=== PATIENT | male | born 1940 | race Two or more races ===

== ENCOUNTER 2023-06-23 15:36 | Outpatient (RCR) | payer OTHER, SELFPAY | END 2023-07-14 15:49 | disposition home or self-care (01) | LOC: MM 15:36 | PROVIDERS: Visit Provider Internal Medicine | DX: Z51.81 Encounter for therapeutic drug level monitoring (principal); Z79.01 Long term (current) use of anticoagulants; I48.20 Chronic atrial fibrillation, unspecified ==

== ENCOUNTER 2023-07-19 09:17 | Outpatient (OUT) | payer OTHER, SELFPAY ==
[2023-07-19 10:03] LABS: INR 2.19; Prothrombin Time 22.2 sec (9.0-11.6)
== END 2023-07-19 09:18 | disposition home or self-care (01) ==
LOC: LAB 09:19
PROVIDERS: Family Medicine
DX: Z51.81 Encounter for therapeutic drug level monitoring (principal); I48.20 Chronic atrial fibrillation, unspecified; Z79.01 Long term (current) use of anticoagulants
CPT/HCPCS: 36415; 85610

== ENCOUNTER 2023-08-15 02:15 | Outpatient (RCR) | payer OTHER, SELFPAY | END 2023-09-13 17:32 | disposition home or self-care (01) | LOC: MM 02:15 | PROVIDERS: Visit Provider Internal Medicine | DX: Z51.81 Encounter for therapeutic drug level monitoring (principal); Z79.01 Long term (current) use of anticoagulants; I48.20 Chronic atrial fibrillation, unspecified | CPT/HCPCS: 85610; G0463 ==

== ENCOUNTER 2023-08-21 14:45 | Inpatient (IN) | payer OTHER, SELFPAY ==
[2023-08-21] VITALS (11 sets, daily range): BP systolic 150–172; BP diastolic 72–87; PULSE 69–87; RESP 18–20; TEMP 36.8–36.9; O2SAT 95–99; BMI 24.4; BMI 24.8
--- NOTE | 2023-08-21 14:53 | CT_ITS ---
The [address] [address] Patient Name: INDIANA ZABALA MRN: [id number] date: 1940 Sex: M Assigned Patient Location: ER Current Patient Location: ER Accession/Order Number: [id number] Exam Date: 08/21/2023 14:50 Report Date: 08/21/2023 15:13 At the request of: KAYE BARNETT Procedure: CT stroke head/brain wo con EXAM: CT stroke head/brain wo con HISTORY: Altered mental status COMPARISON: None. TECHNIQUE: Axial CT scans through the head were obtained without IV contrast administration. Dose reduction techniques were achieved by using: automated exposure control and/or adjustment of mA and /or kV according to patient size and/or use of iterative reconstruction technique. FINDINGS: There is no evidence of acute intracranial hemorrhage or abnormal extra-axial fluid collection. No mass effect or midline shift is seen. There is no evidence of large acute territorial infarction. There is no hydrocephalus. Moderate enlargement of the ventricles and sulci, consistent with age appropriate cerebral atrophy. Mild low-attenuation patchy areas are present in supratentorial white matter, likely represents chronic microvascular ischemia. There are atherosclerotic calcifications of intracranial carotid arteries. To the limit of CT, the posterior fossa appears unremarkable. No definite acute fracture is identified. Soft tissues are unremarkable. The visualized orbits show no abnormal mass. There is small air-fluid level in the partially visualized right maxillary sinus and partial opacifications of ethmoid air cells.. Mastoid air cells are clear. CT/CT stroke head/brain wo con IMPRESSION: No CT evidence of acute intracranial abnormality. If there is sufficient clinical concern for acute brain parenchymal pathology, consider MRI for further evaluation. Moderate cerebral atrophy. Incidental small air-fluid level in the partially visualized right maxillary sinus, suggestive of acute sinusitis. Electronically authenticated by: BENEDICT FROST Date: 08/21/2023 15:13
[2023-08-21 14:58] LABS: Glucometer 88 mg/dL (74-106)
--- NOTE | 2023-08-21 15:00 | ED_ITS ---
HPI - Neuro Symptoms/Deficit General Chief Complaint: Neuro Symptoms/Deficit Stated Complaint: CVA SYMPTOMS/ALTERED MENTAL STATUS Time Seen by Provider: 08/21/23 14:56 Mode of arrival: ambulance History of Present Illness HPI Narrative: Patient brought in by EMS after the noticed that the patient had slurred speech and was acutely confused. EMS reported normal blood sugar = 94 No recent injury/fall. Related Data Home Medications Medication Instructions Recorded Confirmed atenolol 25 mg tablet 25 mg PO DAILY 08/21/23 08/21/23 glimepiride 2 mg tablet 2 mg PO DAILY 08/21/23 08/21/23 levothyroxine 25 mcg tablet 25 mcg PO QAM 08/21/23 08/21/23 meloxicam 15 mg tablet 15 mg PO DAILY 08/21/23 08/21/23 omeprazole 40 mg capsule,delayed 40 mg PO DAILY 08/21/23 08/21/23 release pravastatin 40 mg tablet 40 mg PO DAILY 08/21/23 08/21/23 sildenafil 100 mg tablet 100 mg PO DAILY PRN sexual activity 08/21/23 08/21/23 tamsulosin 0.4 mg capsule 0.4 mg PO DAILY 08/21/23 08/21/23 warfarin 5 mg tablet (Jantoven) 5 mg PO DAILY 08/21/23 08/21/23 Allergies Allergy/AdvReac Type Severity Reaction Status Date / Time No Known Drug Allergies Allergy Verified 08/21/23 15:00 [facility] Medical History (Updated 08/21/23 @ 16:58 by Kaye Barnett) Atrial fibrillation ?I48.91 - Unspecified atrial fibrillation (ICD-10) Diabetes ?E11.9 - Type 2 diabetes mellitus without complications (ICD-10) High cholesterol ?E78.00 - Pure hypercholesterolemia, unspecified (ICD-10) Exam Narrative Exam Narrative: Nurses notes and vital signs reviewed and patient is not hypoxic. afebrile General: Well-appearing and in no apparent distress. GCS = 15 Skin: Warm, dry, no pallor noted. No rash. Head: Normocephalic, atraumatic. Neck: Supple, non-tender. Eye: Pupils are equal, round and EOMI. No scleral icterus. Ears, Nose, Mouth, and Throat: TM are clear, no nasal mucosal hypertrophy. Oral mucosa is moist, no posterior oropharynx erythema, uvula is mid-line Cardiovascular: Regular Rate and Rhythm without murmur, gallop or rub. Respiratory: No accessory muscle use or respiratory distress. Lungs are clear to auscultation, no wheezing, rales or rhonchi Chest Wall: no tenderness Back: No midline thoracic or lumbar vertebral tenderness. No CVA tenderness Musculoskeletal: normal ROM, no calf or popliteal tenderness, no lower extremity edema/swelling GI: Abdomen is soft, non-distended. Normal bowel sounds. No masses appreciated. No tenderness to palpation. No rebound, guarding, or rigidity noted. Neurological: Alert. oriented to name only. Does not know time. Cannot answer some questions. No slurred speech is noted.. No facial asymmetry or cranial nerve dysfunction observed. No truncal ataxia. follows commands.Moves all extremities with expected strength. No pronator drift. No lower extremity drift.. Sensation intact. no neglect. Has difficulty repeating words that I asked him to remember Psychiatric: Cooperative and interactive. Normal mood and affect. Constitutional Vital Signs, click to edit/add: Last Vital Signs Temp 98.2 F 08/21/23 14:50 Pulse 87 08/21/23 16:19 Resp 20 08/21/23 16:19 BP 168/81 H 08/21/23 16:19 Pulse Ox 99 08/21/23 16:19 O2 Del Method Room Air 08/21/23 15:18 Course Vital Signs Vital signs: Vital Signs Temperature 98.2 F 08/21/23 14:50 Pulse Rate 81 08/21/23 14:50 Respiratory Rate 18 08/21/23 14:50 Blood Pressure 150/79 H 08/21/23 14:50 Pulse Oximetry 97 08/21/23 14:50 Oxygen Delivery Method Room Air 08/21/23 14:50 Temperature 98.2 F 08/21/23 14:50 Pulse Rate 87 08/21/23 16:19 Respiratory Rate 20 08/21/23 16:19 Blood Pressure 168/81 H 08/21/23 16:19 Pulse Oximetry 99 08/21/23 16:19 Oxygen Delivery Method Room Air 08/21/23 15:18 MDM - Neuro Symptoms/Deficit MDM Narrative Medical decision making narrative: the patient was immediately sent for noncontrast CT scanning of the brain per stroke protocol. Patient was placed on groundwater monitoring technician and EKG obtained. Blood drawn and sent for evaluation. noncontrast CT did not show acute cranial pathology that might account for patient's symptoms. His blood testing showed low sodium at 121. The remainder of his testing was essentially unremarkable aside from minimally low magnesium. He was given normal saline IV fluid for his low sodium and also given IV magnesium. I discussed the results with the patient's as the patient was too confused to understand. He will be admitted to Dr. Trammell's service, [facility], inpatient, telemetry monitoring for further treatment and evaluation of his hyponatremia and confusion. Lab Data Attestation: I reviewed the patient's lab results. Labs: Lab Results 08/21/23 08/21/23 08/21/23 Range/Units 03:22 14:57 15:11 WBC 6.3 (4.0-11.0) 10^3/uL RBC 4.04 L (4.70-6.10) 10^6/uL Hgb 12.9 L (14.0-18.0) g/dL Hct 36.2 L (42.0-54.0) % MCV 89.6 (80.0-94.0) fL MCH 31.9 (25.9-34.0) pg MCHC 35.6 H (29.9-35.2) g/dL RDW 11.9 (11.0-15.0) % Plt Count 155 (150-450) 10^3/uL MPV 11.1 (9.5-13.5) fL Neut % (Auto) 65.9 (43.0-75.0) % Lymph % (Auto) 20.9 (20.5-60.0) % [place] % (Auto) 11.1 (1.7-12.0) % Eos % (Auto) 1.1 (0.9-7.0) % Baso % (Auto) 0.8 (0.2-2.0) % Neut # (Auto) 4.2 (1.4-6.5) 10^3/uL Lymph # (Auto) 1.3 (1.2-3.8) 10^3/uL [place] # (Auto) 0.7 (0.3-0.8) 10^3/uL Eos # (Auto) 0.1 (0.0-0.7) 10^3/uL Baso # (Auto) 0.1 (0.0-0.1) 10^3/uL Abs Immat Gran (auto) 0.01 (0.00-0.03) 10^3/uL Imm/Tot Granulo (auto) 0.2 (0.0-0.5) % Sodium 121 L* (136-145) mmol/L Potassium 4.8 (3.5-5.1) mmol/L Chloride 87 L (98-107) mmol/L Carbon Dioxide 25.6 (21.0-32.0) mmol/L Anion Gap 13.2 BUN 12.0 (7.0-18.0) mg/dL Creatinine 0.92 (0.70-1.30) mg/dL Est GFR ( Amer) >60 (>=60) Est GFR (Non-Af Amer) >60 (>=60) BUN/Creatinine Ratio 13.0 Glucose 85 (74-106) mg/dL Calcium 8.9 (8.5-10.1) mg/dL Magnesium 1.6 L (1.8-2.4) mg/dL Total Bilirubin 1.4 H (0.2-1.0) mg/dL AST 30 (15-37) U/L ALT 24 (16-63) U/L Alkaline Phosphatase 87 (46-116) U/L Ammonia (11-32) umol/L Troponin I High Sens 9.2 (4.0-76.1) pg/mL Total Protein 7.1 (6.4-8.2) g/dL Albumin 4.0 (3.4-5.0) g/dL Globulin 3.1 g/dL Albumin/Globulin Ratio 1.3 TSH 2.018 (0.358-3.740) uIU/mL Urine Color Lt. yellow (YELLOW) Urine Clarity Clear (CLEAR) Urine pH 7.0 (5.0-9.0) Ur Specific [place] 1.020 (1.005-1.025) Urine Protein Negative (NEG/TRACE) mg/dL Urine Glucose (UA) Negative (NEGATIVE) mg/dL Urine Ketones 40 A (NEGATIVE) mg/dL Urine Occult Blood Negative (NEGATIVE) Urine Nitrite Negative (NEGATIVE) Urine Bilirubin Negative (NEGATIVE) Urine Urobilinogen 1.0 (0.2-1.0) EU/dL Ur Leukocyte Esterase Negative (NEGATIVE) Urine Opiates Screen Negative (NEGATIVE) Ur Buprenorphine Scrn Negative (NEGATIVE) Ur Oxycodone Screen Negative (NEGATIVE) Urine Methadone Screen Negative (NEGATIVE) Ur Propoxyphene Screen Negative (NEGATIVE) Ur Barbiturates Screen Negative (NEGATIVE) U Tricyclic Antidepress Negative (NEGATIVE) Ur Phencyclidine Scrn Negative (NEGATIVE) Ur Amphetamines Screen Negative (NEGATIVE) U Methamphetamines Scrn Negative (NEGATIVE) U Benzodiazepines Scrn Negative (NEGATIVE) Urine Cocaine Screen Negative (NEGATIVE) U Cannabinoids Screen Negative (NEGATIVE) Ethanol Quant <3 mg/dL POC Glucose 88 (74-106) mg/dL 08/21/23 Range/Units 15:39 WBC (4.0-11.0) 10^3/uL RBC (4.70-6.10) 10^6/uL Hgb (14.0-18.0) g/dL Hct (42.0-54.0) % MCV (80.0-94.0) fL MCH (25.9-34.0) pg MCHC (29.9-35.2) g/dL RDW (11.0-15.0) % Plt Count (150-450) 10^3/uL MPV (9.5-13.5) fL Neut % (Auto) (43.0-75.0) % Lymph % (Auto) (20.5-60.0) % [place] % (Auto) (1.7-12.0) % Eos % (Auto) (0.9-7.0) % Baso % (Auto) (0.2-2.0) % Neut # (Auto) (1.4-6.5) 10^3/uL Lymph # (Auto) (1.2-3.8) 10^3/uL [place] # (Auto) (0.3-0.8) 10^3/uL Eos # (Auto) (0.0-0.7) 10^3/uL Baso # (Auto) (0.0-0.1) 10^3/uL Abs Immat Gran (auto) (0.00-0.03) 10^3/uL Imm/Tot Granulo (auto) (0.0-0.5) % Sodium (136-145) mmol/L Potassium (3.5-5.1) mmol/L Chloride (98-107) mmol/L Carbon Dioxide (21.0-32.0) mmol/L Anion Gap BUN (7.0-18.0) mg/dL Creatinine (0.70-1.30) mg/dL Est GFR ( Amer) (>=60) Est GFR (Non-Af Amer) (>=60) BUN/Creatinine Ratio Glucose (74-106) mg/dL Calcium (8.5-10.1) mg/dL Magnesium (1.8-2.4) mg/dL Total Bilirubin (0.2-1.0) mg/dL AST (15-37) U/L ALT (16-63) U/L Alkaline Phosphatase (46-116) U/L Ammonia 15 (11-32) umol/L Troponin I High Sens (4.0-76.1) pg/mL Total Protein (6.4-8.2) g/dL Albumin (3.4-5.0) g/dL Globulin g/dL Albumin/Globulin Ratio TSH (0.358-3.740) uIU/mL Urine Color (YELLOW) Urine Clarity (CLEAR) Urine pH (5.0-9.0) Ur Specific [place] (1.005-1.025) Urine Protein (NEG/TRACE) mg/dL Urine Glucose (UA) (NEGATIVE) mg/dL Urine Ketones (NEGATIVE) mg/dL Urine Occult Blood (NEGATIVE) Urine Nitrite (NEGATIVE) Urine Bilirubin (NEGATIVE) Urine Urobilinogen (0.2-1.0) EU/dL Ur Leukocyte Esterase (NEGATIVE) Urine Opiates Screen (NEGATIVE) Ur Buprenorphine Scrn (NEGATIVE) Ur Oxycodone Screen (NEGATIVE) Urine Methadone Screen (NEGATIVE) Ur Propoxyphene Screen (NEGATIVE) Ur Barbiturates Screen (NEGATIVE) U Tricyclic Antidepress (NEGATIVE) Ur Phencyclidine Scrn (NEGATIVE) Ur Amphetamines Screen (NEGATIVE) U Methamphetamines Scrn (NEGATIVE) U Benzodiazepines Scrn (NEGATIVE) Urine Cocaine Screen (NEGATIVE) U Cannabinoids Screen (NEGATIVE) Ethanol Quant mg/dL POC Glucose (74-106) mg/dL Imaging Data CT scan - head: Radiologist's impression: Patient Name: INDIANA ZABALA MRN: [facility]:[id number] date: 1940 Sex: M Assigned Patient Location: ER Current Patient Location: ER Accession/Order Number: [id number] Exam Date: 08/21/2023 14:50 Report Date: 08/21/2023 15:13 At the request of: KAYE BARNETT Procedure: CT stroke head/brain wo con EXAM: CT stroke head/brain wo con HISTORY: Altered mental status COMPARISON: None. TECHNIQUE: Axial CT scans through the head were obtained without IV contrast administration. Dose reduction techniques were achieved by using: automated exposure control and/or adjustment of mA and /or kV according to patient size and/or use of iterative reconstruction technique. FINDINGS: There is no evidence of acute intracranial hemorrhage or abnormal extra-axial fluid collection. No mass effect or midline shift is seen. There is no evidence of large acute territorial infarction. There is no hydrocephalus. Moderate enlargement of the ventricles and sulci, consistent with age appropriate cerebral atrophy. Mild low-attenuation patchy areas are present in supratentorial white matter, likely represents chronic microvascular ischemia. There are atherosclerotic calcifications of intracranial carotid arteries. To the limit of CT, the posterior fossa appears unremarkable. No definite acute fracture is identified. Soft tissues are unremarkable. The visualized orbits show no abnormal mass. There is small air-fluid level in the partially visualized right maxillary sinus and partial opacifications of ethmoid air cells.. Mastoid air cells are clear. IMPRESSION: No CT evidence of acute intracranial abnormality. If there is sufficient clinical concern for acute brain parenchymal pathology, consider MRI for further evaluation. Moderate cerebral atrophy. Incidental small air-fluid level in the partially visualized right maxillary sinus, suggestive of acute sinusitis. Electronically authenticated by: BENEDICT UNLU Date: 08/21/2023 15:13 Chest x-ray: Radiologist's impression: Patient Name: INDIANA ZABALA MRN: [id number] date: 1940 Sex: M Assigned Patient Location: ER Current Patient Location: ER Accession/Order Number: [id number] Exam Date: 08/21/2023 15:12 Report Date: 08/21/2023 15:31 At the request of: KAYE BARNETT Procedure: XR chest 1V XR chest 1V CLINICAL HISTORY: altered mentation. COMPARISON: None Available. TECHNIQUE: Single AP portable upright view of the chest. FINDINGS: Lungs are hyperinflated and clear. No pleural effusion or pneumothorax. Cardiomediastinal silhouette size is normal. Atherosclerotic aorta. Osteopenia. Thoracic spondylosis. Anterior cervical spinal fusion hardware. IMPRESSION: No acute cardiopulmonary process. Electronically authenticated by: CHALINO LONDON Date: 08/21/2023 15:31 ECG Data Interpretation: EKG interpretation: Emergency Department physician interpretation. rate controlled atrial fibrillation at 79bpm. Left axis, no ST segment elevation or depression. Discharge Plan Discharge Chief Complaint: Neuro Symptoms/Deficit Clinical Impression: Acute confusion, Acute hyponatremia, Hypomagnesemia Patient Disposition: Admitted As Inpatient Time of Disposition Decision: 16:37 Prescriptions / Home Meds: No Action atenolol 25 mg tablet 25 mg PO DAILY glimepiride 2 mg tablet 2 mg PO DAILY levothyroxine 25 mcg tablet 25 mcg PO QAM meloxicam 15 mg tablet 15 mg PO DAILY omeprazole 40 mg capsule,delayed release(DR/EC) 40 mg PO DAILY pravastatin 40 mg tablet 40 mg PO DAILY sildenafil 100 mg tablet 100 mg PO DAILY PRN (Reason: sexual activity) tamsulosin 0.4 mg capsule 0.4 mg PO DAILY warfarin [Jantoven] 5 mg tablet 5 mg PO DAILY Additional Instructions: dr trammell, inpt, [facility], tele Referrals: Physician,Non-Staff, MD [Primary Care Provider] - 1 week
--- NOTE | 2023-08-21 15:02 | XR_ITS ---
The [address] [address] Patient Name: INDIANA ZABALA MRN: [id number] date: 1940 Sex: M Assigned Patient Location: ER Current Patient Location: ER Accession/Order Number: [id number] Exam Date: 08/21/2023 15:12 Report Date: 08/21/2023 15:31 At the request of: KAYE BARNETT Procedure: XR chest 1V XR chest 1V CLINICAL HISTORY: altered mentation. COMPARISON: None Available. TECHNIQUE: Single AP portable upright view of the chest. FINDINGS: Lungs are hyperinflated and clear. No pleural effusion or pneumothorax. Cardiomediastinal silhouette size is normal. Atherosclerotic aorta. Osteopenia. Thoracic spondylosis. Anterior cervical spinal fusion hardware. XR/XR chest 1V IMPRESSION: No acute cardiopulmonary process. Electronically authenticated by: CHALINO LONDON Date: 08/21/2023 15:31
--- NOTE | 2023-08-21 15:02 | ECG_ITS ---
The [facility] Test Date: 2023-08-21 Pat Name: INDIANA ZABALA Department: Room: - Gender: Male Screed Operator: : 1940 Requested By: Vargas Cooper Order Number: [id number] Reading MD: NATALEE INMAN Measurements Intervals [place] Rate: 79 P: -85969 NV: -05476 QRS: -30 QRSD: 98 T: 39 QT: 380 QTc: 415 Interpretive Statements 1210 Atrial fibrillation 7202 Moderate left axis deviation 0102 ARTIFACT PRESENT 9140 abnormal rhythm ECG No previous ECG available for comparison Electronically Signed On 08-21-2023 18:24:07 EDT by NATALEE INMAN
--- NOTE | 2023-08-21 15:25 | PC.NURSE ---
at bedside, informs this nurse that pt is a active person and has not shown any signs of being sick recently. pt was fine this morning and at 10:30 the confusion started and this confusion progressed thru the day and with then called 911. While at bedside talking to pt and informs this nurse pt is improving. notified of this information.
--- NOTE | 2023-08-21 15:26 | PC.NURSE ---
Patient incontinent of urine on arrival, patient cleansed and straight cath obtained for u/a and sent to lab. Urine slightly dark in color, no odor noted.
--- NOTE | 2023-08-21 15:27 | CT_ITS ---
[address] [address] Patient Name: INDIANA ZABALA MRN: [id number] date: 1940 Sex: M Assigned Patient Location: ER Current Patient Location: .[facility] Accession/Order Number: [id number] Exam Date: 08/21/2023 16:08 Report Date: 08/21/2023 17:21 At the request of: KAYE BARNETT Procedure: CT angio head CTA HEAD/NECK. HISTORY: altered mentation, slurred speech COMPARISON: None. TECHNIQUE: CT angiogram of the head and neck obtained after administration of 75 mL of nonionic intravenous contrast material, Isovue-300. Multiplanar and volume rendered 3-D reformats were created. NASCET criteria was used for evaluation of luminal stenosis. 3-D vascular images were constructed on a separate workstation. FINDINGS: THORACIC AORTA: Normal. There is a normal anatomy at the origin of the great vessels. RIGHT COMMON CAROTID ARTERY: No significant stenosis. RIGHT EXTERNAL CAROTID ARTERY: No significant stenosis. RIGHT INTERNAL CAROTID ARTERY: No significant stenosis. LEFT COMMON CAROTID ARTERY: No significant stenosis. LEFT EXTERNAL CAROTID ARTERY: No significant stenosis. LEFT INTERNAL CAROTID ARTERY: No significant stenosis. There is approximately 20% stenosis of the proximal ICA. RIGHT VERTEBRAL ARTERY: No significant stenosis. LEFT VERTEBRAL ARTERY: No significant stenosis. [place]: The bilateral intracranial internal carotid arteries, anterior cerebral arteries, middle cerebral arteries and anterior and posterior communicating arteries are normal. POSTERIOR INTRACRANIAL CIRCULATION: The basilar artery and posterior cerebral arteries are patent, without stenosis or occlusion. DURAL SINUSES: Patent. 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 No intracranial AVM. LUNG APICES: The lung apices are clear. SOFT TISSUES: The prevertebral soft tissues are normal. No soft tissue inflammation. OSSEOUS STRUCTURES: No acute osseous abnormality throughout the imaged axial skeleton and skull base. CT/CT angio head IMPRESSION: 1. No high-grade or hemodynamically flow-limiting stenosis of the major arteries of the head and neck. 2. 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 Electronically authenticated by: VIKKI MELTON Date: 08/21/2023 17:21
--- NOTE | 2023-08-21 15:27 | CT_ITS ---
[address] [address] Patient Name: INDIANA ZABALA MRN: [id number] date: 1940 Sex: M Assigned Patient Location: ER Current Patient Location: .[facility] Accession/Order Number: [id number] Exam Date: 08/21/2023 16:08 Report Date: 08/21/2023 17:21 At the request of: KYAE BARNETT Procedure: CT angio neck CTA HEAD/NECK. HISTORY: altered mentation, slurred speech COMPARISON: None. TECHNIQUE: CT angiogram of the head and neck obtained after administration of 75 mL of nonionic intravenous contrast material, Isovue-300. Multiplanar and volume rendered 3-D reformats were created. NASCET criteria was used for evaluation of luminal stenosis. 3-D vascular images were constructed on a separate workstation. FINDINGS: THORACIC AORTA: Normal. There is a normal anatomy at the origin of the great vessels. RIGHT COMMON CAROTID ARTERY: No significant stenosis. RIGHT EXTERNAL CAROTID ARTERY: No significant stenosis. RIGHT INTERNAL CAROTID ARTERY: No significant stenosis. LEFT COMMON CAROTID ARTERY: No significant stenosis. LEFT EXTERNAL CAROTID ARTERY: No significant stenosis. LEFT INTERNAL CAROTID ARTERY: No significant stenosis. There is approximately 20% stenosis of the proximal ICA. RIGHT VERTEBRAL ARTERY: No significant stenosis. LEFT VERTEBRAL ARTERY: No significant stenosis. [place]: The bilateral intracranial internal carotid arteries, anterior cerebral arteries, middle cerebral arteries and anterior and posterior communicating arteries are normal. POSTERIOR INTRACRANIAL CIRCULATION: The basilar artery and posterior cerebral arteries are patent, without stenosis or occlusion. DURAL SINUSES: Patent. 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 No intracranial AVM. LUNG APICES: The lung apices are clear. SOFT TISSUES: The prevertebral soft tissues are normal. No soft tissue inflammation. OSSEOUS STRUCTURES: No acute osseous abnormality throughout the imaged axial skeleton and skull base. CT/CT angio neck IMPRESSION: 1. No high-grade or hemodynamically flow-limiting stenosis of the major arteries of the head and neck. 2. 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 Electronically authenticated by: VIKKI MELTON Date: 08/21/2023 17:21
[2023-08-21 15:30] LABS: Basophils Absolute Auto 0.1 10^3/uL (0.0-0.1); Basophils Percent Auto 0.8 % (0.2-2.0); Eosinophils Absolute Auto 0.1 10^3/uL (0.0-0.7); Eosinophils Percent Auto 1.1 % (0.9-7.0); Hematocrit 36.2 % (42.0-54.0); Hemoglobin 12.9 g/dL (14.0-18.0); Immature Granulocytes Abs Auto 0.01 10^3/uL (0.00-0.03); Immature Granulocytes Pct Auto 0.2 % (0.0-0.5); Lymphocytes Absolute Auto 1.3 10^3/uL (1.2-3.8); Lymphocytes Percent Auto 20.9 % (20.5-60.0); Mean Corpuscular HGB Conc 35.6 g/dL (29.9-35.2); Mean Corpuscular Hemoglobin 31.9 pg (25.9-34.0); Mean Corpuscular Volume 89.6 fL (80.0-94.0); Mean Platelet Volume 11.1 fL (9.5-13.5); Monocytes Absolute Auto 0.7 10^3/uL (0.3-0.8); Monocytes Percent Auto 11.1 % (1.7-12.0); Neutrophils Absolute Auto 4.2 10^3/uL (1.4-6.5); Neutrophils Percent Auto 65.9 % (43.0-75.0); Platelet Count 155 10^3/uL (150-450); Red Blood Count 4.04 10^6/uL (4.70-6.10); Red Cell Distribution Width 11.9 % (11.0-15.0); White Blood Count 6.3 10^3/uL (4.0-11.0)
[2023-08-21] MEDS: 0.9 % SODIUM CHLORIDE 1,000 ML 250 ML IV (15:30)
[2023-08-21 15:31] LABS: Bilirubin Urine NEGATIVE (NEGATIVE); Blood Urine NEGATIVE (NEGATIVE); Clarity Urine CLEAR (CLEAR); Color Urine LT. YELLOW (YELLOW); Glucose Urine UA NEGATIVE (NEGATIVE); Ketones Urine 40 mg/dL (NEGATIVE); Leukocyte Esterase Urine NEGATIVE (NEGATIVE); Nitrite Urine NEGATIVE (NEGATIVE); Protein Urine NEGATIVE (NEG/TRACE)
[2023-08-21 15:32] LABS: Urine Microscopic Indicated NO
[2023-08-21 15:43] LABS: Amphetamine Screen Urine NEGATIVE (NEGATIVE); Barbiturates Screen Urine NEGATIVE (NEGATIVE); Benzodiazepines Screen Urine NEGATIVE (NEGATIVE); Buprenorphine Screen Urine NEGATIVE (NEGATIVE); Cannabinoid Screen Urine NEGATIVE (NEGATIVE); Cocaine Screen Urine NEGATIVE (NEGATIVE); Methadone Screen Urine NEGATIVE (NEGATIVE); Methamphetamines Screen Urine NEGATIVE (NEGATIVE); Opiate Screen Urine NEGATIVE (NEGATIVE); Oxycodone Screen Urine NEGATIVE (NEGATIVE); Phencyclidine Screen Urine NEGATIVE (NEGATIVE); Tricyclic Antidepressant Urine NEGATIVE (NEGATIVE)
[2023-08-21 15:52] LABS: Ammonia 15 umol/L (11-32)
[2023-08-21 15:55] LABS: Alanine Aminotransferase 24 U/L (16-63); Albumin Globulin Ratio 1.3; Alkaline Phosphatase 87 U/L (46-116); Anion Gap 13.2; Aspartate Amino Transferase 30 U/L (15-37); Bilirubin Total 1.4 mg/dL (0.2-1.0); Calcium 8.9 mg/dL (8.5-10.1); Carbon Dioxide 25.6 mmol/L (21.0-32.0); Chloride 87 mmol/L (98-107); Estimated GFR (African America >60 (>=60); Estimated GFR (Non-African Ame >60 (>=60); Ethanol <3 mg/dL; Globulin 3.1 g/dL; Glucose 85 mg/dL (74-106); Magnesium 1.6 mg/dL (1.8-2.4); Potassium 4.8 mmol/L (3.5-5.1); Thyroid Stimulating Hormone 2.018 uIU/mL (0.358-3.740); Total Protein 7.1 g/dL (6.4-8.2); Troponin I High Sensitivity 9.2 pg/mL (4.0-76.1)
[2023-08-21 15:57] LABS: Sodium 121 mmol/L (136-145)
[2023-08-21] MEDS: MAGNESIUM SULFATE IN WATER 2 GM/50 ML PREMIX IV (16:41)
--- NOTE | 2023-08-21 18:06 | PC.NURSE ---
Hearing aides sent home with
[2023-08-21] MEDS: 0.9 % SODIUM CHLORIDE 1,000 ML 100 ML IV (20:22)
[2023-08-21 20:40] LABS: Glucometer 122 mg/dL (74-106)
[2023-08-21] MEDS: HYDRALAZINE HCL 20 MG/ML VIAL 10 MG IVP (20:40)
[2023-08-21] MEDS: ACETAMINOPHEN 500 MG TABLET 1000 MG PO (22:18)
[2023-08-22] VITALS (25 sets, daily range): BP systolic 142–172; BP diastolic 60–91; PULSE 58–99; RESP 14–20; TEMP 36.4–36.9; O2SAT 97–100
[2023-08-22 04:29] LABS: Basophils Percent Auto 0.7 % (0.2-2.0); Eosinophils Absolute Auto 0.1 10^3/uL (0.0-0.7); Eosinophils Percent Auto 1.6 % (0.9-7.0); Hematocrit 35.6 % (42.0-54.0); Immature Granulocytes Abs Auto 0.01 10^3/uL (0.00-0.03); Immature Granulocytes Pct Auto 0.2 % (0.0-0.5); Lymphocytes Absolute Auto 1.3 10^3/uL (1.2-3.8); Lymphocytes Percent Auto 24.5 % (20.5-60.0); Mean Corpuscular HGB Conc 36.5 g/dL (29.9-35.2); Mean Corpuscular Hemoglobin 31.9 pg (25.9-34.0); Mean Corpuscular Volume 87.5 fL (80.0-94.0); Mean Platelet Volume 10.9 fL (9.5-13.5); Monocytes Absolute Auto 0.7 10^3/uL (0.3-0.8); Monocytes Percent Auto 13.5 % (1.7-12.0); Neutrophils Absolute Auto 3.3 10^3/uL (1.4-6.5); Neutrophils Percent Auto 59.5 % (43.0-75.0); Platelet Count 158 10^3/uL (150-450); Red Blood Count 4.07 10^6/uL (4.70-6.10); Red Cell Distribution Width 11.6 % (11.0-15.0); White Blood Count 5.5 10^3/uL (4.0-11.0)
[2023-08-22 04:46] LABS: Alanine Aminotransferase 22 U/L (16-63); Albumin Globulin Ratio 1.2; Albumin Level 3.6 g/dL (3.4-5.0); Alkaline Phosphatase 80 U/L (46-116); Anion Gap 11.4; Aspartate Amino Transferase 25 U/L (15-37); BUN Creatinine Ratio 11.2; Bilirubin Total 1.4 mg/dL (0.2-1.0); Calcium 7.9 mg/dL (8.5-10.1); Carbon Dioxide 23.5 mmol/L (21.0-32.0); Chloride 88 mmol/L (98-107); Estimated GFR (African America >60 (>=60); Estimated GFR (Non-African Ame >60 (>=60); Glucose 92 mg/dL (74-106); Magnesium 1.7 mg/dL (1.8-2.4); Potassium 3.9 mmol/L (3.5-5.1); Total Protein 6.6 g/dL (6.4-8.2)
[2023-08-22 04:49] LABS: INR 1.71; Prothrombin Time 17.6 sec (9.0-11.6)
[2023-08-22 04:53] LABS: Sodium 119 mmol/L (136-145)
[2023-08-22] MEDS: HYDRALAZINE HCL 20 MG/ML VIAL 10 MG IVP (05:09)
[2023-08-22] MEDS: 0.9 % SODIUM CHLORIDE 1,000 ML 100 ML IV ×2 (05:17→15:17)
[2023-08-22] MEDS: LEVOTHYROXINE SODIUM 25 MCG TABLET PO (05:53)
[2023-08-22 07:56] LABS: Glucometer 112 mg/dL (74-106)
[2023-08-22] MEDS: ONDANSETRON PF 4 MG/2 ML VIAL IV (08:43)
[2023-08-22] MEDS: GLIMEPIRIDE 2 MG TABLET PO (09:16)
[2023-08-22] MEDS: ATENOLOL 25 MG TABLET PO (09:17)
[2023-08-22] MEDS: ATORVASTATIN CALCIUM 10 MG TABLET PO (09:17)
[2023-08-22] MEDS: OMEPRAZOLE 40 MG CAPSULE.DR PO (09:17)
[2023-08-22] MEDS: TAMSULOSIN HCL 0.4 MG CAPSULE PO (09:17)
[2023-08-22] MEDS: ACETAMINOPHEN 500 MG TABLET 1000 MG PO (09:19)
[2023-08-22] MEDS: MELOXICAM 7.5 MG TABLET 15 MG PO (09:19)
--- NOTE | 2023-08-22 10:33 | P.HP_ITS ---
H&P: HPI History of Present Illness Chief complaint: Altered mental status Narrative: 83 y/o male to ER with altered mental status. noticed increased confusion and possible slurred speech. Increased weakness and difficulty moving. To ER and CT head negative. Labs showed sodium 121 and magnesium 1.6. Ammonia normal and UA negative. Chest x-ray negative. [place] confusion related to low sodium and admitted. Started IV fluids and resumed home medication. Patient remains confused and poor historian. Labs essentially unchanged overnight. Review of Systems ROS Constitutional Denies: fever, chills or night sweats Cardiovascular Denies: chest pain, palpitations or edema Respiratory Denies: shortness of breath, cough or wheezing Gastrointestinal Denies: abdominal pain, nausea, vomiting or diarrhea Genitourinary Denies: painful urination [facility] Medical History (Updated 08/22/23 @ 10:39 by Rush Vee MD) Acute confusion ?R41.0 - Disorientation, unspecified (ICD-10) Altered mental status ?R41.82 - Altered mental status, unspecified (ICD-10) Atrial fibrillation ?I48.91 - Unspecified atrial fibrillation (ICD-10) Diabetes ?E11.9 - Type 2 diabetes mellitus without complications (ICD-10) High cholesterol ?E78.00 - Pure hypercholesterolemia, unspecified (ICD-10) Social History Gender Identity: male Meds Home Medications and Allergies Home Medications Medication Instructions Recorded Confirmed Type atenolol 25 mg tablet 25 mg PO DAILY 08/21/23 08/21/23 History glimepiride 2 mg tablet 2 mg PO DAILY 08/21/23 08/21/23 History levothyroxine 25 mcg tablet 25 mcg PO QAM 08/21/23 08/21/23 History meloxicam 15 mg tablet 15 mg PO DAILY 08/21/23 08/21/23 History omeprazole 40 mg capsule,delayed 40 mg PO DAILY 08/21/23 08/21/23 History release pravastatin 40 mg tablet 40 mg PO DAILY 08/21/23 08/21/23 History sildenafil 100 mg tablet 100 mg PO DAILY PRN sexual activity 08/21/23 08/21/23 History tamsulosin 0.4 mg capsule 0.4 mg PO DAILY 08/21/23 08/21/23 History warfarin 5 mg tablet (Jantoven) 5 mg PO MOWEFR 08/21/23 08/22/23 History warfarin 2.5 mg tablet (Jantoven) 2.5 mg PO .4 days a week 08/22/23 08/22/23 History Allergies Allergy/AdvReac Type Severity Reaction Status Date / Time No Known Drug Allergies Allergy Verified 08/21/23 15:00 Exam Constitutional Vital Signs, click to edit/add: Last Vital Signs Temp 98.1 F 08/22/23 09:19 Pulse 74 08/22/23 10:00 Resp 20 08/22/23 07:44 BP 161/83 H 08/22/23 07:44 Pulse Ox 100 08/22/23 07:44 O2 Del Method Room Air 08/22/23 07:44 Documenting provider has reviewed patient's vital signs: yes Common normals: no apparent distress, oriented x3 and alert HENMT Common normals: normocephalic Eye Common normals: PERRL and EOMs intact bilaterally Respiratory Common normals: normal respiratory effort and clear to auscultation bilaterally Cardio Common normals: regular rate, no gallops, no murmurs and no rub GI Common normals: Normal to inspection, nondistended, normoactive bowel sounds present and non-tender Extremity Common normals: no pedal edema Results Labs Labs: Short CBC 08/21/23 08/22/23 Range/Units 15:11 03:44 WBC 6.3 5.5 (4.0-11.0) 10^3/uL Hgb 12.9 L 13.0 L (14.0-18.0) g/dL Hct 36.2 L 35.6 L (42.0-54.0) % Plt Count 155 158 (150-450) 10^3/uL BMP 08/21/23 08/22/23 15:11 03:44 Sodium 121 L* 119 L* Potassium 4.8 3.9 Chloride 87 L 88 L Carbon Dioxide 25.6 23.5 BUN 12.0 9.0 Creatinine 0.92 0.80 Glucose 85 92 Calcium 8.9 7.9 L Liver Function 08/21/23 08/22/23 Range/Units 15:11 03:44 Total Bilirubin 1.4 H 1.4 H (0.2-1.0) mg/dL AST 30 25 (15-37) U/L ALT 24 22 (16-63) U/L Alkaline Phosphatase 87 80 (46-116) U/L Albumin 4.0 3.6 (3.4-5.0) g/dL Urine 08/21/23 Range/Units 03:22 Urine Color Lt. yellow (YELLOW) Urine Clarity Clear (CLEAR) Urine pH 7.0 (5.0-9.0) Ur Specific [place] 1.020 (1.005-1.025) Urine Protein Negative (NEG/TRACE) mg/dL Urine Glucose (UA) Negative (NEGATIVE) mg/dL Imaging CT scan - head: Attestation: I have reviewed the pertinent imaging results. Assessment and Plan Assessment and Plan (1) Acute metabolic encephalopathy: (2) Acute hyponatremia: (3) Hypomagnesemia: (4) Type 2 diabetes mellitus with hyperglycemia: (5) Paroxysmal atrial fibrillation: (6) Generalized weakness: Plan Confusion most likely related to low sodium and metabolic encephalopathy. Continue IV fluids and monitor labs. Replace magnesium. If sodium unchanged may need oral sodium chloride. Continue home medication. Monitor BS and vitals. Does not appear to be related to CVA and no weakness or deficits. Add neuro checks. Anticipate 2-3 days in the hospital.
--- NOTE | 2023-08-22 10:41 | CM.NOTE ---
Rounds made with Dr. Vee, no discharge today. Continue IV fluids for low sodium. PT and OT to evaluate pt.
[2023-08-22 11:47] LABS: Glucometer 130 mg/dL (74-106)
[2023-08-22] MEDS: MAGNESIUM SULFATE IN WATER 2 GM/50 ML PREMIX IV (11:57)
--- NOTE | 2023-08-22 12:26 | PC.NURSE ---
Dowd catheter Discontinued with 325cc output, 10cc removed from balloon, balloon was intact and patient tolerated well.
[2023-08-22 14:39] LABS: Anion Gap 13.6; BUN Creatinine Ratio 14.1; Calcium 8.4 mg/dL (8.5-10.1); Chloride 86 mmol/L (98-107); Estimated GFR (African America >60 (>=60); Estimated GFR (Non-African Ame >60 (>=60); Glucose 119 mg/dL (74-106); Magnesium 2.3 mg/dL (1.8-2.4); Potassium 4.6 mmol/L (3.5-5.1)
[2023-08-22 14:49] LABS: Sodium 118 mmol/L (136-145)
--- NOTE | 2023-08-22 16:04 | SWNOTE1 ---
SW met with pt to discuss dc needs. Pt's was in room as well and she answered all questions. Pt was independent at home prior to this and was out mowing the lawn and fixing the drive way. He did not use any DME at home. She stated that pt was also alert and oriented as well. At this time pt has no care coming in to the home to assist. Pt's denies any needs at this time. SW to check back in daily and re-assess pt's needs.
--- NOTE | 2023-08-22 16:42 | PC.NURSE ---
Patient arrives to room 274 per wheelchair from med surg. Stands and pivots to bed with standby assistance. See Vitals and assessment. at bedside.
[2023-08-22] MEDS: SODIUM CHLORIDE 3 % 500 ML 50 ML IV (16:52)
[2023-08-22 17:08] LABS: Glucometer 135 mg/dL (74-106)
--- NOTE | 2023-08-22 17:15 | PM.NEPCN ---
History of Present Illness Reason for Consult Consult date: 08/22/23 Chief Complaint Chief complaint: Altered mental status History of Present Illness Narrative: Pt is an 83 yo man with a history of hypertension and diabetes admitted with AMS. Pt was in his normal state of health until four days ago. He became confused. Unable to obtain history due to altered mental status. Review of Systems ROS Narrative Unable to obtain ROS due to ROS [facility] Medical History Acute confusion ?R41.0 - Disorientation, unspecified (ICD-10) Altered mental status ?R41.82 - Altered mental status, unspecified (ICD-10) Atrial fibrillation ?I48.91 - Unspecified atrial fibrillation (ICD-10) Diabetes ?E11.9 - Type 2 diabetes mellitus without complications (ICD-10) High cholesterol ?E78.00 - Pure hypercholesterolemia, unspecified (ICD-10) Social History Gender Identity: male Meds Home Medications and Allergies Home Medications Medication Instructions Recorded Confirmed Type atenolol 25 mg tablet 25 mg PO DAILY 08/21/23 08/21/23 History glimepiride 2 mg tablet 2 mg PO DAILY 08/21/23 08/21/23 History levothyroxine 25 mcg tablet 25 mcg PO QAM 08/21/23 08/21/23 History meloxicam 15 mg tablet 15 mg PO DAILY 08/21/23 08/21/23 History omeprazole 40 mg capsule,delayed 40 mg PO DAILY 08/21/23 08/21/23 History release pravastatin 40 mg tablet 40 mg PO DAILY 08/21/23 08/21/23 History sildenafil 100 mg tablet 100 mg PO DAILY PRN sexual activity 08/21/23 08/21/23 History tamsulosin 0.4 mg capsule 0.4 mg PO DAILY 08/21/23 08/21/23 History warfarin 5 mg tablet (Jantoven) 5 mg PO MOWEFR 08/21/23 08/22/23 History warfarin 2.5 mg tablet (Jantoven) 2.5 mg PO .4 days a week 08/22/23 08/22/23 History Allergies Allergy/AdvReac Type Severity Reaction Status Date / Time No Known Drug Allergies Allergy Verified 08/21/23 15:00 Exam Constitutional: Vital Signs, click to edit/add: Last Vital Signs Temp 98 F 08/22/23 16:47 Pulse 66 08/22/23 16:47 Resp 16 08/22/23 16:47 BP 142/91 H 08/22/23 16:47 Pulse Ox 98 08/22/23 16:47 O2 Del Method Room Air 08/22/23 16:47 Common normals: no apparent distress HENMT: Common normals: normocephalic GI: Common normals: soft to palpation and non-tender Extremity: Common normals: normal to inspection and full ROM Neuro: Eleni Coma Scale: other (Alert only to self ) Results Lab Results Lab results: Most recent lab results Calcium 8.4 mg/dL (8.5-10.1) L 08/22/23 14:03 Magnesium 2.3 mg/dL (1.8-2.4) 08/22/23 14:03 Sodium 118, k 4.6, Glucose 119 Assessment and Plan Assessment and Plan (1) Acute hyponatremia: Assessment and Plan: euvolemic symptomatic Possible SIADH given worsening with NS 3%saline bolus for 2 hr for 100 ml only then repeat sodium. Strict I/O (2) Acute metabolic encephalopathy: Assessment and Plan: 2/2 hyponatremia (3) Hypomagnesemia: (4) Type 2 diabetes mellitus with hyperglycemia: (5) Paroxysmal atrial fibrillation: (6) Generalized weakness:
[2023-08-22] MEDS: WARFARIN SODIUM 5 MG TABLET PO (17:32)
[2023-08-22 21:00] LABS: Alanine Aminotransferase 21 U/L (16-63); Albumin Globulin Ratio 1.2; Albumin Level 3.7 g/dL (3.4-5.0); Alkaline Phosphatase 87 U/L (46-116); Anion Gap 13.3; Aspartate Amino Transferase 26 U/L (15-37); BUN Creatinine Ratio 12.5; Bilirubin Total 1.3 mg/dL (0.2-1.0); Calcium 8.7 mg/dL (8.5-10.1); Carbon Dioxide 24.4 mmol/L (21.0-32.0); Chloride 87 mmol/L (98-107); Estimated GFR (African America >60 (>=60); Estimated GFR (Non-African Ame >60 (>=60); Globulin 3.2 g/dL; Glucose 121 mg/dL (74-106); Potassium 4.7 mmol/L (3.5-5.1); Total Protein 6.9 g/dL (6.4-8.2)
[2023-08-22 21:04] LABS: Sodium 120 mmol/L (136-145)
[2023-08-22 22:40] LABS: Alanine Aminotransferase 20 U/L (16-63); Albumin Globulin Ratio 1.2; Albumin Level 3.7 g/dL (3.4-5.0); Alkaline Phosphatase 81 U/L (46-116); Anion Gap 10.1; Aspartate Amino Transferase 24 U/L (15-37); BUN Creatinine Ratio 10.3; Bilirubin Total 1.3 mg/dL (0.2-1.0); Calcium 8.2 mg/dL (8.5-10.1); Carbon Dioxide 24.1 mmol/L (21.0-32.0); Chloride 88 mmol/L (98-107); Estimated GFR (African America >60 (>=60); Estimated GFR (Non-African Ame >60 (>=60); Globulin 3.2 g/dL; Glucose 103 mg/dL (74-106); Potassium 4.2 mmol/L (3.5-5.1); Total Protein 6.9 g/dL (6.4-8.2)
[2023-08-22 22:45] LABS: Sodium 118 mmol/L (136-145)
--- NOTE | 2023-08-22 22:50 | PC.NURSE ---
2224: Dr. Leyla Metcalf called and notified that No medication has gone through yet for nurse to give for Urinary Output. Urine output has increased to 400cc in the past 25 minutes. Doctor States that she is going to call pharmacy again at this time. 2232: Dr. Leyla Metcalf called to RN to make sure medication went through. Order to give Desmopressin 2mcg IV x1 dose now. Medication is pushed through. Also noted there is an order for D5 in water to run at 75ml/HR but Doctor states to hold off on Fluids at this time. She placed order early because of how long it took the desmopressin to go through. 2249: Rn called Dr. Metcalf at this time to notify her of Critical Sodium level of 118. Decreased from 120 at the time 1999. Desmopressin was given. Urine output for this past hour is at 600cc. Doctor states to hold D5 in water still at this time. No new orders. Recheck Chemistry at 0000 and call physician back with results and new orders.
[2023-08-22] MEDS: SODIUM CHLORIDE 3 % 150 ML 30 ML IV (23:29)
[2023-08-23] VITALS (19 sets, daily range): BP systolic 119–172; BP diastolic 51–84; PULSE 51–77; RESP 12–20; TEMP 36.6–37; O2SAT 96–100
[2023-08-23 00:34] LABS: Alanine Aminotransferase 20 U/L (16-63); Albumin Globulin Ratio 1.1; Albumin Level 3.5 g/dL (3.4-5.0); Alkaline Phosphatase 76 U/L (46-116); Anion Gap 7.3; Aspartate Amino Transferase 23 U/L (15-37); Bilirubin Total 1.3 mg/dL (0.2-1.0); Carbon Dioxide 24.8 mmol/L (21.0-32.0); Chloride 91 mmol/L (98-107); Estimated GFR (African America >60 (>=60); Estimated GFR (Non-African Ame >60 (>=60); Globulin 3.1 g/dL; Glucose 99 mg/dL (74-106); Potassium 4.1 mmol/L (3.5-5.1); Total Protein 6.6 g/dL (6.4-8.2)
[2023-08-23 00:46] LABS: Sodium 119 mmol/L (136-145)
[2023-08-23 02:25] LABS: Alanine Aminotransferase 20 U/L (16-63); Albumin Globulin Ratio 1.2; Albumin Level 3.6 g/dL (3.4-5.0); Alkaline Phosphatase 79 U/L (46-116); Aspartate Amino Transferase 23 U/L (15-37); BUN Creatinine Ratio 10.3; Bilirubin Total 1.4 mg/dL (0.2-1.0); Calcium 8.2 mg/dL (8.5-10.1); Carbon Dioxide 26.2 mmol/L (21.0-32.0); Chloride 91 mmol/L (98-107); Estimated GFR (African America >60 (>=60); Estimated GFR (Non-African Ame >60 (>=60); Globulin 3.1 g/dL; Glucose 99 mg/dL (74-106); Potassium 4.2 mmol/L (3.5-5.1); Total Protein 6.7 g/dL (6.4-8.2)
[2023-08-23 02:27] LABS: Sodium 122 mmol/L (136-145)
[2023-08-23 05:20] LABS: Basophils Percent Auto 0.2 % (0.2-2.0); Eosinophils Absolute Auto 0.1 10^3/uL (0.0-0.7); Hematocrit 36.4 % (42.0-54.0); Hemoglobin 12.8 g/dL (14.0-18.0); Immature Granulocytes Abs Auto 0.02 10^3/uL (0.00-0.03); Immature Granulocytes Pct Auto 0.3 % (0.0-0.5); Lymphocytes Absolute Auto 0.8 10^3/uL (1.2-3.8); Lymphocytes Percent Auto 14.3 % (20.5-60.0); Mean Corpuscular HGB Conc 35.2 g/dL (29.9-35.2); Mean Corpuscular Hemoglobin 31.2 pg (25.9-34.0); Mean Corpuscular Volume 88.8 fL (80.0-94.0); Mean Platelet Volume 11.3 fL (9.5-13.5); Monocytes Absolute Auto 0.7 10^3/uL (0.3-0.8); Monocytes Percent Auto 12.7 % (1.7-12.0); Neutrophils Absolute Auto 4.1 10^3/uL (1.4-6.5); Neutrophils Percent Auto 71.5 % (43.0-75.0); Platelet Count 153 10^3/uL (150-450); Red Cell Distribution Width 11.7 % (11.0-15.0); White Blood Count 5.8 10^3/uL (4.0-11.0)
[2023-08-23 05:47] LABS: Alanine Aminotransferase 20 U/L (16-63); Albumin Globulin Ratio 1.1; Albumin Level 3.5 g/dL (3.4-5.0); Alkaline Phosphatase 79 U/L (46-116); Anion Gap 9.9; Aspartate Amino Transferase 23 U/L (15-37); Bilirubin Total 1.4 mg/dL (0.2-1.0); Calcium 8.3 mg/dL (8.5-10.1); Carbon Dioxide 24.4 mmol/L (21.0-32.0); Chloride 92 mmol/L (98-107); Estimated GFR (African America >60 (>=60); Estimated GFR (Non-African Ame >60 (>=60); Globulin 3.1 g/dL; Glucose 91 mg/dL (74-106); INR 1.84; Magnesium 2.1 mg/dL (1.8-2.4); Potassium 4.3 mmol/L (3.5-5.1); Prothrombin Time 18.8 sec (9.0-11.6); Total Protein 6.6 g/dL (6.4-8.2)
[2023-08-23 05:57] LABS: Sodium 122 mmol/L (136-145)
[2023-08-23 07:53] LABS: Glucometer 109 mg/dL (74-106)
[2023-08-23] MEDS: TAMSULOSIN HCL 0.4 MG CAPSULE PO (08:07)
[2023-08-23] MEDS: ATORVASTATIN CALCIUM 10 MG TABLET PO (08:07)
[2023-08-23] MEDS: OMEPRAZOLE 40 MG CAPSULE.DR PO (08:07)
[2023-08-23] MEDS: MELOXICAM 7.5 MG TABLET 15 MG PO (08:07)
[2023-08-23] MEDS: ATENOLOL 25 MG TABLET PO (08:07)
[2023-08-23] MEDS: GLIMEPIRIDE 2 MG TABLET PO (08:08)
[2023-08-23 08:41] LABS: Anion Gap 12.2; BUN Creatinine Ratio 13.2; Calcium 8.8 mg/dL (8.5-10.1); Carbon Dioxide 25.3 mmol/L (21.0-32.0); Chloride 91 mmol/L (98-107); Estimated GFR (African America >60 (>=60); Estimated GFR (Non-African Ame >60 (>=60); Glucose 92 mg/dL (74-106); Potassium 4.5 mmol/L (3.5-5.1)
[2023-08-23 08:44] LABS: Sodium 124 mmol/L (136-145)
[2023-08-23 10:22] LABS: BUN Creatinine Ratio 13.6; Calcium 8.7 mg/dL (8.5-10.1); Carbon Dioxide 24.1 mmol/L (21.0-32.0); Chloride 91 mmol/L (98-107); Estimated GFR (African America >60 (>=60); Estimated GFR (Non-African Ame >60 (>=60); Glucose 94 mg/dL (74-106); Potassium 4.1 mmol/L (3.5-5.1)
[2023-08-23 10:26] LABS: Sodium 124 mmol/L (136-145)
[2023-08-23 11:06] LABS: Glucometer 84 mg/dL (74-106)
--- NOTE | 2023-08-23 11:07 | PM.PN ---
Progress Note: Subjective Subjective Interval history: Patient stable overnight. Remains alert and confused. Denies any pain or discomfort. Tele-nephrology consulted and gave 3% NS infusion. Monitoring sodium and slowly improving. Normal appetite and no emesis or diarrhea. No chest pain or palpitations. Exam Constitutional Vital Signs, click to edit/add: Last Vital Signs Temp 98.5 F 08/23/23 07:21 Pulse 65 08/23/23 09:00 Resp 18 08/23/23 07:23 BP 134/64 08/23/23 07:23 Pulse Ox 96 08/23/23 07:23 O2 Del Method Room Air 08/23/23 07:23 Documenting provider has reviewed patient's vital signs: yes Common normals: no apparent distress and alert Orientation/consciousness: Yes confused HENMT Common normals: normocephalic Eye Common normals: PERRL and EOMs intact bilaterally Respiratory Common normals: normal respiratory effort and clear to auscultation bilaterally Cardio Common normals: regular rate, regular rhythm, no gallops, no murmurs and no rub GI Common normals: Normal to inspection, nondistended, normoactive bowel sounds present and non-tender Extremity Common normals: no pedal edema Progress Note: Objective Labs Labs: Short CBC 08/23/23 Range/Units 04:11 WBC 5.8 (4.0-11.0) 10^3/uL Hgb 12.8 L (14.0-18.0) g/dL Hct 36.4 L (42.0-54.0) % Plt Count 153 (150-450) 10^3/uL BMP 08/22/23 08/22/23 08/22/23 14:03 20:09 22:07 Sodium 118 L* 120 L* 118 L* Potassium 4.6 4.7 4.2 Chloride 86 L 87 L 88 L Carbon Dioxide 23.0 24.4 24.1 BUN 11.0 11.0 9.0 Creatinine 0.78 0.88 0.87 Glucose 119 H 121 H 103 Calcium 8.4 L 8.7 8.2 L 08/23/23 08/23/23 08/23/23 00:12 02:00 04:11 Sodium 119 L* 122 L* 122 L* Potassium 4.1 4.2 4.3 Chloride 91 L 91 L 92 L Carbon Dioxide 24.8 26.2 24.4 BUN 9.0 9.0 10.0 Creatinine 0.82 0.87 0.83 Glucose 99 99 91 Calcium 8.0 L 8.2 L 8.3 L 08/23/23 08/23/23 08:28 10:04 Sodium 124 L* 124 L* Potassium 4.5 4.1 Chloride 91 L 91 L Carbon Dioxide 25.3 24.1 BUN 10.0 11.0 Creatinine 0.76 0.81 Glucose 92 94 Calcium 8.8 8.7 Liver Function 08/22/23 08/22/23 08/23/23 Range/Units 20:09 22:07 00:12 Total Bilirubin 1.3 H 1.3 H 1.3 H (0.2-1.0) mg/dL AST 26 24 23 (15-37) U/L ALT 21 20 20 (16-63) U/L Alkaline Phosphatase 87 81 76 (46-116) U/L Albumin 3.7 3.7 3.5 (3.4-5.0) g/dL 08/23/23 08/23/23 Range/Units 02:00 04:11 Total Bilirubin 1.4 H 1.4 H (0.2-1.0) mg/dL AST 23 23 (15-37) U/L ALT 20 20 (16-63) U/L Alkaline Phosphatase 79 79 (46-116) U/L Albumin 3.6 3.5 (3.4-5.0) g/dL Progress Note: A&P Assessment and Plan (1) Acute hyponatremia: (2) Acute metabolic encephalopathy: (3) Hypomagnesemia: (4) Type 2 diabetes mellitus with hyperglycemia: (5) Paroxysmal atrial fibrillation: (6) Generalized weakness: Plan Sodium slowly improving and appreciate nephrology input. Monitoring labs and may give additional 3% saline later today. Continue PT for weakness. Monitor BS and BP.
[2023-08-23 12:23] LABS: BUN Creatinine Ratio 15.3; Calcium 8.5 mg/dL (8.5-10.1); Carbon Dioxide 25.1 mmol/L (21.0-32.0); Chloride 91 mmol/L (98-107); Estimated GFR (African America >60 (>=60); Estimated GFR (Non-African Ame >60 (>=60); Glucose 68 mg/dL (74-106); Potassium 4.1 mmol/L (3.5-5.1)
--- NOTE | 2023-08-23 12:25 | CM.NOTE ---
Rounds made with Dr. Vee, continue 3% NA and Q2hr lab draw and monitor NA. Nephrology to follow for further input in pt's care. No discharge today.
[2023-08-23 12:26] LABS: Sodium 124 mmol/L (136-145)
--- NOTE | 2023-08-23 12:44 | PT.DAILY ---
Physical Therapy Daily Note PT Daily Note/Assess Start: 08/23/23 12:33 Freq: Status: Active Protocol: Document 08/23/23 12:33 [id number] (Rec: 08/23/23 12:44 NATHANAEL [id number]) Physical Therapy Daily Note/Assessment Time In/Time Out Time In 11:58 Time Out 12:14 Pain In Pain N/A Pain Out Pain N/A Subjective Subjective Pt sitting in BS chair upon arrival. Agrees to PT. Pt is very SOBO[place]. Therapeutic Exercise Time Therapeutic Exercise Minutes (minutes) 8 Therapeutic Exercise Units 1 Therapeutic Exercise Treatment Therapeutic Exercise Treatment Seated AP, LAQ, marches, add squeezes 10x ea. Standing HR and marches at RW 5x ea. Modified rhomberg with CROM 3x ea. Therapeutic Activity Time Therapeutic Activity Minutes (minutes) 7 Therapeutic Activity Units 0 Therapeutic Activity Treatment Chair Transfer Ability Contact Guard Assist Therapeutic Activity Comments Pt sit>stand from BS chair with CGA. Pt has L lateral LOB with initial step but corrects himself with and [place] . Pt amb 150' with constant vc to slow down and to stay within RW to steady himself. Pt impulsive during session. Pt sits for 30 sec rest break then performs 5x sit>stand CGA . Remains in BS chair upon completion with call light in reach and chair alarm set. Total Physical Therapy Time Total Therapy Minutes 15 Total Physical Therapy Units 1 Summary Daily Note Summary Improved gait endurance but cont to be impulsive leading to unsteady gait.
[2023-08-23] MEDS: SODIUM CHLORIDE 3 % 150 ML 30 ML IV (12:45)
--- NOTE | 2023-08-23 12:48 | PM.NEPPN ---
Progress Note: A&P Assessment and Plan (1) Acute hyponatremia: Assessment and Plan: Improving 3% saline at 30 ml/hr notify if UOP > 200 ml/h (2) Acute metabolic encephalopathy: Assessment and Plan: 2/2 hyponatremia improving (3) Hypomagnesemia: Assessment and Plan: Replete as needed (4) Type 2 diabetes mellitus with hyperglycemia: (5) Paroxysmal atrial fibrillation: Assessment and Plan: on coumadin (6) Generalized weakness: Subjective Subjective Principal diagnosis: Hyponatremia Interval history: Pt more alert. Pt A/O X 3. Sodium 124. given DDAVP overnight. No cp or dyspnea. Exam Constitutional: Vital Signs, click to edit/add: Last Vital Signs Temp 97.9 F 08/23/23 11:00 Pulse 53 L 08/23/23 11:30 Resp 18 08/23/23 07:23 BP 119/51 08/23/23 11:30 Pulse Ox 96 08/23/23 07:23 O2 Del Method Room Air 08/23/23 11:30 Common normals: no apparent distress General appearance: cooperative and comfortable Orientation/consciousness: Yes awake, Yes oriented to person, Yes oriented to place and Yes oriented to time HENMT: Common normals: normocephalic Respiratory: Common normals: normal respiratory effort GI: Common normals: soft to palpation and non-tender : Bladder/kidney exam: catheter in place Extremity: Common normals: normal to inspection and no pedal edema Neuro: Common normals: oriented x3 Urinary Catheter Management Urinary Catheter Management Urethral: Cath placed during this visit: yes. d/c catheter tomorrow once able to urinate in urinal Urethral indwelling: Yes Insertion date: 08/21/23 Insertion time: 16:57
[2023-08-23 14:13] LABS: Anion Gap 14.6; BUN Creatinine Ratio 17.1; Calcium 8.7 mg/dL (8.5-10.1); Carbon Dioxide 24.5 mmol/L (21.0-32.0); Chloride 89 mmol/L (98-107); Estimated GFR (African America >60 (>=60); Estimated GFR (Non-African Ame >60 (>=60); Glucose 131 mg/dL (74-106); Potassium 4.1 mmol/L (3.5-5.1)
[2023-08-23 14:16] LABS: Sodium 124 mmol/L (136-145)
[2023-08-23 16:22] LABS: Anion Gap 7.5; BUN Creatinine Ratio 16.3; Calcium 8.2 mg/dL (8.5-10.1); Carbon Dioxide 26.6 mmol/L (21.0-32.0); Chloride 92 mmol/L (98-107); Estimated GFR (African America >60 (>=60); Estimated GFR (Non-African Ame >60 (>=60); Glucose 92 mg/dL (74-106); Potassium 4.1 mmol/L (3.5-5.1)
[2023-08-23 16:24] LABS: Sodium 122 mmol/L (136-145)
[2023-08-23] MEDS: WARFARIN SODIUM 2.5 MG TABLET PO (16:35)
[2023-08-23] MEDS: SODIUM CHLORIDE 3 % 500 ML 40 ML IV (16:36)
[2023-08-23 16:39] LABS: Glucometer 96 mg/dL (74-106)
[2023-08-23 18:50] LABS: Anion Gap 7.5; BUN Creatinine Ratio 17.2; Carbon Dioxide 25.6 mmol/L (21.0-32.0); Chloride 93 mmol/L (98-107); Estimated GFR (African America >60 (>=60); Estimated GFR (Non-African Ame >60 (>=60); Glucose 133 mg/dL (74-106); Potassium 4.1 mmol/L (3.5-5.1)
[2023-08-23 18:51] LABS: Sodium 122 mmol/L (136-145)
[2023-08-23 20:19] LABS: Glucometer 147 mg/dL (74-106)
[2023-08-23 21:36] LABS: Anion Gap 7.1; BUN Creatinine Ratio 15.6; Calcium 7.7 mg/dL (8.5-10.1); Chloride 96 mmol/L (98-107); Estimated GFR (African America >60 (>=60); Estimated GFR (Non-African Ame >60 (>=60); Glucose 99 mg/dL (74-106); Potassium 4.1 mmol/L (3.5-5.1); Sodium 125 mmol/L (136-145)
--- NOTE | 2023-08-23 21:52 | PC.NURSE ---
Notified Dr. Leyla Metcalf of NA+ 125. Received orders to give 3% saline @ 50 cc/hr. Repeat chem 8 at 02:00 am.
[2023-08-23] MEDS: SODIUM CHLORIDE 3 % 100 ML 50 ML IV (22:00)
[2023-08-24] VITALS (15 sets, daily range): BP systolic 120–167; BP diastolic 59–78; PULSE 39–66; RESP 16–20; TEMP 36.8–37.1; O2SAT 96–97
[2023-08-24] MEDS: LEVOTHYROXINE SODIUM 25 MCG TABLET PO (06:05)
[2023-08-24 07:27] LABS: Glucometer 85 mg/dL (74-106)
[2023-08-24 07:30] LABS: Basophils Percent Auto 0.4 % (0.2-2.0); Eosinophils Absolute Auto 0.1 10^3/uL (0.0-0.7); Eosinophils Percent Auto 2.4 % (0.9-7.0); Hemoglobin 12.8 g/dL (14.0-18.0); Lymphocytes Absolute Auto 0.9 10^3/uL (1.2-3.8); Lymphocytes Percent Auto 20.8 % (20.5-60.0); Mean Corpuscular HGB Conc 35.6 g/dL (29.9-35.2); Mean Corpuscular Hemoglobin 31.5 pg (25.9-34.0); Mean Corpuscular Volume 88.7 fL (80.0-94.0); Mean Platelet Volume 10.4 fL (9.5-13.5); Monocytes Absolute Auto 0.5 10^3/uL (0.3-0.8); Monocytes Percent Auto 11.9 % (1.7-12.0); Neutrophils Absolute Auto 2.9 10^3/uL (1.4-6.5); Neutrophils Percent Auto 64.5 % (43.0-75.0); Platelet Count 170 10^3/uL (150-450); Red Blood Count 4.06 10^6/uL (4.70-6.10); Red Cell Distribution Width 11.9 % (11.0-15.0); White Blood Count 4.5 10^3/uL (4.0-11.0)
[2023-08-24 07:36] LABS: INR 2.21; Prothrombin Time 22.4 sec (9.0-11.6)
[2023-08-24 07:37] LABS: Alanine Aminotransferase 21 U/L (16-63); Albumin Globulin Ratio 1.1; Albumin Level 3.3 g/dL (3.4-5.0); Alkaline Phosphatase 79 U/L (46-116); Anion Gap 12.2; Aspartate Amino Transferase 23 U/L (15-37); BUN Creatinine Ratio 14.3; Bilirubin Total 1.1 mg/dL (0.2-1.0); Calcium 8.2 mg/dL (8.5-10.1); Chloride 94 mmol/L (98-107); Estimated GFR (African America >60 (>=60); Estimated GFR (Non-African Ame >60 (>=60); Globulin 2.9 g/dL; Glucose 81 mg/dL (74-106); Magnesium 1.6 mg/dL (1.8-2.4); Potassium 4.2 mmol/L (3.5-5.1); Sodium 128 mmol/L (136-145); Total Protein 6.2 g/dL (6.4-8.2)
[2023-08-24] MEDS: ATENOLOL 25 MG TABLET PO (08:07)
[2023-08-24] MEDS: GLIMEPIRIDE 2 MG TABLET PO (08:07)
[2023-08-24] MEDS: MELOXICAM 7.5 MG TABLET 15 MG PO (08:07)
[2023-08-24] MEDS: OMEPRAZOLE 40 MG CAPSULE.DR PO (08:08)
[2023-08-24] MEDS: ATORVASTATIN CALCIUM 10 MG TABLET PO (08:08)
[2023-08-24] MEDS: TAMSULOSIN HCL 0.4 MG CAPSULE PO (08:08)
[2023-08-24] MEDS: MAGNESIUM SULFATE IN WATER 2 GM/50 ML PREMIX IV (09:17)
[2023-08-24 10:18] LABS: Sodium 126 mmol/L (136-145)
[2023-08-24 10:19] LABS: BUN Creatinine Ratio 14.1; Calcium 7.8 mg/dL (8.5-10.1); Carbon Dioxide 26.2 mmol/L (21.0-32.0); Chloride 96 mmol/L (98-107); Estimated GFR (African America >60 (>=60); Estimated GFR (Non-African Ame >60 (>=60); Glucose 71 mg/dL (74-106); Potassium 4.2 mmol/L (3.5-5.1)
[2023-08-24 11:08] LABS: Glucometer 73 mg/dL (74-106)
--- NOTE | 2023-08-24 12:04 | PM.PN ---
Progress Note: Subjective Subjective Interval history: Patient continues to improve. Remains alert and awake. Less confusion. Labs show improved sodium. Nephrology managing fluids. Appetite improved and no emesis or diarrhea. Ambulating well. No chest pain or palpitations. No SOB or cough. Exam Constitutional Vital Signs, click to edit/add: Last Vital Signs Temp 98.2 F 08/24/23 11:25 Pulse 39 L 08/24/23 11:25 Resp 20 08/24/23 11:25 BP 120/59 08/24/23 11:25 Pulse Ox 97 08/24/23 11:25 O2 Del Method Room Air 08/24/23 11:25 Documenting provider has reviewed patient's vital signs: yes Common normals: no apparent distress and alert HENMT Common normals: normocephalic Eye Common normals: PERRL and EOMs intact bilaterally Respiratory Common normals: normal respiratory effort and clear to auscultation bilaterally Cardio Common normals: regular rate, regular rhythm, no gallops, no murmurs and no rub GI Common normals: Normal to inspection, nondistended, normoactive bowel sounds present and non-tender Extremity Common normals: no pedal edema Progress Note: Objective Labs Labs: Short CBC 08/24/23 Range/Units 07:15 WBC 4.5 (4.0-11.0) 10^3/uL Hgb 12.8 L (14.0-18.0) g/dL Hct 36.0 L (42.0-54.0) % Plt Count 170 (150-450) 10^3/uL BMP 08/23/23 08/23/23 08/23/23 02:06 11:56 13:59 Sodium Cancelled 124 L* 124 L* Potassium Cancelled 4.1 4.1 Chloride Cancelled 91 L 89 L Carbon Dioxide Cancelled 25.1 24.5 BUN Cancelled 13.0 14.0 Creatinine Cancelled 0.85 0.82 Glucose Cancelled 68 L 131 H Calcium Cancelled 8.5 8.7 08/23/23 08/23/23 08/23/23 16:03 18:33 21:10 Sodium 122 L* 122 L* 125 L Potassium 4.1 4.1 4.1 Chloride 92 L 93 L 96 L Carbon Dioxide 26.6 25.6 26.0 BUN 15.0 15.0 14.0 Creatinine 0.92 0.87 0.90 Glucose 92 133 H 99 Calcium 8.2 L 8.0 L 7.7 L 08/24/23 08/24/23 02:06 07:15 Sodium 126 L 128 L Potassium 4.2 4.2 Chloride 96 L 94 L Carbon Dioxide 26.2 26.0 BUN 12.0 11.0 Creatinine 0.85 0.77 Glucose 71 L 81 Calcium 7.8 L 8.2 L Liver Function 08/24/23 Range/Units 07:15 Total Bilirubin 1.1 H (0.2-1.0) mg/dL AST 23 (15-37) U/L ALT 21 (16-63) U/L Alkaline Phosphatase 79 (46-116) U/L Albumin 3.3 L (3.4-5.0) g/dL Progress Note: A&P Assessment and Plan (1) Acute hyponatremia: (2) Acute metabolic encephalopathy: (3) Hypomagnesemia: (4) Type 2 diabetes mellitus with hyperglycemia: (5) Paroxysmal atrial fibrillation: (6) Generalized weakness: Plan Patient continues to improve and sodium up to 128. Nephrology managing and repeat labs this am. Vitals stable. Strength improved. Likely will be ready for discharge in next few days.
--- NOTE | 2023-08-24 12:27 | CM.NOTE ---
Rounds made with Dr. Vee RN reaching out to nephrology for further plan of care with pt. Pt requesting to be discharged today, possible discharge awaiting further recommendations from nephrology. Pt will need to f/u with senior network architect after discharge.
[2023-08-24 14:27] LABS: Anion Gap 11.2; BUN Creatinine Ratio 15.5; Calcium 8.6 mg/dL (8.5-10.1); Carbon Dioxide 25.1 mmol/L (21.0-32.0); Chloride 95 mmol/L (98-107); Estimated GFR (African America >60 (>=60); Estimated GFR (Non-African Ame >60 (>=60); Glucose 104 mg/dL (74-106); Potassium 4.3 mmol/L (3.5-5.1); Sodium 127 mmol/L (136-145)
[2023-08-24] MEDS: SODIUM CHLORIDE 1,000 MG TABLET 2000 MG PO (15:35)
[2023-08-24 16:26] LABS: Glucometer 113 mg/dL (74-106)
[2023-08-24] MEDS: WARFARIN SODIUM 5 MG TABLET PO (16:46)
--- NOTE | 2023-08-24 21:29 | PM.NEPPN ---
Progress Note: A&P Assessment and Plan (1) Acute hyponatremia: Assessment and Plan: Hyponatremia improved salt tabs d/c mcneil discussed with hospitalist (2) Acute metabolic encephalopathy: Assessment and Plan: resolved from hyponatremia (3) Hypomagnesemia: Assessment and Plan: replete (4) Type 2 diabetes mellitus with hyperglycemia: (5) Paroxysmal atrial fibrillation: Assessment and Plan: on coumadin (6) Generalized weakness: Subjective Subjective Principal diagnosis: Hyponatremia Interval history: Pt A/O X3. He wants to go home. He has no nausea or vomiting. There is no leg swelling. Exam Constitutional: Vital Signs, click to edit/add: Last Vital Signs Temp 98.2 F 08/24/23 15:24 Pulse 52 L 08/24/23 19:00 Resp 20 08/24/23 20:00 BP 124/66 08/24/23 15:24 Pulse Ox 97 08/24/23 15:24 O2 Del Method Room Air 08/24/23 15:24 Common normals: no apparent distress Eye: Common normals: EOMs intact bilaterally GI: Common normals: soft to palpation and non-tender : Bladder/kidney exam: catheter in place Extremity: Common normals: full ROM and no pedal edema Neuro: Common normals: oriented x3 Psych: Common normals: mental status grossly normal Urinary Catheter Management Urinary Catheter Management Urethral: Cath placed during this visit: yes Urethral indwelling: Yes Reason for continuing: measure accurate output Insertion date: 08/21/23 Insertion time: 16:57
[2023-08-24 22:59] LABS: Glucometer 84 mg/dL (74-106)
[2023-08-25] VITALS (8 sets, daily range): BP systolic 148–192; BP diastolic 73; PULSE 62–90; RESP 16–22; TEMP 36.8–37.1; O2SAT 92–97
[2023-08-25] MEDS: SODIUM CHLORIDE 1,000 MG TABLET 2000 MG PO ×2 (00:15→06:10)
[2023-08-25 06:06] LABS: Basophils Absolute Auto 0.1 10^3/uL (0.0-0.1); Basophils Percent Auto 1.1 % (0.2-2.0); Eosinophils Absolute Auto 0.3 10^3/uL (0.0-0.7); Eosinophils Percent Auto 4.5 % (0.9-7.0); Hematocrit 38.1 % (42.0-54.0); Hemoglobin 13.5 g/dL (14.0-18.0); Immature Granulocytes Abs Auto 0.01 10^3/uL (0.00-0.03); Immature Granulocytes Pct Auto 0.2 % (0.0-0.5); Lymphocytes Absolute Auto 1.1 10^3/uL (1.2-3.8); Lymphocytes Percent Auto 20.3 % (20.5-60.0); Mean Corpuscular HGB Conc 35.4 g/dL (29.9-35.2); Mean Corpuscular Hemoglobin 31.5 pg (25.9-34.0); Mean Corpuscular Volume 88.8 fL (80.0-94.0); Mean Platelet Volume 10.6 fL (9.5-13.5); Monocytes Absolute Auto 0.7 10^3/uL (0.3-0.8); Monocytes Percent Auto 12.7 % (1.7-12.0); Neutrophils Absolute Auto 3.4 10^3/uL (1.4-6.5); Neutrophils Percent Auto 61.2 % (43.0-75.0); Platelet Count 182 10^3/uL (150-450); Red Blood Count 4.29 10^6/uL (4.70-6.10); Red Cell Distribution Width 12.1 % (11.0-15.0); White Blood Count 5.5 10^3/uL (4.0-11.0)
[2023-08-25] MEDS: LEVOTHYROXINE SODIUM 25 MCG TABLET PO (06:10)
[2023-08-25 06:17] LABS: INR 2.39; Prothrombin Time 24.1 sec (9.0-11.6)
[2023-08-25 06:29] LABS: Alanine Aminotransferase 23 U/L (16-63); Albumin Globulin Ratio 1.1; Albumin Level 3.5 g/dL (3.4-5.0); Alkaline Phosphatase 86 U/L (46-116); Anion Gap 9.9; Aspartate Amino Transferase 24 U/L (15-37); BUN Creatinine Ratio 10.8; Bilirubin Total 0.9 mg/dL (0.2-1.0); Calcium 8.8 mg/dL (8.5-10.1); Carbon Dioxide 27.4 mmol/L (21.0-32.0); Chloride 99 mmol/L (98-107); Estimated GFR (African America >60 (>=60); Estimated GFR (Non-African Ame >60 (>=60); Globulin 3.2 g/dL; Glucose 86 mg/dL (74-106); Potassium 4.3 mmol/L (3.5-5.1); Sodium 132 mmol/L (136-145); Total Protein 6.7 g/dL (6.4-8.2)
[2023-08-25 07:58] LABS: Glucometer 99 mg/dL (74-106)
[2023-08-25] MEDS: ATORVASTATIN CALCIUM 10 MG TABLET PO (10:11)
[2023-08-25] MEDS: GLIMEPIRIDE 2 MG TABLET PO (10:11)
[2023-08-25] MEDS: TAMSULOSIN HCL 0.4 MG CAPSULE PO (10:11)
[2023-08-25] MEDS: ATENOLOL 25 MG TABLET PO (10:11)
[2023-08-25] MEDS: OMEPRAZOLE 40 MG CAPSULE.DR PO (10:11)
[2023-08-25] MEDS: MELOXICAM 7.5 MG TABLET 15 MG PO (10:12)
--- NOTE | 2023-08-25 10:56 | PM.DS1 ---
DS: Providers Provider Date of admission: 08/21/23 17:24 Primary care physician: Non-Staff Physician, Consults: 08/21/23 18:27 Occupational Therapy Eval and Treat Routine Reason for consultation: Weakness Physical Therapy Eval and Treat Routine Reason for consultation: Weakness 08/22/23 14:58 Consult to Telenephrology Routine Consulting Provider: SadeiologKRYSTA bejarano Reason for consultation: Hyponatremia DS: Diagnosis Discharge Diagnosis (1) Acute hyponatremia: (2) Acute metabolic encephalopathy: (3) Hypomagnesemia: (4) Type 2 diabetes mellitus with hyperglycemia: (5) Paroxysmal atrial fibrillation: (6) Generalized weakness: DS: Summary Hospital Course Hospital Course: Reason for admission: See H&P for details. 83 y/o male to ER with altered mental status. noticed increased confusion and possible slurred speech. Increased weakness and difficulty moving. To ER and CT head negative. Labs showed sodium 121 and magnesium 1.6. Ammonia normal and UA negative. Chest x-ray negative. [place] confusion related to low sodium and admitted. Hospital course: Started IV fluids and resumed home medication. Patient remained confused and poor historian. Labs essentially unchanged overnight. Started PT/OT for weakness. Repeat labs showed sodium continued to decrease in spite of IV fluids. Tele-nephrology consulted. Gave 3% sodium chloride infusions and monitored labs. Stopped IV fluids. Sodium slowly improved with several infusions of 3% NS. Started oral NaCl tablets. Patient more alert and strength improved. Ambulating well. Sodium up to 132. Discharged home in stable condition. Will continue NaCl 1 gram TID. Arranged for outpatient nephrology follow up. Continue home medications as directed. Time Spent with Patient Time attestation: Total time spent providing and/or coordinating discharge services: Exam Constitutional Vital Signs, click to edit/add: Last Vital Signs Temp 98.3 F 08/25/23 09:28 Pulse 82 08/25/23 10:14 Resp 18 08/25/23 09:28 BP 192/73 H 08/25/23 09:28 Pulse Ox 92 L 08/25/23 09:28 O2 Del Method Room Air 08/25/23 09:28 Documenting provider has reviewed patient's vital signs: yes Common normals: no apparent distress, oriented x3 and alert HENMT Common normals: normocephalic Eye Common normals: PERRL and EOMs intact bilaterally Respiratory Common normals: normal respiratory effort and no use of accessory muscles Cardio Common normals: regular rate, regular rhythm, no gallops, no murmurs and no rub GI Common normals: Normal to inspection, nondistended, normoactive bowel sounds present and non-tender Extremity Common normals: no pedal edema DS: Data Data Completed and Pending Labs on day of discharge: Labs from last 24 hours 08/25/23 08/25/23 08/24/23 07:56 05:40 22:58 WBC 5.5 RBC 4.29 L Hgb 13.5 L Hct 38.1 L MCV 88.8 MCH 31.5 MCHC 35.4 H RDW 12.1 Plt Count 182 MPV 10.6 Neut % (Auto) 61.2 Lymph % (Auto) 20.3 L [place] % (Auto) 12.7 H Eos % (Auto) 4.5 Baso % (Auto) 1.1 Neut # (Auto) 3.4 Lymph # (Auto) 1.1 L [place] # (Auto) 0.7 Eos # (Auto) 0.3 Baso # (Auto) 0.1 Abs Immat Gran (auto) 0.01 Imm/Tot Granulo (auto) 0.2 PT 24.1 H INR 2.39 Sodium 132 L Potassium 4.3 Chloride 99 Carbon Dioxide 27.4 Anion Gap 9.9 BUN 10.0 Creatinine 0.93 Est GFR ( Amer) >60 Est GFR (Non-Af Amer) >60 BUN/Creatinine Ratio 10.8 Glucose 86 Calcium 8.8 Magnesium 2.0 Total Bilirubin 0.9 AST 24 ALT 23 Alkaline Phosphatase 86 Total Protein 6.7 Albumin 3.5 Globulin 3.2 Albumin/Globulin Ratio 1.1 POC Glucose 99 84 08/24/23 08/24/23 08/24/23 16:25 13:58 11:06 WBC RBC Hgb Hct MCV MCH MCHC RDW Plt Count MPV Neut % (Auto) Lymph % (Auto) [place] % (Auto) Eos % (Auto) Baso % (Auto) Neut # (Auto) Lymph # (Auto) [place] # (Auto) Eos # (Auto) Baso # (Auto) Abs Immat Gran (auto) Imm/Tot Granulo (auto) PT INR Sodium 127 L Potassium 4.3 Chloride 95 L Carbon Dioxide 25.1 Anion Gap 11.2 BUN 13.0 Creatinine 0.84 Est GFR ( Amer) >60 Est GFR (Non-Af Amer) >60 BUN/Creatinine Ratio 15.5 Glucose 104 Calcium 8.6 Magnesium Total Bilirubin AST ALT Alkaline Phosphatase Total Protein Albumin Globulin Albumin/Globulin Ratio POC Glucose 113 H 73 L Discharge Plan Discharge Disposition: Home, Self-Care Condition: Good Discharge Medications: New sodium chloride 1,000 mg tablet,soluble 1,000 mg PO TID Qty: 90 0RF Continued atenolol 25 mg tablet 25 mg PO DAILY glimepiride 2 mg tablet 2 mg PO DAILY levothyroxine 25 mcg tablet 25 mcg PO QAM meloxicam 15 mg tablet 15 mg PO DAILY omeprazole 40 mg capsule,delayed release(DR/EC) 40 mg PO DAILY pravastatin 40 mg tablet 40 mg PO DAILY sildenafil 100 mg tablet 100 mg PO DAILY PRN (Reason: sexual activity) tamsulosin 0.4 mg capsule 0.4 mg PO DAILY warfarin [Jantoven] 5 mg tablet 5 mg PO MOWE Rx Instructions: takes on tuesday, and tue per [facility] warfarin [Jantoven] 2.5 mg tablet 2.5 mg PO .4 days a week Rx Instructions: Takes on Tuesday, , and tue per coumadin clinic Activity: resume usual activities as tolerated Diet: advance to your usual diet Patient Instructions: Hyponatremia (GEN) Forms: Portal Instructions Follow Up Appointments: nursing schedule follow up appointment with nephrology
--- NOTE | 2023-08-25 11:26 | CM.NOTE ---
Rounds made with Dr. Vee. Plan for discharge today. Will need to follow up with PCP. Mr. Aguilera states has appointment on September 14 or ( will verify) and Dr. Vee states that will be an acceptable appointment for follow up. Dr. Vee also explained the need to get established with [facility]. 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 Mr. Aguilera verbalized readiness to go home.
--- NOTE | 2023-08-26 10:30 | CM.DCFOLLOWU ---
Person spoke with: patient's How are you feeling? well How is your pain? no pain Did you understand your discharge instructions? yes Do you have any questions about your discharge instructions? no Were you given any prescriptions at discharge? yes Were you able to get your prescriptions filled? yes Do you understand how to take your medications as ordered? yes Do you have any questions about your follow up appointment and do you plan to keep your follow up appointment? see notes below Is there anything else that you would like to discuss? see notes below Questions/Comments/Concerns/Other: Discharge follow up call completed by Olga Beard on 08/26/23. Spoke with pt's and they are trying to schedule a follow up with nephrology, but they will not allow them as they need referral sent. attempted to call PCP, but no answer, left message. Notified Amparo, director of med/surge to see if we can assist or if pt will need to wait until follow up with PCP on 09/15/23.
== END 2023-08-25 11:15 | disposition home or self-care (01) | DRG 640 ==
LOC: ER 16:58 → MS 17:29 → ICU 08-22 16:28
PROVIDERS: Student in an Organized Health Care Education/Training Program; Admitting Provider Family Medicine; Emergency Provider Emergency Medicine; Visit Provider Family Medicine
DX: E87.1 Hypo-osmolality and hyponatremia (principal); G93.41 Metabolic encephalopathy; E83.42 Hypomagnesemia; E11.65 Type 2 diabetes mellitus with hyperglycemia; I10 Essential (primary) hypertension; I48.91 Unspecified atrial fibrillation; E78.00 Pure hypercholesterolemia, unspecified; R53.1 Weakness; R41.82 Altered mental status, unspecified; Z79.01 Long term (current) use of anticoagulants; Z79.890 Hormone replacement therapy; Z79.84 Long term (current) use of oral hypoglycemic drugs; Z79.899 Other long term (current) drug therapy
CPT/HCPCS: 36415; 51798; 70450; 70496; 70498; 71045; 80048; 80053; 80307; 80320; 81003; 82140; 82948; 83735; 84443; 84484; 85025; 85610; 93005; 96365; 96366; 96375; 96376; 97110; 97162; 97165; 97535; 99285; Q3014; Q9967

== ENCOUNTER 2023-09-14 00:21 | Outpatient (RCR) | payer OTHER, SELFPAY | END 2023-10-13 16:23 | disposition home or self-care (01) | LOC: MM 00:21 | PROVIDERS: Visit Provider Internal Medicine | DX: Z51.81 Encounter for therapeutic drug level monitoring (principal); Z79.01 Long term (current) use of anticoagulants; I48.20 Chronic atrial fibrillation, unspecified | CPT/HCPCS: 85610; G0463 ==

== ENCOUNTER 2023-09-14 09:28 | Outpatient (OUT) | payer OTHER, SELFPAY ==
[2023-09-14 10:12] LABS: Hematocrit 39.1 % (42.0-54.0); Mean Corpuscular HGB Conc 33.2 g/dL (29.9-35.2); Mean Corpuscular Hemoglobin 30.7 pg (25.9-34.0); Mean Corpuscular Volume 92.2 fL (80.0-94.0); Platelet Count 159 10^3/uL (150-450); Red Blood Count 4.24 10^6/uL (4.70-6.10); Red Cell Distribution Width 12.8 % (11.0-15.0); White Blood Count 4.6 10^3/uL (4.0-11.0)
[2023-09-14 11:01] LABS: Estimated Average Glucose 114 mg/dL; Glycohemoglobin A1C 5.6 % (4.5-6.2)
[2023-09-14 11:14] LABS: Alanine Aminotransferase 28 U/L (16-63); Albumin Globulin Ratio 1.3; Albumin Level 3.9 g/dL (3.4-5.0); Alkaline Phosphatase 85 U/L (46-116); Anion Gap 11.7; Aspartate Amino Transferase 27 U/L (15-37); BUN Creatinine Ratio 13.9; Bilirubin Total 0.9 mg/dL (0.2-1.0); Calcium 8.8 mg/dL (8.5-10.1); Carbon Dioxide 28.8 mmol/L (21.0-32.0); Chloride 100 mmol/L (98-107); Chol HDL Ratio 2.7; Cholesterol 172 mg/dL (<=200); Estimated GFR (African America >60 (>=60); Estimated GFR (Non-African Ame >60 (>=60); Globulin 3.1 g/dL; Glucose 93 mg/dL (74-106); HDL Cholesterol 63 mg/dL (40-60); Potassium 4.5 mmol/L (3.5-5.1); Sodium 136 mmol/L (136-145); Triglycerides 59 mg/dL (<=150); VLDL CHOLESTEROL 11.8 mg/dL
== END 2023-09-14 09:29 | disposition home or self-care (01) ==
LOC: LAB 09:28
DX: E03.9 Hypothyroidism, unspecified (principal); I48.20 Chronic atrial fibrillation, unspecified; E11.9 Type 2 diabetes mellitus without complications; Z79.01 Long term (current) use of anticoagulants; Z51.81 Encounter for therapeutic drug level monitoring
CPT/HCPCS: 36415; 80053; 80061; 83036; 84443; 85027; 85610

== ENCOUNTER 2023-10-14 09:00 | Outpatient (RCR) | payer OTHER, SELFPAY | END 2023-11-11 14:41 | disposition home or self-care (01) | LOC: MM 09:00 | PROVIDERS: Visit Provider Internal Medicine | DX: Z51.81 Encounter for therapeutic drug level monitoring (principal); Z79.01 Long term (current) use of anticoagulants; I48.20 Chronic atrial fibrillation, unspecified | CPT/HCPCS: 85610; G0463 ==

== ENCOUNTER 2023-11-13 10:15 | Inpatient (IN) | payer OTHER, SELFPAY ==
[2023-11-13] VITALS (22 sets, daily range): BP systolic 93–172; BP diastolic 45–99; PULSE 75–110; RESP 16–24; TEMP 36.7–38.3; O2SAT 91–100; BMI 24.9; BMI 25.7
--- NOTE | 2023-11-13 10:22 | CT_ITS ---
[facility] [id number] Patient Name: INDIANA ZABALA MRN: [id number] date: 1940 Sex: M Assigned Patient Location: ER Current Patient Location: ER Accession/Order Number: [id number] Exam Date: 11/13/2023 10:28 Report Date: 11/13/2023 12:14 At the request of: JESSI YAO Procedure: CT stroke head/brain wo con CT head without contrast, 11/13/2023. HISTORY: Unresponsive. COMPARISON: CT head, 08/21/2023. TECHNIQUE: Noncontrast axial CT images obtained through the head. Reconstructions obtained in the sagittal and coronal planes. Dose reduction techniques were achieved by using automated exposure control and/or adjustment of mA and/or kV according to patient size and/or use of iterative reconstruction technique. FINDINGS: Paranasal sinuses are clear. Mastoid air cells and middle ear cavities clear. Skull base is intact. No skull lesion. Prior cataract surgery. Extracranial soft tissue structures are unremarkable. Mild brain atrophy. No hydrocephalus. No subdural fluid collection. No mass effect. No shift of midline. No acute hemorrhage. No masses. 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 Best matter and white matter differentiation is normal. CT/CT stroke head/brain wo con IMPRESSION: 1. Stable CT of the head. No acute findings. No intracranial hemorrhage. 2. Mild brain atrophy. 3. 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 Electronically authenticated by: TACHO COOPER Date: 11/13/2023 12:14
--- NOTE | 2023-11-13 10:22 | XR_ITS ---
[facility] [id number] Patient Name: INDIANA ZABALA MRN: [id number] date: 1940 Sex: M Assigned Patient Location: ER Current Patient Location: ER Accession/Order Number: [id number] Exam Date: 11/13/2023 10:34 Report Date: 11/13/2023 12:05 At the request of: JESSI YAO Procedure: XR chest 1V CLINICAL HISTORY: sob. EXAMINATION: Portable AP upright chest: 11/13/2023 at 1035 hours. COMPARISON: Chest 08/21/2023. FINDINGS: Patient is slightly rotated, lordotic. There is previous fusion at C6/C7. There are monitoring artifacts from overlying the patient's chest. The heart size remains enlarged. The aorta is mildly atherosclerotic. There are no discrete infiltrates, pleural effusions, pulmonary edema or pneumothorax. XR/XR chest 1V IMPRESSION: 1. Stable cardiomegaly. 2. No acute cardiopulmonary disease. Electronically authenticated by: HERLINDA FULLER Date: 11/13/2023 12:05
--- NOTE | 2023-11-13 10:23 | ECG_ITS ---
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
[2023-11-13 10:26] LABS: Glucometer 144 mg/dL (74-106)
--- NOTE | 2023-11-13 10:33 | PC.NURSE ---
placed by EMS for pulse ox of 60's per EMS
--- OUTSIDE RECORDS SUMMARY | 2023-11-13 10:40 | XMS_ITS | CCD ---
Author Name Unknown Address [address] [place] [address] Organization [facility] Care Team Providers Care Manager Property Name Role Phone Jada Rene Unavailable Unavailable Primary Care Provider Unavailrogerio e Jada Rene Attending Unavailable Jada Rene Admitting Unavailable Jada Rene Primary Care Unavailable Jada Rene Attending Unavailable Jada Rene Admitting Unavailable Jada Rene Primary Care Unavailable Medications Current Medications Medication Drug Class(es) Dates Sig (Normalized) Sig (Original) cholecalciferol 0.125 mg oral capsule (11 sources) Vitamin D take 1 capsule by mouth every twenty-four hours Vitamin D3 125 MCG (5000 UT) 1 capsule Orally Once a day Active gabapentin 300 mg oral capsule (11 sources) Anti-epileptic Agent take 1 capsule by mouth every twenty-four hours Gabapentin 300 MG 1 capsule Orally Once a day Active levothyroxine sodium 0.025 mg oral tablet (11 sources) l-Thyroxine take 1 tablet by mouth once daily in the morning Levothyroxine Sodium 25 MCG 1 tablet in the morning on an empty stomach Orally Once a day Active take 1 tablet by alyssa th once daily in the morning Levothyroxine Sodium 25 MCG 1 tablet in the morning on an empty stomach Orally Once a day Active meloxicam 15 mg oral tablet (11 sources) Nonsteroidal Anti-inflammatory Drug take 1 tablet by mouth once daily as needed Meloxicam 15 MG 1 tablet PRN Orally Once a day for 90 days Active omeprazole 40 mg delayed release oral capsule (11 sources) Proton Pump Inhibitor take 1 capsule by mouth once daily Omeprazole 40 MG 1 capsule 30 minutes before morning meal Orally Once a day for 90 days Active triamcinolone acetonide 1 mg/ml topical cream (11 sources) Corticosteroid Start: 023 Triamcinolone Acetonide 0.1 % 1 application Externally BID for 14 days Jun, Active Start: 06-16-2023 Triamcinolone Acetonide 0.1 % 1 application Externally BID for 14 days Jun, Active Turmeric Curcumin 500 MG (11 sources) Turmeric Curcumi n 500 MG as directed Orally Active ubidecarenone 200 mg oral capsule (11 sources) Co Q 10 200 MG a s directed Orally Active warfarin sodium 5 mg oral tablet (11 sources) Vitamin K Antagonist take 1 tablet by mouth every other day Warfarin 5mg 5 mg 1/2 tablet orally every other day Active Completed/Discontinued Medications Medication Drug Class(es) Dates Sig (Normalized) Sig (Original) aspirin 81 mg oral tablet (1 source) Platelet Aggregation Inhibitor, Nonsteroidal Anti-inflammatory Drug Start: 08-10-2005 take 1 tablet by mouth once daily ASPIRIN 81 MG ORAL TAB Take one (1) tablet daily . 0 08/10/2005 Active Comment on above: Take one (1) tablet daily . atenolol 25 mg oral tablet (12 sources) beta-Adrenergic Chema Start: 10-06-2015 atenolol (TENORMIN) 25 mg tablet TAKE 1 TABLET ONE TIME DAILY 90 tablet 3 10/06/2015 Active Comment on above: TAKE 1 TABLET ONE TI ME DAILY Blood-Glucose Meter (CONTOUR METER) monitoring kit (1 source) Start: 08-23-2012 Blood-Glucose Meter (CONTOUR METER) monitoring kit Indications: Type II or unspecified type diabetes mellitus without mention of complication, not stated as uncontrolled Testing twice daily 1 Each 0 08/23/2012 Active Comment on above: Testing twice daily dabigatran etexilate 150 mg oral capsule (1 source) Start: 10-09-2014 take 1 capsule by mouth twice daily dabigatran etexilate (PRADAXA) 150 mg cap Indications: Atrial fibrillation (HCC) Take 1 capsule by mouth twice daily. 180 capsule 3 10/09/2014 Active Comment on above: Take 1 capsule by mo [facility] twice daily. finasteride 5 mg oral tablet (12 sources) 5-alpha Reductase Inhibitor Start: 10-09-2014 take 1 tablet by mouth once daily finasteride (PROSCAR) 5 mg tablet Indications: BPH with urinary obstruction Take 1 tablet by mouth once daily. 90 tablet 3 10/09/2014 Active Comment on above: Take 1 tablet by alyssa once daily. glimepiride 2 mg oral tablet (12 sources) Sulfonylurea Start: 10-14-2014 take 1 tablet by mouth once daily glimepiride (AMARYL) 2 mg tablet Indications: Type II or unspecified type diabetes mellitus without mention of complication, not stated as uncontrolled Take 1 tablet by mouth once daily. 90 tablet 3 10/14/2014 Active Comment on above: Take 1 tablet by alyssa th once daily. pravastatin sodium 40 mg oral tablet (12 sources) HMG-CoA Reductase Inhibitor Start: 10-09-2014 take 1 tablet by mouth once daily at bedtime pravastatin (PRAVACHOL) 40 mg tablet Indications: Other and unspecified hyperlipidemia Take 1 tablet by mouth daily at bedtime. 90 tablet 3 10/09/2014 Active Comment on above: Take 1 tablet by alyssa th daily at bedtime. tamsulosin hydrochloride 0.4 mg oral capsule (12 sources) alpha-Adrenergic Chema Start: 10-14-2014 take 1 capsule by mouth once daily at bedtime tamsulosin (FLOMAX) 0.4 mg cp24 Take 1 capsule by mouth daily at bedtime. 90 capsule 3 10/14/2014 Active Tamsulosin HCl 0 .4 MG as directed Orally Active Comment on above: Take 1 capsule by mo uth daily at bedtime. vitamin b12 1 mg oral tablet (1 source) Vitamin B12 Start: 07-28-2011 take 1 tablet by mouth once daily cyanocobalamin 1,000 mcg ORAL Tab Take 1 tablet by mouth once daily. 0 07/28/2011 Active Comment on above: Take 1 tablet by alyssa th once daily. Problems Problem Classification Problem Date Documented Date Episodic/Chronic Allergic reactions (1 source) Dermatitis, unspecified Episodic Cardiac dysrhythmias (15 sources) Atrial fibrillation; Translations: [Unspecified atrial fibrillation] Onset: 08-22-2014 Chronic Diabetes mellitus without complication (15 sources) Type 2 diabetes mellitus; Translations: [Type 2 diabetes mellitus without complications] Chronic Disorders of lipid metabolism (1 source) Hyperlipidemia; Translations: [Hyperlipidemia, unspecified] 03-02-2006 Chronic Fluid and electrolyte disorders (3 sources) Hypo-osmolality and hyponatremia Episodic Hyperplasia of prostate (13 sources) Benign prostatic hyperplasia; Translations: [Benign prostatic hyperplasia without lower urinary tract symptoms] Onset: 01-11-2013 Chronic Immunizations and screening for infectious disease (1 source) Encounter for immunization Episodic Osteoarthritis (1 source) Degenerative joint disease involving multiple joints; Translations: [Polyosteoarthritis, unspecified] Onset: 09-12-2012 09-12-2012 Chronic Other aftercare (11 sources) Long-term current use of anticoagulant; Translations: [adjunct 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 (current) use of anticoagulants] Episodic Other aftercare (2 sources) adjunct 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 (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) use of anticoagulants Episodic Other ear and sense organ disorders (11 sources) Hearing loss; Translations: [Unspecified hearing loss, unspecified ear] Chronic Other ear and sense organ disorders (1 source) Unspecified hearing loss, unspecified ear Chronic Other nervous system disorders (1 source) Carpal tunnel syndrome; Translations: [Carpal tunnel syndrome, unspecified upper limb] Onset: 08-23-2007 03-06-2008 Chronic Other nervous system disorders (1 source) Neuropathy; Translations: [Polyneuropathy, unspecified] Onset: 03-25-2010 03-25-2010 Chronic Other screening for suspected conditions (not mental disorders or infectious disease) (1 source) Encounter for screening for malignant neoplasm of prostate Episodic Spondylosis; intervertebral disc disorders; other back problems (1 source) Intervertebral disc disorder of cervical region with myelopathy; Translations: [Cervical disc disorder with myelopathy, unspecified cervical region] Onset: 2011 11-09-2021 Chronic Syncope (1 source) Syncope and collapse Episodic Thyroid disorders (13 sources) Hypothyroidism; Translations: [Hypothyroidism, unspecified] Chronic Unclassified (1 source) Encounter for screening for malignant neoplasm of prostate; Translations: [Encounter for screening for malignant neoplasm of prostate] Onset: 11-02-2023 Unclassified (1 source) senior living (current) use of anticoagulants; Translations: [adjunct 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 (current) use of anticoagulants] Onset: 06-16-2023 Results Test Name Value Interpretation Reference Range Facility Basic Metabolic Panelon 10-15 Anion gap [Moles/Vol] 8.1 mmol/L Normal 6.0-15.0 [facility] Comment on above: Order Comment: Yovanio n for Exam Hyponatremia Performed By: #### C BC, BMP #### [facility] [address] Calcium [Mass/Vol] 9.3 mg/dL Normal 8.6-10.3 [facility] Comment on above: Order Comment: Reaso n for Exam Hyponatremia Result Comment: PERF ORMED BY: [place] [address] PATHOLOGIST SENIOR GRANT WRITER DANNY NEAL M.D. Performed By: #### C BC, BMP #### [facility] [address] Chloride [Moles/Vol] 102 mmol/L Normal 98-107 [email or web address] [facility] [employer] Other Comment on above: Order Comment: Reaso n for Exam Hyponatremia Performed By: #### C BC, BMP #### [address] CO2 [Moles/Vol] 32.4 mmol/L High 21.0-31.0 [facility] Comment on above: Order Comment: Reaso n for Exam Hyponatremia Performed By: #### C BC, BMP #### [address] Creatinine [Mass/Vol] 1.07 mg/dL Normal 0.70-1.30 [facility] Comment on above: Order Comment: Reaso n for Exam Hyponatremia Performed By: #### C BC, BMP #### [place] [address] [place] GFR/1.73 sq M.predicted MDRD (S/P/Bld) [Vol rate/Area] mL/min/{1.73_m2} Normal [facility] [employer] Other Comment on above: Order Comment: Reaso n for Exam Hyponatremia Performed By: #### C BC, BMP #### [place] [id number] [place] Glucose [Mass/Vol] 93 mg/dL Normal 70-100 [email or web address] [facility] [employer] Other Comment on above: Order Comment: Reaso n for Exam Hyponatremia Result Comment: [place] om Glucose Reference Range is dependent on time and content of last meal. Glucose of more than 200 mg/dL in a nonstressed, ambulatory subject supports the diagnosis of Diabetes Mellitus. ADA recommended reference range Performed By: #### C BC, BMP #### [address] [place] [address] [place] Potassium [Moles/Vol] 4.5 mmol/L Normal 3.5-5.1 [facility] Comment on above: Order Comment: Reaso n for Exam Hyponatremia Performed By: #### C BC, BMP #### [facility] [address] [place] [id number] [place] Sodium [Moles/Vol] 138 mmol/L Normal 136-145 [email or web address] [facility] [employer] Other Comment on above: Order Comment: Reaso n for Exam Hyponatremia Performed By: #### C BC, BMP #### [facility] [address] Urea nitrogen [Mass/Vol] 13 mg/dL Normal 7-25 [email or web address] [facility] [employer] Other Comment on above: Order Comment: Reaso n for Exam Hyponatremia Performed By: #### C BC, BMP #### [facility] [address] [place] [address] [place] Calcium [Mass/Vol] 9.6098067 mg/dL Normal 8.6-10.3 mg/ dL [email or web address] [facility] [employer] Other CO2 [Moles/Vol] 32.30663238 mmol/L High 21.0-3 1.0 mmol/L [employer] Other Creatinine [Mass/Vol] 1.69745225 mg/dL Normal 0.70-1.30 mg/dL [employer] Other Potassium [Moles/Vol] 4.38980833 mmol/L Normal 3.5-5.1 mmol/L [employer] Other Complete Blood Count Auto Di ffon 11-02-2023 Basophils (Bld) [#/Vol] 0.1 10*3/uL Normal 0.0-0.2 [facility] Comment on above: Order Comment: Reaso n for Exam Atrial fibrillation Result Comment: PERF ORMED BY: [place] [id number] PATHOLOGIST SENIOR [employer] WRITER DANNY NEAL M.D. Performed By: #### C BC, BMP #### [facility] [address] Basophils/100 WBC (Bld) 1.0 % Normal . [facility] Comment on above: Order Comment: Reaso n for Exam Atrial fibrillation Performed By: #### C BC, BMP #### [place] [address] [place] Eosinophils (Bld) [#/Vol] 0.1 10*3/uL Normal 0.0-0.45 [facility] Comment on above: Order Comment: Reaso n for Exam Atrial fibrillation Performed By: #### C BC, BMP #### [address] Eosinophils/100 WBC (Bld) 2.1 % Normal . [facility] Comment on above: Order Comment: Reaso n for Exam Atrial fibrillation Performed By: #### C BC, BMP #### [address] Erythrocyte distribution width (RBC) [Ratio] 14.0 % Normal 12.0-14.8 [facility] Comment on above: Order Comment: Reaso n for Exam Atrial fibrillation Performed By: #### C BC, BMP #### [address] Hematocrit (Bld) [Volume fraction] 38.8 % Normal 38.8-50.0 [facility] Comment on above: Order Comment: Reaso n for Exam Atrial fibrillation Performed By: #### C BC, BMP #### [address] Hemoglobin (Bld) [Mass/Vol] 13.2 g/dL Normal 13.0-17.0 [facility] Comment on above: Order Comment: Reaso n for Exam Atrial fibrillation Performed By: #### C BC, BMP #### [address] Lymphocytes (Bld) [#/Vol] 1.3 10*3/uL Normal 1.00-4.8 [facility] Comment on above: Order Comment: Reaso n for Exam Atrial fibrillation Performed By: #### C BC, BMP #### [address] Lymphocytes/100 WBC (Bld) 21.8 % Normal . [facility] Comment on above: Order Comment: Reaso n for Exam Atrial fibrillation Performed By: #### C BC, BMP #### [address] MCH (RBC) [Entitic mass] 31.5 pg Normal 27.5-35.2 [facility] Comment on above: Order Comment: Reaso n for Exam Atrial fibrillation Performed By: #### C BC, BMP #### [address] MCV (RBC) [Entitic vol] 92.7 fL Normal 83.5-101 [facility] Comment on above: Order Comment: Reaso n for Exam Atrial fibrillation Performed By: #### C BC, BMP #### [address] Mean Corpuscular HGB Conc 34.0 g/dL Normal 32.5-35.6 [facility] Comment on above: Order Comment: Reaso n for Exam Atrial fibrillation Performed By: #### C BC, BMP #### [address] Monocytes (Bld) [#/Vol] 0.5 10*3/uL Normal 0.0-0.8 [facility] Comment on above: Order Comment: Reaso n for Exam Atrial fibrillation Performed By: #### C BC, BMP #### [address] Monocytes/100 WBC (Bld) 8.5 % Normal . [facility] Comment on above: Order Comment: Reaso n for Exam Atrial fibrillation Performed By: #### C BC, BMP #### [address] Neutrophils (Bld) [#/Vol] 4.0 10*3/uL Normal 1.8-7.7 [facility] Comment on above: Order Comment: Reaso n for Exam Atrial fibrillation Performed By: #### C BC, BMP #### [facility] [address] [place] [address] [place] Neutrophils/100 WBC (Bld) 66.6 % Normal . [facility] Comment on above: Order Comment: Reaso n for Exam Atrial fibrillation Performed By: #### C BC, BMP #### [facility] [address] [place] [address] [place] NRBC% 0.1 /100{WBC} Normal 0-0.5 [facility] Comment on above: Order Comment: Reaso n for Exam Atrial fibrillation Performed By: #### C BC, BMP #### [facility] [address] Platelet mean volume (Bld) [Entitic vol] 9.4 fL Normal 6.6-10.1 [facility] Comment on above: Order Comment: Reaso n for Exam Atrial fibrillation Performed By: #### C BC, BMP #### [facility] [address] Platelets (Bld) [#/Vol] 153 10*3/uL Normal 150-450 [email or web address] [facility] [employer] Other Comment on above: Order Comment: Reaso n for Exam Atrial fibrillation Performed By: #### C BC, BMP #### [facility] [address] [place] [address] [place] RBC (Bld) [#/Vol] 4.19 10*6/uL Normal 3.90-5.60 [email or web address] [facility] [employer] Other Comment on above: Order Comment: Reaso n for Exam Atrial fibrillation Performed By: #### C BC, BMP #### [facility] [address] [place] [address] [place] WBC (Bld) [#/Vol] 6.1 10*3/uL Normal 4.1-10.5 [facility] Comment on above: Order Comment: Reaso n for Exam Atrial fibrillation Performed By: #### C BC, BMP #### [facility] [address] [place] [address] [place] Basophils (Bld) [#/Vol] 0.201124871 10*3/uL Normal 0.0-0.2 10*3/uL [employer] Other Basophils/100 WBC (Bld) 1.000 % . % [employer] Other Eosinophils (Bld) [#/Vol] 0.186096251 10*3/uL Normal 0.0-0.45 10*3/uL [employer] Other Eosinophils/100 WBC (Bld) 2.100 % . % [employer] Other Erythrocyte distribution width (RBC) [Ratio] 14.000 % Normal 12.0-14.8 % [employer] Other Hematocrit (Bld) [Volume fraction] 38.800 % Normal 38.8-50.0 % [employer] Other Hemoglobin (Bld) [Mass/Vol] 13.047923 g/dL Normal 13.0-17.0 g/dL [employer] Other Lymphocytes (Bld) [#/Vol] 1.433035438 10*3/uL Normal 1.00-4.8 10*3/uL [employer] Other Lymphocytes/100 WBC (Bld) 21.800 % . % [employer] Other MCH (RBC) [Entitic mass] 31.5000 pg Normal 27.5-35.2 pg [employer] Other MCV (RBC) [Entitic vol] 92.7000 fL Normal 83.5-101 fL [employer] Other Monocytes (Bld) [#/Vol] 0.133098097 10*3/uL Normal 0.0-0.8 10*3/uL [employer] Other Monocytes/100 WBC (Bld) 8.500 % . % [employer] Other Neutrophils (Bld) [#/Vol] 4.842462960 10*3/uL Normal 1.8-7.7 10*3/uL [employer] Other Neutrophils/100 WBC (Bld) 66.600 % . % [employer] Other Platelet mean volume (Bld) [Entitic vol] 9.4000 fL Normal 6.6-10.1 fL [employer] Other WBC (Bld) [#/Vol] 6.747843899 10*3/uL Normal 4.1 -10.5 10*3/uL [employer] Other Complete Blood Count Auto Diff 6.1 10*3/uL Normal 4.1-10.5 10*3/uL [employer] Other Complete Blood Count Auto Diff 34.0 g/dL Normal 32.5-35.6 g/dL [employer] Other Complete Blood Count Auto Diff 0.1 /100{WBC} Normal 0-0.5 /100{WBC} [employer] Other PSA Screen (Yearly Only)on 01-03-2023 PSA Screen (Yearly Only) 1.940 ng/mL Normal 0.000-4.000 [facility] Comment on above: Order Comment: Reaso n for Exam Prostate cancer screening Result Comment: Seri al tumor marker results determined by assays using different manufacturers or methods may not be comparable. [facility] contact center rep and method: [employer] DXI, CHEMILUMINESCENT IMMUNOASSAY. PERFORMED BY: [place] [address] PATHOLOGIST SENIOR GRANT WRITER DANNY NEAL M.D. Performed By: #### P SAS #### [address] Prothrombin Time INRon 06-16 INR Coag (PPP) [Relative time] 2.4 {INR} Normal [employer] Other Comment on above: Result Comment: INR Therapeutic Range A) Pre- and Peroperative OAT started two weeks before surgery. NOT HIP SURGERY: 1.5 - 2.5 HIP SURGERY: 2 - 3 B) Primary and secondary prevention of venous THROMBOSIS: 2 - 3 C) Active venous thrombosis, pulmonary embolism and prevention of recurrent venous thrombosis: 2 - 3 D) Prevention of arterial thromboembolism including patients with mechanical heart valves: 3 - 4.5 PERFORMED BY: [place] [address] PATHOLOGIST SENIOR [employer] WRITER DANNY NEAL M.D. Performed By: #### P T #### [facility] [address] [place] [id number] [facility] PT Coag (PPP) [Time] 27.8 s High 9.0-12.9 [facility] Comment on above: Performed By: #### P T #### [facility] [address] [place] [address] [facility] PT Coag (PPP) [Time] 27.800 s High 9.0-12.9 s [employer] Other Coding Summaryon 05-12-2020 Coding Summary CODING DATE: 05/12/2020 [facility] STATUS: Home PAYOR: Medicare [facility] ADMIT DX: REASON FOR VISIT DX: H93.93 Unspecified disorder of ear, bilateral FINAL DX: PRINCIPAL: H61.23 Impacted cerumen, bilateral SECONDARY: PYMT PROC APC STAT DESCRIPTION DOCTOR NAME DATE NOTE: The code number assigned matches the documented diagnosis and / or procedure in the patient's chart. However, the narrative phrase printed from the coding software may appear abbreviated, or result in slightly different terminology. Coded By: Aidee Horan Date Saved: 05/12/2020 02:18 pm Normal [facility] ED Clinical Summaryon 2019 ED Clinical Summary [facility] ? Urgent Care [address] [place], [place] [id number] Clinical Summary PERSON INFORMATION Name: DARIEL AGUILERA Age: 80 Years Sex: MALE : 1940 MRN: Acct#: Visit Reason: UC - Ear Problem; BILAT EAR PROBLEM Arrival: 05/08/2020 09:32:00 Discharge: 05/08/2020 10:15:00 LOS: 000 00:43 Check In: 05/08/2020 09:32:00 Checkout: 05/08/2020 10:15:00 Address: [place] [address] PCP: Provider, Unlisted PROVIDER INFORMATION Provider Role Assigned Unassigned Larry Billingsley PA-C ED PA 05/08/2020 09:36:31 Андрей RN, Ramona ED Nurse 05/08/2020 09:36:55 VITALS INFORMATION Vital Sign Triage Latest Temperature Tympanic Temperature Temporal Artery Pulse Rate O2 Sat 96 % 96 % Respiratory Rate Blood Pressure /79 mmHg /79 mmHg MEDICAL INFORMATION Medications Given: Allergy Information: No known allergies PHYSICIAN DOCUMENTATION DISCHARGE INFORMATION: Discharge Disposition: Home Discharge Location: Home PATIENT EDUCATION INFORMATION Instructions: Earwax Buildup, Adult Follow-Up: With: Address: When: [facility], [address] [place] [phone] Business (1) Comments: Please follow-up with your Doctor or Dr. Arellano, Medical Doctor surgeon partner, call their offices and make ointment to be seen in 3 days or sooner for continued care, please purchase [id number] Debrox which helps breakdown earwax, take all your medications as previously prescribed, drink plenty of water for hydration, and return back to urgent care center for any worsening symptoms, concerns, or complications. DIAGNOSIS: 1:Impacted cerumen of both ears Patient Understands: Yes - Patient/family/caregi francesca verbalizes understanding of instructions given Comment: Normal [facility] ED Patient Summaryon 020 ED Patient Summary [facility] ? Urgent Care [address] [place] [id number] PATIENT DISCHARGE INSTRUCTIONS Patient Information Name: DARIEL AGUILERA Age: 80 Years Date of : 1940 Reason For Visit: UC - Ear Problem; BILAT EAR PROBLEM Arrival Time: 05/08/2020 09:32:00 Primary Care Physician: Provider, Unlisted Attending Physician: Larry Billingsley PA-C Comment: Patient Education With: Address: When: [facility], [address] [place], [place] [id number] Business (1) Comments: Please follow-up with your Doctor or Dr. Arellano, Medical Doctor surgeon partner, call their offices and make ointment to be seen in 3 days or sooner for continued care, please purchase [id number] Debrox which helps breakdown earwax, take all your medications as previously prescribed, drink plenty of water for hydration, and return back to urgent care center for any worsening symptoms, concerns, or complications. Earwax Buildup, Adult The ears produce a substance called earwax that helps keep bacteria out of the ear and protects the skin in the ear canal. Occasionally, earwax can build up in the ear and cause discomfort or hearing loss. What increases the risk? This condition is more likely to develop in people who: ? Are male. ? Are elderly. ? Naturally produce more earwax. ? Clean their ears often with cotton swabs. ? Use earplugs often. ? Use in-ear headphones often. ? Wear hearing aids. ? Have narrow ear canals. ? Have earwax that is overly thick or sticky. ? Have eczema. ? Are dehydrated. ? Have excess hair in the ear canal. What are the signs or symptoms? Symptoms of this condition include: ? Reduced or muffled hearing. ? A feeling of fullness in the ear or feeling that the ear is plugged. ? Fluid coming from the ear. ? Ear pain. ? Ear itch. ? Ringing in the ear. ? Coughing. ? An obvious piece of earwax that can be seen inside the ear canal. How is this diagnosed? This condition may be diagnosed based on: ? Your symptoms. ? Your medical history. ? An ear exam. During the exam, your health care provider will look into your ear with an instrument called an otoscope. You may have tests, including a hearing test. How is this treated? This condition may be treated by: ? Using ear drops to soften the earwax. ? Having the earwax removed by a health care provider. The health care provider may: ? Flush the ear with water. ? Use an instrument that has a loop on the end (curette). ? Use a suction device. ? Surgery to remove the wax buildup. This may be done in severe cases. Follow these instructions at home: ? Take jlwr-iwx-lsuqvzn and prescription medicines only as told by your health care provider. ? Do not put any objects, including cotton swabs, into your ear. You can clean the opening of your ear canal with a washcloth or facial tissue. ? Follow instructions from your health care provider about cleaning your ears. Do not over-clean your ears. ? Drink enough fluid to keep your urine clear or pale yellow. This will help to thin the earwax. ? Keep all follow-up visits as told by your health care provider. If earwax builds up in your ears often or if you use hearing aids, consider seeing your health care provider for routine, preventive ear cleanings. Ask your health care provider how often you should schedule your cleanings. ? If you have hearing aids, clean them according to instructions from the contact center rep and your health care provider. Contact a health care provider if: ? You have ear pain. ? You develop a fever. ? You have blood, pus, or other fluid coming from your ear. ? You have hearing loss. ? You have ringing in your ears that does not go away. ? Your symptoms do not improve with treatment. ? You feel like the room is spinning (vertigo). Summary ? Earwax can build up in the ear and cause discomfort or hearing loss. ? The most common symptoms of this condition include reduced or muffled hearing and a feeling of fullness in the ear or feeling that the ear is plugged. ? This condition may be diagnosed based on your symptoms, your medical history, and an ear exam. ? This condition may be treated by using ear drops to soften the earwax or by having the earwax removed by a health care provider. ? Do not put any objects, including cotton swabs, into your ear. You can clean the opening of your ear canal with a washcloth or facial tissue. This information is not intended to replace advice given to you by your health care provider. Make sure you discuss any questions you have with your health care provider. Document Released: 12/08/2005 Document Revised: 10/12/2018 Document Reviewed: 01/11/2018 [employer] Interactive Patient Education ? 2019 [employer] Medication Information: The exam and treatment you received today in the [facility] were for an urgent problem and are not intended as complete care. It is important for you to follow up with a doctor, nurse practitioner, or physician?s promotional advertising assistant for ongoing care. If your symptoms become worse or you do not improve as expected and you are unable to reach your usual health care provider, you should return to the Emergency Department, we are available 24 hours a day. For those patients who have received Radiology results, the interpretation of your X-ray as given to you by our Emergency Department physician is only a preliminary report. The Radiologist will review your films and if there is a change in the diagnosis you will be notified by phone. Please make sure you have provided a working phone number so we can reach you if necessary. In the event that you had a lab culture while you were a patient in the Emergency Department, you will be notified by phone if there is a need to change your antibiotic. Please make sure you have provided a working phone number so we can reach you if necessary. [facility] Emergency Department has provided you with a complete list of medications post discharge. Please inform your bakery products checker/provider of your visit and for further instruction on these medications. Any specific questions regarding your chronic medications and dosages should be discussed with your primary care physician(s) and/or pharmacist. Medications to Continue That Have Not Changed Other Medications atenolol (atenolol 25 mg oral tablet) 1 tab(s) Oral every day. dabigatran (Pradaxa 150 mg Capsule) 1 cap(s) Oral. finasteride (finasteride 5 mg oral tablet) 1 tab(s) Oral every day. glimepiride (glimepiride 2 mg oral tablet) 1 tab(s) Oral every day. pravastatin (pravastatin 20 mg oral tablet) 1 tab(s) Oral every day. tamsulosin (tamsulosin 0.4 mg oral capsule) 1 cap(s) Oral every day. Visit Information Visit Diagnosis: Diagnoses This Visit Impacted cerumen of both ears (H61.23) UC - Ear Problem ([id number]) If you received any narcotics, sedation, or any other medication that causes drowsiness for the next 24 hours, unless otherwise directed: ? Do not drive a car. ? Do not operate machinery such as power tools, lawn mowers, drills, sewing machines, or stoves ? Avoid alcoholic beverages and drugs for allergies, nerves, or sleep ? Do not make important personal or business decisions or sign any legal documents Reason for Visit: c/o bilateral ears clogged, denies pain Allergies: Substance Reaction Symptoms Type Comments No known allergies Drug Vital Signs: Vitals and Measurements this Visit (last charted value for your 05/08/2020 visit) Vital Signs This Visit Temperature Temporal: 36.8 DegC Peripheral Pulse Rate: 95 bpm Respiratory Rate: 18 br/min Systolic Blood Pressure: 147 mmHg Diastolic Blood Pressure: 79 mmHg SpO2: 96 % Oxygen Therapy: Room air Measurements This Visit Height: 180.34 cm Weight: 88 kg Body Mass Index: 27.06 kg/m2 Problems List: Problem Onset Comments DIABETES MELLITUS Hypercholesterolemia Hypertension Major Tests and Procedures: The following procedures and tests were performed during your ED visit. Laboratory Radiology Cardiology Viruses or Bacteria What?s got you sick? Antibiotics only treat bacterial infections. Viral illnesses cannot be treated with antibiotics. When an antibiotic is not prescribed, ask your healthcare professional for tips on how to relieve symptoms and feel better. Usual Cause Illness Viruses Bacteria Antibiotic Needed Cold/Runny Nose NO Bronchitis/Chest Cold (in otherwise healthy children and adults) NO Whooping Cough Yes Flu NO Strep Throat Yes Sore Throat (except strep) NO Fluid in the middle ear (otitis media with effusion) NO Urinary Tract Infection Yes Antibiotics Aren?t Always the Answer www.cdc.gov/getsmart GET SMART Know When Antibiotics Work U.S. Department of Health and Human Services Centers for Disease Control and Prevention July 2014 [facility] Patient Handouton 05-08-2020 Patient Handout Patient Education Materials Follows: Earwax Buildup, Adult The ears produce a substance called earwax that helps keep bacteria out of the ear and protects the skin in the ear canal. Occasionally, earwax can build up in the ear and cause discomfort or hearing loss. What increases the risk? This condition is more likely to develop in people who: ? Are male. ? Are elderly. ? Naturally produce more earwax. ? Clean their ears often with cotton swabs. ? Use earplugs often. ? Use in-ear headphones often. ? Wear hearing aids. ? Have narrow ear canals. ? Have earwax that is overly thick or sticky. ? Have eczema. ? Are dehydrated. ? Have excess hair in the ear canal. What are the signs or symptoms? Symptoms of this condition include: ? Reduced or muffled hearing. ? A feeling of fullness in the ear or feeling that the ear is plugged. ? Fluid coming from the ear. ? Ear pain. ? Ear itch. ? Ringing in the ear. ? Coughing. ? An obvious piece of earwax that can be seen inside the ear canal. How is this diagnosed? This condition may be diagnosed based on: ? Your symptoms. ? Your medical history. ? An ear exam. During the exam, your health care provider will look into your ear with an instrument called an otoscope. You may have tests, including a hearing test. How is this treated? This condition may be treated by: ? Using ear drops to soften the earwax. ? Having the earwax removed by a health care provider. The health care provider may: ? Flush the ear with water. ? Use an instrument that has a loop on the end (curette). ? Use a suction device. ? Surgery to remove the wax buildup. This may be done in severe cases. Follow these instructions at home: ? Take fxno-zxf-bvxfecp and prescription medicines only as told by your health care provider. ? Do not put any objects, including cotton swabs, into your ear. You can clean the opening of your ear canal with a washcloth or facial tissue. ? Follow instructions from your health care provider about cleaning your ears. Do not over-clean your ears. ? Drink enough fluid to keep your urine clear or pale yellow. This will help to thin the earwax. ? Keep all follow-up visits as told by your health care provider. If earwax builds up in your ears often or if you use hearing aids, consider seeing your health care provider for routine, preventive ear cleanings. Ask your health care provider how often you should schedule your cleanings. ? If you have hearing aids, clean them according to instructions from the contact center rep and your health care provider. Contact a health care provider if: ? You have ear pain. ? You develop a fever. ? You have blood, pus, or other fluid coming from your ear. ? You have hearing loss. ? You have ringing in your ears that does not go away. ? Your symptoms do not improve with treatment. ? You feel like the room is spinning (vertigo). Summary ? Earwax can build up in the ear and cause discomfort or hearing loss. ? The most common symptoms of this condition include reduced or muffled hearing and a feeling of fullness in the ear or feeling that the ear is plugged. ? This condition may be diagnosed based on your symptoms, your medical history, and an ear exam. ? This condition may be treated by using ear drops to soften the earwax or by having the earwax removed by a health care provider. ? Do not put any objects, including cotton swabs, into your ear. You can clean the opening of your ear canal with a washcloth or facial tissue. This information is not intended to replace advice given to you by your health care provider. Make sure you discuss any questions you have with your health care provider. Document Released: 12/08/2005 Document Revised: 10/12/2018 Document Reviewed: 01/11/2018 [employer] Interactive Patient Education ? 2019 [employer]. Normal [facility] [address] Urgent Care Record [facility] ? Urgent Care [address] [id number] PATIENT DISCHARGE INSTRUCTIONS Patient Information Name: DARIEL AGUILERA Age: 80 Years Date of : 1940 Reason For Visit: UC - Ear Problem; BILAT EAR PROBLEM Arrival Time: 05/08/2020 09:32:00 Primary Care Physician: Provider, Unlisted Attending Physician: Larry Billingsley PA-C Comment: Visit Diagnosis: Diagnoses This Visit Impacted cerumen of both ears (H61.23) UC - Ear Problem ([id number]) If you received any narcotics, sedation, or any other medication that causes drowsiness for the next 24 hours, unless otherwise directed: ? Do not drive a car. ? Do not operate machinery such as power tools, lawn mowers, drills, sewing machines, or stoves ? Avoid alcoholic beverages and drugs for allergies, nerves, or sleep ? Do not make important personal or business decisions or sign any legal documents With: Address: When: Andréslisa Arellano [facility], [address], [place] [id number] Business (1) Comments: Please follow-up with your Doctor or Dr. Arellano, Medical Doctor surgeon partner, call their offices and make ointment to be seen in 3 days or sooner for continued care, please purchase wojc-buf-bfaimni Debrox which helps breakdown earwax, take all your medications as previously prescribed, drink plenty of water for hydration, and return back to urgent care center for any worsening symptoms, concerns, or complications. Medication Information: The exam and treatment you received today in the [facility] were for an urgent problem and are not intended as complete care. It is important for you to follow up with a doctor, nurse practitioner, or physician?s promotional advertising assistant for ongoing care. If your symptoms become worse or you do not improve as expected and you are unable to reach your usual health care provider, you should return to the Emergency Department, we are available 24 hours a day. For those patients who have received Radiology results, the interpretation of your X-ray as given to you by our Urgent Care physician is only a preliminary report. The Radiologist will review your films and if there is a change in the diagnosis you will be notified by phone. Please make sure you have provided a working phone number so we can reach you if necessary. In the event that you had a lab culture while you were a patient in the Urgent Care, you will be notified by phone if there is a need to change your antibiotic. Please make sure you have provided a working phone number so we can reach you if necessary. [facility] has provided you with a complete list of medications post discharge. Please inform your bakery products checker/provider of your visit and for further instruction on these medications. Any specific questions regarding your chronic medications and dosages should be discussed with your primary care physician(s) and/or pharmacist. Medications to Continue That Have Not Changed Other Medications atenolol (atenolol 25 mg oral tablet) 1 tab(s) Oral every day. dabigatran (Pradaxa 150 mg Capsule) 1 cap(s) Oral. finasteride (finasteride 5 mg oral tablet) 1 tab(s) Oral every day. glimepiride (glimepiride 2 mg oral tablet) 1 tab(s) Oral every day. pravastatin (pravastatin 20 mg oral tablet) 1 tab(s) Oral every day. tamsulosin (tamsulosin 0.4 mg oral capsule) 1 cap(s) Oral every day. Visit Information Allergies: Substance Reaction Symptoms Type Comments No known allergies Drug Vital Signs: Vitals and Measurements this Visit (last charted value for your 05/08/2020 visit) Vital Signs This Visit Temperature Temporal: 36.8 DegC Peripheral Pulse Rate: 95 bpm Respiratory Rate: 18 br/min Systolic Blood Pressure: 147 mmHg Diastolic Blood Pressure: 79 mmHg SpO2: 96 % Oxygen Therapy: Room air Measurements This Visit Height: 180.34 cm Weight: 88 kg Body Mass Index: 27.06 kg/m2 Problems List: Problem Onset Comments DIABETES MELLITUS Hypercholesterolemia Hypertension Patient Education Earwax Buildup, Adult The ears produce a substance called earwax that helps keep bacteria out of the ear and protects the skin in the ear canal. Occasionally, earwax can build up in the ear and cause discomfort or hearing loss. What increases the risk? This condition is more likely to develop in people who: ? Are male. ? Are elderly. ? Naturally produce more earwax. ? Clean their ears often with cotton swabs. ? Use earplugs often. ? Use in-ear headphones often. ? Wear hearing aids. ? Have narrow ear canals. ? Have earwax that is overly thick or sticky. ? Have eczema. ? Are dehydrated. ? Have excess hair in the ear canal. What are the signs or symptoms? Symptoms of this condition include: ? Reduced or muffled hearing. ? A feeling of fullness in the ear or feeling that the ear is plugged. ? Fluid coming from the ear. ? Ear pain. ? Ear itch. ? Ringing in the ear. ? Coughing. ? An obvious piece of earwax that can be seen inside the ear canal. How is this diagnosed? This condition may be diagnosed based on: ? Your symptoms. ? Your medical history. ? An ear exam. During the exam, your health care provider will look into your ear with an instrument called an otoscope. You may have tests, including a hearing test. How is this treated? This condition may be treated by: ? Using ear drops to soften the earwax. ? Having the earwax removed by a health care provider. The health care provider may: ? Flush the ear with water. ? Use an instrument that has a loop on the end (curette). ? Use a suction device. ? Surgery to remove the wax buildup. This may be done in severe cases. Follow these instructions at home: ? Take ynjw-cma-qqnvlpi and prescription medicines only as told by your health care provider. ? Do not put any objects, including cotton swabs, into your ear. You can clean the opening of your ear canal with a washcloth or facial tissue. ? Follow instructions from your health care provider about cleaning your ears. Do not over-clean your ears. ? Drink enough fluid to keep your urine clear or pale yellow. This will help to thin the earwax. ? Keep all follow-up visits as told by your health care provider. If earwax builds up in your ears often or if you use hearing aids, consider seeing your health care provider for routine, preventive ear cleanings. Ask your health care provider how often you should schedule your cleanings. ? If you have hearing aids, clean them according to instructions from the contact center rep and your health care provider. Contact a health care provider if: ? You have ear pain. ? You develop a fever. ? You have blood, pus, or other fluid coming from your ear. ? You have hearing loss. ? You have ringing in your ears that does not go away. ? Your symptoms do not improve with treatment. ? You feel like the room is spinning (vertigo). Summary ? Earwax can build up in the ear and cause discomfort or hearing loss. ? The most common symptoms of this condition include reduced or muffled hearing and a feeling of fullness in the ear or feeling that the ear is plugged. ? This condition may be diagnosed based on your symptoms, your medical history, and an ear exam. ? This condition may be treated by using ear drops to soften the earwax or by having the earwax removed by a health care provider. ? Do not put any objects, including cotton swabs, into your ear. You can clean the opening of your ear canal with a washcloth or facial tissue. This information is not intended to replace advice given to you by your health care provider. Make sure you discuss any questions you have with your health care provider. Document Released: 12/08/2005 Document Revised: 10/12/2018 Document Reviewed: 01/11/2018 [employer] Patient Education ? 2019 [employer] Viruses or Bacteria What?s got you sick? Antibiotics only treat bacterial infections. Viral illnesses cannot be treated with antibiotics. When an antibiotic is not prescribed, ask your healthcare professional for tips on how to relieve symptoms and feel better. Usual Cause Illness Viruses Bacteria Antibiotic Needed Cold/Runny Nose NO Bronchitis/Chest Cold (in otherwise healthy children and adults) NO Whooping Cough Yes Flu NO Strep Throat Yes Sore Throat (except strep) NO Fluid in the middle ear (otitis media with effusion) NO Urinary Tract Infection Yes Antibiotics Aren?t Always the Answer www.cdc.gov/getsmart GET SMART Know When Antibiotics Work U.S. Department of Health and Human Services Centers for Disease Control and Prevention July 2014 [facility] Vital Signs Date Time Vital Sign Value Performing Clinician Facility 11-02-2023 13:00-0500 Body height 180.34 cm Jada Rene Other [facility] Other 11-02-2023 13:00-0500 Body mass index (BMI) [Ratio] 24.4 kg/m2 Jada Rene Other [facility] Other 11-02-2023 13:00-0500 Body weight 79.38 kg Jada Rene Other [facility] Other 11-02-2023 13:00-0500 Diastolic blood pressure 82 mm[Hg] Jada Rene Other [facility] Other 11-02-2023 13:00-0500 Respiratory rate 18 /min Jada Rene Other [facility] Other 11-02-2023 13:00-0500 SaO2% (BldA) [Mass fraction] 97 % Jada Rene Other [facility] Other 11-02-2023 13:00-0500 Systolic blood pressure 138 mm[Hg] Jada Rene Other [facility] Other 09-21-2023 10:00-0500 Body height 180.34 cm Jada Rene Other [facility] Other 09-21-2023 10:00-0500 Body mass index (BMI) [Ratio] 25.81 kg/m2 Jada Rene Other [facility] Other 09-21-2023 10:00-0500 Body weight 83.96 kg Jada Rene Other [facility] Other 09-21-2023 10:00-0500 Diastolic blood pressure 70 mm[Hg] Jada Rene Other [facility] Other 09-21-2023 10:00-0500 Respiratory rate 18 /min Jadayomi Rene Other [facility] Other 09-21-2023 10:00-0500 SaO2% (BldA) [Mass fraction] 98 % Jadamary Rene Other [facility] Other 09-21-2023 10:00-0500 Systolic blood pressure 140 mm[Hg] Jada Rene Other [facility] Other 06-16-2023 11:00-0400 Body height 180.34 cm Jada Rene Other [facility] Other 06-16-2023 11:00-0400 Body mass index (BMI) [Ratio] 23.79 kg/m2 Jada Rene Other [facility] Other 06-16-2023 11:00-0400 Body weight 77.38 kg Jada Rene Other [facility] Other 06-16-2023 11:00-0400 Diastolic blood pressure 64 mm[Hg] Jadamary Rene Other [facility] Other 06-16-2023 11:00-0400 Respiratory rate 18 /min Jada Rene Other [facility] Other 06-16-2023 11:00-0400 SaO2% (BldA) [Mass fraction] 98 % Jada Rene Other [facility] Other 06-16-2023 11:00-0400 Systolic blood pressure 118 mm[Hg] Jada Rene Other [facility] Other Encounters Encounter Date Encounter Type Care Provider Facility Start: 11-02-2023 End: 11-02-2023 ambulatory Jada Schumacher [facility] Other Start: 11-02-2023 Office outpatient vi sit 25 minutes Jada Rene [facility] Start: 11-02-2023 Telephone encounter Jadayomi Rene [facility] Start: 10-28-2023 End: 10-28-2023 ambulatory Jadayomi Rene Other [facility] Other Start: 10-28-2023 Telephone encounter Jadayomi Rene [facility] Start: 09-30-2023 End: 09-30-2023 Nurse Triage Venessa Riggins RN NURSE PROCESSING SPEC Comment on above: Refill Request Start: 09-30-2023 Telephone encounter Jada Rene [facility] Start: 09-21-2023 End: 09-21-2023 ambulatory Jadamary Rene Other [facility] Other Start: 09-21-2023 Office outpatient vi sit 25 minutes Jada Rene [facility] Start: 08-29-2023 End: 08-29-2023 ambulatory Jadayomi Rene Other [facility] Other Start: 08-29-2023 Telephone encounter Jada Rene [facility] Start: 08-26-2023 End: 08-26-2023 ambulatory Jadayomi Rene Other [facility] Other Start: 08-26-2023 Telephone encounter Jada Rene [facility] Start: 08-08-2023 End: 08-08-2023 ambulatory Jadamary Rene Other [facility] Other Start: 08-08-2023 Telephone encounter Jada Rene [facility] Start: 07-27-2023 End: 07-27-2023 ambulatory Jada Rene Other [facility] Other Start: 07-27-2023 Telephone encounter Jada Rene [facility] Start: 06-16-2023 End: 06-16-2023 ambulatory Jada Rene [facility] Other Start: 06-16-2023 Office outpatient ne w 45 minutes Jada [facility] Start: 06-16-2023 Telephone encounter Jada Rene [facility] Plan of Treatment Date Care Activity Detail Author Start: 07-15-2023 Influenza vaccination Influenza Vacc ine (#1) [facility] Start: 11-14-2022 Advance Directive Discussion Advance Directive Discussion [facility] Start: 11-14-2022 Depression Assessment Depression Ass essment [facility] Start: 03-31-2016 Pneumococcal Vaccine : 65+ (2 - PPSV23 or PCV20) Pneumococcal Vaccine: 65+ (2 - PPSV23 or PCV20) [facility] Start: 03-24-2016 Hepatitis B surface antibody level LDL Cholesterol [facility] Start: 09-24-2015 Hemoglobin A1c/Hemoglobin.total in Blood HbA1C [facility] Start: 08-01-2015 3 comp foot exam completed Diabetic Foot Exam [facility] Start: 07-25-2015 Hepatitis B screening Urine Al bumin:Creatinine Ratio [facility] Start: 02-01-2015 Urine microalbumin profile DTaP,Tdap,Td Vaccine (1 - Tdap) [facility] Start: 10-24-2013 Shingrix Vaccine (2 of 3) Shingrix V accine (2 of 3) [facility] Start: 09-14-2012 Hepatitis C antibody , confirmatory test Dilated Retinal Exam [facility] Start: 2002 RSV Vaccine (1 - 1-d ose 60+ series) RSV Vaccine (1 - 1-dose 60+ series) [facility] Start: 1940 Covid-19 Vaccine (#1) Covid-19 Vacci ne (#1) [facility] Immunizations Immunization Date Immunization Notes Care Provider Sandrita escobar 09-21-2023 Prevnar 20 Jada [facility]gard Other [facility] Other 08-14-2022 influenza, seasonal, injectable Jadamary Rene Other [facility] Other 03-31-2015 pneumococcal conjuga te vaccine, 13 valent Jada Rene Other [facility] 08-02-2014 influenza, high dose seasonal, preservative-free Venessa Riggins RN [facility] 08-02-2014 influenza virus vaccine, unspecified formulation Venessa Riggins RN [facility] 08-29-2013 zoster vaccine, live Venessa Riggins RN [facility] 08-09-2013 influenza virus vaccine, unspecified formulation Venessa Riggins RN [facility] 07-31-2012 influenza virus vaccine, unspecified formulation Venessa Riggins RN [facility] Work Phone: 03-07-2012 tetanus and diphther ia toxoids, adsorbed, preservative free, for adult use (2 Lf of tetanus toxoid and 2 Lf of diphtheria toxoid) Venessa Riggins RN [facility] Work Phone: 08-07-2011 influenza virus vaccine, unspecified formulation Venessa Riggins RN [facility] Work Phone: Payers Date Payer Category Payer Medicare [id number] 2023 Self-pay 2023 Medicare [employer] BY [facility] [id number] 2023-Present [phone] [address] [place] [address] O [id number] Medicare [id number] Unknown [id number] Unknown [id number] Social History Date Type Detail Facility Sex Assigned At [employer] Other Tobacco smoking stat [facility] Never smoked tobacco [facility] Start: 06-28-2022 Alcohol intake Current drinke r of alcohol (finding) [facility] Start: 06-28-2022 Alcohol intake [facility] Start: 1940 Sex Assigned At Not on file [facility] Medical Equipment Procedure Code Equipment Code Equipment Origin al Text Equipment Identifier Dates Test blood sugar(s) 2 times daily. Dx: non. Insulin: No dx 250.00 Start: 08-24-2013 Comment on above: Test blood sugar(s) 2 times daily. Dx: non. Insulin: No dx 250.00 Clinical Notes 03-10-2010 to 11-02-2023 Note Date & Type Note Facility 11-02-2023 Evaluation note Encounter Date Diagnosis Assessment Notes Oct, Hyponatremia (ICD-10 - E87.1) Oct, Prostate cancer screening (ICD-10 - Z12.5) Oct, Atrial fibrillation (ICD-10 - I48.91) Oct, Syncopal episodes (ICD-10 - R55) We discussed differential for syncopal episodes with preceding dizziness including eletrolyte disturbance, anemia, dehydration, vasovagal syncope, cardiac or neurologic etiology. He is advised if having any further episodes of syncope to go immediately to ED for evaluation, or if having any head trauma or hitting head in setting of being anticoagulated should be evaluated for this immediately. No evidence of neurologic deficit today. He appears to be in sinus rhythm. We will check electrolytes and CBC. If having any further dizziness symptoms would recommend f/u with legal analyst as well. [employer] Other 11-17-2023 Evaluation note* Encounter Date Diagnosis Assessment Notes Treatment Notes Treatment Clinical Notes Sep, Type 2 diabetes mellitus (ICD-10 - E11.9) [employer] Other 11-17-2023 Miscellaneous Notes* Telephone Encounter - Venessa Riggins RN - 09/30/2023 12:29 PM EST Called patient back and reviewed plan from his call with Nurse Foam Rubber Fabricator at 11:36 AM. See my note Patient already called his PCP as advise and waiting call back for scheduling. He was hospital discharged on 08/26 for cognitive problems and low sodium. He finished his pills for low sodium today. NOC closing was given Conferenced him to appt center for an appt with nephrology as soon as possible which was reason forhis initial call. Asked AC agent to wait list him if appt is not soon. Patient was told to call back to move up appt is appt does not schedule soon. NOC closing GO TO THE EMERGENCY ROOM OR CALL 911 IF: * You develop any new symptoms * Your condition worsens * You are concerned or anxious about your condition for any other reason. If you have any questions, you can call Nurse senior production planner back. * Telephone Encounter - Venessa Riggins RN - 09/30/2023 11:36 AM EST Patient calling with request for physician referral: Patient referred to nephrology and primary care Department. Patient denies any new or worsening symptoms of which a provider is not aware: Yes. Patient was discharged from [facility] on 08/26 for low sodium and said he was referred to akidney specialist. He has non [facility] nephrology appt in December but would like a sooner kidney doctorappt here. Patient concerned about getting same illness again. He denies symptoms for today. Advised him to see a primary care provider and a kidney doctor as soon as possible. he plans to call his none PCP luis appt. Conferenced him to appt center and then call dropped. My [employer] lost connection. NOC closing was given GO TO THE EMERGENCY ROOM OR CALL 911 IF: * You develop any new symptoms * Your condition worsens * You are concerned or anxious about your condition for any other reason. If you have any questions, you can call Nurse senior production planner back. [facility]* Encounter Date Diagnosis Assessment Notes Treatment Notes Treatment Clinical Notes Sep, Hyponatremia (ICD-10 - E87.1) Recent sodium 136 at low end of normal, given significance of symptoms and recommendation of hospital for f/u will refer to nephrology patient requesting [place] Sep, Anticoagulant long-term use (ICD-10 - Z79.01) Follows with INR clinic through [facility]. Sep, Atrial fibrillation (ICD-10 - I48.91) Appears in NSR today, anticoagulated on Warfarin Sep, Hypothyroidism (ICD-10 - E03.9) Recent TFTs in normal range, clinically euthyroid, continue current dose of LT4 Sep, Type 2 diabetes mellitus (ICD-10 - E11.9) Recent a1c in good range at 5.6%, continue current dose of glimepiride. Sep, Immunization due (ICD-10 - Z23) [facility] Other 10-16-2023 Evaluation note* Encounter Date Diagnosis Assessment Notes Treatment Notes Treatment Clinical Notes Aug, Hyponatremia (ICD-10 - E87.1) [facility] Other 08-03-2023 Evaluation note* Encounter Date Diagnosis Assessment Notes Treatment Notes Treatment Clinical Notes Jun, Atrial fibrillation (ICD-10 - I48.91) Rate controlled, mild bradycardia but asymptomatic. Will continue current dose of atenolol. He is anticoagulated on Coumadin with goal INR 2-3, he is due for INR check. Will refer to coumadin clinic through [facility] Jun, Anticoagulant long-term use (ICD-10 - Z79.01) Jun, Hearing loss (ICD-10 - H91.90) Referral to local crate maker Jun, Dermatitis (ICD-10 - L30.9) Can trial topical steroid PRN, discussed may be secondary to dry skin. Recommend daily use of lotion Jun, Hypothyroidism (ICD-10 - E03.9) Due for TFTs prior to next visit Jun, Type 2 diabetes mellitus (ICD-10 - E11.9) Due for a1c prior to next visit Jun, BPH (benign prostatic hyperplasia) (ICD-10 - N40.0) [facility] Other 08-03-2023 Reason for referral (narrative)* Reason Medication managemen t through [facility] - Coumadin management with INR goal 2-3 Diagnosis 1 Anticoagulant long-t erm use (Z79.01) Referral Organization [facility] Family Rodo John Referring Provider First Name Jada Referring Provider Last Name Edgard Referring Provider Specialty Family [facility] Referred Organization [facility] Referred Address [address] [place], [place],[address] Referred Provider Specialty Milvia s Referral Priority Routine General Notes Gabrielle Reid 01/2023 01:34:29 PM >this is an order not a referral, clinical informed and will fax order over for standing order INR to [facility] Reason * FU 06/29 CALL he aring loss, issue with hearing aids Diagnosis 1 Hearing loss (H91.90 ) Referral Organization [facility] Rodo John Referring Provider First Name Jdaa Referring Provider Last Name [facility] Referring Provider Specialty [facility] [employer] Referred Organization [facility] Referred Address ,[place], [place],[address] Referred Provider Specialty Audiologists Referral Priority Routine General Notes Gabrielle Reid 01/2023 01:28:34 PM >referral received and faxed [employer] Other 04-27-2010 History of Past illness Narrative* Problem Noted Date Diagnosed Date Resolved Date Myalgia 03/10/2010 03/01/2011 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 and other lower urinary tract symptoms (LUTS) 08/11/2006 01/11/2013 Elevated prostate specific antigen (PSA) 03/07/2012 documented as of this encounter (statuses as of 09/30/2023) [facility] note[facility] InformationNort QB[facility] Other History general Narrative - Reported* Type Description Date Medical History type 2 diabetes Medical History hypothyroid Medical History Afib Surgical History multiple neck sx Surgical History tonsillectomy Surgical History adenoidectomy Surgical History MAU cataract Hospitalization History see above [employer] Other History general Narrative - Reported* Type Description Date Medical History type 2 diabetes Medical History hypothyroid Medical History Afib Surgical History multiple neck sx Surgical History tonsillectomy Surgical History adenoidectomy Surgical History MAU cataract Hospitalization History see above Hospitalization History low sodium- [facility] 10/2023 [employer] Other Summary Purpose Family History No Family History Records FoundNo Family History Records Found Advance Directives No Advanced Directives Records FoundNo Advanced Directives Records Found Reason for Referral Reason * FU 09/28 follow up hospitalization for symptomatic hyponatremia, [facility] [place] Dr. Lara ph [phone], fax [phone] Diagnosis 1 Hyponatremia (E87.1) Referral Organization [facility] Medicin tonny John Referring Provider First Name Jada Referring Provider Last Name [facility] Referring Provider Specialty [facility] [employer] Referred Organization [facility] Referred Provider Romeo Lara [address]erred Address [address] [place], [place],[address] Referred Provider Specialty Internal Med icine Referral Priority Routine General Notes Gabrielle Reid 06/2023 01:35:25 PM > referral received and faxed Clinical Notes [facility] [place] Dr. Lara [phone], fax [phone] Reason hyponatremia, recent hospitalization [facility] for hyponatremia Diagnosis 1 Hyponatremia (E87.1) Referral Organization [facility] Rodo lancaster Dequincy Referring Provider First Name Jada Referring Provider Last Name [facility] Referring Provider Family [facility] Referred Organization [facility] Referred Address [address] [place] [place], [place],[address] Referred Provider Specialty Nephrology Referral Priority Routine Additional Source Comments (unrecognized sect ion and content) No Status Records FoundNo Status Records Found INFORMATION SOURCE (unrecogn ized section and content) DATE CREATED AUTHOR 06/03/2020 [facility] l DATE CREATED AUTHOR AUTHOR'S ORGANIZ ATION 11/10/2023 [facility] REASON FOR VISIT (unrecogniz ed section and content) Reason Comments Refill Request Source Comments (unrecognize d section and content) In the event this informatio n is protected by the Federal Confidentiality of Alcohol and Drug Abuse Patient Records regulations: The Federal rules restrict any use of the information to criminally investigate or prosecute any alcohol or drug abuse patient.[facility] FOR RECORDS PERTAINING TO PATIENTS WHO ARE OR HAVE BEEN ENROLLED IN A CHEMICAL DEPENDENCY/SUBSTANCEABUSE PROGRAM, SOME INFORMATION MAY BE OMITTED. This clinical summary was aggregated from multiple sources. Caution should be exercised in using it in the provision of clinical care. This summary normalizes information from multiple sources, and as a consequence, information in this document may materially change the coding, format and clinical context of patient data. In addition, data may be omitted in some cases. CLINICAL DECISIONS SHOULD BE BASED ON THE PRIMARY CLINICAL RECORDS. [facility] [employer] provides no warranty or guarantee of the accuracy or completeness of information in this document.
[2023-11-13 10:59] LABS: Bilirubin Urine NEGATIVE (NEGATIVE); Blood Urine NEGATIVE (NEGATIVE); Clarity Urine CLEAR (CLEAR); Glucose Urine UA NEGATIVE (NEGATIVE); Ketones Urine NEGATIVE (NEGATIVE); Leukocyte Esterase Urine NEGATIVE (NEGATIVE); Nitrite Urine NEGATIVE (NEGATIVE); Protein Urine 30 mg/dL (NEG/TRACE); Urobilinogen Urine 0.2 EU/dL (0.2-1.0)
[2023-11-13 10:59] LABS: Basophils Absolute Auto 0.1 10^3/uL (0.0-0.1); Basophils Percent Auto 0.8 % (0.2-2.0); Eosinophils Percent Auto 0.3 % (0.9-7.0); Hematocrit 38.3 % (42.0-54.0); Hemoglobin 12.9 g/dL (14.0-18.0); Immature Granulocytes Abs Auto 0.01 10^3/uL (0.00-0.03); Immature Granulocytes Pct Auto 0.2 % (0.0-0.5); Lymphocytes Absolute Auto 0.4 10^3/uL (1.2-3.8); Lymphocytes Percent Auto 6.5 % (20.5-60.0); Mean Corpuscular HGB Conc 33.7 g/dL (29.9-35.2); Mean Corpuscular Hemoglobin 30.8 pg (25.9-34.0); Mean Corpuscular Volume 91.4 fL (80.0-94.0); Mean Platelet Volume 11.3 fL (9.5-13.5); Monocytes Absolute Auto 0.6 10^3/uL (0.3-0.8); Neutrophils Percent Auto 82.2 % (43.0-75.0); Platelet Count 142 10^3/uL (150-450); Red Blood Count 4.19 10^6/uL (4.70-6.10); Red Cell Distribution Width 13.2 % (11.0-15.0); White Blood Count 6.1 10^3/uL (4.0-11.0)
[2023-11-13 11:01] LABS: Color Urine YELLOW (YELLOW); Urine Microscopic Indicated NO
--- NOTE | 2023-11-13 11:04 | ED_ITS ---
HPI - Neuro Symptoms/Deficit General Chief Complaint: Neuro Symptoms/Deficit Stated Complaint: ALTERED MENTAL STATUS Time Seen by Provider: 11/13/23 10:22 Source: family Mode of arrival: ambulance History of Present Illness HPI Narrative: Length and83 years old male brought to us by his after she noted that he has been having some decreased appetite and nausea yesterday that today also started having a cough and she mentioned that he was not himself, upon presentation the patient denies any complain he was not sure he neurological symptoms but he was hard of hearing Related Data Home Medications Medication Instructions Recorded Confirmed atenolol 25 mg tablet 25 mg PO DAILY 08/21/23 11/13/23 glimepiride 2 mg tablet 2 mg PO DAILY 08/21/23 11/13/23 levothyroxine 25 mcg tablet 25 mcg PO QAM 08/21/23 11/13/23 meloxicam 15 mg tablet 15 mg PO DAILY 08/21/23 08/21/23 omeprazole 40 mg capsule,delayed 40 mg PO DAILY 08/21/23 11/13/23 release pravastatin 40 mg tablet 40 mg PO DAILY 08/21/23 11/13/23 sildenafil 100 mg tablet 100 mg PO DAILY PRN sexual activity 08/21/23 11/13/23 tamsulosin 0.4 mg capsule 0.4 mg PO DAILY 08/21/23 11/13/23 warfarin 5 mg tablet (Jantoven) 5 mg PO MOWEFR 08/21/23 11/13/23 warfarin 2.5 mg tablet (Jantoven) 2.5 mg PO .4 days a week 08/22/23 11/13/23 Previous Rx's Medication Instructions Recorded sodium chloride 1,000 mg soluble 1,000 mg PO TID #90 tabs 08/25/23 tablet Allergies Allergy/AdvReac Type Severity Reaction Status Date / Time No Known Drug Allergies Allergy Verified 08/21/23 15:00 Review of Systems ROS Status of ROS 10 or more systems reviewed and unremark able except as noted in history and below [facility] Medical History Acute confusion ?R41.0 - Disorientation, unspecified (ICD-10) Altered mental status ?R41.82 - Altered mental status, unspecified (ICD-10) Atrial fibrillation ?I48.91 - Unspecified atrial fibrillation (ICD-10) Diabetes ?E11.9 - Type 2 diabetes mellitus without complications (ICD-10) High cholesterol ?E78.00 - Pure hypercholesterolemia, unspecified (ICD-10) Social History Gender Identity: male Exam Narrative Exam Narrative: Nurses notes and vital signs reviewed and patient is not hypoxic. General: Well-appearing and in no apparent distress. Skin: Warm, dry, no pallor noted. No rash. Head: Normocephalic, atraumatic. Neck: Supple, non-tender. Eye: Pupils are equal, round and EOMI. No scleral icterus. Ears, Nose, Mouth, and Throat: TM are clear, no nasal mucosal hypertrophy. Oral mucosa is moist, no posterior oropharynx erythema, uvula is mid-line Cardiovascular: Regular Rate and Rhythm without murmur, gallop or rub. Respiratory: No accessory muscle use or respiratory distress. Lungs are clear to auscultation, no wheezing, rales or rhonchi Chest Wall: no tenderness Back: No midline thoracic or lumbar vertebral tenderness. No CVA tenderness Musculoskeletal: normal ROM, no calf or popliteal tenderness, no lower extremity edema/swelling, the patient did had some lower extremity bilaterally weakness generally And the patient NIHHS was 0 upon presentation GI: Abdomen is soft, non-distended. Normal bowel sounds. No masses appreciated. No tenderness to palpation. No rebound, guarding, or rigidity noted. Neurological: A&O x1. No cranial nerve dysfunction observed. No truncal ataxia. Moves all extremities. Sensation intact. Psychiatric: Cooperative and interactive. Normal mood and affect. Constitutional Vital Signs, click to edit/add: Last Vital Signs Temp 100.4 F 11/13/23 11:49 Pulse 89 11/13/23 12:26 Resp 18 11/13/23 12:26 BP 93/51 11/13/23 12:01 Pulse Ox 99 11/13/23 12:26 O2 Del Method Room Air 11/13/23 10:39 Course Vital Signs Vital signs: Vital Signs Temperature 99.9 F 11/13/23 10:22 Pulse Rate 83 11/13/23 10:22 Respiratory Rate 18 11/13/23 10:22 Blood Pressure 145/99 H 11/13/23 10:22 Pulse Oximetry 99 11/13/23 10:22 Oxygen Delivery Method Nonrebreather 11/13/23 10:22 Temperature 100.4 F 11/13/23 11:49 Pulse Rate 89 11/13/23 12:26 Respiratory Rate 18 11/13/23 12:26 Blood Pressure 93/51 11/13/23 12:01 Pulse Oximetry 99 11/13/23 12:26 Oxygen Delivery Method Room Air 11/13/23 10:39 MDM - Neuro Symptoms/Deficit MDM Narrative Medical decision making narrative: The patient EKG upon presentation showing sinus rhythm he does have history of A-fib and his rhythm initially was showing a heart rate o of 80 at A-fib rhythm but after a while the patient went up to 110 and that also due to fever The patient CBC shows no acute pathology the chemistry showing some hyponatremia that is better compared to the last time he was here The patient also have hypomagnesemia and his influenza A test is positive Chest x-ray showed no acute pathology and the CT head was negative Right now the patient does have history of dementia and apparently last time he was admitted he had his 3 of confusion to and he is weaker generally but not showing any acute neurological symptoms the patient yet will be admitted for further evaluation Patient case was discussed with Dr Vee Lab Data Labs: Lab Results 11/13/23 11/13/23 11/13/23 Range/Units 10:25 10:28 10:44 WBC 6.1 (4.0-11.0) 10^3/uL RBC 4.19 L (4.70-6.10) 10^6/uL Hgb 12.9 L (14.0-18.0) g/dL Hct 38.3 L (42.0-54.0) % MCV 91.4 (80.0-94.0) fL MCH 30.8 (25.9-34.0) pg MCHC 33.7 (29.9-35.2) g/dL RDW 13.2 (11.0-15.0) % Plt Count 142 L (150-450) 10^3/uL MPV 11.3 (9.5-13.5) fL Neut % (Auto) 82.2 H (43.0-75.0) % Lymph % (Auto) 6.5 L (20.5-60.0) % [place] % (Auto) 10.0 (1.7-12.0) % Eos % (Auto) 0.3 L (0.9-7.0) % Baso % (Auto) 0.8 (0.2-2.0) % Neut # (Auto) 5.0 (1.4-6.5) 10^3/uL Lymph # (Auto) 0.4 L (1.2-3.8) 10^3/uL [place] # (Auto) 0.6 (0.3-0.8) 10^3/uL Eos # (Auto) 0.0 (0.0-0.7) 10^3/uL Baso # (Auto) 0.1 (0.0-0.1) 10^3/uL Abs Immat Gran (auto) 0.01 (0.00-0.03) 10^3/uL Imm/Tot Granulo (auto) 0.2 (0.0-0.5) % PT 19.0 H (9.0-11.6) sec INR 1.86 APTT 32.8 (22.3-36.2) sec Sodium 129 L (136-145) mmol/L Potassium 4.8 (3.5-5.1) mmol/L Chloride 93 L (98-107) mmol/L Carbon Dioxide 28.6 (21.0-32.0) mmol/L Anion Gap 12.2 BUN 16.0 (7.0-18.0) mg/dL Creatinine 1.35 H (0.70-1.30) mg/dL Est GFR ( Amer) >60 (>=60) Est GFR (Non-Af Amer) 51 L (>=60) BUN/Creatinine Ratio 11.9 Glucose 132 H (74-106) mg/dL Lactate 1.4 (0.4-2.0) mmol/L Calcium 8.9 (8.5-10.1) mg/dL Magnesium 1.4 L (1.8-2.4) mg/dL Total Bilirubin 1.0 (0.2-1.0) mg/dL AST 23 (15-37) U/L ALT 23 (16-63) U/L Alkaline Phosphatase 82 (46-116) U/L Troponin I High Sens 8.8 (4.0-76.1) pg/mL Total Protein 7.0 (6.4-8.2) g/dL Albumin 3.7 (3.4-5.0) g/dL Globulin 3.3 g/dL Albumin/Globulin Ratio 1.1 Urine Color (YELLOW) Urine Clarity (CLEAR) Urine pH (5.0-9.0) Ur Specific [place] (1.005-1.025) Urine Protein (NEG/TRACE) mg/dL Urine Glucose (UA) (NEGATIVE) mg/dL Urine Ketones (NEGATIVE) mg/dL Urine Occult Blood (NEGATIVE) Urine Nitrite (NEGATIVE) Urine Bilirubin (NEGATIVE) Urine Urobilinogen (0.2-1.0) EU/dL Ur Leukocyte Esterase (NEGATIVE) SARS-CoV-2 (PCR) Negative (NEGATIVE) Influenza Type A Ag Positive A Influenza Type B Ag Negative POC Glucose 144 H (74-106) mg/dL 11/13/23 Range/Units 10:55 WBC (4.0-11.0) 10^3/uL RBC (4.70-6.10) 10^6/uL Hgb (14.0-18.0) g/dL Hct (42.0-54.0) % MCV (80.0-94.0) fL MCH (25.9-34.0) pg MCHC (29.9-35.2) g/dL RDW (11.0-15.0) % Plt Count (150-450) 10^3/uL MPV (9.5-13.5) fL Neut % (Auto) (43.0-75.0) % Lymph % (Auto) (20.5-60.0) % [place] % (Auto) (1.7-12.0) % Eos % (Auto) (0.9-7.0) % Baso % (Auto) (0.2-2.0) % Neut # (Auto) (1.4-6.5) 10^3/uL Lymph # (Auto) (1.2-3.8) 10^3/uL [place] # (Auto) (0.3-0.8) 10^3/uL Eos # (Auto) (0.0-0.7) 10^3/uL Baso # (Auto) (0.0-0.1) 10^3/uL Abs Immat Gran (auto) (0.00-0.03) 10^3/uL Imm/Tot Granulo (auto) (0.0-0.5) % PT (9.0-11.6) sec INR APTT (22.3-36.2) sec Sodium (136-145) mmol/L Potassium (3.5-5.1) mmol/L Chloride (98-107) mmol/L Carbon Dioxide (21.0-32.0) mmol/L Anion Gap BUN (7.0-18.0) mg/dL Creatinine (0.70-1.30) mg/dL Est GFR ( Amer) (>=60) Est GFR (Non-Af Amer) (>=60) BUN/Creatinine Ratio Glucose (74-106) mg/dL Lactate (0.4-2.0) mmol/L Calcium (8.5-10.1) mg/dL Magnesium (1.8-2.4) mg/dL Total Bilirubin (0.2-1.0) mg/dL AST (15-37) U/L ALT (16-63) U/L Alkaline Phosphatase (46-116) U/L Troponin I High Sens (4.0-76.1) pg/mL Total Protein (6.4-8.2) g/dL Albumin (3.4-5.0) g/dL Globulin g/dL Albumin/Globulin Ratio Urine Color Yellow (YELLOW) Urine Clarity Clear (CLEAR) Urine pH 6.0 (5.0-9.0) Ur Specific [place] 1.020 (1.005-1.025) Urine Protein 30 A (NEG/TRACE) mg/dL Urine Glucose (UA) Negative (NEGATIVE) mg/dL Urine Ketones Negative (NEGATIVE) mg/dL Urine Occult Blood Negative (NEGATIVE) Urine Nitrite Negative (NEGATIVE) Urine Bilirubin Negative (NEGATIVE) Urine Urobilinogen 0.2 (0.2-1.0) EU/dL Ur Leukocyte Esterase Negative (NEGATIVE) SARS-CoV-2 (PCR) (NEGATIVE) Influenza Type A Ag Influenza Type B Ag POC Glucose (74-106) mg/dL Discharge Plan Discharge Chief Complaint: Neuro Symptoms/Deficit Clinical Impression: RADHA (acute kidney injury), Influenza, Hypomagnesemia, Generalized weakness Patient Disposition: Admitted As Inpatient Time of Disposition Decision: 12:41
[2023-11-13 11:05] LABS: Influenza Virus A Antigen Positive; Influenza Virus B Antigen Negative; Internal Control Within Normal Limits
[2023-11-13 11:06] LABS: SARS-CoV-2 Ag NEGATIVE (NEGATIVE)
[2023-11-13 11:08] LABS: Lactate/Lactic Acid 1.4 mmol/L (0.4-2.0)
[2023-11-13 11:10] LABS: INR 1.86; Partial Thromboplastin Time 32.8 sec (22.3-36.2)
[2023-11-13 11:18] LABS: Alanine Aminotransferase 23 U/L (16-63); Albumin Globulin Ratio 1.1; Albumin Level 3.7 g/dL (3.4-5.0); Alkaline Phosphatase 82 U/L (46-116); Anion Gap 12.2; Aspartate Amino Transferase 23 U/L (15-37); BUN Creatinine Ratio 11.9; Calcium 8.9 mg/dL (8.5-10.1); Carbon Dioxide 28.6 mmol/L (21.0-32.0); Chloride 93 mmol/L (98-107); Estimated GFR (African America >60 (>=60); Estimated GFR (Non-African Ame 51 (>=60); Globulin 3.3 g/dL; Glucose 132 mg/dL (74-106); Potassium 4.8 mmol/L (3.5-5.1); Sodium 129 mmol/L (136-145); Troponin I High Sensitivity 8.8 pg/mL (4.0-76.1)
[2023-11-13 11:20] LABS: Magnesium 1.4 mg/dL (1.8-2.4)
--- NOTE | 2023-11-13 11:47 | ECG_ITS ---
[facility] Test Date: 2023-11-13 Pat Name: IND[place] ZABALA Department: Room: [facility] Gender: Male Past Due Accounts Clerk: : 1940 Requested By: Order Number: [id number] Reading MD: NATALEE INMAN Measurements Intervals Amigo Rate: 110 P: -[id number] FL: -[id number] QRS: 107 QRSD: 94 T: 39 QT: 316 QTc: 381 Interpretive Statements 84801 Atrial fibrillation with rapid ventricular response [address] depression,can't exclude lasteral ischemia 7100 Abnormal right axis deviation 8101 Low QRS voltage in limb leads 9150 abnormal ECG Electronically Signed On 11-14-2023 17:37:49 EST by NATALEE INMAN
[2023-11-13] MEDS: ACETAMINOPHEN 325 MG TABLET 650 MG PO (12:42)
[2023-11-13] MEDS: OSELTAMIVIR PHOSPHATE 75 MG CAPSULE PO ×2 (12:42→20:13)
[2023-11-13] MEDS: MAGNESIUM SULFATE IN WATER 2 GM/50 ML PREMIX IV (12:42)
--- OUTSIDE RECORDS SUMMARY | 2023-11-13 14:03 | XMS_ITS | CCD ---
Author Name Unknown Address [address] [place] [address] Organization [facility] Care Team Providers Care Aviation Project Manager Name Role Phone Jada Rene Unavailable Unavailable [...] on above: Take 1 capsule by mo [facility] twice daily. finasteride 5 mg oral tablet [...] sources) Long-term current use of anticoagulant; Translations: [rodent exterminator (current) use of anticoagulants] Episodic Other aftercare (2 sources) rodent exterminator (current) use of anticoagulants Episodic Other ear [...] of prostate] Onset: 11-02-2023 Unclassified (1 source) alf (current) use of anticoagulants; Translations: [rodent exterminator (current) use of anticoagulants] Onset: 06-16-2023 Results Test Name Value Interpretation Reference Range Facility Basic Metabolic Panelon 10-15 Anion gap [Moles/Vol] 8.1 mmol/L Normal 6.0-15.0 [facility] Comment on above: Order Comment: Yovanio n for Exam Hyponatremia Performed By: #### C BC, BMP #### [facility] [place] [address] Calcium [Mass/Vol] 9.3 mg/dL Normal 8.6-10.3 [facility] Comment on above: Order Comment: Reaso n for Exam Hyponatremia Result Comment: PERF ORMED BY: [place] [address] PATHOLOGIST SHIPWRIGHT SUPERVISOR DANNY NEAL M.D. Performed By: #### C BC, BMP #### [facility] [place] [address] Chloride [Moles/Vol] 102 mmol/L Normal 98-107 [facility] Other Comment on above: Order Comment: Reaso n for Exam Hyponatremia Performed By: #### C BC, BMP #### [address] CO2 [Moles/Vol] 32.4 mmol/L High 21.0-31.0 [facility] Comment on above: Order Comment: Reaso n for Exam Hyponatremia Performed By: #### C BC, BMP #### [address] Creatinine [Mass/Vol] 1.07 mg/dL Normal 0.70-1.30 [facility] Comment on above: Order Comment: Reaso n for Exam Hyponatremia Performed By: #### C BC, BMP #### [place] [address] [place] GFR/1.73 sq M.predicted MDRD (S/P/Bld) [Vol rate/Area] mL/min/{1.73_m2} Normal [facility] Other Comment on above: Order Comment: Reaso n for Exam Hyponatremia Performed By: #### C BC, BMP #### [place] [id number] [place] Glucose [Mass/Vol] 93 mg/dL Normal 70-100 [facility] Other Comment on above: Order Comment: Reaso n for Exam Hyponatremia Result Comment: [place] om Glucose Reference Range is dependent on time and content of last meal. Glucose of more than 200 mg/dL in a nonstressed, ambulatory subject supports the diagnosis of Diabetes Mellitus. ADA recommended reference range Performed By: #### C BC, BMP #### [address] [place] [address] [place] Potassium [Moles/Vol] 4.5 mmol/L Normal 3.5-5.1 [facility] Comment on above: Order Comment: Reaso n for Exam Hyponatremia Performed By: #### C BC, BMP #### [facility] [address] [place] [id number] [place] Sodium [Moles/Vol] 138 mmol/L Normal 136-145 [facility] Other Comment on above: Order Comment: Reaso n for Exam Hyponatremia Performed By: #### C BC, BMP #### [facility] [address] Urea nitrogen [Mass/Vol] 13 mg/dL Normal 7-25 [facility] Other Comment on above: Order Comment: Reaso n for Exam Hyponatremia Performed By: #### C BC, BMP #### [facility] [address] [place] [address] [place] Calcium [Mass/Vol] 9.0837014 mg/dL Normal 8.6-10.3 mg/ dL [facility] Other CO2 [Moles/Vol] 32.79427131 mmol/L High 21.0-3 1.0 mmol/L [facility] Other Creatinine [Mass/Vol] 1.56457374 mg/dL Normal 0.70-1.30 mg/dL [facility] Other Potassium [Moles/Vol] 4.95479178 mmol/L Normal 3.5-5.1 mmol/L [facility] Other Complete Blood Count Auto Di ffon 11-02-2023 Basophils (Bld) [#/Vol] 0.1 10*3/uL Normal 0.0-0.2 [facility] Comment on above: Order Comment: Reaso n for Exam Atrial fibrillation Result Comment: PERF ORMED BY: [place] [id number] PATHOLOGIST SHIPWRIGHT SUPERVISOR DANNY NEAL M.D. Performed By: #### C BC, BMP #### [facility] [place] [address] Basophils/100 WBC (Bld) 1.0 % Normal . [facility] Comment on above: Order Comment: Reaso n for Exam Atrial fibrillation Performed By: #### C BC, BMP #### [place] [address] [place] Eosinophils (Bld) [#/Vol] 0.1 10*3/uL Normal 0.0-0.45 [facility] Comment on above: Order Comment: Reaso n for Exam Atrial fibrillation Performed By: #### C BC, BMP #### [address] Eosinophils/100 WBC (Bld) 2.1 % Normal . [facility] Comment on above: Order Comment: Reaso n for Exam Atrial fibrillation Performed By: #### C BC, BMP #### [address] Erythrocyte distribution width (RBC) [Ratio] 14.0 % Normal 12.0-14.8 [facility] Comment on above: Order Comment: Reaso n for Exam Atrial fibrillation Performed By: #### C BC, BMP #### [address] Hematocrit (Bld) [Volume fraction] 38.8 % Normal 38.8-50.0 [facility] Comment on above: Order Comment: Reaso n for Exam Atrial fibrillation Performed By: #### C BC, BMP #### [address] Hemoglobin (Bld) [Mass/Vol] 13.2 g/dL Normal 13.0-17.0 [facility] Comment on above: Order Comment: Reaso n for Exam Atrial fibrillation Performed By: #### C BC, BMP #### [address] Lymphocytes (Bld) [#/Vol] 1.3 10*3/uL Normal 1.00-4.8 [facility] Comment on above: Order Comment: Reaso n for Exam Atrial fibrillation Performed By: #### C BC, BMP #### [address] Lymphocytes/100 WBC (Bld) 21.8 % Normal . [facility] Comment on above: Order Comment: Reaso n for Exam Atrial fibrillation Performed By: #### C BC, BMP #### [address] MCH (RBC) [Entitic mass] 31.5 pg Normal 27.5-35.2 [facility] Comment on above: Order Comment: Reaso n for Exam Atrial fibrillation Performed By: #### C BC, BMP #### [address] MCV (RBC) [Entitic vol] 92.7 fL Normal 83.5-101 [facility] Comment on above: Order Comment: Reaso n for Exam Atrial fibrillation Performed By: #### C BC, BMP #### [address] Mean Corpuscular HGB Conc 34.0 g/dL Normal 32.5-35.6 [facility] Comment on above: Order Comment: Reaso n for Exam Atrial fibrillation Performed By: #### C BC, BMP #### [address] Monocytes (Bld) [#/Vol] 0.5 10*3/uL Normal 0.0-0.8 [facility] Comment on above: Order Comment: Reaso n for Exam Atrial fibrillation Performed By: #### C BC, BMP #### [address] Monocytes/100 WBC (Bld) 8.5 % Normal . [facility] Comment on above: Order Comment: Reaso n for Exam Atrial fibrillation Performed By: #### C BC, BMP #### [address] Neutrophils (Bld) [#/Vol] 4.0 10*3/uL Normal 1.8-7.7 [facility] Comment on above: Order Comment: Reaso n for Exam Atrial fibrillation Performed By: #### C BC, BMP #### [facility] [address] [place] [address] [place] Neutrophils/100 WBC (Bld) 66.6 % Normal . [facility] Comment on above: Order Comment: Reaso n for Exam Atrial fibrillation Performed By: #### C BC, BMP #### [facility] [address] [place] [address] [place] NRBC% 0.1 /100{WBC} Normal 0-0.5 [facility] Comment on above: Order Comment: Reaso n for Exam Atrial fibrillation Performed By: #### C BC, BMP #### [facility] [place] [address] Platelet mean volume (Bld) [Entitic vol] 9.4 fL Normal 6.6-10.1 [facility] Comment on above: Order Comment: Reaso n for Exam Atrial fibrillation Performed By: #### C BC, BMP #### [facility] [place] [address] Platelets (Bld) [#/Vol] 153 10*3/uL Normal 150-450 [facility] Other Comment on above: Order Comment: Reaso n for Exam Atrial fibrillation Performed By: #### C BC, BMP #### [facility] [place] [address] [place] [address] [place] RBC (Bld) [#/Vol] 4.19 10*6/uL Normal 3.90-5.60 [facility] Other Comment on above: Order Comment: Reaso n for Exam Atrial fibrillation Performed By: #### C BC, BMP #### [facility] [address] [place] [address] [place] WBC (Bld) [#/Vol] 6.1 10*3/uL Normal 4.1-10.5 [facility] Comment on above: Order Comment: Reaso n for Exam Atrial fibrillation Performed By: #### C BC, BMP #### [facility] [address] [place] [address] [place] Basophils (Bld) [#/Vol] 0.545184785 10*3/uL Normal 0.0-0.2 10*3/uL [facility] Other Basophils/100 WBC (Bld) 1.000 % . % [facility] Other Eosinophils (Bld) [#/Vol] 0.978328477 10*3/uL Normal 0.0-0.45 10*3/uL [facility] Other Eosinophils/100 WBC (Bld) 2.100 % . % [facility] Other Erythrocyte distribution width (RBC) [Ratio] 14.000 % Normal 12.0-14.8 % [facility] Other Hematocrit (Bld) [Volume fraction] 38.800 % Normal 38.8-50.0 % [facility] Other Hemoglobin (Bld) [Mass/Vol] 13.799019 g/dL Normal 13.0-17.0 g/dL [facility] Other Lymphocytes (Bld) [#/Vol] 1.474260683 10*3/uL Normal 1.00-4.8 10*3/uL [facility] Other Lymphocytes/100 WBC (Bld) 21.800 % . % [facility] Other MCH (RBC) [Entitic mass] 31.5000 pg Normal 27.5-35.2 pg [facility] Other MCV (RBC) [Entitic vol] 92.7000 fL Normal 83.5-101 fL [facility] Other Monocytes (Bld) [#/Vol] 0.099203879 10*3/uL Normal 0.0-0.8 10*3/uL [facility] Other Monocytes/100 WBC (Bld) 8.500 % . % [facility] Other Neutrophils (Bld) [#/Vol] 4.186181458 10*3/uL Normal 1.8-7.7 10*3/uL [facility] Other Neutrophils/100 WBC (Bld) 66.600 % . % [facility] Other Platelet mean volume (Bld) [Entitic vol] 9.4000 fL Normal 6.6-10.1 fL [facility] Other WBC (Bld) [#/Vol] 6.266127287 10*3/uL Normal 4.1 -10.5 10*3/uL [facility] Other Complete Blood Count Auto Diff 6.1 10*3/uL Normal 4.1-10.5 10*3/uL [facility] Other Complete Blood Count Auto Diff 34.0 g/dL Normal 32.5-35.6 g/dL [facility] Other Complete Blood Count Auto Diff 0.1 /100{WBC} Normal 0-0.5 /100{WBC} [facility] Other PSA Screen (Yearly Only)on 01-03-2023 PSA Screen (Yearly Only) 1.940 ng/mL Normal 0.000-4.000 [facility] Comment on above: Order Comment: Reaso n for Exam Prostate cancer screening Result Comment: Seri al tumor marker results determined by assays using different manufacturers or methods may not be comparable. [facility] boiler reliner and method: AREVS DXI, CHEMILUMINESCENT IMMUNOASSAY. PERFORMED BY: [place] [address] PATHOLOGIST SHIPWRIGHT SUPERVISOR DANNY NEAL M.D. Performed By: #### P SAS #### [address] Prothrombin Time INRon 06-16 INR Coag (PPP) [Relative time] 2.4 {INR} Normal [facility] Other Comment on above: Result Comment: INR [...] heart valves: 3 - 4.5 PERFORMED BY: [place] [address] PATHOLOGIST SHIPWRIGHT SUPERVISOR DANNY NEAL M.D. Performed By: #### P T #### [facility] [address] [place] [id number] [facility] PT Coag (PPP) [Time] 27.8 s High 9.0-12.9 [facility] Comment on above: Performed By: #### P T #### [facility] [address] [place] [address] [facility] PT Coag (PPP) [Time] 27.800 s High 9.0-12.9 s [facility] Other Coding Summaryon 05-12-2020 Coding Summary CODING DATE: 05/12/2020 [facility] STATUS: Home PAYOR: Medicare MC ADMIT [...] Horan Date Saved: 05/12/2020 02:18 pm Normal [facility] ED Clinical Summaryon 2019 ED Clinical Summary [facility] ? Urgent Care [address] [place], [place] [id number] Clinical Summary PERSON INFORMATION Name: DARIEL AGUILERA Age: 80 Years Sex: MALE : 1940 MRN: Acct#: Visit Reason: UC - Ear Problem; BILAT EAR PROBLEM Arrival: 05/08/2020 09:32:00 Discharge: 05/08/2020 10:15:00 LOS: 000 00:43 Check In: 05/08/2020 09:32:00 Checkout: 05/08/2020 10:15:00 Address: [place] [address] PCP: Provider, Unlisted PROVIDER INFORMATION Provider Role [...] Earwax Buildup, Adult Follow-Up: With: Address: When: [facility], [address] [place] [id number] Business (1) Comments: Please follow-up with your Doctor or Dr. Arellano, Medical Doctor instructional assistant, call their offices and make ointment to be seen in 3 days or sooner for continued care, please purchase rnyo-rok-plfcplc Debrox which helps breakdown earwax, take all your medications as previously prescribed, drink plenty of water for hydration, and return back to urgent care center for any worsening symptoms, concerns, or complications. DIAGNOSIS: 1:Impacted cerumen of both ears Patient Understands: Yes - Patient/family/caregi francesca verbalizes understanding of instructions given Comment: Normal [facility] ED Patient Summaryon 020 ED Patient Summary [facility] ? Urgent Care [address] [place] [address] [id number] PATIENT DISCHARGE INSTRUCTIONS Patient Information Name: DARIEL AGUILERA Age: 80 Years Date of : 1940 Reason For Visit: UC - Ear Problem; BILAT EAR PROBLEM Arrival Time: 05/08/2020 09:32:00 Primary Care Physician: Provider, Unlisted Attending Physician: Larry Billingsley PA-C Comment: Patient Education With: Address: When: [facility], [address] [place], [place] [id number] Business (1) Comments: Please follow-up with your Doctor or Dr. Arellano, Medical Doctor instructional assistant, call their offices and make ointment to be seen in 3 days or sooner for continued care, please purchase [id number] Debrox which helps breakdown earwax, take all [...] Follow these instructions at home: ? Take taae-qqk-xzxyegv and prescription medicines only as told by [...] clean them according to instructions from the boiler reliner and your health care provider. Contact a [...] 12/08/2005 Document Revised: 10/12/2018 Document Reviewed: 01/11/2018 [employer] Patient Education ? 2019 [employer] Medication Information: The exam and treatment you received today in the [facility] were for an urgent problem and are not intended as complete care. It is important for you to follow up with a doctor, nurse practitioner, or physician?s spa assistant manager for ongoing care. If your symptoms become [...] so we can reach you if necessary. [facility] Emergency Department has provided you with a complete list of medications post discharge. Please inform your electron beam welder setter/provider of your visit and for further instruction [...] both ears (H61.23) UC - Ear Problem ([id number]) If you received any narcotics, sedation, or [...] for Disease Control and Prevention July 2014 [facility] Patient Handouton 05-08-2020 Patient Handout Patient Education [...] Follow these instructions at home: ? Take avza-acu-tgkhemz and prescription medicines only as told by [...] clean them according to instructions from the boiler reliner and your health care provider. Contact a [...] 12/08/2005 Document Revised: 10/12/2018 Document Reviewed: 01/11/2018 [employer] Interactive Patient Education ? 2019 [employer]. Normal [facility] Urgent Care Recordon 020 Urgent Care Record [facility] ? Urgent Care [address] [place] [id number] PATIENT DISCHARGE INSTRUCTIONS Patient Information Name: DARIEL AGUILERA Age: 80 Years Date of : 1940 Reason For Visit: UC - Ear Problem; BILAT EAR PROBLEM Arrival Time: 05/08/2020 09:32:00 Primary Care Physician: Provider, Unlisted Attending Physician: Larry Billingsley PA-C Comment: Visit Diagnosis: Diagnoses This Visit Impacted cerumen of both ears (H61.23) UC - Ear Problem ([id number]) If you received any narcotics, sedation, or [...] legal documents With: Address: When: Andréslisa Arellano [facility], [address] [place], [place] [id number] Business (1) Comments: Please follow-up with your Doctor or Dr. Arellano, Medical Doctor instructional assistant, call their offices and make ointment to be seen in 3 days or sooner for continued care, please purchase bght-qfm-karaenf Debrox which helps breakdown earwax, take all your medications as previously prescribed, drink plenty of water for hydration, and return back to urgent care center for any worsening symptoms, concerns, or complications. Medication Information: The exam and treatment you received today in the [facility] were for an urgent problem and are not intended as complete care. It is important for you to follow up with a doctor, nurse practitioner, or physician?s spa assistant manager for ongoing care. If your symptoms become [...] so we can reach you if necessary. [facility] Care has provided you with a complete list of medications post discharge. Please inform your electron beam welder setter/provider of your visit and for further instruction [...] Follow these instructions at home: ? Take fndx-xok-umnvuzk and prescription medicines only as told by [...] clean them according to instructions from the boiler reliner and your health care provider. Contact a [...] 12/08/2005 Document Revised: 10/12/2018 Document Reviewed: 01/11/2018 [employer] Patient Education ? 2019 [employer] Viruses or Bacteria What?s got you [...] for Disease Control and Prevention July 2014 [facility] Vital Signs Date Time Vital Sign Value Performing Clinician Facility 11-02-2023 13:00-0500 Body height 180.34 cm Jada Rene Other [facility] Other 11-02-2023 13:00-0500 Body mass index (BMI) [Ratio] 24.4 kg/m2 Jada Rene Other [facility] Other 11-02-2023 13:00-0500 Body weight 79.38 kg Jada Rene Other [facility] Other 11-02-2023 13:00-0500 Diastolic blood pressure 82 mm[Hg] Jada Rene Other [facility] Other 11-02-2023 13:00-0500 Respiratory rate 18 /min Jada Rene Other [facility] Other 11-02-2023 13:00-0500 SaO2% (BldA) [Mass fraction] 97 % Jada Rene Other [facility] Other 11-02-2023 13:00-0500 Systolic blood pressure 138 mm[Hg] Jada Rene Other [facility] Other 09-21-2023 10:00-0500 Body height 180.34 cm Jada Rene Other [facility] Other 09-21-2023 10:00-0500 Body mass index (BMI) [Ratio] 25.81 kg/m2 Jada Rene Other [facility] Other 09-21-2023 10:00-0500 Body weight 83.96 kg Jada Rene Other [facility] Other 09-21-2023 10:00-0500 Diastolic blood pressure 70 mm[Hg] Jada Rene Other [facility] Other 09-21-2023 10:00-0500 Respiratory rate 18 /min Jadayomi Rene Other [facility] Other 09-21-2023 10:00-0500 SaO2% (BldA) [Mass fraction] 98 % Jadamary Rene Other [facility] Other 09-21-2023 10:00-0500 Systolic blood pressure 140 mm[Hg] Jada Rene Other [facility] Other 06-16-2023 11:00-0400 Body height 180.34 cm Jada Rene Other [facility] Other 06-16-2023 11:00-0400 Body mass index (BMI) [Ratio] 23.79 kg/m2 Jada Rene Other [facility] Other 06-16-2023 11:00-0400 Body weight 77.38 kg Jada Rene Other [facility] Other 06-16-2023 11:00-0400 Diastolic blood pressure 64 mm[Hg] Jadamary Rene Other [facility] Other 06-16-2023 11:00-0400 Respiratory rate 18 /min Jada Rene Other [facility] Other 06-16-2023 11:00-0400 SaO2% (BldA) [Mass fraction] 98 % Jada Rene Other [facility] Other 06-16-2023 11:00-0400 Systolic blood pressure 118 mm[Hg] Jada Rene Other [facility] Other Encounters Encounter Date Encounter Type Care Provider Facility Start: 11-02-2023 End: 11-02-2023 ambulatory Jada Schumacher [facility] Other Start: 11-02-2023 Office outpatient vi sit 25 minutes Jaad Rene [facility] Start: 11-02-2023 Telephone encounter Jadayomi Rene [facility] Start: 10-28-2023 End: 10-28-2023 ambulatory Jadayomi Rene Other [facility] Other Start: 10-28-2023 Telephone encounter Jadayomi Rene [facility] Start: 09-30-2023 End: 09-30-2023 Nurse Triage Venessa Riggins RN NURSE CLIENT EXPERIENCE SPECIALIST Comment on above: Refill Request Start: 09-30-2023 Telephone encounter Jada Rene [facility] Start: 09-21-2023 End: 09-21-2023 ambulatory Jadamary Rene Other [facility] Other Start: 09-21-2023 Office outpatient vi sit 25 minutes Jada Rene [facility] Start: 08-29-2023 End: 08-29-2023 ambulatory Jadayomi Rene Other [facility] Other Start: 08-29-2023 Telephone encounter Jada Rene [facility] Start: 08-26-2023 End: 08-26-2023 ambulatory Jadayomi Rene Other [facility] Other Start: 08-26-2023 Telephone encounter Jada Rene [facility] Start: 08-08-2023 End: 08-08-2023 ambulatory Jadamary Rene Other [facility] Other Start: 08-08-2023 Telephone encounter Jada Rene [facility] Start: 07-27-2023 End: 07-27-2023 ambulatory Jada Rene Other [facility] Other Start: 07-27-2023 Telephone encounter Jada Rene [facility] Start: 06-16-2023 End: 06-16-2023 ambulatory Jada Rene [employer] [place] Other Start: 06-16-2023 Office outpatient ne w 45 minutes Jada [facility] Start: 06-16-2023 Telephone encounter Jada Rene [facility] Plan of Treatment Date Care Activity Detail Author Start: 07-15-2023 Influenza vaccination Influenza Vacc ine (#1) [facility] Start: 11-14-2022 Advance Directive Discussion Advance Directive Discussion [facility] Start: 11-14-2022 Depression Assessment Depression Ass essment [facility] Start: 03-31-2016 Pneumococcal Vaccine : 65+ (2 - PPSV23 or PCV20) Pneumococcal Vaccine: 65+ (2 - PPSV23 or PCV20) [facility] Start: 03-24-2016 Hepatitis B surface antibody level LDL Cholesterol [facility] Start: 09-24-2015 Hemoglobin A1c/Hemoglobin.total in Blood HbA1C [facility] Start: 08-01-2015 3 comp foot exam completed Diabetic Foot Exam [facility] Start: 07-25-2015 Hepatitis B screening Urine Al bumin:Creatinine Ratio [facility] Start: 02-01-2015 Urine microalbumin profile DTaP,Tdap,Td Vaccine (1 - Tdap) [facility] Start: 10-24-2013 Shingrix Vaccine (2 of 3) Shingrix V accine (2 of 3) [facility] Start: 09-14-2012 Hepatitis C antibody , confirmatory test Dilated Retinal Exam [facility] Start: 2002 RSV Vaccine (1 - 1-d ose 60+ series) RSV Vaccine (1 - 1-dose 60+ series) [facility] Start: 1940 Covid-19 Vaccine (#1) Covid-19 Vacci ne (#1) [facility] Immunizations Immunization Date Immunization Notes Care Provider Sandrita escobar 09-21-2023 Prevnar 20 Jada Edgard Other [facility] Other 08-14-2022 influenza, seasonal, injectable Jadamary Rene Other [facility] Other 03-31-2015 pneumococcal conjuga te vaccine, 13 valent Jada Rene Other [facility] 08-02-2014 influenza, high dose seasonal, preservative-free Venessa Riggins RN [facility] 08-02-2014 influenza virus vaccine, unspecified formulation Venessa Riggins RN [facility] 08-29-2013 zoster vaccine, live Venessa Riggins RN [facility] 08-09-2013 influenza virus vaccine, unspecified formulation Venessa Riggins RN [facility] 07-31-2012 influenza virus vaccine, unspecified formulation Venessa Riggins RN [facility] Work Phone: 03-07-2012 tetanus and diphther ia toxoids, adsorbed, preservative free, for adult use (2 Lf of tetanus toxoid and 2 Lf of diphtheria toxoid) Venessa Riggins RN [facility] Work Phone: 08-07-2011 influenza virus vaccine, unspecified formulation Venessa Riggins RN [facility] Work Phone: Payers Date Payer Category Payer Medicare [id number] 2023 Self-pay 2023 Medicare [employer] [facility] [id number] 2023-Present [phone] [address] [place] [address] O [id number] Medicare [id number] Unknown [id number] Unknown [id number] Social History Date Type Detail Facility Sex Assigned At [facility] Other Tobacco smoking stat [facility] Never smoked tobacco [facility] Start: 06-28-2022 Alcohol intake Current drinke r of alcohol (finding) [facility] Start: 06-28-2022 Alcohol intake [facility] Start: 1940 Sex Assigned At Not on file [facility] Medical Equipment Procedure Code Equipment Code Equipment [...] further dizziness symptoms would recommend f/u with dowel setting machine operator as well. [facility] Other 11-17-2023 Evaluation note* Encounter Date Diagnosis Assessment Notes Treatment Notes Treatment Clinical Notes Sep, Type 2 diabetes mellitus (ICD-10 - E11.9) [facility] Other 11-17-2023 Miscellaneous Notes* Telephone Encounter - Venessa Riggins RN - 09/30/2023 12:29 PM EST Called patient back and reviewed plan from his call with Nurse Telemarketing Manager at 11:36 AM. See my note Patient [...] have any questions, you can call Nurse numerical control tool programmer back. * Telephone Encounter - Venessa Riggins RN - 09/30/2023 11:36 AM EST Patient calling with request for physician referral: Patient referred to nephrology and primary care Department. Patient denies any new or worsening symptoms of which a provider is not aware: Yes. Patient was discharged from [facility] on 08/26 for low sodium and said [...] appt center and then call dropped. My [place] and [employer] lost connection. NOC closing was given GO TO THE EMERGENCY ROOM OR CALL 911 IF: * You develop any new symptoms * Your condition worsens * You are concerned or anxious about your condition for any other reason. If you have any questions, you can call Nurse numerical control tool programmer back. documented in this encounter[facility]* Encounter Date Diagnosis Assessment Notes Treatment Notes Treatment Clinical Notes Sep, Hyponatremia (ICD-10 - E87.1) Recent sodium 136 at low end of normal, given significance of symptoms and recommendation of hospital for f/u will refer to nephrology patient requesting [place] Sep, Anticoagulant long-term use (ICD-10 - Z79.01) Follows with INR clinic through [facility]. Sep, Atrial fibrillation (ICD-10 - I48.91) Appears in NSR today, anticoagulated on Warfarin Sep, Hypothyroidism (ICD-10 - E03.9) Recent TFTs in normal range, clinically euthyroid, continue current dose of LT4 Sep, Type 2 diabetes mellitus (ICD-10 - E11.9) Recent a1c in good range at 5.6%, continue current dose of glimepiride. Sep, Immunization due (ICD-10 - Z23) [facility] Other 10-16-2023 Evaluation note* Encounter Date Diagnosis Assessment Notes Treatment Notes Treatment Clinical Notes Aug, Hyponatremia (ICD-10 - E87.1) [facility] Other 08-03-2023 Evaluation note* Encounter Date Diagnosis Assessment Notes Treatment Notes Treatment Clinical Notes Jun, Atrial fibrillation (ICD-10 - I48.91) Rate controlled, mild bradycardia but asymptomatic. Will continue current dose of atenolol. He is anticoagulated on Coumadin with goal INR 2-3, he is due for INR check. Will refer to coumadin clinic through [facility] Jun, Anticoagulant long-term use (ICD-10 - Z79.01) Jun, Hearing loss (ICD-10 - H91.90) Referral to local [facility] Jun, Dermatitis (ICD-10 - L30.9) Can trial topical steroid PRN, discussed may be secondary to dry skin. Recommend daily use of lotion Jun, Hypothyroidism (ICD-10 - E03.9) Due for TFTs prior to next visit Jun, Type 2 diabetes mellitus (ICD-10 - E11.9) Due for a1c prior to next visit Jun, BPH (benign prostatic hyperplasia) (ICD-10 - N40.0) [facility] Other 08-03-2023 Reason for referral (narrative)* Reason Medication managemen t through [facility] - Coumadin management with INR goal 2-3 Diagnosis 1 Anticoagulant long-t erm use (Z79.01) Referral Organization [facility] Family Rodo John Referring Provider First Name Jada Referring Provider Last Name Edgard Referring Provider Specialty [facility] Referred Organization [facility] Referred Address [address], [place],[address] Referred Provider Specialty Milvia s Referral Priority Routine General Notes Gabrielle Reid 01/2023 01:34:29 PM >this is an order not a referral, clinical informed and will fax order over for standing order INR to [facility] Reason * FU 06/29 CALL he aring loss, issue with hearing aids Diagnosis 1 Hearing loss (H91.90 ) Referral Organization [facility] Rodo John Referring Provider First Name Jada Referring Provider Last Name [facility] Referring Provider Specialty [facility] Referred Organization [facility] Referred Address ,[place], [place],[address] Referred Provider Specialty Audiologists Referral Priority Routine General Notes Gabrielle Reid 01/2023 01:28:34 PM >referral received and faxed [facility] Other 04-27-2010 History of Past illness Narrative* Problem Noted Date Diagnosed Date Resolved Date Myalgia 03/10/2010 03/01/2011 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 and other lower urinary tract symptoms (LUTS) 08/11/2006 01/11/2013 Elevated prostate specific antigen (PSA) 03/07/2012 documented as of this encounter (statuses as of 09/30/2023) [facility] noteNo InformationNort [employer] Other History general Narrative - Reported* Type Description Date Medical History type 2 diabetes Medical History hypothyroid Medical History Afib Surgical History multiple neck sx Surgical History tonsillectomy Surgical History adenoidectomy Surgical History MAU cataract Hospitalization History see above [facility] Other History general Narrative - Reported* Type Description Date Medical History type 2 diabetes Medical History hypothyroid Medical History Afib Surgical History multiple neck sx Surgical History tonsillectomy Surgical History adenoidectomy Surgical History MAU cataract Hospitalization History see above Hospitalization History low sodium- [facility] 10/2023 [facility] Other Summary Purpose Family History No Family History Records FoundNo Family History Records Found Advance Directives No Advanced Directives Records FoundNo Advanced Directives Records Found Reason for Referral Reason * FU 09/28 follow up hospitalization for symptomatic hyponatremia[facility] [place] Dr. Lara ph [phone], fax [phone] Diagnosis 1 Hyponatremia (E87.1) Referral Organization [facility] Medic[facility] tonny John Referring Provider First Name Jada Referring Provider Last Name [facility] Referring Provider Specialty [facility] Referred Organization [facility] Referred Provider Romeo Lara [place]erred [address] [place], [place],[address] Referred Provider Specialty Internal Med icine Referral Priority Routine General Notes Gabrielle Reid 06/2023 01:35:25 PM > referral received and faxed Clinical Notes [facility] [place] Dr. Lara [phone], fax [phone] Reason hyponatremia, recent hospitalization [facility] Diagnosis 1 Hyponatremia (E87.1) Referral Organization [facility] [place] Referring Provider First Name Jada Referring Provider Last Name [facility] Referring Provider [facility] Referred Organization [facility] [place]erred [place] [address] [place],[address] Referred Provider Specialty Nephrology Referral Priority Routine Additional Source Comments (unrecognized sect ion and content) No Status Records FoundNo Status Records Found INFORMATION SOURCE (unrecogn ized section and content) DATE CREATED AUTHOR 06/03/2020 [place] [facility] DATE CREATED AUTHOR AUTHOR'S ORGANIZ ATION 11/10/2023 [facility] REASON FOR VISIT (unrecogniz ed section and content) Reason Comments Refill Request Source Comments (unrecognize d section and content) In the event this informatio n is protected by the Federal Confidentiality of Alcohol and Drug Abuse Patient Records regulations: The Federal rules restrict any use of the information to criminally investigate or prosecute any alcohol or drug abuse patient.[facility] FOR RECORDS PERTAINING TO PATIENTS WHO ARE [...] BE BASED ON THE PRIMARY CLINICAL RECORDS. [facility] [employer] provides no warranty or guarantee of the accuracy or completeness of information in this document.
[2023-11-13 15:50] LABS: Glucometer 117 mg/dL (74-106)
[2023-11-13] MEDS: WARFARIN SODIUM 2.5 MG TABLET PO (16:23)
[2023-11-13] MEDS: 0.9 % SODIUM CHLORIDE 1,000 ML 100 ML IV (16:23)
[2023-11-13 20:08] LABS: Glucometer 114 mg/dL (74-106)
[2023-11-14] VITALS (18 sets, daily range): BP systolic 170–182; BP diastolic 79–99; PULSE 56–81; RESP 16–18; TEMP 36.9–37.2; O2SAT 92–96
[2023-11-14] MEDS: METOPROLOL TARTRATE 5 MG/5 ML VIAL IVP (00:46)
[2023-11-14] MEDS: 0.9 % SODIUM CHLORIDE 1,000 ML 100 ML IV ×3 (02:12→21:10)
[2023-11-14] MEDS: LEVOTHYROXINE SODIUM 25 MCG TABLET PO (05:33)
[2023-11-14] MEDS: OMEPRAZOLE 40 MG CAPSULE.DR PO (05:33)
[2023-11-14 05:42] LABS: Basophils Percent Auto 0.8 % (0.2-2.0); Eosinophils Percent Auto 0.2 % (0.9-7.0); Hematocrit 37.3 % (42.0-54.0); Hemoglobin 12.8 g/dL (14.0-18.0); Immature Granulocytes Abs Auto 0.01 10^3/uL (0.00-0.03); Immature Granulocytes Pct Auto 0.2 % (0.0-0.5); Lymphocytes Absolute Auto 0.6 10^3/uL (1.2-3.8); Lymphocytes Percent Auto 12.4 % (20.5-60.0); Mean Corpuscular HGB Conc 34.3 g/dL (29.9-35.2); Mean Corpuscular Hemoglobin 30.8 pg (25.9-34.0); Mean Corpuscular Volume 89.9 fL (80.0-94.0); Mean Platelet Volume 11.5 fL (9.5-13.5); Monocytes Absolute Auto 0.7 10^3/uL (0.3-0.8); Monocytes Percent Auto 12.9 % (1.7-12.0); Neutrophils Absolute Auto 3.8 10^3/uL (1.4-6.5); Neutrophils Percent Auto 73.5 % (43.0-75.0); Platelet Count 114 10^3/uL (150-450); Red Blood Count 4.15 10^6/uL (4.70-6.10); Red Cell Distribution Width 12.9 % (11.0-15.0); White Blood Count 5.2 10^3/uL (4.0-11.0)
[2023-11-14 05:51] LABS: INR 1.49; Prothrombin Time 15.4 sec (9.0-11.6)
[2023-11-14 05:52] LABS: Anion Gap 13.6; BUN Creatinine Ratio 13.9; Calcium 8.6 mg/dL (8.5-10.1); Carbon Dioxide 21.9 mmol/L (21.0-32.0); Chloride 93 mmol/L (98-107); Estimated GFR (African America >60 (>=60); Estimated GFR (Non-African Ame >60 (>=60); Glucose 116 mg/dL (74-106); Magnesium 1.8 mg/dL (1.8-2.4); Potassium 4.5 mmol/L (3.5-5.1)
[2023-11-14 06:26] LABS: Sodium 124 mmol/L (136-145)
[2023-11-14] MEDS: MELOXICAM 7.5 MG TABLET 15 MG PO (08:40)
[2023-11-14] MEDS: TAMSULOSIN HCL 0.4 MG CAPSULE PO (08:40)
[2023-11-14] MEDS: ATENOLOL 25 MG TABLET PO ×2 (08:40→21:09)
[2023-11-14] MEDS: ATORVASTATIN CALCIUM 10 MG TABLET PO (08:40)
[2023-11-14] MEDS: OSELTAMIVIR PHOSPHATE 75 MG CAPSULE PO ×2 (08:40→21:09)
[2023-11-14] MEDS: GLIMEPIRIDE 2 MG TABLET PO (08:40)
[2023-11-14 11:48] LABS: Glucometer 110 mg/dL (74-106)
--- NOTE | 2023-11-14 12:34 | P.HP_ITS ---
H&P: HPI History of Present Illness Chief complaint: ALTERED MENTAL STATUS/CONFUSION Narrative: 83 y/o male to ER with confusion. reports decreased appetite and weakness for a few days. Noticed cough and SOB. Patient not acting self and became very confused. To ER and temp 100.4. WBC and chest x-ray normal. Sodium low at 129. Positive for influenza and admitted. History of hyponatremia admitted in August with nephrology work up. Discharged home with oral NaCl but stopped after 30 days because completed treatment. Feels slightly better this am but still confusion. Review of Systems ROS Constitutional Reports: fever and fatigue; Denies: chills Cardiovascular Denies: chest pain, palpitations or edema Respiratory Reports: shortness of breath and cough; Denies: wheezing Gastrointestinal Denies: abdominal pain, nausea, vomiting or diarrhea Genitourinary Denies: painful urination [facility] Medical History (Updated 11/14/23 @ 10:38 by Rush Vee MD) Influenza ?J11.1 - Influenza due to unidentified influenza virus with other respiratory manifestations (ICD-10) Hypomagnesemia ?E83.42 - Hypomagnesemia (ICD-10) Acute hyponatremia ?E87.1 - Hypo-osmolality and hyponatremia (ICD-10) Acute confusion ?R41.0 - Disorientation, unspecified (ICD-10) Diabetes ?E11.9 - Type 2 diabetes mellitus without complications (ICD-10) High cholesterol ?E78.00 - Pure hypercholesterolemia, unspecified (ICD-10) Atrial fibrillation ?I48.91 - Unspecified atrial fibrillation (ICD-10) Family History (Updated 11/13/23 @ 14:03 by Ashwini Ramirez RN) Father Family history of myocardial infarction Family history of hypertension Mother Family history of cancer Family history of diabetes mellitus Social History (Updated 11/13/23 @ 14:03 by Ashwini Ramirez RN) Within the past year, how often did you have a drink containing alcohol: 2-4 times a month Smoking status: Never smoker Highest level of school completed/degree received: high school graduate Gender Identity: male Meds Home Medications and Allergies Home Medications Medication Instructions Recorded Confirmed Type atenolol 25 mg tablet 25 mg PO DAILY 08/21/23 11/13/23 History glimepiride 2 mg tablet 2 mg PO DAILY 08/21/23 11/13/23 History levothyroxine 25 mcg tablet 25 mcg PO QAM 08/21/23 11/13/23 History meloxicam 15 mg tablet 15 mg PO DAILY 08/21/23 11/13/23 History omeprazole 40 mg capsule,delayed 40 mg PO DAILY 08/21/23 11/13/23 History release pravastatin 40 mg tablet 40 mg PO DAILY 08/21/23 11/13/23 History sildenafil 100 mg tablet 100 mg PO DAILY PRN sexual activity 08/21/23 11/13/23 History tamsulosin 0.4 mg capsule 0.4 mg PO DAILY 08/21/23 11/13/23 History warfarin 5 mg tablet (Jantoven) 5 mg PO MOWEFR 08/21/23 11/13/23 History warfarin 2.5 mg tablet (Jantoven) 2.5 mg PO .4 days a week 08/22/23 11/13/23 History finasteride 5 mg tablet 5 mg PO .qd 11/13/23 11/13/23 History Allergies Allergy/AdvReac Type Severity Reaction Status Date / Time No Known Drug Allergies Allergy Verified 08/21/23 15:00 Exam Constitutional Vital Signs, click to edit/add: Last Vital Signs Temp 98.9 F 11/14/23 08:40 Pulse 70 11/14/23 12:00 Resp 16 11/14/23 05:01 BP 176/81 H 11/14/23 08:40 Pulse Ox 92 L 11/14/23 05:01 O2 Del Method Room Air 11/14/23 05:01 Documenting provider has reviewed patient's vital signs: yes Common normals: no apparent distress, oriented x3 and alert [facility] Common normals: normocephalic Eye Common normals: PERRL and EOMs intact bilaterally Respiratory Common normals: normal respiratory effort and clear to auscultation bilaterally Cardio Common normals: regular rate, regular rhythm, no gallops, no murmurs and no rub GI Common normals: Normal to inspection, nondistended, normoactive bowel sounds present and non-tender Extremity Common normals: no pedal edema Results Labs Labs: Short CBC 11/14/23 Range/Units 05:21 WBC 5.2 (4.0-11.0) 10^3/uL Hgb 12.8 L (14.0-18.0) g/dL Hct 37.3 L (42.0-54.0) % Plt Count 114 L (150-450) 10^3/uL BMP 11/14/23 05:21 Sodium 124 L* Potassium 4.5 Chloride 93 L Carbon Dioxide 21.9 BUN 11.0 Creatinine 0.79 Glucose 116 H Calcium 8.6 Assessment and Plan Assessment and Plan (1) Influenza A: (2) Hyponatremia: (3) Paroxysmal atrial fibrillation: (4) Altered mental status: (5) Type 2 diabetes mellitus with hyperglycemia: (6) Generalized weakness: (7) Hypomagnesemia: (8) RADHA (acute kidney injury): Plan Presented with altered mental status and found influenza A and low sodium. Started on tamiflu and continue. No improvement with IV fluids and resume oral NaCl. Monitor labs. Developed episode of rapid afib overnight and given IV dose lopressor. Increase atenolol to BID. Start PT/OT for weakness. Resume home medication. Patient will need at least 2 midnights in the hospital. Urinary Catheter Management Urinary Catheter Management Straight: Cath placed during this visit: yes Urethral indwelling: Yes Reason for continuing: not indwelling catheter Insertion date: 11/14/23 Insertion time: 01:58 Urethral: Cath placed during this visit: yes Urethral indwelling: No Insertion date: 11/14/23 Insertion time: 01:58
[2023-11-14] MEDS: HYOSCYAMINE SULFATE 0.125 MG TAB.SUBL SL ×2 (13:27→21:09)
[2023-11-14] MEDS: SODIUM CHLORIDE 1,000 MG TABLET 1000 MG PO ×2 (13:27→21:09)
[2023-11-14 14:51] LABS: SARS-CoV-2 NAA NOT DETECTED (NOT DETECTE)
[2023-11-14 17:20] LABS: Glucometer 85 mg/dL (74-106)
[2023-11-14] MEDS: WARFARIN SODIUM 5 MG TABLET PO (17:20)
[2023-11-14] MEDS: ACETAMINOPHEN 500 MG TABLET 1000 MG PO (21:08)
[2023-11-14 21:09] LABS: Glucometer 104 mg/dL (74-106)
[2023-11-15] VITALS (10 sets, daily range): BP systolic 128–144; BP diastolic 75–78; PULSE 44–81; RESP 18–20; TEMP 36.7–36.8; O2SAT 93–94
[2023-11-15] MEDS: SODIUM CHLORIDE 1,000 MG TABLET 1000 MG PO (05:22)
[2023-11-15] MEDS: LEVOTHYROXINE SODIUM 25 MCG TABLET PO (05:22)
[2023-11-15] MEDS: OMEPRAZOLE 40 MG CAPSULE.DR PO (05:23)
[2023-11-15 06:10] LABS: INR 1.31; Prothrombin Time 13.7 sec (9.0-11.6)
[2023-11-15 06:13] LABS: Basophils Percent Auto 0.8 % (0.2-2.0); Eosinophils Absolute Auto 0.1 10^3/uL (0.0-0.7); Hematocrit 38.1 % (42.0-54.0); Immature Granulocytes Abs Auto 0.01 10^3/uL (0.00-0.03); Immature Granulocytes Pct Auto 0.2 % (0.0-0.5); Lymphocytes Absolute Auto 0.8 10^3/uL (1.2-3.8); Lymphocytes Percent Auto 17.1 % (20.5-60.0); Mean Corpuscular HGB Conc 34.1 g/dL (29.9-35.2); Mean Corpuscular Hemoglobin 30.9 pg (25.9-34.0); Mean Corpuscular Volume 90.5 fL (80.0-94.0); Monocytes Absolute Auto 0.8 10^3/uL (0.3-0.8); Monocytes Percent Auto 16.5 % (1.7-12.0); Neutrophils Absolute Auto 3.1 10^3/uL (1.4-6.5); Neutrophils Percent Auto 64.4 % (43.0-75.0); Platelet Count 118 10^3/uL (150-450); Red Blood Count 4.21 10^6/uL (4.70-6.10); Red Cell Distribution Width 12.9 % (11.0-15.0); White Blood Count 4.8 10^3/uL (4.0-11.0)
[2023-11-15 06:18] LABS: Anion Gap 11.5; BUN Creatinine Ratio 11.3; Calcium 8.8 mg/dL (8.5-10.1); Chloride 96 mmol/L (98-107); Estimated GFR (African America >60 (>=60); Estimated GFR (Non-African Ame >60 (>=60); Glucose 84 mg/dL (74-106); Magnesium 1.7 mg/dL (1.8-2.4); Potassium 4.5 mmol/L (3.5-5.1); Sodium 131 mmol/L (136-145)
[2023-11-15] MEDS: 0.9 % SODIUM CHLORIDE 1,000 ML 100 ML IV (06:40)
[2023-11-15] MEDS: ATENOLOL 25 MG TABLET PO (09:20)
[2023-11-15] MEDS: ATORVASTATIN CALCIUM 10 MG TABLET PO (09:20)
[2023-11-15] MEDS: GLIMEPIRIDE 2 MG TABLET PO (09:21)
[2023-11-15] MEDS: MELOXICAM 7.5 MG TABLET 15 MG PO (09:21)
[2023-11-15] MEDS: TAMSULOSIN HCL 0.4 MG CAPSULE PO (09:21)
[2023-11-15] MEDS: OSELTAMIVIR PHOSPHATE 75 MG CAPSULE PO (09:21)
[2023-11-15 11:21] LABS: Glucometer 104 mg/dL (74-106)
--- NOTE | 2023-11-15 11:58 | CM.NOTE ---
Rounds made with Dr. Vee. Awaiting P.T. assessment to determine discharge needs.
--- NOTE | 2023-11-15 12:15 | PM.DS1 ---
DS: Providers Provider Date of admission: 11/13/23 13:43 Primary care physician: JOSE ENRIQUE BOSCH Consults: 11/13/23 14:49 Occupational Therapy Eval and Treat Routine Reason for consultation: Weakness Physical Therapy Eval and Treat Routine Reason for consultation: Weakness DS: Diagnosis Discharge Diagnosis (1) Influenza A: (2) Hyponatremia: (3) Paroxysmal atrial fibrillation: (4) Altered mental status: (5) Type 2 diabetes mellitus with hyperglycemia: (6) Generalized weakness: (7) Hypomagnesemia: (8) RADHA (acute kidney injury): DS: Summary Hospital Course Hospital Course: Reason for admission: See H&P for details. 83 y/o male to ER with confusion. reports decreased appetite and weakness for a few days. Noticed cough and SOB. Patient not acting self and became very confused. To ER and temp 100.4. WBC and chest x-ray normal. Sodium low at 129. Positive for influenza and admitted. Hospital course: Started tamiflu and IV fluids. Developed rapid afib and given IV lopressor which controlled pulse. Converted back to NSR. History of hyponatremia admitted in August with nephrology work up. Discharged home with oral NaCl but stopped after 30 days because completed treatment. Resumed oral NaCl. Slowly improved but continued confusion. Atenolol increased to BID. Strength improved. Seen by PT and did well. Recommended home health. Discharged in stable condition. Will take tamiflu x 4 days. Continue NaCl and atenolol BID. Resume other home meds as directed. F/u with PCP in 1-2 weeks. Time Spent with Patient Time attestation: Total time spent providing and/or coordinating discharge services: Exam Constitutional Vital Signs, click to edit/add: Last Vital Signs Temp 98.1 F 11/15/23 04:21 Pulse 81 11/15/23 09:56 Resp 20 11/15/23 04:21 BP 144/78 H 11/15/23 04:21 Pulse Ox 94 L 11/15/23 09:13 O2 Del Method Nasal Cannula 11/15/23 09:13 Documenting provider has reviewed patient's vital signs: yes Common normals: no apparent distress, oriented x3 and alert [facility] Common normals: normocephalic Eye Common normals: PERRL and EOMs intact bilaterally Respiratory Common normals: normal respiratory effort and clear to auscultation bilaterally Cardio Common normals: regular rate, regular rhythm, no gallops, no murmurs and no rub GI Common normals: Normal to inspection, nondistended, normoactive bowel sounds present and non-tender Extremity Common normals: no pedal edema DS: Data Data Completed and Pending Labs on day of discharge: Labs from last 24 hours 11/15/23 11/15/23 11/14/23 11:20 05:10 21:07 WBC 4.8 RBC 4.21 L Hgb 13.0 L Hct 38.1 L MCV 90.5 MCH 30.9 MCHC 34.1 RDW 12.9 Plt Count 118 L MPV 12.0 Neut % (Auto) 64.4 Lymph % (Auto) 17.1 L [place] % (Auto) 16.5 H Eos % (Auto) 1.0 Baso % (Auto) 0.8 Neut # (Auto) 3.1 Lymph # (Auto) 0.8 L [place] # (Auto) 0.8 Eos # (Auto) 0.1 Baso # (Auto) 0.0 Abs Immat Gran (auto) 0.01 Imm/Tot Granulo (auto) 0.2 PT 13.7 H INR 1.31 Sodium 131 L Potassium 4.5 Chloride 96 L Carbon Dioxide 28.0 Anion Gap 11.5 BUN 11.0 Creatinine 0.97 Est GFR ( Amer) >60 Est GFR (Non-Af Amer) >60 BUN/Creatinine Ratio 11.3 Glucose 84 Calcium 8.8 Magnesium 1.7 L SARS-CoV-2 RNA (SUDEEP) POC Glucose 104 104 11/14/23 11/13/23 17:18 10:28 WBC RBC Hgb Hct MCV MCH MCHC RDW Plt Count MPV Neut % (Auto) Lymph % (Auto) [place] % (Auto) Eos % (Auto) Baso % (Auto) Neut # (Auto) Lymph # (Auto) [place] # (Auto) Eos # (Auto) Baso # (Auto) Abs Immat Gran (auto) Imm/Tot Granulo (auto) PT INR Sodium Potassium Chloride Carbon Dioxide Anion Gap BUN Creatinine Est GFR ( Amer) Est GFR (Non-Af Amer) BUN/Creatinine Ratio Glucose Calcium Magnesium SARS-CoV-2 RNA (SUDEEP) Not detected POC Glucose 85 Discharge Plan Discharge Disposition: Home Health Service Discharge Medications: New oseltamivir 75 mg Capsule 75 mg PO BID 4 Days Qty: 8 0RF Protocol: Tamiflu (1-12 yrs) Condition: Weight < 15kg Dose/Route: 30 mg Instruction: PO Condition: Weight 15-23 kg Dose/Route: 45 mg Instruction: PO Condition: Weight 24-40 kg Dose/Route: 60 mg Instruction: PO Condition: Weight > 41 kg Dose/Route: 75 mg Instruction: PO sodium chloride 1,000 mg Tablet,Soluble 1,000 mg PO TID Qty: 90 0RF atenolol 25 mg Tablet 25 mg PO BID Qty: 60 0RF Continued glimepiride 2 mg tablet 2 mg PO DAILY levothyroxine 25 mcg tablet 25 mcg PO QAM meloxicam 15 mg tablet 15 mg PO DAILY omeprazole 40 mg capsule,delayed release(DR/EC) 40 mg PO DAILY pravastatin 40 mg tablet 40 mg PO DAILY sildenafil 100 mg tablet 100 mg PO DAILY PRN (Reason: sexual activity) tamsulosin 0.4 mg capsule 0.4 mg PO DAILY warfarin [Jantoven] 5 mg tablet 5 mg PO WE Rx Instructions: takes on tuesday, and tue per [facility] warfarin [Jantoven] 2.5 mg tablet 2.5 mg PO .4 days a week Rx Instructions: Takes on Tuesday, , and tue per coumadin clinic finasteride 5 mg tablet 5 mg PO .qd Discontinued atenolol 25 mg tablet 25 mg PO DAILY Activity: resume usual activities as tolerated Diet: advance to your usual diet Patient Instructions: Oseltamivir (By mouth), Sodium Chloride (By mouth), Hyponatremia (DC), Influenza (DC) Forms: Portal Instructions
--- NOTE | 2023-11-15 12:35 | CM.NOTE ---
Discussed with pt and regarding PT recommendations and HH services, pt and both refuse HH services at this time.
--- NOTE | 2023-11-16 15:17 | CM.DCFOLLOWU ---
1st attempt. No answer 11/16
--- NOTE | 2023-11-17 14:17 | CM.DCFOLLOWU ---
Person spoke with: patient and How are you feeling? Still a little confused in my head but ok How is your pain? none Did you understand your discharge instructions? states yes, patient had a few medication questions Do you have any questions about your discharge instructions? how do I take my atenolol? Informed patient per the discharge instructions, he was taking it once a day and now they have increased the atenolol to twice a day. Pt. and voiced understanding. Were you given any prescriptions at discharge? yes Were you able to get your prescriptions filled? yes Do you understand how to take your medications as ordered? yes, see above Do you have any questions about your follow up appointment and do you plan to keep your follow up appointment? No. Plan on keeping the appointment for tomorrow. Is there anything else that you would like to discuss? no thank you Questions/Comments/Concerns/Other: n/a
== END 2023-11-15 14:25 | disposition home or self-care (01) | DRG 194 ==
LOC: ER 12:42 → MS 14:00
PROVIDERS: Admitting Provider Family Medicine; Emergency Provider Emergency Medicine; PCP Family Medicine; Visit Provider Family Medicine
DX: J10.1 Influenza due to other identified influenza virus with other respiratory manifestations (principal); E87.1 Hypo-osmolality and hyponatremia; N17.9 Acute kidney failure, unspecified; I48.0 Paroxysmal atrial fibrillation; R41.82 Altered mental status, unspecified; E11.65 Type 2 diabetes mellitus with hyperglycemia; R53.1 Weakness; E83.42 Hypomagnesemia; E78.00 Pure hypercholesterolemia, unspecified; Z79.899 Other long term (current) drug therapy; Z79.01 Long term (current) use of anticoagulants; Z79.890 Hormone replacement therapy; Z79.84 Long term (current) use of oral hypoglycemic drugs; Z83.3 Family history of diabetes mellitus; Z82.49 Family history of ischemic heart disease and other diseases of the circulatory system; Z80.9 Family history of malignant neoplasm, unspecified
CPT/HCPCS: 36415; 51702; 51798; 70450; 71045; 80048; 80053; 81003; 82948; 83605; 83735; 84484; 85025; 85610; 85730; 87635; 87804; 87811; 93005; 94761; 96361; 96365; 96375; 97161; 99285

== ENCOUNTER 2023-11-14 00:39 | Outpatient (RCR) | payer OTHER, SELFPAY | END 2023-12-14 15:46 | disposition home or self-care (01) | LOC: MM 00:39 | PROVIDERS: PCP Family Medicine; Visit Provider Internal Medicine | DX: Z51.81 Encounter for therapeutic drug level monitoring (principal); Z79.01 Long term (current) use of anticoagulants; I48.20 Chronic atrial fibrillation, unspecified | CPT/HCPCS: 85610; G0463 ==

== ENCOUNTER 2023-12-15 00:43 | Outpatient (RCR) | payer OTHER, SELFPAY | END 2024-01-12 17:09 | disposition home or self-care (01) | LOC: MM 00:43 | PROVIDERS: PCP Family Medicine; Visit Provider Internal Medicine | DX: Z51.81 Encounter for therapeutic drug level monitoring (principal); Z79.01 Long term (current) use of anticoagulants; I48.20 Chronic atrial fibrillation, unspecified | CPT/HCPCS: 85610; G0463 ==

== ENCOUNTER 2024-01-13 03:24 | Outpatient (RCR) | payer OTHER, SELFPAY | END 2024-02-10 14:04 | disposition home or self-care (01) | LOC: MM 03:24 | PROVIDERS: PCP Family Medicine; Visit Provider Internal Medicine | DX: Z51.81 Encounter for therapeutic drug level monitoring (principal); Z79.01 Long term (current) use of anticoagulants; I48.20 Chronic atrial fibrillation, unspecified ==

== ENCOUNTER 2024-02-13 03:18 | Outpatient (RCR) | payer OTHER, SELFPAY | END 2024-03-13 17:45 | disposition home or self-care (01) | LOC: MM 03:18 | PROVIDERS: PCP Family Medicine; Visit Provider Internal Medicine | DX: Z51.81 Encounter for therapeutic drug level monitoring (principal); Z79.01 Long term (current) use of anticoagulants; I48.20 Chronic atrial fibrillation, unspecified | CPT/HCPCS: 85610; G0463 ==

== ENCOUNTER 2024-03-10 13:16 | Emergency (ER) | payer OTHER, SELFPAY ==
[2024-03-10 13:21] VITALS: BP 126/71; PULSE 87; TEMP 37.2; O2SAT 96; BMI 26.6
--- OUTSIDE RECORDS SUMMARY | 2024-03-10 13:23 | XMS_ITS | CCD ---
Author Organization [facility] Care Team Providers Care Cilnical Scientist Name Role Phone Jada Rene Unavailable Unavailable Primary Care Provider Unavailrogerio e Cathleen Reneria Yomi Attending Unavailable Edgard Jada A Admitting Unavailable Edgard, Jada A Primary Care Unavailable Edgard Jada A Attending Unavailable Edgard Jada A Admitting Unavailable Edgard, Jada A Primary Care Unavailable Kylah Garcia Primary Care Physician AXEL HERNÁNDEZ Referring Unavailable AXEL HERNÁNDEZ Attending Unavailable KYLAH GARCIA Referring Unavailable Kylah Garcia Attending Unavailable Kylah Garcia Attending Unavailable Kylah Garcia Attending Unavailable Kylah Garcia Admitting Unavailable Axel Hernández Admitting Unavailable Axel Hernández Attending Unavailable Axel Hernández Referring Unavailable Kylah Garcia Attending Unavailable Kylah Garcia Attending Unavailable Kylah Garcia Attending Unavailable Kylah Garcia Attending Unavailable Allergies Allergy Classification Reported Allergen(s) Allergy Type Date of Onset Reaction(s) Facility (1 source) No Known Medication Allergies; Translations: [No Known Medication Allergies] Propensity to adverse reactions (disorder) [facility] Repository Medications Current Medications Medication Drug Class(es) Dates Sig (Normalized) Sig (Original) atenolol 25 mg oral tablet (17 sources) beta-Adrenergic Chema Start: 02-22-2024 take 1 tablet by mouth once daily atenolol 25 mg Tab 25 mg = 1 tab(s), Oral, Daily, # 90 tab(s), Refills(s) 0, [facility], cm, 02/02/24 10:29:00 EDT, Height/Length Dosing, 84.1, kg, 02/02/24 10:29:00 EDT, Weight Dosing Start Date: 02/22/24 Status: Ordered Start: 12-01-2023 take 1 tablet by alyssa th once daily atenolol 25 mg Tab 25 mg = 1 tab(s), Oral, Daily, Refills(s) 0 Start Date: 12/01/23 Status: Ordered Start: 10-06-2015 atenolol (TENO RMIN) 25 mg tablet TAKE 1 TABLET ONE TIME DAILY 90 tablet 3 10/06/2015 Active take 1 tablet by alyssa th every twelve hours Atenolol 25 MG 1 tablet Orally twice a day for 90 days Active Comment on above: TAKE 1 TABLET ONE TI ME DAILY cholecalciferol 0.125 mg oral capsule (14 sources) Vitamin D take 1 capsule by mouth every twenty-four hours CoQ10 (1 source) Start: 4 CoQ10 Refills(s) 0 Start Date: 03/06/24 Status: Ordered finasteride 5 mg oral tablet (17 sources) 5-alpha Reductase Inhibitor Start: take 1 tablet by mouth once daily finasteride 5 mg Tab 5 mg = 1 tab(s), Oral, Daily, # 90 tab(s), Refills(s) 0, Pharmacy: [facility], 178.2, cm, 12/01/23 13:40:00 EST, Height/Length Dosing, 85.5, kg, 12/01/23 13:40:00 EST, Weight Dosing Start Date: 01/18/24 Status: Ordered Start: 10-09-2014 take 1 tablet by alyssa once daily finasteride 5 mg Tab 5 mg = 1 tab(s), Oral, Daily, Refills(s) 0 Start Date: 12/01/23 Status: Ordered Comment on above: Take 1 tablet by alyssa th once daily. gabapentin 300 mg oral capsule (16 sources) Anti-epileptic Agent Start: 02-22-2024 take 1 capsule by mouth once daily gabapentin 300 mg Cap 300 mg = 1 cap(s), Oral, Daily, # 90 cap(s), Refills(s) 0, Pharmacy: [facility], 178.2, cm, 02/02/24 10:29:00 EDT, Height/Length Dosing, 84.1, kg, 02/02/24 10:29:00 EDT, Weight Dosing Start Date: 02/22/24 Status: Ordered Start: 12-01-2023 take 1 capsule by mo [facility] once daily gabapentin 300 mg Cap 300 mg = 1 cap(s), Oral, Daily, Refills(s) 0 Start Date: 12/01/23 Status: Ordered glimepiride 2 mg oral tablet (17 sources) Sulfonylurea Start: 02-13-2024 take 1 tablet by mouth once daily glimepiride 2 mg Tab 2 mg = 1 tab(s), Oral, Daily, # 90 tab(s), Refills(s) 1, Pharmacy: [facility], 178.2, cm, 02/02/24 10:29:00 EDT, Height/Length Dosing, 84.1, kg, 02/02/24 10:29:00 EDT, Weight Dosing Start Date: 02/13/24 Status: Ordered Start: 10-14-2014 take 1 tablet by alyssa once daily glimepiride 2 mg Tab 2 mg = 1 tab(s), Oral, Daily, Refills(s) 0 Start Date: 12/01/23 Status: Ordered Comment on above: Take 1 tablet by alyssa once daily. levothyroxine sodium 0.025 mg oral tablet (16 sources) l-Thyroxine Start: take 1 tablet by mouth once daily levothyroxine 25 mcg (0.025 mg) Tab 25 mcg = 1 tab(s), Oral, Daily, on an empty stomach, # 90 tab(s), Refills(s) 1, Pharmacy: [facility], 178.2, cm, 02/02/24 10:29:00 EDT, Height/Length Dosing, 84.1, kg, 02/02/24 10:29:00 EDT, Weight Dosing Start Date: 02/13/24 Status: Ordered Start: 12-01-2023 take 1 tablet by alyssa once daily levothyroxine 25 mcg (0.025 mg) Tab 25 mcg = 1 tab(s), Oral, Daily, on an empty stomach, Refills(s) 0 Start Date: 12/01/23 Status: Ordered take 1 tablet by alyssa once daily in the morning Levothyroxine Sodium 25 MCG 1 tablet in the morning on an empty stomach Orally Once a day Active take 1 tablet by alyssa th once daily in the morning Levothyroxine Sodium 25 MCG 1 tablet in the morning on an empty stomach Orally Once a day Active meloxicam 15 mg oral tablet (12 sources) Nonsteroidal Anti-inflammatory Drug Start: 12-01-2023 take 1 tablet by mouth once daily as needed meloxicam 15 mg Tab 15 mg = 1 tab(s), Oral, Daily, as needed, Refills(s) 0 Start Date: 12/01/23 Status: Ordered take 1 tablet by alyssa th once daily as needed Meloxicam 15 MG 1 tablet PRN Orally Once a day for 90 days Active omeprazole 40 mg delayed release oral capsule (16 sources) Proton Pump Inhibitor Start: 03-05-2024 take 1 capsule by mouth once daily omeprazole 40 mg Cap-DR 40 mg = 1 cap(s), Oral, Daily, # 90 cap(s), Refills(s) 0, Pharmacy: [facility], 178.2, cm, 02/02/24 10:29:00 EDT, Height/Length Dosing, 84.1, kg, 02/02/24 10:29:00 EDT, Weight Dosing Start Date: 03/05/24 Status: Ordered Start: 12-01-2023 omeprazole 40 mg Cap-DR 40 mg = 1 cap(s), Oral, Daily, 30 minutes before morning meal, Refills(s) 0 Start Date: 12/01/23 Status: Ordered pravastatin sodium 40 mg oral tablet (17 sources) HMG-CoA Reductase Inhibitor Start: 02-22-2024 take 1 tablet by mouth once daily pravastatin 40 mg Tab 40 mg = 1 tab(s), Oral, Daily, # 90 tab(s), Refills(s) 0, Pharmacy: [facility], 178.2, cm, 02/02/24 10:29:00 EDT, Height/Length Dosing, 84.1, kg, 02/02/24 10:29:00 EDT, Weight Dosing Start Date: 02/22/24 Status: Ordered Start: 10-09-2014 take 1 tablet by alyssa th once daily pravastatin 40 mg Tab 40 mg = 1 tab(s), Oral, Daily, Refills(s) 0 Start Date: 12/01/23 Status: Ordered Comment on above: Take 1 tablet by alyssa th daily at bedtime. sildenafil 100 mg oral tablet (4 sources) Phosphodiesterase 5 Inhibitor Start: 02-02-20 take 1 tablet by mouth once daily as needed sildenafil 100 mg Tab 100 mg = 1 tab(s), Oral, Daily, PRN for erectile dysfunction, 1 hour before sexual activity, # 5 tab(s), Refills(s) 0, Pharmacy: [facility], 178.2, cm, 02/02/24 10:29:00 EDT, Height/Length Dosing, 84.1, kg, 02/02/24 10:29:00 EDT, Weight Dosing Start Date: 02/02/24 Status: Ordered take 1 tablet by [facility] every twenty-four hours Sildenafil Citrate 100 MG 1 tablet as needed Orally Once a day Active Sodium Chloride (4 sources) Start: 12-23-2023 take 1 tablet by mouth twice daily Sodium Chloride 1 g oral tablet See Instructions, TAKE 1 TABLET BY MOUTH TWICE DAY, # 90 tab(s), Refills(s) 2, Pharmacy: [facility], 178.2, cm, 12/01/23 13:40:00 EST, Height/Length Dosing, 85.5, kg, 12/01/23 13:40:00 EST, Weight Dosing Start Date: 12/23/23 Status: Ordered take 1 tablet by mouth three izaiah es daily Sodium Chloride 1000 MG 1 tablet Orally Three times a day Active tamsulosin hydrochloride 0.4 mg oral capsule (17 sources) alpha-Adrenergic Chema Start: 02-22-2024 take 1 capsule by mouth once daily tamsulosin 0.4 mg Cap 0.4 mg = 1 cap(s), Oral, Daily, # 90 cap(s), Refills(s) 0, Pharmacy: [facility], 178.2, cm, 02/02/24 10:29:00 EDT, Height/Length Dosing, 84.1, kg, 02/02/24 10:29:00 EDT, Weight Dosing Start Date: 02/22/24 Status: Ordered Start: 10-14-2014 take 1 capsule by mo [facility] once daily tamsulosin 0.4 mg Cap 0.4 mg = 1 cap(s), Oral, Daily, Refills(s) 0 Start Date: 12/01/23 Status: Ordered Comment on above: Take 1 capsule by mo uth daily at bedtime. triamcinolone acetonide 1 mg /ml topical cream (14 sources) Corticosteroid Start: 06-16-2023 Start: 06-16-2023 Triamcinolone Acetonide 0.1 % 1 application Externally BID for 14 days Jun, Active Turmeric Curcumin 500 MG (14 sources) Turmeric Curcumi n 500 MG as directed Orally Active turmeric extract 500 mg oral capsule (1 source) Start: 03-06-2024 Turmeric 500 m g oral capsule Refills(s) 0 Start Date: 03/06/24 Status: Ordered ubidecarenone 200 mg oral capsule (14 sources) vitamin B12 (2 sources) Vitamin B12 Start: 03-06-2024 Vitamin B12 Re fills(s) 0 Start Date: 03/06/24 Status: Ordered Start: 07-28-2011 take 1 tablet by alyssa th once daily cyanocobalamin 1,000 mcg ORAL Tab Take 1 tablet by mouth once daily. 0 07/28/2011 Active Comment on above: Take 1 tablet by alyssa th once daily. Vitamin D3 5000 intl units (125 mcg) oral tab (2 sources) Start: 12-01-2023 take 1 tablet by mouth once daily Vitamin D3 5000 intl units (125 mcg) oral tab 125 mcg = 1 tab(s), Oral, Daily, Refills(s) 0 Start Date: 12/01/23 Status: Ordered warfarin sodium 5 mg oral tablet (19 sources) Vitamin K Antagonist Start: 03-06-2024 take 1 tablet by mouth once daily Jantoven 5 mg oral tablet 5 mg = 1 tab(s), Oral, Daily, Refills(s) 0, Blood Thinner Start Date: 03/06/24 Status: Ordered Start: 12-01-2023 take 0.5 tablet by m outh every other day, then take 1 tablet by mouth every other day warfarin 5 mg Tab See Instructions, 0.5 tab(s) orally every other day and 1 tab every other day, Refills(s) 0 Start Date: 12/01/23 Status: Ordered Warfarin 5mg 5 m g 1 tablet on Tuesday, Tuesday, Tuesday orally Active Warfarin 2.5mg 2 .5 mg 1 tablet on Tuesday, Tuesday, , Tuesday orally Active take 1 tablet by alyssa th every other day Warfarin 5mg 5 mg [...] above: Take one (1) tablet daily . Blood-Glucose Meter (CONTOUR METER) monitoring kit (1 [...] above: Take 1 capsule by mo uth twice daily. Problems Problem Classification Problem Date Documented Date Episodic/Chronic Allergic reactions (1 source) Dermatitis, unspecified Episodic Cardiac dysrhythmias (20 sources) Atrial fibrillation; Translations: [Unspecified atrial fibrillation] Onset: 08-22-2014 Chronic Diabetes mellitus without complication (20 sources) Type 2 diabetes mellitus; Translations: [Type 2 diabetes mellitus without complications] Chronic Disorders of lipid metabolism (2 sources) Hyperlipidemia; Translations: [Hyperlipidemia, unspecified] 03-02-2006 Chronic Fluid and electrolyte disorders (6 sources) Hypo-osmolality and hyponatremia; Translations: [Hyponatremia] Episodic Hyperplasia of prostate (16 sources) Benign prostatic hyperplasia; Translations: [Benign prostatic hyperplasia without lower urinary tract symptoms] Onset: 01-11-2013 Chronic Immunizations and screening for infectious disease (1 source) Encounter for immunization Episodic Influenza (1 source) Influenza due to other identified influenza virus with other respiratory manifestations Episodic Osteoarthritis (3 sources) Degenerative joint disease involving multiple joints; Translations: [Polyosteoarthritis, unspecified] Onset: 09-12-2012 09-12-2012 Chronic Other aftercare (14 sources) Long-term current use of anticoagulant; Translations: [FDC (current) use of anticoagulants] Episodic Other aftercare (3 sources) long term care phlebotomist (current) use of anticoagulants Episodic Other connective tissue disease (1 source) Triggering of digit 02-02-2024 Episodic Other ear and sense organ disorders (14 sources) Hearing loss; Translations: [Unspecified hearing loss, unspecified ear] Chronic Other ear and sense organ disorders (1 source) Unspecified hearing loss, unspecified ear Chronic Other male genital disorders (1 source) Impotence 02-02-2024 Chronic Other nervous system disorders (2 sources) Carpal tunnel syndrome; Translations: [Carpal tunnel syndrome, unspecified upper limb] Onset: 08-23-2007 03-06-2008 Chronic Other nervous system disorders (1 source) Neuropathy; Translations: [Polyneuropathy, unspecified] Onset: 03-25-2010 03-25-2010 Chronic Other screening for suspected conditions (not mental disorders or infectious disease) (1 source) Encounter for screening for malignant neoplasm of prostate Episodic Peripheral and visceral atherosclerosis (2 sources) Arteriosclerotic vascular disease 12-01-2023 Chronic Spondylosis; intervertebral disc disorders; other back problems (1 source) Intervertebral disc disorder of cervical region with myelopathy; Translations: [Cervical disc disorder with myelopathy, unspecified cervical region] Onset: 2011 11-09-2021 Chronic Syncope (1 source) Syncope and collapse Episodic Thyroid disorders (16 sources) Hypothyroidism; Translations: [Hypothyroidism, unspecified] Chronic Unclassified (1 source) Encounter for screening for malignant neoplasm of prostate; Translations: [Encounter for screening for malignant neoplasm of prostate] Onset: 11-02-2023 Unclassified (1 source) long term care phlebotomist (current) use of anticoagulants; Translations: [long term care phlebotomist (current) use of anticoagulants] Onset: 06-16-2023 Results Test Name Value Interpretation Reference Range Facility Ambulatory Visit Summaryon 0 03-08-2024 Ambulatory Visit Summary [facility] Solitario :1940 Visit Date:03/08/2024 Ambulatory Visit Instructions Your Diagnosis Trigger finger DM type 2 causing vascular disease Afib Body mass index (BMI) of 25.0-25.9 in adult Hyponatremia Your Care Team Attending Physician - Kylah Garcia MD Primary Care Physician - Kylah Garcia MD This Is Your Medications List Turmeric (Turmeric 500 mg oral capsule) atenolol (atenolol 25 mg Tab) cholecalciferol (Vitamin D3 5000 intl units (125 mcg) oral tab) cyanocobalamin (Vitamin B12) finasteride (finasteride 5 mg Tab) gabapentin (gabapentin 300 mg Cap) glimepiride (glimepiride 2 mg Tab) levothyroxine (levothyroxine 25 mcg (0.025 mg) Tab) omeprazole (omeprazole 40 mg Cap-) pravastatin (pravastatin 40 mg Tab) sildenafil (sildenafil 100 mg Tab) sodium chloride (Sodium Chloride 1 g oral tablet) tamsulosin (tamsulosin 0.4 mg Cap) ubiquinone (CoQ10) warfarin (Jantoven 5 mg oral tablet) Procedures Performed Carpal tunnel release, Surgery. Discharge Vitals Temperature (Temporal Artery) 36.5 ?C Heart Rate (Peripheral) 68 Respiratory Rate 16 Blood Pressure 122/78 Height 180.5 cm Height 71 in Weight 82.8 kg Weight 182.16 lb BMI 25.41 What to do next Scheduled Follow-Up Appointments Tuesday 1:45 PM EDT With: Where: [facility] Tuesday 9:00 AM EDT With: Where: [facility] Invalid Interpretation Code [address] [place] [address]- \.br \ 2023 9:00 AM EDT \.br\ With: Adam COHN, Kylah Cole\.br\ Where: [facility] Medicine Office/Clini c Noteon 03-08-2024 Family Medicine Office/Clinic Note HPI Staff Dariel is an 83 year old male presenting for surgical clearance Needs clearance and hold coumadin in writing and faxed to Dr Hernández at [phone] Note: he would really benefit for chronic care management if he qualifies ( he walks in here at least once a week with questions Date of surgery: March 26, 2024 Surgeon: Dr Hernández [place] [facility] [place] of Surgery: rt little finger trigger release Pre testing: scheduled 03/06/24 all results here questions/concerns: left hand/wrist carpal tunnel feels it's worsened, right one had surgery years ago and took away the numbness now left wrist, the numbness and tingling going up the arm, wants to get this taken care of after his finger surgery History of Present Illness - Here for Clearance for surgery - NO CP - NO SOB - Ambulates without issues. - Labs look good. Review of Systems PHQ Score Initial Depression Screen Score: 0 SCORE Physical Exam Vitals & Measurements T: 36.5 ?C(Temporal Artery) HR: 68(Peripheral) RR: 16 BP: 122/78 SpO2: 98% HT: 71 in HT: 180.5 cm WT: 82.8 kg WT: 182.16 lb BMI: 25.41 General: alert, no acute distress ENMT: oral mucosa moist, Cardiovascular: irregular rate and rhythm, normal peripheral perfusion Respiratory: Lungs CTA, respirations non labored Extremities: no deformity, no trauma Neurological: oriented x 4, LOC appropriate for age, CN II-XII intact, motor strength equal & normal bilaterally, speech normal Abdomen: Soft, Nontender, Non-distended, + BS R 5th digit is contracted Scaling of the scalp noted with abnormal SKs. Assessment/Plan 1. Trigger finger (M65.30: Trigger finger, unspecified finger) - Medically optimized for surgery. - Hold coumadin for 7 days. - Dm meds days of. - go back and work with coumadin clinic to monitor after surgery 2. 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 Afib (I48.91: Unspecified atrial fibrillation) - In afib. - As per number one 4. Body mass index (BMI) of 25.0-25.9 in adult (Z68.25: Body mass index [BMI] 25.0-25.9, adult) - Stable - BMI education uploaded 5. Hyponatremia (E87.1: Hypo-osmolality and hyponatremia) - Corrected 6. Encounter for surveillance of abnormal nevi (Z13.89: Encounter for screening for other disorder) - Will send to Derm. [place] [facility] [place] Ambulatory Referral Follow-up No qualifying data available Patient Education BMI for Adults Problem List/Past Medical History Ongoing Afib ASCVD (arteriosclerotic cardiovascular disease) Body mass index (BMI) of 25.0-25.9 in adult Carpal tunnel syndrome, left DM type 2 causing vascular disease ED (erectile dysfunction) Encounter for surveillance of abnormal nevi Hyperlipidemia Hyponatremia Osteoarthritis Trigger finger Historical No qualifying data Procedure/Surgical History Carpal tunnel release, Surgery. Medications atenolol 25 mg Tab, 25 mg= 1 tab(s), Oral, Daily CoQ10 finasteride 5 mg Tab, 5 mg= 1 tab(s), Oral, Daily gabapentin 300 mg Cap, 300 mg= 1 cap(s), Oral, Daily glimepiride 2 mg Tab, 2 mg= 1 tab(s), Oral, Daily, 1 refills Jantoven 5 mg oral tablet, 5 mg= 1 tab(s), Oral, Daily levothyroxine 25 mcg (0.025 mg) Tab, 25 mcg= 1 tab(s), Oral, Daily, 1 refills, Pre-arrival medication omeprazole 40 mg Cap-DR, 40 mg= 1 cap(s), Oral, Daily pravastatin 40 mg Tab, 40 mg= 1 tab(s), Oral, Daily sildenafil 100 mg Tab, 100 mg= 1 tab(s), Oral, Daily, PRN Sodium Chloride 1 g oral tablet, See Instructions, 2 refills tamsulosin 0.4 mg Cap, 0.4 mg= 1 cap(s), Oral, Daily Turmeric 500 mg oral capsule Vitamin B12 Vitamin D3 5000 intl units (125 mcg) oral tab, 125 mcg= 1 tab(s), Oral, Daily Allergies No Known Medication Allergies Social History Alcohol Current, 1-2 times per month, 03/06/2024 Substance Abuse - Denies Substance Abuse, 03/06/2024 Tobacco Never (less than 100 in lifetime) Tobacco Use:. Never Smokeless Tobacco Use:., 03/08/2024 Immunizations Vaccine Date Status pneumococcal 20-valent conjugate vaccine 09/21/2023 Recorded influenza virus vaccine, inactivated 08/19/2023 Recorded pneumococcal 13-valent vaccine 03/31/2015 Recorded influenza virus vaccine, inactivated 08/02/2014 Recorded Normal [facility] Comment on above: Result Comment: Elec tronically Signed By: Adam COHN, Kylah Lopez.br\Date and Time Signed: 03/08/24 13:31 EDT Patient Educationon 03-08-20 Patient Education Nutrition BMI for Adults What is BMI? Body mass index (BMI) is a number that is calculated from a person's weight and height. BMI can help estimate how much of a person's weight is composed of fat. BMI does not measure body fat directly. Rather, it is an alternative to procedures that directly measure body fat, which can be difficult and expensive. BMI can help identify people who may be at higher risk for certain medical problems. What are BMI measurements used for? BMI is used as a screening tool to identify possible weight problems. It helps determine whether a person is obese, overweight, a healthy weight, or underweight. BMI is useful for: ? Identifying a weight problem that may be related to a medical condition or may increase the risk for medical problems. ? Promoting changes, such as changes in diet and exercise, to help reach a healthy weight. BMI screening can be repeated to see if these changes are working. How is BMI calculated? BMI involves measuring your weight in relation to your height. Both height and weight are measured, and the BMI is calculated from those numbers. This can be done either in [place]ian ([place] or metric measurements. Note that charts and online BMI calculators are available to help you find your BMI quickly and easily without having to do these calculations yourself. To calculate your BMI in [place]ian ([place] measurements: 1. Measure your weight in pounds (lb). 2. Multiply the number of pounds by 703. ? For example, for a person who weighs 180 lb, multiply that number by 703, which equals 126,540. 3. Measure your height in inches. Then multiply that number by itself to get a measurement called inches squared. ? For example, for a person who is 70 inches tall, the inches squared measurement is 70 inches x 70 inches, which equals 4,900 inches squared. 4. Divide the total from step 2 (number of lb x 703) by the total from step 3 (inches squared): 126,540 ? 4,900 = 25.8. This is your BMI. To calculate your BMI in metric measurements: 1. Measure your weight in kilograms (kg). 2. Measure your height in meters (m). Then multiply that number by itself to get a measurement called meters squared. ? For example, for a person who is 1.75 m tall, the meters squared measurement is 1.75 m x 1.75 m, which is equal to 3.1 meters squared. 3. Divide the number of kilograms (your weight) by the meters squared number. In this example: 70 ? 3.1 = 22.6. This is your BMI. What do the results mean? BMI charts are used to identify whether you are underweight, normal weight, overweight, or obese. The following guidelines will be used: ? Underweight: BMI less than 18.5. ? Normal weight: BMI between 18.5 and 24.9. ? Overweight: BMI between 25 and 29.9. ? Obese: BMI of 30 or above. Keep these notes in mind: ? Weight includes both fat and muscle, so someone with a muscular build, such as an athlete, may have a BMI that is higher than 24.9. In cases like these, BMI is not an accurate measure of body fat. ? To determine if excess body fat is the cause of a BMI of 25 or higher, further assessments may need to be done by a health care provider. ? BMI is usually interpreted in the same way for men and women. Where to find more information For more information about BMI, including tools to quickly calculate your BMI, go to these websites: ? Centers for Disease Control and Prevention: www.cdc.gov ? [place] [employer]: www.heart.org ? National Heart, Lung, and Blood [place]: www.nhlbi.nih.gov Summary ? Body mass index (BMI) is a number that is calculated from a person's weight and height. ? BMI may help estimate how much of a person's weight is composed of fat. BMI can help identify those who may be at higher risk for certain medical problems. ? BMI can be measured using Georgian measurements or metric measurements. ? BMI charts are used to identify whether you are underweight, normal weight, overweight, or obese. This information is not intended to replace advice given to you by your health care provider. Make sure you discuss any questions you have with your health care provider. Document Revised: 07/23/2020 Document Reviewed: 05/30/2020 [employer] Patient Education ? 2022 [employer]. [facility] Physician Referralon 03-08-2 024 Physician Referral [id number] [facility] XR Chest 2 Viewson XR Chest 2 Views Exam Date/Time: 03/06/2024 08:58 EDT Reason for Exam: P.A.T. Report IMPRESSION: NO EVIDENCE OF ACTIVE CHEST DISEASE. CLINICAL HISTORY: P.A.T.. COMMENT: The heart is normal in size. The mediastinum is unremarkable. The lungs appear hyperinflated. No infiltration nor pleural effusion is evident. There are hypertrophic degenerative changes of both shoulders. There is metallic surgical hardware associated with the spine at the cervicothoracic junction. Ordering Provider: Chau Cardona FINAL REPORT Dictated: 03/07/2024 7:26 am Vinicius Medina M.D. Signed (Electronic Signature): 03/07/2024 7:26 am Signed by: Vinicius Medina M.D. Transcribed by: FRANCESCO Technologist: CHRISTIE Technical Comments Radiation Dose: Ka,r in mGy = na DAP = na Normal [facility] BMPon 03-06-2024 Anion gap [Moles/Vol] 10 mmol/L Normal 6-16 [facility] Comment on above: Performed By: #### 2 [id number], [id number], [id number] ####[facility] [address] [place] [address] Calcium [Mass/Vol] 9.1 mg/dL Normal 8.9-11.[address] [facility] Comment on above: Performed By: #### 2 419887, 8677795, [id number] ####[facility] [address] [place] [address] Chloride [Moles/Vol] 102 mmol/L Normal 101-111 [facility] Comment on above: Performed By: #### 2 746980, 2191117, [id number] ####[facility] [address] [place] [address] CO2 [Moles/Vol] 28 mmol/L Normal 21-31 [facility] Comment on above: Performed By: #### 2 833099, 9276207, [id number] ####[facility] [address] [place] [address] Creatinine [Mass/Vol] 1.0 mg/dL Normal 0.5-1.3 [facility] Comment on above: Performed By: #### 2 456192, 3168825, [id number] ####[facility] [address] [place] [address] Glucose [Mass/Vol] 98 mg/dL Normal 55-[address] [facility] Comment on above: Performed By: #### 2 172442, 7030300, 64244655 ####[facility] [address] [place] [address] Potassium [Moles/Vol] 4.3 mmol/L Normal 3.5-5.3 [facility] Comment on above: Performed By: #### 2 850542, 7450009, [id number] ####[facility] [address] [place] [address] Sodium [Moles/Vol] 136 mmol/L Normal 135-[address] [facility] Comment on above: Performed By: #### 2 078941, 2416076, 79374185 ####[address] [address] Urea nitrogen [Mass/Vol] 14 mg/dL Normal 5-[address] [facility] Comment on above: Performed By: #### 2 768946, 6963022, [id number] ####[facility] [address] [place] [address] Urea nitrogen/Creatinine [Mass ratio] 14 No Units Normal 10-[address] [facility] Comment on above: Performed By: #### 2 062949, 7332480, [id number] ####[facility] [address] [place] [address] CBC w/ Auto Diffon 4 Basophils/100 WBC (Bld) 1.0 % Normal 0.0-2.[address] [facility] Comment on above: Performed By: #### 2 754733, 6376544, 55118515 ####[facility] [address] [place] [address] Basophils/Leukocytes Auto (Bld) [Pure # fraction] 0.0 E9/L Normal 0.0-0.[address] [facility] Comment on above: Performed By: #### 2 207173, 3764346, 79772730 ####[address] [address] Eosinophils (Bld) [#/Vol] 0.2 E9/L Normal 0.0-0.[address] [facility] Comment on above: Performed By: #### 2 117866, 5808548, 94861913 ####[address] [address] Eosinophils/100 WBC (Bld) 3.9 % Normal 0.0-8.[address] [facility] Comment on above: Performed By: #### 2 740139, 9670892, 60193015 ####[address] [address] Erythrocyte distribution width (RBC) [Ratio] 14.0 % Normal 10.9-14.[address] [facility] Comment on above: Performed By: #### 2 528234, 1749293, 35474569 ####[address] [address] Hematocrit (Bld) [Volume fraction] 39.1 % Normal 37.7-49.[address] [facility] Comment on above: Performed By: #### 2 384195, 3829932, 88139362 ####[address] [address] Hemoglobin (Bld) [Mass/Vol] 13.0 g/dL Low 13.5-17.[address] [facility] Comment on above: Performed By: #### 2 117689, 6516155, 77692044 ####[address] [address] Lymphocytes (Bld) [#/Vol] 1.4 E9/L Normal 1.0-4.[address] [facility] Comment on above: Performed By: #### 2 802227, 5339092, 23092950 ####[address] [address] Lymphocytes/100 WBC (Bld) 31.0 % Normal 14.0-50.[address] [facility] Comment on above: Performed By: #### 2 233102, 9177591, 02251843 ####[address] [address] MCH (RBC) [Entitic mass] 30.3 pg Normal 27.0-34.[address] [facility] Comment on above: Performed By: #### 2 061406, 4589745, 76350656 ####[address] [address] MCHC (RBC) [Mass/Vol] 33.3 g/dL Normal 31.4-36.0 [facility] Comment on above: Performed By: #### 2 473005, 5723813, 49466745 ####[address] [address] MCV (RBC) [Entitic vol] 91.2 fL Normal 80.0-100.[address] [facility] Comment on above: Performed By: #### 2 673436, 6159280, 02626042 ####[address] [address] Monocytes (Bld) [#/Vol] 0.4 E9/L Normal 0.2-1.[address] [facility] Comment on above: Performed By: #### 2 020407, 8439547, 38079568 ####[address] [address] Neutrophils (Bld) [#/Vol] 2.5 E9/L Normal 2.0-7.[address] [facility] Comment on above: Performed By: #### 2 944486, 6765405, 36534827 ####[address] [address] Neutrophils/100 WBC (Bld) 55.3 % Normal 36.0-75.[address] [facility] Comment on above: Performed By: #### 2 636413, 9137439, 13489622 ####[facility] [address] [place] [address] Platelet 157.0 E9/L Normal 150.0-500.[address] [facility] Comment on above: Performed By: #### 2 750294, 8583854, 64828791 ####[facility] [address] [place] [address] Platelet mean volume (Bld) [Entitic vol] 9.7 fL Normal 6.4-10.[address] [facility] Comment on above: Performed By: #### 2 076223, 9931389, 62610570 ####[address] [place] [address] RBC (Bld) [#/Vol] 4.3 E12/L Normal 4.3-5.[address] [facility] Comment on above: Performed By: #### 2 811724, 5159296, 86091777 ####[facility] [address] [place] [address] WBC corrected for nucl RBC Auto (Bld) [#/Vol] 4.6 E9/L Normal 4.0-11.[address] [facility] Comment on above: Performed By: #### 2 086776, 1435411, 75449649 ####[facility] [address] [place] [address] CHEMISTRYOrdered By: SYSTEM SYSTEM on 03-06-2024 Anion gap [Moles/Vol] 10 mmol/L Normal 6 - 16 mEq/L R emisol Chem Calcium [Mass/Vol] 9.1 mg/dL Normal 8.9 - 11. 1 mg/dL [facility] Chloride [Moles/Vol] 102 mmol/L Normal 101 - 1 11 mmol/L [facility] CO2 [Moles/Vol] 28 mmol/L Normal 21 - 31 mmol/L [facility] Creatinine [Mass/Vol] 1.0 mg/dL Normal 0.5 - 1.3 mg/dL [facility] eGFR 75 mL/min/1.73 m2 Normal >=59mL/min /1 .73 m2 [facility] Glucose [Mass/Vol] 98 mg/dL Normal 55 - 199 mg/dL [facility] Potassium [Moles/Vol] 4.3 mmol/L Normal 3.5 - 5.3 mmol/L [facility] Sodium [Moles/Vol] 136 mmol/L Normal 135 - 145 mmol/L [facility] Urea nitrogen [Mass/Vol] 14 mg/dL Normal 5 - 21 mg/dL [facility] Urea nitrogen/Creatinine [Mass ratio] 14 mg/mg Normal 10 - 20 [facility] Consent for Treatmenton 02-13 Consent for Treatment [id number] #1.00TIFF Normal [facility] HEMATOLOGYOrdered By: SYSTEM SYSTEM on 03-06-2024 Basophils/100 WBC (Bld) 1.0 % Normal 0.0 - 2.0 % Remisol Heme Basophils/Leukocytes Auto (Bld) [Pure # fraction] 0.0 E9/L Normal 0.0 - 0.2 E9/L [facility]e Eosinophils (Bld) [#/Vol] 0.2 E9/L Normal 0.0 - 0.5 E9/L [facility]e Eosinophils/100 WBC (Bld) 3.9 % Normal 0.0 - 8.0 % Rem[facility]e Erythrocyte distribution width (RBC) [Ratio] 14.0 % Normal 10.9 - 14.2 % [facility] Hematocrit (Bld) [Volume fraction] 39.1 % Normal 37.7 - 49.0 % Rem[facility]e Hemoglobin (Bld) [Mass/Vol] 13.0 g/dL Low 13.5 - 17.5 gm/dL Rem[facility]e Lymphocytes (Bld) [#/Vol] 1.4 E9/L Normal 1.0 - 4.0 E9/L Rem[facility] Heme Lymphocytes/100 WBC (Bld) 31.0 % Normal 14.0 - 50.0 % Remisol Heme MCH (RBC) [Entitic mass] 30.3 pg Normal 27.0 - 34.0 pg Remisol Heme MCHC (RBC) [Mass/Vol] 33.3 g/dL Normal 31.4 - 36.0 gm/dL Rem[facility]e MCV (RBC) [Entitic vol] 91.2 fL Normal 80.0 - 100.0 fL [facility]e Monocytes (Bld) [#/Vol] 0.4 E9/L Normal 0.2 - 1.0 E9/L Rem[facility]e Monocytes/100 WBC (Bld) 8.8 % Normal 4.0 - 14.0 % Rem[facility] Heme Neutrophils (Bld) [#/Vol] 2.5 E9/L Normal 2.0 - 7.5 E9/L Rem[facility]e Neutrophils/100 WBC (Bld) 55.3 % Normal 36.0 - 75.0 % [facility]e Platelet 157.0 E9/L Normal 150.0 - 500.0 E9/L [facility]e Platelet mean volume (Bld) [Entitic vol] 9.7 fL Normal 6.4 - 10.8 fL Rem[facility]e RBC (Bld) [#/Vol] 4.3 E12/L Normal 4.3 - 5.9 E12/L [facility]e WBC corrected for nucl RBC Auto (Bld) [#/Vol] 4.6 E9/L Normal 4.0 - 11.0 E9/L [facility]e eGFRon 03-06-2024 eGFR 75 mL/min/1.73 m2 Normal >=[address] [facility] Comment on above: Order Comment: Order added by Discern Expert. Performed By: #### 2 717609, 6982687, [id number] ####[facility] [address] [place] [address] Consultation Noteon 03-01-20 Consultation Note [id number] #1.00TIFF Normal [facility] Lab Reportson 02-27-2024 Lab Reports [id number] #1.00TIFF Normal [facility] Family Medicine Office/Clini c Noteon 02-07-2024 Family Medicine Office/Clinic Note HPI Staff Dariel is an 83 year old male presenting for 2 month follow up DM Needs refills of levothyroxine and glimiperide to [facility] Do you have any of the following symptoms? Foot Exam: none Eye Exam: due Last A1C: Hgb A1C %: 5.6 % (12/01/23 14:31:00) Statin: pravastatin 40mg questions/concerns: saw kidney specialist (Rashad) about 3 weeks ago ( no report in file) was told to stop the omeprazole and meloxicam and cut salt tablets from tid to bid. Also says [facility] sent him a letter and said you wouldn't let him have the sildenafil and he'd like to know why he can't have it Says he can't sleep on his left side, whole arm/shoulder hurts and goes numb, told years and years ago needs carpal tunnel surgery on left, (right side was done) History of Present Illness Dariel Aguilera is an 83-year-old male who presents for medication refill. The patient needs a refill for sildenafil. He also reports numbness of his left hand and fingers, which is prohibiting him from sleeping on his left side. The patient saw his optometry doctor on 12/28/2023. His omeprazole and meloxicam were discontinued. His atenolol was decreased to 1 tablet a day. The patient is an occasional alcohol drinker. Review of Systems PHQ Score Initial Depression Screen Score: 0 SCORE Physical Exam Vitals & Measurements T: 36.7 ?C(Temporal Artery) HR: 60(Peripheral) RR: 16 BP: 118/70 SpO2: 98% HT: 70 in HT: 178.2 cm WT: 84.1 kg WT: 185.02 lb BMI: 26.48 General: alert, no acute distress ENMT: oral mucosa moist, no pharyngeal erythema or exudate Cardiovascular: regular rate and rhythm, normal peripheral perfusion Respiratory: Lungs CTA, respirations non labored Extremities: no deformity, no trauma Neurological: oriented x 4, LOC appropriate for age, CN II-XII intact, motor strength equal & normal bilaterally, speech normal Assessment/Plan 1. 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) The patient's last A1c was at goal at 5.6%. We will have the patient continue on the glimepiride. 2. ASCVD (arteriosclerotic cardiovascular disease) (I25.10: Atherosclerotic heart disease of burns paiute coronary artery without angina pectoris) He has no issues today. He has no chest pain. He will continue on the beta-chema and the pravastatin. 3. Afib (I48.91: Unspecified atrial fibrillation) The patient is not on any blood thinners at this time. We will monitor. 4. Hyponatremia (E87.1: Hypo-osmolality and hyponatremia) I will recheck at next visit. 5. Osteoarthritis (M19.90: Unspecified osteoarthritis, unspecified site) He has no issues today. 6. ED (erectile dysfunction) (N52.9: Male erectile dysfunction, unspecified) We will refill the sildenafil today. 7. BMI 26.0-26.9,adult (Z68.26: Body mass index [BMI] 26.0-26.9, adult) BMI education given. 8. Over weight (E66.3: Overweight) Diet and exercise were advised. 9. Nonsmoker (Z78.9: Other specified health status) He was advised to continue not to smoke. 10. Carpal tunnel syndrome, left (G56.02: Carpal tunnel syndrome, left upper limb) We will send to orthopedics for further evaluation. 11. Trigger finger (M65.30: Trigger finger, unspecified finger) We will send to orthopedics for injections. The patient will follow up in 3 months. Portions of this record may have been created with voice recognition artificial intelligence software, specifically [employer], Stunn and or ePub Direct. Substitutions may have occurred due to the inherent limitations of voice recognition and artificial intelligence software. ATTESTATION: Documentation services were performed after patient or guardian consented to allow [employer] to record this visit. MELISSA contracting support specialist and provider reviewed before signing. MELISSA: Danielle Sanchez. Follow-up No qualifying data available Problem List/Past Medical History Ongoing Afib ASCVD (arteriosclerotic cardiovascular disease) Carpal tunnel syndrome, left DM type 2 causing vascular disease ED (erectile dysfunction) Hyponatremia Osteoarthritis Trigger finger Historical No qualifying data Procedure/Surgical History Surgery. Medications atenolol 25 mg Tab, 25 mg= 1 tab(s), Oral, Daily finasteride 5 mg Tab, 5 mg= 1 tab(s), Oral, Daily gabapentin 300 mg Cap, 300 mg= 1 cap(s), Oral, Daily glimepiride 2 mg Tab, 2 mg= 1 tab(s), Oral, Daily levothyroxine 25 mcg (0.025 mg) Tab, 25 mcg= 1 tab(s), Oral, Daily pravastatin 40 mg Tab, 40 mg= 1 tab(s), Oral, Daily sildenafil 100 mg Tab, 100 mg= 1 tab(s), Oral, Daily, PRN Sodium Chloride 1 g oral tablet, See Instructions, 2 refills tamsulosin 0.4 mg Cap, 0.4 mg= 1 cap(s), Oral, Daily Vitamin D3 5000 intl units (125 mcg) oral tab, 125 mcg= 1 tab(s), Oral, Daily warfarin 5 mg Tab, See Instructions Allergies No Known Medication Allergies Social History Tobacco Never (less than 100 in life (more content not included)... Normal [facility] Comment on above: Result Comment: Elec tronically Signed By: Kylah Garcia MD\.br\Date and Time Signed: 02/07/24 12:44 EDT\.br\Electronically Co-Signed By: Allie Conway\.br\Date and Time Co-Signed: 02/02/24 11:43 EDT Ambulatory Visit Summaryon 0 02-02-2024 Ambulatory Visit Summary DARIEL AGUILERA :1940 Visit Date:02/02/2024 Ambulatory Visit Instructions Your Diagnosis DM type 2 causing vascular disease ASCVD (arteriosclerotic cardiovascular disease) Afib Hyponatremia Osteoarthritis ED (erectile dysfunction) BMI 26.0-26.9,adult Over weight Nonsmoker Carpal tunnel syndrome, left Trigger finger Your Care Team Attending Physician - Kylah Garcia MD Primary Care Physician - Kylah Garcia MD This Is Your Medications List atenolol (atenolol 25 mg Tab) cholecalciferol (Vitamin D3 5000 intl units (125 mcg) oral tab) finasteride (finasteride 5 mg Tab) gabapentin (gabapentin 300 mg Cap) glimepiride (glimepiride 2 mg Tab) levothyroxine (levothyroxine 25 mcg (0.025 mg) Tab) pravastatin (pravastatin 40 mg Tab) sildenafil (sildenafil 100 mg Tab) sodium chloride (Sodium Chloride 1 g oral tablet) tamsulosin (tamsulosin 0.4 mg Cap) warfarin (warfarin 5 mg Tab) Procedures Performed Surgery. Discharge Vitals Temperature (Temporal Artery) 36.7 ?C Heart Rate (Peripheral) 60 Respiratory Rate 16 Blood Pressure 118/70 Height 178.2 cm Height 70 in Weight 84.1 kg Weight 185.02 lb BMI 26.48 What to do next Scheduled Follow-Up Appointments Tuesday 9:00 AM EDT With: Where: [facility] Invalid Interpretation Code [address] [place] [address]- \.br \ 2023 9:00 AM EDT \.br\ With: Adam COHN, Kylah Cole\.br\ Where: [facility] Physician Referralon 024 Physician Referral [id number]# 1.00TIFF Normal [facility] Lab Reportson 01-05-2024 Lab Reports [id number] #1.00TIFF Normal [facility] Transfer Inon 12-08-2023 Transfer In [id number] #1.00TIFF Normal [facility] Auth for Release of Medical Recordson 12-06-2023 Auth for Release of Medical Records [id number]# 1.00TIFF Normal [facility] Family Medicine Office/Clini c Noteon 12-02-2023 Family Medicine Office/Clinic Note HPI Staff Dariel is an 83 year old male presenting to establish care Establish Care: History: a fib, DM type II, neuropathy ( hands and feet) , arthritis Any previous diagnosis: History of seeing any specialist: supposed to see a kidney dr ( dec 28) for low sodium When was your last doctors visit: few weeks ago Last provider: Jada Rene ( she's leaving) Any recent labs: none recent Health Maintenance UTD: Colonoscopy: been quite a few years ago, he's aged out now PSA: has had one unsure of date and never got results flu: UTD 08/19/23 Acute: would like a refil of meloxicam 90 day refill Current issues/complaints: will be getting his PT/INR tomorrow and will you follow his warfarin for him? uses triamcinolone acetonide 0.1% 2 times a day History of Present Illness Dariel Aguilera is an 83-year-old male who presents today to establish care. He is accompanied by his . The patient received a mail 2 days ago, that on 11/12/2023, Dr. Jada Rene will no longer be in his network. He was provided a card with the name of another provider. He has a known medical history of atrial fibrillation and is on a regimen of Coumadin. His INR levels are monitored monthly, and he reports that his last reading was slightly elevated on the 2, though it did not exceed 3. His previous provider checked his Coumadin levels once a month. He has been experiencing issues related to his sodium levels. He drinks 1 to 2 glasses of rum and diet Coke every 2 weeks. He will sign a release form for his records from Dr. Jada Rene. Prior to [facility], he worked at a [employer] shop for 4 days a week. 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 He and his family relocated from [place] to [place] 7 months ago, but they originally grew up in [place]. Review of Systems PHQ Score Initial Depression Screen Score: 0 SCORE Physical Exam Vitals & Measurements T: 36.5 ?C(Temporal Artery) HR: 60(Peripheral) RR: 14 BP: 122/78 SpO2: 99% HT: 70 in HT: 178.2 cm WT: 85.5 kg WT: 188.1 lb BMI: 26.92 General: alert, no acute distress Cardiovascular: atrial fibrillation Respiratory: Lungs CTA, respirations non labored Extremities: no deformity, no trauma Neurological: oriented x 4, LOC appropriate for age, CN II-XII intact, motor strength equal & normal bilaterally, speech normal Assessment/Plan 1. 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) We will do an HbA1c today. He will continue taking his medication as before. We will refill his medication as needed. 2. ASCVD (arteriosclerotic cardiovascular disease) (I25.10: Atherosclerotic heart disease of burns paiute coronary artery without angina pectoris) He will continue statin and blood thinners. 3. Hyponatremia (E87.1: Hypo-osmolality and hyponatremia) We will get his records and do labs today to check for his sodium levels. The patient is recommended to follow up with nephrology. 4. Osteoarthritis (M19.90: Unspecified osteoarthritis, unspecified site) We will be refilling his meloxicam but will discontinue the medication if his GFR decreases and will be needing attention. 5. Afib (I48.91: Unspecified atrial fibrillation) He is recommended to continue Coumadin and we will check his INR today. 6. BMI 26.0-26.9,adult (Z68.26: Body mass index [BMI] 26.0-26.9, adult) BMI education given. 7. Over weight (E66.3: Overweight) Diet and exercise were advised. 8. Nonsmoker (Z78.9: Other specified health status) Diet and exercise were advised. We will see the patient back in 2 months. Portions of this record may have been created with voice recognition artificial intelligence software, specifically [employer]Ch[employer]Daily, Stunn and or ePub Direct. Substitutions may have occurred due to the inherent limitations of voice recognition and artificial intelligence software. Documentation services were performed after patient or guardian consented to allow [employer] to record this visit. MELISSA contracting support specialist and provider reviewed before signing. MELISSA: Allie Conway Follow-up No qualifying data available Problem List/Past Medical History Ongoing Afib ASCVD (arteriosclerotic cardiovascular disease) DM type 2 causing vascular disease Hyponatremia Osteoarthritis Historical No qualifying data Procedure/Surgical History Surgery. Medications atenolol 25 mg Tab, 25 mg= 1 tab(s), Oral, Daily finasteride 5 mg Tab, 5 mg= 1 tab(s), Oral, Daily gabapentin 300 mg Cap, 300 mg= 1 cap(s), Oral, Daily glimepiride 2 mg Tab, 2 mg= 1 tab(s), Oral, Daily levothyroxine 25 mcg (0.025 mg) Tab, 25 mcg= 1 tab(s), Oral, Daily meloxicam 15 mg Tab, 15 mg= 1 tab(s), Oral, Daily omeprazole 40 mg Cap-DR, 40 mg= 1 cap(s), Oral, Daily pravastatin 40 mg Tab, 40 mg= 1 tab(s), Oral, Daily tamsulosin 0.4 mg Cap, 0.4 mg= 1 cap(s), Oral, Daily Vitamin D3 5000 intl units (125 mcg) oral tab, 125 mcg= 1 tab(s), Oral, Horace (more content not included)... Normal [facility] Comment on above: Result Comment: Elec tronically Signed By: Kylah Garcia MD\.br\Date and Time Signed: 12/02/23 08:22 EST\.br\Electronically Co-Signed By: Allie Conway\.br\Date and Time Co-Signed: 12/01/23 17:49 EST Lab Reportson 12-02-2023 Lab Reports [id number]# 1.00TIFF Normal 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 (arteriosclerotic cardiovascular disease) Hyponatremia Osteoarthritis Afib BMI 26.0-26.9,adult Over weight Nonsmoker Your Care Team Attending Physician - Kylah Garcia MD Primary Care Physician - Kylah Garcia MD This Is Your Medications List atenolol (atenolol 25 mg Tab) cholecalciferol (Vitamin D3 5000 intl units (125 mcg) oral tab) finasteride (finasteride 5 mg Tab) gabapentin (gabapentin 300 mg Cap) glimepiride (glimepiride 2 mg Tab) levothyroxine (levothyroxine 25 mcg (0.025 mg) Tab) meloxicam (meloxicam 15 mg Tab) omeprazole (omeprazole 40 mg Cap-DR) pravastatin (pravastatin 40 mg Tab) tamsulosin (tamsulosin 0.4 mg Cap) warfarin (warfarin 5 mg Tab) Procedures Performed Surgery. Discharge Vitals Temperature (Temporal Artery) 36.5 ?C Heart Rate (Peripheral) 60 Respiratory Rate 14 Blood Pressure 122/78 Height 178.2 cm Height 70 in Weight 85.5 kg Weight 188.1 lb BMI 26.92 Medications What How Much When Instructions Unchanged atenolol (atenolol 25 mg Tab) 1 Tablets By Mouth Every day Unchanged cholecalciferol (Vitamin D3 5000 intl units (125 mcg) oral tab) 1 Tablets By Mouth Every day Unchanged finasteride (finasteride 5 mg Tab) 1 Tablets By Mouth Every day Unchanged gabapentin (gabapentin 300 mg Cap) 1 Capsules By Mouth Every day Unchanged glimepiride (glimepiride 2 mg Tab) 1 Tablets By Mouth Every day Unchanged levothyroxine (levothyroxine 25 mcg (0.025 mg) Tab) 1 Tablets By Mouth Every day on an empty stomach Unchanged meloxicam (meloxicam 15 mg Tab) 1 Tablets By Mouth Every day as needed Unchanged omeprazole (omeprazole 40 mg Cap-DR) 1 Capsules By Mouth Every day 30 minutes before morning meal Unchanged pravastatin (pravastatin 40 mg Tab) 1 Tablets By Mouth Every day Unchanged tamsulosin (tamsulosin 0.4 mg Cap) 1 Capsules By Mouth Every day Unchanged warfarin (warfarin 5 mg Tab) See instructions 0.5 tab(s) orally every other day and 1 tab every other day Allergies No Known Medication Allergies Problems Ongoing - Any problem that you are currently receiving treatment for. Afib ASCVD (arteriosclerotic cardiovascular disease) DM type 2 causing vascular disease Hyponatremia Osteoarthritis Patient Survey You may receive a survey via text or e-mail asking about your office visit. Please share your experience with us by completing your survey. We appreciate your feedback and thank you for choosing us for your care. Normal [facility] CBC w/ Auto Diffon 4 NRBC Man 0 Normal 0-[address] [facility] Comment on above: Performed By: #### 2 564621, 2137824, 97704049, 9018289, 658416401 ####[facility] [address] [place] [address] Basophil Absolute 0.0 E9/L Normal 0.0-0.[address] [facility] Comment on above: Performed By: #### 2 454396, 2107477, 94890303, 7039644, 321054384 ####[facility] [address] [place] [address] Basophils/100 WBC (Bld) 0.4 % Normal 0.0-2.[address] [facility] Comment on above: Performed By: #### 2 359574, 5709477, 89665438, 8991424, 715521141 ####[address] [place] [address] Eos Absolute 0.2 E9/L Normal 0.0-0.[address] [facility] Comment on above: Performed By: #### 2 437236, 7816946, 43507119, 2379849, 420416384 ####[address] [address] Eosinophils/100 WBC (Bld) 2.9 % Normal 0.0-8.[address] [facility] Comment on above: Performed By: #### 2 698809, 5937046, 36286224, 4388031, 058618130 ####[address] [address] Erythrocyte distribution width (RBC) [Ratio] 14.0 % Normal 10.9-14.[address] [facility] Comment on above: Performed By: #### 2 057831, 1297109, 29575640, 5742761, 027673777 ####[address] [address] Hematocrit (Bld) [Volume fraction] 37.0 % Low 37.7-49.[address] [facility] Comment on above: Performed By: #### 2 577107, 0947439, 28176817, 8599724, 948456378 ####[address] [address] Hemoglobin (Bld) [Mass/Vol] 12.1 g/dL Low 13.5-17.[address] [facility] Comment on above: Performed By: #### 2 753481, 0334058, 94322649, 5923192, 098853422 ####[address] [address] Lymph Absolute 1.8 E9/L Normal 1.0-4.0 [facility] Comment on above: Performed By: #### 2 038486, 5315956, 10452661, 4391101, 540707378 ####[address] [address] Lymphocytes/100 WBC (Bld) 29.3 % Normal 14.0-50.[address] [facility] Comment on above: Performed By: #### 2 312155, 9620726, 61319273, 3535098, 891881172 ####[address] [address] MCH (RBC) [Entitic mass] 30.8 pg Normal 27.0-34.[address] [facility] Comment on above: Performed By: #### 2 327849, 6254626, 76889545, 3106887, 646286402 ####[address] [address] MCHC (RBC) [Mass/Vol] 32.8 g/dL Normal 31.4-36.0 [facility] Comment on above: Performed By: #### 2 148028, 0594083, 07231041, 4034846, 359747087 ####[address] [address] MCV (RBC) [Entitic vol] 93.8 fL Normal 80.0-100.[address] [facility] Comment on above: Performed By: #### 2 175358, 1928540, 86667141, 6152433, 412095718 ####[address] [address] Hardin Absolute 0.5 E9/L Normal 0.2-1.0 [facility] Comment on above: Performed By: #### 2 969310, 2264600, 05679192, 6949150, 963314588 ####[address] [address] Monocytes/100 WBC (Bld) 7.9 % Normal 4.0-14.[address] [facility] Comment on above: Performed By: #### 2 624034, 5999803, 79529493, 9351682, 209533442 ####[address] [place] [address] Neutro Absolute 3.6 E9/L Normal 2.0-7.5 [facility] Comment on above: Performed By: #### 2 015826, 3036030, 65972229, 1325561, 455819887 ####[facility] [address] [place] [address] Neutro Auto 59.5 % Normal 36.0-75.[address] [facility] Comment on above: Performed By: #### 2 812735, 2672873, 63111558, 6879391, 804025898 ####[facility] [address] [place] [address] Platelet 198.0 E9/L Normal 150.0-500.[address] [facility] Comment on above: Performed By: #### 2 036453, 1603921, 35302005, 2215756, 284420530 ####[facility] [address] [place] [address] Platelet mean volume (Bld) [Entitic vol] 9.5 fL Normal 6.4-10.[address] [facility] Comment on above: Performed By: #### 2 247453, 0070774, 85255975, 6167862, 844649417 ####[facility] [address] [place] [address] RBC 3.9 E12/L Low 4.3-5.[address] [facility] Comment on above: Performed By: #### 2 332670, 7072893, 54793446, 0952193, 077332445 ####[facility] [address] [place] [address] WBC 6.0 E9/L Normal 4.0-11.[address] [facility] Comment on above: Performed By: #### 2 344355, 4852863, 46266810, 6723676, 614879405 ####[facility] [address] [place] [address] CHEMISTRYOrdered By: Kate Sotomayor on 12-01-2023 U Creatinine 62.5 mg/dL Invalid Interpretation Code Remisol Chem U Prot/Creat Ratio NOT CALCULATED Invalid Interpretation Code 0.00 - 200.00 Rem[facility] Chem Ur Total Protein mg/dL Invalid Interpretation Code Remisol Chem CHEMISTRYOrdered By: SYSTEM SYSTEM on 12-01-2023 U Microalb microgram/mL Normal 0.0 - 19.0 mcg/mL [facility] Chem Albumin [Mass/Vol] 3.9 g/dL Normal 3.3 - 5.0 gm/dL [facility] Chem Albumin/Globulin [Mass ratio] 1.6 {ratio} Normal 1.1 - 2.2 [facility] Alk Phos 75 [iU]/d Normal 21 - 98 Int._Unit/L [facility] Chem ALT 12 [iU]/d Normal 6 - 46 Int._Unit/L [facility] Chem Anion gap [Moles/Vol] 9 mmol/L Normal 6 - 16 mEq/L R emisol Chem AST 20 [iU]/d Normal 5 - 43 Int._Unit/L [facility] Bili Total 0.9 mg/dL Normal 0.0 - 1.1 mg/dL [facility] Calcium [Mass/Vol] 8.7 mg/dL Low 8.9 - 11. 1 mg/dL [facility] Chloride [Moles/Vol] 104 mmol/L Normal 101 - 1 11 mmol/L [facility] Cholesterol [Mass/Vol] 156 mg/dL Normal 120 - 200 mg/dL [facility] Cholesterol in HDL [Mass/Vol] 51 mg/dL Invalid Interpretation Code [facility] Comment on above: Result Comment: '>= 60 LOW RISK' '<= 40 HIGH RISK' Cholesterol in LDL [Mass/Vol] 89 mg/dL Normal <=129mg/dL [facility] Chem Cholesterol in VLDL [Mass/Vol] 18 mg/dL Normal 7 - 40 mg/dL [facility] CO2 [Moles/Vol] 30 mmol/L Normal 21 - 31 mmol/L [facility] Creatinine [Mass/Vol] 1.1 mg/dL Normal 0.5 - 1.3 mg/dL [facility] Chem eGFR 67 mL/min/1.73 m2 Normal >=59mL/min /1 .73 m2 [facility] Globulin (S) [Mass/Vol] 2.5 g/dL Normal 1.4 - 4.0 gm/dL [facility] Glucose [Mass/Vol] 72 mg/dL Normal 55 - 199 mg/dL [facility] Potassium [Moles/Vol] 4.2 mmol/L Normal 3.5 - 5.3 mmol/L [facility] Protein [Mass/Vol] 6.4 g/dL Normal 6.0 - 7.8 gm/dL [facility] Sodium [Moles/Vol] 139 mmol/L Normal 135 - 145 mmol/L [facility] Triglyceride [Mass/Vol] 92 mg/dL Normal <=149mg/dL [facility] Urea nitrogen [Mass/Vol] 11 mg/dL Normal 5 - 21 mg/dL [facility] Urea nitrogen/Creatinine [Mass ratio] 10 mg/mg Normal 10 - 20 [facility] CHEMISTRYOrdered By: Zena pickett on 12-01-2023 HbA1c (Bld) [Mass fraction] 5.6 % Normal <=5.9% [facility] [place] ChemAutoSS CMPon 12-01-2023 Albumin [Mass/Vol] 3.9 g/dL Normal 3.3-5.[address] [facility] Comment on above: Performed By: #### 2 545668, 9376711, 20264540, 4423115, 193602307 ####[facility] [address] [place] [address] Albumin/Globulin [Mass ratio] 1.6 {ratio} Normal 1.1-2.[address] [facility] Comment on above: Performed By: #### 2 637284, 1897498, 05075827, 8858943, 227347688 ####[facility] [address] [place] [address] Alk Phos 75 Int._Unit/L Normal 21-98 [facility] Comment on above: Performed By: #### 2 310715, 8891905, 17227278, 4114107, 119211505 ####[facility] [address] [place] [address] ALT 12 Int._Unit/L Normal 6-46 [facility] Comment on above: Performed By: #### 2 371500, 3383059, 44187172, 0190501, 817902808 ####[facility] [address] [place] [address] Anion gap [Moles/Vol] 9 mmol/L Normal 6-16 [facility] Comment on above: Performed By: #### 2 626602, 5205969, 40108953, 1483398, 369404907 ####[facility] [address] [place] [address] AST 20 Int._Unit/L Normal 5-43 [facility] Comment on above: Performed By: #### 2 212866, 6527554, 50618117, 4671005, 399856928 ####[facility] [address] [place] [address] Bili Total 0.9 mg/dL Normal 0.0-1.[address] [facility] Comment on above: Performed By: #### 2 654839, 8159167, 27291776, 9056810, 620804106 ####[facility] [address] [place] [address] BUN/Creat Ratio 10 No Units Normal 10-20 [facility] Comment on above: Performed By: #### 2 373817, 6462953, 05675468, 0927203, 171870463 ####[facility] [address] [place] [address] Calcium [Mass/Vol] 8.7 mg/dL Low 8.9-11.[address] [facility] Comment on above: Performed By: #### 2 631073, 9534446, 36066053, 0425948, 389984314 ####[facility] [address] [place] [address] Chloride [Moles/Vol] 104 mmol/L Normal 101-111 [facility] Comment on above: Performed By: #### 2 055497, 0657810, 31204863, 0932717, 192224135 ####[facility] [address] [place] [address] CO2 [Moles/Vol] 30 mmol/L Normal 21-31 [facility] Comment on above: Performed By: #### 2 485121, 2876844, 52480872, 3435967, 027926910 ####[facility] [address] [place] [address] Creatinine [Mass/Vol] 1.1 mg/dL Normal 0.5-1.3 [facility] Comment on above: Performed By: #### 2 758724, 6251063, 87898757, 7370244, 133855079 ####[facility] [address] [place] [address] Globulin (S) [Mass/Vol] 2.5 g/dL Normal 1.4-4.[address] [facility] Comment on above: Performed By: #### 2 713574, 4177611, 16286538, 8538164, 697627372 ####[facility] [address] [place] [address] Glucose [Mass/Vol] 72 mg/dL Normal 55-[address] [facility] Comment on above: Performed By: #### 2 773764, 9238800, 45234896, 6601587, 064002222 ####[facility] [address] [place] [address] Potassium [Moles/Vol] 4.2 mmol/L Normal 3.5-5.3 [facility] Comment on above: Performed By: #### 2 595689, 7540051, 21551822, 0708375, 416203091 ####[facility] [address] [place] [address] Protein [Mass/Vol] 6.4 g/dL Normal 6.0-7.[address] [facility] Comment on above: Performed By: #### 2 641068, 4379327, 73375161, 8877114, 823378453 ####[facility] [address] [place] [address] Sodium [Moles/Vol] 139 mmol/L Normal 135-[address] [facility] Comment on above: Performed By: #### 2 575929, 4676814, 38848788, 9411983, 709878300 ####[facility] [address] [place] [address] Urea nitrogen [Mass/Vol] 11 mg/dL Normal 5-[address] [facility] Comment on above: Performed By: #### 2 239335, 9454605, 17784918, 3013718, 978931081 ####[facility] [address] [place] [address] HEMATOLOGYOrdered By: SYSTEM SYSTEM on 12-01-2023 Basophil Absolute 0.0 E9/L Normal 0.0 - 0.2 E9/L Remisol Heme Basophils/100 WBC (Bld) 0.4 % Normal 0.0 - 2.0 % [facility] Heme Eos Absolute 0.2 E9/L Normal 0.0 - 0.5 E9/L [facility] Heme Eosinophils/100 WBC (Bld) 2.9 % Normal 0.0 - 8.0 % [facility] Heme Erythrocyte distribution width (RBC) [Ratio] 14.0 % Normal 10.9 - 14.2 % [facility] Hematocrit (Bld) [Volume fraction] 37.0 % Low 37.7 - 49.0 % [facility] Heme Hemoglobin (Bld) [Mass/Vol] 12.1 g/dL Low 13.5 - 17.5 gm/dL [facility] Heme Lymph Absolute 1.8 E9/L Normal 1.0 - 4.0 E9/L [facility] Heme Lymphocytes/100 WBC (Bld) 29.3 % Normal 14.0 - 50.0 % Remisol Heme MCH (RBC) [Entitic mass] 30.8 pg Normal 27.0 - 34.0 pg Remisol Heme MCHC (RBC) [Mass/Vol] 32.8 g/dL Normal 31.4 - 36.0 gm/dL Rem[facility] Heme MCV (RBC) [Entitic vol] 93.8 fL Normal 80.0 - 100.0 fL Remisol Heme Hardin Absolute 0.5 E9/L Normal 0.2 - 1.0 E9/L [facility] Heme Monocytes/100 WBC (Bld) 7.9 % Normal 4.0 - 14.0 % [facility] Neutro Absolute 3.6 E9/L Normal 2.0 - 7.5 E9/L [facility] Heme Neutro Auto 59.5 % Normal 36.0 - 75.0 % [facility] Heme Platelet 198.0 E9/L Normal 150.0 - 500.0 E9/L Rem[facility] Heme Platelet mean volume (Bld) [Entitic vol] 9.5 fL Normal 6.4 - 10.8 fL Remisol Heme RBC 3.9 E12/L Low 4.3 - 5.9 E12/L [facility] Heme WBC 6.0 E9/L Normal 4.0 - 11.0 E9/L Rem[facility] Heme HEMATOLOGYOrdered By: Starr Tadeo on 12-01-2023 NRBC Man 0 1 Normal 0 - 0 Remisol Heme [id number] 12-01-2023 HbA1c (Bld) [Mass fraction] 5.6 % Normal <=5.[address] [facility] Comment on above: Performed By: #### 2 717943, 1077968, 43194346, 6067552, 950907912 ####[facility] [address] [place] [address] Lipid Panelon 12-01-2023 Cholesterol [Mass/Vol] 156 mg/dL Normal 120-[address] [facility] Comment on above: Performed By: #### 2 961124, 5352207, 11614291, 8078341, 777973282 ####[facility] [address] [place] [address] Cholesterol in HDL [Mass/Vol] 51 mg/dL Invalid Interpretation Code [facility] Comment on above: Result Comment: '>= 60 LOW RISK' '<= 40 HIGH RISK' Performed By: #### 2 762662, 4610060, 71560533, 7757170, 047456548 ####[facility] [address] [place] [address] Cholesterol in LDL [Mass/Vol] 89 mg/dL Normal <=[address] [facility] Comment on above: Performed By: #### 2 434869, 9686818, 21237198, 9900905, 024524598 ####[facility] [address] [place] [address] Cholesterol in VLDL [Mass/Vol] 18 mg/dL Normal 7-[address] [facility] Comment on above: Performed By: #### 2 224053, 0723297, 39046288, 2312490, 879354502 ####[facility] [address] [place] [address] Triglyceride [Mass/Vol] 92 mg/dL Normal <=[address] [facility] Comment on above: Performed By: #### 2 428714, 7149820, 41034669, 8786916, 850887132 ####[facility] [address] [place] [address] U Microalbon 12-01-2023 U Microalb <2.0 Normal 0.0-19.[address] [facility] Comment on above: Performed By: #### 1 [id number], 05946981 ####[address] [address] U Protein/Creat Ratioon 11-14 U Creatinine 62.5 mg/dL Invalid Interpretation Code [facility] Comment on above: Performed By: #### 1 [id number], 83358661 ####[facility] [address] [place] [address] U Prot/Creat Ratio NOT CALCULATED Invalid Interpretation Code .00-200.[address] [facility] Comment on above: Performed By: #### 1 [id number], 52528219 ####[facility] [address] [place] [address] Ur Total Protein <6.0 Invalid Interpretation Code [facility] Comment on above: Performed By: #### 1 [id number], 57287947 ####[facility] [address] [place] [address] eGFRon 12-01-2023 eGFR 67 mL/min/1.73 m2 Normal >=[address] [facility] Comment on above: Order Comment: Order added by Discern Expert. Performed By: #### 2 882587, 5113041, 64444332, 8368944, 232489422 ####[facility] [address] [place] [address] Basic Metabolic Panelon 122 Anion gap [Moles/Vol] 8.1 mmol/L Normal 6.0-15.0 [facility] Comment on above: Order Comment: Reaso n for Exam Hyponatremia Performed By: #### C BC, BMP #### [address] Calcium [Mass/Vol] 9.3 mg/dL Normal 8.6-10.3 [facility] Comment on above: Order Comment: Reaso n for Exam Hyponatremia Result Comment: PERF ORMED BY: [place] [address] PATHOLOGIST [employer] REPRESENTATIVE DANNY NEAL M.D. Performed By: #### C CECILIA, BMP #### [address] Chloride [Moles/Vol] 102 mmol/L Normal 98-107 [facility] [employer] Other Comment on above: Order Comment: Reaso n for Exam Hyponatremia Performed By: #### C CECILIA, BMP #### [id number] [facility] CO2 [Moles/Vol] 32.4 mmol/L High 21.0-31.0 [facility] Comment on above: Order Comment: Reaso n for Exam Hyponatremia Performed By: #### C BC, BMP #### [place] [address] [place] Creatinine [Mass/Vol] 1.07 mg/dL Normal 0.70-1.30 [facility] Comment on above: Order Comment: Reaso n for Exam Hyponatremia Performed By: #### C BC, BMP #### [id number] [place] GFR/1.73 sq M.predicted MDRD (S/P/Bld) [Vol rate/Area] mL/min/{1.73_m2} Normal [employer] Other Comment on above: Order Comment: Reaso n for Exam Hyponatremia Performed By: #### C BC, BMP #### [facility] [id number] [place] Glucose [Mass/Vol] 93 mg/dL Normal 70-100 [facility] Other Comment on above: Order Comment: Reaso n for Exam Hyponatremia Result Comment: [place] Glucose Reference Range is dependent on time and content of last meal. Glucose of more than 200 mg/dL in a nonstressed, ambulatory subject supports the diagnosis of Diabetes Mellitus. ADA recommended reference range Performed By: #### C BC, BMP #### [facility] [id number] [place] Potassium [Moles/Vol] 4.5 mmol/L Normal 3.5-5.1 [facility] Comment on above: Order Comment: Reaso n for Exam Hyponatremia Performed By: #### C BC, BMP #### [facility] [id number] [place] Sodium [Moles/Vol] 138 mmol/L Normal 136-145 [facility] [employer] Other Comment on above: Order Comment: Reaso n for Exam Hyponatremia Performed By: #### C BC, BMP #### [facility] [id number] [place] Urea nitrogen [Mass/Vol] 13 mg/dL Normal 7-25 [facility] Other Comment on above: Order Comment: Reaso n for Exam Hyponatremia Performed By: #### C BC, BMP #### [facility] [address] [place] [address] [place] Calcium [Mass/Vol] 9.0926303 mg/dL Normal 8.6-10 .3 mg/dL [employer] Other CO2 [Moles/Vol] 32.57001682 mmol/L High 21.0-3 1.0 mmol/L [facility] Other Creatinine [Mass/Vol] 1.97962479 mg/dL Normal 0. 70-1.30 mg/dL [facility] [employer] Other Potassium [Moles/Vol] 4.15742906 mmol/L Normal 3 .5-5.1 mmol/L [facility] [employer] Other Complete Blood Count Auto Di ffon 11-02-2023 Basophils (Bld) [#/Vol] 0.1 10*3/uL Normal 0.0-0.2 [facility] Comment on above: Order Comment: Reaso n for Exam Atrial fibrillation Result Comment: PERF ORMED BY: [place] [address] PATHOLOGIST [employer] REPRESENTATIVE DANNY NAEL M.D. Performed By: #### C BC, BMP #### [address] Basophils/100 WBC (Bld) 1.0 % Normal . [facility] Comment on above: Order Comment: Reaso n for Exam Atrial fibrillation Performed By: #### C BC, BMP #### [facility] [address] [place] [address] [place] Eosinophils (Bld) [#/Vol] 0.1 10*3/uL Normal 0.0-0.45 [facility] Comment on above: Order Comment: Reaso n for Exam Atrial fibrillation Performed By: #### C BC, BMP #### [address] Eosinophils/100 WBC (Bld) 2.1 % Normal . [facility] Comment on above: Order Comment: Reaso n for Exam Atrial fibrillation Performed By: #### C BC, BMP #### [facility] [address] [place] [address] [place] Erythrocyte distribution width (RBC) [Ratio] 14.0 % Normal 12.0-14.8 [facility] Comment on above: Order Comment: Reaso n for Exam Atrial fibrillation Performed By: #### C BC, BMP #### [facility] [address] [place] [address] Hematocrit (Bld) [Volume fraction] 38.8 % Normal 38.8-50.0 [facility] Comment on above: Order Comment: Reaso n for Exam Atrial fibrillation Performed By: #### C BC, BMP #### [address] Hemoglobin (Bld) [Mass/Vol] 13.2 g/dL Normal 13.0-17.0 [facility] Comment on above: Order Comment: Reaso n for Exam Atrial fibrillation Performed By: #### C BC, BMP #### [address] Lymphocytes (Bld) [#/Vol] 1.3 10*3/uL Normal 1.00-4.8 [facility] Comment on above: Order Comment: Reaso n for Exam Atrial fibrillation Performed By: #### C BC, BMP #### [address] Lymphocytes/100 WBC (Bld) 21.8 % Normal . [facility] Comment on above: Order Comment: Reaso n for Exam Atrial fibrillation Performed By: #### C BC, BMP #### [address] MCH (RBC) [Entitic mass] 31.5 pg Normal 27.5-35.2 [facility] Comment on above: Order Comment: Reaso n for Exam Atrial fibrillation Performed By: #### C BC, BMP #### [address] MCV (RBC) [Entitic vol] 92.7 fL Normal 83.5-101 [facility] Comment on above: Order Comment: Reaso n for Exam Atrial fibrillation Performed By: #### C BC, BMP #### [address] Mean Corpuscular HGB Conc 34.0 g/dL Normal 32.5-35.6 [facility] Comment on above: Order Comment: Reaso n for Exam Atrial fibrillation Performed By: #### C BC, BMP #### [address] Monocytes (Bld) [#/Vol] 0.5 10*3/uL Normal 0.0-0.8 [facility] Comment on above: Order Comment: Reaso n for Exam Atrial fibrillation Performed By: #### C BC, BMP #### [facility] [address] [place] [address] [place] Monocytes/100 WBC (Bld) 8.5 % Normal . [facility] Comment on above: Order Comment: Reaso n for Exam Atrial fibrillation Performed By: #### C BC, BMP #### [facility] [address] [place] [address] [place] Neutrophils (Bld) [#/Vol] 4.0 10*3/uL Normal 1.8-7.7 [facility] Comment on above: Order Comment: Reaso n for Exam Atrial fibrillation Performed By: #### C BC, BMP #### [facility] [address] [place] [address] [place] Neutrophils/100 WBC (Bld) 66.6 % Normal . [facility] Comment on above: Order Comment: Reaso n for Exam Atrial fibrillation Performed By: #### C BC, BMP #### [facility] [address] [place] [address] [place] NRBC% 0.1 /100{WBC} Normal 0-0.5 [facility] Comment on above: Order Comment: Reaso n for Exam Atrial fibrillation Performed By: #### C BC, BMP #### [facility] [address] [place] [address] [place] Platelet mean volume (Bld) [Entitic vol] 9.4 fL Normal 6.6-10.1 [facility] Comment on above: Order Comment: Reaso n for Exam Atrial fibrillation Performed By: #### C BC, BMP #### [facility] [id number] [place] Platelets (Bld) [#/Vol] 153 10*3/uL Normal 150-450 [facility] Other Comment on above: Order Comment: Reaso n for Exam Atrial fibrillation Performed By: #### C BC, BMP #### [facility] [address] [place] [address] [place] RBC (Bld) [#/Vol] 4.19 10*6/uL Normal 3.90-5.60 [facility] Other Comment on above: Order Comment: Reaso n for Exam Atrial fibrillation Performed By: #### C CECILIA, BMP #### [facility] [address] [place] [address] [place] WBC (Bld) [#/Vol] 6.1 10*3/uL Normal 4.1-10.5 [facility] Comment on above: Order Comment: Reaso n for Exam Atrial fibrillation Performed By: #### C CECILIA, BMP #### [facility] [address] [place] [address] [facility] Basophils (Bld) [#/Vol] 0.808838941 10*3/uL Normal 0.0-0.2 10*3/uL [facility] Other Basophils/100 WBC (Bld) 1.000 % . % [facility] Other Eosinophils (Bld) [#/Vol] 0.188190337 10*3/uL Normal 0.0-0.45 10*3/uL [facility] Other Eosinophils/100 WBC (Bld) 2.100 % . % [facility] Other Erythrocyte distribution width (RBC) [Ratio] 14.000 % Normal 12.0-14.8 % [facility] Other Hematocrit (Bld) [Volume fraction] 38.800 % Normal 38.8-50.0 % [facility] Other Hemoglobin (Bld) [Mass/Vol] 13.184912 g/dL Normal 13.0-17.0 g/dL [facility] Other Lymphocytes (Bld) [#/Vol] 1.604930183 10*3/uL Normal 1.00-4.8 10*3/uL [facility] Other Lymphocytes/100 WBC (Bld) 21.800 % . % [facility] Other MCH (RBC) [Entitic mass] 31.5000 pg Normal 27.5-35.2 pg [facility] Other MCV (RBC) [Entitic vol] 92.7000 fL Normal 83.5-101 fL [facility] Other Monocytes (Bld) [#/Vol] 0.628847113 10*3/uL Normal 0.0-0.8 10*3/uL [facility] Other Monocytes/100 WBC (Bld) 8.500 % . % [facility] Other Neutrophils (Bld) [#/Vol] 4.104237353 10*3/uL Normal 1.8-7.7 10*3/uL [facility] Other Neutrophils/100 WBC (Bld) 66.600 % . % [facility] Other Platelet mean volume (Bld) [Entitic vol] 9.4000 fL Normal 6.6-10.1 fL [facility] Other WBC (Bld) [#/Vol] 6.908384271 10*3/uL Normal 4.1 -10.5 10*3/uL [facility] Other Complete Blood Count Auto Diff 6.1 10*3/uL Normal 4.1-10.5 10*3/uL [facility] Other Complete Blood Count Auto Diff 34.0 g/dL Normal 32.5-35.6 g/dL [facility] Other Complete Blood Count Auto Diff 0.1 /100{WBC} Normal 0-0.5 /100{WBC} [facility] Other PSA Screen (Yearly Only)on 01-03-2023 PSA Screen (Yearly Only) 1.940 ng/mL Normal 0.000-4.000 [facility] Comment on above: Order Comment: Reaso n for Exam Prostate cancer screening Result Comment: Seri al tumor marker results determined by assays using different manufacturers or methods may not be comparable. [facility] Laboratory batt machine operator and method: SaaSMAXEL DXI, CHEMILUMINESCENT IMMUNOASSAY. PERFORMED BY: [place] [address] PATHOLOGIST CONSTRUCTION SALES REPRESENTATIVE DANNY NEAL M.D. Performed By: #### P SAS #### [place] [id number] [place] Prothrombin Time INRon 06-16 INR Coag (PPP) [Relative time] 2.4 {INR} Normal [facility] Other Comment on above: Result Comment: INR [...] heart valves: 3 - 4.5 PERFORMED BY: [place] [address] PATHOLOGIST CONSTRUCTION SALES REPRESENTATIVE DANNY NEAL M.D. Performed By: #### P T #### [place] [id number] [facility] PT Coag (PPP) [Time] 27.8 s High 9.0-12.9 [facility] Comment on above: Performed By: #### P T #### [place] [id number] [facility] PT Coag (PPP) [Time] 27.800 s High 9.0-12.9 s [facility] [employer] Other Coding Summaryon 05-12-2020 Coding Summary CODING DATE: 05/12/2020 [facility] STATUS: Home PAYOR: Medicare MC ADMIT [...] Aidee Horan Date Saved: 05/12/2020 02:18 pm [facility] ED Clinical Summaryon 2019 ED Clinical Summary [facility] ? Urgent Care [address] [place] [address] [id number] Clinical Summary PERSON INFORMATION Name: DARIEL AGUILERA Age: 80 Years Sex: MALE : 1940 MRN: Acct#: Visit Reason: UC - Ear Problem; BILAT EAR PROBLEM Arrival: 05/08/2020 09:32:00 Discharge: 05/08/2020 10:15:00 LOS: 000 00:43 Check In: 05/08/2020 09:32:00 Checkout: 05/08/2020 10:15:00 Address: [address] [place] [id number] PCP: Provider, Unlisted PROVIDER INFORMATION Provider Role [...] Earwax Buildup, Adult Follow-Up: With: Address: When: Andrés Arellano [facility], [address] [place] [address] Business (1) Comments: Please follow-up with your Doctor or Dr. Arellano, Medical Doctor rn interventional, call their offices and make ointment to be seen in 3 days or sooner for continued care, please purchase wvvp-csn-douwtgz Debrox which helps breakdown earwax, take all your medications as previously prescribed, drink plenty of water for hydration, and return back to urgent care center for any worsening symptoms, concerns, or complications. DIAGNOSIS: 1:Impacted cerumen of both ears Patient Understands: Yes - Patient/family/careg iver verbalizes understanding of instructions given Comment: Normal [facility] ED Patient Summaryon 020 ED Patient Summary [facility] ? Urgent Care [address] [place], [place] [id number] PATIENT DISCHARGE INSTRUCTIONS Patient Information Name: DARIEL AGUILERA Age: 80 Years Date of : 1940 Reason For Visit: UC - Ear Problem; BILAT EAR PROBLEM Arrival Time: 05/08/2020 09:32:00 Primary Care Physician: Provider, Unlisted Attending Physician: Larry Billingsley PA-C Comment: Patient Education With: Address: When: Andrés [facility], [address] [place] [address] Business (1) Comments: Please follow-up with your Doctor or Dr. Arellano, Medical Doctor rn interventional, call their offices and make ointment to be seen in 3 days or sooner for continued care, please purchase fxns-zjj-swehjvf Debrox which helps breakdown earwax, take all [...] Follow these instructions at home: ? Take qjfa-hgg-abqsnnx and prescription medicines only as told by [...] clean them according to instructions from the batt machine operator and your health care provider. Contact a [...] 12/08/2005 Document Revised: 10/12/2018 Document Reviewed: 01/11/2018 [employer] Interactive Patient Education ? 2019 [employer]. Medication Information: The exam and treatment you received today in the [facility] Emergency Department were for an urgent problem and are not intended as complete care. It is important for you to follow up with a doctor, nurse practitioner, or physician?s preschool assistant director for ongoing care. If your symptoms become [...] so we can reach you if necessary. [facility] Emergency Department has provided you with a complete list of medications post discharge. Please inform your entry level financial analyst/provider of your visit and for further instruction [...] both ears (H61.23) UC - Ear Problem ([id number]) If you received any narcotics, sedation, or [...] for Disease Control and Prevention July 2014 [facility] Patient Handouton 05-08-2020 Patient Handout Patient [...] Follow these instructions at home: ? Take caak-ths-cduiede and prescription medicines only as told by [...] clean them according to instructions from the batt machine operator and your health care provider. Contact a [...] 12/08/2005 Document Revised: 10/12/2018 Document Reviewed: 01/11/2018 ElseMa[employer]uck Interactive Patient Education ? 2019 [employer] Normal [facility] Urgent Care Recordon 05-08- 020 Urgent Care Record [facility] ? Urgent Care [address] [place] [address] PATIENT DISCHARGE INSTRUCTIONS Patient Information Name: DARIEL AGUILERA Age: 80 Years Date of : 1940 Reason For Visit: UC - Ear Problem; BILAT EAR PROBLEM Arrival Time: 05/08/2020 09:32:00 Primary Care Physician: Provider, Unlisted Attending Physician: Larry Billingsley PA-C Comment: Visit Diagnosis: Diagnoses This Visit Impacted cerumen of both ears (H61.23) UC - Ear Problem ([id number]) If you received any narcotics, sedation, or [...] sign any legal documents With: Address: When: Andrés [facility], [address] [place] [address] Business (1) Comments: Please follow-up with your Doctor or Dr. Arellano, Medical Doctor rn interventional, call their offices and make ointment to be seen in 3 days or sooner for continued care, please purchase bobl-jxj-niamlog Debrox which helps breakdown earwax, take all your medications as previously prescribed, drink plenty of water for hydration, and return back to urgent care center for any worsening symptoms, concerns, or complications. Medication Information: The exam and treatment you received today in the [facility] Urgent Care were for an urgent problem and are not intended as complete care. It is important for you to follow up with a doctor, nurse practitioner, or physician?s preschool assistant director for ongoing care. If your symptoms become [...] so we can reach you if necessary. [facility] has provided you with a complete list of medications post discharge. Please inform your entry level financial analyst/provider of your visit and for further instruction [...] Follow these instructions at home: ? Take zxzl-ihx-rrehnou and prescription medicines only as told by [...] clean them according to instructions from the batt machine operator and your health care provider. Contact a [...] 12/08/2005 Document Revised: 10/12/2018 Document Reviewed: 01/11/2018 Collactive Interactive Patient Education ? 2019 [employer] Inc. Viruses or Bacteria What?s got you [...] for Disease Control and Prevention July 2014 Normal [facility] Vital Signs Date Time Vital Sign Value Performing Clinician Facility 03-06-2024 08:11-0400 Blood Pressure Location Axel Hernández [facility] 03-06-2024 08:11-0400 Diastolic blood pressure 74 mm[Hg] Axel Hernández [facility] 03-06-2024 08:11-0400 Heart rate 56 /min Axel Hernández [facility] 03-06-2024 08:11-0400 Mean blood pressure 98 mm[Hg] Axel Hernández [facility] 03-06-2024 08:11-0400 Systolic blood pressure 147 mm[Hg] Axel Hernández [facility] 03-06-2024 08:11-0400 Heart rate 57 /min Axel Hernández [facility] 03-06-2024 08:11-0400 SaO2% (BldA) [Mass fraction] 98 % Axel Hernández [facility] 03-06-2024 08:10-0400 Blood Pressure Location Axel Hernández [facility] 03-06-2024 08:10-0400 Body temperature 98.06 [degF] Axel Hernández [facility] 03-06-2024 08:10-0400 Diastolic blood pressure 73 mm[Hg] Axel Hernández [facility] 03-06-2024 08:10-0400 Mean blood pressure 92 mm[Hg] Axel Hernández [facility] 03-06-2024 08:10-0400 Systolic blood pressure 129 mm[Hg] Axel Hernández [facility] 03-06-2024 08:10-0400 Respiratory rate 18 /min Axel Hernández [facility] 11-18-2023 11:00-0500 Body height 180.34 cm Jada Rene Other [facility] Other 11-18-2023 11:00-0500 Body mass index (BMI) [Ratio] 25.38 kg/m2 Jada Rene Other [facility] Other 11-18-2023 11:00-0500 Body temperature 97.6 [degF] Jada Rene Other [facility] Other 11-18-2023 11:00-0500 Body weight 82.56 kg Jada Rene Other [facility] Other 11-18-2023 11:00-0500 Diastolic blood pressure 80 mm[Hg] Jada Rene Other [facility] Other 11-18-2023 11:00-0500 Respiratory rate 18 /min Jada Rene Other [facility] Other 11-18-2023 11:00-0500 SaO2% (BldA) [Mass fraction] 99 % Jada Rene Other [facility] Other 11-18-2023 11:00-0500 Systolic blood pressure 132 mm[Hg] Jada Rene Other [facility] Other 11-02-2023 13:00-0500 Body height 180.34 cm Jada Rene Other [facility] Other 11-02-2023 13:00-0500 Body mass index (BMI) [Ratio] 24.4 kg/m2 Jada Rene Other [facility] Other 11-02-2023 13:00-0500 Body weight 79.38 kg Jada Rene Other [facility] Other 11-02-2023 13:00-0500 Diastolic blood pressure 82 mm[Hg] Jada Rene Other [facility] Other 11-02-2023 13:00-0500 Respiratory rate 18 /min Jada Edgard Other [facility] Other 11-02-2023 13:00-0500 SaO2% (BldA) [Mass fraction] 97 % Jada Rene Other [facility] Other 11-02-2023 13:00-0500 Systolic blood pressure 138 mm[Hg] Jada Rene Other [facility] Other 09-21-2023 10:00-0500 Body height 180.34 cm Jada Rene Other [facility] Other 09-21-2023 10:00-0500 Body mass index (BMI) [Ratio] 25.81 kg/m2 Jada Rene Other [facility] Other 09-21-2023 10:00-0500 Body weight 83.96 kg Jada Rene Other [facility] Other 09-21-2023 10:00-0500 Diastolic blood pressure 70 mm[Hg] Jada Rene Other [facility] Other 09-21-2023 10:00-0500 Respiratory rate 18 /min Jada Rene Other [facility] Other 09-21-2023 10:00-0500 SaO2% (BldA) [Mass fraction] 98 % Jada Rene Other [facility] Other 09-21-2023 10:00-0500 Systolic blood pressure 140 mm[Hg] Jada Rene Other [facility] Other 06-16-2023 11:00-0400 Body height 180.34 cm Jadayomi Rene Other [facility] Other 06-16-2023 11:00-0400 Body mass index (BMI) [Ratio] 23.79 kg/m2 Jada Rene Other [facility] Other 06-16-2023 11:00-0400 Body weight 77.38 kg Jadamary Rene Other [facility] Other 06-16-2023 11:00-0400 Diastolic blood pressure 64 mm[Hg] Jadamary Rene Other [facility] Other 06-16-2023 11:00-0400 Respiratory rate 18 /min Jada Rene Other [facility] Other 06-16-2023 11:00-0400 SaO2% (BldA) [Mass fraction] 98 % Jada Rene Other [facility] Other 06-16-2023 11:00-0400 Systolic blood pressure 118 mm[Hg] Jada Rene Other [facility] Other Encounters Encounter Date Encounter Type Care Provider Facility Start: 03-08-2024 ambulatory Kylah Garcia Facility :[facility] Start: 03-06-2024 End: 03-07-2024 ambulatory Axle Hernández [place] Start: 03-06-2024 End: 03-06-2024 Patient encounter procedure Axel Hernández [facility] Start: 02-15-2024 End: 02-15-2024 ambulatory AXEL HERNÁNDEZ Not Available Start: 02-15-2024 End: 02-16-2024 ambulatory AXEL Smalls EDGAR Not Available Start: 02-02-2024 End: 02-03-2024 ambulatory Kylah Garcia Facility:[facility] Start: 12-06-2023 End: 12-06-2023 ambulatory Jadamary Rene Other [facility] Other Start: 12-06-2023 Telephone encounter Jadamary Rene [facility] Start: 12-02-2023 End: 12-02-2023 ambulatory Jadayomi Rene Other [facility] Other Start: 12-02-2023 Telephone encounter Jadamary Rene [facility] Start: 12-01-2023 End: 12-02-2023 ambulatory Kylah Garcia Facility[place] [place] Start: 12-01-2023 End: 12-01-2023 Lab Drop off Kylah Garcia [facility] Start: 12-01-2023 ambulatory Kylah Garcia Facility:[facility] Start: 11-18-2023 End: 11-18-2023 ambulatory Jada Rene Other [facility] Other Start: 11-18-2023 Office outpatient vi sit 25 minutes Jadamary Rene [facility] Start: 11-02-2023 End: 11-02-2023 ambulatory Jadayomi Rene [place] [employer] Other Start: 11-02-2023 Office outpatient vi sit 25 minutes Jadayomi Rene [facility] Start: 11-02-2023 Telephone encounter Jadayomi Rene [facility] Start: 10-28-2023 End: 10-28-2023 ambulatory Jada Rene Other [facility] Other Start: 10-28-2023 Telephone encounter Jadayomi Rene [facility] Start: 09-30-2023 End: 09-30-2023 Nurse Triage Venessa Riggins RN NURSE PROFESSIONAL NURSING ASSISTANT Comment on above: Refill Request Start: 09-30-2023 Telephone encounter Jadayomi Rene [facility] Start: 09-21-2023 End: 09-21-2023 ambulatory Jadayomi Rene Other [facility] Other Start: 09-21-2023 Office outpatient vi sit 25 minutes Jada Edgard [facility] Start: 08-29-2023 End: 08-29-2023 ambulatory Jadayomi Rene Other [facility] Other Start: 08-29-2023 Telephone encounter Jada Edgard [facility] Start: 08-26-2023 End: 08-26-2023 ambulatory Jadayomi Rene Other [facility] Other Start: 08-26-2023 Telephone encounter Jadayomi Rene [facility] Start: 08-08-2023 End: 08-08-2023 ambulatory Jadayomi Rene Other [facility] Other Start: 08-08-2023 Telephone encounter Jadayomi Rene [facility] Start: 07-27-2023 End: 07-27-2023 ambulatory Jadayomi Rene Other [facility] Other Start: 07-27-2023 Telephone encounter Jada Edgard [facility] Start: 06-16-2023 End: 06-16-2023 ambulatory Jadayomi Rene [employer] Other Start: 06-16-2023 Office outpatient ne w 45 minutes Jada Rene [facility] Start: 06-16-2023 Telephone encounter Jada Rene [facility] Procedures Date Procedure Procedure Detail Performing Clinician Decompression of median nerve Axel Hernández Surgery (qualifier value) Sa fariha Garcia Plan of Treatment Date Care Activity Detail Author Start: 05-03-2024 ambulatory Ambulatory Facility:[facility] Start: 05-01-2024 ambulatory Ambulatory Facility:[facility] Start: 07-15-2023 Influenza vaccination Influenza Vaccine (#1) [facility] Start: 11-14-2022 Advance Directive Discussion Advance Directive Discussion [facility] Start: 11-14-2022 Depression Assessment Depression Assessment [facility] Start: 03-31-2016 Pneumococcal Vaccine: 65+ (2 - PPSV23 or PCV20) Pneumococcal Vaccine: 65+ (2 - PPSV23 or PCV20) [facility] Start: 03-24-2016 Hepatitis B surface antibody level LDL Cholesterol [facility] Start: 09-24-2015 Hemoglobin A1c/Hemoglobin.total in Blood HbA1C [facility] Start: 08-01-2015 3 comp foot exam completed Diabetic Foot Exam [facility] Start: 07-25-2015 Hepatitis B screening Urine Albumin:Creatinine Ratio [facility] Start: 02-01-2015 Urine microalbumin profile DTaP,Tdap,Td Vaccine (1 - Tdap) [facility] Start: 10-24-2013 Shingrix Vaccine (2 of 3) Shingrix Vaccine (2 of 3) [facility] Start: 09-14-2012 Hepatitis C antibody, confirmatory test Dilated Retinal Exam [facility] Start: 2002 RSV Vaccine (1 - 1-dose 60+ series) RSV Vaccine (1 - 1-dose 60+ series) [facility] Start: 1940 Covid-19 Vaccine (#1) Covid-19 Vaccine (#1) [facility] Immunizations Immunization Date Immunization Notes Care Provider Fa cility 09-21-2023 Prevnar 20 Jada Rene Other [facility] 08-19-2023 Flu Shot - Documentation Purposes Only Jada Rene Other [facility] Other 08-19-2023 influenza virus vaccine, unspecified formulation Kylah Garcia [facility] 08-14-2022 influenza, seasonal, injectable Jada Edgard Other [facility] Other 03-31-2015 pneumococcal conjuga te vaccine, 13 valent Jada Edgard Other [facility] 08-02-2014 influenza, high dose seasonal, preservative-free Venessa Riggins RN [facility] 08-02-2014 influenza virus vaccine, unspecified formulation Venessa Riggins RN [facility] 08-29-2013 zoster vaccine, live Venessa Riggins RN [facility] 08-09-2013 influenza virus vaccine, unspecified formulation Venessa Riggins RN [facility] 07-31-2012 influenza virus vaccine, unspecified formulation Venessa Riggins RN [facility] Work Phone: 03-07-2012 tetanus and diphther ia toxoids, adsorbed, preservative free, for adult use (2 Lf of tetanus toxoid and 2 Lf of diphtheria toxoid) Venessa Riggins RN [facility] Work Phone: 08-07-2011 influenza virus vaccine, unspecified formulation Venessa Riggins RN [facility] Work Phone: Payers Date Payer Category Payer Unknown [id number] 2023 Medicare [id number] 2023 Self-pay 2023 Medicare [employer] [facility] [id number] 2023-Present [phone] [address] [place] [address] O [id number] 1940 Unknown [id number] 9 1940 Unknown [id number] [id number] 9 1940 Unknown [id number] [id number] 9 1940 Unknown [id number] [id number] 1940 Unknown [id number] [id number] 1940 Unknown [id number] [id number] 1940 Unknown [id number] [id number] 1940 Unknown [id number] [id number] 1940 Unknown [id number] 2.16.840.1.116072.3.579.2.727 1940 Unknown [id number] 2.16.840.1.283403.3.579.2.727 1940 Unknown [id number] [id number] Medicare [id number] [id number] Unknown [id number] [id number] Unknown [id number] [id number] Social History Date Type Detail Facility Sex Assigned At [facility] Start: 12-01-2023 End: 02-02-2024 Tobacco smoking status NHIS Never smoked tobacco [facility] Start: 06-28-2022 Alcohol intake Current drinke r of alcohol (finding) [facility] Start: 06-28-2022 Alcohol intake Lisa oliva [facility] Start: 1940 Sex Assigned At Not on file C [facility] Tobacco smoking status Never [facility] Medical Equipment Procedure Code Equipment Code Equipment Origin al Text Equipment Identifier Dates Test blood sugar(s) 2 times daily. Dx: non. Insulin: No dx 250.00 Start: 08-24-2013 Comment on above: Test blood sugar(s) 2 times daily. Dx: non. Insulin: No dx 250.00 Functional Status Date Assessment Result Facility 03-06-2024 Functional Status No [facility] Clinical Notes 03-10-2010 to 11-18-2023 Note Date & Type Note Facility 11-18-2023 Evaluation note Encounter Date Diagnosis Assessment Notes Nov, Anticoagulant long-term use (ICD-10 - Z79.01) Discussed risks of NSAID use with anticoagulatio n, will discontinue meloxicam at this point Nov, Atrial fibrillation (ICD-10 - I48.91) Atenolol increased to BID, appears to be in NSR on exam today. Will continue Nov, Influenza A (ICD-10 - J10.1) Completed course of tamiflu, recovered well from influenza Nov, Chronic hyponatremia (ICD-10 - E87.1) Will continue sodium chloride supplementatio n, will plan to recheck sodium level at upcoming appt in January [facility] Other 12-20-2023 Evaluation note* Encounter Date Diagnosis Assessment Notes Treatment Notes Treatment Clinical Notes Oct, Hyponatremia (ICD-10 - E87.1) Oct, [...] further dizziness symptoms would recommend f/u with x ray service technician as well. [facility] Other 11-17-2023 Evaluation note* Encounter Date Diagnosis Assessment Notes Treatment Notes Treatment Clinical Notes Sep, Type 2 diabetes mellitus (ICD-10 - E11.9) [facility] Other 11-17-2023 Miscellaneous Notes* Telephone Encounter - Venessa Riggins RN - 09/30/2023 12:29 PM EST Called patient back and reviewed plan from his call with Nurse Strap Making Machine Operator at 11:36 AM. See my note Patient already called his PCP as advise and waiting call back for scheduling. He was hospital discharged on 08/26 for cognitive problems and low sodium. He finished his pills for low sodium today. NOC closing was given [facility] [...] have any questions, you can call Nurse production supervisor off shift back. * Telephone Encounter - Venessa Riggins RN - 09/30/2023 11:36 AM EST Patient calling with request for physician referral: Patient referred to nephrology and primary care Department. Patient denies any new or worsening symptoms of which a provider is not aware: Yes. Patient was discharged from [facility] on 08/26 for low sodium [...] appt center and then call dropped. My [place] and [employer] lost connection. NOC closing was given GO TO THE EMERGENCY ROOM OR CALL 911 IF: * You develop any new symptoms * Your condition worsens * You are concerned or anxious about your condition for any other reason. If you have any questions, you can call Nurse production supervisor off shift back. [facility]* Encounter Date Diagnosis Assessment Notes Treatment Notes Treatment Clinical Notes Sep, Hyponatremia (ICD-10 - E87.1) Recent sodium 136 at low end of normal, given significance of symptoms and recommendation of hospital for f/u will refer to nephrology patient requesting [place] Sep, Anticoagulant long-term use (ICD-10 - Z79.01) Follows with INR clinic through [facility]. Sep, Atrial fibrillation (ICD-10 - I48.91) Appears in NSR today, anticoagulated on Warfarin Sep, Hypothyroidism (ICD-10 - E03.9) Recent TFTs in normal range, clinically euthyroid, continue current dose of LT4 Sep, Type 2 diabetes mellitus (ICD-10 - E11.9) Recent a1c in good range at 5.6%, continue current dose of glimepiride. Sep, Immunization due (ICD-10 - Z23) [facility] Other 10-16-2023 Evaluation note* Encounter Date Diagnosis Assessment Notes Treatment Notes Treatment Clinical Notes Aug, Hyponatremia (ICD-10 - E87.1) [facility] Other 08-03-2023 Evaluation note* Encounter Date Diagnosis Assessment Notes Treatment Notes Treatment Clinical Notes Jun, Atrial fibrillation (ICD-10 - I48.91) Rate controlled, mild bradycardia but asymptomatic. Will continue current dose of atenolol. He is anticoagulated on Coumadin with goal INR 2-3, he is due for INR check. Will refer to coumadin clinic through [facility] Jun, Anticoagulant long-term use (ICD-10 - Z79.01) Jun, Hearing loss (ICD-10 - H91.90) Referral to local clothes wringer Jun, Dermatitis (ICD-10 - L30.9) Can trial topical steroid PRN, discussed may be secondary to dry skin. Recommend daily use of lotion Jun, Hypothyroidism (ICD-10 - E03.9) Due for TFTs prior to next visit Jun, Type 2 diabetes mellitus (ICD-10 - E11.9) Due for a1c prior to next visit Jun, BPH (benign prostatic hyperplasia) (ICD-10 - N40.0) [facility] Other 08-03-2023 Reason for referral (narrative)* Reason Medication managemen t through [facility] - Coumadin management with INR goal 2-3 Diagnosis 1 Anticoagulant long-t erm use (Z79.01) Referral Organization [facility] Rodo John Referring Provider First Name Jada Referring Provider Last Name [facility] Referring Provider Specialty [facility] Referred Organization [facility] Referred Address [address], [place],[address] Referred Provider Specialty Milvia felix Referral Priority Routine General Notes Gabrielle Reid 01/2023 01:34:29 PM >this is an order not a referral, clinical informed and will fax order over for standing order INR to [facility] Reason * FU 06/29 CALL he aring loss, issue with hearing aids Diagnosis 1 Hearing loss (H91.90 ) Referral Organization [facility] Family Rodo John Referring Provider First Name Jada Referring Provider Last Name [facility] Referring Provider Specialty [facility] Referred Organization [facility] Referred Address ,[place], [place],[address] Referred Provider Specialty Audiologists Referral Priority Routine General Notes Gabrielle Reid 01/2023 01:28:34 PM >referral received and faxed [facility] Other 04-27-2010 History of Past illness Narrative* Problem Noted Date Diagnosed Date Resolved Date Myalgia 03/10/2010 03/01/2011 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 and other lower urinary tract symptoms (LUTS) 08/11/2006 01/11/2013 Elevated prostate specific antigen (PSA) 03/07/2012 documented as of this encounter (statuses as of 09/30/2023) [facility] No data available for this section [facility] note Future Appointments Appointment Date:03/08/2024 01:00:00 PM Scheduled Provider:[facility] Open Appointment Date:03/26/2024 01:45:00 PM Scheduled Provider: Location:[facility] Appointment Type:Surgery FT Appointment Date:05/01/2024 09:00:00 AM Scheduled Provider: [facility] Type:FM Lab Draw Appointment Date:05/03/2024 08:00:00 AM Scheduled Provider: Location:[facility] Appointment Type:FM Medicare Wellness Subsequent Appointment Date:05/03/2024 09:00:00 AM Scheduled Provider:Kylah Garcia MD Location:[facility] Appointment Type: Open Future Scheduled Tests Laboratory* PSA Screen, Total 02/02/24 * CBC w/ Auto Diff 02/02/24 * Comprehensive Metabolic Panel 02/02/24 * Lipid Panel 02/02/24 [facility] noteNo InformationNortEn[facility] [employer] Other Hisqash general Narrative - Reported* Type Description Date Medical History type 2 diabetes Medical History hypothyroid Medical History Afib Surgical History multiple neck sx Surgical History tonsillectomy Surgical History adenoidectomy Surgical History MAU cataract Hospitalization History see above [facility] Other [facility] general Narrative - Reported* Type Description Date Medical History type 2 diabetes Medical History hypothyroid Medical History Afib Surgical History multiple neck sx Surgical History tonsillectomy Surgical History adenoidectomy Surgical History MAU cataract Hospitalization History see above Hospitalization History [facility]2023 [facility] Other Hisolac general Narrative - Reported* Type Description Date Medical History type 2 diabetes Medical History hypothyroid Medical History Afib Surgical History multiple neck sx Surgical History tonsillectomy Surgical History adenoidectomy Surgical History MAU cataract Hospitalization History see above Hospitalization History low [facility]2023 Hospitalization History [facility]--Influe nza A, hyponatremia, paroxysmal afib, altered mental status, type 2 DM, generalized weakness hypomagnesiema, RADHA 11/13/23-11/15/23 [facility] Other Hospital Discharge instructions No data available for this section [facility] No data available for this section [facility] Summary Purpose Family History No Family History Records FoundNo Family History Records Found No data available for this section No Family History Records Found No data available for this section No Family History Records Found Advance Directives No Advanced Directives Records FoundNo Advanced Directives Records FoundNo Advanced Directives Records FoundNo Advanced Directives Records Found Reason for Referral Reason * FU 09/28 follow up hospitalization for symptomatic hyponatremia, [facility] [place] [address] Lara ph [phone], fax [phone] Diagnosis 1 Hyponatremia (E87.1) Referral Organization [facility] Family [employer] Dora Referring Provider First Name Jada Referring Provider Last Name [facility] Referring Provider Specialty [facility] Tirendo Referred Organization [facility] Referred Provider Romeo Lara Referred Address [address] [place], [place],[address] Referred Provider Specialty Internal Med icine Referral Priority Routine General Notes Gabrielle Reid 06/2023 01:35:25 PM > referral received and faxed Clinical Notes [facility] [place] [address] Lara ph [phone], fax [phone] Reason hyponatremia, recent hospitalization [facility] for hyponatremia Diagnosis 1 Hyponatremia (E87.1) Referral Organization [facility] [employer] Dora Referring Provider First Name Jada Referring Provider Last Name [facility] Referring Provider Specialty [facility] Referred Organization [facility] Referred Address [address] [place], [place],[address] Referred Provider Specialty Nephrology Referral Priority Routine Additional Source Comments (unrecognized sect ion and content) No Status Records FoundNo Status Records FoundNo Status Records FoundNo Status Records Found INFORMATION SOURCE (unrecogn ized section and content) DATE CREATED AUTHOR 06/03/2020 [facility] DATE CREATED AUTHOR AUTHOR'S ORGANIZ ATION 11/10/2023 [facility] DATE CREATED AUTHOR AUTHOR'S ORGANIZ ATION 02/19/2024 [facility] EPIC DATE CREATED AUTHOR AUTHOR'S CLARENCE ROSS 03/08/2024 [facility] REASON FOR VISIT (unrecogniz ed section and content) Reason Comments Refill Request Source Comments (unrecognize d section and content) In the event this informatio n is protected by the Federal Confidentiality of Alcohol and Drug Abuse Patient Records regulations: The Federal rules restrict any use of the information to criminally investigate or prosecute any alcohol or drug abuse patient.[facility] Care team informatio n (unrecognized section and content) Personnel Name: Kylah Garcia MD Address: Address: [address] [place] [address] Personnel Name: Kylah Garcia MD Address: Address: [address] [place] [address] FOR RECORDS PERTAINING TO PATIENTS WHO ARE [...] BE BASED ON THE PRIMARY CLINICAL RECORDS. [facility] [employer] [facility]. provides no warranty or guarantee of the accuracy or completeness of information in this document.
--- NOTE | 2024-03-10 13:29 | CT_ITS ---
The [address] [address] Patient Name: INDIANA ZABALA MRN: [id number] date: 1940 Sex: M Assigned Patient Location: ER Current Patient Location: .MAIN Accession/Order Number: [id number] Exam Date: 03/10/2024 14:20 Report Date: 03/10/2024 15:06 At the request of: JOSE KRISHNAN Procedure: CT cervical spine wo con EXAM TYPE: CT cervical spine wo con EXAM DATE AND TIME: 03/10/2024 2:20 PM EDT INDICATION: 83 years old Male with pain following trauma COMPARISON: CT scan 08/21/2023 TECHNIQUE: CT imaging of the cervical spine was obtained without contrast. Dose reduction techniques were achieved by using automated exposure control and/or adjustment of mA and/or kV according to patient size and/or use of iterative reconstruction technique. FINDINGS: There is straightening of the cervical lordosis. No subluxation. Vertebral body heights are maintained. No fracture. Craniocervical junction is normal in appearance. Atlantodental distance is not widened. No prevertebral soft tissue swelling. There are surgical changes from C3-C4 ACDF as well as C5 C7 ACDF. Hardware appears intact. 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 There is at least moderate spinal canal stenosis at the C6-C7 level. The lung apices are clear. CT/CT cervical spine wo con IMPRESSION: No acute fracture or traumatic malalignment. Electronically authenticated by: SHIV LEON Date: 03/10/2024 15:06
--- NOTE | 2024-03-10 13:29 | CT_ITS ---
The [address] [address] Patient Name: INDIANA ZABALA MRN: [id number] date: 1940 Sex: M Assigned Patient Location: ER Current Patient Location: .[facility] Accession/Order Number: [id number] Exam Date: 03/10/2024 14:20 Report Date: 03/10/2024 15:06 At the request of: JOSE KRISHNAN Procedure: CT head/brain wo con EXAM: CT head/brain wo con HISTORY: fall on coumadin COMPARISON: CT head 11/13/2023. TECHNIQUE: Axial noncontrast CT imaging of the head was performed with coronal and sagittal reformats. This CT exam was performed using one or more of the following dose reduction techniques: Automated exposure control, adjustment of the MA and/or kV according to patient size, or use of iterative reconstruction technique. FINDINGS: Calvarium/skull base: No evidence of acute fracture or destructive lesion. Mastoids and middle ears demonstrate no substantial mucosal disease. Paranasal sinuses: No air fluid levels. Brain: No acute intracranial hemorrhage. No acute large vascular territory infarct. Mild parenchymal volume loss. No mass lesion or mass effect. No hydrocephalus. CT/CT head/brain wo con IMPRESSION: No acute intracranial process. Electronically authenticated by: ELIZABET BENSON Date: 03/10/2024 15:06
--- NOTE | 2024-03-10 13:30 | XR_ITS ---
The [address] [address] Patient Name: INDIANA ZABALA MRN: [id number] date: 1940 Sex: M Assigned Patient Location: ER Current Patient Location: ER Accession/Order Number: [id number] Exam Date: 03/10/2024 14:30 Report Date: 03/10/2024 15:10 At the request of: JOSE KRISHNAN Procedure: XR chest 1V EXAM: XR chest 1V HISTORY: syncope COMPARISON: 11/13/2023 and earlier. TECHNIQUE: AP portable upright chest x-ray FINDINGS: Lungs are clear without infiltrate, edema or new density. Heart size accentuated by magnification borderline. No mediastinal mass or adenopathy. No pleural effusion or pneumothorax. Lower cervical hardware partially imaged. XR/XR chest 1V IMPRESSION: Stable chest x-ray, no acute findings. Electronically authenticated by: CARMEN LANCASTER Date: 03/10/2024 15:10
[2024-03-10 13:33] VITALS: BP 109/60; BP 115/58; BP 117/54; PULSE 76; PULSE 77; PULSE 80
[2024-03-10] MEDS: ADACEL DIPH,PERTUSS(ACELL),TET VAC/PF 0.5 ML ADULT SYRINGE IM (13:52)
[2024-03-10] MEDS: 0.9 % SODIUM CHLORIDE 1,000 ML 1000 ML IV (13:53)
[2024-03-10 13:54] LABS: Basophils Percent Auto 0.5 % (0.2-2.0); Eosinophils Absolute Auto 0.1 10^3/uL (0.0-0.7); Hematocrit 37.7 % (42.0-54.0); Hemoglobin 12.6 g/dL (14.0-18.0); Immature Granulocytes Abs Auto 0.03 10^3/uL (0.00-0.03); Immature Granulocytes Pct Auto 0.5 % (0.0-0.5); Lymphocytes Absolute Auto 1.1 10^3/uL (1.2-3.8); Lymphocytes Percent Auto 17.4 % (20.5-60.0); Mean Corpuscular HGB Conc 33.4 g/dL (29.9-35.2); Mean Corpuscular Hemoglobin 30.3 pg (25.9-34.0); Mean Corpuscular Volume 90.6 fL (80.0-94.0); Mean Platelet Volume 11.2 fL (9.5-13.5); Monocytes Absolute Auto 0.4 10^3/uL (0.3-0.8); Monocytes Percent Auto 6.4 % (1.7-12.0); Neutrophils Absolute Auto 4.6 10^3/uL (1.4-6.5); Neutrophils Percent Auto 74.2 % (43.0-75.0); Platelet Count 153 10^3/uL (150-450); Red Blood Count 4.16 10^6/uL (4.70-6.10); Red Cell Distribution Width 13.3 % (11.0-15.0); White Blood Count 6.2 10^3/uL (4.0-11.0)
[2024-03-10 14:05] LABS: INR 2.08; Prothrombin Time 21.2 sec (9.0-11.6)
[2024-03-10 14:09] LABS: Alanine Aminotransferase 18 U/L (16-63); Albumin Globulin Ratio 1.2; Albumin Level 3.7 g/dL (3.4-5.0); Alkaline Phosphatase 79 U/L (46-116); Anion Gap 13.7; Aspartate Amino Transferase 22 U/L (15-37); BUN Creatinine Ratio 15.6; Bilirubin Total 0.8 mg/dL (0.2-1.0); Calcium 9.3 mg/dL (8.5-10.1); Carbon Dioxide 27.6 mmol/L (21.0-32.0); Chloride 102 mmol/L (98-107); Estimated GFR (African America >60 (>=60); Estimated GFR (Non-African Ame 57 (>=60); Globulin 3.1 g/dL; Glucose 194 mg/dL (74-106); Potassium 4.3 mmol/L (3.5-5.1); Sodium 139 mmol/L (136-145); Total Protein 6.8 g/dL (6.4-8.2)
[2024-03-10] MEDS: BACITRACIN OINTMENT 28.4 GM TUBE 1 APPLIC TOPICAL (15:30)
--- NOTE | 2024-03-10 17:09 | ED_ITS ---
HPI HPI - General Adult General Chief complaint: Head Injury Stated complaint: HEAD INJURY Time Seen by Provider: 03/10/24 13:30 Source: patient Mode of arrival: walk-in History of Present Illness HPI narrative: Patient is a 83-year-old male who is presenting to the Emergency Room today with chief complaint of a syncopal episode while sitting at a table at home with his . Patient fell backwards, hitting the right side of his head on a table. Patient has a small 2.25 cm linear laceration to the right parietal area, also a scalp abrasion to the top of his head. Patient is taking blood thinners. Patient has no headache or neck pain. No chest pain or shortness of breath. Patient has had syncopal episode like this in the past, patient has had admission to the hospital and serial testing done with no findings. is at bedside. Patient is hard of hearing. No active bleeding from his scalp. No other injuries, no extremity injuries. No nausea or vomiting. No vision changes, no other acute complaints. . All systems are negative except as noted/marked. All systems reviewed and otherwise negative. . Nurses note and vital signs reviewed and patient is not hypoxic. General: The patient appears well and in no apparent distress. Patient is resting comfortably on cart. Patient is not toxic, lethargic, or listless Skin: Warm, dry, no pallor noted. There is no rash noted. No petechiae, purpura. Head: Normocephalic, Patient has a 2.25 cm linear laceration to the right parietal scalp. Patient has a 1 x 1.5 cm superficial abrasion to the top of his head with a small skin tear. No active bleeding to either area. No midline or paracervical tenderness to palpation. Full range of motion of cervical spinal no difficulty. Eye: Normal conjunctiva, no drainage, EOMI. PERRL. 4/2, equal, bilateral. Ears, Nose, Mouth, and Throat: oral mucosa is moist. Nares patent. Mouth without vesicles. Hearing aids intact. Cardiovascular: Regular Rate and Rhythm, no murmur, gallop, rub Respiratory: Patient is in no distress, no accessory muscle use, lungs are clear to auscultation, no wheezing, rales or rhonchi Back: non-tender, no CVA tenderness bilaterally to percussion. No CT LS midline pain GI: soft, no tenderness to palpation, no masses appreciated. No rebound, guarding, or rigidity noted. No flank pain bilateral, No distention Musculoskeletal: Patient has full range of motion of all of the extremities, no motor, sensory, or focal neurological deficits Neurological: A&O x3, normal speech; Heart of hearing, this is his normal baseline. With me speaking Louder, communications clear and affected. Psychiatric: Cooperative Related Data Home Medications ?Medication ?Instructions ?Recorded ?Confirmed glimepiride 2 mg tablet 2 mg PO DAILY 08/21/23 03/10/24 levothyroxine 25 mcg tablet 25 mcg PO QAM 08/21/23 03/10/24 meloxicam 15 mg tablet 15 mg PO DAILY 08/21/23 03/10/24 omeprazole 40 mg capsule,delayed 40 mg PO DAILY 08/21/23 03/10/24 release pravastatin 40 mg tablet 40 mg PO DAILY 08/21/23 03/10/24 sildenafil 100 mg tablet 100 mg PO DAILY PRN sexual activity 08/21/23 03/10/24 tamsulosin 0.4 mg capsule 0.4 mg PO DAILY 08/21/23 03/10/24 warfarin 5 mg tablet (Jantoven) 5 mg PO MOWEFR 08/21/23 03/10/24 warfarin 2.5 mg tablet (Jantoven) 2.5 mg PO .4 days a week 08/22/23 03/10/24 finasteride 5 mg tablet 5 mg PO .qd 11/13/23 03/10/24 Previous Rx's ?Medication ?Instructions ?Recorded atenolol 25 mg tablet 25 mg PO BID #60 tabs 11/15/23 sodium chloride 1,000 mg soluble 1,000 mg PO TID #90 tabs 11/15/23 tablet ondansetron 4 mg disintegrating 4 mg PO Q4H PRN nausea and 03/10/24 tablet vomiting 3 days #6 tabs Allergies Allergy/AdvReac Type Severity Reaction Status Date / Time No Known Drug Allergies Allergy Verified 08/21/23 15:00 Opioid HPI Opioid Management Most Recent Opioid Data: Last Pain Scale 0 11/13/23 11:48 Ur Phencyclidine Scrn Negative (NEGATIVE) 08/21/23 03:22 PFSH PFSH Medical History (Updated 03/10/24 @ 14:53 by Jonah Pacheco MD) Hyponatremia ?E87.1 - Hypo-osmolality and hyponatremia (ICD-10) Hypomagnesemia ?E83.42 - Hypomagnesemia (ICD-10) RADHA (acute kidney injury) ?N17.9 - Acute kidney failure, unspecified (ICD-10) Paroxysmal atrial fibrillation ?I48.0 - Paroxysmal atrial fibrillation (ICD-10) Type 2 diabetes mellitus with hyperglycemia ?E11.65 - Type 2 diabetes mellitus with hyperglycemia (ICD-10) Influenza ?J11.1 - Influenza due to unidentified influenza virus with other respiratory manifestations (ICD-10) Hypomagnesemia ?E83.42 - Hypomagnesemia (ICD-10) Acute hyponatremia ?E87.1 - Hypo-osmolality and hyponatremia (ICD-10) Acute confusion ?R41.0 - Disorientation, unspecified (ICD-10) Diabetes ?E11.9 - Type 2 diabetes mellitus without complications (ICD-10) High cholesterol ?E78.00 - Pure hypercholesterolemia, unspecified (ICD-10) Atrial fibrillation ?I48.91 - Unspecified atrial fibrillation (ICD-10) Family History (Updated 11/13/23 @ 14:03 by Ashwini Ramirez RN) Father Family history of myocardial infarction Family history of hypertension Mother Family history of cancer Family history of diabetes mellitus Social History (Updated 11/13/23 @ 14:03 by Ashwini Ramirez RN) Within the past year, how often did you have a drink containing alcohol: 2-4 times a month Smoking status: Never smoker Highest level of school completed/degree received: high school graduate Gender Identity: male Exam Constitutional Vital Signs, click to edit/add: Last Vital Signs Temp 99 F 03/10/24 13:21 Pulse 76 03/10/24 13:33 Resp 20 03/10/24 13:21 BP 115/58 03/10/24 13:33 Pulse Ox 96 03/10/24 13:21 O2 Del Method Room Air 03/10/24 13:21 Course Vital Signs Vital signs: Vital Signs Temperature 99 F 03/10/24 13:21 Pulse Rate 87 03/10/24 13:21 Respiratory Rate 20 03/10/24 13:21 Blood Pressure 126/71 03/10/24 13:21 Pulse Oximetry 96 03/10/24 13:21 Oxygen Delivery Method Room Air 03/10/24 13:21 Temperature 99 F 03/10/24 13:21 Pulse Rate 76 03/10/24 13:33 Respiratory Rate 20 03/10/24 13:21 Blood Pressure 115/58 03/10/24 13:33 Pulse Oximetry 96 03/10/24 13:21 Oxygen Delivery Method Room Air 03/10/24 13:21 Medical Decision Making MDM Narrative Medical decision making narrative: Procedure note: 2.25 cm right parietal scalp laceration horizontal The wound was cleaned very thoroughly with peroxide and Hibiclens by Kieran RN, please see procedure note from Kieran RN. Patient had 4 mukesh placed easily with no difficulty. Riya RN was at bedside during this. All hair was removed from the laceration. Patient tolerated procedure well without difficulty. \ CT of the brain,Cervical spine, cardiac workup shows no significant findings. Patient was given 1 L of IV fluid. Bacitracin was applied to wounds. Education on head injury, scalp laceration, staple repair was done at bedside and on discharge paperwork. Patient was able to walk out of the Emergency Room the same when he walked in, with no difficulty. Lab Data Labs: Lab Results 03/10/24 Range/Units 13:45 WBC 6.2 (4.0-11.0) 10^3/uL RBC 4.16 L (4.70-6.10) 10^6/uL Hgb 12.6 L (14.0-18.0) g/dL Hct 37.7 L (42.0-54.0) % MCV 90.6 (80.0-94.0) fL MCH 30.3 (25.9-34.0) pg MCHC 33.4 (29.9-35.2) g/dL RDW 13.3 (11.0-15.0) % Plt Count 153 (150-450) 10^3/uL MPV 11.2 (9.5-13.5) fL Neut % (Auto) 74.2 (43.0-75.0) % Lymph % (Auto) 17.4 L (20.5-60.0) % [place] % (Auto) 6.4 (1.7-12.0) % Eos % (Auto) 1.0 (0.9-7.0) % Baso % (Auto) 0.5 (0.2-2.0) % Neut # (Auto) 4.6 (1.4-6.5) 10^3/uL Lymph # (Auto) 1.1 L (1.2-3.8) 10^3/uL [place] # (Auto) 0.4 (0.3-0.8) 10^3/uL Eos # (Auto) 0.1 (0.0-0.7) 10^3/uL Baso # (Auto) 0.0 (0.0-0.1) 10^3/uL Abs Immat Gran (auto) 0.03 (0.00-0.03) 10^3/uL Imm/Tot Granulo (auto) 0.5 (0.0-0.5) % PT 21.2 H (9.0-11.6) sec INR 2.08 Sodium 139 (136-145) mmol/L Potassium 4.3 (3.5-5.1) mmol/L Chloride 102 (98-107) mmol/L Carbon Dioxide 27.6 (21.0-32.0) mmol/L Anion Gap 13.7 BUN 19.0 H (7.0-18.0) mg/dL Creatinine 1.22 (0.70-1.30) mg/dL Est GFR ( Amer) >60 (>=60) Est GFR (Non-Af Amer) 57 L (>=60) BUN/Creatinine Ratio 15.6 Glucose 194 H (74-106) mg/dL Calcium 9.3 (8.5-10.1) mg/dL Total Bilirubin 0.8 (0.2-1.0) mg/dL AST 22 (15-37) U/L ALT 18 (16-63) U/L Alkaline Phosphatase 79 (46-116) U/L Troponin I High Sens 5.0 (4.0-76.1) pg/mL Total Protein 6.8 (6.4-8.2) g/dL Albumin 3.7 (3.4-5.0) g/dL Globulin 3.1 g/dL Albumin/Globulin Ratio 1.2 ECG Data Attestation: I personally reviewed and interpreted this ECG as follows: (EKG interpretation. Irregular irregular at 66 beats a minute. Normal axis deviation. No acute ST elevation, no acute ectopy. QTc of 408) Discharge Plan Discharge Stand Alone Forms: Portal Instructions Chief Complaint: Head Injury Clinical Impression: Abrasion of scalp, Closed head injury, Syncope, Laceration of scalp Patient Disposition: Home, Self-Care Time of Disposition Decision: 14:55 Condition: Fair Prescriptions / Home Meds: New ondansetron 4 mg tablet,disintegrating 4 mg PO Q4H PRN (Reason: nausea and vomiting) 3 Days Qty: 6 0RF No Action glimepiride 2 mg tablet 2 mg PO DAILY levothyroxine 25 mcg tablet 25 mcg PO QAM meloxicam 15 mg tablet 15 mg PO DAILY omeprazole 40 mg capsule,delayed release(DR/EC) 40 mg PO DAILY pravastatin 40 mg tablet 40 mg PO DAILY sildenafil 100 mg tablet 100 mg PO DAILY PRN (Reason: sexual activity) tamsulosin 0.4 mg capsule 0.4 mg PO DAILY warfarin [Jantoven] 5 mg tablet 5 mg PO Rx Instructions: takes on tuesday, and tue per [facility] warfarin [Novtoven] 2.5 mg tablet 2.5 mg PO .4 days a week Rx Instructions: Takes on Tuesday, , and tue per [facility]madin clinic finasteride 5 mg tablet 5 mg PO .qd sodium chloride 1,000 mg Tablet,Soluble 1,000 mg PO TID Qty: 90 0RF atenolol 25 mg Tablet 25 mg PO BID Qty: 60 0RF Print Language: Kuwaiti Instructions: Laceration (ED), Syncope (ED), Head Injury (ED), Abrasion (ED), Staple Care (ED) Additional Instructions: Use topical antibiotic ointment 3-4 times a day to help with wound healing and help prevent infection. Mukesh are to be removed in the next 10 to 12 days. May take a shower tonight. Do not have your head submerged underneath water for the next 2 weeks. Head injury education was discussed at bedside and on discharge paperwork. Continue to increase fluids, water, Gatorade, Powerade Use Tylenol as needed for pain, use Zofran if needed for nausea. Referrals: KYLAH GARCIA [Primary Care Provider] - 1 week Discharge Date/Time: 03/10/24 15:39
--- NOTE | 2024-03-10 17:43 | ECG_ITS ---
The [facility] Test Date: 2024-03-10 Pat Name: INDIANA ZABALA Department: Room: - Gender: Male [employer]: : 1940 Requested By: KYLAH GARCIA Order Number: [id number] Reading MD: NATALEE INMAN Measurements Intervals [place] Rate: 66 P: -[id number] [place]: -[id number] QRS: 0 QRSD: 90 T: 42 QT: 394 QTc: 408 Interpretive Statements 1210 Atrial fibrillation 9140 abnormal rhythm ECG Electronically Signed On 03-12-2024 6:54:27 EDT by NATALEE INMAN
== END 2024-03-10 15:39 | disposition home or self-care (01) ==
PROVIDERS: Emergency Provider Emergency Medicine; PCP Family Medicine
DX: S01.01XA Laceration without foreign body of scalp, initial encounter (principal); S09.8XXA Other specified injuries of head, initial encounter; R55 Syncope and collapse; W19.XXXA Unspecified fall, initial encounter; Z23 Encounter for immunization; Z79.01 Long term (current) use of anticoagulants; Z79.890 Hormone replacement therapy; Z79.899 Other long term (current) drug therapy; I48.0 Paroxysmal atrial fibrillation; E11.9 Type 2 diabetes mellitus without complications; E78.00 Pure hypercholesterolemia, unspecified
CPT/HCPCS: 12001; 36415; 70450; 71045; 72125; 80053; 84484; 85025; 85610; 90471; 90715; 93005; 96360; 96361; 99285

== ENCOUNTER 2024-03-13 09:32 | Outpatient (OUT) | payer OTHER, SELFPAY ==
[2024-03-13 10:11] LABS: Creatinine Urine Random 99.22 mg/dL (20.00-300.00); Protein Creatinine Ratio Urine 0.07; Total Protein Urine Random 6.7 mg/dL (<=11.9)
[2024-03-13 10:33] LABS: Bilirubin Urine NEGATIVE (NEGATIVE); Blood Urine NEGATIVE (NEGATIVE); Clarity Urine CLEAR (CLEAR); Color Urine YELLOW (YELLOW); Glucose Urine UA NEGATIVE (NEGATIVE); Ketones Urine NEGATIVE (NEGATIVE); Leukocyte Esterase Urine NEGATIVE (NEGATIVE); Nitrite Urine NEGATIVE (NEGATIVE); Protein Urine NEGATIVE (NEG/TRACE); Urobilinogen Urine 0.2 EU/dL (0.2-1.0); pH Urine 5.5 (5.0-9.0)
[2024-03-13 10:44] LABS: Albumin Level 3.7 g/dL (3.4-5.0); BUN Creatinine Ratio 10.8; Calcium 9.4 mg/dL (8.5-10.1); Carbon Dioxide 30.6 mmol/L (21.0-32.0); Chloride 103 mmol/L (98-107); Estimated GFR (African America >60 (>=60); Estimated GFR (Non-African Ame >60 (>=60); Glucose 103 mg/dL (74-106); Phosphorus 3.2 mg/dL (2.6-4.7); Potassium 4.6 mmol/L (3.5-5.1); Sodium 140 mmol/L (136-145); Thyroid Stimulating Hormone 2.598 uIU/mL (0.358-3.740)
[2024-03-15 15:10] LABS: Osmolality, Urine 496 mOsmol/kg (.)
== END 2024-03-13 09:33 | disposition home or self-care (01) ==
LOC: LAB 09:33
PROVIDERS: PCP Family Medicine
DX: Z51.81 Encounter for therapeutic drug level monitoring (principal); Z79.01 Long term (current) use of anticoagulants; I48.20 Chronic atrial fibrillation, unspecified; E87.1 Hypo-osmolality and hyponatremia
CPT/HCPCS: 36415; 80069; 81003; 82533; 82570; 83930; 83935; 84156; 84443; 85610; G0463

== ENCOUNTER 2024-03-14 00:14 | Outpatient (RCR) | payer OTHER, SELFPAY | END 2024-04-13 11:08 | disposition home or self-care (01) | LOC: MM 00:14 | PROVIDERS: PCP Family Medicine; Visit Provider Internal Medicine | DX: Z51.81 Encounter for therapeutic drug level monitoring (principal); Z79.01 Long term (current) use of anticoagulants; I48.20 Chronic atrial fibrillation, unspecified | CPT/HCPCS: 85610; G0463 ==

== ENCOUNTER 2024-03-20 15:30 | Outpatient (OUT) | payer OTHER, SELFPAY ==
[2024-03-20 16:12] LABS: Anion Gap 9.4; BUN Creatinine Ratio 11.8; Carbon Dioxide 29.9 mmol/L (21.0-32.0); Chloride 101 mmol/L (98-107); Estimated GFR (African America >60 (>=60); Estimated GFR (Non-African Ame >60 (>=60); Glucose 90 mg/dL (74-106); Potassium 4.3 mmol/L (3.5-5.1); Sodium 136 mmol/L (136-145)
--- NOTE | 2024-03-20 16:25 | XR_ITS ---
The [place] [id number] Patient Name: INDIANA ZABALA MRN: [id number] date: 1940 Sex: M Assigned Patient Location: LAB Current Patient Location: Accession/Order Number: [id number] Exam Date: 03/20/2024 16:15 Report Date: 03/21/2024 07:49 At the request of: KYLAH GARCIA Procedure: XR lumbar spine min 4V EXAMINATION: XR lumbar spine min 4V HISTORY: lumbar pain COMPARISON: No relevant comparison available. FINDINGS: BONES: Anterior wedging T12 and L1 vertebral bodies, endplate sclerosis suggests chronic change. Mild to moderate degenerative spondylosis. Moderate to severe facet osteoarthropathy. 2 mm anterolisthesis of L4 on L5 DISC SPACES: Normal. No significant disc height narrowing, subluxation, or endplate abnormality. PARASPINOUS: Negative. No paraspinous abnormality is seen. OTHER: Moderate vascular calcifications XR/XR lumbar spine min 4V IMPRESSION: Moderate to severe degenerative changes Electronically authenticated by: JOSE ENRIQUE LITTLEJOHN Date: 03/21/2024 07:49
== END 2024-03-20 15:31 | disposition home or self-care (01) ==
PROVIDERS: PCP Family Medicine; Visit Provider Family Medicine
DX: E87.1 Hypo-osmolality and hyponatremia (principal); M51.36 Other intervertebral disc degeneration, lumbar region
CPT/HCPCS: 36415; 72110; 80048

== ENCOUNTER 2024-04-16 00:14 | Outpatient (RCR) | payer OTHER, SELFPAY | END 2024-05-11 09:56 | disposition home or self-care (01) | LOC: MM 00:14 | PROVIDERS: PCP Family Medicine; Visit Provider Internal Medicine | DX: Z51.81 Encounter for therapeutic drug level monitoring (principal); Z79.01 Long term (current) use of anticoagulants; I48.20 Chronic atrial fibrillation, unspecified | CPT/HCPCS: 85610; G0463 ==

== ENCOUNTER 2024-05-14 00:34 | Outpatient (RCR) | payer OTHER, SELFPAY | END 2024-06-13 09:34 | disposition home or self-care (01) | LOC: MM 00:34 | PROVIDERS: PCP Family Medicine; Visit Provider Internal Medicine | DX: Z51.81 Encounter for therapeutic drug level monitoring (principal); Z79.01 Long term (current) use of anticoagulants; I48.20 Chronic atrial fibrillation, unspecified | CPT/HCPCS: 85610; G0463 ==

== ENCOUNTER 2024-06-14 00:16 | Outpatient (RCR) | payer OTHER, SELFPAY | END 2024-07-13 09:15 | disposition home or self-care (01) | LOC: MM 00:16 | PROVIDERS: PCP Family Medicine; Visit Provider Internal Medicine | DX: Z51.81 Encounter for therapeutic drug level monitoring (principal); Z79.01 Long term (current) use of anticoagulants; I48.20 Chronic atrial fibrillation, unspecified | CPT/HCPCS: 85610; G0463 ==

== ENCOUNTER 2024-07-14 19:31 | Emergency (ER) | payer OTHER, SELFPAY ==
[2024-07-14 19:34] VITALS: BP 184/111; PULSE 71; TEMP 36.5; O2SAT 100; BMI 24.3
--- NOTE | 2024-07-14 19:49 | CT_ITS ---
The [address] [address] Patient Name: [place] ZABALA MRN: [id number] date: 1940 Sex: M Assigned Patient Location: ER Current Patient Location: ER Accession/Order Number: [id number] Exam Date: 07/14/2024 20:20 Report Date: 07/14/2024 21:44 At the request of: ANDREWS QUIROGA Procedure: CT abdomen pelvis wo con EXAM: CT abdomen pelvis wo con HISTORY: Left flank pain, low back pain COMPARISON: None. TECHNIQUE: CT abdomen pelvis without contrast. Axial scans with reformatted coronal sagittal images. Individualized dose reduction used for this exam. FINDINGS: Lower chest: No acute process. Cardiac prominence. Small hiatal hernia. ABDOMEN: No renal or ureteral calculus or hydronephrosis. 2.8 cm lesion lower pole right kidney indeterminate. Liver, adrenal glands, pancreas spleen unremarkable. Normal-appearing fluid-filled gallbladder. No ascites or abdominal fluid. No adenopathy. Normal size aorta. Iliac arteries prominent 1.4 cm. No gastric or small bowel or colonic distention. Colonic diverticulosis without diverticulitis. Normal diameter appendix extends from the right pelvis and to a right inguinal hernia, no surrounding inflammation. Pelvis:: Enlarged prostate with heterogeneous appearance. Mass effect on the bladder. Bladder wall prominence could be artifact from under distention. Fat-containing inguinal hernias. Appendix noted in the proximal aspect of the hernia on the right. Bilateral hydroceles. Scrotal calcifications on the right.. 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 Degenerative changes spine without acute abnormality. Calcification adjacent to the initial tuberosities right left consistent with tendinous calcification and tendinopathy. CT/CT abdomen pelvis wo con IMPRESSION: 1. No acute appearing process lower chest abdomen pelvis July 2000 renal or ureteral calculus or hydronephrosis. 3. Colonic diverticulosis without diverticulitis. 4. Fat-containing inguinal hernias. The appendix projects into the proximal aspect of the right inguinal canal without adjacent inflammation or thickening. 5. Abnormal appearance of the scrotum with hydroceles and calcification. 6. Prominent prostate with heterogeneous appearance. Bladder wall thickening could be artifact from under distention. Electronically authenticated by: CARMEN LANCASTER Date: 07/14/2024 21:44
--- NOTE | 2024-07-14 19:51 | ED_ITS ---
Documented by User: ANDERSON Kunz 07/14/24 21:50 HPI HPI - Back Pain/Injury General Chief Complaint: Back Pain/Injury Stated Complaint: BACK PAIN Time Seen by Provider: 07/14/24 19:44 Source: patient Mode of arrival: Wheelchair History of Present Illness HPI Narrative: Patient is an 84-year-old male who presents to the emergency department for the evaluation of low back pain over the last several days. He states he has pain in the bilateral low back, yesterday was on the right side and tonight it is on the left side. He reports pain radiation to the left posterior, superior hip. No falls or injuries. He has seen a chiropractor in the past. He took Tylenol prior to arrival. He has a prescription for [place] at the bedside, he states this is leftover from a previous surgery but he did not take any prior to arrival or for his symptoms in the last several days. He denies any pain radiation to the lower extremities or peripheral paresthesias. He denies any urinary incontinence, hematuria or dysuria. No fevers or vomiting. Related Data Home Medications ?Medication ?Instructions ?Recorded ?Confirmed glimepiride 2 mg tablet 2 mg PO DAILY 08/21/23 03/10/24 levothyroxine 25 mcg tablet 25 mcg PO QAM 08/21/23 03/10/24 meloxicam 15 mg tablet 15 mg PO DAILY 08/21/23 03/10/24 omeprazole 40 mg capsule,delayed 40 mg PO DAILY 08/21/23 03/10/24 release pravastatin 40 mg tablet 40 mg PO DAILY 08/21/23 03/10/24 sildenafil 100 mg tablet 100 mg PO DAILY PRN sexual activity 08/21/23 03/10/24 tamsulosin 0.4 mg capsule 0.4 mg PO DAILY 08/21/23 03/10/24 warfarin 5 mg tablet (Jantoven) 5 mg PO MOWEFR 08/21/23 03/10/24 warfarin 2.5 mg tablet (Jantoven) 2.5 mg PO .4 days a week 08/22/23 03/10/24 finasteride 5 mg tablet 5 mg PO .qd 11/13/23 03/10/24 Previous Rx's ?Medication ?Instructions ?Recorded atenolol 25 mg tablet 25 mg PO BID #60 tabs 11/15/23 sodium chloride 1,000 mg soluble 1,000 mg PO TID #90 tabs 11/15/23 tablet ondansetron 4 mg disintegrating 4 mg PO Q4H PRN nausea and 03/10/24 tablet vomiting 3 days #6 tabs methocarbamol 750 mg tablet 750 mg PO TID PRN pain #20 tabs 07/14/24 Allergies Allergy/AdvReac Type Severity Reaction Status Date / Time No Known Drug Allergies Allergy Verified 08/21/23 15:00 Opioid HPI Opioid Management Most Recent Opioid Data: Last Pain Scale 0 11/13/23 11:48 Last ED Pain Assessment 07/14/24 21:31 Ur Phencyclidine Scrn Negative (NEGATIVE) 08/21/23 03:22 Review of Systems ROS Constitutional Denies: fever or chills Ears, nose, mouth, and throat Denies: throat pain Respiratory Denies: shortness of breath Gastrointestinal Denies: abdominal pain, nausea or vomiting Genitourinary Denies: painful urination or urinary frequency Musculoskeletal Reports: back pain; Denies: neck pain, extremity pain or extremity swelling Integumentary/Breast Denies: rash Neurological Denies: numbness in extremities or weakness in extremities Endocrine Denies: excessive urination Hematologic/Lymphatic Denies: easy bruising or easy bleeding [facility] Medical History (Updated 07/14/24 @ 21:46 by ANDERSON Kunz) Hyponatremia ?E87.1 - Hypo-osmolality and hyponatremia (ICD-10) Hypomagnesemia ?E83.42 - Hypomagnesemia (ICD-10) RADHA (acute kidney injury) ?N17.9 - Acute kidney failure, unspecified (ICD-10) Paroxysmal atrial fibrillation ?I48.0 - Paroxysmal atrial fibrillation (ICD-10) Type 2 diabetes mellitus with hyperglycemia ?E11.65 - Type 2 diabetes mellitus with hyperglycemia (ICD-10) Influenza ?J11.1 - Influenza due to unidentified influenza virus with other respiratory manifestations (ICD-10) Hypomagnesemia ?E83.42 - Hypomagnesemia (ICD-10) Acute hyponatremia ?E87.1 - Hypo-osmolality and hyponatremia (ICD-10) Acute confusion ?R41.0 - Disorientation, unspecified (ICD-10) Diabetes ?E11.9 - Type 2 diabetes mellitus without complications (ICD-10) High cholesterol ?E78.00 - Pure hypercholesterolemia, unspecified (ICD-10) Atrial fibrillation ?I48.91 - Unspecified atrial fibrillation (ICD-10) Family History (Updated 11/13/23 @ 14:03 by Ashwini Ramirez RN) Father Family history of myocardial infarction Family history of hypertension Mother Family history of cancer Family history of diabetes mellitus Social History Within the past year, how often did you have a drink containing alcohol: 2-4 times a month Smoking status: Never smoker Highest level of school completed/degree received: high school graduate Gender Identity: male Exam Narrative Exam Narrative: Gen.: Awake, alert, in no distress Head: Normocephalic, atraumatic ENT: Moist mucous membranes Respiratory: No respiratory distress Gastrointestinal: Abdomen is soft, nondistended and nontender to palpation Back: No midline spinal tenderness or obvious deformity. Diffuse minimal tenderness of the left paraspinal muscles of the lumbar spine. No step-off. Extremities: Moves extremities equally, no injuries noted; patient is noted to be moving his legs without difficulty, able to transfer and stand at the bedside normal dorsiflexion and plantarflexion with no decrease in sensation to the medial thighs; Psych: Normal mood and affect Neuro: No focal neuro deficit Skin: Warm, dry, intact Constitutional Vital Signs, click to edit/add: Last Vital Signs Temp 97.7 F 07/14/24 19:34 Pulse 96 H 07/14/24 22:35 Resp 18 07/14/24 22:35 BP 150/91 H 07/14/24 22:35 Pulse Ox 96 07/14/24 22:35 Course Vital Signs Vital signs: Vital Signs Temperature 97.7 F 07/14/24 19:34 Pulse Rate 71 07/14/24 19:34 Respiratory Rate 20 07/14/24 19:34 Blood Pressure 184/111 H 07/14/24 19:34 Pulse Oximetry 100 07/14/24 19:34 Temperature 97.7 F 07/14/24 19:34 Pulse Rate 96 H 07/14/24 22:35 Respiratory Rate 18 07/14/24 22:35 Blood Pressure 150/91 H 07/14/24 22:35 Pulse Oximetry 96 07/14/24 22:35 MDM - Back Pain/Injury MDM Narrative Medical decision making narrative: Patient was initially given Solu-Medrol as he stated he drove himself to the ER and plan to drive home. IV was established, labs drawn and urine specimen obtained all within normal limits. Patient continued to have moderate pain and called his neighbor who he states will be able to come pick him up so he was given IV fentanyl, Zofran and Robaxin for pain. 2147: Patient has minimal improvement with these medications and was remedicated with Dilaudid 0.[address] of the abdomen and pelvis with no acute process. Case is turned over to attending physician to reevaluate pain and disposition SHARED APC VISIT, PHYSICIAN ATTESTATION: [id number] I performed a substantive part of the MDM during the patient?s E/M visit. I personally evaluated and examined the patient. I personally made or approved the documented management plan and acknowledge its risk of complications. Medical Records Attestation: I reviewed the patient's medical records. Lab Data Attestation: I reviewed the patient's lab results. Labs: Lab Results 07/14/24 07/14/24 Range/Units 20:20 20:21 WBC 5.2 (4.0-11.0) 10^3/uL RBC 4.56 L (4.70-6.10) 10^6/uL Hgb 14.0 (14.0-18.0) g/dL Hct 40.3 L (42.0-54.0) % MCV 88.4 (80.0-94.0) fL MCH 30.7 (25.9-34.0) pg MCHC 34.7 (29.9-35.2) g/dL RDW 13.2 (11.0-15.0) % Plt Count 171 (150-450) 10^3/uL MPV 11.7 (9.5-13.5) fL Neut % (Auto) 42.7 L (43.0-75.0) % Lymph % (Auto) 45.7 (20.5-60.0) % George % (Auto) 7.7 (1.7-12.0) % Eos % (Auto) 2.7 (0.9-7.0) % Baso % (Auto) 1.0 (0.2-2.0) % Neut # (Auto) 2.2 (1.4-6.5) 10^3/uL Lymph # (Auto) 2.4 (1.2-3.8) 10^3/uL George # (Auto) 0.4 (0.3-0.8) 10^3/uL Eos # (Auto) 0.1 (0.0-0.7) 10^3/uL Baso # (Auto) 0.1 (0.0-0.1) 10^3/uL Abs Immat Gran (auto) 0.01 (0.00-0.03) 10^3/uL Imm/Tot Granulo (auto) 0.2 (0.0-0.5) % PT 26.6 H (9.0-11.6) sec INR 2.78 Sodium 136 (136-145) mmol/L Potassium 4.3 (3.5-5.1) mmol/L Chloride 100 (98-107) mmol/L Carbon Dioxide 25.7 (21.0-32.0) mmol/L Anion Gap 14.6 BUN 12.0 (7.0-18.0) mg/dL Creatinine 1.02 (0.70-1.30) mg/dL Est GFR ( Amer) >60 (>=60) Est GFR (Non-Af Amer) >60 (>=60) BUN/Creatinine Ratio 11.8 Glucose 93 (74-106) mg/dL Lactate 2.0 (0.4-2.0) mmol/L Calcium 9.2 (8.5-10.1) mg/dL Total Bilirubin 0.7 (0.2-1.0) mg/dL AST 28 (15-37) U/L ALT 24 (16-63) U/L Alkaline Phosphatase 90 (46-116) U/L Total Protein 7.5 (6.4-8.2) g/dL Albumin 4.1 (3.4-5.0) g/dL Globulin 3.4 g/dL Albumin/Globulin Ratio 1.2 Urine Color Lt. yellow (YELLOW) Urine Clarity Clear (CLEAR) Urine pH 6.0 (5.0-9.0) Ur Specific [place] 1.020 (1.005-1.025) Urine Protein Negative (NEG/TRACE) mg/dL Urine Glucose (UA) Negative (NEGATIVE) mg/dL Urine Ketones Negative (NEGATIVE) mg/dL Urine Occult Blood Negative (NEGATIVE) Urine Nitrite Negative (NEGATIVE) Urine Bilirubin Negative (NEGATIVE) Urine Urobilinogen 0.2 (0.2-1.0) EU/dL Ur Leukocyte Esterase Negative (NEGATIVE) Imaging Data CT scan - abdomen: Attestation: I have reviewed the pertinent imaging results. Radiologist's impression: ITS Impressions Abdomen/Pelvis CT 07/14/24 19:49 IMPRESSION: 1. No acute appearing process lower chest abdomen pelvis July 2000 renal or ureteral calculus or hydronephrosis. 3. Colonic diverticulosis without diverticulitis. 4. Fat-containing inguinal hernias. The appendix projects into the proximal aspect of the right inguinal canal without adjacent inflammation or thickening. 5. Abnormal appearance of the scrotum with hydroceles and calcification. 6. Prominent prostate with heterogeneous appearance. Bladder wall thickening could be artifact from under distention. Electronically authenticated by: CARMEN LANCASTER Date: 07/14/2024 21:44 Discharge Plan Discharge Stand Alone Forms: Work/School Release, Portal Instructions Chief Complaint: Back Pain/Injury Clinical Impression: Low back pain Patient Disposition: Home, Self-Care Prescriptions / Home Meds: New methocarbamol 750 mg tablet 750 mg PO TID PRN (Reason: pain) Qty: 20 0RF No Action glimepiride 2 mg tablet 2 mg PO DAILY levothyroxine 25 mcg tablet 25 mcg PO QAM meloxicam 15 mg tablet 15 mg PO DAILY omeprazole 40 mg capsule,delayed release(DR/EC) 40 mg PO DAILY pravastatin 40 mg tablet 40 mg PO DAILY sildenafil 100 mg tablet 100 mg PO DAILY PRN (Reason: sexual activity) tamsulosin 0.4 mg capsule 0.4 mg PO DAILY warfarin [Jantoven] 5 mg tablet 5 mg PO MOWE Rx Instructions: takes on tuesday, and tue [facility] warfarin [Jantoven] 2.5 mg tablet 2.5 mg PO .4 days a week Rx Instructions: Takes on Tuesday, , and tue per [facility] clinic finasteride 5 mg tablet 5 mg PO .qd sodium chloride 1,000 mg Tablet,Soluble 1,000 mg PO TID Qty: 90 0RF atenolol 25 mg Tablet 25 mg PO BID Qty: 60 0RF ondansetron 4 mg tablet,disintegrating 4 mg PO Q4H PRN (Reason: nausea and vomiting) 3 Days Qty: 6 0RF Print Language: Serbian Instructions: Acute Low Back Pain (ED) Referrals: KYLAH GARCIA [Primary Care Provider] - 1 week Documented by User: Luan Guzman MD 07/14/24 22:40 HPI HPI - Back Pain/Injury General Chief Complaint: Back Pain/Injury Stated Complaint: BACK PAIN Time Seen by Provider: 07/14/24 19:44 Related Data Home Medications ?Medication ?Instructions ?Recorded ?Confirmed glimepiride 2 mg tablet 2 mg PO DAILY 08/21/23 03/10/24 levothyroxine 25 mcg tablet 25 mcg PO QAM 08/21/23 03/10/24 meloxicam 15 mg tablet 15 mg PO DAILY 08/21/23 03/10/24 omeprazole 40 mg capsule,delayed 40 mg PO DAILY 08/21/23 03/10/24 release pravastatin 40 mg tablet 40 mg PO DAILY 08/21/23 03/10/24 sildenafil 100 mg tablet 100 mg PO DAILY PRN sexual activity 08/21/23 03/10/24 tamsulosin 0.4 mg capsule 0.4 mg PO DAILY 08/21/23 03/10/24 warfarin 5 mg tablet (Jantoven) 5 mg PO MOWEFR 08/21/23 03/10/24 warfarin 2.5 mg tablet (Jantoven) 2.5 mg PO .4 days a week 08/22/23 03/10/24 finasteride 5 mg tablet 5 mg PO .qd 11/13/23 03/10/24 Previous Rx's ?Medication ?Instructions ?Recorded atenolol 25 mg tablet 25 mg PO BID #60 tabs 11/15/23 sodium chloride 1,000 mg soluble 1,000 mg PO TID #90 tabs 11/15/23 tablet ondansetron 4 mg disintegrating 4 mg PO Q4H PRN nausea and 03/10/24 tablet vomiting 3 days #6 tabs methocarbamol 750 mg tablet 750 mg PO TID PRN pain #20 tabs 07/14/24 Allergies Allergy/AdvReac Type Severity Reaction Status Date / Time No Known Drug Allergies Allergy Verified 08/21/23 15:00 Opioid HPI Opioid Management Most Recent Opioid Data: Last Pain Scale 0 11/13/23 11:48 Last ED Pain Assessment 07/14/24 21:31 Ur Phencyclidine Scrn Negative (NEGATIVE) 08/21/23 03:22 PFSH PFSH Medical History (Updated 07/14/24 @ 21:46 by ANDERSON Kunz) Hyponatremia ?E87.1 - Hypo-osmolality and hyponatremia (ICD-10) Hypomagnesemia ?E83.42 - Hypomagnesemia (ICD-10) RADHA (acute kidney injury) ?N17.9 - Acute kidney failure, unspecified (ICD-10) Paroxysmal atrial fibrillation ?I48.0 - Paroxysmal atrial fibrillation (ICD-10) Type 2 diabetes mellitus with hyperglycemia ?E11.65 - Type 2 diabetes mellitus with hyperglycemia (ICD-10) Influenza ?J11.1 - Influenza due to unidentified influenza virus with other respiratory manifestations (ICD-10) Hypomagnesemia ?E83.42 - Hypomagnesemia (ICD-10) Acute hyponatremia ?E87.1 - Hypo-osmolality and hyponatremia (ICD-10) Acute confusion ?R41.0 - Disorientation, unspecified (ICD-10) Diabetes ?E11.9 - Type 2 diabetes mellitus without complications (ICD-10) High cholesterol ?E78.00 - Pure hypercholesterolemia, unspecified (ICD-10) Atrial fibrillation ?I48.91 - Unspecified atrial fibrillation (ICD-10) Family History (Updated 11/13/23 @ 14:03 by Ashwini Ramirez RN) Father Family history of myocardial infarction Family history of hypertension Mother Family history of cancer Family history of diabetes mellitus Social History Within the past year, how often did you have a drink containing alcohol: 2-4 times a month Smoking status: Never smoker Highest level of school completed/degree received: high school graduate Gender Identity: male Exam Constitutional Vital Signs, click to edit/add: Last Vital Signs Temp 97.7 F 07/14/24 19:34 Pulse 96 H 08/31/24 22:35 Resp 18 07/14/24 22:35 BP 150/91 H 07/14/24 22:35 Pulse Ox 96 07/14/24 22:35 Course Vital Signs Vital signs: Vital Signs Temperature 97.7 F 07/14/24 19:34 Pulse Rate 71 07/14/24 19:34 Respiratory Rate 20 07/14/24 19:34 Blood Pressure 184/111 H 07/14/24 19:34 Pulse Oximetry 100 07/14/24 19:34 Temperature 97.7 F 07/14/24 19:34 Pulse Rate 96 H 07/14/24 22:35 Respiratory Rate 18 07/14/24 22:35 Blood Pressure 150/91 H 07/14/24 22:35 Pulse Oximetry 96 07/14/24 22:35 MDM - Back Pain/Injury MDM Narrative Medical decision making narrative: Patient was initially given Solu-Medrol as he stated he drove himself to the ER and plan to drive home. IV was established, labs drawn and urine specimen obtained all within normal limits. Patient continued to have moderate pain and called his neighbor who he states will be able to come pick him up so he was given IV fentanyl, Zofran and Robaxin for pain. 2148: Patient has minimal improvement with these medications and was remedicated with Dilaudid 0.[address] of the abdomen and pelvis with no acute process. Case is turned over to attending physician to reevaluate pain and disposition patient is feeling better and pain is now tolerable. Discharged to follow up with his doctor. SHARED APC VISIT, PHYSICIAN ATTESTATION: [id number] I performed a substantive part of the MDM during the patient?s E/M visit. I personally evaluated and examined the patient. I personally made or approved the documented management plan and acknowledge its risk of complications. Lab Data Labs: Lab Results 07/14/24 07/14/24 Range/Units 20:20 20:21 WBC 5.2 (4.0-11.0) 10^3/uL RBC 4.56 L (4.70-6.10) 10^6/uL Hgb 14.0 (14.0-18.0) g/dL Hct 40.3 L (42.0-54.0) % MCV 88.4 (80.0-94.0) fL MCH 30.7 (25.9-34.0) pg MCHC 34.7 (29.9-35.2) g/dL RDW 13.2 (11.0-15.0) % Plt Count 171 (150-450) 10^3/uL MPV 11.7 (9.5-13.5) fL Neut % (Auto) 42.7 L (43.0-75.0) % Lymph % (Auto) 45.7 (20.5-60.0) % George % (Auto) 7.7 (1.7-12.0) % Eos % (Auto) 2.7 (0.9-7.0) % Baso % (Auto) 1.0 (0.2-2.0) % Neut # (Auto) 2.2 (1.4-6.5) 10^3/uL Lymph # (Auto) 2.4 (1.2-3.8) 10^3/uL George # (Auto) 0.4 (0.3-0.8) 10^3/uL Eos # (Auto) 0.1 (0.0-0.7) 10^3/uL Baso # (Auto) 0.1 (0.0-0.1) 10^3/uL Abs Immat Gran (auto) 0.01 (0.00-0.03) 10^3/uL Imm/Tot Granulo (auto) 0.2 (0.0-0.5) % PT 26.6 H (9.0-11.6) sec INR 2.78 Sodium 136 (136-145) mmol/L Potassium 4.3 (3.5-5.1) mmol/L Chloride 100 (98-107) mmol/L Carbon Dioxide 25.7 (21.0-32.0) mmol/L Anion Gap 14.6 BUN 12.0 (7.0-18.0) mg/dL Creatinine 1.02 (0.70-1.30) mg/dL Est GFR ( Amer) >60 (>=60) Est GFR (Non-Af Amer) >60 (>=60) BUN/Creatinine Ratio 11.8 Glucose 93 (74-106) mg/dL Lactate 2.0 (0.4-2.0) mmol/L Calcium 9.2 (8.5-10.1) mg/dL Total Bilirubin 0.7 (0.2-1.0) mg/dL AST 28 (15-37) U/L ALT 24 (16-63) U/L Alkaline Phosphatase 90 (46-116) U/L Total Protein 7.5 (6.4-8.2) g/dL Albumin 4.1 (3.4-5.0) g/dL Globulin 3.4 g/dL Albumin/Globulin Ratio 1.2 Urine Color Lt. yellow (YELLOW) Urine Clarity Clear (CLEAR) Urine pH 6.0 (5.0-9.0) Ur Specific [place] 1.020 (1.005-1.025) Urine Protein Negative (NEG/TRACE) mg/dL Urine Glucose (UA) Negative (NEGATIVE) mg/dL Urine Ketones Negative (NEGATIVE) mg/dL Urine Occult Blood Negative (NEGATIVE) Urine Nitrite Negative (NEGATIVE) Urine Bilirubin Negative (NEGATIVE) Urine Urobilinogen 0.2 (0.2-1.0) EU/dL Ur Leukocyte Esterase Negative (NEGATIVE) Imaging Data CT scan - abdomen: Radiologist's impression: ITS Impressions Abdomen/Pelvis CT 07/14/24 19:49 IMPRESSION: 1. No acute appearing process lower chest abdomen pelvis July 2000 renal or ureteral calculus or hydronephrosis. 3. Colonic diverticulosis without diverticulitis. 4. Fat-containing inguinal hernias. The appendix projects into the proximal aspect of the right inguinal canal without adjacent inflammation or thickening. 5. Abnormal appearance of the scrotum with hydroceles and calcification. 6. Prominent prostate with heterogeneous appearance. Bladder wall thickening could be artifact from under distention. Electronically authenticated by: CARMEN LANCASTER Date: 07/14/2024 21:44 Discharge Plan Discharge Stand Alone Forms: Work/School Release, Portal Instructions Chief Complaint: Back Pain/Injury Clinical Impression: Low back pain Patient Disposition: Home, Self-Care Prescriptions / Home Meds: New methocarbamol 750 mg tablet 750 mg PO TID PRN (Reason: pain) Qty: 20 0RF No Action glimepiride 2 mg tablet 2 mg PO DAILY levothyroxine 25 mcg tablet 25 mcg PO QAM meloxicam 15 mg tablet 15 mg PO DAILY omeprazole 40 mg capsule,delayed release(DR/EC) 40 mg PO DAILY pravastatin 40 mg tablet 40 mg PO DAILY sildenafil 100 mg tablet 100 mg PO DAILY PRN (Reason: sexual activity) tamsulosin 0.4 mg capsule 0.4 mg PO DAILY warfarin [Novtoven] 5 mg tablet 5 mg PO Rx Instructions: takes on tuesday, and tue [facility] warfarin [Novtoven] 2.5 mg tablet 2.5 mg PO .4 days a week Rx Instructions: Takes on Tuesday, , and tue per [facility] clinic finasteride 5 mg tablet 5 mg PO .qd sodium chloride 1,000 mg Tablet,Soluble 1,000 mg PO TID Qty: 90 0RF atenolol 25 mg Tablet 25 mg PO BID Qty: 60 0RF ondansetron 4 mg tablet,disintegrating 4 mg PO Q4H PRN (Reason: nausea and vomiting) 3 Days Qty: 6 0RF Print Language: Serbian Instructions: Acute Low Back Pain (ED) Referrals: KYLAH GARCIA [Primary Care Provider] - 1 week
--- OUTSIDE RECORDS SUMMARY | 2024-07-14 19:56 | XMS_ITS ---
Author Name Auto Generated Organization [facility] Care Team Providers Care Staffing Director Name Role Phone AXEL HERNÁNDEZ Referring Unavailable HERNÁNDEZ, AXEL Smalls Referring Unavailable HERNÁNDEZ, AXEL Smalls Attending Unavailable KYLAH GARCIA Referring Unavailable AXEL HERNÁNDEZ Attending Unavailable EDGAR, AXEL Smalls Referring Unavailable HERNÁNDEZ, AXEL Smalls Attending Unavailable HERNÁNDEZ, AXEL Smalls Referring Unavailable Rene Jada A Attending Unavailable Rene, Jada A Admitting Unavailable Rene, Jada A Primary Care Unavailable Rene, Jada A Attending Unavailable Rene, Jada A Admitting Unavailable Rene, Jada A Primary Care Unavailable MD Kylah Garcia Admitting Unavailable MD Kylah Garcia Attending Unavailable MD Kylah Garcia Attending Unavailable MD Kylah Garcia Attending Unavailable MD Kylah Garcia Attending Unavailable Axel Hernández Admitting Unavailable Hernández, Axel Smalls Attending Unavailable Axel Hernández Referring Unavailable MD Kashif Barnett Referring Unavailable MD Kashif Barnett Admitting Unavailable MD Kashif Barnett Attending Unavailable MD Kylah Garcia Attending Unavailable MD Kylah Garcia Attending Unavailable MD Kashif Barnett Referring Unavailable MD Kashif Barnett Admitting Unavailable MD Kashif Barnett Attending Unavailable Jason Vaughn. Consulting Unavaila Jason Chase. Consulting Unavaila Jason Chase. Consulting Unavaila MD Kylah Choudhury Attending Unavailable MD Kylah Garcia Attending Unavailable MD Kylah Garcia Attending Unavailable MD Kylah Garcia Attending Unavailable MD Kylah Garcia Admitting Unavailable MD Kylah Garcia Admitting Unavailable MD Kylah Garcia Attending Unavailable Axel Hernández Admitting Unavailable Axel Hernández Attending Unavailable Axel Hernández Referring Unavailable MD Kashif Barnett Attending Unavailable MD Kylah Garcia Referring Unavailable LALITHA Dubose Admitting Unavailable LALITHA Dubose Attending Unavailable MD Kylah Garcia Referring Unavailable MD Kashif Barnett Attending Unavailable MD Kashif Barnett Admitting Unavailable NONE, XXXX Referring Unavailable PROBLEMS DATE TYPE CONDITION / CODE ATTENDING STATUS [facility] 11/02/2023 Unknown Encounter for sc reening for malignant neoplasm of prostate / CE(ICD-10) ReneJada [facility] 06/16/2023 Unknown retirement (curre nt) use of anticoagulants / CE(ICD-10) Jada Rene [facility] PROCEDURES No Procedure Records Found RESULTS FAMILY MEDICINE OFFICE/CLINIC NOTE Observed: 07/03/2024 10:27 AM Status: F Source: [facility] REPOSITORY Family Medicine Office/Clini c Note HPI Staff Dariel is an 84 year old male presenting for acute visit Acute: bump in right groin and wants his ears flushed, says he can't hear Has hearing aids in. says he's got pressure in his ears. Onset: found the bump in right groin for about a week or more felt he should get it checked. No pain, doesn't even notice it's there unless he's showering or urinating and sometimes it down to nothing, today it's the size of an egg. questions/concerns: needs his gabapentin refilled will need to do a consent Brought in a bottle of hydrocodone acet he filled but never took and wants to know if okay to take them History of Present Illness - Pt is here for follow up. - See staff HPI. Review of Systems PHQ Score Initial Depression Screen Score: 0 SCORE Physical Exam Vitals & Measurements T: 36.0 ?C(Temporal Artery) HR: 58(Peripheral) RR: 16 BP: 122/80 SpO2: 100% HT: 70 in HT: 178 cm WT: 80.8 kg WT: 177.76 lb BMI: 25.5 General: alert, no acute distress ENMT: oral mucosa moist, Cardiovascular: regular rate and rhythm, normal peripheral perfusion Respiratory: Lungs CTA, respirations non labored Extremities: no deformity, no trauma Neurological: oriented x 4, LOC appropriate for age, CN II-XII intact, motor strength equal & normal bilaterally, speech normal Abdomen: Soft, Nontender, Non-distended, + BS - Pt has a Hernia in the L inguinal canal. Not able to reduce. No signs of infection. Assessment/Plan 1. Serous otitis media (H65.90: Unspecified nonsuppurative otitis media, unspecified ear) - Benadryl and Flonase advised. - Low dose Benadryl of 12.5mg. Fall precautions discussed. Ordered: US Extremity Non-Vascular Limited Left 2. Carpal tunnel syndrome, left (G56.02: Carpal tunnel syndrome, left upper limb) - Will refill the gabapentin today Ordered: Body Mass Index (BMI) documented 3008F Current tobacco non-user 1036F Depression Screening Negative 3352F Influenza immunization administered or previously received 4274F Most recent diastolic blood pressure 80-89 mm Hg 3079F Patient screen for fall risk: no falls in last year or 1 fall with no injury in last year 1101F Systolic BP <130 mm Hg (Most Recent) 3074F US Extremity Non-Vascular Limited Left 3. Erectile dysfunction due to arterial insufficiency (N52.01: Erectile dysfunction due to arterial insufficiency) - Will refill today. Ordered: Body Mass Index (BMI) documented 3008F Current tobacco non-user 1036F Depression Screening Negative 3352F Influenza immunization administered or previously received 4274F Most recent diastolic blood pressure 80-89 mm Hg 3079F Patient screen for fall risk: no falls in last year or 1 fall with no injury in last year 1101F Systolic BP <130 mm Hg (Most Recent) 3074F US Extremity Non-Vascular Limited Left 4. Hard of hearing (H91.90: Unspecified hearing loss, unspecified ear) - Ears are WNL except for fluid behind the TM Ordered: Body Mass Index (BMI) documented 3008F Current tobacco non-user 1036F Depression Screening Negative 3352F Influenza immunization administered or previously received 4274F Most recent diastolic blood pressure 80-89 mm Hg 3079F Patient screen for fall risk: no falls in last year or 1 fall with no injury in last year 1101F Systolic BP <130 mm Hg (Most Recent) 3074F US Extremity Non-Vascular Limited Left 5. Inguinal hernia of left side without obstruction or gangrene (K40.90: Unilateral inguinal hernia, without obstruction or gangrene, not specified as recurrent) - Will do an U/S to prove. - Referral to Gen Surgery - Precautions discussed in detail. Ordered: US Extremity Non-Vascular Limited Left Orders: fluticasone nasal, 1 spray(s), Nasal, BID, 16 gram, Refill(s) 0, each nostril, [facility]/pharmacy #[id number], 178, cm, 07/03/24 10:05:00 EDT, Height/Length Dosing, 80.8, kg, 07/03/24 10:05:00 EDT, Weight Dosing gabapentin, 300 mg = 1 cap(s), Oral, Daily, # 90 cap(s), Refills(s) 1, [facility] [employer] [facility], 178, cm, 07/03/24 10:05:00 EDT, Height/Length Dosing, 80.8, kg, 07/03/24 10:05:00 EDT, Weight Dosing omeprazole, 40 mg = 1 cap(s), Oral, Daily, # 90 cap(s), Refills(s) 0, Pharmacy: [facility], 178.2, cm, 02/02/24 10:29:00 EDT, Height/Length Dosing, 84.1, kg, 02/02/24 10:29:00 EDT, Weight Dosing sildenafil, 100 mg = 1 tab(s), Oral, Daily, PRN for erectile dysfunction, 1 hour before sexual activity, # 5 tab(s), Refills(s) 0, Pharmacy: [facility], 178, cm, 07/03/24 10:05:00 EDT, Height/Length Dosing, 80.8, kg, 07/03/24 10:05:00 EDT,... Follow-up No qualifying data available Problem List/Past Medical History Ongoing ASCVD (arteriosclerotic cardiovascular disease) Carpal tunnel syndrome, left DM type 2 causing vascular disease Encounter for surveillance of abnormal nevi Erectile dysfunction due to arterial insufficiency Fall at home Hard of hearing Hyperlipidemia Inguinal hernia of left side without obstruction or gangrene Longstanding persistent atrial fibrillation Osteoarthritis Serous otitis media Syncope Trigger finger Historical Body mass index (BMI) of 25.0-25.9 in adult Procedure/Surgical History Carpal tunnel release (03/26/2024), Carpal tunnel release, Surgery. Medications atenolol 25 mg Tab, See Instructions, 5 refills CoQ10 D3, See Instructions finasteride 5 mg Tab, 5 mg= 1 tab(s), Oral, Daily, 1 refills Flonase 0.05 mg/inh Burchard, 1 spray(s), Nasal, BID gabapentin 300 mg Cap, 300 mg= 1 cap(s), Oral, Daily, 1 refills glimepiride 2 mg Tab, 2 mg= 1 tab(s), Oral, Daily, 1 refills Jantoven 5 mg oral tablet, 5 mg= 1 tab(s), Oral, Daily levothyroxine 25 mcg (0.025 mg) Tab, 25 mcg= 1 tab(s), Oral, Daily, 1 refills pravastatin 40 mg Tab, See Instructions sildenafil 100 mg Tab, 100 mg= 1 tab(s), Oral, Daily, PRN Sodium Chloride 1 g oral tablet, See Instructions tamsulosin 0.4 mg Cap, 0.4 mg= 1 cap(s), Oral, Daily Turmeric 500 mg oral capsule Vitamin B12 Vitamin D3 5000 intl units (125 mcg) oral tab, 125 mcg= 1 tab(s), Oral, Daily Allergies No Known Medication Allergies Social History Alcohol - Low Risk, 05/03/2024 Current, Liquor, 1-2 times per month, 1 drinks/episode average. Previous treatment: None. Alcohol use interferes with work or home: No. Drinks more than intended: No. Others hurt by drinking: No. Ready to change: No. Household alcohol concerns: No., 05/03/2024 Substance Abuse - Denies Substance Abuse, 03/06/2024 Tobacco - Denies Tobacco Use, 05/03/2024 Never (less than 100 in lifetime) Tobacco Use:. Never Smokeless Tobacco Use:., 07/03/2024 Family History Diabetes mellitus type 2: Mother. Immunizations Vaccine Date Status pneumococcal 20-valent conjugate vaccine 09/21/2023 Recorded influenza virus vaccine, inactivated 08/19/2023 Recorded pneumococcal 13-valent vaccine 03/31/2015 Recorded influenza virus vaccine, inactivated 08/02/2014 Recorded Result Comment: Electronical ly Signed By: Kylah Garcia MD\.br\Date and Time Signed: 07/03/24 10:27 EDT AMBULATORY VISIT SUMMARY Observed: 07/03 10:21 AM Status: F Source: [facility] REPOSITORY Ambulatory Visit Summary DARIEL AGUILERA :1940 Visit Date:07/03/2024 Ambulatory Visit Instructions Your Diagnosis Serous otitis media Carpal tunnel syndrome, left Erectile dysfunction due to arterial insufficiency Hard of hearing Inguinal hernia of left side without obstruction or gangrene Your Care Team Attending Physician - Kylah Garcia MD Primary Care Physician - Kylah Garcia MD This Is Your Medications List Turmeric (Turmeric 500 mg oral capsule) atenolol (atenolol 25 mg Tab) cholecalciferol (D3) cholecalciferol (Vitamin D3 5000 intl units (125 [...] mg oral tablet) Procedures Performed Carpal tunnel release (03/26/2024), Carpal tunnel release, Surgery. Discharge Vitals Temperature (Temporal Artery) 36.0 ?C Heart Rate (Peripheral) 58 Respiratory Rate 16 Blood Pressure 122/80 Height 178 cm Height 70 in Weight 80.8 kg Weight 177.76 lb BMI 25.5 What to do next Scheduled Follow-Up Appointments 2023 9:15 AM EST With: Adam COHN, Kylah Coel Where: [address] [address]- Tuesday 1:00 PM EST With: Dixon Dubose PA-C Where: [facility] 2024 8:00 AM EDT With: Where: [address] [address]- Medications What How Much When Instructions Unchanged atenolol (atenolol 25 mg Tab) See instructions take 1/ 2 tab daily Unchanged cholecalciferol (D3) See instructions Oral Daily- patient states he takes 500 once a day Unchanged cholecalciferol (Vitamin D3 5000 intl units (125 mcg) oral tab) 1 Tablets By Mouth Every day Unchanged cyanocobalamin (Vitamin B12) Unchanged finasteride (finasteride 5 mg Tab) 1 Tablets By Mouth Every day Unchanged gabapentin (gabapentin 300 mg Cap) 1 Capsules By Mouth Every day Unchanged glimepiride (glimepiride 2 mg Tab) 1 Tablets By Mouth Every day Unchanged levothyroxine (levothyroxine 25 mcg (0.025 mg) Tab) 1 Tablets By Mouth Every day on an empty stomach Unchanged pravastatin (pravastatin 40 mg Tab) See instructions TAKE 1 TABLET DAILY Unchanged sildenafil (sildenafil 100 mg Tab) 1 Tablets By Mouth Every day as needed for for erectile dysfunction 1 hour before sexual activity Unchanged sodium chloride (Sodium Chloride 1 g oral tablet) See instructions 1 gram orally daily Unchanged tamsulosin (tamsulosin 0.4 mg Cap) 1 Capsules By Mouth Every day Unchanged Turmeric (Turmeric 500 mg oral capsule) Unchanged ubiquinone (CoQ10) Unchanged warfarin (Jantoven 5 mg oral tablet) 1 Tablets By Mouth Every day Allergies No Known Medication Allergies Problems Ongoing - Any problem that you are currently receiving treatment for. ASCVD (arteriosclerotic cardiovascular disease) Carpal tunnel syndrome, left DM type 2 causing vascular disease Encounter for surveillance of abnormal nevi Erectile dysfunction due to arterial insufficiency Fall at home Hard of hearing Hyperlipidemia Inguinal hernia of left side without obstruction or gangrene Longstanding persistent atrial fibrillation Osteoarthritis Serous otitis media Syncope Trigger finger Historical - Any problem that you are no longer receiving treatment for. Body mass index (BMI) of 25.0-25.9 in adult Patient Survey You may receive a survey via text or e-mail asking about your office visit. Please share your experience with us by completing your survey. We appreciate your feedback and thank you for choosing us for your care. HEART AND VASCULAR OFFICE/CLINIC NOTE Observed: 06/11/2024 1:14 PM Status: F Source: [facility] REPOSITORY Heart and Vascular Office/Cl inic Note Chief Complaint f/u has questions about his health History of Present Illness The patient is an 84-year-old male who was seen by myself in the beginning of April due to syncope and collapse. His cardiac workup included Holter monitor which showed well-controlled atrial fibrillation. Transthoracic echocardiogram showed normal LVEF with mildly enlarged right ventricle, moderate TR, mildly dilated ascending aorta. Due to nonrevealing noninvasive workup, loop recorder was recommended. The patient presents today with multiple questions about the procedure. He is feeling about the same. Reports no syncope or presyncope. Review of Systems ROS - Provider Constitutional: no fever, no chills, no fatigue Skin:no rash, no lesions ENMT: no ear pain, no sore throat, no congestion. Respiratory: no shortness of breath, no cough, no wheezing. Cardiovascular: no chest pain, no palpitations, no edema. Gastrointestinal: no nausea, no vomiting, no diarrhea, no GI bleeding. Genitourinary: no dysuria, no frequencyno hematuria Musculoskeletal: no back pain, no trauma. Neurologic: no headache, no dizziness, no numbness, no weakness. Psychiatric: no sleeping problems, no irritability, no mood swings/depression. Heme/Lymph: no bleeding tendency, no bruising tendency, no petechiae, Allergy/Immuno logic: no seasonal allergies, no food allergies, no recurrent infections Physical Exam Vitals & Measurements HR: 70(Peripheral) RR: 18 BP: 138/78 SpO2: 97% HT: 70 in HT: 178 cm WT: 82 kg WT: 180.4 lb BMI: 25.88 General: alert, no acute distress Neck: Supple, noJVD nocarotid bruit Cardiovascular: irregularly-irregular rate and rhythm, no murmur normal peripheral perfusion Respiratory: Lungs CTAB, respirations non labored Extremities: no edema left lower extremity. no edema right lower extremity Neurological: oriented x 4, LOC appropriate for age, speech normal Skin: Warm, dry, intact- no rash or concerning lesions Assessment/Plan 1. Atrial fibrillation (I48.91: Unspecified atrial fibrillation) Rate appears to be well-controlled. 2. Syncope (R55: Syncope and collapse) So far, no established diagnosis/suspicion for cardiogenic syncope. The patient has a history of few syncopal spells in the past. I do recommend a loop recorder implant. This option was presented to the patient. He is telling me he would give it a thought. Follow-up No qualifying data available 6 months, Dixon Dubose Problem List/Past Medical History Ongoing ASCVD (arteriosclerotic cardiovascular disease) Carpal tunnel syndrome, left DM type 2 causing vascular disease Encounter for surveillance of abnormal nevi Erectile dysfunction due to arterial insufficiency Fall at home Hard of hearing Hyperlipidemia Longstanding persistent atrial fibrillation Osteoarthritis Syncope Trigger finger Historical Body mass index (BMI) of 25.0-25.9 in adult Procedure/Surgical History Carpal tunnel release (03/26/2024), Carpal tunnel release, Surgery. Medications atenolol 25 mg Tab, See Instructions, 5 refills CoQ10 D3, See Instructions finasteride 5 mg Tab, 5 mg= 1 tab(s), Oral, Daily, 1 refills gabapentin 300 mg Cap, 300 mg= 1 cap(s), Oral, Daily glimepiride 2 mg Tab, 2 mg= 1 tab(s), Oral, Daily, 1 refills Jantoven 5 mg oral tablet, 5 mg= 1 tab(s), Oral, Daily levothyroxine 25 mcg (0.025 mg) Tab, 25 mcg= 1 tab(s), Oral, Daily, 1 refills omeprazole 40 mg Cap-DR, 40 mg= 1 cap(s), Oral, Daily pravastatin 40 mg Tab, See Instructions sildenafil 100 mg Tab, 100 mg= 1 tab(s), Oral, Daily, PRN Sodium Chloride 1 g oral tablet, See Instructions tamsulosin 0.4 mg Cap, 0.4 mg= 1 cap(s), Oral, Daily Turmeric 500 mg oral capsule Vitamin B12 Vitamin D3 5000 intl units (125 mcg) oral tab, 125 mcg= 1 tab(s), Oral, Daily Allergies No Known Medication Allergies Social History Alcohol - Low Risk, 05/03/2024 Current, Liquor, 1-2 times per month, 1 drinks/episode average. Previous treatment: None. Alcohol use interferes with work or home: No. Drinks more than intended: No. Others hurt by drinking: No. Ready to change: No. Household alcohol concerns: No., 05/03/2024 Substance Abuse - Denies Substance Abuse, 03/06/2024 Tobacco - Denies Tobacco Use, 05/03/2024 Never (less than 100 in lifetime) Tobacco Use:. Never Smokeless Tobacco Use:., 06/11/2024 Family History Diabetes mellitus type 2: Mother. Immunizations Vaccine Date Status pneumococcal 20-valent conjugate vaccine 09/21/2023 Recorded influenza virus vaccine, inactivated 08/19/2023 Recorded pneumococcal 13-valent vaccine 03/31/2015 Recorded influenza virus vaccine, inactivated 08/02/2014 Recorded Result Comment: Electronical ly Signed By: Ericka COHN, Kashif Craig\.br\Date and Time Signed: 06/11/24 13:14 EDT HEART AND VASCULAR OFFICE/CLINIC NOTE Observed: 05/30/2024 2:29 PM Status: F Source: [facility] REPOSITORY Heart and Vascular Office/ inic Note Chief Complaint Testing F/U History of Present Illness Patient is an 20-year-old male with past medical history of atrial fibs, syncopal events ASCVD, hyperlipidemia, DM type II. Patient comes in for 6-week follow-up today. At last visit, patient saw Dr. Barnett, at which time he was ordered today echo and Holter monitor to assess syncopal episodes. Echo came back showing biatrial enlargement, moderate TR, normal EF. Holter monitor confirmed that patient was in A-fib over 98% of the time, but did not have any other malignant ventricular arrhythmia or significant heart rhythm issue. Patient reports that he has been feeling well since last visit. He reports that he has not had a syncopal episode about 3 months. He had 3 between the months of November and January and was hospitalized in [place] for 2 of those. He states that he was found to have low sodium during his hospitalization and has been following up with nephrology since then. He is still taking sodium tablets daily and those seem to be helping. Patient is persistent A-fib and is currently taking atenolol 12.5 mg daily warfarin for this issue. Patient reports that he does not have heart palpitation has not realized that he is in A-fib all the time. atenolol was decreased recently and heart rate well-controlled at 75 today in the office. Patient inquires about a refill of sildenafil 100 mg. States that he has been taking it without any issues he had medication past. Patient does not have any history of cardiac stenting and is not currently taking any nitrates. Patient denies chest pain, shortness of breath, heart palpitations, dizziness/lightheadedness, and swelling in lower legs. Review of Systems PHQ Score Initial Depression Screen Score: 0 SCORE ROS - Provider Constitutional: no fever, no chills, no sweats, no weakness Respiratory: no shortness of breath, no cough Cardiovascular: no chest pain Neuro: no dizziness. no loss of consciousness Physical Exam Vitals & Measurements HR: 75(Peripheral) RR: 18 BP: 130/70 SpO2: 95% HT: 70 in HT: 178 cm WT: 80.2 kg WT: 176.44 lb BMI: 25.31 General: alert, no acute distress Cardiovascular: regular rate and rhythm, no murmur normal peripheral perfusion Respiratory: Lungs CTAB, respirations non labored Extremities: no edema left lower extremity. no edema right lower extremity Neurological: oriented x 4, LOC appropriate for age, speech normal Skin: Warm, dry, intact- no rash or concerning lesions Cardiac Diagnostics Holter monitor from 05/27/2024: FINDINGS: Over the monitoring time the Holter monitor registered underlying atrial fibrillation/flutter with minimum heart rate of 33, average heart rate 62, maximum heart rate 139 beats per minute. There were three patient events with symptoms of not specified and baseline. There was no supraventricular ectopy. There was a less than 0.01% burden of premature ventricular ectopy. There were 16 pauses, longest episode of 2.9 seconds at 3:49 a.m. CONCLUSIONS: Underlying atrial fibrillation, overall well controlled. There were no clinically significant pauses, malignant ventricular arrhythmia. [1] (05/01/2024 15:00 EDT Echo Transthoracic Complete) Interpretation Summary Ejection Fraction = 60-65%. Normal LV size and systolic function. Borderline mildly dilated RV with normal function. Biatrial enlargement. Afib, cannot assess diastology. Moderate TR. Normal estimated PA pressure. Mildly dilated ascending aorta. [2] Assessment/Plan 1. Atrial fibrillation (I48.91: Unspecified atrial fibrillation) Patient has persistent A-fib which was confirmed by Holter monitor that he wore in 05/2024. Patient did not have any other significant abnormality seen on Holter monitor. Continue with current medications of warfarin per Coumadin clinic dosing and atenolol 12.5 mg daily. His heart rate is up a little bit from last visit and is tolerating the lower dose of atenolol. Patient also inquires about sildenafil refill which I will need to talk to Dr. Barnett about prior to refilling. 2. Syncope (R55: Syncope and collapse) Patient has history of a few syncopal episodes in the past with most recent being 3 months ago. Echo showed normal EF with moderate TR and biatrial enlargement. Holter monitor showed A-fib but no other significant abnormality and no malignant ventricular arrhythmia. Patient is feeling well at this time. Before ordering any other testing such as loop recorder or carotid ultrasound, will discuss with Dr. Barnett and determine if further testing is needed. Patient is asymptomatic at this time Follow-up with Dr. Barnett in 3 months Portions of this record may have been created with voice recognition artificial intelligence software, specifically [employer], [employer] and or [employer]. Substitutions may have occurred due to the inherent limitations of voice recognition and artificial intelligence software. Total time spent preparing for the encounter, evaluating and assessing the patient, documenting the visit, and ordering appropriate follow-up work was 30 minutes. Follow-up No qualifying data available Problem List/Past Medical History Ongoing ASCVD (arteriosclerotic cardiovascular disease) Carpal tunnel syndrome, left DM type 2 causing vascular disease Encounter for surveillance of abnormal nevi Erectile dysfunction due to arterial insufficiency Fall at home Hard of hearing Hyperlipidemia Longstanding persistent atrial fibrillation Osteoarthritis Syncope Trigger finger Historical Body mass index (BMI) of 25.0-25.9 in adult Procedure/Surgical History Carpal tunnel release (03/26/2024), Carpal tunnel release, Surgery. Medications atenolol 25 mg Tab, See Instructions, 5 refills CoQ10 D3, See Instructions finasteride 5 mg Tab, 5 mg= 1 tab(s), Oral, Daily, 1 refills gabapentin 300 mg Cap, 300 mg= 1 cap(s), Oral, Daily glimepiride 2 mg Tab, 2 mg= 1 tab(s), Oral, Daily, 1 refills Jantoven 5 mg oral tablet, 5 mg= 1 tab(s), Oral, Daily levothyroxine 25 mcg (0.025 mg) Tab, 25 mcg= 1 tab(s), Oral, Daily, 1 refills omeprazole 40 mg Cap-DR, 40 mg= 1 cap(s), Oral, Daily pravastatin 40 mg Tab, 40 mg= 1 tab(s), Oral, Daily sildenafil 100 mg Tab, 100 mg= 1 tab(s), Oral, Daily, PRN Sodium Chloride 1 g oral tablet, See Instructions tamsulosin 0.4 mg Cap, 0.4 mg= 1 cap(s), Oral, Daily Turmeric 500 mg oral capsule Vitamin B12 Vitamin D3 5000 intl units (125 mcg) oral tab, 125 mcg= 1 tab(s), Oral, Daily Allergies No Known Medication Allergies Social History Alcohol - Low Risk, 05/03/2024 Current, Liquor, 1-2 times per month, 1 drinks/episode average. Previous treatment: None. Alcohol use interferes with work or home: No. Drinks more than intended: No. Others hurt by drinking: No. Ready to change: No. Household alcohol concerns: No., 05/03/2024 Substance Abuse - Denies Substance Abuse, 03/06/2024 Tobacco - Denies Tobacco Use, 05/03/2024 Never (less than 100 in lifetime) Tobacco Use:. Never Smokeless Tobacco Use:., 05/30/2024 Family History Diabetes mellitus type 2: Mother. Immunizations Vaccine Date Status pneumococcal 20-valent conjugate vaccine 09/21/2023 Recorded influenza virus vaccine, inactivated 08/19/2023 Recorded pneumococcal 13-valent vaccine 03/31/2015 Recorded influenza virus vaccine, inactivated 08/02/2014 Recorded [1] Holter Monitor; Kashif Barnett MD 05/27/2024 12:10 EDT [2] Echo Transthoracic Complete; Jason Vaughn MD 05/01/2024 15:00 EDT Result Comment: Electronical ly Signed By: Gracy DOTY, Dixon Schumacher\.br\Date and Time Signed: 05/30/24 14:29 EDT HOLTER MONITOR Observed: 05/27/2024 12:10 PM Status: F Source: [facility] REPOSITORY Holter Monitor HOLTER MONITOR ENROLLMENT PERIOD: 05/21/2024 through 05/23/2024 INDICATION: Atrial fibrillation. FINDINGS: Over the monitoring time the Holter monitor registered underlying atrial fibrillation/flutter with minimum heart rate of 33, average heart rate 62, maximum heart rate 139 beats per minute. There were three patient events with symptoms of not specified and baseline. There was no supraventricular ectopy. There was a less than 0.01% burden of premature ventricular ectopy. There were 16 pauses, longest episode of 2.9 seconds at 3:49 a.m. CONCLUSIONS: Underlying atrial fibrillation, overall well controlled. There were no clinically significant pauses, malignant ventricular arrhythmia. READ BY: Kashif Barnett MD ca Dictated: 05/27/2024 [id number] Transcribed: 05/28/2024 Result Comment: Electronical ly Signed By: Ericka COHN, Kashif Craig\.br\Date and Time Signed: 05/29/24 13:13 EDT CODING SUMMARY. Observed: 05/09/2024 11:00 AM Status: F Source: [facility] REPOSITORY [id number] [file] [id number]= CODING SUMMARY. Observed: 05/08/2024 4:41 PM Status: F Source: [facility] REPOSITORY [id number] [file] [id number] FAMILY MEDICINE OFFICE/CLINI C NOTE Observed: 05/03/2024 9:30 AM Status: F Source: [facility] REPOSITORY Chief Complaint Medicare Wellness Visit History of Present Illness Covid-19, MERS, Ebola Screen *Contact With Person With Highly Contagious Disease Like Ebola/MERS/COVID-19 AND Have One or More of the Symptoms Below : No *Travel to a Country With Wide-Spread Ebola/MERS/COVID-19 in the Past 21 Days AND Have One or More of the Symptoms Below : No Patient Reported Covid-19 Testing : No *Verify Droplet, Contact Precautions for Ebola (Reference for CDC) : N/A *Verify Airborne, Droplet Precautions for MERS/COVID-19 : N/A Renetta Abdullahi LPN L - 05/03/2024 8:01 EDT Medicare/Medicaid Summary Chief Complaint : Medicare Wellness Visit Patient Counseled : Nutrition, Physical activity, Elevated BMI Height/Length Measured : 178 cm(Converted to: 5 ft 10 in, 70.08 in) Weight Measured : 78 kg(Converted to: 171 lb 15 Ounces, 171.961 lb) Body Mass Index Measured : 24.62 kg/m2 Height in Inches : 70 in Weight in Pounds : 171.6 lb Systolic Blood Pressure : 108 mmHg Diastolic Blood Pressure : 52 mmHg (LOW) Blood Pressure Location : Right arm Blood Pressure Position : Sitting O2 Sat Resting/Exertion Alpha : Resting Peripheral Pulse Rate : 72 bpm Respiratory Rate : 16 br/min SpO2 : 96 % Pain Present : No actual or suspected pain Numeric Rating Pain Score : 5 Renetta Abdullahi LPN - 05/03/2024 8:01 EDT Hearing and Vision Screening FT FT Whisper Test Comments : Wears hearing aids. Vision Screen Comments : Wears corrective lenses to read, does not have an eye dr. Has not had a DM eye exam in over two years, encouraged to establigh with an eye dr and get a DM eye exam, patient states he has just been busy, Renetta Abdullahi LPN - 05/03/2024 8:01 EDT Advance Directive FT Advance Directive : No Patient Wishes to Receive Further Information on Advance Directives : No Organ Donation Consent : No Renetta Abdullahi LPN - 05/03/2024 8:01 EDT Procedures / Surgeries FT - Procedure History (As Of: 05/03/2024 09:05:32 EDT) Anesthesia Minutes: 0 ; Procedure Name: Surgery, neck X 2 ; Procedure Minutes: 0 ; Last Reviewed Dt/Tm: 05/03/2024 08:24:28 EDT Procedure Dt/Tm: 03/26/2024 ; Location: [facility] ; Anesthesia Minutes: 0 ; Procedure Name: Carpal tunnel release ; Procedure Minutes: 0 ; Last Reviewed Dt/Tm: 05/03/2024 08:24:28 EDT Anesthesia Minutes: 0 ; Procedure Name: Carpal tunnel release ; Procedure Minutes: 0 ; Last Reviewed Dt/Tm: 05/03/2024 08:24:28 EDT Family History Family History (As Of: 05/03/2024 09:05:32 EDT) Father: Relation: Father ; Gender: Male ; Unknown History Mother: Relation: Mother ; Gender: Female ; Nomenclature: Diabetes mellitus type 2 ; Value: Positive Medicare/Medicaid Social History FT Social History (As Of: 05/03/2024 09:05:32 EDT) Alcohol: Low Risk Current, Liquor, 1-2 times per month, 1 drinks/episode average. Previous treatment: None. Alcohol use interferes with work or home: No. Drinks more than intended: No. Others hurt by drinking: No. Ready to change: No. Household alcohol concerns: No. Comments: 05/03/2024 8:27 - Renetta Abdullahi LPN: Patient states he drinks a rum and diet coke once or twice a month. 03/06/2024 8:23 - Bernarda Mark RN D: maybe 3x/ month (Last Updated: 05/03/2024 08:27:48 EDT by Renetta Abdullahi LPN) Tobacco: Denies Tobacco Use Never (less than 100 in lifetime) Tobacco Use:. Never Smokeless Tobacco Use:. (Last Updated: 04/20/2024 13:18:08 EDT by Lauren Saeed) Substance Abuse: Denies Substance Abuse (Last Updated: 03/06/2024 08:23:10 EDT by Bernarda Mark RN ) Health Risk Assessment FT HRA little interest or pleasure? : Yes HRA down, depressed, or hopeless? : No Hazards in your house? : No Fall Risk Past Year : Yes Worried About Falling : No Use a Cane or Walker? : No Someone Helps You in the Morning : No Fallen or felt dizzy standing up? : No Assistance with personal care? : No Trouble taking meds correctly? : No HRA Pain Present : Yes Primary Pain Location : Back Numeric Rating Pain Scale : 5 = Moderate pain Numeric Rating Pain Score : 5 Able to walk without help? : Yes Ability to shop w/out help : Yes Prepare your own meals? : Yes Housework without help? : Yes Handle money without help : Yes Track own medications without help? : Yes Overall mood for past four weeks : Good and bad parts about equal General health rating : Good Someone avail. to help if needed? : Yes, as much as I wanted Phys. & emotional health limit social act? : Not at all Renetta Abdullahi LPN - 05/03/2024 8:01 EDT Misc Health Risks Grid Sexual problems : Never Trouble eating well : Never Teeth or denture problems : Never Problems using the telephone : Never Renetta Abdullahi LPN - 05/03/2024 8:01 EDT Confident you control health problems : Very confident Difficulties driving your car? : No Seatbelts : I always fasten my seat belt Renetta Abdullahi LPN - 05/03/2024 8:01 EDT Depression Screening Little Interest, Pleasure in Activities (ref) : Not at all Feeling Down, Depressed, Hopeless : Not at all Initial Depression Screening Score : 0 SCORE Depression Screening Result : Negative Renetta Abdullahi LPN - 05/03/2024 8:01 EDT Social Determinants (PRAPARE) What is your housing situation today? : I have housing You or Family Gone Without Household Needs Past Year : No No Transport to Med Appts/Meetings/Work/Meds/Necessities : No Currently Live in Physical and Emotional Safety : Yes Social Determinants (PRAPARE) Info RTF : Social Determinants (PRAPARE) No qualifying data available. Renetta Abdullahi LPN 05/03/2024 8:01 EDT Mini-Cog FT CDT(Clock Drawing Test) score : Normal # of Recalled Words : 3 Mini-Cog Score : Negative for cognitive impairment Renetta Abdullahi LPN 05/03/2024 9:03 EDT Home Safety Screen FT Emergency Numbers Kept/Updated : Yes Aware of Smoking Dangers : Yes Smoke Alarms/Fire Extinguisher Available : Yes Household Members Fire Safety Knowledge : Yes Firearms Unloaded and Secure : Yes Floor Rugs Removed or Fastened : Yes Mats in Bathtub/Shower : Yes Stairway Rails or Banisters : Yes Outdoor Clutter Safety : Yes Indoor Clutter Safety : Yes Electrical Cord Safety : Yes Renetta Abdullahi LPN 05/03/2024 8:01 EDT Medicare/Medicaid Val[place] Fall Risk History of Fall in Last 3 Months Valenzuela : Yes Renetta Abdullahi LPN 05/03/2024 9:03 EDT Presence of Secondary Diagnosis Valenzuela : No Use of Ambulatory Aid Valenzuela : None, bedrest, wheelchair, nurse IV/Heparin Lock Fall Risk [place] : No Gait Weak or Impaired Fall Risk Valenzuela : Normal, bedrest, immobile Mental Status Fall Risk Valenzuela : Oriented to own ability Renetta Abdullahi LPN 05/03/2024 8:01 EDT [place] Fall Risk Score : 25 Renetta Abdullahi LPN 05/03/2024 9:03 EDT Functional Assessment FT Functional ADL Evaluation Index EBN Grid Bathing : Independent (2) Dressing : Independent (2) Toileting : Independent (2) Transferring Bed or Chair : Independent (2) Continence : Independent (2) Feeding : Independent (2) Renetta Abdullahi LPN 05/03/2024 8:01 EDT ADL Index Score : 12 Renetta Abdullahi LPN 05/03/2024 8:01 EDT IADL FT IADL Grid FT Meal Prep IADL : Independent FT Writig IADL : Independent FT Keyboarding IADL : Independent FT Phone Use IADL : Independent FT Money Management IADL : Independent FT Grocery Shopping IADL : Independent FT Clothing Care IADL : Independent FT Light Cleaning IADL : Independent FT Heavy Cleaning IADL : Independent FT Transportation IADL : Independent FT Community Mobility, Safety IADL : Independent FT Care of Others IADL : Independent FT Medication Management IADL : Independent FT Other IADL : Independent Renetta Abdullahi LPN - 05/03/2024 8:01 EDT AUDIT Screening FT AUDIT Frequency of Drinks Containing Alcohol : 2 to 4 times a month AUDIT Number Alcohol Drinks If Drinking : 1 or 2 AUDIT Freq of Six or More Drinks on One Occasion : Never AUDIT Score : 2 Renetta Abdullahi LPN - 05/03/2024 8:01 EDT Medication History Medication History Progress Note : . Manages Home Medication Administration : Effectively with assistance Medication History Source : Self Verbalizes Home Medications : Accurately Renetta Abdullahi LPN - 05/03/2024 8:01 EDT Medication List (As Of: 05/03/2024 08:35:56 EDT) Image 2 - Images currently included in the form version of this document have not been included in the text rendition version of the form. Review of Systems PHQ Score Initial Depression Screen Score: 0 SCORE Physical Exam Vitals & Measurements HR: 72(Peripheral) RR: 16 BP: 108/52 SpO2: 96% HT: 178 cm HT: 70 in WT: 78 kg WT: 171.6 lb BMI: 24.62 Assessment/Plan 1. Annual visit for general adult medical examination with abnormal findings (Z00.01: Encounter for general adult medical examination with abnormal findings) Discussed all the current AHRQ USPSTF?s recommendations for preventative services and all current CDC recommended immunizations, relevant risk recommendations and the following patient brochures were given. Reviewed Medicare Prevention Services checklist. CDC-Falls Prevention and home safety screening reviewed. Patient states three falls with injury in last 12 months due to passing out, voices no worry about falling. Exhibits no problems with sitting, standing or ambulation. Patient aware with keeping walk way area free of clutter to prevent tripping and/or falling. [place] Advance Directives reviewed. Patient states he is working with an state's attorney to make Advance Directives, encouraged to bring in for scanning into chart. Patient denies any problems with ADL?s and Instrumental ADL?s. Cognitive screening completed with memory and clock face drawing. No deficits noted. Immunization record reviewed, discussed Shingrix vaccine with educational handout and availability. COVID vaccines have been administered. Patient states he is UTD with COVID and Shingles vaccines, states he got them in [place] before moving to [place]. Allergies and medications reviewed and up to date. No concerns with taking medication as prescribed. Reviewed OTC medications, medication list up to date. Blood tests were reviewed: Labs UTD. No concerns with bowel/ bladder. Colonoscopy: Aged out. Reviewed pain symptoms : Denies pain today. States he has been waking up with some back pain, pain is relieved after sitting in his recliner chair for a few minutes, states he plans to see a chiropractor. Reviewed all outside providers that patient follows. Last visit summary notes available in chart and/or have been requested. Patient declines any signs or symptoms of depression at this time. 8 minutes spent with screening and documentation. PHQ2 screening score 0. Patient drinks alcohol 1-2 times per month, 1 rum and diet coke per episode, denies concerns. 12 minutes spent with screening and documentation. Audit score 2. Follow up scheduled with PCP, today. AWV has been scheduled, 05/02/25. Abnormal findings with fall risk. See # Medicare provides yearly screening for alcohol and depression concerns. This is completed during our Medicare wellness visit for those who do not have a current diagnosis of depression or concerns with alcohol use. I spent a total of 20 minutes on this date of service which included preparing to see the patient, face to face patient care, completing clinical documentation, obtaining and/or reviewing separately obtained history, counseling and educating the patient with handouts. Explanations were provided with reviewing questionnaires. AUDIT risk assessment screening completed, risk score (2) with patient denying concerns with use. Completed PHQ-2 risk assessment for depression with risk score (0), negative findings. Patient has been reminded to notify the provider if there would be a change or concerns with symptoms with fear, unable to sleep, worrying too much or feeling down and/or sad with lost of interest with daily activities. Will continue to monitor with screening yearly during Medicare wellness visits. 2. Afib (I48.91: Unspecified atrial fibrillation) Follows Certified Ophthalmic Technologist, Dr. Barnett, next office visit 05/25/24 for 5 week f/u. Denies SOB, chest pain or irregular heart rhythm. Manages medications, Coumadin- through [facility] and Atenolol with office visits. Cardiac-/DASH nutritional education handout reviewed with patient and provided. Tries following healthy dietary intake. Last visit office notes are available in medical chart for PCP to review, 04/20/2024. 3. Longstanding persistent atrial fibrillation (I48.11: Longstanding persistent atrial fibrillation) See #2. 4. 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) DM stoplight handout reviewed with signs and symptoms to monitor for and report to PCP. Discussed ADA dietary recommendations with handouts provided. Encouraged to increase daily physical activity, adequate water intake, monitor carbs/chol and fats. Currently taking Glimepiride daily as directed. Not monitoring BS at home with results reviewed with PCP. Follows up yearly with DM foot check, reminded patient to perform at home foot checks to prevent future complications. Patient has not completed DM education. Declines interest at this time for referral. Complete DM eye exams not completed yearly, patient states he used to get yearly DM eye exams in [place] but has not since moving to [place] two years ago, states he has been busy. Encouraged patient to establish with an eye doctor here and get a DM eye exam. Follow up with PCP. Patient states he also follows up with Dr. Najera, Nephrology, could not remember how frequently but states he was there a few months ago and is going back this week to follow up, Summary Visit notes requested. 5. Hyperlipidemia (E78.5: Hyperlipidemia, unspecified) Patient encouraged to eat a diet that is low in saturated fats. Stressed importance of maintaining healthy BMI as being overweight does produce more lipids. Monitor alcohol intake and avoid smoking. Risks may also increase with a family history of hyperlipidemia. Patient voices understanding with healthy dietary choices to reduce risk factors associated with CVA. Taking statin medication daily. Will continue to follow up with labs as directed. 6. ASCVD (arteriosclerotic cardiovascular disease) (I25.10: Atherosclerotic heart disease of [place] coronary artery without angina pectoris) Patient taking Coumadin and Pravastatin as directed. Labs and medications monitored through the [facility] and through office visits with PCP and Cardiology. Follow up as directed with PCP, Cardiology and [facility]. 7. Frequent falls (R29.6: Repeated falls) Patient states he has fallen three times with injury in the past year due to passing out. States he has not fallen due to tripping or losing balance but that he passes out and then falls over. States he is currently working with PCP and Cardiology to address this, discussed PT and patient declines at this time as falls are due to passing out and not a balance issue. Follow-up No qualifying data available Patient Education Type 2 Diabetes Mellitus, Self-Care, Adult Fall Prevention in the Home, Adult DASH Eating Plan Problem List/Past Medical History Ongoing ASCVD (arteriosclerotic cardiovascular disease) Carpal tunnel syndrome, left DM type 2 causing vascular disease Encounter for surveillance of abnormal nevi Erectile dysfunction due to arterial insufficiency Fall at home Hard of hearing Hyperlipidemia Longstanding persistent atrial fibrillation Osteoarthritis Syncope Trigger finger Historical Body mass index (BMI) of 25.0-25.9 in adult Procedure/Surgical History Carpal tunnel release (03/26/2024), Carpal tunnel release, Surgery. Medications atenolol 25 mg Tab, See Instructions, 5 refills CoQ10 D3, See Instructions finasteride 5 mg Tab, 5 mg= 1 tab(s), Oral, Daily, 1 refills gabapentin 300 mg Cap, 300 mg= 1 cap(s), Oral, Daily glimepiride 2 mg Tab, 2 mg= 1 tab(s), Oral, Daily, 1 refills Jantoven 5 mg oral tablet, 5 mg= 1 tab(s), Oral, Daily levothyroxine 25 mcg (0.025 mg) Tab, 25 mcg= 1 tab(s), Oral, Daily, 1 refills omeprazole 40 mg Cap-DR, 40 mg= 1 cap(s), Oral, Daily pravastatin 40 mg Tab, 40 mg= 1 tab(s), Oral, Daily sildenafil 100 mg Tab, 100 mg= 1 tab(s), Oral, Daily, PRN Sodium Chloride 1 g oral tablet, See Instructions tamsulosin 0.4 mg Cap, 0.4 mg= 1 cap(s), Oral, Daily Turmeric 500 mg oral capsule Vitamin B12 Vitamin D3 5000 intl units (125 mcg) oral tab, 125 mcg= 1 tab(s), Oral, Daily Allergies No Known Medication Allergies Social History Alcohol - Low Risk, 05/03/2024 Current, Liquor, 1-2 times per month, 1 drinks/episode average. Previous treatment: None. Alcohol use interferes with work or home: No. Drinks more than intended: No. Others hurt by drinking: No. Ready to change: No. Household alcohol concerns: No., 05/03/2024 Substance Abuse - Denies Substance Abuse, 03/06/2024 Tobacco - Denies Tobacco Use, 05/03/2024 Never (less than 100 in lifetime) Tobacco Use:. Never Smokeless Tobacco Use:., 04/20/2024 Family History Diabetes mellitus type 2: Mother. Immunizations Vaccine Date Status pneumococcal 20-valent conjugate vaccine 09/21/2023 Recorded influenza virus vaccine, inactivated 08/19/2023 Recorded pneumococcal 13-valent vaccine 03/31/2015 Recorded influenza virus vaccine, inactivated 08/02/2014 Recorded Result Comment: Electronical ly Signed By: Kylah Garcia MD\.br\Date and Time Signed: 05/03/24 13:02 EDT\.br\Electronically Co-Signed By: Renetta Abdullahi LPN\.br\Date and Time Co-Signed: 05/03/24 09:30 EDT AMBULATORY VISIT SUMMARY Observed: 05/03 9:29 AM Status: F Source: [facility] REPOSITORY DARIEL AGUILERA :1940 Visit Date:05/03/2024 Ambulatory Visit Instructions Your Diagnosis Annual visit for general adult medical examination with abnormal findings Afib Longstanding persistent atrial fibrillation DM type 2 causing vascular disease Hyperlipidemia ASCVD (arteriosclerotic cardiovascular disease) Frequent falls Your Care Team Attending Physician - Kylah Garcia MD Primary Care Physician - Kylah Garcia MD This Is Your Medications List Turmeric (Turmeric 500 mg oral capsule) atenolol (atenolol 25 mg Tab) cholecalciferol (D3) cholecalciferol (Vitamin D3 5000 intl units (125 mcg) oral tab) cyanocobalamin (Vitamin B12) finasteride (finasteride 5 mg Tab) gabapentin (gabapentin 300 mg Cap) glimepiride (glimepiride 2 mg Tab) levothyroxine (levothyroxine 25 mcg (0.025 mg) Tab) omeprazole (omeprazole 40 mg Cap-DR) pravastatin (pravastatin 40 mg Tab) sildenafil (sildenafil 100 mg Tab) sodium chloride (Sodium Chloride 1 g oral tablet) tamsulosin (tamsulosin 0.4 mg Cap) ubiquinone (CoQ10) warfarin (Jantoven 5 mg oral tablet) Procedures Performed Carpal tunnel release (03/26/2024), Carpal tunnel release, Surgery. Discharge Vitals Heart Rate (Peripheral) 72 Respiratory Rate 16 Blood Pressure 108/52 Height 178 cm Height 70 in Weight 78 kg Weight 171.6 lb BMI 24.62 What to do next Scheduled Follow-Up Appointments Tuesday 10:00 AM EDT With: Where: [facility] Tuesday 1:00 PM EDT With: Ericka COHN, Kashif Craig Where: [facility] [place] 2023 9:15 AM EST With: Adam COHN, Kylah Cole Where: [facility] [place] PATIENT EDUCATION Observed: 05/03/2024 9:29 AM Status: C Source: [facility] REPOSITORY Caregiving Fall Prevention in the Home, Adult Falls can cause injuries and affect people of all ages. There are many simple things that you can do to make your home safe and to help prevent falls. Ask for help when making these changes, if needed. What actions can I take to prevent falls? General instructions ? Use good lighting in all rooms. Replace any light bulbs that burn out, turn on lights if it is dark, and use night-lights. ? Place frequently used items in mbuk-da-nohbb places. Lower the shelves around your home if necessary. ? Set up furniture so that there are clear paths around it. Avoid moving your furniture around. ? Remove throw rugs and other tripping hazards from the floor. ? Avoid walking on wet floors. ? Fix any uneven floor surfaces. ? Add color or contrast paint or tape to grab bars and handrails in your home. Place contrasting color strips on the first and last steps of staircases. ? When you use a stepladder, make sure that it is completely opened and that the sides and supports are firmly locked. Have someone hold the ladder while you are using it. Do not climb a closed stepladder. ? Know where your pets are when moving through your home. What can I do in the bathroom? ? Keep the floor dry. Immediately clean up any water that is on the floor. ? Remove soap buildup in the tub or shower regularly. ? Use nonskid mats or decals on the floor of the tub or shower. ? Attach bath mats securely with double-sided, nonslip rug tape. ? If you need to sit down while you are in the shower, use a plastic, nonslip stool. ? Install grab bars by the toilet and in the tub and shower. Do not use towel bars as grab bars. What can I do in the bedroom? ? Make sure that a bedside light is easy to reach. ? Do not use oversized bedding that reaches the floor. ? Have a firm chair that has side arms to use for getting dressed. What can I do in the kitchen? ? Clean up any spills right away. ? If you need to reach for something above you, use a sturdy step stool that has a grab bar. ? Keep electrical cables out of the way. ? Do not use floor vincentian or wax that makes floors slippery. If you must use wax, make sure that it is non-skid floor wax. What can I do with my stairs? ? Do not leave any items on the stairs. ? Make sure that you have a light switch at the top and the bottom of the stairs. Have them installed if you do not have them. ? Make sure that there are handrails on both sides of the stairs. Fix handrails that are broken or loose. Make sure that handrails are as long as the staircases. ? Install non-slip stair treads on all stairs in your home. ? Avoid having throw rugs at the top or bottom of stairs, or secure the rugs with carpet tape to prevent them from moving. ? Choose a carpet design that does not hide the edge of steps on the stairs. ? Check any carpeting to make sure that it is firmly attached to the stairs. Fix any carpet that is loose or worn. What can I do on the outside of my home? ? Use bright outdoor lighting. ? Regularly repair the edges of walkways and driveways and fix any cracks. ? Remove high doorway thresholds. ? Trim any shrubbery on the main path into your home. ? Regularly check that handrails are securely fastened and in good repair. Both sides of all steps should have handrails. ? Install guardrails along the edges of any raised decks or porches. ? Clear walkways of debris and clutter, including tools and rocks. ? Have leaves, snow, and ice cleared regularly. ? Use sand or salt on walkways during winter months. ? In the garage, clean up any spills right away, including grease or oil spills. What other actions can I take? ? Wear closed-toe shoes that fit well and support your feet. Wear shoes that have rubber soles or low heels. ? Use mobility aids as needed, such as canes, walkers, scooters, and crutches. ? Review your medicines with your health care provider. Some medicines can cause dizziness or changes in blood pressure, which increase your risk of falling. Talk with your health care provider about other ways that you can decrease your risk of falls. This may include working with a physical therapist or aed trainer to improve your strength, balance, and endurance. Where to find more information ? Centers for Disease Control and Prevention, [place]: www.cdc.gov ? National [place] on Aging: www.kieran.nih.gov Contact a health care provider if: ? You are afraid of falling at home. ? You feel weak, drowsy, or dizzy at home. ? You fall at home. Summary ? There are many simple things that you can do to make your home safe and to help prevent falls. ? Ways to make your home safe include removing tripping hazards and installing grab bars in the bathroom. ? Ask for help when making these changes in your home. This information is not intended to replace advice given to you by your health care provider. Make sure you discuss any questions you have with your health care provider. Document Revised: 08/02/2022 Document Reviewed: 06/03/2021 [employer] Patient Education ? 2022 [employer]Endocrinology Type 2 Diabetes Mellitus, Self-Care, Adult Caring for yourself after you have been diagnosed with type 2 diabetes (type 2 diabetes mellitus) means keeping your blood sugar (glucose) under control with a balance of: ? Nutrition. ? Exercise. ? Lifestyle changes. ? Medicines or insulin, if needed. ? Support from your team of health care providers and others. What are the risks? Having type 2 diabetes can put you at risk for other long-term (chronic) conditions, such as heart disease and kidney disease. Your health care provider may prescribe medicines to help prevent complications from diabetes. How to monitor your blood glucose ? Check your blood glucose every day or as often as told by your health care provider. ? Have your A1C (hemoglobin A1C) level checked two or more times a year, or as often as told by your health care provider. ? Your health care provider will set personalized treatment goals for you. Generally, the goal of treatment is to maintain the following blood glucose levels: ? Before meals: 80?130 mg/dL (4.4?7.2 mmol/L). ? After meals: below 180 mg/dL (10 mmol/L). ? A1C level: less than 7%. How to manage hyperglycemia and hypoglycemia Hyperglycemia symptoms Hyperglycemia, also called high blood glucose, occurs when blood glucose is too high. Make sure you know the early signs of hyperglycemia, such as: ? Increased thirst. ? Hunger. ? Feeling very tired. ? Needing to urinate more often than usual. ? Blurry vision. Hypoglycemia symptoms Hypoglycemia, also called low blood glucose, occurs with a blood glucose level at or below 70 mg/dL (3.9 mmol/L). Diabetes medicines lower your blood glucose and can cause hypoglycemia. The risk for hypoglycemia increases during or after exercise, during sleep, during illness, and when skipping meals or not eating for a long time (fasting). It is important to know the symptoms of hypoglycemia and treat it right away. Always have a 15-gram rapid-acting carbohydrate snack with you to treat low blood glucose. Family members and close friends should also know the symptoms and understand how to treat hypoglycemia, in case you are not able to treat yourself. Symptoms may include: ? Hunger. ? Anxiety. ? Sweating and feeling clammy. ? Dizziness or feeling light-headed. ? Sleepiness. ? Increased heart rate. ? Irritability. ? Tingling or numbness around the mouth, lips, or tongue. ? Restless sleep. Severe hypoglycemia is when your blood glucose level is at or below 54 mg/dL (3 mmol/L). Severe hypoglycemia is an emergency. Do not wait to see if the symptoms will go away. Get medical help right away. Call your local emergency services (911 in the [place] Do not drive yourself to the hospital. If you have severe hypoglycemia and you cannot eat or drink, you may need glucagon. A family member or close friend should learn how to check your blood glucose and how to give you glucagon. Ask your health care provider if you need to have an emergency glucagon kit available. Follow these instructions at home: Medicines ? Take prescribed insulin or diabetes medicines as told by your health care provider. ? Do not run out of insulin or other diabetes medicines. Plan ahead so you always have these available. ? If you use insulin, adjust your dosage based on your physical activity and what foods you eat. Your health care provider will tell you how to adjust your dosage. ? Take ivkt-cib-pakstuk and prescription medicines only as told by your health care provider. Eating and drinking What you eat and drink affects your blood glucose and your insulin dosage. Making good choices helps to control your diabetes and prevent other health problems. A healthy meal plan includes eating lean proteins, complex carbohydrates, fresh fruits and vegetables, low-fat dairy products, and healthy fats. Make an appointment to see a registered dietitian to help you create an eating plan that is right for you. Make sure that you: ? Follow instructions from your health care provider about eating or drinking restrictions. ? Drink enough fluid to keep your urine pale yellow. ? Keep a record of the carbohydrates that you eat. Do this by reading food labels and learning the standard serving sizes of foods. ? Follow your sick-day plan whenever you cannot eat or drink as usual. Make this plan in advance with your health care provider. Activity ? Stay active. Exercise regularly, as told by your health care provider. This may include: ? Stretching and doing strength exercises, such as yoga or weight lifting, two or more times a week. ? Doing 150 minutes or more of moderate-intensity or vigorous-intensity exercise each week. This could be brisk walking, biking, or water aerobics. ? Spread out your activity over 3 or more days of the week. ? Do not go more than 2 days in a row without doing some kind of physical activity. ? When you start a new exercise or activity, work with your health care provider to adjust your insulin, medicines, or food intake as needed. Lifestyle ? Do not use any products that contain nicotine or tobacco. These products include cigarettes, chewing tobacco, and vaping devices, such as e-cigarettes. If you need help quitting, ask your health care provider. ? If you drink alcohol and your health care provider says that it is safe for you: ? Limit how much you have to: ? 0?1 drink a day for women who are not . ? 0?2 drinks a day for men. ? Know how much alcohol is in your drink. In the [place] one drink equals one 12 oz bottle of beer (355 mL), one 5 oz glass of wine (148 mL), or one 1? oz glass of hard liquor (44 mL). ? Learn to manage stress. If you need help with this, ask your health care provider. Take care of your body ? Keep your immunizations up to date. In addition to getting vaccinations as told by your health care provider, it is recommended that you get vaccinated against the following illnesses: ? The flu (influenza). Get a flu shot every year. ? Pneumonia. ? Hepatitis B. ? Schedule an eye exam soon after your diagnosis, and then one time every year after that. ? Check your skin and feet every day for cuts, bruises, redness, blisters, or sores. Schedule a foot exam with your health care provider once every year. ? [place] your teeth and gums two times a day, and floss one or more times a day. Visit your dentist one or more times every 6 months. ? Maintain a healthy weight. General instructions ? Share your diabetes management plan with people in your workplace, school, and household. ? Carry a medical alert card or wear medical alert jewelry. ? Keep all follow-up visits. This is important. Questions to ask your health care provider ? Should I meet with a certified diabetes care and educational/development assistant? ? Where can I find a support group for people with diabetes? Where to find more information For help and guidance and for more information about diabetes, please visit: ? [place] Diabetes Association (ADA): www.diabetes.org ? [place] Association of Diabetes Care and Education Specialists (ADCES): www.diabeteseducator.org ? International Diabetes Federation (IDF): www.idf.org Summary ? Caring for yourself after you have been diagnosed with type 2 diabetes (type 2 diabetes mellitus) means keeping your blood sugar (glucose) under control with a balance of nutrition, exercise, lifestyle changes, and medicine. ? Check your blood glucose every day, as often as told by your health care provider. ? Having diabetes can put you at risk for other long-term (chronic) conditions, such as heart disease and kidney disease. Your health care provider may prescribe medicines to help prevent complications from diabetes. ? Share your diabetes management plan with people in your workplace, school, and household. ? Keep all follow-up visits. This is important. This information is not intended to replace advice given to you by your health care provider. Make sure you discuss any questions you have with your health care provider. Document Revised: 03/31/2022 Document Reviewed: 03/31/2022 [employer] Patient Education ? 2022 [employer].Nutrition DASH Eating Plan DASH stands for Dietary Approaches to Stop Hypertension. The DASH eating plan is a healthy eating plan that has been shown to: ? Reduce high blood pressure (hypertension). ? Reduce your risk for type 2 diabetes, heart disease, and stroke. ? Help with weight loss. What are tips for following this plan? Reading food labels ? Check food labels for the amount of salt (sodium) per serving. Choose foods with less than 5 percent of the Daily Value of sodium. Generally, foods with less than 300 milligrams (mg) of sodium per serving fit into this eating plan. ? To find whole grains, look for the word whole as the first word in the ingredient list. Shopping ? Buy products labeled as low-sodium or no salt added. ? Buy fresh foods. Avoid canned foods and pre-made or frozen meals. Cooking ? Avoid adding salt when cooking. Use salt-free seasonings or herbs instead of table salt or sea salt. Check with your health care provider or pharmacist before using salt substitutes. ? Do not mars foods. Cook foods using healthy methods such as baking, boiling, grilling, roasting, and broiling instead. ? Cook with heart-healthy oils, such as olive, canola, avocado, soybean, or sunflower oil. Meal planning ? Eat a balanced diet that includes: ? 4 or more servings of fruits and 4 or more servings of vegetables each day. Try to fill one-half of your plate with fruits and vegetables. ? 6?8 servings of whole grains each day. ? Less than 6 oz (170 g) of lean meat, poultry, or fish each day. A 3-oz (85-g) serving of meat is about the same size as a deck of cards. One egg equals 1 oz (28 g). ? 2?3 servings of low-fat dairy each day. One serving is 1 cup (237 mL). ? 1 serving of nuts, seeds, or beans 5 times each week. ? 2?3 servings of heart-healthy fats. Healthy fats called omega-3 fatty acids are found in foods such as walnuts, flaxseeds, fortified milks, and eggs. These fats are also found in cold-water fish, such as sardines, salmon, and mackerel. ? Limit how much you eat of: ? Canned or prepackaged foods. ? Food that is high in trans fat, such as some fried foods. ? Food that is high in saturated fat, such as fatty meat. ? Desserts and other sweets, sugary drinks, and other foods with added sugar. ? Full-fat dairy products. ? Do not salt foods before eating. ? Do not eat more than 4 egg yolks a week. ? Try to eat at least 2 vegetarian meals a week. ? Eat more home-cooked food and less restaurant, buffet, and fast food. Lifestyle ? When eating at a restaurant, ask that your food be prepared with less salt or no salt, if possible. ? If you drink alcohol: ? Limit how much you use to: ? 0?1 drink a day for women who are not . ? 0?2 drinks a day for men. ? Be aware of how much alcohol is in your drink. In the [place] one drink equals one 12 oz bottle of beer (355 mL), one 5 oz glass of wine (148 mL), or one 1? oz glass of hard liquor (44 mL). General information ? Avoid eating more than 2,300 mg of salt a day. If you have hypertension, you may need to reduce your sodium intake to 1,500 mg a day. ? Work with your health care provider to maintain a healthy body weight or to lose weight. Ask what an ideal weight is for you. ? Get at least 30 minutes of exercise that causes your heart to beat faster (aerobic exercise) most days of the week. Activities may include walking, swimming, or biking. ? Work with your health care provider or dietitian to adjust your eating plan to your individual calorie needs. What foods should I eat? Fruits All fresh, dried, or frozen fruit. Canned fruit in natural juice (without added sugar). Vegetables Fresh or frozen vegetables (raw, steamed, roasted, or grilled). Low-sodium or reduced-sodium tomato and vegetable juice. Low-sodium or reduced-sodium tomato sauce and tomato paste. Low-sodium or reduced-sodium canned vegetables. Grains Whole-grain or whole-wheat bread. Whole-grain or whole-wheat pasta. Brown rice. Oatmeal. Quinoa. Bulgur. Whole-grain and low-sodium cereals. Tammi bread. Low- fat, low-sodium crackers. Whole-wheat flour tortillas. Meats and other proteins Skinless chicken or turkey. Ground chicken or turkey. Pork with fat trimmed off. Fish and seafood. Egg whites. Dried beans, peas, or lentils. Unsalted nuts, nut butters, and seeds. Unsalted canned beans. Lean cuts of beef with fat trimmed off. Low- sodium, lean precooked or cured meat, such as sausages or meat loaves. Dairy Low-fat (1%) or fat-free (skim) milk. Reduced-fat, low-fat, or fat-free cheeses. Nonfat, low-sodium ricotta or cottage cheese. Low-fat or nonfat yogurt. Low-fat, low-sodium cheese. Fats and oils Soft margarine without trans fats. Vegetable oil. Reduced-fat, low-fat, or light mayonnaise and salad dressings (reduced-sodium). Canola, safflower, olive, avocado, soybean, and sunflower oils. Avocado. Seasonings and condiments Herbs. Spices. Seasoning mixes without salt. Other foods Unsalted popcorn and pretzels. Fat-free sweets. The items listed above may not be a complete list of foods and beverages you can eat. Contact a dietitian for more information. What foods should I avoid? Fruits Canned fruit in a light or heavy syrup. Fried fruit. Fruit in cream or butter sauce. Vegetables Creamed or fried vegetables. Vegetables in a cheese sauce. Regular canned vegetables (not low-sodium or reduced-sodium). Regular canned tomato sauce and paste (not low-sodium or reduced-sodium). Regular tomato and vegetable juice (not low- sodium or reduced-sodium). Pickles. Olives. Grains Baked goods made with fat, such as croissants, muffins, or some breads. Dry pasta or rice meal packs. Meats and other proteins Fatty cuts of meat. Ribs. Fried meat. Dunn. Bologna, salami, and other precooked or cured meats, such as sausages or meat loaves. Fat from the back of a pig (fatback). Bratwurst. Salted nuts and seeds. Canned beans with added salt. Canned or smoked fish. Whole eggs or egg yolks. Chicken or turkey with skin. Dairy Whole or 2% milk, cream, and ojjz-vam-mupt. Whole or full-fat cream cheese. Whole-fat or sweetened yogurt. Full-fat cheese. Nondairy creamers. Whipped toppings. Processed cheese and cheese spreads. Fats and oils Butter. Stick margarine. Lard. Shortening. Ghee. Dunn fat. Tropical oils, such as coconut, palm kernel, or palm oil. Seasonings and condiments Onion salt, garlic salt, seasoned salt, table salt, and sea salt. Worcestershire sauce. Tartar sauce. Barbecue sauce. Teriyaki sauce. Soy sauce, including reduced-sodium. Steak sauce. Canned and packaged gravies. Fish sauce. Oyster sauce. Cocktail sauce. Store-bought horseradish. Ketchup. Mustard. Meat flavorings and tenderizers. Bouillon cubes. Hot sauces. Pre-made or packaged marinades. Pre- made or packaged taco seasonings. Relishes. Regular salad dressings. Other foods Salted popcorn and pretzels. The items listed above may not be a complete list of foods and beverages you should avoid. Contact a dietitian for more information. Where to find more information ? National Heart, Lung, and Blood [place]: www.nhlbi.nih.gov ? [place] Heart Association: www.heart.org ? Academy of Nutrition and Dietetics: www.eatright.org ? National Kidney Foundation: www.kidney.org Summary ? The DASH eating plan is a healthy eating plan that has been shown to reduce high blood pressure (hypertension). It may also reduce your risk for type 2 diabetes, heart disease, and stroke. ? When on the DASH eating plan, aim to eat more fresh fruits and vegetables, whole grains, lean proteins, low-fat dairy, and heart-healthy fats. ? With the DASH eating plan, you should limit salt (sodium) intake to 2,300 mg a day. If you have hypertension, you may need to reduce your sodium intake to 1,500 mg a day. ? Work with your health care provider or dietitian to adjust your eating plan to your individual calorie needs. This information is not intended to replace advice given to you by your health care provider. Make sure you discuss any questions you have with your health care provider. Document Revised: 10/03/2020 Document Reviewed: 10/03/2020 [employer] Patient Education ? 2022 [employer]. AMBULATORY VISIT SUMMARY Observed: 05/03 9:16 AM Status: F Source: [facility] REPOSITORY DARIEL AGUILERA :1940 Visit Date:05/03/2024 Ambulatory Visit Instructions Your Diagnosis DM type 2 causing vascular disease Longstanding persistent atrial fibrillation Mixed hyperlipidemia Hyponatremia Erectile dysfunction due to arterial insufficiency Syncope Your Care Team Attending Physician - Kylah Garcia MD Primary Care Physician - Kylah Garcia MD This Is Your Medications List Contact prescribing physician if questions or concerns Turmeric (Turmeric 500 mg oral capsule) atenolol (atenolol 25 mg Tab) cholecalciferol (D3) cholecalciferol (Vitamin D3 5000 intl units (125 mcg) oral tab) cyanocobalamin (Vitamin B12) finasteride (finasteride 5 mg Tab) gabapentin (gabapentin 300 mg Cap) glimepiride (glimepiride 2 mg Tab) levothyroxine (levothyroxine 25 mcg (0.025 mg) Tab) omeprazole (omeprazole 40 mg Cap-DR) pravastatin (pravastatin 40 mg Tab) sildenafil (sildenafil 100 mg Tab) sodium chloride (Sodium Chloride 1 g oral tablet) tamsulosin (tamsulosin 0.4 mg Cap) ubiquinone (CoQ10) warfarin (Jantoven 5 mg oral tablet) Procedures Performed Carpal tunnel release (03/26/2024), Carpal tunnel release, Surgery. What to do next Scheduled Follow-Up Appointments Tuesday 10:00 AM EDT With: Where: [facility] Tuesday 1:00 PM EDT With: Ericka COHN, Kashif Craig Where: [facility] 2023 9:15 AM EST With: Adam COHN, Kylah Cole Where: [facility] [place] [facility]/CLINIC NOTE Observed: 05/03/2024 9:14 AM Status: F Source: [facility] REPOSITORY HPI Staff Dariel is an 84 year old male presenting for 3 month follow up DM Had AMW this morning w/ [facility] done 05/01/24 normal Do you have any of the following symptoms? Foot Exam: none Eye Exam: due Last A1C: Hgb A1C %: 5.6 % (12/01/23 14:31:00) Statin: pravastatin 40mg questions/concerns: he and concerned cause he's passed out 3 different times and put in the hospital for it. Been seeing specialists that Dr Garcia has sent him to. History of Present Illness - Patient is here for follow-up. Patient had an annual wellness visit today. Patient's only question today is if he should be taking his Viagra since he has been passing out. Patient is seeing cardiology and did not tell web assistant or myself that he had been taking the Viagra when he started passing out. Today the patient is asking for refills on his Viagra. He is asking if we should be giving it to him if he is passing out because of it. Physical Exam General: alert, no acute distress ENMT: oral mucosa moist, hard of hearing Cardiovascular: irregular rate and rhythm, normal peripheral perfusion Respiratory: Lungs CTA, respirations non labored Extremities: no deformity, no trauma Neurological: oriented x 4, LOC appropriate for age, CN II-XII intact, motor strength equal & normal bilaterally, speech normal Abdomen: Soft, Nontender, Non-distended, + BS Assessment/Plan 1. 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) Will recheck A1c today. Was at goal at last visit. No concerns with medication. Follow-up in 6 months. Fingerstick A1c today. 2. Longstanding persistent atrial fibrillation (I48.11: Longstanding persistent atrial fibrillation) No issues today, anticoagulated with Coumadin. 3. Mixed hyperlipidemia (E78.2: Mixed hyperlipidemia) Continue statin as before. 4. Hyponatremia (E87.1: Hypo-osmolality and hyponatremia) Resolved at this time. 5. Erectile dysfunction due to arterial insufficiency (N52.01: Erectile dysfunction due to arterial insufficiency) Explained to the patient in detail he had never let us know that he was having passing out episodes after taking the Viagra. I do not feel comfortable giving him more Viagra at this time. Patient will need to be cleared by cardiology. Will put a message into cardiology so they know that this question will be asked at his next visit. If he is cleared by cardiology at that time we will consider refilling the patient's medication. 6. Syncope (R55: Syncope and collapse) Patient denies having any syncopal episodes since last time where he hit his head. See plan as per #5. Orders: atenolol, 25 mg = 1 tab(s), Oral, Daily, # 90 tab(s), Refills(s) 0, Pharmacy: [facility], 178.2, cm, 02/02/24 10:29:00 EDT, Height/Length Dosing, 84.1, kg, 02/02/24 10:29:00 EDT, Weight Dosing sodium chloride, See Instructions, TAKE 1 TABLET BY MOUTH TWICE DAY, # 90 tab(s), Refills(s) 2, Pharmacy: [facility]/pharmacy #[id number], 180.5, cm, 03/20/24 15:05:00 EDT, Height/Length Dosing, 82.5, kg, 03/20/24 15:05:00 EDT, Weight Dosing Follow-up No qualifying data available Patient Education Erectile Dysfunction Problem List/Past Medical History Ongoing ASCVD (arteriosclerotic cardiovascular disease) Carpal tunnel syndrome, left DM type 2 causing vascular disease Encounter for surveillance of abnormal nevi Erectile dysfunction due to arterial insufficiency Fall at home Hard of hearing Hyperlipidemia Longstanding persistent atrial fibrillation Osteoarthritis Syncope Trigger finger Historical Body mass index (BMI) of 25.0-25.9 in adult Procedure/Surgical History Carpal tunnel release (03/26/2024), Carpal tunnel release, Surgery. Medications atenolol 25 mg Tab, See Instructions, 5 refills CoQ10 D3, See Instructions finasteride 5 mg Tab, 5 mg= 1 tab(s), Oral, Daily, 1 refills gabapentin 300 mg Cap, 300 mg= 1 cap(s), Oral, Daily glimepiride 2 mg Tab, 2 mg= 1 tab(s), Oral, Daily, 1 refills Jantoven 5 mg oral tablet, 5 mg= 1 tab(s), Oral, Daily levothyroxine 25 mcg (0.025 mg) Tab, 25 mcg= 1 tab(s), Oral, Daily, 1 refills omeprazole 40 mg Cap-DR, 40 mg= 1 cap(s), Oral, Daily pravastatin 40 mg Tab, 40 mg= 1 tab(s), Oral, Daily sildenafil 100 mg Tab, 100 mg= 1 tab(s), Oral, Daily, PRN Sodium Chloride 1 g oral tablet, See Instructions tamsulosin 0.4 mg Cap, 0.4 mg= 1 cap(s), Oral, Daily Turmeric 500 mg oral capsule Vitamin B12 Vitamin D3 5000 intl units (125 mcg) oral tab, 125 mcg= 1 tab(s), Oral, Daily Allergies No Known Medication Allergies Social History Alcohol - Low Risk, 05/03/2024 Current, Liquor, 1-2 times per month, 1 drinks/episode average. Previous treatment: None. Alcohol use interferes with work or home: No. Drinks more than intended: No. Others hurt by drinking: No. Ready to change: No. Household alcohol concerns: No., 05/03/2024 Substance Abuse - Denies Substance Abuse, 03/06/2024 Tobacco - Denies Tobacco Use, 05/03/2024 Never (less than 100 in lifetime) Tobacco Use:. Never Smokeless Tobacco Use:., 04/20/2024 Family History Diabetes mellitus type 2: Mother. Immunizations Vaccine Date Status pneumococcal 20-valent conjugate vaccine 09/21/2023 Recorded influenza virus vaccine, inactivated 08/19/2023 Recorded pneumococcal 13-valent vaccine 03/31/2015 Recorded influenza virus vaccine, inactivated 08/02/2014 Recorded Result Comment: Electronical ly Signed By: Adam COHN, Kylah Lopez.br\Date and Time Signed: 05/03/24 09:15 EDT PATIENT EDUCATION Observed: 05/03/2024 9:14 AM Status: F Source: [facility] REPOSITORY Urology Erectile Dysfunction Erectile dysfunction (ED) is the inability to get or keep an erection in order to have sexual intercourse. ED is considered a symptom of an underlying disorder and is not considered a disease. ED may include: ? Inability to get an erection. ? Lack of enough hardness of the erection to allow penetration. ? Loss of erection before sex is finished. What are the causes? This condition may be caused by: ? Physical causes, such as: ? Artery problems. This may include heart disease, high blood pressure, atherosclerosis, and diabetes. ? Hormonal problems, such as low testosterone. ? Obesity. ? Nerve problems. This may include back or pelvic injuries, multiple sclerosis, Parkinson's disease, spinal cord injury, and stroke. ? Certain medicines, such as: ? Pain relievers. ? Antidepressants. ? Blood pressure medicines and water pills (diuretics). ? Cancer medicines. ? Antihistamines. ? Muscle relaxants. ? Lifestyle factors, such as: ? Use of drugs such as marijuana, cocaine, or opioids. ? Excessive use of alcohol. ? Smoking. ? Lack of physical activity or exercise. ? Psychological causes, such as: ? Anxiety or stress. ? Sadness or depression. ? Exhaustion. ? Fear about sexual performance. ? Guilt. What are the signs or symptoms? Symptoms of this condition include: ? Inability to get an erection. ? Lack of enough hardness of the erection to allow penetration. ? Loss of the erection before sex is finished. ? Sometimes having normal erections, but with frequent unsatisfactory episodes. ? Low sexual satisfaction in either partner due to erection problems. ? A curved penis occurring with erection. The curve may cause pain, or the penis may be too curved to allow for intercourse. ? Never having nighttime or morning erections. How is this diagnosed? This condition is often diagnosed by: ? Performing a physical exam to find other diseases or specific problems with the penis. ? Asking you detailed questions about the problem. ? Doing tests, such as: ? Blood tests to check for diabetes mellitus or high cholesterol, or to measure hormone levels. ? Other tests to check for underlying health conditions. ? An ultrasound exam to check for scarring. ? A test to check blood flow to the penis. ? Doing a sleep study at home to measure nighttime erections. How is this treated? This condition may be treated by: ? Medicines, such as: ? Medicine taken by mouth to help you achieve an erection (oral medicine). ? Hormone replacement therapy to replace low testosterone levels. ? Medicine that is injected into the penis. Your health care provider may instruct you how to give yourself these injections at home. ? Medicine that is delivered with a short applicator tube. The tube is inserted into the opening at the tip of the penis, which is the opening of the urethra. A tiny pellet of medicine is put in the urethra. The pellet dissolves and enhances erectile function. This is also called MUSE (medicated urethral system for erections) therapy. ? Vacuum pump. This is a pump with a ring on it. The pump and ring are placed on the penis and used to create pressure that helps the penis become erect. ? Penile implant surgery. In this procedure, you may receive: ? An inflatable implant. This consists of cylinders, a pump, and a reservoir. The cylinders can be inflated with a fluid that helps to create an erection, and they can be deflated after intercourse. ? A semi-rigid implant. This consists of two silicone rubber rods. The rods provide some rigidity. They are also flexible, so the penis can both curve downward in its normal position and become straight for sexual intercourse. ? Blood vessel surgery to improve blood flow to the penis. During this procedure, a blood vessel from a different part of the body is placed into the penis to allow blood to flow around (bypass) damaged or blocked blood vessels. ? Lifestyle changes, such as exercising more, losing weight, and quitting smoking. Follow these instructions at home: Medicines ? Take ojzk-ase-yemrxfk and prescription medicines only as told by your health care provider. Do not increase the dosage without first discussing it with your health care provider. ? If you are using self-injections, do injections as directed by your health care provider. Make sure you avoid any veins that are on the surface of the penis. After giving an injection, apply pressure to the injection site for 5 minutes. ? Talk to your health care provider about how to prevent headaches while taking ED medicines. These medicines may cause a sudden headache due to the increase in blood flow in your body. General instructions ? Exercise regularly, as directed by your health care provider. Work with your health care provider to lose weight, if needed. ? Do not use any products that contain nicotine or tobacco. These products include cigarettes, chewing tobacco, and vaping devices, such as e-cigarettes. If you need help quitting, ask your health care provider. ? Before using a vacuum pump, read the instructions that come with the pump and discuss any questions with your health care provider. ? Keep all follow-up visits. This is important. Contact a health care provider if: ? You feel nauseous. ? You are vomiting. ? You get sudden headaches while taking ED medicines. ? You have any concerns about your sexual health. Get help right away if: ? You are taking oral or injectable medicines and you have an erection that lasts longer than 4 hours. If your health care provider is unavailable, go to the nearest emergency room for evaluation. An erection that lasts much longer than 4 hours can result in permanent damage to your penis. ? You have severe pain in your groin or abdomen. ? You develop redness or severe swelling of your penis. ? You have redness spreading at your groin or lower abdomen. ? You are unable to urinate. ? You experience chest pain or a rapid heartbeat (palpitations) after taking oral medicines. These symptoms may represent a serious problem that is an emergency. Do not wait to see if the symptoms will go away. Get medical help right away. Call your local emergency services (911 in the [place] Do not drive yourself to the hospital. Summary ? Erectile dysfunction (ED) is the inability to get or keep an erection during sexual intercourse. ? This condition is diagnosed based on a physical exam, your symptoms, and tests to determine the cause. Treatment varies depending on the cause and may include medicines, hormone therapy, surgery, or a vacuum pump. ? You may need follow-up visits to make sure that you are using your medicines or devices correctly. ? Get help right away if you are taking or injecting medicines and you have an erection that lasts longer than 4 hours. This information is not intended to replace advice given to you by your health care provider. Make sure you discuss any questions you have with your health care provider. Document Revised: 01/27/2022 Document Reviewed: 01/27/2022 Elsevier Patient Education ? 2022 [employer] SCREENS Observed: 05/03/2024 9:01 AM Status: F Source: [facility] REPOSITORY [id number]#1.00TIFF ECHO TRANSTHORACIC COMPLETE Observed: 3:00 PM Status: F Source: [facility] REPOSITORY Echocardiology Procedure Exam Date/Time Accession # Ordering Echo Transthoracic 05/01/2024 15:00 EDT [id number] Kashif Barnett MD Complete CPT code 00261 [id number] Reason for Exam (Echo Transthoracic Complete) AFIB, Syncope R55;Other (please specify) Report Version: 1 Study ID: [id number] [facility] [address] [place] [address] Adult Echocardiogram Report Name: DARIEL AGUILERA Study Date: 05/01/2024, 2: 02 PM Patient Location: [facility] : 1940 (MM/DD/YYYY) Gender: Male Age: 84 Years Height: 177.8 cm BP: 143 / 76 mmHg Weight: 82.555 kg HR: 79 bpm BSA: 2.01 m? Ordering Physician: Kashif Barnett Referring Physician: Kashif Barnett Performed By: Elsa Cruz RUST Reason For Study: AFIB, Syncope History: Syncope, AFIB, ASCVD, DM Interpretation Summary Ejection Fraction = 60-65%. Normal LV size and systolic function. Borderline mildly dilated RV with normal function. Biatrial enlargement. Afib, cannot assess diastology. Moderate TR. Normal estimated PA pressure. Mildly dilated ascending aorta. Procedure A complete two-dimensional transthoracic echocardiogram was performed (2D, M- mode, spectral and color flow Doppler). Study quality is good. Left Ventricle The left ventricle is normal in size. There is normal left ventricular wall thickness. Ejection Fraction = 60-65%. The Echocardiology Report left ventricular wall motion is normal. Cannot assess diastology due to afib. Left Atrium The left atrium is mildly dilated. Right Atrium The right atrium is mild to moderately dilated. Right Ventricle The right ventricular systolic function is normal. The right ventricle size is borderline enlarged . The right ventricular wall motion is normal. Aortic Valve The aortic valve is trileaflet. No aortic regurgitation. There is aortic sclerosis without stenosis. Mitral Valve The mitral valve is normal in structure and function. There is Trace mitral regurgitation. No mitral valve stenosis. Tricuspid Valve Structurally normal tricuspid valve. There is moderate tricuspid regurgitation. Right ventricular systolic pressure is normal. Pulmonic Valve No evidence of stenosis. There is no pulmonic valve regurgitation. Arteries The aortic root is normal in size. The ascending aorta is mildly dilated. Pulmonary artery diameter is normal. Venous The inferior vena cava is normal in size, and collapses normally with respiration. Effusion There is no pericardial effusion. Left Ventricle IVSd: 1.18 cm LVIDd: 4.7 cm LVPWd: 1.28 cm LVIDs: 2.39 cm EDV(MOD-sp4): 73.5 ml LVLd ap4: 7.6 cm ESV(MOD-sp4): 27.6 ml LVLs ap4: 6.4 cm EDV(MOD-sp2): 83.2 ml LVLd ap2: 7.4 cm ESV(MOD-sp2): 39.0 ml LVLs ap2: 6.9 cm Right Ventricle TAPSE: 2.6 cm RV Base_phl: 4.0 cm RV Mid_phl: 3.6 cm RV Length_phl: 8.1 cm Aortic Valve LVOT diam: 2.07 cm LV V1 max: 67.4 cm/sec LV V1 max P.82 mmHg Ao max P.7 mmHg Ao V2 max: 138.5 cm/sec Tricuspid Valve TR max P.1 mmHg TR max sourav: 274.5 cm/sec Aorta Ao root diam: 3.3 cm Ao Sinus of Valsalva: 3.5 cm Ao Sinotubular Junction: 2.03 cm asc Aorta Diam: 3.7 cm Atria LA dimension: 4.4 cm Echocardiology Report Diastolic funtion MV dec time: 0.19 sec MV E max sourav: 92.8 cm/sec Ao max P.7 mmHg Ao root area: 8.7 cm? Ao root diam: 3.3 cm Ao Sinus of Valsalva: 3.5 cm Ao Sinotubular Junction: 2.03 cm Ao V2 max: 138.5 cm/sec AV VR: 0.49 SAMIA(V,D): 1.64 cm? EDV(MOD-sp4): 73.5 ml EDV(Teich): 100.6 ml EF(MOD-sp4): 62.4 % EF(Teich): 80.2 % ESV(MOD-sp4): 27.6 ml ESV(Teich): 19.9 ml FS: 48.8 % IVC Diam: 1.29 cm IVSd: 1.18 cm LA dimension: 4.4 cm LV V1 max: 67.4 cm/sec LV V1 max P.82 mmHg LVIDd: 4.7 cm LVIDs: 2.39 cm LVLd ap4: 7.6 cm LVLs ap4: 6.4 cm LVOT area: 3.4 cm? LVOT diam: 2.07 cm LVPWd: 1.28 cm MV dec time: 0.19 sec MV E max sourav: 92.8 cm/sec RA A4Cs_phl: 25.3 cm? RAP systole: 3.0 mmHg RV Base_phl: 4.0 cm RV Length_phl: 8.1 cm RV Mid_phl: 3.6 cm RVDd: 3.5 cm RVIDd/LVIDd: 0.75 RVSP(TR): 33.1 mmHg SV(MOD-sp4): 45.9 ml TAPSE: 2.6 cm TR max P.1 mmHg TR max sourav: 274.5 cm/sec asc Aorta Diam: 3.7 cm EDV(MOD-sp2): 83.2 ml EF (MOD-bp): 56.9 % EF(MOD-sp2): 53.1 % ESV(MOD-sp2): 39.0 ml Echocardiology Report LA Vol Index: 30.0 ml/m? LVLd ap2: 7.4 cm LVLs ap2: 6.9 cm Electronically signed by: Jason Vaughn MD 05/01/2024, 3: 22 PM FINAL REPORT Dictated: 05/01/2024 2:02 pm Jason Vaughn MD Signed (Electronic Signature): 05/01/2024 3:22 pm Signed by: Roderick COHN, Jason Pineda Transcribed by: JEFF Technologist: ILSA CONSENT FOR TREATMENT Observed: 05/01/20 1:28 PM Status: F Source: [facility] REPOSITORY [id number]#1.00TIFF NURSE CONSULTATION NOTE Observed: 2023 9:00 AM Status: F Source: [facility] REPOSITORY Reason for Visit Here for lab draw Assessment/Plan Medicare annual wellness visit, subsequent (Z00.00: Encounter for general adult medical examination without abnormal findings) Medications atenolol 25 mg Tab, 25 mg= 1 tab(s), Oral, Daily atenolol 25 mg Tab, See Instructions, 5 refills CoQ10 finasteride 5 mg Tab, 5 mg= 1 tab(s), Oral, Daily, 1 refills gabapentin 300 mg Cap, 300 mg= 1 cap(s), Oral, Daily glimepiride 2 mg Tab, 2 mg= 1 tab(s), Oral, Daily, 1 refills Jantoven 5 mg oral tablet, 5 mg= 1 tab(s), Oral, Daily levothyroxine 25 mcg (0.025 mg) Tab, 25 mcg= 1 tab(s), Oral, Daily, 1 refills omeprazole 40 mg Cap-DR, 40 mg= 1 [...] Oral, Daily Allergies No Known Medication Allergies Immunizations Vaccine Date Status pneumococcal 20-valent conjugate vaccine 09/21/2023 Recorded influenza virus vaccine, inactivated 08/19/2023 Recorded pneumococcal 13-valent vaccine 03/31/2015 Recorded influenza virus vaccine, inactivated 08/02/2014 Recorded LIPID PANEL Collected: 8:59 AM Status: F Source: [facility] REPOSITORY TYPE CODE TESTS RESULT OUT OF RANGE REFERENCE UNITS LAB 3-3(LOINC) CHOLESTEROL: MCNC:PT:SER/ PLAS:QN: 168 Normal 120-200 mg/dL LAB 2085-9(INC) CHOLESTEROL. IN HDL:MCNC:PT: SER/PLAS:QN: 54 Unknown mg/dL Result Comment: '>= 60 LOW R ISK' '<= 40 HIGH RISK' LAB 2089-1[facility] CHOLESTEROL. IN LDL:MCNC:PT: SER/PLAS:QN: 99 Normal <=129 mg/dL LAB 2571-8(LOINC) TRIGLYCERIDE :MCNC:PT:SER /PLAS:QN: 78 Normal <=149 mg/dL LAB 81625-8([facility]) CHOLESTEROL. IN VLDL:MCNC:PT :SER/PLAS:QN :CALCULATED 16 Normal 7-40 mg/dL Performed By: #### [id number] # ### [facility] [address] [place] [address] PSA SCREEN, TOTAL Collected: 4 8:59 AM Status: F Source: [facility] REPOSITORY TYPE CODE TESTS RESULT OUT OF RANGE REFERENCE UNITS LAB 2857-1([facility]) PROSTATE SPECIFIC AG:MCNC:PT:S ER/PLAS:QN: 1.3 Normal 0.1-3.5 ng/mL Result Comment: The concentr ation of PSA determined by different manufacturers can vary due to differences in assay methods and reagent specificity. Values obtained from different assay methods cannot be used interchangeably. The methodology used for this result was chemiluminescence using [employer] PSA reagent. Performed By: #### [id number] #### [facility] [address] [place] [address] CMP Collected: 4 8:59 AM Status: F Source: [facility] REPOSITORY TYPE CODE TESTS RESULT OUT OF RANGE REFERENCE UNITS LAB 2345-7(INC) GLUCOSE:MCNC: PT:SER/PLAS:Q N: 104 Normal 55-199 mg/dL LAB 3094-0(LOINC) UREA NITROGEN:MCNC :PT:SER/PLAS: QN: 15 Normal 5-21 mg/dL LAB 2160-0(LOINC) CREATININE:MC NC:PT:SER/DAR S:QN: 1.1 Normal 0.5-1.3 mg/dL LAB 42520-5([facility]) CALCIUM:MCNC: PT:SER/PLAS:Q N: 9.5 Normal 8.9-11.1 mg/dL LAB 2951-2([facility]) SODIUM:SCNC:P T:SER/PLAS:QN : 137 Normal 135-145 mmol/L LAB 2823-3([facility]) POTASSIUM:SCN C:PT:SER/PLAS :QN: 5.2 Normal 3.5-5.3 mmol/L LAB 2075-0([facility]) CHLORIDE:SCNC :PT:SER/PLAS: QN: 103 Normal 101-111 mmol/L LAB 2028-9([facility]) CARBON DIOXIDE:SCNC: PT:SER/PLAS:Q N: 29 Normal 21-31 mmol/L LAB 6768-6([facility]) ALKALINE PHOSPHATASE:C CNC:PT:SER/PL :QN: 83 Normal 21-98 Int._Unit /L LAB 1975-2([facility]) BILIRUBIN:MCN C:PT:SER/PLAS :QN: 0.9 Normal 0.0-1.1 mg/dL LAB 1751-7([facility]) ALBUMIN:MCNC: PT:SER/PLAS:Q N: 4.2 Normal 3.3-5.0 gm/dL LAB 2885-2([facility]) PROTEIN:MCNC: PT:SER/PLAS:Q N: 7.1 Normal 6.0-7.8 gm/dL LAB 1744-2([facility]) ALANINE AMINOTRANSFER ASE:CCNC:PT:S ER/PLAS:QN:NO ADDITION OF P-5'-P 14 Normal 6-46 Int._Unit /L LAB 1920-8([facility]) ASPARTATE AMINOTRANSFER ASE:CCNC:PT:S ER/PLAS:QN: 22 Normal 5-43 Int._Unit /L LAB 3097-3([facility]) UREA NITROGEN/CREA TININE:MRTO:P T:SER/PLAS:QN : 14 Normal 10-20 No Units LAB 70421-7([facility]) ANION GAP:SCNC:PT:S ER/PLAS:QN: 10 Normal 6-16 mEq/L LAB 69522-5(LOINC) GLOBULIN:MCNC :PT:SER:QN:CA LCULATED 2.9 Normal 1.4-4.0 gm/dL LAB 56712-9(INC) ALBUMIN/GLOBU DOLORES:MCRTO:PT: SER:QN: 1.4 Normal 1.1-2.2 Performed By: #### [id number] # ### [facility] [address] [place] [address] CBC W/ AUTO DIFF Collected: 05/01/2024 8:59 AM Statu s: F Source: [facility] REPOSITORY TYPE CODE TESTS RESULT OUT OF RANGE REFERENCE UNITS LAB 06849-1([facility]) LEUKOCYTES 4.2 Normal 4.0-11.0 E9/L LAB 789-8(INC) ERYTHROCYTES:NCN C:PT:BLD:QN:AUTO MATED COUNT 4.5 Normal 4.3-5.9 E12/L LAB 718-7(INC) HEMOGLOBIN:MCNC: PT:BLD:QN: 14.0 Normal 13.5-17.5 gm/dL LAB 4544-3(INC) HEMATOCRIT:VFR:P T:BLD:QN:AUTOMAT ED COUNT 42.2 Normal 37.7-49.0 % LAB 788-0(INC) ERYTHROCYTE DISTRIBUTION WIDTH:RATIO:PT:R BC:QN:AUTOMATED COUNT 14.4 High 10.9-14.2 % LAB 785-6(INC) ERYTHROCYTE MEAN CORPUSCULAR HEMOGLOBIN:ENTMA SS:PT:RBC:QN:AUT OMATED COUNT 30.8 Normal 27.0-34.0 pg LAB 786-4([facility]) ERYTHROCYTE MEAN CORPUSCULAR HEMOGLOBIN CONCENTRATION:MC NC:PT:RBC:QN:AUT OMATED COUNT 33.1 Normal 31.4-36.0 gm/dL LAB 787-2(INC) ERYTHROCYTE MEAN CORPUSCULAR VOLUME:ENTVOL:PT :RBC:QN:AUTOMATE D COUNT 92.9 Normal 80.0-100.0 fL LAB 43933-3(INC) PLATELET MEAN VOLUME:ENTVOL:PT :BLD:QN:AUTOMATE D COUNT 9.8 Normal 6.4-10.8 fL LAB [id number]([facility] ) Platelet 166.0 Normal 150.0-500.0 E9/L LAB 13383-9(INC) NEUTROPHILS/100 LEUKOCYTES:NFR:P T:BLD:QN: 53.4 Normal 36.0-75.0 % LAB 731-0(LOINC) LYMPHOCYTES:NCNC :PT:BLD:QN:AUTOM ATED COUNT 34.0 Normal 14.0-50.0 % LAB 742-7(INC) MONOCYTES:NCNC:P T:BLD:QN:AUTOMAT ED COUNT 0.4 Normal 0.2-1.0 E9/L LAB 713-8(INC) EOSINOPHILS/100 LEUKOCYTES:NFR:P T:BLD:QN:AUTOMAT ED COUNT 2.4 Normal 0.0-8.0 % LAB 704-7(INC) BASOPHILS:NCNC:P T:BLD:QN:AUTOMAT ED COUNT 0.9 Normal 0.0-2.0 % LAB 751-8([facility]) NEUTROPHILS:NCNC :PT:BLD:QN:AUTOM ATED COUNT 2.2 Normal 2.0-7.5 E9/L LAB 54548-8(INC) LYMPHOCYTES:NCNC :PT:BLD:QN: 1.4 Normal 1.0-4.0 E9/L LAB 25934-1(INC) EOSINOPHILS:NCNC :PT:BLD:QN: 0.1 Normal 0.0-0.5 E9/L LAB 99946-4([facility]) BASOPHILS/LEUKOC YTES:NFR.DF:PT:B LD:QN:AUTOMATED COUNT 0.0 Normal 0.0-0.2 E9/L Performed By: #### [id number] # ### [facility] [address] [place] [address] EGFR Collected: 4 8:59 AM Status: F Source: [facility] REPOSITORY Order Comment: Order added b y Discern Expert. TYPE CODE TESTS RESULT OUT OF RANGE REFERENCE UNITS LAB 85278748([facility]) eGFR 67 Normal >=59 mL/min/1 . 73 m2 Performed By: #### [id number] #### [facility] [address] [place] [address] LAB REPORTS Observed: 04/24/2024 9:00 AM Status: F Source: [facility] REPOSITORY [id number]#1.00TIFF INSURANCE CORRESPONDENCE Observed: 04/20 3:51 PM Status: F Source: [facility] REPOSITORY [id number]#1.00TIFF HEART AND VASCULAR OFFICE/CLINIC NOTE Observed: 04/20/2024 1:46 PM Status: F Source: [facility] REPOSITORY Chief Complaint here to establish care History of Present Illness The patient is an 83-year-old male with past cardiac history of atrial fibrillation, who presents for cardiac evaluation due to that, as well as status post mechanical falls secondary to syncopal events. He states that he was doing well until August of last year, when he briefly passed out while sitting on the bed. Second time, same thing happened around . Approximately a month ago, he had another syncopal spell which resulted in a mechanical fall. He reports no shortness of breath, chest pain, dizziness or lightheadedness, palpitations, PND or orthopnea. 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 with web assistant, location unknown, however, has not been followed by cardiology recently. Prior cardiac workup, available for me to review, included an ECG from March 07, which showed atrial fibrillation with slow ventricular response in the 50s. There is no evidence of ischemic changes. Review of Systems ROS - Provider Constitutional: no fever, no chills, no fatigue Skin:no rash, no lesions ENMT: no ear pain, no sore throat, no congestion. Respiratory: no shortness of breath, no cough, no wheezing. Cardiovascular: no chest pain, no palpitations, no edema. Gastrointestinal: no nausea, no vomiting, no diarrhea, no GI bleeding. Genitourinary: no dysuria, no frequencyno hematuria Musculoskeletal: no back pain, no trauma. Neurologic: no headache, no dizziness, no numbness, no weakness. Psychiatric: no sleeping problems, no irritability, no mood swings/depression. Heme/Lymph: no bleeding tendency, no bruising tendency, no petechiae, Allergy/Immuno logic: no seasonal allergies, no food allergies, no recurrent infections Physical Exam Vitals & Measurements HR: 62(Peripheral) BP: 138/78 SpO2: 97% HT: 71 in HT: 180 cm WT: 82.2 kg WT: 180.84 lb BMI: 25.37 General: alert, no acute distress Neck: Supple, noJVD nocarotid bruit Cardiovascular: irregularly-irregular rate and rhythm, no murmur normal peripheral perfusion Respiratory: Lungs CTAB, respirations non labored Extremities: no edema left lower extremity. no edema right lower extremity Neurological: oriented x 4, LOC appropriate for age, speech normal Skin: Warm, dry, intact- no rash or concerning lesions Assessment/Plan 1. Afib (I48.91: Unspecified atrial fibrillation) History of chronic atrial fibrillation, rate appears to be well-controlled, however, a bit slow based on the prior ECGs. I would like to decrease atenolol to 12.5 mg daily. Continue warfarin for cardioembolic protection. 2. Syncope (R55: Syncope and collapse) Recurrent syncope with high risk features. Suspicion for underlying conduction system disease. I would like to obtain a transthoracic echocardiogram to rule out structural heart disease and 48-hour Holter. If unremarkable, would recommend an implantable loop recorder. Follow-up No qualifying data available 1 month, earlier if clinically indicated Problem List/Past Medical History Ongoing Afib ASCVD (arteriosclerotic cardiovascular disease) Body mass index (BMI) of 25.0-25.9 in adult Carpal tunnel syndrome, left DM type 2 causing vascular disease ED (erectile dysfunction) Encounter for surveillance of abnormal nevi Fall at home Hyperlipidemia Hyponatremia Laceration of head Osteoarthritis Syncope Trigger finger Historical No qualifying data Procedure/Surgical History Carpal tunnel release (03/26/2024), Carpal tunnel release, Surgery. Medications atenolol 25 [...] 25 mcg= 1 tab(s), Oral, Daily, 1 refills omeprazole 40 mg Cap-DR, 40 mg= 1 [...] lifetime) Tobacco Use:. Never Smokeless Tobacco Use:., 04/20/2024 Family History Family history is unknown Immunizations Vaccine Date Status pneumococcal 20-valent conjugate vaccine 09/21/2023 Recorded influenza virus vaccine, inactivated 08/19/2023 Recorded pneumococcal 13-valent vaccine 03/31/2015 Recorded influenza virus vaccine, inactivated 08/02/2014 Recorded Result Comment: Electronical ly Signed By: Ericka COHN, Kashif Craig\.br\Date and Time Signed: 04/20/24 13:49 EDT CONSENT FOR TREATMENT Observed: 04/20/20 1:14 PM Status: F Source: [facility] REPOSITORY [id number]#1.00TIFF PHYSICIAN ORDER Observed: 04/20/2024 9:44 AM Status: F Source: [facility] REPOSITORY [id number]#1.00TIFF CONSULTATION NOTE Observed: 04/04/2024 9:01 AM Status: F Source: [facility] REPOSITORY [id number]#1.00TIFF POSTOPERATIVE DOCUMENTS Observed: 2023 11:51 AM Status: F Source: [facility] REPOSITORY [id number]#1.00TIFF INTRAOPERATIVE DOCUMENTS Observed: 03/28 1:45 PM Status: F Source: [facility] REPOSITORY [id number]#1.00TIFF CONSULTATION NOTE Observed: 03/28/2024 9:01 AM Status: F Source: [facility] REPOSITORY [id number]#1.00TIFF CONSULTATION NOTE Observed: 03/28/2024 9:01 AM Status: F Source: [facility] REPOSITORY [id number]#1.00TIFF PREOPERATIVE DOCUMENTS Observed: 9:05 AM Status: F Source: [facility] REPOSITORY [id number]#1.00TIFF INTRAOPERATIVE DOCUMENTS Observed: 03/27 9:05 AM Status: F Source: [facility] REPOSITORY [id number]#1.00TIFF CONSENT FOR ANESTHESIA Observed: 9:04 AM Status: F Source: [facility] REPOSITORY [id number]#1.00TIFF DISCHARGE INSTRUCTIONS Observed: 9:02 AM Status: F Source: [facility] REPOSITORY [id number]#1.00TIFF DISCHARGE INSTRUCTIONS Observed: 2:02 PM Status: F Source: [facility] REPOSITORY CLIFFORDDARIEL Solitario :1940 Visit Date:03/26/2024 Inpatient Discharge Instructions Your Care Team Admitting Physician - Axel Hernández DO Referring Physician - Axel Hernández DO Reason for Your Visit RIGHT LITTLE FINGER TRIGGER 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 Your Diagnosis Trigger finger, right little finger This Is Your Medications List Turmeric (Turmeric 500 mg oral capsule) acetaminophen-hydrocodone (Paterson 325 mg-5 mg oral tablet) atenolol (atenolol 25 mg Tab) cholecalciferol (Vitamin D3 5000 intl units (125 mcg) oral tab) cyanocobalamin (Vitamin B12) finasteride (finasteride 5 mg Tab) gabapentin (gabapentin 300 mg Cap) glimepiride (glimepiride 2 mg Tab) levothyroxine (levothyroxine 25 mcg (0.025 mg) Tab) omeprazole (omeprazole 40 mg Cap-DR) pravastatin (pravastatin 40 mg Tab) sildenafil (sildenafil 100 mg Tab) sodium chloride (Sodium Chloride 1 g oral tablet) tamsulosin (tamsulosin 0.4 mg Cap) ubiquinone (CoQ10) warfarin (Jantoven 5 mg oral tablet) Procedure History Carpal tunnel release, Surgery. What to do next Instructions From Your Doctor Event Name Event Result Discharge Instructions Freetext Resume Coumadin blood thinner the day after hand surgery. Discharge Activity Ambulate as tolerated, Arrange for a responsible adult supervision for 24 hours, Expect mild pain, Expect minimal amount of drainage and/or bleeding, Partial weight bearing, Do not lift more than 5 lbs Discharge Restrictions No driving for 24 hrs, Do not operate machinery or tools, Do not make important decisions for 24 hours, Do not drink alcoholic beverages for 24 hours Discharge Diet(s) Regular, Drink liquids and eat a light meal Call Your Doctor For Persistent or heavy bleeding, Temperature above 101.5 degrees, Redness, swelling, or pus at operative site, Severe pain at the operative site, Persistent vomiting Wound Care Keep incision dry, Remove dressing as instructed Remove Dressing On 2 Discharge Instructions Discharge Instructions New Follow Up Appointments after Discharge Follow Up with GORDO Weller When: 04/04/2024 10:15 AM EDT Comments: Keep scheduled appointment Where: [address] [place] [id number] (1) Medications What How Much When Why Instructions Next Dose Unchanged acetaminophen-hydrocodone (Paterson 325 mg-5 mg oral tablet) See instructions Trigger finger, right little finger 1 tab(s) Oral q4hr PRN Pain. Duration 7 days. Pickup at [facility]/pharmacy #[id number] Unchanged atenolol (atenolol 25 mg Tab) 1 Tablets By Mouth Every day Unchanged cholecalciferol (Vitamin D3 5000 intl units (125 mcg) oral tab) 1 Tablets By Mouth Every day Unchanged cyanocobalamin (Vitamin B12) Unchanged finasteride (finasteride 5 mg Tab) 1 Tablets By Mouth Every day Unchanged gabapentin (gabapentin 300 mg Cap) 1 Capsules By Mouth Every day Unchanged glimepiride (glimepiride 2 mg Tab) 1 Tablets By Mouth Every day Unchanged levothyroxine (levothyroxine 25 mcg (0.025 mg) Tab) 1 Tablets By Mouth Every day on an empty stomach Unchanged omeprazole (omeprazole 40 mg Cap-DR) 1 Capsules By Mouth Every day Unchanged pravastatin (pravastatin 40 mg Tab) 1 Tablets By Mouth Every day Unchanged sildenafil (sildenafil 100 mg Tab) 1 Tablets By Mouth Every day as needed for for erectile dysfunction 1 hour before sexual activity Unchanged sodium chloride (Sodium Chloride 1 g oral tablet) See instructions TAKE 1 TABLET BY MOUTH TWICE DAY Unchanged tamsulosin (tamsulosin 0.4 mg Cap) 1 Capsules By Mouth Every day Unchanged Turmeric (Turmeric 500 mg oral capsule) Unchanged ubiquinone (CoQ10) Unchanged warfarin (Jantoven 5 mg oral tablet) 1 Tablets By Mouth Every day Pharmacy Information [facility]/pharmacy #[id number]: [address], [place] [phone] Problems Ongoing - Any problem that you are currently receiving treatment for. Afib ASCVD (arteriosclerotic cardiovascular disease) Body mass index (BMI) of 25.0-25.9 in adult Carpal tunnel syndrome, left DM type 2 causing vascular disease ED (erectile dysfunction) Encounter for surveillance of abnormal nevi Fall at home Hyperlipidemia Hyponatremia Laceration of head Osteoarthritis Syncope Trigger finger [employer] Trigger Finger Trigger finger, also called stenosing tenosynovitis, is a condition that causes a finger to get stuck in a bent position. Each finger has a tendon, which is a tough, cord-like tissue that connects muscle to bone, and each tendon passes through a tunnel of tissue called a tendon sheath. To move your finger, your tendon needs to glide freely through the sheath. Trigger finger happens when the tendon or the sheath thickens, making it difficult to move your finger. Trigger finger can affect any finger or a thumb. It may affect more than one finger. Mild cases may clear up with rest and medicine. Severe cases require more treatment. What are the causes? Trigger finger is caused by a thickened finger tendon or tendon sheath. The cause of this thickening is not known. What increases the risk? The following factors may make you more likely to develop this condition: ? Doing activities that require a strong high speed operator. ? Having rheumatoid arthritis, gout, or diabetes. ? Being 40?60 years old. ? Being female. What are the signs or symptoms? Symptoms of this condition include: ? Pain when bending or straightening your finger. ? Tenderness or swelling where your finger attaches to the palm of your hand. ? A lump in the palm of your hand or on the inside of your finger. ? Hearing a noise like a pop or a snap when you try to straighten your finger. ? Feeling a catching or locking sensation when you try to straighten your finger. ? Being unable to straighten your finger. How is this diagnosed? This condition is diagnosed based on your symptoms and a physical exam. How is this treated? This condition may be treated by: ? Resting your finger and avoiding activities that make symptoms worse. ? Wearing a finger splint to keep your finger extended. ? Taking NSAIDs, such as ibuprofen, to relieve pain and swelling. ? Doing gentle exercises to stretch the finger as told by your health care provider. ? Having medicine that reduces swelling and inflammation (steroids) injected into the tendon sheath. Injections may need to be repeated. ? Having surgery to open the tendon sheath. This may be done if other treatments do not work and you cannot straighten your finger. You may need physical therapy after surgery. Follow these instructions at home: If you have a splint: ? Wear the splint as told by your health care provider. Remove it only as told by your health care provider. ? Loosen it if your fingers tingle, become numb, or turn cold and blue. ? Keep it clean. ? If the splint is not waterproof: ? Do not let it get wet. ? Cover it with a watertight covering when you take a bath or shower. Managing pain, stiffness, and swelling If directed, apply heat to the affected area as often as told by your health care provider. Use the heat source that your health care provider recommends, such as a moist heat pack or a heating pad. ? Place a towel between your skin and the heat source. ? Leave the heat on for 20?30 minutes. ? Remove the heat if your skin turns bright red. This is especially important if you are unable to feel pain, heat, or cold. You may have a greater risk of getting burned. If directed, put ice on the painful area. To do this: ? If you have a removable splint, remove it as told by your health care provider. ? Put ice in a plastic bag. ? Place a towel between your skin and the bag or between your splint and the bag. ? Leave the ice on for 20 minutes, 2?3 times a day. Activity ? Rest your finger as told by your health care provider. Avoid activities that make the pain worse. ? Return to your normal activities as told by your health care provider. Ask your health care provider what activities are safe for you. ? Do exercises as told by your health care provider. ? Ask your health care provider when it is safe to drive if you have a splint on your hand. General instructions ? Take lgtm-sdq-gszuqzt and prescription medicines only as told by your health care provider. ? Keep all follow-up visits as told by your health care provider. This is important. Contact a health care provider if: ? Your symptoms are not improving with home care. Summary ? Trigger finger, also called stenosing tenosynovitis, causes your finger to get stuck in a bent position. This can make it difficult and painful to straighten your finger. ? This condition develops when a finger tendon or tendon sheath thickens. ? Treatment may include resting your finger, wearing a splint, and taking medicines. ? In severe cases, surgery to open the tendon sheath may be needed. This information is not intended to replace advice given to you by your health care provider. Make sure you discuss any questions you have with your health care provider. Document Revised: 03/17/2020 Document Reviewed: 03/17/2020 [employer] Patient Education ? 2022 [employer] Common Emergency Awareness Tips IS IT A STROKE? Act FAST and Check for these signs: FACE Does the face look uneven? ARM Does one arm drift down? SPEECH Does their speech sound strange? TIME Call at any sign of stroke Heart Attack Signs Chest discomfort: Most heart attacks involve discomfort in the center of the chest and lasts more than a few minutes, or goes away and comes back. It can feel like uncomfortable pressure, squeezing, fullness or pain. Discomfort in upper body: Symptoms can include pain or discomfort in one or both arms, back, neck, jaw or stomach. Shortness of breath: With or without discomfort. Other signs: Breaking out in a cold sweat, nausea, or lightheaded. Remember, MINUTES DO MATTER. If you experience any of these heart attack warning signs, call to get immediate medical attention! Patient Survey You may receive a survey in the mail asking you about your stay with us. We want to hear from you, please share your experience with us by completing your survey. Thank you for choosing [facility]. Meng Award Nomination The MENG (Diseases Attacking the Immune SYstem) Award is an international recognition program that honors and celebrates the skillful, compassionate care nurses provide every day. Anyone who experiences or observes amazing care being provided by a nurse is encouraged to submit a nomination. To nominate your nurse, use your smart phone to scan the QR code below. Patient Portal You may access all of your results and other medical record information on our secure patient portal. If you are not signed up for this yet, please contact [employer] at [phone] to get signed up today. Patient Name: DARIEL AGUILERA I have received this information and my questions have been answered. Patient/Basting Machine Operator Name: Patient/Basting Machine Operator Signature: Relationship to Patient: Witness Name/Signature: Date: Result Comment: Electronical ly Signed By: Sloan KHAN, Rudy Pereira\.br\Date and Time Signed: 03/26/24 14:03 EDT PATIENT EDUCATION - TEXT Observed: 03/26 2:02 PM Status: C Source: [facility] REPOSITORY (Inserted Image. Unable to d isplay) Orthopedics Trigger Finger Trigger finger, also called stenosing tenosynovitis, is a condition that causes a finger to get stuck in a bent position. Each finger has a tendon, which is a tough, cord-like tissue that connects muscle to bone, and each tendon passes through a tunnel of tissue called a tendon sheath. To move your finger, your tendon needs to glide freely through the sheath. Trigger finger happens when the tendon or the sheath thickens, making it difficult to move your finger. Trigger finger can affect any finger or a thumb. It may affect more than one finger. Mild cases may clear up with rest and medicine. Severe cases require more treatment. What are the causes? Trigger finger is caused by a thickened finger tendon or tendon sheath. The cause of this thickening is not known. What increases the risk? The following factors may make you more likely to develop this condition: ? Doing activities that require a strong high speed operator. ? Having rheumatoid arthritis, gout, or diabetes. ? Being 40?60 years old. ? Being female. What are the signs or symptoms? Symptoms of this condition include: ? Pain when bending or straightening your finger. ? Tenderness or swelling where your finger attaches to the palm of your hand. ? A lump in the palm of your hand or on the inside of your finger. ? Hearing a noise like a pop or a snap when you try to straighten your finger. ? Feeling a catching or locking sensation when you try to straighten your finger. ? Being unable to straighten your finger. How is this diagnosed? This condition is diagnosed based on your symptoms and a physical exam. How is this treated? This condition may be treated by: ? Resting your finger and avoiding activities that make symptoms worse. ? Wearing a finger splint to keep your finger extended. ? Taking NSAIDs, such as ibuprofen, to relieve pain and swelling. ? Doing gentle exercises to stretch the finger as told by your health care provider. ? Having medicine that reduces swelling and inflammation (steroids) injected into the tendon sheath. Injections may need to be repeated. ? Having surgery to open the tendon sheath. This may be done if other treatments do not work and you cannot straighten your finger. You may need physical therapy after surgery. Follow these instructions at home: If you have a splint: ? Wear the splint as told by your health care provider. Remove it only as told by your health care provider. ? Loosen it if your fingers tingle, become numb, or turn cold and blue. ? Keep it clean. ? If the splint is not waterproof: ? Do not let it get wet. ? Cover it with a watertight covering when you take a bath or shower. Managing pain, stiffness, and swelling If directed, apply heat to the affected area as often as told by your health care provider. Use the heat source that your health care provider recommends, such as a moist heat pack or a heating pad. ? Place a towel between your skin and the heat source. ? Leave the heat on for 20?30 minutes. ? Remove the heat if your skin turns bright red. This is especially important if you are unable to feel pain, heat, or cold. You may have a greater risk of getting burned. If directed, put ice on the painful area. To do this: ? If you have a removable splint, remove it as told by your health care provider. ? Put ice in a plastic bag. ? Place a towel between your skin and the bag or between your splint and the bag. ? Leave the ice on for 20 minutes, 2?3 times a day. Activity ? Rest your finger as told by your health care provider. Avoid activities that make the pain worse. ? Return to your normal activities as told by your health care provider. Ask your health care provider what activities are safe for you. ? Do exercises as told by your health care provider. ? Ask your health care provider when it is safe to drive if you have a splint on your hand. General instructions ? Take ccmx-dlz-icysvnx and prescription medicines only as told by your health care provider. ? Keep all follow-up visits as told by your health care provider. This is important. Contact a health care provider if: ? Your symptoms are not improving with home care. Summary ? Trigger finger, also called stenosing tenosynovitis, causes your finger to get stuck in a bent position. This can make it difficult and painful to straighten your finger. ? This condition develops when a finger tendon or tendon sheath thickens. ? Treatment may include resting your finger, wearing a splint, and taking medicines. ? In severe cases, surgery to open the tendon sheath may be needed. This information is not intended to replace advice given to you by your health care provider. Make sure you discuss any questions you have with your health care provider. Document Revised: 03/17/2020 Document Reviewed: 03/17/2020 [employer] Patient Education ? 2022 [employer] PROGRESS NOTE-PHYSICIAN Observed: 2023 1:54 PM Status: F Source: [facility] REPOSITORY Patient: DARIEL AGUILERA Age: 83 years Sex: Male : 1940 Associated Diagnoses: None Author: Chau Cardona Jr, DO Postoperative Information Postoperative disposition: Postoperative disposition: To PACU. Optimetrix number: Optimetrix number [id number]. Anesthetic utilized: General. Health Status Allergies: Allergic Reactions (Selected) No Known Medication Allergies Physical Examination Vital Signs 03/26/2024 13:31 EDT Heart Rate Monitored 54 bpm LOW SpO2 97 % 03/26/2024 13:31 EDT Respiratory Rate 16 br/min 03/26/2024 13:30 EDT Temperature Axillary 36.3 DegC 03/26/2024 13:29 EDT Systolic Blood Pressure 125 mmHg Diastolic Blood Pressure 70 mmHg Blood Pressure Location Left arm Mean Arterial Pressure, Monitered 88 mmHg 03/26/2024 13:20 EDT Temperature Temporal Artery 36.4 DegC Heart Rate Monitored 54 bpm LOW Respiratory Rate Monitored 15 br/min Systolic Blood Pressure 104 mmHg Diastolic Blood Pressure 63 mmHg Mean Arterial Pressure, Cuff 77 mmHg SpO2 97 % Pain Assessment: Controlled. General: Awake, Alert, Appropriate. Respiratory: Adequate air exchange. Cardiovascular: Stable, Normal peripheral perfusion. Neurological: Normal sensory function, Normal motor function. Assessment Anesthetic outcome No anesthetic complications noted. Adequate pain relief. able to void without difficulty, able to ambulate with assist, tolerating PO intake, no N/V. Review / Management Condition: Stable. Plan Transfer/Discharge: Transfer/Discharge Discharge when meets criteria ( To home ). Result Comment: Electronical ly Signed By: Chau Cardona Jr, DO\micky\Date and Time Signed: 03/27/24 12:32 EDT MONITOR RECORD Observed: 03/26/2024 1:41 PM Status: F Source: [facility] REPOSITORY [id number]#1.00TIFF MONITOR RECORD Observed: 03/26/2024 1:41 PM Status: F Source: [facility] REPOSITORY [id number]#1.00TIFF OPERATIVE REPORT Observed: 03/26/2024 12:47 PM Status: F Source: [facility] REPOSITORY SURGERY DATE: 03/26/2024 MEDIA JOB TITLES: Chica Jolley C.F.A. PREOPERATIVE DIAGNOSIS: Right little and middle finger trigger digits POSTOPERATIVE DIAGNOSIS: Right little and middle finger trigger digits OPERATION: Right little and middle finger trigger release ANESTHESIA: General ESTIMATED BLOOD LOSS: Zero SPECIMEN: None IMPLANTS: None COMPLICATIONS: None. TOURNIQUET TIME: See nurse's record HISTORY AND INDICATIONS: Alexx is an 83-year-old male with progressive locking of the right little finger. The right middle finger was done in the past. He states over the last few weeks since scheduling, his right middle finger is locking again. This is added and updated to the consent form. He has had locking, catching of both the middle and little finger. He has tried conservative management. Please see office notes, History and Physical. Sites marked preoperatively of both digits. All questions are answered. Consent form signed and witnessed as well as updated with the right middle finger trigger release. PROCEDURE: Alexx was taken to the Operating Room and placed in supine position. Anesthesia provided. A well-padded tourniquet was placed on the right upper brachium. The arm was prepped and draped in sterile fashion. A time-out procedure occurred consistent with the consent form, History and Physical, preoperative marked site. Landmarks were identified. Once time-out was confirmed, the arm was exsanguinated and tourniquet was inflated. Transverse incisions were made over the middle and little finger A1 hortencia. The middle finger was encountered first. This had moderate thickening. There was no cyst or mass. The digital nerves were protected. The A1 hortencia of the middle finger was released centrally and further released proximally and distally with blunt dissection scissors, and complete release was achieved. There was no hour-glass deformity or space-occupying mass or lesion. There was a moderate amount of tendinopathy. It was taken through an arc of motion and deemed stable. It was irrigated out and the skin was closed with two horizontal mattress sutures of 4-0 nylon. The little finger was then encountered through a 1 cm incision. The digital nerves were protected. The A1 hortencia had moderate to severe thickening. There was no cyst or mass. The little finger A1 hortencia was released proximally and distally with blunt dissection scissors. Complete release was achieved. There was no hour- glass deformity. There was a moderate amount of tendinopathy. After copious irrigation it was taken through an arc of motion. The skin was closed with two horizontal mattress sutures of 4-0 nylon, 4 cc of 0.25% plain Marcaine was injected between the two incisions in the little and middle finger. Bacitracin, Adaptic, and well-padded sterile soft dressing were applied. Tourniquet was deflated. The patient was awakened from anesthesia and transferred to the Recovery Room in stable and satisfactory condition. CASE: Clean and elective COUNTS: Sponge and needle count correct SPECIMEN: None CONDITION: The patient's condition satisfactory Deanna Weller Dictated: 03/26/2024 [id number] Transcribed: 03/26/2024 cc:Kylah Garcia M.D. Result Comment: Electronical ly Signed By: Axel Hernández DO\.br\Date and Time Signed: 03/27/24 07:40 EDT MAIN OR PACU I RECORD Observed: 03/26/20 12:35 PM Status: F Source: [facility] REPOSITORY PACU Phase I Document Type F T Summary Primary Physician: Axel Hernández DO Finalized Date/Time: 03/26/24 13:38:42 Pt. Name: DARIEL AGUILERA/Sex: 1940 Male Med Rec #: [id number] Physician: Axel Hernández DO Financial #: [id number] Pt. Type: A Room/Bed: AS09 Admit/Disch: 03/26/24 09:11:44 - Institution: Case Times PACU I FT Pre-Care Text: Identifies barriers to communication and implements measures to provide psychological support Develops individualized plan of care, and ensures continuity of care Maintains patient's dignity and privacy, and maintains patient confidentiality Identifies and reports philosophical, cultural, and spiritual beliefs and values Identifies individual values and wishes concerning care Implements aseptic technique, and administers prescribed antibiotic therapy and immunizing agents as ordered Evaluates postoperative tissue perfusion Implements thermoregulation measures, and monitors body temperature Evaluates postoperative respiratory status Evaluates postoperative cardiac status Evaluates postoperative neurological status Assesses pain control, collaborated in initiating patient-controlled analgesia and implements alternative methods of pain control Verifies allergies, administers prescribed medications and solutions, evaluates response to medications Entry 1 In PACU I 03/26/24 12:55:00 Discharge from PACU 03/26/24 13:25:00 I Outcomes Met? Yes Last Modified By: Vicki Sethi RN 03/26/24 13:38:31 Post-Care Text: The patient demonstrates knowledge of the expected response to the operative or invasive procedure The patient's care is consistent with the individualized perioperative plan of care The patient's right to privacy is maintained The patient's value system, lifestyle, ethnicity, and culture are considered, respected, and incorporated into the perioperative plan of care The patient participates in decisions affecting his or her perioperative plan of care The patient is free from signs and symptoms of infection The patient has wound/tissue perfusion consistent with or improved from baseline levels established preoperatively The patient is at or returning to normothermia at the conclusion of the immediate postoperative period The patient's respiratory function is consistent with or improved from baseline levels established preoperatively The patient's cardiovascular status is consistent with or improved from baseline levels established preoperatively The patient's cardiovascular status is consistent with or improved from baseline levels established preoperatively The patient demonstrates and/or reports adequate pain control throughout the perioperative period The patient received appropriate medication(s), safely administered during the perioperative period Acuity Level PACU I FT Entry 1 Start Time 03/26/24 12:55:00 Stop Time 03/26/24 13:25:00 Acuity Level Acuity Level I Last Modified By: Vicki Sethi RN 03/26/24 13:38:40 Finalized By: Vicki Sethi RN Document Signatures Signed By: Vicki Sethi RN 03/26/24 13:38 MAIN OR PACU II RECORD Observed: 024 12:35 PM Status: F Source: [facility] REPOSITORY PACU Phase II Document Type FT Summary Primary Physician: Axel Hernández DO Finalized Date/Time: 03/26/24 16:11:30 Pt. Name: DARIEL AGUILERA/Sex: 1940 Male Med Rec #: [id number] Physician: Axel Hernández DO Financial #: [id number] Pt. Type: A Room/Bed: [facility] Admit/Disch: 03/26/24 09:11:44 - 03/26/24 14:30:00 Institution: Case Times PACU II FT Pre-Care Text: Identifies barriers to communication and implements measures to provide psychological support and determines knowledge level Develops individualized plan of care, and ensures continuity of care Maintains patient's dignity and privacy, and maintains patient confidentiality Identifies and reports philosophical, cultural, and spiritual beliefs and values Identifies individual values and wishes concerning care administers prescribed antibiotic therapy and immunizing agents as ordered, Evaluates postoperative tissue perfusion Implements thermoregulation measures, and monitors body temperature Evaluates postoperative respiratory status Evaluates postoperative cardiac status Evaluates postoperative neurological status Assesses pain control, collaborated in initiating patient-controlled analgesia and implements alternative methods of pain control Verifies allergies, administers prescribed medications and solutions, evaluates response to medications Entry 1 In PACU II 03/26/24 13:30:00 Discharge from PACU 03/26/24 14:30:00 II Outcomes Met? Yes Last Modified By: Rudy Lisa RN 03/26/24 16:11:14 Post-Care Text: The patient demonstrates knowledge of the expected response to the operative or invasive procedure The patient's care is consistent with the individualized perioperative plan of care The patient's right to privacy is maintained The patient's value system, lifestyle, ethnicity, and culture are considered, respected, and incorporated into the perioperative plan of care The patient participates in decisions affecting his or her perioperative plan of care. The patient is free from signs and symptoms of infection The patient has wound/tissue perfusion consistent with or improved from baseline levels established preoperatively The patient is at or returning to normothermia at the conclusion of the immediate postoperative period The patient's respiratory function is consistent with or improved from baseline levels established preoperatively The patient's cardiovascular status is consistent with or improved from baseline levels established preoperatively The patient's neurological status is consistent with or improved from baseline levels established preoperatively The patient demonstrates and/or reports adequate pain control throughout the perioperative period The patient received appropriate medication(s), safely administered during the perioperative period Finalized By: Rudy Lisa RN Document Signatures Signed By: Rudy Lisa RN 03/26/24 16:11 MAIN OR INTRAOPERATIVE RECORD Observed: 03/26/2024 12:35 PM Status: C Source: [facility] REPOSITORY IntraOp Document Type [facility] Physician: Axel Hernández DO Finalized Date/Time: 03/27/24 09:11:12 Pt. Name: CLIFFORDKassiDARIEL/Sex: 1940 Male Med Rec #: [id number] Physician: Axel Hernández DO Financial #: [id number] Pt. Type: A Room/Bed: [facility] Admit/Disch: 03/26/24 09:11:44 - 03/26/24 14:30:00 Institution: Case Times FT Entry 1 Patient Times In Room 03/26/24 12:20:00 Out Room 03/26/24 12:53:00 Procedure Times Start 03/26/24 12:35:00 Stop 03/26/24 12:45:00 Anesthesia Times Start 03/26/24 12:20:00 Stop 03/26/24 12:53:00 Last Modified By: Ambrocio Borges 03/26/24 13:03:30 General Comments: 03/27/24 Chart opened for charge review per Chuck Zazueta RN. NURIS Case Attendance FT Entry 1 Entry 2 Entry 3 Case Attendee Davie Driver DO, Michael T Sweene, Terry T Role Performed Anesthesiologist Surgeon - Primary Paster Supervisor - Primary Commercial Drone Pilot Time In 03/26/24 12:20:00 03/26/24 12:20:00 03/26/24 12:20:00 Time Out 03/26/24 12:53:00 03/26/24 12:53:00 03/26/24 12:53:00 Procedure FINGER TRIGGER FINGER TRIGGER FINGER TRIGGER RELEASE(Right) RELEASE(Right) RELEASE(Right) Comments DR CARDONA SUPERVISING Last Modified By: Ambrocio Borges Terry T Sweene, Terry T 03/26/24 13:03:32 03/26/24 13:03:32 03/26/24 13:03:32 Entry 4 Entry 5 Entry 6 Case Attendee Chica Jolley CST, Madison A Krupp RN, Rich Nickerson Role Performed RUG SETTER AXMINSTER/SA Scrub - Primary Staff - Other Time In 03/26/24 12:30:00 03/26/24 12:20:00 03/26/24 12:20:00 Time Out 03/26/24 12:53:00 03/26/24 12:53:00 03/26/24 12:33:00 Procedure FINGER TRIGGER FINGER TRIGGER FINGER TRIGGER RELEASE(Right) RELEASE(Right) RELEASE(Right) Comments ROOM ASSIST Last Modified By: Ambrocio Borges Terry T Sweene, Terry T 03/26/24 13:03:32 03/26/24 13:03:32 03/26/24 13:03:32 Perioperative Protocols FT Pre-Care Text: Implements protective measures prior to operative or invasive procedure, confirms identity before the operative or invasive procedure, verifies operative procedure, surgical site, and laterality Entry 1 Procedure(s) FINGER TRIGGER Patient Identity Birthday, ID Band RELEASE(Right) Verified (select at Check, Patient least 2): Participation Consents / H and P Anesthesia Consent, Operative Site Present Verified HandP, Surgery/Procedure Marking Verified Consent Surgical Site Yes Laterality Verified Yes Verified Procedure Verified Yes Correct Patient Yes Position Verified Availability Equipment, Medication Prep Dry Yes Verified (If Applicable) PreOp Antibiotic Yes Time Out Davie Driver, Given Participants Hernández DO, Jony Lobato Terry T, Wilhelm CST, Macie C, Chaput, Madison A Time Out Complete 03/26/24 12:34:00 Outcomes Met? Yes Last Modified By: Ambrocio Borges 03/26/24 13:03:51 Post-Care Text: The patient is free from signs and symptoms of injury caused by extraneous objects Allergy Information FT Pre-Care Text: Verifies allergies Entry 1 Allergies Reviewed? Yes Allergies Reviewed Self/Patient With Outcomes Met? Yes Last Modified By: Ambrocio Borges 03/26/24 12:35:40 Post-Care Text: The patient received appropriate medication(s) safely administered during the perioperative period Surgical Procedures FT Entry 1 Procedure Description Procedure FINGER TRIGGER RELEASE Modifiers Right Surgeon Description RIGHT LITTLE FINGER AND MIDDLE FINGER TRIGGER RELEASE Primary Procedure Yes Primary Surgeon Axel Hernández DO Start 03/26/24 12:35:00 Stop 03/26/24 12:45:00 Anesthesia Type General Surgical Service Orthopedics Wound Class 1 - Clean Last Modified By: Ambrocio Borges 03/26/24 13:03:37 General Case Data FT Pre-Care Text: Classifies surgical wound, implements aseptic technique, initiates traffic control Entry 1 Case Information OR OR 5 FT Case Level Level 2 Wound Class 1 - Clean Specialty Orthopedics ASA Class 3 Preop Diagnosis RIGHT LITTLE FINGER AND Postop Same As Preop Yes MIDDLE FINGER TRIGGER FINGER Postop Diagnosis RIGHT LITTLE FINGER AND Outcomes Met? Yes MIDDLE FINGER TRIGGER FINGER Last Modified By: Ambrocio Borges 03/26/24 12:36:29 Post-Care Text: The patient is free from signs and symptoms of infection Skin Assessment (Pre Procedure) FT Pre-Care Text: Implements protective measures to prevent skin/ tissue injury due to thermal or mechanical sources Evaluates for signs and symptoms of physical injury to skin and tissue Entry 1 Skin Integrity Intact, [place], Warm, and Skin Abnormality No Dry Outcomes Met? Yes Last Modified By: Ambrocio Borges 03/26/24 12:36:42 Post-Care Text: The patient is free from signs and symptoms of injury caused by extraneous objects Patient Positioning FT Pre-Care Text: Identifies physical alterations that require additional precautions for procedure-specific positioning, verifies presence of prosthetics or corrective devices, positions the patient, evaluates the patient for signs and symptoms of injury as a result of positioning Entry 1 Procedure FINGER TRIGGER Body Position Supine RELEASE(Right) Feet Uncrossed? Yes Left Arm Position Resting at Side Right Arm Position Extended on Hand Table Left Leg Position Extended Right Leg Position Extended Positioning Device Pillow Under Head Large, Safety Strap, Hand Table Press Points Checked Yes By Davie Driver Sweene, Terry T, Mariana KHAN, Rich Nickerson Outcomes Met? Yes Last Modified By: Ambrocio Borges 03/26/24 12:37:19 Post-Care Text: The patient is free from signs and symptoms of injury related to positioning Patient Care Devices FT Pre-Care Text: Implements protective measures to prevent skin/ tissue injury due to thermal or mechanical sources Entry 1 Entry 2 Entry 3 Equipment Type HAND TABLE MONITOR CHARGE SURGERY TOURNIQUET KATHI Equipment Number B Equipment Setting 300 MM HG Outcomes Met? Yes Yes Yes Last Modified By: Ambrocio Borges Terry T Sweene, Terry T 03/26/24 12:37:46 03/26/24 12:37:46 03/26/24 12:37:46 Post-Care Text: The patient is free from signs and symptoms of injury caused by extraneous objects Transport To OR FT Pre-Care Text: Transports according to individual needs. Evaluates for signs and symptoms of skin and tissue injury as a result of transfer or transport Entry 1 Via Cart By Ambrocio Borges Safety Precautions Side Rails Up Outcomes Met? Yes Last Modified By: Ambrocio Borges 03/26/24 12:37:53 Post-Care Text: The patient is free from signs and symptoms of injury related to transfer/transport Counts Verification FT Pre-Care Text: Performs required counts Entry 1 Entry 2 Procedure(s) FINGER TRIGGER FINGER TRIGGER RELEASE(Right) RELEASE(Right) Type Initial Final Items Sponges, Sharps Sponges, Sharps Status Correct Correct Time 03/26/24 12:18:00 03/26/24 12:43:00 By Mariana KHAN, Mariana Gordon RN, Nidhi Gordon Madison A Chaput, Madison A Outcomes Met? Yes Yes Last Modified By: Ambrocio Borges Terry T 03/26/24 12:39:37 03/26/24 12:45:31 Post-Care Text: The patient is free from signs and symptoms of injury caused by extraneous objects Skin Prep FT Pre-Care Text: Performs skin preparations Entry 1 Procedure FINGER TRIGGER Prep Area RIGHT HAND AND FOREARM RELEASE(Right) PREPPED UP TO TOURNIQUET RIGHT UPPER ARM Prep Agents Chloraprep/Dry Prior to Start Dry Time 03/26/24 12:27:00 Draping Stop Dry Time 03/26/24 12:30:00 Hair Removal Methods Not Indicated By Mariana KHAN, Rich Nickerson Outcomes Met? Yes Last Modified By: Ambrocio Borges 03/26/24 12:40:41 Post-Care Text: The patient is free from signs and symptoms of infection Departure From OR FT Pre-Care Text: Transports according to individual needs. Evaluates for signs and symptoms of skin and tissue injury as a result of transfer or transport. Entry 1 Via Cart Safety Precautions Side Rails Up PostOp Destination PACU Transported By Ambrocio Borges Patient Status Stable Skin. Condition Intact, [place], Warm, and Description TWO SMALL INCISIONS IN Dry PALM OF RIGHT HAND ARE WELL APPROXIMATED. DRESSING RIGHT HAND IS DRY AND INTACT. Airway Maintenance Oxygen in Use? Yes Airway Device Simple Mask Flow Rate 8 L Outcomes Met? Yes Last Modified By: Ambrocio Borges 03/26/24 13:04:51 Post-Care Text: The patient is free from signs and symptoms of injury related to transfer/transport General Comments: VERBAL AND WRITTEN REPORT GIVEN TO PACU NURSE. Serina BORGES RN. Dressing/Packing FT Pre-Care Text: Administers care to wound sites Entry 1 Type Dressing Items DRESSING ADAPTIC 3 X 3 Site and Details DRESSING RIGHT HAND - Outcomes Met? Yes BACITRACIN, ADAPTIC, 4X4, CAST PADDING, ALEC WRAP Last Modified By: Ambrocio Borges 03/26/24 12:43:42 Post-Care Text: The patient is free from signs and symptoms of infection Medication Administration FT Pre-Care Text: Verifies allergies, administers prescribed medications and solutions, administers prescribed antibiotic therapy and immunizing agents as ordered, evaluates response to medications Administers prescribed medications and solutions Entry 1 Route of Admin Field Expiration Date Yes Verified Ordered By Axel Hernández DO Transcribed/To Ambrocio Borges Field By Administered By Axel Hernández DO Outcomes Met? Yes Last Modified By: Ambrocio Borges 03/26/24 12:44:06 Post-Care Text: The patient received appropriate medication(s) safely administered during the perioperative period For [facility] please see scanned medication reconcilliation form for medications used at the field during the procedure. Tourniquet FT Pre-Care Text: Implements protective measures to prevent skin/tissue injury due to mechanical sources Entry 1 Tourniquet Type TOURNIQUET CUFF RED 18 Setting 250 mmHg X 4 Equipment Number B Placement Right Forearm Cuff Size 18 267 Padding Under Cuff Yes Applied Applied By Rich Peña RN Skin Assessment Unremarkable Before Inflation Skin Assessment Unremarkable After Inflation Tourniquet Times Inflated 03/26/24 12:34:00 Deflated 03/26/24 12:45:00 Total Time 11 minute(s) Outcomes Met? Yes Last Modified By: Ambrocio Borges 03/26/24 13:05:07 Post-Care Text: The patient is free from signs and symptoms of injury caused by extraneous objects Sign Out FT Entry 1 Before Patient Leaves OR Nurse verbally Yes Nurse verbally Yes confirms with the confirms with the team the name of team that the procedure(s) instrument, sponge, recorded and needle counts are correct (or N/A) Nurse verbally n/a Nurse verbally Yes confirms with the confirms with the team how the team whether there specimen is labeled are any equipment (including patient problems to be name), if applicable addressed Sign Out Complete 03/26/24 12:43:00 Last Modified By: Ambrocio Borges 03/26/24 12:45:44 Case Comments <None> Finalized By: Carlita KHAN, DYANA, Niki Document Signatures Signed By: Ambrocio Borges 03/26/24 13:05 DYANA Zazueta RN, Melinda 03/27/24 09:11 MAIN OR PREOPERATIVE RECORD Observed: 12:35 PM Status: C Source: [facility] REPOSITORY PreOp Document Type FT [facility] Primary Physician: Axel Hernández DO Finalized Date/Time: 03/26/24 13:07:41 Pt. Name: DARIEL AGUILERA/Sex: 1940 Male Med Rec #: [id number] Physician: Axel Hernández DO Financial #: [id number] Pt. Type: A Room/Bed: AS09 Admit/Disch: 03/26/24 09:11:44 - Institution: Case Times PreOp FT Pre-Care Text: Verifies consent for planned procedure, identifies individual values and wishes concerning care, includes family members in perioperative teaching Entry 1 Patient Times. In Pre Surgery 03/26/24 09:30:00 Out Pre Surgery 03/26/24 12:18:00 Outcomes Met? Yes Last Modified By: Ambrocio Borges 03/26/24 13:05:21 Post-Care Text: The patient participates in decisions affecting his or her perioperative plan of care Finalized By: Ambrocio Borges Document Signatures Signed By: Ambrocio Borges 03/26/24 13:05 Ambrocio Borges 03/26/24 13:07 CONSENT FOR PROCEDURE/SURGERY Observed: 03/26/2024 11:15 AM Status: F Source: [facility] REPOSITORY [id number] PROGRESS NOTE-PHYSICIAN Observed: 2023 11:14 AM Status: F Source: [facility] REPOSITORY Patient: DARIEL AGUILERA MRN: [id number] Age: 83 years Sex: Male : 1940 Associated Diagnoses: None Author: Chau Cardona Jr, DO Preoperative Information Anesthesia Preop Info: Time patient last ate or drank 03/26/2024 00:00:00. Anesthesia history: Patient history: None. Family history+: None. Informed consent: Signed by patient. Re-evaluation prior to induction: Initial evaluation reviewed: No significant change. Review of Systems Eye: Negative except as documented in history of present illness. Ear/Nose/Mouth/Throat: Negative except as documented in history of present illness. Respiratory: Negative except as documented in history of present illness. Cardiovascular: Negative except as documented in history of present illness. Musculoskeletal: Negative except as documented in history of present illness. Neurologic: Negative except as documented in history of present illness. Health Status Allergies: Allergic Reactions (Selected) No Known Medication Allergies Problem list: All Problems DM type 2 causing vascular disease / SNOMED CT 769232707 / Confirmed Trigger finger / SNOMED CT 479946075 / Confirmed Syncope / SNOMED CT 238668515 / Confirmed Body mass index (BMI) of 25.0-25.9 in adult / SNOMED CT 6495211729 / Confirmed Osteoarthritis / SNOMED CT 1574255062 / Confirmed Encounter for surveillance of abnormal nevi / SNOMED CT 3170515859 / Confirmed Laceration of head / SNOMED CT 0495506934 / Confirmed Hyponatremia / SNOMED CT 549045186 / Confirmed Hyperlipidemia / SNOMED CT 89167151 / Confirmed Fall at home / SNOMED CT 37089983 / Confirmed ED (erectile dysfunction) / SNOMED CT 5331630633 / Confirmed Carpal tunnel syndrome, left / SNOMED CT 91001978 / Confirmed Afib / SNOMED CT 57247349 / Confirmed ASCVD (arteriosclerotic cardiovascular disease) / SNOMED CT 795336296 / Confirmed Histories Procedure history: Surgery, neck X 2 (617155246). Carpal tunnel release (171379713). Social History Social & Psychosocial Habits Alcohol 03/26/2024 Use: Current Frequency: 1-2 times per month Comment: maybe 3x/ month - 03/06/2024 08:23 - Deedee KHAN, Bernarda Craig Substance Abuse 03/26/2024 Risk Assessment: Denies Substance Abuse Tobacco 03/26/2024 Tobacco Use: Never (less than 100 in l Smokeless tobacco use: Never . Physical Examination Airway: Mallampati classification: II (soft palate, fauces, uvula visible). Respiratory: adequate air exchange. Cardiovascular: Regular rhythm. Plan [place] [employer]esthesi[employer] (ASA) physical status classification: Class III. Anesthetic Preoperative Plan: Anesthesia General. Result Comment: Electronical ly Signed By: Chau Cardona Jr, DO\.br\Date and Time Signed: 03/27/24 12:32 EDT H&P UPDATE Observed: 03/26/2024 10:02 AM Status: F Source: [facility] REPOSITORY [id number] PT & PTT Collected: 10:00 AM Status: F Source: [facility] REPOSITORY TYPE CODE TESTS RESULT OUT OF RANGE REFERENCE UNITS LAB 5902-2([facility]) COAGULATION TISSUE FACTOR INDUCED:TIME:P T:PPP:QN:COAG 13.4 High 9.4-12.5 second( s) Result Comment: 15 days - 4 weeks 1 - 5 months 6 -11 months 1 ? 5 years 6 ? 10 years 11 -17 years Mean: 11.2 (9.5 ? 12.6) Mean: 11.0 (9.7 ? 12.8) Mean: 11.0 (9.8 ? 13.0) Mean: 11.3 (9.9 ? 13.4) Mean: 11.7 (10.0 ? 14.6) Mean: 11.8 (10.0 - 14.1) Pediatric Reference ranges were obtained from a study by Jose Gomez et al. prepared from 1437 samples obtained at 7 different centers using the same coagulation reagent and instrumentation as [facility]. Currently there are no coagulation studies available worldwide for children to 14 days, and no normal ranges. LAB 22461-3([facility] ) COAGULATION SURFACE INDUCED:TIME:P T:PPP:QN:COAG 35.8 Normal 25.1-36.5 second( s) Result Comment: Parameter 15 days - 4 weeks 1 - 5 months 6 - 11 months 1 - 5 years 6 - 10 years 11 - 17 years PTT Mean: 35.4 (27.6-45.6) Mean: 33.5 (24.8-40.7) Mean: 32.4 (25.1-40.7) Mean: 31.6 (24.0-39.2) Mean: 31.6 (26.9-38.7) Mean: 31.0 (24.6-38.4) Pediatric Reference ranges were obtained from a study by Jose Gomez et al. prepared from 1437 samples obtained at 7 different centers using the same coagulation reagent and instrumentation as [facility]. Currently there are no coagulation studies available worldwide for children to 14 days, and no normal ranges. Heparin therapeutic range (represented by Anti-Factor Xa activity of 0.2 - 0.4 U/mL) corresponds to PTT of 56.6 - 109.0 sec. LAB 6301-6([facility]) COAGULATION TISSUE FACTOR INDUCED.INR:RE LTIME:PT:PPP:Q N:COAG 1.19 Unknown Result Comment: INR results are specifically intended to assess patients stabilized on long-term Anticoagulation therapy suggested INR?s ?Less Intensive Anticoagulation? 2.0 ? 3.0 Conventional Range 3.0 ? 4.5 Performed By: #### [id number] #### [facility] [address] [place] [address] CAPILLARY GLUCOSE POC Collected: 2023 9:53 AM Status: F Source: [facility] REPOSITORY TYPE CODE TESTS RESULT OUT OF RANGE REFERENCE UNITS LAB 21599296([facility]) Glucose Cap 92 Normal 55-99 mg/d L Result Comment: Notified RN/ MD Performed By: #### [id number] #### [facility] [address] [place] [id number] CONSENT FOR TREATMENT Observed: 03/26/20 9:13 AM Status: F Source: [facility] REPOSITORY [id number]#1.00TIFF OUTPATIENT SURGERY DISCHARGE INSTRUCTION Observed: 03/20/2024 5:17 PM Status: F Source: [facility] REPOSITORY (Inserted Image. Unable to d isplay) [address] [address] Patient Discharge Instructions PERSON INFORMATION Name: CLIFFORDDARIEL Solitario Date of : 1940 Current Date: 03/20/2024 17:16:59 PHYSICIANS Admitting Physician: Axel Hernández DO Discharge Diagnosis: Trigger finger, right little finger DARIEL AGUILERA has been given the following list of follow-up instructions, prescriptions, and patient education materials: PATIENT FOLLOW-UP INFORMATION Diet: Regular, Drink liquids and eat a light meal Discharge Activity: Ambulate as tolerated, Arrange for a responsible adult supervision for 24 hours, Expect mild pain, Expect minimal amount of drainage and/or bleeding, Partial weight bearing, Do not lift more than 5 lbs Discharge Restrictions: No driving for 24 hrs, Do not operate machinery or tools, Do not make important decisions for 24 hours, Do not drink alcoholic beverages for 24 hours Call Your Doctor For: Persistent or heavy bleeding, Temperature above 101.5 degrees, Redness, swelling, or pus at operative site, Severe pain at the operative site, Persistent vomiting Wound Care Instructions: Keep incision dry, Remove dressing as instructed Remove Your Dressing In 2 Days Additional Instructions: Resume Coumadin blood thinner the day after hand surgery. IF UNABLE TO CONTACT YOUR PHYSICIAN AND YOU FEEL IT IS AN EMERGENCY, GO TO THE NEAREST EMERGENCY ROOM OR CALL 911 IVJ JOSEPH, have received the attached patient education materials/instructions and have verbalized understanding: May we do a follow up call? Yes No I was present when discharge instructions were given Patient Signature Date Clinican/Nurse Signature Date Follow up: With: Address: When: Axel Hernández [address] [place] [id number] [employer] (1) Comments: Keep scheduled appointment Type Location Start [facility] 03/26/2024 12:30 PM 03/26/2024 12:45 PM Confirmed FM Lab Draw [facility] 05/01/2024 9:00 AM 05/01/2024 9:20 AM Confirmed FM Medicare Wellness Subsequent [facility] 05/03/2024 8:00 AM 05/03/2024 9:00 AM Confirmed FM Open [facility] 05/03/2024 9:00 AM 05/03/2024 9:15 AM Confirmed Pharmacy Information: You may receive a survey from [employer] asking you to rate your care experience. Your feedback is important and will help us understand what we do well and how we can improve the quality of care we provide to you, your loved ones and our community. It?s an honor to serve you. Thank you for choosing [facility] HERE ARE THE MEDICATION CHANGES THAT OCCURRED DURING YOUR HOSPITAL STAY Medications to Continue Taking That Have Changed Other Medications START: warfarin (Jantoven 5 mg oral tablet) 1 Tablets By Mouth every day., takes one pill every other day, 0.5 pill every other day Medications to Continue with No Changes Other Medications atenolol (atenolol 25 mg Tab) 1 Tablets By Mouth every day. Refills: 0. cholecalciferol (Vitamin D3 5000 intl units (125 mcg) oral tab) 1 Tablets By Mouth every day. cyanocobalamin (Vitamin B12) finasteride (finasteride 5 mg Tab) 1 Tablets By Mouth every day. Refills: 0. gabapentin (gabapentin 300 mg Cap) 1 Capsules By Mouth every day. Refills: 0. glimepiride (glimepiride 2 mg Tab) 1 Tablets By Mouth every day. Refills: 1. levothyroxine (levothyroxine 25 mcg (0.025 mg) Tab) 1 Tablets By Mouth every day. on an empty stomach. Refills: 1. omeprazole (omeprazole 40 mg Cap-DR) 1 Capsules By Mouth every day. Refills: 0. pravastatin (pravastatin 40 mg Tab) 1 Tablets By Mouth every day. Refills: 0. sildenafil (sildenafil 100 mg Tab) 1 Tablets By Mouth every day as needed for erectile dysfunction. 1 hour before sexual activity. Refills: 0. sodium chloride (Sodium Chloride 1 g oral tablet) TAKE 1 TABLET BY MOUTH TWICE DAY. Refills: 2. tamsulosin (tamsulosin 0.4 mg Cap) 1 Capsules By Mouth every day. Refills: 0. Turmeric (Turmeric 500 mg oral capsule) ubiquinone (CoQ10) PATIENT EDUCATION INFORMATION Instructions: Trigger Finger Trigger finger, also called stenosing tenosynovitis, is a condition that causes a finger to get stuck in a bent position. Each finger has a tendon, which is a tough, cord-like tissue that connects muscle to bone, and each tendon passes through a tunnel of tissue called a tendon sheath. To move your finger, your tendon needs to glide freely through the sheath. Trigger finger happens when the tendon or the sheath thickens, making it difficult to move your finger. Trigger finger can affect any finger or a thumb. It may affect more than one finger. Mild cases may clear up with rest and medicine. Severe cases require more treatment. What are the causes? Trigger finger is caused by a thickened finger tendon or tendon sheath. The cause of this thickening is not known. What increases the risk? The following factors may make you more likely to develop this condition: ? Doing activities that require a strong high speed operator. ? Having rheumatoid arthritis, gout, or diabetes. ? Being 40?60 years old. ? Being female. What are the signs or symptoms? Symptoms of this condition include: ? Pain when bending or straightening your finger. ? Tenderness or swelling where your finger attaches to the palm of your hand. ? A lump in the palm of your hand or on the inside of your finger. ? Hearing a noise like a pop or a snap when you try to straighten your finger. ? Feeling a catching or locking sensation when you try to straighten your finger. ? Being unable to straighten your finger. How is this diagnosed? This condition is diagnosed based on your symptoms and a physical exam. How is this treated? This condition may be treated by: ? Resting your finger and avoiding activities that make symptoms worse. ? Wearing a finger splint to keep your finger extended. ? Taking NSAIDs, such as ibuprofen, to relieve pain and swelling. ? Doing gentle exercises to stretch the finger as told by your health care provider. ? Having medicine that reduces swelling and inflammation (steroids) injected into the tendon sheath. Injections may need to be repeated. ? Having surgery to open the tendon sheath. This may be done if other treatments do not work and you cannot straighten your finger. You may need physical therapy after surgery. Follow these instructions at home: If you have a splint: ? Wear the splint as told by your health care provider. Remove it only as told by your health care provider. ? Loosen it if your fingers tingle, become numb, or turn cold and blue. ? Keep it clean. ? If the splint is not waterproof: ? Do not let it get wet. ? Cover it with a watertight covering when you take a bath or shower. Managing pain, stiffness, and swelling If directed, apply heat to the affected area as often as told by your health care provider. Use the heat source that your health care provider recommends, such as a moist heat pack or a heating pad. ? Place a towel between your skin and the heat source. ? Leave the heat on for 20?30 minutes. ? Remove the heat if your skin turns bright red. This is especially important if you are unable to feel pain, heat, or cold. You may have a greater risk of getting burned. If directed, put ice on the painful area. To do this: ? If you have a removable splint, remove it as told by your health care provider. ? Put ice in a plastic bag. ? Place a towel between your skin and the bag or between your splint and the bag. ? Leave the ice on for 20 minutes, 2?3 times a day. Activity ? Rest your finger as told by your health care provider. Avoid activities that make the pain worse. ? Return to your normal activities as told by your health care provider. Ask your health care provider what activities are safe for you. ? Do exercises as told by your health care provider. ? Ask your health care provider when it is safe to drive if you have a splint on your hand. General instructions ? Take exxz-ihx-fnlldbc and prescription medicines only as told by your health care provider. ? Keep all follow-up visits as told by your health care provider. This is important. Contact a health care provider if: ? Your symptoms are not improving with home care. Summary ? Trigger finger, also called stenosing tenosynovitis, causes your finger to get stuck in a bent position. This can make it difficult and painful to straighten your finger. ? This condition develops when a finger tendon or tendon sheath thickens. ? Treatment may include resting your finger, wearing a splint, and taking medicines. ? In severe cases, surgery to open the tendon sheath may be needed. This information is not intended to replace advice given to you by your health care provider. Make sure you discuss any questions you have with your health care provider. Document Revised: 03/17/2020 Document Reviewed: 03/17/2020 [employer] Patient Education ? 2022 [employer]. Medication Leaflets: INPATIENT PATIENT SUMMARY Observed: 05/2024 5:16 PM Status: F Source: [facility] REPOSITORY (Inserted Image. Unable to d isplay) [place] [id number] [facility] Clinical Discharge Instructions PERSON INFORMATION Name: DARIEL AGUILERA PHYSICIANS Admitting Physician: Axel Hernández DO Attending Physician: xAel Hernández DO PCP: Kylah Garcia MD Discharge Diagnosis: Trigger finger, right little finger Comment: PATIENT EDUCATION INFORMATION Instructions: Trigger Finger Medication Leaflets: Follow up: With: Address: When: Axel Hernández [address] [place], [place] [id number] [employer] (1) Comments: Keep scheduled appointment Type Location Start [facility] 03/26/2024 12:30 PM 03/26/2024 12:45 PM Confirmed Lab Draw [facility] 05/01/2024 9:00 AM 05/01/2024 9:20 AM Confirmed FM Medicare Wellness Subsequent [facility] 05/03/2024 8:00 AM 05/03/2024 9:00 AM Confirmed FM Open [facility] 05/03/2024 9:00 AM 05/03/2024 9:15 AM Confirmed MEDICATION LIST Medications to Continue Taking That Have Changed Other Medications START: warfarin (Jantoven 5 mg oral tablet) 1 Tablets By Mouth every day., takes one pill every other day, 0.5 pill every other day Medications to Continue with No Changes Other Medications atenolol (atenolol 25 mg Tab) 1 Tablets By Mouth every day. Refills: 0. cholecalciferol (Vitamin D3 5000 intl units (125 mcg) oral tab) 1 Tablets By Mouth every day. cyanocobalamin (Vitamin B12) finasteride (finasteride 5 mg Tab) 1 Tablets By Mouth every day. Refills: 0. gabapentin (gabapentin 300 mg Cap) 1 Capsules By Mouth every day. Refills: 0. glimepiride (glimepiride 2 mg Tab) 1 Tablets By Mouth every day. Refills: 1. levothyroxine (levothyroxine 25 mcg (0.025 mg) Tab) 1 Tablets By Mouth every day. on an empty stomach. Refills: 1. omeprazole (omeprazole 40 mg Cap-DR) 1 Capsules By Mouth every day. Refills: 0. pravastatin (pravastatin 40 mg Tab) 1 Tablets By Mouth every day. Refills: 0. sildenafil (sildenafil 100 mg Tab) 1 Tablets By Mouth every day as needed for erectile dysfunction. 1 hour before sexual activity. Refills: 0. sodium chloride (Sodium Chloride 1 g oral tablet) TAKE 1 TABLET BY MOUTH TWICE DAY. Refills: 2. tamsulosin (tamsulosin 0.4 mg Cap) 1 Capsules By Mouth every day. Refills: 0. Turmeric (Turmeric 500 mg oral capsule) ubiquinone (CoQ10) Comment: FAMILY MEDICINE OFFICE/CLINIC NOTE Observed: 03/20/2024 3:30 PM Status: F Source: [facility] REPOSITORY HPI Staff Dariel is an 83 year old male presenting for ER follow up needs his andre removed ER followup: Hospital: [facility] Visit date: 03/10/24 Symptoms the patient presented with: fell, hit his head Current concerns: he had fallen straight on to his back and about a day or 2 after the fall his lower back started hurting. reviewed his hold meds 5 days prior to surgery and he's to take his atenolol and levothyroxine the morning of surgery with small sip of water per surgeon History of Present Illness - Please see staff HPI. Physical Exam Vitals & Measurements T: 36.4 ?C(Temporal Artery) HR: 581(Peripheral) RR: 98 BP: 132/80 HT: 71 in HT: 180.5 cm WT: 82.5 kg WT: 181.5 lb BMI: 25.32 - 4 sutures removed. No complications Assessment/Plan 1. Afib (I48.91: Unspecified atrial fibrillation) - Stable. - Hold coumadin tomorow for surgery Ordered: [facility] Internal Ambulatory Referral 2. Fall at home (W19.XXXA: Unspecified fall, initial encounter) - 2/2 syncope - Nausea before syncope - Will refer to Cardio for evaluation of continues syncope Ordered: [facility] Internal Ambulatory Referral 3. Laceration of head (S01.91XA: Laceration without foreign body of unspecified part of head, initial encounter) - Stables removed - no issues. Ordered: [facility] Internal Ambulatory Referral 4. Syncope (R55: Syncope and collapse) - Will send to Cardio for further work up Ordered: [facility] Internal Ambulatory Referral 5. Hyponatremia (E87.1: Hypo-osmolality and hyponatremia) - Recheck BMP today - Follow up with Nephrology Ordered: [facility] Internal Ambulatory Referral 6. Over weight (E66.3: Overweight) - Diet and exercise advised Ordered: Body Mass Index (BMI) documented 3008F Current tobacco non-user 1036F Fall Risk Screen 2 or more w/injury 1100F Influenza immunization administered or previously received 4274F Most recent diastolic blood pressure 80-89 mm Hg 3079F Systolic BP 130-139 mm Hg (Most Recent) 3075F 7. BMI 25.0-25.9,adult (Z68.25: Body mass index [BMI] 25.0-25.9, adult) - As above Ordered: Body Mass Index (BMI) documented 3008F Current tobacco non-user 1036F Fall Risk Screen 2 or more w/injury 1100F Influenza immunization administered or previously received 4274F Most recent diastolic blood pressure 80-89 mm Hg 3079F Systolic BP 130-139 mm Hg (Most Recent) 3075F Follow-up No qualifying data available Problem List/Past Medical History Ongoing Afib ASCVD (arteriosclerotic cardiovascular disease) Body mass index (BMI) of 25.0-25.9 in adult Carpal tunnel syndrome, left DM type 2 causing vascular disease ED (erectile dysfunction) Encounter for surveillance of abnormal nevi Fall at home Hyperlipidemia Hyponatremia Laceration of head Osteoarthritis Syncope Trigger finger Historical No qualifying data Procedure/Surgical [...] lifetime) Tobacco Use:. Never Smokeless Tobacco Use:., 03/20/2024 Family History Family history is unknown Immunizations Vaccine Date Status pneumococcal 20-valent conjugate vaccine 09/21/2023 Recorded influenza virus vaccine, inactivated 08/19/2023 Recorded pneumococcal 13-valent vaccine 03/31/2015 Recorded influenza virus vaccine, inactivated 08/02/2014 Recorded Result Comment: Electronical ly Signed By: Kylah Garcia MD\.br\Date and Time Signed: 03/20/24 15:31 EDT AMBULATORY VISIT SUMMARY Observed: 03/20 3:19 PM Status: F Source: [facility] REPOSITORY DARIEL AGUILERA :1940 Visit Date:03/20/2024 Ambulatory Visit Instructions Your Diagnosis Afib Fall at home Laceration of head Syncope Hyponatremia Over weight BMI 25.0-25.9,adult Your Care Team Attending Physician - Kylah [...] (0.025 mg) Tab) omeprazole (omeprazole 40 mg Cap-DR) pravastatin (pravastatin 40 mg Tab) sildenafil (sildenafil 100 mg Tab) sodium chloride (Sodium Chloride 1 g oral tablet) tamsulosin (tamsulosin 0.4 mg Cap) ubiquinone (CoQ10) warfarin (Jantoven 5 mg oral tablet) Procedures Performed Carpal tunnel release, Surgery. Discharge Vitals Temperature (Temporal Artery) 36.4 ?C Heart Rate (Peripheral) 581 Respiratory Rate 98 Blood Pressure 132/80 Height 180.5 cm Height 71 in Weight 82.5 kg Weight 181.5 lb BMI 25.32 What to do next Scheduled Follow-Up Appointments Romain 2023 12:30 PM EDT With: Where: [facility] Surgical Services Tuesday 9:00 AM EDT With: Where: [facility] LAB REPORTS Observed: 03/20/2024 9:01 AM Status: F Source: [facility] REPOSITORY [id number]#1.00TIFF RAD - MISC Observed: 03/20/2024 9:01 AM Status: F Source: [facility] REPOSITORY [id number]#1.00TIFF HISTORY AND PHYSICAL Observed: 7:36 AM Status: F Source: [facility] REPOSITORY [id number]#1.00TIFF CONSENT FOR PROCEDURE/SURGERY Observed: 03/20/2024 7:35 AM Status: F Source: [facility] REPOSITORY [id number]#1.00TIFF ECG 12-LEAD Observed: 03/10/2024 9:01 AM Status: F Source: [facility] REPOSITORY [id number]#1.00TIFF RAD - MISC Observed: 03/10/2024 9:01 AM Status: F Source: [facility] REPOSITORY [id number]#1.00TIFF RAD - CT REPORT Observed: 03/10/2024 9:01 AM Status: F Source: [facility] REPOSITORY [id number]#1.00TIFF ED NOTE-PHYSICIAN Observed: 03/10/2024 9:01 AM Status: F Source: [facility] REPOSITORY [id number]#1.00TIFF RAD - CT REPORT Observed: 03/10/2024 9:01 AM Status: F Source: [facility] REPOSITORY [id number]#1.00TIFF PHYSICIAN REFERRAL Observed: 03/08/2024 1:44 PM Status: F Source: [facility] REPOSITORY [id number]#1.00TIFF FAMILY MEDICINE OFFICE/CLINIC NOTE Observed: 03/08/2024 1:29 PM Status: F Source: [facility] REPOSITORY HPI Staff Dariel is an 83 year old male presenting for surgical clearance Needs clearance and hold coumadin in writing and faxed to Dr Hernández at [phone] Note: he would really benefit for chronic care management if he qualifies ( he walks in here at least once a week with questions Date of surgery: March 26, 2024 Surgeon: Dr Hernández Hospital: [facility] Type of Surgery: rt little finger [...] disorder) - Will send to Derm. Ordered: [facility] External Ambulatory Referral Follow-up No qualifying [...] Recorded influenza virus vaccine, inactivated 08/02/2014 Recorded Result Comment: Electronical ly Signed By: Adam COHN, Kylah Lopez.br\Date and Time Signed: 03/08/24 13:31 EDT PATIENT EDUCATION Observed: 03/08/2024 1:28 PM Status: F Source: [facility] REPOSITORY Nutrition BMI for Adults What is BMI? [...] numbers. This can be done either in [place] ([place] or metric measurements. Note that charts and online BMI calculators are available to help you find your BMI quickly and easily without having to do these calculations yourself. To calculate your BMI in [place] ([place] measurements: 1. Measure your weight in [...] for Disease Control and Prevention: www.cdc.gov ? [place] Heart [employer]: www.heart.org ? National Heart, Lung, and Blood [place]: www.nhlbi.nih.gov Summary ? Body mass index (BMI) is a number that is calculated from a person's weight and height. ? BMI may help estimate how much of a person's weight is composed of fat. BMI can help identify those who may be at higher risk for certain medical problems. ? BMI can be measured using [place] measurements or metric measurements. ? BMI charts are used to identify whether you are underweight, normal weight, overweight, or obese. This information is not intended to replace advice given to you by your health care provider. Make sure you discuss any questions you have with your health care provider. Document Revised: 07/23/2020 Document Reviewed: 05/30/2020 [employer] Patient Education ? 2022 [employer]. AMBULATORY VISIT SUMMARY Observed: 03/08 1:26 PM Status: F Source: [facility] REPOSITORY DARIEL AGUILERA :1940 Visit Date:03/08/2024 Ambulatory Visit Instructions Your [...] (0.025 mg) Tab) omeprazole (omeprazole 40 mg Cap-DR) pravastatin (pravastatin 40 mg Tab) sildenafil (sildenafil [...] Appointments Tuesday 1:45 PM EDT With: Where: [facility] Services Tuesday 9:00 AM EDT With: Where: [facility] XR CHEST 2 VIEWS Observed: 03/06/2024 8:47 AM Status: F Source: [facility] REPOSITORY Exam Date/Time: 03/06/2024 08:58 EDT Reason for [...] in mGy = na DAP = na BMP Collected: 8:38 AM Status: F Source: [facility] REPOSITORY TYPE CODE TESTS RESULT OUT OF RANGE REFERENCE UNITS LAB 2345-7([facility]) GLUCOSE:MCNC :PT:SER/PLAS :QN: 98 Normal 55-199 mg/dL LAB 3094-0(LOINC) UREA NITROGEN:MCN C:PT:SER/DAR S:QN: 14 Normal 5-21 mg/dL LAB 2160-0(LOINC) CREATININE:M CNC:PT:SER/P LAS:QN: 1.0 Normal 0.5-1.3 mg/dL LAB 3097-3(LOINC) UREA NITROGEN/CRE ATININE:MRTO :PT:SER/PLAS :QN: 14 Normal 10-20 No Units LAB 89377-8[facility] CALCIUM:MCNC :PT:SER/PLAS :QN: 9.1 Normal 8.9-11.1 mg/dL LAB 2951-2([facility]) SODIUM:SCNC: PT:SER/PLAS: QN: 136 Normal 135-145 mmol/L LAB 2823-3([facility]) POTASSIUM:SC NC:PT:SER/PL :QN: 4.3 Normal 3.5-5.3 mmol/L LAB 2075-0([facility]) CHLORIDE:SCN C:PT:SER/DAR S:QN: 102 Normal 101-111 mmol/L LAB 2027-9([facility]) CARBON DIOXIDE:SCNC :PT:SER/PLAS :QN: 28 Normal 21-31 mmol/L LAB 63353-5([facility]) ANION GAP:SCNC:PT: SER/PLAS:QN: 10 Normal 6-16 mEq/L Performed By: #### [id number], [id number], [id number] #### [facility] [address] [place] [address] EGFR Collected: 8:38 AM Status: F Source: [facility] REPOSITORY Order Comment: Order added b y Discern Expert. TYPE CODE TESTS RESULT OUT OF RANGE REFERENCE UNITS LAB [id number]([facility]) eGFR 75 Normal >=59 mL/min/1 . 73 m2 Performed By: #### [id number], [id number], [id number] #### [facility] [address] [place] [address] CBC W/ AUTO DIFF Collected: 03/06/2024 8:38 AM Statu s: F Source: [facility] REPOSITORY TYPE CODE TESTS RESULT OUT OF RANGE REFERENCE UNITS LAB 06064-1([facility]) LEUKOCYTES 4.6 Normal 4.0-11.0 E9/L LAB 789-8([facility]) ERYTHROCYTES:NCN C:PT:BLD:QN:AUTO MATED COUNT 4.3 Normal 4.3-5.9 E12/L LAB 718-7([facility]) HEMOGLOBIN:MCNC: PT:BLD:QN: 13.0 Low 13.5-17.5 gm/dL LAB 4544-3([facility]) HEMATOCRIT:VFR:P T:BLD:QN:AUTOMAT ED COUNT 39.1 Normal 37.7-49.0 % LAB 788-0(LOINC) ERYTHROCYTE DISTRIBUTION WIDTH:RATIO:PT:R BC:QN:AUTOMATED COUNT 14.0 Normal 10.9-14.2 % LAB 785-6(INC) ERYTHROCYTE MEAN CORPUSCULAR HEMOGLOBIN:ENTMA SS:PT:RBC:QN:AUT OMATED COUNT 30.3 Normal 27.0-34.0 pg LAB 786-4(INC) ERYTHROCYTE MEAN CORPUSCULAR HEMOGLOBIN CONCENTRATION:MC NC:PT:RBC:QN:AUT OMATED COUNT 33.3 Normal 31.4-36.0 gm/dL LAB 787-2(INC) ERYTHROCYTE MEAN CORPUSCULAR VOLUME:ENTVOL:PT :RBC:QN:AUTOMATE D COUNT 91.2 Normal 80.0-100.0 fL LAB 89940-1(INC) PLATELET MEAN VOLUME:ENTVOL:PT :BLD:QN:AUTOMATE D COUNT 9.7 Normal 6.4-10.8 fL LAB [id number](INC ) Platelet 157.0 Normal 150.0-500.0 E9/L LAB 50990-2(INC) NEUTROPHILS/100 LEUKOCYTES:NFR:P T:BLD:QN: 55.3 Normal 36.0-75.0 % LAB 731-0(INC) LYMPHOCYTES:NCNC :PT:BLD:QN:AUTOM ATED COUNT 31.0 Normal 14.0-50.0 % LAB 742-7(LOINC) MONOCYTES:NCNC:P T:BLD:QN:AUTOMAT ED COUNT 0.4 Normal 0.2-1.0 E9/L LAB 713-8(INC) EOSINOPHILS/100 LEUKOCYTES:NFR:P T:BLD:QN:AUTOMAT ED COUNT 3.9 Normal 0.0-8.0 % LAB 704-7(LOINC) BASOPHILS:NCNC:P T:BLD:QN:AUTOMAT ED COUNT 1.0 Normal 0.0-2.0 % LAB 751-8(LOINC) NEUTROPHILS:NCNC :PT:BLD:QN:AUTOM ATED COUNT 2.5 Normal 2.0-7.5 E9/L LAB 24775-0(LOINC) LYMPHOCYTES:NCNC :PT:BLD:QN: 1.4 Normal 1.0-4.0 E9/L LAB 10539-4([facility]) EOSINOPHILS:NCNC :PT:BLD:QN: 0.2 Normal 0.0-0.5 E9/L LAB 72104-5([facility]) BASOPHILS/LEUKOC YTES:NFR.DF:PT:B LD:QN:AUTOMATED COUNT 0.0 Normal 0.0-0.2 E9/L Performed By: #### [id number], [id number], [id number] #### [facility] [address] [place] [address] CONSENT FOR TREATMENT Observed: 03/06/20 7:59 AM Status: F Source: [facility] REPOSITORY [id number]#1.00TIFF CONSULTATION NOTE Observed: 02/15/2024 9:01 AM Status: F Source: [facility] REPOSITORY [id number]#1.00TIFF LAB REPORTS Observed: 02/14/2024 9:01 AM Status: F Source: [facility] REPOSITORY [id number]#1.00TIFF PHYSICIAN REFERRAL Observed: 02/02/2024 1:36 PM Status: F Source: [facility] REPOSITORY [id number]#1.00TIFF FAMILY MEDICINE OFFICE/CLINI C NOTE Observed: 02/02/2024 11:39 AM Status: F Source: [facility] REPOSITORY HPI Staff Dariel is an 83 year old male presenting for 2 month follow up DM Needs refills of levothyroxine and glimiperide to [facility] Do you have any of the following symptoms? Foot Exam: none Eye Exam: due Last A1C: Hgb A1C %: 5.6 % (12/01/23 14:31:00) Statin: pravastatin 40mg questions/concerns: saw kidney specialist (Rashad) about 3 weeks ago ( no report in file) was told to stop the omeprazole and meloxicam and cut salt tablets from tid to bid. Also says [facility] sent him a letter and said you [...] his left side. The patient saw his cardiac monitor technician on 12/28/2023. His omeprazole and meloxicam were [...] cardiovascular disease) (I25.10: Atherosclerotic heart disease of [place] coronary artery without angina pectoris) He has no issues today. He has no chest pain. He will continue on the beta- dimitris and the pravastatin. 3. Afib (I48.91: Unspecified [...] with voice recognition artificial intelligence software, specifically [employer], [employer] and or [employer]. Substitutions may have occurred due to the inherent limitations of voice recognition and artificial intelligence software. ATTESTATION: Documentation services were performed after patient or guardian consented to allow [employer] to record this visit. MELISSA epic cupid specialists and provider reviewed before signing. MELISSA: Danielle [...] History Tobacco Never (less than 100 in lifetime) Tobacco Use:. Never Smokeless Tobacco Use:., 02/02/2024 Immunizations Vaccine Date Status pneumococcal 20-valent conjugate vaccine 09/21/2023 Recorded influenza virus vaccine, inactivated 08/19/2023 Recorded pneumococcal 13-valent vaccine 03/31/2015 Recorded influenza virus vaccine, inactivated 08/02/2014 Recorded Result Comment: Electronical ly Signed By: Kylah Garcia MD\.br\Date and Time Signed: 02/07/24 12:44 EDT\.br\Electronically Co-Signed By: Allie Conway\.br\Date and Time Co-Signed: 02/02/24 11:43 EDT AMBULATORY VISIT SUMMARY Observed: 02/01 10:47 AM Status: F Source: [facility] REPOSITORY DARIEL AGUILERA :1940 Visit Date:02/02/2024 Ambulatory Visit [...] Appointments Tuesday 9:00 AM EDT With: Where: [facility] [place] LAB REPORTS Observed: 01/04/2024 9:01 AM Status: F Source: [facility] REPOSITORY [id number]#1.00TIFF TRANSFER IN Observed: 12/07/2023 9:01 AM Status: F Source: [facility] REPOSITORY [id number]#1.00TIFF AUTH FOR RELEASE OF MEDICAL RECORDS Observed: 12/06/2023 9:01 AM Status: F Source: [facility] REPOSITORY [id number]#1.00TIFF FAMILY MEDICINE OFFICE/CLINI C NOTE Observed: 12/01/2023 5:41 PM Status: F Source: [facility] REPOSITORY HPI Staff Dariel is an 83 year [...] records from Dr. Jada Rene. 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 He and his family relocated from [place] to [place] 7 months ago, but they originally grew up in [place]. Review of Systems PHQ Score Initial Depression [...] cardiovascular disease) (I25.10: Atherosclerotic heart disease of [place] coronary artery without angina pectoris) He will [...] with voice recognition artificial intelligence software, specifically [employer], [employer] and or [employer]. Substitutions may have occurred due to the inherent limitations of voice recognition and artificial intelligence software. Documentation services were performed after patient or guardian consented to allow [employer] to record this visit. MELISSA epic cupid specialists and provider reviewed before signing. MELISSA: Allie [...] History Tobacco Never (less than 100 in lifetime) Tobacco Use:. Never Smokeless Tobacco Use:., 12/01/2023 Immunizations Vaccine Date Status pneumococcal 20-valent conjugate vaccine 09/21/2023 Recorded influenza virus vaccine, inactivated 08/19/2023 Recorded pneumococcal 13-valent vaccine 03/31/2015 Recorded influenza virus vaccine, inactivated 08/02/2014 Recorded Result Comment: Electronical ly Signed By: Kylah Garcia MD\.br\Date and Time Signed: 12/02/23 08:22 EST\.br\Electronically Co-Signed By: Allie Conway\.br\Date and Time Co-Signed: 12/01/23 17:49 EST AMBULATORY VISIT SUMMARY Observed: 12/01 2:34 PM Status: F Source: [facility] REPOSITORY DARIEL AGUILERA :1940 Visit Date:12/01/2023 Ambulatory Visit [...] you for choosing us for your care. U MICROALB Collected: 4 2:32 PM Status: F Source: [facility] REPOSITORY TYPE CODE TESTS RESULT OUT OF RANGE REFERENCE UNITS LAB 70176398(LOINC) U Microalb <2.0 Normal 0.0-19.0 micr ogram /mL Performed By: #### [id number], [id number] #### [facility] [address] [place] [address] U PROTEIN/CREAT RATIO Collected: 2023 2:32 PM Status: F Source: [facility] REPOSITORY TYPE CODE TESTS RESULT OUT OF RANGE REFERENCE UNITS LAB 77012033(LOIN C) Ur Total Protein <6.0 Unknown mg/dL LAB 68484654(LOIN C) U Creatinine 62.5 Unknown mg/dL LAB CD:[id number] (LOINC) U Prot/Creat Ratio NOT CALCULATED Unknown .00-200.00 mg/gm Cr Performed By: #### [id number], [id number] #### [facility] [address] [place] [address] CMP Collected: 4 2:31 PM Status: F Source: [facility] REPOSITORY TYPE CODE TESTS RESULT OUT OF RANGE REFERENCE UNITS LAB 18637742([facility] ) Glucose Lvl 72 Normal 55-199 mg/dL LAB 74534976(INC ) BUN 11 Normal 5-21 mg/dL LAB 3342267(INC) Creatinine 1.1 Normal 0.5-1.3 mg/dL LAB 08672371([facility] ) Calcium Lvl 8.7 Low 8.9-11.1 mg/dL LAB 15337515([facility] ) Sodium Lvl 139 Normal 135-145 mmol/L LAB 80451414([facility] ) Potassium Lvl 4.2 Normal 3.5-5.3 mmol/L LAB 16347542(INC ) Chloride 104 Normal 101-111 mmol/L LAB 17062229([facility] ) CO2 30 Normal 21-31 mmol/L LAB 01249036([facility] ) Alk Phos 75 Normal 21-98 Int._Unit /L LAB 06524720([facility] ) Bili Total 0.9 Normal 0.0-1.1 mg/dL LAB 06654851([facility] ) Albumin Lvl 3.9 Normal 3.3-5.0 gm/dL LAB 39773005([facility] ) Total Protein 6.4 Normal 6.0-7.8 gm/dL LAB 83489817([facility] ) ALT 12 Normal 6-46 Int._Unit /L LAB 80165207([facility] ) AST 20 Normal 5-43 Int._Unit /L LAB 18418264([facility] ) BUN/Creat Ratio 10 Normal 10-20 No Units LAB 11391086([facility] ) AGAP 9 Normal 6-16 mEq/L LAB 37774302([facility] ) Globulin 2.5 Normal 1.4-4.0 gm/dL LAB 94407783([facility] ) A/G Ratio 1.6 Normal 1.1-2.2 Performed By: #### 6846760, 0320415, 40833494, 3895026, [id number] #### [facility] [address] [place] [address] LIPID PANEL Collected: 4 2:31 PM Status: F Source: [facility] REPOSITORY TYPE CODE TESTS RESULT OUT OF RANGE REFERENCE UNITS LAB 68410627(LOINC) Chol 156 Normal 120-200 mg/dL LAB 59816603(INC) HDL 51 Unknown mg/dL Result Comment: '>= 60 LOW R ISK' '<= 40 HIGH RISK' LAB 90514267(INC) LDL Direct 89 Normal <=129 mg/dL LAB 11534319(LOINC) Trig 92 Normal <=149 mg/dL LAB 04985018(INC) VLDL 18 Normal 7-40 mg/dL Performed By: #### 7390512, 6136112, 16299854, 7176628, [id number] #### [facility] [address] [place] [address] EGFR Collected: 4 2:31 PM Status: F Source: [facility] REPOSITORY Order Comment: Order added b y Discern Expert. TYPE CODE TESTS RESULT OUT OF RANGE REFERENCE UNITS LAB 51594900([facility]) eGFR 67 Normal >=59 mL/min/1 . 73 m2 Performed By: #### 9474115, 8454040, 63210830, 6895914, [id number] #### [facility] [address] [place] [address] CBC W/ AUTO DIFF Collected: 4 2:31 PM Status: F Source: [facility] REPOSITORY TYPE CODE TESTS RESULT OUT OF RANGE REFERENCE UNITS LAB 65270263(INC) WBC 6.0 Normal 4.0-11.0 E9/L LAB 51417800(INC) RBC 3.9 Low 4.3-5.9 E12/L LAB 27880596(INC) HGB 12.1 Low 13.5-17.5 gm/dL LAB 49552848(LOINC) Hct 37.0 Low 37.7-49.0 % LAB 05515715(LOINC) RDW 14.0 Normal 10.9-14.2 % LAB 29390524(LOINC) MCH 30.8 Normal 27.0-34.0 pg LAB 02356754(LOINC) MCHC 32.8 Normal 31.4-36.0 gm/dL LAB 65428754(LOINC) MCV 93.8 Normal 80.0-100.0 fL LAB 92654740(LOINC) MPV 9.5 Normal 6.4-10.8 fL LAB 70090881(LOINC) Platelet 198.0 Normal 150.0-500.0 E9/ L LAB 05458457(LOINC) Neutro Auto 59.5 Normal 36.0-75.0 % LAB 91224374(LOINC) Lymph Auto 29.3 Normal 14.0-50.0 % LAB 51806022(LOINC) Ross Auto 7.9 Normal 4.0-14.0 % LAB 27066312(LOINC) Eos Auto 2.9 Normal 0.0-8.0 % LAB 55537865(LOINC) Basophil Auto 0.4 Normal 0.0-2.0 % LAB 11431529(LOINC) Neutro Absolute 3.6 Normal 2.0-7.5 E9/L LAB 19577192(LOINC) Lymph Absolute 1.8 Normal 1.0-4.0 E9/L LAB 71856306(LOINC) Ross Absolute 0.5 Normal 0.2-1.0 E9 /L LAB 09236966(LOINC) Eos Absolute 0.2 Normal 0.0-0.5 E9/ L LAB 71717113(LOINC) Basophil Absolute 0.0 Normal 0.0-0.2 E9/L LAB 65007051(LOINC) NRBC Man 0 Normal 0-0 Performed By: #### 5306762, 0998441, 42957010, 6334012, 108920674 #### [facility] [address] [place] [address] HGBA1C Collected: 12/01/2023 2:31 PM Status: F Source: [facility] REPOSITORY TYPE CODE TESTS RESULT OUT OF RANGE REFERENCE UNITS LAB 4548-4([facility]) HEMOGLOBIN A1C/HEMOGLOBIN. TOTAL:MFR:PT:BL D:QN: 5.6 Normal <=5.9 % Performed By: #### 3753145, 0866248, 69457441, 3037740, [id number] #### [facility] [address] [place] [address] LAB REPORTS Observed: 12/01/2023 9:01 AM Status: F Source: [facility] REPOSITORY [id number]#1.00TIFF COMPLETE BLOOD COUNT AUTO DIFF Collected: 11/02/2023 1:40 PM Status: F Source: [facility] REPOSITORY Order Comment: Reason for Ex am Atrial fibrillation TYPE CODE TESTS RESULT OUT OF RANGE REFERENCE UNITS LAB WBC White Blood Count 6.1 Normal 4.1-10.5 10*3/uL LAB UNWBC Uncorrected WBC 6.1 Normal 4.1-10.5 10*3/uL LAB RBC Red Blood Count 4.19 Normal 3.90-5.60 LAB HGB Hemoglobin 13.2 Normal 13.0-17.0 g/dL LAB HCT Hematocrit 38.8 Normal 38.8-50.0 % LAB MCV Mean Corpuscular Volume 92.7 Normal 83.5-101 fL LAB MCH Mean Corpuscular Hemoglobin 31.5 Normal 27.5-35.2 pg LAB MCHC Mean Corpuscular HGB Conc 34.0 Normal 32.5-35.6 g/dL LAB RDW Red Cell Distribution Width 14.0 Normal 12.0-14.8 % LAB PLT Platelet Count 153 Normal 150-450 10*3/uL LAB MPV Mean Platelet Volume 9.4 Normal 6.6-10.1 fL LAB NE% Neutrophils % (Auto) 66.6 . % LAB LY% Lymphocytes % (Auto) 21.8 . % LAB MO% Monocytes % (Auto) 8.5 . % LAB EO% Eosinophils % (Auto) 2.1 . % LAB BA% Basophils % (Auto) 1.0 . % LAB NRBC% NRBC% 0.1 Normal 0-0.5 /100{WBC } LAB NE# Neutrophils # (Auto) 4.0 Normal 1.8-7.7 10*3/uL LAB LY# Lymphocytes # (Auto) 1.3 Normal 1.00-4.8 10*3/uL LAB MO# Monocytes # (Auto) 0.5 Normal 0.0-0.8 10*3/uL LAB EO# Eosinophils # (Auto) 0.1 Normal 0.0-0.45 10*3/uL LAB BA# Basophils # (Auto) 0.1 Normal 0.0-0.2 10*3/uL Result Comment: PERFORMED BY : [facility] [place] [address] PATHOLOGIST TRIMMING CASER DANNY NEAL M.D. Performed By: #### CBC, BMP #### [facility] [address] [id number] [facility] BASIC METABOLIC PANEL Collected: 2022 1:40 PM Status: F Source: [facility] REPOSITORY Order Comment: Reason for Ex am Hyponatremia TYPE CODE TESTS RESULT OUT OF RANGE REFERENCE UNITS LAB GLU Glucose 93 Normal 70-100 mg/dL Result Comment: Random Gluco se Reference Range is dependent on time and content of last meal. Glucose of more than 200 mg/dL in a nonstressed, ambulatory subject supports the diagnosis of Diabetes Mellitus. ADA recommended reference range LAB BUN Blood Urea Nitrogen 13 Normal 7-25 mg/dL LAB CREATT Creatinine 1.07 Normal 0.70-1.30 mg/dL LAB GFReNR Estimated GFR > 60.0 LAB NA Sodium 138 Normal 136-145 mmol/L LAB K Potassium 4.5 Normal 3.5-5.1 mmol/L LAB CL Chloride 102 Normal 98-107 mmol/L LAB CO2 Carbon Dioxide 32.4 High 21.0-31.0 mmol/L LAB GAP Anion Gap 8.1 Normal 6.0-15.0 LAB CA Calcium 9.3 Normal 8.6-10.3 mg/dL Result Comment: PERFORMED BY : [place] [id number] PATHOLOGIST TRIMMING CASER DANNY NEAL M.D. Performed By: #### CBC, BMP #### [place] [id number] [facility] COMPLETE BLOOD COUNT AUTO DIFF Collected: 11/02/2023 1:40 PM Status: F Source: [facility] REPOSITORY Order Comment: Reason for Ex am Atrial fibrillation TYPE CODE TESTS RESULT OUT OF RANGE REFERENCE UNITS LAB WBC White Blood Count 6.1 Normal 4.1-10.5 10*3/uL LAB UNWBC Uncorrected WBC 6.1 Normal 4.1-10.5 10*3/uL LAB RBC Red Blood Count 4.19 Normal 3.90-5.60 LAB HGB Hemoglobin 13.2 Normal 13.0-17.0 g/dL LAB HCT Hematocrit 38.8 Normal 38.8-50.0 % LAB MCV Mean Corpuscular Volume 92.7 Normal 83.5-101 fL LAB MCH Mean Corpuscular Hemoglobin 31.5 Normal 27.5-35.2 pg LAB MCHC Mean Corpuscular HGB Conc 34.0 Normal 32.5-35.6 g/dL LAB RDW Red Cell Distribution Width 14.0 Normal 12.0-14.8 % LAB PLT Platelet Count 153 Normal 150-450 10*3/uL LAB MPV Mean Platelet Volume 9.4 Normal 6.6-10.1 fL LAB NE% Neutrophils % (Auto) 66.6 . % LAB LY% Lymphocytes % (Auto) 21.8 . % LAB MO% Monocytes % (Auto) 8.5 . % LAB EO% Eosinophils % (Auto) 2.1 . % LAB BA% Basophils % (Auto) 1.0 . % LAB NRBC% NRBC% 0.1 Normal 0-0.5 /100{WBC } LAB NE# Neutrophils # (Auto) 4.0 Normal 1.8-7.7 10*3/uL LAB LY# Lymphocytes # (Auto) 1.3 Normal 1.00-4.8 10*3/uL LAB MO# Monocytes # (Auto) 0.5 Normal 0.0-0.8 10*3/uL LAB EO# Eosinophils # (Auto) 0.1 Normal 0.0-0.45 10*3/uL LAB BA# Basophils # (Auto) 0.1 Normal 0.0-0.2 10*3/uL Result Comment: PERFORMED BY : [place] [address] PATHOLOGIST TRIMMING CASER DANNY NEAL M.D. Performed By: #### CBC, BMP #### [address] BASIC METABOLIC PANEL Collected: 2022 1:40 PM Status: F Source: [facility] REPOSITORY Order Comment: Reason for Ex am Hyponatremia TYPE CODE TESTS RESULT OUT OF RANGE REFERENCE UNITS LAB GLU Glucose 93 Normal 70-100 mg/dL Result Comment: Random Gluco se Reference Range is dependent on time and content of last meal. Glucose of more than 200 mg/dL in a nonstressed, ambulatory subject supports the diagnosis of Diabetes Mellitus. ADA recommended reference range LAB BUN Blood Urea Nitrogen 13 Normal 7-25 mg/dL LAB CREATT Creatinine 1.07 Normal 0.70-1.30 mg/dL LAB GFReNR Estimated GFR > 60.0 LAB NA Sodium 138 Normal 136-145 mmol/L LAB K Potassium 4.5 Normal 3.5-5.1 mmol/L LAB CL Chloride 102 Normal 98-107 mmol/L LAB CO2 Carbon Dioxide 32.4 High 21.0-31.0 mmol/L LAB GAP Anion Gap 8.1 Normal 6.0-15.0 LAB CA Calcium 9.3 Normal 8.6-10.3 mg/dL Result Comment: PERFORMED BY : [place] [address] PATHOLOGIST TRIMMING CASER DANNY NEAL M.D. Performed By: #### CBC, BMP #### [facility] [address] [place], [place] [address] [facility] PSA SCREEN (YEARLY ONLY) Collected: 1:40 PM Status: F Source: [facility] REPOSITORY Order Comment: Reason for Ex am Prostate cancer screening TYPE CODE TESTS RESULT OUT OF RANGE REFERENCE UNITS LAB PSAS PSA Screen (Yearly Only) 1.940 Normal 0.000-4.000 ng/mL Result Comment: Serial tumor marker results determined by assays using different manufacturers or methods may not be comparable. [facility] gifted teacher and method: [employer] DXI, CHEMILUMINESCENT IMMUNOASSAY. PERFORMED BY: [place] [address] PATHOLOGIST TRIMMING CASER DANNY NEAL M.D. Performed By: #### PSAS #### [facility] [address] [place], [place] [address] [place] PSA SCREEN (YEARLY ONLY) Collected: 1:40 PM Status: F Source: [facility] REPOSITORY Order Comment: Reason for Ex am Prostate cancer screening TYPE CODE TESTS RESULT OUT OF RANGE REFERENCE UNITS LAB PSAS PSA Screen (Yearly Only) 1.940 Normal 0.000-4.000 ng/mL Result Comment: Serial tumor marker results determined by assays using different manufacturers or methods may not be comparable. [facility] gifted teacher and method: [employer] DXI, CHEMILUMINESCENT IMMUNOASSAY. PERFORMED BY: [place] [id number] PATHOLOGIST TRIMMING CASER DANNY NEAL M.D. Performed By: #### PSAS #### [facility] [address] [place], [place] [address] [facility] PROTHROMBIN TIME INR Collected: 06/16/2023 2:43 PM S tatus: F Source: [facility] REPOSITORY TYPE CODE TESTS RESULT OUT OF RANGE REFERENCE UNITS LAB R PT Prothrombin Time 27.8 High 9.0-12.9 s LAB INR INR 2.4 Result Comment: INR Therapeu tic Range A) Pre- and Peroperative OAT started [...] heart valves: 3 - 4.5 PERFORMED BY: [place] [address] PATHOLOGIST TRIMMING CASER DANNY NEAL M.D. Performed By: #### PT #### [address] [address] [facility] ALLERGIES DATE TYPE / CODE NAME / CODE REACTION SEVERITY SOURCE Miscellaneous Allergy/113226480(SNOMED CT) No Known Medication Allergies [facility] ENCOUNTERS ADMIT/DISCHARGE ACCOUNT NUMBER ADMITTING ENCOUNTER CLASS LOCATION SOURCE 07/05/2024 [id number] Ambulatory Norc[place]Build ing:GS Trena [facility] 07/03/2024/07/03/20 24 [id number] Ambulatory [facility] [facility] : CD:[id number] [facility] 06/20/2024/06/20/20 24 [id number] [facility] 06/11/2024/06/11/20 24 [id number] MD Kashif Barnett Ambulatory [facility]Building :FT.[facility]iol[facility] ClinicRoom: CD:[id number] 7 [facility] 05/30/2024/05/30/20 24 [id number] LALITHA Dubose Ambulatory [facility] :FT.Cardiolo [facility] ClinicRoom: CD:[id number] 3 [facility] 05/21/2024/05/21/20 24 [id number] MD Kashif Barnett Ambulatory [facility]Building :FT CAR [facility] 05/03/2024/05/03/20 24 [id number] Ambulatory [facility] [place]:[facility] : CD:[id number] 5 [facility] 05/03/2024/05/03/20 24 [id number] Ambulatory [facility] [facility]:FT FM Jackie [facility] 05/01/2024/05/01/20 24 [id number] MD Kashif Barnett Ambulatory [facility]Building :FT CAR [facility] 05/01/[id number] MD Kylah Garcia Ambulatory [facility]Building :FT LAB [facility] 05/01/2024/05/01/20 24 [id number] MD Kylah Garcia Ambulatory [facility]Building :FT LAB [facility] 05/01/2024/05/01/20 24 [id number] Ambulatory [facility] [place]:FT FM Jackie [facility] 04/20/2024/04/20/20 24 [id number] Ambulatory [facility]Building :FT.Cardiolo gy Clinic [facility] : CD:[id number] [facility] 04/04/2024/04/04/20 24 [id number] Ambulatory [facility] 03/26/2024/03/26/20 24 [id number] Axel Hernández Ambulatory FTMCBuilding :ASRoom: NX25Lab: 01 [facility] 03/20/2024/03/20/20 24 [id number] Ambulatory [facility] : CD:[id number] [address] [place] [address] 03/08/2024/03/08/20 24 [id number] Ambulatory [facility] [facility] : CD:[id number] [address] [place] [address] 03/06/2024/04/23/20 24 [id number] Axel Hernández Ambulatory [facility]Building :FT PST [facility] 02/15/2024/02/15/20 24 [id number] Ambulatory Building:[facility] 02/15/2024/02/15/20 24 [id number] Ambulatory Building:[facility] 02/15/2024/02/15/20 24 [id number] Ambulatory Building:[facility] 02/02/2024/02/02/20 24 [id number] Ambulatory [facility] [facility] : CD:[id number] [address] [place] [address] 12/01/2023/12/01/19 24 [id number] MD Kylah Garcia Ambulatory FT[facility]Building :FT LAB [facility] 12/01/2023/12/01/19 24 [id number] Ambulatory [facility] : CD:[id number] [address] [place] [address] 12/01/2023 [id number] Ambulatory [facility] [place]:[facility] [place] [facility] 11/02/2023/11/02/20 23 [id number] [facility] 06/16/2023/06/16/20 23 [id number] [facility]ada [facility]ene [facility] PAYERS ENCOUNTER GUARANTOR PAYER SUBSCRIBER SOURCE 07/03/2024 DARIEL HENAO: MCKAYLA Brownl: ~[phone] (HP) Primary Insurance:MEDICAREPo licy Number: [id number] Date:5761-01-41QY JORGE [address]S[place], [place] [address]BY: 6[facility] 06/20/2024 DARIEL HENAO: [place]CKAYLA [place], [place] [address]Bav: (HP) [facility]ALTH[facility] Number: [id number] Date:2023-11-14 DARIEL HENAO: [id number] [place] [address] [facility] 06/11/2024 DARIEL HENAO: MCKAYLA Richard: ~[phone] (HP) Primary Insurance:MEDICAREPo licy Number: [id number] Date:3532-46-52[address]AntqdNUR[address] [place] [address]ID: 651 [facility] 05/30/2024 DARIEL HENAO: MCKAYLA Richard: ~[phone] (HP) Primary Insurance:MEDICAREPo licy Number: [id number] Date:3479-73-76[address] [address]DF: 651 [facility] 05/21/2024 DARIEL HENAO: MCKAYLA Richard: ~[phone] (HP) Primary Insurance:MEDICAREPo licy Number: [id number] Date:8311-71-37[address]JmrfgNUR[address] [place] [address]CN: 651 [facility] 05/03/2024 DARIEL HENAO: MCKAYLA Richard: ~[phone] (HP) Primary Insurance:MEDICAREPo licy Number: [id number] Date:2023-11-14 [facility] 05/03/2024 DARIEL HENAO: MCKAYLA Richard: ~([phone] (HP) Primary Insurance:MEDICAREPo licy Number: [id number] Date:2023-11-14 [facility]/01/2024 DARIEL HENAO: MCKAYLA Richard: ~([phone] (HP) Primary Insurance:MEDICAREPo licy Number: [id number] Date:9102-92-22[address] [address]QF: 651 [facility] 05/01/2024 DARIEL HUDDLESTONB: MCKAYLA ORTIZTel: ~[phone] (HP) Primary Insurance:MEDICAREPo licy Number: [id number] Date:[id number] NURIS [id number]: [address] [facility] 05/01/2024 DARIEL HENAO: MCKAYLA Brownl: ~[phone]) Primary Insurance:MEDICAREPo licy Number: [id number] Date:2023-11-14 [facility] 04/20/2024 DARIEL HENAO: MCKAYLA Brownl: ~[phone]) Primary Insurance:MEDICAREPo licy Number: [id number] Date:2024-03-01 [facility] 04/04/2024 DARIEL HENAO: MCKAYLA [place] [address]Fzn: (HP) [facility] HEALTHPolicy Number: [id number] Date:2023-11-14 DARIEL HENAO: [id number] MCKAYLA [place] [address] [facility] 03/26/2024 DARIEL HENAO: MCKAYLA Brownl: ~[phone]) Primary Insurance:MEDICAREPo licy Number: [id number] Date:2024-03-01 [facility] 03/20/2024 DARIEL HENAO: MCKAYLA ANGELAbdiasl: ~[phone]) Primary Insurance:MEDICAREPo licy Number: [id number] Date:2024-03-01 [facility] 03/08/2024 DARIEL FLAQUITOB: MCKAYLA ORTIZTel: ~[phone]) Primary Insurance:MEDICAREPo licy Number: [id number] Date:2023-11-14 [facility] 03/06/2024 DARIEL FLAQUITOB: MCKAYLA ANGELTel: ~[phone]) Primary Insurance:MEDICAREPo licy Number: [id number] Date:2024-03-01 [facility] 02/15/2024 DARIEL HENAO: [place] [address]Gbf: (HP) Primary Insurance:DEVOTED HEALTHPolicy Number: [id number] Date:2023-11-14 DARIEL HENAO: [id number] [place] [address] [facility] 02/15/2024 DARIEL HENAO: [place], [place] [address]Tkz: (HP) Primary Insurance:DEVOTED HEALTHPolicy Number: [id number] Date:2023-11-14 DARIEL HENAO: [id number] [place] [address] [facility] 02/15/2024 DARIEL HENAO: [place], [place] [address]Rkj: (HP) Primary Insurance:DEVOTED HEALTHPolicy Number: [id number] Date:2023-11-14 DRAIEL HENAO: [id number] [place] [address] [facility] 02/02/2024 DARIEL HENAO: MCKAYLA Richard: ~[phone]) Primary Insurance:MEDICAREPo licy Number: [id number] Date:2023-11-14 DARIEL BRUNSWICKCARLEY [facility] 12/01/2023 DARIEL HENAO: MCKAYLA Richard: ~[phone]) Primary Insurance:MEDICAREPo licy Number: [id number] Date:2023-12-01 [facility] 12/01/2023 DARIEL HENAO: MCKAYLA Richard: ~[phone]) Primary Insurance:MEDICAREPo licy Number: [id number] Date:2023-11-14 [facility] 11/02/2023 [place], [place] [address]Wwb: (HP) Primary Insurance:[employer] Toanicy Number: [id number] Date:[id number] [id number]: Dariel Henao: [id number] [place]ck[place]la [place], [place] [address]Fmd: (HP) [facility] 11/02/2023 Secondary Insurance:Self PayPolicy Number: Effective Date:2023-11-02 NOT GIVENSCCI [facility] 06/16/2023 [place], [place] [address]Fyz: (HP) Primary Insurance:[employer] SEAMUSPolicy Number: [id number] Date:[id number] [place] [address] [address]SO: Dariel Henao: [id number] Mckayla Abdirashidzacarias[place], [place] [address]Zvm: () [facility] 06/16/2023 Secondary Insurance:Self PayPolicy Number: Effective Date:2023-06-16 NOT GIVENUNK [facility]
[2024-07-14 20:13] VITALS: BP 176/101; PULSE 81; O2SAT 100
[2024-07-14] MEDS: METHYLPREDNISOLONE SOD SUCC PF 125 MG/2 ML VIAL IVP (20:19)
[2024-07-14 20:31] LABS: Basophils Absolute Auto 0.1 10^3/uL (0.0-0.1); Eosinophils Absolute Auto 0.1 10^3/uL (0.0-0.7); Eosinophils Percent Auto 2.7 % (0.9-7.0); Hematocrit 40.3 % (42.0-54.0); Immature Granulocytes Abs Auto 0.01 10^3/uL (0.00-0.03); Immature Granulocytes Pct Auto 0.2 % (0.0-0.5); Lymphocytes Absolute Auto 2.4 10^3/uL (1.2-3.8); Lymphocytes Percent Auto 45.7 % (20.5-60.0); Mean Corpuscular HGB Conc 34.7 g/dL (29.9-35.2); Mean Corpuscular Hemoglobin 30.7 pg (25.9-34.0); Mean Corpuscular Volume 88.4 fL (80.0-94.0); Mean Platelet Volume 11.7 fL (9.5-13.5); Monocytes Absolute Auto 0.4 10^3/uL (0.3-0.8); Monocytes Percent Auto 7.7 % (1.7-12.0); Neutrophils Absolute Auto 2.2 10^3/uL (1.4-6.5); Neutrophils Percent Auto 42.7 % (43.0-75.0); Platelet Count 171 10^3/uL (150-450); Red Blood Count 4.56 10^6/uL (4.70-6.10); Red Cell Distribution Width 13.2 % (11.0-15.0); White Blood Count 5.2 10^3/uL (4.0-11.0)
[2024-07-14 20:31] LABS: Bilirubin Urine NEGATIVE (NEGATIVE); Blood Urine NEGATIVE (NEGATIVE); Clarity Urine CLEAR (CLEAR); Color Urine LT. YELLOW (YELLOW); Glucose Urine UA NEGATIVE (NEGATIVE); Ketones Urine NEGATIVE (NEGATIVE); Leukocyte Esterase Urine NEGATIVE (NEGATIVE); Nitrite Urine NEGATIVE (NEGATIVE); Protein Urine NEGATIVE (NEG/TRACE); Urobilinogen Urine 0.2 EU/dL (0.2-1.0)
[2024-07-14 20:32] LABS: Urine Microscopic Indicated NO
[2024-07-14 20:51] LABS: INR 2.78; Prothrombin Time 26.6 sec (9.0-11.6)
[2024-07-14 20:55] LABS: Alanine Aminotransferase 24 U/L (16-63); Albumin Globulin Ratio 1.2; Albumin Level 4.1 g/dL (3.4-5.0); Alkaline Phosphatase 90 U/L (46-116); Anion Gap 14.6; Aspartate Amino Transferase 28 U/L (15-37); BUN Creatinine Ratio 11.8; Bilirubin Total 0.7 mg/dL (0.2-1.0); Calcium 9.2 mg/dL (8.5-10.1); Carbon Dioxide 25.7 mmol/L (21.0-32.0); Chloride 100 mmol/L (98-107); Estimated GFR (African America >60 (>=60); Estimated GFR (Non-African Ame >60 (>=60); Globulin 3.4 g/dL; Glucose 93 mg/dL (74-106); Potassium 4.3 mmol/L (3.5-5.1); Sodium 136 mmol/L (136-145); Total Protein 7.5 g/dL (6.4-8.2)
[2024-07-14] MEDS: FENTANYL CITRATE/PF 100 MCG/2 ML VIAL 50 MCG IV (21:14)
[2024-07-14] MEDS: ONDANSETRON PF 4 MG/2 ML VIAL IV (21:14)
[2024-07-14] MEDS: METHOCARBAMOL 500 MG TABLET PO (21:14)
[2024-07-14] MEDS: HYDROMORPHONE HCL 0.5 MG/0.5 ML SYRINGE IV (22:01)
[2024-07-14 22:35] VITALS: BP 150/91; PULSE 96; O2SAT 96
== END 2024-07-14 22:35 | disposition home or self-care (01) ==
PROVIDERS: Physician Assistant; Emergency Provider Internal Medicine; PCP Family Medicine
DX: M54.50 Low back pain, unspecified (principal); Z79.01 Long term (current) use of anticoagulants
CPT/HCPCS: 36415; 74176; 80053; 81003; 83605; 85025; 85610; 96374; 96375; 99284; J1170; J2405; J2919; J3010

== ENCOUNTER 2024-07-16 00:49 | Outpatient (RCR) | payer OTHER, SELFPAY | END 2024-08-13 23:20 | disposition home or self-care (01) | LOC: MM 00:49 | PROVIDERS: PCP Family Medicine; Visit Provider Internal Medicine | DX: Z51.81 Encounter for therapeutic drug level monitoring (principal); Z79.01 Long term (current) use of anticoagulants; I48.20 Chronic atrial fibrillation, unspecified | CPT/HCPCS: 85610; G0463 ==

== ENCOUNTER 2024-08-13 12:20 | Outpatient (OUT) | payer OTHER, SELFPAY ==
--- OUTSIDE RECORDS SUMMARY | 2024-08-13 12:27 | XMS_ITS | CCD ---
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 Name Role Phone Jada Rene Unavailable Unavailable Primary Care Provider Unavailrogerio Rene Jada Endy Attending Unavailable Edgard Jada Endy Admitting Unavailable Edgard Jada Endy Primary Care Unavailable Edgard Jada Endy Attending Unavailable Edgard Jada A Admitting Unavailable Edgard Jada Endy Primary Care Unavailable Kylah Garcia Primary Care Physician [phone] AXEL HERNÁNDEZ Referring Unavailable AXEL HERNÁNDEZ Attending Unavailable KYLAH GARCIA Referring Unavailable AXEL HERNÁNDEZ Attending Unavailable AXEL HERNÁNDEZ Referring Unavailable AXEL HERNÁNDEZ Attending Unavailable AXEL HERNÁNDEZ Referring Unavailable MD Kylah Garcia Attending Unavailable MD Kylah Garcia Attending Unavailable MD Kylah Garcia Attending Unavailable MD Kylah Garcia Attending Unavailable Axel Hernández Admitting Unavailable Axel Hernández Attending Unavailable Axel Hernández Referring Unavailable MD Kashif Barnett Admitting Unavailable MD Kashif Barnett Attending Unavailable MD Kashif Barnett Referring Unavailable Jason Vaughn. Consulting UnavailJason Velasquez Consulting Unavaila Jason Chase Consulting Unavaila MD Kylah Choudhury Admitting MD Kylah Soler Attending Unavailable MD Kylah Garcia Admitting Unavailable MD Kylah Garcia Attending Unavailable Axel Hernández Admitting Unavailable Axel Hernández Attending Unavailable Axel Hernández Referring Unavailable MD Kashif Barnett Attending Unavailable MD Kylah Garcia Referring Unavailable Dixon Dubose Admitting Unavailable Dixon Dubose Attending Unavailable MD Kylah Garcia Referring Unavailable MD Kylah Garcia Attending Unavailable MD Kylah Garcia Attending Unavailable MD Kylah Garcia Attending Unavailable Kirnus, Kashif D Admitting Unavailable Kashif Barnett Attending Unavailable Kashif Barnett Referring Unavailable MD Kylah Garcia Admitting Unavailable MD Kylah Garcia Attending Unavailable MD Kylah Garcia Attending Unavailable MD Kylah Garcia Attending Unavailable MD Kylah Garcia Attending Unavailable MD Kylah Garcia Attending Unavailable MD Kylah Garcia Attending Unavailable MD Kylah Garcia Attending Unavailable MD Kylah Garcia Referring Unavailable Davie Vargas Attending Unavailable Davie Vargas Attending Unavailable NONE, XXXX Referring Unavailable Kashif Barnett Admitting Unavailable Kashif Barnett Attending Unavailable Allergies Allergy Classification Reported Allergen(s) Allergy Type Date of Onset Reaction(s) Facility (2 sources) No Known Medication Allergies; Translations: [No Known Medication Allergies] Propensity to adverse reactions (disorder) [facility] Repository Medications Current Medications Medication Drug Class(es) Dates Sig (Normalized) Sig (Original) acetaminophen 325 mg / HYDROcodone bitartrate 5 mg oral tablet (1 source) Opioid Agonist Start: 03-20-2024 take 1 tablet by mouth every four hours as needed for pain [place] 325 mg-5 mg oral tablet See Instructions, for pain, 10 tab(s), Refill(s) 0, 1 tab(s) Oral q4hr PRN Pain. Duration 7 days., [facility]/pharmacy #[id number], 180.5, cm, 03/20/24 15:05:00 EDT, Height/Length Dosing, 82.5, kg, 03/20/24 15:05:00 EDT, Weight Dosing Start Date: 03/20/24 Status: Ordered atenolol 25 mg oral tablet (20 sources) beta-Adrenergic Dimitris Start: 04-20-2024 atenolol 25 mg Tab See Instructions, take 1/2 tab daily, # 30 tab(s), Refills(s) 5, Pharmacy: [facility]/pharmacy #[id number], 180, cm, 04/20/24 13:27:00 EDT, Height/Length Dosing, 82.2, kg, 04/20/24 13:27:00 EDT, Weight Dosing Start Date: 04/20/24 Status: Ordered Start: 02-22-2024 take 1 tablet by alyssa once daily atenolol 25 mg Tab 25 mg = 1 tab(s), Oral, Daily, # 90 tab(s), Refills(s) 0, Pharmacy: [facility], 178.2, cm, 02/02/24 10:29:00 EDT, Height/Length [...] capsule by mouth every twenty-four hours CoQ10 (8 sources) Start: 4 CoQ10 Refills(s) 0 Start Date: 03/06/24 Status: Ordered D3 (3 sources) Start: 4 D3 See Instructions, Oral Daily- patient states he takes 500 once a day, Refills(s) 0 Start Date: 05/03/24 Status: Ordered finasteride 5 mg oral tablet (20 sources) 5-alpha Reductase Inhibitor Start: 4 take 1 tablet by mouth once daily finasteride 5 mg Tab 5 mg = 1 tab(s), Oral, Daily, # 90 tab(s), Refills(s) 1, Pharmacy: [facility], 180, cm, 04/20/24 13:27:00 EDT, Height/Length Dosing, 82.2, kg, 04/20/24 13:27:00 EDT, Weight Dosing Start Date: 04/30/24 Status: Ordered Start: 01-18-2024 take 1 tablet by alyssa th once daily finasteride 5 mg Tab 5 mg = 1 tab(s), Oral, Daily, # 90 tab(s), Refills(s) 0, Pharmacy: [facility], 178.2, cm, 12/01/23 13:40:00 EST, Height/Length Dosing, 85.5, kg, 12/01/23 13:40:00 EST, Weight Dosing Start Date: 01/18/24 Status: Ordered Start: 10-09-2014 take 1 tablet by alyssa th once daily finasteride 5 mg Tab 5 mg = 1 tab(s), Oral, Daily, Refills(s) 0 Start Date: 12/01/23 Status: Ordered Comment on above: Take 1 tablet by alyssa th once daily. gabapentin 300 mg oral capsule (20 sources) Anti-epileptic Agent Start: 02-22-2024 take 1 capsule by mouth once daily gabapentin 300 mg Cap 300 mg = 1 cap(s), Oral, Daily, # 90 cap(s), Refills(s) 0, Pharmacy: [facility], 178.2, cm, 02/02/24 10:29:00 EDT, Height/Length Dosing, 84.1, kg, 02/02/24 10:29:00 EDT, Weight Dosing Start Date: 02/22/24 Status: Ordered Start: 12-01-2023 take 1 capsule by mo ut once daily gabapentin 300 mg Cap 300 mg = 1 cap(s), Oral, Daily, Refills(s) 0 Start Date: 12/01/23 Status: Ordered glimepiride 2 mg oral tablet (20 sources) Sulfonylurea Start: 02-13-2024 take 1 tablet by mouth once daily glimepiride 2 mg Tab 2 mg = 1 tab(s), Oral, Daily, # 90 tab(s), Refills(s) 1, Pharmacy: [facility], 178.2, cm, 02/02/24 10:29:00 EDT, Height/Length Dosing, 84.1, kg, 02/02/24 10:29:00 EDT, Weight Dosing Start Date: 02/13/24 Status: Ordered Start: 10-14-2014 take 1 tablet by alyssa th once daily glimepiride 2 mg Tab 2 mg = 1 tab(s), Oral, Daily, Refills(s) 0 Start Date: 12/01/23 Status: Ordered Comment on above: Take 1 tablet by alyssa once daily. levothyroxine sodium 0.025 mg oral tablet (20 sources) l-Thyroxine Start: take 1 tablet by mouth once daily levothyroxine 25 mcg (0.025 mg) Tab 25 mcg = 1 tab(s), Oral, Daily, on an empty stomach, # 90 tab(s), Refills(s) 1, Pharmacy: [facility], 178.2, cm, 02/02/24 10:29:00 EDT, Height/Length [...] day Active take 1 tablet by alyssa once daily [...] take 1 tablet by alyssa once daily as needed Meloxicam 15 MG 1 tablet PRN Orally Once a day for 90 days Active omeprazole 40 mg delayed release oral capsule (20 sources) Proton Pump Inhibitor Start: 03-05-2024 take 1 capsule by mouth once daily omeprazole 40 mg Cap-DR 40 mg = 1 cap(s), Oral, Daily, # 90 cap(s), Refills(s) 0, Pharmacy: [facility], 178.2, cm, 02/02/24 10:29:00 EDT, Height/Length Dosing, 84.1, kg, 02/02/24 10:29:00 EDT, Weight Dosing Start Date: 03/05/24 Status: Ordered Start: 12-01-2023 omeprazole 40 mg Cap-DR 40 mg = 1 cap(s), Oral, Daily, 30 minutes before morning meal, Refills(s) 0 Start Date: 12/01/23 Status: Ordered pravastatin sodium 40 mg oral tablet (20 sources) HMG-CoA Reductase Inhibitor Start: 06-05-2024 pravastatin 40 mg Ta b See Instructions, TAKE 1 TABLET DAILY, # 90 tab(s), Refills(s) 0, Pharmacy: [facility], 178, cm, 05/30/24 13:34:00 EDT, Height/Length Dosing, 80.2, kg, 05/30/24 13:34:00 EDT, Weight Dosing Start Date: 06/05/24 Status: Ordered Start: 02-22-2024 take 1 tablet by alyssa th once daily pravastatin 40 mg Tab 40 mg = 1 tab(s), Oral, Daily, # 90 tab(s), Refills(s) 0, Pharmacy: [facility], 178.2, cm, 02/02/24 10:29:00 EDT, Height/Length [...] at bedtime. sildenafil 100 mg oral tablet (11 sources) Phosphodiesterase 5 Inhibitor Start: 02-02-20 take 1 tablet by mouth once daily as needed sildenafil 100 mg Tab 100 mg = 1 tab(s), Oral, Daily, PRN for erectile dysfunction, 1 hour before sexual activity, # 5 tab(s), Refills(s) 0, Pharmacy: [facility], 178.2, cm, 02/02/24 10:29:00 EDT, Height/Length Dosing, 84.1, kg, 02/02/24 10:29:00 EDT, Weight Dosing Start Date: 02/02/24 Status: Ordered take 1 tablet by [facility] every twenty-four hours Sildenafil Citrate 100 MG 1 tablet as needed Orally Once a day Active Sodium Chloride (11 sources) Start: 05-03-2024 take 1 tablet by mouth once daily Sodium Chloride 1 g oral tablet See Instructions, patient states Dr. Najera took this down to one tab once daily, Refills(s) 0 Start Date: 05/03/24 Status: Ordered Start: 04-05-2024 take 1 tablet by alyssa twice daily Sodium Chloride 1 g oral tablet See Instructions, TAKE 1 TABLET BY MOUTH TWICE DAY, # 90 tab(s), Refills(s) 2, Pharmacy: [facility]/pharmacy #[id number], 180.5, cm, 03/20/24 15:05:00 EDT, Height/Length Dosing, 82.5, kg, 03/20/24 15:05:00 EDT, Weight Dosing Start Date: 04/05/24 Status: Ordered Start: 12-23-2023 take 1 tablet by [facility] twice daily Sodium Chloride 1 g oral tablet See Instructions, TAKE 1 TABLET BY MOUTH TWICE DAY, # 90 tab(s), Refills(s) 2, Pharmacy: [facility], 178.2, cm, 12/01/23 13:40:00 EST, Height/Length Dosing, 85.5, kg, 12/01/23 13:40:00 EST, Weight Dosing Start Date: 12/23/23 Status: Ordered take 1 tablet by [facility] three times daily Sodium Chloride 1000 MG 1 tablet Orally Three times a day Active tamsulosin hydrochloride 0.4 mg oral capsule (20 sources) alpha-Adrenergic Dimitris Start: 02-22-2024 take 1 capsule by mouth once daily tamsulosin 0.4 mg Cap 0.4 mg = 1 cap(s), Oral, Daily, # 90 cap(s), Refills(s) 0, Pharmacy: [facility], 178.2, cm, 02/02/24 10:29:00 EDT, Height/Length Dosing, 84.1, kg, 02/02/24 10:29:00 EDT, Weight Dosing Start Date: 02/22/24 Status: Ordered Start: 10-14-2014 take 1 capsule by [facility] once daily tamsulosin 0.4 mg Cap 0.4 mg = 1 cap(s), Oral, Daily, Refills(s) 0 Start Date: 12/01/23 Status: Ordered Comment on above: Take 1 capsule by [facility] daily at bedtime. triamcinolone acetonide 1 mg /ml topical cream (14 sources) Corticosteroid Start: 06-16-2023 Start: 06-16-2023 Triamcinolone Acetonide 0.1 % 1 application Externally BID for 14 days Jun, Active Turmeric Curcumin 500 MG (14 sources) Turmeric Curcumi n 500 MG as directed Orally Active turmeric extract 500 mg oral capsule (8 sources) Start: 03-06-2024 Turmeric 500 m g oral capsule Refills(s) 0 Start Date: 03/06/24 Status: Ordered ubidecarenone 200 mg oral capsule (14 sources) vitamin B12 (9 sources) Vitamin B12 Start: 03-06-2024 Vitamin B12 Re fills(s) 0 Start Date: 03/06/24 Status: Ordered Start: 07-28-2011 take 1 tablet by alyssa th once daily cyanocobalamin 1,000 mcg ORAL Tab Take 1 tablet by mouth once daily. 0 07/28/2011 Active Comment on above: Take 1 tablet by alyssa once daily. Vitamin D3 5000 intl units (125 mcg) oral tab (9 sources) Start: 12-01-2023 take 1 tablet by mouth once daily Vitamin D3 5000 intl units (125 mcg) oral tab 125 mcg = 1 tab(s), Oral, Daily, Refills(s) 0 Start Date: 12/01/23 Status: Ordered warfarin sodium 5 mg oral tablet (20 sources) Vitamin K Antagonist Start: 03-06-2024 take [...] without complications] Chronic Disorders of lipid metabolism (9 sources) Hyperlipidemia; Translations: [Hyperlipidemia, unspecified] 03-02-2006 Chronic E Codes: Fall (7 sources) Fall in home 03-20-2024 Fluid and electrolyte disorders (10 sources) Hypo-osmolality and hyponatremia; Translations: [Hyponatremia] Episodic Hyperplasia of prostate (16 sources) Benign prostatic hyperplasia; Translations: [Benign prostatic hyperplasia without lower urinary tract symptoms] Onset: 01-11-2013 Chronic Immunizations and screening for infectious disease (1 source) Encounter for immunization Episodic Influenza (1 source) Influenza due to other identified influenza virus with other respiratory manifestations Episodic Open wounds of head; neck; and trunk (4 sources) Laceration of head 03-20-2024 Episodic Osteoarthritis (10 sources) Degenerative joint disease involving multiple joints; Translations: [Polyosteoarthritis, unspecified] Onset: 09-12-2012 09-12-2012 Chronic Other aftercare (14 sources) Long-term current use of anticoagulant; Translations: [shelter (current) use of anticoagulants] Episodic Other aftercare (3 sources) 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 Episodic Other and unspecified benign neoplasm (7 sources) Melanocytic nevus of skin 03-08-2024 Episodic Other connective tissue disease (8 sources) Triggering of digit 02-02-2024 Episodic Other connective tissue disease (1 source) Acquired trigger finger of right little finger; Translations: [Trigger finger, right little finger] Onset: 03-20-2024 Episodic Other ear and sense organ disorders (17 sources) Hearing loss; Translations: [Unspecified hearing loss, unspecified ear] 05-03-2024 Chronic Other ear and sense organ disorders (1 source) Unspecified hearing loss, unspecified ear Chronic Other male genital disorders (5 sources) Impotence 02-02-2024 Chronic Other male genital disorders (3 sources) Erectile dysfunction co-occurrent and due to arterial insufficiency 05-03-2024 Chronic Other nervous system disorders (9 sources) Carpal tunnel syndrome; Translations: [Carpal tunnel syndrome, unspecified upper limb] Onset: 08-23-2007 03-06-2008 Chronic Other nervous system disorders (1 source) Neuropathy; Translations: [Polyneuropathy, unspecified] Onset: 03-25-2010 03-25-2010 Chronic Other nutritional; endocrine; and metabolic disorders (7 sources) Overweight in adulthood with body mass index of 25 or more but less than 30 03-08-2024 Episodic Other screening for suspected conditions (not mental disorders or infectious disease) (1 source) Encounter for screening for malignant neoplasm of prostate Episodic Peripheral and visceral atherosclerosis (9 sources) Arteriosclerotic vascular disease 12-01-2023 Chronic Spondylosis; intervertebral disc disorders; other back problems (1 source) Intervertebral disc disorder of cervical region with myelopathy; Translations: [Cervical disc disorder with myelopathy, unspecified cervical region] Onset: 2011 11-09-2021 Chronic Syncope (11 sources) Syncope and collapse; Translations: [Syncope] Onset: 04-20-2024 Episodic Thyroid disorders (16 sources) Hypothyroidism; Translations: [Hypothyroidism, unspecified] Chronic Unclassified (1 source) Encounter for screening for malignant neoplasm of prostate; Translations: [Encounter for screening for malignant neoplasm of prostate] Onset: 11-02-2023 Unclassified (1 source) 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; Translations: [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] Onset: 06-16-2023 Results Test Name Value Interpretation Reference Range Facil ity Ambulatory Visit Summaryon 0 08-07-2024 Ambulatory Visit Summary Ambulatory Visit Summary DARIEL ZABALA :1940 Visit Date:08/07/2024 Ambulatory Visit Instructions Your Care Team Attending Physician - Kylah Garcia MD Primary Care Physician - Kylah Garcia MD This Is Your Medications List Turmeric (Turmeric 500 mg oral capsule) atenolol (atenolol 25 mg Tab) cholecalciferol (D3) cholecalciferol (Vitamin D3 5000 intl units (125 mcg) oral tab) cyanocobalamin (Vitamin B12) finasteride (finasteride 5 mg Tab) fluticasone nasal (Flonase 0.05 mg/inh [place]) gabapentin (gabapentin 300 mg Cap) glimepiride (glimepiride 2 mg Tab) levothyroxine (levothyroxine 25 mcg (0.025 mg) Tab) omeprazole (omeprazole 40 mg Cap-DR) pravastatin (pravastatin 40 mg Tab) sildenafil (sildenafil 100 mg Tab) sodium chloride (Sodium Chloride 1 g oral tablet) tamsulosin (tamsulosin 0.4 mg Cap) tizanidine (tiZANidine 4 mg Tab) tramadol (traMADOL 50 mg Tab) ubiquinone (CoQ10) warfarin (Jantoven 5 mg oral tablet) Procedures Performed Carpal tunnel release (03/26/2024), Carpal tunnel release, Surgery. Discharge Vitals Temperature (Temporal Artery) 36.2 ?C Heart Rate (Peripheral) 76 Respiratory Rate 18 Blood Pressure 118/76 Height 178 cm Height 70 in Weight 78.2 kg Weight 172.04 lb BMI 24.68 What to do next Scheduled Follow-Up Appointments 2023 9:15 AM EST With: Adam COHN, Kylah Cole Where: [address] [address]- Tuesday 1:00 PM EST With: Dixon Dubose PA-C Where: [facility] 2024 8:00 AM EDT With: Where: [address] [id number]- Medications What How Much When Why Instructions Unchanged atenolol (atenolol 25 mg Tab) See instructions take 1/ 2 tab daily Unchanged cholecalciferol (D3) See instructions Oral Daily- patient states he takes 500 once a day Unchanged cholecalciferol (Vitamin D3 5000 intl units (125 mcg) oral tab) 1 Tablets By Mouth Every day Unchanged cyanocobalamin (Vitamin B12) Unchanged finasteride (finasteride 5 mg Tab) 1 Tablets By Mouth Every day Unchanged fluticasone nasal (Flonase 0.05 mg/ inh [place]) 1 Sprays Nasal Inhalation 2 times a day each nostril Unchanged gabapentin (gabapentin 300 mg Cap) 1 Capsules By Mouth Every day Unchanged glimepiride (glimepiride 2 mg Tab) 1 Tablets By Mouth Every day Unchanged levothyroxine (levothyroxine 25 mcg (0.025 mg) Tab) 1 Tablets By Mouth Every day on an empty stomach Unchanged omeprazole (omeprazole 40 mg Cap-DR) 1 Capsules By Mouth Every day Unchanged pravastatin (pravastatin 40 mg Tab) See instructions TAKE 1 TABLET DAILY Unchanged sildenafil (sildenafil 100 mg Tab) 1 Tablets By Mouth Every day as needed for for erectile dysfunction 1 hour before sexual activity Unchanged sodium chloride (Sodium Chloride 1 g oral tablet) See instructions 1 gram orally daily Unchanged tamsulosin (tamsulosin 0.4 mg Cap) 1 Capsules By Mouth Every day Unchanged tizanidine (tiZANidine 4 mg Tab) 1 Tablets By Mouth Every 8 hours Unchanged tramadol (traMADOL 50 mg Tab) 1 Tablets By Mouth Every 4 hours as needed for for pain Back spasm Duration: 7 Days Unchanged Turmeric (Turmeric 500 mg oral capsule) Unchanged ubiquinone (CoQ10) Unchanged warfarin (Jantoven 5 mg oral tablet) 1 Tablets By Mouth Every day Allergies No Known Medication Allergies Problems Ongoing - Any problem that you are currently receiving treatment for. ASCVD (arteriosclerotic cardiovascular disease) Back spasm Carpal tunnel syndrome, left DM type 2 [...] you for choosing us for your care. [facility] Family Medicine Office/Clini c Noteon 08-07-2024 Family Medicine Office/Clinic Note Family Medicine Office/Clinic Note HPI Staff Dariel is an 84 year old male presenting for one week follow up back pain IAM medrol dosepak and tramadol Steroids are done Pain characteristics: Pain location: low back Intensity:8/10 Onset: ongoing Medication used: steroids and tramadol, tizanidine questions/concerns: needs his glimeperide refilled and levothyroxine to [facility] Out of steroids, can he do more? tramadol is almost out can he get more they seem to help. if you renew these use local pharamcy C/O about the groin area ? hernia still has that lump area Called [facility] and advised him his appt is 08/13/24 with Jackie pain management at 12:30pm History of Present Illness - Here for follow up on his back. He states the pain has not improved. - He states he is not taking the meds like a sent in. He was only taking the steroid or the pain meds. - I am concerned that he is not taking this serious because he is so worried about his . -Explained again to him what needs to be done. Patient is so scared of being admitted. Explained that none of these issues would cause admission unless he was trying to get the hernia repair. Physical Exam Vitals & Measurements T: 36.2 ?C(Temporal Artery) HR: 76(Peripheral) RR: 18 BP: 118/76 SpO2: 99% HT: 70 in HT: 178 cm WT: 78.2 kg WT: 172.04 lb BMI: 24.68 General: alert, no acute distress ENMT: oral mucosa moist, Cardiovascular: regular rate and rhythm, normal peripheral perfusion Respiratory: Lungs CTA, respirations non labored Extremities: no deformity, no trauma, TTP of the lumbar region. Pt has pain with twisting of the lumbar back. Neurological: oriented x 4, LOC appropriate for age, CN II-XII intact, motor strength equal & normal bilaterally, speech normal Abdomen: Soft, Nontender, Non-distended, + BS Assessment/Plan 1. Back spasm (M62.830: Muscle spasm of back) - NO improvement. Pt looks comfortable sitting in the waiting room. Pt is struggling at this time still. Pt was suppose to see pain. Cancelled the visit. Called pain he has an initial visit next week. Gave the patient the apt time. - Will do PT as well. Ordered: methylPREDNISolone, = 1 packet(s), Oral, As Directed, as directed on package labeling, X 6 day(s), # 21 tab(s), Refills(s) 0, Pharmacy: [facility]/pharmacy #[id number], 178, cm, 07/31/24 14:02:00 EDT, Height/Length Dosing, 78.5, kg, 07/31/24 14:02:00 EDT, Weight Dosing 2. Nonsmoker (Z78.9: Other specified health status) - Please continue to not smoke. Ordered: Body Mass Index (BMI) documented 3008F Current tobacco non-user 1036F Most recent diastolic blood pressure <80 mm Hg 3078F Patient screen for fall risk: no falls in last year or 1 fall with no injury in last year 1101F Systolic BP <130 mm Hg (Most Recent) 3074F 3. 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 Hypothyroid (E03.9: Hypothyroidism, unspecified) - Will refill and check labs soon. 5. Inguinal hernia of left side without obstruction or gangrene (K40.90: Unilateral inguinal hernia, without obstruction or gangrene, not specified as recurrent) Again patient canceled the appointment. Encouraged the patient to call general surgery for his appointment. Total time spent preparing for the encounter, evaluating and assessing the patient, documenting the visit, and ordering appropriate follow-up work was 40 minutes. Follow-up No qualifying data available Problem List/Past Medical History Ongoing ASCVD (arteriosclerotic cardiovascular disease) Back spasm Carpal tunnel syndrome, left DM type 2 causing vascular disease Encounter for surveillance of abnormal nevi Erectile dysfunction due to arterial insufficiency Fall at home Hard of hearing Hyperlipidemia Hypothyroid Inguinal hernia of left side without obstruction [...] Oral, Daily, 1 refills Flonase 0.05 mg/inh [place], 1 spray(s), Nasal, BID gabapentin 300 mg [...] Cap, 0.4 mg= 1 cap(s), Oral, Daily tiZANidine 4 mg Tab, 4 mg= 1 tab(s), Oral, q8hr, 1 r (more content not included)... Normal [facility] Comment on above: Result Comment: Elec tronically Signed By: Adam COHN, Kylah Cole\.br\Date and Time Signed: 08/07/24 11:41 EDT Family Medicine Office/Clini c Noteon 07-31-2024 Family Medicine Office/Clinic Note Family Medicine Office/Clinic Note HPI Staff Dariel is an 84 year old male presenting for one week follow up back pain IAM tizanidine and norco for pain, refer pain management Pain characteristics: Pain location: 9-10 Intensity:low back Onset: ongoing Medication used: norco all gone and he said they really didn't help, has alot of the tizanidine left Opioids prescribed: Medication agreement UTD: _ Urine drug screen performed:_ History of Present Illness 9 out of 10 back pain. Does not radiate. Comes and goes. No bowel or bladder incontinence. Patient is numbness in both feet are his normal. Physical Exam Vitals & Measurements T: 36.5 ?C(Temporal Artery) HR: 66(Peripheral) RR: 18 BP: 112/60 SpO2: 99% HT: 70 in HT: 178 cm WT: 78.5 kg WT: 172.7 lb BMI: 24.78 Palpation of the back does not show any pain on palpation. Assessment/Plan 1. Back spasm (M62.830: Muscle spasm of back) Will give a Medrol Dosepak and tramadol. Follow-up in a week. Pain management call the patient and he declined the appointment because he thought it was somewhere else. I am concerned that he is trying to take care of his and he is having a hard time taking care of himself. Ordered: methylPREDNISolone, = 1 packet(s), Oral, As Directed, as directed on package labeling, X 6 day(s), # 21 tab(s), Refills(s) 0, Pharmacy: [facility]/pharmacy #[id number], 178, cm, 07/31/24 14:02:00 EDT, Height/Length Dosing, 78.5, kg, 07/31/24 14:02:00 EDT, Weight Dosing tramadol, 50 mg = 1 tab(s), Oral, q4hr, PRN for pain, X 7 day(s), # 21 tab(s), Refills(s) 0, Pharmacy: [facility]/pharmacy #[id number], 178, cm, 07/31/24 14:02:00 EDT, Height/Length Dosing, 78.5, kg, 07/31/24 14:02:00 EDT, Weight Dosing Follow-up No qualifying data available Problem List/Past Medical History Ongoing ASCVD (arteriosclerotic cardiovascular disease) Back spasm Carpal tunnel syndrome, left DM type 2 [...] Oral, Daily, 1 refills Flonase 0.05 mg/inh [place], 1 spray(s), Nasal, BID gabapentin 300 mg Cap, 300 mg= 1 cap(s), Oral, Daily, 1 refills glimepiride 2 mg Tab, 2 mg= 1 tab(s), Oral, Daily, 1 refills levothyroxine 25 mcg (0.025 mg) Tab, 25 mcg= 1 tab(s), Oral, Daily, 1 refills Medrol Dosepack 4 mg Tab, 1 packet(s), Oral, As Directed pravastatin 40 mg Tab, See Instructions sildenafil 100 mg Tab, 100 mg= 1 tab(s), Oral, Daily, PRN Sodium Chloride 1 g oral tablet, See Instructions tamsulosin 0.4 mg Cap, 0.4 mg= 1 cap(s), Oral, Daily tiZANidine 4 mg Tab, 4 mg= 1 tab(s), Oral, q8hr, 1 refills traMADOL 50 mg Tab, 50 mg= 1 tab(s), Oral, q4hr, PRN Turmeric 500 mg oral capsule Vitamin B12 [...] lifetime) Tobacco Use:. Never Smokeless Tobacco Use:., 07/31/2024 Family History Diabetes mellitus type 2: Mother. Immunizations Vaccine Date Status pneumococcal 20-valent conjugate vaccine 09/21/2023 Recorded influenza virus vaccine, inactivated 08/19/2023 Recorded pneumococcal 13-valent vaccine 03/31/2015 Recorded influenza virus vaccine, inactivated 08/02/2014 Recorded Normal [facility] Comment on above: Result Comment: Elec tronically Signed By: Kylah Garcia MD\.br\Date and Time Signed: 07/31/24 14:23 EDT Ambulatory Visit Summaryon 0 07-24-2024 Ambulatory Visit Summary Ambulatory Visit Summary DARIEL ZABALA :1940 Visit Date:07/24/2024 Ambulatory Visit Instructions Your Diagnosis BMI 24.0-24.9, adult Nonsmoker Your Care Team Attending Physician - Kylah Garcia MD Primary Care Physician - Kylah Garcia MD This Is Your Medications List Turmeric (Turmeric 500 mg oral capsule) atenolol (atenolol 25 mg Tab) cholecalciferol (D3) cholecalciferol (Vitamin D3 5000 intl units (125 mcg) oral tab) cyanocobalamin (Vitamin B12) finasteride (finasteride 5 mg Tab) fluticasone nasal (Flonase 0.05 mg/inh [place]) gabapentin (gabapentin 300 mg Cap) glimepiride (glimepiride [...] (Temporal Artery) 36.4 ?C Heart Rate (Peripheral) 70 Respiratory Rate 16 Blood Pressure 120/74 Height 178 cm Height 70 in Weight 78.7 kg Weight 173.14 lb BMI 24.84 What to do next Scheduled Follow-Up Appointments Tuesday 2:00 PM EDT With: Kylah Garcia MD Where: [address] [id number] 2023 9:15 AM EST With: Kylah Garcia MD Where: [address] [address]- Tuesday 1:00 PM EST With: Dixon Dubose PA-C Where: [facility] 2024 8:00 AM EDT With: Where: [address] [address]- Medications What How Much When Instructions Unchanged [...] 1 Tablets By Mouth Every day Unchanged fluticasone nasal (Flonase 0.05 mg/ inh [place]) 1 Sprays Nasal Inhalation 2 times a day each nostril Unchanged gabapentin (gabapentin 300 mg Cap) 1 [...] tablet) 1 Tablets By Mouth Every day Duration: 7 Days Allergies No Known Medication Allergies Problems Ongoing [...] you for choosing us for your care. [facility] Family Medicine Office/Clini c Noteon 07-24-2024 Family Medicine Office/Clinic Note Family Medicine Office/Clinic Note HPI Staff Dariel is an 84 year old male presenting for ER follow up ER followup: Hospital: [place] Visit date: 07/14/24 Symptoms the patient presented with: low back pain, ED report and CT abd/pelvis in documents Current concerns: still having a lot of pain, worse he's ever had Brought empty bottle of hydrocodone-acet 5-[address] Hernández and methocarbamol 750mg tid prn pain rxed by ER. He says neither of these work History of Present Illness Patient presents for over a month history of back pain. Patient states he was getting so bad he went to the ER. In the ER he was given muscle relaxers. Patient states the muscle laxer's did not really help. But patient was under the dosed. Patient stated Mulberry was helping him more. Patient denies any new neurological symptoms. Patient woke up this morning without any pain and then within 10 minutes of movement he became under pain again. Patient has canceled all of his surgeries because of concerns that his will get home before he is stable from surgeries. Review of Systems PHQ Score Initial Depression Screen Score: 1 SCORE Physical Exam Vitals & Measurements T: 36.4 ?C(Temporal Artery) HR: 70(Peripheral) RR: 16 BP: 120/74 HT: 70 in HT: 178 cm WT: 78.7 kg WT: 173.14 lb BMI: 24.84 General: alert, no acute distress ENMT: oral mucosa moist, Cardiovascular: normal peripheral perfusion Respiratory:, respirations non labored Extremities: no deformity, no trauma, TTP of the paraspinal muscles. Neurological: oriented x 4, LOC appropriate for age, CN II-XII intact, motor strength equal & normal bilaterally, speech normal Assessment/Plan 1. Back spasm (M62.830: Muscle spasm of back) - Will do Tizanadine - Will do Mulberry for pain - Follow up in 1 week. - Will send to pain Ordered: [facility] External Ambulatory Referral 2. Inguinal hernia of left side without obstruction or gangrene (K40.90: Unilateral inguinal hernia, without obstruction or gangrene, not specified as recurrent) - Pt cancelled his surgery. - NO pain at this time. - Encouraged follow up Ordered: [facility] External Ambulatory Referral 3. Nonsmoker (Z78.9: Other specified health status) - Please continue to not smoke Ordered: Body Mass Index (BMI) documented 3008F Current tobacco non-user 1036F Depression Screening Negative 3352F [facility] External Ambulatory Referral Most recent diastolic blood pressure <80 mm Hg 3078F Patient screen for fall risk: no falls in last year or 1 fall with no injury in last year 1101F Systolic BP <130 mm Hg (Most Recent) 3074F Orders: acetaminophen-hydro codone, 1 tab(s), Oral, q4hr for pain for 3 day(s), 12 tab(s), Refill(s) 0, [id number], 178, cm, 07/24/24 14:57:00 EDT, Height/Length Dosing, 78.7, kg, 07/24/24 14:57:00 EDT, Weight Dosing tizanidine, 4 mg = 1 tab(s), Oral, q8hr, # 90 tab(s), Refills(s) 1, Pharmacy: [facility]/pharmacy #[id number], 178, cm, 07/24/24 14:57:00 EDT, Height/Length Dosing, 78.7, kg, 07/24/24 14:57:00 EDT, Weight Dosing Follow-up No qualifying data available Problem List/Past Medical History Ongoing ASCVD (arteriosclerotic cardiovascular disease) Back spasm Carpal tunnel syndrome, left DM type 2 [...] Oral, Daily, 1 refills Flonase 0.05 mg/inh [place], 1 spray(s), Nasal, BID gabapentin 300 mg Cap, 300 mg= 1 cap(s), Oral, Daily, 1 refills glimepiride 2 mg Tab, 2 mg= 1 tab(s), Oral, Daily, 1 refills Jantoven 5 mg oral tablet, 5 mg= 1 tab(s), Oral, Daily levothyroxine 25 mcg (0.025 mg) Tab, 25 mcg= 1 tab(s), Oral, Daily, 1 refills [place]berry 325 mg-5 mg oral tablet, 1 tab(s), Oral, q4hr, PRN pravastatin 40 mg Tab, See Instructions sildenafil 100 mg Tab, 100 mg= 1 tab(s), Oral, Daily, PRN Sodium Chloride 1 g oral tablet, See Instructions tamsulosin 0.4 mg Cap, 0.4 mg= 1 cap(s), Oral, Daily tiZANidine 4 mg Tab, 4 mg= 1 tab(s), Oral, q8hr, 1 refills Turmeric 500 mg oral capsule Vitamin B12 [...] by drinking: No. Ready to change: No. Househol (more content not included)... Normal [facility] Comment on above: Result Comment: Elec tronically Signed By: Adam COHN, Kylah Lopez.br\Date and Time Signed: 07/24/24 15:24 EDT Ambulatory Visit Summaryon 0 07-03-2024 Ambulatory Visit Summary Ambulatory Visit Summary DARIEL ZABALA :1940 Visit Date:07/03/2024 Ambulatory Visit Instructions Your [...] Follow-Up Appointments 2023 9:15 AM EST With: Kylah Garcia MD Where: [address] [address]- Tuesday 1:00 PM EST With: Dixon Dubose PA-C Where: [facility] 2024 8:00 AM EDT With: Where: [address] [address]- Medications What How Much When Instructions Unchanged [...] you for choosing us for your care. [facility] Family Medicine Office/Clini c Noteon 07-03-2024 Family Medicine Office/Clinic Note Family Medicine Office/Clinic Note HPI Staff Dariel is an 84 [...] BID, 16 gram, Refill(s) 0, each nostril, [facility]/pharmacy #[id number], 178, cm, 07/03/24 10:05:00 EDT, Height/Length Dosing, 80.8, kg, 07/03/24 10:05:00 EDT, Weight Dosing gabapentin, 300 mg = 1 cap(s), Oral, Daily, # 90 cap(s), Refills(s) 1, Pharmacy: [facility], 178, cm, 07/03/24 10:05:00 EDT, Height/Length Dosing, 80.8, kg, 07/03/24 10:05:00 EDT, Weight Dosing omeprazole, 40 mg = 1 cap(s), Oral, Daily, # 90 cap(s), Refills(s) 0, Pharmacy: [facility], 178.2, cm, 02/02/24 10:29:00 EDT, Height/Length Dosing, 84.1, kg, 02/02/24 10:29:00 EDT, Weight Dosing sildenafil, 100 mg = 1 tab(s), Oral, Daily, PRN for erectile dysfunction, 1 hour before sexual activity, # 5 tab(s), Refills(s) 0, Pharmacy: [facility], 178, cm, 07/03/24 10:05:00 EDT, Height/Length Dosing, 80.8, kg, 07/03/24 10:05:00 EDT,... 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 Normal [facility] Comment on above: Result Comment: Elec tronically Signed By: Adam COHN, Kylah Cole\.br\Date and Time Signed: 07/03/24 10:27 EDT Heart and Vascular Office/Cl inic Noteon 06-11-2024 Heart and Vascular Office/Clinic Note Heart and Vascular Office/Clinic Note Chief Complaint f/u has questions about [...] distress Neck: Supple, noJVD nocarotid bruit Cardiovascular: irregularly-irregul ar rate and rhythm, no murmur normal peripheral [...] virus vaccine, inactivated 08/02/2014 Recorded Normal [facility] Comment on above: Result Comment: Elec tronically Signed By: Ericka COHN, Kashif Craig\.claudio\Date and Time Signed: 06/11/24 13:14 EDT Heart and Vascular Office/Cl inic Noteon 05-30-2024 Heart and Vascular Office/Clinic Note Heart and Vascular Office/Clinic Note Chief Complaint Testing F/U History of [...] November and January and was hospitalized in [place] for 2 of those. He states that [...] chest pain, shortness of breath, heart palpitations, dizziness/lighthead edness, and swelling in lower legs. Review of [...] time the Holter monitor registered underlying atrial fibrillation/flutte r with minimum heart rate of 33, average [...] with voice recognition artificial intelligence software, specifically [employer], [employer] and or [employer]. Substitutions may have occurred due to the inherent limitations of voice recognition and artificial intelligence software. Total time spent pr (more content not included)... Normal [facility] Comment on above: Result Comment: Elec tronically Signed By: Gracy DOTY, Dixon Schumacher\.br\Date and Time Signed: 05/30/24 14:29 EDT Holter Monitoron 05-29-2024 Holter Monitor Holter Monitor HOLTER MONITOR ENROLLMENT PERIOD: 05/21/2024 through 05/23/2024 INDICATION: Atrial fibrillation. FINDINGS: Over the monitoring time the Holter monitor registered underlying atrial fibrillation/flutte r with minimum heart rate of 33, average [...] BY: Kashif Barnett MD ca Dictated: 05/27/2024 [id number] Transcribed: 05/28/2024 Normal [facility] Comment on above: Result Comment: Elec tronically Signed By: Ericka COHN, Kashif Craig\.br\Date and Time Signed: 05/29/24 13:13 EDT Coding Summary.on 05-09-2024 Coding Summary. KGFLUzxz30AMj5sWe+P GhlYWQ+FL6UOFUqS76a lZScnO1vC0LDLPhAAmp gQVBQTElOSyIgbmFtZT 1kaXNjZXJu IC8+BG6mNRNmEoayeUC da2C4iJG9R15ukf1dZY zbfCK7GDLsLfPdvvqmo 7qgnGw8CEheUgkaNqUv SCJfdU76MCU8kS59Az3 4dPLolFUev9ngoWw8Yh OdOHShDJZ2nCioSYhgg 4CoGFPjR51amWTjs1I4 IGNvbGxhcHNlOyBlbXB 9sE9uHOijqbkhw0jxre siWsa2je84gEWtl6K9y FD9H2IdfuP1CTShyUWd AhjjjMEUcW8bippqo3v mqjtvHaIrXJQfURl9NM y2LLMyxVhtTtLrUS26Y PE2MWDwsaByK1MfOACz bVxjLmM5s3Q9Ks5IZ5W THpwgH7QEBUYSLOeaaT Q+ZN26qo47L5LfEuxdI qr5KFXgPLW9lRR7yI6g JTOpFYuyz1J9lTZ2B1S uoqCwmz4zl1yfFFMcJZ apU34fyVPcj1P4UDXyb SH8UXBqzRhsWhMfvV43 Oyc+VTMjyQzzk0TgQuk gr1uis2qyeGh2ArfyUP DdozOqaYsmEXB6q8JiS s8vJDEyvPR7hHH4xB1l IjOfIuH6JMdqL590MdJ ekQBcCywfM77rS7MowN A+QWTsRbb3NCRdgLgwH J6oX7KuTEOjgefiaTNd kPosNP2tRXAlyefwQCW adI8fHGLqN7w3LcKmGq V8NKdxP1FwNIIgtdwrL f20nM6uBfJuBvN4WXlo L3AgvxG5CXFvsYJlXRw pKOC6M44cp6S1SECuNS TfACV6kFF1qY3khZmdn jogbGVmdDsgdmVydGlj GGjiACkdE491JYKnyUs nPkNvZGluZyBEYXRlOi AgMDYvMjYvMjAyNDwvd GQ+ZKKuHUM3dVqiWMDy uDFySPvdWy8arPhbxRv wMI8yREEzwqttYMEphD 7hHSNkmOPxiFcmDQ9uX PTzxhkcv014LkAdJYK1 HMRzmNQrN8HmbC3iAjB eIDCsMZHeO6CfxFBnHD ohN072WGiqHnN1MRHug jYwD6CdTJMtpVpmOiC1 o5J0Ci7Ii9MkggjcV9X nvFRrDbNgQbapFZg3I1 RkPjwvdHI+YG21VAYaU H36RXa0YQV8fLgePOhn FMLrW9VfaJ0zDcTeSQV kZGRkOyc+PHRhYmxlIH dpZHRoPScxMDAlJyBzd WhvPF9dRa9gXGKrWQNm rPhtzHCdIjIbg8ozLQM zRWajDT9rzYmaJ5YhbE X8MKEsz9d7Ar03M79pG 3JvdXA+LVStxPL3yUF3 gR7vRnVtNoW7DNgmP94 6RxKkcNMyVdgui0gcn9 xjnYy9IbA8TLHbeoYcl XqpYGB7y9QaPc06M98w IHdpZHRoPSIxNSUiIHZ igFwdvd8dgO8bXr9+PG TvrGC4bAQ6rL1oXrEsD xK5WYjnL829ObEyeLRw Ebhcg9fra3dapRf9VhB kLVQmyvWgzFnsWYO8x8 ZzMf93C8CyhFcfh4OsY wd5cz35fJNgp9U2eXL9 G8FvSORsviqxiJYjcEh nYK7nEXNrfnpmZZNywM 7aVWUaQ3n5DhGwTcM9K YigE7TdrsH8AWEtuMKq UQZllHUBvN2ilpqcc4p aklerHdPfMMQeGAv6TQ c2BUIukGbbAuJrAPJ5P uU9TXR3qXXrjI2maWkk tlhgmJ5bAhr+UOZ4mUI ftVSTVE5kQhenuIX+PH BkISY7mKnlMCjxRJTjw A7tNRZvW6w3FwUwRbW3 UTlvY0TjliP9LRFecCB iLAZorSHBfV0xcploz6 qessigNpIxOMQjRWr5I Rc0TBAgyGxvPaEyXTH5 XuH7HJE5vAByaX7bpRk rbjcjhX9kPes+QmlydG vqSPF3UIm9C9GwEgm1E QTzqVrwBN4yaNSkEPxz Mw4xsGptrRxuSV0fXGT axlwnk177QrWtk2awEQ HuiCCnOCukWKN5H42ft 0N3UTYbLXCmUFR6ePX3 xK2nuQsxuwfvpIQltPa gdmVydGljYWwtYWxpZ2 99ZFUuaNlpEbNkSFo6C 4FiWmu2WKByyMcnNN7q iYPwBNrbHc4yrEzklSe sHW6bZDKfjnbvf689Ne Pek2ugRIXdzUCvOFvaM RR6P32ur7N0SMWuVYQt PNY4eWG3tV3vzSsfxdn gbGVmdDsgdmVydGljYW idBVwqH078WCRkiHyjN hOrdOi8Z0StDmq2YQQk vQfgLK2tsCOjSLouAb7 wiOnawDgoYE8xBUOgfz iba365VdZpr7sfXSMgq ZJyCJgpEXL8E53aw3N8 PTXuPDPoSFI8iVZ4xL7 hbGlnbjogbGVmdDsgdm EjcRrfQNifVRobL961P HRvcDsnPlBhdGllbnQg YOasZMg7J4TlRbrwyTL +RA80EICgWK38xFQhyN Ric9ocxMu5RgDbWAUmC SL3yFijGZjfx6QpYHKj T33ytPFve2F9BBSydLn plIIdBwMqvHQ5kR8oJL avdrarq7ekuhubGrpfm 2thdi47oT72E05cVIqx ZHRoPSIzMCUiIHZhbGl eyi4gqZ5dQy6+PGNvbC Q7lDJ6uO1nBKZlHsN3R ZjmV788CjWczCIoDusm j0vkp3prlNm4CoK3VJH lhqPztPyzORS6u4RnOh 55Q53cHKzlVWZmUMBiX BXtWUHoqAqdmz6heK8p Ii8+ISUfxAF7rJX4nP6 lQuZxSlE2LVhvB798Qm PisNMcOzreN44bK2Vxs XA+NYEjVmq2ICAcrLfz SN3msJRsYVfcCp8jICU 4VpKdFcEpMNqtB2LrKH NxnvarpszhlCI2CMOmD WBbvT10Cp9mdZasWUWr uELMdO8wdfbgg1qyjti jAnZaFZHpBBf0YQv9HI SbuXvtYmKkZPS8ZmP4A KT1gZQuiY2ypBkxuocc tQ5fP6OiWJZamqakBj8 3xI7kJmJxUtM3IYdpHi c+OvWTGvutDn8VOYYTG Q05XK33dBQsa6K8vZX4 Q2UgRXRkeodpefxhgSM 4WDInGNVbtL16yXMdHP nzEw4by2Y3i891PSUxU QFtbE73Zo0jsIxgZAPf hRYXmS7lpzyej6vqsaa wFzMaCRJcWJv4VMb1HK KjtRyxVxPbNEO0KqV1J IL8kRFmnY9biKqffalt sZ1sXsn+MDYvMDkvMTk 0MjwvdGQ+MPXlGXT7iQ exZOenIXKkqC0dXUPaX 7o4PtYyKaV3GBpqA2Qp UXSnoailOk22vX9pZwJ bUvM8UWcaF0BjsiX9II ShvUDyENgwXNM5U18zj 8G9PDKcWMPgGHO6mML9 wB8jiUuivmjezITzlCo gdmVydGljYWwtYWxpZ2 46IHRvcDsnPjgyIFllY PPhKL30JS53fNObu6J7 xPF3C2XvSNZzskqynmy mtER8EVYyQGCefR74lP GeCOmxQk1if1K1y766S FPnUPMqbJ60Kp2gjLqu RBLnsDPGuY4nbxmot6i ositaNcDzIYWaHFn3VX i3BTDsiUsbTkJoOQH0R kI1ZGU8sODjoV0ebOve ppfzlO6rRti+TWFsZTw vdGQ+NPOwCLB0gImcVF soFUDatY8iBJCpC2b4W dJtWoD8LLvkS5EmIDDr hcvcBo46yG9eXuUzMzB 9SEwiC1ChakU2SSEasC ZpMTjcYJQ7D93bo4W4N DHfNAHsVTG8rBV4cK1k bGlnbjogbGVmdDsgdmV hwDixEOopPHzbS373SL XkvSjnSi53rCYqdQdhv pS1U6BkWravdBY+PC90 XDLyLT20yVTicLXfb2s dhMx1ExCePENsIIB7oC deUAaem9HhFJJeY20ka PHjs3Z5CHMxzXiqyGDd CoKlwTL2oQ8yVRolyxb gq7sonlljCoqar3ighy 26fT50O78cPMycSWRaL KReEJIgFNYjgAlqta3t uM9mOl7+IBEteGY9fDO 8gM4iBbWcFfR3OVygO3 19KwNdnJJuXogfg7moz 8dkbTy4TuWjACOrrnZy xSbmVCF4a9EyZl54U64 sIHdpZHRoPSIyMCUiIH HjfEmfdn2pkD1lUs9+P D3am4bxya30zM41uIW+ KSFbBQK4vCzaTFiqXLW qeX5lFPwhScK4VMVeFz BcuF98gCTyBGevFu0yn RngjRobGR8gKJXqxahf y914EeWnj8lwDEMgrNM fZPjkSWA6I83wq7F8EM IbFLShUXJ8lPL6jE2rq GlnbjogbGVmdDsgdmVy vOnnWPdwMKqkC659TWQ twIytUqOzrXLhO3vnxt TQSL9mYxljwYJ+PHRkI ZD1nMmfCNtqBMNxeK8z EDBwS3h7JlNtQiL3YAy uI5QkmvY3LVZpyPBlYS KctVYMrV6fpzndx7lfw ztrKhMyLXTlOWp2LEl4 AQPlcUwyNnQgJNQ6OqQ 7NMA7yAQgkB0uaLbsyx jdpI6oGks+RklOOjwvd GQ+EXGfVMT2wOtpSVlt NNKjnX3iFMCmY9i3AeJ qQoV4UFldA4LqouA4NT NwdKVvBAOgfJJFrH8yj cumq3ecasnlCgNzGGGd BRr6QVe6UGHiwVanLhN tMTR3CtB9HZE2sULvzW 9rwIvjsnybzP4fThk+T VJOOjwvdGQ+PHRkIHN0 lOsfJDyrCUKqyO8zPJC vX5x1XrVyCtZ7FNptR4 MzehO5UZFewFZeYQXlm PMOlG6fdmtnv3aqpmzg FhVeQNHrYDl2QDl4ERB tdYlaFdIoQNH0ObU9ZB X2vEMgiI7bgPxlvfyop G9wOyc+PGU1OTW3IE02 KY71H1OuLugehQPajPE +PHRhYmxlIHdpZHRoPS zqLMEbOzLqlRexNY8vJ r4qQDDfKRRymFfjxOLk VfEyr3psYOUdP (more content not included)... Normal [facility] Coding Summary.on 05-08-2024 Coding Summary. OCSJAbob47WUg9sLm+P GhlYWQ+MS4KUZGgV46g rAHjaS2pV8SUPLxMQqb gQVBQTElOSyIgbmFtZT 1kaXNjZXJu IC8+EW9lRTPsKwttzKJ pq3K2rYP3O56avw6gJK gsjGG0ZNTbTpGfirmab 7tfrKx2NAbgXmeyVlDy FZXavG21NQX3eI05Kk2 9eCPhoIDgs2pclUw5Un RoQPWqLEO1aZmtBKtdd 7EcHHXdQ97elBXem0G2 IGNvbGxhcHNlOyBlbXB 8xR0jOPjhobzrt8mtvo fiSha4nb19mCLed4I1g ST7P8ZeizN1WJKjiYHq GsdouHEAqL7qlrxfm4l iotscRfDwIIBoEXz8MI s1OIFkyYxzFaPoLC81M AP8IPZtlsCcW8TnJIFj fHbnAdN3u1B0Iv6XA5M LEuhrB5SYPUFVONxneO Q+QS47jl28N3PjVvvbW zg5SFQfIAD8yOC9qP3m FHKsPNmlo6W3vCY4B6K llzUnac4az0lcUGUgCC wlD54apYIgt1X9ZNTed LU2RESqmFdpWzDmfO46 Oyc+DLCjhVhik9CrWqq in7imu7gxuUt1MzwhXB NcyjXwrEnnNGC2a2DaG f9zHBRkbQK2kHW6yH5i ZcGdReO4PTyuF614OzR pmYDgLtcvU23gK7FizT A+GNGdOeg1CZKcwWkmF V1lL2GaQWRmkyulhSBo tZnsYP5bMEIrbbmzNZJ npA1fVNRkS3p3QcWgJu C2UFwjD2AuMRJhneudJ j08aE5pCwXxThV8FHwt L4FfrdL1LWHtvIJfQPu oVKT4C48qt8V9HJGgXO PnXHV1fOT1aD0jdMyup jogbGVmdDsgdmVydGlj EUwnNUffV977MRNpdSc nPkNvZGluZyBEYXRlOi AgMDYvMjUvMjAyNDwvd GQ+BPNiUWS8vYafBIKw kCPjXUfaRw2peFaxgPs fTZ7pBQNeltwiXBPxcL 0sWYElwUPymNgnKP0bT NCavdzcv357NiTyDRI0 TMAdrQJbD2NkhZ9nJyE zNFYqTSFsQ1VxzRZcCD obB931PBjxEwR3AUXcr qExD7TrAUGsfJzlGzX0 x6Y0Ut8Zx5FjdjstP3U duDJaOnTgCwlyIHi5O8 RkPjwvdHI+LC02TSUqE O27IFu5LEP9nEkjMBjz KSNyH9WhsB8wPzOgYEL kZGRkOyc+PHRhYmxlIH dpZHRoPScxMDAlJyBzd ItxSO8hDa5oWYPxBYOo sYefsYGoSiUad5eyOQL jUMrlSQ6elOooZ4FayY L9GBJsv5y5Ol83D66kU 3JvdXA+VBJqyNI7eSB7 vS3rByIuFnF8IEgdP53 9EdAhhSJkGzjhc2omy4 pszTj6IuO3LQAsdoUqr BjbHDX3o0PxQe33V75r IHdpZHRoPSIxNSUiIHZ wgAsonj0fpN4gSe7+PG PmxQD1kAV5pE4zBxXlK oO4UUvnT656ImRpeMHx Vctau2fvd9cioBs6BoB eAJAgweEeaPiaHHQ7f4 MtCk58L8YudCzzw9DnC ti1jt19vHPiw5V2jFX8 Z2CdFWQynjsztELrmXq pRM1fRPKqucwyCZOsuM 4pNSGlH1s7QfDtKaZ2U QhxI5UqwdR5GHMiqMKt XRIvgQAWbV4hghtjq8g dcyiwAfHcZBKdCJt3RC f5FOXwcXegRrAzZHZ0L kU9YUK3tXMjmD6xaWhl ilqkoC2nLsp+DTD2fWA fxBZVMM6kXmcoiWW+PH CcENJ4eOoeXWyzKWBmj Q0aVMRfQ4x5XvWiBqZ9 CRzzO1OseoD0FHMuiFL hVQRgzTMOfB6ydynyl8 kdnbonUrHiKEGhHRr6Z Uk2LWKgoJkhBpWsNXQ6 XiA0DJV4rOWsrD5yjZa auigceY8uBei+QmlydG jiNMI5FRm3P3GhFlb8Y AAzmZkoOW5wnSPkYPxx Wt2mxVgrjEqnRV1yYID qipncw660EvAfe3gxLK VynEKjJLpnKGR8E70gj 1X8CSMjKZPqSGU4wRG9 dY0aeYhdkezjlBFrcYh gdmVydGljYWwtYWxpZ2 61HQAbxWmkPjToONm1P 0RhXkc2FBXurQnuZB1m nMAqXJdoKf4xjTiqhPu iLZ6zJASizqliu129Ry Eax4xlUVXkxFUiFYajH ZP1T65qi5K3TDDtEXEa TWF4sBB5dR1noPhkgmn gbGVmdDsgdmVydGljYW ayZFxmV165OEBstWziC xFlmSm1B8UiPps8TOEd fTylHF7xtKXrPFkbRi4 nlTozgKcaLF6uYIZcct gim254PuDrj8ljVOPmx GHmLXlaAUW1L30vt8U6 MXDzBNBzAWF2vJL5qU4 hbGlnbjogbGVmdDsgdm ZhuGgqKFnuSCbbD478I HRvcDsnPlBhdGllbnQg XIkeWAu9T4OfDgamwIW +DS57WQRjTM80gPJtpT Ieg8bdwXy3JzDvSNIiF VN3cCbjTTpuw8MhQYLg Q49ohHBtw1T7YHQkfIl twKEcLfRneCG2lV8xSI lunjhwp3fmmghyZkuru 5zqqg39jB82M33iDUdd ZHRoPSIzMCUiIHZhbGl mpk8uwT4dTz6+PGNvbC K1fUO7bB6wDUJgAbE3C CfzI734ZgIwcRWkGqet d8wdc0qgdTq9RmG2HYZ lniMxkVibHCI6z5IzYk 65V49mWWbiOPRsSZPpF MPuOZKmzVdfwa5jzY6n Ii8+GKAhdPF7iJC7lJ4 eQiKuQhX1AIllU162Pn DdnGHfQetcH02uI7Rjp XA+WEPpXsz0BQKnpKzg PB3soYNgDOkcOb0lDTQ 3VqNtFvYuPUgbY5GdMZ EayojpbbnfhKV3CESmT UNxrK20Kq2fgGouWBRr eRGSwM8hyftzu4owojl vGiLrAZMyHQu7VGb8FZ VwoHrhIkHeOXU4BgM7J BN7cBQupG2rcSfyjojs uM2eF6YsGWVrsrgxOa6 3kE9lCrPcAmT2OLxnNm c+FgDPPvijJl4YFVVGZ P88PA34jUMhq3B4yJJ6 C1JfYWEyfeemkjddxMC 2YGMiQQFanN91yYUqXZ yjSm1qg6R8m011JKRgK TOimV31Yv8nvCxgENWq tHAYbB6pkewvo9nrenc xUmOlMIIcSAn3ESd9CE GynThrSdGaQQX6OiW8Q KP5vIDscN5ixHxnvlwv mM4tRap+MDYvMDkvMTk 0MjwvdGQ+YKYyXKC1zR kpMFhvULDqjV9fOSLnC 6m0HqZuPqJ8XUahX9Ag TAXipcckUu44iE7xLeL hRbX5UZjeK8NiwsW6IM EnfVFzJSspDDS3U37hk 6R7BGZbYAViTGZ6dHE6 lG3rxBlmydzyuVFuvYa gdmVydGljYWwtYWxpZ2 46IHRvcDsnPjgyIFllY VVhVF60ZG28rYWkg3C8 gSP8L0FbDOGcvjutkjk urLB6LBStDSBouD95cB HtXMiuSb2oh6Z1i787K XUjHYTevX86Wa0snUih YXGxfCIPmW2afjsyb1j siegeFzTnJUXkCIw6VL t8SCBcyHrqAeSzJSK1U gL4JZG6nDWfyN8coVoy xfolcT6kIsr+TWFsZTw vdGQ+MQCoFMC7vFsnJF zrRBHmdO9nCNYnW9i2S xMcFlL1AMykI3QvAKCj wwqiLs40mW3lExGaMeW 8QLhwF9JqxwP1XZHgiV ReEVotJSV7O49pd6R1U VMwUKHfKVS6eGL9kV4h bGlnbjogbGVmdDsgdmV ngNqaHQjvCGwiG980ME VpvGtjKdoaExABor5vX S5lEowntRS+HB91gr06 J2DsKdbqUpq7VHQaZOL 3rRN3oN9zGJDkIRzks6 D3jMW5Z6GulkExwb1dn 4fvBORdIQeaH53vtXCu c0T8CFProSC2TEVgoGd qWrEueK43Apy+PGNvbG cdd3UeDtujv5jsj2ell Wq7ObTjDHSrjgQsrSzj ZIL9d8XwXs15C76aVUw pZHRoPSIzMCUiIHZhbG zzzo2hrG4dPz0+PGNvb EN4nZB4gK9mRtIlAwQ3 LXzyM538JePqeCFbXnx gu7ied4hjxRw9OhKeTQ RpfnQykLftZRR5h2NdR j59R4CprCrrh9ZtJsa4 af91fDRzd1V4nEL9S4Y hZGRpbmctbGVmdDogMC 3uUNLuznzsTCIdkF7nE CWyR5h1JoEdCiQ8WUny R6VdppU0GIIkjGBuLJW szGMIrC8cazyee4enqq keSiIbTQCuXRn9QSf1S YYsoTvnHyXlZBV5RaH1 CHA6eFKbjI8wyBzguzk txR6xLex+CCl6o0qaaZ ByKZ8epSR8PY00OG67v KIjy3U4xDP8V9VrDSLl lzdffqexuKH7FAXjFLY sxA02Oc4bfQpqTg3sEQ ApDKU6BAUvlMKjB2Fxe T8oKmXeUPZvWSYhW5Vh hZKoJBawS150QLdfWwR 7LWOehnIoX4IvGFDqzP lkGkJ2x7J3Al1WOL37P Y75SP12dHXqi7Z9bDA3 J7KnHQZdcsrcdxbiyZD 2YBJlCSQctE62Ge8bfX foUh2gNXJwUSJ8JAKqd SVhK1VtmM3uTqCmJTVp BEJgF8PuuXUjSZvoT56 9BCwaExI9FDYygfTcG8 TcLBPxyNauXuP1b9L9X f2IZt29LC05JO51bYKi q0T4lLI8E1OhZZUtbyd pjybwwGG4QYIgZBAoeE 37Ra2epSxkAq2yNEPjO CB0TZKhfSDjE0QhlD8n XtDkEPQaDTDfO6JekVA wZDcyP788FLdnPlQ1LW TfkcGvB3PlPPUtxArmM dL7b0Z9Hm6OLYcjgmo1 S8CfRzzunYG+EO66NRT fJH15lOOafYZfa7ftvZ d7DmXdRUSaBTN1iEqzL Kehp3ZdWCGsI69leLJw u3H8NQNnnSnnz (more content not included)... Normal [facility] Consultation Noteon 05-07-20 Consultation Note [id number] D#[email or web address] Normal [facility] Ambulatory Visit Summaryon 0 05-03-2024 Ambulatory Visit Summary DARIEL ZABALA :1940 Visit Date:05/03/2024 Ambulatory Visit Instructions Your [...] Cardiovascular Services Tuesday 1:00 PM EDT With: Kashif Barnett MD Where: [facility] [place] 2023 9:15 AM EST With: Kylah Garcia MD Where: [facility] [place] Normal [address] [place] [address]- \.br\ Medications\.br\ What How Much When Instructions\.br\ Unchanged atenolol (atenolol 25 mg Tab) See instructions take 1/ 2 tab daily \.br\ Unchanged cholecalciferol (D3) See instructions Oral Daily- patient states he takes 500 once a day \.br\ Unchanged cholecalciferol (Vitamin D3 5000 intl units (125 mcg) oral tab) 1 Tablets By Mouth Every day\.br\ Unchanged cyanocobalamin (Vitamin B12)\.br\ Unchanged finasteride (finasteride 5 mg Tab) 1 Tablets By Mouth Every day\.br\ Unchanged gabapentin (gabapentin 300 mg Cap) 1 Capsules By Mouth Every day\.br\ Unchanged glimepiride (glimepiride 2 mg Tab) 1 Tablets By Mouth Every day\.br\ Unchanged levothyroxine (levothyroxine 25 mcg (0.025 mg) Tab) 1 Tablets By Mouth Every day on an empty stomach \.br\ Unchanged omeprazole (omeprazole 40 mg Cap-DR) 1 Capsules By Mouth Every day\.br\ Unchanged pravastatin (pravastatin 40 mg Tab) 1 Tablets By Mouth Every day\.br\ Unchanged sildenafil (sildenafil 100 mg Tab) 1 Tablets By Mouth Every day as needed for for erectile dysfunction 1 hour before sexual activity \.br\ Unchanged sodium chloride (Sodium Chloride 1 g oral tablet) See instructions patient states Dr. Najera took this down to one tab once daily \.br\ Unchanged tamsulosin (tamsulosin 0.4 mg Cap) 1 Capsules By Mouth Every day\.br\ Unchanged Turmeric (Turmeric 500 mg oral capsule)\.br\ Unchanged ubiquinone (CoQ10)\.br\ Unchanged warfarin (Jantoven 5 mg oral tablet) 1 Tablets By Mouth Every day\.br\ Allergies\.br\ No Known Medication Allergies\.br\ Problems\.br\ Ongoing - Any problem that you are currently receiving treatment for.\.br\ ASCVD (arteriosclerotic cardiovascular disease)\.br\ Carpal tunnel syndrome, left\.br\ DM type 2 causing vascular disease\.br\ Encounter for surveillance of abnormal nevi\.br\ Erectile dysfunction due to arterial insufficiency\.br \ Fall at home\.br\ Hard of hearing\.br\ Hyperlipidemia\.b r\ Longstanding persistent atrial fibrillation\.br\ Osteoarthritis\.b r\ Syncope\.br\ Trigger finger\.br\ Historical - Any problem that you are no longer receiving treatment for.\.br\ Body mass index (BMI) of 25.0-25.9 in adult\.br\ Patient Survey\.br\ You may receive a survey via text or e-mail asking about your office visit. Please share your experience with us by completing your survey. We appreciate your feedback and thank you for choosing us for your care.\.br\ Education Materials\.br\ Type 2 Diabetes Mellitus, Self-Care, Adult\.br\ Caring for yourself after you have been diagnosed with type 2 diabetes (type 2 diabetes mellitus) means keeping your blood sugar (glucose) under control with a balance of:\.br\ ? \.br\ Nutrition.\.br\ ? \.br\ Exercise.\.br\ ? \.br\ Lifestyle changes.\.br\ ? \.br\ Medicines or insulin, if needed.\.br\ ? \.br\ Support from your team of health care providers and others.\.br\ What are the risks?\.br\ Having type 2 diabetes can put you at risk for other long-term (chronic) conditions, such as heart disease and kidney disease. Your health care provider may prescribe medicines to help prevent complications from diabetes.\.br\ How to monitor your blood glucose\.br\ \.br\ ? \.br\ Check your blood glucose every day or as often as told by your health care provider.\.br\ ? \.br\ Have your A1C (hemoglobin A1C) level checked two or more times a year, or as often as told by your health care provider.\.br\ ? \.br\ Your health care provider will set personalized treatment goals for you. Generally, the goal of treatment is to maintain the following blood glucose levels:\.br\ ? \.br\ Before meals: 80?130 mg/dL (4.4?7.2 mmol/L).\.br\ ? \.br\ After meals: below 180 mg/dL (10 mmol/L).\.br\ ? \.br\ A1C level: less than 7%.\.br\ How to manage hyperglycemia and hypoglycemia\.br\ Hyperglycemia symptoms\.br\ Hyperglycemia, also called high blood glucose, occurs when blood glucose is too high. Make sure you know the early signs of hyperglycemia, such as:\.br\ ? \.br\ Increased thirst.\.br\ ? \.br\ Hunger.\.br\ ? \.br\ Feeling very tired.\.br\ ? \.br\ Needing to urinate more often than usual.\.br\ ? \.br\ Blurry vision.\.br\ Hypoglycemia symptoms\.br\ Hypoglycemia, also called low blood glucose, occurs with a blood glucose level at or below 70 mg/dL (3.9 mmol/L). Diabetes medicines lower your blood glucose and can cause hypoglycemia. The risk for hypoglycemia increases during or after exercise, during sleep, during illness, and when skipping meals or not eating for a long time (fasting).\.br\ It is important to know the symptoms of hypoglycemia and treat it right away. Always have a 15-gram rapid-acting carbohydrate snack with you to treat low blood glucose. Family members and close friends should also know the symptoms and understand how to treat hypoglycemia, in case you are not able to treat yourself. Symptoms may include:\.br\ ? \.br\ Hunger.\.br\ ? \.br\ Anxiety.\.br\ ? \.br\ Sweating and feeling clammy.\.br\ ? \.br\ Dizziness or feeling light-headed.\.br \ ? \.br\ Sleepiness.\.br\ ? \.br\ Increased heart rate.\.br\ ? \.br\ Irritability.\.br \ ? \.br\ Tingling or numbness around the mouth, lips, or tongue.\.br\ ? \.br\ Restless sleep.\.br\ Severe hypoglycemia is when your blood glucose level is at or below 54 mg/dL (3 mmol/L).\.br\ Severe hypoglycemia is an emergency. Do not wait to see if the symptoms will go away. Get medical help right away. Call your local emergency services (911 in the [place] Do not drive yourself to the hospital.\.br\ If you have severe hypoglycemia and you cannot eat or drink, you may need glucagon. A family member or close friend should learn how to check your blood glucose and how to give you glucagon. Ask your health care provider if you need to have an emergency glucagon kit available.\.br\ Follow these instructions at home:\.br\ Medicines\.br\ ? \.br\ Take prescribed insulin or diabetes medicines as told by your health care provider.\.br\ ? \.br\ Do not run out of insulin or other diabetes medicines. Plan ahead so you always have these available.\.br\ ? \.br\ If you use insulin, adjust your dosage based on your physical activity and what foods you eat. Your health care provider will tell you how to adjust your dosage.\.br\ ? \.br\ Take ykly-bkg-wyztjta and prescription medicines only as told by your health care provider.\.br\ Eating and drinking\.br\ \.br\ What you eat and drink affects your blood glucose and your insulin dosage. Making good choices helps to control your diabetes and prevent other health problems. A healthy meal plan includes eating lean proteins, complex carbohydrates, fresh fruits and vegetables, low-fat dairy products, and healthy fats.\.br\ Make an appointment to see a registered dietitian to help you create an eating plan that is right for you. Make sure that you:\.br\ ? \.br\ Follow instructions from your health care provider about eating or drinking restrictions.\.br \ ? \.br\ Drink enough fluid to keep your urine pale yellow.\.br\ ? \.br\ Keep a record of the carbohydrates that you eat. Do this by reading food labels and learning the standard serving sizes of foods.\.br\ ? \.br\ Follow your sick-day plan whenever you cannot eat or drink as usual. Make this plan in advance with your health care provider.\.br\ Activity\.br\ ? \.br\ Stay active. Exercise regularly, as told by your [facility] Ambulatory Visit Summary CLIFFORDDARIEL Solitario :1940 Visit Date:05/03/2024 Ambulatory Visit Instructions Your Diagnosis DM type 2 causing vascular disease Longstanding persistent atrial fibrillation Mixed hyperlipidemia Hyponatremia Erectile dysfunction due to arterial insufficiency Syncope Your Care Team Attending Physician - Kylah Garcia MD Primary Care Physician - Kylah Garcia MD. This Is Your Medications List Contact prescribing [...] Appointments Tuesday 10:00 AM EDT With: Where: Cardiovascular Services Tuesday 1:00 PM EDT With: Ericka COHN, Kashif Craig Where: [facility] [place] 2023 9:15 AM EST With: Kylah Garcia MD Where: [address] [address]- \.br\ Medications\.br\ What How Much When Instructions\.br\ Unchanged atenolol (atenolol 25 mg Tab) See instructions take 1/ 2 tab daily Contact prescribing physician if questions or concerns \.br\ Unchanged cholecalciferol (D3) See instructions Oral Daily- patient states he takes 500 once a day Contact prescribing physician if questions or concerns \.br\ Unchanged cholecalciferol (Vitamin D3 5000 intl units (125 mcg) oral tab) 1 Tablets By Mouth Every day Contact prescribing physician if questions or concerns \.br\ Unchanged cyanocobalamin (Vitamin B12) Contact prescribing physician if questions or concerns \.br\ Unchanged finasteride (finasteride 5 mg Tab) 1 Tablets By Mouth Every day Contact prescribing physician if questions or concerns \.br\ Unchanged gabapentin (gabapentin 300 mg Cap) 1 Capsules By Mouth Every day Contact prescribing physician if questions or concerns \.br\ Unchanged glimepiride (glimepiride 2 mg Tab) 1 Tablets By Mouth Every day Contact prescribing physician if questions or concerns \.br\ Unchanged levothyroxine (levothyroxine 25 mcg (0.025 mg) Tab) 1 Tablets By Mouth Every day on an empty stomach Contact prescribing physician if questions or concerns \.br\ Unchanged omeprazole (omeprazole 40 mg Cap-DR) 1 Capsules By Mouth Every day Contact prescribing physician if questions or concerns \.br\ Unchanged pravastatin (pravastatin 40 mg Tab) 1 Tablets By Mouth Every day Contact prescribing physician if questions or concerns \.br\ Unchanged sildenafil (sildenafil 100 mg Tab) 1 Tablets By Mouth Every day as needed for for erectile dysfunction 1 hour before sexual activity Contact prescribing physician if questions or concerns \.br\ Unchanged sodium chloride (Sodium Chloride 1 g oral tablet) See instructions patient states Dr. Najera took this down to one tab once daily Contact prescribing physician if questions or concerns \.br\ Unchanged tamsulosin (tamsulosin 0.4 mg Cap) 1 Capsules By Mouth Every day Contact prescribing physician if questions or concerns \.br\ Unchanged Turmeric (Turmeric 500 mg oral capsule) Contact prescribing physician if questions or concerns \.br\ Unchanged ubiquinone (CoQ10) Contact prescribing physician if questions or concerns \.br\ Unchanged warfarin (Jantoven 5 mg oral tablet) 1 Tablets By Mouth Every day Contact prescribing physician if questions or concerns \.br\ Allergies\.br\ No Known Medication Allergies\.br\ Problems\.br\ Ongoing - Any problem that you are currently receiving treatment for.\.br\ ASCVD (arteriosclerotic cardiovascular disease)\.br\ Carpal tunnel syndrome, left\.br\ DM type 2 causing vascular disease\.br\ Encounter for surveillance of abnormal nevi\.br\ Erectile dysfunction due to arterial insufficiency\.br \ Fall at home\.br\ Hard of hearing\.br\ Hyperlipidemia\.b r\ Longstanding persistent atrial fibrillation\.br\ Osteoarthritis\.b r\ Syncope\.br\ Trigger finger\.br\ Historical - Any problem that you are no longer receiving treatment for.\.br\ Body mass index (BMI) of 25.0-25.9 in adult\.br\ Patient Survey\.br\ You may receive a survey via text or e-mail asking about your office visit. Please share your experience with us by completing your survey. We appreciate your feedback and thank you for choosing us for your care.\.br\ Education Materials\.br\ Erectile Dysfunction\.br\ Erectile dysfunction (ED) is the inability to get or keep an erection in order to have sexual intercourse. ED is considered a symptom of an underlying disorder and is not considered a disease. ED may include:\.br\ ? \.br\ Inability to get an erection.\.br\ ? \.br\ Lack of enough hardness of the erection to allow penetration.\.br\ ? \.br\ Loss of erection before sex is finished.\.br\ What are the causes?\.br\ This condition may be caused by:\.br\ ? \.br\ Physical causes, such as:\.br\ ? \.br\ Artery problems. This may include heart disease, high blood pressure, atherosclerosis, and diabetes.\.br\ ? \.br\ Hormonal problems, such as low testosterone.\.br \ ? \.br\ Obesity.\.br\ ? \.br\ Nerve problems. This may include back or pelvic injuries, multiple sclerosis, Parkinson's disease, spinal cord injury, and stroke.\.br\ ? \.br\ Certain medicines, such as:\.br\ ? \.br\ Pain relievers.\.br\ ? \.br\ Antidepressants.\ .br\ ? \.br\ Blood pressure medicines and water pills (diuretics).\.br\ ? \.br\ Cancer medicines.\.br\ ? \.br\ Antihistamines.\. br\ ? \.br\ Muscle relaxants.\.br\ ? \.br\ Lifestyle factors, such as:\.br\ ? \.br\ Use of drugs such as marijuana, cocaine, or opioids.\.br\ ? \.br\ Excessive use of alcohol.\.br\ ? \.br\ Smoking.\.br\ ? \.br\ Lack of physical activity or exercise.\.br\ ? \.br\ Psychological causes, such as:\.br\ ? \.br\ Anxiety or stress.\.br\ ? \.br\ Sadness or depression.\.br\ ? \.br\ Exhaustion.\.br\ ? \.br\ Fear about sexual performance.\.br\ ? \.br\ Guilt.\.br\ What are the signs or symptoms?\.br\ Symptoms of this condition include:\.br\ ? \.br\ Inability to get an erection.\.br\ ? \.br\ Lack of enough hardness of the erection to allow penetration.\.br\ ? \.br\ Loss of the erection before sex is finished.\.br\ ? \.br\ Sometimes having normal erections, but with frequent unsatisfactory episodes.\.br\ ? \.br\ Low sexual satisfaction in either partner due to erection problems.\.br\ ? \.br\ A curved penis occurring with erection. The curve may cause pain, or the penis may be too curved to allow for intercourse.\.br\ ? \.br\ Never having nighttime or morning erections.\.br\ How is this diagnosed?\.br\ This condition is often diagnosed by:\.br\ ? \.br\ Performing a physical exam to find other diseases or specific problems with the penis.\.br\ ? \.br\ Asking you detailed questions about the problem.\.br\ ? \.br\ Doing tests, such as:\.br\ ? \.br\ Blood tests to check for diabetes mellitus or high cholesterol, or to measure hormone levels.\.br\ ? \.br\ Other tests to check for underlying health conditions.\.br\ ? \.br\ An ultrasound exam to check for scarring.\.br\ ? \.br\ A test to check blood flow to the penis.\.br\ ? \.br\ Doing a sleep study at home to measure nighttime erections.\.br\ How is this treated?\.br\ This condition may be treated by:\.br\ ? \.br\ Medicines, such as:\.br\ ? \.br\ Medicine taken by mouth to help you achieve an erection (oral medicine).\.br\ ? \.br\ Hormone replacement therapy to replace low testosterone levels.\.br\ ? \.br\ Medicine that is injected into the penis. Your health care provider may instruct you how to give yourself these injections at home.\.br\ ? \.br\ Medicine that is delivered with a short applicator tube. The tube is inserted into the opening at the tip of the penis, which is the opening of the urethra. A tiny pellet of medicine is put in the urethra. The pellet dissolves and enhances erectile function. This is also called MUSE (medicated urethral system for erections) therapy.\.br\ ? \.br\ Vacuum pump. This is a pump with a ring on it. The pump and ring are placed on the penis and used to create pressure that helps the penis become erect.\.br\ ? \.br\ Penile implant surgery. In this procedure, you may receive:\.br\ ? \.br\ An inflatable implant. This consists of cylinders, a pump, and a reservoir. 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 Vision Screen Comments : Wears corrective lenses to read, does not have an eye dr. Has not had a DM eye exam in over two years, encouraged to establigh with an eye dr and get a DM eye exam, patient states he has just been busy, Martha Abdullahi LPNvarinder Nickerson - 05/03/2024 8:01 EDT Advance Directive FT Advance Directive : No Patient Wishes to Receive Further Information on Advance Directives : No Organ Donation Consent : No Abdullahi JOSE DE JESUSMayankRenetta L - 05/03/2024 8:01 EDT Procedures / Surgeries FT - Procedure History (As Of: 05/03/2024 09:05:32 EDT) Anesthesia Minutes: 0 ; Procedure Name: Surgery, neck X 2 ; Procedure Minutes: 0 ; Last Reviewed Dt/Tm: 05/03/2024 08:24:28 EDT Procedure Dt/Tm: 03/26/2024 ; Location: [facility] ; Anesthesia Minutes: 0 ; Procedure Name: [...] No. Comments: 05/03/2024 8:27 - Renetta Abdullahi LPN L: Patient states he drinks a rum and diet coke once or twice a month. 03/06/2024 8:23 - Bernarda Mark RN: maybe 3x/ month (Last Updated: 05/03/2024 08:27:48 [...] Renetta Abdullahi LPN - 05/03/2024 8:01 EDT [facility] Sexual problems : Never Trouble eating well : Never Teeth or denture problems : Never Problems using the telephone : Never Renetta Abdullahi LPN - 05/03/2024 8:01 EDT Confident you control health problems : Very confident Difficulties driving your car? : No Seatbelts : I always fasten my seat belt Renetta Abdullahi LPN - 05/03/2024 8:01 EDT Depression Screening (more content not included)... Normal [facility] Comment on above: Result Comment: Elec tronically Signed By: Kylah Garcia MD\.br\Date and Time Signed: 05/03/24 13:02 EDT\.br\Electronically Co-Signed By: Renetta Abdullahi LPN\.br\Date and Time Co-Signed: 05/03/24 09:30 EDT Family Medicine Office/Clinic Note HPI Staff Dariel is an 84 [...] is seeing cardiology and did not tell manager marketing or myself that he had been taking [...] Daily, # 90 tab(s), Refills(s) 0, Pharmacy: [facility], 178.2, cm, 02/02/24 10:29:00 EDT, Height/Length Dosing, 84.1, kg, 02/02/24 10:29:00 EDT, Weight Dosing sodium chloride, See Instructions, TAKE 1 TABLET BY MOUTH TWICE DAY, # 90 tab(s), Refills(s) 2, Pharmacy: [facility]/pharmacy #[id number], 180.5, cm, 03/20/24 15:05:00 EDT, Height/Length [...] 05/03/2024 Substance Abuse - Denies Substance Abuse, 03/06 (more content not included)... Normal [facility] Comment on above: Result Comment: Elec tronically Signed By: Adam COHN, Kylah Lopez.br\Date and Time Signed: 05/03/24 09:15 EDT Patient Educationon 05-03-20 Patient Education Caregiving Fall Prevention in the Home, Adult [...] night-lights. ? Place frequently used items in jjzx-wo-yhjdh places. Lower the shelves around your home [...] the way. ? Do not use floor bhutanese or wax that makes floors slippery. If [...] include working with a physical therapist or link trainer teacher to improve your strength, balance, and endurance. Where to find more information ? Centers for Disease Control and Prevention, [place]: www.cdc.gov ? National [place] on Aging: www.kieran.nih.gov Contact a health care [...] advice given to you by your health ca (more content not included)... Normal [facility] Patient Education Urology Erectile Dysfunction Erectile dysfunction (ED) is [...] these instructions at home: Medicines ? Take yuky-xav-pssirob and prescription medicines only as told by [...] contain nicotine or tobacco. These products include cig (more content not included)... Normal [facility] Screenson 05-03-2024 Screens [id number] 2#[id number] Normal [facility] CBC w/ Auto Diffon 4 Basophils/100 WBC (Bld) 0.9 % Normal 0.0-2.0 [facility] Comment on above: Performed By: #### 2 [id number] #### [facility] [address] [place] [address] Basophils/Leukocytes Auto (Bld) [Pure # fraction] 0.0 E9/L Normal 0.0-0.2 [facility] Comment on above: Performed By: #### 2 [id number] #### [facility] [address] [place] [address] Eosinophils (Bld) [#/Vol] 0.1 E9/L Normal 0.0-0.5 [facility] Comment on above: Performed By: #### 2 [id number] #### [facility] [address] [place] [address] Eosinophils/100 WBC (Bld) 2.4 % Normal 0.0-8.0 [facility] Comment on above: Performed By: #### 2 [id number] #### [facility] [address] [place] [address] Erythrocyte distribution width (RBC) [Ratio] 14.4 % High 10.9-14.2 [facility] Comment on above: Performed By: #### 2 [id number] #### [facility] [address] [place] [address] Hematocrit (Bld) [Volume fraction] 42.2 % Normal 37.7-49.0 [facility] Comment on above: Performed By: #### 2 [id number] #### [facility] [address] [place] [address] Hemoglobin (Bld) [Mass/Vol] 14.0 g/dL Normal 13.5-17.5 [facility] Comment on above: Performed By: #### 2 [id number] #### [facility] [address] [place] [address] Lymphocytes (Bld) [#/Vol] 1.4 E9/L Normal 1.0-4.0 [facility] Comment on above: Performed By: #### 2 [id number] #### [facility] [address] [place] [address] Lymphocytes/100 WBC (Bld) 34.0 % Normal 14.0-50.0 [facility] Comment on above: Performed By: #### 2 [id number] #### [facility] [address] [place] [address] MCH (RBC) [Entitic mass] 30.8 pg Normal 27.0-34.0 [facility] Comment on above: Performed By: #### 2 [id number] #### [facility] [address] [place] [address] MCHC (RBC) [Mass/Vol] 33.1 g/dL Normal 31.4-36.0 [facility] Comment on above: Performed By: #### 2 [id number] #### [facility] [address] [place] [address] MCV (RBC) [Entitic vol] 92.9 fL Normal 80.0-100.0 [facility] Comment on above: Performed By: #### 2 [id number] #### [facility] [address] [place] [address] Monocytes (Bld) [#/Vol] 0.4 E9/L Normal 0.2-1.0 [facility] Comment on above: Performed By: #### 2 [id number] #### [facility] [address] [place] [address] Neutrophils (Bld) [#/Vol] 2.2 E9/L Normal 2.0-7.5 [facility] Comment on above: Performed By: #### 2 [id number] #### [facility] [address] [place] [address] Neutrophils/100 WBC (Bld) 53.4 % Normal 36.0-75.0 [facility] Comment on above: Performed By: #### 2 [id number] #### [facility] [address] [place] [address] Platelet 166.0 E9/L Normal 150.0-500.0 [facility] Comment on above: Performed By: #### 2 [id number] #### [facility] [address] [place] [address] Platelet mean volume (Bld) [Entitic vol] 9.8 fL Normal 6.4-10.8 [facility] Comment on above: Performed By: #### 2 [id number] #### [facility] [address] [place] [address] RBC (Bld) [#/Vol] 4.5 E12/L Normal 4.3-5.9 [facility] Comment on above: Performed By: #### 2 [id number] #### [facility] [address] [place] [address] WBC corrected for nucl RBC Auto (Bld) [#/Vol] 4.2 E9/L Normal 4.0-11.0 [facility] Comment on above: Performed By: #### 2 [id number] #### [facility] [address] [place] [address] CHEMISTRYOrdered By: SYSTEM SYSTEM on 05-01-2024 Albumin [Mass/Vol] 4.2 g/dL Normal 3.3 - 5.0 gm/dL R emisol Chem Albumin/Globulin [Mass ratio] 1.4 {ratio} Normal 1.1 - 2.2 [facility] ALP [Catalytic activity/Vol] 83 [iU]/d Normal 21 - 98 Int._Unit/L [facility] ALT No additional P-5'-P [Catalytic activity/Vol] 14 [iU]/d Normal 6 - 46 Int._Unit/L [facility] Anion gap [Moles/Vol] 10 mmol/L Normal 6 - 16 mEq/L [facility] AST [Catalytic activity/Vol] 22 [iU]/d Normal 5 - 43 Int._Unit/L [facility] Bilirubin [Mass/Vol] 0.9 mg/dL Normal 0.0 - 1.1 mg/dL [facility] Calcium [Mass/Vol] 9.5 mg/dL Normal 8.9 - 11.1 mg/dL [facility] Chloride [Moles/Vol] 103 mmol/L Normal 101 - 111 mmol/ L [facility] Cholesterol [Mass/Vol] 168 mg/dL Normal 120 - 200 mg/dL [facility] Cholesterol in HDL [Mass/Vol] 54 mg/dL Invalid Interpretation Code [facility] Comment on above: Result Comment: '>= 60 LOW RISK' '<= 40 HIGH RISK' Cholesterol in LDL [Mass/Vol] 99 mg/dL Normal <=129mg/dL [facility] Cholesterol in VLDL [Mass/Vol] 16 mg/dL Normal 7 - 40 mg/dL [facility] CO2 [Moles/Vol] 29 mmol/L Normal 21 - 31 mmol/L Remis ol Chem Creatinine [Mass/Vol] 1.1 mg/dL Normal 0.5 - 1.3 mg/dL [facility] eGFR 67 mL/min/1.73 m2 Normal >=59mL/min /1.73 m2 [facility] Globulin (S) [Mass/Vol] 2.9 g/dL Normal 1.4 - 4.0 gm/dL [facility] Glucose [Mass/Vol] 104 mg/dL Normal 55 - 199 mg/dL Re misol Chem Potassium [Moles/Vol] 5.2 mmol/L Normal 3.5 - 5.3 mmol/L [facility] Prostate specific Ag [Mass/Vol] 1.3 ng/mL Normal 0.1 - 3.5 ng/mL [facility] Comment on above: Interpretive Data: T he concentration of PSA determined by different manufacturers can vary due to differences in assay methods and reagent specificity. Values obtained from different assay methods cannot be used interchangeably. The methodology used for this result was chemiluminescence using [employer] Access [employer] PSA reagent. Protein [Mass/Vol] 7.1 g/dL Normal 6.0 - 7.8 gm/dL R emisol Chem Sodium [Moles/Vol] 137 mmol/L Normal 135 - 145 mmol/L [facility] Triglyceride [Mass/Vol] 78 mg/dL Normal <=149mg/dL [facility] Urea nitrogen [Mass/Vol] 15 mg/dL Normal 5 - 21 mg/dL [facility] Urea nitrogen/Creatinine [Mass ratio] 14 mg/mg Normal 10 - 20 [facility] CMPon 05-01-2024 Albumin [Mass/Vol] 4.2 g/dL Normal 3.3-5.0 [facility] Comment on above: Performed By: #### 2 [id number] #### [facility] [address] [place] [address] Albumin/Globulin (S) [Mass conc ratio] 1.4 Normal 1.1-2.2 [facility] Comment on above: Performed By: #### 2 [id number] #### [facility] [address] [place] [address] ALP [Catalytic activity/Vol] 83 Int._Unit/L Normal 21-98 [facility] Comment on above: Performed By: #### 2 [id number] #### [facility] [address] [place] [address] ALT No additional P-5'-P [Catalytic activity/Vol] 14 Int._Unit/L Normal 6-46 [facility] Comment on above: Performed By: #### 2 [id number] #### [facility] [address] [place] [address] Anion gap [Moles/Vol] 10 mmol/L Normal 6-16 [facility] Comment on above: Performed By: #### 2 847060 #### [facility] [address] [place] [address] AST [Catalytic activity/Vol] 22 Int._Unit/L Normal 5-43 [facility] Comment on above: Performed By: #### 2 [id number] #### [facility] [address] [place] [address] Bilirubin [Mass/Vol] 0.9 mg/dL Normal 0.0-1.1 [facility] Comment on above: Performed By: #### 2 [id number] #### [facility] [address] [place] [address] Calcium [Mass/Vol] 9.5 mg/dL Normal 8.9-11.1 [facility] Comment on above: Performed By: #### 2 154658 #### [facility] [address] [place] [address] Chloride [Moles/Vol] 103 mmol/L Normal 101-111 [facility] Comment on above: Performed By: #### 2 582819 #### [facility] [address] [place] [address] CO2 [Moles/Vol] 29 mmol/L Normal 21-[address] [facility] Comment on above: Performed By: #### 2 740637 #### [facility] [address] [place] [address] Creatinine [Mass/Vol] 1.1 mg/dL Normal 0.5-1.3 [facility] Comment on above: Performed By: #### 2 624622 #### [facility] [address] [place] [address] Globulin (S) [Mass/Vol] 2.9 g/dL Normal 1.4-4.0 [facility] Comment on above: Performed By: #### 2 608003 #### [facility] [address] [place] [address] Glucose [Mass/Vol] 104 mg/dL Normal 55-199 [facility] Comment on above: Performed By: #### 2 975932 #### [facility] [address] [place] [address] Potassium [Moles/Vol] 5.2 mmol/L Normal 3.5-5.3 [facility] Comment on above: Performed By: #### 2 133570 #### [facility] [address] [place] [address] Protein [Mass/Vol] 7.1 g/dL Normal 6.0-7.8 [facility] Comment on above: Performed By: #### 2 282316 #### [facility] [address] [place] [address] Sodium [Moles/Vol] 137 mmol/L Normal 135-145 [facility] Comment on above: Performed By: #### 2 584874 #### [facility] [address] [place] [address] Urea nitrogen [Mass/Vol] 15 mg/dL Normal 5-21 [facility] Comment on above: Performed By: #### 2 624623 #### [facility] [address] [place] [address] Urea nitrogen/Creatinine [Mass ratio] 14 No Units Normal 10-20 [facility] Comment on above: Performed By: #### 2 073688 #### [facility] [address] [place] [address] Consent for Treatmenton 04-14 Consent for Treatment [id number] 72#1.00TIFF Normal [facility] HEMATOLOGYOrdered By: SYSTEM SYSTEM on 05-01-2024 Basophils/100 WBC (Bld) 0.9 % Normal 0.0 - 2.0 % [facility] Basophils/Leukocytes Auto (Bld) [Pure # fraction] 0.0 E9/L Normal 0.0 - 0.2 E9/L [facility] Eosinophils (Bld) [#/Vol] 0.1 E9/L Normal 0.0 - 0.5 E9/L [facility] Eosinophils/100 WBC (Bld) 2.4 % Normal 0.0 - 8.0 % [facility] Erythrocyte distribution width (RBC) [Ratio] 14.4 % High 10.9 - 14.2 % [facility] Hematocrit (Bld) [Volume fraction] 42.2 % Normal 37.7 - 49.0 % [facility] Hemoglobin (Bld) [Mass/Vol] 14.0 g/dL Normal 13.5 - 17.5 gm/dL [facility] Lymphocytes (Bld) [#/Vol] 1.4 E9/L Normal 1.0 - 4.0 E9/L [facility] Lymphocytes/100 WBC (Bld) 34.0 % Normal 14.0 - 50.0 % [facility] MCH (RBC) [Entitic mass] 30.8 pg Normal 27.0 - 34.0 pg [facility] MCHC (RBC) [Mass/Vol] 33.1 g/dL Normal 31.4 - 36.0 gm/dL [facility] MCV (RBC) [Entitic vol] 92.9 fL Normal 80.0 - 100.0 fL [facility] Monocytes (Bld) [#/Vol] 0.4 E9/L Normal 0.2 - 1.0 E9/L [facility] Monocytes/100 WBC (Bld) 9.3 % Normal 4.0 - 14.0 % [facility] Neutrophils (Bld) [#/Vol] 2.2 E9/L Normal 2.0 - 7.5 E9/L [facility] Neutrophils/100 WBC (Bld) 53.4 % Normal 36.0 - 75.0 % [facility] Platelet 166.0 E9/L Normal 150.0 - 500.0 E9/L [facility] Platelet mean volume (Bld) [Entitic vol] 9.8 fL Normal 6.4 - 10.8 fL [facility] RBC (Bld) [#/Vol] 4.5 E12/L Normal 4.3 - 5.9 E12/L Re misol Heme WBC corrected for nucl RBC Auto (Bld) [#/Vol] 4.2 E9/L Normal 4.0 - 11.0 E9/L [facility] Lab Reportson 05-01-2024 Lab Reports [id number] E#1.00TIFF Normal [facility] Lipid Panelon 05-01-2024 Cholesterol [Mass/Vol] 168 mg/dL Normal 120-200 [facility] Comment on above: Performed By: #### 2 [id number] #### [facility] [address] [place] [address] Cholesterol in HDL [Mass/Vol] 54 mg/dL Invalid Interpretation Code [facility] Comment on above: Result Comment: '>= 60 LOW RISK' '<= 40 HIGH RISK' Performed By: #### 2 880612 #### [facility] [address] [place] [address] Cholesterol in LDL [Mass/Vol] 99 mg/dL Normal <=129 [facility] Comment on above: Performed By: #### 2 [id number] #### [facility] [address] [place] [address] Cholesterol in VLDL [Mass/Vol] 16 mg/dL Normal 7-40 [facility] Comment on above: Performed By: #### 2 111200 #### [facility] [address] [place] [address] Triglyceride [Mass/Vol] 78 mg/dL Normal <=149 [facility] Comment on above: Performed By: #### 2 145643 #### [facility] [address] [place] [address] Nurse Consultation Noteon Nurse Consultation Note Reason for Visit Here for lab draw [...] influenza virus vaccine, inactivated 08/02/2014 Recorded Normal [facility] PSA Screen, Totalon 05-01-20 24 Prostate specific Ag [Mass/Vol] 1.3 ng/mL Normal 0.1-3.5 [facility] Comment on above: Result Comment: The concentration of PSA determined by different manufacturers can vary due to differences in assay methods and reagent specificity. Values obtained from different assay methods cannot be used interchangeably. The methodology used for this result was chemiluminescence using [employer]'s MMIT Hybritech PSA reagent. Performed By: #### 1 [id number] #### [facility] [address] [place] [address] eGFRon 05-01-2024 eGFR 67 mL/min/1.73 m2 Normal >=59 [facility] Comment on above: Order Comment: Order added by Discern Expert. Performed By: #### 1 [id number] ####[facility] [address] [place] [address] Physician Orderon 04-23-2024 Physician Order [id number] 859#1.00TIFF Normal [facility] Consent for Treatmenton Consent for Treatment [id number] #1.00TIFF Normal [facility] Heart and Vascular Office/Cl inic Noteon 04-20-2024 Heart and Vascular Office/Clinic Note Chief Complaint here to establish care History [...] bed. Second time, same thing happened around Mitra. Approximately a month ago, he had another syncopal spell which resulted in a mechanical fall. He reports no shortness of breath, chest pain, dizziness or lightheadedness, palpitations, PND or orthopnea. 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 with manager marketing, location unknown, however, has not been followed [...] distress Neck: Supple, noJVD nocarotid bruit Cardiovascular: irregularly-irregul ar rate and rhythm, no murmur normal peripheral [...] influenza virus vaccine, inactivated 08/02/2014 Recorded Normal [facility] Comment on above: Result Comment: Elec tronically Signed By: Ericka COHN, Kashif Perez.br\Date and Time Signed: 04/20/24 13:49 EDT Insurance Correspondenceon 0 04-20-2024 Insurance Correspondence [id number] 559#1.00TIFF Normal [facility] Consultation Noteon 04-10-20 Consultation Note [id number] 1#1.00TIFF Normal [facility] Postoperative Documentson Postoperative Documents [id number] 811#1.00TIFF [facility] Consultation Noteon 03-29-20 Consultation Note [id number] B4#1.00TIFF Normal [facility] Lab Reportson 03-29-2024 Lab Reports [id number] DF#1.00TIFF Normal [facility] RAD - MISCon 03-29-2024 RAD - MISC [id number] 19#1.00TIFF [facility] IntraOperative Documentson 0 03-28-2024 IntraOperative Documents [id number] 516#1.00TIFF [facility] Consent for Anesthesiaon Consent for Anesthesia [id number] 28#1.00TIFF [facility] Discharge Instructionson Discharge Instructions [id number] 47#1.00TIFF [facility] IntraOperative Documentson 0 03-27-2024 IntraOperative Documents [id number] 36#1.00TIFF [facility] Main OR Intraoperative Recor don 03-27-2024 Main OR Intraoperative Record IntraOp Document Type FT Summary Primary Physician: Axel Hernández DO Finalized Date/Time: 03/27/24 09:11:12 Pt. Name: DARIEL ZABALA.O.B./Sex: 1940 Male Med Rec #: [id number] Physician: Axel Hernández DO Financial #: [id number] Pt. Type: A Room/Bed: [facility] Admit/Disch: 03/26/24 09:11:44 - 03/26/24 14:30:00 Institution: Case Times FT Entry 1 Patient Times In Room 03/26/24 12:20:00 Out Room 03/26/24 12:53:00 Procedure Times Start 03/26/24 12:35:00 Stop 03/26/24 12:45:00 Anesthesia Times Start 03/26/24 12:20:00 Stop 03/26/24 12:53:00 Last Modified By: Ambrocio Borges 03/26/24 13:03:30 General Comments: 03/27/24 Chart opened for charge review per Chuck Zazueta RN. [place] Case Attendance FT Entry 1 Entry 2 Entry 3 Case Attendee Davie Driver DO, Michael T Sweene, Terry T Role Performed Anesthesiologist Surgeon - Primary Talent Development Director - Primary Workers Compensation Examiner Time In 03/26/24 12:20:00 03/26/24 12:20:00 03/26/24 12:20:00 Time Out 03/26/24 12:53:00 03/26/24 12:53:00 03/26/24 12:53:00 Procedure FINGER TRIGGER FINGER TRIGGER FINGER TRIGGER RELEASE(Right) RELEASE(Right) RELEASE(Right) Comments DR CARDONA SUPERVISING Last Modified By: Ambrocio Borges Terry T Sweene, Terry T 03/26/24 13:03:32 03/26/24 13:03:32 03/26/24 13:03:32 Entry 4 Entry 5 Entry 6 Case Attendee Shola STEEL, Chica Terrell, Marium Peña RN, Rich Nickerson Role Performed COLOR SEPARATION PHOTOGRAPHER/SA Scrub - Primary Staff - Other Time [...] Yes Time Out Davie Driver, Given Participants Axel Hernández DO, Sweene, Terry T, Chica Jolley CST, Chaput, Madison A Time Out Complete 03/26/24 [...] MIDDLE FINGER TRIGGER FINGER Last Modified By: Amrbocio Borges 03/26/24 12:36:29 Post-Care Text: The patient is free from signs and symptoms of infection Skin Assessment (Pre Procedure) FT Pre-Care Text: Implements protective measures to prevent skin/ tissue injury due to thermal or mechanical sources Evaluates for signs and symptoms of physical injury to skin and tissue Entry 1 Skin Integrity Intact, [place], Warm, and Skin Abnormality No Dry Outcomes Met? Yes Last Modified By: Ambrocio Borges 03/26/24 12:36:42 Post-Care Text: The patient is free from signs and symptoms of injury caused by extraneous objects Patient Positioning FT Pre-Care Text: Identifies physical alterations that require additional precautions for procedure-specific positioning, verifies presence of prosthetics or correctiv (more content not included)... Normal [facility] Operative Reporton Operative Report SURGERY DATE: 03/26/2024 ANALYTICS LEADER: Chica Jolley C.F.A. PREOPERATIVE DIAGNOSIS: Right little and middle finger trigger digits POSTOPERATIVE DIAGNOSIS: Right little and middle finger trigger digits OPERATION: Right little and middle finger trigger release ANESTHESIA: General ESTIMATED BLOOD LOSS: Zero SPECIMEN: None IMPLANTS: None COMPLICATIONS: None. TOURNIQUET TIME: See nurse's record HISTORY AND INDICATIONS: Aelxx is an 83-year-old male with progressive locking [...] Complete release was achieved. There was no hour-glass deformity. There was a moderate amount of [...] patient's condition satisfactory Deanna Weller Dictated: 03/26/2024 [id number] Transcribed: 03/26/2024 cc:Kylah Garcia M.D. [facility] Comment on above: Result Comment: Elec tronically Signed By: Axel Hernández DO\.br\Date and Time Signed: 03/27/24 07:40 EDT Preoperative Documentson Preoperative Documents [id number] 14#1.00TIFF Normal [facility] Progress Note-Physicianon Progress Note-Physician Patient: DARIEL ZABALA Age: 83 years Sex: Male : 1940 [...] as documented in history of present illness. Ear/Nose/Mouth/Thro at: Negative except as documented in history of [...] 2 causing vascular disease / SNOMED CT 335588304 / Confirmed Trigger finger / SNOMED CT 730962338 / Confirmed Syncope / SNOMED CT 761075288 / Confirmed Body mass index (BMI) of 25.0-25.9 in adult / SNOMED CT 9599553432 / Confirmed Osteoarthritis / SNOMED CT 2269223904 / Confirmed Encounter for surveillance of abnormal nevi / SNOMED CT 5981057690 / Confirmed Laceration of head / SNOMED CT 7301758202 / Confirmed Hyponatremia / SNOMED CT 529484227 / Confirmed Hyperlipidemia / SNOMED CT 66688102 / Confirmed Fall at home / SNOMED CT 59079507 / Confirmed ED (erectile dysfunction) / SNOMED CT 9197172077 / Confirmed Carpal tunnel syndrome, left / SNOMED CT 97620879 / Confirmed Afib / SNOMED CT 00671805 / Confirmed ASCVD (arteriosclerotic cardiovascular disease) / SNOMED CT 807102414 / Confirmed Histories Procedure history: Surgery, neck X 2 (853439793). Carpal tunnel release (629449044). Social History Social & Psychosocial Habits Alcohol 03/26/2024 Use: Current Frequency: 1-2 times per month Comment: maybe 3x/ month - 03/06/2024 08:23 - Deedee KHAN, Beranrda Craig Substance Abuse 03/26/2024 Risk Assessment: Denies Substance Abuse Tobacco 03/26/2024 Tobacco Use: Never (less than 100 in l Smokeless tobacco use: Never . Physical Examination Airway: Mallampati classification: II (soft palate, fauces, uvula visible). Respiratory: adequate air exchange. Cardiovascular: Regular rhythm. Plan [place] [employer]esthesiologists (ASA) physical status classification: Class III. Anesthetic Preoperative Plan: Anesthesia General. [facility] Comment on above: Result Comment: Elec tronically Signed By: Chau Cardona Jr, DO\.br\Date and Time Signed: 03/27/24 12:32 EDT Progress Note-Physician Patient: DARIEL ZABALA Age: 83 years Sex: Male : 1940 [...] when meets criteria ( To home ). [facility] Comment on above: Result Comment: Elec tronically Signed By: Chau Cardona Jr, DO\.claudio\Date and Time Signed: 03/27/24 12:32 EDT CHEMISTRYOrdered By: Sara RIVAS User on 03-26-2024 Glucose [Mass/Vol] 92 mg/dL Normal 55 - 99 mg/dL FT C POC Subsection Comment on above: Result Comment: Noti jose RN/ POC Device SN [id number] 1 Invalid Interpretation Code [facility] POC Subsection POC User ID [id number] 1 Invalid Interpretation Code [facility] POC Subsection POC Username LORNA WILSON Invalid Interpretation Code [facility] POC Subsection COAGULATIONOrdered By: Toshia Tadeo on 03-26-2024 aPTT Coag (PPP) [Time] 35.8 s Normal 25.1 - 36.5 second(s) [facility] Auto Coag Comment on above: Interpretive Data: P arameter 15 days - 4 weeks 1 - [...] the same coagulation reagent and instrumentation as [facility]. Currently there are no coagulation studies available worldwide for children to 14 days, and no normal ranges. Heparin therapeutic range (represented by Anti-Factor Xa activity of 0.2 - 0.4 U/mL) corresponds to PTT of 56.6 - 109.0 sec. PT Coag (PPP) [Time] 13.4 s High 9.4 - 1 2.5 second(s) [facility] Auto Coag Comment on above: Interpretive Data: 1 5 days - 4 weeks 1 - 5 months 6 -11 months 1 5 years 6 10 years 11 -17 years Mean: 11.2 (9.5 12.6) Mean: 11.0 (9.7 12.8) Mean: 11.0 (9.8 13.0) Mean: 11.3 (9.9 13.4) Mean: 11.7 (10.0 14.6) Mean: 11.8 (10.0 - 14.1) Pediatric Reference ranges were obtained from a study by Jose Gomez et al. prepared from 1437 samples obtained at 7 different centers using the same coagulation reagent and instrumentation as [facility]. Currently there are no coagulation studies available worldwide for children to 14 days, and no normal ranges. Capillary Glucose POCon 03-14 Glucose [Mass/Vol] 92 mg/dL Normal 55-99 [facility] Comment on above: Result Comment: Justine garcia RN/ Performed By: #### 2 [id number] #### [facility] [address] [place] [address] Consent for Procedure/Surger yon 03-26-2024 Consent for Procedure/Surgery [id number] 421#1.00TIFF Normal [facility] Consent for Treatmenton 03-14 Consent for Treatment [id number] E9#1.00TIFF Normal [facility] Discharge Instructionson Discharge Instructions DARIEL ZABALA :1940 Visit Date:03/26/2024 Inpatient Discharge Instructions Your Care Team Admitting Physician - Axel Hernández DO Referring Physician - Axel Hernández DO Reason for Your Visit RIGHT LITTLE FINGER TRIGGER FINGER Your Diagnosis Trigger finger, right little finger This Is Your Medications List Turmeric (Turmeric 500 mg oral capsule) acetaminophen-hydro codone (Mulberry 325 mg-5 mg oral tablet) atenolol (atenolol [...] AM EDT Comments: Keep scheduled appointment Where: [address] [place], [place] [id number]- [employer] (1) Medications What How Much When Why Instructions Next Dose Unchanged acetaminophen-hydro codone (Mulberry 325 mg-5 mg oral tablet) See instructions Trigger finger, right little finger 1 tab(s) Oral q4hr PRN Pain. Duration 7 days. Pickup at [facility]/pharmacy #[id number] Unchanged atenolol (atenolol 25 mg Tab) 1 [...] Tablets By Mouth Every day Pharmacy Information [facility]/pharmacy #[id number]: [address], [place] [id number] [phone] Problems Ongoing - Any problem that you [...] cases may clear up with rest and med (more content not included)... Normal [facility] Comment on above: Result Comment: Elec tronically Signed By: Sloan KHAN, Rudy Pereira\.claudio\Date and Time Signed: 03/26/24 14:03 EDT H&P Updateon 03-26-2024 H&P Update [id number] 633#1.00TIFF Normal [facility] Main OR PACU I Recordon 03-14 Main OR PACU I Record PACU Phase I Document Type FT Summary Primary Physician: Axel Hernández DO Finalized Date/Time: 03/26/24 13:38:42 Pt. Name: VJDARIEL/Sex: 1940 Male Med Rec #: [id number] Physician: Axel Hernández DO Financial #: [id number] Pt. Type: A Room/Bed: [facility] Admit/Disch: 03/26/24 09:11:44 - Institution: Case Times [...] I Outcomes Met? Yes Last Modified By: Navdeep KHAN, Vicki Craig 03/26/24 13:38:31 Post-Care Text: The patient demonstrates [...] Signed By: Vicki Sethi RN 03/26/24 13:38 Normal [facility] Main OR PACU II Recordon Main OR PACU II Record PACU Phase II Document Type FT Summary Primary Physician: Axel Hernández DO Finalized Date/Time: 03/26/24 16:11:30 Pt. Name: CLIFFORDKassiDARIEL/Sex: 1940 Male Med Rec #: [id number] Physician: Axel Hernández DO Financial #: [id number] Pt. Type: A Room/Bed: [place] [address] Admit/Disch: 03/26/24 09:11:44 - 03/26/24 14:30:00 Institution: [...] Signed By: Rudy Lisa RN 03/26/24 16:11 Normal [facility] Main OR Preoperative Recordo n 03-26-2024 Main OR Preoperative Record PreOp Document Type FT Summary Primary Physician: Axel Hernández DO Finalized Date/Time: 03/26/24 13:07:41 Pt. Name: DARIEL ZABALA/Sex: 1940 Male Med Rec #: [id number] Physician: Axel Hernández DO Financial #: [id number] Pt. Type: Room/Bed: [place] [address] Admit/Disch: 03/26/24 09:11:44 - Institution: Case Times [...] Borges 03/26/24 13:05 Ambrocio Borges 03/26/24 13:07 Normal [facility] Monitor Recordon 03-26-2024 Monitor Record [id number] 220#1.00TIFF Normal [facility] Monitor Record [id number] 270#1.00TIFF Normal [facility] PT & PTTon 03-26-2024 aPTT Coag (PPP) [Time] 35.8 second(s) Normal 25.1-36.5 [facility] Comment on above: Result Comment: Para meter 15 days - 4 weeks 1 - [...] the same coagulation reagent and instrumentation as [facility]. Currently there are no coagulation studies available worldwide for children to 14 days, and no normal ranges. Heparin therapeutic range (represented by Anti-Factor Xa activity of 0.2 - 0.4 U/mL) corresponds to PTT of 56.6 - 109.0 sec. Performed By: #### 1 [id number] ####[facility] [address] [place] [address] PT Coag (PPP) [Time] 13.4 second(s) High 9.4-12.5 [facility] Comment on above: Result Comment: 15 d ays - 4 weeks 1 - 5 months [...] the same coagulation reagent and instrumentation as [facility]. Currently there are no coagulation studies available worldwide for children to 14 days, and no normal ranges. Performed By: #### 1 [id number] ####[facility] [address] [place] [address] PT & PTTOrdered By: Starr linda on 03-26-2024 INR Coag (PPP) [Relative time] 1.19 {INR} Invalid Interpretation Code [facility] Auto Coag Comment on above: Interpretive Data: I NR results are specifically intended to assess patients stabilized on long-term Anticoagulation therapy suggested INR s Less Intensive Anticoagulation 2.0 3.0 Conventional Range 3.0 4.5 Result Comment: INR results are specifically intended to assess patients stabilized on long-term Anticoagulation therapy suggested INR?s ?Less Intensive Anticoagulation? 2.0 ? 3.0 Conventional Range 3.0 ? 4.5 Performed By: #### 1 [id number] ####[facility] [address] [place] [address] Patient Education - Texton 0 03-26-2024 Patient Education - Text Orthopedics Trigger Finger Trigger finger, also called [...] ? Doing activities that require a strong perfect binder operator. ? Having rheumatoid arthritis, gout, or [...] on your hand. General instructions ? Take qzyo-cog-cjcycng and prescription medicines only as told by [...] questions you have with your health care provide (more content not included)... Normal [facility] Ambulatory Visit Summaryon 0 03-20-2024 Ambulatory Visit Summary DARIEL ZABALA :1940 Visit Date:03/20/2024 Ambulatory Visit Instructions Your Diagnosis Afib Fall at home Laceration of head Syncope Hyponatremia Over weight BMI 25.0-25.9,adult Your Care Team Attending Physician - Kylah Garcia MD. Primary Care Physician - Kylah Garcia MD. This Is Your Medications List Turmeric (Turmeric [...] to do next Scheduled Follow-Up Appointments Tuesday 12:30 PM EDT With: Where: [facility] Tuesday 9:00 AM EDT With: Where: [facility] Invalid Interpretation Code [address] [place] [address]- \.br\ 2023 9:00 AM EDT \.br\ With: Adam COHN, Kylah Cole\.br\ Where: [facility] Consent for Procedure/Surger yon 03-20-2024 Consent for Procedure/Surgery [id number] 969#1.00TIFF Normal [facility] Family Medicine Office/Clini c Noteon 03-20-2024 Family Medicine Office/Clinic Note HPI Staff Dariel is an 83 year old male presenting for ER follow up needs his andre removed ER followup: Hospital: [place] Visit date: 03/10/24 Symptoms the patient presented [...] - Hold coumadin tomorow for surgery Ordered: [facility] Internal Ambulatory Referral 2. Fall at home (W19.XXXA: Unspecified fall, initial encounter) - 2/2 syncope - Nausea before syncope - Will refer to Cardio for evaluation of continues syncope Ordered: [facility] Internal Ambulatory Referral 3. Laceration of head (S01.91XA: Laceration without foreign body of unspecified part of head, initial encounter) - Stables removed - no issues. Ordered: [facility] Internal Ambulatory Referral 4. Syncope (R55: Syncope and collapse) - Will send to Cardio for further work up Ordered: [facility] Internal Ambulatory Referral 5. Hyponatremia (E87.1: Hypo-osmolality and hyponatremia) - Recheck BMP today - Follow up with Nephrology Ordered: [facility] Internal Ambulatory Referral 6. Over weight (E66.3: [...] influenza virus vaccine, inactivated 08/02/2014 Recorded Normal [facility] Comment on above: Result Comment: Elec tronically Signed By: Adam COHN, Kylah Lopez.br\Date and Time Signed: 03/20/24 15:31 EDT Inpatient Patient Summaryon 03-20-2024 Inpatient Patient Summary [facility] [address], [place] [address] [facility] Clinical Discharge Instructions PERSON INFORMATION Name: DARIEL ZABALA [facility]#:[id number] PHYSICIANS Admitting Physician: Axel Hernández DO Attending Physician: Axel Hernández DO PCP: Kylah Garcia MD Discharge Diagnosis: Trigger finger, right little finger Comment: PATIENT EDUCATION INFORMATION Instructions: Trigger Finger Medication Leaflets: Follow up: With: Address: When: Axel Hernández [address] [place] [address] [employer] Comments: Keep scheduled appointment Type Location Start [facility] Surgical Services 03/26/2024 12:30 PM 03/26/2024 12:45 PM Confirmed [facility]/01/2024 9:00 AM 05/01/2024 9:20 AM Confirmed FM Medicare Wellness Subsequent [facility] 05/03/2024 8:00 AM 05/03/2024 9:00 AM Confirmed FM Open [facility] 05/03/2024 9:00 AM 05/03/2024 9:15 AM Confirmed [...] 500 mg oral capsule) ubiquinone (CoQ10) Comment: Normal [facility] Outpatient Surgery Discharge Instructionon 03-20-2024 Outpatient Surgery Discharge Instruction [address] [address] Patient Discharge Instructions PERSON INFORMATION Name: DARIEL ZABALA Date of : 1940 Current Date: 03/20/2024 17:16:59 PHYSICIANS Admitting Physician: Axel Hernández DO Discharge Diagnosis: Trigger finger, right little finger DARIEL ZABALA has been given the following list of [...] THE NEAREST EMERGENCY ROOM OR CALL 911 VJ Bansal JOSEPH, have received the attached patient education materials/instructi ons and have verbalized understanding: May we do a follow up call? Yes No I was present when discharge instructions were given Patient Signature Date Clinican/Nurse Signature Date Follow up: With: Address: When: Axel Hernández [address] [place], [place] [id number] [facility] (1) Comments: Keep scheduled appointment Type Location [facility] 03/26/2024 12:30 PM 03/26/2024 12:45 PM Confirmed FM Lab Draw [facility] 05/01/2024 9:00 AM 05/01/2024 9:20 AM Confirmed FM Medicare Wellness Subsequent [facility] 05/03/2024 8:00 AM 05/03/2024 9:00 AM Confirmed FM Open [facility] 05/03/2024 9:00 AM 05/03/2024 9:15 AM Confirmed Pharmacy Information: You may receive a survey from Nahum Saldivar asking you to rate your care experience. Your feedback is important and will help us understand what we do well and how we can improve the quality of care we provide to you, your loved ones and our community. It?s an honor to serve you. Thank you for choosing [facility] HERE ARE THE MEDICATION CHANGES THAT [...] difficult to move your finger. Trigger finger ca (more content not included)... Normal [facility] ECG 12-Leadon 03-12-2024 ECG 12-Lead [id number] EC#1.00TIFF Normal [facility] ED Note-Physicianon 03-12-20 24 ED Note-Physician [id number] A7#1.00TIFF Normal [facility] RAD - CT Reporton 03-12-2024 RAD - CT Report [id number] 20#1.00TIFF Normal [facility] RAD - CT Report [id number] A4#1.00TIFF Normal [facility] RAD - MISCon 03-12-2024 RAD - MISC [id number] 55#1.00TIFF Normal [facility] Ambulatory Visit Summaryon 0 03-08-2024 Ambulatory Visit Summary DARIEL ZABALA :1940 Visit Date:03/08/2024 Ambulatory Visit Instructions Your [...] Appointments Tuesday 1:45 PM EDT With: Where: [facility] Surgical Services Tuesday 9:00 AM EDT With: Where: [facility] Invalid Interpretation Code [address] [place] [address]- \.br\ 2023 9:00 AM EDT \.br\ With: Adam COHN, Kylah Cole\.br\ Where: [facility] Medicine Office/Clini c Noteon 03-08-2024 Family Medicine Office/Clinic Note HPI Staff Dariel is an 83 year old male presenting for surgical clearance Needs clearance and hold coumadin in writing and faxed to Dr Hernández at [phone] Note: he would really benefit for chronic care management if he qualifies ( he walks in here at least once a week with questions Date of surgery: March 26, 2024 Surgeon: Dr Hernández Hospital: [facility] Type of Surgery: rt little finger trigger [...] disorder) - Will send to Derm. Ordered: [facility] External Ambulatory Referral Follow-up No qualifying data [...] influenza virus vaccine, inactivated 08/02/2014 Recorded Normal [facility] Comment on above: Result Comment: Elec tronically Signed By: Adam COHN, Kylah Cole\.br\Date and Time Signed: 03/08/24 13:31 EDT Patient [...] numbers. This can be done either in [place] or metric measurements. Note that charts and online BMI calculators are available to help you find your BMI quickly and easily without having to do these calculations yourself. To calculate your BMI in [place] ([place] measurements: 1. Measure your weight in [...] for Disease Control and Prevention: www.cdc.gov ? [place] Heart Association: www.heart.org ? National Heart, Lung, and Blood [place]: www.nhlbi.nih.gov Summary ? Body mass index (BMI) is a number that is calculated from a person's weight and height. ? BMI may help estimate how much of a person's weight is composed of fat. BMI can help identify those who may be at higher risk for certain medical problems. ? BMI can be measured using [place] measurements or metric measurements. ? BMI charts are used to identify whether you are underweight, normal weight, overweight, or obese. This information is not intended to replace advice given to you by your health care provider. Make sure you discuss any questions you have with your health care provider. Document Revised: 07/23/2020 Document Reviewed: 05/30/2020 [employer] Patient Education ? 2022 [employer]. Normal [facility] Physician Referralon 024 Physician Referral [id number] 859#1.00TIFF Normal [facility] XR Chest 2 Viewson 4 XR Chest 2 Views Exam Date/Time: 03/06/2024 [...] Cardona FINAL REPORT Dictated: 03/07/2024 7:26 am Carol Briseno, Vinicius Nickerson Signed (Electronic Signature): 03/07/2024 7:26 am Signed by: Vinicius Medina M.D. Transcribed by: FRANCESCO Technologist: CHRISTIE Technical Comments Radiation Dose: Ka,r in mGy = na DAP = na Normal [facility] BMPon 03-06-2024 Anion gap [Moles/Vol] 10 mmol/L Normal 6-16 [facility] Comment on above: Performed By: #### 1 [id number], 2407844, 1382760 ####[facility] [address] [place] [address] Calcium [Mass/Vol] 9.1 mg/dL Normal 8.9-11.1 [facility] Comment on above: Performed By: #### 1 7854717, 4161727, 8832452 ####[facility] [address] [place] [address] Chloride [Moles/Vol] 102 mmol/L Normal 101-111 [facility] Comment on above: Performed By: #### 1 2302157, 1305618, 5607920 ####[facility] [address] [place] [address] CO2 [Moles/Vol] 28 mmol/L Normal 21-[address] [facility] Comment on above: Performed By: #### 1 7507983, 0393478, 9029838 ####[facility] [address] [place] [address] Creatinine [Mass/Vol] 1.0 mg/dL Normal 0.5-1.3 [facility] Comment on above: Performed By: #### 1 3325589, 0428299, 6088042 ####[facility] [address] [place] [address] Glucose [Mass/Vol] 98 mg/dL Normal 55-199 [facility] Comment on above: Performed By: #### 1 4595743, 1141530, 9550465 ####[facility] [address] [place] [address] Potassium [Moles/Vol] 4.3 mmol/L Normal 3.5-5.3 [facility] Comment on above: Performed By: #### 1 0574785, 7937007, 6158983 ####[facility] [address] [place] [address] Sodium [Moles/Vol] 136 mmol/L Normal 135-145 [facility] Comment on above: Performed By: #### 1 7152248, 0490206, 5358270 ####[facility] [address] [place] [address] Urea nitrogen [Mass/Vol] 14 mg/dL Normal 5-21 [facility] Comment on above: Performed By: #### 1 3292660, 5447992, 0488989 ####[address] [address] Urea nitrogen/Creatinine [Mass ratio] 14 No Units Normal 10-20 [facility] Comment on above: Performed By: #### 1 5567965, 1504479, 9915899 ####[address] [address] CBC w/ Auto Diffon 4 Basophils/100 WBC (Bld) 1.0 % Normal 0.0-2.0 [facility] Comment on above: Performed By: #### 1 8908922, 2446669, 1006531 ####[address] [address] Basophils/Leukocytes Auto (Bld) [Pure # fraction] 0.0 E9/L Normal 0.0-0.2 [facility] Comment on above: Performed By: #### 1 0867554, 3716248, 0499170 ####[address] [address] Eosinophils (Bld) [#/Vol] 0.2 E9/L Normal 0.0-0.5 [facility] Comment on above: Performed By: #### 1 5475311, 2500919, 6928287 ####[address] [address] Eosinophils/100 WBC (Bld) 3.9 % Normal 0.0-8.0 [facility] Comment on above: Performed By: #### 1 9337523, 1315860, 9941597 ####[address] [place] [address] Erythrocyte distribution width (RBC) [Ratio] 14.0 % Normal 10.9-14.2 [facility] Comment on above: Performed By: #### 1 6303484, 3939174, 2319513 ####[address] [address] Hematocrit (Bld) [Volume fraction] 39.1 % Normal 37.7-49.0 [facility] Comment on above: Performed By: #### 1 2579765, 1994033, 8804476 ####[address] [address] Hemoglobin (Bld) [Mass/Vol] 13.0 g/dL Low 13.5-17.5 [facility] Comment on above: Performed By: #### 1 3500905, 6620761, 0459454 ####[address] [address] Lymphocytes (Bld) [#/Vol] 1.4 E9/L Normal 1.0-4.0 [facility] Comment on above: Performed By: #### 1 0301191, 0893457, 6307415 ####[address] [address] Lymphocytes/100 WBC (Bld) 31.0 % Normal 14.0-50.0 [facility] Comment on above: Performed By: #### 1 7228066, 8417141, 6380686 ####[address] [address] MCH (RBC) [Entitic mass] 30.3 pg Normal 27.0-34.0 [facility] Comment on above: Performed By: #### 1 7533939, 9340322, 3702582 ####[address] [address] MCHC (RBC) [Mass/Vol] 33.3 g/dL Normal 31.4-36.0 [facility] Comment on above: Performed By: #### 1 6172513, 5070012, 2322350 ####[address] [address] MCV (RBC) [Entitic vol] 91.2 fL Normal 80.0-100.0 [facility] Comment on above: Performed By: #### 1 2508384, 1821971, 2758378 ####[address] [address] Monocytes (Bld) [#/Vol] 0.4 E9/L Normal 0.2-1.0 [facility] Comment on above: Performed By: #### 1 1972502, 8043365, 1211823 ####[address] [address] Neutrophils (Bld) [#/Vol] 2.5 E9/L Normal 2.0-7.5 [facility] Comment on above: Performed By: #### 1 1798873, 9174195, 2621007 ####[address] [address] Neutrophils/100 WBC (Bld) 55.3 % Normal 36.0-75.0 [facility] Comment on above: Performed By: #### 1 1586620, 2539215, 8692845 ####[address] [address] Platelet 157.0 E9/L Normal 150.0-500.0 [facility] Comment on above: Performed By: #### 1 5090974, 9375970, 6296626 ####[address] [address] Platelet mean volume (Bld) [Entitic vol] 9.7 fL Normal 6.4-10.8 [facility] Comment on above: Performed By: #### 1 5747720, 0239649, 8387571 ####[address] [address] RBC (Bld) [#/Vol] 4.3 E12/L Normal 4.3-5.9 [facility] Comment on above: Performed By: #### 1 9451000, 3725000, 6913558 ####[facility] [address] [place] [address] WBC corrected for nucl RBC Auto (Bld) [#/Vol] 4.6 E9/L Normal 4.0-11.0 [facility] Comment on above: Performed By: #### 1 5675285, 4965034, 4781865 ####[facility] [address] [place] [address] CHEMISTRYOrdered By: SYSTEM SYSTEM on 03-06-2024 Anion gap [Moles/Vol] 10 mmol/L Normal 6 - 16 mEq/L Remisol Chem Calcium [Mass/Vol] 9.1 mg/dL Normal 8.9 - 11.1 mg/dL Remisol Chem Chloride [Moles/Vol] 102 mmol/L Normal 101 - 111 mmol/ L Remisol Chem CO2 [Moles/Vol] 28 mmol/L Normal 21 - 31 mmol/L Remis ol Chem Creatinine [Mass/Vol] 1.0 mg/dL Normal 0.5 - 1.3 mg/dL Remisol Chem eGFR 75 mL/min/1.73 m2 Normal >=59mL/min /1.73 m2 Remisol Chem Glucose [Mass/Vol] 98 mg/dL Normal 55 - 199 mg/dL Re misol Chem Potassium [Moles/Vol] 4.3 mmol/L Normal 3.5 - 5.3 mmol/L Remisol Chem Sodium [Moles/Vol] 136 mmol/L Normal 135 - 145 mmol/L Remisol Chem Urea nitrogen [Mass/Vol] 14 mg/dL Normal 5 - 21 mg/dL Remisol Chem Urea nitrogen/Creatinine [Mass ratio] 14 mg/mg Normal 10 - 20 Remisol Chem Consent for Treatmenton 02-13 Consent for Treatment [id number] B4#1.00TIFF Normal [facility] HEMATOLOGYOrdered By: SYSTEM SYSTEM on 03-06-2024 [...] 4.3 E12/L Normal 4.3 - 5.9 E12/L Re misol Heme WBC corrected for nucl RBC Auto (Bld) [#/Vol] 4.6 E9/L Normal 4.0 - 11.0 E9/L Remisol Heme eGFRon 03-06-2024 eGFR 75 mL/min/1.73 m2 Normal >=59 [facility] Comment on above: Order Comment: Order added by Discern Expert. Performed By: #### 1 1305151, 4434244, 3366680 ####[facility] [address] [place] [address] Consultation Noteon 03-01-20 Consultation Note [id number] 5E#1.00TIFF Normal [facility] Lab Reportson 02-27-2024 Lab Reports [id number] E7#1.00TIFF Normal [facility] Family Medicine Office/Clini c Noteon 02-07-2024 Family Medicine Office/Clinic Note HPI Staff Dariel is an 83 year old male presenting for 2 month follow up DM Needs refills of levothyroxine and glimiperide to [facility] Do you have any of the following symptoms? Foot Exam: none Eye Exam: due Last A1C: Hgb A1C %: 5.6 % (12/01/23 14:31:00) Statin: pravastatin 40mg questions/concerns: saw kidney specialist (Rashad) about 3 weeks ago ( no report in file) was told to stop the omeprazole and meloxicam and cut salt tablets from tid to bid. Also says [facility] sent him a letter and said you wouldn't let him have the sildenafil and he'd like to know why he can't have it Says he can't sleep on his left side, whole arm/shoulder hurts and goes numb, told years and years ago needs carpal tunnel surgery on left, (right side was done) History of Present Illness Dariel Zabala is an 83-year-old male who presents for medication refill. The patient needs a refill for sildenafil. He also reports numbness of his left hand and fingers, which is prohibiting him from sleeping on his left side. 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 His omeprazole and meloxicam were [...] cardiovascular disease) (I25.10: Atherosclerotic heart disease of [place] coronary artery without angina pectoris) He has no issues today. He has no chest pain. He will continue on the beta-dimitris and the pravastatin. 3. Afib (I48.91: Unspecified [...] with voice recognition artificial intelligence software, specifically [employer], [employer] and or [employer]. Substitutions may have occurred due to the inherent limitations of voice recognition and artificial intelligence software. ATTESTATION: Documentation services were performed after patient or guardian consented to allow Project Manager to record this visit. MELISSA metalworking specialist and provider reviewed before signing. MELISSA: [...] in life (more content not included)... Normal [facility] Comment on above: Result Comment: Elec tronically Signed By: Kylah Garcia MD\.br\Date and Time Signed: 02/07/24 12:44 EDT\.br\Electronically Co-Signed By: Allie Cownay\.br\Date and Time Co-Signed: 02/02/24 11:43 EDT Ambulatory Visit Summaryon 0 02-02-2024 Ambulatory Visit Summary DARIEL ZABALA :1940 Visit Date:02/02/2024 Ambulatory Visit Instructions Your [...] Appointments Tuesday 9:00 AM EDT With: Where: [facility] Invalid Interpretation Code [address] [place] [address]- \.br\ 2023 9:00 AM EDT \.br\ With: Kylah Garcia MD\.br\ Where: [facility] Physician Referralon 024 Physician Referral [id number] 6#1.00TIFF Normal [facility] Lab Reportson 01-05-2024 Lab Reports [id number] C1#1.00TIFF [facility] Transfer Inon 12-08-2023 Transfer In [id number] F9#1.00TIFF [facility] Auth for Release of Medical Recordson 12-06-2023 Auth for Release of Medical Records [id number] E#1.00TIFF [facility] Family Medicine Office/Clini c Noteon 12-02-2023 Family Medicine Office/Clinic Note HPI Staff Dariel is an 83 year old male presenting to [facility] Establish Care: History: a fib, DM type [...] a day History of Present Illness Dariel Zabala is an 83-year-old male who presents today to [facility]. He is accompanied by his . The [...] records from Dr. Jada Rene. 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 He and his family relocated from [place] to [place] 7 months ago, but they originally grew up in [place]. Review of Systems PHQ Score Initial Depression [...] cardiovascular disease) (I25.10: Atherosclerotic heart disease of [place] coronary artery without angina pectoris) He will [...] with voice recognition artificial intelligence software, specifically [employer], [employer] and or [employer]. Substitutions may have occurred due to the inherent limitations of voice recognition and artificial intelligence software. Documentation services were performed after patient or guardian consented to allow [employer] to record this visit. MELISSA metalworking specialist and provider reviewed before signing. MELISSA: [...] Oral, Horace (more content not included)... Normal [facility] Comment on above: Result Comment: Elec tronically Signed By: Kylah Garcia MD\.br\Date and Time Signed: 12/02/23 08:22 EST\.br\Electronically Co-Signed By: Allie Conway\.br\Date and Time Co-Signed: 12/01/23 17:49 EST Lab Reportson 12-02-2023 Lab Reports [id number] 1#1.00TIFF [facility] Ambulatory Visit Summaryon 0 12-01-2023 Ambulatory Visit Summary DARIEL ZABALA :1940 Visit Date:12/01/2023 Ambulatory Visit Instructions Your [...] for choosing us for your care. Normal [facility] CBC w/ Auto Diffon 4 NRBC Man 0 Normal 0-0 [facility] Comment on above: Performed By: #### 2 195954, 3346307, 37607157, 9491625, [id number] #### [facility] [address] [place] [address] Basophil Absolute 0.0 E9/L Normal 0.0-0.2 [facility] Comment on above: Performed By: #### 2 885859, 9896803, 37537724, 1783263, 298194827 #### [facility] [address] [place] [address] Basophils/100 WBC (Bld) 0.4 % Normal 0.0-2.0 [facility] Comment on above: Performed By: #### 2 706427, 6144762, 27641591, 7954449, 026114709 #### [facility] [address] [place] [address] Eos Absolute 0.2 E9/L Normal 0.0-0.5 [facility] Comment on above: Performed By: #### 2 008484, 6044797, 51948460, 2984696, 624855780 #### [facility] [address] [place] [address] Eosinophils/100 WBC (Bld) 2.9 % Normal 0.0-8.0 [facility] Comment on above: Performed By: #### 2 634674, 3903261, 07293298, 8576521, 377026018 #### [facility] [address] [place] [address] Erythrocyte distribution width (RBC) [Ratio] 14.0 % Normal 10.9-14.2 [facility] Comment on above: Performed By: #### 2 336869, 8065860, 08219119, 4354486, 182967150 #### [facility] [address] [place] [address] Hematocrit (Bld) [Volume fraction] 37.0 % Low 37.7-49.0 [facility] Comment on above: Performed By: #### 2 598453, 1852438, 50843527, 5866824, 427089001 #### [facility] [address] [place], [place] [address] Hemoglobin (Bld) [Mass/Vol] 12.1 g/dL Low 13.5-17.5 [facility] Comment on above: Performed By: #### 2 907060, 4745911, 82927231, 0014800, 617993962 #### [facility] [address] [place], [place] [address] Lymph Absolute 1.8 E9/L Normal 1.0-4.0 [facility] Comment on above: Performed By: #### 2 878301, 5277012, 14885973, 1421824, 016050261 #### [facility] [address] [place], [place] [address] Lymphocytes/100 WBC (Bld) 29.3 % Normal 14.0-50.0 [facility] Comment on above: Performed By: #### 2 356051, 3671389, 47785855, 0171407, 740858265 #### [facility] [address] [place] [address] MCH (RBC) [Entitic mass] 30.8 pg Normal 27.0-34.0 [facility] Comment on above: Performed By: #### 2 854227, 7104175, 41950077, 7905572, 617144732 #### [facility] [address] [place] [address] MCHC (RBC) [Mass/Vol] 32.8 g/dL Normal 31.4-36.0 [facility] Comment on above: Performed By: #### 2 686217, 0256036, 00323357, 5990445, 712922395 #### [facility] [address] [place] [address] MCV (RBC) [Entitic vol] 93.8 fL Normal 80.0-100.0 [facility] Comment on above: Performed By: #### 2 159207, 7394966, 56624227, 3131320, 946811589 #### [facility] [address] [place] [address] [place] Absolute 0.5 E9/L Normal 0.2-1.0 [facility] Comment on above: Performed By: #### 2 652110, 2458829, 44495963, 6175017, 989937309 #### [facility] [address] [place] [address] Monocytes/100 WBC (Bld) 7.9 % Normal 4.0-14.0 [facility] Comment on above: Performed By: #### 2 525947, 6648014, 82899331, 2982571, 621611045 #### [facility] Laboratory [address] [place] [address] Neutro Absolute 3.6 E9/L Normal 2.0-7.[address] [facility] Comment on above: Performed By: #### 2 281816, 5419764, 36903230, 2461257, [id number] #### [facility] Laboratory [address] [place] [address] Neutro Auto 59.5 % Normal 36.0-75.0 [facility] Comment on above: Performed By: #### 2 917531, 5337268, 85766430, 4952687, [id number] #### [facility] Laboratory [address] [place] [address] Platelet 198.0 E9/L Normal 150.0-500.0 [facility] Comment on above: Performed By: #### 2 387154, 9064592, 12207381, 9033498, [id number] #### [facility] Laboratory [address] [place] [address] Platelet mean volume (Bld) [Entitic vol] 9.5 fL Normal 6.4-10.8 [facility] Comment on above: Performed By: #### 2 630419, 6979969, 65243808, 1425979, [id number] #### [facility] Laboratory [address] [id number] RBC 3.9 E12/L Low 4.3-5.9 [facility] Comment on above: Performed By: #### 2 609849, 2871425, 83793566, 1589701, [id number] #### [facility] Laboratory [address] [id number] WBC 6.0 E9/L Normal 4.0-11.0 [facility] Comment on above: Performed By: #### 2 343825, 8598119, 19437368, 5838155, [id number] #### [facility] Laboratory [address] [place] [address] CHEMISTRYOrdered By: Kate Sotomayor on 12-01-2023 U Creatinine 62.5 mg/dL Invalid Interpretation Code Remisol Chem U Prot/Creat Ratio NOT CALCULATED Invalid Interpretation Code 0.00 - 200.00 Remisol Chem Ur Total Protein mg/dL Invalid Interpretation Code Remisol Chem CHEMISTRYOrdered By: SYSTEM SYSTEM on 12-01-2023 U Microalb microgram/mL Normal 0.0 - 19.0 mcg/mL Remis ol Chem Albumin [Mass/Vol] 3.9 g/dL Normal 3.3 - 5.0 gm/dL R emisol Chem Albumin/Globulin [Mass ratio] 1.6 {ratio} Normal 1.1 - 2.2 Remisol Chem Alk Phos 75 [iU]/d Normal 21 - 98 Int._Unit/L Remisol Chem ALT 12 [iU]/d Normal 6 - 46 Int._Unit/L Remisol Chem Anion gap [Moles/Vol] 9 mmol/L Normal 6 - 16 mEq/L Remisol Chem AST 20 [iU]/d Normal 5 - 43 Int._Unit/L Remisol Chem Bili Total 0.9 mg/dL Normal 0.0 - 1.1 mg/dL Remisol C hem Calcium [Mass/Vol] 8.7 mg/dL Low 8.9 - 11.1 mg/dL Remisol Chem Chloride [Moles/Vol] 104 mmol/L Normal 101 - 111 mmol/ L Remisol Chem Cholesterol [Mass/Vol] 156 mg/dL Normal [...] 30 mmol/L Normal 21 - 31 mmol/L Remis ol Chem Creatinine [Mass/Vol] 1.1 mg/dL Normal 0.5 - 1.3 mg/dL Remisol Chem eGFR 67 mL/min/1.73 m2 Normal >=59mL/min /1.73 m2 Remisol Chem Globulin (S) [Mass/Vol] 2.5 g/dL Normal 1.4 - 4.0 gm/dL Remisol Chem Glucose [Mass/Vol] 72 mg/dL Normal 55 - 199 mg/dL Re misol Chem Potassium [Moles/Vol] 4.2 mmol/L Normal 3.5 - 5.3 mmol/L Remisol Chem Protein [Mass/Vol] 6.4 g/dL Normal 6.0 - 7.8 gm/dL R emisol Chem Sodium [Moles/Vol] 139 mmol/L Normal 135 - 145 mmol/L Remisol Chem Triglyceride [Mass/Vol] 92 mg/dL Normal <=149mg/dL Remisol Chem Urea nitrogen [Mass/Vol] 11 mg/dL Normal 5 - 21 mg/dL Remisol Chem Urea nitrogen/Creatinine [Mass ratio] 10 mg/mg Normal 10 - 20 Remisol Chem CHEMISTRYOrdered By: Zena pickett on 12-01-2023 HbA1c (Bld) [Mass fraction] 5.6 % Normal <=5.9% [facility] ChemAutoSS CMPon 12-01-2023 Albumin [Mass/Vol] 3.9 g/dL Normal 3.3-5.0 [facility] Comment on above: Performed By: #### 2 269899, 6911523, 63551200, 4491305, [id number] #### [facility] Laboratory [address] [place] [address] Albumin/Globulin [Mass ratio] 1.6 {ratio} Normal 1.1-2.2 [facility] Comment on above: Performed By: #### 2 032980, 3655515, 05794133, 3523954, [id number] #### [facility] Laboratory [address] [place] [address] Alk Phos 75 Int._Unit/L Normal 21-98 [facility] Comment on above: Performed By: #### 2 341245, 7739718, 88633232, 1869876, 790759584 #### [facility] Laboratory [address] [place] [address] ALT 12 Int._Unit/L Normal 6-46 [facility] Comment on above: Performed By: #### 2 571829, 4217267, 11402913, 8218878, [id number] #### [facility] Laboratory [address] [place] [address] Anion gap [Moles/Vol] 9 mmol/L Normal 6-16 [facility] Comment on above: Performed By: #### 2 376649, 0200366, 33769332, 8594292, [id number] #### [facility] Laboratory [address] [place] [address] AST 20 Int._Unit/L Normal 5-43 [facility] Comment on above: Performed By: #### 2 889863, 5751600, 03490290, 5585925, 024567597 #### [facility] Laboratory [address] [place] [address] Bili Total 0.9 mg/dL Normal 0.0-1.1 [facility] Comment on above: Performed By: #### 2 720144, 4415621, 42670798, 6024103, 621153821 #### [facility] Laboratory [address] [place] [address] BUN/Creat Ratio 10 No Units Normal 10-20 [facility] Comment on above: Performed By: #### 2 583235, 7338676, 68635016, 8949604, 920691416 #### [facility] Laboratory [address] [place] [address] Calcium [Mass/Vol] 8.7 mg/dL Low 8.9-11.1 [facility] Comment on above: Performed By: #### 2 518648, 0089164, 03480774, 2161573, 134078546 #### [facility] Laboratory [address] [place] [address] Chloride [Moles/Vol] 104 mmol/L Normal 101-111 [facility] Comment on above: Performed By: #### 2 812651, 3019301, 16871958, 3478572, [id number] #### [facility] Laboratory [address] [place] [address] CO2 [Moles/Vol] 30 mmol/L Normal 21-[address] [facility] Comment on above: Performed By: #### 2 460895, 4400601, 42778519, 5019008, 294782725 #### [facility] Laboratory [address] [place] [address] Creatinine [Mass/Vol] 1.1 mg/dL Normal 0.5-1.3 [facility] Comment on above: Performed By: #### 2 728575, 0723075, 45536380, 2214705, 134588625 #### [facility] Laboratory [address] [place] [address] Globulin (S) [Mass/Vol] 2.5 g/dL Normal 1.4-4.0 [facility] Comment on above: Performed By: #### 2 983092, 4419279, 64143985, 4594947, 245140766 #### [facility] Laboratory [address] [place] [address] Glucose [Mass/Vol] 72 mg/dL Normal 55-199 [facility] Comment on above: Performed By: #### 2 312859, 4241171, 93946501, 3450022, 033516406 #### [facility] Laboratory [address] [place] [address] Potassium [Moles/Vol] 4.2 mmol/L Normal 3.5-5.3 [facility] Comment on above: Performed By: #### 2 505187, 6126826, 09154005, 0079247, 916060729 #### [facility] Laboratory [address] [place] [address] Protein [Mass/Vol] 6.4 g/dL Normal 6.0-7.8 [facility] Comment on above: Performed By: #### 2 153808, 4086889, 36456967, 8178049, 979437633 #### [facility] Laboratory [address] [place] [address] Sodium [Moles/Vol] 139 mmol/L Normal 135-145 [facility] Comment on above: Performed By: #### 2 017291, 3404513, 64450825, 4321994, 431850814 #### [facility] Laboratory [address] [place] [address] Urea nitrogen [Mass/Vol] 11 mg/dL Normal 5-21 [facility] Comment on above: Performed By: #### 2 759632, 8933268, 09067188, 4380058, 010259422 #### [facility] Laboratory [address] [place] [address] HEMATOLOGYOrdered By: SYSTEM SYSTEM on 12-01-2023 Basophil Absolute 0.0 E9/L Normal 0.0 - 0.2 E9/L Rem isol Heme Basophils/100 WBC (Bld) 0.4 % Normal [...] 1.8 E9/L Normal 1.0 - 4.0 E9/L Remiso l Heme Lymphocytes/100 WBC (Bld) 29.3 % Normal 14.0 - 50.0 % Remisol Heme MCH (RBC) [Entitic mass] 30.8 pg Normal 27.0 - 34.0 pg Remisol Heme MCHC (RBC) [Mass/Vol] 32.8 g/dL Normal 31.4 - 36.0 gm/dL Remisol Heme MCV (RBC) [Entitic vol] 93.8 fL Normal 80.0 - 100.0 fL Remisol Heme [place] Absolute 0.5 E9/L Normal 0.2 - 1.0 E9/L Remisol Heme Monocytes/100 WBC (Bld) 7.9 % Normal 4.0 - 14.0 % Remisol Heme Neutro Absolute 3.6 E9/L Normal 2.0 - 7.5 E9/L Remis ol Heme Neutro Auto 59.5 % Normal 36.0 - 75.0 % Remisol He me Platelet 198.0 E9/L Normal 150.0 - 500.0 E9/L Remisol Heme Platelet mean volume (Bld) [Entitic vol] 9.5 fL Normal 6.4 - 10.8 fL Remisol Heme RBC 3.9 E12/L Low 4.3 - 5.9 E12/L Remisol H [place] WBC 6.0 E9/L Normal 4.0 - 11.0 E9/L Remisol H [place] HEMATOLOGYOrdered By: Starr Tadeo on 12-01-2023 NRBC Man 0 1 Normal 0 - 0 Remisol Heme VvzA2orw 12-01-2023 HbA1c (Bld) [Mass fraction] 5.6 % Normal <=5.9 [facility] Comment on above: Performed By: #### 2 840860, 6750921, 53574164, 1438297, [id number] ####[facility] [address] [place] [address] Lipid Panelon 12-01-2023 Cholesterol [Mass/Vol] 156 mg/dL Normal 120-200 [facility] Comment on above: Performed By: #### 2 188541, 7749528, 51829381, 8892610, 796133946 #### [facility] Laboratory [address] [place] [address] Cholesterol in HDL [Mass/Vol] 51 mg/dL Invalid Interpretation Code [facility] Comment on above: Result Comment: '>= 60 LOW RISK' '<= 40 HIGH RISK' Performed By: #### 2 052044, 3914530, 32687928, 8643702, 320350590 #### [facility] Laboratory [address] [place] [address] Cholesterol in LDL [Mass/Vol] 89 mg/dL Normal <=129 [facility] Comment on above: Performed By: #### 2 461117, 3385704, 70813255, 2395906, 079497449 #### [facility] Laboratory [address] [place] [address] Cholesterol in VLDL [Mass/Vol] 18 mg/dL Normal 7-40 [facility] Comment on above: Performed By: #### 2 095128, 4616293, 16439349, 7086669, 261451496 #### [facility] Laboratory [address] [place] [address] Triglyceride [Mass/Vol] 92 mg/dL Normal <=149 [facility] Comment on above: Performed By: #### 2 445761, 4327313, 43524637, 1687187, 905969199 #### [facility] Laboratory [address] [place] [address] U Microalbon 12-01-2023 U Microalb <2.0 Normal 0.0-19.0 [facility] Comment on above: Performed By: #### 1 [id number], 46969011 ####[facility] [address] [place] [address] U Protein/Creat Ratioon 11-14 U Creatinine 62.5 mg/dL Invalid Interpretation Code [facility] Comment on above: Performed By: #### 1 [id number], 93605013 ####[facility] [address] [place] [address] U Prot/Creat Ratio NOT CALCULATED Invalid Interpretation Code .00-200.00 [facility] Comment on above: Performed By: #### 1 [id number], [id number] ####[facility] [address] [place] [address] Ur Total Protein <6.0 Invalid Interpretation Code [facility] Comment on above: Performed By: #### 1 [id number], [id number] ####[facility] [address] [place] [address] eGFRon 12-01-2023 eGFR 67 mL/min/1.73 m2 Normal >=59 [facility] Comment on above: Order Comment: Order added by Discern Expert. Performed By: #### 2 036083, 7844747, 89763632, 0044998, [id number] #### [facility] Laboratory [address] [place] [address] Basic Metabolic Panelon 122 Anion gap [Moles/Vol] 8.1 mmol/L Normal 6.0-15.0 [facility] Comment on above: Order Comment: Reaso n for Exam Hyponatremia Performed By: #### C BC, BMP #### [facility] [address] [place] [address] [facility] Calcium [Mass/Vol] 9.3 mg/dL Normal 8.6-10.3 [place] Comment on above: Order Comment: Reaso n for Exam Hyponatremia Result Comment: PERF ORMED BY: [facility] [address] [place] [address] PATHOLOGIST [employer]IL WELL DIRECTIONAL SURVEYOR DANNY NEAL M.D. Performed By: #### C BC, BMP #### [facility] [address] [place] [id number] [place] Chloride [Moles/Vol] 102 mmol/L Normal 98-107 [facility] [employer] Other Comment on above: Order Comment: Reaso n for Exam Hyponatremia Performed By: #### C BC, BMP #### [facility] [address] [place] [id number] [place] CO2 [Moles/Vol] 32.4 mmol/L High 21.0-31.0 [facility] Comment on above: Order Comment: Reaso n for Exam Hyponatremia Performed By: #### C BC, BMP #### [facility] [address] [place] [id number] [facility] Creatinine [Mass/Vol] 1.07 mg/dL Normal 0.70-1.30 [facility] Comment on above: Order Comment: Reaso n for Exam Hyponatremia Performed By: #### C BC, BMP #### [facility] [address] [place] [address] [place] GFR/1.73 sq M.predicted MDRD (S/P/Bld) [Vol rate/Area] mL/min/{1.73_m2} Normal [facility] [employer] Other Comment on above: Order Comment: Reaso n for Exam Hyponatremia Performed By: #### C BC, BMP #### [facility] [address] [place] [id number] [place] Glucose [Mass/Vol] 93 mg/dL Normal 70-100 [facility] [employer] Other Comment on above: Order Comment: Reaso n for Exam Hyponatremia Result Comment: [place] om Glucose Reference Range is dependent on time and content of last meal. Glucose of more than 200 mg/dL in a nonstressed, ambulatory subject supports the diagnosis of Diabetes Mellitus. ADA recommended reference range Performed By: #### C BC, BMP #### [facility] [address] [place] [id number] [place] Potassium [Moles/Vol] 4.5 mmol/L Normal 3.5-5.1 [facility] Comment on above: Order Comment: Reaso n for Exam Hyponatremia Performed By: #### C BC, BMP #### [facility] [address] Sodium [Moles/Vol] 138 mmol/L Normal 136-145 [employer] Other Comment on above: Order Comment: Reaso n for Exam Hyponatremia Performed By: #### C BC, BMP #### [facility] [address] [place] [address] [place] Urea nitrogen [Mass/Vol] 13 mg/dL Normal 7-25 [employer] Other Comment on above: Order Comment: Reaso n for Exam Hyponatremia Performed By: #### C BC, BMP #### [facility] [address] [place] [address] [place] Calcium [Mass/Vol] 9.6697210 mg/dL Normal 8.6-10.3 mg/ dL [employer] Other CO2 [Moles/Vol] 32.40015687 mmol/L High 21.0-31.0 mm ol/L [employer] Other Creatinine [Mass/Vol] 1.17811746 mg/dL Normal 0.70-1.30 mg/dL [employer] Other Potassium [Moles/Vol] 4.86406853 mmol/L Normal 3.5-5.1 mmol/L [employer] Other Complete Blood Count Auto Di ffon 11-02-2023 Basophils (Bld) [#/Vol] 0.1 10*3/uL Normal 0.0-0.2 [facility] Comment on above: Order Comment: Reaso n for Exam Atrial fibrillation Result Comment: PERF ORMED BY: [place] [address] PATHOLOGIST OIL WELL DIRECTIONAL SURVEYOR DANNY NEAL M.D. Performed By: #### C BC, BMP #### [facility] [address] [place] [address] [place] Basophils/100 WBC (Bld) 1.0 % Normal . [facility] Comment on above: Order Comment: Reaso n for Exam Atrial fibrillation Performed By: #### C BC, BMP #### [facility] [address] [place] [address] [place] Eosinophils (Bld) [#/Vol] 0.1 10*3/uL Normal 0.0-0.45 [facility] Comment on above: Order Comment: Reaso n for Exam Atrial fibrillation Performed By: #### C BC, BMP #### [place] [address] [place] Eosinophils/100 WBC (Bld) 2.1 % Normal . [facility] Comment on above: Order Comment: Reaso n for Exam Atrial fibrillation Performed By: #### C BC, BMP #### [address] Erythrocyte distribution width (RBC) [Ratio] 14.0 % Normal 12.0-14.8 [facility] Comment on above: Order Comment: Reaso n for Exam Atrial fibrillation Performed By: #### C BC, BMP #### [address] Hematocrit (Bld) [Volume fraction] 38.8 % Normal 38.8-50.0 [facility] Comment on above: Order Comment: Reaso n for Exam Atrial fibrillation Performed By: #### C BC, BMP #### [place] [address] [place] Hemoglobin (Bld) [Mass/Vol] 13.2 g/dL Normal 13.0-17.0 [facility] Comment on above: Order Comment: Reaso n for Exam Atrial fibrillation Performed By: #### C BC, BMP #### [place] [address] [place] Lymphocytes (Bld) [#/Vol] 1.3 10*3/uL Normal 1.00-4.8 [facility] Comment on above: Order Comment: Reaso n for Exam Atrial fibrillation Performed By: #### C BC, BMP #### [place] [address] [place] Lymphocytes/100 WBC (Bld) 21.8 % Normal . [facility] Comment on above: Order Comment: Reaso n for Exam Atrial fibrillation Performed By: #### C BC, BMP #### [facility] [address] MCH (RBC) [Entitic mass] 31.5 pg Normal 27.5-35.2 [facility] Comment on above: Order Comment: Reaso n for Exam Atrial fibrillation Performed By: #### C BC, BMP #### [address] MCV (RBC) [Entitic vol] 92.7 fL Normal 83.5-101 [facility] Comment on above: Order Comment: Reaso n for Exam Atrial fibrillation Performed By: #### C BC, BMP #### [address] Mean Corpuscular HGB Conc 34.0 g/dL Normal 32.5-35.6 [facility] Comment on above: Order Comment: Reaso n for Exam Atrial fibrillation Performed By: #### C BC, BMP #### [place] [address] [place] Monocytes (Bld) [#/Vol] 0.5 10*3/uL Normal 0.0-0.8 [facility] Comment on above: Order Comment: Reaso n for Exam Atrial fibrillation Performed By: #### C BC, BMP #### [place] [address] [place] Monocytes/100 WBC (Bld) 8.5 % Normal . [facility] Comment on above: Order Comment: Reaso n for Exam Atrial fibrillation Performed By: #### C BC, BMP #### [facility] [address] [place] [address] [place] Neutrophils (Bld) [#/Vol] 4.0 10*3/uL Normal 1.8-7.7 [facility] Comment on above: Order Comment: Reaso n for Exam Atrial fibrillation Performed By: #### C BC, BMP #### [place] [address] [place] Neutrophils/100 WBC (Bld) 66.6 % Normal . [facility] Comment on above: Order Comment: Reaso n for Exam Atrial fibrillation Performed By: #### C BC, BMP #### [facility] [address] NRBC% 0.1 /100{WBC} Normal 0-0.5 [facility] Comment on above: Order Comment: Reaso n for Exam Atrial fibrillation Performed By: #### C BC, BMP #### [facility] [address] Platelet mean volume (Bld) [Entitic vol] 9.4 fL Normal 6.6-10.1 [facility] Comment on above: Order Comment: Reaso n for Exam Atrial fibrillation Performed By: #### C BC, BMP #### [address] Platelets (Bld) [#/Vol] 153 10*3/uL Normal 150-450 [employer] Other Comment on above: Order Comment: Reaso n for Exam Atrial fibrillation Performed By: #### C BC, BMP #### [address] RBC (Bld) [#/Vol] 4.19 10*6/uL Normal 3.90-5.60 [employer] Other Comment on above: Order Comment: Reaso n for Exam Atrial fibrillation Performed By: #### C BC, BMP #### [address] WBC (Bld) [#/Vol] 6.1 10*3/uL Normal 4.1-10.5 [place] Comment on above: Order Comment: Reaso n for Exam Atrial fibrillation Performed By: #### C BC, BMP #### [address] Basophils (Bld) [#/Vol] 0.373160182 10*3/uL Normal 0.0-0.2 10*3/uL [employer] Other Basophils/100 WBC (Bld) 1.000 % . % [employer] Other Eosinophils (Bld) [#/Vol] 0.172096200 10*3/uL Normal 0.0-0.45 10*3/uL [employer] Other Eosinophils/100 WBC (Bld) 2.100 % . % [employer] Other Erythrocyte distribution width (RBC) [Ratio] 14.000 % Normal 12.0-14.8 % [employer] Other Hematocrit (Bld) [Volume fraction] 38.800 % Normal 38.8-50.0 % [employer] Other Hemoglobin (Bld) [Mass/Vol] 13.117043 g/dL Normal 13.0-17.0 g/dL [employer] Other Lymphocytes (Bld) [#/Vol] 1.177311295 10*3/uL Normal 1.00-4.8 10*3/uL [employer] Other Lymphocytes/100 WBC (Bld) 21.800 % . % [employer] Other MCH (RBC) [Entitic mass] 31.5000 pg Normal 27.5-35.2 pg [employer] Other MCV (RBC) [Entitic vol] 92.7000 fL Normal 83.5-101 fL [employer] Other Monocytes (Bld) [#/Vol] 0.901850864 10*3/uL Normal 0.0-0.8 10*3/uL [employer] Other Monocytes/100 WBC (Bld) 8.500 % . % [employer] Other Neutrophils (Bld) [#/Vol] 4.313798089 10*3/uL Normal 1.8-7.7 10*3/uL [employer] Other Neutrophils/100 WBC (Bld) 66.600 % . % [employer] Other Platelet mean volume (Bld) [Entitic vol] 9.4000 fL Normal 6.6-10.1 fL [employer] Other WBC (Bld) [#/Vol] 6.835466359 10*3/uL Normal 4.1-10.5 10*3/uL [employer] Other Complete Blood Count Auto Diff 6.1 10*3/uL Normal 4.1-10.5 10*3/uL [employer] Other Complete Blood Count Auto Diff 34.0 g/dL Normal 32.5-35.6 g/dL [employer] Other Complete Blood Count Auto Diff 0.1 /100{WBC} Normal 0-0.5 /100{WBC} [employer] Other PSA Screen (Yearly Only)on 01-03-2023 PSA Screen (Yearly Only) 1.940 ng/mL Normal 0.000-4.000 [facility] Comment on above: Order Comment: Reaso n for Exam Prostate cancer screening Result Comment: Dominik jacob tumor marker results determined by assays using different manufacturers or methods may not be comparable. [facility] panama hat smearer and method: BjondEL DXI, CHEMILUMINESCENT IMMUNOASSAY. PERFORMED BY: [place] [address] PATHOLOGIST OIL WELL DIRECTIONAL SURVEYOR DANNY NEAL M.D. Performed By: #### P SAS #### [address] Prothrombin Time INRon 06-16 INR Coag (PPP) [Relative time] 2.4 {INR} Normal [employer] Other Comment on above: Result Comment: INR [...] heart valves: 3 - 4.5 PERFORMED BY: [address] [address] PATHOLOGIST OIL WELL DIRECTIONAL SURVEYOR DANNY NEAL M.D. Performed By: #### P T #### [facility] [address] [place] [address] [facility] PT Coag (PPP) [Time] 27.8 s High 9.0-12.9 [facility] Comment on above: Performed By: #### P T #### [facility] [address] [place] [address] [facility] PT Coag (PPP) [Time] 27.800 s High 9.0-12.9 s [employer] Other Coding Summaryon 05-12-2020 Coding Summary CODING DATE: 05/12/2020 [facility] STATUS: Home PAYOR: Medicare MC [...] Horan Date Saved: 05/12/2020 02:18 pm Normal [facility] ED Clinical Summaryon 2019 ED Clinical Summary [facility] ? Urgent Care [address] [place], [place] [id number] Clinical Summary PERSON INFORMATION Name: DARIEL ZABALA Age: 80 Years Sex: MALE : 1940 MRN: Acct#: Visit Reason: UC - Ear Problem; BILAT EAR PROBLEM Arrival: 05/08/2020 09:32:00 Discharge: 05/08/2020 10:15:00 LOS: 000 00:43 Check In: 05/08/2020 09:32:00 Checkout: 05/08/2020 10:15:00 Address: [facility] [place] [address] PCP: Provider, Unlisted PROVIDER INFORMATION Provider Role Assigned Unassigned Larry Billingsley PA-C ED PA 05/08/2020 09:36:31 Андрей KHAN, Ramona ED Nurse 05/08/2020 09:36:55 VITALS INFORMATION Vital Sign Triage Latest Temperature Tympanic Temperature Temporal Artery Pulse Rate O2 Sat 96 % 96 % Respiratory Rate Blood Pressure /79 mmHg /79 mmHg MEDICAL INFORMATION Medications Given: Allergy Information: No known allergies PHYSICIAN DOCUMENTATION DISCHARGE INFORMATION: Discharge Disposition: Home Discharge Location: Home PATIENT EDUCATION INFORMATION Instructions: Earwax Buildup, Adult Follow-Up: With: Address: When: [facility], [address] [place] [phone] Business (1) Comments: Please follow-up with your Doctor or Dr. Arellano Medical Doctor director of valuation, call their offices and make ointment to be seen in 3 days or sooner for continued care, please purchase [id number] Debrox which helps breakdown earwax, take all your medications as previously prescribed, drink plenty of water for hydration, and return back to urgent care center for any worsening symptoms, concerns, or complications. DIAGNOSIS: 1:Impacted cerumen of both ears Patient Understands: Yes - Patient/family/healthcare administration internship verbalizes understanding of instructions given Comment: Normal [facility] ED Patient Summaryon 020 ED Patient Summary [facility] ? Urgent Care [address] [place], [place] [id number] PATIENT DISCHARGE INSTRUCTIONS Patient Information Name: DARIEL ZABALA Age: 80 Years Date of : 1940 Reason For Visit: UC - Ear Problem; BILAT EAR PROBLEM Arrival Time: 05/08/2020 09:32:00 Primary Care Physician: Provider, Unlisted Attending Physician: Larry Billingsley PA-C Comment: Patient Education With: Address: When: [facility], [address] [place] [phone] Business (1) Comments: Please follow-up with your Doctor or Dr. Arellano Medical Doctor director of valuation, call their offices and make ointment to be seen in 3 days or sooner for continued care, please purchase dvts-vdt-vehzzpg Debrox which helps breakdown earwax, take all [...] Follow these instructions at home: ? Take khlt-cmr-pvleegv and prescription medicines only as told by [...] clean them according to instructions from the panama hat smearer and your health care provider. Contact a [...] 12/08/2005 Document Revised: 10/12/2018 Document Reviewed: 01/11/2018 [employer] Interactive Patient Education ? 2019 [employer] Medication Information: The exam and treatment you received today in the [facility] Emergency Department were for an urgent problem and are not intended as complete care. It is important for you to follow up with a doctor, nurse practitioner, or physician?s materials assistant for ongoing care. If your symptoms [...] so we can reach you if necessary. [facility] Emergency Department has provided you with a complete list of medications post discharge. Please inform your manufacturing engineer automotive/provider of your visit and for further instruction [...] both ears (H61.23) UC - Ear Problem ([id number]) If you received any narcotics, sedation, or [...] Problems List: Problem Onset Comments DIABETES MELLITUS Hypercholesterolemi a Hypertension Major Tests and Procedures: The following [...] Infection Yes Antibiotics Aren?t Always the Answer www.cdc.gov/getsmar t GET SMART Know When Antibiotics Work U.S. Department of Health and Human Services Centers for Disease Control and Prevention July 2014 [facility] Patient Handouton 05-08-2020 Patient Handout Patient [...] Follow these instructions at home: ? Take rrnz-fdi-ujqymmp and prescription medicines only as told by [...] clean them according to instructions from the panama hat smearer and your health care provider. Contact a [...] 12/08/2005 Document Revised: 10/12/2018 Document Reviewed: 01/11/2018 [employer] Interactive Patient Education ? 2019 [employer]. Normal [facility] Recordon 020 Urgent Care Record [facility] ? Urgent Care [address] [place], [place] [id number] PATIENT DISCHARGE INSTRUCTIONS Patient Information Name: DARIEL ZABALA Age: 80 Years Date of : 1940 Reason For Visit: UC - Ear Problem; BILAT EAR PROBLEM Arrival Time: 05/08/2020 09:32:00 Primary Care Physician: Provider, Unlisted Attending Physician: Larry Billingsley PA-C Comment: Visit Diagnosis: Diagnoses This Visit Impacted cerumen of both ears (H61.23) UC - Ear Problem ([id number]) If you received any narcotics, sedation, or [...] any legal documents With: Address: When: Andrés Arellano [facility], [address] [place] [id number] Business (1) Comments: Please follow-up with your Doctor or Dr. Arellano, Medical Doctor director of valuation, call their offices and make ointment to be seen in 3 days or sooner for continued care, please purchase xcjy-lci-obcyedp Debrox which helps breakdown earwax, take all your medications as previously prescribed, drink plenty of water for hydration, and return back to urgent care center for any worsening symptoms, concerns, or complications. Medication Information: The exam and treatment you received today in the [facility] Care were for an urgent problem and are not intended as complete care. It is important for you to follow up with a doctor, nurse practitioner, or physician?s materials assistant for ongoing care. If your symptoms [...] so we can reach you if necessary. [facility] has provided you with a complete list of medications post discharge. Please inform your manufacturing engineer automotive/provider of your visit and for further instruction [...] Problems List: Problem Onset Comments DIABETES MELLITUS Hypercholesterolemi a Hypertension Patient Education Earwax Buildup, Adult The [...] Follow these instructions at home: ? Take xccb-bos-vgzpqps and prescription medicines only as told by [...] clean them according to instructions from the panama hat smearer and your health care provider. Contact a [...] 12/08/2005 Document Revised: 10/12/2018 Document Reviewed: 01/11/2018 [employer] Interactive Patient Education ? 2019 [employer] Viruses or Bacteria What?s got you [...] Infection Yes Antibiotics Aren?t Always the Answer www.cdc.gov/getsmar t GET SMART Know When Antibiotics Work U.S. Department of Health and Human Services Centers for Disease Control and Prevention July 2014 [facility] Vital Signs Date Time Vital Sign Value Performing Clinician Facility 06-11-2024 12:48-0400 Diastolic blood pressure 78 mm[Hg] Kashif [employer] [facility] 06-11-2024 12:48-0400 Heart rate 70 /min Kashif [employer] [facility] 06-11-2024 12:48-0400 Respiratory rate 18 /min Kashif [employer] [facility] 06-11-2024 12:48-0400 SaO2% (BldA) [Mass fraction] 97 % Kashif [employer] [facility] 06-11-2024 12:48-0400 Systolic blood pressure 138 mm[Hg] Kashif Kirnus [facility] 05-30-2024 13:31-0400 Blood Pressure Location Dixon Dubose [facility] 05-30-2024 13:31-0400 Diastolic blood pressure 70 mm[Hg] Dixon Dubose [facility] 05-30-2024 13:31-0400 Heart rate 75 /min Dixon Dubose [facility] 05-30-2024 13:31-0400 Respiratory rate 18 /min Dixon Dubose [facility] 05-30-2024 13:31-0400 SaO2% (BldA) [Mass fraction] 95 % Dixon Dubose [facility] 05-30-2024 13:31-0400 Systolic blood pressure 130 mm[Hg] Dixon Dubose [facility] 04-20-2024 13:17-0400 Diastolic blood pressure 78 mm[Hg] Kashif Julissanus [facility] 04-20-2024 13:17-0400 Heart rate 62 /min Kashif Julissanus [facility] 04-20-2024 13:17-0400 SaO2% (BldA) [Mass fraction] 97 % Kashif Julissanus [facility] 04-20-2024 13:17-0400 Systolic blood pressure 138 mm[Hg] Kashif Julissanus [facility] 03-26-2024 14:30-0400 Diastolic blood pressure 64 mm[Hg] Axel Hernández [facility] 03-26-2024 14:30-0400 Heart rate 50 /min Axel Hernández [facility] 03-26-2024 14:30-0400 Respiratory rate 16 /min Axel Hernández [facility] 03-26-2024 14:30-0400 SaO2% (BldA) [Mass fraction] 98 % Axel Hernández [facility] 03-26-2024 14:30-0400 Systolic blood pressure 128 mm[Hg] Axel Hernández [facility] 03-26-2024 13:31-0400 Heart rate 54 /min Axel Hernández [facility] 03-26-2024 13:31-0400 SaO2% (BldA) [Mass fraction] 97 % Axel Hernández [facility] 03-26-2024 13:31-0400 Respiratory rate 16 /min Axel Catherine [facility] 03-26-2024 13:30-0400 Body temperature 97.34 [degF] Axel Catherine [facility] 03-26-2024 13:29-0400 Blood Pressure Location Axel Hernández [facility] 03-26-2024 13:29-0400 Diastolic blood pressure 70 mm[Hg] Axel Catherine [facility] 03-26-2024 13:29-0400 Mean blood pressure 88 mm[Hg] Axel Catherine [facility] 03-26-2024 13:29-0400 Systolic blood pressure 125 mm[Hg] Axel Catherine [facility] 03-26-2024 13:20-0400 Body temperature 97.52 [degF] Axel Catherine [facility] 03-26-2024 13:20-0400 Diastolic blood pressure 63 mm[Hg] Axel Catherine [facility] 03-26-2024 13:20-0400 Heart rate 54 /min Axel Catherine [facility] 03-26-2024 13:20-0400 Mean blood pressure 77 mm[Hg] Axel Catherine [facility] 03-26-2024 13:20-0400 Respiratory rate 15 /min Axel Catherine [facility] 03-26-2024 13:20-0400 SaO2% (BldA) [Mass fraction] 97 % Axel Catherine [facility] 03-26-2024 13:20-0400 Systolic blood pressure 104 mm[Hg] Axel Catherine [facility] 03-26-2024 13:15-0400 Mean blood pressure 73 mm[Hg] Axel Catherine [facility] 03-26-2024 13:15-0400 Respiratory rate 15 /min Axel Catherine [facility] 03-26-2024 13:10-0400 Mean blood pressure 72 mm[Hg] Axel Hernández [facility] 03-26-2024 13:10-0400 Respiratory rate 11 /min Axel Catherine [facility] 03-26-2024 12:55-0400 Body temperature 97.52 [degF] Axel Hernández [facility] 03-26-2024 12:50-0400 Respiratory rate 1 /min Axel Hernández [facility] 03-26-2024 09:36-0400 Blood Pressure Location Axel Catherine [facility] 03-26-2024 09:36-0400 Mean blood pressure 112 mm[Hg] Axel Hernández [facility] 03-26-2024 09:34-0400 Mean blood pressure 97 mm[Hg] Axel Hernández [facility] 03-26-2024 09:34-0400 Body temperature 97.34 [degF] Axel Hernández [facility] 03-26-2024 09:34-0400 Blood Pressure Location Axel Hernández [facility] 03-26-2024 09:34-0400 Heart rate 50 /min Axel Hernández [facility] 03-06-2024 08:11-0400 Blood Pressure Location Axel Hernández [facility] 03-06-2024 08:11-0400 Diastolic blood pressure 74 mm[Hg] Axel Hernández [facility] 03-06-2024 08:11-0400 Heart rate 56 /min Axel Hernández [facility] 03-06-2024 08:11-0400 Mean blood pressure 98 mm[Hg] Axel Hernández [facility] 03-06-2024 08:11-0400 Systolic blood pressure 147 mm[Hg] Axel Hernández [facility] 03-06-2024 08:11-0400 Heart rate 57 /min Axel Hernández [facility] 03-06-2024 08:11-0400 SaO2% (BldA) [Mass fraction] 98 % Axel Hernández [facility] 03-06-2024 08:10-0400 Blood Pressure Location Axel Hernández [facility] 03-06-2024 08:10-0400 Body temperature 98.06 [degF] Axel Hernández [facility] 03-06-2024 08:10-0400 Diastolic blood pressure 73 mm[Hg] Axel Hernández [facility] 03-06-2024 08:10-0400 Mean blood pressure 92 mm[Hg] Axel Catherine [facility] 03-06-2024 08:10-0400 Systolic blood pressure 129 mm[Hg] Axel Catherine [facility] 03-06-2024 08:10-0400 Respiratory rate 18 /min Axel Hernández [facility] 11-18-2023 11:00-0500 Body height 180.34 cm Jada Rene Other [employer] Other 11-18-2023 11:00-0500 Body mass index (BMI) [Ratio] 25.38 kg/m2 Jada Rene Other [facility] Other 11-18-2023 11:00-0500 Body temperature 97.6 [degF] Jadaendy Rene Other [facility] Other 11-18-2023 11:00-0500 Body weight 82.56 kg Jadaendy Rene Other [facility] Other 11-18-2023 11:00-0500 Diastolic blood pressure 80 mm[Hg] Jada Rene Other [facility] Other 11-18-2023 11:00-0500 Respiratory rate 18 /min Jadamary Rene Other [facility] Other 11-18-2023 11:00-0500 SaO2% (BldA) [Mass fraction] 99 % Jadaendy Rene Other [facility] Other 11-18-2023 11:00-0500 Systolic blood pressure 132 mm[Hg] Jada Rene Other [facility] Other 11-02-2023 13:00-0500 Body height 180.34 cm Jadamary Rene Other [facility] Other 11-02-2023 13:00-0500 Body mass index (BMI) [Ratio] 24.4 kg/m2 Jadaendy Rene Other [facility] Other 11-02-2023 13:00-0500 Body weight 79.38 kg Jadaendy Rene Other [facility] Other 11-02-2023 13:00-0500 Diastolic blood pressure 82 mm[Hg] Jada Rene Other [facility] Other 11-02-2023 13:00-0500 Respiratory rate 18 /min Jada Rene Other [facility] Other 11-02-2023 13:00-0500 SaO2% (BldA) [Mass fraction] 97 % Jada Rene Other [facility] Other 11-02-2023 13:00-0500 Systolic blood pressure 138 mm[Hg] Jada Rene Other [facility] Other 09-21-2023 10:00-0500 Body height 180.34 cm Jada Rene Other [facility] Other 09-21-2023 10:00-0500 Body mass index (BMI) [Ratio] 25.81 kg/m2 Jada Rene Other [facility] Other 09-21-2023 10:00-0500 Body weight 83.96 kg Jada Edgard Other [facility] Other 09-21-2023 10:00-0500 Diastolic blood pressure 70 mm[Hg] Jada Rene Other [facility] Other 09-21-2023 10:00-0500 Respiratory rate 18 /min Jada Rene Other [facility] Other 09-21-2023 10:00-0500 SaO2% (BldA) [Mass fraction] 98 % Jada Edgard Other [facility] Other 09-21-2023 10:00-0500 Systolic blood pressure 140 mm[Hg] Jada Rene Other [facility] Other 06-16-2023 11:00-0400 Body height 180.34 cm Jadamary Rene Other [facility] Other 06-16-2023 11:00-0400 Body mass index (BMI) [Ratio] 23.79 kg/m2 Jada Edgard Other [facility] Other 06-16-2023 11:00-0400 Body weight 77.38 kg Jada Rene Other [facility] Other 06-16-2023 11:00-0400 Diastolic blood pressure 64 mm[Hg] Jada Edgard Other [facility] Other 06-16-2023 11:00-0400 Respiratory rate 18 /min Jada Rene Other [facility] Other 06-16-2023 11:00-0400 SaO2% (BldA) [Mass fraction] 98 % Jadamary Rene Other [facility] Other 06-16-2023 11:00-0400 Systolic blood pressure 118 mm[Hg] Jada Rene Other [employer] Other Encounters Encounter Date Encounter Type Care Provider Facility Start: 05-02-2025 ambulatory MD Kylah Garcia Facil ity:[facility] Start: 11-01-2024 ambulatory MD Kylah Garcia Facil ity:[facility] Start: 08-14-2024 ambulatory Davie Vargas Facilit y: [facility] Start: 08-07-2024 End: 08-07-2024 ambulatory MD Kylah Garcia Facility:[facility] [place] Start: 07-31-2024 End: 07-31-2024 ambulatory MD Kylah Garcia Facility: [facility] [place] Start: 07-24-2024 End: 07-24-2024 ambulatory MD Kylah Garcia Facility:[facility] [place] Start: 07-23-2024 ambulatory MD Kylah Garcia Facil ity: [place] Start: 07-05-2024 ambulatory Kashif Barnett Facility :[facility] Start: 07-03-2024 End: 07-03-2024 ambulatory MD Kylah Garcia Facility:[facility] [place] Start: 06-20-2024 End: 06-20-2024 ambulatory AXEL HERNÁNDEZ Not Available Start: 06-11-2024 End: 06-11-2024 ambulatory XXXX NONE Facility:[facility] Start: 06-11-2024 End: 06-11-2024 Patient encounter procedure Kashif Barnett [facility] Start: 05-30-2024 End: 05-30-2024 ambulatory Dixon Dubose Facility:[facility] Start: 05-30-2024 End: 05-30-2024 Patient encounter procedure Dixon Dubose [facility] Start: 05-21-2024 End: 05-21-2024 ambulatory Kashif Barnett Facility:[facility] Start: 05-21-2024 End: 05-21-2024 Patient encounter procedure Kashif Barnett [facility] Start: 05-03-2024 End: 05-03-2024 ambulatory MD Kylah Garcia Facility:[facility] [place] Start: 05-01-2024 End: 05-01-2024 ambulatory MD Kashif Barnett Facility:[facility] Start: 05-01-2024 End: 05-01-2024 Patient encounter procedure Kashif Barnett [facility] Start: 05-01-2024 End: 05-01-2024 Lab Drop off Kylah Garcia [facility] Start: 05-01-2024 End: 05-01-2024 ambulatory MD Kylah Garcia Facility: [facility] Start: 04-20-2024 End: 04-20-2024 ambulatory MD Kashif Barnett Facility:[facility] Start: 04-20-2024 End: 04-20-2024 Patient encounter procedure Kashif Barnett [facility] Start: 04-04-2024 End: 04-04-2024 ambulatory AXEL HERNÁNDEZ Not Available Start: 03-26-2024 End: 03-26-2024 Admission to same day surgery center Axel Hernández [facility] Start: 03-26-2024 End: 03-26-2024 ambulatory Axel Hernández Facility:[facility] Start: 03-20-2024 End: 03-20-2024 ambulatory MD Kylah Garcia Facility: [facility] [place] Start: 03-08-2024 End: 03-08-2024 ambulatory MD Kylah Garcia Facility: [facility] Start: 03-06-2024 End: 03-06-2024 ambulatory Axel Hernández Facility:[facility] Start: 03-06-2024 End: 03-06-2024 Patient encounter procedure Axel Hernández [facility] Start: 02-15-2024 End: 02-15-2024 ambulatory AXEL HRENÁNDEZ Not Available Start: 02-15-2024 End: 02-15-2024 ambulatory AXEL HERNÁNDEZ Not Available Start: 02-02-2024 End: 02-02-2024 ambulatory MD Kylah Garcia Facility:[facility] Start: 12-06-2023 End: 12-06-2023 ambulatory Jada Rene Other [facility] Other Start: 12-06-2023 Telephone encounter Jada Rene [facility] [place] Start: 12-02-2023 End: 12-02-2023 ambulatory Jadamary Rene Other [facility] Other Start: 12-02-2023 Telephone encounter Jada Rene [facility] [place] Start: 12-01-2023 End: 12-01-2023 Lab Drop off Kylah Garcia [facility] Start: 12-01-2023 End: 12-01-2023 ambulatory MD Kylah Garcia Facility:[facility] Start: 12-01-2023 ambulatory MD Kylah Garcia Facility :[facility] Start: 11-18-2023 End: 11-18-2023 ambulatory Jada Rene Other [facility] Other Start: 11-18-2023 Office outpatient vi sit 25 minutes Jada Rene [facility] [place] Start: 11-02-2023 End: 11-02-2023 ambulatory Jada Rene [employer] Other Start: 11-02-2023 Office outpatient vi sit 25 minutes Jada Rene [facility] [place] Start: 11-02-2023 Telephone encounter Jadamary Rene [facility] [place] Start: 10-28-2023 End: 10-28-2023 ambulatory Jadaendy Rene Other [facility] Other Start: 10-28-2023 Telephone encounter Jada Rene [facility] [place] Start: 09-30-2023 End: 09-30-2023 Nurse Triage Venessa Riggins RN NURSE TECHNOLOGY COORDINATOR Comment on above: Refill Request Start: 09-30-2023 Telephone encounter Jada Rene [facility] [place] Start: 09-21-2023 End: 09-21-2023 ambulatory Jadaendy Rene Other [employer] Other Start: 09-21-2023 Office outpatient vi sit 25 minutes Jadaendy Rene [facility] Start: 08-29-2023 End: 08-29-2023 ambulatory Jadaendy Rene Other [facility] Other Start: 08-29-2023 Telephone encounter Jada Rene [facility] [place] Start: 08-26-2023 End: 08-26-2023 ambulatory Jadaendy Rene Other [employer] Other Start: 08-26-2023 Telephone encounter Jada Rene [facility] Start: 08-08-2023 End: 08-08-2023 ambulatory Jadaendy Rene Other [facility] Other Start: 08-08-2023 Telephone encounter Jada Rene [facility] [place] Start: 07-27-2023 End: 07-27-2023 ambulatory Jadaendy Rene Other [facility] Other Start: 07-27-2023 Telephone encounter Jada Rene [facility] Start: 06-16-2023 End: 06-16-2023 ambulatory Jada Endy Rene [employer] Other Start: 06-16-2023 Office outpatient ne w 45 minutes Jadaendy Rene [facility] Start: 06-16-2023 Telephone encounter Jadaendy Rene [facility] [place] Procedures Date Procedure Procedure Detail Performing Clinician Start: 03-26-2024 Decompression of med carlos nerve Axel Hernández Decompression of med carlos nerve Axel Hernández Surgery (qualifier value) Sa fariha Garcia Plan of Treatment Date Care Activity Detail Author Start: 07-15-2023 Influenza vaccination Influenza Vacc ine (#1) [facility] Start: 11-14-2022 Advance Directive Discussion Advance Directive Discussion [facility] Start: 11-14-2022 Depression Assessment Depression Ass essment [facility] Start: 03-31-2016 Pneumococcal Vaccine : 65+ (2 - PPSV23 or PCV20) Pneumococcal Vaccine: 65+ (2 - PPSV23 or PCV20) [facility] Start: 03-24-2016 Hepatitis B surface antibody level LDL Cholesterol [facility] Start: 09-24-2015 Hemoglobin A1c/Hemoglobin.total in Blood HbA1C [facility] Start: 08-01-2015 3 comp foot exam completed Diabetic Foot Exam [facility] Start: 07-25-2015 Hepatitis B screening Urine Al bumin:Creatinine Ratio [facility] Start: 02-01-2015 Urine microalbumin profile DTaP,Tdap,Td Vaccine (1 - Tdap) [facility] Start: 10-24-2013 Shingrix Vaccine (2 of 3) Shingrix V accine (2 of 3) [facility] Start: 09-14-2012 Hepatitis C antibody , confirmatory test Dilated Retinal Exam [facility] Start: 2002 RSV Vaccine (1 - 1-d ose 60+ series) RSV Vaccine (1 - 1-dose 60+ series) [facility] Start: 1942 Covid-19 Vaccine (#1) Covid-19 Vacci ne (#1) [facility] Immunizations Immunization Date Immunization Notes Care Provider Fa cility 09-21-2023 Prevnar 20 Jada Rene Other [facility] [place] 08-19-2023 Flu Shot - Documentation Purposes Only Jada Rene Other [facility] Other 08-19-2023 influenza virus vaccine, unspecified formulation Kylah Garcia [facility] 08-14-2022 influenza, seasonal, injectable Jada Edgard Other [facility] Other 03-31-2015 pneumococcal conjuga te vaccine, 13 valent Jada Edgard Other [facility] 08-02-2014 influenza, high dose seasonal, preservative-free Venessa Riggins RN [facility] 08-02-2014 influenza virus vaccine, unspecified formulation Venessa Riggins RN [facility] 08-29-2013 zoster vaccine, live Venessa Riggins RN [facility] 08-09-2013 influenza virus vaccine, unspecified formulation Venessa Riggins RN [facility] 07-31-2012 influenza virus vaccine, unspecified formulation Venessa Riggins RN [facility] Work Phone: 03-07-2012 tetanus and diphther ia toxoids, adsorbed, preservative free, for adult use (2 Lf of tetanus toxoid and 2 Lf of diphtheria toxoid) Venessa Riggins RN [facility] Work Phone: 08-07-2011 influenza virus vaccine, unspecified formulation Venessa Riggins RN [facility] Work Phone: Payers Date Payer Category Payer Unknown [id number] 2023 Medicare [id number] 2023 Self-pay 2023 Medicare [employer] [facility] [id number] 2023-Present [phone] [address] [place] [address] O [id number] 1940 Unknown [id number] 2.16.840.1.706991.3.579.2.125 9 1940 Unknown [id number] 2.16.840.1.381532.3.579.2.125 9 1940 Unknown [id number] 2.16.840.1.273762.3.579.2.125 9 1940 Unknown [id number] 2.16.840.1.555414.3.579.2.125 9 1942 Unknown [id number] 2.16.840.1.396849.3.579.2.125 9 1942 Unknown [id number] 2.16.840.1.709623.3.579.2.72 1940 Unknown [id number] 2.16.840.1.160494.3.579.2.72 1942 Unknown [id number] 2.16.840.1.594757.3.579.2.72 1942 Unknown [id number] 2.16.840.1.910452.3.579.2.72 1942 Unknown [id number] 2.16.840.1.819081.3.579.2.72 1942 Unknown [id number] 2.16.840.1.769998.3.579.2.72 1942 Unknown [id number] 2.16.840.1.214227.3.579.2.72 1942 Unknown [id number] 2.16.840.1.085800.3.579.2.72 1942 Unknown [id number] 2.16.840.1.030699.3.579.2.72 1942 Unknown [id number] 2.16.840.1.209065.3.579.2.72 1942 Unknown [id number] 2.16.840.1.207067.3.579.2.72 1942 Unknown [id number] 2.16.840.1.665603.3.579.2.727 1942 Unknown [id number] 2.16.840.1.178298.3.579.2.72 1942 Unknown [id number] 2.16.840.1.225053.3.579.2.72 1942 Unknown [id number] 2.16.840.1.338121.3.579.2. 1942 Unknown [id number] 2.16.840.1.231157.3.579.2. 1942 Unknown [id number] 2.16.840.1.434244.3.579.2. 1942 Unknown [id number] 2.16.840.1.856290.3.579.2. 1942 Unknown [id number] 2.16840.1.360036.3.579.2 1942 Unknown [id number] 2.16840.1.205716.3.579.2. 1942 Unknown [id number] 2.16.840.1.271663.3.579.2 1942 Unknown [id number] 2.16.840.1.800924.3.579.2 1942 Unknown [id number] 2.16.840.1.449206.3.579.2 1942 Unknown [id number] 2.16.840.1.108182.3.579.2.727 Medicare [id number] 2.16.840.1.039353.19 Unknown [id number] 2.16.840.1.311021.3.579.2.531 Unknown [id number] 2.16.840.1.018130.3.579.2.531 Social History Date Type Detail Facility Sex Assigned At [facility] Start: 12-01-2023 End: 06-11-2024 Tobacco smoking status NHIS Never smoked tobacco [facility] Start: 06-28-2022 Alcohol intake Current drinke r of alcohol (finding) [facility] Start: 06-28-2022 Alcohol intake [facility] Start: 1940 Sex Assigned At Not on file C [facility] Tobacco smoking status Never [facility] [place] Medical Equipment Procedure Code Equipment Code Equipment Origin al Text Equipment Identifier Dates Test blood sugar(s) 2 times daily. Dx: non. Insulin: No dx 250.00 Start: 08-24-2013 Comment on above: Test blood sugar(s) 2 times daily. Dx: non. Insulin: No dx 250.00 Functional Status Date Assessment Result Facility 06-11-2024 Functional Status N/A [facility] 05-30-2024 Functional Status No [facility] 04-20-2024 Functional Status N/A [facility] 03-06-2024 Functional Status No [facility] Clinical Notes 03-10-2010 to 05-01-2024 Note Date & Type Note Facility 05-01-2024 Note Echocardiology Procedure Exam Date/Time Accession # Ordering Echo Transthoracic 05/01/2024 15:00 EDT [id number] Kashif Barnett MD Complete CPT code 06800 13291 Reason for Exam (Echo Transthoracic Complete) AFIB, Syncope R55;Other (please specify) Report Version: 1 Study ID: [id number] [facility] [address] [place] [address] Adult Echocardiogram Report Name: DARIEL ZABALA Study Date: 05/01/2024, 2: 02 PM Patient Location: [facility] : 1940 (MM/DD/YYYY) Gender: Male Age: 84 Years Height: 177.8 cm BP: 143 / 76 mmHg Weight: 82.555 kg HR: 79 bpm BSA: 2.01 m? Ordering Physician: Kashif Barnett Referring Physician: Kashif Barnett Performed By: Elsa Cruz SHIRA Reason For Study: AFIB, Syncope History: Syncope, AFIB, ASCVD, DM Interpretation Summary Ejection Fraction = 60-65%. Normal LV size and systolic function. Borderline mildly dilated RV with normal function. Biatrial enlargement. Afib, cannot assess diastology. Moderate TR. Normal estimated PA pressure. Mildly dilated ascending aorta. Procedure A complete two-dimensional transthoracic echocardiogram was performed (2D, M-mode, spectral and color flow Doppler). Study quality [...] ap2: 6.9 cm Electronically signed by: Jason Vauhgn MD 05/01/2024, 3: 22 PM FINAL REPORT Dictated: 05/01/2024 2:02 pm Jason Vaughn MD Signed (Electronic Signature): 05/01/2024 3:22 pm Signed by: Jason Vaughn MD Transcribed by: [facility] Technologist: ILSA [facility] 03-26-2024 Hospital Discharg e instructions Patient Education 03/26/2024 14:02:11 Post Op Patient Instructions - FT (CUSTOM) 03/20/2024 17:16:58 Trigger Finger Trigger Finger Trigger finger, also called stenosing [...] you more likely to develop this condition: Doing activities that require a strong perfect binder operator. Having rheumatoid arthritis, gout, or diabetes. Being [age] years old. Being female. What are the signs or symptoms? Symptoms of this condition include: Pain when bending or straightening your finger. Tenderness or swelling where your finger attaches to the palm of your hand. A lump in the palm of your hand or on the inside of your finger. Hearing a noise like a pop or a snap when you try to straighten your finger. Feeling a catching or locking sensation when you try to straighten your finger. Being unable to straighten your finger. How is this diagnosed? This condition is diagnosed based on your symptoms and a physical exam. How is this treated? This condition may be treated by: Resting your finger and avoiding activities that make symptoms worse. Wearing a finger splint to keep your finger extended. Taking NSAIDs, such as ibuprofen, to relieve pain and swelling. Doing gentle exercises to stretch the finger as told by your health care provider. Having medicine that reduces swelling and inflammation (steroids) injected into the tendon sheath. Injections may need to be repeated. Having surgery to open the tendon sheath. This may be done if other treatments do not work and you cannot straighten your finger. You may need physical therapy after surgery. Follow these instructions at home: If you have a splint: Wear the splint as told by your health care provider. Remove it only as told by your health care provider. Loosen it if your fingers tingle, become numb, or turn cold and blue. Keep it clean. If the splint is not waterproof: ?Do not let it get wet. ?Cover it with a watertight covering when you take a bath or shower. Managing pain, stiffness, and swelling If directed, apply heat to the affected area as often as told by your health care provider. Use the heat source that your health care provider recommends, such as a moist heat pack or a heating pad. Place a towel between your skin and the heat source. Leave the heat on for 20 30 minutes. Remove the heat if your skin turns bright red. This is especially important if you are unable to feel pain, heat, or cold. You may have a greater risk of getting burned. If directed, put ice on the painful area. To do this: If you have a removable splint, remove it as told by your health care provider. Put ice in a plastic bag. Place a towel between your skin and the bag or between your splint and the bag. Leave the ice on for 20 minutes, 2 3 times a day. Activity Rest your finger as told by your health care provider. Avoid activities that make the pain worse. Return to your normal activities as told by your health care provider. Ask your health care provider what activities are safe for you. Do exercises as told by your health care provider. Ask your health care provider when it is safe to drive if you have a splint on your hand. General instructions Take qwar-ujs-hlfkyoj and prescription medicines only as told by your health care provider. Keep all follow-up visits as told by your health care provider. This is important. Contact a health care provider if: Your symptoms are not improving with home care. Summary Trigger finger, also called stenosing tenosynovitis, causes your finger to get stuck in a bent position. This can make it difficult and painful to straighten your finger. This condition develops when a finger tendon or tendon sheath thickens. Treatment may include resting your finger, wearing a splint, and taking medicines. In severe cases, surgery to open the tendon sheath may be needed. This information is not intended to replace advice given to you by your health care provider. Make sure you discuss any questions you have with your health care provider. Document Revised: 03/17/2020 Document Reviewed: 03/17/2020 [employer] Patient Education 2022 [employer]. Follow Up Care 03/01/2024 15:40:29 With:GORDO Weller Address: [address] [place] [address] [facility] (1) When:04/04/2024 10:15:00 Comments:Keep scheduled appointment [facility] 03-20-2024 Note [id number] [facility] 11-18-2023 Evaluation note Encounter Date Diagnosis Assessment [...] sodium level at upcoming appt in January [facility] Other 12-20-2023 Evaluation note* Encounter Date Diagnosis [...] further dizziness symptoms would recommend f/u with manager marketing as well. [facility] Other 11-17-2023 Evaluation note* Encounter Date Diagnosis Assessment Notes Treatment Notes Treatment Clinical Notes Sep, Type 2 diabetes mellitus (ICD-10 - E11.9) [facility] Other 11-17-2023 Miscellaneous Notes* Telephone Encounter - Venessa Riggins RN - 09/30/2023 12:29 PM EST Called patient back and reviewed plan from his call with Nurse Zigzagger at 11:36 AM. See my note Patient [...] have any questions, you can call Nurse nurse consultant back. * Telephone Encounter - Venessa Riggins RN - 09/30/2023 11:36 AM EST Patient calling with request for physician referral: Patient referred to nephrology and primary care Department. Patient denies any new or worsening symptoms of which a provider is not aware: Yes. Patient was discharged from [facility] on 08/26 for low sodium and said he was referred to akikierraey specialist. He has non [facility] nephrology appt [...] appt center and then call dropped. My [employer] and [employer] lost connection. NOC closing was given GO TO THE EMERGENCY ROOM OR CALL 911 IF: * You develop any new symptoms * Your condition worsens * You are concerned or anxious about your condition for any other reason. If you have any questions, you can call Nurse nurse consultant back. [facility]* Encounter Date Diagnosis Assessment Notes Treatment Notes Treatment Clinical Notes Sep, Hyponatremia (ICD-10 - E87.1) Recent sodium 136 at low end of normal, given significance of symptoms and recommendation of hospital for f/u will refer to nephrology patient requesting [place] Sep, Anticoagulant long-term use (ICD-10 - Z79.01) Follows with INR clinic through [facility]. Sep, Atrial fibrillation (ICD-10 - I48.91) Appears in NSR today, anticoagulated on Warfarin Sep, Hypothyroidism (ICD-10 - E03.9) Recent TFTs in normal range, clinically euthyroid, continue current dose of LT4 Sep, Type 2 diabetes mellitus (ICD-10 - E11.9) Recent a1c in good range at 5.6%, continue current dose of glimepiride. Sep, Immunization due (ICD-10 - Z23) [facility] Other 10-16-2023 Evaluation note* Encounter Date Diagnosis Assessment Notes Treatment Notes Treatment Clinical Notes Aug, Hyponatremia (ICD-10 - E87.1) [facility] Other 08-03-2023 Evaluation note* Encounter Date Diagnosis Assessment Notes Treatment Notes Treatment Clinical Notes Jun, Atrial fibrillation (ICD-10 - I48.91) Rate controlled, mild bradycardia but asymptomatic. Will continue current dose of atenolol. He is anticoagulated on Coumadin with goal INR 2-3, he is due for INR check. 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 Recommend daily use of lotion Jun, Hypothyroidism (ICD-10 - E03.9) Due for TFTs prior to next visit Jun, Type 2 diabetes mellitus (ICD-10 - E11.9) Due for a1c prior to next visit Jun, BPH (benign prostatic hyperplasia) (ICD-10 - N40.0) [facility] Other 08-03-2023 Reason for referral (narrative)* Reason Medication managemen t through [facility] - Coumadin management with INR goal 2-3 Diagnosis 1 Anticoagulant long-t erm use (Z79.01) Referral Organization [facility] Family Rodo John Referring Provider First Name Jada Referring Provider Last Name Edgard Referring Provider Specialty [facility] Referred Organization [facility] Referred Address [address], [place],[address] Referred Provider Specialty Milvia felix Referral Priority Routine General Notes Gabrielle Reid 01/2023 01:34:29 PM >this is an order not a referral, clinical informed and will fax order over for standing order INR to [facility] Reason * FU 06/29 CALL he aring loss, issue with hearing aids Diagnosis 1 Hearing loss (H91.90 ) Referral Organization [facility] Family Rodo John Referring Provider First Name Jada Referring Provider Last Name Edgard Referring Provider Specialty Family [facility] Referred Organization [facility] Referred Address ,[place], [place],[address] Referred Provider Specialty Audiologists Referral Priority Routine General Notes Gabrielle Reid 01/2023 01:28:34 PM >referral received and faxed [facility] Other 04-27-2010 History of Past illness Narrative* Problem Noted Date Diagnosed Date Resolved Date Myalgia 03/10/2010 03/01/2011 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 and other lower urinary tract symptoms (LUTS) 08/11/2006 01/11/2013 Elevated prostate specific antigen (PSA) 03/07/2012 documented as of this encounter (statuses as of 09/30/2023) [facility] No data available for this section [facility] Future Appointments Appointment Date:03/08/2024 01:00:00 PM Scheduled Provider:Kylah Garcia MD [facility]: Open Appointment Date:03/26/2024 01:45:00 PM Scheduled Provider: [facility] Appointment Type:Surgery FT Appointment Date:05/01/2024 09:00:00 AM Scheduled Provider: [facility] Type: Lab Draw Appointment Date:05/03/2024 08:00:00 AM Scheduled Provider: Location:[facility] Appointment Type:FM Medicare Wellness Subsequent Appointment Date:05/03/2024 09:00:00 AM Scheduled Provider:Kylah Garcia MD [facility] Type: Open Future Scheduled Tests Laboratory* PSA Screen, Total 02/02/24 * CBC w/ Auto Diff 02/02/24 * Comprehensive Metabolic Panel 02/02/24 * Lipid [facility] Future Appointments Appointment Date:05/01/2024 09:00:00 AM Scheduled Provider: [facility] Type: Lab Draw Appointment Date:05/03/2024 08:00:00 AM Scheduled Provider: [facility] App[facility] Type: Medicare Wellness Subsequent Appointment Date:05/03/2024 09:00:00 AM Scheduled Provider:Kylah Garcia MD Location:[facility] Appointment Type: Open Future Scheduled Tests Laboratory* PSA Screen, Total 02/02/24 * CBC w/ Auto Diff 02/02/24 * Comprehensive Metabolic Panel 02/02/24 * Lipid Panel 02/02/24 [facility] Future Appointments Appointment Date:05/01/2024 09:00:00 AM Scheduled Provider: Location:[facility] Appointment Type: Lab Draw Appointment Date:05/03/2024 08:00:00 AM Scheduled Provider: Location:[facility] Appointment Type: Medicare Wellness Subsequent Appointment Date:05/03/2024 09:00:00 AM Scheduled Provider:Kylah Garcia MD Location:[facility] Appointment Type: Open Appointment Date:05/25/2024 01:00:00 PM Scheduled Provider:Kashif Barnett MD [facility] Appoint[facility] Type:Cardiology Follow Up (FT) Future Scheduled Tests Laboratory* PSA Screen, Total 02/02/24 * CBC w/ Auto Diff 02/02/24 * Comprehensive Metabolic Panel 02/02/24 * Lipid Panel 02/02/24 Radiology* Echo Transthoracic Complete 04/20/24 [facility] Future Appointments Appointment Date:05/03/2024 08:00:00 AM Scheduled Provider: Location:[facility] Appointment Type: Medicare Wellness Subsequent Appointment Date:05/03/2024 09:00:00 AM Scheduled Provider:Kylah Garcia MD Location:[facility] Appointment Type: Open Appointment Date:05/21/2024 10:00:00 AM Scheduled Provider: [facility] Type:CV Holter/Event (FT) Appointment Date:05/25/2024 01:00:00 PM Scheduled Provider:Kashif Barnett MD [facility] Type:Cardiology Follow Up (FT) [facility] Future Appointments Appointment Date:05/30/2024 03:45:00 PM Scheduled Provider:Kashif Barnett MD [facility] Type:Cardiology Follow Up (FT) Appointment Date:11/01/2024 09:15:00 AM Scheduled Provider:Kylah Garcia MD Location:[facility] Appointment Type: Open Appointment Date:05/02/2025 08:00:00 AM Scheduled Provider: Location:[facility] Appointment Type:FM Medicare Wellness [facility] Future Appointments Appointment Date:08/31/2024 01:00:00 PM Scheduled Provider:Kashif Barnett MD [facility] Appointment Type:Cardiology Follow Up (FT) Appointment Date:11/01/2024 09:15:00 AM Scheduled Provider:Kylah Garcia MD [facility] Type: Open Appointment Date:05/02/2025 08:00:00 AM Scheduled Provider: Location:[facility] Appointment Type:FM Medicare Wellness [facility] Future App[facility]ments Appointment Date:11/01/2024 09:15:00 AM Scheduled Provider:Kylah Garcia MD Location:[facility] Appointment Type:FM Open Appointment Date:12/11/2024 01:00:00 PM Scheduled Provider:Dixon Dubose PA-C [facility] Type:Cardiology Follow Up (FT) Appointment Date:05/02/2025 08:00:00 AM Scheduled Provider: Location:[facility] Appointment Type:FM Medicare Wellness Subsequent [facility] Evaluation noteNo Information[facility] [employer] Other Hisgsop general Narrative - Reported* Type Description Date Medical History type 2 diabetes Medical History hypothyroid Medical History Afib Surgical History multiple neck sx Surgical History tonsillectomy Surgical History adenoidectomy Surgical History MAU cataract Hospitalization History see above [employer] [employer] Other Hiszrvf general Narrative - Reported* Type Description Date Medical History type 2 diabetes Medical History hypothyroid Medical History Afib Surgical History multiple neck sx Surgical History tonsillectomy Surgical History adenoidectomy Surgical History MAU cataract Hospitalization History see above Hospitalization History low [facility]2023 [facility] Other History general Narrative - Reported* Type [...] 2 DM, generalized weakness hypomagnesiema, RADHA 11/13/23-11/15/23 [facility] Other Hospital Discharge instructions No data available for this section [facility] No data available for this section [facility] Summary Purpose Family History No Family History Records FoundNo Family History Records Found No data available for this section No data available for this section No data available for this section No data available for this section No data available for this section No data available for this section No Family History Records FoundNo Family History Records FoundNo Family History Records FoundNo Family History Records Found No data available for this section No data available for this section No data available for this section No Family History Records FoundNo Family History Records FoundNo Family History Records Found Advance Directives No Advanced Directives Records FoundNo Advanced Directives Records FoundNo Advanced Directives Records FoundNo Advanced Directives Records FoundNo Advanced Directives Records FoundNo Advanced Directives Records FoundNo Advanced Directives Records FoundNo Advanced Directives Records FoundNo Advanced Directives Records Found Reason for Referral Reason * FU 09/28 follow up hospitalization for symptomatic hyponatremia, [facility] [place] Dr. Lara [phone], fax [phone] Diagnosis 1 Hyponatremia (E87.1) Referral Organization [facility] Family Rodo John Referring Provider First Name Jada Referring Provider Last Name Edgard Referring Provider Specialty [facility] Referred Organization [facility] Referred Provider Romeo Lara Referred Address [address] [place] [id number] Referred Provider Specialty Internal Med icine Referral Priority Routine General Notes Gabrielle Reid 06/2023 01:35:25 PM > referral received and faxed Clinical Notes [facility] [place] Dr. Lara ph [phone], fax [phone] Reason hyponatremia, recent hospitalization [facility] for hyponatremia Diagnosis 1 Hyponatremia (E87.1) Referral Organization [facility] Rodo tonny John Referring Provider First Name Jada Referring Provider Last Name Rene Referring Provider Specialty [facility] Referred Organization [facility] Referred Address [address] [place], [place],[address] Referred Provider Specialty Nephrology Referral Priority Routine Additional Source Comments (unrecognized sect ion and content) No Status Records FoundNo Status Records FoundNo Status Records FoundNo Status Records FoundNo Status Records FoundNo Status Records FoundNo Status Records FoundNo Status Records FoundNo Status Records Found INFORMATION SOURCE (unrecogn ized section and content) DATE CREATED AUTHOR 06/03/2020 [facility] DATE CREATED AUTHOR AUTHOR'S ORGANIZ ATION 11/10/2023 [facility] DATE CREATED AUTHOR AUTHOR'S ORGANIZ ATION 05/03/2024 [facility] DATE CREATED AUTHOR AUTHOR'S ORGANIZ ATION 06/22/2024 [facility] EPIC DATE CREATED AUTHOR AUTHOR'S ORGANIZ ATION 07/01/2024 [facility] DATE CREATED AUTHOR AUTHOR'S ORGANIZ ATION 08/11/2024 [facility] REASON FOR VISIT (unrecogniz ed section and content) Reason Comments Refill Request Source Comments (unrecognize d section and content) In the event this informatio n is protected by the Federal Confidentiality of Alcohol and Drug Abuse Patient Records regulations: The Federal rules restrict any use of the information to criminally investigate or prosecute any alcohol or drug abuse patient.[facility] Care team informatio n (unrecognized section and content) Personnel Name: Kylah Garcia MD Address: Address: [address] Personnel Name: Kylah Garcia MD Address: Address: [facility] [place] [address] Personnel Name: Kylah Garcia MD Address: Address: [facility] [place] [address] Personnel Name: Kylah Garcia MD Address: Address: [address] [place] [address] Personnel Name: Kylah Garcia MD Address: Address: [facility] [place] [address] Personnel Name: Kylah Garcia MD Address: Address: [facility] [place] Personnel Name: Kylah Garcia MD Address: Address: [facility] [place] [address] Personnel Name: Kylah Garcia MD Address: Address: [address] [place] [address] Personnel Name: Kylah Garcia MD Address: Address: [address] [place], [place] [address] [address] FOR RECORDS PERTAINING TO PATIENTS WHO ARE [...] BE BASED ON THE PRIMARY CLINICAL RECORDS. [facility] [employer] [facility]. provides no warranty or guarantee of the accuracy or completeness of information in this document.
--- NOTE | 2024-08-13 13:53 | P.CN_ITS ---
Consult Note: HPI Data of Consult Patient: new to practice Consult date: 08/13/24 Requesting Physician: Nathaniel Bonilla MD Primary Care Provider: KYLAH GARCIA Consult Narrative Reason for consult: low back, right thoracic pain Narrative: 84yom who presents for evaluation. longstanding low back pain history. recently was in ER for this and underwent lumbar XR, which is significant for severe facet arthropathy in lumbar spine. a few days ago, patient had fall at home and hit the right side of midback against fireplace. has had significant pain since. has not had imaging of this. has tried mdp and tizanidine. mdp helped, but no significant improvement with tizanidine. has engaged in a series of provider d irected home exercises >6 weeks, without lasting benefit. cc:: CC: Nathaniel Bonilla MD Review of Systems ROS Status of ROS 10 or more systems reviewed and unremark able except as noted in history and below [facility] Medical History (Updated 08/13/24 @ 13:56 by Nathaniel Bonilla MD) Hyponatremia ?E87.1 - Hypo-osmolality and hyponatremia (ICD-10) Hypomagnesemia ?E83.42 - Hypomagnesemia (ICD-10) RADHA (acute kidney injury) ?N17.9 - Acute kidney failure, unspecified (ICD-10) Paroxysmal atrial fibrillation ?I48.0 - Paroxysmal atrial fibrillation (ICD-10) Type 2 diabetes mellitus with hyperglycemia ?E11.65 - Type 2 diabetes mellitus with hyperglycemia (ICD-10) Influenza ?J11.1 - Influenza due to unidentified influenza virus with other respiratory manifestations (ICD-10) Hypomagnesemia ?E83.42 - Hypomagnesemia (ICD-10) Acute hyponatremia ?E87.1 - Hypo-osmolality and hyponatremia (ICD-10) Acute confusion ?R41.0 - Disorientation, unspecified (ICD-10) Diabetes ?E11.9 - Type 2 diabetes mellitus without complications (ICD-10) High cholesterol ?E78.00 - Pure hypercholesterolemia, unspecified (ICD-10) Atrial fibrillation ?I48.91 - Unspecified atrial fibrillation (ICD-10) Family History Father Family history of myocardial infarction Family history of hypertension Mother Family history of cancer Family history of diabetes mellitus Social History Within the past year, how often did you have a drink containing alcohol: 2-4 times a month Smoking status: Never smoker Highest level of school completed/degree received: high school graduate Gender Identity: male Meds Home Medications and Allergies Home Medications ?Medication ?Instructions ?Recorded ?Confirmed ?Type glimepiride 2 mg tablet 2 mg PO DAILY 08/21/23 03/10/24 History levothyroxine 25 mcg tablet 25 mcg PO QAM 08/21/23 03/10/24 History meloxicam 15 mg tablet 15 mg PO DAILY 08/21/23 03/10/24 History omeprazole 40 mg capsule,delayed 40 mg PO DAILY 08/21/23 03/10/24 History release pravastatin 40 mg tablet 40 mg PO DAILY 08/21/23 03/10/24 History sildenafil 100 mg tablet 100 mg PO DAILY PRN sexual activity 08/21/23 03/10/24 History tamsulosin 0.4 mg capsule 0.4 mg PO DAILY 08/21/23 03/10/24 History warfarin 5 mg tablet (Jantoven) 5 mg PO MOWEFR 08/21/23 03/10/24 History warfarin 2.5 mg tablet (Jantoven) 2.5 mg PO .4 days a week 08/22/23 03/10/24 History finasteride 5 mg tablet 5 mg PO .qd 11/13/23 03/10/24 History atenolol 25 mg tablet 25 mg PO BID #60 tabs 11/15/23 03/10/24 Rx sodium chloride 1,000 mg soluble 1,000 mg PO TID #90 tabs 11/15/23 03/10/24 Rx tablet ondansetron 4 mg disintegrating 4 mg PO Q4H PRN nausea and 03/10/24 Rx tablet vomiting 3 days #6 tabs methocarbamol 750 mg tablet 750 mg PO TID PRN pain #20 tabs 07/14/24 Rx Allergies Allergy/AdvReac Type Severity Reaction Status Date / Time No Known Drug Allergies Allergy Verified 08/21/23 15:00 Exam Narrative Exam Narrative: Psych-alert and oriented x 3. Attentive and appropriate, constitutionally normal, displays normal mood and affect per situation.? There are no obvious deficits in memory, reasoning, or intellect.? Skin-no obvious rashes, bruising, erythema noted to the patient's area of pain. Extremities- extremities are warm with minimal edema and palpable pulses. Lumbar-no significant tenderness to palpation noted in the lumbar spine and para spinal musculature.? Pain is elicited with extension, and lateral rotation of the lumbar spine. Range of motion is slightly diminished with these motions due to pain. Facet loading maneuvers are positive bilaterally and do appear to be concordant with the patient's normal complaints of pain.? Coordination remains intact.? Gait remains non-antalgic. Assessment and Plan Assessment and Plan (1) Lumbar spondylosis: (2) Thoracic back pain: Qualifiers: Chronicity: acute Back pain laterality: right Qualified Code(s): M54.6 - Pain in thoracic spine (3) Low back pain: Qualifiers: Chronicity: chronic Back pain laterality: bilateral Sciatica presence: unspecified whether sciatica present Qualified Code(s): M54.50 - Low back pain, unspecified; G89.29 - Other chronic pain Plan 84yom who presents for evaluation. failed conservative measures, as noted. imaging reviewed, as noted. in terms of midback pain after fall, he is very tender to palpation in right side of thoracic back. will have him undergo right rib and thoracic spine xr. he is in agreement. depending on imaging, discussed that he could potentially benefit from right intercostal nerve blocks vs. lumbar medial branch blocks. meds reviewed. will have him discontinue tizanidine and trial flexeril 10mg tid prn. follow up after imaging complete.
== END 2024-08-13 12:21 | disposition home or self-care (01) ==
PROVIDERS: PCP Family Medicine; Visit Provider Anesthesiology
DX: M47.816 Spondylosis without myelopathy or radiculopathy, lumbar region (principal); M54.6 Pain in thoracic spine; M54.50 Low back pain, unspecified; G89.29 Other chronic pain
CPT/HCPCS: G0463

== ENCOUNTER 2024-08-13 14:07 | Outpatient (OUT) | payer OTHER, SELFPAY ==
--- OUTSIDE RECORDS SUMMARY | 2024-08-13 14:21 | XMS_ITS | CCD ---
Author Organization [facility] CliniSyil Care Team Providers Care Tissue Inserter Name Role Phone Jada Rene Unavailable Unavailable [...] Medication Allergies] Propensity to adverse reactions (disorder) [facility] Repository Medications Current Medications Medication Drug Class(es) Dates Sig (Normalized) Sig (Original) acetaminophen 325 mg / HYDROcodone bitartrate 5 mg oral tablet (1 source) Opioid Agonist Start: 03-20-2024 take 1 tablet by mouth every four hours as needed for pain [place] 325 mg-5 mg oral tablet See Instructions, for pain, 10 tab(s), Refill(s) 0, 1 tab(s) Oral q4hr PRN Pain. Duration 7 [address] [facility]acy #[id number], 180.5, cm, 03/20/24 15:05:00 EDT, Height/Length Dosing, 82.5, kg, 03/20/24 15:05:00 EDT, Weight Dosing Start Date: 03/20/24 Status: Ordered atenolol 25 mg oral tablet (20 sources) beta-Adrenergic Dimitris Start: 04-20-2024 atenolol 25 mg Tab See Instructions, take 1/2 tab daily, # 30 tab(s), Refills(s) 5, Pharmacy: [facility]/pharmacy #[id number], 180, cm, 04/20/24 13:27:00 EDT, Height/Length Dosing, 82.2, kg, 04/20/24 13:27:00 EDT, Weight Dosing Start Date: 04/20/24 Status: Ordered Start: 02-22-2024 take 1 tablet by alyssa once daily atenolol 25 mg Tab 25 mg = 1 tab(s), Oral, Daily, # 90 tab(s), Refills(s) 0, Pharmacy: [facility], 178.2, cm, 02/02/24 10:29:00 [...] Daily, # 90 tab(s), Refills(s) 1, Pharmacy: [facility], 180, cm, 04/20/24 13:27:00 EDT, Height/Length Dosing, 82.2, kg, 04/20/24 13:27:00 EDT, Weight Dosing Start Date: 04/30/24 Status: Ordered Start: 01-18-2024 take 1 tablet by alyssa th once daily finasteride 5 mg Tab 5 mg = 1 tab(s), Oral, Daily, # 90 tab(s), Refills(s) 0, Pharmacy: [facility], 178.2, cm, 12/01/23 13:40:00 [...] Daily, # 90 cap(s), Refills(s) 0, Pharmacy: [facility], 178.2, cm, 02/02/24 10:29:00 [...] Daily, # 90 tab(s), Refills(s) 1, Pharmacy: [facility], 178.2, cm, 02/02/24 10:29:00 [...] stomach, # 90 tab(s), Refills(s) 1, Pharmacy: [facility], 178.2, cm, 02/02/24 10:29:00 [...] Daily, # 90 cap(s), Refills(s) 0, Pharmacy: [facility], 178.2, cm, 02/02/24 10:29:00 [...] DAILY, # 90 tab(s), Refills(s) 0, Pharmacy: [facility], 178, cm, 05/30/24 13:34:00 EDT, Height/Length Dosing, 80.2, kg, 05/30/24 13:34:00 EDT, Weight Dosing Start Date: 06/05/24 Status: Ordered Start: 02-22-2024 take 1 tablet by alyssa th once daily pravastatin 40 mg Tab 40 mg = 1 tab(s), Oral, Daily, # 90 tab(s), Refills(s) 0, Pharmacy: [facility], 178.2, cm, 02/02/24 10:29:00 [...] activity, # 5 tab(s), Refills(s) 0, Pharmacy: [facility], 178.2, cm, 02/02/24 10:29:00 EDT, Height/Length Dosing, 84.1, kg, 02/02/24 10:29:00 EDT, Weight Dosing Start Date: 02/02/24 Status: Ordered take 1 tablet by [facility] every twenty-four hours Sildenafil Citrate 100 [...] DAY, # 90 tab(s), Refills(s) 2, Pharmacy: [facility]/pharmacy #[id number], 180.5, cm, 03/20/24 15:05:00 EDT, Height/Length Dosing, 82.5, kg, 03/20/24 15:05:00 EDT, Weight Dosing Start Date: 04/05/24 Status: Ordered Start: 12-23-2023 take 1 tablet by [facility] twice daily Sodium Chloride 1 g oral tablet See Instructions, TAKE 1 TABLET BY MOUTH TWICE DAY, # 90 tab(s), Refills(s) 2, Pharmacy: [facility], 178.2, cm, 12/01/23 13:40:00 EST, Height/Length Dosing, 85.5, kg, 12/01/23 13:40:00 EST, Weight Dosing Start Date: 12/23/23 Status: Ordered take 1 tablet by [facility] three times daily Sodium Chloride 1000 MG 1 tablet Orally Three times a day Active tamsulosin hydrochloride 0.4 mg oral capsule (20 sources) alpha-Adrenergic Dimitris Start: 02-22-2024 take 1 capsule by mouth once daily tamsulosin 0.4 mg Cap 0.4 mg = 1 cap(s), Oral, Daily, # 90 cap(s), Refills(s) 0, Pharmacy: [facility], 178.2, cm, 02/02/24 10:29:00 EDT, Height/Length Dosing, 84.1, kg, 02/02/24 10:29:00 EDT, Weight Dosing Start Date: 02/22/24 Status: Ordered Start: 10-14-2014 take 1 capsule by [facility] once daily tamsulosin 0.4 mg Cap 0.4 mg = 1 cap(s), Oral, Daily, Refills(s) 0 Start Date: 12/01/23 Status: Ordered Comment on above: Take 1 capsule by [facility] daily at bedtime. 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 [facility] Family Medicine Office/Clini c Noteon 08-07-2024 [...] day(s), # 21 tab(s), Refills(s) 0, Pharmacy: [facility]/pharmacy #[id number], 178, cm, 07/31/24 14:02:00 EDT, Height/Length [...] Oral, Daily, 1 refills Flonase 0.05 mg/inh [place], 1 spray(s), Nasal, BID gabapentin 300 mg [...] 1 r (more content not included)... [facility] Comment on above: Result Comment: Elec [...] day(s), # 21 tab(s), Refills(s) 0, Pharmacy: [facility]/pharmacy #[id number], 178, cm, 07/31/24 14:02:00 EDT, Height/Length Dosing, 78.5, kg, 07/31/24 14:02:00 EDT, Weight Dosing tramadol, 50 mg = 1 tab(s), Oral, q4hr, PRN for pain, X 7 day(s), # 21 tab(s), Refills(s) 0, Pharmacy: [facility]/pharmacy #[id number], 178, cm, 07/31/24 14:02:00 EDT, Height/Length [...] Oral, Daily, 1 refills Flonase 0.05 mg/inh [place], 1 spray(s), Nasal, BID gabapentin 300 mg [...] virus vaccine, inactivated 08/02/2014 Recorded Normal [facility] Comment on above: Result Comment: Elec tronically [...] mg Tab) fluticasone nasal (Flonase 0.05 mg/inh [place]) gabapentin (gabapentin 300 mg Cap) glimepiride (glimepiride [...] PM EDT With: Kylah Garcia MD Where: [address] [id number]- 2023 9:15 AM EST With: Kylah Garcia MD Where: [address] [address]- Tuesday 1:00 PM EST With: Dixon Dubose PA-C Where: [facility] 2024 8:00 AM EDT With: Where: [address] [address]- Medications What How Much When Instructions Unchanged [...] Unchanged fluticasone nasal (Flonase 0.05 mg/ inh [place]) 1 Sprays Nasal Inhalation 2 times a [...] choosing us for your care. [facility] Family Medicine Office/Clini c Noteon 07-24-2024 Family Medicine Office/Clinic Note Family Medicine Office/Clinic Note HPI Staff Dariel is an 84 year old male presenting for ER follow up ER followup: Hospital: [place] Visit date: 07/14/24 Symptoms the patient presented [...] patient was under the dosed. Patient stated [place] was helping him more. Patient denies any [...] - Will do Tizanadine - Will do [place] for pain - Follow up in 1 week. - Will send to pain Ordered: [facility] External Ambulatory Referral 2. Inguinal hernia of left side without obstruction or gangrene (K40.90: Unilateral inguinal hernia, without obstruction or gangrene, not specified as recurrent) - Pt cancelled his surgery. - NO pain at this time. - Encouraged follow up Ordered: [facility] External Ambulatory Referral 3. Nonsmoker (Z78.9: Other specified health status) - Please continue to not smoke Ordered: Body Mass Index (BMI) documented 3008F Current tobacco non-user 1036F Depression Screening Negative 3352F [facility] External Ambulatory Referral Most recent diastolic blood [...] q8hr, # 90 tab(s), Refills(s) 1, Pharmacy: [facility]/pharmacy #[id number], 178, cm, 07/24/24 14:57:00 EDT, Height/Length [...] Oral, Daily, 1 refills Flonase 0.05 mg/inh [place], 1 spray(s), Nasal, BID gabapentin 300 mg Cap, 300 mg= 1 cap(s), Oral, Daily, 1 refills glimepiride 2 mg Tab, 2 mg= 1 tab(s), Oral, Daily, 1 refills Jantoven 5 mg oral tablet, 5 mg= 1 tab(s), Oral, Daily levothyroxine 25 mcg (0.025 mg) Tab, 25 mcg= 1 tab(s), Oral, Daily, 1 refills [place] 325 mg-5 mg oral tablet, 1 tab(s), [...] No. [place] (more content not included)... [facility] Comment on above: Result Comment: Elec [...] AM EST With: Kylah Garcia MD Where: [address] [address]- Tuesday 1:00 PM EST With: Dixon Dubose PA-C Where: [facility] 2024 8:00 AM EDT With: Where: [address] [address]- Medications What How Much When Instructions Unchanged [...] choosing us for your care. [facility] Family Medicine Office/Clini c Noteon 07-03-2024 Family [...] BID, 16 gram, Refill(s) 0, each nostril, [facility] #[id number], 178, cm, 07/03/24 10:05:00 EDT, Height/Length Dosing, 80.8, kg, 07/03/24 10:05:00 EDT, Weight Dosing gabapentin, 300 mg = 1 cap(s), Oral, Daily, # 90 cap(s), Refills(s) 1, Pharmacy: [facility], 178, cm, 07/03/24 10:05:00 EDT, Height/Length Dosing, 80.8, kg, 07/03/24 10:05:00 EDT, Weight Dosing omeprazole, 40 mg = 1 cap(s), Oral, Daily, # 90 cap(s), Refills(s) 0, Pharmacy: [facility], 178.2, cm, 02/02/24 10:29:00 EDT, Height/Length Dosing, 84.1, kg, 02/02/24 10:29:00 EDT, Weight Dosing sildenafil, 100 mg = 1 tab(s), Oral, Daily, PRN for erectile dysfunction, 1 hour before sexual activity, # 5 tab(s), Refills(s) 0, Pharmacy: [facility], 178, cm, 07/03/24 10:05:00 EDT, Height/Length Dosing, 80.8, kg, 07/03/24 10:05:00 EDT,... 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 [facility] Comment on above: Result Comment: Elec [...] virus vaccine, inactivated 08/02/2014 Recorded Normal [facility] Comment on above: Result Comment: Elec tronically [...] November and January and was hospitalized in [place] for 2 of those. He states that [...] with voice recognition artificial intelligence software, specifically [employer], [employer] and or [employer]. Substitutions may have occurred due to the inherent limitations of voice recognition and artificial intelligence software. Total time spent pr (more content not included)... [facility] Comment on above: Result Comment: Elec [...] BY: Kashif Barnett MD ca Dictated: 05/27/2024 [id number] Transcribed: 05/28/2024 [facility] Comment on above: Result Comment: Elec tronically Signed By: Ericka COHN, Kashif Craig\.br\Date and Time Signed: 05/29/24 13:13 EDT Coding Summary.on 05-09-2024 Coding Summary. UVSSRyjp92CBr1zXv+P GhlYWQ+EI8NXUEgT37f eVOuzH3vR9MIUDnRSwp gQVBQTElOSyIgbmFtZT 1kaXNjZXJu IC8+XH6eTIXbLonafHE zy8B9bZP7I30eqy5pJP purVO2ZOIbQaYsbxjmn 0qifCg5QLkxHapcLxXy RIYdrB43WXF3iM13Hu9 9eIVpnYWzl5mrrDp0Wg XaABVfYOA2sElzIDmjr 3GzEBOxE07ydFUoq4R6 IGNvbGxhcHNlOyBlbXB 8wK8zBQylcggsq6oert xwVuw8sv45hZSdl5Q1u JB7Q8WmlmC5EYQqqMGy GhqjuXXZnO1zqnuox8p fncrzWuLwESOgHKp6RT u2ZMTcsCkuAfNeRX81Z QV2FWKpckHhU8YuKUQh fVjzNhC3m4S9Vd7ON3F CTwjbO7KWLXCJSXbhwB Q+FJ02eq72H1PaQwthW xr5QJYiVGB1pMY3kZ4h EEZpDXlaf0Q3fTF9B1B tiaBtig8jx3tmULPiDX ewZ49pdHXjd5B5SZNnd UK2JXNmfXlsEcYfhK50 Oyc+FEQbsLgeo3DvMzz ox3srf5pnuCl4RcmeYH YczuQefGklKFY1q4PkJ c1lOTCgxGL7nOC0qI0l IjDiHtM4RCatR519KdA pzQHiEkydN23vU3JupV A+RNMhGfz8BWOpdJfhW X0oI2ExSRDxwtuviVHl mLdgYZ4kJUUdyabwSSE fwE6mUQCmL6k1IvGmBk A8JJsvF2PhWYRtpvlfT v25sY8tDjBhKhA4OYkg T7AvfmE4HEPghZEhDNy dQTA5W42wl1I1MJEnGI EtGDU0oHK1dU1uhEieb jogbGVmdDsgdmVydGlj AZfkCYfpG512SBWymKn nPkNvZGluZyBEYXRlOi AgMDYvMjYvMjAyNDwvd GQ+JYRdSYA7tCcoFDMx iYPyIPmkUa0faWmwdIu yMB0cSBMfxhepCNHyeA 3uUNBghGYvgZshXE6pA QJozyhcj776AoMzFLZ1 KRExfWQaR3XuxA8fJoE rWQPaINUlI0ClpWNhTR urD834XVboAoP1MXIyu uYlY3VeAQPlzYmjJdK6 w3G3Tx4Ve2CrvxlgV7R bsKZuUxQcSvoxOGt6N7 RkPjwvdHI+ZC82XYSxP N07ZDe3DLS4vOhmVIgf FBVkA1OlqG1uChThHQZ kZGRkOyc+PHRhYmxlIH dpZHRoPScxMDAlJyBzd RtuUQ3sMh2bAIItYZUr wVvbiHHfKqVrg2qdXJP bAAbrVJ5jnMriK7TytQ G3IZPek1o3Kl32K50hR 3JvdXA+EQTqxXM4rAR7 xR0yPdEgJxN2IAlbS81 6HwFrgGUcCjbfs2zde7 zljYf9VnC8PYGthbBya CigNWG0r2SuRg86S70z IHdpZHRoPSIxNSUiIHZ njHcbaa4efL0nUq8+PG BcvWE5qDL2iR9mEgNkS xA2HAvaY266VgKhlBIe Vvbsr2sdy0shnGc3CnA qJJQjxbDpxCqyTVB3r8 RyAk98A0DgbYfok7CnV me5su37fGNzj5A4kLY8 Q4XvIUOtcvcvoORgxCg nIW5eJDHghhyvVNVotF 4kOXLfT2y1SjMpJcD6A VhuU2FndoS6ZVMqiUFe KTJrlBCMbZ8okjnwq1b gomasJyYjNFUxQZe9CO l3RKYhcXvhWxIyHFZ3Z dG6VMV9oCSvdX9suRyo wdrbeC5sLzc+WVR1bEY hwDDWHL4dLfozpIG+PH OgKDB6zOjaNZmoSCXvc W6vGSLjZ1u2CcHoPcJ3 KPtmB2HycoI1SSEzaWL gQMKetRVPbA9ucckwl2 trxthlUhBhOMScDGh2Z Cx4PDVfuZpmEkElFLE2 BbF5QHQ8uDYyqJ0ymJl pnsztmW2nUaa+QmlydG faKSJ0PCy2W7VqBqx3S SDysIloTZ2yrIPrZUgc Wx3qlZvwlRpmGV7oZZX ivnufx927DbTyo2flKU BnvUDiENcvHRH9T60jt 8M5WVJfBLKuVOM4wXQ3 bB8ruPlocbgreWJqkEj gdmVydGljYWwtYWxpZ2 56DVMkxOntOvTyISd2E 1PnVzm0YKFxaJqnGO4m aDGrTIcnCp2anIdnrLy wPI6dCUKhbjcme730Ov Avp5fdHCGasMUcBVadR UF1V57dy9I6HCKhKRVp RES2aIK6pN1zpVnmgrv gbGVmdDsgdmVydGljYW cwDFcaR227GONjwWmpW pKpjEg3F1ZyRek8CKCa jTulPB7snUGySMxpNh9 jtZkdeBerGU3rGGLuqh wew293CiSap3tzJHWdc GHcHTjdBCF8A95uk8C1 UGAdQJZzCNI2oTG2hW8 hbGlnbjogbGVmdDsgdm PkyEzlISxfWOgjR750R HRvcDsnPlBhdGllbnQg BVpyVNw8T5UxHyiviPG +OA54INAbHG43iDJogG Nzu9xkhTf3GeZlAAYiU DY0eWswZIrkw4GsPDLx I32tyBBuy3Y8AVZuiXj qrYFyTfBypME0wE8zWP vjhdrvo2cmfphqMsifb 7loav40eD06I64kBYdf ZHRoPSIzMCUiIHZhbGl hpi8ngP3xHw3+PGNvbC A5uYM5gX4qZCRvVzR4X HiqB048McFvuOTsGwaj p1coy3myjTu8LnQ7PGQ efcTebNnlYSC6a8EvBs 79I63aGDguXVJyRFSyJ QWyKANvuHvwly5mcU8t Ii8+ZAIjfPQ1mVY4yU9 mTfMfYhI9BJclG050Wv AfpGGwQkjtN84fV1Xgx XA+EOUuQpj4APVqxGmv CO7jfBJgYCozGf7oIAT 8CeKrBcQtHEjoU5RnLT DhqobahhkapUP1LGJzP VAaqF94Jd7qzJsbBCTm gHWStS3fuvlje1jhpse oBmDnMUKfOUv9DZz2DP PnpSvgXbIzNMB1YbW4G RS0sTGeaE0ouFnybuit tE4zS3NmINVddlxfEg7 3pB1qOmLkJnL6THppHh c+BfHMFbfqQy9JZMJOD G26PW74uWGbl1A3rMM8 K2NdVJJhmssknunzuYG 8DRLlTWRfuR48mBMcGU ycMz1gi5S1s227CKMoA NCxoX41Nh0fbOrgCBKf sQSUpC9wcnycp1qssnr nSpPsNJEqLCd4SVu5EG BgyYeiBtVlOEL1LrL0V KQ6cQBdkK4zfSvbmbga nP2yGdh+MDYvMDkvMTk 0MjwvdGQ+AZYxUWZ7hA avWPqhZLLprR5tWWKdD 9i6QyNwXbO2DJjcJ9Je ICAwhgxvVe70qX8qDjI vGsN4HVmlS4HhqwU9QW YljOIeBOkcGMY4Y98ry 3N0NBHjFSGbNYU7qEA6 oK8kmGcdpdeagKQkoHq gdmVydGljYWwtYWxpZ2 46IHRvcDsnPjgyIFllY BIyCC54NI98gGMvi4S1 zDY0K2WxAIReqehtygt ffWV0IRSwCYBrbX69sO FyRVtjDv8fx9S0i893N HGbADHulP71Ui9kmUor SIXgyAPEpN7foldwl0k splxsGdSzVDQyEGf0MT a9KAOtrHnhRsXhNAL2F hA9SVI5pVDxyY8kpEmt xugptP8mIkc+TWFsZTw vdGQ+DNDgHYR1sUwrIQ nmYLLvgC3oHHBjY1m1Q aUxGmE8QDsrW2RaHJGg sgsmLi01xR4gYaXhRdV 0KPvoF0BfpzQ1FIIosQ AdEAceSSF4F12jp5B2R FRpMQMnMGE9uMM0vQ5u bGlnbjogbGVmdDsgdmV voQfhQOgvUKwfV534XJ UhmCtcVa69aNDlkIdte vJ3P7MdIzeffSO+PC90 IDTrJH95oIUrwRWqc6y yeIj6RoJfEVCxEMV6zQ voXBxdl8YcTNWrT04cr BQml1U7OAMelTuksTUm VxIhdHF2dQ3vTUiruqq vr8qhkllxFihfa0qxmy 36uZ26W53qPNndLXEwT WLqYFJoPDYiwVjdqi2q fW8fQo6+XSZytRG5gOM 4bE3sTlEvGxR3OIdyL4 82TjSlvXEsCrwna8nvh 2vpmIu2WjLsUSUokwAm zAemUIX1u3LdHd97Q55 sIHdpZHRoPSIyMCUiIH IjjOlcgh6psK8gZc3+P G9xs1tynt97uG71sCF+ AENiPGV4qFffJTyqWAI zeZ1oWSrbJiE7OMPmVi TxsC07wDHmBEldGn8se CuflWwcTT2aJQHqvyza z205FnUor5pnFIZadTL fLNrlWPF4B22jh2F5LU BzWYApNWO4aVQ6iM5ls GlnbjogbGVmdDsgdmVy xDdiRDkqHKdeG701EZV xjCfbOnUriSAaK0kyep BPPF1rNcoksKO+PHRkI GS8aYfdWWpvYLUeqJ0h MFXvU7z8KrImCvH0NVj pV9ZdoyR3VNPlqLQwMM OufXLImL0oufxtw7ftg wnsHkDkUBUzIZj7ISi2 UVHdhRqrYnZtOZL1ZzX 2DUA1dICetS8dlAsxwf tqjC7fBtr+RklOOjwvd GQ+IFKqYVW5sLhaJAbz RHLxrE9wRYChB9n4AvC yFaM4XLjkX7RtejO2TT CpbGDhXWCwfSTXpK2xi dagy8ilvaefAtBlBCSr UGj8RSo0BZMqfUwiSxY tHIJ4ZvN2GHH2qJKdwP 5ftVdikrybvF4lKxm+T VJOOjwvdGQ+PHRkIHN0 pBgjJNjkYEFhoU0lAYO fM7j3MaApCeM4OQnvX4 EyzdE0WFAiaRFkYSJxe LDLpP1pzluvl6qxvydr GgTpHVKwFEk8OWn9ABL dyCgzGmFnVPZ5GwK4MY R5yYRkqD5zgAgjtjmxp G9wOyc+PGK9DDW1AD00 DZ74V0QiDrglkIJbvFB +PHRhYmxlIHdpZHRoPS bnHYJwWeWmkOmsKW0mG u9wCXZtRTGffCyfqZJm OpDnj8kwUFJgX (more content not included)... [facility] Coding Summary.on 05-08-2024 Coding Summary. LGIZPswq84ZWp2uIq+P GhlYWQ+EY4AYNOmB06t dHQorM5sW8WPWXiPRdr gQVBQTElOSyIgbmFtZT 1kaXNjZXJu IC8+ZL2jFZLoDegevFO ng8C2pSH7U14bdd9zWF iioRP9HJGxKqVfczpmk 6pfrOn3EUaaSqsnUgGe CMJciG47ZCF3yM89Vl2 5aICxnLNoa3oyyBq1Uq ZaOEYaVKJ9dSonQHsvu 4TsXGFsE26ldQFxq2N1 IGNvbGxhcHNlOyBlbXB 3eU2hXMwpqfqxl2znuc iyKor1qb09dZFcg8D9m PX5Q5VbcjO7CNGzlHRr JvfrdDPTvT9cqhpsx8v mcfduJmIiDKAcDVn4HA l5KRDfcFnoBgZkMF83F JP9ZRVqowZuK1ZqEOUq fVenAwD4r1H2Eo4DS3E LYvnuW0HGTQLTDByxbZ Q+YD96ms56G1UgRbniR sg0YKIxRLK9rWX3wE1g YOHuVHaog1O8vMM1T1K iiwBzlx7ip9tfYUSsXX obY11mmBMho9O7WKDjr VO9NZJooYclGbVzuQ46 Oyc+AOMslKzyj3WzPgx oo8yar5eboOy6LssdVP JgewYdjXxbGKJ5g0TbO a3pBKMhuMO2pFP0gE5t DgIaDzS4XNtgT729IfL dgZRxDvxqP56wB6WliX A+PWSdFfs7UYJyhHypN I9jD9YmQCBicqkcfGFy dShnQB3wPVXiddlgISV vrN8uPOVsA8g1RsJkQx C8BQhcT3PpTLAuvltnU b77tE7sMhPqHzS4ZGnd N7IhonU6CIAfvELfWQk gIPY6P09xn6S1BWIhEA EwECL0lWT7dV5cyXwus jogbGVmdDsgdmVydGlj TDkrLUacU756CVUcyUv nPkNvZGluZyBEYXRlOi AgMDYvMjUvMjAyNDwvd GQ+YRJlPSB1kMxhYSGj bSOhMNjjEp8rjAknmRu rBU6cHLIjqzzsEPGcyC 6cMVPllIYkvFthJZ3zD MOlkkfuz739YzZiQPP8 DCVvyUJkK2GtzE1kGsX eUTTdMQPkV8YibELoQJ xrK452BLbtIoX3OFTya cCoY5JhRDRrvWsmOaE7 l7B0Ij0Ra9DexgwbQ0X kmQEnQgEvRocdQSi0N1 RkPjwvdHI+LQ44ZBAjJ V57XVl3JBK8vPsqSHad RPQoT3BboK1xGdKpRLZ kZGRkOyc+PHRhYmxlIH dpZHRoPScxMDAlJyBzd TvlJY9yLc7fJJAkKJZt nKsddDHjUgXlt0wjSST uDPgtBH6qwEkyM3WdhB Q1YQXvy2h6Sc55Z45qZ 3JvdXA+YOVtfPW2zQH4 uJ9jMaGpViZ9SYddW08 3ElJipEZeFpruw7lbz8 ofpZo9YxQ4QVAsdsXgk TbgWNB3a7YnYh90Z21k IHdpZHRoPSIxNSUiIHZ wpDcjoe4wpO9cEk1+PG VccKC8iQP2fD4xTnRnQ lU6NZnnI559FzRkuYXl Ronqo3dct1ttyDe6QdJ uVYYfoiAsrKqrUMK6d1 LuPn73V4DtpHwvt9AhL wf4zf71zJQxq9I0oYK9 C9ZaXRAcphtnzHWszXo gYU5xRKHuoqftXNUibX 0aKSYbX0a5JoUwOvC0E XtfP9MemfH3ITGfcYTu IMRzfBXLtY4toohxk3o qnpmjYiFiTQFtOUl9BB u8WANkkLbtPaXpSVK6H eG7PTX0eUFcoV6vhOyp gjudaD2oTkg+HCZ4wNK djHEXGI1wZqtggJO+PH PvITC5wLymAVblDMLpe T7fNGOoA1h6ErGcEpS0 IAfqN7QjztQ8LHDuoOP pIXYloGFLcK7lpqvom2 grnqmeNpKzZKYgFZn6G Mp7IYJaaHxoVpNzOWA5 RzL8HRK8sHLmrX5ygUe ampblnV3xApx+QmlydG hwILO5KVt8H6GaXhw0X QZmsBhdMG3woQAmMXsz Op0gcNzbgVahJZ5xBRX qogqoo989OpHon6wdLY KxaFEhHVrbRTQ9D73hg 1D4YRFzQUBkGXM8wJH0 bJ8hrBnbloowqRYebJl gdmVydGljYWwtYWxpZ2 27DBSgcDzmWdBzMAm1J 6XhSwa6LIWeaLfaDY0a wUKjYGayUz6vyWjnsJb hHY4aUOGwvnzle538Lw Wrf8gzAVOzwUZnZLgeE EL1L66ie1W2MNYxZXJx ZBF4uED2tA5ixMcpfod gbGVmdDsgdmVydGljYW oeJYwtV546PAGtqUsyT xWdeFf8W0LbXvm0XKFi fGzoAH7zaPZoJZacGo1 clUbsfFwlBX3kVHJnjx grn610PcNcn2qhQLIwc GNiGCimGCR8C62vk9E0 XGBnIMHpXNX8cIV8qP3 hbGlnbjogbGVmdDsgdm MzcGhuNJpnNNqwJ199D HRvcDsnPlBhdGllbnQg VNcwNXf5C8BeGdofxTM +RX85ZFGrXF01jTDyrY Lcc4dkfKm1PxZpVJXvJ XW5nVkrYVcps6OnQSBw P09ylASoz5X6YTZhnDk jfSDdUaFvzNZ7dS9kJF xjqyosu6yceelvZcham 2jlbb32sT01Y97yCDdr ZHRoPSIzMCUiIHZhbGl osq5jfO3kJb3+PGNvbC R6nEU3cZ2gECFpBjG3M WwlJ561PiDbgPDbRlhe x9yyl5nswEt1ZbU3VHH sdfNetKscUQS1b7WkKx 38W94wCWxtZQHyASQcN AUeAUWikUqhef6onT0u Ii8+PULasPA6uSH7hP3 pUsEjXhM1FCepQ131Bo GtlXSkGkreA07lN1Lkz XA+FYIrSee7MHLxeTzw WJ2mmZEfDAqlUc1kGPI 4ZuGoNcElRUtoG6ClRZ WydviqfhiyaQF3IBJtH EQmaL15Xh4beHazZEGb kHJPyC8aynjtg3vowpt aFgMaCRMdMWm0PRf9YZ WnkCznXkVjJAZ0NyY5Z OU9uEUszX2eeLrtihku vS0tQ4ObKEWyjcagIo1 5xN8vCgNvYrQ9GJdzNo c+WjFPOswrKl8NMDYNZ U33QI15zJPmt2J0rGA2 R1ThHTRxmfclewngyQJ 9MHRbRTDlkR80eOVuQK usVd1af3T9b753ILXxO RZsxE67Xk7jkCjvECWo kGXMaX5cqhugi5aqulq wPnZtREIrJCo6PXv3PJ CvlIsmSzMyHCA5SnL4P EG6wEOqxY0ezYsirbjc lO2qPte+MDYvMDkvMTk 0MjwvdGQ+QAOvAOI7fQ xfQMoaRRJaaK5aIBEbR 8f6YdKtBaZ4ZOfcE5Cn DZFhaczfQp02iQ7tBnV iUpR5MQnwY1IqsuP7XG IevFVbRHhnJOT3I92yr 6U7DPUjCNEeDGB3wZX3 uP6meCzsbkxkvRHqyDi gdmVydGljYWwtYWxpZ2 46IHRvcDsnPjgyIFllY EKiBZ33UO92sVCiy1Q4 pDL2U6AfVNYwpnxlyrm xuKS2UFZjNNTusT67tM VjCOpuKk8qn6H0y982P EThDNAkkX88Kg8uiHmr YJSyzFZHkI0gibofi7d ijibsDrGgEDRgUIc3TN q8ATUvyAktKlXdHJC1F dZ1FDZ7vUPacH4pbYkw ecyqoD6hKrm+TWFsZTw vdGQ+WEIjRLK7cYphVX qaGTKphN5pVMEtU2k7J uPoReS8GNiqD9GfEJKx otxpHu78yE0wYwRkEyX 4ZQxtQ1XgsoG2VZCmoD VqONpnRBM9F46dx8B1L RGeBIUjHXD5kEZ4tM8i bGlnbjogbGVmdDsgdmV bnTolHIxqAAtfR764AZ CqsRalKhbtKtKZeh6gK G9gIsguoLN+VP40sa24 T6IkZpceTgf2GDGaILJ 9bQL3rK4hCGAuDMvxt6 E8nUB7Q3ZoqjVwwq5gi 3wrBVHrYFwrJ03qvFZf z8A7LSTsiNV7KOMvbUy uStCzxU02Gtw+PGNvbG ucy2CpBlwxu8pqm8eqi Ri6EcAlCBPpiyVviFxe AYD0c9AlLp18T05wJMi pZHRoPSIzMCUiIHZhbG xokm3kyA1gPs4+PGNvb ED0sDY5tO3lXeAbMvX6 YLztD921HnPrmAQbLoj ar3tcl0sitYb7OfXkBQ MfsmOgpFomKJK3w0FfI q87V8RwrXydf9RqXoy1 bm59iSIlp9G3wVU6R4R hZGRpbmctbGVmdDogMC 7pLQSbzfiwAYGfaB3jU KQhS2y6ToXaHrT4EMsh W1TvwiK7IXJehQWxSBJ rfSWAyK3xubygh4dply auTiBbGBJuXXm1YLp4J CIhgYmjTuAeFZZ5SgI6 WQQ0tCWuyQ8jzMbvhqc mdF7fEwf+VVt1q8ewvY RzBI3saGR5KP40AC43e UNkw2E6nRJ4D2ZvQUKx mxiozzhobQV0HOIgCZG mkF21Xx0xxGzvCx9wEQ FvAEB2ZLOdrCZbK5Xfb Y3wVwEyGJIvXPLfZ0Zh uDJoGLvaI093LSrbHfM 9SXZumgDhP6CtBXGbuM neJbQ5b7Z9Ni1HDP32O Y93XP35hRFyb7V1pVW6 Q8OySJHonqzozekeoKB 8HOQbCTHcwA61Ce8csW uaMb1hOQVzHPP0WRCys TZzI6HpbP7qNlDkMNAb BCHcR2OuuYYbBMoyV69 1KRqpXdG2XVXpurEkM3 UyUCZrdOeiXrZ0c2L4P z4OYd10OP97QT04pZNn u5D8fVV9A6MiIIIokzh czvglnQN4EQYxTQAikN 72Lb6glJenQm0qDTXjO KQ6LLXvcVRvL5ZmiJ2d RpByKRBtLJOfW1PotQP gPTrmB153TZzlVjH5HF QocsObZ5FyHTTzvPmoV iF9h5A7Mr1IDBygdde5 S7CvNueebVS+WN71EHP mKL29pYBteQJjq2zodH a9FnMxCVVwLSV6uHagX Wbjf3YhOJMkV30ljRIe i4V3DCBmuZuvw (more content not included)... [facility] Consultation Noteon 05-07-20 Consultation Note [id number] D#[id number] [facility] Ambulatory Visit Summaryon 0 05-03-2024 Ambulatory [...] Kashif Barnett MD Where: [facility] [place] 2023 9:15 AM EST With: Kylah Garcia MD Where: [facility] [place] Normal [address] [place] [address]- \.br\ Medications\.br\ What How Much When Instructions\.br\ [...] to adjust your dosage.\.br\ ? \.br\ Take htfl-bci-dsynllt and prescription medicines only as told by [...] active. Exercise regularly, as told by your [facility] Ambulatory Visit Summary CLIFFORDDARIEL Solitario :1940 Visit [...] Ericka COHN, Kashif Craig Where: [facility] [place] 2023 9:15 AM EST With: Kylah Garcia MD Where: [address] [address]- \.br\ Medications\.br\ What How Much When Instructions\.br\ [...] of cylinders, a pump, and a reservoir. [facility] Medicine Office/Clini c Noteon 05-03-2024 Family Medicine [...] Numeric Rating Pain Score : 5 Bradly MANDOLIN REPAIRERMartha Ottvarinder Nickerson - 05/03/2024 8:01 EDT Hearing [...] 08:24:28 EDT Procedure Dt/Tm: 03/26/2024 ; Location: [facility] ; Anesthesia Minutes: 0 ; Procedure Name: [...] Renetta Abdullahi LPN - 05/03/2024 8:01 EDT [facility] Sexual problems : [...] Depression Screening (more content not included)... [facility] Comment on above: Result Comment: Elec [...] is seeing cardiology and did not tell liability claims manager or myself that he had been taking [...] Daily, # 90 tab(s), Refills(s) 0, Pharmacy: [facility], 178.2, cm, 02/02/24 10:29:00 EDT, Height/Length Dosing, 84.1, kg, 02/02/24 10:29:00 EDT, Weight Dosing sodium chloride, See Instructions, TAKE 1 TABLET BY MOUTH TWICE DAY, # 90 tab(s), Refills(s) 2, Pharmacy: [facility]/pharmacy #[id number], 180.5, cm, 03/20/24 15:05:00 EDT, Height/Length [...] Abuse, 03/06 (more content not included)... [facility] Comment on above: Result Comment: Elec [...] night-lights. ? Place frequently used items in fyxm-ru-qklal places. Lower the shelves around your home [...] the way. ? Do not use floor afghan or wax that makes floors slippery. If [...] include working with a physical therapist or guide dog trainer to improve your strength, balance, and endurance. Where to find more information ? Centers for Disease Control and Prevention, [place]: www.cdc.gov ? National [place] [employer] A[place]: www.kieran.nih.gov Contact a health care [...] health ca (more content not included)... [facility] Patient Education Urology Erectile Dysfunction Erectile [...] these instructions at home: Medicines ? Take rxzj-mjy-tuiahgi and prescription medicines only as told by [...] include cig (more content not included)... [facility] Screenson 05-03-2024 Screens [id number] 2#1.00TIFF [facility] CBC w/ Auto Diffon 4 Basophils/100 WBC (Bld) 0.9 % Normal 0.0-2.0 [facility] Comment on above: Performed By: #### 2 [id number] #### [facility] [address] [place] [address] Basophils/Leukocytes Auto (Bld) [Pure # fraction] 0.0 E9/L Normal 0.0-0.2 [facility] Comment on above: Performed By: #### 2 [id number] #### [facility] [address] [place] [address] Eosinophils (Bld) [#/Vol] 0.1 E9/L Normal 0.0-0.5 [facility] Comment on above: Performed By: #### 2 [id number] #### [facility] [address] [place] [address] Eosinophils/100 WBC (Bld) 2.4 % Normal 0.0-8.0 [facility] Comment on above: Performed By: #### 2 631715 #### [facility] [address] [place] [address] Erythrocyte distribution width (RBC) [Ratio] 14.4 % High 10.9-14.2 [facility] Comment on above: Performed By: #### 2 978749 #### [facility] [address] [place] [address] Hematocrit (Bld) [Volume fraction] 42.2 % Normal 37.7-49.0 [facility] Comment on above: Performed By: #### 2 583502 #### [facility] [address] [place] [address] Hemoglobin (Bld) [Mass/Vol] 14.0 g/dL Normal 13.5-17.5 [facility] Comment on above: Performed By: #### 2 913811 #### [facility] [address] [place] [address] Lymphocytes (Bld) [#/Vol] 1.4 E9/L Normal 1.0-4.0 [facility] Comment on above: Performed By: #### 2 450024 #### [facility] [address] [place] [address] Lymphocytes/100 WBC (Bld) 34.0 % Normal 14.0-50.0 [facility] Comment on above: Performed By: #### 2 961035 #### [facility] [address] [place] [address] MCH (RBC) [Entitic mass] 30.8 pg Normal 27.0-34.0 [facility] Comment on above: Performed By: #### 2 717363 #### [facility] [address] [place] [address] MCHC (RBC) [Mass/Vol] 33.1 g/dL Normal 31.4-36.0 [facility] Comment on above: Performed By: #### 2 532662 #### [facility] [address] [place] [address] MCV (RBC) [Entitic vol] 92.9 fL Normal 80.0-100.0 [facility] Comment on above: Performed By: #### 2 050869 #### [facility] [address] [place] [address] Monocytes (Bld) [#/Vol] 0.4 E9/L Normal 0.2-1.0 [facility] Comment on above: Performed By: #### 2 917686 #### [facility] [address] [place] [address] Neutrophils (Bld) [#/Vol] 2.2 E9/L Normal 2.0-7.5 [facility] Comment on above: Performed By: #### 2 915289 #### [facility] [address] [place] [address] Neutrophils/100 WBC (Bld) 53.4 % Normal 36.0-75.0 [facility] Comment on above: Performed By: #### 2 021933 #### [facility] [address] [place] [address] Platelet 166.0 E9/L Normal 150.0-500.0 [facility] Comment on above: Performed By: #### 2 375498 #### [facility] [address] [place] [address] Platelet mean volume (Bld) [Entitic vol] 9.8 fL Normal 6.4-10.8 [facility] Comment on above: Performed By: #### 2 309168 #### [facility] [address] [place] [address] RBC (Bld) [#/Vol] 4.5 E12/L Normal 4.3-5.9 [facility] Comment on above: Performed By: #### 2 682440 #### [facility] [address] [place] [address] WBC corrected for nucl RBC Auto (Bld) [#/Vol] 4.2 E9/L Normal 4.0-11.0 [facility] Comment on above: Performed By: #### 2 499968 #### [facility] [address] [place] [address] CHEMISTRYOrdered By: SYSTEM SYSTEM on 05-01-2024 Albumin [...] used for this result was chemiluminescence using [employer]'s Access Hybritech PSA reagent. Protein [Mass/Vol] 7.1 [...] 05-01-2024 Albumin [Mass/Vol] 4.2 g/dL Normal 3.3-5.0 [facility] Comment on above: Performed By: #### 2 888287 #### [facility] [address] [place] [address] Albumin/Globulin (S) [Mass conc ratio] 1.4 Normal 1.1-2.2 [facility] Comment on above: Performed By: #### 2 861747 #### [facility] [address] [place] [address] ALP [Catalytic activity/Vol] 83 Int._Unit/L Normal 21-98 [facility] Comment on above: Performed By: #### 2 364900 #### [facility] [address] [place] [address] ALT No additional P-5'-P [Catalytic activity/Vol] 14 Int._Unit/L Normal 6-46 [facility] Comment on above: Performed By: #### 2 154195 #### [facility] [address] [place] [address] Anion gap [Moles/Vol] 10 mmol/L Normal 6-16 [facility] Comment on above: Performed By: #### 2 599517 #### [facility] [address] [place] [address] AST [Catalytic activity/Vol] 22 Int._Unit/L Normal 5-43 [facility] Comment on above: Performed By: #### 2 258011 #### [facility] [address] [place] [address] Bilirubin [Mass/Vol] 0.9 mg/dL Normal 0.0-1.1 [facility] Comment on above: Performed By: #### 2 628271 #### [facility] [address] [place] [address] Calcium [Mass/Vol] 9.5 mg/dL Normal 8.9-11.1 [facility] Comment on above: Performed By: #### 2 509418 #### [facility] [address] [place] [address] Chloride [Moles/Vol] 103 mmol/L Normal 101-111 [facility] Comment on above: Performed By: #### 2 706976 #### [facility] [address] [place] [address] CO2 [Moles/Vol] 29 mmol/L Normal 21-31 [facility] Comment on above: Performed By: #### 2 598146 #### [facility] [address] [place] [address] Creatinine [Mass/Vol] 1.1 mg/dL Normal 0.5-1.3 [facility] Comment on above: Performed By: #### 2 152417 #### [facility] [address] [place] [address] Globulin (S) [Mass/Vol] 2.9 g/dL Normal 1.4-4.0 [facility] Comment on above: Performed By: #### 2 078920 #### [facility] [address] [place] [address] Glucose [Mass/Vol] 104 mg/dL Normal 55-199 [facility] Comment on above: Performed By: #### 2 707160 #### [facility] [address] [place] [address] Potassium [Moles/Vol] 5.2 mmol/L Normal 3.5-5.3 [facility] Comment on above: Performed By: #### 2 190484 #### [facility] [address] [place] [address] Protein [Mass/Vol] 7.1 g/dL Normal 6.0-7.8 [facility] Comment on above: Performed By: #### 2 290420 #### [facility] [address] [place] [address] Sodium [Moles/Vol] 137 mmol/L Normal 135-145 [facility] Comment on above: Performed By: #### 2 694359 #### [facility] [address] [place] [address] Urea nitrogen [Mass/Vol] 15 mg/dL Normal 5-21 [facility] Comment on above: Performed By: #### 2 039365 #### [facility] [address] [place] [address] Urea nitrogen/Creatinine [Mass ratio] 14 No Units Normal 10-20 [facility] Comment on above: Performed By: #### 2 051791 #### [facility] [address] [place] [address] Consent for Treatmenton 04-14 Consent for Treatment [id number] 72#1.00TIFF [facility] HEMATOLOGYOrdered By: SYSTEM SYSTEM on 05-01-2024 [...] Remisol Heme Lab Reportson 05-01-2024 Lab Reports [id number] E#1.00TIFF [facility] Lipid Panelon 05-01-2024 Cholesterol [Mass/Vol] 168 mg/dL Normal 120-200 [facility] Comment on above: Performed By: #### 2 858797 #### [facility] [address] [place] [address] Cholesterol in HDL [Mass/Vol] 54 mg/dL Invalid Interpretation Code [facility] Comment on above: Result Comment: '>= 60 LOW RISK' '<= 40 HIGH RISK' Performed By: #### 2 640175 #### [facility] [address] [place] [address] Cholesterol in LDL [Mass/Vol] 99 mg/dL Normal <=129 [facility] Comment on above: Performed By: #### 2 805171 #### [facility] [address] [place] [address] Cholesterol in VLDL [Mass/Vol] 16 mg/dL Normal 7-40 [facility] Comment on above: Performed By: #### 2 030062 #### [facility] [address] [place] [address] Triglyceride [Mass/Vol] 78 mg/dL Normal <=149 [facility] Comment on above: Performed By: #### 2 068177 #### [facility] [address] [place] [address] Nurse Consultation Noteon Nurse Consultation Note Reason [...] influenza virus vaccine, inactivated 08/02/2014 Recorded [facility] PSA Screen, Totalon 05-01-20 24 Prostate specific Ag [Mass/Vol] 1.3 ng/mL Normal 0.1-3.5 [facility] Comment on above: Result Comment: The concentration of PSA determined by different manufacturers can vary due to differences in assay methods and reagent specificity. Values obtained from different assay methods cannot be used interchangeably. The methodology used for this result was chemiluminescence using [employer]'s [employer] Hybritech PSA reagent. Performed By: #### 1 [id number] #### [facility] [address] [place] [address] eGFRon 05-01-2024 eGFR 67 mL/min/1.73 m2 Normal >=59 [facility] Comment on above: Order Comment: Order added by Discern Expert. Performed By: #### 1 [id number] ####[facility] [address] [place] [address] Physician Orderon 04-23-2024 Physician Order [id number] 859#1.00TIFF [facility] Consent for Treatmenton Consent for Treatment [id number] #1.00TIFF [facility] Heart and Vascular Office/Cl inic Noteon [...] or orthopnea. 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 with liability claims manager, location unknown, however, has not been followed [...] influenza virus vaccine, inactivated 08/02/2014 Recorded [facility] Comment on above: Result Comment: Elec tronically Signed By: Ericka COHN, Kashif Perez.br\Date and Time Signed: 04/20/24 13:49 EDT Insurance Correspondenceon 0 04-20-2024 Insurance Correspondence [id number] 559#1.00TIFF [facility] Consultation Noteon 04-10-20 Consultation Note [id number] 1#1.00TIFF [facility] Postoperative Documentson Postoperative Documents [id number] 811#1.00TIFF [facility] Consultation Noteon 03-29-20 Consultation Note [id number] B4#1.00TIFF Normal [facility] Lab Reportson 03-29-2024 Lab Reports [id number] DF#1.00TIFF [facility] RAD - MISCon 03-29-2024 RAD - MISC [id number] 19#1.00TIFF [facility] IntraOperative Documentson 0 03-28-2024 IntraOperative Documents [id number] 516#1.00TIFF [facility] Consent for Anesthesiaon Consent for Anesthesia [id number] 28#1.00TIFF [facility] Discharge Instructionson Discharge Instructions [id number] 47#1.00TIFF [facility] IntraOperative Documentson 0 03-27-2024 IntraOperative Documents [id number] 36#1.00TIFF [facility] Main OR Intraoperative Recor don 03-27-2024 Main OR Intraoperative Record IntraOp Document Type FT Summary Primary Physician: Axel Hernández DO Finalized Date/Time: 03/27/24 09:11:12 Pt. Name: DARIEL ZABALA.O.B./Sex: 1940 Male Med Rec #: [id number] Physician: Axel Hernández DO Financial #: [id number] Pt. Type: A Room/Bed: [facility] Admit/Disch: 03/26/24 09:11:44 - [...] T Role Performed Anesthesiologist Surgeon - Primary Child Care Supervisor - Primary Asic Design Engineer Time In 03/26/24 12:20:00 03/26/24 12:20:00 03/26/24 [...] Marium Peña RN, Rich Nickerson Role Performed CLAIMS CORRESPONDENCE CLERK/SA Scrub - Primary Staff - Other Time [...] and tissue Entry 1 Skin Integrity Intact, Libby, Warm, and Skin Abnormality No Dry Outcomes Met? Yes Last Modified By: Ambrocio Borges 03/26/24 12:36:42 Post-Care Text: The patient is free from signs and symptoms of injury caused by extraneous objects Patient Positioning FT Pre-Care Text: Identifies physical alterations that require additional precautions for procedure-specific positioning, verifies presence of prosthetics or correctiv (more content not included)... [facility] Operative Reporton Operative Report SURGERY DATE: 03/26/2024 DENTAL LABORATORY MANAGER: Chica Jolley C.F.A. PREOPERATIVE DIAGNOSIS: Right little [...] patient's condition satisfactory Deanna Weller Dictated: 03/26/2024 [id number] Transcribed: 03/26/2024 cc:Kylah Garcia M.D. [facility] Comment on above: Result Comment: Elec tronically Signed By: Axel Hernández DO\.br\Date and Time Signed: 03/27/24 07:40 EDT Preoperative Documentson Preoperative Documents [id number] 14#1.00TIFF [facility] Progress Note-Physicianon Progress Note-Physician Patient: DARIEL [...] 2 causing vascular disease / SNOMED CT 941030763 / Confirmed Trigger finger / SNOMED CT 656462680 / Confirmed Syncope / SNOMED CT 266024040 / Confirmed Body mass index (BMI) of 25.0-25.9 in adult / SNOMED CT 6419658599 / Confirmed Osteoarthritis / SNOMED CT 0538634293 / Confirmed Encounter for surveillance of abnormal nevi / SNOMED CT 2289386455 / Confirmed Laceration of head / SNOMED CT 3464669169 / Confirmed Hyponatremia / SNOMED CT 618469851 / Confirmed Hyperlipidemia / SNOMED CT 71537259 / Confirmed Fall at home / SNOMED CT 55265419 / Confirmed ED (erectile dysfunction) / SNOMED CT 0056335373 / Confirmed Carpal tunnel syndrome, left / SNOMED CT 06408809 / Confirmed Afib / SNOMED CT 79166459 / Confirmed ASCVD (arteriosclerotic cardiovascular disease) / SNOMED CT 369841657 / Confirmed Histories Procedure history: Surgery, neck X 2 (912317834). Carpal tunnel release (560054444). Social History Social & Psychosocial Habits Alcohol [...] adequate air exchange. Cardiovascular: Regular rhythm. Plan [place] [employer] Anesthesiologists (ASA) physical status classification: Class III. Anesthetic Preoperative Plan: Anesthesia General. [facility] Comment on above: Result Comment: Elec [...] when meets criteria ( To home ). [facility] Comment on above: Result Comment: Elec tronically Signed By: Chau Cardona Jr, DO\.claudio\Date and Time Signed: 03/27/24 12:32 EDT CHEMISTRYOrdered By: Sara RIVAS User on 03-26-2024 Glucose [Mass/Vol] 92 mg/dL Normal 55 - 99 mg/dL FT C POC Subsection Comment on above: Result Comment: Noti jose RN/ POC Device SN [id number] 1 Invalid Interpretation Code [facility] POC Subsection POC User ID [id number] 1 Invalid Interpretation Code [facility] POC Subsection POC Username LORNA WILSON Invalid Interpretation Code [facility] POC Subsection COAGULATIONOrdered By: Toshia Tadeo on 03-26-2024 aPTT Coag (PPP) [Time] 35.8 s Normal 25.1 - 36.5 second(s) [facility] Auto Coag Comment on above: Interpretive Data: [...] the same coagulation reagent and instrumentation as [facility]. Currently there are no coagulation studies available worldwide for children to 14 days, and no normal ranges. Heparin therapeutic range (represented by Anti-Factor Xa activity of 0.2 - 0.4 U/mL) corresponds to PTT of 56.6 - 109.0 sec. PT Coag (PPP) [Time] 13.4 s High 9.4 - 1 2.5 second(s) [facility] Auto Coag Comment on above: Interpretive Data: [...] the same coagulation reagent and instrumentation as [facility]. Currently there are no coagulation studies available worldwide for children to 14 days, and no normal ranges. Capillary Glucose POCon 03-14 Glucose [Mass/Vol] 92 mg/dL Normal 55-99 [facility] Comment on above: Result Comment: Justine garcia RN/ Performed By: #### 2 [id number] #### [facility] [address] [place] [address] Consent for Procedure/Surger yon 03-26-2024 Consent for Procedure/Surgery [id number] 421#1.00TIFF [facility] Consent for Treatmenton 03-14 Consent for Treatment [id number] E9#1.00TIFF [facility] Discharge Instructionson Discharge Instructions DARIEL ZABALA :1940 Visit Date:03/26/2024 Inpatient Discharge Instructions Your Care Team Admitting Physician - Axel Hernández DO Referring Physician - Axel Hernández DO Reason for Your Visit RIGHT LITTLE FINGER TRIGGER FINGER Your Diagnosis Trigger finger, right little finger This Is Your Medications List Turmeric (Turmeric 500 mg oral capsule) acetaminophen-hydro codone ([place] 325 mg-5 mg oral tablet) atenolol (atenolol [...] AM EDT Comments: Keep scheduled appointment Where: [address] [place], [place] [id number]- [employer] (1) Medications What How Much When Why Instructions Next Dose Unchanged acetaminophen-hydro codone ([place] 325 mg-5 mg oral tablet) See instructions Trigger finger, right little finger 1 tab(s) Oral q4hr PRN Pain. Duration [address] Pickup at [facility]/pharmacy #[id number] Unchanged atenolol (atenolol 25 mg Tab) 1 [...] Tablets By Mouth Every day Pharmacy Information [facility]/pharmacy #[id number]: [address] [place], [place] [id number] [phone] Problems Ongoing - Any problem that you [...] and med (more content not included)... [facility] Comment on above: Result Comment: Elec tronically Signed By: Sloan KHAN, Rudy Pereira\.claudio\Date and Time Signed: 03/26/24 14:03 EDT H&P Updateon 03-26-2024 H&P Update [id number] 633#1.00TIFF [facility] Main OR PACU I Recordon 03-14 Main OR PACU I Record PACU Phase I Document Type FT Summary Primary Physician: Axel Hernández DO Finalized Date/Time: 03/26/24 13:38:42 Pt. Name: VJDARIEL/Sex: 1940 Male Med Rec #: [id number] Physician: Axel Hernández DO Financial #: [id number] Pt. Type: A Room/Bed: [facility] Admit/Disch: 03/26/24 09:11:44 - Institution: Case Times [...] By: Vicki Sethi RN 03/26/24 13:38 Normal [facility] Main OR PACU II Recordon Main OR PACU II Record PACU Phase II Document Type FT Summary Primary Physician: Axel Hernández DO Finalized Date/Time: 03/26/24 16:11:30 Pt. Name: CLIFFORDKassiDARIEL/Sex: 1940 Male Med Rec #: [id number] Physician: Axel Hernández DO Financial #: [id number] Pt. Type: A Room/Bed: [place] [address] Admit/Disch: 03/26/24 09:11:44 - 03/26/24 14:30:00 Institution: [...] By: Rudy Lisa RN 03/26/24 16:11 Normal [facility] Main OR Preoperative Recordo n 03-26-2024 Main OR Preoperative Record PreOp Document Type FT Summary Primary Physician: Axel Hernández DO Finalized Date/Time: 03/26/24 13:07:41 Pt. Name: DARIEL ZABALA/Sex: 1940 Male Med Rec #: [id number] Physician: Axel Hernández DO Financial #: [id number] Pt. Type: Room/Bed: [place] [address] Admit/Disch: 03/26/24 09:11:44 - Institution: Case Times [...] 03/26/24 13:05 Ambrocio Borges 03/26/24 13:07 [facility] Monitor Recordon 03-26-2024 Monitor Record [id number] 220#1.00TIFF [facility] Monitor Record [id number] 270#1.00TIFF [facility] PT & PTTon 03-26-2024 aPTT Coag (PPP) [Time] 35.8 second(s) Normal 25.1-36.5 [facility] Comment on above: Result Comment: Para [...] the same coagulation reagent and instrumentation as [facility]. Currently there are no coagulation studies available worldwide for children to 14 days, and no normal ranges. Heparin therapeutic range (represented by Anti-Factor Xa activity of 0.2 - 0.4 U/mL) corresponds to PTT of 56.6 - 109.0 sec. Performed By: #### 1 [id number] ####[facility] [address] [place] [address] PT Coag (PPP) [Time] 13.4 second(s) High 9.4-12.5 [facility] Comment on above: Result Comment: 15 [...] the same coagulation reagent and instrumentation as [facility]. Currently there are no coagulation studies available worldwide for children to 14 days, and no normal ranges. Performed By: #### 1 [id number] ####[facility] [address] [place] [address] PT & PTTOrdered By: Starr linda on 03-26-2024 INR Coag (PPP) [Relative time] 1.19 {INR} Invalid Interpretation Code [facility] Auto Coag Comment on above: Interpretive Data: [...] 3.0 ? 4.5 Performed By: #### 1 [id number] ####[facility] [address] [place] [address] Patient Education - Texton 0 03-26-2024 Patient [...] ? Doing activities that require a strong historic sites registrar. ? Having rheumatoid arthritis, gout, or diabetes. [...] on your hand. General instructions ? Take qanz-erl-wwmwlan and prescription medicines only as told by [...] care provide (more content not included)... [facility] Ambulatory Visit Summaryon 0 03-20-2024 Ambulatory [...] Appointments Tuesday 12:30 PM EDT With: Where: [facility] Tuesday 9:00 AM EDT With: Where: [facility] Invalid Interpretation Code [address] [place] [address]- \.br\ 2023 9:00 AM EDT \.br\ With: Adam COHN, Kylah Cole\.br\ Where: [facility] Consent for Procedure/Surger yon 03-20-2024 Consent for Procedure/Surgery [id number] 969#1.00TIFF [facility] Family Medicine Office/Clini c Noteon 03-20-2024 Family Medicine Office/Clinic Note HPI Staff Dariel is an 83 year old male presenting for ER follow up needs his andre removed ER followup: [facility]: [facility] Visit date: 03/10/24 Symptoms the patient presented [...] - Hold coumadin tomorow for surgery Ordered: [facility] Internal Ambulatory Referral 2. Fall at home (W19.XXXA: Unspecified fall, initial encounter) - 2/2 syncope - Nausea before syncope - Will refer to Cardio for evaluation of continues syncope Ordered: [facility] Internal Ambulatory Referral 3. Laceration of head (S01.91XA: Laceration without foreign body of unspecified part of head, initial encounter) - Stables removed - no issues. Ordered: [facility] Internal Ambulatory Referral 4. Syncope (R55: Syncope and collapse) - Will send to Cardio for further work up Ordered: [facility] Internal Ambulatory Referral 5. Hyponatremia (E87.1: Hypo-osmolality and hyponatremia) - Recheck BMP today - Follow up with Nephrology Ordered: [facility] Internal Ambulatory Referral 6. Over weight (E66.3: [...] influenza virus vaccine, inactivated 08/02/2014 Recorded [facility] Comment on above: Result Comment: Elec tronically Signed By: Adam COHN, Kylah Lopez.br\Date and Time Signed: 03/20/24 15:31 EDT Inpatient Patient Summaryon 03-20-2024 Inpatient Patient Summary [facility] [address] [place], [place] [address] [facility] Clinical Discharge Instructions PERSON INFORMATION Name: DARIEL ZABALA [facility]#:[id number] PHYSICIANS Admitting Physician: Axel Hernández DO Attending Physician: Axel Hernández DO PCP: Kylah Garcia MD Discharge Diagnosis: Trigger finger, right little finger Comment: PATIENT EDUCATION INFORMATION Instructions: Trigger Finger Medication Leaflets: Follow up: With: Address: When: Axel Hernández [address] [place] [address] [employer] ([email or web address]) Comments: Keep scheduled appointment Type Location Start [facility] [facility] 03/26/2024 12:30 PM 03/26/2024 12:45 PM Confirmed FM [facility] 05/01/2024 9:00 AM 05/01/2024 9:20 AM Confirmed FM Medicare Wellness Subsequent [facility] 05/03/2024 8:00 AM 05/03/2024 9:00 AM Confirmed FM Open [facility] 05/03/2024 9:00 AM 05/03/2024 9:15 AM Confirmed [...] mg oral capsule) ubiquinone (CoQ10) Comment: [facility] Outpatient Surgery Discharge Instructionon 03-20-2024 Outpatient Surgery Discharge Instruction [address] [address] Patient Discharge Instructions PERSON INFORMATION [...] Follow up: With: Address: When: Axel Hernández [address] [place], [place] [id number] [facility] (1) Comments: Keep scheduled appointment Type Location Start [facility] 03/26/2024 12:30 PM 03/26/2024 12:45 PM Confirmed FM Lab Draw [facility] 05/01/2024 9:00 AM 05/01/2024 9:20 AM Confirmed FM Medicare Wellness Subsequent [facility] 05/03/2024 8:00 AM 05/03/2024 9:00 AM Confirmed FM Open [facility] 05/03/2024 9:00 AM 05/03/2024 9:15 AM Confirmed [...] to serve you. Thank you for choosing [facility] HERE ARE THE MEDICATION CHANGES THAT OCCURRED [...] finger ca (more content not included)... [facility] ECG 12-Leadon 03-12-2024 ECG 12-Lead [id number] EC#1.00TIFF Normal [facility] ED Note-Physicianon 03-12-20 24 ED Note-Physician [id number] A7#1.00TIFF [facility] RAD - CT Reporton 03-12-2024 RAD - CT Report [id number] 20#1.00TIFF Normal [facility] RAD - CT Report [id number] A4#1.00TIFF [facility] RAD - MISCon 03-12-2024 RAD - MISC [id number] 55#1.00TIFF [facility] Ambulatory Visit Summaryon 0 03-08-2024 Ambulatory [...] Appointments Tuesday 1:45 PM EDT With: Where: [facility] Surgical Services Tuesday 9:00 AM EDT With: Where: [facility] Invalid Interpretation Code [address] [place] [address]- \.br\ 2023 9:00 AM EDT \.br\ With: Adam COHN, Kylah Cole\.br\ Where: [facility] Medicine Office/Clini c Noteon 03-08-2024 Family Medicine Office/Clinic Note HPI Staff Dariel is an 83 year old male presenting for surgical clearance Needs clearance and hold coumadin in writing and faxed to Dr Hernández at [phone] Note: he would really benefit for chronic care management if he qualifies ( he walks in here at least once a week with questions Date of surgery: March 26, 2024 Surgeon: Dr Hernández Hospital: [facility] Type of Surgery: rt little finger trigger [...] disorder) - Will send to Derm. Ordered: [facility] External Ambulatory Referral Follow-up No qualifying data [...] influenza virus vaccine, inactivated 08/02/2014 Recorded [facility] Comment on above: Result Comment: Elec [...] numbers. This can be done either in Cambodian (U.S.) or metric measurements. Note that charts and online BMI calculators are available to help you find your BMI quickly and easily without having to do these calculations yourself. To calculate your BMI in Cambodian ([place].S.) measurements: 1. Measure your weight in [...] for Disease Control and Prevention: www.cdc.gov ? [place] Heart Association: www.heart.org ? National Heart, Lung, and Blood [place]: www.nhlbi.nih.gov Summary ? Body mass index (BMI) is a number that is calculated from a person's weight and height. ? BMI may help estimate how much of a person's weight is composed of fat. BMI can help identify those who may be at higher risk for certain medical problems. ? BMI can be measured using Cambodian measurements or metric measurements. ? BMI charts are used to identify whether you are underweight, normal weight, overweight, or obese. This information is not intended to replace advice given to you by your health care provider. Make sure you discuss any questions you have with your health care provider. Document Revised: 07/23/2020 Document Reviewed: 05/30/2020 [employer] Patient Education ? 2022 [place]. [facility] Physician Referralon 024 Physician Referral [id number] 859#1.00TIFF [facility] XR Chest 2 Viewson 4 XR [...] mGy = na DAP = na [facility] BMPon 03-06-2024 Anion gap [Moles/Vol] 10 mmol/L Normal 6-16 [facility] Comment on above: Performed By: #### 1 8484115, 4817170, 5092769 ####[facility] [address] [place] [address] Calcium [Mass/Vol] 9.1 mg/dL Normal 8.9-11.1 [facility] Comment on above: Performed By: #### 1 1014021, 9482593, 1564372 ####[facility] [address] [place] [address] Chloride [Moles/Vol] 102 mmol/L Normal 101-111 [facility] Comment on above: Performed By: #### 1 8778292, 9381656, 8352197 ####[facility] [address] [place] [address] CO2 [Moles/Vol] 28 mmol/L Normal 21-31 [facility] Comment on above: Performed By: #### 1 9757923, 1801650, 8949414 ####[facility] [address] [place] [address] Creatinine [Mass/Vol] 1.0 mg/dL Normal 0.5-1.3 [facility] Comment on above: Performed By: #### 1 6318458, 0145891, 9208554 ####[facility] [address] [place] [address] Glucose [Mass/Vol] 98 mg/dL Normal 55-199 [facility] Comment on above: Performed By: #### 1 0628972, 3787772, 8259164 ####[facility] [address] [place] [address] Potassium [Moles/Vol] 4.3 mmol/L Normal 3.5-5.3 [facility] Comment on above: Performed By: #### 1 8362377, 4628488, 5693144 ####[facility] [address] [place] [address] Sodium [Moles/Vol] 136 mmol/L Normal 135-145 [facility] Comment on above: Performed By: #### 1 5401867, 5634613, 3055404 ####[facility] [address] [place] [address] Urea nitrogen [Mass/Vol] 14 mg/dL Normal 5-21 [facility] Comment on above: Performed By: #### 1 1918584, 7945632, 4609012 ####[address] [address] Urea nitrogen/Creatinine [Mass ratio] 14 No Units Normal 10-20 [facility] Comment on above: Performed By: #### 1 0322118, 1311882, 4715889 ####[address] [address] CBC w/ Auto Diffon 4 Basophils/100 WBC (Bld) 1.0 % Normal 0.0-2.0 [facility] Comment on above: Performed By: #### 1 0446114, 9727422, 4166340 ####[address] [address] Basophils/Leukocytes Auto (Bld) [Pure # fraction] 0.0 E9/L Normal 0.0-0.2 [facility] Comment on above: Performed By: #### 1 7189511, 1131728, 0199834 ####[address] [address] Eosinophils (Bld) [#/Vol] 0.2 E9/L Normal 0.0-0.5 [facility] Comment on above: Performed By: #### 1 8455457, 4380777, 1145003 ####[address] [address] Eosinophils/100 WBC (Bld) 3.9 % Normal 0.0-8.0 [facility] Comment on above: Performed By: #### 1 3850732, 8431102, 4658080 ####[address] [place] [address] Erythrocyte distribution width (RBC) [Ratio] 14.0 % Normal 10.9-14.2 [facility] Comment on above: Performed By: #### 1 2007729, 5925537, 0616805 ####[address] [address] Hematocrit (Bld) [Volume fraction] 39.1 % Normal 37.7-49.0 [facility] Comment on above: Performed By: #### 1 9919066, 5966761, 1984321 ####[address] [address] Hemoglobin (Bld) [Mass/Vol] 13.0 g/dL Low 13.5-17.5 [facility] Comment on above: Performed By: #### 1 2529079, 1055974, 0247269 ####[address] [address] Lymphocytes (Bld) [#/Vol] 1.4 E9/L Normal 1.0-4.0 [facility] Comment on above: Performed By: #### 1 6503733, 8795975, 4465776 ####[address] [address] Lymphocytes/100 WBC (Bld) 31.0 % Normal 14.0-50.0 [facility] Comment on above: Performed By: #### 1 6801809, 4001582, 4825758 ####[address] [address] MCH (RBC) [Entitic mass] 30.3 pg Normal 27.0-34.0 [facility] Comment on above: Performed By: #### 1 9179618, 8705276, 1221776 ####[address] [address] MCHC (RBC) [Mass/Vol] 33.3 g/dL Normal 31.4-36.0 [facility] Comment on above: Performed By: #### 1 1638067, 7272542, 0323057 ####[address] [address] MCV (RBC) [Entitic vol] 91.2 fL Normal 80.0-100.0 [facility] Comment on above: Performed By: #### 1 1496555, 3702978, 3906793 ####[address] [address] Monocytes (Bld) [#/Vol] 0.4 E9/L Normal 0.2-1.0 [facility] Comment on above: Performed By: #### 1 1537266, 2359182, 3100368 ####[address] [address] Neutrophils (Bld) [#/Vol] 2.5 E9/L Normal 2.0-7.5 [facility] Comment on above: Performed By: #### 1 1845459, 2008613, 7611778 ####[address] [address] Neutrophils/100 WBC (Bld) 55.3 % Normal 36.0-75.0 [facility] Comment on above: Performed By: #### 1 8775188, 5109057, 7834156 ####[address] [address] Platelet 157.0 E9/L Normal 150.0-500.0 [facility] Comment on above: Performed By: #### 1 3919678, 4798711, 1368910 ####[address] [address] Platelet mean volume (Bld) [Entitic vol] 9.7 fL Normal 6.4-10.8 [facility] Comment on above: Performed By: #### 1 4499887, 7236887, 5618298 ####[address] [address] RBC (Bld) [#/Vol] 4.3 E12/L Normal 4.3-5.9 [facility] Comment on above: Performed By: #### 1 7696817, 8765171, 9298535 ####[facility] [address] [place] [address] WBC corrected for nucl RBC Auto (Bld) [#/Vol] 4.6 E9/L Normal 4.0-11.0 [facility] Comment on above: Performed By: #### 1 0413485, 2202575, 1636079 ####[facility] [address] [place] [address] CHEMISTRYOrdered By: SYSTEM SYSTEM on 03-06-2024 Anion [...] for Treatmenton 02-13 Consent for Treatment [id number] B4#1.00TIFF [facility] HEMATOLOGYOrdered By: SYSTEM SYSTEM on 03-06-2024 [...] 03-06-2024 eGFR 75 mL/min/1.73 m2 Normal >=59 [facility] Comment on above: Order Comment: Order added by Discern Expert. Performed By: #### 1 7605287, 7854995, 4757462 ####[facility] [address] [place] [address] Consultation Noteon 03-01-20 Consultation Note [id number] 5E#1.00TIFF [facility] Lab Reportson 02-27-2024 Lab Reports [id number] E7#1.00TIFF [facility] Family Medicine Office/Clini c Noteon 02-07-2024 Family Medicine Office/Clinic Note HPI Staff Dariel is an 83 year old male presenting for 2 month follow up DM Needs refills of levothyroxine and glimiperide to [facility] Do you have any of the following symptoms? Foot Exam: none Eye Exam: due Last A1C: Hgb A1C %: 5.6 % (12/01/23 14:31:00) Statin: pravastatin 40mg questions/concerns: saw kidney specialist (Rashad) about 3 weeks ago ( no report in file) was told to stop the omeprazole and meloxicam and cut salt tablets from tid to bid. Also says [facility] sent him a letter and said [...] his left side. The patient saw his nuclear officer on 12/28/2023. 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 Substitutions may have occurred due to the inherent limitations of voice recognition and artificial intelligence software. ATTESTATION: Documentation services were performed after patient or guardian consented to allow [employer] to record this visit. MELISSA computer help desk specialist and provider reviewed before signing. MELISSA: [...] in life (more content not included)... [facility] Comment on above: Result Comment: Elec [...] Appointments Tuesday 9:00 AM EDT With: Where: [facility] Invalid Interpretation Code [address] [place] [address]- \.br\ 2023 9:00 AM EDT \.br\ With: Kylah Garcia MD\.br\ Where: [facility] Physician Referralon 024 Physician Referral [id number] 6#1.00TIFF [facility] Lab Reportson 01-05-2024 Lab Reports [id number] C1#1.00TIFF [facility] Transfer Inon 12-08-2023 Transfer In [id number] F9#1.00TIFF [facility] Auth for Release of Medical Recordson 12-06-2023 Auth for Release of Medical Records [id number] E#1.00TIFF [facility] Family Medicine Office/Clini c Noteon 12-02-2023 Family Medicine Office/Clinic Note HPI Staff Dariel is an 83 year old male presenting to [facility] Establish Care: History: a fib, DM type [...] an 83-year-old male who presents today to [facility]. He is accompanied by his . The [...] records from Dr. Jada Rene. 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 He and his family relocated from [place] to [place] 7 months ago, but they originally grew up in [place]. 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 Substitutions may have occurred due to the inherent limitations of voice recognition and artificial intelligence software. Documentation services were performed after patient or guardian consented to allow [employer] to record this visit. MELISSA computer help desk specialist and provider reviewed before signing. MELISSA: [...] Oral, Horace (more content not included)... [facility] Comment on above: Result Comment: Elec tronically Signed By: Kylah Garcia MD\.br\Date and Time Signed: 12/02/23 08:22 EST\.br\Electronically Co-Signed By: Allie Conway\.br\Date and Time Co-Signed: 12/01/23 17:49 EST Lab Reportson 12-02-2023 Lab Reports [id number] 1#1.00TIFF [facility] Ambulatory Visit Summaryon 0 12-01-2023 Ambulatory [...] for choosing us for your care. [facility] CBC w/ Auto Diffon 4 NRBC Man 0 Normal 0-0 [facility] Comment on above: Performed By: #### 2 780217, 1727385, 10948181, 2111374, 685404303 #### [facility] [address] [place] [address] Basophil Absolute 0.0 E9/L Normal 0.0-0.2 [facility] Comment on above: Performed By: #### 2 487554, 7857820, 29281413, 2947475, 618737747 #### [facility] [address] [place] [address] Basophils/100 WBC (Bld) 0.4 % Normal 0.0-2.0 [facility] Comment on above: Performed By: #### 2 774570, 4005210, 82516443, 1413617, 433018633 #### [facility] [address] [place] [address] Eos Absolute 0.2 E9/L Normal 0.0-0.5 [facility] Comment on above: Performed By: #### 2 391469, 6936330, 71443360, 3572819, 866477404 #### [facility] [address] [place] [address] Eosinophils/100 WBC (Bld) 2.9 % Normal 0.0-8.0 [facility] Comment on above: Performed By: #### 2 844778, 7005861, 36875985, 9188891, 798730419 #### [facility] [address] [place] [address] Erythrocyte distribution width (RBC) [Ratio] 14.0 % Normal 10.9-14.2 [facility] Comment on above: Performed By: #### 2 791039, 0731784, 84686096, 6721042, 521109210 #### [facility] [address] [place] [address] Hematocrit (Bld) [Volume fraction] 37.0 % Low 37.7-49.0 [facility] Comment on above: Performed By: #### 2 453911, 1773300, 35695418, 1092427, 660878599 #### [facility] [address] [place], [place] [address] Hemoglobin (Bld) [Mass/Vol] 12.1 g/dL Low 13.5-17.5 [facility] Comment on above: Performed By: #### 2 183648, 7764649, 85458308, 0312866, 210380043 #### [facility] [address] [place], [place] [address] Lymph Absolute 1.8 E9/L Normal 1.0-4.0 [facility] Comment on above: Performed By: #### 2 436021, 1540021, 33951956, 1796458, 315915460 #### [facility] [address] [place], [place] [address] Lymphocytes/100 WBC (Bld) 29.3 % Normal 14.0-50.0 [facility] Comment on above: Performed By: #### 2 416035, 8247427, 34977549, 3882553, 535377692 #### [facility] [address] [place] [address] MCH (RBC) [Entitic mass] 30.8 pg Normal 27.0-34.0 [facility] Comment on above: Performed By: #### 2 939774, 7320269, 60071485, 1829805, 522381035 #### [facility] [address] [place] [address] MCHC (RBC) [Mass/Vol] 32.8 g/dL Normal 31.4-36.0 [facility] Comment on above: Performed By: #### 2 874500, 3380283, 65467149, 7562980, 827733449 #### [facility] [address] [place] [address] MCV (RBC) [Entitic vol] 93.8 fL Normal 80.0-100.0 [facility] Comment on above: Performed By: #### 2 289953, 7922680, 09792405, 7356938, 396503942 #### [facility] [address] [place] [address] Mower Absolute 0.5 E9/L Normal 0.2-1.0 [facility] Comment on above: Performed By: #### 2 683595, 4215760, 99885760, 5371728, 683426088 #### [facility] [address] [place] [address] Monocytes/100 WBC (Bld) 7.9 % Normal 4.0-14.0 [facility] Comment on above: Performed By: #### 2 598374, 7327443, 88697246, 2149159, 391450723 #### [facility] [address] [place] [address] Neutro Absolute 3.6 E9/L Normal 2.0-7.5 [facility] Comment on above: Performed By: #### 2 654836, 1934425, 29861606, 1019303, 082609248 #### [facility] [address] [place] [address] Neutro Auto 59.5 % Normal 36.0-75.0 [facility] Comment on above: Performed By: #### 2 963580, 2246088, 62375153, 4067226, 788397323 #### [facility] [address] [place] [address] Platelet 198.0 E9/L Normal 150.0-500.0 [facility] Comment on above: Performed By: #### 2 681958, 4111592, 27801438, 9769145, 791564709 #### [facility] [address] [place] [address] Platelet mean volume (Bld) [Entitic vol] 9.5 fL Normal 6.4-10.8 [facility] Comment on above: Performed By: #### 2 878245, 2032388, 00471327, 4964405, 620135345 #### [facility] [address] [address] RBC 3.9 E12/L Low 4.3-5.9 [facility] Comment on above: Performed By: #### 2 412785, 4805917, 24489539, 6723611, 032748773 #### [facility] [address] [address] WBC 6.0 E9/L Normal 4.0-11.0 [facility] Comment on above: Performed By: #### 2 630601, 4471431, 35522512, 5350896, 730325898 #### [facility] [address] [place] [address] CHEMISTRYOrdered By: Kate Sotomayor on 12-01-2023 U [...] (Bld) [Mass fraction] 5.6 % Normal <=5.9% [facility] ChemAutoSS CMPon 12-01-2023 Albumin [Mass/Vol] 3.9 g/dL Normal 3.3-5.0 [facility] Comment on above: Performed By: #### 2 585062, 5387167, 95214317, 4220448, 065468023 #### [facility] [address] [place] [address] Albumin/Globulin [Mass ratio] 1.6 {ratio} Normal 1.1-2.2 [facility] Comment on above: Performed By: #### 2 601815, 7172238, 13063400, 0000688, 893278792 #### [facility] [address] [place] [address] Alk Phos 75 Int._Unit/L Normal 21-98 [facility] Comment on above: Performed By: #### 2 482096, 8442238, 26441086, 1088603, 753363084 #### [facility] [address] [place] [address] ALT 12 Int._Unit/L Normal 6-46 [facility] Comment on above: Performed By: #### 2 178503, 7760655, 10102173, 5357477, 002264093 #### [facility] [address] [place] [address] Anion gap [Moles/Vol] 9 mmol/L Normal 6-16 [facility] Comment on above: Performed By: #### 2 403702, 0780799, 14285273, 3814726, 997741743 #### [facility] [address] [place] [address] AST 20 Int._Unit/L Normal 5-43 [facility] Comment on above: Performed By: #### 2 184733, 1164032, 28879791, 9939286, 477262468 #### [facility] [address] [place] [address] Bili Total 0.9 mg/dL Normal 0.0-1.1 [facility] Comment on above: Performed By: #### 2 674570, 9600930, 36823394, 2417494, 079481168 #### [facility] [address] [place] [address] BUN/Creat Ratio 10 No Units Normal 10-20 [facility] Comment on above: Performed By: #### 2 228095, 9339366, 59307524, 2888544, 981224967 #### [facility] [address] [place] [address] Calcium [Mass/Vol] 8.7 mg/dL Low 8.9-11.1 [facility] Comment on above: Performed By: #### 2 121868, 4662049, 93204698, 9696296, 013459334 #### [facility] [address] [place] [address] Chloride [Moles/Vol] 104 mmol/L Normal 101-111 [facility] Comment on above: Performed By: #### 2 792557, 1672474, 27363464, 2990579, 780822195 #### [facility] [address] [place] [address] CO2 [Moles/Vol] 30 mmol/L Normal 21-31 [facility] Comment on above: Performed By: #### 2 133861, 2755565, 69856353, 0016267, 503284664 #### [facility] [address] [place] [address] Creatinine [Mass/Vol] 1.1 mg/dL Normal 0.5-1.3 [facility] Comment on above: Performed By: #### 2 554335, 4941846, 18389662, 0183244, 801124789 #### [facility] [address] [place] [address] Globulin (S) [Mass/Vol] 2.5 g/dL Normal 1.4-4.0 [facility] Comment on above: Performed By: #### 2 885252, 8346892, 65145238, 0406094, 727771967 #### [facility] [address] [place] [address] Glucose [Mass/Vol] 72 mg/dL Normal 55-199 [facility] Comment on above: Performed By: #### 2 824963, 3750030, 24472155, 4053687, 531475407 #### [facility] [address] [place] [address] Potassium [Moles/Vol] 4.2 mmol/L Normal 3.5-5.3 [facility] Comment on above: Performed By: #### 2 419960, 8645643, 09149368, 8819250, 630659677 #### [facility] [address] [place] [address] Protein [Mass/Vol] 6.4 g/dL Normal 6.0-7.8 [facility] Comment on above: Performed By: #### 2 281948, 7724554, 38721144, 5397713, 165647364 #### [facility] [address] [place] [address] Sodium [Moles/Vol] 139 mmol/L Normal 135-145 [facility] Comment on above: Performed By: #### 2 586105, 3656075, 63058455, 3238306, 871402529 #### [facility] [address] [place] [address] Urea nitrogen [Mass/Vol] 11 mg/dL Normal 5-21 [facility] Comment on above: Performed By: #### 2 133145, 1233367, 87985871, 8240928, 884803159 #### [facility] [address] [place] [address] HEMATOLOGYOrdered By: SYSTEM SYSTEM on 12-01-2023 Basophil [...] Normal 80.0 - 100.0 fL Remisol Heme Mower Absolute 0.5 E9/L Normal 0.2 - 1.0 [...] 1 Normal 0 - 0 Remisol Heme [id number] 12-01-2023 HbA1c (Bld) [Mass fraction] 5.6 % Normal <=5.9 [facility] Comment on above: Performed By: #### 2 005796, 7944477, 65238616, 9631549, 908468049 ####[facility] [address] [place] [address] Lipid Panelon 12-01-2023 Cholesterol [Mass/Vol] 156 mg/dL Normal 120-200 [facility] Comment on above: Performed By: #### 2 766119, 8546621, 62193219, 8184898, 764148490 #### [facility] [address] [place] [address] Cholesterol in HDL [Mass/Vol] 51 mg/dL Invalid Interpretation Code [facility] Comment on above: Result Comment: '>= 60 LOW RISK' '<= 40 HIGH RISK' Performed By: #### 2 876303, 6519107, 85365204, 3474867, 275578978 #### [facility] [address] [place] [address] Cholesterol in LDL [Mass/Vol] 89 mg/dL Normal <=129 [facility] Comment on above: Performed By: #### 2 193038, 3323853, 87451696, 5399560, 834715181 #### [facility] [address] [place] [address] Cholesterol in VLDL [Mass/Vol] 18 mg/dL Normal 7-40 [facility] Comment on above: Performed By: #### 2 287127, 6651579, 07070621, 6335048, 217148599 #### [facility] [address] [place] [address] Triglyceride [Mass/Vol] 92 mg/dL Normal <=149 [facility] Comment on above: Performed By: #### 2 [id number], [id number], [id number] #### [facility] [address] [place] [address] U Microalbon 12-01-2023 U Microalb <2.0 Normal 0.0-19.0 [facility] Comment on above: Performed By: #### 1 [id number] ####[facility] [address] [place] [address] U Protein/Creat Ratioon 11-14 U Creatinine 62.5 mg/dL Invalid Interpretation Code [facility] Comment on above: Performed By: #### 1 [id number] ####[facility] [address] [place] [address] U Prot/Creat Ratio NOT CALCULATED Invalid Interpretation Code .00-200.00 [facility] Comment on above: Performed By: #### 1 [id number], [id number] ####[facility] [address] [place] [address] Ur Total Protein <6.0 Invalid Interpretation Code [facility] Comment on above: Performed By: #### 1 [id number] ####[facility] [address] [place] [address] eGFRon 12-01-2023 eGFR 67 mL/min/1.73 m2 Normal >=59 [facility] Comment on above: Order Comment: Order added by Discern Expert. Performed By: #### 2 [id number], [id number], [id number] #### [facility] [address] [place] [address] Basic Metabolic Panelon 122 Anion gap [Moles/Vol] 8.1 mmol/L Normal 6.0-15.0 [facility] Comment on above: Order Comment: Reaso n for Exam Hyponatremia Performed By: #### C BC, BMP #### [facility] [address] [place] [address] [facility] Calcium [Mass/Vol] 9.3 mg/dL Normal 8.6-10.3 [facility] Comment on above: Order Comment: Reaso n for Exam Hyponatremia Result Comment: PERF ORMED BY: [facility] [address] [place] [address] PATHOLOGIST IT HELP DESK ASSOCIATE DANNY NEAL M.D. Performed By: #### C BC, BMP #### [facility] [address] [place] [id number] [place] Chloride [Moles/Vol] 102 mmol/L Normal 98-107 [facility] [employer] Other Comment on above: Order Comment: Reaso n for Exam Hyponatremia Performed By: #### C BC, BMP #### [facility] [address] [place] [id number] [place] CO2 [Moles/Vol] 32.4 mmol/L High 21.0-31.0 [facility] Comment on above: Order Comment: Reaso n for Exam Hyponatremia Performed By: #### C BC, BMP #### [facility] [address] [place] [id number] [facility] Creatinine [Mass/Vol] 1.07 mg/dL Normal 0.70-1.30 [facility] Comment on above: Order Comment: Reaso n for Exam Hyponatremia Performed By: #### C BC, BMP #### [facility] [address] [place] [address] [place] GFR/1.73 sq M.predicted MDRD (S/P/Bld) [Vol rate/Area] mL/min/{1.73_m2} Normal [facility] [employer] Other Comment on above: Order Comment: Reaso n for Exam Hyponatremia Performed By: #### C BC, BMP #### [facility] [address] [place] [id number] [place] Glucose [Mass/Vol] 93 mg/dL Normal 70-100 [facility] [employer] Other Comment on above: Order Comment: Reaso n for Exam Hyponatremia Result Comment: [place] om Glucose Reference Range is dependent on time and content of last meal. Glucose of more than 200 mg/dL in a nonstressed, ambulatory subject supports the diagnosis of Diabetes Mellitus. ADA recommended reference range Performed By: #### C BC, BMP #### [facility] [address] [place] [id number] [place] Potassium [Moles/Vol] 4.5 mmol/L Normal 3.5-5.1 [facility] Comment on above: Order Comment: Reaso n for Exam Hyponatremia Performed By: #### C BC, BMP #### [facility] [address] Sodium [Moles/Vol] 138 mmol/L Normal 136-145 [employer] Other Comment on above: Order Comment: Reaso n for Exam Hyponatremia Performed By: #### C BC, BMP #### [facility] [address] [place] [address] [place] Urea nitrogen [Mass/Vol] 13 mg/dL Normal 7-25 [employer] Other Comment on above: Order Comment: Reaso n for Exam Hyponatremia Performed By: #### C BC, BMP #### [facility] [address] [place] [address] [place] Calcium [Mass/Vol] 9.4007884 mg/dL Normal 8.6-10.3 mg/ dL [employer] Other CO2 [Moles/Vol] 32.68468994 mmol/L High 21.0-31.0 mm ol/L [employer] Other Creatinine [Mass/Vol] 1.20176645 mg/dL Normal 0.70-1.30 mg/dL [employer] Other Potassium [Moles/Vol] 4.94124830 mmol/L Normal 3.5-5.1 mmol/L [employer] Other Complete Blood Count Auto Di ffon 11-02-2023 Basophils (Bld) [#/Vol] 0.1 10*3/uL Normal 0.0-0.2 [facility] Comment on above: Order Comment: Reaso n for Exam Atrial fibrillation Result Comment: PERF ORMED BY: [place] [address] PATHOLOGIST IT HELP DESK ASSOCIATE DANNY NEAL M.D. Performed By: #### C BC, BMP #### [facility] [address] [place] [address] [place] Basophils/100 WBC (Bld) 1.0 % Normal . [facility] Comment on above: Order Comment: Reaso n for Exam Atrial fibrillation Performed By: #### C BC, BMP #### [facility] [address] [place] [address] [place] Eosinophils (Bld) [#/Vol] 0.1 10*3/uL Normal 0.0-0.45 [facility] Comment on above: Order Comment: Reaso n for Exam Atrial fibrillation Performed By: #### C BC, BMP #### [place] [address] [place] Eosinophils/100 WBC (Bld) 2.1 % Normal . [facility] Comment on above: Order Comment: Reaso n for Exam Atrial fibrillation Performed By: #### C BC, BMP #### [address] Erythrocyte distribution width (RBC) [Ratio] 14.0 % Normal 12.0-14.8 [facility] Comment on above: Order Comment: Reaso n for Exam Atrial fibrillation Performed By: #### C BC, BMP #### [address] Hematocrit (Bld) [Volume fraction] 38.8 % Normal 38.8-50.0 [facility] Comment on above: Order Comment: Reaso n for Exam Atrial fibrillation Performed By: #### C BC, BMP #### [place] [address] [place] Hemoglobin (Bld) [Mass/Vol] 13.2 g/dL Normal 13.0-17.0 [facility] Comment on above: Order Comment: Reaso n for Exam Atrial fibrillation Performed By: #### C BC, BMP #### [place] [address] [place] Lymphocytes (Bld) [#/Vol] 1.3 10*3/uL Normal 1.00-4.8 [facility] Comment on above: Order Comment: Reaso n for Exam Atrial fibrillation Performed By: #### C BC, BMP #### [place] [address] [place] Lymphocytes/100 WBC (Bld) 21.8 % Normal . [facility] Comment on above: Order Comment: Reaso n for Exam Atrial fibrillation Performed By: #### C BC, BMP #### [facility] [address] MCH (RBC) [Entitic mass] 31.5 pg Normal 27.5-35.2 [facility] Comment on above: Order Comment: Reaso n for Exam Atrial fibrillation Performed By: #### C BC, BMP #### [address] MCV (RBC) [Entitic vol] 92.7 fL Normal 83.5-101 [facility] Comment on above: Order Comment: Reaso n for Exam Atrial fibrillation Performed By: #### C BC, BMP #### [address] Mean Corpuscular HGB Conc 34.0 g/dL Normal 32.5-35.6 [facility] Comment on above: Order Comment: Reaso n for Exam Atrial fibrillation Performed By: #### C BC, BMP #### [place] [address] [place] Monocytes (Bld) [#/Vol] 0.5 10*3/uL Normal 0.0-0.8 [facility] Comment on above: Order Comment: Reaso n for Exam Atrial fibrillation Performed By: #### C BC, BMP #### [place] [address] [place] Monocytes/100 WBC (Bld) 8.5 % Normal . [facility] Comment on above: Order Comment: Reaso n for Exam Atrial fibrillation Performed By: #### C BC, BMP #### [facility] [address] [place] [address] [place] Neutrophils (Bld) [#/Vol] 4.0 10*3/uL Normal 1.8-7.7 [facility] Comment on above: Order Comment: Reaso n for Exam Atrial fibrillation Performed By: #### C BC, BMP #### [place] [address] [place] Neutrophils/100 WBC (Bld) 66.6 % Normal . [facility] Comment on above: Order Comment: Reaso n for Exam Atrial fibrillation Performed By: #### C BC, BMP #### [facility] [address] NRBC% 0.1 /100{WBC} Normal 0-0.5 [facility] Comment on above: Order Comment: Reaso n for Exam Atrial fibrillation Performed By: #### C BC, BMP #### [facility] [address] Platelet mean volume (Bld) [Entitic vol] 9.4 fL Normal 6.6-10.1 [facility] Comment on above: Order Comment: Reaso n for Exam Atrial fibrillation Performed By: #### C BC, BMP #### [address] Platelets (Bld) [#/Vol] 153 10*3/uL Normal 150-450 [employer] Other Comment on above: Order Comment: Reaso n for Exam Atrial fibrillation Performed By: #### C BC, BMP #### [address] RBC (Bld) [#/Vol] 4.19 10*6/uL Normal 3.90-5.60 [employer] Other Comment on above: Order Comment: Reaso n for Exam Atrial fibrillation Performed By: #### C BC, BMP #### [address] WBC (Bld) [#/Vol] 6.1 10*3/uL Normal 4.1-10.5 [facility] Comment on above: Order Comment: Reaso n for Exam Atrial fibrillation Performed By: #### C BC, BMP #### [address] Basophils (Bld) [#/Vol] 0.476415224 10*3/uL Normal 0.0-0.2 10*3/uL [employer] Other Basophils/100 WBC (Bld) 1.000 % . % [employer] Other Eosinophils (Bld) [#/Vol] 0.687135424 10*3/uL Normal 0.0-0.45 10*3/uL [employer] Other Eosinophils/100 WBC (Bld) 2.100 % . % [employer] Other Erythrocyte distribution width (RBC) [Ratio] 14.000 % Normal 12.0-14.8 % [employer] Other Hematocrit (Bld) [Volume fraction] 38.800 % Normal 38.8-50.0 % [employer] Other Hemoglobin (Bld) [Mass/Vol] 13.462046 g/dL Normal 13.0-17.0 g/dL [employer] Other Lymphocytes (Bld) [#/Vol] 1.302142773 10*3/uL Normal 1.00-4.8 10*3/uL [employer] Other Lymphocytes/100 WBC (Bld) 21.800 % . % [employer] Other MCH (RBC) [Entitic mass] 31.5000 pg Normal 27.5-35.2 pg [employer] Other MCV (RBC) [Entitic vol] 92.7000 fL Normal 83.5-101 fL [employer] Other Monocytes (Bld) [#/Vol] 0.076999386 10*3/uL Normal 0.0-0.8 10*3/uL [employer] Other Monocytes/100 WBC (Bld) 8.500 % . % [employer] Other Neutrophils (Bld) [#/Vol] 4.014128831 10*3/uL Normal 1.8-7.7 10*3/uL [employer] Other Neutrophils/100 WBC (Bld) 66.600 % . % [employer] Other Platelet mean volume (Bld) [Entitic vol] 9.4000 fL Normal 6.6-10.1 fL [employer] Other WBC (Bld) [#/Vol] 6.286998946 10*3/uL Normal 4.1-10.5 10*3/uL [employer] Other Complete Blood Count Auto Diff 6.1 10*3/uL Normal 4.1-10.5 10*3/uL [employer] Other Complete Blood Count Auto Diff 34.0 g/dL Normal 32.5-35.6 g/dL [employer] Other Complete Blood Count Auto Diff 0.1 /100{WBC} Normal 0-0.5 /100{WBC} [employer] Other PSA Screen (Yearly Only)on 01-03-2023 PSA Screen (Yearly Only) 1.940 ng/mL Normal 0.000-4.000 [facility] Comment on above: Order Comment: Reaso n for Exam Prostate cancer screening Result Comment: Dominik jacob tumor marker results determined by assays using different manufacturers or methods may not be comparable. [facility] car wiper and method: [employer] DXI, CHEMILUMINESCENT IMMUNOASSAY. PERFORMED BY: [place] [address] PATHOLOGIST IT HELP DESK ASSOCIATE DANNY NEAL M.D. Performed By: #### P SAS #### [address] Prothrombin Time INRon 06-16 INR Coag (PPP) [Relative time] 2.4 {INR} Normal [employer] Other Comment on above: Result Comment: INR [...] heart valves: 3 - 4.5 PERFORMED BY: [address] [address] PATHOLOGIST IT HELP DESK ASSOCIATE DANNY NEAL M.D. Performed By: #### P T #### [facility] [address] [place] [address] [facility] PT Coag (PPP) [Time] 27.8 s High 9.0-12.9 [facility] Comment on above: Performed By: #### P T #### [facility] [address] [place] [address] [facility] PT Coag (PPP) [Time] 27.800 s High 9.0-12.9 s [employer] Other Coding Summaryon 05-12-2020 Coding Summary CODING DATE: 05/12/2020 [facility] STATUS: Home PAYOR: Medicare MC ADMIT [...] Horan Date Saved: 05/12/2020 02:18 pm Normal [facility] ED Clinical Summaryon 2019 ED Clinical Summary [facility] ? Urgent Care [address] [place], [place] [id number] Clinical Summary PERSON INFORMATION Name: DARIEL ZABALA Age: 80 Years Sex: MALE : 1940 MRN: Acct#: Visit Reason: UC - Ear Problem; BILAT EAR PROBLEM Arrival: 05/08/2020 09:32:00 Discharge: 05/08/2020 10:15:00 LOS: 000 00:43 Check In: 05/08/2020 09:32:00 Checkout: 05/08/2020 10:15:00 Address: [facility] [place] [address] PCP: Provider, Unlisted PROVIDER INFORMATION Provider Role [...] Earwax Buildup, Adult Follow-Up: With: Address: When: [facility], [address] [place] [id number] Business (1) Comments: Please follow-up with your Doctor or Dr. Arellano Medical Doctor parking regulation enforcement officer, call their offices and make ointment to be seen in 3 days or sooner for continued care, please purchase xaql-wqa-nbpyesy Debrox which helps breakdown earwax, take all your medications as previously prescribed, drink plenty of water for hydration, and return back to urgent care center for any worsening symptoms, concerns, or complications. DIAGNOSIS: 1:Impacted cerumen of both ears Patient Understands: Yes - Patient/family/early breastfeeding care specialist verbalizes understanding of instructions given Comment: Normal [facility] ED Patient Summaryon 020 ED Patient Summary [facility] ? Urgent Care [address] [place], [place] [id number] PATIENT DISCHARGE INSTRUCTIONS Patient Information Name: DARIEL ZABALA Age: 80 Years Date of : 1940 Reason For Visit: UC - Ear Problem; BILAT EAR PROBLEM Arrival Time: 05/08/2020 09:32:00 Primary Care Physician: Provider, Unlisted Attending Physician: Larry Billingsley PA-C Comment: Patient Education With: Address: When: [facility], [address] [place] [address] Business (1) Comments: Please follow-up with your Doctor or Dr. Arellano Medical Doctor parking regulation enforcement officer, call their offices and make ointment to be seen in 3 days or sooner for continued care, please purchase fhig-cac-tuiiqaq Debrox which helps breakdown earwax, take all [...] Follow these instructions at home: ? Take crbl-dfi-brqnuhv and prescription medicines only as told by [...] clean them according to instructions from the car wiper and your health care provider. Contact a [...] 12/08/2005 Document Revised: 10/12/2018 Document Reviewed: 01/11/2018 [employer] Interactive Patient Education ? 2019 [employer] Medication Information: The exam and treatment you received today in the [facility] Emergency Department were for an urgent problem and are not intended as complete care. It is important for you to follow up with a doctor, nurse practitioner, or physician?s underwriting assistant for ongoing care. If your symptoms [...] so we can reach you if necessary. [facility] Emergency Department has provided you with a complete list of medications post discharge. Please inform your security shift supervisor/provider of your visit and for further instruction [...] both ears (H61.23) UC - Ear Problem ([id number]) If you received any narcotics, sedation, or [...] for Disease Control and Prevention July 2014 [facility] Patient Handouton 05-08-2020 Patient Handout Patient [...] Follow these instructions at home: ? Take lqrm-dxl-flzrbnl and prescription medicines only as told by [...] clean them according to instructions from the car wiper and your health care provider. Contact a [...] 12/08/2005 Document Revised: 10/12/2018 Document Reviewed: 01/11/2018 [employer] Interactive Patient Education ? 2019 [employer]. Normal [facility] Urgent Care Recordon 020 Urgent Care Record [facility] ? Urgent Care [address] [place], [place] [id number] PATIENT DISCHARGE INSTRUCTIONS Patient Information Name: DARIEL ZABALA Age: 80 Years Date of : 1940 Reason For Visit: UC - Ear Problem; BILAT EAR PROBLEM Arrival Time: 05/08/2020 09:32:00 Primary Care Physician: Provider, Unlisted Attending Physician: Larry Billingsley PA-C Comment: Visit Diagnosis: Diagnoses This Visit Impacted cerumen of both ears (H61.23) UC - Ear Problem ([id number]) If you received any narcotics, sedation, or [...] legal documents With: Address: When: Andrés Arellano [facility], [address] [place] [phone] Business (1) Comments: Please follow-up with your Doctor or Dr. Arellano, Medical Doctor parking regulation enforcement officer, call their offices and make ointment to be seen in 3 days or sooner for continued care, please purchase [id number]-ojtpkjd Debrox which helps breakdown earwax, take all your medications as previously prescribed, drink plenty of water for hydration, and return back to urgent care center for any worsening symptoms, concerns, or complications. Medication Information: The exam and treatment you received today in the [facility] Care were for an urgent problem and are not intended as complete care. It is important for you to follow up with a doctor, nurse practitioner, or physician?s underwriting assistant for ongoing care. If your symptoms [...] so we can reach you if necessary. [facility] has provided you with a complete list of medications post discharge. Please inform your security shift supervisor/provider of your visit and for further instruction [...] Follow these instructions at home: ? Take dmnk-osa-symawxj and prescription medicines only as told by [...] clean them according to instructions from the car wiper and your health care provider. Contact a [...] 12/08/2005 Document Revised: 10/12/2018 Document Reviewed: 01/11/2018 [employer] Patient Education ? 2019 [employer] Viruses or Bacteria What?s got you [...] for Disease Control and Prevention July 2014 [facility] Vital Signs Date Time Vital Sign Value Performing Clinician Facility 06-11-2024 12:48-0400 Diastolic blood pressure 78 mm[Hg] Kashif SunbeamnVeristorm [facility] 06-11-2024 12:48-0400 Heart rate 70 /min Kashif SunbeamnVeristorm [facility] 06-11-2024 12:48-0400 Respiratory rate 18 /min Kashif SunbeamnVeristorm [facility] 06-11-2024 12:48-0400 SaO2% (BldA) [Mass fraction] 97 % Kashif Sunbeamnus [facility] 06-11-2024 12:48-0400 Systolic blood pressure 138 mm[Hg] Kashif Kirnus [facility] 05-30-2024 13:31-0400 Blood Pressure Location Dixon Dubose [facility] 05-30-2024 13:31-0400 Diastolic blood pressure 70 mm[Hg] Dixon Dubose [facility] 05-30-2024 13:31-0400 Heart rate 75 /min Dixon Dubose [facility] 05-30-2024 13:31-0400 Respiratory rate 18 /min Dixon Dubose [facility] 05-30-2024 13:31-0400 SaO2% (BldA) [Mass fraction] 95 % Dixon Dubose [facility] 05-30-2024 13:31-0400 Systolic blood pressure 130 mm[Hg] Dixon Dubose [facility] 04-20-2024 13:17-0400 Diastolic blood pressure 78 mm[Hg] Kashif Julissanus [facility] 04-20-2024 13:17-0400 Heart rate 62 /min Kashif Julissanus [facility] 04-20-2024 13:17-0400 SaO2% (BldA) [Mass fraction] 97 % Kashif Julissanus [facility] 04-20-2024 13:17-0400 Systolic blood pressure 138 mm[Hg] Kashif Julissanus [facility] 03-26-2024 14:30-0400 Diastolic blood pressure 64 mm[Hg] Axel Hernández [facility] 03-26-2024 14:30-0400 Heart rate 50 /min Axel Hernández [facility] 03-26-2024 14:30-0400 Respiratory rate 16 /min Axel Hernández [facility] 03-26-2024 14:30-0400 SaO2% (BldA) [Mass fraction] 98 % Axel Hernández [facility] 03-26-2024 14:30-0400 Systolic blood pressure 128 mm[Hg] Axel Hernández [facility] 03-26-2024 13:31-0400 Heart rate 54 /min Axel Hernández [facility] 03-26-2024 13:31-0400 SaO2% (BldA) [Mass fraction] 97 % Axel Hernández [facility] 03-26-2024 13:31-0400 Respiratory rate 16 /min Axel Catherine [facility] 03-26-2024 13:30-0400 Body temperature 97.34 [degF] Axel Catherine [facility] 03-26-2024 13:29-0400 Blood Pressure Location Axel Hernández [facility] 03-26-2024 13:29-0400 Diastolic blood pressure 70 mm[Hg] Axel Catherine [facility] 03-26-2024 13:29-0400 Mean blood pressure 88 mm[Hg] Axel Catherine [facility] 03-26-2024 13:29-0400 Systolic blood pressure 125 mm[Hg] Axel Catherine [facility] 03-26-2024 13:20-0400 Body temperature 97.52 [degF] Axel Catherine [facility] 03-26-2024 13:20-0400 Diastolic blood pressure 63 mm[Hg] Axel Catherine [facility] 03-26-2024 13:20-0400 Heart rate 54 /min Axel Catherine [facility] 03-26-2024 13:20-0400 Mean blood pressure 77 mm[Hg] Axel Catherine [facility] 03-26-2024 13:20-0400 Respiratory rate 15 /min Axel Catherine [facility] 03-26-2024 13:20-0400 SaO2% (BldA) [Mass fraction] 97 % Axel Catherine [facility] 03-26-2024 13:20-0400 Systolic blood pressure 104 mm[Hg] Axel Catherine [facility] 03-26-2024 13:15-0400 Mean blood pressure 73 mm[Hg] Axel Catherine [facility] 03-26-2024 13:15-0400 Respiratory rate 15 /min Axel Catherine [facility] 03-26-2024 13:10-0400 Mean blood pressure 72 mm[Hg] Axel Hernández [facility] 03-26-2024 13:10-0400 Respiratory rate 11 /min Axel Catherine [facility] 03-26-2024 12:55-0400 Body temperature 97.52 [degF] Axel Hernández [facility] 03-26-2024 12:50-0400 Respiratory rate 1 /min Axel Hernández [facility] 03-26-2024 09:36-0400 Blood Pressure Location Axel Catherine [facility] 03-26-2024 09:36-0400 Mean blood pressure 112 mm[Hg] Axel Hernández [facility] 03-26-2024 09:34-0400 Mean blood pressure 97 mm[Hg] Axel Hernández [facility] 03-26-2024 09:34-0400 Body temperature 97.34 [degF] Axel Hernández [facility] 03-26-2024 09:34-0400 Blood Pressure Location Axel Hernández [facility] 03-26-2024 09:34-0400 Heart rate 50 /min Axel Hernández [facility] 03-06-2024 08:11-0400 Blood Pressure Location Axel Hernández [facility] 03-06-2024 08:11-0400 Diastolic blood pressure 74 mm[Hg] Axel Hernández [facility] 03-06-2024 08:11-0400 Heart rate 56 /min Axel Hernández [facility] 03-06-2024 08:11-0400 Mean blood pressure 98 mm[Hg] Axel Hernández [facility] 03-06-2024 08:11-0400 Systolic blood pressure 147 mm[Hg] Axel Hernández [facility] 03-06-2024 08:11-0400 Heart rate 57 /min Axel Hernández [facility] 03-06-2024 08:11-0400 SaO2% (BldA) [Mass fraction] 98 % Axel Hernández [facility] 03-06-2024 08:10-0400 Blood Pressure Location Axel Hernández [facility] 03-06-2024 08:10-0400 Body temperature 98.06 [degF] Axel Hernández [facility] 03-06-2024 08:10-0400 Diastolic blood pressure 73 mm[Hg] Axel Hernández [facility] 03-06-2024 08:10-0400 Mean blood pressure 92 mm[Hg] Axel Catherine [facility] 03-06-2024 08:10-0400 Systolic blood pressure 129 mm[Hg] Axel Catherine [facility] 03-06-2024 08:10-0400 Respiratory rate 18 /min Axel Hernández [facility] 11-18-2023 11:00-0500 Body height 180.34 cm Jada Rene Other [employer] [facility] Other 11-18-2023 11:00-0500 Body mass index (BMI) [Ratio] 25.38 kg/m2 Jada Rene Other [employer] Other 11-18-2023 11:00-0500 Body temperature 97.6 [degF] Jadaendy Rene Other [employer] Other 11-18-2023 11:00-0500 Body weight 82.56 kg Jadaendy Rene Other [employer] Other 11-18-2023 11:00-0500 Diastolic blood pressure 80 mm[Hg] Jada Rene Other [employer] Other 11-18-2023 11:00-0500 Respiratory rate 18 /min Jadamary Rene Other [employer] Other 11-18-2023 11:00-0500 SaO2% (BldA) [Mass fraction] 99 % Jadaendy Rene Other [employer] Other 11-18-2023 11:00-0500 Systolic blood pressure 132 mm[Hg] Jada Rene Other [employer] Other 11-02-2023 13:00-0500 Body height 180.34 cm Jadamary Rene Other [employer] Other 11-02-2023 13:00-0500 Body mass index (BMI) [Ratio] 24.4 kg/m2 Jadaendy Rene Other [employer] Other 11-02-2023 13:00-0500 Body weight 79.38 kg Jadaendy Rene Other [employer] Other 11-02-2023 13:00-0500 Diastolic blood pressure 82 mm[Hg] Jada Rene Other [employer] Other 11-02-2023 13:00-0500 Respiratory rate 18 /min Jada Rene Other [employer] Other 11-02-2023 13:00-0500 SaO2% (BldA) [Mass fraction] 97 % Jada Rene Other [employer] Other 11-02-2023 13:00-0500 Systolic blood pressure 138 mm[Hg] Jada Rene Other [employer] Other 09-21-2023 10:00-0500 Body height 180.34 cm Jada Rene Other [employer] Other 09-21-2023 10:00-0500 Body mass index (BMI) [Ratio] 25.81 kg/m2 Jada Rene Other [employer] Other 09-21-2023 10:00-0500 Body weight 83.96 kg Jada Edgard Other [employer] Other 09-21-2023 10:00-0500 Diastolic blood pressure 70 mm[Hg] Jada Rene Other [employer] Other 09-21-2023 10:00-0500 Respiratory rate 18 /min Jada Rene Other [employer] Other 09-21-2023 10:00-0500 SaO2% (BldA) [Mass fraction] 98 % Jada Edgard Other [employer] Other 09-21-2023 10:00-0500 Systolic blood pressure 140 mm[Hg] Jada Rene Other [employer] Other 06-16-2023 11:00-0400 Body height 180.34 cm Jadamary Rene Other [employer] Other 06-16-2023 11:00-0400 Body mass index (BMI) [Ratio] 23.79 kg/m2 Jada Edgard Other [employer] Other 06-16-2023 11:00-0400 Body weight 77.38 kg Jada Rene Other [employer] Other 06-16-2023 11:00-0400 Diastolic blood pressure 64 mm[Hg] Jada Edgard Other [employer] Other 06-16-2023 11:00-0400 Respiratory rate 18 /min Jada Rene Other [employer] Other 06-16-2023 11:00-0400 SaO2% (BldA) [Mass fraction] 98 % Jadamary Rene Other [employer] Other 06-16-2023 11:00-0400 Systolic blood pressure 118 mm[Hg] Jada Rene Other [employer] Other Encounters Encounter Date Encounter Type Care Provider Facility Start: 05-02-2025 ambulatory MD Kylah Garcia Facil ity:[facility] Start: 11-01-2024 ambulatory MD Kylah Garcia Facil ity:[facility] Start: 08-14-2024 ambulatory Davie Vargas Facilit y: [facility] Start: 08-07-2024 End: 08-07-2024 ambulatory MD Kylah Garcia Facility:[facility] Start: 07-31-2024 End: 07-31-2024 ambulatory MD Kylah Garcia Facility: [facility] Start: 07-24-2024 End: 07-24-2024 ambulatory MD Kylah Garcia Facility:[facility] Start: 07-23-2024 ambulatory MD Kylah Garcia Facil ity: [place] Start: 07-05-2024 ambulatory Kashif Barnett Facility :[facility] Start: 07-03-2024 End: 07-03-2024 ambulatory MD Kylah Garcia Facility:[facility] Start: 06-20-2024 End: 06-20-2024 ambulatory AXEL HERNÁNDEZ Not Available Start: 06-11-2024 End: 06-11-2024 ambulatory XXXX NONE Facility:[facility] Start: 06-11-2024 End: 06-11-2024 Patient encounter procedure Kashif Barnett [facility] Start: 05-30-2024 End: 05-30-2024 ambulatory Dixon Dubose Facility:[facility] Start: 05-30-2024 End: 05-30-2024 Patient encounter procedure Dixon Dubose [facility] Start: 05-21-2024 End: 05-21-2024 ambulatory Kashif Barnett Facility:[facility] Start: 05-21-2024 End: 05-21-2024 Patient encounter procedure Kashif Barnett [facility] Start: 05-03-2024 End: 05-03-2024 ambulatory MD Kylah Garcia Facility:[facility] Start: 05-01-2024 End: 05-01-2024 ambulatory MD Kashif Barnett Facility:[facility] Start: 05-01-2024 End: 05-01-2024 Patient encounter procedure Kashif Barnett [facility] Start: 05-01-2024 End: 05-01-2024 Lab Drop off Kylah Garcia [facility] Start: 05-01-2024 End: 05-01-2024 ambulatory MD Kylah Garcia Facility: [facility] Start: 04-20-2024 End: 04-20-2024 ambulatory MD Kashif Barnett Facility:[facility] Start: 04-20-2024 End: 04-20-2024 Patient encounter procedure Kashif Barnett [facility] Start: 04-04-2024 End: 04-04-2024 ambulatory AXEL HERNÁNDEZ Not Available Start: 03-26-2024 End: 03-26-2024 Admission to same day surgery center Axel Hernández [facility] Start: 03-26-2024 End: 03-26-2024 ambulatory Axel Hernández Facility:[facility] Start: 03-20-2024 End: 03-20-2024 ambulatory MD Kylah Garcia Facility: [facility] Start: 03-08-2024 End: 03-08-2024 ambulatory MD Kylah Garcia Facility: [facility] Start: 03-06-2024 End: 03-06-2024 ambulatory Axel Hernández Facility:[facility] Start: 03-06-2024 End: 03-06-2024 Patient encounter procedure Axel Hernández [facility] Start: 02-15-2024 End: 02-15-2024 ambulatory AXEL HERNÁNDEZ Not Available Start: 02-15-2024 End: 02-15-2024 ambulatory AXEL HERNÁNDEZ Not Available Start: 02-02-2024 End: 02-02-2024 ambulatory MD Kylah Garcia Facility:[facility] Start: 12-06-2023 End: 12-06-2023 ambulatory Jada Rene Other [employer] Other Start: 12-06-2023 Telephone encounter Jada Rene [facility] [place] Start: 12-02-2023 End: 12-02-2023 ambulatory Jadamary Rene Other [employer] Other Start: 12-02-2023 Telephone encounter Jada Rene [facility] [place] Start: 12-01-2023 End: 12-01-2023 Lab Drop off Kylah Garcia [facility] Start: 12-01-2023 End: 12-01-2023 ambulatory MD Kylah Garcia Facility:[facility] Start: 12-01-2023 ambulatory MD Kylah Garcia Facility :[facility] Jackie Start: 11-18-2023 End: 11-18-2023 ambulatory Jada Rene Other [employer] Other Start: 11-18-2023 Office outpatient vi sit 25 minutes Jada Rene [facility] [place] Start: 11-02-2023 End: 11-02-2023 ambulatory Jada Rene [facility] [employer] Other Start: 11-02-2023 Office outpatient vi sit 25 minutes Jada Rene [facility] [place] Start: 11-02-2023 Telephone encounter Jadamary Rene [facility] [place] Start: 10-28-2023 End: 10-28-2023 ambulatory Jadaendy Rene Other [employer] Other Start: 10-28-2023 Telephone encounter Jada Rene [facility] [place] Start: 09-30-2023 End: 09-30-2023 Nurse Triage Venessa Riggins RN NURSE GEM EXPERT Comment on above: Refill Request Start: 09-30-2023 Telephone encounter Jada Rene [facility] [place] Start: 09-21-2023 End: 09-21-2023 ambulatory Jadaendy Rene Other [employer] Other Start: 09-21-2023 Office outpatient vi sit 25 minutes Jadaendy Rene [facility] [place] Start: 08-29-2023 End: 08-29-2023 ambulatory Jadaendy Rene Other [employer] Other Start: 08-29-2023 Telephone encounter Jada Rene [facility] [place] Start: 08-26-2023 End: 08-26-2023 ambulatory Jadaendy Rene Other [employer] Other Start: 08-26-2023 Telephone encounter Jada Rene [facility] [place] Start: 08-08-2023 End: 08-08-2023 ambulatory Jadaendy Rene Other [employer] Other Start: 08-08-2023 Telephone encounter Jada Rene [facility] [place] Start: 07-27-2023 End: 07-27-2023 ambulatory Jadaendy Rene Other [employer] Other Start: 07-27-2023 Telephone encounter Jada Rene [facility] [place] Start: 06-16-2023 End: 06-16-2023 ambulatory Jada Endy Rene [facility] [employer] Other Start: 06-16-2023 Office outpatient ne w 45 minutes Jadaendy Rene [facility] [place] Start: 06-16-2023 Telephone encounter Jadaendy Rene [facility] [place] Procedures Date Procedure Procedure Detail Performing Clinician Start: 03-26-2024 Decompression of med carlos nerve xAel Hernández Decompression of med carlos nerve Axel Hernández Surgery (qualifier value) Sa fariha Garcia Plan of Treatment Date Care Activity Detail Author Start: 07-15-2023 Influenza vaccination Influenza Vacc ine (#1) [facility] Start: 11-14-2022 Advance Directive Discussion Advance Directive Discussion [facility] Start: 11-14-2022 Depression Assessment Depression Ass essment [facility] Start: 03-31-2016 Pneumococcal Vaccine : 65+ (2 - PPSV23 or PCV20) Pneumococcal Vaccine: 65+ (2 - PPSV23 or PCV20) [facility] Start: 03-24-2016 Hepatitis B surface antibody level LDL Cholesterol [facility] Start: 09-24-2015 Hemoglobin A1c/Hemoglobin.total in Blood HbA1C [facility] Start: 08-01-2015 3 comp foot exam completed Diabetic Foot Exam [facility] Start: 07-25-2015 Hepatitis B screening Urine Al bumin:Creatinine Ratio [facility] Start: 02-01-2015 Urine microalbumin profile DTaP,Tdap,Td Vaccine (1 - Tdap) [facility] Start: 10-24-2013 Shingrix Vaccine (2 of 3) Shingrix V accine (2 of 3) [facility] Start: 09-14-2012 Hepatitis C antibody , confirmatory test Dilated Retinal Exam [facility] Start: 2002 RSV Vaccine (1 - 1-d ose 60+ series) RSV Vaccine (1 - 1-dose 60+ series) [facility] Start: 1940 Covid-19 Vaccine (#1) Covid-19 Vacci ne (#1) [facility] Immunizations Immunization Date Immunization Notes Care Provider Fa cility 09-21-2023 Prevnar 20 Jada Rene Other [facility] [place] 08-19-2023 Flu Shot - Documentation Purposes Only Jada Rene Other [employer] Other 08-19-2023 influenza virus vaccine, unspecified formulation Kylah Garcia [facility] 08-14-2022 influenza, seasonal, injectable Jada Edgard Other [employer] Other 03-31-2015 pneumococcal conjuga te vaccine, 13 valent Jada Edgard Other [facility] 08-02-2014 influenza, high dose seasonal, preservative-free Venessa Riggins RN [facility] 08-02-2014 influenza virus vaccine, unspecified formulation Venessa Riggins RN [facility] 08-29-2013 zoster vaccine, live Venessa Riggins RN [facility] 08-09-2013 influenza virus vaccine, unspecified formulation Venessa Riggins RN [facility] 07-31-2012 influenza virus vaccine, unspecified formulation Venessa Riggins RN [facility] Work Phone: 03-07-2012 tetanus and diphther ia toxoids, adsorbed, preservative free, for adult use (2 Lf of tetanus toxoid and 2 Lf of diphtheria toxoid) Venessa Riggins RN [facility] Work Phone: 08-07-2011 influenza virus vaccine, unspecified formulation Venessa Riggins RN [facility] Work Phone: Payers Date Payer Category Payer Unknown [id number] 2023 Medicare [id number] 2023 Self-pay 2023 Medicare [employer] BY [employer] [facility] [id number] 2023-Present [phone] [address] [place] [address] O [id number] 1942 Unknown [id number] 2.16.840.1.202097.3.579.2.125 9 1942 Unknown [id number] 2.16.840.1.207822.3.579.2.125 9 1942 Unknown [id number] 2.16.840.1.514052.3.579.2.125 9 1942 Unknown [id number] 2.16.840.1.739391.3.579.2.125 9 1942 Unknown [id number] 2.16.840.1.079669.3.579.2.125 9 1942 Unknown [id number] 2.16.840.1.528868.3.579.2.72 1942 Unknown [id number] 2.16.840.1.804589.3.579.2.72 1942 Unknown [id number] 2.16.840.1.065344.3.579.2.72 1942 Unknown [id number] 2.16.840.1.102250.3.579.2.72 1942 Unknown [id number] 2.16.840.1.019037.3.579.2.72 1942 Unknown [id number] 2.16.840.1.246290.3.579.2.72 1942 Unknown [id number] 2.16.840.1.552416.3.579.2.72 1942 Unknown [id number] 2.16.840.1.903055.3.579.2.72 1942 Unknown [id number] 2.16.840.1.362616.3.579.2.72 1942 Unknown [id number] 2.16.840.1.993285.3.579.2.72 1942 Unknown [id number] 2.16.840.1.732460.3.579.2.72 1942 Unknown [id number] 2.16.840.1.018477.3.579.2.727 1942 Unknown [id number] 2.16.840.1.038989.3.579.2.72 1942 Unknown [id number] 2.16.840.1.998632.3.579.2.72 1942 Unknown [id number] 2.16.840.1.594178.3.579.2. 1942 Unknown [id number] 2.16.840.1.532827.3.579.2. 1942 Unknown [id number] 2.16.840.1.248781.3.579.2. 1942 Unknown [id number] 2.16.840.1.821260.3.579.2. 1942 Unknown [id number] 2.16840.1.804318.3.579.2 1942 Unknown [id number] 2.16840.1.031785.3.579.2. 1942 Unknown [id number] 2.16.840.1.681403.3.579.2 1942 Unknown [id number] 2.16.840.1.362073.3.579.2 1942 Unknown [id number] 2.16.840.1.649493.3.579.2 1942 Unknown [id number] 2.16.840.1.349659.3.579.2.727 Medicare [id number] 2.16.840.1.779766.19 Unknown [id number] 2.16.840.1.065912.3.579.2.531 Unknown [id number] 2.16.840.1.523779.3.579.2.531 Social History Date Type Detail Facility Sex Assigned At [facility] Start: 12-01-2023 End: 06-11-2024 Tobacco smoking status NHIS Never smoked tobacco [facility] Start: 06-28-2022 Alcohol intake Current drinke r of alcohol (finding) [facility] Start: 06-28-2022 Alcohol intake [facility] Start: 1940 Sex Assigned At Not on file [facility] Tobacco smoking status Never [facility] [place] Medical Equipment Procedure Code Equipment Code Equipment Origin al Text Equipment Identifier Dates Test blood sugar(s) 2 times daily. Dx: non. Insulin: No dx 250.00 Start: 08-24-2013 Comment on above: Test blood sugar(s) 2 times daily. Dx: non. Insulin: No dx 250.00 Functional Status Date Assessment Result Facility 06-11-2024 Functional Status N/A [facility] 05-30-[address] [facility] 04-20-2024 Functional Status N/A [facility] 03-06-[address] [facility] Clinical Notes 03-10-2010 to 05-01-2024 Note Date & Type Note Facility 05-01-2024 Note Echocardiology Procedure Exam Date/Time Accession # Ordering Echo Transthoracic 05/01/2024 15:00 EDT [id number] Kashif Barnett MD Complete CPT code 11928 47307 Reason for Exam (Echo Transthoracic Complete) AFIB, Syncope R55;Other (please specify) Report Version: 1 Study ID: [id number] [facility] [address] [place] [address] Adult Echocardiogram Report Name: DARIEL ZABALA Study Date: 05/01/2024, 2: 02 PM Patient Location: [facility] : 1940 (MM/DD/YYYY) Gender: Male Age: 84 [...] Signed by: Jason Vaughn MD Transcribed by: [facility] Technologist: [facility] 03-26-2024 Hospital Discharg e instructions Patient [...] condition: Doing activities that require a strong historic sites registrar. Having rheumatoid arthritis, gout, or diabetes. Being [...] splint on your hand. General instructions Take oihm-oyr-osgzvyc and prescription medicines only as told by [...] provider. Document Revised: 03/17/2020 Document Reviewed: 03/17/2020 [employer] Patient Education 2022 [employer]. Follow Up Care 03/01/2024 15:40:29 With:GORDO Weller Address: [address] [place] [address] [facility] (1) When:04/04/2024 10:15:00 Comments:Keep scheduled appointment [facility] 03-20-2024 Note [id number] [facility] 11-18-2023 Evaluation note Encounter Date Diagnosis [...] sodium level at upcoming appt in January [employer] Other 12-20-2023 Evaluation note* Encounter Date Diagnosis [...] further dizziness symptoms would recommend f/u with liability claims manager as well. [employer] Other 11-17-2023 Evaluation note* Encounter Date Diagnosis Assessment Notes Treatment Notes Treatment Clinical Notes Sep, Type 2 diabetes mellitus (ICD-10 - E11.9) [employer] [facility] Other 11-17-2023 Miscellaneous Notes* Telephone Encounter - Venessa Riggins RN - 09/30/2023 12:29 PM EST Called patient back and reviewed plan from his call with Nurse Labor Relations Supervisor at 11:36 AM. See my note Patient [...] have any questions, you can call Nurse retail sales professional back. * Telephone Encounter - Venessa Riggins RN - 09/30/2023 11:36 AM EST Patient calling with request for physician referral: Patient referred to nephrology and primary care Department. Patient denies any new or worsening symptoms of which a provider is not aware: Yes. Patient was discharged from [facility] on 08/26 for low sodium and [...] have any questions, you can call Nurse retail sales professional back. [facility]* Encounter Date Diagnosis Assessment Notes Treatment Notes Treatment Clinical Notes Sep, Hyponatremia (ICD-10 - E87.1) Recent sodium 136 at low end of normal, given significance of symptoms and recommendation of hospital for f/u will refer to nephrology patient requesting [place] Sep, Anticoagulant long-term use (ICD-10 - Z79.01) Follows with INR clinic through [facility]. Sep, Atrial fibrillation (ICD-10 - I48.91) Appears in NSR today, anticoagulated on Warfarin Sep, Hypothyroidism (ICD-10 - E03.9) Recent TFTs in normal range, clinically euthyroid, continue current dose of LT4 Sep, Type 2 diabetes mellitus (ICD-10 - E11.9) Recent a1c in good range at 5.6%, continue current dose of glimepiride. Sep, Immunization due (ICD-10 - Z23) [employer] Other 10-16-2023 Evaluation note* Encounter Date Diagnosis Assessment Notes Treatment Notes Treatment Clinical Notes Aug, Hyponatremia (ICD-10 - E87.1) [employer] [facility] Other 08-03-2023 Evaluation note* Encounter Date Diagnosis Assessment Notes Treatment Notes Treatment Clinical Notes Jun, Atrial fibrillation (ICD-10 - I48.91) Rate controlled, mild bradycardia but asymptomatic. Will continue current dose of atenolol. He is anticoagulated on Coumadin with goal INR 2-3, he is due for INR check. Will refer to coumadin clinic through [facility] Jun, Anticoagulant long-term use (ICD-10 - Z79.01) Jun, Hearing loss (ICD-10 - H91.90) Referral to local pile driver Jun, Dermatitis (ICD-10 - L30.9) Can trial topical steroid PRN, discussed may be secondary to dry skin. Recommend daily use of lotion Jun, Hypothyroidism (ICD-10 - E03.9) Due for TFTs prior to next visit Jun, Type 2 diabetes mellitus (ICD-10 - E11.9) Due for a1c prior to next visit Jun, BPH (benign prostatic hyperplasia) (ICD-10 - N40.0) [employer] Other 08-03-2023 Reason for referral (narrative)* Reason Medication managemen t through [facility] - Coumadin management with INR goal 2-3 Diagnosis 1 Anticoagulant long-t erm use (Z79.01) Referral Organization [facility] Family [facility] [place] Referring Provider First Name Jada Referring Provider Last Name Edgard Referring Provider Specialty [facility] Referred Organization [facility] Referred Address [address], [place],[address] Referred Provider Specialty Milvia felix Referral Priority Routine General Notes Gabrielle Reid 01/2023 01:34:29 PM >this is an order not a referral, clinical informed and will fax order over for standing order INR to [facility] Reason * FU 06/29 CALL he aring loss, issue with hearing aids Diagnosis 1 Hearing loss (H91.90 ) Referral Organization [facility] Family [facility] Referring Provider First Name Jada Referring Provider Last Name Edgard Referring Provider Specialty Family [facility] Referred Organization [facility] Referred Address ,[place], [place],[address] Referred Provider Specialty Audiologists Referral Priority Routine General Notes Gabrielle Reid 01/2023 01:28:34 PM >referral received and faxed [employer] Other 04-27-2010 History of Past illness Narrative* Problem Noted Date Diagnosed Date Resolved Date Myalgia 03/10/2010 03/01/2011 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 and other lower urinary tract symptoms (LUTS) 08/11/2006 01/11/2013 Elevated prostate specific antigen (PSA) 03/07/2012 documented as of this encounter (statuses as of 09/30/2023) [facility] No data available for this section [facility] Future Appointments Appointment Date:03/08/2024 01:00:00 PM Scheduled Provider:Kylah Garcia MD [facility]: Open Appointment Date:03/26/2024 01:45:00 PM Scheduled Provider: Location[facility] Appointment Type:Surgery FT Appointment Date:05/01/2024 09:00:00 AM Scheduled Provider: [facility] App[facility] Type: Lab Draw Appointment Date:05/03/2024 08:00:00 AM Scheduled Provider: Location:[facility] Appointment Type:FM Medicare Wellness Subsequent Appointment Date:05/03/2024 09:00:00 AM Scheduled Provider:Kylah Garcia MD [facility] App[facility] Type: Open Future Scheduled Tests Laboratory* PSA Screen, Total 02/02/24 * CBC w/ Auto Diff 02/02/24 * Comprehensive Metabolic Panel 02/02/24 * Lipid [facility] Future Appointments Appointment Date:05/01/2024 09:00:00 AM Scheduled Provider: [facility] App[facility] Type: Lab Draw Appointment Date:05/03/2024 08:00:00 AM Scheduled Provider: [facility] App[facility] Type: Medicare Wellness Subsequent Appointment Date:05/03/2024 09:00:00 AM Scheduled Provider:Kylah Garcia MD Location:[facility] Appointment Type: Open Future Scheduled Tests Laboratory* PSA Screen, Total 02/02/24 * CBC w/ Auto Diff 02/02/24 * Comprehensive Metabolic Panel 02/02/24 * Lipid Panel 02/02/24 [facility] Future Appointments Appointment Date:05/01/2024 09:00:00 AM Scheduled Provider: Location:[facility] Appointment Type: Lab Draw Appointment Date:05/03/2024 08:00:00 AM Scheduled Provider: Location:[facility] Appointment Type: Medicare Wellness Subsequent Appointment Date:05/03/2024 09:00:00 AM Scheduled Provider:Kylah Garcia MD Location:[facility] Appointment Type: Open Appointment Date:05/25/2024 01:00:00 PM Scheduled Provider:Kashif [facility]ett MD [facility] [place] [facility] Type:Cardiology Follow Up (FT) Future Scheduled Tests Laboratory* PSA Screen, Total 02/02/24 * CBC w/ Auto Diff 02/02/24 * Comprehensive Metabolic Panel 02/02/24 * Lipid Panel 02/02/24 Radiology* Echo Transthoracic Complete [facility]24 [facility] Future [facility]ments Appointment Date:05/03/2024 08:00:00 AM Scheduled Provider: Location:[facility] Appointment Type: Medicare Wellness Subsequent Appointment Date:05/03/2024 09:00:00 AM Scheduled Provider:Kylah Garcia MD Location:[facility] Appointment Type: Open Appointment Date:05/21/2024 10:00:00 AM Scheduled Provider: [facility] Type:CV Holter/Event (FT) Appointment Date:05/25/2024 01:00:00 PM Scheduled Provider:Kashif Barnett MD [facility] [place] [facility] Type:Cardiology Follow Up (FT) [facility] Future Appointments Appointment Date:05/30/2024 03:45:00 PM Scheduled Provider:Kashif Barnett MD [facility] Type:Cardiology Follow Up (FT) Appointment Date:11/01/2024 09:15:00 AM Scheduled Provider:Kylah Garcia MD Location:[facility] Appointment Type: Open Appointment Date:05/02/2025 08:00:00 AM Scheduled Provider: Location:[facility] Appointment Type:FM [facility] Well[facility] Future App[facility]ments Appointment Date:08/31/2024 01:00:00 PM Scheduled Provider:Kashif Barnett MD [facility] [place] Appointment Type:Cardiology Follow Up (FT) Appointment Date:11/01/2024 09:15:00 AM Scheduled Provider:Kylah Garcia MD [facility]: Open Appointment Date:05/02/2025 08:00:00 AM Scheduled Provider: Location:[facility] Appointment Type:FM Medicare Wellness [facility] Future App[facility]ments Appointment Date:11/01/2024 09:15:00 AM Scheduled Provider:Kylah Garcia MD Location:[facility] Appointment Type:FM Open Appointment Date:12/11/2024 01:00:00 PM Scheduled Provider:Dixon Dubose PA-C [facility] Type:Cardiology Follow Up (FT) Appointment Date:05/02/2025 08:00:00 AM Scheduled Provider: Location:[facility] Appointment Type:FM Medicare Wellness Subsequent [facility] Evaluation noteNo InformationMerged With [facility] [employer] Other [employer] general Narrative - Reported* Type Description Date Medical History type 2 diabetes Medical History hypothyroid Medical History Afib Surgical History multiple neck sx Surgical History tonsillectomy Surgical History adenoidectomy Surgical History MAU cataract Hospitalization History see above [facility] Other [facility] general Narrative - Reported* Type Description Date Medical History type 2 diabetes Medical History hypothyroid Medical History Afib Surgical History multiple neck sx Surgical History tonsillectomy Surgical History adenoidectomy Surgical History MAU cataract Hospitalization History see above Hospitalization History low sodium[facility]2023 [employer] Other History general Narrative - Reported* Type [...] 2 DM, generalized weakness hypomagnesiema, RADHA 11/13/23-11/15/23 [employer] Other Hospital Discharge instructions No data available for this section [facility] No data available for this section [facility] Summary Purpose Family History No Family History [...] hospitalization for symptomatic hyponatremia, [facility] [place] Dr. Lara [phone], fax [phone] Diagnosis 1 Hyponatremia (E87.1) Referral Organization [facility] Family Rodo John Referring Provider First Name Jada Referring Provider Last Name Edgard Referring Provider Specialty [facility] Referred Organization Will Mendoza Referred Provider Romeo Lara Referred Address [address] [place] [id number] Referred Provider Specialty Internal Med icine Referral Priority Routine General Notes Gabrielle Reid 06/2023 01:35:25 PM > referral received and faxed Clinical Notes [facility] [place] Dr. Lara ph [phone], fax [phone] Reason hyponatremia, recent hospitalization [facility] for hyp[facility]atremia Diagnosis 1 Hyponatremia (E87.1) Referral Organization [facility] Rodo tonny John Referring Provider First Name Jada Referring Provider Last Name Rene Referring Provider Specialty [facility] Referred Organization [facility] Referred Address [address] [place], [place],[address] Referred Provider Specialty Nephrology Referral Priority Routine Additional Source Comments (unrecognized sect ion and content) No Status Records FoundNo Status Records FoundNo Status Records FoundNo Status Records FoundNo Status Records FoundNo Status Records FoundNo Status Records FoundNo Status Records FoundNo Status Records Found INFORMATION SOURCE (unrecogn ized section and content) DATE CREATED AUTHOR 06/03/2020 [facility] DATE CREATED AUTHOR AUTHOR'S ORGANIZ ATION 11/10/2023 [facility] DATE CREATED AUTHOR AUTHOR'S ORGANIZ ATION 05/03/2024 [facility] DATE CREATED AUTHOR AUTHOR'S ORGANIZ ATION 06/22/2024 [facility] EPIC DATE CREATED AUTHOR AUTHOR'S ORGANIZ ATION 07/01/2024 [facility] DATE CREATED AUTHOR AUTHOR'S ORGANIZ ATION 08/11/2024 [facility] REASON FOR VISIT (unrecogniz ed section and content) Reason Comments Refill Request Source Comments (unrecognize d section and content) In the event this informatio n is protected by the Federal Confidentiality of Alcohol and Drug Abuse Patient Records regulations: The Federal rules restrict any use of the information to criminally investigate or prosecute any alcohol or drug abuse patient.[facility] Patient Care team informatio n (unrecognized section and content) Personnel Name: Kylah Garcia MD Address: Address: [address] Personnel Name: Kylah Garcia MD Address: Address: [facility] [place] [address] Personnel Name: Kylah Garcia MD Address: Address: [facility] [place] [address] Personnel Name: Kylah Garcia MD Address: Address: [address] [place] [address] Personnel Name: Kylah Garcia MD Address: Address: [facility] [place] [address] Personnel Name: Kylah Garcia MD Address: Address: [facility] [place] Personnel Name: Kylah Garcia MD Address: Address: [facility] [place] [address] Personnel Name: Kylah Garcia MD Address: Address: [address] [place] [address] Personnel Name: Kylah Garcia MD Address: Address: [address] [place], [place] [address] [address] FOR RECORDS PERTAINING TO PATIENTS WHO [...] BE BASED ON THE PRIMARY CLINICAL RECORDS. [facility] [employer] [facility]. provides no warranty or guarantee of the accuracy or completeness of information in this document.
--- NOTE | 2024-08-13 14:24 | XR_ITS ---
[facility] [place] [id number] Patient Name: INDIANA ZABALA MRN: [id number] date: 1940 Sex: M Assigned Patient Location: LAB Current Patient Location: LAB Accession/Order Number: [id number] Exam Date: 08/13/2024 14:35 Report Date: 08/13/2024 15:14 At the request of: CARRI RAHMANRAAJMAL Procedure: XR ribs RT 2V EXAMINATION: XR ribs RT 2V HISTORY: Right Thoracic Pain COMPARISON: No relevant comparison available. FINDINGS: RIBS: Mildly suspicious fracture of the posterior lateral right 11th rib. LUNGS: No appreciable pneumothorax or pleural thickening. OTHER: Negative. XR/XR ribs RT 2V IMPRESSION: 1. Acute, mildly displaced right 11th rib fracture. 2. No acute cardiopulmonary process. Electronically authenticated by: ALINE SALAZAR Date: 08/13/2024 15:14
--- NOTE | 2024-08-13 14:24 | XR_ITS ---
[facility] [place] [id number] Patient Name: INDIANA ZABALA MRN: [id number] date: 1940 Sex: M Assigned Patient Location: LAB Current Patient Location: LAB Accession/Order Number: [id number] Exam Date: 08/13/2024 14:35 Report Date: 08/13/2024 15:11 At the request of: ANDRIUS GIEDRAITIS Procedure: XR lumbar spine min 4V EXAMINATION: XR lumbar spine min 4V, XR thoracic spine 2V HISTORY: Lumbago ; low back pain; lower right rib pain COMPARISON: XR lumbar spine 03/20/2024 FINDINGS: BONES: Thoracic spine: Mild left convex curvature. Mild superior endplate irregularity of T9. Slight anterior wedging of T11 and T12 vertebral bodies. Lumbar spine: Slight right convex curvature lumbar spine. Skin surface marker localizing area of pain is posterior to T12. Mild anterior wedging of T12 without increased irregular density; unchanged. Grade 1 anterior listhesis of L4 on 5. Moderate degenerative facet arthropathy L3-4 through L5-S1. Bone encroachment on the neural foramen at L3-4 through L5-S1. DISC SPACES: No significant disc height narrowing, subluxation, or endplate abnormality. PARASPINOUS: Incidentally noted is anterior mechanical fusion at 2 separate cervical spine levels. OTHER: Negative. XR/XR lumbar spine min 4V IMPRESSION: 1. Patient's level of pain corresponds to T12. 2. Mild superior endplate irregularity of T9 and mild anterior wedging of T11 and T12; age indeterminate mild compression fractures. 3. Stable grade 1 anterior listhesis of L4 and multilevel moderate degenerative facet arthropathy of lower lumbar spine. Electronically authenticated by: ALINE SALAZAR Date: 08/13/2024 15:11
--- NOTE | 2024-08-13 14:24 | XR_ITS ---
[facility] [place] [id number] Patient Name: INDIANA ZABALA MRN: [id number] date: 1940 Sex: M Assigned Patient Location: LAB Current Patient Location: LAB Accession/Order Number: [id number] Exam Date: 08/13/2024 14:35 Report Date: 08/13/2024 15:11 At the request of: ANDRIUS GIEDRAITIS Procedure: XR thoracic spine 2V EXAMINATION: XR lumbar spine min 4V, XR thoracic spine 2V HISTORY: Lumbago ; low back pain; lower right rib pain COMPARISON: XR lumbar spine 03/20/2024 FINDINGS: BONES: Thoracic spine: Mild left convex curvature. Mild superior endplate irregularity of T9. Slight anterior wedging of T11 and T12 vertebral bodies. Lumbar spine: Slight right convex curvature lumbar spine. Skin surface marker localizing area of pain is posterior to T12. Mild anterior wedging of T12 without increased irregular density; unchanged. Grade 1 anterior listhesis of L4 on 5. Moderate degenerative facet arthropathy L3-4 through L5-S1. Bone encroachment on the neural foramen at L3-4 through L5-S1. DISC SPACES: No significant disc height narrowing, subluxation, or endplate abnormality. PARASPINOUS: Incidentally noted is anterior mechanical fusion at 2 separate cervical spine levels. OTHER: Negative. XR/XR thoracic spine 2V IMPRESSION: 1. Patient's level of pain corresponds to T12. 2. Mild superior endplate irregularity of T9 and mild anterior wedging of T11 and T12; age indeterminate mild compression fractures. 3. Stable grade 1 anterior listhesis of L4 and multilevel moderate degenerative facet arthropathy of lower lumbar spine. Electronically authenticated by: ALINE SALAZAR Date: 08/13/2024 15:11
== END 2024-08-13 14:08 | disposition home or self-care (01) ==
LOC: LAB 14:08
PROVIDERS: PCP Family Medicine; Visit Provider Anesthesiology
DX: M47.816 Spondylosis without myelopathy or radiculopathy, lumbar region (principal); M54.6 Pain in thoracic spine; G89.29 Other chronic pain; M54.50 Low back pain, unspecified; S22.31XA Fracture of one rib, right side, initial encounter for closed fracture
CPT/HCPCS: 71100; 72070; 72110; G0463

== ENCOUNTER 2024-08-14 01:22 | Outpatient (RCR) | payer OTHER, SELFPAY | END 2024-09-13 23:08 | disposition home or self-care (01) | LOC: MM 01:22 | PROVIDERS: PCP Family Medicine; Visit Provider Internal Medicine | DX: Z51.81 Encounter for therapeutic drug level monitoring (principal); Z79.01 Long term (current) use of anticoagulants; I48.20 Chronic atrial fibrillation, unspecified | CPT/HCPCS: 85610; G0463 ==

== ENCOUNTER 2024-08-16 10:19 | Outpatient (OUT) | payer OTHER, SELFPAY ==
--- OUTSIDE RECORDS SUMMARY | 2024-08-16 10:40 | XMS_ITS | CCD ---
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 Name Role Phone Jada Rene Unavailable Unavailable Primary Care Provider Yehuda Rene Jada Endy Attending Unavailable Edgard Jada [...] Attending Unavailable MD Kylah Garcia Attending Unavailable Kashif Barntet Referring Unavailable Kashif Barnett Attending Unavailable Kashif Barnett Admitting Unavailable Kylah Garcia Admitting Unavailable Kylah Garcia Attending Unavailable Kylah Garcia Attending Unavailable Kylah Garcia Attending Unavailable Kylah Garcia Attending Unavailable Kylah Garcia Attending Unavailable Kylah Garcia Attending Unavailable Kylah Garcia Attending Unavailable Davie Vargas Attending Unavailable Kylah Gacria Referring Unavailable Davie Vargas Attending Unavailable NONE, XXXX Referring Unavailable Kashif Barnett Attending Unavailable Kashif Barnett Admitting Unavailable Allergies Allergy Classification Reported Allergen(s) Allergy Type Date of Onset Reaction(s) Facility (2 sources) No Known Medication Allergies; Translations: [No Known Medication Allergies] Propensity to adverse reactions (disorder) [facility] Repository Medications Current Medications Medication Drug Class(es) Dates Sig (Normalized) Sig (Original) acetaminophen 325 mg / HYDROcodone bitartrate 5 mg oral tablet (1 source) Opioid Agonist Start: 03-20-2024 take 1 tablet by mouth every four hours as needed for pain [place] 325 mg-5 mg oral tablet See Instructions, for pain, 10 tab(s), Refill(s) 0, 1 tab(s) Oral q4hr PRN Pain. Duration 7 days., [facility]/pharmacy #[id number], 180.5, cm, 03/20/24 15:05:00 EDT, Height/Length Dosing, 82.5, kg, 03/20/24 15:05:00 EDT, Weight Dosing Start Date: 03/20/24 Status: Ordered atenolol 25 mg oral tablet (20 sources) beta-Adrenergic Dimitris Start: 04-20-2024 atenolol 25 mg Tab See Instructions, take 1/2 tab daily, # 30 tab(s), Refills(s) 5, Pharmacy: [facility]/pharmacy #[id number], 180, cm, 04/20/24 13:27:00 EDT, Height/Length Dosing, 82.2, kg, 04/20/24 13:27:00 EDT, Weight Dosing Start Date: 04/20/24 Status: Ordered Start: 02-22-2024 take 1 tablet by alyssa th once daily atenolol 25 mg Tab 25 mg = 1 tab(s), Oral, Daily, # 90 tab(s), Refills(s) 0, Pharmacy: [facility], 178.2, cm, 02/02/24 10:29:00 EDT, Height/Length [...] Daily, # 90 tab(s), Refills(s) 1, Pharmacy: [facility], 180, cm, 04/20/24 13:27:00 EDT, Height/Length Dosing, 82.2, kg, 04/20/24 13:27:00 EDT, Weight Dosing Start Date: 04/30/24 Status: Ordered Start: 01-18-2024 take 1 tablet by alyssa th once daily finasteride 5 mg Tab 5 mg = 1 tab(s), Oral, Daily, # 90 tab(s), Refills(s) 0, Pharmacy: [facility], 178.2, cm, 12/01/23 13:40:00 EST, Height/Length [...] Daily, # 90 cap(s), Refills(s) 0, Pharmacy: [facility], 178.2, cm, 02/02/24 10:29:00 EDT, Height/Length [...] Daily, # 90 tab(s), Refills(s) 1, Pharmacy: [facility], 178.2, cm, 02/02/24 10:29:00 EDT, Height/Length Dosing, 84.1, kg, 02/02/24 10:29:00 EDT, Weight Dosing Start Date: 02/13/24 Status: Ordered Start: 10-14-2014 take 1 tablet by alyssa th once daily glimepiride 2 mg Tab 2 mg = 1 tab(s), Oral, Daily, Refills(s) 0 Start Date: 12/01/23 Status: Ordered Comment on above: Take 1 tablet by alyssa th once daily. levothyroxine sodium 0.025 mg oral tablet (20 sources) l-Thyroxine Start: take 1 tablet by mouth once daily levothyroxine 25 mcg (0.025 mg) Tab 25 mcg = 1 tab(s), Oral, Daily, on an empty stomach, # 90 tab(s), Refills(s) 1, Pharmacy: [facility], 178.2, cm, 02/02/24 10:29:00 EDT, Height/Length Dosing, 84.1, kg, 02/02/24 10:29:00 EDT, Weight Dosing Start Date: 02/13/24 Status: Ordered Start: 12-01-2023 take 1 tablet by alyssa once daily levothyroxine 25 mcg (0.025 mg) Tab 25 mcg = 1 tab(s), Oral, Daily, on an empty stomach, Refills(s) 0 Start Date: 12/01/23 Status: Ordered take 1 tablet by [facility] once daily in the morning Levothyroxine Sodium [...] 12/01/23 Status: Ordered take 1 tablet by [facility] once daily as needed Meloxicam 15 MG 1 tablet PRN Orally Once a day for 90 days Active omeprazole 40 mg delayed release oral capsule (20 sources) Proton Pump Inhibitor Start: 03-05-2024 take 1 capsule by mouth once daily omeprazole 40 mg Cap-DR 40 mg = 1 cap(s), Oral, Daily, # 90 cap(s), Refills(s) 0, Pharmacy: [facility], 178.2, cm, 02/02/24 10:29:00 EDT, Height/Length [...] DAILY, # 90 tab(s), Refills(s) 0, Pharmacy: [facility], 178, cm, 05/30/24 13:34:00 EDT, Height/Length Dosing, 80.2, kg, 05/30/24 13:34:00 EDT, Weight Dosing Start Date: 06/05/24 Status: Ordered Start: 02-22-2024 take 1 tablet by alyssa th once daily pravastatin 40 mg Tab 40 mg = 1 tab(s), Oral, Daily, # 90 tab(s), Refills(s) 0, Pharmacy: [facility], 178.2, cm, 02/02/24 10:29:00 EDT, Height/Length [...] activity, # 5 tab(s), Refills(s) 0, Pharmacy: [facility], 178.2, cm, 02/02/24 10:29:00 EDT, Height/Length Dosing, 84.1, kg, 02/02/24 10:29:00 EDT, Weight Dosing Start Date: 02/02/24 Status: Ordered take 1 tablet by alyssa every twenty-four hours Sildenafil Citrate 100 MG [...] DAY, # 90 tab(s), Refills(s) 2, Pharmacy: [facility]/pharmacy #[id number], 180.5, cm, 03/20/24 15:05:00 EDT, Height/Length Dosing, 82.5, kg, 03/20/24 15:05:00 EDT, Weight Dosing Start Date: 04/05/24 Status: Ordered Start: 12-23-2023 take 1 tablet by [facility] twice daily Sodium Chloride 1 g oral tablet See Instructions, TAKE 1 TABLET BY MOUTH TWICE DAY, # 90 tab(s), Refills(s) 2, Pharmacy: [facility], 178.2, cm, 12/01/23 13:40:00 EST, Height/Length Dosing, 85.5, kg, 12/01/23 13:40:00 EST, Weight Dosing Start Date: 12/23/23 Status: Ordered take 1 tablet by [facility] three times daily Sodium Chloride 1000 MG 1 tablet Orally Three times a day Active tamsulosin hydrochloride 0.4 mg oral capsule (20 sources) alpha-Adrenergic Dimitris Start: 02-22-2024 take 1 capsule by mouth once daily tamsulosin 0.4 mg Cap 0.4 mg = 1 cap(s), Oral, Daily, # 90 cap(s), Refills(s) 0, Pharmacy: [facility], 178.2, cm, 02/02/24 10:29:00 EDT, Height/Length Dosing, 84.1, kg, 02/02/24 10:29:00 EDT, Weight Dosing Start Date: 02/22/24 Status: Ordered Start: 10-14-2014 take 1 capsule by [facility] once daily tamsulosin 0.4 mg Cap 0.4 mg = 1 cap(s), Oral, Daily, Refills(s) 0 Start Date: 12/01/23 Status: Ordered Comment on above: Take 1 capsule by [facility] daily at bedtime. triamcinolone acetonide 1 mg [...] on above: Take 1 capsule by mo ut twice daily. 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] Episodic Other aftercare (3 sources) longterm (current) use of anticoagulants Episodic Other and [...] 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; Translations: [longterm (current) use of anticoagulants] Onset: 06-16-2023 Results Test Name Value Interpretation Reference Range Facil ity Ambulatory Visit Summaryon 0 08-07-2024 Ambulatory Visit Summary Ambulatory Visit Summary DARIEL AGUILERA :1940 Visit Date:08/07/2024 Ambulatory Visit Instructions Your Care Team Attending Physician - Kylah Garcia MD Primary Care Physician - Kylah Garcia MD This Is Your Medications List Turmeric (Turmeric 500 mg oral capsule) atenolol (atenolol 25 mg Tab) cholecalciferol (D3) cholecalciferol (Vitamin D3 5000 intl units (125 mcg) oral tab) cyanocobalamin (Vitamin B12) finasteride (finasteride 5 mg Tab) fluticasone nasal (Flonase 0.05 mg/inh [place]) gabapentin (gabapentin 300 mg Cap) glimepiride (glimepiride [...] AM EST With: Kylah Garcia MD Where: [address] [address]- Tuesday 1:00 PM EST With: Dixon Dubose PA-C Where[facility] 2024 8:00 AM EDT With: Where: [address] [address]- Medications What How Much When Why Instructions [...] Unchanged fluticasone nasal (Flonase 0.05 mg/ inh [place]) 1 Sprays Nasal Inhalation 2 times a [...] for choosing us for your care. Normal [facility] Family Medicine Office/Clini c Noteon 08-07-2024 Family Medicine Office/Clinic Note Family Medicine Office/Clinic Note HPI Staff Dariel is an 84 year old male presenting for one week follow up back pain IAM medrol dosepak and tramadol Steroids are done Pain characteristics: Pain location: low back Intensity:810 Onset: ongoing Medication used: steroids and tramadol, [...] day(s), # 21 tab(s), Refills(s) 0, Pharmacy: [facility]/pharmacy #[id number], 178, cm, 07/31/24 14:02:00 EDT, Height/Length [...] Oral, Daily, 1 refills Flonase 0.05 mg/inh [place], 1 spray(s), Nasal, BID gabapentin 300 mg [...] 1 r (more content not included)... Normal [facility] Comment on above: Result Comment: Elec [...] day(s), # 21 tab(s), Refills(s) 0, Pharmacy: [facility]/pharmacy #[id number], 178, cm, 07/31/24 14:02:00 EDT, Height/Length Dosing, 78.5, kg, 07/31/24 14:02:00 EDT, Weight Dosing tramadol, 50 mg = 1 tab(s), Oral, q4hr, PRN for pain, X 7 day(s), # 21 tab(s), Refills(s) 0, Pharmacy: [facility]/pharmacy #[id number], 178, cm, 07/31/24 14:02:00 EDT, Height/Length [...] Oral, Daily, 1 refills Flonase 0.05 mg/inh [place], 1 spray(s), Nasal, BID gabapentin 300 mg [...] virus vaccine, inactivated 08/02/2014 Recorded Normal [facility] Comment on above: Result Comment: Elec tronically Signed By: Kylah Garcia MD\.br\Date and Time Signed: 07/31/24 14:23 EDT Ambulatory Visit Summaryon 0 07-24-2024 Ambulatory Visit Summary Ambulatory Visit Summary DARIEL AGUILERA :1940 Visit Date:07/24/2024 Ambulatory Visit Instructions Your [...] mg Tab) fluticasone nasal (Flonase 0.05 mg/inh [place]) gabapentin (gabapentin 300 mg Cap) glimepiride (glimepiride [...] PM EDT With: Kylah Garcia MD Where: [address] [address]- 2023 9:15 AM EST With: Kylah Garcia MD Where: [address] [address]- Tuesday 1:00 PM EST With: Dixon Dubose PA-C Where[facility] 2024 8:00 AM EDT With: Where: [address] [id number]- Medications What How Much When Instructions Unchanged [...] Unchanged fluticasone nasal (Flonase 0.05 mg/ inh [place]) 1 Sprays Nasal Inhalation 2 times a [...] for choosing us for your care. Normal [facility] Family Medicine Office/Clini c Noteon 07-24-2024 Family Medicine Office/Clinic Note Family Medicine Office/Clinic Note HPI Staff Dariel is an 84 year old male presenting for ER follow up ER followup: Hospital: [place] Visit date: 07/14/24 Symptoms the patient presented [...] patient was under the dosed. Patient stated Willoughby was helping him more. Patient denies any [...] - Will do Tizanadine - Will do Willoughby for pain - Follow up in 1 week. - Will send to pain Ordered: [facility] Ambulatory Referral 2. Inguinal hernia of left side without obstruction or gangrene (K40.90: Unilateral inguinal hernia, without obstruction or gangrene, not specified as recurrent) - Pt cancelled his surgery. - NO pain at this time. - Encouraged follow up Ordered: [facility] [place] Ambulatory Referral 3. Nonsmoker (Z78.9: Other specified health status) - Please continue to not smoke Ordered: Body Mass Index (BMI) documented 3008F Current tobacco non-user 1036F Depression Screening Negative 3352F [facility] External Ambulatory Referral Most recent diastolic blood [...] q8hr, # 90 tab(s), Refills(s) 1, Pharmacy: [facility]/pharmacy #[id number], 178, cm, 07/24/24 14:57:00 EDT, [...] Oral, Daily, 1 refills Flonase 0.05 mg/inh [place], 1 spray(s), Nasal, BID gabapentin 300 mg Cap, 300 mg= 1 cap(s), Oral, Daily, 1 refills glimepiride 2 mg Tab, 2 mg= 1 tab(s), Oral, Daily, 1 refills Jantoven 5 mg oral tablet, 5 mg= 1 tab(s), Oral, Daily levothyroxine 25 mcg (0.025 mg) Tab, 25 mcg= 1 tab(s), Oral, Daily, 1 refills [place] 325 mg-5 mg oral tablet, 1 tab(s), [...] No. Househol (more content not included)... Normal [facility] Comment on above: Result Comment: Elec tronically Signed By: Adam COHN, Kylah Lopez.br\Date and Time Signed: 07/24/24 15:24 EDT Ambulatory Visit Summaryon 0 07-03-2024 Ambulatory Visit Summary Ambulatory Visit Summary DARIEL AGUILERA :1940 Visit [...] AM EST With: Kylah Garcia MD Where: [address] [address]- Tuesday 1:00 PM EST With: Dixon Dubose PA-C Where: [facility] 2024 8:00 AM EDT With: Where: [address] [address]- Medications What How Much When Instructions Unchanged [...] choosing us for your care. [facility] Family Medicine Office/Clini c Noteon 07-03-2024 Family [...] BID, 16 gram, Refill(s) 0, each nostril, [facility]/pharmacy #[id number], 178, cm, 07/03/24 10:05:00 EDT, Height/Length Dosing, 80.8, kg, 07/03/24 10:05:00 EDT, Weight Dosing gabapentin, 300 mg = 1 cap(s), Oral, Daily, # 90 cap(s), Refills(s) 1, Pharmacy: [facility], 178, cm, 07/03/24 10:05:00 EDT, Height/Length Dosing, 80.8, kg, 07/03/24 10:05:00 EDT, Weight Dosing omeprazole, 40 mg = 1 cap(s), Oral, Daily, # 90 cap(s), Refills(s) 0, Pharmacy: [facility], 178.2, cm, 02/02/24 10:29:00 EDT, Height/Length Dosing, 84.1, kg, 02/02/24 10:29:00 EDT, Weight Dosing sildenafil, 100 mg = 1 tab(s), Oral, Daily, PRN for erectile dysfunction, 1 hour before sexual activity, # 5 tab(s), Refills(s) 0, Pharmacy: [facility], 178, cm, 07/03/24 10:05:00 EDT, Height/Length Dosing, 80.8, kg, 07/03/24 10:05:00 EDT,... 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 Normal [facility] Comment on above: Result Comment: Elec [...] virus vaccine, inactivated 08/02/2014 Recorded Normal [facility] Comment on above: Result Comment: Elec [...] November and January and was hospitalized in [place] for 2 of those. He states that [...] with voice recognition artificial intelligence software, specifically [place], [employer] and or [employer]. Substitutions may have occurred due to the inherent limitations of voice recognition and artificial intelligence software. Total time spent pr (more content not included)... Normal [facility] Comment on above: Result Comment: Elec tronically Signed By: Gracy DOTY, Dixon Schumacher\Shannabr\Date and Time Signed: 05/30/24 14:29 EDT Holter [...] BY: Kashif Barnett MD ca Dictated: 05/27/2024 [id number] Transcribed: 05/28/2024 [facility] Comment on above: Result Comment: Elec tronically Signed By: Ericka COHN, Kashif Craig\.br\Date and Time Signed: 05/29/24 13:13 EDT Coding Summary.on 05-09-2024 Coding Summary. CNETVzin03QSr6mJl+P GhlYWQ+YV3AAJJsL14q sCOgpP6zL2KZRJmCRws gQVBQTElOSyIgbmFtZT 1kaXNjZXJu IC8+RW3zVJBcGrsalMB en6Z4kGR5G44vxm1dYU bvtCR8UDViMiCcivyxx 5qalEx6MGhhJhjsXdWq QUGqpC30GJI9cY97Mq4 4uCGsiRZsn4xvfEo7It ZxCOUnHZE9sFeoMYgvk 9SsULHhN95pdPLuo0Z2 IGNvbGxhcHNlOyBlbXB 9yX2mYLcbohzkz7airn qzRig9xb90yFMia2I0n UV2U1ApfwP4ORAceCAp AtfqnWRChC7jerrvj2t agximFyKyPIAaGYj4NZ r4MHCxxQdmJvYeXX57I NR0HELochDzT2EpKOBu wWvrFtC5j9M7Hb5HH7J LXluiU8YAWSNFKPrkjE Q+AF58ea64R4ZeDueqI af0PWJvJGF5uQK9zD9p CWBkTExln6D8iFH1M0B uhvAjci0re5wwPLKeKL yoJ31zyRFwh8B4NKLrk CI3SYIjbFgnPqNglX19 Oyc+KWCqkKxul6YxThy jj0ged0qlaHa8WputON JyjlVvxGnoGGL5h7EdJ e1pIZGapGO2qND6cM3w SlNsTqO1UIdcB019NdO yqQNwVhwbW49cQ2RruO A+ATTdHwy4ZGMpmAhwO A0eG5HwHSGukiaxtBLo mAxwGA3wZNIbwivtJSV bwP3aEBUhD8g1LjQbPo D0HFumY2IfTTTyandaP p54tX2nXsZhRrT8CRou L6JoeaJ8VQXjaZMjEUk tQEA6K67my1H8DPBgNT WiZLR6oNP1qD2xwHjeo jogbGVmdDsgdmVydGlj TQywKAytM586PEKreZp nPkNvZGluZyBEYXRlOi AgMDYvMjYvMjAyNDwvd GQ+CYBdGMN5wVwbIILe fOXyLHoiKz6qoBrwiFq wTM4qAZOqwcfwYQLwsR 6dXOSidVCidHcfWM7eN CJnunfcj035SxMhFET2 VUOpqNPyW1WubC2dGyF mIRVuHJBlU4VcdNQgPN qoX018NAacRlD7MGNnu iFyP3LkEKFjnPewNwB2 j3I4Ss9Ch1NenmrgQ1N qwTLrRdNkIhrqFIz0K1 RkPjwvdHI+NT23UIDhR J68SVq2GPO7sWajLIpi NSIiU3FbxV2gQjEfKWH kZGRkOyc+PHRhYmxlIH dpZHRoPScxMDAlJyBzd MajGM9xGt2wWNQqVCHe vQiiuUDpKtJps1hxYFG dEBtyFW9rbVyqZ4QcbC H3VHKkd5q5Cl88H13mU 3JvdXA+TBOtgLB2mRA0 sP8wZzEsQiN8SCauH24 2VnPdwGRoLndjk7luj3 eugBd9GoZ1DSNaseXtb PbgYNU8n2KlHl13J94t IHdpZHRoPSIxNSUiIHZ ybPyzer0ghK1uDa0+PG AfvNQ1kLU3tL3jZzOdC hN9HPvhL376NzTvhCUe Uojvo3itf6hglMj6DcF wQWQrmnHghAjjVEZ3v2 DiXp14D4ElvJplw6CpW rk1ds86uQPmp4U7xFC5 T0UvFIOkgwvfuCCtmUh fJO5yTAKzzwxtXIBgoY 1hLXQeH4p5DhGtOiV4I FpoN9FkclZ6ALTfdJAz EAUuvSIUkA7jgbcjv2v mtkjmCcXbJFTwHDu8YR t4PBVhpDbfXkYhVSA2E iZ4ZJY6tMGfwA4aqWob biqfjO0yQwt+XGE0oCQ llVCJWY8wQlxyaRR+PH ZiJWX5vNicFOizCFRdh X8sLMIrU8q5RjUkBwF1 RSwxS6ItcjI1CAMrgXL zBGWgtGZQcO7lrymnu0 aezwkyZcMdHCGeDVp8I Dj4HPXbbPvnFcDbGXB7 TuW9ASP1cYFlcA9jrWb qnbkbnX5aMkx+QmlydG vpIFV8ODo5K1IwGpn4Y CHznMxvSJ2lmPUwROfj Nw3geTgkaGfsIB8iVHQ cddrip211JgXja0nbNQ IkoGXmQNxvYBV4B61qd 6K7VSCkNIGoHMI0mXU9 iV6eiZvqfpyrjAEysBv gdmVydGljYWwtYWxpZ2 44IPQeqUkeMcPlYTh9B 2UgGhv9WRLjxUwdXL9o pLRsPSclFt2glWesaAc jRD0rAHQlmkjhp147Dd Bnp3vbALRtxNMtXFzpQ HB0A30zt0W7FEGiONPl CLW5fRZ0rE0gxAfhalc gbGVmdDsgdmVydGljYW toYXecT473CMUoaZcbI tHtjAz3U3OwIjd3ZJYd tZabLV1ynZFaJFvvDr7 nzOafqKtxQB2yXBDodb cgu024KnGxt9qwVGVop WCvNGjiJZG0C18xu4R5 RZAaPGUpCSZ2lJA4lK1 hbGlnbjogbGVmdDsgdm WnyJgwTRgwAWmxO967Q HRvcDsnPlBhdGllbnQg QXftFDl0U3RlKlsqsZE +UQ24OSJmNX59jKDozE Ozi4cdmKs7ThVjASJxE LN1pDyxHNogg4MmITYj M20ihWGcx5V1ZJKriUb dpLCrOhEkhRG2mF7aWA fuqucoz0ixswgoAubev 9kmwu27bA78R30kVZcl ZHRoPSIzMCUiIHZhbGl cyv9czY3bYy9+PGNvbC K3aNX4rM2qOYJoKuK4M NhpM769VtXavVVyMfea c0gxi0wsjTz4YlH6AUA anpGsoBhoMQI3l3NcHb 04N47uHIflYYQzKNDtG EUuXLGpeTdaqz6owP2p Ii8+ARNvbOC0sPI7lV7 bKrQvWjV2KWmkE917Wu PncWEfYhfrX45hJ0Kce XA+YFCaIgo6RYKrnFkw BI0qpLUmFKjxMl0tWQR 2TzOtMxBmPPcaV6DxKV LveedrsherjSS2QCIzD JPlkO27Nd2ljEjvGYPm cWNInP3jjgzwh2rique qZfUxKWUwNBr1EYe4WI KjsZjxWpBaORJ8KzC5M DC8kMNzpK1ckAazlfnf qQ3rJ1SdGPPdshfdQi9 2bG2qMgMgKpT3KHowVu c+KxDANloeAv8YKDXES P90EC24iTDtw2U2jHU2 K1YyHXEokecmaszenUW 2HSNrANOsgN70qJRtSK zuNb9en3C4m094YUWxQ DFxjY83Fr0imErmALDe aPBXnS1unakia8ivkux aMhAtOLAoYJb8LNb6YJ SgtXogMjOtOHS1JeM7X XY2fJTrzP3ypPigihzi yW7uOly+MDYvMDkvMTk 0MjwvdGQ+CUXpUPI8kR bxTZmiLJUinT0aETJiL 5f4XzBwFbJ3OJdnJ0Df SAKptlpfVf67vW7sLeW cLdC9YKemO1ByweU5CT SyoVFtYDlnYUC6L46rj 2D1TOHiRJGgHZR4hQE3 fB6vzLqnpjmbkRArxPr gdmVydGljYWwtYWxpZ2 46IHRvcDsnPjgyIFllY TMfDN77FR26kIBmd1Q4 gJZ2J1YwYOIkvnmvomz wySG2TBZmINLobH15hU NgLXquNj4ej9Z1u274T QNyMIJjwZ47Ga2roBmc WPUcqLARjW7uutook7o yhbhqTlEiDTRbUIe1AQ e3JFEnfEnyNdXrEGG9A uK2SHL8nBOpaH7rwEay uhyttA2yKpa+TWFsZTw vdGQ+RIInUTX1iLnxMI wpGCLzsP6iIZSlX4j6O hVpEhH8LSlwX3FoETZe yqvgHm63uU6eQuUqNjP 8ZScdK7TsvhR2VFFdlI XuIEmcFCZ5F51pi5D7U PIqNRYfJLR6pKN8gN5d bGlnbjogbGVmdDsgdmV elHquZGvlTPryD824CX NoeDfhDz05cTIhiOnzi cM1J2LwLwtbsRB+PC90 ZMRzXN71zEUakWRlm1d oeFr6BuWtLZPlICB7hO hcQDvjt8IvBPTeV42jx CKhp0O9IUIkdUpalMYu WuCopGT7yL4zUDmswge di9qcxahhCreuh5mrzn 47aF74A54aRKxaBJXwT VDmGTSlOEOiuVlxcs5k hK8gSr6+QYCbfXP8iYT 3vX8iUfHnAmR6EDdkP3 68AoXufBIlKbrwx7ycm 5lnfKw9EvFfHSHnzqHd dSntUDO5a0RxPj72A97 sIHdpZHRoPSIyMCUiIH PikRfcap1ynW9oPh7+P T1jg7pcry61qV42nNH+ IGRbTNY8pNfuOGspEIH ibW6uRYgvXaR4PJJtCs EdqZ05sBWwZWgyDh2is PtskCbpRE3fPTFxxewo x192DjCwk5swMNAcuOU bCCucDYB2F64ns4O1JI WvOQEfCFN8bSO4eZ0no GlnbjogbGVmdDsgdmVy lHljZSknPWnvA685TFO fzPjdTfAkuYLfN7psjj ASGO9lJtstyAO+PHRkI IA4gNwsLVhwCEWyxG5k AUHvF6q2BkKkTlY2ONw qI8EnsdF1KADtiSHwBB LmxCZSeV1roslph1gts nzsFiGzTRSyJDu6ZDc7 XTGpdWaxJkXzTHB9EkY 5AHI0aUZuvX3lvYonyb kqvS0uIzw+RklOOjwvd GQ+UICvNMX7qSzhMOea IXShcR5wAOFoE0n6XkD yVsN1FRtgI0SemuG1OD NggPTaXIVweTUEcN3yp myva1igjoanMhLzKNAh HNu6LEr2BTStwOjkExQ kOGA5KuU0TGM1iPNipM 6fnAggsvzdtB4yVes+T VJOOjwvdGQ+PHRkIHN0 jPrqAPelSLLmnU1nUQV fP5m2PfOwXmJ1JEotQ6 QfjnY5FEBlfZWoVAWvh PKQpH9sgueig6tazjig WyZmLUOwRIp4IZo7WXG xtEylJaKaSRZ4LqK2XA W7eHPqtD7tkDxdjxmjc G9wOyc+QXO5LHK4DI33 RY60M3YcArpqfTMyxAU +PHRhYmxlIHdpZHRoPS dvCOEzSlJtjMjjWZ5wB p7kTCAhAQYdvKaueGUr XdZtc8uwOSUtL (more content not included)... Normal [facility] Coding Summary.on 05-08-2024 Coding Summary. BAKHTftn51GSi6hEy+P GhlYWQ+WP2LGMBiD14b tDWxcM5kT4YVCPdKEhe gQVBQTElOSyIgbmFtZT 1kaXNjZXJu IC8+GK7fAVZcCnccnZI vp9E7nVL1W48hfq6aQU xtmDM1KHCtLhOpwyfti 6tswEa5RLviKmxoPxUf HLMpfK86NEC1pV23Sg4 4iKUqfFDwy3hsfFe8Wx UxYKBcKTT3yZqyDGjmx 9AwXWVuK34dkEXpz8Z7 IGNvbGxhcHNlOyBlbXB 3bC1wFSuvjsqmj1upwf ypNtz1ha71nTGxn9U1l NV7J3IvieJ8XNAdjWWx FbxqnSTZyX1npufis0s eqbeiOzQnQMUfDZl4VY e4YFDxfUvsUsDiJZ96K TW4IPIqltUxE0ZkSSTz lIsvKxU0j2K9Jq9WY6P ZXdicN5JZUXKJIMjfjC Q+EI34lv84E8XeYaxyP ks7THOfPWX5iWV1fD7b HOCgJVkzv0L9iDN5P4P gmpUwri6ri2jqZNZdMK nuP34qfEKzu8I2IEDro IZ4VNWshTunBrFipV88 Oyc+JXXhmFxql9YqQzr el5bqq0yhpDk6SiinOB HyrcGuqUdhENQ5e4TcB e6jPLLinYX5iIP2uH7v ShKbObO2NQigJ812LyN rbJLeJnzlD34vG3FugQ A+LACpHjm6ITWcwHmyP O4sA4IeWRRqpgeqiBGp gFrcLH1nFZOpjudrSLR ppG0pHRFeS3u8HsKuOi X0WHdvI3KzWZHcnamqD m70hN0cOvIrBaK8NInj L3HipyF7FQBxcWLcDGa dBDZ0P53fn1M8GRJdII HbPCP8eMK5pN5jmWmhi jogbGVmdDsgdmVydGlj HEvvOCmaH008LMJrsXk nPkNvZGluZyBEYXRlOi AgMDYvMjUvMjAyNDwvd GQ+VKKsCFO7uPkbKPDl eEYeFDxxMn9xoKfveQz jQZ0yZMTjlxrsQFLuxI 1aJZVwpKEsiKpeYV9cS NWenpjss109EgXcETO4 BRDrsZLsW3MttS2aSuL zIAYvCXYyI8LjyXOsOS cxE693EXfnUcC0GXNit rLxB8CtSYEafUzxJyL5 i6L1Kz1Nd3XmfexcZ1I oxORsFbFgCkyqEHh7T3 RkPjwvdHI+BN60ESMvE V45NCl6PXO0sXctREpz HDRyY6OqgR9oOeMcHIM kZGRkOyc+PHRhYmxlIH dpZHRoPScxMDAlJyBzd FdhLJ0mEp4iYRQhATPh dFoylSHqQtIjg1vbCHT eORwtZT4aoOorP6SovA K9HWXmc4n3Ke25P62xD 3JvdXA+TITwmYA0kPN5 lN7yOuRoNiY9DNsjF01 3UvHcnANwJztkp8aag3 lytWf9LlJ1ICAyzeVau XutWIP8r7FpVo30H67x IHdpZHRoPSIxNSUiIHZ ysKbykg8pmD7wLj4+PG SwjON5pTK1tR4eEyPfO uB7VEfdI490NoAjzUTg Gnbxa4pft4rioCj1XbB qBGStveRizOdbAQD4s6 XvIg00M8CrtKtov1SdM gj1yu76eBPah0D3iLZ8 B3YnTCWpazezvAPsvKg yJT1uDWEnyxjzAUXtbL 7mYGSvD9u3YzPaCkP6B BkmB8UruxK0DLHqqRXp TKGqpBQHrG5qorifd2u eizdnCyZeJRCtENt5TM b7PDDddNauRsNfLMT4J rS2KVJ8yKMgvE1xqBmr dranuU7jRhc+XCS9zAR muSKDTM8xPfedwOR+PH QeSZQ9kZneUQbtASNki A8oDHEeP8n2MsNdSmA1 SMfhL5KbyxB1BGSzlRE jUMPoxCCJlJ0upmkdx2 zlyeilCxEmDYFfWTx2R Qs9UASmjPhkKkYrFKJ2 VfU5FSP4jBDrkD2tsQj yehuwhC7xYsz+QmlydG sdBRC0PTi3H4OuMwb8T NVdiIenQI2zyRPbLTcy Ou5vaVdrwLopEI4dOXH zskfad122EcFct2nePG GpsHVmPXetDCT9T87qp 6D4BYToPDNrMVO9oXP7 pD9fsGlbipofoRMczYl gdmVydGljYWwtYWxpZ2 90MKKruEokWnYwGKb0D 7SfTvx8VOJbuTuvPE5y hDTjHOdpLw3umBkdkVk yVE9yIPNqwhsow426Nt Qhh4aaLQXwnHAvUAvuM BE6G07rk1X0TAFmCXHh SOC1wIK8pW9laJxnrra gbGVmdDsgdmVydGljYW wjEVflV417NFBjuRdvY bGluMj2I9VwHwl0TZPi pEqzCT0voEYfTCopRv7 ltTtioSjfDT7bTQWrpk ggl976ZuDos7doUHPuo SVfGOajMUM0F98cm7U3 AQZxCWMeLRR6mYS5qC3 hbGlnbjogbGVmdDsgdm ZebBmdBHjsANreT638B HRvcDsnPlBhdGllbnQg XOqfNFw4T7HpPsegaYV +JH51GMRaDV38pAJphV Php3mzlCg2YcFoXYYxT EN0cZbzQCidk6LkIJBv R07cdSDor8U7AHTxuLx blHMwRtDeaDT5eP7gTZ ycshoyj5ghevdzVqywf 4wuol73zR92O17aCYzj ZHRoPSIzMCUiIHZhbGl nqo4elG3aXc4+PGNvbC P4qWY4wZ8hUZGsOlD1B XfnX518MoQceQReUemf k6ldp2mwxPa3EnA7TUV cnjCvzKhcDBS5n5NfLj 58S06zDFmqKPBcYVShT JXkJPCdlOrgni6iqM7g Ii8+PFDtpOR6fFY0fE8 fJpWbMtZ0GWipU513Nh ElpXCpZpilJ81eV9Wbs XA+DURiEzk5NBUinRne OO9ciYUtVAcvBl4cGCI 3KiAnLfWwTJkwX2EvLN GsozehaprvtPT0BSRcI JDhxY55Cw8csIfsNQMe uMQMmX2bmdcfk7eldce nMqHpGBKoMOt3XGt4AI TgqEjbUvOxASU5PiQ4I YQ7oGUqmL5iqCiehqcq mR1uX8IkAMNpldffPd6 0iV8nRlPrPbC7SHexNh c+BqZHNvruHn4YNJISF H08SG31dBLbt4N2sZJ5 E3UwDOTagjllmumozMP 2BTAdCRQbwW20uTMfMT wnIr1by5X5o018GSJbI VGdxO58Vq8dtSgiWSOj kISQzN0rzwxcw0hmcvh iRbKeEUVlTIa7BUv4OK ZjxLkfVrGqWMY4CjB6H LI4iMFgzW7tpLuuzibh yB5qKxj+MDYvMDkvMTk 0MjwvdGQ+DACrNDV9xL xhWZnrWSOjaE7oJKNtH 0e1VsZiPbC3WJbxZ2Fw ACQmjzdbCz28pD0xWaZ xKpV4OCubG7DzetR8DT GmmTLzIAuzAUY1U90da 1X8HNSzSTOtSRO9gPI2 mS5ayEhgcqyuuGHfyBf gdmVydGljYWwtYWxpZ2 46IHRvcDsnPjgyIFllY YSoFL73BK74iPJku4G3 jIA8A9EwDEKrvacbxnw usOF8VLMvUYJodU30jY VtSMhnMk9jw9G1y863A XKgLOGcgI66Cn1axYpn ULMvkAHEiV8sirhpk4e snkfcLqKsYSXnYNm3WI g5RTEamQmzDuPuCDC1W qP9HUP9yOQnlV8cuHvq dgrhpW8nXxi+TWFsZTw vdGQ+FPPnYWN3bUofZG hsBXNtzE7yIAKdF0w2C rJfDsB9KLhcA2SxWJIv revhJu01uV8jFmLfWiX 5TEqyY7HmcmP6IMMsvI CsRDfhZGV8T20wq6M2A XBdSVXoKYE5oOD8zV8x bGlnbjogbGVmdDsgdmV kuDslVHgnQYkeX433JW JelOkkHzgkLePRpy2jY W2yIwinyRU+IM08ul06 T5FjDrcbGft4TLIjAVZ 4fIJ0eJ4pHFUcHJsgq7 N9oLT2K9SelvFmmy1os 4rpOBFoDNxhD29poILj w3X5BUXmoGX5BLCfsWv eMdQmeF43Rza+PGNvbG suw1KrYhwyb0xny3vmy Du4LiVmXNQfxjPouKbh SLX4n5JkBl93R61sGJg pZHRoPSIzMCUiIHZhbG pqck4jwN8mHs6+PGNvb XJ5zNF0mD9yMoEdCxZ6 EGmuF290AmFotFFwJyj qa8wln5gmoGj6LlHbQB YpfyGkxNbkSHJ3d4TeR c91G7YmeVmzz6WwZqx3 ce41xUWha0J3pGJ7M6E hZGRpbmctbGVmdDogMC 1rCRCmhdgdGESrgW5oM IPqR7e7SkJxXwR5CVsw G9MaulW3YFHwhRQqJFB evFZXuE3jxhbte5togj nyWrMsVXUiFYk5CPa9B RFurGpwGoFwBDY6QqH5 EBZ6hUIbpF4lpJwrltj fzF7vApd+TIc7c0tfnA AyXA0zeCG6GK59WH29q NWeo6W5kRQ4H0XxIXAg tpehhewphVD1RNNfSVK qsL21Re8emGflNi4kHG RtHNJ3SAYmhOPjM2Wug B1nRuMuGNZyNCYzF2Ae zKAjMNweC502AXbvIgN 5AFKghzVrB0QkMUJitP ydQaT8d1X9Yh1FCU38A T98QA89nCNgz4Y9pNP5 V8GzARPmgijedcnfhUK 1IULqXTSojA68Zl5tlI kgJu1yGGZtFWS8FXEwi WMuX0CqkO7qFoKfDKSk IGBmY9CtnLZqKMbvF34 1YDpiLsN4PSCozyOaO1 IfXAChkIedYlH4p4B3B a2TUh00QT68LH61tJWr s3O5dTY6S4MrHYRavdf oqgynwAP2AMLfGGWlwN 86No7uoGuzWz5aOYNeO GP6HVOawNCfY8KniU1w TpCbWBPaKGOxS6SxpAU xFFssD383XKorScQ1EE HrdbEhP4OvTIJjyAlgA bG4o2U7Eg2AZGuncsn7 W6VaBltclZZ+ES80RAN vCA01oNUszJYom6esbV c2TiXeFYPtVSM2uTvoW Zoui3UmJRXlM74xiPCg j6L6DQWthGogo (more content not included)... Normal [facility] Consultation Noteon 05-07-20 Consultation Note [id number] D#1.00TIFF Normal [facility] Ambulatory Visit Summaryon 0 05-03-2024 Ambulatory Visit Summary DARIEL AGUILERA :1940 Visit Date:05/03/2024 Ambulatory Visit [...] PM EDT With: Kashif Barnett MD Where: [facility] 2023 9:15 AM EST With: Kylah Garcia MD Where: [facility] Normal [address] [address]- \.br\ Medications\.br\ What How Much When Instructions\.br\ [...] to adjust your dosage.\.br\ ? \.br\ Take vndc-uea-wvbstis and prescription medicines only as told by [...] active. Exercise regularly, as told by your 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 [facility] Family Medicine Office/Clini c Noteon 05-03-2024 Family Medicine [...] 08:24:28 EDT Procedure Dt/Tm: 03/26/2024 ; Location: [facility] ; Anesthesia Minutes: 0 ; Procedure [...] Comments: 05/03/2024 8:27 - Renetta Abdullahi LPN Krishan: Patient states he drinks a rum and [...] Renetta Abdullahi LPN - 05/03/2024 8:01 EDT [facility] Risks Grid Sexual problems : Never [...] Depression Screening (more content not included)... 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 Normal [facility] Comment on above: Result Comment: Elec tronically Signed By: Adam COHN, Kylah Cole\.br\Date and Time Signed: 05/03/24 09:15 EDT Patient [...] night-lights. ? Place frequently used items in yybv-le-cajdf places. Lower the shelves around your home [...] the way. ? Do not use floor moroccan or wax that makes floors slippery. If [...] include working with a physical therapist or monkey trainer to improve your strength, balance, and endurance. Where to find more information ? Centers for Disease Control and Prevention, [place]: www.cdc.gov ? National [place] on Aging: www.kieran.nih.gov Contact a health care [...] health ca (more content not included)... Normal [facility] Patient Education Urology Erectile Dysfunction Erectile [...] these instructions at home: Medicines ? Take rdpo-hlv-bvueedr and prescription medicines only as told by [...] include cig (more content not included)... Normal [facility] Screenson 05-03-2024 Screens [id number] 2#1.00TIFF Normal [facility] CBC w/ Auto Diffon 4 Basophils/100 WBC (Bld) 0.9 % Normal 0.0-2.0 [facility] Comment on above: Performed By: #### 2 [id number] #### [facility] [address] [place] [address] Basophils/Leukocytes Auto (Bld) [Pure # fraction] 0.0 E9/L Normal 0.0-0.2 [facility] Comment on above: Performed By: #### 2 265455 #### [facility] [address] [place] [address] Eosinophils (Bld) [#/Vol] 0.1 E9/L Normal 0.0-0.5 [facility] Comment on above: Performed By: #### 2 913581 #### [facility] [address] [place] [address] Eosinophils/100 WBC (Bld) 2.4 % Normal 0.0-8.0 [facility] Comment on above: Performed By: #### 2 [id number] #### [facility] [address] [place] [address] Erythrocyte distribution width (RBC) [Ratio] 14.4 % High 10.9-14.2 [facility] Comment on above: Performed By: #### 2 551646 #### [facility] [address] [place] [address] Hematocrit (Bld) [Volume fraction] 42.2 % Normal 37.7-49.0 [facility] Comment on above: Performed By: #### 2 157559 #### [facility] [address] [place] [address] Hemoglobin (Bld) [Mass/Vol] 14.0 g/dL Normal 13.5-17.5 [facility] Comment on above: Performed By: #### 2 108864 #### [facility] [address] [place] [address] Lymphocytes (Bld) [#/Vol] 1.4 E9/L Normal 1.0-4.0 [facility] Comment on above: Performed By: #### 2 446147 #### [facility] [address] [place] [address] Lymphocytes/100 WBC (Bld) 34.0 % Normal 14.0-50.0 [facility] Comment on above: Performed By: #### 2 522767 #### [facility] [address] [place] [address] MCH (RBC) [Entitic mass] 30.8 pg Normal 27.0-34.0 [facility] Comment on above: Performed By: #### 2 168562 #### [facility] [address] [place] [address] MCHC (RBC) [Mass/Vol] 33.1 g/dL Normal 31.4-36.0 [facility] Comment on above: Performed By: #### 2 820228 #### [facility] [address] [place] [address] MCV (RBC) [Entitic vol] 92.9 fL Normal 80.0-100.0 [facility] Comment on above: Performed By: #### 2 221387 #### [facility] [address] [place] [address] Monocytes (Bld) [#/Vol] 0.4 E9/L Normal 0.2-1.0 [facility] Comment on above: Performed By: #### 2 083284 #### [facility] [address] [place] [address] Neutrophils (Bld) [#/Vol] 2.2 E9/L Normal 2.0-7.5 [facility] Comment on above: Performed By: #### 2 842634 #### [facility] [address] [place] [address] Neutrophils/100 WBC (Bld) 53.4 % Normal 36.0-75.0 [facility] Comment on above: Performed By: #### 2 439358 #### [facility] [address] [place] [address] Platelet 166.0 E9/L Normal 150.0-500.0 [facility] Comment on above: Performed By: #### 2 318309 #### [facility] [address] [place] [address] Platelet mean volume (Bld) [Entitic vol] 9.8 fL Normal 6.4-10.8 [facility] Comment on above: Performed By: #### 2 562674 #### [facility] [address] [place] [address] RBC (Bld) [#/Vol] 4.5 E12/L Normal 4.3-5.9 [facility] Comment on above: Performed By: #### 2 655549 #### [facility] [address] [place] [address] WBC corrected for nucl RBC Auto (Bld) [#/Vol] 4.2 E9/L Normal 4.0-11.0 [facility] Comment on above: Performed By: #### 2 352337 #### [facility] [address] [place] [address] CHEMISTRYOrdered By: SYSTEM SYSTEM on 05-01-2024 Albumin [...] used for this result was chemiluminescence using [email or web address]'s Access Hybritech PSA reagent. Protein [Mass/Vol] 7.1 [...] 05-01-2024 Albumin [Mass/Vol] 4.2 g/dL Normal 3.3-5.0 [facility] Comment on above: Performed By: #### 2 540211 #### [facility] [address] [place] [address] Albumin/Globulin (S) [Mass conc ratio] 1.4 Normal 1.1-2.2 [facility] Comment on above: Performed By: #### 2 457161 #### [facility] [address] [place] [address] ALP [Catalytic activity/Vol] 83 Int._Unit/L Normal 21-98 [facility] Comment on above: Performed By: #### 2 011865 #### [facility] [address] [place] [address] ALT No additional P-5'-P [Catalytic activity/Vol] 14 Int._Unit/L Normal 6-46 [facility] Comment on above: Performed By: #### 2 862503 #### [facility] [address] [place] [address] Anion gap [Moles/Vol] 10 mmol/L Normal 6-16 [facility] Comment on above: Performed By: #### 2 784943 #### [facility] [address] [place] [address] AST [Catalytic activity/Vol] 22 Int._Unit/L Normal 5-43 [facility] Comment on above: Performed By: #### 2 531311 #### [facility] [address] [place] [address] Bilirubin [Mass/Vol] 0.9 mg/dL Normal 0.0-1.1 [facility] Comment on above: Performed By: #### 2 320286 #### [facility] [address] [place] [address] Calcium [Mass/Vol] 9.5 mg/dL Normal 8.9-11.1 [facility] Comment on above: Performed By: #### 2 835860 #### [facility] [address] [place] [address] Chloride [Moles/Vol] 103 mmol/L Normal 101-111 [facility] Comment on above: Performed By: #### 2 704321 #### [facility] [address] [place] [address] CO2 [Moles/Vol] 29 mmol/L Normal 21-31 [facility] Comment on above: Performed By: #### 2 543886 #### [facility] [address] [place] [address] Creatinine [Mass/Vol] 1.1 mg/dL Normal 0.5-1.3 [facility] Comment on above: Performed By: #### 2 720043 #### [facility] [address] [place] [address] Globulin (S) [Mass/Vol] 2.9 g/dL Normal 1.4-4.0 [facility] Comment on above: Performed By: #### 2 591432 #### [facility] [address] [place] [address] Glucose [Mass/Vol] 104 mg/dL Normal 55-199 [facility] Comment on above: Performed By: #### 2 217081 #### [facility] [address] [place] [address] Potassium [Moles/Vol] 5.2 mmol/L Normal 3.5-5.3 [facility] Comment on above: Performed By: #### 2 558414 #### [facility] [address] [place] [address] Protein [Mass/Vol] 7.1 g/dL Normal 6.0-7.8 [facility] Comment on above: Performed By: #### 2 901550 #### [facility] [address] [place] [address] Sodium [Moles/Vol] 137 mmol/L Normal 135-145 [facility] Comment on above: Performed By: #### 2 597626 #### [facility] [address] [place] [address] Urea nitrogen [Mass/Vol] 15 mg/dL Normal 5-21 [facility] Comment on above: Performed By: #### 2 188607 #### [facility] [address] [place] [address] Urea nitrogen/Creatinine [Mass ratio] 14 No Units Normal 10-20 [facility] Comment on above: Performed By: #### 2 663569 #### [facility] [address] [place] [address] Consent for Treatmenton 04-14 Consent for Treatment [id number] 72#1.00TIFF Normal [facility] HEMATOLOGYOrdered By: SYSTEM SYSTEM on 05-01-2024 [...] Remisol Heme Lab Reportson 05-01-2024 Lab Reports [id number] E#1.00TIFF Normal [facility] Lipid Panelon 05-01-2024 Cholesterol [Mass/Vol] 168 mg/dL Normal 120-200 [facility] Comment on above: Performed By: #### 2 270300 #### [facility] [address] [place] [address] Cholesterol in HDL [Mass/Vol] 54 mg/dL Invalid Interpretation Code [facility] Comment on above: Result Comment: '>= 60 LOW RISK' '<= 40 HIGH RISK' Performed By: #### 2 173107 #### [facility] [address] [place] [address] Cholesterol in LDL [Mass/Vol] 99 mg/dL Normal <=129 [facility] Comment on above: Performed By: #### 2 067284 #### [facility] [address] [place] [address] Cholesterol in VLDL [Mass/Vol] 16 mg/dL Normal 7-40 [facility] Comment on above: Performed By: #### 2 373580 #### [facility] [address] [place] [address] Triglyceride [Mass/Vol] 78 mg/dL Normal <=149 [facility] Comment on above: Performed By: #### 2 845576 #### [facility] [address] [place] [address] Nurse Consultation Noteon Nurse Consultation Note Reason [...] influenza virus vaccine, inactivated 08/02/2014 Recorded Normal [facility] PSA Screen, Totalon 05-01-20 24 Prostate specific Ag [Mass/Vol] 1.3 ng/mL Normal 0.1-3.5 [facility] Comment on above: Result Comment: The concentration of PSA determined by different manufacturers can vary due to differences in assay methods and reagent specificity. Values obtained from different assay methods cannot be used interchangeably. The methodology used for this result was chemiluminescence using [employer]'s Access Hybritech PSA reagent. Performed By: #### 1 [id number] #### [facility] [address] [place] [address] eGFRon 05-01-2024 eGFR 67 mL/min/1.73 m2 Normal >=59 [facility] Comment on above: Order Comment: Order added by Discern Expert. Performed By: #### 1 [id number] ####[facility] [address] [place] [address] Physician Orderon 04-23-2024 Physician Order [id number] 859#1.00TIFF Normal [facility] Consent for Treatmenton Consent for Treatment [id number] #1.00TIFF Normal [facility] Heart and Vascular Office/Cl inic Noteon [...] or orthopnea. 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 with software sales executive, location unknown, however, has not been followed [...] influenza virus vaccine, inactivated 08/02/2014 Recorded Normal [facility] Comment on above: Result Comment: Elec tronically Signed By: Ericka COHN, Kashif Perez.br\Date and Time Signed: 04/20/24 13:49 EDT Insurance Correspondenceon 0 04-20-2024 Insurance Correspondence [id number] 559#1.00TIFF Normal [facility] Consultation Noteon 04-10-20 Consultation Note [id number] 1#1.00TIFF Normal [facility] Postoperative Documentson Postoperative Documents [id number] 811#1.00TIFF Normal [facility] Consultation Noteon 03-29-20 Consultation Note [id number] B4#1.00TIFF [facility] Lab Reportson 03-29-2024 Lab Reports [id number] DF#1.00TIFF Normal [facility] RAD - MISCon 03-29-2024 RAD - MISC [id number] 19#1.00TIFF [facility] IntraOperative Documentson 0 03-28-2024 IntraOperative Documents [id number] 516#1.00TIFF [facility] Consent for Anesthesiaon Consent for Anesthesia [id number] 28#1.00TIFF [facility] Discharge Instructionson Discharge Instructions [id number] 47#1.00TIFF [facility] IntraOperative Documentson 0 03-27-2024 IntraOperative Documents [id number] 36#1.00TIFF [facility] Main OR Intraoperative Recor don 03-27-2024 Main OR Intraoperative Record IntraOp Document Type FT Summary Primary Physician: Axel Hernández DO Finalized Date/Time: 03/27/24 09:11:12 Pt. Name: DARIEL AGUILERA Mary/Sex: 1940 Male Med Rec #: [id number] Physician: Axel Hernández DO Financial #: [id number] Pt. Type: A Room/Bed: [facility] Admit/Disch: 03/26/24 09:11:44 - 03/26/24 14:30:00 [...] T Role Performed Anesthesiologist Surgeon - Primary Radiology Resident - Primary Bracelet And Brooch Maker Time In 03/26/24 12:20:00 03/26/24 12:20:00 03/26/24 [...] Marium Peña RN, Rich Nickerson Role Performed ELECTRIC PILE DRIVER OPERATOR/SA Scrub - Primary Staff - Other Time [...] and tissue Entry 1 Skin Integrity Intact, [place], Warm, and Skin Abnormality No Dry Outcomes Met? Yes Last Modified By: Ambrocio Borges 03/26/24 12:36:42 Post-Care Text: The patient is free from signs and symptoms of injury caused by extraneous objects Patient Positioning FT Pre-Care Text: Identifies physical alterations that require additional precautions for procedure-specific positioning, verifies presence of prosthetics or correctiv (more content not included)... Normal [facility] Operative Reporton Operative Report SURGERY DATE: 03/26/2024 SENIOR ANALYST DEVELOPER: Chica Jolley C.F.A. PREOPERATIVE DIAGNOSIS: Right little [...] patient's condition satisfactory Deanna Weller Dictated: 03/26/2024 [id number] Transcribed: 03/26/2024 cc:Kylah Garcia M.D. [facility] Comment on above: Result Comment: Elec tronically Signed By: Axel Hernández DO\.br\Date and Time Signed: 03/27/24 07:40 EDT Preoperative Documentson Preoperative Documents [id number] 14#1.00TIFF [facility] Progress Note-Physicianon Progress Note-Physician Patient: DARIEL AGUILERA Age: 83 years Sex: [...] 2 causing vascular disease / SNOMED CT 236007148 / Confirmed Trigger finger / SNOMED CT 334723950 / Confirmed Syncope / SNOMED CT 421854746 / Confirmed Body mass index (BMI) of 25.0-25.9 in adult / SNOMED CT 5617871051 / Confirmed Osteoarthritis / SNOMED CT 1690406567 / Confirmed Encounter for surveillance of abnormal nevi / SNOMED CT 4047983909 / Confirmed Laceration of head / SNOMED CT 6314234379 / Confirmed Hyponatremia / SNOMED CT 921550704 / Confirmed Hyperlipidemia / SNOMED CT 45132499 / Confirmed Fall at home / SNOMED CT 30139677 / Confirmed ED (erectile dysfunction) / SNOMED CT 6274524526 / Confirmed Carpal tunnel syndrome, left / SNOMED CT 24899426 / Confirmed Afib / SNOMED CT 97404544 / Confirmed ASCVD (arteriosclerotic cardiovascular disease) / SNOMED CT 365280506 / Confirmed Histories Procedure history: Surgery, neck X 2 (408234178). Carpal tunnel release (464524563). Social History Social & Psychosocial Habits Alcohol 03/26/2024 Use: Current Frequency: 1-2 times per month Comment: maybe 3x/ month - 03/06/2024 08:23 - Bernarda Mark RN Substance Abuse 03/26/2024 Risk Assessment: Denies Substance Abuse Tobacco 03/26/2024 Tobacco Use: Never (less than 100 in l Smokeless tobacco use: Never . Physical Examination Airway: Mallampati classification: II (soft palate, fauces, uvula visible). Respiratory: adequate air exchange. Cardiovascular: Regular rhythm. Plan [place] [employer] Anesthesiologists (ASA) physical status classification: Class III. Anesthetic Preoperative Plan: Anesthesia General. Normal [facility] Comment on above: Result Comment: Elec tronically Signed By: Chau Cardona Jr, DO\.br\Date and Time Signed: 03/27/24 12:32 EDT Progress Note-Physician Patient: DARIEL AGUILERA Age: 83 years Sex: [...] when meets criteria ( To home ). Normal [facility] Comment on above: Result Comment: Elec tronically Signed By: Chau Cardona Jr, DO\Date and Time Signed: 03/27/24 12:32 EDT CHEMISTRYOrdered By: Sara ROP User on 03-26-2024 Glucose [Mass/Vol] 92 mg/dL Normal 55 - 99 mg/dL FT C POC Subsection Comment on above: Result Comment: Justine garcia RN/ POC Device SN [id number] 1 Invalid Interpretation Code [facility] POC Subsection POC User ID [id number] 1 Invalid Interpretation Code [facility] POC Subsection POC Username LORNA WILSON Invalid Interpretation Code [facility] POC Subsection COAGULATIONOrdered By: Toshia Tadeo on 03-26-2024 aPTT Coag (PPP) [Time] 35.8 s Normal 25.1 - 36.5 second(s) [facility] Comment on above: Interpretive Data: [...] the same coagulation reagent and instrumentation as [facility]. Currently there are no coagulation studies available worldwide for children to 14 days, and no normal ranges. Heparin therapeutic range (represented by Anti-Factor Xa activity of 0.2 - 0.4 U/mL) corresponds to PTT of 56.6 - 109.0 sec. PT Coag (PPP) [Time] 13.4 s High 9.4 - 1 2.5 second(s) [facility] Comment on above: Interpretive Data: 1 5 days - 4 weeks 1 - 5 months 6 -11 months 1 5 years 6 10 years 11 -17 years Mean: 11.2 (9.5 12.6) Mean: 11.0 (9.7 12.8) Mean: 11.0 (9.8 13.0) Mean: 11.3 (9.9 13.4) Mean: 11.7 (10.0 14.6) Mean: 11.8 (10.0 - 14.1) Pediatric Reference ranges were obtained from a study by meka Burk al. prepared from 1437 samples obtained at 7 different centers using the same coagulation reagent and instrumentation as [facility]. Currently there are no coagulation studies available worldwide for children to 14 days, and no normal ranges. Capillary Glucose POCon 03-14 Glucose [Mass/Vol] 92 mg/dL Normal 55-99 [facility] Comment on above: Result Comment: Justine garcia RN/ Performed By: #### 2 [id number] #### [facility] [address] [place] [address] Consent for Procedure/Surger yon 03-26-2024 Consent for Procedure/Surgery [id number] 421#1.00TIFF Normal [facility] Consent for Treatmenton 03-14 Consent for Treatment [id number] E9#1.00TIFF Normal [facility] Discharge Instructionson Discharge Instructions DARIEL AGUILERA :1940 Visit Date:03/26/2024 Inpatient Discharge Instructions Your Care Team Admitting Physician - Axel Hernández DO Referring Physician - Axel Hernández DO Reason for Your Visit RIGHT LITTLE FINGER TRIGGER FINGER Your Diagnosis Trigger finger, right little finger This Is Your Medications List Turmeric (Turmeric 500 mg oral capsule) acetaminophen-hydro codone ([place] 325 mg-5 mg oral tablet) atenolol (atenolol [...] AM EDT Comments: Keep scheduled appointment Where: [address] [place] [address]- [employer] (1) Medications What How Much When Why Instructions Next Dose Unchanged acetaminophen-hydro codone ([place] 325 mg-5 mg oral tablet) See instructions Trigger finger, right little finger 1 tab(s) Oral q4hr PRN Pain. Duration 7 days. Pickup at [facility]/pharmacy #[id number] Unchanged atenolol (atenolol 25 mg Tab) 1 [...] Tablets By Mouth Every day Pharmacy Information [facility]/pharmacy #[id number]: [address], [place] [id number] [phone] Problems Ongoing - Any problem that you [...] and med (more content not included)... Normal [facility] Comment on above: Result Comment: Elec tronically Signed By: Sloan KHAN, Rudy Pereira\.br\Date and Time Signed: 03/26/24 14:03 EDT H&P Updateon 03-26-2024 H&P Update [id number] 633#1.00TIFF Normal [facility] Main OR PACU I Recordon 03-14 Main OR PACU I Record PACU Phase I Document Type FT Summary Primary Physician: Axel Hernández DO Finalized Date/Time: 03/26/24 13:38:42 Pt. Name: DARIEL AGUILERA Mary/Sex: 1940 Male Med Rec #: [id number] Physician: Axel Hernández DO Financial #: [id number] Pt. Type: A Room/Bed: [facility] Admit/Disch: 03/26/24 09:11:44 - Institution: Case [...] Outcomes Met? Yes Last Modified By: Navdeep HKAN, Vicki Craig 03/26/24 13:38:31 Post-Care Text: The [...] By: Vicki Sethi RN 03/26/24 13:38 Normal [facility] Main OR PACU II Recordon Main OR PACU II Record PACU Phase II Document Type FT Summary Primary Physician: Axel Hernández DO Finalized Date/Time: 03/26/24 16:11:30 Pt. Name: DARIEL AGUILERA/Sex: 1940 Male Med Rec #: [id number] Physician: Axel Hernández DO Financial #: [id number] Pt. Type: A Room/Bed: [place] [address] Admit/Disch: 03/26/24 09:11:44 - 03/26/24 14:30:00 Institution: [...] By: Rudy Lisa RN 03/26/24 16:11 Normal [facility] Main OR Preoperative Recordo n 03-26-2024 Main OR Preoperative Record PreOp Document Type FT Summary Primary Physician: Axel Hernández DO Finalized Date/Time: 03/26/24 13:07:41 Pt. Name: CLIFFORDKassiDARIEL/Sex: 1940 Male Med Rec #: [id number] Physician: Axel Hernández DO Financial #: [id number] Pt. Type: A Room/Bed: [place] [address] Admit/Disch: 03/26/24 09:11:44 - Institution: Case Times [...] Borges 03/26/24 13:05 Ambrocio Borges 03/26/24 13:07 [facility] Monitor Recordon 03-26-2024 Monitor Record [id number] 220#1.00TIFF Normal [facility] Monitor Record [id number] 270#1.00TIFF Normal [facility] PT & PTTon 03-26-2024 aPTT Coag (PPP) [Time] 35.8 second(s) Normal 25.1-36.5 [facility] Comment on above: Result Comment: Para [...] the same coagulation reagent and instrumentation as [facility]. Currently there are no coagulation studies available worldwide for children to 14 days, and no normal ranges. Heparin therapeutic range (represented by Anti-Factor Xa activity of 0.2 - 0.4 U/mL) corresponds to PTT of 56.6 - 109.0 sec. Performed By: #### 1 [id number] ####[facility] [place] [address] PT Coag (PPP) [Time] 13.4 second(s) High 9.4-12.5 [facility] Comment on above: Result Comment: 15 [...] the same coagulation reagent and instrumentation as [facility]. Currently there are no coagulation studies available worldwide for children to 14 days, and no normal ranges. Performed By: #### 1 [id number] ####[facility] [address] [place] [address] PT & PTTOrdered By: Starr linda on 03-26-2024 INR Coag (PPP) [Relative time] 1.19 {INR} Invalid Interpretation Code [facility] Auto Coag Comment on above: Interpretive Data: [...] 3.0 ? 4.5 Performed By: #### 1 [id number] ####[facility] [address] [place] [address] Patient Education - Texton 0 03-26-2024 Patient [...] ? Doing activities that require a strong workers compensation attorney. ? Having rheumatoid arthritis, gout, or diabetes. [...] on your hand. General instructions ? Take cwqf-qur-bpenhkm and prescription medicines only as told by [...] care provide (more content not included)... Normal [facility] Ambulatory Visit Summaryon 0 03-20-2024 Ambulatory Visit Summary DARIEL AGUILERA :1940 Visit Date:03/20/2024 Ambulatory Visit Instructions Your Diagnosis Afib Fall at home Laceration of head Syncope Hyponatremia Over weight BMI 25.0-25.9,adult Your Care Team Attending Physician - Kylah Garcia MD. Primary Care Physician - Klyah Garcia MD. This Is Your Medications List [...] Appointments Tuesday 12:30 PM EDT With: Where: [facility] Tuesday 9:00 AM EDT With: Where: [facility] Invalid Interpretation Code [address] [place] [address]- \.br\ 2023 9:00 AM EDT \.br\ With: Adam COHN, Kylah Cole\.br\ Where: [facility] [place] [facility] Consent for Procedure/Surger yon 03-20-2024 Consent for Procedure/Surgery [id number] 969#1.00TIFF Normal [facility] Family Medicine Office/Clini c Noteon 03-20-2024 Family Medicine Office/Clinic Note HPI Staff Dariel is an 83 year old male presenting for ER follow up needs his andre removed ER followup: Hospital: [facility] Visit date: 03/10/24 Symptoms the patient presented [...] - Hold coumadin tomorow for surgery Ordered: [facility] Internal Ambulatory Referral 2. Fall at home (W19.XXXA: Unspecified fall, initial encounter) - 2/2 syncope - Nausea before syncope - Will refer to Cardio for evaluation of continues syncope Ordered: [facility] Internal Ambulatory Referral 3. Laceration of head (S01.91XA: Laceration without foreign body of unspecified part of head, initial encounter) - Stables removed - no issues. Ordered: [facility] Internal Ambulatory Referral 4. Syncope (R55: Syncope and collapse) - Will send to Cardio for further work up Ordered: [facility] Internal Ambulatory Referral 5. Hyponatremia (E87.1: Hypo-osmolality and hyponatremia) - Recheck BMP today - Follow up with Nephrology Ordered: [facility] Internal Ambulatory Referral 6. Over weight (E66.3: [...] influenza virus vaccine, inactivated 08/02/2014 Recorded Normal [facility] Comment on above: Result Comment: Elec tronically Signed By: Adam COHN, Kylah Lopez.br\Date and Time Signed: 03/20/24 15:31 EDT Inpatient Patient Summaryon 03-20-2024 Inpatient Patient Summary [address], [place] [address] [facility] Clinical Discharge Instructions PERSON INFORMATION Name: DARIEL AGUILERA [facility]#:[id number] PHYSICIANS Admitting Physician: Axel Hernández DO Attending Physician: Axel Hernández DO PCP: Kylah Garcia MD Discharge Diagnosis: Trigger finger, right little finger Comment: PATIENT EDUCATION INFORMATION Instructions: Trigger Finger Medication Leaflets: Follow up: With: Address: When: Axel Hernández [address] [place] [address] [employer] (1) Comments: Keep scheduled appointment Type Location Start [facility] 03/26/2024 12:30 PM 03/26/2024 12:45 PM [facility]irmed [facility] 9:00 AM 05/01/2024 9:20 AM Confirmed FM Medicare Wellness [facility] 05/03/2024 8:00 AM 05/03/2024 9:00 AM Confirmed FM [facility] 05/03/2024 9:00 AM 05/03/2024 9:15 AM [...] mg oral capsule) ubiquinone (CoQ10) Comment: Normal [facility] Outpatient Surgery Discharge Instructionon 03-20-2024 Outpatient Surgery Discharge Instruction [place] [id number] Patient Discharge Instructions PERSON INFORMATION Name: CLIFFORDDARIEL [...] THE NEAREST EMERGENCY ROOM OR CALL 911 JV Bansal JOSEPH, have received the attached patient education materials/instructi ons and have verbalized understanding: May we do a follow up call? Yes No I was present when discharge instructions were given Patient Signature Date Clinican/Nurse Signature Date Follow up: With: Address: When: Axel Hernández [address] [place], [place] [id number] [facility] (1) Comments: Keep scheduled appointment Type Location Start [facility] Surgery [facility] 03/26/2024 12:30 PM 03/26/2024 12:45 PM Confirmed FM Lab Draw [facility] 05/01/2024 9:00 AM 05/01/2024 9:20 AM Confirmed FM Medicare Wellness Subsequent [facility] 05/03/2024 8:00 AM 05/03/2024 9:00 AM Confirmed FM [facility] 05/03/2024 9:00 AM 05/03/2024 9:15 AM [...] to serve you. Thank you for choosing [facility] HERE ARE THE MEDICATION CHANGES THAT OCCURRED [...] finger ca (more content not included)... Normal [facility] ECG 12-Leadon 03-12-2024 ECG 12-Lead [id number] EC#1.00TIFF Normal [facility] ED Note-Physicianon 03-12-20 24 ED Note-Physician [id number] A7#1.00TIFF Normal [facility] RAD - CT Reporton 03-12-[address] - [address] Report [id number] 20#1.00TIFF Normal [facility] RAD - CT Report [id number] A4#1.00TIFF Normal [facility] RAD - MISCon 03-12-2024 RAD - MISC [id number] 55#1.00TIFF Normal [facility] Ambulatory Visit Summaryon 0 03-08-2024 Ambulatory Visit Summary DARIEL AGUILERA :1940 Visit Date:03/08/2024 Ambulatory Visit [...] Appointments Tuesday 1:45 PM EDT With: Where: [facility] Tuesday 9:00 AM EDT With: Where: [facility] Invalid Interpretation Code [address] [place] [address]- \.br\ 2023 9:00 AM EDT \.br\ With: Adam COHN, Kylah Cole\.br\ Where: [facility] Medicine Office/Clini c Noteon 03-08-2024 Family Medicine Office/Clinic Note HPI Staff Dariel is an 83 year old male presenting for surgical clearance Needs clearance and hold coumadin in writing and faxed to Dr Hernández at [phone] Note: he would really benefit for chronic care management if he qualifies ( he walks in here at least once a week with questions Date of surgery: March 26, 2024 Surgeon: Dr Hernández Hospital: [facility] Type of Surgery: rt little finger trigger [...] disorder) - Will send to Derm. Ordered: [facility] External Ambulatory Referral Follow-up No qualifying data [...] influenza virus vaccine, inactivated 08/02/2014 Recorded Normal [facility] Comment on above: Result Comment: Elec [...] numbers. This can be done either in [place] (U.S[place] or metric measurements. Note that charts and online BMI calculators are available to help you find your BMI quickly and easily without having to do these calculations yourself. To calculate your BMI in [place] (U.[place].) measurements: 1. Measure your weight in [...] for Disease Control and Prevention: www.cdc.gov ? [place] Heart Association: www.heart.org ? National Heart, Lung, and Blood [place]: www.nhlbi.nih.gov Summary ? Body mass index (BMI) is a number that is calculated from a person's weight and height. ? BMI may help estimate how much of a person's weight is composed of fat. BMI can help identify those who may be at higher risk for certain medical problems. ? BMI can be measured using [place]utanese measurements or metric measurements. ? BMI charts are used to identify whether you are underweight, normal weight, overweight, or obese. This information is not intended to replace advice given to you by your health care provider. Make sure you discuss any questions you have with your health care provider. Document Revised: 07/23/2020 Document Reviewed: 05/30/2020 [employer] Patient Education ? 2022 [employer]. [facility] Physician Referralon 024 Physician Referral [id number] 859#1.00TIFF [facility] XR Chest 2 Viewson 4 XR Chest [...] Signed by: Vinicius Medina M.D. Transcribed by: DP Technologist: CHRISTIE Technical Comments Radiation Dose: Ka,r in mGy = na DAP = na Normal [facility] BMPon 03-06-2024 Anion gap [Moles/Vol] 10 mmol/L Normal 6-16 [facility] Comment on above: Performed By: #### 1 [id number], 8649450, 7529077 ####[facility] [address] [place] [address] Calcium [Mass/Vol] 9.1 mg/dL Normal 8.9-11.1 [facility] Comment on above: Performed By: #### 1 9254839, 4504653, 9482523 ####[place] [address] [place] [address] Chloride [Moles/Vol] 102 mmol/L Normal 101-111 [facility] Comment on above: Performed By: #### 1 4126490, 2715790, 1151125 ####[address] [address] CO2 [Moles/Vol] 28 mmol/L Normal 21-31 [facility] Comment on above: Performed By: #### 1 6500222, 4237218, 7078305 ####[facility] [address] [place] [address] Creatinine [Mass/Vol] 1.0 mg/dL Normal 0.5-1.3 [facility] Comment on above: Performed By: #### 1 1503426, 6655684, 7385367 ####[facility] [address] [place] [address] Glucose [Mass/Vol] 98 mg/dL Normal 55-199 [facility] Comment on above: Performed By: #### 1 2388572, 3984432, 0870912 ####[facility] [address] [place] [address] Potassium [Moles/Vol] 4.3 mmol/L Normal 3.5-5.3 [facility] Comment on above: Performed By: #### 1 7206577, 8285892, 8849990 ####[address] [address] Sodium [Moles/Vol] 136 mmol/L Normal 135-145 [facility] Comment on above: Performed By: #### 1 7402592, 9237010, 1380406 ####[address] [address] Urea nitrogen [Mass/Vol] 14 mg/dL Normal 5-21 [facility] Comment on above: Performed By: #### 1 9087556, 3362067, 8578030 ####[address] [address] Urea nitrogen/Creatinine [Mass ratio] 14 No Units Normal 10-20 [facility] Comment on above: Performed By: #### 1 9336528, 4195270, 2016757 ####[address] [address] CBC w/ Auto Diffon 4 Basophils/100 WBC (Bld) 1.0 % Normal 0.0-2.0 [facility] Comment on above: Performed By: #### 1 2454762, 5321127, 6578004 ####[address] [address] Basophils/Leukocytes Auto (Bld) [Pure # fraction] 0.0 E9/L Normal 0.0-0.2 [facility] Comment on above: Performed By: #### 1 4148556, 3473583, 9692119 ####[address] [address] Eosinophils (Bld) [#/Vol] 0.2 E9/L Normal 0.0-0.5 [facility] Comment on above: Performed By: #### 1 1980811, 9959464, 2793660 ####[address] [address] Eosinophils/100 WBC (Bld) 3.9 % Normal 0.0-8.0 [facility] Comment on above: Performed By: #### 1 7476403, 6406941, 7437876 ####[place] [address] [place] [address] Erythrocyte distribution width (RBC) [Ratio] 14.0 % Normal 10.9-14.2 [facility] Comment on above: Performed By: #### 1 3717534, 6578355, 2805376 ####[address] [address] Hematocrit (Bld) [Volume fraction] 39.1 % Normal 37.7-49.0 [facility] Comment on above: Performed By: #### 1 0611074, 1411992, 7295352 ####[address] [address] Hemoglobin (Bld) [Mass/Vol] 13.0 g/dL Low 13.5-17.5 [facility] Comment on above: Performed By: #### 1 7437928, 2710593, 9341362 ####[address] [address] Lymphocytes (Bld) [#/Vol] 1.4 E9/L Normal 1.0-4.0 [facility] Comment on above: Performed By: #### 1 7897726, 5671126, 2793614 ####[address] [address] Lymphocytes/100 WBC (Bld) 31.0 % Normal 14.0-50.0 [facility] Comment on above: Performed By: #### 1 9801509, 4501133, 5330292 ####[address] [address] MCH (RBC) [Entitic mass] 30.3 pg Normal 27.0-34.0 [facility] Comment on above: Performed By: #### 1 4117685, 7961236, 4919141 ####[address] [address] MCHC (RBC) [Mass/Vol] 33.3 g/dL Normal 31.4-36.0 [facility] Comment on above: Performed By: #### 1 2471255, 0155326, 1783110 ####[address] [address] MCV (RBC) [Entitic vol] 91.2 fL Normal 80.0-100.0 [facility] Comment on above: Performed By: #### 1 4394243, 3936749, 7594682 ####[address] [address] Monocytes (Bld) [#/Vol] 0.4 E9/L Normal 0.2-1.0 [facility] Comment on above: Performed By: #### 1 0890787, 4733230, 0856563 ####[address] [address] Neutrophils (Bld) [#/Vol] 2.5 E9/L Normal 2.0-7.5 [facility] Comment on above: Performed By: #### 1 0173388, 4295322, 0287477 ####[address] [address] Neutrophils/100 WBC (Bld) 55.3 % Normal 36.0-75.0 [facility] Comment on above: Performed By: #### 1 1290051, 0322171, 3029123 ####[address] [address] Platelet 157.0 E9/L Normal 150.0-500.0 [facility] Comment on above: Performed By: #### 1 9151457, 4023419, 9911287 ####[address] [address] Platelet mean volume (Bld) [Entitic vol] 9.7 fL Normal 6.4-10.8 [facility] Comment on above: Performed By: #### 1 8252750, 9842193, 0735429 ####[address] [address] RBC (Bld) [#/Vol] 4.3 E12/L Normal 4.3-5.9 [facility] Comment on above: Performed By: #### 1 2258189, 3335169, 2373880 ####[facility] [address] [place] [address] WBC corrected for nucl RBC Auto (Bld) [#/Vol] 4.6 E9/L Normal 4.0-11.0 [facility] Comment on above: Performed By: #### 1 0667728, 7402770, 9013355 ####[facility] [address] [place] [address] CHEMISTRYOrdered By: SYSTEM SYSTEM on 03-06-2024 Anion [...] for Treatmenton 02-13 Consent for Treatment [id number] B4#1.00TIFF Normal [facility] HEMATOLOGYOrdered By: SYSTEM SYSTEM on 03-06-2024 [...] 03-06-2024 eGFR 75 mL/min/1.73 m2 Normal >=59 [facility] Comment on above: Order Comment: Order added by Discern Expert. Performed By: #### 1 2289497, 2200238, 9776611 ####[facility] [address] [place] [address] Consultation Noteon 03-01-20 Consultation Note [id number] 5E#1.00TIFF Normal [facility] Lab Reportson 02-27-2024 Lab Reports [id number] E7#1.00TIFF Normal [facility] Family Medicine Office/Clini c Noteon 02-07-2024 Family Medicine Office/Clinic Note HPI Staff Dariel is an 83 year old male presenting for 2 month follow up DM Needs refills of levothyroxine and glimiperide to [facility] Do you have any of the following symptoms? Foot Exam: none Eye Exam: due Last A1C: Hgb A1C %: 5.6 % (12/01/23 14:31:00) Statin: pravastatin 40mg questions/concerns: saw kidney specialist (Rashad) about 3 weeks ago ( no report in file) was told to stop the omeprazole and meloxicam and cut salt tablets from tid to bid. Also says [facility] sent him a letter and said you wouldn't let him have the sildenafil and he'd like to know why he can't have it Says he can't sleep on his left side, whole arm/shoulder hurts and goes numb, told years and years ago needs carpal tunnel surgery on left, (right side was done) History of Present Illness Dariel Aguilear is an 83-year-old male who presents for medication refill. The patient needs a refill for sildenafil. He also reports numbness of his left hand and fingers, which is prohibiting him from sleeping on his left side. 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 His omeprazole and meloxicam were [...] cardiovascular disease) (I25.10: Atherosclerotic heart disease of [place] coronary artery without angina pectoris) He has [...] with voice recognition artificial intelligence software, specifically Sinequa, Fincon and or [employer] World. Substitutions may have occurred due to the inherent limitations of voice recognition and artificial intelligence software. ATTESTATION: Documentation services were performed after patient or guardian consented to allow [employer] to record this visit. MELISSA health care law specialist and provider reviewed before signing. MELISSA: [...] in life (more content not included)... Normal [facility] Comment on above: Result Comment: Elec tronically Signed By: Kylah Garcia MD\.br\Date and Time Signed: 02/07/24 12:44 EDT\.br\Electronically Co-Signed By: Allie Conway\.br\Date and Time Co-Signed: 03/21/24 11:43 EDT Ambulatory Visit Summaryon 0 02-02-2024 [...] Appointments Tuesday 9:00 AM EDT With: Where: [facility] Invalid Interpretation Code [address] [place] [address]- \.br\ 2023 9:00 AM EDT \.br\ With: Kylah Garcia MD\.br\ Where: [facility] [place] [facility] Physician Referralon 024 Physician Referral [id number] 6#1.00TIFF Normal [facility] Lab Reportson 01-05-2024 Lab Reports [id number] C1#1.00TIFF [facility] Transfer Inon 12-08-2023 Transfer In [id number] F9#1.00TIFF [facility] Auth for Release of Medical Recordson 12-06-2023 Auth for Release of Medical Records [id number] E#1.00TIFF [facility] Family Medicine Office/Clini c Noteon 12-02-2023 Family Medicine Office/Clinic Note HPI Staff Dariel is an 83 year old male presenting to [facility] Establish Care: History: a fib, DM [...] records from Dr. Jada Rene. 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 He and his family relocated from [place] to [place] 7 months ago, but they originally grew up in [place]. Review of Systems PHQ Score Initial Depression [...] cardiovascular disease) (I25.10: Atherosclerotic heart disease of [place] coronary artery without angina pectoris) He will [...] with voice recognition artificial intelligence software, specifically Sinequa, Fincon and or [employer] World. Substitutions may have occurred due to the inherent limitations of voice recognition and artificial intelligence software. Documentation services were performed after patient or guardian consented to allow [employer] to record this visit. MELISSA health care law specialist and provider reviewed before signing. MELISSA: [...] Oral, Horace (more content not included)... Normal [facility] Comment on above: Result Comment: Elec tronically Signed By: Kylah Garcia MD\.br\Date and Time Signed: 12/02/23 08:22 EST\.br\Electronically Co-Signed By: Allie Conway\.br\Date and Time Co-Signed: 12/01/23 17:49 EST Lab Reportson 12-02-2023 Lab Reports [id number] 1#1.00TIFF [facility] Ambulatory Visit Summaryon 0 12-01-2023 Ambulatory Visit [...] for choosing us for your care. Normal [facility] CBC w/ Auto Diffon 4 NRBC Man 0 Normal 0-0 [facility] Comment on above: Performed By: #### 2 831600, 6824694, 26707226, 1686976, [id number] #### [facility] [address] [place] [address] Basophil Absolute 0.0 E9/L Normal 0.0-0.2 [facility] Comment on above: Performed By: #### 2 495092, 5871400, 10398655, 7511829, [id number] #### [facility] [address] [place] [address] Basophils/100 WBC (Bld) 0.4 % Normal 0.0-2.0 [facility] Comment on above: Performed By: #### 2 894860, 2592816, 00525383, 0863502, 128236705 #### [facility] [address] [place] [address] Eos Absolute 0.2 E9/L Normal 0.0-0.5 [facility] Comment on above: Performed By: #### 2 502832, 9983184, 71162062, 4402384, [id number] #### [facility] [address] [place] [address] Eosinophils/100 WBC (Bld) 2.9 % Normal 0.0-8.0 [facility] Comment on above: Performed By: #### 2 187153, 0632979, 99337241, 8348583, 493416849 #### [facility] [address] [place] [address] Erythrocyte distribution width (RBC) [Ratio] 14.0 % Normal 10.9-14.2 [facility] Comment on above: Performed By: #### 2 410961, 7694815, 39642797, 0962534, 454172119 #### [facility] [address] [id number] Hematocrit (Bld) [Volume fraction] 37.0 % Low 37.7-49.0 [facility] Comment on above: Performed By: #### 2 535880, 1904264, 77251469, 0193919, [id number] #### [facility] [address] [place] [address] Hemoglobin (Bld) [Mass/Vol] 12.1 g/dL Low 13.5-17.5 [facility] Comment on above: Performed By: #### 2 763309, 2986164, 59704555, 5171496, 829106754 #### [facility] [address] [place] [address] Lymph Absolute 1.8 E9/L Normal 1.0-4.0 [facility] Comment on above: Performed By: #### 2 951032, 0127147, 44792591, 3674886, 135903605 #### [facility] [address] [place], [place] [address] Lymphocytes/100 WBC (Bld) 29.3 % Normal 14.0-50.0 [facility] Comment on above: Performed By: #### 2 765471, 0298982, 30199857, 2174222, 096148790 #### [facility] [address] [place], [place] [address] MCH (RBC) [Entitic mass] 30.8 pg Normal 27.0-34.0 [facility] Comment on above: Performed By: #### 2 342246, 4289804, 37087403, 3508611, 606361471 #### [facility] [address] [place] [address] MCHC (RBC) [Mass/Vol] 32.8 g/dL Normal 31.4-36.0 [facility] Comment on above: Performed By: #### 2 718114, 5607210, 62307403, 4743219, 606133916 #### [facility] [address] [place] [address] MCV (RBC) [Entitic vol] 93.8 fL Normal 80.0-100.0 [facility] Comment on above: Performed By: #### 2 004078, 5402203, 82850834, 9424326, 851919077 #### [facility] [address] [place] [address] Cross Absolute 0.5 E9/L Normal 0.2-1.0 [facility] Comment on above: Performed By: #### 2 884761, 8736185, 43910680, 9397580, 686821514 #### [facility] [address] [place] [address] Monocytes/100 WBC (Bld) 7.9 % Normal 4.0-14.0 [facility] Comment on above: Performed By: #### 2 884508, 3475182, 86365863, 0593776, 192795178 #### [facility] [address] [place] [address] Neutro Absolute 3.6 E9/L Normal 2.0-7.5 [facility] Comment on above: Performed By: #### 2 731820, 9688632, 36946517, 0165723, 995030673 #### [facility] [address] [place] [address] Neutro Auto 59.5 % Normal 36.0-75.0 [facility] Comment on above: Performed By: #### 2 915472, 3885442, 36075932, 5250591, 110019679 #### [facility] [address] [place] [address] Platelet 198.0 E9/L Normal 150.0-500.0 [facility] Comment on above: Performed By: #### 2 940069, 0512445, 50367451, 9252735, 893666667 #### [facility] [address] [place] [address] Platelet mean volume (Bld) [Entitic vol] 9.5 fL Normal 6.4-10.8 [facility] Comment on above: Performed By: #### 2 440437, 5309801, 86340961, 9522367, 927313343 #### [facility] [address] 3896357 RBC 3.9 E12/L Low 4.3-5.9 [facility] Comment on above: Performed By: #### 2 782195, 2615642, 34725279, 0869369, 914025937 #### [facility] [address] [place] [address] WBC 6.0 E9/L Normal 4.0-11.0 [facility] Comment on above: Performed By: #### 2 096599, 5785068, 69110919, 9489487, 248529529 #### [facility] [address] 3896357 CHEMISTRYOrdered By: Kate Sotomayor on 12-01-2023 U [...] (Bld) [Mass fraction] 5.6 % Normal <=5.9% [facility] ChemAutoSS CMPon 12-01-2023 Albumin [Mass/Vol] 3.9 g/dL Normal 3.3-5.0 [facility] Comment on above: Performed By: #### 2 396956, 2966382, 59547502, 3355075, 839202942 #### [facility] [address] [place] [address] Albumin/Globulin [Mass ratio] 1.6 {ratio} Normal 1.1-2.2 [facility] Comment on above: Performed By: #### 2 315962, 7014820, 39500034, 4769334, 914500731 #### [facility] [address] [place] [address] Alk Phos 75 Int._Unit/L Normal 21-98 [facility] Comment on above: Performed By: #### 2 985762, 1166210, 01741443, 3777949, 998026705 #### [facility] [address] [place] [address] ALT 12 Int._Unit/L Normal 6-46 [facility] Comment on above: Performed By: #### 2 677110, 8246531, 43340570, 4259289, 592249446 #### [facility] [address] [place] [address] Anion gap [Moles/Vol] 9 mmol/L Normal 6-16 [facility] Comment on above: Performed By: #### 2 513205, 0013130, 35874282, 3431144, 450999805 #### [facility] [address] [place] [address] AST 20 Int._Unit/L Normal 5-43 [facility] Comment on above: Performed By: #### 2 653762, 7093146, 16885319, 5297512, 307859746 #### [facility] [address] [place] [address] Bili Total 0.9 mg/dL Normal 0.0-1.1 [facility] Comment on above: Performed By: #### 2 804091, 6703598, 60450778, 6212540, 755368668 #### [facility] [address] [place] [address] BUN/Creat Ratio 10 No Units Normal 10-20 [facility] Comment on above: Performed By: #### 2 852443, 2296817, 06777122, 9310090, 512133280 #### [facility] [address] [place] [address] Calcium [Mass/Vol] 8.7 mg/dL Low 8.9-11.1 [facility] Comment on above: Performed By: #### 2 215034, 3857320, 35866330, 7281082, 948543928 #### [facility] [address] [place] [address] Chloride [Moles/Vol] 104 mmol/L Normal 101-111 [facility] Comment on above: Performed By: #### 2 470031, 0264982, 55139222, 8636364, 022345097 #### [facility] [address] [place] [address] CO2 [Moles/Vol] 30 mmol/L Normal 21-31 [facility] Comment on above: Performed By: #### 2 937876, 5890387, 57943143, 0103906, 551739857 #### [facility] [address] [place] [address] Creatinine [Mass/Vol] 1.1 mg/dL Normal 0.5-1.3 [facility] Comment on above: Performed By: #### 2 309601, 1136021, 47491528, 1239439, 471425322 #### [facility] [address] [place] [address] Globulin (S) [Mass/Vol] 2.5 g/dL Normal 1.4-4.0 [facility] Comment on above: Performed By: #### 2 672271, 2656899, 03389730, 8236644, 579349807 #### [facility] [address] [place] [address] Glucose [Mass/Vol] 72 mg/dL Normal 55-199 [facility] Comment on above: Performed By: #### 2 310189, 2902642, 96534275, 5381876, 199774036 #### [facility] [address] [place] [address] Potassium [Moles/Vol] 4.2 mmol/L Normal 3.5-5.3 [facility] Comment on above: Performed By: #### 2 973749, 1644150, 54010820, 0959468, 796705700 #### [facility] [address] [place] [address] Protein [Mass/Vol] 6.4 g/dL Normal 6.0-7.8 [facility] Comment on above: Performed By: #### 2 185108, 1511363, 33782841, 0651104, 677900480 #### [facility] [address] [place] [address] Sodium [Moles/Vol] 139 mmol/L Normal 135-145 [facility] Comment on above: Performed By: #### 2 270472, 7496580, 98685794, 1652195, 155500716 #### [facility] [address] [place] [address] Urea nitrogen [Mass/Vol] 11 mg/dL Normal 5-21 [facility] Comment on above: Performed By: #### 2 351895, 8430457, 64488633, 7260222, 917473695 #### [facility] [address] [place] [address] HEMATOLOGYOrdered By: SYSTEM SYSTEM on 12-01-2023 Basophil [...] Normal 80.0 - 100.0 fL Remisol Heme Cross Absolute 0.5 E9/L Normal 0.2 - 1.0 [...] 1 Normal 0 - 0 Remisol Heme [id number] 12-01-2023 HbA1c (Bld) [Mass fraction] 5.6 % Normal <=5.9 [facility] Comment on above: Performed By: #### 2 992830, 2215348, 19906385, 8724756, 255981630 ####[facility] [address] [place] [address] Lipid Panelon 12-01-2023 Cholesterol [Mass/Vol] 156 mg/dL Normal 120-200 [facility] Comment on above: Performed By: #### 2 179665, 5399130, 35915019, 6730878, 653200928 #### [facility] [address] [place] [address] Cholesterol in HDL [Mass/Vol] 51 mg/dL Invalid Interpretation Code [facility] Comment on above: Result Comment: '>= 60 LOW RISK' '<= 40 HIGH RISK' Performed By: #### 2 216357, 3653745, 68732456, 4272501, 072531329 #### [facility] [address] [place] [address] Cholesterol in LDL [Mass/Vol] 89 mg/dL Normal <=129 [facility] Comment on above: Performed By: #### 2 529157, 7345650, 79098709, 2726791, 978216435 #### [facility] [address] [place] [address] Cholesterol in VLDL [Mass/Vol] 18 mg/dL Normal 7-40 [facility] Comment on above: Performed By: #### 2 012646, 5331069, 34135408, 2620679, 151900040 #### [facility] [address] [place] [address] Triglyceride [Mass/Vol] 92 mg/dL Normal <=149 [facility] Comment on above: Performed By: #### 2 094965, 9843542, 01973007, 3086731, 108808173 #### [facility] [address] [place] [address] U Microalbon 12-01-2023 U Microalb <2.0 Normal 0.0-19.0 [facility] Comment on above: Performed By: #### 1 305448134, 91233911 ####[facility] [address] [place] [address] U Protein/Creat Ratioon 11-14 U Creatinine 62.5 mg/dL Invalid Interpretation Code [facility] Comment on above: Performed By: #### 1 [id number], 94807723 ####[facility] [address] [place] [address] U Prot/Creat Ratio NOT CALCULATED Invalid Interpretation Code .00-200.00 [facility] Comment on above: Performed By: #### 1 045587535, 67375053 ####[facility] [address] [place] [address] Ur Total Protein <6.0 Invalid Interpretation Code [facility] Comment on above: Performed By: #### 1 [id number], 47427438 ####[facility] [address] [place] [address] eGFRon 12-01-2023 eGFR 67 mL/min/1.73 m2 Normal >=59 [facility] Comment on above: Order Comment: Order added by Discern Expert. Performed By: #### 2 322371, 5404166, 36881985, 9288743, 419446917 #### [facility] [address] [place] [address] Basic Metabolic Panelon 122 Anion gap [Moles/Vol] 8.1 mmol/L Normal 6.0-15.0 [facility] Comment on above: Order Comment: Reaso n for Exam Hyponatremia Performed By: #### C BC, BMP #### [facility] [address] [place] [address] [facility] Calcium [Mass/Vol] 9.3 mg/dL Normal 8.6-10.3 [facility] Comment on above: Order Comment: Reaso n for Exam Hyponatremia Result Comment: PERF ORMED BY: [address] [address] PATHOLOGIST ELECTRIC METER TESTER SHOP DANNY NEAL M.D. Performed By: #### C BC, BMP #### [facility] [address] Chloride [Moles/Vol] 102 mmol/L Normal 98-107 [facility] [employer] Other Comment on above: Order Comment: Reaso n for Exam Hyponatremia Performed By: #### C BC, BMP #### [facility] [address] CO2 [Moles/Vol] 32.4 mmol/L High 21.0-31.0 [facility] Comment on above: Order Comment: Reaso n for Exam Hyponatremia Performed By: #### C BC, BMP #### [facility] [address] [place] [address] [place] Creatinine [Mass/Vol] 1.07 mg/dL Normal 0.70-1.30 [facility] Comment on above: Order Comment: Reaso n for Exam Hyponatremia Performed By: #### C BC, BMP #### [place] [address] [place] GFR/1.73 sq M.predicted MDRD (S/P/Bld) [Vol rate/Area] mL/min/{1.73_m2} Normal [facility] Other Comment on above: Order Comment: Reaso n for Exam Hyponatremia Performed By: #### C BC, BMP #### [address] Glucose [Mass/Vol] 93 mg/dL Normal 70-100 [facility] Other Comment on above: Order Comment: Reaso n for Exam Hyponatremia Result Comment: [place] Glucose Reference Range is dependent on time and content of last meal. Glucose of more than 200 mg/dL in a nonstressed, ambulatory subject supports the diagnosis of Diabetes Mellitus. ADA recommended reference range Performed By: #### C BC, BMP #### [place] [address] [place] Potassium [Moles/Vol] 4.5 mmol/L Normal 3.5-5.1 [facility] Comment on above: Order Comment: Reaso n for Exam Hyponatremia Performed By: #### C BC, BMP #### [facility] [address] Sodium [Moles/Vol] 138 mmol/L Normal 136-[address] [facility] Other Comment on above: Order Comment: Reaso n for Exam Hyponatremia Performed By: #### C BC, BMP #### [facility] [address] [place] [address] [place] Urea nitrogen [Mass/Vol] 13 mg/dL Normal 7-[address] [facility] Other Comment on above: Order Comment: Reaso n for Exam Hyponatremia Performed By: #### C BC, BMP #### [facility] [address] [place] [address] [place] Calcium [Mass/Vol] 9.1568916 mg/dL Normal 8.6-10.3 mg/ dL [facility] Other CO2 [Moles/Vol] 32.81048749 mmol/L High 21.0-31.0 mm ol/L [facility] Other Creatinine [Mass/Vol] 1.81784176 mg/dL Normal 0.70-1.30 mg/dL [facility] Other Potassium [Moles/Vol] 4.52049956 mmol/L Normal 3.5-5.1 mmol/L [facility] Other Complete Blood Count Auto Di ffon 11-02-2023 Basophils (Bld) [#/Vol] 0.1 10*3/uL Normal 0.0-0.2 [facility] Comment on above: Order Comment: Reaso n for Exam Atrial fibrillation Result Comment: PERF ORMED BY: [place] [address] PATHOLOGIST ELECTRIC METER TESTER SHOP DANNY NEAL M.D. Performed By: #### C BC, BMP #### [facility] [address] [place] [address] [place] Basophils/100 WBC (Bld) 1.0 % Normal . [facility] Comment on above: Order Comment: Reaso n for Exam Atrial fibrillation Performed By: #### C BC, BMP #### [facility] [address] [place] [address] [place] Eosinophils (Bld) [#/Vol] 0.1 10*3/uL Normal 0.0-0.45 [facility] Comment on above: Order Comment: Reaso n for Exam Atrial fibrillation Performed By: #### C BC, BMP #### [facility] [address] [place] [address] [place] Eosinophils/100 WBC (Bld) 2.1 % Normal . [facility] Comment on above: Order Comment: Reaso n for Exam Atrial fibrillation Performed By: #### C BC, BMP #### [address] Erythrocyte distribution width (RBC) [Ratio] 14.0 % Normal 12.0-14.8 [facility] Comment on above: Order Comment: Reaso n for Exam Atrial fibrillation Performed By: #### C BC, BMP #### [facility] [address] [place] [address] Hematocrit (Bld) [Volume fraction] 38.8 % Normal 38.8-50.0 [facility] Comment on above: Order Comment: Reaso n for Exam Atrial fibrillation Performed By: #### C BC, BMP #### [facility] [address] [place] [address] [place] Hemoglobin (Bld) [Mass/Vol] 13.2 g/dL Normal 13.0-17.0 [facility] Comment on above: Order Comment: Reaso n for Exam Atrial fibrillation Performed By: #### C BC, BMP #### [facility] [address] [place] [address] [place] Lymphocytes (Bld) [#/Vol] 1.3 10*3/uL Normal 1.00-4.8 [facility] Comment on above: Order Comment: Reaso n for Exam Atrial fibrillation Performed By: #### C BC, BMP #### [facility] [address] [place] [address] [place] Lymphocytes/100 WBC (Bld) 21.8 % Normal . [facility] Comment on above: Order Comment: Reaso n for Exam Atrial fibrillation Performed By: #### C BC, BMP #### [facility] [address] MCH (RBC) [Entitic mass] 31.5 pg Normal 27.5-35.2 [facility] Comment on above: Order Comment: Reaso n for Exam Atrial fibrillation Performed By: #### C BC, BMP #### [address] MCV (RBC) [Entitic vol] 92.7 fL Normal 83.5-101 [facility] Comment on above: Order Comment: Reaso n for Exam Atrial fibrillation Performed By: #### C BC, BMP #### [address] Mean Corpuscular HGB Conc 34.0 g/dL Normal 32.5-35.6 [facility] Comment on above: Order Comment: Reaso n for Exam Atrial fibrillation Performed By: #### C BC, BMP #### [place] [address] [place] Monocytes (Bld) [#/Vol] 0.5 10*3/uL Normal 0.0-0.8 [facility] Comment on above: Order Comment: Reaso n for Exam Atrial fibrillation Performed By: #### C BC, BMP #### [address] Monocytes/100 WBC (Bld) 8.5 % Normal . [facility] Comment on above: Order Comment: Reaso n for Exam Atrial fibrillation Performed By: #### C BC, BMP #### [facility] [address] [place] [address] [place] Neutrophils (Bld) [#/Vol] 4.0 10*3/uL Normal 1.8-7.7 [facility] Comment on above: Order Comment: Reaso n for Exam Atrial fibrillation Performed By: #### C BC, BMP #### [place] [address] [place] Neutrophils/100 WBC (Bld) 66.6 % Normal . [facility] Comment on above: Order Comment: Reaso n for Exam Atrial fibrillation Performed By: #### C BC, BMP #### [facility] [address] NRBC% 0.1 /100{WBC} Normal 0-0.5 [facility] Comment on above: Order Comment: Reaso n for Exam Atrial fibrillation Performed By: #### C BC, BMP #### [facility] [address] Platelet mean volume (Bld) [Entitic vol] 9.4 fL Normal 6.6-10.1 [facility] Comment on above: Order Comment: Reaso n for Exam Atrial fibrillation Performed By: #### C BC, BMP #### [facility] [address] Platelets (Bld) [#/Vol] 153 10*3/uL Normal 150-[address] [facility] Other Comment on above: Order Comment: Reaso n for Exam Atrial fibrillation Performed By: #### C BC, BMP #### [facility] [address] RBC (Bld) [#/Vol] 4.19 10*6/uL Normal 3.90-5.[address] [facility] Other Comment on above: Order Comment: Reaso n for Exam Atrial fibrillation Performed By: #### C BC, BMP #### [facility] [address] WBC (Bld) [#/Vol] 6.1 10*3/uL Normal 4.1-10.5 [facility] Comment on above: Order Comment: Reaso n for Exam Atrial fibrillation Performed By: #### C BC, BMP #### [facility] [address] [place] [address] [place] Basophils (Bld) [#/Vol] 0.286114621 10*3/uL Normal 0.0-0.2 10*3/uL [facility] Other Basophils/100 WBC (Bld) 1.000 % . % [facility] Other Eosinophils (Bld) [#/Vol] 0.495803318 10*3/uL Normal 0.0-0.45 10*3/uL [facility] Other Eosinophils/100 WBC (Bld) 2.100 % . % [facility] Other Erythrocyte distribution width (RBC) [Ratio] 14.000 % Normal 12.0-14.8 % [facility] Other Hematocrit (Bld) [Volume fraction] 38.800 % Normal 38.8-50.0 % [facility] Other Hemoglobin (Bld) [Mass/Vol] 13.418940 g/dL Normal 13.0-17.0 g/dL [facility] Other Lymphocytes (Bld) [#/Vol] 1.611455676 10*3/uL Normal 1.00-4.8 10*3/uL [facility] Other Lymphocytes/100 WBC (Bld) 21.800 % . % [facility] Other MCH (RBC) [Entitic mass] 31.5000 pg Normal 27.5-35.[address] [facility] Other MCV (RBC) [Entitic vol] 92.7000 fL Normal 83.5-101 f[address] [facility] Other Monocytes (Bld) [#/Vol] 0.310768317 10*3/uL Normal 0.0-0.8 10*3/uL [facility] Other Monocytes/100 WBC (Bld) 8.500 % . % [facility] Other Neutrophils (Bld) [#/Vol] 4.456487100 10*3/uL Normal 1.8-7.7 10*3/uL [facility] Other Neutrophils/100 WBC (Bld) 66.600 % . % [facility] Other Platelet mean volume (Bld) [Entitic vol] 9.4000 fL Normal 6.6-10.1 f[address] [facility] Other WBC (Bld) [#/Vol] 6.048213524 10*3/uL Normal 4.1-10.5 10*3/uL [facility] Other Complete Blood Count Auto Diff 6.1 10*3/uL Normal 4.1-10.5 10*3/uL [facility] Other Complete Blood Count Auto Diff 34.0 g/dL Normal 32.5-35.6 g/dL [facility] Other Complete Blood Count Auto Diff 0.1 /100{WBC} Normal 0-0.5 /100{WBC} [facility] Other PSA Screen (Yearly Only)on 01-03-2023 PSA Screen (Yearly Only) 1.940 ng/mL Normal 0.000-4.000 [facility] Comment on above: Order Comment: Reaso n for Exam Prostate cancer screening Result Comment: Seri al tumor marker results determined by assays using different manufacturers or methods may not be comparable. [facility] pyroglazer and method: [employer] DXI, CHEMILUMINESCENT IMMUNOASSAY. PERFORMED BY: [place] [address] PATHOLOGIST ELECTRIC METER TESTER SHOP DANNY NEAL M.D. Performed By: #### P SAS #### [address] Prothrombin Time INRon 06-16 INR Coag (PPP) [Relative time] 2.4 {INR} Normal [facility] Other Comment on above: Result Comment: INR [...] heart valves: 3 - 4.5 PERFORMED BY: [address] [address] PATHOLOGIST ELECTRIC METER TESTER SHOP DANNY NEAL M.D. Performed By: #### P T #### [facility] [address] [place] [address] [facility] PT Coag (PPP) [Time] 27.8 s High 9.0-12.9 [facility] Comment on above: Performed By: #### P T #### [facility] [address] [place] [address] [facility] PT Coag (PPP) [Time] 27.800 s High 9.0-12.9 s [employer] Other Coding Summaryon 05-12-2020 Coding Summary CODING DATE: 05/12/2020 FINAL [facility] STATUS: Home PAYOR: Medicare MC ADMIT DX: [...] Horan Date Saved: 05/12/2020 02:18 pm Normal [facility] ED Clinical Summaryon 2019 ED Clinical Summary [facility] ? Urgent Care [address] [place] [address] Clinical Summary PERSON INFORMATION Name: DARIEL AGUILERA Age: 80 Years Sex: MALE : 1940 MRN: Acct#: Visit Reason: UC - Ear Problem; BILAT EAR PROBLEM Arrival: 05/08/2020 09:32:00 Discharge: 05/08/2020 10:15:00 LOS: 000 00:43 Check In: 05/08/2020 09:32:00 Checkout: 05/08/2020 10:15:00 Address: [facility] [place] [address] PCP: Provider, Unlisted PROVIDER INFORMATION Provider Role [...] Buildup, Adult Follow-Up: With: Address: When: [facility], [address] [place] [phone] Business (1) Comments: Please follow-up with your Doctor or Dr. Arellano, Medical Doctor decorator consultant, call their offices and make ointment to be seen in 3 days or sooner for continued care, please purchase [id number] Debrox which helps breakdown earwax, take all your medications as previously prescribed, drink plenty of water for hydration, and return back to urgent care center for any worsening symptoms, concerns, or complications. DIAGNOSIS: 1:Impacted cerumen of both ears Patient Understands: Yes - Patient/family/lpn care manager verbalizes understanding of instructions given Comment: Normal [facility] ED Patient Summaryon 020 ED Patient Summary [facility] ? Urgent Care [address] [place] [address] [id number] PATIENT DISCHARGE INSTRUCTIONS Patient Information Name: DARIEL AGUILERA Age: 80 Years Date of : 1940 Reason For Visit: UC - Ear Problem; BILAT EAR PROBLEM Arrival Time: 05/08/2020 09:32:00 Primary Care Physician: Provider, Unlisted Attending Physician: Larry Billingsley PA-C Comment: Patient Education With: Address: When: [facility], [address] [place] [phone] Business (1) Comments: Please follow-up with your Doctor or Dr. Arellano Medical Doctor decorator consultant, call their offices and make ointment to be seen in 3 days or sooner for continued care, please purchase mfaf-bch-vjyjzqb Debrox which helps breakdown earwax, take all [...] Follow these instructions at home: ? Take rufn-xiu-oerkrri and prescription medicines only as told by [...] clean them according to instructions from the pyroglazer and your health care provider. Contact a [...] 12/08/2005 Document Revised: 10/12/2018 Document Reviewed: 01/11/2018 [employer] Patient Education ? 2019 [employer] Medication Information: The exam and treatment you received today in the [facility] Emergency Department were for an urgent problem and are not intended as complete care. It is important for you to follow up with a doctor, nurse practitioner, or physician?s digital sales assistant for ongoing care. If your symptoms [...] so we can reach you if necessary. [facility] Emergency Department has provided you with a complete list of medications post discharge. Please inform your lead teller/provider of your visit and for further instruction [...] both ears (H61.23) UC - Ear Problem ([id number]) If you received any narcotics, sedation, or [...] for Disease Control and Prevention July 2014 [facility] Patient Handouton 05-08-2020 Patient Handout Patient [...] Follow these instructions at home: ? Take ucdl-afi-mdrgymc and prescription medicines only as told by [...] clean them according to instructions from the pyroglazer and your health care provider. Contact a [...] 12/08/2005 Document Revised: 10/12/2018 Document Reviewed: 01/11/2018 [employer] Patient Education ? 2019 [employer]. Normal [facility] Recordon 020 Urgent Care Record [facility] ? Urgent Care [address] [place] [address] PATIENT DISCHARGE INSTRUCTIONS Patient Information Name: DARIEL AGUILERA Age: 80 Years Date of : 1940 Reason For Visit: UC - Ear Problem; BILAT EAR PROBLEM Arrival Time: 05/08/2020 09:32:00 Primary Care Physician: Provider, Unlisted Attending Physician: Larry Billingsley PA-C Comment: Visit Diagnosis: Diagnoses This Visit Impacted cerumen of both ears (H61.23) UC - Ear Problem ([id number]) If you received any narcotics, sedation, or [...] legal documents With: Address: When: Andrés Arellano [facility], [address] [place] [id number] Business (1) Comments: Please follow-up with your Doctor or Dr. Arellano, Medical Doctor decorator consultant, call their offices and make ointment to be seen in 3 days or sooner for continued care, please purchase zlem-ekq-thipvyx Debrox which helps breakdown earwax, take all your medications as previously prescribed, drink plenty of water for hydration, and return back to urgent care center for any worsening symptoms, concerns, or complications. Medication Information: The exam and treatment you received today in the [facility] were for an urgent problem and are not intended as complete care. It is important for you to follow up with a doctor, nurse practitioner, or physician?s digital sales assistant for ongoing care. If your symptoms [...] so we can reach you if necessary. [facility] has provided you with a complete list of medications post discharge. Please inform your lead teller/provider of your visit and for further instruction [...] Follow these instructions at home: ? Take cubm-vyy-qafhbeo and prescription medicines only as told by [...] clean them according to instructions from the pyroglazer and your health care provider. Contact a [...] 12/08/2005 Document Revised: 10/12/2018 Document Reviewed: 01/11/2018 [employer] Patient Education ? 2019 [employer] Viruses or Bacteria What?s got you [...] for Disease Control and Prevention July 2014 [facility] Vital Signs Date Time Vital Sign Value Performing Clinician Facility 06-11-2024 12:48-0400 Diastolic blood pressure 78 mm[Hg] Kashif JouleXnPumodo [facility] 06-11-2024 12:48-0400 Heart rate 70 /min Kashif JouleXnPumodo [facility] 06-11-2024 12:48-0400 Respiratory rate 18 /min Kashif JouleXnPumodo [facility] 06-11-2024 12:48-0400 SaO2% (BldA) [Mass fraction] 97 % Kashif JouleXnPumodo [facility] 06-11-2024 12:48-0400 Systolic blood pressure 138 mm[Hg] Kashif Julissanus [facility] 05-30-2024 13:31-0400 Blood Pressure Location Dixon Dubose [facility] 05-30-2024 13:31-0400 Diastolic blood pressure 70 mm[Hg] Dixon Dubose [facility] 05-30-2024 13:31-0400 Heart rate 75 /min Dixon Dubose [facility] 05-30-2024 13:31-0400 Respiratory rate 18 /min Dixon Dubose [facility] 05-30-2024 13:31-0400 SaO2% (BldA) [Mass fraction] 95 % Dixon Dubose [facility] 05-30-2024 13:31-0400 Systolic blood pressure 130 mm[Hg] Dixon Dubose [facility] 04-20-2024 13:17-0400 Diastolic blood pressure 78 mm[Hg] Kashif Julissanus [facility] 04-20-2024 13:17-0400 Heart rate 62 /min Kashif Kirnus [facility] 04-20-2024 13:17-0400 SaO2% (BldA) [Mass fraction] 97 % Kashif Julissanus [facility] 04-20-2024 13:17-0400 Systolic blood pressure 138 mm[Hg] Kashif Julissanus [facility] 03-26-2024 14:30-0400 Diastolic blood pressure 64 mm[Hg] Axel Hernández [facility] 03-26-2024 14:30-0400 Heart rate 50 /min Axel Hernández [facility] 03-26-2024 14:30-0400 Respiratory rate 16 /min Axel Hernández [facility] 03-26-2024 14:30-0400 SaO2% (BldA) [Mass fraction] 98 % Axel Hernández [facility] 03-26-2024 14:30-0400 Systolic blood pressure 128 mm[Hg] Axel Hernández [facility] 03-26-2024 13:31-0400 Heart rate 54 /min Axel Hernández [facility] 03-26-2024 13:31-0400 SaO2% (BldA) [Mass fraction] 97 % Axel Hernández [facility] 03-26-2024 13:31-0400 Respiratory rate 16 /min Axel Catherine [facility] 03-26-2024 13:30-0400 Body temperature 97.34 [degF] Axel Catherine [facility] 03-26-2024 13:29-0400 Blood Pressure Location Axel Catherine [facility] 03-26-2024 13:29-0400 Diastolic blood pressure 70 mm[Hg] Axel Catherine [facility] 03-26-2024 13:29-0400 Mean blood pressure 88 mm[Hg] Axel Catherine [facility] 03-26-2024 13:29-0400 Systolic blood pressure 125 mm[Hg] Axel Catherine [facility] 03-26-2024 13:20-0400 Body temperature 97.52 [degF] Axel Catherine [facility] 03-26-2024 13:20-0400 Diastolic blood pressure 63 mm[Hg] Axel Catherine [facility] 03-26-2024 13:20-0400 Heart rate 54 /min Aexl Catherine [facility] 03-26-2024 13:20-0400 Mean blood pressure 77 mm[Hg] Axel Catherine [facility] 03-26-2024 13:20-0400 Respiratory rate 15 /min Axel Catherine [facility] 03-26-2024 13:20-0400 SaO2% (BldA) [Mass fraction] 97 % Axel Catherine [facility] 03-26-2024 13:20-0400 Systolic blood pressure 104 mm[Hg] Axel Hernández [facility] 03-26-2024 13:15-0400 Mean blood pressure 73 mm[Hg] Axel Catherine [facility] 03-26-2024 13:15-0400 Respiratory rate 15 /min Axel Catherine [facility] 03-26-2024 13:10-0400 Mean blood pressure 72 mm[Hg] Axel Catherine [facility] 03-26-2024 13:10-0400 Respiratory rate 11 /min Axel Catherine [facility] 03-26-2024 12:55-0400 Body temperature 97.52 [degF] Axel Catherine [facility] 03-26-2024 12:50-0400 Respiratory rate 1 /min Axel Catherine [facility] 03-26-2024 09:36-0400 Blood Pressure Location Axel Catherine [facility] 03-26-2024 09:36-0400 Mean blood pressure 112 mm[Hg] Axel Catherine [facility] 03-26-2024 09:34-0400 Mean blood pressure 97 mm[Hg] Axel Catherine [facility] 03-26-2024 09:34-0400 Body temperature 97.34 [degF] Axel Catherine [facility] 03-26-2024 09:34-0400 Blood Pressure Location Axel Catherine [facility] 03-26-2024 09:34-0400 Heart rate 50 /min Axel Catherine [facility] 03-06-2024 08:11-0400 Blood Pressure Location Axel Catherine [facility] 03-06-2024 08:11-0400 Diastolic blood pressure 74 mm[Hg] Axel Hernández [facility] 03-06-2024 08:11-0400 Heart rate 56 /min Aexl Hernández [facility] 03-06-2024 08:11-0400 Mean blood pressure 98 mm[Hg] Axel Hernández [facility] 03-06-2024 08:11-0400 Systolic blood pressure 147 mm[Hg] Axel Hernández [facility] 03-06-2024 08:11-0400 Heart rate 57 /min Axel Hernández [facility] 03-06-2024 08:11-0400 SaO2% (BldA) [Mass fraction] 98 % Axel Hernández [facility] 03-06-2024 08:10-0400 Blood Pressure Location Axel Hernández [facility] 03-06-2024 08:10-0400 Body temperature 98.06 [degF] Axel Hernández [facility] 03-06-2024 08:10-0400 Diastolic blood pressure 73 mm[Hg] Axel Hernández [facility] 03-06-2024 08:10-0400 Mean blood pressure 92 mm[Hg] Axel Hernández [facility] 03-06-2024 08:10-0400 Systolic blood pressure 129 mm[Hg] Axel Hernández [facility] 03-06-2024 08:10-0400 Respiratory rate 18 /min Axel Hernández [facility] 11-18-2023 11:00-0500 Body height 180.34 cm Jada Rene [facility] Other 11-18-2023 11:00-0500 Body mass index (BMI) [Ratio] 25.38 kg/m2 Jada Rene [facility] Other 11-18-2023 11:00-0500 Body temperature 97.6 [degF] Jadaendy Rene Other [facility] Other 11-18-2023 11:00-0500 Body weight 82.56 kg Jadaendy Rene Other [facility] Other 11-18-2023 11:00-0500 Diastolic blood pressure 80 mm[Hg] Jada Rene Other [facility] Other 11-18-2023 11:00-0500 Respiratory rate 18 /min Jadaendy Rene Other [facility] Other 11-18-2023 11:00-0500 SaO2% (BldA) [Mass fraction] 99 % Jada Rene Other [facility] Other 11-18-2023 11:00-0500 Systolic blood pressure 132 mm[Hg] Jada Rene Other [facility] Other 11-02-2023 13:00-0500 Body height 180.34 cm Jadaendy Rene Other [facility] Other 11-02-2023 13:00-0500 Body mass index (BMI) [Ratio] 24.4 kg/m2 Jada Edgard Other [facility] Other 11-02-2023 13:00-0500 Body weight 79.38 kg Jada Edgard Other [facility] Other 11-02-2023 13:00-0500 Diastolic blood pressure 82 mm[Hg] Jada Rene Other [facility] Other 11-02-2023 13:00-0500 Respiratory rate 18 /min Jada Rene Other [facility] Other 11-02-2023 13:00-0500 SaO2% (BldA) [Mass fraction] 97 % Jada Rene Other [facility] Other 11-02-2023 13:00-0500 Systolic blood pressure 138 mm[Hg] Jada Rene Other [facility] Other 09-21-2023 10:00-0500 Body height 180.34 cm Jada Rene Other [facility] Other 09-21-2023 10:00-0500 Body mass index (BMI) [Ratio] 25.81 kg/m2 Jada Rene Other [facility] Other 09-21-2023 10:00-0500 Body weight 83.96 kg Jada Rene Other [facility] Other 09-21-2023 10:00-0500 Diastolic blood pressure 70 mm[Hg] Jada Rene Other [facility] Other 09-21-2023 10:00-0500 Respiratory rate 18 /min Jada Rene Other [facility] Other 09-21-2023 10:00-0500 SaO2% (BldA) [Mass fraction] 98 % Jada Rene Other [facility] Other 09-21-2023 10:00-0500 Systolic blood pressure 140 mm[Hg] Jada Rene Other [facility] Other 06-16-2023 11:00-0400 Body height 180.34 cm Jadaendy Rene Other [facility] Other 06-16-2023 11:00-0400 Body mass index (BMI) [Ratio] 23.79 kg/m2 Jada Rene Other [facility] Other 06-16-2023 11:00-0400 Body weight 77.38 kg Jadaendy Rene Other [facility] Other 06-16-2023 11:00-0400 Diastolic blood pressure 64 mm[Hg] Jada Rene Other [facility] Other 06-16-2023 11:00-0400 Respiratory rate 18 /min Jadaendy Rene Other [facility] Other 06-16-2023 11:00-0400 SaO2% (BldA) [Mass fraction] 98 % Jadamary Rene Other [facility] Other 06-16-2023 11:00-0400 Systolic blood pressure 118 mm[Hg] Jada Rene Other [facility] Other Encounters Encounter Date Encounter Type Care Provider Facility Start: 05-02-2025 ambulatory Kylah Garcia Facility :[facility] Start: 11-01-2024 ambulatory Kylah Garcia Facility :[facility] Start: 08-28-2024 ambulatory Davie Vargas Facilit y:BERNADETTE [facility]coA[facility] Start: 08-07-2024 End: 08-07-2024 ambulatory Kylah Garcia Facility:[facility] Latasha edgar Start: 07-31-2024 End: 07-31-2024 ambulatory Kylah Garcia Facility:[facility] Cyclone edgar Start: 07-24-2024 End: 07-24-2024 ambulatory Kylah Garcia Facility:[facility] Latasha edgar Start: 07-23-2024 ambulatory Kylah Garcia Facility :[facility] Start: 07-05-2024 ambulatory Kashif Barnett Facility :[facility] Start: 07-03-2024 End: 07-03-2024 ambulatory Kylah Garcia Facility:[facility] Latasha hernández Start: 06-20-2024 End: 06-20-2024 ambulatory AXEL HERNÁNDEZ Not Available Start: 06-11-2024 End: 06-11-2024 ambulatory XXXX NONE Facility:[facility] Start: 06-11-2024 End: 06-11-2024 Patient encounter procedure Kashif Barnett [facility] Start: 05-30-2024 End: 05-30-2024 ambulatory Dixon Dubose Facility:[facility] Start: 05-30-2024 End: 05-30-2024 Patient encounter procedure Dixon Dubose [facility] Start: 05-21-2024 End: 05-21-2024 ambulatory Kashif Barnett Facility:[facility] Start: 05-21-2024 End: 05-21-2024 Patient encounter procedure Kashif Barnett [facility] Start: 05-03-2024 End: 05-03-2024 ambulatory MD Kylah Garcia Facility:[facility] Latasha edgar Start: 05-01-2024 End: 05-01-2024 ambulatory MD Kashif Barnett Facility:[facility] Start: 05-01-2024 End: 05-01-2024 Patient encounter procedure Kashif Barnett [facility] Start: 05-01-2024 End: 05-01-2024 Lab Drop off Kylah Garcia [facility] Start: 05-01-2024 End: 05-01-2024 ambulatory MD Kylah Garcia Facility:[facility] Latasha springe Start: 04-20-2024 End: 04-20-2024 ambulatory MD Kashif Barnett Facility:[facility] Start: 04-20-2024 End: 04-20-2024 Patient encounter procedure Kashif Barnett [facility] Start: 04-04-2024 End: 04-04-2024 ambulatory AXEL HERNÁNDEZ Not Available Start: 03-26-2024 End: 03-26-2024 Admission to same day surgery center Axel Hernández [facility] Start: 03-26-2024 End: 03-26-2024 ambulatory Axel Hernández Facility:[facility] Start: 03-20-2024 End: 03-20-2024 ambulatory MD Kylah Garcia Facility: [facility] Latasha hernández Start: 03-08-2024 End: 03-08-2024 ambulatory MD Kylah Garcia Facility: [facility] Latasha hernández Start: 03-06-2024 End: 03-06-2024 ambulatory Axel Hernández Facility:[facility] Start: 03-06-2024 End: 03-06-2024 Patient encounter procedure Axel Hernández [facility] Start: 02-15-2024 End: 02-15-2024 ambulatory AXEL HERNÁNDEZ Not Available Start: 02-15-2024 End: 02-15-2024 ambulatory AXEL HERNÁNDEZ Not Available Start: 02-02-2024 End: 02-02-2024 ambulatory MD Kylah Garcia Facility:[facility] Latasha hernández Start: 12-06-2023 End: 12-06-2023 ambulatory Jadaendy Rene [facility] Other Start: 12-06-2023 Telephone encounter Ajdaendy Rene [facility] Start: 12-02-2023 End: 12-02-2023 ambulatory Jada Rene Other [facility] Other Start: 12-02-2023 Telephone encounter Jadaendy Rene [facility] Start: 12-01-2023 End: 12-01-2023 Lab Drop off Kylah Garcia [facility] Start: 12-01-2023 End: 12-01-2023 ambulatory MD Kylah Garcia Facility:[facility] Start: 12-01-2023 ambulatory MD Kylah Garcia Facility :[facility] Jackie Start: 11-18-2023 End: 11-18-2023 ambulatory Jadaendy Rene Other [facility] Other Start: 11-18-2023 Office outpatient vi sit 25 minutes Jadamary Rene [facility] Start: 11-02-2023 End: 11-02-2023 ambulatory Jada Rene [facility] Other Start: 11-02-2023 Office outpatient vi sit 25 minutes Jada Rene [facility] Start: 11-02-2023 Telephone encounter Jadaendy Rene [facility] Start: 10-28-2023 End: 10-28-2023 ambulatory Jadaendy Rene Other [facility] Other Start: 10-28-2023 Telephone encounter Jadaendy Rene [facility] Start: 09-30-2023 End: 09-30-2023 Nurse Triage Venessa Riggins RN NURSE ENTRY LEVEL ACCOUNT REPRESENTATIVE Comment on above: Refill Request Start: 09-30-2023 Telephone encounter Jada Rene [facility] Start: 09-21-2023 End: 09-21-2023 ambulatory Jadaendy Rene Other [facility] Other Start: 09-21-2023 Office outpatient vi sit 25 minutes Jada Rene [facility] Start: 08-29-2023 End: 08-29-2023 ambulatory Jadaendy Rene Other [facility] Other Start: 08-29-2023 Telephone encounter Jada Rene [facility] Start: 08-26-2023 End: 08-26-2023 ambulatory Jadaendy Rene Other [facility] Other Start: 08-26-2023 Telephone encounter Jada Rene [facility] Start: 08-08-2023 End: 08-08-2023 ambulatory Jadaendy Rene Other [facility] Other Start: 08-08-2023 Telephone encounter Jada Rene [facility] Start: 07-27-2023 End: 07-27-2023 ambulatory Jadaendy Rene Other [facility] Other Start: 07-27-2023 Telephone encounter Jada Rene [facility] Start: 06-16-2023 End: 06-16-2023 ambulatory Jadaendy Rene [facility] Other Start: 06-16-2023 Office outpatient ne w 45 minutes Jada Rene [facility] Start: 06-16-2023 Telephone encounter Jada Rene [facility] Procedures Date Procedure Procedure Detail Performing Clinician [...] Covid-19 Vaccine (#1) Covid-19 Vacci ne (#1) [facility] Immunizations Immunization Date Immunization Notes Care Provider Sandrita escobar 09-21-2023 Prevnar 20 Jada Rene Other [facility] 08-19-2023 Flu Shot - Documentation Purposes Only Jada Rene Other [facility] Other 08-19-2023 influenza virus vaccine, unspecified formulation Kylah Garcia [facility] 08-14-2022 influenza, seasonal, injectable Jadaendy Rene Other [facility] Other 03-31-2015 pneumococcal conjuga te vaccine, 13 valent Jadaendy Rene Other [facility] 08-02-2014 influenza, high dose seasonal, preservative-free Venessa Riggins RN [facility] 08-02-2014 influenza virus vaccine, unspecified formulation Venessa Riggins RN [facility] 08-29-2013 zoster vaccine, live Venessa [...] Date Payer Category Payer Unknown [id number] 2023 Medicare [id number] 2023 Self-pay 2023 Medicare [employer] [facility] [id number] 2023-Present [phone] [address] [place] [address] O [id number] [id number] 1940 Unknown [id number] 2.16.840.1.993287.3.579.2.125 9 1940 Unknown [id number] 2.16.840.1.654634.3.579.2.125 9 1940 Unknown [id number] 2.16.840.1.962395.3.579.2.125 9 1940 Unknown [id number] 2.16.840.1.465394.3.579.2.125 9 1940 Unknown [id number] 2.16.840.1.903480.3.579.2.125 9 1940 Unknown [id number] 2.16.840.1.868231.3.579.2.727 1940 Unknown [id number] 2.16.840.1.944107.3.579.2.72 1940 Unknown [id number] 2.16.840.1.217988.3.579.2.72 1942 Unknown [id number] 2.16.840.1.643082.3.579.2.72 1942 Unknown [id number] 2.16.840.1.635808.3.579.2.72 1942 Unknown [id number] 2.16.840.1.920368.3.579.2.72 1942 Unknown [id number] 2.16.840.1.406436.3.579.2.72 1942 Unknown [id number] 2.16.840.1.532784.3.579.2.72 1942 Unknown [id number] 2.16.840.1.606899.3.579.2.72 1942 Unknown [id number] 2.16.840.1.150576.3.579.2.72 1942 Unknown [id number] 2.16.840.1.895202.3.579.2.72 1942 Unknown [id number] 2.16.840.1.261567.3.579.2.72 1942 Unknown [id number] 2.16.840.1.125413.3.579.2. 1942 Unknown [id number] 2.16.840.1.250832.3.579.2. 1942 Unknown [id number] 2.16.840.1.061183.3.579.2. 1942 Unknown [id number] 2.16.840.1.214474.3.579.2. 1942 Unknown [id number] 2.16.840.1.209485.3.579.2. 1942 Unknown [id number] 2.16.840.1.277686.3.579.2 1942 Unknown [id number] 2.16.840.1.966640.3.579.2 1942 Unknown [id number] 2.16.840.1.252617.3.579.2. 1942 Unknown [id number] 2.16.840.1.833712.3.579.2 1942 Unknown [id number] 2.16.840.1.814671.3.579.2. 1942 Unknown [id number] 2.16.840.1.688047.3.579.2. 1940 Unknown [id number] 2.16.840.1.134035.3.579.2.727 Medicare [id number] 2.16.840.1.690356.19 Unknown [id number] 2.16840.1.460970.3.579.2.531 Unknown [id number] 2.16.840.1.717857.3.579.2.531 Social History Date Type Detail Facility Sex Assigned At [facility] Start: 12-01-2023 End: 06-11-2024 Tobacco smoking status NHIS Never smoked tobacco [facility] Start: 06-28-2022 Alcohol intake Current drinke r of alcohol (finding) [facility] Start: 06-28-2022 Alcohol intake [facility] Start: 1940 Sex Assigned At Not on file [facility] status [facility] Medical Equipment Procedure Code Equipment Code Equipment Origin al Text Equipment Identifier Dates Test blood sugar(s) 2 times daily. Dx: non. Insulin: No dx 250.00 Start: 08-24-2013 Comment on above: Test blood sugar(s) 2 times daily. Dx: non. Insulin: No dx 250.00 Functional Status Date Assessment Result Facility 06-11-2024 Functional Status N/A [facility] 05-30-2024 Functional Status No [facility] 04-20-2024 Functional Status N/A [facility] 03-06-2024 Functional Status No [facility] Clinical Notes 03-10-2010 to 05-01-2024 Note Date & Type Note Facility 05-01-2024 Note Echocardiology Procedure Exam Date/Time Accession # Ordering Echo Transthoracic 05/01/2024 15:00 EDT [id number] Kashif Barnett MD Complete CPT code 60127 [id number] Reason for Exam (Echo Transthoracic Complete) AFIB, Syncope R55;Other (please specify) Report Version: 1 Study ID: [id number] [facility] [address] [place] [address] Adult Echocardiogram Report Name: DARIEL AGUILERA Study Date: 05/01/2024, 2: 02 PM Patient Location: [facility] : 1940 (MM/DD/YYYY) Gender: Male Age: 84 Years Height: 177.8 cm BP: 143 / 76 mmHg Weight: 82.555 kg HR: 79 bpm BSA: 2.01 m? Ordering Physician: Kashif Barnett Referring Physician: Kashif Barnett Performed By: Elsa Cruz RDCS Reason For Study: AFIB, Syncope History: Syncope, [...] Signed by: Jason Vaughn MD Transcribed by: [facility] Technologist: [facility] 03-26-2024 Hospital Discharg e instructions Patient [...] condition: Doing activities that require a strong workers compensation attorney. Having rheumatoid arthritis, gout, or diabetes. Being [...] splint on your hand. General instructions Take muvs-njp-fkzmkwl and prescription medicines only as told by [...] provider. Document Revised: 03/17/2020 Document Reviewed: 03/17/2020 [employer] Patient Education 2022 [employer]. Follow Up Care 03/01/2024 15:40:29 With:GORDO Weller Address: [address] [place] [address] Business (1) When:04/04/2024 10:15:00 Comments:Keep scheduled appointment [facility] 03-20-2024 Note [id number] [facility] 11-18-2023 Evaluation note Encounter Date Diagnosis [...] sodium level at upcoming appt in January [facility] Other 12-20-2023 Evaluation note* Encounter Date Diagnosis [...] further dizziness symptoms would recommend f/u with software sales executive as well. [facility] Other 11-17-2023 Evaluation note* Encounter Date Diagnosis Assessment Notes Treatment Notes Treatment Clinical Notes Sep, Type 2 diabetes mellitus (ICD-10 - E11.9) [facility] Other 11-17-2023 Miscellaneous Notes* Telephone Encounter - Venessa Riggins RN - 09/30/2023 12:29 PM EST Called patient back and reviewed plan from his call with Nurse Surety Bond Agent at 11:36 AM. See my note Patient [...] have any questions, you can call Nurse plant technician/control room operator back. * Telephone Encounter - Venessa Riggins RN - 09/30/2023 11:36 AM EST Patient calling with request for physician referral: Patient referred to nephrology and primary care Department. Patient denies any new or worsening symptoms of which a provider is not aware: Yes. Patient was discharged from [facility] on 08/26 for low sodium [...] have any questions, you can call Nurse plant technician/control room operator back. [facility]* Encounter Date Diagnosis Assessment Notes Treatment Notes Treatment Clinical Notes Sep, Hyponatremia (ICD-10 - E87.1) Recent sodium 136 at low end of normal, given significance of symptoms and recommendation of hospital for f/u will refer to nephrology patient requesting [place] Sep, Anticoagulant long-term use (ICD-10 - Z79.01) Follows with INR clinic through [facility]. Sep, Atrial fibrillation (ICD-10 - I48.91) Appears in NSR today, anticoagulated on Warfarin Sep, Hypothyroidism (ICD-10 - E03.9) Recent TFTs in normal range, clinically euthyroid, continue current dose of LT4 Sep, Type 2 diabetes mellitus (ICD-10 - E11.9) Recent a1c in good range at 5.6%, continue current dose of glimepiride. Sep, Immunization due (ICD-10 - Z23) [facility] Other 10-16-2023 Evaluation note* Encounter Date Diagnosis Assessment Notes Treatment Notes Treatment Clinical Notes Aug, Hyponatremia (ICD-10 - E87.1) [facility] Other 08-03-2023 Evaluation note* Encounter Date Diagnosis Assessment Notes Treatment Notes Treatment Clinical Notes Jun, Atrial fibrillation (ICD-10 - I48.91) Rate controlled, mild bradycardia but asymptomatic. Will continue current dose of atenolol. He is anticoagulated on Coumadin with goal INR 2-3, he is due for INR check. Will refer to coumadin clinic through [facility] Jun, Anticoagulant long-term use (ICD-10 - Z79.01) Jun, Hearing loss (ICD-10 - H91.90) Referral to local child and family counselor Jun, Dermatitis (ICD-10 - L30.9) Can trial topical steroid PRN, discussed may be secondary to dry skin. Recommend daily use of lotion Jun, Hypothyroidism (ICD-10 - E03.9) Due for TFTs prior to next visit Jun, Type 2 diabetes mellitus (ICD-10 - E11.9) Due for a1c prior to next visit Jun, BPH (benign prostatic hyperplasia) (ICD-10 - N40.0) [facility] Other 08-03-2023 Reason for referral (narrative)* Reason Medication managemen t through [facility] - Coumadin management with INR goal 2-3 Diagnosis 1 Anticoagulant long-t erm use (Z79.01) Referral Organization [facility] Family Rodo John Referring Provider First Name Jada Referring Provider Last Name Edgard Referring Provider Specialty [facility] Referred Organization [facility] Referred Address [address] [place], [place],[address] Referred Provider Specialty Milvia s Referral Priority Routine General Notes Gabrielle Reid 01/2023 01:34:29 PM >this is an order not a referral, clinical informed and will fax order over for standing order INR to [facility] Reason * FU 06/29 CALL he aring loss, issue with hearing aids Diagnosis 1 Hearing loss (H91.90 ) Referral Organization [facility] Family Rodo John Referring Provider First Name Jada Referring Provider Last Name Edgard Referring Provider Specialty [facility] Referred Organization [facility] Referred Address ,[place],[address] Referred Provider Specialty Audiologists Referral Priority Routine General Notes WalterGabrielle beltran Krishan 01/2023 01:28:34 PM >referral received and faxed [facility] Other 04-27-2010 History of Past illness Narrative* Problem Noted Date Diagnosed Date Resolved Date Myalgia 03/10/2010 03/01/2011 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 and other lower urinary tract symptoms (LUTS) 08/11/2006 01/11/2013 Elevated prostate specific antigen (PSA) 03/07/2012 documented as of this encounter (statuses as of 09/30/2023) [facility] No data available for this section [facility] Future Appointments Appointment Date:03/08/2024 01:00:00 PM Scheduled Provider:Kylah Garcia MD Location:[facility] [place] Appointment Type: Open Appointment Date:03/26/2024 01:45:00 PM Scheduled Provider: Location:[facility] Appointment Type:Surgery FT Appointment Date:05/01/2024 09:00:00 AM Scheduled [facility]: Lab Draw Appointment Date:05/03/2024 08:00:00 AM Scheduled Provider: Location:[facility] [place] Appointment Type: Medicare Wellness Subsequent Appointment Date:05/03/2024 09:00:00 AM Scheduled Provider:Kylah Garcia MD Location:[facility] [place] Appointment Type: Open Future Scheduled Tests Laboratory* PSA Screen, Total 02/02/24 * CBC w/ Auto Diff 02/02/24 * Comprehensive Metabolic Panel 02/02/24 * Lipid Panel 02/02/24 [facility] Future Appointments Appointment Date:05/01/2024 09:00:00 AM Scheduled Provider: [facility] Type: Lab Draw Appointment Date:05/03/2024 08:00:00 AM Scheduled Provider: [facility] Type: Medicare Wellness Subsequent Appointment Date:05/03/2024 09:00:00 AM Scheduled Provider:Kylah Garcia MD Location:[facility] [place] Appointment Type: Open Future Scheduled Tests Laboratory* PSA Screen, Total 02/02/24 * CBC w/ Auto Diff 02/02/24 * Comprehensive Metabolic Panel 02/02/24 * Lipid Panel 02/02/24 [facility] Future Appointments Appointment Date:05/01/2024 09:00:00 AM Scheduled Provider: Location:[facility] [place] Appointment Type: Lab Draw Appointment Date:05/03/2024 08:00:00 AM Scheduled Provider: Location:[facility] [place] Appointment Type: Medicare Wellness Subsequent Appointment Date:05/03/2024 09:00:00 AM Scheduled Provider:Kylah Garcia MD Location:[facility] [place] Appointment Type: Open Appointment Date:05/25/2024 01:00:00 PM Scheduled Provider:Kashif Barnett MD [facility] Type:Cardiology Follow Up (FT) Future Scheduled Tests Laboratory* PSA Screen, Total 02/02/24 * CBC w/ Auto Diff 02/02/24 * Comprehensive Metabolic Panel 02/02/24 * Lipid Panel 02/02/24 Radiology* Echo Transthoracic Complete 04/20/24 [facility] Future Appointments Appointment Date:05/03/2024 08:00:00 AM Scheduled Provider: Location:[facility] [place] Appointment Type: Medicare Wellness Subsequent Appointment Date:05/03/2024 09:00:00 AM Scheduled Provider:Kylah Garcia MD Location:[facility] [place] Appointment Type: Open Appointment Date:05/21/2024 10:00:00 AM Scheduled Provider: [facility] Type:CV Holter/Event (FT) Appointment Date:05/25/2024 01:00:00 PM Scheduled Provider:Kashif Barnett MD [facility] App[facility] Type:Cardiology Follow Up (FT) [facility] Future Appointments Appointment Date:05/30/2024 03:45:00 PM Scheduled Provider:Kashif Barnett MD [facility] Type:Cardiology Follow Up (FT) Appointment Date:11/01/2024 09:15:00 AM Scheduled Provider:Kylah Garcia MD Location:[facility] [place] Appointment Type:FM Open Appointment Date:05/02/2025 08:00:00 AM Scheduled Provider: Location:[facility] [place] Appointment Type: Medicare Wellness Subsequent [facility] Future Appointments Appointment Date:08/31/2024 01:00:00 PM Scheduled Provider:Kashif Barnett MD [facility] Appointment Type:Cardiology Follow Up (FT) Appointment Date:11/01/2024 09:15:00 AM Scheduled Provider:Kylah Garcia MD Location:[facility] [place] Appointment Type: Open Appointment Date:05/02/2025 08:00:00 AM Scheduled Provider: Location:[facility] [place] Appointment Type:FM [facility]ness [facility] Future Appointments Appointment Date:11/01/2024 09:15:00 AM Scheduled Provider:Kylah Garcia MD Location:[facility] [place] Appointment Type: Open Appointment Date:12/11/2024 01:00:00 PM Scheduled Provider:Dixon Dubose PA-C [facility] Type:Cardiology Follow Up (FT) Appointment Date:05/02/2025 08:00:00 AM Scheduled Provider: Location:[facility] [place] Appointment Type:FM Medicare Wellness [facility] Evaluation noteNo InformationNort Code [employer] Other Hisjnnq general Narrative - Reported* Type Description Date Medical History type 2 diabetes Medical History hypothyroid Medical History Afib Surgical History multiple neck sx Surgical History tonsillectomy Surgical History adenoidectomy Surgical History MAU cataract Hospitalization History see above [facility] Other Hisqgpk general Narrative - Reported* Type Description Date Medical History type 2 diabetes Medical History hypothyroid Medical History Afib Surgical History multiple neck sx Surgical History tonsillectomy Surgical History adenoidectomy Surgical History MAU cataract Hospitalization History see above Hospitalization History low [facility] [facility] Other History general Narrative - Reported* Type [...] 2 DM, generalized weakness hypomagnesiema, RADHA 11/13/23-11/15/[address] [facility] Other Hospital Discharge instructions No data available for this section [facility] No data available for this section [facility] Summary Purpose Family History No Family History [...] hospitalization for symptomatic hyponatremia, [facility] [place] [address] [place] ph [phone], fax [phone] Diagnosis 1 Hyponatremia (E87.1) Referral Organization [facility] Family Rodo John Referring Provider First Name Jada Referring Provider Last Name Edgard Referring Provider Specialty [facility] Referred [facility] Referred Provider Romeo [place] Referred Address [address] [place] [id number] Referred Provider Specialty Internal Med icine Referral Priority Routine General Notes Gabrielle Reid 06/2023 01:35:25 PM > referral received and faxed Clinical Notes [facility] [place] [address] [facility] ph [phone], fax [phone] Reason hyponatremia, recent hospitalization [facility] for hyponatremia Diagnosis 1 Hyponatremia (E87.1) Referral Organization [facility] Family Rodo John Referring Provider First Name Jada Referring Provider Last Name Edgard Referring Provider Specialty [facility] Referred Organization [facility] Referred Address [address] [place], [place],[address] Referred Provider Specialty Nephrology Referral Priority Routine Additional Source Comments (unrecognized sect ion and content) No Status Records FoundNo Status Records FoundNo Status Records FoundNo Status Records FoundNo Status Records FoundNo Status Records FoundNo Status Records FoundNo Status Records FoundNo Status Records Found INFORMATION SOURCE (unrecogn ized section and content) DATE CREATED AUTHOR 06/03/2020 [facility] DATE CREATED AUTHOR AUTHOR'S ORGANIZ ATION 11/10/2023 [facility] DATE CREATED AUTHOR AUTHOR'S ORGANIZ ATION [facility]/03/20[facility] DATE CREATED AUTHOR AUTHOR'S ORGANIZ ATION 06/22/2024 [facility] DATE CREATED AUTHOR AUTHOR'S ORGANIZ ATION 07/01/2024 [facility] DATE CREATED AUTHOR AUTHOR'S ORGANIZ ATION 08/16/2024 [facility] REASON FOR VISIT (unrecogniz ed section [...] Garcia MD Address: Address: [address] [place], [place] [address] Personnel Name: Kylah Garcia MD Address: Address: [address] Personnel Name: Kylah Garcia MD Address: Address: [facility] [place] [address] Personnel Name: Kylah Garcia MD Address: Address: [facility] [place] [address] Personnel Name: Kylah Garcia MD Address: Address: [address] [place] [address] Personnel Name: Kylah Garcia MD Address: Address: [facility] [place] [address] Personnel Name: Kylah Garcia MD Address: Address: [address] [place] [address] Personnel Name: Kylah Garcia MD Address: Address: [facility] [place] [address] Personnel Name: Kylah Garcia MD Address: Address: [address] [place] [address] FOR RECORDS PERTAINING TO PATIENTS WHO ARE [...] BE BASED ON THE PRIMARY CLINICAL RECORDS. [facility]. provides no warranty or guarantee of the accuracy or completeness of information in this document.
--- NOTE | 2024-08-16 10:54 | P.CN_ITS ---
Consult Note: HPI Data of Consult Patient: new to practice Consult date: 08/13/24 Requesting Physician: Bernadine Draper NP Primary Care Provider: KYLAH GARCIA Consult Narrative Reason for consult: low back, right thoracic pain Narrative: 84yom who presents for evaluation. longstanding low back pain history. recently was in ER for this and underwent lumbar XR, which is significant for severe facet arthropathy in lumbar spine. a few days ago, patient had fall at home and hit the right side of midback against fireplace. has had significant pain since. has tried MDP, tizanidine, flexeril. mdp helped, but no significant improvement with tizanidine and cyclobenzaprine. has engaged in a series of provider directed home exercises >6 weeks, without lasting benefit. recently underwent rib xray, thoracic xray and lumbar xray, with acute right 11th rib fracture. cc:: CC: Bernadine Draper NP Review of Systems ROS Status of ROS 10 or more systems reviewed and unremark able except as noted in history and below Musculoskeletal Reports: back pain PFSH PFSH Medical History (Updated 08/16/24 @ 10:57 by Bernadine Draper NP) Hyponatremia ?E87.1 - Hypo-osmolality and hyponatremia (ICD-10) Hypomagnesemia ?E83.42 - Hypomagnesemia (ICD-10) RADHA (acute kidney injury) ?N17.9 - Acute kidney failure, unspecified (ICD-10) Paroxysmal atrial fibrillation ?I48.0 - Paroxysmal atrial fibrillation (ICD-10) Type 2 diabetes mellitus with hyperglycemia ?E11.65 - Type 2 diabetes mellitus with hyperglycemia (ICD-10) Influenza ?J11.1 - Influenza due to unidentified influenza virus with other respiratory manifestations (ICD-10) Hypomagnesemia ?E83.42 - Hypomagnesemia (ICD-10) Acute hyponatremia ?E87.1 - Hypo-osmolality and hyponatremia (ICD-10) Acute confusion ?R41.0 - Disorientation, unspecified (ICD-10) Diabetes ?E11.9 - Type 2 diabetes mellitus without complications (ICD-10) High cholesterol ?E78.00 - Pure hypercholesterolemia, unspecified (ICD-10) Atrial fibrillation ?I48.91 - Unspecified atrial fibrillation (ICD-10) Family History Father Family history of myocardial infarction Family history of hypertension Mother Family history of cancer Family history of diabetes mellitus Social History Within the past year, how often did you have a drink containing alcohol: 2-4 times a month Smoking status: Never smoker Highest level of school completed/degree received: high school graduate Gender Identity: male Meds Home Medications and Allergies Home Medications ?Medication ?Instructions ?Recorded ?Confirmed ?Type glimepiride 2 mg tablet 2 mg PO DAILY 08/21/23 03/10/24 History levothyroxine 25 mcg tablet 25 mcg PO QAM 08/21/23 03/10/24 History pravastatin 40 mg tablet 40 mg PO DAILY 08/21/23 03/10/24 History sildenafil 100 mg tablet 100 mg PO DAILY PRN sexual activity 08/21/23 03/10/24 History tamsulosin 0.4 mg capsule 0.4 mg PO DAILY 08/21/23 03/10/24 History warfarin 5 mg tablet (Jantoven) 5 mg PO MOWEFR 08/21/23 03/10/24 History warfarin 2.5 mg tablet (Jantoven) 2.5 mg PO .4 days a week 08/22/23 03/10/24 History finasteride 5 mg tablet 5 mg PO .qd 11/13/23 03/10/24 History atenolol 25 mg tablet 25 mg PO BID #60 tabs 11/15/23 03/10/24 Rx sodium chloride 1,000 mg soluble 1,000 mg PO TID #90 tabs 11/15/23 03/10/24 Rx tablet TUMERIC 08/13/24 History coenzyme Q10 100 mg capsule (Co 100 mg PO DAILY 08/13/24 08/13/24 History Q-10) cyclobenzaprine 10 mg tablet 10 mg PO TID PRN muscle spasm 08/13/24 08/13/24 History gabapentin 300 mg capsule mg 08/13/24 History vitamin B complex (B-Complex 1 tab PO DAILY 08/13/24 08/13/24 History tablet) Allergies Allergy/AdvReac Type Severity Reaction Status Date / Time No Known Drug Allergies Allergy Verified 08/21/23 15:00 Exam Narrative Exam Narrative: Psych-alert and oriented x 3. Attentive and appropriate, constitutionally normal, displays normal mood and affect per situation.? There are no obvious deficits in memory, reasoning, or intellect.? Skin-no obvious rashes, bruising, erythema noted to the patient's area of pain. Extremities- extremities are warm with minimal edema and palpable pulses. thoracic-significant pain and dysthesia over right T11 and T12 pattern Lumbar-no significant tenderness to palpation noted in the lumbar spine and paraspinal musculature.? Pain is elicited with extension, and lateral rotation of the lumbar spine. Range of motion is slightly diminished with these motions due to pain. Facet loading maneuvers are positive bilaterally and do appear to be concordant with the patient's normal complaints of pain.? Coordination remains intact.? Gait remains non-antalgic. Results Additional Findings Additional findings: BONES: Thoracic spine: Mild left convex curvature. Mild superior endplate irregularity of T9. Slight anterior wedging of T11 and T12 vertebral bodies. Lumbar spine: Slight right convex curvature lumbar spine. Skin surface marker localizing area of pain is posterior to T12. Mild anterior wedging of T12 without increased irregular density; unchanged. Grade 1 anterior listhesis of L4 on 5. Moderate degenerative facet arthropathy L3-4 through L5-S1. Bone encroachment on the neural foramen at L3-4 through L5-S1. DISC SPACES: No significant disc height narrowing, subluxation, or endplate abnormality. PARASPINOUS: Incidentally noted is anterior mechanical fusion at 2 separate cervical spine levels. Assessment and Plan Assessment and Plan (1) Intercostal neuralgia: (2) Lumbar spondylosis: (3) Thoracic back pain: Qualifiers: Chronicity: acute Back pain laterality: right Qualified Code(s): M54.6 - Pain in thoracic spine (4) Low back pain: Qualifiers: Back pain laterality: bilateral Chronicity: chronic Sciatica presence: unspecified whether sciatica present Qualified Code(s): M54.50 - Low back pain, unspecified; G89.29 - Other chronic pain Plan 84yom who presents for evaluation. failed conservative measures, as noted. imaging reviewed, as noted. discontinue flexeril due to ineffectiveness. cannot take NSAIDs, on blood thinners. patient rating pain 10/10 sore kicking pain, no benefit with tylenol. start hydrocodone-acetaminophen 5-325mg BID PRN moderate to severe pain, risks vs benefits reviewed, 7 day trial. pt to call for refills. UDS today. Proceed with right T11 and T12 intercostal nerve block x2 working towards RFA. f/u after procedure
== END 2024-08-16 10:20 | disposition home or self-care (01) ==
LOC: PM 10:21
PROVIDERS: PCP Family Medicine; Visit Provider Nurse Practitioner
DX: M54.6 Pain in thoracic spine (principal); M54.50 Low back pain, unspecified; G89.29 Other chronic pain; M47.816 Spondylosis without myelopathy or radiculopathy, lumbar region; M79.2 Neuralgia and neuritis, unspecified
CPT/HCPCS: G0463

== ENCOUNTER 2024-09-06 07:04 | Outpatient (OUT) | payer OTHER, SELFPAY ==
--- OUTSIDE RECORDS SUMMARY | 2024-09-06 07:07 | XMS_ITS | CCD ---
Author Organization [facility] Care Team Providers Care Fiscal Services Director Name Role Phone Jada Rene Unavailable Unavailable Primary Care Provider UnavailCathleen Hernandesria Endy Attending Unavailable Edgard Jada Endy Admitting Unavailable Edgard Jada Endy Primary Care Unavailable Edgard Jada Endy Attending Unavailable Edgard Jada Endy Admitting Unavailable Cathleen Reneria Endy Primary Care Unavailable Kylah Garcia Primary [...] Kashif Barnett Referring Unavailable Jason Vaughn. Consulting Unavaila Jason Chase Consulting Unavaila Jason Chase Consulting Unavaila MD Kylah Choudhury Admitting Unavailable MD Kylah Garcia Attending Unavailable [...] Attending Unavailable MD Kylah Garcia Attending Unavailable Nathaniel Bonilla MD Attending Unavailable Kylah Garcia MD Primary Care Provider MD Kylah Garcia Referring Unavailable Davie Vargas Attending Unavailable MD Kylah Garcia Attending Unavailable MD Kylah Garcia Attending Unavailable MD Kylah Garcia Attending Unavailable MD Kylah Garcia Attending Unavailable MD Kylah Garcia Attending Unavailable MD Kylah Garcia Attending Unavailable MD Kylah Garcia Attending Unavailable Davie Vargas Attending Unavailable NONE, XXXX Referring Unavailable MD Kashif Barnett Attending MD Kashif Hendricks Admitting Unavailable MD Kashif Barnett Referring Unavailable MD Kashif Barnett Attending Unavailable MD Kashif Barnett Admitting MD Kylah Soler Admitting Unavailable MD Kylah Garcia Attending Unavailable Allergies Allergy Classification Reported Allergen(s) Allergy Type Date of Onset Reaction(s) Facility (2 sources) No Known Medication Allergies; Translations: [No Known Medication Allergies] Propensity to adverse reactions (disorder) [facility] Repository Medications Current Medications Medication Drug Class(es) Dates Sig (Normalized) Sig (Original) acetaminophen 325 mg / HYDROcodone bitartrate 5 mg oral tablet (2 sources) Opioid Agonist Start: 03-20-2024 take 1 tablet by mouth every four hours as needed for pain [place] 325 mg-5 mg oral tablet See Instructions, for pain, 10 tab(s), Refill(s) 0, 1 tab(s) Oral q4hr PRN Pain. Duration 7 days., [facility]/pharmacy #[id number], 180.5, cm, 03/20/24 15:05:00 EDT, Height/Length Dosing, 82.5, kg, 03/20/24 15:05:00 EDT, Weight Dosing Start Date: 03/20/24 Status: Ordered HYDROcodone-acet aminophen ([place]) 5-325 MG tablet Active atenolol 25 mg oral tablet (20 sources) beta-Adrenergic Dimitris Start: 04-20-2024 atenol ol 25 mg Tab See Instructions, take 1/2 tab daily, # 30 tab(s), Refills(s) 5, Pharmacy: [facility]/pharmacy #[id number], 180, cm, 04/20/24 13:27:00 EDT, Height/Length Dosing, 82.2, kg, 04/20/24 13:27:00 EDT, Weight Dosing Start Date: 04/20/24 Status: Ordered Start: 02-22-2024 take 1 tablet by alyssa th once daily atenolol 25 mg Tab 25 mg = 1 tab(s), Oral, Daily, # 90 tab(s), Refills(s) 0, Pharmacy: [facility], 178.2, cm, 02/02/24 10:29:00 EDT, Height/Length Dosing, 84.1, kg, 02/02/24 10:29:00 EDT, Weight Dosing Start Date: 02/22/24 Status: Ordered Start: 10-06-2015 take 1 tablet by alyssa th once daily atenolol 25 mg Tab 25 mg = 1 tab(s), Oral, Daily, Refills(s) 0 Start Date: 12/01/23 Status: Ordered take 1 tablet by alyssa th every twelve hours Atenolol 25 MG 1 tablet Orally twice a day for 90 days Active Comment on above: TAKE 1 TABLET ONE TI ME DAILY benzonatate 200 mg oral capsule (1 source) Non-narcotic Antitussive take 1 capsule by mouth three times daily benzonatate (Tessalon) 200 MG capsule Take 1 capsule 3 times a day by oral route. Active cephalexin 500 mg oral capsule (1 source) Cephalosporin Antibacterial cephalexin (Keflex) 500 MG capsule Active cholecalciferol 0.125 mg oral capsule (14 sources) Vitamin D take 1 capsule by mouth every twenty-four hours CoQ10 (9 sources) Start: 03-06-20 CoQ10 Refills(s) 0 Start Date: 03/06/24 Status: Ordered D3 (4 sources) Start: 05-03-20 D3 See Instructions, Oral Daily- patient states he takes 500 once a day, Refills(s) 0 Start Date: 05/03/24 Status: Ordered diclofenac sodium 0.01 mg/mg topical gel (1 source) Nonsteroidal Anti-inflammatory Drug diclofenac sodium (Voltaren) 1 % gel APPLY 1/2 inchTO THE AFFECTED AREA(S) BY TOPICAL ROUTE BID Active finasteride 5 mg oral tablet (20 sources) 5-alpha Reductase Inhibitor Start: 04-30-20 take 1 tablet by mouth once daily finasteride 5 mg Tab 5 mg = 1 tab(s), Oral, Daily, # 90 tab(s), Refills(s) 1, Pharmacy: [facility], 180, cm, 04/20/24 13:27:00 EDT, Height/Length Dosing, 82.2, kg, 04/20/24 13:27:00 EDT, Weight Dosing Start Date: 04/30/24 Status: Ordered Start: 10-09-2014 take 1 tablet by alyssa once daily finasteride 5 mg Tab 5 mg = 1 tab(s), Oral, Daily, # 90 tab(s), Refills(s) 0, Pharmacy: [facility], 178.2, cm, 12/01/23 13:40:00 EST, Height/Length Dosing, 85.5, kg, 12/01/23 13:40:00 EST, Weight Dosing Start Date: 01/18/24 Status: Ordered Comment on above: Take 1 tablet by [facility] once daily. fluticasone propionate 0.05 mg/actuat metered dose nasal spray (2 sources) Corticosteroid Start: 07-03-2024 take 1 spray(s) nasal route twice daily Flonase 0.05 mg/inh [place] 1 spray(s), Nasal, BID, 16 gram, Refill(s) 0, each nostril, [facility]/pharmacy #[id number], 178, cm, 07/03/24 10:05:00 EDT, Height/Length Dosing, 80.8, kg, 07/03/24 10:05:00 EDT, Weight Dosing Start Date: 07/03/24 Status: Ordered take 1 spray(s) nasa l route once daily at bedtime fluticasone (Flonase) 50 MCG/ACT nasal spray USE 1 SPRAY(S) IN EACH NOSTRIL ONCE DAILY AT BEDTIME Active gabapentin 300 mg oral capsule (20 sources) Anti-epileptic Agent Start: 07-03-2024 take 1 capsule by mouth once daily gabapentin 300 mg Cap 300 mg = 1 cap(s), Oral, Daily, # 90 cap(s), Refills(s) 1, Pharmacy: [facility], 178, cm, 07/03/24 10:05:00 EDT, Height/Length Dosing, 80.8, kg, 07/03/24 10:05:00 EDT, Weight Dosing Start Date: 07/03/24 Status: Ordered Start: 12-01-2023 take 1 capsule by mo [facility] once daily gabapentin 300 mg Cap 300 mg = 1 cap(s), Oral, Daily, # 90 cap(s), Refills(s) 0, Pharmacy: [facility], 178.2, cm, 02/02/24 10:29:00 EDT, Height/Length Dosing, 84.1, kg, 02/02/24 10:29:00 EDT, Weight Dosing Start Date: 02/22/24 Status: Ordered glimepiride 2 mg oral tablet (20 sources) Sulfonylurea Start: 08-20-2024 glimepiride 2 mg Tab See Instructions, TAKE 1 TABLET DAILY, # 3 tab(s), Refills(s) 0, Pharmacy: [facility], 178, cm, 08/07/24 10:59:00 EDT, Height/Length Dosing, 78.2, kg, 08/07/24 10:59:00 EDT, Weight Dosing Start Date: 08/20/24 Status: Ordered Start: 10-14-2014 take 1 tablet by alyssa once daily glimepiride 2 mg Tab 2 mg = 1 tab(s), Oral, Daily, # 90 tab(s), Refills(s) 1, Pharmacy: [facility], 178.2, cm, 02/02/24 10:29:00 EDT, Height/Length Dosing, 84.1, kg, 02/02/24 10:29:00 EDT, Weight Dosing Start Date: 02/13/24 Status: Ordered Comment on above: Take 1 tablet by alyssa once daily. hydroCHLOROthiazide 25 mg oral tablet (1 source) Thiazide Diuretic take 1 tablet by mouth once daily hydroCHLOROthiazide (HYDRODiuril) 25 MG tablet Take 1 tablet by mouth Daily Active levothyroxine sodium 0.025 mg oral tablet (20 sources) l-Thyroxine Start: 024 Synthroid 25 mcg(0.025 mg) Tab See Instructions, TAKE 1 TABLET DAILY ON AN EMPTY STOMACH, # 3 tab(s), Refills(s) 0, Pharmacy: [facility]/pharmacy #[id number], 178, cm, 08/07/24 10:59:00 EDT, Height/Length Dosing, 78.2, kg, 08/07/24 10:59:00 EDT, Weight Dosing Start Date: 08/20/24 Status: Ordered Start: 02-13-2024 take 1 tablet by alyssa th once daily levothyroxine 25 mcg (0.025 mg) Tab 25 mcg = 1 tab(s), Oral, Daily, on an empty stomach, # 90 tab(s), Refills(s) 1, [facility] 178.2, cm, 02/02/24 10:29:00 EDT, Height/Length Dosing, 84.1, kg, 02/02/24 10:29:00 EDT, Weight Dosing Start Date: 02/13/24 Status: Ordered Start: 02-13-2024 Synthroid 25 M CG tablet 02/13/2024 Active Start: 12-01-2023 take 1 tablet by alyssa th once daily levothyroxine 25 mcg (0.025 mg) [...] day Active meloxicam 15 mg oral tablet (13 sources) Nonsteroidal Anti-inflammatory Drug Start: 12-01-2023 take 1 tablet by mouth once daily as needed meloxicam 15 mg Tab 15 mg = 1 tab(s), Oral, Daily, as needed, Refills(s) 0 Start Date: 12/01/23 Status: Ordered omeprazole 40 mg delayed release oral capsule (20 sources) Proton Pump Inhibitor Start: 08-07-2024 take 1 capsule by mouth once daily omeprazole 40 mg Cap-DR 40 mg = 1 cap(s), Oral, Daily, Refills(s) 0 Start Date: 08/07/24 Status: Ordered Start: 12-01-2023 take 1 capsule by mo ut once daily omeprazole 40 mg Cap-DR 40 mg = 1 cap(s), Oral, Daily, # 90 cap(s), Refills(s) 0, Pharmacy: [facility], 178.2, cm, 02/02/24 10:29:00 EDT, Height/Length Dosing, 84.1, kg, 02/02/24 10:29:00 EDT, Weight Dosing Start Date: 03/05/24 Status: Ordered pravastatin sodium 40 mg oral tablet (20 sources) HMG-CoA Reductase Inhibitor Start: 06-05-2024 pravastatin 40 mg Ta b See Instructions, TAKE 1 TABLET DAILY, # 90 tab(s), Refills(s) 0, Pharmacy: [facility], 178, cm, 05/30/24 13:34:00 EDT, Height/Length Dosing, 80.2, kg, 05/30/24 13:34:00 EDT, Weight Dosing Start Date: 06/05/24 Status: Ordered Start: 10-09-2014 take 1 tablet by alyssa once daily pravastatin 40 mg Tab 40 mg = 1 tab(s), Oral, Daily, # 90 tab(s), Refills(s) 0, Pharmacy: [facility], 178.2, cm, 02/02/24 10:29:00 EDT, Height/Length Dosing, 84.1, kg, 02/02/24 10:29:00 EDT, Weight Dosing Start Date: 02/22/24 Status: Ordered pravastatin (Pra vachol) 20 MG tablet Active Comment on above: Take 1 tablet by alyssa daily at bedtime. sildenafil 100 mg oral tablet (13 sources) Phosphodiesterase 5 Inhibitor Start: 07-03-20 take 1 tablet by mouth once daily as needed sildenafil 100 mg Tab 100 mg = 1 tab(s), Oral, Daily, PRN for erectile dysfunction, 1 hour before sexual activity, # 5 tab(s), Refills(s) 0, Pharmacy: [facility], 178, cm, 07/03/24 10:05:00 EDT, Height/Length Dosing, 80.8, kg, 07/03/24 10:05:00 EDT, Weight Dosing Start Date: 07/03/24 Status: Ordered Start: 02-02-2024 take 1 tablet by alyssa th once daily as needed sildenafil 100 mg Tab 100 mg = 1 tab(s), Oral, Daily, PRN for erectile dysfunction, 1 hour before sexual activity, # 5 tab(s), Refills(s) 0, Pharmacy: [facility], 178.2, cm, 02/02/24 10:29:00 EDT, Height/Length Dosing, 84.1, kg, 02/02/24 10:29:00 EDT, Weight Dosing Start Date: 02/02/24 Status: Ordered take 1 tablet by alyssa th once daily as needed sildenafil (Viagra) 50 MG tablet TAKE 1 TABLET BY MOUTH ONCE DAILY NEEDED FOR INTERCOURSE FOR 14 DAYS Active take 1 tablet by alyssa th every twenty-four hours Sildenafil Citrate 100 MG 1 tablet as needed Orally Once a day Active Sodium Chloride (13 sources) Start: 06-27-2024 take 1 tablet by mouth once daily Sodium Chloride 1 g oral tablet See Instructions, 1 gram orally daily, # 90 tab(s), Refills(s) 0, [id number], cm, 06/11/24 12:53:00 EDT, Height/Length Dosing, 82, kg, 06/11/24 12:56:00 EDT, Weight Dosing Start Date: 06/27/24 Status: Ordered Start: 05-03-2024 take 1 tablet by alyssa th once daily Sodium Chloride 1 g oral tablet See Instructions, patient states Dr. Najera took this down to one tab once daily, Refills(s) 0 Start Date: 05/03/24 Status: Ordered Start: 04-05-2024 take 1 tablet by alyssa th twice daily Sodium Chloride 1 g oral tablet See Instructions, TAKE 1 TABLET BY MOUTH TWICE DAY, # 90 tab(s), Refills(s) 2, [id number] 180.5, cm, 03/20/24 15:05:00 EDT, Height/Length Dosing, 82.5, kg, 03/20/24 15:05:00 EDT, Weight Dosing Start Date: 04/05/24 Status: Ordered Start: 12-29-2023 take 1 tablet by alyssa th in the morning sodium chloride 1 g tablet Take 1 g by mouth in the morning and 1 g before bedtime. 12/29/2023 Active Start: 12-23-2023 take 1 tablet by [facility] twice daily Sodium Chloride 1 g oral tablet See Instructions, TAKE 1 TABLET BY MOUTH TWICE DAY, # 90 tab(s), Refills(s) 2, Pharmacy: [facility], 178.2, cm, 12/01/23 13:40:00 EST, Height/Length Dosing, 85.5, kg, 12/01/23 13:40:00 EST, Weight Dosing Start Date: 12/23/23 Status: Ordered take 1 tablet by [facility] three times daily Sodium Chloride 1000 MG 1 tablet Orally Three times a day Active tamsulosin hydrochloride 0.4 mg oral capsule (20 sources) alpha-Adrenergic Dimitris Start: 06-27-2024 take 1 capsule by mouth once daily tamsulosin 0.4 mg Cap 0.4 mg = 1 cap(s), Oral, Daily, # 90 cap(s), Refills(s) 0, Pharmacy: [facility], 178, cm, 06/11/24 12:53:00 EDT, Height/Length Dosing, 82, kg, 06/11/24 12:56:00 EDT, Weight Dosing Start Date: 06/27/24 Status: Ordered Start: 10-14-[address] [facility] once daily tamsulosin 0.4 mg Cap 0.4 mg = 1 cap(s), Oral, Daily, # 90 cap(s), Refills(s) 0, Pharmacy: [facility], 178.2, cm, 02/02/24 10:29:00 EDT, Height/Length Dosing, 84.1, kg, 02/02/24 10:29:00 EDT, Weight Dosing Start Date: 02/22/24 Status: Ordered Comment on above: Take [address] [facility] daily at bedtime. tiZANidine 4 mg oral tablet (1 source) Central alpha-2 Adrenergic Agonist Start: 07-24-20 take 1 tablet by mouth every eight hours tiZANidine 4 mg Tab 4 mg = 1 tab(s), Oral, q8hr, # 90 tab(s), Refills(s) 1, Pharmacy: [facility]/pharmacy #[id number], 178, cm, 07/24/24 14:57:00 EDT, Height/Length Dosing, 78.7, kg, 07/24/24 14:57:00 EDT, Weight Dosing Start Date: 07/24/24 Status: Ordered triamcinolone acetonide 1 mg/ml topical cream (14 sources) Corticosteroid Start: 06-16-20 Start: 06-16-2023 Triamcinolone Acetonide 0.1 % 1 application Externally BID for 14 days Jun, Active Turmeric Curcumin 500 MG (14 sources) Turmeric Curcumi n 500 MG as directed Orally Active turmeric extract 500 mg oral capsule (9 sources) Start: 03-06-2024 Turmeric 500 m g oral capsule Refills(s) 0 Start Date: 03/06/24 Status: Ordered ubidecarenone 200 mg oral capsule (14 sources) vitamin B12 (10 sources) Vitamin B12 Start: 03-06-2024 Vitamin B12 Re fills(s) 0 Start Date: 03/06/24 Status: Ordered Start: 07-28-2011 take 1 tablet by alyssa th once daily cyanocobalamin 1,000 mcg ORAL Tab Take 1 tablet by mouth once daily. 0 07/28/2011 Active Comment on above: Take 1 tablet by alyssa th once daily. Vitamin D3 5000 intl units (125 mcg) oral tab (10 sources) Start: 12-01-2023 take 1 tablet by [...] tab(s), Oral, Daily, Refills(s) 0 Start Date: 08/07/24 Status: Ordered Start: 12-01-2023 take 0.5 tablet by m outh every other day, then take 1 tablet by mouth every other day warfarin 5 mg Tab See Instructions, 0.5 tab(s) orally every other day and 1 tab every other day, Refills(s) 0 Start Date: 1/18/24 Status: Ordered Warfarin 5mg 5 m g [...] daily dabigatran etexilate 150 mg oral capsule (2 sources) Start: 10-09-2014 take 1 capsule by mouth twice daily dabigatran etexilate (PRADAXA) 150 mg cap Indications: Atrial fibrillation (HCC) Take 1 capsule by mouth twice daily. 180 capsule 3 10/09/2014 Active Comment on above: Take 1 capsule by mo uth twice daily. Problems Problem Classification Problem Date Documented Date Episodic/Chronic Abdominal hernia (2 sources) Inguinal hernia; Translations: [Unilateral inguinal hernia, without obstruction or gangrene, not specified as recurrent] Onset: 08-28-2024 Episodic Allergic reactions (1 source) Dermatitis, unspecified Episodic Cardiac dysrhythmias (20 sources) Atrial fibrillation; Translations: [Unspecified atrial fibrillation] Onset: 08-22-2014 Chronic Coronary atherosclerosis and other heart disease (1 source) Coronary atherosclerosis; Translations: [Atherosclerotic heart disease of [place] coronary artery without angina pectoris] Onset: 08-28-2024 Chronic Diabetes mellitus without complication (20 sources) Type 2 diabetes mellitus; Translations: [Type 2 diabetes mellitus without complications] Chronic Disorders of lipid metabolism (10 sources) Hyperlipidemia; Translations: [Hyperlipidemia, unspecified] 03-02-2006 Chronic E Codes: Fall (8 sources) Fall in home 03-20-2024 Fluid and [...] sources) Laceration of head 03-20-2024 Episodic Osteoarthritis (11 sources) Degenerative joint disease involving multiple joints; Translations: [Polyosteoarthritis, unspecified] Onset: 09-12-2012 09-12-2012 Chronic Other aftercare (14 sources) Long-term current use of anticoagulant; Translations: [FCI (current) use of anticoagulants] Episodic Other aftercare (3 sources) FCI (current) use of anticoagulants Episodic Other and unspecified benign neoplasm (8 sources) Melanocytic nevus of skin 03-08-2024 Episodic Other connective tissue disease (9 sources) Triggering of digit 02-02-2024 Episodic Other connective tissue disease (1 source) Acquired trigger finger of right little finger; Translations: [Trigger finger, right little finger] Onset: 03-20-2024 Episodic Other ear and sense organ disorders (18 sources) Hearing loss; Translations: [Unspecified hearing loss, unspecified ear] 05-03-2024 Chronic Other ear and sense organ disorders (1 source) Unspecified hearing loss, unspecified ear Chronic Other male genital disorders (5 sources) Impotence 02-02-2024 Chronic Other male genital disorders (4 sources) Erectile dysfunction co-occurrent and due to arterial insufficiency 05-03-2024 Chronic Other nervous system disorders (10 sources) Carpal tunnel syndrome; Translations: [Carpal tunnel syndrome, unspecified upper limb] Onset: 08-23-2007 03-06-2008 Chronic Other nervous system disorders (1 source) Neuropathy; Translations: [Polyneuropathy, unspecified] Onset: 03-25-2010 03-25-2010 Chronic Other nutritional; endocrine; and metabolic disorders (8 sources) Overweight in adulthood with body mass index of 25 or more but less than 30 03-08-2024 Episodic Other screening for suspected conditions (not mental disorders or infectious disease) (1 source) Encounter for screening for malignant neoplasm of prostate Episodic Otitis media and related conditions (1 source) Serous otitis media 07-03-2024 Episodic Peripheral and visceral atherosclerosis (10 sources) Arteriosclerotic vascular disease 12-01-2023 Chronic Spondylosis; intervertebral disc disorders; other back problems (1 source) Intervertebral disc disorder of cervical region with myelopathy; Translations: [Cervical disc disorder with myelopathy, unspecified cervical region] Onset: 2011 11-09-2021 Chronic Spondylosis; intervertebral disc disorders; other back problems (1 source) Spasm of back muscles 07-24-2024 Episodic Syncope (12 sources) Syncope and collapse; Translations: [Syncope] Onset: 04-20-2024 Episodic Thyroid disorders (17 sources) Hypothyroidism; Translations: [Hypothyroidism, unspecified] Chronic Unclassified (1 source) Encounter for screening for malignant neoplasm of prostate; Translations: [Encounter for screening for malignant neoplasm of prostate] Onset: 11-02-2023 Unclassified (1 source) FCI (current) use of anticoagulants; Translations: [FCI (current) use of anticoagulants] Onset: 06-16-2023 Results Test Name Value Interpretation Reference Range [facility] General Surgery Office/Clini c Noteon 08-28-2024 General Surgery Office/Clinic Note General Surgery Office/Clinic Note Chief Complaint ref- hernia 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 Garcia referring History of Present Illness 84-year-old male referred to us for evaluation of right sided inguinal hernia patient is hernias been present for several years was referred to us for further evaluation. Patient states that he does not currently have any pain in the hernia and is able to reduce the hernia on his own. Denies signs and symptoms of incarceration or strangulation. Currently takes Coumadin for longstanding atrial fibrillation does have an implanted defibrillator in place. CT scan revealed possibility of bilateral inguinal hernias which contain fat Review of Systems PHQ Score Initial Depression Screen Score: 0 SCORE Physical Exam Vitals & Measurements HR: 65(Peripheral) RR: 16 BP: 119/75 HT: 70 in HT: 178 cm WT: 82.2 kg WT: 180.84 lb BMI: 25.94 Small right inguinal hernia, no inguinal hernias detected in the left inguinal canal Assessment/Plan 84-year-old male with a symptomatic right inguinal hernia 1. Right inguinal hernia (K40.90: Unilateral inguinal hernia, without obstruction or gangrene, not specified as recurrent) Patient was offered robotic assisted laparoscopic right inguinal hernia repair patient declines at this time in favor of watchful waiting risk benefits and alternatives were discussed with the patient. Signs symptoms of incarceration and strangulation were discussed with the patient and he was instructed that should he develop any of the symptoms he is to contact us immediately. Ordered: E&M of New Patient Low 30-44 Min 30040 2. ASCVD (arteriosclerotic cardiovascular disease) (I25.10: Atherosclerotic heart disease of [place] coronary artery without angina pectoris) The patient require surgery he will require cardiac clearance Ordered: E&M of New Patient Low 30-44 Min 49335 3. Longstanding persistent atrial fibrillation (I48.11: Longstanding persistent atrial fibrillation) Should patient require or opt for a robotic repair he will need to hold his anticoagulation for 5 days prior to the procedure Ordered: E&M of New Patient Low 30-44 Min 31305 Follow-up No qualifying data available Problem List/Past Medical History Ongoing ASCVD (arteriosclerotic cardiovascular disease) Back spasm Carpal tunnel syndrome, left DM type 2 causing vascular disease Encounter for surveillance of abnormal nevi Erectile dysfunction due to arterial insufficiency Fall at home Hard of hearing Hyperlipidemia Hypothyroid Longstanding persistent atrial fibrillation Osteoarthritis Right inguinal hernia Serous otitis media Syncope Trigger finger Historical Body mass index (BMI) of 25.0-25.9 in adult Procedure/Surgical History Carpal tunnel release (03/26/2024), Carpal tunnel release, Surgery. Medications atenolol 25 mg Tab, See Instructions, 5 refills CoQ10 D3, See Instructions finasteride 5 mg Tab, 5 mg= 1 tab(s), Oral, Daily, 1 refills Flonase 0.05 mg/inh [place], 1 spray(s), Nasal, BID gabapentin 300 mg Cap, 300 mg= 1 cap(s), Oral, Daily, 1 refills glimepiride 2 mg Tab, See Instructions Jantoven 5 mg oral tablet, 5 mg= 1 tab(s), Oral, Daily omeprazole 40 mg Cap-DR, 40 mg= 1 cap(s), Oral, Daily pravastatin 40 mg Tab, See Instructions sildenafil 100 mg Tab, 100 mg= 1 tab(s), Oral, Daily, PRN Sodium Chloride 1 g oral tablet, See Instructions Synthroid 25 mcg(0.025 mg) Tab, See Instructions tamsulosin 0.4 mg Cap, 0.4 [...] lifetime) Tobacco Use:. Never Smokeless Tobacco Use:., 08/28/2024 Family History Diabetes mellitus type 2: Mother. Immunizations Vaccine Date Status Comments influenza virus vaccine, inactivated - Not Given Patient Refuses pneumococcal 20-valent conjugate vaccine 09/21/2023 Recorded influenza virus vaccine, inactivated 08/19/2023 Recorded pneumococcal 13-valent vaccine 03/31/2015 Recorded influenza virus vaccine, inactivated 08/02/2014 Recorded Normal [facility] Comment on above: Result Comment: Elec tronically Signed By: Sam COHN, Davie Cole\.br\Date and Time Signed: 08/28/24 15:02 EDT Ambulatory Visit Summaryon 0 08-07-2024 Ambulatory Visit Summary Ambulatory Visit Summary CLIFFORDDARIEL Solitario :1940 Visit Date:08/07/2024 Ambulatory Visit Instructions Your Care Team Attending Physician - Kylah Garcia MD Primary Care Physician - Kylah Garcia MD This Is Your Medications List Turmeric (Turmeric 500 mg oral capsule) atenolol (atenolol 25 mg Tab) cholecalciferol (D3) cholecalciferol (Vitamin D3 5000 intl units (125 mcg) oral tab) cyanocobalamin (Vitamin B12) finasteride (finasteride 5 mg Tab) fluticasone nasal (Flonase 0.05 mg/inh [place]) gabapentin (gabapentin 300 mg Cap) glimepiride (glimepiride [...] EST With: Adam COHN, Kylah Cole Where: [address] [address]- Tuesday 1:00 PM EST With: Dixon Dubose PA-C [facility] 2024 8:00 AM EDT With: Where: [address] [id number]- Medications What How Much When Why Instructions [...] Unchanged fluticasone nasal (Flonase 0.05 mg/ inh [place]) 1 Sprays Nasal Inhalation 2 times a [...] choosing us for your care. [facility] Family Medicine Office/Clini c Noteon 08-07-2024 Family Medicine Office/Clinic Note Family Medicine Office/Clinic Note HPI Staff Dariel is an 84 year old male presenting for one week follow up back pain IAM medrol dosepak and tramadol Steroids are done Pain characteristics: Pain location: low back Intensity:8/10 Onset: ongoing Medication used: steroids and tramadol, tizanidine questions/concerns: needs his glimeperide refilled and [facility]othyroxine to [facility] Out of steroids, can he do more? tramadol is almost out can he get more they seem to help. if you renew these use local pharamcy C/O about the groin area ? hernia still has that lump area Called [facility] and advised him his appt is 08/13/24 with [place] [facility] at 12:30pm History of Present [...] day(s), # 21 tab(s), Refills(s) 0, Pharmacy: [facility]/pharmacy #[id number], 178, cm, 07/31/24 14:02:00 EDT, Height/Length [...] Oral, Daily, 1 refills Flonase 0.05 mg/inh [place], 1 spray(s), Nasal, BID gabapentin 300 mg [...] 1 r (more content not included)... Normal [facility] Comment on above: Result Comment: Elec tronically Signed By: Adam COHN, Kylah Cole\.br\Date and Time Signed: 08/07/24 11:41 EDT Family Medicine Office/Clini c Noteon 07-31-2024 Family Medicine Office/Clinic Note Family Medicine Office/Clinic Note HPI Staff Dairel is an 84 year old male presenting [...] day(s), # 21 tab(s), Refills(s) 0, Pharmacy: [facility]/pharmacy #[id number], 178, cm, 07/31/24 14:02:00 EDT, Height/Length Dosing, 78.5, kg, 07/31/24 14:02:00 EDT, Weight Dosing tramadol, 50 mg = 1 tab(s), Oral, q4hr, PRN for pain, X 7 day(s), # 21 tab(s), Refills(s) 0, [id number] 178, cm, 07/31/24 14:02:00 EDT, Height/Length [...] Oral, Daily, 1 refills Flonase 0.05 mg/inh [place], 1 spray(s), Nasal, BID gabapentin 300 mg [...] virus vaccine, inactivated 08/02/2014 Recorded [facility] Comment on above: Result Comment: Elec [...] mg Tab) fluticasone nasal (Flonase 0.05 mg/inh [place]) gabapentin (gabapentin 300 mg Cap) glimepiride (glimepiride [...] PM EDT With: Kylah Garcia MD Where: [address] [id number]- 2023 9:15 AM EST With: Kylah Garcia MD Where: [address] [address]- Tuesday 1:00 PM EST With: Dixon Dubose PA-C Where: [facility] 2024 8:00 AM EDT With: Where: [address] [address]- Medications What How Much When [...] Unchanged fluticasone nasal (Flonase 0.05 mg/ inh [place]) 1 Sprays Nasal Inhalation 2 times a [...] choosing us for your care. [facility] Family Medicine Office/Clini c Noteon 07-24-2024 Family Medicine Office/Clinic Note Family Medicine Office/Clinic Note HPI Staff Dariel is an 84 year old male presenting for ER follow up ER followup: Hospital: [place] Visit date: 07/14/24 Symptoms the patient presented [...] patient was under the dosed. Patient stated [place] was helping him more. Patient denies any [...] - Will do Tizanadine - Will do [place] for pain - Follow up in 1 week. - Will send to pain Ordered: [facility] External Ambulatory Referral 2. Inguinal hernia of left side without obstruction or gangrene (K40.90: Unilateral inguinal hernia, without obstruction or gangrene, not specified as recurrent) - Pt cancelled his surgery. - NO pain at this time. - Encouraged follow up Ordered: [facility] External Ambulatory Referral 3. Nonsmoker (Z78.9: Other specified health status) - Please continue to not smoke Ordered: Body Mass Index (BMI) documented 3008F Current tobacco non-user 1036F Depression Screening Negative 3352F [facility] External Ambulatory Referral Most recent diastolic blood [...] q8hr, # 90 tab(s), Refills(s) 1, Pharmacy: [facility]/pharmacy #[id number], 178, cm, 07/24/24 14:57:00 EDT, Height/Length [...] Oral, Daily, 1 refills Flonase 0.05 mg/inh [place], 1 spray(s), Nasal, BID gabapentin 300 mg Cap, 300 mg= 1 cap(s), Oral, Daily, 1 refills glimepiride 2 mg Tab, 2 mg= 1 tab(s), Oral, Daily, 1 refills Jantoven 5 mg oral tablet, 5 mg= 1 tab(s), Oral, Daily levothyroxine 25 mcg (0.025 mg) Tab, 25 mcg= 1 tab(s), Oral, Daily, 1 refills [place] 325 mg-5 mg oral tablet, 1 tab(s), [...] No. Househol (more content not included)... Normal [facility] Comment on above: Result Comment: Elec tronically Signed By: Adam COHN, Kylah Cole\.br\Date and Time Signed: 07/24/24 15:24 EDT Ambulatory [...] EST With: Adam COHN, Kylah Cole Where: [address] [address]- Tuesday 1:00 PM EST With: Dixon Dubose PA-C Where: [facility] 2024 8:00 AM EDT With: Where: [address] [address]- Medications What How Much When Instructions Unchanged [...] choosing us for your care. [facility] Family Medicine Office/Clini c Noteon 07-03-2024 [...] BID, 16 gram, Refill(s) 0, each nostril, [facility]/pharmacy #[id number], 178, cm, 07/03/24 10:05:00 EDT, Height/Length Dosing, 80.8, kg, 07/03/24 10:05:00 EDT, Weight Dosing gabapentin, 300 mg = 1 cap(s), Oral, Daily, # 90 cap(s), Refills(s) 1, Pharmacy: [facility], 178, cm, 07/03/24 10:05:00 EDT, Height/Length Dosing, 80.8, kg, 07/03/24 10:05:00 EDT, Weight Dosing omeprazole, 40 mg = 1 cap(s), Oral, Daily, # 90 cap(s), Refills(s) 0, Pharmacy: [facility], 178.2, cm, 02/02/24 10:29:00 EDT, Height/Length Dosing, 84.1, kg, 02/02/24 10:29:00 EDT, Weight Dosing sildenafil, 100 mg = 1 tab(s), Oral, Daily, PRN for erectile dysfunction, 1 hour before sexual activity, # 5 tab(s), Refills(s) 0, Pharmacy: [facility], 178, cm, 07/03/24 10:05:00 EDT, Height/Length Dosing, 80.8, kg, 07/03/24 10:05:00 EDT,... 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 Normal [facility] Comment on above: Result Comment: Elec tronically Signed By: Adam COHN, Kylah Lopez.br\Date and Time Signed: 07/03/24 10:27 EDT Heart and Vascular Office/Cl alberto Noteon 06-11-2024 Heart and Vascular Office/Clinic Note [...] virus vaccine, inactivated 08/02/2014 Recorded [facility] Comment on above: Result Comment: Elec tronically Signed By: Ericka COHN, Kashif Craig\.br\Date and Time Signed: 06/11/24 13:14 EDT Heart [...] November and January and was hospitalized in [place] for 2 of those. He states that [...] with voice recognition artificial intelligence software, specifically [employer], [employer] and or [employer]. Substitutions may have occurred due to the inherent limitations of voice recognition and artificial intelligence software. Total time spent pr (more content not included)... Normal [facility] Comment on above: Result Comment: [...] BY: Kashif Barnett MD ca Dictated: 05/27/2024 [id number] Transcribed: 05/28/2024 [facility] Comment on above: Result Comment: Elec tronically Signed By: Ericka COHN, Kashif Perez.br\Date and Time Signed: 05/29/24 13:13 EDT Coding Summary.on 05-09-2024 Coding Summary. GYHMDejz48PVb4iTz+P GhlYWQ+SH0ERVNeF32t jYWwhY7vB7ZPQCdJCcc gQVBQTElOSyIgbmFtZT 1kaXNjZXJu IC8+LV9rHIFiAxynbEK au8J1wDH4B08rct8kNT sshGX4KWTaJhJxlalcc 0nyqTq1GUzbYhukLkBo ERVtzW60SZC6oE71Au4 7zMMghDNip9rbyIb5Oi PuLEBkKBZ4sEtxXPyyn 1QiNCYsD39sxWXdn7G8 IGNvbGxhcHNlOyBlbXB 9qK7zEIbekfqnu3zeco hxQuk6wx17tOFzh5B4t EV5I1NutaC3KAGptUSs QltmpMLAyF2ubylql2n kteqyGmZyCOZqJCi5VM l7EVLdzTvnXbEhYW81W DJ3WCPjjwYrB1BaFDGi cYsqZaP7o9X4Ha5TO0V XKaubV3ZYRHNEVLahqL Q+UA26hb07G3JxJxnlO qh3HMGhFNX9xJG3wH3p XILsFOgkq1K8sTV1P7A cmvDcbs6to7fyGUKgGG idW33sdSRlo8Z2VOHqx JB4PYBwnNpzCbYkmP02 Oyc+VDIsyDeuf2HzMkt hw6hod4qscSk7ZbhfST VgalJcbBsoCLC2l4IsY q1xUWJpfNB0lOL1bQ0h TjBrEtV1WAkrO174MoC beYBgWwioT02cH9IpgZ A+KYQrDvl3DSMzjEgiC O7pW1OsSRBvcycszNHc tFkcZO7jXCLaxiiwURG vdW2dRPWwL6y7PiEgTf K0QVwaW1WhFOHfehwhL x55lI9bMgSlTfZ1IVwv Y6UdikF1EYApdMSvTXu jWSP3L06ec2F7QHOdAO QyGTJ8tXA4mT5sbKcof jogbGVmdDsgdmVydGlj VXxzTBwhY068ORVzsQt nPkNvZGluZyBEYXRlOi AgMDYvMjYvMjAyNDwvd GQ+RCJaPAI8mTloMAUz lBIgMXhpEe2tlJaskKa cGV4qGOFktawtECVaiR 5dIMOiuJQkvSinOT1aX SYlzrorh298MuZpPPA0 FHNyhYUqQ3RlnR4rLcY jVABdUOVqX1VimASpKY dgT285XOxqXbI6THAli zTqW1NjZWHaaWnlTjX9 o7Y6Dl3Qx7JvxwweM2C ttDVgRcAqVhzfPLf0F7 RkPjwvdHI+UZ77ZGRfJ P30HUp5ETS1rVmqSRdb QBFtS7HooG5tVpIfYLP kZGRkOyc+PHRhYmxlIH dpZHRoPScxMDAlJyBzd RcmPF4eOw0aIHGzAAXh rKonqURbPsFix8dcZCY cZUlpQN1ddSssD6DahX T3LYUhd5b6Pt55L55bA 3JvdXA+NEHikGW1eXV6 vD1aOoSoOcM7ASgjU35 0OnXyqGYtYwxzx1eks9 qwaJj0RsG9ZHDkeqPmf VsrFEB2b8WgSv85Q98v IHdpZHRoPSIxNSUiIHZ wiJtayg7dsO7yKk5+PG LbuBS8fHC4iQ6wSaPcV cJ4HGeuX462LyUdwMMs Ahqca4dke8qubEl1YsL xPUKlhoKbkFacIAB2u4 TqRz66C1IjdEtow9XhQ lt0ag14vSQlb5X1zYY8 N4VkXOIkykcdhVBsfVe kGU5hVEImcagqUBKkhL 4mCSVwR2j1DjSlDlT2W OgwM3EngmE1YKCwkVYk ZMIbdACUuE4fcwnok2k jfnmmSlDlIDLkVLz0SO i7POSfrPtwQhWkGYC3R bS6YYB5bEXqjN3dmVkw nzwbsC4pZsi+SGW6fRI byBVQSA6kUnuguBN+PH AuPBP7sHthMIioSKUfl F3pGIBlJ8a2ShGwAhY4 COfqJ8TxhiP0NWPkbFB zPTFzdWMRtA5bwjngu9 dpqncxAlFvTSSdRDu5F Ci8CZYxgVvlNaMbTQS8 DeX9HMN9oJQmfE4ukFk ifmmyhR6dQzs+QmlydG nmFBT3HPh8O8JdSol9B FFzkWluDF6ziUXfWKww Nd9weWhkzVzcET8xJXG sljuzx819AfNcg2ecYA OifLMtBXriHBH7A69ab 7X7IBXpYDIxCRW4tIW2 nL2klHfpzylmmXYtwYv gdmVydGljYWwtYWxpZ2 72FMTkoPbuMuZaGZk7B 7CsRjd8BVEusCsvBB7o wJBnIWpjFq3nfTpgxWi uQB7lKCDkbmscz353Pv Mfb7sgFCUroQYcLQktJ TC4V30pb0D2AIOgHIUr LAM2ySE1nR9ghYasrmt gbGVmdDsgdmVydGljYW phRJceY540IRRhfWtvS tYtfEj4I8JsMcp4QVZa eMamZC8dgFMoNMcpEm2 qjZncjMwsWB9wPAZdty pzr473DrGma8spEGJtn EMuOIkoWNC7G42ei5D2 MNWsJFKhHOS4eRO0vT3 hbGlnbjogbGVmdDsgdm MgoJggNKbzBKntH294M HRvcDsnPlBhdGllbnQg SSzhCWw7D7GtFynieHP +CV61OWCjGM79gLNhvW Meb4okyIn2NvFqDCRkC LJ2cEjuHSrvy7ZdTPWq E03azRMez5D6PKZgvEq sgFQsWePmyFT1rS2rBM pqmwupx5hwsyxjXjofw 2upet17zU64C43uLNew ZHRoPSIzMCUiIHZhbGl ccp9wcN8zTk3+PGNvbC T9rJH5fA2iFTNqBzJ6U UfaF441KmVzvGLuUebw y7ndb5iviMz2UrN7UWG pueYedIoxTHE0b8RxXo 32L34wNTmiBNRwLLVmO PLhWLRdrOelrv2gaN8z Ii8+EMXwwZR1kQL9lM9 rJbIxYuJ1MSowM120El JpoQWbJidbC63bX8Fdh XA+LOOuSws8XDQluTnd CD6nqNIlGQvaDs9tJYZ 9OmNdMrMxKTlhE1EjTL IctdhbxzcqoDZ4YKAmB EAwtG18Fo5lsRcaXZHh jLSBxN3ohhpgd8xzden sHvXvEWGmVSg1IPm8JY NgyDidPoZiLPW8WqJ1Y IP5pMTtvZ5osCxovjuo wL9bQ4ZzFBYfgkpsKh9 3pF2fYuAlAuY7AKrbDi c+UnMIRvwrFy6WDKJBQ B14ET56kPSrt4F2hNY8 C6FpEQBssigrcvmyeWF 2SFKzXKWwwV44rGAuKZ icZb9dr2W8s492VQHxI TRzwB30Xv6nyGylHZUc rGPAnD6ivwevi9aerss vBsGcYSZvXCi6LHp0CW ZtwKnrZpBlYDN1YzF2L NY1sAUzxM4kjUzdsftx fE6qLnc+MDYvMDkvMTk 0MjwvdGQ+RONrMZU8lJ ctDRbmHQFafO4oPIZhT 1k1PeKwUhZ2MLbgX3Bp GPOzopjpOv37bJ0gUaP pPcY8FEhvO5KlwhD1DQ SzyUOkWOqmOHZ4A22vv 9R4OWVhOLEeVBT1qWL7 bL3zlXoklhdykQDzsHm gdmVydGljYWwtYWxpZ2 46IHRvcDsnPjgyIFllY HWqKO29PB47mSDvz0D6 pHN2G4NyAGKommblctl kcUO0UHWoWDInnQ51nU YnOQujFx0eg7G3n572B TZnUHPgyX16We3jjChe FWWazBXGiE0wmmeas1c uktjiJoJzPBYjSIn7NP b8ZGDbiEgrZhHfRQR5H eS7SDE6gWSppA0pcKun avqcgM9xAgt+TWFsZTw vdGQ+VYEjOOP3oCfrDD cjSGXdxB3iOEHxV6j5M dTpDzR9YJemP1FdZIAt vuuyMv05bR0mKxJzIlG 7ZUyfN7SflmW2CMLtoN PnCVevTPO9J50nz4E5R AJaRSQnEHB1qIS9tZ5g bGlnbjogbGVmdDsgdmV hyKqiJFfgYGodI733QN QmmAgnBa29cGCzsGwld lB3N0VtGtvloLW+PC90 AZTaXU54lWOmoBIgm3o mgVc0ZbCuKWPtLUV5qA utDZfaw9BwLNVmG79em KBoi8N7BYDwxBefgFRw CpPbfZR5sD0xPCkaaut ev1amkmqzTiudl5elgv 38qR85K43sPLfrNVLmB OMfENKhCPCktRddoz9d pP5nNd4+TTYmtXO1uLX 6uM4cMhGqQpG6BRhuQ9 94XoIfzQVmBsmhx8rlh 1flmUp0ItPgGMYuhlCa qAqyBWM6s4FqGz44F33 sIHdpZHRoPSIyMCUiIH NhbXheyi9vgZ9zCv7+P Q8rz9fjcb16eF92iKS+ OXUdXGM1mWeqTGxjEHF orD2dAEjkJsC6AXDoFi XqpU55oYKqFArwBh0bd XhzvMnfMQ4nAIGkowyd z481KwXuy5vcILQazWI pAAvzXDP3H20jo6L8HW XaRJGsVDZ1oXT5tF1eh GlnbjogbGVmdDsgdmVy xBlmSKugPNqjE728KJS naIugNtMbcQAeG5dyuc MNGE7oUrljdVZ+PHRkI TN5pMqhJKbqMQDdsX0l IDLyT5u1TxUbHeT7YMz fF5HpvqS1HKNxmYFrFX TbkSNXnH9vdpzaf8oyg vznVwChEKYuDHw7UYk9 HSIkuRluFmKvFNN1YuC 0WBM6zTPmnA6slZlcqo zlyW7qSbh+RklOOjwvd GQ+YATrZSB3vRajMCbb GMItmD7eWWWpE6v9PzE rMkG4QCmdB1SfbqA9CJ OroMDmSPTatDZIpY6dj mtxo2ltmglbFnKxGSAh JFt7CXs9JMQrlUwjSxP fFLY9CyN8LLY2pVAfdG 4mlYugypsgcZ6dBht+T VJOOjwvdGQ+PHRkIHN0 bRhcHBhtNIRwfX0hNLD bQ0o3AuKoOzJ5CUupI2 JbaeZ3LGZvtFUnVLRxi KRYxU5gvthkz1wjjbby CmPnJXCbJZw1XOt4CQL jgDvoWcTfVSR7FtY5MM A7kWUlwE6mpItsvvkqi G9wOyc+SBB8GRH1TS11 UU54W0RjWhdkoHNwlPS +PHRhYmxlIHdpZHRoPS duKYSqMlXkoBncSH4zF k0mETYpJZSapMyjrNWv WeJtd4wnUSYvP (more content not included)... Normal [facility] Coding Summary.on 05-08-2024 Coding Summary. NLPKIlex24BRl1lJb+P GhlYWQ+TK0FRVFsT79k oGYsaY9oF8EHMDdFGot gQVBQTElOSyIgbmFtZT 1kaXNjZXJu IC8+BO8sCJYvNetexNJ ee3W1kEA5J34cmt5rFF yyePA5YABiSjLrieomv 9lcqMi1JKdsVwvfDaSx MPMbaX26AFG7yS93Mc0 7mONlcSUnd7bjzIt1Mm ZfKMNvZBD3fAgjUYqhn 2QzVEXsB41tjEEjt6H4 IGNvbGxhcHNlOyBlbXB 0kY8tCFuihbcfh0ajan ppSru7sg06zCZdz3Z8h BR2T8VphtJ3CJGceVGg LrrdzYNYmM0tbjjoj4x wtcftPbZxAMKsKTm1EG i6GYYyjNekYjUlUY33M IT3YESmpxPvI5AeBOYk iOikDmY8p0P5Td5KO4N UHfalT7BAPEYRFGidvR Q+GT74vn92V9QlHjnaP vd4UUHtCGL1eJN6hE4f VKQcTQbyq0K4pII4K8H acsEspu1so3uaONYmDY dsR45wlVHvn3V2IPKuy FA3CABswVgnSfOgaF98 Oyc+BVGdxIgjj2WzSbc nn7ubm1evtRc3WlkmXY FsfeCxqBimRTK2t4EnG j8yBSWucOA6pMD8yD0r ByGtKeC7CGhvY238AmK jcGIpUkcfG13mD3OqkC A+TZJqKqa0KNDseNkgQ E5hW9DrJDXfgyxhmWFh vMlyAK8yVLZbirtdOHA vjT3pRLHbD8u5IgAsJr T6NHnuY0MtPBDefkkfK z12nO3jViBsVqM4OOnb D6UhfnF2JSGhxIFgNIh hTUR2L23iv5R6PEMoVS MqIEQ0uFC3rT9csHmkc jogbGVmdDsgdmVydGlj YNlnWObnQ870UPGrjHy nPkNvZGluZyBEYXRlOi AgMDYvMjUvMjAyNDwvd GQ+JWSmCPN0gXleNEOl rTMlUWptHw6dpFwysIj wKT8bMSUqnjstHVFbpO 1xLARqqPNysCfzKI4iJ TRnfosfv946IfVyMIZ0 LHNvfLBdM1AeqD0mOeG lODSaLUNyY2KewODxRE onK790GVpsRvY8IPBwm rSnN7EaMRXelXabGfP1 a5B5Uw5Yf5KywehoF4X qkGWjWfWcElaaNPp0Y4 RkPjwvdHI+GL43WYDxZ J68ECs4UPG5vVufYDnm OADkP4VrnN3eKfGeGRL kZGRkOyc+PHRhYmxlIH dpZHRoPScxMDAlJyBzd SqcCB3vSn3iJVPcEDKe iWdxpNMdUuNcn8yoPWL mNJhgDJ4dgOjaD9PizL L9PRVfj8y0Uv04X33zW 3JvdXA+RGPheYU0ySN8 hP1kByLaSuY3WNieA99 8AaZkfYXpQpbsb9lgd8 jbrJi1QtX8MSNxuiLkm RnrJDL1s0DxHm26O69a IHdpZHRoPSIxNSUiIHZ eaEyanu5wqQ2tKi8+PG QyxZH3kWE0kM7dGuKsI pQ7NOaxN802IrNskMXe Ooslt3dck3ymeOb2VmQ hDTNlpiPixHquHBE6o7 DrMc01Z7YsmUxhx2PbH gw0af88sJYrm7O0hKT5 T1CeNPUrglwvdWKlmLw qEY8zSHUkrvjzCREbaF 0kWULzM3h5QjPcYxN8F TnyW6NrbgZ0SRBbvBCm UFIbsJVWkA9ahxqmc9v zpjrfLqCpVHScPGm2BM u0QMDepWzkAuIyLBR6U zY5OTX7bGZiuZ7dsRer ianykV0vFmx+VYE9cYB nnGXIUY2eQfbqlFR+PH RwWOS5kJavXVjtMBArk R1yENLlC1d4MhZlQhB1 IXupN1LqzdA5EMBbvMA nIOSskBPDiH2ghfqgp4 dmchuzZaOpBQBuPCc3M Yf9DFYdcJdiYuXvCCK3 OwK1DBQ7vSYymZ7liQw fenelhH4tAvr+QmlydG wnQST6MOn2K6ScYik5E TNqrMjcFJ8qlCIyREov Ga1ajWxbrClqAJ3lPJH byzxmu701KfZmd2jqPG WhnUNuAQtsKRG0G50lx 7P3XFHnPYEjSZF1iCM9 uT3fqKjnvalzrHJpxKp gdmVydGljYWwtYWxpZ2 11NNAufQnyOsNfWSu5T 1FqMrp3POMaoIjzLK7y vMSbWBqiAb6ihMkahEf tBP9jLVBsakbzq318Tq Qci5chFTAckXMdPDbxB IM7I55cb5G8CZAsPWZi TFP9kGL9hI8xlMteslq gbGVmdDsgdmVydGljYW rwAQkiE197GMXqsIlrK eUmuId3F3AhYax2CCCy iYwzRU2epGSdAXhjOf5 kcMvpgTdqUI4mYDSqql afp052UcEzw6doLOSbi NSlFIpiTYS1D63pk7R4 NVLaSTHrFZN6cWS7xX5 hbGlnbjogbGVmdDsgdm ItmGdbVXjfLAerS945B HRvcDsnPlBhdGllbnQg ZZjcXTz1C9EwHqnmrGP +BJ35SQIkOF81dYOmiZ Smg6zjzXr1YbQxQUCdE VA0yFfiNTkdf7DxZKXh V84juYUkn7X3HGZeoVo tmDGvPjZvzDQ9yI0wQU eavhors8ijukldRwgpl 7gskk65cA48R92nKEzg ZHRoPSIzMCUiIHZhbGl vhs4hqY5eFb6+PGNvbC P3pSZ4sZ1lJEBkAaR6D EnkQ367VtHouRQxObjp f7nsl1orvIb1UhR5AUW mvfGlmUcvMCR3k3YuFj 96K13qPDxvXAIjWNElY JVnCKMlhZkhwg6xuD0t Ii8+OGGgtSH3gNT5oI5 oTaOnPwV7RHpkR352Kr OhuAWyFmcgG98mY9Cmz XA+DGWlPhj1ORFpdJff XK2ygQOxCEuqOo7eXYT 2MgUnRlKbSSdsD2KvLM PrmnfdhzlhzIR2FXXtK LGgyJ40Iu8vbQgaJZJy ePSKdT9gardax3iifeq oNuAiTIUsIAw2WWr8TU DbaWviNuFqAON6VaP3S HH8zMHmnZ5sdVhkkdnh aR5tR6PqAIHnuzdwUx4 3rC2tRoUcTqG9EUvaJs c+AtYTCgbsWb1KDAPUZ H14ZT61bDPlc1B9fOJ9 C7HeNJMwwnqllvmpeEJ 9TNNhDPLvsS15vIZnMQ bhWc8yv6M5m473XXOlY SDhoJ00Kf6ysHblWJJg jNCAnB8mwddoj1rtfrz sBgSaTEQgUIs0XZt3SJ YcdLtlBzKpFTZ8MeI6I RM8iTOhtM0dkQvypxsk mT2vRva+MDYvMDkvMTk 0MjwvdGQ+GXSnBPL6zN mtOTidPGAssL4dWUDnK 9a9JzNyTiQ0UBjzW6Tp DNWxodshZh41cN0jDqX fJrM1QRwjF0YeymL1GB ZdoAJcCIsjCBM1J69hq 4X8DNMwCHOwCBB6uYM7 zX9yoDuwmdntzWFygWa gdmVydGljYWwtYWxpZ2 46IHRvcDsnPjgyIFllY EHgFR65TN94gRJyc5V6 tGT5C2BtGDHylmevcxp sqVW2PJZnZEJzbH03wU OxSAonCp6pl9H2k337R COdVBPmmH89Ta9fvPuv GPAntPVXuI0stoqwf6q fxvfdJnAiXGYbBPy7KC f1GCBggYyoVcAwSUH9V eY5DXX6gVUauS8dzZhc rljmoD3aZqr+TWFsZTw vdGQ+OBDfTQV8fVefXU qgOATwaT8oACUvO1i4Y aDuUbG0XWkgV7WcMSBw txcgLv15kV6lPnYuMxL 6KAoxI5VjqqL1DJOpdK SzSTpyGAD5X02hj3A9Y KRqYPHlZKE9rXR2hG8q bGlnbjogbGVmdDsgdmV qbCsuKRgzHTsuV147CT EgjBkmWeorSeQClv9uV G5pAaclzUP+KZ59wu79 X1KdCixcRnv5UIPyWIS 3sFZ9dQ1dZQBvPUnfg7 H8aHF3U8TjjyBkep9hv 2zyBUWyNDicQ13rmZSi r8Q3GGQpvFZ9JRPiaRy yQiNveI72Fcf+PGNvbG cqk4IkUkuzf4hvh3cqs Dj5GcNkRZNdpbVdzKwr YUW3f5RhAt77N71dAJu pZHRoPSIzMCUiIHZhbG kiou1afJ8zNp4+PGNvb RR9rGH0pW1eWsXwReD9 QPugK480BnGlfRVlElx jj2kdn8gxgOd1OtVlFM HyjiPsyOciSSX4o8TmV l72N1HloQqrb7VmOjd6 bn27gSPos4H0tHO4R7F hZGRpbmctbGVmdDogMC 7bLAKrexdeAEFsiW4nE LWeW1v6LeUsQbP3DMzl O2RxscE4KVBynBNkEIK xkMSTfQ0paevzd3jppr plAsJnYGQtXLu0KXb6D USyqKjdNdPyXVZ9ZdG5 JQF5rJQgsM5rtWptbkj fnU1eOhz+LTs4y4tsuE UsFX3usBJ5GX83UP94v CTry7W3gJJ4S9QgNJDx dhiktqxsrOE9JNDfZGV ejY44By0clBwaSa4eKI ZrKWZ9ESQlmGLbS4Tha E7vFrByBDNmCKWtW5Zz fGNsRJczL605UEtoHzV 1PPUinzYcV2ZcLKIqyX aaHnR5h8M0Qp8DSA48F I33IG38eOOzz1O4gVL1 G5RdWNExuvrrpmkmpTM 8NGHoMNDwwS03Wr9hxV miIo6dNPHjTEP7QSOhq TFwN8LiaC3zHzIuQUDe HVEzY4DrvEDjUMkkC06 9DPcfLxS5GTCdfeSsJ3 UfLEPwsBmoCzX8e1S1O k9YTx23YK89AS24rZXq d6U2qYH4F3QmCCPzath uszhgcTP3KWVyHCRxgL 97Vf2oqCaqQr1oOOLxX MK8SEJwrSVtF4DicL3g DlVgHLLoFOFtG8VqvXV sYTjlJ772ZPueZqH1IA AuzeJbY5SaOPXfwFajV hK8m2Z0At6YSKguioc3 K2JpFboyxQU+XR30NGP mMJ48xRYmtWOud8zpcD u1QwTyPXQiIBQ6jEfaY Pfmk5XbJIGrT78nvKGs i8Y2MQYjfSyvk (more content not included)... Normal [facility] Consultation Noteon 05-07-20 Consultation Note [id number] D#1.00TIFF Normal [facility] Ambulatory Visit Summaryon 0 05-03-2024 Ambulatory Visit [...] Ericka COHN, Kashif Craig Where: [facility] [place] 2023 9:15 AM EST With: Adam COHN, Kylah Cole Where: [facility] Medicine [place] [id number] [place] [id number] \.br\ Medications\.br\ What How Much When Instructions\.br\ [...] to adjust your dosage.\.br\ ? \.br\ Take xsls-cao-lunbtfc and prescription medicines only as told by [...] active. Exercise regularly, as told by your [facility] Ambulatory Visit Summary DARIEL ZABALA :1940 Visit [...] Ericka COHN, Kashif Craig Where: [facility] [place] 2023 9:15 AM EST With: Adam COHN, Kylah Cole Where: [facility] [place] Normal [address] [place] [address]- \.br\ Medications\.br\ What How Much When Instructions\.br\ [...] of cylinders, a pump, and a reservoir. [facility] Medicine Office/Clini c Noteon 05-03-2024 Family [...] has just been busy, Renetta Abdullahi LPN Lis - 05/03/2024 8:01 EDT Advance Directive FT [...] 08:24:28 EDT Procedure Dt/Tm: 03/26/2024 ; Location: [facility] ; Anesthesia Minutes: 0 ; Procedure [...] Renetta Abdullahi LPN - 05/03/2024 8:01 EDT [facility] Sexual problems : Never [...] Depression Screening (more content not included)... 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, 178.2, cm, 02/02/24 10:29:00 EDT, Height/Length Dosing, 84.1, kg, 02/02/24 10:29:00 EDT, Weight Dosing sodium chloride, See Instructions, TAKE 1 TABLET BY MOUTH TWICE DAY, # 90 tab(s), Refills(s) 2, Pharmacy: [id number], 180.5, cm, 03/20/24 15:05:00 EDT, Height/Length [...] Abuse, 03/06 (more content not included)... Normal [facility] Comment on above: Result Comment: No brambilaally Signed By: Adam COHN, Kylah Lopez.br\Date and [...] night-lights. ? Place frequently used items in zopr-qi-vwdda places. Lower the shelves around your home [...] the way. ? Do not use floor malagasy or wax that makes floors slippery. If [...] include working with a physical therapist or show dog trainer to improve your strength, balance, and endurance. Where to find more information ? Centers for Disease Control and Prevention, [place]: www.cdc.gov ? National [place] on Aging: www.kieran.nih.gov Contact a health care [...] health ca (more content not included)... Normal [facility] Patient Education Urology Erectile Dysfunction Erectile dysfunction [...] these instructions at home: Medicines ? Take sqom-bcm-ujcomhc and prescription medicines only as told by [...] include cig (more content not included)... Normal [facility] Screenson 05-03-2024 Screens [id number] 2#1.00TIFF Normal [facility] CBC w/ Auto Diffon 4 Basophils/100 WBC (Bld) 0.9 % Normal 0.0-2.0 [facility] Comment on above: Performed By: #### 2 [id number] #### [facility] Laboratory [address] [place] [address] Basophils/Leukocytes Auto (Bld) [Pure # fraction] 0.0 E9/L Normal 0.0-0.2 [facility] Comment on above: Performed By: #### 2 [id number] #### [facility] [address] [place] [address] Eosinophils (Bld) [#/Vol] 0.1 E9/L Normal 0.0-0.5 [facility] Comment on above: Performed By: #### 2 [id number] #### [facility] [address] [place] [address] Eosinophils/100 WBC (Bld) 2.4 % Normal 0.0-8.0 [facility] Comment on above: Performed By: #### 2 [id number] #### [facility] [address] [place] [address] Erythrocyte distribution width (RBC) [Ratio] 14.4 % High 10.9-14.2 [facility] Comment on above: Performed By: #### 2 [id number] #### [facility] [address] [place] [address] Hematocrit (Bld) [Volume fraction] 42.2 % Normal 37.7-49.0 [facility] Comment on above: Performed By: #### 2 [id number] #### [facility] [address] [place] [address] Hemoglobin (Bld) [Mass/Vol] 14.0 g/dL Normal 13.5-17.5 [facility] Comment on above: Performed By: #### 2 [id number] #### [facility] [address] [place] [address] Lymphocytes (Bld) [#/Vol] 1.4 E9/L Normal 1.0-4.0 [facility] Comment on above: Performed By: #### 2 [id number] #### [facility] [address] [place] [address] Lymphocytes/100 WBC (Bld) 34.0 % Normal 14.0-50.0 [facility] Comment on above: Performed By: #### 2 [id number] #### [facility] [address] [place] [address] MCH (RBC) [Entitic mass] 30.8 pg Normal 27.0-34.0 [facility] Comment on above: Performed By: #### 2 [id number] #### [facility] [address] [place] [address] MCHC (RBC) [Mass/Vol] 33.1 g/dL Normal 31.4-36.0 [facility] Comment on above: Performed By: #### 2 [id number] #### [facility] [address] [place] [address] MCV (RBC) [Entitic vol] 92.9 fL Normal 80.0-100.0 [facility] Comment on above: Performed By: #### 2 [id number] #### [facility] Laboratory [address] [place] [address] Monocytes (Bld) [#/Vol] 0.4 E9/L Normal 0.2-1.0 [facility] Comment on above: Performed By: #### 2 [id number] #### [facility] Laboratory [address] [place] [address] Neutrophils (Bld) [#/Vol] 2.2 E9/L Normal 2.0-7.5 [facility] Comment on above: Performed By: #### 2 [id number] #### [facility] Laboratory [address] [place] [address] Neutrophils/100 WBC (Bld) 53.4 % Normal 36.0-75.0 [facility] Comment on above: Performed By: #### 2 114208 #### [facility] Laboratory [address] [place] [address] Platelet 166.0 E9/L Normal 150.0-500.0 [facility] Comment on above: Performed By: #### 2 [id number] #### [facility] Laboratory [address] [place] [address] Platelet mean volume (Bld) [Entitic vol] 9.8 fL Normal 6.4-10.8 [facility] Comment on above: Performed By: #### 2 [id number] #### [facility] Laboratory [address] [place] [address] RBC (Bld) [#/Vol] 4.5 E12/L Normal 4.3-5.9 [facility] Comment on above: Performed By: #### 2 [id number] #### [facility] Laboratory [address] [place] [address] WBC corrected for nucl RBC Auto (Bld) [#/Vol] 4.2 E9/L Normal 4.0-11.0 [facility] Comment on above: Performed By: #### 2 710938 #### [facility] Laboratory [address] [place] [address] CHEMISTRYOrdered By: SYSTEM SYSTEM on 05-01-2024 Albumin [...] used for this result was chemiluminescence using [employer] Access Hybritech PSA reagent. Protein [Mass/Vol] 7.1 [...] 05-01-2024 Albumin [Mass/Vol] 4.2 g/dL Normal 3.3-5.0 [facility] Comment on above: Performed By: #### 2 [id number] #### [facility] Laboratory [address] [place] [address] Albumin/Globulin (S) [Mass conc ratio] 1.4 Normal 1.1-2.2 [facility] Comment on above: Performed By: #### 2 682392 #### [facility] Laboratory [address] [place] [address] ALP [Catalytic activity/Vol] 83 Int._Unit/L Normal 21-98 [facility] Comment on above: Performed By: #### 2 071715 #### [facility] Laboratory [address] [place] [address] ALT No additional P-5'-P [Catalytic activity/Vol] 14 Int._Unit/L Normal 6-46 [facility] Comment on above: Performed By: #### 2 064198 #### [facility] Laboratory [address] [place] [address] Anion gap [Moles/Vol] 10 mmol/L Normal 6-16 [facility] Comment on above: Performed By: #### 2 039521 #### [facility] Laboratory [address] [place] [address] AST [Catalytic activity/Vol] 22 Int._Unit/L Normal 5-43 [facility] Comment on above: Performed By: #### 2 953121 #### [facility] Laboratory [address] [place] [address] Bilirubin [Mass/Vol] 0.9 mg/dL Normal 0.0-1.1 [facility] Comment on above: Performed By: #### 2 056698 #### [facility] Laboratory [address] [place] [address] Calcium [Mass/Vol] 9.5 mg/dL Normal 8.9-11.1 [facility] Comment on above: Performed By: #### 2 709924 #### [facility] Laboratory [address] [place] [address] Chloride [Moles/Vol] 103 mmol/L Normal 101-111 [facility] Comment on above: Performed By: #### 2 776158 #### [facility] Laboratory [address] [place] [address] CO2 [Moles/Vol] 29 mmol/L Normal 21-31 [facility] Comment on above: Performed By: #### 2 539154 #### [facility] Laboratory [address] [place] [address] Creatinine [Mass/Vol] 1.1 mg/dL Normal 0.5-1.3 [facility] Comment on above: Performed By: #### 2 364812 #### [facility] Laboratory [address] [place] [address] Globulin (S) [Mass/Vol] 2.9 g/dL Normal 1.4-4.0 [facility] Comment on above: Performed By: #### 2 985319 #### [facility] Laboratory [address] [place] [address] Glucose [Mass/Vol] 104 mg/dL Normal 55-199 [facility] Comment on above: Performed By: #### 2 911128 #### [facility] Laboratory [address] [place] [address] Potassium [Moles/Vol] 5.2 mmol/L Normal 3.5-5.3 [facility] Comment on above: Performed By: #### 2 991110 #### [facility] Laboratory [address] [place] [address] Protein [Mass/Vol] 7.1 g/dL Normal 6.0-7.8 [facility] Comment on above: Performed By: #### 2 752068 #### [facility] Laboratory [address] [place] [address] Sodium [Moles/Vol] 137 mmol/L Normal 135-145 [facility] Comment on above: Performed By: #### 2 391619 #### [facility] Laboratory [address] [place] [address] Urea nitrogen [Mass/Vol] 15 mg/dL Normal 5-21 [facility] Comment on above: Performed By: #### 2 549584 #### [facility] Laboratory [address] [place] [address] Urea nitrogen/Creatinine [Mass ratio] 14 No Units Normal 10-20 [facility] Comment on above: Performed By: #### 2 096938 #### [facility] Laboratory [address] [place] [address] Consent for Treatmenton 04-14 Consent for Treatment [id number] 72#1.00TIFF Normal [facility] HEMATOLOGYOrdered By: SYSTEM SYSTEM on 05-01-2024 Basophils/100 [...] Remisol Heme Lab Reportson 05-01-2024 Lab Reports [id number] E#1.00TIFF Normal [facility] Lipid Panelon 05-01-2024 Cholesterol [Mass/Vol] 168 mg/dL Normal 120-200 [facility] Comment on above: Performed By: #### 2 856904 #### [facility] Laboratory [address] [place] [address] Cholesterol in HDL [Mass/Vol] 54 mg/dL Invalid Interpretation Code [facility] Comment on above: Result Comment: '>= 60 LOW RISK' '<= 40 HIGH RISK' Performed By: #### 2 126014 #### [facility] Laboratory [address] [place] [address] Cholesterol in LDL [Mass/Vol] 99 mg/dL Normal <=129 [facility] Comment on above: Performed By: #### 2 085223 #### [facility] Laboratory [address] [place] [address] Cholesterol in VLDL [Mass/Vol] 16 mg/dL Normal 7-40 [facility] Comment on above: Performed By: #### 2 558651 #### [facility] Laboratory [address] [place] [address] Triglyceride [Mass/Vol] 78 mg/dL Normal <=149 [facility] Comment on above: Performed By: #### 2 038375 #### [facility] Laboratory [address] [place] [address] Nurse Consultation Noteon Nurse Consultation Note Reason [...] influenza virus vaccine, inactivated 08/02/2014 Recorded Normal [facility] PSA Screen, Totalon 05-01-20 24 Prostate specific Ag [Mass/Vol] 1.3 ng/mL Normal 0.1-3.5 [facility] Comment on above: Result Comment: The concentration of PSA determined by different manufacturers can vary due to differences in assay methods and reagent specificity. Values obtained from different assay methods cannot be used interchangeably. The methodology used for this result was chemiluminescence using [employer] Access Hybritech PSA reagent. Performed By: #### 1 [id number] #### [facility] Laboratory [address] [place] [address] eGFRon 05-01-2024 eGFR 67 mL/min/1.73 m2 Normal >=59 [facility] Comment on above: Order Comment: Order added by Discern Expert. Performed By: #### 1 [id number] ####[facility] [address] [place] [address] Physician Orderon 04-23-2024 Physician Order [id number] 859#1.00TIFF Normal [facility] Consent for Treatmenton Consent for Treatment [id number] #1.00TIFF Normal [facility] Heart and Vascular Office/Cl inic Noteon 04-20-2024 [...] or orthopnea. 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, location unknown, however, has not been followed [...] Recorded influenza virus vaccine, inactivated 08/02/2014 Recorded [facility] Comment on above: Result Comment: Elec tronically Signed By: Ericka COHN, Kashif Craig\.br\Date and Time Signed: 04/20/24 13:49 EDT Insurance Correspondenceon 0 04-20-2024 Insurance Correspondence [id number] 559#1.00TIFF [facility] Consultation Noteon 04-10-20 Consultation Note .[id number] 1#1.00TIFF [facility] Postoperative Documentson Postoperative Documents [id number] 811#1.00TIFF [facility] Consultation Noteon 03-29-20 Consultation Note [id number] B4#1.00TIFF [facility] Lab Reportson 03-29-2024 Lab Reports [id number] DF#1.00TIFF [facility] RAD - MISCon 03-29-2024 RAD - MISC [id number] 19#1.00TIFF Normal [facility] IntraOperative Documentson 0 03-28-2024 IntraOperative Documents [id number] 516#1.00TIFF Normal [facility] Consent for Anesthesiaon Consent for Anesthesia [id number] 28#1.00TIFF Normal [facility] Discharge Instructionson Discharge Instructions [id number] 47#1.00TIFF Normal [facility] IntraOperative Documentson 0 03-27-2024 IntraOperative Documents [id number] 36#1.00TIFF Normal [facility] Main OR Intraoperative Recor don 03-27-2024 Main OR Intraoperative Record IntraOp Document Type FT Summary Primary Physician: Axel Hernández DO Finalized Date/Time: 03/27/24 09:11:12 Pt. Name: DARIEL ZABALA/Sex: 1940 Male Med Rec #: [id number] Physician: Axel Hernández DO Financial #: [id number] Pt. Type: A Room/Bed: [facility] Admit/Disch: 03/26/24 09:11:44 - 03/26/24 14:30:00 Institution: [...] T Role Performed Anesthesiologist Surgeon - Primary Residential Mortgage Manager - Primary Pattern Storage Clerk Time In 03/26/24 12:20:00 03/26/24 12:20:00 03/26/24 12:20:00 Time Out 03/26/24 12:53:00 03/26/24 12:53:00 03/26/24 12:53:00 Procedure FINGER TRIGGER FINGER TRIGGER FINGER TRIGGER RELEASE(Right) RELEASE(Right) RELEASE(Right) Comments DR CARDONA SUPERVISING Last Modified By: Ambrocio Borges Terry T Sweene, Terry T 03/26/24 13:03:32 03/26/24 13:03:32 03/26/24 13:03:32 Entry 4 Entry 5 Entry 6 Case Attendee Shola STEEL, Marium Guidry RN, Rich Nickerson Role Performed DOMESTIC TECHNICIAN/SA Scrub - Primary Staff - Other Time [...] Participants Axel Hernández DO, Sweene, Terry T, Wilhelm CST, Nidhi Gautam Madison A Time Out Complete 03/26/24 12:34:00 [...] and tissue Entry 1 Skin Integrity Intact, [place], Warm, and Skin Abnormality No Dry Outcomes Met? Yes Last Modified By: Ambrocio Borges 03/26/24 12:36:42 Post-Care Text: The patient is free from signs and symptoms of injury caused by extraneous objects Patient Positioning FT Pre-Care Text: Identifies physical alterations that require additional precautions for procedure-specific positioning, verifies presence of prosthetics or correctiv (more content not included)... Normal [facility] Operative Reporton Operative Report SURGERY DATE: 03/26/2024 [employer]: Chica Jolley C.F.A. PREOPERATIVE DIAGNOSIS: Right little [...] patient's condition satisfactory Deanna Weller Dictated: 03/26/2024 [id number] Transcribed: 03/26/2024 cc:Kylah Garcia M.D. [facility] Comment on above: Result Comment: Elec tronically Signed By: Axel Hernández DO\.br\Date and Time Signed: 03/27/24 07:40 EDT Preoperative Documentson Preoperative Documents [id number] 14#1.00TIFF [facility] Progress Note-Physicianon Progress Note-Physician Patient: DARIEL [...] 2 causing vascular disease / SNOMED CT 812549816 / Confirmed Trigger finger / SNOMED CT 333591651 / Confirmed Syncope / SNOMED CT 236772979 / Confirmed Body mass index (BMI) of 25.0-25.9 in adult / SNOMED CT 5763931245 / Confirmed Osteoarthritis / SNOMED CT 7991713527 / Confirmed Encounter for surveillance of abnormal nevi / SNOMED CT 5473262208 / Confirmed Laceration of head / SNOMED CT 0232500530 / Confirmed Hyponatremia / SNOMED CT 100742626 / Confirmed Hyperlipidemia / SNOMED CT 98931500 / Confirmed Fall at home / SNOMED CT 81259492 / Confirmed ED (erectile dysfunction) / SNOMED CT 0462556472 / Confirmed Carpal tunnel syndrome, left / SNOMED CT 20250781 / Confirmed Afib / SNOMED CT 13862015 / Confirmed ASCVD (arteriosclerotic cardiovascular disease) / SNOMED CT 375339147 / Confirmed Histories Procedure history: Surgery, neck X 2 ([id number]). Carpal tunnel release (917386617). Social History Social & Psychosocial Habits Alcohol [...] adequate air exchange. Cardiovascular: Regular rhythm. Plan [place] [employer]esthesiologists (ASA) physical status classification: Class III. Anesthetic Preoperative Plan: Anesthesia General. Normal [facility] Comment on above: Result Comment: [...] meets criteria ( To home ). Normal [facility] Comment on above: Result Comment: Elec tronically Signed By: Chau Cardoan Jr, DO\.br\Date and Time Signed: 03/27/24 12:32 EDT CHEMISTRYOrdered By: Lab ROP User on 03-26-2024 Glucose [Mass/Vol] 92 mg/dL Normal 55 - 99 mg/dL [facility] POC Subsection Comment on above: Result Comment: Justine garcia RN/MD POC Device SN [id number] 1 Invalid Interpretation Code [facility] POC Subsection POC User ID [id number] 1 Invalid Interpretation Code [facility] POC Subsection POC Username LORNA WILSON Invalid Interpretation Code [facility] POC Subsection COAGULATIONOrdered By: Toshia Tadeo on 03-26-2024 aPTT Coag (PPP) [Time] 35.8 s Normal 25.1 - 36.5 second(s) [facility] Auto Coag Comment on above: Interpretive Data: Rashel pedrazaer 15 days - 4 weeks 1 - 5 months 6 - 11 months 1 - 5 years 6 - 10 years 11 - 17 years PTT Mean: 35.4 (27.6-45.6) Mean: 33.5 (24.8-40.7) Mean: 32.4 (25.1-40.7) Mean: 31.6 (24.0-39.2) Mean: 31.6 (26.9-38.7) Mean: 31.0 (24.6-38.4) Pediatric Reference ranges were obtained from a study by alton Burk prepared from 1437 samples obtained at 7 different centers using the same coagulation reagent and instrumentation as [facility]. Currently there are no coagulation studies available worldwide for children to 14 days, and no normal ranges. Heparin therapeutic range (represented by Anti-Factor Xa activity of 0.2 - 0.4 U/mL) corresponds to PTT of 56.6 - 109.0 sec. PT Coag (PPP) [Time] 13.4 s High 9.4 - 1 2.5 second(s) [facility] Auto Coag Comment on above: Interpretive Data: [...] the same coagulation reagent and instrumentation as [facility]. Currently there are no coagulation studies available worldwide for children to 14 days, and no normal ranges. Capillary Glucose POCon 03-14 Glucose [Mass/Vol] 92 mg/dL Normal 55-99 [facility] Comment on above: Result Comment: Justine garcia RN/ Performed By: #### 2 [id number] #### [facility] Laboratory [address] [place] [address] Consent for Procedure/Surger yon 03-26-2024 Consent for Procedure/Surgery [id number] 421#1.00TIFF Normal [facility] Consent for Treatmenton 03-14 Consent for Treatment [id number] E9#1.00TIFF Normal [facility] Discharge Instructionson Discharge Instructions DARIEL ZABALA :1940 Visit Date:03/26/2024 Inpatient Discharge Instructions Your Care Team Admitting Physician - Axel Hernández DO Referring Physician - Axel Hernández DO Reason for Your Visit RIGHT LITTLE FINGER TRIGGER FINGER Your Diagnosis Trigger finger, right little finger This Is Your Medications List Turmeric (Turmeric 500 mg oral capsule) acetaminophen-hydro codone ([place] 325 mg-5 mg oral tablet) atenolol (atenolol [...] AM EDT Comments: Keep scheduled appointment Where: [address] [place] [address]- [facility] (1) Medications What How Much When Why Instructions Next Dose Unchanged acetaminophen-hydro codone ([place] 325 mg-5 mg oral tablet) See instructions Trigger finger, right little finger 1 tab(s) Oral q4hr PRN Pain. Duration 7 days. Pickup at [facility]/pharmacy #[id number] Unchanged atenolol (atenolol 25 mg Tab) 1 [...] Tablets By Mouth Every day Pharmacy Information [facility]/pharmacy #[id number]: [address], [place] [id number] [phone] Problems Ongoing - Any problem that you [...] and med (more content not included)... Normal [facility] Comment on above: Result Comment: Elec tronically Signed By: Sloan KHAN, Rudy Pereira\.br\Date and Time Signed: 03/26/24 14:03 EDT H&P Updateon 03-26-2024 H&P Update [id number] 633#1.00TIFF Normal [facility] Main OR PACU I Recordon 03-14 Main OR PACU I Record PACU Phase I Document Type FT Summary Primary Physician: Axel Hernández DO Finalized Date/Time: 03/26/24 13:38:42 Pt. Name: DARIEL ZABALA/Sex: 1940 Male Med Rec #: [id number] Physician: Axel Hernández DO Financial #: [id number] Pt. Type: A Room/Bed: [place] [address] Admit/Disch: 03/26/24 09:11:44 - Institution: Case Times [...] By: Vicki Sethi RN 03/26/24 13:38 Normal [facility] Main OR PACU II Recordon Main OR PACU II Record PACU Phase II Document Type FT Summary Primary Physician: Axel Hernández DO Finalized Date/Time: 03/26/24 16:11:30 Pt. Name: DARIEL ZABALA/Sex: 1940 Male Med Rec #: [id number] Physician: Axel Hernández DO Financial #: [id number] Pt. Type: A Room/Bed: [facility] Admit/Disch: 03/26/24 09:11:44 - 03/26/24 14:30:00 Institution: [...] By: Rudy Lisa RN 03/26/24 16:11 Normal [facility] Main OR Preoperative Recordo n 03-26-2024 Main OR Preoperative Record PreOp Document Type FT Summary Primary Physician: Axel Hernández DO Finalized Date/Time: 03/26/24 13:07:41 Pt. Name: DARIEL ZABALA Mary/Sex: 1940 Male Med Rec #: [id number] Physician: Axel Hernández DO Financial #: [id number] Pt. Type: A Room/Bed: Admit/Disch: 03/26/24 09:11:44 - Institution: Case Times [...] 03/26/24 13:05 Ambrocio Borges 03/26/24 13:07 Normal [facility] Monitor Recordon 03-26-2024 Monitor Record [id number] 220#1.00TIFF Normal [facility] Monitor Record [id number] 270#1.00TIFF Normal [facility] PT & PTTon 03-26-2024 aPTT Coag (PPP) [Time] 35.8 second(s) Normal 25.1-36.5 [facility] Comment on above: Result Comment: Para meter [...] the same coagulation reagent and instrumentation as [facility]. Currently there are no coagulation studies available worldwide for children to 14 days, and no normal ranges. Heparin therapeutic range (represented by Anti-Factor Xa activity of 0.2 - 0.4 U/mL) corresponds to PTT of 56.6 - 109.0 sec. Performed By: #### 1 [id number] ####[facility] [address] [place] [address] PT Coag (PPP) [Time] 13.4 second(s) High 9.4-12.5 [facility] Comment on above: Result Comment: 15 d [...] the same coagulation reagent and instrumentation as [facility]. Currently there are no coagulation studies available worldwide for children to 14 days, and no normal ranges. Performed By: #### 1 [id number] ####[address] [address] PT & PTTOrdered By: Starr linda on 03-26-2024 INR Coag (PPP) [Relative time] 1.19 {INR} Invalid Interpretation Code [facility] Auto Coag Comment on above: Interpretive Data: [...] 3.0 ? 4.5 Performed By: #### 1 [id number] ####[facility] [address] [place] [address] Patient Education - Texton 0 03-26-2024 Patient [...] ? Doing activities that require a strong oxidation engineer. ? Having rheumatoid arthritis, gout, or diabetes. [...] on your hand. General instructions ? Take qhpb-awi-utkyuat and prescription medicines only as told by [...] care provide (more content not included)... Normal [facility] Ambulatory Visit Summaryon 0 03-20-2024 Ambulatory Visit [...] Appointments Tuesday 12:30 PM EDT With: Where: [facility] Tuesday 9:00 AM EDT With: Where: [facility] Invalid Interpretation Code [address] [place] [address]- \.br\ 2023 9:00 AM EDT \.br\ With: Adam COHN, Kylah Cole\.br\ Where: [facility] Medicine [facility] Consent for Procedure/Surger yon 03-20-2024 Consent for Procedure/Surgery [id number] 969#1.00TIFF Normal [facility] Office/Clini c Noteon 03-20-2024 Family Medicine Office/Clinic Note HPI Staff Dariel is an 83 year old male presenting for ER follow up needs his andre removed ER followup: Hospital: [facility] Visit date: 03/10/24 Symptoms the patient presented [...] - Hold coumadin tomorow for surgery Ordered: [facility] Internal Ambulatory Referral 2. Fall at home (W19.XXXA: Unspecified fall, initial encounter) - 2/2 syncope - Nausea before syncope - Will refer to Cardio for evaluation of continues syncope Ordered: [facility] Internal Ambulatory Referral 3. Laceration of head (S01.91XA: Laceration without foreign body of unspecified part of head, initial encounter) - Stables removed - no issues. Ordered: [facility] Internal Ambulatory Referral 4. Syncope (R55: Syncope and collapse) - Will send to Cardio for further work up Ordered: [facility] Internal Ambulatory Referral 5. Hyponatremia (E87.1: Hypo-osmolality and hyponatremia) - Recheck BMP today - Follow up with Nephrology Ordered: [facility] Internal Ambulatory Referral 6. Over weight (E66.3: [...] influenza virus vaccine, inactivated 08/02/2014 Recorded Normal [facility] Comment on above: Result Comment: Elec tronically Signed By: Adam COHN, Kylah Cole\.br\Date and Time Signed: 03/20/24 15:31 EDT Inpatient Patient Summaryon 03-20-2024 Inpatient Patient Summary [facility] [address] [place], [place] [address] [facility] [facility] Clinical Discharge Instructions PERSON INFORMATION Name: DARIEL ZABALA PHYSICIANS Admitting Physician: Axel Hernández DO Attending Physician: Axel Hernández DO PCP: Kylah Garcia MD Discharge Diagnosis: Trigger finger, right little finger Comment: PATIENT EDUCATION INFORMATION Instructions: Trigger Finger Medication Leaflets: Follow up: With: Address: When: Axel Hernández [address] [id number] [facility] () Comments: Keep scheduled appointment Type Location Start [facility] Surgical Services 03/26/2024 12:30 PM 03/26/2024 12:45 PM Confirmed FM Lab Draw [facility] 05/01/2024 9:00 AM 05/01/2024 9:20 AM Confirmed FM Medicare Wellness [facility] 05[facility]03/[facility] 8:00 AM 05/03/2024 9:00 AM Confirmed FM Open [facility] 05/03/2024 9:00 AM 05/03/2024 9:15 AM [...] mg oral capsule) ubiquinone (CoQ10) Comment: Normal [facility] Outpatient Surgery Discharge Instructionon 03-20-2024 Outpatient Surgery Discharge Instruction [place] [id number] Patient Discharge Instructions PERSON INFORMATION Name: DARIEL ZABALA Date of : 1940 Current Date: 03/20/2024 17:16:59 PHYSICIANS Admitting Physician: Axel Heránndez DO Discharge Diagnosis: Trigger finger, right little [...] Follow up: With: Address: When: Axel Hernández [address] [place] [address] [facility] (1) Comments: Keep scheduled appointment Type Location Start [facility] Surgery [facility] Surgical Services 03/26/2024 12:30 PM 03/26/2024 12:45 PM Confirmed [facility]/01/[facility] 9:00 AM 05/01/2024 9:20 AM Confirmed FM Medicare Wellness [facility] 05/03/2024 8:00 AM 05/03/2024 9:00 AM Confirmed FM Open [facility] [place] 05/03/2024 9:00 AM 05/03/2024 9:15 AM Confirmed [...] to serve you. Thank you for choosing [facility] HERE ARE THE MEDICATION CHANGES THAT [...] finger ca (more content not included)... Normal [facility] ECG 12-Leadon 03-12-2024 ECG 12-Lead [id number] EC#1.00TIFF Normal [facility] ED Note-Physicianon 03-12-20 24 ED Note-Physician [id number] A7#1.00TIFF Normal [facility] RAD - CT Reporton 03-12-2024 RAD - CT Report [id number] 20#1.00TIFF Normal [facility] RAD - CT Report [id number] A4#1.00TIFF Normal [facility] RAD - MISCon 03-12-2024 RAD - MISC [id number] 55#1.00TIFF Normal [facility] Ambulatory Visit Summaryon 0 03-08-2024 Ambulatory Visit Summary CLIFFORDDARIEL Solitario :1940 Visit Date:03/08/2024 Ambulatory Visit Instructions Your Diagnosis Trigger finger DM type 2 causing vascular disease Afib Body mass index (BMI) of 25.0-25.9 in adult Hyponatremia Your Care Team Attending Physician - Kylah Garcia MD. Primary Care Physician - Kylah Garcia MD [...] Appointments Tuesday 1:45 PM EDT With: Where: [facility] Tuesday 9:00 AM EDT With: Where: [facility] Invalid Interpretation Code [address] [place] [address]- \.br\ 2023 9:00 AM EDT \.br\ With: Kylah Garcia MD\.br\ Where: [facility] Family Medicine Office/Clini c Noteon 03-08-2024 Family Medicine Office/Clinic Note HPI Staff Dariel is an 83 year old male presenting for surgical clearance Needs clearance and hold coumadin in writing and faxed to Dr Hernández at [phone] Note: he would really benefit for chronic care management if he qualifies ( he walks in here at least once a week with questions Date of surgery: March 26, 2024 Surgeon: Dr Hernández Hospital: [facility] Type of Surgery: rt little finger trigger [...] disorder) - Will send to Derm. Ordered: [facility] External Ambulatory Referral Follow-up No qualifying data [...] virus vaccine, inactivated 08/02/2014 Recorded Normal [facility] Comment on above: Result Comment: Elec [...] numbers. This can be done either in [place] or metric measurements. Note that charts and online BMI calculators are available to help you find your BMI quickly and easily without having to do these calculations yourself. To calculate your BMI in [place] measurements: 1. Measure your weight in [...] for Disease Control and Prevention: www.cdc.gov ? [place] Heart Association: www.heart.org ? National Heart, Lung, and Blood [place]: www.nhlbi.nih.gov Summary ? Body mass index (BMI) is a number that is calculated from a person's weight and height. ? BMI may help estimate how much of a person's weight is composed of fat. BMI can help identify those who may be at higher risk for certain medical problems. ? BMI can be measured using [place] measurements or metric measurements. ? BMI charts are used to identify whether you are underweight, normal weight, overweight, or obese. This information is not intended to replace advice given to you by your health care provider. Make sure you discuss any questions you have with your health care provider. Document Revised: 07/23/2020 Document Reviewed: 05/30/2020 [employer] Patient Education ? 2022 [employer]. Normal [facility] Physician Referralon 024 Physician Referral [id number] 859#1.00TIFF Normal [facility] XR Chest 2 Viewson XR Chest 2 [...] mGy = na DAP = na Normal [facility] BMPon 03-06-2024 Anion gap [Moles/Vol] 10 mmol/L Normal 6-16 [facility] Comment on above: Performed By: #### 1 [id number], 9267222, 9513825 ####[facility] [address] [place] [address] Calcium [Mass/Vol] 9.1 mg/dL Normal 8.9-11.1 [facility] Comment on above: Performed By: #### 1 4316143, 4870747, 8555135 ####[facility] [address] [place] [address] Chloride [Moles/Vol] 102 mmol/L Normal 101-111 [facility] Comment on above: Performed By: #### 1 8231660, 0058875, 9527134 ####[facility] [address] [place] [address] CO2 [Moles/Vol] 28 mmol/L Normal 21-31 [facility] Comment on above: Performed By: #### 1 8760244, 1731680, 9421741 ####[facility] [address] [place] [address] Creatinine [Mass/Vol] 1.0 mg/dL Normal 0.5-1.3 [facility] Comment on above: Performed By: #### 1 9018561, 0254863, 1116321 ####[facility] [address] [place] [address] Glucose [Mass/Vol] 98 mg/dL Normal 55-199 [facility] Comment on above: Performed By: #### 1 5837969, 7041523, 5654922 ####[facility] [address] [place] [address] Potassium [Moles/Vol] 4.3 mmol/L Normal 3.5-5.3 [facility] Comment on above: Performed By: #### 1 6296390, 8762613, 3249848 ####[address] [address] Sodium [Moles/Vol] 136 mmol/L Normal 135-145 [facility] Comment on above: Performed By: #### 1 9241534, 5794395, 4046599 ####[facility] [address] [place] [address] Urea nitrogen [Mass/Vol] 14 mg/dL Normal 5-21 [facility] Comment on above: Performed By: #### 1 0702340, 0591191, 0499043 ####[facility] [address] [place] [address] Urea nitrogen/Creatinine [Mass ratio] 14 No Units Normal 10-20 [facility] Comment on above: Performed By: #### 1 0858254, 5008021, 5558264 ####[facility] [address] [place] [address] CBC w/ Auto Diffon 4 Basophils/100 WBC (Bld) 1.0 % Normal 0.0-2.0 [facility] Comment on above: Performed By: #### 1 3710018, 5440576, 2394232 ####[address] [address] Basophils/Leukocytes Auto (Bld) [Pure # fraction] 0.0 E9/L Normal 0.0-0.2 [facility] Comment on above: Performed By: #### 1 3574465, 7585232, 2741000 ####[address] [address] Eosinophils (Bld) [#/Vol] 0.2 E9/L Normal 0.0-0.5 [facility] Comment on above: Performed By: #### 1 0767314, 4805751, 6446422 ####[address] [address] Eosinophils/100 WBC (Bld) 3.9 % Normal 0.0-8.0 [facility] Comment on above: Performed By: #### 1 6908217, 3068880, 9042652 ####[address] [address] Erythrocyte distribution width (RBC) [Ratio] 14.0 % Normal 10.9-14.2 [facility] Comment on above: Performed By: #### 1 2426375, 3686530, 7875538 ####[address] [address] Hematocrit (Bld) [Volume fraction] 39.1 % Normal 37.7-49.0 [facility] Comment on above: Performed By: #### 1 1403688, 9819024, 3199953 ####[address] [address] Hemoglobin (Bld) [Mass/Vol] 13.0 g/dL Low 13.5-17.5 [facility] Comment on above: Performed By: #### 1 7115023, 1361818, 7688475 ####[address] [address] Lymphocytes (Bld) [#/Vol] 1.4 E9/L Normal 1.0-4.0 [facility] Comment on above: Performed By: #### 1 4554905, 5335325, 8413812 ####[address] [address] Lymphocytes/100 WBC (Bld) 31.0 % Normal 14.0-50.0 [facility] Comment on above: Performed By: #### 1 3632576, 7084570, 9827508 ####[address] [address] MCH (RBC) [Entitic mass] 30.3 pg Normal 27.0-34.0 [facility] Comment on above: Performed By: #### 1 3551892, 6787402, 2728161 ####[address] [address] MCHC (RBC) [Mass/Vol] 33.3 g/dL Normal 31.4-36.0 [facility] Comment on above: Performed By: #### 1 5737028, 8504707, 9948411 ####[address] [address] MCV (RBC) [Entitic vol] 91.2 fL Normal 80.0-100.0 [facility] Comment on above: Performed By: #### 1 8734190, 4615234, 3235769 ####[address] [address] Monocytes (Bld) [#/Vol] 0.4 E9/L Normal 0.2-1.0 [facility] Comment on above: Performed By: #### 1 8410853, 4016450, 2102933 ####[address] [address] Neutrophils (Bld) [#/Vol] 2.5 E9/L Normal 2.0-7.5 [facility] Comment on above: Performed By: #### 1 6547209, 6841836, 0204593 ####[address] [address] Neutrophils/100 WBC (Bld) 55.3 % Normal 36.0-75.0 [facility] Comment on above: Performed By: #### 1 5140545, 0915210, 3029551 ####[facility] [address] [place] [address] Platelet 157.0 E9/L Normal 150.0-500.0 [facility] Comment on above: Performed By: #### 1 6140558, 0026582, 6826853 ####[facility] [address] [place] [address] Platelet mean volume (Bld) [Entitic vol] 9.7 fL Normal 6.4-10.8 [facility] Comment on above: Performed By: #### 1 4792628, 4717688, 9876461 ####[address] [address] RBC (Bld) [#/Vol] 4.3 E12/L Normal 4.3-5.9 [facility] Comment on above: Performed By: #### 1 8825263, 3409531, 4234224 ####[facility] [address] [place] [address] WBC corrected for nucl RBC Auto (Bld) [#/Vol] 4.6 E9/L Normal 4.0-11.0 [facility] Comment on above: Performed By: #### 1 6701319, 6126804, 5209752 ####[address] [address] CHEMISTRYOrdered By: SYSTEM SYSTEM on 03-06-2024 Anion [...] for Treatmenton 02-13 Consent for Treatment [id number] B4#1.00TIFF Normal [facility] HEMATOLOGYOrdered By: SYSTEM SYSTEM on 03-06-2024 Basophils/100 [...] 03-06-2024 eGFR 75 mL/min/1.73 m2 Normal >=59 [facility] Comment on above: Order Comment: Order added by Discern Expert. Performed By: #### 1 2883484, 6302668, 2159335 ####[facility] [address] [place] [address] Consultation Noteon 03-01-20 Consultation Note [id number] 5E#1.00TIFF Normal [facility] Lab Reportson 02-27-2024 Lab Reports [id number] E7#1.00TIFF Normal [facility] Family Medicine Office/Clini c Noteon 02-07-2024 Family Medicine Office/Clinic Note HPI Staff Dariel is an 83 year old male presenting for 2 month follow up DM Needs refills of levothyroxine and glimiperide to [facility] Do you have any of the following symptoms? Foot Exam: none Eye Exam: due Last A1C: Hgb A1C %: 5.6 % (12/01/23 14:31:00) Statin: pravastatin 40mg questions/concerns: saw kidney specialist (Rashad) about 3 weeks ago ( no report in file) was told to stop the omeprazole and meloxicam and cut salt tablets from tid to bid. Also says [facility] sent him a letter and said you [...] his left side. 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 His omeprazole and meloxicam [...] cardiovascular disease) (I25.10: Atherosclerotic heart disease of [place] coronary artery without angina pectoris) He has [...] with voice recognition artificial intelligence software, specifically [employer], [employer] and or [employer]. Substitutions may have occurred due to the inherent limitations of voice recognition and artificial intelligence software. ATTESTATION: Documentation services were performed after patient or guardian consented to allow eziCONEX to record this visit. MELISSA early breastfeeding care specialist and provider reviewed before signing. MELISSA: [...] in life (more content not included)... Normal [facility] Comment on above: Result Comment: [...] Appointments Tuesday 9:00 AM EDT With: Where: [facility] Invalid Interpretation Code [address] [place] [address]- \.br\ 2023 9:00 AM EDT \.br\ With: Adam COHN, Kylah Cole\.br\ Where: [facility] Physician Referralon 024 Physician Referral [id number] 6#1.00TIFF [facility] Lab Reportson 01-05-2024 Lab Reports [id number] C1#1.00TIFF [facility] Transfer Inon 12-08-2023 Transfer In [id number] F9#1.00TIFF [facility] Auth for Release of Medical Recordson 12-06-2023 Auth for Release of Medical Records [id number] E#1.00TIFF [facility] Family Medicine Office/Clini c Noteon 12-02-2023 [...] date and never got results flu: UTD 10/6/23 Acute: would like a refil of meloxicam 90 day refill Current issues/complaints: will be getting his PT/INR tomorrow and will you follow his warfarin for him? uses triamcinolone acetonide 0.1% 2 times a day History of Present Illness Dariel Zabala is an 83-year-old male who presents today to [facility]. He is accompanied by his . [...] records from Dr. Jada Rene. Prior to correction, he worked at a [employer] for 4 days a week. 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 He and his family relocated from [place] to [place] 7 months ago, but they originally grew up in [place]. Review of Systems PHQ Score Initial Depression [...] cardiovascular disease) (I25.10: Atherosclerotic heart disease of [place] coronary artery without angina pectoris) He will [...] with voice recognition artificial intelligence software, specifically [employer], [employer] and or [employer]. Substitutions may have occurred due to the inherent limitations of voice recognition and artificial intelligence software. Documentation services were performed after patient or guardian consented to allow eziCONEX to record this visit. MELISSA early breastfeeding care specialist and provider reviewed before signing. MELISSA: [...] Oral, Horace (more content not included)... Normal [facility] Comment on above: Result Comment: Elec tronically Signed By: Kylah Garcia MD\.br\Date and Time Signed: 12/02/23 08:22 EST\.br\Electronically Co-Signed By: Allie Conway\.br\Date and Time Co-Signed: 12/01/23 17:49 EST Lab Reportson 12-02-2023 Lab Reports [id number] 1#1.00TIFF [facility] Ambulatory Visit Summaryon 0 12-01-2023 Ambulatory [...] for choosing us for your care. Normal [facility] CBC w/ Auto Diffon 4 NRBC Man 0 Normal 0-0 [facility] Comment on above: Performed By: #### 2 212306, 7364101, 21773253, 5908550, 157071431 #### [facility] Laboratory [address] [place] [address] Basophil Absolute 0.0 E9/L Normal 0.0-0.2 [facility] Comment on above: Performed By: #### 2 040653, 5154806, 94264230, 9268546, 624480246 #### [facility] Laboratory [address] [place] [address] Basophils/100 WBC (Bld) 0.4 % Normal 0.0-2.0 [facility] Comment on above: Performed By: #### 2 935712, 6130659, 62331389, 2357434, 433773376 #### [facility] Laboratory [address] [place] [address] Eos Absolute 0.2 E9/L Normal 0.0-0.5 [facility] Comment on above: Performed By: #### 2 686238, 9161670, 80821527, 9066019, 531406520 #### [facility] Laboratory [address] [place], [place] [address] Eosinophils/100 WBC (Bld) 2.9 % Normal 0.0-8.0 [facility] Comment on above: Performed By: #### 2 839420, 0079331, 55431897, 3129053, 802841312 #### [facility] Laboratory [address] [place], [place] [address] Erythrocyte distribution width (RBC) [Ratio] 14.0 % Normal 10.9-14.2 [facility] Comment on above: Performed By: #### 2 616052, 6017729, 44358153, 4759948, 701902221 #### [facility] Laboratory [address] [place], [place] [address] Hematocrit (Bld) [Volume fraction] 37.0 % Low 37.7-49.0 [facility] Comment on above: Performed By: #### 2 371792, 8688399, 91757110, 4770417, 113324668 #### [facility] Laboratory [address] [place] [address] Hemoglobin (Bld) [Mass/Vol] 12.1 g/dL Low 13.5-17.5 [facility] Comment on above: Performed By: #### 2 622508, 2875690, 37206240, 5595393, 479760789 #### [facility] Laboratory [address] [place] [address] Lymph Absolute 1.8 E9/L Normal 1.0-4.0 [facility] Comment on above: Performed By: #### 2 694004, 7464982, 88523106, 4174467, 522754132 #### [facility] Laboratory [address] [place] [address] Lymphocytes/100 WBC (Bld) 29.3 % Normal 14.0-50.0 [facility] Comment on above: Performed By: #### 2 230226, 2043637, 90514497, 8156957, 282752748 #### [facility] Laboratory [address] [place], [place] [address] MCH (RBC) [Entitic mass] 30.8 pg Normal 27.0-34.0 [facility] Comment on above: Performed By: #### 2 729767, 3789135, 85849130, 3639962, 542004743 #### [facility] Laboratory [address] [place], [place] [address] MCHC (RBC) [Mass/Vol] 32.8 g/dL Normal 31.4-36.0 [facility] Comment on above: Performed By: #### 2 178342, 4980584, 54427778, 3347959, 367286002 #### [facility] Laboratory [address] [place] [address] MCV (RBC) [Entitic vol] 93.8 fL Normal 80.0-100.0 [facility] Comment on above: Performed By: #### 2 942455, 2107926, 26251517, 0641824, 656993050 #### [facility] Laboratory [address] [place] [address] Gordon Absolute 0.5 E9/L Normal 0.2-1.0 [facility] Comment on above: Performed By: #### 2 985337, 9111519, 32516907, 8919852, 199983837 #### [facility] Laboratory [address] [place], [place] [address] Monocytes/100 WBC (Bld) 7.9 % Normal 4.0-14.0 [facility] Comment on above: Performed By: #### 2 545954, 3907104, 63392936, 1748160, 361418885 #### [facility] Laboratory [address] [place] [address] Neutro Absolute 3.6 E9/L Normal 2.0-7.5 [facility] Comment on above: Performed By: #### 2 755323, 3184405, 93527384, 5743646, 499940760 #### [facility] Laboratory [address] [place] [address] Neutro Auto 59.5 % Normal 36.0-75.0 [facility] Comment on above: Performed By: #### 2 771726, 3703366, 57055061, 4511730, 230868765 #### [facility] Laboratory [address] [place] [address] Platelet 198.0 E9/L Normal 150.0-500.0 [facility] Comment on above: Performed By: #### 2 989653, 5493558, 31640181, 6015236, 898105325 #### [facility] Laboratory [address] [place] [address] Platelet mean volume (Bld) [Entitic vol] 9.5 fL Normal 6.4-10.8 [facility] Comment on above: Performed By: #### 2 844230, 6500356, 06473861, 7106627, 110083161 #### [facility] Laboratory [address] [place] [address] RBC 3.9 E12/L Low 4.3-5.9 [facility] Comment on above: Performed By: #### 2 031253, 1317172, 75435863, 1510424, 287895110 #### [facility] Laboratory [address] [place] [address] WBC 6.0 E9/L Normal 4.0-11.0 [facility] Comment on above: Performed By: #### 2 076549, 4103348, 98787099, 8994131, 697201226 #### [facility] Laboratory [address] [place] [address] CHEMISTRYOrdered By: Kate Sotomayor on 12-01-2023 U [...] (Bld) [Mass fraction] 5.6 % Normal <=5.9% [facility] ChemAutoSS CMPon 12-01-2023 Albumin [Mass/Vol] 3.9 g/dL Normal 3.3-5.0 [facility] Comment on above: Performed By: #### 2 493841, 6482124, 96917822, 1084242, 493941820 #### [facility] Laboratory [address] [place] [address] Albumin/Globulin [Mass ratio] 1.6 {ratio} Normal 1.1-2.2 [facility] Comment on above: Performed By: #### 2 528257, 6528680, 01632362, 8235051, 368884474 #### [facility] Laboratory [address] [place] [address] Alk Phos 75 Int._Unit/L Normal 21-98 [facility] Comment on above: Performed By: #### 2 075603, 4486603, 06495441, 2056283, 945686684 #### [facility] Laboratory [address] [place] [address] ALT 12 Int._Unit/L Normal 6-46 [facility] Comment on above: Performed By: #### 2 517019, 3903287, [id number], [id number], [id number] #### [facility] [address] [place] [address] Anion gap [Moles/Vol] 9 mmol/L Normal 6-16 [facility] Comment on above: Performed By: #### 2 961681, 5725663, 98050255, 7657325, [id number] #### [facility] [address] [place] [address] AST 20 Int._Unit/L Normal 5-43 [facility] Comment on above: Performed By: #### 2 310036, 1685533, 94142750, 3323824, [id number] #### [facility] [address] [id number] Bili Total 0.9 mg/dL Normal 0.0-1.1 [facility] Comment on above: Performed By: #### 2 437326, 8829766, 52589185, 4447278, [id number] #### [facility] [address] [place] [address] BUN/Creat Ratio 10 No Units Normal 10-20 [facility] Comment on above: Performed By: #### 2 358652, 2421369, 49582247, 7159672, [id number] #### [facility] [address] [place] [address] Calcium [Mass/Vol] 8.7 mg/dL Low 8.9-11.1 [facility] Comment on above: Performed By: #### 2 656998, 8756225, 18011374, 2662554, [id number] #### [facility] [address] [place] [address] Chloride [Moles/Vol] 104 mmol/L Normal 101-111 [facility] Comment on above: Performed By: #### 2 005391, 7066394, 49827809, 6542505, [id number] #### [facility] [address] [place] [address] CO2 [Moles/Vol] 30 mmol/L Normal 21-31 [facility] Comment on above: Performed By: #### 2 937181, 8275631, 93019914, 6762210, 727073316 #### [facility] [address] [place] [address] Creatinine [Mass/Vol] 1.1 mg/dL Normal 0.5-1.3 [facility] Comment on above: Performed By: #### 2 713100, 2556681, 21886707, 6938877, 489686841 #### [facility] [address] [place] [address] Globulin (S) [Mass/Vol] 2.5 g/dL Normal 1.4-4.0 [facility] Comment on above: Performed By: #### 2 744788, 8104720, 07632831, 5544590, [id number] #### [facility] [address] [place] [address] Glucose [Mass/Vol] 72 mg/dL Normal 55-199 [facility] Comment on above: Performed By: #### 2 842599, 1625703, 09596910, 4080880, 550461964 #### [facility] [address] [place] [address] Potassium [Moles/Vol] 4.2 mmol/L Normal 3.5-5.3 [facility] Comment on above: Performed By: #### 2 840790, 8065939, 70098902, 3941941, 956559584 #### [facility] [address] [place] [address] Protein [Mass/Vol] 6.4 g/dL Normal 6.0-7.8 [facility] Comment on above: Performed By: #### 2 043573, 3298907, 74181911, 7542480, [id number] #### [facility] [address] [place] [address] Sodium [Moles/Vol] 139 mmol/L Normal 135-145 [facility] Comment on above: Performed By: #### 2 244445, 1387663, 57668993, 0188664, 047707648 #### [facility] [address] [place] [address] Urea nitrogen [Mass/Vol] 11 mg/dL Normal 5-21 [facility] Comment on above: Performed By: #### 2 318830, 5679235, 79476252, 0368280, 103410850 #### [facility] [address] [place] [address] HEMATOLOGYOrdered By: SYSTEM SYSTEM on 12-01-2023 Basophil [...] Normal 80.0 - 100.0 fL Remisol Heme Gordon Absolute 0.5 E9/L Normal 0.2 - 1.0 [...] 1 Normal 0 - 0 Remisol Heme [id number] 12-01-2023 HbA1c (Bld) [Mass fraction] 5.6 % Normal <=5.9 [facility] Comment on above: Performed By: #### 2 308842, 7583427, 66152767, 9773197, 682852525 ####[facility] [address] [place] [address] Lipid Panelon 12-01-2023 Cholesterol [Mass/Vol] 156 mg/dL Normal 120-200 [facility] Comment on above: Performed By: #### 2 291411, 2085915, 97509905, 8547412, 401727354 #### [facility] [address] [place] [address] Cholesterol in HDL [Mass/Vol] 51 mg/dL Invalid Interpretation Code [facility] Comment on above: Result Comment: '>= 60 LOW RISK' '<= 40 HIGH RISK' Performed By: #### 2 215913, 5670496, 30426053, 4773796, 606440591 #### [facility] [address] [place] [address] Cholesterol in LDL [Mass/Vol] 89 mg/dL Normal <=129 [facility] Comment on above: Performed By: #### 2 405796, 7199287, 25256938, 0785684, 240346315 #### [facility] [address] [place] [address] Cholesterol in VLDL [Mass/Vol] 18 mg/dL Normal 7-40 [facility] Comment on above: Performed By: #### 2 797492, 1619551, 95365578, 1095942, 573269053 #### [facility] [address] [place] [address] Triglyceride [Mass/Vol] 92 mg/dL Normal <=149 [facility] Comment on above: Performed By: #### 2 079525, 3125523, 60862694, 4273661, 078829187 #### [facility] [address] [place] [address] U Microalbon 12-01-2023 U Microalb <2.0 Normal 0.0-19.0 [facility] Comment on above: Performed By: #### 1 [id number], 97372070 ####[facility] [address] [place] [address] U Protein/Creat Ratioon 11-14 U Creatinine 62.5 mg/dL Invalid Interpretation Code [facility] Comment on above: Performed By: #### 1 [id number], 26632023 ####[facility] [address] [place] [address] U Prot/Creat Ratio NOT CALCULATED Invalid Interpretation Code .00-200.00 [facility] Comment on above: Performed By: #### 1 [id number], 85597131 ####[facility] [address] [place] [address] Ur Total Protein <6.0 Invalid Interpretation Code [facility] Comment on above: Performed By: #### 1 [id number], 69126928 ####[facility] [address] [facility] [place] [address] eGFRon 12-01-2023 eGFR 67 mL/min/1.73 m2 Normal >=59 [facility] Comment on above: Order Comment: Order added by Discern Expert. Performed By: #### 2 281672, 3367394, 85254956, 7763529, 045273931 #### [facility] [address] [place] [address] Basic Metabolic Panelon 10-15 Anion gap [Moles/Vol] 8.1 mmol/L Normal 6.0-15.[address] [facility] Comment on above: Order Comment: Reaso n for Exam Hyponatremia Performed By: #### C CECILIA, BMP #### [facility] [address] Calcium [Mass/Vol] 9.3 mg/dL Normal 8.6-10.3 [facility] Comment on above: Order Comment: Reaso n for Exam Hyponatremia Result Comment: PERF ORMED BY: [place] [address] PATHOLOGIST INTERVENTIONAL PHYSICIAN DANNY NEAL M.D. Performed By: #### C CECILIA, BMP #### [facility] [address] Chloride [Moles/Vol] 102 mmol/L Normal 98-107 [facility] Other Comment on above: Order Comment: Reaso n for Exam Hyponatremia Performed By: #### C CECILIA, BMP #### [facility] [address] [place] [id number] [place] CO2 [Moles/Vol] 32.4 mmol/L High 21.0-31.0 [facility] Comment on above: Order Comment: Reaso n for Exam Hyponatremia Performed By: #### C BC, BMP #### [facility] [address] [place] [address] [place] Creatinine [Mass/Vol] 1.07 mg/dL Normal 0.70-1.[address] [facility] Comment on above: Order Comment: Reaso n for Exam Hyponatremia Performed By: #### C BC, BMP #### [facility] [address] [id number] [place] GFR/1.73 sq M.predicted MDRD (S/P/Bld) [Vol rate/Area] mL/min/{1.73_m2} Normal [facility] [employer] Other Comment on above: Order Comment: Reaso n for Exam Hyponatremia Performed By: #### C BC, BMP #### [facility] [address] [id number] [facility] Glucose [Mass/Vol] 93 mg/dL Normal 70-100 [facility] Other Comment on above: Order Comment: Reaso n for Exam Hyponatremia Result Comment: [facility] Glucose Reference Range is dependent on time and content of last meal. Glucose of more than 200 mg/dL in a nonstressed, ambulatory subject supports the diagnosis of Diabetes Mellitus. ADA recommended reference range Performed By: #### C BC, BMP #### [facility] [address] [place] [address] Potassium [Moles/Vol] 4.5 mmol/L Normal 3.5-5.[address] [facility] Comment on above: Order Comment: Reaso n for Exam Hyponatremia Performed By: #### C BC, BMP #### [place] [id number] [place] Sodium [Moles/Vol] 138 mmol/L Normal 136-145 [employer] [facility] [email or web address] Other Comment on above: Order Comment: Reaso n for Exam Hyponatremia Performed By: #### C BC, BMP #### [facility] [address] [place] [address] [place] Urea nitrogen [Mass/Vol] 13 mg/dL Normal 7-25 [facility] [employer] Other Comment on above: Order Comment: Reaso n for Exam Hyponatremia Performed By: #### C BC, BMP #### [facility] [address] [place] [address] [place] Calcium [Mass/Vol] 9.0444992 mg/dL Normal 8.6-10.3 mg/ dL [facility] [employer] Other CO2 [Moles/Vol] 32.38183530 mmol/L High 21.0-31.0 mm ol/L [facility] [employer] Other Creatinine [Mass/Vol] 1.59026627 mg/dL Normal 0.70-1.30 mg/dL [facility] [email or web address] Application Other Potassium [Moles/Vol] 4.10843045 mmol/L Normal 3.5-5.1 mmol/L [facility] [email or web address] [facility] Other Complete Blood Count Auto Di ffon 11-02-2023 Basophils (Bld) [#/Vol] 0.1 10*3/uL Normal 0.0-0.[address] [facility] Comment on above: Order Comment: Reaso n for Exam Atrial fibrillation Result Comment: PERF ORMED BY: [place] [address] PATHOLOGIST INTERVENTIONAL PHYSICIAN DANNY NEAL M.D. Performed By: #### C BC, BMP #### [facility] [address] [place] [address] Basophils/100 WBC (Bld) 1.0 % Normal . [facility] Comment on above: Order Comment: Reaso n for Exam Atrial fibrillation Performed By: #### C BC, BMP #### [facility] [address] [place] [address] Eosinophils (Bld) [#/Vol] 0.1 10*3/uL Normal 0.0-0.[address] [facility] Comment on above: Order Comment: Reaso n for Exam Atrial fibrillation Performed By: #### C BC, BMP #### [facility] [address] [place] [address] Eosinophils/100 WBC (Bld) 2.1 % Normal . [facility] Comment on above: Order Comment: Reaso n for Exam Atrial fibrillation Performed By: #### C BC, BMP #### [facility] [address] [place] [address] Erythrocyte distribution width (RBC) [Ratio] 14.0 % Normal 12.0-14.[address] [facility] Comment on above: Order Comment: Reaso n for Exam Atrial fibrillation Performed By: #### C BC, BMP #### [facility] [address] [place] [address] Hematocrit (Bld) [Volume fraction] 38.8 % Normal 38.8-50.[address] [facility] Comment on above: Order Comment: Reaso n for Exam Atrial fibrillation Performed By: #### C BC, BMP #### [address] Hemoglobin (Bld) [Mass/Vol] 13.2 g/dL Normal 13.0-17.[address] [facility] Comment on above: Order Comment: Reaso n for Exam Atrial fibrillation Performed By: #### C BC, BMP #### [address] Lymphocytes (Bld) [#/Vol] 1.3 10*3/uL Normal 1.00-4.[address] [facility] Comment on above: Order Comment: Reaso n for Exam Atrial fibrillation Performed By: #### C BC, BMP #### [address] Lymphocytes/100 WBC (Bld) 21.8 % Normal . [facility] Comment on above: Order Comment: Reaso n for Exam Atrial fibrillation Performed By: #### C BC, BMP #### [address] MCH (RBC) [Entitic mass] 31.5 pg Normal 27.5-35.[address] [facility] Comment on above: Order Comment: Reaso n for Exam Atrial fibrillation Performed By: #### C BC, BMP #### [address] MCV (RBC) [Entitic vol] 92.7 fL Normal 83.5-[address] [facility] Comment on above: Order Comment: Reaso n for Exam Atrial fibrillation Performed By: #### C BC, BMP #### [address] Mean Corpuscular HGB Conc 34.0 g/dL Normal 32.5-35.[address] [facility] Comment on above: Order Comment: Reaso n for Exam Atrial fibrillation Performed By: #### C BC, BMP #### [address] Monocytes (Bld) [#/Vol] 0.5 10*3/uL Normal 0.0-0.[address] [facility] Comment on above: Order Comment: Reaso n for Exam Atrial fibrillation Performed By: #### C BC, BMP #### [facility] [address] [place] [address] [place] Monocytes/100 WBC (Bld) 8.5 % Normal . [facility] Comment on above: Order Comment: Reaso n for Exam Atrial fibrillation Performed By: #### C BC, BMP #### [facility] [address] [place] [address] [place] Neutrophils (Bld) [#/Vol] 4.0 10*3/uL Normal 1.8-7.[address] [facility] Comment on above: Order Comment: Reaso n for Exam Atrial fibrillation Performed By: #### C BC, BMP #### [facility] [address] [place] [address] [place] Neutrophils/100 WBC (Bld) 66.6 % Normal . [facility] Comment on above: Order Comment: Reaso n for Exam Atrial fibrillation Performed By: #### C BC, BMP #### [facility] [address] [place] [address] [place] NRBC% 0.1 /100{WBC} Normal 0-0.[address] [facility] Comment on above: Order Comment: Reaso n for Exam Atrial fibrillation Performed By: #### C BC, BMP #### [facility] [address] [place] [address] [place] Platelet mean volume (Bld) [Entitic vol] 9.4 fL Normal 6.6-10.[address] [facility] Comment on above: Order Comment: Reaso n for Exam Atrial fibrillation Performed By: #### C BC, BMP #### [facility] [address] [place] [address] [place] Platelets (Bld) [#/Vol] 153 10*3/uL Normal 150-450 [facility] [employer] Other Comment on above: Order Comment: Reaso n for Exam Atrial fibrillation Performed By: #### C BC, BMP #### [facility] [address] RBC (Bld) [#/Vol] 4.19 10*6/uL Normal 3.90-5.60 [facility] [employer] Other Comment on above: Order Comment: Reaso n for Exam Atrial fibrillation Performed By: #### C BC, BMP #### [facility] [address] [place] [address] [facility] WBC (Bld) [#/Vol] 6.1 10*3/uL Normal 4.1-10.5 [facility] Comment on above: Order Comment: Reaso n for Exam Atrial fibrillation Performed By: #### C BC, BMP #### [facility] [address] [id number] [facility] Basophils (Bld) [#/Vol] 0.696794900 10*3/uL Normal 0.0-0.2 10*3/uL [facility] [employer] Other Basophils/100 WBC (Bld) 1.000 % . % [facility] [employer] Other Eosinophils (Bld) [#/Vol] 0.011298635 10*3/uL Normal 0.0-0.45 10*3/uL [facility] [employer] Other Eosinophils/100 WBC (Bld) 2.100 % . % [facility] [employer] Other Erythrocyte distribution width (RBC) [Ratio] 14.000 % Normal 12.0-14.8 % [facility] [employer] Other Hematocrit (Bld) [Volume fraction] 38.800 % Normal 38.8-50.0 % [facility] [employer] Other Hemoglobin (Bld) [Mass/Vol] 13.529694 g/dL Normal 13.0-17.0 g/dL [facility] [employer] Other Lymphocytes (Bld) [#/Vol] 1.599158954 10*3/uL Normal 1.00-4.8 10*3/uL [facility] [employer] Other Lymphocytes/100 WBC (Bld) 21.800 % . % [facility] [employer] Other MCH (RBC) [Entitic mass] 31.5000 pg Normal 27.5-35.2 pg [employer] Other MCV (RBC) [Entitic vol] 92.7000 fL Normal 83.5-101 fL [facility] [employer] Other Monocytes (Bld) [#/Vol] 0.071659621 10*3/uL Normal 0.0-0.8 10*3/uL [facility] Other Monocytes/100 WBC (Bld) 8.500 % . % [facility] [employer] Other Neutrophils (Bld) [#/Vol] 4.336097015 10*3/uL Normal 1.8-7.7 10*3/uL [facility] Other Neutrophils/100 WBC (Bld) 66.600 % . % [facility] [employer] Other Platelet mean volume (Bld) [Entitic vol] 9.4000 fL Normal 6.6-10.1 fL [facility] [employer] Other WBC (Bld) [#/Vol] 6.241513772 10*3/uL Normal 4.1-10.5 10*3/uL [facility] Other Complete Blood Count Auto Diff 6.1 10*3/uL Normal 4.1-10.5 10*3/uL [facility] [employer] Other Complete Blood Count Auto Diff 34.0 g/dL Normal 32.5-35.6 g/dL [facility] [employer] Other Complete Blood Count Auto Diff 0.1 /100{WBC} Normal 0-0.5 /100{WBC} [facility] [employer] Other PSA Screen (Yearly Only)on 01-03-2023 PSA Screen (Yearly Only) 1.940 ng/mL Normal 0.000-4.000 [facility] Comment on above: Order Comment: Reaso n for Exam Prostate cancer screening Result Comment: Seri al tumor marker results determined by assays using different manufacturers or methods may not be comparable. [facility] Laboratory softball winder and method: [employer] DXI, CHEMILUMINESCENT IMMUNOASSAY. PERFORMED BY: [address] [place] [address] PATHOLOGIST INTERVENTIONAL PHYSICIAN DANNY NEAL M.D. Performed By: #### P SAS #### [facility] [address] [place], [place] [id number] [facility] Prothrombin Time INRon 06-16 INR Coag (PPP) [Relative time] 2.4 {INR} Normal [facility] [employer] Other Comment on above: Result Comment: INR [...] heart valves: 3 - 4.5 PERFORMED BY: [address] [place] [address] PATHOLOGIST INTERVENTIONAL PHYSICIAN DANNY NEAL M.D. Performed By: #### P T #### [facility] [address] [place] [address] [facility] PT Coag (PPP) [Time] 27.8 s High 9.0-12.9 [facility] Comment on above: Performed By: #### P T #### [facility] [address] [place] [address] [facility] PT Coag (PPP) [Time] 27.800 s High 9.0-12.9 s [place] Other Coding Summaryon 05-12-2020 Coding Summary CODING DATE: 05/12/2020 [facility] STATUS: Home PAYOR: Medicare MC ADMIT DX: [...] Horan Date Saved: 05/12/2020 02:18 pm Normal [facility] ED Clinical Summaryon 2019 ED Clinical Summary [facility] ? Urgent Care [address] [place] [address] [id number] Clinical Summary PERSON INFORMATION Name: DARIEL ZABALA Age: 80 Years Sex: MALE : 1940 MRN: Acct#: Visit Reason: UC - Ear Problem; BILAT EAR PROBLEM Arrival: 05/08/2020 09:32:00 Discharge: 05/08/2020 10:15:00 LOS: 000 00:43 Check In: 05/08/2020 09:32:00 Checkout: 05/08/2020 10:15:00 Address: [address] [place] [address] PCP: Provider, Unlisted PROVIDER INFORMATION Provider Role Assigned Unassigned Larry Billingsley PA-C ED PA 05/08/2020 09:36:31 Ramona Chiang RN ED Nurse 05/08/2020 09:36:55 VITALS INFORMATION Vital Sign Triage Latest Temperature Tympanic Temperature Temporal Artery Pulse Rate O2 Sat 96 % 96 % Respiratory Rate Blood Pressure /79 mmHg /79 mmHg MEDICAL INFORMATION Medications Given: Allergy Information: No known allergies PHYSICIAN DOCUMENTATION DISCHARGE INFORMATION: Discharge Disposition: Home Discharge Location: Home PATIENT EDUCATION INFORMATION Instructions: Earwax Buildup, Adult Follow-Up: With: Address: When: Andrés Arellano [facility], [address] [place] [address] Business (1) Comments: Please follow-up with your Doctor or Dr. Arellano, Medical Doctor gas station manager, call their offices and make ointment to be seen in 3 days or sooner for continued care, please purchase ncug-ahz-aabgezn Debrox which helps breakdown earwax, take all your medications as previously prescribed, drink plenty of water for hydration, and return back to urgent care center for any worsening symptoms, concerns, or complications. DIAGNOSIS: 1:Impacted cerumen of both ears Patient Understands: Yes - Patient/family/health care administrator verbalizes understanding of instructions given Comment: Normal [facility] ED Patient Summaryon 020 ED Patient Summary [facility] ? Urgent Care [address] [place] [address] [id number] PATIENT DISCHARGE INSTRUCTIONS Patient Information Name: DARIEL ZABALA Age: 80 Years Date of : 1940 Reason For Visit: UC - Ear Problem; BILAT EAR PROBLEM Arrival Time: 05/08/2020 09:32:00 Primary Care Physician: Provider, Unlisted Attending Physician: Larry Billingsley PA-C Comment: Patient Education With: Address: When: Andrés [facility], [address] [place] [address] Business (1) Comments: Please follow-up with your Doctor or Dr. Arellano, Medical Doctor gas station manager, call their offices and make ointment to be seen in 3 days or sooner for continued care, please purchase exlc-cnt-goaxpyk Debrox which helps breakdown earwax, take all [...] Follow these instructions at home: ? Take dztf-vfu-dqnkqtt and prescription medicines only as told by [...] clean them according to instructions from the softball winder and your health care provider. Contact a [...] 12/08/2005 Document Revised: 10/12/2018 Document Reviewed: 01/11/2018 [employer] Patient Education ? 2019 [employer]. Medication Information: The exam and treatment you received today in the [facility] Emergency Department were for an urgent problem and are not intended as complete care. It is important for you to follow up with a doctor, nurse practitioner, or physician?s team assistant for ongoing care. If your symptoms [...] so we can reach you if necessary. [facility] Emergency Department has provided you with a complete list of medications post discharge. Please inform your chief operator/provider of your visit and for further instruction [...] both ears (H61.23) UC - Ear Problem ([id number]) If you received any narcotics, sedation, or [...] for Disease Control and Prevention July 2014 [facility] Patient Handouton 05-08-2020 Patient Handout [...] Follow these instructions at home: ? Take fsec-esw-ynzbywy and prescription medicines only as told by [...] clean them according to instructions from the softball winder and your health care provider. Contact a [...] 12/08/2005 Document Revised: 10/12/2018 Document Reviewed: 01/11/2018 [employer] Interactive Patient Education ? 2019 [employer] Normal [facility] Urgent Care [place] 020 Urgent Care Record [facility] ? Urgent Care [address] [id number] PATIENT DISCHARGE INSTRUCTIONS Patient Information Name: DARIEL ZABALA Age: 80 Years Date of : 1940 Reason For Visit: UC - Ear Problem; BILAT EAR PROBLEM Arrival Time: 05/08/2020 09:32:00 Primary Care Physician: Provider, Unlisted Attending Physician: Larry Billingsley PA-C Comment: Visit Diagnosis: Diagnoses This Visit Impacted cerumen of both ears (H61.23) UC - Ear Problem ([id number] -[id number]) If you received any narcotics, sedation, or [...] legal documents With: Address: When: Andrés Arellano [facility], [address] [place] [address] Business (1) Comments: Please follow-up with your Doctor or Dr. Arellano, Medical Doctor gas station manager, call their offices and make ointment to be seen in 3 days or sooner for continued care, please purchase oike-hww-xiosocz Debrox which helps breakdown earwax, take all your medications as previously prescribed, drink plenty of water for hydration, and return back to urgent care center for any worsening symptoms, concerns, or complications. Medication Information: The exam and treatment you received today in the [facility] were for an urgent problem and are not intended as complete care. It is important for you to follow up with a doctor, nurse practitioner, or physician?s team assistant for ongoing care. If your symptoms [...] so we can reach you if necessary. [facility] has provided you with a complete list of medications post discharge. Please inform your chief operator/provider of your visit and for further instruction [...] Follow these instructions at home: ? Take incn-izw-sgutesx and prescription medicines only as told by [...] clean them according to instructions from the softball winder and your health care provider. Contact a [...] 12/08/2005 Document Revised: 10/12/2018 Document Reviewed: 01/11/2018 [employer] Patient Education ? 2019 [employer]. Viruses or Bacteria What?s got you sick? [...] for Disease Control and Prevention July 2014 [facility] Vital Signs Date Time Vital Sign Value Performing Clinician Facility 08-28-2024 14:47-0400 Blood Pressure Location Davie Vargas [facility] [place] 08-28-2024 14:47-0400 Diastolic blood pressure 75 mm[Hg] Davie Vargas [facility] [place] 08-28-2024 14:47-0400 Heart rate 65 /min Davie Vargas [facility] [place] 08-28-2024 14:47-0400 Respiratory rate 16 /min Davie Vargas [facility] [place] 08-28-2024 14:47-0400 Systolic blood pressure 119 mm[Hg] Davie Vargas [facility] [place] 06-11-2024 12:48-0400 Diastolic blood pressure 78 mm[Hg] Kashif Kirnus [facility] 06-11-2024 12:48-0400 Heart rate 70 /min Kashif Kirnus [facility] 06-11-2024 12:48-0400 Respiratory rate 18 /min Kashif Kirnus [facility] 06-11-2024 12:48-0400 SaO2% (BldA) [Mass fraction] 97 % Kashif Kirnus [facility] 06-11-2024 12:48-0400 Systolic blood pressure 138 mm[Hg] Kashif Kirnus [facility] 05-30-2024 13:31-0400 Blood Pressure Location Dixon Dubose [facility] 05-30-2024 13:31-0400 Diastolic blood pressure 70 mm[Hg] Dixon Dubose [facility] 05-30-2024 13:31-0400 Heart rate 75 /min Dixon Dubose [facility] 05-30-2024 13:31-0400 Respiratory rate 18 /min Dixon Dubose [facility] 05-30-2024 13:31-0400 SaO2% (BldA) [Mass fraction] 95 % Dixon Dubose [facility] 05-30-2024 13:31-0400 Systolic blood pressure 130 mm[Hg] Dixon Dubose [facility] 04-20-2024 13:17-0400 Diastolic blood pressure 78 mm[Hg] Kashif Barnett [facility] 04-20-2024 13:17-0400 Heart rate 62 /min Kashif Costanus [facility] 04-20-2024 13:17-0400 SaO2% (BldA) [Mass fraction] 97 % Kashif Costan [facility] 04-20-2024 13:17-0400 Systolic blood pressure 138 mm[Hg] Kashif Costan [facility] 03-26-2024 14:30-0400 Diastolic blood pressure 64 mm[Hg] Axel Hernández [facility] 03-26-2024 14:30-0400 Heart rate 50 /min Axel Hernández [facility] 03-26-2024 14:30-0400 Respiratory rate 16 /min Axel Hernández [facility] 03-26-2024 14:30-0400 SaO2% (BldA) [Mass fraction] 98 % Axel Hernández [facility] 03-26-2024 14:30-0400 Systolic blood pressure 128 mm[Hg] Axel Hernández [facility] 03-26-2024 13:31-0400 Heart rate 54 /min Axel Hernández [facility] 03-26-2024 13:31-0400 SaO2% (BldA) [Mass fraction] 97 % Axel Hernández [facility] 03-26-2024 13:31-0400 Respiratory rate 16 /min Axel Hernández [facility] 03-26-2024 13:30-0400 Body temperature 97.34 [degF] Axel Edgar [facility] 03-26-2024 13:29-0400 Blood Pressure Location Axel Hernández [facility] 03-26-2024 13:29-0400 Diastolic blood pressure 70 mm[Hg] Axel Edgar [facility] 03-26-2024 13:29-0400 Mean blood pressure 88 mm[Hg] Axel Edgar [facility] 03-26-2024 13:29-0400 Systolic blood pressure 125 mm[Hg] Axel Edgar [facility] 03-26-2024 13:20-0400 Body temperature 97.52 [degF] Axel Edgar [facility] 03-26-2024 13:20-0400 Diastolic blood pressure 63 mm[Hg] Axel Edgar [facility] 03-26-2024 13:20-0400 Heart rate 54 /min Axel Edgar [facility] 03-26-2024 13:20-0400 Mean blood pressure 77 mm[Hg] Axel Edgar [facility] 03-26-2024 13:20-0400 Respiratory rate 15 /min Axel Edgar [facility] 03-26-2024 13:20-0400 SaO2% (BldA) [Mass fraction] 97 % Axel Edgar [facility] 03-26-2024 13:20-0400 Systolic blood pressure 104 mm[Hg] Axel Hernández [facility] 03-26-2024 13:15-0400 Mean blood pressure 73 mm[Hg] Axel Hernández [facility] 03-26-2024 13:15-0400 Respiratory rate 15 /min Axel Edgar [facility] 03-26-2024 13:10-0400 Mean blood pressure 72 mm[Hg] Axel Edgar [facility] 03-26-2024 13:10-0400 Respiratory rate 11 /min Axel Edgar [facility] 03-26-2024 12:55-0400 Body temperature 97.52 [degF] Axel Edgar [facility] 03-26-2024 12:50-0400 Respiratory rate 1 /min Axel Edgar [facility] 03-26-2024 09:36-0400 Blood Pressure Location Axel Edgar [facility] 03-26-2024 09:36-0400 Mean blood pressure 112 mm[Hg] Axel dEgar [facility] 03-26-2024 09:34-0400 Mean blood pressure 97 mm[Hg] Axel Edgar [facility] 03-26-2024 09:34-0400 Body temperature 97.34 [degF] Axel Edgar [facility] 03-26-2024 09:34-0400 Blood Pressure Location Axel Edgar [facility] 03-26-2024 09:34-0400 Heart rate 50 /min Axel Edgar [facility] 03-06-2024 08:11-0400 Blood Pressure Location Axel Edgar [facility] 03-06-2024 08:11-0400 Diastolic blood pressure 74 mm[Hg] Axel Edgar [facility] 03-06-2024 08:11-0400 Heart rate 56 /min Axel Hernández [facility] 03-06-2024 08:11-0400 Mean blood pressure 98 mm[Hg] Axel Hernández [facility] 03-06-2024 08:11-0400 Systolic blood pressure 147 mm[Hg] Axel Hernández [facility] 03-06-2024 08:11-0400 Heart rate 57 /min Axel Hernández [facility] 03-06-2024 08:11-0400 SaO2% (BldA) [Mass fraction] 98 % Axel Hernández [facility] 03-06-2024 08:10-0400 Blood Pressure Location Axel Hernández [facility] 03-06-2024 08:10-0400 Body temperature 98.06 [degF] Axel Hernández [facility] 03-06-2024 08:10-0400 Diastolic blood pressure 73 mm[Hg] Axel Hernández [facility] 03-06-2024 08:10-0400 Mean blood pressure 92 mm[Hg] Axel Hernández [facility] 03-06-2024 08:10-0400 Systolic blood pressure 129 mm[Hg] Axel Hernández [facility] 03-06-2024 08:10-0400 Respiratory rate 18 /min Axel Hernández [facility] 11-18-2023 11:00-0500 Body height 180.34 cm Jada Rene Other [facility] Other 11-18-2023 11:00-0500 Body mass index (BMI) [Ratio] 25.38 kg/m2 Jada Rene Other [facility] Other 11-18-2023 11:00-0500 Body temperature 97.6 [degF] Jada Rene Other [facility] Other 11-18-2023 11:00-0500 Body weight 82.56 kg Jada Rene Other [facility] Other 11-18-2023 11:00-0500 Diastolic blood pressure 80 mm[Hg] Jada Rene Other [facility] Other 11-18-2023 11:00-0500 Respiratory rate 18 /min Ajda Rene Other [facility] Other 11-18-2023 11:00-0500 SaO2% (BldA) [Mass fraction] 99 % Jadamary Rene Other [facility] Other 11-18-2023 11:00-0500 Systolic blood pressure 132 mm[Hg] Jada Rene Other [facility] Other 11-02-2023 13:00-0500 Body height 180.34 cm Jadaendy Rene Other [facility] Other 11-02-2023 13:00-0500 Body mass index (BMI) [Ratio] 24.4 kg/m2 Jadaendy Rene Other [facility] Other 11-02-2023 13:00-0500 Body weight 79.38 kg Jada Rene Other [facility] Other 11-02-2023 13:00-0500 Diastolic blood pressure 82 mm[Hg] Jada Edgard Other [facility] Other 11-02-2023 13:00-0500 Respiratory rate 18 /min Jada Rene Other [facility] Other 11-02-2023 13:00-0500 SaO2% (BldA) [Mass fraction] 97 % Jada Rene Other [facility] Other 11-02-2023 13:00-0500 Systolic blood pressure 138 mm[Hg] Jada Rene Other [facility] Other 09-21-2023 10:00-0500 Body height 180.34 cm Jada Rene Other [facility] Other 09-21-2023 10:00-0500 Body mass index (BMI) [Ratio] 25.81 kg/m2 Jada Rene Other [facility] Other 09-21-2023 10:00-0500 Body weight 83.96 kg Jada Rene Other [facility] Other 09-21-2023 10:00-0500 Diastolic blood pressure 70 mm[Hg] Jada Rene Other [facility] Other 09-21-2023 10:00-0500 Respiratory rate 18 /min Jada Rene Other [facility] Other 09-21-2023 10:00-0500 SaO2% (BldA) [Mass fraction] 98 % Jada Rene Other [facility] Other 09-21-2023 10:00-0500 Systolic blood pressure 140 mm[Hg] Jada Rene Other [facility] Other 06-16-2023 11:00-0400 Body height 180.34 cm Jada Rene Other [facility] Other 06-16-2023 11:00-0400 Body mass index (BMI) [Ratio] 23.79 kg/m2 Jada Rene Other [facility] Other 06-16-2023 11:00-0400 Body weight 77.38 kg Jada Rene Other [facility] Other 06-16-2023 11:00-0400 Diastolic blood pressure 64 mm[Hg] Jada Rene Other [facility] Other 06-16-2023 11:00-0400 Respiratory rate 18 /min Jada Rene Other [facility] Other 06-16-2023 11:00-0400 SaO2% (BldA) [Mass fraction] 98 % Jada Rene Other [facility] Other 06-16-2023 11:00-0400 Systolic blood pressure 118 mm[Hg] Jada Rene Other [facility] Other Encounters Encounter Date Encounter Type Care Provider Facility Start: 05-02-2025 ambulatory MD Kylah Garcia Facil [facility]y:[facility] Start: 11-01-2024 ambulatory MD Kylah Garcia Facil ity:[facility] Start: 09-10-2024 ambulatory MD Kylah Garcia Facil ity:[facility] [place] Start: 08-28-2024 End: 08-28-2024 ambulatory Davie Vargas Facility:[facility] Start: 08-28-2024 End: 08-28-2024 Patient encounter procedure Davie GarnerShanna Vargas [facility] [place] Start: 08-20-2024 End: 08-20-2024 Telephone encounter Antelmo Farrell MD Work Phone: [facility] Start: 08-13-2024 End: 08-13-2024 ambulatory Nathaniel Bonilla MD Facility:[facility] Start: 08-07-2024 End: 08-07-2024 ambulatory MD Kylah Garcia [facility] Start: 07-31-2024 End: 07-31-2024 ambulatory MD Kylah Garcia Facility:[facility] Start: 07-24-2024 End: 07-24-2024 ambulatory MD Kylah Garcia [facility] Start: 07-23-2024 ambulatory MD Kylah Garcia Facil ity: [place] Start: 07-05-2024 ambulatory MD Kylah Garcia [facility] Start: 07-03-2024 End: 07-03-2024 ambulatory MD Kylah Garcia Facility:[facility] Start: 06-20-2024 End: 06-20-2024 ambulatory AXEL HERNÁNDEZ Not Available Start: 06-11-2024 End: 06-11-2024 ambulatory XXXX NONE Facility:[facility] Start: 06-11-2024 End: 06-11-2024 Patient encounter procedure Kashif Barnett [facility] Start: 05-30-2024 End: 05-30-2024 ambulatory Dixon Dubose Facility:[facility] Start: 05-30-2024 End: 05-30-2024 Patient encounter procedure Dixon Dubose [facility] Start: 05-21-2024 End: 05-21-2024 ambulatory MD Kashif Barnett Facility:[facility] Start: 05-21-2024 End: 05-21-2024 Patient encounter procedure Kashiflis Barnett [facility] Start: 05-03-2024 End: 05-03-2024 ambulatory MD Kylah Garcia Facility: [facility] Start: 05-01-2024 End: 05-01-2024 ambulatory MD Kashif Barnett Facility:[facility] Start: 05-01-2024 End: 05-01-2024 Patient encounter procedure Kashiflis Barnett [facility] Start: 05-01-2024 End: 05-01-2024 Lab Drop off Kylah Garcia [facility] Start: 05-01-2024 End: 05-01-2024 ambulatory MD Kylah Garcia [facility]: [facility] Start: 04-20-2024 End: 04-20-2024 ambulatory MD Kashif Barnett Facility:[facility] Start: 04-20-2024 End: 04-20-2024 Patient encounter procedure Kashif Barnett [facility] Start: 04-04-2024 End: 04-04-2024 ambulatory AXEL HERNÁNDEZ Not Available Start: 03-26-2024 End: 03-26-2024 Admission to same day surgery center Axel Hernández [facility] Start: 03-26-2024 End: 03-26-2024 ambulatory Axel Hernández Facility:[facility] Start: 03-20-2024 End: 03-20-2024 ambulatory MD Kylah Garcia [facility]: [facility] Start: 03-08-2024 End: 03-08-2024 ambulatory MD Kylah Garcia [facility]: [facility] Start: 03-06-2024 End: 03-06-2024 ambulatory Axel Serina Edgar Facility:[facility] Start: 03-06-2024 End: 03-06-2024 Patient encounter procedure Axel Serina Hernández [facility] Start: 02-15-2024 End: 02-15-2024 ambulatory AXEL Serina HERNÁNDEZ Not Available Start: 02-15-2024 End: 02-15-2024 ambulatory AXEL Serina EDGAR Not Available Start: 02-02-2024 End: 02-02-2024 ambulatory MD Kylah Garcia Facility:[facility] Start: 12-06-2023 End: 12-06-2023 ambulatory Jadamary Rene Other [facility] Other Start: 12-06-2023 Telephone encounter Jada Rene [facility] [place] Start: 12-02-2023 End: 12-02-2023 ambulatory Jadamary Rene Other [facility] Other Start: 12-02-2023 Telephone encounter Jadamary Rene [facility] [place] Start: 12-01-2023 End: 12-01-2023 Lab Drop off Kylah Garcia [facility] Start: 12-01-2023 End: 12-01-2023 ambulatory MD Kylah Garcia Facility:[facility] Start: 12-01-2023 ambulatory MD Kylah Garcia Facility :[facility] [place] Start: 11-18-2023 End: 11-18-2023 ambulatory Jadaendy Rene Other [facility] Other Start: 11-18-2023 Office outpatient visit 25 minutes Jadaendy Rene [facility] [place] Start: 11-02-2023 End: 11-02-2023 ambulatory Jadaendy Rene [facility] Other Start: 11-02-2023 Office outpatient visit 25 minutes Jadaendy Rene [facility] [place] Start: 11-02-2023 Telephone encounter Jadamary Rene [facility] [place] Start: 10-28-2023 End: 10-28-2023 ambulatory Jadaendy Rene Other [facility] Other Start: 10-28-2023 Telephone encounter Jadamary Rene [facility] [place] Start: 09-30-2023 End: 09-30-2023 Nurse Triage Venessa Riggins RN NURSE [employer] Comment on above: Refill Request Start: 09-30-2023 Telephone encounter Jada Rene [facility] [place] Start: 09-21-2023 End: 09-21-2023 ambulatory Jadaendy Rene Other [facility] Other Start: 09-21-2023 Office outpatient visit 25 minutes Jada Rene [facility] [place] Start: 08-29-2023 End: 08-29-2023 ambulatory Jadaendy Rene Other [facility] Other Start: 08-29-2023 Telephone encounter Jada Rene [facility] [place] Start: 08-26-2023 End: 08-26-2023 ambulatory Jadaendy Rene Other [facility] Other Start: 08-26-2023 Telephone encounter Jada Rene [facility] [place] Start: 08-08-2023 End: 08-08-2023 ambulatory Jadaendy Rene Other [facility] Other Start: 08-08-2023 Telephone encounter Jada Rene [facility] [place] Start: 07-27-2023 End: 07-27-2023 ambulatory Jada Edgard Other [facility] Other Start: 07-27-2023 Telephone encounter Jadamary Rene [facility] [place] Start: 06-16-2023 End: 06-16-2023 ambulatory Jada Rene [place] [facility] Other Start: 06-16-2023 Office outpatient ne w 45 minutes Jada Rene [facility] Start: 06-16-2023 Telephone encounter Jadaendy Rene [facility] Procedures Date Procedure Procedure Detail Performing Clinician Start: 03-26-2024 Decompression of med carlos nerve Axel Hernández Decompression of med carlos nerve Axel Hernández Surgery (qualifier value) Sa fariha Garcia Plan of Treatment Date Care Activity Detail Author Start: 07-15-2023 Influenza vaccination Influenza Vacc ine (#1) [facility] Start: 11-14-2022 Advance Directive Discussion Advance Directive Discussion [facility] Start: 11-14-2022 Depression Assessment Depression Ass essment [facility] Start: 03-31-2016 Pneumococcal Vaccine : 65+ (2 - PPSV23 or PCV20) Pneumococcal Vaccine: 65+ (2 - PPSV23 or PCV20) [facility] Start: 03-24-2016 Hepatitis B surface antibody level LDL Cholesterol [facility] Start: 09-24-2015 Hemoglobin A1c/Hemoglobin.total in Blood HbA1C [facility] Start: 08-01-2015 3 comp foot exam completed Diabetic Foot Exam [facility] Start: 07-25-2015 Hepatitis B screening Urine Al bumin:Creatinine Ratio [facility] Start: 02-01-2015 Urine microalbumin profile DTaP,Tdap,Td Vaccine (1 - Tdap) [facility] Start: 10-24-2013 Shingrix Vaccine (2 of 3) Shingrix V accine (2 of 3) [facility] Start: 09-14-2012 Hepatitis C antibody , confirmatory test Dilated Retinal Exam [facility] Start: 2002 RSV Vaccine (1 - 1-d ose 60+ series) RSV Vaccine (1 - 1-dose 60+ series) [facility] Start: 1942 Covid-19 Vaccine (#1) Covid-19 Vacci ne (#1) [facility] Immunizations Immunization Date Immunization Notes Care Provider Fa cility 09-21-2023 Prevnar 20 Jada Rene Other [facility] 08-19-2023 Flu Shot - Documentation Purposes Only Jada Rene Other [facility] Other 08-19-2023 influenza virus vaccine, unspecified formulation Kylah Garcia [facility] 08-14-2022 influenza, seasonal, injectable Jada Rene Other [facility] Other 03-31-2015 pneumococcal conjuga te vaccine, 13 valent Jada Edgard Other [facility] 08-02-2014 influenza, high dose seasonal, preservative-free Venessa Riggins RN [facility] 08-02-2014 influenza virus vaccine, unspecified formulation Venessa Riggins RN [facility] 08-29-2013 zoster vaccine, live Venessa terrell RN [facility] 08-09-2013 influenza virus vaccine, unspecified formulation Venessa Riggins RN [facility] 07-31-2012 influenza virus vaccine, unspecified formulation Venessa Riggins RN [facility] Work Phone: 03-07-2012 tetanus and diphther ia toxoids, adsorbed, preservative free, for adult use (2 Lf of tetanus toxoid and 2 Lf of diphtheria toxoid) Venessa Riggins RN [facility] Work Phone: 08-07-2011 influenza virus vaccine, unspecified formulation Venessa Riggins RN [facility] Work Phone: NEGATED: Highlighted row has not occurred!08-28-2024 influenza virus vaccine, unspecified formulation Davie Vargas [facility] [place] Payers Date Payer Category Payer Unknown [employer] [id number] 2023-Present [address] [place] [id number] 2023 Unknown [id number] 2.16.840 .[id number] 2023 Medicare [id number] 2.16.840.1.464375.19 2023 Self-pay 2023 Medicare [id number]. 1.13.159.2.7.3. [id number] 1942 Unknown [id number] 2.16.840.1.377161.3.579.2.125 1942 Unknown [id number] 2.16.840.1.702127.3.579.2.1259 1942 Unknown [id number] 2.16.840.1.738673.3.579.2.125 1942 Unknown [id number] 2.16.840.1.597109.3.579.2.1259 1942 Unknown [id number] 2.16.840.1.143410.3.579.2.1259 1942 Unknown [id number] 2.16.840.1.698762.3.579.2.727 1942 Unknown [id number] 2.16840.1.662874.3.579.2.72 1942 Unknown [id number] 2.16.840.1.989158.3.579.2.727 1942 Unknown [id number] 2.16.840.1.627892.3.579.2.72 1942 Unknown [id number] 2.16.840.1.455251.3.579.2.72 1942 Unknown [id number] 2.16.840.1.069133.3.579.2.72 1942 Unknown [id number] 2.16.840.1.612682.3.579.2.72 1942 Unknown [id number] 2.16.840.1.360204.3.579.2. 1942 Unknown [id number] 2.16.840.1.524464.3.579.2. 1942 Unknown [id number] 2.16.840.1.939268.3.579.2. 1942 Unknown [id number] 2.16.840.1.590577.3.579.2. 1942 Unknown [id number] 2.16.840.1.043993.3.579.2 1942 Unknown [id number] 2.16.840.1.320338.3.579.2 1942 Unknown [id number] 2.16.840.1.684000.3.579.2 1942 Unknown [id number] 2.16.840.1.921232.3.579.2.196 1942 Unknown [id number] 2.16.840.1.709351.3.579.2 1942 Unknown [id number] 2.16.840.1.766782.3.579.2. 1942 Unknown [id number] 2.16.840.1.225435.3.579.2 1942 Unknown [id number] 2.16.840.1.848376.3.579.2. 1942 Unknown [id number] 2.16.840.1.175503.3.579.2 1942 Unknown [id number] 2.16.840.1.913750.3.579.2 1942 Unknown [id number] 2.16.840.1.545437.3.579.2.727 1942 Unknown [id number] 2.16.840.1.191308.3.579.2.727 1942 Unknown [id number] 2.16.840.1.293563.3.579.2.727 1942 Unknown [id number] 2.16.840.1.304501.3.579.2.727 1942 Unknown [id number] 2.16.840.1.242942.3.579.2.727 Medicare [id number] 2.16.840.1.678674.19 Unknown [id number] 2.16.840.1.739008.3.579.2.531 Unknown [id number] 2.16.840.1.168048.3.579.2.531 Social History Date Type Detail Facility Start: 06-20-2024 Sex Assigned At F [facility] Start: 12-01-2023 End: 08-28-2024 Tobacco smoking status NHIS Never smoked tobacco [facility] Start: 06-28-2022 Alcohol intake Current drinke r of alcohol (finding) [facility] Start: 06-28-2022 End: 06-20-2024 Alcohol intake [facility] Start: 1940 Sex Assigned At Not on file [facility] Tobacco smoking status Never [facility] [place] Start: 02-15-2024 Tobacco use and exposure Smokeless tobacco non-user [facility] Medical Equipment Procedure Code Equipment Code Equipment Origin al Text Equipment Identifier Dates Test blood sugar(s) 2 times daily. Dx: non. Insulin: No dx 250.00 Start: 08-24-2013 Comment on above: Test blood sugar(s) 2 times daily. Dx: non. Insulin: No dx 250.00 Functional Status Date Assessment Result Facility 08-28-2024 Functional Status N/A [facility] [place] 06-11-2024 Functional Status N/A [facility] 05-30-2024 Functional Status No [facility] 04-20-2024 Functional Status N/A [facility] 03-06-2024 Functional Status No [facility] Clinical Notes 03-10-2010 to 08-20-2024 Telephone Encounter - Miguel Moe - 08/20/2024 10:50 AM EDTTelephone Encounter - Miguel Moe - 08/20/2024 10:50 AM EDT Note Date & Type Note Facility 08-20-2024 Telephone encounter Note LVM to RC in regard to BUE referral from Dr. Hernández--Approved to schedule--25.00 co-pay will be applied to toward OOP. [facility] 08-20-2024 Miscellaneous Notes LVM to RC in regard to BUE referral from Dr. Hernández--Approved to schedule--25.00 co-pay will be applied to toward OOP. documented in this encounter [facility] 05-01-2024 Note Echocardiology Procedure Exam Date/Time Accession # Ordering Echo Transthoracic 05/01/2024 15:00 EDT [id number] Kashif Barnett MD Complete CPT code 35147 [id number] Reason for Exam (Echo Transthoracic Complete) AFIB, Syncope R55;Other (please specify) Report Version: 1 Study ID: [id number] Adult Echocardiogram Report Name: DARIEL ZABALA Study Date: 05/01/2024, 2: 02 PM Patient Location: [facility] : 1940 (MM/DD/YYYY) Gender: Male Age: [...] Signed by: Jason Vaughn MD Transcribed by: [facility] Technologist: ILSA [facility] 03-26-2024 Hospital Discharg e instructions Patient Education [...] condition: Doing activities that require a strong oxidation engineer. Having rheumatoid arthritis, gout, or diabetes. Being [...] splint on your hand. General instructions Take bhcw-kgd-qbeearp and prescription medicines only as told by [...] provider. Document Revised: 03/17/2020 Document Reviewed: 03/17/2020 [employer] Patient Education 2022 [employer]. Follow Up Care 03/01/2024 15:40:29 With:GORDO Weller Address: [address] [place] [address] Business (1) When:04/04/2024 10:15:00 Comments:Keep scheduled appointment [facility] 03-20-2024 Note [id number] [facility] 11-18-2023 Evaluation note Encounter Date Diagnosis Assessment [...] sodium level at upcoming appt in January [facility] 12-20-2023 Evaluation note* Encounter Date Diagnosis [...] further dizziness symptoms would recommend f/u with pollution control engineer as well. [facility] 11-17-2023 Evaluation note* Encounter Date Diagnosis Assessment Notes Treatment Notes Treatment Clinical Notes Sep, Type 2 diabetes mellitus (ICD-10 - E11.9) [facility] 11-17-2023 Miscellaneous Notes* Telephone Encounter - Venessa Riggins RN - 09/30/2023 12:29 PM EST Called patient back and reviewed plan from his call with Nurse Furnace Cooler at 11:36 AM. See my note Patient [...] have any questions, you can call Nurse care transitions manager back. * Telephone Encounter - Venessa Riggins RN - 09/30/2023 11:36 AM EST Patient calling with request for physician referral: Patient referred to nephrology and primary care Department. Patient denies any new or worsening symptoms of which a provider is not aware: Yes. Patient was discharged from [facility] on 08/26 for low sodium and [...] have any questions, you can call Nurse care transitions manager back. [facility]* Encounter Date Diagnosis Assessment Notes Treatment Notes Treatment Clinical Notes Sep, Hyponatremia (ICD-10 - E87.1) Recent sodium 136 at low end of normal, given significance of symptoms and recommendation of hospital for f/u will refer to nephrology patient requesting [place] Sep, Anticoagulant long-term use (ICD-10 - Z79.01) Follows with INR clinic through [facility]. Sep, Atrial fibrillation (ICD-10 - I48.91) Appears in NSR today, anticoagulated on Warfarin Sep, Hypothyroidism (ICD-10 - E03.9) Recent TFTs in normal range, clinically euthyroid, continue current dose of LT4 Sep, Type 2 diabetes mellitus (ICD-10 - E11.9) Recent a1c in good range at 5.6%, continue current dose of glimepiride. Sep, Immunization due (ICD-10 - Z23) [facility] 10-16-2023 Evaluation note* Encounter Date Diagnosis Assessment Notes Treatment Notes Treatment Clinical Notes Aug, Hyponatremia (ICD-10 - E87.1) [facility] 08-03-2023 Evaluation note* Encounter Date Diagnosis Assessment Notes Treatment Notes Treatment Clinical Notes Jun, Atrial fibrillation (ICD-10 - I48.91) Rate controlled, mild bradycardia but asymptomatic. Will continue current dose of atenolol. He is anticoagulated on Coumadin with goal INR 2-3, he is due for INR check. Will refer to coumadin clinic through [facility] Jun, Anticoagulant long-term use (ICD-10 - Z79.01) Jun, Hearing loss (ICD-10 - H91.90) Referral to local solid waste management engineer Jun, Dermatitis (ICD-10 - L30.9) Can trial topical steroid PRN, discussed may be secondary to dry skin. Recommend daily use of lotion Jun, Hypothyroidism (ICD-10 - E03.9) Due for TFTs prior to next visit Jun, Type 2 diabetes mellitus (ICD-10 - E11.9) Due for a1c prior to next visit Jun, BPH (benign prostatic hyperplasia) (ICD-10 - N40.0) [facility] 08-03-2023 Reason for referral (narrative)* Reason Medication managemen t through [facility] - Coumadin management with INR goal 2-3 Diagnosis 1 Anticoagulant long-t erm use (Z79.01) Referral Organization [facility] Family Medicin e Kevin Referring Provider First Name Jada Referring Provider Last Name Edgard Referring Provider Specialty Family [facility] Referred Organization [facility] Referred Address [address], [place],[address] Referred Provider Specialty Milvia felix Referral Priority Routine General Notes Gabrielle Reid 01/2023 01:34:29 PM >this is an order not a referral, clinical informed and will fax order over for standing order INR to [facility] Reason * FU 06/29 CALL he aring loss, issue with hearing aids Diagnosis 1 Hearing loss (H91.90 ) Referral Organization [facility] Family Rodo John Referring Provider First Name Jada Referring Provider Last Name Edgard Referring Provider Specialty Family [facility] Organization [facility] [place], [place],[address] Referred Provider Specialty Audiologists Referral Priority Routine General Notes Jeanette Gabrielle L 01/2023 01:28:34 PM >referral received and faxed [facility] 04-27-2010 History of Past illness Narrative* Problem Noted Date Diagnosed Date Resolved Date Myalgia 03/10/2010 03/01/2011 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 and other lower urinary tract symptoms (LUTS) 08/11/2006 01/11/2013 Elevated prostate specific antigen (PSA) 03/07/2012 documented as of this encounter (statuses as of 09/30/2023) [facility] No data available for this section [facility] Future Appointments Appointment Date:03/08/2024 01:00:00 PM Scheduled Provider:[facility] Appointment Date:03/26/2024 01:45:00 PM Scheduled Provider: Location:[facility] Appointment Type:Surgery FT Appointment Date:05/01/2024 09:00:00 AM Scheduled Provider: [facility] Type: Lab Draw Appointment Date:05/03/2024 08:00:00 AM Scheduled Provider: Location:[facility] Appointment Type:FM Medicare Wellness Subsequent Appointment Date:05/03/2024 09:00:00 AM Scheduled Provider:Kylah Garcia MD [facility] Type: Open Future Scheduled Tests Laboratory* PSA Screen, Total 02/02/24 * CBC w/ Auto Diff 02/02/24 * Comprehensive Metabolic Panel 02/02/24 * Lipid Panel 02/02/24 [facility] Future Appointments Appointment Date:05/01/2024 09:00:00 AM Scheduled Provider: [facility] Type:FM Lab Draw Appointment Date:05/03/2024 08:00:00 AM Scheduled Provider: [facility] Type: Medicare Wellness Subsequent Appointment Date:05/03/2024 09:00:00 AM Scheduled Provider:Kylah Garcia MD Location:[facility] Appointment Type: Open Future Scheduled Tests Laboratory* PSA Screen, Total 02/02/24 * CBC w/ Auto Diff 02/02/24 * Comprehensive Metabolic Panel 02/02/24 * Lipid Panel 02/02/24 [facility] Future Appointments Appointment Date:05/01/2024 09:00:00 AM Scheduled Provider: Location:[facility] Appointment Type: Lab Draw Appointment Date:05/03/2024 08:00:00 AM Scheduled Provider: Location:[facility] Appointment Type: Medicare Wellness Subsequent Appointment Date:05/03/2024 09:00:00 AM Scheduled Provider:Kylah Garcia MD Location:[facility] Appointment Type: Open Appointment Date:05/25/2024 01:00:00 PM Scheduled Provider:Kashif Barnett MD [facility] [place] Appoint[facility] Type:Cardiology Follow Up (FT) Future Scheduled Tests Laboratory* PSA Screen, Total 02/02/24 * CBC w/ Auto Diff 02/02/24 * Comprehensive Metabolic Panel 02/02/24 * Lipid Panel 02/02/24 Radiology* Echo Transthoracic Complete 04/20/24 [facility] Future Appointments Appointment Date:05/03/2024 08:00:00 AM Scheduled Provider: Location:[facility] Appointment Type: Medicare Wellness Subsequent Appointment Date:05/03/2024 09:00:00 AM Scheduled Provider:Kylah Garcia MD Location:[facility] Appointment Type: Open Appointment Date:05/21/2024 10:00:00 AM Scheduled Provider: [facility] Type:CV Holter/Event (FT) Appointment Date:05/25/2024 01:00:00 PM Scheduled Provider:Kashif Barnett MD [facility] [place] Appointment Type:Cardiology Follow Up (FT) [facility] Future Appointments Appointment Date:05/30/2024 03:45:00 PM Scheduled Provider:Kashif Barnett MD Location[facility] Appointment Type:Cardiology Follow Up (FT) Appointment Date:11/01/2024 09:15:00 AM Scheduled Provider:Kylah Garcia MD Location:[facility] Appointment Type: Open Appointment Date:05/02/2025 08:00:00 AM Scheduled Provider: Location:[facility] Appointment Type: Medicare Wellness Subsequent [facility] Future Appointments Appointment Date:08/31/2024 01:00:00 PM Scheduled Provider:Kashif Barnett MD [facility] [place] Appointment Type:Cardiology Follow Up (FT) Appointment Date:11/01/2024 09:15:00 AM Scheduled Provider:Kylah Garcia MD Location:[facility] Appointment Type: Open Appointment Date:05/02/2025 08:00:00 AM Scheduled Provider: Location:[facility] App[facility]ments Appointment Date:11/01/2024 09:15:00 AM Scheduled Provider:Kylah Garcia MD Location:[facility] Appointment Type:FM Open Appointment Date:12/11/2024 01:00:00 PM Scheduled Provider:Dixon Dubose PA-C [facility] Type:Cardiology Follow Up (FT) Appointment Date:05/02/2025 08:00:00 AM Scheduled Provider: Location:[facility] Appointment Type:FM Medicare Wellness Subsequent [facility] Evaluation noteNo InformationNortRoxbury Treatment Center [email or web address] Application Other History general Narrative - Reported* Type Description Date Medical History type 2 diabetes Medical History hypothyroid Medical History Afib Surgical History multiple neck sx Surgical History tonsillectomy Surgical History adenoidectomy Surgical History MAU cataract Hospitalization History see above [facility] Other History general Narrative - Reported* Type Description Date Medical History type 2 diabetes Medical History hypothyroid Medical History Afib Surgical History multiple neck sx Surgical History tonsillectomy Surgical History adenoidectomy Surgical History MAU cataract Hospitalization History see above Hospitalization History [facility] Other History general Narrative - Reported* Type [...] 2 DM, generalized weakness hypomagnesiema, RADHA 11/13/23-11/15/23 [facility] Hospital Discharge instructions No data available for this section [facility] No data available for this section [facility] Summary Purpose Family History No Family [...] hospitalization for symptomatic hyponatremia, [facility] [place] [address] Lara ph [phone], fax [phone] Diagnosis 1 Hyponatremia (E87.1) Referral Organization [facility] Family Rodo John Referring Provider First Name Jada Referring Provider Last Name Edgard Referring Provider Specialty [facility] Referred Organization [facility] Referred Provider Romeo Lara Referred Address [address] [place] [id number] Referred Provider Specialty Internal Med icine Referral Priority Routine General Notes Gabrielle Reid 06/2023 01:35:25 PM > referral received and faxed Clinical Notes [facility] [place] [address] Lara ph [phone], fax [phone] Reason hyponatremia, recent hospitalization [facility] for hyponatremia Diagnosis 1 Hyponatremia (E87.1) Referral Organization [facility] Rodo John Referring Provider First Name Jada Referring Provider Last Name [facility] Referring Provider Specialty [facility] Referred Organization [facility] Ref[place] Address [address] [place], [place],[address] Referred Provider Specialty Nephrology Referral Priority Routine Additional Source Comments (unrecognized sect ion and content) No Status Records FoundNo Status Records FoundNo Status Records FoundNo Status Records FoundNo Status Records FoundNo Status Records FoundNo Status Records FoundNo Status Records FoundNo Status Records FoundNo Status Records Found INFORMATION SOURCE (unrecogn ized section and content) DATE CREATED AUTHOR 06/03/2020 [facility] DATE CREATED AUTHOR AUTHOR'S ORGANIZ ATION 11/10/2023 [facility] DATE CREATED AUTHOR AUTHOR'S ORGANIZ ATION 05/03/2024 [facility] DATE CREATED AUTHOR AUTHOR'S ORGANIZ ATION 06/22/2024 [facility] DATE CREATED AUTHOR AUTHOR'S ORGANIZ ATION 07/01/2024 [facility] DATE CREATED AUTHOR AUTHOR'S ORGANIZ ATION 08/17/2024 [facility] DATE CREATED AUTHOR AUTHOR'S ORGANIZ ATION 09/04/2024 [facility] REASON FOR VISIT (unrecogniz ed section and content) Reason Comments Refill Request Source Comments (unrecognize d section and content) In the event this informatio n is protected by the Federal Confidentiality of Alcohol and Drug Abuse Patient Records regulations: The Federal rules restrict any use of the information to criminally investigate or prosecute any alcohol or drug abuse patient.[facility] Patient Care team informatio n (unrecognized section and content) Fiscal Services Director Relationship Specialty Start Date End Date Kylah Garcia MD PCP - General Family Medicine 02/03/24 FOR RECORDS PERTAINING TO PATIENTS WHO ARE [...] BE BASED ON THE PRIMARY CLINICAL RECORDS. [facility]. provides no warranty or guarantee of the accuracy or completeness of information in this document.
[2024-09-06 09:06] LABS: Albumin Level 3.4 g/dL (3.4-5.0); Anion Gap 13.6; BUN Creatinine Ratio 9.3; Calcium 9.3 mg/dL (8.5-10.1); Carbon Dioxide 28.7 mmol/L (21.0-32.0); Chloride 99 mmol/L (98-107); Estimated GFR (African America >60 (>=60 mL/min/1.73m^2); Estimated GFR (Non-African Ame >60 (>=60 mL/min/1.73m^2); Glucose 88 mg/dL (74-106); Phosphorus 3.8 mg/dL (2.6-4.7); Potassium 4.3 mmol/L (3.5-5.1); Sodium 137 mmol/L (136-145)
== END 2024-09-06 07:05 | disposition home or self-care (01) ==
PROVIDERS: PCP Family Medicine
DX: E87.1 Hypo-osmolality and hyponatremia (principal); I10 Essential (primary) hypertension
CPT/HCPCS: 36415; 80069

== ENCOUNTER 2024-09-14 10:21 | Outpatient (RCR) | payer OTHER, SELFPAY | END 2024-10-13 23:59 | disposition home or self-care (01) | LOC: MM 10:21 | PROVIDERS: PCP Family Medicine; Visit Provider Internal Medicine | DX: Z51.81 Encounter for therapeutic drug level monitoring (principal); Z79.01 Long term (current) use of anticoagulants; I48.20 Chronic atrial fibrillation, unspecified | CPT/HCPCS: 85610; G0463 ==

== ENCOUNTER 2024-10-14 10:38 | Outpatient (RCR) | payer OTHER, SELFPAY | END 2024-11-13 09:56 | disposition home or self-care (01) | LOC: MM 10:38 | PROVIDERS: PCP Family Medicine; Visit Provider Internal Medicine | DX: Z51.81 Encounter for therapeutic drug level monitoring (principal); Z79.01 Long term (current) use of anticoagulants; I48.20 Chronic atrial fibrillation, unspecified | CPT/HCPCS: 85610; G0463 ==

== ENCOUNTER 2024-11-15 00:16 | Outpatient (RCR) | payer OTHER, SELFPAY | END 2024-12-14 15:03 | disposition home or self-care (01) | LOC: MM 00:16 | PROVIDERS: PCP Family Medicine; Visit Provider Internal Medicine | DX: Z51.81 Encounter for therapeutic drug level monitoring (principal); Z79.01 Long term (current) use of anticoagulants; I48.20 Chronic atrial fibrillation, unspecified | CPT/HCPCS: 85610; G0463 ==

== ENCOUNTER 2024-11-22 17:59 | Emergency (ER) | payer OTHER, SELFPAY ==
[2024-11-22] VITALS (10 sets, daily range): BP systolic 157–185; BP diastolic 77–104; PULSE 65–74; TEMP 36.9; O2SAT 98–100; BMI 24.4
--- OUTSIDE RECORDS SUMMARY | 2024-11-22 18:22 | XMS_ITS | CCD ---
Author Organization [facility] CliniSynh Care Team Providers Care Nnps Name Role Phone Jada Rene Unavailable Unavailable Primary Care Provider Unavailrogerio e Edgard Jada Endy Attending Unavailable Edgard Jada A Admitting Unavailable Edgard Jada Endy Primary Care Unavailable Edgard Jada Endy Attending Unavailable Edgard Jada Endy Admitting Unavailable Edgard Jaad Endy Primary Care Unavailable Kylah Medina Primary Care Physician MD Kylah Medina Attending Unavailable MD Kylah Medina Attending Unavailable MD Kylah Medina Attending Unavailable MD Kylah Medina Attending Unavailable Axel Hernández Admitting Unavailable Axel Hernández Attending Unavailable Catherine Axel T Referring Unavailable MD Kashif Barnett Admitting Unavailable MD Kashif Barnett Attending Unavailable MD Kashif Barnett Referring Unavailable Jason Vaughn Consulting Unavaila Jason Chase Consulting Unavaila Jason Chase Consulting Unavaila MD Kylah Choudhury Admitting Unavailable MD Kylah Medina Attending Unavailable MD Kylah Medina Admitting Unavailable MD Kylah Medina Attending Unavailable Axel Hernándze Admitting Unavailable Axel Hernández Attending Unavailable Catherine Axel Serina Referring Unavailable MD Kashif Barnett Attending Unavailable MD Kylah Medina Referring Unavailable Dixon Dubose Admitting Unavailable Dixon Dubose Attending Unavailable MD Kylah Medina Referring Unavailable MD Kylah Medina Attending Unavailable MD Kylah Medina Attending Unavailable MD Kylah Median Attending Unavailable Nathaniel Bonilla MD Attending Unavailable Kylah Medina MD Primary Care Provider AXEL HERNÁNDEZ Referring Unavailable HERNÁNDEZ, AXEL T Attending Unavailable ROSSKYLAH E Referring Unavailable HERNÁNDEZ, AXEL T Attending Unavailable HERNÁNDEZ, AXEL T Referring Unavailable HERNÁNDEZ, AXEL T Attending Unavailable HERNÁNDEZ, AXEL T Referring Unavailable BEJ, SHALA Craig Attending Unavailable HERNÁNDEZ, AXEL T Attending Unavailable HERNÁNDEZ, AXEL T Referring Unavailable Ross, Kylah EShanna Attending Unavailable Ross, Kylah EShanna Attending Unavailable Ross, Kylah EShanna Attending Unavailable Ross, Kylah EShanna Attending Unavailable Ross, Kylah EShanna Attending Unavailable Ross, Kylah EShanna Attending Unavailable Ross, Kylah EShanna Attending Unavailable Mourany, Davie Cole Attending Unavailable RossKylah EShanna Referring Unavailable Mourany, Davie Cole Attending Unavailable NONE, XXXX Referring Unavailable Ericka, MD Kashif Craig Admitting Unavailable Ericka, MD Kashif Craig Attending Unavailable Ericka, MD Kashif Craig Admitting Unavailable Kirjuliana, MD Kashif Craig Attending Unavailable Ericka, MD Kashif Craig Referring Unavailable Adam, Kylah EShanna Attending Unavailable Ross, Kylah EShanna Admitting Unavailable Hernández, Axel T Referring Unavailable Hernández, Axel T Admitting Unavailable Hernández, Axel T Attending Unavailable Hernández, Axel T Referring Unavailable Hernández, Axel T Attending Unavailable Hernández, Axel T Admitting Unavailable Adam, Kylah EShanna Attending Unavailable RossKylah EShanna Attending Unavailable Ross, Kylah EShanna Attending Unavailable Ross, Kylah EShanna Admitting Unavailable Ross, Kylah EShanna Attending Unavailable RossKylah EShanna Admitting Unavailable Allergies Allergy Classification Reported Allergen(s) Allergy Type Date of Onset Reaction(s) Facility (3 sources) No Known Medication Allergies; Translations: [No Known Medication Allergies] Propensity to adverse reactions (disorder) [facility] Repository Medications Current Medications Medication Drug Class(es) Dates Sig (Normalized) Sig (Original) acetaminophen 325 mg / HYDROcodone bitartrate 5 mg oral tablet (8 sources) Opioid Agonist Start: 03-20-2024 take 1 tablet by mouth every four hours as needed for pain [place] 325 mg-5 mg oral tablet See Instructions, for pain, 10 tab(s), Refill(s) 0, 1 tab(s) Oral q4hr PRN Pain. Duration 7 days., [id number], 180.5, cm, 03/20/24 15:05:00 EDT, Height/Length Dosing, 82.5, kg, 03/20/24 15:05:00 EDT, Weight Dosing Start Date: 03/20/24 Status: Ordered HYDROcodone-acet aminophen ([place]) 5-325 MG tablet Active atenolol 25 mg oral tablet (20 sources) beta-Adrenergic Dimitris Start: 10-22-2024 atenol ol 25 mg Tab See Instructions, take 1/2 tab daily, # 90 tab(s), Refills(s) 1, Pharmacy: [facility], 178, cm, 09/10/24 13:01:00 EDT, Height/Length Dosing, 80.1, kg, 09/10/24 13:01:00 EDT, Weight Dosing Start Date: 10/22/24 Status: Ordered Start: 04-20-2024 atenolol 25 mg Tab See Instructions, take 1/2 tab daily, # 30 tab(s), Refills(s) 5, Pharmacy: [facility][id number], 180, cm, 04/20/24 13:27:00 EDT, Height/Length Dosing, 82.2, kg, 04/20/24 13:27:00 EDT, Weight Dosing Start Date: 04/20/24 Status: Ordered Start: 10-06-2015 take 1 tablet by alyssa th once daily atenolol 25 mg Tab 25 mg = 1 tab(s), Oral, Daily, # 90 tab(s), Refills(s) 0, Pharmacy: [facility], 178.2, cm, 02/02/24 10:29:00 EDT, Height/Length Dosing, 84.1, kg, 02/02/24 10:29:00 EDT, Weight Dosing Start Date: 02/22/24 Status: Ordered take 1 tablet by alyssa th every twelve hours Atenolol 25 MG 1 tablet Orally twice a day for 90 days Active Comment on above: TAKE 1 TABLET ONE TI ME DAILY benzonatate 200 mg oral capsule (7 sources) Non-narcotic Antitussive take 1 capsule by mouth three times daily benzonatate (Tessalon) 200 MG capsule Take 1 capsule 3 times a day by oral route. Active cephalexin 500 mg oral capsule (7 sources) Cephalosporin Antibacterial cephalexin (Keflex) 500 MG capsule Active cholecalciferol 0.125 mg oral capsule (14 sources) Vitamin D take 1 capsule by mouth every twenty-four hours CoQ10 (11 sources) Start: 03-06-20 CoQ10 See Instructions, PRN Prophylaxis, Refills(s) 0 Start Date: 03/06/24 Status: Ordered Start: 03-06-2024 CoQ10 Refills( s) 0 Start Date: 03/06/24 Status: Ordered D3 (6 sources) Start: 05-03-2024 D3 See Instructions, Oral Daily- patient states he takes 500 once a day, Refills(s) 0 Start Date: 05/03/24 Status: Ordered diclofenac sodium 0.01 mg/mg topical gel (7 sources) Nonsteroidal Anti-inflammatory Drug diclofenac sodium (Voltaren) 1 % gel APPLY 1/2 inchTO THE AFFECTED AREA(S) BY TOPICAL ROUTE BID Active finasteride 5 mg oral tablet (20 sources) 5-alpha Reductase Inhibitor Start: 11-08-2024 take 1 tablet by mouth once daily finasteride 5 mg Tab 5 mg = 1 tab(s), Oral, Daily, # 90 tab(s), Refills(s) 1, Pharmacy: [facility]/pharmacy #[id number], 178.6, cm, 11/01/24 9:21:00 EST, Height/Length Dosing, 81.3, kg, 11/01/24 9:21:00 EST, Weight Dosing Start Date: 11/08/24 Status: Ordered Start: 10-09-2014 take 1 tablet by alyssa th once daily finasteride 5 mg Tab 5 mg = 1 tab(s), Oral, Daily, # 90 tab(s), Refills(s) 1, Pharmacy: [facility], 180, cm, 04/20/24 13:27:00 EDT, Height/Length Dosing, 82.2, kg, 04/20/24 13:27:00 EDT, Weight Dosing Start Date: 04/30/24 Status: Ordered Comment on above: Take 1 tablet by alyssa once daily. fluticasone propionate 0.05 mg/actuat metered dose nasal spray (10 sources) Corticosteroid Start: 08-31-2024 fluticasone Nasal 0.05 mg/inh [place] See Instructions, 48 mL, Refill(s) 1, USE 1 SPRAY IN EACH NOSTRIL TWICE A DAY, [id number], 178, cm, 08/28/24 14:50:00 EDT, Height/Length Dosing, 82.2, kg, 08/28/24 14:50:00 EDT, Weight Dosing Start Date: 08/31/24 Status: Ordered Start: 07-03-2024 take 1 spray(s) nasa l route twice daily Flonase 0.05 mg/inh [place] 1 spray(s), Nasal, BID, 16 gram, Refill(s) 0, each nostril, [facility] #[id number], 178, cm, 07/03/24 10:05:00 EDT, Height/Length Dosing, 80.8, kg, 07/03/24 10:05:00 EDT, Weight Dosing Start Date: 07/03/24 Status: Ordered take 1 spray(s) nasa l route once daily at bedtime fluticasone (Flonase) 50 MCG/ACT nasal spray USE 1 SPRAY(S) IN EACH NOSTRIL ONCE DAILY AT BEDTIME Active gabapentin 300 mg oral capsule (20 sources) Anti-epileptic Agent Start: 12-01-2023 take 1 capsule by mouth once daily gabapentin 300 mg Cap 300 mg = 1 cap(s), Oral, Daily, # 90 cap(s), Refills(s) 1, Pharmacy: [facility], 178, cm, 07/03/24 10:05:00 EDT, Height/Length Dosing, 80.8, kg, 07/03/24 10:05:00 EDT, Weight Dosing Start Date: 07/03/24 Status: Ordered glimepiride 2 mg oral tablet (20 sources) Sulfonylurea Start: 10-14-2014 glimepiride 2 mg Tab See Instructions, TAKE 1 TABLET DAILY, # 3 tab(s), Refills(s) 0, Pharmacy: [facility], 178, cm, 08/07/24 10:59:00 EDT, Height/Length Dosing, 78.2, kg, 08/07/24 10:59:00 EDT, Weight Dosing Start Date: 08/20/24 Status: Ordered Comment on above: Take 1 tablet by alyssa once daily. hydroCHLOROthiazide 25 mg oral tablet (7 sources) Thiazide Diuretic take 1 tablet by mouth once daily hydroCHLOROthiazide (HYDRODiuril) 25 MG tablet Take 1 tablet by mouth Daily Active levothyroxine sodium 0.025 mg oral tablet (20 sources) l-Thyroxine Start: 08-20-2024 Synthroid 25 mcg(0.025 mg) Tab See Instructions, TAKE 1 TABLET DAILY ON AN EMPTY STOMACH, # 3 tab(s), Refills(s) 0, Pharmacy: [facility]/pharmacy #[id number], 178, cm, 08/07/24 10:59:00 EDT, Height/Length Dosing, 78.2, kg, 08/07/24 10:59:00 EDT, Weight Dosing Start Date: 08/20/24 Status: Ordered Start: 02-13-2024 take 1 tablet by alyssa once daily levothyroxine 25 mcg (0.025 mg) Tab 25 mcg = 1 tab(s), Oral, Daily, on an empty stomach, # 90 tab(s), Refills(s) 1, Pharmacy: [facility], 178.2, cm, 02/02/24 10:29:00 EDT, [...] day Active meloxicam 15 mg oral tablet (19 sources) Nonsteroidal Anti-inflammatory Drug Start: 12-01-2023 take 1 tablet by mouth once daily as needed meloxicam 15 mg Tab 15 mg = 1 tab(s), Oral, Daily, as needed, Refills(s) 0 Start Date: 12/01/23 Status: Ordered methocarbamol 750 mg oral tablet (3 sources) Muscle Relaxant Start: 07-15-2024 take 1 tablet by mouth three times daily as needed for pain methocarbamol (Robaxin) 750 MG tablet TAKE 1 TABLET BY MOUTH 3 TIMES A DAY NEEDED FOR PAIN 07/15/2024 Active omeprazole 40 mg delayed release oral capsule (20 sources) Proton Pump Inhibitor Start: 12-01-2023 take 1 capsule by mouth once daily omeprazole 40 mg Cap-DR 40 mg = 1 cap(s), Oral, Daily, # 90 cap(s), Refills(s) 1, Pharmacy: [facility], 178, cm, 08/28/24 14:50:00 EDT, Height/Length Dosing, 82.2, kg, 08/28/24 14:50:00 EDT, Weight Dosing Start Date: 08/30/24 Status: Ordered pravastatin sodium 40 mg oral tablet (20 sources) HMG-CoA Reductase Inhibitor Start: 10-09-2014 take 1 tablet by mouth once daily pravastatin 40 mg Tab 40 mg = 1 tab(s), Oral, Daily, # 90 tab(s), Refills(s) 3, Pharmacy: [facility], 178, cm, 09/10/24 13:01:00 EDT, Height/Length Dosing, 80.1, kg, 09/10/24 13:01:00 EDT, Weight Dosing Start Date: 10/04/24 Status: Ordered pravastatin (Pra vachol) 20 MG tablet Active Comment on above: Take 1 tablet by alyssa th daily at bedtime. sildenafil 100 mg oral tablet (20 sources) Phosphodiesterase 5 Inhibitor Start: 07-03-20 take 1 tablet by mouth once daily as needed sildenafil 100 mg Tab 100 mg = 1 tab(s), Oral, Daily, PRN for erectile dysfunction, 1 hour before sexual activity, # 5 tab(s), Refills(s) 0, Pharmacy: [facility], 178, cm, 07/03/24 10:05:00 EDT, Height/Length Dosing, 80.8, kg, 07/03/24 10:05:00 EDT, Weight Dosing Start Date: 07/03/24 Status: Ordered Start: 02-02-2024 take 1 tablet by alyssa th once daily as needed sildenafil 100 mg Tab 100 mg = 1 tab(s), Oral, Daily, PRN for erectile dysfunction, 1 hour before sexual activity, # 5 tab(s), Refills(s) 0, Pharmacy: [facility], 178.2, cm, 02/02/24 10:29:00 EDT, [...] Orally Once a day Active Sodium Chloride (20 sources) Start: 06-27-2024 take 1 tablet by mouth once daily Sodium Chloride 1 g oral tablet See Instructions, 1 gram orally daily, # 90 tab(s), Refills(s) 0, [id number] 178, cm, 06/11/24 12:53:00 EDT, Height/Length [...] DAY, # 90 tab(s), Refills(s) 2, [id number] 180.5, cm, 03/20/24 15:05:00 EDT, Height/Length Dosing, 82.5, kg, 03/20/24 15:05:00 EDT, Weight Dosing Start Date: 04/05/24 Status: Ordered Start: 12-29-2023 take 1 tablet by alyssa th in the morning sodium chloride 1 g tablet Take 1 g by mouth in the morning and 1 g before bedtime. 12/29/2023 Active Start: 12-23-2023 take 1 tablet by alyssa th twice daily Sodium Chloride 1 g oral tablet See Instructions, TAKE 1 TABLET BY MOUTH TWICE DAY, # 90 tab(s), Refills(s) 2, Pharmacy: [facility], 178.2, cm, 12/01/23 13:40:00 EST, Height/Length Dosing, 85.5, kg, 12/01/23 13:40:00 EST, Weight Dosing Start Date: 12/23/23 Status: Ordered take 1 tablet by [facility] three times daily Sodium Chloride 1000 MG 1 tablet Orally Three times a day Active tamsulosin hydrochloride 0.4 mg oral capsule (20 sources) alpha-Adrenergic Dimitris Start: 10-22-2024 take 1 capsule by mouth once daily tamsulosin 0.4 mg Cap 0.4 mg = 1 cap(s), Oral, Daily, # 90 cap(s), Refills(s) 1, Pharmacy: [facility], 178, cm, 09/10/24 13:01:00 EDT, Height/Length Dosing, 80.1, kg, 09/10/24 13:01:00 EDT, Weight Dosing Start Date: 10/22/24 Status: Ordered Start: 10-14-2014 take 1 capsule by [facility] once daily tamsulosin 0.4 mg Cap 0.4 mg = 1 cap(s), Oral, Daily, # 90 cap(s), Refills(s) 0, Pharmacy: [facility], 178, cm, 06/11/24 12:53:00 EDT, Height/Length Dosing, 82, kg, 06/11/24 12:56:00 EDT, Weight Dosing Start Date: 06/27/24 Status: Ordered Comment on above: Take 1 capsule by [facility] daily at bedtime. tiZANidine 4 mg oral tablet (5 sources) Central alpha-2 Adrenergic Agonist Start: 07-24-20 take 1 tablet by mouth every eight hours tiZANidine 4 mg Tab 4 mg = 1 tab(s), Oral, q8hr, # 90 tab(s), Refills(s) 1, Pharmacy: [facility], 178, cm, 09/10/24 13:01:00 EDT, Height/Length Dosing, 80.1, kg, 09/10/24 13:01:00 EDT, Weight Dosing Start Date: 10/15/24 Status: Ordered triamcinolone acetonide 1 mg/ml topical cream (14 sources) Corticosteroid Start: 06-16-20 Start: 06-16-2023 Triamcinolone Acetonide 0.1 % 1 application Externally BID for 14 days Jun, Active Turmeric Curcumin 500 MG (14 sources) Turmeric Curcumi n 500 MG as directed Orally Active turmeric extract 500 mg oral capsule (11 sources) Start: 03-06-2024 take 1 capsule by mouth once daily as needed Turmeric 500 mg oral capsule 500 mg = 1 cap(s), Oral, Daily, PRN Prophylaxis, Refills(s) 0 Start Date: 03/06/24 Status: Ordered ubidecarenone 200 mg oral capsule (14 sources) vitamin B12 (12 sources) Vitamin B12 Start: 03-06-2024 take 50 ug by mouth once daily as needed Vitamin B12 50 mcg, Oral, Daily, PRN Prophylaxis, Refills(s) 0 Start Date: 03/06/24 Status: Ordered Start: 03-06-2024 Vitamin B12 Re fills(s) 0 [...] Daily, Refills(s) 0, Blood Thinner Start Date: 08/07/24 Status: Ordered Start: 12-01-2023 [...] orally Active take 1 tablet by alyssa every other day Warfarin 5mg 5 mg [...] daily dabigatran etexilate 150 mg oral capsule (8 sources) Start: 10-09-2014 take 1 capsule by mouth twice daily dabigatran etexilate (PRADAXA) 150 mg cap Indications: Atrial fibrillation (HCC) Take 1 capsule by mouth twice daily. 180 capsule 3 10/09/2014 Active Comment on above: Take 1 capsule by mo [facility] twice daily. Problems Problem Classification Problem Date Documented Date Episodic/Chronic Abdominal hernia (4 sources) Inguinal hernia; Translations: [Unilateral inguinal hernia, without obstruction or gangrene, not specified as recurrent] Onset: 08-28-2024 Episodic Allergic reactions (1 source) Dermatitis, unspecified Episodic Cardiac dysrhythmias (20 sources) Atrial fibrillation; Translations: [Unspecified atrial fibrillation] Onset: 08-22-2014 Chronic Coronary atherosclerosis and other heart disease (1 source) Coronary atherosclerosis; Translations: [Atherosclerotic heart disease of [place] coronary artery without angina pectoris] Onset: 08-28-2024 Chronic Diabetes mellitus without complication (20 sources) Type 2 diabetes mellitus; Translations: [Type 2 diabetes mellitus without complications] Chronic Disorders of lipid metabolism (12 sources) Hyperlipidemia; Translations: [Hyperlipidemia, unspecified] 03-02-2006 Chronic E Codes: Fall (10 sources) Fall in home 03-20-2024 Fluid and electrolyte disorders (11 sources) Hypo-osmolality and hyponatremia; Translations: [Hyponatremia] Episodic [...] sources) Laceration of head 03-20-2024 Episodic Osteoarthritis (13 sources) Degenerative joint disease involving multiple joints; Translations: [Polyosteoarthritis, unspecified] Onset: 09-12-2012 09-12-2012 Chronic Other aftercare (14 sources) Long-term current use of anticoagulant; Translations: [intermediate project manager (current) use of anticoagulants] Episodic Other aftercare (3 sources) intermediate project manager (current) use of anticoagulants Episodic Other and unspecified benign neoplasm (10 sources) Melanocytic nevus of skin 03-08-2024 Episodic Other connective tissue disease (11 sources) Triggering of digit 02-02-2024 Episodic Other connective tissue disease (1 source) Acquired trigger finger of right little finger; Translations: [Trigger finger, right little finger] Onset: 03-20-2024 Episodic Other connective tissue disease (1 source) Pain of bilateral upper limbs; Translations: [Pain in right arm] 09-28-2024 Episodic Other connective tissue disease (2 sources) Pain in right hand; Translations: [Pain in right hand] 10-03-2024 Episodic Other connective tissue disease (2 sources) Muscle weakness of upper limb; Translations: [Other symptoms and signs involving the musculoskeletal system] 10-01-2024 Episodic Other ear and sense organ disorders (20 sources) Hearing loss; Translations: [Unspecified hearing loss, unspecified ear] 05-03-2024 Chronic Other ear and sense organ disorders (1 source) Unspecified hearing loss, unspecified ear Chronic Other male genital disorders (5 sources) Impotence 02-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 Chronic Other male genital disorders (6 sources) Erectile dysfunction co-occurrent and due to arterial insufficiency 05-03-2024 Chronic Other nervous system disorders (12 sources) Carpal tunnel syndrome; Translations: [Carpal tunnel syndrome, unspecified upper limb] Onset: 08-23-2007 03-06-2008 Chronic Other nervous system disorders (1 source) Neuropathy; Translations: [Polyneuropathy, unspecified] Onset: 03-25-2010 03-25-2010 Chronic Other nervous system disorders (1 source) Bilateral carpal tunnel syndrome; Translations: [Carpal tunnel syndrome, bilateral upper limbs] 09-28-2024 Chronic Other nutritional; endocrine; and metabolic disorders (10 sources) Overweight in adulthood with body mass index of 25 or more but less than 30 03-08-2024 Episodic Other screening for suspected conditions (not mental disorders or infectious disease) (1 source) Encounter for screening for malignant neoplasm of prostate Episodic Otitis media and related conditions (3 sources) Serous otitis media 07-03-2024 Episodic Peripheral and visceral atherosclerosis (12 sources) Arteriosclerotic vascular disease 12-01-2023 Chronic Spondylosis; intervertebral disc disorders; other back problems (1 source) Intervertebral disc disorder of cervical region with myelopathy; Translations: [Cervical disc disorder with myelopathy, unspecified cervical region] Onset: 2011 11-09-2021 Chronic Spondylosis; intervertebral disc disorders; other back problems (3 sources) Spasm of back muscles 07-24-2024 Episodic Syncope (14 sources) Syncope and collapse; Translations: [Syncope] Onset: 04-20-2024 Episodic Thyroid disorders (19 sources) Hypothyroidism; Translations: [Hypothyroidism, unspecified] Chronic Unclassified (1 source) Encounter for screening for malignant neoplasm of prostate; Translations: [Encounter for screening for malignant neoplasm of prostate] Onset: 11-02-2023 Unclassified (1 source) intermediate project manager (current) use of anticoagulants; Translations: [FDC (current) use of anticoagulants] Onset: 06-16-2023 Results Test Name Value Interpretation Reference Range [facility] CAPILLARY GLUCOSE POCon 11-19-2024 Glucose [Mass/Vol] 78 mg/dL 55 - 99 mg/dL [facility] Comment on above: Cleaned Meter Original Ordering Provider: DO Axel Hernández [facility] BMPon 11-12-2024 Anion gap [Moles/Vol] 7 mmol/L Normal 6-16 [facility] Comment on above: Performed By: #### [id number] #### [facility] [address] [place] [address] Calcium [Mass/Vol] 8.8 mg/dL Low 8.9-11.1 [facility] Comment on above: Performed By: #### [id number] #### [facility] [address] [place] [address] Chloride [Moles/Vol] 97 mmol/L Low 101-111 [facility] Comment on above: Performed By: #### 2 [id number] #### [facility] [address] [place] [address] CO2 [Moles/Vol] 28 mmol/L Normal 21-31 [facility] Comment on above: Performed By: #### 2 [id number] #### [facility] [address] [place] [address] Creatinine [Mass/Vol] 0.9 mg/dL Normal 0.5-1.3 [facility] Comment on above: Performed By: #### 2 [id number] #### [facility] [address] [place] [address] Glucose [Mass/Vol] 106 mg/dL Normal 55-199 [facility] Comment on above: Performed By: #### 2 [id number] #### [facility] [address] [place] [address] Potassium [Moles/Vol] 4.4 mmol/L Normal 3.5-5.3 [facility] Comment on above: Performed By: #### 2 [id number] #### [facility] [address] [place] [address] Sodium [Moles/Vol] 128 mmol/L Low 135-145 [facility] Comment on above: Performed By: #### 2 [id number] #### [facility] [address] [place] [address] Urea nitrogen [Mass/Vol] 12 mg/dL Normal 5-21 [facility] Comment on above: Performed By: #### 2 [id number] #### [facility] [address] [place] [address] Urea nitrogen/Creatinine [Mass ratio] 13 No Units Normal 10-20 [facility] Comment on above: Performed By: #### 2 [id number] #### [facility] [address] [place] [address] CHEMISTRYOrdered By: SYSTEM SYSTEM on 11-12-2024 Anion gap [Moles/Vol] 7 mmol/L Normal 6 - 16 mEq/L [facility] Calcium [Mass/Vol] 8.8 mg/dL Low 8.9 - 11.1 mg/dL [facility] Chloride [Moles/Vol] 97 mmol/L Low 101 - 111 mmol/ L [facility] CO2 [Moles/Vol] 28 mmol/L Normal 21 - 31 mmol/L [facility] Creatinine [Mass/Vol] 0.9 mg/dL Normal 0.5 - 1.3 mg/dL [facility] eGFR 85 mL/min/1.73 m2 Normal >=59mL/min /1.73 m2 [facility] Glucose [Mass/Vol] 106 mg/dL Normal 55 - 199 mg/dL Re misol [facility] Potassium [Moles/Vol] 4.4 mmol/L Normal 3.5 - 5.3 mmol/L [facility] Sodium [Moles/Vol] 128 mmol/L Low 135 - 145 mmol/L [facility] TSH Qn 2.17 m[IU]/L Normal 0.34 - 5.60 mcIU/mL [facility] Urea nitrogen [Mass/Vol] 12 mg/dL Normal 5 - 21 mg/dL [facility] Urea nitrogen/Creatinine [Mass ratio] 13 mg/mg Normal 10 - 20 [facility] CHEMISTRYOrdered By: Kirstin Robert on 11-12-2024 HbA1c (Bld) [Mass fraction] 5.4 % Normal <=5.9% [facility] ChemAutoSS [id number] 11-12-2024 HbA1c (Bld) [Mass fraction] 5.4 % Normal <=5.9 [facility] Comment on above: Performed By: #### [id number] #### [facility] [address] [place] [address] Inpatient Patient Summaryon 11-12-2024 Inpatient Patient Summary Inpatient Patient Summary [facility] [address] [place], [place] [address] [facility] Clinical Discharge Instructions PERSON INFORMATION Name: DARIEL ZABALA [facility]#:[id number] PHYSICIANS Admitting Physician: Axel Hernández DO Attending Physician: Axel Hernández DO PCP: Kylah Medina MD Discharge Diagnosis: Carpal tunnel syndrome on left Comment: PATIENT EDUCATION INFORMATION Instructions: Catherine Gonzalez Carpal Tunnel Release Instructions (Custom) (CUSTOM) Medication Leaflets: Follow up: With: Address: When: Axel Hernández [address] [place] [address] [employer] (1) Comments: Keep scheduled appointment Type Location Start [facility] 11/19/2024 2:15 PM 11/19/2024 2:45 PM Confirmed Cardiology Follow Up (FT) [facility] 12/12/2024 10:15 AM 12/12/2024 10:30 AM Confirmed Medicare Wellness Subsequent [facility] Jackie 05/02/2025 8:00 AM 05/02/2025 9:00 AM Confirmed MEDICATION LIST Medications to Continue Taking That Have Changed Other Medications START: cyanocobalamin (Vitamin B12) 50 Microgram By Mouth every day as needed Prophylaxis. START: pravastatin (pravastatin 40 mg Tab) 1 Tablets By Mouth every day. Refills: 3. START: Turmeric (Turmeric 500 mg oral capsule) 1 Capsules By Mouth every day as needed Prophylaxis. START: ubiquinone (CoQ10) as needed Prophylaxis. Medications to Continue with No Changes Other Medications atenolol (atenolol 25 mg Tab) take 1/2 tab daily. Refills: 1. cholecalciferol (D3) Oral Daily- patient states he takes 500 once a day. finasteride (finasteride 5 mg Tab) 1 Tablets By Mouth every day. Refills: 1. fluticasone nasal (fluticasone Nasal 0.05 mg/inh [place]) USE 1 SPRAY IN EACH NOSTRIL TWICE A DAY. Refills: 1. gabapentin (gabapentin 300 mg Cap) 1 Capsules By Mouth every day. Refills: 1. glimepiride (glimepiride 2 mg Tab) TAKE 1 TABLET DAILY. Refills: 0. levothyroxine (Synthroid 25 mcg(0.025 mg) Tab) TAKE 1 TABLET DAILY ON AN EMPTY STOMACH. Refills: 0. omeprazole (omeprazole 40 mg Cap-DR) 1 Capsules By Mouth every day. Refills: 1. sildenafil (sildenafil 100 mg Tab) 1 Tablets By Mouth every day as needed for erectile dysfunction. 1 hour before sexual activity. Refills: 0. sodium chloride (Sodium Chloride 1 g oral tablet) 1 gram orally daily. Refills: 0. tamsulosin (tamsulosin 0.4 mg Cap) 1 Capsules By Mouth every day. Refills: 1. warfarin (Jantoven 5 mg oral tablet) 1 Tablets By Mouth every day. Comment: Normal [facility] Outpatient Surgery Discharge Instructionon 11-12-2024 Outpatient Surgery Discharge Instruction Outpatient Surgery Discharge Instruction [place] [id number] Patient Discharge Instructions PERSON INFORMATION Name: DARIEL ZABALA Date of : 1940 Current Date: 11/12/2024 12:08:22 PHYSICIANS Admitting Physician: Axel Hernández DO Discharge Diagnosis: Carpal tunnel syndrome on left DARIEL ZABALA has been given the following list of follow-up instructions, prescriptions, and patient education materials: PATIENT FOLLOW-UP INFORMATION Diet: Regular, Drink liquids and eat a light meal Discharge Activity: Ambulate as tolerated, Arrange for a responsible adult supervision for 24 hours, Expect mild pain, Expect minimal amount of drainage and/or bleeding, Activity as tolerated, Do not lift more than 5 lbs [...] Your Dressing In 2 Days Additional Instructions: Tylenol OTC as needed for pain. Resume the blood thinner the day after the surgery. IF UNABLE TO CONTACT YOUR PHYSICIAN [...] Follow up: With: Address: When: Axel Hernández [address] [place], [place] [id number] Business (1) Comments: Keep scheduled appointment Type Location Start [facility] 11/19/2024 2:15 PM 11/19/2024 2:45 PM Confirmed Cardiology Follow Up (FT) [facility] 12/12/2024 10:15 AM 12/12/2024 10:30 AM Confirmed Medicare Wellness Subsequent [facility] [place] 05/02/2025 8:00 AM 05/02/2025 9:00 AM Confirmed Pharmacy Information: You may receive a survey from Nahum Saldivar asking you to rate your care experience. Your feedback is important and will help us understand what we do well and how we can improve the quality of care we provide to you, your loved ones and our community. It???s an honor to serve you. Thank you for choosing [facility] HERE ARE THE MEDICATION CHANGES THAT OCCURRED DURING YOUR HOSPITAL STAY Medications to Continue Taking That Have Changed Other Medications START: cyanocobalamin (Vitamin B12) 50 Microgram By Mouth every day as needed Prophylaxis. START: pravastatin (pravastatin 40 mg Tab) 1 Tablets By Mouth every day. Refills: 3. START: Turmeric (Turmeric 500 mg oral capsule) 1 Capsules By Mouth every day as needed Prophylaxis. START: ubiquinone (CoQ10) as needed Prophylaxis. Medications to Continue with No Changes Other Medications atenolol (atenolol 25 mg Tab) take 1/2 tab daily. Refills: 1. cholecalciferol (D3) Oral Daily- patient states he takes 500 once a day. finasteride (finasteride 5 mg Tab) 1 Tablets By Mouth every day. Refills: 1. fluticasone nasal (fluticasone Nasal 0.05 mg/inh [place]) USE 1 SPRAY IN EACH NOSTRIL TWICE A DAY. Refills: 1. gabapentin (gabapentin 300 mg Cap) 1 Capsules By Mouth every day. Refills: 1. glimepiride (glimepiride 2 mg Tab) TAKE 1 TABLET DAILY. Refills: 0. levothyroxine (Synthroid 25 mcg(0.025 mg) Tab) TAKE 1 TABLET DAILY ON AN EMPTY STOMACH. Refills: 0. omeprazole (omeprazole 40 mg Cap-DR) 1 Capsules By Mouth every day. Refills: 1. sildenafil (sildenafil 100 mg Tab) 1 Tablets By Mouth every day as needed for erectile dysfunction. 1 hour before sexual activity. Refills: 0. sodium chloride (Sodium Chloride 1 g oral tablet) 1 gram orally daily. Refills: 0. tamsulosin (tamsulosin 0.4 mg Cap) 1 Capsules By Mouth every day. Refills: 1. warfarin (Jantoven 5 mg oral tablet) 1 Tablets By Mouth every day. PATIENT EDUCATION INFORMATION Instructions: [place] [place] [facility] CARPAL TUNNEL RELEASE INSTRUCTIONS Post-Operative Week One You will be in a soft dressing from mid palm to forearm. Please remove dressing two days after surgery. At that point, clean daily with peroxide or betadine and place daily fresh bandaids. Cover for showers with waterproof bandaid, op site occlusive dressing (more content not included)... Normal [facility] TSH With T4fr Reflexon 11-12 TSH Qn 2.17 m[IU]/L Normal 0.34-5.60 [facility] Comment on above: Performed By: #### 1 [id number] #### [facility] [address] [place] [address] eGFRon 11-12-2024 eGFR 85 mL/min/1.73 m2 Normal >=59 [facility] Comment on above: Performed By: #### 1 [id number] #### [facility] [address] [place] [address] Ambulatory Visit Summaryon 1 01-02-2024 Ambulatory Visit Summary Ambulatory Visit Summary DARIEL ZABALA :1940 Visit Date:11/01/2024 Ambulatory Visit Instructions Your Diagnosis ASCVD (arteriosclerotic cardiovascular disease) DM type 2 causing vascular disease Longstanding persistent atrial fibrillation Back spasm Erectile dysfunction due to arterial insufficiency Hypothyroid Hyponatremia BMI 25.0-25.9,adult Over weight Nonsmoker Your Care Team Attending Physician - Kylah Medina MD Primary Care Physician - Kylah Medina MD This Is Your Medications List Turmeric (Turmeric 500 mg oral capsule) atenolol (atenolol 25 mg Tab) cholecalciferol (D3) cyanocobalamin (Vitamin B12) finasteride (finasteride 5 mg Tab) fluticasone nasal (fluticasone Nasal 0.05 mg/inh [place]) gabapentin (gabapentin 300 mg Cap) glimepiride (glimepiride 2 mg Tab) levothyroxine (Synthroid 25 mcg(0.025 mg) Tab) omeprazole (omeprazole 40 mg Cap-DR) pravastatin (pravastatin 40 mg Tab) sildenafil (sildenafil 100 mg Tab) sodium chloride (Sodium Chloride 1 g oral tablet) tamsulosin (tamsulosin 0.4 mg Cap) ubiquinone (CoQ10) warfarin (Jantoven 5 mg oral tablet) Procedures Performed Carpal tunnel release (03/26/2024), Carpal tunnel release, Release of trigger finger, Surgery. Discharge Vitals Temperature (Temporal Artery) 36.3 ???C Heart Rate (Peripheral) 72 Respiratory Rate 16 Blood Pressure 116/70 Height 178.6 cm Height 70 in Weight 81.3 kg Weight 179.236 lb BMI 25.49 What to do next Scheduled Follow-Up Appointments Tuesday 9:20 AM EST With: Where: [address] [address]- Tuesday 2:15 PM EST With: Where: [facility] Tuesday 10:15 AM EST With: Dixon Dubose PA-C Where: [facility]iology Clinic 2024 8:00 AM EDT With: Where: [address] [address]- Medications What How Much When Instructions Unchanged atenolol (atenolol 25 mg Tab) See instructions take 1/ 2 tab daily Unchanged cholecalciferol (D3) See instructions Oral Daily- patient states he takes 500 once a day Unchanged cyanocobalamin (Vitamin B12) 50 Microgram By Mouth Every day as needed for Prophylaxis Unchanged finasteride (finasteride 5 mg Tab) 1 Tablets By Mouth Every day Unchanged fluticasone nasal (fluticasone Nasal 0.05 mg/ inh [place]) See instructions USE 1 SPRAY IN EACH [place] TWICE A DAY Unchanged gabapentin (gabapentin 300 mg Cap) 1 Capsules By Mouth Every day Unchanged glimepiride (glimepiride 2 mg Tab) See instructions TAKE 1 TABLET DAILY Unchanged levothyroxine (Synthroid 25 mcg(0.025 mg) Tab) See instructions TAKE 1 TABLET DAILY ON AN EMPTY STOMACH Unchanged omeprazole (omeprazole 40 mg Cap-DR) 1 [...] Unchanged Turmeric (Turmeric 500 mg oral capsule) 1 Capsules By Mouth Every day as needed for Prophylaxis Unchanged ubiquinone (CoQ10) See instructions Unchanged warfarin (Novtoven 5 mg oral tablet) 1 Tablets By Mouth Every day Allergies No Known Medication Allergies Problems Ongoing - Any problem that you are currently receiving treatment for. ASCVD (arteriosclerotic cardiovascular disease) Back spasm Carpal tunnel syndrome, left DM type 2 causing vascular disease Encounter for surveillance of abnormal nevi Erectile dysfunction due to arterial insufficiency Fall at home Hard of hearing Hyperlipidemia Hyponatremia Hypothyroid Longstanding persistent atrial fibrillation Osteoarthritis Right [...] choosing us for your care. [facility] Family Medicine Office/Clini c Noteon 11-01-2024 Family Medicine Office/Clinic Note Family Medicine Office/Clinic Note Chief Complaint Pre-surgical assessment for carpal tunnel surgery and review of blood work abnormalities. HPI Staff Dariel is an 84 year old male presenting for 6 month follow up DM, a fib, ASCVD Do you have any of the following symptoms? Foot Exam: one Eye Exam: due Last A1C: Hgb A1C %: 5.6 % (12/01/23 14:31:00) Statin: pravastatin 40mg questions/concerns: having carpal tunnel surgery left Nov 19 w/ [facility] History of Present Illness The patient is an 84-year-old male presenting with a need for pre-surgical assessment prior to carpal tunnel surgery scheduled for November 19. It was noted that the patient's recent laboratory results indicate hyponatremia. The patient reports a lapse in taking the prescribed sodium supplements due to running out of medication but has resumed following a newly issued prescription. Additionally, the patient has a known diagnosis of type 2 diabetes mellitus, which is currently well-managed as evidenced by recent laboratory values indicating blood sugar levels within normal limits. The patient maintains a diet that includes pastries and baked goods, but current blood sugar control remains satisfactory. Thyroid function assessment is also warranted given the patient's history of hypothyroidism. The patient is being monitored for additional blood panels, including thyroid and blood sugar assessments, ahead of their upcoming surgery. d Review of Systems PHQ Score Initial Depression Screen Score: 6 SCORE Detailed Depression Screen Score: 5 Total Depression Screen Score: 11 - Endocrine: Reports recent adherence lapse with salt medication; no symptoms of thyroid dysfunction currently reported. - Neurological: Denies issues outside of scheduled carpal tunnel surgery for the left hand. - Laboratory Findings: Reports laboratory-confirme d normal blood sugar levels. Physical Exam Vitals & Measurements T: 36.3 ???C(Temporal Artery) HR: 72(Peripheral) RR: 16 BP: 116/70 SpO2: 100% HT: 70 in HT: 178.6 cm WT: 81.3 kg WT: 179.236 lb BMI: 25.49 General: alert, no acute distress ENMT: oral mucosa moist Cardiovascular: Regular rate and rhythm, normal peripheral perfusion Respiratory: Lungs clear to auscultation, respirations non labored Extremities: no deformity, no trauma Neurological: oriented x 4, level of consciousness appropriate for age, CN II-XII intact, motor strength equal & normal bilaterally, speech normal Abdomen: Soft, Non-tender, Non-distended, + Bowel sounds Assessment/Plan 1. ASCVD (arteriosclerotic cardiovascular disease) (I25.10: Atherosclerotic heart disease of [place] coronary artery without angina pectoris) Denies CP. Continue on meds. Ordered: Basic Metabolic Panel Body Mass Index (BMI) documented 3008F Current tobacco non-user 1036F Depression Screening Negative 3352F HgbA1c Influenza immunization administered or previously received 4274F Most recent diastolic blood pressure <80 mm Hg 3078F Patient screen for fall risk: no falls in last year or 1 fall with no injury in last year 1101F Systolic BP <130 mm Hg (Most Recent) 3074F TSH With T4fr Reflex 2. 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) Diabetes management continues effectively with current dietary intake not adversely affecting glycemic control. Blood glucose monitoring will continue, ensuring levels remain stable pre-operatively. Ordered: Basic Metabolic Panel Body Mass Index (BMI) documented 3008F Current tobacco non-user 1036F Depression Screening Negative 3352F HgbA1c Influenza immunization administered or previously received 4274F Most recent diastolic blood pressure <80 mm Hg 3078F Patient screen for fall risk: no falls in last year or 1 fall with no injury in last year 1101F Systolic BP <130 mm Hg (Most Recent) 3074F TSH With T4fr Reflex 3. Longstanding persistent atrial fibrillation (I48.11: Longstanding persistent atrial fibrillation) Stable. On Anticoagulation Ordered: Basic Metabolic Panel Body Mass Index (BMI) documented 3008F Current tobacco non-user 1036F Depression Screening Negative 3352F HgbA1c Influenza immunization administered or previously received 4274F Most recent diastolic blood pressure <80 mm Hg 3078F Patient screen for fall risk: no falls in last year or 1 fall with no injury in last year 1101F Systolic BP <130 mm Hg (Most Recent) 3074F TSH With T4fr Reflex 4. Back spasm (M62.830: Muscle spasm of back) No issues today. Ordered: Basic Metabolic Panel Body Mass Index (BMI) documented 3008F Current tobacco non-user 1036F Depression Screening Negative 3352F HgbA1c Influenza immunization administered or previously received 4274F Most recent diastolic blood pressure <80 mm Hg 3078F Patient screen for fall risk: no falls in last year or 1 fall with no injury in last year 1101F Systolic BP <130 mm Hg (Most Recent) 3074 (more content not included)... Normal [facility] Comment on above: Result Comment: Elec tronically Signed By: Adam COHN, Kylah Cole\.br\Date and Time Signed: 11/01/24 09:42 EST BMPon 10-30-2024 Anion gap [Moles/Vol] 11 mmol/L Normal 6-16 [facility] Comment on above: Performed By: #### 2 [id number] #### [facility] [address] [place] [address] Calcium [Mass/Vol] 9.0 mg/dL Normal 8.9-11.1 [facility] Comment on above: Performed By: #### 2 [id number] #### [facility] [address] [place] [address] Chloride [Moles/Vol] 96 mmol/L Low 101-111 [facility] Comment on above: Performed By: #### 2 [id number] #### [facility] [address] [place] [address] CO2 [Moles/Vol] 27 mmol/L Normal 21-31 [facility] Comment on above: Performed By: #### 2 [id number] #### [facility] [address] [place] [address] Creatinine [Mass/Vol] 0.9 mg/dL Normal 0.5-1.3 [facility] Comment on above: Performed By: #### 2 [id number] #### [facility] [address] [place] [address] Glucose [Mass/Vol] 87 mg/dL Normal 55-199 [facility] Comment on above: Performed By: #### 2 [id number] #### [facility] [address] [place] [address] Potassium [Moles/Vol] 4.7 mmol/L Normal 3.5-5.3 [facility] Comment on above: Performed By: #### 2 [id number] #### [facility] [address] [place] [address] Sodium [Moles/Vol] 129 mmol/L Low 135-145 [facility] Comment on above: Performed By: #### 2 [id number] #### [facility] [address] [place] [address] Urea nitrogen [Mass/Vol] 15 mg/dL Normal 5-21 [facility] Comment on above: Performed By: #### 2 [id number] #### [facility] [address] [place] [address] Urea nitrogen/Creatinine [Mass ratio] 17 No Units Normal 10-20 [facility] Comment on above: Performed By: #### 2 [id number] #### [facility] [address] [place] [address] CBC w/ Auto Diffon 4 Basophils/100 WBC (Bld) 0.9 % Normal 0.0-2.0 [facility] Comment on above: Performed By: #### 2 [id number] #### [facility] [address] [place] [address] Basophils/Leukocytes Auto (Bld) [Pure # fraction] 0.0 E9/L Normal 0.0-0.2 [facility] Comment on above: Performed By: #### 2 [id number] #### [facility] [address] [place] [address] Eosinophils (Bld) [#/Vol] 0.2 E9/L Normal 0.0-0.5 [facility] Comment on above: Performed By: #### 2 [id number] #### [facility] [address] [place] [address] Eosinophils/100 WBC (Bld) 3.6 % Normal 0.0-8.0 [facility] Comment on above: Performed By: #### 2 [id number] #### [facility] [address] [place] [address] Erythrocyte distribution width (RBC) [Ratio] 13.4 % Normal 10.9-14.2 [facility] Comment on above: Performed By: #### 2 [id number] #### [facility] [address] [place] [address] Hematocrit (Bld) [Volume fraction] 36.3 % Low 37.7-49.0 [facility] Comment on above: Performed By: #### 2 [id number] #### [facility] [address] [place] [address] Hemoglobin (Bld) [Mass/Vol] 12.8 g/dL Low 13.5-17.5 [facility] Comment on above: Performed By: #### 2 [id number] #### [facility] [address] [place] [address] Lymphocytes (Bld) [#/Vol] 1.5 E9/L Normal 1.0-4.0 [facility] Comment on above: Performed By: #### 2 [id number] #### [facility] [address] [place] [address] Lymphocytes/100 WBC (Bld) 30.1 % Normal 14.0-50.0 [facility] Comment on above: Performed By: #### 2 [id number] #### [facility] [address] [place] [address] MCH (RBC) [Entitic mass] 31.7 pg Normal 27.0-34.0 [facility] Comment on above: Performed By: #### 2 [id number] #### [facility] [address] [place] [address] MCHC (RBC) [Mass/Vol] 35.2 g/dL Normal 31.4-36.0 [facility] Comment on above: Performed By: #### 2 [id number] #### [facility] [address] [place] [address] MCV (RBC) [Entitic vol] 90.1 fL Normal 80.0-100.0 [facility] Comment on above: Performed By: #### 2 [id number] #### [facility] [address] [place] [address] Monocytes (Bld) [#/Vol] 0.4 E9/L Normal 0.2-1.0 [facility] Comment on above: Performed By: #### 2 [id number] #### [facility] [address] [place] [address] Neutrophils (Bld) [#/Vol] 2.9 E9/L Normal 2.0-7.5 [facility] Comment on above: Performed By: #### 2 [id number] #### [facility] [address] [place] [address] Neutrophils/100 WBC (Bld) 56.9 % Normal 36.0-75.0 [facility] Comment on above: Performed By: #### 2 [id number] #### [facility] [address] [place] [address] Platelet 175.0 E9/L Normal 150.0-500.0 [facility] Comment on above: Performed By: #### 2 [id number] #### [facility] [address] [place] [address] Platelet mean volume (Bld) [Entitic vol] 9.1 fL Normal 6.4-10.8 [facility] Comment on above: Performed By: #### 2 [id number] #### [facility] [address] [place] [address] RBC (Bld) [#/Vol] 4.0 E12/L Low 4.3-5.9 [facility] Comment on above: Performed By: #### 2 [id number] #### [facility] [address] [place] [address] WBC corrected for nucl RBC Auto (Bld) [#/Vol] 5.1 E9/L Normal 4.0-11.0 [facility] Comment on above: Performed By: #### 2 [id number] #### [facility] [address] [place] [address] CHEMISTRYOrdered By: SYSTEM SYSTEM on 10-30-2024 Anion gap [Moles/Vol] 11 mmol/L Normal 6 - 16 mEq/L Rem[facility] Chem Calcium [Mass/Vol] 9.0 mg/dL Normal 8.9 - 11.1 mg/dL [facility] Chloride [Moles/Vol] 96 mmol/L Low 101 - 111 mmol/ L [facility] CO2 [Moles/Vol] 27 mmol/L Normal 21 - 31 mmol/L Remis ol Chem Creatinine [Mass/Vol] 0.9 mg/dL Normal 0.5 - 1.3 mg/dL [facility] eGFR 85 mL/min/1.73 m2 Normal >=59mL/min /1.73 m2 [facility] Glucose [Mass/Vol] 87 mg/dL Normal 55 - 199 mg/dL Re misol Chem Potassium [Moles/Vol] 4.7 mmol/L Normal 3.5 - 5.3 mmol/L [facility] Sodium [Moles/Vol] 129 mmol/L Low 135 - 145 mmol/L [facility] Urea nitrogen [Mass/Vol] 15 mg/dL Normal 5 - 21 mg/dL [facility] Urea nitrogen/Creatinine [Mass ratio] 17 mg/mg Normal 10 - 20 [facility] HEMATOLOGYOrdered By: SYSTEM SYSTEM on 10-30-2024 Basophils/100 WBC (Bld) 0.9 % Normal 0.0 - 2.0 % Remisol Heme Basophils/Leukocytes Auto (Bld) [Pure # fraction] 0.0 E9/L Normal 0.0 - 0.2 E9/L [facility] Eosinophils (Bld) [#/Vol] 0.2 E9/L Normal 0.0 - 0.5 E9/L [facility] Eosinophils/100 WBC (Bld) 3.6 % Normal 0.0 - 8.0 % [facility] Erythrocyte distribution width (RBC) [Ratio] 13.4 % Normal 10.9 - 14.2 % [facility] Hematocrit (Bld) [Volume fraction] 36.3 % Low 37.7 - 49.0 % [facility] Hemoglobin (Bld) [Mass/Vol] 12.8 g/dL Low 13.5 - 17.5 gm/dL [facility] Lymphocytes (Bld) [#/Vol] 1.5 E9/L Normal 1.0 - 4.0 E9/L [facility] Lymphocytes/100 WBC (Bld) 30.1 % Normal 14.0 - 50.0 % [facility] MCH (RBC) [Entitic mass] 31.7 pg Normal 27.0 - 34.0 pg [facility]e MCHC (RBC) [Mass/Vol] 35.2 g/dL Normal 31.4 - 36.0 gm/dL [facility] MCV (RBC) [Entitic vol] 90.1 fL Normal 80.0 - 100.0 fL [facility] Monocytes (Bld) [#/Vol] 0.4 E9/L Normal 0.2 - 1.0 E9/L [facility] Monocytes/100 WBC (Bld) 8.5 % Normal 4.0 - 14.0 % [facility] Neutrophils (Bld) [#/Vol] 2.9 E9/L Normal 2.0 - 7.5 E9/L [facility] Neutrophils/100 WBC (Bld) 56.9 % Normal 36.0 - 75.0 % [facility] Platelet 175.0 E9/L Normal 150.0 - 500.0 E9/L [facility] Platelet mean volume (Bld) [Entitic vol] 9.1 fL Normal 6.4 - 10.8 fL [facility]e RBC (Bld) [#/Vol] 4.0 E12/L Low 4.3 - 5.9 E12/L Re misol Heme WBC corrected for nucl RBC Auto (Bld) [#/Vol] 5.1 E9/L Normal 4.0 - 11.0 E9/L Rem[facility]e eGFRon 10-30-2024 eGFR 85 mL/min/1.73 m2 Normal >=59 [facility] Comment on above: Performed By: #### 1 [id number] #### [facility] [address] [place] [address] Family Medicine Office/Clini c Noteon 09-10-2024 Family Medicine Office/Clinic Note Family Medicine Office/Clinic Note HPI Staff Dariel is an 84 year old male presenting to discuss getting meloxicam rxed for his arthritis Has had from previous drShanna and says he cannot be without it He did receive it from mail away History of Present Illness Patient presents to discuss NSAIDs. Patient states has been on NSAIDs for a while. Patient states that he was continuing to take NSAIDs however his last fill was several months ago. Patient has been struggling with back pain for the last several months. When discussing with him what the meloxicam was used for he then realized he had not been taking it and that is why his back pain is improved. Review of Systems PHQ Score Initial Depression Screen Score: 0 SCORE Physical Exam Vitals & Measurements T: 36.3 ???C(Temporal Artery) HR: 64(Peripheral) RR: 16 BP: 112/70 SpO2: 100% HT: 70 in HT: 178 cm WT: 80.1 kg WT: 176.22 lb BMI: 25.28 Assessment/Plan 1. Osteoarthritis (M19.90: Unspecified osteoarthritis, unspecified site) Improved significantly since starting back on the meloxicam. Will send another prescription. Ordered: Body Mass Index (BMI) documented 3008F Current tobacco non-user 1036F Depression Screening Negative 3352F Most recent diastolic blood pressure <80 mm Hg 3078F Patient screen for fall risk: no falls in last year or 1 fall with no injury in last year 1101F Systolic BP <130 mm Hg (Most Recent) 3074F 2. BMI 25.0-25.9,adult (Z68.25: Body mass index [BMI] 25.0-25.9, adult) BMI education added. Ordered: Body Mass Index (BMI) documented 3008F Current tobacco non-user 1036F Depression Screening Negative 3352F Most recent diastolic blood pressure <80 mm Hg 3078F Patient screen for fall risk: no falls in last year or 1 fall with no injury in last year 1101F Systolic BP <130 mm Hg (Most Recent) 3074F 3. Overweight (E66.3: Overweight) Diet and exercise advised Ordered: Body Mass Index (BMI) documented 3008F Current tobacco non-user 1036F Depression Screening Negative 3352F Most recent diastolic blood pressure <80 mm Hg 3078F Patient screen for fall risk: no falls in last year or 1 fall with no injury in last year 1101F Systolic BP <130 mm Hg (Most Recent) 3074F 4. Nonsmoker (Z78.9: Other specified health status) Please continue not to smoke. Ordered: Body Mass Index (BMI) documented 3008F Current tobacco non-user 1036F Depression Screening Negative 3352F Most recent diastolic blood pressure <80 mm Hg 3078F Patient screen for fall risk: no falls in last year or 1 fall with no injury in last year 1101F Systolic BP <130 mm Hg (Most Recent) 3074F Orders: meloxicam, 7.5 mg = 1 tab(s), Oral, Daily, # 90 tab(s), Refills(s) 0, Pharmacy: [facility], 178, cm, 09/10/24 13:01:00 EDT, Height/Length Dosing, 80.1, kg, 09/10/24 13:01:00 EDT, Weight Dosing Follow-up No qualifying data [...] mg= 1 tab(s), Oral, Daily, 1 refills fluticasone Nasal 0.05 mg/inh [place], See Instructions gabapentin 300 mg Cap, 300 mg= 1 cap(s), Oral, Daily, 1 refills glimepiride 2 mg Tab, See Instructions Jantoven 5 mg oral tablet, 5 mg= 1 tab(s), Oral, Daily meloxicam 7.5 mg Tab, 7.5 mg= 1 tab(s), Oral, Daily omeprazole 40 mg Cap-DR, 40 mg= 1 cap(s), Oral, Daily, 1 refills pravastatin 40 mg [...] Turmeric 500 mg oral capsule Vitamin B12 Allergies No Known Medication Allergies Social History [...] lifetime) Tobacco Use:. Never Smokeless Tobacco Use:., 09/10/2024 Family History Diabetes mellitus (more content not included)... Normal [facility] Comment on above: Result Comment: Elec tronically Signed By: Adam COHN, Kylah Cole\.br\Date and Time Signed: 09/10/24 13:19 EDT General Surgery Office/Clini c Noteon 08-28-2024 General Surgery Office/Clinic Note General Surgery Office/Clinic Note Chief Complaint ref- hernia HPI Staff RN TRANSFER Dariel is an 84 y.o. male here for inguinal hernia Dr. Medina referring History of Present Illness 84-year-old male [...] E&M of New Patient Low 30-44 Min 33285 2. ASCVD (arteriosclerotic cardiovascular disease) (I25.10: Atherosclerotic heart disease of [place] coronary artery without angina pectoris) The patient require surgery he will require cardiac clearance Ordered: E&M of New Patient Low 30-44 Min 85358 3. Longstanding persistent atrial fibrillation (I48.11: Longstanding persistent atrial fibrillation) Should patient require or opt for a robotic repair he will need to hold his anticoagulation for 5 days prior to the procedure Ordered: E&M of New Patient Low 30-44 Min 67291 Follow-up No qualifying data available Problem List/Past [...] Oral, Daily, 1 refills Flonase 0.05 mg/inh [place], 1 spray(s), Nasal, BID gabapentin 300 mg [...] virus vaccine, inactivated 08/02/2014 Recorded Normal [facility] Comment on above: Result Comment: Elec tronically Signed By: Sam COHN, Davie oLpez.br\Date and Time Signed: 08/28/24 15:02 EDT Ambulatory Visit Summaryon 0 08-07-2024 Ambulatory Visit Summary Ambulatory Visit Summary DARIEL ZABALA :1940 Visit Date:08/07/2024 Ambulatory Visit Instructions Your Care Team Attending Physician - Kylah Medina MD Primary Care Physician - Kylah Medina MD This Is Your Medications List Turmeric (Turmeric 500 mg oral capsule) atenolol (atenolol 25 mg Tab) cholecalciferol (D3) cholecalciferol (Vitamin D3 5000 intl units (125 mcg) oral tab) cyanocobalamin (Vitamin B12) finasteride (finasteride 5 mg Tab) fluticasone nasal (Flonase 0.05 mg/inh [place]) gabapentin (gabapentin 300 mg Cap) glimepiride (glimepiride [...] Appointments 2023 9:15 AM EST With: Kylah Medina MD Where: [address] [id number]- Tuesday 1:00 PM EST With: Dixon Dubose PA-C Where: [facility] 2024 8:00 AM EDT With: Where: [address] [address]- Medications What How Much When Why Instructions [...] Unchanged fluticasone nasal (Flonase 0.05 mg/ inh [place]) 1 Sprays Nasal Inhalation 2 times a [...] choosing us for your care. Normal [facility] Family Medicine Office/Clini c Noteon 08-07-2024 [...] day(s), # 21 tab(s), Refills(s) 0, Pharmacy: [facility]/pharmacy #[id number], 178, cm, 07/31/24 14:02:00 EDT, [...] Oral, Daily, 1 refills Flonase 0.05 mg/inh [place], 1 spray(s), Nasal, BID gabapentin 300 mg [...] 1 r (more content not included)... Normal [facility] Comment on above: Result Comment: Elec [...] day(s), # 21 tab(s), Refills(s) 0, Pharmacy: [facility]/pharmacy #[id number], 178, cm, 07/31/24 14:02:00 EDT, Height/Length Dosing, 78.5, kg, 07/31/24 14:02:00 EDT, Weight Dosing tramadol, 50 mg = 1 tab(s), Oral, q4hr, PRN for pain, X 7 day(s), # 21 tab(s), Refills(s) 0, Pharmacy: [facility]/pharmacy #[id number], 178, cm, 07/31/24 14:02:00 EDT, [...] Oral, Daily, 1 refills Flonase 0.05 mg/inh [place], 1 spray(s), Nasal, BID gabapentin 300 mg [...] virus vaccine, inactivated 08/02/2014 Recorded Normal [facility] Comment on above: Result Comment: Elec tronically Signed By: Adam COHN, Kylah Lopez.br\Date and Time Signed: 07/31/24 14:23 EDT Ambulatory Visit Summaryon 0 07-24-2024 Ambulatory Visit Summary Ambulatory Visit Summary DARIEL ZABALA :1940 Visit Date:07/24/2024 Ambulatory Visit Instructions Your Diagnosis BMI 24.0-24.9, adult Nonsmoker Your Care Team Attending Physician - Kylah Medina MD Primary Care Physician - Kylah Medina MD This Is Your Medications List Turmeric (Turmeric 500 mg oral capsule) atenolol (atenolol 25 mg Tab) cholecalciferol (D3) cholecalciferol (Vitamin D3 5000 intl units (125 mcg) oral tab) cyanocobalamin (Vitamin B12) finasteride (finasteride 5 mg Tab) fluticasone nasal (Flonase 0.05 mg/inh [place]) gabapentin (gabapentin 300 mg Cap) glimepiride (glimepiride [...] Appointments Tuesday 2:00 PM EDT With: Kylah Medina MD Where: [address] [address]- 2023 9:15 AM EST With: Kylah Medina MD Where: [address] [id number]- Tuesday 1:00 PM EST With: Dixon Dubose PA-C Where: [facility] 2024 8:00 AM EDT With: Where: [place] [address]- Medications What How Much When Instructions Unchanged [...] Unchanged fluticasone nasal (Flonase 0.05 mg/ inh [place]) 1 Sprays Nasal Inhalation 2 times a [...] for choosing us for your care. Normal [facility] Family Medicine Office/Clini c Noteon 07-24-2024 Family Medicine Office/Clinic Note Family Medicine Office/Clinic Note HPI Staff Dariel is an 84 year old male presenting for ER follow up ER followup: Hospital: [place] Visit date: 07/14/24 Symptoms the patient presented [...] patient was under the dosed. Patient stated [place] was helping him more. Patient denies any [...] - Will do Tizanadine - Will do [place] for pain - Follow up in 1 [...] for 3 day(s), 12 tab(s), Refill(s) 0, [facility]/pharmacy #[id number], 178, cm, 07/24/24 14:57:00 EDT, Height/Length Dosing, 78.7, kg, 07/24/24 14:57:00 EDT, Weight Dosing tizanidine, 4 mg = 1 tab(s), Oral, q8hr, # 90 tab(s), Refills(s) 1, Pharmacy: [facility]/pharmacy #[id number], 178, cm, 07/24/24 14:57:00 EDT, [...] Oral, Daily, 1 refills Flonase 0.05 mg/inh [place], 1 spray(s), Nasal, BID gabapentin 300 mg Cap, 300 mg= 1 cap(s), Oral, Daily, 1 refills glimepiride 2 mg Tab, 2 mg= 1 tab(s), Oral, Daily, 1 refills Jantoven 5 mg oral tablet, 5 mg= 1 tab(s), Oral, Daily levothyroxine 25 mcg (0.025 mg) Tab, 25 mcg= 1 tab(s), Oral, Daily, 1 refills [place] 325 mg-5 mg oral tablet, 1 tab(s), [...] No. [place] (more content not included)... Normal [facility] Comment on above: Result Comment: Elec tronically Signed By: Kylah Medina MD\.br\Date and Time Signed: 07/24/24 15:24 EDT Ambulatory Visit Summaryon 0 07-03-2024 Ambulatory Visit Summary Ambulatory Visit Summary DARIEL ZABALA :1940 Visit Date:07/03/2024 Ambulatory Visit Instructions Your Diagnosis Serous otitis media Carpal tunnel syndrome, left Erectile dysfunction due to arterial insufficiency Hard of hearing Inguinal hernia of left side without obstruction or gangrene Your Care Team Attending Physician - Kylah Medina MD Primary Care Physician - Kylah Medina MD This Is Your Medications List Turmeric [...] EST With: Adam COHN, Kylah Cole Where: [address] [address]- Tuesday 1:00 PM EST With: Dixon Dubose PA-C Where: [facility] 2024 8:00 AM EDT With: Where: [address] [id number]- Medications What How Much When Instructions Unchanged [...] choosing us for your care. [facility] Family Medicine Office/Clini c Noteon 07-03-2024 [...] BID, 16 gram, Refill(s) 0, each nostril, [facility]/pharmacy #[id number], 178, cm, 07/03/24 10:05:00 EDT, Height/Length Dosing, 80.8, kg, 07/03/24 10:05:00 EDT, Weight Dosing gabapentin, 300 mg = 1 cap(s), Oral, Daily, # 90 cap(s), Refills(s) 1, Pharmacy: [facility], 178, cm, 07/03/24 10:05:00 EDT, Height/Length Dosing, 80.8, kg, 07/03/24 10:05:00 EDT, Weight Dosing omeprazole, 40 mg = 1 cap(s), Oral, Daily, # 90 cap(s), Refills(s) 0, Pharmacy: [facility], 178.2, cm, 02/02/24 10:29:00 EDT, Height/Length Dosing, 84.1, kg, 02/02/24 10:29:00 EDT, Weight Dosing sildenafil, 100 mg = 1 tab(s), Oral, Daily, PRN for erectile dysfunction, 1 hour before sexual activity, # 5 tab(s), Refills(s) 0, Pharmacy: [facility], 178, cm, 07/03/24 10:05:00 EDT, Height/Length Dosing, 80.8, kg, 07/03/24 10:05:00 EDT,... 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 Normal [facility] Comment on above: Result Comment: Elec tronically Signed By: Adam COHN, Kylah Lopez.claudio\Date and Time Signed: 07/03/24 10:27 EDT Heart [...] influenza virus vaccine, inactivated 08/02/2014 Recorded Normal [facility] Comment on above: Result Comment: Elec [...] November and January and was hospitalized in [place] for 2 of those. He states that [...] with voice recognition artificial intelligence software, specifically ToonTime, ActionFlow and or Immunome. Substitutions may have occurred due to the inherent limitations of voice recognition and artificial intelligence software. Total time spent pr (more content not included)... Normal [facility] Comment on above: Result Comment: Elec tronically Signed By: Dixon Dubose PA-C\.claudio\Date and Time Signed: 05/30/24 14:29 EDT Holter [...] BY: Kashif Barnett MD ca Dictated: 05/27/2024 [id number] Transcribed: 05/28/2024 [facility] Comment on above: Result Comment: Elec tronically Signed By: Ericka COHN, Kashif Craig\.br\Date and Time Signed: 05/29/24 13:13 EDT Coding Summary.on 05-09-2024 Coding Summary. PVTVBeag81XSs2qKc+P GhlYWQ+BV8SABShO18p zJKzhU9wT7PXRLrHSnh gQVBQTElOSyIgbmFtZT 1kaXNjZXJu IC8+NR2yFJOrBtenkVL po4F9aTM8Q96dww2uMC bbdRX8ZYGkIsLkjddkn 7dhjBr4OJanKkijShAl KWArsH53PHU7qY40Tn0 9lMEahCKjj4dmnEu9Ol IoRIWhWYD3qLotUPvhq 6QcNFXvO02xyTPze0P1 IGNvbGxhcHNlOyBlbXB 7uP9qEUkcgigfw8jwiq kzEuz6vh90vAFhv5Z7n DK8V3RlllO6WQBsdAUk YdczfWLWdU1luglvj4k sgtddVsZoOCNkUCy4NT d0XPRcpFxxAiAtAA58V SS4NBCghbPdF8GbESKq wUnlNmA4w6L8Pj1SM8E PGporD9LSJJWFADrobJ Q+SG86mo44O2OqQyotE ms1IOBwATY2lDL5fY1m OTRtVHlib5E1uKP0C2E ngaInts9vd0xzBVSxJS wcW15mtDAdl0I3AIBbi MN6GNMzfElsCmXqcR91 Oyc+OKAqgKxjk6EySik ce4xhr7xzgSy8DocmGV VovhVmoCuaFPV0o6ApO j6lPVJudJL5zXF6xO9t RwCnJuD6IRzkM219EiP xsBNnLiojA36qN8CitP A+BTZjFuq8PZRwzWoqH G5yQ1TtXZGmibnfqETm pYzrEL7eNBChaktvURG fuK6yDEGhJ2y3PnFpMc G7TQixG0UtWAEqplgeU g48zY1rJuLkTjC1OMhj H9TpnvR4VMGnaMHfAHh vPTT7U92eu0B0AEXaLC RjNAT6zSC5lP9cjJsoc jogbGVmdDsgdmVydGlj UBjpMGphS687ISEwvHi nPkNvZGluZyBEYXRlOi AgMDYvMjYvMjAyNDwvd GQ+BOErOLE8mScwLWGr bMZwVZwiPj0tiXlmtPk vNN4tACDuhphaGDNndP 3iEWEdlSRzpGedOK6lW CFiearvi558GsMgDXB7 MONqtJVlM7EquL7gVmS eFIKwHOGwD7NraVQbKN xzJ743JQifXrJ7UZMce yVfM5MeKRMyrZvxCuX2 w8U8Tw6Eh2OqgguqL7O eqQRvEdMkUyzfQQv1D1 RkPjwvdHI+LS94KXBgX L81GVz6TEK5eIrgAToc EYKkP3ZgbH1nLmTcDKS kZGRkOyc+PHRhYmxlIH dpZHRoPScxMDAlJyBzd GuoJX3yHv9hWNSwFWLe rEqlbCLbSuIcp7thPAH oTIafMK2wbJxvH0JjyX N5UIIhf2h6Sw52D45aH 3JvdXA+ISNpwRA2nEZ3 tW1fGpLwVbT3IQhoF41 6PbSxfXAuWylnn9eeo3 ihcQv0UaR7CDGqnjXuk JggDVZ6t2AcTc34W28m IHdpZHRoPSIxNSUiIHZ miIgafl5edI8oPs7+PG YtdOP0yXI5eP0gQyOvU yY3ENytU498MqInoPZb Lperf4dri6askDg8IcL aXLYhwyWgkMepCVS9z5 HxGo86O4NryCqet8YdX nq8qn42zUEzz9B7xEZ7 A4EzDXCaumzfzGTrsZj bUX1jVYMrafyhRJGbpA 6zFFDgQ8b4JwSxYmI1O EloR7WxnoA7RWVqzXNw TCDveDNHcC2ookqbd1v gimiiZrNbESZeKXs8MX j2XBMsbJlvVhPwHHX8C aT0GHQ5mCZwmB8wwOpb eseadV2oQfo+RCX2oSL mcOJKGY8iBgwvrWH+PH ExCRV7bKsuFKtnMZXli D3mLFJrK9y2RiWiPrV9 EQfzX2CpogL4EMNtmVU lLQTvbRUBpH6vfnrgc2 wshgyoRkZqYFGoMMh2E Pp3SWEirQkpThOfGQG8 MiA8MNW8gWLmwK3spTl zecbamM4uOjg+QmlydG qtGPO0TFu1K2QvLew0T DWgaXgwKL3ioXQgROwm Ks2psUlovWmfEO8jSJV jznpdr162BlLsj2jqPR BbbQOcARlzDLB5I06jq 0F2AIJgDZCpOBW7pKY5 bC2veUoduzehqTLrhCb gdmVydGljYWwtYWxpZ2 17GNBwqAwiOaDwNQh9V 2JcYtt7TSEbuXpsFE1i vTHgTOooXk6saCqfePm hIX0hMUVxudohx837Gb Dlu7avPCGocWUiNNnaL NH5A87ri4J3BDAvZMOy ABG0bZY7bF7tqTgntxq gbGVmdDsgdmVydGljYW uoKSyhH995MPLwhFqvD sSupHo2S8XtEzy7MLGi sHmpYV2zqGOcNZfcKo9 pfCsmfSrhYY3hESYljl juv093RfDox4bhWUNxh NCwPEryJBD2E94mj5E7 CWDuZLSfJAD3pXW2xK8 hbGlnbjogbGVmdDsgdm XgaChhHItcUJfpD909D HRvcDsnPlBhdGllbnQg KMgtKTn0Z4YoFomykZY +QO10PLIoUD54lZWwrD Aub9hkhGs0WjKfCAKuC BA4xUiiYPmve0WtDOGp U43pqZTod9I5TKUdwVq rfPAcOuOliVI0sQ4vQR amcshtl5qoxxckMbmsx 6cbtu84wS69I41xJXyh ZHRoPSIzMCUiIHZhbGl fdt5xzI4hAc4+PGNvbC B0uSH0gL9aQPJxJbU2C CxyH651JxBlcVXmHpzh c1fnu6yknAd4UpC2GXZ fmdXdnYzpRHJ4k5NoVc 93W86sHYbsNSDrHRZaD WDyDIBswUglyl7dzL2v Ii8+ZYSfxAB4lJH4kE6 jLpDsFzZ0VIhrZ813Mv UzqVHsYclbD49bP6Veb XA+YSSxGdv4MZCfoMtk TU6llXFcVCszJr7kZXP 6WkJeMyAlQKzuG3UsYV RbvzrukynuhQB9KWPuL XXbkV69Wv3abVasSQIa wOGHcW3mmbask0ouexo mJeCjZPDvJRs1RRk2ZD LtcCwlIxUtZHT7DxE2I FK4jPHzfT5loEebcwxv aA6iU6OaMTGwhaudBr4 5lP6rJcYaLgC3JMkfNw c+UrIDLxkyAw9NDUAWA T02BL82yKJwq7L6wSS3 M1DuQWRzcgzkrkgiwKJ 1KMKdQJIcmB69kYStCA riTv7ir2R9s196TMHiQ KZziE72Hy0gjYynEJUo kHMPuH2rqcyxq5nnwbr fFkGxNUYvZEh2QZa1AA HipIbzAwBtAZM2MdF5X SU5kBAvoH9wxJjznajt jZ6nAtq+MDYvMDkvMTk 0MjwvdGQ+YHWhTKI1cC cyEAruLQXibS0bRQEhO 1t6KxUhMaJ9KMitK1Yr HFVujtvmAz56qX9qOjQ kAjN9IUxuJ3BrksO4PH JbxJBuGKvqYBV6F83qz 3G4IAIhMEWhDRF7sFA6 rR5mzHnxyrcpwJNnwAl gdmVydGljYWwtYWxpZ2 46IHRvcDsnPjgyIFllY AUwEX35XE38rROvz0M1 lTK3O6FaNPDgkjffmbf omWO6DHSqALZrfU14aF DxMKqlPg2tz5V9i608L MJbMTUotA50Eh0iwEjb GBPdxVVZaP9eyovih8v fslqlIlIsEVDrXAf9HT v2RMCbwAxaAhOuJLD1R nP5GYK8jUPleP5tjNqo nyhiuZ7uJil+TWFsZTw vdGQ+BEHqDQM1fVoeSG atWPBvaD7aRHOyM9w6X rPqPnJ4XHugH6AnBVCm gthoOf86lW8qCxFiUhW 5ISaiR9MilhM8AQUigH RqYDgoHGK6E87vb7Q0I ORjAADzWFH1xRG1jU1z bGlnbjogbGVmdDsgdmV cnFlqOCiqVDxwF934JR ZuoEqmNl96yBTilDdop oS7H4GiQmjksSU+PC90 RBNcUR21bODhsIEcl8o hxEr4WkIrIPTrEFZ5gH bhDKclz0DiTVWuU99ht UHah8R9YTKsfXlomWEd ZxTvdCH0iH6vGTjnpai hn8exvbsfSsutv6pyun 13hO03R10rBMdvXNKfS OYkDKXuYPGbaHqhpa2t dE8tDt0+ULCvwNY6bMY 4pS6cFuTfThU1MXxsA1 05BhAfwRZtHqzlx5rpt 3sysSo4GkQzXTScniRf cPblESW5w4MgWr20I86 sIHdpZHRoPSIyMCUiIH IjaJdutn4zpA1rMv0+P C4yu6bwij61sM12sGC+ ZWKuCNH0yGlnACvwMOH aeZ7lUVrcToZ6BYJrXm VcdR25aUZpLFwvIv9nz OrysZenHA1uQORxugcg a139KvVrm0hrZCEwkSK nXXisJNR0I07uk3I9JF FzKFAtNIW4jEG7hC3gy GlnbjogbGVmdDsgdmVy eEsvVZmwQYwuA227KXA mmTekLqVurXTiP8hmol EVYY9pJvxtrSX+PHRkI AV0wOcfPZsiSMUbkV5y YQSjX9j0FpYeIxW8YSs kE6EpzzP6TVWggDYzPS ExnCEBtE5bcuyag7wrf azhYuQrPVDcHGi0AFn8 BGMxfWgbCmImNDL1UyT 5JWO0zXPinR0aiHshlr hsyE4lNgx+RklOOjwvd GQ+YLQaYOL7sCmrWEpy JAYcrE3zJCDpB1l0BoT wFrN3CXakV0ZczhA0YE QddPPsTYLksYDSnE8mc alvl9dehgtkFkXfJECl GLi7GQt0XMDzhShgTbQ zVFN0MoG0HDP5cRTtqJ 6fsLotxmnpsA4uHiw+T VJOOjwvdGQ+PHRkIHN0 eIgwABclMZUabO9oJJV kF0w0PuVqMzL3HHpdP7 EpjsA4HAYpuGMbMRRfv TYXkD0ekgeuu6ushvdp EsIpTRWhFBj1RGk2SRU imIwfVgShXBG4XxR6ZN C4hKZzxE4pzIvqhljcy G9wOyc+JSD7DAN9IV60 GU95Y3KcByueeOYooCD +PHRhYmxlIHdpZHRoPS hcHZBmXlMedGirAS9qY a0cZCCpXWSafBivpGVx PwVxc3gwXIApH (more content not included)... Normal [facility] Coding Summary.on 05-08-2024 Coding Summary. KHAQUrvp73HAz5rFm+P GhlYWQ+GX7SSFBdG26i wJTbfN8gZ1OPUZbXVvj gQVBQTElOSyIgbmFtZT 1kaXNjZXJu IC8+XV6xOLToSvcltAP zp9C8eVP6E86lju0lFS ytxRT0GVPeYbSsrtenb 5iksHb2IYffTqxnAkKe CEHchQ50KVF9uE52Id4 8eLFjlDVan2nzyKi8Qj BlYPWpVYK7uLkfJMsxi 2ZiXRPxN67ytZEqz8O3 IGNvbGxhcHNlOyBlbXB 6jX1wMHyknmrjp9rwos gvVrg9at08cIOdc1O4l JC6R6GfpfC0LEJvvWTi XnsuwKYKxX4lgoxlo7n ubgbnHdIrXITpLVe7FI j0AKGqzOavShKpGE42V UX5ZFLxjwFvX7NsTMAf kJxrBsW4l3U1Ug5CD5W VGiiyE9YPIFWSYMoguF Q+RT98mr13B7EqHeysH ny9PGKzPRX5uDM2dD5f EWEbVKnob4C2wXN0U0I czkDlbw2yi8czHUBaLM ocS33lxUBqz4Q5XLIus UO8JHStnYoxFoEoeQ96 Oyc+PBWupAymk2VnUhy hc1fty7eyfYs6KqgmZR AnxzQtoJoeNQE6m7NlB c1oAUCwcIW4tJM8qK3j TqFiPtA9XDpiH177LgT keQBdNkgxK64aW2OntU A+LTJnErx4NVVuaSlhR I1jF2WdERPmcythuWOi zJijBQ7vLSXfoyilHVV dfN0vFNPqV7d5XwIkSj F4ELgmD1FcSRZmuhyxO q22mQ2bDlPsHrP2MFxm W3VcnuE9HKXsvYDiXPk cECL9M97vu1T9ZQBoPW HeVLK5tMB0iL4qpZqqy jogbGVmdDsgdmVydGlj OOygGEfgS248HHFmxAh nPkNvZGluZyBEYXRlOi AgMDYvMjUvMjAyNDwvd GQ+JQKiGAL2lXyxCBRv oQIdXZkuCd9znSoxqTr jZO1pQMEfvbaeCMOvcS 5jCQPctSPchXunDF9hH TCwpfhij361EnFpQZF1 KMXvzEHiI7CawQ1tDmE mGGCbPFQpO6KyzMQfMN wlK183AIwpXkY8YVChk fPeI1DkUODfkQaaQgD7 n1P8Jg6Qj8VrtxrdW4U ztSQsIuZeHubwTCv5T6 RkPjwvdHI+NW38XSIuI X05QXh2LWI7cTxbZUrp CPEoA7DkoA7iRrPjZYH kZGRkOyc+PHRhYmxlIH dpZHRoPScxMDAlJyBzd PlpZY8rMw5sBSLxZEHj fVqbcMDaDrJty4rsWXZ ySMfeRS9jeOunC3SqbQ U9CLAus4u9Ys09R91eN 3JvdXA+HPBbtAA7uRC6 wP5qCzRfAxK0YJdrD53 3XmGmnQKsHcrna6nmz8 dziRa5PvJ0QIGiofKfv WkgNHQ9d6IkHo44H38h IHdpZHRoPSIxNSUiIHZ roYtqos1pzA4oCc2+PG ZgrXR8zFO5uX3jSfNqP fP3LZylN356YnHqcBYk Toffd4fga7rqaFh2KhM cATPfcpFfsUrkQYO1e4 WbGm80G4FvqNigj6IqE lt3zv42bPOca6J4dZF4 P4UxSPRjhzysxNKiePl vKA9zFENxvxwnIVKlnZ 8yMSWbL2u2KuWvPdO0B JjpC5LcjvC2XSHwcYBz MFCoeIECgL1mzqgvt5r lgwgmVsAbEGIwFTw7HC n8WCYnzJkeYaPyIIH6K mU2BAR9lTPomS7btNzz xsrdgF4vOwa+TKB7bCR nxSLZVH7aVdhpcHT+PH KeUES7iZqvXNrrXVYfz X9jXPTtO5z2ZjFaQiL3 SLhfQ0WhqgG3SJXlbXB kLZHwrFRXfH1xkxdkv2 xnnkykQnOtBQHfACs7L Sh2IMMxhIcnAdFzWTW9 SmX2ZXL3sPKepF9khWo dacagxR4bUsp+QmlydG ssVHN7VUf3M2InMxg4B HMamJvbOG8zbPOxLLcc El4jjBzkpZesES6qUWL dzvxnx966CnKgu9hkVS UbuJVxJWxrHBW4I52vh 7Q4MZVxQAEmLKU3zZL5 mN2ifNjtqbolvZRoxNk gdmVydGljYWwtYWxpZ2 21ZJHuhHtsWwUrBBv6X 2ZuTse2INHywQugSS0x fJAnDZvqLl0pbNmppJm rMZ7pDBKfzoccr724Kp Xnk6ooUSPecPPnYOtwW KT6P04zw3A9MKTiGKHg WRY5uVK4rF7yaPaatvu gbGVmdDsgdmVydGljYW nyHYbwQ999GQChwUhbN vOwjWc0X7KrXaw8ETNx gShuNL9hjEAeYWebLi7 osVwbxBcyIQ8wMLJlwz nmj939EdGnx6khAWQuc DFjYUiaNFS2U84od4Y5 SFFrNQYrFJX3wLZ6uT7 hbGlnbjogbGVmdDsgdm FucTxbAMhcYMamC826M HRvcDsnPlBhdGllbnQg TOsmKYu7I4CmCpqpbOB +VK75TRVyJI53oPIwjH Kaq8swxGq6VsVpVQSpG MC8qRefDArry5GjBTAb R77hsUDkh2N4LVUebCi hnYSxLiJvuEH7gJ2gPR kfkpymm1hkqvutQrvhk 1bhpz15zL86C40dICof ZHRoPSIzMCUiIHZhbGl ouq8kmK0pYb4+PGNvbC U1iKJ0pI0sFLSlZtT7U AcwW184KoKvdSHwMwsc q9aqd8ouyWz4BfZ5SNB fvbJjpFkfSWE7f9DlBx 20N36pZAweJFOwWJTrE HTrVMQphOewfd5arG5c Ii8+JSGgtSC7zQZ3vZ3 wHwCrMwY1THlxM160Vo QnpOMiJwquR40sI5Ymh XA+SUCaZci5TLPezYtc HS6msFJpBMfiJh7yQPX 5WgWkJhAtIQzdB9GxXC ZdattevsawcXV3RRVoZ LEqsI77Ck6ftZjdVITt bNLPzG1dxuubc9dqtse zNyXnTLRjCJb3VDg4PW ZjnKbwVzNwEOH4NkY1I MT9gCVvsU1hfQedhaaw oQ7tK1OeMDHryjcwPp4 1aK9qObTkIrL3FWcmEd c+KyFYTmscWg5OQVITE M65OS42kGIqv2J7fOA2 J7NfJBLvxfjiraumwEC 3KHIdJWPcrG60kOIpRJ wcUe5bp5C8j553JILeW QBduV27Uw8vzDxpUQZk uDAVeO9bmuxuu9tqfxe wUrElKBLfQTv5NJq7XQ GpuZhfZhYiBLK8PqB5J DC2bQYyrB6olZgrskgf eD0nPjk+MDYvMDkvMTk 0MjwvdGQ+JBZhPEY2xK htORgrKCMafK3xKEExC 8q9PgGjGgO6YLvbS9Qm TKZqpbtkIc24uR7dNpB hCmX4VJgdF5IasiC0OX GfxTXrISceNHZ8D59wi 0Y0CVIgSGFuYZH2zBO5 rH2fjJevqsomyWVtlZg gdmVydGljYWwtYWxpZ2 46IHRvcDsnPjgyIFllY IWvCL99SU48yGKlx9C2 oKV6U4JvUXXkratqvev hhCE0MPIoXZIrbB17aY NwAKavEu5cr8J8a001J JVrDEDerH84Jx8yrJnu HNJgqROJxV3qrpvzh0u ogkwcLiJsWDNeUMr8BW b8AOHgjMcdUtMaYPP6N mD4IPE7xDBvqA4dxMjv gmyfzN9hBsk+TWFsZTw vdGQ+RFUyBEL2tQfmAM ktLXLsvI8bOPZpG1k9Z eIuDwL3TQtgV2RrSYSz pqmwEw66jR3fBgFlYlS 4DPvwE4UvfxI7RNMbgO TfMAkgQWL2H21jl8E0Y NAkLFCfPCT0pDH6hU9m bGlnbjogbGVmdDsgdmV zcMqvKEmzYFwbT361AD ErxIzmQkfyEeKQfo1hP R3hGuggpBZ+UT89er88 I1XnIhjaYoo4IXStJSL 8wRO6bO7lRIMyVSyxh5 Z4uNJ4C3DxirLrto1ja 6lrKMYoUGdvY57cvHPt c6Q1MBPrpKL4XZWbkKo aEkEeuV27Twz+PGNvbG jrr3YqFgdok6miy2ief Ps2VoDtEDFxyzOqjBij RQE0b1IeJh33K73eFSc pZHRoPSIzMCUiIHZhbG lxrw2uoX7cQz3+PGNvb XZ2vHO6eH8vPnGpSxW7 OLnzF819SmDosXUaVaq ni1aza3wahJr9DuYjMU YpomZvfUumSPR6s1WkO n43O9LtwGvtm0VhTdd8 ri84gGVqt3Z6wCY8L4R hZGRpbmctbGVmdDogMC 4hUUCzmjizCEBorG9lV CZyY0a8HqDkXmN3UNvm F0JwlyM7OPBxbAMyMWA loRDGfU7unslhb2leyd apApPpJWKyNCj7EKw4P BKzeEkwNrWlIMD1SoM9 UZY5xSFkbV9meWhkssf upD8xOhq+WPx0o4nfnB QlZI4xsES4YO40OV29x DRrz1X6fOF0V6QgSXFq khixrkiygYC4ZOKtYJU hwE88Wy5nxLalFw9jVX NlOSD6KCTsmZFxS4Sqo Z4uXnNmCMAxPTJeJ6Vp wXNmRNlqE209WKlvWtZ 9JJZmhaKoD5VdOLPzwN vcDoW8f6K6Id6GHF20E R81CU47gCKrz8K2eCR9 K1EqDDVtjczyaqbvvTL 2FCNvPGHmxM11Xg1qvS lcEh9nWZFkTJP4HXMva FBuM9AciE6vXdVdGIYg IJLvV9YbcOBkSFhkV18 8EZshFiF6TWSlzfZcZ4 ClWFVugQstDwS7i4Y1C f6RPh87KG21XI55uWWr y1E1hZB9X3FdNENqshp hbgnzlQD1PLMlWEQdjF 92Rv7xuFuwSi5jHHIpR WC3WWKnvYPdX7OyaP8w JeKeEZEiRLXnA5NnpWC mHHvsB591WCksKbB7MC GdvfTpL7CtCRDlpIdeW hY2i9Y4Gk9WTTjlufl8 F1MsXxlugBT+FK38FBH kWZ72wYGigTTjw7conH n3GxLeMNIoTUV6uJhpN Xsuo4QfBBWwR21asEVe u4U2SYXeoEwgb (more content not included)... Normal [facility] Consultation Noteon 05-07-20 Consultation Note [id number] D#[email or web address] Normal [facility] Ambulatory Visit Summaryon 0 05-03-2024 Ambulatory Visit Summary DARIEL ZABALA :1940 Visit Date:05/03/2024 Ambulatory Visit Instructions Your Diagnosis Annual visit for general adult medical examination with abnormal findings Afib Longstanding persistent atrial fibrillation DM type 2 causing vascular disease Hyperlipidemia ASCVD (arteriosclerotic cardiovascular disease) Frequent falls Your Care Team Attending Physician - Kylah Medina MD Primary Care Physician - Kylah Medina MD This Is Your Medications List Turmeric [...] Ericka COHN, Kashif Craig Where: [facility] 2023 9:15 AM EST With: Kylah Medina MD Where: [facility] [address] [address]- \.br\ Medications\.br\ What How Much When Instructions\.br\ [...] to adjust your dosage.\.br\ ? \.br\ Take [id number] and prescription medicines only as told by [...] active. Exercise regularly, as told by your [facility] Ambulatory Visit Summary DARIEL ZABALA :1940 Visit Date:05/03/2024 Ambulatory Visit Instructions Your Diagnosis DM type 2 causing vascular disease Longstanding persistent atrial fibrillation Mixed hyperlipidemia Hyponatremia Erectile dysfunction due to arterial insufficiency Syncope Your Care Team Attending Physician - Kylah Medina MD Primary Care Physician - Kylah Medina MD. This Is Your Medications List Contact [...] Ericka COHN, Kashif Craig Where: [facility] 2023 9:15 AM EST With: Adam COHN, Kylah Cole Where: [facility] Family [facility] [place] [facility] [address] [place] [address]- \.br\ Medications\.br\ What How Much When Instructions\.br\ [...] of cylinders, a pump, and a reservoir. [facility] Office/Clini c Noteon 05-03-2024 [facility] Office/Clinic Note Chief Complaint Medicare Wellness [...] Airborne, Droplet Precautions for MERS/COVID-19 : N/A Abdullahi JOSE DE JESUSMarthavarinder Nickerson 05/03/2024 8:01 EDT Medicare/Medicaid Summary Chief Complaint [...] pain Numeric Rating Pain Score : 5 Abdullahi JOSE DE JESUSMayankRenetta L - 05/03/2024 8:01 EDT Hearing and Vision Screening FT FT Whisper Test Comments : Wears hearing aids. Vision Screen Comments : Wears corrective lenses to read, does not have an eye dr. Has not had a DM eye exam in over two years, encouraged to establigh with an eye dr and get a DM eye exam, patient states he has just been busy, Bradly DELA CRUZMayankRenetta L 05/03/2024 8:01 EDT Advance Directive FT Advance [...] 08:24:28 EDT Procedure Dt/Tm: 03/26/2024 ; Location: [facility] ; Anesthesia Minutes: 0 ; Procedure [...] Renetta Abdullahi LPN - 05/03/2024 8:01 EDT [facility] Risks Grid Sexual problems : Never [...] Depression Screening (more content not included)... Normal [facility] Comment on above: Result Comment: Elec tronically Signed By: Kylah Medina MD\.br\Date and Time Signed: 05/03/24 13:02 EDT\.br\Electronically [...] for it. Been seeing specialists that Dr Medina has sent him to. History of Present Illness - Patient is here for follow-up. Patient had an annual wellness visit today. Patient's only question today is if he should be taking his Viagra since he has been passing out. 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 Normal [facility] Comment on above: Result Comment: Elec [...] night-lights. ? Place frequently used items in ixsx-yh-urcze places. Lower the shelves around your home [...] the way. ? Do not use floor yoruba or wax that makes floors slippery. If [...] include working with a physical therapist or certified athletic trainer to improve your strength, balance, and endurance. Where to find more information ? Centers for Disease Control and Prevention, [place]: www.cdc.gov ? National [place] on Aging: www.kieran.nih.gov Contact a health care [...] health ca (more content not included)... Normal [facility] Patient Education Urology Erectile Dysfunction Erectile dysfunction [...] these instructions at home: Medicines ? Take nwog-nrn-chjhenp and prescription medicines only as told by [...] include cig (more content not included)... Normal [facility] Screenson 05-03-2024 Screens [id number] 2#1.00TIFF Normal [facility] CBC w/ Auto Diffon 4 Basophils/100 WBC (Bld) 0.9 % Normal 0.0-2.0 [facility] Comment on above: Performed By: #### 2 [id number] #### [facility] [address] [place] [address] Basophils/Leukocytes Auto (Bld) [Pure # fraction] 0.0 E9/L Normal 0.0-0.2 [facility] Comment on above: Performed By: #### 2 [id number] #### [facility] [address] [place] [address] Eosinophils (Bld) [#/Vol] 0.1 E9/L Normal 0.0-0.5 [facility] Comment on above: Performed By: #### 2 856708 #### [facility] [address] [place] [address] Eosinophils/100 WBC (Bld) 2.4 % Normal 0.0-8.0 [facility] Comment on above: Performed By: #### 2 151461 #### [facility] [address] [place] [address] Erythrocyte distribution width (RBC) [Ratio] 14.4 % High 10.9-14.2 [facility] Comment on above: Performed By: #### 2 [id number] #### [facility] [address] [place] [address] Hematocrit (Bld) [Volume fraction] 42.2 % Normal 37.7-49.0 [facility] Comment on above: Performed By: #### 2 [id number] #### [facility] [address] [place] [address] Hemoglobin (Bld) [Mass/Vol] 14.0 g/dL Normal 13.5-17.5 [facility] Comment on above: Performed By: #### 2 069772 #### [facility] [address] [place] [address] Lymphocytes (Bld) [#/Vol] 1.4 E9/L Normal 1.0-4.0 [facility] Comment on above: Performed By: #### 2 532144 #### [facility] [address] [place] [address] Lymphocytes/100 WBC (Bld) 34.0 % Normal 14.0-50.0 [facility] Comment on above: Performed By: #### 2 398313 #### [facility] [address] [place] [address] MCH (RBC) [Entitic mass] 30.8 pg Normal 27.0-34.0 [facility] Comment on above: Performed By: #### 2 [id number] #### [facility] [address] [place] [address] MCHC (RBC) [Mass/Vol] 33.1 g/dL Normal 31.4-36.0 [facility] Comment on above: Performed By: #### 2 276794 #### [facility] [address] [place] [address] MCV (RBC) [Entitic vol] 92.9 fL Normal 80.0-100.0 [facility] Comment on above: Performed By: #### 2 072325 #### [facility] [address] [place] [address] Monocytes (Bld) [#/Vol] 0.4 E9/L Normal 0.2-1.0 [facility] Comment on above: Performed By: #### 2 [id number] #### [facility] [address] [place] [address] Neutrophils (Bld) [#/Vol] 2.2 E9/L Normal 2.0-7.5 [facility] Comment on above: Performed By: #### 2 967885 #### [facility] [address] [place] [address] Neutrophils/100 WBC (Bld) 53.4 % Normal 36.0-75.0 [facility] Comment on above: Performed By: #### 2 114252 #### [facility] [address] [place] [address] Platelet 166.0 E9/L Normal 150.0-500.0 [facility] Comment on above: Performed By: #### 2 644402 #### [facility] [address] [place] [address] Platelet mean volume (Bld) [Entitic vol] 9.8 fL Normal 6.4-10.8 [facility] Comment on above: Performed By: #### 2 717283 #### [facility] [address] [place] [address] RBC (Bld) [#/Vol] 4.5 E12/L Normal 4.3-5.9 [facility] Comment on above: Performed By: #### 2 562250 #### [facility] [address] [place] [address] WBC corrected for nucl RBC Auto (Bld) [#/Vol] 4.2 E9/L Normal 4.0-11.0 [facility] Comment on above: Performed By: #### 2 307745 #### [facility] [address] [place] [address] CHEMISTRYOrdered By: SYSTEM SYSTEM on 05-01-2024 Albumin [...] used for this result was chemiluminescence using [employer]'s Access Hybritech PSA reagent. Protein [Mass/Vol] 7.1 [...] 05-01-2024 Albumin [Mass/Vol] 4.2 g/dL Normal 3.3-5.0 [facility] Comment on above: Performed By: #### 2 399005 #### [facility] [address] [place] [address] Albumin/Globulin (S) [Mass conc ratio] 1.4 Normal 1.1-2.2 [facility] Comment on above: Performed By: #### 2 570686 #### [facility] [address] [place] [address] ALP [Catalytic activity/Vol] 83 Int._Unit/L Normal 21-98 [facility] Comment on above: Performed By: #### 2 479608 #### [facility] [address] [place] [address] ALT No additional P-5'-P [Catalytic activity/Vol] 14 Int._Unit/L Normal 6-46 [facility] Comment on above: Performed By: #### 2 140784 #### [facility] [address] [place] [address] Anion gap [Moles/Vol] 10 mmol/L Normal 6-16 [facility] Comment on above: Performed By: #### 2 376646 #### [facility] [address] [place] [address] AST [Catalytic activity/Vol] 22 Int._Unit/L Normal 5-43 [facility] Comment on above: Performed By: #### 2 462107 #### [facility] [address] [place] [address] Bilirubin [Mass/Vol] 0.9 mg/dL Normal 0.0-1.1 [facility] Comment on above: Performed By: #### 2 548560 #### [facility] [address] [place] [address] Calcium [Mass/Vol] 9.5 mg/dL Normal 8.9-11.1 [facility] Comment on above: Performed By: #### 2 765994 #### [facility] [address] [place] [address] Chloride [Moles/Vol] 103 mmol/L Normal 101-111 [facility] Comment on above: Performed By: #### 2 567387 #### [facility] [address] [place] [address] CO2 [Moles/Vol] 29 mmol/L Normal 21-31 [facility] Comment on above: Performed By: #### 2 721894 #### [facility] [address] [place] [address] Creatinine [Mass/Vol] 1.1 mg/dL Normal 0.5-1.3 [facility] Comment on above: Performed By: #### 2 471643 #### [facility] [address] [place] [address] Globulin (S) [Mass/Vol] 2.9 g/dL Normal 1.4-4.0 [facility] Comment on above: Performed By: #### 2 563247 #### [facility] [address] [place] [address] Glucose [Mass/Vol] 104 mg/dL Normal 55-199 [facility] Comment on above: Performed By: #### 2 093855 #### [facility] [address] [place] [address] Potassium [Moles/Vol] 5.2 mmol/L Normal 3.5-5.3 [facility] Comment on above: Performed By: #### 2 467539 #### [facility] [address] [place] [address] Protein [Mass/Vol] 7.1 g/dL Normal 6.0-7.8 [facility] Comment on above: Performed By: #### 2 648544 #### [facility] [address] [place] [address] Sodium [Moles/Vol] 137 mmol/L Normal 135-145 [facility] Comment on above: Performed By: #### 2 578663 #### [facility] [address] [place] [address] Urea nitrogen [Mass/Vol] 15 mg/dL Normal 5-21 [facility] Comment on above: Performed By: #### 2 632145 #### [facility] [address] [place] [address] Urea nitrogen/Creatinine [Mass ratio] 14 No Units Normal 10-20 [facility] Comment on above: Performed By: #### 2 178555 #### [facility] [address] [place] [address] Consent for Treatmenton 04-14 Consent for Treatment [id number] 72#1.00TIFF Normal [facility] HEMATOLOGYOrdered By: SYSTEM SYSTEM on 05-01-2024 Basophils/100 [...] Remisol Heme Lab Reportson 05-01-2024 Lab Reports [id number] E#1.00TIFF Normal [facility] Lipid Panelon 05-01-2024 Cholesterol [Mass/Vol] 168 mg/dL Normal 120-200 [facility] Comment on above: Performed By: #### 2 550188 #### [facility] [address] [place] [address] Cholesterol in HDL [Mass/Vol] 54 mg/dL Invalid Interpretation Code [facility] Comment on above: Result Comment: '>= 60 LOW RISK' '<= 40 HIGH RISK' Performed By: #### 2 292603 #### [facility] [address] [place] [address] Cholesterol in LDL [Mass/Vol] 99 mg/dL Normal <=129 [facility] Comment on above: Performed By: #### 2 530121 #### [facility] [address] [place] [address] Cholesterol in VLDL [Mass/Vol] 16 mg/dL Normal 7-40 [facility] Comment on above: Performed By: #### 2 961627 #### [facility] [address] [place] [address] Triglyceride [Mass/Vol] 78 mg/dL Normal <=149 [facility] Comment on above: Performed By: #### 2 753682 #### [facility] [address] [place] [address] Nurse Consultation Noteon Nurse Consultation Note Reason [...] influenza virus vaccine, inactivated 08/02/2014 Recorded Normal [facility] PSA Screen, Totalon 05-01-20 24 Prostate specific Ag [Mass/Vol] 1.3 ng/mL Normal 0.1-3.5 [facility] Comment on above: Result Comment: The concentration of PSA determined by different manufacturers can vary due to differences in assay methods and reagent specificity. Values obtained from different assay methods cannot be used interchangeably. The methodology used for this result was chemiluminescence using [employer]'s Access Hybritech PSA reagent. Performed By: #### 1 [id number] #### [facility] [address] [place] [address] eGFRon 05-01-2024 eGFR 67 mL/min/1.73 m2 Normal >=59 [facility] Comment on above: Order Comment: Order added by Discern Expert. Performed By: #### 1 [id number] ####[facility] [address] [place] [address] Physician Orderon 04-23-2024 Physician Order [id number] 859#1.00TIFF Normal [facility] Consent for Treatmenton Consent for Treatment [id number] #1.00TIFF Normal [facility] Heart and Vascular Office/Cl inic Noteon 04-20-2024 [...] or orthopnea. 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, however, has not been followed [...] influenza virus vaccine, inactivated 08/02/2014 Recorded Normal [facility] Comment on above: Result Comment: Elec tronically Signed By: Ericka COHN, Kashif Craig\.claudio\Date and Time Signed: 04/20/24 13:49 EDT Insurance Correspondenceon 0 04-20-2024 Insurance Correspondence [id number] 559#1.00TIFF [facility] Consultation Noteon 04-10-20 Consultation Note [id number] 1#1.00TIFF [facility] Postoperative Documentson Postoperative Documents [id number] 811#1.00TIFF Normal [facility] Consultation Noteon 03-29-20 Consultation Note [id number] B4#1.00TIFF Normal [facility] Lab Reportson 03-29-2024 Lab Reports [id number] DF#1.00TIFF Normal [facility] RAD - MISCon 03-29-2024 RAD - MISC [id number] 19#1.00TIFF Normal [facility] IntraOperative Documentson 0 03-28-2024 IntraOperative Documents [id number] 516#1.00TIFF Normal [facility] Consent for Anesthesiaon Consent for Anesthesia [id number] 28#1.00TIFF Normal [facility] Discharge Instructionson Discharge Instructions [id number] 47#1.00TIFF Normal [facility] IntraOperative Documentson 0 03-27-2024 IntraOperative Documents [id number] 36#1.00TIFF Normal [facility] Main OR Intraoperative Recor don 03-27-2024 Main OR Intraoperative Record IntraOp Document Type FT Summary Primary Physician: Axel Hernández DO Finalized Date/Time: 03/27/24 09:11:12 Pt. Name: DARIEL ZABALA/Sex: 1940 Male Med Rec #: [id number] Physician: Axel Hernández DO Financial #: [id number] Pt. Type: A Room/Bed: Admit/Disch: 03/26/24 09:11:44 - 03/26/24 14:30:00 Institution: [...] 1 Entry 2 Entry 3 Case Attendee Lynne SCHAFER, Davie Hernández DO, Ambrocio Peguero Role Performed Anesthesiologist Surgeon - Primary Seed Cleaner - Primary Desk Top Publisher Time In 03/26/24 12:20:00 03/26/24 12:20:00 03/26/24 [...] Marium Peña RN, Rich Nickerson Role Performed SENIOR ENERGY CONSULTANT/SA Scrub - Primary Staff - Other Time [...] and tissue Entry 1 Skin Integrity Intact, Am[place], Warm, and Skin Abnormality No Dry Outcomes Met? Yes Last Modified By: Ambrocio Borges 03/26/24 12:36:42 Post-Care Text: The patient is free from signs and symptoms of injury caused by extraneous objects Patient Positioning FT Pre-Care Text: Identifies physical alterations that require additional precautions for procedure-specific positioning, verifies presence of prosthetics or correctiv (more content not included)... Normal [facility] Operative Reporton Operative Report SURGERY DATE: 03/26/2024 SOFTWARE APPLICATIONS SPECIALIST: Chica Jolley C.F.A. PREOPERATIVE DIAGNOSIS: Right little [...] patient's condition satisfactory Deanna Weller Dictated: 03/26/2024 [id number] Transcribed: 03/26/2024 cc:Kylah Medina M.D. [facility] Comment on above: Result Comment: Elec tronically Signed By: Axel Hernández DO\.br\Date and Time Signed: 03/27/24 07:40 EDT Preoperative Documentson Preoperative Documents [id number] 14#1.00TIFF [facility] Progress Note-Physicianon Progress Note-Physician Patient: DARIEL ZABALA [...] 2 causing vascular disease / SNOMED CT 127996287 / Confirmed Trigger finger / SNOMED CT 841449025 / Confirmed Syncope / SNOMED CT 077546203 / Confirmed Body mass index (BMI) of 25.0-25.9 in adult / SNOMED CT 5372855741 / Confirmed Osteoarthritis / SNOMED CT 2456441280 / Confirmed Encounter for surveillance of abnormal nevi / SNOMED CT 0599066414 / Confirmed Laceration of head / SNOMED CT 7849206219 / Confirmed Hyponatremia / SNOMED CT 814519306 / Confirmed Hyperlipidemia / SNOMED CT 52682926 / Confirmed Fall at home / SNOMED CT 75264146 / Confirmed ED (erectile dysfunction) / SNOMED CT 8338345563 / Confirmed Carpal tunnel syndrome, left / SNOMED CT 20747966 / Confirmed Afib / SNOMED CT 38771675 / Confirmed ASCVD (arteriosclerotic cardiovascular disease) / SNOMED CT 141565494 / Confirmed Histories Procedure history: Surgery, neck X 2 (070112908). Carpal tunnel release (975829398). Social History Social & Psychosocial Habits Alcohol [...] adequate air exchange. Cardiovascular: Regular rhythm. Plan [place] [employer] Anesthesiologists (ASA) physical status classification: Class III. Anesthetic Preoperative Plan: Anesthesia General. Normal [facility] Comment on above: Result Comment: Elec tronically Signed By: Brendan Gonzalez DO, Chau Schumacher\.claudio\Date and Time Signed: 03/27/24 12:32 EDT Progress [...] meets criteria ( To home ). Normal [facility] Comment on above: Result Comment: Elec tronically Signed By: Chau Cardona Jr, DO\.br\Date and Time Signed: 03/27/24 12:32 EDT CHEMISTRYOrdered By: Lab ROP User on 03-26-2024 Glucose [Mass/Vol] 92 mg/dL Normal 55 - 99 mg/dL FTM C POC Subsection Comment on above: Result Comment: Justine garcia RN/MD POC Device SN [id number] 1 Invalid Interpretation Code [facility] POC Subsection POC User ID [id number] 1 Invalid Interpretation Code [facility] POC Subsection POC Username LORNA WILSON Invalid Interpretation Code [facility] POC Subsection COAGULATIONOrdered By: Toshia Tadeo on 03-26-2024 aPTT Coag (PPP) [Time] 35.8 s Normal 25.1 - 36.5 second(s) [facility] Auto Coag Comment on above: Interpretive Data: P keilalinda 15 days - 4 weeks 1 - [...] obtained from a study by meka Burk alShanna prepared from 1437 samples obtained at 7 different centers using the same coagulation reagent and instrumentation as [facility]. Currently there are no coagulation studies available worldwide for children to 14 days, and no normal ranges. Capillary Glucose POCon 03-14 Glucose [Mass/Vol] 92 mg/dL Normal 55-99 [facility] Comment on above: Result Comment: Justine garcia RN/ Performed By: #### 2 [id number] #### [facility] [address] [place] [address] Consent for Procedure/Surger yon 03-26-2024 Consent for Procedure/Surgery [id number] 421#1.00TIFF Normal [facility] Consent for Treatmenton 03-14 Consent for Treatment [id number] E9#1.00TIFF Normal [facility] Discharge Instructionson Discharge Instructions DARIEL ZABALA :1940 Visit Date:03/26/2024 Inpatient Discharge Instructions Your Care Team Admitting Physician - Catherine ELLIS, Axel Smalls Referring Physician Lisa Hernández DO, Axel Smalls Reason for Your Visit RIGHT LITTLE FINGER TRIGGER FINGER Your Diagnosis Trigger finger, right little finger This Is Your Medications List Turmeric (Turmeric 500 mg oral capsule) acetaminophen-hydro codone ([place] 325 mg-5 mg oral tablet) atenolol (atenolol [...] AM EDT Comments: Keep scheduled appointment Where: [address] [place] [address]- [employer] (1) Medications What How Much When Why Instructions Next Dose Unchanged acetaminophen-hydro codone ([place] 325 mg-5 mg oral tablet) See instructions Trigger finger, right little finger 1 tab(s) Oral q4hr PRN Pain. Duration 7 days. Pickup at [facility]/pharmacy #[id number] Unchanged atenolol (atenolol 25 mg Tab) 1 [...] Tablets By Mouth Every day Pharmacy Information [facility]/pharmacy #[id number]: [address], [place] [id number] [phone] Problems Ongoing - Any problem that you [...] and med (more content not included)... Normal [facility] Comment on above: Result Comment: Elec tronically Signed By: Sloan KHAN, Rudy Pereira\.br\Date and Time Signed: 03/26/24 14:03 EDT H&P Updateon 03-26-2024 H&P Update [id number] 633#1.00TIFF Normal [facility] Main OR PACU I Recordon 03-14 Main OR PACU I Record PACU Phase I Document Type FT Summary Primary Physician: Axel Hernández DO Finalized Date/Time: 03/26/24 13:38:42 Pt. Name: DARIEL ZABALA/Sex: 1940 Male Med Rec #: [id number] Physician: Axel Hernández DO Financial #: [id number] Pt. Type: A Room/Bed: Admit/Disch: 03/26/24 09:11:44 [...] Signed By: Vicki Sethi RN 03/26/24 13:38 [facility] Main OR PACU II Recordon Main OR PACU II Record PACU Phase II Document Type FT Summary Primary Physician: Axel Hernández DO Finalized Date/Time: 03/26/24 16:11:30 Pt. Name: DARIEL ZABALA Mary/Sex: 1940 Male Med Rec #: [id number] Physician: Axel Hernández DO Financial #: [id number] Pt. Type: A Room/Bed: [place] [address] Admit/Disch: 03/26/24 09:11:44 - 03/26/24 14:30:00 Institution: [...] By: Rudy Lisa RN 03/26/24 16:11 Normal [facility] Main OR Preoperative Recordo n 03-26-2024 Main OR Preoperative Record PreOp Document Type FT Summary Primary Physician: Axel Hernández DO Finalized Date/Time: 03/26/24 13:07:41 Pt. Name: DARIEL ZABALA/Sex: 1940 Male Med Rec #: [id number] Physician: Axel Hernández DO Financial #: [id number] Pt. Type: A Room/Bed: Admit/Disch: 03/26/24 09:11:44 [...] 03/26/24 13:05 Ambrocio Borges 03/26/24 13:07 Normal [facility] Monitor Recordon 03-26-2024 Monitor Record [id number] 220#1.00TIFF [facility] Monitor Record [id number] 270#1.00TIFF [facility] PT & PTTon 03-26-2024 aPTT Coag (PPP) [Time] 35.8 second(s) Normal 25.1-36.5 [facility] Comment on above: Result Comment: Para meter [...] - 109.0 sec. Performed By: #### 1 [id number] ####[facility] [address] [place] [address] PT Coag (PPP) [Time] 13.4 second(s) High 9.4-12.5 [facility] Comment on above: Result Comment: 15 d [...] no normal ranges. Performed By: #### 1 [id number] ####[facility] [address] [place] [address] PT & PTTOrdered By: Starr linda on [...] 3.0 ? 4.5 Performed By: #### 1 [id number] ####[facility] [address] [place] [address] Patient Education - Texton 0 03-26-2024 Patient [...] ? Doing activities 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 ? Having rheumatoid arthritis, gout, or diabetes. [...] on your hand. General instructions ? Take glzr-kkd-oodlfoy and prescription medicines only as told by [...] care provide (more content not included)... Normal [facility] Ambulatory Visit Summaryon 0 03-20-2024 Ambulatory Visit Summary DARIEL ZABALA :1940 Visit Date:03/20/2024 Ambulatory Visit Instructions Your Diagnosis Afib Fall at home Laceration of head Syncope Hyponatremia Over weight BMI 25.0-25.9,adult Your Care Team Attending Physician - Kylah Medina MD Primary Care Physician - Kylah Medina MD This Is Your Medications List Turmeric [...] Appointments Tuesday 12:30 PM EDT With: Where: [facility] Tuesday 9:00 AM EDT With: Where: [facility] Invalid Interpretation Code [address] [place] [address]- \.br\ 2023 9:00 AM EDT \.br\ With: Adam COHN, Kylah Cole\.br\ Where: [facility] Consent for Procedure/Surger yon 03-20-2024 Consent for Procedure/Surgery [id number] 969#1.00TIFF Normal [facility] Medicine Office/Clini c Noteon 03-20-2024 Family Medicine Office/Clinic Note HPI Staff Dariel is an 83 year old male presenting for ER follow up needs his andre removed ER followup: Hospital: [place] Visit date: 03/10/24 Symptoms the patient presented [...] influenza virus vaccine, inactivated 08/02/2014 Recorded Normal [facility] Comment on above: Result Comment: Elec tronically Signed By: Kylah Medina MD\.br\Date and Time Signed: 03/20/24 15:31 EDT Inpatient Patient Summaryon 03-20-2024 Inpatient Patient Summary [facility] [address] [place], [place] [address] [facility] Clinical Discharge Instructions PERSON INFORMATION Name: DARIEL ZABALA PHYSICIANS Admitting Physician: Axel Hernández DO Attending Physician: Axel Hernández DO PCP: Kylah Medina MD Discharge Diagnosis: Trigger finger, right little finger Comment: PATIENT EDUCATION INFORMATION Instructions: Trigger Finger Medication Leaflets: Follow up: With: Address: When: Axel Hernández [address] [place] [address] Business (1) Comments: Keep scheduled appointment Type Location Start [facility] 03/26/2024 12:30 PM 03/26/2024 12:45 PM Confirmed Lab Draw [facility] 05/01/2024 9:00 AM 05/01/2024 9:20 AM Confirmed FM Medicare Wellness Subsequent [facility] 05/03/2024 8:00 AM 05/03/2024 9:00 AM Confirmed FM Open [facility] 05/03/2024 9:00 AM 05/03/2024 9:15 AM [...] mg oral capsule) ubiquinone (CoQ10) Comment: Normal [facility] Outpatient Surgery Discharge Instructionon 03-20-2024 Outpatient Surgery Discharge Instruction [address] [address] Patient Discharge Instructions PERSON INFORMATION Name: DARIEL ZABALA Date of : 1940 Current Date: 03/20/2024 17:16:59 PHYSICIANS Admitting Physician: Axel Hernández DO Discharge Diagnosis: Trigger finger, right little finger CLIFFORDDARIEL Solitario has been given the following list of [...] THE NEAREST EMERGENCY ROOM OR CALL 911 IVJDARIEL, have received the attached patient education materials/instructi ons and have verbalized understanding: May we do a follow up call? Yes No I was present when discharge instructions were given Patient Signature Date Clinican/Nurse Signature Date Follow up: With: Address: When: Axel Hernández [address] [place] [id number] Business (1) Comments: Keep scheduled appointment Type Location Start [facility] Surgery [facility] 03/26/2024 12:30 PM 03/26/2024 12:45 PM Confirmed Lab Draw [facility] 05/01/2024 9:00 AM 05/01/2024 9:20 AM Confirmed FM Medicare Wellness Subsequent [facility] 05/03/2024 8:00 AM 05/03/2024 9:00 AM Confirmed FM Open [facility] 05/03/2024 9:00 AM 05/03/2024 9:15 AM [...] to serve you. Thank you for choosing [facility] HERE ARE THE MEDICATION CHANGES THAT [...] finger ca (more content not included)... Normal [facility] ECG 12-Leadon 03-12-2024 ECG 12-Lead [id number] EC#1.00TIFF Normal [facility] ED Note-Physicianon 03-12-20 24 ED Note-Physician [id number] A7#1.00TIFF Normal [facility] RAD - CT Reporton 03-12-2024 RAD - CT Report [id number] 20#1.00TIFF Normal [facility] RAD - CT Report [id number] A4#1.00TIFF Normal [facility] RAD - MISCon 03-12-2024 [facility] MIS [id number] 55#1.00TIFF Normal [facility] Ambulatory Visit Summaryon 0 03-08-2024 Ambulatory Visit Summary DARIEL ZABALA :1940 Visit Date:03/08/2024 Ambulatory Visit Instructions Your Diagnosis Trigger finger DM type 2 causing vascular disease Afib Body mass index (BMI) of 25.0-25.9 in adult Hyponatremia Your Care Team Attending Physician - Kylah Medina MD Primary Care Physician - Kylah Medina MD This Is Your Medications List Turmeric [...] Appointments Tuesday 1:45 PM EDT With: Where: [facility] Tuesday 9:00 AM EDT With: Where: [facility] Invalid Interpretation Code [address] [place] [address]- \.br\ 2023 9:00 AM EDT \.br\ With: Adam COHN, Kylah Cole\.br\ Where: [facility] [place] [facility] Medicine [facility] Office/Clini c Noteon 03-08-2024 [facility] Office/Clinic Note HPI Staff Dariel is an 83 year old male presenting for surgical clearance Needs clearance and hold coumadin in writing and faxed to Dr Hernández at [phone] Note: he would really benefit for chronic [...] virus vaccine, inactivated 08/02/2014 Recorded Normal [facility] Comment on above: Result Comment: [...] numbers. This can be done either in [place]ian ([place] or metric measurements. Note that charts and online BMI calculators are available to help you find your BMI quickly and easily without having to do these calculations yourself. To calculate your BMI in [place]vian ([place] measurements: 1. Measure your weight in [...] for Disease Control and Prevention: www.cdc.gov ? [place] Heart Association: www.heart.org ? National Heart, Lung, and Blood [place]: www.nhlbi.nih.gov Summary ? Body mass index (BMI) is a number that is calculated from a person's weight and height. ? BMI may help estimate how much of a person's weight is composed of fat. BMI can help identify those who may be at higher risk for certain medical problems. ? BMI can be measured using Latvian measurements or metric measurements. ? BMI charts are used to identify whether you are underweight, normal weight, overweight, or obese. This information is not intended to replace advice given to you by your health care provider. Make sure you discuss any questions you have with your health care provider. Document Revised: 07/23/2020 Document Reviewed: 05/30/2020 Beautified Patient Education ? 2022 [employer]. Normal [facility] Physician Referralon 024 Physician Referral [id number] 859#1.00TIFF Normal [facility] XR Chest 2 Viewson 4 XR Chest [...] mGy = na DAP = na Normal [facility] BMPon 03-06-2024 Anion gap [Moles/Vol] 10 mmol/L Normal 6-16 [facility] Comment on above: Performed By: #### 1 [id number], 2638066, 5661073 ####[facility] [address] [place] [address] Calcium [Mass/Vol] 9.1 mg/dL Normal 8.9-11.1 [facility] Comment on above: Performed By: #### 1 1194589, 3983136, 4781745 ####[facility] [address] [place] [address] Chloride [Moles/Vol] 102 mmol/L Normal 101-111 [facility] Comment on above: Performed By: #### 1 1693753, 3332033, 1893392 ####[facility] [address] [place] [address] CO2 [Moles/Vol] 28 mmol/L Normal 21-31 [facility] Comment on above: Performed By: #### 1 5012957, 7925512, 5571691 ####[facility] [address] [place] [address] Creatinine [Mass/Vol] 1.0 mg/dL Normal 0.5-1.3 [facility] Comment on above: Performed By: #### 1 6474782, 0056487, 8155322 ####[place] [place] [address] Glucose [Mass/Vol] 98 mg/dL Normal 55-199 [facility] Comment on above: Performed By: #### 1 2615232, 7532829, 1151480 ####[facility] [address] [place] [address] Potassium [Moles/Vol] 4.3 mmol/L Normal 3.5-5.3 [facility] Comment on above: Performed By: #### 1 2204939, 7863829, 5344274 ####[facility] [address] [place] [address] Sodium [Moles/Vol] 136 mmol/L Normal 135-145 [facility] Comment on above: Performed By: #### 1 8486818, 5332263, 1227415 ####[facility] [address] [place] [address] Urea nitrogen [Mass/Vol] 14 mg/dL Normal 5-21 [facility] Comment on above: Performed By: #### 1 8058933, 9441472, 9737041 ####[facility] [address] [place] [address]77857 Urea nitrogen/Creatinine [Mass ratio] 14 No Units Normal 10-20 [facility] Comment on above: Performed By: #### 1 5391564, 4396916, 9580221 ####[address] [address] CBC w/ Auto Diffon 4 Basophils/100 WBC (Bld) 1.0 % Normal 0.0-2.0 [facility] Comment on above: Performed By: #### 1 9199539, 1551023, 0629282 ####[address] [address] Basophils/Leukocytes Auto (Bld) [Pure # fraction] 0.0 E9/L Normal 0.0-0.2 [facility] Comment on above: Performed By: #### 1 3238851, 4215731, 0596849 ####[place] [address] Eosinophils (Bld) [#/Vol] 0.2 E9/L Normal 0.0-0.5 [facility] Comment on above: Performed By: #### 1 0197286, 1378009, 5114703 ####[place] [address] Eosinophils/100 WBC (Bld) 3.9 % Normal 0.0-8.0 [facility] Comment on above: Performed By: #### 1 0517560, 2660348, 5945017 ####[place] [address] Erythrocyte distribution width (RBC) [Ratio] 14.0 % Normal 10.9-14.2 [facility] Comment on above: Performed By: #### 1 3678116, 2663814, 3082821 ####[address] [address] Hematocrit (Bld) [Volume fraction] 39.1 % Normal 37.7-49.0 [facility] Comment on above: Performed By: #### 1 8844103, 1176219, 5009336 ####[facility] [address] [place] [address] Hemoglobin (Bld) [Mass/Vol] 13.0 g/dL Low 13.5-17.5 [facility] Comment on above: Performed By: #### 1 9667977, 4063239, 3429070 ####[address] [address] Lymphocytes (Bld) [#/Vol] 1.4 E9/L Normal 1.0-4.0 [facility] Comment on above: Performed By: #### 1 3247708, 8793387, 5434517 ####[address] [address] Lymphocytes/100 WBC (Bld) 31.0 % Normal 14.0-50.0 [facility] Comment on above: Performed By: #### 1 7073336, 4391554, 8730725 ####[address] [address] MCH (RBC) [Entitic mass] 30.3 pg Normal 27.0-34.0 [facility] Comment on above: Performed By: #### 1 7505317, 7651355, 5611822 ####[address] [address] MCHC (RBC) [Mass/Vol] 33.3 g/dL Normal 31.4-36.0 [facility] Comment on above: Performed By: #### 1 1121371, 4580384, 4793923 ####[address] [address] MCV (RBC) [Entitic vol] 91.2 fL Normal 80.0-100.0 [facility] Comment on above: Performed By: #### 1 0007719, 0912159, 5180360 ####[address] [address] Monocytes (Bld) [#/Vol] 0.4 E9/L Normal 0.2-1.0 [facility] Comment on above: Performed By: #### 1 6285534, 8641963, 8282422 ####[address] [address] Neutrophils (Bld) [#/Vol] 2.5 E9/L Normal 2.0-7.5 [facility] Comment on above: Performed By: #### 1 9409349, 0093207, 2728684 ####[address] [address] Neutrophils/100 WBC (Bld) 55.3 % Normal 36.0-75.0 [facility] Comment on above: Performed By: #### 1 2102875, 4290633, 2877661 ####[address] [address] Platelet 157.0 E9/L Normal 150.0-500.0 [facility] Comment on above: Performed By: #### 1 7571092, 3686949, 1610980 ####[address] [address] Platelet mean volume (Bld) [Entitic vol] 9.7 fL Normal 6.4-10.8 [facility] Comment on above: Performed By: #### 1 3570741, 0694209, 7184086 ####[address] [address] RBC (Bld) [#/Vol] 4.3 E12/L Normal 4.3-5.9 [facility] Comment on above: Performed By: #### 1 1760231, 1663928, 9159537 ####[address] [address] WBC corrected for nucl RBC Auto (Bld) [#/Vol] 4.6 E9/L Normal 4.0-11.0 [facility] Comment on above: Performed By: #### 1 7416705, 9152923, 6644155 ####[address] [address] CHEMISTRYOrdered By: SYSTEM SYSTEM on 03-06-2024 Anion [...] for Treatmenton 02-13 Consent for Treatment [id number] B4#1.00TIFF Normal [facility] HEMATOLOGYOrdered By: SYSTEM SYSTEM on 03-06-2024 Basophils/100 [...] 03-06-2024 eGFR 75 mL/min/1.73 m2 Normal >=59 [facility] Comment on above: Order Comment: Order added by Discern Expert. Performed By: #### 1 9206072, 4886065, 7944729 ####[facility] [address] [facility] [place] [address] Consultation Noteon 03-01-20 Consultation Note [id number] 5E#1.00TIFF Normal [facility] Lab Reportson 02-27-2024 Lab Reports [id number] E7#1.00TIFF Normal [facility] Family Medicine Office/Clini c Noteon 02-07-2024 Family Medicine Office/Clinic Note HPI Staff Dariel is an 83 year old male presenting for 2 month follow up DM Needs refills of levothyroxine and glimiperide to [facility] Do you have any of the following symptoms? Foot Exam: none Eye Exam: due Last A1C: Hgb A1C %: 5.6 % (12/01/23 14:31:00) Statin: pravastatin 40mg questions/concerns: saw kidney specialist (Rashad) about 3 weeks ago ( no report in file) was told to stop the omeprazole and meloxicam and cut salt tablets from tid to bid. Also says [facility] sent him a letter and said you [...] his left side. The patient saw his private investigator surveillance on 12/28/2023. His omeprazole and meloxicam were [...] cardiovascular disease) (I25.10: Atherosclerotic heart disease of [place] coronary artery without angina pectoris) He has [...] with voice recognition artificial intelligence software, specifically ToonTime, ActionFlow and or Immunome. Substitutions may have occurred due to the inherent limitations of voice recognition and artificial intelligence software. ATTESTATION: Documentation services were performed after patient or guardian consented to allow [employer] to record this visit. MELISSA tooling specialist and provider reviewed before signing. MELISSA: [...] in life (more content not included)... Normal [facility] Comment on above: Result Comment: Elec tronically Signed By: Kylah Medina MD\.br\Date and Time Signed: 02/07/24 12:44 EDT\.br\Electronically [...] Your Care Team Attending Physician - Kylah Medina MD Primary Care Physician - Kylah Medina MD This Is Your Medications List atenolol [...] Appointments Tuesday 9:00 AM EDT With: Where: [facility] Invalid Interpretation Code [address] [place] [address]- \.br\ 2023 9:00 AM EDT \.br\ With: Adam COHN, Kylah Cole\.br\ Where: [facility] Physician Referralon 024 Physician Referral [id number] 6#1.00TIFF [facility] Lab Reportson 01-05-2024 Lab Reports [id number] C1#1.00TIFF [facility] Transfer Inon 12-08-2023 Transfer In [id number] F9#1.00TIFF [facility] Auth for Release of Medical Recordson 12-06-2023 Auth for Release of Medical Records [id number] E#1.00TIFF [facility] Medicine Office/Clini c Noteon 12-02-2023 Family Medicine [...] records from Dr. Jada Rene. 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 He and his family relocated from [place] to [place] 7 months ago, but they originally grew up in [place]. Review of Systems PHQ Score Initial Depression [...] cardiovascular disease) (I25.10: Atherosclerotic heart disease of [place] coronary artery without angina pectoris) He will [...] with voice recognition artificial intelligence software, specifically ToonTime, ActionFlow and or Immunome. Substitutions may have occurred due to the inherent limitations of voice recognition and artificial intelligence software. Documentation services were performed after patient or guardian consented to allow [employer] to record this visit. MELISSA tooling specialist and provider reviewed before signing. MELISSA: [...] tab(s), Oral, Horace (more content not included)... [facility] Comment on above: Result Comment: Elec tronically Signed By: Kylah Medina MD\.br\Date and Time Signed: 12/02/23 08:22 EST\.br\Electronically Co-Signed By: Allie Conway\.br\Date and Time Co-Signed: 12/01/23 17:49 EST Lab Reportson 12-02-2023 Lab Reports [id number] 1#1.00TIFF [facility] Ambulatory Visit Summaryon 0 12-01-2023 Ambulatory Visit Summary CLIFFORDDARIEL Solitario :1940 Visit Date:12/01/2023 Ambulatory Visit Instructions Your Diagnosis DM type 2 causing vascular disease ASCVD (arteriosclerotic cardiovascular disease) Hyponatremia Osteoarthritis Afib BMI 26.0-26.9,adult Over weight Nonsmoker Your Care Team Attending Physician - Kylah Medina MD Primary Care Physician - Kylah Medina MD This Is Your Medications List atenolol [...] for choosing us for your care. Normal [facility] CBC w/ Auto Diffon 4 NRBC Man 0 Normal 0-0 [facility] Comment on above: Performed By: #### 2 383207, 6786536, 65281351, 6215351, 883633941 #### [facility] [address] [place] [address] Basophil Absolute 0.0 E9/L Normal 0.0-0.2 [facility] Comment on above: Performed By: #### 2 783482, 0746388, 81344177, 7143051, 985013217 #### [facility] [address] [place] [address] Basophils/100 WBC (Bld) 0.4 % Normal 0.0-2.0 [facility] Comment on above: Performed By: #### 2 040126, 1759196, 49019721, 5105747, 827782374 #### [facility] [address] [place] [address] Eos Absolute 0.2 E9/L Normal 0.0-0.5 [facility] Comment on above: Performed By: #### 2 169272, 5524813, 25381820, 4910210, 851100544 #### [facility] [address] [place] [address] Eosinophils/100 WBC (Bld) 2.9 % Normal 0.0-8.0 [facility] Comment on above: Performed By: #### 2 697705, 5894972, 45726672, 8915442, 651282212 #### [facility] [address] [place] [address] Erythrocyte distribution width (RBC) [Ratio] 14.0 % Normal 10.9-14.2 [facility] Comment on above: Performed By: #### 2 546844, 8886123, 04331579, 5081682, 706245744 #### [facility] [address] [place] [address] Hematocrit (Bld) [Volume fraction] 37.0 % Low 37.7-49.0 [facility] Comment on above: Performed By: #### 2 591431, 8342783, 72972320, 0911485, 631810574 #### [facility] [address] [place] [address] Hemoglobin (Bld) [Mass/Vol] 12.1 g/dL Low 13.5-17.5 [facility] Comment on above: Performed By: #### 2 619154, 6554325, 23262528, 7561575, 157429374 #### [facility] [address] [place] [address] Lymph Absolute 1.8 E9/L Normal 1.0-4.0 [facility] Comment on above: Performed By: #### 2 686345, 7833439, 37635740, 7341600, 985151824 #### [facility] [address] [place] [address] Lymphocytes/100 WBC (Bld) 29.3 % Normal 14.0-50.0 [facility] Comment on above: Performed By: #### 2 152290, 5454952, 32747217, 3504807, 809415260 #### [facility] [address] [place] [address] MCH (RBC) [Entitic mass] 30.8 pg Normal 27.0-34.0 [facility] Comment on above: Performed By: #### 2 287517, 1964029, 59859813, 7195910, 554958941 #### [facility] [address] [place] [address] MCHC (RBC) [Mass/Vol] 32.8 g/dL Normal 31.4-36.0 [facility] Comment on above: Performed By: #### 2 071751, 3291228, 49572027, 1888926, 116845440 #### [facility] [address] [place] [address] MCV (RBC) [Entitic vol] 93.8 fL Normal 80.0-100.0 [facility] Comment on above: Performed By: #### 2 033807, 3169965, 37857774, 0495874, 571163444 #### [facility] [address] [place] [address] [place] Absolute 0.5 E9/L Normal 0.2-1.0 [facility] Comment on above: Performed By: #### 2 333117, 2419740, 16614837, 3896475, 036026552 #### [facility] [address] [place] [address] Monocytes/100 WBC (Bld) 7.9 % Normal 4.0-14.0 [facility] Comment on above: Performed By: #### 2 645282, 7857461, 96875756, 2688428, 533873892 #### [facility] [address] [place] [address] Neutro Absolute 3.6 E9/L Normal 2.0-7.5 [facility] Comment on above: Performed By: #### 2 987175, 5323521, 30885433, 8999248, 721529890 #### [facility] [address] [place], [place] [address] Neutro Auto 59.5 % Normal 36.0-75.0 [facility] Comment on above: Performed By: #### 2 594224, 1288623, 71387679, 7538143, 292158500 #### [facility] [address] [place] [address] Platelet 198.0 E9/L Normal 150.0-500.0 [facility] Comment on above: Performed By: #### 2 579812, 3601010, 88413979, 9025429, 539945082 #### [facility] [address] [place] [address] Platelet mean volume (Bld) [Entitic vol] 9.5 fL Normal 6.4-10.8 [facility] Comment on above: Performed By: #### 2 108618, 6432087, 40061770, 7829453, 998152480 #### [facility] [address] [place] [address] RBC 3.9 E12/L Low 4.3-5.9 [facility] Comment on above: Performed By: #### 2 607889, 2700831, 03442540, 8887504, 142251468 #### [facility] [address] [place] [address] WBC 6.0 E9/L Normal 4.0-11.0 [facility] Comment on above: Performed By: #### 2 342834, 6359389, 87961020, 5682813, 903433307 #### [facility] [address] [place] [address] CHEMISTRYOrdered By: Kate Sotomayor on 12-01-2023 U [...] 12-01-2023 Albumin [Mass/Vol] 3.9 g/dL Normal 3.3-5.0 [facility] Comment on above: Performed By: #### 2 063498, 6864356, 95256854, 1428287, 005290183 #### [facility] [address] [place] [address] Albumin/Globulin [Mass ratio] 1.6 {ratio} Normal 1.1-2.2 [facility] Comment on above: Performed By: #### 2 368570, 0653984, 21897149, 2486352, 602717519 #### [facility] [address] [place] [address] Alk Phos 75 Int._Unit/L Normal 21-98 [facility] Comment on above: Performed By: #### 2 680634, 7068179, 70892292, 4186479, 227665615 #### [facility] [address] [place] [address] ALT 12 Int._Unit/L Normal 6-46 [facility] Comment on above: Performed By: #### 2 234418, 0361015, 23783535, 4188616, 862325789 #### [facility] [address] [place] [address] Anion gap [Moles/Vol] 9 mmol/L Normal 6-16 [facility] Comment on above: Performed By: #### 2 708771, 7327542, 15299807, 8969490, 245066348 #### [facility] [address] [place] [address] AST 20 Int._Unit/L Normal 5-43 [facility] Comment on above: Performed By: #### 2 864389, 3203986, 64965670, 8761177, 614139213 #### [facility] [address] [place] [address] Bili Total 0.9 mg/dL Normal 0.0-1.1 [facility] Comment on above: Performed By: #### 2 581154, 1187645, [id number], 1750171, [id number] #### [facility] [address] [place] [address] BUN/Creat Ratio 10 No Units Normal 10-20 [facility] Comment on above: Performed By: #### 2 515584, 8227642, 94475989, 2257376, [id number] #### [facility] [address] [place] [address] Calcium [Mass/Vol] 8.7 mg/dL Low 8.9-11.1 [facility] Comment on above: Performed By: #### 2 254870, 9268796, 35706045, 8633434, [id number] #### [facility] [address] [place] [address] Chloride [Moles/Vol] 104 mmol/L Normal 101-111 [facility] Comment on above: Performed By: #### 2 161760, 4752545, 66417293, 7129237, [id number] #### [facility] [address] [place] [address] CO2 [Moles/Vol] 30 mmol/L Normal 21-31 [facility] Comment on above: Performed By: #### 2 900804, 1333993, 64176674, 7207364, [id number] #### [facility] [address] [place] [address] Creatinine [Mass/Vol] 1.1 mg/dL Normal 0.5-1.3 [facility] Comment on above: Performed By: #### 2 130923, 0251064, 21091595, 1640708, [id number] #### [facility] [address] [place] [address] Globulin (S) [Mass/Vol] 2.5 g/dL Normal 1.4-4.0 [facility] Comment on above: Performed By: #### 2 856631, 2214499, 50133554, 4099572, 251546771 #### [facility] [address] [place] [address] Glucose [Mass/Vol] 72 mg/dL Normal 55-199 [facility] Comment on above: Performed By: #### 2 626829, 2336106, 68757028, 2610604, 403486125 #### [facility] [address] [place] [address] Potassium [Moles/Vol] 4.2 mmol/L Normal 3.5-5.3 [facility] Comment on above: Performed By: #### 2 542058, 5367863, 81647504, 7500226, 844472346 #### [facility] [address] [place] [address] Protein [Mass/Vol] 6.4 g/dL Normal 6.0-7.8 [facility] Comment on above: Performed By: #### 2 816810, 3655053, 39198127, 7699196, 039509608 #### [facility] [address] [place] [address] Sodium [Moles/Vol] 139 mmol/L Normal 135-145 [facility] Comment on above: Performed By: #### 2 380809, 0912166, 11587270, 9997050, [id number] #### [facility] [address] [place] [address] Urea nitrogen [Mass/Vol] 11 mg/dL Normal 5-21 [facility] Comment on above: Performed By: #### 2 083409, 5677284, 62004140, 1451656, 067407785 #### [facility] [address] [place] [address] HEMATOLOGYOrdered By: SYSTEM SYSTEM on 12-01-2023 Basophil [...] Normal 80.0 - 100.0 fL Remisol Heme [place] Absolute 0.5 E9/L Normal 0.2 - 1.0 [...] 1 Normal 0 - 0 Remisol Heme [id number] 12-01-2023 HbA1c (Bld) [Mass fraction] 5.6 % Normal <=5.9 [facility] Comment on above: Performed By: #### 2 920647, 3499918, 10795822, 8310492, 106701954 ####[facility] [address] [place] [address] Lipid Panelon 12-01-2023 Cholesterol [Mass/Vol] 156 mg/dL Normal 120-200 [facility] Comment on above: Performed By: #### 2 906824, 7986672, 94049377, 2710331, [id number] #### [facility] [address] [place] [address] Cholesterol in HDL [Mass/Vol] 51 mg/dL Invalid Interpretation Code [facility] Comment on above: Result Comment: '>= 60 LOW RISK' '<= 40 HIGH RISK' Performed By: #### 2 381322, 6562095, 99333258, 3937053, [id number] #### [facility] [address] [place] [address] Cholesterol in LDL [Mass/Vol] 89 mg/dL Normal <=129 [facility] Comment on above: Performed By: #### 2 089100, 3955946, 78699734, 6502866, 553363077 #### [facility] [address] [place] [address] Cholesterol in VLDL [Mass/Vol] 18 mg/dL Normal 7-40 [facility] Comment on above: Performed By: #### 2 481023, 8808477, 37507509, 7080696, 210836161 #### [facility] [address] [place] [address] Triglyceride [Mass/Vol] 92 mg/dL Normal <=149 [facility] Comment on above: Performed By: #### 2 725825, 1373958, 45296545, 5617067, 496280978 #### [facility] [address] [place] [address] U Microalbon 12-01-2023 U Microalb <2.0 Normal 0.0-19.0 [facility] Comment on above: Performed By: #### 1 [id number], [id number] ####[facility] [address] [place] [address] U Protein/Creat Ratioon 11-14 U Creatinine 62.5 mg/dL Invalid Interpretation Code [facility] Comment on above: Performed By: #### 1 [id number], [id number] ####[facility] [address] [place] [address] U Prot/Creat Ratio NOT CALCULATED Invalid Interpretation Code .00-200.00 [facility] Comment on above: Performed By: #### 1 [id number], 85971259 ####[facility] [address] [place] [address] Ur Total Protein <6.0 Invalid Interpretation Code [facility] Comment on above: Performed By: #### 1 [id number], 43048697 ####[facility] [address] [place] [address] eGFRon 12-01-2023 eGFR 67 mL/min/1.73 m2 Normal >=59 [facility] Comment on above: Order Comment: Order added by Discern Expert. Performed By: #### 2 898041, 5325815, 96319153, 9024636, [id number] #### [facility] [address] [place] [address] Basic Metabolic Panelon 10-15 Anion gap [Moles/Vol] 8.1 mmol/L Normal 6.0-15.0 [facility] Comment on above: Order Comment: Reaso n for Exam Hyponatremia Performed By: #### C BC, BMP #### [facility] [address] [place] [id number] [facility] Calcium [Mass/Vol] 9.3 mg/dL Normal 8.6-10.[address] [facility] Comment on above: Order Comment: Reaso n for Exam Hyponatremia Result Comment: PERF ORMED BY: [place] [address] PATHOLOGIST TRACK LAMINATING MACHINE TENDER DANNY NEAL M.D. Performed By: #### C BC, BMP #### [facility] [address] [place] [id number] [place] Chloride [Moles/Vol] 102 mmol/L Normal 98-107 [facility] Other Comment on above: Order Comment: Reaso n for Exam Hyponatremia Performed By: #### C BC, BMP #### [facility] [address] [place] [address] [place] CO2 [Moles/Vol] 32.4 mmol/L High 21.0-31.[address] [facility] Comment on above: Order Comment: Reaso n for Exam Hyponatremia Performed By: #### C BC, BMP #### [facility] [address] [place] [id number] [place] Creatinine [Mass/Vol] 1.07 mg/dL Normal 0.70-1.30 [facility] Comment on above: Order Comment: Reaso n for Exam Hyponatremia Performed By: #### C BC, BMP #### [facility] [address] [place] [address] [place] GFR/1.73 sq M.predicted MDRD (S/P/Bld) [Vol rate/Area] mL/min/{1.73_m2} Normal [facility] Other Comment on above: Order Comment: Reaso n for Exam Hyponatremia Performed By: #### C CECILIA, BMP #### [address] Glucose [Mass/Vol] 93 mg/dL Normal 70-100 [facility] Other Comment on above: Order Comment: Reaso n for Exam Hyponatremia Result Comment: [place] Glucose Reference Range is dependent on time and content of last meal. Glucose of more than 200 mg/dL in a nonstressed, ambulatory subject supports the diagnosis of Diabetes Mellitus. ADA recommended reference range Performed By: #### C BC, BMP #### [place] [address] [place] Potassium [Moles/Vol] 4.5 mmol/L Normal 3.5-5.1 [facility] Comment on above: Order Comment: Reaso n for Exam Hyponatremia Performed By: #### C BC, BMP #### [place] [id number] [place] Sodium [Moles/Vol] 138 mmol/L Normal 136-145 [facility] Other Comment on above: Order Comment: Reaso n for Exam Hyponatremia Performed By: #### C BC, BMP #### [place] [id number] [place] Urea nitrogen [Mass/Vol] 13 mg/dL Normal 7-25 [facility] Other Comment on above: Order Comment: Reaso n for Exam Hyponatremia Performed By: #### C CECILIA, BMP #### [facility] [address] Calcium [Mass/Vol] 9.0950102 mg/dL Normal 8.6-10.3 mg/ dL [facility] Other CO2 [Moles/Vol] 32.40382833 mmol/L High 21.0-31.0 mm ol/L [facility] Other Creatinine [Mass/Vol] 1.74893839 mg/dL Normal 0.70-1.30 mg/dL [facility] Other Potassium [Moles/Vol] 4.17621287 mmol/L Normal 3.5-5.1 mmol/L [email or web address] Other Complete Blood Count Auto Di ffon 11-02-2023 Basophils (Bld) [#/Vol] 0.1 10*3/uL Normal 0.0-0.2 [facility] Comment on above: Order Comment: Reaso n for Exam Atrial fibrillation Result Comment: PERF ORMED BY: [place] [address] PATHOLOGIST TRACK LAMINATING MACHINE TENDER DANNY NEAL M.D. Performed By: #### C CECILIA, BMP #### [facility] [address] [place] [address] [place] Basophils/100 WBC (Bld) 1.0 % Normal . [facility] Comment on above: Order Comment: Reaso n for Exam Atrial fibrillation Performed By: #### C CECILIA, BMP #### [facility] [address] [place] [address] [place] Eosinophils (Bld) [#/Vol] 0.1 10*3/uL Normal 0.0-0.45 [facility] Comment on above: Order Comment: Reaso n for Exam Atrial fibrillation Performed By: #### C CECILIA, BMP #### [facility] [address] [place] [address] [place] Eosinophils/100 WBC (Bld) 2.1 % Normal . [facility] Comment on above: Order Comment: Reaso n for Exam Atrial fibrillation Performed By: #### C BC, BMP #### [address] Erythrocyte distribution width (RBC) [Ratio] 14.0 % Normal 12.0-14.8 [facility] Comment on above: Order Comment: Reaso n for Exam Atrial fibrillation Performed By: #### C BC, BMP #### [address] Hematocrit (Bld) [Volume fraction] 38.8 % Normal 38.8-50.0 [facility] Comment on above: Order Comment: Reaso n for Exam Atrial fibrillation Performed By: #### C BC, BMP #### [address] Hemoglobin (Bld) [Mass/Vol] 13.2 g/dL Normal 13.0-17.0 [facility] Comment on above: Order Comment: Reaso n for Exam Atrial fibrillation Performed By: #### C BC, BMP #### [address] Lymphocytes (Bld) [#/Vol] 1.3 10*3/uL Normal 1.00-4.8 [facility] Comment on above: Order Comment: Reaso n for Exam Atrial fibrillation Performed By: #### C BC, BMP #### [address] Lymphocytes/100 WBC (Bld) 21.8 % Normal . [facility] Comment on above: Order Comment: Reaso n for Exam Atrial fibrillation Performed By: #### C BC, BMP #### [address] MCH (RBC) [Entitic mass] 31.5 pg Normal 27.5-35.2 [facility] Comment on above: Order Comment: Reaso n for Exam Atrial fibrillation Performed By: #### C BC, BMP #### [address] MCV (RBC) [Entitic vol] 92.7 fL Normal 83.5-101 [facility] Comment on above: Order Comment: Reaso n for Exam Atrial fibrillation Performed By: #### C BC, BMP #### [facility] [address] Mean Corpuscular HGB Conc 34.0 g/dL Normal 32.5-35.6 [facility] Comment on above: Order Comment: Reaso n for Exam Atrial fibrillation Performed By: #### C BC, BMP #### [facility] [address] [place] [address] [place] Monocytes (Bld) [#/Vol] 0.5 10*3/uL Normal 0.0-0.8 [facility] Comment on above: Order Comment: Reaso n for Exam Atrial fibrillation Performed By: #### C BC, BMP #### [address] Monocytes/100 WBC (Bld) 8.5 % Normal . [facility] Comment on above: Order Comment: Reaso n for Exam Atrial fibrillation Performed By: #### C BC, BMP #### [facility] [address] [place] [address] [place] Neutrophils (Bld) [#/Vol] 4.0 10*3/uL Normal 1.8-7.7 [facility] Comment on above: Order Comment: Reaso n for Exam Atrial fibrillation Performed By: #### C BC, BMP #### [place] [address] [place] Neutrophils/100 WBC (Bld) 66.6 % Normal . [facility] Comment on above: Order Comment: Reaso n for Exam Atrial fibrillation Performed By: #### C BC, BMP #### [facility] [address] [place] [address] [place] NRBC% 0.1 /100{WBC} Normal 0-0.5 [facility] Comment on above: Order Comment: Reaso n for Exam Atrial fibrillation Performed By: #### C BC, BMP #### [place] [address] [place] Platelet mean volume (Bld) [Entitic vol] 9.4 fL Normal 6.6-10.1 [facility] Comment on above: Order Comment: Reaso n for Exam Atrial fibrillation Performed By: #### C BC, BMP #### [facility] [address] [place] [address] [place] Platelets (Bld) [#/Vol] 153 10*3/uL Normal 150-450 [facility] Other Comment on above: Order Comment: Reaso n for Exam Atrial fibrillation Performed By: #### C BC, BMP #### [facility] [address] [place] [address] [place] RBC (Bld) [#/Vol] 4.19 10*6/uL Normal 3.90-5.60 [facility] Other Comment on above: Order Comment: Reaso n for Exam Atrial fibrillation Performed By: #### C BC, BMP #### [facility] [address] WBC (Bld) [#/Vol] 6.1 10*3/uL Normal 4.1-10.[address] [facility] Comment on above: Order Comment: Reaso n for Exam Atrial fibrillation Performed By: #### C BC, BMP #### [facility] [address] [place] [address] [place] Basophils (Bld) [#/Vol] 0.303351829 10*3/uL Normal 0.0-0.2 10*3/uL [facility] Other Basophils/100 WBC (Bld) 1.000 % . % [facility] Other Eosinophils (Bld) [#/Vol] 0.779471503 10*3/uL Normal 0.0-0.45 10*3/uL [facility] Other Eosinophils/100 WBC (Bld) 2.100 % . % [facility] Other Erythrocyte distribution width (RBC) [Ratio] 14.000 % Normal 12.0-14.8 % [facility] Other Hematocrit (Bld) [Volume fraction] 38.800 % Normal 38.8-50.0 % [facility] Other Hemoglobin (Bld) [Mass/Vol] 13.911902 g/dL Normal 13.0-17.0 g/dL [facility] Other Lymphocytes (Bld) [#/Vol] 1.346610811 10*3/uL Normal 1.00-4.8 10*3/uL [facility] Other Lymphocytes/100 WBC (Bld) 21.800 % . % [facility] Other MCH (RBC) [Entitic mass] 31.5000 pg Normal 27.5-35.2 pg [facility] Other MCV (RBC) [Entitic vol] 92.7000 fL Normal 83.5-101 fL [facility] Other Monocytes (Bld) [#/Vol] 0.678253492 10*3/uL Normal 0.0-0.8 10*3/uL [facility] Other Monocytes/100 WBC (Bld) 8.500 % . % [facility] Other Neutrophils (Bld) [#/Vol] 4.558788300 10*3/uL Normal 1.8-7.7 10*3/uL [facility] Other Neutrophils/100 WBC (Bld) 66.600 % . % [facility] Other Platelet mean volume (Bld) [Entitic vol] 9.4000 fL Normal 6.6-10.1 fL [facility] Other WBC (Bld) [#/Vol] 6.565019740 10*3/uL Normal 4.1-10.5 10*3/uL [facility] Other Complete Blood Count Auto Diff 6.1 10*3/uL Normal 4.1-10.5 10*3/uL [facility] Other Complete Blood Count Auto Diff 34.0 g/dL Normal 32.5-35.6 g/dL [facility] Other Complete Blood Count Auto Diff 0.1 /100{WBC} Normal 0-0.5 /100{WBC} [facility] Other PSA Screen (Yearly Only)on 01-03-2023 PSA Screen (Yearly Only) 1.940 ng/mL Normal 0.000-4.000 [facility] Comment on above: Order Comment: Reaso n for Exam Prostate cancer screening Result Comment: Seri al tumor marker results determined by assays using different manufacturers or methods may not be comparable. [facility] legal technician and method: [employer], CHEMILUMINESCENT IMMUNOASSAY. PERFORMED BY: [place] [address] PATHOLOGIST TRACK LAMINATING MACHINE TENDER DANNY NEAL M.D. Performed By: #### P SAS #### [address] Prothrombin Time INRon 06-16 INR Coag (PPP) [Relative time] 2.4 {INR} Normal [email or web address] Other Comment on above: Result Comment: INR [...] heart valves: 3 - 4.5 PERFORMED BY: [place] [address] PATHOLOGIST TRACK LAMINATING MACHINE TENDER DANNY NEAL M.D. Performed By: #### P T #### [address] [address] [facility] PT Coag (PPP) [Time] 27.8 s High 9.0-12.9 [facility] Comment on above: Performed By: #### P T #### [address] [place] [address] [facility] PT Coag (PPP) [Time] 27.800 s High 9.0-12.9 s Carole[facility] jacklyn [facility] Other Coding Summaryon 05-12-2020 Coding Summary CODING DATE: 05/12/2020 [facility] STATUS: Home PAYOR: Medicare ADMIT DX: REASON FOR VISIT DX: H93.93 [...] Horan Date Saved: 05/12/2020 02:18 pm Normal [facility] ED Clinical Summaryon 2019 ED Clinical Summary [facility] ? Urgent Care [address] [place] [address] Clinical Summary PERSON INFORMATION Name: DARIEL ZABALA Age: 80 Years Sex: MALE : 1940 MRN: Acct#: Visit Reason: UC - Ear Problem; BILAT EAR PROBLEM Arrival: 05/08/2020 09:32:00 Discharge: 05/08/2020 10:15:00 LOS: 000 00:43 Check In: 05/08/2020 09:32:00 Checkout: 05/08/2020 10:15:00 Address: [address] [place] [id number] PCP: Provider, Unlisted PROVIDER INFORMATION Provider Role [...] Adult Follow-Up: With: Address: When: [facility], [address] [place], [place] [id number] Business (1) Comments: Please follow-up with your Doctor or Dr. Arellano Medical Doctor station installer and repairer, call their offices and make ointment to be seen in 3 days or sooner for continued care, please purchase guuf-rhx-mnwvmqp Debrox which helps breakdown earwax, take all your medications as previously prescribed, drink plenty of water for hydration, and return back to urgent care center for any worsening symptoms, concerns, or complications. DIAGNOSIS: 1:Impacted cerumen of both ears Patient Understands: Yes - Patient/family/chiropractic care verbalizes understanding of instructions given Comment: Normal [facility] ED Patient Summaryon 020 ED Patient Summary [facility] ? Urgent Care [address] [place] [address] PATIENT DISCHARGE INSTRUCTIONS Patient Information Name: DARIEL ZABALA Age: 80 Years Date of : 1940 Reason For Visit: UC - Ear Problem; BILAT EAR PROBLEM Arrival Time: 05/08/2020 09:32:00 Primary Care Physician: Provider, Unlisted Attending Physician: Larry Billingsley PA-C Comment: Patient Education With: Address: When: Andrés Arellano [facility], [address] [place] [address] Business (1) Comments: Please follow-up with your Doctor or Dr. Arellano Medical Doctor station installer and repairer, call their offices and make ointment to be seen in 3 days or sooner for continued care, please purchase jiky-gud-saisgso Debrox which helps breakdown earwax, take all [...] Follow these instructions at home: ? Take dkdt-tve-bwfvgky and prescription medicines only as told by [...] clean them according to instructions from the legal technician and your health care provider. Contact a [...] 12/08/2005 Document Revised: 10/12/2018 Document Reviewed: 01/11/2018 [employer] Patient Education ? 2019 [employer] Medication Information: The exam and treatment you received today in the [facility] were for an urgent problem and are not intended as complete care. It is important for you to follow up with a doctor, nurse practitioner, or physician?s payroll and benefits assistant for ongoing care. If your symptoms [...] so we can reach you if necessary. [facility] Emergency Department has provided you with a complete list of medications post discharge. Please inform your lard mixer/provider of your visit and for further instruction [...] both ears (H61.23) UC - Ear Problem ([id number]) If you received any narcotics, sedation, or [...] for Disease Control and Prevention July 2014 [facility] Patient Handouton 05-08-2020 Patient Handout Patient [...] Follow these instructions at home: ? Take tupg-xco-igwpkbt and prescription medicines only as told by [...] clean them according to instructions from the legal technician and your health care provider. Contact a [...] 12/08/2005 Document Revised: 10/12/2018 Document Reviewed: 01/11/2018 [employer] Patient Education ? 2019 [employer] Normal [facility] [address] 020 Urgent Care Record [facility] ? Urgent Care [address] [place] [address] PATIENT DISCHARGE INSTRUCTIONS Patient Information Name: DARIEL ZABALA Age: 80 Years Date of : 1940 Reason For Visit: UC - Ear Problem; BILAT EAR PROBLEM Arrival Time: 05/08/2020 09:32:00 Primary Care Physician: Provider, Unlisted Attending Physician: Larry Billingsley PA-C Comment: Visit Diagnosis: Diagnoses This Visit Impacted cerumen of both ears (H61.23) UC - Ear Problem ([id number]) If you received any narcotics, sedation, or [...] legal documents With: Address: When: Andrés Arellano [facility], [address] [place] [id number] Business (1) Comments: Please follow-up with your Doctor or Dr. Arellano, Medical Doctor station installer and repairer, call their offices and make ointment to be seen in 3 days or sooner for continued care, please purchase nrbx-gat-nuxisuo Debrox which helps breakdown earwax, take all your medications as previously prescribed, drink plenty of water for hydration, and return back to urgent care center for any worsening symptoms, concerns, or complications. Medication Information: The exam and treatment you received today in the [facility] were for an urgent problem and are not intended as complete care. It is important for you to follow up with a doctor, nurse practitioner, or physician?s payroll and benefits assistant for ongoing care. If your symptoms [...] so we can reach you if necessary. [facility] has provided you with a complete list of medications post discharge. Please inform your lard mixer/provider of your visit and for further instruction [...] Follow these instructions at home: ? Take nvvt-pbq-qttewhw and prescription medicines only as told by [...] clean them according to instructions from the legal technician and your health care provider. Contact a [...] 12/08/2005 Document Revised: 10/12/2018 Document Reviewed: 01/11/2018 [employer] Patient Education ? 2019 [employer] Viruses or Bacteria What?s got you [...] Disease Control and Prevention July 2014 Normal [facility] Vital Signs Date Time Vital Sign Value Performing Clinician Facility 10-30-2024 10:36-0500 Diastolic blood pressure 67 mm[Hg] Axel Hernández [facility] 10-30-2024 10:36-0500 Heart rate 57 /min Axel Hernández [facility] 10-30-2024 10:36-0500 Mean blood pressure 86 mm[Hg] Axel Catherine [facility] 10-30-2024 10:36-0500 Systolic blood pressure 124 mm[Hg] Axel Hernández [facility] 10-30-2024 10:34-0500 Heart rate 56 /min Axel Hernández [facility] 10-30-2024 10:34-0500 SaO2% (BldA) [Mass fraction] 100 % Axel Hernández [facility] 10-30-2024 10:34-0500 Diastolic blood pressure 83 mm[Hg] Axel Hernández [facility] 10-30-2024 10:34-0500 Mean blood pressure 105 mm[Hg] Axel Hernández [facility] 10-30-2024 10:34-0500 Systolic blood pressure 148 mm[Hg] Axel Catherine [facility] 10-03-2024 10:58-0500 Body height 176.5 cm Axel Catherine ELLIS Work Phone: [facility] 10-03-2024 10:58-0500 Body mass index (BMI) [Ratio] 26.64 kg/m2 Axel Hernández DO Work Phone: [facility] 10-03-2024 10:58-0500 Body temperature 98.1 [degF] Axel Hernández DO Work Phone: [facility] 10-03-2024 10:58-0500 Body weight 83.01 kg Axel Hernández DO Work Phone: [facility] 08-28-2024 14:47-0400 Blood Pressure Location Davie Mourany [facility] [place] 08-28-2024 14:47-0400 Diastolic blood pressure 75 mm[Hg] Davie Mourany [facility] [place] 08-28-2024 14:47-0400 Heart rate 65 /min Davie Mourany [facility] [place] 08-28-2024 14:47-0400 Respiratory rate 16 /min Davie Mourany [facility] [place] 08-28-2024 14:47-0400 Systolic blood pressure 119 mm[Hg] Davie Mourany [facility] 06-11-2024 12:48-0400 Diastolic blood pressure 78 mm[Hg] Kashif Kirnus [facility] 06-11-2024 12:48-0400 Heart rate 70 /min Kashif Kirnus [facility] 06-11-2024 12:48-0400 Respiratory rate 18 /min Kashif Kirnus [facility] 06-11-2024 12:48-0400 SaO2% (BldA) [Mass fraction] 97 % Kashif Kirnus [facility] 06-11-2024 12:48-0400 Systolic blood pressure 138 mm[Hg] Kashif Kirnus [facility] 05-30-2024 13:31-0400 Blood Pressure Location Dixon Dubose [facility] 05-30-2024 13:31-0400 Diastolic blood pressure 70 mm[Hg] Dixon Dubose [facility] 05-30-2024 13:31-0400 Heart rate 75 /min Dixon Dubose [facility] 05-30-2024 13:31-0400 Respiratory rate 18 /min Dixon Dubose [facility] 05-30-2024 13:31-0400 SaO2% (BldA) [Mass fraction] 95 % Dixon Dubose [facility] 05-30-2024 13:31-0400 Systolic blood pressure 130 mm[Hg] Dixon Dubose [facility] 04-20-2024 13:17-0400 Diastolic blood pressure 78 mm[Hg] Kashif Costanus [facility] 04-20-2024 13:17-0400 Heart rate 62 /min Kashif Kirnus [facility] 04-20-2024 13:17-0400 SaO2% (BldA) [Mass fraction] 97 % Kashif Kirnus [facility] 04-20-2024 13:17-0400 Systolic blood pressure 138 mm[Hg] Kashif Kirnus [facility] 03-26-2024 14:30-0400 Diastolic blood pressure 64 mm[Hg] Axel Hernández [facility] 03-26-2024 14:30-0400 Heart rate 50 /min Axel Hernández [facility] 03-26-2024 14:30-0400 Respiratory rate 16 /min Axel Hernández [facility] 03-26-2024 14:30-0400 SaO2% (BldA) [Mass fraction] 98 % Axel Hernández [facility] 03-26-2024 14:30-0400 Systolic blood pressure 128 mm[Hg] Axel Hernández [facility] 03-26-2024 13:31-0400 Heart rate 54 /min Axel Hernández [facility] 03-26-2024 13:31-0400 SaO2% (BldA) [Mass fraction] 97 % Axel Catherine [facility] 03-26-2024 13:31-0400 Respiratory rate 16 /min Axel Hernández [facility] 03-26-2024 13:30-0400 Body temperature 97.34 [degF] Axel Catherine [facility] 03-26-2024 13:29-0400 Blood Pressure Location Axel Hernández [facility] 03-26-2024 13:29-0400 Diastolic blood pressure 70 mm[Hg] Axel Catherine [facility] 03-26-2024 13:29-0400 Mean blood pressure 88 mm[Hg] Axel Catherine [facility] 03-26-2024 13:29-0400 Systolic blood pressure 125 mm[Hg] Axel Catherine [facility] 03-26-2024 13:20-0400 Body temperature 97.52 [degF] Axel Catherine [facility] 03-26-2024 13:20-0400 Diastolic blood pressure 63 mm[Hg] Axel Catherine [facility] 03-26-2024 13:20-0400 Heart rate 54 /min Axel Catherine [facility] 03-26-2024 13:20-0400 Mean blood pressure 77 mm[Hg] Axel Catherine [facility] 03-26-2024 13:20-0400 Respiratory rate 15 /min Axel Catherine [facility] 03-26-2024 13:20-0400 SaO2% (BldA) [Mass fraction] 97 % Axel Catherine [facility] 03-26-2024 13:20-0400 Systolic blood pressure 104 mm[Hg] Axel Catherine [facility] 03-26-2024 13:15-0400 Mean blood pressure 73 mm[Hg] Axel Catherine [facility] 03-26-2024 13:15-0400 Respiratory rate 15 /min Axel Catherine [facility] 03-26-2024 13:10-0400 Mean blood pressure 72 mm[Hg] Axel Catherine [facility] 03-26-2024 13:10-0400 Respiratory rate 11 /min Axel Catherine [facility] 03-26-2024 12:55-0400 Body temperature 97.52 [degF] Axel Catherine [facility] 03-26-2024 12:50-0400 Respiratory rate 1 /min Axel Catherine [facility] 03-26-2024 09:36-0400 Blood Pressure Location Axel Catherine [facility] 03-26-2024 09:36-0400 Mean blood pressure 112 mm[Hg] Axel Catherien [facility] 03-26-2024 09:34-0400 Mean blood pressure 97 mm[Hg] Axel Catherine [facility] 03-26-2024 09:34-0400 Body temperature 97.34 [degF] Axel Catherine [facility] 03-26-2024 09:34-0400 Blood Pressure Location Axel Catherine [facility] 03-26-2024 09:34-0400 Heart rate 50 /min Axel Hernández [facility] 03-06-2024 08:11-0400 Blood Pressure Location Axel Hernández [facility] 03-06-2024 08:11-0400 Diastolic blood pressure 74 mm[Hg] Axel Hernández [facility] 03-06-2024 08:11-0400 Heart rate 56 /min Axel Hernández [facility] 03-06-2024 08:11-0400 Mean blood pressure 98 mm[Hg] Axel Hernández [facility] 03-06-2024 08:11-0400 Systolic blood pressure 147 mm[Hg] Axel Hernández [facility] 03-06-2024 08:11-0400 Heart rate 57 /min Axel Hernández [facility] 03-06-2024 08:11-0400 SaO2% (BldA) [Mass fraction] 98 % Axel Hernández [facility] 03-06-2024 08:10-0400 Blood Pressure Location Axel Hernández [facility] 03-06-2024 08:10-0400 Body temperature 98.06 [degF] Axel Hernández [facility] 03-06-2024 08:10-0400 Diastolic blood pressure 73 mm[Hg] Axel Catherine [facility] 03-06-2024 08:10-0400 Mean blood pressure 92 mm[Hg] Axel Catherine [facility] 03-06-2024 08:10-0400 Systolic blood pressure 129 mm[Hg] Axel Catherine [facility] 03-06-2024 08:10-0400 Respiratory rate 18 /min Axel Catherine [facility] 11-18-2023 11:00-0500 Body height 180.34 cm Jada Presley [facility] Other 11-18-2023 11:00-0500 Body mass index (BMI) [Ratio] 25.38 kg/m2 Jadaendy Rene Other [facility] Other 11-18-2023 11:00-0500 Body temperature 97.6 [degF] Jadamary Rene Other [facility] Other 11-18-2023 11:00-0500 Body weight 82.56 kg Jadaendy Rene Other [facility] Other 11-18-2023 11:00-0500 Diastolic blood pressure 80 mm[Hg] Jadamary Rene Other [facility] Other 11-18-2023 11:00-0500 Respiratory rate 18 /min Jadamary Rene Other [facility] Other 11-18-2023 11:00-0500 SaO2% (BldA) [Mass fraction] 99 % Jadamary Rene Other [facility] Other 11-18-2023 11:00-0500 Systolic blood pressure 132 mm[Hg] Jadaendy Rene Other [facility] Other 11-02-2023 13:00-0500 Body height 180.34 cm Jadaendy Rene Other [facility] Other 11-02-2023 13:00-0500 Body mass index (BMI) [Ratio] 24.4 kg/m2 Jadamary Rene Other [facility] Other 11-02-2023 13:00-0500 Body weight 79.38 kg Jada Rene Other [facility] Other 11-02-2023 13:00-0500 Diastolic blood pressure 82 mm[Hg] Jada Rene Other [facility] Other 11-02-2023 13:00-0500 Respiratory rate 18 /min Jada Rene Other [facility] Other 11-02-2023 13:00-0500 SaO2% (BldA) [Mass fraction] 97 % Jada Rene Other [facility] Other 11-02-2023 13:00-0500 Systolic blood pressure 138 mm[Hg] Jada Rene Other [facility] Other 09-21-2023 10:00-0500 Body height 180.34 cm Jada Rene Other [facility] Other 09-21-2023 10:00-0500 Body mass index (BMI) [Ratio] 25.81 kg/m2 Jada Rene Other [facility] Other 09-21-2023 10:00-0500 Body weight 83.96 kg Jada Rene Other [facility] Other 09-21-2023 10:00-0500 Diastolic blood pressure 70 mm[Hg] Jada Rene Other [facility] Other 09-21-2023 10:00-0500 Respiratory rate 18 /min Jada Rene Other [facility] Other 09-21-2023 10:00-0500 SaO2% (BldA) [Mass fraction] 98 % Jadaendy Rene Other [facility] Other 09-21-2023 10:00-0500 Systolic blood pressure 140 mm[Hg] Jada Edgard Other [facility] Other 06-16-2023 11:00-0400 Body height 180.34 cm Jadamary Rene Other [facility] Other 06-16-2023 11:00-0400 Body mass index (BMI) [Ratio] 23.79 kg/m2 Jada Rene Other [facility] Other 06-16-2023 11:00-0400 Body weight 77.38 kg Jada Rene Other [facility] Other 06-16-2023 11:00-0400 Diastolic blood pressure 64 mm[Hg] Jada Rene Other [facility] Other 06-16-2023 11:00-0400 Respiratory rate 18 /min Jada Rene Other [facility] Other 06-16-2023 11:00-0400 SaO2% (BldA) [Mass fraction] 98 % Jadaendy Rene Other [facility] Other 06-16-2023 11:00-0400 Systolic blood pressure 118 mm[Hg] Jadaendy Rene Other [facility] Other Encounters Encounter Date Encounter Type Care Provider Facility Start: 05-02-2025 ambulatory Kylah Medina Facility :[facility] [place] Start: 11-19-2024 End: 11-19-2024 Clinisync Result Encounter Axel Hernández DO Work Phone: [facility] Unsolicited Start: 11-19-2024 End: 11-19-2024 Clinisync Result Encounter Axel Hernández DO Work Phone: [facility] Unsolicited Start: 11-13-2024 ambulatory Kylah Medina Facility :[facility] [place] Start: 11-12-2024 End: 11-12-2024 Lab Drop off Kylah Medina [facility] Start: 11-12-2024 End: 11-12-2024 ambulatory Kylah Medina Facility:[facility] [place] [facility] Start: 11-01-2024 End: 11-01-2024 ambulatory Kylah Medina Facility:[facility] [place] Start: 10-30-2024 End: 10-30-2024 ambulatory Axel Hernández Facility:[facility] Start: 10-30-2024 End: 10-30-2024 Patient encounter procedure Axel Hernández [facility] Start: 10-03-2024 End: 10-03-2024 Bamboo flowsheet Axel Hernández DO Work Phone: [facility] Start: 10-03-2024 End: 10-03-2024 Bamboo flowsheet Axel Hernández DO Work Phone: [facility] Start: 10-03-2024 End: 10-03-2024 Patient encounter procedure Axel Hernández DO Work Phone: [facility] Comment on above: Pre-op testing (Prim ting Dx); Right hand pain; Arm weakness Start: 10-03-2024 End: 10-03-2024 Patient encounter status Axel Hernández DO Work Phone: [facility] Start: 10-03-2024 End: 10-03-2024 ambulatory AXEL HERNÁNDEZ Not Available Start: 09-28-2024 End: 09-28-2024 Bamboo flowsheet Shala Farrell MD Work Phone: [facility] Start: 09-28-2024 End: 09-28-2024 Bamboo flowsheet Shala Farrell MD Work Phone: [facility] Start: 09-28-2024 End: 09-28-2024 Patient encounter procedure Shala Farrell MD Work Phone: [facility] Comment on above: Pain in both upper e xtremities (Primary Dx); Carpal tunnel syndrome, bilateral Start: 09-28-2024 End: 09-28-2024 ambulatory SHALA FARRELL Not Available Start: 09-10-2024 End: 09-10-2024 ambulatory Kylah Medina Facility:[facility] [place] Start: 08-28-2024 End: 08-28-2024 ambulatory Davie Vargas Facility: [place] Start: 08-28-2024 End: 08-28-2024 Patient encounter procedure Davie Vargas [facility] [place] Start: 08-20-2024 End: 08-20-2024 Telephone encounter Shala Farrell MD Work Phone: [facility] Start: 08-13-2024 End: 08-13-2024 ambulatory Nathaniel Bonilla MD Facility:[facility] [place] Start: 08-07-2024 End: 08-07-2024 ambulatory Kylah Medina Facility:[facility] [place] [facility] Start: 07-31-2024 End: 07-31-2024 ambulatory Kylah Medina Facility:[facility] [place] [facility] Start: 07-24-2024 End: 07-24-2024 ambulatory Kylah Medina Facility:[facility] [place] [facility] Start: 07-23-2024 [facility]ulatory [facility] Start: 07-05-2024 ambulatory Kylah Medina Facility:[facility] [place] Start: 07-03-2024 End: 07-03-2024 ambulatory Kylah Medina Facility: [facility] Start: 06-20-2024 End: 06-20-2024 ambulatory AXEL HERNÁNDEZ Not Available Start: 06-11-2024 End: 06-11-2024 ambulatory XXXX NONE Facility:[facility] Start: 06-11-2024 End: 06-11-2024 Patient encounter procedure Kashif Barnett [facility] Start: 05-30-2024 End: 05-30-2024 ambulatory Dixon Dubose Facility:[facility] Start: 05-30-2024 End: 05-30-2024 Patient encounter procedure Dixon Dubose [facility] Start: 05-21-2024 End: 05-21-2024 ambulatory MD Kashif Barnett Facility:[facility] Start: 05-21-2024 End: 05-21-2024 Patient encounter procedure Kashif Barnett [facility] Start: 05-03-2024 End: 05-03-2024 ambulatory MD Kylah Medina Facility: [facility] Start: 05-01-2024 End: 05-01-2024 ambulatory MD Kashif Barnett Facility:[facility] Start: 05-01-2024 End: 05-01-2024 Patient encounter procedure Kashif Barnett [facility] Start: 05-01-2024 End: 05-01-2024 Lab Drop off Kylah Medina [facility] Start: 05-01-2024 End: 05-01-2024 ambulatory MD Kylah Medina Facility:[facility] Start: 04-20-2024 End: 04-20-2024 ambulatory MD Kashif Barnett Facility:[facility] Start: 04-20-2024 End: 04-20-2024 Patient encounter procedure Kashif Barnett [facility] Start: 04-04-2024 End: 04-04-2024 ambulatory AXEL HERNÁNDEZ Not Available Start: 03-26-2024 End: 03-26-2024 Admission to same day surgery center Axel Serina Hernández [facility] Start: 03-26-2024 End: 03-26-2024 ambulatory Axel Hernández Facility:[facility] Start: 03-20-2024 End: 03-20-2024 ambulatory MD Kylah Medina Facility:[facility] Start: 03-08-2024 End: 03-08-2024 ambulatory MD Kylah Medina Facility:[facility] Start: 03-06-2024 End: 03-06-2024 ambulatory Axel Hernández Facility:[facility] Start: 03-06-2024 End: 03-06-2024 Patient encounter procedure Axel Serina Hernández [facility] Start: 02-15-2024 End: 02-15-2024 ambulatory AXEL HERNÁNDEZ Not Available Start: 02-15-2024 End: 02-15-2024 ambulatory AXEL HERNÁNDEZ Not Available Start: 02-02-2024 End: 02-02-2024 ambulatory MD Kylah Medina [facility] Start: 12-06-2023 End: 12-06-2023 ambulatory Jada Rene Other [facility] Other Start: 12-06-2023 Telephone encounter Jada Rene [facility] Start: 12-02-2023 End: 12-02-2023 ambulatory Jada Rene Other [facility] Other Start: 12-02-2023 Telephone encounter Jada Rene [facility] [place] Start: 12-01-2023 End: 12-01-2023 Lab Drop off Kylah Medina [facility] Start: 12-01-2023 End: 12-01-2023 ambulatory MD Kylah Medina Facility:[facility] Start: 12-01-2023 ambulatory MD Kylah Medina Facility :[facility] Start: 11-18-2023 End: 11-18-2023 ambulatory Jada Rene Other [facility] Other Start: 11-18-2023 Office outpatient vi sit 25 minutes Jadamary Rene [facility] [place] Start: 11-02-2023 End: 11-02-2023 ambulatory Jada Rene [facility] Other Start: 11-02-2023 Office outpatient vi sit 25 minutes Jadamary Rene [facility] [place] Start: 11-02-2023 Telephone encounter Jada Rene [facility] [place] Start: 10-28-2023 End: 10-28-2023 ambulatory Jadaendy Rene Other [facility] Other Start: 10-28-2023 Telephone encounter Jada Rene [facility] [place] Start: 09-30-2023 End: 09-30-2023 Nurse Triage Venessa Riggins RN NURSE I&C TECHNICIAN Comment on above: Refill Request Start: 09-30-2023 Telephone encounter Jadamary Rene [facility] [place] Start: 09-21-2023 End: 09-21-2023 ambulatory Jadaendy Rene Other [facility] Other Start: 09-21-2023 Office outpatient vi sit 25 minutes Jadaendy Rene [facility] [place] Start: 08-29-2023 End: 08-29-2023 ambulatory Jadaendy Rene Other [facility] Other Start: 08-29-2023 Telephone encounter Jada Rene [facility] Start: 08-26-2023 End: 08-26-2023 ambulatory Jada Rene Other [facility] Other Start: 08-26-2023 Telephone encounter Jada Rene [facility] Start: 08-08-2023 End: 08-08-2023 ambulatory Jada Rene Other [facility] Other Start: 08-08-2023 Telephone encounter Jada Rene [facility] Start: 07-27-2023 End: 07-27-2023 ambulatory Jada Rene Other [facility] Other Start: 07-27-2023 Telephone encounter Jada Rene [facility] Start: 06-16-2023 End: 06-16-2023 ambulatory Jada Rene [facility] Other Start: 06-16-2023 Office outpatient ne w 45 minutes Jada Rene [facility] Start: 06-16-2023 Telephone encounter Jada Rene [facility] Procedures Date Procedure Procedure Detail Performing Clinician Start: 11-19-2024 [facility] CAPILLARY GLUCOSE POC Axel Hernández DO Work Phone: Start: 03-26-2024 Decompression of med carlos nerve Axel Hernández Decompression of med carlos nerve Axel Hernández Release of trigger finger Mi jacquie Hernández Surgery (qualifier value) Sa fariha Medina Plan of Treatment Date Care Activity Detail Author Start: 11-28-2024 End: 11-28-2024 Patient encounter procedure 11/28/2024 1:00 PM EST Office Visit [facility] [address] [place] [address] Jose L Thompson, RN TRANSFER [address] [place] [address] [facility] Start: 10-03-2024 End: 10-03-2025 ECG 12 lead ECG 12 lead ECG Routine Pre-op testing Expected: 10/03/2024 (Approximate), Expires: 10/03/2025 [facility] Work Phone: Comment on above: Expected: 10/03/2024 (Approximate), Expires: 10/03/2025 Start: 10-03-2024 End: 10-03-2024 Patient encounter procedure 10/03/2024 10:45 AM EST Office Visit [facility] [address] [facility] [address] [place] [address] Axel Hernández, DO [address] [place] [address] Right hand pain (Primary Dx); Arm weakness [facility] Comment on above: Right hand pain (Holly ayaan Dx); Arm weakness Start: 07-15-2024 Influenza vaccination Influenza Vacc ine (#1) [facility] Start: 07-15-2023 Influenza vaccination Influenza Vacc ine (#1) [facility] Start: 11-14-2022 Advance Directive Discussion Advance Directive Discussion [facility] Start: 11-14-2022 Depression Assessment Depression Ass essment [facility] Start: 03-31-2016 Pneumococcal Vaccine : 65+ (2 - PPSV23 or PCV20) Pneumococcal Vaccine: 65+ (2 - PPSV23 or PCV20) [facility] Start: 03-31-2016 Pneumococcal Vaccine : 65+ Years (2 of 2 - PPSV23 or PCV20) Pneumococcal Vaccine: 65+ Years (2 of 2 - PPSV23 or PCV20) [facility] Start: 03-24-2016 Hepatitis B surface antibody level LDL Cholesterol [facility] Start: 09-24-2015 Hemoglobin A1c/Hemoglobin.total in Blood HbA1C [facility] Start: 08-01-2015 3 comp foot exam completed Diabetic Foot Exam [facility] Start: 07-25-2015 Hepatitis B screening Urine Albumin:Creatinine Ratio [facility] Start: 02-01-2015 Urine microalbumin profile DTaP,Tdap,Td Vaccine (1 - Tdap) [facility] Start: 10-24-2013 Shingrix Vaccine (2 of 3) Shingrix Vaccine (2 of 3) [facility] Start: 09-14-2012 Hepatitis C antibody , confirmatory test Dilated Retinal Exam [facility] Start: 2002 RSV Vaccine (1 - 1-d ose 60+ series) RSV Vaccine (1 - 1-dose 60+ series) [facility] Start: 1942 Covid-19 Vaccine (#1) Covid-19 Vacci ne (#1) [facility] Immunizations Immunization Date Immunization Notes Care Provider Sandrita escobar 09-29-2024 influenza virus vaccine, unspecified formulation Axel Hernández DO Work Phone: [facility] 09-21-2023 Prevnar 20 Jada Rene Other [facility] 08-19-2023 Flu Shot - Documentation Purposes Only Jadaendy Rene Other [facility] Other 08-19-2023 influenza virus vaccine, unspecified formulation Kylah Medina [facility] 08-14-2022 influenza, seasonal, injectable Jadaendy Rene Other [facility] Other 03-31-2015 pneumococcal conjuga te vaccine, 13 valent Jada Rene Other [facility] 08-02-2014 influenza, high dose seasonal, preservative-free Venessa Riggins RN [facility] 08-02-2014 influenza virus vaccine, unspecified formulation Venessa Riggins RN [facility] 08-29-2013 zoster vaccine, live Venessa terrell RN [facility] 08-09-2013 influenza virus vaccine, unspecified formulation Venessa Riggins RN [facility] 07-31-2012 influenza virus vaccine, unspecified formulation Venessa Riggins RN [facility] Work Phone: 03-07-2012 tetanus and diphther ia toxoids, adsorbed, preservative free, for adult use (2 Lf of tetanus toxoid and 2 Lf of diphtheria toxoid) Venessa Riggins RN [facility] Work Phone: 08-07-2011 influenza virus vaccine, unspecified formulation Venessa Riggins RN [facility] Work Phone: NEGATED: Highlighted row has not occurred!08-28-2024 influenza virus vaccine, unspecified formulation Davie Vargas [facility] [place] Payers Date Payer Category Payer Medicare (Managed Care) [employer] [id number] 2023 Unknown [employer] D [facility] YouOS [id number] 2023-Present [address] [place] [address] [id number] 2023 Unknown [id number] [id number] 2023 Medicare [id number] 2.16.840.1.530280.19 2023 Self-pay 2023 Medicare [id number] 1942 Unknown [id number] 2.16.840.1.971363.3.579. 2.72 1942 Unknown [id number] 2.16.840.1.690540.3.579. 2. 1942 Unknown [id number] 2.16.840.1.239605.3.579. 2. 1942 Unknown [id number] 2.16.840.1.721537.3.579. 2. 1942 Unknown [id number] 2.16.840.1.362253.3.579. 2. 1942 Unknown [id number] 2.16.840.1.367970.3.579. 2 1942 Unknown [id number] 2.16.840.1.055373.3.579. 2 1942 Unknown [id number] 2.16.840.1.158021.3.579. 2 1942 Unknown [id number] 2.16.840.1.380743.3.579. 2 1942 Unknown [id number] 2.16.840.1.414490.3.579. 2 1942 Unknown [id number] 2.16.840.1.555683.3.579. 2 1942 Unknown [id number] 2.16.840.1.251901.3.579. 2 1942 Unknown [id number] 2.16.840.1.542410.3.579. 2. 1942 Unknown [id number] 2.16.840.1.975581.3.579. 2 1942 Unknown [id number] 2.16.840.1.959543.3.579. 2.196 1942 Unknown [id number] 2.16.840.1.843741.3.579. 2.1259 1942 Unknown [id number] 2.16.840.1.600792.3.579. 2.1258 1942 Unknown [id number] 2.16.840.1.397355.3.579. 2.1258 1942 Unknown [id number] 2.16.840.1.524933.3.579. 2.1258 1942 Unknown [id number] 2.16.840.1.218710.3.579. 2.1258 1942 Unknown [id number] 2.16.840.1.439259.3.579. 2.1258 1942 Unknown [id number] 2.16.840.1.589678.3.579. 2.1258 1942 Unknown [id number] 2.16.840.1.769143.3.579. 2. 1942 Unknown [id number] 2.16.840.1.130765.3.579. 2. 1942 Unknown [id number] 2.16.840.1.199819.3.579. 2. 1942 Unknown [id number] 2.16.840.1.231712.3.579. 2. 1942 Unknown [id number] 2.16.840.1.005900.3.579. 2. 1942 Unknown [id number] 2.16.840.1.083637.3.579. 2. 1942 Unknown [id number] 2.16.840.1.673920.3.579. 2. 1942 Unknown [id number] 2.16.840.1.489518.3.579. 2. 1942 Unknown [id number] 2.16.840.1.568912.3.579. 2. 1942 Unknown [id number] 2.16.840.1.822716.3.579. 2.727 1942 Unknown [id number] 2.16.840.1.486828.3.579. 2. 1940 Unknown [id number] 1940 Unknown [id number] 1940 Unknown [id number] 2. 1940 Unknown [id number] [id number] Medicare [id number] Unknown [id number] Unknown [id number] Social History Date Type Detail Facility Start: 06-20-2024 End: 10-03-2024 Sex Assigned At [facility] Start: 12-01-2023 End: 02-15-2024 Tobacco smoking status NHIS Never smoked tobacco [facility] Start: 06-28-2022 Alcohol intake Current drinke r of alcohol (finding) [facility] Start: 06-28-2022 End: 10-03-2024 Alcohol intake [facility] Start: 1940 Sex Assigned At Not on file C [facility] Tobacco smoking status Never [facility] [place] Start: 02-15-2024 Tobacco use and exposure Smokeless tobacco non-user [facility] Medical Equipment Procedure Code Equipment Code Equipment Origin al Text Equipment Identifier Dates Test blood sugar(s) 2 times daily. Dx: non. Insulin: No dx 250.00 Start: 08-24-2013 Comment on above: Test blood sugar(s) 2 times daily. Dx: non. Insulin: No dx 250.00 Functional Status Date Assessment Result Facility 10-30-2024 Functional Status No [facility] 08-28-2024 Functional Status N/A [facility] 06-11-2024 Functional Status N/A [facility] 05-30-2024 Functional Status No [facility] 04-20-2024 Functional Status N/A [facility] 03-06-2024 Functional Status No [facility] Clinical Notes 03-10-2010 to 11-12-2024 Shala Farrell MD - 09/28/2024 9:30 AM ESTTelephone Encounter - Miguel Moe - 08/20/2024 10:50 AM EDTTelephone Encounter - Miguel Moe - 08/20/2024 10:50 AM EDT Note Date & Type Note Facility 11-12-2024 Note Patient Education - Text [place], [place] [facility] CARPAL TUNNEL RELEASE INSTRUCTIONS Post-Operative Week One You will be in a soft dressing from mid palm to forearm. Please remove dressing two days after surgery. At that point, clean daily with peroxide or betadine and place daily fresh bandaids. Cover for showers with waterproof bandaid, op site occlusive dressing or cover with bag. Please use brace for 1-2 weeks for sleep or lifting (limit 5 pounds until stitches are removed at next office visit - see attached card for date/time). You may bend your fingers and thumb gently on post-operative day two. Do not be alarmed if there is some bruising or swelling in your hand. This frequently occurs after a surgical procedure on the hand or wrist. Report increased redness, pain or drainage. Avoid squeezing objects against resistance, lifting, twisting or climbing. Driving is legal. But if you are involved in an accident, you must be able to prove that you maintained full control of your vehicle. For this reason, it is advised that you do not drive until your strength returns. Similarly, all sports activities are discouraged, at least until your first post-operative visit at which time we will discuss how and when to resume sports. Post-Operative Week Two You will be seen in the office between 10 and 14 days after surgery. At this time the incision will be checked and have sutures removed. Advil, Aleve, or Tylenol should be adequate for pain, if needed. Do not bend or straighten your wrist excessively, no squeezing. Continue the exercises for your fingers, elbow and shoulder outlined above. You may drive, type or write as long as you are comfortable. The incision may be become thickened. To soften the scar it is helpful after suture removal to apply any type lotion such as lanolin, Dulce cream or cocoa butter. This should be done with gentle massage for five - ten minutes twice a day until the scar softens. Oftentimes, it takes several months for the scar to become completely normal. Some scar sensitivity may persist for up to four to six months, generally not longer. Post-Operative Weeks Three and Four After the sutures are removed, you will begin bending and straightening your wrist to improve motion. Please begin to squeeze either a sponge or Nerf ball lightly and regularly to regain strength in your hand. You may lift objects with this hand, which weigh less than five pounds. OVER Post-Operative Weeks Five and Six If there is still some loss of mobility in the wrist, you may begin doing wrist exercises for stretching. You may return to non-contact recreational activities as tolerated. It is recommended that you avoid contact sports until at least six weeks after surgery. After Six Week You may return to any activity as tolerated. REMEMBER, in some patients it takes several months for: The scar tenderness to resolve. Weakness to resolve The ???pins and needles??? to resolve. Patient Signature Axel Hernández, DO [facility] [address] [place] [address] Reviewed: 04-22 [facility] 11-12-2024 Note Nurse Consultation N [place] Reason for Visit Pt presents today for lab draw Assessment/Plan 1. Hyperlipidemia (E78.5: Hyperlipidemia, unspecified) 2. 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 Hypothyroid (E03.9: Hypothyroidism, unspecified) Medications atenolol 25 mg Tab, See Instructions, 1 refills CoQ10, See Instructions, PRN D3, See Instructions finasteride 5 mg Tab, 5 mg= 1 tab(s), Oral, Daily, 1 refills fluticasone Nasal 0.05 mg/inh [place], See Instructions, Self Directed gabapentin 300 mg Cap, 300 mg= 1 cap(s), Oral, Daily, 1 refills glimepiride 2 mg Tab, See Instructions Jantoven 5 mg oral tablet, 5 mg= 1 tab(s), Oral, Daily omeprazole 40 mg Cap-DR, 40 mg= 1 cap(s), Oral, Daily, 1 refills pravastatin 40 mg Tab, 40 mg= 1 tab(s), Oral, Daily, 3 refills sildenafil 100 mg Tab, 100 mg= 1 tab(s), Oral, Daily, PRN Sodium Chloride 1 g oral tablet, See Instructions Synthroid 25 mcg(0.025 mg) Tab, See Instructions tamsulosin 0.4 mg Cap, 0.4 mg= 1 cap(s), Oral, Daily, 1 refills Turmeric 500 mg oral capsule, 500 mg= 1 cap(s), Oral, Daily, PRN Vitamin B12, 50 mcg, Oral, Daily, PRN Allergies No Known Medication Allergies Immunizations Vaccine Date Status Comments influenza virus vaccine, inactivated 09/29/2024 Recorded influenza virus vaccine, inactivated - Not Given Patient Refuses pneumococcal 20-valent conjugate vaccine 09/21/2023 Recorded influenza virus vaccine, inactivated 08/19/2023 Recorded pneumococcal 13-valent vaccine 03/31/2015 Recorded influenza virus vaccine, inactivated 08/02/2014 Recorded [facility] 09-28-2024 History of Present illness Narrative [facility] Patient: Dariel Zabala [address], [address] , Sex: 1940, Male [place], [place] [address] Height: 180 cm Ref Phys: Hernández fax Electroneuromyogram (ENMG) Test Date: 2024-09-28 Patient Complaints: Numbness, pain L>RU I-III. S/p CT release R. Nerve Conduction Studies Anti Sensory Summary Table Site NR Peak (ms) Norm Peak (ms) P-T* Amp ( V) Norm P-T Amp Site1 Site2 Delta-0 (ms) Dist (cm) Sourav (m/s) Norm Sourav (m/s) Left Median Anti Sensory (2nd Digit) Wrist NR >4.59 Wrist 2nd Digit 19.0 >48.9 Right Median Anti Sensory (2nd Digit) dispersed Wrist 6.3 17.0 >4.59 Wrist 2nd Digit 5.3 18.5 35 >48.9 Left Radial Anti Sensory (Snuff Box) Wrist 2.8 19.7 >9.99 Wrist Snuff Box 2.3 12.0 52 >55.9 Right Radial Anti Sensory (Snuff Box) Wrist 2.7 11.1 >9.99 Wrist Snuff Box 2.1 12.0 57 >55.9 Left Ulnar Anti Sensory (5th Digit) Wrist 5.2 12.8 >3.69 Wrist 5th Digit 4.1 16.0 39 >45.9 Right Ulnar Anti Sensory (5th Digit) Wrist 4.9 11.9 >3.69 Wrist 5th Digit 4.1 16.0 39 >45.9 Ortho Sensory Summary Table Site NR Onset (ms) Peak (ms) Norm Peak (ms) P-T* Amp ( V) Norm P-T Amp Site1 Site2 Delta-0 (ms) Dist (cm) Sourav (m/s) Norm Sourav (m/s) Left Ulnar Ortho Ortho Sensory (Wrist) Dig V 2.0 2.5 14.1 Dig V Wrist 2.0 8.0 40 Right Ulnar Ortho Ortho Sensory (Wrist) Dig V 2.1 2.6 22.6 Dig V Wrist 2.1 8.0 38 Motor Summary Table Site NR Onset (ms) Norm Onset (ms) O-P* Amp (mV) Norm O-P Amp Neg Dur (ms) Site1 Site2 Delta-0 (ms) Dist (cm) Sourav (m/s) Norm Sourav (m/s) Left Median Motor (APB) Wrist 8.4 <4.01 5.1 >4.99 7.50 Wrist APB 8.4 8.0 10 Elbow 13.4 4.8 >4.99 7.50 Elbow Wrist 5.0 19.0 38 >49.9 Right Median Motor (APB) Wrist 5.5 <4.01 5.1 >4.99 6.41 Wrist APB 5.5 8.0 15 Elbow 9.8 4.4 >4.99 6.72 Elbow Wrist 4.3 18.0 42 >49.9 Left Ulnar Motor (ADM) dispersed Wrist 3.9 <3.61 5.9 >4.99 6.09 Wrist ADM 3.9 8.0 21 B Elbow 7.2 5.8 >4.99 6.41 B Elbow Wrist 3.3 18.0 55 >46.9 A Elbow 8.4 5.9 >4.99 6.41 A Elbow B Elbow 1.2 8.0 67 >42.9 A Elbow Wrist 4.5 26.0 58 Right Ulnar Motor (ADM) Wrist 3.6 <3.61 6.7 >4.99 6.25 Wrist ADM 3.6 8.0 22 B Elbow 7.2 5.3 >4.99 6.56 B Elbow Wrist 3.6 17.0 47 >46.9 A Elbow 8.3 5.8 >4.99 6.88 A Elbow B Elbow 1.1 8.0 73 >42.9 A Elbow Wrist 4.7 25.0 53 Ortho Mixed Summary Table Site NR Onset (ms) Peak (ms) Norm Onset (ms) P-T Amp ( V) Norm P-T Amp Site1 Site2 Delta-0 (ms) Dist (cm) Souarv (m/s) Norm Sourav (m/s) Left Median Palmar Ortho Mixed (Wrist) Palm NR <1.81 >0.0 Palm Wrist 8.0 >43.9 Right Median Palmar Ortho Mixed (Wrist) Palm 2.2 2.9 <1.81 39.5 >0.0 Palm Wrist 2.2 8.0 36 >43.9 F Wave Studies NR F-Lat (ms) Lat Norm (ms) L-R F-Lat (ms) Left Median F-Wave (Abd Poll Brev) 38.35 <29.71 6.14 Right Median F-Wave (Abd Poll Brev) 32.21 <29.71 6.14 Left Ulnar F-Wave (Abd Dig Min) 30.67 <30.31 0.00 Right Ulnar F-Wave (Abd Dig Min) 30.67 <30.31 0.00 EMG Side Muscle Nerve Root Ins Act Fib/ Pos Fasc Other Atrophy Amp Dur Poly Recr Pat Int Pat Comment Right Abd Poll Brev Median C8-T1 0 0 0 0 2+ 1- 2+ 0 Decr 1- Right Pron Teres Median C6-7 0 0 0 0 0 N N 0 N N Right Interos Esau I Ulnar C8-T1 0 0 0 0 0 N N 0 N N Right Flex Carpi Uln Ulnar C8,T1 0 0 0 0 0 N N 0 N N Right Triceps Brach Radial C6-7-8 0 0 0 0 0 N N 0 N N Right Biceps Brach Musculocut C5-6 0 0 0 0 0 N N 0 N N Right Deltoid Axillary C5-6 0 0 0 0 0 N N 0 N N Right C8-T1 Parasp C8-T1 0 0 0 0 0 Right C6-C7 Parasp C6-C7 0 0 0 0 0 Right C4-C5 Parasp C4-C5 0 0 0 0 0 Left Abd Poll Brev Median C8-T1 0 0 0 0 3+ N 2+ Serr Decr 1- Left Pron Teres Median C6-7 0 0 0 0 0 N N 0 N N Left Interos Esau I Ulnar C8-T1 0 0 0 0 2+ N 1+ 0 N N Left Flex Carpi Uln Ulnar C8,T1 0 0 0 0 0 N N 0 N N Left Triceps Brach Radial C6-7-8 0 0 0 0 0 N N 0 N N Left Biceps Brach Musculocut C5-6 0 0 0 0 0 N N 0 N N Left Deltoid Axillary C5-6 0 0 0 0 0 N N 0 N N Left C8-T1 Parasp C8-T1 0 0 0 0 0 Left C6-C7 Parasp C6-C7 0 0 0 0 0 Left C4-C5 Parasp C4-C5 0 0 0 0 0 Abbreviations: Atrop=atrophy; CRD=complex repetitive discharge; Discr=discrete; Doub=doublet; Fasc=fasciculation; FFE=full for effort; Fib=fibrillation; Myokym=myokymia; Winterset=myotonic potential; N,0=normal; NR=no response; Polyph=polyphasia; Pos=positive [sharp] wave; RFU=rapidly firing units; Serr=serrated potential (2<phases<5); W&W=waxing and waning pattern INTERPRETATION: This study reveals ENMG evidence of chronic, neuropathic, axonal, sensorimotor processes affecting the median nerves at the wrists bilaterally, consistent with the clinical diagnosis of carpal tunnel syndrome. These are of severe degree on the L and moderate degree on the R by electrical criteria. A similar lesion affects the L ulnar nerve at the wrist (Guyon's canal), of mild degree. Nightly splint use was reinforced to the patient for prophylaxis. Should surgery be contemplated, a follow-up study 6 months afterward, limited to the median nerves, would be beneficial in establishing a new baseline. There is no suggestion by this study of more proximal lesions e.g. radiculopathy, nor of more widespread processes e.g. peripheral neuropathy or mononeuritis multiplex. A previous ENMG study is no longer available for comparison. Shala Farrell M.D. Diplomate, [place] [employer]iat[employer] and Neurology (neurology, epilepsy, sleep medicine) Diplomate, [place] Board of Clinical Neurophysiology Diplomate, [place] Board of Preventive Medicine (clinical informatics) . documented in this encounter [facility] 08-20-2024 Telephone encounter Note LVM to RC in regard to BUE referral from Dr. Hernández--Approved to schedule--25.00 co-pay will be applied to toward OOP. [facility] 08-20-2024 Miscellaneous Notes LVM to RC in regard to BUE referral from Dr. Hernández--Approved to schedule--25.00 co-pay will be applied to toward OOP. documented in this encounter [facility] 05-01-2024 Note Echocardiology Procedure Exam Date/Time Accession # Ordering Echo Transthoracic 05/01/2024 15:00 EDT [id number] Kashif Barnett MD Complete CPT code 07711 [id number] Reason for Exam (Echo Transthoracic Complete) AFIB, Syncope R55;Other (please specify) Report Version: 1 Study ID: [id number] Adult Echocardiogram Report Name: DARIEL ZABALA Study Date: 05/01/2024, 2: 02 PM Patient [place] [facility] [place] 1940 (MM/DD/YYYY) Gender: Male Age: 84 [...] Valve TR max P.1 mmHg TR max sourva: 274.5 cm/sec Aorta Ao root diam: 3.3 [...] Signature): 05/01/2024 3:22 pm Signed by: Jason Vaguhn MD Transcribed by: [facility] Technologist: [facility] 03-26-2024 Hospital Discharge instructions Patient Education 03/26/2024 14:02:11 Post Op [...] condition: Doing activities 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 Having rheumatoid arthritis, gout, or diabetes. Being [...] splint on your hand. General instructions Take sucn-rqp-iqixcik and prescription medicines only as told by [...] provider. Document Revised: 03/17/2020 Document Reviewed: 03/17/2020 Beautified Patient Education 2022 [employer]. Follow Up Care 03/01/2024 15:40:29 With:GORDO Weller Address: [address] [place], [place] [id number] Business (1) When:04/04/2024 10:15:00 Comments:Keep scheduled appointment [facility] 03-20-2024 Note [id number] [facility] 11-18-2023 Evaluation note Encounter Date Diagnosis Assessment [...] sodium level at upcoming appt in January [facility] 12-20-2023 Evaluation note* Encounter Date Diagnosis [...] further dizziness symptoms would recommend f/u with screen printing supervisor as well. [facility] 11-17-2023 Evaluation note* Encounter Date Diagnosis Assessment Notes Treatment Notes Treatment Clinical Notes Sep, Type 2 diabetes mellitus (ICD-10 - E11.9) [facility] 11-17-2023 Miscellaneous Notes* Telephone Encounter - Venessa Riggins RN - 09/30/2023 12:29 PM EST Called patient back and reviewed plan from his call with Nurse Photo Colorer at 11:36 AM. See my note Patient [...] have any questions, you can call Nurse sponge diver back. * Telephone Encounter - Venessa Riggins RN - 09/30/2023 11:36 AM EST Patient calling with request for physician referral: Patient referred to nephrology and primary care Department. Patient denies any new or worsening symptoms of which a provider is not aware: Yes. Patient was discharged from [facility] on 08/26 for low sodium and said he was referred to [facility]. He has non [facility] nephrology appt [...] have any questions, you can call Nurse sponge diver back. [facility]* Encounter Date Diagnosis Assessment Notes Treatment Notes Treatment Clinical Notes Sep, Hyponatremia (ICD-10 - E87.1) Recent sodium 136 at low end of normal, given significance of symptoms and recommendation of hospital for f/u will refer to nephrology patient requesting [facility] Sep, Anticoagulant long-term use (ICD-10 - Z79.01) Follows with INR clinic through [facility]. Sep, Atrial fibrillation (ICD-10 - I48.91) Appears in NSR today, anticoagulated on Warfarin Sep, Hypothyroidism (ICD-10 - E03.9) Recent TFTs in normal range, clinically euthyroid, continue current dose of LT4 Sep, Type 2 diabetes mellitus (ICD-10 - E11.9) Recent a1c in good range at 5.6%, continue current dose of glimepiride. Sep, Immunization due (ICD-10 - Z23) [facility] 10-16-2023 Evaluation note* Encounter Date Diagnosis Assessment Notes Treatment Notes Treatment Clinical Notes Aug, Hyponatremia (ICD-10 - E87.1) [facility] 08-03-2023 Evaluation note* Encounter Date Diagnosis Assessment Notes Treatment Notes Treatment Clinical Notes Jun, Atrial fibrillation (ICD-10 - I48.91) Rate controlled, mild bradycardia but asymptomatic. Will continue current dose of atenolol. He is anticoagulated on Coumadin with goal INR 2-3, he is due for INR check. Will refer to coumadin clinic through [facility] Jun, Anticoagulant long-term use (ICD-10 - Z79.01) Jun, Hearing loss (ICD-10 - H91.90) Referral to local rail detector car operator Jun, Dermatitis (ICD-10 - L30.9) Can trial topical steroid PRN, discussed may be secondary to dry skin. Recommend daily use of lotion Jun, Hypothyroidism (ICD-10 - E03.9) Due for TFTs prior to next visit Jun, Type 2 diabetes mellitus (ICD-10 - E11.9) Due for a1c prior to next visit Jun, BPH (benign prostatic hyperplasia) (ICD-10 - N40.0) [facility] 08-03-2023 Reason for referral (narrative)* Reason Medication managemen t through [facility] - Coumadin management with INR goal 2-3 Diagnosis 1 Anticoagulant long-t erm use (Z79.01) Referral Organization [facility] Family Rodo John Referring Provider First Name Jada Referring Provider Last Name [facility] Referring Provider Specialty [facility] Referred Organization [facility] Referred Address [address] [facility],[place], [place],[address] Referred Provider Specialty Milvia felix Referral Priority Routine General Notes Gabrielle Reid 01/2023 01:34:29 PM >this is an order not a referral, clinical informed and will fax order over for standing order INR to [facility] Reason * FU 06/29 CALL he aring loss, issue with hearing aids Diagnosis 1 Hearing loss (H91.90 ) Referral Organization [facility] Rodo John Referring Provider First Name Jada Referring Provider Last Name Edgard Referring Provider Specialty [facility] [employer] Referred Organization [facility] Referred Address ,[place], [place],[address] Referred Provider Specialty Audiologists Referral Priority Routine General Notes Gabrielle Reid 01/2023 01:28:34 PM >referral received and faxed [facility] 04-27-2010 History of Past illness Narrative* Problem Noted Date Diagnosed Date Resolved Date Myalgia 03/10/2010 03/01/2011 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 and other lower urinary tract symptoms (LUTS) 08/11/2006 01/11/2013 Elevated prostate specific antigen (PSA) 03/07/2012 documented as of this encounter (statuses as of 09/30/2023) [facility] No data available for this section [facility] Future Appointments Appointment Date:03/08/2024 01:00:00 PM Scheduled Provider:Kylah Medina MD Location:[facility] Appointment Type: Open Appointment Date:03/26/2024 01:45:00 PM Scheduled Provider: Location:[facility] Appointment Type:Surgery FT Appointment Date:05/01/2024 09:00:00 AM Scheduled [facility] Lab Draw Appointment Date:05/03/2024 08:00:00 AM Scheduled Provider: Location:[facility] Appointment Type: Medicare Wellness Subsequent Appointment Date:05/03/2024 09:00:00 AM Scheduled Provider:Kylah Medina MD Location:[facility] Appointment Type: Open Future Scheduled Tests Laboratory* PSA Screen, Total 02/02/24 * CBC w/ Auto Diff 02/02/24 * Comprehensive Metabolic Panel 02/02/24 * Lipid Panel 02/02/24 [facility] Future Appointments Appointment Date:05/01/2024 09:00:00 AM Scheduled Provider: Location:[facility] Appointment Type:FM Lab Draw Appointment Date:05/03/2024 08:00:00 AM Scheduled Provider: Location:[facility] Appointment Type: Medicare Wellness Subsequent Appointment Date:05/03/2024 09:00:00 AM Scheduled Provider:Kylah Medina MD Location:[facility] Appointment Type: Open Future Scheduled Tests Laboratory* PSA Screen, Total 02/02/24 * CBC w/ Auto Diff 02/02/24 * Comprehensive Metabolic Panel 02/02/24 * Lipid Panel 02/02/24 [facility] Future Appointments Appointment Date:05/01/2024 09:00:00 AM Scheduled Provider: Location:[facility] Appointment Type: Lab Draw Appointment Date:05/03/2024 08:00:00 AM Scheduled Provider: Location:[facility] Appointment Type: Medicare Wellness Subsequent Appointment Date:05/03/2024 09:00:00 AM Scheduled Provider:Kylah Medina MD Location:[facility] Appointment Type: Open Appointment Date:05/25/2024 01:00:00 PM Scheduled Provider:Kashif Barnett MD [facility] [place] App[facility] Type:Cardiology Follow Up ([place]) Future Scheduled Tests Laboratory* PSA Screen, Total 02/02/24 * CBC w/ Auto Diff 02/02/24 * Comprehensive Metabolic Panel 02/02/24 * Lipid Panel 02/02/24 Radiology* Echo Transthoracic Complete 04[facility]20/24 [facility] Future Appointments Appointment Date:05/03/2024 08:00:00 AM Scheduled Provider: Location:[facility] Appointment Type: Medicare Wellness Subsequent Appointment Date:05/03/2024 09:00:00 AM Scheduled Provider:Kylah Medina MD Location:[facility] Appointment Type: Open Appointment Date:05/21/2024 10:00:00 AM Scheduled Provider: [facility] Type:CV Holter/Event (FT) Appointment Date:05/25/2024 01:00:00 PM Scheduled Provider:Kashif Barnett MD [facility] [place] [facility] Type:Cardiology Follow Up ([place]) [facility] Future Appointments Appointment Date:05/30/2024 03:45:00 PM Scheduled Provider:Kashif Barnett MD [facility] Type:Cardiology Follow Up (FT) Appointment Date:11/01/2024 09:15:00 AM Scheduled Provider:Kylah Medina MD Location:[facility] Appointment Type: Open Appointment Date:05/02/2025 08:00:00 AM Scheduled Provider: Location:[facility] Appointment Type:FM Medicare Wellness [facility] Future Appointments Appointment Date:08/31/2024 01:00:00 PM Scheduled Provider:Kashif Barnett MD [facility] [place] Appointment Type:Cardiology Follow Up (FT) Appointment Date:11/01/2024 09:15:00 AM Scheduled Provider:Kylah Medina MD Location:[facility] Appointment Type: Open Appointment Date:05/02/2025 08:00:00 AM Scheduled Provider: Location:[facility] Appointment Type:FM Medicare Wellness [facility] Future Appointments Appointment Date:11/01/2024 09:15:00 AM Scheduled Provider:Kylah Medina MD Location:[facility] Appointment Type: Open Appointment Date:12/11/2024 01:00:00 PM Scheduled Provider:Dixon Dubose PA-C [facility] Type:Cardiology Follow Up (FT) Appointment Date:05/02/2025 08:00:00 AM Scheduled Provider: Location:[facility] Appointment Type: Medicare Wellness [facility] Evaluation + Plan note Future Appointments Appointment Date:11/01/2024 09:15:00 AM Scheduled Provider:Kylah Medina MD [facility] [facility] Appointment Type:FM Open Appointment Date:11/19/2024 02:15:00 PM Scheduled Provider: Location:[facility] Appointment Type:Surgery FT Appointment Date:12/12/2024 10:15:00 AM Scheduled Provider:Dixon Dubose PA-C [facility] Type:Cardiology Follow Up (FT) Appointment Date:05/02/2025 08:00:00 AM Scheduled Provider: Location:[facility] Appointment Type: Medicare Wellness Subsequent [facility] evaluation + Plan note Future Appointments Appointment Date:11/19/2024 02:15:00 PM Scheduled Provider: Location:[facility] Appointment Type:Surgery FT Appointment Date:12/12/2024 10:15:00 AM Scheduled Provider:Dixon Dubose PA-C [facility] Type:Cardiology Follow Up (FT) Appointment Date:05/02/2025 08:00:00 AM Scheduled Provider: Location:[facility] Appointment Type: Medicare Wellness [facility] Evaluation noteNo InformationNortRomotive Other Evaluation note* Diagnosis Pain in both upper extremities- Primary Carpal tunnel syndrome, bilateral Carpal tunnel syndrome documented in this encounter [facility] Diagnosis Pre-op testing- Primary Unspecified pre-operative examination Right hand pain Pain in soft tissues of limb Arm weakness Other musculoskeletal symptoms referable to limbs documented in this encounter [facility] general Narrative - Reported* Type Description Date Medical History type 2 diabetes Medical History hypothyroid Medical History Afib Surgical History multiple neck sx Surgical History tonsillectomy Surgical History adenoidectomy Surgical History MAU cataract Hospitalization History see above [facility] Other History general Narrative - Reported* Type Description Date Medical History type 2 diabetes Medical History hypothyroid Medical History Afib Surgical History multiple neck sx Surgical History tonsillectomy Surgical History adenoidectomy Surgical History MAU cataract Hospitalization History see above Hospitalization History low [facility]2023 [facility] Other History general Narrative - Reported* Type [...] 2 DM, generalized weakness hypomagnesiema, RADHA 11/13/23-11/15/23 [facility] Hospital Discharge instructions No data available for this section [facility] No data available for this section [facility] Summary Purpose Family History No Family [...] hospitalization for symptomatic hyponatremia, [facility] [place] [address] [place] ph [phone], fax [phone] Diagnosis 1 Hyponatremia (E87.1) Referral Organization [facility] Referring Provider First Name Jada Referring Provider Last Name Edgard Referring Provider Specialty Family Medi cine Referred Organization [facility] Referred Provider Romeo Lara Ref[address] Address [address], [place],[address] Referred Provider Specialty Internal Med icine Referral Priority Routine General Notes Gabrielle Reid Krishan 06/2023 01:35:25 PM > referral received and faxed Clinical Notes [facility] [place] [address] [place] ph [phone], fax [phone] Reason hyponatremia, recent hospitalization [facility] for hyponatremia Diagnosis 1 Hyponatremia (E87.1) Referral Organization [facility] [place] Referring Provider First Name Jada Referring Provider Last Name [facility] Referring Provider Specialty Family [facility] [employer] Referred Organization [facility] Referred Address [address] [place], [place],[address] Referred Provider Specialty Nephrology Referral Priority Routine [...] section and content) DATE CREATED AUTHOR 06/03/2020 [facility] DATE CREATED AUTHOR AUTHOR'S ORGANIZ ATION 11/10/2023 [facility] DATE CREATED AUTHOR AUTHOR'S ORGANIZ ATION 05/03/2024 [facility] DATE CREATED AUTHOR AUTHOR'S ORGANIZ ATION 07/01/2024 [facility] DATE CREATED AUTHOR AUTHOR'S ORGANIZ ATION 08/17/2024 [facility] DATE CREATED AUTHOR AUTHOR'S ORGANIZ ATION 10/06/2024 [facility] DATE CREATED AUTHOR AUTHOR'S ORGANIZ ATION 11/02/2024 [facility] DATE CREATED AUTHOR AUTHOR'S ORGANIZ ATION 11/13/2024 [facility] DATE CREATED AUTHOR AUTHOR'S ORGANIZ ATION 11/14/2024 [facility] REASON FOR VISIT (unrecogniz ed section and content) Reason Comments Refill Request Reason Comments Follow-up Source Comments (unrecognize d section and content) In the event this informatio n is protected by the Federal Confidentiality of Alcohol and Drug Abuse Patient Records regulations: The Federal rules restrict any use of the information to criminally investigate or prosecute any alcohol or drug abuse patient.[facility] Patient Care team informatio n (unrecognized section and content) Nnps Relationship Specialty Start Date End Date Kylah Medina MD PCP - General Family Medicine 02/03/24 Nnps Relationship Specialty Start Date End Date Kylah Medina MD PCP - General Family Medicine 02/03/24 Nnps Relationship Specialty Start Date End Date Kylah Medina MD PCP - General Family Medicine 02/03/24 Nnps Relationship Specialty Start Date End Date Kylah Medina MD PCP - General Family Medicine 02/03/24 Nnps Relationship Specialty Start Date End Date Kylah Medina MD PCP - General Family Medicine 02/03/24 [...] BE BASED ON THE PRIMARY CLINICAL RECORDS. [employer] [facility]. provides no warranty or guarantee of the accuracy or completeness of information in this document.
--- NOTE | 2024-11-22 18:39 | ED_ITS ---
HPI HPI - General Adult General Chief complaint: Extremity Problem, Nontraumatic Stated complaint: Right hand numb, no control Time Seen by Provider: 11/22/24 18:30 Source: patient Mode of arrival: walk-in History of Present Illness HPI narrative: Patient is an 84-year-old male who presents to the emergency department for numbness and swelling in the right hand. Patient states he had carpal tunnel surgery on his left hand earlier this week at [facility]. He states that he was diagnosed with carpal tunnel on the right side as well and is due to have surgery. He states earlier today he had numbness and tingling in the right thumb, index finger and middle finger with weakness of the fingers and wrist. He states the hand was swollen but not purple. He states those symptoms resolved and at this time he has minimal tingling to the right thumb, index finger and middle finger. He has not had any headaches, neck pain, visual changes, shoulder pain. He has no peripheral paresthesias to the right arm. He has not had any difficulty raising his right arm. Related Data Home Medications ?Medication ?Instructions ?Recorded ?Confirmed glimepiride 2 mg tablet 2 mg PO DAILY 08/21/23 03/10/24 levothyroxine 25 mcg tablet 25 mcg PO QAM 08/21/23 03/10/24 pravastatin 40 mg tablet 40 mg PO DAILY 08/21/23 03/10/24 sildenafil 100 mg tablet 100 mg PO DAILY PRN sexual activity 08/21/23 03/10/24 tamsulosin 0.4 mg capsule 0.4 mg PO DAILY 08/21/23 03/10/24 warfarin 5 mg tablet (Jantoven) 5 mg PO MOWEFR 08/21/23 03/10/24 warfarin 2.5 mg tablet (Jantoven) 2.5 mg PO .4 days a week 08/22/23 03/10/24 finasteride 5 mg tablet 5 mg PO .qd 11/13/23 03/10/24 TUMERIC 08/13/24 coenzyme Q10 100 mg capsule (Co 100 mg PO DAILY 08/13/24 08/13/24 Q-10) cyclobenzaprine 10 mg tablet 10 mg PO TID PRN muscle spasm 08/13/24 08/13/24 gabapentin 300 mg capsule mg 08/13/24 vitamin B complex (B-Complex 1 tab PO DAILY 08/13/24 08/13/24 tablet) Previous Rx's ?Medication ?Instructions ?Recorded atenolol 25 mg tablet 25 mg PO BID #60 tabs 11/15/23 sodium chloride 1,000 mg soluble 1,000 mg PO TID #90 tabs 11/15/23 tablet Allergies Allergy/AdvReac Type Severity Reaction Status Date / Time No Known Drug Allergies Allergy Verified 08/21/23 15:00 Opioid HPI Opioid Management Most Recent Opioid Data: Last Pain Scale 5 11/22/24 18:32 11/22/24 Ur Phencyclidine Scrn Negative (NEGATIVE) 08/21/23 03:22 10/07/06 Review of Systems ROS Constitutional Denies: fever or chills Ears, nose, mouth, and throat Denies: throat pain Cardiovascular Denies: chest pain Respiratory Denies: shortness of breath Gastrointestinal Denies: nausea or vomiting Musculoskeletal Reports: extremity pain and extremity swelling; Denies: back pain or neck pain Integumentary/Breast Denies: rash Neurological Reports: numbness in extremities and weakness in extremities; Denies: headache, dizziness or vertigo Hematologic/Lymphatic Denies: easy bruising or easy bleeding PFSH [facility] Medical History (Updated 11/22/24 @ 20:01 by ANDERSON Kunz) Hyponatremia ?E87.1 - Hypo-osmolality and hyponatremia (ICD-10) Hypomagnesemia ?E83.42 - Hypomagnesemia (ICD-10) RADHA (acute kidney injury) ?N17.9 - Acute kidney failure, unspecified (ICD-10) Paroxysmal atrial fibrillation ?I48.0 - Paroxysmal atrial fibrillation (ICD-10) Type 2 diabetes mellitus with hyperglycemia ?E11.65 - Type 2 diabetes mellitus with hyperglycemia (ICD-10) Influenza ?J11.1 - Influenza due to unidentified influenza virus with other respiratory manifestations (ICD-10) Hypomagnesemia ?E83.42 - Hypomagnesemia (ICD-10) Acute hyponatremia ?E87.1 - Hypo-osmolality and hyponatremia (ICD-10) Acute confusion ?R41.0 - Disorientation, unspecified (ICD-10) Diabetes ?E11.9 - Type 2 diabetes mellitus without complications (ICD-10) High cholesterol ?E78.00 - Pure hypercholesterolemia, unspecified (ICD-10) Atrial fibrillation ?I48.91 - Unspecified atrial fibrillation (ICD-10) Family History Father Family history of myocardial infarction Family history of hypertension Mother Family history of cancer Family history of diabetes mellitus Social History Within the past year, how often did you have a drink containing alcohol: 2-4 times a month Smoking status: Never smoker Highest level of school completed/degree received: high school graduate Little interest or pleasure in doing things: not at all Feeling down, depressed, or hopeless: not at all Gender Identity: male Exam Narrative Exam Narrative: Gen.: Awake, alert, in no distress Head: Normocephalic, atraumatic ENT: Moist mucous membranes, C-spine nontender Respiratory: No respiratory distress Cardio: Regular rate and rhythm Extremities: Moves extremities equally, 2+ right radial pulse. Normal banana grader strength in the right hand, no deficit in movement to the fingers of the right hand. Psych: Normal mood and affect Neuro: No focal neuro deficit; NIH stroke scale of 0 Skin: Warm, dry, intact Constitutional Vital Signs, click to edit/add: Last Vital Signs Temp 98.5 F 11/22/24 18:20 Pulse 74 11/22/24 19:11 Resp 18 11/22/24 19:11 BP 174/88 H 11/22/24 19:31 Pulse Ox 99 11/22/24 19:50 O2 Del Method Room Air 11/22/24 18:20 Course Vital Signs Vital signs: Vital Signs Temperature 98.5 F 11/22/24 18:20 Pulse Rate 65 11/22/24 18:20 Respiratory Rate 16 11/22/24 18:20 Blood Pressure 185/80 H 11/22/24 18:20 Pulse Oximetry 98 11/22/24 18:20 Oxygen Delivery Method Room Air 11/22/24 18:20 Temperature 98.5 F 11/22/24 18:20 Pulse Rate 74 11/22/24 19:11 Respiratory Rate 18 11/22/24 19:11 Blood Pressure 174/88 H 11/22/24 19:31 Pulse Oximetry 99 11/22/24 19:50 Oxygen Delivery Method Room Air 11/22/24 18:20 Medical Decision Making MDM Narrative Medical decision making narrative: Due to the patient's age and complaint of paresthesia, he was sent for CT of the brain which is unremarkable, labs are also unremarkable. Patient with no complaints of pain, no other focal medical complaints in the emergency department. He has been previously diagnosed with carpal tunnel syndrome of the right hand. He is reevaluated by attending physician prior to discharge, he is very eager for discharge. He was placed in a cock up splint and remains neurovascularly intact. Rest, ice, elevate. Follow-up with primary care and return to the emergency department if symptoms change or worsen. Patient has an orthopedist that he is established with already. SHARED APC VISIT, PHYSICIAN ATTESTATION: [id number] I performed a substantive part of the MDM during the patient?s E/M visit. I personally evaluated and examined the patient. I personally made or approved the documented management plan and acknowledge its risk of complications. Medical Records Medical records reviewed: Yes I reviewed the patient's medical records Lab Data Lab results reviewed: Yes I reviewed the patient's lab results Labs: Lab Results 11/22/24 Range/Units 19:19 WBC 5.6 (4.0-11.0) 10^3/uL RBC 3.79 L (4.70-6.10) 10^6/uL Hgb 11.9 L (14.0-18.0) g/dL Hct 34.6 L (42.0-54.0) % MCV 91.3 (80.0-94.0) fL MCH 31.4 (25.9-34.0) pg MCHC 34.4 (29.9-35.2) g/dL RDW 13.3 (11.0-15.0) % Plt Count 189 (150-450) 10^3/uL MPV 10.0 (9.5-13.5) fL Neut % (Auto) 57.1 (43.0-75.0) % Lymph % (Auto) 30.1 (20.5-60.0) % Coles % (Auto) 9.6 (1.7-12.0) % Eos % (Auto) 2.1 (0.9-7.0) % Baso % (Auto) 0.9 (0.2-2.0) % Neut # (Auto) 3.2 (1.4-6.5) 10^3/uL Lymph # (Auto) 1.7 (1.2-3.8) 10^3/uL Coles # (Auto) 0.5 (0.3-0.8) 10^3/uL Eos # (Auto) 0.1 (0.0-0.7) 10^3/uL Baso # (Auto) 0.1 (0.0-0.1) 10^3/uL Abs Immat Gran (auto) 0.01 (0.00-0.03) 10^3/uL Imm/Tot Granulo (auto) 0.2 (0.0-0.5) % PT 12.4 H (9.0-11.6) sec INR 1.19 Sodium 141 (136-145) mmol/L Potassium 3.9 (3.5-5.1) mmol/L Chloride 104 (98-107) mmol/L Carbon Dioxide 31.1 (21.0-32.0) mmol/L Anion Gap 9.8 BUN 9.0 (7.0-18.0) mg/dL Creatinine 1.11 (0.70-1.30) mg/dL Est GFR ( Amer) >60 (>=60 mL/min/1.73m^2) Est GFR (Non-Af Amer) >60 (>=60 mL/min/1.73m^2) BUN/Creatinine Ratio 8.1 Glucose 97 (74-106) mg/dL Calcium 9.1 (8.5-10.1) mg/dL Imaging Data CT scan - head: Attestation: I have reviewed the pertinent imaging results. Radiologist's impression: ITS Impressions Brain CT 11/22/24 18:54 IMPRESSION: No CT evidence of an acute intracranial hemorrhage or acute ischemic event. Electronically authenticated by: JOSE SRIVASTAVA Date: 11/22/2024 19:06 Discharge Plan Discharge Chief Complaint: Extremity Problem, Nontraumatic Clinical Impression: Paresthesias in right hand Patient Disposition: Home, Self-Care Time of Disposition Decision: 20:01 Condition: Good Prescriptions / Home Meds: No Action glimepiride 2 mg tablet 2 mg PO DAILY levothyroxine 25 mcg tablet 25 mcg PO QAM pravastatin 40 mg tablet 40 mg PO DAILY sildenafil 100 mg tablet 100 mg PO DAILY PRN (Reason: sexual activity) tamsulosin 0.4 mg capsule 0.4 mg PO DAILY warfarin [Jantoven] 5 mg tablet 5 mg PO Rx Instructions: takes on tuesday, and tue per [facility] warfarin [Jantoven] 2.5 mg tablet 2.5 mg PO .4 days a week Rx Instructions: Takes on Tuesday, , and tue per [facility]madin clinic finasteride 5 mg tablet 5 mg PO .qd sodium chloride 1,000 mg Tablet,Soluble 1,000 mg PO TID Qty: 90 0RF atenolol 25 mg Tablet 25 mg PO BID Qty: 60 0RF gabapentin 300 mg capsule coenzyme Q10 [Co Q-10] 100 mg capsule 100 mg PO DAILY vitamin B complex [B-Complex] Tablet 1 tab PO DAILY TUMERIC cyclobenzaprine 10 mg tablet 10 mg PO TID PRN (Reason: muscle spasm) Print Language: [place] Instructions: Paresthesia (ED) Referrals: KYLAH GARCIA [Primary Care Provider] - 1 week
--- NOTE | 2024-11-22 18:54 | CT_ITS ---
The [address] [address] Patient Name: [place] ZABALA MRN: [id number] date: 1940 Sex: M Assigned Patient Location: ER Current Patient Location: ER Accession/Order Number: [id number] Exam Date: 11/22/2024 18:50 Report Date: 11/22/2024 19:06 At the request of: ANDREWS QUIROGA Procedure: CT stroke head/brain wo con EXAM: CT stroke head/brain wo con HISTORY: right hand pain COMPARISON: CT head from 11/13/2023. TECHNIQUE: Multiple axial images of the brain were obtained from the skull base to the vertex without contrast enhancement. Sagittal and coronal reformations were provided. FINDINGS: No acute intracranial hemorrhage, extra-axial fluid collection, midline shift or mass effect is seen. No space-occupying lesion is demonstrated. Sulcal and ventricular prominence is compatible with intracranial volume loss. No CT evidence of an acute ischemic event. There are vascular calcifications along the course of the carotid siphon. Punctate areas of dystrophic calcification are also noted within the basal ganglia. Only a small amount of mucosal thickening is seen within the paranasal sinuses. The mastoids are well aerated. CT/CT stroke head/brain wo con IMPRESSION: No CT evidence of an acute intracranial hemorrhage or acute ischemic event. Electronically authenticated by: JOSE SRIVASTAVA Date: 11/22/2024 19:06
--- NOTE | 2024-11-22 19:29 | PC.NURSE ---
i did introduced myself to this patient and his and i informed them about blood draw for this patient and waiting on ct results to come back this patient voices no concerns and shows no signs of distress
[2024-11-22 19:30] LABS: Basophils Absolute Auto 0.1 10^3/uL (0.0-0.1); Basophils Percent Auto 0.9 % (0.2-2.0); Eosinophils Absolute Auto 0.1 10^3/uL (0.0-0.7); Eosinophils Percent Auto 2.1 % (0.9-7.0); Hematocrit 34.6 % (42.0-54.0); Hemoglobin 11.9 g/dL (14.0-18.0); Immature Granulocytes Abs Auto 0.01 10^3/uL (0.00-0.03); Immature Granulocytes Pct Auto 0.2 % (0.0-0.5); Lymphocytes Absolute Auto 1.7 10^3/uL (1.2-3.8); Lymphocytes Percent Auto 30.1 % (20.5-60.0); Mean Corpuscular HGB Conc 34.4 g/dL (29.9-35.2); Mean Corpuscular Hemoglobin 31.4 pg (25.9-34.0); Mean Corpuscular Volume 91.3 fL (80.0-94.0); Monocytes Absolute Auto 0.5 10^3/uL (0.3-0.8); Monocytes Percent Auto 9.6 % (1.7-12.0); Neutrophils Absolute Auto 3.2 10^3/uL (1.4-6.5); Neutrophils Percent Auto 57.1 % (43.0-75.0); Platelet Count 189 10^3/uL (150-450); Red Blood Count 3.79 10^6/uL (4.70-6.10); Red Cell Distribution Width 13.3 % (11.0-15.0); White Blood Count 5.6 10^3/uL (4.0-11.0)
[2024-11-22 19:39] LABS: Anion Gap 9.8; BUN Creatinine Ratio 8.1; Calcium 9.1 mg/dL (8.5-10.1); Carbon Dioxide 31.1 mmol/L (21.0-32.0); Chloride 104 mmol/L (98-107); Estimated GFR (African America >60 (>=60 mL/min/1.73m^2); Estimated GFR (Non-African Ame >60 (>=60 mL/min/1.73m^2); Glucose 97 mg/dL (74-106); Potassium 3.9 mmol/L (3.5-5.1); Sodium 141 mmol/L (136-145)
[2024-11-22 19:45] LABS: INR 1.19; Prothrombin Time 12.4 sec (9.0-11.6)
--- NOTE | 2024-11-22 20:11 | PC.NURSE ---
i placed a wrist splint to this patient's right wrist i gave this patient and his verbal and paper discharge orders, both said yes to understanding these. at time of discharge this patient nor his voices no concerns and this patient shows no signs of distress
== END 2024-11-22 20:13 | disposition home or self-care (01) ==
PROVIDERS: Physician Assistant; Emergency Provider Emergency Medicine; PCP Family Medicine
DX: R20.2 Paresthesia of skin (principal); Z98.890 Other specified postprocedural states
CPT/HCPCS: 36415; 70450; 80048; 85025; 85610; 99284

== ENCOUNTER 2024-11-23 17:42 | Emergency (ER) | payer OTHER, SELFPAY ==
[2024-11-23 17:47] VITALS: BP 192/98; PULSE 75; TEMP 36.4; O2SAT 98; BMI 25.8
--- OUTSIDE RECORDS SUMMARY | 2024-11-23 17:53 | XMS_ITS | CCD ---
Author Organization [facility] CliniSyal Care Team Providers Care Agency Service Coordinator Name Role Phone Jada Rene Unavailable Unavailable Primary Care Provider Unavailrogerio Rene Jada Endy Attending Unavailable Edgard Jada A Admitting Unavailable Edgard Jada Endy Primary Care Unavailable Edgard Jada Endy Attending Unavailable Edgard Jada Endy Admitting Unavailable Edgard Jada Endy Primary Care Unavailable Kylah Medina Primary [...] Attending Unavailable MD Kylah Medina Attending Unavailable Irene COHN, Nathaniel Longo Attending Unavailable Kylah Medina MD Primary Care Provider AXEL HERNÁNDEZ Referring Unavailable HERNÁNDEZ, AXEL T Attending Unavailable ROSS, KYLAH E Referring Unavailable HERNÁNDEZ, AXEL T Attending Unavailable HERNÁNDEZ, AXEL T Referring Unavailable HERNÁNDEZ, AXEL T Attending Unavailable HERNÁNDEZ, AXEL T Referring Unavailable BEJ, SHALA Craig Attending Unavailable HERNÁNDEZ, AXEL T Attending Unavailable HERNÁNDEZ, AXEL T Referring Unavailable Ross, Kylah E. Attending Unavailable Ross, Kylah E. Attending Unavailable Ross, Kylah E. Attending Unavailable Ross, Kylah E. Attending Unavailable Ross, Kylah E. Attending Unavailable Ross, Kylah E. Attending Unavailable RossKylah Attending Unavailable MouranyDavie Attending Unavailable RossKylah Referring Unavailable Mourantarah, Davie Cole Attending Unavailable NONE, XXXX Referring Unavailable Ericka, MD Kashif Craig Admitting Unavailable Ericka, MD Kashif Craig Attending Unavailable Ericka, MD Kashif Craig Admitting Unavailable Ericka, MD Kashif Craig Attending Unavailable Ericka, MD Kashif Craig Referring Unavailable Kylah Medina Attending Unavailable RossKylah EShanna Admitting Unavailable Hernández, Axel T Referring Unavailable Hernández, Axel T Admitting Unavailable Hernández, Axel T Attending Unavailable Hernández, Axel T Referring Unavailable Hernández, Axel T Attending Unavailable Hernández, Axel T Admitting Unavailable Adam, Kylah Cole Attending Unavailable Kylah Medina. Attending Unavailable RossKylah EShanna Attending Unavailable RossKylah EShanna Admitting Unavailable RossKylah Attending Unavailable Kylah Medina EShanna Admitting Unavailable Allergies Allergy Classification Reported Allergen(s) Allergy Type Date of Onset Reaction(s) Facility (3 sources) No Known Medication Allergies; Translations: [No Known Medication Allergies] Propensity to adverse reactions (disorder) [facility] Repository Medications Current Medications Medication Drug Class(es) Dates Sig (Normalized) Sig (Original) acetaminophen 325 mg / HYDROcodone bitartrate 5 mg oral tablet (8 sources) Opioid Agonist Start: 03-20-2024 take 1 tablet by mouth every four hours as needed for pain [place] 325 mg-5 mg oral tablet See Instructions, for pain, 10 tab(s), Refill(s) 0, 1 tab(s) Oral q4hr PRN Pain. Duration 7 days., [id number], 180.5, cm, 03/20/24 15:05:00 EDT, Height/Length Dosing, 82.5, kg, 03/20/24 15:05:00 EDT, Weight Dosing Start Date: 03/20/24 Status: Ordered HYDROcodone-acet aminophen ([place]) 5-325 MG tablet Active atenolol 25 mg oral tablet (20 sources) beta-Adrenergic Dimitris Start: 10-22-2024 atenol ol 25 mg Tab See Instructions, take 1/2 tab daily, # 90 tab(s), Refills(s) 1, Pharmacy: [facility], 178, cm, 09/10/24 13:01:00 EDT, Height/Length Dosing, 80.1, kg, 09/10/24 13:01:00 EDT, Weight Dosing Start Date: 10/22/24 Status: Ordered Start: 04-20-2024 atenolol 25 mg Tab See Instructions, take 1/2 tab daily, # 30 tab(s), Refills(s) 5, Pharmacy: [id number], 180, cm, 04/20/24 13:27:00 EDT, Height/Length Dosing, 82.2, kg, 04/20/24 13:27:00 EDT, Weight Dosing Start Date: 04/20/24 Status: Ordered Start: 10-06-2015 take 1 tablet by alyssa th once daily atenolol 25 mg Tab 25 mg = 1 tab(s), Oral, Daily, # 90 tab(s), Refills(s) 0, Pharmacy: [facility], 178.2, cm, 02/02/24 10:29:00 EDT, [...] capsule by mouth every twenty-four hours CoQ10 (12 sources) Start: 03-06-20 CoQ10 See Instructions, PRN Prophylaxis, Refills(s) 0 Start Date: 03/06/24 Status: Ordered Start: 03-06-2024 CoQ10 Refills( s) 0 Start Date: 03/06/24 Status: Ordered D3 (7 sources) Start: 05-03-2024 D3 See Instructions, Oral Daily- patient states he takes 500 once a day, Refills(s) 0 Start Date: 05/03/24 Status: Ordered diclofenac sodium 0.01 mg/mg topical gel (7 sources) Nonsteroidal Anti-inflammatory Drug diclofenac sodium (Voltaren) 1 % gel APPLY 1/2 inchTO THE AFFECTED AREA(S) BY TOPICAL ROUTE BID Active finasteride 5 mg oral tablet (20 sources) 5-alpha Reductase Inhibitor Start: 10-09-2014 take 1 tablet by mouth once daily finasteride 5 mg Tab 5 mg = 1 tab(s), Oral, Daily, # 90 tab(s), Refills(s) 1, Pharmacy: [facility]/pharmacy #[id number], 178.6, cm, 11/01/24 9:21:00 EST, Height/Length Dosing, 81.3, kg, 11/01/24 9:21:00 EST, Weight Dosing Start Date: 11/08/24 Status: Ordered Comment on above: Take 1 tablet by alyssa once daily. fluticasone propionate 0.05 mg/actuat metered dose nasal spray (11 sources) Corticosteroid Start: 08-31-2024 fluticasone Nasal 0.05 mg/inh [place] See Instructions, 48 mL, Refill(s) 1, USE 1 SPRAY IN EACH NOSTRIL TWICE A DAY, [id number], 178, cm, 08/28/24 14:50:00 EDT, Height/Length Dosing, 82.2, kg, 08/28/24 14:50:00 EDT, Weight Dosing Start Date: 08/31/24 Status: Ordered Start: 07-03-2024 take 1 spray(s) nasa l route twice daily Flonase 0.05 mg/inh [place] 1 spray(s), Nasal, BID, 16 gram, Refill(s) 0, each nostril, [facility] #[id number], 178, cm, 07/03/24 10:05:00 [...] # 90 cap(s), Refills(s) 1, Pharmacy: [facility], 178, cm, 07/03/24 10:05:00 EDT, Height/Length Dosing, 80.8, kg, 07/03/24 10:05:00 EDT, Weight Dosing Start Date: 07/03/24 Status: Ordered glimepiride 2 mg oral tablet (20 sources) Sulfonylurea Start: 10-14-2014 glimepiride 2 mg Tab See Instructions, TAKE 1 TABLET DAILY, # 3 tab(s), Refills(s) 0, Pharmacy: [facility], 178, cm, 08/07/24 10:59:00 EDT, Height/Length Dosing, 78.2, kg, 08/07/24 10:59:00 EDT, Weight Dosing Start Date: 08/20/24 Status: Ordered Comment on above: Take 1 tablet by [facility] once daily. hydroCHLOROthiazide 25 mg oral tablet (7 sources) Thiazide Diuretic take 1 tablet by mouth once daily hydroCHLOROthiazide (HYDRODiuril) 25 MG tablet Take 1 tablet by mouth Daily Active levothyroxine sodium 0.025 mg oral tablet (20 sources) l-Thyroxine Start: 08-20-2024 Synthroid 25 mcg(0.025 mg) Tab See Instructions, TAKE 1 TABLET DAILY ON AN EMPTY STOMACH, # 3 tab(s), Refills(s) 0, Pharmacy: [facility] #[id number], 178, cm, 08/07/24 10:59:00 EDT, Height/Length Dosing, 78.2, kg, 08/07/24 10:59:00 EDT, Weight Dosing Start Date: 08/20/24 Status: Ordered Start: 02-13-2024 take 1 tablet by alyssa th once daily levothyroxine 25 mcg (0.025 mg) Tab 25 mcg = 1 tab(s), Oral, Daily, on an empty stomach, # 90 tab(s), Refills(s) 1, Pharmacy: [facility], 178.2, cm, 02/02/24 10:29:00 EDT, [...] # 90 cap(s), Refills(s) 1, Pharmacy: [facility], 178, cm, 08/28/24 14:50:00 EDT, Height/Length Dosing, 82.2, kg, 08/28/24 14:50:00 EDT, Weight Dosing Start Date: 08/30/24 Status: Ordered pravastatin sodium 40 mg oral tablet (20 sources) HMG-CoA Reductase Inhibitor Start: 10-09-2014 take 1 tablet by mouth once daily pravastatin 40 mg Tab 40 mg = 1 tab(s), Oral, Daily, # 90 tab(s), Refills(s) 3, Pharmacy: [facility], 178, cm, 09/10/24 13:01:00 EDT, Height/Length [...] # 5 tab(s), Refills(s) 0, Pharmacy: [facility], 178, cm, 07/03/24 10:05:00 EDT, Height/Length Dosing, 80.8, kg, 07/03/24 10:05:00 EDT, Weight Dosing Start Date: 07/03/24 Status: Ordered Start: 02-02-2024 take 1 tablet by alyssa th once daily as needed sildenafil 100 mg Tab 100 mg = 1 tab(s), Oral, Daily, PRN for erectile dysfunction, 1 hour before sexual activity, # 5 tab(s), Refills(s) 0, Pharmacy: [facility], 178.2, cm, 02/02/24 10:29:00 EDT, Height/Length Dosing, 84.1, kg, 02/02/24 10:29:00 EDT, Weight Dosing Start Date: 02/02/24 Status: Ordered take 1 tablet by alyssa th once daily as needed sildenafil (Viagra) 50 MG tablet TAKE 1 TABLET BY MOUTH ONCE DAILY NEEDED FOR INTERCOURSE FOR 14 DAYS Active take 1 tablet by alyssa every twenty-four hours Sildenafil Citrate 100 MG 1 tablet as needed Orally Once a day Active Sodium Chloride (20 sources) Start: 06-27-2024 take 1 tablet by mouth once daily Sodium Chloride 1 g oral tablet See Instructions, 1 gram orally daily, # 90 tab(s), Refills(s) 0, [id number] 178, cm, 06/11/24 12:53:00 EDT, Height/Length Dosing, 82, kg, 06/11/24 12:56:00 EDT, Weight Dosing Start Date: 06/27/24 Status: Ordered Start: 05-03-2024 take 1 tablet by alyssa once daily Sodium Chloride 1 g oral tablet See Instructions, patient states Dr. Najera took this down to one tab once daily, Refills(s) 0 Start Date: 05/03/24 Status: Ordered Start: 04-05-2024 take 1 tablet by alyssa twice daily Sodium Chloride 1 g oral tablet See Instructions, TAKE 1 TABLET BY MOUTH TWICE DAY, # 90 tab(s), Refills(s) 2, [id number] 180.5, cm, 03/20/24 15:05:00 EDT, Height/Length Dosing, 82.5, kg, 03/20/24 15:05:00 EDT, Weight Dosing Start Date: 04/05/24 Status: Ordered Start: 12-29-2023 take 1 tablet by alyssa in the morning sodium chloride 1 g tablet Take 1 g by mouth in the morning and 1 g before bedtime. 12/29/2023 Active Start: 12-23-2023 take 1 tablet by alyssa twice daily Sodium Chloride 1 g oral tablet See Instructions, TAKE 1 TABLET BY MOUTH TWICE DAY, # 90 tab(s), Refills(s) 2, Pharmacy: [facility], 178.2, cm, 12/01/23 13:40:00 EST, Height/Length Dosing, 85.5, kg, 12/01/23 13:40:00 EST, Weight Dosing Start Date: 12/23/23 Status: Ordered take 1 tablet by alyssa three times daily Sodium Chloride 1000 MG 1 tablet Orally Three times a day Active Sodium Chloride 1000 mg oral tablet, soluble (1 source) Start: 11-13-2024 take 1 tablet by mouth once daily Sodium Chloride 1000 mg oral tablet, soluble See Instructions, 30 tab(s), Refill(s) 0, Take one tablet daily, [facility] #[id number], 178.6, cm, 11/01/24 9:21:00 EST, Height/Length Dosing, 81.3, kg, 11/01/24 9:21:00 EST, Weight Dosing Start Date: 11/13/24 Status: Ordered tamsulosin hydrochloride 0.4 mg oral capsule (20 sources) alpha-Adrenergic Dimitris Start: 10-14-2014 take 1 capsule by mouth once daily tamsulosin 0.4 mg Cap 0.4 mg = 1 cap(s), Oral, Daily, # 90 cap(s), Refills(s) 1, Pharmacy: [facility], 178, cm, 09/10/24 13:01:00 EDT, Height/Length Dosing, 80.1, kg, 09/10/24 13:01:00 EDT, Weight Dosing Start Date: 10/22/24 Status: Ordered Comment on above: Take 1 capsule by [facility] daily at bedtime. tiZANidine 4 mg oral tablet (5 sources) Central alpha-2 Adrenergic Agonist Start: 07-24-2024 take 1 tablet by mouth every eight hours tiZANidine 4 mg Tab 4 mg = 1 tab(s), Oral, q8hr, # 90 tab(s), Refills(s) 1, Pharmacy: [facility], 178, cm, 09/10/24 13:01:00 EDT, Height/Length Dosing, 80.1, kg, 09/10/24 13:01:00 EDT, Weight Dosing Start Date: 10/15/24 Status: Ordered triamcinolone acetonide 1 mg/ml topical cream (14 sources) Corticosteroid Start: 06-16-2023 Start: 06-16-2023 Triamcinolone Acetonide 0.1 % 1 application Externally BID for 14 days Jun, Active Turmeric Curcumin 500 MG (14 sources) Turmeric Curcumi n 500 MG as directed Orally Active turmeric extract 500 mg oral capsule (12 sources) Start: 03-06-2024 take 1 capsule by mouth once daily as needed Turmeric 500 mg oral capsule 500 mg = 1 cap(s), Oral, Daily, PRN Prophylaxis, Refills(s) 0 Start Date: 03/06/24 Status: Ordered ubidecarenone 200 mg oral capsule (14 sources) vitamin B12 (13 sources) Vitamin B12 Start: 03-06-2024 take 50 [...] Problem Date Documented Date Episodic/Chronic Abdominal hernia (5 sources) Inguinal hernia; Translations: [Unilateral inguinal hernia, without obstruction or gangrene, not specified as recurrent] Onset: 08-28-2024 Episodic Allergic reactions (1 source) Dermatitis, unspecified Episodic Cardiac dysrhythmias (20 sources) Atrial fibrillation; Translations: [Unspecified atrial fibrillation] Onset: 08-22-2014 Chronic Coronary atherosclerosis and other heart disease (1 source) Coronary atherosclerosis; Translations: [Atherosclerotic heart disease of [place] coronary artery without angina pectoris] Onset: 08-28-2024 Chronic Diabetes mellitus without complication (20 sources) Type 2 diabetes mellitus; Translations: [Type 2 diabetes mellitus without complications] Chronic Disorders of lipid metabolism (13 sources) Hyperlipidemia; Translations: [Hyperlipidemia, unspecified] 03-02-2006 Chronic E Codes: Fall (11 sources) Fall in home 03-20-2024 Fluid and electrolyte disorders (12 sources) Hypo-osmolality and hyponatremia; Translations: [Hyponatremia] Episodic [...] sources) Laceration of head 03-20-2024 Episodic Osteoarthritis (14 sources) Degenerative joint disease involving multiple joints; Translations: [Polyosteoarthritis, unspecified] Onset: 09-12-2012 09-12-2012 Chronic Other aftercare (14 sources) Long-term current use of anticoagulant; Translations: [FPC (current) use of anticoagulants] Episodic Other aftercare (3 sources) FPC (current) use of anticoagulants Episodic Other and unspecified benign neoplasm (11 sources) Melanocytic nevus of skin 03-08-2024 Episodic Other connective tissue disease (12 sources) Triggering of digit 02-02-2024 Episodic Other [...] Impotence 02-02-2024 Chronic Other male genital disorders (7 sources) Erectile dysfunction co-occurrent and due to arterial insufficiency 05-03-2024 Chronic Other nervous system disorders (13 sources) Carpal tunnel syndrome; Translations: [Carpal tunnel syndrome, unspecified upper limb] Onset: 08-23-2007 03-06-2008 Chronic Other nervous system disorders (1 source) Neuropathy; Translations: [Polyneuropathy, unspecified] Onset: 03-25-2010 03-25-2010 Chronic Other nervous system disorders (1 source) Bilateral carpal tunnel syndrome; Translations: [Carpal tunnel syndrome, bilateral upper limbs] 09-28-2024 Chronic Other nervous system disorders (1 source) Carpal tunnel syndrome of left wrist; Translations: [Carpal tunnel syndrome, left upper limb] Onset: 11-12-2024 Chronic Other nutritional; endocrine; and metabolic disorders (11 sources) Overweight in adulthood with body mass index of 25 or more but less than 30 03-08-2024 Episodic Other screening for suspected conditions (not mental disorders or infectious disease) (1 source) Encounter for screening for malignant neoplasm of prostate Episodic Otitis media and related conditions (4 sources) Serous otitis media 07-03-2024 Episodic Peripheral and visceral atherosclerosis (13 sources) Arteriosclerotic vascular disease 12-01-2023 Chronic Spondylosis; intervertebral disc disorders; other back problems (1 source) Intervertebral disc disorder of cervical region with myelopathy; Translations: [Cervical disc disorder with myelopathy, unspecified cervical region] Onset: 2011 11-09-2021 Chronic Spondylosis; intervertebral disc disorders; other back problems (4 sources) Spasm of back muscles 07-24-2024 Episodic Syncope (15 sources) Syncope and collapse; Translations: [Syncope] Onset: 04-20-2024 Episodic Thyroid disorders (20 sources) Hypothyroidism; Translations: [Hypothyroidism, unspecified] Chronic Unclassified (1 source) Encounter for screening for malignant neoplasm of prostate; Translations: [Encounter for screening for malignant neoplasm of prostate] Onset: 11-02-2023 Unclassified (1 source) 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 POC Subsection Sodium [Moles/Vol] [id number] mmol/L Invalid Interpretation Code [facility] POC Subsection Sodium [Moles/Vol] [id number] mmol/L Invalid Interpretation Code [facility] POC Subsection CHEMISTRYOrdered By: SYSTEM SYSTEM on 11-19-2024 Anion gap [Moles/Vol] 10 mmol/L Normal 6 - 16 mEq/L Remisol Chem Calcium [Mass/Vol] 9.2 mg/dL Normal 8.9 - 11.1 mg/dL Remisol Chem Chloride [Moles/Vol] 98 mmol/L Low 101 - 111 mmol/ L Remisol Chem CO2 [Moles/Vol] 26 mmol/L Normal 21 - 31 mmol/L Remis ol Chem Creatinine [Mass/Vol] 0.9 mg/dL Normal 0.5 - 1.3 mg/dL Remisol Chem eGFR 85 mL/min/1.73 m2 Normal >=59mL/min /1.73 m2 Remisol Chem Glucose [Mass/Vol] 77 mg/dL Normal 55 - 199 mg/dL Re misol Chem Potassium [Moles/Vol] 4.2 mmol/L Normal 3.5 - 5.3 mmol/L Remisol Chem Sodium [Moles/Vol] 130 mmol/L Low 135 - 145 mmol/L Remisol Chem Urea nitrogen [Mass/Vol] 8 mg/dL Normal 5 - 21 mg/dL Remisol Chem Urea nitrogen/Creatinine [Mass ratio] 9 mg/mg Low 10 - 20 Remisol Chem COAGULATIONOrdered By: Ambika Stevens on 11-19-2024 aPTT Coag (PPP) [Time] 38.5 s High 25.1 - 36.5 second(s) [facility] Auto Coag Comment on above: Interpretive Data: [...] the same coagulation reagent and instrumentation as [facility]. Currently there are no coagulation studies available worldwide for children to 14 days, and no normal ranges. Heparin therapeutic range (represented by Anti-Factor Xa activity of 0.2 - 0.4 U/mL) corresponds to PTT of 56.6 - 109.0 sec. INR Coag (PPP) [Relative time] 1.11 {INR} Invalid Interpretation Code [facility] Auto Coag Comment on above: Interpretive Data: I NR results are specifically intended to assess patients stabilized on long-term Anticoagulation therapy suggested INR s Less Intensive Anticoagulation 2.0 3.0 Conventional Range 3.0 4.5 PT Coag (PPP) [Time] 12.5 s Normal 9.4 - 1 2.5 second(s) [facility] Auto Coag Comment on above: Interpretive Data: [...] the same coagulation reagent and instrumentation as [facility]. Currently there are no coagulation studies available worldwide for children to 14 days, and no normal ranges. [facility] CAPILLARY GLUCOSE POCon 11-19-2024 Glucose [Mass/Vol] 78 mg/dL 55 - 99 mg/dL [facility] Comment on above: Cleaned Meter Original Ordering Provider: DO Axel Hernández [facility] BMPon 11-12-2024 Anion gap [Moles/Vol] 7 mmol/L Normal 6-16 [facility] Comment on above: Performed By: #### 2 [id number] #### [facility] [address] [place] [address] Calcium [Mass/Vol] 8.8 mg/dL Low 8.9-11.1 [facility] Comment on above: Performed By: #### 2 [id number] #### [facility] [address] [place] [address] Chloride [Moles/Vol] 97 mmol/L Low 101-111 [facility] Comment on above: Performed By: #### 2 [id number] #### [facility] [address] [place] [address] CO2 [Moles/Vol] 28 mmol/L Normal 21-31 [facility] Comment on above: Performed By: #### 2 [id number] #### [facility] [address] [place] [address] Creatinine [Mass/Vol] 0.9 mg/dL Normal 0.5-1.3 [facility] Comment on above: Performed By: #### 2 [id number] #### [facility] [address] [place] [address] Glucose [Mass/Vol] 106 mg/dL Normal 55-199 [facility] Comment on above: Performed By: #### 2 [id number] #### [facility] [address] [place] [address] Potassium [Moles/Vol] 4.4 mmol/L Normal 3.5-5.3 [facility] Comment on above: Performed By: #### 2 [id number] #### [facility] [address] [place] [address] Sodium [Moles/Vol] 128 mmol/L Low 135-145 [facility] Comment on above: Performed By: #### 2 [id number] #### [facility] [address] [place] [address] Urea nitrogen [Mass/Vol] 12 mg/dL Normal 5-21 [facility] Comment on above: Performed By: #### 2 [id number] #### [facility] [address] [place] [address] Urea nitrogen/Creatinine [Mass ratio] 13 No Units Normal 10-20 [facility] Comment on above: Performed By: #### 2 [id number] #### [facility] [address] [place] [address] CHEMISTRYOrdered By: SYSTEM SYSTEM on 11-12-2024 Anion [...] (Bld) [Mass fraction] 5.4 % Normal <=5.9% [facility] ChemAutoSS [id number] 11-12-2024 HbA1c (Bld) [Mass fraction] 5.4 % Normal <=5.9 [facility] Comment on above: Performed By: #### [id number] #### [facility] [address] [place] [id number] Inpatient Patient Summaryon 11-12-2024 Inpatient Patient Summary Inpatient Patient Summary [address] [facility] Clinical Discharge Instructions PERSON INFORMATION Name: DARIEL ZABALA PHYSICIANS Admitting Physician: Axel Hernández DO Attending Physician: Axel Hernández DO PCP: Kylah Medina MD Discharge Diagnosis: Carpal tunnel syndrome on left Comment: PATIENT EDUCATION INFORMATION Instructions: Catherine Gonzalez Carpal Tunnel Release Instructions (Custom) (CUSTOM) Medication Leaflets: Follow up: With: Address: When: Axel Hernández [address] [place] [address] Business (1) Comments: Keep scheduled appointment Type Location Start [facility] 11/19/2024 2:15 PM 11/19/2024 2:45 PM Confirmed Cardiology Follow Up (FT) FT.Cardiology Clinic 12/12/2024 10:15 AM 12/12/2024 10:30 AM Confirmed Medicare Wellness Subsequent [facility] Jackie 05/02/2025 8:00 AM 05/02/2025 9:00 [...] 1. fluticasone nasal (fluticasone Nasal 0.05 mg/inh [place]) USE 1 SPRAY IN EACH NOSTRIL TWICE [...] Tablets By Mouth every day. Comment: Normal [facility] Outpatient Surgery Discharge Instructionon 12-30-2024 Outpatient Surgery Discharge Instruction Outpatient Surgery Discharge Instruction [place] [id number] Patient Discharge Instructions PERSON INFORMATION Name: DARIEL [...] THE NEAREST EMERGENCY ROOM OR CALL 911 Rolf DARIEL ZABALA, have received the attached patient education materials/instructi ons and have verbalized understanding: May we do a follow up call? Yes No I was present when discharge instructions were given Patient Signature Date Clinican/Nurse Signature Date Follow up: With: Address: When: Axel Hernández [address] [place], [place] [id number] Business (1) Comments: Keep scheduled appointment Type Location Start [facility] 11/19/2024 2:15 PM 11/19/2024 2:45 PM Confirmed Cardiology Follow Up (FT) FT.Cardiology Clinic 12/12/2024 10:15 AM 12/12/2024 10:30 AM Confirmed Medicare Wellness Subsequent [facility] FM Jackie 05/02/2025 8:00 AM 05/02/2025 9:00 AM Confirmed Pharmacy Information: You may receive a survey from [employer] asking you to rate your care experience. Your feedback is important and will help us understand what we do well and how we can improve the quality of care we provide to you, your loved ones and our community. It???s an honor to serve you. Thank you for choosing [facility] HERE ARE THE MEDICATION CHANGES THAT [...] 1. fluticasone nasal (fluticasone Nasal 0.05 mg/inh [place]) USE 1 SPRAY IN EACH NOSTRIL TWICE [...] Mouth every day. PATIENT EDUCATION INFORMATION Instructions: Robert, [facility] CARPAL TUNNEL RELEASE INSTRUCTIONS Post-Operative Week One You will be in a soft dressing from mid palm to forearm. Please remove dressing two days after surgery. At that point, clean daily with peroxide or betadine and place daily fresh bandaids. Cover for showers with waterproof bandaid, op site occlusive dressing (more content not included)... Normal [facility] TSH With T4fr Reflexon 11-12 TSH Qn 2.17 m[IU]/L Normal 0.34-5.60 [facility] Comment on above: Performed By: #### 1 [id number] #### [facility] [address] [place] [address] eGFRon 11-12-2024 eGFR 85 mL/min/1.73 m2 Normal >=59 [facility] Comment on above: Performed By: #### 1 [id number] #### [facility] [address] [place] [address] Ambulatory Visit Summaryon 1 01-02-2024 Ambulatory Visit Summary Ambulatory Visit Summary DARIEL ZABALA:1940 Visit Date:11/01/2024 Ambulatory Visit Instructions Your Diagnosis [...] Tab) fluticasone nasal (fluticasone Nasal 0.05 mg/inh [place]) gabapentin (gabapentin 300 mg Cap) glimepiride (glimepiride [...] Appointments Tuesday 9:20 AM EST With: Where: [address] [address]- Tuesday 2:15 PM EST With: Where: [facility] Tuesday 10:15 AM EST With: Dixon Dubose PA-C Where: [facility] 2024 8:00 AM EDT With: Where: [address] [place] [address]- Medications What How Much When Instructions Unchanged [...] fluticasone nasal (fluticasone Nasal 0.05 mg/ inh [place]) See instructions USE 1 SPRAY IN EACH [...] Unchanged ubiquinone (CoQ10) See instructions Unchanged warfarin (Jantoven 5 mg oral tablet) [...] choosing us for your care. Normal [facility] Family Medicine Office/Clini c Noteon [...] cardiovascular disease) (I25.10: Atherosclerotic heart disease of [place] coronary artery without angina pectoris) Denies CP. [...] Recent) 3074 (more content not included)... Normal [facility] Comment on above: Result Comment: Elec tronically Signed By: Adam COHN, Kylah Lopez.br\Date and Time Signed: 11/01/24 09:42 EST BMPon 10-30-2024 Anion gap [Moles/Vol] 11 mmol/L Normal 6-16 [facility] Comment on above: Performed By: #### 2 [id number] #### [facility] [address] [place] [address] Calcium [Mass/Vol] 9.0 mg/dL Normal 8.9-11.1 [facility] Comment on above: Performed By: #### 2 [id number] #### [facility] [address] [place] [address] Chloride [Moles/Vol] 96 mmol/L Low 101-111 [facility] Comment on above: Performed By: #### 2 [id number] #### [facility] [address] [place] [address] CO2 [Moles/Vol] 27 mmol/L Normal 21-31 [facility] Comment on above: Performed By: #### 2 [id number] #### [facility] [address] [place] [address] Creatinine [Mass/Vol] 0.9 mg/dL Normal 0.5-1.3 [facility] Comment on above: Performed By: #### 2 [id number] #### [facility] [address] [place] [address] Glucose [Mass/Vol] 87 mg/dL Normal 55-199 [facility] Comment on above: Performed By: #### 2 081220 #### [facility] [address] [place] [address] Potassium [Moles/Vol] 4.7 mmol/L Normal 3.5-5.3 [facility] Comment on above: Performed By: #### 2 [id number] #### [facility] [address] [place] [address] Sodium [Moles/Vol] 129 mmol/L Low 135-145 [facility] Comment on above: Performed By: #### 2 836118 #### [facility] [address] [place] [address] Urea nitrogen [Mass/Vol] 15 mg/dL Normal 5-21 [facility] Comment on above: Performed By: #### 2 538509 #### [facility] [address] [place] [address] Urea nitrogen/Creatinine [Mass ratio] 17 No Units Normal 10-20 [facility] Comment on above: Performed By: #### 2 330642 #### [facility] [address] [place] [address] CBC w/ Auto Diffon 4 Basophils/100 WBC (Bld) 0.9 % Normal 0.0-2.0 [facility] Comment on above: Performed By: #### 2 368185 #### [facility] [address] [place] [address] Basophils/Leukocytes Auto (Bld) [Pure # fraction] 0.0 E9/L Normal 0.0-0.2 [facility] Comment on above: Performed By: #### 2 379559 #### [facility] [address] [place] [address] Eosinophils (Bld) [#/Vol] 0.2 E9/L Normal 0.0-0.5 [facility] Comment on above: Performed By: #### 2 052241 #### [facility] [address] [place] [address] Eosinophils/100 WBC (Bld) 3.6 % Normal 0.0-8.0 [facility] Comment on above: Performed By: #### 2 249108 #### [facility] [address] [place] [address] Erythrocyte distribution width (RBC) [Ratio] 13.4 % Normal 10.9-14.2 [facility] Comment on above: Performed By: #### 2 410321 #### [facility] [address] [place] [address] Hematocrit (Bld) [Volume fraction] 36.3 % Low 37.7-49.0 [facility] Comment on above: Performed By: #### 2 035483 #### [facility] [address] [place] [address] Hemoglobin (Bld) [Mass/Vol] 12.8 g/dL Low 13.5-17.5 [facility] Comment on above: Performed By: #### 2 594861 #### [facility] [address] [place] [address] Lymphocytes (Bld) [#/Vol] 1.5 E9/L Normal 1.0-4.0 [facility] Comment on above: Performed By: #### 2 966676 #### [facility] [address] [place] [address] Lymphocytes/100 WBC (Bld) 30.1 % Normal 14.0-50.0 [facility] Comment on above: Performed By: #### 2 899536 #### [facility] [address] [place] [address] MCH (RBC) [Entitic mass] 31.7 pg Normal 27.0-34.0 [facility] Comment on above: Performed By: #### 2 066651 #### [facility] [address] [place] [address] MCHC (RBC) [Mass/Vol] 35.2 g/dL Normal 31.4-36.0 [facility] Comment on above: Performed By: #### 2 010460 #### [facility] [address] [place] [address] MCV (RBC) [Entitic vol] 90.1 fL Normal 80.0-100.0 [facility] Comment on above: Performed By: #### 2 160933 #### [facility] [address] [place] [address] Monocytes (Bld) [#/Vol] 0.4 E9/L Normal 0.2-1.0 [facility] Comment on above: Performed By: #### 2 372463 #### [facility] [address] [place] [address] Neutrophils (Bld) [#/Vol] 2.9 E9/L Normal 2.0-7.5 [facility] Comment on above: Performed By: #### 2 996163 #### [facility] [address] [place] [address] Neutrophils/100 WBC (Bld) 56.9 % Normal 36.0-75.0 [facility] Comment on above: Performed By: #### 2 862734 #### [facility] [address] [place] [address] Platelet 175.0 E9/L Normal 150.0-500.0 [facility] Comment on above: Performed By: #### 2 972230 #### [facility] [address] [place] [address] Platelet mean volume (Bld) [Entitic vol] 9.1 fL Normal 6.4-10.8 [facility] Comment on above: Performed By: #### 2 167541 #### [facility] [address] [place] [address] RBC (Bld) [#/Vol] 4.0 E12/L Low 4.3-5.9 [facility] Comment on above: Performed By: #### 2 293453 #### [facility] [address] [place] [address] WBC corrected for nucl RBC Auto (Bld) [#/Vol] 5.1 E9/L Normal 4.0-11.0 [facility] Comment on above: Performed By: #### 2 332952 #### [facility] [address] [place] [address] CHEMISTRYOrdered By: SYSTEM SYSTEM on 10-30-2024 Anion [...] 10-30-2024 eGFR 85 mL/min/1.73 m2 Normal >=59 [facility] Comment on above: Performed By: #### 1 [id number] #### [facility] [address] [place] [address] Family Medicine Office/Clini c Noteon 09-10-2024 Family [...] # 90 tab(s), Refills(s) 0, Pharmacy: [facility], 178, cm, 09/10/24 13:01:00 EDT, Height/Length [...] Daily, 1 refills fluticasone Nasal 0.05 mg/inh [place], See Instructions gabapentin 300 mg Cap, 300 [...] Diabetes mellitus (more content not included)... Normal [facility] Comment on above: Result Comment: Elec tronically Signed By: Adam COHN, Kylah Lopez.br\Date and Time Signed: 09/10/24 13:19 EDT General Surgery Office/Clini c Noteon 08-28-2024 General Surgery Office/Clinic Note General Surgery Office/Clinic Note Chief Complaint ref- hernia HPI Staff COGNOS ANALYST Dariel is an 84 y.o. male here [...] E&M of New Patient Low 30-44 Min 94149 2. ASCVD (arteriosclerotic cardiovascular disease) (I25.10: Atherosclerotic heart disease of [place] coronary artery without angina pectoris) The patient require surgery he will require cardiac clearance Ordered: E&M of New Patient Low 30-44 Min 95159 3. Longstanding persistent atrial fibrillation (I48.11: Longstanding persistent atrial fibrillation) Should patient require or opt for a robotic repair he will need to hold his anticoagulation for 5 days prior to the procedure Ordered: E&M of New Patient Low 30-44 Min 71863 Follow-up No qualifying data available Problem List/Past [...] Oral, Daily, 1 refills Flonase 0.05 mg/inh [place], 1 spray(s), Nasal, BID gabapentin 300 mg [...] virus vaccine, inactivated 08/02/2014 Recorded Normal [facility] Comment on above: Result Comment: [...] mg Tab) fluticasone nasal (Flonase 0.05 mg/inh [place]) gabapentin (gabapentin 300 mg Cap) glimepiride (glimepiride [...] EST With: Adam COHN, Kylah Cole Where: [address] [id number]- Tuesday 1:00 PM EST With: Dixon Dubose PA-C Where: [facility] 2024 8:00 AM EDT With: Where: [address] [id number]- Medications What How Much When Why Instructions [...] Unchanged fluticasone nasal (Flonase 0.05 mg/ inh [place]) 1 Sprays Nasal Inhalation 2 times a [...] choosing us for your care. Normal [facility] Family Medicine Office/Clini c Noteon 08-07-2024 Family Medicine Office/Clinic Note Family Medicine Office/Clinic Note HPI Staff Dariel is an 84 year old male presenting for one week follow up back pain IAM medrol dosepak and tramadol Steroids are done Pain characteristics: Pain location: low back Intensity:8 Onset: ongoing Medication used: steroids and tramadol, [...] day(s), # 21 tab(s), Refills(s) 0, Pharmacy: [facility]/pharmacy #[id number], 178, cm, 07/31/24 14:02:00 [...] Oral, Daily, 1 refills Flonase 0.05 mg/inh [place], 1 spray(s), Nasal, BID gabapentin 300 mg [...] 1 r (more content not included)... Normal [facility] Comment on above: Result Comment: Elec tronically [...] day(s), # 21 tab(s), Refills(s) 0, Pharmacy: [facility]/pharmacy #[id number], 178, cm, 07/31/24 14:02:00 EDT, Height/Length Dosing, 78.5, kg, 07/31/24 14:02:00 EDT, Weight Dosing tramadol, 50 mg = 1 tab(s), Oral, q4hr, PRN for pain, X 7 day(s), # 21 tab(s), Refills(s) 0, [id number] 178, cm, 07/31/24 14:02:00 EDT, Height/Length [...] Oral, Daily, 1 refills Flonase 0.05 mg/inh [place], 1 spray(s), Nasal, BID gabapentin 300 mg [...] influenza virus vaccine, inactivated 08/02/2014 Recorded Normal [facility] Comment on above: Result Comment: Elec tronically Signed By: Kylah Medina MD\.br\Date and Time Signed: 07/31/24 14:23 EDT Ambulatory Visit Summaryon 0 07-24-2024 Ambulatory Visit Summary Ambulatory Visit Summary CLIFFORDDARIEL Solitario :1940 Visit Date:07/24/2024 Ambulatory Visit Instructions Your [...] mg Tab) fluticasone nasal (Flonase 0.05 mg/inh [place]) gabapentin (gabapentin 300 mg Cap) glimepiride (glimepiride [...] PM EDT With: Kylah Medina MD Where: [address] [address]- 2023 9:15 AM EST With: Kylah Medina MD Where: [address] [address]- Tuesday 1:00 PM EST With: Dixon Dubose PA-C Where: [facility] 2024 8:00 AM EDT With: Where: [address] [id number]- Medications What How Much When Instructions Unchanged [...] Unchanged fluticasone nasal (Flonase 0.05 mg/ inh [place]) 1 Sprays Nasal Inhalation 2 times a [...] choosing us for your care. Normal [facility] Family Medicine Office/Clini c Noteon 07-24-2024 Family Medicine Office/Clinic Note Family Medicine Office/Clinic Note HPI Staff Dariel is an 84 year old male presenting for ER follow up ER followup: Hospital: [place] Visit date: 07/14/24 Symptoms the patient presented [...] patient was under the dosed. Patient stated [place] was helping him more. Patient denies any [...] - Will do Tizanadine - Will do [place] for pain - Follow up in 1 week. - Will send to pain Ordered: [facility] External Ambulatory Referral 2. Inguinal hernia of left side without obstruction or gangrene (K40.90: Unilateral inguinal hernia, without obstruction or gangrene, not specified as recurrent) - Pt cancelled his surgery. - NO pain at this time. - Encouraged follow up Ordered: [facility] External Ambulatory Referral 3. Nonsmoker (Z78.9: Other specified health status) - Please continue to not smoke Ordered: Body Mass Index (BMI) documented 3008F Current tobacco non-user 1036F Depression Screening Negative 3352F [facility] External Ambulatory Referral Most recent diastolic blood [...] q8hr, # 90 tab(s), Refills(s) 1, Pharmacy: [facility]/pharmacy #[id number], 178, cm, 07/24/24 14:57:00 EDT, Height/Length [...] Oral, Daily, 1 refills Flonase 0.05 mg/inh [place], 1 spray(s), Nasal, BID gabapentin 300 mg Cap, 300 mg= 1 cap(s), Oral, Daily, 1 refills glimepiride 2 mg Tab, 2 mg= 1 tab(s), Oral, Daily, 1 refills Jantoven 5 mg oral tablet, 5 mg= 1 tab(s), Oral, Daily levothyroxine 25 mcg (0.025 mg) Tab, 25 mcg= 1 tab(s), Oral, Daily, 1 refills [place] 325 mg-5 mg oral tablet, 1 tab(s), [...] No. Househol (more content not included)... Normal [facility] Comment on above: Result Comment: Elec tronically [...] Care Team Attending Physician - Kylah Medina MD. Primary Care Physician - Kylah Medina MD. This Is Your Medications List Turmeric [...] AM EST With: Kylah Medina MD Where: [address] [address]- Tuesday 1:00 PM EST With: Dixon Dubose PA-C Where: [facility] 2024 8:00 AM EDT With: Where: [address] [address]- Medications What How Much When Instructions Unchanged [...] choosing us for your care. Normal [facility] Family Medicine Office/Clini c Noteon [...] BID, 16 gram, Refill(s) 0, each nostril, [facility]/pharmacy #[id number], 178, cm, 07/03/24 10:05:00 EDT, Height/Length Dosing, 80.8, kg, 07/03/24 10:05:00 EDT, Weight Dosing gabapentin, 300 mg = 1 cap(s), Oral, Daily, # 90 cap(s), Refills(s) 1, Pharmacy: [facility], 178, cm, 07/03/24 10:05:00 EDT, Height/Length Dosing, 80.8, kg, 07/03/24 10:05:00 EDT, Weight Dosing omeprazole, 40 mg = 1 cap(s), Oral, Daily, # 90 cap(s), Refills(s) 0, Pharmacy: [facility], 178.2, cm, 02/02/24 10:29:00 EDT, Height/Length Dosing, 84.1, kg, 02/02/24 10:29:00 EDT, Weight Dosing sildenafil, 100 mg = 1 tab(s), Oral, Daily, PRN for erectile dysfunction, 1 hour before sexual activity, # 5 tab(s), Refills(s) 0, Pharmacy: [facility], 178, cm, 07/03/24 10:05:00 EDT, Height/Length Dosing, 80.8, kg, 07/03/24 10:05:00 EDT,... 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 Normal [facility] Comment on above: Result Comment: Elec tronically [...] influenza virus vaccine, inactivated 08/02/2014 Recorded Normal [facility] Comment on above: Result Comment: [...] November and January and was hospitalized in [place] for 2 of those. He states that [...] with voice recognition artificial intelligence software, specifically [employer], [employer] and or [employer]. Substitutions may have occurred due to the inherent limitations of voice recognition and artificial intelligence software. Total time spent pr (more content not included)... [facility] Comment on above: Result Comment: [...] BY: Kashif Barnett MD ca Dictated: 05/27/2024 [id number] Transcribed: 05/28/2024 [facility] Comment on above: Result Comment: Elec tronically Signed By: Ericka COHN, Kashif Craig\.br\Date and Time Signed: 05/29/24 13:13 EDT Coding Summary.on 05-09-2024 Coding Summary. [id number]+P GhlYWQ+GZ6RKFDxF79d hPKbiI1qT7UEKZpGFzx gQVBQTElOSyIgbmFtZT 1kaXNjZXJu IC8+MD6qUSYxUtlhdXR ci4C5bRJ4W16yad4eAT mciAE2MGUpKfZmlymrl 0kasDy2PRoxQalrRgZs SWQriE96DGE4tF54Ho3 8hDPcsXFha9glgWa4Ua EqLWVtWKR0kXmuXMfbf 7EePMJbF49xhYQws6K1 IGNvbGxhcHNlOyBlbXB 8pC1kWSckfsplp6ukgz qcPjg2kv29qRZzn7Q8z BM0C4SmapZ2VWDztPPm HhcvcIKEdQ4mecmfp6o pyrpjWzAzRDCrJFx9HB g1HLGomXdyTqNeOW20K FS3EZFmqkDoC3FgRAKw wDhxBjC5x9N7Aa5RS6T DFezdZ6OEPLRVLKmbkZ Q+MY15lf99W3XvVskjY ad7JPZgOOU8fJL6mG1r FIGiGVraa7Y9aZV2G4O zeuLjxh7xq3hjXABbPJ xdY47uxMWkc1S1AJHab KN4REAuqLxqHaUrtP21 Oyc+TGBvvJvna0HrTjx gh8vxg1slmRt0KigjFF LkubLjhIacKYO8m1ZgK c1hMABinFW9vLS5bG5t GqWfIrX9XUkzR697IiH tiIFxVsqvX17oZ0WwwO A+VWEpCdn5DZBgcIepA T6qE1UpFIOvsfrrwXBd hKgsTK0tLKIdwkgtZOM qkV1mXTIjJ4c3JqCmTd Q1FJfpC1DhRUAaltntU f81hJ2cEeWlJlV5JPzk L4YlhiH7DSUmxMBiCPt aWRN6E19bj1F1QLCqEX WzKRD9nCU9jP8zdOxxk jogbGVmdDsgdmVydGlj WXzxMLafP418GDXzsVv nPkNvZGluZyBEYXRlOi AgMDYvMjYvMjAyNDwvd GQ+JIEaIUE2eGxoAFEd oUKpORadQd0foJxiuMh tFJ0jFLAkqtcfESAgpD 2cUAYoqADjlUmaLA0lK CSsugqqg476SsDsYZD0 BTOwkLTgL1EdpA4pSqH kDTXwCZPoR6QiqRZcXC ruY465PPseXqU2BUEbi rLzC3QnLUTfiRqyTuN4 t2X2Hh4Gb2SppvadO9W clKEgUiObHcwoPNl1H0 RkPjwvdHI+HF06ICSvL D26KJt0ULN9oUstOSxt VAIlL7KvqB2yMrExUHR kZGRkOyc+PHRhYmxlIH dpZHRoPScxMDAlJyBzd YevZH5hXl6dMRQmEMVc rCiarZXoCmMuu1kpLSD aCCzfHA8kkYtnO3LkfQ P8HZGdq7t5Ta20T04pW 3JvdXA+KGWpiIW8eLF1 yE9xUvZgXaP3EVugQ68 5SaEfyAUnYygew9eqq3 nuyCr8VoJ6WKUlyoEpb TlqAEK9k1NkGn27R50u IHdpZHRoPSIxNSUiIHZ ztSzyzq6aiC4zPa3+PG YwhUZ2zHV7dJ9mTzMgT pE8ERgfE401GlWizKFx Ivdhn0qou8dolBb5BrL eNEHqovUonBocJVB6k9 IzTv04U6KfkFzge8SmP su3wn76jOBry8D8pCM3 A7CiVJQwyznsrJAyuOc tEL0sZDRohjfrGMZlrQ 9hVSJoW8b4TcUkMcR4M NruG4MinrE8XPLhxYFa RGLttVZZoU4svlipv2o ypxbmRdKvVGCyJEy6DA l1RTXtiObvBwJbTOK7S wU6CIN5tTZddO0hyEtu qzrlvP2zJul+DLL4iMT ukFEJKF0bXbcioGJ+PH WgYBW7mBozBYlcWTZle Y9cIQRvA5p3YiLmXeZ5 BZzzM7HqtiS1YZFzyIT jMFFazVMXbR8loeiaj5 izsecuRwVzNBPjZSg2P Lu0TAVshYaeDgXaDRZ7 NjM0TIX0kIDtfQ0rhHe wkonkzM1gFjv+QmlydG bnWPK8TLz7J4UiPvg5V CMkuGdcQW0mhWGyJQkx Vl5qtBlemEeuSV9iQIG zsactc183YoDoq1rhPD CojMGuHGkpNVF4R55pk 7W5YSRhFHJuPRQ0eIS1 pY5rcHdlbrtmmJSplUg gdmVydGljYWwtYWxpZ2 83TZCaqKiaEgQkHPw6T 7AoVkb6WVLwfHtzHK6r jACmPVkiTh3duGaooMr sKB4zOYPolzewf508Cq Mcf7qxDWGkbZRdVWsdA AC5U22uy0S3FKCdFYBz LTY3mTY7oF8kuNyxmgl gbGVmdDsgdmVydGljYW kpROqfN084MKTcwIjgT qMheKk6D7EoItl2ULTe fZjhDZ0agLGsNVepUt9 xfNlorBreLU1sKODvfp bgn898GvDsb5imVMNam JNiNVwbLOT3K01rt8Y5 BHXdQAXgSTX9jDM3xH5 hbGlnbjogbGVmdDsgdm JyqBglGRwoZRpcZ776R HRvcDsnPlBhdGllbnQg YWdgDGl8T3GcLdjhiJP +OO05RSGgDV74pYOmzS Joe1aqwLi9CqKqLVMiV ZM7xEvySRdns1AfSCGf M13vrPObt1N8BMCkzXu awOViLoZekAA6vM6wNO wntblyu8zkywhfZirdx 3lted09gJ66Q50vRRtm ZHRoPSIzMCUiIHZhbGl lkh2hfY0pSi0+PGNvbC X5gRK4cL0yBAGvJeQ3B LsqV404CuMmmJLqAajx r9foh4eifYh8DdN4DZG safBspHdcEDL5h9SxKi 24A56bBGfxHHRpIULgL PMlIBVrhHvcxt5okJ6e Ii8+CTQeaVS7jCL9rO2 mZfMfEkR6DNswO301Cp KwdHOhWpxzB55iG3Ljp XA+YSHaJsf1RXMrgIby FV7dqJIpBHyzVm5lHVM 3IiEoVhUaEXasL0DzTA AhquvcctkqbWJ6AMZxT WYweZ02Zp8lmToqSILe mRYDbF1zbgqso5aqhcm jJyQmJKJfHYm1QQn9WI NewMltMkCgQWT8OkF9G WG5tPYlpS0hgAbuvbaj hA9rV0TaZDSvajojMo6 1kV6jFhYnDzW3ASzhNx c+YxMGRibtTr5CNAFPM B25EO59iTQno2C9gWK2 V7BdRKCcajvybbsxcDT 0GMIwMODzrB90gSBdRS upVu3es3K4n186HCRdP LRrvS86Gb0wdGcoRMRe mZXPqH8lbkfqm1hpshi bZwAyDZSjZTa2DSu6IU ClwXwmNhVkOQX1BrY0I YC3yGIztN0psQvlhkys iX2tSfx+MDYvMDkvMTk 0MjwvdGQ+UGUwPAR4fD mjHAmzHLAjfD1gLIXaE 4m2JpIwWsH8WIrxJ1Sf BSVkbazkEr99kL1kPsV pOpD9FNqmS1YwqzZ1OD RxkOUfTTsvITR3N39uy 0J0TXClMBGcVLB0oFZ5 lA9cgEvhwriufMIpzMd gdmVydGljYWwtYWxpZ2 46IHRvcDsnPjgyIFllY ZWfVL46TF43rQOkq2G2 dRJ0I5VqRJRzlwauvmo rwSG9PUBsNEIjfF16wC BqEEctCv8kh7E1m875X GBgKLPbrR64Ev9rlQvz QKGaeMHSwI5gqxmmt3u krcbuDfAwKIRrSLa4LN p9RYRkcRxzJgDdHEK7A uG2PAV5iPIjaH0qnLfk fzjdqO6yRok+TWFsZTw vdGQ+IPBjYUO4aZwiVL jkVCLcdG2hDCZmN1r4B cItRgH4JGzlA0JsNMNk hipjEx79tU0qNlKiCdZ 6FXhxD6KtvcR1OCJxxH RdDUwyVZP6E01zy3J6G KJePQPqXQF9nAV8rP2i bGlnbjogbGVmdDsgdmV dgRcxVVpgCGwmE738HE HiiJcrVa54zVFycWgcs pK5P0ZhNtunxJN+PC90 NSCrVP06fPNplCZvn7k haLi8VwDbHKJsWHN8lS qmZNqgj9BePWHuY49lp EZrs8S4BEPprMtrbLUg MqQenHU2sP7lJAaybob cy0fcyjrhCvvct7idaz 71eE88P54mFFfaFLYpK UKrYKPgEPBfqNtmyr4q nM5gDx3+MRUuiOO8kJK 2fG6wSkOgKgJ1KRmjV8 61FaCluDXsSleaf8zrw 4qpeYb7HaJsJFAatnWp hAgiRRE7a7FhYl44A47 sIHdpZHRoPSIyMCUiIH MbeErdkd0ljM2oIv4+P V4tz4nafo06iT34fER+ ZPAhUZU9iXxeNNmgEEZ toR1iMYvbQfB1TTDpHx JohL80kMFzXNpsHg0fq WfrtEkrWB4yDKFpvwpc q846LmWbf6inOMXklEV xVVqtOZA5W46yz7C4XL NrQIOdVFO8bGN8oO8fm GlnbjogbGVmdDsgdmVy xCclKAjgMAzsC160VIE giHjwJgNhvMDoS2gvda FFQE2kVqvgbBW+PHRkI RA4iBckGPjiETIooQ4d XBOfI5e5CwKkKqN3IQf eQ9BpnuB7AHPhhTXmEN UphILOaD9qqgdkp6icn mxiUyCfLWFfUCr2YRw8 KLDafMzuOhTwXYM2OuP 2YWK3cPBiqR4jzRufzz sjuH4hHxk+RklOOjwvd GQ+CQBkHIR1vKeuEGpo LCLtlE6lZVSoG9d1NfP rZoK5QCrcG2NrppO7WR JdcFHeDAVmgANYfS0hr lkyl9kramjoUpWrKYJl LPi9JVr6BVQqsMysMqP yYEI2VvF7GTG9gSMvrA 5gcNkphilkgU0bPfp+T VJOOjwvdGQ+PHRkIHN0 cBftEAqoQQFzoZ5nPQT kL1z2UwMxKjE5FDwzG3 OavhH1KGQkeFWsAFNan VPQaK8wduzmo0akaims NnOsAZTnRCg5JXq0ATB gkGvyDtZdIWR3BwC7FV M0aSJjaO8loFczlxywl G9wOyc+LKY3XPN5TO82 JW02O3LhDrtteYZocHX +PHRhYmxlIHdpZHRoPS xjVVNjEkPqsYnqYJ4eS r4vCCHeRDJyoApahCNt EfVdu9ubWQHxR (more content not included)... Normal [facility] Coding Summary.on 05-08-2024 Coding Summary. QMNYGywv58ZFx9tJf+P GhlYWQ+WV9WTPYkG20c gQIyoQ4dQ6YKJWxCRxy gQVBQTElOSyIgbmFtZT 1kaXNjZXJu IC8+QL9tYQNcBwshnKA av2V5aWZ7X03kth7mSE xxyQZ3PWYhCmAiovxws 9dpoTy0JAuvOqvyHxUk OJArvA05NTV2xI35Be4 2hIEytMRjx9lgzLq5Ut FbSVRtLHQ9bZoyJJfbe 8PeADLsL03qeBFnh6O9 IGNvbGxhcHNlOyBlbXB 8sM5lFEpsgefgd9ljkd umBvx5rk91cMGiq7W5c RU1E1ZjijH6HCXxnGWc UptyzXKQuO1vkeccp1k pwurdViXrVVTiLLf2JQ e5WUMarZxaPcZmVZ75Y BW5ERGvufIlB9PnVXWg hIxiBfG3e3J8Dj7BD8F MSersG8TREWIVNNoqoE Q+CW24ef90X1RsXeyyD xq9EMVkRFR2qUX3cU0l WRSeFIaid4V6zUM9N3B bnoItzp3ub9vkAEVkMW okD80mqYZei7A0ASLog NE6EPVfvXriUkFeqQ32 Oyc+ACKqjDzkb1SqZmm wg3wjt7trzXn9FwkhAA WhqnBwcGowHJM4b0BtE o0vSSTvfHF5xXL0pA1n DwCkSnE4GUctS840HiS fmMOdYnkuG88mL0ComH A+FHCjEji9MAFmuMzpM E9kD1CqPQVmbatorAFm ePtbFT8dIVBhijcuRXQ wsF2hASWcW3i4YvSrRw R0PPubR5PoZHGzkeawV q02fJ4uTgNpKdD3UFxc F5SjnvE2MEIwwXNoQTj sSDE7L21nw5C7FQGmVJ RuJMV9zRM5pS6ptBams jogbGVmdDsgdmVydGlj TDcxWNyxA551VVXqqOw nPkNvZGluZyBEYXRlOi AgMDYvMjUvMjAyNDwvd GQ+KHZmOKQ4dWecRKFk bIMzEJcvOz2waEkhzWt pSG0jUYEpcaajWOFveX 0oCILbkQBtfNczGO7mE WAqkeyfv187VrTzSOQ2 PORyzPXeX7InlI8jFgD gYIKvSLUqC0ZvjGQaGR vdW378BOsvQaO2QJVin yKuG7RsBZYbgUqhYmW8 s9U6Bn8Dv0BbayqwU6Z acNGvFyJpQtdvBKk9A3 RkPjwvdHI+HU38VCNxX A36VQv4UVR5xWdtREpp EYPzT8NyyV5gFkFlZKZ kZGRkOyc+PHRhYmxlIH dpZHRoPScxMDAlJyBzd PnhKV4kOl7vLWQbANDz aDnauMAlPfLon9spYBB gRLrhBP5iyGdvS4IjqZ Q9GKOis7z7Dn57F54wD 3JvdXA+FLDpxBQ4sSV3 tR8pUfDkQjJ6ERpxT54 3JlNdtREfKsnsi8adz9 nicCw6BtH2ORSwjcRxt LatDXF1u9BeIr91I25g IHdpZHRoPSIxNSUiIHZ igXsmcr5suB5yBm7+PG FlzBD2wGI0pX7uIrSjP vV2IYvlT004OiAwcJKr Klwlx9whh3ohtLh0EgW kGMVttcGvsHghAYK2l9 LbIf03X6PvzRxhi3QdN zz9qr64fMNcm5B2iFO9 Y4NiXGZdvipunHNheBz vRR3iPPYntrgvIYMjbO 2xSXNmO9x5GhMcAoA2R EieE7QywiP7GXKjiRPo XFBxlFFBwX5aprtbg0x addayIqYoNYZdINq1RP h7QVAqeEdvFkHkAEC0B vY3XEA5dRIedE1btShf vvtuxG4bYyz+GVN1zRN qeUTTEU2wByhhsEK+PH ZnBFE5dMldJLtkKAPyl L4oVEQrE5w1CgCbZwU6 YVbiS9ZqeyQ4KDGutZM kZHZppKKCxT5frkeht5 smdbqfBpCgKUFjTJe0L Jq7FKUuvWjbAhYyHGV3 QbX2VFD4hWCfmM1cxEg iactctC3sOzl+QmlydG ohXMP7WJl2M8JfHrp8F ATxkSafXG2vgWGkWRwl Tk7izJtsgPasPE4jGGA gpihsy611MwAeg6nxLG FspNMiNSnfPIZ5O17oy 9V2KLKcBJDiRVF5aRG6 xV2njTknltrjpTXyaCr gdmVydGljYWwtYWxpZ2 94YHNknNhvUfUkPXw9A 7EjQzz4XRLchTjuSR6t dCZuWXylLj8ssFxziQe eLT3hQHHjekajk705Qx Wyc5vpZBWpeMQwACevY NM3X98hd4V2KMStPCRj MXP8eCZ5wQ6vdVvewhj gbGVmdDsgdmVydGljYW zgTTnaN955JWSmwAriG kKunSy7H0ZgJqv7KXBu rQofGY2qcSNhMTzeDv1 ppLzfxRusOH3iPTRxtl fqg448UoIjb2vjLNKtp FTvZIaxDQJ1J97fk2I9 XNDgAEGyCXI0jVL8kQ6 hbGlnbjogbGVmdDsgdm GdhPhlWPmdWBltG906G HRvcDsnPlBhdGllbnQg COwyYJt1S8DvAthwbRP +KH61CKOaFR10xPQriK Hlt3ouvOo2VrLrQUAyS HK6eKjpPPepe0SdWSKj D29fhCQlg9O6ZUJznQx xxGBzWpFhbEH3eA7uVJ kyzapto1zudpipBryqv 8qzzw70rB47D01uYAns ZHRoPSIzMCUiIHZhbGl aio4ggU7rWc6+PGNvbC W1hKB7uH4xTEOxZuZ7T MqnS621TlRnwOLoBlbm u5ewh4aqmNo4QqC2XAQ ataRmeSjeWAH4f0XtYj 51O97vEKbrMHIuCMTqP KLcVNRwhWctca7tlU8o Ii8+KQCuxJE3hCD8aW3 tLoInUuM0SAvbE695Ny BzmKVnIabnJ72qI0Los XA+ERQvRhg8SFRctObf KD2qfAKlUAyvZr9tIZQ 6JbJuEvImLJmgM4ZwFN CqwcvnhsvnaPX7ZRLuP PReyK46Ki6yfDnoYEXv yIGFbC4hunbco4evnlb mVcDxHJKtGLg6BVc3AV TtyHmpDgEuURX8NrQ9G EP2bSUssN2flAnnbkuc iY6pY5UcXBClihihAi1 4iB6fJjBoEiF9SJspBw c+XjMVDkhuLi6TLXQNP I63RU24xTJbx3G2fVT5 X0AuNAZmzvxkcsogtEJ 2JZWsCASakS83vARdET zzCi8ck8A6g794HYEiQ XVjhP50Ld5rpAwwLHCx bXOPnV5bqnjvi1qluhm gNdIpZRFhXCe7BOs4EV NmqNqjFfSeIJJ4EzE4M PJ5kLUfcL7hjOitoejv yZ9lTfb+MDYvMDkvMTk 0MjwvdGQ+HTCjISG6kC dpTTypIRNvdP8hPGJwM 0d7AcHlXwZ2WGeaB6Fb RNDlsgiiAq18lJ3yMjN kRlK1UPxrZ2SssvQ5KV ScgDEpFMtcBRT9Y04tm 9N7CNSjNKNaHIR4fUK3 aR2raTvcemvibGNydIn gdmVydGljYWwtYWxpZ2 46IHRvcDsnPjgyIFllY CXpEG03KT14iCIhw3L5 bUX5T3QvSUJrgfszfiy diJA3BNUcKJSwqK05kT VbBMoeTs3ru6V2k999F QXwAHLryK40Kf2azBcd ISIjbLFIvC5slltvv5w qqmtjBnImXTJyOUy3ED h8JNFmbAqtLaZfBZG0I mU6BZM0fSVeaQ8ssKej aovmxS5jOex+TWFsZTw vdGQ+GHLrHLG1pLhvNG uoYDTfuF5gNJIcV0d8R uThUfU3ZLlyO7EuLRNf vrxvYy05cH5yWpMnTgC 2PNgdY9ZdekZ3QVVjnG PnRGzmQCT5C03uv4D9K CJoFPGvGLT0iGI0tD9z bGlnbjogbGVmdDsgdmV ntRunBFaoDOplH591GX IdaUorGmpjQpOEru9wY Z9eTemiwCQ+LM75ff87 V8WoFsaxDjk2QVFfRRT 6eQM2zB8iKPTeCEmin1 M3sHB2M4RmyuLtzl9cx 7ouEMXsGEzwR01jePQj u5S3OAWlkKL8HILelAg oCsBtkH36Mcj+PGNvbG dlx6ZkMwrmu4sbg2voq Er5CvLkHFEgasQnaQtd WBJ9f0LzFj72R86sZNr pZHRoPSIzMCUiIHZhbG mxxg8diY2nSj6+PGNvb VJ6lXI5lR4hToAbMpR6 PCaeU996BcRnhXJtQjz pn2jko5xowNq2QjGwVN LebnFmyDhuTXA3b2HaT n22B1XyjDohs4KvXod1 ds77zCUva7C9wJA1B6W hZGRpbmctbGVmdDogMC 9cKUGwjsdbNZKxpO5fC GNyI4d3HjAnDqC3TGmg Y4GrmjU3FQNwuNEdJJH pxHVMmO9hltqsj8ikmw dhQsRdNAWeIEq0IAu9Q GEfsHqdZcFiAQF9FeO6 NAI0nDTzrZ8qzNroikx qiQ4eKaa+JRs3l3zmzU TiTR5jdZZ9QY94EN72a WMma1U8rDM7H0ZhUCWb yqxgztgxuGJ5DZNmVVN cxP98Ma5hqYpqWa3bGI HkSMO4OGHbjWHfA5Pfu J1fUsMdXUGzCRZcZ2Sa jSNjHCzvM684VMxxNaJ 8VNOgjkHpI2DhRVIisC kvDqR0e8P2Vg9ZQM08O E46TB51wKJvu3B3sQZ1 J7PpIMTnjuhwgprlwRG 2KGPjEUTntK64Hg3lbE qkUt2bIFBsYSL9FUUgt BThS7NtgR9zMfCgXVIv EPBsY4QutOPaNIanV08 6QLscAcR0ZNXybvKoN2 NtCPAlnIcqJlK5b5D6A z2XLm37QH17SB99aLQm x1N8bPN2I2UhONZewsg sexlplHR3CVLuUESfyZ 84Ji0jvYkdWd7eMOSwX RS2YRXjeJFlF2IrvS2r ErPzFEVcVUJaA5AnxSX oCEmqS466FPcnYlI0XC JfbtKdX9UeLBJpmPsyF kG9t8F1Xk1ZVEmjbxq9 K3TiYaguzHV+XB42MYI qEK90oCBhzDUhr5qwgF q3TkTgULUwHBB4uVhmB Bnbr0RaVJDbH16mlKEe y9B6WDYchLieb (more content not included)... Normal [facility] Consultation Noteon 05-07-20 Consultation Note [id number] D#1.00TIFF [facility] Ambulatory Visit Summaryon 0 05-03-2024 [...] EDT With: Ericka COHN, Kashif Craig Where: [facility] [place] 2023 9:15 AM EST With: Adam COHN, Kylah Cole Where: [facility] [place] Normal [address] [place] [address]- \.br\ Medications\.br\ What How Much When Instructions\.br\ [...] to adjust your dosage.\.br\ ? \.br\ Take pwzc-ixe-teksqri and prescription medicines only as told by [...] active. Exercise regularly, as told by your heal [facility] Ambulatory Visit Summary DARIEL ZABALA :1940 Visit Date:05/03/2024 Ambulatory Visit Instructions Your Diagnosis DM type 2 causing vascular disease Longstanding persistent atrial fibrillation Mixed hyperlipidemia Hyponatremia Erectile dysfunction due to arterial insufficiency Syncope Your Care Team Attending Physician - Kylah Medina MD Primary Care Physician - Kylah Medina MD This Is Your Medications List Contact [...] Appointments Tuesday 10:00 AM EDT With: Where: [facility] Tuesday 1:00 PM EDT With: Kashif Barnett MD Where: [facility] 2023 9:15 AM EST With: Kylah Medina MD Where: [facility] [place] Normal [address] [id number]- \.br\ Medications\.br\ What How Much When Instructions\.br\ [...] of cylinders, a pump, and a reservoir. [facility] Medicine Office/Clini c Noteon 05-03-2024 Family [...] for MERS/COVID-19 : N/A Renetta Abdullahi LPN Krishan - 05/03/2024 8:01 EDT Medicare/Medicaid Summary Chief [...] Pain Score : 5 Renetta Abdullahi LPN Krishan - 05/03/2024 8:01 EDT Hearing and Vision [...] has just been busy, Renetta Abdullahi LPN Krishan - 05/03/2024 8:01 EDT Advance Directive FT Advance Directive : No Patient Wishes to Receive Further Information on Advance Directives : No Organ Donation Consent : No Renetta Abdullahi LPN Krishan - 05/03/2024 8:01 EDT Procedures / Surgeries FT - Procedure History (As Of: 05/03/2024 09:05:32 EDT) Anesthesia Minutes: 0 ; Procedure Name: Surgery, neck X 2 ; Procedure Minutes: 0 ; Last Reviewed Dt/Tm: 05/03/2024 08:24:28 EDT Procedure Dt/Tm: 03/26/2024 ; Location: [facility] ; Anesthesia Minutes: 0 ; Procedure [...] or twice a month. 03/06/2024 8:23 - Brenarda Mark RN: maybe 3x/ month (Last Updated: [...] Renetta Abdullahi LPN - 05/03/2024 8:01 EDT [facility] Risks Grid Sexual problems : Never [...] Depression Screening (more content not included)... Normal [facility] Comment on above: Result Comment: Elec tronically [...] is seeing cardiology and did not tell senior radiation therapist or myself that he had been taking [...] Daily, # 90 tab(s), Refills(s) 0, [facility], 178.2, cm, 02/02/24 10:29:00 EDT, Height/Length Dosing, 84.1, kg, 02/02/24 10:29:00 EDT, Weight Dosing sodium chloride, See Instructions, TAKE 1 TABLET BY MOUTH TWICE DAY, # 90 tab(s), Refills(s) 2, Pharmacy: [facility]/pharmacy #[id number], 180.5, cm, 03/20/24 15:05:00 [...] Abuse, 03/06 (more content not included)... Normal [facility] Comment on above: Result Comment: Elec tronically Signed By: Adam COHN, Kylah Lopez.claudio\Date and Time Signed: 05/03/24 09:15 EDT Patient [...] night-lights. ? Place frequently used items in szpt-oj-syuyv places. Lower the shelves around your home [...] the way. ? Do not use floor tanzanian or wax that makes floors slippery. If [...] Control and Prevention, STEADI: www.cdc.gov ? National Powell on Aging: www.kieran.nih.gov Contact a health care [...] health ca (more content not included)... Normal [facility] Patient Education Urology Erectile Dysfunction Erectile dysfunction [...] these instructions at home: Medicines ? Take oyyg-cge-jexaqdg and prescription medicines only as told by [...] include cig (more content not included)... Normal [facility] Screenson 05-03-2024 Screens [id number] 2#1.00TIFF Normal [facility] CBC w/ Auto Diffon 4 Basophils/100 WBC (Bld) 0.9 % Normal 0.0-2.0 [facility] Comment on above: Performed By: #### 2 [id number] #### [facility] [address] [place] [address] Basophils/Leukocytes Auto (Bld) [Pure # fraction] 0.0 E9/L Normal 0.0-0.2 [facility] Comment on above: Performed By: #### 2 497001 #### [facility] [address] [place] [address] Eosinophils (Bld) [#/Vol] 0.1 E9/L Normal 0.0-0.5 [facility] Comment on above: Performed By: #### 2 847211 #### [facility] [address] [place] [address] Eosinophils/100 WBC (Bld) 2.4 % Normal 0.0-8.0 [facility] Comment on above: Performed By: #### 2 859563 #### [facility] [address] [place] [address] Erythrocyte distribution width (RBC) [Ratio] 14.4 % High 10.9-14.2 [facility] Comment on above: Performed By: #### 2 287135 #### [facility] [address] [place] [address] Hematocrit (Bld) [Volume fraction] 42.2 % Normal 37.7-49.0 [facility] Comment on above: Performed By: #### 2 697349 #### [facility] [address] [place] [address] Hemoglobin (Bld) [Mass/Vol] 14.0 g/dL Normal 13.5-17.5 [facility] Comment on above: Performed By: #### 2 058157 #### [facility] [address] [place] [address] Lymphocytes (Bld) [#/Vol] 1.4 E9/L Normal 1.0-4.0 [facility] Comment on above: Performed By: #### 2 882867 #### [facility] [address] [place] [address] Lymphocytes/100 WBC (Bld) 34.0 % Normal 14.0-50.0 [facility] Comment on above: Performed By: #### 2 968287 #### [facility] [address] [place] [address] MCH (RBC) [Entitic mass] 30.8 pg Normal 27.0-34.0 [facility] Comment on above: Performed By: #### 2 145783 #### [facility] [address] [place] [address] MCHC (RBC) [Mass/Vol] 33.1 g/dL Normal 31.4-36.0 [facility] Comment on above: Performed By: #### 2 378592 #### [facility] [address] [place] [address] MCV (RBC) [Entitic vol] 92.9 fL Normal 80.0-100.0 [facility] Comment on above: Performed By: #### 2 907564 #### [facility] [address] [place] [address] Monocytes (Bld) [#/Vol] 0.4 E9/L Normal 0.2-1.0 [facility] Comment on above: Performed By: #### 2 337448 #### [facility] [address] [place] [address] Neutrophils (Bld) [#/Vol] 2.2 E9/L Normal 2.0-7.5 [facility] Comment on above: Performed By: #### 2 084813 #### [facility] [address] [place] [address] Neutrophils/100 WBC (Bld) 53.4 % Normal 36.0-75.0 [facility] Comment on above: Performed By: #### 2 857494 #### [facility] [address] [place] [address] Platelet 166.0 E9/L Normal 150.0-500.0 [facility] Comment on above: Performed By: #### 2 801407 #### [facility] [address] [place] [address] Platelet mean volume (Bld) [Entitic vol] 9.8 fL Normal 6.4-10.8 [facility] Comment on above: Performed By: #### 2 887810 #### [facility] [address] [place] [address] RBC (Bld) [#/Vol] 4.5 E12/L Normal 4.3-5.9 [facility] Comment on above: Performed By: #### 2 156158 #### [facility] [address] [place] [address] WBC corrected for nucl RBC Auto (Bld) [#/Vol] 4.2 E9/L Normal 4.0-11.0 [facility] Comment on above: Performed By: #### 2 074731 #### [facility] [address] [place] [address] CHEMISTRYOrdered By: SYSTEM SYSTEM on 05-01-2024 Albumin [...] for this result was chemiluminescence using [employer]'s Access Hybritech PSA reagent. Protein [Mass/Vol] 7.1 [...] 05-01-2024 Albumin [Mass/Vol] 4.2 g/dL Normal 3.3-5.0 [facility] Comment on above: Performed By: #### 2 030603 #### [facility] [address] [place] [address] Albumin/Globulin (S) [Mass conc ratio] 1.4 Normal 1.1-2.2 [facility] Comment on above: Performed By: #### 2 373314 #### [facility] [address] [place] [address] ALP [Catalytic activity/Vol] 83 Int._Unit/L Normal 21-98 [facility] Comment on above: Performed By: #### 2 229029 #### [facility] [address] [place] [address] ALT No additional P-5'-P [Catalytic activity/Vol] 14 Int._Unit/L Normal 6-46 [facility] Comment on above: Performed By: #### 2 357674 #### [facility] [address] [place] [address] Anion gap [Moles/Vol] 10 mmol/L Normal 6-16 [facility] Comment on above: Performed By: #### 2 399031 #### [facility] [address] [place] [address] AST [Catalytic activity/Vol] 22 Int._Unit/L Normal 5-43 [facility] Comment on above: Performed By: #### 2 951721 #### [facility] [address] [place] [address] Bilirubin [Mass/Vol] 0.9 mg/dL Normal 0.0-1.1 [facility] Comment on above: Performed By: #### 2 736990 #### [facility] [address] [place] [address] Calcium [Mass/Vol] 9.5 mg/dL Normal 8.9-11.1 [facility] Comment on above: Performed By: #### 2 119709 #### [facility] [address] [place] [address] Chloride [Moles/Vol] 103 mmol/L Normal 101-111 [facility] Comment on above: Performed By: #### 2 528211 #### [facility] [address] [place] [address] CO2 [Moles/Vol] 29 mmol/L Normal 21-31 [facility] Comment on above: Performed By: #### 2 482013 #### [facility] [address] [place] [address] Creatinine [Mass/Vol] 1.1 mg/dL Normal 0.5-1.3 [facility] Comment on above: Performed By: #### 2 137084 #### [facility] [address] [place] [address] Globulin (S) [Mass/Vol] 2.9 g/dL Normal 1.4-4.0 [facility] Comment on above: Performed By: #### 2 808881 #### [facility] [address] [place] [address] Glucose [Mass/Vol] 104 mg/dL Normal 55-199 [facility] Comment on above: Performed By: #### 2 888781 #### [facility] [address] [place] [address] Potassium [Moles/Vol] 5.2 mmol/L Normal 3.5-5.3 [facility] Comment on above: Performed By: #### 2 632880 #### [facility] [address] [place] [address] Protein [Mass/Vol] 7.1 g/dL Normal 6.0-7.8 [facility] Comment on above: Performed By: #### 2 840848 #### [facility] [address] [place] [address] Sodium [Moles/Vol] 137 mmol/L Normal 135-145 [facility] Comment on above: Performed By: #### 2 173568 #### [facility] [address] [place] [address] Urea nitrogen [Mass/Vol] 15 mg/dL Normal 5-21 [facility] Comment on above: Performed By: #### 2 414825 #### [facility] [address] [place] [address] Urea nitrogen/Creatinine [Mass ratio] 14 No Units Normal 10-20 [facility] Comment on above: Performed By: #### 2 500129 #### [facility] [address] [place] [address] Consent for Treatmenton 04-14 Consent for Treatment [id number] 72#1.00TIFF Normal [facility] HEMATOLOGYOrdered By: SYSTEM SYSTEM on 05-01-2024 Basophils/100 [...] - 11.0 E9/L Remisol Heme Lab Reportson 06-18-2024 Lab Reports [id number] E#1.00TIFF Normal [facility] Lipid Panelon 05-01-2024 Cholesterol [Mass/Vol] 168 mg/dL Normal 120-200 [facility] Comment on above: Performed By: #### 2 145415 #### [facility] [address] [place] [address] Cholesterol in HDL [Mass/Vol] 54 mg/dL Invalid Interpretation Code [facility] Comment on above: Result Comment: '>= 60 LOW RISK' '<= 40 HIGH RISK' Performed By: #### 2 295580 #### [facility] [address] [place] [address] Cholesterol in LDL [Mass/Vol] 99 mg/dL Normal <=129 [facility] Comment on above: Performed By: #### 2 834192 #### [facility] [address] [place] [address] Cholesterol in VLDL [Mass/Vol] 16 mg/dL Normal 7-40 [facility] Comment on above: Performed By: #### 2 004932 #### [facility] [address] [place] [address] Triglyceride [Mass/Vol] 78 mg/dL Normal <=149 [facility] Comment on above: Performed By: #### 2 806053 #### [facility] [address] [place] [address] Nurse Consultation Noteon Nurse Consultation Note Reason [...] influenza virus vaccine, inactivated 08/02/2014 Recorded Normal [facility] PSA Screen, Totalon 05-01-20 24 Prostate specific Ag [Mass/Vol] 1.3 ng/mL Normal 0.1-3.5 [facility] Comment on above: Result Comment: The concentration of PSA determined by different manufacturers can vary due to differences in assay methods and reagent specificity. Values obtained from different assay methods cannot be used interchangeably. The methodology used for this result was chemiluminescence using [employer]'s Access Hybritech PSA reagent. Performed By: #### 1 [id number] #### [facility] [address] [place] [address] eGFRon 05-01-2024 eGFR 67 mL/min/1.73 m2 Normal >=59 [facility] Comment on above: Order Comment: Order added by Discern Expert. Performed By: #### 1 [id number] ####[facility] [address] [place] [address] Physician Orderon 04-23-2024 Physician Order [id number] 859#1.00TIFF Normal [facility] Consent for Treatmenton Consent for Treatment [id number] #1.00TIFF Normal [facility] Heart and Vascular Office/Cl inic Noteon 04-20-2024 [...] or orthopnea. 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 with senior radiation therapist, location unknown, however, has not been followed [...] Recorded influenza virus vaccine, inactivated 08/02/2014 Recorded [facility] Comment on above: Result Comment: Elec tronically Signed By: Ericka COHN, Kashif Craig\.br\Date and Time Signed: 04/20/24 13:49 EDT Insurance Correspondenceon 0 04-20-2024 Insurance Correspondence [id number] 559#1.00TIFF [facility] Consultation Noteon 04-10-20 Consultation Note [id number] 1#1.00TIFF [facility] Postoperative Documentson Postoperative Documents [id number] 811#1.00TIFF [facility] Consultation Noteon 03-29-20 Consultation Note [id number] B4#1.00TIFF [facility] Lab Reportson 03-29-2024 Lab Reports [id number] DF#1.00TIFF [facility] RAD - MISCon 03-29-2024 RAD - MISC [id number] 19#1.00TIFF [facility] IntraOperative Documentson 0 03-28-2024 IntraOperative Documents [id number] 516#1.00TIFF Normal [facility] Consent for Anesthesiaon Consent for Anesthesia [id number] 28#1.00TIFF Normal [facility] Discharge Instructionson Discharge Instructions [id number] 47#1.00TIFF Normal [facility] IntraOperative Documentson 0 03-27-2024 IntraOperative Documents [id number] 36#1.00TIFF Normal [facility] Main OR Intraoperative Recor don 03-27-2024 Main OR Intraoperative Record IntraOp Document Type FT Summary Primary Physician: Axel Hernández DO Finalized Date/Time: 03/27/24 09:11:12 Pt. Name: DARIEL ZABALA/Sex: 1940 Male Med Rec #: [id number] Physician: Axel Hernández DO Financial #: [id number] Pt. Type: A Room/Bed: [facility] Admit/Disch: 03/26/24 09:11:44 - 03/26/24 [...] T Role Performed Anesthesiologist Surgeon - Primary Community Service Worker - Primary Shoemaker Custom Time In 03/26/24 12:20:00 03/26/24 12:20:00 03/26/24 12:20:00 Time Out 03/26/24 12:53:00 03/26/24 12:53:00 03/26/24 12:53:00 Procedure FINGER TRIGGER FINGER TRIGGER FINGER TRIGGER RELEASE(Right) RELEASE(Right) RELEASE(Right) Comments DR CARDONA SUPERVISING Last Modified By: Ambrocio Borges Terry T Sweene, Terry T 03/26/24 13:03:32 03/26/24 13:03:32 03/26/24 13:03:32 Entry 4 Entry 5 Entry 6 Case Attendee Shola STEEL, Marium Guidry RN, Rich Nickerson Role Performed PEST CONTROL CHEMICAL TECHNICIAN/SA Scrub - Primary Staff - Other Time In 03/26/24 12:30:00 03/26/24 12:20:00 03/26/24 12:20:00 Time Out 03/26/24 12:53:00 03/26/24 12:53:00 03/26/24 12:33:00 Procedure FINGER TRIGGER FINGER TRIGGER FINGER TRIGGER RELEASE(Right) RELEASE(Right) RELEASE(Right) Comments ROOM ASSIST Last Modified By: Ambrocio Borgse Terry T Sweene, Terry T 03/26/24 13:03:32 [...] Yes Time Out Davie Driver, Given Participants Catherine ELLIS, Jony Lobato Terry T, Wilhelm CST, Nidhi Gautam Madison [...] and tissue Entry 1 Skin Integrity Intact, Peak Place, Warm, and Skin Abnormality No Dry Outcomes Met? Yes Last Modified By: Ambrocio Borges 03/26/24 12:36:42 Post-Care Text: The patient is free from signs and symptoms of injury caused by extraneous objects Patient Positioning FT Pre-Care Text: Identifies physical alterations that require additional precautions for procedure-specific positioning, verifies presence of prosthetics or correctiv (more content not included)... Normal [facility] Operative Reporton Operative Report SURGERY DATE: 03/26/2024 SIENE MAKER: Chica Jolley C.F.A. PREOPERATIVE DIAGNOSIS: Right little [...] patient's condition satisfactory Deanna Weller Dictated: 03/26/2024 [id number] Transcribed: 03/26/2024 cc:Kylah Medina M.D. [facility] Comment on above: Result Comment: Elec tronically Signed By: Axel Hernández DO T\.br\Date and Time Signed: 03/27/24 07:40 EDT Preoperative Documentson Preoperative Documents [id number] 14#1.00TIFF [facility] Progress Note-Physicianon Progress Note-Physician Patient: DARIEL ZABALA [...] 2 causing vascular disease / SNOMED CT 282878162 / Confirmed Trigger finger / SNOMED CT 951561222 / Confirmed Syncope / SNOMED CT 618653791 / Confirmed Body mass index (BMI) of 25.0-25.9 in adult / SNOMED CT 9631375941 / Confirmed Osteoarthritis / SNOMED CT 7980569439 / Confirmed Encounter for surveillance of abnormal nevi / SNOMED CT 3447438366 / Confirmed Laceration of head / SNOMED CT 6586615535 / Confirmed Hyponatremia / SNOMED CT 754386686 / Confirmed Hyperlipidemia / SNOMED CT 61283578 / Confirmed Fall at home / SNOMED CT 97670357 / Confirmed ED (erectile dysfunction) / SNOMED CT 6483048164 / Confirmed Carpal tunnel syndrome, left / SNOMED CT 27180744 / Confirmed Afib / SNOMED CT 15210765 / Confirmed ASCVD (arteriosclerotic cardiovascular disease) / SNOMED CT 738997607 / Confirmed Histories Procedure history: Surgery, neck X 2 ([id number]). Carpal tunnel release ([id number]). Social History Social & Psychosocial Habits Alcohol [...] adequate air exchange. Cardiovascular: Regular rhythm. Plan [place] [employer]esthesi[employer] (ASA) physical status classification: Class III. Anesthetic Preoperative Plan: Anesthesia General. [facility] Comment on above: Result Comment: [...] meets criteria ( To home ). Normal [facility] Comment on above: Result Comment: Elec tronically Signed By: Brendan Gonzalez DO, Chau Schumacher\.br\Date and Time Signed: 03/27/24 12:32 EDT CHEMISTRYOrdered By: Lab ROP User on 03-26-2024 Glucose [Mass/Vol] 92 mg/dL Normal 55 - 99 mg/dL [facility] C POC Subsection Comment on above: Result Comment: Justine garcia RN/MD POC Device SN [id number] [address] [facility] POC Subsection POC User ID [id number] [address] [facility] POC Subsection POC Username LORNA WILSON Invalid Interpretation Code [facility] POC Subsection COAGULATIONOrdered By: Toshia Tadeo on 03-26-2024 aPTT Coag (PPP) [Time] 35.8 s Normal 25.1 - 36.5 second(s) [facility] Auto Coag Comment on above: Interpretive Data: P pierometer 15 days - 4 weeks 1 - [...] the same coagulation reagent and instrumentation as [facility]. Currently there are no coagulation studies available worldwide for children to 14 days, and no normal ranges. Heparin therapeutic range (represented by Anti-Factor Xa activity of 0.2 - 0.4 U/mL) corresponds to PTT of 56.6 - 109.0 sec. PT Coag (PPP) [Time] 13.4 s High 9.4 - 1 2.5 second(s) [facility] Auto Coag Comment on above: Interpretive Data: [...] the same coagulation reagent and instrumentation as [facility]. Currently there are no coagulation studies available worldwide for children to 14 days, and no normal ranges. Capillary Glucose POCon 03-14 Glucose [Mass/Vol] 92 mg/dL Normal 55-99 [facility] Comment on above: Result Comment: Justine garcia RN/ Performed By: #### 2 [id number] #### [facility] [address] [place] [address] Consent for Procedure/Surger yon 03-26-2024 Consent for Procedure/Surgery [id number] 421#1.00TIFF Normal [facility] Consent for Treatmenton 03-14 Consent for Treatment [id number] E9#1.00TIFF Normal [facility] Discharge Instructionson Discharge Instructions DARIEL ZABALA :1940 Visit Date:03/26/2024 Inpatient Discharge Instructions Your Care Team Admitting Physician - Axel Hernández DO Referring Physician - Axel Hernández DO Reason for Your Visit RIGHT LITTLE FINGER TRIGGER FINGER Your Diagnosis Trigger finger, right little finger This Is Your Medications List Turmeric (Turmeric 500 mg oral capsule) acetaminophen-hydro codone ([place] 325 mg-5 mg oral tablet) atenolol (atenolol [...] AM EDT Comments: Keep scheduled appointment Where: [address] [place] [address]- Business (1) Medications What How Much When Why Instructions Next Dose Unchanged acetaminophen-hydro codone ([place] 325 mg-5 mg oral tablet) See instructions Trigger finger, right little finger 1 tab(s) Oral q4hr PRN Pain. Duration 7 days. Pickup at [facility]/pharmacy #61 Unchanged atenolol (atenolol 25 mg Tab) 1 [...] Tablets By Mouth Every day Pharmacy Information [facility]/pharmacy #[id number]: [address], [place] [id number] [phone] Problems Ongoing - Any problem that you [...] and med (more content not included)... Normal [facility] Comment on above: Result Comment: Elec tronically Signed By: Sloan KHAN, Rudy Pereira\.br\Date and Time Signed: 03/26/24 14:03 EDT H&P Updateon 03-26-2024 H&P Update [id number] 633#1.00TIFF Normal [facility] Main OR PACU I Recordon 03-14 Main OR PACU I Record PACU Phase I Document Type FT Summary Primary Physician: Axel Hernández DO Finalized Date/Time: 03/26/24 13:38:42 Pt. Name: DARIEL ZABALA/Sex: 1940 Male Med Rec #: [id number] Physician: Axel Hernández DO Financial #: [id number] Pt. Type: A Room/Bed: 07/15 Admit/Disch: 03/26/24 09:11:44 - Institution: Case Times [...] By: Vicki Sethi RN 03/26/24 13:38 Normal [facility] Main OR PACU II Recordon Main OR PACU II Record PACU Phase II Document Type FT Summary Primary Physician: Axel Hernández DO Finalized Date/Time: 03/26/24 16:11:30 Pt. Name: DARIEL ZABALA/Sex: 1940 Male Med Rec #: [id number] Physician: Axel Hernández DO Financial #: [id number] Pt. Type: A Room/Bed: [facility] Admit/Disch: 03/26/24 09:11:44 - 03/26/24 [...] By: Rudy Lisa RN 03/26/24 16:11 Normal [facility] Main OR Preoperative Recordo n 03-26-2024 Main OR Preoperative Record PreOp Document Type FT Summary Primary Physician: Axel Hernández DO Finalized Date/Time: 03/26/24 13:07:41 Pt. Name: DARIEL ZABALA/Sex: 1940 Male Med Rec #: [id number] Physician: Axel Hrenández DO Financial #: [id number] Pt. Type: A Room/Bed: Admit/Disch: 03/26/24 09:11:44 [...] 03/26/24 13:05 Ambrocio Borges 03/26/24 13:07 Normal [facility] Monitor Recordon 03-26-2024 Monitor Record [id number] 220#1.00TIFF Normal [facility] Monitor Record [id number] 270#1.00TIFF Normal [facility] PT & PTTon 03-26-2024 aPTT Coag (PPP) [Time] 35.8 second(s) Normal 25.1-36.5 [facility] Comment on above: Result Comment: Para meter [...] the same coagulation reagent and instrumentation as [facility]. Currently there are no coagulation studies available worldwide for children to 14 days, and no normal ranges. Heparin therapeutic range (represented by Anti-Factor Xa activity of 0.2 - 0.4 U/mL) corresponds to PTT of 56.6 - 109.0 sec. Performed By: #### 1 [id number] ####[address] [place] [address] PT Coag (PPP) [Time] 13.4 second(s) High 9.4-12.5 [facility] Comment on above: Result Comment: 15 d [...] the same coagulation reagent and instrumentation as [facility]. Currently there are no coagulation studies available worldwide for children to 14 days, and no normal ranges. Performed By: #### 1 [id number] ####[address] [address] PT & PTTOrdered By: Starr linda on 03-26-2024 INR Coag (PPP) [Relative time] 1.19 {INR} Invalid Interpretation Code [facility] Auto Coag Comment on above: Interpretive Data: [...] 3.0 ? 4.5 Performed By: #### 1 [id number] ####[address] [address] Patient Education - Texton 0 03-26-2024 Patient [...] ? Doing activities that require a strong tool repairer bench. ? Having rheumatoid arthritis, gout, or diabetes. [...] on your hand. General instructions ? Take vkbo-ydr-cusfkdt and prescription medicines only as told by [...] care provide (more content not included)... Normal [facility] Ambulatory Visit Summaryon 0 03-20-2024 Ambulatory Visit [...] Appointments Tuesday 12:30 PM EDT With: Where: [facility] Surgical Services Tuesday 9:00 AM EDT With: Where: [facility] Invalid Interpretation Code [address] [place] [address]- \.br\ 2023 9:00 AM EDT \.br\ With: Kylah Medina MD\.br\ Where: [facility] Consent for Procedure/Surger yon 03-20-2024 Consent for Procedure/Surgery [id number] 969#1.00TIFF Normal [facility] Family Medicine Office/Clini c Noteon 03-20-2024 Family Medicine Office/Clinic Note HPI Staff Dariel is an 83 year old male presenting for ER follow up needs his andre removed ER followup: Hospital: [facility] Visit date: 03/10/24 Symptoms the patient presented [...] - Hold coumadin tomorow for surgery Ordered: [facility] Internal Ambulatory Referral 2. Fall at home (W19.XXXA: Unspecified fall, initial encounter) - 2/2 syncope - Nausea before syncope - Will refer to Cardio for evaluation of continues syncope Ordered: [facility] Internal Ambulatory Referral 3. Laceration of head (S01.91XA: Laceration without foreign body of unspecified part of head, initial encounter) - Stables removed - no issues. Ordered: [facility] Internal Ambulatory Referral 4. Syncope (R55: Syncope and collapse) - Will send to Cardio for further work up Ordered: [facility] Internal Ambulatory Referral 5. Hyponatremia (E87.1: Hypo-osmolality and hyponatremia) - Recheck BMP today - Follow up with Nephrology Ordered: [facility] Internal Ambulatory Referral 6. Over weight [...] influenza virus vaccine, inactivated 08/02/2014 Recorded Normal [facility] Comment on above: Result Comment: Elec tronically Signed By: Adam COHN, Kylah Cole\.br\Date and Time Signed: 03/20/24 15:31 EDT Inpatient Patient Summaryon 03-20-2024 Inpatient Patient Summary [address] [facility] Clinical Discharge Instructions PERSON INFORMATION Name: DARIEL ZABALA PHYSICIANS Admitting Physician: Axel Hernández DO Attending Physician: Axel Hernández DO PCP: Kylah Medina MD Discharge Diagnosis: Trigger finger, right little finger Comment: PATIENT EDUCATION INFORMATION Instructions: Trigger Finger Medication Leaflets: Follow up: With: Address: When: Axel Hernández [address] [place] [address] [facility] (1) Comments: Keep scheduled appointment Type Location Start [facility] Surgical Services 03/26/2024 12:30 PM 03/26/2024 12:45 PM Confirmed FM Lab Draw [facility] 05/01/2024 9:00 AM 05/01/2024 9:20 AM Confirmed FM Medicare Wellness Subsequent [facility] 05/03/2024 8:00 AM 05/03/2024 9:00 AM Confirmed FM Open [facility] 05/03/2024 9:00 AM 05/03/2024 9:15 AM Confirmed [...] mg oral capsule) ubiquinone (CoQ10) Comment: Normal [facility] Outpatient Surgery Discharge Instructionon 03-20-2024 Outpatient Surgery Discharge Instruction [place] [id number] Patient Discharge Instructions PERSON INFORMATION Name: DARIEL [...] Follow up: With: Address: When: Axel Hernández [address] [place] [address] Business (1) Comments: Keep scheduled appointment Type Location Start [facility] Surgical Services 03/26/2024 12:30 PM 03/26/2024 12:45 PM Confirmed FM Lab Draw [facility] 05/01/2024 9:00 AM 05/01/2024 9:20 AM Confirmed [facility] Wellness [facility] 8:00 AM 05/03/2024 9:00 AM Confirmed FM Open [facility] 05/03/2024 9:00 AM 05/03/2024 9:15 AM Confirmed [...] to serve you. Thank you for choosing [facility] HERE ARE THE MEDICATION CHANGES THAT [...] finger ca (more content not included)... Normal [facility] ECG 12-Leadon 03-12-2024 ECG 12-Lead [id number] EC#1.00TIFF Normal [facility] ED Note-Physicianon 03-12-20 24 ED Note-Physician [id number] A7#1.00TIFF Normal [facility] RAD - CT Reporton 03-12-20[address] - [address] Report [id number] 20#1.00TIFF Normal [facility] RAD - CT Report [id number] A4#1.00TIFF Normal [facility] RAD - MISCon 03-12-2024 RAD - MISC [id number] 55#1.00TIFF Normal [facility] Ambulatory Visit Summaryon 0 03-08-2024 Ambulatory Visit [...] Appointments Tuesday 1:45 PM EDT With: Where: [facility] Surgical Services Tuesday 9:00 AM EDT With: Where: [facility] Invalid Interpretation Code [address] [place] [address]- \.br\ 2023 9:00 AM EDT \.br\ With: Kylah Medina MD\.br\ Where: [facility] Family Medicine Office/Clini c Noteon 03-08-2024 Family Medicine Office/Clinic Note HPI Staff Dariel is an 83 year old male presenting for surgical clearance Needs clearance and hold coumadin in writing and faxed to Dr Hernández at [phone] Note: he would really benefit for chronic care management if he qualifies ( he walks in here at least once a week with questions Date of surgery: March 26, 2024 Surgeon: Dr Hernández Hospital: [facility] Type of Surgery: rt [...] disorder) - Will send to Derm. Ordered: [facility] External Ambulatory Referral Follow-up [...] influenza virus vaccine, inactivated 08/02/2014 Recorded Normal [facility] Comment on above: Result Comment: Elec tronically Signed By: Adam COHN, Kylah Lopez.br\Date and Time Signed: 03/08/24 13:31 EDT Patient Educationon 04-25-20 24 Patient Education Nutrition BMI for Adults What [...] numbers. This can be done either in [place] ([place] or metric measurements. Note that charts and online BMI calculators are available to help you find your BMI quickly and easily without having to do these calculations yourself. To calculate your BMI in [place] ([place] measurements: 1. Measure your weight in [...] for Disease Control and Prevention: www.cdc.gov ? [place] Heart Association: www.heart.org ? National Heart, Lung, and Blood [place]: www.nhlbi.nih.gov Summary ? Body mass index (BMI) is a number that is calculated from a person's weight and height. ? BMI may help estimate how much of a person's weight is composed of fat. BMI can help identify those who may be at higher risk for certain medical problems. ? BMI can be measured using [place] measurements or metric measurements. ? BMI charts are used to identify whether you are underweight, normal weight, overweight, or obese. This information is not intended to replace advice given to you by your health care provider. Make sure you discuss any questions you have with your health care provider. Document Revised: 07/23/2020 Document Reviewed: 05/30/2020 [employer] Patient Education ? 2022 [employer] [facility] Physician Referralon 03-08-2 024 Physician Referral [id number] 859#1.00TIFF [facility] XR Chest 2 Viewson XR [...] mGy = na DAP = na Normal [facility] BMPon 03-06-2024 Anion gap [Moles/Vol] 10 mmol/L Normal 6-16 [facility] Comment on above: Performed By: #### 1 [id number], 7298051, 9488997 ####[facility] [address] [place] [address] Calcium [Mass/Vol] 9.1 mg/dL Normal 8.9-11.1 [facility] Comment on above: Performed By: #### 1 7294161, 9781343, 9234331 ####[facility] [address] [place] [address] Chloride [Moles/Vol] 102 mmol/L Normal 101-111 [facility] Comment on above: Performed By: #### 1 9921863, 6367141, 5322108 ####[facility] [address] [place] [address] CO2 [Moles/Vol] 28 mmol/L Normal 21-31 [facility] Comment on above: Performed By: #### 1 0902121, 8635177, 3588244 ####[facility] [address] [place] [address] Creatinine [Mass/Vol] 1.0 mg/dL Normal 0.5-1.3 [facility] Comment on above: Performed By: #### 1 4603833, 8001366, 2833855 ####[facility] [address] [place] [address] Glucose [Mass/Vol] 98 mg/dL Normal 55-199 [facility] Comment on above: Performed By: #### 1 5380611, 3729284, 9965163 ####[address] [address] Potassium [Moles/Vol] 4.3 mmol/L Normal 3.5-5.3 [facility] Comment on above: Performed By: #### 1 6986375, 0049149, 1711735 ####[address] [address] Sodium [Moles/Vol] 136 mmol/L Normal 135-145 [facility] Comment on above: Performed By: #### 1 3374425, 7681515, 9363076 ####[facility] [address] [place] [address] Urea nitrogen [Mass/Vol] 14 mg/dL Normal 5-21 [facility] Comment on above: Performed By: #### 1 4768493, 7551817, 3876377 ####[facility] [address] [place] [address] Urea nitrogen/Creatinine [Mass ratio] 14 No Units Normal 10-20 [facility] Comment on above: Performed By: #### 1 9617255, 2073900, 3929936 ####[facility] [address] [place] [address] CBC w/ Auto Diffon 4 Basophils/100 WBC (Bld) 1.0 % Normal 0.0-2.0 [facility] Comment on above: Performed By: #### 1 7860014, 3695048, 8957467 ####[facility] [address] [place] [address] Basophils/Leukocytes Auto (Bld) [Pure # fraction] 0.0 E9/L Normal 0.0-0.2 [facility] Comment on above: Performed By: #### 1 8505775, 9673200, 0299951 ####[address] [address] Eosinophils (Bld) [#/Vol] 0.2 E9/L Normal 0.0-0.5 [facility] Comment on above: Performed By: #### 1 1793821, 6763123, 2979262 ####[address] [address] Eosinophils/100 WBC (Bld) 3.9 % Normal 0.0-8.0 [facility] Comment on above: Performed By: #### 1 0503903, 2163584, 5872476 ####[address] [address] Erythrocyte distribution width (RBC) [Ratio] 14.0 % Normal 10.9-14.2 [facility] Comment on above: Performed By: #### 1 9154531, 4963464, 0981752 ####[address] [address] Hematocrit (Bld) [Volume fraction] 39.1 % Normal 37.7-49.0 [facility] Comment on above: Performed By: #### 1 6237957, 2667268, 0889654 ####[address] [address] Hemoglobin (Bld) [Mass/Vol] 13.0 g/dL Low 13.5-17.5 [facility] Comment on above: Performed By: #### 1 2139583, 6295992, 8637256 ####[address] [address] Lymphocytes (Bld) [#/Vol] 1.4 E9/L Normal 1.0-4.0 [facility] Comment on above: Performed By: #### 1 1148667, 7108759, 5837007 ####[address] [place] [address] Lymphocytes/100 WBC (Bld) 31.0 % Normal 14.0-50.0 [facility] Comment on above: Performed By: #### 1 6337014, 7408973, 1908924 ####[address] [address] MCH (RBC) [Entitic mass] 30.3 pg Normal 27.0-34.0 [facility] Comment on above: Performed By: #### 1 3053147, 5951506, 7160936 ####[address] [address] MCHC (RBC) [Mass/Vol] 33.3 g/dL Normal 31.4-36.0 [facility] Comment on above: Performed By: #### 1 2670140, 1558997, 0484063 ####[address] [address] MCV (RBC) [Entitic vol] 91.2 fL Normal 80.0-100.0 [facility] Comment on above: Performed By: #### 1 8035176, 9680276, 1670188 ####[address] [address] Monocytes (Bld) [#/Vol] 0.4 E9/L Normal 0.2-1.0 [facility] Comment on above: Performed By: #### 1 8614524, 0165273, 7256498 ####[address] [address] Neutrophils (Bld) [#/Vol] 2.5 E9/L Normal 2.0-7.5 [facility] Comment on above: Performed By: #### 1 8178544, 5849999, 7128611 ####[address] [address] Neutrophils/100 WBC (Bld) 55.3 % Normal 36.0-75.0 [facility] Comment on above: Performed By: #### 1 4683347, 4629678, 9435731 ####[facility] [address] [place] [address] Platelet 157.0 E9/L Normal 150.0-500.0 [facility] Comment on above: Performed By: #### 1 2649542, 3751695, 9865702 ####[facility] [address] [place] [address] Platelet mean volume (Bld) [Entitic vol] 9.7 fL Normal 6.4-10.8 [facility] Comment on above: Performed By: #### 1 3892023, 2951002, 2159324 ####[address] [place] [address] RBC (Bld) [#/Vol] 4.3 E12/L Normal 4.3-5.9 [facility] Comment on above: Performed By: #### 1 1189551, 9428486, 2021848 ####[facility] [address] [place] [address] WBC corrected for nucl RBC Auto (Bld) [#/Vol] 4.6 E9/L Normal 4.0-11.0 [facility] Comment on above: Performed By: #### 1 6688822, 1410175, 6580244 ####[facility] [address] [place] [address] CHEMISTRYOrdered By: SYSTEM SYSTEM on 03-06-2024 Anion [...] for Treatmenton 02-13 Consent for Treatment [id number] B4#1.00TIFF Normal [facility] HEMATOLOGYOrdered By: SYSTEM SYSTEM on 03-06-2024 Basophils/100 [...] 03-06-2024 eGFR 75 mL/min/1.73 m2 Normal >=59 [facility] Comment on above: Order Comment: Order added by Discern Expert. Performed By: #### 1 9913005, 7252654, 1384172 ####[facility] [address] [place] [address] Consultation Noteon 03-01-20 Consultation Note [id number] 5E#1.00TIFF Normal [facility] Lab Reportson 02-27-2024 Lab Reports [id number] E7#1.00TIFF Normal [facility] Family Medicine Office/Clini c Noteon 02-07-2024 Family Medicine Office/Clinic Note HPI Staff Dariel is an 83 year old male presenting for 2 month follow up DM Needs refills of levothyroxine and glimiperide to [facility] Do you have any of the following symptoms? Foot Exam: none Eye Exam: due Last A1C: Hgb A1C %: 5.6 % (12/01/23 14:31:00) Statin: pravastatin 40mg questions/concerns: saw kidney specialist (Rashad) about 3 weeks ago ( no report in file) was told to stop the omeprazole and meloxicam and cut salt tablets from tid to bid. Also says [facility] sent him a letter and said you [...] his left side. The patient saw his mri ct tech on 12/28/2023. 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 Substitutions may have occurred due to the inherent limitations of voice recognition and artificial intelligence software. ATTESTATION: Documentation services were performed after patient or guardian consented to allow [employer] to record this visit. MELISSA medical support specialist and provider reviewed before signing. [...] in life (more content not included)... Normal [facility] Comment on above: Result Comment: Elec tronically [...] Medina MD. This Is Your Medications List atenolol (atenolol [...] With: Where: [facility] Invalid Interpretation Code [address] [place] [address]- \.br\ 2023 9:00 AM EDT \.br\ With: Adam COHN, Kylah Cole\.br\ Where: [facility] Physician Referralon 024 Physician Referral [id number] 6#1.00TIFF Normal [facility] Lab Reportson 01-05-2024 Lab Reports [id number] C1#1.00TIFF [facility] Transfer Inon 12-08-2023 Transfer In [id number] F9#1.00TIFF Normal [facility] Auth for Release of Medical Recordson 12-06-2023 Auth for Release of Medical Records [id number] E#1.00TIFF [facility] Family Medicine Office/Clini c Noteon 12-02-2023 Family Medicine Office/Clinic Note HPI Staff Dariel is an 83 year old male presenting to [facility] care Establish Care: History: a fib, DM [...] records from Dr. Jada Rene. Prior to snf, he worked at a [employer] and [employer] for 4 days a week. From Tuesday to Tuesday, he runs a [employer]. 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 Substitutions may have occurred due to the inherent limitations of voice recognition and artificial intelligence software. Documentation services were performed after patient or guardian consented to allow [employer] to record this visit. MELISSA medical support specialist and provider reviewed before signing. [...] Oral, Horace (more content not included)... Normal [facility] Comment on above: Result Comment: Elec tronically Signed By: Kylah Medina MD\.br\Date and Time Signed: 12/02/23 08:22 EST\.br\Electronically Co-Signed By: Allie Conway\.br\Date and Time Co-Signed: 12/01/23 17:49 EST Lab Reportson 12-02-2023 Lab Reports [id number] 1#1.00TIFF Normal [facility] Ambulatory Visit Summaryon 0 12-01-2023 Ambulatory Visit [...] for choosing us for your care. Normal [facility] CBC w/ Auto Diffon 4 NRBC Man 0 Normal 0-0 [facility] Comment on above: Performed By: #### 2 918010, 4131003, 08489043, 2057876, [id number] #### [facility] [address] [place] [address] Basophil Absolute 0.0 E9/L Normal 0.0-0.2 [facility] Comment on above: Performed By: #### 2 256748, 4466505, 38957367, 1099115, 017502978 #### [facility] [address] [place] [address] Basophils/100 WBC (Bld) 0.4 % Normal 0.0-2.0 [facility] Comment on above: Performed By: #### 2 833137, 3818379, 15890180, 3806031, 640544451 #### [facility] [address] [place] [address] Eos Absolute 0.2 E9/L Normal 0.0-0.5 [facility] Comment on above: Performed By: #### 2 982819, 3483973, 60461927, 6377665, 289170928 #### [facility] [address] [place], [place] [address] Eosinophils/100 WBC (Bld) 2.9 % Normal 0.0-8.0 [facility] Comment on above: Performed By: #### 2 812704, 1322380, 92111860, 7881963, 522342106 #### [facility] [address] [place], [place] [address] Erythrocyte distribution width (RBC) [Ratio] 14.0 % Normal 10.9-14.2 [facility] Comment on above: Performed By: #### 2 727179, 9915502, 47454856, 9791157, 734776314 #### [facility] [address] [place], [place] [address] Hematocrit (Bld) [Volume fraction] 37.0 % Low 37.7-49.0 [facility] Comment on above: Performed By: #### 2 495657, 8469684, 91540597, 3327474, 377395937 #### [facility] [address] [place] [address] Hemoglobin (Bld) [Mass/Vol] 12.1 g/dL Low 13.5-17.5 [facility] Comment on above: Performed By: #### 2 842372, 5716245, 73361885, 3979549, 381254277 #### [facility] [address] [place] [address] Lymph Absolute 1.8 E9/L Normal 1.0-4.0 [facility] Comment on above: Performed By: #### 2 886314, 1578733, 04990196, 5817537, 822204052 #### [facility] [address] [place], [place] [address] Lymphocytes/100 WBC (Bld) 29.3 % Normal 14.0-50.0 [facility] Comment on above: Performed By: #### 2 309236, 2226838, 19566123, 6555835, 605527454 #### [facility] [address] [place] [address] MCH (RBC) [Entitic mass] 30.8 pg Normal 27.0-34.0 [facility] Comment on above: Performed By: #### 2 599611, 9617040, 20199800, 3172532, 506758021 #### [facility] [address] [place] [address] MCHC (RBC) [Mass/Vol] 32.8 g/dL Normal 31.4-36.0 [facility] Comment on above: Performed By: #### 2 426386, 0528405, 32110618, 5661812, 007347096 #### [facility] Laboratory [address] [place] [address] MCV (RBC) [Entitic vol] 93.8 fL Normal 80.0-100.0 [facility] Comment on above: Performed By: #### 2 503410, 7572186, 33991913, 0546200, [id number] #### [facility] Laboratory [address] [place] [address] [place] Absolute 0.5 E9/L Normal 0.2-1.0 [facility] Comment on above: Performed By: #### 2 790198, 3568505, 93286523, 7223210, 363045275 #### [facility] Laboratory [address] [place] [address] Monocytes/100 WBC (Bld) 7.9 % Normal 4.0-14.0 [facility] Comment on above: Performed By: #### 2 297209, 4943851, 55497061, 9322090, 104868311 #### [facility] Laboratory [address] [place] [address] Neutro Absolute 3.6 E9/L Normal 2.0-7.5 [facility] Comment on above: Performed By: #### 2 030694, 5817660, 04846605, 4528071, 854784752 #### [facility] Laboratory [address] [place] [address] Neutro Auto 59.5 % Normal 36.0-75.0 [facility] Comment on above: Performed By: #### 2 511046, 9363540, 38674352, 4357784, 966972875 #### [facility] Laboratory [address] [id number] Platelet 198.0 E9/L Normal 150.0-500.0 [facility] Comment on above: Performed By: #### 2 561244, 0057252, 78715585, 4140678, 462012045 #### [facility] Laboratory [address] [place] [address] Platelet mean volume (Bld) [Entitic vol] 9.5 fL Normal 6.4-10.8 [facility] Comment on above: Performed By: #### 2 718455, 1041830, 48502677, 5950278, 651421333 #### [facility] [address] [place] [address] RBC 3.9 E12/L Low 4.3-5.9 [facility] Comment on above: Performed By: #### 2 492255, 5696504, 03502183, 9920333, 652835083 #### [facility] [address] [place] [address] WBC 6.0 E9/L Normal 4.0-11.0 [facility] Comment on above: Performed By: #### 2 211211, 7526746, 48185759, 8366585, 876893800 #### [facility] Laboratory [address] [place] [address] CHEMISTRYOrdered By: Kate Sotomayor on 12-01-2023 U [...] (Bld) [Mass fraction] 5.6 % Normal <=5.9% [facility] ChemAutoSS CMPon 12-01-2023 Albumin [Mass/Vol] 3.9 g/dL Normal 3.3-5.0 [facility] Comment on above: Performed By: #### 2 070983, 5333743, 48370571, 8086438, 449150252 #### [facility] Laboratory [address] [place] [address] Albumin/Globulin [Mass ratio] 1.6 {ratio} Normal 1.1-2.2 [facility] Comment on above: Performed By: #### 2 001718, 9201826, 68309245, 1361331, 174096404 #### [facility] Laboratory [address] [place] [address] Alk Phos 75 Int._Unit/L Normal 21-98 [facility] Comment on above: Performed By: #### 2 885952, 7596085, 62097228, 8549653, 785774052 #### [facility] [address] [place] [address] ALT 12 Int._Unit/L Normal 6-46 [facility] Comment on above: Performed By: #### 2 474413, 5373854, 97508977, 2724539, 906342664 #### [facility] [address] [place] [address] Anion gap [Moles/Vol] 9 mmol/L Normal 6-16 [facility] Comment on above: Performed By: #### 2 291312, 4884812, 47131386, 9130103, 867261801 #### [facility] [address] [place] [address] AST 20 Int._Unit/L Normal 5-43 [facility] Comment on above: Performed By: #### 2 351710, 9012974, 27856464, 7736507, 383947650 #### [facility] [address] [place] [address] Bili Total 0.9 mg/dL Normal 0.0-1.1 [facility] Comment on above: Performed By: #### 2 644133, 1520123, 16261494, 4255718, 106753645 #### [facility] Laboratory [address] [place] [address] BUN/Creat Ratio 10 No Units Normal 10-20 [facility] Comment on above: Performed By: #### 2 084384, 0433113, 97244296, 3507455, 006159365 #### [facility] [address] [place] [address] Calcium [Mass/Vol] 8.7 mg/dL Low 8.9-11.1 [facility] Comment on above: Performed By: #### 2 884024, 2935111, 43085855, 9064960, 228113430 #### [facility] [address] [place] [address] Chloride [Moles/Vol] 104 mmol/L Normal 101-111 [facility] Comment on above: Performed By: #### 2 876710, 3487692, 36558285, 4453654, 098984153 #### [facility] [address] [place] [address] CO2 [Moles/Vol] 30 mmol/L Normal 21-31 [facility] Comment on above: Performed By: #### 2 836731, 4284363, 26542171, 6084096, 848845587 #### [facility] [address] [place] [address] Creatinine [Mass/Vol] 1.1 mg/dL Normal 0.5-1.3 [facility] Comment on above: Performed By: #### 2 130743, 6807300, 36049026, 6684256, 433714027 #### [facility] [address] [place] [address] Globulin (S) [Mass/Vol] 2.5 g/dL Normal 1.4-4.0 [facility] Comment on above: Performed By: #### 2 242629, 0453579, 62890929, 2844935, 391720741 #### [facility] [address] [place] [address] Glucose [Mass/Vol] 72 mg/dL Normal 55-199 [facility] Comment on above: Performed By: #### 2 704585, 3173966, 05191719, 1485564, 299638898 #### [facility] [address] [place] [address] Potassium [Moles/Vol] 4.2 mmol/L Normal 3.5-5.3 [facility] Comment on above: Performed By: #### 2 095048, 0683409, 91137636, 3192299, 448569726 #### [facility] Laboratory [address] [place] [address] Protein [Mass/Vol] 6.4 g/dL Normal 6.0-7.8 [facility] Comment on above: Performed By: #### 2 663610, 0982726, 20887717, 4713264, 689614004 #### [facility] [address] [place] [address] Sodium [Moles/Vol] 139 mmol/L Normal 135-145 [facility] Comment on above: Performed By: #### 2 060498, 4844338, 60555499, 0762087, 687739809 #### [facility] [address] [place] [address] Urea nitrogen [Mass/Vol] 11 mg/dL Normal 5-21 [facility] Comment on above: Performed By: #### 2 990533, 0175130, 06825788, 3603142, 877297850 #### [facility] [address] [place] [address] HEMATOLOGYOrdered By: SYSTEM SYSTEM on 12-01-2023 Basophil [...] Normal 80.0 - 100.0 fL Remisol Heme [place] Absolute 0.5 E9/L Normal 0.2 - 1.0 [...] Low 4.3 - 5.9 E12/L Remisol H feltno WBC 6.0 E9/L Normal 4.0 - 11.0 E9/L Remisol H [place] HEMATOLOGYOrdered By: Starr Tadeo on 12-01-2023 NRBC Man 0 1 Normal 0 - 0 Remisol Heme [id number] 12-01-2023 HbA1c (Bld) [Mass fraction] 5.6 % Normal <=5.9 [facility] Comment on above: Performed By: #### 2 175846, 1336158, 80226809, 8894553, 422823736 ####[facility] [address] [place] [address] Lipid Panelon 12-01-2023 Cholesterol [Mass/Vol] 156 mg/dL Normal 120-200 [facility] Comment on above: Performed By: #### 2 931368, 4918664, 40381327, 5966055, 125048284 #### [facility] Laboratory [address] [place] [address] Cholesterol in HDL [Mass/Vol] 51 mg/dL Invalid Interpretation Code [facility] Comment on above: Result Comment: '>= 60 LOW RISK' '<= 40 HIGH RISK' Performed By: #### 2 113762, 7280717, 29652323, 2958863, 544608809 #### [facility] Laboratory [address] [place] [address] Cholesterol in LDL [Mass/Vol] 89 mg/dL Normal <=129 [facility] Comment on above: Performed By: #### 2 787325, 6677318, 49612692, 1375041, 776946957 #### [facility] Laboratory [address] [place] [address] Cholesterol in VLDL [Mass/Vol] 18 mg/dL Normal 7-40 [facility] Comment on above: Performed By: #### 2 277477, 5050801, 18789507, 3087573, 389926348 #### [facility] [address] [place] [address] Triglyceride [Mass/Vol] 92 mg/dL Normal <=149 [facility] Comment on above: Performed By: #### 2 368590, 2646667, 97871137, 4699336, 492445424 #### [facility] [address] [place] [address] U Microalbon 12-01-2023 U Microalb <2.0 Normal 0.0-19.0 [facility] Comment on above: Performed By: #### 1 377653381, 91563248 ####[facility] [address] [place] [address] U Protein/Creat Ratioon 11-14 U Creatinine 62.5 mg/dL Invalid Interpretation Code [facility] Comment on above: Performed By: #### 1 019970229, 16247208 ####[facility] [address] [place] [address] U Prot/Creat Ratio NOT CALCULATED Invalid Interpretation Code .00-200.00 [facility] Comment on above: Performed By: #### 1 038646417, 04440817 ####[facility] [address] [place] [address] Ur Total Protein <6.0 Invalid Interpretation Code [facility] Comment on above: Performed By: #### 1 [id number], 52210182 ####[facility] [address] [place] [address] eGFRon 12-01-2023 eGFR 67 mL/min/1.73 m2 Normal >=59 [facility] Comment on above: Order Comment: Order added by Discern Expert. Performed By: #### 2 075281, 1093796, 67404387, 8852436, 080479655 #### [facility] [address] [place] [address] Basic Metabolic Panelon 12-2 Anion gap [Moles/Vol] 8.1 mmol/L Normal 6.0-15.0 [facility] Comment on above: Order Comment: Reaso n for Exam Hyponatremia Performed By: #### C BC, BMP #### [facility] [address] 9743270 [facility] Calcium [Mass/Vol] 9.3 mg/dL Normal 8.6-10.3 [facility] Comment on above: Order Comment: Reaso n for Exam Hyponatremia Result Comment: PERF ORMED BY: [place] [address] PATHOLOGIST FIELD INSURANCE SALES MANAGER DANNY NEAL M.D. Performed By: #### C BC, BMP #### [facility] [address] Chloride [Moles/Vol] 102 mmol/L Normal 98-107 [email or web address] Other Comment on above: Order Comment: Reaso n for Exam Hyponatremia Performed By: #### C BC, BMP #### [facility] [address] [place] [address] [place] CO2 [Moles/Vol] 32.4 mmol/L High 21.0-31.0 [facility] Comment on above: Order Comment: Reaso n for Exam Hyponatremia Performed By: #### C BC, BMP #### [facility] [address] [place] [address] [place] Creatinine [Mass/Vol] 1.07 mg/dL Normal 0.70-1.30 [facility] Comment on above: Order Comment: Reaso n for Exam Hyponatremia Performed By: #### C BC, BMP #### [facility] [address] [place] [address] [place] GFR/1.73 sq M.predicted MDRD (S/P/Bld) [Vol rate/Area] mL/min/{1.73_m2} Normal [facility] Other Comment on above: Order Comment: Reaso n for Exam Hyponatremia Performed By: #### C BC, BMP #### [facility] [address] [place] [address] [facility] Glucose [Mass/Vol] 93 mg/dL Normal 70-100 [facility] Other Comment on above: Order Comment: Reaso n for Exam Hyponatremia Result Comment: [facility] Glucose Reference Range is dependent on time and content of last meal. Glucose of more than 200 mg/dL in a nonstressed, ambulatory subject supports the diagnosis of Diabetes Mellitus. ADA recommended reference range Performed By: #### C BC, BMP #### [facility] [address] Potassium [Moles/Vol] 4.5 mmol/L Normal 3.5-5.1 [facility] Comment on above: Order Comment: Reaso n for Exam Hyponatremia Performed By: #### C BC, BMP #### [facility] [address] [place] [address] [facility] Sodium [Moles/Vol] 138 mmol/L Normal 136-145 [facility] Other Comment on above: Order Comment: Reaso n for Exam Hyponatremia Performed By: #### C BC, BMP #### [facility] [address] [place] [address]32[address] [place] Urea nitrogen [Mass/Vol] 13 mg/dL Normal 7-25 [facility] Other Comment on above: Order Comment: Reaso n for Exam Hyponatremia Performed By: #### C BC, BMP #### [facility] [address] [place] [address]32[address] [place] Calcium [Mass/Vol] 9.1713223 mg/dL Normal 8.6-10.3 mg/ dL [facility] Other CO2 [Moles/Vol] 32.51688519 mmol/L High 21.0-31.0 mm ol/L [facility] Other Creatinine [Mass/Vol] 1.05183730 mg/dL Normal 0.70-1.30 mg/dL [facility] Other Potassium [Moles/Vol] 4.95061850 mmol/L Normal 3.5-5.1 mmol/L [facility] Other Complete Blood Count Auto Di ffon 11-02-2023 Basophils (Bld) [#/Vol] 0.1 10*3/uL Normal 0.0-0.2 [facility] Comment on above: Order Comment: Reaso n for Exam Atrial fibrillation Result Comment: PERF ORMED BY: [place] [address] PATHOLOGIST [employer] INSURANCE SALES MANAGER DANNY NEAL M.D. Performed By: #### C BC, BMP #### [address] Basophils/100 WBC (Bld) 1.0 % Normal . [facility] Comment on above: Order Comment: Reaso n for Exam Atrial fibrillation Performed By: #### C BC, BMP #### [address] Eosinophils (Bld) [#/Vol] 0.1 10*3/uL Normal 0.0-0.45 [facility] Comment on above: Order Comment: Reaso n for Exam Atrial fibrillation Performed By: #### C BC, BMP #### [address] Eosinophils/100 WBC (Bld) 2.1 % Normal . [facility] Comment on above: Order Comment: Reaso n for Exam Atrial fibrillation Performed By: #### C BC, BMP #### [address] Erythrocyte distribution width (RBC) [Ratio] 14.0 % Normal 12.0-14.8 [facility] Comment on above: Order Comment: Reaso n for Exam Atrial fibrillation Performed By: #### C BC, BMP #### [address] Hematocrit (Bld) [Volume fraction] 38.8 % Normal 38.8-50.0 [facility] Comment on above: Order Comment: Reaso n for Exam Atrial fibrillation Performed By: #### C BC, BMP #### [address] Hemoglobin (Bld) [Mass/Vol] 13.2 g/dL Normal 13.0-17.0 [facility] Comment on above: Order Comment: Reaso n for Exam Atrial fibrillation Performed By: #### C BC, BMP #### [address] Lymphocytes (Bld) [#/Vol] 1.3 10*3/uL Normal 1.00-4.8 [facility] Comment on above: Order Comment: Reaso n for Exam Atrial fibrillation Performed By: #### C BC, BMP #### [address] Lymphocytes/100 WBC (Bld) 21.8 % Normal . [facility] Comment on above: Order Comment: Reaso n for Exam Atrial fibrillation Performed By: #### C BC, BMP #### [address] MCH (RBC) [Entitic mass] 31.5 pg Normal 27.5-35.2 [facility] Comment on above: Order Comment: Reaso n for Exam Atrial fibrillation Performed By: #### C BC, BMP #### [address] MCV (RBC) [Entitic vol] 92.7 fL Normal 83.5-101 [facility] Comment on above: Order Comment: Reaso n for Exam Atrial fibrillation Performed By: #### C BC, BMP #### [address] Mean Corpuscular HGB Conc 34.0 g/dL Normal 32.5-35.6 [facility] Comment on above: Order Comment: Reaso n for Exam Atrial fibrillation Performed By: #### C BC, BMP #### [address] Monocytes (Bld) [#/Vol] 0.5 10*3/uL Normal 0.0-0.8 [facility] Comment on above: Order Comment: Reaso n for Exam Atrial fibrillation Performed By: #### C BC, BMP #### [facility] [address] [place] [address] [place] Monocytes/100 WBC (Bld) 8.5 % Normal . [facility] Comment on above: Order Comment: Reaso n for Exam Atrial fibrillation Performed By: #### C BC, BMP #### [facility] [address] Neutrophils (Bld) [#/Vol] 4.0 10*3/uL Normal 1.8-7.7 [facility] Comment on above: Order Comment: Reaso n for Exam Atrial fibrillation Performed By: #### C BC, BMP #### [facility] [address] Neutrophils/100 WBC (Bld) 66.6 % Normal . [facility] Comment on above: Order Comment: Reaso n for Exam Atrial fibrillation Performed By: #### C BC, BMP #### [facility] [address] NRBC% 0.1 /100{WBC} Normal 0-0.5 [facility] Comment on above: Order Comment: Reaso n for Exam Atrial fibrillation Performed By: #### C BC, BMP #### [place] [address] [place] Platelet mean volume (Bld) [Entitic vol] 9.4 fL Normal 6.6-10.1 [facility] Comment on above: Order Comment: Reaso n for Exam Atrial fibrillation Performed By: #### C BC, BMP #### [place] [address] [place] Platelets (Bld) [#/Vol] 153 10*3/uL Normal 150-450 [facility] Other Comment on above: Order Comment: Reaso n for Exam Atrial fibrillation Performed By: #### C BC, BMP #### [place] [address] [place] RBC (Bld) [#/Vol] 4.19 10*6/uL Normal 3.90-5.60 [facility] Other Comment on above: Order Comment: Reaso n for Exam Atrial fibrillation Performed By: #### C BC, BMP #### [facility] [address] WBC (Bld) [#/Vol] 6.1 10*3/uL Normal 4.1-10.5 [facility] Comment on above: Order Comment: Reaso n for Exam Atrial fibrillation Performed By: #### C CECILIA, BMP #### [facility] [address] [place] [id number] [facility] Basophils (Bld) [#/Vol] 0.280305963 10*3/uL Normal 0.0-0.2 10*3/uL [facility] Other Basophils/100 WBC (Bld) 1.000 % . % [facility] Other Eosinophils (Bld) [#/Vol] 0.298137736 10*3/uL Normal 0.0-0.45 10*3/uL [facility] Other Eosinophils/100 WBC (Bld) 2.100 % . % [facility] Other Erythrocyte distribution width (RBC) [Ratio] 14.000 % Normal 12.0-14.8 % [facility] Other Hematocrit (Bld) [Volume fraction] 38.800 % Normal 38.8-50.0 % [facility] Other Hemoglobin (Bld) [Mass/Vol] 13.234333 g/dL Normal 13.0-17.0 g/dL [facility] Other Lymphocytes (Bld) [#/Vol] 1.385304465 10*3/uL Normal 1.00-4.8 10*3/uL [facility] Other Lymphocytes/100 WBC (Bld) 21.800 % . % [facility] Other MCH (RBC) [Entitic mass] 31.5000 pg Normal 27.5-35.2 pg [facility] Other MCV (RBC) [Entitic vol] 92.7000 fL Normal 83.5-101 fL [facility] Other Monocytes (Bld) [#/Vol] 0.082057712 10*3/uL Normal 0.0-0.8 10*3/uL [facility] Other Monocytes/100 WBC (Bld) 8.500 % . % [facility] Other Neutrophils (Bld) [#/Vol] 4.168098033 10*3/uL Normal 1.8-7.7 10*3/uL [facility] Other Neutrophils/100 WBC (Bld) 66.600 % . % [facility] Other Platelet mean volume (Bld) [Entitic vol] 9.4000 fL Normal 6.6-10.1 fL [facility] Other WBC (Bld) [#/Vol] 6.186684235 10*3/uL Normal 4.1-10.5 10*3/uL [facility] Other Complete Blood Count Auto Diff 6.1 10*3/uL Normal 4.1-10.5 10*3/uL [facility] Other Complete Blood Count Auto Diff 34.0 g/dL Normal 32.5-35.6 g/dL [facility] Other Complete Blood Count Auto Diff 0.1 /100{WBC} Normal 0-0.5 /100{WBC} [facility] Other PSA Screen (Yearly Only)on 01-03-2023 PSA Screen (Yearly Only) 1.940 ng/mL Normal 0.000-4.000 [facility] Comment on above: Order Comment: Reaso n for Exam Prostate cancer screening Result Comment: Dominik al tumor marker results determined by assays using different manufacturers or methods may not be comparable. [facility] group account director and method: Jellynote DXI, CHEMILUMINESCENT IMMUNOASSAY. PERFORMED BY: [address] [place] [address] PATHOLOGIST FIELD INSURANCE SALES MANAGER DANNY NEAL M.D. Performed By: #### P SAS #### [facility] [address] [place] [address] [facility] Prothrombin Time INRon 06-16 INR Coag (PPP) [Relative time] 2.4 {INR} Normal [place] [email or web address] Other Comment on above: Result Comment: INR [...] heart valves: 3 - 4.5 PERFORMED BY: [address] [place] [address] PATHOLOGIST FIELD INSURANCE SALES MANAGER DANNY NEAL M.D. Performed By: #### P T #### [facility] [address] [place] [address] [facility] PT Coag (PPP) [Time] 27.8 s High 9.0-12.9 [facility] Comment on above: Performed By: #### P T #### [address] [address] [facility] PT Coag (PPP) [Time] 27.800 s High 9.0-12.9 s [facility] Other Coding Summaryon 05-12-2020 Coding Summary CODING DATE: 05/12/2020 [facility] STATUS: Home PAYOR: Medicare MC [...] Aidee Horan Date Saved: 05/12/2020 02:18 pm [facility] ED Clinical Summaryon 2019 ED Clinical Summary [facility] ? Urgent Care [address] [place], [place] [id number] Clinical Summary PERSON INFORMATION Name: DARIEL ZABALA Age: 80 Years Sex: MALE : 1940 MRN: Acct#: Visit Reason: UC - Ear Problem; BILAT EAR PROBLEM Arrival: 05/08/2020 09:32:00 Discharge: 05/08/2020 10:15:00 LOS: 000 00:43 Check In: 05/08/2020 09:32:00 Checkout: 05/08/2020 10:15:00 [facility] [address] PCP: Provider, Unlisted PROVIDER INFORMATION Provider Role [...] Adult Follow-Up: With: Address: When: Andrés Arellano [facility], [address] [place] [address] [phone] Business (1) Comments: Please follow-up with your Doctor or Dr. Arellano, Medical Doctor donor specialist, call their offices and make ointment to be seen in 3 days or sooner for continued care, please purchase froz-vhz-anzfyse Debrox which helps breakdown earwax, take all your medications as previously prescribed, drink plenty of water for hydration, and return back to urgent care center for any worsening symptoms, concerns, or complications. DIAGNOSIS: 1:Impacted cerumen of both ears Patient Understands: Yes - Patient/family/child care group leader verbalizes understanding of instructions given Comment: [facility] ED Patient Summaryon 020 ED Patient Summary [facility] ? Urgent Care [address] [place] [address] PATIENT DISCHARGE INSTRUCTIONS Patient Information Name: DARIEL ZABALA Age: 80 Years Date of : 1940 Reason For Visit: UC - Ear Problem; BILAT EAR PROBLEM Arrival Time: 05/08/2020 09:32:00 Primary Care Physician: Provider, Unlisted Attending Physician: Larry Billingsley PA-C Comment: Patient Education With: Address: When: Andréslisa Arellano [facility], [address] [place] [id number] Business (1) Comments: Please follow-up with your Doctor or Dr. Arellano, Medical Doctor donor specialist, call their offices and make ointment to be seen in 3 days or sooner for continued care, please purchase bazb-nny-vrfatqr Debrox which helps breakdown earwax, take all [...] Follow these instructions at home: ? Take ioga-jdj-nlxuyao and prescription medicines only as told by [...] clean them according to instructions from the group account director and your health care provider. Contact a [...] 12/08/2005 Document Revised: 10/12/2018 Document Reviewed: 01/11/2018 [employer] Interactive Patient Education ? 2019 [employer]. Medication Information: The exam and treatment you received today in the [facility] Emergency Department were for an urgent problem and are not intended as complete care. It is important for you to follow up with a doctor, nurse practitioner, or physician?s assistant community director for ongoing care. If your symptoms [...] so we can reach you if necessary. [facility] Emergency Department has provided you with a complete list of medications post discharge. Please inform your primary operator/provider of your visit and for further [...] both ears (H61.23) UC - Ear Problem ([id number]) If you received any narcotics, sedation, or [...] for Disease Control and Prevention July 2014 [facility] Patient Handouton 05-08-2020 Patient Handout Patient [...] Follow these instructions at home: ? Take fdqj-oer-arifebc and prescription medicines only as told by [...] clean them according to instructions from the group account director and your health care provider. Contact a [...] 12/08/2005 Document Revised: 10/12/2018 Document Reviewed: 01/11/2018 [email or web address] Interactive Patient Education ? 2019 [employer] Normal [facility] Urgent Care Rec[facility] 020 Urgent Care Record [facility] ? Urgent Care [address] [id number] PATIENT DISCHARGE INSTRUCTIONS Patient Information Name: DARIEL ZABALA Age: 80 Years Date of : 1940 Reason For Visit: UC - Ear Problem; BILAT EAR PROBLEM Arrival Time: 05/08/2020 09:32:00 Primary Care Physician: Provider, Unlisted Attending Physician: Billingsley, Larry PA-C Comment: Visit Diagnosis: Diagnoses This Visit Impacted cerumen of both ears (H61.23) UC - Ear Problem ([id number]) If you received any narcotics, sedation, or [...] any legal documents With: Address: When: Andrés [facility], [address] [place] [address] Business (1) Comments: Please follow-up with your Doctor or Dr. Arellano, Medical Doctor donor specialist, call their offices and make ointment to be seen in 3 days or sooner for continued care, please purchase hjwi-xbb-ttkcqdf Debrox which helps breakdown earwax, take all your medications as previously prescribed, drink plenty of water for hydration, and return back to urgent care center for any worsening symptoms, concerns, or complications. Medication Information: The exam and treatment you received today in the [facility] were for an urgent problem and are not intended as complete care. It is important for you to follow up with a doctor, nurse practitioner, or physician?s assistant community director for ongoing care. If your symptoms [...] so we can reach you if necessary. [facility] has provided you with a complete list of medications post discharge. Please inform your primary operator/provider of your visit and for further [...] Follow these instructions at home: ? Take [id number] and prescription medicines only as told by [...] clean them according to instructions from the group account director and your health care provider. Contact a [...] 12/08/2005 Document Revised: 10/12/2018 Document Reviewed: 01/11/2018 [employer] Patient Education ? 2019 [employer] Viruses or Bacteria What?s got you [...] for Disease Control and Prevention July 2014 [facility] Vital Signs Date Time Vital Sign Value Performing Clinician Facility 11-19-2024 14:27-0500 Diastolic blood pressure 82 mm[Hg] Axel Hernández [facility] 11-19-2024 14:27-0500 Heart rate 66 /min Axel Hernández [facility] 11-19-2024 14:27-0500 Mean blood pressure 103 mm[Hg] Axel Hernández [facility] 11-19-2024 14:27-0500 Respiratory rate 18 /min Axel Hernández [facility] 11-19-2024 14:27-0500 SaO2% (BldA) [Mass fraction] 95 % Axel Hernández [facility] 11-19-2024 14:27-0500 Systolic blood pressure 144 mm[Hg] Axel Catherine [facility] 11-19-2024 13:23-0500 Blood Pressure Location Axel Catherine [facility] 11-19-2024 13:23-0500 Body temperature 96.8 [degF] Axel Catherine [facility] 11-19-2024 13:23-0500 Diastolic blood pressure 69 mm[Hg] Axel Catherine [facility] 11-19-2024 13:23-0500 Heart rate 63 /min Axel Catherine [facility] 11-19-2024 13:23-0500 Mean blood pressure 92 mm[Hg] Axel Catherine [facility] 11-19-2024 13:23-0500 Respiratory rate 20 /min Axel Catherine [facility] 11-19-2024 13:23-0500 SaO2% (BldA) [Mass fraction] 99 % Axel Catherine [facility] 11-19-2024 13:23-0500 Systolic blood pressure 139 mm[Hg] Axel Hernández [facility] 11-19-2024 13:05-0500 Body temperature 97.34 [degF] Axel Catherine [facility] 11-19-2024 13:05-0500 Diastolic blood pressure 69 mm[Hg] Axel Hernández [facility] 11-19-2024 13:05-0500 Heart rate 65 /min Axel Hernández [facility] 11-19-2024 13:05-0500 Mean blood pressure 87 mm[Hg] Axel Hernández [facility] 11-19-2024 13:05-0500 Respiratory rate 16 /min Axel Catherine [facility] 11-19-2024 13:05-0500 SaO2% (BldA) [Mass fraction] 97 % Axel Catherine [facility] 11-19-2024 13:05-0500 Systolic blood pressure 122 mm[Hg] Axel Catherine [facility] 11-19-2024 12:40-0500 Body temperature 97.7 [degF] Axel Catherine [facility] 11-19-2024 12:35-0500 Respiratory rate 12 /min Axel Catherine [facility] 11-19-2024 12:30-0500 Body temperature 96.8 [degF] Axel Hernández [facility] 11-19-2024 12:30-0500 Respiratory rate 13 /min Axel Catherine [facility] 11-19-2024 12:25-0500 Body temperature 96.8 [degF] Axel Hernández [facility] 11-19-2024 12:25-0500 Respiratory rate 15 /min Axel Hernández [facility] 11-19-2024 12:20-0500 Body temperature 96.8 [degF] Axel Hernández [facility] 11-19-2024 09:55-0500 Mean blood pressure 85 mm[Hg] Axel Hernández [facility] 11-19-2024 09:52-0500 Mean blood pressure 79 mm[Hg] Axel Hernández [facility] 10-30-2024 10:36-0500 Diastolic blood pressure 67 mm[Hg] Axel Hernández [facility] 10-30-2024 10:36-0500 Heart rate 57 /min Axel Hernández [facility] 10-30-2024 10:36-0500 Mean blood pressure 86 mm[Hg] Axel Catherine [facility] 10-30-2024 10:36-0500 Systolic blood pressure 124 mm[Hg] Axel Catherine [facility] 10-30-2024 10:34-0500 Heart rate 56 /min Axel Hernández [facility] 10-30-2024 10:34-0500 SaO2% (BldA) [Mass fraction] 100 % Axel Hernández [facility] 10-30-2024 10:34-0500 Diastolic blood pressure 83 mm[Hg] Axel Catherine [facility] 10-30-2024 10:34-0500 Mean blood pressure 105 mm[Hg] Axel Catherine [facility] 10-30-2024 10:34-0500 Systolic blood pressure 148 mm[Hg] Axel Catherine [facility] 10-03-2024 10:58-0500 Body height 176.5 cm Axel Catherine ELLIS Work Phone: [facility] 10-03-2024 10:58-0500 Body mass index (BMI) [Ratio] 26.64 kg/m2 Axel Hernández Work Phone: [facility] 10-03-2024 10:58-0500 Body temperature 98.1 [degF] Axel Hernández DO Work Phone: [facility] 10-03-2024 10:58-0500 Body weight 83.01 kg Axel Hernández DO Work Phone: [facility] 08-28-2024 14:47-0400 Blood Pressure Location Davie Vargas [facility] [place] 08-28-2024 14:47-0400 Diastolic blood pressure 75 mm[Hg] Davie Hudsonurany [facility] [place] 08-28-2024 14:47-0400 Heart rate 65 /min Davie Mourany [facility] [place] 08-28-2024 14:47-0400 Respiratory rate 16 /min Davie Mourany [facility] [place] 08-28-2024 14:47-0400 Systolic blood pressure 119 mm[Hg] Davie Mourany [facility] [place] 06-11-2024 12:48-0400 Diastolic blood pressure 78 mm[Hg] Kashif Kirnus [facility] 06-11-2024 12:48-0400 Heart rate 70 /min Kashif Kirnus [facility] 06-11-2024 12:48-0400 Respiratory rate 18 /min Kashif Kirnus [facility] 06-11-2024 12:48-0400 SaO2% (BldA) [Mass fraction] 97 % Kashif Kirnus [facility] 06-11-2024 12:48-0400 Systolic blood pressure 138 mm[Hg] Kashif Kirnus [facility] 05-30-2024 13:31-0400 Blood Pressure Location Dixon Dubose [facility] 05-30-2024 13:31-0400 Diastolic blood pressure 70 mm[Hg] Dixon Dubose [facility] 05-30-2024 13:31-0400 Heart rate 75 /min Dixon Dubose [facility] 05-30-2024 13:31-0400 Respiratory rate 18 /min Dixon Dubose [facility] 05-30-2024 13:31-0400 SaO2% (BldA) [Mass fraction] 95 % Dixon Dubose [facility] 05-30-2024 13:31-0400 Systolic blood pressure 130 mm[Hg] Dixon Dubose [facility] 04-20-2024 13:17-0400 Diastolic blood pressure 78 mm[Hg] Kashif Kirnus [facility] 04-20-2024 13:17-0400 Heart rate 62 /min Kashif Kirnus [facility] 04-20-2024 13:17-0400 SaO2% (BldA) [Mass fraction] 97 % Kashif Kirnus [facility] 04-20-2024 13:17-0400 Systolic blood pressure 138 mm[Hg] Kashif Kirnus [facility] 03-26-2024 14:30-0400 Diastolic blood pressure 64 mm[Hg] Axel Hernández [facility] 03-26-2024 14:30-0400 Heart rate 50 /min Axel Hernández [facility] 03-26-2024 14:30-0400 Respiratory rate 16 /min Axel Hernández [facility] 03-26-2024 14:30-0400 SaO2% (BldA) [Mass fraction] 98 % Axel Hernández [facility] 03-26-2024 14:30-0400 Systolic blood pressure 128 mm[Hg] Axel Hernández [facility] 03-26-2024 13:31-0400 Heart rate 54 /min Axel Hernández [facility] 03-26-2024 13:31-0400 SaO2% (BldA) [Mass fraction] 97 % Axel Hernández [facility] 03-26-2024 13:31-0400 Respiratory rate 16 /min Axel Hernández [facility] 03-26-2024 13:30-0400 Body temperature 97.34 [degF] Axel Catherine [facility] 03-26-2024 13:29-0400 Blood Pressure Location Axel Hernández [facility] 03-26-2024 13:29-0400 Diastolic blood pressure 70 mm[Hg] Axel Catherine [facility] 03-26-2024 13:29-0400 Mean blood pressure 88 mm[Hg] Axel Catherine [facility] 03-26-2024 13:29-0400 Systolic blood pressure 125 mm[Hg] Axel Catherine [facility] 03-26-2024 13:20-0400 Body temperature 97.52 [degF] Axel Catherine [facility] 03-26-2024 13:20-0400 Diastolic blood pressure 63 mm[Hg] Axel Catherine [facility] 03-26-2024 13:20-0400 Heart rate 54 /min Axel Catherine [facility] 03-26-2024 13:20-0400 Mean blood pressure 77 mm[Hg] Axel Catherine [facility] 03-26-2024 13:20-0400 Respiratory rate 15 /min Axel Catherine [facility] 03-26-2024 13:20-0400 SaO2% (BldA) [Mass fraction] 97 % Axel Catherine [facility] 03-26-2024 13:20-0400 Systolic blood pressure 104 mm[Hg] Axel Hernández [facility] 03-26-2024 13:15-0400 Mean blood pressure 73 mm[Hg] Axel Hernández [facility] 03-26-2024 13:15-0400 Respiratory rate 15 /min Axel Catherine [facility] 03-26-2024 13:10-0400 Mean blood pressure 72 mm[Hg] Axel Catherine [facility] 03-26-2024 13:10-0400 Respiratory rate 11 /min Axel Catherine [facility] 03-26-2024 12:55-0400 Body temperature 97.52 [degF] Axel Catherine [facility] 03-26-2024 12:50-0400 Respiratory rate 1 /min Axel Catherine [facility] 03-26-2024 09:36-0400 Blood Pressure Location Axel Catherine [facility] 03-26-2024 09:36-0400 Mean blood pressure 112 mm[Hg] Axel Catherine [facility] 03-26-2024 09:34-0400 Mean blood pressure 97 mm[Hg] Axel Catherine [facility] 03-26-2024 09:34-0400 Body temperature 97.34 [degF] Axel Catherine [facility] 03-26-2024 09:34-0400 Blood Pressure Location Axel Catherine [facility] 03-26-2024 09:34-0400 Heart rate 50 /min Axel Catherine [facility] 03-06-2024 08:11-0400 Blood Pressure Location Axel Hernández [facility] 03-06-2024 08:11-0400 Diastolic blood pressure 74 mm[Hg] Axel Hernández [facility] 03-06-2024 08:11-0400 Heart rate 56 /min Axel Hernández [facility] 03-06-2024 08:11-0400 Mean blood pressure 98 mm[Hg] Axel Hernández [facility] 03-06-2024 08:11-0400 Systolic blood pressure 147 mm[Hg] Axel Hernández [facility] 03-06-2024 08:11-0400 Heart rate 57 /min Axel Hernández [facility] 03-06-2024 08:11-0400 SaO2% (BldA) [Mass fraction] 98 % Axel Hernández [facility] 03-06-2024 08:10-0400 Blood Pressure Location Axel Hernández [facility] 03-06-2024 08:10-0400 Body temperature 98.06 [degF] Axel Hernández [facility] 03-06-2024 08:10-0400 Diastolic blood pressure 73 mm[Hg] Axel Hernández [facility] 03-06-2024 08:10-0400 Mean blood pressure 92 mm[Hg] Axel Catherine [facility] 03-06-2024 08:10-0400 Systolic blood pressure 129 mm[Hg] Axel Hernández [facility] 03-06-2024 08:10-0400 Respiratory rate 18 /min Axel Hernández [facility] 11-18-2023 11:00-0500 Body height 180.34 cm Jada Rene Other [employer] Other 11-18-2023 11:00-0500 Body mass index (BMI) [Ratio] 25.38 kg/m2 Jada Rene Other [employer] Other 11-18-2023 11:00-0500 Body temperature 97.6 [degF] Jada Rene Other [facility] Other 11-18-2023 11:00-0500 Body weight 82.56 kg Jada Rene Other [facility] Other 11-18-2023 11:00-0500 Diastolic blood pressure 80 mm[Hg] Jada Rene Other [employer] Other 11-18-2023 11:00-0500 Respiratory rate 18 /min Jadamary Rene Other [employer] Other 11-18-2023 11:00-0500 SaO2% (BldA) [Mass fraction] 99 % Jadaendy Rene Other [employer] Other 11-18-2023 11:00-0500 Systolic blood pressure 132 mm[Hg] Jadaendy Rene Other [facility] Other 11-02-2023 13:00-0500 Body height 180.34 cm Jada Rene Other [employer] Other 11-02-2023 13:00-0500 Body mass index (BMI) [Ratio] 24.4 kg/m2 Jada Rene Other [employer] Other 11-02-2023 13:00-0500 Body weight 79.38 kg Jadaendy Rene Other [employer] Other 11-02-2023 13:00-0500 Diastolic blood pressure 82 mm[Hg] Jada Rene Other [employer] Other 11-02-2023 13:00-0500 Respiratory rate 18 /min Jada Rene Other [employer] Other 11-02-2023 13:00-0500 SaO2% (BldA) [Mass fraction] 97 % Jada Rene Other [employer] Other 11-02-2023 13:00-0500 Systolic blood pressure 138 mm[Hg] Jada Rene Other [employer] Other 09-21-2023 10:00-0500 Body height 180.34 cm Jada Rene Other [employer] Other 09-21-2023 10:00-0500 Body mass index (BMI) [Ratio] 25.81 kg/m2 Jada Rene Other [employer] Other 09-21-2023 10:00-0500 Body weight 83.96 kg Jada Rene Other [facility] Other 09-21-2023 10:00-0500 Diastolic blood pressure 70 mm[Hg] Jada Rene Other [facility] Other 09-21-2023 10:00-0500 Respiratory rate 18 /min Jada Rene Other [employer] Other 09-21-2023 10:00-0500 SaO2% (BldA) [Mass fraction] 98 % Jada Edgard Other [facility] Other 09-21-2023 10:00-0500 Systolic blood pressure 140 mm[Hg] Jada Edgard Other [facility] Other 06-16-2023 11:00-0400 Body height 180.34 cm Jada Edgard Other [facility] Other 06-16-2023 11:00-0400 Body mass index (BMI) [Ratio] 23.79 kg/m2 Jadaendy Rene Other [facility] Other 06-16-2023 11:00-0400 Body weight 77.38 kg Jada Rene Other [facility] Other 06-16-2023 11:00-0400 Diastolic blood pressure 64 mm[Hg] Jada Edgard Other [employer] Other 06-16-2023 11:00-0400 Respiratory rate 18 /min Jada Rene Other [employer] Other 06-16-2023 11:00-0400 SaO2% (BldA) [Mass fraction] 98 % Jada Edgard Other [employer] Other 06-16-2023 11:00-0400 Systolic blood pressure 118 mm[Hg] Jada Edgard Other [employer] Other Encounters Encounter Date Encounter Type Care Provider Facility Start: 05-02-2025 ambulatory Kylah Medina Facility :[facility] [place] Start: 11-19-2024 End: 11-19-2024 Clinisync Result Encounter Axel Hernández DO Work Phone: [facility] External Department Unsolicited Start: 11-19-2024 End: 11-19-2024 Clinisync Result Encounter Axel Hernández DO Work Phone: [facility] External Department Unsolicited Start: 11-19-2024 End: 11-19-2024 Admission to same day surgery center Axel Hernández [facility] Start: 11-13-2024 ambulatory Kylah Medina Facility :[facility] Start: 11-12-2024 End: 11-12-2024 Lab Drop off Kylah Medina [facility] Start: 11-12-2024 End: 11-12-2024 ambulatory Kylah Medina Facility:[facility] [place] [facility] Start: 11-01-2024 End: 11-01-2024 ambulatory Kylah Medina Facility:[facility] [place] [facility] Start: 10-30-2024 End: 10-30-2024 ambulatory Axel Hernández Facility:[facility] Start: 10-30-2024 End: 10-30-2024 Patient encounter procedure Axel Hernández [facility] Start: 10-03-2024 End: 10-03-2024 Bamboo flowsheet Axel [...] encounter status Axel Hernández DO Work Phone: [facility] Start: 10-03-2024 End: 10-03-2024 ambulatory AXEL HERNÁNDEZ Not Available Start: 09-28-2024 End: 09-28-2024 Bamboo flowsheet Shala Farrell MD Work Phone: [facility] Start: 09-28-2024 End: 09-28-2024 Bamboo flowsheet Shala Farrell MD Work Phone: [facility] BM NEUROLOGY Start: 09-28-2024 End: 09-28-2024 Patient encounter procedure Shala Farrell MD Work Phone: [facility] SWS NEUR B Comment on above: Pain in both upper e xtremities (Primary Dx); Carpal tunnel syndrome, bilateral Start: 09-28-2024 End: 09-28-2024 ambulatory SHALA FARRELL Not Available Start: 09-10-2024 End: 09-10-2024 ambulatory Kylah Medina Facility:[facility] [place] [facility] Start: 08-28-2024 End: 08-28-2024 ambulatory Davie Vargas Facility:[facility] Start: 08-28-2024 End: 08-28-2024 Patient encounter procedure Davie Vargas [facility] [place] Start: 08-20-2024 End: 08-20-2024 Telephone encounter Shala Farrell MD Work Phone: [facility] 111 Start: 08-13-2024 End: 08-13-2024 ambulatory Nathaniel Bonilla MD Facility:[facility] [place] Start: 08-07-2024 End: 08-07-2024 ambulatory Kylah Medina Facility:[facility] [place] [facility] Start: 07-31-2024 End: 07-31-2024 ambulatory Kylah Medina Facility:[facility] [place] [facility] Start: 07-24-2024 End: 07-24-2024 ambulatory Kylah Medina Facility:[facility] [place] [facility] Start: 07-23-2024 ambulatory Davie Vargas Facilit y:[facility] [place] Start: 07-05-2024 ambulatory Kylah Medina Facility:[facility] [place] Start: 07-03-2024 End: 07-03-2024 ambulatory Kylah Medina Facility:[facility] Latasha hernández Start: 06-20-2024 End: 06-20-2024 ambulatory AXEL HERNÁNDEZ Not Available Start: 06-11-2024 End: 06-11-2024 ambulatory XXXX NONE Facility:[facility] Start: 06-11-2024 End: 06-11-2024 Patient encounter procedure Kashif Barnett [facility] Start: 05-30-2024 End: 05-30-2024 ambulatory Dixon Dubose Facility:[facility] Start: 05-30-2024 End: 05-30-2024 Patient encounter procedure Dixon Dubose [facility] Start: 05-21-2024 End: 05-21-2024 ambulatory MD Kashif Barnett Facility:[facility] Start: 05-21-2024 End: 05-21-2024 Patient encounter procedure Kashif Barnett [facility] Start: 05-03-2024 End: 05-03-2024 ambulatory MD Kylah Medina Facility:[facility] Latasha edgar Start: 05-01-2024 End: 05-01-2024 ambulatory MD Kashif Barnett Facility:[facility] Start: 05-01-2024 End: 05-01-2024 Patient encounter procedure Kashif Barnett [facility] Start: 05-01-2024 End: 05-01-2024 Lab Drop off Kylah Medina [facility] Start: 05-01-2024 End: 05-01-2024 ambulatory MD Kylah Medina Facility:[facility] Start: 04-20-2024 End: 04-20-2024 ambulatory MD Kashif Barnett Facility:[facility] Start: 04-20-2024 End: 04-20-2024 Patient encounter procedure Kashif Barnett [facility] Start: 04-04-2024 End: 04-04-2024 ambulatory AXEL HERNÁNDEZ Not Available Start: 03-26-2024 End: 03-26-2024 Admission to same day surgery center Axel Hernández [facility] Start: 03-26-2024 End: 03-26-2024 ambulatory Axel Hernández Facility:[facility] Start: 03-20-2024 End: 03-20-2024 ambulatory MD Kylah Medina Facility:[facility] Start: 03-08-2024 End: 03-08-2024 ambulatory MD Kylah Medina Facility:[facility] Start: 03-06-2024 End: 03-06-2024 ambulatory Axel Hernández Facility:[facility] Start: 03-06-2024 End: 03-06-2024 Patient encounter procedure Axel Hernández [facility] Start: 02-15-2024 End: 02-15-2024 ambulatory AXEL HERNÁNDEZ Not Available Start: 02-15-2024 End: 02-15-2024 ambulatory AXEL HERNÁNDEZ Not Available Start: 02-02-2024 End: 02-02-2024 ambulatory MD Kylah Medina Facility:[facility] her[facility] Start: 12-06-2023 End: 12-06-2023 ambulatory Jada Rene Other [facility] Other Start: 12-06-2023 Telephone encounter Jada Rene [facility] Kevin Start: 12-02-2023 End: 12-02-2023 ambulatory Jada Rene Other [facility] Other Start: 12-02-2023 Telephone encounter Jadamary Rene [facility] Medicine [place] Start: 12-01-2023 End: 12-01-2023 Lab Drop off Kylah Medina [facility] Start: 12-01-2023 End: 12-01-2023 ambulatory MD Kylah Medina Facility:[facility] Start: 12-01-2023 ambulatory MD Kylah Medina Facility :[facility] [place] Start: 11-18-2023 End: 11-18-2023 ambulatory Jada Rene Other [facility] Other Start: 11-18-2023 Office outpatient vi sit 25 minutes Jada Edgard [facility] [place] Start: 11-02-2023 End: 11-02-2023 ambulatory Jada Schumacher Rene [facility] Other Start: 11-02-2023 Office outpatient vi sit 25 minutes Jada Edgard [facility] [place] Start: 11-02-2023 Telephone encounter Jadamary Rene [facility] [place] Start: 10-28-2023 End: 10-28-2023 ambulatory Jadamary Rene Other [facility] Other Start: 10-28-2023 Telephone encounter Jadamary Rene [facility] [place] Start: 09-30-2023 End: 09-30-2023 Nurse Triage Venessa Riggins RN NURSE DIRECTOR OF TAX SERVICES Comment on above: Refill Request Start: 09-30-2023 Telephone encounter Jada Rene [facility] [place] Start: 09-21-2023 End: 09-21-2023 ambulatory Jadaendy Rene Other [facility] Other Start: 09-21-2023 Office outpatient vi sit 25 minutes Jada Rene [facility] [place] Start: 08-29-2023 End: 08-29-2023 ambulatory Jada Rene Other [facility] Other Start: 08-29-2023 Telephone encounter Jada Rene [facility] Kevin Start: 08-26-2023 End: 08-26-2023 ambulatory Jada Rene Other [facility] Other Start: 08-26-2023 Telephone encounter Jada Rene [facility] Start: 08-08-2023 End: 08-08-2023 ambulatory Jada Rene Other [facility] Other Start: 08-08-2023 Telephone encounter Jada Rene [facility] Start: 07-27-2023 End: 07-27-2023 ambulatory Jada Rene Other [facility] Other Start: 07-27-2023 Telephone encounter Jada Rene [facility] Start: 06-16-2023 End: 06-16-2023 ambulatory Jada Rene [facility] Other Start: 06-16-2023 Office outpatient ne w 45 minutes Jada Rene [facility] Start: 06-16-2023 Telephone encounter Jada Rene [facility] Procedures Date Procedure Procedure Detail Performing Clinician Start: 11-19-2024 [facility] CAPILLARY GLUCOSE POC Axel Hernández DO Work Phone: Start: 11-19-2024 Decompression of med carlos nerve Axel Hernández Start: 03-26-2024 Decompression of med carlos nerve Axel Hernández Decompression of med carlos nerve Axel Hernández Release of trigger finger Mi jacquie Hernández Surgery (qualifier value) Sa fariha Medina Plan of Treatment Date Care Activity Detail Author Start: 11-28-2024 End: 11-28-2024 Patient encounter procedure 11/28/2024 1:00 PM EST Office Visit [facility] [address] [place] [address] Jose L Thompson, [employer] ANALYST [address] [place] [address] [facility] Start: 10-03-2024 End: 10-03-2025 ECG 12 lead ECG 12 lead ECG Routine Pre-op testing Expected: 10/03/2024 (Approximate), Expires: 10/03/2025 [facility] Work Phone: Comment on above: Expected: 10/03/2024 (Approximate), Expires: 10/03/2025 Start: 10-03-2024 End: 10-03-2024 Patient encounter procedure 10/03/2024 10:45 AM EST Office Visit [facility] [address] [facility] [address] [place] [address] Axel Hernández, DO [address] [place] [address] Right hand pain (Primary Dx); Arm weakness [facility] Comment on above: Right hand pain (Holly ayaan Dx); Arm weakness Start: 07-15-2024 Influenza vaccination Influenza Vacc ine (#1) [facility] Start: 07-15-2023 Influenza vaccination Influenza Vacc ine (#1) [facility] Start: 11-14-2022 Advance Directive Discussion Advance Directive Discussion [facility] Start: 11-14-2022 Depression Assessment Depression Ass essment [facility] Start: 03-31-2016 Pneumococcal Vaccine : 65+ (2 - PPSV23 or PCV20) Pneumococcal Vaccine: 65+ (2 - PPSV23 or PCV20) [facility] Start: 03-31-2016 Pneumococcal Vaccine : 65+ Years (2 of 2 - PPSV23 or PCV20) Pneumococcal Vaccine: 65+ Years (2 of 2 - PPSV23 or PCV20) [facility] Start: 03-24-2016 Hepatitis B surface antibody level LDL Cholesterol [facility] Start: 09-24-2015 Hemoglobin A1c/Hemoglobin.total in Blood HbA1C [facility] Start: 08-01-2015 3 comp foot exam completed Diabetic Foot Exam [facility] Start: 07-25-2015 Hepatitis B screening Urine Albumin:Creatinine Ratio [facility] Start: 02-01-2015 Urine microalbumin profile DTaP,Tdap,Td Vaccine (1 - Tdap) [facility] Start: 10-24-2013 Shingrix Vaccine (2 of 3) Shingrix Vaccine (2 of 3) [facility] Start: 09-14-2012 Hepatitis C antibody , confirmatory test Dilated Retinal Exam [facility] Start: 2002 RSV Vaccine (1 - 1-d ose 60+ series) RSV Vaccine (1 - 1-dose 60+ series) [facility] Start: 1940 Covid-19 Vaccine (#1) Covid-19 Vacci ne (#1) [facility] Immunizations Immunization Date Immunization Notes Care Provider Fa [facility] 09-29-2024 influenza virus vaccine, unspecified formulation Axel Hernández DO Work Phone: [facility] 09-21-2023 Prevnar 20 Jada Edgard Other [facility] 08-19-2023 Flu Shot - Documentation Purposes Only Jada Rene Other [facility] Other 08-19-2023 influenza virus vaccine, unspecified formulation Kylah Medina [facility] 08-14-2022 influenza, seasonal, injectable Jadaendy Rene Other [facility] Other 03-31-2015 pneumococcal conjuga te vaccine, 13 valent Jada Edgard Other [facility] 08-02-2014 influenza, high dose seasonal, preservative-free Venessa Riggins RN [facility] 08-02-2014 influenza virus vaccine, unspecified formulation Venessa Riggins RN [facility] 08-29-2013 zoster vaccine, live Venessa Kassi terrell RN [facility] 08-09-2013 influenza virus vaccine, unspecified formulation Venessa Riggins RN [facility] 07-31-2012 influenza virus vaccine, unspecified formulation Venessa Riggins RN [facility] Work Phone: 03-07-2012 tetanus and diphther ia toxoids, adsorbed, preservative free, for adult use (2 Lf of tetanus toxoid and 2 Lf of diphtheria toxoid) Venessa Riggins RN [facility] Work Phone: 08-07-2011 influenza virus vaccine, unspecified formulation Venessa Riggins RN [facility] Work Phone: NEGATED: Highlighted row has not occurred!08-28-2024 influenza virus vaccine, unspecified formulation Davie Hudsonanahi [facility] [place] Payers Date Payer Category Payer Medicare (Managed Care) [employer] [id number] 2023 Unknown [employer] D [employer] [id number] 2023-Present [address] [place] [phone] [id number] [id number] 2023 Unknown [id number] 2.16.840.1.204381.19 2023 Medicare [id number] 2.16.840.1.883541.19 2023 Self-pay 2023 Medicare [id number]. 1.13.159. 2.7.3.154511.315 1942 Unknown [id number] 2.16.840.1.999227.3.579. 2. 1942 Unknown [id number] 2.16.840.1.460968.3.579. 2.72 1942 Unknown [id number] 2.16.840.1.313312.3.579. 2. 1942 Unknown [id number] 2.16.840.1.408261.3.579. 2. 1942 Unknown [id number] 2.16.840.1.843517.3.579. 2 1942 Unknown [id number] 2.840.1.815958.3.579. 2 1942 Unknown [id number] 2.16.840.1.215831.3.579. 2 1942 Unknown [id number] 2.16.840.1.541181.3.579. 2 1942 Unknown [id number] 2.16.840.1.810944.3.579. 2 1942 Unknown [id number] 2.16840.1.290145.3.579. 2 1942 Unknown [id number] 2.16.840.1.127084.3.579. 2. 1942 Unknown [id number] 2.16.840.1.831408.3.579. 2 1942 Unknown [id number] 2.16.840.1.775804.3.579. 2. 1942 Unknown [id number] 2.16.840.1.418292.3.579. 2 1942 Unknown [id number] 2.16.840.1.945823.3.579. 2.196 1942 Unknown [id number] 2.16.840.1.587456.3.579. 2.1258 1942 Unknown [id number] 2.16.840.1.095428.3.579. 2.1258 1942 Unknown [id number] 2.16.840.1.611161.3.579. 2.1258 1942 Unknown [id number] 2.16.840.1.180196.3.579. 2.1258 1942 Unknown [id number] 2.16.840.1.862453.3.579. 2.1258 1942 Unknown [id number] 2.16.840.1.786514.3.579. 2.1258 1942 Unknown [id number] 2.16.840.1.698867.3.579. 2.1258 1942 Unknown [id number] 2.16.840.1.592830.3.579. 2. 1942 Unknown [id number] 2.16.840.1.773276.3.579. 2. 1942 Unknown [id number] 2.16.840.1.658258.3.579. 2. 1942 Unknown [id number] 2.16.840.1.844145.3.579. 2. 1942 Unknown [id number] 2.16.840.1.260768.3.579. 2. 1942 Unknown [id number] 2.16.840.1.217235.3.579. 2. 1942 Unknown [id number] 2.16.840.1.009018.3.579. 2. 1942 Unknown [id number] 2.16.840.1.334003.3.579. 2.727 1942 Unknown [id number] 2.16.840.1.964046.3.579. 2.727 1942 Unknown [id number] 2.16.840.1.726042.3.579. 2.727 1942 Unknown [id number] 2.16.840.1.318042.3.579. 2.72 1942 Unknown [id number] 2.16.840.1.063345.3.579. 2.727 1942 Unknown [id number] 2.16.840.1.469106.3.579. 2.72 1942 Unknown [id number] 2.16.840.1.700532.3.579. 2.727 1942 Unknown [id number] 2.16.840.1.409143.3.579. 2.727 Medicare [id number] 2.16.840.1.455069.19 Unknown [id number] 2.16.840.1.719675.3.579. 2.531 Unknown [id number] 2.16.840.1.886189.3.579. 2.531 Social History Date Type Detail Facility Start: 06-20-2024 End: 10-03-2024 Sex Assigned At [facility] Start: 12-01-2023 End: 11-01-2024 Tobacco smoking status ILIS Never smoked tobacco [facility] Start: 06-28-2022 Alcohol intake Current drinke r of alcohol (finding) [facility] Start: 06-28-2022 End: 10-03-2024 Alcohol intake [facility] Start: 1940 Sex Assigned At Not on file [facility] Tobacco smoking status Never [facility] Start: 02-15-2024 Tobacco use and exposure Smokeless tobacco non-user [facility] Medical Equipment Procedure Code Equipment Code Equipment Origin al Text Equipment Identifier Dates Test blood sugar(s) 2 times daily. Dx: non. Insulin: No dx 250.00 Start: 08-24-2013 Comment on above: Test blood sugar(s) 2 times daily. Dx: non. Insulin: No dx 250.00 Functional Status Date Assessment Result Facility 10-30-2024 Functional Status No [facility] 08-28-2024 Functional Status N/A [facility] [place] 06-11-2024 Functional Status N/A [facility] 05-30-2024 Functional Status No [facility] 04-20-2024 Functional Status N/A [facility] 03-06-2024 Functional Status No [facility] Clinical Notes 03-10-2010 to 11-19-2024 Note Date & Type Note Facility 11-19-2024 Evaluation + Plan note Extrac bijal from: Title:ANES Post-operative Note---General Author: Chau Lou MD Date:11/19/24 Plan Transfer/Discharge: Transfer/Discharge Discharge when meets criteria ( To home ). Extracted from: Title:ANES Pre-operative Note 2022 Author:Chau Goode Date:11/19/24 Plan [place] [employer] Anesthesiologists (ASA) physical status classification: Class III. Anesthetic Preoperative Plan: Anesthesia General. Future Appointments Appointment Date:12/12/2024 10:15:00 AM Scheduled Provider:Dixon Dubose PA-C [facility] Type:Cardiology Follow Up (FT) Appointment Date:05/02/2025 08:00:00 AM Scheduled Provider: Location:[facility] Appointment Type:FM Medicare Wellness Subsequent Future Scheduled Tests Laboratory* Basic Metabolic Panel 11/13/[address] [facility] [id number] Hospital Discharge instructions Patient Education 11/12/2024 12:08:21 Hernández - Carpal Tunnel Release Instructions (Custom) (CUSTOM) [place], [place] [facility] CARPAL TUNNEL RELEASE INSTRUCTIONS [...] after surgery. At this time the incision willbe checked and have sutures removed. Advil, Aleve, [...] tenderness to resolve. Weakness to resolve The pins and needles to resolve. Patient SignatureAxel Hernández, [facility] [address] [place] [address] [phone] Reviewed: 04-2211/19/2024 13:10:26 Post Op Patient Instructions - FT (Custom) (CUSTOM) Follow Up Care 10/03/2024 14:28:43 With:GORDO Weller Address: [address] [place] [address]- Business (1) When:11/28/2024 13:00:00 Comments:Keep scheduled appointment. Call for any problems. [facility] 12-30-2024 NotePatient Education - Text [place], [place] [facility] CARPAL TUNNEL RELEASE INSTRUCTIONS [...] after surgery. At this time the incision willbe checked and have sutures removed. Advil, Aleve, [...] Patient Signature Axel Hernández, DO [facility] [address] [place], [place] [id number] Reviewed: 04-22[facility]12-30-2024 NoteNurse Consultation Note Reason for Visit Pt presents today for [...] Daily, 1 refills fluticasone Nasal 0.05 mg/inh [place], See Instructions, Self Directed gabapentin 300 mg [...] 03/31/2015 Recorded influenza virus vaccine, inactivated 08/02/2014 [facility] History of Present illness Narrative* Shala Farrell MD - 09/28/2024 9:30 AM EST [facility] Patient: Dariel Zabala [address], [address] , Sex: 1940, Male [place] [id number] Height: 180 cm Ref Phys: Hernández fax [...] Amp Neg Dur (ms) Site1 Site2 Delta-0 (ms)Dist (cm) Sourav (m/s) Norm Sourav (m/s) Left [...] Sourav (m/s) Norm Sourav (m/s) Left Median Palmar [...] Doub=doublet; Fasc=fasciculation; FFE=full for effort; Fib=fibrillation; Myokym=myokymia; [place]=myotonic potential; N,0=normal; NR=no response; Polyph=polyphasia; Pos=positive [sharp] wave; RFU=rapidly firing units; Serr =serrated potential (2<phases<5); W&W=waxing and waning pattern INTERPRETATION: This study reveals ENMG evidence of chronic, neuropathic, axonal, 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 These are of severe degree on the L and moderate degree on the R by electrical criteria. A similar lesion affects the L ulnar nerve at the wrist (Guyon's canal), of mild degree. Nightly splint use was reinforced to the patient for prophylaxis. Should surgery be contemplated, afollow-up study 6 months afterward, limited to the median nerves, would be beneficial in establishing a new baseline. There is no suggestion by this study of more proximal lesions e.g. radiculopathy, nor of more widespread processes e.g. peripheral neuropathy or mononeuritis multiplex. A previous ENMG study is no longer available for comparison. Shala Farrell M.D. Diplomate, [place] [employer] of Psychiatry and Neurology (neurology, epilepsy, sleep medicine) Diplomate, [place] Board of Clinical Neurophysiology Diplomate, [place] Board of Preventive Medicine (clinical informatics) . documented in this [facility]10-07-2024 Telephone encounter Note* Telephone Encounter - Miguel Moe - 08/20/2024 10:50 AM EDT LVM to RC in regard to BUE referral from Dr. Hernández--Approved to schedule-- co-pay will be applied to toward OOP. [id number] Miscellaneous Notes* Telephone Encounter - Miguel Moe - 08/20/2024 10:50 AM EDT LVM to NESTOR in regard to BUE referral from Dr. Hernández--Approved to schedule--25.00 co-pay will be applied to toward OOP. documented in this [facility]06-18-2024 NoteEchocardiology Procedure Exam Date/Time Accession # Ordering Echo Transthoracic 05/01/2024 15:00 EDT [id number] Kashif Barnett MD Complete CPT code 21820 49997 Reason for Exam (Echo Transthoracic Complete) AFIB, Syncope R55;Other (please specify) Report Version: 1 Study ID: [id number] [facility] [address] [place] [address] Adult Echocardiogram Report Name: DARIEL ZABALA Study Date: 05/01/2024, 2: 02 PM Patient Location: [facility] : 1940 (MM/DD/YYYY) Gender: Male Age: 84 [...] Signed by: Jason Vaughn MD Transcribed by: [facility] Technologist: [facility]05-13-2024 Hospital Discharge instructions Patient Education 03/26/2024 14:02:11 [...] condition: Doing activities that require a strong tool repairer bench. Having rheumatoid arthritis, gout, or diabetes. Being [...] told by your health care provider. Use theheat source that your health care provider recommends, [...] splint on your hand. General instructions Take gyin-bht-gmoycxb and prescription medicines only as told by [...] provider. Document Revised: 03/17/2020 Document Reviewed: 03/17/2020 [employer] Patient Education 2022 [employer] Follow Up Care 03/01/2024 15:40:29 With:GORDO Weller Address: [address] [place], [place] [id number] [facility] (1) When:04/04/2024 10:15:00 Comments:Keep scheduled appointment [facility]05-07-2024 Note [id number]-18-[facility] Evaluation note* Encounter Date Diagnosis Assessment Notes Treatment Notes Treatment Clinical Notes Nov, Anticoagulant long-term use (ICD-10 - Z79.01) Discussed risks of NSAID use with anticoagulation, will discontinue meloxicam at this point Nov, Atrial fibrillation (ICD-10 - I48.91) Atenolol increased to BID, appears to be in NSR on exam today. Will continue Nov, Influenza A (ICD-10 - J10.1) Completed course of tamiflu, recovered well from influenza Nov, Chronic hyponatremia (ICD-10 - E87.1) Will continue sodium chloride supplementation, will plan to recheck sodium level at upcoming appt in January [facility] Other 12-20-2023 Evaluation note* Encounter Date Diagnosis [...] further dizziness symptoms would recommend f/u with senior radiation therapist as well. [facility] Other 11-17-2023 Evaluation note* Encounter Date Diagnosis Assessment Notes Treatment Notes Treatment Clinical Notes Sep, Type 2 diabetes mellitus (ICD-10 - E11.9) [facility] Other 11-17-2023 Miscellaneous Notes* Telephone Encounter - Venessa Riggins RN - 09/30/2023 12:29 PM EST Called patient back and reviewed plan from his call with Nurse Service Girl at 11:36 AM. See my note Patient already called his PCP as advise and waiting call back for scheduling. He was hospital discharged on 08/26 for cognitive problems and low sodium. He finished his pills for low sodium today. NOC closing was given [facility] with [facility]rology as soon [...] have any questions, you can call Nurse information clerk brokerage back. * Telephone Encounter - Venessa Riggins RN - 09/30/2023 11:36 AM EST Patient calling with request for physician referral: Patient referred to nephrology and primary care Department. Patient denies any new or worsening symptoms of which a provider is not aware: Yes. Patient was discharged from [facility] on 08/26 for low sodium and [...] none PCP luis appt. [facility] and then call dropped. My [employer] and [employer] lost connection. NOC closing was given GO TO THE EMERGENCY ROOM OR CALL 911 IF: * You develop any new symptoms * Your condition worsens * You are concerned or anxious about your condition for any other reason. If you have any questions, you can call Nurse information clerk brokerage back. [facility]* Encounter Date Diagnosis Assessment Notes Treatment Notes Treatment Clinical Notes Sep, Hyponatremia (ICD-10 - E87.1) Recent sodium 136 at low end of normal, given significance of symptoms and recommendation of hospital for f/u will refer to nephrology patient requesting [place] Sep, Anticoagulant long-term use (ICD-10 - Z79.01) Follows with INR clinic through [facility]. Sep, Atrial fibrillation (ICD-10 - I48.91) Appears in NSR today, anticoagulated on Warfarin Sep, Hypothyroidism (ICD-10 - E03.9) Recent TFTs in normal range, clinically euthyroid, continue current dose of LT4 Sep, Type 2 diabetes mellitus (ICD-10 - E11.9) Recent a1c in good range at 5.6%, continue current dose of glimepiride. Sep, Immunization due (ICD-10 - Z23) [facility] Other 10-16-2023 Evaluation note* Encounter Date Diagnosis Assessment Notes Treatment Notes Treatment Clinical Notes Aug, Hyponatremia (ICD-10 - E87.1) [facility] Other 08-03-2023 Evaluation note* Encounter Date Diagnosis Assessment Notes Treatment Notes Treatment Clinical Notes Jun, Atrial fibrillation (ICD-10 - I48.91) Rate controlled, mild bradycardia but asymptomatic. Will continue current dose of atenolol. He is anticoagulated on Coumadin with goal INR 2-3, he is due for INR check. 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 Recommend daily use of lotion Jun, Hypothyroidism (ICD-10 - E03.9) Due for TFTs prior to next visit Jun, Type 2 diabetes mellitus (ICD-10 - E11.9) Due for a1c prior to next visit Jun, BPH (benign prostatic hyperplasia) (ICD-10 - N40.0) [facility] Other 08-03-2023 Reason for referral (narrative)* Reason Medication managemen t through [facility] - Coumadin management with INR goal 2-3 Diagnosis 1 Anticoagulant long-t erm use (Z79.01) Referral Organization [facility] Rodo Brown Referring Provider First Name Jada Referring Provider Last Name [facility] Referring Provider Specialty [facility] Referred Organization [facility] Referred Address [address], [place],[address] Referred Provider Specialty Milvia felix Referral Priority Routine General Notes Gabrielle Reid 01/2023 01:34:29 PM >this is an order not a referral, clinical informed and will fax order over for standing order INR to [facility] Reason * FU 06/29 CALL he aring loss, issue with hearing aids Diagnosis 1 Hearing loss (H91.90 ) Referral Organization [facility] Rodo Brown Referring Provider First Name Jada Referring Provider Last Name [facility] Referring Provider Specialty [facility] Referred Organization [facility] Referred Address ,[place], [place],[address] Referred Provider Specialty Audiologists Referral Priority Routine General Notes Gabrielle Reid 01/2023 01:28:34 PM >referral received and faxed [facility] Other 04-27-2010 History of Past illness Narrative* Problem Noted Date Diagnosed Date Resolved Date Myalgia 03/10/2010 03/01/2011 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 and other lower urinary tract symptoms (LUTS) 08/11/2006 01/11/2013 Elevated prostate specific antigen (PSA) 03/07/2012 documented as of this encounter (statuses as of 09/30/2023) [facility] No data available for this section [facility] Future Appointments Appointment Date:03/08/2024 01:00:00 PM Scheduled Provider:Kylah Medina MD Location:[facility] Appointment Type: Open Appointment Date:03/26/2024 01:45:00 PM Scheduled Provider: Location:[facility] Appointment Type:Surgery FT Appointment Date:05/01/2024 09:00:00 AM Scheduled Provider: Location:[facility] Appointment Type: Lab Draw Appointment Date:05/03/2024 08:00:00 AM Scheduled Provider: Location:[facility] Appointment Type: Medicare Wellness Subsequent Appointment Date:05/03/2024 09:00:00 AM Scheduled Provider:Kylah Medina MD Location:[facility] Appointment Type: Open Future Scheduled Tests Laboratory* PSA Screen, Total 02/02/24 * CBC w/ Auto Diff 02/02/24 * Comprehensive Metabolic Panel 02/02/24 * Lipid Panel 02/02/[address] [facility] Future Appointments Appointment Date:05/01/2024 09:00:00 AM Scheduled Provider: Location:[facility] Appointment Type:FM Lab Draw Appointment Date:05/03/2024 08:00:00 AM Scheduled Provider: Location:[facility] Appointment Type: Medicare Wellness Subsequent Appointment Date:05/03/2024 09:00:00 AM Scheduled Provider:Kylah Medina MD Location:[facility] Appointment Type: Open Future Scheduled Tests Laboratory* PSA Screen, Total 02/02/24 * CBC w/ Auto Diff 02/02/24 * Comprehensive Metabolic Panel 02/02/24 * Lipid Panel 02/02/[address] [facility] Future Appointments Appointment Date:05/01/2024 09:00:00 AM Scheduled Provider: Location:[facility] Appointment Type:FM Lab Draw Appointment Date:05/03/2024 08:00:00 AM Scheduled Provider: Location:[facility] Appointment Type: Medicare Wellness Subsequent Appointment Date:05/03/2024 09:00:00 AM Scheduled Provider:Kylah Medina MD Location:[facility] Appointment Type: Open Appointment Date:05/25/2024 01:00:00 PM Scheduled Provider:Kashif Barnett MD [facility] Type:Cardiology Follow Up (FT) Future Scheduled Tests Laboratory* PSA Screen, Total 02/02/24 * CBC w/ Auto Diff 02/02/24 * Comprehensive Metabolic Panel 02/02/24 * Lipid Panel 02/02/24 Radiology* Echo Transthoracic Complete 04/20/[address] [facility] Future Appointments Appointment Date:05/03/2024 08:00:00 AM Scheduled Provider: Location:[facility] Appointment Type:FM Medicare Wellness Subsequent Appointment Date:05/03/2024 09:00:00 AM Scheduled Provider:Kylah Medina MD Location:[facility] Appointment Type:FM Open Appointment Date:05/21/2024 10:00:00 AM Scheduled Provider: [facility] Type:CV Holter/Event (FT) Appointment Date:05/25/2024 01:00:00 PM Scheduled Provider:Kashif Barnett MD [facility] Type:Cardiology Follow Up (FT) [facility] Future Appointments Appointment Date:05/30/2024 03:45:00 PM Scheduled Provider:Kashif Barnett MD [facility] Type:Cardiology Follow Up (FT) Appointment Date:11/01/2024 09:15:00 AM Scheduled Provider:Kylah Medina MD Location:[facility] Appointment Type: Open Appointment Date:05/02/2025 08:00:00 AM Scheduled Provider: Location:[facility] Appointment Type: Medicare Wellness Subsequent [facility] Future Appointments Appointment Date:08/31/2024 01:00:00 PM Scheduled Provider:Kashif Barnett [facility] Type:Cardiology Follow Up (FT) Appointment Date:11/01/2024 09:15:00 AM Scheduled Provider:Kylah Medina [facility]: Open Appointment Date:05/02/2025 08:00:00 AM Scheduled Provider: Location:[facility] Appointment Type: Medicare Wellness [facility] Future Appointments Appointment Date:11/01/2024 09:15:00 AM Scheduled Provider:Kylah Medina MD Location:[facility] Appointment Type:FM Open Appointment Date:12/11/2024 01:00:00 PM Scheduled Provider:Dixon Dubose PA-C [facility] Type:Cardiology Follow Up (FT) Appointment Date:05/02/2025 08:00:00 AM Scheduled Provider: Location:[facility] Appointment Type: Medicare Wellness [facility] evaluation + Plan note Future Appointments Appointment Date:11/01/2024 09:15:00 AM Scheduled Provider:Kylah Medina MD Location:[facility] Appointment Type:FM Open Appointment Date:11/19/2024 02:15:00 PM Scheduled Provider: Location:[facility] Appointment Type:Surgery FT Appointment Date:12/12/2024 10:15:00 AM Scheduled Provider:Dixon Dubose PA-C [facility] Type:Cardiology Follow Up (FT) Appointment Date:05/02/2025 08:00:00 AM Scheduled Provider: Location:[facility] Appointment Type:FM Medicare Wellness [facility] evaluation + Plan note Future Appointments Appointment Date:11/19/2024 02:15:00 PM Scheduled Provider: Location:[facility] Appointment Type:Surgery FT Appointment Date:12/12/2024 10:15:00 AM Scheduled Provider:Dixon Dubose PA-C [facility] Type:Cardiology Follow Up (FT) Appointment Date:05/02/2025 08:00:00 AM Scheduled Provider: Location:[facility] Appointment Type:FM Medicare Wellness Subsequent [facility] evaluzanaf noteNo [facility] [email or web address] Other Evhclation note* Diagnosis Pain in both upper extremities- [...] History MAU cataract Hospitalization History see above [facility] Other Hisaggt general Narrative - Reported* Type Description Date Medical History type 2 diabetes Medical History hypothyroid Medical History Afib Surgical History multiple neck sx Surgical History tonsillectomy Surgical History adenoidectomy Surgical History MAU cataract Hospitalization History see above [facility] Other Hiskjfj general Narrative - Reported* Type Description Date Medical History type 2 diabetes Medical History hypothyroid Medical History Afib Surgical History multiple neck sx Surgical History tonsillectomy Surgical History adenoidectomy Surgical History MAU cataract Hospitalization History see above [facility] [place]--Influe nza A, hyponatremia, paroxysmal afib, altered mental status, type 2 DM, generalized weakness hypomagnesiema, RADHA 11/13/23-11/15/23 [facility] Other Hospital Discharge instructions No data available for this section [facility] No data available for this section [facility] Summary Purpose Family History No [...] Found No data available for this section Advance Directives No Advanced Directives Records FoundNo [...] hospitalization for symptomatic hyponatremia, [facility] [place] [address] Lara ph [phone], fax [phone] Diagnosis 1 Hyponatremia (E87.1) Referral Organization [facility] Referring Provider First Name Jada Referring Provider Last Name [facility] Referring Provider Specialty [facility] Referred Organization [facility] Referred Provider Romeo Lara Referred Address [address] [place], [place],[address] Referred Provider Specialty Internal Med icine Referral Priority Routine General Notes Gabrielle Reid 06/2023 01:35:25 PM > referral received and faxed Clinical Notes [facility] [place] [address] Lara ph [phone], fax [phone] Reason hyponatremia, recent hospitalization [facility] for hyponat[facility] Diagnosis 1 Hyponatremia (E87.1) Referral Organization [facility] Kevin Referring Provider First Name Jada Referring Provider Last Name [facility] Referring Provider Specialty [facility] Referred Organization [facility] Referred Address [address] [place], [place],[address] Referred Provider Specialty Nephrology Referral Priority Routine [...] section and content) DATE CREATED AUTHOR 06/03/2020 [facility] DATE CREATED AUTHOR AUTHOR'S ORGANIZ ATION 11/10/2023 [facility] DATE CREATED AUTHOR AUTHOR'S ORGANIZ ATION 05/03/2024 [facility] DATE CREATED AUTHOR AUTHOR'S ORGANIZ ATION 07/01/2024 [facility] DATE CREATED AUTHOR AUTHOR'S ORGANIZ ATION 08/17/2024 [facility] DATE CREATED AUTHOR AUTHOR'S ORGANIZ ATION 10/06/2024 [facility] DATE CREATED AUTHOR AUTHOR'S ORGANIZ ATION 11/02/2024 [facility] DATE CREATED AUTHOR AUTHOR'S ORGANIZ ATION 11/13/2024 [facility] DATE CREATED AUTHOR AUTHOR'S ORGANIZ ATION 11/14/2024 [facility] REASON FOR VISIT (unrecogniz ed [...] prosecute any alcohol or drug abuse patient.[facility] Patient Care team informatio n (unrecognized section and content) Personnel Name: Kylah Medina MD Address: Address: [facility]. [address] Agency Service Coordinator Relationship Specialty Start Date End Date Kylah Medina MD PCP - General Family Medicine 02/03/24 Agency Service Coordinator Relationship Specialty Start Date End Date Kylah Medina MD PCP - General Family Medicine 02/03/24 Agency Service Coordinator Relationship Specialty Start Date End Date Kylah Medina MD PCP - General Family Medicine 02/03/24 Agency Service Coordinator Relationship Specialty Start Date End Date Kylah Medina MD PCP - General Family Medicine 02/03/24 Agency Service Coordinator Relationship Specialty Start Date End Date Kylah [...] BE BASED ON THE PRIMARY CLINICAL RECORDS. [facility] [email or web address] [facility]. provides no warranty or guarantee of the accuracy or completeness of information in this document.
--- NOTE | 2024-11-23 17:54 | PC.NURSE ---
Patient believes hearing aid battery is stuck in right ear, unable to see anything, patient denies pain.
--- NOTE | 2024-11-23 18:55 | ED_ITS ---
HPI HPI - General Adult General Chief complaint: Recheck/Abnormal Lab/Rx Stated complaint: PART OF HEARING AIDE IN EAR Time Seen by Provider: 11/23/24 17:45 Source: patient Mode of arrival: walk-in History of Present Illness HPI narrative: Patient is a 84-year-old male who has a small button battery right ear. Patient has a hearing aid in both of his years. Patient had the small button battery that sits in his hearing aid that had fallen out from the hearing aid when patient was trying to put it in his right ear. Patient believes the button battery is in the right ear canal. He has no pain. Patient is hard of hearing, patient did drive to the ER. Patient can hear when you speak loud. No bleeding, no pain, no other acute complaints at this time. Patient has his other hearing aid to show me what the small silver button battery looks like that is stuck in his ear, it is metal, it does get attracted to a magnet. Patient said that he did try a few times to see if he could get the button battery out of his ear and he was not successful. All systems are negative except as noted/marked. All systems reviewed and otherwise negative. Nurses note and vital signs reviewed and patient is not hypoxic. General: The patient appears well and in no apparent distress. Patient is resting comfortably on cart. Patient is not toxic, lethargic, or listless Skin: Warm, dry, no pallor noted. There is no rash noted. No petechiae, purpura. Head: Normocephalic, atraumatic Eye: Normal conjunctiva, no drainage, EOMI. PERRL. Patient does have a small button battery that is obstructing the right auditory canal. The button battery is vertical, sitting perfectly in the ear canal vertically and there is no space around the button battery. It is approximately in the distal third of the right auditory canal. Ears, Nose, Mouth, and Throat: oral mucosa is moist. Nares patent. Mouth without vesicles. Cardiovascular: Regular Rate and Rhythm, no murmur, gallop, rub Respiratory: Patient is in no distress, no accessory muscle use, lungs are clear to auscultation, no wheezing, rales or rhonchi Back: non-tender, GI: Soft, no tenderness Musculoskeletal: Patient has full range of motion of all of the extremities, no motor, sensory, or focal neurological deficits Neurological: A&O x4, normal speech, hard of hearing, but if you speak very loudly can hear you. Psychiatric: Cooperative Related Data Home Medications ?Medication ?Instructions ?Recorded ?Confirmed glimepiride 2 mg tablet 2 mg PO DAILY 08/21/23 03/10/24 levothyroxine 25 mcg tablet 25 mcg PO QAM 08/21/23 03/10/24 pravastatin 40 mg tablet 40 mg PO DAILY 08/21/23 03/10/24 sildenafil 100 mg tablet 100 mg PO DAILY PRN sexual activity 08/21/23 03/10/24 tamsulosin 0.4 mg capsule 0.4 mg PO DAILY 08/21/23 03/10/24 warfarin 5 mg tablet (Jantoven) 5 mg PO MOWEFR 08/21/23 03/10/24 warfarin 2.5 mg tablet (Jantoven) 2.5 mg PO .4 days a week 08/22/23 03/10/24 finasteride 5 mg tablet 5 mg PO .qd 11/13/23 03/10/24 TUMERIC 08/13/24 coenzyme Q10 100 mg capsule (Co 100 mg PO DAILY 08/13/24 08/13/24 Q-10) cyclobenzaprine 10 mg tablet 10 mg PO TID PRN muscle spasm 08/13/24 08/13/24 gabapentin 300 mg capsule mg 08/13/24 vitamin B complex (B-Complex 1 tab PO DAILY 08/13/24 08/13/24 tablet) Previous Rx's ?Medication ?Instructions ?Recorded atenolol 25 mg tablet 25 mg PO BID #60 tabs 11/15/23 sodium chloride 1,000 mg soluble 1,000 mg PO TID #90 tabs 11/15/23 tablet Allergies Allergy/AdvReac Type Severity Reaction Status Date / Time No Known Drug Allergies Allergy Verified 11/23/24 17:45 Opioid HPI Opioid Management Most Recent Opioid Data: Last Pain Scale 5 11/22/24 18:32 11/22/24 Ur Phencyclidine Scrn Negative (NEGATIVE) 08/21/23 03:22 10/0 07/06 [facility] Medical History (Updated 11/23/24 @ 18:55 by Jonah Pacheco MD) Hyponatremia ?E87.1 - Hypo-osmolality and hyponatremia (ICD-10) Hypomagnesemia ?E83.42 - Hypomagnesemia (ICD-10) RADHA (acute kidney injury) ?N17.9 - Acute kidney failure, unspecified (ICD-10) Paroxysmal atrial fibrillation ?I48.0 - Paroxysmal atrial fibrillation (ICD-10) Type 2 diabetes mellitus with hyperglycemia ?E11.65 - Type 2 diabetes mellitus with hyperglycemia (ICD-10) Influenza ?J11.1 - Influenza due to unidentified influenza virus with other respiratory manifestations (ICD-10) Hypomagnesemia ?E83.42 - Hypomagnesemia (ICD-10) Acute hyponatremia ?E87.1 - Hypo-osmolality and hyponatremia (ICD-10) Acute confusion ?R41.0 - Disorientation, unspecified (ICD-10) Diabetes ?E11.9 - Type 2 diabetes mellitus without complications (ICD-10) High cholesterol ?E78.00 - Pure hypercholesterolemia, unspecified (ICD-10) Atrial fibrillation ?I48.91 - Unspecified atrial fibrillation (ICD-10) Family History Father Family history of myocardial infarction Family history of hypertension Mother Family history of cancer Family history of diabetes mellitus Social History Within the past year, how often did you have a drink containing alcohol: 2-4 times a month Smoking status: Never smoker Highest level of school completed/degree received: high school graduate Little interest or pleasure in doing things: not at all Feeling down, depressed, or hopeless: not at all Gender Identity: male Exam Constitutional Vital Signs, click to edit/add: Last Vital Signs Temp 97.6 F 11/23/24 17:47 Pulse 75 11/23/24 17:47 Resp 20 11/23/24 17:47 BP 192/98 H 11/23/24 17:47 Pulse Ox 98 11/23/24 17:47 O2 Del Method Room Air 11/23/24 17:47 Course Vital Signs Vital signs: Vital Signs Temperature 97.6 F 11/23/24 17:47 Pulse Rate 75 11/23/24 17:47 Respiratory Rate 20 11/23/24 17:47 Blood Pressure 192/98 H 11/23/24 17:47 Pulse Oximetry 98 11/23/24 17:47 Oxygen Delivery Method Room Air 11/23/24 17:47 Temperature 97.6 F 11/23/24 17:47 Pulse Rate 75 11/23/24 17:47 Respiratory Rate 20 11/23/24 17:47 Blood Pressure 192/98 H 11/23/24 17:47 Pulse Oximetry 98 11/23/24 17:47 Oxygen Delivery Method Room Air 11/23/24 17:47 Medical Decision Making MDM Narrative Medical decision making narrative: Procedure note: Right ear foreign body With a larger tetlin magnet that we used for pacers and defibrillators, I did have this to the outside of his right auditory canal to see if it would attract the button battery or magnet, and it did not. I did using her suction and then Beatty suction to try and suction the battery out without success, I did not p ush it further into the ear canal. I then tried a very small magnet that was the end of a screwdriver the, the magnet was very weak, that was not able to remove the battery. I also try to see if I could slide a Sales extractor past the outside of the vertical obstructing right small button battery. That was not successful. I did not push the battery any further into the auditory canal by using the Sales extractor or the other processes, the position of the button battery has not changed. Patient understands that he can follow-up with ENT. Instructions on what to tell the secretary receptionist when he calls ENT office were written down for him as patient requested. Patient will return back to the ER if any other acute concerns, patient will call ENT on Tuesday. He has no pain, no other acute complications with the plan better at this time. Discharge Plan Discharge Chief Complaint: Recheck/Abnormal Lab/Rx Clinical Impression: Foreign body in right ear Patient Disposition: Home, Self-Care Time of Disposition Decision: 18:50 Condition: Fair Prescriptions / Home Meds: No Action glimepiride 2 mg tablet 2 mg PO DAILY levothyroxine 25 mcg tablet 25 mcg PO QAM pravastatin 40 mg tablet 40 mg PO DAILY sildenafil 100 mg tablet 100 mg PO DAILY PRN (Reason: sexual activity) tamsulosin 0.4 mg capsule 0.4 mg PO DAILY warfarin [Jantoven] 5 mg tablet 5 mg PO MOWEFR Rx Instructions: takes on tuesday, and tue per [facility] warfarin [Jantoven] 2.5 mg tablet 2.5 mg PO .4 days a week Rx Instructions: Takes on Tuesday, , and sat per coumadin clinic finasteride 5 mg tablet 5 mg PO .qd sodium chloride 1,000 mg Tablet,Soluble 1,000 mg PO TID Qty: 90 0RF atenolol 25 mg Tablet 25 mg PO BID Qty: 60 0RF gabapentin 300 mg capsule coenzyme Q10 [Co Q-10] 100 mg capsule 100 mg PO DAILY vitamin B complex [B-Complex] Tablet 1 tab PO DAILY TUMERIC cyclobenzaprine 10 mg tablet 10 mg PO TID PRN (Reason: muscle spasm) Print Language: Mexican Additional Instructions: Call ENT on Tuesday, Dr. James office. When you call the office, tell them you are in the ER on Tuesday, they tried few attempts of a large magnet and suction and were not able to get the battery out of your ear. You still have a button battery in your right ear. Referrals: KYLAH GARCIA [Primary Care Provider] - 1 week Discharge Date/Time: 11/23/24 19:04
== END 2024-11-23 19:04 | disposition home or self-care (01) ==
PROVIDERS: Emergency Provider Emergency Medicine; PCP Family Medicine
DX: T16.1XXA Foreign body in right ear, initial encounter (principal); W44.A9XA Other batteries entering into or through a natural orifice, initial encounter
CPT/HCPCS: 99281

== ENCOUNTER 2024-12-14 03:16 | Observation (INO) | payer OTHER, SELFPAY ==
[2024-12-14] VITALS (35 sets, daily range): BP systolic 117–157; BP diastolic 54–76; PULSE 51–78; TEMP 36.4–36.7; O2SAT 81–99; BMI 31.0; BMI 22.8
--- NOTE | 2024-12-14 03:23 | ECG_ITS ---
The [facility] Test Date: 2024-12-14 Pat Name: INDIANA ZABALA Department: Room: - Gender: Male [employer]: : 1940 Requested By: KYLAH GARCIA Order Number: [id number] Reading MD: AMBAR EID Measurements Intervals [place] Rate: 74 P: -60928 [place]: -64728 QRS: 78 QRSD: 96 T: 28 QT: 412 QTc: 440 Interpretive Statements 1210 Atrial fibrillation 8101 Low QRS voltage in limb leads 9140 abnormal rhythm ECG Compared to ECG 03/10/2024 13:25:18 Low QRS voltage now present Electronically Signed On 12-17-2024 13:30:29 EST by AMBAR EID
--- NOTE | 2024-12-14 03:24 | XR_ITS ---
The [address] [address] Patient Name: INDIANA ZABALA MRN: [id number] date: 1940 Sex: M Assigned Patient Location: ED.MAIN Current Patient Location: ER Accession/Order Number: [id number] Exam Date: 12/14/2024 04:15 Report Date: 12/14/2024 04:35 At the request of: ROBERT BERNAL Procedure: XR chest 1V EXAM: XR chest 1V HISTORY: Altered mental status COMPARISON: Chest radiograph dated 03/10/2024. TECHNIQUE: One view of the chest was obtained. FINDINGS: ACDF hardware is partially imaged. The cardiac silhouette is stable in size. The lungs are clear. There is no significant pneumothorax. There are trace pleural effusions. No acute osseous abnormality is seen. XR/XR chest 1V IMPRESSION: 1. Stable enlarged cardiac silhouette with trace pleural effusions. Electronically authenticated by: Kelli LIMA Date: 12/14/2024 04:35
--- NOTE | 2024-12-14 03:24 | CT_ITS ---
The [address] [address] Patient Name: INDIANA ZABALA MRN: [id number] date: 1940 Sex: M Assigned Patient Location: ED.MAIN Current Patient Location: Accession/Order Number: [id number] Exam Date: 12/14/2024 04:15 Report Date: 12/14/2024 04:34 At the request of: ROBERT BERNAL Procedure: CT head/brain wo con EXAM: CT head/brain wo con INDICATION: 84 years old; Male. Change in mental status. TECHNIQUE: CT Head (ax/cor/sag reformats). Ionizing radiation dose reduced via iterative reconstruction/FBP blend and body size kV/mA adjustment. Comparison: Head CT dated 03/10/2024. FINDINGS: POSTOPERATIVE CHANGES: None. BRAIN PARENCHYMA: No intraparenchymal or extra-axial hemorrhage. No mass effect. No midline shift or herniation. Normal swann/white differentiation. VENTRICLES/EXTRA-AXIAL SPACES: Enlarged, consistent with atrophy. SINUSES/MASTOIDS: There is mucoperiosteal thickening in the paranasal sinuses with a small fluid level in the visualized portion the maxillary sinus on the right. The maxillary sinuses are not completely included. The mastoids and middle ears are clear. MSK: No displaced or depressed calvarial fracture. OTHER: No hyperdense intraluminal thrombus. Vascular calcifications are present. CT/CT head/brain wo con IMPRESSION: 1. No acute intracranial abnormality. No hemorrhage or mass effect. 2. Atrophy. 3. Vascular calcification. 4. Sinus thickening. Electronically authenticated by: AXEL GALVEZ Date: 12/14/2024 04:34
--- OUTSIDE RECORDS SUMMARY | 2024-12-14 03:24 | XMS_ITS | CCD ---
Author Organization [facility] CliniSyme Care Team Providers Care Hedis Specialist Name Role Phone Jada Rene Unavailable Unavailable Primary Care Provider Unavailrogerio e Edgard Jada Endy Attending Unavailable Edgard Jada A Admitting Unavailable Edgard Jada Endy Primary Care Unavailable Edgard Jada Endy Attending Unavailable Edgard Jada Endy Admitting Unavailable Edgard Jada A Primary Care Unavailable Kylah Garcia Primary Care Physician [phone] MD Kylah Garcia Attending Unavailable MD Kylah Garcia Attending Unavailable MD Kylah Garcia Attending Unavailable MD Kylah Garcia Attending Unavailable Edgar Axel Serina Admitting Unavailable Edgar Axel Serina Attending Unavailable Edgar, Axel T Referring Unavailable MD Kashif Barnett Admitting Unavailable MD Kashif Barnett Attending Unavailable MD Kashif Barnett Referring Unavailable Jason Vaughn Consulting Unavaila Jason Chase Consulting Unavaila Jason Chase Consulting Unavaila MD Kylah Choudhury Admitting Unavailable MD Kylah Garcia Attending Unavailable MD Kylah Garcia Admitting Unavailable MD Kylah Garcia Attending Unavailable Edgar Axel Serina Admitting Unavailable Edgar Axel Serina Attending Unavailable Edgar Axel Serina Referring Unavailable MD Kashif Barnett Attending Unavailable MD Kylah Garcia Referring Unavailable Dixon Dubose Admitting Unavailable Dixon Dubose Attending Unavailable MD Kylah Garcia Referring Unavailable MD Kylah Garcia Attending Unavailable MD Kylah Garcia Attending Unavailable MD Kylah Garcia Attending Unavailable Nathaniel Bonilla MD Attending Unavailable Kylah Garcia MD Primary Care Provider Kylah Garcia Attending Unavailable Kylah Garcia Attending Unavailable Kylah Garcia Attending Unavailable Kylah Garcia Attending Unavailable Kylah Garcia Attending Unavailable Kylah Garcia Attending Unavailable Kylah Garcia Attending Unavailable MoDavie christian Attending Unavailable Kylah Garcia Referring Unavailable MoDavie christian Attending Unavailable NONE, XXXX Referring Unavailable Ericka, MD Kashif Craig Admitting Unavailable Ericka, MD Kashif Craig Attending Unavailable Ericka, MD Kashif Craig Admitting Unavailable Ericka, MD Kashif Craig Attending Unavailable Ericka, MD Kashif Craig Referring Unavailable Kylah Garcia Attending Unavailable Kylah Garcia Admitting Unavailable Hernández, Axel Smalls Referring Unavailable Hernández, Axel T Admitting Unavailable Hernández, Axel T Attending Unavailable Kylah Garcia Attending Unavailable Kylah Garcia Admitting Unavailable Hernández, Axel T Admitting Unavailable Hernández, Axel Smalls Attending Unavailable Hernández, Axel Samlls Referring Unavailable Kylah Garcia Attending Unavailable Kylah Garcia Attending Unavailable Hernández, Axel T Admitting Unavailable Hernández, Axel T Attending Unavailable Hernández, Axel T Referring Unavailable Kylah Garcia Attending Unavailable Kylah Garcia Admitting Unavailable Kylah Garcia MD Primary Care Provider HERNÁNDEZ, AXEL Smalls Referring Unavailable HERNÁNDEZ, AXEL Smalls Attending Unavailable KYLAH GARCIA Referring Unavailable HERNÁNDEZ, AXEL T Attending Unavailable HERNÁNDEZ, AXEL T Referring Unavailable HERNÁNDEZ, AXEL T Attending Unavailable HERNÁNDEZ, AXEL T Referring Unavailable BESHALA Bal Attending Unavailable HERNÁNDEZ, AXEL Smalls Attending Unavailable HERNÁNDEZ, AXEL Smalls Referring Unavailable EMILIANO ESCAMILLA Attending Unavailable JELANI CHOW Attending Unavailable Hernández, Axel T Admitting Unavailable Hernández, Axel T Attending Unavailable Hernández, Axel T Referring Unavailable Allergies Allergy Classification Reported Allergen(s) Allergy Type Date of Onset Reaction(s) Facility (4 sources) No Known Medication Allergies; Translations: [No Known Medication Allergies] Propensity to adverse reactions (disorder) [facility] Repository Medications Current Medications Medication Drug Class(es) Dates Sig (Normalized) Sig (Original) acetaminophen 325 mg / HYDROcodone bitartrate 5 mg oral tablet (11 sources) Opioid Agonist Start: 03-20-2024 take 1 tablet by mouth every four hours as needed for pain [place] 325 mg-5 mg oral tablet See Instructions, for pain, 10 tab(s), Refill(s) 0, 1 tab(s) Oral q4hr PRN Pain. Duration 7 days., [facility]/pharmacy #[id number], 180.5, cm, 03/20/24 15:05:00 EDT, Height/Length Dosing, 82.5, kg, 03/20/24 15:05:00 EDT, Weight Dosing Start Date: 03/20/24 Status: Ordered End: 11-26-2024 HYDROcodone-acetaminophen (N orco) 5-325 MG tablet 11/26/2024 Discontinued (Therapy completed) atenolol 25 mg oral tablet (20 sources) beta-Adrenergic Dimitris Start: 10-22-2024 atenol ol 25 mg Tab See Instructions, take 1/2 tab daily, # 90 tab(s), Refills(s) 1, Pharmacy: [facility], 178, cm, 09/10/24 13:01:00 EDT, Height/Length Dosing, 80.1, kg, 09/10/24 13:01:00 EDT, Weight Dosing Start Date: 10/22/24 Status: Ordered Start: 04-20-2024 atenolol 25 mg Tab See Instructions, take 1/2 tab daily, # 30 tab(s), Refills(s) 5, [id number], cm, 04/20/24 13:27:00 EDT, Height/Length Dosing, 82.2, kg, 04/20/24 13:27:00 EDT, Weight Dosing Start Date: 04/20/24 Status: Ordered Start: 10-06-2015 take 1 tablet by alyssa once daily atenolol 25 mg Tab 25 mg = 1 tab(s), Oral, Daily, # 90 tab(s), Refills(s) 0, Pharmacy: [facility], 178.2, cm, 02/02/24 10:29:00 EDT, Height/Length Dosing, 84.1, kg, 02/02/24 10:29:00 EDT, Weight Dosing Start Date: 02/22/24 Status: Ordered take 1 tablet by alyssa every twelve hours Atenolol 25 MG 1 tablet Orally twice a day for 90 days Active Comment on above: TAKE 1 TABLET ONE TI ME DAILY benzonatate 200 mg oral capsule (10 sources) Non-narcotic Antitussive End: 11-26-19 25 take 1 capsule by mouth three times daily benzonatate (Tessalon) 200 MG capsule Take 1 capsule 3 times a day by oral route. 11/26/2024 Discontinued (Therapy completed) cephalexin 500 mg oral capsule (10 sources) Cephalosporin Antibacterial End: 11-26-19 25 cephalexin (Keflex) 500 MG capsule 11/26/2024 Discontinued (Therapy completed) cholecalciferol 0.125 mg oral capsule (14 sources) [...] Ordered diclofenac sodium 0.01 mg/mg topical gel (13 sources) Nonsteroidal Anti-inflammatory Drug diclofenac sodium (Voltaren) 1 % gel APPLY 1/2 inchTO THE AFFECTED AREA(S) BY TOPICAL ROUTE BID Active finasteride 5 mg oral tablet (20 sources) 5-alpha Reductase Inhibitor Start: 10-09-2014 take 1 tablet by mouth once daily finasteride 5 mg Tab 5 mg = 1 tab(s), Oral, Daily, # 90 tab(s), Refills(s) 1, Pharmacy: [facility]/pharmacy #[id number], 178.6, cm, 11/01/24 9:21:00 EST, Height/Length Dosing, 81.3, kg, 11/01/24 9:21:00 EST, Weight Dosing Start Date: 11/08/24 Status: Ordered Comment on above: Take 1 tablet by alyssa once daily. fluticasone propionate 0.05 mg/actuat metered dose nasal spray (14 sources) Corticosteroid Start: 08-31-2024 fluticasone Nasal 0.05 mg/inh [place] See Instructions, 48 mL, Refill(s) 1, USE 1 SPRAY IN EACH NOSTRIL TWICE A DAY, [id number], 178, cm, 08/28/24 14:50:00 EDT, Height/Length Dosing, 82.2, kg, 08/28/24 14:50:00 EDT, Weight Dosing Start Date: 08/31/24 Status: Ordered Start: 07-03-2024 take 1 spray(s) nasa l route twice daily Flonase 0.05 mg/inh [place] 1 spray(s), Nasal, BID, 16 gram, Refill(s) 0, each nostril, [facility]/pharmacy #[id number], 178, cm, 07/03/24 10:05:00 EDT, Height/Length Dosing, 80.8, kg, 07/03/24 10:05:00 EDT, Weight Dosing Start Date: 07/03/24 Status: Ordered End: 11-26-2024 take 1 spray(s) nasal route once daily at bedtime fluticasone (Flonase) 50 MCG/ACT nasal spray USE 1 SPRAY(S) IN EACH NOSTRIL ONCE DAILY AT BEDTIME 11/26/2024 Discontinued (Therapy completed) gabapentin 300 mg oral capsule (20 sources) Anti-epileptic Agent Start: 12-01-2023 take 1 capsule by mouth once daily gabapentin 300 mg Cap 300 mg = 1 cap(s), Oral, Daily, # 90 cap(s), Refills(s) 1, Pharmacy: [facility], 178, cm, 07/03/24 10:05:00 EDT, Height/Length Dosing, 80.8, kg, 07/03/24 10:05:00 EDT, Weight Dosing Start Date: 07/03/24 Status: Ordered glimepiride 2 mg oral tablet (20 sources) Sulfonylurea Start: 10-14-2014 glimepiride 2 mg Tab See Instructions, TAKE 1 TABLET DAILY, # 3 tab(s), Refills(s) 0, Pharmacy: [facility], 178, cm, 08/07/24 10:59:00 EDT, Height/Length Dosing, 78.2, kg, 08/07/24 10:59:00 EDT, Weight Dosing Start Date: 08/20/24 Status: Ordered Comment on above: Take 1 tablet by alyssa once daily. hydroCHLOROthiazide 25 mg oral tablet (13 sources) Thiazide Diuretic take 1 tablet by mouth once daily hydroCHLOROthiazide (HYDRODiuril) 25 MG tablet Take 1 tablet by mouth Daily Active levothyroxine sodium 0.025 mg oral tablet (20 sources) l-Thyroxine Start: 08-20-2024 Synthroid 25 mcg(0.025 mg) Tab See Instructions, TAKE 1 TABLET DAILY ON AN EMPTY STOMACH, # 3 tab(s), Refills(s) 0, Pharmacy: [facility]/pharmacy #[id number], 178, cm, 08/07/24 10:59:00 EDT, Height/Length Dosing, 78.2, kg, 08/07/24 10:59:00 EDT, Weight Dosing Start Date: 08/20/24 Status: Ordered Start: 02-13-2024 take 1 tablet by alyssa th once daily levothyroxine 25 mcg (0.025 mg) Tab 25 mcg = 1 tab(s), Oral, Daily, on an empty stomach, # 90 tab(s), Refills(s) 1, Pharmacy: [facility], 178.2, cm, 02/02/24 10:29:00 EDT, Height/Length [...] day Active meloxicam 15 mg oral tablet (20 sources) Nonsteroidal Anti-inflammatory Drug Start: 12-01-2023 take 1 tablet by mouth once daily as needed meloxicam 15 mg Tab 15 mg = 1 tab(s), Oral, Daily, as needed, Refills(s) 0 Start Date: 12/01/23 Status: Ordered methocarbamol 750 mg oral tablet (9 sources) Muscle Relaxant Start: 07-15-2024 take 1 [...] Daily, # 90 cap(s), Refills(s) 1, Pharmacy: [facility], 178, cm, 08/28/24 14:50:00 EDT, Height/Length Dosing, 82.2, kg, 08/28/24 14:50:00 EDT, Weight Dosing Start Date: 08/30/24 Status: Ordered pravastatin sodium 40 mg oral tablet (20 sources) HMG-CoA Reductase Inhibitor Start: 10-09-2014 take 1 tablet by mouth once daily pravastatin 40 mg Tab 40 mg = 1 tab(s), Oral, Daily, # 90 tab(s), Refills(s) 3, Pharmacy: [facility], 178, cm, 09/10/24 13:01:00 EDT, Height/Length [...] tab(s), Refills(s) 0, Pharmacy: [facility], 178, cm, 07/03/24 10:05:00 EDT, Height/Length Dosing, 80.8, kg, 07/03/24 10:05:00 EDT, Weight Dosing Start Date: 07/03/24 Status: Ordered Start: 02-02-2024 take 1 tablet by alyssa th once daily as needed sildenafil 100 mg Tab 100 mg = 1 tab(s), Oral, Daily, PRN for erectile dysfunction, 1 hour before sexual activity, # 5 tab(s), Refills(s) 0, Pharmacy: [facility], 178.2, cm, 02/02/24 10:29:00 EDT, Height/Length [...] daily, # 90 tab(s), Refills(s) 0, [id number], cm, 06/11/24 12:53:00 EDT, Height/Length [...] DAY, # 90 tab(s), Refills(s) 2, [id number] 180.5, cm, 03/20/24 15:05:00 EDT, Height/Length [...] tab(s), Refills(s) 2, Pharmacy: [facility], 178.2, cm, 12/01/23 13:40:00 EST, Height/Length Dosing, 85.5, kg, 12/01/23 13:40:00 EST, Weight Dosing Start Date: 12/23/23 Status: Ordered take 1 tablet by alyssa th three times daily Sodium Chloride 1000 MG 1 tablet Orally Three times a day Active Sodium Chloride 1000 mg oral tablet, soluble (1 source) Start: 11-13-2024 take 1 tablet by mouth once daily Sodium Chloride 1000 mg oral tablet, soluble See Instructions, 30 tab(s), Refill(s) 0, Take one tablet daily, [facility]/pharmacy #[id number], 178.6, cm, 11/01/24 9:21:00 EST, Height/Length Dosing, 81.3, kg, 11/01/24 9:21:00 EST, Weight Dosing Start Date: 11/13/24 Status: Ordered tamsulosin hydrochloride 0.4 mg oral capsule (20 sources) alpha-Adrenergic Dimitris Start: 10-14-2014 take 1 capsule by mouth once daily tamsulosin 0.4 mg Cap 0.4 mg = 1 cap(s), Oral, Daily, # 90 cap(s), Refills(s) 1, Pharmacy: [facility], 178, cm, 09/10/24 13:01:00 EDT, Height/Length Dosing, 80.1, kg, 09/10/24 13:01:00 EDT, Weight Dosing Start Date: 10/22/24 Status: Ordered Comment on above: Take 1 capsule by mo ut daily at bedtime. tiZANidine 4 mg oral tablet (8 sources) [place] alpha-2 Adrenergic Agonist Start: 07-24-2024 End: 11-26-2024 tiZANidine (Zanaflex) 4 MG tablet Take 4 mg by mouth 07/24/2024 11/26/2024 Discontinued (Therapy completed) triamcinolone acetonide 1 mg/ml topical cream (14 [...] daily dabigatran etexilate 150 mg oral capsule (14 sources) Start: 10-09-2014 take 1 capsule by [...] Coronary atherosclerosis; Translations: [Atherosclerotic heart disease of [place] coronary artery without angina pectoris] Onset: 08-28-2024 Chronic Diabetes mellitus without complication (20 sources) Type 2 diabetes mellitus; Translations: [Type 2 diabetes mellitus without complications] Onset: 11-26-2024 Chronic Disorders of lipid metabolism (13 sources) Hyperlipidemia; Translations: [Hyperlipidemia, unspecified] 03-02-2006 Chronic E Codes: Fall (6 sources) Fall in home; Translations: [Unspecified fall, initial encounter] Onset: 11-26-2024 11-26-2024 Episodic E Codes: Fall (11 sources) Fall in home 03-20-2024 Essential hypertension (6 sources) Benign hypertension; Translations: [Essential (primary) hypertension] Onset: 11-26-2024 11-26-2024 Chronic Fluid and electrolyte disorders (12 sources) Hypo-osmolality and hyponatremia; Translations: [Hyponatremia] Episodic Hyperplasia of prostate (20 sources) Benign prostatic hyperplasia; Translations: [Benign prostatic hyperplasia without lower urinary tract symptoms] Onset: 01-11-2013 Chronic Immunizations and screening for infectious disease (1 source) Encounter for immunization Episodic Influenza (1 source) Influenza due to other identified influenza virus with other respiratory manifestations Episodic Occlusion or stenosis of precerebral arteries (6 sources) Carotid artery occlusion; Translations: [Occlusion and stenosis of unspecified carotid artery] Onset: 11-26-2024 11-26-2024 Chronic Open wounds of head; neck; and trunk (4 sources) Laceration of head 03-20-2024 Episodic Osteoarthritis (20 sources) Degenerative joint disease involving multiple joints; Translations: [Polyosteoarthritis, unspecified] Onset: 09-12-2012 09-12-2012 Chronic Other aftercare (14 sources) Long-term current use of anticoagulant; Translations: [custodial (current) use of anticoagulants] Episodic Other aftercare (3 sources) custodial (current) use of anticoagulants Episodic Other and [...] loss; Translations: [Unspecified hearing loss, unspecified ear] Onset: 11-26-2024 05-03-2024 Chronic Other ear and sense organ disorders (1 source) Unspecified hearing loss, unspecified ear Chronic Other injuries and conditions due to external causes (2 sources) Foreign body in right ear; Translations: [Foreign body in right ear, initial encounter] 11-26-2024 Episodic Other male genital disorders (11 sources) Impotence; Translations: [Male erectile dysfunction, unspecified] Onset: 11-26-2024 02-02-2024 Chronic Other male genital disorders (13 sources) Erectile dysfunction co-occurrent and due to arterial insufficiency; Translations: [Erectile dysfunction due to arterial insufficiency] Onset: 11-26-2024 05-03-2024 Chronic Other nervous system disorders (19 sources) Carpal tunnel syndrome; Translations: [Carpal tunnel [...] Chronic Other nutritional; endocrine; and metabolic disorders (17 sources) Overweight in adulthood with body mass index of 25 or more but less than 30; Translations: [Body mass index (BMI) 25.0-25.9, adult] Onset: 11-26-2024 03-08-2024 Episodic Other screening for suspected conditions (not mental disorders or infectious disease) (7 sources) Encounter for screening for malignant neoplasm of prostate; Translations: [Melanocytic nevus of skin ] Onset: 11-26-2024 Episodic Otitis media and related conditions (4 sources) Serous otitis media 07-03-2024 Episodic Peripheral and visceral atherosclerosis (19 sources) Arteriosclerotic vascular disease; Translations: [Atherosclerotic heart disease of [place] coronary artery without angina pectoris] Onset: 11-26-2024 12-01-2023 Chronic Spondylosis; intervertebral disc disorders; other back problems (7 sources) Intervertebral disc disorder of cervical region with myelopathy; Translations: [Cervical disc disorder with myelopathy, unspecified cervical region] Onset: 2011 11-09-2021 Chronic Spondylosis; intervertebral disc disorders; other back problems (10 sources) Spasm of back muscles; Translations: [Muscle spasm of back] Onset: 11-26-2024 07-24-2024 Episodic Syncope (15 sources) Syncope and collapse; Translations: [Syncope] Onset: 04-20-2024 Episodic Thyroid disorders (20 sources) Hypothyroidism; Translations: [Hypothyroidism, unspecified] Chronic Unclassified (1 source) Encounter for screening for malignant neoplasm of prostate; Translations: [Encounter for screening for malignant neoplasm of prostate] Onset: 11-02-2023 Unclassified (1 source) intermission coordinator (current) use of anticoagulants; Translations: [custodial (current) use of anticoagulants] Onset: 06-16-2023 Results Test Name Value Interpretation Reference Range Facil ity Main OR Intraoperative Recor don 11-20-2024 Main OR Intraoperative Record Main OR Intraoperative Record IntraOp Document Type FT Summary Primary Physician: Axel Hernández DO Finalized Date/Time: 11/20/24 07:56:52 Pt. Name: DARIEL ZABALA/Sex: 1940 Male Med Rec #: [id number] Physician: Axel Hernández DO Financial #: [id number] Pt. Type: A Room/Bed: [facility] Admit/Disch: 11/19/24 09:28:12 - 11/19/24 14:30:00 Institution: Case Times FT Entry 1 Patient Times In Room 11/19/24 12:10:00 Out Room 11/19/24 12:37:00 Procedure Times Start 11/19/24 12:26:00 Stop 11/19/24 12:32:00 Anesthesia Times Start 11/19/24 12:10:00 Stop 11/19/24 12:37:00 Last Modified By: Ambrocio Borges 11/19/24 12:45:18 General Comments: 11/20/24 Chart opened to review and send charges [facility]FA Case Attendance FT Entry 1 Entry 2 Entry 3 Case Attendee Daniel RENDON, Axel Pablo DO, CST, James W Role Performed SPECIAL CRIMES INVESTIGATOR Surgeon - Primary BOWLING ALLEY ATTENDANT/SA Time In 11/19/24 12:10:00 11/19/24 12:23:00 11/19/24 12:10:00 Time Out 11/19/24 12:37:00 11/19/24 12:35:00 11/19/24 12:37:00 Procedure CARPAL TUNNEL CARPAL TUNNEL CARPAL TUNNEL RELEASE(Left) RELEASE(Left) RELEASE(Left) Comments DR LOU SUPERVISING Last Modified By: Ambrocio Borges Terry T Sweene, Terry T 11/19/24 12:45:19 11/19/24 12:53:03 11/19/24 12:45:19 Entry 4 Entry 5 Case Attendee Ambrocio Borges Laura C Role Performed Custom Garment Designer - Primary Scrub - Primary Time In 11/19/24 12:10:00 11/19/24 12:10:00 Time Out 11/19/24 12:37:00 11/19/24 12:37:00 Procedure CARPAL TUNNEL CARPAL TUNNEL RELEASE(Left) RELEASE(Left) Comments Last Modified By: Ambrocio Borges Terry T 11/19/24 12:45:19 11/19/24 12:45:19 Perioperative Protocols FT Pre-Care Text: Implements protective measures prior to operative or invasive procedure, confirms identity before the operative or invasive procedure, verifies operative procedure, surgical site, and laterality Entry 1 Procedure(s) CARPAL TUNNEL Patient Identity Birthday, ID Band RELEASE(Left) Verified (select at Check, Patient least 2): Participation Consents / H and P Anesthesia Consent, Operative Site Present Verified H&P, Surgery/Procedure Marking Verified Consent Surgical Site Yes Laterality Verified Yes Verified Procedure Verified Yes Correct Patient Yes Position Verified Availability Equipment, Medication Prep Dry Yes Verified (If Applicable) PreOp Antibiotic Yes Time Out Ethan Sanchez CRNA, Given Participants Edgar ELLIS, Giana Lobato BOWLING ALLEY ATTENDANT, Rudy Woodward Laura C, Ambrocio Borges Time Out Complete 11/19/24 12:23:00 Outcomes Met? Yes Last Modified By: Ambrocio Borges 11/19/24 12:27:56 Post-Care Text: The patient is free from signs and symptoms of injury caused by extraneous objects Allergy Information FT Pre-Care Text: Verifies allergies Entry 1 Allergies Reviewed? Yes Allergies Reviewed Self/Patient With Outcomes Met? Yes Last Modified By: Ambrocio Borges 11/19/24 12:28:05 Post-Care Text: The patient received appropriate medication(s) safely administered during the perioperative period Surgical Procedures FT Entry 1 Procedure Description Procedure CARPAL TUNNEL RELEASE Modifiers Left Surgeon Description LEFT CARPAL TUNNEL RELEASE Primary Procedure Yes Primary Surgeon Axel Hernández DO Start 11/19/24 12:26:00 Stop 11/19/24 12:32:00 Anesthesia Type General Surgical Service Orthopedics Wound Class 1 - Clean Last Modified By: Ambrocio Borges 11/19/24 12:45:25 General Case Data FT Pre-Care Text: Classifies surgical wound, implements aseptic technique, initiates traffic control Entry 1 Case Information OR OR 5 FT Case Level Level 2 Wound Class 1 - Clean Specialty Orthopedics ASA Class 3 Preop Diagnosis LEFT CARPAL TUNNEL Postop Same As Preop Yes SYNDROME Postop Diagnosis LEFT CARPAL TUNNEL Outcomes Met? Yes SYNDROME Last Modified By: Ambrocio Borges 11/19/24 12:30:21 Post-Care Text: The patient is free from signs and symptoms of infection Skin Assessment (Pre Procedure) FT Pre-Care Text: Implements protective measures to prevent skin/ tissue injury due to thermal or mechanical sources Evaluates for signs and symptoms of physical injury to skin and tissue Entry 1 Skin Integrity Intact, [place], Warm, & Skin Abnormality No Dry Outcomes Met? Yes Last Modified By: Ambrocio Borges 11/19/24 12:45:37 Post-Care Text: The patient is free from signs and symptoms of injury caused by extraneous objects Patient Positioning FT Pre-Care Text: Identifies physical alterations that require additional precautions for procedure-specific positioning, verifies presence of prosthetics or corrective devices, positions the patient, evaluates the patient for signs and symptoms of injury as a result of positioning Entry 1 Procedure CARPAL TUNNEL Body Position Supine RELEASE(Left) Feet Uncrossed? Yes Left Arm Position Extended on Hand Ta (more content not included)... Normal [facility] Operative Reporton Operative Report Operative Report SURGERY DATE: 11/19/2024 PREOPERATIVE DIAGNOSIS: Left carpal tunnel syndrome POSTOPERATIVE DIAGNOSIS: Left carpal tunnel syndrome OPERATION: Left carpal tunnel release with volar splint application ANESTHESIA: General ESTIMATED BLOOD LOSS: Zero SPECIMEN: None IMPLANTS: None COMPLICATIONS: None TOURNIQUET TIME: See nurse's record. HISTORY AND INDICATIONS: Alexx is an 84-year-old male with progressive left hand pain with burning, tingling, and associated night disruption. He has tried conservative management. Please see office notes and History and Physical as well as attached electromyogram. Sites marked preoperatively, all questions answered preoperatively, consent form signed and witnessed. PROCEDURE: Alexx was taken to the Operating Room and placed in supine position. Anesthesia was provided. A well-padded tourniquet was placed on the left upper brachium. The arm was prepped and draped in sterile fashion. A time-out procedure occurred consistent with the consent form, History and Physical, preoperative marked site. Landmarks were identified. Once time-out was confirmed, a carpal tunnel longitudinal incision was made in the palmar wrist area of approximately 15 mm. Palmar fascia was split. Self-retaining retractor was applied. Transverse carpal ligament was released centrally and further released proximally and distally with blunt dissection scissors. Complete release was achieved. There was no hourglass deformity, space-occupying mass or lesion. There was a moderate amount of flattening of the median nerve. After complete release is accommodated, it was copiously irrigated out. The skin was closed with two horizontal mattress sutures of 4-0 nylon; 8 cc of 0.25% plain Marcaine was injected. Bacitracin, Adaptic, and well-padded sterile dressing were applied. A 3-inch Ortho-Glass splint was provided in the neutral static position incorporating the dressing. Tourniquet was deflated. Alexx was awakened from anesthesia and transferred to the Recovery Room in stable and satisfactory condition. CASE: Clean and elective COUNTS: Sponge and needle count correct SPECIMEN: None PATIENT CONDITION: Satisfactory Deanna Weller Dictated: 11/19/2024 [id number] Transcribed: 11/19/2024 cc:Kylah Garcia M.D. [facility] Comment on above: Result Comment: Elec tronically Signed By: Axel Hernández DO\.br\Date and Time Signed: 11/20/24 16:36 EST BMPon 11-19-2024 Anion gap [Moles/Vol] 10 mmol/L Normal 6-16 [facility] Comment on above: Order Comment: To be drawn day of surgery. Performed By: #### 2 [id number] #### [facility] [address] [place] [address] Calcium [Mass/Vol] 9.2 mg/dL Normal 8.9-11.1 [facility] Comment on above: Order Comment: To be drawn day of surgery. Performed By: #### 2 [id number] #### [facility] [address] [place] [address] Chloride [Moles/Vol] 98 mmol/L Low 101-111 [facility] Comment on above: Order Comment: To be drawn day of surgery. Performed By: #### 2 [id number] #### [facility] [address] [place] [address] CO2 [Moles/Vol] 26 mmol/L Normal 21-31 [facility] Comment on above: Order Comment: To be drawn day of surgery. Performed By: #### 2 [id number] #### [facility] [address] [place] [address] Creatinine [Mass/Vol] 0.9 mg/dL Normal 0.5-1.3 [facility] Comment on above: Order Comment: To be drawn day of surgery. Performed By: #### 2 [id number] #### [facility] [address] [place] [address] Glucose [Mass/Vol] 77 mg/dL Normal 55-199 [facility] Comment on above: Order Comment: To be drawn day of surgery. Performed By: #### 2 [id number] #### [facility] [address] [place] [address] Potassium [Moles/Vol] 4.2 mmol/L Normal 3.5-5.3 [facility] Comment on above: Order Comment: To be drawn day of surgery. Performed By: #### 2 [id number] #### [facility] [address] [place] [address] Sodium [Moles/Vol] 130 mmol/L Low 135-145 [facility] Comment on above: Order Comment: To be drawn day of surgery. Performed By: #### 2 [id number] #### [facility] [address] [place] [address] Urea nitrogen [Mass/Vol] 8 mg/dL Normal 5-21 [facility] Comment on above: Order Comment: To be drawn day of surgery. Performed By: #### 2 [id number] #### [facility] [address] [place] [address] Urea nitrogen/Creatinine [Mass ratio] 9 No Units Low 10-20 [facility] Comment on above: Order Comment: To be drawn day of surgery. Performed By: #### 2 [id number] #### [facility] [address] [place] [address] CHEMISTRYOrdered By: Lab ROP User on 11-19-2024 Glucose [Mass/Vol] 78 mg/dL Normal 55 - 99 mg/dL [facility] POC Subsection Comment on above: Result Comment: Hilary danna Meter POC Username MAYA SOTELO Invalid Interpretation Code [facility] POC Subsection Sodium [Moles/Vol] [id number] mmol/L Invalid Interpretation Code [facility] POC Subsection Sodium [Moles/Vol] [id number] mmol/L Invalid Interpretation Code [facility] POC Subsection CHEMISTRYOrdered By: SYSTEM SYSTEM on [...] 38.5 s High 25.1 - 36.5 second(s) [facility] Auto Coag Comment on above: Interpretive Data: [...] the same coagulation reagent and instrumentation as [facility]. Currently there are no coagulation studies available worldwide for children to 14 days, and no normal ranges. Heparin therapeutic range (represented by Anti-Factor Xa activity of 0.2 - 0.4 U/mL) corresponds to PTT of 56.6 - 109.0 sec. INR Coag (PPP) [Relative time] 1.11 {INR} Invalid Interpretation Code [facility] Comment on above: Interpretive Data: I NR results are specifically intended to assess patients stabilized on long-term Anticoagulation therapy suggested INR s Less Intensive Anticoagulation 2.0 3.0 Conventional Range 3.0 4.5 PT Coag (PPP) [Time] 12.5 s Normal 9.4 - 1 2.5 second(s) [facility] Auto [facility] Comment on above: Interpretive Data: [...] the same coagulation reagent and instrumentation as [facility]. Currently there are no coagulation studies available worldwide for children to 14 days, and no normal ranges. Capillary Glucose POCon Glucose [Mass/Vol] 78 mg/dL Normal 55-99 [facility] Comment on above: Result Comment: Hilary danna Meter Performed By: #### 2 [id number] #### [facility] [address] [place] [address] Discharge Instructionson Discharge Instructions Discharge Instructions DARIEL ZABALA :1940 Visit Date:11/19/2024 Inpatient Discharge Instructions Your Care Team Admitting Physician - Axel Hernández DO Referring Physician - Axel Hernández DO Reason for Your Visit LEFT CARPAL TUNNEL SYNDROME Procedure History Carpal tunnel release (03/26/2024), Carpal tunnel release, Release of trigger finger, Surgery. Discharge Vitals Temperature (Temporal Artery) 36.5 ???C Heart Rate (Monitored) 60 Respiratory Rate 13 Blood Pressure 117/68 What to do next Instructions From Your Doctor Event Name Event Result Discharge Instructions Freetext Tylenol OTC as needed for pain.Resume the blood thinner the day after the surgery. Discharge Activity Ambulate as tolerated, Arrange [...] Dressing On 2 Discharge Instructions Discharge Instructions Previously Scheduled Follow-Up Appointments Tuesday 10:15 AM EST With: Gracy DOTY, Dixon Schumacher Where: [facility]iology Clinic 2024 8:00 AM EDT With: Where: [facility] Medicine [address] [address]- New Follow Up Appointments after Discharge Follow Up with GORDO Weller When: 11/28/2024 01:00 PM EST Comments: Keep scheduled appointment. Call for any problems. Where: [address] [place] [phone]- [employer] (1) Medications What How Much When Instructions Next Dose Unchanged atenolol (atenolol 25 mg Tab) See instructions take 1/ 2 tab daily Unchanged cholecalciferol (D3) See instructions Oral Daily- patient states he takes 500 once a day Unchanged cyanocobalamin (Vitamin B12) 50 Microgram By Mouth Every day as needed for Prophylaxis Unchanged finasteride (finasteride 5 mg Tab) 1 Tablets By Mouth Every day Unchanged fluticasone nasal (fluticasone Nasal 0.05 mg/ inh [place]) See instructions USE 1 SPRAY IN EACH [...] See instructions 1 gram orally daily Unchanged sodium chloride (Sodium Chloride 1000 mg oral tablet, soluble) See instructions Take one tablet daily Unchanged tamsulosin (tamsulosin 0.4 mg Cap) 1 Capsules By Mouth Every day Unchanged Turmeric (Turmeric 500 mg oral capsule) 1 Capsules By Mouth Every day as needed for Prophylaxis Unchanged ubiquinone (CoQ10) See instructions Unchanged warfarin (Jantoven 5 mg oral tablet) 1 Tablets By Mouth Every day Test Results BMP Glucose Lvl: 77 mg/dL (11/19/24 10:04:00) BUN: 8 mg/dL (11/19/24 10:04:00) Creatinine: 0.9 mg/dL (11/19/24 10:04:00) BUN/Creat Ratio: 9 Low (11/19/24 10:04:00) Sodium Lvl: 130 mmol/L Low (11/19/24 10:04:00) Potassium Lvl: 4.2 mmol/L (11/19/24 10:04:00) Chloride: 98 mmol/L Low (11/19/24 10:04:00) CO2: 26 mmol/L (11/19/24 10:04:00) AGAP: 10 mEq/L (11/19/24 10:04:00) Calcium Lvl: 9.2 mg/dL (11/19/24 10:04:00) Allergies No Known Medication Allergies Education Materials [place] [place] [facility] CARPAL TUNNEL RELEASE INSTRUCTIONS [...] day two. Do not be alarmed if the (more content not included)... Normal [facility] Comment on above: Result Comment: Elec tronically Signed By: Dirk KHAN, Maya Ott\.br\Date and Time Signed: 11/19/24 13:12 EST [facility] CAPILLARY GLUCOSE POCon 11-19-2024 Glucose [Mass/Vol] 78 mg/dL 55 - 99 mg/dL [facility] Comment on above: Cleaned Meter Original Ordering Provider: DO Axel Hernández [facility] Main OR PACU I Recordon Main OR PACU I Record Main OR PACU I Record PACU Phase I Document Type FT Summary Primary Physician: Axel Hernández DO Finalized Date/Time: 11/19/24 13:24:52 Pt. Name: DARIEL ZABALA /Sex: 1940 Male Med Rec #: [id number] Physician: Axel Hernández DO Financial #: [id number] Pt. Type: A Room/Bed: Admit/Disch: 11/19/24 09:28:12 - Institution: Case Times PACU I FT [...] to medications Entry 1 In PACU I 11/19/24 12:40:00 Discharge from PACU 11/19/24 13:10:00 I Outcomes Met? Yes Last Modified By: Navdeep KHAN, Vicki Craig 11/19/24 13:24:37 Post-Care Text: The patient demonstrates knowledge of [...] PACU I FT Entry 1 Start Time 11/19/24 12:40:00 Stop Time 11/19/24 13:10:00 Acuity Level Acuity Level I Last Modified By: Vicki Sethi RN 11/19/24 13:24:44 Finalized By: Vicki Sethi RN Document Signatures Signed By: Vicki Sethi RN 11/19/24 13:24 Vicki Sethi RN 11/19/24 13:24 Normal [facility] Main OR PACU II Recordon Main OR PACU II Record Main OR PACU II Record PACU Phase II Document Type FT Summary Primary Physician: Axel Hernández DO Finalized Date/Time: 11/19/24 14:27:02 Pt. Name: DARIEL ZABALA/Sex: 1940 Male Med Rec #: [id number] Physician: Axel Hernández DO Financial #: [id number] Pt. Type: A Room/Bed: Admit/Disch: 11/19/24 09:28:12 - Institution: Case Times PACU II FT Pre-Care [...] to medications Entry 1 In PACU II 11/19/24 13:15:00 Discharge from PACU 11/19/24 14:30:00 II Outcomes Met? Yes Last Modified By: Maya Sotelo RN 11/19/24 14:27:00 Post-Care Text: The patient demonstrates knowledge of [...] administered during the perioperative period Finalized By: Maya Sotelo RN Document Signatures Signed By: Maya Sotelo RN 11/19/24 14:27 Normal [facility] Main OR Preoperative Recordo n 11-19-2024 Main OR Preoperative Record Main OR Preoperative Record PreOp Document Type FT Summary Primary Physician: Axel Hernández DO Finalized Date/Time: 11/19/24 12:53:23 Pt. Name: CLIFFORDKassiDARIEL/Sex: 1940 Male Med Rec #: [id number] Physician: Axel Hernández DO Financial #: [id number] Pt. Type: A Room/Bed: [facility] Admit/Disch: 11/19/24 09:28:12 - Institution: Case Times PreOp FT Pre-Care Text: Verifies consent for planned procedure, identifies individual values and wishes concerning care, includes family members in perioperative teaching Entry 1 Patient Times. In Pre Surgery 11/19/24 09:35:00 Out Pre Surgery 11/19/24 12:08:00 Outcomes Met? Yes Last Modified By: Ambrocio Borges 11/19/24 12:53:16 Post-Care Text: The patient participates in decisions affecting his or her perioperative plan of care Finalized By: Ambrocio Borges Document Signatures Signed By: Ambrocio Borges 11/19/24 12:53 Ambrocio Borges 11/19/24 12:53 [facility] PT & PTTon 11-19-2024 aPTT Coag (PPP) [Time] 38.5 second(s) High 25.1-36.5 [facility] Comment on above: Result Comment: Para meter [...] the same coagulation reagent and instrumentation as [facility]. Currently there are no coagulation studies available worldwide for children to 14 days, and no normal ranges. Heparin therapeutic range (represented by Anti-Factor Xa activity of 0.2 - 0.4 U/mL) corresponds to PTT of 56.6 - 109.0 sec. Performed By: #### 1 [id number] #### [facility] [address] [place] [address] INR Coag (PPP) [Relative time] 1.11 {INR} Invalid Interpretation Code [facility] Comment on above: Result Comment: INR results are specifically intended to assess patients stabilized on long-term Anticoagulation therapy suggested INR???s ???Less Intensive Anticoagulation??? 2.0 ??? 3.0 Conventional Range 3.0 ??? 4.5 Performed By: #### 1 [id number] #### [facility] [address] [facility] [address] PT Coag (PPP) [Time] 12.5 second(s) Normal 9.4-12.5 [facility] Comment on above: Result Comment: 15 d ays - 4 weeks 1 - 5 months 6 -11 months 1 ??? 5 years 6 ??? 10 years 11 -17 years Mean: 11.2 (9.5 ??? 12.6) Mean: 11.0 (9.7 ??? 12.8) Mean: 11.0 (9.8 ??? 13.0) Mean: 11.3 (9.9 ??? 13.4) Mean: 11.7 (10.0 ??? 14.6) Mean: 11.8 (10.0 - 14.1) Pediatric Reference ranges were obtained from a study by meka Burk al. prepared from 1437 samples obtained at 7 different centers using the same coagulation reagent and instrumentation as [facility]. Currently there are no coagulation studies available worldwide for children to 14 days, and no normal ranges. Performed By: #### 1 [id number] #### [facility] [address] [place] [address] eGFRon 11-19-2024 eGFR 85 mL/min/1.73 m2 Normal >=59 [facility] Comment on above: Performed By: #### 1 [id number] #### [facility] [address] [place] [address] BMPon 11-12-2024 Anion gap [Moles/Vol] 7 mmol/L Normal 6-16 [facility] Comment on above: Performed By: #### 2 [id number] #### [facility] [address] [place] [address] Calcium [Mass/Vol] 8.8 mg/dL Low 8.9-11.1 [facility] Comment on above: Performed By: #### 2 [id number] #### [facility] [address] [place] [address] Chloride [Moles/Vol] 97 mmol/L Low 101-111 [facility] Comment on above: Performed By: #### 2 [id number] #### [facility] [address] [place] [address] CO2 [Moles/Vol] 28 mmol/L Normal 21-31 [facility] Comment on above: Performed By: #### 2 [id number] #### [facility] [address] [place] [address] Creatinine [Mass/Vol] 0.9 mg/dL Normal 0.5-1.3 [facility] Comment on above: Performed By: #### 2 [id number] #### [facility] [address] [place] [address] Glucose [Mass/Vol] 106 mg/dL Normal 55-199 [facility] Comment on above: Performed By: #### 2 [id number] #### [facility] [address] [place] [address] Potassium [Moles/Vol] 4.4 mmol/L Normal 3.5-5.3 [facility] Comment on above: Performed By: #### 2 [id number] #### [facility] [address] [place] [address] Sodium [Moles/Vol] 128 mmol/L Low 135-145 [facility] Comment on above: Performed By: #### 2 [id number] #### [facility] [address] [place] [address] Urea nitrogen [Mass/Vol] 12 mg/dL Normal 5-21 [facility] Comment on above: Performed By: #### 2 [id number] #### [facility] [address] [place] [address] Urea nitrogen/Creatinine [Mass ratio] 13 No Units Normal 10-20 [facility] Comment on above: Performed By: #### 2 [id number] #### [facility] [address] [place] [address] CHEMISTRYOrdered By: SYSTEM SYSTEM on 11-12-2024 Anion [...] (Bld) [Mass fraction] 5.4 % Normal <=5.9% [facility] ChemAutoSS [id number] 11-12-2024 HbA1c (Bld) [Mass fraction] 5.4 % Normal <=5.9 [facility] Comment on above: Performed By: #### 7 [id number] #### [facility] [address] [place] [address] Inpatient Patient Summaryon 11-12-2024 Inpatient Patient Summary Inpatient Patient Summary [address] [address] [facility] Clinical Discharge Instructions PERSON INFORMATION Name: DARIEL ZABALA PHYSICIANS Admitting Physician: Axel Hernández DO Attending Physician: Axel Hernández DO PCP: Kylah Garcia MD Discharge Diagnosis: Carpal tunnel syndrome on left Comment: PATIENT EDUCATION INFORMATION Instructions: Edgar Gonzalez Carpal Tunnel Release Instructions (Custom) (CUSTOM) Medication Leaflets: Follow up: With: Address: When: Axel Hernández [address] [place] [address] [employer] (1) Comments: Keep scheduled appointment Type Location Start [facility] Surgery [facility] Surgical Services 11/19/2024 2:15 PM 11/19/2024 2:45 PM Confirmed Cardiology Follow Up (FT) [facility] 12/12/2024 10:15 AM 12/12/2024 10:30 AM Confirmed Medicare Wellness Subsequent [facility] FM Brogue 05/02/2025 8:00 AM 05/02/2025 9:00 AM Confirmed [...] 1. fluticasone nasal (fluticasone Nasal 0.05 mg/inh [place]) USE 1 SPRAY IN EACH NOSTRIL TWICE [...] Tablets By Mouth every day. Comment: Normal [facility] Outpatient Surgery Discharge Instructionon 11-12-2024 Outpatient Surgery Discharge Instruction Outpatient Surgery Discharge Instruction [address] [address] Patient Discharge Instructions PERSON INFORMATION [...] Follow up: With: Address: When: Axel Hernández [address] [place] [phone] Business (1) Comments: Keep scheduled appointment Type Location Start [facility] Surgery [facility] Surgical Services 11/19/2024 2:15 PM 11/19/2024 2:45 PM Confirmed Cardiology Follow Up (FT) FT.Cardiology Clinic 12/12/2024 10:15 AM 12/12/2024 10:30 AM Confirmed Medicare Wellness Subsequent [facility] FM Brogue 05/02/2025 8:00 AM 05/02/2025 9:00 AM Confirmed [...] to serve you. Thank you for choosing [facility] HERE ARE THE MEDICATION CHANGES THAT OCCURRED [...] 1. fluticasone nasal (fluticasone Nasal 0.05 mg/inh [place]) USE 1 SPRAY IN EACH NOSTRIL TWICE [...] Mouth every day. PATIENT EDUCATION INFORMATION Instructions: [place] [place] [facility] CARPAL TUNNEL RELEASE INSTRUCTIONS Post-Operative Week One You will be in a soft dressing from mid palm to forearm. Please remove dressing two days after surgery. At that point, clean daily with peroxide or betadine and place daily fresh bandaids. Cover for showers with waterproof bandaid, op site occlusive dressing (more content not included)... Normal [facility] TSH With T4fr Reflexon 11-12 TSH Qn 2.17 m[IU]/L Normal 0.34-5.60 [facility] Comment on above: Performed By: #### 1 [id number] #### [facility] [address] [place] [address] eGFRon 11-12-2024 eGFR 85 mL/min/1.73 m2 Normal >=59 [facility] Comment on above: Performed By: #### 1 [id number] #### [facility] [address] [place] [address] Ambulatory Visit Summaryon 1 01-02-2024 Ambulatory Visit [...] Tab) fluticasone nasal (fluticasone Nasal 0.05 mg/inh [place]) gabapentin (gabapentin 300 mg Cap) glimepiride (glimepiride [...] Appointments Tuesday 9:20 AM EST With: Where: [address] [id number]- Tuesday 2:15 PM EST With: Where: [facility] Surgical Services Tuesday 10:15 AM EST With: Dixon Dubose PA-C Where: Cardiology Clinic 2024 8:00 AM EDT With: Where: [address] [id number]- Medications What How Much When Instructions Unchanged [...] fluticasone nasal (fluticasone Nasal 0.05 mg/ inh [place]) See instructions USE 1 SPRAY IN EACH [...] choosing us for your care. [facility] Family Medicine Office/Clini c Noteon [...] cardiovascular disease) (I25.10: Atherosclerotic heart disease of [place] coronary artery without angina pectoris) Denies CP. [...] Recent) 3074 (more content not included)... Normal [facility] Comment on above: Result Comment: Elec tronically Signed By: Adam COHN, Kylah Marcosbr\Date and Time Signed: 11/01/24 09:42 EST BMPon 10-30-2024 Anion gap [Moles/Vol] 11 mmol/L Normal 6-16 [facility] Comment on above: Performed By: #### 2 [id number] #### [facility] [address] [place] [address] Calcium [Mass/Vol] 9.0 mg/dL Normal 8.9-11.1 [facility] Comment on above: Performed By: #### 2 [id number] #### [facility] [address] [place] [address] Chloride [Moles/Vol] 96 mmol/L Low 101-111 [facility] Comment on above: Performed By: #### 2 [id number] #### [facility] [address] [place] [address] CO2 [Moles/Vol] 27 mmol/L Normal 21-31 [facility] Comment on above: Performed By: #### 2 [id number] #### [facility] [address] [place] [address] Creatinine [Mass/Vol] 0.9 mg/dL Normal 0.5-1.3 [facility] Comment on above: Performed By: #### 2 [id number] #### [facility] [address] [place] [address] Glucose [Mass/Vol] 87 mg/dL Normal 55-199 [facility] Comment on above: Performed By: #### 2 [id number] #### [facility] [address] [place] [address] Potassium [Moles/Vol] 4.7 mmol/L Normal 3.5-5.3 [facility] Comment on above: Performed By: #### 2 [id number] #### [facility] [address] [place] [address] Sodium [Moles/Vol] 129 mmol/L Low 135-145 [facility] Comment on above: Performed By: #### 2 [id number] #### [facility] [address] [place] [address] Urea nitrogen [Mass/Vol] 15 mg/dL Normal 5-21 [facility] Comment on above: Performed By: #### 2 [id number] #### [facility] [address] [place] [address] Urea nitrogen/Creatinine [Mass ratio] 17 No Units Normal 10-20 [facility] Comment on above: Performed By: #### 2 [id number] #### [facility] [address] [place] [address] CBC w/ Auto Diffon 4 Basophils/100 WBC (Bld) 0.9 % Normal 0.0-2.0 [facility] Comment on above: Performed By: #### 2 [id number] #### [facility] [address] [place] [address] Basophils/Leukocytes Auto (Bld) [Pure # fraction] 0.0 E9/L Normal 0.0-0.2 [facility] Comment on above: Performed By: #### 2 [id number] #### [facility] [address] [place] [address] Eosinophils (Bld) [#/Vol] 0.2 E9/L Normal 0.0-0.5 [facility] Comment on above: Performed By: #### 2 [id number] #### [facility] [address] [place] [address] Eosinophils/100 WBC (Bld) 3.6 % Normal 0.0-8.0 [facility] Comment on above: Performed By: #### 2 [id number] #### [facility] [address] [place] [address] Erythrocyte distribution width (RBC) [Ratio] 13.4 % Normal 10.9-14.2 [facility] Comment on above: Performed By: #### 2 [id number] #### [facility] [address] [place] [address] Hematocrit (Bld) [Volume fraction] 36.3 % Low 37.7-49.0 [facility] Comment on above: Performed By: #### 2 [id number] #### [facility] [address] [place] [address] Hemoglobin (Bld) [Mass/Vol] 12.8 g/dL Low 13.5-17.5 [facility] Comment on above: Performed By: #### 2 [id number] #### [facility] [address] [place] [address] Lymphocytes (Bld) [#/Vol] 1.5 E9/L Normal 1.0-4.0 [facility] Comment on above: Performed By: #### 2 [id number] #### [facility] [address] [place] [address] Lymphocytes/100 WBC (Bld) 30.1 % Normal 14.0-50.0 [facility] Comment on above: Performed By: #### 2 [id number] #### [facility] [address] [place] [address] MCH (RBC) [Entitic mass] 31.7 pg Normal 27.0-34.0 [facility] Comment on above: Performed By: #### 2 [id number] #### [facility] [address] [place] [address] MCHC (RBC) [Mass/Vol] 35.2 g/dL Normal 31.4-36.0 [facility] Comment on above: Performed By: #### 2 [id number] #### [facility] [address] [place] [address] MCV (RBC) [Entitic vol] 90.1 fL Normal 80.0-100.0 [facility] Comment on above: Performed By: #### 2 [id number] #### [facility] [address] [place] [address] Monocytes (Bld) [#/Vol] 0.4 E9/L Normal 0.2-1.0 [facility] Comment on above: Performed By: #### 2 [id number] #### [facility] [address] [place] [address] Neutrophils (Bld) [#/Vol] 2.9 E9/L Normal 2.0-7.5 [facility] Comment on above: Performed By: #### 2 [id number] #### [facility] [address] [place] [address] Neutrophils/100 WBC (Bld) 56.9 % Normal 36.0-75.0 [facility] Comment on above: Performed By: #### 2 [id number] #### [facility] [address] [place] [address] Platelet 175.0 E9/L Normal 150.0-500.0 [facility] Comment on above: Performed By: #### 2 [id number] #### [facility] [address] [place] [address] Platelet mean volume (Bld) [Entitic vol] 9.1 fL Normal 6.4-10.8 [facility] Comment on above: Performed By: #### 2 [id number] #### [facility] [address] [place] [address] RBC (Bld) [#/Vol] 4.0 E12/L Low 4.3-5.9 [facility] Comment on above: Performed By: #### 2 [id number] #### [facility] [address] [place] [address] WBC corrected for nucl RBC Auto (Bld) [#/Vol] 5.1 E9/L Normal 4.0-11.0 [facility] Comment on above: Performed By: #### 2 [id number] #### [facility] [address] [place] [address] CHEMISTRYOrdered By: SYSTEM SYSTEM on 10-30-2024 Anion [...] 10-30-2024 eGFR 85 mL/min/1.73 m2 Normal >=59 [facility] Comment on above: Performed By: #### 1 [id number] #### [facility] [address] [place] [address] Family Medicine Office/Clini c Noteon 09-10-2024 Family [...] Daily, # 90 tab(s), Refills(s) 0, [facility], 178, cm, 09/10/24 13:01:00 EDT, Height/Length [...] Daily, 1 refills fluticasone Nasal 0.05 mg/inh [place], See Instructions gabapentin 300 mg Cap, 300 [...] Diabetes mellitus (more content not included)... Normal [facility] Comment on above: Result Comment: Elec tronically Signed By: Adam COHN, Kylah Lopez.claudio\Date and Time Signed: 09/10/24 13:19 EDT General Surgery Office/Clini c Noteon 08-28-2024 General Surgery Office/Clinic Note General Surgery Office/Clinic Note Chief Complaint ref- hernia HPI Staff GAGGERMAN Dariel is an 84 y.o. male here [...] E&M of New Patient Low 30-44 Min 22545 2. 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 Longstanding persistent atrial fibrillation (I48.11: Longstanding persistent atrial fibrillation) Should patient require or opt for a robotic repair he will need to hold his anticoagulation for 5 days prior to the procedure Ordered: E&M of New Patient Low 30-44 Min 60266 Follow-up No qualifying data available Problem List/Past [...] Oral, Daily, 1 refills Flonase 0.05 mg/inh [place], 1 spray(s), Nasal, BID gabapentin 300 mg [...] virus vaccine, inactivated 08/02/2014 Recorded Normal [facility] Comment on above: Result Comment: [...] mg Tab) fluticasone nasal (Flonase 0.05 mg/inh [place]) gabapentin (gabapentin 300 mg Cap) glimepiride (glimepiride [...] EST With: Adam COHN, Kylah Cole Where: [address] [address]- Tuesday 1:00 PM EST With: Dixon Dubose PA-C Where: [facility] 2024 8:00 AM EDT With: Where: [address] [address]- Medications What How Much When Why Instructions [...] Unchanged fluticasone nasal (Flonase 0.05 mg/ inh [place]) 1 Sprays Nasal Inhalation 2 times a [...] choosing us for your care. Normal [facility] Family Medicine Office/Clini c Noteon [...] # 21 tab(s), Refills(s) 0, Pharmacy: [facility]acy #[id number], 178, cm, 07/31/24 14:02:00 EDT, [...] Oral, Daily, 1 refills Flonase 0.05 mg/inh [place], 1 spray(s), Nasal, BID gabapentin 300 mg [...] 1 r (more content not included)... Normal [facility] Comment on above: Result Comment: Elec tronically Signed By: Adam COHN, Kylah Lopez.br\Date and Time Signed: 08/07/24 11:41 EDT Family [...] # 21 tab(s), Refills(s) 0, Pharmacy: [facility]/pharmacy #[id number], 178, cm, 07/31/24 14:02:00 EDT, Height/Length Dosing, 78.5, kg, 07/31/24 14:02:00 EDT, Weight Dosing tramadol, 50 mg = 1 tab(s), Oral, q4hr, PRN for pain, X 7 day(s), # 21 tab(s), Refills(s) 0, Pharmacy: [facility]/pharmacy #[id number], 178, cm, 07/31/24 14:02:00 EDT, [...] Oral, Daily, 1 refills Flonase 0.05 mg/inh [place], 1 spray(s), Nasal, BID gabapentin 300 mg [...] virus vaccine, inactivated 08/02/2014 Recorded Normal [facility] Comment on above: Result Comment: [...] mg Tab) fluticasone nasal (Flonase 0.05 mg/inh [place]) gabapentin (gabapentin 300 mg Cap) glimepiride (glimepiride [...] PM EDT With: Kylah Garcia MD Where: [address] [id number]- 2023 9:15 AM EST With: Kylah Garcia MD Where: [address] [address]- Tuesday 1:00 PM EST With: Dixon Dubose PA-C Where: [facility] 2024 8:00 AM EDT With: Where: [address] [id number]- Medications What How Much When Instructions Unchanged [...] Unchanged fluticasone nasal (Flonase 0.05 mg/ inh [place]) 1 Sprays Nasal Inhalation 2 times a [...] choosing us for your care. Normal [facility] Family Medicine Office/Clini c Noteon 07-24-2024 Family Medicine Office/Clinic Note Family Medicine Office/Clinic Note HPI Staff Dariel is an 84 year old male presenting for ER follow up ER followup: Hospital: [place] Visit date: 07/14/24 Symptoms the patient presented [...] patient was under the dosed. Patient stated [place] was helping him more. Patient denies any [...] - Will do Tizanadine - Will do [place] for pain - Follow up in 1 week. - Will send to pain Ordered: [facility] External Ambulatory Referral 2. Inguinal hernia of left side without obstruction or gangrene (K40.90: Unilateral inguinal hernia, without obstruction or gangrene, not specified as recurrent) - Pt cancelled his surgery. - NO pain at this time. - Encouraged follow up Ordered: [facility] External Ambulatory Referral 3. Nonsmoker (Z78.9: Other specified health status) - Please continue to not smoke Ordered: Body Mass Index (BMI) documented 3008F Current tobacco non-user 1036F Depression Screening Negative 3352F [facility] External Ambulatory Referral Most recent diastolic blood [...] q8hr, # 90 tab(s), Refills(s) 1, Pharmacy: [facility]/pharmacy #[id number], 178, cm, 07/24/24 14:57:00 EDT, [...] Oral, Daily, 1 refills Flonase 0.05 mg/inh [place], 1 spray(s), Nasal, BID gabapentin 300 mg Cap, 300 mg= 1 cap(s), Oral, Daily, 1 refills glimepiride 2 mg Tab, 2 mg= 1 tab(s), Oral, Daily, 1 refills Jantoven 5 mg oral tablet, 5 mg= 1 tab(s), Oral, Daily levothyroxine 25 mcg (0.025 mg) Tab, 25 mcg= 1 tab(s), Oral, Daily, 1 refills [place] 325 mg-5 mg oral tablet, 1 tab(s), [...] No. [place]hol (more content not included)... Normal [facility] Comment on above: Result Comment: Elec tronically Signed By: Kylah Garcia MD\.br\Date and Time Signed: 07/24/24 15:24 EDT [...] AM EST With: Kylah Garcia MD Where: [address] [address]- Tuesday 1:00 PM EST With: Dixon Dubose PA-C Where: [facility] 2024 8:00 AM EDT With: Where: [address] [address]- Medications What How Much When Instructions Unchanged [...] choosing us for your care. [place] [facility] Family Medicine Office/Clini c Noteon [...] BID, 16 gram, Refill(s) 0, each nostril, [id number], 178, cm, 07/03/24 10:05:00 EDT, Height/Length Dosing, 80.8, kg, 07/03/24 10:05:00 EDT, Weight Dosing gabapentin, 300 mg = 1 cap(s), Oral, Daily, # 90 cap(s), Refills(s) 1, Pharmacy: [facility], 178, cm, 07/03/24 10:05:00 EDT, Height/Length Dosing, 80.8, kg, 07/03/24 10:05:00 EDT, Weight Dosing omeprazole, 40 mg = 1 cap(s), Oral, Daily, # 90 cap(s), Refills(s) 0, Pharmacy: [facility], 178.2, cm, 02/02/24 10:29:00 EDT, Height/Length Dosing, 84.1, kg, 02/02/24 10:29:00 EDT, Weight Dosing sildenafil, 100 mg = 1 tab(s), Oral, Daily, PRN for erectile dysfunction, 1 hour before sexual activity, # 5 tab(s), Refills(s) 0, Pharmacy: [facility], 178, cm, 07/03/24 10:05:00 EDT, Height/Length Dosing, 80.8, kg, 07/03/24 10:05:00 EDT,... 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 Normal [facility] Comment on above: Result [...] influenza virus vaccine, inactivated 08/02/2014 Recorded Normal [facility] Comment on above: Result Comment: Elec tronically Signed By: Ericka COHN, Kashif Perez.claudio\Date and Time Signed: 06/11/24 13:14 EDT Heart [...] November and January and was hospitalized in [place] for 2 of those. He states that [...] with voice recognition artificial intelligence software, specifically FileThis, JournallyMe and or Muxlim. Substitutions may have occurred due to the inherent limitations of voice recognition and artificial intelligence software. Total time spent pr (more content not included)... Normal [facility] Comment on above: Result Comment: Elec tronically Signed By: Dixon Dubose PA-C\Shannabr\Date and Time Signed: 05/30/24 14:29 EDT Holter [...] BY: Kashif Barnett MD ca Dictated: 05/27/2024 [id number] Transcribed: 05/28/2024 [facility] Comment on above: Result Comment: Elec tronically Signed By: Ericka COHN, Kashif Craig\.br\Date and Time Signed: 05/29/24 13:13 EDT Coding Summary.on 05-09-2024 Coding Summary. KNZEDbdo55EHd8vNm+P GhlYWQ+YF2XZRLlU19t kPXcjO8bR8ZAUVxVItr gQVBQTElOSyIgbmFtZT 1kaXNjZXJu IC8+FS4vZVTlGsijnPJ oo5V1fSM8C72quz2yTV bweDA1QBXbTvRipqnav 2bysBo6MHqjRoioCmFm WAKeiO62ZLG9wU63Qd3 5hZQjkOFvc3twcEg4Nv PkYERcNXQ0lNobTXvmm 0RcPJYfW61nfIUqd7N1 IGNvbGxhcHNlOyBlbXB 7nP6eMDbwwamnw4jyti kjZlw0ac81cRMab0Q6a AQ7X9KcanE3JJOvcHVr OiaxeHSRlU6jfokxj8m fpnqwArZyZROgLVv8XJ u4YAKhtJysFlZkNH52I VW7NTPkijChN5GiGJAg uArzDuN5b8B3Ul7TX5E KVwuoX4HWQOBJTCvxpM Q+CV68oc05G1UdGgxiF gs9MXYgHIE8kWH0wU3c NIIaJFupo2A2jXR0E3B tgtPpgq1yv9mjYTHbDW nkQ27odKGpz7C7RJQij CV3EOYapNxcBxXgnM49 Oyc+YREuuWwfe8JxIdc di3krg9yitDt5QtxlRC EwvcEpfNgmOAV1b2JuL b1gCSPelWT6wOR0sV9q UdUnHeF5LMofT145TfZ vkZPpJjziH39hO5PilO A+RJMmAuy1MGEsxDojW M1dF6LqHITzxmfoxQIg uIakVX0qPECzgsbcXID maD0dRMCoR6h6DkBfAt H4QYboM9BxLZGosxdeC v05mL5hJnKxEdD4PGyz R1XvhfC6WGVhsXFrQDo lJOJ9J11jv4Q1ISMyPP YwJUA4rIG5aQ1mpLnil jogbGVmdDsgdmVydGlj LTgqFFxuG475LNNpkFb nPkNvZGluZyBEYXRlOi AgMDYvMjYvMjAyNDwvd GQ+OJXyOPO9aPgcXLFq hJHlXAzsVj0irSfopTw yRE1nWRUcpdziVOFhvF 0dDPEowFCgoTrtPQ6cS HZahacvb072MuByJHN0 BKGviUQdU2TcjW3bCjH zXZKoHFObL4KjdNFhKG joY148OHiuDvL7AEVqi nUiN6QoBNHekVfuMpH4 c5E2Un0Rk7IwuipkE3Z moDBwRxAsIlzkEOd0B3 RkPjwvdHI+WR18BJStW N18VYo9EIR0eYxiCCip HQDeO3HchN6tSwBzKKU kZGRkOyc+PHRhYmxlIH dpZHRoPScxMDAlJyBzd MkuNN1pHu0yYBUeEHBl yQybgPWeKwUnq2cpZAD aQEmcJZ7maSnnX7CysW G8OURgl1j4Nb66O41nV 3JvdXA+DWCeeKX1uGI2 bI2eEqCgYyT1OVuoV01 5TaEkuLMwXdstp1eve7 zxrXf2McR5BIJvapViv WnqVUW4k6IxGt51P79q IHdpZHRoPSIxNSUiIHZ hqRftea2rqN6gWw8+PG AwfUS1wTL1fC7tDyKiY hE2RGyhO420VfNwjDTz Prhqa4btm0nyzQh5IvL tRBLqdzLxrYuuVIK2g0 SkHu52Y7EuqTjey7SlT qy2bh42kLSpn9S9wRD9 S3OfSFBbcumnpUNloRg jJS3eKJOpdqjdAGYihP 5xDIBsM2o7JmAuXuE2A LmaU1EixlD3TJXlhCAt CYPxnXGWfI8rexcdq0k fbzidHcXsAYJdMTv6TY z9RNQurAiwYxBgGQN3H cZ5BHT1jPDzhT4gtBng yqjiuY4pMma+SZM9qUN kaSWSHW3bYmkrhGZ+PH YdYJW8pWhjTRniRRYbi V1yDXBrC2h0NiZfZoO6 KPqmB0BubfW7IGAxfZG rMSAggYZCvH1jxsaam6 etznkxNvFhQFUeIYm7I Wv3UIJbbLoqTfRyKFY3 QtR9TRZ1cNFsiO8kvSr uczgniW0iTur+QmlydG egSYE0DSt5N5RpVeh5Q BHjxIneTE8maDPdHDzs As2voJhqfJdrBJ0xPHR ynrvaa317EeWpl8yuCX BzaQWeWEphCEZ8O57hn 5P9JOPmCKSrVIK5jRB1 nN1euPjsowwriLMlkSa gdmVydGljYWwtYWxpZ2 20GFPqlFigMxPdTFg6I 6WmNme5IAKkmIgdWU4h mVMiIVrhCj0qkXbshUs rYH2mDIVwylpkf168Rx Dia8tjSDTzeYJpMMuwR FV0T76id8D7FALnLIRv MAR1rXM3zP8hvKcrmuk gbGVmdDsgdmVydGljYW rkWTinV364XLMzmQoqK rGyfGj4M3AjRhm8XTGv kZrmXC1odALtAHodUp5 aeEefaGhuSR7gTCGrlh zhd178YkGti8ohNWVlm ADzMTytBFY3Q04tk2L6 BEKaQWJvCUB2qKD8xS7 hbGlnbjogbGVmdDsgdm VmwVqxVQvnNMibM762X HRvcDsnPlBhdGllbnQg NCxkAVr2Z0NeXlwvaAY +JL87HOJzBH20mKFyyE Glt9hjhVu8GzDlEBCnK UL6iWdmSKxze1QfDIUy I27frEZhs4V7AHQfjNj eoQUeIdRjhQH4wB6nIE gpgqgel9rczktsIzhtn 5sada21eF69G53lRPrn ZHRoPSIzMCUiIHZhbGl rcx3zdW0wYv5+PGNvbC I5uUR3jM7dLGPaJaN0M AygX917FzAyzYDpGcao m1tdd4cdlDw2CnJ7MNZ pgkClkFrhRNL9z3LxNn 64D75fBOlpVTIrUMImS FMgCFTvuZfkik0ndV9h Ii8+VMGshFA3rCS8gA1 pRsWeMaF7LVieT938Xa VjvPOsGtnbC01rW7Sza XA+HTQyTnj6EVXycYhp KX8wcYWfUNsdCh2qGIF 9UzLmYoVwOTpaZ8SbIN OujrburgseiLL9UIOeJ NSsxF84Cw8chBuwNQId hYAGhD5esklby5tpzgp eFgJhWLGaJSd5WBt5KD KouJaeQlKeUHK8YiN6B WQ0vYKxvG6msKndrftw vU3bG4JjQUSeooluGf1 7dW3jKbNcMrY5MKjaJj c+WpQUDrbiDz7MMIOXI G59DU10yQWsk2P2nJN3 F5VgXGEyreisegdrzSO 7TNObKAPsiR37jUFrIB duWm1of9O0h208RNVwQ ZZkiC63Xb2nbZgaCBAl kPGHkM9wicrkd2jkzfy sFfZrQGMzXGm6NHn0YH TktNdfIbKxPMS9TsQ0Q CM2dIKwyO4ovYpwndge gX2xOhr+MDYvMDkvMTk 0MjwvdGQ+RGTjDZX9jW njZVpmHSCdaQ5iUXJrP 6r9AvImKmZ9CJnjB3Nw BVXfutzrDp90dB5nByH jErY1RQyaM6JmkiX2BT ZsrJDwOMmzYEA6B07ym 3M5OMZoCZLpVKE5tLT6 aJ6wtQbfjefhtFKnnHs gdmVydGljYWwtYWxpZ2 46IHRvcDsnPjgyIFllY JYuKS17SO52mKAsr8D2 iJH5A0BjGFDuwobuoug ajFX8QCRbFUOgaA57gZ GkPKnxHj3vd8O4w196I LZqVCOsiL57Ze0ywRgl PIBocDAVhE3xxmacj8q mbhcsYvSvZLByGDq5YE d1MCNpvDpeDfMiOOM0E zJ0VEE1fKUomW7zwEwa obptsA2tMfp+TWFsZTw vdGQ+FGCqCTD2jJzaGG psNXAujK2rMOOqA5d3T jXdJyN3FSmcI1TjIMQd jyuoVe78xW8kHdCdTcE 5PQrwK9WbjbS2FZBatC EcDGhcZFG0Z71jy9Y4Y RLgUGKtPDH1xJT4bE2f bGlnbjogbGVmdDsgdmV ddSncODbrQHbmD104SI BhaFveVn63yMBhrSlua fE7Y7QfNkeodCX+PC90 LWYiHI71nHYnpGNgu8a ajNp4XaUuEFNfDTG7gO yqBCetg6QfGWTyK15it VUqc0I9RIVikDqgqJNy InRevKP6rE1jRHdqofp xx9igsfunHreoa1vwdi 49zM38N50pFWxtBRLkN EUtJQJzFKFmeNahpa2q yA9mKn8+KDRytOW3eWB 1zO7gHzUrCxV6LEicJ0 50UrWnjGZeZuzap0dpe 5evqKz1TpAeQPEbccUw tHztJOR1u4XhNz46S87 sIHdpZHRoPSIyMCUiIH WzsXnjnq4jpZ5dJs4+P P3fg6hqwf95rB96kYW+ XFOpCSE9tOqlMXpbMIZ ckO4rDPmpSpN4JCEvUv DzqG38mRGvWUayLe7ic ElhuFjaBB0pDBWsidmy v761NlPkr3orDGDqcDL uKOzxIOI8H62ks4K1IU AnYVQvCRB0zBL4eO4ys GlnbjogbGVmdDsgdmVy fMewVRguCXgqH561DLI olWidMcIwyBNgK1seif EXSR5yIebazAZ+PHRkI KA3nGsvAXykNTXbiE9b APFxA5g5AfQjCuK9FMp lS8TpjpG8RROusHQaIX WwxGMEoO2uurndz9zfe mmaAdLsDDXwPAf0CAa8 GQMgrOmgKzUcMGS9AwO 9EYG3sFBwzN2lwFqbmt fctB1xHbd+RklOOjwvd GQ+QWVhETS2dZenNLwg LLCtrO3dRIMjV8z2CvT zNfG5VCrbV6QhpfS1PI HzhBFdKONnpHOPyQ1cg vtjf4mxofyrAhGtOORi BLr3RNu8JCNgqVysWfY iXMH4UcZ1CXU4jEHfkP 1wcWintmpvfF4iYoo+T VJOOjwvdGQ+PHRkIHN0 hTxzCMhiUZKyhR8dSEV sR4a1HhYvBeE5XAiqC1 NdpeG7AXVwnSElJFWsb VWBkT7jrbvnr3aktufl GuFhNXQoHVg5TLo1UWX vzHbfTdCzMAF0LnC4OV W7mDUdeH1eyVsaimhao G9wOyc+HUA8OXA0DA24 SR72T6YhOfpriVQubQF +PHRhYmxlIHdpZHRoPS bfTDCnKwTjlJfoPQ9qE p1jJDRsLTNfbLmujIPy YjVsn2gqYNSlM (more content not included)... Normal [facility] Coding Summary.on 05-08-2024 Coding Summary. PYGKQcvm86POu4gFf+P GhlYWQ+QU9HMPUcP55w lKObxP1fU2HQSTmPVzl gQVBQTElOSyIgbmFtZT 1kaXNjZXJu IC8+KR8nYVYxQtvevTZ oq8G0yZU0V80spu0gBU pqbQU1WLXbWpAapxaol 6hjoOz5DPkcRnknFgHc GFZxdR38DMQ3wX08Gd1 8fNYmcTOrv0wnlOw5Yy DzPEMsAUF7uXueGHewy 2PxBDAaP31ccMSkh7J3 IGNvbGxhcHNlOyBlbXB 4uF5dSUtywrynd8vdec hwZja4jx73mLWfo4D6m DC7X3UlofE7KYFmmXWf TydotQTFyI5jxvwrc3u usijvPfKdRPJbBAc2AT d1DYUwpCqbPjIxHQ43E AN9IYFwhgPpB3FwSIUb uPveJpJ5j1Z1Ky1NH5I BBxvxW7DAYEZOPBuvmK Q+XG51ut47V4CbJapgJ yj5WYBvQNX7nCK2lC2t PLDbDXbhw7E1gHL3L7O ppgTqju5so3dhMIZbVB efB17xsWYmx6Z5YYHsw KP8APYevGyjHtKhdS36 Oyc+ROLiwOrfn2LkClo vt7zlp0jruWb7DitdDE QcjgUixWkuLOF4v6NkA n6cORTzmVI3rMT0wB4j DvWfJtO3ARruY899JwX ouEFoDbnoT26aF5IhpG A+IPRlBwp1NIQjnLulT K3eD2QzITHqpzmehUOa kQcvEI4yTJNfzporRZF bvF1sQIQiF9w0DxCoDq E3YCgaY4ChFQIcgpvnL k21iG3xSlGnSdM1NJmd L3WbslY1VEHenCDmOLf gZAG3B04jb6K8RPSgCW ZbTUN9lUC1pR3oxWydk jogbGVmdDsgdmVydGlj XAfwCOspH057TYKorOm nPkNvZGluZyBEYXRlOi AgMDYvMjUvMjAyNDwvd GQ+GMGoZOU0aVdrFDMc bRZuXBqmWw9fbKqplKn iST1iTHOacglhOCLfgI 8iDMMukDEhyVcpMW0rP TKsbmjew615XeFmBQU8 CCGnmEFoH8HuiP8bVqZ gPJGfCIIwU9QhxLYyGJ jbD042BOgkOaC3GDYyc dBlY0XqZHYfyIewCkL1 l6L6Bq8Nn5GstgqyC4K tcUYnQrEqIzahPXo6A8 RkPjwvdHI+WY58LFKoE J66XHi1JLA4hJntQKsm XZEfV1OnvH8pFnWxHIQ kZGRkOyc+PHRhYmxlIH dpZHRoPScxMDAlJyBzd TdmGE1zDc7uMEQkVDDd pRhfjCWlIxKjm5ihLQB nNKlqBT6cdEniR3SoeL C6TTSip3d7Ei93U66bX 3JvdXA+VDGtpKA6qGI3 wY6nFpXlWcQ6YCmhP48 8LgCiyABvVxxak3wch9 pvgDs0LjP4QERuziStg IeeBUB2a9BvLn90M92x IHdpZHRoPSIxNSUiIHZ uvQnfbd2foC5aIo1+PG RxaBT1oNZ9dT4kScLwY yG1VLauR469EhJgxADg Uilts9eno9cjwSo6RbQ hGTDvkoKxbCamOAI0w7 HrXm57S3ThiZpgp6DvB yh0uc84wFDrw4H3mVQ8 G7MuXJIwdudkwXReuDk yIC4bPRZpdmigUPTvfH 3wXNTmP7y7TmRuPsU2G HcnO5TgjiA0QJRnzUIv FAGjjROLkG4ltxilf7r pqrjmHsJuLIArFOr0FC z5SBRsqMbkLmBiYON2F dM5HLV3aBIdfF7xqJhb iixbkB9mQlu+SDU7vUY gaMDQHG5yPiimkRJ+PH MgMNR9hYphAGoxAWMkh L6dSZPnN3d6ZsRzFiY5 DQvlY0FbthE8JYYhjOS gASXefCFPeF8uubmsl5 xcwuoaHuNxSSVxFCw1O Zn3STRgjLzuRcHkRFD7 PfL6LIE1dWHxsY3ftHs adyemjG6eRol+QmlydG rdJVN0OKa5W5XdEhp6W UPxjMnbQG1otNSkQIqt Tf4syNifwWhfHX0rSNJ fizcdq125IrXyh2xeOL XxmZFgUDdoAEC9S96ch 7I8MTNdOJEdEBP4cKK9 xC5wwRtsibqwuEWgaQg gdmVydGljYWwtYWxpZ2 90MCFupDyfMmQjXMl3E 4FmIkq3ZCAwaKucER4e zBAwEBazKu1qbLqrmPg oNT3qOMFhxajzr421Vg Fxs4rpISXodCPdPJmgL GP4O13bb3D8FXOhOCVb MXD0vNI4xM4svAvkvbj gbGVmdDsgdmVydGljYW oeSEweN039FMCrrNouW oQynXz9M2FbRtl8MBWx cIvdEC4ntCJpHWyrLl8 fqXtnzXfwEQ5aBRCujn wkr913TfTsw5srAOYhf YJgZLdmBSE1S68ro3M0 VIFxHZCgCVM4fAI8bD6 hbGlnbjogbGVmdDsgdm WwrXbdJNriANhoT748S HRvcDsnPlBhdGllbnQg SCjeWHz8U9ShMcppkOS +IT98EEEvTP74aCXmgK Ncv0ewbRv9UhCeWUEoO AR5uWjqUKtgc0VsHYVa R49wiIPvo3V7CNHczHw ghRKjPwLltGN8jB6pOC wjqdpis1lwmbrjLgxnr 1wcuy30eV21J48fMWyi ZHRoPSIzMCUiIHZhbGl nnq7spC5bMz5+PGNvbC B7sPP0kO4dDSFoGvM8K WkbA275NlTtdTYtFkaf j2eat9pbjYv7UvN2GRT lsbFshFhfXTZ8n2KzAl 21I86cBAizZMRjHDUpW EDkLOWfrFuzkp4rlP9j Ii8+VFJdhOY1mKA2qZ8 eCwUwIkN7HMgnT815Xd VtzGOeTwqoB64oF0Mcl XA+LEJxGpw0TSIdqLyr BF4keCZhGJyxRw7kTIY 2YlLpCcIeAXmzQ6HmJO KftkfdslsqvBA1EPRfM CVnxE58Fw0ylOscMSVf kQRPfF8baqzvb8mjdrp mKqZwBJQgMAv8GFv5UN QvwGimPvSpKCL0OnY0E VY1bUHcwR3rpHnwmbhu zM4vO8WfDMKpzggyQt5 4uO2wLmZlDuP0UIrnJl c+ArIUExjdOm8YGJQIQ E17QU09bLVtb7Y7xIC7 H7ZyYDRcmjkyiqxpxQH 1UWKbEMImiZ62rLMyBJ jpNy5ba5X9f767YKAuZ ZFioI35Ct9jkGqbLJUc xDHIoT2gvtfdf9jlifp uOzEzTXTnTGo6PKv5FO GklTffRoAyUAL3LoR2B MY6qDThbT9kaDmoxzdf uB9eHkv+MDYvMDkvMTk 0MjwvdGQ+SWWrKEG8mH feFOorOKGqsC5kOPJyB 7d6FsOpXbL2LQrcC1Dh NKCwscdcGq67cG5mWiT lAaN1WNesF0WbxbL5NH UkoEPtPJljBTM8J97sl 2H0RKJcAFTzFVZ0rJJ5 kE5jyEswywbnnGDyyLk gdmVydGljYWwtYWxpZ2 46IHRvcDsnPjgyIFllY MAuVD44SD88tRRge3G6 dPK5F4LkHIHwkntzjse kyGT9HGZtNSIpuL66jF JvMMoqOe1fr7M4t009Y DOiANUvdB95Mb6wsXxh MBJfdYQLlE9cwvarq1r megrjRoClAQAeDPx5IO n1HVEdcLfhLcUpPJJ4Z iW5VMN3hCHktF0xwAke vbdyqA7lZyb+TWFsZTw vdGQ+RPKbBND0mDxtZO iiWSZelB5nRETbS1h6A cLdVeN8XIeeE9UkSWOo hexyOu93jV9bKjHuDnE 1YXqmP6KebiN1VIUpkF SsXVfjDQC2X46jl4W3W OTcDCWsHDC4bUR4wH5n bGlnbjogbGVmdDsgdmV osYcmJEygASnfG084IJ ZeoXxyKltrUhSWul8eC R9gUztglTC+EE04rz23 X9NzAeziPbs8OJDeCJB 0jXH4xI4sDSPpEQpkf0 T7xGR7B3PyafKxdr9lc 0lhJOZfGOcfB57zxNKt t5Z7ZQUymIN1QSLnkYi wQxNelH94Auf+PGNvbG ffl9DqUayyf3vsm8iyp Hy8GaXiAYTlqeFjoMdu ZKF2h0CdWl32M18rZLa pZHRoPSIzMCUiIHZhbG rwss2byT9fOv4+PGNvb ZW3nHH6rD1lBzAqCxG2 KYvjN638HkNvxYOyQgn ss0sda4ltfZw9YyAgNE EoukWsyMmfLCZ0e2PtM q99N6ShzCqta3RxUcb2 gr17cHSrw3K1oGA8C5M hZGRpbmctbGVmdDogMC 5yDOQmkqxvBZVofF0lL QUyQ2p9KiJdQqR0ZOcn K0GsabC3SNWhwABuTUB tjRYCcW6hpjkwe0vtev bgHhAiBPPuDXi0YJn7M DLffEuqBeMrSQW0RbV6 GAS1fSSfwT7omGuagqh vrF2wRbf+ZFe4a2xypT KzYV2auWU9SV92ZV84m IRvf3X9zZM6E5EaRGJa wdtlvqfvmKI5GZWpBTQ mkA43Ub4icYbxDx8xSR ZlCPL3LHLmhDKvU8Bxa T2mBzCzGGAjCLZlP7Uf zHDoVJjtN747JAmrDfG 9OTZqhhCmP0CnLOZdkT pcJbW0y7J6Jd9CFM68G Z53SN88pIHvm1K4ePI2 C6JqGBYjwxlxeegieEP 7VJRuJIVedM20Lz2hbE izVb9wGHRxLAA4UIQfn MJeB7NvrL5lMxXwMWRn POSzL7EixYIoMNamT20 5ZUvdHcI2GZMqvaMrZ6 QhQOEbkZzxPpE0a1Y2G c3UZf11GS45VH85aNIu m3F9pKK1I2SxGKItqbn ozjzweVN3RIPzOWYquG 41If4edFdxAn7nVAZdN ZE4PENczMRcG8WqsJ9j KpDiLSMeSGWzV1VucXX eIGcsE553IRwnZdC1YT ZyjbLbX9CaMGItoHjwR aK4g0D9Of4BZZsgvys0 F3XrDkqruFZ+FY81IXC mAC37lAUwcOJye6lbuC z8LkLgOVLoQLM5nDagV Iuzc3TyPMZwB90gzHWs e1T4NPDdnHfou (more content not included)... Normal [facility] Consultation Noteon 05-07-20 Consultation Note [id number] D#1.00TIFF Normal [facility] Ambulatory Visit Summaryon 0 05-03-2024 Ambulatory Visit [...] Ericka COHN, Kashif Craig Where: [facility]23 9:15 AM EST With: Adam COHN, Kylah Cole Where: [facility] Normal [address] [place] [address]- \.br\ Medications\.br\ What How Much When Instructions\.br\ [...] to adjust your dosage.\.br\ ? \.br\ Take sbim-flx-iahakuf and prescription medicines only as told by [...] Exercise regularly, as told by your heal [facility] Ambulatory Visit Summary DARIEL ZABALA :1940 Visit [...] Ericka COHN, Kashif Craig Where: [facility]23 9:15 AM EST With: Kylah Garcia MD Where: [facility] Normal [address] [place] [id number] \.br\ Medications\.br\ What How Much When Instructions\.br\ [...] of cylinders, a pump, and a reservoir. [facility] Family [facility] Office/Clini c Noteon 05-03-2024 Family [...] : No Organ Donation Consent : No Martha Abdullahi LPNvarinder Nickerson - 05/03/2024 8:01 EDT Procedures / Surgeries FT - Procedure History (As Of: 05/03/2024 09:05:32 EDT) Anesthesia Minutes: 0 ; Procedure Name: Surgery, neck X 2 ; Procedure Minutes: 0 ; Last Reviewed Dt/Tm: 05/03/2024 08:24:28 EDT Procedure Dt/Tm: 03/26/2024 ; Location: [facility] ; Anesthesia Minutes: 0 ; Procedure Name: [...] Never Problems using the telephone : Never Bradly DELA CRUZ Renetta L - 05/03/2024 8:01 EDT Confident you control health problems : Very confident Difficulties driving your car? : No Seatbelts : I always fasten my seat belt Bradly DELA CRUZMarthavarinder Nickerson - 05/03/2024 8:01 EDT Depression Screening (more content not included)... 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 Normal [facility] Comment on above: Result [...] night-lights. ? Place frequently used items in mxef-mb-fdhfe places. Lower the shelves around your home [...] the way. ? Do not use floor pashto or wax that makes floors slippery. If [...] include working with a physical therapist or program trainer to improve your strength, balance, and endurance. Where to find more information ? Centers for Disease Control and Prevention, [place]: www.cdc.gov ? National [place] [employer] Aging: www.kieran.nih.gov Contact a health care [...] health ca (more content not included)... Normal [facility] Patient Education Urology Erectile Dysfunction Erectile dysfunction [...] these instructions at home: Medicines ? Take krno-iln-vszbcos and prescription medicines only as told by [...] include cig (more content not included)... Normal [facility] Screenson 05-03-2024 Screens [id number] 2#1.00TIFF Normal [facility] CBC w/ Auto Diffon 4 Basophils/100 WBC (Bld) 0.9 % Normal 0.0-2.0 [facility] Comment on above: Performed By: #### 2 [id number] #### [facility] [address] [place] [address] Basophils/Leukocytes Auto (Bld) [Pure # fraction] 0.0 E9/L Normal 0.0-0.2 [facility] Comment on above: Performed By: #### 2 [id number] #### [facility] [address] [place] [address] Eosinophils (Bld) [#/Vol] 0.1 E9/L Normal 0.0-0.5 [facility] Comment on above: Performed By: #### 2 [id number] #### [facility] [address] [place] [address] Eosinophils/100 WBC (Bld) 2.4 % Normal 0.0-8.0 [facility] Comment on above: Performed By: #### 2 [id number] #### [facility] [address] [place] [address] Erythrocyte distribution width (RBC) [Ratio] 14.4 % High 10.9-14.2 [facility] Comment on above: Performed By: #### 2 [id number] #### [facility] [address] [place] [address] Hematocrit (Bld) [Volume fraction] 42.2 % Normal 37.7-49.0 [facility] Comment on above: Performed By: #### 2 [id number] #### [facility] [address] [place] [address] Hemoglobin (Bld) [Mass/Vol] 14.0 g/dL Normal 13.5-17.5 [facility] Comment on above: Performed By: #### 2 799825 #### [facility] [address] [place] [address] Lymphocytes (Bld) [#/Vol] 1.4 E9/L Normal 1.0-4.0 [facility] Comment on above: Performed By: #### 2 [id number] #### [facility] [address] [place] [address] Lymphocytes/100 WBC (Bld) 34.0 % Normal 14.0-50.0 [facility] Comment on above: Performed By: #### 2 880657 #### [facility] [address] [place] [address] MCH (RBC) [Entitic mass] 30.8 pg Normal 27.0-34.0 [facility] Comment on above: Performed By: #### 2 846348 #### [facility] [address] [place] [address] MCHC (RBC) [Mass/Vol] 33.1 g/dL Normal 31.4-36.0 [facility] Comment on above: Performed By: #### 2 711746 #### [facility] [address] [place] [address] MCV (RBC) [Entitic vol] 92.9 fL Normal 80.0-100.0 [facility] Comment on above: Performed By: #### 2 730978 #### [facility] [address] [place] [address] Monocytes (Bld) [#/Vol] 0.4 E9/L Normal 0.2-1.0 [facility] Comment on above: Performed By: #### 2 901116 #### [facility] [address] [place] [address] Neutrophils (Bld) [#/Vol] 2.2 E9/L Normal 2.0-7.5 [facility] Comment on above: Performed By: #### 2 196561 #### [facility] [address] [place] [address] Neutrophils/100 WBC (Bld) 53.4 % Normal 36.0-75.0 [facility] Comment on above: Performed By: #### 2 410984 #### [facility] [address] [place] [address] Platelet 166.0 E9/L Normal 150.0-500.0 [facility] Comment on above: Performed By: #### 2 885698 #### [facility] [address] [place] [address] Platelet mean volume (Bld) [Entitic vol] 9.8 fL Normal 6.4-10.8 [facility] Comment on above: Performed By: #### 2 343723 #### [facility] [address] [place] [address] RBC (Bld) [#/Vol] 4.5 E12/L Normal 4.3-5.9 [facility] Comment on above: Performed By: #### 2 980250 #### [facility] [address] [place] [address] WBC corrected for nucl RBC Auto (Bld) [#/Vol] 4.2 E9/L Normal 4.0-11.0 [facility] Comment on above: Performed By: #### 2 689258 #### [facility] [address] [place] [address] CHEMISTRYOrdered By: SYSTEM SYSTEM on 05-01-2024 Albumin [...] used for this result was chemiluminescence using [employer] Access Hybritech PSA reagent. Protein [Mass/Vol] 7.1 [...] 05-01-2024 Albumin [Mass/Vol] 4.2 g/dL Normal 3.3-5.0 [facility] Comment on above: Performed By: #### 2 528784 #### [facility] [address] [place] [address] Albumin/Globulin (S) [Mass conc ratio] 1.4 Normal 1.1-2.2 [facility] Comment on above: Performed By: #### 2 434364 #### [facility] [address] [place] [address] ALP [Catalytic activity/Vol] 83 Int._Unit/L Normal 21-98 [facility] Comment on above: Performed By: #### 2 362029 #### [facility] [address] [place] [address] ALT No additional P-5'-P [Catalytic activity/Vol] 14 Int._Unit/L Normal 6-46 [facility] Comment on above: Performed By: #### 2 244727 #### [facility] [address] [place] [address] Anion gap [Moles/Vol] 10 mmol/L Normal 6-16 [facility] Comment on above: Performed By: #### 2 347174 #### [facility] [address] [place] [address] AST [Catalytic activity/Vol] 22 Int._Unit/L Normal 5-43 [facility] Comment on above: Performed By: #### 2 580589 #### [facility] [address] [place] [address] Bilirubin [Mass/Vol] 0.9 mg/dL Normal 0.0-1.1 [facility] Comment on above: Performed By: #### 2 368395 #### [facility] [address] [place] [address] Calcium [Mass/Vol] 9.5 mg/dL Normal 8.9-11.1 [facility] Comment on above: Performed By: #### 2 356871 #### [facility] [address] [place] [address] Chloride [Moles/Vol] 103 mmol/L Normal 101-111 [facility] Comment on above: Performed By: #### 2 392923 #### [facility] [address] [place] [address] CO2 [Moles/Vol] 29 mmol/L Normal 21-31 [facility] Comment on above: Performed By: #### 2 523638 #### [facility] [address] [place] [address] Creatinine [Mass/Vol] 1.1 mg/dL Normal 0.5-1.3 [facility] Comment on above: Performed By: #### 2 051909 #### [facility] [address] [place] [address] Globulin (S) [Mass/Vol] 2.9 g/dL Normal 1.4-4.0 [facility] Comment on above: Performed By: #### 2 486361 #### [facility] [address] [place] [address] Glucose [Mass/Vol] 104 mg/dL Normal 55-199 [facility] Comment on above: Performed By: #### 2 282402 #### [facility] [address] [place] [address] Potassium [Moles/Vol] 5.2 mmol/L Normal 3.5-5.3 [facility] Comment on above: Performed By: #### 2 137457 #### [facility] [address] [place] [address] Protein [Mass/Vol] 7.1 g/dL Normal 6.0-7.8 [facility] Comment on above: Performed By: #### 2 162140 #### [facility] [address] [place] [address] Sodium [Moles/Vol] 137 mmol/L Normal 135-145 [facility] Comment on above: Performed By: #### 2 980776 #### [facility] [address] [place] [address] Urea nitrogen [Mass/Vol] 15 mg/dL Normal 5-21 [facility] Comment on above: Performed By: #### 2 070482 #### [facility] [address] [place] [address] Urea nitrogen/Creatinine [Mass ratio] 14 No Units Normal 10-20 [facility] Comment on above: Performed By: #### 2 618105 #### [facility] [address] [place] [address] Consent for Treatmenton 04-14 Consent for Treatment [id number] 72#1.00TIFF Normal [facility] HEMATOLOGYOrdered By: SYSTEM SYSTEM on 05-01-2024 Basophils/100 [...] Remisol Heme Lab Reportson 05-01-2024 Lab Reports [id number] E#1.00TIFF Normal [facility] Lipid Panelon 05-01-2024 Cholesterol [Mass/Vol] 168 mg/dL Normal 120-200 [facility] Comment on above: Performed By: #### 2 023296 #### [facility] [address] [place] [address] Cholesterol in HDL [Mass/Vol] 54 mg/dL Invalid Interpretation Code [facility] Comment on above: Result Comment: '>= 60 LOW RISK' '<= 40 HIGH RISK' Performed By: #### 2 266500 #### [facility] [address] [place] [address] Cholesterol in LDL [Mass/Vol] 99 mg/dL Normal <=129 [facility] Comment on above: Performed By: #### 2 980959 #### [facility] [address] [place] [address] Cholesterol in VLDL [Mass/Vol] 16 mg/dL Normal 7-40 [facility] Comment on above: Performed By: #### 2 059539 #### [facility] [address] [place] [address] Triglyceride [Mass/Vol] 78 mg/dL Normal <=149 [facility] Comment on above: Performed By: #### 2 238192 #### [facility] [address] [place] [address] Nurse Consultation Noteon Nurse Consultation Note Reason [...] influenza virus vaccine, inactivated 08/02/2014 Recorded Normal [facility] PSA Screen, Totalon 05-01-20 24 Prostate specific Ag [Mass/Vol] 1.3 ng/mL Normal 0.1-3.5 [facility] Comment on above: Result Comment: The concentration of PSA determined by different manufacturers can vary due to differences in assay methods and reagent specificity. Values obtained from different assay methods cannot be used interchangeably. The methodology used for this result was chemiluminescence using [employer] Access Hybritech PSA reagent. Performed By: #### 1 [id number] #### [facility] [address] [place] [address] eGFRon 05-01-2024 eGFR 67 mL/min/1.73 m2 Normal >=59 [facility] Comment on above: Order Comment: Order added by Discern Expert. Performed By: #### 1 [id number] ####[facility] [address] [place] [address] Physician Orderon 04-23-2024 Physician Order [id number] 859#1.00TIFF Normal [facility] Consent for Treatmenton Consent for Treatment [id number] #1.00TIFF Normal [facility] Heart and Vascular Office/Cl inic Noteon 04-20-2024 [...] or orthopnea. 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 with garment parts cutter hand, location unknown, however, has not been followed [...] influenza virus vaccine, inactivated 08/02/2014 Recorded Normal [facility] Comment on above: Result Comment: Elec tronically Signed By: Ericka COHN, Kashif Craig\.br\Date and Time Signed: 04/20/24 13:49 EDT Insurance Correspondenceon 0 04-20-2024 Insurance Correspondence [id number] 559#1.00TIFF [facility] Consultation Noteon 04-10-20 Consultation Note [id number] 1#1.00TIFF [facility] Postoperative Documentson Postoperative Documents [id number] 811#1.00TIFF [facility] Consultation Noteon 03-29-20 Consultation Note [id number] B4#1.00TIFF [facility] Lab Reportson 03-29-2024 Lab Reports [id number] DF#1.00TIFF [facility] RAD - MISCon 03-29-2024 RAD - MISC [id number] 19#1.00TIFF [facility] IntraOperative Documentson 0 03-28-2024 IntraOperative Documents [id number] 516#1.00TIFF [facility] Consent for Anesthesiaon Consent for Anesthesia [id number] 28#1.00TIFF Normal [facility] Discharge Instructionson Discharge Instructions [id number] 47#1.00TIFF Normal [facility] IntraOperative Documentson 0 03-27-2024 IntraOperative Documents [id number] 36#1.00TIFF Normal [facility] Main OR Intraoperative Recor don 03-27-2024 Main OR Intraoperative Record IntraOp Document Type FT Summary Primary Physician: Axel Hernández DO Finalized Date/Time: 03/27/24 09:11:12 Pt. Name: DARIEL ZABALA/Sex: 1940 Male Med Rec #: [id number] Physician: Axel Hernández DO Financial #: [id number] Pt. Type: A Room/Bed: [facility] [...] T Role Performed Anesthesiologist Surgeon - Primary Custom Garment Designer - Primary Director Of Adult Epilepsy Time In 03/26/24 12:20:00 03/26/24 12:20:00 03/26/24 [...] A Krupp RN, Rich Nickerson Role Performed BOWLING ALLEY ATTENDANT/SA Scrub - Primary Staff - Other Time [...] Yes Time Out Davie Driver, Given Participants Edgar DO, Axel Smalls, Ambrocio Borges, Shola STEEL, Nidhi Gautam Madison A Time Out Complete [...] Procedure Yes Primary Surgeon Axel Hernández DO Serina Start 03/26/24 12:35:00 Stop 03/26/24 12:45:00 Anesthesia [...] and tissue Entry 1 Skin Integrity Intact, [place], Warm, and Skin Abnormality No Dry Outcomes Met? Yes Last Modified By: Ambrocio Borges 03/26/24 12:36:42 Post-Care Text: The patient is free from signs and symptoms of injury caused by extraneous objects Patient Positioning FT Pre-Care Text: Identifies physical alterations that require additional precautions for procedure-specific positioning, verifies presence of prosthetics or correctiv (more content not included)... Normal [facility] Operative Reporton Operative Report SURGERY DATE: 03/26/2024 C.O.D. CLERK: Chica Jolley C.F.A. PREOPERATIVE DIAGNOSIS: Right little [...] patient's condition satisfactory Deanna Weller Dictated: 03/26/2024 [id number] Transcribed: 03/26/2024 cc:Kylah Garcia M.D. Normal [facility] Comment on above: Result Comment: Elec tronically Signed By: Axel Hernández DO.br\Date and Time Signed: 03/27/24 07:40 EDT Preoperative Documentson Preoperative Documents [id number] 14#1.00TIFF Normal [facility] Progress Note-Physicianon Progress Note-Physician [...] 2 causing vascular disease / SNOMED CT 771547584 / Confirmed Trigger finger / SNOMED CT 827294187 / Confirmed Syncope / SNOMED CT 526227115 / Confirmed Body mass index (BMI) of 25.0-25.9 in adult / SNOMED CT 2510561893 / Confirmed Osteoarthritis / SNOMED CT 6648942717 / Confirmed Encounter for surveillance of abnormal nevi / SNOMED CT 5947838061 / Confirmed Laceration of head / SNOMED CT 8695436546 / Confirmed Hyponatremia / SNOMED CT 249621047 / Confirmed Hyperlipidemia / SNOMED CT 00540440 / Confirmed Fall at home / SNOMED CT 12856163 / Confirmed ED (erectile dysfunction) / SNOMED CT 9344440855 / Confirmed Carpal tunnel syndrome, left / SNOMED CT 04630479 / Confirmed Afib / SNOMED CT 21934068 / Confirmed ASCVD (arteriosclerotic cardiovascular disease) / SNOMED CT 988581939 / Confirmed Histories Procedure history: Surgery, neck X 2 ([id number]). Carpal tunnel release (362662555). Social History Social & Psychosocial Habits Alcohol [...] adequate air exchange. Cardiovascular: Regular rhythm. Plan [place] [employer]esthesiologists (ASA) physical status classification: Class III. Anesthetic Preoperative Plan: Anesthesia General. [facility] Comment on above: Result Comment: [...] meets criteria ( To home ). Normal [facility] Comment on above: Result Comment: Elec tronically Signed By: Chau Cardona Jr, DO\.claudio\Date and Time Signed: 03/27/24 12:32 EDT CHEMISTRYOrdered By: Sara ROP User on 03-26-2024 Glucose [Mass/Vol] 92 mg/dL Normal 55 - 99 mg/dL [facility] POC Subsection Comment on above: Result Comment: Justine garcia RN/ POC Device SN [id number] 1 Invalid Interpretation Code [facility] POC Subsection POC User ID [id number] 1 Invalid Interpretation Code [facility] POC Subsection POC Username LORNA WILSON Invalid Interpretation Code [facility] POC Subsection COAGULATIONOrdered By: Toshia Tadeo on 03-26-2024 aPTT Coag (PPP) [Time] 35.8 s Normal 25.1 - 36.5 second(s) [facility] Auto Coag Comment on above: Interpretive Data: [...] the same coagulation reagent and instrumentation as [facility]. Currently there are no coagulation studies available worldwide for children to 14 days, and no normal ranges. Heparin therapeutic range (represented by Anti-Factor Xa activity of 0.2 - 0.4 U/mL) corresponds to PTT of 56.6 - 109.0 sec. PT Coag (PPP) [Time] 13.4 s High 9.4 - 1 2.5 second(s) [facility] Auto Coag Comment on above: Interpretive Data: [...] the same coagulation reagent and instrumentation as [facility]. Currently there are no coagulation studies available worldwide for children to 14 days, and no normal ranges. Capillary Glucose POCon 03-14 Glucose [Mass/Vol] 92 mg/dL Normal 55-99 [facility] Comment on above: Result Comment: Justine garcia RN/ Performed By: #### 2 [id number] #### [facility] [address] [place] [address] Consent for Procedure/Surger yon 03-26-2024 Consent for Procedure/Surgery [id number] 421#1.00TIFF Normal [facility] Consent for Treatmenton 03-14 Consent for Treatment [id number] E9#1.00TIFF Normal [facility] Discharge Instructionson Discharge Instructions DARIEL ZABALA :1940 Visit Date:03/26/2024 Inpatient Discharge Instructions Your Care Team Admitting Physician - Axel Hernández DO Referring Physician - Axel Hernández DO Reason for Your Visit RIGHT LITTLE FINGER TRIGGER FINGER Your Diagnosis Trigger finger, right little finger This Is Your Medications List Turmeric (Turmeric 500 mg oral capsule) acetaminophen-hydro codone ([place] 325 mg-5 mg oral tablet) atenolol (atenolol [...] AM EDT Comments: Keep scheduled appointment Where: [address] [place] [address]- [facility] (1) Medications What How Much When Why Instructions Next Dose Unchanged acetaminophen-hydro codone ([place] 325 mg-5 mg oral tablet) See instructions Trigger finger, right little finger 1 tab(s) Oral q4hr PRN Pain. Duration 7 days. Pickup at [facility]/pharmacy #[id number] Unchanged atenolol (atenolol 25 mg Tab) 1 [...] By Mouth Every day Pharmacy Information [facility]/pharmacy #[id number]: [address], [place] [id number] [phone] Problems Ongoing - Any problem that you [...] and med (more content not included)... Normal [facility] Comment on above: Result Comment: Elec tronically Signed By: Sloan KHAN, Rudy Pereira\.br\Date and Time Signed: 03/26/24 14:03 EDT H&P Updateon 03-26-2024 H&P Update [id number] 633#1.00TIFF Normal [facility] Main OR PACU I Recordon 03-14 Main OR PACU I Record PACU Phase I Document Type FT Summary Primary Physician: Axel Hernández DO Finalized Date/Time: 03/26/24 13:38:42 Pt. Name: DARIEL ZABALA/Sex: 1940 Male Med Rec #: [id number] Physician: Axel Hernández DO Financial #: [id number] Pt. Type: A Room/Bed: [facility] [...] By: Vicki Sethi RN 03/26/24 13:38 Normal [facility] Main OR PACU II Recordon Main OR PACU II Record PACU Phase II Document Type FT Summary Primary Physician: Axel Hernández DO Finalized Date/Time: 03/26/24 16:11:30 Pt. Name: DARIEL ZABALA/Sex: 1940 Male Med Rec #: [id number] Physician: Axel Hernández DO Financial #: [id number] Pt. Type: A Room/Bed: [place] [address] Admit/Disch: 03/26/24 09:11:44 - 03/26/24 14:30:00 Institution: [...] By: Rudy Lisa RN 03/26/24 16:11 Normal [facility] Main OR Preoperative Recordo n 03-26-2024 Main OR Preoperative Record PreOp Document Type FT Summary Primary Physician: Axel Hernández DO Finalized Date/Time: 03/26/24 13:07:41 Pt. Name: DARIEL ZABALA/Sex: 1940 Male Med Rec #: [id number] Physician: Axel Hernández DO Financial #: [id number] Pt. Type: A Room/Bed: Admit/Disch: 03/26/24 09:11:44 - Institution: Case Times PreOp FT Pre-Care Text: Verifies consent for planned procedure, identifies individual values and wishes concerning care, includes family members in perioperative teaching Entry 1 Patient Times. In Pre Surgery 03/26/24 09:30:00 Out Pre Surgery 03/26/24 12:18:00 Outcomes Met? Yes Last Modified By: Ambroico Borges 03/26/24 13:05:21 Post-Care Text: The patient participates in decisions affecting his or her perioperative plan of care Finalized By: Ambrocio Borges Document Signatures Signed By: Ambrocio Borges 03/26/24 13:05 Ambrocio Borges 03/26/24 13:07 Normal [facility] Monitor Recordon 03-26-2024 Monitor Record [id number] 220#1.00TIFF Normal [facility] Monitor Record [id number] 270#1.00TIFF Normal [facility] PT & PTTon 03-26-2024 aPTT Coag (PPP) [Time] 35.8 second(s) Normal 25.1-36.5 [facility] Comment on above: Result Comment: Para meter [...] the same coagulation reagent and instrumentation as [facility]. Currently there are no coagulation studies available worldwide for children to 14 days, and no normal ranges. Heparin therapeutic range (represented by Anti-Factor Xa activity of 0.2 - 0.4 U/mL) corresponds to PTT of 56.6 - 109.0 sec. Performed By: #### 1 [id number] ####[facility] [address] [place] [address] PT Coag (PPP) [Time] 13.4 second(s) High 9.4-12.5 [facility] Comment on above: Result Comment: 15 d [...] the same coagulation reagent and instrumentation as [facility]. Currently there are no coagulation studies available worldwide for children to 14 days, and no normal ranges. Performed By: #### 1 [id number] ####[facility] [address] [place] [address] PT & PTTOrdered By: Starr linda on 03-26-2024 INR Coag (PPP) [Relative time] 1.19 {INR} Invalid Interpretation Code [facility] Auto Coag Comment on above: Interpretive Data: [...] 3.0 ? 4.5 Performed By: #### 1 [id number] ####[facility] [address] [place] [address] Patient Education - Texton 0 03-26-2024 Patient [...] ? 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 ? Having rheumatoid arthritis, gout, or [...] on your hand. General instructions ? Take lgwr-nlx-cevdjde and prescription medicines only as told by [...] care provide (more content not included)... Normal [facility] Ambulatory Visit Summaryon 0 03-20-2024 Ambulatory Visit [...] Appointments Tuesday 12:30 PM EDT With: Where: [facility] Tuesday 9:00 AM EDT With: Where: [facility] Invalid Interpretation Code [address] [place] [address]- \.br\ 2023 9:00 AM EDT \.br\ With: Kylah Garcia MD\.br\ Where: [facility] Consent for Procedure/Surger yon 03-20-2024 Consent for Procedure/Surgery [id number] 969#1.00TIFF Normal [facility] Medicine Office/Clini c Noteon 03-20-2024 Family Medicine Office/Clinic Note HPI Staff Dariel is an 83 year old male presenting for ER follow up needs his andre removed ER followup: Hospital: [facility] Visit date: 03/10/24 Symptoms the patient presented [...] - Hold coumadin tomorow for surgery Ordered: [facility] Internal Ambulatory Referral 2. Fall at home (W19.XXXA: Unspecified fall, initial encounter) - 2/2 syncope - Nausea before syncope - Will refer to Cardio for evaluation of continues syncope Ordered: [facility] Internal Ambulatory Referral 3. Laceration of head (S01.91XA: Laceration without foreign body of unspecified part of head, initial encounter) - Stables removed - no issues. Ordered: [facility] Internal Ambulatory Referral 4. Syncope (R55: Syncope and collapse) - Will send to Cardio for further work up Ordered: [facility] Internal Ambulatory Referral 5. Hyponatremia (E87.1: Hypo-osmolality and hyponatremia) - Recheck BMP today - Follow up with Nephrology Ordered: [facility] Internal Ambulatory Referral 6. Over weight (E66.3: [...] influenza virus vaccine, inactivated 08/02/2014 Recorded Normal [facility] Comment on above: Result Comment: Elec tronically Signed By: Adam COHN, Kylah Cole\.br\Date and Time Signed: 03/20/24 15:31 EDT Inpatient Patient Summaryon 03-20-2024 Inpatient Patient Summary [facility] [address] [place], [place] [address] [facility] Clinical Discharge Instructions PERSON INFORMATION Name: DARIEL ZABALA [facility]#:[id number] PHYSICIANS Admitting Physician: Axel Hernández DO Attending Physician: Axel Hernández DO PCP: Kylah Garcia MD Discharge Diagnosis: Trigger finger, right little finger Comment: PATIENT EDUCATION INFORMATION Instructions: Trigger Finger Medication Leaflets: Follow up: With: Address: When: Axel Hernández [address] [place] [id number] [facility] () Comments: Keep scheduled appointment Type Location Start Finish [facility] Surgery [facility] Surgical Services 03/26/2024 12:30 PM 03/26/2024 12:45 PM Confirmed FM Lab Draw [facility] 05/01/2024 9:00 AM 05/01/2024 9:20 AM Confirmed FM Medicare Wellness Subsequent [facility] 05/03/2024 8:00 AM 05/03/2024 9:00 AM Confirmed FM Open [facility] 05/03/2024 9:00 AM 05/03/2024 9:15 AM Confirmed [...] mg oral capsule) ubiquinone (CoQ10) Comment: Normal [facility] Outpatient Surgery Discharge Instructionon 03-20-2024 Outpatient Surgery Discharge Instruction [place] [id number] Patient Discharge Instructions PERSON INFORMATION Name: DARIEL [...] Follow up: With: Address: When: Axel Hernández [address] [place], [place] [id number] [facility] (1) Comments: Keep scheduled appointment Type Location Start [facility] Surgery [facility] Surgical Services 03/26/2024 12:30 PM 03/26/2024 12:45 PM Confirmed FM Lab Draw [facility] 05/01/2024 9:00 AM 05/01/2024 9:20 AM Confirmed FM Medicare Wellness Subsequent [facility] 05/03/2024 8:00 AM 05/03/2024 9:00 AM Confirmed FM Open [facility] 05/03/2024 9:00 AM 05/03/2024 9:15 AM Confirmed [...] to serve you. Thank you for choosing [facility] HERE ARE THE MEDICATION CHANGES THAT OCCURRED [...] finger ca (more content not included)... Normal [facility] ECG 12-Leadon 03-12-2024 ECG 12-Lead [id number] EC#1.00TIFF Normal [facility] ED Note-Physicianon 03-12-20 24 ED Note-Physician [id number] A7#1.00TIFF Normal [facility] RAD - CT Reporton 03-12-2024 RAD - CT Report [id number] 20#1.00TIFF Normal [facility] RAD - CT Report [id number] A4#1.00TIFF Normal [facility] RAD - MISCon 03-12-2024 RAD - MISC [id number] 55#1.00TIFF Normal [facility] Ambulatory Visit Summaryon 0 03-08-2024 Ambulatory Visit [...] Appointments Tuesday 1:45 PM EDT With: Where: [facility] Surgical Services Tuesday 9:00 AM EDT With: Where: [facility] Invalid Interpretation Code [address] [place] [address]- \.br\ 2023 9:00 AM EDT \.br\ With: Adam COHN, Kylah Cole\.br\ Where: [facility] Medicine Office/Clini c Noteon 03-08-2024 Family Medicine Office/Clinic Note HPI Staff Dariel is an 83 year old male presenting for surgical clearance Needs clearance and hold coumadin in writing and faxed to Dr Hernández at [phone] Note: he would really benefit for chronic care management if he qualifies ( he walks in here at least once a week with questions Date of surgery: March 26, 2024 Surgeon: Dr Hernández Hospital: [facility] Type of Surgery: rt little finger trigger [...] disorder) - Will send to Derm. Ordered: [facility] External Ambulatory Referral Follow-up No qualifying data [...] virus vaccine, inactivated 08/02/2014 Recorded Normal [facility] Comment on above: Result Comment: [...] numbers. This can be done either in [place] ([place] or metric measurements. Note that charts and online BMI calculators are available to help you find your BMI quickly and easily without having to do these calculations yourself. To calculate your BMI in [place] ([place] measurements: 1. Measure your weight in [...] for Disease Control and Prevention: www.cdc.gov ? [place] Heart Association: www.heart.org ? National Heart, Lung, and Blood [place]: www.nhlbi.nih.gov Summary ? Body mass index (BMI) is a number that is calculated from a person's weight and height. ? BMI may help estimate how much of a person's weight is composed of fat. BMI can help identify those who may be at higher risk for certain medical problems. ? BMI can be measured using [place]i measurements or metric measurements. ? BMI charts are used to identify whether you are underweight, normal weight, overweight, or obese. This information is not intended to replace advice given to you by your health care provider. Make sure you discuss any questions you have with your health care provider. Document Revised: 07/23/2020 Document Reviewed: 05/30/2020 [employer] Patient Education ? 2022 [employer]). Normal [facility] Physician Referralon 024 Physician Referral [id number] 859#1.00TIFF [facility] XR Chest 2 Viewson 4 XR [...] mGy = na DAP = na Normal [facility] BMPon 03-06-2024 Anion gap [Moles/Vol] 10 mmol/L Normal 6-16 [facility] Comment on above: Performed By: #### 1 9169436, 2324323, 9532248 ####[facility] [address] [place] [address] Calcium [Mass/Vol] 9.1 mg/dL Normal 8.9-11.1 [facility] Comment on above: Performed By: #### 1 5067338, 1129689, 9705815 ####[facility] [address] [place] [address] Chloride [Moles/Vol] 102 mmol/L Normal 101-111 [facility] Comment on above: Performed By: #### 1 1926400, 3078148, 2880770 ####[facility] [address] [place] [address] CO2 [Moles/Vol] 28 mmol/L Normal 21-31 [facility] Comment on above: Performed By: #### 1 0324830, 4936794, 6119904 ####[facility] [address] [place] [address] Creatinine [Mass/Vol] 1.0 mg/dL Normal 0.5-1.3 [facility] Comment on above: Performed By: #### 1 0440608, 1170678, 2501131 ####[facility] [address] [place] [address] Glucose [Mass/Vol] 98 mg/dL Normal 55-199 [facility] Comment on above: Performed By: #### 1 1106397, 5385141, 4896212 ####[address] [address] Potassium [Moles/Vol] 4.3 mmol/L Normal 3.5-5.3 [facility] Comment on above: Performed By: #### 1 7903260, 9261336, 7171606 ####[address] [address] Sodium [Moles/Vol] 136 mmol/L Normal 135-145 [facility] Comment on above: Performed By: #### 1 6650770, 7419586, 9050637 ####[address] [address] Urea nitrogen [Mass/Vol] 14 mg/dL Normal 5-21 [facility] Comment on above: Performed By: #### 1 6181345, 5490535, 8744213 ####[address] [address] Urea nitrogen/Creatinine [Mass ratio] 14 No Units Normal 10-20 [facility] Comment on above: Performed By: #### 1 7894674, 5412383, 8092424 ####[address] [address] CBC w/ Auto Diffon 4 Basophils/100 WBC (Bld) 1.0 % Normal 0.0-2.0 [facility] Comment on above: Performed By: #### 1 8474357, 1923242, 7062205 ####[address] [address] Basophils/Leukocytes Auto (Bld) [Pure # fraction] 0.0 E9/L Normal 0.0-0.2 [facility] Comment on above: Performed By: #### 1 1304901, 9812593, 0855454 ####[address] [address] Eosinophils (Bld) [#/Vol] 0.2 E9/L Normal 0.0-0.5 [facility] Comment on above: Performed By: #### 1 2540830, 4875178, 4279628 ####[address] [address] Eosinophils/100 WBC (Bld) 3.9 % Normal 0.0-8.0 [facility] Comment on above: Performed By: #### 1 7759884, 7859796, 0753326 ####[address] [address] Erythrocyte distribution width (RBC) [Ratio] 14.0 % Normal 10.9-14.2 [facility] Comment on above: Performed By: #### 1 9409757, 1528310, 1718770 ####[address] [address] Hematocrit (Bld) [Volume fraction] 39.1 % Normal 37.7-49.0 [facility] Comment on above: Performed By: #### 1 1428047, 0559338, 3304147 ####[address] [address] Hemoglobin (Bld) [Mass/Vol] 13.0 g/dL Low 13.5-17.5 [facility] Comment on above: Performed By: #### 1 2275165, 0721723, 6890740 ####[address] [address] Lymphocytes (Bld) [#/Vol] 1.4 E9/L Normal 1.0-4.0 [facility] Comment on above: Performed By: #### 1 7658967, 6387690, 3619329 ####[address] [address] Lymphocytes/100 WBC (Bld) 31.0 % Normal 14.0-50.0 [facility] Comment on above: Performed By: #### 1 4369378, 7398205, 6440865 ####[address] [address] MCH (RBC) [Entitic mass] 30.3 pg Normal 27.0-34.0 [facility] Comment on above: Performed By: #### 1 9941936, 1914563, 6223195 ####[address] [address] MCHC (RBC) [Mass/Vol] 33.3 g/dL Normal 31.4-36.0 [facility] Comment on above: Performed By: #### 1 3230955, 2743245, 3180307 ####[address] [address] MCV (RBC) [Entitic vol] 91.2 fL Normal 80.0-100.0 [facility] Comment on above: Performed By: #### 1 4748515, 5733794, 8013874 ####[place] [address] Monocytes (Bld) [#/Vol] 0.4 E9/L Normal 0.2-1.0 [facility] Comment on above: Performed By: #### 1 4532643, 3724514, 4489603 ####[address] [address] Neutrophils (Bld) [#/Vol] 2.5 E9/L Normal 2.0-7.5 [facility] Comment on above: Performed By: #### 1 2845892, 8271059, 0349944 ####[address] [address] Neutrophils/100 WBC (Bld) 55.3 % Normal 36.0-75.0 [facility] Comment on above: Performed By: #### 1 9754452, 5106121, 4056095 ####[address] [address] Platelet 157.0 E9/L Normal 150.0-500.0 [facility] Comment on above: Performed By: #### 1 3092577, 7796195, 1123906 ####[address] [place] [address] Platelet mean volume (Bld) [Entitic vol] 9.7 fL Normal 6.4-10.8 [facility] Comment on above: Performed By: #### 1 9119589, 5721571, 8634356 ####[facility] [address] [place] [address] RBC (Bld) [#/Vol] 4.3 E12/L Normal 4.3-5.9 [facility] Comment on above: Performed By: #### 1 8925067, 8332556, 5118585 ####[facility] [address] [place] [address] WBC corrected for nucl RBC Auto (Bld) [#/Vol] 4.6 E9/L Normal 4.0-11.0 [facility] Comment on above: Performed By: #### 1 0639458, 1009288, 4768941 ####[facility] [address] [place] [address] CHEMISTRYOrdered By: SYSTEM SYSTEM on 03-06-2024 Anion [...] for Treatmenton 02-13 Consent for Treatment [id number] B4#1.00TIFF Normal [facility] HEMATOLOGYOrdered By: SYSTEM SYSTEM on 03-06-2024 Basophils/100 [...] 03-06-2024 eGFR 75 mL/min/1.73 m2 Normal >=59 [facility] Comment on above: Order Comment: Order added by Discern Expert. Performed By: #### 1 7589317, 3679664, 8704745 ####[facility] [address] [place] [address] Consultation Noteon 03-01-20 Consultation Note [id number] 5E#1.00TIFF Normal [facility] Lab Reportson 02-27-2024 Lab Reports [id number] E7#1.00TIFF Normal [facility] Family Medicine Office/Clini c Noteon 02-07-2024 Family Medicine Office/Clinic Note HPI Staff Dariel is an 83 year old male presenting for 2 month follow up DM Needs refills of levothyroxine and glimiperide to [facility] Do you have any of the following symptoms? Foot Exam: none Eye Exam: due Last A1C: Hgb A1C %: 5.6 % (12/01/23 14:31:00) Statin: pravastatin 40mg questions/concerns: saw kidney specialist (Rashad) about 3 weeks ago ( no report in file) was told to stop the omeprazole and meloxicam and cut salt tablets from tid to bid. Also says [facility] sent him a letter and [...] his left side. 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 His omeprazole and meloxicam were [...] cardiovascular disease) (I25.10: Atherosclerotic heart disease of [place] coronary artery without angina pectoris) He has [...] with voice recognition artificial intelligence software, specifically FileThis, JournallyMe and or Muxlim. Substitutions may have occurred due to the inherent limitations of voice recognition and artificial intelligence software. ATTESTATION: Documentation services were performed after patient or guardian consented to allow [email or web address] to record this visit. MELISSA interactive media specialist and provider reviewed before signing. MELISSA: [...] in life (more content not included)... Normal [facility] Comment on above: Result [...] Appointments Tuesday 9:00 AM EDT With: Where: [facility] Invalid Interpretation Code [address] [place] [address]- \.br\ 2023 9:00 AM EDT \.br\ With: Kylah Garcia MD\.br\ Where: [facility] Family Medicine [place] [facility] Physician Referralon 024 Physician Referral [id number] 6#1.00TIFF Normal [facility] Lab Reportson 01-05-2024 Lab Reports [id number] C1#1.00TIFF Normal [facility] Transfer Inon 12-08-2023 Transfer In [id number] F9#1.00TIFF Normal [facility] Auth for Release of Medical Recordson 12-06-2023 Auth for Release of Medical Records [id number] E#1.00TIFF Normal [facility] Family Medicine Office/Clini c Noteon 12-02-2023 Family [...] visit: few weeks ago Last provider: Jada eRne ( she's leaving) Any recent labs: none [...] 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 He and his family relocated from [place] to [place] 7 months ago, but they originally grew up in [place]. Review of Systems PHQ Score Initial Depression [...] cardiovascular disease) (I25.10: Atherosclerotic heart disease of [place] coronary artery without angina pectoris) He will [...] with voice recognition artificial intelligence software, specifically FileThis, JournallyMe and or Muxlim. Substitutions may have occurred due to the inherent limitations of voice recognition and artificial intelligence software. Documentation services were performed after patient or guardian consented to allow [email or web address] to record this visit. MELISSA interactive media specialist and provider reviewed before signing. MELISSA: [...] Oral, Horace (more content not included)... Normal [facility] Comment on above: Result Comment: Elec tronically Signed By: Kylah Garcia MD\.br\Date and Time Signed: 12/02/23 08:22 EST\.br\Electronically Co-Signed By: Allie Conway\.br\Date and Time Co-Signed: 12/01/23 17:49 EST Lab Reportson 12-02-2023 Lab Reports [id number] 1#1.00TIFF [facility] Ambulatory Visit Summaryon 0 12-01-2023 Ambulatory Visit Summary DARIEL ZBAALA :1940 Visit Date:12/01/2023 Ambulatory Visit Instructions Your [...] for choosing us for your care. Normal [facility] CBC w/ Auto Diffon 4 NRBC Man 0 Normal 0-0 [facility] Comment on above: Performed By: #### 2 443530, 2441015, 25374896, 2205299, 230091033 #### [facility] [address] [place] [address] Basophil Absolute 0.0 E9/L Normal 0.0-0.2 [facility] Comment on above: Performed By: #### 2 549619, 8646137, 89635842, 8941233, 966794400 #### [facility] [address] [place] [address] Basophils/100 WBC (Bld) 0.4 % Normal 0.0-2.0 [facility] Comment on above: Performed By: #### 2 302907, 8638743, 81777777, 4695477, 540472723 #### [facility] [address] [place] [address] Eos Absolute 0.2 E9/L Normal 0.0-0.5 [facility] Comment on above: Performed By: #### 2 516004, 5187974, 19327556, 9423891, 888769104 #### [facility] [address] [place] [address] Eosinophils/100 WBC (Bld) 2.9 % Normal 0.0-8.0 [facility] Comment on above: Performed By: #### 2 248126, 6993670, 68173383, 4270529, 341915299 #### [facility] [address] [place] [address] Erythrocyte distribution width (RBC) [Ratio] 14.0 % Normal 10.9-14.2 [facility] Comment on above: Performed By: #### 2 020582, 8846552, 85116197, 6755170, 067247108 #### [facility] [address] [place] [address] Hematocrit (Bld) [Volume fraction] 37.0 % Low 37.7-49.0 [facility] Comment on above: Performed By: #### 2 085079, 2142948, 71602706, 1331383, 423408547 #### [facility] [address] [place] [address] Hemoglobin (Bld) [Mass/Vol] 12.1 g/dL Low 13.5-17.5 [facility] Comment on above: Performed By: #### 2 952614, 0904675, 94743978, 9069220, 556279383 #### [facility] [address] [place] [address] Lymph Absolute 1.8 E9/L Normal 1.0-4.0 [facility] Comment on above: Performed By: #### 2 755638, 9238321, 91077685, 0926585, 667371279 #### [facility] [address] [place] [address] Lymphocytes/100 WBC (Bld) 29.3 % Normal 14.0-50.0 [facility] Comment on above: Performed By: #### 2 409229, 6415012, 23247766, 8328872, 054823215 #### [facility] [address] [place] [address] MCH (RBC) [Entitic mass] 30.8 pg Normal 27.0-34.0 [facility] Comment on above: Performed By: #### 2 361111, 0945963, 18190862, 3139838, 118946597 #### [facility] [address] [place] [address] MCHC (RBC) [Mass/Vol] 32.8 g/dL Normal 31.4-36.0 [facility] Comment on above: Performed By: #### 2 283105, 2021125, 62554216, 4007931, 247433494 #### [facility] [address] [place] [address] MCV (RBC) [Entitic vol] 93.8 fL Normal 80.0-100.0 [facility] Comment on above: Performed By: #### 2 535129, 1514387, 06069643, 6025870, 447118344 #### [facility] [address] [place] [address] [place] Absolute 0.5 E9/L Normal 0.2-1.0 [facility] Comment on above: Performed By: #### 2 683076, 2147872, 13712085, 0492375, 149126428 #### [facility] [address] [place] [address] Monocytes/100 WBC (Bld) 7.9 % Normal 4.0-14.0 [facility] Comment on above: Performed By: #### 2 200756, 7514624, 08815083, 8984123, 730011330 #### [facility] [address] [place] [address] Neutro Absolute 3.6 E9/L Normal 2.0-7.5 [facility] Comment on above: Performed By: #### 2 176764, 9563038, 37871099, 9536192, 872920624 #### [facility] [address] [place] [address] Neutro Auto 59.5 % Normal 36.0-75.0 [facility] Comment on above: Performed By: #### 2 145736, 2275378, 63673477, 9991633, 881647273 #### [facility] [address] [place] [address] Platelet 198.0 E9/L Normal 150.0-500.0 [facility] Comment on above: Performed By: #### 2 794648, 0144148, 96744556, 2570189, 493370736 #### [facility] [address] [place] [address] Platelet mean volume (Bld) [Entitic vol] 9.5 fL Normal 6.4-10.8 [facility] Comment on above: Performed By: #### 2 668882, 3348003, 87919553, 7913902, 801208981 #### [facility] [address] [place] [address] RBC 3.9 E12/L Low 4.3-5.9 [facility] Comment on above: Performed By: #### 2 582560, 2109684, 63723158, 4296120, 768512447 #### [facility] [address] [place] [address] WBC 6.0 E9/L Normal 4.0-11.0 [facility] Comment on above: Performed By: #### 2 565679, 4432973, 04175396, 2247840, 456292270 #### [facility] [address] [place] [address] CHEMISTRYOrdered By: Kate Sotomayor on 12-01-2023 U [...] - 20 Remisol Chem CHEMISTRYOrdered By: Zena Rashel pickett on 12-01-2023 HbA1c (Bld) [Mass fraction] 5.6 % Normal <=5.9% [facility] ChemAutoSS CMPon 12-01-2023 Albumin [Mass/Vol] 3.9 g/dL Normal 3.3-5.0 [facility] Comment on above: Performed By: #### 2 248100, 4286857, 41459909, 1512349, 474002005 #### [facility] [address] [place] [address] Albumin/Globulin [Mass ratio] 1.6 {ratio} Normal 1.1-2.2 [facility] Comment on above: Performed By: #### 2 933373, 4420190, 02182377, 8520950, 598108494 #### [facility] [address] [place] [address] Alk Phos 75 Int._Unit/L Normal 21-98 [facility] Comment on above: Performed By: #### 2 108806, 5816292, 54419401, 4674829, 780874388 #### [facility] [address] [place] [address] ALT 12 Int._Unit/L Normal 6-46 [facility] Comment on above: Performed By: #### 2 574698, 8669050, 20821662, 6652080, 781694271 #### [facility] [address] [place] [address] Anion gap [Moles/Vol] 9 mmol/L Normal 6-16 [facility] Comment on above: Performed By: #### 2 089054, 5640316, 34332294, 7843470, 292367562 #### [facility] [address] [place] [address] AST 20 Int._Unit/L Normal 5-43 [facility] Comment on above: Performed By: #### 2 225040, 7923850, 04792748, 7195691, 938343158 #### [facility] [address] [place] [address] Bili Total 0.9 mg/dL Normal 0.0-1.1 [facility] Comment on above: Performed By: #### 2 868559, 3713743, 84732148, 7691379, 175353045 #### [facility] [address] [place] [address] BUN/Creat Ratio 10 No Units Normal 10-20 [facility] Comment on above: Performed By: #### 2 722647, 0026946, 71537498, 4662665, 790347674 #### [facility] [address] [place] [address] Calcium [Mass/Vol] 8.7 mg/dL Low 8.9-11.1 [facility] Comment on above: Performed By: #### 2 163822, 2850694, 54557758, 0177404, 885013648 #### [facility] [address] [place] [address] Chloride [Moles/Vol] 104 mmol/L Normal 101-111 [facility] Comment on above: Performed By: #### 2 507481, 5264098, 88473461, 2798760, 529060765 #### [facility] [address] [place] [address] CO2 [Moles/Vol] 30 mmol/L Normal 21-31 [facility] Comment on above: Performed By: #### 2 045628, 8780441, 17706570, 6877534, 680449774 #### [facility] [address] [place] [address] Creatinine [Mass/Vol] 1.1 mg/dL Normal 0.5-1.3 [facility] Comment on above: Performed By: #### 2 560902, 6166829, 33645555, 3941246, 074292440 #### [facility] [address] [place] [address] Globulin (S) [Mass/Vol] 2.5 g/dL Normal 1.4-4.0 [facility] Comment on above: Performed By: #### 2 465490, 2966172, 16427908, 1868993, 057786545 #### [facility] [address] [place] [address] Glucose [Mass/Vol] 72 mg/dL Normal 55-199 [facility] Comment on above: Performed By: #### 2 691513, 1869530, 91045044, 9971970, 747428340 #### [facility] [address] [place] [address] Potassium [Moles/Vol] 4.2 mmol/L Normal 3.5-5.3 [facility] Comment on above: Performed By: #### 2 405958, 4015803, 48340242, 5823709, 647487327 #### [facility] [address] [place] [address] Protein [Mass/Vol] 6.4 g/dL Normal 6.0-7.8 [facility] Comment on above: Performed By: #### 2 602780, 1908297, 08997248, 7928782, 386125963 #### [facility] [address] [place] [address] Sodium [Moles/Vol] 139 mmol/L Normal 135-145 [facility] Comment on above: Performed By: #### 2 123674, 7436041, 62841340, 1486318, 571225275 #### [facility] [address] [place] [address] Urea nitrogen [Mass/Vol] 11 mg/dL Normal 5-21 [facility] Comment on above: Performed By: #### 2 970963, 4704644, 76614599, 9168674, 347676483 #### [facility] [address] [place] [address] HEMATOLOGYOrdered By: SYSTEM SYSTEM on 12-01-2023 Basophil [...] Normal 80.0 - 100.0 fL Remisol Heme [place] Absolute 0.5 E9/L Normal 0.2 - 1.0 [...] E9/L Remisol H [place] HEMATOLOGYOrdered By: Starr Shwetha on 12-01-2023 NRBC Man 0 1 Normal 0 - 0 Remisol Heme [id number] 12-01-2023 HbA1c (Bld) [Mass fraction] 5.6 % Normal <=5.9 [facility] Comment on above: Performed By: #### 2 503976, 0792648, 08011528, 0407791, 926698790 ####[facility] [address] [place] [address] Lipid Panelon 12-01-2023 Cholesterol [Mass/Vol] 156 mg/dL Normal 120-200 [facility] Comment on above: Performed By: #### 2 514463, 3358403, 24362288, 6917073, 206279918 #### [facility] [address] [place] [address] Cholesterol in HDL [Mass/Vol] 51 mg/dL Invalid Interpretation Code [facility] Comment on above: Result Comment: '>= 60 LOW RISK' '<= 40 HIGH RISK' Performed By: #### 2 895921, 8252061, 20351522, 7587031, 291098541 #### [facility] [address] [place] [address] Cholesterol in LDL [Mass/Vol] 89 mg/dL Normal <=129 [facility] Comment on above: Performed By: #### 2 886408, 1557964, 31581335, 7498696, 973120067 #### [facility] [address] [place] [address] Cholesterol in VLDL [Mass/Vol] 18 mg/dL Normal 7-40 [facility] Comment on above: Performed By: #### 2 [id number], [id number], [id number], [id number], [id number] #### [facility] [address] [place] [address] Triglyceride [Mass/Vol] 92 mg/dL Normal <=149 [facility] Comment on above: Performed By: #### 2 [id number], [id number], [id number], [id number], [id number] #### [facility] [address] [place] [address] U Microalbon 12-01-2023 U Microalb <2.0 Normal 0.0-19.0 [facility] Comment on above: Performed By: #### 1 [id number] ####[facility] [address] [place] [address] U Protein/Creat Ratioon 11-14 U Creatinine 62.5 mg/dL Invalid Interpretation Code [facility] Comment on above: Performed By: #### 1 [id number], [id number] ####[facility] [address] [place] [address] U Prot/Creat Ratio NOT CALCULATED Invalid Interpretation Code .00-200.00 [facility] Comment on above: Performed By: #### 1 [id number], [id number] ####[facility] [address] [place] [address] Ur Total Protein <6.0 Invalid Interpretation Code [facility] Comment on above: Performed By: #### 1 [id number], [id number] ####[facility] [address] [place] [address] eGFRon 12-01-2023 eGFR 67 mL/min/1.73 m2 Normal >=59 [facility] Comment on above: Order Comment: Order added by Discern Expert. Performed By: #### 2 [id number], [id number], [id number], [id number], [id number] #### [facility] [address] [place] [address] Basic Metabolic Panelon 10-15 Anion gap [Moles/Vol] 8.1 mmol/L Normal 6.0-15.0 [facility] Comment on above: Order Comment: Reaso n for Exam Hyponatremia Performed By: #### C BC, BMP #### [facility] [address] Calcium [Mass/Vol] 9.3 mg/dL Normal 8.6-10.3 [facility] Comment on above: Order Comment: Reaso n for Exam Hyponatremia Result Comment: PERF ORMED BY: [place] [address] PATHOLOGIST HOSPICE SPIRITUAL CARE COORDINATOR DANNY NEAL M.D. Performed By: #### C BC, BMP #### [address] Chloride [Moles/Vol] 102 mmol/L Normal 98-107 [facility] [employer] Other Comment on above: Order Comment: Reaso n for Exam Hyponatremia Performed By: #### C BC, BMP #### [address] CO2 [Moles/Vol] 32.4 mmol/L High 21.0-31.0 [facility] Comment on above: Order Comment: Reaso n for Exam Hyponatremia Performed By: #### C BC, BMP #### [place] [address] [place] Creatinine [Mass/Vol] 1.07 mg/dL Normal 0.70-1.30 [facility] Comment on above: Order Comment: Reaso n for Exam Hyponatremia Performed By: #### C BC, BMP #### [place] [address] [place] GFR/1.73 sq M.predicted MDRD (S/P/Bld) [Vol rate/Area] mL/min/{1.73_m2} Normal [employer] Other Comment on above: Order Comment: Reaso n for Exam Hyponatremia Performed By: #### C BC, BMP #### [facility] [address] [place] [address] [place] Glucose [Mass/Vol] 93 mg/dL Normal 70-100 [employer] Other Comment on above: Order Comment: Reaso n for Exam Hyponatremia Result Comment: [place] Glucose Reference Range is dependent on time and content of last meal. Glucose of more than 200 mg/dL in a nonstressed, ambulatory subject supports the diagnosis of Diabetes Mellitus. ADA recommended reference range Performed By: #### C BC, BMP #### [facility] [address] [id number] [facility] Potassium [Moles/Vol] 4.5 mmol/L Normal 3.5-5.1 [facility] Comment on above: Order Comment: Reaso n for Exam Hyponatremia Performed By: #### C BC, BMP #### [facility] [address] [place] [address] [place] Sodium [Moles/Vol] 138 mmol/L Normal 136-145 [employer] Other Comment on above: Order Comment: Reaso n for Exam Hyponatremia Performed By: #### C BC, BMP #### [facility] [address] [place] [address] [place] Urea nitrogen [Mass/Vol] 13 mg/dL Normal 7-25 [employer] Other Comment on above: Order Comment: Reaso n for Exam Hyponatremia Performed By: #### C BC, BMP #### [facility] [address] [place] [address] [place] Calcium [Mass/Vol] 9.4309140 mg/dL Normal 8.6-10.3 mg/ dL [employer] Other CO2 [Moles/Vol] 32.38405838 mmol/L High 21.0-31.0 mm ol/L [employer] Other Creatinine [Mass/Vol] 1.17822832 mg/dL Normal 0.70-1.30 mg/dL [employer] Other Potassium [Moles/Vol] 4.42001806 mmol/L Normal 3.5-5.1 mmol/L [employer] Other Complete Blood Count Auto Di ffon 11-02-2023 Basophils (Bld) [#/Vol] 0.1 10*3/uL Normal 0.0-0.2 [facility] Comment on above: Order Comment: Reaso n for Exam Atrial fibrillation Result Comment: PERF ORMED BY: [place] [address] PATHOLOGIST HOSPICE SPIRITUAL CARE COORDINATOR DANNY NEAL M.D. Performed By: #### C BC, BMP #### [address] Basophils/100 WBC (Bld) 1.0 % Normal . [facility] Comment on above: Order Comment: Reaso n for Exam Atrial fibrillation Performed By: #### C BC, BMP #### [address] Eosinophils (Bld) [#/Vol] 0.1 10*3/uL Normal 0.0-0.45 [facility] Comment on above: Order Comment: Reaso n for Exam Atrial fibrillation Performed By: #### C BC, BMP #### [address] Eosinophils/100 WBC (Bld) 2.1 % Normal . [facility] Comment on above: Order Comment: Reaso n for Exam Atrial fibrillation Performed By: #### C BC, BMP #### [address] Erythrocyte distribution width (RBC) [Ratio] 14.0 % Normal 12.0-14.8 [facility] Comment on above: Order Comment: Reaso n for Exam Atrial fibrillation Performed By: #### C BC, BMP #### [address] Hematocrit (Bld) [Volume fraction] 38.8 % Normal 38.8-50.0 [facility] Comment on above: Order Comment: Reaso n for Exam Atrial fibrillation Performed By: #### C BC, BMP #### [address] Hemoglobin (Bld) [Mass/Vol] 13.2 g/dL Normal 13.0-17.0 [facility] Comment on above: Order Comment: Reaso n for Exam Atrial fibrillation Performed By: #### C BC, BMP #### [address] Lymphocytes (Bld) [#/Vol] 1.3 10*3/uL Normal 1.00-4.8 [facility] Comment on above: Order Comment: Reaso n for Exam Atrial fibrillation Performed By: #### C BC, BMP #### [address] Lymphocytes/100 WBC (Bld) 21.8 % Normal . [facility] Comment on above: Order Comment: Reaso n for Exam Atrial fibrillation Performed By: #### C BC, BMP #### [address] MCH (RBC) [Entitic mass] 31.5 pg Normal 27.5-35.2 [facility] Comment on above: Order Comment: Reaso n for Exam Atrial fibrillation Performed By: #### C BC, BMP #### [address] MCV (RBC) [Entitic vol] 92.7 fL Normal 83.5-101 [facility] Comment on above: Order Comment: Reaso n for Exam Atrial fibrillation Performed By: #### C BC, BMP #### [address] Mean Corpuscular HGB Conc 34.0 g/dL Normal 32.5-35.6 [facility] Comment on above: Order Comment: Reaso n for Exam Atrial fibrillation Performed By: #### C BC, BMP #### [place] [address] [place] Monocytes (Bld) [#/Vol] 0.5 10*3/uL Normal 0.0-0.8 [facility] Comment on above: Order Comment: Reaso n for Exam Atrial fibrillation Performed By: #### C BC, BMP #### [place] [address] [place] Monocytes/100 WBC (Bld) 8.5 % Normal . [facility] Comment on above: Order Comment: Reaso n for Exam Atrial fibrillation Performed By: #### C BC, BMP #### [facility] [address] [place] [id number] [place] Neutrophils (Bld) [#/Vol] 4.0 10*3/uL Normal 1.8-7.7 [facility] Comment on above: Order Comment: Reaso n for Exam Atrial fibrillation Performed By: #### C BC, BMP #### [facility] [address] [place] [id number] [place] Neutrophils/100 WBC (Bld) 66.6 % Normal . [facility] Comment on above: Order Comment: Reaso n for Exam Atrial fibrillation Performed By: #### C BC, BMP #### [facility] [address] [place] [address] [place] NRBC% 0.1 /100{WBC} Normal 0-0.5 [facility] Comment on above: Order Comment: Reaso n for Exam Atrial fibrillation Performed By: #### C BC, BMP #### [facility] [address] [place] [address] [place] Platelet mean volume (Bld) [Entitic vol] 9.4 fL Normal 6.6-10.1 [facility] Comment on above: Order Comment: Reaso n for Exam Atrial fibrillation Performed By: #### C BC, BMP #### [facility] [address] [place] [address] [place] Platelets (Bld) [#/Vol] 153 10*3/uL Normal 150-450 [facility] [employer] Other Comment on above: Order Comment: Reaso n for Exam Atrial fibrillation Performed By: #### C BC, BMP #### [facility] [address] [place] [address] [place] RBC (Bld) [#/Vol] 4.19 10*6/uL Normal 3.90-5.60 [employer] Other Comment on above: Order Comment: Reaso n for Exam Atrial fibrillation Performed By: #### C BC, BMP #### [facility] [address] [place] [id number] [place] WBC (Bld) [#/Vol] 6.1 10*3/uL Normal 4.1-10.5 [facility] Comment on above: Order Comment: Reaso n for Exam Atrial fibrillation Performed By: #### C BC, BESS #### [facility] [address] Basophils (Bld) [#/Vol] 0.406467491 10*3/uL Normal 0.0-0.2 10*3/uL [employer] Other Basophils/100 WBC (Bld) 1.000 % . % [employer] Other Eosinophils (Bld) [#/Vol] 0.170019299 10*3/uL Normal 0.0-0.45 10*3/uL [employer] Other Eosinophils/100 WBC (Bld) 2.100 % . % [employer] Other Erythrocyte distribution width (RBC) [Ratio] 14.000 % Normal 12.0-14.8 % [employer] Other Hematocrit (Bld) [Volume fraction] 38.800 % Normal 38.8-50.0 % [employer] Other Hemoglobin (Bld) [Mass/Vol] 13.836636 g/dL Normal 13.0-17.0 g/dL [employer] Other Lymphocytes (Bld) [#/Vol] 1.463571853 10*3/uL Normal 1.00-4.8 10*3/uL [employer] Other Lymphocytes/100 WBC (Bld) 21.800 % . % [employer] Other MCH (RBC) [Entitic mass] 31.5000 pg Normal 27.5-35.2 pg [employer] Other MCV (RBC) [Entitic vol] 92.7000 fL Normal 83.5-101 fL [employer] Other Monocytes (Bld) [#/Vol] 0.710405239 10*3/uL Normal 0.0-0.8 10*3/uL [employer] Other Monocytes/100 WBC (Bld) 8.500 % . % [employer] Other Neutrophils (Bld) [#/Vol] 4.759916550 10*3/uL Normal 1.8-7.7 10*3/uL [employer] Other Neutrophils/100 WBC (Bld) 66.600 % . % [employer] Other Platelet mean volume (Bld) [Entitic vol] 9.4000 fL Normal 6.6-10.1 fL [employer] Other WBC (Bld) [#/Vol] 6.662487628 10*3/uL Normal 4.1-10.5 10*3/uL [employer] Other Complete Blood Count Auto Diff 6.1 10*3/uL Normal 4.1-10.5 10*3/uL [employer] Other Complete Blood Count Auto Diff 34.0 g/dL Normal 32.5-35.6 g/dL [employer] Other Complete Blood Count Auto Diff 0.1 /100{WBC} Normal 0-0.5 /100{WBC} [employer] Other PSA Screen (Yearly Only)on 01-03-2023 PSA Screen (Yearly Only) 1.940 ng/mL Normal 0.000-4.000 [facility] Comment on above: Order Comment: Reaso n for Exam Prostate cancer screening Result Comment: Dominik jacob tumor marker results determined by assays using different manufacturers or methods may not be comparable. Formerly [facility] vascular technologist and method: [employer]mn[employer] DXI, CHEMILUMINESCENT IMMUNOASSAY. PERFORMED BY: [address] [place] [address] PATHOLOGIST HOSPICE SPIRITUAL CARE COORDINATOR DANNY NEAL M.D. Performed By: #### P SAS #### [address] [place] [address] [place] Prothrombin Time INRon 06-16 INR Coag (PPP) [Relative time] 2.4 {INR} Normal [place] [employer] Other Comment on above: Result Comment: INR [...] heart valves: 3 - 4.5 PERFORMED BY: [place] [address] PATHOLOGIST HOSPICE SPIRITUAL CARE COORDINATOR DANNY NEAL M.D. Performed By: #### P T #### [facility] [address] [place], [place] [id number] [facility] PT Coag (PPP) [Time] 27.8 s High 9.0-12.9 [facility] Comment on above: Performed By: #### P T #### [facility] [address] [place] [address] [facility] PT Coag (PPP) [Time] 27.800 s High 9.0-12.9 s [facility] [employer] Other Coding Summaryon 05-12-2020 Coding Summary CODING DATE: 05/12/2020 [facility] STATUS: Home PAYOR: Medicare MC ADMIT [...] Aidee Horan Date Saved: 05/12/2020 02:18 pm [facility] ED Clinical Summaryon 2019 ED Clinical Summary [facility] ? Urgent Care [address] [place] [address] Clinical Summary PERSON INFORMATION Name: DARIEL ZABALA Age: 80 Years Sex: MALE : 1940 MRN: Acct#: Visit Reason: UC - Ear Problem; BILAT EAR PROBLEM Arrival: 05/08/2020 09:32:00 Discharge: 05/08/2020 10:15:00 LOS: 000 00:43 Check In: 05/08/2020 09:32:00 Checkout: 05/08/2020 10:15:00 [facility] [address] PCP: Provider, Unlisted PROVIDER INFORMATION Provider Role [...] Adult Follow-Up: With: Address: When: Andrés Arellano [facility], [address] [place] [address] Business (1) Comments: Please follow-up with your Doctor or Dr. Arellano, Medical Doctor economic specialist, call their offices and make ointment to be seen in 3 days or sooner for continued care, please purchase ioxz-kwz-mbixems Debrox which helps breakdown earwax, take all your medications as previously prescribed, drink plenty of water for hydration, and return back to urgent care center for any worsening symptoms, concerns, or complications. DIAGNOSIS: 1:Impacted cerumen of both ears Patient Understands: Yes - Patient/family/customer care consultant verbalizes understanding of instructions given Comment: Normal [facility] ED Patient Summaryon 020 ED Patient Summary [facility] ? Urgent Care [address] [place], [place] [id number] PATIENT DISCHARGE INSTRUCTIONS Patient Information Name: DARIEL ZABALA Age: 80 Years Date of : 1940 Reason For Visit: UC - Ear Problem; BILAT EAR PROBLEM Arrival Time: 05/08/2020 09:32:00 Primary Care Physician: Provider, Unlisted Attending Physician: Larry Billingsley PA-C Comment: Patient Education With: Address: When: Andrés Arellano [facility], [address] [place] [id number] Business (1) Comments: Please follow-up with your Doctor or Dr. Arellano, Medical Doctor economic specialist, call their offices and make ointment to be seen in 3 days or sooner for continued care, please purchase cjmj-gfr-llhoqtd Debrox which helps breakdown earwax, take all [...] Follow these instructions at home: ? Take ebju-gqs-srhkjbe and prescription medicines only as told by [...] clean them according to instructions from the vascular technologist and your health care provider. Contact a [...] 12/08/2005 Document Revised: 10/12/2018 Document Reviewed: 01/11/2018 [employer] Interactive Patient Education ? 2019 [employer] Medication Information: The exam and treatment you received today in the [facility] Emergency Department were for an urgent problem and are not intended as complete care. It is important for you to follow up with a doctor, nurse practitioner, or physician?s physiotherapy assistant for ongoing care. If your symptoms [...] so we can reach you if necessary. [facility] Emergency Department has provided you with a complete list of medications post discharge. Please inform your process control specialist/provider of your visit and for further instruction [...] both ears (H61.23) UC - Ear Problem ([id number]) If you received any narcotics, sedation, or [...] for Disease Control and Prevention July 2014 [facility] Patient Handouton 05-08-2020 Patient Handout Patient Education [...] Follow these instructions at home: ? Take mbsr-kna-numqxpe and prescription medicines only as told by [...] clean them according to instructions from the vascular technologist and your health care provider. Contact a [...] 12/08/2005 Document Revised: 10/12/2018 Document Reviewed: 01/11/2018 [employer] Interactive Patient Education ? 2019 [employer] Normal [facility] Recordon 05-08- 020 Urgent Care Record [facility] ? Urgent Care [address] [id number] PATIENT DISCHARGE INSTRUCTIONS Patient Information Name: DARIEL ZABALA Age: 80 Years Date of : 1940 Reason For Visit: UC - Ear Problem; BILAT EAR PROBLEM Arrival Time: 05/08/2020 09:32:00 Primary Care Physician: Provider, Unlisted Attending Physician: Larry Billingsley PA-C Comment: Visit Diagnosis: Diagnoses This Visit Impacted cerumen of both ears (H61.23) UC - Ear Problem ([id number]) If you received any narcotics, sedation, or [...] legal documents With: Address: When: Andréslisa Arellano [facility], [facility] [place], [place] [id number] Business (1) Comments: Please follow-up with your Doctor or Dr. Arellano, Medical Doctor economic specialist, call their offices and make ointment to be seen in 3 days or sooner for continued care, please purchase azxn-fqp-uggrkgu Debrox which helps breakdown earwax, take all your medications as previously prescribed, drink plenty of water for hydration, and return back to urgent care center for any worsening symptoms, concerns, or complications. Medication Information: The exam and treatment you received today in the [facility] Urgent Care were for an urgent problem and are not intended as complete care. It is important for you to follow up with a doctor, nurse practitioner, or physician?s physiotherapy assistant for ongoing care. If your symptoms [...] so we can reach you if necessary. [facility] has provided you with a complete list of medications post discharge. Please inform your process control specialist/provider of your visit and for further instruction [...] Follow these instructions at home: ? Take wkgs-vqp-kzyzdis and prescription medicines only as told by [...] clean them according to instructions from the vascular technologist and your health care provider. Contact a [...] 12/08/2005 Document Revised: 10/12/2018 Document Reviewed: 01/11/2018 [employer] Interactive Patient Education ? 2019 [employer] Viruses or Bacteria What?s got you [...] for Disease Control and Prevention July 2014 [facility] Vital Signs Date Time Vital Sign Value Performing Clinician Facility 11-26-2024 10:27-0500 Body mass index (BMI) [Ratio] 24.74 kg/m2 Emilaino Escamilla MD Work Phone: [facility] 11-26-2024 10:27-0500 Body weight 77.11 kg Emiliano Escamilla MD Work Phone: [facility] 11-26-2024 10:27-0500 Diastolic blood pressure 73 mm[Hg] Emiliano Escamilla MD Work Phone: [facility] 11-26-2024 10:27-0500 Heart rate 87 /min Emiliano Escamilla MD Work Phone: [facility] 11-26-2024 10:27-0500 Systolic blood pressure 148 mm[Hg] Emiliano Escamilla MD Work Phone: [facility] 11-19-2024 14:27-0500 Diastolic blood pressure 82 mm[Hg] Axel Hernández [facility] 11-19-2024 14:27-0500 Heart rate 66 /min Axel Edgar [facility] 11-19-2024 14:27-0500 Mean blood pressure 103 mm[Hg] Axel Edgar [facility] 11-19-2024 14:27-0500 Respiratory rate 18 /min Axel Edgar [facility] 11-19-2024 14:27-0500 SaO2% (BldA) [Mass fraction] 95 % Axel Edgar [facility] 11-19-2024 14:27-0500 Systolic blood pressure 144 mm[Hg] Axel Edgar [facility] 11-19-2024 13:23-0500 Blood Pressure Location Axel Edgar [facility] 11-19-2024 13:23-0500 Body temperature 96.8 [degF] Axel Edgar [facility] 11-19-2024 13:23-0500 Diastolic blood pressure 69 mm[Hg] Axel Edgar [facility] 11-19-2024 13:23-0500 Heart rate 63 /min Axel Edgar [facility] 11-19-2024 13:23-0500 Mean blood pressure 92 mm[Hg] Axel Edgar [facility] 11-19-2024 13:23-0500 Respiratory rate 20 /min Axel Edgar [facility] 11-19-2024 13:23-0500 SaO2% (BldA) [Mass fraction] 99 % Axel Edgar [facility] 11-19-2024 13:23-0500 Systolic blood pressure 139 mm[Hg] Axel Edgar [facility] 11-19-2024 13:05-0500 Body temperature 97.34 [degF] Axel Hernández [facility] 11-19-2024 13:05-0500 Diastolic blood pressure 69 mm[Hg] Axel Edgar [facility] 11-19-2024 13:05-0500 Heart rate 65 /min Axel Edgar [facility] 11-19-2024 13:05-0500 Mean blood pressure 87 mm[Hg] Axel Edgar [facility] 11-19-2024 13:05-0500 Respiratory rate 16 /min Axel Edgar [facility] 11-19-2024 13:05-0500 SaO2% (BldA) [Mass fraction] 97 % Axel Edgar [facility] 11-19-2024 13:05-0500 Systolic blood pressure 122 mm[Hg] Axel Edgar [facility] 11-19-2024 12:40-0500 Body temperature 97.7 [degF] Axel Edgar [facility] 11-19-2024 12:35-0500 Respiratory rate 12 /min Axel Edgar [facility] 11-19-2024 12:30-0500 Body temperature 96.8 [degF] Axel Hernández [facility] 11-19-2024 12:30-0500 Respiratory rate 13 /min Axel Edgar [facility] 11-19-2024 12:25-0500 Body temperature 96.8 [degF] Axel Hernández [facility] 11-19-2024 12:25-0500 Respiratory rate 15 /min Axel Hernández [facility] 11-19-2024 12:20-0500 Body temperature 96.8 [degF] Axel Hernández [facility] 11-19-2024 09:55-0500 Mean blood pressure 85 mm[Hg] Axel Hernández [facility] 11-19-2024 09:52-0500 Mean blood pressure 79 mm[Hg] Axel Hernández [facility] 10-30-2024 10:36-0500 Diastolic blood pressure 67 mm[Hg] Axel Hernández [facility] 10-30-2024 10:36-0500 Heart rate 57 /min Axel Edgar [facility] 10-30-2024 10:36-0500 Mean blood pressure 86 mm[Hg] Axel Edgar [facility] 10-30-2024 10:36-0500 Systolic blood pressure 124 mm[Hg] Axel Hernández [facility] 10-30-2024 10:34-0500 Heart rate 56 /min Axel Edgar [facility] 10-30-2024 10:34-0500 SaO2% (BldA) [Mass fraction] 100 % Axel Hernández [facility] 10-30-2024 10:34-0500 Diastolic blood pressure 83 mm[Hg] Axel Hernández [facility] 10-30-2024 10:34-0500 Mean blood pressure 105 mm[Hg] Axel Hernández [facility] 10-30-2024 10:34-0500 Systolic blood pressure 148 mm[Hg] Axel Hernández [facility] 10-03-2024 10:58-0500 Body height 176.5 cm Axel Hernández DO Work Phone: [facility] 10-03-2024 10:58-0500 Body mass index (BMI) [Ratio] 26.64 kg/m2 Axel Hernández DO Work Phone: [facility] 10-03-2024 10:58-0500 Body temperature 98.1 [degF] Axel Hernández DO Work Phone: [facility] 10-03-2024 10:58-0500 Body weight 83.01 kg Axel Hernández DO Work Phone: [facility] 08-28-2024 14:47-0400 Blood Pressure Location Davie Mocorriney [facility] 08-28-2024 14:47-0400 Diastolic blood pressure 75 mm[Hg] Davie Mourany [facility] 08-28-2024 14:47-0400 Heart rate 65 /min Davie Mourany [facility] 08-28-2024 14:47-0400 Respiratory rate 16 /min Davie Tristanurany [facility] 08-28-2024 14:47-0400 Systolic blood pressure 119 mm[Hg] Davie Tristanurany [facility] 06-11-2024 12:48-0400 Diastolic blood pressure 78 mm[Hg] Kashif Kirnus [facility] 06-11-2024 12:48-0400 Heart rate 70 /min Kashif Kirnus [facility] 06-11-2024 12:48-0400 Respiratory rate 18 /min Kashif Kirnus [facility] 06-11-2024 12:48-0400 SaO2% (BldA) [Mass fraction] 97 % Kashif Kirnus [facility] 06-11-2024 12:48-0400 Systolic blood pressure 138 mm[Hg] Kashif Kirnus [facility] 05-30-2024 13:31-0400 Blood Pressure Location Dixon Dubose [facility] 05-30-2024 13:31-0400 Diastolic blood pressure 70 mm[Hg] Dixon Dubose [facility] 05-30-2024 13:31-0400 Heart rate 75 /min Dixon Dubose [facility] 05-30-2024 13:31-0400 Respiratory rate 18 /min Dixon Dubose [facility] 05-30-2024 13:31-0400 SaO2% (BldA) [Mass fraction] 95 % Dixon Dubose [facility] 05-30-2024 13:31-0400 Systolic blood pressure 130 mm[Hg] Dixon Dubose [facility] 04-20-2024 13:17-0400 Diastolic blood pressure 78 mm[Hg] Kashif Kirnus [facility] 04-20-2024 13:17-0400 Heart rate 62 /min Kashif Kirnus [facility] 04-20-2024 13:17-0400 SaO2% (BldA) [Mass fraction] 97 % Kashif Kirnus [facility] 04-20-2024 13:17-0400 Systolic blood pressure 138 mm[Hg] Kashif Kirnus [facility] 03-26-2024 14:30-0400 Diastolic blood pressure 64 mm[Hg] Axel Hernández [facility] 03-26-2024 14:30-0400 Heart rate 50 /min Axel Hernández [facility] 03-26-2024 14:30-0400 Respiratory rate 16 /min Axel Hernández [facility] 03-26-2024 14:30-0400 SaO2% (BldA) [Mass fraction] 98 % Axel Edgar [facility] 03-26-2024 14:30-0400 Systolic blood pressure 128 mm[Hg] Axel Edgar [facility] 03-26-2024 13:31-0400 Heart rate 54 /min Axel Edgar [facility] 03-26-2024 13:31-0400 SaO2% (BldA) [Mass fraction] 97 % Axel Edgar [facility] 03-26-2024 13:31-0400 Respiratory rate 16 /min Axel Edgar [facility] 03-26-2024 13:30-0400 Body temperature 97.34 [degF] Axel Edgar [facility] 03-26-2024 13:29-0400 Blood Pressure Location Axel Edgar [facility] 03-26-2024 13:29-0400 Diastolic blood pressure 70 mm[Hg] Axel Edgar [facility] 03-26-2024 13:29-0400 Mean blood pressure 88 mm[Hg] Axel Hernández [facility] 03-26-2024 13:29-0400 Systolic blood pressure 125 mm[Hg] Axel Edgar [facility] 03-26-2024 13:20-0400 Body temperature 97.52 [degF] Axel Hernández [facility] 03-26-2024 13:20-0400 Diastolic blood pressure 63 mm[Hg] Axel Hernández [facility] 03-26-2024 13:20-0400 Heart rate 54 /min Axel Hernández [facility] 03-26-2024 13:20-0400 Mean blood pressure 77 mm[Hg] Axel Edgar [facility] 03-26-2024 13:20-0400 Respiratory rate 15 /min Axel Edgar [facility] 03-26-2024 13:20-0400 SaO2% (BldA) [Mass fraction] 97 % Axel Hernández [facility] 03-26-2024 13:20-0400 Systolic blood pressure 104 mm[Hg] Axel Hernández [facility] 03-26-2024 13:15-0400 Mean blood pressure 73 mm[Hg] Axel Hernández [facility] 03-26-2024 13:15-0400 Respiratory rate 15 /min Axel Hernández [facility] 03-26-2024 13:10-0400 Mean blood pressure 72 mm[Hg] Axel Edgar [facility] 03-26-2024 13:10-0400 Respiratory rate 11 /min Axel Hernández [facility] 03-26-2024 12:55-0400 Body temperature 97.52 [degF] Axel Hernánedz [facility] 03-26-2024 12:50-0400 Respiratory rate 1 /min Axel Hernández [facility] 03-26-2024 09:36-0400 Blood Pressure Location Axel Hernández [facility] 03-26-2024 09:36-0400 Mean blood pressure 112 mm[Hg] Axel Hernández [facility] 03-26-2024 09:34-0400 Mean blood pressure 97 mm[Hg] Axel Hernández [facility] 03-26-2024 09:34-0400 Body temperature 97.34 [degF] Axel Edgar [facility] 03-26-2024 09:34-0400 Blood Pressure Location Axel Edgar [facility] 03-26-2024 09:34-0400 Heart rate 50 /min Axel Edgar [facility] 03-06-2024 08:11-0400 Blood Pressure Location Axel Edgar [facility] 03-06-2024 08:11-0400 Diastolic blood pressure 74 mm[Hg] Axel Edgar [facility] 03-06-2024 08:11-0400 Heart rate 56 /min Axel Edgar [facility] 03-06-2024 08:11-0400 Mean blood pressure 98 mm[Hg] Axel Edgar [facility] 03-06-2024 08:11-0400 Systolic blood pressure 147 mm[Hg] Axel Edgar [facility] 03-06-2024 08:11-0400 Heart rate 57 /min Axel Edgar [facility] 03-06-2024 08:11-0400 SaO2% (BldA) [Mass fraction] 98 % Axel Edgar [facility] 03-06-2024 08:10-0400 Blood Pressure Location Axel Edgar [facility] 03-06-2024 08:10-0400 Body temperature 98.06 [degF] Axel Hernández [facility] 03-06-2024 08:10-0400 Diastolic blood pressure 73 mm[Hg] Axel Edgar [facility] 03-06-2024 08:10-0400 Mean blood pressure 92 mm[Hg] Axel Hernández [facility] 03-06-2024 08:10-0400 Systolic blood pressure 129 mm[Hg] Axel Hernández [facility] 03-06-2024 08:10-0400 Respiratory rate 18 /min Axel Hernández [facility] 11-18-2023 11:00-0500 Body height 180.34 cm Jadamary Rene Other [facility] Other 11-18-2023 11:00-0500 Body mass index (BMI) [Ratio] 25.38 kg/m2 Jadamary Rene Other [facility] Other 11-18-2023 11:00-0500 Body temperature 97.6 [degF] Jada Rene Other [facility] Other 11-18-2023 11:00-0500 Body weight 82.56 kg Jada Rene Other [facility] Other 11-18-2023 11:00-0500 Diastolic blood pressure 80 mm[Hg] Jada Rene Other [facility] Other 11-18-2023 11:00-0500 Respiratory rate 18 /min Jada Rene Other [facility] Other 11-18-2023 11:00-0500 SaO2% (BldA) [Mass fraction] 99 % Jadamary Rene Other [facility] Other 11-18-2023 11:00-0500 Systolic blood pressure 132 mm[Hg] Jada Rene Other [facility] Other 11-02-2023 13:00-0500 Body height 180.34 cm Jada Rene Other [facility] Other 11-02-2023 13:00-0500 Body mass index (BMI) [Ratio] 24.4 kg/m2 Jada Rene Other [facility] Other 11-02-2023 13:00-0500 Body weight 79.38 kg Jada Rene Other [facility] Other 11-02-2023 13:00-0500 Diastolic blood pressure 82 mm[Hg] Jada Rene Other [facility] Other 11-02-2023 13:00-0500 Respiratory rate 18 /min Jadamary Rene Other [facility] Other 11-02-2023 13:00-0500 SaO2% (BldA) [Mass fraction] 97 % Jada Rene Other [facility] Other 11-02-2023 13:00-0500 Systolic blood pressure 138 mm[Hg] Jada Rene Other [facility] Other 09-21-2023 10:00-0500 Body height 180.34 cm Jada Rene Other [facility] Other 09-21-2023 10:00-0500 Body mass index (BMI) [Ratio] 25.81 kg/m2 Jada Rene Other [facility] Other 09-21-2023 10:00-0500 Body weight 83.96 kg Jada Rene Other [facility] Other 09-21-2023 10:00-0500 Diastolic blood pressure 70 mm[Hg] Jada Rene Other [facility] Other 09-21-2023 10:00-0500 Respiratory rate 18 /min Jada Rene Other [facility] Other 09-21-2023 10:00-0500 SaO2% (BldA) [Mass fraction] 98 % Jada Rene Other [facility] Other 09-21-2023 10:00-0500 Systolic blood pressure 140 mm[Hg] Jada Rene Other [facility] Other 06-16-2023 11:00-0400 Body height 180.34 cm Jada Rene Other [facility] Other 06-16-2023 11:00-0400 Body mass index (BMI) [Ratio] 23.79 kg/m2 Jada Rene Other [facility] Other 06-16-2023 11:00-0400 Body weight 77.38 kg Jadaendy Rene Other [facility] Other 06-16-2023 11:00-0400 Diastolic blood pressure 64 mm[Hg] Jada Rene Other [facility] Other 06-16-2023 11:00-0400 Respiratory rate 18 /min Jada Rene Other [facility] Other 06-16-2023 11:00-0400 SaO2% (BldA) [Mass fraction] 98 % Jada Rene Other [facility] Other 06-16-2023 11:00-0400 Systolic blood pressure 118 mm[Hg] Jada Rene Other [facility] Other Encounters Encounter Date Encounter Type Care Provider Facility Start: 05-02-2025 ambulatory Kylah Garcia Facility :[facility] [place] Start: 11-28-2024 End: 11-28-2024 Bamboo flowsheet Jelani Chow GAGGERMAN Work Phone: [facility] Start: 11-28-2024 End: 11-28-2024 Bamboo flowsheet Jelani Chow GAGGERMAN Work Phone: [facility] Start: 11-28-2024 End: 11-28-2024 Postop follow up visit related to original px Jelani Chow GAGGERMAN Work Phone: [facility] Comment on above: Status post carpal t unnel release (Primary Dx) Start: 11-28-2024 End: 11-28-2024 ambulatory JELANI CHOW Not Available Start: 11-26-2024 End: 11-26-2024 Bamboo flowsheet Emiliano Escamilla MD Work Phone: [facility]RE [facility] Start: 11-26-2024 End: 11-26-2024 Bamboo flowsheet Emiliano Escamilla MD Work Phone: [facility] Start: 11-26-2024 End: 11-26-2024 Patient encounter procedure Emiliano Escamilla MD Work Phone: [facility] Comment on above: Foreign body of righ t ear, initial encounter (Primary Dx) Start: 11-26-2024 End: 11-26-2024 ambulatory EMILIANO ESCAMILLA Not Available Start: 11-19-2024 End: 11-19-2024 Clinisync Result Encounter Axel Hernández DO Work Phone: [facility] Unsolicited Start: 11-19-2024 End: 11-19-2024 Clinisync Result Encounter Axel Hernández DO Work Phone: [facility] Unsolicited Start: 11-19-2024 End: 11-19-2024 Admission to same day surgery center Axel Hernández [facility] Start: 11-19-2024 End: 11-19-2024 ambulatory Axel Hernández Facility:[facility] Start: 11-13-2024 ambulatory Kylah Garcia Facility :[facility] Jackie Start: 11-12-2024 End: 11-12-2024 Lab Drop off Kylah Garcia [facility] Start: 11-12-2024 End: 11-12-2024 ambulatory Kylah Garcia Facility:[facility] Start: 11-01-2024 End: 11-01-2024 ambulatory Kylah Garcia Facility:[facility] Donner edgar Start: 10-30-2024 End: 10-30-2024 ambulatory Axel Hernández Facility:[facility] Start: 10-30-2024 End: 10-30-2024 Patient encounter procedure Axel Hernández [facility] Start: 10-03-2024 End: 10-03-2024 Bamboo flowsheet [...] encounter status Axel Hernández DO Work Phone: [facility] Start: 10-03-2024 End: 10-03-2024 ambulatory AXEL HERNÁNDEZ Not Available Start: 09-28-2024 End: 09-28-2024 Bamboo flowsheet Shala Farrell MD Work Phone: [facility] Start: 09-28-2024 End: 09-28-2024 Bamboo flowsheet Shala Farrell MD Work Phone: [facility] Start: 09-28-2024 End: 09-28-2024 Patient encounter procedure Shala Farrell MD Work Phone: [facility] B Comment on above: Pain in both upper e xtremities (Primary Dx); Carpal tunnel syndrome, bilateral Start: 09-28-2024 End: 09-28-2024 ambulatory SHALA FARRELL Not Available Start: 09-10-2024 End: 09-10-2024 ambulatory Kylah Garcia Facility:[facility] Start: 08-28-2024 End: 08-28-2024 ambulatory Davie Vargas Facility:[facility] Start: 08-28-2024 End: 08-28-2024 Patient encounter procedure Davie Vargas [facility] [place] Start: 08-20-2024 End: 08-20-2024 Telephone encounter Shala Farrell MD Work Phone: [facility] 111 Start: 08-13-2024 End: 08-13-2024 ambulatory Nathaniel Bonilla MD Facility:[facility] Start: 08-07-2024 End: 08-07-2024 ambulatory Kylah Garcia Facility:[facility] Start: 07-31-2024 End: 07-31-2024 ambulatory Kylah Garcia Facility:[facility] [place] Start: 07-24-2024 End: 07-24-2024 ambulatory Kylah Garcia Facility:[facility] [place] Start: 07-23-2024 ambulatory Davie Vargas Facilit y:[facility] [place] Start: 07-05-2024 ambulatory Kylah Garcia Facility:[facility] Start: 07-03-2024 End: 07-03-2024 ambulatory Kylah Garcia Facility:[facility] Latasha hernández Start: 06-20-2024 End: 06-20-2024 ambulatory AXEL HERNÁNDEZ Not Available Start: 06-11-2024 End: 06-11-2024 ambulatory XXXX NONE Facility:[facility] Start: 06-11-2024 End: 06-11-2024 Patient encounter procedure Kashif Barnett [facility] Start: 05-30-2024 End: 05-30-2024 ambulatory Dixon Dubose Facility:[facility] Start: 05-30-2024 End: 05-30-2024 Patient encounter procedure Dixon Dubose [facility] Start: 05-21-2024 End: 05-21-2024 ambulatory MD Kashif Barnett Facility:[facility] Start: 05-21-2024 End: 05-21-2024 Patient encounter procedure Kashif Barnett [facility] Start: 05-03-2024 End: 05-03-2024 ambulatory MD Kylah Garcia Facility: [facility] Start: 05-01-2024 End: 05-01-2024 ambulatory MD Kashif Barnett Facility:[facility] Start: 05-01-2024 End: 05-01-2024 Patient encounter procedure Kashif Barnett [facility] Start: 05-01-2024 End: 05-01-2024 Lab Drop off Kylah Garcia [facility] Start: 05-01-2024 End: 05-01-2024 ambulatory MD Kylah Garcia Facility:[facility] Latasha hernández Start: 04-20-2024 End: 04-20-2024 ambulatory MD Kashif Barnett Facility:[facility] Start: 04-20-2024 End: 04-20-2024 Patient encounter procedure Kashif Barnett [facility] Start: 04-04-2024 End: 04-04-2024 ambulatory AXEL HERNÁNDEZ Not Available Start: 03-26-2024 End: 03-26-2024 Admission to same day surgery center Axel Hernández [facility] Start: 03-26-2024 End: 03-26-2024 ambulatory Axel Hernández Facility:[facility] Start: 03-20-2024 End: 03-20-2024 ambulatory MD Kylah Garcia Facility:[facility] Latasha springe Start: 03-08-2024 End: 03-08-2024 ambulatory MD Kylah Garcia Facility: [facility] Latasha springe Start: 03-06-2024 End: 03-06-2024 ambulatory Axel Hernández Facility:[facility] Start: 03-06-2024 End: 03-06-2024 Patient encounter procedure Axel Hernández [facility] Start: 02-15-2024 End: 02-15-2024 ambulatory AXEL HERNÁNDEZ Not Available Start: 02-15-2024 End: 02-15-2024 ambulatory AXEL HERNÁNDEZ Not Available Start: 02-02-2024 End: 02-02-2024 ambulatory MD Kylah Garcia Facility: [facility] springe Start: 12-06-2023 End: 12-06-2023 ambulatory Jada Rene Other [facility] Other Start: 12-06-2023 Telephone encounter Jada ORDOÑEZ [facility] Kevin Start: 12-02-2023 End: 12-02-2023 ambulatory Jada Rene Other [facility] Other Start: 12-02-2023 Telephone encounter Jadaendy Rene [facility] [place] Start: 12-01-2023 End: 12-01-2023 Lab Drop off Kylah Garcia [facility] Start: 12-01-2023 End: 12-01-2023 ambulatory MD Kylah Garcia Facility:[facility] Start: 12-01-2023 ambulatory MD Kylah Garcia Facility :[facility] [place] Start: 11-18-2023 End: 11-18-2023 ambulatory Jada Rene Other [facility] Other Start: 11-18-2023 Office outpatient vi sit 25 minutes Jada Edgard [facility] [place] Start: 11-02-2023 End: 11-02-2023 ambulatory Jadaendy Rene [facility] Other Start: 11-02-2023 Office outpatient vi sit 25 minutes Jadaendy Rene [facility] [place] Start: 11-02-2023 Telephone encounter Jadamary Rene [facility] [place] Start: 10-28-2023 End: 10-28-2023 ambulatory Jadaendy Rene Other [facility] Other Start: 10-28-2023 Telephone encounter Jadamary Rene [facility] [place] Start: 09-30-2023 End: 09-30-2023 Nurse Triage Venessa Riggins RN [employer] Comment on above: Refill Request Start: 09-30-2023 Telephone encounter Jada Edgard [facility] [place] Start: 09-21-2023 End: 09-21-2023 ambulatory Jadaendy Rene Other [facility] Other Start: 09-21-2023 Office outpatient vi sit 25 minutes Jada Rene [facility] [place] Start: 08-29-2023 End: 08-29-2023 ambulatory Jada Rene Other [facility] Other Start: 08-29-2023 Telephone encounter Jada Rene [facility] Kevin Start: 08-26-2023 End: 08-26-2023 ambulatory Jada Rene Other [facility] Other Start: 08-26-2023 Telephone encounter Jada Rene [facility] Kevin Start: 08-08-2023 End: 08-08-2023 ambulatory Jada Rene Other [facility] Other Start: 08-08-2023 Telephone encounter Jada Rene [facility] Kevin Start: 07-27-2023 End: 07-27-2023 ambulatory Jada Rene Other [facility] Other Start: 07-27-2023 Telephone encounter Jada Rene [facility] Kevin Start: 06-16-2023 End: 06-16-2023 ambulatory Jada Rene [facility] Other Start: 06-16-2023 Office outpatient ne w 45 minutes Jada Rene [facility] Kevin Start: 06-16-2023 Telephone encounter Jada [facility] Kevin Procedures Date Procedure Procedure Detail Performing Clinician Start: 11-19-2024 [facility] CAPILLARY GLUCO SE POC Axel Hernández DO Work Phone: Start: 11-19-2024 Decompression of med carlos nerve Axel Hernández Start: 03-26-2024 Decompression of med carlos nerve Axel Hernández Decompression of med carlos nerve Axel Hernández 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 Status post carpal tunnel release Jelani Chow NP Work Phone: Release of trigger finger Mi jacquie Hernández Surgery (qualifier value) fariha Garcia Plan of Treatment Date Care Activity Detail Author Start: 12-26-2024 End: 12-26-2024 Patient encounter procedure 12/26/2024 1:45 PM EST [facility] [address] [place] [address] Jelani Chow, GAGGERMAN [address] [place], [place] [id number] [facility] Start: 11-28-2024 End: 11-28-2024 Patient encounter procedure [facility] Comment on above: Arrived Start: 11-26-2024 End: 11-26-2024 Patient encounter procedure 11/26/2024 10:30 AM EST Office Visit [facility] [place] [address] [place] [address] Emiliano Escamilla MD [address] [facility] [address] [place] [address] Arrived [facility] [place] Comment on above: Arrived Start: 10-03-2024 End: 10-03-2025 ECG 12 lead ECG 12 lead ECG Routine Pre-op testing Expected: 10/03/2024 (Approximate), Expires: 10/03/2025 [facility] Work Phone: Comment on above: Expected: 10/03/2024 (Approximate), Expires: 10/03/2025 Start: 10-03-2024 End: 10-03-2024 Patient encounter procedure 10/03/2024 10:45 AM EST Office Visit [facility] [address] [place] [address] Axel Hernández, [address] [place] [address] Right hand pain (Primary Dx); Arm weakness [facility] Comment on above: Right hand pain (Holly ayaan Dx); Arm weakness Start: 07-15-2024 Influenza vaccination Influenza Vacc ine (#1) [facility] Start: 07-15-2023 Influenza vaccination Influenza Vacc ine (#1) [facility] Start: 11-14-2022 Advance Directive Discussion Advance Directive Discussion [facility] Start: 11-14-2022 Depression Assessment Depression Ass essment [facility] Start: 03-31-2016 Pneumococcal Vaccine : 65+ (2 - PPSV23 or PCV20) Pneumococcal Vaccine: 65+ (2 - PPSV23 or PCV20) [facility] Start: 03-31-2016 Pneumococcal Vaccine : 65+ Years (2 of 2 - PPSV23 or PCV20) Pneumococcal Vaccine: 65+ Years (2 of 2 - PPSV23 or PCV20) [facility] Start: 03-24-2016 Hepatitis B surface antibody level LDL Cholesterol [facility] Start: 09-24-2015 Hemoglobin A1c/Hemoglobin.total in Blood HbA1C [facility] Start: 08-01-2015 3 comp foot exam completed Diabetic Foot Exam [facility] Start: 07-25-2015 Hepatitis B screening Urine Albumin:Creatinine Ratio [facility] Start: 02-01-2015 Urine microalbumin profile DTaP,Tdap,Td Vaccine (1 - Tdap) [facility] Start: 10-24-2013 Shingrix Vaccine (2 of 3) Shingrix Vaccine (2 of 3) [facility] Start: 09-14-2012 Hepatitis C antibody , confirmatory test Dilated Retinal Exam [facility] Start: 2002 RSV Vaccine (1 - 1-d ose 60+ series) RSV Vaccine (1 - 1-dose 60+ series) [facility] Start: 1942 Covid-19 Vaccine (#1) Covid-19 Vacci ne (#1) [facility] Immunizations Immunization Date Immunization Notes Care Provider Fa cility 09-29-2024 influenza virus vaccine, unspecified formulation Axel Hernández DO Work Phone: [facility] 09-21-2023 Prevnar 20 Jada Rene Other [facility] 08-19-2023 Flu Shot - Documentation Purposes Only Jada Rene Other [facility] Other 08-19-2023 influenza virus vaccine, unspecified formulation Kylah Garcia [facility] 08-14-2022 influenza, seasonal, injectable Jada Rene Other [facility] Other 03-31-2015 pneumococcal conjuga te vaccine, 13 valent Jada Rene Other [facility] 08-02-2014 influenza, high dose seasonal, preservative-free Venessa Riggins RN [facility] 08-02-2014 influenza virus vaccine, unspecified formulation Venessa Riggins RN [facility] 08-29-2013 zoster vaccine, live Venessa terrell RN [facility] 08-09-2013 influenza virus vaccine, unspecified formulation Venessa Riggins RN [facility] 07-31-2012 influenza virus vaccine, unspecified formulation Venessa Riggins RN [facility] Work Phone: 03-07-2012 tetanus and diphther ia toxoids, adsorbed, preservative free, for adult use (2 Lf of tetanus toxoid and 2 Lf of diphtheria toxoid) Venessa Riggins RN [facility] Work Phone: 08-07-2011 influenza virus vaccine, unspecified formulation Venessa Riggins RN [facility] Work Phone: NEGATED: Highlighted row has not occurred!08-28-2024 influenza virus vaccine, unspecified formulation Davie Vargas [facility] [place] Payers Date Payer Category Payer Medicare (Managed Care) [employer] [id number] 2023 Unknown [employer] D [employer] [id number] 2023-Present [address] [place] [address] [id number] 2023 Unknown [id number] [id number] 2023 Medicare [id number] [id number] 2023 Self-pay 2023 Medicare [id number] 1942 Unknown [id number] 2.16.840.1.824389.3.579. 2.72 1942 Unknown [id number] 2.16.840.1.201202.3.579. 2.72 1942 Unknown [id number] 2.16.840.1.936872.3.579. 2.72 1942 Unknown [id number] 2.16.840.1.891555.3.579. 2.727 1942 Unknown [id number] 2.16.840.1.499843.3.579. 2.72 1942 Unknown [id number] 2.16.840.1.022745.3.579. 2.727 1942 Unknown [id number] 2.16.840.1.010774.3.579. 2.72 1942 Unknown [id number] 2.16.840.1.071261.3.579. 2.727 1942 Unknown [id number] 2.16.840.1.998053.3.579. 2.72 1942 Unknown [id number] 2.16.840.1.285581.3.579. 2. 1942 Unknown [id number] 2.16.840.1.047415.3.579. 2. 1942 Unknown [id number] 2.16.840.1.898635.3.579. 2. 1942 Unknown [id number] 2.16.840.1.422851.3.579. 2. 1942 Unknown [id number] 2.16.840.1.121690.3.579. 2. 1942 Unknown [id number] 2.16.840.1.975097.3.579. 2.196 1942 Unknown [id number] 2.16.840.1.453923.3.579. 2 1942 Unknown [id number] 2.16.840.1.035194.3.579. 2 1942 Unknown [id number] 2.16.840.1.502715.3.579. 2 1942 Unknown [id number] 2.16.840.1.312538.3.579. 2 1942 Unknown [id number] 2.16.840.1.224725.3.579. 2 1942 Unknown [id number] 2.16.840.1.815241.3.579. 2 1940 Unknown [id number] 2.16.840.1.525222.3.579. 2. 1940 Unknown [id number] 2.16.840.1.933019.3.579. 2 1940 Unknown [id number] 2.16.840.1.014151.3.579. 2 1940 Unknown [id number] 2.16.840.1.929554.3.579. 2.727 1940 Unknown [id number] 2.16.840.1.950891.3.579. 2.72 1940 Unknown [id number] 2.16.840.1.816731.3.579. 2.72 1940 Unknown [id number] 2.16.840.1.768745.3.579. 2. 1940 Unknown [id number] 2.16.840.1.145531.3.579. 2.72 1940 Unknown [id number] 2.16.840.1.925865.3.579. 2. 1940 Unknown [id number] 2.16.840.1.647596.3.579. 2. 1942 Unknown [id number] 2.16.840.1.185237.3.579. 2.1258 1942 Unknown [id number] 2.16.840.1.897038.3.579. 2.1258 1942 Unknown [id number] 2.16.840.1.234908.3.579. 2.1258 1942 Unknown [id number] 2.16.840.1.367266.3.579. 2.1258 1942 Unknown [id number] 2.16.840.1.655358.3.579. 2.1258 1942 Unknown [id number] 2.16.840.1.441331.3.579. 2.1258 1942 Unknown [id number] 2.16.840.1.614592.3.579. 2.1258 1942 Unknown [id number] 2.16.840.1.646416.3.579. 2.1258 1940 Unknown [id number] 2.16.840.1.171476.3.579. 2.125 1940 Unknown [id number] 2.16.840.1.239627.3.579. 2.727 Medicare [id number] 2.16.840.1.439453.19 Unknown [id number] 2.16.840.1.672087.3.579. 2.531 Unknown [id number] 2.16.840.1.836428.3.579. 2.531 Social History Date Type Detail Facility Start: 06-20-2024 End: 11-28-2024 Sex Assigned At [facility] Start: 12-01-2023 End: 02-15-2024 Tobacco smoking status NHIS Never smoked tobacco [facility] Start: 06-28-2022 Alcohol intake Current drinke r of alcohol (finding) [facility] Start: 06-28-2022 End: 11-28-2024 Alcohol intake [facility] Start: 1940 Sex Assigned At Not on file C [facility] Tobacco smoking status Never [facility] Start: 02-15-2024 Tobacco use and exposure Smokeless tobacco non-user [facility] Medical Equipment Procedure Code Equipment Code Equipment Origin al Text Equipment Identifier Dates Test blood sugar(s) 2 times daily. Dx: non. Insulin: No dx 250.00 Start: 08-24-2013 Comment on above: Test blood sugar(s) 2 times daily. Dx: non. Insulin: No dx 250.00 Functional Status Date Assessment Result Facility 10-30-2024 Functional Status No [facility] 08-28-2024 Functional Status N/A [facility] 06-11-2024 Functional Status N/A [facility] 05-30-2024 Functional Status No [facility] 04-20-2024 Functional Status N/A [facility] 03-06-2024 Functional Status No [facility] Clinical Notes 03-10-2010 to 11-28-2024 Jelani Chow NP - 11/28/2024 1:00 PM Soto Escamilla MD - 11/26/2024 10:30 AM EST Note Date & Type Note Facility 11-28-2024 History of Present illness Narrative Images from the original note were not included. HISTORY OF PRESENT ILLNESS: Dariel Zabala is an 84 y.o. @ male. 1ST PO LT CTR 11/19/24 (9 DAYS) @ [facility] ([facility]). PAIN DIFFUSE IN HAND/WRIST. KEEPS COVERED WITH BANDAID. TOOK TYL A COUPLE TIMES. ADMITS SWELLING IN FINGERS. ADMITS NUMBNESS IN THUMB, IF AND MF- DENIES IMPROVEMENT SINCE SX YET. DOES NOT WAKE AT HS. DENIES DRAINAGE. STITCHES INTACT, REMOVED TODAY. INCISION HEALING WELL. REVIEW OF SYSTEMS: General: Denies fever, fatigue or weight loss Lungs: Denies SOB Cardio: Denies chest pain GI: Denies indigestion or abdominal pain Neuro: Denies numbness or tingling, denies new onset paralysis Musculoskeletal: ( see note) PHYSICAL EXAM: Left Hand Exam Left hand exam is normal. Tenderness The patient is experiencing tenderness in the palmar area (EXPECTED POST OPERATIVE SORENESS AT INICISION.). Range of Motion The patient has normal left wrist ROM. Muscle Strength Left wrist normal muscle strength: MOTORS HAND AND WRIST WITHIN LIMITS OF SURGERY. Other Erythema: absent Scars: present (WELL HEALING, SUTURES PRESENT, REMOVED) Sensation: decreased (still has numbness in thumb index and middle finger) Pulse: present Comments: The operative upper extremity was neurovascularly unchanged. Patient was able to motor fingers and thumb to operative upper extremity in all anatomic planes with 5 out of 5 strength. Radial and ulnar pulses were present and equal bilaterally postoperatively. Capillary refill was less than 2 seconds postoperatively to operative upper extremity nailbeds. Compartments were soft to operative upper extremity postoperatively. Procedures IMAGING: ASSESSMENT: ICD-10-CM 1. Status post carpal tunnel release Z98.890 PLAN: 9 days s/p LT carpal tunnel release: Plan: I reviewed Post Op care and instructions with the patient. No forceful gripping for 3 weeks from the date of surgery. Work on rom of fingers. use for light activities such as eating, keyboarding, writing and phone. He would like to follow up in 4 weeks for RCK. I educated patient that it could take up to a year to have improved sensation. Questions answered in laymen terms at the bedside. The diagnosis, home exercise plan and any ongoing restrictions/ recommendations reviewed. If unable to be reached in office, I recommend evaluation at nearest Emergency Room if any symptoms worsened or new symptoms develop for requiring urgent evaluation. Jelani Chow APRN-POLICE SPECIALIST documented in this encounter [facility] 11-26-2024 History of Present illness Narrative Images from the original note were not included. Subjective Patient ID: Dariel Zabala is a 84 y.o. male who presents for Ear Problem (Hearing aid battery in ear.) Pt seen in [facility] ED last Tuesday and DARNELL battery noted in RT EAC No family history on file. Active Ambulatory Problems Diagnosis Date Noted ASCVD (arteriosclerotic cardiovascular disease) ([facility]/HCC) 11/26/2024 Atrial fibrillation (CMS/HCC) 08/22/2014 Back spasm 11/26/2024 Benign hypertension (CMS/HCC) 11/26/2024 Body mass index (BMI) of 25.0-25.9 in adult 11/26/2024 Benign prostatic hyperplasia 11/26/2024 Carotid artery occlusion 11/26/2024 Carpal tunnel syndrome 08/23/2007 Cervical disc disease with myelopathy 2011 Diabetes mellitus (CMS/HCC) 11/26/2024 ED (erectile dysfunction) 11/26/2024 Encounter for surveillance of abnormal nevi 11/26/2024 Erectile dysfunction due to arterial insufficiency 11/26/2024 Fall at home 11/26/2024 Generalized osteoarthritis 09/12/2012 Hard of hearing 11/26/2024 Resolved Ambulatory Problems Diagnosis Date Noted No Resolved Ambulatory Problems No Additional Past Medical History Past Surgical History: Procedure Laterality Date CARPAL TUNNEL RELEASE NECK SURGERY TRIGGER FINGER RELEASE Right 03/26/2024 [facility] ([facility]) No Known Allergies Current Outpatient Medications on File Prior to Visit Medication Sig Dispense Refill atenolol (Tenormin) 25 MG tablet 1 daily dabigatran etexilate (Pradaxa) 150 MG capsule Take 1 capsule twice a day by oral route. diclofenac sodium (Voltaren) 1 % gel APPLY 1/2 inchTO THE AFFECTED AREA(S) BY TOPICAL ROUTE BID finasteride (Proscar) 5 MG tablet 1 daily gabapentin (Neurontin) 300 MG capsule glimepiride (Amaryl) 2 MG tablet 1 daily hydroCHLOROthiazide (HYDRODiuril) 25 MG tablet Take 1 tablet by mouth Daily meloxicam (Mobic) 15 MG tablet Take 1 tablet by mouth Daily methocarbamol (Robaxin) 750 MG tablet TAKE 1 TABLET BY MOUTH 3 TIMES A DAY NEEDED FOR PAIN omeprazole (PriLOSEC) [address] capsule pravastatin (Pravachol) 20 MG tablet pravastatin (Pravachol) 40 MG tablet 1 daily sildenafil (Viagra) 50 MG tablet TAKE 1 TABLET BY MOUTH ONCE DAILY NEEDED FOR INTERCOURSE FOR 14 DAYS sodium chloride 1 g tablet Take 1 g by mouth in the morning and 1 g before bedtime. Synthroid 25 MCG tablet tamsulosin (Flomax) 0.4 MG 24 hr capsule 1 daily warfarin (Coumadin) 5 MG tablet [DISCONTINUED] benzonatate (Tessalon) 200 MG capsule Take 1 capsule 3 times a day by oral route. [DISCONTINUED] cephalexin (Keflex) 500 MG capsule [DISCONTINUED] fluticasone (Flonase) 50 MCG/ACT nasal spray USE 1 SPRAY(S) IN EACH NOSTRIL ONCE DAILY AT BEDTIME [DISCONTINUED] HYDROcodone-acetaminophen ([place]) 5-325 MG tablet [DISCONTINUED] tiZANidine (Zanaflex) 4 MG tablet Take 4 mg by mouth No current facility-administered medications on file prior to visit. Objective Last Recorded Vitals Vitals: 11/26/24 1027 BP: 148/73 Pulse: 87 ENT Physical Exam Ear Ear comments: RT - DARNELL battery door containing the battery in lateral EAC. No EAC trauma or inflammation Patient ID: Dariel Zabala is a 84 y.o. male. Procedures Foreign body removed from the right ear canal under micro with a forecep Assessment/Plan Diagnoses and all orders for this visit: Foreign body of right ear, initial encounter FB removed from EAC without complication. No injury evident from battery in EAC. Pt unable to explain how battery door broke of and ended up in his EAC. indicated pt may have some dementia. Dr Garcia notified. documented in this encounter [facility] 11-19-2024 Note Progress Note-Physic carlos Patient: DARIEL ZABALA Age: 84 years Sex: Male : 1940 Associated Diagnoses: None Author: Chau Lou MD Postoperative Information Postoperative disposition: Postoperative disposition: To PACU. Optimetrix number: Optimetrix number [id number]. Anesthetic utilized: General. Health Status Allergies: Allergic Reactions (Selected) No Known Medication Allergies Physical Examination Vital Signs 11/19/2024 14:27 EST Heart Rate Monitored 66 bpm Respiratory Rate Monitored 18 br/min Systolic Blood Pressure 144 mmHg HI Diastolic Blood Pressure 82 mmHg Mean Arterial Pressure, Cuff 103 mmHg SpO2 95 % 11/19/2024 13:23 EST Temperature Temporal Artery 36 DegC LOW Heart Rate Monitored 63 bpm Respiratory Rate Monitored 20 br/min Systolic Blood Pressure 139 mmHg Diastolic Blood Pressure 69 mmHg Blood Pressure Location Right arm Mean Arterial Pressure, Cuff 92 mmHg SpO2 99 % Pain Assessment: Controlled. General: Awake, Appropriate. Respiratory: Adequate air exchange. Cardiovascular: Stable. Neurological Assessment Anesthetic outcome No anesthetic complications noted. Adequate pain relief. Review / Management Condition: Stable. Plan Transfer/Discharge: Transfer/Discharge Discharge when meets criteria ( To home ). [facility] Comment on above: Result Comment: Elec tronically Signed By: Chau Lou MD\.br\Date and Time Signed: 11/19/24 15:19 EST 11-19-2024 Evaluation + Plan note Extrac bijal from: Title:ANES Post-operative Note---General Author: Chau Lou MD Date:11/19/24 Plan Transfer/Discharge: Transfer/Discharge Discharge when meets criteria ( To home ). Extracted from: Title:ANES Pre-operative Note 2022 Author:Chau Goode Date:11/19/24 Plan [place] [employer] Anesthesiologists (ASA) physical status classification: Class III. Anesthetic Preoperative Plan: Anesthesia General. Future Appointments Appointment Date:12/12/2024 10:15:00 AM Scheduled Provider:Dixon Dubose PA-C [facility] Type:Cardiology Follow Up (FT) Appointment Date:05/02/2025 08:00:00 AM Scheduled Provider: [facility]FM Medicare Wellness Subsequent Future Scheduled Tests Laboratory* Basic Metabolic Panel 11/13/24 [facility] 01-06-2025 NotePatient Education - Text [place] [facility] CARPAL TUNNEL RELEASE INSTRUCTIONS [...] Patient Signature Axel Hernández, DO [facility] [address] [place] [address] Reviewed: 04-22[facility]01-06-2025 NoteProgress Note-Physician Patient: DARIEL ZABALA Age: 84 years Sex: Male : 1940 Associated Diagnoses: None Author: Carmine COHN, Chau Pineda Preoperative Information Anesthesia Preop Info: Time patient last ate or drank 11/19/2024 00:00:00. Anesthesia history: Patient history: BRENT/slow to wake on one of many surgeries. Family history+: None. Informed consent: Signed by patient. Re-evaluation prior to induction: Initial evaluation reviewed: No significant change. Review of Systems Eye Ear/Nose/Mouth/Throat Respiratory: No shortness of breath, No cough. Cardiovascular: Syncope, syncope attributed to low sodium, No chest pain, No palpitations. Gastrointestinal: No heartburn. Musculoskeletal Neurologic Health Status Allergies: Allergic Reactions (Selected) No Known Medication Allergies, Allergies (1) Active Severity Reaction No Known Medication Allergies None Documented Current medications: (Selected) Inpatient Medications Ordered Lactated Ringers IV Alejandra 1000 mL 1,000 mL: 1,000 mL, IV, 80 mL/hr, Routine, Start date 11/19/24 14:15:00 EST, 12.5 hour(s), Total volume (mL): 1,000, 81.3 kg, 2.01, m2 Sodium Chloride 0.9% IV Alejandra 1000 mL 1,000 mL: 1,000 mL, IV, 150 mL/hr, Routine, Start date 11/19/2509:15:00 EST, 6.7 hour(s), Total volume (mL): 1,000, 81.3 kg, 2.01, m2 Zofran 4 mg/2 mL Injection: 4 mg = 2 mL, Injection, IV Push, q4hr PRN Nausea/Vomiting, Routine, Start date 11/19/24 14:15:00 EST, 11/19/24 14:15:00 EST acetaminophen-hydrocodone 325 mg-5 mg oral tablet: 1 tab(s), Tab, Oral, q4hr PRN Pain 4-7 for 5 day(s), Stop date 11/24/24 14:14:00 EST, Routine, Start date 11/19/24 14:15:00 EST morphine 4 mg/mL Inj: 4 mg = 1 mL, Injection, IV Push, q4hr PRN Pain 8-10 for 5 day(s), Stop date 11/24/24 14:14:00 EST, Routine, Start date 11/19/24 14:15:00 EST Prescriptions Prescribed Sodium Chloride 1 g oral tablet: See Instructions, 1 gram orally daily, # 90 tab(s), Refills(s) 0, Pharmacy: [facility]/pharmacy #[id number], 178, cm, 06/11/24 12:53:00 EDT, Height/Length Dosing, 82, kg, 06/11/2412:56:00 EDT, Weight Dosing Sodium Chloride 1000 mg oral tablet, soluble: See Instructions, 30 tab(s), Refill(s) 0, Take one tablet daily, [facility]/pharmacy #[id number], 178.6, cm, 11/01/24 9:21:00 EST, Height/Length Dosing, 81.3, kg, 11/01/24 9:21:00 EST, Weight Dosing Synthroid 25 mcg(0.025 mg) Tab: See Instructions, TAKE 1 TABLET DAILY ON AN EMPTY STOMACH, # 3 tab(s), Refills(s) 0, Pharmacy: [facility]/pharmacy #[id number], 178, cm, 08/07/24 10:59:00 EDT, Height/Length Dosing, 78.2, kg, 08/07/24 10:59:00 EDT, Weight Dosing atenolol 25 mg Tab: See Instructions, take 1/2 tab daily, # 90 tab(s), Refills(s) 1, Pharmacy: [facility], 178, cm, 09/10/24 13:01:00 EDT, Height/Length Dosing, 80.1, kg, 09/10/24 13:01:00 EDT, Weight Dosing finasteride 5 mg Tab: 5 mg = 1 tab(s), Oral, Daily, # 90 tab(s), Refills(s) 1, [id number] 178.6, cm, 11/01/24 9:21:00 EST, Height/Length Dosing, 81.3, kg, 11/01/24 9:21:00 EST, Weight Dosing fluticasone Nasal 0.05 mg/inh [place]: See Instructions, 48 mL, Refill(s) 1, USE 1 SPRAY IN EACH NOSTRIL TWICE A DAY, [id number], 178, cm, 08/28/24 14:50:00 EDT, Height/Length Dosing, 82.2, kg, 08/28/24 14:50:00 EDT, Weight Dosing gabapentin 300 mg Cap: 300 mg = 1 cap(s), Oral, Daily, # 90 cap(s), Refills(s) 1, Pharmacy: [facility], 178, cm, 07/03/24 10:05:00 EDT, Height/Length Dosing, 80.8, kg, 07/03/2410:05:00 EDT, Weight Dosing glimepiride 2 mg Tab: See Instructions, TAKE 1 TABLET DAILY, # 3 tab(s), Refills(s) 0, Pharmacy: [facility], 178, cm, 08/07/24 10:59:00 EDT, Height/Length Dosing, 78.2, kg, 08/07/24 10:59:00 EDT, Weight Dosing omeprazole 40 mg Cap-DR: 40 mg = 1 cap(s), Oral, Daily, # 90 cap(s), Refills(s) 1, Pharmacy: [facility], 178, cm, 08/28/24 14:50:00 EDT, Height/Length Dosing, 82.2, kg, 08/28/24 14:50:00 EDT, Weight Dosing pravastatin 40 mg Tab: 40 mg = 1 tab(s), Oral, Daily, # 90 tab(s), Refills(s) 3, Pharmacy: [facility], 178, cm, 09/10/24 13:01:00 EDT, Height/Length Dosing, 80.1, kg, 09/10/24 13:01:00 EDT, Weight Dosing sildenafil 100 mg Tab: 100 mg = 1 tab(s), Oral, Daily, PRN for erectile dysfunction, 1 hour before sexual activity, # 5 tab(s), Refills(s) 0, Pharmacy: [facility], 178, cm, 07/03/24 10:05:00 EDT, Height/Length Dosing, 80.8, kg, 07/03/24 10:05:00 EDT,... tamsulosin 0.4 mg Cap: 0.4 mg = 1 cap(s), Oral, Daily, # 90 cap(s), Refills(s) 1, Pharmacy: [facility], 178, cm, 09/10/24 13:01:00 EDT, Height/Length Dosing, 80.1, kg, 09/10/2413:01:00 EDT, Weight Dosing Documented Medications Documented CoQ10: See Instructions, PRN Prophylaxis, Refills(s) 0 D3: See Instructions, Oral Daily- patient states he takes 500 once a day, Refills(s) 0 Jantoven 5 mg oral tablet: 5 mg = 1 tab(s), Oral, Daily, Refills(s) 0, Blood Thinner (more content not included)...[facility]Result Comment: Electronically Signed By: Carmine COHN, Chau Pineda\.br\Date and Time Signed: 11/19/24 11:51 [id number] Hospital Discharge instructions Patient Education 11/12/2024 12:08:21 Hernández - Carpal Tunnel Release Instructions (Custom) (CUSTOM) [place], [place] [facility] CARPAL TUNNEL RELEASE INSTRUCTIONS [...] The pins and needles to resolve. Patient SignatureMiclolis Hernández DO [facility] [address] [place] [id number] Reviewed: 04-2211/19/2024 13:10:26 Post Op Patient Instructions - FT (Custom) (CUSTOM) Follow Up Care 10/03/2024 14:28:43 With:GORDO Weller Address: [address] [place], [place] [id number]- Business (1) When:11/28/2024 13:00:00 Comments:Keep scheduled appointment. Call for any problems. [facility] 12-30-2024 NotePatient Education - Text [place] [facility] CARPAL TUNNEL RELEASE INSTRUCTIONS [...] and needles??? to resolve. Patient Signature Axel T. Hernández, DO [facility] [address] [place] [id number] Reviewed: 04-22[facility]12-30-2024 NoteNurse Consultation Note Reason for Visit Pt [...] Daily, 1 refills fluticasone Nasal 0.05 mg/inh [place], See Instructions, Self Directed gabapentin 300 mg [...] 03/31/2015 Recorded influenza virus vaccine, inactivated 08/02/[address] [facility]11-15-2024 History of Present illness Narrative* Shala Farrell MD - 09/28/2024 9:30 AM EST [facility] Patient: Dariel Zabala [address], [address] , Sex: 1940, Male [place], [place] [address] Height: 180 cm Ref Phys: Hernández fax [...] Doub=doublet; Fasc=fasciculation; FFE=full for effort; Fib=fibrillation; Myokym=myokymia; Lynd=myotonic potential; N,0=normal; NR=no response; Polyph=polyphasia; Pos=positive [sharp] [...] available for comparison. Shala Farrell M.D. Diplomate, [place] [employer] Psychiatry and Neurology (neurology, epilepsy, sleep medicine) Diplomate, [place] Board of Clinical Neurophysiology Diplomate, [place] Board of Preventive Medicine (clinical informatics) . documented in this encounterRusk Rehabilitation [id number] Telephone encounter Note* Telephone Encounter - Miguel Moe - 08/20/2024 10:50 AM EDT LVM to RC in regard to BUE referral from Dr. Hernández--Approved to schedule--25.00 co-pay will be applied to toward OOP. [facility] [id number] Miscellaneous Notes* Telephone Encounter - Miguel Moe - 08/20/2024 10:50 AM EDT LVM to RC in regard to BUE referral from Dr. Hernández--Approved to schedule--25.00 co-pay will be applied to toward OOP. documented in this encounterRusk Rehabilitation [id number] NoteEchocardiology Procedure Exam Date/Time Accession # Ordering Dr. Nava Transthoracic 05/01/2024 15:00 EDT [id number] Kashif Barnett MD Complete CPT code [id number] Reason for Exam (Echo Transthoracic Complete) AFIB, Syncope R55;Other (please specify) Report Version: 1 Study ID: [id number] [facility] [address] [place] [address] Adult Echocardiogram Report Name: DARIEL ZABALA Study Date: 05/01/2024, 2: 02 PM Patient Location: 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 Having rheumatoid arthritis, gout, or diabetes. [...] splint on your hand. General instructions Take [id number]-crxqntm and prescription medicines only as told by [...] provider. Document Revised: 03/17/2020 Document Reviewed: 03/17/2020 Elsevier Patient Education 2022 [employer] 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 [facility] Other 11-17-2023 Evaluation note* Encounter Date Diagnosis Assessment Notes Treatment Notes Treatment Clinical Notes Sep, Type 2 diabetes mellitus (ICD-10 - E11.9) [facility] Other 11-17-2023 Miscellaneous Notes* Telephone Encounter - Venessa Riggins RN - 09/30/2023 12:29 PM EST Called patient back and reviewed plan from his call with Nurse Assistant Dean Of Students at 11:36 AM. See my note Patient already called his PCP as advise and waiting call back for scheduling. He was hospital discharged on 08/26 for cognitive problems and low sodium. He finished his pills for low sodium today. NOC closing was given Conferenced him to [facility] for an appt with nephrology as soon [...] have any questions, you can call Nurse boilermaker assembly and erection back. * Telephone Encounter - Venessa Riggins RN - 09/30/2023 11:36 AM EST Patient calling with request for physician referral: Patient referred to nephrology and primary care Department. Patient denies any new or worsening symptoms of which a provider is not aware: Yes. Patient was discharged from [facility] on 08/26 for low sodium and [...] appt center and then call dropped. My [place] and [employer] lost connection. NOC closing was given GO TO THE EMERGENCY ROOM OR CALL 911 IF: * You develop any new symptoms * Your condition worsens * You are concerned or anxious about your condition for any other reason. If you have any questions, you can call Nurse boilermaker assembly and erection back. [facility] note* Encounter Date Diagnosis Assessment Notes Treatment Notes Treatment Clinical Notes Sep, Hyponatremia (ICD-10 - E87.1) Recent sodium 136 at low end of normal, given significance of symptoms and recommendation of hospital for f/u will refer to nephrology patient requesting [facility] Sep, Anticoagulant long-term use (ICD-10 - Z79.01) Follows with INR clinic through [facility]. Sep, Atrial fibrillation (ICD-10 - I48.91) Appears in NSR today, anticoagulated on Warfarin Sep, Hypothyroidism (ICD-10 - E03.9) Recent TFTs in normal range, clinically euthyroid, continue current dose of LT4 Sep, Type 2 diabetes mellitus (ICD-10 - E11.9) Recent a1c in good range at 5.6%, continue current dose of glimepiride. Sep, Immunization due (ICD-10 - Z23) [facility] Other 10-16-2023 Evaluation note* Encounter Date Diagnosis Assessment Notes Treatment Notes Treatment Clinical Notes Aug, Hyponatremia (ICD-10 - E87.1) [facility] Other 08-03-2023 Evaluation note* Encounter Date Diagnosis Assessment Notes Treatment Notes Treatment Clinical Notes Jun, Atrial fibrillation (ICD-10 - I48.91) Rate controlled, mild bradycardia but asymptomatic. Will continue current dose of atenolol. He is anticoagulated on Coumadin with goal INR 2-3, he is due for INR check. Will refer to coumadin clinic through [facility] Jun, Anticoagulant long-term use (ICD-10 - Z79.01) Jun, Hearing loss (ICD-10 - H91.90) Referral to local choke setter 03 Aug, 2023 Dermatitis (ICD-10 - L30.9) Can trial topical steroid PRN, discussed may be secondary to dry skin. Recommend daily use of lotion Jun, Hypothyroidism (ICD-10 - E03.9) Due for TFTs prior to next visit Jun, Type 2 diabetes mellitus (ICD-10 - E11.9) Due for a1c prior to next visit Jun, BPH (benign prostatic hyperplasia) (ICD-10 - N40.0) [facility] Other 08-03-2023 Reason for referral (narrative)* Reason Medication managemen t through [facility] - Coumadin management with INR goal 2-3 Diagnosis 1 Anticoagulant long-t erm use (Z79.01) Referral Organization [facility] Family Rodo Brown Referring Provider First Name Jada Referring Provider Last Name [facility] Referring Provider Specialty [facility] Referred Organization [facility] Referred Address [address] [place], [place],[address] Referred Provider Specialty Milvia felix Referral Priority Routine General Notes Gabrielle Reid 01/2023 01:34:29 PM >this is an order not a referral, clinical informed and will fax order over for standing order INR to [facility] Reason * FU 06/29 CALL he aring loss, issue with hearing aids Diagnosis 1 Hearing loss (H91.90 ) Referral Organization [facility] Family Rodo Brown Referring Provider First Name Jada Referring Provider Last Name Rene Referring Provider Specialty [facility] Referred Organization [facility] Referred Address ,[place], [place],[address] Referred Provider Specialty Audiologists Referral Priority Routine General Notes Gabrielle Reid 01/2023 01:28:34 PM >referral received and faxed [facility] Other 04-27-2010 History of Past illness Narrative* Problem Noted Date Diagnosed Date Resolved Date Myalgia 03/10/2010 03/01/2011 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 and other lower urinary tract symptoms (LUTS) 08/11/2006 01/11/2013 Elevated prostate specific antigen (PSA) 03/07/2012 documented as of this encounter (statuses as of 09/30/2023) [facility] No data available for this section [facility] Future Appointments Appointment Date:03/08/2024 01:00:00 PM Scheduled Provider:Kylah Garcia MD Location:[facility] Appointment Type: Open Appointment Date:03/26/2024 01:45:00 PM Scheduled Provider: Location:[facility] Appointment Type:Surgery FT Appointment Date:05/01/2024 09:00:00 AM Scheduled Provider: Location:[facility] Appointment Type:FM Lab Draw Appointment Date:05/03/2024 08:00:00 AM Scheduled Provider: Location:[facility] Appointment Type: Medicare Wellness Subsequent Appointment Date:05/03/2024 09:00:00 AM Scheduled Provider:Kylah Garcia MD Location:[facility] Appointment Type: Open Future Scheduled Tests Laboratory* PSA Screen, Total 02/02/24 * CBC w/ Auto Diff 02/02/24 * Comprehensive Metabolic Panel 02/02/24 * Lipid Panel 02/02/24 [facility] Future Appointments Appointment Date:05/01/2024 09:00:00 AM Scheduled Provider: Location:[facility] Appointment Type:FM Lab Draw Appointment Date:05/03/2024 08:00:00 AM Scheduled Provider: Location:[facility] Appointment Type: Medicare Wellness Subsequent Appointment Date:05/03/2024 09:00:00 AM Scheduled Provider:Kylah Garcia MD Location:[facility] Appointment Type: Open Future Scheduled Tests Laboratory* PSA Screen, Total 02/02/24 * CBC w/ Auto Diff 02/02/24 * Comprehensive Metabolic Panel 02/02/24 * Lipid Panel 02/02/24 [facility] Future Appointments Appointment Date:05/01/2024 09:00:00 AM Scheduled Provider: Location:[facility] Appointment Type:FM Lab Draw Appointment Date:05/03/2024 08:00:00 AM Scheduled [facility]: [facility] Type: Medicare Wellness Subsequent Appointment Date:05/03/2024 09:00:00 AM Scheduled Provider:Kylah Garcia MD Location:[facility] Appointment Type:FM Open Appointment Date:05/25/2024 01:00:00 PM Scheduled Provider:[facility]ashif Barnett MD [facility] Type:Cardiology Follow Up (FT) Future Scheduled Tests Laboratory* PSA Screen, Total 02/02/24 * CBC w/ Auto Diff 02/02/24 * Comprehensive Metabolic Panel 02/02/24 * Lipid Panel 02/02/24 Radiology* Echo Transthoracic Complete 04/20/24 [facility] Future Appointments Appointment Date:05/03/2024 08:00:00 AM Scheduled Provider: Location:[facility] Appointment Type: Medicare Wellness Subsequent Appointment Date:05/03/2024 09:00:00 AM Scheduled Provider:Kylah Garcia MD Location:[facility] Appointment Type: Open Appointment Date:05/21/2024 10:00:00 AM Scheduled Provider: [facility] Type:CV Holter/Event (FT) Appointment Date:05/25/2024 01:00:00 PM Scheduled Provider:Kashif Barnett MD [facility] Type:Cardiology Follow Up (FT) [facility] Future Appointments Appointment Date:05/30/2024 03:45:00 PM Scheduled Provider:[facility]ashif Barnett [facility] Type:Cardiology Follow Up (FT) Appointment Date:11/01/2024 09:15:00 AM Scheduled Provider:Kylah [facility] MD [facility] Type: Open Appointment Date:05/02/2025 08:00:00 AM Scheduled Provider: Location:[facility] Appointment Type: Medicare Wellness Subsequent [facility] Future Appointments Appointment Date:08/31/2024 01:00:00 PM Scheduled Provider:Kashif Barnett MD [facility] App[facility] Type:Cardiology Follow Up (FT) Appointment Date:11/01/2024 09:15:00 AM Scheduled Provider:Kylah Garcia MD Location:[facility] Appointment Type: Open Appointment Date:05/02/2025 08:00:00 AM Scheduled Provider: Location:[facility] Appointment Type:FM Medicare Wellness Subsequent [facility] Future Appointments Appointment Date:11/01/2024 09:15:00 AM Scheduled Provider:Kylah Garcia MD Location:[facility] Appointment Type:FM Open Appointment Date:12/11/2024 01:00:00 PM Scheduled Provider:Dixon Dubose PA-C Location:FT.Cardiology Clinic Appointment Type:Cardiology Follow Up (FT) Appointment Date:05/02/2025 08:00:00 AM Scheduled Provider: Location:[facility] Appointment Type: Medicare Wellness Subsequent [facility] evaluation + Plan note Future Appointments Appointment Date:11/01/2024 09:15:00 AM Scheduled Provider:Kylah Garcia MD Location:[facility] Appointment Type:FM Open Appointment Date:11/19/2024 02:15:00 PM Scheduled Provider: Location:[facility] Appointment Type:Surgery FT Appointment Date:12/12/2024 10:15:00 AM Scheduled Provider:Dixon Dubose PA-C Location:[facility] Appointment Type:Cardiology Follow Up (FT) Appointment Date:05/02/2025 08:00:00 AM Scheduled Provider: Location:[facility] Appointment Type: Medicare Wellness Subsequent [facility] evaluation + Plan note Future Appointments Appointment Date:11/19/2024 02:15:00 PM Scheduled Provider: Location:[facility] Appointment Type:Surgery FT Appointment Date:12/12/2024 10:15:00 AM Scheduled Provider:Dixon Dubose PA-C Location:FT.Cardiology Clinic Appointment Type:Cardiology Follow Up (FT) Appointment Date:05/02/2025 08:00:00 AM Scheduled Provider: Location:[facility] Appointment Type: Medicare Wellness Subsequent [facility] evaluation noteNo [employer] Other evaluation note* Diagnosis Pain in both upper extremities- Primary Carpal tunnel syndrome, bilateral Carpal tunnel syndrome [facility] Diagnosis Pre-op testing- Primary Unspecified pre-operative examination Right hand pain Pain in soft tissues of limb Arm weakness Other musculoskeletal symptoms referable to limbs documented [facility] this encounter [facility]* Diagnosis Foreign body of right ear, initial encounter- Primary documented in this encounter [facility]* Diagnosis Status post carpal tunnel release- Primary Other postprocedural status documented in this encounter [facility] Narrative - Reported* Type Description Date Medical History type 2 diabetes Medical History hypothyroid Medical History Afib Surgical History multiple neck sx Surgical History tonsillectomy Surgical History adenoidectomy Surgical History MAU cataract Hospitalization History see above [facility] Other History general Narrative - Reported* Type Description Date Medical History type 2 diabetes Medical History hypothyroid Medical History Afib Surgical History multiple neck sx Surgical History tonsillectomy Surgical History adenoidectomy Surgical History MAU cataract Hospitalization History see above Hospitalization History low [facility] Other History general Narrative - Reported* Type [...] 2 DM, generalized weakness hypomagnesiema, RADHA 11/13/23-11/15/23 [facility] Other Hospital Discharge instructions No data available for this section [facility] No data available for this section [facility] Summary Purpose Family History No Family [...] hospitalization for symptomatic hyponatremia, [facility] [place] [address] [place] ph [phone], fax [phone] Diagnosis 1 Hyponatremia (E87.1) Referral Organization [facility] Family Medicin [employer] Kevin Referring Provider First Name Jada Referring Provider Last Name [facility] Referring Provider Specialty [facility] Referred Organization [facility] Referred Provider Romeo Lara Referred Address [address], [place],[address] Referred Provider Specialty Internal Med icine Referral Priority Routine General Notes Gabrielle Reid 06/2023 01:35:25 PM > referral received and faxed Clinical Notes [facility] [place] [address] [place] ph [phone], fax [phone] Reason hyponatremia, recent hospitalization [facility] Diagnosis 1 Hyponatremia (E87.1) Referral Organization [facility] Family Medic[facility] [place] Referring Provider First Name Jada Referring Provider Last Name [facility] Referring Provider Specialty [facility] Referred Organization [facility] Referred Address [address] [place], [place],[address] Referred Provider Specialty Nephrology Referral Priority Routine [...] section and content) DATE CREATED AUTHOR 06/03/2020 [facility] DATE CREATED AUTHOR AUTHOR'S ORGANIZ ATION 11/10/2023 [facility] DATE CREATED AUTHOR AUTHOR'S ORGANIZ ATION 05/03/2024 [facility] DATE CREATED AUTHOR AUTHOR'S ORGANIZ ATION 07/01/2024 [facility] DATE CREATED AUTHOR AUTHOR'S ORGANIZ ATION 08/17/2024 [facility] DATE CREATED AUTHOR AUTHOR'S ORGANIZ ATION 11/02/2024 [facility] DATE CREATED AUTHOR AUTHOR'S ORGANIZ ATION 11/14/2024 [facility] DATE CREATED AUTHOR AUTHOR'S ORGANIZ ATION 11/24/2024 [facility] DATE CREATED AUTHOR AUTHOR'S ORGANIZ ATION 11/25/2024 [facility] DATE CREATED AUTHOR AUTHOR'S ORGANIZ ATION 11/29/2024 [facility] DATE CREATED AUTHOR AUTHOR'S ORGANIZ ATION 12/02/2024 [facility] REASON FOR VISIT (unrecogniz ed section and content) Reason Comments Refill Request Reason Comments Follow-up Reason Comments Ear Problem Hearing aid battery in ear. Reason Comments Post-op Source Comments (unrecognize d section and content) In the event this informatio n is protected by the Federal Confidentiality of Alcohol and Drug Abuse Patient Records regulations: The Federal rules restrict any use of the information to criminally investigate or prosecute any alcohol or drug abuse patient.[facility] Patient Care team informatio n (unrecognized section and content) Hedis Specialist Relationship Specialty Start Date End Date Kylah Garcia MD PCP - General Family Medicine 02/03/24 Hedis Specialist Relationship Specialty Start Date End Date Kylah Garcia MD PCP - General Family Medicine 02/03/24 Hedis Specialist Relationship Specialty Start Date End Date Kylah Garcia MD PCP - General Family Medicine 02/03/24 Hedis Specialist Relationship Specialty Start Date End Date Kylah Garcia MD PCP - General Family Medicine 02/03/24 Hedis Specialist Relationship Specialty Start Date End Date Kylah Garcia MD PCP - General Family Medicine 02/03/24 Hedis Specialist Relationship Specialty Start Date End Date Kylah Garcia MD [facility] [place] [address] [address] PCP - General Family Medicine 11/26/24 Hedis Specialist Relationship Specialty Start Date End Date Kylah Garcia MD [address] [place] [address] PCP - General Family Medicine 11/26/24 Hedis Specialist Relationship Specialty Start Date End Date Kylah Garcia MD [address] [place] [address] PCP - General Family Medicine 11/26/24 Hedis Specialist Relationship Specialty Start Date End Date Kylah Garcia MD [address] [place] [address] PCP - General Family Medicine 11/26/24 FOR RECORDS PERTAINING TO PATIENTS WHO ARE [...] BE BASED ON THE PRIMARY CLINICAL RECORDS. [facility]. provides no warranty or guarantee of the accuracy or completeness of information in this document.
--- NOTE | 2024-12-14 03:26 | ED_ITS ---
HPI HPI - General Adult General Chief complaint: Altered Mental Status Stated complaint: WEAKNESS Time Seen by Provider: 12/14/24 03:20 Source: patient, medical record and other Source information: EMS crew Mode of arrival: ambulance Limitations: altered mental status Limitations comment: oriented to person and place History of Present Illness HPI narrative: 84-year-old male presents to the emergency department because he is confused. Initially the history is obtained from the paramedics. The called paramedics because he seemed to be confused in the middle the night and became incontinent. She reported to them that this is unusual for him. He is unable to provide any history, he does not know why he is here. Paramedics checked blood sugar and it was normal. Related Data Home Medications ?Medication ?Instructions ?Recorded ?Confirmed glimepiride 2 mg tablet 2 mg PO DAILY 08/21/23 12/14/24 levothyroxine 25 mcg tablet 25 mcg PO QAM 08/21/23 12/14/24 pravastatin 40 mg tablet 40 mg PO DAILY 08/21/23 12/14/24 tamsulosin 0.4 mg capsule 0.4 mg PO DAILY 08/21/23 12/14/24 warfarin 5 mg tablet (Jantoven) 5 mg PO MOWEFR 08/21/23 12/14/24 warfarin 2.5 mg tablet (Jantoven) 2.5 mg PO .4 days a week 08/22/23 12/14/24 finasteride 5 mg tablet 5 mg PO .qd 11/13/23 12/14/24 TUMERIC 08/13/24 coenzyme Q10 100 mg capsule (Co 100 mg PO DAILY 08/13/24 12/14/24 Q-10) cyclobenzaprine 10 mg tablet 10 mg PO TID PRN muscle spasm 08/13/24 12/14/24 gabapentin 300 mg capsule mg 08/13/24 vitamin B complex (B-Complex 1 tab PO DAILY 08/13/24 08/13/24 tablet) Previous Rx's ?Medication ?Instructions ?Recorded atenolol 25 mg tablet 25 mg PO BID #60 tabs 11/15/23 sodium chloride 1,000 mg soluble 1,000 mg PO TID #90 tabs 11/15/23 tablet Allergies Allergy/AdvReac Type Severity Reaction Status Date / Time No Known Drug Allergies Allergy Verified 12/14/24 03:51 Opioid HPI Opioid Management Most Recent Opioid Data: Last Pain Scale 5 11/22/24 18:32 11/22/24 Ur Phencyclidine Scrn Negative (NEGATIVE) 08/21/23 03:22 07/06 Review of Systems ROS Narrative Not obtainable, altered mental status [facility] Medical History (Updated 12/14/24 @ 05:12 by Joe España MD) Hyponatremia ?E87.1 - Hypo-osmolality and hyponatremia (ICD-10) Hypomagnesemia ?E83.42 - Hypomagnesemia (ICD-10) RADHA (acute kidney injury) ?N17.9 - Acute kidney failure, unspecified (ICD-10) Paroxysmal atrial fibrillation ?I48.0 - Paroxysmal atrial fibrillation (ICD-10) Type 2 diabetes mellitus with hyperglycemia ?E11.65 - Type 2 diabetes mellitus with hyperglycemia (ICD-10) Influenza ?J11.1 - Influenza due to unidentified influenza virus with other respiratory manifestations (ICD-10) Hypomagnesemia ?E83.42 - Hypomagnesemia (ICD-10) Acute hyponatremia ?E87.1 - Hypo-osmolality and hyponatremia (ICD-10) Acute confusion ?R41.0 - Disorientation, unspecified (ICD-10) Diabetes ?E11.9 - Type 2 diabetes mellitus without complications (ICD-10) High cholesterol ?E78.00 - Pure hypercholesterolemia, unspecified (ICD-10) Atrial fibrillation ?I48.91 - Unspecified atrial fibrillation (ICD-10) Family History Father Family history of myocardial infarction Family history of hypertension Mother Family history of cancer Family history of diabetes mellitus Social History Within the past year, how often did you have a drink containing alcohol: 2-4 times a month Smoking status: Never smoker Highest level of school completed/degree received: high school graduate Little interest or pleasure in doing things: not at all Feeling down, depressed, or hopeless: not at all Gender Identity: male Exam Narrative Exam Narrative: Nurses note and vital signs reviewed and patient is not hypoxic. General: The patient appears in no apparent distress. Skin: Warm, dry, no pallor noted. There is no rash noted. Head: Normocephalic, atraumatic Eye: Normal conjunctiva, no drainage Ears, Nose, Mouth, and Throat: oral mucosa is moist. Nares patent. Cardiovascular: Irregularly irregular Respiratory: Patient is in no distress, no accessory muscle use, lungs are clear to auscultation, no wheezing, rales or rhonchi GI: Soft and nontender Musculoskeletal: The patient has no evidence of calf tenderness, no pitting edema, symmetrical pulses noted bilaterally Neurological: Awake and alert. He knows his name and where he is. He does not know why he is here or what year it is Psychiatric: Cooperative Constitutional Vital Signs, click to edit/add: Last Vital Signs Pulse 74 12/14/24 03:19 Resp 16 12/14/24 03:19 BP 157/70 H 12/14/24 03:19 Pulse Ox 99 12/14/24 04:01 O2 Del Method Room Air 12/14/24 04:01 Course Vital Signs Vital signs: Vital Signs Pulse Rate 74 12/14/24 03:19 Respiratory Rate 16 12/14/24 03:19 Blood Pressure 157/70 H 12/14/24 03:19 Pulse Oximetry 97 12/14/24 03:19 Oxygen Delivery Method Room Air 12/14/24 03:19 Pulse Rate 74 12/14/24 03:19 Respiratory Rate 16 12/14/24 03:19 Blood Pressure 157/70 H 12/14/24 03:19 Pulse Oximetry 99 12/14/24 04:01 Oxygen Delivery Method Room Air 12/14/24 04:01 Medical Decision Making MDM Narrative Medical decision making narrative: His workup indicates a sodium of 122. His states that this has happened twice in the past and they could not determine the cause. He is being given normal saline at 75 mL an hour and is being admitted. The rest of his workup is negative including CAT scan. No evidence of UTI and blood cultures are pending. Treatment diagnosis and disposition were discussed with the patient's Differential Diagnosis Differential Diagnosis: UTI, hyponatremia, dehydration, COVID, influenza, pneumonia Lab Data Lab results reviewed: Yes I reviewed the patient's lab results Labs: Lab Results 12/14/24 12/14/24 Range/Units 03:28 03:40 WBC 9.9 (4.0-11.0) 10^3/uL RBC 3.81 L (4.70-6.10) 10^6/uL Hgb 11.8 L (14.0-18.0) g/dL Hct 33.0 L (42.0-54.0) % MCV 86.6 (80.0-94.0) fL MCH 31.0 (25.9-34.0) pg MCHC 35.8 H (29.9-35.2) g/dL RDW 12.5 (11.0-15.0) % Plt Count 245 (150-450) 10^3/uL MPV 10.6 (9.5-13.5) fL Neut % (Auto) 79.7 H (43.0-75.0) % Lymph % (Auto) 10.5 L (20.5-60.0) % [place] % (Auto) 7.5 (1.7-12.0) % Eos % (Auto) 0.1 L (0.9-7.0) % Baso % (Auto) 0.5 (0.2-2.0) % Neut # (Auto) 7.9 H (1.4-6.5) 10^3/uL Lymph # (Auto) 1.0 L (1.2-3.8) 10^3/uL [place] # (Auto) 0.7 (0.3-0.8) 10^3/uL Eos # (Auto) 0.0 (0.0-0.7) 10^3/uL Baso # (Auto) 0.1 (0.0-0.1) 10^3/uL Abs Immat Gran (auto) 0.17 H (0.00-0.03) 10^3/uL Imm/Tot Granulo (auto) 1.7 H (0.0-0.5) % PT 21.6 H (9.0-11.6) sec INR 2.20 Sodium 122 L* (136-145) mmol/L Potassium 4.5 (3.5-5.1) mmol/L Chloride 90 L (98-107) mmol/L Carbon Dioxide 23.0 (21.0-32.0) mmol/L Anion Gap 13.5 BUN 11.0 (7.0-18.0) mg/dL Creatinine 1.00 (0.70-1.30) mg/dL Est GFR ( Amer) >60 (>=60 mL/min/1.73m^2) Est GFR (Non-Af Amer) >60 (>=60 mL/min/1.73m^2) BUN/Creatinine Ratio 11.0 Glucose 95 (74-106) mg/dL Calcium 8.4 L (8.5-10.1) mg/dL Troponin I High Sens 10.3 (4.0-76.1) pg/mL Urine Color Yellow (YELLOW) Urine Clarity Clear (CLEAR) Urine pH 7.0 (5.0-9.0) Ur Specific [place] 1.015 (1.005-1.025) Urine Protein Negative (NEG/TRACE) mg/dL Urine Glucose (UA) Negative (NEGATIVE) mg/dL Urine Ketones 15 A (NEGATIVE) mg/dL Urine Occult Blood Negative (NEGATIVE) Urine Nitrite Negative (NEGATIVE) Urine Bilirubin Negative (NEGATIVE) Urine Urobilinogen 1.0 (0.2-1.0) EU/dL Ur Leukocyte Esterase Negative (NEGATIVE) Urine RBC None seen (0-2) #/HPF Urine WBC 0-2 A (NONE SEEN) #/HPF Ur Squamous Epith Cells None seen (NONE/RARE) #/LPF Urine Crystals None seen (None Seen) #/HPF Urine Bacteria None seen (NONE SEEN) #/HPF Urine Casts None seen (NONE SEEN) #/LPF Urine Mucus None seen (NONE SEEN) Ethanol Quant <3 mg/dL Influenza Type A Ag Negative Influenza Type B Ag Negative SARS-CoV-2 Ag (CV2AG) Negative (NEGATIVE) Imaging Data Chest x-ray: Radiologist's impression: ITS Impressions Chest X-Ray 12/14/24 03:24 IMPRESSION: 1. Stable enlarged cardiac silhouette with trace pleural effusions. Electronically authenticated by: Kelli LIMA Date: 12/14/2024 04:[address] 12/14/24 03:24 IMPRESSION: 1. No acute intracranial abnormality. No hemorrhage or mass effect. 2. Atrophy. 3. Vascular calcification. 4. Sinus thickening. Electronically authenticated by: AXEL GALVEZ Date: 12/14/2024 04:34 ECG Data Attestation: I personally reviewed and interpreted this ECG as follows: (EKG on my interpretation shows atrial fibrillation with a rate of 74) Discharge Plan Discharge Chief Complaint: Altered Mental Status Clinical Impression: Hyponatremia, Altered mental status Patient Disposition: Admitted As Inpatient Time of Disposition Decision: 05:12 Condition: Fair
[2024-12-14 03:58] LABS: Bilirubin Urine NEGATIVE (NEGATIVE); Blood Urine NEGATIVE (NEGATIVE); Clarity Urine CLEAR (CLEAR); Color Urine YELLOW (YELLOW); Glucose Urine UA NEGATIVE (NEGATIVE); Ketones Urine 15 mg/dL (NEGATIVE); Leukocyte Esterase Urine NEGATIVE (NEGATIVE); Nitrite Urine NEGATIVE (NEGATIVE); Protein Urine NEGATIVE (NEG/TRACE); Specific Gravity Urine 1.015 (1.005-1.025)
[2024-12-14 04:02] LABS: Basophils Absolute Auto 0.1 10^3/uL (0.0-0.1); Basophils Percent Auto 0.5 % (0.2-2.0); Eosinophils Percent Auto 0.1 % (0.9-7.0); Hemoglobin 11.8 g/dL (14.0-18.0); Immature Granulocytes Abs Auto 0.17 10^3/uL (0.00-0.03); Immature Granulocytes Pct Auto 1.7 % (0.0-0.5); Lymphocytes Percent Auto 10.5 % (20.5-60.0); Mean Corpuscular HGB Conc 35.8 g/dL (29.9-35.2); Mean Corpuscular Volume 86.6 fL (80.0-94.0); Mean Platelet Volume 10.6 fL (9.5-13.5); Monocytes Absolute Auto 0.7 10^3/uL (0.3-0.8); Monocytes Percent Auto 7.5 % (1.7-12.0); Neutrophils Absolute Auto 7.9 10^3/uL (1.4-6.5); Neutrophils Percent Auto 79.7 % (43.0-75.0); Platelet Count 245 10^3/uL (150-450); Red Blood Count 3.81 10^6/uL (4.70-6.10); Red Cell Distribution Width 12.5 % (11.0-15.0); White Blood Count 9.9 10^3/uL (4.0-11.0)
--- NOTE | 2024-12-14 04:08 | PC.NURSE ---
states that pt is normally fully A & O x 4, manages his own medication, doctor appointments, drives, and shops for himself. He is currently alert to person and place only. He does not recall his meds and last dose. His attempted to go through his medications with me, but states, ' I'm not certain about these. I'm giving you my best guess because he does his own medications .
[2024-12-14 04:10] LABS: Anion Gap 13.5; Calcium 8.4 mg/dL (8.5-10.1); Chloride 90 mmol/L (98-107); Estimated GFR (African America >60 (>=60 mL/min/1.73m^2); Estimated GFR (Non-African Ame >60 (>=60 mL/min/1.73m^2); Glucose 95 mg/dL (74-106); Potassium 4.5 mmol/L (3.5-5.1); Prothrombin Time 21.6 sec (9.0-11.6)
[2024-12-14 04:11] LABS: Influenza Virus A Antigen Negative; Influenza Virus B Antigen Negative; Internal Control Within Normal Limits; SARS-CoV-2 Ag NEGATIVE (NEGATIVE)
[2024-12-14 04:13] LABS: Bacteria Urine NONE SEEN #/HPF (NONE SEEN); Cast Seen? NONE SEEN #/LPF (NONE SEEN); Crystals Seen? None Seen #/HPF (None Seen); Mucus Urine NONE SEEN (NONE SEEN); RBC Urine NONE SEEN #/HPF (0-2); Squamous Epithelial Cell Urine NONE SEEN #/LPF (NONE/RARE); WBC Urine 0-2 #/HPF (NONE SEEN)
[2024-12-14 04:18] LABS: Troponin I High Sensitivity 10.3 pg/mL (4.0-76.1)
--- NOTE | 2024-12-14 04:24 | PC.NURSE ---
Returns from XR.
[2024-12-14 04:35] LABS: Ethanol <3 mg/dL
[2024-12-14 04:36] LABS: Sodium 122 mmol/L (136-145)
[2024-12-14] MEDS: 0.9 % SODIUM CHLORIDE 1,000 ML 75 ML IV ×2 (05:04→15:24)
--- OUTSIDE RECORDS SUMMARY | 2024-12-14 06:09 | XMS_ITS | CCD ---
Author Organization [facility] Care Team Providers Care Nutritional Health Coach Name Role Phone Jada Rene Unavailable Unavailable Primary Care Provider Unavailrogerio e Edgard Jada Endy Attending Unavailable Edgard Jada A Admitting Unavailable Edgard Jada Endy Primary Care Unavailable Edgard Jada Endy Attending Unavailable Edgard Jada Endy Admitting Unavailable Edgard Jada A Primary Care Unavailable Kylah Garcia Primary Care Physician MD Kylah Garcia Attending Unavailable MD Kylah [...] Unavailable Edgar Axel Serina Referring Unavailable MD Kasihf Barnett Attending Unavailable MD Kylah Garcia Referring [...] Ericka, MD Kashif Craig Referring Unavailable Kylah aGrcia Attending Unavailable Kylah Garcia Admitting Unavailable Hernández, Axel Smalls Referring Unavailable Hernández, Axel T Admitting Unavailable Hernández, Axel T Attending Unavailable Kylah Garcia Attending Unavailable Kylah Garcia Admitting Unavailable Hernández, Axel T Admitting Unavailable Hernández, Axel Smalls Attending Unavailable Hernández, Aexl Smalls Referring Unavailable Kylah Garcia Attending Unavailable Kylah [...] Medication Allergies] Propensity to adverse reactions (disorder) [facility] Repository Medications Current Medications Medication Drug Class(es) Dates Sig (Normalized) Sig (Original) acetaminophen 325 mg / HYDROcodone bitartrate 5 mg oral tablet (11 sources) Opioid Agonist Start: 03-20-2024 take 1 tablet by mouth every four hours as needed for pain [place] 325 mg-5 mg oral tablet See Instructions, for pain, 10 tab(s), Refill(s) 0, 1 tab(s) Oral q4hr PRN Pain. Duration 7 days., [facility]/pharmacy #[id number], 180.5, cm, 03/20/24 15:05:00 EDT, Height/Length Dosing, 82.5, kg, 03/20/24 15:05:00 EDT, Weight Dosing Start Date: 03/20/24 Status: Ordered End: 11-26-2024 HYDROcodone-acetaminophen (N orco) 5-325 MG tablet 11/26/2024 Discontinued (Therapy completed) atenolol 25 mg oral tablet (20 sources) beta-Adrenergic Dimitris Start: 10-22-2024 atenol ol 25 mg Tab See Instructions, take 1/2 tab daily, # 90 tab(s), Refills(s) 1, Pharmacy: [facility], 178, cm, 09/10/24 13:01:00 EDT, Height/Length Dosing, 80.1, kg, 09/10/24 13:01:00 EDT, Weight Dosing Start Date: 10/22/24 Status: Ordered Start: 04-20-2024 atenolol 25 mg Tab See Instructions, take 1/2 tab daily, # 30 tab(s), Refills(s) 5, [id number] 180, cm, 04/20/24 13:27:00 EDT, Height/Length Dosing, 82.2, kg, 04/20/24 13:27:00 EDT, Weight Dosing Start Date: 04/20/24 Status: Ordered Start: 10-06-2015 take 1 tablet by alyssa once daily atenolol 25 mg Tab 25 mg = 1 tab(s), Oral, Daily, # 90 tab(s), Refills(s) 0, Pharmacy: [facility], 178.2, cm, 02/02/24 10:29:00 [...] Daily, # 90 tab(s), Refills(s) 1, Pharmacy: [facility]/pharmacy #[id number], 178.6, cm, 11/01/24 9:21:00 EST, Height/Length Dosing, 81.3, kg, 11/01/24 9:21:00 EST, Weight Dosing Start Date: 11/08/24 Status: Ordered Comment on above: Take 1 tablet by alyssa once daily. fluticasone propionate 0.05 mg/actuat metered dose nasal spray (14 sources) Corticosteroid Start: 08-31-2024 fluticasone Nasal 0.05 mg/inh [place] See Instructions, 48 mL, Refill(s) 1, USE 1 SPRAY IN EACH NOSTRIL TWICE A DAY, [id number], 178, cm, 08/28/24 14:50:00 EDT, Height/Length Dosing, 82.2, kg, 08/28/24 14:50:00 EDT, Weight Dosing Start Date: 08/31/24 Status: Ordered Start: 07-03-2024 take 1 spray(s) nasa l route twice daily Flonase 0.05 mg/inh Daniels 1 spray(s), Nasal, BID, 16 gram, Refill(s) 0, each nostril, [facility]/pharmacy #[id number], 178, cm, 07/03/24 10:05:00 EDT, [...] Daily, # 90 cap(s), Refills(s) 1, Pharmacy: [facility], 178, cm, 07/03/24 10:05:00 EDT, Height/Length Dosing, 80.8, kg, 07/03/24 10:05:00 EDT, Weight Dosing Start Date: 07/03/24 Status: Ordered glimepiride 2 mg oral tablet (20 sources) Sulfonylurea Start: 10-14-2014 glimepiride 2 mg Tab See Instructions, TAKE 1 TABLET DAILY, # 3 tab(s), Refills(s) 0, Pharmacy: [facility], 178, cm, 08/07/24 10:59:00 EDT, [...] STOMACH, # 3 tab(s), Refills(s) 0, Pharmacy: [facility]/pharmacy #[id number], 178, cm, 08/07/24 10:59:00 EDT, Height/Length Dosing, 78.2, kg, 08/07/24 10:59:00 EDT, Weight Dosing Start Date: 08/20/24 Status: Ordered Start: 02-13-2024 take 1 tablet by alyssa th once daily levothyroxine 25 mcg (0.025 mg) Tab 25 mcg = 1 tab(s), Oral, Daily, on an empty stomach, # 90 tab(s), Refills(s) 1, Pharmacy: [facility], 178.2, cm, 02/02/24 10:29:00 [...] Daily, # 90 cap(s), Refills(s) 1, Pharmacy: [facility], 178, cm, 08/28/24 14:50:00 EDT, Height/Length Dosing, 82.2, kg, 08/28/24 14:50:00 EDT, Weight Dosing Start Date: 08/30/24 Status: Ordered pravastatin sodium 40 mg oral tablet (20 sources) HMG-CoA Reductase Inhibitor Start: 10-09-2014 take 1 tablet by mouth once daily pravastatin 40 mg Tab 40 mg = 1 tab(s), Oral, Daily, # 90 tab(s), Refills(s) 3, Pharmacy: [facility], 178, cm, 09/10/24 13:01:00 EDT, [...] activity, # 5 tab(s), Refills(s) 0, Pharmacy: [facility], 178, cm, 07/03/24 10:05:00 EDT, Height/Length Dosing, 80.8, kg, 07/03/24 10:05:00 EDT, Weight Dosing Start Date: 07/03/24 Status: Ordered Start: 02-02-2024 take 1 tablet by alyssa th once daily as needed sildenafil 100 mg Tab 100 mg = 1 tab(s), Oral, Daily, PRN for erectile dysfunction, 1 hour before sexual activity, # 5 tab(s), Refills(s) 0, Pharmacy: [facility], 178.2, cm, 02/02/24 10:29:00 [...] daily, # 90 tab(s), Refills(s) 0, [id number] 178, cm, 06/11/24 12:53:00 EDT, [...] # 90 tab(s), Refills(s) 2, [id number], 180.5, cm, 03/20/24 15:05:00 EDT, [...] DAY, # 90 tab(s), Refills(s) 2, Pharmacy: [facility], 178.2, cm, 12/01/23 13:40:00 [...] tab(s), Refill(s) 0, Take one tablet daily, [facility]/pharmacy #[id number], 178.6, cm, 11/01/24 9:21:00 EST, Height/Length Dosing, 81.3, kg, 11/01/24 9:21:00 EST, Weight Dosing Start Date: 11/13/24 Status: Ordered tamsulosin hydrochloride 0.4 mg oral capsule (20 sources) alpha-Adrenergic Dimitris Start: 10-14-2014 take 1 capsule by mouth once daily tamsulosin 0.4 mg Cap 0.4 mg = 1 cap(s), Oral, Daily, # 90 cap(s), Refills(s) 1, Pharmacy: [facility], 178, cm, 09/10/24 13:01:00 EDT, [...] Coronary atherosclerosis; Translations: [Atherosclerotic heart disease of [place] coronary artery without angina pectoris] Onset: 08-28-2024 [...] sources) Long-term current use of anticoagulant; Translations: [detention (current) use of anticoagulants] Episodic Other aftercare (3 sources) detention (current) use of anticoagulants Episodic Other and [...] vascular disease; Translations: [Atherosclerotic heart disease of [place] coronary artery without angina pectoris] Onset: 11-26-2024 [...] 11-02-2023 Unclassified (1 source) long term care pharmacist (current) use of anticoagulants; Translations: [detention (current) use of anticoagulants] Onset: 06-16-2023 Results Test Name Value Interpretation Reference Range Facil ity Main OR Intraoperative Recor don 11-20-2024 Main OR Intraoperative Record Main OR Intraoperative Record IntraOp Document Type FT Summary Primary Physician: Axel Hernández DO Finalized Date/Time: 11/20/24 07:56:52 Pt. Name: DARIEL ZABALA/Sex: 1940 Male Med Rec #: [id number] Physician: Axel Hernández DO Financial #: [id number] Pt. Type: A Room/Bed: [facility] Admit/Disch: 11/19/24 09:28:12 - 11/19/24 14:30:00 Institution: [...] Pablo DO, CST, James W Role Performed GRISTMILLER Surgeon - Primary ASPARAGUS BUNCHER/SA Time In 11/19/24 12:10:00 11/19/24 12:23:00 11/19/24 12:10:00 Time Out 11/19/24 12:37:00 11/19/24 12:35:00 11/19/24 12:37:00 Procedure CARPAL TUNNEL CARPAL TUNNEL CARPAL TUNNEL RELEASE(Left) RELEASE(Left) RELEASE(Left) Comments DR LOU SUPERVISING Last Modified By: Ambrocio Borges Terry T Sweene, Terry T 11/19/24 12:45:19 11/19/24 12:53:03 11/19/24 12:45:19 Entry 4 Entry 5 Case Attendee Ambrocio Borges Laura C Role Performed Signal Constructor - Primary Scrub - Primary Time In [...] CRNA, Given Participants Edgar ELLIS, Giana Lobato ASPARAGUS BUNCHER, Rudy Woodward Laura C, Ambrocio Borges Time [...] and tissue Entry 1 Skin Integrity Intact, [place], Warm, & Skin Abnormality No Dry Outcomes [...] Hand Ta (more content not included)... Normal [facility] Operative Reporton Operative Report Operative Report SURGERY [...] PATIENT CONDITION: Satisfactory Deanna Weller Dictated: 11/19/2024 [id number] Transcribed: 11/19/2024 cc:Kylah Garcia M.D. [facility] Comment on above: Result Comment: Elec tronically Signed By: Axel Hernández DO\.br\Date and Time Signed: 11/20/24 16:36 EST BMPon 11-19-2024 Anion gap [Moles/Vol] 10 mmol/L Normal 6-16 [facility] Comment on above: Order Comment: To be drawn day of surgery. Performed By: #### 2 [id number] #### [facility] [address] [place] [address] Calcium [Mass/Vol] 9.2 mg/dL Normal 8.9-11.1 [facility] Comment on above: Order Comment: To be drawn day of surgery. Performed By: #### 2 [id number] #### [facility] [address] [place] [address] Chloride [Moles/Vol] 98 mmol/L Low 101-111 [facility] Comment on above: Order Comment: To be drawn day of surgery. Performed By: #### 2 [id number] #### [facility] [address] [place] [address] CO2 [Moles/Vol] 26 mmol/L Normal 21-31 [facility] Comment on above: Order Comment: To be drawn day of surgery. Performed By: #### 2 [id number] #### [facility] [address] [place] [address] Creatinine [Mass/Vol] 0.9 mg/dL Normal 0.5-1.3 [facility] Comment on above: Order Comment: To be drawn day of surgery. Performed By: #### 2 [id number] #### [facility] [address] [place] [address] Glucose [Mass/Vol] 77 mg/dL Normal 55-199 [facility] Comment on above: Order Comment: To be drawn day of surgery. Performed By: #### 2 [id number] #### [facility] [address] [place] [address] Potassium [Moles/Vol] 4.2 mmol/L Normal 3.5-5.3 [facility] Comment on above: Order Comment: To be drawn day of surgery. Performed By: #### 2 [id number] #### [facility] [address] [place] [address] Sodium [Moles/Vol] 130 mmol/L Low 135-145 [facility] Comment on above: Order Comment: To be drawn day of surgery. Performed By: #### 2 [id number] #### [facility] [address] [place] [address] Urea nitrogen [Mass/Vol] 8 mg/dL Normal 5-21 [facility] Comment on above: Order Comment: To be drawn day of surgery. Performed By: #### 2 [id number] #### [facility] [address] [place] [address] Urea nitrogen/Creatinine [Mass ratio] 9 No Units Low 10-20 [facility] Comment on above: Order Comment: To be drawn day of surgery. Performed By: #### 2 [id number] #### [facility] [address] [place] [address] CHEMISTRYOrdered By: Lab ROP User on 11-19-2024 Glucose [Mass/Vol] 78 mg/dL Normal 55 - 99 mg/dL [facility] POC Subsection Comment on above: Result Comment: Hilary danna Meter POC Username MAYA SOTELO Invalid Interpretation Code [facility] POC Subsection Sodium [Moles/Vol] [id number] mmol/L Invalid Interpretation Code [facility] POC Subsection Sodium [Moles/Vol] [id number] mmol/L Invalid Interpretation Code [facility] POC Subsection CHEMISTRYOrdered By: SYSTEM SYSTEM on [...] 38.5 s High 25.1 - 36.5 second(s) [facility] Auto Coag Comment on above: Interpretive Data: [...] the same coagulation reagent and instrumentation as [facility]. Currently there are no coagulation studies available worldwide for children to 14 days, and no normal ranges. Heparin therapeutic range (represented by Anti-Factor Xa activity of 0.2 - 0.4 U/mL) corresponds to PTT of 56.6 - 109.0 sec. INR Coag (PPP) [Relative time] 1.11 {INR} Invalid Interpretation Code [facility] Auto [employer] Comment on above: Interpretive Data: I NR results are specifically intended to assess patients stabilized on long-term Anticoagulation therapy suggested INR s Less Intensive Anticoagulation 2.0 3.0 Conventional Range 3.0 4.5 PT Coag (PPP) [Time] 12.5 s Normal 9.4 - 1 2.5 second(s) [facility] [employer] Comment on above: Interpretive Data: [...] the same coagulation reagent and instrumentation as [facility]. Currently there are no coagulation studies available worldwide for children to 14 days, and no normal ranges. Capillary Glucose POCon Glucose [Mass/Vol] 78 mg/dL Normal 55-99 [facility] Comment on above: Result Comment: Hilary danna Meter Performed By: #### 2 [id number] #### [facility] [address] [place] [address] Discharge Instructionson Discharge Instructions Discharge Instructions DARIEL [...] Clinic 2024 8:00 AM EDT With: Where: [facility] [address] [address]- New Follow Up Appointments after Discharge Follow Up with GORDO Weller When: 11/28/2024 01:00 PM EST Comments: Keep scheduled appointment. Call for any problems. Where: [address] [place] [phone]- [employer] (1) Medications What How Much When Instructions [...] fluticasone nasal (fluticasone Nasal 0.05 mg/ inh [place]) See instructions USE 1 SPRAY IN EACH [...] Allergies No Known Medication Allergies Education Materials [place], [place] [facility] CARPAL TUNNEL RELEASE INSTRUCTIONS [...] if the (more content not included)... Normal [facility] Comment on above: Result Comment: Elec tronically Signed By: Dirk KHAN, Maya Ott\.br\Date and Time Signed: 11/19/24 13:12 EST [facility] CAPILLARY GLUCOSE POCon 11-19-2024 Glucose [Mass/Vol] 78 mg/dL 55 - 99 mg/dL [facility] Comment on above: Cleaned Meter Original Ordering Provider: DO Axel Hernández [facility] Main OR PACU I Recordon Main OR PACU I Record Main OR PACU I Record PACU Phase I Document Type FT Summary Primary Physician: Axel Hernández DO Finalized Date/Time: 11/19/24 13:24:52 Pt. Name: DARIEL ZABALA /Sex: 1940 Male Med Rec #: [id number] Physician: Axel Hernández DO Financial #: [id number] Pt. Type: A Room/Bed: Admit/Disch: 11/19/24 09:28:12 [...] 13:24 Vicki Sethi RN 11/19/24 13:24 Normal [facility] Main OR PACU II Recordon Main OR PACU II Record Main OR PACU II Record PACU Phase II Document Type FT Summary Primary Physician: Axel Hernández DO Finalized Date/Time: 11/19/24 14:27:02 Pt. Name: DARIEL ZABALA/Sex: 1940 Male Med Rec #: [id number] Physician: Axel Hernández DO Financial #: [id number] Pt. Type: A Room/Bed: Admit/Disch: 11/19/24 09:28:12 [...] By: Maya Sotelo RN 11/19/24 14:27 Normal [facility] Main OR Preoperative Recordo n 11-19-2024 Main OR Preoperative Record Main OR Preoperative Record PreOp Document Type FT Summary Primary Physician: Axel Hernández DO Finalized Date/Time: 11/19/24 12:53:23 Pt. Name: CLIFFORDKassiDARIEL/Sex: 1940 Male Med Rec #: [id number] Physician: Axel Hernández DO Financial #: [id number] Pt. Type: A Room/Bed: [facility] Admit/Disch: 11/19/24 09:28:12 - Institution: Case Times [...] Borges 11/19/24 12:53 Ambrocio Borges 11/19/24 12:53 [facility] PT & PTTon 11-19-2024 aPTT Coag (PPP) [Time] 38.5 second(s) High 25.1-36.5 [facility] Comment on above: Result Comment: [...] the same coagulation reagent and instrumentation as [facility]. Currently there are no coagulation studies available worldwide for children to 14 days, and no normal ranges. Heparin therapeutic range (represented by Anti-Factor Xa activity of 0.2 - 0.4 U/mL) corresponds to PTT of 56.6 - 109.0 sec. Performed By: #### 1 [id number] #### [facility] [address] [place] [address] INR Coag (PPP) [Relative time] 1.11 {INR} Invalid Interpretation Code [facility] Comment on above: Result Comment: INR results are specifically intended to assess patients stabilized on long-term Anticoagulation therapy suggested INR???s ???Less Intensive Anticoagulation??? 2.0 ??? 3.0 Conventional Range 3.0 ??? 4.5 Performed By: #### 1 [id number] #### [facility] [address] [facility] [place] [address] PT Coag (PPP) [Time] 12.5 second(s) Normal 9.4-12.5 [facility] Comment on above: Result Comment: [...] the same coagulation reagent and instrumentation as [facility]. Currently there are no coagulation studies available worldwide for children to 14 days, and no normal ranges. Performed By: #### 1 [id number] #### [facility] [address] [place] [address] eGFRon 11-19-2024 eGFR 85 mL/min/1.73 m2 Normal >=59 [facility] Comment on above: Performed By: #### 1 [id number] #### [facility] [address] [place] [address] BMPon 11-12-2024 Anion gap [Moles/Vol] 7 mmol/L Normal 6-16 [facility] Comment on above: Performed By: #### 2 [id number] #### [facility] [address] [place] [address] Calcium [Mass/Vol] 8.8 mg/dL Low 8.9-11.1 [facility] Comment on above: Performed By: #### 2 [id number] #### [facility] [address] [place] [address] Chloride [Moles/Vol] 97 mmol/L Low 101-111 [facility] Comment on above: Performed By: #### 2 [id number] #### [facility] [address] [place] [address] CO2 [Moles/Vol] 28 mmol/L Normal 21-31 [facility] Comment on above: Performed By: #### 2 [id number] #### [facility] [address] [place] [address] Creatinine [Mass/Vol] 0.9 mg/dL Normal 0.5-1.3 [facility] Comment on above: Performed By: #### 2 [id number] #### [facility] [address] [place] [address] Glucose [Mass/Vol] 106 mg/dL Normal 55-199 [facility] Comment on above: Performed By: #### 2 [id number] #### [facility] [address] [place] [address] Potassium [Moles/Vol] 4.4 mmol/L Normal 3.5-5.3 [facility] Comment on above: Performed By: #### 2 [id number] #### [facility] [address] [place] [address] Sodium [Moles/Vol] 128 mmol/L Low 135-145 [facility] Comment on above: Performed By: #### 2 [id number] #### [facility] [address] [place] [address] Urea nitrogen [Mass/Vol] 12 mg/dL Normal 5-21 [facility] Comment on above: Performed By: #### 2 [id number] #### [facility] [address] [place] [address] Urea nitrogen/Creatinine [Mass ratio] 13 No Units Normal 10-20 [facility] Comment on above: Performed By: #### 2 [id number] #### [facility] [address] [place] [address] CHEMISTRYOrdered By: SYSTEM SYSTEM on 11-12-2024 Anion [...] (Bld) [Mass fraction] 5.4 % Normal <=5.9% [facility] [employer] [id number] 11-12-2024 HbA1c (Bld) [Mass fraction] 5.4 % Normal <=5.9 [facility] Comment on above: Performed By: #### 7 [id number] #### [facility] [address] [place] [id number] Inpatient Patient Summaryon 11-12-2024 Inpatient Patient Summary Inpatient Patient Summary [address] [address] [facility] Clinical Discharge Instructions PERSON INFORMATION Name: DARIEL ZABALA PHYSICIANS Admitting Physician: Axel Hernández DO Attending Physician: Axel Hernández DO PCP: Kylah Garcia MD Discharge Diagnosis: Carpal tunnel syndrome on left Comment: PATIENT EDUCATION INFORMATION Instructions: Edgar Gonzalez Carpal Tunnel Release Instructions (Custom) (CUSTOM) Medication Leaflets: Follow up: With: Address: When: Axel Hernández [address] [place] [address] [employer] (1) Comments: Keep scheduled appointment Type Location Start [facility] 11/19/2024 2:15 PM 11/19/2024 2:45 PM Confirmed Cardiology Follow Up (FT) [facility] 12/12/2024 10:15 AM 12/12/2024 10:30 AM Confirmed Medicare Wellness Subsequent [facility] [place] 05/02/2025 8:00 AM 05/02/2025 9:00 AM Confirmed [...] 1. fluticasone nasal (fluticasone Nasal 0.05 mg/inh [place]) USE 1 SPRAY IN EACH NOSTRIL TWICE [...] Tablets By Mouth every day. Comment: Normal [facility] Outpatient Surgery Discharge Instructionon 11-12-2024 Outpatient Surgery Discharge Instruction Outpatient Surgery Discharge Instruction [address] [address] Patient Discharge Instructions PERSON INFORMATION [...] Follow up: With: Address: When: Axel Hernández [address] [place] [phone] Business (1) Comments: Keep scheduled appointment Type Location Start [facility] 11/19/2024 2:15 PM 11/19/2024 2:45 PM Confirmed Cardiology Follow Up (FT) FT.Cardiology Clinic 12/12/2024 10:15 AM 12/12/2024 10:30 AM Confirmed Medicare Wellness Subsequent [facility] [place] 05/02/2025 8:00 AM 05/02/2025 9:00 AM Confirmed [...] to serve you. Thank you for choosing [facility] HERE ARE THE MEDICATION CHANGES [...] 1. fluticasone nasal (fluticasone Nasal 0.05 mg/inh [place]) USE 1 SPRAY IN EACH NOSTRIL TWICE [...] Mouth every day. PATIENT EDUCATION INFORMATION Instructions: [place], [place] [facility] CARPAL TUNNEL RELEASE INSTRUCTIONS Post-Operative Week One You will be in a soft dressing from mid palm to forearm. Please remove dressing two days after surgery. At that point, clean daily with peroxide or betadine and place daily fresh bandaids. Cover for showers with waterproof bandaid, op site occlusive dressing (more content not included)... Normal [facility] TSH With T4fr Reflexon 11-12 TSH Qn 2.17 m[IU]/L Normal 0.34-5.60 [facility] Comment on above: Performed By: #### 1 [id number] #### [facility] [address] [place] [address] eGFRon 11-12-2024 eGFR 85 mL/min/1.73 m2 Normal >=59 [facility] Comment on above: Performed By: #### 1 [id number] #### [facility] [address] [place] [address] Ambulatory Visit Summaryon 1 01-02-2024 Ambulatory Visit Summary Ambulatory Visit Summary DARIEL ZABALA :1940 Visit Date:11/01/2024 Ambulatory Visit Instructions Your Diagnosis ASCVD (arteriosclerotic cardiovascular disease) DM type 2 causing vascular disease Longstanding persistent atrial fibrillation Back spasm Erectile dysfunction due to arterial insufficiency Hypothyroid Hyponatremia BMI 25.0-25.9,adult Over weight Nonsmoker Your Care Team Attending Physician - Klyah Garcia MD Primary Care Physician - Kylah Garcia MD This Is Your Medications List Turmeric (Turmeric 500 mg oral capsule) atenolol (atenolol 25 mg Tab) cholecalciferol (D3) cyanocobalamin (Vitamin B12) finasteride (finasteride 5 mg Tab) fluticasone nasal (fluticasone Nasal 0.05 mg/inh [place]msworth) gabapentin (gabapentin 300 mg Cap) glimepiride (glimepiride [...] Appointments Tuesday 9:20 AM EST With: Where: [address] [id number]- Tuesday 2:15 PM EST With: Where: [facility] Surgical Services Tuesday 10:15 AM EST With: Dixon Dubose PA-C Where: [facility] 2024 8:00 AM EDT With: Where: [address] [id number]- Medications What How Much When Instructions Unchanged [...] fluticasone nasal (fluticasone Nasal 0.05 mg/ inh [place]msworth) See instructions USE 1 SPRAY IN EACH [...] your care. Clarke [facility] Family Medicine Office/Clini c Noteon 11-01-2024 Family [...] cardiovascular disease) (I25.10: Atherosclerotic heart disease of [place] coronary artery without angina pectoris) Denies CP. [...] Recent) 3074 (more content not included)... Normal [facility] Comment on above: Result Comment: Elec tronically Signed By: Adam OCHN, Kylah Marcosbr\Date and Time Signed: 11/01/24 09:42 EST BMPon 10-30-2024 Anion gap [Moles/Vol] 11 mmol/L Normal 6-16 [facility] Comment on above: Performed By: #### 2 [id number] #### [facility] [address] [place] [place] [address] Calcium [Mass/Vol] 9.0 mg/dL Normal 8.9-11.1 [facility] Comment on above: Performed By: #### 2 [id number] #### [facility] [address] [place] [place] [address] Chloride [Moles/Vol] 96 mmol/L Low 101-111 [facility] Comment on above: Performed By: #### 2 [id number] #### [facility] [address] [place] [address] CO2 [Moles/Vol] 27 mmol/L Normal 21-31 [facility] Comment on above: Performed By: #### 2 [id number] #### [facility] [address] [place] [address] Creatinine [Mass/Vol] 0.9 mg/dL Normal 0.5-1.3 [facility] Comment on above: Performed By: #### 2 [id number] #### [facility] [address] [place] [address] Glucose [Mass/Vol] 87 mg/dL Normal 55-199 [facility] Comment on above: Performed By: #### 2 [id number] #### [facility] [address] [place] [address] Potassium [Moles/Vol] 4.7 mmol/L Normal 3.5-5.3 [facility] Comment on above: Performed By: #### 2 [id number] #### [facility] [address] [place] [place] [address] Sodium [Moles/Vol] 129 mmol/L Low 135-145 [facility] Comment on above: Performed By: #### 2 [id number] #### [facility] [address] [place] [address] Urea nitrogen [Mass/Vol] 15 mg/dL Normal 5-21 [facility] Comment on above: Performed By: #### 2 [id number] #### [facility] [address] [place] [address] Urea nitrogen/Creatinine [Mass ratio] 17 No Units Normal 10-20 [facility] Comment on above: Performed By: #### 2 [id number] #### [facility] [address] [place] [address] CBC w/ Auto Diffon 4 Basophils/100 WBC (Bld) 0.9 % Normal 0.0-2.0 [facility] Comment on above: Performed By: #### 2 [id number] #### [facility] [address] [place] [address] Basophils/Leukocytes Auto (Bld) [Pure # fraction] 0.0 E9/L Normal 0.0-0.2 [facility] Comment on above: Performed By: #### 2 [id number] #### [facility] [address] [place] [address] Eosinophils (Bld) [#/Vol] 0.2 E9/L Normal 0.0-0.5 [facility] Comment on above: Performed By: #### 2 275324 #### [facility] [address] [place] [address] Eosinophils/100 WBC (Bld) 3.6 % Normal 0.0-8.0 [facility] Comment on above: Performed By: #### 2 [id number] #### [facility] [address] [place] [address] Erythrocyte distribution width (RBC) [Ratio] 13.4 % Normal 10.9-14.2 [facility] Comment on above: Performed By: #### 2 609671 #### [facility] [address] [place] [address] Hematocrit (Bld) [Volume fraction] 36.3 % Low 37.7-49.0 [facility] Comment on above: Performed By: #### 2 [id number] #### [facility] [address] [place] [address] Hemoglobin (Bld) [Mass/Vol] 12.8 g/dL Low 13.5-17.5 [facility] Comment on above: Performed By: #### 2 932828 #### [facility] [address] [place] [address] Lymphocytes (Bld) [#/Vol] 1.5 E9/L Normal 1.0-4.0 [facility] Comment on above: Performed By: #### 2 186205 #### [facility] [address] [place] [address] Lymphocytes/100 WBC (Bld) 30.1 % Normal 14.0-50.0 [facility] Comment on above: Performed By: #### 2 287341 #### [facility] [address] [place] [address] MCH (RBC) [Entitic mass] 31.7 pg Normal 27.0-34.0 [facility] Comment on above: Performed By: #### 2 584887 #### [facility] [address] [place] [address] MCHC (RBC) [Mass/Vol] 35.2 g/dL Normal 31.4-36.0 [facility] Comment on above: Performed By: #### 2 547375 #### [facility] [address] [place] [address] MCV (RBC) [Entitic vol] 90.1 fL Normal 80.0-100.0 [facility] Comment on above: Performed By: #### 2 267033 #### [facility] [address] [place] [address] Monocytes (Bld) [#/Vol] 0.4 E9/L Normal 0.2-1.0 [facility] Comment on above: Performed By: #### 2 638063 #### [facility] [address] [place] [address] Neutrophils (Bld) [#/Vol] 2.9 E9/L Normal 2.0-7.5 [facility] Comment on above: Performed By: #### 2 639493 #### [facility] [address] [place] [address] Neutrophils/100 WBC (Bld) 56.9 % Normal 36.0-75.0 [facility] Comment on above: Performed By: #### 2 903706 #### [facility] [address] [place] [address] Platelet 175.0 E9/L Normal 150.0-500.0 [facility] Comment on above: Performed By: #### 2 278124 #### [facility] [address] [place] [address] Platelet mean volume (Bld) [Entitic vol] 9.1 fL Normal 6.4-10.8 [facility] Comment on above: Performed By: #### 2 266197 #### [facility] [address] [place] [address] RBC (Bld) [#/Vol] 4.0 E12/L Low 4.3-5.9 [facility] Comment on above: Performed By: #### 2 323966 #### [facility] [address] [place] [address] WBC corrected for nucl RBC Auto (Bld) [#/Vol] 5.1 E9/L Normal 4.0-11.0 [facility] Comment on above: Performed By: #### 2 041460 #### [facility] [address] [place] [address] CHEMISTRYOrdered By: SYSTEM SYSTEM on 10-30-2024 Anion [...] 10-30-2024 eGFR 85 mL/min/1.73 m2 Normal >=59 [facility] Comment on above: Performed By: #### 1 [id number] #### [facility] [address] [place] [address] Family Medicine Office/Clini c Noteon 09-10-2024 Family [...] Daily, # 90 tab(s), Refills(s) 0, Pharmacy: [facility], 178, cm, 09/10/24 13:01:00 EDT, Height/Length [...] Daily, 1 refills fluticasone Nasal 0.05 mg/inh Emsworth, See Instructions gabapentin 300 mg Cap, 300 [...] Diabetes mellitus (more content not included)... 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 ASCVD (arteriosclerotic cardiovascular disease) (I25.10: Atherosclerotic heart disease of [place] coronary artery without angina pectoris) The patient require surgery he will require cardiac clearance Ordered: E&M of New Patient Low 30-44 Min 99608 3. Longstanding persistent atrial fibrillation (I48.11: Longstanding persistent atrial fibrillation) Should patient require or opt for a robotic repair he will need to hold his anticoagulation for 5 days prior to the procedure Ordered: E&M of New Patient Low 30-44 Min 48341 Follow-up No qualifying data available Problem List/Past [...] Oral, Daily, 1 refills Flonase 0.05 mg/inh Daniels, 1 spray(s), Nasal, BID gabapentin 300 mg [...] 08/02/2014 Recorded Normal [facility] Comment on above: Result Comment: Elec [...] mg Tab) fluticasone nasal (Flonase 0.05 mg/inh Daniels) gabapentin (gabapentin 300 mg Cap) glimepiride (glimepiride [...] EST With: Adam COHN, Kylah Cole Where: [address] [address]- Tuesday 1:00 PM EST With: Dixon Dubose PA-C Where: [facility] 2024 8:00 AM EDT With: Where: [address] [address]- Medications What How Much When Why Instructions [...] Unchanged fluticasone nasal (Flonase 0.05 mg/ inh Daniels) 1 Sprays Nasal Inhalation 2 times a [...] your care. Normal [facility] Family Medicine Office/Clini c Noteon 08-07-2024 Family [...] day(s), # 21 tab(s), Refills(s) 0, Pharmacy: [facility]/pharmacy #[id number], 178, cm, 07/31/24 14:02:00 EDT, Height/Length [...] Oral, Daily, 1 refills Flonase 0.05 mg/inh Daniels, 1 spray(s), Nasal, BID gabapentin 300 mg [...] 1 r (more content not included)... Normal [facility] Comment on above: Result Comment: [...] day(s), # 21 tab(s), Refills(s) 0, Pharmacy: [facility]/pharmacy #[id number], 178, cm, 07/31/24 14:02:00 EDT, Height/Length Dosing, 78.5, kg, 07/31/24 14:02:00 EDT, Weight Dosing tramadol, 50 mg = 1 tab(s), Oral, q4hr, PRN for pain, X 7 day(s), # 21 tab(s), Refills(s) 0, Pharmacy: [facility]/pharmacy #[id number], 178, cm, 07/31/24 14:02:00 EDT, Height/Length [...] Oral, Daily, 1 refills Flonase 0.05 mg/inh Daniels, 1 spray(s), Nasal, BID gabapentin 300 mg [...] 08/02/2014 Recorded Normal [facility] Comment on above: Result Comment: Elec [...] mg Tab) fluticasone nasal (Flonase 0.05 mg/inh Daniels) gabapentin (gabapentin 300 mg Cap) glimepiride (glimepiride [...] PM EDT With: Kylah Garcia MD Where: [address] [id number]- 2023 9:15 AM EST With: Kylah Garcia MD Where: [address] [address]- Tuesday 1:00 PM EST With: Dixon Dubose PA-C Where: [facility] 2024 8:00 AM EDT With: Where: [address] [id number]- Medications What How Much When Instructions Unchanged [...] Unchanged fluticasone nasal (Flonase 0.05 mg/ inh Daniels) 1 Sprays Nasal Inhalation 2 times a [...] your care. 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 Patient stated [place] was helping him more. Patient denies any [...] - Will do Tizanadine - Will do [place] for pain - Follow up in 1 week. - Will send to pain Ordered: [facility] External Ambulatory Referral 2. Inguinal hernia of left side without obstruction or gangrene (K40.90: Unilateral inguinal hernia, without obstruction or gangrene, not specified as recurrent) - Pt cancelled his surgery. - NO pain at this time. - Encouraged follow up Ordered: [facility] External Ambulatory Referral 3. Nonsmoker (Z78.9: Other specified health status) - Please continue to not smoke Ordered: Body Mass Index (BMI) documented 3008F Current tobacco non-user 1036F Depression Screening Negative 3352F [facility] External Ambulatory Referral Most recent diastolic blood [...] q8hr, # 90 tab(s), Refills(s) 1, Pharmacy: [facility]/pharmacy #[id number], 178, cm, 07/24/24 14:57:00 EDT, Height/Length [...] Oral, Daily, 1 refills Flonase 0.05 mg/inh Daniels, 1 spray(s), Nasal, BID gabapentin 300 mg Cap, 300 mg= 1 cap(s), Oral, Daily, 1 refills glimepiride 2 mg Tab, 2 mg= 1 tab(s), Oral, Daily, 1 refills Jantoven 5 mg oral tablet, 5 mg= 1 tab(s), Oral, Daily levothyroxine 25 mcg (0.025 mg) Tab, 25 mcg= 1 tab(s), Oral, Daily, 1 refills [place] 325 mg-5 mg oral tablet, 1 tab(s), [...] No. Househol (more content not included)... Normal [facility] Comment on above: Result Comment: [...] AM EST With: Kylah Garcia MD Where: [address] [address]- Tuesday 1:00 PM EST With: Dixon Dubose PA-C Where: [facility] 2024 8:00 AM EDT With: Where: [address] [address]- Medications What How Much When Instructions Unchanged [...] your care. Clarke [facility] Family Medicine Office/Clini c Noteon 07-03-2024 [...] 16 gram, Refill(s) 0, each nostril, [id number], 178, cm, 07/03/24 10:05:00 EDT, Height/Length Dosing, 80.8, kg, 07/03/24 10:05:00 EDT, Weight Dosing gabapentin, 300 mg = 1 cap(s), Oral, Daily, # 90 cap(s), Refills(s) 1, Pharmacy: [facility], 178, cm, 07/03/24 10:05:00 EDT, Height/Length Dosing, 80.8, kg, 07/03/24 10:05:00 EDT, Weight Dosing omeprazole, 40 mg = 1 cap(s), Oral, Daily, # 90 cap(s), Refills(s) 0, Pharmacy: [facility], 178.2, cm, 02/02/24 10:29:00 EDT, Height/Length Dosing, 84.1, kg, 02/02/24 10:29:00 EDT, Weight Dosing sildenafil, 100 mg = 1 tab(s), Oral, Daily, PRN for erectile dysfunction, 1 hour before sexual activity, # 5 tab(s), Refills(s) 0, Pharmacy: [facility], 178, cm, 07/03/24 10:05:00 EDT, Height/Length Dosing, 80.8, kg, 07/03/24 10:05:00 EDT,... 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 Normal [facility] Comment on above: Result Comment: [...] influenza virus vaccine, inactivated 08/02/2014 Recorded Normal [facility] Comment on above: Result Comment: [...] November and January and was hospitalized in [place] for 2 of those. He states that [...] with voice recognition artificial intelligence software, specifically [employer], [employer] and or [employer]. Substitutions may have occurred due to the inherent limitations of voice recognition and artificial intelligence software. Total time spent pr (more content not included)... Normal [facility] Comment on above: Result Comment: [...] BY: Kashif Barnett MD ca Dictated: 05/27/2024 [id number] Transcribed: 05/28/2024 [facility] Comment on above: Result Comment: Elec tronically Signed By: Ericka COHN, Kashif Craig\.br\Date and Time Signed: 05/29/24 13:13 EDT Coding Summary.on 05-09-2024 Coding Summary. [id number]+P GhlYWQ+DC0VXVEsX26k rGPhuV5nS4MBMQcFKzj gQVBQTElOSyIgbmFtZT 1kaXNjZXJu IC8+KQ8fLFDkSqevfAQ pm6L9eTZ9Z62poq4mIQ iemMG3YLUwZrOyxtwwc 5tnnUl3XXjlJdwuBxRq ZZJopL33KAJ8aQ37Cn1 6zAJnvRLhl8grlZd7Ff CzSUDdWHA5eOvqAXxzf 2CoYKXdQ27evDGtq9E7 IGNvbGxhcHNlOyBlbXB 2rL7kIXotsayhs3tezd bjHej7al62zRTmu4D5b QW9D5JwpqK9UUHhkFYk LvslrEVDyY4yxjeeh1q gmdfvUqOeYLCgMDt2OP t5GSPfcDvhXqPaHK71R UA1ABVmbmXiU8AjIBBe nIizPpT1s2V9Be2OG8V TUzirV0BVWDMUJAjdgV Q+LG60dk51O2OkTjroP zt1WOEkITH0lFA6hK0l JCAsMRvum2W5fJO9L3S jgoLjfb6qn3xrLQZkKM agQ14yoGPal3D7PMLnu OI6IROyiSgtAsBiwO42 Oyc+TUPheEhiu4PiLib iz7yzw6dveXj7RwpiVJ NgbuKryWisVIZ1x9MlT g3rZBKdxCD6tKZ0rA1j JqUdRcJ4OJabS313HyB piLZlGgdiO99hD6VhsD A+WFUbWby0RJBdcSanB W0eU3EmBCSprktvyCBf xRylOY0dOBUudoihVJK euQ1xNEBsB4l0DlLdGn E9WLwgJ4VqHKCwmcjxP v67pZ7wIrYyYkI5WYfe B2LckdL6QLDynXYdYZk iLWK8L75ux6G0URVhWE EjVSF8sGB8uP4gtZrrw jogbGVmdDsgdmVydGlj MWszGIthH875LNDbuKb nPkNvZGluZyBEYXRlOi AgMDYvMjYvMjAyNDwvd GQ+ZZUkJPV4mDxkPWQu tWOeHPdqPl3jtJnecXg rRI9uMXXhafjdRRBhuJ 1cVQDqeAJnwZtuUD2vR ITfuialj337HuRnFOL1 QGOreWWjF8FeeK7gNnV jNFCgFRPaH2RelTHsAL keC780EFcqGkY8RHZzk vXkB8YxAKMqcOjqCjZ9 v0V0Tq7Hv7JmdvkiT1X gnBCpGaAsJsubRLs7M0 RkPjwvdHI+FT56YIVtX L14AUp3UPR0mDerXUgf DABdY8AtkO4vSzIrJRV kZGRkOyc+PHRhYmxlIH dpZHRoPScxMDAlJyBzd XghFM5qKr4cOMEvCEJi oFwakAWpDfVei4kzNOR pHMzcJY4wfSiqD1QcrI C0OESid2n6Fv94G87tN 3JvdXA+MUNfyYZ9nNP6 rK1dCgIeGsD1RZkaF95 7GoLavBWyCcdnc5nlo7 nsvZg3AqJ0KIXklxKzl DibDPF6y9XvVj50F47x IHdpZHRoPSIxNSUiIHZ lzFaqvt0coA0eHh0+PG MrbFS6oKC3jG6sAwAhB fQ9AJbjW581NmIodNOw Uplfw7usb0wogAa3AmT wKEHsycKveRtsGVV8r7 BqLm59A9HhjEzif4JtR ws7wr71pXUca0P3eBH7 Z2NrWFVaesznpLLeiAf vZC6dFWJorrlwOVUccT 8xFJIqU5t8LlUkUkF7J VuyQ0BojpR3QOTrqZMx RCRyvXLKtB7tnzjac9q gjtzfZcHtEFRnCTi9SR x9WWVkmMszFwXiKWL8W rV1YBO6aXPtlA7sfIol wuucqB3eWbp+MGD2oZD eyLNOCM5oQgazwRB+PH WhKJL7fIupHBypABDwe A2gPPWuZ9g1ZeMnZyM5 GKmeY2AnqhZ0NPGyxSB sPBYjzJJVsG0ipwgux7 dmpmcfZzTxZVHcCPa8N Wq8UIVhqFmaPfTdPZT9 NmH5MCK8lXMkfU4ufSd kiqohaQ8tKwk+QmlydG ujSSJ5DBr2A7HwXkc5H AWmlTrnOF8cwKFfTXcp Hr5tfWwsoXetBI8aBGP rtvipq138ZbBox4yhGU GyqQDoHAghKWB4T95no 4X9TFKmXMKeFHC1dLG4 qB1rhNfivucmqRCxiBn gdmVydGljYWwtYWxpZ2 04AGWfaRswYyLsNJz8O 5LgQgm3YAQnpXdqQP8p iNGjDVvkEv8ldMwssAh lKD1lOQLkrdksm292Dz Rfb4edVDPbuTYgTDsxB CH9Y76zp8W2DEZzMCBb SIP4rYE8yF6kwGyumnj gbGVmdDsgdmVydGljYW ayHSzrU105XLOkqYwyO uNhtIb7A5InBhh1NOYb aZrrBJ3vaQUrOAkxPh2 jeNrilXmqXN3sDOCexw rjy594SgHnv7veDZWvt RSaRPxbHIT0C60de3P5 XLEeNHIvGKZ6yWI5dE0 hbGlnbjogbGVmdDsgdm MmaQsoDVbdDAdlQ785M HRvcDsnPlBhdGllbnQg UAztGXa2H2ErZnvaaJG +VM37RARjBT57iHOkgX Wmb5mofOo6DvLxVDWyS IS8iYthLNhfy0DtLNSy S22kqCGcn1Y3VBYxuDp vwZPqHqXnnYR4wD7lLO rezepgq6ewhjfbHbrkn 4wkvf19lO13C86yPEtk ZHRoPSIzMCUiIHZhbGl rqb3joI2rRe7+PGNvbC O7zUD7tK8zEVMxEeC8R AbmH161LtDkdTUlSemm s1hwg8hmrNz2DgO4ITM tjfGkcLleAZF6c7DfUg 34Z65bJZpaXQWuHZIvH MNdQPPtbKywxx8eiN3i Ii8+DXMgkQA4bEU4nZ8 tGsYdJiS8VAmpX475Yk FoiMZyIydlF12sR3Sxc XA+SSFbZgk7MEUssLqq JA6kcQYiUJqqYi0lJYQ 6NpVaUiXqGVpwM5XuZC UvyucforwpfAD9JWIqP UVzfJ90Si2fmOfcXIRc yGNFaX8tbfoym1bpsrj pBqOcOTGrRQk8NOa2FR MuwMflUfMbMTJ7SbM4W YT6eZSlbQ2ixLloivkd iT7wW4CiVUCpszpcEa6 8wJ1iVeTaKnY7LHhqTd c+UtYISpgzBl2XCDEGJ I39CM02fDAsk5T1qBC0 P6UfHLAoneancolgfKR 7FIVuNZMdaD58yLGqXJ ykVg6mv9R8h410PEWqS REjxY19Mg2myZraXDCs qFRNeR7dswxrh8yuvvc gCqOmSYRtOWa9VFi4HM PzmXcfSgTgCIF1BuO2I YL6kVCuuE1euYennxut hE2qPeu+MDYvMDkvMTk 0MjwvdGQ+NWDzSDP1sQ qiZQpdMBVhiT8pUAQjQ 6l0BwSsDcN2JVadW1Cq WVIvrzyxKi68zX4kWnF kKxG7ISomQ3KzxwP7OK PdyVFsHQemIPX5V64rd 0Z2MHRfTDRyLFE7yBE3 wJ0odVwnknpetJTnxQg gdmVydGljYWwtYWxpZ2 46IHRvcDsnPjgyIFllY JCgDN74KG26oPOhi2H6 eUZ7E1BnOAQachymtnb feNT0ZNYmKVNedH04iB FmXXemNn9lw9F1p487B JIfUENahE78Xh5sqSnc XXLwkTQYlY8wryacq9q mxrluIvDeFCEqUYr9MW m1GDRddDbhGvQnZEH1C yR9FLW1nFAndL4ezTpe txnkxD4aDxp+TWFsZTw vdGQ+IRIbDIK0cAzvMB laSQQpiQ4lPRDeZ6u4J cRgGkV0BAwiL0IuNFGa llxpDe14uA5oMqFrMkR 2ILaiW3OvwmP0ONHjaA QwXMwlYHH8I01ik3F2R ZSnJSEuQAK4jND3qZ7f bGlnbjogbGVmdDsgdmV dsEqpRGkaERdiV643VM PoaUfaOb47sMNkqVztn mF6O5SrOsinwLA+PC90 AONkJJ79xXMagCBik5c bzSr3OeLmLUQiOVP0zW lbJWzrq8PjGDRcQ38jb VCjf1L3OTRvtXvtzGPa GoMwpSB8cK8jUFbzhjl mw3lauojoRmbmu2znss 76eO94I45zTCojMVXqS BYaRWTpXERdgEpttc4v yD7wAm0+JSIxoPQ4wZY 3rU3hAbZmUfT6QBlrN7 42CdRosSWmAazxx9nbb 5nsrHq6LmMjJMItpiMv lTofDUU7c8JkHz13L11 sIHdpZHRoPSIyMCUiIH EziFdmvl5vtI3xPl7+P A3ln1grfn31fW55qYG+ CXKgKYA0bPngWImwPIO pwA4pKRsdUsI7NWLhDt ZhdK05nOStFEvgSw2ap KgjcXfjTC9mDQZmudhp z489ZrIzm0upLKWvdQZ gEGrzHAF6N85us1W9KZ VoGUHwXOI3mYU9xH4if GlnbjogbGVmdDsgdmVy oUlvOXytZYqoJ201HUL bdLacQxWezOKaS9tjxr WMOS4vZahuoCN+PHRkI ZT7kKnrDTsdIVJboU6v HQHhZ3k2QoLkIaJ5IOv oA0QjrsK4XMMatWNbSF YnkNTKtS4qvamqp8xju ebpZfRgOJVaCZl1YIq0 QVObsQxuNxPsXZX3IuD 2DHF3oVCpdT7xzCuxyu ijzA9zRhp+RklOOjwvd GQ+JWMvQKR7yShfAFby WSUwrP5hBZXiP7l8CgN lIbH6QUlhN6IdenH6EC MpsMEzVRFbhCNGbC4qg inbd6qszfcpFsWuBKFh MFw0ZUv7TYVygZbzXaH oSTK5PvD8UDN4hPUnfT 2npDaqilcfoX1jHwa+T VJOOjwvdGQ+PHRkIHN0 vOemHRymHRYnxQ1oBIX fN3p1BkRpPwM7JIpcB9 KfniI8ZKEhvCHiOEDkf BUNjF5qtgpzn1vqpmsm YbFyNQStAEa6MNf7JYA fkVcsIfKpIJU3DrI5MZ X4aCGmkS1stYglhgqwz G9wOyc+SMI2RLA9TM02 NB18C0LhClbzvZLsdQO +PHRhYmxlIHdpZHRoPS zzOXIgFiIgkWquYQ6vS y9nCRPsFIHfqPsjdONz AxAlb5sjARByK (more content not included)... Normal [facility] Coding Summary.on 05-08-2024 Coding Summary. TQKZGamj86XYt9zCx+P GhlYWQ+SF1VWAVfX31e oZMnmP1bG9UUBAkIWpk gQVBQTElOSyIgbmFtZT 1kaXNjZXJu IC8+WP9jUNNtVmwjjZL ev4B4aCO9S63swr6iEQ oznBG5SPHhTlIdwdere 4tjgOb7AJqoZutwTkRr WCVkeK04VXM1mX94Oa3 4xWMqaLFhb1kwwDk6Ym LaWEYnXWI1wPutMExsd 8DxIFAtY16ixWRda6G1 IGNvbGxhcHNlOyBlbXB 2fR8yNYuczaqjz7guxl sqXzm1xr90hNYjx9Q5y TI9H6JhxhY5WNNgfSOq GtfcxNUUeK7gxogcu7j rsmgrLyGfEKJcZBf4JA l1QDVpdAprUjShIT75E EW1ZRUdruEoT7MqYHBm jKkeAiQ3w2M9Oo7XN2Z DUmppA2AOPHDJCLiftI Q+LH29ui14A5TkCupbV oh2BBVcRDH5bGQ7dR0j AVYqRAepn6U8tRF6A6W xdqCfdp0yo3pdAJNbDX ynF32cvNIao0V8LJBtw EP5OZQgaIzrJfIegG01 Oyc+PMIhgUqnn8DrMsb bl1wex8dkdVp1HikySR JyfdWwgYapIVF7q7TfL i7hNTSxpBJ0vJB9cM0n TqOyKcK7SQobJ741LtV gaLIjKlomI14xQ4BipM A+HIDfGpi4XIAreOeoR X4fZ1PqTDWmaeqhyEEo pFeyUZ2jRUTrlhrsWGD noS6xZLKkH9x4EtQmVl E4PGruI6BdAAHhjekfG o98aO8sHkQkLmO2LHku E0CxqaS4DSOqyTKrFTu nFSW2X05sw5Z5DVBrOJ IgBCJ2cUY6hS0uhVyef jogbGVmdDsgdmVydGlj SVtpZYchD493PFIfqVm nPkNvZGluZyBEYXRlOi AgMDYvMjUvMjAyNDwvd GQ+IZIdOAB0fWlzNSEa cAKjYShhTp4duFnkcWk fGY0tBGZarsktJGGxyX 0cJWJxuCZkfMeuJW7gC IFnhhevn096MeLfEMB3 SEFntZClK3NlnB4eLxV fFJMjVPXoF8LoqWNtDQ isW994ZFzhSxC8ICLfv mTvJ8KbYEFceOcwIrR9 z8I0Rx6Bh8XnbfchL8D slZUsHrDyIzlvCZl6V9 RkPjwvdHI+DP15UHOsT D75TOd9NKL3oYqlPBax TLPzL2CgwF7gUxGdRQO kZGRkOyc+PHRhYmxlIH dpZHRoPScxMDAlJyBzd MbqXZ2uRz2xGEOuKETd bItflNLrCfEpu4xnNYG xFLhaCY5ddYjiK4AmsF G5UXMxv3w2Zl66Y50bD 3JvdXA+QYEisOF4fKW1 jR6oRfKnWfI4IKtgI11 6UhSfnFZiYwfbp1wjp9 cgwSs9KoH0ALKxiaCxy QivWQH5x9BbYc46O24w IHdpZHRoPSIxNSUiIHZ nxSkvdr7gsG8uKn7+PG WwaJJ8kCS8dC0aOjEqB iE3AUtoG855CiQkdCRl Vugcn0iyy6qhxYs1YbP tJFKwdwMheHdnXQW2g1 EhVu55J5TgeFaoa7QwP zd3xe32hCJyo6H3wLJ8 Z5SjAQNeltmcuVBpiLp kLC8hCDMhtccqKIMxcQ 4rLKFoR5u6SmTtBqW9N LedO6FfwlV2WCRvkKTg TYQeoVAXuO8mcycxi0w fxlycHpMqZVTuWFl8NN w3SXMjuDthMdUgWLG2Y hM9HYI2hPMonD2vqHfx dqcpjV4yCgf+NJR2yAH kwTQYDC7uJnthoNA+PH FrZCX0cUcfNLcvFXWzg G9wMWKtJ1w7EqMqShY5 NAqxQ1TtmoH8HKAteFN uMWEdeHIJoZ1pozpqa8 auwhmjSwMyBMMoTUw1M Ze8TBFfjAdkJlYyNYQ4 BeP6QDA0qFPidC3djHu ojgfwgK0xImt+QmlydG ddRYM5SSx6V9UmCiq1G HSonKjlJB4mvBRnKOrh Ci1shPgujRasGV8kTKT mrlxgw568RfVpx7qoEM QmvAMqRAifCIM0R15jo 9K2FNOiNXBwOLS7xGP3 hF0hwIkkhthwfGEcuBn gdmVydGljYWwtYWxpZ2 14COYfqSorKlQdSSr7N 3GnBvg4VAXoxDwgNF3c jETrRJemLv3ejBxbxKm fUX0dJIMaywnrg566Oz Tbg6nqIWAqnIWxTRtxE AY2A06jb3T4EXJgQNTl GEO0yMB0yO8jxLsnrkh gbGVmdDsgdmVydGljYW cuSOxvH396CRAsjKwiO cYvyKo9O4SbIwm8WQCs nPtjHP9noZBcGPuaZo2 bbKjrqEazUH6pDIPevw wme260YlGuy9whXRMpk GWlMYmmQIK9L21uj8R0 HVQhJVDhDCM5dKT8yA4 hbGlnbjogbGVmdDsgdm QcmYxlBRwoQGzqD628W HRvcDsnPlBhdGllbnQg PAsjJAr5H7NyAfjpdPB +IU93YNHyPT51fHPlsN Yyw3ymnDr0PiMqFMLtW AU2hVctKKwnq6FlZDNl L18fgOAwa1C5OGXthUc wmZKiHgGuuIL3sP0tDI icmgwxx1abdmieCywal 3vuvu97uW23C38jJFzy ZHRoPSIzMCUiIHZhbGl xgi0wtW4fOr1+PGNvbC C3fTR4jN8cXGHhPtD6Y PqzL567HiHsxXVpNejb e3mmn2rbsOx3EiF4BPZ jzgUkxVzsIIR9c6WeGb 03S50rMUavFTGbDUBvG XNkWRYevPanwm4ngN3k Ii8+HPKwuLT7uND9sX4 qYtKzUlE7IGxiX830Pu RdmWUoKmmeT33iA2Yfr XA+MPBsRuv6FPTpuSwp GE4rlFDnBKerLb2oMQN 3FsFqWvVtJVsrC1BkMX XlosbsxrqftPU5RJRlK CQpqG24Fg2bfZfpXLNe dTBTkB1hvaodt3nxhaz vLjNqXFNjQOv8OPv5DS CcjGumElJmDED1XtE0C PC6tWTjpW6dbVvvcjfb dN9wM2DzSSJobywxPj7 6yE6jMgRlJtW5PMfzHh c+HkANQyfnTv7YUUOXZ X18VU90zALbe8G8nAI1 Z1JwBECqlhrsxhpfuTY 7CZTmSETfaC12vUUvQP xkYw7oy8V3y905BWSmO FDmkK49Hf4hkUrsKANk hYQPdP5nyfipn2uzfbm eFkEeNXFrHUn7DMm1JO TxqYiwOeLoXWM7DrH0M LD8sQSdzV5wfFxmxyui aM3dPti+MDYvMDkvMTk 0MjwvdGQ+GCFjIYY5wY mcNBnuNKObnQ6jYBNqS 1q7JnFtWeN1IUylB8Sn LOYveywjOx28sL6mXpE oIhS1NPauF9MpyrY1FD ZlgATgERavHXI5J65vv 4D2PFRzNKEoQTB0rRB6 yA4bkBggeksjlBHprNx gdmVydGljYWwtYWxpZ2 46IHRvcDsnPjgyIFllY FEuMO18DJ96wUMjz7W5 cIX4A7MvKJVdxyrhfcb bsRW3KIGxBMPebA02mY FiCSblPb7xq9Z9z813U FPwCTUjpY21Zm2hcAce ABCbtEQSyA8nhrmio7a atylhEiVwPJNmJSo7XU w7JUZsbZzgVqZhYCJ8D yE7GNL5aWRigV3rqShh afphzJ8jKso+TWFsZTw vdGQ+GXVcDMM7jTdoEM hoVWPwbL7dUJQwT6j6X yRqRoJ5FGapW8VxBIKz hvzdWd43oX6lSaAsEsG 1TUejR7VlitE5UTFapB WmYWwhLHL0Q60cb5T0P ZVcRQJxLTX2vOK1eH4a bGlnbjogbGVmdDsgdmV taEqvTSsoEUitM611US GzpHgyZcgjVjFHqg2iO L0rAvlgxZL+LK02ae33 Z7JfRljoDrn8QQNgYPR 9gPV4iY5pDRRfMEfem9 S1tSE0H2VszbFedv3by 1dsHJLzHFsrM40geYOf l4Z6TBNayGW1ZLIazSt jKnNfxH51Lyk+PGNvbG ife0MaXckxm0eze1pwn Dd2RlFoWLBstpAmiZvp NYT7x6UzKs36Z70sZZd pZHRoPSIzMCUiIHZhbG jqkg7eoD1aYn9+PGNvb XO6iZN7uE9eBwPwNdT1 XWkvT127TjHkeZReQhq fy6bty7wkmRs4UhKsVY IvosLxfCjpZZB7o1VrY h87S3MtbYdvj7ByXsa6 jb34sIDai4Z6vEP0W6O hZGRpbmctbGVmdDogMC 6zVPKajpnqBHFlgA8oZ CBsH0i9ZkOjXwB3GBsa Y7WxhkH7ZTBhfZEeVQJ zsMWZlL8ivfpwb2jvqw hhWsVpAQAdWOt7MYr2R PViaFssHyNcKOS0QsE7 XUP2pARknO8fyYfubga vaH2bIzx+ESs9n1sowK CxKA8fkUF3MD27DP02e WYkt5T6bIG2U0XzRWGd sxbzmrzpiFV1KCXpXRO tcY75Xf5fiVwzYj0iXO UjMVL3CSPdhMWyA8Vpx W5zJqExPLCwSOCpD8Ik lCViWIqnE324ZDrmBjF 4HINjfdNeJ4AkVUYccL ovNkQ0o1R8Or5GLL13U R18JM92tUVrr4N8eDN6 E8KaFMZxmqvqnleeaWC 7OSBrGELikR10Qy8jrB zfRx1zWKHkJMB5FCQez ZOkK5GbiK6zXcJgAYEp YPJeJ5OzfQUxXXeaH31 4RIqxCdZ4WJMhghOaT2 RfSOBcaLglHsF2s4B8D k4UIw41IU64JY30zTBk w1N1lLU5M1LsOYTciiv crcnvcNK4FEDlALAjxD 66Fp9sxDdiOf3pSLCiO OL8ZQRwlIXsJ6PglJ7b MbRqVXAyHDVaJ2IogHX eTTvpY968PPbhPpM0WJ MjzqDnB2MkKEUgnCdkE lK5x6G7Iy7IWSqrqti8 R1JaJgieiAJ+SA59GQN dFO18iXExfHRyi1lrsT t6TaBmIJAiKXJ3dDggM Hzoh9MbNEKlL46nbHNf x5Z8SLHijYyvq (more content not included)... Normal [facility] Consultation Noteon 05-07-20 Consultation Note [id number] D#1.00TIFF Normal [facility] Ambulatory Visit Summaryon 0 05-03-2024 Ambulatory Visit Summary DARIEL ZABALA :1940 Visit Date:05/03/2024 Ambulatory Visit Instructions Your Diagnosis Annual visit for general adult medical examination with abnormal findings Afib Longstanding persistent atrial fibrillation DM type 2 causing vascular disease Hyperlipidemia ASCVD (arteriosclerotic cardiovascular disease) Frequent falls Your Care Team Attending Physician - Kylah Garcia MD Primary Care Physician - Kyalh Garcai MD This Is Your Medications List Turmeric [...] Ericka COHN, Kashif Craig Where: [facility] 2023 9:15 AM EST With: Adam COHN, Kylah Cole Where: [facility] Normal [address] [place] [address]- \.br\ Medications\.br\ What How Much When Instructions\.br\ [...] to adjust your dosage.\.br\ ? \.br\ Take saur-kbb-kbtzkzu and prescription medicines only as told by [...] Exercise regularly, as told by your heal [facility] Ambulatory Visit Summary DARIEL ZABALA :1940 Visit [...] AM EST With: Kylah Garcia MD Where: [facility] Normal [address] [place] [phone]- \.br\ Medications\.br\ What How Much When Instructions\.br\ [...] of cylinders, a pump, and a reservoir. [facility] Family Medicine Office/Clini c Noteon 05-03-2024 Family [...] 08:24:28 EDT Procedure Dt/Tm: 03/26/2024 ; Location: [facility] ; Anesthesia Minutes: 0 ; [...] Depression Screening (more content not included)... Normal [facility] Comment on above: Result Comment: [...] is seeing cardiology and did not tell clinical assistant or myself that he had been [...] Daily, # 90 tab(s), Refills(s) 0, Pharmacy: [facility], 178.2, cm, 02/02/24 10:29:00 EDT, Height/Length Dosing, 84.1, kg, 02/02/24 10:29:00 EDT, Weight Dosing sodium chloride, See Instructions, TAKE 1 TABLET BY MOUTH TWICE DAY, # 90 tab(s), Refills(s) 2, Pharmacy: [facility]/pharmacy #[id number], 180.5, cm, 03/20/24 15:05:00 EDT, [...] Abuse, 03/06 (more content not included)... Normal [facility] Comment on above: Result Comment: [...] night-lights. ? Place frequently used items in vpsn-ip-epwhn places. Lower the shelves around your home [...] the way. ? Do not use floor greenlandic or wax that makes floors slippery. If [...] include working with a physical therapist or marine mammal trainer to improve your strength, balance, and endurance. Where to find more information ? Centers for Disease Control and Prevention, [place]: www.cdc.gov ? National [place] on Aging: www.kieran.nih.gov Contact a health care [...] health ca (more content not included)... Normal [facility] Patient Education Urology Erectile Dysfunction [...] these instructions at home: Medicines ? Take pddk-ydk-nqdohac and prescription medicines only as told by [...] include cig (more content not included)... Normal [facility] Screenson 05-03-2024 Screens [id number] 2#1.00TIFF Normal [facility] CBC w/ Auto Diffon 4 Basophils/100 WBC (Bld) 0.9 % Normal 0.0-2.0 [facility] Comment on above: Performed By: #### 2 [id number] #### [facility] Laboratory [address] [place] [address] Basophils/Leukocytes Auto (Bld) [Pure # fraction] 0.0 E9/L Normal 0.0-0.2 [facility] Comment on above: Performed By: #### 2 [id number] #### [facility] [address] [place] [address] Eosinophils (Bld) [#/Vol] 0.1 E9/L Normal 0.0-0.5 [facility] Comment on above: Performed By: #### 2 603573 #### [facility] [address] [place] [address] Eosinophils/100 WBC (Bld) 2.4 % Normal 0.0-8.0 [facility] Comment on above: Performed By: #### 2 074973 #### [facility] [address] [place] [address] Erythrocyte distribution width (RBC) [Ratio] 14.4 % High 10.9-14.2 [facility] Comment on above: Performed By: #### 2 592158 #### [facility] [address] [place] [address] Hematocrit (Bld) [Volume fraction] 42.2 % Normal 37.7-49.0 [facility] Comment on above: Performed By: #### 2 369250 #### [facility] [address] [place] [address] Hemoglobin (Bld) [Mass/Vol] 14.0 g/dL Normal 13.5-17.5 [facility] Comment on above: Performed By: #### 2 432836 #### [facility] [address] [place] [address] Lymphocytes (Bld) [#/Vol] 1.4 E9/L Normal 1.0-4.0 [facility] Comment on above: Performed By: #### 2 077679 #### [facility] [address] [place] [address] Lymphocytes/100 WBC (Bld) 34.0 % Normal 14.0-50.0 [facility] Comment on above: Performed By: #### 2 150652 #### [facility] [address] [place] [address] MCH (RBC) [Entitic mass] 30.8 pg Normal 27.0-34.0 [facility] Comment on above: Performed By: #### 2 806999 #### [facility] [address] [place] [address] MCHC (RBC) [Mass/Vol] 33.1 g/dL Normal 31.4-36.0 [facility] Comment on above: Performed By: #### 2 822535 #### [facility] [address] [place] [address] MCV (RBC) [Entitic vol] 92.9 fL Normal 80.0-100.0 [facility] Comment on above: Performed By: #### 2 515585 #### [facility] [address] [place] [address] Monocytes (Bld) [#/Vol] 0.4 E9/L Normal 0.2-1.0 [facility] Comment on above: Performed By: #### 2 276821 #### [facility] [address] [place] [address] Neutrophils (Bld) [#/Vol] 2.2 E9/L Normal 2.0-7.5 [facility] Comment on above: Performed By: #### 2 924224 #### [facility] [address] [place] [address] Neutrophils/100 WBC (Bld) 53.4 % Normal 36.0-75.0 [facility] Comment on above: Performed By: #### 2 210400 #### [facility] [address] [place] [address] Platelet 166.0 E9/L Normal 150.0-500.0 [facility] Comment on above: Performed By: #### 2 104335 #### [facility] [address] [place] [address] Platelet mean volume (Bld) [Entitic vol] 9.8 fL Normal 6.4-10.8 [facility] Comment on above: Performed By: #### 2 287007 #### [facility] [address] [place] [address] RBC (Bld) [#/Vol] 4.5 E12/L Normal 4.3-5.9 [facility] Comment on above: Performed By: #### 2 847079 #### [facility] [address] [place] [address] WBC corrected for nucl RBC Auto (Bld) [#/Vol] 4.2 E9/L Normal 4.0-11.0 [facility] Comment on above: Performed By: #### 2 536835 #### [facility] [address] [place] [address] CHEMISTRYOrdered By: SYSTEM SYSTEM on 05-01-2024 Albumin [...] used for this result was chemiluminescence using [employer]'s Access Hybritech PSA reagent. Protein [Mass/Vol] 7.1 [...] 05-01-2024 Albumin [Mass/Vol] 4.2 g/dL Normal 3.3-5.0 [facility] Comment on above: Performed By: #### 2 244436 #### [facility] [address] [place] [address] Albumin/Globulin (S) [Mass conc ratio] 1.4 Normal 1.1-2.2 [facility] Comment on above: Performed By: #### 2 [id number] #### [facility] [address] [place] [address] ALP [Catalytic activity/Vol] 83 Int._Unit/L Normal 21-98 [facility] Comment on above: Performed By: #### 2 272357 #### [facility] [address] [place] [address] ALT No additional P-5'-P [Catalytic activity/Vol] 14 Int._Unit/L Normal 6-46 [facility] Comment on above: Performed By: #### 2 700961 #### [facility] [address] [place] [address] Anion gap [Moles/Vol] 10 mmol/L Normal 6-16 [facility] Comment on above: Performed By: #### 2 746632 #### [facility] [address] [place] [address] AST [Catalytic activity/Vol] 22 Int._Unit/L Normal 5-43 [facility] Comment on above: Performed By: #### 2 840997 #### [facility] [address] [place] [address] Bilirubin [Mass/Vol] 0.9 mg/dL Normal 0.0-1.1 [facility] Comment on above: Performed By: #### 2 839204 #### [facility] [address] [place] [address] Calcium [Mass/Vol] 9.5 mg/dL Normal 8.9-11.1 [facility] Comment on above: Performed By: #### 2 547855 #### [facility] [address] [place] [address] Chloride [Moles/Vol] 103 mmol/L Normal 101-111 [facility] Comment on above: Performed By: #### 2 431208 #### [facility] [address] [place] [address] CO2 [Moles/Vol] 29 mmol/L Normal 21-31 [facility] Comment on above: Performed By: #### 2 165401 #### [facility] [address] [place] [address] Creatinine [Mass/Vol] 1.1 mg/dL Normal 0.5-1.3 [facility] Comment on above: Performed By: #### 2 262020 #### [facility] [address] [place] [address] Globulin (S) [Mass/Vol] 2.9 g/dL Normal 1.4-4.0 [facility] Comment on above: Performed By: #### 2 798803 #### [facility] [address] [place] [address] Glucose [Mass/Vol] 104 mg/dL Normal 55-199 [facility] Comment on above: Performed By: #### 2 254567 #### [facility] [address] [place] [address] Potassium [Moles/Vol] 5.2 mmol/L Normal 3.5-5.3 [facility] Comment on above: Performed By: #### 2 752241 #### [facility] [address] [place] [address] Protein [Mass/Vol] 7.1 g/dL Normal 6.0-7.8 [facility] Comment on above: Performed By: #### 2 547117 #### [facility] [address] [place] [address] Sodium [Moles/Vol] 137 mmol/L Normal 135-145 [facility] Comment on above: Performed By: #### 2 630919 #### [facility] [address] [place] [address] Urea nitrogen [Mass/Vol] 15 mg/dL Normal 5-21 [facility] Comment on above: Performed By: #### 2 904638 #### [facility] [address] [place] [address] Urea nitrogen/Creatinine [Mass ratio] 14 No Units Normal 10-20 [facility] Comment on above: Performed By: #### 2 360416 #### [facility] [address] [place] [address] Consent for Treatmenton 04-14 Consent for Treatment [id number] 72#1.00TIFF Normal [facility] HEMATOLOGYOrdered By: SYSTEM SYSTEM on [...] Remisol Heme Lab Reportson 05-01-2024 Lab Reports [id number] E#1.00TIFF Normal [facility] Lipid Panelon 05-01-2024 Cholesterol [Mass/Vol] 168 mg/dL Normal 120-200 [facility] Comment on above: Performed By: #### 2 823174 #### [facility] Laboratory [address] [place] [address] Cholesterol in HDL [Mass/Vol] 54 mg/dL Invalid Interpretation Code [facility] Comment on above: Result Comment: '>= 60 LOW RISK' '<= 40 HIGH RISK' Performed By: #### 2 483544 #### [facility] [address] [place] [address] Cholesterol in LDL [Mass/Vol] 99 mg/dL Normal <=129 [facility] Comment on above: Performed By: #### 2 628151 #### [facility] [address] [place] [address] Cholesterol in VLDL [Mass/Vol] 16 mg/dL Normal 7-40 [facility] Comment on above: Performed By: #### 2 306878 #### [facility] [address] [place] [address] Triglyceride [Mass/Vol] 78 mg/dL Normal <=149 [facility] Comment on above: Performed By: #### 2 847799 #### [facility] [address] [place] [address] Nurse Consultation Noteon Nurse Consultation Note Reason [...] influenza virus vaccine, inactivated 08/02/2014 Recorded Normal [facility] PSA Screen, Totalon 05-01-20 24 Prostate specific Ag [Mass/Vol] 1.3 ng/mL Normal 0.1-3.5 [facility] Comment on above: Result Comment: The concentration of PSA determined by different manufacturers can vary due to differences in assay methods and reagent specificity. Values obtained from different assay methods cannot be used interchangeably. The methodology used for this result was chemiluminescence using [employer]'s Access Hybritech PSA reagent. Performed By: #### 1 [id number] #### [facility] [address] [place] [address] eGFRon 05-01-2024 eGFR 67 mL/min/1.73 m2 Normal >=59 [facility] Comment on above: Order Comment: Order added by Discern Expert. Performed By: #### 1 [id number] ####[facility] [address] [place] [address] Physician Orderon 04-23-2024 Physician Order [id number] 859#1.00TIFF Normal [facility] Consent for Treatmenton Consent for Treatment [id number] #1.00TIFF Normal [facility] Heart and Vascular Office/Cl inic [...] or orthopnea. 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 with clinical assistant, location unknown, however, has not been [...] influenza virus vaccine, inactivated 08/02/2014 Recorded Normal [facility] Comment on above: Result Comment: Elec tronically Signed By: Ericka COHN, Kashif Craig\.br\Date and Time Signed: 04/20/24 13:49 EDT Insurance Correspondenceon 0 04-20-2024 Insurance Correspondence [id number] 559#1.00TIFF [facility] Consultation Noteon 04-10-20 Consultation Note [id number] 1#1.00TIFF [facility] Postoperative Documentson Postoperative Documents [id number] 811#1.00TIFF [facility] Consultation Noteon 03-29-20 Consultation Note [id number] B4#1.00TIFF [facility] Lab Reportson 03-29-2024 Lab Reports [id number] DF#1.00TIFF [facility] RAD - MISCon 03-29-2024 RAD - MISC [id number] 19#1.00TIFF [facility] IntraOperative Documentson 0 03-28-2024 IntraOperative Documents [id number] 516#1.00TIFF [facility] Consent for Anesthesiaon Consent for Anesthesia [id number] 28#1.00TIFF Normal [facility] Discharge Instructionson Discharge Instructions [id number] 47#1.00TIFF Normal [facility] IntraOperative Documentson 0 03-27-2024 IntraOperative Documents [id number] 36#1.00TIFF Normal [facility] Main OR Intraoperative Recor don 03-27-2024 Main OR Intraoperative Record IntraOp Document Type FT Summary Primary Physician: Axel Hernández DO Finalized Date/Time: 03/27/24 09:11:12 Pt. Name: DARIEL ZABALA/Sex: 1940 Male Med Rec #: [id number] Physician: Axel Hernández DO Financial #: [id number] Pt. Type: A Room/Bed: [facility] [...] T Role Performed Anesthesiologist Surgeon - Primary Signal Constructor - Primary Substation Technician Time In 03/26/24 12:20:00 03/26/24 12:20:00 03/26/24 [...] A Krupp RN, Rich Nickerson Role Performed ASPARAGUS BUNCHER/SA Scrub - Primary Staff - Other Time [...] and tissue Entry 1 Skin Integrity Intact, [place], Warm, and Skin Abnormality No Dry Outcomes Met? Yes Last Modified By: Ambrocio Borges 03/26/24 12:36:42 Post-Care Text: The patient is free from signs and symptoms of injury caused by extraneous objects Patient Positioning FT Pre-Care Text: Identifies physical alterations that require additional precautions for procedure-specific positioning, verifies presence of prosthetics or correctiv (more content not included)... Normal [facility] Operative Reporton Operative Report SURGERY DATE: 03/26/2024 WRITER EDITOR: Chica Jolley C.F.A. PREOPERATIVE DIAGNOSIS: Right little [...] patient's condition satisfactory Deanna Weller Dictated: 03/26/2024 [id number] Transcribed: 03/26/2024 cc:Kylah Garcia M.D. Normal [facility] Comment on above: Result Comment: Elec tronically Signed By: Axel Hernández DO.br\Date and Time Signed: 03/27/24 07:40 EDT Preoperative Documentson Preoperative Documents [id number] 14#1.00TIFF Normal [facility] Progress Note-Physicianon Progress Note-Physician Patient: [...] 2 causing vascular disease / SNOMED CT 793556244 / Confirmed Trigger finger / SNOMED CT 148723652 / Confirmed Syncope / SNOMED CT 767761662 / Confirmed Body mass index (BMI) of 25.0-25.9 in adult / SNOMED CT 1373355358 / Confirmed Osteoarthritis / SNOMED CT 7854643477 / Confirmed Encounter for surveillance of abnormal nevi / SNOMED CT 7695238818 / Confirmed Laceration of head / SNOMED CT 9291761513 / Confirmed Hyponatremia / SNOMED CT 885036003 / Confirmed Hyperlipidemia / SNOMED CT 20314538 / Confirmed Fall at home / SNOMED CT 29567238 / Confirmed ED (erectile dysfunction) / SNOMED CT 2192457598 / Confirmed Carpal tunnel syndrome, left / SNOMED CT 91821007 / Confirmed Afib / SNOMED CT 69915369 / Confirmed ASCVD (arteriosclerotic cardiovascular disease) / SNOMED CT 693711564 / Confirmed Histories Procedure history: Surgery, neck X 2 ([id number]). Carpal tunnel release (856303403). Social History Social & Psychosocial Habits Alcohol [...] adequate air exchange. Cardiovascular: Regular rhythm. Plan [place] [employer] Anesthesiologists (ASA) physical status classification: Class III. Anesthetic Preoperative Plan: Anesthesia General. [facility] Comment on above: Result Comment: Elec tronically [...] meets criteria ( To home ). Normal [facility] Comment on above: Result Comment: Elec tronically Signed By: Chau Cardona Jr, DO\.claudio\Date and Time Signed: 03/27/24 12:32 EDT CHEMISTRYOrdered By: Sara ROP User on 03-26-2024 Glucose [Mass/Vol] 92 mg/dL Normal 55 - 99 mg/dL [facility] C POC Subsection Comment on above: Result Comment: Justine garcia RN/ POC Device SN [id number] 1 Invalid Interpretation Code [facility] POC Subsection POC User ID [id number] 1 Invalid Interpretation Code [facility] POC Subsection POC Username LORNA WILSON Invalid Interpretation Code [facility] POC Subsection COAGULATIONOrdered By: Toshia Tadeo on 03-26-2024 aPTT Coag (PPP) [Time] 35.8 s Normal 25.1 - 36.5 second(s) [facility] Auto Coag Comment on above: Interpretive Data: [...] the same coagulation reagent and instrumentation as [facility]. Currently there are no coagulation studies available worldwide for children to 14 days, and no normal ranges. Heparin therapeutic range (represented by Anti-Factor Xa activity of 0.2 - 0.4 U/mL) corresponds to PTT of 56.6 - 109.0 sec. PT Coag (PPP) [Time] 13.4 s High 9.4 - 1 2.5 second(s) [facility] Auto Coag Comment on above: Interpretive Data: [...] the same coagulation reagent and instrumentation as [facility]. Currently there are no coagulation studies available worldwide for children to 14 days, and no normal ranges. Capillary Glucose POCon 03-14 Glucose [Mass/Vol] 92 mg/dL Normal 55-99 [facility] Comment on above: Result Comment: Justine garcia RN/ Performed By: #### 2 [id number] #### [facility] [address] [place] [address] Consent for Procedure/Surger yon 03-26-2024 Consent for Procedure/Surgery [id number] 421#1.00TIFF Normal [facility] Consent for Treatmenton 03-14 Consent for Treatment [id number] E9#1.00TIFF Normal [facility] Discharge Instructionson Discharge Instructions DARIEL ZABALA :1940 Visit Date:03/26/2024 Inpatient Discharge Instructions Your Care Team Admitting Physician - Axel Hernández DO Referring Physician - Axel Hernández DO Reason for Your Visit RIGHT LITTLE FINGER TRIGGER FINGER Your Diagnosis Trigger finger, right little finger This Is Your Medications List Turmeric (Turmeric 500 mg oral capsule) acetaminophen-hydro codone ([place] 325 mg-5 mg oral tablet) atenolol (atenolol [...] AM EDT Comments: Keep scheduled appointment Where: [address] [place] [address]- [employer] (1) Medications What How Much When Why Instructions Next Dose Unchanged acetaminophen-hydro codone ([place] 325 mg-5 mg oral tablet) See instructions Trigger finger, right little finger 1 tab(s) Oral q4hr PRN Pain. Duration 7 days. Pickup at [facility]/pharmacy #[id number] Unchanged atenolol (atenolol 25 mg Tab) 1 [...] Tablets By Mouth Every day Pharmacy Information [facility]/pharmacy #[id number]: [address] [place], [place] [id number] [phone] Problems Ongoing - Any problem that you [...] and med (more content not included)... Normal [facility] Comment on above: Result Comment: Elec tronically Signed By: Sloan KHAN, Rudy Pereira\.br\Date and Time Signed: 03/26/24 14:03 EDT H&P Updateon 03-26-2024 H&P Update [id number] 633#1.00TIFF Normal [facility] Main OR PACU I Recordon 03-14 Main OR PACU I Record PACU Phase I Document Type FT Summary Primary Physician: Axel Hernández DO Finalized Date/Time: 03/26/24 13:38:42 Pt. Name: DARIEL AZBALA/Sex: 1940 Male Med Rec #: [id number] Physician: Axel Hernández DO Financial #: [id number] Pt. Type: A Room/Bed: [facility] [...] By: Vicki Sethi RN 03/26/24 13:38 Normal [facility] Main OR PACU II Recordon Main OR PACU II Record PACU Phase II Document Type FT Summary Primary Physician: Axel Hernández DO Finalized Date/Time: 03/26/24 16:11:30 Pt. Name: DARIEL ZABALA/Sex: 1940 Male Med Rec #: [id number] Physician: Axel Hernández DO Financial #: [id number] Pt. Type: A Room/Bed: [place] [address] Admit/Disch: 03/26/24 09:11:44 - 03/26/24 14:30:00 Institution: [...] By: Rudy Lisa RN 03/26/24 16:11 Normal [facility] Main OR Preoperative Recordo n 03-26-2024 Main OR Preoperative Record PreOp Document Type FT Summary Primary Physician: Axel Hernández DO Finalized Date/Time: 03/26/24 13:07:41 Pt. Name: DARIEL ZABALA/Sex: 1940 Male Med Rec #: [id number] Physician: Axel Hernández DO Financial #: [id number] Pt. Type: A Room/Bed: Admit/Disch: 03/26/24 09:11:44 [...] 03/26/24 13:05 Ambrocio Borges 03/26/24 13:07 Normal [facility] Monitor Recordon 03-26-2024 Monitor Record [id number] 220#1.00TIFF Normal [facility] Monitor Record [id number] 270#1.00TIFF Normal [facility] PT & PTTon 03-26-2024 aPTT Coag (PPP) [Time] 35.8 second(s) Normal 25.1-36.5 [facility] Comment on above: Result Comment: [...] the same coagulation reagent and instrumentation as [facility]. Currently there are no coagulation studies available worldwide for children to 14 days, and no normal ranges. Heparin therapeutic range (represented by Anti-Factor Xa activity of 0.2 - 0.4 U/mL) corresponds to PTT of 56.6 - 109.0 sec. Performed By: #### 1 [id number] ####[facility] [address] [place] [address] PT Coag (PPP) [Time] 13.4 second(s) High 9.4-12.5 [facility] Comment on above: Result Comment: [...] the same coagulation reagent and instrumentation as [facility]. Currently there are no coagulation studies available worldwide for children to 14 days, and no normal ranges. Performed By: #### 1 [id number] ####[facility] [address] [place] [address] PT & PTTOrdered By: Starr linda on 03-26-2024 INR Coag (PPP) [Relative time] 1.19 {INR} Invalid Interpretation Code [facility] Auto Coag Comment on above: Interpretive Data: [...] 3.0 ? 4.5 Performed By: #### 1 [id number] ####[facility] [address] [place] [address] Patient Education - Texton 0 03-26-2024 Patient [...] ? Doing activities that require a strong structures assembler. ? Having rheumatoid arthritis, gout, or diabetes. [...] on your hand. General instructions ? Take srrh-rlm-lxsaxsf and prescription medicines only as told by [...] care provide (more content not included)... Normal [facility] Ambulatory Visit Summaryon 0 03-20-2024 [...] Appointments Tuesday 12:30 PM EDT With: Where: [facility] Surgical Services Tuesday 9:00 AM EDT With: Where: [facility] Invalid Interpretation Code [address] [place] [address]- \.br\ 2023 9:00 AM EDT \.br\ With: Kylah Garcia MD\.br\ Where: [facility] Consent for Procedure/Surger yon 03-20-2024 Consent for Procedure/Surgery [id number] 969#1.00TIFF Normal [facility] Medicine Office/Clini c Noteon 03-20-2024 Family Medicine Office/Clinic Note HPI Staff Dariel is an 83 year old male presenting for ER follow up needs his andre removed ER followup: Hospital: [place] Visit date: 03/10/24 Symptoms the patient presented [...] - Hold coumadin tomorow for surgery Ordered: [facility] Internal Ambulatory Referral 2. Fall at home (W19.XXXA: Unspecified fall, initial encounter) - 2/2 syncope - Nausea before syncope - Will refer to Cardio for evaluation of continues syncope Ordered: [facility] Internal Ambulatory Referral 3. Laceration of head (S01.91XA: Laceration without foreign body of unspecified part of head, initial encounter) - Stables removed - no issues. Ordered: [facility] Internal Ambulatory Referral 4. Syncope (R55: Syncope and collapse) - Will send to Cardio for further work up Ordered: [facility] Internal Ambulatory Referral 5. Hyponatremia (E87.1: Hypo-osmolality and hyponatremia) - Recheck BMP today - Follow up with Nephrology Ordered: [facility] Internal Ambulatory Referral 6. Over weight (E66.3: [...] influenza virus vaccine, inactivated 08/02/2014 Recorded Normal [facility] Comment on above: Result Comment: Elec tronically Signed By: Adam COHN, Kylah Cole\.br\Date and Time Signed: 03/20/24 15:31 EDT Inpatient Patient Summaryon 03-20-2024 Inpatient Patient Summary [facility] [address] [place], [place] [address] [facility] Clinical Discharge Instructions PERSON INFORMATION Name: DARIEL ZABALA [facility]#:[id number] PHYSICIANS Admitting Physician: Axel Hernández DO Attending Physician: Axel Hernández DO PCP: Kylah Garcia MD Discharge Diagnosis: Trigger finger, right little finger Comment: PATIENT EDUCATION INFORMATION Instructions: Trigger Finger Medication Leaflets: Follow up: With: Address: When: Axel Hernández [address] [place] [id number] [facility] () Comments: Keep scheduled appointment Type Location Start Finish [facility] Surgery [facility] Surgical Services 03/26/2024 12:30 PM 03/26/2024 12:45 PM Confirmed FM Lab Draw [facility] 05/01/2024 9:00 AM 05/01/2024 9:20 AM Confirmed FM Medicare Wellness Subsequent [facility] 05/03/2024 8:00 AM 05/03/2024 9:00 AM Confirmed FM Open [facility] 05/03/2024 9:00 AM 05/03/2024 9:15 AM Confirmed [...] mg oral capsule) ubiquinone (CoQ10) Comment: Normal [facility] Outpatient Surgery Discharge Instructionon 03-20-2024 Outpatient Surgery Discharge Instruction [place] [id number] Patient Discharge Instructions PERSON INFORMATION Name: DARIEL [...] Follow up: With: Address: When: Axel Hernández [address] [place], [place] [id number] [facility] (1) Comments: Keep scheduled appointment Type Location Start [facility] Surgery [facility] Surgical Services 03/26/2024 12:30 PM 03/26/2024 12:45 PM Confirmed FM Lab Draw [facility] 05/01/2024 9:00 AM 05/01/2024 9:20 AM Confirmed FM Medicare Wellness Subsequent [facility] 05/03/2024 8:00 AM 05/03/2024 9:00 AM Confirmed FM Open [facility] 05/03/2024 9:00 AM 05/03/2024 9:15 AM Confirmed [...] to serve you. Thank you for choosing [facility] HERE ARE THE MEDICATION CHANGES [...] finger ca (more content not included)... Normal [facility] ECG 12-Leadon 03-12-2024 ECG 12-Lead [id number] EC#1.00TIFF Normal [facility] ED Note-Physicianon 03-12-20 24 ED Note-Physician [id number] A7#1.00TIFF Normal [facility] RAD - CT Reporton 03-12-2024 RAD - [address] Report [id number] 20#1.00TIFF Normal [facility] RAD - CT Report [id number] A4#1.00TIFF Normal [facility] RAD - MISCon 03-12-2024 RAD - MISC [id number] 55#1.00TIFF Normal [facility] Ambulatory Visit Summaryon 0 03-08-2024 [...] Appointments Tuesday 1:45 PM EDT With: Where: [facility] Surgical Services Tuesday 9:00 AM EDT With: Where: [facility] Invalid Interpretation Code [address] [place] [address]- \.br\ 2023 9:00 AM EDT \.br\ With: Adam COHN, Kylah Cole\.br\ Where: [facility] Medicine Office/Clini c Noteon 03-08-2024 Family Medicine Office/Clinic Note HPI Staff Dariel is an 83 year old male presenting for surgical clearance Needs clearance and hold coumadin in writing and faxed to Dr Hernández at [phone] Note: he would really benefit for chronic care management if he qualifies ( he walks in here at least once a week with questions Date of surgery: March 26, 2024 Surgeon: Dr Hernández Hospital: [facility] Type of Surgery: rt little finger trigger [...] disorder) - Will send to Derm. Ordered: [facility] External Ambulatory Referral Follow-up No qualifying data [...] 08/02/2014 Recorded Normal [facility] Comment on above: Result Comment: Elec [...] numbers. This can be done either in [place] or metric measurements. Note that charts and online BMI calculators are available to help you find your BMI quickly and easily without having to do these calculations yourself. To calculate your BMI in [place] measurements: 1. Measure your weight in [...] for Disease Control and Prevention: www.cdc.gov ? [place] Heart Association: www.heart.org ? National Heart, Lung, and Blood [place]: www.nhlbi.nih.gov Summary ? Body mass index (BMI) is a number that is calculated from a person's weight and height. ? BMI may help estimate how much of a person's weight is composed of fat. BMI can help identify those who may be at higher risk for certain medical problems. ? BMI can be measured using [place] measurements or metric measurements. ? BMI charts are used to identify whether you are underweight, normal weight, overweight, or obese. This information is not intended to replace advice given to you by your health care provider. Make sure you discuss any questions you have with your health care provider. Document Revised: 07/23/2020 Document Reviewed: 05/30/2020 [employer] Patient Education ? 2022 [employer]. Normal [facility] Physician Referralon 024 Physician Referral [id number] 859#1.00TIFF [facility] XR Chest 2 Viewson 4 XR Chest [...] mGy = na DAP = na Normal [facility] BMPon 03-06-2024 Anion gap [Moles/Vol] 10 mmol/L Normal 6-16 [facility] Comment on above: Performed By: #### 1 [id number], 7441506, 7585504 ####[facility] [address] [place] [address] Calcium [Mass/Vol] 9.1 mg/dL Normal 8.9-11.1 [facility] Comment on above: Performed By: #### 1 3218625, 2206771, 7007791 ####[facility] [address] [place] [address] Chloride [Moles/Vol] 102 mmol/L Normal 101-111 [facility] Comment on above: Performed By: #### 1 3551725, 2657038, 2301946 ####[facility] [address] [place] [address] CO2 [Moles/Vol] 28 mmol/L Normal 21-31 [facility] Comment on above: Performed By: #### 1 9061846, 5584717, 3022308 ####[facility] [address] [place] [address] Creatinine [Mass/Vol] 1.0 mg/dL Normal 0.5-1.3 [facility] Comment on above: Performed By: #### 1 5516774, 3864828, 6875659 ####[facility] [address] [place] [address] Glucose [Mass/Vol] 98 mg/dL Normal 55-199 [facility] Comment on above: Performed By: #### 1 9345889, 3873960, 4011225 ####[address] [address] Potassium [Moles/Vol] 4.3 mmol/L Normal 3.5-5.3 [facility] Comment on above: Performed By: #### 1 5915207, 7308178, 0411137 ####[address] [address] Sodium [Moles/Vol] 136 mmol/L Normal 135-145 [facility] Comment on above: Performed By: #### 1 7317098, 9959402, 0730211 ####[address] [address] Urea nitrogen [Mass/Vol] 14 mg/dL Normal 5-21 [facility] Comment on above: Performed By: #### 1 1008753, 8746796, 0763695 ####[address] [address] Urea nitrogen/Creatinine [Mass ratio] 14 No Units Normal 10-20 [facility] Comment on above: Performed By: #### 1 6896677, 9119845, 7787390 ####[address] [address] CBC w/ Auto Diffon 4 Basophils/100 WBC (Bld) 1.0 % Normal 0.0-2.0 [facility] Comment on above: Performed By: #### 1 6884800, 1087926, 6721435 ####[address] [address] Basophils/Leukocytes Auto (Bld) [Pure # fraction] 0.0 E9/L Normal 0.0-0.2 [facility] Comment on above: Performed By: #### 1 2008636, 8267445, 8496094 ####[address] [address] Eosinophils (Bld) [#/Vol] 0.2 E9/L Normal 0.0-0.5 [facility] Comment on above: Performed By: #### 1 4353066, 3760000, 7322944 ####[address] [address] Eosinophils/100 WBC (Bld) 3.9 % Normal 0.0-8.0 [facility] Comment on above: Performed By: #### 1 0759793, 9110664, 9245348 ####[address] [address] Erythrocyte distribution width (RBC) [Ratio] 14.0 % Normal 10.9-14.2 [facility] Comment on above: Performed By: #### 1 8883702, 3919164, 7406655 ####[address] [address] Hematocrit (Bld) [Volume fraction] 39.1 % Normal 37.7-49.0 [facility] Comment on above: Performed By: #### 1 7729490, 2535316, 0741211 ####[address] [address] Hemoglobin (Bld) [Mass/Vol] 13.0 g/dL Low 13.5-17.5 [facility] Comment on above: Performed By: #### 1 0701453, 5741757, 5369425 ####[address] [address] Lymphocytes (Bld) [#/Vol] 1.4 E9/L Normal 1.0-4.0 [facility] Comment on above: Performed By: #### 1 5901620, 3111538, 6821532 ####[address] [address] Lymphocytes/100 WBC (Bld) 31.0 % Normal 14.0-50.0 [facility] Comment on above: Performed By: #### 1 0471502, 8986566, 7620753 ####[address] [address] MCH (RBC) [Entitic mass] 30.3 pg Normal 27.0-34.0 [facility] Comment on above: Performed By: #### 1 1902865, 5499158, 6636253 ####[address] [address] MCHC (RBC) [Mass/Vol] 33.3 g/dL Normal 31.4-36.0 [facility] Comment on above: Performed By: #### 1 6939126, 1906227, 8269676 ####[address] [address] MCV (RBC) [Entitic vol] 91.2 fL Normal 80.0-100.0 [facility] Comment on above: Performed By: #### 1 1989957, 1066449, 5593739 ####[place] [address] Monocytes (Bld) [#/Vol] 0.4 E9/L Normal 0.2-1.0 [facility] Comment on above: Performed By: #### 1 2793246, 9232894, 0991035 ####[address] [address] Neutrophils (Bld) [#/Vol] 2.5 E9/L Normal 2.0-7.5 [facility] Comment on above: Performed By: #### 1 5729147, 8804673, 0968057 ####[address] [address] Neutrophils/100 WBC (Bld) 55.3 % Normal 36.0-75.0 [facility] Comment on above: Performed By: #### 1 6254532, 8517861, 4155676 ####[address] [address] Platelet 157.0 E9/L Normal 150.0-500.0 [facility] Comment on above: Performed By: #### 1 5419342, 5236801, 3476080 ####[address] [place] [address] Platelet mean volume (Bld) [Entitic vol] 9.7 fL Normal 6.4-10.8 [facility] Comment on above: Performed By: #### 1 1758647, 0632072, 7669600 ####[facility] [address] [place] [address] RBC (Bld) [#/Vol] 4.3 E12/L Normal 4.3-5.9 [facility] Comment on above: Performed By: #### 1 8605383, 1485411, 1314890 ####[facility] [address] [place] [address] WBC corrected for nucl RBC Auto (Bld) [#/Vol] 4.6 E9/L Normal 4.0-11.0 [facility] Comment on above: Performed By: #### 1 2182260, 4456472, 9103099 ####[facility] [address] [place] [address] CHEMISTRYOrdered By: SYSTEM SYSTEM on 03-06-2024 Anion [...] for Treatmenton 02-13 Consent for Treatment [id number] B4#1.00TIFF Normal [facility] HEMATOLOGYOrdered By: SYSTEM SYSTEM on [...] 03-06-2024 eGFR 75 mL/min/1.73 m2 Normal >=59 [facility] Comment on above: Order Comment: Order added by Discern Expert. Performed By: #### 1 6597012, 0861609, 7703135 ####[facility] [address] [place] [address] Consultation Noteon 03-01-20 Consultation Note [id number] 5E#1.00TIFF Normal [facility] Lab Reportson 02-27-2024 Lab Reports [id number] E7#1.00TIFF Normal [facility] Family Medicine Office/Clini c Noteon 02-07-2024 Family Medicine Office/Clinic Note HPI Staff Dariel is an 83 year old male presenting for 2 month follow up DM Needs refills of levothyroxine and glimiperide to [facility] Do you have any of the following symptoms? Foot Exam: none Eye Exam: due Last A1C: Hgb A1C %: 5.6 % (12/01/23 14:31:00) Statin: pravastatin 40mg questions/concerns: saw kidney specialist (Rashad) about 3 weeks ago ( no report in file) was told to stop the omeprazole and meloxicam and cut salt tablets from tid to bid. Also says [facility] sent him a letter and said you [...] his left side. The patient saw his orchid worker on 12/28/2023. His omeprazole and meloxicam were [...] cardiovascular disease) (I25.10: Atherosclerotic heart disease of [place] coronary artery without angina pectoris) He has [...] with voice recognition artificial intelligence software, specifically [employer], [employer]PAD and or Return Path. Substitutions may have occurred due to the inherent limitations of voice recognition and artificial intelligence software. ATTESTATION: Documentation services were performed after patient or guardian consented to allow [employer] to record this visit. MLEISSA art therapy specialist and provider reviewed before signing. MELISSA: [...] in life (more content not included)... Normal [facility] Comment on above: Result Comment: [...] Appointments Tuesday 9:00 AM EDT With: Where: [facility] Invalid Interpretation Code [address] [place] [address]- \.br\ 2023 9:00 AM EDT \.br\ With: Kylah Garcia MD\.br\ Where: [facility] [place] [facility] Physician Referralon 024 Physician Referral [id number] 6#1.00TIFF Normal [facility] Lab Reportson 01-05-2024 Lab Reports [id number] C1#1.00TIFF Normal [facility] Transfer Inon 12-08-2023 Transfer In [id number] F9#1.00TIFF Normal [facility] Auth for Release of Medical Recordson 12-06-2023 Auth for Release of Medical Records [id number] E#1.00TIFF Normal [facility] Family Medicine Office/Clini c Noteon [...] Prior to usp, he worked at a [employer] for 4 days a week. 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 He and his family relocated from [place] to [place] 7 months ago, but they originally grew up in [place]. Review of Systems PHQ Score Initial Depression [...] cardiovascular disease) (I25.10: Atherosclerotic heart disease of [place] coronary artery without angina pectoris) He will [...] with voice recognition artificial intelligence software, specifically [employer], [employer] and or [employer]. Substitutions may have occurred due to the inherent limitations of voice recognition and artificial intelligence software. Documentation services were performed after patient or guardian consented to allow [employer] to record this visit. MELISSA art therapy specialist and provider reviewed before signing. MELISSA: [...] Oral, Horace (more content not included)... Normal [facility] Comment on above: Result Comment: Elec tronically Signed By: Kylah Garcia MD\.br\Date and Time Signed: 12/02/23 08:22 EST\.br\Electronically Co-Signed By: Allie Conway\.br\Date and Time Co-Signed: 12/01/23 17:49 EST Lab Reportson 12-02-2023 Lab Reports [id number] 1#1.00TIFF [facility] Ambulatory Visit Summaryon 0 12-01-2023 Ambulatory Visit [...] for choosing us for your care. Normal [facility] CBC w/ Auto Diffon 4 NRBC Man 0 Normal 0-0 [facility] Comment on above: Performed By: #### 2 346845, 5404978, 59234906, 4569828, [id number] #### [facility] Laboratory [address] [place] [address] Basophil Absolute 0.0 E9/L Normal 0.0-0.2 [facility] Comment on above: Performed By: #### 2 210880, 9671628, 52091154, 1551249, [id number] #### [facility] Laboratory [address] [place] [address] Basophils/100 WBC (Bld) 0.4 % Normal 0.0-2.0 [facility] Comment on above: Performed By: #### 2 562881, 1131889, 24992317, 5764282, 932256337 #### [facility] [address] [place] [address] Eos Absolute 0.2 E9/L Normal 0.0-0.5 [facility] Comment on above: Performed By: #### 2 789932, 8464343, 49890910, 1441952, 206710962 #### [facility] [address] [place] [address] Eosinophils/100 WBC (Bld) 2.9 % Normal 0.0-8.0 [facility] Comment on above: Performed By: #### 2 786391, 8186794, 95507215, 0647141, 866613021 #### [facility] [address] [place] [address] Erythrocyte distribution width (RBC) [Ratio] 14.0 % Normal 10.9-14.2 [facility] Comment on above: Performed By: #### 2 286820, 1993187, 00770195, 2501066, 081067269 #### [facility] Laboratory [address] [place] [address] Hematocrit (Bld) [Volume fraction] 37.0 % Low 37.7-49.0 [facility] Comment on above: Performed By: #### 2 130178, 4796791, 95087596, 8749976, 736879834 #### [facility] [address] [place] [address] Hemoglobin (Bld) [Mass/Vol] 12.1 g/dL Low 13.5-17.5 [facility] Comment on above: Performed By: #### 2 481435, 9059443, 81821799, 2492920, 272448309 #### [facility] [address] [place] [address] Lymph Absolute 1.8 E9/L Normal 1.0-4.0 [facility] Comment on above: Performed By: #### 2 066298, 9477942, 95699225, 8821423, 441135710 #### [facility] Laboratory [address] [place] [address] Lymphocytes/100 WBC (Bld) 29.3 % Normal 14.0-50.0 [facility] Comment on above: Performed By: #### 2 267080, 3240989, 57069134, 9966415, [id number] #### [facility] [address] [place] [address] MCH (RBC) [Entitic mass] 30.8 pg Normal 27.0-34.0 [facility] Comment on above: Performed By: #### 2 121414, 2067989, 48652496, 6565165, 996208393 #### [facility] [address] [place] [address] MCHC (RBC) [Mass/Vol] 32.8 g/dL Normal 31.4-36.0 [facility] Comment on above: Performed By: #### 2 221003, 7115736, 03307527, 3999627, [id number] #### [facility] Laboratory [address] [place] [address] 11811 MCV (RBC) [Entitic vol] 93.8 fL Normal 80.0-100.0 [facility] Comment on above: Performed By: #### 2 346857, 0424959, 01393233, 7061074, [id number] #### [facility] [address] [place] [address] 33885 [place] Absolute 0.5 E9/L Normal 0.2-1.0 [facility] Comment on above: Performed By: #### 2 268228, 1978876, 98759856, 2200490, [id number] #### [facility] [address] [place] [address] 64765 Monocytes/100 WBC (Bld) 7.9 % Normal 4.0-14.0 [facility] Comment on above: Performed By: #### 2 658817, 4822612, 93208771, 9080086, [id number] #### [facility] [address] [place] [address] Neutro Absolute 3.6 E9/L Normal 2.0-7.5 [facility] Comment on above: Performed By: #### 2 692586, 3307532, 92460803, 3634307, [id number] #### [facility] [address] [place] [address] 52605 Neutro Auto 59.5 % Normal 36.0-75.0 [facility] Comment on above: Performed By: #### 2 551625, 1788283, 73604155, 8260511, 328704023 #### [facility] [address] [id number] Platelet 198.0 E9/L Normal 150.0-500.0 [facility] Comment on above: Performed By: #### 2 503694, 7871438, 68981422, 2113424, 912289539 #### [facility] [address] [id number] Platelet mean volume (Bld) [Entitic vol] 9.5 fL Normal 6.4-10.8 [facility] Comment on above: Performed By: #### 2 748797, 6575790, 97428731, 8553044, 045507471 #### [facility] [address] [address]84[address] RBC 3.9 E12/L Low 4.3-5.9 [facility] Comment on above: Performed By: #### 2 963272, 3656921, 55229257, 1828418, 784803577 #### [facility] [address] [address]84[address] WBC 6.0 E9/L Normal 4.0-11.0 [facility] Comment on above: Performed By: #### 2 987684, 7959960, 59695170, 4827511, 555723714 #### [facility] [address] [id number] CHEMISTRYOrdered By: Kate Sotomayor on 12-01-2023 U [...] (Bld) [Mass fraction] 5.6 % Normal <=5.9% [facility] ChemAutoSS CMPon 12-01-2023 Albumin [Mass/Vol] 3.9 g/dL Normal 3.3-5.0 [facility] Comment on above: Performed By: #### 2 923033, 6249729, 13088433, 6788101, 121316688 #### [facility] [address] [place] [address] Albumin/Globulin [Mass ratio] 1.6 {ratio} Normal 1.1-2.2 [facility] Comment on above: Performed By: #### 2 292757, 9244996, 99545421, 6214724, 126651835 #### [facility] [address] [place] [address] Alk Phos 75 Int._Unit/L Normal 21-98 [facility] Comment on above: Performed By: #### 2 688590, 8285716, 98434970, 5489305, 717125374 #### [facility] [address] [place] [address] ALT 12 Int._Unit/L Normal 6-46 [facility] Comment on above: Performed By: #### 2 735411, 3928682, 10747763, 1937024, 538463534 #### [facility] [address] [place] [address] Anion gap [Moles/Vol] 9 mmol/L Normal 6-16 [facility] Comment on above: Performed By: #### 2 914588, 7892551, 03531122, 4942885, 303493992 #### [facility] [address] [place] [address] AST 20 Int._Unit/L Normal 5-43 [facility] Comment on above: Performed By: #### 2 549903, 9187393, 77908056, 3171104, 735547340 #### [facility] [address] [place] [address] Bili Total 0.9 mg/dL Normal 0.0-1.1 [facility] Comment on above: Performed By: #### 2 609899, 2946066, 01470143, 8170605, 355245193 #### [facility] [address] [place] [address] BUN/Creat Ratio 10 No Units Normal 10-20 [facility] Comment on above: Performed By: #### 2 541887, 6965166, 52408754, 3074418, 015061065 #### [facility] [address] [place] [address] Calcium [Mass/Vol] 8.7 mg/dL Low 8.9-11.1 [facility] Comment on above: Performed By: #### 2 592941, 9340206, 81049451, 1848408, 728528881 #### [facility] [address] [place] [address] Chloride [Moles/Vol] 104 mmol/L Normal 101-111 [facility] Comment on above: Performed By: #### 2 556069, 2223332, 76578289, 3255813, 878530031 #### [facility] [address] [place] [address] CO2 [Moles/Vol] 30 mmol/L Normal 21-31 [facility] Comment on above: Performed By: #### 2 721756, 6733783, 71637174, 3388774, 285997645 #### [facility] [address] [place] [address] Creatinine [Mass/Vol] 1.1 mg/dL Normal 0.5-1.3 [facility] Comment on above: Performed By: #### 2 257017, 2008813, 89204380, 1251200, 175784244 #### [facility] [address] [place] [address] Globulin (S) [Mass/Vol] 2.5 g/dL Normal 1.4-4.0 [facility] Comment on above: Performed By: #### 2 200660, 4884579, 17472530, 1439269, 961339855 #### [facility] [address] [place] [address] Glucose [Mass/Vol] 72 mg/dL Normal 55-199 [facility] Comment on above: Performed By: #### 2 855833, 5820142, 99182756, 9523406, 905121383 #### [facility] [address] [place] [address] Potassium [Moles/Vol] 4.2 mmol/L Normal 3.5-5.3 [facility] Comment on above: Performed By: #### 2 923638, 5002980, 15245035, 5799768, 539023553 #### [facility] [address] [place] [address] Protein [Mass/Vol] 6.4 g/dL Normal 6.0-7.8 [facility] Comment on above: Performed By: #### 2 675681, 6126481, 56897476, 5163903, 052356281 #### [facility] [address] [place] [address] Sodium [Moles/Vol] 139 mmol/L Normal 135-145 [facility] Comment on above: Performed By: #### 2 488907, 3350489, 74740133, 9350231, 875445727 #### [facility] [address] [place] [address] Urea nitrogen [Mass/Vol] 11 mg/dL Normal 5-21 [facility] Comment on above: Performed By: #### 2 322945, 7805371, 03133577, 1967938, 032419539 #### [facility] [address] [place] [address] HEMATOLOGYOrdered By: SYSTEM SYSTEM on 12-01-2023 Basophil [...] Normal 80.0 - 100.0 fL Remisol Heme [place] Absolute 0.5 E9/L Normal 0.2 - 1.0 [...] 1 Normal 0 - 0 Remisol Heme [id number] 12-01-2023 HbA1c (Bld) [Mass fraction] 5.6 % Normal <=5.9 [facility] Comment on above: Performed By: #### 2 992261, 8910282, 91915624, 1481548, 493946741 ####[facility] [address] [place] [address] Lipid Panelon 12-01-2023 Cholesterol [Mass/Vol] 156 mg/dL Normal 120-200 [facility] Comment on above: Performed By: #### 2 295307, 2473914, 10743449, 0639649, 891191634 #### [facility] [address] [place] [address] Cholesterol in HDL [Mass/Vol] 51 mg/dL Invalid Interpretation Code [facility] Comment on above: Result Comment: '>= 60 LOW RISK' '<= 40 HIGH RISK' Performed By: #### 2 600779, 1115567, 66516818, 3074979, 714708202 #### [facility] [address] [place] [address] Cholesterol in LDL [Mass/Vol] 89 mg/dL Normal <=129 [facility] Comment on above: Performed By: #### 2 691036, 6637370, 68813526, 4492986, 767489871 #### [facility] [address] [place] [address] Cholesterol in VLDL [Mass/Vol] 18 mg/dL Normal 7-40 [facility] Comment on above: Performed By: #### 2 167274, 1621222, 03812127, 2733886, 552209296 #### [facility] [address] [place] [address] Triglyceride [Mass/Vol] 92 mg/dL Normal <=149 [facility] Comment on above: Performed By: #### 2 232992, 5866190, 74584684, 8497966, 505815725 #### [facility] [address] [place] [address] U Microalbon 12-01-2023 U Microalb <2.0 Normal 0.0-19.0 [facility] Comment on above: Performed By: #### 1 224681958, 92167884 ####[facility] [address] [place] [address] U Protein/Creat Ratioon 11-14 U Creatinine 62.5 mg/dL Invalid Interpretation Code [facility] Comment on above: Performed By: #### 1 214090903, 27710048 ####[facility] [address] [place] [address] U Prot/Creat Ratio NOT CALCULATED Invalid Interpretation Code .00-200.00 [facility] Comment on above: Performed By: #### 1 [id number], 44169137 ####[facility] [address] [place] [address] Ur Total Protein <6.0 Invalid Interpretation Code [facility] Comment on above: Performed By: #### 1 [id number], 69543339 ####[facility] [address] [place] [address] eGFRon 12-01-2023 eGFR 67 mL/min/1.73 m2 Normal >=59 [facility] Comment on above: Order Comment: Order added by Discern Expert. Performed By: #### 2 781474, 1584076, 38583268, 3932276, 144084328 #### [facility] [address] [place] [address] Basic Metabolic Panelon 10-15 Anion gap [Moles/Vol] 8.1 mmol/L Normal 6.0-15.0 [facility] Comment on above: Order Comment: Reaso n for Exam Hyponatremia Performed By: #### C BC, BMP #### [facility] [address] Calcium [Mass/Vol] 9.3 mg/dL Normal 8.6-10.3 [facility] Comment on above: Order Comment: Reaso n for Exam Hyponatremia Result Comment: PERF ORMED BY: [place] [address] PATHOLOGIST NEUROPSYCHOLOGIST DANNY NEAL M.D. Performed By: #### C BC, BMP #### [address] Chloride [Moles/Vol] 102 mmol/L Normal 98-107 [facility] Other Comment on above: Order Comment: Reaso n for Exam Hyponatremia Performed By: #### C BC, BMP #### [address] CO2 [Moles/Vol] 32.4 mmol/L High 21.0-31.0 [facility] Comment on above: Order Comment: Reaso n for Exam Hyponatremia Performed By: #### C BC, BMP #### [place] [address] [place] Creatinine [Mass/Vol] 1.07 mg/dL Normal 0.70-1.30 [facility] Comment on above: Order Comment: Reaso n for Exam Hyponatremia Performed By: #### C BC, BMP #### [place] [address] [place] GFR/1.73 sq M.predicted MDRD (S/P/Bld) [Vol rate/Area] mL/min/{1.73_m2} Normal [employer] Other Comment on above: Order Comment: Reaso n for Exam Hyponatremia Performed By: #### C BC, BMP #### [facility] [address] [place] [address] [place] Glucose [Mass/Vol] 93 mg/dL Normal 70-100 [employer] Other Comment on above: Order Comment: Reaso n for Exam Hyponatremia Result Comment: [place] Glucose Reference Range is dependent on time and content of last meal. Glucose of more than 200 mg/dL in a nonstressed, ambulatory subject supports the diagnosis of Diabetes Mellitus. ADA recommended reference range Performed By: #### C BC, BMP #### [facility] [address] [id number] [facility] Potassium [Moles/Vol] 4.5 mmol/L Normal 3.5-5.1 [facility] Comment on above: Order Comment: Reaso n for Exam Hyponatremia Performed By: #### C BC, BMP #### [facility] [address] [address] [place] Sodium [Moles/Vol] 138 mmol/L Normal 136-145 [employer] Other Comment on above: Order Comment: Reaso n for Exam Hyponatremia Performed By: #### C BC, BMP #### [facility] [address] [address] [place] Urea nitrogen [Mass/Vol] 13 mg/dL Normal 7-25 [employer] Other Comment on above: Order Comment: Reaso n for Exam Hyponatremia Performed By: #### C BC, BMP #### [facility] [address] [address] [place] Calcium [Mass/Vol] 9.9842259 mg/dL Normal 8.6-10.3 mg/ dL [employer] Other CO2 [Moles/Vol] 32.54094558 mmol/L High 21.0-31.0 mm ol/L [employer] Other Creatinine [Mass/Vol] 1.16289880 mg/dL Normal 0.70-1.30 mg/dL [employer] Other Potassium [Moles/Vol] 4.75121719 mmol/L Normal 3.5-5.1 mmol/L [employer] Other Complete Blood Count Auto Di ffon 11-02-2023 Basophils (Bld) [#/Vol] 0.1 10*3/uL Normal 0.0-0.2 [facility] Comment on above: Order Comment: Reaso n for Exam Atrial fibrillation Result Comment: PERF ORMED BY: [place] [address] PATHOLOGIST NEUROPSYCHOLOGIST DANNY NEAL M.D. Performed By: #### C BC, BMP #### [address] Basophils/100 WBC (Bld) 1.0 % Normal . [facility] Comment on above: Order Comment: Reaso n for Exam Atrial fibrillation Performed By: #### C BC, BMP #### [address] Eosinophils (Bld) [#/Vol] 0.1 10*3/uL Normal 0.0-0.45 [facility] Comment on above: Order Comment: Reaso n for Exam Atrial fibrillation Performed By: #### C BC, BMP #### [address] Eosinophils/100 WBC (Bld) 2.1 % Normal . [facility] Comment on above: Order Comment: Reaso n for Exam Atrial fibrillation Performed By: #### C BC, BMP #### [address] Erythrocyte distribution width (RBC) [Ratio] 14.0 % Normal 12.0-14.8 [facility] Comment on above: Order Comment: Reaso n for Exam Atrial fibrillation Performed By: #### C BC, BMP #### [address] Hematocrit (Bld) [Volume fraction] 38.8 % Normal 38.8-50.0 [facility] Comment on above: Order Comment: Reaso n for Exam Atrial fibrillation Performed By: #### C BC, BMP #### [address] Hemoglobin (Bld) [Mass/Vol] 13.2 g/dL Normal 13.0-17.0 [facility] Comment on above: Order Comment: Reaso n for Exam Atrial fibrillation Performed By: #### C BC, BMP #### [address] Lymphocytes (Bld) [#/Vol] 1.3 10*3/uL Normal 1.00-4.8 [facility] Comment on above: Order Comment: Reaso n for Exam Atrial fibrillation Performed By: #### C BC, BMP #### [address] Lymphocytes/100 WBC (Bld) 21.8 % Normal . [facility] Comment on above: Order Comment: Reaso n for Exam Atrial fibrillation Performed By: #### C BC, BMP #### [address] MCH (RBC) [Entitic mass] 31.5 pg Normal 27.5-35.2 [facility] Comment on above: Order Comment: Reaso n for Exam Atrial fibrillation Performed By: #### C BC, BMP #### [address] MCV (RBC) [Entitic vol] 92.7 fL Normal 83.5-101 [facility] Comment on above: Order Comment: Reaso n for Exam Atrial fibrillation Performed By: #### C BC, BMP #### [address] Mean Corpuscular HGB Conc 34.0 g/dL Normal 32.5-35.6 [facility] Comment on above: Order Comment: Reaso n for Exam Atrial fibrillation Performed By: #### C BC, BMP #### [place] [address] [place] Monocytes (Bld) [#/Vol] 0.5 10*3/uL Normal 0.0-0.8 [facility] Comment on above: Order Comment: Reaso n for Exam Atrial fibrillation Performed By: #### C BC, BMP #### [place] [address] [place] Monocytes/100 WBC (Bld) 8.5 % Normal . [facility] Comment on above: Order Comment: Reaso n for Exam Atrial fibrillation Performed By: #### C BC, BMP #### [facility] [address] [address] [place] Neutrophils (Bld) [#/Vol] 4.0 10*3/uL Normal 1.8-7.7 [facility] Comment on above: Order Comment: Reaso n for Exam Atrial fibrillation Performed By: #### C BC, BMP #### [facility] [address] [address] [place] Neutrophils/100 WBC (Bld) 66.6 % Normal . [facility] Comment on above: Order Comment: Reaso n for Exam Atrial fibrillation Performed By: #### C BC, BMP #### [facility] [address] [place] [address] [place] NRBC% 0.1 /100{WBC} Normal 0-0.5 [facility] Comment on above: Order Comment: Reaso n for Exam Atrial fibrillation Performed By: #### C BC, BMP #### [facility] [address] [place] [address] [place] Platelet mean volume (Bld) [Entitic vol] 9.4 fL Normal 6.6-10.1 [facility] Comment on above: Order Comment: Reaso n for Exam Atrial fibrillation Performed By: #### C BC, BMP #### [facility] [address] [place] [address] [place] Platelets (Bld) [#/Vol] 153 10*3/uL Normal 150-450 FRM Study Course [facility] [employer] Other Comment on above: Order Comment: Reaso n for Exam Atrial fibrillation Performed By: #### C BC, BMP #### [facility] [address] [place] [address] [place] RBC (Bld) [#/Vol] 4.19 10*6/uL Normal 3.90-5.60 [employer] Other Comment on above: Order Comment: Reaso n for Exam Atrial fibrillation Performed By: #### C BC, BMP #### [facility] [address] [place] [address] [place] WBC (Bld) [#/Vol] 6.1 10*3/uL Normal 4.1-10.5 [facility] Comment on above: Order Comment: Reaso n for Exam Atrial fibrillation Performed By: #### C BC, BESS #### [facility] [address] Basophils (Bld) [#/Vol] 0.483624283 10*3/uL Normal 0.0-0.2 10*3/uL [employer] Other Basophils/100 WBC (Bld) 1.000 % . % [employer] Other Eosinophils (Bld) [#/Vol] 0.892451816 10*3/uL Normal 0.0-0.45 10*3/uL [employer] Other Eosinophils/100 WBC (Bld) 2.100 % . % [employer] Other Erythrocyte distribution width (RBC) [Ratio] 14.000 % Normal 12.0-14.8 % [employer] Other Hematocrit (Bld) [Volume fraction] 38.800 % Normal 38.8-50.0 % [employer] Other Hemoglobin (Bld) [Mass/Vol] 13.397372 g/dL Normal 13.0-17.0 g/dL [employer] Other Lymphocytes (Bld) [#/Vol] 1.444699261 10*3/uL Normal 1.00-4.8 10*3/uL [employer] Other Lymphocytes/100 WBC (Bld) 21.800 % . % [employer] Other MCH (RBC) [Entitic mass] 31.5000 pg Normal 27.5-35.2 pg [employer] Other MCV (RBC) [Entitic vol] 92.7000 fL Normal 83.5-101 fL [employer] Other Monocytes (Bld) [#/Vol] 0.641922867 10*3/uL Normal 0.0-0.8 10*3/uL [employer] Other Monocytes/100 WBC (Bld) 8.500 % . % [employer] Other Neutrophils (Bld) [#/Vol] 4.418136072 10*3/uL Normal 1.8-7.7 10*3/uL [employer] Other Neutrophils/100 WBC (Bld) 66.600 % . % [employer] Other Platelet mean volume (Bld) [Entitic vol] 9.4000 fL Normal 6.6-10.1 fL [employer] Other WBC (Bld) [#/Vol] 6.748185477 10*3/uL Normal 4.1-10.5 10*3/uL [employer] Other Complete Blood Count Auto Diff 6.1 10*3/uL Normal 4.1-10.5 10*3/uL [employer] Other Complete Blood Count Auto Diff 34.0 g/dL Normal 32.5-35.6 g/dL [employer] Other Complete Blood Count Auto Diff 0.1 /100{WBC} Normal 0-0.5 /100{WBC} [employer] Other PSA Screen (Yearly Only)on 01-03-2023 PSA Screen (Yearly Only) 1.940 ng/mL Normal 0.000-4.000 [facility] Comment on above: Order Comment: Reaso n for Exam Prostate cancer screening Result Comment: Dominik jacob tumor marker results determined by assays using different manufacturers or methods may not be comparable. [facility] Laboratory loom doffer and method: Top[employer]EL DXI, CHEMILUMINESCENT IMMUNOASSAY. PERFORMED BY: [address] [place] [address] PATHOLOGIST NEUROPSYCHOLOGIST DANNY NEAL M.D. Performed By: #### P SAS #### [address] [place] [address] [place] Prothrombin Time INRon 06-16 INR Coag (PPP) [Relative time] 2.4 {INR} Normal [facility] Other Comment on above: Result Comment: INR [...] heart valves: 3 - 4.5 PERFORMED BY: [place] [address] PATHOLOGIST NEUROPSYCHOLOGIST DANNY NEAL M.D. Performed By: #### P T #### [facility] [address] [place], [place] [id number] [facility] PT Coag (PPP) [Time] 27.8 s High 9.0-12.9 [facility] Comment on above: Performed By: #### P T #### [facility] [address] [place] [address] [facility] PT Coag (PPP) [Time] 27.800 s High 9.0-12.9 s [facility] Other Coding Summaryon 05-12-2020 Coding Summary CODING DATE: 05/12/2020 [facility] STATUS: Home PAYOR: Medicare MC ADMIT [...] Date Saved: 05/12/2020 02:18 pm [facility] ED Clinical Summaryon 2019 ED Clinical Summary [facility] ? Urgent Care [address] [place] [address] Clinical Summary PERSON INFORMATION Name: DARIEL ZABALA Age: 80 Years Sex: MALE : 1940 MRN: Acct#: Visit Reason: UC - Ear Problem; BILAT EAR PROBLEM Arrival: 05/08/2020 09:32:00 Discharge: 05/08/2020 10:15:00 LOS: 000 00:43 Check In: 05/08/2020 09:32:00 Checkout: 05/08/2020 10:15:00 [facility] [address] PCP: Provider, Unlisted PROVIDER INFORMATION Provider Role [...] Adult Follow-Up: With: Address: When: Andrés Arellano [facility], [address] [place] [address] Business (1) Comments: Please follow-up with your Doctor or Dr. Arellano, Medical Doctor data solutions architect, call their offices and make ointment to be seen in 3 days or sooner for continued care, please purchase [id number]-nik-wugdrcl Debrox which helps breakdown earwax, take all your medications as previously prescribed, drink plenty of water for hydration, and return back to urgent care center for any worsening symptoms, concerns, or complications. DIAGNOSIS: 1:Impacted cerumen of both ears Patient Understands: Yes - Patient/family/nurse care manager verbalizes understanding of instructions given Comment: Normal [facility] ED Patient Summaryon 020 ED Patient Summary [facility] ? Urgent Care [address] [place], [place] [id number] PATIENT DISCHARGE INSTRUCTIONS Patient Information Name: DARIEL ZABALA Age: 80 Years Date of : 1940 Reason For Visit: UC - Ear Problem; BILAT EAR PROBLEM Arrival Time: 05/08/2020 09:32:00 Primary Care Physician: Provider, Unlisted Attending Physician: Larry Billingsley PA-C Comment: Patient Education With: Address: When: Andrés Arellano [facility], [address] [place] [address] [phone] Business (1) Comments: Please follow-up with your Doctor or Dr. Arellano, Medical Doctor data solutions architect, call their offices and make ointment to be seen in 3 days or sooner for continued care, please purchase [id number]-iyg-cfbgvir Debrox which helps breakdown earwax, take all [...] Follow these instructions at home: ? Take qebm-abj-aigazvw and prescription medicines only as told by [...] clean them according to instructions from the loom doffer and your health care provider. Contact a [...] 12/08/2005 Document Revised: 10/12/2018 Document Reviewed: 01/11/2018 [employer] Patient Education ? 2019 [employer] Medication Information: The exam and treatment you received today in the [facility] were for an urgent problem and are not intended as complete care. It is important for you to follow up with a doctor, nurse practitioner, or physician?s surgeon's assistant for ongoing care. If your symptoms [...] we can reach you if necessary. [facility] Emergency Department has provided you with a complete list of medications post discharge. Please inform your patcher bowling ball/provider of your visit and for further instruction [...] both ears (H61.23) UC - Ear Problem ([id number]) If you received any narcotics, sedation, or [...] Control and Prevention July 2014 [facility] Patient Handouton 05-08-2020 Patient Handout Patient Education [...] Follow these instructions at home: ? Take lkhy-cfk-acpxvnt and prescription medicines only as told by [...] clean them according to instructions from the loom doffer and your health care provider. Contact a [...] 12/08/2005 Document Revised: 10/12/2018 Document Reviewed: 01/11/2018 [employer] Patient Education ? 2019 [employer] Normal [facility] Recordon 05-08- 020 Urgent Care Record [facility] ? Urgent Care [address] [id number] PATIENT DISCHARGE INSTRUCTIONS Patient Information Name: DARIEL ZABALA Age: 80 Years Date of : 1940 Reason For Visit: UC - Ear Problem; BILAT EAR PROBLEM Arrival Time: 05/08/2020 09:32:00 Primary Care Physician: Provider, Unlisted Attending Physician: Larry Billingsley PA-C Comment: Visit Diagnosis: Diagnoses This Visit Impacted cerumen of both ears (H61.23) UC - Ear Problem ([id number]) If you received any narcotics, sedation, or [...] legal documents With: Address: When: Andréslisa Arellano [facility], [facility] [place], [place] [address] Business (1) Comments: Please follow-up with your Doctor or Dr. Arellano, Medical Doctor data solutions architect, call their offices and make ointment to be seen in 3 days or sooner for continued care, please purchase tigp-lsh-kmkzisz Debrox which helps breakdown earwax, take all your medications as previously prescribed, drink plenty of water for hydration, and return back to urgent care center for any worsening symptoms, concerns, or complications. Medication Information: The exam and treatment you received today in the [facility] were for an urgent problem and are not intended as complete care. It is important for you to follow up with a doctor, nurse practitioner, or physician?s surgeon's assistant for ongoing care. If your symptoms [...] we can reach you if necessary. [facility] has provided you with a complete list of medications post discharge. Please inform your patcher bowling ball/provider of your visit and for further instruction [...] Follow these instructions at home: ? Take oxjo-bfc-jatvzil and prescription medicines only as told by [...] clean them according to instructions from the loom doffer and your health care provider. Contact a [...] 12/08/2005 Document Revised: 10/12/2018 Document Reviewed: 01/11/2018 [employer] Patient Education ? 2019 [employer] Viruses or Bacteria What?s got you [...] Control and Prevention July 2014 [facility] Vital Signs Date Time Vital Sign Value Performing Clinician Facility 11-26-2024 10:27-0500 Body mass index (BMI) [Ratio] 24.74 kg/m2 Emiliano Escamilla MD Work Phone: [facility] 11-26-2024 10:27-0500 Body weight 77.11 kg Emiliano Escamilla MD Work Phone: [facility] 11-26-2024 10:27-0500 Diastolic blood pressure 73 mm[Hg] Emiliano Escamilla MD Work Phone: [facility] 11-26-2024 10:27-0500 Heart rate 87 /min Emiliano Escamilla MD Work Phone: [facility] 11-26-2024 10:27-0500 Systolic blood pressure 148 mm[Hg] Emiliano Escamilla MD Work Phone: [facility] 11-19-2024 14:27-0500 Diastolic blood pressure 82 mm[Hg] Axel Hernández [facility] 11-19-2024 14:27-0500 Heart rate 66 /min Axel Edgar [facility] 11-19-2024 14:27-0500 Mean blood pressure 103 mm[Hg] Axel Edgar [facility] 11-19-2024 14:27-0500 Respiratory rate 18 /min Axel Edgar [facility] 11-19-2024 14:27-0500 SaO2% (BldA) [Mass fraction] 95 % Axel Edgar [facility] 11-19-2024 14:27-0500 Systolic blood pressure 144 mm[Hg] Axel Edgar [facility] 11-19-2024 13:23-0500 Blood Pressure Location Axel Edgar [facility] 11-19-2024 13:23-0500 Body temperature 96.8 [degF] Axel Edgar [facility] 11-19-2024 13:23-0500 Diastolic blood pressure 69 mm[Hg] Axel Edgar [facility] 11-19-2024 13:23-0500 Heart rate 63 /min Axel Edgar [facility] 11-19-2024 13:23-0500 Mean blood pressure 92 mm[Hg] Axel Edgar [facility] 11-19-2024 13:23-0500 Respiratory rate 20 /min Axel Edgar [facility] 11-19-2024 13:23-0500 SaO2% (BldA) [Mass fraction] 99 % Axel Edgar [facility] 11-19-2024 13:23-0500 Systolic blood pressure 139 mm[Hg] Axel Edgar [facility] 11-19-2024 13:05-0500 Body temperature 97.34 [degF] Axel Hernández [facility] 11-19-2024 13:05-0500 Diastolic blood pressure 69 mm[Hg] Axel Edgar [facility] 11-19-2024 13:05-0500 Heart rate 65 /min Axel Edgar [facility] 11-19-2024 13:05-0500 Mean blood pressure 87 mm[Hg] Axel Edgar [facility] 11-19-2024 13:05-0500 Respiratory rate 16 /min Axel Edgar [facility] 11-19-2024 13:05-0500 SaO2% (BldA) [Mass fraction] 97 % Axel Edgar [facility] 11-19-2024 13:05-0500 Systolic blood pressure 122 mm[Hg] Axel Edgar [facility] 11-19-2024 12:40-0500 Body temperature 97.7 [degF] Axel Edgar [facility] 11-19-2024 12:35-0500 Respiratory rate 12 /min Axel Edgar [facility] 11-19-2024 12:30-0500 Body temperature 96.8 [degF] Axel Hernández [facility] 11-19-2024 12:30-0500 Respiratory rate 13 /min Axel Edgar [facility] 11-19-2024 12:25-0500 Body temperature 96.8 [degF] Axel Hernández [facility] 11-19-2024 12:25-0500 Respiratory rate 15 /min Axel Hernández [facility] 11-19-2024 12:20-0500 Body temperature 96.8 [degF] Axel Hernández [facility] 11-19-2024 09:55-0500 Mean blood pressure 85 mm[Hg] Axel Hernández [facility] 11-19-2024 09:52-0500 Mean blood pressure 79 mm[Hg] Axel Hernández [facility] 10-30-2024 10:36-0500 Diastolic blood pressure 67 mm[Hg] Axel Hernández [facility] 10-30-2024 10:36-0500 Heart rate 57 /min Axel Edgar [facility] 10-30-2024 10:36-0500 Mean blood pressure 86 mm[Hg] Axel Edgar [facility] 10-30-2024 10:36-0500 Systolic blood pressure 124 mm[Hg] Axel Hernández [facility] 10-30-2024 10:34-0500 Heart rate 56 /min Axel Edgar [facility] 10-30-2024 10:34-0500 SaO2% (BldA) [Mass fraction] 100 % Axel Hernández [facility] 10-30-2024 10:34-0500 Diastolic blood pressure 83 mm[Hg] Axel Hernández [facility] 10-30-2024 10:34-0500 Mean blood pressure 105 mm[Hg] Axel Hernández [facility] 10-30-2024 10:34-0500 Systolic blood pressure 148 mm[Hg] Axel Hernández [facility] 10-03-2024 10:58-0500 Body height 176.5 cm Aexl Hernández DO Work Phone: [facility] 10-03-2024 10:58-0500 Body mass index (BMI) [Ratio] 26.64 kg/m2 Axel Hernández DO Work Phone: [facility] 10-03-2024 10:58-0500 Body temperature 98.1 [degF] Axel Hernández DO Work Phone: [facility] 10-03-2024 10:58-0500 Body weight 83.01 kg Axel Hernández DO Work Phone: [facility] 08-28-2024 14:47-0400 Blood Pressure Location Davie Mocorriney [facility] 08-28-2024 14:47-0400 Diastolic blood pressure 75 mm[Hg] Davie Mourany [facility] 08-28-2024 14:47-0400 Heart rate 65 /min Davie Mourany [facility] 08-28-2024 14:47-0400 Respiratory rate 16 /min Davie Tristanurany [facility] 08-28-2024 14:47-0400 Systolic blood pressure 119 mm[Hg] Davie Tristanurany [facility] 06-11-2024 12:48-0400 Diastolic blood pressure 78 [...] Kashif Kirnus [facility] 04-20-2024 13:17-0400 Heart rate 62 /min Kashif Kirnus [facility] 04-20-2024 13:17-0400 SaO2% (BldA) [Mass fraction] 97 % Kashif Kirnus [facility] 04-20-2024 13:17-0400 Systolic blood pressure 138 mm[Hg] Kashif Kirnus [facility] 03-26-2024 14:30-0400 Diastolic blood pressure 64 mm[Hg] Axel Hernández [facility] 03-26-2024 14:30-0400 Heart rate 50 /min Axel Hernández [facility] 03-26-2024 14:30-0400 Respiratory rate 16 /min Axel Hernández [facility] 03-26-2024 14:30-0400 SaO2% (BldA) [Mass fraction] 98 % Axel Edgar [facility] 03-26-2024 14:30-0400 Systolic blood pressure 128 mm[Hg] Axel Edgar [facility] 03-26-2024 13:31-0400 Heart rate 54 /min Axel Edgar [facility] 03-26-2024 13:31-0400 SaO2% (BldA) [Mass fraction] 97 % Axel Edgar [facility] 03-26-2024 13:31-0400 Respiratory rate 16 /min Axel Edgar [facility] 03-26-2024 13:30-0400 Body temperature 97.34 [degF] Axel Edgar [facility] 03-26-2024 13:29-0400 Blood Pressure Location Axel Edgar [facility] 03-26-2024 13:29-0400 Diastolic blood pressure 70 mm[Hg] Axel Edgar [facility] 03-26-2024 13:29-0400 Mean blood pressure 88 mm[Hg] Axel Hernández [facility] 03-26-2024 13:29-0400 Systolic blood pressure 125 mm[Hg] Axel Edgar [facility] 03-26-2024 13:20-0400 Body temperature 97.52 [degF] Axel Hernández [facility] 03-26-2024 13:20-0400 Diastolic blood pressure 63 mm[Hg] Axel Hernández [facility] 03-26-2024 13:20-0400 Heart rate 54 /min Axel Hernández [facility] 03-26-2024 13:20-0400 Mean blood pressure 77 mm[Hg] Axel Edgar [facility] 03-26-2024 13:20-0400 Respiratory rate 15 /min Axel Edgar [facility] 03-26-2024 13:20-0400 SaO2% (BldA) [Mass fraction] 97 % Axel Hernández [facility] 03-26-2024 13:20-0400 Systolic blood pressure 104 mm[Hg] Axel Hernández [facility] 03-26-2024 13:15-0400 Mean blood pressure 73 mm[Hg] Axel Hernández [facility] 03-26-2024 13:15-0400 Respiratory rate 15 /min Axel Hernández [facility] 03-26-2024 13:10-0400 Mean blood pressure 72 mm[Hg] Axel Edgar [facility] 03-26-2024 13:10-0400 Respiratory rate 11 /min Axel Hernández [facility] 03-26-2024 12:55-0400 Body temperature 97.52 [degF] Axel Hernández [facility] 03-26-2024 12:50-0400 Respiratory rate 1 /min Axel Hernández [facility] 03-26-2024 09:36-0400 Blood Pressure Location Axel Hernández [facility] 03-26-2024 09:36-0400 Mean blood pressure 112 mm[Hg] Axel Hernández [facility] 03-26-2024 09:34-0400 Mean blood pressure 97 mm[Hg] Axel Hernández [facility] 03-26-2024 09:34-0400 [...] 08:11-0400 Heart rate 56 /min Axel Edgar [facility] 03-06-2024 08:11-0400 Mean blood pressure 98 mm[Hg] Axel Edgar [facility] 03-06-2024 08:11-0400 Systolic blood pressure 147 mm[Hg] Axel Edgar [facility] 03-06-2024 08:11-0400 Heart rate 57 /min Axel Edgar [facility] 03-06-2024 08:11-0400 SaO2% (BldA) [Mass fraction] 98 % Axel Edgar [facility] 03-06-2024 08:10-0400 Blood Pressure Location Axel Edgar [facility] 03-06-2024 08:10-0400 Body temperature 98.06 [degF] Axel Hernández [facility] 03-06-2024 08:10-0400 Diastolic blood pressure 73 mm[Hg] Axel Edgar [facility] 03-06-2024 08:10-0400 Mean blood pressure 92 mm[Hg] Axel Hernández [facility] 03-06-2024 08:10-0400 Systolic blood pressure 129 mm[Hg] Axel Hernández [facility] 03-06-2024 08:10-0400 Respiratory rate 18 /min Axel Hernández [facility] 11-18-2023 11:00-0500 Body height 180.34 cm Jadamary Rene Other [employer] Other 11-18-2023 11:00-0500 Body mass index (BMI) [Ratio] 25.38 kg/m2 Jadamary Rene Other [employer] Other 11-18-2023 11:00-0500 Body temperature 97.6 [degF] Jada Rene Other [employer] Other 11-18-2023 11:00-0500 Body weight 82.56 kg Jada Rene Other [employer] Other 11-18-2023 11:00-0500 Diastolic blood pressure 80 mm[Hg] Jada Rene Other [employer] Other 11-18-2023 11:00-0500 Respiratory rate 18 /min Jada Rene Other [employer] Other 11-18-2023 11:00-0500 SaO2% (BldA) [Mass fraction] 99 % Jadamary Rene Other [employer] Other 11-18-2023 11:00-0500 Systolic blood pressure 132 mm[Hg] Jada Rene Other [employer] Other 11-02-2023 13:00-0500 Body height 180.34 cm Jada Rene Other [employer] Other 11-02-2023 13:00-0500 Body mass index (BMI) [Ratio] 24.4 kg/m2 Jada Rene Other [employer] Other 11-02-2023 13:00-0500 Body weight 79.38 kg Jada Rene Other [employer] Other 11-02-2023 13:00-0500 Diastolic blood pressure 82 mm[Hg] Jada Rene Other [employer] Other 11-02-2023 13:00-0500 Respiratory rate 18 /min Jadamary Rene Other [employer] Other 11-02-2023 13:00-0500 SaO2% (BldA) [Mass fraction] 97 % Jada Rene Other [employer] Other 11-02-2023 13:00-0500 Systolic blood pressure 138 mm[Hg] Jada Rene Other [employer] Other 09-21-2023 10:00-0500 Body height 180.34 cm Jada Rene Other [employer] Other 09-21-2023 10:00-0500 Body mass index (BMI) [Ratio] 25.81 kg/m2 Jada Rene Other [employer] Other 09-21-2023 10:00-0500 Body weight 83.96 kg Jada Rene Other [employer] Other 09-21-2023 10:00-0500 Diastolic blood pressure 70 mm[Hg] Jada Rene Other [employer] Other 09-21-2023 10:00-0500 Respiratory rate 18 /min Jada Rene Other [employer] Other 09-21-2023 10:00-0500 SaO2% (BldA) [Mass fraction] 98 % Jada Rene Other [employer] Other 09-21-2023 10:00-0500 Systolic blood pressure 140 mm[Hg] Jada Rene Other [employer] Other 06-16-2023 11:00-0400 Body height 180.34 cm Jada Rene Other [employer] Other 06-16-2023 11:00-0400 Body mass index (BMI) [Ratio] 23.79 kg/m2 Jada Rene Other [employer] Other 06-16-2023 11:00-0400 Body weight 77.38 kg Jadaendy Rene Other [employer] Other 06-16-2023 11:00-0400 Diastolic blood pressure 64 mm[Hg] Jada Rene Other [employer] Other 06-16-2023 11:00-0400 Respiratory rate 18 /min Jada Rene Other [employer] Other 06-16-2023 11:00-0400 SaO2% (BldA) [Mass fraction] 98 % Jada Rene Other [employer] Other 06-16-2023 11:00-0400 Systolic blood pressure 118 mm[Hg] Jada Rene Other [employer] Other Encounters Encounter Date Encounter Type Care Provider Facility Start: 05-02-2025 ambulatory Kylah Garcia Facility :[facility] [place] Start: 11-28-2024 End: 11-28-2024 Bamboo flowsheet Jelani Chow JUMPBASTING MACHINE OPERATOR Work Phone: [facility] Start: 11-28-2024 End: 11-28-2024 Bamboo flowsheet Jelani Chow JUMPBASTING MACHINE OPERATOR Work Phone: [facility] Start: 11-28-2024 End: 11-28-2024 Postop follow up visit related to original px Jelani Chow JUMPBASTING MACHINE OPERATOR Work Phone: [facility] Comment on above: Status post carpal t unnel release (Primary Dx) Start: 11-28-2024 End: 11-28-2024 ambulatory JELANI CHOW Not Available Start: 11-26-2024 End: 11-26-2024 Bamboo flowsheet Emiliano Escamilla MD Work Phone: [facility] Start: 11-26-2024 End: 11-26-2024 Bamboo [...] Hernández [facility] Start: 11-19-2024 End: 11-19-2024 ambulatory Axel Hernández Facility:[facility] Start: 11-13-2024 ambulatory Kylah Garcia Facility :[facility] [place] Start: 11-12-2024 End: 11-12-2024 Lab Drop off Kylah Garcia [facility] Start: 11-12-2024 End: 11-12-2024 ambulatory Kylah Garcia Facility:[facility] Start: 11-01-2024 End: 11-01-2024 ambulatory Kylah Garcia Facility:[facility] Start: 10-30-2024 End: 10-30-2024 ambulatory Axel Hernández Facility:[facility] Start: 10-30-2024 End: 10-30-2024 Patient encounter procedure Axel Hernández [facility] Start: 10-03-2024 End: 10-03-2024 Bamboo flowsheet [...] encounter status Axel Hernández DO Work Phone: [facility] Start: 10-03-2024 End: 10-03-2024 ambulatory AXEL HERNÁNDEZ Not Available Start: 09-28-2024 End: 09-28-2024 Bamboo flowsheet Shala Farrell MD Work Phone: [facility] Start: 09-28-2024 End: 09-28-2024 Bamboo flowsheet Shala Farrell MD Work Phone: [facility] Start: 09-28-2024 End: 09-28-2024 Patient encounter procedure Shala Farrell MD Work Phone: [facility] Comment on above: Pain in both upper e xtremities (Primary Dx); Carpal tunnel syndrome, bilateral Start: 09-28-2024 End: 09-28-2024 ambulatory SHALA FARRELL Not Available Start: 09-10-2024 End: 09-10-2024 ambulatory Kylah Garcia Facility:[facility] Start: 08-28-2024 End: 08-28-2024 ambulatory Davie Vargas Facility:[facility] Start: 08-28-2024 End: 08-28-2024 Patient encounter procedure Davie Vargas [facility] [place] Start: 08-20-2024 End: 08-20-2024 Telephone encounter Shala Farrell MD Work Phone: [facility] Start: 08-13-2024 End: 08-13-2024 ambulatory Nathaniel Bonilla MD Facility:[facility] Start: 08-07-2024 End: 08-07-2024 ambulatory Kylah Garcia Facility:[facility] Start: 07-31-2024 End: 07-31-2024 ambulatory Kylah Garcia Facility:[facility] Start: 07-24-2024 End: 07-24-2024 ambulatory Kylah Garcia Facility:[facility] Start: 07-23-2024 ambulatory Davie Vargas Facilit y:[facility] [place] Start: 07-05-2024 ambulatory Kylah Garcia Facility:[facility] Start: 07-03-2024 End: 07-03-2024 ambulatory Kylah Garcia Facility:[facility] Latasha hernández Start: 06-20-2024 End: 06-20-2024 ambulatory AXEL HERNÁNDEZ Not Available Start: 06-11-2024 End: 06-11-2024 ambulatory XXXX NONE Facility:[facility] Start: 06-11-2024 End: 06-11-2024 Patient encounter procedure Kashif Barnett [facility] Start: 05-30-2024 End: 05-30-2024 ambulatory Dixon Dubose Facility:[facility] Start: 05-30-2024 End: 05-30-2024 Patient encounter procedure Dixon Dubose [facility] Start: 05-21-2024 End: 05-21-2024 ambulatory MD Kashif Barnett Facility:[facility] Start: 05-21-2024 End: 05-21-2024 Patient encounter procedure Kashif Barnett [facility] Start: 05-03-2024 End: 05-03-2024 ambulatory MD Kylah Garcia Facility: [facility] Start: 05-01-2024 End: 05-01-2024 ambulatory MD Kashif Barnett Facility:[facility] Start: 05-01-2024 End: 05-01-2024 Patient encounter procedure Kashif Barnett [facility] Start: 05-01-2024 End: 05-01-2024 Lab Drop off Kylah Garcia [facility] Start: 05-01-2024 End: 05-01-2024 ambulatory MD Kylah Garcia Facility:[facility] Latasha hernández Start: 04-20-2024 End: 04-20-2024 ambulatory MD Kashif Barnett Facility:[facility] Start: 04-20-2024 End: 04-20-2024 Patient encounter procedure Kashif Barnett [facility] Start: 04-04-2024 End: 04-04-2024 ambulatory AXEL HERNÁNDEZ Not Available Start: 03-26-2024 End: 03-26-2024 Admission to same day surgery center Axel Hernández [facility] Start: 03-26-2024 End: 03-26-2024 ambulatory Axel Hernández Facility:[facility] Start: 03-20-2024 End: 03-20-2024 ambulatory MD Kylah Garcia Facility:[facility] Latasha springe Start: 03-08-2024 End: 03-08-2024 ambulatory MD Kylah Garcia Facility: [facility] Start: 03-06-2024 End: 03-06-2024 ambulatory Axel Hernández Facility:[facility] Start: 03-06-2024 End: 03-06-2024 Patient encounter procedure Axel Hernández [facility] Start: 02-15-2024 End: 02-15-2024 ambulatory AXEL HERNÁNDEZ Not Available Start: 02-15-2024 End: 02-15-2024 ambulatory AXEL HERNÁNDEZ Not Available Start: 02-02-2024 End: 02-02-2024 ambulatory MD Kylah Garcia Facility: [facility] Start: 12-06-2023 End: 12-06-2023 ambulatory Jada Rene Other [employer] Other Start: 12-06-2023 Telephone encounter Jada ORDOÑEZ [facility] Start: 12-02-2023 End: 12-02-2023 ambulatory Jada Rene Other [employer] Other Start: 12-02-2023 Telephone encounter Jadaendy Rene [facility] Start: 12-01-2023 End: 12-01-2023 Lab Drop off Kylah Garcia [facility] Start: 12-01-2023 End: 12-01-2023 ambulatory MD Kylah Garcia Facility:[facility] Start: 12-01-2023 ambulatory MD Kylah Garcia Facility :[facility] [place] Start: 11-18-2023 End: 11-18-2023 ambulatory Jada Rene Other [employer] Other Start: 11-18-2023 Office outpatient vi sit 25 minutes Jada Edgard [facility] [place] Start: 11-02-2023 End: 11-02-2023 ambulatory Jadaendy Rene [employer] Other Start: 11-02-2023 Office outpatient vi sit 25 minutes Jadaendy Rene [facility] [place] Start: 11-02-2023 Telephone encounter Jadamary Rene [facility] [place] Start: 10-28-2023 End: 10-28-2023 ambulatory Jadaendy eRne Other [employer] Other Start: 10-28-2023 Telephone encounter Jadamary Rene [facility] [place] Start: 09-30-2023 End: 09-30-2023 Nurse Triage Venessa Riggins RN NURSE CLEAT LAYER Comment on above: Refill Request Start: 09-30-2023 Telephone encounter Jada Edgard [facility] [place] Start: 09-21-2023 End: 09-21-2023 ambulatory Jadaendy Rene Other [employer] Other Start: 09-21-2023 Office outpatient vi sit 25 minutes Jada Rene [facility] [place] Start: 08-29-2023 End: 08-29-2023 ambulatory Jada Rene Other [employer] Other Start: 08-29-2023 Telephone encounter Jada eRne [facility] [place] Start: 08-26-2023 End: 08-26-2023 ambulatory Jada Rene Other [employer] Other Start: 08-26-2023 Telephone encounter Jada Rene [facility] [place] Start: 08-08-2023 End: 08-08-2023 ambulatory Jada Rene Other [employer] Other Start: 08-08-2023 Telephone encounter Jada Rene [facility] [place] Start: 07-27-2023 End: 07-27-2023 ambulatory Jada Rene Other [employer] Other Start: 07-27-2023 Telephone encounter Jada Rene [facility] [place] Start: 06-16-2023 End: 06-16-2023 ambulatory Jada Rene [employer] Other Start: 06-16-2023 Office outpatient ne w 45 minutes Jada Rene [facility] [place] Start: 06-16-2023 Telephone encounter Jada [facility] [place] Procedures Date Procedure Procedure Detail Performing Clinician Start: 11-19-2024 [facility] CAPILLARY GLUCO SE POC Axel Hernández DO [...] procedure 12/26/2024 1:45 PM EST Office [facility] [address] [place] [address] Jelani Chow, JUMPBASTING MACHINE OPERATOR [address] [place], [place] [id number] [facility] Start: 11-28-2024 End: 11-28-2024 Patient encounter procedure [facility] Comment on above: Arrived Start: 11-26-2024 End: 11-26-2024 Patient encounter procedure 11/26/2024 10:30 AM EST Office Visit [facility] [place] [address] [place] [address] Emiliano Escamilla MD [address] [facility] [address] [place] [address] Arrived [facility] [place] Comment on above: Arrived Start: 10-03-2024 End: 10-03-2025 ECG 12 lead ECG 12 lead ECG Routine Pre-op testing Expected: 10/03/2024 (Approximate), Expires: 10/03/2025 [facility] Work Phone: Comment on above: Expected: 10/03/2024 (Approximate), Expires: 10/03/2025 Start: 10-03-2024 End: 10-03-2024 Patient encounter procedure 10/03/2024 10:45 AM EST Office Visit [facility] [address] [place] [address] Axel Hernández, [address] [place] [address] Right hand pain (Primary Dx); Arm weakness [facility] Comment on above: Right hand pain (Holly ayaan Dx); Arm weakness Start: 07-15-2024 Influenza vaccination Influenza Vacc ine (#1) [facility] Start: 07-15-2023 Influenza vaccination Influenza Vacc ine (#1) [facility] Start: 11-14-2022 Advance Directive Discussion Advance Directive Discussion [facility] Start: 11-14-2022 Depression Assessment Depression Ass essment [facility] Start: 03-31-2016 Pneumococcal Vaccine : 65+ (2 - PPSV23 or PCV20) Pneumococcal Vaccine: 65+ (2 - PPSV23 or PCV20) [facility] Start: 03-31-2016 Pneumococcal Vaccine : 65+ Years (2 of 2 - PPSV23 or PCV20) Pneumococcal Vaccine: 65+ Years (2 of 2 - PPSV23 or PCV20) [facility] Start: 03-24-2016 Hepatitis B surface antibody level LDL Cholesterol [facility] Start: 09-24-2015 Hemoglobin A1c/Hemoglobin.total in Blood HbA1C [facility] Start: 08-01-2015 3 comp foot exam completed Diabetic Foot Exam [facility] Start: 07-25-2015 Hepatitis B screening Urine Albumin:Creatinine Ratio [facility] Start: 02-01-2015 Urine microalbumin profile DTaP,Tdap,Td Vaccine (1 - Tdap) [facility] Start: 10-24-2013 Shingrix Vaccine (2 of 3) Shingrix Vaccine (2 of 3) [facility] Start: 09-14-2012 Hepatitis C antibody , confirmatory test Dilated Retinal Exam [facility] Start: 2002 RSV Vaccine (1 - 1-d ose 60+ series) RSV Vaccine (1 - 1-dose 60+ series) [facility] Start: 1940 Covid-19 Vaccine (#1) Covid-19 Vacci ne (#1) [facility] Immunizations Immunization Date Immunization Notes Care Provider Fa cility 09-29-2024 influenza virus vaccine, unspecified formulation Axel Hernández DO Work Phone: [facility] 09-21-2023 Prevnar 20 Jada Rene Other [facility] 08-19-2023 Flu Shot - Documentation Purposes Only Jada Rene Other [employer] Other 08-19-2023 influenza virus vaccine, unspecified formulation Kylah Garcia [facility] 08-14-2022 influenza, seasonal, injectable Jada Rene Other [employer] Other 03-31-2015 pneumococcal conjuga te vaccine, 13 valent Jada Rene Other [facility] 08-02-2014 influenza, high dose seasonal, preservative-free Venessa Riggins RN [facility] 08-02-2014 influenza virus vaccine, unspecified formulation Venessa Riggins RN [facility] 08-29-2013 zoster vaccine, live Venessa terrell RN [facility] 08-09-2013 influenza virus vaccine, unspecified formulation Venessa Riggins RN [facility] 07-31-2012 influenza virus vaccine, unspecified formulation Venessa Riggins RN [facility] Work Phone: 03-07-2012 tetanus and diphther ia toxoids, adsorbed, preservative free, for adult use (2 Lf of tetanus toxoid and 2 Lf of diphtheria toxoid) Venessa Riggins RN [facility] Work Phone: 08-07-2011 influenza virus vaccine, unspecified formulation Venessa Riggins RN [facility] Work Phone: NEGATED: Highlighted row has not occurred!08-28-2024 influenza virus vaccine, unspecified formulation Davie Vargas [facility] General Surgery [place] Payers Date Payer Category Payer Medicare (Managed Care) [employer] [id number] 2023 Unknown [employer] D [employer] [id number] 2023-Present [address] [place] [address] [id number] [id number] 2023 Unknown [id number] 2.16.840.1.042181.19 2023 Medicare [id number] 2.16.840.1.437521.19 2023 Self-pay 2023 Medicare [id number]. 1.13.159. 2.7.3.260276.315 1942 Unknown [id number] 2.16.840.1.984807.3.579. 2.72 1942 Unknown [id number] 2.16.840.1.583438.3.579. 2.72 1942 Unknown [id number] 2.16.840.1.134390.3.579. 2.72 1942 Unknown [id number] 2.16.840.1.072787.3.579. 2.727 1942 Unknown [id number] 2.16.840.1.945048.3.579. 2.72 1942 Unknown [id number] 2.16.840.1.808193.3.579. 2.727 1942 Unknown [id number] 2.16.840.1.886132.3.579. 2.72 1942 Unknown [id number] 2.16.840.1.951644.3.579. 2.727 1942 Unknown [id number] 2.16.840.1.316503.3.579. 2.72 1942 Unknown [id number] 2.16.840.1.672935.3.579. 2. 1942 Unknown [id number] 2.16.840.1.840407.3.579. 2. 1942 Unknown [id number] 2.16.840.1.624123.3.579. 2. 1942 Unknown [id number] 2.16.840.1.090553.3.579. 2. 1942 Unknown [id number] 2.16.840.1.544243.3.579. 2. 1942 Unknown [id number] 2.16.840.1.276994.3.579. 2.196 1942 Unknown [id number] 2.16.840.1.861271.3.579. 2 1942 Unknown [id number] 2.16.840.1.991903.3.579. 2 1942 Unknown [id number] 2.16.840.1.580589.3.579. 2 1942 Unknown [id number] 2.16.840.1.012360.3.579. 2 1942 Unknown [id number] 2.16.840.1.151681.3.579. 2 1942 Unknown [id number] 2.16.840.1.304703.3.579. 2 1942 Unknown [id number] 2.16.840.1.747962.3.579. 2. 1942 Unknown [id number] 2.16.840.1.026321.3.579. 2 1942 Unknown [id number] 2.16.840.1.264741.3.579. 2 1942 Unknown [id number] 2.16.840.1.914908.3.579. 2.727 1942 Unknown [id number] 2.16.840.1.165208.3.579. 2.72 1942 Unknown [id number] 2.16.840.1.675505.3.579. 2.72 1942 Unknown [id number] 2.16.840.1.035605.3.579. 2. 1942 Unknown [id number] 2.16.840.1.792004.3.579. 2.72 1942 Unknown [id number] 2.16.840.1.426827.3.579. 2. 1942 Unknown [id number] 2.16.840.1.074124.3.579. 2. 1942 Unknown [id number] 2.16.840.1.749318.3.579. 2.1258 1942 Unknown [id number] 2.16.840.1.924029.3.579. 2.1258 1942 Unknown [id number] 2.16.840.1.672570.3.579. 2.1258 1942 Unknown [id number] 2.16.840.1.140537.3.579. 2.1258 1942 Unknown [id number] 2.16.840.1.825254.3.579. 2.1258 1942 Unknown [id number] 2.16.840.1.528085.3.579. 2.1258 1942 Unknown [id number] 2.16.840.1.604160.3.579. 2.1258 1942 Unknown [id number] 2.16.840.1.727468.3.579. 2.1258 1942 Unknown [id number] 2.16.840.1.828791.3.579. 2.125 1942 Unknown [id number] 2.16.840.1.837506.3.579. 2.727 Medicare [id number] 2.16.840.1.084278.19 Unknown [id number] 2.16.840.1.716384.3.579. 2.531 Unknown [id number] 2.16.840.1.078751.3.579. 2.531 Social History Date Type Detail Facility Start: 06-20-2024 End: 11-28-2024 Sex Assigned At [facility] Start: 12-01-2023 End: 02-15-2024 Tobacco smoking status NHIS Never smoked tobacco [facility] Start: 06-28-2022 Alcohol intake Current drinke r of alcohol (finding) [facility] Start: 06-28-2022 End: 11-28-2024 Alcohol intake [facility] Start: 1940 Sex Assigned At Not on file [facility] Tobacco smoking status Never [facility] [place] Start: 02-15-2024 Tobacco use and exposure Smokeless tobacco non-user [facility] Procedure Code Equipment Code Equipment Origin al Text Equipment Identifier Dates Test blood sugar(s) 2 times daily. Dx: non. Insulin: No dx 250.00 Start: 08-24-2013 Comment on above: Test blood sugar(s) 2 times daily. Dx: non. Insulin: No dx 250.00 Functional Status Date Assessment Result Facility 10-30-2024 Functional Status No [facility] 08-28-2024 Functional Status N/A [facility] General Surgery [place] 06-11-2024 Functional Status N/A [facility] 05-30-2024 Functional Status No [facility] 04-20-2024 Functional Status N/A [facility] 03-06-2024 Functional Status No [facility] Clinical Notes 03-10-2010 to 11-28-2024 Jelani Chow NP - 11/28/2024 1:00 PM Soto Escamilla MD - 11/26/2024 10:30 AM EST Note Date & Type Note Facility 11-28-2024 History of Present illness Narrative Images from the original note were not included. HISTORY OF PRESENT ILLNESS: Dariel Zabala is an 84 y.o. @ male. 1ST PO LT CTR 11/19/24 (9 DAYS) @ [facility] ([facility] PAIN DIFFUSE IN HAND/WRIST. KEEPS COVERED [...] new symptoms develop for requiring urgent evaluation. Jelain Chow APRN-ACTUARIAL MATHEMATICIAN documented in this encounter [facility] 11-26-2024 History of Present illness Narrative Images from the original note were not included. Subjective Patient ID: Dariel Zabala is a 84 y.o. male who presents for Ear Problem (Hearing aid battery in ear.) Pt seen in [facility] ED last Tuesday and DARNELL battery noted in RT EAC No family history on file. Active Ambulatory Problems Diagnosis Date Noted ASCVD (arteriosclerotic cardiovascular disease) ([facility]/HCC) 11/26/2024 Atrial fibrillation (CMS/HCC) 08/22/2014 Back spasm [...] NECK SURGERY TRIGGER FINGER RELEASE Right 03/26/2024 [facility] (LF) No Known Allergies Current Outpatient Medications [...] NOSTRIL ONCE DAILY AT BEDTIME [DISCONTINUED] HYDROcodone-acetaminophen ([place]) 5-325 MG tablet [DISCONTINUED] tiZANidine (Zanaflex) 4 [...] Dr Garcia notified. documented in this encounter [facility] 11-19-2024 Note Progress Note-Physic carlos Patient: DARIEL ZABALA Age: 84 years Sex: Male : 1940 Associated Diagnoses: None Author: Chau Lou MD Postoperative Information Postoperative disposition: Postoperative disposition: To PACU. Optimetrix number: Optimetrix number [id number]. Anesthetic utilized: General. Health Status Allergies: Allergic [...] when meets criteria ( To home ). [facility] Comment on above: Result Comment: Elec tronically Signed By: Chau Lou MD\.br\Date and Time Signed: 11/19/24 15:19 EST 11-19-2024 Evaluation + Plan note Extrac bijal from: Title:ANES Post-operative Note---General Author: Chau Lou MD Date:11/19/24 Plan Transfer/Discharge: Transfer/Discharge Discharge when meets criteria ( To home ). Extracted from: Title:ANES Pre-operative Note 2022 Author:Chau Goode Date:11/19/24 Plan [place] [employer] of Anesthesiologists (ASA) physical status classification: Class III. Anesthetic Preoperative Plan: Anesthesia General. Future Appointments Appointment Date:12/12/2024 10:15:00 AM Scheduled Provider:Dixon Dubose PA-C [facility] Type:Cardiology Follow Up (FT) Appointment Date:05/02/2025 08:00:00 AM Scheduled Provider: [facility]FM Medicare Wellness Subsequent Future Scheduled Tests Laboratory* Basic Metabolic Panel 11/13/24 [facility] 01-06-2025 NotePatient Education - Text [place] [facility] CARPAL TUNNEL RELEASE INSTRUCTIONS [...] ???pins and needles??? to resolve. Patient Signature xAel Hernández, DO [facility] [address] [place] [address] Reviewed: 04-22[facility]01-06-2025 NoteProgress Note-Physician Patient: DARIEL ZABALA Age: 84 [...] daily, # 90 tab(s), Refills(s) 0, Pharmacy: [facility]/pharmacy #[id number], 178, cm, 06/11/24 12:53:00 EDT, Height/Length Dosing, 82, kg, 06/11/2412:56:00 EDT, Weight Dosing Sodium Chloride 1000 mg oral tablet, soluble: See Instructions, 30 tab(s), Refill(s) 0, Take one tablet daily, [facility]/pharmacy #[id number], 178.6, cm, 11/01/24 9:21:00 EST, Height/Length Dosing, 81.3, kg, 11/01/24 9:21:00 EST, Weight Dosing Synthroid 25 mcg(0.025 mg) Tab: See Instructions, TAKE 1 TABLET DAILY ON AN EMPTY STOMACH, # 3 tab(s), Refills(s) 0, Pharmacy: [facility]/pharmacy #[id number], 178, cm, 08/07/24 10:59:00 EDT, Height/Length Dosing, 78.2, kg, 08/07/24 10:59:00 EDT, Weight Dosing atenolol 25 mg Tab: See Instructions, take 1/2 tab daily, # 90 tab(s), Refills(s) 1, Pharmacy: [facility], 178, cm, 09/10/24 13:01:00 EDT, Height/Length Dosing, 80.1, kg, 09/10/24 13:01:00 EDT, Weight Dosing finasteride 5 mg Tab: 5 mg = 1 tab(s), Oral, Daily, # 90 tab(s), Refills(s) 1, [id number] 178.6, cm, 11/01/24 9:21:00 EST, Height/Length Dosing, 81.3, kg, 11/01/24 9:21:00 EST, Weight Dosing fluticasone Nasal 0.05 mg/inh [place]: See Instructions, 48 mL, Refill(s) 1, USE 1 SPRAY IN EACH NOSTRIL TWICE A DAY, [facility], 178, cm, 08/28/24 14:50:00 EDT, Height/Length Dosing, 82.2, kg, 08/28/24 14:50:00 EDT, Weight Dosing gabapentin 300 mg Cap: 300 mg = 1 cap(s), Oral, Daily, # 90 cap(s), Refills(s) 1, Pharmacy: [facility], 178, cm, 07/03/24 10:05:00 EDT, Height/Length Dosing, 80.8, kg, 07/03/2410:05:00 EDT, Weight Dosing glimepiride 2 mg Tab: See Instructions, TAKE 1 TABLET DAILY, # 3 tab(s), Refills(s) 0, Pharmacy: [facility], 178, cm, 08/07/24 10:59:00 EDT, Height/Length Dosing, 78.2, kg, 08/07/24 10:59:00 EDT, Weight Dosing omeprazole 40 mg Cap-DR: 40 mg = 1 cap(s), Oral, Daily, # 90 cap(s), Refills(s) 1, Pharmacy: [facility], 178, cm, 08/28/24 14:50:00 EDT, Height/Length Dosing, 82.2, kg, 08/28/24 14:50:00 EDT, Weight Dosing pravastatin 40 mg Tab: 40 mg = 1 tab(s), Oral, Daily, # 90 tab(s), Refills(s) 3, Pharmacy: [facility], 178, cm, 09/10/24 13:01:00 EDT, Height/Length Dosing, 80.1, kg, 09/10/24 13:01:00 EDT, Weight Dosing sildenafil 100 mg Tab: 100 mg = 1 tab(s), Oral, Daily, PRN for erectile dysfunction, 1 hour before sexual activity, # 5 tab(s), Refills(s) 0, Pharmacy: [facility], 178, cm, 07/03/24 10:05:00 EDT, Height/Length Dosing, 80.8, kg, 07/03/24 10:05:00 EDT,... tamsulosin 0.4 mg Cap: 0.4 mg = 1 cap(s), Oral, Daily, # 90 cap(s), Refills(s) 1, Pharmacy: [facility], 178, cm, 09/10/24 13:01:00 EDT, Height/Length Dosing, 80.1, kg, 09/10/2413:01:00 EDT, Weight Dosing Documented Medications Documented CoQ10: See Instructions, PRN Prophylaxis, Refills(s) 0 D3: See Instructions, Oral Daily- patient states he takes 500 once a day, Refills(s) 0 Jantoven 5 mg oral tablet: 5 mg = 1 tab(s), Oral, Daily, Refills(s) 0, Blood Thinner (more content not included)...[facility]Result Comment: Electronically Signed By: Carmine COHN, Chau Pineda\.br\Date and Time Signed: 11/19/24 11:51 [id number] Hospital Discharge instructions Patient Education 11/12/2024 12:08:21 Hernández - Carpal Tunnel Release Instructions (Custom) (CUSTOM) [place] [facility] CARPAL TUNNEL RELEASE INSTRUCTIONS [...] resolve. Patient SignatureMiclolis Hernández DO [facility] [address] [place] [id number] Reviewed: 04-2211/19/2024 13:10:26 Post Op Patient Instructions - FT (Custom) (CUSTOM) Follow Up Care 10/03/2024 14:28:43 With:GORDO Weller Address: [address] [place], [place] [address]- Business (1) When:11/28/2024 13:00:00 Comments:Keep scheduled appointment. Call for any problems. [facility] 12-30-2024 NotePatient Education - Text [place] [facility] CARPAL TUNNEL RELEASE INSTRUCTIONS [...] Signature Axel T. Hernández, DO [facility] [address] [place] [id number] Reviewed: 04-22[facility]12-30-2024 NoteNurse Consultation Note Reason for Visit Pt [...] Daily, 1 refills fluticasone Nasal 0.05 mg/inh [place], See Instructions, Self Directed gabapentin 300 mg [...] 03/31/2015 Recorded influenza virus vaccine, inactivated 08/02/2014 [facility]11-15-2024 History of Present illness Narrative* Shala Farrell MD - 09/28/2024 9:30 AM EST [facility] Patient: Dariel Zabala [address], [address] , Sex: 1940, Male [place], [place] [address] Height: 180 cm Ref Phys: Hernández fax [...] Doub=doublet; Fasc=fasciculation; FFE=full for effort; Fib=fibrillation; Myokym=myokymia; [place]=myotonic potential; N,0=normal; NR=no response; Polyph=polyphasia; Pos=positive [sharp] [...] available for comparison. Shala Farrell M.D. Diplomate, [place] Board of Psychiatry and Neurology (neurology, epilepsy, sleep medicine) Diplomate, [place] Board of Clinical Neurophysiology Diplomate, [place] Board of Preventive Medicine (clinical informatics) . documented in this encounterSaint Luke's East [id number] Telephone encounter Note* Telephone Encounter - Miguel Moe - 08/20/2024 10:50 AM EDT LVM to RC in regard to BUE referral from Dr. Hernández--Approved to schedule--25.00 co-pay will be applied to toward OOP. [facility] [id number] Miscellaneous Notes* Telephone Encounter - Miguel Moe - 08/20/2024 10:50 AM EDT LVM to RC in regard to BUE referral from Dr. Hernández--Approved to schedule--25.00 co-pay will be applied to toward OOP. documented in this encounterSaint Luke's East [id number] NoteEchocardiology Procedure Exam Date/Time Accession # Ordering Dr. Nava Transthoracic 05/01/2024 15:00 EDT [id number] Kashif Barnett MD Complete CPT code 71808 [id number] Reason for Exam (Echo Transthoracic Complete) AFIB, Syncope R55;Other (please specify) Report Version: 1 Study ID: [id number] [facility] [address] [place] [address] Adult Echocardiogram Report Name: DARIEL ZABALA Study Date: 05/01/2024, 2: 02 PM Patient Location[facility] : 1940 (MM/DD/YYYY) Gender: Male Age: [...] Signed by: Jason Vaughn MD Transcribed by: [facility] Technologist: [facility]05-13-2024 Hospital Discharge instructions Patient Education [...] condition: Doing activities that require a strong structures assembler. Having rheumatoid arthritis, gout, or diabetes. Being [...] splint on your hand. General instructions Take eaxo-civ-ddhxfdr and prescription medicines only as told by [...] Document Reviewed: 03/17/2020 Elsevier Patient Education 2022 [employer]. Follow Up Care 03/01/2024 15:40:29 With:GORDO Weller Address: [address] [place] [address] Business (1) When:04/04/2024 10:15:00 Comments:Keep scheduled appointment [facility]05-07-2024 Note [id number] [facility] 11-18-2023 Evaluation note* Encounter Date Diagnosis Assessment [...] sodium level at upcoming appt in January [employer] Other 12-20-2023 Evaluation note* Encounter Date Diagnosis [...] further dizziness symptoms would recommend f/u with clinical assistant as well. [employer] Other 11-17-2023 Evaluation note* Encounter Date Diagnosis Assessment Notes Treatment Notes Treatment Clinical Notes Sep, Type 2 diabetes mellitus (ICD-10 - E11.9) [employer] Other 11-17-2023 Miscellaneous Notes* Telephone Encounter - Venessa Riggins RN - 09/30/2023 12:29 PM EST Called patient back and reviewed plan from his call with Nurse Mate Chief at 11:36 AM. See my note Patient already called his PCP as advise and waiting call back for scheduling. He was hospital discharged on 08/26 for cognitive problems and low sodium. He finished his pills for low sodium today. NOC closing was given Conferenced him to [facility] for an appt with nephrology as [...] have any questions, you can call Nurse rn care transition back. * Telephone Encounter - Venessa Riggins RN - 09/30/2023 11:36 AM EST Patient calling with request for physician referral: Patient referred to nephrology and primary care Department. Patient denies any new or worsening symptoms of which a provider is not aware: Yes. Patient was discharged from [facility] on 08/26 for low [...] appt center and then call dropped. My [place] and [employer] lost connection. NOC closing was given GO TO THE EMERGENCY ROOM OR CALL 911 IF: * You develop any new symptoms * Your condition worsens * You are concerned or anxious about your condition for any other reason. If you have any questions, you can call Nurse rn care transition back. [facility] Evaluation note* Encounter Date Diagnosis Assessment Notes Treatment Notes Treatment Clinical Notes Sep, Hyponatremia (ICD-10 - E87.1) Recent sodium 136 at low end of normal, given significance of symptoms and recommendation of hospital for f/u will refer to nephrology patient requesting [place] Sep, Anticoagulant long-term use (ICD-10 - Z79.01) Follows with INR clinic through [facility]. Sep, Atrial fibrillation (ICD-10 - I48.91) Appears in NSR today, anticoagulated on Warfarin Sep, Hypothyroidism (ICD-10 - E03.9) Recent TFTs in normal range, clinically euthyroid, continue current dose of LT4 Sep, Type 2 diabetes mellitus (ICD-10 - E11.9) Recent a1c in good range at 5.6%, continue current dose of glimepiride. Sep, Immunization due (ICD-10 - Z23) [employer] Other 10-16-2023 Evaluation note* Encounter Date Diagnosis Assessment Notes Treatment Notes Treatment Clinical Notes Aug, Hyponatremia (ICD-10 - E87.1) [employer] Other 08-03-2023 Evaluation note* Encounter Date Diagnosis Assessment Notes Treatment Notes Treatment Clinical Notes Jun, Atrial fibrillation (ICD-10 - I48.91) Rate controlled, mild bradycardia but asymptomatic. Will continue current dose of atenolol. He is anticoagulated on Coumadin with goal INR 2-3, he is due for INR check. Will refer to coumadin clinic through [facility] Jun, Anticoagulant long-term use (ICD-10 - Z79.01) Jun, Hearing loss (ICD-10 - H91.90) Referral to local hydrostatic tubing tester 03 Aug, 2023 Dermatitis (ICD-10 - L30.9) Can trial topical steroid PRN, discussed may be secondary to dry skin. Recommend daily use of lotion Jun, Hypothyroidism (ICD-10 - E03.9) Due for TFTs prior to next visit Jun, Type 2 diabetes mellitus (ICD-10 - E11.9) Due for a1c prior to next visit Jun, BPH (benign prostatic hyperplasia) (ICD-10 - N40.0) [employer] Other 08-03-2023 Reason for referral (narrative)* Reason Medication managemen t through [facility] - Coumadin management with INR goal 2-3 Diagnosis 1 Anticoagulant long-t erm use (Z79.01) Referral Organization [facility] Family Rodo Brown Referring Provider First Name Jada Referring Provider Last Name [facility] Referring Provider Specialty [facility] Referred Organization [facility] Referred Address [address], [place],[address] Referred Provider Specialty Milvia felix Referral Priority Routine General Notes Gabrielle Reid 01/2023 01:34:29 PM >this is an order not a referral, clinical informed and will fax order over for standing order INR to [facility] Reason * FU 06/29 CALL he aring loss, issue with hearing aids Diagnosis 1 Hearing loss (H91.90 ) Referral Organization [facility] Family Rodo Brown Referring Provider First Name Jada Referring Provider Last Name Rene Referring Provider Specialty [facility] Referred Organization [facility] Referred Address ,[place], [place],[address] Referred Provider Specialty Audiologists Referral Priority Routine General Notes Gabrielle Reid 01/2023 01:28:34 PM >referral received and faxed [employer] Other 04-27-2010 History of Past illness Narrative* Problem Noted Date Diagnosed Date Resolved Date Myalgia 03/10/2010 03/01/2011 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 and other lower urinary tract symptoms (LUTS) 08/11/2006 01/11/2013 Elevated prostate specific antigen (PSA) 03/07/2012 documented as of this encounter (statuses as of 09/30/2023) [facility] No data available for this section [facility] Future Appointments Appointment Date:03/08/2024 01:00:00 PM Scheduled Provider:Kylah Garcia MD Location:[facility] Appointment Type: Open Appointment Date:03/26/2024 01:45:00 PM Scheduled Provider: Location:[facility] Appointment Type:Surgery FT Appointment Date:05/01/2024 09:00:00 AM Scheduled Provider: Location:[facility] Appointment Type:FM Lab Draw Appointment Date:05/03/2024 08:00:00 AM Scheduled Provider: Location:[facility] Appointment Type: Medicare Wellness Subsequent Appointment Date:05/03/2024 09:00:00 AM Scheduled Provider:Kylah Garcia MD Location:[facility] Appointment Type: Open Future Scheduled Tests Laboratory* PSA Screen, Total 02/02/24 * CBC w/ Auto Diff 02/02/24 * Comprehensive Metabolic Panel 02/02/24 * Lipid Panel 02/02/24 [facility] Future Appointments Appointment Date:05/01/2024 09:00:00 AM Scheduled Provider: Location:[facility] Appointment Type:FM Lab Draw Appointment Date:05/03/2024 08:00:00 AM Scheduled Provider: Location:[facility] Appointment Type: Medicare Wellness Subsequent Appointment Date:05/03/2024 09:00:00 AM Scheduled Provider:Kylah Garcia MD Location:[facility] Appointment Type: Open Future Scheduled Tests Laboratory* PSA Screen, Total 02/02/24 * CBC w/ Auto Diff 02/02/24 * Comprehensive Metabolic Panel 02/02/24 * Lipid Panel 02/02/24 [facility] Future Appointments Appointment Date:05/01/2024 09:00:00 AM Scheduled Provider: Location:[facility] Appointment Type:FM Lab Draw Appointment Date:05/03/2024 08:00:00 AM Scheduled Provider: [facility] App[facility] Type: Medicare Wellness Subsequent Appointment Date:05/03/2024 09:00:00 AM Scheduled Provider:Kylah Garcia MD Location:[facility] Appointment Type:FM Open Appointment Date:05/25/2024 01:00:00 PM Scheduled Provider:Kashif Barnett MD [facility] Type:Cardiology Follow Up (FT) Future Scheduled Tests Laboratory* PSA Screen, Total 02/02/24 * CBC w/ Auto Diff 02/02/24 * Comprehensive Metabolic Panel 02/02/24 * Lipid Panel 02/02/24 Radiology* Echo Transthoracic Complete 04/20/24 [facility] Future Appointments Appointment Date:05/03/2024 08:00:00 AM Scheduled Provider: Location:[facility] Appointment Type: Medicare Wellness Subsequent Appointment Date:05/03/2024 09:00:00 AM Scheduled Provider:Kylah Garcia MD Location:[facility] Appointment Type: Open Appointment Date:05/21/2024 10:00:00 AM Scheduled Provider: [facility] Type:CV Holter/Event (FT) Appointment Date:05/25/2024 01:00:00 PM Scheduled Provider:Kashif Barnett MD [facility] App[facility] Type:Cardiology Follow Up (FT) [facility] Future Appointments Appointment Date:05/30/2024 03:45:00 PM Scheduled Provider:Kashif Barnett MD [facility]:Cardiology Follow Up (FT) Appointment Date:11/01/2024 09:15:00 AM Scheduled Provider:Kylah Garcia MD [facility] App[facility] Type: Open Appointment Date:05/02/2025 08:00:00 AM Scheduled Provider: Location:[facility] Appointment Type: Medicare Wellness Subsequent [facility] Future Appointments Appointment Date:08/31/2024 01:00:00 PM Scheduled Provider:Kashif Barnett MD [facility] App[facility]ment Type:Cardiology Follow Up (FT) Appointment Date:11/01/2024 09:15:00 AM Scheduled Provider:Kylah Garcia MD Location:[facility] Appointment Type: Open Appointment Date:05/02/2025 08:00:00 AM Scheduled Provider: Location:[facility] Appointment Type:FM Medicare Wellness Subsequent [facility] Future Appointments Appointment Date:11/01/2024 09:15:00 AM Scheduled Provider:Kylah Garcia MD Location:[facility] Appointment Type:FM Open Appointment Date:12/11/2024 01:00:00 PM Scheduled Provider:Dixon Dubose PA-C Location:[facility] Appointment Type:Cardiology Follow Up (FT) Appointment Date:05/02/2025 08:00:00 AM Scheduled Provider: Location:[facility] Appointment Type: Medicare Wellness Subsequent [facility] evaluation + Plan note Future Appointments Appointment Date:11/01/2024 09:15:00 AM Scheduled Provider:Kylah Garcia MD Location:[facility] Appointment Type:FM Open Appointment Date:11/19/2024 02:15:00 PM Scheduled Provider: Location:[facility] Appointment Type:Surgery FT Appointment Date:12/12/2024 10:15:00 AM Scheduled Provider:Dixon Dubose PA-C [facility] Appointment Type:Cardiology Follow Up (FT) Appointment Date:05/02/2025 08:00:00 AM Scheduled Provider: Location:[facility] Appointment Type: Medicare Wellness Subsequent [facility] evaluation + Plan note Future Appointments Appointment Date:11/19/2024 02:15:00 PM Scheduled Provider: Location:[facility] Appointment Type:Surgery FT Appointment Date:12/12/2024 10:15:00 AM Scheduled Provider:Dixon Dubose PA-C Location:[facility] Appointment Type:Cardiology Follow Up (FT) Appointment Date:05/02/2025 08:00:00 AM Scheduled Provider: Location:[facility] Appointment Type: Medicare Wellness Subsequent [facility] Other [facility] note* Diagnosis Pain in both [...] History MAU cataract Hospitalization History see above [employer] Other History general Narrative - Reported* Type Description Date Medical History type 2 diabetes Medical History hypothyroid Medical History Afib Surgical History multiple neck sx Surgical History tonsillectomy Surgical History adenoidectomy Surgical History MAU cataract Hospitalization History see above Hospitalization History low [facility]2023 [employer] Other History general Narrative - Reported* Type [...] 2 DM, generalized weakness hypomagnesiema, RADHA 11/13/23-11/15/23 [employer] Other Hospital Discharge instructions No data available [...] hospitalization for symptomatic hyponatremia, [facility] [place] Dr. Lara ph [phone], fax [phone] Diagnosis 1 Hyponatremia (E87.1) Referral Organization [facility] [employer] Kevin Referring Provider First Name Jada Referring Provider Last Name [facility] Referring Provider Specialty [facility] [employer] Referred Organization [facility] Referred Provider Romeo Lara Referred Address [address], [place],[address] Referred Provider Specialty Internal Med icine Referral Priority Routine General Notes Gabrielle Reid 06/2023 01:35:25 PM > referral received and faxed Clinical Notes [facility] [place] Dr. Lara ph [phone], fax [phone] Reason hyponatremia, recent hospitalization [facility] for hyponatremia Diagnosis 1 Hyponatremia (E87.1) Referral Organization [facility] [place] Referring Provider First Name Jada Referring Provider Last Name [facility] Referring Provider Specialty [facility] Referred Organization [facility] Referred Address [address] [place], [place],[address] Referred Provider Specialty Nephrology Referral Priority Routine [...] section and content) DATE CREATED AUTHOR 06/03/2020 [facility] DATE CREATED AUTHOR AUTHOR'S ORGANIZ ATION 11/10/2023 [facility] DATE CREATED AUTHOR AUTHOR'S ORGANIZ ATION 05/03/2024 [facility] DATE CREATED AUTHOR AUTHOR'S ORGANIZ ATION 07/01/2024 [facility] DATE CREATED AUTHOR AUTHOR'S ORGANIZ ATION 08/17/2024 [facility] DATE CREATED AUTHOR AUTHOR'S ORGANIZ ATION 11/02/2024 [facility] DATE CREATED AUTHOR AUTHOR'S ORGANIZ ATION 11/14/2024 [facility] DATE CREATED AUTHOR AUTHOR'S ORGANIZ ATION 11/24/2024 [facility] DATE CREATED AUTHOR AUTHOR'S ORGANIZ ATION 11/25/2024 [facility] DATE CREATED AUTHOR AUTHOR'S ORGANIZ ATION 11/29/2024 [facility] DATE CREATED AUTHOR AUTHOR'S ORGANIZ ATION [...] or prosecute any alcohol or drug abuse patient.[facility] Patient Care team informatio n (unrecognized section and content) Nutritional Health Coach Relationship Specialty Start Date End Date Kylah Garcia MD PCP - General Family Medicine 02/03/24 Nutritional Health Coach Relationship Specialty Start Date End Date Kylah Garcia MD PCP - General Family Medicine 02/03/24 Nutritional Health Coach Relationship Specialty Start Date End Date Kylah Garcia MD PCP - General Family Medicine 02/03/24 Nutritional Health Coach Relationship Specialty Start Date End Date Kylah Garcia MD PCP - General Family Medicine 02/03/24 Nutritional Health Coach Relationship Specialty Start Date End Date Kylah Garcia MD PCP - General Family Medicine 02/03/24 Nutritional Health Coach Relationship Specialty Start Date End Date Kylah Garcia MD [facility] [place] [address] PCP - General Family Medicine 11/26/24 Nutritional Health Coach Relationship Specialty Start Date End Date Kylah Garcia MD [address] [place] [address] PCP - General Family Medicine 11/26/24 Nutritional Health Coach Relationship Specialty Start Date End Date Kylha Garcia MD [address] [place] [address] PCP - General Family Medicine 11/26/24 Nutritional Health Coach Relationship Specialty Start Date End Date Kylah Garcia MD [address] [place] [address] PCP - General Family Medicine 11/26/24 FOR [...] BE BASED ON THE PRIMARY CLINICAL RECORDS. [facility]. provides no warranty or guarantee of the accuracy or completeness of information in this document.
--- NOTE | 2024-12-14 06:43 | P.HP_ITS ---
HPI H&P: HPI History of Present Illness Chief complaint: HYPONATREMIA, AMS Narrative: Patient presented to the emergency room with altered mental status, no focal neurological deficits just was not answering questions appropriately, in ER found to have significant hyponatremia, he has had this in the past but this is his worst episode as his sodium was down to 122 I saw patient up on the medical surgical floor, he was feeling better this is after receiving some fluids, no complaints, no focal neurological deficits Opioid HPI Opioid Management Most Recent Pain and Opioid Data: Last Pain Scale 0 12/14/24 08:10 12/14/24 Last Pain Assessment 12/14/24 13:00 Last MAR Pain Assessment 12/14/24 08:10 Last ORT Total Score 0 12/14/24 06:21 12/14/24 Last ORT Risk Category Low Risk 12/14/24 06:21 12/14/24 Ur Phencyclidine Scrn Negative (NEGATIVE) 08/21/23 03:22 1007/06 PFSH PFSH Medical History (Updated 12/14/24 @ 05:12 by Joe España MD) Hyponatremia ?E87.1 - Hypo-osmolality and hyponatremia (ICD-10) Hypomagnesemia ?E83.42 - Hypomagnesemia (ICD-10) RADHA (acute kidney injury) ?N17.9 - Acute kidney failure, unspecified (ICD-10) Paroxysmal atrial fibrillation ?I48.0 - Paroxysmal atrial fibrillation (ICD-10) Type 2 diabetes mellitus with hyperglycemia ?E11.65 - Type 2 diabetes mellitus with hyperglycemia (ICD-10) Influenza ?J11.1 - Influenza due to unidentified influenza virus with other respiratory manifestations (ICD-10) Hypomagnesemia ?E83.42 - Hypomagnesemia (ICD-10) Acute hyponatremia ?E87.1 - Hypo-osmolality and hyponatremia (ICD-10) Acute confusion ?R41.0 - Disorientation, unspecified (ICD-10) Diabetes ?E11.9 - Type 2 diabetes mellitus without complications (ICD-10) High cholesterol ?E78.00 - Pure hypercholesterolemia, unspecified (ICD-10) Atrial fibrillation ?I48.91 - Unspecified atrial fibrillation (ICD-10) Surgical History (Updated 12/14/24 @ 06:24 by Roxie Greenfield RN) Hx of carpal tunnel repair ?Z98.890 - Other specified postprocedural states (ICD-10) Family History Father Family history of myocardial infarction Family history of hypertension Mother Family history of cancer Family history of diabetes mellitus Social History (Updated 12/14/24 @ 06:25 by Roxie Greenfield RN) Within the past year, how often did you have a drink containing alcohol: 2-4 times a month Smoking status: Never smoker Non-prescribed substance use: denies use Highest level of school completed/degree received: high school graduate Are you now , , , , never or living with a partner: Little interest or pleasure in doing things: not at all Feeling down, depressed, or hopeless: not at all Gender Identity: male Meds Home Medications and Allergies Home Medications ?Medication ?Instructions ?Recorded ?Confirmed ?Type glimepiride 2 mg tablet 2 mg PO DAILY 08/21/23 12/14/24 History levothyroxine 25 mcg tablet 25 mcg PO QAM 08/21/23 12/14/24 History pravastatin 40 mg tablet 40 mg PO DAILY 08/21/23 12/14/24 History tamsulosin 0.4 mg capsule 0.4 mg PO DAILY 08/21/23 12/14/24 History warfarin 5 mg tablet (Jantoven) 5 mg PO MOWEFR 08/21/23 12/14/24 History warfarin 2.5 mg tablet (Jantoven) 2.5 mg PO .4 days a week 08/22/23 12/14/24 History finasteride 5 mg tablet 5 mg PO .qd 11/13/23 12/14/24 History atenolol 25 mg tablet 25 mg PO BID #60 tabs 11/15/23 12/14/24 Rx sodium chloride 1,000 mg soluble 1,000 mg PO TID #90 tabs 11/15/23 12/14/24 Rx tablet TUMERIC 08/13/24 History coenzyme Q10 100 mg capsule (Co 100 mg PO DAILY 08/13/24 12/14/24 History Q-10) cyclobenzaprine 10 mg tablet 10 mg PO TID PRN muscle spasm 08/13/24 12/14/24 History gabapentin 300 mg capsule mg 08/13/24 History vitamin B complex (B-Complex 1 tab PO DAILY 08/13/24 08/13/24 History tablet) Allergies Allergy/AdvReac Type Severity Reaction Status Date / Time No Known Drug Allergies Allergy Verified 12/14/24 03:51 Exam Constitutional Vital Signs, click to edit/add: Last Vital Signs Temp 97.8 F 12/14/24 06:10 Pulse 77 12/14/24 06:10 Resp 18 12/14/24 06:10 BP 138/66 12/14/24 06:10 Pulse Ox 93 L 12/14/24 06:10 O2 Del Method Room Air 12/14/24 06:10 Documenting provider has reviewed patient's vital signs: yes Common normals: no apparent distress Lymph Lymphatic: no lymphadenopathy noted Respiratory Common normals: normal respiratory effort Cardio Common normals: regular rate, regular rhythm, no gallops, no clicks and no murmurs GI Common normals: Normal to inspection, nondistended, normoactive bowel sounds present Extremity Common normals: normal to inspection and full ROM Results Labs Labs: Short CBC 12/14/24 Range/Units 03:28 WBC 9.9 (4.0-11.0) 10^3/uL Hgb 11.8 L (14.0-18.0) g/dL Hct 33.0 L (42.0-54.0) % Plt Count 245 (150-450) 10^3/uL BMP 12/14/24 03:28 Sodium 122 L* Potassium 4.5 Chloride 90 L Carbon Dioxide 23.0 BUN 11.0 Creatinine 1.00 Glucose 95 Calcium 8.4 L Urine 12/14/24 Range/Units 03:28 Urine Color Yellow (YELLOW) Urine Clarity Clear (CLEAR) Urine pH 7.0 (5.0-9.0) Ur Specific [place] 1.015 (1.005-1.025) Urine Protein Negative (NEG/TRACE) mg/dL Urine Glucose (UA) Negative (NEGATIVE) mg/dL Assessment and Plan Assessment and Plan (1) Hyponatremia: (2) Altered mental status: Plan Admission findings: Altered mental status secondary to acute hyponatremia with a sodium of 122 Hyponatremia-had workup in the past and is seeing a kidney doctor for this, no etiology found currently but patient is still taking gabapentin, would recommend holding that as a potential source for his hyponatremia, serum osmolalities and urine sodium are pending, start patient on normal saline, may need to go to 3% if not improving or altered mental status returns Hypertension-continue with home medications BPH-continue with home medications Diabetes mellitus-continue with insulin sliding scale and home medications Hypothyroidism-continue home medications, check TSH Hypercholesterolemia continue with home medications Atrial fibrillation-continue with Coumadin L Admission status: Patient was hyponatremia 122 but is feeling better already, with currently no altered mental status, medically necessary treatment may only span 1 midnight, place patient in observation status, if he is not improved and medically necessary treatment will span 2 midnights he will be changed to inpatient status
[2024-12-14] MEDS: ACETAMINOPHEN 325 MG TABLET 650 MG PO ×2 (06:52→23:33)
[2024-12-14] MEDS: SODIUM CHLORIDE 1,000 MG TABLET 1000 MG PO ×3 (06:52→23:34)
[2024-12-14 09:15] LABS: Anion Gap 14.8; BUN Creatinine Ratio 12.9; Calcium 8.6 mg/dL (8.5-10.1); Carbon Dioxide 22.6 mmol/L (21.0-32.0); Chloride 91 mmol/L (98-107); Estimated GFR (African America >60 (>=60 mL/min/1.73m^2); Estimated GFR (Non-African Ame >60 (>=60 mL/min/1.73m^2); Glucose 92 mg/dL (74-106); Potassium 4.4 mmol/L (3.5-5.1)
[2024-12-14 09:20] LABS: Sodium 124 mmol/L (136-145)
[2024-12-14 09:28] LABS: Sodium Urine Random 153 mmol/L (30-90)
[2024-12-14] MEDS: TAMSULOSIN HCL 0.4 MG CAPSULE PO (09:46)
[2024-12-14] MEDS: ATORVASTATIN CALCIUM 10 MG TABLET PO (09:46)
[2024-12-14] MEDS: GLIMEPIRIDE 2 MG TABLET PO (09:46)
[2024-12-14] MEDS: LEVOTHYROXINE SODIUM 25 MCG TABLET PO (09:46)
[2024-12-14] MEDS: ATENOLOL 25 MG TABLET PO ×2 (09:46→23:34)
--- NOTE | 2024-12-14 09:53 | CM.NOTE ---
Rounds made with Dr. Head, pt awake, alert, and oriented. Pt will be OBS status, possible discharge late afternoon or tomorrow AM.
[2024-12-14 12:17] LABS: Anion Gap 10.5; BUN Creatinine Ratio 13.6; Calcium 8.1 mg/dL (8.5-10.1); Carbon Dioxide 24.5 mmol/L (21.0-32.0); Chloride 91 mmol/L (98-107); Estimated GFR (African America >60 (>=60 mL/min/1.73m^2); Estimated GFR (Non-African Ame >60 (>=60 mL/min/1.73m^2); Glucose 101 mg/dL (74-106)
[2024-12-14 12:23] LABS: Sodium 122 mmol/L (136-145)
--- NOTE | 2024-12-14 15:56 | SWNOTE1 ---
SW met with pt to discuss dc needs and recommendations of HH. Pt is hard of hearing. SW had to write on paper to ask questions. Pt lives at home with , voiced he does not use any devices at home. SW offered HH therapy. Pt asked why he would need it? SW stated to keep his strength up. Pt then stated he does not need it. He stated his has it but he does not think he does. SW advised pt if he gets home and does want it, then he can reach out to his PCP. At this time pt is refusing HH services.
[2024-12-14] MEDS: WARFARIN SODIUM 5 MG TABLET PO (16:06)
[2024-12-14 16:10] LABS: Anion Gap 8.3; Carbon Dioxide 26.7 mmol/L (21.0-32.0); Chloride 92 mmol/L (98-107); Estimated GFR (African America >60 (>=60 mL/min/1.73m^2); Estimated GFR (Non-African Ame >60 (>=60 mL/min/1.73m^2); Glucose 67 mg/dL (74-106)
[2024-12-14 16:11] LABS: Sodium 123 mmol/L (136-145)
[2024-12-15] VITALS (10 sets, daily range): BP systolic 150–180; BP diastolic 68–94; PULSE 59–77; TEMP 36.3–36.9; O2SAT 95–99
[2024-12-15] MEDS: 0.9 % SODIUM CHLORIDE 1,000 ML 75 ML IV ×2 (01:22→10:22)
[2024-12-15 01:41] LABS: BUN Creatinine Ratio 7.5; Calcium 8.5 mg/dL (8.5-10.1); Carbon Dioxide 24.2 mmol/L (21.0-32.0); Chloride 94 mmol/L (98-107); Estimated GFR (African America >60 (>=60 mL/min/1.73m^2); Estimated GFR (Non-African Ame >60 (>=60 mL/min/1.73m^2); Glucose 115 mg/dL (74-106); Potassium 4.2 mmol/L (3.5-5.1); Sodium 126 mmol/L (136-145)
[2024-12-15] MEDS: SODIUM CHLORIDE 1,000 MG TABLET 1000 MG PO (06:27)
[2024-12-15 06:42] LABS: Basophils Percent Auto 0.5 % (0.2-2.0); Eosinophils Absolute Auto 0.1 10^3/uL (0.0-0.7); Eosinophils Percent Auto 1.9 % (0.9-7.0); Hematocrit 35.2 % (42.0-54.0); Hemoglobin 12.3 g/dL (14.0-18.0); Immature Granulocytes Abs Auto 0.01 10^3/uL (0.00-0.03); Immature Granulocytes Pct Auto 0.2 % (0.0-0.5); Lymphocytes Absolute Auto 1.4 10^3/uL (1.2-3.8); Lymphocytes Percent Auto 24.2 % (20.5-60.0); Mean Corpuscular HGB Conc 34.9 g/dL (29.9-35.2); Mean Corpuscular Hemoglobin 30.4 pg (25.9-34.0); Mean Corpuscular Volume 86.9 fL (80.0-94.0); Mean Platelet Volume 10.9 fL (9.5-13.5); Monocytes Absolute Auto 0.7 10^3/uL (0.3-0.8); Monocytes Percent Auto 11.8 % (1.7-12.0); Neutrophils Absolute Auto 3.5 10^3/uL (1.4-6.5); Neutrophils Percent Auto 61.4 % (43.0-75.0); Platelet Count 205 10^3/uL (150-450); Red Blood Count 4.05 10^6/uL (4.70-6.10); Red Cell Distribution Width 12.5 % (11.0-15.0); White Blood Count 5.7 10^3/uL (4.0-11.0)
[2024-12-15 06:51] LABS: Anion Gap 12.8; BUN Creatinine Ratio 8.4; Calcium 8.5 mg/dL (8.5-10.1); Carbon Dioxide 24.5 mmol/L (21.0-32.0); Chloride 96 mmol/L (98-107); Estimated GFR (African America >60 (>=60 mL/min/1.73m^2); Estimated GFR (Non-African Ame >60 (>=60 mL/min/1.73m^2); Glucose 98 mg/dL (74-106); Potassium 4.3 mmol/L (3.5-5.1); Sodium 129 mmol/L (136-145)
[2024-12-15 06:52] LABS: INR 2.05; Prothrombin Time 20.2 sec (9.0-11.6)
[2024-12-15 07:01] LABS: Phosphorus 2.4 mg/dL (2.6-4.7)
[2024-12-15] MEDS: FINASTERIDE 5 MG TABLET PO (10:21)
[2024-12-15] MEDS: ATENOLOL 25 MG TABLET PO (10:21)
[2024-12-15] MEDS: GLIMEPIRIDE 2 MG TABLET PO (10:21)
[2024-12-15] MEDS: ATORVASTATIN CALCIUM 10 MG TABLET PO (10:21)
[2024-12-15] MEDS: LEVOTHYROXINE SODIUM 25 MCG TABLET PO (10:21)
[2024-12-15] MEDS: ACETAMINOPHEN 500 MG TABLET 1000 MG PO (10:21)
[2024-12-15] MEDS: TAMSULOSIN HCL 0.4 MG CAPSULE PO (10:22)
--- NOTE | 2024-12-15 12:01 | PT.DAILY ---
Physical Therapy Daily Note PT Daily Note/Assess Start: 12/15/24 11:51 Freq: Status: Active Protocol: Document 12/15/24 11:51 [id number] (Rec: 12/15/24 12:01 [id number]) Physical Therapy Daily Note/Assessment Time In/Time Out Time In 10:16 Time Out 10:30 Pain In Pain Level 0 Pain Out Pain Level 0 Subjective Subjective Patient received supine in bed with nursing providing care. Patient agreeable to participate with PT. Bed alarm disengaged. Therapeutic Exercise Time Therapeutic Exercise 5 Minutes (minutes) Therapeutic Exercise 0 Units Therapeutic Exercise Treatment Therapeutic Exercise Patient performed supine ther ex to increase strength Treatment for ankle pumps and quad sets x 10 reps. Sitting ther ex for toe/heel raises, LAQ's, resisted hip ABD/ADD and marching x 10 reps. Therapeutic Activity Time Therapeutic Activity 9 Minutes (minutes) Therapeutic Activity 1 Units Therapeutic Activity Treatment Bed Mobility Ability Contact Guard Assist Therapeutic Activity Bed mobility: spine to R sit EOB CGA +1. Sitting Comments balance good and no UE support required. Patient received medication while seated EOB from nursing. Transfer: sit to stand CGA +1. Patient ambulated ~100 feet with CGA +1. Verbal cues to slow pace of walking for safety. Patient demonstrates sway to R and L when walking, no LOB. Patient returned to supine in bed CGA +1, bed alarm engaged, CBWR and patient need met. Total Physical Therapy Time Total Therapy 14 Minutes Total Physical 1 Therapy Units Summary Daily Note Summary Patient demonstrated improved bed mobility and gait distance. Patient fatigued after ambulation. Patient would benefit from HH PT or outpatient PT to address functional deficits for balance and safety.
--- NOTE | 2024-12-15 13:25 | P.DS_ITS ---
DS: Providers Provider Date of admission: 12/14/24 05:59 Primary care physician: KYLAH MEDINA Consults: 12/14/24 10:14 Occupational Therapy Eval and Treat Routine Reason for consultation: Only if needed for Rehab Has provider been notified: No Physical Therapy Eval and Treat Routine Reason for consultation: Eval and Treat Has provider been notified: No DS: Diagnosis Discharge Diagnosis (1) Hyponatremia: (2) Altered mental status: (3) Type 2 diabetes mellitus with hyperglycemia: (4) Paroxysmal atrial fibrillation: (5) Adult hypothyroidism: DS: Summary Hospital Course Hospital Course: Reason for admission: See ER note and H&P for details. 84 y/o male to ER with altered mental status. Woke up from sleep confused and had episode of incontinence. felt not acting like self and to ER. Labs showed sodium 122. UA and chest x-ray normal. History of low sodium and prior nephrology work up in past normal. Admitted for treatment. Hospital course: Started IV fluids and resumed home oral NaCl. Started PT for weakness. Slowly improved in hospital. Labs improved and sodium up to 129. Alert and back to baseline. Patient oriented and strength improved. Discharged home in stable condition. Will resume home medication as directed. Follow up with PCP in 1-2 weeks. Time Spent with Patient Time attestation: Total time spent providing and/or coordinating discharge services: Time spent: greater than 30 minutes Exam Constitutional Vital Signs, click to edit/add: Last Vital Signs Temp 97.8 F 12/15/24 09:58 Pulse 62 12/15/24 11:51 Resp 16 12/15/24 09:58 BP 150/68 H 12/15/24 09:58 Pulse Ox 99 12/15/24 10:30 O2 Del Method Room Air 12/15/24 10:30 Documenting provider has reviewed patient's vital signs: yes Common normals: no apparent distress, oriented x3 and alert HENMT Common normals: normocephalic Eye Common normals: PERRL and EOMs intact bilaterally Respiratory Common normals: normal respiratory effort and clear to auscultation bilaterally Cardio Common normals: regular rate, regular rhythm, no gallops, no murmurs and no rub GI Common normals: Normal to inspection, nondistended, normoactive bowel sounds present and non-tender Extremity Common normals: no pedal edema DS: Data Data Completed and Pending Labs on day of discharge: Labs from last 24 hours 12/15/24 12/15/24 12/14/24 06:07 01:20 15:56 WBC 5.7 RBC 4.05 L Hgb 12.3 L Hct 35.2 L MCV 86.9 MCH 30.4 MCHC 34.9 RDW 12.5 Plt Count 205 MPV 10.9 Neut % (Auto) 61.4 Lymph % (Auto) 24.2 Mckenzie % (Auto) 11.8 Eos % (Auto) 1.9 Baso % (Auto) 0.5 Neut # (Auto) 3.5 Lymph # (Auto) 1.4 Mckenzie # (Auto) 0.7 Eos # (Auto) 0.1 Baso # (Auto) 0.0 Abs Immat Gran (auto) 0.01 Imm/Tot Granulo (auto) 0.2 PT 20.2 H INR 2.05 Sodium 129 L 126 L 123 L* Potassium 4.3 4.2 4.0 Chloride 96 L 94 L 92 L Carbon Dioxide 24.5 24.2 26.7 Anion Gap 12.8 12.0 8.3 BUN 7.0 7.0 10.0 Creatinine 0.83 0.93 0.83 Est GFR ( Amer) >60 >60 >60 Est GFR (Non-Af Amer) >60 >60 >60 BUN/Creatinine Ratio 8.4 7.5 12.0 Glucose 98 115 H 67 L Calcium 8.5 8.5 8.0 L Phosphorus 2.4 L Discharge Plan Discharge Disposition: Home, Self-Care Condition: Fair Discharge Medications: Continued glimepiride 2 mg tablet 2 mg PO DAILY levothyroxine 25 mcg tablet 25 mcg PO QAM pravastatin 40 mg tablet 40 mg PO DAILY tamsulosin 0.4 mg capsule 0.4 mg PO DAILY warfarin [Jantoven] 5 mg tablet 5 mg PO MOWE Rx Instructions: takes on tuesday, and tue [facility] warfarin [Jantoven] 2.5 mg tablet 2.5 mg PO .4 days a week Rx Instructions: Takes on Tuesday, , and tue per [facility] clinic finasteride 5 mg tablet 5 mg PO DAILY sodium chloride 1,000 mg Tablet,Soluble 1,000 mg PO TID Qty: 90 0RF atenolol 25 mg Tablet 25 mg PO BID Qty: 60 0RF gabapentin 300 mg capsule 300 mg PO DAILY coenzyme Q10 [Co Q-10] 100 mg capsule 100 mg PO DAILY vitamin B complex [B-Complex] Tablet 1 tab PO DAILY cyclobenzaprine 10 mg tablet 10 mg PO TID PRN (Reason: muscle spasm) Activity: increase activity as tolerated Diet: advance to your usual diet Print Language: Finnish Patient Instructions: Hyponatremia (DC), Altered Mental Status (ED) Forms: Portal Instructions Follow Up Appointments: Call Dr. Medina on TuesdayDecember 17 for f/u after discharge. Discharge Date/Time: 12/15/24 12:30
--- NOTE | 2024-12-18 14:01 | CM.DCFOLLOWU ---
1st attempt. No answer
--- NOTE | 2024-12-20 15:29 | CM.DCFOLLOWU ---
Person spoke with:patient's How are you feeling? he is doing well, but he is bored How is your pain?none Did you understand your discharge instructions?yes Do you have any questions about your discharge instructions?no Were you given any prescriptions at discharge?no Were you able to get your prescriptions filled?N/A Do you understand how to take your medications as ordered?N/A Do you have any questions about your follow up appointment and do you plan to keep your follow up appointment? no questions, follow up was Tuesday Is there anything else that you would like to discuss?no Questions/Comments/Concerns/Other:none
== END 2024-12-15 12:30 | disposition home or self-care (01) ==
LOC: ER 05:12 → MS 14:17
PROVIDERS: Registered Nurse; Admitting Provider Family Medicine; Emergency Provider Emergency Medicine; PCP Family Medicine; Visit Provider Family Medicine
DX: E87.1 Hypo-osmolality and hyponatremia (principal); R41.82 Altered mental status, unspecified; I48.0 Paroxysmal atrial fibrillation; I10 Essential (primary) hypertension; N40.0 Benign prostatic hyperplasia without lower urinary tract symptoms; E03.9 Hypothyroidism, unspecified; E78.00 Pure hypercholesterolemia, unspecified; Z79.01 Long term (current) use of anticoagulants; Z79.84 Long term (current) use of oral hypoglycemic drugs; Z79.890 Hormone replacement therapy; E11.65 Type 2 diabetes mellitus with hyperglycemia
CPT/HCPCS: 36415; 70450; 71045; 80048; 80320; 81001; 83930; 84100; 84300; 84436; 84443; 84484; 85025; 85610; 87040; 87804; 87811; 93005; 94667; 94668; 94761; 96360; 96361; 97161; 97165; 97530; 99285; G0378

== ENCOUNTER 2024-12-17 02:31 | Outpatient (RCR) | payer OTHER, SELFPAY | END 2025-01-11 10:40 | disposition home or self-care (01) | LOC: MM 02:31 | PROVIDERS: PCP Family Medicine; Visit Provider Internal Medicine | DX: Z51.81 Encounter for therapeutic drug level monitoring (principal); Z79.01 Long term (current) use of anticoagulants; I48.20 Chronic atrial fibrillation, unspecified | CPT/HCPCS: 85610; G0463 ==

== ENCOUNTER 2025-01-12 07:21 | Outpatient (RCR) | payer MEDICARE, SELFPAY | END 2025-02-08 10:09 | disposition home or self-care (01) | LOC: MM 07:21 | PROVIDERS: PCP Family Medicine; Visit Provider Internal Medicine | DX: Z51.81 Encounter for therapeutic drug level monitoring (principal); Z79.01 Long term (current) use of anticoagulants; I48.20 Chronic atrial fibrillation, unspecified | CPT/HCPCS: 85610; G0463 ==

== ENCOUNTER 2025-02-12 05:27 | Outpatient (RCR) | payer MEDICARE, SELFPAY | END 2025-03-13 15:46 | disposition home or self-care (01) | LOC: MM 05:27 | PROVIDERS: PCP Family Medicine; Visit Provider Internal Medicine | DX: Z51.81 Encounter for therapeutic drug level monitoring (principal); Z79.01 Long term (current) use of anticoagulants; I48.20 Chronic atrial fibrillation, unspecified | CPT/HCPCS: 85610; G0463 ==

== ENCOUNTER 2025-03-06 11:54 | Outpatient (OUT) | payer MEDICARE, SELFPAY ==
[2025-03-06 12:31] LABS: Hematocrit 35.8 % (42.0-54.0); Hemoglobin 12.5 g/dL (14.0-18.0)
[2025-03-06 13:03] LABS: Albumin Level 3.8 g/dL (3.4-5.0); Anion Gap 13.7; BUN Creatinine Ratio 9.8; Calcium 8.8 mg/dL (8.5-10.1); Carbon Dioxide 26.7 mmol/L (21.0-32.0); Chloride 98 mmol/L (98-107); Estimated GFR (African America >60 (>=60 mL/min/1.73m^2); Estimated GFR (Non-African Ame >60 (>=60 mL/min/1.73m^2); Glucose 74 mg/dL (74-106); Magnesium 1.6 mg/dL (1.8-2.4); Phosphorus 3.2 mg/dL (2.6-4.7); Potassium 4.4 mmol/L (3.5-5.1); Sodium 134 mmol/L (136-145)
== END 2025-03-06 11:55 | disposition home or self-care (01) ==
LOC: LAB 12:06
PROVIDERS: PCP Family Medicine
DX: I48.91 Unspecified atrial fibrillation (principal); I10 Essential (primary) hypertension
CPT/HCPCS: 36415; 80069; 83735; 85014; 85018

== ENCOUNTER 2025-03-14 04:40 | Outpatient (RCR) | payer MEDICARE, SELFPAY | END 2025-04-12 15:45 | disposition home or self-care (01) | LOC: MM 04:40 | PROVIDERS: PCP Family Medicine; Visit Provider Internal Medicine | DX: Z51.81 Encounter for therapeutic drug level monitoring (principal); Z79.01 Long term (current) use of anticoagulants; I48.20 Chronic atrial fibrillation, unspecified | CPT/HCPCS: 85610; G0463 ==

== ENCOUNTER 2025-04-14 07:32 | Outpatient (RCR) | payer MEDICARE, SELFPAY | END 2025-05-09 14:34 | disposition home or self-care (01) | LOC: MM 07:32 | PROVIDERS: PCP Family Medicine; Visit Provider Internal Medicine | DX: Z51.81 Encounter for therapeutic drug level monitoring (principal); Z79.01 Long term (current) use of anticoagulants; I48.20 Chronic atrial fibrillation, unspecified | CPT/HCPCS: 85610; G0463 ==

== ENCOUNTER 2025-05-14 02:29 | Outpatient (RCR) | payer MEDICARE, SELFPAY | END 2025-06-13 16:49 | disposition home or self-care (01) | LOC: MM 02:29 | PROVIDERS: PCP Family Medicine; Visit Provider Internal Medicine | DX: Z51.81 Encounter for therapeutic drug level monitoring (principal); Z79.01 Long term (current) use of anticoagulants; I48.20 Chronic atrial fibrillation, unspecified | CPT/HCPCS: 85610; G0463 ==

== ENCOUNTER 2025-06-01 17:48 | Emergency (ER) | payer MEDICARE, SELFPAY ==
[2025-06-01 17:55] VITALS: BP 140/82; PULSE 79; TEMP 36.8; O2SAT 98; BMI 25.1
--- OUTSIDE RECORDS SUMMARY | 2025-06-01 17:55 | XMS_ITS | CCD ---
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 Name Role Phone Jada Rene Unavailable Unavailable Primary Care Provider Unavailrogerio e Edgard Jada Endy Attending Unavailable Edgard Jada A Admitting Unavailable Edgard Jada Endy Primary Care Unavailable Edgard Jada Endy Attending Unavailable Edgard Jada A Admitting Unavailable Edgard Jada A Primary Care Unavailable Kylah Medina Primary Care Physician MD Kylah Medina Attending Unavailable MD Kylah Medina Attending Unavailable MD Kylah Medina Attending Unavailable MD Kylah Medina Attending Unavailable Axel Hernández Admitting Unavailable Axel Hernández Attending Unavailable Edgar Aexl Serina Referring Unavailable MD Kashif Barnett Admitting Unavailable MD Kashif Barnett Attending Unavailable MD Kashif Barnett Referring Unavailable Jason Vaughn Consulting Unavaila Jason Chase Consulting Unavaila Jason Chase Consulting Unavaila MD Kylah Choudhury Admitting Unavailable MD Kylah Medina Attending Unavailable MD Kylah Medina Admitting Unavailable MD Kylah Medina Attending Unavailable Axel Hernández Admitting Unavailable Axel Hernández Attending Unavailable Edgar Axel Serina Referring Unavailable MD Kashif Barnett Attending Unavailable MD Kylah Medina Referring Unavailable Dixon Dubose Admitting Unavailable Dixon Dubose Attending Unavailable MD Kylah Medina Referring Unavailable MD Kylah Medina Attending Unavailable MD Kylah Medina Attending Unavailable MD Kylah Medina Attending Unavailable Nathaniel Bonilla MD Attending Unavailable Kylah Medina MD Primary Care Provider [phone] Kylah Medina Attending Unavailable Ross, Kylah E. Admitting Unavailable Hernández, Axel T Admitting Unavailable Hernández, Axel T Attending Unavailable Hernández, Axel T Referring Unavailable Ross, Kylah E. Attending Unavailable Ross, Kylah E. Attending Unavailable Hernández, Axel T Admitting Unavailable Hernández, Axel T Attending Unavailable Hernández, Axel T Referring Unavailable Ross, Kylah E. Attending Unavailable Ross, Kylah E. Admitting Unavailable Ross Kylah COHN Primary Care Provider [phone] HERNÁNDEZ, AXEL T Referring Unavailable HERNÁNDEZ, AXEL T Attending Unavailable ROSS, KYLAH E Referring Unavailable HERNÁNDEZ, AXEL T Attending Unavailable HERNÁNDEZ, AXEL T Referring Unavailable HERNÁNDEZ, AXEL T Attending Unavailable HERNÁNDEZ, AXEL T Referring Unavailable BEJ, SHALA Craig Attending Unavailable HERNÁNDEZ, AXEL T Attending Unavailable HERNÁNDEZ, AXEL T Referring Unavailable TIMMIEMILIANO Nunn H Attending Unavailable CHOWJELANI Attending Unavailable Ross, Kylah E. Attending Unavailable Ross, Kylah E. Admitting Unavailable Ross, Kylah E. Attending Unavailable Ross, Kylah E. Admitting Unavailable Ross, Kylah E. Attending Unavailable Ross, Kylah E. Attending Unavailable Ross, Kylah E. Admitting Unavailable Ross, Kylah E. Attending Unavailable Ross, Kylah E. Attending Unavailable Ross, Kylah E. Attending Unavailable Ross, Kylah E. Admitting Unavailable Ross, Kylah E. Attending Unavailable Ross, Kylah E. Admitting Unavailable Ross, Kylah E. Attending Unavailable Ross, Kylah E. Attending Unavailable Ross, Kylah E. Admitting Unavailable Ross, Kylah E. Attending Unavailable Ross, Kylah E. Admitting Unavailable Ross, Kylah E. Admitting Unavailable Ross, Kylah E. Attending Unavailable Ross, Kylah E. Admitting Unavailable Ross, Kylah E. Attending Unavailable Ross, Kylah E. Attending Unavailable Hernández, Axel T Referring Unavailable Hernández, Axel T Admitting Unavailable Hernández, Axel T Attending Unavailable Ross, Kylah E. Attending Unavailable Ross, Kylah E. Attending Unavailable Ross, Kylah E. Attending Unavailable Ross, Kylha E. Attending Unavailable Ross, Kylah E. Attending Unavailable Ross, Kylah E. Attending Unavailable Ross, Kylah E. Attending Unavailable Mourany, Davie E. Attending Unavailable Ross, Kylha E. Referring Unavailable Mourany, Davie E. Attending Unavailable NONE, XXXX Referring Unavailable Kirnus, Kashif Craig Admitting Unavailable Kirnus, Kashif Craig Attending Unavailable Kirnus, Kashif D Admitting Unavailable Kirnus, Kashif D Attending Unavailable Kashif Barnett Referring Unavailable Axel Hernández Admitting Unavailable Axel Hernández Attending Unavailable Axel Hernández Referring Unavailable Kylah Medina Admitting Unavailable Kylah Medina Attending Unavailable REYES, YANIQUE A Attending Unavailable REYES, YANIQUE A Attending Unavailable Kylah Medina Attending Unavailable REYES, YANIQUE A Admitting Unavailable REYES, YANIQUE A Attending Unavailable REYES, YANIQUE A Attending Unavailable REYES, YANIQUE A Admitting Unavailable Allergies Allergy Classification Reported Allergen(s) Allergy Type Date of Onset Reaction(s) Facility (9 sources) No Known Medication Allergies; Translations: [No Known Medication Allergies] Propensity to adverse reactions (disorder) [facility] Repository Medications Current Medications Medication Drug Class(es) Dates Sig (Normalized) Sig (Original) acetaminophen 325 mg / HYDROcodone bitartrate 5 mg oral tablet (11 sources) Opioid Agonist Start: 03-20-2024 take 1 tablet by mouth every four hours as needed for pain Perdido 325 mg-5 mg oral tablet See Instructions, for pain, 10 tab(s), Refill(s) 0, 1 tab(s) Oral q4hr PRN Pain. Duration 7 days., [facility]/pharmacy #[id number], 180.5, cm, 03/20/24 15:05:00 EDT, Height/Length Dosing, 82.5, kg, 03/20/24 15:05:00 EDT, Weight Dosing Start Date: 03/20/24 Status: Ordered End: 11-26-2024 HYDROcodone-acetaminophen (N orco) 5-325 MG tablet 11/26/2024 Discontinued (Therapy completed) atenolol 25 mg oral tablet (20 sources) beta-Adrenergic Dimitris Start: 05-20-2025 atenol ol 25 mg Tab See Instructions, take 1/2 tab daily, # 45 tab(s), Refills(s) 2, Pharmacy: [facility], 178.6, cm, 05/09/25 8:18:00 EDT, Height/Length Dosing, 80.6, kg, 05/09/25 8:18:00 EDT, Weight Dosing Start Date: 05/20/25 Status: Ordered Quantity: 45.0 Unit: tab(s) Repeat number: 3 Start: 10-22-2024 atenolol 25 mg Tab See Instructions, take 1/2 tab daily, # 90 tab(s), Refills(s) 1, Pharmacy: [facility], 178, cm, 09/10/24 13:01:00 EDT, Height/Length Dosing, 80.1, kg, 09/10/24 13:01:00 EDT, Weight Dosing Start Date: 10/22/24 Status: Ordered Quantity: 90.0 Unit: tab(s) Repeat number: 2 Start: 04-20-2024 atenolol 25 mg Tab See Instructions, take 1/2 tab daily, # 30 tab(s), Refills(s) 5, [id number], cm, 04/20/24 13:27:00 EDT, Height/Length Dosing, 82.2, kg, 04/20/24 13:27:00 EDT, Weight Dosing Start Date: 04/20/24 Status: Ordered Start: 10-06-2015 take 1 tablet by alyssa once daily atenolol 25 mg Tab 25 mg = 1 tab(s), Oral, Daily, # 90 tab(s), Refills(s) 0, Pharmacy: [facility], 178.2, cm, 02/02/24 10:29:00 [...] capsule (10 sources) Non-narcotic Antitussive End: 11-26-19 take 1 capsule by mouth three times daily benzonatate (Tessalon) 200 MG capsule Take 1 capsule 3 times a day by oral route. 11/26/2024 Discontinued (Therapy completed) cephalexin 500 mg oral capsule (10 sources) Cephalosporin Antibacterial End: 11-26-19 cephalexin (Keflex) 500 MG capsule 11/26/2024 Discontinued (Therapy completed) cholecalciferol 0.125 mg oral capsule (14 sources) Vitamin D take 1 capsule by mouth every twenty-four hours CoQ10 (18 sources) Start: 03-06-20 CoQ10 See Instructions, PRN Prophylaxis, Refills(s) 0 Start Date: 03/06/24 Status: Ordered Repeat number: 1 Start: 03-06-2024 CoQ10 See Inst ructions, PRN Prophylaxis, Refills(s) 0 Start Date: 03/06/24 Status: Ordered Start: 03-06-2024 CoQ10 Refills( s) 0 Start Date: 03/06/24 Status: Ordered D3 (13 sources) Start: 05-03-2024 D3 See Instruc tions, Oral Daily- patient states he takes 500 once a day, Refills(s) 0 Start Date: 05/03/24 Status: Ordered Repeat number: 1 Start: 05-03-2024 D3 See Instruc tions, Oral Daily- patient states he takes 500 once a day, Refills(s) 0 Start Date: 05/03/24 Status: Ordered diclofenac sodium 0.01 mg/mg topical gel (13 sources) Nonsteroidal Anti-inflammatory Drug diclofenac sodium (Voltaren) 1 % gel APPLY 1/2 inchTO THE AFFECTED AREA(S) BY TOPICAL ROUTE BID Active finasteride 5 mg oral tablet (20 sources) 5-alpha Reductase Inhibitor Start: 01-30-20 take 1 tablet by mouth once daily finasteride 5 mg Tab 5 mg = 1 tab(s), Oral, Daily, # 90 tab(s), Refills(s) 1, Pharmacy: [facility], 178.6, cm, 01/24/25 13:29:00 EDT, Height/Length Dosing, 82.7, kg, 01/24/25 13:29:00 EDT, Weight Dosing Start Date: 01/29/25 Status: Ordered Quantity: 90.0 Unit: tab(s) Repeat number: 2 Start: 10-09-2014 take 1 tablet by alyssa th once daily finasteride 5 mg Tab 5 mg = 1 tab(s), Oral, Daily, # 90 tab(s), Refills(s) 1, Pharmacy: [facility]/pharmacy #[id number], 178.6, cm, 11/01/24 9:21:00 EST, Height/Length Dosing, 81.3, kg, 11/01/24 9:21:00 EST, Weight Dosing Start Date: 11/08/24 Status: Ordered Comment on above: Take 1 tablet by alyssa once daily. fluticasone propionate 0.05 mg/actuat metered dose nasal spray (14 sources) Corticosteroid Start: 08-31-2024 fluticasone Nasal 0.05 mg/inh [place] See Instructions, 48 mL, Refill(s) 1, USE 1 SPRAY IN EACH NOSTRIL TWICE A DAY, [id number], 178, cm, 08/28/24 14:50:00 EDT, Height/Length Dosing, 82.2, kg, 08/28/24 14:50:00 EDT, Weight Dosing Start Date: 08/31/24 Status: Ordered Start: 07-03-2024 take 1 spray(s) nasa l route twice daily Flonase 0.05 mg/inh [place] 1 spray(s), Nasal, BID, 16 gram, Refill(s) 0, each nostril, [facility]/pharmacy #[id number], 178, cm, 07/03/24 10:05:00 EDT, Height/Length Dosing, 80.8, kg, 07/03/24 10:05:00 EDT, Weight Dosing Start Date: 07/03/24 Status: Ordered End: 11-26-2024 take 1 spray(s) nasal route once daily at bedtime fluticasone (Flonase) 50 MCG/ACT nasal spray USE 1 SPRAY(S) IN EACH NOSTRIL ONCE DAILY AT BEDTIME 11/26/2024 Discontinued (Therapy completed) gabapentin 300 mg oral capsule (20 sources) Anti-epileptic Agent Start: 04-25-2025 take 1 capsule by mouth once daily gabapentin 300 mg Cap 300 mg = 1 cap(s), Oral, Daily, # 90 cap(s), Refills(s) 1, Pharmacy: [facility], 178.6, cm, 02/05/25 13:36:00 EDT, Height/Length Dosing, 82.2, kg, 02/05/25 13:36:00 EDT, Weight Dosing Start Date: 04/25/25 Status: Ordered Quantity: 90.0 Unit: cap(s) Repeat number: 2 Start: 01-07-2025 take 1 capsule by mo [facility] once daily gabapentin 300 mg Cap 300 mg = 1 cap(s), Oral, Daily, # 90 cap(s), Refills(s) 1, Pharmacy: [facility], 178.6, cm, 12/24/24 13:13:00 EST, Height/Length Dosing, 79, kg, 12/24/24 13:13:00 EST, Weight Dosing Start Date: 01/07/25 Status: Ordered Quantity: 90.0 Unit: cap(s) Repeat number: 2 Start: 12-01-2023 take 1 capsule by [facility] once daily gabapentin 300 mg Cap 300 mg = 1 cap(s), Oral, Daily, # 90 cap(s), Refills(s) 1, Pharmacy: [facility], 178, cm, 07/03/24 10:05:00 EDT, Height/Length Dosing, 80.8, kg, 07/03/24 10:05:00 EDT, Weight Dosing Start Date: 07/03/24 Status: Ordered glimepiride 2 mg oral tablet (20 sources) Sulfonylurea Start: 02-18-2025 take 1 tablet by mouth once daily glimepiride 2 mg Tab 2 mg = 1 tab(s), Oral, Daily, # 90 tab(s), Refills(s) 1, Pharmacy: [facility], 178.6, cm, 02/05/25 13:36:00 EDT, Height/Length Dosing, 82.2, kg, 02/05/25 13:36:00 EDT, Weight Dosing Start Date: 02/18/25 Status: Ordered Quantity: 90.0 Unit: tab(s) Repeat number: 2 Start: 10-14-2014 glimepiride 2 mg Tab See Instructions, TAKE 1 TABLET DAILY, # 3 tab(s), Refills(s) 0, Pharmacy: [facility], 178, cm, 08/07/24 10:59:00 EDT, Height/Length Dosing, 78.2, kg, 08/07/24 10:59:00 EDT, Weight Dosing Start Date: 08/20/24 Status: Ordered Quantity: 3.0 Unit: tab(s) Repeat number: 1 Comment on above: Take [address] [facility] once daily. hydroCHLOROthiazide 25 mg oral tablet (13 sources) Thiazide Diuretic take 1 tablet by mouth once daily hydroCHLOROthiazide (HYDRODiuril) 25 MG tablet Take 1 tablet by mouth Daily Active levothyroxine sodium 0.025 mg oral tablet (20 sources) l-Thyroxine Start: 025 take 1 tablet by mouth once daily levothyroxine 25 mcg (0.025 mg) Tab See Instructions, TAKE 1 TABLET BY MOUTH DAILY ON AN EMPTY STOMACH, # 90 tab(s), Refills(s) 1, Pharmacy: [facility] [id number], 178.6, cm, 02/05/25 13:36:00 EDT, Height/Length Dosing, 82.2, kg, 02/05/25 13:36:00 EDT, Weight Dosing Start Date: 03/07/25 Status: Ordered Quantity: 90.0 Unit: tab(s) Repeat number: 1 Start: 08-20-2024 Synthroid 25 m cg(0.025 mg) Tab See Instructions, TAKE 1 TABLET DAILY ON AN EMPTY STOMACH, # 3 tab(s), Refills(s) 0, Pharmacy: [facility]/pharmacy #[id number], 178, cm, 08/07/24 10:59:00 EDT, Height/Length Dosing, 78.2, kg, 08/07/24 10:59:00 EDT, Weight Dosing Start Date: 08/20/24 Status: Ordered Quantity: 3.0 Unit: tab(s) Repeat number: 1 Start: 02-13-2024 take 1 tablet by alyssa once daily levothyroxine 25 mcg (0.025 mg) Tab 25 mcg = 1 tab(s), Oral, Daily, on an empty stomach, # 90 tab(s), Refills(s) 1, Pharmacy: [facility], 178.2, cm, 02/02/24 10:29:00 [...] empty stomach Orally Once a day Active methocarbamol 750 mg oral tablet (9 sources) Muscle Relaxant Start: 07-15-2024 take 1 tablet by mouth three times daily as needed for pain methocarbamol (Robaxin) 750 MG tablet TAKE 1 TABLET BY MOUTH 3 TIMES A DAY NEEDED FOR PAIN 07/15/2024 Active omeprazole 40 mg delayed release oral capsule (20 sources) Proton Pump Inhibitor Start: 01-07-2025 take 1 capsule by mouth once daily omeprazole 40 mg Cap-DR 40 mg = 1 cap(s), Oral, Daily, # 90 cap(s), Refills(s) 1, Pharmacy: [facility], 178.6, cm, 12/24/24 13:13:00 EST, Height/Length Dosing, 79, kg, 12/24/24 13:13:00 EST, Weight Dosing Start Date: 01/07/25 Status: Ordered Quantity: 90.0 Unit: cap(s) Repeat number: 2 Start: 12-01-2023 take 1 capsule by mo [facility] once daily omeprazole 40 mg Cap-DR 40 mg = 1 cap(s), Oral, Daily, # 90 cap(s), Refills(s) 1, Pharmacy: [facility], 178, cm, 08/28/24 14:50:00 EDT, Height/Length Dosing, 82.2, kg, 08/28/24 14:50:00 EDT, Weight Dosing Start Date: 08/30/24 Status: Ordered pravastatin sodium 40 mg oral tablet (20 sources) HMG-CoA Reductase Inhibitor Start: 10-09-2014 take 1 tablet by mouth once daily pravastatin 40 mg Tab 40 mg = 1 tab(s), Oral, Daily, # 90 tab(s), Refills(s) 3, Pharmacy: [facility], 178, cm, 09/10/24 13:01:00 EDT, Height/Length Dosing, 80.1, kg, 09/10/24 13:01:00 EDT, Weight Dosing Start Date: 10/04/24 Status: Ordered Quantity: 90.0 Unit: tab(s) Repeat number: 4 pravastatin (Pra vachol) 20 MG tablet Active [...] activity, # 5 tab(s), Refills(s) 0, Pharmacy: [facility], 178, cm, 07/03/24 10:05:00 EDT, Height/Length Dosing, 80.8, kg, 07/03/24 10:05:00 EDT, Weight Dosing Start Date: 07/03/24 Status: Ordered Quantity: 5.0 Unit: tab(s) Repeat number: 1 Start: 02-02-2024 take 1 tablet by alyssa th once daily as needed sildenafil 100 mg Tab 100 mg = 1 tab(s), Oral, Daily, PRN for erectile dysfunction, 1 hour before sexual activity, # 5 tab(s), Refills(s) 0, Pharmacy: [facility], 178.2, cm, 02/02/24 10:29:00 [...] day Active Sodium Chloride (20 sources) Start: 05-14-2025 Sodium Chlorid e 1 g oral tablet See Instructions, Take 1g BID daily, # 180 tab(s), Refills(s) 0, Pharmacy: [facility]/pharmacy #[id number], 178.6, cm, 05/09/25 8:18:00 EDT, Height/Length Dosing, 80.6, kg, 05/09/25 8:18:00 EDT, Weight Dosing Start Date: 05/14/25 Status: Ordered Quantity: 180.0 Unit: tab(s) Repeat number: 1 Start: 02-06-2025 Sodium Chlorid e 1 g oral tablet See Instructions, Take 1g BID daily, # 60 tab(s), Refills(s) 3, [id number] 178.6, cm, 02/05/25 13:36:00 EDT, Height/Length Dosing, 82.2, kg, 02/05/25 13:36:00 EDT, Weight Dosing Start Date: 02/06/25 Status: Ordered Quantity: 60.0 Unit: tab(s) Repeat number: 4 Start: 01-24-2025 take 1 tablet by alyssa th twice daily Sodium Chloride 1 g oral tablet See Instructions, 1 gram orally BID, # 180 tab(s), Refills(s) 0, Pharmacy: [facility], 178.6, cm, 01/24/25 13:29:00 EDT, Height/Length Dosing, 82.7, kg, 01/24/25 13:29:00 EDT, Weight Dosing Start Date: 01/24/25 Status: Ordered Start: 01-07-2025 take 1 tablet by alyssa th once daily Sodium Chloride 1 g oral tablet See Instructions, 1 gram orally daily, # 90 tab(s), Refills(s) 0, [id number] 178.6, cm, 12/24/24 13:13:00 EST, Height/Length Dosing, 79, kg, 12/24/24 13:13:00 EST, Weight Dosing Start Date: 01/07/25 Status: Ordered Start: 12-26-2024 take 1 tablet by alyssa th once daily Sodium Chloride 1 g oral tablet See Instructions, 1 gram orally daily, # 90 tab(s), Refills(s) 0, Pharmacy: [facility], 178.6, cm, 12/24/24 13:13:00 EST, Height/Length Dosing, 79, kg, 12/24/24 13:13:00 EST, Weight Dosing Start Date: 12/26/24 Status: Ordered Start: 12-17-2024 take 1 tablet by alyssa th once daily Sodium Chloride 1 g oral tablet See Instructions, 1 gram orally daily, # 90 tab(s), Refills(s) 0, Pharmacy: [facility], 178.6, cm, 12/17/24 15:05:00 EST, Height/Length Dosing, 78.5, kg, 12/17/24 15:05:00 EST, Weight Dosing Start Date: 12/17/24 Status: Ordered Start: 06-27-2024 take 1 tablet by alyssa th once daily Sodium Chloride 1 g oral tablet See Instructions, 1 gram orally daily, # 90 tab(s), Refills(s) 0, [id number] 178, cm, 06/11/24 12:53:00 EDT, Height/Length [...] DAY, # 90 tab(s), Refills(s) 2, [id number] 180.5, cm, 03/20/24 15:05:00 EDT, Height/Length [...] DAY, # 90 tab(s), Refills(s) 2, Pharmacy: [facility], 178.2, cm, 12/01/23 13:40:00 EST, [...] Refill(s) 0, Take one tablet daily, [facility]/pharmacy #[id number], 178.6, cm, 11/01/24 9:21:00 EST, Height/Length Dosing, 81.3, kg, 11/01/24 9:21:00 EST, Weight Dosing Start Date: 11/13/24 Status: Ordered tadalafil 2.5 mg oral tablet (1 source) Phosphodiesterase 5 Inhibitor Start: 05-07-2025 take 1 tablet by mouth once daily as needed Cialis 2.5 mg oral tablet 2.5 mg = 1 tab(s), Oral, Daily, PRN for erectile dysfunction, # 7 tab(s), Refills(s) 0, [id number] 178.6, cm, 02/05/25 13:36:00 EDT, Height/Length Dosing, 82.2, kg, 02/05/25 13:36:00 EDT, Weight Dosing Start Date: 05/07/25 Status: Ordered Quantity: 7.0 Unit: tab(s) Repeat number: 1 tamsulosin hydrochloride 0.4 mg oral capsule (20 sources) alpha-Adrenergic Dimitris Start: 05-07-2025 take 1 capsule by mouth once daily tamsulosin 0.4 mg Cap 0.4 mg = 1 cap(s), Oral, Daily, # 90 cap(s), Refills(s) 3, Pharmacy: [facility], 178.6, cm, 02/05/25 13:36:00 EDT, Height/Length Dosing, 82.2, kg, 02/05/25 13:36:00 EDT, Weight Dosing Start Date: 05/07/25 Status: Ordered Quantity: 90.0 Unit: cap(s) Repeat number: 4 Start: 10-14-2014 take 1 capsule by [facility] once daily tamsulosin 0.4 mg Cap 0.4 mg = 1 cap(s), Oral, Daily, # 90 cap(s), Refills(s) 1, Pharmacy: [facility], 178, cm, 09/10/24 13:01:00 EDT, Height/Length Dosing, 80.1, kg, 09/10/24 13:01:00 EDT, Weight Dosing Start Date: 10/22/24 Status: Ordered Quantity: 90.0 Unit: cap(s) Repeat number: 2 Comment on above: Take 1 capsule by [facility] daily at bedtime. tiZANidine 4 [...] Active turmeric extract 500 mg oral capsule (18 sources) Start: 03-06-2024 take 1 capsule by mouth once daily as needed Turmeric 500 mg oral capsule 500 mg = 1 cap(s), Oral, Daily, PRN Prophylaxis, Refills(s) 0 Start Date: 03/06/24 Status: Ordered Repeat number: 1 ubidecarenone 200 mg oral capsule (14 sources) vitamin B12 (19 sources) Vitamin B12 Start: 03-06-2024 take 50 ug by mouth once daily as needed Vitamin B12 50 mcg, Oral, Daily, PRN Prophylaxis, Refills(s) 0 Start Date: 03/06/24 Status: Ordered Repeat number: 1 Start: 03-06-2024 take 50 ug by mouth [...] tablet (20 sources) Vitamin K Antagonist Start: 03-27-2025 take 1 tablet by mouth once daily warfarin 5 mg Tab 5 mg = 1 tab(s), Oral, Daily, # 90 tab(s), Refills(s) 0, Pharmacy: [facility], 178.6, cm, 02/05/25 13:36:00 EDT, Height/Length Dosing, 82.2, kg, 02/05/25 13:36:00 EDT, Weight Dosing Start Date: 03/27/25 Status: Ordered Quantity: 90.0 Unit: tab(s) Repeat number: 1 Start: 03-06-2024 take 1 tablet by alyssa th once daily Jantoven 5 mg oral tablet 5 mg = 1 tab(s), Oral, Daily, Refills(s) 0, Blood Thinner Start Date: 08/07/24 Status: Ordered Repeat number: 1 Start: 12-01-2023 take 0.5 tablet by m [...] above: Take 1 capsule by mo [facility] twice daily. meloxicam 7.5 mg oral tablet (20 sources) Nonsteroidal Anti-inflammatory Drug Start: 04-25-2025 take 1 tablet by mouth once daily meloxicam 7.5 mg Tab 7.5 mg = 1 tab(s), Oral, Daily, TAKE 1 TABLET DAILY, # 30 tab(s), Refills(s) 2, Pharmacy: [facility], 178.6, cm, 02/05/25 13:36:00 EDT, Height/Length Dosing, 82.2, kg, 02/05/25 13:36:00 EDT, Weight Dosing Start Date: 04/25/25 Status: Ordered Quantity: 30.0 Unit: tab(s) Repeat number: 3 Start: 01-07-2025 take 1 tablet by alyssa once daily meloxicam 7.5 mg Tab 7.5 mg = 1 tab(s), Oral, Daily, TAKE 1 TABLET DAILY, # 30 tab(s), Refills(s) 2, Pharmacy: [facility], 178.6, cm, 12/24/24 13:13:00 EST, Height/Length Dosing, 79, kg, 12/24/24 13:13:00 EST, Weight Dosing Start Date: 01/07/25 Status: Ordered Quantity: 30.0 Unit: tab(s) Repeat number: 3 Start: 12-06-2024 take 1 tablet by alyssa th once daily meloxicam 7.5 mg Tab 7.5 mg = 1 tab(s), Oral, Daily, TAKE 1 TABLET DAILY, # 30 tab(s), Refills(s) 2, Pharmacy: [facility], 178.6, cm, 11/01/24 9:21:00 EST, Height/Length Dosing, 81.3, kg, 11/01/24 9:21:00 EST, Weight Dosing Start Date: 12/06/24 Status: Ordered Start: 12-01-2023 take 1 tablet by alyssa th once daily as needed meloxicam 15 mg Tab 15 mg = 1 tab(s), Oral, Daily, as needed, Refills(s) 0 Start Date: 12/01/23 Status: Ordered Problems Problem Classification Problem Date Documented Date Episodic/Chronic Abdominal hernia (11 sources) Inguinal hernia; Translations: [Unilateral inguinal hernia, without obstruction or gangrene, not specified as recurrent] Onset: 08-28-2024 Episodic Allergic reactions (1 source) Dermatitis, unspecified Episodic Cardiac dysrhythmias (20 sources) Atrial fibrillation; Translations: [Unspecified atrial fibrillation] Onset: 08-22-2014 Chronic Coronary atherosclerosis and other heart disease (1 source) Coronary atherosclerosis; Translations: [Atherosclerotic heart disease of [place] coronary artery without angina pectoris] Onset: 08-28-2024 Chronic Diabetes mellitus without complication (20 sources) Type 2 diabetes mellitus; Translations: [Type 2 diabetes mellitus without complications] Onset: 11-26-2024 Chronic Disorders of lipid metabolism (19 sources) Hyperlipidemia; Translations: [Hyperlipidemia, unspecified] 03-02-2006 Chronic E Codes: Fall (6 sources) Fall in home; Translations: [Unspecified fall, initial encounter] Onset: 11-26-2024 11-26-2024 Episodic E Codes: Fall (11 sources) Fall in home 03-20-2024 Essential hypertension (6 sources) Benign hypertension; Translations: [Essential (primary) hypertension] Onset: 11-26-2024 11-26-2024 Chronic Fluid and electrolyte disorders (18 sources) Hypo-osmolality and hyponatremia; Translations: [Hyponatremia] Episodic [...] sources) Long-term current use of anticoagulant; 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] Episodic Other aftercare (3 sources) halfway (current) use of anticoagulants Episodic Other aftercare (1 source) Post-discharge follow-up 12-17-2024 Episodic Other and unspecified benign neoplasm (17 sources) Melanocytic nevus of skin 03-08-2024 Episodic Other connective tissue disease (18 sources) Triggering of digit 02-02-2024 Episodic Other [...] 11-26-2024 02-02-2024 Chronic Other male genital disorders (19 sources) Erectile dysfunction co-occurrent and due to arterial insufficiency; Translations: [Erectile dysfunction due to arterial insufficiency] Onset: 11-26-2024 05-03-2024 Chronic Other nervous system disorders (20 sources) Carpal tunnel syndrome; Translations: [Carpal tunnel [...] Chronic Other nutritional; endocrine; and metabolic disorders (20 sources) Overweight in adulthood with body mass index of 25 or more but less than 30; Translations: [Body mass index (BMI) 25.0-25.9, adult] Onset: 11-26-2024 03-08-2024 Episodic Other nutritional; endocrine; and metabolic disorders (3 sources) Body mass index 25-29 - overweight 01-24-2025 Episodic Other screening for suspected conditions (not mental disorders or infectious disease) (7 sources) Encounter for screening for malignant neoplasm of prostate; Translations: [Melanocytic nevus of skin ] Onset: 11-26-2024 Episodic Otitis media and related conditions (5 sources) Serous otitis media 07-03-2024 Episodic Peripheral and visceral atherosclerosis (20 sources) Arteriosclerotic vascular disease; Translations: [Atherosclerotic heart disease of [place] coronary artery without angina pectoris] Onset: 11-26-2024 12-01-2023 Chronic Spondylosis; intervertebral disc disorders; other back problems (7 sources) Intervertebral disc disorder of cervical region with myelopathy; Translations: [Cervical disc disorder with myelopathy, unspecified cervical region] Onset: 2011 11-09-2021 Chronic Spondylosis; intervertebral disc disorders; other back problems (16 sources) Spasm of back muscles; Translations: [Muscle spasm of back] Onset: 11-26-2024 07-24-2024 Episodic Syncope (20 sources) Syncope and collapse; Translations: [Syncope] Onset: 04-20-2024 Episodic Thyroid disorders (20 sources) Hypothyroidism; Translations: [Hypothyroidism, unspecified] Chronic Unclassified (1 source) Encounter for screening for malignant neoplasm of prostate; Translations: [Encounter for screening for malignant neoplasm of prostate] Onset: 11-02-2023 Unclassified (1 source) 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; Translations: [halfway (current) use of anticoagulants] Onset: 06-16-2023 Unclassified (1 source) Body mass index 20-24 - normal 12-17-2024 Unclassified (6 sources) Non-smoker 12-17-2024 Results Test Name Value Interpretation Reference Range Facil ity CHEMISTRYOrdered By: Christine Stevens on 05-20-2025 Albumin DL <= 20 mg/L (U) [Mass/Vol] mg/dL Normal 0.0 - 1.9 mg/dL Remisol Chem Albumin/Creatinine DL <= 20 mg/L (U) [Mass ratio] NOT CALCULATED Invalid Interpretation Code 0.0 - 30.0 [facility] Comment on above: Interpretive Data: 3 0-300 mg/g Cr indicates an increased risk for diabetic nephropathy. >300 mg/g Cr is consistent with clinical nephropathy. U Creatinine 62.9 mg/dL Invalid Interpretation Code Remisol Chem CHEMISTRYOrdered By: SYSTEM SYSTEM on 05-20-2025 Cholesterol [Mass/Vol] 150 mg/dL Normal 120 - 200 mg/dL Remisol Chem Cholesterol in HDL [Mass/Vol] 57 mg/dL Invalid Interpretation Code Remisol Chem Comment on above: Result Comment: '>= 60 LOW RISK' '<= 40 HIGH RISK' Cholesterol in LDL [Mass/Vol] 77 mg/dL Normal <=129mg/dL Rem[facility] Chem Cholesterol in VLDL [Mass/Vol] 11 mg/dL Normal 7 - 40 mg/dL Remisol Chem Triglyceride [Mass/Vol] 53 mg/dL Normal <=149mg/dL Remisol Chem CHEMISTRYOrdered By: Roberta Julien on 05-20-2025 HbA1c (Bld) [Mass fraction] 5.6 % Normal <=5.9% [facility] ChemAutoSS [id number] 05-20-2025 HbA1c (Bld) [Mass fraction] 5.6 % Normal <=5.9 [facility] Comment on above: Performed By: #### 7 [id number] #### [facility] [address] [place] [address] Lipid Panelon 05-20-2025 Cholesterol [Mass/Vol] 150 mg/dL Normal 120-200 [facility] Comment on above: Performed By: #### 2 [id number] #### [facility] [address] [place] [address] Cholesterol in HDL [Mass/Vol] 57 mg/dL Invalid Interpretation Code [facility] Comment on above: Result Comment: '>= 60 LOW RISK' '<= 40 HIGH RISK' Performed By: #### 2 [id number] #### [facility] [address] [place] [address] Cholesterol in LDL [Mass/Vol] 77 mg/dL Normal <=129 [facility] Comment on above: Performed By: #### 2 [id number] #### [facility] [address] [place] [address] Cholesterol in VLDL [Mass/Vol] 11 mg/dL Normal 7-40 [facility] Comment on above: Performed By: #### 2 [id number] #### [facility] [address] [place] [address] Triglyceride [Mass/Vol] 53 mg/dL Normal <=149 [facility] Comment on above: Performed By: #### 2 [id number] #### [facility] [address] [place] [address] U MA/Cr Ratioon 05-20-2025 Microalb/Cr Ratio NOT CALCULATED Invalid Interpretation Code .0-30.0 [facility] Comment on above: Result Comment: 30-3 00 mg/g Cr indicates an increased risk for diabetic nephropathy. >300 mg/g Cr is consistent with clinical nephropathy. Performed By: #### 1 [id number] #### [facility] [address] [place] [address] U Creatinine 62.9 mg/dL Invalid Interpretation Code [facility] Comment on above: Performed By: #### 1 [id number] #### [facility] [address] [place] [address] U Microalb <0.7 Normal 0.0-1.9 [facility] Comment on above: Performed By: #### 1 [id number] #### [facility] [address] [place] [address] Ambulatory Visit Summaryon 0 05-09-2025 Ambulatory Visit Summary Ambulatory Visit Summary DARIEL ZABALA :1940 Visit Date:05/09/2025 Ambulatory Visit Instructions Your Diagnosis Encounter for subsequent annual wellness visit (AWV) in Medicare patient DM type 2 causing vascular disease Longstanding persistent atrial fibrillation Hard of hearing Hyperlipidemia Hypothyroid Hyponatremia History of recent fall Overweight (BMI 25.0-29.9) Your Care Team Attending Physician - Kylah Medina MD Primary Care Physician - Kylah Medina MD This Is Your Medications List Turmeric (Turmeric 500 mg oral capsule) atenolol (atenolol 25 mg Tab) cholecalciferol (D3) cyanocobalamin (Vitamin B12) finasteride (finasteride 5 mg Tab) gabapentin (gabapentin 300 mg Cap) glimepiride (glimepiride 2 mg Tab) levothyroxine (levothyroxine 25 mcg (0.025 mg) Tab) meloxicam (meloxicam 7.5 mg Tab) omeprazole (omeprazole 40 mg Cap-DR) pravastatin (pravastatin 40 mg Tab) sodium chloride (Sodium Chloride 1 g oral tablet) tadalafil (Cialis 2.5 mg oral tablet) tamsulosin (tamsulosin 0.4 mg Cap) ubiquinone (CoQ10) warfarin (warfarin 5 mg Tab) Procedures Performed Carpal tunnel release (11/19/2024), Carpal tunnel release (03/26/2024), Carpal tunnel release, Release of trigger finger, Surgery. Discharge Vitals Heart Rate (Peripheral) 58 Respiratory Rate 14 Blood Pressure 136/70 Height 178.6 cm Height 70 in Weight 80.6 kg Weight 177.692 lb BMI 25.27 What to do next Scheduled Follow-Up Appointments Tuesday 8:20 AM EDT With: Where: [address] [address]- Tuesday 10:40 AM EDT With: YANIQUE CHAMBERS CNP Where: [address] [id number]- [id number] 8:00 AM EDT With: Where: [address] [address]- You Need to Complete the Following HgbA1c, Blood, Routine collect, 05/09/25, Order for future visit, Lab Collect, DM type 2 causing vascular disease, Required & Missing, Print Label By Order Location Lipid Panel, Blood, Routine collect, 05/09/25, Order for future visit, Lab Collect, Hyperlipidemia DM type 2 causing vascular disease, Required & Missing, Print Label By Order Location Urine Microalbumin/Creati nine Ratio, Urine, Routine collect, 05/09/25, Order for future visit, Nurse collect, DM type 2 causing vascular disease, Not Required, Print Label By Order Location Medications What How Much When Instructions Unchanged [...] levothyroxine (levothyroxine 25 mcg (0.025 mg) Tab) See instructions TAKE 1 TABLET BY MOUTH DAILY ON AN EMPTY STOMACH Unchanged meloxicam (meloxicam 7.5 mg Tab) 1 Tablets By Mouth Every day TAKE 1 TABLET DAILY Unchanged omeprazole (omeprazole 40 mg Cap-DR) 1 Capsules By Mouth Every day Unchanged pravastatin (pravastatin 40 mg Tab) 1 Tablets By Mouth Every day Unchanged sodium chloride (Sodium Chloride 1 g oral tablet) See instructions Take 1g BID daily Unchanged tadalafil (Cialis 2.5 mg oral tablet) 1 Tablets By Mouth Every day as needed for for erectile dysfunction Unchanged tamsulosin (tamsulosin 0.4 mg Cap) 1 Capsules By Mouth Every day Pickup at [facility] Unchanged Turmeric (Turmeric 500 mg oral capsule) 1 Capsules By Mouth Every day as needed for Prophylaxis Unchanged ubiquinone (CoQ10) See instructions Unchanged warfarin (warfarin 5 mg Tab) 1 Tablets By Mouth Every day Pharmacy Information [facility]: [address] [facility] [address] Cristobal [id number] [phone] Allergies No Known Medication Allergies Problems Ongoing - Any problem that you are currently receiving treatment for. ASCVD (arteriosclerotic cardiovascular disease) Back spasm BMI 25.0-25.9,adult Carpal tunnel syndrome, left DM type 2 causing vascular disease Encounter for surveillance of abnormal nevi Erectile dysfunction due to arterial insufficiency Hard of hearing Hyperlipidemia Hyponatremia Hypothyroid Longstanding persistent atrial fibrillation Nonsmoker Osteoarthritis Overweight (BMI 25.0-29.9) Right inguinal hernia Syncope Trigger finger Historical - Any problem that you are no longer receiving treatment for. Body mass index (BMI) of 25.0-25.9 in a (more content not included)... Normal [facility] Family Medicine Office/Clini c Noteon 05-09-2025 Family Medicine Office/Clinic Note Family Medicine Office/Clinic Note Chief Complaint Subsequent Medicare Wellness Review of Systems PHQ Score Initial Depression Screen Score: 1 SCORE Physical Exam Vitals & Measurements HR: 58(Peripheral) RR: 14 BP: 136/70 SpO2: 98% HT: 70 in HT: 178.6 cm WT: 80.6 kg WT: 177.692 lb BMI: 25.27 Procedure I was in the office and available for consultation and to provide direct supervision at the time of this visit. I have provided supervision of the care team and have reviewed this chart and office note and agree with the plan of care. Assessment/Plan 1. Encounter for subsequent annual wellness visit (AWV) in Medicare patient (Z00.00: Encounter for general adult medical examination without abnormal findings) Patient in office today for his Medicare Wellness Visit. A customized and personalized print out of all the current AHRQ USPSTF???s recommendations for preventative services and all current CDC recommended immunizations, relevant risk recommendations and the following patient brochures were given. Reviewed What can I expect during my Medicare preventative care visit CDC-Falls Prevention and home safety screening reviewed. Patient reports 3 falls in last 12 months, voices worry about falling, exhibits no problems with sitting and standing. Pt voices understanding with keeping walk way area free of clutter to prevent tripping and/or falling. [place] Advance Directives reviewed, at home. Encouraged to bring in to scan into chart. Patient denies any problems with ADL???s and Instrumental ADL???s. Cognitive screening completed with memory and clock face drawing. Immunization Record reviewed with the patient. Discussed Shingrix vaccine and availability, informational flyer provided. Pneumonococcal vaccines received. Influenza vaccine has been received. COVID vaccines have been administered. Immunization record is up to date. Allergies and medications reviewed and up to date. Patient denies concerns with taking medication as prescribed, reviewed OTC medications with patient with medication list up to date. Blood tests were reviewed: Discussed what tests need to be updated. Labs were ordered per patient requests, he will have completed at [facility] prior to next PCP visit. Colonoscopy screenings no longer performed due to age. Reviewed concerns with bladder control over past 6 months with no concerns. Reviewed pain symptoms with patient: Patient denies pain. Reviewed all outside providers that patient follows. Last visit summary notes available in chart and/or have been requested. Follow up scheduled: 08/09/2025 AWV has been scheduled: 05/13/2026 Medicare provides yearly screening for alcohol and depression concerns. This is completed during our Medicare wellness visit for those who do not have a current diagnosis of depression or concerns with alcohol use. I spent a total of( 12) minutes on this date of service which included preparing to see the patient, face to face patient care, completing clinical documentation, obtaining and/or reviewing separately obtained history, counseling and educating the patient with handouts. Explanations were provided with reviewing questionnaires. AUDIT risk assessment screening completed, risk score(0) with patient denying concerns with use. Completed PHQ-2 risk assessment for depression with risk score(1), negative findings. Patient has been reminded to notify the provider if there would be a change or concerns with symptoms with fear, unable to sleep, worrying too much or feeling down and/or sad with lost of interest with daily activities. Will continue to monitor with screening yearly during Medicare wellness visits. 2. 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) Patient is compliant on current DM medications: Glimepiride. Does not monitor BS at home: DM stoplight handout reviewed with s/s to monitor for and report to PCP. Discussed ADA dietary recommendations with low carbs and reduce sugar intake. Patient encouraged to increase daily physical activity, adequate water intake and maintain a healthy weight. Patient is due for yearly DM foot check. Reminded patient to perform at home foot checks to prevent future complications, wash with soap and water, apply lotion to bilateral feet and in-between toes to prevent dryness and/or cracking. Wear proper fitting shoes and loose fitting socks and/or hose. Encouraged to do yearly. DM eye exams. A1C, urine microalbumin and creatinine ordered. 3. Longstanding persistent atrial fibrillation (I48.11: Longstanding persistent atrial fibrillation) Patient denies having episodes with irregular or fast/rapid heartbeat. Heart rate in office today is (58 and regular.) Taking medications as prescribed. Denies concerns with increased fatigue and/or sudden change in weight. No pain to chest or belly region. Patients are at higher risk of this condition if you smoke, are older, have diabetes, or are overweight. Voices understandin (more content not included)... Normal [facility] Comment on above: Result Comment: Elec tronically Signed By: YANIQUE CHAMBERS CNP\.br\Date and Time Signed: 05/09/25 11:11 EDT\.br\Electronically Co-Signed By: Angelica Crews\.br\Date and Time Co-Signed: 05/09/25 11:02 EDT Ambulatory Visit Summaryon 0 02-05-2025 Ambulatory Visit Summary Ambulatory Visit Summary CLIFFORDDARIEL Solitario :1940 Visit Date:02/05/2025 Ambulatory Visit Instructions Your Diagnosis Hyponatremia BMI 25.0-25.9,adult Nonsmoker Overweight (BMI 25.0-29.9) Your Care Team Attending Physician - Kylah Medina MD. Primary Care Physician - Kylah Medina MD. This Is Your Medications List Turmeric (Turmeric 500 mg oral capsule) atenolol (atenolol 25 mg Tab) cholecalciferol (D3) cyanocobalamin (Vitamin B12) finasteride (finasteride 5 mg Tab) gabapentin (gabapentin 300 mg Cap) glimepiride (glimepiride 2 mg Tab) levothyroxine (Synthroid 25 mcg(0.025 mg) Tab) meloxicam (meloxicam 7.5 mg Tab) omeprazole (omeprazole 40 mg Cap-DR) pravastatin (pravastatin 40 mg Tab) sildenafil (sildenafil 100 mg Tab) sodium chloride (Sodium Chloride 1 g oral tablet) tamsulosin (tamsulosin 0.4 mg Cap) ubiquinone (CoQ10) warfarin (Jantoven 5 mg oral tablet) Procedures Performed Carpal tunnel release (11/19/2024), Carpal tunnel release (03/26/2024), Carpal tunnel release, Release of trigger finger, Surgery. Discharge Vitals Heart Rate (Peripheral) 56 Respiratory Rate 18 Blood Pressure 132/84 Height 178.6 cm Height 70 in Weight 82.2 kg Weight 181.22 lb BMI 25.77 What to do next Scheduled Follow-Up Appointments 2024 8:00 AM EDT Where: [place] [id number] Medications What How Much When Instructions Unchanged [...] TABLET DAILY ON AN EMPTY STOMACH Unchanged meloxicam (meloxicam 7.5 mg Tab) 1 Tablets By Mouth Every day TAKE 1 TABLET DAILY Unchanged omeprazole (omeprazole 40 mg Cap-DR) 1 Capsules By Mouth Every day Unchanged pravastatin (pravastatin 40 mg Tab) 1 Tablets By Mouth Every day Unchanged sildenafil (sildenafil 100 mg Tab) 1 Tablets By Mouth Every day as needed for for erectile dysfunction 1 hour before sexual activity Unchanged sodium chloride (Sodium Chloride 1 g oral tablet) See instructions 1 gram orally BID Unchanged tamsulosin (tamsulosin 0.4 mg Cap) 1 [...] for. ASCVD (arteriosclerotic cardiovascular disease) Back spasm BMI 25.0-25.9,adult Carpal tunnel syndrome, left DM type 2 causing vascular disease Encounter for surveillance of abnormal nevi Erectile dysfunction due to arterial insufficiency Hard of hearing Hyperlipidemia Hyponatremia Hypothyroid Longstanding persistent atrial fibrillation Nonsmoker Osteoarthritis Overweight (BMI 25.0-29.9) Right inguinal hernia Syncope Trigger finger Historical - Any problem that you are no longer receiving treatment for. Body mass index (BMI) of 25.0-25.9 in adult Patient Survey You may receive a survey via text or e-mail asking about your office visit. Please share your experience with us by completing your survey. We appreciate your feedback and thank you for choosing us for your care. Normal [facility] BMPon 02-05-2025 Anion gap [Moles/Vol] 8 mmol/L Normal 6-16 [facility] Comment on above: Performed By: #### 2 [id number] #### [facility] [address] [place] [address] Calcium [Mass/Vol] 8.8 mg/dL Low 8.9-11.1 [facility] Comment on above: Performed By: #### 2 [id number] #### [facility] [address] [place] [address] Chloride [Moles/Vol] 99 mmol/L Low 101-111 [facility] Comment on above: Performed By: #### 2 [id number] #### [facility] [address] [place] [address] CO2 [Moles/Vol] 28 mmol/L Normal 21-31 [facility] Comment on above: Performed By: #### 2 [id number] #### [facility] [address] [place] [address] Creatinine [Mass/Vol] 1.0 mg/dL Normal 0.5-1.3 [facility] Comment on above: Performed By: #### 2 [id number] #### [facility] [address] [place] [address] Glucose [Mass/Vol] 104 mg/dL Normal 55-199 [facility] Comment on above: Performed By: #### 2 [id number] #### [facility] [address] [place] [address] Potassium [Moles/Vol] 4.2 mmol/L Normal 3.5-5.3 [facility] Comment on above: Performed By: #### 2 [id number] #### [facility] [address] [place] [address] Sodium [Moles/Vol] 131 mmol/L Low 135-145 [facility] Comment on above: Performed By: #### 2 [id number] #### [facility] [address] [place] [address] Urea nitrogen [Mass/Vol] 13 mg/dL Normal 5-21 [facility] Comment on above: Performed By: #### 2 [id number] #### [facility] [address] [place] [address] Urea nitrogen/Creatinine [Mass ratio] 13 No Units Normal 10-20 [facility] Comment on above: Performed By: #### 2 [id number] #### [facility] [address] [place] [address] CHEMISTRYOrdered By: SYSTEM SYSTEM on 02-05-2025 Anion gap [Moles/Vol] 8 mmol/L Normal 6 - 16 mEq/L Remisol Chem Calcium [Mass/Vol] 8.8 mg/dL Low 8.9 - 11.1 mg/dL Remisol Chem Chloride [Moles/Vol] 99 mmol/L Low 101 - 111 mmol/ L Remisol Chem CO2 [Moles/Vol] 28 mmol/L Normal 21 - 31 mmol/L Remis ol Chem Creatinine [Mass/Vol] 1.0 mg/dL Normal 0.5 - 1.3 mg/dL Remisol Chem eGFR 75 mL/min/1.73 m2 Normal >=59mL/min /1.73 m2 Remisol Chem Glucose [Mass/Vol] 104 mg/dL Normal 55 - 199 mg/dL Re misol Chem Potassium [Moles/Vol] 4.2 mmol/L Normal 3.5 - 5.3 mmol/L Remisol Chem Sodium [Moles/Vol] 131 mmol/L Low 135 - 145 mmol/L Remisol Chem Urea nitrogen [Mass/Vol] 13 mg/dL Normal 5 - 21 mg/dL Remisol Chem Urea nitrogen/Creatinine [Mass ratio] 13 mg/mg Normal 10 - 20 Remisol Chem Family Medicine Office/Clini c Noteon 02-05-2025 Family Medicine Office/Clinic Note Family Medicine Office/Clinic Note Chief Complaint Sodium Re Check The patient presents for a follow-up regarding sodium levels. HPI Staff 2wk sodium re check. Sodium Lvl: 129 mmol/L Low (01/24/25 13:58:00) Sodium Bicarb was increased to BID 01/10/25. Still having dizziness when standing up. INR 01/29/25 2.20 History of Present Illness The patient is an 84-year-old male presenting with a need to recheck sodium levels. The patient's sodium levels have demonstrated improvement, with a noted decrease in dizziness associated with previous sodium imbalance. The current regimen involves taking two tablets daily, which the patient reports as effective. Ongoing follow-up with a parachute harness rigger is planned for later in February. The patient has attended this appointment with the primary objective of verifying current sodium levels' adequacy. Review of Systems PHQ Score Initial Depression Screen Score: 0 SCORE Physical Exam Vitals & Measurements HR: 56(Peripheral) RR: 18 BP: 132/84 SpO2: 99% HT: 178.6 cm HT: 70 in WT: 82.2 kg WT: 181.22 lb BMI: 25.77 General: alert, no acute distress ENMT: oral mucosa moist Cardiovascular: Regular rate and rhythm, normal peripheral perfusion Respiratory: Lungs clear to auscultation, respirations non labored Extremities: no deformity, no trauma Neurological: oriented x 4, level of consciousness appropriate for age, CN II-XII intact, motor strength equal & normal bilaterally, speech normal Abdomen: Soft, Non-tender, Non-distended, + Bowel sounds Assessment/Plan 1. Hyponatremia (E87.1: Hypo-osmolality and hyponatremia) Symptoms are resolving however patient sodium is still low. We will treat for symptoms not number. Patient to follow-up with nephrology next month. Will recheck sodium today to make sure it stable at the 129. 2. BMI 25.0-25.9,adult (Z68.25: Body mass index [BMI] 25.0-25.9, adult) Although the patient???s focus this visit is on sodium levels, it is noted that maintaining a healthy BMI is part of ongoing care. No specific intervention for BMI was discussed during this encounter. The patient will continue with general lifestyle advice as routinely advised in managing BMI, though this was not addressed explicitly today. 3. Nonsmoker (Z78.9: Other specified health status) Please continue not to smoke 4. Overweight (BMI 25.0-29.9) (E66.3: Overweight) Diet and exercise advised 84-year-old male with history of Body Mass Index (BMI) 25.0-25.9, adult presenting with a follow-up for sodium levels. The patient's sodium levels have reportedly improved, and there is no increase in dizziness, which is indicative of effective sodium management. Planned nephrology follow-up is to occur later in February. During this visit, I discussed with the patient the status of their sodium levels, noting the improvement in symptoms such as dizziness, which suggests effective management with the current dosage of two tablets daily. There was a confirmation of an upcoming appointment with a parachute harness rigger later in February to further assess their renal health and sodium levels. The patient feels that sodium levels are stable, and today???s visit is primarily to verify that conclusion through testing. No new interventions or modifications to the treatment regimen were necessary at this point. Future plans involve continued evaluation and management of sodium levels as per nephrology's guidance. All information and management decisions were reviewed with the patient, emphasizing reassurance with current progress. Follow-up No qualifying data available Problem List/Past Medical History Ongoing ASCVD (arteriosclerotic cardiovascular disease) Back spasm BMI 25.0-25.9,adult Carpal tunnel syndrome, left DM type 2 causing vascular disease Encounter for surveillance of abnormal nevi Erectile dysfunction due to arterial insufficiency Hard of hearing Hyperlipidemia Hyponatremia Hypothyroid Longstanding persistent atrial fibrillation Nonsmoker Osteoarthritis Overweight (BMI 25.0-29.9) Right inguinal hernia Syncope Trigger finger Historical Body mass index (BMI) of 25.0-25.9 in adult Procedure/Surgical History Carpal tunnel release (11/19/2024), Carpal tunnel release (03/26/2024), Carpal tunnel release, Release of trigger finger, Surgery. Medications atenolol 25 mg Tab, See [...] mg Tab, 7.5 mg= 1 tab(s), Oral, Daily, 2 refills omeprazole 40 mg Cap-DR, 40 mg= 1 cap(s), Oral, Daily, 1 refills pravastatin 40 mg Tab, 40 mg= 1 tab(s), Oral, Daily, 3 refills sildenafil 100 mg Tab, 100 mg= 1 tab(s), Oral, Daily, PRN Sodium Chloride 1 g oral tablet, See Instructions Synthroid 25 mcg(0.025 mg) (more content not included)... Normal [facility] Comment on above: Result Comment: Elec tronically Signed By: Adam COHN, Kylah Lopez.br\Date and Time Signed: 02/05/25 13:47 EDT eGFRon 02-05-2025 eGFR 75 mL/min/1.73 m2 Normal >=59 [facility] Comment on above: Performed By: #### 1 [id number] #### [facility] Laboratory [address] [place] [address] Ambulatory Visit Summaryon 0 01-24-2025 Ambulatory Visit Summary Ambulatory Visit Summary CLIFFORDDARIEL Solitario :1940 Visit Date:01/24/2025 Ambulatory Visit Instructions Your Diagnosis BMI 25.0-25.9,adult Overweight (BMI 25.0-29.9) Nonsmoker Hyponatremia Hard of hearing Hypothyroid Your Care Team Attending Physician - Kylah Medina MD Primary Care Physician - Kylah Medina MD This Is Your Medications List sodium chloride (Sodium Chloride 1 g oral tablet) Contact prescribing physician if questions or concerns Turmeric (Turmeric 500 mg oral capsule) atenolol (atenolol 25 mg Tab) cholecalciferol (D3) cyanocobalamin (Vitamin B12) finasteride (finasteride 5 mg Tab) gabapentin (gabapentin 300 mg Cap) glimepiride (glimepiride 2 mg Tab) levothyroxine (Synthroid 25 mcg(0.025 mg) Tab) meloxicam (meloxicam 7.5 mg Tab) omeprazole (omeprazole 40 mg Cap-DR) pravastatin (pravastatin 40 mg Tab) sildenafil (sildenafil 100 mg Tab) tamsulosin (tamsulosin 0.4 mg Cap) ubiquinone (CoQ10) warfarin (Jantoven 5 mg oral tablet) Procedures Performed Carpal tunnel release (11/19/2024), Carpal tunnel release (03/26/2024), Carpal tunnel release, Release of trigger finger, Surgery. Discharge Vitals Heart Rate (Peripheral) 63 Respiratory Rate 18 Blood Pressure 128/82 Height 178.6 cm Height 70 in Weight 82.7 kg Weight 182.322 lb BMI 25.93 What to do next Scheduled Follow-Up Appointments Tuesday 1:30 PM EDT With: Kylah Medina MD Where: [address] [address] 8:00 AM EDT With: Where: [address] [address]- Medications What How Much When Instructions Changed sodium chloride (Sodium Chloride 1 g oral tablet) See instructions 1 gram orally BID Pickup at [facility] Unchanged atenolol (atenolol 25 mg Tab) See instructions take 1/ 2 tab daily Contact prescribing physician if questions or concerns Unchanged cholecalciferol (D3) See instructions Oral Daily- patient states he takes 500 once a day Contact prescribing physician if questions or concerns Unchanged cyanocobalamin (Vitamin B12) 50 Microgram By Mouth Every day as needed for Prophylaxis Contact prescribing physician if questions or concerns Unchanged finasteride (finasteride 5 mg Tab) 1 Tablets By Mouth Every day Contact prescribing physician if questions or concerns Unchanged gabapentin (gabapentin 300 mg Cap) 1 Capsules By Mouth Every day Contact prescribing physician if questions or concerns Unchanged glimepiride (glimepiride 2 mg Tab) See instructions TAKE 1 TABLET DAILY Contact prescribing physician if questions or concerns Unchanged levothyroxine (Synthroid 25 mcg(0.025 mg) Tab) See instructions TAKE 1 TABLET DAILY ON AN EMPTY STOMACH Contact prescribing physician if questions or concerns Unchanged meloxicam (meloxicam 7.5 mg Tab) 1 Tablets By Mouth Every day TAKE 1 TABLET DAILY Contact prescribing physician if questions or concerns Unchanged omeprazole (omeprazole 40 mg Cap-DR) 1 Capsules By Mouth Every day Contact prescribing physician if questions or concerns Unchanged pravastatin (pravastatin 40 mg Tab) 1 Tablets By Mouth Every day Contact prescribing physician if questions or concerns Unchanged sildenafil (sildenafil 100 mg Tab) 1 Tablets By Mouth Every day as needed for for erectile dysfunction 1 hour before sexual activity Contact prescribing physician if questions or concerns Unchanged tamsulosin (tamsulosin 0.4 mg Cap) 1 Capsules By Mouth Every day Contact prescribing physician if questions or concerns Unchanged Turmeric (Turmeric 500 mg oral capsule) 1 Capsules By Mouth Every day as needed for Prophylaxis Contact prescribing physician if questions or concerns Unchanged ubiquinone (CoQ10) See instructions Contact prescribing physician if questions or concerns Unchanged warfarin (Jantoven 5 mg oral tablet) 1 Tablets By Mouth Every day Contact prescribing physician if questions or concerns Pharmacy Information [facility] Pharm[facility]: [address] [facility] [place] [phone] Allergies No Known Medication Allergies Problems Ongoing - Any problem that you are currently receiving treatment for. ASCVD (arteriosclerotic cardiovascular disease) Back spasm BMI 25.0-25.9,adult Carpal tunnel syndrome, left DM type 2 causing vascular disease Encounter for surveillance of abnormal nevi Erectile dysfunction due to arterial insufficiency Hard of hearing Hyperlipidemia Hyponatremia Hypothyroid Longstanding persistent atrial fibrillation Nonsmoker Osteoarthritis Overweight (BMI 25.0-29.9) Right inguinal hernia Syncope Trigger finger Historical - Any problem that you are no longer receiving treatment for. Body mass index (BMI) of 25.0-25.9 in adult (more content not included)... Normal [facility] BMPon 01-24-2025 Anion gap [Moles/Vol] 9 mmol/L Normal -16 [facility] Comment on above: Performed By: #### 2 [id number] #### [facility] Laboratory [address] [place] [address] Calcium [Mass/Vol] 8.8 mg/dL Low 8.9-11.1 [facility] Comment on above: Performed By: #### 2 [id number] #### [facility] Laboratory [address] [place] [address] Chloride [Moles/Vol] 98 mmol/L Low 101-111 [facility] Comment on above: Performed By: #### 2 [id number] #### [facility] Laboratory [address] [place] [address] CO2 [Moles/Vol] 27 mmol/L Normal 21-31 [facility] Comment on above: Performed By: #### 2 [id number] #### [facility] Laboratory [address] [place] [address] Creatinine [Mass/Vol] 1.0 mg/dL Normal 0.5-1.3 [facility] Comment on above: Performed By: #### 2 [id number] #### [facility] Laboratory [address] [place] [address] Glucose [Mass/Vol] 114 mg/dL Normal 55-199 [facility] Comment on above: Performed By: #### 2 [id number] #### [facility] Laboratory [address] [place] [address] Potassium [Moles/Vol] 4.5 mmol/L Normal 3.5-5.3 [facility] Comment on above: Performed By: #### 2 [id number] #### [facility] Laboratory [address] [place] [address] Sodium [Moles/Vol] 129 mmol/L Low 135-145 [facility] Comment on above: Performed By: #### 2 [id number] #### [facility] Laboratory [address] [place] [address] Urea nitrogen [Mass/Vol] 12 mg/dL Normal 5-21 [facility] Comment on above: Performed By: #### 2 [id number] #### [facility] Laboratory [address] [place] [address] Urea nitrogen/Creatinine [Mass ratio] 12 No Units Normal 10-20 [facility] Comment on above: Performed By: #### 2 [id number] #### [facility] Laboratory [address] [place] [address] CHEMISTRYOrdered By: SYSTEM SYSTEM on 01-24-2025 Anion gap [Moles/Vol] 9 mmol/L Normal 6 [...] >=59mL/min /1.73 m2 Remisol Chem Glucose [Mass/Vol] 114 mg/dL Normal 55 - 199 mg/dL Re misol Chem Potassium [Moles/Vol] 4.5 mmol/L Normal 3.5 - 5.3 mmol/L Remisol Chem Sodium [Moles/Vol] 129 mmol/L Low 135 - 145 mmol/L Remisol Chem TSH Qn 2.69 m[IU]/L Normal 0.34 - 5.60 mcIU/mL Remisol Chem Urea nitrogen [Mass/Vol] 12 mg/dL Normal 5 - 21 mg/dL Remisol Chem Urea nitrogen/Creatinine [Mass ratio] 12 mg/mg Normal 10 - 20 Remisol Chem Family Medicine Office/Clini c Noteon 01-24-2025 Family Medicine Office/Clinic Note Family Medicine Office/Clinic Note Chief Complaint Reassess Sodium Levels Hyponatremia and hearing difficulties. HPI Staff 1m follow up to low sodium levels. Sodium Lvl: 125 mmol/L Low (01/09/25 10:09:00) Sodium Bicarb was increased to BID 01/10/25. Did have 1 episode of dizziness since then. Sodium does need to be redrawn today. Per last encounter Warfarin dose to be reassessed following INR level. INR 01/01/25- 2.50 History of Present Illness The patient is an 84-year-old male presenting with hyponatremia as the primary concern. He has been managing low sodium levels with sodium tablets taken twice daily but notes persistent low sodium. Although compliant with the medication regimen, his water intake is reportedly low, which may impact his condition. The patient has scheduled an upcoming nephrology consultation as part of his ongoing care. He also presents with unspecified hearing loss, for which he currently uses hearing aids, although they are malfunctioning. This has resulted in occasional communication difficulties due to his reluctance to wear the damaged aids, requiring a future marketing content coordinator visit to resolve this issue. Moreover, the patient is under management for hypothyroidism, consistently taking his prescribed thyroid medication as directed. He denies experiencing notable symptoms of hypothyroidism, such as coldness or heightened fatigue. His reported increased daytime sleep appears to be associated more with lifestyle factors than with hypothyroidism. - Monitoring and follow-up for hyponatremia through scheduled nephrology appointment. - Anticipated marketing content coordinator visit for hearing aid assessment and repair or replacement. - Regular thyroid function monitoring and management compliance with current medication regimen. Review of Systems PHQ Score Initial Depression Screen Score: 0 SCORE Physical Exam Vitals & Measurements HR: 63(Peripheral) RR: 18 BP: 128/82 SpO2: 98% HT: 70 in HT: 178.6 cm WT: 82.7 kg WT: 182.322 lb BMI: 25.93 General: alert, no acute distress ENMT: oral mucosa moist, nasal drainage present Cardiovascular: Regular rate and rhythm, normal peripheral perfusion Respiratory: Lungs clear to auscultation, respirations non labored Extremities: no deformity, no trauma Neurological: oriented x 4, level of consciousness appropriate for age, CN II-XII intact, motor strength equal & normal bilaterally, speech normal Abdomen: Soft, Non-tender, Non-distended, + Bowel sounds Assessment/Plan 1. BMI 25.0-25.9,adult (Z68.25: Body mass index [BMI] 25.0-25.9, adult) The patient is advised to maintain a healthy diet and increase physical activity levels. Weight management strategies were discussed, emphasizing consistent monitoring and potential interventions if the BMI increases beyond the current range. Ordered: Basic Metabolic Panel TSH With T4fr Reflex 2. Overweight (BMI 25.0-29.9) (E66.3: Overweight) Diet and exercise advised Ordered: Basic Metabolic Panel TSH With T4fr Reflex 3. Nonsmoker (Z78.9: Other specified health status) Please continue to not smoke Ordered: Basic Metabolic Panel TSH With T4fr Reflex 4. Hyponatremia (E87.1: Hypo-osmolality and hyponatremia) Despite twice-daily sodium tablet intake, the patient is experiencing ongoing hyponatremia. I have encouraged increased water consumption and ordered laboratory work to further assess sodium levels. The patient will follow up with a parachute harness rigger for further evaluation and management of hyponatremia. We will adjust the sodium supplementation based on the upcoming lab results. Ordered: Basic Metabolic Panel Lab Specimen Collect [address] TSH With T4fr Reflex 5. 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 An appointment with an appropriate marketing content coordinator has been planned to assess and replace the hearing aids. Emphasis was placed on ensuring the use and maintenance of properly functioning devices to improve communication. Ordered: Basic Metabolic Panel Body Mass Index (BMI) documented 3008F Current tobacco non-user 1036F Depression Screening Negative 3352F Discharge medications reconciled with current medications in outpatient record 1111F Medication list documented in medical record 1159F Most recent diastolic blood pressure <80 mm Hg 3078F Patient screen for fall risk: no falls in last year or 1 fall with no injury in last year 1101F Review of all meds by a prescribing practitioner or clinical pharmacist documented in EHR 1160F Systolic BP <130 mm Hg (Most Recent) 3074F TSH With T4fr Reflex 6. Hypothyroid (E03.9: Hypothyroidism, unspecified) Current management with thyroid medication is ongoing with patient adherence noted. The patient is advised to continue taking the medication on an empty stomach each morning to ensure maximum absorption. Thyroid levels will be monitored to ensure therap (more content not included)... Normal [facility] Comment on above: Result Comment: Elec tronically Signed By: Adam COHN, Kylah Lopez.br\Date and Time Signed: 01/24/25 14:16 EDT TSH With T4fr Reflexon 01-24 TSH Qn 2.69 m[IU]/L Normal 0.34-5.60 [facility] Comment on above: Performed By: #### 1 [id number] #### [facility] Laboratory [address] [place] [address] eGFRon 01-24-2025 eGFR 75 mL/min/1.73 m2 Normal >=59 [facility] Comment on above: Performed By: #### 1 [id number] #### [facility] Laboratory [address] [place] [address] Population Healthon 01-15-20 [facility] Case Information Case Priority: None Programs: -- Referral Source: Dairy Consultant Referral Reason: Care coordination Case Type: Transition Care Management Risk Score: -- Case Status: Enrolled (December 17, 2024) Date Assigned: December 17, 2024 Assigned By: Alec Rodrigez Date Enrolled: December 17, 2024 Assigned Primary Personnel: Alec Rodrigez Assigned Secondary Personnel: -- Case Physician: Adam COHN, Kylah Cole Problems Ongoing ASCVD (arteriosclerotic cardiovascular disease) Back spasm Carpal tunnel syndrome, left DM type 2 causing vascular disease Encounter for surveillance of abnormal nevi Erectile dysfunction due to arterial insufficiency Hard of hearing Hyperlipidemia Hyponatremia Hypothyroid Longstanding persistent atrial fibrillation Nonsmoker Osteoarthritis Right inguinal hernia Syncope Trigger finger Historical Body mass index (BMI) of 25.0-25.9 in adult Procedure/Surgical History Carpal tunnel release (11/19/2024), Carpal tunnel release (03/26/2024), Carpal tunnel release, Release of trigger finger, Surgery. Home Medications atenolol 25 mg Tab, See Instructions, [...] mg Tab, 7.5 mg= 1 tab(s), Oral, Daily, 2 refills omeprazole 40 mg Cap-DR, 40 mg= [...] Daily, PRN Allergies No Known Medication Allergies Social History [...] lifetime) Tobacco Use:. Never Smokeless Tobacco Use:. Household tobacco concerns: No. Yes, 12/24/2024 Family History Diabetes mellitus type 2: Mother. Screenings and Assessments 12/17/24 10:11:00 Result Name Value Comment Phone Call Monitoring Consent Agreed to continue call Phone Verification Patient Information Full name, street address and date of verified CM Program Enrollment Provides verbal consent for enrollment Goals and Interventions Care Plan Progress Note TCM#5- Called patient for final status update. States he is doing 'okay.' Patient is eating and drinking good. Patient is able to complete normal activities and chores without any difficulties. Notes he does lose things or misplaces them at times. CCM service discussed and offered to patient, he declines at this time. Patient denies any further questions or concerns. POV 01/22/25. Communication Events Date: January 14, 2025 Method: Phone call Type: Outbound Duration (min): 7 Outcome: Case discussion Contact Type: Patient Contact Name: DARIEL ZABALA Notes: TCM#5- Final tcm, see note. Created By: Alec Rodrigez Date: January 07, 2025 Method: Phone call Type: Outbound Duration (min): 14 Outcome: Case discussion Contact Type: Patient Contact Name: DARIEL ZABALA Notes: TCM#4- see tcm note. Created By: Alec Rodrigez Date: December 31, 2024 Method: Phone call Type: Outbound Duration (min): 1 Outcome: Left message-voicemail Contact Type: Patient Contact Name: DARIEL ZABALA Notes: TCM#3- attemtped to reach pt for status update, no answer, left VM for return call. Created By: Alec Rodrigez Date: December 24, 2024 Method: Phone call Type: Outbound Duration (min): 5 Outcome: Case discussion Contact Type: Patient Contact Name: DARIEL ZABALA Notes: TCM#2- see note. Created By: Alec Rodrigez Date: December 17, 2024 Method: Phone call Type: Outbound Duration (min): 16 Outcome: Case discussion Contact Type: Patient Contact Name: DARIEL ZABALA Notes: TCM#1- See tcm note. Created By: Alec Rodrigez Normal [facility] BMPon 01-09-2025 Anion gap [Moles/Vol] 9 mmol/L Normal 6-16 [facility] Comment on above: Performed By: #### 2 [id number] #### [facility] Laboratory [address] [place] [address] Calcium [Mass/Vol] 9.0 mg/dL Normal 8.9-11.1 [facility] Comment on above: Performed By: #### 2 [id number] #### [facility] Laboratory [address] [place] [address] Chloride [Moles/Vol] 93 mmol/L Low 101-111 [facility] Comment on above: Performed By: #### 2 [id number] #### [facility] Laboratory [address] [place] [address] CO2 [Moles/Vol] 27 mmol/L Normal 21-31 [facility] Comment on above: Performed By: #### 2 [id number] #### [facility] Laboratory [address] [place] [address] Creatinine [Mass/Vol] 0.8 mg/dL Normal 0.5-1.3 [facility] Comment on above: Performed By: #### 2 [id number] #### [facility] Laboratory [address] [place] [address] Glucose [Mass/Vol] 110 mg/dL Normal 55-199 [facility] Comment on above: Performed By: #### 2 [id number] #### [facility] Laboratory [address] [place] [address] Potassium [Moles/Vol] 4.1 mmol/L Normal 3.5-5.3 [facility] Comment on above: Performed By: #### 2 [id number] #### [facility] Laboratory [address] [place] [address] Sodium [Moles/Vol] 125 mmol/L Low 135-145 [facility] Comment on above: Performed By: #### 2 [id number] #### [facility] Laboratory [address] [place] [address] Urea nitrogen [Mass/Vol] 12 mg/dL Normal 5-21 [facility] Comment on above: Performed By: #### 2 [id number] #### [facility] Laboratory [address] [place] [address] Urea nitrogen/Creatinine [Mass ratio] 15 No Units Normal 10-20 [facility] Comment on above: Performed By: #### 2 [id number] #### [facility] Laboratory [address] [place] [address] CHEMISTRYOrdered By: SYSTEM SYSTEM on 01-09-2025 Anion gap [Moles/Vol] 9 mmol/L Normal 6 - 16 mEq/L Remisol Chem Calcium [Mass/Vol] 9.0 mg/dL Normal 8.9 - 11.1 mg/dL Remisol Chem Chloride [Moles/Vol] 93 mmol/L Low 101 - 111 mmol/ L Remisol Chem CO2 [Moles/Vol] 27 mmol/L Normal 21 - 31 mmol/L Remis ol Chem Creatinine [Mass/Vol] 0.8 mg/dL Normal 0.5 - 1.3 mg/dL Remisol Chem eGFR 88 mL/min/1.73 m2 Normal >=59mL/min /1.73 m2 Remisol Chem Glucose [Mass/Vol] 110 mg/dL Normal 55 - 199 mg/dL Re misol Chem Potassium [Moles/Vol] 4.1 mmol/L Normal 3.5 - 5.3 mmol/L Remisol Chem Sodium [Moles/Vol] 125 mmol/L Low 135 - 145 mmol/L Remisol Chem Urea nitrogen [Mass/Vol] 12 mg/dL Normal 5 - 21 mg/dL Remisol Chem Urea nitrogen/Creatinine [Mass ratio] 15 mg/mg Normal 10 - 20 Remisol Chem eGFRon 01-09-2025 eGFR 88 mL/min/1.73 m2 Normal >=59 [facility] Comment on above: Performed By: #### 1 [id number] #### [facility] Laboratory [address] [place] [address] [facility] 01-07-20 [facility] Case Information Case Priority: None Programs: -- Referral Source: Dairy Consultant Referral Reason: Care coordination Case Type: Transition Care Management Risk Score: -- Case Status: Enrolled (December 17, 2024) Date Assigned: December 17, 2024 Assigned By: Alec Rodrigez Date Enrolled: December 17, 2024 Assigned Primary Personnel: Alec Rodrigez Assigned Secondary Personnel: -- Case Physician: Adam COHN, Kylah Cole Problems Ongoing ASCVD (arteriosclerotic cardiovascular disease) Back spasm Carpal tunnel syndrome, left DM type 2 causing vascular disease Encounter for surveillance of abnormal nevi Erectile dysfunction due to arterial insufficiency Hard of hearing Hyperlipidemia Hyponatremia Hypothyroid Longstanding persistent atrial fibrillation Nonsmoker Osteoarthritis Right inguinal hernia Syncope Trigger finger Historical Body mass index (BMI) of 25.0-25.9 in adult Procedure/Surgical History Carpal tunnel release (11/19/2024), Carpal tunnel release (03/26/2024), Carpal tunnel release, Release of trigger finger, Surgery. Home Medications atenolol 25 mg Tab, See Instructions, [...] mg Tab, 7.5 mg= 1 tab(s), Oral, Daily, 2 refills omeprazole 40 mg Cap-DR, 40 mg= [...] Daily, PRN Allergies No Known Medication Allergies Social History [...] lifetime) Tobacco Use:. Never Smokeless Tobacco Use:. Household tobacco concerns: No. Yes, 12/24/2024 Family History Diabetes mellitus type 2: Mother. Screenings and Assessments 12/17/24 10:11:00 Result Name Value Comment Phone Call Monitoring Consent Agreed to continue call Phone Verification Patient Information Full name, street address and date of verified CM Program Enrollment Provides verbal consent for enrollment Goals and Interventions Care Plan Progress Note TCM#4- Spoke with patient, states he is doing 'okay.' Notes no changes to his health. States his insurance changes as of 01-12, he'll be with [employer]. Patient has medication refill request, proposed to provider. Patient denies any further needs at this time. Communication Events Date: January 07, 2025 Method: Phone call Type: Outbound Duration (min): 14 Outcome: Case discussion Contact Type: Patient Contact Name: DARIEL ZABALA Notes: TCM#4- see tcm note. Created By: Alec Rodrigez Date: December 31, 2024 Method: Phone call Type: Outbound Duration (min): 1 Outcome: Left message-voicemail Contact Type: Patient Contact Name: DARIEL ZABALA Notes: TCM#3- attemtped to reach pt for status update, no answer, left VM for return call. Created By: Alec Rodrigez Date: December 24, 2024 Method: Phone call Type: Outbound Duration (min): 5 Outcome: Case discussion Contact Type: Patient Contact Name: DARIEL ZABALA Notes: TCM#2- see note. Created By: Alec Rodrigez Date: December 17, 2024 Method: Phone call Type: Outbound Duration (min): 16 Outcome: Case discussion Contact Type: Patient Contact Name: DARIEL ZABALA Notes: TCM#1- See tcm note. Created By: Alec Rodrigez Normal [facility] BMPon 12-31-2024 Anion gap [Moles/Vol] 10 mmol/L Normal 6-16 [facility] Comment on above: Performed By: #### 2 [id number] #### [facility] [address] [place] [address] Calcium [Mass/Vol] 9.3 mg/dL Normal 8.9-11.1 [facility] Comment on above: Performed By: #### 2 [id number] #### [facility] [address] [place] [address] Chloride [Moles/Vol] 95 mmol/L Low 101-111 [facility] Comment on above: Performed By: #### 2 [id number] #### [facility] [address] [place] [address] CO2 [Moles/Vol] 27 mmol/L Normal 21-31 [facility] Comment on above: Performed By: #### 2 [id number] #### [facility] [address] [place] [address] Creatinine [Mass/Vol] 0.8 mg/dL Normal 0.5-1.3 [facility] Comment on above: Performed By: #### 2 [id number] #### [facility] [address] [place] [address] Glucose [Mass/Vol] 90 mg/dL Normal 55-199 [facility] Comment on above: Performed By: #### 2 [id number] #### [facility] [address] [place] [address] Potassium [Moles/Vol] 4.3 mmol/L Normal 3.5-5.3 [facility] Comment on above: Performed By: #### 2 [id number] #### [facility] [address] [place] [address] Sodium [Moles/Vol] 128 mmol/L Low 135-145 [facility] Comment on above: Performed By: #### 2 [id number] #### [facility] [address] [place] [address] Urea nitrogen [Mass/Vol] 13 mg/dL Normal 5-21 [facility] Comment on above: Performed By: #### 2 [id number] #### [facility] [address] [place] [address] Urea nitrogen/Creatinine [Mass ratio] 16 No Units Normal 10-20 [facility] Comment on above: Performed By: #### 2 [id number] #### [facility] [address] [place] [address] CHEMISTRYOrdered By: SYSTEM SYSTEM on 12-31-2024 Anion gap [Moles/Vol] 10 mmol/L Normal 6 - 16 mEq/L Remisol Chem Calcium [Mass/Vol] 9.3 mg/dL Normal 8.9 - 11.1 mg/dL Remisol Chem Chloride [Moles/Vol] 95 mmol/L Low 101 - 111 mmol/ L Remisol Chem CO2 [Moles/Vol] 27 mmol/L Normal 21 - 31 mmol/L Remis ol Chem Creatinine [Mass/Vol] 0.8 mg/dL Normal 0.5 - 1.3 mg/dL Remisol Chem eGFR 88 mL/min/1.73 m2 Normal >=59mL/min /1.73 m2 Remisol Chem Glucose [Mass/Vol] 90 mg/dL Normal 55 - 199 mg/dL Re misol Chem Potassium [Moles/Vol] 4.3 mmol/L Normal 3.5 - 5.3 mmol/L Remisol Chem Sodium [Moles/Vol] 128 mmol/L Low 135 - 145 mmol/L Remisol Chem Urea nitrogen [Mass/Vol] 13 mg/dL Normal 5 - 21 mg/dL Remisol Chem Urea nitrogen/Creatinine [Mass ratio] 16 mg/mg Normal 10 - 20 Remisol Chem eGFRon 12-31-2024 eGFR 88 mL/min/1.73 m2 Normal >=59 [facility] Comment on above: Performed By: #### 1 [id number] #### [facility] [address] [place] [address] Family Medicine Office/Clini c Noteon 12-24-2024 Family Medicine Office/Clinic Note Family Medicine Office/Clinic Note Chief Complaint 1wk follow up Concerns about sodium levels and evaluation of overall health status. HPI Staff 1wk follow up [facility] referred to nephrology. Has appt 03/20/25 w/Dr Lara. BUN: 10 mg/dL (12/17/24 15:28:00) Calcium Lvl: 9.1 mg/dL (12/17/24 15:28:00) Chloride: 98 mmol/L Low (12/17/24 15:28:00) CO2: 27 mmol/L (12/17/24 15:28:00) Creatinine: 0.9 mg/dL (12/17/24 15:28:00) eGFR: 85 mL/min/1.73 m2 (12/17/24 15:28:00) Glucose Lvl: 113 mg/dL (12/17/24 15:28:00) Potassium Lvl: 3.9 mmol/L (12/17/24 15:28:00) Sodium Lvl: 131 mmol/L Low (12/17/24 15:28:00) No new concerns at this time. History of Present Illness The patient is an 84-year-old male presenting with concerns regarding hyponatremia and a comprehensive assessment of his chronic medical conditions. The patient has a documented history of hypo-osmolality and hyponatremia, for which he was advised to recheck sodium levels to ensure no further interventions were necessary. The patient expresses some anxiety about sodium level fluctuations, highlighting the need for ongoing monitoring. In addition, the patient has longstanding persistent atrial fibrillation managed with atenolol for rate control and warfarin for anticoagulation. Recent INR testing revealed a level of 1.76. The patient's atrial fibrillation is a crucial component of his medical history, requiring regular monitoring and management to prevent complications. The patient's back muscle spasms are noted as a recurrent issue. The spasms appear to be a chronic condition requiring periodic assessment and management to alleviate discomfort and maintain functionality. Hearing loss is acknowledged as unspecified, with the patient using a hearing aid on one side. The hearing aid status needs continual evaluation to address any hearing-related obstacles. Current management appears to be keeping hearing symptoms stable, but adjustments may be warranted as hearing changes occur. - Monitoring of sodium levels due to hyponatremia. - Regular INR monitoring for anticoagulation management in atrial fibrillation. - Hearing evaluation and hearing aid functionality assessment. - Continued use of prescribed medications for chronic conditions. Review of Systems PHQ Score Initial Depression Screen Score: 0 SCORE Physical Exam Vitals & Measurements T: 36.8 ???C(Tympanic) HR: 63(Peripheral) RR: 18 BP: 124/80 SpO2: 100% HT: 70 in HT: 178.6 cm WT: 79 kg WT: 174.165 lb BMI: 24.77 General: alert, no acute distress ENMT: oral mucosa moist Cardiovascular: Irregular rate and rhythm due to AFib, normal peripheral perfusion Respiratory: Lungs clear to auscultation, respirations non labored Extremities: no deformity, no trauma Neurological: oriented x 4, level of consciousness appropriate for age, CN II-XII intact, motor strength equal & normal bilaterally, speech normal Abdomen: Soft, Non-tender, Non-distended, + Bowel sounds Assessment/Plan 1. Longstanding persistent atrial fibrillation (I48.11: Longstanding persistent atrial fibrillation) Continue atenolol for rate control and manage anticoagulation with warfarin. Reassess warfarin dose based on INR results and adjust as required. Ordered: Basic Metabolic Panel 2. Back spasm (M62.830: Muscle spasm of back) Continue physical therapy as necessary and adjust pain management based on the severity of symptoms. Ordered: Basic Metabolic Panel 3. Hard of hearing (H91.90: Unspecified hearing loss, unspecified ear) Continue using hearing aid; evaluate periodically for effectiveness and potential need for modification. Ordered: Basic Metabolic Panel 4. Hyponatremia (E87.1: Hypo-osmolality and hyponatremia) Monitor sodium levels closely; recheck in one week as planned. Adjust fluids/electrolyte replacement therapy depending on test outcomes. Ordered: Basic Metabolic Panel 5. Right inguinal hernia (K40.90: Unilateral inguinal hernia, without obstruction or gangrene, not specified as recurrent) Still present, but no issues at this time. Ordered: Basic Metabolic Panel 6. Nonsmoker (Z78.9: Other specified health status) Please continue to not smoke. Ordered: Basic Metabolic Panel 84-year-old male with a history of longstanding persistent atrial fibrillation and hypo-osmolality and hyponatremia presenting with concerns regarding unstable sodium levels. The patient exhibits a stable chronic condition profile with muscle spasms of the back and unspecified hearing loss, requiring regular evaluation and adjustment of treatment plans. The INR level is slightly below target, indicating adjustments may be necessary. During today's visit, I discussed with the patient the importance of monitoring sodium levels due to his history of hyponatremia and ensuring no further interventions would be necessary unless levels remain abnormal. We decided conjointly to retest labs in one week to keep track of any significant changes. We (more content not included)... Normal [facility] Comment on above: Result Comment: Elec tronically Signed By: Kylah Medina MD\.br\Date and Time Signed: 12/24/24 13:31 [facility] 12-24-19 [facility] Case Information Case Priority: None Programs: -- Referral Source: Dairy Consultant Referral Reason: Care coordination Case Type: Transition Care Management Risk Score: -- Case Status: Enrolled (December 17, 2024) Date Assigned: December 17, 2024 Assigned By: Alec Rodrigez Date Enrolled: December 17, 2024 Assigned Primary Personnel: Alec Rodrigez Assigned Secondary Personnel: -- Case Physician: Kylah Medina MD Problems Ongoing ASCVD (arteriosclerotic cardiovascular disease) Back spasm BMI 24.0-24.9, adult Carpal tunnel syndrome, left DM type 2 causing vascular disease Encounter for surveillance of abnormal nevi Erectile 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 Home Medications atenolol 25 mg Tab, See Instructions, [...] mg Tab, 7.5 mg= 1 tab(s), Oral, Daily, 2 refills omeprazole 40 mg Cap-DR, 40 mg= [...] Daily, PRN Allergies No Known Medication Allergies Social History [...] lifetime) Tobacco Use:. Never Smokeless Tobacco Use:. Household tobacco concerns: No. Yes, 12/17/2024 Family History Diabetes mellitus type 2: Mother. Screenings and Assessments 12/17/24 10:11:00 Result Name Value Comment Phone Call Monitoring Consent Agreed to continue call Phone Verification Patient Information Full name, street address and date of verified CM Program Enrollment Provides verbal consent for enrollment Goals and Interventions Care Plan Progress Note TCM#2- Patient states he is doing 'alright.' He has an OV this afternoon, inquiring how often he should have sodium checked? Patient does not have an appt with nephrology until February. Patient continues his sodium chloride as prescribed. Patient denies any lightheadedness or dizziness. Denies any weakness/ fatigue. No change in sleep pattern noted. Patient denies any further questions or concerns. Communication Events Date: December 24, 2024 Method: Phone call Type: Outbound Duration (min): 5 Outcome: Case discussion Contact Type: Patient Contact Name: CLIFFORDKassi DARIEL Notes: TCM#2- see note. Created By: Alec Rodrigez Date: December 17, 2024 Method: Phone call Type: Outbound Duration (min): 16 Outcome: Case discussion Contact Type: Patient Contact Name: DARIEL ZABALA Notes: TCM#1- See tcm note. Created By: Alec Rodrigez Normal [facility] BMPon 12-18-2024 Anion gap [Moles/Vol] 10 mmol/L Normal 6-16 [facility] Comment on above: Performed By: #### 2 [id number] #### [facility] [address] [place] [address] Calcium [Mass/Vol] 9.1 mg/dL Normal 8.9-11.1 [facility] Comment on above: Performed By: #### 2 [id number] #### [facility] [address] [place] [address] Chloride [Moles/Vol] 98 mmol/L Low 101-111 [facility] Comment on above: Performed By: #### 2 [id number] #### [facility] [address] [place] [address] CO2 [Moles/Vol] 27 mmol/L Normal 21-31 [facility] Comment on above: Performed By: #### 2 [id number] #### [facility] [address] [place] [address] Creatinine [Mass/Vol] 0.9 mg/dL Normal 0.5-1.3 [facility] Comment on above: Performed By: #### 2 [id number] #### [facility] [address] [place] [address] Glucose [Mass/Vol] 113 mg/dL Normal 55-199 [facility] Comment on above: Performed By: #### 2 [id number] #### [facility] [address] [place] [address] Potassium [Moles/Vol] 3.9 mmol/L Normal 3.5-5.3 [facility] Comment on above: Performed By: #### 2 [id number] #### [facility] [address] [place] [address] Sodium [Moles/Vol] 131 mmol/L Low 135-145 [facility] Comment on above: Performed By: #### 2 [id number] #### [facility] [address] [place] [address] Urea nitrogen [Mass/Vol] 10 mg/dL Normal 5-21 [facility] Comment on above: Performed By: #### 2 [id number] #### [facility] [address] [place] [address] Urea nitrogen/Creatinine [Mass ratio] 11 No Units Normal 10-20 [facility] Comment on above: Performed By: #### 2 [id number] #### [facility] [address] [place] [address] eGFRon 12-18-2024 eGFR 85 mL/min/1.73 m2 Normal >=59 [facility] Comment on above: Performed By: #### 1 [id number] #### [facility] [address] [place] [address] Family Medicine Office/Clini c Noteon 12-17-2024 Family Medicine Office/Clinic Note Family Medicine Office/Clinic Note Chief Complaint ER follow up Confusion and persistent fatigue post-discharge with a concern for recurrent hyponatremia HPI Staff Pt presents today for ER follow up. Hospital: [facility] Visit date:12/14/24 Symptoms the patient presented with: altered mental status & weakness. CXR & CT Brain completed 12/14/24. Current concerns: Sodium medication. History of Present Illness The patient is an 84-year-old male presenting with concerns of confusion and persistent fatigue following a recent hospital discharge. The patient's history reveals recurrent episodes of hyponatremia, which have previously necessitated emergency evaluation due to profound weakness and confusion. Despite adherence to prescribed sodium tablets, the etiology of sodium level fluctuations remains unclear, posing a challenge in achieving stabilization. 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 The longstanding persistent atrial fibrillation is noted to be stable without any reported issues. The patient denies substantial alcohol consumption, although there is an acknowledgment of regular wine intake. Prior medical interactions have included evaluations by nephrology, indicating a possible need for further consult due to sodium management. The patient's hypothyroidism and overall endocrine health, including thyroid levels, are managed with existing therapeutic interventions, yet require periodic monitoring given the effects on metabolic stability. The patient's BMI remains between 24.0-24.9, suggesting relatively stable weight maintenance. Further complicating the patient's clinical course is a recently performed carpal tunnel surgery, which although not directly impacting current medical objectives, is noteworthy for postoperative care. - A1c level: 5.4% indicating good diabetic control - Recent carpal tunnel surgery noted - Regular assessments of blood pressure and weight management given BMI between 24.0-24.9 - Follow-up with nephrology recommended for sodium level management - Awareness and moderate counseling on alcohol consumption (primarily wine) Review of Systems PHQ Score Initial Depression Screen Score: 0 SCORE Physical Exam Vitals & Measurements T: 36.8 ???C(Tympanic) HR: 61(Peripheral) RR: 18 BP: 118/74 SpO2: 97% HT: 70 in HT: 178.6 cm WT: 78.5 kg WT: 173.063 lb BMI: 24.61 General: alert, no acute distress ENMT: oral mucosa moist Cardiovascular: Regular rate and rhythm, normal peripheral perfusion Respiratory: Lungs clear to auscultation, respirations non labored Extremities: no deformity, no trauma Neurological: oriented x 4, level of consciousness appropriate for age, CN II-XII intact, motor strength equal & normal bilaterally, speech normal, altered mental status noted Abdomen: Soft, Non-tender, Non-distended, + Bowel sounds Assessment/Plan 1. Hospital discharge follow-up (Z09: Encounter for follow-up examination after completed treatment for conditions other than malignant neoplasm) Reviewed D/C summary and TCM notes. Pt needs to follow up with Nephrology. Ordered: Basic Metabolic Panel [facility] [place] Referral 2. 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 Ordered: Basic Metabolic Panel [facility] External Ambulatory Referral 3. Longstanding persistent atrial fibrillation (I48.11: Longstanding persistent atrial fibrillation) Maintain current management regime, evaluate rhythm control, and anticoagulation status during follow-up visits. Ordered: Basic Metabolic Panel [facility] External Ambulatory Referral 4. Hyponatremia (E87.1: Hypo-osmolality and hyponatremia) Continue monitoring sodium levels closely, with recommended nephrology review for stabilization strategy. No significant lifestyle factors contributing to sodium imbalance noted. Ordered: Basic Metabolic Panel [facility] External Ambulatory Referral 5. Hypothyroid (E03.9: Hypothyroidism, unspecified) Monitor thyroid levels to ensure therapeutic levels are maintained, adjust medications if indicated by lab abnormalities. Ordered: Basic Metabolic Panel [facility] External Ambulatory Referral 6. Nonsmoker (Z78.9: Other specified health status) Please continue to not smoke. Ordered: Basic Metabolic Panel Orders: fluticasone nasal, See Instructions, 48 mL, Refill(s) 1, USE 1 SPRAY IN EACH NOSTRIL TWICE A DAY, [id number], 178, cm, 08/28/24 14:50:00 EDT, Height/Length Dosing, 82.2, kg, 08/28/24 14:50:00 EDT, Weight Dosing sodium chloride, See Instructions, 1 gram orally daily, # 90 tab(s), Refills(s) 0, Pharmacy: [facility], 178.6, cm, 12/17/24 15:05:00 EST, Height/Length Dosing, 78.5, kg, 12/17/24 15: (more content not included)... Normal [facility] Comment on above: Result Comment: Elec tronically Signed By: Adam COHN, Kylah Lopez.br\Date and Time Signed: 12/17/24 15:29 EST [facility] 12-17-19 [facility] Case Information Case Priority: None Programs: -- Referral Source: Dairy Consultant Referral Reason: Care coordination Case Type: Transition Care Management Risk Score: -- Case Status: Enrolled (December 17, 2024) Date Assigned: December 17, 2024 Assigned By: Alec Rodrigez Date Enrolled: December 17, 2024 Assigned Primary Personnel: Alec Rodrigez Assigned Secondary Personnel: -- Case Physician: Kylah Medina MD Ongoing ASCVD (arteriosclerotic cardiovascular disease) Back spasm [...] in adult Procedure/Surgical History Carpal tunnel release (11/19/2024), Carpal tunnel release (03/26/2024), Carpal tunnel release, Release of trigger finger, Surgery. Home Medications atenolol 25 mg Tab, See Instructions, 1 refills CoQ10, See Instructions, PRN D3, See Instructions finasteride 5 mg Tab, 5 mg= 1 tab(s), Oral, Daily, 1 refills fluticasone Nasal 0.05 mg/inh Tulsita, See Instructions, Self Directed gabapentin 300 mg Cap, 300 mg= 1 cap(s), Oral, Daily, 1 refills glimepiride 2 mg Tab, See Instructions Jantoven 5 mg oral tablet, 5 mg= 1 tab(s), Oral, Daily meloxicam 7.5 mg Tab, 7.5 mg= 1 tab(s), Oral, Daily, 2 refills omeprazole 40 mg Cap-DR, 40 mg= 1 cap(s), Oral, Daily, 1 refills pravastatin 40 mg Tab, 40 mg= 1 tab(s), Oral, Daily, 3 refills sildenafil 100 mg Tab, 100 mg= 1 tab(s), Oral, Daily, PRN Sodium Chloride 1 g oral tablet, See Instructions Sodium Chloride 1000 mg oral tablet, soluble, See Instructions Synthroid 25 mcg(0.025 mg) Tab, See Instructions tamsulosin 0.4 mg Cap, 0.4 mg= 1 cap(s), Oral, Daily, 1 refills Turmeric 500 mg oral capsule, 500 mg= 1 cap(s), Oral, Daily, PRN Vitamin B12, 50 mcg, Oral, Daily, PRN Allergies No Known Medication Allergies Social History [...] lifetime) Tobacco Use:. Never Smokeless Tobacco Use:., 11/01/2024 Family History Diabetes mellitus type 2: Mother. Screenings and Assessments 12/17/24 10:11:00 Result Name Value Comment Phone Call Monitoring Consent Agreed to continue call Phone Verification Patient Information Full name, street address and date of verified CM Program Enrollment Provides verbal consent for enrollment Goals and Interventions Care Plan Progress Note Admit Date: 12/14/24 [facility] Date of Discharge: 12/15/24 Follow-up appointment scheduled? yes, TCM f/u 12/17/24 at 1500 Did you understand your discharge instructions? yes Are you able to follow them? yes Did you receive new medications? no Have you filled the Rx's? n/a Are you taking them as prescribed? n/a Are you having difficulty eating or swallowing your pills? no Are you having any stomach upset, diarrhea or constipation? no How are you sleeping? good Are you having any pain? no Do you have everything you need at home to care for yourself? yes Do you have Home Health? no Called patient for initial Transitional Care Management Program call. Readmission risk score is unavailable. Reviewed d/c instructions and dx of: hyponatremia, AMS, DM, PAF, hypothyroid. CN attempted to reconcile medications, patient states he gets mixed up and wants to bring his bottles to follow up OV. Patient states he does take his medications as prescribed and denies missing any doses including sodium chloride. Patient states he feels 'alright.' Denies any lightheadedness or dizziness. Denies any weakness. Notes he has been having a harder time with simple math, going on for 'a little while.' Patient notes this is frustrating and lately has been driving him crazy. Patient does not follow with neurology and would like to discuss his confusion with PCP (message sent). Patient had left carpel tunnel surgery on 11/19/[address] Hernández. Notes he does continue to have numbness and stiffness to fingers in left hand since the surgery, notes no change. Notes a post surgical follow up is scheduled with Dr. Hernández. Patient denies any bowel or urinary issues.. Patient is eating and drinking good. Reports his BS have been 'good.' Notes he has been doing a lot more laying around than normal d/t the cold wea (more content not included)... Normal [facility] Main OR Intraoperative Recor don 11-20-2024 Main OR Intraoperative Record Main OR Intraoperative Record IntraOp Document Type FT Summary Primary Physician: Axel Hernández DO Finalized Date/Time: 11/20/24 07:56:52 Pt. Name: DARIEL ZABALA/Sex: 1940 Male Med Rec #: [id number] Physician: Axel Hernández DO Financial #: [id number] Pt. Type: A Room/Bed: [place] [address] Admit/Disch: 11/19/24 09:28:12 - 11/19/24 14:30:00 Institution: [...] Pablo DO, CST, James W Role Performed JULIETA Surgeon - Primary FURNITURE UPHOLSTERER/SA Time In 11/19/24 12:10:00 11/19/24 12:23:00 11/19/24 12:10:00 Time Out 11/19/24 12:37:00 11/19/24 12:35:00 11/19/24 12:37:00 Procedure CARPAL TUNNEL CARPAL TUNNEL CARPAL TUNNEL RELEASE(Left) RELEASE(Left) RELEASE(Left) Comments DR LOU SUPERVISING Last Modified By: Ambrocio Borges Terry T Sweene, Terry T 11/19/24 12:45:19 11/19/24 12:53:03 11/19/24 12:45:19 Entry 4 Entry 5 Case Attendee Ambrocio Borges Laura C Role Performed Exhaust Machine Operator - Primary Scrub - Primary Time In [...] Out Ethan Sanchez CRNA, Given Participants Edgar DO, Giana Lobato FURNITURE UPHOLSTERER, Rudy Woodward Laura C, Ambrocio Borges Time [...] and tissue Entry 1 Skin Integrity Intact, [place], Warm, & Skin Abnormality No Dry Outcomes [...] Hand Ta (more content not included)... Normal [facility] Operative Reporton Operative Report Operative Report SURGERY [...] count correct SPECIMEN: None PATIENT CONDITION: Satisfactory Axel Hernández D.O. ca Dictated: 11/19/2024 [id number] Transcribed: 11/19/2024 cc:Kylah Medina M.D. Normal [facility] Comment on above: Result Comment: Elec tronically Signed By: Axel Hernández DO\.br\Date and Time Signed: 11/20/24 16:36 EST BMPon 11-19-2024 Anion gap [Moles/Vol] 10 mmol/L Normal 6-16 [facility] Comment on above: Order Comment: To be drawn day of surgery. Performed By: #### 2 [id number] #### [facility] Laboratory [address] [place] [address] Calcium [Mass/Vol] 9.2 mg/dL Normal 8.9-11.1 [facility] Comment on above: Order Comment: To be drawn day of surgery. Performed By: #### 2 [id number] #### [facility] [address] [place] [address] Chloride [Moles/Vol] 98 mmol/L Low 101-111 [facility] Comment on above: Order Comment: To be drawn day of surgery. Performed By: #### 2 [id number] #### [facility] [address] [place] [address] CO2 [Moles/Vol] 26 mmol/L Normal 21-31 [facility] Comment on above: Order Comment: To be drawn day of surgery. Performed By: #### 2 [id number] #### [facility] [address] [place] [address] Creatinine [Mass/Vol] 0.9 mg/dL Normal 0.5-1.3 [facility] Comment on above: Order Comment: To be drawn day of surgery. Performed By: #### 2 [id number] #### [facility] [address] [place] [address] Glucose [Mass/Vol] 77 mg/dL Normal 55-199 [facility] Comment on above: Order Comment: To be drawn day of surgery. Performed By: #### 2 [id number] #### [facility] [address] [place] [address] Potassium [Moles/Vol] 4.2 mmol/L Normal 3.5-5.3 [facility] Comment on above: Order Comment: To be drawn day of surgery. Performed By: #### 2 [id number] #### [facility] [address] [place] [address] Sodium [Moles/Vol] 130 mmol/L Low 135-145 [facility] Comment on above: Order Comment: To be drawn day of surgery. Performed By: #### 2 [id number] #### [facility] [address] [place] [address] Urea nitrogen [Mass/Vol] 8 mg/dL Normal 5-21 [facility] Comment on above: Order Comment: To be drawn day of surgery. Performed By: #### 2 [id number] #### [facility] [address] [place] [address] Urea nitrogen/Creatinine [Mass ratio] 9 No Units Low 10-20 [facility] Comment on above: Order Comment: To be drawn day of surgery. Performed By: #### 2 [id number] #### [facility] [address] [place] [address] CHEMISTRYOrdered By: Lab ROP User on 11-19-2024 Glucose [Mass/Vol] 78 mg/dL Normal 55 - 99 mg/dL [facility] C POC Subsection Comment on above: Result Comment: Hilary danna Meter POC Username MAYA SOTELO Invalid Interpretation Code [facility] POC Subsection Sodium [Moles/Vol] [id number] mmol/L Invalid Interpretation Code [facility] POC Subsection Sodium [Moles/Vol] [id number] mmol/L Invalid Interpretation Code [facility] POC Subsection CHEMISTRYOrdered By: SYSTEM SYSTEM on [...] 38.5 s High 25.1 - 36.5 second(s) [facility] Auto Coag Comment on above: Interpretive Data: [...] the same coagulation reagent and instrumentation as [facility]. Currently there are no coagulation studies available worldwide for children to 14 days, and no normal ranges. Heparin therapeutic range (represented by Anti-Factor Xa activity of 0.2 - 0.4 U/mL) corresponds to PTT of 56.6 - 109.0 sec. INR Coag (PPP) [Relative time] 1.11 {INR} Invalid Interpretation Code [facility] Auto Coag Comment on above: Interpretive Data: I NR results are specifically intended to assess patients stabilized on long-term Anticoagulation therapy suggested INR s Less Intensive Anticoagulation 2.0 3.0 Conventional Range 3.0 4.5 PT Coag (PPP) [Time] 12.5 s Normal 9.4 - 1 2.5 second(s) [facility] Auto Coag Comment on above: Interpretive Data: [...] the same coagulation reagent and instrumentation as [facility]. Currently there are no coagulation studies available worldwide for children to 14 days, and no normal ranges. Capillary Glucose POCon -0 Glucose [Mass/Vol] 78 mg/dL Normal 55-99 [facility] Comment on above: Result Comment: Hilary merinod Meter Performed By: #### 2 [id number] #### [facility] Laboratory [address] [place] [address] Discharge Instructionson Discharge Instructions Discharge Instructions CLIFFORDKassi DARIEL :1940 Visit Date:11/19/2024 Inpatient Discharge Instructions Your Care Team Admitting Physician - Axel Hernández DO Referring Physician - Edgar ELLIS, Axel Smalls Reason for Your Visit LEFT CARPAL TUNNEL [...] 2024 8:00 AM EDT With: Where: [address] [address]- New Follow Up Appointments after Discharge Follow Up with GORDO Weller When: 11/28/2024 01:00 PM EST Comments: Keep scheduled appointment. Call for any problems. Where: [address] [place] [id number]- [employer] (1) Medications What How Much When Instructions [...] fluticasone nasal (fluticasone Nasal 0.05 mg/ inh Tulsita) See instructions USE 1 SPRAY IN EACH [...] Allergies No Known Medication Allergies Education Materials [place], [place] [facility] CARPAL TUNNEL RELEASE INSTRUCTIONS [...] if the (more content not included)... Normal [facility] Comment on above: Result Comment: Elec tronically Signed By: Dirk KHAN, Maya Ott\.br\Date and Time Signed: 11/19/24 13:12 EST [facility] CAPILLARY GLUCOSE POCon 11-19-2024 Glucose [Mass/Vol] 78 mg/dL 55 - 99 mg/dL [facility] Comment on above: Cleaned Meter Original Ordering Provider: DO Axel Hernández [facility] Main OR PACU I Recordon Main OR PACU I Record Main OR PACU I Record PACU Phase I Document Type FT Summary Primary Physician: Axel Hernández DO Finalized Date/Time: 11/19/24 13:24:52 Pt. Name: DARIEL ZABALA D.O.B./Sex: 1940 Male Med Rec #: [id number] Physician: Axel Hernández DO Financial #: [id number] Pt. Type: A Room/Bed: Admit/Disch: 11/19/24 09:28:12 [...] Outcomes Met? Yes Last Modified By: Navdeep RN, Vicki Craig 11/19/24 13:24:37 Post-Care Text: The [...] 13:24 Vicki Sethi RN 11/19/24 13:24 Normal [facility] Main OR PACU II Recordon Main OR PACU II Record Main OR PACU II Record PACU Phase II Document Type FT Summary Primary Physician: Axel Hernández DO Finalized Date/Time: 11/19/24 14:27:02 Pt. Name: DARIEL ZABALA/Sex: 1940 Male Med Rec #: [id number] Physician: Axel Hernnádez DO Financial #: [id number] Pt. Type: A Room/Bed: [facility] Admit/Disch: 11/19/24 09:28:12 - Institution: Case Times [...] By: Maya Sotelo RN 11/19/24 14:27 Normal [facility] Main OR Preoperative Recordo n 11-19-2024 Main OR Preoperative Record Main OR Preoperative Record PreOp Document Type FT Summary Primary Physician: Axel Hernández DO Finalized Date/Time: 11/19/24 12:53:23 Pt. Name: DARIEL ZABALA/Sex: 1940 Male Med Rec #: [id number] Physician: Axel Hernández DO Financial #: [id number] Pt. Type: A Room/Bed: [facility] Admit/Disch: 11/19/24 09:28:12 - Institution: Case Times [...] Borges 11/19/24 12:53 Ambrocio Borges 11/19/24 12:53 Normal [facility] PT & PTTon 11-19-2024 aPTT Coag (PPP) [Time] 38.5 second(s) High 25.1-36.5 [facility] Comment on above: Result Comment: Para meter [...] the same coagulation reagent and instrumentation as [facility]. Currently there are no coagulation studies available worldwide for children to 14 days, and no normal ranges. Heparin therapeutic range (represented by Anti-Factor Xa activity of 0.2 - 0.4 U/mL) corresponds to PTT of 56.6 - 109.0 sec. Performed By: #### 1 [id number] #### [facility] Laboratory [address] [place] [address] INR Coag (PPP) [Relative time] 1.11 {INR} Invalid Interpretation Code [facility] Comment on above: Result Comment: INR results are specifically intended to assess patients stabilized on long-term Anticoagulation therapy suggested INR???s ???Less Intensive Anticoagulation??? 2.0 ??? 3.0 Conventional Range 3.0 ??? 4.5 Performed By: #### 1 [id number] #### [facility] [address] [place] [address] PT Coag (PPP) [Time] 12.5 second(s) Normal 9.4-12.5 [facility] Comment on above: Result Comment: 15 d [...] the same coagulation reagent and instrumentation as [facility]. Currently there are no coagulation studies available worldwide for children to 14 days, and no normal ranges. Performed By: #### 1 [id number] #### [facility] [address] [place] [address] eGFRon 11-19-2024 eGFR 85 mL/min/1.73 m2 Normal >=59 [facility] Comment on above: Performed By: #### 1 [id number] ####[facility] [address] [place] [address] BMPon 11-12-2024 Anion gap [Moles/Vol] 7 mmol/L Normal 6-16 [facility] Comment on above: Performed By: #### 2 [id number] #### [facility] Laboratory [address] [place] [address] Calcium [Mass/Vol] 8.8 mg/dL Low 8.9-11.1 [facility] Comment on above: Performed By: #### 2 [id number] #### [facility] [address] [place] [address] Chloride [Moles/Vol] 97 mmol/L Low 101-111 [facility] Comment on above: Performed By: #### 2 [id number] #### [facility] [address] [place] [address] CO2 [Moles/Vol] 28 mmol/L Normal 21-31 [facility] Comment on above: Performed By: #### 2 [id number] #### [facility] [address] [place] [address] Creatinine [Mass/Vol] 0.9 mg/dL Normal 0.5-1.3 [facility] Comment on above: Performed By: #### 2 [id number] #### [facility] Laboratory [address] [place] [address] Glucose [Mass/Vol] 106 mg/dL Normal 55-199 [facility] Comment on above: Performed By: #### 2 [id number] #### [facility] Laboratory [address] [place] [address] Potassium [Moles/Vol] 4.4 mmol/L Normal 3.5-5.3 [facility] Comment on above: Performed By: #### 2 [id number] #### [facility] [address] [place] [address] Sodium [Moles/Vol] 128 mmol/L Low 135-145 [facility] Comment on above: Performed By: #### 2 [id number] #### [facility] [address] [place] [address] Urea nitrogen [Mass/Vol] 12 mg/dL Normal 5-21 [facility] Comment on above: Performed By: #### 2 [id number] #### [facility] [address] [place] [address] Urea nitrogen/Creatinine [Mass ratio] 13 No Units Normal 10-20 [facility] Comment on above: Performed By: #### 2 [id number] #### [facility] [address] [place] [address] CHEMISTRYOrdered By: SYSTEM SYSTEM on 11-12-2024 Anion [...] (Bld) [Mass fraction] 5.4 % Normal <=5.9% [facility] ChemAutoSS QziU9opy 11-12-2024 HbA1c (Bld) [Mass fraction] 5.4 % Normal <=5.9 [facility] Comment on above: Performed By: #### 7 [id number] #### [facility] Laboratory [address] [place] [address] Inpatient Patient Summaryon 11-12-2024 Inpatient Patient Summary Inpatient Patient Summary [address] [address] [facility] Clinical Discharge Instructions PERSON INFORMATION Name: DARIEL ZABALA PHYSICIANS Admitting Physician: Axel Hernández DO Attending Physician: Axel Hernández DO PCP: Kylah Medina MD Discharge Diagnosis: Carpal tunnel syndrome on left Comment: PATIENT EDUCATION INFORMATION Instructions: Edgar Gonzalez Carpal Tunnel Release Instructions (Custom) (CUSTOM) Medication Leaflets: Follow up: With: Address: When: Axel Hernández [address] [place] [address] [employer] (1) Comments: Keep scheduled appointment Type Location [facility] 11/19/2024 2:15 PM 11/19/2024 2:45 PM Confirmed Cardiology Follow Up (FT) [facility] 12/12/2024 10:15 AM 12/12/2024 10:30 AM Confirmed Medicare Wellness Subsequent [facility] [place] 05/02/2025 8:00 AM 05/02/2025 9:00 AM Confirmed [...] 1. fluticasone nasal (fluticasone Nasal 0.05 mg/inh Tulsita) USE 1 SPRAY IN EACH NOSTRIL TWICE [...] Tablets By Mouth every day. Comment: Normal [facility] Outpatient Surgery Discharge Instructionon 11-12-2024 Outpatient Surgery Discharge Instruction Outpatient Surgery Discharge Instruction [address] [address] Patient Discharge Instructions PERSON INFORMATION [...] Follow up: With: Address: When: Axel Hernández [address] [place] [id number] [employer] (1) Comments: Keep scheduled appointment Type Location Start [facility] FT [facility] Services 11/19/2024 2:15 PM 11/19/2024 2:45 PM Confirmed Cardiology Follow Up (FT) [facility]iology Clinic 12/12/2024 10:15 AM 12/12/2024 10:30 AM Confirmed Medicare Wellness Subsequent [facility] Jackie 05/02/2025 8:00 AM 05/02/2025 9:00 AM [...] to serve you. Thank you for choosing [facility] HERE ARE THE MEDICATION CHANGES THAT OCCURRED [...] 1. fluticasone nasal (fluticasone Nasal 0.05 mg/inh Tulsita) USE 1 SPRAY IN EACH NOSTRIL TWICE [...] Mouth every day. PATIENT EDUCATION INFORMATION Instructions: [place], [place] [facility] CARPAL TUNNEL RELEASE INSTRUCTIONS Post-Operative Week One You will be in a soft dressing from mid palm to forearm. Please remove dressing two days after surgery. At that point, clean daily with peroxide or betadine and place daily fresh bandaids. Cover for showers with waterproof bandaid, op site occlusive dressing (more content not included)... Normal [facility] TSH With T4fr Reflexon 11-12 TSH Qn 2.17 m[IU]/L Normal 0.34-5.60 [facility] Comment on above: Performed By: #### 1 [id number] #### [facility] Laboratory [address] [place] [address] eGFRon 11-12-2024 eGFR 85 mL/min/1.73 m2 Normal >=59 [facility] Comment on above: Performed By: #### 1 [id number] #### [facility] Laboratory [address] [place] [address] Ambulatory Visit Summaryon 1 01-02-2024 Ambulatory Visit [...] Tab) fluticasone nasal (fluticasone Nasal 0.05 mg/inh Tulsita) gabapentin (gabapentin 300 mg Cap) glimepiride (glimepiride [...] Tuesday 9:20 AM EST With: Where: [address] [id number]- Tuesday 2:15 PM EST With: Where: [facility] Services Tuesday 10:15 AM EST With: Dixon Dubose PA-C Where: [facility] 2024 8:00 AM EDT With: Where: [address] [id number]- Medications What How Much When Instructions Unchanged [...] fluticasone nasal (fluticasone Nasal 0.05 mg/ inh Tulsita) See instructions USE 1 SPRAY IN EACH [...] choosing us for your care. Normal [facility] Family Medicine Office/Clini c Noteon 11-01-2024 Family [...] cardiovascular disease) (I25.10: Atherosclerotic heart disease of [place] coronary artery without angina pectoris) Denies CP. [...] Recent) 3074 (more content not included)... Normal [facility] Comment on above: Result Comment: Elec tronically Signed By: Adam COHN, Kylah Lopez.br\Date and Time Signed: 11/01/24 09:42 EST BMPon 10-30-2024 Anion gap [Moles/Vol] 11 mmol/L Normal 6-16 [facility] Comment on above: Performed By: #### 2 [id number] #### [facility] Laboratory [address] [place] [address] Calcium [Mass/Vol] 9.0 mg/dL Normal 8.9-11.1 [facility] Comment on above: Performed By: #### 2 [id number] #### [facility] Laboratory [address] [place] [address] Chloride [Moles/Vol] 96 mmol/L Low 101-111 [facility] Comment on above: Performed By: #### 2 [id number] #### [facility] Laboratory [address] [place] [address] CO2 [Moles/Vol] 27 mmol/L Normal 21-31 [facility] Comment on above: Performed By: #### 2 [id number] #### [facility] Laboratory [address] [place] [address] Creatinine [Mass/Vol] 0.9 mg/dL Normal 0.5-1.3 [facility] Comment on above: Performed By: #### 2 [id number] #### [facility] Laboratory [address] [place] [address] Glucose [Mass/Vol] 87 mg/dL Normal 55-199 [facility] Comment on above: Performed By: #### 2 [id number] #### [facility] Laboratory [address] [place] [address] Potassium [Moles/Vol] 4.7 mmol/L Normal 3.5-5.3 [facility] Comment on above: Performed By: #### 2 [id number] #### [facility] Laboratory [address] [place] [address] Sodium [Moles/Vol] 129 mmol/L Low 135-145 [facility] Comment on above: Performed By: #### 2 [id number] #### [facility] Laboratory [address] [place] [address] Urea nitrogen [Mass/Vol] 15 mg/dL Normal 5-21 [facility] Comment on above: Performed By: #### 2 [id number] #### [facility] Laboratory [address] [place] [address] Urea nitrogen/Creatinine [Mass ratio] 17 No Units Normal 10-20 [facility] Comment on above: Performed By: #### 2 [id number] #### [facility] Laboratory [address] [place] [address] CBC w/ Auto Diffon 4 Basophils/100 WBC (Bld) 0.9 % Normal 0.0-2.0 [facility] Comment on above: Performed By: #### 2 [id number] #### [facility] Laboratory [address] [place] [address] Basophils/Leukocytes Auto (Bld) [Pure # fraction] 0.0 E9/L Normal 0.0-0.2 [facility] Comment on above: Performed By: #### 2 [id number] #### [facility] Laboratory [address] [place] [address] Eosinophils (Bld) [#/Vol] 0.2 E9/L Normal 0.0-0.5 [facility] Comment on above: Performed By: #### 2 [id number] #### [facility] Laboratory [address] [place] [address] Eosinophils/100 WBC (Bld) 3.6 % Normal 0.0-8.0 [facility] Comment on above: Performed By: #### 2 [id number] #### [facility] Laboratory [address] [place] [address] Erythrocyte distribution width (RBC) [Ratio] 13.4 % Normal 10.9-14.2 [facility] Comment on above: Performed By: #### 2 [id number] #### [facility] Laboratory [address] [place] [address] Hematocrit (Bld) [Volume fraction] 36.3 % Low 37.7-49.0 [facility] Comment on above: Performed By: #### 2 [id number] #### [facility] Laboratory [address] [place] [address] Hemoglobin (Bld) [Mass/Vol] 12.8 g/dL Low 13.5-17.5 [facility] [facility] Comment on above: Performed By: #### 2 [id number] #### [facility] Laboratory [address] [place] [address] Lymphocytes (Bld) [#/Vol] 1.5 E9/L Normal 1.0-4.0 [facility] Comment on above: Performed By: #### 2 [id number] #### [facility] Laboratory [address] [place] [address] Lymphocytes/100 WBC (Bld) 30.1 % Normal 14.0-50.0 [facility] Comment on above: Performed By: #### 2 [id number] #### [facility] Laboratory [address] [place] [address] MCH (RBC) [Entitic mass] 31.7 pg Normal 27.0-34.0 [facility] Comment on above: Performed By: #### 2 [id number] #### [facility] [address] [place] [address] MCHC (RBC) [Mass/Vol] 35.2 g/dL Normal 31.4-36.0 [facility] Comment on above: Performed By: #### 2 [id number] #### [facility] [address] [place] [address] MCV (RBC) [Entitic vol] 90.1 fL Normal 80.0-100.0 [facility] Comment on above: Performed By: #### 2 [id number] #### [facility] [address] [place] [address] Monocytes (Bld) [#/Vol] 0.4 E9/L Normal 0.2-1.0 [facility] Comment on above: Performed By: #### 2 [id number] #### [facility] [address] [place] [address] Neutrophils (Bld) [#/Vol] 2.9 E9/L Normal 2.0-7.5 [facility] Comment on above: Performed By: #### 2 [id number] #### [facility] [address] [place] [address] Neutrophils/100 WBC (Bld) 56.9 % Normal 36.0-75.0 [facility] Comment on above: Performed By: #### 2 [id number] #### [facility] [address] [place] [address] Platelet 175.0 E9/L Normal 150.0-500.0 [facility] Comment on above: Performed By: #### 2 [id number] #### [facility] [address] [place] [address] Platelet mean volume (Bld) [Entitic vol] 9.1 fL Normal 6.4-10.8 [facility] Comment on above: Performed By: #### 2 [id number] #### [facility] [address] [place] [address] RBC (Bld) [#/Vol] 4.0 E12/L Low 4.3-5.9 [facility] Comment on above: Performed By: #### 2 [id number] #### [facility] [address] [place] [address] WBC corrected for nucl RBC Auto (Bld) [#/Vol] 5.1 E9/L Normal 4.0-11.0 [facility] Comment on above: Performed By: #### 2 [id number] #### [facility] [address] [place] [address] CHEMISTRYOrdered By: SYSTEM SYSTEM on 10-30-2024 Anion [...] 10-30-2024 eGFR 85 mL/min/1.73 m2 Normal >=59 [facility] Comment on above: Performed By: #### 1 [id number] #### [facility] [address] [place] [address] Family Medicine Office/Clini c Noteon 09-10-2024 Family [...] Daily, # 90 tab(s), Refills(s) 0, Pharmacy: [facility], 178, cm, 09/10/24 13:01:00 EDT, [...] Daily, 1 refills fluticasone Nasal 0.05 mg/inh [place], See Instructions gabapentin 300 mg Cap, 300 [...] Diabetes mellitus (more content not included)... Normal [facility] Comment on above: Result Comment: Elec tronically Signed By: Adam COHN, Kylah Cole\.br\Date and Time Signed: 09/10/24 13:19 EDT General Surgery Office/Clini c Noteon 08-28-2024 General Surgery Office/Clinic Note General Surgery Office/Clinic Note Chief Complaint ref- hernia HPI Staff [employer] Dariel is an 84 y.o. male here [...] E&M of New Patient Low 30-44 Min 86566 2. 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 Longstanding persistent atrial fibrillation (I48.11: Longstanding persistent atrial fibrillation) Should patient require or opt for a robotic repair he will need to hold his anticoagulation for 5 days prior to the procedure Ordered: E&M of New Patient Low 30-44 Min 76010 Follow-up No qualifying data available Problem List/Past [...] Oral, Daily, 1 refills Flonase 0.05 mg/inh [place], 1 spray(s), Nasal, BID gabapentin 300 mg [...] virus vaccine, inactivated 08/02/2014 Recorded Normal [facility] Comment on above: Result Comment: Elec [...] mg Tab) fluticasone nasal (Flonase 0.05 mg/inh [place]) gabapentin (gabapentin 300 mg Cap) glimepiride (glimepiride [...] With: Adam COHN, Kylah Cole Where: [address] [address]- Tuesday 1:00 PM EST With: Dixon Dubose PA-C [facility] 2024 8:00 AM EDT With: Where: [address] [address]- Medications What How Much When Why Instructions [...] Unchanged fluticasone nasal (Flonase 0.05 mg/ inh [place]) 1 Sprays Nasal Inhalation 2 times a [...] for choosing us for your care. Normal [facility] Family Medicine Office/Clini c Noteon 08-07-2024 Family [...] # 21 tab(s), Refills(s) 0, Pharmacy: [facility]/pharmacy #[id number], 178, cm, 07/31/24 14:02:00 EDT, [...] Oral, Daily, 1 refills Flonase 0.05 mg/inh [place], 1 spray(s), Nasal, BID gabapentin 300 mg [...] 1 r (more content not included)... Normal [facility] Comment on above: Result Comment: Elec tronically [...] # 21 tab(s), Refills(s) 0, Pharmacy: [facility]/pharmacy #[id number], 178, cm, 07/31/24 14:02:00 EDT, Height/Length Dosing, 78.5, kg, 07/31/24 14:02:00 EDT, Weight Dosing tramadol, 50 mg = 1 tab(s), Oral, q4hr, PRN for pain, X 7 day(s), # 21 tab(s), Refills(s) 0, Pharmacy: [facility]/pharmacy #[id number], 178, cm, 07/31/24 14:02:00 EDT, [...] Oral, Daily, 1 refills Flonase 0.05 mg/inh [place], 1 spray(s), Nasal, BID gabapentin 300 mg [...] virus vaccine, inactivated 08/02/2014 Recorded Normal [facility] Comment on above: Result Comment: Elec [...] mg Tab) fluticasone nasal (Flonase 0.05 mg/inh [place]) gabapentin (gabapentin 300 mg Cap) glimepiride (glimepiride [...] PM EDT With: Kylah Medina MD Where: [address] [address] 2023 9:15 AM EST With: Kylah Medina MD Where: [address] [address]- Tuesday 1:00 PM EST With: Dixon Dubose PA-C Where: [facility] 2024 8:00 AM EDT With: Where: [address] [address]- Medications What How Much When Instructions Unchanged [...] Unchanged fluticasone nasal (Flonase 0.05 mg/ inh [place]) 1 Sprays Nasal Inhalation 2 times a [...] choosing us for your care. Normal [facility] Family Medicine Office/Clini c Noteon 07-24-2024 Family Medicine Office/Clinic Note Family Medicine Office/Clinic Note HPI Staff Dariel is an 84 year old male presenting for ER follow up ER followup: Hospital: [place] Visit date: 07/14/24 Symptoms the patient presented with: low back pain, ED report and CT abd/pelvis in documents Current concerns: still having a lot of pain, worse he's ever had Brought empty bottle of hydrocodone-acet 5-[address] Hernnádez and methocarbamol 750mg tid prn pain rxed [...] patient was under the dosed. Patient stated Perdido was helping him more. Patient denies any [...] - Will do Tizanadine - Will do Perdido for pain - Follow up in 1 week. - Will send to pain Ordered: [facility] [place] Ambulatory Referral 2. Inguinal hernia of left side without obstruction or gangrene (K40.90: Unilateral inguinal hernia, without obstruction or gangrene, not specified as recurrent) - Pt cancelled his surgery. - NO pain at this time. - Encouraged follow up Ordered: [facility] [place] Ambulatory Referral 3. Nonsmoker (Z78.9: Other specified health status) - Please continue to not smoke Ordered: Body Mass Index (BMI) documented 3008F Current tobacco non-user 1036F Depression Screening Negative 3352F [facility] [place] Ambulatory Referral Most recent diastolic blood [...] Oral, Daily, 1 refills Flonase 0.05 mg/inh [place], 1 spray(s), Nasal, BID gabapentin 300 mg Cap, 300 mg= 1 cap(s), Oral, Daily, 1 refills glimepiride 2 mg Tab, 2 mg= 1 tab(s), Oral, Daily, 1 refills Jantoven 5 mg oral tablet, 5 mg= 1 tab(s), Oral, Daily levothyroxine 25 mcg (0.025 mg) Tab, 25 mcg= 1 tab(s), Oral, Daily, 1 refills Perdido 325 mg-5 mg oral tablet, 1 tab(s), [...] No. Househol (more content not included)... Normal [facility] Comment on above: Result Comment: Elec tronically [...] AM EST With: Kylah Medina MD Where: [address] [address]- Tuesday 1:00 PM EST With: Gracy DOTY, Dixon Schumacher Where: [facility] 2024 8:00 AM EDT With: Where: [facility] Medicine [address] [address]- Medications What How Much When Instructions Unchanged [...] choosing us for your care. [facility] Medicine Office/Clini c Noteon 07-03-2024 Family Medicine [...] 16 gram, Refill(s) 0, each nostril, [id number], 178, cm, 07/03/24 10:05:00 EDT, Height/Length Dosing, 80.8, kg, 07/03/24 10:05:00 EDT, Weight Dosing gabapentin, 300 mg = 1 cap(s), Oral, Daily, # 90 cap(s), Refills(s) 1, Pharmacy: [facility], 178, cm, 07/03/24 10:05:00 EDT, Height/Length Dosing, 80.8, kg, 07/03/24 10:05:00 EDT, Weight Dosing omeprazole, 40 mg = 1 cap(s), Oral, Daily, # 90 cap(s), Refills(s) 0, Pharmacy: [facility], 178.2, cm, 02/02/24 10:29:00 EDT, Height/Length Dosing, 84.1, kg, 02/02/24 10:29:00 EDT, Weight Dosing sildenafil, 100 mg = 1 tab(s), Oral, Daily, PRN for erectile dysfunction, 1 hour before sexual activity, # 5 tab(s), Refills(s) 0, Pharmacy: [facility], 178, cm, 07/03/24 10:05:00 EDT, Height/Length Dosing, 80.8, kg, 07/03/24 10:05:00 EDT,... 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 Normal [facility] Comment on above: Result Comment: Elec tronically [...] virus vaccine, inactivated 08/02/2014 Recorded Normal [facility] Comment on above: Result Comment: Elec tronically Signed By: Ericka COHN, Kashif D\.br\Date and Time Signed: 06/11/24 13:14 EDT Heart and Vascular Office/Cl in Noteon 05-30-2024 Heart and Vascular Office/Clinic Note [...] November and January and was hospitalized in [place] for 2 of those. He states that [...] with voice recognition artificial intelligence software, specifically [employer], [employer] and or [employer]. Substitutions may have occurred due to the inherent limitations of voice recognition and artificial intelligence software. Total time spent pr (more content not included)... Normal [facility] Comment on above: Result Comment: Elec tronically Signed By: Dixon Dubose PA-C\micky\Date and Time Signed: 05/30/24 14:29 EDT Holter [...] BY: Kashif Barnett MD ca Dictated: 05/27/2024 [id number] Transcribed: 05/28/2024 [facility] Comment on above: Result Comment: Elec tronically Signed By: Ericka COHN, Kashif rCaig\.br\Date and Time Signed: 05/29/24 13:13 EDT Coding Summary.on 05-09-2024 Coding Summary. [id number]+P GhlYWQ+VA2WHNVqZ10j yHWbsS0eM5YXPNqAWcr gQVBQTElOSyIgbmFtZT 1kaXNjZXJu IC8+DV6gUGYwZivoiWK ze7F8zXD5E62bzt7dUM xhmQQ7IDQdUwDolnodc 1bxhOt7INxqJzrgJbSb JMApeX41TQM7lN50Bv5 8uGErfGZtm7fupTs7Sk EbZWFjDJB2nMgsKCiyr 2ZmUMRsL32leXQhs0C6 IGNvbGxhcHNlOyBlbXB 3dM2dPSaagxvwq8pjfv naMrs4xm41fBOgk8Z4q GN1V5FdrwM7AVNkiQUr DdxrfXQSdK2ddecxm6p weldbBaEyFCHnZKe2DN a9GHFsgCldRaPkBJ11S KS1ZCNbkpVyQ8SxWLHe yZslEgG8m2G9Bw9CE4U PKeeuT3UAVTONKJhqfT Q+LV05ta23B8TbSqvxJ jj5LTZjOJJ4xYT9qJ7k WOEuFHsac9G2sHE7F1N glzTarz5fv7boSTHcXP srH88dwLYjd7B6AZEzh DN5RPVyxPfpTfRepK88 Oyc+KJCdkQiqg8JrFvi kb3ipn9eggJp6SupaML CmklMzhPiyFVO3o8McO v4iISYizHY0wZM9aH3f VxRxTwH0AErpK913DxM tyETuTwroB67oQ2BdhO A+NVSbAgk4WBWhzYapL M2jE7XpRLNwaqazkOUz iQueMH3vJEYmzpavECO mrS2nSXKkI2o5OsArYn U0DIiiN0FjZYGvsosfV t95gK8hKfPrIeA8IVig U0ScsyW3KCIjwZAxHMz fBMF6I67nt4A6ALQlPC ZeGFL1hXD2dK5rlWwok jogbGVmdDsgdmVydGlj XKdrTMecH419OYJsxRk nPkNvZGluZyBEYXRlOi AgMDYvMjYvMjAyNDwvd GQ+AGPbUHQ5dAwyJZFw wGQqEXeiHo6pqBmceEk bUI7aYQJvxprnGUDtvQ 1uLEMscUMpiWomAV0uF JDecaqtn384CzRoIHA0 KBAyoNJcU6SdoU8bVrT lXRSuLOQdZ7YibJIqFI rdT655DBecIyF0STOud eNoR8GaRJXfdFwyVaE7 d5S3Cw3Aa3BeeofrJ7T vmDBiIjZkZyycCAb1S1 RkPjwvdHI+IT53GAIsL Z09RKh3SRC8hAsvJMmm FQTcN7DhfK5dNhOxILZ kZGRkOyc+PHRhYmxlIH dpZHRoPScxMDAlJyBzd BreXR7fNd5bCCIfEEAi sRhxxRNdEdZks0riEPI yIVokLE0qiXhqD9KkfK H2NJAxv4v4Rs11M56zA 3JvdXA+PABvjXQ8iOH6 yH2iDfKnYrN5GZunT27 9DgXmlIChIzvtn4tkw3 vyeDs7BsA7ZNHzslTym CqxOMY7w0TuTr23Y95x IHdpZHRoPSIxNSUiIHZ pvScntf6atN6gKp8+PG ZshMZ9xNP5yE1uBtQoV eN3RFckZ638KqGymSPf Ynmec7pzg7vbeQt4CkJ oDZZknjCdyKerVBQ5v1 RbIk05C1HpqZxsc0YhN aj1pn89wSMvf1K7pCX6 L4IbHMOcvmxjxELwyTw hNI3fRWSwglffMKMthR 7dKSMqL7b5GvChVpI0O PfcP5CkzvB2VOHmzWCg HDAbjADFhG5zrwwch3c obdxiZsCfPKIvUVu8PC i9NCCxhZoeEnAjBLC8H vL2QIF8yICzxT2ncDqx sqqwuN2tIwl+SYA3vSL emPRCSI9sCtuydEJ+PH ObPKC3sGklUCivYBRma D5rCDEkH9o0YeLiTvY8 BFvtX0CxiuX4KNNocKU sVDWrbAHFmK6yozznh0 rwiasuFhIiBRDeFXb0I Kh2AVDgpSgpUgBbEID1 DmR1QLD3dMWghQ1xbIp eipdgxZ4yMca+QmlydG ttOAC4OQt6Z4BlToz7N AGheGqkBU9jaIZtCVdc Yt4qlJkrkQcaEJ4yNQR weobkb998XtDva7haPN PxqXDyFGnlFRQ8N66vc 2A9RZDsCNCgDPS4lXU2 wF5gpCnuwhhioOGwxVc gdmVydGljYWwtYWxpZ2 08YIVpgBjkIwJaGNb2E 1KqBdd6JVBqdWztSM4i jFYaUPypAw2xdYubxEh vJA3uLMSgnvygj860Rk Gpn4jxWGPmkYStRQygF UM4W66dm1R3KLFsBDYm PIH2xCX8jI4uzDzjmki gbGVmdDsgdmVydGljYW fuMKsgR719XTCftTjcD jVtwQs5A7DrQhi8TDTf qMslZX8zdYTuRUniJe0 jzRqjmJadBT2fFPRlyg qbs347WqWvi4gdNIAit QOeOBccIBN6W52se1W6 VNTvUXIsOIY2pOP9zH7 hbGlnbjogbGVmdDsgdm MvyIwbDZgqTPcwS957F HRvcDsnPlBhdGllbnQg DQafAKe8U1MpKngudNW +NI77JSVhBJ50rNRbrB Eim1ohzKf9WeCfDKKlN DZ9qChqQGlya1KbORWw K69ayTGji2O0LCKzxEa fvQCaJjGnnLY7uD9uZH nazirmh4rdchfkGvmzc 5ysgt02gX69Q44cVKaq ZHRoPSIzMCUiIHZhbGl cuz4ljS0kUy1+PGNvbC T1fWK4hT7bXVJsZqW5R SjlS901HqUkrKJwQvyk n9nva5mguXc3WuL6ZXB aybFygOpnJTO0p3MxNw 16A10tBGcvXVKdADFfF MEnKAUueExqfs4ndV9j Ii8+EVVpzHA0cGW9rS5 wRqGnSrQ3NGspT830Bm LudCZsJlxyP32wA1Pqb XA+KITsItb0WMJpeIxn XL3weGFjHBgmOc1uFMO 9QoTmAeMcHGauL1ImVS GbebikoumghHH9ENXmA PWgkG20Zk4hcIjrAMFv hJXYaG7hwgkta9vjiqh mCrYyRCSbZSl3SSb2XH IovOzaLqRoTXM7ZhI3Z ZL8nLVjwD3rjMgbxchs tM6dE5UsPPIxdhneSy7 9bC8pOlGvNfQ2PAluOd c+LyOGLbsoRm2CNIQRA R96CG02dEWyf7X5jKL2 E5WhKKUuvetofcjxrMX 0ZPUeHGJdhV67eXFaIV tePd9ld2V0d485YFHrY UHwxB53Gd7dqXyuKJYy mFCBkZ8chotsc5qrdql yItDkIEPwTIa6CYh2KD GuyMemDiBdZTH4PlN2T YX0dISvoA4voJsvocif tZ2yAog+MDYvMDkvMTk 0MjwvdGQ+ANZhFTY0yX mvBFarZMVzfD3rHGHfT 4s3VlWvVuZ9RRzzI0Rm TNOzophfVz62zH1uEwA fHfI1QRoiS7IvmzT7TY ZmeDMvFImgDJV4W58er 4L0XACpTJPaSBD9pKI0 dC1nzAimptcgsWPszUg gdmVydGljYWwtYWxpZ2 46IHRvcDsnPjgyIFllY RUvZO11HO55fRGna3F6 vUA0Q6HnMAJwadcpwzj gqGI7MNSzULQjiW82dY LaOChxXq7py1Y6p578M CHjSWXbyR55Zf6xwAre LYXgjRTUpJ8uzhlma1q nbctxYcWeZQNeKXl3ZP p9BHLuxXlzNyUzUNY5R tY2WER3oOUoaA6toSzd yokckJ5xAsq+TWFsZTw vdGQ+RIFoLSG4qIpvLI sqFWOqyY3cGYTiJ9n6J lGdEhO9QVvzG0EwLWBx umigVi55qJ7oMcObHhB 0QWhkP6AomkZ4VKPocH UdVGoeJZF1S41rj0I9X YFgGGKpLWU8eUY9hT2g bGlnbjogbGVmdDsgdmV fvLtwNDozDEwkL812VJ GrrJxxCo48fOXkuGjmu xB5E6YwGxfarYP+PC90 PIEeVX84cQKxhKRpc1v skZt4RlKiQCLsJNY2jI vmWCgvu6CkINIyC39vw KEvu8M9RWOwyZasgPVl BoTnwRR3qB9xWVaiwpu fb3krlwgwWlmhq6kpsy 26hC29F00uIQjzMRYsD WZgGRGzLBPmhAlvxs6o aS3pYg8+UUIxnSX5gVR 8dM3zCmUmLrG8HMuuM1 73UqJgeRJfUmvhr3wdt 0mnuYi5RwWzKPEpkmYy fHkiYWT2g1IzEb79F30 sIHdpZHRoPSIyMCUiIH GhfDyvak7akS9yHg5+P F2yq5lvaq05uQ13rDU+ GYVyFNM2vNckXTdlNGI cbK9aRTpeMkT6QPQtQx TfxV68gXDzCKxnSb7bq StefNkxOT1lDINkewod j633WiEyb5dnHYHgdSB lYGsaAHH1I50yo9X2RP MgJYBzEZT2mLH6eM0hv GlnbjogbGVmdDsgdmVy zGkvBFgcTQhfG832ITR afNoaDgXusBDyJ3dxur GZAB8yAtzefGT+PHRkI CG6qZhlUOcnJAJxcB6h BBCkT8o9CwAiBhQ4MXd xI3UhkjH4KIGrtCAtWD FgaBKBgV4beglws7xlx bsrKxIbWBFrHVc7PTo2 WYTokSdbQnAyTMO2ClO 9KDT1hEMvcO4ygNmkrr cxoB7bUee+RklOOjwvd GQ+GJTqHTP9kZgfJIwb LACgyJ6uPIIdR9b3JpI kCxL5AEzkL7GfaqU0MO GmeBTtJLBypSIRqC0nz ltyd4rpbebyLgUmNRDa LLk5GLx7TGLtdNreFuW sEZS7HdW5TYS1uJVqjZ 8ylLvewoyggW9hQhm+T VJOOjwvdGQ+PHRkIHN0 cDlbBItuZVJfgA6fQYX iY7i9YzPfVkO0QYdaJ8 WiefL6PARvxLZoETRox GWLgF8cetfgd4cpdebg PcNrVAEdRNs7NZv2BJV jyRxaEeMsZOL5WcB5PC T3bJAnhD9hcFokptozg G9wOyc+JYZ3ZME1AV21 CB65Z7MxSaaorJLqrAE +PHRhYmxlIHdpZHRoPS pgAMDsGfHrhTbiGB4zT j8cXJXfNILvpXhnfETi BwPnx9emAEFbQ (more content not included)... Normal [facility] Consultation Noteon 06-24-20 24 Consultation Note [id number] D#[id number] [facility] Ambulatory Visit Summaryon 0 05-03-2024 Ambulatory [...] With: Kashif Barnett MD Where: [facility] [place] 2023 9:15 AM EST With: Kylah Medina MD Where: [facility] [place] Normal [address] [place] [address]- \.br\ Medications\.br\ What How Much When Instructions\.br\ [...] to adjust your dosage.\.br\ ? \.br\ Take fczg-zmh-srobsdo and prescription medicines only as told by [...] MD. Primary Care Physician - Kylah Medina MD [...] Ericka COHN, Kashif Craig Where: [facility] [place] 2023 9:15 AM EST With: Adam COHN, Kylah Cole Where: [facility] [place] Normal [address] [place], [place] [id number]- \.br\ Medications\.br\ What How Much When Instructions\.br\ [...] of cylinders, a pump, and a reservoir. [facility] Medicine Office/Clini c Noteon 05-03-2024 Family Medicine [...] for MERS/COVID-19 : N/A Renetta Abdullahi LPN 05/03/2024 8:01 EDT Medicare/Medicaid Summary Chief Complaint [...] he has just been busy, Bradly DELA CRUZ Renetta L - 05/03/2024 8:01 EDT Advance Directive FT Advance Directive : No Patient Wishes to Receive Further Information on Advance Directives : No Organ Donation Consent : No Bradly DELA CRUZ Renetta Nickerson - 05/03/2024 8:01 EDT Procedures / Surgeries FT - Procedure History (As Of: 05/03/2024 09:05:32 EDT) Anesthesia Minutes: 0 ; Procedure Name: Surgery, neck X 2 ; Procedure Minutes: 0 ; Last Reviewed Dt/Tm: 05/03/2024 08:24:28 EDT Procedure Dt/Tm: 03/26/2024 ; Location: [facility] ; Anesthesia Minutes: 0 ; [...] Renetta Abdullahi LPN - 05/03/2024 8:01 EDT [facility] Risks Grid Sexual problems : Never [...] Depression Screening (more content not included)... Normal [facility] Comment on above: Result Comment: Elec tronically [...] is seeing cardiology and did not tell housekeeping coordinator or myself that he had been taking [...] Daily, # 90 tab(s), Refills(s) 0, Pharmacy: [facility], 178.2, cm, 02/02/24 10:29:00 EDT, Height/Length Dosing, 84.1, kg, 02/02/24 10:29:00 EDT, Weight Dosing sodium chloride, See Instructions, TAKE 1 TABLET BY MOUTH TWICE DAY, # 90 tab(s), Refills(s) 2, Pharmacy: [facility]/pharmacy #[id number], 180.5, cm, 03/20/24 15:05:00 EDT, [...] Abuse, 03/06 (more content not included)... Normal [facility] Comment on above: Result Comment: Elec tronically [...] night-lights. ? Place frequently used items in alyq-xw-qzmci places. Lower the shelves around your home [...] the way. ? Do not use floor romanian or wax that makes floors slippery. If [...] include working with a physical therapist or associate trainer to improve your strength, balance, and endurance. Where to find more information ? Centers for Disease Control and Prevention, STE[place]: www.cdc.gov ? National [place] on Aging: www.kieran.nih.gov Contact a health care [...] health ca (more content not included)... Normal [facility] Patient Education Urology Erectile Dysfunction Erectile dysfunction [...] these instructions at home: Medicines ? Take opql-wwb-ravitbd and prescription medicines only as told by [...] include cig (more content not included)... Normal [facility] Screenson 05-03-2024 Screens [id number] 2#1.00TIFF Normal [facility] CBC w/ Auto Diffon 4 Basophils/100 WBC (Bld) 0.9 % Normal 0.0-2.0 [facility] Comment on above: Performed By: #### 2 [id number] #### [facility] Laboratory [address] [place] [address] Basophils/Leukocytes Auto (Bld) [Pure # fraction] 0.0 E9/L Normal 0.0-0.2 [facility] Comment on above: Performed By: #### 2 [id number] #### [facility] [address] [place] [id number] Eosinophils (Bld) [#/Vol] 0.1 E9/L Normal 0.0-0.5 [facility] Comment on above: Performed By: #### 2 [id number] #### [facility] [address] [place] [address] Eosinophils/100 WBC (Bld) 2.4 % Normal 0.0-8.0 [facility] Comment on above: Performed By: #### 2 [id number] #### [facility] [address] [place] [address] Erythrocyte distribution width (RBC) [Ratio] 14.4 % High 10.9-14.2 [facility] Comment on above: Performed By: #### 2 [id number] #### [facility] [address] [place] [address] Hematocrit (Bld) [Volume fraction] 42.2 % Normal 37.7-49.0 [facility] Comment on above: Performed By: #### 2 [id number] #### [facility] [address] [place] [address] Hemoglobin (Bld) [Mass/Vol] 14.0 g/dL Normal 13.5-17.5 [facility] Comment on above: Performed By: #### 2 [id number] #### [facility] [address] [place] [address] Lymphocytes (Bld) [#/Vol] 1.4 E9/L Normal 1.0-4.0 [facility] Comment on above: Performed By: #### 2 [id number] #### [facility] [address] [place] [address] Lymphocytes/100 WBC (Bld) 34.0 % Normal 14.0-50.0 [facility] Comment on above: Performed By: #### 2 [id number] #### [facility] [address] [place] [address] MCH (RBC) [Entitic mass] 30.8 pg Normal 27.0-34.0 [facility] Comment on above: Performed By: #### 2 [id number] #### [facility] [address] [place] [address] MCHC (RBC) [Mass/Vol] 33.1 g/dL Normal 31.4-36.0 [facility] Comment on above: Performed By: #### 2 [id number] #### [facility] [address] [place] [address] MCV (RBC) [Entitic vol] 92.9 fL Normal 80.0-100.0 [facility] Comment on above: Performed By: #### 2 [id number] #### [facility] Laboratory [address] [place] [address] Monocytes (Bld) [#/Vol] 0.4 E9/L Normal 0.2-1.0 [facility] Comment on above: Performed By: #### 2 [id number] #### [facility] Laboratory [address] [place] [address] Neutrophils (Bld) [#/Vol] 2.2 E9/L Normal 2.0-7.5 [facility] Comment on above: Performed By: #### 2 190722 #### [facility] Laboratory [address] [place] [address] Neutrophils/100 WBC (Bld) 53.4 % Normal 36.0-75.0 [facility] Comment on above: Performed By: #### 2 446014 #### [facility] Laboratory [address] [place] [address] Platelet 166.0 E9/L Normal 150.0-500.0 [facility] Comment on above: Performed By: #### 2 396901 #### [facility] Laboratory [address] [place] [address] Platelet mean volume (Bld) [Entitic vol] 9.8 fL Normal 6.4-10.8 [facility] Comment on above: Performed By: #### 2 486442 #### [facility] Laboratory [address] [place] [address] RBC (Bld) [#/Vol] 4.5 E12/L Normal 4.3-5.9 [facility] Comment on above: Performed By: #### 2 939325 #### [facility] Laboratory [address] [place] [address] WBC corrected for nucl RBC Auto (Bld) [#/Vol] 4.2 E9/L Normal 4.0-11.0 [facility] Comment on above: Performed By: #### 2 182969 #### [facility] Laboratory [address] [place] [address] CHEMISTRYOrdered By: SYSTEM SYSTEM on 05-01-2024 Albumin [...] used for this result was chemiluminescence using [employer]s Access Hybritech PSA reagent. Protein [Mass/Vol] 7.1 [...] 05-01-2024 Albumin [Mass/Vol] 4.2 g/dL Normal 3.3-5.0 [facility] Comment on above: Performed By: #### 2 268481 #### [facility] Laboratory [address] [place] [address] Albumin/Globulin (S) [Mass conc ratio] 1.4 Normal 1.1-2.2 [facility] Comment on above: Performed By: #### 2 779771 #### [facility] Laboratory [address] [place] [address] ALP [Catalytic activity/Vol] 83 Int._Unit/L Normal 21-98 [facility] Comment on above: Performed By: #### 2 276900 #### [facility] Laboratory [address] [place] [address] ALT No additional P-5'-P [Catalytic activity/Vol] 14 Int._Unit/L Normal 6-46 [facility] Comment on above: Performed By: #### 2 415065 #### [facility] Laboratory [address] [place] [address] Anion gap [Moles/Vol] 10 mmol/L Normal 6-16 [facility] Comment on above: Performed By: #### 2 215239 #### [facility] Laboratory [address] [place] [address] AST [Catalytic activity/Vol] 22 Int._Unit/L Normal 5-43 [facility] Comment on above: Performed By: #### 2 872636 #### [facility] Laboratory [address] [place] [address] Bilirubin [Mass/Vol] 0.9 mg/dL Normal 0.0-1.1 [facility] Comment on above: Performed By: #### 2 632436 #### [facility] Laboratory [address] [place] [address] Calcium [Mass/Vol] 9.5 mg/dL Normal 8.9-11.1 [facility] Comment on above: Performed By: #### 2 331695 #### [facility] Laboratory [address] [place] [address] Chloride [Moles/Vol] 103 mmol/L Normal 101-111 [facility] Comment on above: Performed By: #### 2 054279 #### [facility] Laboratory [address] [place] [address] CO2 [Moles/Vol] 29 mmol/L Normal 21-31 [facility] Comment on above: Performed By: #### 2 799663 #### [facility] Laboratory [address] [place] [address] Creatinine [Mass/Vol] 1.1 mg/dL Normal 0.5-1.3 [facility] Comment on above: Performed By: #### 2 912977 #### [facility] Laboratory [address] [place] [address] Globulin (S) [Mass/Vol] 2.9 g/dL Normal 1.4-4.0 [facility] Comment on above: Performed By: #### 2 424123 #### [facility] Laboratory [address] [place] [address] Glucose [Mass/Vol] 104 mg/dL Normal 55-199 [facility] Comment on above: Performed By: #### 2 495639 #### [facility] Laboratory [address] [place] [address] Potassium [Moles/Vol] 5.2 mmol/L Normal 3.5-5.3 [facility] Comment on above: Performed By: #### 2 096615 #### [facility] Laboratory [address] [place] [address] Protein [Mass/Vol] 7.1 g/dL Normal 6.0-7.8 [facility] Comment on above: Performed By: #### 2 438881 #### [facility] Laboratory [address] [place] [address] Sodium [Moles/Vol] 137 mmol/L Normal 135-145 [facility] Comment on above: Performed By: #### 2 359132 #### [facility] Laboratory [address] [place] [address] Urea nitrogen [Mass/Vol] 15 mg/dL Normal 5-21 [facility] Comment on above: Performed By: #### 2 430041 #### [facility] Laboratory [address] [place] [address] Urea nitrogen/Creatinine [Mass ratio] 14 No Units Normal 10-20 [facility] Comment on above: Performed By: #### 2 770531 #### [facility] Laboratory [address] [place] [address] Consent for Treatmenton 04-14 Consent for Treatment [id number] 72#1.00TIFF Normal [facility] HEMATOLOGYOrdered By: SYSTEM SYSTEM on 05-01-2024 Basophils/100 [...] Remisol Heme Lab Reportson 05-01-2024 Lab Reports [id number] E#1.00TIFF Normal [facility] Lipid Panelon 05-01-2024 Cholesterol [Mass/Vol] 168 mg/dL Normal 120-200 [facility] Comment on above: Performed By: #### 2 773968 #### [facility] Laboratory [address] [place] [address] Cholesterol in HDL [Mass/Vol] 54 mg/dL Invalid Interpretation Code [facility] Comment on above: Result Comment: '>= 60 LOW RISK' '<= 40 HIGH RISK' Performed By: #### 2 334398 #### [facility] Laboratory [address] [place] [address] Cholesterol in LDL [Mass/Vol] 99 mg/dL Normal <=129 [facility] Comment on above: Performed By: #### 2 005933 #### [facility] Laboratory [address] [place] [address] Cholesterol in VLDL [Mass/Vol] 16 mg/dL Normal 7-40 [facility] Comment on above: Performed By: #### 2 346115 #### [facility] Laboratory [address] [place] [address] Triglyceride [Mass/Vol] 78 mg/dL Normal <=149 [facility] Comment on above: Performed By: #### 2 558053 #### [facility] Laboratory [address] [place] [address] Nurse Consultation Noteon Nurse Consultation Note Reason [...] influenza virus vaccine, inactivated 08/02/2014 Recorded Normal [facility] PSA Screen, Totalon 05-01-20 24 Prostate specific Ag [Mass/Vol] 1.3 ng/mL Normal 0.1-3.5 [facility] Comment on above: Result Comment: The concentration of PSA determined by different manufacturers can vary due to differences in assay methods and reagent specificity. Values obtained from different assay methods cannot be used interchangeably. The methodology used for this result was chemiluminescence using [employer]s Access Hybritech PSA reagent. Performed By: #### 1 [id number] #### [facility] Laboratory [address] [place] [address] Physician Orderon 04-23-2024 Physician Order [id number] 859#1.00TIFF Normal [facility] Consent for Treatmenton Consent for Treatment [id number] #1.00TIFF Normal [facility] Heart and Vascular Office/Cl inic Noteon 04-20-2024 [...] or orthopnea. 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 with housekeeping coordinator, location unknown, however, has not been followed [...] influenza virus vaccine, inactivated 08/02/2014 Recorded Normal [facility] Comment on above: Result Comment: Elec tronically Signed By: Ericka COHN, Kashif Craig\.br\Date and Time Signed: 04/20/24 13:49 EDT Insurance Correspondenceon 0 04-20-2024 Insurance Correspondence [id number] 559#1.00TIFF Normal [facility] Consultation Noteon 04-10-20 Consultation Note [id number] 1#1.00TIFF Normal [facility] Postoperative Documentson Postoperative Documents [id number] 811#1.00TIFF Normal [facility] Consultation Noteon 03-29-20 Consultation Note [id number] B4#1.00TIFF Normal [facility] Lab Reportson 03-29-2024 Lab Reports [id number] DF#1.00TIFF Normal [facility] RAD - MISCon 03-29-2024 RAD - MISC [id number] 19#1.00TIFF Normal [facility] IntraOperative Documentson 0 03-28-2024 IntraOperative Documents [id number] 516#1.00TIFF [facility] Consent for Anesthesiaon Consent for Anesthesia [id number] 28#1.00TIFF [facility] Discharge Instructionson Discharge Instructions [id number] 47#1.00TIFF [facility] IntraOperative Documentson 0 03-27-2024 IntraOperative Documents [id number] 36#1.00TIFF [facility] Main OR Intraoperative Recor don 03-27-2024 Main OR Intraoperative Record IntraOp Document Type FT Summary Primary Physician: Axel Hernández DO Finalized Date/Time: 03/27/24 09:11:12 Pt. Name: DARIEL ZABALA/Sex: 1940 Male Med Rec #: [id number] Physician: Axel Hernández DO Financial #: [id number] Pt. Type: A Room/Bed: [facility]/01 Admit/Disch: 03/26/24 09:11:44 - 03/26/24 14:30:00 Institution: [...] Entry 3 Case Attendee Lynne SCHAFER, Davie Hernnádez DO, Ambrocio Peguero Role Performed Anesthesiologist Surgeon - Primary Exhaust Machine Operator - Primary Glass Smoother Time In 03/26/24 12:20:00 03/26/24 12:20:00 03/26/24 [...] Marium Peña RN, Rich Nickerson Role Performed FURNITURE UPHOLSTERER/SA Scrub - Primary Staff - Other Time [...] (If Applicable) PreOp Antibiotic Yes Time Out Lynne SCHAFER, Davie Xavier, Given Participants Axel Hernández DO, Sweene, Terry [...] and tissue Entry 1 Skin Integrity Intact, [place], Warm, and Skin Abnormality No Dry Outcomes Met? Yes Last Modified By: Jony Ambrocio Serina 03/26/24 12:36:42 Post-Care Text: The patient is free from signs and symptoms of injury caused by extraneous objects Patient Positioning FT Pre-Care Text: Identifies physical alterations that require additional precautions for procedure-specific positioning, verifies presence of prosthetics or correctiv (more content not included)... Normal [facility] Operative Reporton Operative Report SURGERY DATE: 03/26/2024 [employer]UCTION PLANT SUPERVISOR: Chica Jolley C.F.A. PREOPERATIVE DIAGNOSIS: Right little [...] patient's condition satisfactory Deanna Weller Dictated: 03/26/2024 [id number] Transcribed: 03/26/2024 cc:Kylah Medina M.D. [facility] Comment on above: Result Comment: Elec tronically Signed By: Axel Hernández DO\.br\Date and Time Signed: 03/27/24 07:40 EDT Preoperative Documentson Preoperative Documents [id number] 14#1.00TIFF [facility] Progress Note-Physicianon Progress Note-Physician Patient: DARIEL [...] 2 causing vascular disease / SNOMED CT 479254901 / Confirmed Trigger finger / SNOMED CT 398585204 / Confirmed Syncope / SNOMED CT 923700466 / Confirmed Body mass index (BMI) of 25.0-25.9 in adult / SNOMED CT 7808263963 / Confirmed Osteoarthritis / SNOMED CT 5968884951 / Confirmed Encounter for surveillance of abnormal nevi / SNOMED CT 9004555135 / Confirmed Laceration of head / SNOMED CT 9446446756 / Confirmed Hyponatremia / SNOMED CT 230051779 / Confirmed Hyperlipidemia / SNOMED CT 83437521 / Confirmed Fall at home / SNOMED CT 81714351 / Confirmed ED (erectile dysfunction) / SNOMED CT 2226316350 / Confirmed Carpal tunnel syndrome, left / SNOMED CT 90426085 / Confirmed Afib / SNOMED CT 86311576 / Confirmed ASCVD (arteriosclerotic cardiovascular disease) / SNOMED CT 532443811 / Confirmed Histories Procedure history: Surgery, neck X 2 ([id number]). Carpal tunnel release (120130592). Social History Social & Psychosocial Habits Alcohol [...] adequate air exchange. Cardiovascular: Regular rhythm. Plan [place] [employer]hesi[employer] (ASA) physical status classification: Class III. Anesthetic Preoperative Plan: Anesthesia General. Normal [facility] Comment on above: Result Comment: Elec tronically [...] meets criteria ( To home ). Normal [facility] Comment on above: Result Comment: Elec tronically Signed By: Chau Cardona Jr, DO.br\Date and Time Signed: 03/27/24 12:32 EDT CHEMISTRYOrdered By: Sara ROP User on 03-26-2024 Glucose [Mass/Vol] 92 mg/dL Normal 55 - 99 mg/dL [facility] C POC Subsection Comment on above: Result Comment: Justine garcia RN/ POC Device SN [id number] 1 Invalid Interpretation Code [facility] POC Subsection POC User ID [id number] 1 Invalid Interpretation Code [facility] POC Subsection POC Username LORNA WILSON Invalid Interpretation Code [facility] POC Subsection COAGULATIONOrdered By: Toshia Tadeo on 03-26-2024 aPTT Coag (PPP) [Time] 35.8 s Normal 25.1 - 36.5 second(s) [facility] Auto Coag Comment on above: Interpretive Data: [...] the same coagulation reagent and instrumentation as [facility]. Currently there are no coagulation studies available worldwide for children to 14 days, and no normal ranges. Heparin therapeutic range (represented by Anti-Factor Xa activity of 0.2 - 0.4 U/mL) corresponds to PTT of 56.6 - 109.0 sec. PT Coag (PPP) [Time] 13.4 s High 9.4 - 1 2.5 second(s) [facility] Auto Coag Comment on above: Interpretive Data: [...] the same coagulation reagent and instrumentation as [facility]. Currently there are no coagulation studies available worldwide for children to 14 days, and no normal ranges. Capillary Glucose POCon 03-14 Glucose [Mass/Vol] 92 mg/dL Normal 55-99 [facility] Comment on above: Result Comment: Justine garcia RN/ Performed By: #### 2 [id number] #### [facility] Laboratory [address] [place] [address] Consent for Procedure/Surger yon 03-26-2024 Consent for Procedure/Surgery [id number] 421#1.00TIFF Normal [facility] Consent for Treatmenton 03-14 Consent for Treatment [id number] E9#1.00TIFF Normal [facility] Discharge Instructionson Discharge Instructions DARIEL ZABALA :1940 Visit Date:03/26/2024 Inpatient Discharge Instructions Your Care Team Admitting Physician - Axel Hernández DO Referring Physician - Axel Hernández DO Reason for Your Visit RIGHT 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 Duration 7 days. Pickup at [id number] Unchanged atenolol (atenolol 25 mg Tab) 1 [...] Tablets By Mouth Every day Pharmacy Information [id number]: [address] [place], [place] [id number] [phone] Problems Ongoing - Any problem that you [...] and med (more content not included)... Normal [facility] Comment on above: Result Comment: Elec tronically Signed By: Sloan KHAN, Rudy Pereira\.br\Date and Time Signed: 03/26/24 14:03 EDT H&P Updateon 03-26-2024 H&P Update [id number] 633#1.00TIFF Normal [facility] Main OR PACU I Recordon 03-14 Main OR PACU I Record PACU Phase I Document Type FT Summary Primary Physician: Axel Hernández DO Finalized Date/Time: 03/26/24 13:38:42 Pt. Name: DARIEL ZABALA/Sex: 1940 Male Med Rec #: [id number] Physician: Axel Hernández DO Financial #: [id number] Pt. Type: A Room/Bed: Admit/Disch: 03/26/24 09:11:44 [...] By: Vicki Sethi RN 03/26/24 13:38 Normal [facility] Main OR PACU II Recordon Main OR PACU II Record PACU Phase II Document Type FT Summary Primary Physician: Axel Hernández DO Finalized Date/Time: 03/26/24 16:11:30 Pt. Name: DARIEL ZABALA /Sex: 1940 Male Med Rec #: [id number] Physician: Axel Hernández DO Financial #: [id number] Pt. Type: A Room/Bed: Admit/Disch: 03/26/24 09:11:44 [...] II Outcomes Met? Yes Last Modified By: Sloan KHAN, Rudy Pereira 03/26/24 16:11:14 Post-Care Text: The patient demonstrates [...] By: Rudy Lisa RN 03/26/24 16:11 Normal [facility] Main OR Preoperative Recordo n 03-26-2024 Main OR Preoperative Record PreOp Document Type FT Summary Primary Physician: Axel Hernández DO Finalized Date/Time: 03/26/24 13:07:41 Pt. Name: DARIEL ZABALA/Sex: 1940 Male Med Rec #: [id number] Physician: Axel Hernández DO Financial #: [id number] Pt. Type: A Room/Bed: [place] [address] Admit/Disch: 03/26/24 09:11:44 - Institution: Case Times [...] 03/26/24 13:05 Ambrocio Borges 03/26/24 13:07 Normal [facility] Monitor Recordon 03-26-2024 Monitor Record [id number] 220#1.00TIFF Normal [facility] Monitor Record [id number] 270#1.00TIFF [facility] PT & PTTon 03-26-2024 aPTT Coag (PPP) [Time] 35.8 second(s) Normal 25.1-36.5 [facility] Comment on above: Result Comment: Para meter 15 days - 4 weeks 1 - 5 months 6 - 11 months 1 - 5 years 6 - 10 years 11 - 17 years PTT Mean: 35.4 (27.6-45.6) Mean: 33.5 (24.8-40.7) Mean: 32.4 (25.1-40.7) Mean: 31.6 (24.0-39.2) Mean: 31.6 (26.9-38.7) Mean: 31.0 (24.6-38.4) Pediatric Reference ranges were obtained from a study by talita Burk. prepared from 1437 samples obtained at 7 different centers using the same coagulation reagent and instrumentation as [facility]. Currently there are no coagulation studies available worldwide for children to 14 days, and no normal ranges. Heparin therapeutic range (represented by Anti-Factor Xa activity of 0.2 - 0.4 U/mL) corresponds to PTT of 56.6 - 109.0 sec. Performed By: #### 1 [id number] ####[facility] [address] [place] [address] PT Coag (PPP) [Time] 13.4 second(s) High 9.4-12.5 [facility] Comment on above: Result Comment: 15 d [...] ranges were obtained from a study by talita Burk. prepared from 1437 samples obtained at 7 different centers using the same coagulation reagent and instrumentation as [facility]. Currently there are no coagulation studies available worldwide for children to 14 days, and no normal ranges. Performed By: #### 1 [id number] ####[facility] [address] [place] [address] PT & PTTOrdered By: Starr lnida on 03-26-2024 INR Coag (PPP) [Relative time] 1.19 {INR} Invalid Interpretation Code [facility] Auto Coag Comment on above: Interpretive Data: [...] 3.0 ? 4.5 Performed By: #### 1 [id number] ####[facility] [address] [place] [address] Patient Education - Texton 0 03-26-2024 Patient [...] ? Doing activities that require a strong financial adviser. ? Having rheumatoid arthritis, gout, or diabetes. [...] on your hand. General instructions ? Take odtl-cpt-tkqzbir and prescription medicines only as told by [...] care provide (more content not included)... Normal [facility] Ambulatory Visit Summaryon 0 03-20-2024 Ambulatory Visit [...] Appointments Tuesday 12:30 PM EDT With: Where: [facility] Tuesday 9:00 AM EDT With: Where: [facility] Invalid Interpretation Code [address] [place] [address]- \.br\ 2023 9:00 AM EDT \.br\ With: Adam COHN, Kylah Cole\.br\ Where: [facility] Consent for Procedure/Surger yon 03-20-2024 Consent for Procedure/Surgery [id number] 969#1.00TIFF Normal [facility] Family Medicine Office/Clini c Noteon 03-20-2024 Family Medicine Office/Clinic Note HPI Staff Dariel is an 83 year old male presenting for ER follow up needs his andre removed ER followup: [facility]: [facility] Visit date: 03/10/24 Symptoms the patient presented [...] - Hold coumadin tomorow for surgery Ordered: [facility] Internal Ambulatory Referral 2. Fall at home (W19.XXXA: Unspecified fall, initial encounter) - 2/2 syncope - Nausea before syncope - Will refer to Cardio for evaluation of continues syncope Ordered: [facility] Internal Ambulatory Referral 3. Laceration of head (S01.91XA: Laceration without foreign body of unspecified part of head, initial encounter) - Stables removed - no issues. Ordered: [facility] Internal Ambulatory Referral 4. Syncope (R55: Syncope and collapse) - Will send to Cardio for further work up Ordered: [facility] Internal Ambulatory Referral 5. Hyponatremia (E87.1: Hypo-osmolality and hyponatremia) - Recheck BMP today - Follow up with Nephrology Ordered: [facility] Internal Ambulatory Referral 6. Over weight (E66.3: [...] influenza virus vaccine, inactivated 08/02/2014 Recorded Normal [facility] Comment on above: Result Comment: Elec tronically Signed By: Kylah Medina MD\.br\Date and Time Signed: 03/20/24 15:31 EDT Inpatient Patient Summaryon 03-20-2024 Inpatient Patient Summary [place] [id number] [facility] Clinical Discharge Instructions PERSON INFORMATION Name: DARIEL ZABALA PHYSICIANS Admitting Physician: Axel Hernández DO Attending Physician: Axel Hernández DO PCP: Kylah Medina MD Discharge Diagnosis: Trigger finger, right little finger Comment: PATIENT EDUCATION INFORMATION Instructions: Trigger Finger Medication Leaflets: Follow up: With: Address: When: Axel Hernández [address] [place], [place] [id number] [employer] (1) Comments: Keep scheduled appointment Type Location Start [facility] 03/26/2024 12:30 PM 03/26/2024 12:45 PM Confirmed Lab Draw [facility] 05/01/2024 9:00 AM 05/01/2024 9:20 AM Confirmed FM Medicare Wellness Subsequent [facility] 05/03/2024 8:00 AM 05/03/2024 9:00 AM Confirmed FM Open [facility] 05/03/2024 9:00 AM 05/03/2024 9:15 [...] mg oral capsule) ubiquinone (CoQ10) Comment: Normal [facility] Outpatient Surgery Discharge Instructionon 03-20-2024 Outpatient Surgery Discharge Instruction [place] [id number] Patient Discharge Instructions PERSON INFORMATION Name: DARIEL [...] Follow up: With: Address: When: Axel Hernández [address] [place] [id number] Business (1) Comments: Keep scheduled appointment Type Location Start [facility] 03/26/2024 12:30 PM 03/26/2024 12:45 PM Confirmed FM Lab Draw [facility] 05/01/2024 9:00 AM 05/01/2024 9:20 AM Confirmed FM Medicare Wellness Subsequent [facility] 05/03/2024 8:00 AM 05/03/2024 9:00 AM Confirmed FM Open [facility] 05/03/2024 9:00 AM 05/03/2024 9:15 [...] to serve you. Thank you for choosing [facility] HERE ARE THE MEDICATION CHANGES THAT OCCURRED [...] finger ca (more content not included)... Normal [facility] ECG 12-Leadon 03-12-2024 ECG 12-Lead [id number] EC#1.00TIFF Normal [facility] ED Note-Physicianon 03-12-20 ED Note-Physician [id number] A7#1.00TIFF Normal [facility] RAD - CT Reporton 03-12-2024 RAD - CT Report [id number] 20#1.00TIFF Normal [facility] RAD - CT Report [id number] A4#1.00TIFF Normal [facility] RAD - MISCon 03-12-2024 RAD - MISC [id number] 55#1.00TIFF Normal [facility] Ambulatory Visit Summaryon 0 03-08-2024 Ambulatory Visit [...] Appointments Tuesday 1:45 PM EDT With: Where: [facility] Tuesday 9:00 AM EDT With: Where: [facility] Invalid Interpretation Code [address] [place] [address]- \.br\ 2023 9:00 AM EDT \.br\ With: Kylah Medina MD\.br\ Where: [facility] Office/Clini c Noteon 03-08-2024 Family Medicine Office/Clinic Note HPI Staff Dariel is an 83 year old male presenting for surgical clearance Needs clearance and hold coumadin in writing and faxed to Dr Hernández at [phone] Note: he would really benefit for chronic care management if he qualifies ( he walks in here at least once a week with questions Date of surgery: March 26, 2024 Surgeon: Dr Hernández Hospital: [facility] Type of Surgery: rt little finger trigger [...] disorder) - Will send to Derm. Ordered: [facility] External Ambulatory Referral Follow-up No qualifying data [...] virus vaccine, inactivated 08/02/2014 Recorded Normal [facility] Comment on above: Result Comment: Elec [...] numbers. This can be done either in [place] ([place] or metric measurements. Note that charts and online BMI calculators are available to help you find your BMI quickly and easily without having to do these calculations yourself. To calculate your BMI in [place] ([place] measurements: 1. Measure your weight in [...] for Disease Control and Prevention: www.cdc.gov ? [place] Heart Association: www.heart.org ? National Heart, Lung, and Blood Aiken: www.nhlbi.nih.gov Summary ? Body mass index (BMI) is a number that is calculated from a person's weight and height. ? BMI may help estimate how much of a person's weight is composed of fat. BMI can help identify those who may be at higher risk for certain medical problems. ? BMI can be measured using Palestinian measurements or metric measurements. ? BMI charts are used to identify whether you are underweight, normal weight, overweight, or obese. This information is not intended to replace advice given to you by your health care provider. Make sure you discuss any questions you have with your health care provider. Document Revised: 07/23/2020 Document Reviewed: 05/30/2020 [employer] Patient Education ? 2022 [employer]. Normal [facility] Physician Referralon 024 Physician Referral [id number] 859#1.00TIFF Normal [facility] XR Chest 2 Viewson 4 XR Chest [...] FINAL REPORT Dictated: 03/07/2024 7:26 am Vinicius Mdeina M.D. Signed (Electronic Signature): 03/07/2024 7:26 am Signed by: Vinicius Medina M.D. Transcribed by: FRANCESCO Technologist: CHRISTIE Technical Comments Radiation Dose: Ka,r in mGy = na DAP = na Normal [facility] BMPon 03-06-2024 Anion gap [Moles/Vol] 10 mmol/L Normal 6-16 [facility] Comment on above: Performed By: #### 1 [id number], 6432209, 4959225 ####[facility] [address] [place] [address] Calcium [Mass/Vol] 9.1 mg/dL Normal 8.9-11.1 [facility] Comment on above: Performed By: #### 1 6897168, 4749812, 1225859 ####[facility] [address] [place] [address] Chloride [Moles/Vol] 102 mmol/L Normal 101-111 [facility] Comment on above: Performed By: #### 1 6445554, 9079490, 1919161 ####[facility] [address] [place] [address] CO2 [Moles/Vol] 28 mmol/L Normal 21-31 [facility] Comment on above: Performed By: #### 1 2346717, 6396429, 8907645 ####[facility] [address] [place] [address] Creatinine [Mass/Vol] 1.0 mg/dL Normal 0.5-1.3 [facility] Comment on above: Performed By: #### 1 2479455, 0707849, 0604246 ####[facility] [address] [place] [address] Glucose [Mass/Vol] 98 mg/dL Normal 55-199 [facility] Comment on above: Performed By: #### 1 4000067, 3420953, 9903644 ####[facility] [address] [place] [address] Potassium [Moles/Vol] 4.3 mmol/L Normal 3.5-5.3 [facility] Comment on above: Performed By: #### 1 1213633, 8482714, 4272444 ####[facility] [address] [place] [address] Sodium [Moles/Vol] 136 mmol/L Normal 135-145 [facility] Comment on above: Performed By: #### 1 3409536, 6639916, 9955655 ####[facility] [address] [place] [address] Urea nitrogen [Mass/Vol] 14 mg/dL Normal 5-21 [facility] Comment on above: Performed By: #### 1 0707415, 9949688, 2121172 ####[place] [address] [place] [address] Urea nitrogen/Creatinine [Mass ratio] 14 No Units Normal 10-20 [facility] Comment on above: Performed By: #### 1 0947938, 7935007, 7801373 ####[address] [address] CBC w/ Auto Diffon 4 Basophils/100 WBC (Bld) 1.0 % Normal 0.0-2.0 [facility] Comment on above: Performed By: #### 1 9946267, 7326345, 2924252 ####[address] [address] Basophils/Leukocytes Auto (Bld) [Pure # fraction] 0.0 E9/L Normal 0.0-0.2 [facility] Comment on above: Performed By: #### 1 4911709, 7920929, 4375825 ####[address] [address] Eosinophils (Bld) [#/Vol] 0.2 E9/L Normal 0.0-0.5 [facility] Comment on above: Performed By: #### 1 0165027, 8228163, 2341793 ####[address] [address] Eosinophils/100 WBC (Bld) 3.9 % Normal 0.0-8.0 [facility] Comment on above: Performed By: #### 1 2131527, 1749118, 9227846 ####[address] [address] Erythrocyte distribution width (RBC) [Ratio] 14.0 % Normal 10.9-14.2 [facility] Comment on above: Performed By: #### 1 6382332, 2229155, 5463614 ####[address] [address] Hematocrit (Bld) [Volume fraction] 39.1 % Normal 37.7-49.0 [facility] Comment on above: Performed By: #### 1 7880070, 8027158, 7218711 ####[address] [address] Hemoglobin (Bld) [Mass/Vol] 13.0 g/dL Low 13.5-17.5 [facility] Comment on above: Performed By: #### 1 3020972, 4176556, 6114598 ####[address] [address] Lymphocytes (Bld) [#/Vol] 1.4 E9/L Normal 1.0-4.0 [facility] Comment on above: Performed By: #### 1 7131734, 3761043, 6291855 ####[address] [address] Lymphocytes/100 WBC (Bld) 31.0 % Normal 14.0-50.0 [facility] Comment on above: Performed By: #### 1 5345500, 6251697, 1936826 ####[address] [address] MCH (RBC) [Entitic mass] 30.3 pg Normal 27.0-34.0 [facility] Comment on above: Performed By: #### 1 1340774, 1676075, 3696026 ####[address] [address] MCHC (RBC) [Mass/Vol] 33.3 g/dL Normal 31.4-36.0 [facility] Comment on above: Performed By: #### 1 8595276, 3970086, 5364259 ####[address] [address] MCV (RBC) [Entitic vol] 91.2 fL Normal 80.0-100.0 [facility] Comment on above: Performed By: #### 1 1456047, 7384358, 9378980 ####[facility] [address] [address] Monocytes (Bld) [#/Vol] 0.4 E9/L Normal 0.2-1.0 [facility] Comment on above: Performed By: #### 1 0392486, 8408349, 4590839 ####[address] [address] Neutrophils (Bld) [#/Vol] 2.5 E9/L Normal 2.0-7.5 [facility] Comment on above: Performed By: #### 1 2695189, 4488723, 7772596 ####[address] [address] Neutrophils/100 WBC (Bld) 55.3 % Normal 36.0-75.0 [facility] Comment on above: Performed By: #### 1 3376223, 3580441, 8435565 ####[place] [address] Platelet 157.0 E9/L Normal 150.0-500.0 [facility] Comment on above: Performed By: #### 1 0270099, 6808580, 7797889 ####[address] [address] Platelet mean volume (Bld) [Entitic vol] 9.7 fL Normal 6.4-10.8 [facility] Comment on above: Performed By: #### 1 6913208, 5415891, 9645964 ####[address] [address] RBC (Bld) [#/Vol] 4.3 E12/L Normal 4.3-5.9 [facility] Comment on above: Performed By: #### 1 4268877, 6521064, 5984207 ####[address] [address] WBC corrected for nucl RBC Auto (Bld) [#/Vol] 4.6 E9/L Normal 4.0-11.0 [facility] Comment on above: Performed By: #### 1 5776026, 6890716, 1132706 ####[facility] [address] [place] [address] CHEMISTRYOrdered By: SYSTEM SYSTEM on 03-06-2024 Anion [...] for Treatmenton 02-13 Consent for Treatment [id number] B4#1.00TIFF Normal [facility] HEMATOLOGYOrdered By: SYSTEM SYSTEM on 03-06-2024 Basophils/100 [...] 03-06-2024 eGFR 75 mL/min/1.73 m2 Normal >=59 [facility] Comment on above: Order Comment: Order added by Discern Expert. Performed By: #### 1 6584951, 4951249, 7430482 ####[facility] [address] [place] [address] Consultation Noteon 03-01-20 Consultation Note [id number] 5E#1.00TIFF Normal [facility] Lab Reportson 02-27-2024 Lab Reports [id number] E7#1.00TIFF Normal [facility] Family Medicine Office/Clini c Noteon 02-07-2024 Family Medicine Office/Clinic Note HPI Staff Dariel is an 83 year old male presenting for 2 month follow up DM Needs refills of levothyroxine and glimiperide to [facility] Do you have any of the following symptoms? Foot Exam: none Eye Exam: due Last A1C: Hgb A1C %: 5.6 % (12/01/23 14:31:00) Statin: pravastatin 40mg questions/concerns: saw kidney specialist (Rashad) about 3 weeks ago ( no report in file) was told to stop the omeprazole and meloxicam and cut salt tablets from tid to bid. Also says [facility] sent him a letter and [...] his left side. 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 His omeprazole and meloxicam were [...] cardiovascular disease) (I25.10: Atherosclerotic heart disease of [place] coronary artery without angina pectoris) He has [...] with voice recognition artificial intelligence software, specifically [employer], [employer] and or [employer]. Substitutions may have occurred due to the inherent limitations of voice recognition and artificial intelligence software. ATTESTATION: Documentation services were performed after patient or guardian consented to allow BUILD to record this visit. MELISSA family protection specialist and provider reviewed before signing. MELISSA: [...] in life (more content not included)... Normal [facility] Comment on above: Result Comment: Elec tronically Signed By: Kylah Medina MD\.br\Date and Time Signed: 02/07/24 12:44 EDT\.br\Electronically Co-Signed By: Allie Conway.br\Date and Time Co-Signed: 02/02/24 11:43 EDT Ambulatory [...] Appointments Tuesday 9:00 AM EDT With: Where: [facility] Invalid Interpretation Code [address] [place] [address]- \.br\ 2023 9:00 AM EDT \.br\ With: Kylah Medina MD\.br\ Where: [facility] Physician Referralon 024 Physician Referral [id number] 6#1.00TIFF [facility] Lab Reportson 01-05-2024 Lab Reports [id number] C1#1.00TIFF [facility] Transfer Inon 12-08-2023 Transfer In [id number] F9#1.00TIFF [facility] Auth for Release of Medical Recordson 12-06-2023 Auth for Release of Medical Records [id number] E#1.00TIFF Normal [facility] Family Medicine Office/Clini c Noteon 12-02-2023 Family Medicine Office/Clinic Note HPI Staff Dariel is an 83 year old male presenting to [facility] Establish Care: History: a fib, DM [...] records from Dr. Jada Rene. 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 He and his family relocated from [place] to [place] 7 months ago, but they originally grew up in [place]. Review of Systems PHQ Score Initial Depression [...] cardiovascular disease) (I25.10: Atherosclerotic heart disease of [place] coronary artery without angina pectoris) He will [...] with voice recognition artificial intelligence software, specifically Sh[employer]op, [employer] and or [employer]. Substitutions may have occurred due to the inherent limitations of voice recognition and artificial intelligence software. Documentation services were performed after patient or guardian consented to allow BUILD to record this visit. MELISSA family protection specialist and provider reviewed before signing. MELISSA: [...] Oral, Horace (more content not included)... Normal [facility] Comment on above: Result Comment: Elec tronically Signed By: Kylah Medina MD\.br\Date and Time Signed: 12/02/23 08:22 EST\.br\Electronically Co-Signed By: Allie Conway\.br\Date and Time Co-Signed: 12/01/23 17:49 EST Lab Reportson 12-02-2023 Lab Reports [id number] 1#1.00TIFF [facility] Ambulatory Visit Summaryon 0 12-01-2023 Ambulatory [...] choosing us for your care. Normal [facility] CBC w/ Auto Diffon 01-18-202 4 NRBC Man 0 Normal 0-0 [facility] Comment on above: Performed By: #### 2 269083, 9973568, 35235883, 3495080, 117023893 #### [facility] Laboratory [address] [place] [address] Basophil Absolute 0.0 E9/L Normal 0.0-0.2 [facility] Comment on above: Performed By: #### 2 060033, 5016145, 43006651, 2674277, 830057601 #### [facility] Laboratory [address] [place] [address] Basophils/100 WBC (Bld) 0.4 % Normal 0.0-2.0 [facility] Comment on above: Performed By: #### 2 023984, 9050763, 94421508, 7395466, 193494540 #### [facility] Laboratory [address] [place] [address] Eos Absolute 0.2 E9/L Normal 0.0-0.5 [facility] Comment on above: Performed By: #### 2 120459, 3543547, 68869890, 6209849, 526890168 #### [facility] Laboratory [address] [place] [address] Eosinophils/100 WBC (Bld) 2.9 % Normal 0.0-8.0 [facility] Comment on above: Performed By: #### 2 867625, 7414584, 89258773, 0089699, 614767947 #### [facility] Laboratory [address] [place] [address] Erythrocyte distribution width (RBC) [Ratio] 14.0 % Normal 10.9-14.2 [facility] Comment on above: Performed By: #### 2 264238, 2692692, 67869474, 7538215, 686803792 #### [facility] Laboratory [address] [place] [address] Hematocrit (Bld) [Volume fraction] 37.0 % Low 37.7-49.0 [facility] Comment on above: Performed By: #### 2 783251, 3006923, 14471428, 6255849, 209992216 #### [facility] Laboratory [address] [place] [address] Hemoglobin (Bld) [Mass/Vol] 12.1 g/dL Low 13.5-17.5 [facility] Comment on above: Performed By: #### 2 969522, 6139902, 67994518, 6608565, 020306191 #### [facility] Laboratory [address] [place] [address] Lymph Absolute 1.8 E9/L Normal 1.0-4.0 [facility] Comment on above: Performed By: #### 2 415975, 4671092, 54480499, 6997186, 439290736 #### [facility] Laboratory [address] [place], [place] [address] Lymphocytes/100 WBC (Bld) 29.3 % Normal 14.0-50.0 [facility] Comment on above: Performed By: #### 2 182973, 5321187, 69168547, 4632999, 394763772 #### [facility] Laboratory [address] [place] [address] MCH (RBC) [Entitic mass] 30.8 pg Normal 27.0-34.0 [facility] Comment on above: Performed By: #### 2 674080, 4697650, 37366400, 6924835, 607999955 #### [facility] Laboratory [address] [place] [address] MCHC (RBC) [Mass/Vol] 32.8 g/dL Normal 31.4-36.0 [facility] Comment on above: Performed By: #### 2 471299, 0044565, 49410784, 2643942, 920926986 #### [facility] Laboratory [address] [place] [address] MCV (RBC) [Entitic vol] 93.8 fL Normal 80.0-100.0 [facility] Comment on above: Performed By: #### 2 157626, 3246711, 15854895, 6592874, 500707773 #### [facility] Laboratory [address] [place] [address] [place] Absolute 0.5 E9/L Normal 0.2-1.0 [facility] Comment on above: Performed By: #### 2 953121, 1067709, 76186042, 4057749, 530932488 #### [facility] Laboratory [address] [place] [address] Monocytes/100 WBC (Bld) 7.9 % Normal 4.0-14.0 [facility] Comment on above: Performed By: #### 2 835373, 3605325, 64747957, 9195441, 046356182 #### [facility] Laboratory [address] [place] [address] Neutro Absolute 3.6 E9/L Normal 2.0-7.5 [facility] Comment on above: Performed By: #### 2 183083, 6675134, 96958525, 8966780, 786243906 #### [facility] Laboratory [address] [place] [address] Neutro Auto 59.5 % Normal 36.0-75.0 [facility] Comment on above: Performed By: #### 2 484137, 0760551, 91084294, 0275513, 292672059 #### [facility] Laboratory [address] [place] [address] Platelet 198.0 E9/L Normal 150.0-500.0 [facility] Comment on above: Performed By: #### 2 575945, 9929246, 96425054, 0598980, 753026659 #### [facility] Laboratory [address] [place] [address] Platelet mean volume (Bld) [Entitic vol] 9.5 fL Normal 6.4-10.8 [facility] Comment on above: Performed By: #### 2 970778, 5636819, 59261997, 1865120, 153695061 #### [facility] Laboratory [address] [place] [address] RBC 3.9 E12/L Low 4.3-5.9 [facility] Comment on above: Performed By: #### 2 425712, 4896309, 70873206, 4281214, 428707699 #### [facility] Laboratory [address] [place] [address] WBC 6.0 E9/L Normal 4.0-11.0 [facility] Comment on above: Performed By: #### 2 627659, 1974315, 12307457, 6415483, 277600574 #### [facility] Laboratory [address] [place] [address] CHEMISTRYOrdered By: Kate Sotomayor on 12-01-2023 U [...] (Bld) [Mass fraction] 5.6 % Normal <=5.9% [facility] ChemAutoSS CMPon 12-01-2023 Albumin [Mass/Vol] 3.9 g/dL Normal 3.3-5.0 [facility] Comment on above: Performed By: #### 2 503375, 8725806, 02541493, 6195691, 537215984 #### [facility] Laboratory [address] [place] [address] Albumin/Globulin [Mass ratio] 1.6 {ratio} Normal 1.1-2.2 [facility] Comment on above: Performed By: #### 2 371015, 6523046, 39703526, 0126240, 658068928 #### [facility] Laboratory [address] [place] [address] Alk Phos 75 Int._Unit/L Normal 21-98 [facility] Comment on above: Performed By: #### 2 723908, 5823461, 97929373, 5543134, [id number] #### [facility] Laboratory [address] [place] [address] ALT 12 Int._Unit/L Normal 6-46 [facility] Comment on above: Performed By: #### 2 909477, 1760357, 47100103, 1361717, [id number] #### [facility] Laboratory [address] [place] [address] Anion gap [Moles/Vol] 9 mmol/L Normal 6-16 [facility] Comment on above: Performed By: #### 2 737981, 1615608, 23763691, 1481558, [id number] #### [facility] Laboratory [address] [place] [address] AST 20 Int._Unit/L Normal 5-43 [facility] Comment on above: Performed By: #### 2 145646, 6335959, 30180038, 2298966, [id number] #### [facility] Laboratory [address] [place] [address] Bili Total 0.9 mg/dL Normal 0.0-1.1 [facility] Comment on above: Performed By: #### 2 806454, 1079581, 22977396, 7072799, [id number] #### [facility] Laboratory [address] [place] [address] BUN/Creat Ratio 10 No Units Normal 10-20 [facility] Comment on above: Performed By: #### 2 775044, 4991325, 30840409, 3569285, 810155339 #### [facility] Laboratory [address] [place] [address] Calcium [Mass/Vol] 8.7 mg/dL Low 8.9-11.1 [facility] Comment on above: Performed By: #### 2 594969, 2295785, 66169123, 1376140, 734447044 #### [facility] Laboratory [address] [place] [address] Chloride [Moles/Vol] 104 mmol/L Normal 101-111 [facility] Comment on above: Performed By: #### 2 292519, 4299652, 29690693, 8900939, [id number] #### [facility] Laboratory [address] [place] [address] CO2 [Moles/Vol] 30 mmol/L Normal 21-31 [facility] Comment on above: Performed By: #### 2 174835, 3919267, 62469276, 4310394, 509858362 #### [facility] Laboratory [address] [place] [address] Creatinine [Mass/Vol] 1.1 mg/dL Normal 0.5-1.3 [facility] Comment on above: Performed By: #### 2 461060, 5117634, 25748363, 1694406, 923065190 #### [facility] Laboratory [address] [place] [address] Globulin (S) [Mass/Vol] 2.5 g/dL Normal 1.4-4.0 [facility] Comment on above: Performed By: #### 2 259666, 1169031, 90820102, 7702590, 408013646 #### [facility] [address] [place] [address] Glucose [Mass/Vol] 72 mg/dL Normal 55-199 [facility] Comment on above: Performed By: #### 2 570426, 4168250, 37824354, 1005785, 156536554 #### [facility] Laboratory [address] [place] [address] Potassium [Moles/Vol] 4.2 mmol/L Normal 3.5-5.3 [facility] Comment on above: Performed By: #### 2 728253, 8907173, 45287775, 7158967, 616976317 #### [facility] [address] [place] [address] Protein [Mass/Vol] 6.4 g/dL Normal 6.0-7.8 [facility] Comment on above: Performed By: #### 2 210371, 8252300, 97124700, 4257991, 255080243 #### [facility] [address] [place] [address] Sodium [Moles/Vol] 139 mmol/L Normal 135-145 [facility] Comment on above: Performed By: #### 2 204345, 2975149, 69952757, 1297815, 599257923 #### [facility] [address] [place] [address] Urea nitrogen [Mass/Vol] 11 mg/dL Normal 5-21 [facility] Comment on above: Performed By: #### 2 680805, 1705956, 55737695, 7472522, 282082203 #### [facility] [address] [place] [address] HEMATOLOGYOrdered By: SYSTEM SYSTEM on 12-01-2023 Basophil [...] Normal 80.0 - 100.0 fL Remisol Heme [place] Absolute 0.5 E9/L Normal 0.2 - 1.0 [...] 1 Normal 0 - 0 Remisol Heme [id number] 12-01-2023 HbA1c (Bld) [Mass fraction] 5.6 % Normal <=5.9 [facility] Comment on above: Performed By: #### 2 511943, 0596021, 59474708, 3476033, 329475758 ####[facility] [address] [place] [address] Lipid Panelon 12-01-2023 Cholesterol [Mass/Vol] 156 mg/dL Normal 120-200 [facility] Comment on above: Performed By: #### 2 493210, 7770140, 69997985, 1077016, 064508175 #### [facility] [address] [place] [address] Cholesterol in HDL [Mass/Vol] 51 mg/dL Invalid Interpretation Code [facility] Comment on above: Result Comment: '>= 60 LOW RISK' '<= 40 HIGH RISK' Performed By: #### 2 174964, 2369594, 10976287, 9792870, 622790609 #### [facility] [address] [place] [address] Cholesterol in LDL [Mass/Vol] 89 mg/dL Normal <=129 [facility] Comment on above: Performed By: #### 2 243171, 6855080, 87042871, 8665868, 841541333 #### [facility] [address] [place] [address] Cholesterol in VLDL [Mass/Vol] 18 mg/dL Normal 7-40 [facility] Comment on above: Performed By: #### 2 606260, 5116374, 26912970, 6034636, 640383868 #### [facility] [address] [place] [address] Triglyceride [Mass/Vol] 92 mg/dL Normal <=149 [facility] Comment on above: Performed By: #### 2 104940, 5730995, 58218923, 6993057, 090590848 #### [facility] [address] [place] [address] U Microalbon 12-01-2023 U Microalb <2.0 Normal 0.0-19.0 [facility] Comment on above: Performed By: #### 1 [id number], 61021241 ####[facility] [address] [place] [address] U Protein/Creat Ratioon 11-14 U Creatinine 62.5 mg/dL Invalid Interpretation Code [facility] Comment on above: Performed By: #### 1 [id number], [id number] ####[facility] [address] [place] [address] U Prot/Creat Ratio NOT CALCULATED Invalid Interpretation Code .00-200.00 [facility] Comment on above: Performed By: #### 1 [id number], [id number] ####[facility] [address] [place] [address] Ur Total Protein <6.0 Invalid Interpretation Code [facility] Comment on above: Performed By: #### 1 [id number], [id number] ####[facility] [address] [place] [address] eGFRon 12-01-2023 eGFR 67 mL/min/1.73 m2 Normal >=59 [facility] Comment on above: Order Comment: Order added by Discern Expert. Performed By: #### 2 635353, 4130349, 61439952, 1017990, [id number] #### [facility] [address] [place] [id number] Basic Metabolic Panelon 10-15 Anion gap [Moles/Vol] 8.1 mmol/L Normal 6.0-15.0 [facility] Comment on above: Order Comment: Reaso n for Exam Hyponatremia Performed By: #### C BC, BMP #### [facility] [address] [place] 8[address] [place] Calcium [Mass/Vol] 9.3 mg/dL Normal 8.6-10.3 [facility] Comment on above: Order Comment: Reaso n for Exam Hyponatremia Result Comment: PERF ORMED BY: [place] [id number] PATHOLOGIST CONTAINER FINISHER DANNY NEAL M.D. Performed By: #### C BC, BMP #### [facility] [address] [place] [address] [place] Chloride [Moles/Vol] 102 mmol/L Normal 98-107 [facility] [employer] Other Comment on above: Order Comment: Reaso n for Exam Hyponatremia Performed By: #### C BC, BMP #### [facility] [address] [place] [address] [place] CO2 [Moles/Vol] 32.4 mmol/L High 21.0-31.0 [facility] Comment on above: Order Comment: Reaso n for Exam Hyponatremia Performed By: #### C BC, BMP #### [address] Creatinine [Mass/Vol] 1.07 mg/dL Normal 0.70-1.30 [facility] Comment on above: Order Comment: Reaso n for Exam Hyponatremia Performed By: #### C BC, BMP #### [place] [address] [place] GFR/1.73 sq M.predicted MDRD (S/P/Bld) [Vol rate/Area] mL/min/{1.73_m2} Normal [employer] Other Comment on above: Order Comment: Reaso n for Exam Hyponatremia Performed By: #### C BC, BMP #### [address] Glucose [Mass/Vol] 93 mg/dL Normal 70-100 [employer] Other Comment on above: Order Comment: Reaso n for Exam Hyponatremia Result Comment: [place] Glucose Reference Range is dependent on time and content of last meal. Glucose of more than 200 mg/dL in a nonstressed, ambulatory subject supports the diagnosis of Diabetes Mellitus. ADA recommended reference range Performed By: #### C BC, BMP #### [place] [address] [place] Potassium [Moles/Vol] 4.5 mmol/L Normal 3.5-5.1 [facility] Comment on above: Order Comment: Reaso n for Exam Hyponatremia Performed By: #### C BC, BMP #### [place] [address] [place] Sodium [Moles/Vol] 138 mmol/L Normal 136-145 [employer] Other Comment on above: Order Comment: Reaso n for Exam Hyponatremia Performed By: #### C BC, BMP #### [address] [address] [place] Urea nitrogen [Mass/Vol] 13 mg/dL Normal 7-25 [employer] Other Comment on above: Order Comment: Reaso n for Exam Hyponatremia Performed By: #### Kasey BROOKS, BMP #### [facility] [address] Calcium [Mass/Vol] 9.4490986 mg/dL Normal 8.6-10.3 mg/ dL Contests4Causes [facility] [employer] Other CO2 [Moles/Vol] 32.34973363 mmol/L High 21.0-31.0 mm ol/L [employer] Other Creatinine [Mass/Vol] 1.35127901 mg/dL Normal 0.70-1.30 mg/dL [employer] Other Potassium [Moles/Vol] 4.98537706 mmol/L Normal 3.5-5.1 mmol/L [employer] [facility] [employer] Other Complete Blood Count Auto Di ffon 11-02-2023 Basophils (Bld) [#/Vol] 0.1 10*3/uL Normal 0.0-0.2 [facility] Comment on above: Order Comment: Reaso n for Exam Atrial fibrillation Result Comment: PERF ORMED BY: [place] [address] PATHOLOGIST CONTAINER FINISHER DANNY NEAL M.D. Performed By: #### Kasey BROOKS, BMP #### [facility] [address] [place] [address] [place] Basophils/100 WBC (Bld) 1.0 % Normal . [facility] Comment on above: Order Comment: Reaso n for Exam Atrial fibrillation Performed By: #### C CECILIA, BMP #### [facility] [address] [place] [address] [place] Eosinophils (Bld) [#/Vol] 0.1 10*3/uL Normal 0.0-0.45 [facility] Comment on above: Order Comment: Reaso n for Exam Atrial fibrillation Performed By: #### Kasey BROOKS, BMP #### [address] Eosinophils/100 WBC (Bld) 2.1 % Normal . [facility] Comment on above: Order Comment: Reaso n for Exam Atrial fibrillation Performed By: #### C BC, BMP #### [address] Erythrocyte distribution width (RBC) [Ratio] 14.0 % Normal 12.0-14.8 [facility] Comment on above: Order Comment: Reaso n for Exam Atrial fibrillation Performed By: #### C BC, BMP #### [address] Hematocrit (Bld) [Volume fraction] 38.8 % Normal 38.8-50.0 [facility] Comment on above: Order Comment: Reaso n for Exam Atrial fibrillation Performed By: #### C BC, BMP #### [address] Hemoglobin (Bld) [Mass/Vol] 13.2 g/dL Normal 13.0-17.0 [facility] Comment on above: Order Comment: Reaso n for Exam Atrial fibrillation Performed By: #### C BC, BMP #### [address] Lymphocytes (Bld) [#/Vol] 1.3 10*3/uL Normal 1.00-4.8 [facility] Comment on above: Order Comment: Reaso n for Exam Atrial fibrillation Performed By: #### C BC, BMP #### [address] Lymphocytes/100 WBC (Bld) 21.8 % Normal . [facility] Comment on above: Order Comment: Reaso n for Exam Atrial fibrillation Performed By: #### C BC, BMP #### [address] MCH (RBC) [Entitic mass] 31.5 pg Normal 27.5-35.2 [facility] Comment on above: Order Comment: Reaso n for Exam Atrial fibrillation Performed By: #### C BC, BMP #### [facility] [address] MCV (RBC) [Entitic vol] 92.7 fL Normal 83.5-101 [facility] Comment on above: Order Comment: Reaso n for Exam Atrial fibrillation Performed By: #### C BC, BMP #### [facility] [address] Mean Corpuscular HGB Conc 34.0 g/dL Normal 32.5-35.6 [facility] Comment on above: Order Comment: Reaso n for Exam Atrial fibrillation Performed By: #### C BC, BMP #### [address] Monocytes (Bld) [#/Vol] 0.5 10*3/uL Normal 0.0-0.8 [facility] Comment on above: Order Comment: Reaso n for Exam Atrial fibrillation Performed By: #### C BC, BMP #### [place] [address] [place] Monocytes/100 WBC (Bld) 8.5 % Normal . [facility] Comment on above: Order Comment: Reaso n for Exam Atrial fibrillation Performed By: #### C BC, BMP #### [address] Neutrophils (Bld) [#/Vol] 4.0 10*3/uL Normal 1.8-7.7 [facility] Comment on above: Order Comment: Reaso n for Exam Atrial fibrillation Performed By: #### C BC, BMP #### [place] [address] [place] Neutrophils/100 WBC (Bld) 66.6 % Normal . [facility] Comment on above: Order Comment: Reaso n for Exam Atrial fibrillation Performed By: #### C BC, BMP #### [address] NRBC% 0.1 /100{WBC} Normal 0-0.5 [facility] Comment on above: Order Comment: Reaso n for Exam Atrial fibrillation Performed By: #### C BC, BMP #### [facility] [address] Platelet mean volume (Bld) [Entitic vol] 9.4 fL Normal 6.6-10.1 [facility] Comment on above: Order Comment: Reaso n for Exam Atrial fibrillation Performed By: #### C BC, BMP #### [facility] [address] [place] [id number] [facility] Platelets (Bld) [#/Vol] 153 10*3/uL Normal 150-450 [employer] Other Comment on above: Order Comment: Reaso n for Exam Atrial fibrillation Performed By: #### C BC, BMP #### [facility] [address] RBC (Bld) [#/Vol] 4.19 10*6/uL Normal 3.90-5.60 [employer] Other Comment on above: Order Comment: Reaso n for Exam Atrial fibrillation Performed By: #### C BC, BMP #### [facility] [address] [place] [address] [place] WBC (Bld) [#/Vol] 6.1 10*3/uL Normal 4.1-10.5 [facility] Comment on above: Order Comment: Reaso n for Exam Atrial fibrillation Performed By: #### C BC, BMP #### [facility] [address] [place] [address] [place] Basophils (Bld) [#/Vol] 0.759614656 10*3/uL Normal 0.0-0.2 10*3/uL [employer] Other Basophils/100 WBC (Bld) 1.000 % . % [employer] Other Eosinophils (Bld) [#/Vol] 0.018713387 10*3/uL Normal 0.0-0.45 10*3/uL [employer] Other Eosinophils/100 WBC (Bld) 2.100 % . % [employer] Other Erythrocyte distribution width (RBC) [Ratio] 14.000 % Normal 12.0-14.8 % [employer] Other Hematocrit (Bld) [Volume fraction] 38.800 % Normal 38.8-50.0 % [employer] Other Hemoglobin (Bld) [Mass/Vol] 13.751389 g/dL Normal 13.0-17.0 g/dL [employer] Other Lymphocytes (Bld) [#/Vol] 1.194214050 10*3/uL Normal 1.00-4.8 10*3/uL [employer] Other Lymphocytes/100 WBC (Bld) 21.800 % . % [employer] Other MCH (RBC) [Entitic mass] 31.5000 pg Normal 27.5-35.2 pg [employer] Other MCV (RBC) [Entitic vol] 92.7000 fL Normal 83.5-101 fL [employer] Other Monocytes (Bld) [#/Vol] 0.614467222 10*3/uL Normal 0.0-0.8 10*3/uL [employer] Other Monocytes/100 WBC (Bld) 8.500 % . % [employer] Other Neutrophils (Bld) [#/Vol] 4.114573018 10*3/uL Normal 1.8-7.7 10*3/uL [employer] Other Neutrophils/100 WBC (Bld) 66.600 % . % [employer] Other Platelet mean volume (Bld) [Entitic vol] 9.4000 fL Normal 6.6-10.1 fL [employer] Other WBC (Bld) [#/Vol] 6.866634437 10*3/uL Normal 4.1-10.5 10*3/uL [employer] Other Complete Blood Count Auto Diff 6.1 10*3/uL Normal 4.1-10.5 10*3/uL [employer] Other Complete Blood Count Auto Diff 34.0 g/dL Normal 32.5-35.6 g/dL [employer] Other Complete Blood Count Auto Diff 0.1 /100{WBC} Normal 0-0.5 /100{WBC} [employer] Other PSA Screen (Yearly Only)on 01-03-2023 PSA Screen (Yearly Only) 1.940 ng/mL Normal 0.000-4.000 [facility] Comment on above: Order Comment: Reaso n for Exam Prostate cancer screening Result Comment: Seri al tumor marker results determined by assays using different manufacturers or methods may not be comparable. 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 PERFORMED BY: [place] [address] PATHOLOGIST CONTAINER FINISHER DANNY NEAL M.D. Performed By: #### P SAS #### [facility] [address] [place] [address] [facility] Prothrombin Time INRon 06-16 INR Coag (PPP) [Relative time] 2.4 {INR} Normal [employer] Other Comment on above: Result Comment: INR [...] heart valves: 3 - 4.5 PERFORMED BY: [place] [address] PATHOLOGIST CONTAINER FINISHER DANNY NEAL M.D. Performed By: #### P T #### [address] PT Coag (PPP) [Time] 27.8 s High 9.0-12.9 [facility] Comment on above: Performed By: #### P T #### [facility] [address] [place] [address] [facility] PT Coag (PPP) [Time] 27.800 s High 9.0-12.9 s Maria [employer] Other Coding Summaryon 05-12-2020 Coding Summary CODING DATE: 05/12/2020 FINAL [facility] STATUS: Home PAYOR: [...] Horan Date Saved: 05/12/2020 02:18 pm Normal [facility] ED Clinical Summaryon 2019 ED Clinical Summary [facility] ? Urgent Care [address] [place] [address] Clinical Summary PERSON INFORMATION Name: DARIEL ZABALA Age: 80 Years Sex: MALE : 1940 MRN: Acct#: Visit Reason: UC - Ear Problem; BILAT EAR PROBLEM Arrival: 05/08/2020 09:32:00 Discharge: 05/08/2020 10:15:00 LOS: 000 00:43 Check In: 05/08/2020 09:32:00 Checkout: 05/08/2020 10:15:00 Address: [address] [place] [id number] PCP: Provider, Unlisted PROVIDER INFORMATION Provider Role [...] Adult Follow-Up: With: Address: When: Andrés Arellano [facility], [address] [place] [id number] Business (1) Comments: Please follow-up with your Doctor or Dr. Arellano, Medical Doctor audio visual collections coordinator, call their offices and make ointment to be seen in 3 days or sooner for continued care, please purchase rlpa-vdl-rnznotu Debrox which helps breakdown earwax, take all your medications as previously prescribed, drink plenty of water for hydration, and return back to urgent care center for any worsening symptoms, concerns, or complications. DIAGNOSIS: 1:Impacted cerumen of both ears Patient Understands: Yes - Patient/family/care attendant verbalizes understanding of instructions given Comment: Normal [facility] ED Patient Summaryon 020 ED Patient Summary [facility] ? Urgent Care [address] [place], [place] [id number] PATIENT DISCHARGE INSTRUCTIONS Patient Information Name: DARIEL ZABALA Age: 80 Years Date of : 1940 Reason For Visit: UC - Ear Problem; BILAT EAR PROBLEM Arrival Time: 05/08/2020 09:32:00 Primary Care Physician: Provider, Unlisted Attending Physician: Larry Billingsley PA-C Comment: Patient Education With: Address: When: Andrés [facility], [address] [place] [id number] Business (1) Comments: Please follow-up with your Doctor or Dr. Arellano, Medical Doctor audio visual collections coordinator, call their offices and make ointment to be seen in 3 days or sooner for continued care, please purchase [id number] Debrox which helps breakdown earwax, take all [...] Follow these instructions at home: ? Take xrkz-fkm-zlbywch and prescription medicines only as told by [...] clean them according to instructions from the therapeutic sales specialist and your health care provider. Contact a [...] 12/08/2005 Document Revised: 10/12/2018 Document Reviewed: 01/11/2018 [employer] Patient Education ? 2019 [employer] Medication Information: The exam and treatment you received today in the [facility] Emergency Department were for an urgent problem and are not intended as complete care. It is important for you to follow up with a doctor, nurse practitioner, or physician?s training program assistant for ongoing care. If your symptoms [...] so we can reach you if necessary. [facility] Emergency Department has provided you with a complete list of medications post discharge. Please inform your email deployment specialist/provider of your visit and for further [...] both ears (H61.23) UC - Ear Problem ([id number]) If you received any narcotics, sedation, or [...] for Disease Control and Prevention July 2014 [facility] Patient Handouton 05-08-2020 Patient Handout Patient [...] Follow these instructions at home: ? Take vznl-eor-eagqvne and prescription medicines only as told by [...] clean them according to instructions from the therapeutic sales specialist and your health care provider. Contact a [...] 12/08/2005 Document Revised: 10/12/2018 Document Reviewed: 01/11/2018 [employer] Patient Education ? 2019 [employer] Normal [facility] Urgent Care Recordon 05-08- 020 Urgent Care Record [facility] ? Urgent Care [address] [id number] PATIENT DISCHARGE INSTRUCTIONS Patient Information Name: DARIEL ZABALA Age: 80 Years Date of : 1940 Reason For Visit: UC - Ear Problem; BILAT EAR PROBLEM Arrival Time: 05/08/2020 09:32:00 Primary Care Physician: Provider, Unlisted Attending Physician: Larry Billingsley PA-C Comment: Visit Diagnosis: Diagnoses This Visit Impacted cerumen of both ears (H61.23) UC - Ear Problem ([id number]) If you received any narcotics, sedation, or [...] legal documents With: Address: When: Andrés Arellano [facility], [address] [place] [address] [phone] Business (1) Comments: Please follow-up with your Doctor or Dr. Arellano, Medical Doctor audio visual collections coordinator, call their offices and make ointment to be seen in 3 days or sooner for continued care, please purchase vswu-ydm-wnyoqav Debrox which helps breakdown earwax, take all your medications as previously prescribed, drink plenty of water for hydration, and return back to urgent care center for any worsening symptoms, concerns, or complications. Medication Information: The exam and treatment you received today in the [facility] Urgent Care were for an urgent problem and are not intended as complete care. It is important for you to follow up with a doctor, nurse practitioner, or physician?s training program assistant for ongoing care. If your symptoms [...] so we can reach you if necessary. [facility] has provided you with a complete list of medications post discharge. Please inform your email deployment specialist/provider of your visit and for further [...] Follow these instructions at home: ? Take [id number] and prescription medicines only as told by [...] clean them according to instructions from the therapeutic sales specialist and your health care provider. Contact a [...] 12/08/2005 Document Revised: 10/12/2018 Document Reviewed: 01/11/2018 [employer] Patient Education ? 2019 [employer] Viruses or Bacteria What?s got you [...] for Disease Control and Prevention July 2014 [facility] Vital Signs Date Time Vital Sign Value Performing Clinician Facility 11-26-2024 10:27-0500 Body mass index (BMI) [Ratio] 24.74 kg/m2 Emiliano Escamilla MD Work Phone: [facility] 11-26-2024 10:27-0500 Body weight 77.11 kg Emiliano Escamilla MD Work Phone: [facility] 11-26-2024 10:27-0500 Diastolic blood pressure 73 mm[Hg] Emiliano Escamilla MD Work Phone: [facility] 11-26-2024 10:27-0500 Heart rate 87 /min Emiliano Escamilla MD Work Phone: [facility] 11-26-2024 10:27-0500 Systolic blood pressure 148 mm[Hg] Emiliano Escamilla MD Work Phone: [facility] 11-19-2024 14:27-0500 Diastolic blood pressure 82 mm[Hg] Axel Hernández [facility] 11-19-2024 14:27-0500 Heart rate 66 /min Axel Hernández [facility] 11-19-2024 14:27-0500 Mean blood pressure 103 mm[Hg] Axel Hernández [facility] 11-19-2024 14:27-0500 Respiratory rate 18 /min Axel Hernández [facility] 11-19-2024 14:27-0500 SaO2% (BldA) [Mass fraction] 95 % Axel Hernández [facility] 11-19-2024 14:27-0500 Systolic blood pressure 144 mm[Hg] Axel Hernández [facility] 11-19-2024 13:23-0500 Blood Pressure Location Axel Hernández [facility] 11-19-2024 13:23-0500 Body temperature 96.8 [degF] Axel Edgar [facility] 11-19-2024 13:23-0500 Diastolic blood pressure 69 mm[Hg] Axel Edgar [facility] 11-19-2024 13:23-0500 Heart rate 63 /min Axel Edgar [facility] 11-19-2024 13:23-0500 Mean blood pressure 92 mm[Hg] Axel Edgar [facility] 11-19-2024 13:23-0500 Respiratory rate 20 /min Axel Edgar [facility] 11-19-2024 13:23-0500 SaO2% (BldA) [Mass fraction] 99 % Axel Edgar [facility] 11-19-2024 13:23-0500 Systolic blood pressure 139 mm[Hg] Axel Edgar [facility] 11-19-2024 13:05-0500 Body temperature 97.34 [degF] Axel Edgar [facility] 11-19-2024 13:05-0500 Diastolic blood pressure 69 mm[Hg] Axel Edgar [facility] 11-19-2024 13:05-0500 Heart rate 65 /min Axel Edgar [facility] 11-19-2024 13:05-0500 Mean blood pressure 87 mm[Hg] Axel Hernández [facility] 11-19-2024 13:05-0500 Respiratory rate 16 /min Axel Edgar [facility] 11-19-2024 13:05-0500 SaO2% (BldA) [Mass fraction] 97 % Axel Hernández [facility] 11-19-2024 13:05-0500 Systolic blood pressure 122 mm[Hg] Axle Hernández [facility] 11-19-2024 12:40-0500 Body temperature 97.7 [degF] Axel Hernández [facility] 11-19-2024 12:35-0500 Respiratory rate 12 /min Aexl Hernández [facility] 11-19-2024 12:30-0500 Body temperature 96.8 [degF] Axel Hernández [facility] 11-19-2024 12:30-0500 Respiratory rate 13 /min Axel Hernández [facility] 11-19-2024 12:25-0500 Body temperature 96.8 [degF] Axel Hernández [facility] 11-19-2024 12:25-0500 Respiratory rate 15 /min Axel Hernández [facility] 11-19-2024 12:20-0500 Body temperature 96.8 [degF] Axel Hernández [facility] 11-19-2024 09:55-0500 Mean blood pressure 85 mm[Hg] Axel Hernández [facility] 11-19-2024 09:52-0500 Mean blood pressure 79 mm[Hg] Axel Hernández [facility] 10-30-2024 10:36-0500 Diastolic blood pressure 67 mm[Hg] Axel Hernández [facility] 10-30-2024 10:36-0500 Heart rate 57 /min Axel Hernández [facility] 10-30-2024 10:36-0500 Mean blood pressure 86 mm[Hg] Axel Hernández [facility] 10-30-2024 10:36-0500 Systolic blood pressure 124 mm[Hg] Axel Hernández [facility] 10-30-2024 10:34-0500 Heart rate 56 /min Axel Hernández [facility] 10-30-2024 10:34-0500 SaO2% (BldA) [Mass fraction] 100 % Axel Hernández [facility] 10-30-2024 10:34-0500 Diastolic blood pressure 83 mm[Hg] Axel Hernández [facility] 10-30-2024 10:34-0500 Mean blood pressure 105 mm[Hg] Axel Hernández [facility] 10-30-2024 10:34-0500 Systolic blood pressure 148 mm[Hg] Axel Edgar [facility] 10-03-2024 10:58-0500 Body height 176.5 cm Axel Edgar ELLIS Work Phone: [facility] 10-03-2024 10:58-0500 Body mass index (BMI) [Ratio] 26.64 kg/m2 Axel Edgar ELLIS Work Phone: [facility] 10-03-2024 10:58-0500 Body temperature 98.1 [degF] Axel Edgar ELLIS Work Phone: [facility] 10-03-2024 10:58-0500 Body weight 83.01 kg Axel Edgar ELLIS Work Phone: [facility] 08-28-2024 14:47-0400 Blood Pressure Location Davie Vargas [facility] [place] 08-28-2024 14:47-0400 Diastolic blood pressure 75 mm[Hg] Davie Vargas [facility] 08-28-2024 14:47-0400 Heart rate 65 /min Davie Vargas [facility] [place] 08-28-2024 14:47-0400 Respiratory rate 16 /min Davie Vargas [facility] [place] 08-28-2024 14:47-0400 Systolic blood pressure 119 mm[Hg] Davie Vargas [facility] [place] 06-11-2024 12:48-0400 Diastolic blood pressure 78 mm[Hg] Kashif Kirnus [facility] 06-11-2024 12:48-0400 Heart rate 70 /min Kashif Kirnus [facility] 06-11-2024 12:48-0400 Respiratory rate 18 /min Kashif Kirnus [facility] 06-11-2024 12:48-0400 SaO2% (BldA) [Mass fraction] 97 % Kashif Kirnus [facility] 06-11-2024 12:48-0400 Systolic blood pressure 138 mm[Hg] Kashif Kirnus [facility] 05-30-2024 13:31-0400 Blood Pressure Location Dixon Dubose [facility] 05-30-2024 13:31-0400 Diastolic blood pressure 70 mm[Hg] Dixon Dubose [facility] 05-30-2024 13:31-0400 Heart rate 75 /min Dixon Dubose [facility] 05-30-2024 13:31-0400 Respiratory rate 18 /min Dixon Dubose [facility] 05-30-2024 13:31-0400 SaO2% (BldA) [Mass fraction] 95 % Dixon Dubose [facility] 05-30-2024 13:31-0400 Systolic blood pressure 130 mm[Hg] Dixon Dubose [facility] 04-20-2024 13:17-0400 Diastolic blood pressure 78 mm[Hg] Kashif Barnett [facility] 04-20-2024 13:17-0400 Heart rate 62 /min Kashif Barnett [facility] 04-20-2024 13:17-0400 SaO2% (BldA) [Mass fraction] 97 % Kashif Barnett [facility] 04-20-2024 13:17-0400 Systolic blood pressure 138 mm[Hg] Kashif Barnett [facility] 03-26-2024 14:30-0400 Diastolic blood pressure 64 mm[Hg] Axel Hernández [facility] 03-26-2024 14:30-0400 Heart rate 50 /min Axel Hernández [facility] 03-26-2024 14:30-0400 Respiratory rate 16 /min Axel Hernández [facility] 03-26-2024 14:30-0400 SaO2% (BldA) [Mass fraction] 98 % Axel Hernández [facility] 03-26-2024 14:30-0400 Systolic blood pressure 128 mm[Hg] Axel Hernández [facility] 03-26-2024 13:31-0400 Heart rate 54 /min Axel Hernández [facility] 03-26-2024 13:31-0400 SaO2% (BldA) [Mass fraction] 97 % Axel Hernández [facility] 03-26-2024 13:31-0400 Respiratory rate 16 /min Axel Hernández [facility] 03-26-2024 13:30-0400 Body temperature 97.34 [degF] Axel Edgar [facility] 03-26-2024 13:29-0400 Blood Pressure Location Axel Hernández [facility] 03-26-2024 13:29-0400 Diastolic blood pressure 70 mm[Hg] Axel Edgar [facility] 03-26-2024 13:29-0400 Mean blood pressure 88 mm[Hg] Axel Edgar [facility] 03-26-2024 13:29-0400 Systolic blood pressure 125 mm[Hg] Axel Edagr [facility] 03-26-2024 13:20-0400 Body temperature 97.52 [degF] Axel Edgar [facility] 03-26-2024 13:20-0400 Diastolic blood pressure 63 mm[Hg] Axel Edgar [facility] 03-26-2024 13:20-0400 Heart rate 54 /min Axel Edgar [facility] 03-26-2024 13:20-0400 Mean blood pressure 77 mm[Hg] Axel Edgar [facility] 03-26-2024 13:20-0400 Respiratory rate 15 /min Axel Edgar [facility] 03-26-2024 13:20-0400 SaO2% (BldA) [Mass fraction] 97 % Axel Edgar [facility] 03-26-2024 13:20-0400 Systolic blood pressure 104 mm[Hg] Axel Hernández [facility] 03-26-2024 13:15-0400 Mean blood pressure 73 mm[Hg] Axel Edgar [facility] 03-26-2024 13:15-0400 Respiratory rate 15 /min Axel Edgar [facility] 03-26-2024 13:10-0400 Mean blood pressure 72 mm[Hg] Axel Edgar [facility] 03-26-2024 13:10-0400 Respiratory rate 11 /min Axel Edgar [facility] 03-26-2024 12:55-0400 Body temperature 97.52 [degF] Axel Edgar [facility] 03-26-2024 12:50-0400 Respiratory rate 1 /min Axel Edgar [facility] 03-26-2024 09:36-0400 Blood Pressure Location Axel Edgar [facility] 03-26-2024 09:36-0400 Mean blood pressure 112 mm[Hg] Axel Edgar [facility] 03-26-2024 09:34-0400 Mean blood pressure 97 mm[Hg] Axel Edgar [facility] 03-26-2024 09:34-0400 Body temperature 97.34 [degF] Axel Edgar [facility] 03-26-2024 09:34-0400 Blood Pressure Location Axel Edgar [facility] 03-26-2024 09:34-0400 Heart rate 50 /min Axel Edgar [facility] 03-06-2024 08:11-0400 Blood Pressure Location Axel Hernández [facility] 03-06-2024 08:11-0400 Diastolic blood pressure 74 mm[Hg] Axel Hernández [facility] 03-06-2024 08:11-0400 Heart rate 56 /min Axel Hernández [facility] 03-06-2024 08:11-0400 Mean blood pressure 98 mm[Hg] Axel Hernández [facility] 03-06-2024 08:11-0400 Systolic blood pressure 147 mm[Hg] Axel Hernández [facility] 03-06-2024 08:11-0400 Heart rate 57 /min Axel Hernández [facility] 03-06-2024 08:11-0400 SaO2% (BldA) [Mass fraction] 98 % Axel Hernández [facility] 03-06-2024 08:10-0400 Blood Pressure Location Axel Hernández [facility] 03-06-2024 08:10-0400 Body temperature 98.06 [degF] Axel Hernández [facility] 03-06-2024 08:10-0400 Diastolic blood pressure 73 mm[Hg] Axel Hernández [facility] 03-06-2024 08:10-0400 Mean blood pressure 92 mm[Hg] Axel Hernández [facility] 03-06-2024 08:10-0400 Systolic blood pressure 129 mm[Hg] Axel Hernández [facility] 03-06-2024 08:10-0400 Respiratory rate 18 /min Axel Hernández [facility] 11-18-2023 11:00-0500 Body height 180.34 cm Jada Rene Other [employer] Other 11-18-2023 11:00-0500 Body mass index (BMI) [Ratio] 25.38 kg/m2 Jada Rene Other [employer] Other 11-18-2023 11:00-0500 Body temperature 97.6 [degF] Jada Rene Other [employer] Other 11-18-2023 11:00-0500 Body weight 82.56 kg Jadaendy Rene Other [employer] Other 11-18-2023 11:00-0500 Diastolic blood pressure 80 mm[Hg] Jada Rene Other [employer] Other 11-18-2023 11:00-0500 Respiratory rate 18 /min Jada Rene Other [employer] Other 11-18-2023 11:00-0500 SaO2% (BldA) [Mass fraction] 99 % Jada Rene Other [employer] Other 11-18-2023 11:00-0500 Systolic blood pressure 132 mm[Hg] Jada Rene Other [employer] Other 11-02-2023 13:00-0500 Body height 180.34 cm Jada Rene Other [employer] Other 11-02-2023 13:00-0500 Body mass index (BMI) [Ratio] 24.4 kg/m2 Jada Rene Other [employer] Other 11-02-2023 13:00-0500 Body weight 79.38 kg Jada Rene Other [employer] Other 11-02-2023 13:00-0500 Diastolic blood pressure 82 mm[Hg] Jada Rene Other [employer] Other 11-02-2023 13:00-0500 Respiratory rate 18 /min Jada Rene Other [employer] Other 11-02-2023 13:00-0500 SaO2% (BldA) [Mass fraction] 97 % Jada Rene Other [employer] Other 11-02-2023 13:00-0500 Systolic blood pressure 138 mm[Hg] Jada Rene Other [employer] Other 09-21-2023 10:00-0500 Body height 180.34 cm Jada Rene Other [employer] Other 09-21-2023 10:00-0500 Body mass index (BMI) [Ratio] 25.81 kg/m2 Jadaendy Rene Other [employer] Other 09-21-2023 10:00-0500 Body weight 83.96 kg Jada Rene Other [employer] Other 09-21-2023 10:00-0500 Diastolic blood pressure 70 mm[Hg] Jada Rene Other [employer] Other 09-21-2023 10:00-0500 Respiratory rate 18 /min Jada Rene Other [employer] Other 09-21-2023 10:00-0500 SaO2% (BldA) [Mass fraction] 98 % Jada Rene Other [employer] Other 09-21-2023 10:00-0500 Systolic blood pressure 140 mm[Hg] Jada Rene Other [employer] Other 06-16-2023 11:00-0400 Body height 180.34 cm Jadaendy Rene Other [employer] Other 06-16-2023 11:00-0400 Body mass index (BMI) [Ratio] 23.79 kg/m2 Jada Rene Other [employer] Other 06-16-2023 11:00-0400 Body weight 77.38 kg Jada Edgard Other [employer] Other 06-16-2023 11:00-0400 Diastolic blood pressure 64 mm[Hg] Jadamary Rene Other [employer] Other 06-16-2023 11:00-0400 Respiratory rate 18 /min Jada Rene Other [employer] Other 06-16-2023 11:00-0400 SaO2% (BldA) [Mass fraction] 98 % Jadamary Rene Other [employer] Other 06-16-2023 11:00-0400 Systolic blood pressure 118 mm[Hg] Jada Rene Other [employer] Other Encounters Encounter Date Encounter Type Care Provider Facility Start: 05-13-2026 ambulatory YANIQUE A REYES Facili ty:[facility] Start: 08-09-2025 ambulatory YANIQUE A REYES Facili ty:[facility] [place] Start: 05-20-2025 End: 05-20-2025 Lab Drop off YANIQUE A REYES [facility] Start: 05-20-2025 End: 05-20-2025 ambulatory Kylah Medina [facility] Start: 05-09-2025 End: 05-09-2025 ambulatory Kylah eMdina Facility:[facility] [place] [facility] Start: 02-05-2025 End: 02-06-2025 Lab Drop off Kylah Medina [facility] Start: 02-05-2025 End: 02-06-2025 ambulatory Kylah Medina Facility:[facility] Start: 01-24-2025 End: 01-24-2025 Lab Drop off Kylah Medina [facility] Start: 01-24-2025 End: 01-24-2025 ambulatory Kylah Medina [facility] Start: 01-09-2025 End: 01-09-2025 Lab Drop off Kylah Medina [facility] Start: 01-09-2025 End: 01-09-2025 ambulatory Kylah Medina [facility] Start: 12-31-2024 End: 12-31-2024 Lab Drop off Kylah Medina [facility] Start: 12-31-2024 End: 12-31-2024 ambulatory Kylah Medina Facility:[facility] Start: 12-24-2024 End: 12-24-2024 ambulatory Kylah Medina [facility] [place] [facility] Start: 12-17-2024 End: 12-17-2024 Lab Drop off Kylah Medina [facility] Start: 12-17-2024 End: 12-17-2024 ambulatory Kylah Medina Facility:[facility] Start: 12-17-2024 End: 01-22-2025 ambulatory Kylah Medina Facility:[id number] Start: 11-28-2024 End: 11-28-2024 Bamboo flowsheet Jelani Chow [employer] Work Phone: [facility] Start: 11-28-2024 End: 11-28-2024 Bamboo flowsheet Jelani Chow [employer] Work Phone: [facility] Start: 11-28-2024 End: 11-28-2024 Postop follow up visit related to original px Jelani Chow [employer] Work Phone: [facility] Comment on above: Status post carpal t unnel release (Primary Dx) Start: 11-28-2024 End: 11-28-2024 ambulatory JELANI CHOW Not Available Start: 11-26-2024 End: 11-26-2024 Bamboo flowsheet Emiliano Escamilla MD Work Phone: [facility] Start: 11-26-2024 End: 11-26-2024 Bamboo flowsheet Emiliano Escamilla MD Work Phone: [facility] Start: 11-26-2024 End: 11-26-2024 Patient encounter procedure Emiliano Escamilla MD Work Phone: [facility] Comment on above: Foreign body of righ [...] to same day surgery center Axel Hernández [facility] Start: 11-19-2024 End: 11-19-2024 ambulatory Axel Hernández Facility:[facility] Start: 11-13-2024 ambulatory Kylah GarnerShanna Medina Facility :[facility] Start: 11-12-2024 End: 11-12-2024 Lab Drop off Kylah Medina [facility] Start: 11-12-2024 End: 11-12-2024 ambulatory Kylah Kelsey Medina Facility:[facility] Start: 11-01-2024 End: 11-01-2024 ambulatory Kylah Kelsey Medina Facility:[facility] Start: 10-30-2024 End: 10-30-2024 ambulatory Axel Hernández Facility:[facility] Start: 10-30-2024 End: 10-30-2024 Patient encounter procedure Axel Hernández [facility] Start: 10-03-2024 End: 10-03-2024 Bamboo flowsheet [...] Bamboo flowsheet Shala Farrell MD Work Phone: [facility] Start: 09-28-2024 End: 09-28-2024 Bamboo flowsheet Shala Farrell MD Work Phone: [facility] Start: 09-28-2024 End: 09-28-2024 Patient encounter procedure Shala Farrell MD Work Phone: [facility] Comment on above: Pain in both upper e xtremities (Primary Dx); Carpal tunnel syndrome, bilateral Start: 09-28-2024 End: 09-28-2024 ambulatory SHALA FARRELL Not Available Start: 09-10-2024 End: 09-10-2024 ambulatory Kylah Medina [facility] [place] [facility] Start: 08-28-2024 End: 08-28-2024 ambulatory [facility]argas [facility] Start: 08-28-2024 End: 08-28-2024 Patient encounter procedure Davie Vargas [facility] [place] Start: 08-20-2024 End: 08-20-2024 Telephone encounter Shala Farrell MD Work Phone: [facility] Start: 08-13-2024 End: 08-13-2024 ambulatory Nathaniel Bonilla MD Facility:[facility] [place] Start: 08-07-2024 End: 08-07-2024 ambulatory Kylah Medina Facility:[facility] [place] [facility] Start: 07-31-2024 End: 07-31-2024 ambulatory Kylah Medina Facility:[facility] [place] [facility] Start: 07-24-2024 End: 07-24-2024 ambulatory Kylah Medina Facility:[facility] [place] [facility] Start: 07-23-2024 ambulatory Davie Vargas [facility] Start: 07-05-2024 ambulatory Kylah Medina Facility:[facility] Start: 07-03-2024 End: 07-03-2024 ambulatory Kylah Medina [facility] [place] [facility] Start: 06-20-2024 End: 06-20-2024 ambulatory AXEL HERNÁNDEZ Not Available Start: 06-11-2024 End: 06-11-2024 ambulatory XXXX NONE Facility:[facility] Start: 06-11-2024 End: 06-11-2024 Patient encounter procedure Kashif D Kirnus [facility] Start: 05-30-2024 End: 05-30-2024 ambulatory Dixon Dubose Facility:[facility] Start: 05-30-2024 End: 05-30-2024 Patient encounter procedure Dixon Endy Gracy [facility] Start: 05-21-2024 End: 05-21-2024 ambulatory Kashif Barnett Facility:[facility] Start: 05-21-2024 End: 05-21-2024 Patient encounter procedure Kashif Barnett [facility] Start: 05-03-2024 End: 05-03-2024 ambulatory MD Kylah Medina Facility:[facility] Start: 05-01-2024 End: 05-01-2024 ambulatory MD Kashif Barnett Facility:[facility] Start: 05-01-2024 End: 05-01-2024 Patient encounter procedure Kashif Barnett [facility] Start: 05-01-2024 End: 05-01-2024 Lab Drop off Kylah Medina [facility] Start: 05-01-2024 End: 05-01-2024 ambulatory MD Kylah Medina Facility:[facility] [place] [facility] Start: 04-20-2024 End: 04-20-2024 ambulatory MD Kashif Barnett Facility:[facility] Start: 04-20-2024 End: 04-20-2024 Patient encounter procedure Kashif Barnett [facility] Start: 04-04-2024 End: 04-04-2024 ambulatory AXEL HERNÁNDEZ Not Available Start: 03-26-2024 End: 03-26-2024 Admission to same day surgery center Axel Hernández [facility] Start: 03-26-2024 End: 03-26-2024 ambulatory Axel Serina Hernández Facility:[facility] Start: 03-20-2024 End: 03-20-2024 ambulatory MD Kylah Medina Facility: [facility] Start: 03-08-2024 End: 03-08-2024 ambulatory MD Kylah Medina Facility: [facility] Start: 03-06-2024 End: 03-06-2024 ambulatory Axel Serina Hernández Facility:[facility] Start: 03-06-2024 End: 03-06-2024 Patient encounter procedure Axel Serina Hernández [facility] Start: 02-15-2024 End: 02-15-2024 ambulatory AXEL Serina HERNÁNDEZ Not Available Start: 02-15-2024 End: 02-15-2024 ambulatory AXEL Serina HERNÁNDEZ Not Available Start: 02-02-2024 End: 02-02-2024 ambulatory MD Kylah Medina Facility: [facility] Start: 12-06-2023 End: 12-06-2023 ambulatory Jada Rene Other [employer] Other Start: 12-06-2023 Telephone encounter Jada Rene [facility] Start: 12-02-2023 End: 12-02-2023 ambulatory Jada Rene Other [employer] Other Start: 12-02-2023 Telephone encounter Jada Rene [facility] Start: 12-01-2023 End: 12-01-2023 Lab Drop off Kylah Medina [facility] Start: 12-01-2023 End: 12-01-2023 ambulatory MD Kylah Medina Facility:[facility] Start: 12-01-2023 ambulatory MD Kylah Medina Facility :[facility] Start: 11-18-2023 End: 11-18-2023 ambulatory Jadaendy Rene Other [employer] Other Start: 11-18-2023 Office outpatient vi sit 25 minutes Jadamary Rene [facility] Start: 11-02-2023 End: 11-02-2023 ambulatory Jada A Rene [employer] Other Start: 11-02-2023 Office outpatient vi sit 25 minutes [facility] Start: 11-02-2023 Telephone encounter [facility]y [facility] Start: 10-28-2023 End: 10-28-2023 ambulatory Jadaendy Rene Other [employer] Other Start: 10-28-2023 Telephone encounter [facility]ary R[facility] Start: 09-30-2023 End: 09-30-2023 Nurse Triage Venessa Riggins RN NURSE MASTER SCHEDULER Comment on above: Refill Request Start: 09-30-2023 Telephone encounter [facility]ary [facility] Start: 09-21-2023 End: 09-21-2023 ambulatory Jadaendy Rene Other [employer] Other Start: 09-21-2023 Office outpatient vi sit 25 minutes Jadamary Rene [facility] Start: 08-29-2023 End: 08-29-2023 ambulatory Jadaendy Rene Other [employer] Other Start: 08-29-2023 Telephone encounter Jadaendy Rene [facility] Start: 08-26-2023 End: 08-26-2023 ambulatory Jadaendy Rene Other [employer] Other Start: 08-26-2023 Telephone encounter Jadaendy Rene [facility] Start: 08-08-2023 End: 08-08-2023 ambulatory Jada Rene Other [employer] Other Start: 08-08-2023 Telephone encounter Jada Rene [facility] Start: 07-27-2023 End: 07-27-2023 ambulatory Jada Rene Other [employer] Other Start: 07-27-2023 Telephone encounter Jada Rene [facility] Start: 06-16-2023 End: 06-16-2023 ambulatory Jada Rene [employer] Other Start: 06-16-2023 Office outpatient ne w 45 minutes Jada Rene [facility] Start: 06-16-2023 Telephone encounter Jada Rene [facility] Procedures Date Procedure Procedure Detail Performing Clinician Start: 11-19-2024 [facility] CAPILLARY GLUCO SE POC Axel Hernández DO [...] procedure 12/26/2024 1:45 PM EST Office Visit [facility] [address] [place] [id number] Jelani Chwo, SADD[employer] S[employer]ITCHER [address] [place] [address] [facility] Start: 11-28-2024 End: 11-28-2024 Patient encounter procedure [facility] Comment on above: Arrived Start: 11-26-2024 End: 11-26-2024 Patient encounter procedure 11/26/2024 10:30 AM EST Office Visit [facility] [address] [place] [address] Emiliano Escamilla MD [address] [place] [address] Arrived [facility] Comment on above: Arrived Start: 10-03-2024 End: 10-03-2025 ECG 12 lead ECG 12 lead ECG Routine Pre-op testing Expected: 10/03/2024 (Approximate), Expires: 10/03/2025 [facility] Work Phone: Comment on above: Expected: 10/03/2024 (Approximate), Expires: 10/03/2025 Start: 10-03-2024 End: 10-03-2024 Patient encounter procedure 10/03/2024 10:45 AM EST Office Visit [facility] [address] [place] [address] Axel Hernández, [address] [place] [address] Right hand pain (Primary Dx); Arm weakness [facility] Comment on above: Right hand pain (Holly ayaan Dx); Arm weakness Start: 07-15-2024 Influenza vaccination Influenza Vacc ine (#1) [facility] Start: 07-15-2023 Influenza vaccination Influenza Vacc ine (#1) [facility] Start: 11-14-2022 Advance Directive Discussion Advance Directive Discussion [facility] Start: 11-14-2022 Depression Assessment Depression Ass essment [facility] Start: 03-31-2016 Pneumococcal Vaccine : 65+ (2 - PPSV23 or PCV20) Pneumococcal Vaccine: 65+ (2 - PPSV23 or PCV20) [facility] Start: 03-31-2016 Pneumococcal Vaccine : 65+ Years (2 of 2 - PPSV23 or PCV20) Pneumococcal Vaccine: 65+ Years (2 of 2 - PPSV23 or PCV20) [facility] Start: 03-24-2016 Hepatitis B surface antibody level LDL Cholesterol [facility] Start: 09-24-2015 Hemoglobin A1c/Hemoglobin.total in Blood HbA1C [facility] Start: 08-01-2015 3 comp foot exam completed Diabetic Foot Exam [facility] Start: 07-25-2015 Hepatitis B screening Urine Albumin:Creatinine Ratio [facility] Start: 02-01-2015 Urine microalbumin profile DTaP,Tdap,Td Vaccine (1 - Tdap) [facility] Start: 10-24-2013 Shingrix Vaccine (2 of 3) Shingrix Vaccine (2 of 3) [facility] Start: 09-14-2012 Hepatitis C antibody , confirmatory test Dilated Retinal Exam [facility] Start: 2002 RSV Vaccine (1 - 1-d ose 60+ series) RSV Vaccine (1 - 1-dose 60+ series) [facility] Start: 1942 Covid-19 Vaccine (#1) Covid-19 Vacci ne (#1) [facility] Immunizations Immunization Date Immunization Notes [facility] influenza virus vaccine, unspecified formulation Axel Hernández DO Work Phone: [facility] 09-21-2023 Prevnar 20 Jada Rene Other [facility] 08-19-2023 Flu Shot - Documentation Purposes Only Jada Rene Other [employer] Other 08-19-2023 influenza virus vaccine, unspecified formulation Kylah Medina [facility] 08-14-2022 influenza, seasonal, injectable Jada Rene Other [employer] Other 03-31-2015 pneumococcal conjuga te vaccine, 13 valent Jada Rene Other [facility] 08-02-2014 influenza, high dose seasonal, preservative-free Venessa Riggins RN [facility] 08-02-2014 influenza virus vaccine, unspecified formulation Venessa Riggins RN [facility] [place] 08-29-2013 zoster vaccine, live Venessa Kassi terrell RN [facility] 08-09-2013 influenza virus vaccine, unspecified formulation Venessa Riggins RN [facility] 07-31-2012 influenza virus vaccine, unspecified formulation Venessa Riggins RN [facility] Work Phone: 03-07-2012 tetanus and diphther ia toxoids, adsorbed, preservative free, for adult use (2 Lf of tetanus toxoid and 2 Lf of diphtheria toxoid) Venessa Riggins RN [facility] Work Phone: 08-07-2011 influenza virus vaccine, unspecified formulation Venessa Riggins RN [facility] Work Phone: NEGATED: Highlighted row has not occurred!08-28-2024 influenza virus vaccine, unspecified formulation Davie Vargas [facility] [place] Payers Date Payer Category Payer Private Health Insurance [id number] 2025 Private Health Insurance [id number] 2023 Medicare (Managed Care) [employer] [id number] 2023 Unknown [employer] D [facility] [employer] [id number] 2023-Present [address] [place] [address] [id number]. 7.3.208974.315 2023 Unknown [id number] 2.16.840.1.024425.19 2023 Medicare [id number] 2.16.840.1.159446.19 2023 Self-pay 2023 Medicare [id number]. 1.13.159.2. 7.3.295172.315 1942 Unknown [id number] 2.16.840.1.219769.3.579.2. 72 1942 Unknown [id number] 2.16.840.1.420530.3.579.2. 1942 Unknown [id number] 2.16.840.1.112089.3.579.2. 1942 Unknown [id number] 2.16.840.1.684017.3.579.2. 1942 Unknown [id number] 2.16.840.1.231984.3.579.2 1942 Unknown [id number] 2.16.840.1.208921.3.579.2 1942 Unknown [id number] 2.16.840.1.199235.3.579.2. 1942 Unknown [id number] 2.16.840.1.492643.3.579.2 1942 Unknown [id number] 2.16.840.1.721821.3.579.2. 1942 Unknown [id number] 2.16.840.1.055153.3.579.2 1942 Unknown [id number] 2.16.840.1.427773.3.579.2. 72 1942 Unknown [id number] 2.16.840.1.561488.3.579.2. 727 1942 Unknown [id number] 2.16.840.1.095499.3.579.2. 72 1942 Unknown [id number] 2.16.840.1.539431.3.579.2. 72 1942 Unknown [id number] 2.16.840.1.733836.3.579.2. 196 1942 Unknown [id number] 2.16.840.1.570308.3.579.2. 72 1942 Unknown [id number] 2.16.840.1.351130.3.579.2. 1942 Unknown [id number] 2.16.840.1.311205.3.579.2. 1942 Unknown [id number] 2.16.840.1.705153.3.579.2. 1942 Unknown [id number] 2.16.840.1.818149.3.579.2. 1258 1942 Unknown [id number] 2.16.840.1.787858.3.579.2. 1258 1942 Unknown [id number] 2.16.840.1.718068.3.579.2. 1258 1942 Unknown [id number] 2.16.840.1.823031.3.579.2. 1258 1942 Unknown [id number] 2.16.840.1.497627.3.579.2. 1258 1942 Unknown [id number] 2.16.840.1.530480.3.579.2. 1258 1942 Unknown [id number] 2.16.840.1.555740.3.579.2. 1258 1942 Unknown [id number] 2.16.840.1.302769.3.579.2. 1258 1942 Unknown [id number] 2.16.840.1.696381.3.579.2. 1259 1942 Unknown [id number] 2.16.840.1.276292.3.579.2. 1942 Unknown [id number] 2.16.840.1.688304.3.579.2. 1942 Unknown [id number] 2.16.840.1.104172.3.579.2. 1942 Unknown [id number] 2.16.840.1.495507.3.579.2. 1942 Unknown [id number] 2.16.840.1.027444.3.579.2 1942 Unknown [id number] 2.16.840.1.115453.3.579.2 1942 Unknown [id number] 2.16.840.1.677892.3.579.2 1942 Unknown [id number] 2.16.840.1.455515.3.579.2 1942 Unknown [id number] 2.16.840.1.878429.3.579.2. 1942 Unknown [id number] 2.16.840.1.323454.3.579.2 1942 Unknown [id number] 2.16.840.1.325299.3.579.2. 1942 Unknown [id number] 2.16.840.1.316446.3.579.2. 1942 Unknown [id number] 2.16.840.1.987784.3.579.2. 1942 Unknown [id number] 2.16.840.1.748988.3.579.2. 1942 Unknown [id number] 2.16.840.1.764640.3.579.2. 727 1942 Unknown [id number] 2.16.840.1.193138.3.579.2. 1942 Unknown [id number] 2.16.840.1.098552.3.579.2. 1942 Unknown [id number] 2.16.840.1.959342.3.579.2. 1942 Unknown [id number] 2.16.840.1.680597.3.579.2. 1942 Unknown [id number] 2.16.840.1.330292.3.579.2 1942 Unknown [id number] 2.16.840.1.614429.3.579.2 1942 Unknown [id number] 2.16.840.1.010236.3.579.2 1942 Unknown [id number] 2.16.840.1.954513.3.579.2. 1942 Unknown [id number] 2.16.840.1.558776.3.579.2 1942 Unknown [id number] 2.16.840.1.703537.3.579.2 1942 Unknown [id number] 2.16.840.1.547075.3.579.2 1942 Unknown [id number] 2.16.840.1.159281.3.579.2. 1942 Unknown [id number] 2.16.840.1.258141.3.579.2 1942 Unknown [id number] 2.16.840.1.177771.3.579.2. 727 Medicare [id number] 2.16.840.1.572064.19 Unknown [id number] 2.16.840.1.922004.3.579.2. 531 Unknown [id number] 2.16.840.1.413726.3.579.2. 531 Social History Date Type Detail Facility Start: 06-20-2024 End: 11-28-2024 Sex Assigned At [facility] Start: 12-01-2023 End: 05-09-2025 Tobacco smoking status NHIS Never smoked tobacco [facility] Comment on above: denies use. Start: 06-28-2022 Alcohol intake Current drinke r of alcohol (finding) [facility] Start: 06-28-2022 End: 11-28-2024 Alcohol intake [facility] Start: 1940 Sex Assigned At Not on file C [facility] Tobacco smoking status Never [facility] [place] Comment on above: denies use. Start: 02-15-2024 Tobacco use and exposure Smoke less tobacco non-user [facility] Sexual Orientation [facility] Sex Male (finding) [facility] Procedure Code Equipment Code Equipment Origin al Text Equipment Identifier Dates Test blood sugar(s) 2 times daily. Dx: non. Insulin: No dx 250.00 Start: 08-24-2013 Comment on above: Test blood sugar(s) 2 times daily. Dx: non. Insulin: No dx 250.00 Functional Status Date Assessment Result Facility 10-30-2024 Functional Status No [facility] 08-28-2024 Functional Status N/A [facility] [place] 06-11-2024 Functional Status N/A [facility] 05-30-2024 Functional Status No [facility] 04-20-2024 Functional Status N/A [facility] 03-06-2024 Functional Status No [facility] Clinical Notes 03-10-2010 to 05-20-2025 Jelani Chow NP - 11/28/2024 1:00 PM Soto Escamilla MD - 11/26/2024 10:30 AM EST Note Date & Type Note Facility 05-20-2025 Note Nurse Consultation N ote Reason for Visit patient came IO for lab draw Assessment/Plan 1. Hyperlipidemia (E78.5: Hyperlipidemia, unspecified) 2. Hypothyroid (E03.9: Hypothyroidism, unspecified) 3. 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) Medications atenolol 25 mg Tab, See Instructions, 1 refills Cialis 2.5 mg oral tablet, 2.5 mg= 1 tab(s), Oral, Daily, PRN CoQ10, See Instructions, PRN D3, See Instructions finasteride 5 mg Tab, 5 mg= 1 tab(s), Oral, Daily, 1 refills gabapentin 300 mg Cap, 300 mg= 1 cap(s), Oral, Daily, 1 refills glimepiride 2 mg Tab, 2 mg= 1 tab(s), Oral, Daily, 1 refills levothyroxine 25 mcg (0.025 mg) Tab, See Instructions meloxicam 7.5 mg Tab, 7.5 mg= 1 tab(s), Oral, Daily, 2 refills omeprazole 40 mg Cap-DR, 40 mg= 1 cap(s), Oral, Daily, 1 refills pravastatin 40 mg Tab, 40 mg= 1 tab(s), Oral, Daily, 3 refills Sodium Chloride 1 g oral tablet, See Instructions tamsulosin 0.4 mg Cap, 0.4 mg= 1 cap(s), Oral, Daily, 3 refills Turmeric 500 mg oral capsule, 500 mg= 1 cap(s), Oral, Daily, PRN Vitamin B12, 50 mcg, Oral, Daily, PRN warfarin 5 mg Tab, 5 mg= 1 tab(s), Oral, Daily Allergies No Known Medication Allergies Immunizations Vaccine Date Status Comments influenza virus vaccine, inactivated 09/29/2024 Recorded influenza virus vaccine, inactivated - Not Given Patient Refuses pneumococcal 20-valent conjugate vaccine 09/21/2023 Recorded influenza virus vaccine, inactivated 08/19/2023 Recorded pneumococcal 13-valent vaccine 03/31/2015 Recorded influenza virus vaccine, inactivated 08/02/2014 Recorded [facility] 05-09-2025 Note Patient Education Cardiovascular Atrial Fibrillation Atrial fibrillation (AFib) is a type of heartbeat that is irregular or fast. If you have AFib, your heart beats without any order. This makes it hard for your heart to pump blood in a normal way. AFib may come and go, or it may become a long-lasting problem. If AFib is not treated, it can put you at higher risk for stroke, heart failure, and other heart problems. What are the causes? AFib may be caused by diseases that damage the heart's electrical system. They include: ??? High blood pressure. ??? Heart failure. ??? Heart valve diseases. ??? Heart surgery. ??? Diabetes. ??? Thyroid disease. ??? Kidney disease. ??? Lung diseases, such as pneumonia or COPD. ??? Sleep apnea. Sometimes the cause is not known. What increases the risk? You are more likely to develop AFib if: ??? You are older. ??? You exercise often and very hard. ??? You have a family history of AFib. ??? You are male. ??? You are . ??? You are overweight. ??? You smoke. ??? You drink a lot of alcohol. What are the signs or symptoms? Common symptoms of this condition include: ??? A feeling that your heart is beating very fast. ??? Chest pain or discomfort. ??? Feeling short of breath. ??? Suddenly feeling light-headed or weak. ??? Getting tired easily during activity. ??? Fainting. ??? Sweating. In some cases, there are no symptoms. How is this treated? Medicines to: ? Prevent blood clots. ? Treat heart rate or heart rhythm problems. ??? Using devices, such as a pacemaker, to correct heart rhythm problems. ??? Doing surgery to remove the part of the heart that sends bad signals. ??? Closing an area where clots can form in the heart (left atrial appendage). In some cases, your doctor will treat other underlying conditions. Follow these instructions at home: Medicines ??? Take [id number] and prescription medicines only as told by your doctor. ??? Do not take any new medicines without first talking to your doctor. ??? If you are taking blood thinners: ? Talk with your doctor before taking aspirin or NSAIDs, such as ibuprofen. ? Take your medicines as told. Take them at the same time each day. ? Do not do things that could hurt or bruise you. Be careful to avoid falls. ? Wear an alert bracelet or carry a card that says you take blood thinners. Lifestyle ??? Do not smoke or use any products that contain nicotine or tobacco. If you need help quitting, ask your doctor. ??? Eat heart-healthy foods. Talk with your doctor about the right eating plan for you. ??? Exercise regularly as told by your doctor. ??? Do not drink alcohol. ??? Lose weight if you are overweight. General instructions ??? If you have sleep apnea, treat it as told by your doctor. ??? Do not use diet pills unless your doctor says they are safe for you. Diet pills may make heart problems worse. ??? Keep all follow-up visits. Your doctor will check your heart rate and rhythm regularly. Contact a doctor if: ??? You notice a change in the speed, rhythm, or strength of your heartbeat. ??? You are taking a blood-thinning medicine and you get more bruising. ??? You get tired more easily when you move or exercise. ??? You have a sudden change in weight. Get help right away if: ??? You have pain in your chest. ??? You have trouble breathing. ??? You have side effects of blood thinners, such as blood in your vomit, poop (stool), or pee (urine), or bleeding that cannot stop. ??? You have any signs of a stroke. BE FAST is an easy way to remember the main warning signs: ? B - Balance. Dizziness, sudden trouble walking, or loss of balance. ? E - Eyes. Trouble seeing or a change in how you see. ? F - Face. Sudden weakness or loss of feeling in the face. The face or eyelid may droop on one side. ? A - Arms.Weakness or loss of feeling in an arm. This happens suddenly and usually on one side of the body. ? S - Speech. Sudden trouble speaking, slurred speech, or trouble understanding what people say. ? T - Time.Time to call emergency services. Write down what time symptoms started. ??? You have other signs of a stroke, such as: ? A sudden, very bad headache with no known cause. ? Feeling like you may vomit (nausea). ? Vomiting. ? A seizure. These symptoms may be an emergency. Get help right away. Call 911. ??? Do not wait to see if the symptoms will go away. ??? Do not drive yourself to the hospital. This information is not intended to replace advice given to you by your health care provider. Make sure you discuss any questions you have with your health care provider. Document Revised: 07/20/2023 Document Reviewed: 07/20/2023 [employer] Patient Education ? 2023 [employer]. Caregiving Fall Prevention in the Home, Adult Falls can cause injuries and can happen to people of all ag (more content not included)... [facility] 12-31-2024 Note Nurse Consultation N [place] Reason for Visit Pt presents today for lab draw. Medications atenolol 25 mg Tab, See Instructions, [...] mg Tab, 7.5 mg= 1 tab(s), Oral, Daily, 2 refills omeprazole 40 mg Cap-DR, 40 mg= [...] Recorded influenza virus vaccine, inactivated 08/02/2014 Recorded [facility] 12-24-2024 Note Patient Education Cardiovascular Atrial Fibrillation Atrial fibrillation (AFib) is a type of irregular or rapid heartbeat (arrhythmia). In AFib, the top part of the heart (atria) beats in an irregular pattern. This makes the heart unable to pump blood normally and effectively. The goal of treatment is to prevent blood clots from forming, control your heart rate, or restore your heartbeat to a normal rhythm. If this condition is not treated, it can cause serious problems, such as a weakened heart muscle (cardiomyopathy) or a stroke. What are the causes? This condition is often caused by medical conditions that damage the heart's electrical system. These include: ??? High blood pressure (hypertension). This is the most common cause. ??? Certain heart problems or conditions, such as heart failure, coronary artery disease, heart valve problems, or heart surgery. ??? Diabetes. ??? Overactive thyroid (hyperthyroidism). ??? Chronic kidney disease. ??? Certain lung conditions, such as emphysema, pneumonia, or COPD. ??? Obstructive sleep apnea. In some cases, the cause of this condition is not known. What increases the risk? This condition is more likely to develop in: ??? Older adults. ??? Athletes who do endurance exercise. ??? People who have a family history of AFib. ??? Males. ??? People who are . ??? People who are obese. ??? People who smoke or misuse alcohol. What are the signs or symptoms? Symptoms of this condition include: ??? Fast or irregular heartbeats (palpitations). ??? Discomfort or pain in your chest. ??? Shortness of breath. ??? Sudden light-headedness or weakness. ??? Tiring easily during exercise or activity. ??? Syncope (fainting). ??? Sweating. In some cases, there are no symptoms. How is this diagnosed? Your health care provider may detect AFib when taking your pulse. If detected, this condition may be diagnosed with: ??? An electrocardiogram (ECG) to check electrical signals of the heart. ??? An ambulatory bus monitor to record your heart's activity for a few days. ??? A transthoracic echocardiogram (TTE) to create pictures of your heart. ??? A transesophageal echocardiogram (JEREMIAH) to create even clearer pictures of your heart. ??? A stress test to check your blood supply while you exercise. ??? Imaging tests, such as a CT scan or chest X-ray. ??? Blood tests. How is this treated? Treatment depends on underlying conditions and how you feel when you get AFib. This condition may be treated with: ??? Medicines to prevent blood clots or to treat heart rate or heart rhythm problems. ??? Electrical cardioversion to reset the heart's rhythm. ??? A pacemaker to correct abnormal heart rhythm. ??? Ablation to remove the heart tissue that sends abnormal signals. ??? Left atrial appendage closure to seal the area where blood clots can form. In some cases, underlying conditions will be treated. Follow these instructions at home: Medicines ??? Take over-the counter and prescription medicines only as told by your provider. ??? Do not take any new medicines without talking to your provider. ??? If you are taking blood thinners: ? Talk with your provider before taking aspirin or NSAIDs. These medicines can raise your risk of bleeding. ? Take your medicines as told. Take them at the same time each day. ? Do not do things that could hurt or bruise you. Be careful to avoid falls. ? Wear an alert bracelet or carry a card that says that you take blood thinners. Lifestyle ??? Do not use any products that contain nicotine or tobacco. These products include cigarettes, chewing tobacco, and vaping devices, such as e-cigarettes. If you need help quitting, ask your provider. ??? Eat heart-healthy foods. Talk with a food expert (dietitian) to make an eating plan that is right for you. ??? Exercise regularly as told by your provider. ??? Do not drink alcohol. ??? Lose weight if you are overweight. General instructions ??? If you have obstructive sleep apnea, manage your condition as told by your provider. ??? Do not use diet pills unless your provider approves. Diet pills can make heart problems worse. ??? Keep all follow-up visits. Your provider will want to check your heart rate and rhythm regularly. Contact a health care provider if: ??? You notice a change in the rate, rhythm, or strength of your heartbeat. ??? You are taking a blood thinner and you notice more bruising. ??? You tire more easily when you exercise or do heavy work. ??? You have a sudden change in weight. Get help right away if: ??? You have chest pain. ??? You have trouble breathing. ??? You have side effects of blood thinners, such as blood in your vomit, poop (stool), or pee (urine), or bleeding that does not stop. ??? You have any symptoms of a stroke. BE FAST is an easy way to remember the main warning s (more content not included)... [facility] 11-28-2024 History of Present illness Narrative Images from the original note were not included. HISTORY OF PRESENT ILLNESS: Dariel Zabala is an 84 y.o. @ male. 1ST PO LT CTR 11/19/24 (9 DAYS) [place] [facility] [place] PAIN DIFFUSE IN HAND/WRIST. KEEPS COVERED [...] develop for requiring urgent evaluation. Jelani Chow APRN-SOLUTION MANAGER documented in this encounter [facility] 11-26-2024 History of Present illness Narrative Images from the original note were not included. Subjective Patient ID: Dariel Zabala is a 84 y.o. male who presents for Ear Problem (Hearing aid battery in ear.) Pt seen in [facility] ED last Tuesday and DARNELL battery noted in RT EAC No family history on file. Active Ambulatory Problems Diagnosis Date Noted ASCVD (arteriosclerotic cardiovascular disease) (CMS/HCC) 11/26/2024 Atrial fibrillation (CMS/HCC) 08/22/2014 Back spasm [...] NECK SURGERY TRIGGER FINGER RELEASE Right 03/26/2024 [facility] [place] No Known Allergies Current Outpatient Medications [...] NOSTRIL ONCE DAILY AT BEDTIME [DISCONTINUED] HYDROcodone-acetaminophen (Perdido) 5-325 MG tablet [DISCONTINUED] tiZANidine (Zanaflex) 4 [...] indicated pt may have some dementia. Dr Medina notified. documented in this encounter [facility] 11-19-2024 Note Progress Note-Physic carlos Patient: DARIEL ZABALA Age: 84 years Sex: Male : 1940 Associated Diagnoses: None Author: Chau Lou MD Postoperative Information Postoperative disposition: Postoperative disposition: To PACU. Optimetrix number: Optimetrix number [id number]. Anesthetic utilized: General. Health Status Allergies: Allergic [...] when meets criteria ( To home ). [facility] Comment on above: Result Comment: Elec tronically Signed By: Chau Lou MD\.br\Date and Time Signed: 11/19/24 15:19 EST 11-19-2024 Evaluation + Plan note Extrac bijal from: Title:ANES Post-operative Note---General Author: Chau Lou MD Date:11/19/24 Plan Transfer/Discharge: Transfer/Discharge Discharge when meets criteria ( To home ). Extracted from: Title:ANES Pre-operative Note 2022 Author:Chau Goode Date:11/19/24 Plan [employer]esthesi[employer] (ASA) physical status classification: Class III. Anesthetic Preoperative Plan: Anesthesia General. Future Appointments Appointment Date:12/12/2024 10:15:00 AM Scheduled Provider:Dixon Dubose PA-C Location[facility] Appointment Type:Cardiology Follow Up (FT) Appointment Date:05/02/2025 08:00:00 AM Scheduled Provider: Location:[facility] Jackie Appointment Type: Medicare Wellness Subsequent Future Scheduled Tests Laboratory* Basic Metabolic Panel 11/13/24 [facility] 01-06-2025 NotePatient Education - Text [place], [place] [facility] CARPAL TUNNEL RELEASE INSTRUCTIONS [...] Patient Signature Axel Hernández, DO [facility] [address] [place] [address] Reviewed: 04-22[facility]01-06-2025 NoteProgress Note-Physician Patient: DARIEL ZABALA Age: 84 [...] daily, # 90 tab(s), Refills(s) 0, [id number] 178, cm, 06/11/24 12:53:00 EDT, Height/Length Dosing, 82, kg, 06/11/2412:56:00 EDT, Weight Dosing Sodium Chloride 1000 mg oral tablet, soluble: See Instructions, 30 tab(s), Refill(s) 0, Take one tablet daily, [id number], 178.6, cm, 11/01/24 9:21:00 EST, Height/Length Dosing, 81.3, kg, 11/01/24 9:21:00 EST, Weight Dosing Synthroid 25 mcg(0.025 mg) Tab: See Instructions, TAKE 1 TABLET DAILY ON AN EMPTY STOMACH, # 3 tab(s), Refills(s) 0, [id number], 178, cm, 08/07/24 10:59:00 EDT, Height/Length Dosing, 78.2, kg, 08/07/24 10:59:00 EDT, Weight Dosing atenolol 25 mg Tab: See Instructions, take 1/2 tab daily, # 90 tab(s), Refills(s) 1, Pharmacy: [facility], 178, cm, 09/10/24 13:01:00 EDT, Height/Length Dosing, 80.1, kg, 09/10/24 13:01:00 EDT, Weight Dosing finasteride 5 mg Tab: 5 mg = 1 tab(s), Oral, Daily, # 90 tab(s), Refills(s) 1, [id number], 178.6, cm, 11/01/24 9:21:00 EST, Height/Length Dosing, 81.3, kg, 11/01/24 9:21:00 EST, Weight Dosing fluticasone Nasal 0.05 mg/inh Tulsita: See Instructions, 48 mL, Refill(s) 1, USE 1 SPRAY IN EACH NOSTRIL TWICE A DAY, [id number], 178, cm, 08/28/24 14:50:00 EDT, Height/Length Dosing, 82.2, kg, 08/28/24 14:50:00 EDT, Weight Dosing gabapentin 300 mg Cap: 300 mg = 1 cap(s), Oral, Daily, # 90 cap(s), Refills(s) 1, Pharmacy: [facility], 178, cm, 07/03/24 10:05:00 EDT, Height/Length Dosing, 80.8, kg, 07/03/2410:05:00 EDT, Weight Dosing glimepiride 2 mg Tab: See Instructions, TAKE 1 TABLET DAILY, # 3 tab(s), Refills(s) 0, Pharmacy: [facility], 178, cm, 08/07/24 10:59:00 EDT, Height/Length Dosing, 78.2, kg, 08/07/24 10:59:00 EDT, Weight Dosing omeprazole 40 mg Cap-DR: 40 mg = 1 cap(s), Oral, Daily, # 90 cap(s), Refills(s) 1, Pharmacy: [facility], 178, cm, 08/28/24 14:50:00 EDT, Height/Length Dosing, 82.2, kg, 08/28/24 14:50:00 EDT, Weight Dosing pravastatin 40 mg Tab: 40 mg = 1 tab(s), Oral, Daily, # 90 tab(s), Refills(s) 3, Pharmacy: [facility], 178, cm, 09/10/24 13:01:00 EDT, Height/Length Dosing, 80.1, kg, 09/10/24 13:01:00 EDT, Weight Dosing sildenafil 100 mg Tab: 100 mg = 1 tab(s), Oral, Daily, PRN for erectile dysfunction, 1 hour before sexual activity, # 5 tab(s), Refills(s) 0, Pharmacy: [facility], 178, cm, 07/03/24 10:05:00 EDT, Height/Length Dosing, 80.8, kg, 07/03/24 10:05:00 EDT,... tamsulosin 0.4 mg Cap: 0.4 mg = 1 cap(s), Oral, Daily, # 90 cap(s), Refills(s) 1, Pharmacy: [facility], 178, cm, 09/10/24 13:01:00 EDT, Height/Length Dosing, 80.1, kg, 09/10/2413:01:00 EDT, Weight Dosing Documented Medications Documented CoQ10: See Instructions, PRN Prophylaxis, Refills(s) 0 D3: See Instructions, Oral Daily- patient states he takes 500 once a day, Refills(s) 0 Jantoven 5 mg oral tablet: 5 mg = 1 tab(s), Oral, Daily, Refills(s) 0, Blood Thinner (more content not included)...[facility] RehabilitationComment on above:Result Comment: Electronically Signed By: Carmine COHN, Chau Pineda\.br\Date and Time Signed: 11/19/24 11:51 [id number] Hospital Discharge instructions Patient Education 11/12/2024 12:08:21 Hernández - Carpal Tunnel Release Instructions (Custom) (CUSTOM) [place], [place] [facility] CARPAL TUNNEL RELEASE INSTRUCTIONS [...] resolve. Patient SignatureMiclolis Hernández DO [facility] [address] [place] [id number] Reviewed: 04-2211/19/2024 13:10:26 Post Op Patient Instructions - FT (Custom) (CUSTOM) Follow Up Care 10/03/2024 14:28:43 With:GORDO Weller Address: [address] [place] [id number]- Business (1) When:11/28/2024 13:00:00 Comments:Keep scheduled appointment. Call for any problems. [facility] 12-30-2024 NotePatient Education - Text [place], [place] [facility] CARPAL TUNNEL RELEASE INSTRUCTIONS [...] Patient Signature Axel Hernández, DO [facility] [address] [place] [address] Reviewed: 04-22[facility]12-30-2024 NoteNurse Consultation Note Reason for Visit Pt [...] Daily, 1 refills fluticasone Nasal 0.05 mg/inh Tulsita, See Instructions, Self Directed gabapentin 300 mg [...] 03/31/2015 Recorded influenza virus vaccine, inactivated 08/02/2014 [facility] History of Present illness Narrative* Shala Farrell MD - 09/28/2024 9:30 AM EST [facility] Patient: Dariel Zabala [address], [address] , Sex: 1940, Male [place] [address] Height: 180 cm Ref Phys: Henrández fax Electroneuromyogram (ENMG) Test Date: 2024-09-28 Patient [...] Doub=doublet; Fasc=fasciculation; FFE=full for effort; Fib=fibrillation; Myokym=myokymia; [place]=myotonic potential; N,0=normal; NR=no response; Polyph=polyphasia; Pos=positive [sharp] [...] available for comparison. Shala Farrell M.D. Diplomate, [place] [employer]iat[employer] and Neurology (neurology, epilepsy, sleep medicine) Diplomate, [place] Board of Clinical Neurophysiology Diplomate, [place] Board of Preventive Medicine (clinical informatics) . documented in this [facility]10-07-2024 Telephone encounter Note* Telephone Encounter - Miguel Valentinkehinde - 08/20/2024 10:50 AM EDT LVM to RC in regard to BUE referral from Dr. Hernández--Approved to schedule-- co-pay will be applied to toward OOP. [facility] [id number] Miscellaneous Notes* Telephone Encounter - Miguel Moe - 08/20/2024 10:50 AM EDT LVM to RC in regard to BUE referral from Dr. Hernández--Approved to schedule--2500 co-pay will be applied to toward OOP. documented in this [facility]06-18-2024 NoteEchocardiology Procedure Exam Date/Time Accession # Ordering Echo Transthoracic 05/01/2024 15:00 EDT [id number] Kashif Barnett MD Complete CPT code 12101 50506 Reason for Exam (Echo Transthoracic Complete) AFIB, Syncope R55;Other (please specify) Report Version: 1 Study ID: [id number] [id number] Adult Echocardiogram Report Name: DARIEL ZABALA Study Date: 05/01/2024, 2: 02 PM Patient Location: [facility] : 1940 (MM/DD/YYYY) Gender: Male Age: 84 [...] Signed by: Jason Vaughn MD Transcribed by: [facility] Technologist: [facility]05-13-2024 Hospital Discharge instructions Patient [...] condition: Doing activities that require a strong financial adviser. Having rheumatoid arthritis, gout, or diabetes. Being [...] splint on your hand. General instructions Take dffx-khp-dvfnhis and prescription medicines only as told by [...] provider. Document Revised: 03/17/2020 Document Reviewed: 03/17/2020 [employer] Patient Education 2022 [employer]. Follow Up Care 03/01/2024 15:40:29 With:GORDO Weller Address: [address] [place] [address] Business (1) When:04/04/2024 10:15:00 Comments:Keep scheduled appointment [facility]05-07-2024 Note [id number] 11-[facility]2023 Evaluation note* Encounter Date [...] sodium level at upcoming appt in January [employer] Other 12-20-2023 Evaluation note* Encounter Date Diagnosis [...] further dizziness symptoms would recommend f/u with housekeeping coordinator as well. [employer] Other 11-17-2023 Evaluation note* Encounter Date Diagnosis Assessment Notes Treatment Notes Treatment Clinical Notes Sep, Type 2 diabetes mellitus (ICD-10 - E11.9) [employer] Other 11-17-2023 Miscellaneous Notes* Telephone Encounter - Venessa Riggins RN - 09/30/2023 12:29 PM EST Called patient back and reviewed plan from his call with Nurse Bundles Hanger at 11:36 AM. See my note Patient [...] have any questions, you can call Nurse vice president of instruction back. * Telephone Encounter - Venessa Riggins RN - 09/30/2023 11:36 AM EST Patient calling with request for physician referral: Patient referred to nephrology and primary care Department. Patient denies any new or worsening symptoms of which a provider is not aware: Yes. Patient was discharged from [facility] on 08/26 for low sodium and [...] appt center and then call dropped. My [employer] lost connection. NOC closing was given GO TO THE EMERGENCY ROOM OR CALL 911 IF: * You develop any new symptoms * Your condition worsens * You are concerned or anxious about your condition for any other reason. If you have any questions, you can call Nurse vice president of instruction back. [facility]* Encounter Date Diagnosis Assessment Notes Treatment Notes Treatment Clinical Notes Sep, Hyponatremia (ICD-10 - E87.1) Recent sodium 136 at low end of normal, given significance of symptoms and recommendation of hospital for f/u will refer to nephrology patient requesting [place] Sep, Anticoagulant long-term use (ICD-10 - Z79.01) Follows with INR clinic through [facility]. Sep, Atrial fibrillation (ICD-10 - I48.91) Appears in NSR today, anticoagulated on Warfarin Sep, Hypothyroidism (ICD-10 - E03.9) Recent TFTs in normal range, clinically euthyroid, continue current dose of LT4 Sep, Type 2 diabetes mellitus (ICD-10 - E11.9) Recent a1c in good range at 5.6%, continue current dose of glimepiride. Sep, Immunization due (ICD-10 - Z23) [employer] Other 10-16-2023 Evaluation note* Encounter Date Diagnosis Assessment Notes Treatment Notes Treatment Clinical Notes Aug, Hyponatremia (ICD-10 - E87.1) [employer] Other 08-03-2023 Evaluation note* Encounter Date Diagnosis Assessment Notes Treatment Notes Treatment Clinical Notes Jun, Atrial fibrillation (ICD-10 - I48.91) Rate controlled, mild bradycardia but asymptomatic. Will continue current dose of atenolol. He is anticoagulated on Coumadin with goal INR 2-3, he is due for INR check. Will refer to coumadin clinic through [facility] Jun, Anticoagulant long-term use (ICD-10 - Z79.01) Jun, Hearing loss (ICD-10 - H91.90) Referral to local marketing content coordinator Jun, Dermatitis (ICD-10 - L30.9) Can trial topical steroid PRN, discussed may be secondary to dry skin. Recommend daily use of lotion Jun, Hypothyroidism (ICD-10 - E03.9) Due for TFTs prior to next visit Jun, Type 2 diabetes mellitus (ICD-10 - E11.9) Due for a1c prior to next visit Jun, BPH (benign prostatic hyperplasia) (ICD-10 - N40.0) [employer] Other 08-03-2023 Reason for referral (narrative)* Reason Medication managemen t through [facility] - Coumadin management with INR goal 2-3 Diagnosis 1 Anticoagulant long-t erm use (Z79.01) Referral Organization [facility] Family Rodo John Referring Provider First Name Jada Referring Provider Last Name Edgard Referring Provider Specialty [facility] Referred Organization [facility] Referred Address [address], [place],[address] Referred Provider Specialty Milvia s Referral Priority Routine General Notes Gabrielle Reid 01/2023 01:34:29 PM >this is an order not a referral, clinical informed and will fax order over for standing order INR to [facility] Reason * FU 06/29 CALL he aring loss, issue with hearing aids Diagnosis 1 Hearing loss (H91.90 ) Referral Organization [facility] Family Rodo John Referring Provider First Name Jada Referring Provider Last Name Edgard Referring Provider Specialty Family [facility] Organization [facility] Referred Address ,[place],[address] Referred Provider Specialty Audiologists Referral Priority Routine General Notes Jeanette Gabrielle L 01/2023 01:28:34 PM >referral received and faxed [employer] Other 04-27-2010 History of Past illness Narrative* Problem Noted Date Diagnosed Date Resolved Date Myalgia 03/10/2010 03/01/2011 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 and other lower urinary tract symptoms (LUTS) 08/11/2006 01/11/2013 Elevated prostate specific antigen (PSA) 03/07/2012 documented as of this encounter (statuses as of 09/30/2023) [facility] No data available for this section [facility] Future Appointments Appointment Date:03/08/2024 01:00:00 PM Scheduled Provider:Kylah Medina [facility]: Open Appointment Date:03/26/2024 01:45:00 PM Scheduled Provider: Location:[facility] Appointment Type:Surgery FT Appointment Date:05/01/2024 09:00:00 AM Scheduled Provider: [facility]: Lab Draw Appointment Date:05/03/2024 08:00:00 AM Scheduled Provider: Location:[facility] Appointment Type:FM Medicare Wellness Subsequent Appointment Date:05/03/2024 09:00:00 AM Scheduled Provider:Kylah Medina MD [facility] Type: Open Future Scheduled Tests Laboratory* PSA Screen, Total 02/02/24 * CBC w/ Auto Diff 02/02/24 * Comprehensive Metabolic Panel 02/02/24 * Lipid Panel 02/02/24 [facility] Future Appointments Appointment Date:05/01/2024 09:00:00 AM Scheduled Provider: [facility] Type:FM Lab Draw Appointment Date:05/03/2024 08:00:00 AM Scheduled Provider: [facility] Type: Medicare Wellness Subsequent Appointment Date:05/03/2024 09:00:00 AM Scheduled Provider:Kylah Medina MD Location:[facility] Appointment Type: Open Future Scheduled Tests Laboratory* PSA Screen, Total 02/02/24 * CBC w/ Auto Diff 02/02/24 * Comprehensive Metabolic Panel 02/02/24 * Lipid Panel 02/02/24 [facility] Future Appointments Appointment Date:05/01/2024 09:00:00 AM Scheduled Provider: Location:[facility] Appointment Type: Lab Draw Appointment Date:05/03/2024 08:00:00 AM Scheduled Provider: Location:[facility] Appointment Type: Medicare Wellness Subsequent Appointment Date:05/03/2024 09:00:00 AM Scheduled Provider:Kylah Medina MD Location:[facility] Appointment Type: Open Appointment Date:05/25/2024 01:00:00 PM Scheduled Provider:Kashif Barnett MD [facility] Type:Cardiology Follow Up (FT) Future Scheduled Tests Laboratory* PSA Screen, Total 02/02/24 * CBC w/ Auto Diff 02/02/24 * Comprehensive Metabolic Panel 02/02/24 * Lipid Panel 02/02/24 Radiology* Echo Transthoracic Complete 04/20/24 [facility] Future Appointments Appointment Date:05/03/2024 08:00:00 AM Scheduled Provider: Location:[facility] Appointment Type: Medicare Wellness Subsequent Appointment Date:05/03/2024 09:00:00 AM Scheduled Provider:Kylah Medina MD Location:[facility] Appointment Type: Open Appointment Date:05/21/2024 10:00:00 AM Scheduled Provider: [facility] Type:CV Holter/Event (FT) Appointment Date:05/25/2024 01:00:00 PM Scheduled Provider:Kashif Barnett MD [facility] Type:Cardiology Follow Up (FT) [facility] Future Appointments Appointment Date:05/30/2024 03:45:00 PM Scheduled Provider:Kashif Barnett MD [facility] Type:Cardiology Follow Up (FT) Appointment Date:11/01/2024 09:15:00 AM Scheduled Provider:Kylah Medina MD Location:[facility] Appointment Type: Open Appointment Date:05/02/2025 08:00:00 AM Scheduled Provider: Location:[facility] Appointment Type:FM Medicare Wellness [facility] Future Appointments Appointment Date:08/31/2024 01:00:00 PM Scheduled Provider:Kashif Barnett MD [facility] App[facility] Type:Cardiology Follow Up (FT) Appointment Date:11/01/2024 09:15:00 AM Scheduled Provider:Kylah Medina MD Location:[facility] Appointment Type: Open Appointment Date:05/02/2025 08:00:00 AM Scheduled Provider: Location:[facility] Appointment Type:FM Medicare Wellness Subsequent [facility] Future App[facility]ments Appointment Date:11/01/2024 09:15:00 AM Scheduled Provider:Kylah Medina MD Location:[facility] Appointment Type:FM Open Appointment Date:12/11/2024 01:00:00 PM Scheduled Provider:Dixon Dubose PA-C [facility] Type:Cardiology Follow Up (FT) Appointment Date:05/02/2025 08:00:00 AM Scheduled Provider: Location:[facility] Appointment Type:FM Medicare Wellness Subsequent [facility] Evaluation + Plan note Future Appointments Appointment Date:11/01/2024 09:15:00 AM Scheduled Provider:Kylah Medina MD Location:[facility] Appointment Type:FM Open Appointment Date:11/19/2024 02:15:00 PM Scheduled Provider: Location:[facility] Appointment Type:Surgery FT Appointment Date:12/12/2024 10:15:00 AM Scheduled Provider:Dixon Dubose PA-C [facility] Type:Cardiology Follow Up (FT) Appointment Date:05/02/2025 08:00:00 AM Scheduled Provider: Location:[facility] Appointment Type:FM Medicare Wellness Subsequent [facility] evaluation + Plan note Future Appointments Appointment Date:11/19/2024 02:15:00 PM Scheduled Provider: Location:[facility] Appointment Type:Surgery FT Appointment Date:12/12/2024 10:15:00 AM Scheduled Provider:Dixon Dubose PA-C [facility] Type:Cardiology Follow Up (FT) Appointment Date:05/02/2025 08:00:00 AM Scheduled Provider: Location:[facility] Appointment Type: Medicare Wellness Subsequent [facility] evaluation + Plan note Future Appointments Appointment Date:12/24/2024 01:15:00 PM Scheduled Provider:Kylah Medina MD Location:[facility] Appointment Type: Open Appointment Date:05/02/2025 08:00:00 AM Scheduled Provider: Location:[facility] Appointment Type:FM Medicare Wellness Subsequent Diagnostic Tests Pending * Basic Metabolic Panel 12/17/24 Future Scheduled Tests Laboratory* Basic Metabolic Panel 11/13/24 [facility] evaluation + Plan note Future Appointments Appointment Date:01/22/2025 10:15:00 AM Scheduled Provider:Kylah Medina MD Location:[facility] Appointment Type: Open Appointment Date:05/02/2025 08:00:00 AM Scheduled Provider: Location:[facility] Appointment Type: Medicare Wellness Subsequent Future Scheduled Tests Laboratory* Basic Metabolic Panel 11/13/24 [facility] evaluation + Plan note Future Appointments Appointment Date:02/05/2025 01:30:00 PM Scheduled Provider:Kylah Medina MD Location:[facility] Appointment Type: Open Appointment Date:05/02/2025 08:00:00 AM Scheduled Provider: Location:[facility] Appointment Type: Medicare Wellness Subsequent Future Scheduled Tests Laboratory* Basic Metabolic Panel 01/10/25 * Basic Metabolic Panel 11/13/24 [facility] evaluation + Plan note Future Appointments Appointment Date:05/02/2025 08:00:00 AM Scheduled Provider: Location:[facility] Appointment Type: Medicare Wellness Subsequent Future Scheduled Tests Laboratory* Basic Metabolic Panel 11/13/24 [facility] evaluation + Plan note Future Appointments Appointment Date:08/09/2025 10:40:00 AM Scheduled Provider:YANIQUE CHAMBERS CNP Location:[facility] Appointment Type: Open Appointment Date:05/13/2026 08:00:00 AM Scheduled Provider: Location:[facility] Appointment Type: Medicare Wellness Subsequent Future Scheduled Tests Laboratory* Basic Metabolic Panel 11/13/24 [facility] evaluation noteNo [employer] Other Evaluation note* Diagnosis Pain in both upper extremities- Primary Carpal tunnel syndrome, bilateral Carpal tunnel syndrome documented in this encounter [facility] HealthcareEvaluation note* Diagnosis Pre-op testing- Primary Unspecified pre-operative examination Right hand pain Pain in soft tissues of limb Arm weakness Other musculoskeletal symptoms referable to limbs documented in this encounter [facility] note* Diagnosis Foreign body of right ear, initial encounter- Primary documented in this encounter [facility] HealthcareEvaluation note* Diagnosis Status post carpal tunnel release- Primary Other postprocedural status documented in this encounter [facility] HealthcareHistory general Narrative - Reported* Type Description Date Medical History type 2 diabetes Medical History hypothyroid Medical History Afib Surgical History multiple neck sx Surgical History tonsillectomy Surgical History adenoidectomy Surgical History MAU cataract Hospitalization History see above [employer] Other History general Narrative - Reported* Type Description Date Medical History type 2 diabetes Medical History hypothyroid Medical History Afib Surgical History multiple neck sx Surgical History tonsillectomy Surgical History adenoidectomy Surgical History MAU cataract Hospitalization History see above Hospitalization History low [facility] [employer] Other Hisehwg general Narrative - Reported* Type Description Date [...] 2 DM, generalized weakness hypomagnesiema, RADHA 11/13/23-11/15/23 [employer] Other Hospital Discharge instructions No data available for this section [facility] No data available for this section [facility] Summary Purpose Family History No Family [...] Records FoundNo Advanced Directives Records FoundNo Advanced Directiv es Records FoundNo Advanced Directives Records FoundNo Advanced Directives Records FoundNo AdvancedDirectives Records FoundNo Advanced Directives Records Found Reason for Referral Reason * FU 09/28 follow up hospitalization for symptomatic hyponatremia, [facility] [place] Dr. Lara ph [phone], fax [phone] Diagnosis 1 Hyponatremia (E87.1) Referral Organization [facility] Family Medicin e Cole Referring Provider First Name Jada Referring Provider Last Name [facility] Referring Provider Specialty Family [facility] Referred Provider Romeo Lara [place] Address [address], [place],[address] Referred Provider Specialty Internal Med icine Referral Priority Routine General Notes Jeanette Gabrielle Krishan 06/2023 01:35:25 PM > referral received and faxed Clinical Notes [facility] [place] Dr. Lara ph [phone], fax [phone] Reason hyponatremia, recent hospitalization [facility] for [facility] Diagnosis 1 Hyponatremia (E87.1) Referral Organization [facility] Referring Provider First Name Jada Referring Provider Last Name [facility] Referring Provider Specialty [facility] Referred Organization [facility] Referred Address [address], [place],[phone] Referred Provider Specialty Nephrology Referral Priority Routine [...] and content) DATE CREATED AUTHOR 06/03/2020 [facility] DATE CREATED AUTHOR AUTHOR'S ORGANIZ ATION 11/10/[address] [facility] DATE CREATED AUTHOR AUTHOR'S ORGANIZ ATION 05/03/2024 [facility] DATE CREATED AUTHOR AUTHOR'S ORGANIZ ATION 07/01/2024 [facility] DATE CREATED AUTHOR AUTHOR'S ORGANIZ ATION 08/17/2024 [facility] DATE CREATED AUTHOR AUTHOR'S ORGANIZ ATION 11/02/2024 [facility] DATE CREATED AUTHOR AUTHOR'S ORGANIZ ATION 11/14/2024 [facility] DATE CREATED AUTHOR AUTHOR'S ORGANIZ ATION 11/24/2024 [facility] DATE CREATED AUTHOR AUTHOR'S ORGANIZ ATION 11/25/2024 [facility] DATE CREATED AUTHOR AUTHOR'S ORGANIZ ATION 11/29/2024 [facility] DATE CREATED AUTHOR AUTHOR'S ORGANIZ ATION 12/21/2024 [facility] DATE CREATED AUTHOR AUTHOR'S ORGANIZ ATION 01/02/2025 [facility] DATE CREATED AUTHOR AUTHOR'S ORGANIZ ATION 01/10/2025 [facility] DATE CREATED AUTHOR AUTHOR'S ORGANIZ ATION 01/11/2025 [facility] DATE CREATED AUTHOR AUTHOR'S ORGANIZ ATION 01/27/2025 [facility] DATE CREATED AUTHOR AUTHOR'S ORGANIZ ATION 02/06/2025 [facility] DATE CREATED AUTHOR AUTHOR'S ORGANIZ ATION 02/07/2025 [facility] DATE CREATED AUTHOR AUTHOR'S ORGANIZ ATION 02/22/2025 [facility] DATE CREATED AUTHOR AUTHOR'S ORGANIZ ATION 05/10/2025 [facility] DATE CREATED AUTHOR AUTHOR'S ORGANIZ ATION 05/23/2025 [facility] DATE CREATED AUTHOR AUTHOR'S ORGANIZ ATION 05/24/2025 [facility] DATE CREATED AUTHOR AUTHOR'S ORGANIZ ATION 06/01/2025 [facility] REASON FOR VISIT (unrecogniz ed [...] or prosecute any alcohol or drug abuse patient.[facility] Patient Care team informatio n (unrecognized section and content) [employer] Relationship Specialty Start Date End Date Kylah Medina MD PCP - General Family Medicine 02/03/24 [employer] Relationship Specialty Start Date End Date Kylah Medina MD PCP - General Family Medicine 02/03/24 [employer] Tool[employer]ter Relationship Specialty Start Date End Date Kylah Medina MD PCP - General Family Medicine 02/03/24 [employer] 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 Relationship Specialty Start Date End Date Kylah Medina MD PCP - General Family Medicine 02/03/24 Emb[employer]ing 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 Relationship Specialty Start Date End Date Kylah Medina MD [facility] 02/03/24 [employer]ing Toolsetter Relationship Specialty Start Date End Date Kylah Medina MD [address], [place] [id number] PCP - [facility] 11/26/24 [employer] Tool[employer]ter Relationship Specialty Start Date End Date Kylah Medina MD [address] [place] [address] PCP - [facility] 11/26/24 [employer]ing Tool[employer]ter Relationship Specialty Start Date End Date Kylah Medina MD [address], [place] [id number] PCP - [facility] 11/26/24 [employer]ing Toolsetter Relationship Specialty Start Date End Date Kylah Medina MD [address] [place] [address] [facility] 11/26/24 FOR RECORDS PERTAINING TO PATIENTS WHO [...] BE BASED ON THE PRIMARY CLINICAL RECORDS. [employer] [facility]. provides no warranty or guarantee of the accuracy or completeness of information in this document.
--- NOTE | 2025-06-01 18:07 | CT_ITS ---
The [address] [address] Patient Name: INDIANA ZABALA MRN: [id number] date: 1940 Sex: M Assigned Patient Location: ED.MAIN Current Patient Location: ED.MAIN Accession/Order Number: [id number] Exam Date: 06/01/2025 19:08 Report Date: 06/01/2025 19:10 At the request of: JESSI YAO MD Procedure: CT head/brain wo con CT BRAIN WITHOUT CONTRAST: CLINICAL HISTORY: fall COMPARISON: 12/14/2024 TECHNIQUE: Contiguous axial unenhanced images were obtained through the brain. This CT exam was performed using one or more following dose reduction techniques: Automated exposure control, adjustment of the mA and/or kV according to patient size, or use of iterative reconstruction technique. FINDINGS: There is no evidence of midline shift, intra or extra-axial fluid collection, hemorrhage or CT evidence of acute large vascular distribution stroke. Mild involutional and chronic small vessel ischemic disease. Visualized intraorbital contents appear unremarkable. [id number] ethmoid sinus mucosal thickening. The surrounding soft tissues are normal. CT/CT head/brain wo con IMPRESSION: NO ACUTE INTRACRANIAL ABNORMALITY. CHRONIC SMALL VESSEL AND CENTRAL INVOLUTIONAL CHANGES. Impression dictated by: Rajeev Anne M.D. 06/01/2025 7:10 PM Dictation Location: [place] [address] Electronically authenticated by: [id number] Y Date: 06/01/2025 19:10
--- NOTE | 2025-06-01 18:07 | CT_ITS ---
The [place] [id number] Patient Name: INDIANA ZABALA MRN: [id number] date: 1940 Sex: M Assigned Patient Location: ED.MAIN Current Patient Location: ED.MAIN Accession/Order Number: [id number] Exam Date: 06/01/2025 19:01 Report Date: 06/01/2025 19:08 At the request of: JESSI YAO MD Procedure: CT facial bones wo con MAXILLOFACIAL CT WITHOUT CONTRAST: CLINICAL HISTORY: fall COMPARISON: None TECHNIQUE: Spiral axial unenhanced images were obtained through the facial bones. Coronal and sagittal reconstructions were also reviewed. This CT exam was performed using one or more following dose reduction techniques: Automated exposure control, adjustment of the mA and/or kV according to patient size, or use of iterative reconstruction technique. FINDINGS: Bilateral nasal bone fractures, no significant displacement. Overlying soft tissue swelling. S type Deviation of nasal septum is difficult to evaluate for nasal septal fracture given the degree of curvature, suspected subtle lucency along the cranial aspect, along caudal aspect near the deviation, it is difficult to evaluate due to the redundancy/curvature. Otherwise, no additional bone fracture or bony destruction is identified. There is appropriate development and pneumatization of the paranasal sinuses. There is no mucosal thickening or fluid levels. The ostiomeatal complexes are patent. The intraorbital contents are unremarkable. CT/CT facial bones wo con IMPRESSION: BILATERAL NASAL BONE fractures with overlying/swelling. SUSPECTED NASAL SEPTAL FRACTURE Impression dictated by: Rajeev Anne M.D. 06/01/2025 7:08 PM Dictation Location: [place] [address] Electronically authenticated by: [id number] Y Date: 06/01/2025 19:08
--- NOTE | 2025-06-01 18:08 | ED.FALL1 ---
HPI HPI - Fall General Chief Complaint: Fall Stated Complaint: fall Time Seen by Provider: 06/01/25 18:01 Source: patient Mode of arrival: walk-in Limitations: no limitations History of Present Illness HPI Narrative: Patient was sleeping on out door recliner chair when he was tipped forward and fell on his face, he did not pass out and that he started bleeding right away from his nose, patient take Coumadin for A-fib, the patient denies any other injuries The patient also mentioned that although he is not sure he had his last tetanus booster within the last 2 years Related Data Home Medications ?Medication ?Instructions ?Recorded ?Confirmed glimepiride 2 mg tablet 2 mg PO DAILY 08/21/23 12/14/24 levothyroxine 25 mcg tablet 25 mcg PO QAM 08/21/23 12/14/24 pravastatin 40 mg tablet 40 mg PO DAILY 08/21/23 12/14/24 tamsulosin 0.4 mg capsule 0.4 mg PO DAILY 08/21/23 12/14/24 warfarin 5 mg tablet (Jantoven) 5 mg PO MOWEFR 08/21/23 12/14/24 warfarin 2.5 mg tablet (Jantoven) 2.5 mg PO .4 days a week 08/22/23 12/14/24 finasteride 5 mg tablet 5 mg PO DAILY 11/13/23 12/14/24 coenzyme Q10 100 mg capsule (Co 100 mg PO DAILY 08/13/24 12/14/24 Q-10) cyclobenzaprine 10 mg tablet 10 mg PO TID PRN muscle spasm 08/13/24 12/14/24 gabapentin 300 mg capsule 300 mg PO DAILY 08/13/24 12/14/24 vitamin B complex (B-Complex 1 tab PO DAILY 08/13/24 12/14/24 tablet) Previous Rx's ?Medication ?Instructions ?Recorded atenolol 25 mg tablet 25 mg PO BID #60 tabs 11/15/23 sodium chloride 1,000 mg soluble 1,000 mg PO TID #90 tabs 11/15/23 tablet Allergies Allergy/AdvReac Type Severity Reaction Status Date / Time No Known Drug Allergies Allergy Verified 06/01/25 17:53 Opioid HPI Opioid Management Most Recent Pain and Opioid Data: Last Pain Scale 0 12/15/24, 11:51 Last Pain Intensity 0 12/15/24, 11:51 Last ORT Total Score 0 12/14/24, 06:21 Last ORT Risk Category Low Risk 12/14/24, 06:21 Ur Phencyclidine Scrn, (NEGATIVE) Negative 08/21/23, 03:22 Review of Systems ROS Status of ROS 10 or more systems reviewed and unremarkable except as noted in history and below [facility] Medical History (Updated 12/18/24 @ 00:00 by ) Adult hypothyroidism ?E03.9 - Hypothyroidism, unspecified (ICD-10) Hyponatremia ?E87.1 - Hypo-osmolality and hyponatremia (ICD-10) Paroxysmal atrial fibrillation ?I48.0 - Paroxysmal atrial fibrillation (ICD-10) Type 2 diabetes mellitus with hyperglycemia ?E11.65 - Type 2 diabetes mellitus with hyperglycemia (ICD-10) Syncope ?R55 - Syncope and collapse (ICD-10) Abrasion of scalp ?S00.01XA - Abrasion of scalp, initial encounter (ICD-10) Closed head injury ?S09.90XA - Unspecified injury of head, initial encounter (ICD-10) Laceration of scalp ?S01.01XA - Laceration without foreign body of scalp, initial encounter (ICD-10) Low back pain ?M54.50 - Low back pain, unspecified (ICD-10) Lumbar spondylosis ?M47.816 - Spondylosis without myelopathy or radiculopathy, lumbar region (ICD-10) Thoracic back pain ?M54.6 - Pain in thoracic spine (ICD-10) 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 - Other specified mononeuropathies (ICD-10) Paresthesias in right hand ?R20.2 - Paresthesia of skin (ICD-10) Foreign body in right ear ?T16.1XXA - Foreign body in right ear, initial encounter (ICD-10) Hyponatremia ?E87.1 - Hypo-osmolality and hyponatremia (ICD-10) Hypomagnesemia ?E83.42 - Hypomagnesemia (ICD-10) RADHA (acute kidney injury) ?N17.9 - Acute kidney failure, unspecified (ICD-10) Influenza ?J11.1 - Influenza due to unidentified influenza virus with other respiratory manifestations (ICD-10) Hypomagnesemia ?E83.42 - Hypomagnesemia (ICD-10) Acute hyponatremia ?E87.1 - Hypo-osmolality and hyponatremia (ICD-10) Acute confusion ?R41.0 - Disorientation, unspecified (ICD-10) Diabetes ?E11.9 - Type 2 diabetes mellitus without complications (ICD-10) High cholesterol ?E78.00 - Pure hypercholesterolemia, unspecified (ICD-10) Atrial fibrillation ?I48.91 - Unspecified atrial fibrillation (ICD-10) Surgical History (Updated 12/14/24 @ 06:24 by Roxie Greenfield RN) Hx of carpal tunnel repair ?Z98.890 - Other specified postprocedural states (ICD-10) Family History Father Family history of myocardial infarction Family history of hypertension Mother Family history of cancer Family history of diabetes mellitus Social History (Updated 12/14/24 @ 06:25 by Roxie Greenfield RN) Within the past year, how often did you have a drink containing alcohol: 2-4 times a month Smoking status: Never smoker Non-prescribed substance use: denies use Highest level of school completed/degree received: high school graduate Are you now , , , , never or living with a partner: Little interest or pleasure in doing things: not at all Feeling down, depressed, or hopeless: not at all Gender Identity: male Exam Narrative Exam Narrative: Nurses notes and vital signs reviewed and patient is not hypoxic. General: Well-appearing and in no apparent distress. Skin: Warm, dry, no pallor noted. No rash. Head: Normocephalic, atraumatic. Neck: Supple, non-tender. Eye: Pupils are equal, round and EOMI. No scleral icterus. Ears, Nose, Mouth, and Throat: There is swelling of the nasal bridge and the patient have the clamp applied to stop bleeding from both nostrils, on the posterior aspect of the throat the patient have mild bleeding, no compromise of the airway. Neurological: A&O x4. No cranial nerve dysfunction observed. Constitutional Vital Signs, click to edit/add: Last Vital Signs Temp 98.2 F 06/01/25 17:55 Pulse 79 06/01/25 17:55 Resp 18 06/01/25 17:55 BP 140/82 06/01/25 17:55 Pulse Ox 98 06/01/25 17:55 O2 Del Method Room Air 06/01/25 17:55 Course Vital Signs Vital signs: Vital Signs Temperature 98.2 F 06/01/25 17:55 Pulse Rate 79 06/01/25 17:55 Respiratory Rate 18 06/01/25 17:55 Blood Pressure 140/82 06/01/25 17:55 Pulse Oximetry 98 06/01/25 17:55 Oxygen Delivery Method Room Air 06/01/25 17:55 Temperature 98.2 F 06/01/25 17:55 Pulse Rate 79 06/01/25 17:55 Respiratory Rate 18 06/01/25 17:55 Blood Pressure 140/82 06/01/25 17:55 Pulse Oximetry 98 06/01/25 17:55 Oxygen Delivery Method Room Air 06/01/25 17:55 MDM - Fall MDM Narrative Medical decision making narrative: On arrival the patient had a CT head as well as CT face ordered Clamp applied to the nose and the bleeding to right now is controlled with oxymetazoline applied and continue the pressure with the clamp for now INR ordered Discharge Plan Discharge Patient Disposition: Still a Patient
[2025-06-01] MEDS: OXYMETAZOLINE HCL 0.05% NASAL SPRAY 2 SPRAY NS (18:14)
[2025-06-01 19:32] LABS: INR 2.42; Prothrombin Time 23.5 sec (9.0-11.6)
== END 2025-06-01 19:56 | disposition home or self-care (01) ==
PROVIDERS: Emergency Medicine; Emergency Provider Emergency Medicine
DX: S02.2XXA Fracture of nasal bones, initial encounter for closed fracture (principal); S00.83XA Contusion of other part of head, initial encounter; W07.XXXA Fall from chair, initial encounter; I48.91 Unspecified atrial fibrillation; Z79.01 Long term (current) use of anticoagulants
CPT/HCPCS: 36415; 70450; 70486; 85610; 99284

== ENCOUNTER 2025-06-01 21:16 | Emergency (ER) | payer MEDICARE, SELFPAY ==
--- OUTSIDE RECORDS SUMMARY | 2025-05-20 23:59 | XMS_ITS | Continuity of Care Document ---
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) - 05/20/25 Discharge Disposition: Home (Routine DC) Attending Physician: Edwin Medina MD Encounter Type: Clinic Allergies, Adverse Reactions, Alerts No Known Medication Allergies Assessment and Plan Future Appointments Appointment Date:08/09/2025 10:40:00 AM Scheduled Provider:YANIQUE CHAMBERS CNP Location:[facility] Appointment Type: Open Appointment Date:05/13/2026 08:00:00 AM Scheduled Provider: Location:[facility] Appointment Type: Medicare Wellness Subsequent Future Scheduled Tests Laboratory* Basic Metabolic Panel 11/13/24 Immunizations Given and Recorded Vaccine Date Status Refusal Reason influenza virus vaccine, inactivated 09/29/24 Buck rded influenza virus vaccine, inactivated 08/19/23 Buck rded influenza virus vaccine, inactivated 08/02/14 Buck rded pneumococcal 20-valent conjugate vaccine 09/21/23 Recorded pneumococcal 13-valent vaccine 03/31/15 Recorded Not Given Vaccine Date Status Refusal Reason influenza virus vaccine, inactivated 08/28/24 Not Given Patient Refuses Medications atenolol 25 mg Tab See Instructions, take 1/2 tab daily, # 45 tab(s), Refills(s) 2, [facility], cm, 05/09/25 8:18:00 EDT, Height/Length Dosing, 80.6, kg, 05/09/25 8:18:00 EDT, Weight Dosing Start Date: 05/20/25 Status: Ordered Quantity: 45.0 Unit: tab(s) Repeat number: 3 Cialis 2.5 mg oral tablet 2.5 mg = 1 tab(s), Oral, Daily, PRN for erectile dysfunction, # 7 tab(s), Refills(s) 0, [id number] 178.6, cm, 02/05/25 13:36:00 EDT, Height/Length Dosing, 82.2, kg, 02/05/25 13:36:00 EDT, Weight Dosing Start Date: 05/07/25 Status: Ordered Quantity: 7.0 Unit: tab(s) Repeat number: 1 CoQ10 See Instructions, PRN Prophylaxis, Refills(s) 0 Start Date: 03/06/24 Status: Ordered Repeat number: 1 D3 See Instructions, Oral Daily- patient states he takes 500 once a day, Refills(s) 0 Start Date: 05/03/24 Status: Ordered Repeat number: 1 finasteride 5 mg Tab 5 mg = 1 tab(s), Oral, Daily, # 90 tab(s), Refills(s) 1, Pharmacy: [facility], 178.6, cm, 01/24/25 13:29:00 EDT, Height/Length Dosing, 82.7, kg, 01/24/25 13:29:00 EDT, Weight Dosing Start Date: 01/29/25 Status: Ordered Quantity: 90.0 Unit: tab(s) Repeat number: 2 gabapentin 300 mg Cap 300 mg = 1 cap(s), Oral, Daily, # 90 cap(s), Refills(s) 1, Pharmacy: [facility], 178.6, cm, 02/05/25 13:36:00 EDT, Height/Length Dosing, 82.2, kg, 02/05/25 13:36:00 EDT, WeightDosing Start Date: 04/25/25 Status: Ordered Quantity: 90.0 Unit: cap(s) Repeat number: 2 glimepiride 2 mg Tab 2 mg = 1 tab(s), Oral, Daily, # 90 tab(s), Refills(s) 1, Pharmacy: [facility], 178.6, cm, 02/05/25 13:36:00 EDT, Height/Length Dosing, 82.2, kg, 02/05/25 13:36:00 EDT, Weight Dosing Start Date: 02/18/25 Status: Ordered Quantity: 90.0 Unit: tab(s) Repeat number: 2 levothyroxine 25 mcg (0.025 mg) Tab See Instructions, TAKE 1 TABLET BY MOUTH DAILY ON AN EMPTY STOMACH, # 90 tab(s), Refills(s) 1, Pharmacy: [facility] [id number], 178.6, cm, 02/05/25 13:36:00 EDT, Height/Length Dosing, 82.2, kg, 02/05/25 13:36:00 EDT, Weight Dosing Start Date: 03/07/25 Status: Ordered Quantity: 90.0 Unit: tab(s) Repeat number: 1 meloxicam 7.5 mg Tab 7.5 mg = 1 tab(s), Oral, Daily, TAKE 1 TABLET DAILY, # 30 tab(s), Refills(s) 2, Pharmacy: [facility], 178.6, cm, 02/05/25 13:36:00 EDT, Height/Length Dosing, 82.2, kg, 02/05/2513:36:00 EDT, Weight Dosing Start Date: 04/25/25 Status: Ordered Quantity: 30.0 Unit: tab(s) Repeat number: 3 omeprazole 40 mg Cap-DR 40 mg = 1 cap(s), Oral, Daily, # 90 cap(s), Refills(s) 1, Pharmacy: [facility], 178.6, cm, 12/24/24 13:13:00 EST, Height/Length Dosing, 79, kg, 12/24/24 13:13:00 EST, Weight Dosing Start Date: 01/07/25 Status: Ordered Quantity: 90.0 Unit: cap(s) Repeat number: 2 pravastatin 40 mg Tab 40 mg = 1 tab(s), Oral, Daily, # 90 tab(s), Refills(s) 3, Pharmacy: [facility], 178, cm, 09/10/24 13:01:00 EDT, Height/Length Dosing, 80.1, kg, 09/10/24 13:01:00 EDT, Weight Dosing Start Date: 10/04/24 Status: Ordered Quantity: 90.0 Unit: tab(s) Repeat number: 4 Sodium Chloride 1 g oral tablet See Instructions, Take 1g BID daily, # 180 tab(s), Refills(s) 0, [id number] 178.6, cm, 05/09/25 8:18:00 EDT, Height/Length Dosing, 80.6, kg, 05/09/25 8:18:00 EDT, Weight Dosing Start Date: 05/14/25 Status: Ordered Quantity: 180.0 Unit: tab(s) Repeat number: 1 tamsulosin 0.4 mg Cap 0.4 mg = 1 cap(s), Oral, Daily, # 90 cap(s), Refills(s) 3, Pharmacy: [facility], 178.6, cm, 02/05/25 13:36:00 EDT, Height/Length Dosing, 82.2, kg, 02/05/25 13:36:00 EDT, WeightDosing Start Date: 05/07/25 Status: Ordered Quantity: 90.0 Unit: cap(s) Repeat number: 4 Turmeric 500 mg oral capsule 500 mg = 1 cap(s), Oral, Daily, PRN Prophylaxis, Refills(s) 0 Start Date: 03/06/24 Status: Ordered Repeat number: 1 Vitamin B12 50 mcg, Oral, Daily, PRN Prophylaxis, Refills(s) 0 Start Date: 03/06/24 Status: Ordered Repeat number: 1 warfarin 5 mg Tab 5 mg = 1 tab(s), Oral, Daily, # 90 tab(s), Refills(s) 0, Pharmacy: [facility], 178.6, cm, 02/05/25 13:36:00 EDT, Height/Length Dosing, 82.2, kg, 02/05/25 13:36:00 EDT, Weight Dosing Start Date: 03/27/25 Status: Ordered Quantity: 90.0 Unit: tab(s) Repeat number: 1 Problem List Condition Confirmation Course Effective Dates Status H ealth Status Informant ASCVD (arteriosclerotic cardiovascular disease) Confirmed Active Overweight (BMI 25.0-29.9) Confirmed Active Carpal tunnel syndrome, left Confirmed Active Erectile dysfunction due to arterial insufficiency Confirmed Active Hard of hearing Confirmed Active Hyperlipidemia Confirmed Active Hyponatremia Confirmed Active Hypothyroid Confirmed Active Longstanding persistent atrial fibrillation Confirmed Active Encounter for surveillance of abnormal nevi Confirmed Active Nonsmoker Confirmed Active Osteoarthritis Confirmed Active Body mass index (BMI) of 25.0-25.9 in adult Confirmed Resolved BMI 25.0-25.9,adult Confirmed Active Right inguinal hernia Confirmed Active Back spasm Confirmed Active Syncope Confirmed Active Trigger finger Confirmed Active DM type 2 causing vascular disease Confirmed Active Procedures Procedure Date Related Diagnosis Body Site Status LEFT Carpal tunnel release 11/19/24 Completed Carpal tunnel release 03/26/24 Com pleted Carpal tunnel release Com pleted Release of trigger finger Completed Surgery, neck X 2 Complet ed Social History Social History Type Response Smoking Status Never (less than 100 in lifetime);Never; Concerns about tobacco use in household: No; Smoking Cessation Yes 1 entered on: 05/09/25 Sex Male Sex Representation Male (finding) 1denies use. Patient Care team information Care Team Personnel Name: Alec Rodrigez Position: FT Animal Husbandry Worker - Self Assign Member Role: Chuck Wagon Cook Name: Edwin Medina MD Member Role: Primary Care Physician Address: [address] [place] [address] Telecom: Care Team Related Persons Name: HENRY ZABALA Name: HENRY ZABALA Name: HENRY ZABALA Name: HENRY ZABALA Insurance Providers Guarantor name: Health Plan Information #: 1 Payer: NA Payer Identifier: [id number] Member Number: [id number] Group Number: [id number] Subscriber Identifier: [id number] Relationship to Subscriber: Self Coverage Type: MEDICARE Coverage Verification Date: 25 Telecom: KARISSA Address: NA
--- OUTSIDE RECORDS SUMMARY | 2025-05-20 23:59 | XMS_ITS | Continuity of Care Document ---
Author Organization [facility] Address Unknown Care Team Providers Care Assistant Director Of Admissions Name Role Phone Edwin Medina Primary Care Physician Encounter _[facility] [id number] Date(s): 05/20/25 - [address]/20/[address] [facility] [place] [address]- Discharge Disposition: Home (Routine DC) Attending Physician: YANIQUE CHAMBERS CNP Admitting Physician: YANIQUE CHAMBERS CNP Encounter Type: Lab Drop off Allergies, Adverse Reactions, Alerts No Known Medication Allergies Assessment and Plan Future Appointments Appointment Date:08/09/2025 10:40:00 AM Scheduled Provider:YANIQUE CHAMBERS CNP Location:[facility] Appointment Type: Open Appointment Date:05/13/2026 08:00:00 AM Scheduled Provider: Location:[facility] Appointment Type: Medicare Wellness Subsequent Future Scheduled [...] daily, # 45 tab(s), Refills(s) 2, [facility], 178.6, cm, 05/09/25 8:18:00 EDT, Height/Length Dosing, 80.6, kg, 05/09/25 8:18:00 EDT, Weight Dosing Start Date: 05/20/25 Status: Ordered Quantity: 45.0 Unit: tab(s) Repeat number: 3 Cialis 2.5 mg oral tablet 2.5 mg = 1 tab(s), Oral, Daily, PRN for erectile dysfunction, # 7 tab(s), Refills(s) 0, Pharmacy: [id number], 178.6, cm, 02/05/25 13:36:00 EDT, Height/Length [...] Daily, # 90 tab(s), Refills(s) 1, Pharmacy: [facility], 178.6, cm, 01/24/25 13:29:00 EDT, Height/Length Dosing, 82.7, kg, 01/24/25 13:29:00 EDT, Weight Dosing Start Date: 01/29/25 Status: Ordered Quantity: 90.0 Unit: tab(s) Repeat number: 2 gabapentin 300 mg Cap 300 mg = 1 cap(s), Oral, Daily, # 90 cap(s), Refills(s) 1, Pharmacy: [facility], 178.6, cm, 02/05/25 13:36:00 EDT, Height/Length Dosing, 82.2, kg, 02/05/25 13:36:00 EDT, WeightDosing Start Date: 04/25/25 Status: Ordered Quantity: 90.0 Unit: cap(s) Repeat number: 2 glimepiride 2 mg Tab 2 mg = 1 tab(s), Oral, Daily, # 90 tab(s), Refills(s) 1, Pharmacy: [facility], 178.6, cm, 02/05/25 13:36:00 EDT, Height/Length Dosing, 82.2, kg, 02/05/25 13:36:00 EDT, Weight Dosing Start Date: 02/18/25 Status: Ordered Quantity: 90.0 Unit: tab(s) Repeat number: 2 levothyroxine 25 mcg (0.025 mg) Tab See Instructions, TAKE 1 TABLET BY MOUTH DAILY ON AN EMPTY STOMACH, # 90 tab(s), Refills(s) 1, Pharmacy: [place] [id number], 178.6, cm, 02/05/25 13:36:00 EDT, Height/Length Dosing, 82.2, kg, 02/05/25 13:36:00 EDT, Weight Dosing Start Date: 03/07/25 Status: Ordered Quantity: 90.0 Unit: tab(s) Repeat number: 1 meloxicam 7.5 mg Tab 7.5 mg = 1 tab(s), Oral, Daily, TAKE 1 TABLET DAILY, # 30 tab(s), Refills(s) 2, Pharmacy: [facility], 178.6, cm, 02/05/25 13:36:00 EDT, Height/Length Dosing, 82.2, kg, 02/05/2513:36:00 EDT, Weight Dosing Start Date: 04/25/25 Status: Ordered Quantity: 30.0 Unit: tab(s) Repeat number: 3 omeprazole 40 mg Cap-DR 40 mg = 1 cap(s), Oral, Daily, # 90 cap(s), Refills(s) 1, Pharmacy: [facility], 178.6, cm, 12/24/24 13:13:00 EST, Height/Length Dosing, 79, kg, 12/24/24 13:13:00 EST, Weight Dosing Start Date: 01/07/25 Status: Ordered Quantity: 90.0 Unit: cap(s) Repeat number: 2 pravastatin 40 mg Tab 40 mg = 1 tab(s), Oral, Daily, # 90 tab(s), Refills(s) 3, Pharmacy: [facility], 178, cm, 09/10/24 13:01:00 EDT, Height/Length Dosing, 80.1, kg, 09/10/24 13:01:00 EDT, Weight Dosing Start Date: 10/04/24 Status: Ordered Quantity: 90.0 Unit: tab(s) Repeat number: 4 Sodium Chloride 1 g oral tablet See Instructions, Take 1g BID daily, # 180 tab(s), Refills(s) 0, Pharmacy: [facility] #[id number], 178.6, cm, 05/09/25 8:18:00 EDT, Height/Length Dosing, 80.6, kg, 05/09/25 8:18:00 EDT, Weight Dosing Start Date: 05/14/25 Status: Ordered Quantity: 180.0 Unit: tab(s) Repeat number: 1 tamsulosin 0.4 mg Cap 0.4 mg = 1 cap(s), Oral, Daily, # 90 cap(s), Refills(s) 3, Pharmacy: [facility], 178.6, cm, 02/05/25 13:36:00 EDT, Height/Length [...] Daily, # 90 tab(s), Refills(s) 0, Pharmacy: [facility], 178.6, cm, 02/05/25 13:36:00 EDT, Height/Length Dosing, [...] Completed Surgery, neck X 2 Complet ed Results Laboratory List Name Date HgbA1c (Hemoglobin A1c) 05/20/25 Lipid Panel 05/20/25 Urine Microalbumin/Creatinine Ratio (U M icroalbumin/Cr Ratio) 05/20/25 Most recent to oldest [Reference Range]: 1 Chol [120-200 mg/dL] 150 mg/dL (05/20/25 8:32 AM) HDL 57 mg/dL 1 *NA* (05/20/25 8:32 AM) Trig [<=149 mg/dL] 53 mg/dL (05/20/25 8:32 AM) U Creatinine 62.9 mg/dL *NA* (05/20/25 8:32 AM) LDL Direct [<=129 mg/dL] 77 mg/dL (05/20/25 8:32 AM) U Microalb [0.0-1.9 mg/dL] <0.7 mg/dL (05/20/25 8:32 AM) Hgb A1C % [<=5.9 %] 5.6 % (05/20/25 8:32 AM) VLDL [7-40 mg/dL] 11 mg/dL (05/20/25 8:32 AM) Microalb/Cr Ratio [0.0-30.0 mg/gm Cr] NO T CALCULATED mg/gm Cr 2 *NA* (05/20/25 8:32 AM) 1Result Comment: '>= 60 LOW RISK' '<= 40 HIGH RISK' 2Interpretive Data: 30-300 mg/g Cr indicates an increased risk for diabetic nephropathy. >300 mg/g Cr is consistent with clinical nephropathy. Social History Social History Type Response Smoking Status Never (less than 100 in lifetime);Never; Concerns about tobacco use in household: No; Smoking Cessation Yes 1 entered on: 05/09/25 Sex Male Sex Representation Male (finding) 1denies use. Patient Care team information Care Team Personnel Name: Alec Rodrigez Position: FT Supervisor Engine Assembly - Self Assign Member Role: Inspector Advanced Composite Name: Adam COHN, Edwin Cole Member Role: Primary Care Physician Address: [address] [place] [address] Telecom: Care Team Related Persons Name: HENRY ZABALA Name: HENRY ZABALA Name: HENRY ZABALA Name: HENRY ZABALA Insurance Providers Guarantor name: Health Plan Information #: 1 Payer: NA Payer Identifier: [id number] Member Number: [id number] Group Number: [id number] Subscriber Identifier: [id number] Relationship to Subscriber: Self Coverage Type: MEDICARE Coverage Verification Date: Telecom: NA Address:
[2025-06-01 21:18] VITALS: BP 178/88; PULSE 78; TEMP 36.6; O2SAT 96
[2025-06-01] MEDS: OXYMETAZOLINE HCL 0.05% NASAL SPRAY 2 SPRAY NS (21:35)
--- OUTSIDE RECORDS SUMMARY | 2025-06-01 21:43 | XMS_ITS | Data Portability ---
Author Organization [place] [facility] Address [address] [address] [place] [address] Assessment Encounter Date Assessment Date Assessment LastModified by Organization Details LastModified Time 09/17/2014 09/17/2014 Patient schedule d for Lexiscan-Cardioli te stress test. Samples Pradaxa 150 mg #24 provided. Remaining medication as outlined to be maintained. Follow up three months. Not available 09/24/2014 12:09:47 12/19/2014 12/19/2014 Medication regiment as outlined to be maintained. Script given Voltaren Gel 1% 100 gm. Follow up 08/28 (leaving area for summer). Not available 12/23/2014 15:21:52 07/31/2015 07/31/2015 Echocardiogram and updated fasting CBC, CMP, lipid profile, TSH, FT4, PSA, hemoglobin A1C ordered. Samples Pradaxa 150 mg #24 provided. Remaining medication regiment as outlined to be maintained. Further intervention pending above results. Follow up three months. Not available 08/04/2015 18:19:47 10/30/2015 10/30/2015 U/A with microalbumin obtained. Medication regiment as outlined to be maintained. Follow up three months. Not available 11/03/2015 15:32:08 Plan of Treatment Reminders Order Date Submit Date Provider Last Modified By Organization Details Last Modified Time Details Appointments None record ed. Lab None record ed. Referral None record ed. Procedures None record ed. Surgeries None record ed. Imaging None record ed. Medication Orders None record ed. Patient TargetsNo targets recorded. Patient InstructionsNo instructions recorded. Reason for Referral None Reported. Results Created Date Observation Date Name Description Value Unit Range Abnormal Flag Note LastModifiedBy Organization Detail LastModifiedTime 08/04/20 15 08/05/2015 lipid panel , serum cholesterol, total 175 mg/dL 125-20 0 normal Not Available [facility] [address], [place], [address], 08/05/2015 06:40:15 08/04/20 15 08/05/2015 lipid panel , serum HDL cholesterol 55 mg/dL > or = 40 normal Not Available [facility] [address], [place], [address], 08/05/2015 06:40:15 08/04/20 15 08/05/2015 lipid panel , serum triglyceride s 83 mg/dL <150 normal Not Available [facility] [address], [place], [address], 08/05/2015 06:40:15 08/04/20 15 08/05/2015 lipid panel , serum LDL-choleste rol 103 mg/dL _(basil c) <130 normal Angella able range <100 mg/dL for patie nts with CHD or diabe raimundo and <70 mg/dL for diabe tic patie nts with known heart disea se. Not Available [facility] [address], [place], [address], 08/05/2015 06:40:15 08/04/20 15 08/05/2015 lipid panel , serum chol/HDLC ratio 3.2 (calc ) < or = 5.0 normal Not Available [facility] [address], [place], [address], 08/05/2015 06:40:15 08/04/2008/05/2015 lipid panel , serum non HDL cholesterol 120 mg/dL _(basil c) normal Targe t for non-H DL elana stero l is 30 mg/dL highe r than LDL elana stero l targe t. Not Available [facility] [address], [place], [address], 08/05/2015 06:40:15 08/04/20 15 08/05/2015 lipid panel , serum EBONY We recei ralph your handw ritte n test order and perfo rmed the AMA defin ed lipid panel . If this is not what you inten ded to order , pleas e conta ct your local clien t servi ce repre senta tive immed iatel y so that we may adjus t our ceci ng appro priat evelyne. You may also inqui re about alter nativ e or addit ional testi ng. Not Available [facility] [place] [facility] [address], [place], [address], 08/05/2015 06:40:15 08/04/2008/05/2015 CMP, serum or plasm a glucose 93 mg/dL 65-99 normal Fasti ng refer ence inter otoniel Not Available [facility] [place] [facility] [address], [place], [address], 08/05/2015 06:40:16 08/04/20 15 08/05/2015 CMP, serum or plasm a urea nitrogen (BUN) 12 mg/dL 7-25 normal Not Available [facility] [place] [facility] [address], [place], [address], 08/05/2015 06:40:16 08/04/2008/05/2015 CMP, serum or plasm a creatinine 0.99 mg/dL 0.70-1 .18 normal For patie nts >49 years of age, the refer ence limit for Creat inine is appro ximat evelyne 13% highe r for peopl e ident ified as Afric an-Am oneida n. Not Available [facility] [place] [facility] [address], [place], [address], 08/05/2015 06:40:16 08/04/2008/05/2015 CMP, serum or plasm a eGFR non-afr. macedonian 75 mL/mi n/1.7 3m2 > or = 60 normal Not Available [facility] [place] [facility] [address], [place], [address], 08/05/2015 06:40:16 08/04/20 15 08/05/2015 CMP, serum or plasm a eGFR 87 mL/mi n/1.7 3m2 > or = 60 normal Not Available [facility] [address], [place], [address], 08/05/2015 06:40:16 08/04/20 15 08/05/2015 CMP, serum or plasm a BUN/creatini ne ratio NOT APPLIC ABLE (calc ) 6-22 Not Available [facility] [address], [place], [address], 08/05/2015 06:40:16 08/04/20 15 08/05/2015 CMP, serum or plasm a sodium 140 mmol/ L 135-14 6 normal Not Available [facility] [address] [place], [place], [address], 08/05/2015 06:40:16 08/04/2008/05/2015 CMP, serum or plasm a potassium 4.3 mmol/ L 3.5-5. 3 normal Not Available [facility] [address], [place], [address], 08/05/2015 06:40:16 08/04/2008/05/2015 CMP, serum or plasm a chloride 105 mmol/ L 98-110 normal Not Available [facility] [address], [place], [address], 08/05/2015 06:40:16 08/04/2008/05/2015 CMP, serum or plasm a carbon dioxide 26 mmol/ L 19-30 normal Not Available [facility] [address], [place], [address], 08/05/2015 06:40:16 08/04/2008/05/2015 CMP, serum or plasm a calcium 9.4 mg/dL 8.6-10 .3 normal Not Available [facility] [address], [place], [address], 08/05/2015 06:40:16 08/04/20 15 08/05/2015 CMP, serum or plasm a protein, total 6.4 g/dL 6.1-8. 1 normal Not Available [facility] [address], [place], [address], 08/05/2015 06:40:16 08/04/2008/05/2015 CMP, serum or plasm a albumin 4.2 g/dL 3.6-5. 1 normal Not Available [facility] [address], [place], [address], 08/05/2015 06:40:16 08/04/2008/05/2015 CMP, serum or plasm a globulin 2.2 g/dL_ (calc ) 1.9-3. 7 normal Not Available [facility] [address], [place], [address], 08/05/2015 06:40:16 08/04/2008/05/2015 CMP, serum or plasm a albumin/glob ulin ratio 1.9 (calc ) 1.0-2. 5 normal Not Available [facility] [address], [place], [address], 08/05/2015 06:40:16 08/04/2008/05/2015 CMP, serum or plasm a bilirubin, total 0.9 mg/dL 0.2-1. 2 normal Not Available [facility] [address], [place], [address], 08/05/2015 06:40:16 08/04/2008/05/2015 CMP, serum or plasm a alkaline phosphatase 50 U/L 40-115 normal Not Available [facility] [address], [place], [address], 08/05/2015 06:40:16 08/04/20 15 08/05/2015 CMP, serum or plasm a AST 17 U/L 10-35 normal Not Available [facility] [address], [place], [address], 08/05/2015 06:40:16 08/04/20 15 08/05/2015 CMP, serum or plasm a ALT 14 U/L 9-46 normal Not Available [facility] [address], [place], [address], 08/05/2015 06:40:16 08/04/20 15 08/05/2015 CBC w/ auto diff white blood cell count 5.1 thous and/u L 3.8-10 .8 normal Not Available [facility] [address], [place], [address], 08/05/2015 06:40:16 08/04/20 15 08/05/2015 CBC w/ auto diff red blood cell count 4.57 colin on/uL 4.20-5 .80 normal Not Available [facility] [address], [place], [address], 08/05/2015 06:40:16 08/04/20 15 08/05/2015 CBC w/ auto diff hemoglobin 14.1 g/dL 13.2-1 7.1 normal Not Available [facility] [address], [place], [address], 08/05/2015 06:40:16 08/04/2008/05/2015 CBC w/ auto diff hematocrit 42.2 % 38.5-5 0.0 normal Not Available [facility] [address], [place], [address], 08/05/2015 06:40:16 08/04/2008/05/2015 CBC w/ auto diff MCV 92.4 fL 80.0-1 00.0 normal Not Available [facility] [address], [place], [address], 08/05/2015 06:40:16 08/04/20 15 08/05/2015 CBC w/ auto diff MCH 30.8 pg 27.0-3 3.0 normal Not Available [facility] [address], [place], [address], 08/05/2015 06:40:16 08/04/2008/05/2015 CBC w/ auto diff MCHC 33.3 g/dL 32.0-3 6.0 normal Not Available [facility] [address], [place], [address], 08/05/2015 06:40:16 08/04/2008/05/2015 CBC w/ auto diff RDW 14.3 % 11.0-1 5.0 normal Not Available [facility] [address], [place], [address], 08/05/2015 06:40:16 08/04/20 15 08/05/2015 CBC w/ auto diff platelet count 137 thous and/u L 140-40 0 low Not Available [facility] [address], [place], [address], 08/05/2015 06:40:16 08/04/2008/05/2015 CBC w/ auto diff MPV 10.1 fL 7.5-11 .5 normal Not Available [facility] [address], [place], [address], 08/05/2015 06:40:16 08/04/2008/05/2015 CBC w/ auto diff absolute neutrophils 2861 cells /uL 1500-7 800 normal Not Available [facility] [address], [place], [address], 08/05/2015 06:40:16 08/04/20 15 08/05/2015 CBC w/ auto diff absolute lymphocytes 1709 cells /uL 850-39 00 normal Not Available [facility] [address], [place], [address], 08/05/2015 06:40:16 08/04/20 15 08/05/2015 CBC w/ auto diff absolute monocytes 337 cells /uL 200-95 0 normal Not Available [facility] [address], [place], [address], 08/05/2015 06:40:16 08/04/2008/05/2015 CBC w/ auto diff absolute eosinophils 168 cells /uL 15-500 normal Not Available [facility] [address], [place], [address], 08/05/2015 06:40:16 08/04/20 15 08/05/2015 CBC w/ auto diff absolute basophils 26 cells /uL 0-200 normal Not Available [facility] [address], [place], [address], 08/05/2015 06:40:16 08/04/20 15 08/05/2015 CBC w/ auto diff neutrophils 56.1 % normal Not Available [facility] [address], [place], [address], 08/05/2015 06:40:16 08/04/2008/05/2015 CBC w/ auto diff lymphocytes 33.5 % normal Not Available [facility] [address], [place], [address], 08/05/2015 06:40:16 08/04/20 15 08/05/2015 CBC w/ auto diff monocytes 6.6 % normal Not Available [facility] [address], [place], [address], 08/05/2015 06:40:16 08/04/20 15 08/05/2015 CBC w/ auto diff eosinophils 3.3 % normal Not Available [facility] [address], [place], [address], 08/05/2015 06:40:16 08/04/20 15 08/05/2015 CBC w/ auto diff basophils 0.5 % normal Not Available [facility] [address], [place], [address], 08/05/2015 06:40:16 08/04/20 15 08/05/2015 T4, free, serum T4, free 1.2 NG/dL 0.8-1. 8 normal Not Available [facility] [address], [place], [address], 08/05/2015 06:40:17 08/04/2008/05/2015 TSH, serum or plasm a TSH 3.13 mIU/L 0.40-4 .50 normal Not Available [facility] [address], [place], [address], 08/05/2015 06:40:17 08/04/2008/05/2015 PSA, serum or plasm a PSA, total 1.9 NG/mL < or = 4.0 normal This test was perfo rmed using the Sieme ns chemi lumin escen t metho d. Value s obtai danna from diffe rent assay metho ds canno t be used inter chávez eably . PSA level s, regar dless of value , shoul d not be inter prete d as absol [place] evide nce of the prese nce or absen ce of disea se. Not Available [facility] [place] [facility] [address], [place], [address], 08/05/2015 06:40:17 08/04/2008/05/2015 HbA1c (hemo globi n A1c), blood hemoglobin A1C 6.1 %_of_ total _HGB <5.7 high Accor ding to ADA guide lines , hemog lobin A1c <7.0% repre sents optim al contr ol in non-p regna nt diabe tic patie nts. Diffe rent metri cs may apply to speci fic patie nt popul ation s. [facility] Medic al Care in Diabe raimundo-2 013. Diabe raimundo Care. 2013; 36:s1 1-s66 For the purpo se of jonathan mora for the prese nce of diabe raimundo <5.7% Consi stent with the absen ce of diabe raimundo 5.7-6 .4% Consi stent with incre ased risk for diabe raimundo (pred iabet es) >or=6 .5% Consi stent with diabe raimundo This assay resul t is consi stent with a highe r risk of diabe raimundo. Curre ntly, no conse nsus exist s for use of hemog lobin A1c for diagn osis of diabe raimundo for child eulalia. Not Available [facility] [address], [place], [address], 08/05/2015 06:40:18 10/30/20 15 10/31/2015 micro album in/cr eatin ine, mass ratio , urine creatinine, random urine 296 mg/dL 20-370 normal Not Available [facility] [place] [facility] [address], [place], [address], 10/31/2015 11:22:16 10/30/20 15 10/31/2015 micro album in/cr eatin ine, mass ratio , urine microalbumin 4.7 mg/dL see note: normal Refer ence Range : Refer ence Range Not estab lishe d Not Available [facility] [place] [facility] [address], [place], [address], 10/31/2015 11:22:16 10/30/20 15 10/31/2015 micro album in/cr eatin ine, mass ratio , urine microalbumin /creatinine ratio, random urine 16 mcg/m g_cre at <30 normal The ADA defin es abnor malit ies in album in excre tion as follo ws: Categ ory Resul t (mcg/ mg creat inine ) Bethany l <30 Micro album inuri a 30-29 9 Clini basil album inuri a > OR = 300 The ADA recom mends that at least two of three speci mens colle cted withi n a 3-6 month perio d be abnor mal befor e consi adina g a patie nt to be withi n a diagn ostic categ ory. Not Available [facility] [place] [facility] [address], [place], [address], 10/31/2015 11:22:16 10/30/20 14 imagi ng/di agnos tic resul t No observ ation record ed. [email or web address] [facility] ([facility]) [address], [place], [address], 11/01/2014 11:21:02 11/11/20 14 imagi ng/di agnos tic resul t No observ ation record ed. [email or web address] Not Available 2013 13:42:59 Result Notes None recorded. Problems Name Problem SNOMED Code Status Onset Date Resolution Date Notes Provider Name and Address Organization Details Recorded Time Degeneration of cervical intervertebral disc 12214694 Active Darlene Stack null, [place] - [facility] 5 15:32:08 Diabetes mellitus 88217792 Active Darlene Stack [place] - [facility] 5 15:32:08 Hyperlipidemia 52377381 Active Darlene Stack [place] - [facility] 5 15:32:08 Carpal tunnel syndrome 46764884 Active Connie Hogan null, [place] - [facility] 4 07:03:51 Osteoarthritis 590675978 Active Darlene Stack [place], [place] - [facility] 5 15:32:08 Carotid artery occlusion 524677837 Active Darlene Stack [place] - [facility] 5 15:32:08 Benign hypertension 16879382 Active Darlene Stack null, [place] - [facility] 5 15:32:08 Benign prostatic hyperplasia 184153939 Active Darlene Stack [place] - [facility] 5 15:32:08 Atrial fibrillation 00360094 Active Darlene Stack null, [place] - [facility] 5 15:32:08 Problem Notes None recorded. Procedures Surgical History Date Name Laterality Status Provider Name and Address Organization Details Recorded Time Other completed Connie Hogan [place] - [facility] 09/17/2014 07:03:51 Other completed Connie Hogan [place] - [facility] 09/17/2014 07:03:51 Imaging Results None recorded. Procedure Notes None recorded. Medical Equipment None Reported. Allergies No known drug allergies Medications Name Sig Start Date Stop Date Status Note LastModified by Organization Details LastModified Time aspirin low dose 81mg ec active Not Available Not Available Not Available vitamin b12 active Not Available Not A vailable Not Available ear wax removal drops active Not Available Not Availabl e Not Available pravastatin 40 mg tablet Take 1 tablet every day by oral route. 2014 active Not Available Not Available Not Avai lable benzonatate 200 mg capsule Take 1 capsule 3 times a day by oral route. active Not Available Not Available No t Available hydrocodone 5 mg-acetaminoph en 325 mg tablet active Not Available Not Available Not Available meloxicam 15 mg tablet Take 1 tablet every day by oral route. active Not Available Not Available No t Available atenolol 25 mg tablet Take 1 tablet every day by oral route. 2014 active RX E-SCR IBED ON 10/30 @ 4:03/ ka Not Available Not Available Not Available glimepiride 2 mg tablet Take 1 tablet every day by oral route. 2014 active RX E-SCR IBED ON 10/30 @ 4:04/ ka Not Available Not Available Not Available tamsulosin 0.4 mg capsule Take 1 capsule by mouth every day active Not Available Not Available No t Available cephalexin 500 mg capsule active Not Available Not Available N ot Available finasteride 5 mg tablet Take 1 tablet every day by oral route. 2014 active RX E-SCR IBED ON 10/30 @ 4:04/ ka Not Available Not Available Not Available Voltaren 1 % topical gel APPLY 1/2 inchTO THE AFFECTED AREA(S) BY TOPICAL ROUTE BID active Not Available Not Available No t Available Colcrys 0.6 mg tablet active Not Available Not Available Not Available Pradaxa 150 mg capsule Take 1 capsule twice a day by oral route. active Not Available Not Available No t Available Fluzone High-Dose (PF) 180 mcg/0.5 mL intramuscular syringe active Not Available Not Available Not Available Fluvirin (PF) 45 mcg (15 mcg x 3)/0.5 mL IM syringe active Not Available Not Available Not Available Vitals Date Recorded Body weight Heart rate Body mass index (BMI) Body height Systolic And Diastolic Provider Name and Address Organization Details Last Updated DateTime 12/19/2014 97993.65 874 g 64 /min 28.2 kg/m2 180.34 cm 120/80 mm[Hg] Connie Espos[facility] DO 12/19/2014 12:57:22 Date Recorded Body weight Body height Body mass index (BMI) Heart rate Provider Name and Address Organization Details Last Updated DateTime 07/31/2015 46610.2892 6 g 180.34 cm 27.6 kg/m2 64 /min Connie Esposito [facility] DO 07/31/2015 13:31:39 Date Recorded Systolic And Diastolic Provider Name and Address Organization Details Last Updated DateTime 07/31/2015 156/78 mm[Hg] Darlene [facility] DO 08/04/2015 18:17:15 Date Recorded Body weight Heart rate Body mass index (BMI) Body height Systolic And Diastolic Provider Name and Address Organization Details Last Updated DateTime 09/17/2014 96908.06 637 g 72 /min 28 kg/m2 180.34 cm 110/70 mm[Hg] Connie Espos[facility] DO 09/17/2014 14:01:03 Date Recorded Body weight Heart rate Body mass index (BMI) Body height Systolic And Diastolic Provider Name and Address Organization Details Last Updated DateTime 10/30/2015 71534.14 267 g 64 /min 26.6 kg/m2 180.34 cm 120/80 mm[Hg] Connie Espos[facility] DO 10/30/2015 14:05:19 Social History None recorded. Functional Status Question Answer Note LastModified by Organizat ion Details LastModified Time What is your level of alcohol consumption? Occasional SOCIAL [id number] Information not available 09/16/2020 Mental Status None recorded. Family History Nothing Reported. Medical History Condition Response Coronary Artery Disease N Gout N Atrial Fibrillation Y Parkinson's Disease N Heart Disease/Heart Problems N Head Trauma/Injury N Thyroid Problems N Depression N COPD N Brain Tumors N Pacemaker N Peripheral Arterial Disease N Anemia N Multiple Sclerosis N TIA N Headaches/Migraines N Deep Vein Thrombosis N Obstructive Sleep Apnea N Neurological Problems N Anxiety Disorder N Diabetes Y Cardiomyopathy N Arthritis Y Blood Clot N Myocardial Infarction N Cancer N Back Problems Y Stroke N Diverticulitis N Dementia N Asthma N Allergies N Carotid Disease Y Epilepsy/Seizures N Bladder or Kidney Problems N Vertigo N GERD/Reflux N Aneurysm N Pulmonary Embolism N Arrhythmia N Fibromyalgia N Hypertension Y Osteoporosis N Past Encounters Encounter ID Performer Location Encounter Start Date Encounter Closed Date Diagnosis/Indication Diagnosis SNOMED-CT Code Diagnosis ICD10 Code Diagnosis Note [id number] RYANNE BOO [facility] ESPW[facility] [address] [place] [address] 4 09/17/2014 13:42:26 09/17/2014 14:55:10 [id number] [facility] [address] [place] [address] 4 12/19/2014 12:50:16 12/19/2014 13:10:17 [id number] [facility] [address] [place] [address] 4 07/31/2015 13:22:22 07/31/2015 14:02:07 [id number] [facility] [address] [place] [address] 4 10/30/2015 13:48:24 10/30/2015 14:22:06 Benign hypertension 43130339 I10 Atrial fibrillation 4943 6004 I48.0 Benign pro static hyperplasia 358098600 N40.0 Carotid ar bay occlusion 833653077 I65.29 Degenerati on of cervical intervertebral disc 13884938 M50.30 Diabetes mellitus 227207 09 E11.9 Hyperlipidemia 21157468 E78.5 Osteoarthritis 147400452 M15.0 Health Concerns Section Related Observation LastModified by Organization Detai ls LastModified Time None Recorded Concern Status LastModified by Organization Details LastModified Time None Recorded Advance Directives Directive None Recorded Payers Insurance Date Sequence Insurance Name Policy Number Policy Lopes Covered Member ID Lopes Member ID Guarantor Name 08/16/2022 1 [employer] (MEDICARE REPLACEMENT/A DVANTAGE - PPO) Dariel Aguilera [id number] Dariel Aguilera
--- OUTSIDE RECORDS SUMMARY | 2025-06-01 21:43 | XMS_ITS | Clinical Summary ---
Author Organization [facility] Address [address] [place] [id number] Care Team Providers Care Laminator Preforms Name Role Phone Unavailable Primary Care Provider Unavailabl e Allergies No known active allergies Medications ASPIRIN 81 MG ORAL TAB Take one (1) tablet daily . 0 5 Active cyanocobalamin 1,000 mcg ORAL Tab Take 1 tablet by mouth once daily. 0 1 Active Blood-Glucose Meter (CONTOUR METER) monitoring kitIndications:Type II or unspecified type diabetes mellitus without mention of complication, not stated as uncontrolled Testing twice daily 1 Each 0 2 Active blood sugar diagnostic (CONTOUR TEST STRIPS) test stripIndications:Ty pe II or unspecified type diabetes mellitus without mention of complication, not stated as uncontrolled Test blood sugar(s) 2 times daily. Dx: non. Insulin: No dx 250.00 100 Strip 11 3 Active dabigatran etexilate (PRADAXA) 150 mg capIndications:Atri al fibrillation (HCC) Take 1 capsule by mouth twice daily. 180 capsule 3 4 Active pravastatin (PRAVACHOL) 40 mg tabletIndications:O ther and unspecified hyperlipidemia Take 1 tablet by mouth daily at bedtime. 90 tablet 3 4 Active finasteride (PROSCAR) 5 mg tabletIndications:B PH with urinary obstruction Take 1 tablet by mouth once daily. 90 tablet 3 4 Active tamsulosin (FLOMAX) 0.4 mg cp24 Take 1 capsule by mouth daily at bedtime. 90 capsule 3 4 Active glimepiride (AMARYL) 2 mg tabletIndications:T ype II or unspecified type diabetes mellitus without mention of complication, not stated as uncontrolled Take 1 tablet by mouth once daily. 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 Denis Adhikari, [facility], [facility]. Neuropathy 03/25/2010 Carpal tunnel syndrome 08/23/2007 Other and unspecified hyperlipidemia Type II or unspecified type diabetes mellitus without mention of complication, not stated as uncontrolled Resolved Problems Problem Noted Date Diagnosed Date Resolved Date Myalgia 03/10/2010 03/01/2011 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 and other lower urinary tract symptoms (LUTS) 08/11/2006 01/11/2013 Elevated prostate specific antigen (PSA) 03/07/2012 Immunizations Immunization Administration Dates Next Due TD Adult 03/07/2012 influenza (HD-IIV3) vaccine, age 65+ yr, high dose, trivalent, PF (FLUZONE HIGH-DOSE) 08/02/2014 influenza vaccine, unspecified formulation 08/09,07/31/2012,08/07/2011 pneumococcal conjugate (PCV1 3) vaccine, 13 valent (PREVNAR 13) 03/31/2015 zoster (ZVL) vaccine, live (ZOSTAVAX) 08/29/2013 Family History Medical History Relation Comments Coronary Artery Disease Father dec. 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 [employer] Not on file Not on file Not on file Last Filed Vital Signs Vital Sign Reading Time Taken Comments Blood Pressure 104/70 04/09/2015 10:21 AM EDT le ft Pulse 70 04/09/2015 10:21 AM EDT Temperature 36.4 C (97.5 F) 04/29/2014 6:00 PM EDT Respiratory Rate 12 03/31/2015 10:46 AM EDT Oxygen Saturation 98% 05/06/2011 2:49 PM EDT Inhaled Oxygen Concentration - - Weight 90.7 kg (200 lb) 04/09/2015 10:17 AM EDT Height 178.4 cm (5' 10.25 ) 08/01/2014 12:59 PM EDT Body Mass Index 28.49 08/01/2014 12:59 PM EDT Plan of Treatment Health Maintenance Due Date Last Done Comments Anxiety Screening 1958 Depression Screening 1958 Shingrix Vaccine (2 of 3) 10/24/2013 08/29/2013 DTaP,Tdap,Td Vaccine (1 - Tdap) 02/01/2015 5, 03/07/2012 Pneumococcal Vaccine: 50+ (2 of 2 - PPSV23) 03/31/2016 03/31/2015 RSV Vaccine (1 - 1-dose 75+ series) 2017 Diabetes Screening 03/24/2018 03/24/2015, 0 03/24/2015, 07/25/2014, Additional history exists Covid-19 Vaccine (1 - 2023-2 5 season) 2024 Advance Directive Discussion 11/14/2024 Influenza Vaccine (#1) 2025 4, 08/09/2013, 07/31/2012, Additional history exists Colonoscopy Discontinued 07/22/2011, 06/2011, 11/14/1999 (Colonoscopy - Not High Risk - 10yr (ENTER DATE DONE)) Colorectal Cancer Screening Discontinued Fecal Occult Blood Discontinued 08/02/2014, 04/14/2013 CT Colonography Discontinued Cologuard (FIT-DNA) Discontinued Sigmoidoscopy Discontinued Procedures Procedure Name Priority Date/Time Associated Diagnosis Comments BASIC METABOLIC PANEL Routine 03/24/2015 10:21 AM EDT DIABETES MELLITUS TYPE II-UNCOMPL IMMUNOCHEMICAL FECAL OCCULT BLOOD TEST Routine 08/02/2014 12:04 PM EDT Screening for colon cancer COLONOSCOPY - DIAGNOSTIC 07/22/2011 8:11 AM EDT from Last 3 Months or Most Recently Relevant to Health Maintenance Results * (ABNORMAL) BASIC METABOLIC PNL (03/24/2015 10:21 AM EDT) Glucose 115(H) 65 - 100 mg/dL 03/24/2015 10:53 PM EDT [facility] BUN 15 10 - 25 mg/dL 03/24/2015 10:53 PM EDT [facility] Creatinine 1.10 0.70 - 1.40 mg/dL 03/24/2015 10:53 PM EDT [facility] Sodium 139 135 - 146 mmol/L 03/24/2015 10:53 PM EDT [facility] Potassium 4.5 3.5 - 5.0 mmol/L 03/24/2015 10:53 PM EDT [facility] Chloride 103 98 - 110 mmol/L 03/24/2015 10:53 PM EDT [facility] CO2 24 23 - 32 mmol/L 03/24/2015 10:53 PM EDT [facility] Anion Gap 12 0 - 15 mmol/L 03/24/2015 10:53 PM T [facility] Calcium 9.2 8.5 - 10.5 mg/dL 03/24/2015 10:53 PM EDT [facility] eGFR- >60 03/24/2015 10:53 PM [facility] eGFR-All Other Races >60 . 03/24/2015 10:53 PM [facility] Comment: eGFR (Estimated GFR) Units of measure: mL/min/1.73 meters squared eGFR is derived from the reexpressed MDRD Study equation using the following parameters: serum creatinine, age, gender and race. The creatinine assay has been calibrated to be traceable to IDMS. An eGFR <60 mL/min/1.73m2 for >3 months is consistent with chronic kidney disease. Refer to KDOQI guidelines for clinical interpretation. In patients with unstable renal function, e.g. those with acute kidney injury, the eGFR may not accurately reflect actual GFR. Blood specimen (specimen) BLOOD SPECIMEN / Unknown 03/24/2015 10:21 AM EDT 03/24/2015 10:22 AM EDT us Addi Valdes MD LABORATORY Final Resu lt [facility] [address] [place] [id number] * FECAL OCCULT BLOOD TEST (08/02/2014 12:04 PM EDT) Occult Blood, Stool Negative NEGAT [facility] Stool specimen (specimen) STOOL SPECIMEN / Unknown 08/02/2014 12:04 PM EDT 08/03/2014 8:05 AM EDT us Addi Valdes MD LABORATORY Final Resu lt Performing Organization Address [facility] Co de Phone Number [facility] [address] [place] [address] * COLONOSCOPY - DIAGNOSTIC (07/22/2011 8:11 AM EDT) [employer] Advisory Team Watch Officer [facility] Submarine Advisory Team Watch Officer Gastrointestinal Endoscopy [facility] Advisory Team Watch Officer Patient Name: Dariel Aguilera [facility] Sub[employer] Advisory Team Watch Officer Procedure Date: 07/22/2011 8:11:16 AM [facility] [employer] Advisory Team Watch Officer [facility] Submarine Advisory Team Watch Officer Date of : 1940 [facility] Team Watch Officer Admit Type: Ambulatory [facility] Advisory Team Watch Officer Age: 71 [facility] Advisory Team Watch Officer Gender: Male [facility] Submarine Advisory Team Watch Officer Note Status: Finalized [facility] [employer] Advisory Team Watch Officer Procedure: Colonoscopy [facility] Advisory Team Watch Officer Indications: Screening for colorectal malignant neoplasm. Last [facility] [employer] Advisory Team Watch Officer colonoscopy remote past. Please see recent office note [facility] [employer] Advisory Team Watch Officer dated 04/05/11 for clinical details. [facility] Advisory Team Watch Officer Providers: Chau Horan MD [facility] Advisory Team Watch Officer Referring Physician: Dr.V. Valdes [facility] [employer] Advisory Team Watch Officer Medicines: Meperidine 60 mg IV, Midazolam 3.5 mg IV [facility] [employer] Advisory Team Watch Officer Complications: No immediate complications. [facility] Advisory Team Watch Officer Requesting Provider: [facility] Advisory Team Watch Officer Procedure: Pre-Anesthesia Assessment: [facility] Advisory Team Watch Officer - Respiratory Examination: clear to auscultation. [facility] Advisory Team Watch Officer - CV Examination: RRR, no murmurs, no S3 or S4. [facility] [employer] Advisory Team Watch Officer - Abdominal Examination: bowel sounds present, abdomen [facility] [employer] Advisory Team Watch Officer soft and non-tender, no masses or organomegaly noted. [facility] Advisory Team Watch Officer After I obtained informed consent, the scope was passed [facility] Advisory Team Watch Officer under direct vision. Throughout the procedure, the [facility] Advisory Team Watch Officer patient's blood pressure, pulse, and oxygen saturations [facility] [employer] Advisory Team Watch Officer were monitored continuously. The Colonoscope was [facility] Advisory Team Watch Officer introduced through the anus and advanced to the cecum, [facility] [employer] Advisory Team Watch Officer identified by the ileocecal valve. The colonoscopy was [facility] [employer] Advisory Team Watch Officer performed without difficulty. The patient tolerated the [facility] [employer] Advisory Team Watch Officer procedure well. The quality of the bowel preparation was [facility] Advisory Team Watch Officer fair. [facility] [employer] Advisory Team Watch Officer Findings: [facility] [employer] Advisory Team Watch Officer Non-bleeding internal hemorrhoids were found during retroflexion and [facility] Advisory Team Watch Officer during digital exam and were small. Multiple diverticula were found in [facility] [employer] Advisory Team Watch Officer the proximal sigmoid colon and in the descending colon. The exam was [facility] [employer] Advisory Team Watch Officer otherwise normal throughout the examined colon.There is no endoscopic [facility] [employer] Advisory Team Watch Officer evidence of polyps in the entire colon. [facility] [employer] Advisory Team Watch Officer Impression: - Preparation of the colon was fair. [facility] [employer] Advisory Team Watch Officer - Non-bleeding internal hemorrhoids. [facility] [employer] Advisory Team Watch Officer - Diverticulosis proximal sigmoid colon and descending [facility] [employer] Advisory Team Watch Officer colon. [facility] [employer] Advisory Team Watch Officer Recommendation: - Collect Hemoccults on three spontaneously passed [facility] [employer] Advisory Team Watch Officer stools annually. [facility] [employer] Advisory Team Watch Officer - Repeat colonoscopy in 10 years for screening purposes. [facility] [employer] Advisory Team Watch Officer - Copy to Addi aVldes M.D. [facility] [employer] Advisory Team Watch Officer Chau Horan MD [facility] Advisory Team Watch Officer Chau Horan MD [facility] Advisory Team Watch Officer 07/22/2011 8:38:04 AM [facility] [employer] Advisory Team Watch Officer Number of Addenda: 0 [facility] [employer] Advisory Team Watch Officer Note Initiated On: 07/22/2011 8:11:16 AM [facility] Anatomical Region Laterality Modality Other 07/22/2011 8:11 AM EDT us [facility] Provider [facility] Final Result from Last 3 Months or Most Recently Relevant to Health Maintenance Insurance [facility]
--- OUTSIDE RECORDS SUMMARY | 2025-06-01 21:44 | XMS_ITS | Patient Health Record ---
Author Organization [facility] Address [address] [place] [address] Care Team Providers Care Fish Boning Machine Feeder Name Role Phone VLADIMIR GONZALEZ Unavailable [phone] Allergies No Known Allergies Reason For Referral No Information Medications Medication SIG (Take, Route, Frequency, Duration) Notes Start Date End Date Status Carpal Tunnel Wrist Stabilizer - as directed APPLY TO WRISTS EVERY NIGHT; Duration: 30 days Active Massage Therapy once a week; Duration: 6 weeks Active QHC Probiotic & Enzyme 1 capsule TID Active Pravastatin Sodium 20 MG TAKE 1 TABLET ONCE DAILY; Duration: 90 Active Meloxicam 15 MG 1 tablet Orally Once a day; Duration: 90 days Active Warfarin Sodium 5 MG 1 tablet Orally Once a day; Duration: 90 days continue current regimen of 5mg and 2.5mg every other day starting 11/21/20-John Minor 03/03/2021 10:55:23 AM EDT > Active Sildenafil Citrate 100 MG TAKE 1 TABLET DAILY NEEDED; Duration: 30 Active Gabapentin 300 MG 1 capsule Orally TWICE DAILY; Duration: 90 days Active Levothyroxine Sodium 25 MCG 1 tablet in the morning on an empty stomach Orally Once a day; Duration: 90 days Active Carpal Tunnel Wrist Stabilizer - as directed apply to left wrist QHS; Duration: 30 days Left wrist Active Glimepiride 2 MG TAKE 1 TABLET DAILY WITH BREAKFAST OR FIRST MAIN MEAL OF THE DAY; Duration: 90 Active Amoxicillin-Pot Clavulanate 875-125 MG 1 tablet Orally every 12 hrs; Duration: 10 day(s) Not-Taking Omeprazole 40 MG 1 capsule 30 minutes before morning meal Orally Once a day; Duration: 90 days Active Atenolol 25 MG 1 tablet Orally Once a day; Duration: 90 days Active Atenolol 25 MG TAKE 1 TABLET ONCE DAILY; Duration: 90 Active Glimepiride 2 MG 1 tablet with breakfast or the first main meal of the day Orally Once a day; Duration: 90 days Active Immunizations Vaccine Route Administration Date Status Comme nts COVID-19 VACCINE Unknown 03/31/2021 Administered [place] Social History Tobacco Use: Social History Observation Description Date Details (start date - stop date) Never Smoker NA - NA Tobacco Use/Smoking Question Answer Notes Are you a nonsmoker Alcohol Screen (Audit-C) Question Answer Notes Did you have a drink contain ing alcohol in the past year? Yes How often did you have a dri nk containing alcohol in the past year? Monthly or less (1 point) How many drinks did you have on a typical day when you were drinking in the past year? 1 or 2 drinks (0 point) How often did you have 6 or more drinks on one occasion in the past year? 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 (032340038) 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 (poly)neuropathy (E11.43) Active confirmed Problem Disorder due to type 2 diabetes mellitus (931064730) Type 2 diabetes mellitus with unspecified complications (E11.8) Active confirmed Problem Mild cognitive disorder (370882652) Mild cognitive impairment, so stated (G31.84) Active confirmed Problem Carpal tunnel syndrome (36551391) Carpal tunnel syndrome, left upper limb (G56.02) Active confirmed Problem Hordeolum externum (9614537) Hordeolum externum left upper eyelid (H00.014) Active confirmed Problem Chalazion (2215612) Chalazion left upper eyelid (H00.14) Active confirmed Problem Nuclear senile cataract (521009105) Age-related nuclear cataract, bilateral (H25.13) Active confirmed Problem Otitis externa (7487698) Unspecified otitis externa, unspecified ear (H60.90) Active confirmed Problem Actinic keratosis (683115) Actinic keratosis (L57.0) Active confirmed Problem Ingrowing nail (847665513) Ingrowing nail (L60.0) Active confirmed Problem Osteoarthritis (671763731) Unspecified osteoarthritis, unspecified site (M19.90) Active confirmed Problem Low back pain (856548584) Low back pain (M54.5) Active confirmed Problem Palpitations (70665962) Palpitations (R00.2) Active confirmed Problem Lower abdominal pain (93705984) Lower abdominal pain, unspecified (R10.30) Active confirmed Problem C-reactive protein abnormal (218341925) Elevated C-reactive protein (CRP) (R79.82) Active confirmed Problem Adult health examination (906561801) Encounter for general adult medical examination without abnormal findings (Z00.00) Active confirmed Problem Screening for malignant neoplasm of prostate (360564393) Encounter for screening for malignant neoplasm of prostate (Z12.5) Active confirmed Problem Counseling (923678588) Other specified counseling (Z71.89) Active confirmed Problem Hyperlipidemia (81849289) Hyperlipidemia, unspecified (E78.5) Active confirmed Problem Essential hypertension (63422201) Essential (primary) hypertension (I10) Active confirmed Problem Carpal tunnel syndrome (45426020) Carpal tunnel syndrome, bilateral upper limbs (G56.03) Active confirmed Problem Erectile dysfunction (524041680) Erectile Dysfunction (N52.9) Active confirmed Problem Vitamin D deficiency (56888210) Vitamin D deficiency (E55.9) Active confirmed Problem Atrial fibrillation (63987605) Atrial fibrillation (I48.91) Active confirmed continue current regimen of 5mg and 2.5mg every other day starting 11/21/20-CL K Problem Carotid bruit (102193399) Carotid bruit (R09.89) Active confirmed Problem Fatigue (42618660) Fatigue (R53.83) Active conf irmed Problem Nephrolithiasis (91639132) Nephrolithiasis (N20.0) Active confirmed Problem Cholelithiasis (473547421) Cholelithiasis (K80.20) Active confirmed Problem Carotid artery stenosis (24349978) CAROTID STENOSIS (I65.29) Active confirmed Problem Lumbar spondylosis (186958921) Lumbar spondylosis (M47.817) 020 Active confirmed Med HEDIS WAS DONE,unco ntrolled Problem Hyperglycemia due to type 2 diabetes mellitus (040815653667413) Type 2 diabetes mellitus with hyperglycemia (E11.65) Active confirmed Problem Vitamin B12 deficiency (691056163) Vitamin B12 deficiency (D51.9) Active confirmed Problem Hearing loss (02285149) Hearing loss (H91.90) Active confirmed Problem Memory loss (91915147) Memory loss (R41.3) Active confirmed Problem Lower urinary tract symptoms due to benign prostatic hypertrophy (96319897893300) Benign prostatic hyperplasia with lower urinary tract symptoms (N40.1) Active confirmed Problem Hyperlipidemia (02973628) Hyperlipidemia, unspecified (E78.5) Active confirmed Problem Gastroesophageal reflux disease (134375199) Gastroesophageal reflux disease (K21.9) Active confirmed Problem Hearing loss (disorder) (35326001) Hearing loss (disorder) (H91.90) Active confirmed Problem Carpal tunnel syndrome (disorder) (66866357) Carpal tunnel syndrome (disorder) (G56.00) Active confirmed Problem Pre-surgery evaluation (581101131) Pre-operative examination, unspecified (Z01.818) Active confirmed Problem Impacted cerumen (08749430) Impacted cerumen (H61.20) Active confirmed Problem Depression Screening (587946226) Encounter for screening for depression (Z13.31) Active confirmed Problem COVID-19 (252259044) COVID-19 (U07.1) Active confirmed Plan Of Treatment Pending Test Test Name Order Date ADVANCED CARE PLANNING 07/07/2021 *EAR Lavage 11/21/2020 *EAR Lavage 09/05/2020 TSH+FREE T4 12/19/2019 TSH+FREE T4 10/19/2021 TSH+FREE T4 02/16/2022 TSH+FREE T4 01/15/2022 TSH+FREE T4 05/29/2021 TSH+FREE T4 03/03/2021 LIPID PANEL WITH REFLEX TO DIRECT LDL LIPID PANEL WITH REFLEX TO DIRECT LDL LIPID PANEL WITH REFLEX TO DIRECT LDL LIPID PANEL WITH REFLEX TO DIRECT LDL LIPID PANEL WITH REFLEX TO DIRECT LDL LIPID PANEL WITH REFLEX TO DIRECT LDL THYROID PEROXIDASE AND THYROGLOBULIN ANT IBODIES 10/19/2021 THYROID PEROXIDASE AND THYROGLOBULIN ANT IBODIES 02/16/2022 THYROID PEROXIDASE AND THYROGLOBULIN ANT IBODIES 01/15/2022 THYROID PEROXIDASE AND THYROGLOBULIN ANT IBODIES 05/29/2021 THYROID PEROXIDASE AND THYROGLOBULIN ANT IBODIES 03/03/2021 COMPREHENSIVE METABOLIC PANEL (REFL) COMPREHENSIVE METABOLIC PANEL (REFL) COMPREHENSIVE METABOLIC PANEL (REFL) 02/2022 COMPREHENSIVE METABOLIC PANEL (REFL) 03/2022 COMPREHENSIVE METABOLIC PANEL (REFL) 04/2021 COMPREHENSIVE METABOLIC PANEL 12/19/2019 MAGNESIUM 12/19/2019 MAGNESIUM 10/19/2021 MAGNESIUM 02/16/2022 MAGNESIUM 01/15/2022 MAGNESIUM 05/29/2021 MAGNESIUM 03/03/2021 CBC (INCLUDES DIFF/PLT) 05/29/2021 CBC (INCLUDES DIFF/PLT) 01/15/2022 CBC (INCLUDES DIFF/PLT) 02/16/2022 CBC (INCLUDES DIFF/PLT) 10/19/2021 CBC (INCLUDES DIFF/PLT) 03/03/2021 CBC (INCLUDES DIFF/PLT) 12/19/2019 C-REACTIVE PROTEIN 12/19/2019 HS CRP 10/19/2021 HS CRP 02/16/2022 HS CRP 01/15/2022 HS CRP 05/29/2021 HS CRP 03/31/2021 HEMOGLOBIN A1c 10/19/2021 HEMOGLOBIN A1c 05/29/2021 HEMOGLOBIN A1c 01/15/2022 HEMOGLOBIN A1c 02/16/2022 HEMOGLOBIN A1c 12/19/2019 VITAMIN B12/FOLATE, SERUM PANEL 12/19/19 20 VITAMIN B12/FOLATE, SERUM PANEL 10/19/20 21 VITAMIN B12/FOLATE, SERUM PANEL 02/17/20 22 VITAMIN B12/FOLATE, SERUM PANEL 01/16/20 22 VITAMIN B12/FOLATE, SERUM PANEL 05/29/20 21 VITAMIN B12/FOLATE, SERUM PANEL 03/03/20 21 T3, FREE 03/03/2021 T3, FREE 05/29/2021 T3, FREE 01/15/2022 T3, FREE 10/19/2021 T3, FREE 02/16/2022 T3, FREE 12/19/2019 VITAMIN D,25-OH,TOTAL,IA 12/19/2019 VITAMIN D,25-OH,TOTAL,IA 10/19/2021 VITAMIN D,25-OH,TOTAL,IA 02/16/2022 VITAMIN D,25-OH,TOTAL,IA 01/15/2022 VITAMIN D,25-OH,TOTAL,IA 05/29/2021 VITAMIN D,25-OH,TOTAL,IA 03/03/2021 TISSUE PATHOLOGY 08/28/2020 *MSE-MEMORY TEST 12/07/2019 *Cryosurgery 15 or more 12/19/2019 *Cryosurgery 15 or more 09/17/2020 *Cryosurgery 15 or more 11/20/2021 *Cryosurgery 15 or more 05/26/2022 *Biopsy 1st 12/19/2019 *PT/INR 11/20/2021 *PT/INR 12/18/2021 *PT/INR 01/28/2021 *Urine Microalbumin 12/18/2021 *Creatine 12/18/2021 *Annual Depresion Screening 12/19/2020 *Annual Depresion Screening 12/07/2019 *[facility] ANNUAL WELLNESS VISIT 04/29/2020 *Digital Prostate Exam 12/07/2019 Future Test Test Name Order Date X ray : LS Spine 04/29/2020 LIPID PANEL WITH REFLEX TO DIRECT LDL COMPREHENSIVE METABOLIC PANEL (REFL) MAGNESIUM 05/06/2020 CBC (H/H, RBC, INDICES, WBC, PLT) 2019 C-REACTIVE PROTEIN 05/06/2020 THYROGLOBULIN ANTIBODIES 05/06/2020 HEMOGLOBIN A1c 05/06/2020 VITAMIN B12/FOLATE, SERUM PANEL 05/06/20 20 T4, FREE 05/06/2020 TSH 05/06/2020 T3, FREE 05/06/2020 VITAMIN D,25-OH,TOTAL,IA 05/06/2020 *SARS-CoV-2 IgG/IgM 05/06/2020 TSH+FREE T4 11/21/2020 LIPID PANEL WITH REFLEX TO DIRECT LDL PROTHROMBIN W/INR + PARTIAL THROMBOPLAST IN TIMES 11/21/2020 COMPREHENSIVE METABOLIC PANEL 11/21/2020 MAGNESIUM 11/21/2020 CBC (INCLUDES DIFF/PLT) 11/21/2020 C-REACTIVE PROTEIN 11/21/2020 HEMOGLOBIN A1c 11/21/2020 VITAMIN B12/FOLATE, SERUM PANEL 11/21/19 21 T3, FREE 11/21/2020 VITAMIN D,25-OH,TOTAL,IA 11/21/2020 PT/INR 03/03/2021 HS CRP 03/10/2021 HEMOGLOBIN A1c 03/10/2021 Adenosine Stress Nuclear Test 01/15/2022 ECHO 01/15/2022 CAROTID BILATERAL 01/15/2022 Insurance Providers Payer Name Payer Address Payer Phone Subscriber Number Group Number Insured Name Patient Relationship to Insured Coverage Start Date Coverage End Date [employer] [address] [address] [place] [phone] [id number] Dariel Aguilera Self - patient is the insured Medications Administered Medication Instructions Date of Administration Dosage Notes B12 01/17/2020 1 mL B12 01/23/2020 1 mL B12 01/30/2020 1 mL B12 02/06/2020 1 mL B12 02/14/2020 1 mL B12 04/15/2020 1 mL B12 2020 1 mL B12 04/29/2020 1 mL B12 09/05/2020 1 mL B12 12/19/2020 1 mL Medical (General) History Medical History History ICD Code Vitamin B12 deficiency D51.9 Vitamin D deficiency E55.9 Hyperlipidemia, unspecified E78.5 Gastroesophageal reflux disease K21.9 Type 2 diabetes mellitus with unspecifie d complications E11.8 Essential (primary) hypertension I10 Benign prostatic hyperplasia with lower urinary tract symptoms N40.1 Carpal tunnel syndrome (disorder) G56.00 Atrial fibrillation I48.91 Surgical History Surgery Date(Month/Year) Tonsillectomy cervical spinal fusion 2009 (R) carotid endarterectomy 2012 carpal tunnel release Hospitalization History Reason Date(Month/Year) cervical spinal fusion Tonsillectomy
--- OUTSIDE RECORDS SUMMARY | 2025-06-01 21:45 | XMS_ITS | CCD ---
Author Organization [facility] CliniSymn Care Team Providers Care Telephone Recorder Name Role Phone Jada Rene Unavailable Unavailable [...] Axel Serina Referring Unavailable MD Kashif Barnett Admitting [...] Unavailable Kylah Medina MD Primary Care Provider Kylah Medina Attending Unavailable Ross, Kylah E. [...] Unavailable Ross Kylah COHN Primary Care Provider [phone] HERNÁNDEZ, AXEL T Referring Unavailable HERNÁNDEZ, AXEL [...] Unavailable Ross, Kylah E. Attending Unavailable Ross, Klyah E. Attending Unavailable Ross, Kylah E. Admitting [...] Unavailable Mourany, Davie E. Attending Unavailable Ross, Kylah E. Referring Unavailable Mourany, Davie E. Attending [...] Medication Allergies] Propensity to adverse reactions (disorder) [facility] Repository Medications Current Medications Medication Drug Class(es) Dates Sig (Normalized) Sig (Original) acetaminophen 325 mg / HYDROcodone bitartrate 5 mg oral tablet (11 sources) Opioid Agonist Start: 03-20-2024 take 1 tablet by mouth every four hours as needed for pain [place] 325 mg-5 mg oral tablet See Instructions, for pain, 10 tab(s), Refill(s) 0, 1 tab(s) Oral q4hr PRN Pain. Duration 7 days., [facility]/pharmacy #[id number], 180.5, cm, 03/20/24 15:05:00 EDT, Height/Length Dosing, 82.5, kg, 03/20/24 15:05:00 EDT, Weight Dosing Start Date: 03/20/24 Status: Ordered End: 11-26-2024 HYDROcodone-acetaminophen (N orco) 5-325 MG tablet 11/26/2024 Discontinued (Therapy completed) atenolol 25 mg oral tablet (20 sources) beta-Adrenergic Dimitris Start: 05-20-2025 atenol ol 25 mg Tab See Instructions, take 1/2 tab daily, # 45 tab(s), Refills(s) 2, Pharmacy: [facility], 178.6, cm, 05/09/25 8:18:00 EDT, Height/Length Dosing, 80.6, kg, 05/09/25 8:18:00 EDT, Weight Dosing Start Date: 05/20/25 Status: Ordered Quantity: 45.0 Unit: tab(s) Repeat number: 3 Start: 10-22-2024 atenolol 25 mg Tab See Instructions, take 1/2 tab daily, # 90 tab(s), Refills(s) 1, Pharmacy: [facility], 178, cm, 09/10/24 13:01:00 EDT, Height/Length Dosing, 80.1, kg, 09/10/24 13:01:00 EDT, Weight Dosing Start Date: 10/22/24 Status: Ordered Quantity: 90.0 Unit: tab(s) Repeat number: 2 Start: 04-20-2024 atenolol 25 mg Tab See Instructions, take 1/2 tab daily, # 30 tab(s), Refills(s) 5, [id number] 180, cm, 04/20/24 13:27:00 EDT, Height/Length Dosing, 82.2, kg, 04/20/24 13:27:00 EDT, Weight Dosing Start Date: 04/20/24 Status: Ordered Start: 10-06-2015 take 1 tablet by alyssa once daily atenolol 25 mg Tab 25 mg = 1 tab(s), Oral, Daily, # 90 tab(s), Refills(s) 0, Pharmacy: [facility], 178.2, cm, 02/02/24 10:29:00 [...] Daily, # 90 tab(s), Refills(s) 1, Pharmacy: [facility], 178.6, cm, 01/24/25 13:29:00 EDT, Height/Length Dosing, 82.7, kg, 01/24/25 13:29:00 EDT, Weight Dosing Start Date: 01/29/25 Status: Ordered Quantity: 90.0 Unit: tab(s) Repeat number: 2 Start: 10-09-2014 take 1 tablet by alyssa th once daily finasteride 5 mg Tab 5 mg = 1 tab(s), Oral, Daily, # 90 tab(s), Refills(s) 1, Pharmacy: [facility]/pharmacy #[id number], 178.6, cm, 11/01/24 9:21:00 EST, Height/Length Dosing, 81.3, kg, 11/01/24 9:21:00 EST, Weight Dosing Start Date: 11/08/24 Status: Ordered Comment on above: Take 1 tablet by alyssa once daily. fluticasone propionate 0.05 mg/actuat metered dose nasal spray (14 sources) Corticosteroid Start: 08-31-2024 fluticasone Nasal 0.05 mg/inh [place] See Instructions, 48 mL, Refill(s) 1, USE 1 SPRAY IN EACH NOSTRIL TWICE A DAY, [id number], 178, cm, 08/28/24 14:50:00 EDT, Height/Length Dosing, 82.2, kg, 08/28/24 14:50:00 EDT, Weight Dosing Start Date: 08/31/24 Status: Ordered Start: 07-03-2024 take 1 spray(s) nasa l route twice daily Flonase 0.05 mg/inh [place] 1 spray(s), Nasal, BID, 16 gram, Refill(s) 0, each nostril, [facility]/pharmacy #[id number], 178, cm, 07/03/24 10:05:00 EDT, [...] Daily, # 90 cap(s), Refills(s) 1, Pharmacy: [facility], 178.6, cm, 02/05/25 13:36:00 EDT, Height/Length Dosing, 82.2, kg, 02/05/25 13:36:00 EDT, Weight Dosing Start Date: 04/25/25 Status: Ordered Quantity: 90.0 Unit: cap(s) Repeat number: 2 Start: 01-07-2025 take 1 capsule by mo [facility] once daily gabapentin 300 mg Cap 300 mg = 1 cap(s), Oral, Daily, # 90 cap(s), Refills(s) 1, Pharmacy: [facility], 178.6, cm, 12/24/24 13:13:00 EST, Height/Length Dosing, 79, kg, 12/24/24 13:13:00 EST, Weight Dosing Start Date: 01/07/25 Status: Ordered Quantity: 90.0 Unit: cap(s) Repeat number: 2 Start: 12-01-2023 take 1 capsule by [facility] once daily gabapentin 300 mg Cap 300 mg = 1 cap(s), Oral, Daily, # 90 cap(s), Refills(s) 1, Pharmacy: [facility], 178, cm, 07/03/24 10:05:00 EDT, Height/Length Dosing, 80.8, kg, 07/03/24 10:05:00 EDT, Weight Dosing Start Date: 07/03/24 Status: Ordered glimepiride 2 mg oral tablet (20 sources) Sulfonylurea Start: 02-18-2025 take 1 tablet by mouth once daily glimepiride 2 mg Tab 2 mg = 1 tab(s), Oral, Daily, # 90 tab(s), Refills(s) 1, Pharmacy: [facility], 178.6, cm, 02/05/25 13:36:00 EDT, Height/Length Dosing, 82.2, kg, 02/05/25 13:36:00 EDT, Weight Dosing Start Date: 02/18/25 Status: Ordered Quantity: 90.0 Unit: tab(s) Repeat number: 2 Start: 10-14-2014 glimepiride 2 mg Tab See Instructions, TAKE 1 TABLET DAILY, # 3 tab(s), Refills(s) 0, Pharmacy: [facility], 178, cm, 08/07/24 10:59:00 EDT, Height/Length Dosing, 78.2, kg, 08/07/24 10:59:00 EDT, Weight Dosing Start Date: 08/20/24 Status: Ordered Quantity: 3.0 Unit: tab(s) Repeat number: 1 Comment on above: Take 1 tablet by [facility] once daily. hydroCHLOROthiazide 25 mg oral tablet [...] # 90 tab(s), Refills(s) 1, Pharmacy: [facility] [id number], 178.6, cm, 02/05/25 13:36:00 EDT, Height/Length Dosing, 82.2, kg, 02/05/25 13:36:00 EDT, Weight Dosing Start Date: 03/07/25 Status: Ordered Quantity: 90.0 Unit: tab(s) Repeat number: 1 Start: 08-20-2024 Synthroid 25 m cg(0.025 mg) Tab See Instructions, TAKE 1 TABLET DAILY ON AN EMPTY STOMACH, # 3 tab(s), Refills(s) 0, Pharmacy: [facility]/pharmacy #[id number], 178, cm, 08/07/24 10:59:00 EDT, Height/Length Dosing, 78.2, kg, 08/07/24 10:59:00 EDT, Weight Dosing Start Date: 08/20/24 Status: Ordered Quantity: 3.0 Unit: tab(s) Repeat number: 1 Start: 02-13-2024 take 1 tablet by alyssa once daily levothyroxine 25 mcg (0.025 mg) Tab 25 mcg = 1 tab(s), Oral, Daily, on an empty stomach, # 90 tab(s), Refills(s) 1, Pharmacy: [facility], 178.2, cm, 02/02/24 10:29:00 [...] Daily, # 90 cap(s), Refills(s) 1, Pharmacy: [facility], 178.6, cm, 12/24/24 13:13:00 EST, Height/Length Dosing, 79, kg, 12/24/24 13:13:00 EST, Weight Dosing Start Date: 01/07/25 Status: Ordered Quantity: 90.0 Unit: cap(s) Repeat number: 2 Start: 12-01-2023 take 1 capsule by mo [facility] once daily omeprazole 40 mg Cap-DR 40 mg = 1 cap(s), Oral, Daily, # 90 cap(s), Refills(s) 1, Pharmacy: [facility], 178, cm, 08/28/24 14:50:00 EDT, Height/Length Dosing, 82.2, kg, 08/28/24 14:50:00 EDT, Weight Dosing Start Date: 08/30/24 Status: Ordered pravastatin sodium 40 mg oral tablet (20 sources) HMG-CoA Reductase Inhibitor Start: 10-09-2014 take 1 tablet by mouth once daily pravastatin 40 mg Tab 40 mg = 1 tab(s), Oral, Daily, # 90 tab(s), Refills(s) 3, Pharmacy: [facility], 178, cm, 09/10/24 13:01:00 [...] activity, # 5 tab(s), Refills(s) 0, Pharmacy: [facility], 178, cm, 07/03/24 10:05:00 [...] activity, # 5 tab(s), Refills(s) 0, Pharmacy: [facility], 178.2, cm, 02/02/24 10:29:00 [...] # 180 tab(s), Refills(s) 0, Pharmacy: [facility]/pharmacy #[id number], 178.6, cm, 05/09/25 8:18:00 EDT, Height/Length Dosing, 80.6, kg, 05/09/25 8:18:00 EDT, Weight Dosing Start Date: 05/14/25 Status: Ordered Quantity: 180.0 Unit: tab(s) Repeat number: 1 Start: 02-06-2025 Sodium Chlorid e 1 g oral tablet See Instructions, Take 1g BID daily, # 60 tab(s), Refills(s) 3, [id number] 178.6, cm, 02/05/25 13:36:00 EDT, Height/Length Dosing, 82.2, kg, 02/05/25 13:36:00 EDT, Weight Dosing Start Date: 02/06/25 Status: Ordered Quantity: 60.0 Unit: tab(s) Repeat number: 4 Start: 01-24-2025 take 1 tablet by alyssa th twice daily Sodium Chloride 1 g oral tablet See Instructions, 1 gram orally BID, # 180 tab(s), Refills(s) 0, Pharmacy: [facility], 178.6, cm, 01/24/25 13:29:00 EDT, Height/Length Dosing, 82.7, kg, 01/24/25 13:29:00 EDT, Weight Dosing Start Date: 01/24/25 Status: Ordered Start: 01-07-2025 take 1 tablet by alyssa th once daily Sodium Chloride 1 g oral tablet See Instructions, 1 gram orally daily, # 90 tab(s), Refills(s) 0, [id number] 178.6, cm, 12/24/24 13:13:00 EST, Height/Length Dosing, 79, kg, 12/24/24 13:13:00 EST, Weight Dosing Start Date: 01/07/25 Status: Ordered Start: 12-26-2024 take 1 tablet by alyssa th once daily Sodium Chloride 1 g oral tablet See Instructions, 1 gram orally daily, # 90 tab(s), Refills(s) 0, Pharmacy: [facility], 178.6, cm, 12/24/24 13:13:00 EST, Height/Length Dosing, 79, kg, 12/24/24 13:13:00 EST, Weight Dosing Start Date: 12/26/24 Status: Ordered Start: 12-17-2024 take 1 tablet by alyssa th once daily Sodium Chloride 1 g oral tablet See Instructions, 1 gram orally daily, # 90 tab(s), Refills(s) 0, Pharmacy: [facility], 178.6, cm, 12/17/24 15:05:00 EST, Height/Length Dosing, 78.5, kg, 12/17/24 15:05:00 EST, Weight Dosing Start Date: 12/17/24 Status: Ordered Start: 06-27-2024 take 1 tablet by alyssa th once daily Sodium Chloride 1 g oral tablet See Instructions, 1 gram orally daily, # 90 tab(s), Refills(s) 0, [id number] 178, cm, 06/11/24 12:53:00 EDT, [...] DAY, # 90 tab(s), Refills(s) 2, [id number], 180.5, cm, 03/20/24 15:05:00 EDT, [...] DAY, # 90 tab(s), Refills(s) 2, Pharmacy: [facility], 178.2, cm, 12/01/23 13:40:00 [...] Refill(s) 0, Take one tablet daily, [facility]/pharmacy #[id number], 178.6, cm, 11/01/24 9:21:00 EST, [...] dysfunction, # 7 tab(s), Refills(s) 0, [id number], 178.6, cm, 02/05/25 13:36:00 EDT, [...] Daily, # 90 cap(s), Refills(s) 3, Pharmacy: [facility], 178.6, cm, 02/05/25 13:36:00 EDT, Height/Length Dosing, 82.2, kg, 02/05/25 13:36:00 EDT, Weight Dosing Start Date: 05/07/25 Status: Ordered Quantity: 90.0 Unit: cap(s) Repeat number: 4 Start: 10-14-2014 take 1 capsule by [facility] once daily tamsulosin 0.4 mg Cap 0.4 mg = 1 cap(s), Oral, Daily, # 90 cap(s), Refills(s) 1, Pharmacy: [facility], 178, cm, 09/10/24 13:01:00 EDT, Height/Length Dosing, 80.1, kg, 09/10/24 13:01:00 EDT, Weight Dosing Start Date: 10/22/24 Status: Ordered Quantity: 90.0 Unit: cap(s) Repeat number: 2 Comment on above: Take 1 capsule by [facility] daily at bedtime. tiZANidine 4 mg [...] Daily, # 90 tab(s), Refills(s) 0, Pharm[facility]: [facility], 178.6, cm, 02/05/25 13:36:00 EDT, Height/Length Dosing, [...] on above: Take 1 capsule by mo [facility] twice daily. meloxicam 7.5 mg oral tablet (20 sources) Nonsteroidal Anti-inflammatory Drug Start: 04-25-2025 take 1 tablet by mouth once daily meloxicam 7.5 mg Tab 7.5 mg = 1 tab(s), Oral, Daily, TAKE 1 TABLET DAILY, # 30 tab(s), Refills(s) 2, Pharmacy: [facility], 178.6, cm, 02/05/25 13:36:00 EDT, Height/Length Dosing, 82.2, kg, 02/05/25 13:36:00 EDT, Weight Dosing Start Date: 04/25/25 Status: Ordered Quantity: 30.0 Unit: tab(s) Repeat number: 3 Start: 01-07-2025 take 1 tablet by alyssa once daily meloxicam 7.5 mg Tab 7.5 mg = 1 tab(s), Oral, Daily, TAKE 1 TABLET DAILY, # 30 tab(s), Refills(s) 2, Pharmacy: [facility], 178.6, cm, 12/24/24 13:13:00 EST, Height/Length Dosing, 79, kg, 12/24/24 13:13:00 EST, Weight Dosing Start Date: 01/07/25 Status: Ordered Quantity: 30.0 Unit: tab(s) Repeat number: 3 Start: 12-06-2024 take 1 tablet by alyssa th once daily meloxicam 7.5 mg Tab 7.5 mg = 1 tab(s), Oral, Daily, TAKE 1 TABLET DAILY, # 30 tab(s), Refills(s) 2, Pharmacy: [facility], 178.6, cm, 11/01/24 9:21:00 EST, Height/Length [...] Coronary atherosclerosis; Translations: [Atherosclerotic heart disease of [place] coronary artery without angina pectoris] Onset: 08-28-2024 [...] Long-term current use of anticoagulant; Translations: [intermediate manager (current) use of anticoagulants] Episodic Other aftercare (3 sources) [facility] (current) use of anticoagulants Episodic Other aftercare [...] vascular disease; Translations: [Atherosclerotic heart disease of [place] coronary artery without angina pectoris] Onset: 11-26-2024 [...] prostate] Onset: 11-02-2023 Unclassified (1 source) intermediate manager (current) use of anticoagulants; Translations: [MCC (current) use of anticoagulants] Onset: 06-16-2023 Unclassified [...] (Bld) [Mass fraction] 5.6 % Normal <=5.9% [facility] ChemAutoSS [id number] 05-20-2025 HbA1c (Bld) [Mass fraction] 5.6 % Normal <=5.9 [facility] Comment on above: Performed By: #### 7 [id number] #### [facility] [address] [place] [address] Lipid Panelon 05-20-2025 Cholesterol [Mass/Vol] 150 mg/dL Normal 120-200 [facility] Comment on above: Performed By: #### 2 [id number] #### [facility] [address] [place] [address] Cholesterol in HDL [Mass/Vol] 57 mg/dL Invalid Interpretation Code [facility] Comment on above: Result Comment: '>= 60 LOW RISK' '<= 40 HIGH RISK' Performed By: #### 2 [id number] #### [facility] [address] [place] [address] Cholesterol in LDL [Mass/Vol] 77 mg/dL Normal <=129 [facility] Comment on above: Performed By: #### 2 [id number] #### [facility] [address] [place] [address] Cholesterol in VLDL [Mass/Vol] 11 mg/dL Normal 7-40 [facility] Comment on above: Performed By: #### 2 [id number] #### [facility] [address] [place] [address] Triglyceride [Mass/Vol] 53 mg/dL Normal <=149 [facility] Comment on above: Performed By: #### 2 [id number] #### [facility] [address] [place] [address] U MA/Cr Ratioon 05-20-2025 Microalb/Cr Ratio NOT CALCULATED Invalid Interpretation Code .0-30.0 [facility] Comment on above: Result Comment: 30-3 00 mg/g Cr indicates an increased risk for diabetic nephropathy. >300 mg/g Cr is consistent with clinical nephropathy. Performed By: #### 1 [id number] #### [facility] [address] [place] [address] U Creatinine 62.9 mg/dL Invalid Interpretation Code [facility] Comment on above: Performed By: #### 1 [id number] #### [facility] [address] [place] [address] U Microalb <0.7 Normal 0.0-1.9 [facility] Comment on above: Performed By: #### 1 [id number] #### [facility] [address] [place] [address] Ambulatory Visit Summaryon 0 05-09-2025 Ambulatory Visit [...] Appointments Tuesday 8:20 AM EDT With: Where: [address] [address]- Tuesday 10:40 AM EDT With: YANIQUE CHAMBERS CNP Where: [address] [address]- Tuesday2025 8:00 AM EDT With: Where: [address] [address]- You Need to Complete the Following HgbA1c, [...] Capsules By Mouth Every day Pickup at [facility] Unchanged Turmeric (Turmeric 500 mg oral capsule) 1 Capsules By Mouth Every day as needed for Prophylaxis Unchanged ubiquinone (CoQ10) See instructions Unchanged warfarin (warfarin 5 mg Tab) 1 Tablets By Mouth Every day Pharmacy Information [facility]: [address] [facility] ANDERSON Cristobal [phone] Allergies No Known Medication Allergies Problems Ongoing [...] in a (more content not included)... Normal [facility]/Cl[facility] c Noteon 05-09-2025 Family [...] of clutter to prevent tripping and/or falling. [place] Advance Directives reviewed, at home. Encouraged to [...] patient requests, he will have completed at [facility] prior to next PCP visit. Colonoscopy screenings [...] Voices understandin (more content not included)... Normal [facility] Comment on above: Result Comment: Elec tronically [...] Follow-Up Appointments 2024 8:00 AM EDT Where: [place] [id number]- Medications What How Much When Instructions Unchanged [...] for choosing us for your care. Normal [facility] BMPon 02-05-2025 Anion gap [Moles/Vol] 8 mmol/L Normal 6-16 [facility] Comment on above: Performed By: #### 2 [id number] #### [facility] [address] [place] [address] Calcium [Mass/Vol] 8.8 mg/dL Low 8.9-11.1 [facility] Comment on above: Performed By: #### 2 [id number] #### [facility] [address] [place] [address] Chloride [Moles/Vol] 99 mmol/L Low 101-111 [facility] Comment on above: Performed By: #### 2 [id number] #### [facility] [address] [place] [address] CO2 [Moles/Vol] 28 mmol/L Normal 21-31 [facility] Comment on above: Performed By: #### 2 [id number] #### [facility] [address] [place] [address] Creatinine [Mass/Vol] 1.0 mg/dL Normal 0.5-1.3 [facility] Comment on above: Performed By: #### 2 [id number] #### [facility] [address] [place] [address] Glucose [Mass/Vol] 104 mg/dL Normal 55-199 [facility] Comment on above: Performed By: #### 2 [id number] #### [facility] [address] [place] [address] Potassium [Moles/Vol] 4.2 mmol/L Normal 3.5-5.3 [facility] Comment on above: Performed By: #### 2 [id number] #### [facility] [address] [place] [address] Sodium [Moles/Vol] 131 mmol/L Low 135-145 [facility] Comment on above: Performed By: #### 2 [id number] #### [facility] [address] [place] [address] Urea nitrogen [Mass/Vol] 13 mg/dL Normal 5-21 [facility] Comment on above: Performed By: #### 2 [id number] #### [facility] [address] [place] [address] Urea nitrogen/Creatinine [Mass ratio] 13 No Units Normal 10-20 [facility] Comment on above: Performed By: #### 2 [id number] #### [facility] [address] [place] [address] CHEMISTRYOrdered By: SYSTEM SYSTEM on 02-05-2025 Anion [...] reports as effective. Ongoing follow-up with a bead wrapper is planned for later in February. The [...] confirmation of an upcoming appointment with a bead wrapper later in February to further assess their [...] mcg(0.025 mg) (more content not included)... Normal [facility] Comment on above: Result Comment: Elec tronically Signed By: Adam COHN, Kylah Lopez.br\Date and Time Signed: 02/05/25 13:47 EDT eGFRon 02-05-2025 eGFR 75 mL/min/1.73 m2 Normal >=59 [facility] Comment on above: Performed By: #### 1 [id number] #### [facility] [address] [place] [address] Ambulatory Visit Summaryon 0 01-24-2025 Ambulatory Visit [...] PM EDT With: Kylah Medina MD Where: [address] [address] 2024 8:00 AM EDT With: Where: [address] [address]- Medications What How Much When Instructions Changed sodium chloride (Sodium Chloride 1 g oral tablet) See instructions 1 gram orally BID Pickup at [facility] Unchanged atenolol (atenolol 25 mg Tab) [...] physician if questions or concerns [facility] [address] [facility] ANDERSON Cristobal [phone] Allergies No Known Medication Allergies Problems Ongoing [...] in adult (more content not included)... Normal [facility] BMPon 01-24-2025 Anion gap [Moles/Vol] 9 mmol/L Normal -16 [facility] Comment on above: Performed By: #### 2 [id number] #### [facility] [address] [place] [address] Calcium [Mass/Vol] 8.8 mg/dL Low 8.9-11.1 [facility] Comment on above: Performed By: #### 2 [id number] #### [facility] [address] [place] [address] Chloride [Moles/Vol] 98 mmol/L Low 101-111 [facility] Comment on above: Performed By: #### 2 [id number] #### [facility] [address] [place] [address] CO2 [Moles/Vol] 27 mmol/L Normal 21-31 [facility] Comment on above: Performed By: #### 2 [id number] #### [facility] [address] [place] [address] Creatinine [Mass/Vol] 1.0 mg/dL Normal 0.5-1.3 [facility] Comment on above: Performed By: #### 2 [id number] #### [facility] [address] [place] [address] Glucose [Mass/Vol] 114 mg/dL Normal 55-199 [facility] Comment on above: Performed By: #### 2 [id number] #### [facility] [address] [place] [address] Potassium [Moles/Vol] 4.5 mmol/L Normal 3.5-5.3 [facility] Comment on above: Performed By: #### 2 [id number] #### [facility] [address] [place] [address] Sodium [Moles/Vol] 129 mmol/L Low 135-145 [facility] Comment on above: Performed By: #### 2 [id number] #### [facility] [address] [place] [address] Urea nitrogen [Mass/Vol] 12 mg/dL Normal 5-21 [facility] Comment on above: Performed By: #### 2 [id number] #### [facility] [address] [place] [address] Urea nitrogen/Creatinine [Mass ratio] 12 No Units Normal 10-20 [facility] Comment on above: Performed By: #### 2 [id number] #### [facility] [address] [place] [address] CHEMISTRYOrdered By: SYSTEM SYSTEM on 01-24-2025 Anion [...] wear the damaged aids, requiring a future internet media planner visit to resolve this issue. Moreover, the patient is under management for hypothyroidism, consistently taking his prescribed thyroid medication as directed. He denies experiencing notable symptoms of hypothyroidism, such as coldness or heightened fatigue. His reported increased daytime sleep appears to be associated more with lifestyle factors than with hypothyroidism. - Monitoring and follow-up for hyponatremia through scheduled nephrology appointment. - Anticipated internet media planner visit for hearing aid assessment and repair [...] The patient will follow up with a bead wrapper for further evaluation and management of hyponatremia. We will adjust the sodium supplementation based on the upcoming lab results. Ordered: Basic Metabolic Panel Lab Specimen Collect [id number] TSH With T4fr Reflex 5. 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 An appointment with an appropriate internet media planner has been planned to assess and replace [...] ensure therap (more content not included)... Normal [facility] Comment on above: Result Comment: Elec tronically Signed By: Adam COHN, Kylah Lopez.br\Date and Time Signed: 01/24/25 14:16 EDT TSH With T4fr Reflexon 01-24 TSH Qn 2.69 m[IU]/L Normal 0.34-5.60 [facility] Comment on above: Performed By: #### 1 [id number] #### [facility] [address] [place] [address] eGFRon 01-24-2025 eGFR 75 mL/min/1.73 m2 Normal >=59 [facility] Comment on above: Performed By: #### 1 [id number] #### [facility] [address] [place] [address] Population Healthon 01-15-20 [facility] Case Information Case Priority: None Programs: -- Referral Source: Nursing Director Referral Reason: Care coordination Case Type: Transition [...] tcm note. Created By: Alec Rodrigez Normal [facility] BMPon 01-09-2025 Anion gap [Moles/Vol] 9 mmol/L Normal 6-16 [facility] Comment on above: Performed By: #### 2 [id number] #### [facility] [address] [place] [address] Calcium [Mass/Vol] 9.0 mg/dL Normal 8.9-11.1 [facility] Comment on above: Performed By: #### 2 [id number] #### [facility] [address] [place] [address] Chloride [Moles/Vol] 93 mmol/L Low 101-111 [facility] Comment on above: Performed By: #### 2 [id number] #### [facility] [address] [place] [address] CO2 [Moles/Vol] 27 mmol/L Normal 21-31 [facility] Comment on above: Performed By: #### 2 [id number] #### [facility] [address] [place] [address] Creatinine [Mass/Vol] 0.8 mg/dL Normal 0.5-1.3 [facility] Health Comment on above: Performed By: #### 2 [id number] #### [facility] [address] [place] [address] Glucose [Mass/Vol] 110 mg/dL Normal 55-199 [facility] Comment on above: Performed By: #### 2 [id number] #### [facility] [address] [place] [address] Potassium [Moles/Vol] 4.1 mmol/L Normal 3.5-5.3 [facility] Comment on above: Performed By: #### 2 [id number] #### [facility] [address] [place] [address] Sodium [Moles/Vol] 125 mmol/L Low 135-145 [facility] Comment on above: Performed By: #### 2 [id number] #### [facility] [address] [place] [address] Urea nitrogen [Mass/Vol] 12 mg/dL Normal 5-21 [facility] Comment on above: Performed By: #### 2 [id number] #### [facility] [address] [place] [address] Urea nitrogen/Creatinine [Mass ratio] 15 No Units Normal 10-20 [facility] Comment on above: Performed By: #### 2 [id number] #### [facility] [address] [place] [address] CHEMISTRYOrdered By: SYSTEM SYSTEM on 01-09-2025 Anion [...] 01-09-2025 eGFR 88 mL/min/1.73 m2 Normal >=59 [facility] Comment on above: Performed By: #### 1 [id number] #### [facility] [address] [place] [address] [facility] 01-07-20 [facility] Case Information Case Priority: None Programs: -- Referral Source: Nursing Director Referral Reason: Care coordination Case Type: Transition [...] changes as of 01-12, he'll be with [facility] Medicare. Patient has medication refill request, [...] tcm note. Created By: Alec Rodrigez Normal [facility] BMPon 12-31-2024 Anion gap [Moles/Vol] 10 mmol/L Normal 6-16 [facility] Comment on above: Performed By: #### 2 [id number] #### [facility] [address] [place] [address] Calcium [Mass/Vol] 9.3 mg/dL Normal 8.9-11.1 [facility] Comment on above: Performed By: #### 2 [id number] #### [facility] [address] [place] [address] Chloride [Moles/Vol] 95 mmol/L Low 101-111 [facility] Comment on above: Performed By: #### 2 [id number] #### [facility] [address] [place] [address] CO2 [Moles/Vol] 27 mmol/L Normal 21-31 [facility] Comment on above: Performed By: #### 2 [id number] #### [facility] [address] [place] [address] Creatinine [Mass/Vol] 0.8 mg/dL Normal 0.5-1.3 [facility] Comment on above: Performed By: #### 2 [id number] #### [facility] [address] [place] [address] Glucose [Mass/Vol] 90 mg/dL Normal 55-199 [facility] Comment on above: Performed By: #### 2 [id number] #### [facility] [address] [place] [address] Potassium [Moles/Vol] 4.3 mmol/L Normal 3.5-5.3 [facility] Comment on above: Performed By: #### 2 458015 #### [facility] [address] [place] [address] Sodium [Moles/Vol] 128 mmol/L Low 135-145 [facility] Comment on above: Performed By: #### 2 107874 #### [facility] [address] [place] [address] Urea nitrogen [Mass/Vol] 13 mg/dL Normal 5-21 [facility] Comment on above: Performed By: #### 2 [id number] #### [facility] [address] [place] [address] Urea nitrogen/Creatinine [Mass ratio] 16 No Units Normal 10-20 [facility] Comment on above: Performed By: #### 2 [id number] #### [facility] [address] [place] [address] CHEMISTRYOrdered By: SYSTEM SYSTEM on 12-31-2024 Anion [...] 12-31-2024 eGFR 88 mL/min/1.73 m2 Normal >=59 [facility] Comment on above: Performed By: #### 1 [id number] #### [facility] [address] [place] [address] Family Medicine Office/Clini c Noteon 12-24-2024 Family [...] changes. We (more content not included)... Normal [facility] Comment on above: Result Comment: Elec tronically Signed By: Kylah Medina MD\.br\Date and Time Signed: 12/24/24 13:31 [facility] 12-24-19 [facility] Case Information Case Priority: None Programs: -- Referral Source: Nursing Director Referral Reason: Care coordination Case Type: Transition [...] tcm note. Created By: Alec Rodrigez Normal [facility] BMPon 12-18-2024 Anion gap [Moles/Vol] 10 mmol/L Normal 6-16 [facility] Comment on above: Performed By: #### 2 [id number] #### [facility] [address] [place] [address] Calcium [Mass/Vol] 9.1 mg/dL Normal 8.9-11.1 [facility] Comment on above: Performed By: #### 2 [id number] #### [facility] [address] [place] [address] Chloride [Moles/Vol] 98 mmol/L Low 101-111 [facility] Comment on above: Performed By: #### 2 103706 #### [facility] [address] [place] [address] CO2 [Moles/Vol] 27 mmol/L Normal 21-31 [facility] Comment on above: Performed By: #### 2 123046 #### [facility] [address] [place] [address] Creatinine [Mass/Vol] 0.9 mg/dL Normal 0.5-1.3 [facility] Comment on above: Performed By: #### 2 172393 #### [facility] [address] [place] [address] Glucose [Mass/Vol] 113 mg/dL Normal 55-199 [facility] Comment on above: Performed By: #### 2 [id number] #### [facility] [address] [place] [address] Potassium [Moles/Vol] 3.9 mmol/L Normal 3.5-5.3 [facility] Comment on above: Performed By: #### 2 163421 #### [facility] [address] [place] [address] Sodium [Moles/Vol] 131 mmol/L Low 135-145 [facility] Comment on above: Performed By: #### 2 038083 #### [facility] [address] [place] [address] Urea nitrogen [Mass/Vol] 10 mg/dL Normal 5-21 [facility] Comment on above: Performed By: #### 2 987102 #### [facility] [address] [place] [address] Urea nitrogen/Creatinine [Mass ratio] 11 No Units Normal 10-20 [facility] Comment on above: Performed By: #### 2 397854 #### [facility] [address] [place] [address] eGFRon 12-18-2024 eGFR 85 mL/min/1.73 m2 Normal >=59 [facility] Comment on above: Performed By: #### 1 [id number] #### [facility] [address] [place] [address] Family Medicine Office/Clini c Noteon 12-17-2024 Family Medicine Office/Clinic Note Family Medicine Office/Clinic Note Chief Complaint ER follow up Confusion and persistent fatigue post-discharge with a concern for recurrent hyponatremia HPI Staff Pt presents today for ER follow up. Hospital: [facility] Visit date:12/14/24 Symptoms the patient presented with: [...] up with Nephrology. Ordered: Basic Metabolic Panel [facility] External Ambulatory Referral 2. 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 Ordered: Basic Metabolic Panel [facility] External Ambulatory Referral 3. Longstanding persistent atrial fibrillation (I48.11: Longstanding persistent atrial fibrillation) Maintain current management regime, evaluate rhythm control, and anticoagulation status during follow-up visits. Ordered: Basic Metabolic Panel [facility] External Ambulatory Referral 4. Hyponatremia (E87.1: Hypo-osmolality and hyponatremia) Continue monitoring sodium levels closely, with recommended nephrology review for stabilization strategy. No significant lifestyle factors contributing to sodium imbalance noted. Ordered: Basic Metabolic Panel [facility] External Ambulatory Referral 5. Hypothyroid (E03.9: Hypothyroidism, unspecified) Monitor thyroid levels to ensure therapeutic levels are maintained, adjust medications if indicated by lab abnormalities. Ordered: Basic Metabolic Panel [facility] External Ambulatory Referral 6. Nonsmoker (Z78.9: Other specified health status) Please continue to not smoke. Ordered: Basic Metabolic Panel Orders: fluticasone nasal, See Instructions, 48 mL, Refill(s) 1, USE 1 SPRAY IN EACH NOSTRIL TWICE A DAY, [facility], 178, cm, 08/28/24 14:50:00 EDT, Height/Length Dosing, 82.2, kg, 08/28/24 14:50:00 EDT, Weight Dosing sodium chloride, See Instructions, 1 gram orally daily, # 90 tab(s), Refills(s) 0, Pharmacy: [facility], 178.6, cm, 12/17/24 15:05:00 EST, Height/Length Dosing, 78.5, kg, 12/17/24 15: (more content not included)... Normal [facility] Comment on above: Result Comment: Elec tronically Signed By: Adam COHN, Kylah Lopez.br\Date and Time Signed: 12/17/24 15:29 EST [facility] 12-17-19 [facility] Case Information Case Priority: None Programs: -- Referral Source: Nursing Director Referral Reason: Care coordination Case Type: Transition [...] Daily, 1 refills fluticasone Nasal 0.05 mg/inh [place], See Instructions, Self Directed gabapentin 300 mg [...] Care Plan Progress Note Admit Date: 12/14/24 [facility] Date of Discharge: 12/15/24 Follow-up appointment scheduled? [...] cold wea (more content not included)... Normal [facility] Main OR Intraoperative Recor don 11-20-2024 Main OR Intraoperative Record Main OR Intraoperative Record IntraOp Document Type FT Summary Primary Physician: Axel Hernández DO Finalized Date/Time: 11/20/24 07:56:52 Pt. Name: DARIEL ZABALA/Sex: 1940 Male Med Rec #: [id number] Physician: Axel Hernández DO Financial #: [id number] Pt. Type: A Room/Bed: [place] [address] Admit/Disch: 11/19/24 09:28:12 - 11/19/24 14:30:00 Institution: [...] W Role Performed JULIETA Surgeon - Primary FROG OR OYSTER FARMWORKER/SA Time In 11/19/24 12:10:00 11/19/24 12:23:00 11/19/24 12:10:00 Time Out 11/19/24 12:37:00 11/19/24 12:35:00 11/19/24 12:37:00 Procedure CARPAL TUNNEL CARPAL TUNNEL CARPAL TUNNEL RELEASE(Left) RELEASE(Left) RELEASE(Left) Comments DR LOU SUPERVISING Last Modified By: Ambrocio Borges Terry T Sweene, Terry T 11/19/24 12:45:19 11/19/24 12:53:03 11/19/24 12:45:19 Entry 4 Entry 5 Case Attendee Ambrocio Borges Laura C Role Performed City Tax Auditor - Primary Scrub - Primary Time In [...] CRNA, Given Participants Edgar DO, Giana Lobato FROG OR OYSTER FARMWORKER, Rudy Woodward Laura C, Ambrocio Borges Time [...] and tissue Entry 1 Skin Integrity Intact, [place], Warm, & Skin Abnormality No Dry Outcomes [...] Hand Ta (more content not included)... Normal [facility] Operative Reporton Operative Report Operative Report SURGERY [...] Satisfactory Axel Hernández D.O. ca Dictated: 11/19/2024 [id number] Transcribed: 11/19/2024 cc:Kylah Medina M.D. Normal [facility] Comment on above: Result Comment: Elec tronically Signed By: Axel Hernández DO\.br\Date and Time Signed: 11/20/24 16:36 EST BMPon 11-19-2024 Anion gap [Moles/Vol] 10 mmol/L Normal 6-16 [facility] Comment on above: Order Comment: To be drawn day of surgery. Performed By: #### 2 [id number] #### [facility] [address] [place] [address] Calcium [Mass/Vol] 9.2 mg/dL Normal 8.9-11.1 [facility] Comment on above: Order Comment: To be drawn day of surgery. Performed By: #### 2 [id number] #### [facility] [address] [place] [address] Chloride [Moles/Vol] 98 mmol/L Low 101-111 [facility] Comment on above: Order Comment: To be drawn day of surgery. Performed By: #### 2 [id number] #### [facility] [address] [place] [address] CO2 [Moles/Vol] 26 mmol/L Normal 21-31 [facility] Comment on above: Order Comment: To be drawn day of surgery. Performed By: #### 2 [id number] #### [facility] [address] [place] [address] Creatinine [Mass/Vol] 0.9 mg/dL Normal 0.5-1.3 [facility] Comment on above: Order Comment: To be drawn day of surgery. Performed By: #### 2 [id number] #### [facility] [address] [place] [address] Glucose [Mass/Vol] 77 mg/dL Normal 55-199 [facility] Comment on above: Order Comment: To be drawn day of surgery. Performed By: #### 2 [id number] #### [facility] [address] [place] [address] Potassium [Moles/Vol] 4.2 mmol/L Normal 3.5-5.3 [facility] Comment on above: Order Comment: To be drawn day of surgery. Performed By: #### 2 756197 #### [facility] [address] [place] [address] Sodium [Moles/Vol] 130 mmol/L Low 135-145 [facility] Comment on above: Order Comment: To be drawn day of surgery. Performed By: #### 2 195749 #### [facility] [address] [place] [address] Urea nitrogen [Mass/Vol] 8 mg/dL Normal 5-21 [facility] Comment on above: Order Comment: To be drawn day of surgery. Performed By: #### 2 [id number] #### [facility] [address] [place] [address] Urea nitrogen/Creatinine [Mass ratio] 9 No Units Low 10-20 [facility] Comment on above: Order Comment: To be drawn day of surgery. Performed By: #### 2 [id number] #### [facility] [address] [place] [address] CHEMISTRYOrdered By: Lab ROP User on 11-19-2024 Glucose [Mass/Vol] 78 mg/dL Normal 55 - 99 mg/dL [facility] C POC Subsection Comment on above: Result Comment: Hilary danna Meter POC Username MAYA SOTELO Invalid Interpretation Code [facility] POC Subsection Sodium [Moles/Vol] [id number] mmol/L Invalid Interpretation Code [facility] POC Subsection Sodium [Moles/Vol] [id number] mmol/L Invalid Interpretation Code [facility] POC Subsection CHEMISTRYOrdered By: SYSTEM SYSTEM on [...] 38.5 s High 25.1 - 36.5 second(s) [facility] Auto Coag Comment on above: Interpretive Data: [...] the same coagulation reagent and instrumentation as [facility]. Currently there are no coagulation studies available worldwide for children to 14 days, and no normal ranges. Heparin therapeutic range (represented by Anti-Factor Xa activity of 0.2 - 0.4 U/mL) corresponds to PTT of 56.6 - 109.0 sec. INR Coag (PPP) [Relative time] 1.11 {INR} Invalid Interpretation Code [facility] Auto [employer] Comment on above: Interpretive Data: I NR results are specifically intended to assess patients stabilized on long-term Anticoagulation therapy suggested INR s Less Intensive Anticoagulation 2.0 3.0 Conventional Range 3.0 4.5 PT Coag (PPP) [Time] 12.5 s Normal 9.4 - 1 2.5 second(s) [facility] Auto Coag Comment on above: Interpretive Data: [...] the same coagulation reagent and instrumentation as [facility]. Currently there are no coagulation studies available worldwide for children to 14 days, and no normal ranges. Capillary Glucose POCon -0 Glucose [Mass/Vol] 78 mg/dL Normal 55-99 [facility] Comment on above: Result Comment: Hilary merinod Meter Performed By: #### 2 [id number] #### [facility] [address] [place] [address] Discharge Instructionson Discharge Instructions Discharge Instructions CLIFFORDKassi [...] Clinic 2024 8:00 AM EDT With: Where: [address] [address]- New Follow Up Appointments after Discharge Follow Up with GORDO Weller When: 11/28/2024 01:00 PM EST Comments: Keep scheduled appointment. Call for any problems. Where: [address] [place] [id number]- Grokr (1) Medications What How Much When Instructions [...] fluticasone nasal (fluticasone Nasal 0.05 mg/ inh [place]) See instructions USE 1 SPRAY IN EACH [...] Allergies No Known Medication Allergies Education Materials [place] [place] [facility] CARPAL TUNNEL RELEASE INSTRUCTIONS [...] if the (more content not included)... Normal [facility] Comment on above: Result Comment: Elec tronically Signed By: Dirk KHAN, Maya Ott\.br\Date and Time Signed: 11/19/24 13:12 EST [facility] CAPILLARY GLUCOSE POCon 11-19-2024 Glucose [Mass/Vol] 78 mg/dL 55 - 99 mg/dL [facility] Comment on above: Cleaned Meter Original Ordering Provider: DO Axel Hernández [facility] Main OR PACU I Recordon Main OR PACU I Record Main OR PACU I Record PACU Phase I Document Type FT Summary Primary Physician: Axel Hernández DO Finalized Date/Time: 11/19/24 13:24:52 Pt. Name: DARIEL ZABALA D.O.B./Sex: 1940 Male Med Rec #: [id number] Physician: Axel Hernández DO Financial #: [id number] Pt. Type: A Room/Bed: Admit/Disch: 11/19/24 09:28:12 [...] 13:24 Vicki Sethi RN 11/19/24 13:24 Normal [facility] Main OR PACU II Recordon Main OR PACU II Record Main OR PACU II Record PACU Phase II Document Type FT Summary Primary Physician: Axel Hernández DO Finalized Date/Time: 11/19/24 14:27:02 Pt. Name: DARIEL ZABALA/Sex: 1940 Male Med Rec #: [id number] Physician: Axel Hernández DO Financial #: [id number] Pt. Type: A Room/Bed: [facility] Admit/Disch: 11/19/24 09:28:12 - Institution: Case [...] By: Maya Sotelo RN 11/19/24 14:27 Normal [facility] Main OR Preoperative Recordo n 11-19-2024 Main OR Preoperative Record Main OR Preoperative Record PreOp Document Type FT Summary Primary Physician: Axel Hernández DO Finalized Date/Time: 11/19/24 12:53:23 Pt. Name: DARIEL ZABALA/Sex: 1940 Male Med Rec #: [id number] Physician: Axel Hernández DO Financial #: [id number] Pt. Type: A Room/Bed: [facility] Admit/Disch: 11/19/24 09:28:12 - Institution: Case [...] 11/19/24 12:53 Ambrocio Borges 11/19/24 12:53 Normal [facility] PT & PTTon 11-19-2024 aPTT Coag (PPP) [Time] 38.5 second(s) High 25.1-36.5 [facility] Comment on above: Result Comment: Para meter [...] the same coagulation reagent and instrumentation as [facility]. Currently there are no coagulation studies available worldwide for children to 14 days, and no normal ranges. Heparin therapeutic range (represented by Anti-Factor Xa activity of 0.2 - 0.4 U/mL) corresponds to PTT of 56.6 - 109.0 sec. Performed By: #### 1 [id number] #### [facility] [address] [place] [address] INR Coag (PPP) [Relative time] 1.11 {INR} Invalid Interpretation Code [facility] Comment on above: Result Comment: INR results are specifically intended to assess patients stabilized on long-term Anticoagulation therapy suggested INR???s ???Less Intensive Anticoagulation??? 2.0 ??? 3.0 Conventional Range 3.0 ??? 4.5 Performed By: #### 1 [id number] #### [facility] [address] [place] [address] PT Coag (PPP) [Time] 12.5 second(s) Normal 9.4-12.5 [facility] Comment on above: Result Comment: 15 d [...] the same coagulation reagent and instrumentation as [facility]. Currently there are no coagulation studies available worldwide for children to 14 days, and no normal ranges. Performed By: #### 1 [id number] #### [facility] [address] [place] [address] eGFRon 11-19-2024 eGFR 85 mL/min/1.73 m2 Normal >=59 [facility] Comment on above: Performed By: #### 1 [id number] ####[facility] [address] [place] [address] BMPon 11-12-2024 Anion gap [Moles/Vol] 7 mmol/L Normal 6-16 [facility] Comment on above: Performed By: #### 2 [id number] #### [facility] [address] [place] [address] Calcium [Mass/Vol] 8.8 mg/dL Low 8.9-11.1 [facility] Comment on above: Performed By: #### 2 [id number] #### [facility] [address] [place] [address] Chloride [Moles/Vol] 97 mmol/L Low 101-111 [facility] Comment on above: Performed By: #### 2 [id number] #### [facility] [address] [place] [address] CO2 [Moles/Vol] 28 mmol/L Normal 21-31 [facility] Comment on above: Performed By: #### 2 [id number] #### [facility] [address] [place] [address] Creatinine [Mass/Vol] 0.9 mg/dL Normal 0.5-1.3 [facility] Comment on above: Performed By: #### 2 [id number] #### [facility] [address] [place] [address] Glucose [Mass/Vol] 106 mg/dL Normal 55-199 [facility] Comment on above: Performed By: #### 2 032801 #### [facility] [address] [place] [address] Potassium [Moles/Vol] 4.4 mmol/L Normal 3.5-5.3 [facility] Comment on above: Performed By: #### 2 449652 #### [facility] [address] [place] [address] Sodium [Moles/Vol] 128 mmol/L Low 135-145 [facility] Comment on above: Performed By: #### 2 979503 #### [facility] [address] [place] [address] Urea nitrogen [Mass/Vol] 12 mg/dL Normal 5-21 [facility] Comment on above: Performed By: #### 2 620262 #### [facility] [address] [place] [address] Urea nitrogen/Creatinine [Mass ratio] 13 No Units Normal 10-20 [facility] Comment on above: Performed By: #### 2 [id number] #### [facility] [address] [place] [address] CHEMISTRYOrdered By: SYSTEM SYSTEM on 11-12-2024 Anion [...] (Bld) [Mass fraction] 5.4 % Normal <=5.9% [facility] Chem[employer] [id number] 11-12-2024 HbA1c (Bld) [Mass fraction] 5.4 % Normal <=5.9 [facility] Comment on above: Performed By: #### 7 [id number] #### [facility] [address] [place] [address] Inpatient Patient Summaryon 11-12-2024 Inpatient Patient Summary Inpatient Patient Summary [address] [address] [facility] Clinical Discharge Instructions PERSON INFORMATION Name: DARIEL ZABALA PHYSICIANS Admitting Physician: Axel Hernández DO Attending Physician: Axel Hernández DO PCP: Kylah Medina MD Discharge Diagnosis: Carpal tunnel syndrome on left Comment: PATIENT EDUCATION INFORMATION Instructions: Edgar Gonzalez Carpal Tunnel Release Instructions (Custom) (CUSTOM) Medication Leaflets: Follow up: With: Address: When: Axel Hernández [address] [place] [address] Grokr (1) Comments: Keep scheduled appointment Type Location Start [facility] Surgery [facility] Surgical Services 11/19/2024 2:15 PM 11/19/2024 2:45 PM Confirmed Cardiology Follow Up (FT) [facility] 12/12/2024 10:15 AM 12/12/2024 10:30 AM Confirmed Medicare Wellness Subsequent [facility] [place] 05/02/2025 8:00 AM 05/02/2025 9:00 AM Confirmed [...] 1. fluticasone nasal (fluticasone Nasal 0.05 mg/inh [place]) USE 1 SPRAY IN EACH NOSTRIL TWICE [...] Tablets By Mouth every day. Comment: Normal [facility] Outpatient Surgery Discharge Instructionon 11-12-2024 Outpatient Surgery Discharge Instruction Outpatient Surgery Discharge Instruction [address] [address] Patient Discharge Instructions PERSON INFORMATION [...] Follow up: With: Address: When: Axel Hernández [address] [place] [address] Grokr (1) Comments: Keep scheduled appointment Type Location Start [facility] Surgery FT [facility] Surgical Services 11/19/2024 2:15 PM 11/19/2024 2:45 PM Confirmed Cardiology Follow Up (FT) FT.Cardiology Clinic 12/12/2024 10:15 AM 12/12/2024 10:30 AM Confirmed Medicare Wellness Subsequent [facility] Jackie 05/02/2025 8:00 AM 05/02/2025 9:00 [...] to serve you. Thank you for choosing [facility] HERE ARE THE MEDICATION CHANGES THAT [...] 1. fluticasone nasal (fluticasone Nasal 0.05 mg/inh [place]) USE 1 SPRAY IN EACH NOSTRIL TWICE [...] Mouth every day. PATIENT EDUCATION INFORMATION Instructions: [place] [place] [facility] CARPAL TUNNEL RELEASE INSTRUCTIONS Post-Operative Week One You will be in a soft dressing from mid palm to forearm. Please remove dressing two days after surgery. At that point, clean daily with peroxide or betadine and place daily fresh bandaids. Cover for showers with waterproof bandaid, op site occlusive dressing (more content not included)... Normal [facility] TSH With T4fr Reflexon 11-12 TSH Qn 2.17 m[IU]/L Normal 0.34-5.60 [facility] Comment on above: Performed By: #### 1 [id number] #### [facility] [address] [place] [address] eGFRon 11-12-2024 eGFR 85 mL/min/1.73 m2 Normal >=59 [facility] Comment on above: Performed By: #### 1 [id number] #### [facility] [address] [place] [address] Ambulatory Visit Summaryon 1 01-02-2024 Ambulatory Visit [...] Tab) fluticasone nasal (fluticasone Nasal 0.05 mg/inh [place]) gabapentin (gabapentin 300 mg Cap) glimepiride (glimepiride [...] Appointments Tuesday 9:20 AM EST With: Where: [address] [id number]- Tuesday 2:15 PM EST With: Where: [facility] Surgical Services Tuesday 10:15 AM EST With: Dixon Dubose PA-C Where: Cardiology Clinic 2024 8:00 AM EDT With: Where: [address] [id number]- Medications What How Much When Instructions Unchanged [...] fluticasone nasal (fluticasone Nasal 0.05 mg/ inh [place]) See instructions USE 1 SPRAY IN EACH [...] choosing us for your care. Normal [facility] Family Medicine Office/Clini c Noteon [...] cardiovascular disease) (I25.10: Atherosclerotic heart disease of [place] coronary artery without angina pectoris) Denies CP. [...] Recent) 3074 (more content not included)... Normal [facility] Comment on above: Result Comment: Elec tronically Signed By: Adam COHN, Kylah Lopez.br\Date and Time Signed: 11/01/24 09:42 EST BMPon 10-30-2024 Anion gap [Moles/Vol] 11 mmol/L Normal 6-16 [facility] Comment on above: Performed By: #### 2 [id number] #### [facility] [address] [place] [address] Calcium [Mass/Vol] 9.0 mg/dL Normal 8.9-11.1 [facility] Comment on above: Performed By: #### 2 [id number] #### [facility] [address] [place] [address] Chloride [Moles/Vol] 96 mmol/L Low 101-111 [facility] Comment on above: Performed By: #### 2 [id number] #### [facility] [address] [place] [address] CO2 [Moles/Vol] 27 mmol/L Normal 21-31 [facility] Comment on above: Performed By: #### 2 [id number] #### [facility] [address] [place] [address] Creatinine [Mass/Vol] 0.9 mg/dL Normal 0.5-1.3 [facility] Comment on above: Performed By: #### 2 [id number] #### [facility] [address] [place] [address] Glucose [Mass/Vol] 87 mg/dL Normal 55-199 [facility] Comment on above: Performed By: #### 2 [id number] #### [facility] [address] [place] [address] Potassium [Moles/Vol] 4.7 mmol/L Normal 3.5-5.3 [facility] Comment on above: Performed By: #### 2 [id number] #### [facility] [address] [place] [address] Sodium [Moles/Vol] 129 mmol/L Low 135-145 [facility] Comment on above: Performed By: #### 2 [id number] #### [facility] [address] [place] [address] Urea nitrogen [Mass/Vol] 15 mg/dL Normal 5-21 [facility] Comment on above: Performed By: #### 2 [id number] #### [facility] [address] [place] [address] Urea nitrogen/Creatinine [Mass ratio] 17 No Units Normal 10-20 [facility] Comment on above: Performed By: #### 2 [id number] #### [facility] [address] [place] [address] CBC w/ Auto Diffon 4 Basophils/100 WBC (Bld) 0.9 % Normal 0.0-2.0 [facility] Comment on above: Performed By: #### 2 [id number] #### [facility] [address] [place] [address] Basophils/Leukocytes Auto (Bld) [Pure # fraction] 0.0 E9/L Normal 0.0-0.2 [facility] Comment on above: Performed By: #### 2 [id number] #### [facility] [address] [place] [address] Eosinophils (Bld) [#/Vol] 0.2 E9/L Normal 0.0-0.5 [facility] Comment on above: Performed By: #### 2 305013 #### [facility] [address] [place] [address] Eosinophils/100 WBC (Bld) 3.6 % Normal 0.0-8.0 [facility] Comment on above: Performed By: #### 2 [id number] #### [facility] [address] [place] [address] Erythrocyte distribution width (RBC) [Ratio] 13.4 % Normal 10.9-14.2 [facility] Comment on above: Performed By: #### 2 198639 #### [facility] [address] [place] [address] Hematocrit (Bld) [Volume fraction] 36.3 % Low 37.7-49.0 [facility] Comment on above: Performed By: #### 2 [id number] #### [facility] [address] [place] [address] Hemoglobin (Bld) [Mass/Vol] 12.8 g/dL Low 13.5-17.5 [facility] Comment on above: Performed By: #### 2 [id number] #### [facility] [address] [place] [address] Lymphocytes (Bld) [#/Vol] 1.5 E9/L Normal 1.0-4.0 [facility] Comment on above: Performed By: #### 2 [id number] #### [facility] [address] [place] [address] Lymphocytes/100 WBC (Bld) 30.1 % Normal 14.0-50.0 [facility] Comment on above: Performed By: #### 2 [id number] #### [facility] [address] [place] [address] MCH (RBC) [Entitic mass] 31.7 pg Normal 27.0-34.0 [facility] Comment on above: Performed By: #### 2 [id number] #### [facility] [address] [place] [address] MCHC (RBC) [Mass/Vol] 35.2 g/dL Normal 31.4-36.0 [facility] Comment on above: Performed By: #### 2 [id number] #### [facility] [address] [place] [address] MCV (RBC) [Entitic vol] 90.1 fL Normal 80.0-100.0 [facility] Comment on above: Performed By: #### 2 [id number] #### [facility] [address] [place] [address] Monocytes (Bld) [#/Vol] 0.4 E9/L Normal 0.2-1.0 [facility] Comment on above: Performed By: #### 2 [id number] #### [facility] [address] [place] [address] Neutrophils (Bld) [#/Vol] 2.9 E9/L Normal 2.0-7.5 [facility] Comment on above: Performed By: #### 2 545672 #### [facility] [address] [place] [address] Neutrophils/100 WBC (Bld) 56.9 % Normal 36.0-75.0 [facility] Comment on above: Performed By: #### 2 [id number] #### [facility] [address] [place] [address] Platelet 175.0 E9/L Normal 150.0-500.0 [facility] Comment on above: Performed By: #### 2 125362 #### [facility] [address] [place] [address] Platelet mean volume (Bld) [Entitic vol] 9.1 fL Normal 6.4-10.8 [facility] Comment on above: Performed By: #### 2 844512 #### [facility] [address] [place] [address] RBC (Bld) [#/Vol] 4.0 E12/L Low 4.3-5.9 [facility] Comment on above: Performed By: #### 2 [id number] #### [facility] [address] [place] [address] WBC corrected for nucl RBC Auto (Bld) [#/Vol] 5.1 E9/L Normal 4.0-11.0 [facility] Comment on above: Performed By: #### 2 347114 #### [facility] [address] [place] [address] CHEMISTRYOrdered By: SYSTEM SYSTEM on 10-30-2024 Anion [...] 10-30-2024 eGFR 85 mL/min/1.73 m2 Normal >=59 [facility] Comment on above: Performed By: #### 1 [id number] #### [facility] [address] [place] [address] Family Medicine Office/Clini c Noteon 09-10-2024 Family [...] Daily, # 90 tab(s), Refills(s) 0, Pharmacy: [facility], 178, cm, 09/10/24 13:01:00 [...] Daily, 1 refills fluticasone Nasal 0.05 mg/inh [place], See Instructions gabapentin 300 mg Cap, 300 [...] Diabetes mellitus (more content not included)... 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 [...] E&M of New Patient Low 30-44 Min 89723 2. ASCVD (arteriosclerotic cardiovascular disease) (I25.10: Atherosclerotic heart disease of [place] coronary artery without angina pectoris) The patient require surgery he will require cardiac clearance Ordered: E&M of New Patient Low 30-44 Min 36096 3. Longstanding persistent atrial fibrillation (I48.11: Longstanding persistent atrial fibrillation) Should patient require or opt for a robotic repair he will need to hold his anticoagulation for 5 days prior to the procedure Ordered: E&M of New Patient Low 30-44 Min 03144 Follow-up No qualifying data available Problem List/Past [...] Oral, Daily, 1 refills Flonase 0.05 mg/inh [place], 1 spray(s), Nasal, BID gabapentin 300 mg [...] virus vaccine, inactivated 08/02/2014 Recorded Normal [facility] Comment on above: Result Comment: [...] mg Tab) fluticasone nasal (Flonase 0.05 mg/inh [place]) gabapentin (gabapentin 300 mg Cap) glimepiride (glimepiride [...] EST With: Adam COHN, Kylah Cole Where: [address] [address]- Tuesday 1:00 PM EST With: Dixon Dubose PA-C Where: [facility] 2024 8:00 AM EDT With: Where: [address] [address]- Medications What How Much When Why Instructions [...] Unchanged fluticasone nasal (Flonase 0.05 mg/ inh [place]) 1 Sprays Nasal Inhalation 2 times a [...] for choosing us for your care. Normal [facility] Family Medicine Office/Clini c Noteon 08-07-2024 Family [...] # 21 tab(s), Refills(s) 0, Pharmacy: [facility] #[id number], 178, cm, 07/31/24 14:02:00 EDT, [...] Oral, Daily, 1 refills Flonase 0.05 mg/inh [place], 1 spray(s), Nasal, BID gabapentin 300 mg [...] 1 r (more content not included)... Normal [facility] Comment on above: Result Comment: Elec tronically [...] # 21 tab(s), Refills(s) 0, Pharmacy: [facility] #[id number], 178, cm, 07/31/24 14:02:00 EDT, Height/Length Dosing, 78.5, kg, 07/31/24 14:02:00 EDT, Weight Dosing tramadol, 50 mg = 1 tab(s), Oral, q4hr, PRN for pain, X 7 day(s), # 21 tab(s), Refills(s) 0, Pharmacy: [facility] #[id number], 178, cm, 07/31/24 14:02:00 EDT, [...] Oral, Daily, 1 refills Flonase 0.05 mg/inh [place], 1 spray(s), Nasal, BID gabapentin 300 mg [...] virus vaccine, inactivated 08/02/2014 Recorded Normal [facility] Comment on above: Result Comment: [...] mg Tab) fluticasone nasal (Flonase 0.05 mg/inh [place]) gabapentin (gabapentin 300 mg Cap) glimepiride (glimepiride [...] PM EDT With: Kylah Medina MD Where: [address] [address]- 2023 9:15 AM EST With: Kylah Medina MD Where: [address] [address]- Tuesday 1:00 PM EST With: Dixon Dubose PA-C Where: [facility] 2024 8:00 AM EDT With: Where: [address] [address]- Medications What How Much When Instructions Unchanged [...] Unchanged fluticasone nasal (Flonase 0.05 mg/ inh [place]) 1 Sprays Nasal Inhalation 2 times a [...] choosing us for your care. Normal [facility] Family Medicine Office/Clini c Noteon 07-24-2024 Family Medicine Office/Clinic Note Family Medicine Office/Clinic Note HPI Staff Dariel is an 84 year old male presenting for ER follow up ER followup: Hospital: [place] Visit date: 07/14/24 Symptoms the patient presented [...] patient was under the dosed. Patient stated Pomfret was helping him more. Patient denies any [...] - Will do Tizanadine - Will do Pomfret for pain - Follow up in 1 week. - Will send to pain Ordered: [facility] External Ambulatory Referral 2. Inguinal hernia of left side without obstruction or gangrene (K40.90: Unilateral inguinal hernia, without obstruction or gangrene, not specified as recurrent) - Pt cancelled his surgery. - NO pain at this time. - Encouraged follow up Ordered: [facility] External Ambulatory Referral 3. Nonsmoker (Z78.9: Other specified health status) - Please continue to not smoke Ordered: Body Mass Index (BMI) documented 3008F Current tobacco non-user 1036F Depression Screening Negative 3352F [facility] External Ambulatory Referral Most recent diastolic blood [...] Oral, Daily, 1 refills Flonase 0.05 mg/inh [place], 1 spray(s), Nasal, BID gabapentin 300 mg Cap, 300 mg= 1 cap(s), Oral, Daily, 1 refills glimepiride 2 mg Tab, 2 mg= 1 tab(s), Oral, Daily, 1 refills Jantoven 5 mg oral tablet, 5 mg= 1 tab(s), Oral, Daily levothyroxine 25 mcg (0.025 mg) Tab, 25 mcg= 1 tab(s), Oral, Daily, 1 refills Pomfret 325 mg-5 mg oral tablet, 1 tab(s), [...] No. Househol (more content not included)... Normal [facility] Comment on above: Result Comment: Elec tronically [...] AM EST With: Kylah Medina MD Where: [address] [address]- Tuesday 1:00 PM EST With: Gracy DOTY, Dixon Schumacher Where: [facility] 2024 8:00 AM EDT With: Where: [facility] Medicine [address] [address]- Medications What How Much When Instructions Unchanged [...] your care. [facility] Medicine Office/Clini c Noteon 07-03-2024 [...] 16 gram, Refill(s) 0, each nostril, [id number], 178, cm, 07/03/24 10:05:00 EDT, Height/Length Dosing, 80.8, kg, 07/03/24 10:05:00 EDT, Weight Dosing gabapentin, 300 mg = 1 cap(s), Oral, Daily, # 90 cap(s), Refills(s) 1, Pharmacy: [facility], 178, cm, 07/03/24 10:05:00 EDT, Height/Length Dosing, 80.8, kg, 07/03/24 10:05:00 EDT, Weight Dosing omeprazole, 40 mg = 1 cap(s), Oral, Daily, # 90 cap(s), Refills(s) 0, Pharmacy: [facility], 178.2, cm, 02/02/24 10:29:00 EDT, Height/Length Dosing, 84.1, kg, 02/02/24 10:29:00 EDT, Weight Dosing sildenafil, 100 mg = 1 tab(s), Oral, Daily, PRN for erectile dysfunction, 1 hour before sexual activity, # 5 tab(s), Refills(s) 0, Pharmacy: [facility], 178, cm, 07/03/24 10:05:00 EDT, Height/Length Dosing, 80.8, kg, 07/03/24 10:05:00 EDT,... 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 Normal [facility] Comment on above: Result Comment: Elec tronically [...] virus vaccine, inactivated 08/02/2014 Recorded Normal [facility] Comment on above: Result Comment: [...] November and January and was hospitalized in [place] for 2 of those. He states that [...] with voice recognition artificial intelligence software, specifically [employer], [email or web address] and or [employer]. Substitutions may have occurred due to the inherent limitations of voice recognition and artificial intelligence software. Total time spent pr (more content not included)... Normal [facility] Comment on above: Result Comment: Elec tronically [...] BY: Kashif Barnett MD ca Dictated: 05/27/2024 [id number] Transcribed: 05/28/[address] [facility] Comment on above: Result Comment: Elec tronically Signed By: Ericka COHN, Kashif Craig\.br\Date and Time Signed: 05/29/24 13:13 EDT Coding Summary.on 05-09-2024 Coding Summary. [id number]+P GhlYWQ+GO1RDGJbD08f lZJsxL6vQ9GKOJlNUwh gQVBQTElOSyIgbmFtZT 1kaXNjZXJu IC8+CH6eCFNmZntgiJG vo0A0qAK6H33out0iIA eebRZ9CZYzAnPrkrqtc 2iehOp8MSlbSmhwWoZl JUNwjG72DPJ7bO53Gv5 1lZLmaYZcr5gilCb3Pt WzVLNkJWY0zEzwXRquh 8MpRCIcN81ylZNvp9H6 IGNvbGxhcHNlOyBlbXB 9hP6tXPxjghgtv1egnd jcVpt2cf02vOUub6U8i WZ5B2DkkzV2PPPdzJCa AhprkIFXfZ7gogyga1t aqagfOaVaJTLkMQx3OB h3WENqsDsjCaNxKI54E RS5IZWqpeUsS0JxJUWl wBrdLjU5k6F3Kc7NQ3U ZQeigK1DTGJQUIGctxW Q+AJ05xk77U6FvWmskJ kx9WMWhWSL8sFI4wU8l ROQhXFkdq4E6qCV4U2J yrlNlyo7tl1iwUFJdVL hmY31qhZAtn3Q8AQYak UF5IMYhwBsbLmGehP60 Oyc+GRTocLwlb1KdYzp ie8ouq8lpaUx5DzgyQA OaueDmnPflQMR1z1NjS e5aCZHosDZ6bBG2qB9z VcSfDlB8RIazV106NjI rrUCkQauhT49aV1IevR A+YURhYdn4CKVrgMzoA K8qB2AtSZObfhuyxDBj uEurIR6gCUIloldjFUR amP4wERCzQ7z8NrTpKm F1EJjeP3CwBLGmxjtmZ t10vF8bNnZgEuQ2MQkb L3YrnfH2PLTpmPAqTBf bAOB9Z49fg8D4GFAvHG OrSVQ5iCB9mU4jdAsyo jogbGVmdDsgdmVydGlj IOwsVYtjW586KGCdrDd nPkNvZGluZyBEYXRlOi AgMDYvMjYvMjAyNDwvd GQ+UMYsLOO8mUftRDFd yLVrGYcbLc8gnYbezMy eWJ3bAMLrbaadBOGdtJ 8yKRRooXBjmNtcPN2vS EDtuzefx457EfKlXLZ5 DBWzfFIfT4WteK4gIpW bIEOmIJYrZ6QreDJbKD cqJ925DCppWjY8LNGct nVgS2RcIFOshGeuGsY9 n0P6Xx9Of2ExtglmH7R nrUAkLkJoBlmkQKw2V1 RkPjwvdHI+UO52DMKcM V61JTg1ODH0rFlaOCft ZAZdC6PatX7uZmWwBSK kZGRkOyc+PHRhYmxlIH dpZHRoPScxMDAlJyBzd InbVA4cHi5qREBqWPFo tOjyzXUcFzWkf6noCWT qLGzwGQ3poVcnI3BxzK P8LWAvh7e6Dl56Q40uL 3JvdXA+IJArwCM9pND4 bN2bGsOlGpE9LCfuM27 2ZcTmmCApMsmyz1lzm7 xxgJx4ZmN7QVFtvcCxj WapWDT1j6YsOo80O93d IHdpZHRoPSIxNSUiIHZ qqBerfk5xjZ4fRd7+PG AlxZJ5jGV2nD8rMmZmA zJ9AJulN706JcKupMUj Ikeyt6lvk3rjuVr3XqS iTNDvujBcwQbwDEV2m5 IcHn39O0FnuGnar9HoX gc1cb95wMCne1W8tIR4 Z9SkPLLmwgoboPBukFs uRZ3mPOVglnbrXWVyeT 2vLQDkL7j0XzKwYeQ2X RftZ8TznoG0HSRybNGd CVNybPORdQ0ejixew8z ltbtxAwRaJBFgCPa1XS b1UEOmfUbyUbRfVCB9Q eS1YEW1jSKjvF3ciIdg jwolmQ2dXvj+HGH0rQE jjYYFYB5aBkqfdWX+PH IpVMV6hTcgXSsoDZYgo A7mQCEmI3n6UvWqMpY7 VUprP2HdcsQ3UDZdfVU lKGRguIVKgY6yxccwi2 ovydtoEsFhLYFoGOf5S Pl8KPKtaEudUwQdZYB6 VjS4XDE5uHIexR1xqRe znpvqoH3kUxl+QmlydG asXYB9UZb0S3GzNbv3S BXtfBinLT7lzHMqCTgo Bk4vpVsahRyjLB1rXMO dowbzf736JxYin6liZC FvjDFzDMynMGD7P74ip 0J7YKJiULQfOSJ0qMT3 nI1lcUukamhxjNOovMh gdmVydGljYWwtYWxpZ2 38RDOvuRwcNlCnRLj7W 3PaEdk0AXWanVhtXO2y pNCwROgkOy9bsJwsjPu fBT8hWWOohrcpl980Ns Yhy5waNBDaxVLfOXhbG MP3O67yw3R1FZXqVQUk LQK3fQS5bG2vpYmrksa gbGVmdDsgdmVydGljYW ghIXrsS789SXAjkHczZ nYigEe9S1TyWig2DKDr hOoaHH1tkANrCSaaDi7 muVrdzRyaDC7gJQUboe ppo092ZlFbd7acHPEgr ZSaIVmwNZW3P38ul1B1 GUMyRAXcOKV0fMS5pW6 hbGlnbjogbGVmdDsgdm QcsOpvHDepMQhkQ793A HRvcDsnPlBhdGllbnQg QIzgCDc4V9McGazrwWG +II37MWWsFM47qESwuC Ihs9byoBo6OcGzHRAmZ DL0wNbsWUaqo6MuYEMv D14fpVEji1J3PRFgeYu flBTlWaBdrZN1lL8kIP imvcuds8klbqyaYwwnf 5rvht40gH75R12kFBod ZHRoPSIzMCUiIHZhbGl vpx4kgF6lMu4+PGNvbC T6cBM4tU0jNIKqSqV0W MbpD114DpRzrVCbHmxh z2bcq4hphHp2MvH6YLN hkoLflVxwWWA5o0HiNr 59X32zYBiaKDLhTCVvJ IWiKOZrnOyjuq4fcO4p Ii8+BKIweLL2mSS8mK6 hQwTqHuA2AYcaK052Md ZpmMCgJhpsA30nW9Vaf XA+AUHyOhr3KFTocDbg HY1gtSQvOOseJm9zBQB 5SnEeQwVeCRluC1MmGO TctxgdqtlwiDN6NHHkB IEspM63Jh5qeDvyZTBw gELWxM1ukopxp2jjkmw hChJuPNZgDXx6SGh8UV TrsTrtNkAeUZF4FuC0E ZD5aKTzoV4lrGeclafg kU8yF9BfMDSbejcaBv3 2bW1nWmVeEhU7GTchEg c+UyJXPfzrOy6IVYDFE Z88CV26fZHkk6N1cLQ5 D2RrWQEjsfzsyhypyLT 1PJLzGIDliF06yPBxHC gyVh7sg8N7p881RHSmO TVuaR22Bh2ahQufFCYy qHSNoY9vpryjl9ppyac eSeNvBFWrZJu5YBd6FC QtsZnwSfCqIAH0DlS8I WG9cLZgtI1omRuzodjh vJ5lPld+MDYvMDkvMTk 0MjwvdGQ+PYHsXYU0lI omMIkfSDYomC4yEEFmV 8f6MkVgLrY9QTsoJ5Vy YWXkwsxtTx05wJ6cLiH lDrT8LIgdD2PetzS0EH YfoIYsWQscYGC3M89hp 1F7VZBxITQgASN3vER5 mD0fpZbzfyfzyIEczNp gdmVydGljYWwtYWxpZ2 46IHRvcDsnPjgyIFllY DOvKN31YI12nLFba6H0 qTX9F2XzUQQgzcbjgny keEP6GXLsCLLlbY10iN OsZLxtHb2if6N5y163N EJnUWYbcU61Qb8qrXtv IIPkiSGIzH7ujvlkv8p uwagpGeAgKJQmMZo0CI e6DDIfoKlgKrOvIXU5F cU9VYW1aNKyeS8ygHve wtdxkE5oRde+TWFsZTw vdGQ+NRAhRUQ4uQomQV ioDETmxA3wNKFqD0j7I iCwUdU9BWhoR0RxVHKj kikdHo58aF3sVkJzOpO 2IXttA3CdixE8RZSikO SePYyjPGV4U54pl1R5M UUpGBQcXWC1iBZ7bR5y bGlnbjogbGVmdDsgdmV crDjlXSvrUNdwC001AT GynJcrLx80cJJzmVpsm bH5B4AnXysjjFT+PC90 MNQbEI66aPPnhLEmn6j xpGn2VsFjPWIiFER9pQ nnLIbja8BmNYJiN85qo DZqa9Q8WMTmhUploHCu CtWypUJ6yN9yOSlavdl se8chqocpJxbjz0pmri 06vN29A74rVXpaPFGdV ESsNPEkZVMkbCefqd3s dV9fSb6+GFXubZK7jEP 2jJ2jHlTeShT8XZosK1 51GfDldVLnNvtwh3lss 4exlHs9KqOkSKCccbRb xIktFOJ2f9KdBn06T08 sIHdpZHRoPSIyMCUiIH AdeFpdjj1xpI0vIj4+P F2rh9ctkf62yG20qBR+ PPSwFMZ5pTshLXamLGY gnW9pQIzlXwK6BGCaDx QeeS55vHCbVFctZr4iy JctoJsuSK2nUIZpzefq u515XfCpj5bwCAJefCJ sEWfkQQZ0U97sf3J5OX FrZCXuUOD6wAS4sN3mf GlnbjogbGVmdDsgdmVy gScgEMdxRTueV693LKD iiGrlXrVtyVOvZ9njsi IXEY7iCcjouNU+PHRkI CZ1oBfhPDltMWZstU9f ZFWeI7j1GjHwLsF2MAc iW1TssvO0ABEjjZOqDT XpjESGgU2dauuhf0pip wpnJnWiDRKbOPi6PFk2 HVNzyRubGvItZWL0EgB 8ARO4jMTqyM8tvFakuc qrjH9oEuo+RklOOjwvd GQ+LTMmZLD8fLtoQMff VBLhwQ1yEPYwR7m2XrJ iOvM9VUcwP7JsxuJ5LM WrvNQwBIVczLQHtV9bm kxds0qznojvJpXgQCUt GCf3FNg0TCNnaFhtRcH mWXU9RcN6KPF8aAQyrI 2jqIkhskzqlS9uEpu+T VJOOjwvdGQ+PHRkIHN0 zRafHUmjSLKssG1wJEM dH8q9ZbQsFuR3OEsrC4 WwpgP1HCXwuXEpQNFgp NUHmD7ulylom4kwdcfo XxGgALKxZAh4SJa3ZYK ldLlwKcLgDGI9TsF6LN D5vNDpgU9sdUitclswb G9wOyc+BLY8VEA1QJ87 EX94A5DgUyqpgNGnfZB +PHRhYmxlIHdpZHRoPS hkZFJxWcAqeNdpGA9oI c5dRCQwHOQjeDdxnHKg SyHow6icODZoS (more content not included)... Normal [facility] Consultation Noteon 06-24-20 24 Consultation Note [id number] D#[id number] [facility] Ambulatory Visit Summaryon 0 05-03-2024 Ambulatory [...] With: Kashif Barnett MD Where: [facility] [place] 2023 9:15 AM EST With: Kylah Medina MD Where: [facility] [place] Normal [address] [place] [address]- \.br\ Medications\.br\ What How Much When Instructions\.br\ [...] to adjust your dosage.\.br\ ? \.br\ Take lagn-ket-izddxud and prescription medicines only as told by [...] as told by your [facility] Ambulatory Visit Summary DARIEL ZABALA :1940 [...] Ericka COHN, Kashif Craig Where: [facility] [place] 2023 9:15 AM EST With: Adam COHN, Kylah Cole Where: [facility] [place] Normal [address] [place], [place] [address]- \.br\ Medications\.br\ What How Much When Instructions\.br\ [...] of cylinders, a pump, and a reservoir. [facility] Medicine Office/Clini c Noteon 05-03-2024 Family [...] 08:24:28 EDT Procedure Dt/Tm: 03/26/2024 ; Location: [facility] ; Anesthesia Minutes: 0 ; Procedure [...] Renetta Abdullahi LPN - 05/03/2024 8:01 EDT [facility] Risks Grid Sexual problems : Never [...] Depression Screening (more content not included)... Normal [facility] Comment on above: Result Comment: Elec tronically [...] is seeing cardiology and did not tell oxygen equipment preparer or myself that he had been taking [...] Daily, # 90 tab(s), Refills(s) 0, Pharmacy: [facility], 178.2, cm, 02/02/24 10:29:00 EDT, Height/Length Dosing, 84.1, kg, 02/02/24 10:29:00 EDT, Weight Dosing sodium chloride, See Instructions, TAKE 1 TABLET BY MOUTH TWICE DAY, # 90 tab(s), Refills(s) 2, Pharmacy: [facility]/pharmacy #[id number], 180.5, cm, 03/20/24 15:05:00 EDT, [...] Abuse, 03/06 (more content not included)... Normal [facility] Comment on above: Result Comment: Elec tronically Signed By: Adam COHN, Kylha Cole\.br\Date and Time Signed: 05/03/24 09:15 EDT [...] night-lights. ? Place frequently used items in ucmr-vt-ahzif places. Lower the shelves around your home [...] the way. ? Do not use floor kinyarwanda or wax that makes floors slippery. If [...] include working with a physical therapist or athletic trainer to improve your strength, balance, and endurance. Where to find more information ? Centers for Disease Control and Prevention, [place]: www.cdc.gov ? National [place] [employer] Aging: www.kieran.nih.gov Contact a health care [...] health ca (more content not included)... Normal [facility] Patient Education Urology Erectile Dysfunction Erectile dysfunction [...] these instructions at home: Medicines ? Take ohcb-kym-ighwpfi and prescription medicines only as told by [...] include cig (more content not included)... Normal [facility] 05-03-2024 Screens [id number]#[id number] Normal [facility] CBC w/ Auto Diffon 4 Basophils/100 WBC (Bld) 0.9 % Normal 0.0-2.0 [facility] Comment on above: Performed By: #### 2 [id number] #### [facility] [address] [place] [address] Basophils/Leukocytes Auto (Bld) [Pure # fraction] 0.0 E9/L Normal 0.0-0.2 [facility] Comment on above: Performed By: #### 2 [id number] #### [facility] [address] [place] [address] Eosinophils (Bld) [#/Vol] 0.1 E9/L Normal 0.0-0.5 [facility] Comment on above: Performed By: #### 2 [id number] #### [facility] [address] [place] [address] Eosinophils/100 WBC (Bld) 2.4 % Normal 0.0-8.0 [facility] Comment on above: Performed By: #### 2 [id number] #### [facility] [address] [place] [address] Erythrocyte distribution width (RBC) [Ratio] 14.4 % High 10.9-14.2 [facility] Comment on above: Performed By: #### 2 [id number] #### [facility] [address] [place] [address] Hematocrit (Bld) [Volume fraction] 42.2 % Normal 37.7-49.0 [facility] Comment on above: Performed By: #### 2 [id number] #### [facility] [address] [place] [address] Hemoglobin (Bld) [Mass/Vol] 14.0 g/dL Normal 13.5-17.5 [facility] Comment on above: Performed By: #### 2 [id number] #### [facility] [address] [place] [address] Lymphocytes (Bld) [#/Vol] 1.4 E9/L Normal 1.0-4.0 [facility] Comment on above: Performed By: #### 2 [id number] #### [facility] [address] [place] [address] Lymphocytes/100 WBC (Bld) 34.0 % Normal 14.0-50.0 [facility] Comment on above: Performed By: #### 2 [id number] #### [facility] [address] [place] [address] MCH (RBC) [Entitic mass] 30.8 pg Normal 27.0-34.0 [facility] Comment on above: Performed By: #### 2 [id number] #### [facility] [address] [place] [address] MCHC (RBC) [Mass/Vol] 33.1 g/dL Normal 31.4-36.0 [facility] Comment on above: Performed By: #### 2 [id number] #### [facility] [address] [place] [address] MCV (RBC) [Entitic vol] 92.9 fL Normal 80.0-100.0 [facility] Comment on above: Performed By: #### 2 [id number] #### [facility] [address] [place] [address] Monocytes (Bld) [#/Vol] 0.4 E9/L Normal 0.2-1.0 [facility] Comment on above: Performed By: #### 2 [id number] #### [facility] [address] [place] [address] Neutrophils (Bld) [#/Vol] 2.2 E9/L Normal 2.0-7.5 [facility] Comment on above: Performed By: #### 2 [id number] #### [facility] [address] [place] [address] Neutrophils/100 WBC (Bld) 53.4 % Normal 36.0-75.0 [facility] Comment on above: Performed By: #### 2 [id number] #### [facility] [address] [place] [address] Platelet 166.0 E9/L Normal 150.0-500.0 [facility] Comment on above: Performed By: #### 2 [id number] #### [facility] [address] [place] [address] Platelet mean volume (Bld) [Entitic vol] 9.8 fL Normal 6.4-10.8 [facility] Comment on above: Performed By: #### 2 [id number] #### [facility] [address] [place] [address] RBC (Bld) [#/Vol] 4.5 E12/L Normal 4.3-5.9 [facility] Comment on above: Performed By: #### 2 [id number] #### [facility] [address] [place] [address] WBC corrected for nucl RBC Auto (Bld) [#/Vol] 4.2 E9/L Normal 4.0-11.0 [facility] Comment on above: Performed By: #### 2 [id number] #### [facility] [address] [place] [address] CHEMISTRYOrdered By: SYSTEM SYSTEM on 05-01-2024 Albumin [...] used for this result was chemiluminescence using [employer]'s Access Hybritech PSA reagent. Protein [Mass/Vol] 7.1 [...] 05-01-2024 Albumin [Mass/Vol] 4.2 g/dL Normal 3.3-5.0 [facility] Comment on above: Performed By: #### 2 [id number] #### [facility] [address] [place] [address] Albumin/Globulin (S) [Mass conc ratio] 1.4 Normal 1.1-2.2 [facility] Comment on above: Performed By: #### 2 812731 #### [facility] [address] [place] [address] ALP [Catalytic activity/Vol] 83 Int._Unit/L Normal 21-98 [facility] Comment on above: Performed By: #### 2 [id number] #### [facility] [address] [place] [address] ALT No additional P-5'-P [Catalytic activity/Vol] 14 Int._Unit/L Normal 6-46 [facility] Comment on above: Performed By: #### 2 360202 #### [facility] [address] [place] [address] Anion gap [Moles/Vol] 10 mmol/L Normal 6-16 [facility] Comment on above: Performed By: #### 2 157325 #### [facility] [address] [place] [address] AST [Catalytic activity/Vol] 22 Int._Unit/L Normal 5-43 [facility] Comment on above: Performed By: #### 2 [id number] #### [facility] [address] [place] [address] Bilirubin [Mass/Vol] 0.9 mg/dL Normal 0.0-1.1 [facility] Comment on above: Performed By: #### 2 564045 #### [facility] [address] [place] [address] Calcium [Mass/Vol] 9.5 mg/dL Normal 8.9-11.1 [facility] Comment on above: Performed By: #### 2 261557 #### [facility] [address] [place] [address] Chloride [Moles/Vol] 103 mmol/L Normal 101-111 [facility] Comment on above: Performed By: #### 2 732517 #### [facility] [address] [place] [address] CO2 [Moles/Vol] 29 mmol/L Normal 21-31 [facility] Comment on above: Performed By: #### 2 793385 #### [facility] [address] [place] [address] Creatinine [Mass/Vol] 1.1 mg/dL Normal 0.5-1.3 [facility] Comment on above: Performed By: #### 2 855735 #### [facility] [address] [place] [address] Globulin (S) [Mass/Vol] 2.9 g/dL Normal 1.4-4.0 [facility] Comment on above: Performed By: #### 2 860701 #### [facility] [address] [place] [address] Glucose [Mass/Vol] 104 mg/dL Normal 55-199 [facility] Comment on above: Performed By: #### 2 545710 #### [facility] [address] [place] [address] Potassium [Moles/Vol] 5.2 mmol/L Normal 3.5-5.3 [facility] Comment on above: Performed By: #### 2 185099 #### [facility] [address] [place] [address] Protein [Mass/Vol] 7.1 g/dL Normal 6.0-7.8 [facility] Comment on above: Performed By: #### 2 713498 #### [facility] [address] [place] [address] Sodium [Moles/Vol] 137 mmol/L Normal 135-145 [facility] Comment on above: Performed By: #### 2 512038 #### [facility] [address] [place] [address] Urea nitrogen [Mass/Vol] 15 mg/dL Normal 5-21 [facility] Comment on above: Performed By: #### 2 958836 #### [facility] [address] [place] [address] Urea nitrogen/Creatinine [Mass ratio] 14 No Units Normal 10-20 [facility] Comment on above: Performed By: #### 2 788362 #### [facility] [address] [place] [address] Consent for Treatmenton 04-14 Consent for Treatment [id number] 72#1.00TIFF Normal [facility] HEMATOLOGYOrdered By: SYSTEM SYSTEM on 05-01-2024 Basophils/100 [...] Remisol Heme Lab Reportson 05-01-2024 Lab Reports [id number] E#1.00TIFF Normal [facility] Lipid Panelon 05-01-2024 Cholesterol [Mass/Vol] 168 mg/dL Normal 120-200 [facility] Comment on above: Performed By: #### 2 669284 #### [facility] [address] [place] [address] Cholesterol in HDL [Mass/Vol] 54 mg/dL Invalid Interpretation Code [facility] Comment on above: Result Comment: '>= 60 LOW RISK' '<= 40 HIGH RISK' Performed By: #### 2 452192 #### [facility] [address] [place] [address] Cholesterol in LDL [Mass/Vol] 99 mg/dL Normal <=129 [facility] Comment on above: Performed By: #### 2 754872 #### [facility] [address] [place] [address] Cholesterol in VLDL [Mass/Vol] 16 mg/dL Normal 7-40 [facility] Comment on above: Performed By: #### 2 784019 #### [facility] [address] [place] [address] Triglyceride [Mass/Vol] 78 mg/dL Normal <=149 [facility] Comment on above: Performed By: #### 2 724388 #### [facility] [address] [place] [address] Nurse Consultation Noteon Nurse Consultation Note Reason [...] influenza virus vaccine, inactivated 08/02/2014 Recorded Normal [facility] PSA Screen, Totalon 05-01-20 24 Prostate specific Ag [Mass/Vol] 1.3 ng/mL Normal 0.1-3.5 [facility] Comment on above: Result Comment: The concentration of PSA determined by different manufacturers can vary due to differences in assay methods and reagent specificity. Values obtained from different assay methods cannot be used interchangeably. The methodology used for this result was chemiluminescence using [employer]'s Access Hybritech PSA reagent. Performed By: #### 1 [id number] #### [facility] [address] [place] [address] Physician Orderon 04-23-2024 Physician Order [id number] 859#1.00TIFF Normal [facility] Consent for Treatmenton Consent for Treatment [id number] #1.00TIFF Normal [facility] Heart and Vascular Office/Cl inic Noteon 04-20-2024 [...] or orthopnea. 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 with oxygen equipment preparer, location unknown, however, has not been followed [...] influenza virus vaccine, inactivated 08/02/2014 Recorded Normal [facility] Comment on above: Result Comment: Elec tronically Signed By: Ericka COHN, Kashif Craig\.br\Date and Time Signed: 04/20/24 13:49 EDT Insurance Correspondenceon 0 04-20-2024 Insurance Correspondence [id number] 559#1.00TIFF Normal [facility] Consultation Noteon 04-10-20 Consultation Note [id number] 1#1.00TIFF Normal [facility] Postoperative Documentson Postoperative Documents [id number] 811#1.00TIFF Normal [facility] Consultation Noteon 03-29-20 Consultation Note [id number] B4#1.00TIFF Normal [facility] Lab Reportson 03-29-2024 Lab Reports [id number] DF#1.00TIFF Normal [facility] RAD - MISCon 03-29-2024 RAD - MISC [id number] 19#1.00TIFF Normal [facility] IntraOperative Documentson 0 03-28-2024 IntraOperative Documents [id number] 516#1.00TIFF [facility] Consent for Anesthesiaon Consent for Anesthesia [id number] 28#1.00TIFF [facility] Discharge Instructionson Discharge Instructions [id number] 47#1.00TIFF [facility] IntraOperative Documentson 0 03-27-2024 IntraOperative Documents [id number] 36#1.00TIFF [facility] Main OR Intraoperative Recor don 03-27-2024 Main OR Intraoperative Record IntraOp Document Type FT Summary Primary Physician: Axel Hernández DO Finalized Date/Time: 03/27/24 09:11:12 Pt. Name: DARIEL ZABALA/Sex: 1940 Male Med Rec #: [id number] Physician: Axel Hernández DO Financial #: [id number] Pt. Type: A Room/Bed: [facility]/01 Admit/Disch: 03/26/24 09:11:44 - 03/26/24 14:30:00 Institution: [...] Peguero Role Performed Anesthesiologist Surgeon - Primary City Tax Auditor - Primary Certified Alcohol Drug Counselor Time In 03/26/24 12:20:00 03/26/24 12:20:00 03/26/24 [...] Marium Peña RN, Rich Nickerson Role Performed FROG OR OYSTER FARMWORKER/SA Scrub - Primary Staff - Other Time [...] and tissue Entry 1 Skin Integrity Intact, [place], Warm, and Skin Abnormality No Dry Outcomes Met? Yes Last Modified By: Jony Ambrocio Serina 03/26/24 12:36:42 Post-Care Text: The patient is free from signs and symptoms of injury caused by extraneous objects Patient Positioning FT Pre-Care Text: Identifies physical alterations that require additional precautions for procedure-specific positioning, verifies presence of prosthetics or correctiv (more content not included)... Normal [facility] Operative Reporton Operative Report SURGERY DATE: 03/26/2024 CLINICAL SCIENCES PROFESSOR: Chica Jolley C.F.A. PREOPERATIVE DIAGNOSIS: Right little [...] patient's condition satisfactory Deanna Weller Dictated: 03/26/2024 [id number] Transcribed: 03/26/2024 cc:Kylah Medina M.D. [facility] Comment on above: Result Comment: Elec tronically Signed By: Axel Hernández DO\.br\Date and Time Signed: 03/27/24 07:40 EDT Preoperative Documentson Preoperative Documents [id number] 14#1.00TIFF [facility] Progress Note-Physicianon Progress Note-Physician Patient: DARIEL [...] 2 causing vascular disease / SNOMED CT 629487326 / Confirmed Trigger finger / SNOMED CT 872209044 / Confirmed Syncope / SNOMED CT 950264500 / Confirmed Body mass index (BMI) of 25.0-25.9 in adult / SNOMED CT 1062023661 / Confirmed Osteoarthritis / SNOMED CT 6020446312 / Confirmed Encounter for surveillance of abnormal nevi / SNOMED CT 5507213034 / Confirmed Laceration of head / SNOMED CT 4199185009 / Confirmed Hyponatremia / SNOMED CT 788915711 / Confirmed Hyperlipidemia / SNOMED CT 82003751 / Confirmed Fall at home / SNOMED CT 83303439 / Confirmed ED (erectile dysfunction) / SNOMED CT 4487938373 / Confirmed Carpal tunnel syndrome, left / SNOMED CT 32524160 / Confirmed Afib / SNOMED CT 20524797 / Confirmed ASCVD (arteriosclerotic cardiovascular disease) / SNOMED CT 732398151 / Confirmed Histories Procedure history: Surgery, neck X 2 (814873962). Carpal tunnel release (347456253). Social History Social & Psychosocial Habits Alcohol [...] adequate air exchange. Cardiovascular: Regular rhythm. Plan [place] [employer] Anesthesiologists (ASA) physical status classification: Class III. Anesthetic Preoperative Plan: Anesthesia General. Normal [facility] Comment on above: Result Comment: Elec tronically [...] meets criteria ( To home ). Normal [facility] Comment on above: Result Comment: Elec tronically Signed By: Chau Cardona Jr, DO.br\Date and Time Signed: 03/27/24 12:32 EDT CHEMISTRYOrdered By: Sara ROP User on 03-26-2024 Glucose [Mass/Vol] 92 mg/dL Normal 55 - 99 mg/dL [facility] C POC Subsection Comment on above: Result Comment: Justine garcia RN/ POC Device SN [id number] 1 Invalid Interpretation Code [facility] POC Subsection POC User ID [id number] 1 Invalid Interpretation Code [facility] POC Subsection POC Username LORNA WILSON Invalid Interpretation Code [facility] POC Subsection COAGULATIONOrdered By: Toshia Tadeo on 03-26-2024 aPTT Coag (PPP) [Time] 35.8 s Normal 25.1 - 36.5 second(s) [facility] Auto Coag Comment on above: Interpretive Data: [...] the same coagulation reagent and instrumentation as [facility]. Currently there are no coagulation studies available worldwide for children to 14 days, and no normal ranges. Heparin therapeutic range (represented by Anti-Factor Xa activity of 0.2 - 0.4 U/mL) corresponds to PTT of 56.6 - 109.0 sec. PT Coag (PPP) [Time] 13.4 s High 9.4 - 1 2.5 second(s) [facility] Auto Coag Comment on above: Interpretive Data: [...] the same coagulation reagent and instrumentation as [facility]. Currently there are no coagulation studies available worldwide for children to 14 days, and no normal ranges. Capillary Glucose POCon 03-14 Glucose [Mass/Vol] 92 mg/dL Normal 55-99 [facility] Comment on above: Result Comment: Justine garcia RN/ Performed By: #### 2 [id number] #### [facility] [address] [place] [address] Consent for Procedure/Surger yon 03-26-2024 Consent for Procedure/Surgery [id number] 421#1.00TIFF Normal [facility] Consent for Treatmenton 03-14 Consent for Treatment [id number] E9#1.00TIFF Normal [facility] Discharge Instructionson Discharge Instructions DARIEL ZABALA :1940 Visit Date:03/26/2024 Inpatient Discharge Instructions Your Care Team Admitting Physician - Axel Hernández DO Referring Physician - Axel Hernández DO Reason for Your Visit RIGHT LITTLE FINGER TRIGGER FINGER Your Diagnosis Trigger finger, right little finger This Is Your Medications List Turmeric (Turmeric 500 mg oral capsule) acetaminophen-hydro codone (Pomfret 325 mg-5 mg oral tablet) atenolol (atenolol [...] AM EDT Comments: Keep scheduled appointment Where: [address] [place] [phone]- Business (1) Medications What How Much When Why Instructions Next Dose Unchanged acetaminophen-hydro codone (Pomfret 325 mg-5 mg oral tablet) See instructions Trigger finger, right little finger 1 tab(s) Oral q4hr PRN Pain. Duration 7 days. Pickup at [id number] Unchanged atenolol (atenolol 25 mg Tab) 1 [...] day Pharmacy Information [id number]: [address], [place] [id number] [phone] Problems Ongoing - Any problem that you [...] and med (more content not included)... Normal [facility] Comment on above: Result Comment: Elec tronically Signed By: Sloan KHAN, Rudy Pereira\.br\Date and Time Signed: 03/26/24 14:03 EDT H&P Updateon 03-26-2024 H&P Update [id number] 633#1.00TIFF Normal [facility] Main OR PACU I Recordon 03-14 Main OR PACU I Record PACU Phase I Document Type FT Summary Primary Physician: Axel Hernández DO Finalized Date/Time: 03/26/24 13:38:42 Pt. Name: DARIEL ZABALA/Sex: 1940 Male Med Rec #: [id number] Physician: Axel Hernández DO Financial #: [id number] Pt. Type: A Room/Bed: Admit/Disch: 03/26/24 09:11:44 [...] By: Vicki Sethi RN 03/26/24 13:38 Normal [facility] Main OR PACU II Recordon Main OR PACU II Record PACU Phase II Document Type FT Summary Primary Physician: Axel Hernández DO Finalized Date/Time: 03/26/24 16:11:30 Pt. Name: DARIEL ZABALA /Sex: 1940 Male Med Rec #: [id number] Physician: Axel Hernández DO Financial #: [id number] Pt. Type: A Room/Bed: Admit/Disch: 03/26/24 09:11:44 [...] By: Rudy Lisa RN 03/26/24 16:11 Normal [facility] Main OR Preoperative Recordo n 03-26-2024 Main OR Preoperative Record PreOp Document Type FT Summary Primary Physician: Axel Hernández DO Finalized Date/Time: 03/26/24 13:07:41 Pt. Name: DARIEL ZABALA/Sex: 1940 Male Med Rec #: [id number] Physician: Axel Hernández DO Financial #: [id number] Pt. Type: A Room/Bed: [place] [address] Admit/Disch: 03/26/24 09:11:44 - Institution: Case Times [...] 03/26/24 13:05 Ambrocio Borges 03/26/24 13:07 Normal [facility] Monitor Recordon 03-26-2024 Monitor Record [id number] 220#1.00TIFF Normal [facility] Monitor Record [id number] 270#1.00TIFF [facility] PT & PTTon 03-26-2024 aPTT Coag (PPP) [Time] 35.8 second(s) Normal 25.1-36.5 [facility] Comment on above: Result Comment: Para meter [...] the same coagulation reagent and instrumentation as [facility]. Currently there are no coagulation studies available worldwide for children to 14 days, and no normal ranges. Heparin therapeutic range (represented by Anti-Factor Xa activity of 0.2 - 0.4 U/mL) corresponds to PTT of 56.6 - 109.0 sec. Performed By: #### 1 [id number] ####[facility] [address] [place] [address] PT Coag (PPP) [Time] 13.4 second(s) High 9.4-12.5 [facility] Comment on above: Result Comment: 15 d [...] the same coagulation reagent and instrumentation as [facility]. Currently there are no coagulation studies available worldwide for children to 14 days, and no normal ranges. Performed By: #### 1 [id number] ####[facility] [address] [place] [address] PT & PTTOrdered By: Starr linda on 03-26-2024 INR Coag (PPP) [Relative time] 1.19 {INR} Invalid Interpretation Code [facility] Auto Coag Comment on above: Interpretive Data: [...] 3.0 ? 4.5 Performed By: #### 1 [id number] ####[facility] [address] [place] [address] Patient Education - Texton 0 03-26-2024 Patient [...] ? Doing activities that require a strong soft water mechanic. ? Having rheumatoid arthritis, gout, or diabetes. [...] on your hand. General instructions ? Take gqrk-yyn-ybpohya and prescription medicines only as told by [...] care provide (more content not included)... Normal [facility] Ambulatory Visit Summaryon 0 03-20-2024 Ambulatory Visit [...] Tuesday 12:30 PM EDT With: Where: [facility] Surgical Services Tuesday 9:00 AM EDT With: Where: [facility] Invalid Interpretation Code [address] [place] [address]- \.br\ 2023 9:00 AM EDT \.br\ With: Adam COHN, Kylah Cole\.br\ Where: [facility] Consent for Procedure/Surger yon 03-20-2024 Consent for Procedure/Surgery [id number] 969#1.00TIFF Normal [facility] Family Medicine Office/Clini c Noteon 03-20-2024 Family Medicine Office/Clinic Note HPI Staff Dariel is an 83 year old male presenting for ER follow up needs his andre removed ER followup: Hospital: [facility] Visit date: 03/10/24 Symptoms the patient presented [...] - Hold coumadin tomorow for surgery Ordered: [facility] Internal Ambulatory Referral 2. Fall at home (W19.XXXA: Unspecified fall, initial encounter) - 2/2 syncope - Nausea before syncope - Will refer to Cardio for evaluation of continues syncope Ordered: [facility] Internal Ambulatory Referral 3. Laceration of head (S01.91XA: Laceration without foreign body of unspecified part of head, initial encounter) - Stables removed - no issues. Ordered: [facility] Internal Ambulatory Referral 4. Syncope (R55: Syncope and collapse) - Will send to Cardio for further work up Ordered: [facility] Internal Ambulatory Referral 5. Hyponatremia (E87.1: Hypo-osmolality and hyponatremia) - Recheck BMP today - Follow up with Nephrology Ordered: [facility] Internal Ambulatory Referral 6. Over weight (E66.3: [...] influenza virus vaccine, inactivated 08/02/2014 Recorded Normal [facility] Comment on above: Result Comment: Elec tronically Signed By: Kylah Medina MD\.br\Date and Time Signed: 03/20/24 15:31 EDT Inpatient Patient Summaryon 03-20-2024 Inpatient Patient Summary [place] [id number] [facility] Clinical Discharge Instructions PERSON INFORMATION Name: DARIEL ZABALA PHYSICIANS Admitting Physician: Axel Hernández DO Attending Physician: Axel Hernández DO PCP: Kylah Medina MD Discharge Diagnosis: Trigger finger, right little finger Comment: PATIENT EDUCATION INFORMATION Instructions: Trigger Finger Medication Leaflets: Follow up: With: Address: When: Axel Hernández [address] [place], [place] [id number] Grokr (1) Comments: Keep scheduled appointment Type Location Start [facility] Surgery [facility] Surgical Services 03/26/2024 12:30 PM 03/26/2024 12:45 PM Confirmed Lab Draw [facility] 05/01/2024 9:00 AM 05/01/2024 9:20 AM Confirmed FM Medicare Wellness Subsequent [facility] 05/03/2024 8:00 AM 05/03/2024 9:00 AM Confirmed FM Open [facility] 05/03/2024 9:00 AM 05/03/2024 9:15 AM Confirmed [...] mg oral capsule) ubiquinone (CoQ10) Comment: Normal [facility] Outpatient Surgery Discharge Instructionon 03-20-2024 Outpatient Surgery Discharge Instruction [place] [id number] Patient Discharge Instructions PERSON INFORMATION Name: DARIEL [...] Follow up: With: Address: When: Axel Hernández [address] [place] [phone] Business (1) Comments: Keep scheduled appointment Type Location Start [facility] Surgery [facility] Surgical Services 03/26/2024 12:30 PM 03/26/2024 12:45 PM Confirmed FM Lab Draw [facility] 05/01/2024 9:00 AM 05/01/2024 9:20 AM Confirmed FM Medicare Wellness Subsequent [facility] 05/03/2024 8:00 AM 05/03/2024 9:00 AM Confirmed FM Open [facility] 05/03/2024 9:00 AM 05/03/2024 9:15 AM Confirmed [...] to serve you. Thank you for choosing [facility] HERE ARE THE MEDICATION CHANGES THAT [...] finger ca (more content not included)... Normal [facility] ECG 12-Leadon 03-12-2024 ECG 12-Lead [id number] EC#1.00TIFF Normal [facility] ED Note-Physicianon 03-12-20 ED Note-Physician [id number] A7#1.00TIFF Normal [facility] RAD - CT Reporton 03-12-[address] - [address] Report [id number] 20#1.00TIFF Normal [facility] RAD - CT Report [id number] A4#1.00TIFF Normal [facility] RAD - MISCon 03-12-2024 RAD - MISC [id number] 55#1.00TIFF Normal [facility] Ambulatory Visit Summaryon 0 03-08-2024 Ambulatory Visit [...] Services Tuesday 9:00 AM EDT With: Where: [facility] Invalid Interpretation Code [address] [place] [address]- \.br\ 2023 9:00 AM EDT \.br\ With: Kylah Medina MD\.br\ Where: [facility] Office/Clini c Noteon 03-08-2024 Family Medicine Office/Clinic Note HPI Staff Dariel is an 83 year old male presenting for surgical clearance Needs clearance and hold coumadin in writing and faxed to Dr Hernández at [phone] Note: he would really benefit for chronic care management if he qualifies ( he walks in here at least once a week with questions Date of surgery: March 26, 2024 Surgeon: Dr Hernández Hospital: [facility] Type of Surgery: rt little finger trigger [...] disorder) - Will send to Derm. Ordered: [facility] External Ambulatory Referral Follow-up No qualifying data [...] virus vaccine, inactivated 08/02/2014 Recorded Normal [facility] Comment on above: Result Comment: [...] numbers. This can be done either in [place] or metric measurements. Note that charts and online BMI calculators are available to help you find your BMI quickly and easily without having to do these calculations yourself. To calculate your BMI in [place] ([place] measurements: 1. Measure your weight in [...] for Disease Control and Prevention: www.cdc.gov ? [place] Heart [employer]: www.heart.org ? National Heart, Lung, and Blood [place]: www.nhlbi.nih.gov Summary ? Body mass index (BMI) is a number that is calculated from a person's weight and height. ? BMI may help estimate how much of a person's weight is composed of fat. BMI can help identify those who may be at higher risk for certain medical problems. ? BMI can be measured using [place] measurements or metric measurements. ? BMI charts are used to identify whether you are underweight, normal weight, overweight, or obese. This information is not intended to replace advice given to you by your health care provider. Make sure you discuss any questions you have with your health care provider. Document Revised: 07/23/2020 Document Reviewed: 05/30/2020 [employer] Patient Education ? 2022 [employer]. Normal [facility] Physician Referralon 024 Physician Referral [id number] 859#1.00TIFF Normal [facility] XR Chest 2 Viewson 4 XR Chest [...] mGy = na DAP = na Normal [facility] BMPon 03-06-2024 Anion gap [Moles/Vol] 10 mmol/L Normal 6-16 [facility] Comment on above: Performed By: #### 1 [id number], [id number], [id number] ####[facility] [address] [place] [address] Calcium [Mass/Vol] 9.1 mg/dL Normal 8.9-11.1 [facility] Comment on above: Performed By: #### 1 [id number], [id number], [id number] ####[facility] [address] [place] [address] Chloride [Moles/Vol] 102 mmol/L Normal 101-111 [facility] Comment on above: Performed By: #### 1 [id number], [id number], [id number] ####[facility] [address] [place] [address] CO2 [Moles/Vol] 28 mmol/L Normal 21-31 [facility] Comment on above: Performed By: #### 1 8390084, 3681060, 5383402 ####[facility] [address] [place] [address] Creatinine [Mass/Vol] 1.0 mg/dL Normal 0.5-1.3 [facility] Comment on above: Performed By: #### 1 9006361, 1656847, 1824594 ####[facility] [address] [place] [address] Glucose [Mass/Vol] 98 mg/dL Normal 55-199 [facility] Comment on above: Performed By: #### 1 8651900, 1278804, 0656653 ####[facility] [address] [place] [address] Potassium [Moles/Vol] 4.3 mmol/L Normal 3.5-5.3 [facility] Comment on above: Performed By: #### 1 7858537, 7878094, 4342689 ####[facility] [address] [place] [address] Sodium [Moles/Vol] 136 mmol/L Normal 135-145 [facility] Comment on above: Performed By: #### 1 6510420, 8393379, 1242068 ####[facility] [address] [place] [address] Urea nitrogen [Mass/Vol] 14 mg/dL Normal 5-21 [facility] Comment on above: Performed By: #### 1 0714356, 7321861, 5998113 ####[address] [address] [place] [address] Urea nitrogen/Creatinine [Mass ratio] 14 No Units Normal 10-20 [facility] Comment on above: Performed By: #### 1 9296241, 1552775, 9487503 ####[address] [address] CBC w/ Auto Diffon 4 Basophils/100 WBC (Bld) 1.0 % Normal 0.0-2.0 [facility] Comment on above: Performed By: #### 1 5253625, 7965829, 6934655 ####[address] [address] Basophils/Leukocytes Auto (Bld) [Pure # fraction] 0.0 E9/L Normal 0.0-0.2 [facility] Comment on above: Performed By: #### 1 9301815, 8091891, 1377206 ####[address] [address] Eosinophils (Bld) [#/Vol] 0.2 E9/L Normal 0.0-0.5 [facility] Comment on above: Performed By: #### 1 6017733, 0806046, 3666594 ####[address] [address] Eosinophils/100 WBC (Bld) 3.9 % Normal 0.0-8.0 [facility] Comment on above: Performed By: #### 1 2794531, 9465448, 3530048 ####[address] [address] Erythrocyte distribution width (RBC) [Ratio] 14.0 % Normal 10.9-14.2 [facility] Comment on above: Performed By: #### 1 0173767, 3495126, 5273967 ####[address] [address] Hematocrit (Bld) [Volume fraction] 39.1 % Normal 37.7-49.0 [facility] Comment on above: Performed By: #### 1 5824984, 2406656, 3509252 ####[address] [address] Hemoglobin (Bld) [Mass/Vol] 13.0 g/dL Low 13.5-17.5 [facility] Comment on above: Performed By: #### 1 9164818, 7918832, 8127882 ####[address] [address] Lymphocytes (Bld) [#/Vol] 1.4 E9/L Normal 1.0-4.0 [facility] Comment on above: Performed By: #### 1 7327892, 7832707, 4022310 ####[address] [address] Lymphocytes/100 WBC (Bld) 31.0 % Normal 14.0-50.0 [facility] Comment on above: Performed By: #### 1 7665597, 5454050, 3054215 ####[address] [address] MCH (RBC) [Entitic mass] 30.3 pg Normal 27.0-34.0 [facility] Comment on above: Performed By: #### 1 5735901, 9307003, 5044816 ####[address] [address] MCHC (RBC) [Mass/Vol] 33.3 g/dL Normal 31.4-36.0 [facility] Comment on above: Performed By: #### 1 4712259, 4657179, 8831410 ####[address] [address] MCV (RBC) [Entitic vol] 91.2 fL Normal 80.0-100.0 [facility] Comment on above: Performed By: #### 1 8539590, 5012919, 8166780 ####[facility] [address] [address] Monocytes (Bld) [#/Vol] 0.4 E9/L Normal 0.2-1.0 [facility] Comment on above: Performed By: #### 1 1878879, 3893666, 4898934 ####[address] [address] Neutrophils (Bld) [#/Vol] 2.5 E9/L Normal 2.0-7.5 [facility] Comment on above: Performed By: #### 1 3456247, 0436085, 2762366 ####[address] [address] Neutrophils/100 WBC (Bld) 55.3 % Normal 36.0-75.0 [facility] Comment on above: Performed By: #### 1 7953839, 0011645, 7428908 ####[place] [address] Platelet 157.0 E9/L Normal 150.0-500.0 [facility] Comment on above: Performed By: #### 1 8198391, 6908705, 8505594 ####[address] [address] Platelet mean volume (Bld) [Entitic vol] 9.7 fL Normal 6.4-10.8 [facility] Comment on above: Performed By: #### 1 0490842, 3651725, 1590104 ####[address] [address] RBC (Bld) [#/Vol] 4.3 E12/L Normal 4.3-5.9 [facility] Comment on above: Performed By: #### 1 2064784, 0990691, 1873768 ####[address] [address] WBC corrected for nucl RBC Auto (Bld) [#/Vol] 4.6 E9/L Normal 4.0-11.0 [facility] Comment on above: Performed By: #### 1 5945000, 8609373, 5077749 ####[facility] [address] [place] [address] CHEMISTRYOrdered By: SYSTEM SYSTEM on 03-06-2024 Anion [...] for Treatmenton 02-13 Consent for Treatment [id number] B4#1.00TIFF Normal [facility] HEMATOLOGYOrdered By: SYSTEM SYSTEM on 03-06-2024 Basophils/100 [...] 03-06-2024 eGFR 75 mL/min/1.73 m2 Normal >=59 [facility] Comment on above: Order Comment: Order added by Discern Expert. Performed By: #### 1 1689011, 0767285, 7656485 ####[facility] [address] [place] [address] Consultation Noteon 03-01-20 Consultation Note [id number] 5E#1.00TIFF Normal [facility] Lab Reportson 02-27-2024 Lab Reports [id number] E7#1.00TIFF Normal [facility] Office/Clini c Noteon 02-07-2024 Family Medicine Office/Clinic Note HPI Staff Dariel is an 83 year old male presenting for 2 month follow up DM Needs refills of levothyroxine and glimiperide to [facility] Do you have any of the following symptoms? Foot Exam: none Eye Exam: due Last A1C: Hgb A1C %: 5.6 % (12/01/23 14:31:00) Statin: pravastatin 40mg questions/concerns: saw kidney specialist (Rashad) about 3 weeks ago ( no report in file) was told to stop the omeprazole and meloxicam and cut salt tablets from tid to bid. Also says [facility] sent him a letter and said you [...] his left side. The patient saw his bead wrapper on 12/28/2023. His omeprazole and meloxicam were [...] cardiovascular disease) (I25.10: Atherosclerotic heart disease of [place] coronary artery without angina pectoris) He has [...] with voice recognition artificial intelligence software, specifically Volance, [email or web address] and or Kynded. Substitutions may have occurred due to the inherent limitations of voice recognition and artificial intelligence software. ATTESTATION: Documentation services were performed after patient or guardian consented to allow iSites to record this visit. MELISSA publication specialist and provider reviewed before signing. MELISSA: [...] in life (more content not included)... Normal [facility] Comment on above: Result Comment: Elec tronically [...] Appointments Tuesday 9:00 AM EDT With: Where: [facility] Invalid Interpretation Code [address] [place] [address]- \.br\ 2023 9:00 AM EDT \.br\ With: Kylah Medina MD\.br\ Where: [facility] Physician Referralon 024 Physician Referral [id number] 6#1.00TIFF [facility] Lab Reportson 01-05-2024 Lab Reports [id number] C1#1.00TIFF [facility] Transfer Inon 12-08-2023 Transfer In [id number] F9#1.00TIFF [facility] Auth for Release of Medical Recordson 12-06-2023 Auth for Release of Medical Records [id number] E#1.00TIFF Normal [facility] Family Medicine Office/Clini c Noteon 12-02-2023 Family Medicine Office/Clinic Note HPI Staff Dariel is an 83 year old male presenting [facility] Establish Care: History: a fib, [...] records from Dr. Jada Rene. 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 He and his family relocated from [place] to [place] 7 months ago, but they originally grew up in [place]. Review of Systems PHQ Score Initial Depression [...] cardiovascular disease) (I25.10: Atherosclerotic heart disease of [place] coronary artery without angina pectoris) He will [...] with voice recognition artificial intelligence software, specifically Volance, [email or web address] and or Kynded. Substitutions may have occurred due to the inherent limitations of voice recognition and artificial intelligence software. Documentation services were performed after patient or guardian consented to allow iSites to record this visit. MELISSA publication specialist and provider reviewed before signing. MELISSA: [...] Oral, Horace (more content not included)... Normal [facility] Comment on above: Result Comment: Elec tronically Signed By: Kylah Medina MD\.br\Date and Time Signed: 12/02/23 08:22 EST\.br\Electronically Co-Signed By: Allie Conway\.br\Date and Time Co-Signed: 12/01/23 17:49 EST Lab Reportson 12-02-2023 Lab Reports [id number] 1#1.00TIFF [facility] Ambulatory Visit [...] choosing us for your care. Normal [facility] CBC w/ Auto Diffon 01-18-202 4 NRBC Man 0 Normal 0-0 [facility] Comment on above: Performed By: #### 2 316999, 3954490, 21300680, 5013263, 285755620 #### [facility] [address] [place] [address] Basophil Absolute 0.0 E9/L Normal 0.0-0.2 [facility] Comment on above: Performed By: #### 2 504842, 8266129, 86039727, 0875392, 530412572 #### [facility] [address] [place] [address] Basophils/100 WBC (Bld) 0.4 % Normal 0.0-2.0 [facility] Comment on above: Performed By: #### 2 629347, 0838775, 53112044, 3506586, 570730461 #### [facility] [address] [place] [address] Eos Absolute 0.2 E9/L Normal 0.0-0.5 [facility] Comment on above: Performed By: #### 2 172591, 1181690, 57288282, 4394004, 088368467 #### [facility] [address] [place] [address] Eosinophils/100 WBC (Bld) 2.9 % Normal 0.0-8.0 [facility] Comment on above: Performed By: #### 2 545982, 8115984, 75024397, 3697241, 182236637 #### [facility] [address] [place] [address] Erythrocyte distribution width (RBC) [Ratio] 14.0 % Normal 10.9-14.2 [facility] Comment on above: Performed By: #### 2 714787, 4739392, 35242266, 7199922, 107234296 #### [facility] [address] [place] [address] Hematocrit (Bld) [Volume fraction] 37.0 % Low 37.7-49.0 [facility] Comment on above: Performed By: #### 2 709866, 6723876, 77860592, 5825384, 264903115 #### [facility] [address] [place] [address] Hemoglobin (Bld) [Mass/Vol] 12.1 g/dL Low 13.5-17.5 [facility] Comment on above: Performed By: #### 2 881955, 9543348, 30524169, 4331214, 314798442 #### [facility] [address] [place] [address] Lymph Absolute 1.8 E9/L Normal 1.0-4.0 [facility] Comment on above: Performed By: #### 2 236582, 3111339, 81660021, 1769572, 645569890 #### [facility] [address] [place], [place] [address] Lymphocytes/100 WBC (Bld) 29.3 % Normal 14.0-50.0 [facility] Comment on above: Performed By: #### 2 124323, 7176818, 34146894, 3622110, 580164157 #### [facility] [address] [place] [address] MCH (RBC) [Entitic mass] 30.8 pg Normal 27.0-34.0 [facility] Comment on above: Performed By: #### 2 956374, 8636892, 85557754, 0150908, 710231999 #### [facility] [address] [place] [address] MCHC (RBC) [Mass/Vol] 32.8 g/dL Normal 31.4-36.0 [facility] Comment on above: Performed By: #### 2 364385, 0849120, 75318235, 7770036, 687313181 #### [facility] [address] [place] [address] MCV (RBC) [Entitic vol] 93.8 fL Normal 80.0-100.0 [facility] Comment on above: Performed By: #### 2 389164, 1906843, 89138348, 9870244, 199367834 #### [facility] [address] [place] [address] [place] Absolute 0.5 E9/L Normal 0.2-1.0 [facility] Comment on above: Performed By: #### 2 855631, 6318910, 52144024, 3652263, 872359379 #### [facility] [address] [place] [address] Monocytes/100 WBC (Bld) 7.9 % Normal 4.0-14.0 [facility] Comment on above: Performed By: #### 2 978994, 4491259, 83870925, 1341481, 493305883 #### [facility] [address] [place] [address] Neutro Absolute 3.6 E9/L Normal 2.0-7.5 [facility] Comment on above: Performed By: #### 2 774902, 9430738, 68788157, 3072824, 382386635 #### [facility] [address] [place] [address] Neutro Auto 59.5 % Normal 36.0-75.0 [facility] Comment on above: Performed By: #### 2 222125, 0400157, 41154819, 0123190, 904868180 #### [facility] [address] [place] [address] Platelet 198.0 E9/L Normal 150.0-500.0 [facility] Comment on above: Performed By: #### 2 353818, 0481463, 16404339, 1692491, 110362353 #### [facility] [address] [place] [address] Platelet mean volume (Bld) [Entitic vol] 9.5 fL Normal 6.4-10.8 [facility] Comment on above: Performed By: #### 2 086589, 2011859, 89121482, 6385830, 942022208 #### [facility] [address] [place] [address] RBC 3.9 E12/L Low 4.3-5.9 [facility] Comment on above: Performed By: #### 2 582630, 3051773, 28092076, 5794773, 901669430 #### [facility] [address] [place] [address] WBC 6.0 E9/L Normal 4.0-11.0 [facility] Comment on above: Performed By: #### 2 322856, 9806649, 22714151, 4096352, 053356224 #### [facility] [address] [place] [address] CHEMISTRYOrdered By: Kate Sotomayor on 12-01-2023 U [...] (Bld) [Mass fraction] 5.6 % Normal <=5.9% [facility] ChemAutoSS CMPon 12-01-2023 Albumin [Mass/Vol] 3.9 g/dL Normal 3.3-5.0 [facility] Comment on above: Performed By: #### 2 486510, 0282711, 67054200, 7493525, 793460836 #### [facility] [address] [place] [address] Albumin/Globulin [Mass ratio] 1.6 {ratio} Normal 1.1-2.2 [facility] Comment on above: Performed By: #### 2 714899, 5800302, 62572223, 7142497, 687981542 #### [facility] [address] [place] [address] Alk Phos 75 Int._Unit/L Normal 21-98 [facility] Comment on above: Performed By: #### 2 954347, 1237238, 06652509, 1227269, 241464327 #### [facility] [address] [place] [address] ALT 12 Int._Unit/L Normal 6-46 [facility] Comment on above: Performed By: #### 2 161096, 0085243, 59511605, 2081945, 967072729 #### [facility] [address] [place] [address] Anion gap [Moles/Vol] 9 mmol/L Normal 6-16 [facility] Comment on above: Performed By: #### 2 835981, 7656992, 70055812, 7467251, 248419037 #### [facility] [address] [place] [address] AST 20 Int._Unit/L Normal 5-43 [facility] Comment on above: Performed By: #### 2 221108, 8180126, 04869289, 2851816, 550491384 #### [facility] [address] [place] [address] Bili Total 0.9 mg/dL Normal 0.0-1.1 [facility] Comment on above: Performed By: #### 2 192674, 9113816, 63658728, 6410343, 338160415 #### [facility] [address] [place] [address] BUN/Creat Ratio 10 No Units Normal 10-20 [facility] Comment on above: Performed By: #### 2 522933, 7534791, 05922605, 4194080, 808262129 #### [facility] [address] [place] [address] Calcium [Mass/Vol] 8.7 mg/dL Low 8.9-11.1 [facility] Comment on above: Performed By: #### 2 566383, 7883945, 51991914, 3506510, 597971430 #### [facility] [address] [place] [address] Chloride [Moles/Vol] 104 mmol/L Normal 101-111 [facility] Comment on above: Performed By: #### 2 151488, 5302905, 17993501, 7997682, 525871394 #### [facility] [address] [place] [address] CO2 [Moles/Vol] 30 mmol/L Normal 21-31 [facility] Comment on above: Performed By: #### 2 807752, 7997025, 84855352, 7776817, 023146693 #### [facility] [address] [place] [address] Creatinine [Mass/Vol] 1.1 mg/dL Normal 0.5-1.3 [facility] Comment on above: Performed By: #### 2 292367, 2486915, 66336712, 2922819, 592089879 #### [facility] [address] [place] [address] Globulin (S) [Mass/Vol] 2.5 g/dL Normal 1.4-4.0 [facility] Comment on above: Performed By: #### 2 213408, 7893713, 82362649, 2355180, 555764342 #### [facility] [address] [place] [address] Glucose [Mass/Vol] 72 mg/dL Normal 55-199 [facility] Comment on above: Performed By: #### 2 184544, 5654983, 95311773, 4464855, 418567514 #### [facility] [address] [place] [address] Potassium [Moles/Vol] 4.2 mmol/L Normal 3.5-5.3 [facility] Comment on above: Performed By: #### 2 769860, 3049692, 66515426, 1115359, 570787012 #### [facility] [address] [place] [address] Protein [Mass/Vol] 6.4 g/dL Normal 6.0-7.8 [facility] Comment on above: Performed By: #### 2 446920, 3413027, 12338252, 5184474, 515843561 #### [facility] [address] [place] [address] Sodium [Moles/Vol] 139 mmol/L Normal 135-145 [facility] Comment on above: Performed By: #### 2 384697, 6347126, 69772876, 8682478, 477624102 #### [facility] [address] [place] [address] Urea nitrogen [Mass/Vol] 11 mg/dL Normal 5-21 [facility] Comment on above: Performed By: #### 2 726385, 2664198, 30963834, 0682928, 299247822 #### [facility] [address] [place] [address] HEMATOLOGYOrdered By: SYSTEM SYSTEM on 12-01-2023 Basophil [...] Normal 80.0 - 100.0 fL Remisol Heme [place] Absolute 0.5 E9/L Normal 0.2 - 1.0 [...] 1 Normal 0 - 0 Remisol Heme [id number] 12-01-2023 HbA1c (Bld) [Mass fraction] 5.6 % Normal <=5.9 [facility] Comment on above: Performed By: #### 2 417769, 8939920, 57473373, 7878172, 573663943 ####[facility] [address] [place] [address] Lipid Panelon 12-01-2023 Cholesterol [Mass/Vol] 156 mg/dL Normal 120-200 [facility] Comment on above: Performed By: #### 2 852842, 3445925, 76819175, 7160328, 020854836 #### [facility] [address] [place] [address] Cholesterol in HDL [Mass/Vol] 51 mg/dL Invalid Interpretation Code [facility] Comment on above: Result Comment: '>= 60 LOW RISK' '<= 40 HIGH RISK' Performed By: #### 2 392834, 7942757, 62483496, 1521917, 383762434 #### [facility] [address] [place] [address] Cholesterol in LDL [Mass/Vol] 89 mg/dL Normal <=129 [facility] Comment on above: Performed By: #### 2 745251, 7956102, 34151145, 5936527, 463363128 #### [facility] [address] [place] [address] Cholesterol in VLDL [Mass/Vol] 18 mg/dL Normal 7-40 [facility] Comment on above: Performed By: #### 2 189419, 8648008, 25176894, 1898510, 645583670 #### [facility] [address] [place] [address] Triglyceride [Mass/Vol] 92 mg/dL Normal <=149 [facility] Comment on above: Performed By: #### 2 311505, 3434705, 08512647, 4482569, 883740343 #### [facility] [address] [place] [address] U Microalbon 12-01-2023 U Microalb <2.0 Normal 0.0-19.0 [facility] Comment on above: Performed By: #### 1 527007519, 40622685 ####[facility] [address] [place] [address] U Protein/Creat Ratioon 11-14 U Creatinine 62.5 mg/dL Invalid Interpretation Code [facility] Comment on above: Performed By: #### 1 780011748, 42741168 ####[facility] [address] [place] [address] U Prot/Creat Ratio NOT CALCULATED Invalid Interpretation Code .00-200.00 [facility] Comment on above: Performed By: #### 1 890029055, 02998811 ####[facility] [address] [place] [address] Ur Total Protein <6.0 Invalid Interpretation Code [facility] Comment on above: Performed By: #### 1 888207306, 83208845 ####[facility] [address] [place] [address] eGFRon 12-01-2023 eGFR 67 mL/min/1.73 m2 Normal >=59 [facility] Comment on above: Order Comment: Order added by Discern Expert. Performed By: #### 2 728269, 5826268, 33204397, 4186355, 713672645 #### [facility] [address] [place] [address] Basic Metabolic Panelon 10-15 Anion gap [Moles/Vol] 8.1 mmol/L Normal 6.0-15.0 [facility] Comment on above: Order Comment: Reaso n for Exam Hyponatremia Performed By: #### C BC, BMP #### [facility] [address] [place] [id number] [place] Calcium [Mass/Vol] 9.3 mg/dL Normal 8.6-10.3 [facility] Comment on above: Order Comment: Reaso n for Exam Hyponatremia Result Comment: PERF ORMED BY: [place] [id number] PATHOLOGIST PLUMBER ASSISTANT DANNY NEAL M.D. Performed By: #### C BC, BMP #### [facility] [address] [place] [address] [place] Chloride [Moles/Vol] 102 mmol/L Normal 98-107 [facility] [employer] Other Comment on above: Order Comment: Reaso n for Exam Hyponatremia Performed By: #### C BC, BMP #### [facility] [address] [place] [address] [place] CO2 [Moles/Vol] 32.4 mmol/L High 21.0-31.0 [facility] Comment on above: Order Comment: Reaso n for Exam Hyponatremia Performed By: #### C BC, BMP #### [address] Creatinine [Mass/Vol] 1.07 mg/dL Normal 0.70-1.30 [facility] Comment on above: Order Comment: Reaso n for Exam Hyponatremia Performed By: #### C BC, BMP #### [place] [address] [place] GFR/1.73 sq M.predicted MDRD (S/P/Bld) [Vol rate/Area] mL/min/{1.73_m2} Normal [employer] Other Comment on above: Order Comment: Reaso n for Exam Hyponatremia Performed By: #### C BC, BMP #### [address] Glucose [Mass/Vol] 93 mg/dL Normal 70-100 [employer] Other Comment on above: Order Comment: Reaso n for Exam Hyponatremia Result Comment: [place] Glucose Reference Range is dependent on time and content of last meal. Glucose of more than 200 mg/dL in a nonstressed, ambulatory subject supports the diagnosis of Diabetes Mellitus. ADA recommended reference range Performed By: #### C BC, BMP #### [place] [address] [place] Potassium [Moles/Vol] 4.5 mmol/L Normal 3.5-5.1 [facility] Comment on above: Order Comment: Reaso n for Exam Hyponatremia Performed By: #### C BC, BMP #### [place] [address] [place] Sodium [Moles/Vol] 138 mmol/L Normal 136-145 [employer] Other Comment on above: Order Comment: Reaso n for Exam Hyponatremia Performed By: #### C BC, BMP #### [address] [address] [place] Urea nitrogen [Mass/Vol] 13 mg/dL Normal 7-25 [employer] Other Comment on above: Order Comment: Reaso n for Exam Hyponatremia Performed By: #### Kasey BROOKS, BMP #### [facility] [address] Calcium [Mass/Vol] 9.1306355 mg/dL Normal 8.6-10.3 mg/ dL [employer] [facility] [employer] Other CO2 [Moles/Vol] 32.67721314 mmol/L High 21.0-31.0 mm ol/L [employer] Other Creatinine [Mass/Vol] 1.41571128 mg/dL Normal 0.70-1.30 mg/dL [employer] Other Potassium [Moles/Vol] 4.08679281 mmol/L Normal 3.5-5.1 mmol/L [employer] [facility] [employer] Other Complete Blood Count Auto Di ffon 11-02-2023 Basophils (Bld) [#/Vol] 0.1 10*3/uL Normal 0.0-0.2 [facility] Comment on above: Order Comment: Reaso n for Exam Atrial fibrillation Result Comment: PERF ORMED BY: [place] [address] PATHOLOGIST PLUMBER ASSISTANT DANNY NEAL M.D. Performed By: #### Kasey BROOKS, BMP #### [facility] [address] [place] [address] [place] Basophils/100 WBC (Bld) 1.0 % Normal . [facility] Comment on above: Order Comment: Reaso n for Exam Atrial fibrillation Performed By: #### C CECILIA, BMP #### [facility] [address] [place] [address] [place] Eosinophils (Bld) [#/Vol] 0.1 10*3/uL Normal 0.0-0.45 [facility] Comment on above: Order Comment: Reaso n for Exam Atrial fibrillation Performed By: #### Kasey BROOKS, BMP #### [address] Eosinophils/100 WBC (Bld) 2.1 % Normal . [facility] Comment on above: Order Comment: Reaso n for Exam Atrial fibrillation Performed By: #### C BC, BMP #### [address] Erythrocyte distribution width (RBC) [Ratio] 14.0 % Normal 12.0-14.8 [facility] Comment on above: Order Comment: Reaso n for Exam Atrial fibrillation Performed By: #### C BC, BMP #### [address] Hematocrit (Bld) [Volume fraction] 38.8 % Normal 38.8-50.0 [facility] Comment on above: Order Comment: Reaso n for Exam Atrial fibrillation Performed By: #### C BC, BMP #### [address] Hemoglobin (Bld) [Mass/Vol] 13.2 g/dL Normal 13.0-17.0 [facility] Comment on above: Order Comment: Reaso n for Exam Atrial fibrillation Performed By: #### C BC, BMP #### [address] Lymphocytes (Bld) [#/Vol] 1.3 10*3/uL Normal 1.00-4.8 [facility] Comment on above: Order Comment: Reaso n for Exam Atrial fibrillation Performed By: #### C BC, BMP #### [address] Lymphocytes/100 WBC (Bld) 21.8 % Normal . [facility] Comment on above: Order Comment: Reaso n for Exam Atrial fibrillation Performed By: #### C BC, BMP #### [address] MCH (RBC) [Entitic mass] 31.5 pg Normal 27.5-35.2 [facility] Comment on above: Order Comment: Reaso n for Exam Atrial fibrillation Performed By: #### C BC, BMP #### [facility] [address] MCV (RBC) [Entitic vol] 92.7 fL Normal 83.5-101 [facility] Comment on above: Order Comment: Reaso n for Exam Atrial fibrillation Performed By: #### C BC, BMP #### [facility] [address] Mean Corpuscular HGB Conc 34.0 g/dL Normal 32.5-35.6 [facility] Comment on above: Order Comment: Reaso n for Exam Atrial fibrillation Performed By: #### C BC, BMP #### [address] Monocytes (Bld) [#/Vol] 0.5 10*3/uL Normal 0.0-0.8 [facility] Comment on above: Order Comment: Reaso n for Exam Atrial fibrillation Performed By: #### C BC, BMP #### [place] [address] [place] Monocytes/100 WBC (Bld) 8.5 % Normal . [facility] Comment on above: Order Comment: Reaso n for Exam Atrial fibrillation Performed By: #### C BC, BMP #### [address] Neutrophils (Bld) [#/Vol] 4.0 10*3/uL Normal 1.8-7.7 [facility] Comment on above: Order Comment: Reaso n for Exam Atrial fibrillation Performed By: #### C BC, BMP #### [place] [address] [place] Neutrophils/100 WBC (Bld) 66.6 % Normal . [facility] Comment on above: Order Comment: Reaso n for Exam Atrial fibrillation Performed By: #### C BC, BMP #### [address] NRBC% 0.1 /100{WBC} Normal 0-0.5 [facility] Comment on above: Order Comment: Reaso n for Exam Atrial fibrillation Performed By: #### C BC, BMP #### [facility] [address] Platelet mean volume (Bld) [Entitic vol] 9.4 fL Normal 6.6-10.1 [facility] Comment on above: Order Comment: Reaso n for Exam Atrial fibrillation Performed By: #### C BC, BMP #### [facility] [address] [place] [id number] [facility] Platelets (Bld) [#/Vol] 153 10*3/uL Normal 150-450 [facility] Other Comment on above: Order Comment: Reaso n for Exam Atrial fibrillation Performed By: #### C BC, BMP #### [facility] [address] RBC (Bld) [#/Vol] 4.19 10*6/uL Normal 3.90-5.60 [facility] Other Comment on above: Order Comment: Reaso n for Exam Atrial fibrillation Performed By: #### C BC, BMP #### [facility] [address] [place] [address] [place] WBC (Bld) [#/Vol] 6.1 10*3/uL Normal 4.1-10.5 [facility] Comment on above: Order Comment: Reaso n for Exam Atrial fibrillation Performed By: #### C BC, BMP #### [facility] [address] [place] [address] [place] Basophils (Bld) [#/Vol] 0.166541484 10*3/uL Normal 0.0-0.2 10*3/uL [facility] Other Basophils/100 WBC (Bld) 1.000 % . % [facility] Other Eosinophils (Bld) [#/Vol] 0.804302503 10*3/uL Normal 0.0-0.45 10*3/uL [facility] Other Eosinophils/100 WBC (Bld) 2.100 % . % [facility] Other Erythrocyte distribution width (RBC) [Ratio] 14.000 % Normal 12.0-14.8 % [facility] Other Hematocrit (Bld) [Volume fraction] 38.800 % Normal 38.8-50.0 % [facility] Other Hemoglobin (Bld) [Mass/Vol] 13.175795 g/dL Normal 13.0-17.0 g/dL [facility] Other Lymphocytes (Bld) [#/Vol] 1.893927875 10*3/uL Normal 1.00-4.8 10*3/uL [facility] Other Lymphocytes/100 WBC (Bld) 21.800 % . % [facility] Other MCH (RBC) [Entitic mass] 31.5000 pg Normal 27.5-35.2 pg [facility] Other MCV (RBC) [Entitic vol] 92.7000 fL Normal 83.5-101 fL [facility] Other Monocytes (Bld) [#/Vol] 0.010130539 10*3/uL Normal 0.0-0.8 10*3/uL [facility] Other Monocytes/100 WBC (Bld) 8.500 % . % [facility] Other Neutrophils (Bld) [#/Vol] 4.159151203 10*3/uL Normal 1.8-7.7 10*3/uL [facility] Other Neutrophils/100 WBC (Bld) 66.600 % . % [facility] Other Platelet mean volume (Bld) [Entitic vol] 9.4000 fL Normal 6.6-10.1 fL [facility] Other WBC (Bld) [#/Vol] 6.431863397 10*3/uL Normal 4.1-10.5 10*3/uL [facility] Other Complete Blood Count Auto Diff 6.1 10*3/uL Normal 4.1-10.5 10*3/uL [facility] Other Complete Blood Count Auto Diff 34.0 g/dL Normal 32.5-35.6 g/dL [facility] Other Complete Blood Count Auto Diff 0.1 /100{WBC} Normal 0-0.5 /100{WBC} [facility] Other PSA Screen (Yearly Only)on 01-03-2023 PSA Screen (Yearly Only) 1.940 ng/mL Normal 0.000-4.000 [facility] Comment on above: Order Comment: Reaso n for Exam Prostate cancer screening Result Comment: Seri al tumor marker results determined by assays using different manufacturers or methods may not be comparable. [facility] cage loader and method: Register My Info DXI, CHEMILUMINESCENT IMMUNOASSAY. PERFORMED BY: [place] [address] PATHOLOGIST PLUMBER ASSISTANT DANNY NEAL M.D. Performed By: #### P SAS #### [facility] [address] [place] [address] [facility] Prothrombin Time INRon 06-16 INR Coag (PPP) [Relative time] 2.4 {INR} Normal [facility] Other Comment on above: Result Comment: INR [...] heart valves: 3 - 4.5 PERFORMED BY: [place] [address] PATHOLOGIST PLUMBER ASSISTANT DANNY NEAL M.D. Performed By: #### P T #### [address] PT Coag (PPP) [Time] 27.8 s High 9.0-12.9 [facility] Comment on above: Performed By: #### P T #### [facility] 1111 [place] [address] [facility] PT Coag (PPP) [Time] 27.800 s High 9.0-12.9 s [facility] Other Coding Summaryon 05-12-2020 Coding Summary CODING DATE: 05/12/2020 FINAL [place] STATUS: Home PAYOR: Medicare MC ADMIT DX: [...] Horan Date Saved: 05/12/2020 02:18 pm Normal [facility] ED Clinical Summaryon 2019 ED Clinical Summary [facility] ? Urgent Care [address] [place] [address] Clinical Summary PERSON INFORMATION Name: DARIEL ZABALA Age: 80 Years Sex: MALE : 1940 MRN: Acct#: Visit Reason: UC - Ear Problem; BILAT EAR PROBLEM Arrival: 05/08/2020 09:32:00 Discharge: 05/08/2020 10:15:00 LOS: 000 00:43 Check In: 05/08/2020 09:32:00 Checkout: 05/08/2020 10:15:00 Address: [address] [place] [id number] PCP: Provider, Unlisted PROVIDER INFORMATION Provider Role [...] Adult Follow-Up: With: Address: When: Andrés Arellano [facility], [address] [place] [id number] Business (1) Comments: Please follow-up with your Doctor or Dr. Arellano, Medical Doctor car installations supervisor, call their offices and make ointment to be seen in 3 days or sooner for continued care, please purchase [id number] Debrox which helps breakdown earwax, take all your medications as previously prescribed, drink plenty of water for hydration, and return back to urgent care center for any worsening symptoms, concerns, or complications. DIAGNOSIS: 1:Impacted cerumen of both ears Patient Understands: Yes - Patient/family/palliative care nurse verbalizes understanding of instructions given Comment: Normal [facility] ED Patient Summaryon 020 ED Patient Summary [facility] ? Urgent Care [address] [place], [place] [id number] PATIENT DISCHARGE INSTRUCTIONS Patient Information Name: DARIEL ZABALA Age: 80 Years Date of : 1940 Reason For Visit: UC - Ear Problem; BILAT EAR PROBLEM Arrival Time: 05/08/2020 09:32:00 Primary Care Physician: Provider, Unlisted Attending Physician: Larry Billingsley PA-C Comment: Patient Education With: Address: When: Andrés [facility], [address] [place] [id number] Business (1) Comments: Please follow-up with your Doctor or Dr. Arellano, Medical Doctor car installations supervisor, call their offices and make ointment to be seen in 3 days or sooner for continued care, please purchase [id number] Debrox which helps breakdown earwax, take all [...] Follow these instructions at home: ? Take nqyk-aom-japyqmh and prescription medicines only as told by [...] clean them according to instructions from the cage loader and your health care provider. Contact a [...] 12/08/2005 Document Revised: 10/12/2018 Document Reviewed: 01/11/2018 [employer] Patient Education ? 2019 [employer] Medication Information: The exam and treatment you received today in the [facility] Emergency Department were for an urgent problem and are not intended as complete care. It is important for you to follow up with a doctor, nurse practitioner, or physician?s assistant speech language pathologist for ongoing care. If your symptoms become [...] so we can reach you if necessary. [facility] has provided you with a complete list of medications post discharge. Please inform your concrete carpenter/provider of your visit and for further instruction [...] both ears (H61.23) UC - Ear Problem ([id number]) If you received any narcotics, sedation, or [...] for Disease Control and Prevention July 2014 [facility] Patient Handouton 05-08-2020 Patient Handout Patient [...] Follow these instructions at home: ? Take lkld-pjz-aezsppb and prescription medicines only as told by [...] clean them according to instructions from the cage loader and your health care provider. Contact a [...] 12/08/2005 Document Revised: 10/12/2018 Document Reviewed: 01/11/2018 [employer] Interactive Patient Education ? 2019 [employer] Normal [facility] Recordon 05-08- 020 Urgent Care Record [facility] ? Urgent Care [address] [id number] PATIENT DISCHARGE INSTRUCTIONS Patient Information Name: DARIEL ZABALA Age: 80 Years Date of : 1940 Reason For Visit: UC - Ear Problem; BILAT EAR PROBLEM Arrival Time: 05/08/2020 09:32:00 Primary Care Physician: Provider, Unlisted Attending Physician: Larry Billingsley PA-C Comment: Visit Diagnosis: Diagnoses This Visit Impacted cerumen of both ears (H61.23) UC - Ear Problem ([id number]) If you received any narcotics, sedation, or [...] When: Andrés Arellano [facility], [address] [place] [phone] Business (1) Comments: Please follow-up with your Doctor or Dr. Arellano, Medical Doctor car installations supervisor, call their offices and make ointment to be seen in 3 days or sooner for continued care, please purchase ngyq-vdy-wlgypyj Debrox which helps breakdown earwax, take all your medications as previously prescribed, drink plenty of water for hydration, and return back to urgent care center for any worsening symptoms, concerns, or complications. Medication Information: The exam and treatment you received today in the [facility] were for an urgent problem and are not intended as complete care. It is important for you to follow up with a doctor, nurse practitioner, or physician?s assistant speech language pathologist for ongoing care. If your symptoms become [...] so we can reach you if necessary. [facility] has provided you with a complete list of medications post discharge. Please inform your concrete carpenter/provider of your visit and for further instruction [...] Follow these instructions at home: ? Take qelu-suu-vqbcpsg and prescription medicines only as told by [...] clean them according to instructions from the cage loader and your health care provider. Contact a [...] 12/08/2005 Document Revised: 10/12/2018 Document Reviewed: 01/11/2018 [employer] Patient Education ? 2019 [employer] Viruses or Bacteria What?s got you [...] for Disease Control and Prevention July 2014 [facility] Vital Signs Date Time Vital Sign Value Performing Clinician Facility 11-26-2024 10:27-0500 Body mass index (BMI) [Ratio] 24.74 kg/m2 Emiliano Escamilla MD Work Phone: [facility] 11-26-2024 10:27-0500 Body weight 77.11 kg Emiliano Escamilla MD Work Phone: [facility] 11-26-2024 10:27-0500 Diastolic blood pressure 73 mm[Hg] Emiliano Escamilla MD Work Phone: [facility] 11-26-2024 10:27-0500 Heart rate 87 /min Emiliano Escamilla MD Work Phone: [facility] 11-26-2024 10:27-0500 Systolic blood pressure 148 mm[Hg] Emiliano Escamilla MD Work Phone: [facility] 11-19-2024 14:27-0500 Diastolic blood pressure 82 mm[Hg] Axel Hernández [facility] 11-19-2024 14:27-0500 Heart rate 66 /min Axel Hernández [facility] 11-19-2024 14:27-0500 Mean blood pressure 103 mm[Hg] Axel Hernández [facility] 11-19-2024 14:27-0500 Respiratory rate 18 /min Axel Hernández [facility] 11-19-2024 14:27-0500 SaO2% (BldA) [Mass fraction] 95 % Axel Hernández [facility] 11-19-2024 14:27-0500 Systolic blood pressure 144 mm[Hg] Axel Hernández [facility] 11-19-2024 13:23-0500 Blood Pressure Location Axel Hernández [facility] 11-19-2024 13:23-0500 Body temperature 96.8 [degF] Axel Edgar [facility] 11-19-2024 13:23-0500 Diastolic blood pressure 69 mm[Hg] Axel Edgar [facility] 11-19-2024 13:23-0500 Heart rate 63 /min Axel Edgar [facility] 11-19-2024 13:23-0500 Mean blood pressure 92 mm[Hg] Axel Edgar [facility] 11-19-2024 13:23-0500 Respiratory rate 20 /min Axel Edgar [facility] 11-19-2024 13:23-0500 SaO2% (BldA) [Mass fraction] 99 % Axel Edgar [facility] 11-19-2024 13:23-0500 Systolic blood pressure 139 mm[Hg] Axel Edgar [facility] 11-19-2024 13:05-0500 Body temperature 97.34 [degF] Axel Edgar [facility] 11-19-2024 13:05-0500 Diastolic blood pressure 69 mm[Hg] Axel Edgar [facility] 11-19-2024 13:05-0500 Heart rate 65 /min Axel Edgar [facility] 11-19-2024 13:05-0500 Mean blood pressure 87 mm[Hg] Axel Hernández [facility] 11-19-2024 13:05-0500 Respiratory rate 16 /min Axel Edgar [facility] 11-19-2024 13:05-0500 SaO2% (BldA) [Mass fraction] 97 % Axel Hernández [facility] 11-19-2024 13:05-0500 Systolic blood pressure 122 mm[Hg] Axel Hernández [facility] 11-19-2024 12:40-0500 Body temperature 97.7 [degF] Axel Hernández [facility] 11-19-2024 12:35-0500 Respiratory rate 12 /min Axel Hernández [facility] 11-19-2024 12:30-0500 Body temperature 96.8 [degF] Axel Hernández [facility] 11-19-2024 12:30-0500 Respiratory rate 13 /min Axel Hernández [facility] 11-19-2024 12:25-0500 Body temperature 96.8 [degF] Axel Hernández [facility] 11-19-2024 12:25-0500 Respiratory rate 15 /min Axel Hernández [facility] 11-19-2024 12:20-0500 Body temperature 96.8 [degF] Axel Hernández [facility] 11-19-2024 09:55-0500 Mean blood pressure 85 mm[Hg] Axel Hernández [facility] 11-19-2024 09:52-0500 Mean blood pressure 79 mm[Hg] Axel Hernández [facility] 10-30-2024 10:36-0500 Diastolic blood pressure 67 mm[Hg] Axel Hernández [facility] 10-30-2024 10:36-0500 Heart rate 57 /min Axel Hernández [facility] 10-30-2024 10:36-0500 Mean blood pressure 86 mm[Hg] Axel Hernández [facility] 10-30-2024 10:36-0500 Systolic blood pressure 124 mm[Hg] Axel Hernández [facility] 10-30-2024 10:34-0500 Heart rate 56 /min Axel Hernández [facility] 10-30-2024 10:34-0500 SaO2% (BldA) [Mass fraction] 100 % Axel Hernández [facility] 10-30-2024 10:34-0500 Diastolic blood pressure 83 mm[Hg] Axel Hernández [facility] 10-30-2024 10:34-0500 Mean blood pressure 105 mm[Hg] Axel Hernández [facility] 10-30-2024 10:34-0500 Systolic blood pressure 148 mm[Hg] Axel Edgar [facility] 10-03-2024 10:58-0500 Body height 176.5 cm Axel Edgar ELLIS Work Phone: [facility] 10-03-2024 10:58-0500 Body mass index (BMI) [Ratio] 26.64 kg/m2 Axel Edgar ELLIS Work Phone: [facility] 10-03-2024 10:58-0500 Body temperature 98.1 [degF] Axel Edgar ELLIS Work Phone: [facility] 10-03-2024 10:58-0500 Body weight 83.01 kg Axel Edgar ELLIS Work Phone: [facility] 08-28-2024 14:47-0400 Blood Pressure Location Davie Vargas [facility] [place] 08-28-2024 14:47-0400 Diastolic blood pressure 75 mm[Hg] Davie Vargas [facility] 08-28-2024 14:47-0400 Heart rate 65 /min Davie Vargas [facility] [place] 08-28-2024 14:47-0400 Respiratory rate 16 /min Davie Vargas [facility] [place] 08-28-2024 14:47-0400 Systolic blood pressure 119 mm[Hg] Davie Vargas [facility] [place] 06-11-2024 12:48-0400 Diastolic blood pressure 78 mm[Hg] Kashif Kirnus [facility] 06-11-2024 12:48-0400 Heart rate 70 /min Kashif Kirnus [facility] 06-11-2024 12:48-0400 Respiratory rate 18 /min Kashif Kirnus [facility] 06-11-2024 12:48-0400 SaO2% (BldA) [Mass fraction] 97 % Kashif Kirnus [facility] 06-11-2024 12:48-0400 Systolic blood pressure 138 mm[Hg] Kashif Kirnus [facility] 05-30-2024 13:31-0400 Blood Pressure Location Dixon Dubose [facility] 05-30-2024 13:31-0400 Diastolic blood pressure 70 mm[Hg] Dixon Dubose [facility] 05-30-2024 13:31-0400 Heart rate 75 /min Dixon Dubose [facility] 05-30-2024 13:31-0400 Respiratory rate 18 /min Dixon Dubose [facility] 05-30-2024 13:31-0400 SaO2% (BldA) [Mass fraction] 95 % Dixon Dubose [facility] 05-30-2024 13:31-0400 Systolic blood pressure 130 mm[Hg] Dixon Dubose [facility] 04-20-2024 13:17-0400 Diastolic blood pressure 78 mm[Hg] Kashif Barnett [facility] 04-20-2024 13:17-0400 Heart rate 62 /min Kashif Barnett [facility] 04-20-2024 13:17-0400 SaO2% (BldA) [Mass fraction] 97 % Kashif Barnett [facility] 04-20-2024 13:17-0400 Systolic blood pressure 138 mm[Hg] Kashif Barnett [facility] 03-26-2024 14:30-0400 Diastolic blood pressure 64 mm[Hg] Axel Hernández [facility] 03-26-2024 14:30-0400 Heart rate 50 /min Axel Hernández [facility] 03-26-2024 14:30-0400 Respiratory rate 16 /min Axel Hernández [facility] 03-26-2024 14:30-0400 SaO2% (BldA) [Mass fraction] 98 % Axel Hernández [facility] 03-26-2024 14:30-0400 Systolic blood pressure 128 mm[Hg] Axel Hernández [facility] 03-26-2024 13:31-0400 Heart rate 54 /min Axel Hernández [facility] 03-26-2024 13:31-0400 SaO2% (BldA) [Mass fraction] 97 % Axel Hernández [facility] 03-26-2024 13:31-0400 Respiratory rate 16 /min Axel Hernández [facility] 03-26-2024 13:30-0400 Body temperature 97.34 [degF] Axel Edgar [facility] 03-26-2024 13:29-0400 Blood Pressure Location Axel Hernández [facility] 03-26-2024 13:29-0400 Diastolic blood pressure 70 mm[Hg] Axel Edgar [facility] 03-26-2024 13:29-0400 Mean blood pressure 88 mm[Hg] Axel Edgar [facility] 03-26-2024 13:29-0400 Systolic blood pressure 125 mm[Hg] Axel Edgar [facility] 03-26-2024 13:20-0400 Body temperature 97.52 [degF] Axel Edgar [facility] 03-26-2024 13:20-0400 Diastolic blood pressure 63 mm[Hg] Axel Edgar [facility] 03-26-2024 13:20-0400 Heart rate 54 /min Axel Edgar [facility] 03-26-2024 13:20-0400 Mean blood pressure 77 mm[Hg] Axel Edgar [facility] 03-26-2024 13:20-0400 Respiratory rate 15 /min Axel Edgar [facility] 03-26-2024 13:20-0400 SaO2% (BldA) [Mass fraction] 97 % Axle Edgar [facility] 03-26-2024 13:20-0400 Systolic blood pressure 104 mm[Hg] Axel Hernández [facility] 03-26-2024 13:15-0400 Mean blood pressure 73 mm[Hg] Axel Edgar [facility] 03-26-2024 13:15-0400 Respiratory rate 15 /min Axel Edgar [facility] 03-26-2024 13:10-0400 Mean blood pressure 72 mm[Hg] Axel Edgar [facility] 03-26-2024 13:10-0400 Respiratory rate 11 /min Axel Edgar [facility] 03-26-2024 12:55-0400 Body temperature 97.52 [degF] Axel Edgar [facility] 03-26-2024 12:50-0400 Respiratory rate 1 /min Axel Edgar [facility] 03-26-2024 09:36-0400 Blood Pressure Location Axel Edgar [facility] 03-26-2024 09:36-0400 Mean blood pressure 112 mm[Hg] Axel Edgar [facility] 03-26-2024 09:34-0400 Mean blood pressure 97 mm[Hg] Axel Edgar [facility] 03-26-2024 09:34-0400 Body temperature 97.34 [degF] Axel Edgar [facility] 03-26-2024 09:34-0400 Blood Pressure Location Axel Edgar [facility] 03-26-2024 09:34-0400 Heart rate 50 /min Axel Edgar [facility] 03-06-2024 08:11-0400 Blood Pressure Location Axel Hernández [facility] 03-06-2024 08:11-0400 Diastolic blood pressure 74 mm[Hg] Axel Hernández [facility] 03-06-2024 08:11-0400 Heart rate 56 /min Axel Hernández [facility] 03-06-2024 08:11-0400 Mean blood pressure 98 mm[Hg] Axel Hernández [facility] 03-06-2024 08:11-0400 Systolic blood pressure 147 mm[Hg] Axel Hernández [facility] 03-06-2024 08:11-0400 Heart rate 57 /min Axel Hernández [facility] 03-06-2024 08:11-0400 SaO2% (BldA) [Mass fraction] 98 % Axel Hernández [facility] 03-06-2024 08:10-0400 Blood Pressure Location Axel Hernández [facility] 03-06-2024 08:10-0400 Body temperature 98.06 [degF] Axel Hernández [facility] 03-06-2024 08:10-0400 Diastolic blood pressure 73 mm[Hg] Axel Hernández [facility] 03-06-2024 08:10-0400 Mean blood pressure 92 mm[Hg] Axel Hernández [facility] 03-06-2024 08:10-0400 Systolic blood pressure 129 mm[Hg] Axel Hernández [facility] 03-06-2024 08:10-0400 Respiratory rate 18 /min Axel Hernández [facility] 11-18-2023 11:00-0500 Body height 180.34 cm Jada Rene Other [employer] Other 11-18-2023 11:00-0500 Body mass index (BMI) [Ratio] 25.38 kg/m2 Jada Rene Other [employer] Other 11-18-2023 11:00-0500 Body temperature 97.6 [degF] Jada Rene Other [employer] Other 11-18-2023 11:00-0500 Body weight 82.56 kg Jadaendy Rene Other [employer] Other 11-18-2023 11:00-0500 Diastolic blood pressure 80 mm[Hg] Jada Rene Other [employer] Other 11-18-2023 11:00-0500 Respiratory rate 18 /min Jada Rene Other [employer] Other 11-18-2023 11:00-0500 SaO2% (BldA) [Mass fraction] 99 % Jada Rene Other [facility] Other 11-18-2023 11:00-0500 Systolic blood pressure 132 mm[Hg] Jada Rene Other [facility] Other 11-02-2023 13:00-0500 Body height 180.34 cm Jada Rene Other [facility] Other 11-02-2023 13:00-0500 Body mass index (BMI) [Ratio] 24.4 kg/m2 Jada Rene Other [facility] Other 11-02-2023 13:00-0500 Body weight 79.38 kg Jada Rene Other [facility] Other 11-02-2023 13:00-0500 Diastolic blood pressure 82 mm[Hg] Jada Rene Other [facility] Other 11-02-2023 13:00-0500 Respiratory rate 18 /min Jada Rene Other [facility] Other 11-02-2023 13:00-0500 SaO2% (BldA) [Mass fraction] 97 % Jada Rene Other [facility] Other 11-02-2023 13:00-0500 Systolic blood pressure 138 mm[Hg] Jada Rene Other [facility] Other 09-21-2023 10:00-0500 Body height 180.34 cm Jada Rene Other [facility] Other 09-21-2023 10:00-0500 Body mass index (BMI) [Ratio] 25.81 kg/m2 Jadaendy Rene Other [facility] Other 09-21-2023 10:00-0500 Body weight 83.96 kg Jada Rene Other [facility] Other 09-21-2023 10:00-0500 Diastolic blood pressure 70 mm[Hg] Jada Rene Other [facility] Other 09-21-2023 10:00-0500 Respiratory rate 18 /min Jada Rene Other [facility] Other 09-21-2023 10:00-0500 SaO2% (BldA) [Mass fraction] 98 % Jada Rene Other [facility] Other 09-21-2023 10:00-0500 Systolic blood pressure 140 mm[Hg] Jada Rene Other [facility] Other 06-16-2023 11:00-0400 Body height 180.34 cm Jadaendy Rene Other [facility] Other 06-16-2023 11:00-0400 Body mass index (BMI) [Ratio] 23.79 kg/m2 Jada Rene Other [facility] Other 06-16-2023 11:00-0400 Body weight 77.38 kg Jada Edgard Other [facility] Other 06-16-2023 11:00-0400 Diastolic blood pressure 64 mm[Hg] Jadamary Rene Other [facility] Other 06-16-2023 11:00-0400 Respiratory rate 18 /min Jada Rene Other [facility] Other 06-16-2023 11:00-0400 SaO2% (BldA) [Mass fraction] 98 % Jadamary Rene Other [facility] Other 06-16-2023 11:00-0400 Systolic blood pressure 118 mm[Hg] Jada Rene Other [facility] Other Encounters Encounter Date Encounter Type Care Provider Facility Start: 05-13-2026 ambulatory YANIQUE A REYES Facili ty:[facility] Start: 08-09-2025 ambulatory YANIQUE A REYES Facili ty:[facility] Start: 05-20-2025 End: 05-20-2025 Lab Drop off YANIQUE A REYES [facility] Start: 05-20-2025 End: 05-20-2025 ambulatory Kylah Medina [facility] Start: 05-09-2025 End: 05-09-2025 ambulatory Kylah Medina [facility] [place] [facility] Start: 02-05-2025 End: 02-06-2025 Lab Drop off Kylah Medina [facility] Start: 02-05-2025 End: 02-06-2025 ambulatory Kylah Medina Facility:[facility] Start: 01-24-2025 End: 01-24-2025 Lab Drop off Kylah Medina [facility] Start: 01-24-2025 End: 01-24-2025 ambulatory Kylah Medina [facility] Start: 01-09-2025 End: 01-09-2025 Lab Drop off Kylah Medina [facility] Start: 01-09-2025 End: 01-09-2025 ambulatory Kylah Medina [facility] Start: 12-31-2024 End: 12-31-2024 Lab Drop off Kylah Medina [facility] Start: 12-31-2024 End: 12-31-2024 ambulatory Kylah Medina Facility:[facility] Start: 12-24-2024 End: 12-24-2024 ambulatory Kylah Medina [facility] [place] [facility] Start: 12-17-2024 End: 12-17-2024 Lab Drop off Kylah Medina [facility] Start: 12-17-2024 End: 12-17-2024 ambulatory Kylah Medina Facility:[facility] Start: 12-17-2024 End: 01-22-2025 ambulatory Kylah Medina Facility:[id number] Start: 11-28-2024 End: 11-28-2024 Bamboo flowsheet Jelani Chow LAUNDRY MACHINE OPERATOR Work Phone: [facility] Start: 11-28-2024 End: 11-28-2024 Bamboo flowsheet Jelani Chow LAUNDRY MACHINE OPERATOR Work Phone: [facility] Start: 11-28-2024 End: 11-28-2024 Postop follow up visit related to original px Jelani Chow LAUNDRY MACHINE OPERATOR Work Phone: [facility] [...] to same day surgery center Axel Hernández [facility] Start: 11-19-2024 End: 11-19-2024 ambulatory Axel Hernández Facility:[facility] Start: 11-13-2024 ambulatory Kylah GarnerShanna Medina Facility :[facility] Jackie Start: 11-12-2024 End: 11-12-2024 Lab Drop off Kylah Medina [facility] Start: 11-12-2024 End: 11-12-2024 ambulatory Kylah Kelsey Medina Facility:[facility] Start: 11-01-2024 End: 11-01-2024 ambulatory Kylah Kelsey Medina Facility:[facility] Start: 10-30-2024 End: 10-30-2024 ambulatory Axel Hernández Facility:[facility] Start: 10-30-2024 End: 10-30-2024 Patient encounter procedure Axel Hernández [facility] Start: 10-03-2024 End: 10-03-2024 Bamboo flowsheet Axel [...] End: 09-10-2024 ambulatory Kylah Medina Facility:[facility] [place] [facility] Start: 08-28-2024 End: 08-28-2024 [facility]ulatory [facility] Start: 08-28-2024 End: 08-28-2024 Patient encounter procedure Davie Vargas [facility] [place] Start: 08-20-2024 End: 08-20-2024 Telephone encounter Shala Farrell MD Work Phone: [facility] Start: 08-13-2024 End: 08-13-2024 ambulatory Nathaniel Bonilla MD Facility:[facility] [place] Start: 08-07-2024 End: 08-07-2024 ambulatory Kylah Medina Facility:[facility] [place] [facility] Start: 07-31-2024 End: 07-31-2024 ambulatory Kylah Medina Facility:[facility] [place] [facility] Start: 07-24-2024 End: 07-24-2024 ambulatory Kylah Medina Facility:[facility] [place] [facility] Start: 07-23-2024 ambulatory [facility] Start: 07-05-2024 ambulatory Kylah Medina Facility:[facility] Start: 07-03-2024 End: 07-03-2024 ambulatory Kylah Medina Facility:[facility] [place] [facility] Start: 06-20-2024 End: 06-20-2024 ambulatory AXEL HERNÁNDEZ Not Available Start: 06-11-2024 End: 06-11-2024 ambulatory XXXX NONE Facility:[facility] Start: 06-11-2024 End: 06-11-2024 Patient encounter procedure Kashif D Kirnus [facility] Start: 05-30-2024 End: 05-30-2024 ambulatory Dixon Dubose Facility:[facility] Start: 05-30-2024 End: 05-30-2024 Patient encounter procedure Dixon Endy Gracy [facility] Start: 05-21-2024 End: 05-21-2024 ambulatory Kashif Barnett Facility:[facility] Start: 05-21-2024 End: 05-21-2024 Patient encounter procedure Kashif Barnett [facility] Start: 05-03-2024 End: 05-03-2024 ambulatory MD Kylah Medina Facility:[facility] Start: 05-01-2024 End: 05-01-2024 ambulatory MD Kashif Barnett Facility:[facility] Start: 05-01-2024 End: 05-01-2024 Patient encounter procedure Kashif Barnett [facility] Start: 05-01-2024 End: 05-01-2024 Lab Drop off Kylah Medina [facility] Start: 05-01-2024 End: 05-01-2024 ambulatory MD Kylah Medina Facility:[facility] [place] Start: 04-20-2024 End: 04-20-2024 ambulatory MD Kashif Barnett Facility:[facility] Start: 04-20-2024 End: 04-20-2024 Patient encounter procedure Kashif Barnett [facility] Start: 04-04-2024 End: 04-04-2024 ambulatory AXEL HERNÁNDEZ Not Available Start: 03-26-2024 End: 03-26-2024 Admission to same day surgery center Axel Hernández [facility] Start: 03-26-2024 End: 03-26-2024 ambulatory Axel Serina Hernández Facility:[facility] Start: 03-20-2024 End: 03-20-2024 ambulatory MD Kylah Medina [facility] Start: 03-08-2024 End: 03-08-2024 ambulatory MD Kylah Medina [facility] Start: 03-06-2024 End: 03-06-2024 ambulatory Axel Serina Hernández Facility:[facility] Start: 03-06-2024 End: 03-06-2024 Patient encounter procedure Axel Serina Hernández [facility] Start: 02-15-2024 End: 02-15-2024 ambulatory AXEL Serina HERNÁNDEZ Not Available Start: 02-15-2024 End: 02-15-2024 ambulatory AXEL Serina HERNÁNDEZ Not Available Start: 02-02-2024 End: 02-02-2024 ambulatory MD Kylah Medina Facility: [facility] Start: 12-06-2023 End: 12-06-2023 ambulatory Jada Rene Other [facility] Other Start: 12-06-2023 Telephone encounter Jada Rene [facility] Start: 12-02-2023 End: 12-02-2023 ambulatory Jada Rene Other [facility] Other Start: 12-02-2023 Telephone encounter Jada Rene [facility] Start: 12-01-2023 End: 12-01-2023 Lab Drop off Kylah Medina [facility] Start: 12-01-2023 End: 12-01-2023 ambulatory MD Kylah Medina Facility:[facility] Start: 12-01-2023 ambulatory MD Kylah Medina Facility :[facility] Jackie Start: 11-18-2023 End: 11-18-2023 ambulatory Jadaendy Rene Other [facility] Other Start: 11-18-2023 Office outpatient vi sit 25 minutes Jadamary Rene [facility] Start: 11-02-2023 End: 11-02-2023 ambulatory Jada A Rene [facility] Other Start: 11-02-2023 Office outpatient vi sit [address] [facility] Start: 11-02-2023 Telephone encounter [facility]adaendy Rene [facility] Start: 10-28-2023 End: 10-28-2023 ambulatory Jadaendy Rene Other [facility] Other Start: 10-28-2023 Telephone [address]adamary Rene [facility] Start: 09-30-2023 End: 09-30-2023 Nurse Triage Venessa Riggins RN NURSE PACK MULE WORKER Comment on above: Refill Request Start: 09-30-2023 Tele[address] [facility] Start: 09-21-2023 End: 09-21-2023 ambulatory Jadaendy Rene Other [facility] Other Start: 09-21-2023 Office outpatient vi sit 25 minutes Jadamary eRne [facility] Start: 08-29-2023 End: 08-29-2023 ambulatory Jadaendy Rene Other [facility] Other Start: 08-29-2023 Telephone encounter Jadaendy Rene [facility] Start: 08-26-2023 End: 08-26-2023 ambulatory Jadaendy Rene Other [facility] Other Start: 08-26-2023 Telephone encounter Jadaendy Rene [facility] Start: 08-08-2023 End: 08-08-2023 ambulatory Jada Rene Other [facility] Other Start: 08-08-2023 Telephone encounter Jada Rene [facility] Start: 07-27-2023 End: 07-27-2023 ambulatory Jada Rene Other [facility] Other Start: 07-27-2023 Telephone encounter Jada Rene [facility] Start: 06-16-2023 End: 06-16-2023 ambulatory Jada Rene [facility] Other Start: 06-16-2023 Office outpatient ne w 45 minutes Jada Rene [facility] Start: 06-16-2023 Telephone encounter Jada Rene [facility] Procedures Date Procedure Procedure Detail Performing Clinician Start: 11-19-2024 [facility] CAPILLARY GLUCO SE POC Axel Hernández DO [...] [address] [place] [address] Jelani Chow, LAUNDRY MACHINE OPERATOR [address] [place] [address] [facility] Start: 11-28-2024 End: 11-28-2024 Patient encounter procedure [facility] Comment on above: Arrived Start: 11-26-2024 End: 11-26-2024 Patient encounter procedure 11/26/2024 10:30 AM EST Office Visit [facility] [address] [place] [address] Emiliano Escamilla MD [address] [place] [address] Arrived [facility] Comment on above: Arrived Start: 10-03-2024 End: 10-03-2025 ECG 12 lead ECG 12 lead ECG Routine Pre-op testing Expected: 10/03/2024 (Approximate), Expires: 10/03/2025 [facility] Work Phone: Comment on above: Expected: 10/03/2024 (Approximate), Expires: 10/03/2025 Start: 10-03-2024 End: 10-03-2024 Patient encounter procedure 10/03/2024 10:45 AM EST Office Visit [facility] [address] [place] [address] Axel Hernández, [address] [place] [address] Right hand pain (Primary Dx); Arm weakness [facility] Comment on above: Right hand pain (Holly ayaan Dx); Arm weakness Start: 07-15-2024 Influenza vaccination Influenza Vacc ine (#1) [facility] Start: 07-15-2023 Influenza vaccination Influenza Vacc ine (#1) [facility] Start: 11-14-2022 Advance Directive Discussion Advance Directive Discussion [facility] Start: 11-14-2022 Depression Assessment Depression Ass essment [facility] Start: 03-31-2016 Pneumococcal Vaccine : 65+ (2 - PPSV23 or PCV20) Pneumococcal Vaccine: 65+ (2 - PPSV23 or PCV20) [facility] Start: 03-31-2016 Pneumococcal Vaccine : 65+ Years (2 of 2 - PPSV23 or PCV20) Pneumococcal Vaccine: 65+ Years (2 of 2 - PPSV23 or PCV20) [facility] Start: 03-24-2016 Hepatitis B surface antibody level LDL Cholesterol [facility] Start: 09-24-2015 Hemoglobin A1c/Hemoglobin.total in Blood HbA1C [facility] Start: 08-01-2015 3 comp foot exam completed Diabetic Foot Exam [facility] Start: 07-25-2015 Hepatitis B screening Urine Albumin:Creatinine Ratio [facility] Start: 02-01-2015 Urine microalbumin profile DTaP,Tdap,Td Vaccine (1 - Tdap) [facility] Start: 10-24-2013 Shingrix Vaccine (2 of 3) Shingrix Vaccine (2 of 3) [facility] Start: 09-14-2012 Hepatitis C antibody , confirmatory test Dilated Retinal Exam [facility] Start: 2002 RSV Vaccine (1 - 1-d ose 60+ series) RSV Vaccine (1 - 1-dose 60+ series) [facility] Start: 1942 Covid-19 Vaccine (#1) Covid-19 Vacci ne (#1) [facility] Immunizations Immunization Date Immunization Notes [facility] influenza virus vaccine, unspecified formulation Axel Hernández DO Work Phone: [facility] 09-21-2023 Prevnar 20 Jada Rene Other [facility] 08-19-2023 Flu Shot - Documentation Purposes Only Jada Rene Other [facility] Other 08-19-2023 influenza virus vaccine, unspecified formulation Kylah Medina [facility] 08-14-2022 influenza, seasonal, injectable Jada Rene Other [facility] Other 03-31-2015 pneumococcal conjuga te vaccine, 13 valent Jada Rene Other [facility] 08-02-2014 influenza, high dose seasonal, preservative-free Venessa Riggins RN [facility] 08-02-2014 influenza virus vaccine, unspecified formulation Venessa Riggins RN [facility] [place] 08-29-2013 zoster vaccine, live Venessa Kassi terrell RN [facility] 08-09-2013 influenza virus vaccine, unspecified formulation Venessa Riggins RN [facility] 07-31-2012 influenza virus vaccine, unspecified formulation Venessa Riggins RN [facility] Work Phone: 03-07-2012 tetanus and diphther ia toxoids, adsorbed, preservative free, for adult use (2 Lf of tetanus toxoid and 2 Lf of diphtheria toxoid) Venessa Riggins RN [facility] Work Phone: 08-07-2011 influenza virus vaccine, unspecified formulation Venessa Riggins RN [facility] Work Phone: NEGATED: Highlighted row has not occurred!08-28-2024 influenza virus vaccine, unspecified formulation Davie Vargas [facility] [place] Payers Date Payer Category Payer Private Health Insurance [id number] 2025 Private Health Insurance [id number] 2023 Medicare (Managed Care) [employer] [id number] 2023 Unknown [employer] D [facility] [employer] Son [id number] 2023-Present [address] [place] [address] [id number]. [id number] 2023 Unknown [id number] 2.16.840.1.993879.19 2023 Medicare [id number] 2.16.840.1.921934.19 2023 Self-pay 2023 Medicare [id number]. 1.13.159.2. 7.3.015940.315 1942 Unknown [id number] 2.16.840.1.335714.3.579.2. 72 1942 Unknown [id number] 2.16.840.1.647119.3.579.2. 1942 Unknown [id number] 2.16.840.1.474536.3.579.2. 1942 Unknown [id number] 2.16.840.1.108782.3.579.2. 1942 Unknown [id number] 2.16.840.1.154216.3.579.2 1942 Unknown [id number] 2.16.840.1.565146.3.579.2 1942 Unknown [id number] 2.16.840.1.002017.3.579.2. 1942 Unknown [id number] 2.16.840.1.114640.3.579.2 1942 Unknown [id number] 2.16.840.1.381311.3.579.2. 1942 Unknown [id number] 2.16.840.1.853992.3.579.2 1942 Unknown [id number] 2.16.840.1.776358.3.579.2. 72 1942 Unknown [id number] 2.16.840.1.671629.3.579.2. 727 1942 Unknown [id number] 2.16.840.1.614089.3.579.2. 72 1942 Unknown [id number] 2.16.840.1.586141.3.579.2. 72 1942 Unknown [id number] 2.16.840.1.980989.3.579.2. 196 1942 Unknown [id number] 2.16.840.1.854168.3.579.2. 72 1942 Unknown [id number] 2.16.840.1.420277.3.579.2. 1942 Unknown [id number] 2.16.840.1.421998.3.579.2. 1942 Unknown [id number] 2.16.840.1.863284.3.579.2. 1942 Unknown [id number] 2.16.840.1.027041.3.579.2. 1258 1942 Unknown [id number] 2.16.840.1.997998.3.579.2. 1258 1942 Unknown [id number] 2.16.840.1.292541.3.579.2. 1258 1942 Unknown [id number] 2.16.840.1.995319.3.579.2. 1258 1942 Unknown [id number] 2.16.840.1.478208.3.579.2. 1258 1942 Unknown [id number] 2.16.840.1.788734.3.579.2. 1258 1942 Unknown [id number] 2.16.840.1.063087.3.579.2. 1258 1942 Unknown [id number] 2.16.840.1.576717.3.579.2. 1258 1942 Unknown [id number] 2.16.840.1.344364.3.579.2. 1259 1942 Unknown [id number] 2.16.840.1.627652.3.579.2. 1942 Unknown [id number] 2.16.840.1.986314.3.579.2. 1942 Unknown [id number] 2.16.840.1.820088.3.579.2. 1942 Unknown [id number] 2.16.840.1.059285.3.579.2. 1942 Unknown [id number] 2.16.840.1.743371.3.579.2 1942 Unknown [id number] 2.16.840.1.776069.3.579.2 1942 Unknown [id number] 2.16.840.1.151471.3.579.2 1942 Unknown [id number] 2.16.840.1.759538.3.579.2 1942 Unknown [id number] 2.16.840.1.059520.3.579.2. 1942 Unknown [id number] 2.16.840.1.561718.3.579.2 1942 Unknown [id number] 2.16.840.1.690180.3.579.2. 1942 Unknown [id number] 2.16.840.1.355083.3.579.2. 1942 Unknown [id number] 2.16.840.1.344386.3.579.2. 1942 Unknown [id number] 2.16.840.1.228207.3.579.2. 1942 Unknown [id number] 2.16.840.1.945449.3.579.2. 727 1942 Unknown [id number] 2.16.840.1.511435.3.579.2. 1942 Unknown [id number] 2.16.840.1.681971.3.579.2. 1942 Unknown [id number] 2.16.840.1.437879.3.579.2. 1942 Unknown [id number] 2.16.840.1.342038.3.579.2. 1942 Unknown [id number] 2.16.840.1.701375.3.579.2 1942 Unknown [id number] 2.16.840.1.662501.3.579.2 1942 Unknown [id number] 2.16.840.1.646639.3.579.2 1942 Unknown [id number] 2.16.840.1.973665.3.579.2. 1942 Unknown [id number] 2.16.840.1.294045.3.579.2 1942 Unknown [id number] 2.16.840.1.104302.3.579.2 1942 Unknown [id number] 2.16.840.1.028529.3.579.2 1942 Unknown [id number] 2.16.840.1.233198.3.579.2. 1942 Unknown [id number] 2.16.840.1.772774.3.579.2 1942 Unknown [id number] 2.16.840.1.457310.3.579.2. 727 Medicare [id number] 2.16.840.1.881262.19 Unknown [id number] 2.16.840.1.835372.3.579.2. 531 Unknown [id number] 2.16.840.1.838824.3.579.2. 531 Social History Date Type Detail Facility Start: 06-20-2024 End: 11-28-2024 Sex Assigned At [facility] Start: 12-01-2023 End: 05-09-2025 Tobacco smoking status NHIS Never smoked tobacco [facility] Comment on above: denies use. Start: 06-28-2022 Alcohol intake Current drinke r of alcohol (finding) [facility] Start: 06-28-2022 End: 11-28-2024 Alcohol intake [facility] Start: 1940 Sex Assigned At Not on file C [facility] Tobacco smoking status Never [facility] [place] Comment on above: denies use. Start: 02-15-2024 Tobacco use and exposure Smoke less tobacco non-user [facility] Sexual Orientation [facility] Sex Male (finding) [facility] Medical Equipment Procedure Code Equipment Code Equipment Origin al Text Equipment Identifier Dates Test blood sugar(s) 2 times daily. Dx: non. Insulin: No dx 250.00 Start: 08-24-2013 Comment on above: Test blood sugar(s) 2 times daily. Dx: non. Insulin: No dx 250.00 Functional Status Date Assessment Result Facility 10-30-2024 Functional Status No [facility] 08-28-2024 Functional Status N/A [facility] [place] 06-11-2024 Functional Status N/A [facility] 05-30-2024 Functional Status No [facility] [place] 04-20-2024 Functional Status N/A [facility] [place] 03-06-2024 Functional Status No [facility] Clinical Notes 03-10-2010 to 05-20-2025 Jelani Chow [...] Recorded influenza virus vaccine, inactivated 08/02/2014 Recorded [facility] 05-09-2025 Note Patient Education Cardiovascular Atrial Fibrillation [...] these instructions at home: Medicines ??? Take uows-zbl-xzkkkor and prescription medicines only as told by [...] provider. Document Revised: 07/20/2023 Document Reviewed: 07/20/2023 [employer] Patient Education ? 2023 [employer]. Caregiving Fall Prevention in the Home, Adult Falls can cause injuries and can happen to people of all ag (more content not included)... [facility] 12-31-2024 Note Nurse Consultation N ote Reason [...] Recorded influenza virus vaccine, inactivated 08/02/2014 Recorded [facility] 12-24-2024 Note Patient Education Cardiovascular Atrial Fibrillation [...] signals of the heart. ??? An ambulatory fast food supervisor to record your heart's activity for a [...] main warning s (more content not included)... [facility] 11-28-2024 History of Present illness Narrative Images from the original note were not included. HISTORY OF PRESENT ILLNESS: Dariel Zabala is an 84 y.o. @ male. 1ST PO LT CTR 11/19/24 (9 DAYS) @ [facility] ([facility]). PAIN DIFFUSE IN HAND/WRIST. KEEPS COVERED [...] develop for requiring urgent evaluation. Jelani Chow APRN-CYLINDER INSPECTOR documented in this encounter [facility] 11-26-2024 History of Present illness Narrative Images from the original note were not included. Subjective Patient ID: Dariel Zabala is a 84 y.o. male who presents for Ear Problem (Hearing aid battery in ear.) Pt seen in [facility] ED last Tuesday and DARNELL battery noted [...] NECK SURGERY TRIGGER FINGER RELEASE Right 03/26/2024 [facility] ([facility]) No Known Allergies Current Outpatient Medications [...] NOSTRIL ONCE DAILY AT BEDTIME [DISCONTINUED] HYDROcodone-acetaminophen (Pomfret) 5-325 MG tablet [DISCONTINUED] tiZANidine (Zanaflex) 4 [...] Dr Medina notified. documented in this encounter [facility] 11-19-2024 Note Progress Note-Physic carlos Patient: DARIEL ZABALA Age: 84 years Sex: Male : 1940 Associated Diagnoses: None Author: Chau Lou MD Postoperative Information Postoperative disposition: Postoperative disposition: To PACU. Optimetrix number: Optimetrix number [id number]. Anesthetic utilized: General. Health Status Allergies: Allergic [...] when meets criteria ( To home ). [facility] Comment on above: Result Comment: Elec tronically Signed By: Chau Lou MD\.br\Date and Time Signed: 11/19/24 15:19 EST 11-19-2024 Evaluation + Plan note Extrac bijal from: Title:ANES Post-operative Note---General Author: Chau Lou MD Date:11/19/24 Plan Transfer/Discharge: Transfer/Discharge Discharge when meets criteria ( To home ). Extracted from: Title:ANES Pre-operative Note 2022 Author:Chau Goode Date:11/19/24 Plan [place] [employer] Anesthesi[employer] (ASA) physical status classification: Class III. Anesthetic Preoperative Plan: Anesthesia General. Future Appointments Appointment Date:12/12/2024 10:15:00 AM Scheduled Provider:Dixon Dubose PA-C Location[facility] Appointment Type:Cardiology Follow Up (FT) Appointment Date:05/02/2025 08:00:00 AM Scheduled Provider: Location:[facility] Jackie Appointment Type: Medicare Wellness Subsequent Future Scheduled Tests Laboratory* Basic Metabolic Panel 11/13/24 [facility] 01-06-2025 NotePatient Education - Text [place], [place] [facility] CARPAL TUNNEL RELEASE INSTRUCTIONS [...] Patient Signature Axel Hernández, DO [facility] [address] [place] [address] Reviewed: 04-22[facility]01-06-2025 NoteProgress Note-Physician Patient: DARIEL ZABALA Age: 84 [...] daily, # 90 tab(s), Refills(s) 0, [id number] 178, cm, 06/11/24 12:53:00 EDT, Height/Length Dosing, 82, kg, 06/11/2412:56:00 EDT, Weight Dosing Sodium Chloride 1000 mg oral tablet, soluble: See Instructions, 30 tab(s), Refill(s) 0, Take one tablet daily, [id number], 178.6, cm, 11/01/24 9:21:00 EST, Height/Length Dosing, 81.3, kg, 11/01/24 9:21:00 EST, Weight Dosing Synthroid 25 mcg(0.025 mg) Tab: See Instructions, TAKE 1 TABLET DAILY ON AN EMPTY STOMACH, # 3 tab(s), Refills(s) 0, [id number], 178, cm, 08/07/24 10:59:00 EDT, Height/Length Dosing, 78.2, kg, 08/07/24 10:59:00 EDT, Weight Dosing atenolol 25 mg Tab: See Instructions, take 1/2 tab daily, # 90 tab(s), Refills(s) 1, Pharmacy: [facility], 178, cm, 09/10/24 13:01:00 EDT, Height/Length Dosing, 80.1, kg, 09/10/24 13:01:00 EDT, Weight Dosing finasteride 5 mg Tab: 5 mg = 1 tab(s), Oral, Daily, # 90 tab(s), Refills(s) 1, [id number], 178.6, cm, 11/01/24 9:21:00 EST, Height/Length Dosing, 81.3, kg, 11/01/24 9:21:00 EST, Weight Dosing fluticasone Nasal 0.05 mg/inh [place]: See Instructions, 48 mL, Refill(s) 1, USE 1 SPRAY IN EACH NOSTRIL TWICE A DAY, [id number], 178, cm, 08/28/24 14:50:00 EDT, Height/Length Dosing, 82.2, kg, 08/28/24 14:50:00 EDT, Weight Dosing gabapentin 300 mg Cap: 300 mg = 1 cap(s), Oral, Daily, # 90 cap(s), Refills(s) 1, Pharmacy: [facility], 178, cm, 07/03/24 10:05:00 EDT, Height/Length Dosing, 80.8, kg, 07/03/2410:05:00 EDT, Weight Dosing glimepiride 2 mg Tab: See Instructions, TAKE 1 TABLET DAILY, # 3 tab(s), Refills(s) 0, Pharmacy: [facility], 178, cm, 08/07/24 10:59:00 EDT, Height/Length Dosing, 78.2, kg, 08/07/24 10:59:00 EDT, Weight Dosing omeprazole 40 mg Cap-DR: 40 mg = 1 cap(s), Oral, Daily, # 90 cap(s), Refills(s) 1, Pharmacy: [facility], 178, cm, 08/28/24 14:50:00 EDT, Height/Length Dosing, 82.2, kg, 08/28/24 14:50:00 EDT, Weight Dosing pravastatin 40 mg Tab: 40 mg = 1 tab(s), Oral, Daily, # 90 tab(s), Refills(s) 3, Pharmacy: [facility], 178, cm, 09/10/24 13:01:00 EDT, Height/Length Dosing, 80.1, kg, 09/10/24 13:01:00 EDT, Weight Dosing sildenafil 100 mg Tab: 100 mg = 1 tab(s), Oral, Daily, PRN for erectile dysfunction, 1 hour before sexual activity, # 5 tab(s), Refills(s) 0, Pharmacy: [facility], 178, cm, 07/03/24 10:05:00 EDT, Height/Length Dosing, 80.8, kg, 07/03/24 10:05:00 EDT,... tamsulosin 0.4 mg Cap: 0.4 mg = 1 cap(s), Oral, Daily, # 90 cap(s), Refills(s) 1, Pharmacy: [facility], 178, cm, 09/10/24 13:01:00 EDT, Height/Length Dosing, 80.1, kg, 09/10/2413:01:00 EDT, Weight Dosing Documented Medications Documented CoQ10: See Instructions, PRN Prophylaxis, Refills(s) 0 D3: See Instructions, Oral Daily- patient states he takes 500 once a day, Refills(s) 0 Jantoven 5 mg oral tablet: 5 mg = 1 tab(s), Oral, Daily, Refills(s) 0, Blood Thinner (more content not included)...[facility] on above:Result Comment: Electronically Signed By: Carmine COHN, Chau Pineda\.br\Date and Time Signed: 11/19/24 11:51 [id number] Hospital Discharge instructions Patient Education 11/12/2024 12:08:21 Hernández - Carpal Tunnel Release Instructions (Custom) (CUSTOM) [place] [facility] CARPAL TUNNEL RELEASE INSTRUCTIONS [...] resolve. Patient SignatureMiclolis Hernández DO [facility] [address] [place] [id number] Reviewed: 04-2211/19/2024 13:10:26 Post Op Patient Instructions - FT (Custom) (CUSTOM) Follow Up Care 10/03/2024 14:28:43 With:GORDO Weller Address: [address] [place] [phone] Business (1) When:11/28/2024 13:00:00 Comments:Keep scheduled appointment. Call for any problems. [facility] 12-30-2024 NotePatient Education - Text [place] [facility] CARPAL TUNNEL RELEASE INSTRUCTIONS [...] Patient Signature Axel Hernández, DO [facility] [address] [place] [address] Reviewed: 04-22[facility]12-30-2024 NoteNurse Consultation Note Reason for Visit Pt [...] Daily, 1 refills fluticasone Nasal 0.05 mg/inh [place], See Instructions, Self Directed gabapentin 300 mg [...] 03/31/2015 Recorded influenza virus vaccine, inactivated 08/02/2014 [facility]20[facility] History of Present illness Narrative* Shala Farrell MD - 09/28/2024 9:30 AM EST [facility] Patient: Dariel Zabala [address], [address] , Sex: 1940, Male [place] [address] Height: 180 cm Ref Phys: Hernández fax [...] Doub=doublet; Fasc=fasciculation; FFE=full for effort; Fib=fibrillation; Myokym=myokymia; [place]=myotonic potential; N,0=normal; NR=no response; Polyph=polyphasia; Pos=positive [sharp] [...] available for comparison. Shala Farrell M.D. Diplomate, [place] [employer] and Neurology (neurology, epilepsy, sleep medicine) Diplomate, [place] Board of Clinical Neurophysiology Diplomate, [place] Board of Preventive Medicine (clinical informatics) . documented in this [facility]10-07-2024 Telephone encounter Note* Telephone Encounter - Miguel Valentinkehinde - 08/20/2024 10:50 AM EDT LVM to RC in regard to BUE referral from Dr. Hernández--Approved to schedule-- co-pay will be applied to toward OOP. [id number] Miscellaneous Notes* Telephone Encounter - Miguel Moe - 08/20/2024 10:50 AM EDT LVM to RC in regard to BUE referral from Dr. Hernández--Approved to schedule--2500 co-pay will be applied to toward OOP. documented in this [facility]06-18-2024 NoteEchocardiology Procedure Exam Date/Time Accession # Ordering Echo Transthoracic 05/01/2024 15:00 EDT [id number] Kashif Barnett MD Complete CPT code 68027 39040 Reason for Exam (Echo Transthoracic Complete) AFIB, Syncope R55;Other (please specify) Report Version: 1 Study ID: [id number] [id number] Adult Echocardiogram Report Name: DARIEL ZABALA Study [...] Signed by: Jason Vaughn MD Transcribed by: [facility] Technologist: [facility]05-13-2024 Hospital Discharge instructions Patient [...] condition: Doing activities that require a strong soft water mechanic. Having rheumatoid arthritis, gout, or diabetes. Being [...] splint on your hand. General instructions Take [id number]-[id number] and prescription medicines only as told by [...] provider. Document Revised: 03/17/2020 Document Reviewed: 03/17/2020 [employer] Patient Education 2022 [employer]. Follow Up Care 03/01/2024 15:40:29 With:GORDO Weller Address: [address] [place] [address] Business (1) When:04/04/2024 10:15:00 Comments:Keep scheduled appointment [facility]05-07-2024 Note [id number] Evaluation note* Encounter Date Diagnosis Assessment [...] sodium level at upcoming appt in January [facility] Other 12-20-2023 Evaluation note* Encounter Date Diagnosis [...] further dizziness symptoms would recommend f/u with oxygen equipment preparer as well. [facility] Other 11-17-2023 Evaluation note* Encounter Date Diagnosis Assessment Notes Treatment Notes Treatment Clinical Notes Sep, Type 2 diabetes mellitus (ICD-10 - E11.9) [facility] Other 11-17-2023 Miscellaneous Notes* Telephone Encounter - Venessa Riggins RN - 09/30/2023 12:29 PM EST Called patient back and reviewed plan from his call with Nurse Bottle Booth Attendant at 11:36 AM. See my note Patient [...] have any questions, you can call Nurse child nutrition assistant back. * Telephone Encounter - Venessa Riggins RN - 09/30/2023 11:36 AM EST Patient calling with request for physician referral: Patient referred to nephrology and primary care Department. Patient denies any new or worsening symptoms of which a provider is not aware: Yes. Patient was discharged from [facility] on 08/26 for low sodium and said [...] appt center and then call dropped. My [employer] and [employer] lost connection. NOC closing was given GO TO THE EMERGENCY ROOM OR CALL 911 IF: * You develop any new symptoms * Your condition worsens * You are concerned or anxious about your condition for any other reason. If you have any questions, you can call Nurse child nutrition assistant back. [facility]11-[facility]-2023 Evaluation note* Encounter Date Diagnosis Assessment Notes Treatment Notes Treatment Clinical Notes Sep, Hyponatremia (ICD-10 - E87.1) Recent sodium 136 at low end of normal, given significance of symptoms and recommendation of hospital for f/u will refer to nephrology patient requesting [place] Sep, Anticoagulant long-term use (ICD-10 - Z79.01) Follows with INR clinic through [facility]. Sep, Atrial fibrillation (ICD-10 - I48.91) Appears in NSR today, anticoagulated on Warfarin Sep, Hypothyroidism (ICD-10 - E03.9) Recent TFTs in normal range, clinically euthyroid, continue current dose of LT4 Sep, Type 2 diabetes mellitus (ICD-10 - E11.9) Recent a1c in good range at 5.6%, continue current dose of glimepiride. Sep, Immunization due (ICD-10 - Z23) [facility] Other 10-16-2023 Evaluation note* Encounter Date Diagnosis Assessment Notes Treatment Notes Treatment Clinical Notes Aug, Hyponatremia (ICD-10 - E87.1) [facility] Other 08-03-2023 Evaluation note* Encounter Date Diagnosis Assessment Notes Treatment Notes Treatment Clinical Notes Jun, Atrial fibrillation (ICD-10 - I48.91) Rate controlled, mild bradycardia but asymptomatic. Will continue current dose of atenolol. He is anticoagulated on Coumadin with goal INR 2-3, he is due for INR check. Will refer to coumadin clinic through [facility] Jun, Anticoagulant long-term use (ICD-10 - Z79.01) Jun, Hearing loss (ICD-10 - H91.90) Referral to local internet media planner Jun, Dermatitis (ICD-10 - L30.9) Can trial topical steroid PRN, discussed may be secondary to dry skin. Recommend daily use of lotion Jun, Hypothyroidism (ICD-10 - E03.9) Due for TFTs prior to next visit Jun, Type 2 diabetes mellitus (ICD-10 - E11.9) Due for a1c prior to next visit Jun, BPH (benign prostatic hyperplasia) (ICD-10 - N40.0) [facility] Other 08-03-2023 Reason for referral (narrative)* Reason Medication managemen t through [facility] - Coumadin management with INR goal 2-3 Diagnosis 1 Anticoagulant long-t erm use (Z79.01) Referral Organization [facility] Family Rodo John Referring Provider First Name Jada Referring Provider Last Name Edgard Referring Provider Specialty Family [facility] Referred Organization [facility] Referred Address [address] [place], [place],[address] Referred Provider Specialty Milvia s Referral Priority Routine General Notes Gabrielle Reid 01/2023 01:34:29 PM >this is an order not a referral, clinical informed and will fax order over for standing order INR to [facility] Reason * FU 06/29 CALL he aring loss, issue with hearing aids Diagnosis 1 Hearing loss (H91.90 ) Referral Organization [facility] Family Rodo John Referring Provider First Name Jada Referring Provider Last Name Edgard Referring Provider Specialty Family [facility] Organization [facility] Referred Address ,[place],[address] Referred Provider Specialty Audiologists Referral Priority Routine General Notes Jeanette Gabrielle L 01/2023 01:28:34 PM >referral received and faxed [facility] Other 04-27-2010 History of Past illness Narrative* Problem Noted Date Diagnosed Date Resolved Date Myalgia 03/10/2010 03/01/2011 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 and other lower urinary tract symptoms (LUTS) 08/11/2006 01/11/2013 Elevated prostate specific antigen (PSA) 03/07/2012 documented as of this encounter (statuses as of 09/30/2023) [facility] No data available for this section [facility] Future Appointments Appointment Date:03/08/2024 01:00:00 PM Scheduled Provider:[facility]yl[facility] Medina MD [facility]: Open Appointment Date:03/26/2024 01:45:00 PM Scheduled Provider: Location:[facility] Services Appointment Type:Surgery FT Appointment Date:05/01/2024 09:00:00 AM Scheduled Provider: [facility] Type: Lab Draw Appointment Date:05/03/2024 08:00:00 AM Scheduled Provider: Location:[facility] Appointment Type:FM Medicare Wellness Subsequent Appointment Date:05/03/2024 09:00:00 AM Scheduled Provider:Kylah Medina MD [facility] Type: Open Future Scheduled Tests Laboratory* PSA Screen, Total 02/02/24 * CBC w/ Auto Diff 02/02/24 * Comprehensive Metabolic Panel 02/02/24 * Lipid Panel 02/02/24 [facility] Future Appointments Appointment Date:05/01/2024 09:00:00 AM Scheduled Provider: [facility] App[facility] Type:FM Lab Draw Appointment Date:05/03/2024 08:00:00 AM Scheduled Provider: [facility] App[facility] Type: Medicare Wellness Subsequent Appointment Date:05/03/2024 09:00:00 AM Scheduled Provider:Kylah Medina MD Location:[facility] Appointment Type: Open Future Scheduled Tests Laboratory* PSA Screen, Total 02/02/24 * CBC w/ Auto Diff 02/02/24 * Comprehensive Metabolic Panel 02/02/24 * Lipid Panel 02/02/24 [facility] Future Appointments Appointment Date:05/01/2024 09:00:00 AM Scheduled Provider: Location:[facility] Appointment Type: Lab Draw Appointment Date:05/03/2024 08:00:00 AM Scheduled Provider: Location:[facility] Appointment Type: Medicare Wellness Subsequent Appointment Date:05/03/2024 09:00:00 AM Scheduled Provider:Kylah Medina MD Location:[facility] Appointment Type: Open Appointment Date:05/25/2024 01:00:00 PM Scheduled Provider:Kashif Barnett MD [facility] Type:Cardiology Follow Up (FT) Future Scheduled Tests Laboratory* PSA Screen, Total 02/02/24 * CBC w/ Auto Diff 02/02/24 * Comprehensive Metabolic Panel 02/02/24 * Lipid Panel 02/02/24 Radiology* Echo Transthoracic Complete 04/20/24 [facility] Future Appointments Appointment Date:05/03/2024 08:00:00 AM Scheduled Provider: Location:[facility] Appointment Type: Medicare Wellness Subsequent Appointment Date:05/03/2024 09:00:00 AM Scheduled Provider:Kylah Medina MD Location:[facility] Appointment Type: Open Appointment Date:05/21/2024 10:00:00 AM Scheduled Provider: [facility] Type:CV Holter/Event (FT) Appointment Date:05/25/2024 01:00:00 PM Scheduled Provider:Kashif Barnett MD [facility] Type:Cardiology Follow Up (FT) [facility] Future Appointments Appointment Date:05/30/2024 03:45:00 PM Scheduled Provider:Kashif Barnett MD [facility] Type:Cardiology Follow Up (FT) Appointment Date:11/01/2024 09:15:00 AM Scheduled Provider:Kylah Medina MD Location:[facility] Appointment Type: Open Appointment Date:05/02/2025 08:00:00 AM Scheduled Provider: Location:[facility] App[facility]ment Type:FM Medicare Wellness [facility] Future Appointments Appointment Date:08/31/2024 01:00:00 PM Scheduled Provider:Kashif Barnett MD [facility] Type:Cardiology Follow Up (FT) Appointment Date:11/01/2024 09:15:00 AM Scheduled Provider:Kylah Medina MD Location:[facility] Appointment Type: Open Appointment Date:05/02/2025 08:00:00 AM Scheduled Provider: Location:[facility] Appointment Type:FM Medicare Wellness [facility] Future App[facility]ments Appointment Date:11/01/2024 09:15:00 AM Scheduled Provider:Kylah Medina MD Location:[facility] Appointment Type:FM Open Appointment Date:12/11/2024 01:00:00 PM Scheduled Provider:Dixon Dubose PA-C [facility] Type:Cardiology Follow Up (FT) Appointment Date:05/02/2025 08:00:00 AM Scheduled Provider: Location:[facility] Appointment Type:FM Medicare Wellness Subsequent [facility] Evaluation + Plan note Future Appointments Appointment Date:11/01/2024 09:15:00 AM Scheduled Provider:Kylah Medina MD Location:[facility] Appointment Type:FM Open Appointment Date:11/19/2024 02:15:00 PM Scheduled Provider: Location:[facility] Appointment Type:Surgery FT Appointment Date:12/12/2024 10:15:00 AM Scheduled Provider:Dixon Dubose PA-C [facility] Type:Cardiology Follow Up (FT) Appointment Date:05/02/2025 08:00:00 AM Scheduled Provider: Location:[facility] Appointment Type:FM Medicare Wellness Subsequent [facility] evaluation + Plan note Future Appointments Appointment Date:11/19/2024 02:15:00 PM Scheduled Provider: Location:[facility] Appointment Type:Surgery FT Appointment Date:12/12/2024 10:15:00 AM Scheduled Provider:Dixon Dubose PA-C [facility] Type:Cardiology Follow Up (FT) Appointment Date:05/02/2025 08:00:00 AM Scheduled Provider: Location:[facility] Appointment Type: Medicare Wellness Subsequent [facility] evaluation + Plan note Future Appointments Appointment Date:12/24/2024 01:15:00 PM Scheduled Provider:Kylah Medina MD Location:[facility] Appointment Type: Open Appointment Date:05/02/2025 08:00:00 AM Scheduled Provider: Location:[facility] Appointment Type:FM Medicare Wellness Subsequent Diagnostic Tests Pending * Basic Metabolic Panel 12/17/24 Future Scheduled Tests Laboratory* Basic Metabolic Panel 11/13/24 [facility] evaluation + Plan note Future Appointments Appointment Date:01/22/2025 10:15:00 AM Scheduled Provider:Kylah Medina MD Location:[facility] Appointment Type: Open Appointment Date:05/02/2025 08:00:00 AM Scheduled Provider: Location:[facility] Appointment Type: Medicare Wellness Subsequent Future Scheduled Tests Laboratory* Basic Metabolic Panel 11/13/24 [facility] evaluation + Plan note Future Appointments Appointment Date:02/05/2025 01:30:00 PM Scheduled Provider:Kylah Medina MD Location:[facility] Appointment Type: Open Appointment Date:05/02/2025 08:00:00 AM Scheduled Provider: Location:[facility] Appointment Type: Medicare Wellness Subsequent Future Scheduled Tests Laboratory* Basic Metabolic Panel 01/10/25 * Basic Metabolic Panel 11/13/24 [facility] evaluation + Plan note Future Appointments Appointment Date:05/02/2025 08:00:00 AM Scheduled Provider: Location:[facility] Appointment Type: Medicare Wellness Subsequent Future Scheduled Tests Laboratory* Basic Metabolic Panel 11/13/24 [facility] evaluation + Plan note Future Appointments Appointment Date:08/09/2025 10:40:00 AM Scheduled Provider:YANIQUE CHAMBERS CNP Location:[facility] Appointment Type: Open Appointment Date:05/13/2026 08:00:00 AM Scheduled Provider: Location:[facility] Appointment Type: Medicare Wellness Subsequent Future Scheduled Tests Laboratory* Basic Metabolic Panel 11/13/24 [facility] evaluation noteNo [employer] Other Evaluation note* Diagnosis Pain in both upper extremities- Primary Carpal tunnel syndrome, bilateral Carpal tunnel syndrome documented in this encounter [facility] HealthcareEvaluation note* Diagnosis Pre-op testing- Primary Unspecified pre-operative examination Right hand pain Pain in soft tissues of limb Arm weakness Other musculoskeletal symptoms referable to limbs documented in this encounter [facility] HealthcareEvaluation note* Diagnosis Foreign body of right ear, initial encounter- Primary documented in this encounter [facility] HealthcareEvaluation note* Diagnosis Status post carpal tunnel release- Primary Other postprocedural status documented in this encounter [facility] HealthcareHistory general Narrative - Reported* Type Description Date Medical History type 2 diabetes Medical History hypothyroid Medical History Afib Surgical History multiple neck sx Surgical History tonsillectomy Surgical History adenoidectomy Surgical History [facility] cataract Hospitalization History see above [facility] Other History general Narrative - Reported* Type Description Date Medical History type 2 diabetes Medical History hypothyroid Medical History Afib Surgical History multiple neck sx Surgical History tonsillectomy Surgical History adenoidectomy Surgical History [facility] cataract Hospitalization History see above Hospitalization History low [facility]23 [facility] Other [place] general Narrative - Reported* Type Description Date [...] 2 DM, generalized weakness hypomagnesiema, RADHA 11/13/23-11/15/23 [facility] Other Hospital Discharge instructions No data available for this section [facility] No data available for this section [facility] Summary Purpose Family History No Family History [...] hospitalization for symptomatic hyponatremia, [facility] [place] Dr. Lara ph [phone], fax [phone] Diagnosis 1 Hyponatremia (E87.1) Referral Organization [facility] Family Medicin e [facility] Referring Provider First Name Jada Referring Provider Last Name [facility] Referring Provider Specialty Family [employer] [facility] Referred Provider Romeo Lara Referred Address [address] [place],[address] Referred Provider Specialty Internal Med icine Referral Priority Routine General Notes Jeanette Gabrielle Krishan 06/2023 01:35:25 PM > referral received and faxed Clinical Notes [facility] [place] Dr. Lara ph [phone], fax [phone] Reason hyponatremia, recent hospitalization [facility] for [facility]atremia Diagnosis 1 Hyponatremia (E87.1) Referral Organization [facility] Referring Provider First Name Jada Referring Provider Last Name [facility] Referring Provider Specialty [facility] [employer] Referred Organization [facility] Referred Address [address] [place], [place],[address] Referred Provider Specialty Nephrology Referral Priority Routine [...] section and content) DATE CREATED AUTHOR 06/03/2020 [facility] DATE CREATED AUTHOR AUTHOR'S ORGANIZ ATION 11/10/2023 [facility] DATE CREATED AUTHOR AUTHOR'S ORGANIZ ATION 05/03/2024 [facility] DATE CREATED AUTHOR AUTHOR'S ORGANIZ ATION 07/01/2024 [facility] DATE CREATED AUTHOR AUTHOR'S ORGANIZ ATION 08/17/2024 [facility] DATE CREATED AUTHOR AUTHOR'S ORGANIZ ATION 11/02/2024 [facility] DATE CREATED AUTHOR AUTHOR'S ORGANIZ ATION 11/14/2024 [facility] DATE CREATED AUTHOR AUTHOR'S ORGANIZ ATION 11/24/2024 [facility] DATE CREATED AUTHOR AUTHOR'S ORGANIZ ATION 11/25/2024 [facility] DATE CREATED AUTHOR AUTHOR'S ORGANIZ ATION 11/29/2024 [facility] DATE CREATED AUTHOR AUTHOR'S ORGANIZ ATION 12/21/2024 [facility] DATE CREATED AUTHOR AUTHOR'S ORGANIZ ATION 01/02/2025 [facility] DATE CREATED AUTHOR AUTHOR'S ORGANIZ ATION 01/10/2025 [facility] DATE CREATED AUTHOR AUTHOR'S ORGANIZ ATION 01/11/2025 [facility] DATE CREATED AUTHOR AUTHOR'S ORGANIZ ATION 01/27/2025 [facility] DATE CREATED AUTHOR AUTHOR'S ORGANIZ ATION 02/06/2025 [facility] DATE CREATED AUTHOR AUTHOR'S ORGANIZ ATION 02/07/2025 [facility] DATE CREATED AUTHOR AUTHOR'S ORGANIZ ATION 02/22/2025 [facility] DATE CREATED AUTHOR AUTHOR'S ORGANIZ ATION 05/10/2025 [facility] DATE CREATED AUTHOR AUTHOR'S ORGANIZ ATION 05/23/2025 [facility] DATE CREATED AUTHOR AUTHOR'S ORGANIZ ATION 05/24/2025 [facility] DATE CREATED AUTHOR AUTHOR'S ORGANIZ ATION 06/01/2025 [facility] REASON FOR VISIT (unrecogniz ed [...] or prosecute any alcohol or drug abuse patient.[facility] Patient Care team informatio n (unrecognized section and content) Telephone Recorder Relationship Specialty Start Date End Date Kylah Medina MD PCP - General Family Medicine 02/03/24 Telephone Recorder Relationship Specialty Start Date End Date Kylah Medina MD PCP - General Family Medicine 02/03/24 Telephone Recorder Relationship Specialty Start Date End Date Kylah Medina MD PCP - General Family Medicine 02/03/24 Telephone Recorder Relationship Specialty Start Date End Date Kylah Medina MD PCP - General Family Medicine 02/03/24 Telephone Recorder Relationship Specialty Start Date End Date Kylah Medina MD [facility] - [facility] 02/03/24 Telephone Recorder Relationship Specialty Start Date End Date Kylah Medina MD [address], [place] [id number] PCP - [facility] 11/26/24 Telephone Recorder Relationship Specialty Start Date End Date Kylah Medina MD [address] [place] [address] PCP - [facility] 11/26/24 Telephone Recorder Relationship Specialty Start Date End Date Kylah Medina MD [address], [place] [id number] PCP - [facility] 11/26/24 Telephone Recorder Relationship Specialty Start Date End Date Kylah Medina MD [address] [place] [address] [facility] 11/26/24 FOR RECORDS PERTAINING TO PATIENTS WHO [...] BE BASED ON THE PRIMARY CLINICAL RECORDS. [employer] [facility]. provides no warranty or guarantee of the accuracy or completeness of information in this document.
--- NOTE | 2025-06-01 22:29 | ED.EPISTAXI1 ---
HPI - Epistaxis General Chief Complaint: Epistaxis Stated Complaint: EPISTAXIS Time Seen by Provider: 06/01/25 21:23 Source: patient Mode of arrival: walk-in Limitations: no limitations History of Present Illness HPI Narrative: cc - nosebleed Pt was evaluated earlier in the ED after a fall and was found to have nasal fractures bilaterally and a nasal spine fracture. He takes coumadin daily. He had received nasal Afrin in the ED, his bleeding had stopped, his INR was 2.42, PT 24 and PTT 33, so he was discharged home. When he got home, after eating, he blew his nose. Immediately blood started pouring out of the left nostril. He came to the ED for evaluation. Related Data Home Medications ?Medication ?Instructions ?Recorded ?Confirmed glimepiride 2 mg tablet 2 mg PO DAILY 08/21/23 12/14/24 levothyroxine 25 mcg tablet 25 mcg PO QAM 08/21/23 12/14/24 pravastatin 40 mg tablet 40 mg PO DAILY 08/21/23 12/14/24 tamsulosin 0.4 mg capsule 0.4 mg PO DAILY 08/21/23 12/14/24 warfarin 5 mg tablet (Jantoven) 5 mg PO MOWEFR 08/21/23 12/14/24 warfarin 2.5 mg tablet (Jantoven) 2.5 mg PO .4 days a week 08/22/23 12/14/24 finasteride 5 mg tablet 5 mg PO DAILY 11/13/23 12/14/24 coenzyme Q10 100 mg capsule (Co 100 mg PO DAILY 08/13/24 12/14/24 Q-10) cyclobenzaprine 10 mg tablet 10 mg PO TID PRN muscle spasm 08/13/24 12/14/24 gabapentin 300 mg capsule 300 mg PO DAILY 08/13/24 12/14/24 vitamin B complex (B-Complex 1 tab PO DAILY 08/13/24 12/14/24 tablet) Previous Rx's ?Medication ?Instructions ?Recorded atenolol 25 mg tablet 25 mg PO BID #60 tabs 11/15/23 sodium chloride 1,000 mg soluble 1,000 mg PO TID #90 tabs 11/15/23 tablet Allergies Allergy/AdvReac Type Severity Reaction Status Date / Time No Known Drug Allergies Allergy Verified 06/01/25 17:53 PFSH PFS Medical History (Updated 06/01/25 @ 22:33 by Vargas Cooper) Adult hypothyroidism ?E03.9 - Hypothyroidism, unspecified (ICD-10) Hyponatremia ?E87.1 - Hypo-osmolality and hyponatremia (ICD-10) Paroxysmal atrial fibrillation ?I48.0 - Paroxysmal atrial fibrillation (ICD-10) Type 2 diabetes mellitus with hyperglycemia ?E11.65 - Type 2 diabetes mellitus with hyperglycemia (ICD-10) Syncope ?R55 - Syncope and collapse (ICD-10) Abrasion of scalp ?S00.01XA - Abrasion of scalp, initial encounter (ICD-10) Closed head injury ?S09.90XA - Unspecified injury of head, initial encounter (ICD-10) Laceration of scalp ?S01.01XA - Laceration without foreign body of scalp, initial encounter (ICD-10) Low back pain ?M54.50 - Low back pain, unspecified (ICD-10) Lumbar spondylosis ?M47.816 - Spondylosis without myelopathy or radiculopathy, lumbar region (ICD-10) Thoracic back pain ?M54.6 - Pain in thoracic spine (ICD-10) 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 - Other specified mononeuropathies (ICD-10) Paresthesias in right hand ?R20.2 - Paresthesia of skin (ICD-10) Foreign body in right ear ?T16.1XXA - Foreign body in right ear, initial encounter (ICD-10) Hyponatremia ?E87.1 - Hypo-osmolality and hyponatremia (ICD-10) Hypomagnesemia ?E83.42 - Hypomagnesemia (ICD-10) RADHA (acute kidney injury) ?N17.9 - Acute kidney failure, unspecified (ICD-10) Influenza ?J11.1 - Influenza due to unidentified influenza virus with other respiratory manifestations (ICD-10) Hypomagnesemia ?E83.42 - Hypomagnesemia (ICD-10) Acute hyponatremia ?E87.1 - Hypo-osmolality and hyponatremia (ICD-10) Acute confusion ?R41.0 - Disorientation, unspecified (ICD-10) Diabetes ?E11.9 - Type 2 diabetes mellitus without complications (ICD-10) High cholesterol ?E78.00 - Pure hypercholesterolemia, unspecified (ICD-10) Atrial fibrillation ?I48.91 - Unspecified atrial fibrillation (ICD-10) Surgical History (Updated 12/14/24 @ 06:24 by Roxie Greenfield RN) Hx of carpal tunnel repair ?Z98.890 - Other specified postprocedural states (ICD-10) Family History Father Family history of myocardial infarction Family history of hypertension Mother Family history of cancer Family history of diabetes mellitus Social History (Updated 12/14/24 @ 06:25 by Roxie Greenfield RN) Within the past year, how often did you have a drink containing alcohol: 2-4 times a month Smoking status: Never smoker Non-prescribed substance use: denies use Highest level of school completed/degree received: high school graduate Are you now , , , , never or living with a partner: Little interest or pleasure in doing things: not at all Feeling down, depressed, or hopeless: not at all Gender Identity: male Exam Narrative Exam Narrative: Nurses notes and vital signs reviewed and patient is not hypoxic. afebrile General: Well-appearing and in no apparent distress. Skin: Warm, dry, no pallor noted. Head: Normocephalic, atraumatic. Eye: Pupils are equal, round and EOMI. No scleral icterus. Ears, Nose, Mouth, and Throat: Oral mucosa is moist. Patient has vigorous bleeding from the left nasal passage with a small amount of oozing from the right nasal passage. There is some clot formation in the left nasal passage as well and blood can be visualized in the posterior pharyngeal area. He frequently coughs or spits up bloody mucus. Cardiovascular: Regular Rate and Rhythm without murmur, gallop or rub. Respiratory: No accessory muscle use or respiratory distress. Lungs are clear to auscultation, no wheezing, rales or rhonchi Musculoskeletal: normal ROM Neurological: A&O x4. No cranial nerve dysfunction observed. No truncal ataxia. Moves all extremities. Sensation intact. Psychiatric: Cooperative and interactive. Normal mood and affect. Constitutional Vital Signs, click to edit/add: Last Vital Signs Temp 97.8 F 06/01/25 21:18 Pulse 78 06/01/25 21:18 Resp 18 06/01/25 21:18 BP 178/88 H 06/01/25 21:18 Pulse Ox 96 06/01/25 21:18 O2 Del Method Room Air 06/01/25 21:18 Course Vital Signs Vital signs: Vital Signs Temperature 97.8 F 06/01/25 21:18 Pulse Rate 78 06/01/25 21:18 Respiratory Rate 18 06/01/25 21:18 Blood Pressure 178/88 H 06/01/25 21:18 Pulse Oximetry 96 06/01/25 21:18 Oxygen Delivery Method Room Air 06/01/25 21:18 Temperature 97.8 F 06/01/25 21:18 Pulse Rate 78 06/01/25 21:18 Respiratory Rate 18 06/01/25 21:18 Blood Pressure 178/88 H 06/01/25 21:18 Pulse Oximetry 96 06/01/25 21:18 Oxygen Delivery Method Room Air 06/01/25 21:18 MDM - Epistaxis MDM Narrative Medical decision making narrative: I had him blow out some of the clots and clear the nasal passage and then Afrin was sprayed on both sides. He held his nose for approximately 25 minutes but the bleeding continued. Inflatable Rhino Rocket was inserted into the patient's left nasal passage. Pt was monitored for 2 hours and then discharged home. I taped gauze in place at the nares to catch any residual oozing that might occur overnight. He will see Dr Erika LYNCH and if he cannot be seen within the next 2-3 days, he will return to the ED to be re-evaluated and have the rhino rocket removed. Medical Records Attestation: I reviewed the patient's medical records. Medical records narrative: PTT 24, INR 2.42, PTT 33 Discharge Plan Discharge Chief Complaint: Epistaxis Clinical Impression: Epistaxis, Fracture of nasal bones Patient Disposition: Home, Self-Care Time of Disposition Decision: 00:23 Prescriptions / Home Meds: No Action glimepiride 2 mg tablet 2 mg PO DAILY levothyroxine 25 mcg tablet 25 mcg PO QAM pravastatin 40 mg tablet 40 mg PO DAILY tamsulosin 0.4 mg capsule 0.4 mg PO DAILY warfarin [Novtoven] 5 mg tablet 5 mg PO Rx Instructions: takes on tuesday, and tue [facility] warfarin [Novtoven] 2.5 mg tablet 2.5 mg PO .4 days a week Rx Instructions: Takes on Tuesday, , and sat per [facility] finasteride 5 mg tablet 5 mg PO DAILY sodium chloride 1,000 mg Tablet,Soluble 1,000 mg PO TID Qty: 90 0RF atenolol 25 mg Tablet 25 mg PO BID Qty: 60 0RF gabapentin 300 mg capsule 300 mg PO DAILY coenzyme Q10 [Co Q-10] 100 mg capsule 100 mg PO DAILY vitamin B complex [B-Complex] Tablet 1 tab PO DAILY cyclobenzaprine 10 mg tablet 10 mg PO TID PRN (Reason: muscle spasm) Print Language: Ukrainian Instructions: Nasal Fracture (ED), Nosebleed (ED) Referrals: Kristina James MD [Physician, Ear, Nose, Throat] - 1 week
== END 2025-06-02 00:40 | disposition home or self-care (01) ==
PROVIDERS: Emergency Provider Emergency Medicine
DX: R04.0 Epistaxis (principal); S02.2XXA Fracture of nasal bones, initial encounter for closed fracture
CPT/HCPCS: 30901; 99282

== ENCOUNTER 2025-06-02 01:49 | Emergency (ER) | payer MEDICARE, SELFPAY ==
[2025-06-02 01:58] VITALS: BP 182/92; PULSE 90; TEMP 37.3; O2SAT 96; BMI 25.1
--- NOTE | 2025-06-02 03:30 | ED.EPISTAXI1 ---
HPI - Epistaxis General Chief Complaint: Epistaxis Stated Complaint: Epistaxis Time Seen by Provider: 06/02/25 02:01 Source: patient Mode of arrival: walk-in Limitations: no limitations History of Present Illness HPI Narrative: cc - epistaxis Patient returns to the emergency department after increased bleeding despite having a Rhino Rocket placed. The patient was very agitated on arrival. His had actually called to talk about options and I let them know by phone that if he were to return he would have to be transferred to a facility with ENT support as we do not have that available at the at this time. Shortly after arrival, the patient pulled out the Rhino Rocket which I had inserted and of course bleeding worsened. He had been evaluated earlier in the day after a traumatic injury to the face suffered from a mechanical fall in which he tripped and fell forward. He was diagnosed with bilateral nasal fractures and nasal spine fracture. He initially was given Afrin spray did not have any bleeding but then he went home, blew his nose and the bleeding started. He takes Coumadin daily. His INR on initial visit was 2.4 with PT 23.5 and PTT 32.8. He has no other complaint at this time. Related Data Home Medications ?Medication ?Instructions ?Recorded ?Confirmed glimepiride 2 mg tablet 2 mg PO DAILY 08/21/23 12/14/24 levothyroxine 25 mcg tablet 25 mcg PO QAM 08/21/23 12/14/24 pravastatin 40 mg tablet 40 mg PO DAILY 08/21/23 12/14/24 tamsulosin 0.4 mg capsule 0.4 mg PO DAILY 08/21/23 12/14/24 warfarin 5 mg tablet (Jantoven) 5 mg PO MOWEFR 08/21/23 12/14/24 warfarin 2.5 mg tablet (Jantoven) 2.5 mg PO .4 days a week 08/22/23 12/14/24 finasteride 5 mg tablet 5 mg PO DAILY 11/13/23 12/14/24 coenzyme Q10 100 mg capsule (Co 100 mg PO DAILY 08/13/24 12/14/24 Q-10) cyclobenzaprine 10 mg tablet 10 mg PO TID PRN muscle spasm 08/13/24 12/14/24 gabapentin 300 mg capsule 300 mg PO DAILY 08/13/24 12/14/24 vitamin B complex (B-Complex 1 tab PO DAILY 08/13/24 12/14/24 tablet) Previous Rx's ?Medication ?Instructions ?Recorded atenolol 25 mg tablet 25 mg PO BID #60 tabs 11/15/23 sodium chloride 1,000 mg soluble 1,000 mg PO TID #90 tabs 11/15/23 tablet Allergies Allergy/AdvReac Type Severity Reaction Status Date / Time No Known Drug Allergies Allergy Verified 06/01/25 17:53 [facility] Medical History (Updated 06/02/25 @ 03:38 by Vargas Cooper) Adult hypothyroidism ?E03.9 - Hypothyroidism, unspecified (ICD-10) Hyponatremia ?E87.1 - Hypo-osmolality and hyponatremia (ICD-10) Paroxysmal atrial fibrillation ?I48.0 - Paroxysmal atrial fibrillation (ICD-10) Type 2 diabetes mellitus with hyperglycemia ?E11.65 - Type 2 diabetes mellitus with hyperglycemia (ICD-10) Syncope ?R55 - Syncope and collapse (ICD-10) Abrasion of scalp ?S00.01XA - Abrasion of scalp, initial encounter (ICD-10) Closed head injury ?S09.90XA - Unspecified injury of head, initial encounter (ICD-10) Laceration of scalp ?S01.01XA - Laceration without foreign body of scalp, initial encounter (ICD-10) Low back pain ?M54.50 - Low back pain, unspecified (ICD-10) Lumbar spondylosis ?M47.816 - Spondylosis without myelopathy or radiculopathy, lumbar region (ICD-10) Thoracic back pain ?M54.6 - Pain in thoracic spine (ICD-10) 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 - Other specified mononeuropathies (ICD-10) Paresthesias in right hand ?R20.2 - Paresthesia of skin (ICD-10) Foreign body in right ear ?T16.1XXA - Foreign body in right ear, initial encounter (ICD-10) Hyponatremia ?E87.1 - Hypo-osmolality and hyponatremia (ICD-10) Hypomagnesemia ?E83.42 - Hypomagnesemia (ICD-10) RADHA (acute kidney injury) ?N17.9 - Acute kidney failure, unspecified (ICD-10) Influenza ?J11.1 - Influenza due to unidentified influenza virus with other respiratory manifestations (ICD-10) Hypomagnesemia ?E83.42 - Hypomagnesemia (ICD-10) Acute hyponatremia ?E87.1 - Hypo-osmolality and hyponatremia (ICD-10) Acute confusion ?R41.0 - Disorientation, unspecified (ICD-10) Diabetes ?E11.9 - Type 2 diabetes mellitus without complications (ICD-10) High cholesterol ?E78.00 - Pure hypercholesterolemia, unspecified (ICD-10) Atrial fibrillation ?I48.91 - Unspecified atrial fibrillation (ICD-10) Surgical History (Updated 12/14/24 @ 06:24 by Roxie Greenfield RN) Hx of carpal tunnel repair ?Z98.890 - Other specified postprocedural states (ICD-10) Family History Father Family history of myocardial infarction Family history of hypertension Mother Family history of cancer Family history of diabetes mellitus Social History (Updated 12/14/24 @ 06:25 by Roxie Greenfield RN) Within the past year, how often did you have a drink containing alcohol: 2-4 times a month Smoking status: Never smoker Non-prescribed substance use: denies use Highest level of school completed/degree received: high school graduate Are you now , , , , never or living with a partner: Little interest or pleasure in doing things: not at all Feeling down, depressed, or hopeless: not at all Gender Identity: male Exam Narrative Exam Narrative: Nurses notes and vital signs reviewed and patient is not hypoxic. afebrile General: Well-appearing and in no apparent distress. Skin: Warm, dry, no pallor noted. No rash. Head: Mid bridge of the nose has ecchymotic area. He has some areas of ecchymosis on the cheeks especially under the right eye but the remainder of the scalp/face is normocephalic, atraumatic. Neck: Supple, non-tender. Eye: Pupils are equal, round and EOMI. No scleral icterus. Ears, Nose, Mouth, and Throat: When I went and saw him, he had just pulled out the Rhino Rocket and was vigorously bleeding from both nostrils. He also had blood down the posterior pharynx Cardiovascular: Regular Rate and Rhythm without murmur, gallop or rub. Respiratory: No accessory muscle use or respiratory distress. Lungs are clear to auscultation, no wheezing, rales or rhonchi Musculoskeletal: normal ROM Neurological: A&O x4. No cranial nerve dysfunction observed. No truncal ataxia. Moves all extremities. Sensation intact. Psychiatric: Cooperative and interactive. Normal mood and affect. Constitutional Vital Signs, click to edit/add: Last Vital Signs Temp 99.1 F 06/02/25 01:58 Pulse 90 06/02/25 01:58 Resp 06/02/25 01:58 BP 182/92 H 06/02/25 01:58 Pulse Ox 96 06/02/25 01:58 O2 Del Method Room Air 06/02/25 01:58 Course Vital Signs Vital signs: Vital Signs Temperature 99.1 F 06/02/25 01:58 Pulse Rate 90 06/02/25 01:58 Respiratory Rate 06/02/25 01:58 Blood Pressure 182/92 H 06/02/25 01:58 Pulse Oximetry 96 06/02/25 01:58 Oxygen Delivery Method Room Air 06/02/25 01:58 Temperature 99.1 F 06/02/25 01:58 Pulse Rate 90 06/02/25 01:58 Respiratory Rate 06/02/25 01:58 Blood Pressure 182/92 H 06/02/25 01:58 Pulse Oximetry 96 06/02/25 01:58 Oxygen Delivery Method Room Air 06/02/25 01:58 MDM - Epistaxis MDM Narrative Medical decision making narrative: I had the patient blow into a towel and then I inserted a 7.5 cm AP Rhino Rocket into the patient's left nasal passage and inflated with 10 cc of air. I then inserted a 5.5 cm anterior Rhino Rocket of the patient's right nasal passage inflated with 10 cc of air. I ended up inflating both sides with an additional 5 cc of air. The patient felt pressure but was not uncomfortable. Bleeding was controlled at that time. He did still have some posterior pharyngeal bleed seen from the posterior aspect of the nasal passages. We do not have ENT coverage at this facility inpatient and therefore I called [facility] and spoke with the on-call ENT, Dr. Barnes, who agreed to take this patient under consultation to their facility. He asked that I call and speak with the hospitalist on-call as they will be the admitting service. I spoke with the nurse practitioner Leelee Easley and on behalf of the attending physician Dr. Monet she accepted the patient's transfer to their facility for admission. At this time, we are awaiting bed assignment and then will arrange transfer to [facility] Discharge Plan Discharge Chief Complaint: Epistaxis Clinical Impression: Fracture of nasal bones, Epistaxis Patient Disposition: [facility] Time of Disposition Decision: 03:38 Discharge Location: [facility]
--- NOTE | 2025-06-02 05:44 | PC.NURSE ---
Bed assignment received for [facility], room 505-[address]. [place] ETA [id number]
[2025-06-02 06:56] VITALS: BP 182/82; PULSE 67; O2SAT 99
[2025-06-02 07:04] VITALS: BP 165/80; PULSE 78; O2SAT 99
[2025-06-02 07:07] VITALS: O2SAT 98
[2025-06-02] MEDS: ATENOLOL 25 MG TABLET PO (07:15)
== END 2025-06-02 08:35 | disposition short-term general hospital (02) ==
PROVIDERS: Emergency Provider Emergency Medicine
DX: S02.2XXA Fracture of nasal bones, initial encounter for closed fracture (principal); R04.0 Epistaxis; S00.83XA Contusion of other part of head, initial encounter; W07.XXXA Fall from chair, initial encounter; Z79.01 Long term (current) use of anticoagulants; I48.91 Unspecified atrial fibrillation
CPT/HCPCS: 30901; 36415; 70450; 70486; 85610; 99282; 99284; 99285

== ENCOUNTER 2025-06-12 17:45 | Observation (INO) | payer MEDICARE, SELFPAY ==
[2025-06-12] VITALS (25 sets, daily range): BP systolic 103–174; BP diastolic 62–114; PULSE 56–91; TEMP 36.6–36.7; O2SAT 91–100; BMI 25.8; BMI 29.3
--- NOTE | 2025-06-12 17:55 | XR_ITS ---
The [place] [id number] Patient Name: INDIANA ZABALA MRN: [id number] date: 1940 Sex: M Assigned Patient Location: ED.MAIN Current Patient Location: ED.MAIN Accession/Order Number: [id number] Exam Date: 06/12/2025 18:43 Report Date: 06/12/2025 18:43 At the request of: JOSE KRISHNAN MD Procedure: XR chest 1V PA CHEST: CLINICAL HISTORY: slurred speech COMPARISON: 12/14/2024 The heart is mildly prominent and unchanged in size. The lungs are clear. The pulmonary vasculature is normal. Mediastinum and hilar regions are unremarkable. No pleural effusions are seen. Visualized bones are intact. XR/XR chest 1V IMPRESSION: NEGATIVE FOR ACUTE PLEURAL-PARENCHYMAL DISEASE.. Impression dictated by: Rajeev Anne M.D. 06/12/2025 6:43 PM Dictation Location: [place] [address] Electronically authenticated by: [id number] Y Date: 06/12/2025 18:43
--- NOTE | 2025-06-12 17:55 | CT_ITS ---
The [address] [address] Patient Name: INDIANA ZABALA MRN: [id number] date: 1940 Sex: M Assigned Patient Location: ED.MAIN Current Patient Location: ED.MAIN Accession/Order Number: [id number] Exam Date: 06/12/2025 19:57 Report Date: 06/12/2025 20:10 At the request of: JOSE KRISHNAN MD Procedure: CT angio neck CT angiogram head and neck performed with contrast INDICATION: Slurred speech, stroke protocol COMPARISON: CT head 06/12/2025 TECHNIQUE: Contiguous CT angiogram images through the head and neck coronal sagittal reformats.. Evaluation of the degree of ICA narrowing was performed utilizing NASCET criteria.. This CT exam was performed using one or more following dose reduction techniques: Automated exposure control, adjustment of the mA and/or kV according to patient size, or use of iterative reconstruction technique. FINDINGS: Mild plaque involving the arch aorta. Three-vessel arch. Qaxe-gm-sqhvuloa plaque left proximal subclavian artery. Left dominant vertebral artery. Right vertebral artery hypoplastic. Vertebral arteries are patent throughout their cervical course. Both carotid bifurcations are patent with moderate severe plaque both bifurcations with less than 50% narrowing her NASCET criteria. ICAs are patent. Mild plaque both intracranial and cavernous ICAs. Anterior cerebral arteries are patent. Middle cerebral arteries patent. Hypoplastic right vertebral artery and left vertebral artery join to form the basilar artery. Basilar artery, basilar tip and basilar bifurcation patent. Slight prominence of the basilar confluence noted. 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 Moderate severe disease right P1 segment. Ptdh-in-odnlwmoz disease left CUTTER OPERATOR BRICK. Dural venous sinuses poorly evaluated due to timing of bolus. Question right vocal cord palsy versus a questionable process unclear if this is due to technique. Prior cervical ACDF. CT/CT angio head Impression: Overall Mild diffuse atherosclerotic disease. Negative for large vessel occlusion or hemodynamically significant stenosis. Impression dictated by: Rajeev Anne M.D. 06/12/2025 8:10 PM Dictation Location: [place] [address] Electronically authenticated by: [id number] Y Date: 06/12/2025 20:10
--- NOTE | 2025-06-12 17:55 | ECG_ITS ---
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
--- NOTE | 2025-06-12 17:55 | CT_ITS ---
The [address] [address] Patient Name: INDIANA ZABALA MRN: [id number] date: 1940 Sex: M Assigned Patient Location: ED.MAIN Current Patient Location: ED.MAIN Accession/Order Number: [id number] Exam Date: 06/12/2025 19:57 Report Date: 06/12/2025 20:10 At the request of: JOSE KRISHNAN MD Procedure: CT angio neck CT angiogram head and neck performed with contrast INDICATION: Slurred speech, stroke protocol COMPARISON: CT head 06/12/2025 TECHNIQUE: Contiguous CT angiogram images through the head and neck coronal sagittal reformats.. Evaluation of the degree of ICA narrowing was performed utilizing NASCET criteria.. This CT exam was performed using one or more following dose reduction techniques: Automated exposure control, adjustment of the mA and/or kV according to patient size, or use of iterative reconstruction technique. FINDINGS: Mild plaque involving the arch aorta. Three-vessel arch. Hezg-ne-yecxiakn plaque left proximal subclavian artery. Left dominant vertebral artery. Right vertebral artery hypoplastic. Vertebral arteries are patent throughout their cervical course. Both carotid bifurcations are patent with moderate severe plaque both bifurcations with less than 50% narrowing her NASCET criteria. ICAs are patent. Mild plaque both intracranial and cavernous ICAs. Anterior cerebral arteries are patent. Middle cerebral arteries patent. Hypoplastic right vertebral artery and left vertebral artery join to form the basilar artery. Basilar artery, basilar tip and basilar bifurcation patent. Slight prominence of the basilar confluence noted. 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 Moderate severe disease right P1 segment. Znnr-xq-vtdffbjy disease left MANAGEMENT ADVISOR. Dural venous sinuses poorly evaluated due to timing of bolus. Question right vocal cord palsy versus a questionable process unclear if this is due to technique. Prior cervical ACDF. CT/CT angio neck Impression: Overall Mild diffuse atherosclerotic disease. Negative for large vessel occlusion or hemodynamically significant stenosis. Impression dictated by: Rajeev Anne M.D. 06/12/2025 8:10 PM Dictation Location: [place] [address] Electronically authenticated by: [id number] Y Date: 06/12/2025 20:10
--- NOTE | 2025-06-12 17:56 | CT_ITS ---
The [address] [address] Patient Name: INDIANA ZABALA MRN: [id number] date: 1940 Sex: M Assigned Patient Location: ED.MAIN Current Patient Location: ED.MAIN Accession/Order Number: [id number] Exam Date: 06/12/2025 18:22 Report Date: 06/12/2025 18:27 At the request of: JOSE KRISHNAN MD Procedure: CT stroke head/brain wo con CT BRAIN WITHOUT CONTRAST: CLINICAL HISTORY: slurred speech stroke alert COMPARISON: 06/01/2025 TECHNIQUE: Contiguous axial unenhanced images were obtained through the brain. This CT exam was performed using one or more following dose reduction techniques: Automated exposure control, adjustment of the mA and/or kV according to patient size, or use of iterative reconstruction technique. FINDINGS: There is no evidence of midline shift, intra or extra-axial fluid collection, hemorrhage or CT evidence of acute large vascular distribution stroke. Mild involutional and chronic small vessel ischemic disease. Remote left parietal areas of gliosis. Visualized intraorbital contents appear unremarkable. Ctwq-sp-xzcybyon ethmoid sinus mucosal thickening. The surrounding soft tissues are normal. CT/CT stroke head/brain wo con IMPRESSION: NO ACUTE INTRACRANIAL ABNORMALITY. CHRONIC SMALL VESSEL AND CENTRAL INVOLUTIONAL CHANGES. REMOTE AREAS OF LEFT PARIETAL STROKE FINDINGS WERE DISCUSSED WITH DR. KRISHNAN OVER TELEPHONE 1826 HOURS ON 06/12/2025 Impression dictated by: Rajeev Anne M.D. 06/12/2025 6:27 PM Dictation Location: [place] [address] Electronically authenticated by: [id number] Y Date: 06/12/2025 18:27
--- NOTE | 2025-06-12 17:59 | ED.GENADUL1 ---
HPI HPI - General Adult General Chief complaint: Altered Mental Status Stated complaint: SLURRING WORDS Time Seen by Provider: 06/12/25 17:55 History of Present Illness HPI narrative: Stroke alert has been initiated. Patient is a 85-year-old male who started having slurred speech at 3 PM today. Patient was at home with his at 3 PM, and he started having some slurred speech and expressive aphasia. Patient did not arrive to the ER until approximately 6:00. Patient is on warfarin for A-fib. Patient has history of hypertension, diabetes, cholesterol. Patient lives at home with his . Patient is active at home, walks around with his 2 feet. No headache, chest pain, shortness of breath. History is from patient's . Patient's is scattered on his medical history and admittedly states that she does not know what blood thinner he is on and does not know his medication that well, patient takes care of his own medications. All systems are negative except as noted/marked. All systems reviewed and otherwise negative. Nurses note and vital signs reviewed and patient is not hypoxic. Patient exam was done when he returned back from CAT scan of the brain and was moved to trauma room 5. General: The patient appears well and in no apparent distress. Patient is resting comfortably on cart. Patient is not toxic, lethargic, or listless Skin: Warm, dry, no pallor noted. There is no rash noted. No petechiae, purpura. Head: Normocephalic, atraumatic; no carotid bruits bilateral. No facial droop. Eye: Normal conjunctiva, no drainage, EOMI. PERRL Ears, Nose, Mouth, and Throat: oral mucosa is moist. Nares patent. Mouth without vesicles. Cardiovascular: Irregular irregular Rate and Rhythm, no murmur, gallop, rub Respiratory: Patient is in no distress, no accessory muscle use, lungs are clear to auscultation, no wheezing, rales or rhonchi Back: non-tender, no CVA tenderness bilaterally to percussion. No CT LS midline pain GI: no tenderness to palpation, no masses appreciated. No rebound, guarding, or rigidity noted. No distention Musculoskeletal: Patient has full range of motion of all of the extremities, no motor, sensory, or focal neurological deficits Neurological: A&O x1, patient cannot tell me the month or age, patient has mild dysarthria with slurred speech, patient currently has no expressive aphasia; NIH 3. Patient did have expressive aphasia when he arrived, this was noted by Preeti KHAN. Patient has no expressive aphasia when he returned back from CT of the brain. Psychiatric: Cooperative Related Data Home Medications ?Medication ?Instructions ?Recorded ?Confirmed glimepiride 2 mg tablet 2 mg PO DAILY 08/21/23 06/12/25 levothyroxine 25 mcg tablet 25 mcg PO QAM 08/21/23 06/12/25 pravastatin 40 mg tablet 40 mg PO DAILY 08/21/23 06/12/25 tamsulosin 0.4 mg capsule 0.4 mg PO DAILY 08/21/23 06/12/25 warfarin 5 mg tablet (Novtoven) 5 mg PO MOWEFR 08/21/23 06/12/25 warfarin 2.5 mg tablet (Novtoven) 2.5 mg PO .4 days a week 08/22/23 06/12/25 finasteride 5 mg tablet 5 mg PO DAILY 11/13/23 06/12/25 coenzyme Q10 100 mg capsule (Co 100 mg PO DAILY 08/13/24 06/12/25 Q-10) gabapentin 300 mg capsule 300 mg PO DAILY 08/13/24 06/12/25 vitamin B complex (B-Complex 1 tab PO DAILY 08/13/24 06/12/25 tablet) omeprazole 40 mg capsule,delayed mg 06/12/25 release Previous Rx's ?Medication ?Instructions ?Recorded atenolol 25 mg tablet 25 mg PO BID #60 tabs 11/15/23 sodium chloride 1,000 mg soluble 1,000 mg PO TID #90 tabs 11/15/23 tablet Held on 06/12/25. Instructions: taken off recently Allergies Allergy/AdvReac Type Severity Reaction Status Date / Time No Known Drug Allergies Allergy Verified 06/12/25 18:03 Opioid HPI Opioid Management Most Recent Opioid Data: Last Pain Scale 0 12/15/24, 11:51 Last Pain Intensity 0 12/15/24, 11:51 Last ORT Total Score 0 12/14/24, 06:21 Last ORT Risk Category Low Risk 12/14/24, 06:21 Ur Phencyclidine Scrn, (NEGATIVE) Negative 08/21/23, 03:22 [facility] Medical History (Updated 06/12/25 @ 20:10 by Jonah Pacheco MD) Adult hypothyroidism ?E03.9 - Hypothyroidism, unspecified (ICD-10) Hyponatremia ?E87.1 - Hypo-osmolality and hyponatremia (ICD-10) Paroxysmal atrial fibrillation ?I48.0 - Paroxysmal atrial fibrillation (ICD-10) Type 2 diabetes mellitus with hyperglycemia ?E11.65 - Type 2 diabetes mellitus with hyperglycemia (ICD-10) Syncope ?R55 - Syncope and collapse (ICD-10) Abrasion of scalp ?S00.01XA - Abrasion of scalp, initial encounter (ICD-10) Closed head injury ?S09.90XA - Unspecified injury of head, initial encounter (ICD-10) Laceration of scalp ?S01.01XA - Laceration without foreign body of scalp, initial encounter (ICD-10) Low back pain ?M54.50 - Low back pain, unspecified (ICD-10) Lumbar spondylosis ?M47.816 - Spondylosis without myelopathy or radiculopathy, lumbar region (ICD-10) Thoracic back pain ?M54.6 - Pain in thoracic spine (ICD-10) 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 - Other specified mononeuropathies (ICD-10) Paresthesias in right hand ?R20.2 - Paresthesia of skin (ICD-10) Foreign body in right ear ?T16.1XXA - Foreign body in right ear, initial encounter (ICD-10) Hyponatremia ?E87.1 - Hypo-osmolality and hyponatremia (ICD-10) Hypomagnesemia ?E83.42 - Hypomagnesemia (ICD-10) RADHA (acute kidney injury) ?N17.9 - Acute kidney failure, unspecified (ICD-10) Influenza ?J11.1 - Influenza due to unidentified influenza virus with other respiratory manifestations (ICD-10) Hypomagnesemia ?E83.42 - Hypomagnesemia (ICD-10) Acute hyponatremia ?E87.1 - Hypo-osmolality and hyponatremia (ICD-10) Acute confusion ?R41.0 - Disorientation, unspecified (ICD-10) Diabetes ?E11.9 - Type 2 diabetes mellitus without complications (ICD-10) High cholesterol ?E78.00 - Pure hypercholesterolemia, unspecified (ICD-10) Atrial fibrillation ?I48.91 - Unspecified atrial fibrillation (ICD-10) Surgical History Hx of carpal tunnel repair ?Z98.890 - Other specified postprocedural states (ICD-10) Family History Father Family history of myocardial infarction Family history of hypertension Mother Family history of cancer Family history of diabetes mellitus Social History Within the past year, how often did you have a drink containing alcohol: 2-4 times a month Smoking status: Never smoker Non-prescribed substance use: denies use Highest level of school completed/degree received: high school graduate Are you now , , , , never or living with a partner: Little interest or pleasure in doing things: not at all Feeling down, depressed, or hopeless: not at all Gender Identity: male Exam Constitutional Vital Signs, click to edit/add: Last Vital Signs Temp 97.9 F 06/12/25 18:00 Pulse 57 L 06/12/25 18:50 Resp 19 06/12/25 18:50 BP 139/83 06/12/25 18:45 Pulse Ox 99 06/12/25 18:50 O2 Del Method Room Air 06/12/25 18:00 Course Vital Signs Vital signs: Vital Signs Blood Pressure 157/83 H 06/12/25 17:58 Pulse Oximetry 96 06/12/25 17:58 Temperature 97.9 F 06/12/25 18:00 Pulse Rate 57 L 06/12/25 18:50 Respiratory Rate 19 06/12/25 18:50 Blood Pressure 139/83 06/12/25 18:45 Pulse Oximetry 99 06/12/25 18:50 Oxygen Delivery Method Room Air 06/12/25 18:00 Medical Decision Making [facility] Narrative Medical decision making narrative: Patient seen and examined: Stroke alert has been initiated Differential diagnosis includes but is not limited to: Stroke, TIA, brain mass, intracranial hemorrhage, hyponatremia, infection, dehydration, NH Diagnostics and management: Patient will have laboratory studies Relevant laboratory interpretation: Normal white blood cell, INR is 1.16. On May 30, patient's INR was 2.4. Radiological studies: Please see the formal radiological report. Verbal report from the radiologist of the CT of the brain showed no acute intracranial hemorrhage or acute stroke. MPRESSION: NO ACUTE INTRACRANIAL ABNORMALITY. CHRONIC SMALL VESSEL AND CENTRAL INVOLUTIONAL CHANGES. REMOTE AREAS OF LEFT PARIETAL STROKE FINDINGS WERE DISCUSSED WITH DR. PACHECO OVER TELEPHONE 1826 HOURS ON 06/12/2025 Impression dictated by: Rajeev Anne M.D. 06/12/2025 6:27 PM Reevaluation: 1814 patient had a NIH of 3. Patient did not know the age, did not know the month, and patient still has minimal slurred speech dysarthria, he no longer has expressive aphasia. When patient was being triaged, patient had expressive aphasia for Preeti KHAN. Patient's stated that the slurred speech started around 3 PM today at home. [address] have spoken to Dr High, stroke neurologist from the [facility], [facility]. Patient currently has a history of 1, minimal slurred speech. He recommended to do CTA angio of the head and neck, and then if there is no large vessel occlusion, patient may be admitted locally for stroke evaluation. Shared decision making: I discussed with the patient the necessary laboratory findings and radiological findings. Social barriers to healthcare: There are no food insecurities, there is no issue with transportation, there are no insurance barriers. Disposition: I discussed with the patient 1830 there was a call from the radiologist, stating the CT of the head stroke protocol showed no acute findings, chronic changes were noted. 1835 I attempted to admit the patient to the hospitalist for TIA. Hospitalist, wanted to wait for CTA of the head and neck to come back before patient could be admitted. 1845 patient is noted by Debra KHAN to intermittently have expressive aphasia versus confusion. In the last 20 minutes, patient will answer questions very clearly, and then will intermittently have a hard time answering some questions. Patient's INR is low. Patient is given a aspirin rectally secondary to intermittent aphasia and dysarthria. 1905 patient's case has been transitioned to Dr. Bass. She will follow-up with a CTA of the head and neck and then admit the patient for TIA. The recommendation from the stroke neurologist from the [facility] was that patient could be admitted locally for further testing. Critical care time 40 minutes exclusive from separate billable procedures that were performed. The following was considered in the determination of critical care but not limited to the level of medical decision making, intensive cardiac and/or respiratory monitoring, frequent vital sign monitoring, evaluation of laboratory studies, evaluation of radiographic studies, oxygen monitoring, and constant monitoring and speaking to family at bedside Lab Data Lab results reviewed: Yes I reviewed the patient's lab results Labs: Lab Results 06/12/25 06/12/25 06/12/25 Range/Units 17:58 18:29 19:15 WBC 6.0 (4.0-11.0) 10^3/uL RBC 3.65 L (4.70-6.10) 10^6/uL Hgb 11.6 L (14.0-18.0) g/dL Hct 32.9 L (42.0-54.0) % MCV 90.1 (80.0-94.0) fL MCH 31.8 (25.9-34.0) pg MCHC 35.3 H (29.9-35.2) g/dL RDW 12.9 (11.0-15.0) % Plt Count 230 (150-450) 10^3/uL MPV 10.3 (9.5-13.5) fL Neut % (Auto) 45.8 (43.0-75.0) % Lymph % (Auto) 36.8 (20.5-60.0) % [place] % (Auto) 9.0 (1.7-12.0) % Eos % (Auto) 7.0 (0.9-7.0) % Baso % (Auto) 1.2 (0.2-2.0) % Neut # (Auto) 2.7 (1.4-6.5) 10^3/uL Lymph # (Auto) 2.2 (1.2-3.8) 10^3/uL [place] # (Auto) 0.5 (0.3-0.8) 10^3/uL Eos # (Auto) 0.4 (0.0-0.7) 10^3/uL Baso # (Auto) 0.1 (0.0-0.1) 10^3/uL Abs Immat Gran (auto) 0.01 (0.00-0.03) 10^3/uL Imm/Tot Granulo (auto) 0.2 (0.0-0.5) % PT 12.1 H (9.0-11.6) sec INR 1.16 APTT 26.6 (22.3-36.2) sec Sodium 134 L (136-145) mmol/L Potassium 4.1 (3.5-5.1) mmol/L Chloride 97 L (98-107) mmol/L Carbon Dioxide 30.5 (21.0-32.0) mmol/L Anion Gap 10.6 BUN 48.0 H (7.0-18.0) mg/dL Creatinine 0.92 (0.70-1.30) mg/dL Est GFR ( Amer) >60 (>=60 mL/min/1.73m^2) Est GFR (Non-Af Amer) >60 (>=60 mL/min/1.73m^2) BUN/Creatinine Ratio 52.2 Glucose 118 H (74-106) mg/dL Calcium 9.3 (8.5-10.1) mg/dL Magnesium 1.6 L (1.8-2.4) mg/dL Total Bilirubin 0.5 (0.2-1.0) mg/dL AST 26 (15-37) U/L ALT 26 (16-63) U/L Alkaline Phosphatase 97 (46-116) U/L Total Creatine Kinase 86 (39-308) U/L Troponin I High Sens 6.7 (4.0-76.1) pg/mL Total Protein 6.8 (6.4-8.2) g/dL Albumin 3.6 (3.4-5.0) g/dL Globulin 3.2 g/dL Albumin/Globulin Ratio 1.1 Urine Color Lt. yellow (YELLOW) Urine Clarity Clear (CLEAR) Urine pH 7.0 (5.0-9.0) Ur Specific [place] 1.010 (1.005-1.025) Urine Protein Negative (NEG/TRACE) mg/dL Urine Glucose (UA) Negative (NEGATIVE) mg/dL Urine Ketones Negative (NEGATIVE) mg/dL Urine Occult Blood Negative (NEGATIVE) Urine Nitrite Negative (NEGATIVE) Urine Bilirubin Negative (NEGATIVE) Urine Urobilinogen 0.2 (0.2-1.0) EU/dL Ur Leukocyte Esterase Negative (NEGATIVE) Urine RBC None seen (0-2) #/HPF Urine WBC None seen (NONE SEEN) #/HPF Ur Squamous Epith Cells Rare (NONE/RARE) #/LPF Urine Crystals None seen (None Seen) #/HPF Urine Bacteria None seen (NONE SEEN) #/HPF Urine Casts None seen (NONE SEEN) #/LPF Urine Mucus None seen (NONE SEEN) Ur Culture Indicated? No POC Glucose 117 H (74-106) mg/dL ECG Data Attestation: I personally reviewed and interpreted this ECG as follows: (EKG #1. EKG interpretation. Irregular irregular rhythm at 55 beats a minute. History of A-fib. QTc of 420.) Interpretation: EKG #2. Irregular irregular at 68 beats a minute. Normal axis deviation. No acute ST elevation, no acute ectopy. QTc of 428. Less artifact and EKG #1, no acute changes. Discharge Plan Discharge Patient Disposition: Still a Patient
[2025-06-12 18:42] LABS: Hematocrit 32.9 % (42.0-54.0); Hemoglobin 11.6 g/dL (14.0-18.0); Immature Granulocytes Abs Auto 0.01 10^3/uL (0.00-0.03); Immature Granulocytes Pct Auto 0.2 % (0.0-0.5); Lymphocytes Absolute Auto 2.2 10^3/uL (1.2-3.8); Mean Corpuscular HGB Conc 35.3 g/dL (29.9-35.2); Mean Corpuscular Hemoglobin 31.8 pg (25.9-34.0); Mean Corpuscular Volume 90.1 fL (80.0-94.0); Platelet Count 230 10^3/uL (150-450); Red Blood Count 3.65 10^6/uL (4.70-6.10); White Blood Count 6.0 10^3/uL (4.0-11.0)
--- NOTE | 2025-06-12 18:51 | ECG_ITS ---
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 Measurements Intervals [place] Rate: 68 P: -73570 ND: -53121 QRS: 0 QRSD: 98 T: 56 QT: 412 QTc: 428 Interpretive Statements 1210 Atrial fibrillation abnormal ECG Compared to ECG 12/14/2024 03:28 No significant changes Electronically Signed On 06-12-2025 19:52:56 EDT by SHIVA DÍAZ M.D.
[2025-06-12 18:53] LABS: Magnesium 1.6 mg/dL (1.8-2.4)
[2025-06-12 18:55] LABS: INR 1.16; Partial Thromboplastin Time 26.6 sec (22.3-36.2); Prothrombin Time 12.1 sec (9.0-11.6)
[2025-06-12 18:56] LABS: Creatine Kinase 86 U/L (39-308)
[2025-06-12 19:05] LABS: Alanine Aminotransferase 26 U/L (16-63); Albumin Globulin Ratio 1.1; Albumin Level 3.6 g/dL (3.4-5.0); Alkaline Phosphatase 97 U/L (46-116); Anion Gap 10.6; Aspartate Amino Transferase 26 U/L (15-37); Blood Urea Nitrogen 48.0 mg/dL (7.0-18.0); Calcium 9.3 mg/dL (8.5-10.1); Carbon Dioxide 30.5 mmol/L (21.0-32.0); Chloride 97 mmol/L (98-107); Estimated GFR (African America >60 (>=60 mL/min/1.73m^2); Estimated GFR (Non-African Ame >60 (>=60 mL/min/1.73m^2); Globulin 3.2 g/dL; Glucose 118 mg/dL (74-106); Potassium 4.1 mmol/L (3.5-5.1); Sodium 134 mmol/L (136-145); Total Protein 6.8 g/dL (6.4-8.2)
[2025-06-12 19:31] LABS: Glucose Urine UA NEGATIVE (NEGATIVE)
[2025-06-12 19:41] LABS: Cast Seen? NONE SEEN #/LPF (NONE SEEN); Crystals Seen? None Seen #/HPF (None Seen); Urine Culture Indicated NO
[2025-06-12] MEDS: 0.9 % SODIUM CHLORIDE 1,000 ML 1000 ML IV (20:24)
[2025-06-12] MEDS: ASPIRIN 300 MG SUPP.RECT PR (20:24)
--- NOTE | 2025-06-12 20:55 | ED.GENADUL1 ---
HPI HPI - General Adult General Chief complaint: Altered Mental Status Stated complaint: SLURRING WORDS Time Seen by Provider: 06/12/25 17:55 Source: patient and family Mode of arrival: Wheelchair Limitations: no limitations History of Present Illness HPI narrative: The patient is an 85-year-old gentleman who presented to the emergency department for onset of slurred speech and aphasia beginning at 1500. My colleague initially saw this gentleman and I was taking the patient in sign-out pending return of CTA of the head and neck. In addition we were waiting for the coverage of metabolic panel as well as troponin. Dr. Pacheco had spoken to the hospitalist however because not all of the results were back, admission was deferred. I had an opportunity to speak with Dr. Hyatt at 20:30. He was extremely helpful in facilitating the admission of this patient. I verified that the patient received aspirin by my colleague. CTA Head:: Impression: Overall Mild diffuse atherosclerotic disease. Negative for large vessel occlusion or hemodynamically significant stenosis. CTA neck:Impression: Overall Mild diffuse atherosclerotic disease. Negative for large vessel occlusion or hemodynamically significant stenosis. Impression dictated by: Rajeev Anne M.D. 06/12/2025 8:10 PM Diagnosis: Ischemic cerebrovascular accident Subtherapeutic INR Related Data Home Medications ?Medication ?Instructions ?Recorded ?Confirmed glimepiride 2 mg tablet 2 mg PO DAILY 08/21/23 06/12/25 levothyroxine 25 mcg tablet 25 mcg PO QAM 08/21/23 06/12/25 pravastatin 40 mg tablet 40 mg PO DAILY 08/21/23 06/12/25 tamsulosin 0.4 mg capsule 0.4 mg PO DAILY 08/21/23 06/12/25 warfarin 5 mg tablet (Jantoven) 5 mg PO MOWEFR 08/21/23 06/12/25 warfarin 2.5 mg tablet (Jantoven) 2.5 mg PO .4 days a week 08/22/23 06/12/25 finasteride 5 mg tablet 5 mg PO DAILY 11/13/23 06/12/25 coenzyme Q10 100 mg capsule (Co 100 mg PO DAILY 08/13/24 06/12/25 Q-10) gabapentin 300 mg capsule 300 mg PO DAILY 08/13/24 06/12/25 vitamin B complex (B-Complex 1 tab PO DAILY 08/13/24 06/12/25 tablet) omeprazole 40 mg capsule,delayed mg 06/12/25 release Previous Rx's ?Medication ?Instructions ?Recorded atenolol 25 mg tablet 25 mg PO BID #60 tabs 11/15/23 sodium chloride 1,000 mg soluble 1,000 mg PO TID #90 tabs 11/15/23 tablet Held on 06/12/25. Instructions: taken off recently Allergies Allergy/AdvReac Type Severity Reaction Status Date / Time No Known Drug Allergies Allergy Verified 06/12/25 18:03 Opioid HPI Opioid Management Most Recent Opioid Data: Last Pain Scale 0 12/15/24, 11:51 Last Pain Intensity 0 12/15/24, 11:51 Last ORT Total Score 0 12/14/24, 06:21 Last ORT Risk Category Low Risk 12/14/24, 06:21 Ur Phencyclidine Scrn, (NEGATIVE) Negative 08/21/23, 03:22 [facility] Medical History (Updated 06/12/25 @ 20:15 by Jonah Pacheco MD) Adult hypothyroidism ?E03.9 - Hypothyroidism, unspecified (ICD-10) Hyponatremia ?E87.1 - Hypo-osmolality and hyponatremia (ICD-10) Paroxysmal atrial fibrillation ?I48.0 - Paroxysmal atrial fibrillation (ICD-10) Type 2 diabetes mellitus with hyperglycemia ?E11.65 - Type 2 diabetes mellitus with hyperglycemia (ICD-10) Syncope ?R55 - Syncope and collapse (ICD-10) Abrasion of scalp ?S00.01XA - Abrasion of scalp, initial encounter (ICD-10) Closed head injury ?S09.90XA - Unspecified injury of head, initial encounter (ICD-10) Laceration of scalp ?S01.01XA - Laceration without foreign body of scalp, initial encounter (ICD-10) Low back pain ?M54.50 - Low back pain, unspecified (ICD-10) Lumbar spondylosis ?M47.816 - Spondylosis without myelopathy or radiculopathy, lumbar region (ICD-10) Thoracic back pain ?M54.6 - Pain in thoracic spine (ICD-10) 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 - Other specified mononeuropathies (ICD-10) Paresthesias in right hand ?R20.2 - Paresthesia of skin (ICD-10) Foreign body in right ear ?T16.1XXA - Foreign body in right ear, initial encounter (ICD-10) Hyponatremia ?E87.1 - Hypo-osmolality and hyponatremia (ICD-10) Hypomagnesemia ?E83.42 - Hypomagnesemia (ICD-10) RADHA (acute kidney injury) ?N17.9 - Acute kidney failure, unspecified (ICD-10) Influenza ?J11.1 - Influenza due to unidentified influenza virus with other respiratory manifestations (ICD-10) Hypomagnesemia ?E83.42 - Hypomagnesemia (ICD-10) Acute hyponatremia ?E87.1 - Hypo-osmolality and hyponatremia (ICD-10) Acute confusion ?R41.0 - Disorientation, unspecified (ICD-10) Diabetes ?E11.9 - Type 2 diabetes mellitus without complications (ICD-10) High cholesterol ?E78.00 - Pure hypercholesterolemia, unspecified (ICD-10) Atrial fibrillation ?I48.91 - Unspecified atrial fibrillation (ICD-10) Surgical History Hx of carpal tunnel repair ?Z98.890 - Other specified postprocedural states (ICD-10) Family History Father Family history of myocardial infarction Family history of hypertension Mother Family history of cancer Family history of diabetes mellitus Social History Within the past year, how often did you have a drink containing alcohol: 2-4 times a month Smoking status: Never smoker Non-prescribed substance use: denies use Highest level of school completed/degree received: high school graduate Are you now , , , , never or living with a partner: Little interest or pleasure in doing things: not at all Feeling down, depressed, or hopeless: not at all Gender Identity: male Exam Constitutional Vital Signs, click to edit/add: Last Vital Signs Temp 97.9 F 06/12/25 18:00 Pulse 57 L 06/12/25 18:50 Resp 19 06/12/25 18:50 BP 139/83 06/12/25 18:45 Pulse Ox 99 06/12/25 18:50 O2 Del Method Room Air 06/12/25 18:00 Course Vital Signs Vital signs: Vital Signs Blood Pressure 157/83 H 06/12/25 17:58 Pulse Oximetry 96 06/12/25 17:58 Temperature 97.9 F 06/12/25 18:00 Pulse Rate 57 L 06/12/25 18:50 Respiratory Rate 19 06/12/25 18:50 Blood Pressure 139/83 06/12/25 18:45 Pulse Oximetry 99 06/12/25 18:50 Oxygen Delivery Method Room Air 06/12/25 18:00 Medical Decision Making Lab Data Labs: Lab Results 06/12/25 06/12/25 06/12/25 Range/Units 17:58 18:29 19:15 WBC 6.0 (4.0-11.0) 10^3/uL RBC 3.65 L (4.70-6.10) 10^6/uL Hgb 11.6 L (14.0-18.0) g/dL Hct 32.9 L (42.0-54.0) % MCV 90.1 (80.0-94.0) fL MCH 31.8 (25.9-34.0) pg MCHC 35.3 H (29.9-35.2) g/dL RDW 12.9 (11.0-15.0) % Plt Count 230 (150-450) 10^3/uL MPV 10.3 (9.5-13.5) fL Neut % (Auto) 45.8 (43.0-75.0) % Lymph % (Auto) 36.8 (20.5-60.0) % [place] % (Auto) 9.0 (1.7-12.0) % Eos % (Auto) 7.0 (0.9-7.0) % Baso % (Auto) 1.2 (0.2-2.0) % Neut # (Auto) 2.7 (1.4-6.5) 10^3/uL Lymph # (Auto) 2.2 (1.2-3.8) 10^3/uL [place] # (Auto) 0.5 (0.3-0.8) 10^3/uL Eos # (Auto) 0.4 (0.0-0.7) 10^3/uL Baso # (Auto) 0.1 (0.0-0.1) 10^3/uL Abs Immat Gran (auto) 0.01 (0.00-0.03) 10^3/uL Imm/Tot Granulo (auto) 0.2 (0.0-0.5) % PT 12.1 H (9.0-11.6) sec INR 1.16 APTT 26.6 (22.3-36.2) sec Sodium 134 L (136-145) mmol/L Potassium 4.1 (3.5-5.1) mmol/L Chloride 97 L (98-107) mmol/L Carbon Dioxide 30.5 (21.0-32.0) mmol/L Anion Gap 10.6 BUN 48.0 H (7.0-18.0) mg/dL Creatinine 0.92 (0.70-1.30) mg/dL Est GFR ( Amer) >60 (>=60 mL/min/1.73m^2) Est GFR (Non-Af Amer) >60 (>=60 mL/min/1.73m^2) BUN/Creatinine Ratio 52.2 Glucose 118 H (74-106) mg/dL Calcium 9.3 (8.5-10.1) mg/dL Magnesium 1.6 L (1.8-2.4) mg/dL Total Bilirubin 0.5 (0.2-1.0) mg/dL AST 26 (15-37) U/L ALT 26 (16-63) U/L Alkaline Phosphatase 97 (46-116) U/L Total Creatine Kinase 86 (39-308) U/L Troponin I High Sens 6.7 (4.0-76.1) pg/mL Total Protein 6.8 (6.4-8.2) g/dL Albumin 3.6 (3.4-5.0) g/dL Globulin 3.2 g/dL Albumin/Globulin Ratio 1.1 Urine Color Lt. yellow (YELLOW) Urine Clarity Clear (CLEAR) Urine pH 7.0 (5.0-9.0) Ur Specific [place] 1.010 (1.005-1.025) Urine Protein Negative (NEG/TRACE) mg/dL Urine Glucose (UA) Negative (NEGATIVE) mg/dL Urine Ketones Negative (NEGATIVE) mg/dL Urine Occult Blood Negative (NEGATIVE) Urine Nitrite Negative (NEGATIVE) Urine Bilirubin Negative (NEGATIVE) Urine Urobilinogen 0.2 (0.2-1.0) EU/dL Ur Leukocyte Esterase Negative (NEGATIVE) Urine RBC None seen (0-2) #/HPF Urine WBC None seen (NONE SEEN) #/HPF Ur Squamous Epith Cells Rare (NONE/RARE) #/LPF Urine Crystals None seen (None Seen) #/HPF Urine Bacteria None seen (NONE SEEN) #/HPF Urine Casts None seen (NONE SEEN) #/LPF Urine Mucus None seen (NONE SEEN) Ur Culture Indicated? No POC Glucose 117 H (74-106) mg/dL Discharge Plan Discharge Chief Complaint: Altered Mental Status Clinical Impression: Subtherapeutic international normalized ratio (INR), Ischemic cerebrovascular accident (CVA) Patient Disposition: Admitted as Observation Time of Disposition Decision: 20:56 Condition: Fair
--- OUTSIDE RECORDS SUMMARY | 2025-06-12 21:30 | XMS_ITS | CCD ---
Author Organization [facility] Care Team Providers Care Dermatology Physician Name Role Phone Cathleen Reneria Unavailable Unavailable Primary Care Provider Unavailrogerio e Edgard Jada A Attending Unavailable Rene, Jada A Admitting Unavailable Rene, Jada A Primary Care Unavailable Rene Jada A Attending Unavailable Rene Jada A Admitting Unavailable Edgard Jada A Primary Care Unavailable Kylah Garcia Primary Care Physician [phone] Nathaniel Bonilla MD Attending Unavailable Kylah Garcia MD Primary Care Provider Kylah Garcia Attending Unavailable Kylah Garcia Admitting Unavailable Hernández, Axel T Admitting Unavailable Hernández, Axel T Attending Unavailable Hernández, Axel T Referring Unavailable Kylah Garcia Attending Unavailable Kylah Garcia Attending Unavailable Hernández, Axel T Admitting Unavailable Hernández, Axel T Attending Unavailable Hernández, Axel T Referring Unavailable Kylah Garcia Attending Unavailable Kylah Garcia Admitting Unavailable Kylah Garcia MD Primary Care Provider [phone] EDGAR, AXEL Smalls Referring Unavailable HERNÁNDEZ, AXEL T Attending Unavailable KYLAH GARCIA Referring Unavailable HERNÁNDEZ, AXEL T Attending Unavailable HERNÁNDEZ, AXEL T Referring Unavailable HERNÁNDEZ, AXEL T Attending Unavailable HERNÁNDEZ, AXEL T Referring Unavailable BEJSHALA Attending Unavailable HERNÁNDEZ, AXEL T Attending Unavailable HERNÁNDEZ, AXEL T Referring Unavailable EMILIANO ESCAMILLA Attending Unavailable JELANI CHOW Attending Unavailable Kylah Garcia Attending Unavailable Kylah Garcia Admitting Unavailable Kylah Garcia Attending Unavailable Kylah Garcia Admitting Unavailable Kylah Garcia Attending Unavailable Kylah Garcia Attending Unavailable Kylah Garcia Admitting Unavailable Kylah Garcia Attending Unavailable Kylah Garcia Attending Unavailable Ross, Kylah E. Attending Unavailable [...] Axel T Attending Unavailable Ross, Kylah E. Admitting Unavailable Ross, Kylah E. Attending Unavailable REYES, YANIQUE A Attending Unavailable REYES, YANIQUE A Attending Unavailable Ross, Kylah E. Attending Unavailable REYES, YANIQUE A Admitting Unavailable REYES, YANIQUE A Attending Unavailable Hernández, Axel T Admitting Unavailable Hernández, Axel T Attending Unavailable Hernández, Axel T Referring Unavailable Ross, Yklah E. Attending Unavailable Ross, Kylah E. Attending Unavailable Ross, Kylah E. Attending Unavailable Ross, Kylah E. Attending Unavailable Ross, Kylah E. Attending Unavailable Ross, Kylah E. Attending Unavailable Ross, Kylah E. Attending Unavailable MouranyDavie. Attending Unavailable Ross, Kylah E. Referring Unavailable MoDavie christian. Attending Unavailable NONE, XXXX Referring Unavailable JulissanKashif nesbitt D Admitting Unavailable KirnKashif nesbitt Attending Unavailable Taiwo TIRE VULCANIZER - ACCOUNTING FILE CLERKJaden Primary Care Provider Kylah Garcia E. Referring Unavailable LALITHA Dubose Admitting Unavailable LALITHA Dubose Attending Unavailable REYES, YANIQUE A Attending Unavailable REYES, YANIQUE A Admitting Unavailable AVASTHI, FLACO Attending Unavailable AVASTHI, FLACO Admitting Unavailable TAIWO, JADEN Primary Care Unavailable KAYE BARNETT Referring Unavailable BRIGIDA PINA Consulting Unavailable JOSÉ GOOD Consulting Unavailable CICI DUMONT Consulting Unavailable REYES, YANIQUE A Attending Unavailable REYES, YANIQUE A Admitting Unavailable REYES, YANIQUE A Admitting Unavailable REYES, YANIQUE A Attending Unavailable REYES, YANIQUE A Attending Unavailable REYES, YANIQUE A Admitting Unavailable YANIQUE CHAMBERS Attending Unavailable Allergies Allergy Classification Reported Allergen(s) Allergy Type Date of Onset Reaction(s) Facility (10 sources) No Known Medication Allergies; Translations: [No Known Medication Allergies] Propensity to adverse reactions (disorder) [facility] Repository Medications Current Medications Medication Drug Class(es) Dates Sig (Normalized) Sig (Original) Acetaminophen (1 source) Start: 06-02-2025 acetaminophen (TYLENOL) tablet 650 mg acetaminophen 325 mg / HYDROcodone bitartrate 5 mg oral tablet (11 sources) Opioid Agonist Start: 03-20-2024 take 1 tablet by mouth every four hours as needed for pain [place] 325 mg-5 mg oral tablet See Instructions, for pain, 10 tab(s), Refill(s) 0, 1 tab(s) Oral q4hr PRN Pain. Duration 7 days., [id number], 180.5, cm, 03/20/24 15:05:00 EDT, Height/Length Dosing, 82.5, kg, 03/20/24 15:05:00 EDT, Weight Dosing Start Date: 03/20/24 Status: Ordered End: 11-26-2024 HYDROcodone-acetaminophen (N orco) 5-325 MG tablet 11/26/2024 Discontinued (Therapy completed) benzonatate 200 mg oral capsule (10 sources) Non-narcotic Antitussive End: 11-26-2024 take 1 capsule by mouth three times daily benzonatate (Tessalon) 200 MG capsule Take 1 capsule 3 times a day by oral route. 11/26/2024 Discontinued (Therapy completed) cephalexin 500 mg oral capsule (12 sources) Cephalosporin Antibacterial Start: 06-05-2025 End: 06-09-2025 take 1 capsule by mouth every eight hours cephALEXin (KEFLEX) 500 MG capsule Take 1 capsule by mouth every 8 hours for 4 days 12 capsule 06/05/2025 06/09/2025 Active Start: 06-02-2025 take 1 dose by mouth three times daily 500 mg, Oral, EVERY 8 HOURS SCHEDULED (3 times per day), First dose on 06/02/25 at 1415, Until Discontinued, Antimicrobial Indications: Other, Other Abx Indication: nasal packing End: 11-26-2024 cephalexin (Keflex) 500 MG c apsule 11/26/2024 Discontinued (Therapy completed) cholecalciferol 0.125 mg oral capsule (14 sources) Vitamin D take 1 capsule by mouth every twenty-four hours CoQ10 (18 sources) Start: 03-06-2024 CoQ10 See Instructions, PRN Prophylaxis, Refills(s) 0 [...] AFFECTED AREA(S) BY TOPICAL ROUTE BID Active fluticasone propionate 0.05 mg/actuat metered dose nasal spray (14 sources) Corticosteroid Start: 08-31-2024 fluticasone Nasal 0.05 mg/inh [place] See Instructions, 48 mL, Refill(s) 1, USE 1 SPRAY IN EACH NOSTRIL TWICE A DAY, [id number], 178, cm, 08/28/24 14:50:00 EDT, Height/Length Dosing, 82.2, kg, 08/28/24 14:50:00 EDT, Weight Dosing Start Date: 08/31/24 Status: Ordered Start: 07-03-2024 take 1 spray(s) nasa l route twice daily Flonase 0.05 mg/inh [place] 1 spray(s), Nasal, BID, 16 gram, Refill(s) 0, each nostril, [id number], 178, cm, 07/03/24 10:05:00 EDT, Height/Length Dosing, 80.8, kg, 07/03/24 10:05:00 EDT, Weight Dosing Start Date: 07/03/24 Status: Ordered End: 11-26-2024 take 1 spray(s) nasal route once daily at bedtime fluticasone (Flonase) 50 MCG/ACT nasal spray USE 1 SPRAY(S) IN EACH NOSTRIL ONCE DAILY AT BEDTIME 11/26/2024 Discontinued (Therapy completed) glimepiride 2 mg oral tablet (20 sources) Sulfonylurea Start: 02-18-2025 take 1 tablet by mouth once daily glimepiride 2 mg Tab 2 mg = 1 tab(s), Oral, Daily, # 90 tab(s), Refills(s) 1, Pharmacy: [facility], 178.6, cm, 02/05/25 13:36:00 EDT, Height/Length Dosing, 82.2, kg, 02/05/25 13:36:00 EDT, Weight Dosing Start Date: 02/18/25 Status: Ordered Quantity: 90.0 Unit: tab(s) Repeat number: 2 Start: 10-14-2014 glimepiride 2 mg Tab See Instructions, TAKE 1 TABLET DAILY, # 3 tab(s), Refills(s) 0, Pharmacy: [facility], 178, cm, 08/07/24 10:59:00 EDT, Height/Length Dosing, 78.2, kg, 08/07/24 10:59:00 EDT, Weight Dosing Start Date: 08/20/24 Status: Ordered Quantity: 3.0 Unit: tab(s) Repeat number: 1 Comment on above: Take 1 tablet by alyssa once daily. glucagon (rdna) 1 mg injection (1 source) Antihypoglycemic Agent Start: 06-02-2025 1 mg, SubCUTAneous, PRN, Starting on 06/02/25 at 1205, Until Discontinued, Low blood sugar, Blood glucose LESS THAN 70 mg/dL and patient NOT ALERT or NPO and does not have IV access., After administration, attempt intravenous access and start dextrose 10% at 100 mL/hr. Repeat blood glucose in 15 minutes x 2 and notify provider. Reconstitute powder for injection by adding 1 mL of professor of chemistry-supplied sterile diluent or sterile water for injection to a vial containing 1 mg of the drug, to provide solutions containing 1 mg/mL. Shake vial gently to dissolve. Glucose (3 sources) Start: 06-02-2025 IntraVENous, at 100 mL/hr, CONTINUOUS PRN, if [...] after 60 minutes, discontinue dextrose 10% infusion. Start: 06-02-2025 dextrose bolus 10% 125 mL Start: 06-02-2025 16 g (4 tablet ), Oral, PRN, Starting on Tue06/02/25 at 1205, Until Discontinued, Low blood sugar, If blood glucose is LESS THAN 70 mg/dL and patient is alert and tolerating oral. Give 4 tablets (16g) Repeat blood glucose in 15 minutes. If blood glucose is LESS THAN 70 mg/dL, repeat treatment and recheck blood glucose in 15 minutes x 2. If blood glucose remains LESS THAN 70 mg/dL, notify provider. hydroCHLOROthiazide 25 mg oral tablet (13 sources) Thiazide Diuretic take 1 tablet by mouth once daily hydroCHLOROthiazide (HYDRODiuril) 25 MG tablet Take 1 tablet by mouth Daily Active lisinopril 10 mg oral tablet (2 sources) Angiotensin Converting Enzyme Inhibitor Start: 2024 take 1 tablet by mouth once daily lisinopril (PRINIVIL;ZESTRIL) 10 MG tablet Take 1 tablet by mouth daily 30 tablet 1 06/06/2025 Active Start: 06-03-2025 take 10 mg by mouth once daily 10 mg, Oral, DAILY, First dose on Tue06/03/25 at 1145, Until Discontinued 100 ml magnesium sulfate 10 mg/ml injection (1 source) Start: 06-02-2025 1,000 mg, IntraVENous, at 100 mL/hr, Administer over 1 Hours, PRN, Other, Per IV Magnesium Replacement Protocol, Starting on Tue06/02/25 at 1205, Mg Lab Replacement Action 1.4-1.6 1 gram IVPB x 2 doses (2 gram Total) 1.0-1.3 1 gram IVPB x 4 doses (4 gram Total) methocarbamol 750 mg oral tablet (9 sources) [...] # 90 cap(s), Refills(s) 1, Pharmacy: [facility], 178.6, cm, 12/24/24 13:13:00 EST, Height/Length Dosing, 79, kg, 12/24/24 13:13:00 EST, Weight Dosing Start Date: 01/07/25 Status: Ordered Quantity: 90.0 Unit: cap(s) Repeat number: 2 Start: 12-01-2023 take 1 capsule by nj ut once daily omeprazole 40 mg Cap-DR 40 mg = 1 cap(s), Oral, Daily, # 90 cap(s), Refills(s) 1, Pharmacy: [facility], 178, cm, 08/28/24 14:50:00 EDT, Height/Length Dosing, 82.2, kg, 08/28/24 14:50:00 EDT, Weight Dosing Start Date: 08/30/24 Status: Ordered take 2 capsules by m out once daily omeprazole (PRILOSEC) 20 MG delayed release capsule Take 2 capsules by mouth daily Suspended ondansetron (ZOFRAN-ODT) disintegrating tablet 4 mg (1 source) Start: 06-02-2025 ondansetron (ZOFRAN-ODT) disintegrating tablet 4 mg Potassium Chloride (1 source) Start: 06-02-2025 potassium chloride (KLOR-CON M) extended release tablet 40 mEq sildenafil 100 mg oral tablet (20 sources) Phosphodiesterase 5 Inhibitor Start: 07-03-2024 take 1 tablet by mouth once daily as needed sildenafil 100 mg Tab 100 mg = 1 tab(s), Oral, Daily, PRN for erectile dysfunction, 1 hour before sexual activity, # 5 tab(s), Refills(s) 0, Pharmacy: [facility], 178, cm, 07/03/24 10:05:00 EDT, Height/Length Dosing, 80.8, kg, 07/03/24 10:05:00 EDT, Weight Dosing Start Date: 07/03/24 Status: Ordered Quantity: 5.0 Unit: tab(s) Repeat number: 1 Start: 02-02-2024 End: 06-05-2025 take 1 tablet by mouth once daily as needed sildenafil 100 mg Tab 100 mg = 1 tab(s), Oral, Daily, PRN for erectile dysfunction, 1 hour before sexual activity, # 5 tab(s), Refills(s) 0, Pharmacy: [facility], 178.2, cm, 02/02/24 10:29:00 EDT, Height/Length Dosing, 84.1, kg, 02/02/24 10:29:00 EDT, Weight Dosing Start Date: 02/02/24 Status: Ordered take 1 tablet by alyssa once daily as needed sildenafil (Viagra) 50 MG tablet TAKE 1 TABLET BY MOUTH ONCE DAILY NEEDED FOR INTERCOURSE FOR 14 DAYS Active Sodium Chloride 1000 mg oral tablet, soluble (1 source) Start: 11-13-2024 take 1 tablet by mouth once daily Sodium Chloride 1000 mg oral tablet, soluble See Instructions, 30 tab(s), Refill(s) 0, [facility] one tablet daily[id number], cm, 11/01/24 9:21:00 [...] dysfunction, # 7 tab(s), Refills(s) 0, [id number] 178.6, cm, 02/05/25 13:36:00 EDT, Height/Length Dosing, 82.2, kg, 02/05/25 13:36:00 EDT, Weight Dosing Start Date: 05/07/25 Status: Ordered Quantity: 7.0 Unit: tab(s) Repeat number: 1 tiZANidine 4 mg oral tablet (8 sources) [...] ubidecarenone 200 mg oral capsule (14 sources) urea (URE-NA) 15 g PACK packet (4 sources) Start: 06-06-2025 End: 07-06-2025 take 15 g by mouth once daily urea (URE-NA) 15 g PACK packet Take 15 g by mouth daily 30 each 06/06/2025 07/06/2025 Active Start: 06-05-2025 take 15 g by mouth once daily urea (URE-NA) 15 g PACK packet Take 15 g by mouth daily 30 each 3 06/05/2025 Active Start: 06-05-2025 take 15 g by mouth once daily urea (URE-NA) 15 g PACK packet Take 15 g by mouth daily 30 each 2 06/05/2025 Active urea (URE-NA) packet 15 g (1 source) Start: 06-06-2025 15 g, Oral, DA RASTA, First dose on [place] 06/06/25 at 0900, Until Discontinued, Mix each 15 g dose with 3 to 4 ounces of water or juice. vitamin B12 (19 sources) Vitamin B12 Start: [...] tablet (20 sources) Vitamin K Antagonist Start: 06-04-2025 5 mg, Oral, ONCE Warfarin, 1 dose, On Tue06/04/25 at 1800, Indication of Use: A Fib/A Flutter, What is the patient's goal INR? 2.0 - 3.0, Review INR prior to administration. Hazardous med- See facility policy for handling/disposal Start: 06-02-2025 End: 06-05-2025 2.5 mg, Oral, ONCE Warfarin, 1 dose, On Tue06/02/25 at 1800, Indication of Use: A Fib/A Flutter, What is the patient's goal INR? 2.0 - 3.0, Review INR prior to administration. Hazardous med- See facility policy for handling/disposal Start: 03-06-2024 take 1 tablet by alyssa th once daily warfarin 5 mg Tab 5 mg = 1 tab(s), Oral, Daily, # 90 tab(s), Refills(s) 0, Pharmacy: [facility], 178.6, cm, 02/05/25 13:36:00 EDT, Height/Length Dosing, 82.2, kg, 03/25/25 13:36:00 EDT, Weight Dosing Start Date: 03/27/25 Status: Ordered Quantity: 90.0 Unit: tab(s) Repeat number: 1 Start: 12-01-2023 take 0.5 [...] 1/2 tablet orally every other day Active warfarin placeholder: dosing by pharmacy (1 source) Start: 06-02-2025 Please contact the pharmacy if a dose is not entered by 1600. Review INR prior to warfarin administration. Completed/Discontinued Medications Medication Drug Class(es) Dates Sig (Normalized) Sig (Original) aspirin 81 mg oral tablet (1 source) Platelet Aggregation Inhibitor, Nonsteroidal Anti-inflammatory Drug Start: 08-10-2005 take 1 tablet by mouth once daily ASPIRIN 81 MG ORAL TAB Take one (1) tablet daily . 0 08/10/2005 Active Comment on above: Take one (1) tablet daily . atenolol 25 mg oral tablet (20 sources) beta-Adrenergic Chema Start: 06-02-2025 take 25 mg by mouth twice daily 25 mg, Oral, 2 TIMES DAILY, First dose (after last modification) on 06/02/25 at 2100, Until Discontinued, Hold for heart rate Start: 05-20-2025 atenolol 25 mg Tab See Instructions, take 1/2 tab daily, # 45 tab(s), Refills(s) 2, Pharmacy: [facility], 178.6, cm, 05/09/25 8:18:00 EDT, Height/Length Dosing, 80.6, kg, 05/09/25 8:18:00 EDT, Weight Dosing Start Date: 05/20/25 Status: Ordered Quantity: 45.0 Unit: tab(s) Repeat number: 3 Start: 10-22-2024 atenolol 25 mg Tab See Instructions, take 1/2 tab daily, # 90 tab(s), Refills(s) 1, Pharmacy: [facility], 178, cm, 09/10/24 13:01:00 EDT, Height/Length Dosing, 80.1, kg, 09/10/24 13:01:00 EDT, Weight Dosing Start Date: 10/22/24 Status: Ordered Quantity: 90.0 Unit: tab(s) Repeat number: 2 Start: 04-20-2024 atenolol 25 mg Tab See Instructions, take 1/2 tab daily, # 30 tab(s), Refills(s) 5, Pharmacy: [id number], 180, cm, 04/20/24 13:27:00 EDT, Height/Length Dosing, 82.2, kg, 04/20/24 13:27:00 EDT, Weight Dosing Start Date: 04/20/24 Status: Ordered Start: 10-06-2015 take 1 tablet by alyssa th once daily atenolol 25 mg Tab 25 mg = 1 tab(s), Oral, Daily, # 90 tab(s), Refills(s) 0, Pharmacy: [facility], 178.2, cm, 02/02/24 10:29:00 EDT, Height/Length Dosing, 84.1, kg, 02/02/24 10:29:00 EDT, Weight Dosing Start Date: 02/22/24 Status: Ordered take 1 tablet by alyssa th every twelve hours Atenolol 25 MG 1 tablet Orally twice a day for 90 days Active Comment on above: TAKE 1 TABLET ONE TI ME DAILY b complex vitamins capsule (1 source) take 1 capsule by mouth once daily b complex vitamins capsule Take 1 capsule by mouth daily Suspended Blood-Glucose Meter (CONTOUR METER) monitoring kit (1 source) Start: 08-23-20 Blood-Glucose Meter (CONTOUR METER) monitoring kit Indications: Type II or unspecified type diabetes mellitus without mention of complication, not stated as uncontrolled Testing twice daily 1 Each 0 08/23/2012 Active Comment on above: Testing twice daily cyclobenzaprine hydrochloride 10 mg oral tablet (1 source) Muscle Relaxant End: 06-05-20 take 1 tablet by mouth three times daily as needed for muscle spasms cyclobenzaprine (FLEXERIL) 10 MG tablet Take 1 tablet by mouth 3 times daily as needed for Muscle spasms 06/05/2025 Discontinued (Stop Taking at Discharge) dabigatran etexilate 150 mg oral capsule (14 sources) Start: 10-09-20 14 take 1 capsule by mouth twice daily dabigatran etexilate (PRADAXA) 150 mg cap Indications: Atrial fibrillation (HCC) Take 1 capsule by mouth twice daily. 180 capsule 3 10/09/2014 Active Comment on above: Take 1 capsule by mo [facility] twice daily. finasteride 5 mg oral tablet (20 sources) 5-alpha Reductase Inhibitor Start: 06-02-20 25 5 mg, Oral, DAILY, First dose on 06/02/25 at 1415, Until Discontinued, Women should not handle crushed or broken finasteride tablets when they are or may potentially be , due to potential risk to the fetus. Start: 01-29-2025 take 1 tablet by alyssa once daily finasteride 5 mg Tab 5 mg = 1 tab(s), Oral, Daily, # 90 tab(s), Refills(s) 1, Pharmacy: [facility], 178.6, cm, 01/24/25 13:29:00 EDT, Height/Length Dosing, 82.7, kg, 01/24/25 13:29:00 EDT, Weight Dosing Start Date: 01/29/25 Status: Ordered Quantity: 90.0 Unit: tab(s) Repeat number: 2 Start: 10-09-2014 take 1 tablet by alyssa once daily finasteride 5 mg Tab 5 mg = 1 tab(s), Oral, Daily, # 90 tab(s), Refills(s) 1, Pharmacy: [id number], 178.6, cm, 11/01/24 9:21:00 EST, Height/Length Dosing, 81.3, kg, 11/01/24 9:21:00 EST, Weight Dosing Start Date: 11/08/24 Status: Ordered Comment on above: Take 1 tablet by alyssa once daily. gabapentin 300 mg oral capsule (20 sources) Anti-epileptic Agent Start: 06-02-2025 take 300 mg by mouth once daily 300 mg, Oral, DAILY, First dose on 06/02/25 at 1415, Until Discontinued Start: 04-25-2025 take 1 capsule by [facility] once daily gabapentin 300 mg Cap 300 mg = 1 cap(s), Oral, Daily, # 90 cap(s), Refills(s) 1, Pharmacy: [facility], 178.6, cm, 02/05/25 13:36:00 EDT, Height/Length Dosing, 82.2, kg, 02/05/25 13:36:00 EDT, Weight Dosing Start Date: 04/25/25 Status: Ordered Quantity: 90.0 Unit: cap(s) Repeat number: 2 Start: 01-07-2025 take 1 capsule by [facility] once daily gabapentin 300 mg Cap 300 mg = 1 cap(s), Oral, Daily, # 90 cap(s), Refills(s) 1, Pharmacy: [facility], 178.6, cm, 12/24/24 13:13:00 EST, Height/Length Dosing, 79, kg, 12/24/24 13:13:00 EST, Weight Dosing Start Date: 01/07/25 Status: Ordered Quantity: 90.0 Unit: cap(s) Repeat number: 2 Start: 12-01-2023 take 1 capsule by [facility] once daily gabapentin 300 mg Cap 300 mg = 1 cap(s), Oral, Daily, # 90 cap(s), Refills(s) 1, Pharmacy: [facility], 178, cm, 07/03/24 10:05:00 EDT, Height/Length Dosing, 80.8, kg, 07/03/24 10:05:00 EDT, Weight Dosing Start Date: 07/03/24 Status: Ordered glipiZIDE 5 mg oral tablet (1 source) Sulfonylurea Start: 06-03-2025 5 mg, Oral, DA RASTA BEFORE BREAKFAST, First dose on 06/03/25 at 0700, Until Discontinued, Substituted for glimepiride (AMARYL). insulin lispro 100 unt/ml injectable solution (1 source) Insulin Analog Start: 06-02-2025 0-4 Units, SubCUTAneous, 4 TIMES DAILY BEFORE MEALS & NIGHTLY, First dose on 06/02/25 at 1230, Until Discontinued, Corrective Low Dose Algorithm Glucose: Dose: 70-179 No Insulin 180-249 1 Unit 250-299 2 Units 300-349 3 Units Over 349 4 Units and notify physician Administer as soon as possible within 60 minutes of last blood glucose check levothyroxine sodium 0.05 mg oral tablet (20 sources) l-Thyroxine Start: 06-02-2025 take 25 ug by mouth once daily 25 mcg, Oral, DAILY, First dose on 06/02/25 at 1415, Until Discontinued, Tube feeding (TF) interaction, obtain physician order to manage, recommend holding TF for 30 minutes before and after dose. Start: 03-07-2025 take 1 tablet by alyssa th once daily levothyroxine 25 mcg (0.025 mg) Tab See Instructions, TAKE 1 TABLET BY MOUTH DAILY ON AN EMPTY STOMACH, # 90 tab(s), Refills(s) 1, Pharmacy: [id number], 178.6, cm, 02/05/25 13:36:00 EDT, Height/Length Dosing, 82.2, kg, 02/05/25 13:36:00 EDT, Weight Dosing Start Date: 03/07/25 Status: Ordered Quantity: 90.0 Unit: tab(s) Repeat number: 1 Start: 08-20-2024 Synthroid 25 m cg(0.025 mg) Tab See Instructions, TAKE 1 TABLET DAILY ON AN EMPTY STOMACH, # 3 tab(s), Refills(s) 0, Pharmacy: [facility] #[id number], 178, cm, 08/07/24 10:59:00 EDT, Height/Length Dosing, 78.2, kg, 08/07/24 10:59:00 EDT, Weight Dosing Start Date: 08/20/24 Status: Ordered Quantity: 3.0 Unit: tab(s) Repeat number: 1 Start: 02-13-2024 take 1 tablet by alyssa th once daily levothyroxine 25 mcg (0.025 mg) Tab 25 mcg = 1 tab(s), Oral, Daily, on an empty stomach, # 90 tab(s), Refills(s) 1, [facility], 178.2, cm, 02/02/24 10:29:00 EDT, Height/Length [...] empty stomach Orally Once a day Active 1 ml LORazepam 2 mg/ml injection (1 source) Benzodiazepine Start: 06-03-2025 End: 06-04-2025 1 mg, IntraVENous, EVERY 4 HOURS PRN, Starting on Tue06/03/25 at 1640, Until Tue06/04/25 at 1257, Agitation, Immediately prior to intravenous use, lorazepam Injection must be diluted with at least an equal volume of compatible solution (NS or D5W). meloxicam 7.5 mg oral tablet (20 sources) Nonsteroidal Anti-inflammatory Drug Start: 04-25-2025 take 1 tablet by mouth once daily meloxicam 7.5 mg Tab 7.5 mg = 1 tab(s), Oral, Daily, TAKE 1 TABLET DAILY, # 30 tab(s), Refills(s) 2, Pharmacy: [facility], 178.6, cm, 02/05/25 13:36:00 EDT, Height/Length Dosing, 82.2, kg, 02/05/25 13:36:00 EDT, Weight Dosing Start Date: 04/25/25 Status: Ordered Quantity: 30.0 Unit: tab(s) Repeat number: 3 Start: 01-07-2025 take 1 tablet by alyssa th once daily meloxicam 7.5 mg Tab 7.5 mg = 1 tab(s), Oral, Daily, TAKE 1 TABLET DAILY, # 30 tab(s), Refills(s) 2, Pharmacy: [facility], 178.6, cm, 12/24/24 13:13:00 EST, Height/Length Dosing, 79, kg, 12/24/24 13:13:00 EST, Weight Dosing Start Date: 01/07/25 Status: Ordered Quantity: 30.0 Unit: tab(s) Repeat number: 3 Start: 12-06-2024 take 1 tablet by alyssa th once daily meloxicam 7.5 mg Tab 7.5 mg = 1 tab(s), Oral, Daily, TAKE 1 TABLET DAILY, # 30 tab(s), Refills(s) 2, Pharmacy: [facility], 178.6, cm, 11/01/24 9:21:00 EST, Height/Length Dosing, 81.3, kg, 11/01/24 9:21:00 EST, Weight Dosing Start Date: 12/06/24 Status: Ordered Start: 12-01-2023 take 1 tablet by alyssa once daily as needed meloxicam 15 mg Tab 15 mg = 1 tab(s), Oral, Daily, as needed, Refills(s) 0 Start Date: 12/01/23 Status: Ordered pantoprazole 40 mg delayed release oral tablet (1 source) Proton Pump Inhibitor Start: 06-03-2025 40 mg, Oral, DAILY BEFORE BREAKFAST, First dose on 06/03/25 at 0700, Until Discontinued, Do not crush or break. Substituted for Omeprazole (PRILOSEC). polyethylene glycol [id number] [id number] mg powder for oral solution (1 source) Osmotic Laxative Start: 06-02-2025 17 g, Oral, D AILY PRN, Starting on 06/02/25 at 1205, Until Discontinued, Constipation, First line therapy for constipation pravastatin sodium 20 mg oral tablet (20 sources) HMG-CoA Reductase Inhibitor Start: 06-02-2025 take 40 mg by mouth once daily 40 mg, Oral, DAILY, First dose on 06/02/25 at 1415, Until Discontinued Start: 10-09-2014 take 1 tablet by alyssa th once daily pravastatin 40 mg Tab 40 mg = 1 tab(s), Oral, Daily, # 90 tab(s), Refills(s) 3, Pharmacy: [facility], 178, cm, 09/10/24 13:01:00 EDT, Height/Length Dosing, 80.1, kg, 09/10/24 13:01:00 EDT, Weight Dosing Start Date: 11/21/24 Status: Ordered Quantity: 90.0 Unit: tab(s) Repeat number: 4 pravastatin (Pra vachol) 20 MG tablet Active Comment on above: Take 1 tablet by daily at bedtime. 500 ml sodium chloride 30 mg/ml injection (20 sources) Start: 06-03-2025 End: 06-03-2025 40 mL/hr, IntraVENous, CONTINUOUS, Starting on Tue06/03/25 at 2100, Until Tue06/03/25 at 2259, For rates greater than 100 mL/hr, CENTRAL LINE/PICC LINE administration required. Goal serum Na+ = 120 to 124 Notify physician and HOLD infusion if sodium increases more than 4 mEq/L (4 mmol/L) over 2 hours OR 8-10 mEq/L (8-10 mmol/L) over 24 hours OR if serum Na+ goal is exceeded. Start: 06-03-2025 End: 06-05-2025 2 g, Oral, 3 TIMES DAILY, Fi rst dose (after last modification) on Tue06/03/25 at 1400, Until Discontinued Start: 06-02-2025 5-40 mL, Intra VENous, EVERY 12 HOURS SCHEDULED (2 times per [...] Midline or Central Line = 20 mL/lumen Start: 06-02-2025 End: 06-03-2025 1 g, Oral, 3 TIMES DAILY, Fi rst dose on Tue06/02/25 at 1445, Until Discontinued Start: 06-02-2025 take 2 spray(s) nasa l route every four hours 2 spray, Each Nostril, EVERY 4 HOURS, First dose (after last modification) on Tue06/02/25 at 1415, Until Discontinued Start: 06-02-2025 IntraVENous, a t 5-250 mL/hr, PRN, if patient receiving piggyback infusions and maintenance fluids are not ordered, Starting on 06/02/25 at 1205, For piggyback infusion, administer at same rate as piggyback for a total of 25 mL. Enter 25 mL into dose field and piggyback rate into rate field of order. If piggyback is infusing at a rate less than 100 mL/hr, enter 25 mL into dose field and 100 mL/hr into rate field of order. Start: 06-02-2025 take 10 mL intraveno usly once as needed 10 mL, IntraVENous, PRN, Starting on 06/02/25 at 1205, Until Discontinued, Line Care, After every IV line use Start: 05-14-2025 Sodium Chlorid e 1 g oral tablet See Instructions, Take 1g BID daily, # 180 tab(s), Refills(s) 0, Pharmacy: [facility] #[id number], 178.6, cm, 05/09/25 8:18:00 EDT, Height/Length Dosing, 80.6, kg, 05/09/25 8:18:00 EDT, Weight Dosing Start Date: 05/14/25 Status: Ordered Quantity: 180.0 Unit: tab(s) Repeat number: 1 Start: 02-06-2025 Sodium Chlorid e 1 g oral tablet See Instructions, Take 1g BID daily, # 60 tab(s), Refills(s) 3, Pharmacy: [facility]/pharmacy #[id number], 178.6, cm, 02/05/25 13:36:00 EDT, Height/Length Dosing, 82.2, kg, 02/05/25 13:36:00 EDT, Weight Dosing Start Date: 02/06/25 Status: Ordered Quantity: 60.0 Unit: tab(s) Repeat number: 4 Start: 01-24-2025 take 1 tablet by mouth twice d aily Sodium Chloride 1 g oral tablet See Instructions, 1 gram orally BID, # 180 tab(s), Refills(s) 0, [facility], 178.6, cm, 01/24/25 13:29:00 EDT, Height/Length Dosing, 82.7, kg, 01/24/25 13:29:00 EDT, Weight Dosing Start Date: 01/24/25 Status: Ordered Start: 02-24-2025 take 1 tablet by mouth once da rasta Sodium Chloride 1 g oral tablet See Instructions, 1 gram orally daily, # 90 tab(s), Refills(s) 0, [id number] 178.6, cm, 12/24/24 13:13:00 EST, Height/Length Dosing, 79, kg, 12/24/24 13:13:00 EST, Weight Dosing Start Date: 01/07/25 Status: Ordered Start: 12-26-2024 take 1 tablet by mouth once da ratsa Sodium Chloride 1 g oral tablet See Instructions, 1 gram orally daily, # 90 tab(s), Refills(s) 0, Pharmacy: [facility], 178.6, cm, 12/24/24 13:13:00 EST, Height/Length Dosing, 79, kg, 12/24/24 13:13:00 EST, Weight Dosing Start Date: 12/26/24 Status: Ordered Start: 12-17-2024 take 1 tablet by mouth once da rasta Sodium Chloride 1 g oral tablet See Instructions, 1 gram orally daily, # 90 tab(s), Refills(s) 0, Pharmacy: [facility], 178.6, cm, 12/17/24 15:05:00 EST, Height/Length Dosing, 78.5, kg, 12/17/24 15:05:00 EST, Weight Dosing Start Date: 12/17/24 Status: Ordered Start: 06-27-2024 take 1 tablet by mouth once da rasta Sodium Chloride 1 g oral tablet See Instructions, 1 gram orally daily, # 90 tab(s), Refills(s) 0, [id number] 178, cm, 06/11/24 12:53:00 EDT, Height/Length Dosing, 82, kg, 06/11/24 12:56:00 EDT, Weight Dosing Start Date: 06/27/24 Status: Ordered Start: 05-03-2024 take 1 tablet by mouth once da rasta Sodium Chloride 1 g oral tablet See Instructions, patient states Dr. Najera took this down to one tab once daily, Refills(s) 0 Start Date: 05/03/24 Status: Ordered Start: 04-05-2024 take 1 tablet by mouth twice d aily Sodium Chloride 1 g oral tablet See Instructions, TAKE 1 TABLET BY MOUTH TWICE DAY, # 90 tab(s), Refills(s) 2, Pharmacy: [facility] #[id number], 180.5, cm, 03/20/24 15:05:00 EDT, Height/Length Dosing, 82.5, kg, 03/20/24 15:05:00 EDT, Weight Dosing Start Date: 04/05/24 Status: Ordered Start: 12-29-2023 take 1 tablet by alyssa in the morning sodium chloride 1 g tablet Take 1 g by mouth in the morning and 1 g before bedtime. 12/29/2023 Active Start: 12-23-2023 take 1 tablet by mouth twice d aily Sodium Chloride 1 g oral tablet See Instructions, TAKE 1 TABLET BY MOUTH TWICE DAY, # 90 tab(s), Refills(s) 2, Pharmacy: [facility], 178.2, cm, 12/01/23 13:40:00 EST, Height/Length Dosing, 85.5, kg, 12/01/23 13:40:00 EST, Weight Dosing Start Date: 12/23/23 Status: Ordered End: 06-05-2025 take 1000 mg by mouth three times daily SODIUM CHLORIDE PO Take 1,000 mg by mouth 3 times daily 06/05/2025 Discontinued (Stop Taking at Discharge) tamsulosin hydrochloride 0.4 mg oral capsule (20 sources) alpha-Adrenergic Chema Start: 06-02-2025 take 0.4 mg by mouth once daily at mealtime 0.4 mg, Oral, DAILY, First dose on 06/02/25 at 1415, Until Discontinued, Do not crush or break. Give 30 minutes after a full meal to limit risk of orthostatic hypotension/falls. Start: 05-07-2025 take 1 capsule by mo ut once daily tamsulosin 0.4 mg Cap 0.4 mg = 1 cap(s), Oral, Daily, # 90 cap(s), Refills(s) 3, Pharmacy: [facility], 178.6, cm, 02/05/25 13:36:00 EDT, Height/Length Dosing, 82.2, kg, 02/05/25 13:36:00 EDT, Weight Dosing Start Date: 05/07/25 Status: Ordered Quantity: 90.0 Unit: cap(s) Repeat number: 4 Start: 10-14-2014 take 1 capsule by [facility] once daily tamsulosin 0.4 mg Cap 0.4 mg = 1 cap(s), Oral, Daily, # 90 cap(s), Refills(s) 1, Pharmacy: [facility], 178, cm, 09/10/24 13:01:00 EDT, Height/Length Dosing, 80.1, kg, 09/10/24 13:01:00 EDT, Weight Dosing Start Date: 10/22/24 Status: Ordered Quantity: 90.0 Unit: cap(s) Repeat number: 2 Comment on above: Take 1 capsule by [facility] daily at bedtime. tolvaptan (SAMSCA) pre-split tablet 7.5 mg (2 sources) Start: 06-05-2025 End: 06-05-2025 7.5 mg, Oral, ONCE, 1 dose, On Tue06/05/25 at 1115, Has the patient failed fluid restriction? Yes, Is the patient's serum sodium less than 125 mEq/L and plasma osmolality less than 285 mOsm/kg OR less marked hyponatremia that is symptomatic and resistant to fluid restriction? Yes, Does patient have hypovolemic hypotonic hyponatremia OR signs of dehydration? No, Is the patient anuric? No Start: 06-04-2025 End: 06-04-2025 7.5 mg, Oral, ONCE, 1 dose, On Tue06/04/25 at 1230, Has the patient failed fluid restriction? Yes, Is the patient's serum sodium less than 125 mEq/L and plasma osmolality less than 285 mOsm/kg OR less marked hyponatremia that is symptomatic and resistant to fluid restriction? Yes, Does patient have hypovolemic hypotonic hyponatremia OR signs of dehydration? No, Is the patient anuric? No ubidecarenone 100 mg / vitam in e 5 unt oral capsule (1 source) take 1 capsule by [facility] once daily coenzyme Q-10 100 MG capsule Take 1 capsule by mouth daily Suspended Problems Problem Classification Problem Date Documented Date Episodic/Chronic Abdominal hernia (11 sources) Inguinal hernia; Translations: [Unilateral inguinal hernia, without obstruction or gangrene, not specified as recurrent] Onset: Episodic Allergic reactions (1 source) Dermatitis, unspecified Episodic Cardiac dysrhythmias (20 sources) Atrial fibrillation; Translations: [Unspecified atrial fibrillation] Onset: 4 Chronic Coagulation and hemorrhagic disorders (2 sources) Hypercoagulability state; Translations: [Other thrombophilia] Onset: 5 06-02-2025 Chronic Coronary atherosclerosis and other heart disease (1 source) Coronary atherosclerosis; Translations: [Atherosclerotic heart disease of [place] coronary artery without angina pectoris] Onset: 4 Chronic Diabetes mellitus without complication (20 sources) Type 2 diabetes mellitus; Translations: [Type 2 diabetes mellitus without complications] Onset: 5 Chronic Disorders of lipid metabolism (19 sources) Hyperlipidemia; Translations: [Hyperlipidemia, unspecified] 03-02-2006 Chronic E Codes: Fall (6 sources) Fall in home; Translations: [Unspecified fall, initial encounter] Onset: 5 11-26-2024 Episodic E Codes: Fall (11 sources) Fall in home 03-20-2024 Essential hypertension (8 sources) Benign hypertension; Translations: [Essential (primary) hypertension] Onset: 5 11-26-2024 Chronic Fluid and electrolyte disorders (20 sources) Hypo-osmolality and hyponatremia; Translations: [Hyponatremia] Onset: 5 Episodic Hyperplasia of prostate (20 sources) Benign prostatic hyperplasia; Translations: [Benign prostatic hyperplasia without lower urinary tract symptoms] Onset: 3 Chronic Immunizations and screening for infectious disease (1 source) Encounter for immunization Episodic Influenza (1 source) Influenza due to other identified influenza virus with other respiratory manifestations Episodic Occlusion or stenosis of precerebral arteries (7 sources) Carotid artery occlusion; Translations: [Occlusion and stenosis of unspecified carotid artery] Onset: 5 11-26-2024 Chronic Open wounds of head; neck; and trunk (4 sources) Laceration of head 03-20-2024 Episodic Osteoarthritis (20 sources) Degenerative joint disease involving multiple joints; Translations: [Polyosteoarthritis, unspecified] Onset: 2 09-12-2012 Chronic Other aftercare (14 sources) Long-term current use of anticoagulant; Translations: [joint terminal attack controller (current) use of anticoagulants] Episodic Other aftercare (3 sources) skilled nursing (current) use of anticoagulants Episodic Other aftercare (1 source) Post-discharge follow-up 12-17-2024 Episodic Other aftercare (2 sources) Anticoagulant effect; Translations: [skilled nursing (current) use of anticoagulants] Onset: 5 06-02-2025 Episodic Other and unspecified benign neoplasm (17 sources) Melanocytic nevus of skin 03-08-2024 Episodic Other connective tissue disease (18 sources) Triggering of digit 02-02-2024 Episodic Other connective tissue disease (1 source) Acquired trigger finger of right little finger; Translations: [Trigger finger, right little finger] Onset: Episodic Other connective tissue disease (1 source) [...] Translations: [Unspecified hearing loss, unspecified ear] Onset: 5 05-03-2024 Chronic Other ear and sense organ disorders (1 source) Unspecified hearing loss, unspecified ear Chronic Other endocrine disorders (2 sources) Syndrome of inappropriate vasopressin secretion; Translations: [Syndrome of inappropriate secretion of antidiuretic hormone] Onset: 5 06-05-2025 Chronic Other injuries and conditions due to external causes (2 sources) Foreign body in right ear; Translations: [Foreign body in right ear, initial encounter] 11-26-2024 Episodic Other male genital disorders (11 sources) Impotence; Translations: [Male erectile dysfunction, unspecified] Onset: 5 02-02-2024 Chronic Other male genital disorders (19 sources) Erectile dysfunction co-occurrent and due to arterial insufficiency; Translations: [Erectile dysfunction due to arterial insufficiency] Onset: 5 05-03-2024 Chronic Other nervous system disorders (20 sources) Carpal tunnel syndrome; Translations: [Carpal tunnel syndrome, unspecified upper limb] Onset: 7 03-06-2008 Chronic Other nervous system disorders (1 source) Neuropathy; Translations: [Polyneuropathy, unspecified] Onset: 0 03-25-2010 Chronic Other nervous system disorders (1 source) Bilateral carpal tunnel syndrome; Translations: [Carpal tunnel syndrome, bilateral upper limbs] 09-28-2024 Chronic Other nervous system disorders (1 source) Carpal tunnel syndrome of left wrist; Translations: [Carpal tunnel syndrome, left upper limb] Onset: Chronic Other nervous system disorders (2 sources) Toxic metabolic encephalopathy; Translations: [Toxic metabolic encephalopathy] Onset: 5 06-04-2025 Episodic Other nutritional; endocrine; and metabolic disorders (20 sources) Overweight in adulthood with body mass index of 25 or more but less than 30; Translations: [Body mass index (BMI) 25.0-25.9, adult] Onset: 5 03-08-2024 Episodic Other nutritional; endocrine; and metabolic disorders (3 sources) Body mass index 25-29 - overweight 01-24-2025 Episodic Other nutritional; endocrine; and metabolic disorders (2 sources) H/O: hypothyroidism; Translations: [Personal history of other endocrine, nutritional and metabolic disease] Onset: 5 06-05-2025 Episodic Other screening for suspected conditions (not mental disorders or infectious disease) (7 sources) Encounter for screening for malignant neoplasm of prostate; Translations: [Melanocytic nevus of skin ] Onset: 5 Episodic Other upper respiratory disease (2 sources) Bleeding from nose; Translations: [Epistaxis] Onset: 5 06-02-2025 Episodic Otitis media and related conditions (5 sources) Serous otitis media 07-03-2024 Episodic Peripheral and visceral atherosclerosis (20 sources) Arteriosclerotic vascular disease; Translations: [Atherosclerotic heart disease of [place] coronary artery without angina pectoris] Onset: 5 12-01-2023 Chronic Skull and face fractures (2 sources) Closed fracture of nasal bones; Translations: [Fracture of nasal bones, initial encounter for closed fracture] Onset: 5 06-02-2025 Episodic Spondylosis; intervertebral disc disorders; other back problems (8 sources) Intervertebral disc disorder of cervical region with myelopathy; Translations: [Cervical disc disorder with myelopathy, unspecified cervical region] Onset: 1 11-09-2021 Chronic Spondylosis; intervertebral disc disorders; other back problems (16 sources) Spasm of back muscles; Translations: [Muscle spasm of back] Onset: 5 07-24-2024 Episodic Syncope (20 sources) Syncope and collapse; Translations: [Syncope] Onset: 4 Episodic Thyroid disorders (20 sources) Hypothyroidism; Translations: [Hypothyroidism, unspecified] Onset: 5 Chronic Unclassified (1 source) Encounter for screening for malignant neoplasm of prostate; Translations: [Encounter for screening for malignant neoplasm of prostate] Onset: 3 Unclassified (1 source) joint terminal attack controller (current) use of anticoagulants; Translations: [joint terminal attack controller (current) use of anticoagulants] Onset: 3 Unclassified (1 source) Body mass index 20-24 - normal 12-17-2024 Unclassified (6 sources) Non-smoker 12-17-2024 Results Test Name Value Interpretation Reference Range Facility [facility] 06-07-2025 Albumin [Mass/Vol] 4.1 g/dL Normal 3.3-5.0 [facility] Comment on above: Performed By: #### 2 [id number] #### [facility] [address] [place] [address] Albumin/Globulin [Mass ratio] 1.6 {ratio} Normal 1.1-2.2 [facility] Comment on above: Performed By: #### 2 [id number] #### [facility] [address] [place] [address] Alk Phos 86 Int._Unit/L Normal 21-98 [facility] Comment on above: Performed By: #### 2 [id number] #### [facility] [address] [place] [address] ALT 12 Int._Unit/L Normal 6-46 [facility] Comment on above: Performed By: #### 2 [id number] #### [facility] [address] [place] [address] Anion gap [Moles/Vol] 9 mmol/L Normal 6-16 [facility] Comment on above: Performed By: #### 2 [id number] #### [facility] [address] [place] [address] AST 24 Int._Unit/L Normal 5-43 [facility] Comment on above: Performed By: #### 2 [id number] #### [facility] [address] [place] [address] Bili Total 1.0 mg/dL Normal 0.0-1.1 [facility] Comment on above: Performed By: #### 2 [id number] #### [facility] [address] [place] [address] BUN/Creat Ratio 26 No Units High 10-20 [facility] Comment on above: Performed By: #### 2 [id number] #### [facility] [address] [place] [address] Calcium [Mass/Vol] 9.8 mg/dL Normal 8.9-11.1 [facility] Comment on above: Performed By: #### 2 [id number] #### [facility] [address] [place] [address] Chloride [Moles/Vol] 95 mmol/L Low 101-111 [facility] Comment on above: Performed By: #### 2 [id number] #### [facility] [address] [place] [address] CO2 [Moles/Vol] 27 mmol/L Normal 21-31 [facility] Comment on above: Performed By: #### 2 [id number] #### [facility] [address] [place] [address] Creatinine [Mass/Vol] 1.1 mg/dL Normal 0.5-1.3 [facility] Comment on above: Performed By: #### 2 [id number] #### [facility] [address] [place] [address] Globulin (S) [Mass/Vol] 2.6 g/dL Normal 1.4-4.0 [facility] Comment on above: Performed By: #### 2 [id number] #### [facility] [address] [place] [address] Glucose [Mass/Vol] 190 mg/dL Normal 55-199 [facility] Comment on above: Performed By: #### 2 [id number] #### [facility] [address] [place] [address] Potassium [Moles/Vol] 4.2 mmol/L Normal 3.5-5.3 [facility] Comment on above: Performed By: #### 2 [id number] #### [facility] [address] [place] [address] Protein [Mass/Vol] 6.7 g/dL Normal 6.0-7.8 [facility] Comment on above: Performed By: #### 2 [id number] #### [facility] [address] [place] [address] Sodium [Moles/Vol] 127 mmol/L Low 135-145 [facility] Comment on above: Performed By: #### 2 [id number] #### [facility] [address] [place] [address] Urea nitrogen [Mass/Vol] 29 mg/dL High 5-21 [facility] Comment on above: Performed By: #### 2 [id number] #### [facility] [address] [place] [address] Family Medicine Office/Clini c Noteon 06-07-2025 Family Medicine Office/Clinic Note Family Medicine Office/Clinic Note Chief Complaint Discuss Medications The patient presents for a follow-up after hospitalization due to a nasal fracture. HPI Staff Former Dr Garcia pt. Pt presents today to follow up to hospitalization in [place]. Fell and hit his nose. Went to [facility] ER due to excessive bleeding. They packed it and DC'd pt. Upon arrival home, nose started bleeding again. Pt went back to ER, solo. He was then transferred to [facility] in [place] where they admitted him for 3-4days. Sodium was dc'd. And pt was started on Lisinopril & Keflex & Ure-NA History of Present Illness 85-year-old male presents with his following a recent hospital stay for a nasal fracture. The incident occurred when the patient fell while attempting to lacey his stomach, resulting in a nasal fracture and subsequent bleeding. He was initially treated at [facility] with nasal packing and later transferred to [facility] for further management. During hospitalization, the patient was diagnosed with a sinus infection, for which antibiotics were prescribed. Additionally, he experienced hyponatremia, with sodium levels dropping to 113 mmol/L, necessitating treatment to stabilize his electrolytes. His called the hospital on the evening of 06/05/2025 and stated despite his confusion, she would be taking him home that night. There is some confusion regarding what medications the patient should be taking- this provider explained the current medications from the hospital should be continued until his medical record can be reviewed in a thorough manner since this is a first visit with this provider. The patient has a history of managing his medications independently and attends regular blood monitoring appointments. He uses a rolling walker at home for mobility support. Review of Systems - Musculoskeletal: Reports recent fall resulting in nasal fracture - Neurological: Denies dizziness or balance issues - General: Reports feeling run down Physical Exam Vitals & Measurements T: 36.9 ???C(Oral) HR: 80(Peripheral) RR: 18 BP: 110/74 SpO2: 95% HT: 70 in HT: 178.6 cm WT: 163.803 lb WT: 74.3 kg BMI: 23.29 General: alert, no acute distress Cardiovascular: regular rate and rhythm, normal peripheral perfusion Respiratory: Lungs CTA, respirations non labored Extremities: no deformity, no trauma Neurological: oriented x 4, LOC appropriate for age, CN II-XII intact, motor strength equal & normal bilaterally, sensation equal & normal bilaterally, speech normal Assessment/Plan 1. Hyponatremia (E87.1: Hypo-osmolality and hyponatremia) - Reviewed documents from [facility] & [facility] in [place] - Sodium level on discharge 127 - Awaiting laboratory results - f/u in one week Ordered: Non-Formulary Medication, Ure-Na, See Instructions, 15 packet(s), 0, Natural Lemon [place] flavor, [id number], Supply, 178.6, cm, 06/07/25 10:56:00 EDT, Height/Length Dosing, 74.3, kg, 06/07/25 10:56:00 EDT, Weight Dosing Comprehensive Metabolic Panel 2. Hospital discharge follow-up (Z09: Encounter for follow-up examination after completed treatment for conditions other than malignant neoplasm) Nasal Fracture - Follow-up care to monitor healing and ensure no complications arise from the fracture. - Advised to avoid activities that may risk further injury. - Complete course of ATB's as directed at discharge - Patient should f/u with neprology as stated in discharge papers 3. BMI 23.0-23.9, adult (Z68.23: Body mass index [BMI] 23.0-23.9, adult) BMI 23.29 Ordered: Non-Formulary Medication, Ure-Na, See Instructions, 15 packet(s), 0, Natural Lemon [place] flavor, [id number], Supply, 178.6, cm, 06/07/25 10:56:00 EDT, Height/Length Dosing, 74.3, kg, 06/07/25 10:56:00 EDT, Weight Dosing 4. Nonsmoker (Z78.9: Other specified health status) Encouraged to continue as a non-smoker Ordered: Non-Formulary Medication, Ure-Na, See Instructions, 15 packet(s), 0, Natural Lemon [place] flavor, [id number], Supply, 178.6, cm, 06/07/25 10:56:00 EDT, Height/Length Dosing, 74.3, kg, 06/07/25 10:56:00 EDT, Weight Dosing total time spent preparing the chart, conducting of the encounter with the patient and family and time spent documenting, reviewing, and ordering tests was 40 minutes. Follow-up With When Contact Information YANIQUE CHAMBERS CNP, FAM In 6 days 06/13/2025 EDT [address] [place] [address] [facility] (1) Additional Instructions: Patient Education Hyponatremia, [id number] Problem List/Past Medical History Ongoing ASCVD (arteriosclerotic cardiovascular disease) Back spasm BMI 23.0-23.9, adult BMI 25.0-25.9,adult Carpal tunnel syndrome, left DM type 2 causing vascular disease Encounter for surveillance of abnormal nevi Erectile dysfunction due to arterial insufficiency Hard of hearing Hyperlipidemia Hyponatremia Hypothyroid Longstanding persistent atrial fibrillation Non (more content not included)... Normal [facility] Comment on above: Result Comment: Elec tronically Signed By: YANIQUE CHAMBERS CNP\Date and Time Signed: 06/07/25 14:35 EDT eGFRon 06-07-2025 eGFR 67 mL/min/1.73 m2 Normal >=59 [facility] Comment on above: Performed By: #### 1 [id number] #### [facility] [address] [place] [address] Basic Metabolic Panelon 05-15 Anion gap [Moles/Vol] 12 mmol/L 9 - 16 mmol/L [facility] Calcium [Mass/Vol] 9.2 mg/dL 8.6 - 10. 4 mg/dL [facility] Chloride [Moles/Vol] 95 mmol/L Low 98 - 10 7 mmol/L [facility] CO2 [Moles/Vol] 19 mmol/L Low 20 - 31 mmol/L [facility] Creatinine [Mass/Vol] 0.8 mg/dL 0.7 - 1.2 mg/dL [facility] Est, Glom Filt Rate 88 - PINF [facility] Comment on above: These results are not intended for use [...] following therapy that affects renal tubular secretion. Glucose [Mass/Vol] 112 mg/dL High 74 - 99 mg/dL [facility] Interpretation and review of laboratory results Abnormal [facility] Potassium [Moles/Vol] 4.5 mmol/L 3.7 - 5.3 mmol/L [facility] Comment on above: Specimen hemolysis h as exceeded the interference as defined by Sindy. Value may be falsely increased. Suggest recollection if clinically indicated. Sodium [Moles/Vol] 126 mmol/L Low 136 - 145 mmol/L [facility] Urea nitrogen [Mass/Vol] 13 mg/dL 8 - 23 mg/dL [facility] [place] Basic Metabolic Profon 06-05 Anion gap [Moles/Vol] 12 mmol/L Normal 9-16 [facility] Comment on above: Performed By: #### P T, BMP #### [address] [address] Assistant Auditor: Pankaj Cordoba MD Calcium [Mass/Vol] 9.2 mg/dL Normal 8.6-10.4 [facility] Comment on above: Performed By: #### P T, BMP #### [facility] [address] [place] [address] Assistant Auditor: Pankaj Cordoba MD Chloride [Moles/Vol] 95 mmol/L Low 98-107 [facility] Comment on above: Performed By: #### P T, BMP #### [facility] [address] [place] [address] Assistant Auditor: Pankaj Cordoba MD CO2 [Moles/Vol] 19 mmol/L Low 20-31 [facility] Comment on above: Performed By: #### P T, BMP #### [facility] [address] [place] [address] Assistant Auditor: Pankaj Cordoba MD Creatinine [Mass/Vol] 0.8 mg/dL Normal 0.7-1.2 [facility] Comment on above: Performed By: #### P T, BMP #### [facility] [address] [place] [address] Assistant Auditor: Pankaj Cordoba MD GFR/1.73 sq M.predicted among non-blacks MDRD (S/P/Bld) [Vol rate/Area] 88 mL/min/{1.73_m2} Normal >60 [facility] Comment on above: Result Comment: These results are not intended for [...] following therapy that affects renal tubular secretion. Performed By: #### P T, BMP #### [facility] [address] [place] [address] Assistant Auditor: Pankaj Cordoba MD Glucose [Mass/Vol] 112 mg/dL High 74-99 [facility] Comment on above: Performed By: #### P T, BMP #### [address] [address] Assistant Auditor: Pankaj Cordoba MD Potassium [Moles/Vol] 4.5 mmol/L Normal 3.7-5.3 [facility] Comment on above: Result Comment: Spec imen hemolysis has exceeded the interference as defined by Sindy. Value may be falsely increased. Suggest recollection if clinically indicated. Performed By: #### P T, BMP #### [address] [address] Assistant Auditor: Pankaj Cordoba MD Sodium [Moles/Vol] 126 mmol/L Low 136-145 [facility] Comment on above: Performed By: #### P T, BMP #### [address] [address] Assistant Auditor: Pankaj Cordoba MD Urea nitrogen [Mass/Vol] 13 mg/dL Normal 8-23 [facility] Comment on above: Performed By: #### P T, BMP #### [address] [address] Assistant Auditor: Pankaj Cordoba MD Electrolyte Panelon 06-05-20 Anion gap [Moles/Vol] 16 mmol/L 9 - 16 mmol/L [facility] Chloride [Moles/Vol] 92 mmol/L Low 98 - 10 7 mmol/L [facility] CO2 [Moles/Vol] 19 mmol/L Low 20 - 31 mmol/L [facility] Interpretation and review of laboratory results Abnormal [facility] Potassium [Moles/Vol] 4.4 mmol/L 3.7 - 5.3 mmol/L [facility] Comment on above: Specimen hemolysis h as exceeded the interference as defined by Sindy. Value may be falsely increased. Suggest recollection if clinically indicated. Sodium [Moles/Vol] 127 mmol/L Low 136 - 145 mmol/L [facility] Electrolyteson 06-05-2025 Anion gap [Moles/Vol] 16 mmol/L Normal 9-16 [facility] Comment on above: Performed By: #### L YTE ####[facility] [address] [place] [address] Lab Director: Pankaj Cordoba MD Chloride [Moles/Vol] 92 mmol/L Low 98-107 [facility] Comment on above: Performed By: #### L YTE ####[facility] [address] [place] [address] Lab Director: Pankaj Cordoba MD CO2 [Moles/Vol] 19 mmol/L Low 20-31 [facility] Comment on above: Performed By: #### L YTE ####[facility] [address] [place] [address] Lab Director: Pankaj Cordoba MD Potassium [Moles/Vol] 4.4 mmol/L Normal 3.7-5.3 [facility] Comment on above: Result Comment: Spec imen hemolysis has exceeded the interference as defined by Sindy. Value may be falsely increased. Suggest recollection if clinically indicated. Performed By: #### L YTE ####[facility] [address] [place] [address] Lab Director: Pankaj Cordoba MD Sodium [Moles/Vol] 127 mmol/L Low 136-145 [facility] Comment on above: Performed By: #### L YTE ####[facility] [address] [place] [address] Lab Director: Pankaj Cordoba MD Glucose,Whole Bloodon 2024 Glucose [Mass/Vol] 145 mg/dL High 75-110 [facility] Glucose [Mass/Vol] 108 mg/dL Normal 75-110 [facility] POC Glucose Fingerstickon Glucose [Mass/Vol] 145 mg/dL High 75 - 110 mg/dL [facility] Interpretation and review of laboratory results Abnormal [facility] Glucose [Mass/Vol] 108 mg/dL 75 - 110 mg/dL [facility] PTon 06-05-2025 INR Coag (PPP) [Relative time] 1.9 {INR} Normal [facility] Comment on above: Result Comment: Therapeutic Range: Moderate Anticoagulant Intensity: INR = 2.0-3.0 High Anticoagulant Intensity: INR = 2.5-3.5 Performed By: #### P T, BMP #### [facility] [address] [place], [place] [id number] Assistant Auditor: Pankaj Cordoba MD PT Coag (PPP) [Time] 22.4 s High 11.7-14.9 [facility] Comment on above: Performed By: #### P T, BMP #### [facility] [address] [place], [place] [id number] Assistant Auditor: Pankaj Cordoba MD Protime-INRon 06-05-2025 INR Coag (PPP) [Relative time] 1.9 {INR} [facility] Comment on above: Therapeutic Range: Moderate Anticoagulant Intensity: INR = 2.0-3.0 High Anticoagulant Intensity: INR = 2.5-3.5 Interpretation and review of laboratory results Abnormal [facility] PT Coag (PPP) [Time] 22.4 s High [facility] Arterial Bld Gas,POCon 06-04 HCO3 (Bld) [Moles/Vol] 24.6 mmol/L Normal 21.0-28.0 [facility] O2 Device Room Air Normal [facility] Oxygen saturation in Blood 97.2 % Normal 94.0-98.0 [facility] pCO2, Arterial 38.6 mm Hg Normal 35.0-48.0 [facility] pH, Arterial 7.412 Normal 7.350-7.450 [facility] pO2, Arterial 91.7 mm Hg Normal 83.0-108.0 [facility] Positive Base Excess (calc) 0.1 mmol/L Normal 0.0-3.0 [facility] Site Drawn Right Radial Artery Normal [facility] Arterial Blood Gas, POCon HCO3 (Bld) [Moles/Vol] 24.6 mmol/L 21.0 - 28.0 mmol/L [facility] [employer] O2 Delivery Device Room Air [facility] [employer] Oxygen saturation in Blood 97.2 % 94.0 - 98.0 % [facility] [employer] POC pCO2 38.6 [facility] [employer] POC pH 7.412 7.350 - 7.450 [facility] [employer] POC PO2 91.7 [facility] Positive Base Excess, Art 0.1 mmol/L 0.0 - 3.0 mmol/L [facility] [employer] Sample Site Right Radial Artery [facility] [employer] BUN, POCon 06-04-2025 Urea nitrogen [Mass/Vol] 11 mg/dL Normal 8-26 [facility] Basic Metab w/rfx MGon 06-04 Anion gap [Moles/Vol] 10 mmol/L Normal 9-16 [facility] Comment on above: Performed By: #### B MPX ####[employer] [address] [place], [place] [phone] Lab Director: Pankaj Cordoba MD Calcium [Mass/Vol] 8.6 mg/dL Normal 8.6-10.4 [facility] Comment on above: Performed By: #### B MPX ####[employer] [address] [place], [place] [phone] Lab Director: Pankaj Cordoba MD Chloride [Moles/Vol] 87 mmol/L Low 98-107 [facility] Comment on above: Performed By: #### B MPX ####[facility] [address] [place] [address] Lab Director: Pankaj Cordoba MD CO2 [Moles/Vol] 21 mmol/L Normal 20-31 [facility] Comment on above: Performed By: #### B MPX ####[facility] [address] [place], [place] [address])[phone] Director: Pankaj Cordoba MD Creatinine [Mass/Vol] 0.7 mg/dL Normal 0.7-1.2 [facility] Comment on above: Performed By: #### B MPX ####[address] [address])[phone] Director: Pankaj Cordoba MD GFR/1.73 sq M.predicted among non-blacks MDRD (S/P/Bld) [Vol rate/Area] mL/min/{1.73_m2} Normal >60 [facility] Comment on above: Result Comment: These results are not intended for [...] following therapy that affects renal tubular secretion. Performed By: #### B MPX ####[facility] [address] [place], [place] [address])[phone] Director: Pankaj Cordoba MD Glucose [Mass/Vol] 107 mg/dL High 74-99 [facility] Comment on above: Performed By: #### B MPX ####[facility] [address] [place] [address] Lab Director: Pankaj Cordoba MD Potassium [Moles/Vol] 4.8 mmol/L Normal 3.7-5.3 [facility] Comment on above: Result Comment: Spec imen hemolysis has exceeded the interference as defined by Sindy. Value may be falsely increased. Suggest recollection if clinically indicated. Performed By: #### B MPX ####[facility] [address] [place], [place] [phone] Director: Pankaj Cordoba MD Sodium [Moles/Vol] 118 mmol/L Critically low 136-145 [facility] Comment on above: Performed By: #### B MPX ####[facility] [address] [place] [address] [phone] Director: Pankaj Cordoba MD Urea nitrogen [Mass/Vol] 11 mg/dL Normal 8-23 [facility] Comment on above: Performed By: #### B MPX ####[address] [phone] Director: Pankaj Cordoba MD Anion gap [Moles/Vol] 12 mmol/L Normal 9-16 [facility] Comment on above: Performed By: #### B MPX #### [address] [address] Assistant Auditor: Pankaj Cordoba MD Calcium [Mass/Vol] 8.8 mg/dL Normal 8.6-10.4 [facility] Comment on above: Performed By: #### B MPX #### [facility] [address] [place] [address] Assistant Auditor: Pankaj Cordoba MD Chloride [Moles/Vol] 88 mmol/L Low 98-107 [facility] Comment on above: Performed By: #### B MPX #### [facility] [address] [place] [address] Assistant Auditor: Pankaj Cordoba MD CO2 [Moles/Vol] 19 mmol/L Low 20-31 [facility] Comment on above: Performed By: #### B MPX #### [address] [address] Assistant Auditor: Pankaj Cordoba MD Creatinine [Mass/Vol] 0.6 mg/dL Low 0.7-1.2 [facility] Comment on above: Performed By: #### B MPX #### [address] [address] Assistant Auditor: Pankaj Cordoba MD GFR/1.73 sq M.predicted among non-blacks MDRD (S/P/Bld) [Vol rate/Area] mL/min/{1.73_m2} Normal >60 [facility] Comment on above: Result Comment: These results are not intended for [...] following therapy that affects renal tubular secretion. Performed By: #### B MPX #### [address] [address] Assistant Auditor: Pankaj Cordoba MD Glucose [Mass/Vol] 86 mg/dL Normal 74-99 [facility] Comment on above: Performed By: #### B MPX #### [address] [address] Assistant Auditor: Pankaj Cordoba MD Potassium [Moles/Vol] 4.6 mmol/L Normal 3.7-5.3 [facility] Comment on above: Result Comment: Spec imen hemolysis has exceeded the interference as defined by Sindy. Value may be falsely increased. Suggest recollection if clinically indicated. Performed By: #### B MPX #### [address] [address] Assistant Auditor: Pankaj Cordoba MD Sodium [Moles/Vol] 119 mmol/L Critically low 136-145 [facility] Comment on above: Performed By: #### B MPX #### [facility] [address] [place] [address] Assistant Auditor: Pankaj Cordoba MD Urea nitrogen [Mass/Vol] 11 mg/dL Normal 8-23 [facility] Comment on above: Performed By: #### B MPX #### [facility] [address] [place] [address] Assistant Auditor: Pankaj Cordoba MD Anion gap [Moles/Vol] 12 mmol/L Normal 9-16 [facility] Comment on above: Performed By: #### B MPX ####[facility] [address] [place], [place] [phone] Director: Pankaj Cordoba MD Calcium [Mass/Vol] 8.7 mg/dL Normal 8.6-10.4 [facility] Comment on above: Performed By: #### B MPX ####[facility] [address] [place], [place] [phone] Director: Pankaj Cordoba MD Chloride [Moles/Vol] 88 mmol/L Low 98-107 [facility] Comment on above: Performed By: #### B MPX ####[facility] [address] [place], [place] [phone] Director: Pankaj Cordoba MD CO2 [Moles/Vol] 19 mmol/L Low 20-31 [facility] Comment on above: Performed By: #### B MPX ####[facility] [address] [place], [place] [phone] Director: Pankaj Cordoba MD Creatinine [Mass/Vol] 0.6 mg/dL Low 0.7-1.2 [facility] Comment on above: Performed By: #### B MPX ####[facility] [address] [place], [place] [phone] Director: Pankaj Cordoba MD GFR/1.73 sq M.predicted among non-blacks MDRD (S/P/Bld) [Vol rate/Area] mL/min/{1.73_m2} Normal >60 [facility] Comment on above: Result Comment: These results are not intended for [...] following therapy that affects renal tubular secretion. Performed By: #### B MPX ####[address] [address])[phone] Director: Pankaj Cordoba MD Glucose [Mass/Vol] 81 mg/dL Normal 74-99 [facility] Comment on above: Performed By: #### B MPX ####[place], [place] [address])[phone] Director: Pankaj Cordoba MD Potassium [Moles/Vol] 4.1 mmol/L Normal 3.7-5.3 [facility] Comment on above: Result Comment: Spec imen hemolysis has exceeded the interference as defined by Sindy. Value may be falsely increased. Suggest recollection if clinically indicated. Performed By: #### B MPX ####[address] [address] Lab Director: Pankaj Cordoba MD Sodium [Moles/Vol] 119 mmol/L Critically low 136-145 [facility] Comment on above: Performed By: #### B MPX ####[facility] [address] [place] [address] Lab Director: Pankaj Cordoba MD Urea nitrogen [Mass/Vol] 11 mg/dL Normal 8-23 [facility] Comment on above: Performed By: #### B MPX ####[address] [address] Lab Director: Pankaj Cordoba MD Anion gap [Moles/Vol] 11 mmol/L Normal 9-16 [facility] Comment on above: Performed By: #### O SMO #### [address] [address] Assistant Auditor: Pankaj Cordoba MD Calcium [Mass/Vol] 9.0 mg/dL Normal 8.6-10.4 [facility] Comment on above: Performed By: #### O SMO #### [address] [address] Assistant Auditor: Pankaj Cordoba MD Chloride [Moles/Vol] 88 mmol/L Low 98-107 [facility] Comment on above: Performed By: #### O SMO #### [address] [address] Assistant Auditor: Pankaj Cordoba MD CO2 [Moles/Vol] 21 mmol/L Normal 20-31 [facility] Comment on above: Performed By: #### O SMO #### [address] [address] Assistant Auditor: Pankaj Cordoba MD Creatinine [Mass/Vol] 0.6 mg/dL Low 0.7-1.2 [facility] Comment on above: Performed By: #### O SMO #### [address] [address] Assistant Auditor: Pankaj Cordoba MD GFR/1.73 sq M.predicted among non-blacks MDRD (S/P/Bld) [Vol rate/Area] mL/min/{1.73_m2} Normal >60 [facility] Comment on above: Result Comment: These results are not intended for [...] following therapy that affects renal tubular secretion. Performed By: #### O SMO #### [facility] [address] [place] [address] Assistant Auditor: Pankaj Cordoba MD Glucose [Mass/Vol] 75 mg/dL Normal 74-99 [facility] Comment on above: Performed By: #### O SMO #### [address] [address] Assistant Auditor: Pankaj Cordoba MD Potassium [Moles/Vol] 4.3 mmol/L Normal 3.7-5.3 [facility] Comment on above: Performed By: #### O SMO #### [address] [address] Assistant Auditor: Pankaj Cordoba MD Sodium [Moles/Vol] 120 mmol/L Low 136-145 [facility] Comment on above: Performed By: #### O SMO #### [address] [address] Assistant Auditor: Pankaj Cordoba MD Urea nitrogen [Mass/Vol] 11 mg/dL Normal 8-23 [facility] Comment on above: Performed By: #### O SMO #### [address] [address] Assistant Auditor: Pankaj Cordoba MD Anion gap [Moles/Vol] 14 mmol/L Normal 9-16 [facility] Comment on above: Performed By: #### B MPX ####[address] [address])[phone] Director: Pankaj Cordoba MD Calcium [Mass/Vol] 8.5 mg/dL Low 8.6-10.4 [facility] Comment on above: Performed By: #### B MPX ####[address] [address] Lab Director: Pankaj Cordoba MD Chloride [Moles/Vol] 89 mmol/L Low 98-107 [facility] Comment on above: Performed By: #### B MPX ####[facility] [address] [place], [place] [phone] Director: Pankaj Cordoba MD CO2 [Moles/Vol] 17 mmol/L Low 20-31 [facility] Comment on above: Performed By: #### B MPX ####[facility] [address] [place], [place] [phone] Director: Pankaj Cordoba MD Creatinine [Mass/Vol] 0.6 mg/dL Low 0.7-1.2 [facility] Comment on above: Performed By: #### B MPX ####[address] [address])[phone] Director: Pankaj Cordoba MD GFR/1.73 sq M.predicted among non-blacks MDRD (S/P/Bld) [Vol rate/Area] mL/min/{1.73_m2} Normal >60 [facility] Comment on above: Result Comment: These results are not intended for [...] following therapy that affects renal tubular secretion. Performed By: #### B MPX ####[facility] [address] [place], [place] [phone] Director: Pankaj Cordoba MD Glucose [Mass/Vol] 76 mg/dL Normal 74-99 [facility] Comment on above: Performed By: #### B MPX ####[facility] [address] [place], [place] [phone] Director: Pankaj Cordoba MD Potassium [Moles/Vol] 4.4 mmol/L Normal 3.7-5.3 [facility] Comment on above: Result Comment: Spec imen hemolysis has exceeded the interference as defined by Sindy. Value may be falsely increased. Suggest recollection if clinically indicated. Performed By: #### B MPX ####[facility] [address] [place], [place] [phone] Director: Pankaj Cordoba MD Sodium [Moles/Vol] 120 mmol/L Low 136-145 [facility] Comment on above: Performed By: #### B MPX ####[facility] [address] [place], [place] [address])[phone] Director: Pankaj Cordoba MD Urea nitrogen [Mass/Vol] 11 mg/dL Normal 8-23 [facility] Comment on above: Performed By: #### B MPX ####[facility] [address] [place] [address])[phone] Director: Pankaj Cordoba MD Anion gap [Moles/Vol] 15 mmol/L Normal 9-16 [facility] Comment on above: Performed By: #### B MPX ####[facility] [address] [place], [place] [phone] Director: Pankaj Cordoba MD Calcium [Mass/Vol] 8.6 mg/dL Normal 8.6-10.4 [facility] Comment on above: Performed By: #### B MPX ####[facility] [address] [place], [place] [phone] Director: Pankaj Cordoba MD Chloride [Moles/Vol] 86 mmol/L Low 98-107 [facility] Comment on above: Performed By: #### B MPX ####[facility] [address] [place], [place] [phone] Director: Pankaj Cordoba MD CO2 [Moles/Vol] 16 mmol/L Low 20-31 [facility] Comment on above: Performed By: #### B MPX ####[facility] [address] [place] [address] Lab Director: Pankaj Cordoba MD Creatinine [Mass/Vol] 0.7 mg/dL Normal 0.7-1.2 [facility] Comment on above: Performed By: #### B MPX ####[address] [address] Lab Director: Pankaj Cordoba MD GFR/1.73 sq M.predicted among non-blacks MDRD (S/P/Bld) [Vol rate/Area] mL/min/{1.73_m2} Normal >60 [facility] Comment on above: Result Comment: These results are not intended for [...] following therapy that affects renal tubular secretion. Performed By: #### B MPX ####[address] [address])[phone] Director: Pankaj Cordoba MD Glucose [Mass/Vol] 90 mg/dL Normal 74-99 [facility] Comment on above: Performed By: #### B MPX ####[facility] [address] [place] [address] Lab Director: Pankaj Cordoba MD Potassium [Moles/Vol] 4.1 mmol/L Normal 3.7-5.3 [facility] Comment on above: Result Comment: Spec imen hemolysis has exceeded the interference as defined by Sindy. Value may be falsely increased. Suggest recollection if clinically indicated. Performed By: #### B MPX ####[address] [address] Lab Director: Pankaj Cordoba MD Sodium [Moles/Vol] 117 mmol/L Critically low 136-145 [facility] Comment on above: Performed By: #### B MPX ####[employer] [address] [place], [place] 1983[address] lab Director: Pankaj Cordoba MD Urea nitrogen [Mass/Vol] 12 mg/dL Normal 8-23 [facility] Comment on above: Performed By: #### B MPX ####[employer] [address] [place] [address] lab Director: Pankaj Cordoba MD Basic Metabolic Panel w/ Ref maura to MGon 06-04-2025 Anion gap [Moles/Vol] 10 mmol/L 9 - 16 mmol/L [facility] Calcium [Mass/Vol] 8.6 mg/dL 8.6 - 10. 4 mg/dL [facility] Chloride [Moles/Vol] 87 mmol/L Low 98 - 10 7 mmol/L [facility] CO2 [Moles/Vol] 21 mmol/L 20 - 31 mmol/L [facility] Creatinine [Mass/Vol] 0.7 mg/dL 0.7 - 1.2 mg/dL [facility] [place], [place] Michele Rate - PINF [facility] [employer] Comment on above: These results are not intended for use [...] following therapy that affects renal tubular secretion. Glucose [Mass/Vol] 107 mg/dL High 74 - 99 mg/dL [facility] [place] Interpretation and review of laboratory results Abnormal [facility] [place] Potassium [Moles/Vol] 4.8 mmol/L 3.7 - 5.3 mmol/L [facility] [place] Comment on above: Specimen hemolysis h as exceeded the interference as defined by Sindy. Value may be falsely increased. Suggest recollection if clinically indicated. Sodium [Moles/Vol] 118 mmol/L Critically low 136 - 1 45 mmol/L [facility] Urea nitrogen [Mass/Vol] 11 mg/dL 8 - 23 mg/dL [facility] Anion gap [Moles/Vol] 12 mmol/L 9 - 16 mmol/L [facility] Calcium [Mass/Vol] 8.8 mg/dL 8.6 - 10. 4 mg/dL [facility] Chloride [Moles/Vol] 88 mmol/L Low 98 - 10 7 mmol/L [facility] CO2 [Moles/Vol] 19 mmol/L Low 20 - 31 mmol/L [facility] Creatinine [Mass/Vol] 0.6 mg/dL Low 0.7 - 1.2 mg/dL [facility] Est, Jesu Michele Rate - PINF [facility] Comment on above: These results are not intended for use [...] following therapy that affects renal tubular secretion. Glucose [Mass/Vol] 86 mg/dL 74 - 99 mg/dL [facility] Interpretation and review of laboratory results Abnormal [facility] Potassium [Moles/Vol] 4.6 mmol/L 3.7 - 5.3 mmol/L [facility] Comment on above: Specimen hemolysis h as exceeded the interference as defined by Sindy. Value may be falsely increased. Suggest recollection if clinically indicated. Sodium [Moles/Vol] 119 mmol/L Critically low 136 - 1 45 mmol/L [facility] Urea nitrogen [Mass/Vol] 11 mg/dL 8 - 23 mg/dL [facility] Anion gap [Moles/Vol] 12 mmol/L 9 - 16 mmol/L [facility] Calcium [Mass/Vol] 8.7 mg/dL 8.6 - 10. 4 mg/dL [facility] Chloride [Moles/Vol] 88 mmol/L Low 98 - 10 7 mmol/L [facility] CO2 [Moles/Vol] 19 mmol/L Low 20 - 31 mmol/L [facility] Creatinine [Mass/Vol] 0.6 mg/dL Low 0.7 - 1.2 mg/dL [facility] Est, Glozoe Mejiat Rate - PINF [facility] Comment on above: These results are not intended for use [...] following therapy that affects renal tubular secretion. Glucose [Mass/Vol] 81 mg/dL 74 - 99 mg/dL [facility] Interpretation and review of laboratory results Abnormal [facility] Potassium [Moles/Vol] 4.1 mmol/L 3.7 - 5.3 mmol/L [facility] Comment on above: Specimen hemolysis h as exceeded the interference as defined by Sindy. Value may be falsely increased. Suggest recollection if clinically indicated. Sodium [Moles/Vol] 119 mmol/L Critically low 136 - 1 45 mmol/L [facility] Urea nitrogen [Mass/Vol] 11 mg/dL 8 - 23 mg/dL [facility] Anion gap [Moles/Vol] 11 mmol/L 9 - 16 mmol/L [facility] Calcium [Mass/Vol] 9 mg/dL 8.6 - 10. 4 mg/dL [facility] Chloride [Moles/Vol] 88 mmol/L Low 98 - 10 7 mmol/L [facility] CO2 [Moles/Vol] 21 mmol/L 20 - 31 mmol/L [facility] Creatinine [Mass/Vol] 0.6 mg/dL Low 0.7 - 1.2 mg/dL [facility] Est, Jesu Michele Rate - PINF [facility] Comment on above: These results are not intended for use [...] following therapy that affects renal tubular secretion. Glucose [Mass/Vol] 75 mg/dL 74 - 99 mg/dL [facility] Interpretation and review of laboratory results Abnormal [facility] Potassium [Moles/Vol] 4.3 mmol/L 3.7 - 5.3 mmol/L [facility] Sodium [Moles/Vol] 120 mmol/L Low 136 - 145 mmol/L [facility] Urea nitrogen [Mass/Vol] 11 mg/dL 8 - 23 mg/dL [facility] Anion gap [Moles/Vol] 14 mmol/L 9 - 16 mmol/L [facility] Calcium [Mass/Vol] 8.5 mg/dL Low 8.6 - 10. 4 mg/dL [facility] Chloride [Moles/Vol] 89 mmol/L Low 98 - 10 7 mmol/L [facility] CO2 [Moles/Vol] 17 mmol/L Low 20 - 31 mmol/L [facility] Creatinine [Mass/Vol] 0.6 mg/dL Low 0.7 - 1.2 mg/dL [facility] Est, Jesu Michele Rate - PINF [facility] Comment on above: These results are not intended for use [...] following therapy that affects renal tubular secretion. Glucose [Mass/Vol] 76 mg/dL 74 - 99 mg/dL [facility] Interpretation and review of laboratory results Abnormal [facility] Potassium [Moles/Vol] 4.4 mmol/L 3.7 - 5.3 mmol/L [facility] Comment on above: Specimen hemolysis h as exceeded the interference as defined by Sindy. Value may be falsely increased. Suggest recollection if clinically indicated. Sodium [Moles/Vol] 120 mmol/L Low 136 - 145 mmol/L [facility] Urea nitrogen [Mass/Vol] 11 mg/dL 8 - 23 mg/dL [facility] Anion gap [Moles/Vol] 15 mmol/L 9 - 16 mmol/L [facility] Calcium [Mass/Vol] 8.6 mg/dL 8.6 - 10. 4 mg/dL [facility] Chloride [Moles/Vol] 86 mmol/L Low 98 - 10 7 mmol/L [facility] CO2 [Moles/Vol] 16 mmol/L Low 20 - 31 mmol/L [facility] Creatinine [Mass/Vol] 0.7 mg/dL 0.7 - 1.2 mg/dL [facility] Est, Jesu Michele Rate - PINF [facility] Comment on above: These results are not intended for use [...] following therapy that affects renal tubular secretion. Glucose [Mass/Vol] 90 mg/dL 74 - 99 mg/dL [facility] Interpretation and review of laboratory results Abnormal [facility] Potassium [Moles/Vol] 4.1 mmol/L 3.7 - 5.3 mmol/L [facility] Comment on above: Specimen hemolysis h as exceeded the interference as defined by Sindy. Value may be falsely increased. Suggest recollection if clinically indicated. Sodium [Moles/Vol] 117 mmol/L Critically low 136 - 1 45 mmol/L [facility] Urea nitrogen [Mass/Vol] 12 mg/dL 8 - 23 mg/dL [facility] CALCIUM, IONIC (POC)on 06-04 Calcium.ionized (Bld) [Moles/Vol] 1.18 mmol/L 1.15 - 1.33 mmol/L [facility] CT HEAD WO CONTRASTon 2024 CT HEAD WO CONTRAST EXAMINATION: CT OF THE HEAD WITHOUT CONTRAST [...] intracranial abnormality. 2. Acute right maxillary sinusitis. Interpreted by: Dixon Crockett MD Signed by: Dixon Crockett MD 06/04/25 Final result Normal [facility] CT Head WO contraston 2024 1. No acute intracranial abnormality. 2. Acute right maxillary sinusitis. [facility] EXAMINATION: CT OF THE HEAD WITHOUT CONTRAST [...] cells. SOFT TISSUES/SKULL: The calvarium is intact. [facility] Dixon Crockett MD - 06/04/2025 EXAMINATION: CT [...] intracranial abnormality. 2. Acute right maxillary sinusitis. [facility] Radiology Study observation (narrative) [facility] CT Head WO contrastOrdered B y: Dixon Crockett on 06-04-2025 [facility] Work Phone: Calcium, Ionic (POC)on 06-04 Calcium [Moles/Vol] 1.18 mmol/L Normal 1.15-1.33 [facility] Cortisolon 06-04-2025 Cortisol 11.7 ug/dL Normal 2.5-19.5 [facility] Comment on above: Result Comment: Cortisol Reference Range: AM 6.0-18.4 PM 2.7-10.5 Performed By: #### O SMO #### [facility] [place] [address] Assistant Auditor: Pankaj Cordoba MD Cortisol Totalon 06-04-2025 Cortisol [Mass/Vol] 11.7 ug/dL 2.5 - 19 .5 ug/dL [facility] Comment on above: Cortisol Reference Range: AM 6.0-18.4 PM 2.7-10.5 Creatinine W/GFR Point of Ca reon 06-04-2025 Creatinine [Mass/Vol] 0.7 mg/dL 0.51 - 1.19 mg/dL [facility] eGFR, POC - PINF [facility] Comment on above: These results are not intended for use [...] following therapy that affects renal tubular secretion. Creatinine w/GFR, POCon 05-15 Creatinine [Mass/Vol] 0.7 mg/dL Normal 0.51-1.19 [facility] GFR/1.73 sq M.predicted among non-blacks MDRD (S/P/Bld) [Vol rate/Area] mL/min/{1.73_m2} Normal >60 [facility] Comment on above: Result Comment: These results are not intended for [...] following therapy that affects renal tubular secretion. ELECTROLYTES PLUSon 06-04-20 25 Anion gap [Moles/Vol] 12 mmol/L 7 - 16 mmol/L [facility] [employer] Chloride [Moles/Vol] 89 mmol/L Low 98 - 10 7 mmol/L [facility] [employer] CO2 Calc (Bld) [Moles/Vol] 23 mmol/L 22 - 30 mmol/L [facility] Potassium [Moles/Vol] 3.9 mmol/L 3.5 - 4.5 mmol/L [facility] Sodium [Moles/Vol] 123 mmol/L Low 138 - 146 mmol/L [facility] Electrolyte Panelon 06-04-20 25 Anion gap [Moles/Vol] 9 mmol/L 9 - 16 mmol/L [facility] Chloride [Moles/Vol] 91 mmol/L Low 98 - 10 7 mmol/L [facility] CO2 [Moles/Vol] 21 mmol/L 20 - 31 mmol/L [facility] Interpretation and review of laboratory results Abnormal [facility] Potassium [Moles/Vol] 4.3 mmol/L 3.7 - 5.3 mmol/L [facility] Sodium [Moles/Vol] 121 mmol/L Low 136 - 145 mmol/L [facility] Anion gap [Moles/Vol] 12 mmol/L 9 - 16 mmol/L [facility] Chloride [Moles/Vol] 90 mmol/L Low 98 - 10 7 mmol/L [facility] CO2 [Moles/Vol] 20 mmol/L 20 - 31 mmol/L [facility] Interpretation and review of laboratory results Abnormal [facility] Potassium [Moles/Vol] 4.3 mmol/L 3.7 - 5.3 mmol/L [facility] Sodium [Moles/Vol] 122 mmol/L Low 136 - 145 mmol/L [facility] Anion gap [Moles/Vol] 11 mmol/L 9 - 16 mmol/L [facility] Chloride [Moles/Vol] 88 mmol/L Low 98 - 10 7 mmol/L [facility] CO2 [Moles/Vol] 19 mmol/L Low 20 - 31 mmol/L [facility] Interpretation and review of laboratory results Abnormal [facility] Potassium [Moles/Vol] 4.5 mmol/L 3.7 - 5.3 mmol/L [facility] Sodium [Moles/Vol] 118 mmol/L Critically low 136 - 1 45 mmol/L [facility] Electrolyteson 06-04-2025 Anion gap [Moles/Vol] 9 mmol/L Normal 9-16 [facility] Comment on above: Performed By: #### O SMO #### [facility] [address] [place] [address] Assistant Auditor: Pankaj Cordoba MD Chloride [Moles/Vol] 91 mmol/L Low 98-107 [facility] Comment on above: Performed By: #### O SMO #### [facility] [address] [place] [address] Assistant Auditor: Pankaj Cordoba MD CO2 [Moles/Vol] 21 mmol/L Normal 20-31 [facility] Comment on above: Performed By: #### O SMO #### [address] [address] Assistant Auditor: Pankaj Cordoba MD Potassium [Moles/Vol] 4.3 mmol/L Normal 3.7-5.3 [facility] Comment on above: Performed By: #### O SMO #### [address] [address] Assistant Auditor: Pankaj Cordoba MD Sodium [Moles/Vol] 121 mmol/L Low 136-145 [facility] Comment on above: Performed By: #### O SMO #### [address] [address] Assistant Auditor: Pankaj Cordoba MD Anion gap [Moles/Vol] 12 mmol/L Normal 9-16 [facility] Comment on above: Performed By: #### L YTE ####[address] [phone] Director: Pankaj Cordoba MD Chloride [Moles/Vol] 90 mmol/L Low 98-107 [facility] Comment on above: Performed By: #### L YTE ####[facility] [address] [place], [place] [phone] Director: Pankaj Cordoba MD CO2 [Moles/Vol] 20 mmol/L Normal 20-31 [facility] Comment on above: Performed By: #### L YTE ####[facility] [address] [place], [place] [phone] Director: Pankaj Cordoba MD Potassium [Moles/Vol] 4.3 mmol/L Normal 3.7-5.3 [facility] Comment on above: Performed By: #### L YTE ####[facility] [address] [place] [address] [phone] Director: Pankaj Cordoba MD Sodium [Moles/Vol] 122 mmol/L Low 136-145 [facility] Comment on above: Performed By: #### L YTE ####[facility] [address] [place] [address] [phone] Director: Pankaj Cordoba MD Anion gap [Moles/Vol] 11 mmol/L Normal 9-16 [facility] Comment on above: Performed By: #### O SMO #### [address] [address] Assistant Auditor: Pankaj Cordoba MD Chloride [Moles/Vol] 88 mmol/L Low 98-107 [facility] Comment on above: Performed By: #### O SMO #### [address] [address] Assistant Auditor: Pankaj Cordoba MD CO2 [Moles/Vol] 19 mmol/L Low 20-31 [facility] Comment on above: Performed By: #### O SMO #### [address] [address] Assistant Auditor: Pankaj Cordoba MD Potassium [Moles/Vol] 4.5 mmol/L Normal 3.7-5.3 [facility] Comment on above: Performed By: #### O SMO #### [address] [address] Assistant Auditor: Pankaj Cordoba MD Sodium [Moles/Vol] 118 mmol/L Critically low 136-145 [facility] Comment on above: Performed By: #### O SMO #### [address] [address] Assistant Auditor: Pankaj Cordoba MD Anion gap [Moles/Vol] 12 mmol/L Normal 7-16 [facility] Chloride [Moles/Vol] 89 mmol/L Low 98-107 [facility] CO2 [Moles/Vol] 23 mmol/L Normal 22-30 [facility] Potassium [Moles/Vol] 3.9 mmol/L Normal 3.5-4.5 [facility] Sodium [Moles/Vol] 123 mmol/L Low 138-146 [facility] Glucose (POC)on 06-04-2025 Glucose [Mass/Vol] 81 mg/dL Normal 74-100 [facility] Glucose,Whole Bloodon 2024 Glucose [Mass/Vol] 119 mg/dL High 75-110 [facility] Glucose [Mass/Vol] 96 mg/dL Normal 75-110 [facility] Glucose [Mass/Vol] 117 mg/dL High 75-110 [facility] Glucose [Mass/Vol] 93 mg/dL Normal 75-110 [facility] Glucose [Mass/Vol] 76 mg/dL Normal 75-110 [facility] Hemoglobin and hematocrit, b loodon 06-04-2025 Hematocrit (Bld) [Volume fraction] 36 % Low 41 - 53 % [facility] Hemoglobin (Bld) [Mass/Vol] 12.3 g/dL Low 13.5 - 17.5 g/dL [facility] Hgb/Hct, POCon 06-04-2025 Hematocrit (Bld) [Volume fraction] 36 % Low 41-53 [facility] Hemoglobin (Bld) [Mass/Vol] 12.3 g/dL Low 13.5-17.5 [facility] Lactic Acid (POC)on 06-04-20 25 Lactate [Moles/Vol] 0.8 mmol/L Normal 0.56-1.39 [facility] Lactic Acid, POCon 5 POC Lactic Acid 0.8 mmol/L 0.56 - 1.39 mmol/L [facility] No Panel Informationon 06-04 [facility] Interpretation and review of laboratory results Abnormal [facility] Osmolality, Urineon 06-04-20 25 Osmolality (U) [Osmolality] 590 mosm/kg [facility] Osmolality - Urine 590 mOsm/kg Normal 80-1300 [facility] Comment on above: Performed By: #### U RNA, UOSMO ####[facility] [address] [place], [place] [id number] Lab Director: Pankaj Cordoba MD POC Glucose Fingerstickon Glucose [Mass/Vol] 119 mg/dL High 75 - 110 mg/dL [facility] Interpretation and review of laboratory results Abnormal [facility] Glucose [Mass/Vol] 96 mg/dL 75 - 110 mg/dL [facility] Glucose [Mass/Vol] 117 mg/dL High 75 - 110 mg/dL [facility] Interpretation and review of laboratory results Abnormal [facility] Glucose [Mass/Vol] 93 mg/dL 75 - 110 mg/dL [facility] Glucose [Mass/Vol] 76 mg/dL 75 - 110 mg/dL [facility] POCT Glucoseon 06-04-2025 Glucose [Mass/Vol] 81 mg/dL 74 - 100 mg/dL [facility] POCT urea (BUN)on 06-04-2025 Urea nitrogen [Mass/Vol] 11 mg/dL 8 - 26 mg/dL [facility] PTon 06-04-2025 INR Coag (PPP) [Relative time] 1.8 {INR} Normal [facility] Comment on above: Result Comment: Therapeutic Range: Moderate Anticoagulant Intensity: INR = 2.0-3.0 High Anticoagulant Intensity: INR = 2.5-3.5 Performed By: #### P T #### [facility] [address] [place], [place] [phone] Assistant Auditor: Pankaj Cordoba MD PT Coag (PPP) [Time] 21.4 s High 11.7-14.9 [facility] Comment on above: Performed By: #### P T #### [facility] [address] [place] [address] Assistant Auditor: Pankaj Cordoba MD Protime-INRon 06-04-2025 INR Coag (PPP) [Relative time] 1.8 {INR} [facility] Comment on above: Therapeutic Range: Moderate Anticoagulant Intensity: INR = 2.0-3.0 High Anticoagulant Intensity: INR = 2.5-3.5 Interpretation and review of laboratory results Abnormal [facility] PT Coag (PPP) [Time] 21.4 s High [facility] Sodium, Random Uron 06-04-20 25 Sodium (U) [Moles/Vol] 159 mmol/L Normal [facility] Comment on above: No normal range esta blished. Result Comment: No n ormal range established. Performed By: #### U RNA, UOSMO ####[address] [place], [place] [phone] Lab Director: Pankaj Cordoba MD Sodium, urine, randomon 05-15 [facility] T4, Freeon 06-04-2025 Free T4 [Mass/Vol] 1.5 ng/dL 0.92 - 1. 68 ng/dL [facility] TSHon 06-04-2025 TSH Qn 2.95 m[IU]/L [facility] Thyroid Stim. Horm.on 2024 Thyroid Stim. Horm. 2.95 uIU/mL Normal 0.27-4.20 [facility] Comment on above: Performed By: #### O SMO #### [facility] [address] [place] [address] Assistant Auditor: Pankaj Cordoba MD Thyroxine, Freeon 06-04-2025 Thyroxine, Free 1.5 ng/dL Normal 0.92-1.68 [facility] Comment on above: Performed By: #### O SMO #### [address] [address] Assistant Auditor: Pankaj Cordoba MD Basic Metab w/rfx MGon 06-03 Anion gap [Moles/Vol] 11 mmol/L Normal 9-16 [facility] Comment on above: Performed By: #### O SMO #### [address] [address] Assistant Auditor: Pankaj Cordoba MD Calcium [Mass/Vol] 9.0 mg/dL Normal 8.6-10.4 [facility] Comment on above: Performed By: #### O SMO #### [address] [address] Assistant Auditor: Pankaj Cordoba MD Chloride [Moles/Vol] 90 mmol/L Low 98-107 [facility] Comment on above: Performed By: #### O SMO #### [address] [address] Assistant Auditor: Pankaj Cordoba MD CO2 [Moles/Vol] 20 mmol/L Normal 20-31 [facility] Comment on above: Performed By: #### O SMO #### [address] [address] Assistant Auditor: Pankaj Cordoba MD Creatinine [Mass/Vol] 0.7 mg/dL Normal 0.7-1.2 [facility] Comment on above: Performed By: #### O SMO #### [address] [address] Assistant Auditor: Pankaj Cordoba MD GFR/1.73 sq M.predicted among non-blacks MDRD (S/P/Bld) [Vol rate/Area] mL/min/{1.73_m2} Normal >60 [facility] Comment on above: Result Comment: These results are not intended for [...] following therapy that affects renal tubular secretion. Performed By: #### O SMO #### [facility] [address] [address] Assistant Auditor: Pankaj Cordoba MD Glucose [Mass/Vol] 107 mg/dL High 74-99 [facility] Comment on above: Performed By: #### O SMO #### [address] [address] Assistant Auditor: Pankaj Cordoba MD Potassium [Moles/Vol] 4.8 mmol/L Normal 3.7-5.3 [facility] Comment on above: Result Comment: Spec imen hemolysis has exceeded the interference as defined by Sindy. Value may be falsely increased. Suggest recollection if clinically indicated. Performed By: #### O SMO #### [facility] [address] [place] [id number] Assistant Auditor: Pankaj Cordoba MD Sodium [Moles/Vol] 121 mmol/L Low 136-145 [facility] Comment on above: Performed By: #### O SMO #### [facility] [address] [address] Assistant Auditor: Pankaj Cordoba MD Urea nitrogen [Mass/Vol] 13 mg/dL Normal 8-23 [facility] Comment on above: Performed By: #### O SMO #### [facility] [address] [place] [id number] Assistant Auditor: Pankaj Cordoba MD Basic Metabolic Panel w/ Ref maura to MGon 06-03-2025 Anion gap [Moles/Vol] 11 mmol/L 9 - 16 mmol/L [facility] Calcium [Mass/Vol] 9 mg/dL 8.6 - 10. 4 mg/dL [facility] Chloride [Moles/Vol] 90 mmol/L Low 98 - 10 7 mmol/L [facility] CO2 [Moles/Vol] 20 mmol/L 20 - 31 mmol/L [facility] Creatinine [Mass/Vol] 0.7 mg/dL 0.7 - 1.2 mg/dL [facility] Jesu Appiah Rate - PINF [facility] Comment on above: These results are not intended for use [...] following therapy that affects renal tubular secretion. Glucose [Mass/Vol] 107 mg/dL High 74 - 99 mg/dL [facility] Interpretation and review of laboratory results Abnormal [facility] Potassium [Moles/Vol] 4.8 mmol/L 3.7 - 5.3 mmol/L [facility] Comment on above: Specimen hemolysis h as exceeded the interference as defined by Sindy. Value may be falsely increased. Suggest recollection if clinically indicated. Sodium [Moles/Vol] 121 mmol/L Low 136 - 145 mmol/L [facility] Urea nitrogen [Mass/Vol] 13 mg/dL 8 - 23 mg/dL [facility] CBC with Auto Differentialon 06-03-2025 Basophils (Bld) [#/Vol] 0.04 10*3/uL [facility] Basophils/100 WBC (Bld) 1 % 0 - 2 % [facility] Eosinophils (Bld) [#/Vol] 0.08 10*3/uL [facility] Eosinophils/100 WBC (Bld) 1 % 1 - 4 % [facility] Erythrocyte distribution width (RBC) [Ratio] 13 % 11.8 - 14.4 % [facility] Hematocrit (Bld) [Volume fraction] 35.2 % Low 40.7 - 50.3 % [facility] Hemoglobin (Bld) [Mass/Vol] 12.3 g/dL Low 13.0 - 17.0 g/dL [facility] Immature granulocytes (Bld) [#/Vol] [facility] Immature granulocytes/100 WBC (Bld) 0 % 0 [facility] Interpretation and review of laboratory results Abnormal [facility] Lymphocytes/100 WBC (Bld) 23 % Low 24 - 43 % [facility] Lymphocytes/100 WBC (Bld) 1.68 % [facility] MCH (RBC) [Entitic mass] 30.9 pg 25.2 - 33.5 pg [facility] MCHC (RBC) [Mass/Vol] 34.9 g/dL High 28.4 - 34.8 g/dL [facility] MCV (RBC) [Entitic vol] 88.4 fL 82.6 - 102.9 fL [facility] Monocytes/100 WBC (Bld) 11 % 3 - 12 % [facility] Monocytes/100 WBC (Bld) 0.8 % [facility] Neutrophils/100 WBC (Bld) 64 % 36 - 65 % [facility] Nucleated RBC/100 WBC (Bld) [Ratio] 0 % 0.0 per 100 WBC [facility] Platelet, Fluorescence 132 Low [facility] Platelets (Bld) [#/Vol] See Reflexed IPF Result [facility] Platelets reticulated/100 platelets Auto (Bld) 5.3 % 1.1 - 10.3 % [facility] RBC (Bld) [#/Vol] 3.98 10*6/uL Low 4.21 - 5.7 7 m/uL [facility] Segmented neutrophils/100 WBC (Bld) 4.63 % [facility] WBC other (Bld) [#/Vol] 7.2 [facility] CBC with Diffon 06-03-2025 Abs. Basophil 0.04 k/uL Normal 0.00-0.20 [facility] Comment on above: Performed By: #### O SMO #### [facility] [place] [phone] Assistant Auditor: Pankaj Cordoba MD Abs.Imm.Granulocyte <0.03 Normal 0.00-0.30 [facility] Comment on above: Performed By: #### O SMO #### [place] [address] Assistant Auditor: Pankaj Cordoba MD Abs.Neutrophil (Seg) 4.63 k/uL Normal 1.50-8.10 [facility] Comment on above: Performed By: #### O SMO #### [place] [address] Assistant Auditor: Pankaj Cordoba MD Basophils/100 WBC (Bld) 1 % Normal 0-2 [facility] Comment on above: Performed By: #### O SMO #### [place] [address] Assistant Auditor: Pankaj Cordoba MD Eosinophils (Bld) [#/Vol] 0.08 10*3/uL Normal 0.00-0.44 [facility] Comment on above: Performed By: #### O SMO #### [place] [address] Assistant Auditor: Pankaj Cordoba MD Eosinophils/100 WBC (Bld) 1 % Normal 1-4 [facility] Comment on above: Performed By: #### O SMO #### [place] [address] Assistant Auditor: Pankaj Cordoba MD Erythrocyte distribution width (RBC) [Ratio] 13.0 % Normal 11.8-14.4 [facility] Comment on above: Performed By: #### O SMO #### [place] [address] Assistant Auditor: Pankaj Cordoba MD Hematocrit (Bld) [Volume fraction] 35.2 % Low 40.7-50.3 [facility] Comment on above: Performed By: #### O SMO #### [address] [address] Assistant Auditor: Pankaj Cordoba MD Hemoglobin (Bld) [Mass/Vol] 12.3 g/dL Low 13.0-17.0 [facility] Comment on above: Performed By: #### O SMO #### [address] [address] Assistant Auditor: Pankaj Cordoba MD Immature granulocytes/100 WBC (Bld) 0 % Normal 0 [facility] Comment on above: Performed By: #### O SMO #### [address] [address] Assistant Auditor: Pankaj Cordoba MD Lymphocytes (Bld) [#/Vol] 1.68 10*3/uL Normal 1.10-3.70 [facility] Comment on above: Performed By: #### O SMO #### [address] [address] Assistant Auditor: Pankaj Cordoba MD Lymphocytes/100 WBC (Bld) 23 % Low 24-43 [facility] Comment on above: Performed By: #### O SMO #### [address] [address] Assistant Auditor: Pankaj Cordoba MD MCH (RBC) [Entitic mass] 30.9 pg Normal 25.2-33.5 [facility] Comment on above: Performed By: #### O SMO #### [address] [address] Assistant Auditor: Pankaj Cordoba MD MCHC (RBC) [Mass/Vol] 34.9 g/dL High 28.4-34.8 [facility] Comment on above: Performed By: #### O SMO #### [address] [address] Assistant Auditor: Pankaj Cordoba MD MCV (RBC) [Entitic vol] 88.4 fL Normal 82.6-102.9 [facility] Comment on above: Performed By: #### O SMO #### [address] [address] Assistant Auditor: Pankaj Cordoba MD Monocytes (Bld) [#/Vol] 0.80 10*3/uL Normal 0.10-1.20 [facility] Comment on above: Performed By: #### O SMO #### [address] [address] Assistant Auditor: Pankaj Cordoba MD Monocytes/100 WBC (Bld) 11 % Normal 3-12 [facility] Comment on above: Performed By: #### O SMO #### [address] [address] Assistant Auditor: Pankaj Cordoba MD Neutrophil (Seg) 64 % Normal 36-65 [facility] Comment on above: Performed By: #### O SMO #### [address] [address] Assistant Auditor: Pankaj Cordoba MD NRBC Automated 0.0 per 100 WBC Normal 0.0 [facility] Comment on above: Performed By: #### O SMO #### [address] [address] Assistant Auditor: Pankaj Cordoba MD Platelet Count See Reflexed IPF Result Normal 138-453 [facility] Comment on above: Performed By: #### O SMO #### [address] [address] Assistant Auditor: Pankaj Cordoba MD Platelet, Fluoresc. 132 k/uL Low 138-453 [facility] Comment on above: Performed By: #### O SMO #### [address] [address] Assistant Auditor: Pankaj Cordoba MD PLT, Immature Fract. 5.3 % Normal 1.1-10.3 [facility] Comment on above: Performed By: #### O SMO #### [employer] [facility] [address] [place] [address] Assistant Auditor: Pankaj Cordoba MD RBC (Bld) [#/Vol] 3.98 10*6/uL Low 4.21-5.77 [facility] Comment on above: Performed By: #### O SMO #### [employer] [facility] [address] [place] [address] Assistant Auditor: Pankaj Cordoba MD WBC (Bld) [#/Vol] 7.2 10*3/uL Normal 3.5-11.3 [facility] Comment on above: Performed By: #### O SMO #### [facility] [address] [place] [address] Assistant Auditor: Pankaj Cordoba MD Electrolyte Panelon 06-03-20 25 Anion gap [Moles/Vol] 14 mmol/L 9 - 16 mmol/L [employer] Chloride [Moles/Vol] 86 mmol/L Low 98 - 10 7 mmol/L [employer] CO2 [Moles/Vol] 17 mmol/L Low 20 - 31 mmol/L [employer] Interpretation and review of laboratory results Abnormal [facility] [employer] Potassium [Moles/Vol] 4.4 mmol/L 3.7 - 5.3 mmol/L [facility] Comment on above: Specimen hemolysis h as exceeded the interference as defined by Sindy. Value may be falsely increased. Suggest recollection if clinically indicated. Sodium [Moles/Vol] 117 mmol/L Critically low 136 - 1 45 mmol/L [employer] Anion gap [Moles/Vol] 12 mmol/L 9 - 16 mmol/L [employer] Chloride [Moles/Vol] 89 mmol/L Low 98 - 10 7 mmol/L [employer] CO2 [Moles/Vol] 19 mmol/L Low 20 - 31 mmol/L [facility] Interpretation and review of laboratory results Abnormal [facility] Potassium [Moles/Vol] 4.5 mmol/L 3.7 - 5.3 mmol/L [facility] Comment on above: Specimen hemolysis h as exceeded the interference as defined by Sindy. Value may be falsely increased. Suggest recollection if clinically indicated. Sodium [Moles/Vol] 120 mmol/L Low 136 - 145 mmol/L [facility] Electrolyteson 06-03-2025 Anion gap [Moles/Vol] 14 mmol/L Normal 9-16 [facility] Comment on above: Performed By: #### L YTE ####[facility] [address] [place], [place] [address])[phone] Director: Pankaj Cordoba MD Chloride [Moles/Vol] 86 mmol/L Low 98-107 [facility] Comment on above: Performed By: #### L YTE ####[facility] [address] [place] [address])[phone] Director: Pankaj Cordoba MD CO2 [Moles/Vol] 17 mmol/L Low 20-31 [facility] Comment on above: Performed By: #### L YTE ####[facility] [address] [place] [address] Lab Director: aPnkaj Cordoba MD Potassium [Moles/Vol] 4.4 mmol/L Normal 3.7-5.3 [facility] Comment on above: Result Comment: Spec imen hemolysis has exceeded the interference as defined by Sindy. Value may be falsely increased. Suggest recollection if clinically indicated. Performed By: #### L YTE ####[facility] [address] [place] [address] Lab Director: Pankaj Cordoba MD Sodium [Moles/Vol] 117 mmol/L Critically low 136-145 [facility] Comment on above: Performed By: #### L YTE ####[facility] [address]lgpt[address] [place] [address] Lab Director: Pankaj Cordoba MD Anion gap [Moles/Vol] 12 mmol/L Normal 9-16 [facility] Comment on above: Performed By: #### L YTE ####[facility] [address] [place], [place] [id number])[phone] Director: Pankaj Cordoba MD Chloride [Moles/Vol] 89 mmol/L Low 98-107 [facility] Comment on above: Performed By: #### L YTE ####[facility] [address] [place] [address] Lab Director: Pankaj Cordoba MD CO2 [Moles/Vol] 19 mmol/L Low 20-31 [facility] Comment on above: Performed By: #### L YTE ####[facility] [address]udyz[address] [place] [address] Lab Director: Pankaj Cordoba MD Potassium [Moles/Vol] 4.5 mmol/L Normal 3.7-5.3 [facility] Comment on above: Result Comment: Spec imen hemolysis has exceeded the interference as defined by Sindy. Value may be falsely increased. Suggest recollection if clinically indicated. Performed By: #### L YTE ####[facility] [address] [place] [address] Lab Director: Panakj Cordoba MD Sodium [Moles/Vol] 120 mmol/L Low 136-145 [facility] Comment on above: Performed By: #### L YTE ####[facility] [address] [place] [address] Lab Director: Pankaj Cordoba MD Glucose,Whole Bloodon 2024 Glucose [Mass/Vol] 92 mg/dL Normal 75-110 [facility] Glucose [Mass/Vol] 98 mg/dL Normal 75-110 [facility] Glucose [Mass/Vol] 124 mg/dL High 75-110 [facility] Glucose [Mass/Vol] 117 mg/dL High 75-110 [facility] Osmolalityon 06-03-2025 Interpretation and review of laboratory results Abnormal [facility] Osmolality [Osmolality] 251 mosm/kg Low [facility] [employer] [facility] Osmolality [Osmolality] 251 mosm/kg Low 275-295 [facility] Comment on above: Performed By: #### O SMO #### [facility] [address] [place] [address] [phone] Assistant Auditor: Pankaj Cordoba MD POC Glucose Fingerstickon Glucose [Mass/Vol] 92 mg/dL 75 - 110 mg/dL [facility] [employer] Glucose [Mass/Vol] 98 mg/dL 75 - 110 mg/dL [facility] Glucose [Mass/Vol] 124 mg/dL High 75 - 110 mg/dL [facility] Interpretation and review of laboratory results Abnormal [facility] Glucose [Mass/Vol] 117 mg/dL High 75 - 110 mg/dL [facility] Interpretation and review of laboratory results Abnormal [facility] [employer] [facility] PREVIOUS SPECIMENon 06-03-[address] [facility] LINAGORA PTon 06-03-2025 INR Coag (PPP) [Relative time] 1.7 {INR} Normal [facility] Comment on above: Result Comment: Therapeutic Range: Moderate Anticoagulant Intensity: INR = 2.0-3.0 High Anticoagulant Intensity: INR = 2.5-3.5 Performed By: #### O SMO #### [facility] [address] [place] [address] [phone] Assistant Auditor: Pankaj Cordoba MD PT Coag (PPP) [Time] 20.3 s High 11.7-14.9 [facility] Comment on above: Performed By: #### O SMO #### [facility] [address] [place] [address] [phone] Assistant Auditor: Pankaj Cordoba MD Protime-INRon 06-03-2025 INR Coag (PPP) [Relative time] 1.7 {INR} [facility] Comment on above: Therapeutic Range: Moderate Anticoagulant Intensity: INR = 2.0-3.0 High Anticoagulant Intensity: INR = 2.5-3.5 Interpretation and review of laboratory results Abnormal [facility] PT Coag (PPP) [Time] 20.3 s High [facility] Basic Metab w/rfx MGon 06-02 Anion gap [Moles/Vol] 13 mmol/L Normal 9-16 [facility] Comment on above: Performed By: #### B MPX, PT, CDP ####[facility] [address] [place], [place] [address])[phone] Director: Pankaj Cordoba MD Calcium [Mass/Vol] 9.1 mg/dL Normal 8.6-10.4 [facility] Comment on above: Performed By: #### B MPX, PT, CDP ####[facility] [address] [place], [place] [address])[phone] Director: Pankaj Cordoba MD Chloride [Moles/Vol] 96 mmol/L Low 98-107 [facility] Comment on above: Performed By: #### B MPX, PT, CDP ####[facility] [address] [place], [place] [id number])[phone] Director: Pankaj Cordoba MD CO2 [Moles/Vol] 20 mmol/L Normal 20-31 [facility] Comment on above: Performed By: #### B MPX, PT, CDP ####[facility] [address] [place], [place] [id number])[phone] Director: Pankaj Cordoba MD Creatinine [Mass/Vol] 0.8 mg/dL Normal 0.7-1.2 [facility] Comment on above: Performed By: #### B MPX, PT, CDP ####[facility] [address] [place], [place] [id number])[phone] Director: Pankaj Cordoba MD GFR/1.73 sq M.predicted among non-blacks MDRD (S/P/Bld) [Vol rate/Area] 88 mL/min/{1.73_m2} Normal >60 [facility] Comment on above: Result Comment: These results are not intended for [...] following therapy that affects renal tubular secretion. Performed By: #### B MPX, PT, CDP ####[facility] [address] [place], [place] [address])[phone] Director: Pankaj Cordoba MD Glucose [Mass/Vol] 117 mg/dL High 74-99 [facility] Comment on above: Performed By: #### B MPX, PT, CDP ####[facility] [address] [place] [address])[phone] Director: Pankaj Cordoba MD Potassium [Moles/Vol] 4.7 mmol/L Normal 3.7-5.3 [facility] Comment on above: Performed By: #### B MPX, PT, CDP ####[facility] [address] [place] [address])[phone] Director: Pankaj Cordoba MD Sodium [Moles/Vol] 129 mmol/L Low 136-145 [facility] Comment on above: Performed By: #### B MPX, PT, CDP ####[facility] [address] [place] [address] Lab Director: Pankaj Cordoba MD Urea nitrogen [Mass/Vol] 16 mg/dL Normal 8-23 [facility] Comment on above: Performed By: #### B MPX, PT, CDP ####[facility] [address] [place] [address])[phone] Director: Pankaj Cordoba MD Basic Metabolic Panel w/ Ref maura to MGon 06-02-2025 Anion gap [Moles/Vol] 13 mmol/L 9 - 16 mmol/L [facility] Calcium [Mass/Vol] 9.1 mg/dL 8.6 - 10. 4 mg/dL [facility] Chloride [Moles/Vol] 96 mmol/L Low 98 - 10 7 mmol/L [facility] CO2 [Moles/Vol] 20 mmol/L 20 - 31 mmol/L [facility] Creatinine [Mass/Vol] 0.8 mg/dL 0.7 - 1.2 mg/dL [facility] Est, Glom Filt Rate 88 - PINF [facility] Comment on above: These results are not intended for use [...] following therapy that affects renal tubular secretion. Glucose [Mass/Vol] 117 mg/dL High 74 - 99 mg/dL [facility] Interpretation and review of laboratory results Abnormal [facility] Potassium [Moles/Vol] 4.7 mmol/L 3.7 - 5.3 mmol/L [facility] Sodium [Moles/Vol] 129 mmol/L Low 136 - 145 mmol/L [facility] Urea nitrogen [Mass/Vol] 16 mg/dL 8 - 23 mg/dL [facility] CBC with Auto Differentialon 06-02-2025 Basophils (Bld) [#/Vol] 0.06 10*3/uL [facility] Basophils/100 WBC (Bld) 1 % 0 - 2 % [facility] Eosinophils (Bld) [#/Vol] 0.08 10*3/uL [facility] Eosinophils/100 WBC (Bld) 1 % 1 - 4 % [facility] Erythrocyte distribution width (RBC) [Ratio] 13.2 % 11.8 - 14.4 % [facility] Hematocrit (Bld) [Volume fraction] 36.5 % Low 40.7 - 50.3 % [facility] Hemoglobin (Bld) [Mass/Vol] 12.3 g/dL Low 13.0 - 17.0 g/dL [facility] Immature granulocytes (Bld) [#/Vol] [facility] Immature granulocytes/100 WBC (Bld) 0 % 0 [facility] Interpretation and review of laboratory results Abnormal [facility] Lymphocytes/100 WBC (Bld) 25 % 24 - 43 % [facility] Lymphocytes/100 WBC (Bld) 1.93 % [facility] MCH (RBC) [Entitic mass] 30.7 pg 25.2 - 33.5 pg [facility] MCHC (RBC) [Mass/Vol] 33.7 g/dL 28.4 - 34.8 g/dL [facility] MCV (RBC) [Entitic vol] 91 fL 82.6 - 102.9 fL [facility] Monocytes/100 WBC (Bld) 11 % 3 - 12 % [facility] Monocytes/100 WBC (Bld) 0.84 % [facility] Neutrophils/100 WBC (Bld) 62 % 36 - 65 % [facility] Nucleated RBC/100 WBC (Bld) [Ratio] 0 % 0.0 per 100 WBC [facility] Platelet mean volume (Bld) [Entitic vol] 11.3 fL 8.1 - 13.5 fL [facility] Platelets (Bld) [#/Vol] 147 10*3/uL [facility] RBC (Bld) [#/Vol] 4.01 10*6/uL Low 4.21 - 5.7 7 m/uL [facility] Segmented neutrophils/100 WBC (Bld) 4.88 % [facility] WBC other (Bld) [#/Vol] 7.8 [facility] CBC with Diffon 06-02-2025 Abs. Basophil 0.06 k/uL Normal 0.00-0.20 [facility] Comment on above: Performed By: #### B MPX, PT, CDP ####[facility] [address] [place], [place] [id number])[phone] Director: Pankaj Cordoba MD Abs.Imm.Granulocyte <0.03 Normal 0.00-0.30 [facility] Comment on above: Performed By: #### B MPX, PT, CDP ####[facility] [address] [place], [place] [address])[phone] Director: Pankaj Cordoba MD Abs.Neutrophil (Seg) 4.88 k/uL Normal 1.50-8.10 [facility] Comment on above: Performed By: #### B MPX, PT, CDP ####[facility] [address] [place], [place] [address])[phone] Director: Pankaj Cordoba MD Basophils/100 WBC (Bld) 1 % Normal 0-2 [facility] Comment on above: Performed By: #### B MPX, PT, CDP ####[facility] [address] [place], [place] [address])[phone] Director: Pankaj Cordoba MD Eosinophils (Bld) [#/Vol] 0.08 10*3/uL Normal 0.00-0.44 [facility] Comment on above: Performed By: #### B MPX, PT, CDP ####[facility] [address] [place] [address])[phone] Director: Pankaj Cordoba MD Eosinophils/100 WBC (Bld) 1 % Normal 1-4 [facility] Comment on above: Performed By: #### B MPX, PT, CDP ####[facility] [address] [place], [place] [address])[phone] Director: Pankaj Cordoba MD Erythrocyte distribution width (RBC) [Ratio] 13.2 % Normal 11.8-14.4 [facility] Comment on above: Performed By: #### B MPX, PT, CDP ####[facility] [address] [place] [address] [id number])[phone] Director: Pankaj Cordoba MD Hematocrit (Bld) [Volume fraction] 36.5 % Low 40.7-50.3 [facility] Comment on above: Performed By: #### B MPX, PT, CDP ####[facility] [address] [place], [place] [id number])[phone] Director: Pankaj Cordoba MD Hemoglobin (Bld) [Mass/Vol] 12.3 g/dL Low 13.0-17.0 [facility] Comment on above: Performed By: #### B MPX, PT, CDP ####[facility] [address]ta[address] [place], [place] [id number])[phone] Director: Pankaj Cordoba MD Immature granulocytes/100 WBC (Bld) 0 % Normal 0 [facility] Comment on above: Performed By: #### B MPX, PT, CDP ####[facility] [address] [place] [address] [id number])[phone] Director: Pankaj Cordoba MD Lymphocytes (Bld) [#/Vol] 1.93 10*3/uL Normal 1.10-3.70 [facility] Comment on above: Performed By: #### B MPX, PT, CDP ####[facility] [address]lr[address] [place], [place] 38367419)[phone] Director: Pankaj Cordoba MD Lymphocytes/100 WBC (Bld) 25 % Normal 24-43 [facility] Comment on above: Performed By: #### B MPX, PT, CDP ####[facility] [address] [place], [place] [id number])[phone] Director: Pankaj Cordoba MD MCH (RBC) [Entitic mass] 30.7 pg Normal 25.2-33.5 [facility] Comment on above: Performed By: #### B MPX, PT, CDP ####[facility] [address] [place], [place] [phone])[phone] Director: Pankaj Cordoba MD MCHC (RBC) [Mass/Vol] 33.7 g/dL Normal 28.4-34.8 [facility] Comment on above: Performed By: #### B MPX, PT, CDP ####[facility] [address] [place], [place] [phone] Director: Pankaj Cordoba MD MCV (RBC) [Entitic vol] 91.0 fL Normal 82.6-102.9 [facility] Comment on above: Performed By: #### B MPX, PT, CDP ####[facility] [address] [place], [place] [phone])[phone] Director: Pankaj Cordoba MD Monocytes (Bld) [#/Vol] 0.84 10*3/uL Normal 0.10-1.20 [facility] Comment on above: Performed By: #### B MPX, PT, CDP ####[facility] [address] [place] [address] [id number])[phone] Director: Pankaj Cordoba MD Monocytes/100 WBC (Bld) 11 % Normal 3-12 [facility] Comment on above: Performed By: #### B MPX, PT, CDP ####[facility] [address] [place] [address] [id number])[phone] Director: Pankaj Cordoba MD Neutrophil (Seg) 62 % Normal 36-65 [facility] Comment on above: Performed By: #### B MPX, PT, CDP ####[facility] [address] [place], [place] [phone])[phone] Director: Pankaj Cordoba MD NRBC Automated 0.0 per 100 WBC Normal 0.0 [facility] Comment on above: Performed By: #### B MPX, PT, CDP ####[facility] [address] [place], [place] [id number])[phone] Director: Pankaj Cordoba MD Platelet mean volume (Bld) [Entitic vol] 11.3 fL Normal 8.1-13.5 [facility] Comment on above: Performed By: #### B MPX, PT, CDP ####[facility] [address] [place], [place] [id number])[phone] Director: Pankaj Cordoba MD Platelets (Bld) [#/Vol] 147 10*3/uL Normal 138-453 [facility] Comment on above: Performed By: #### B MPX, PT, CDP ####[facility] [address] [place], [place] [id number])[phone] Director: Pankaj Cordoba MD RBC (Bld) [#/Vol] 4.01 10*6/uL Low 4.21-5.77 [facility] Comment on above: Performed By: #### B MPX, PT, CDP ####[facility] [address]ghgrb54[address] [place], [place] [id number])[phone] Director: Pankaj Cordoba MD WBC (Bld) [#/Vol] 7.8 10*3/uL Normal 3.5-11.3 [facility] Comment on above: Performed By: #### B MPX, PT, CDP ####[facility] [address] [place], [place] [id number])[phone] Director: Pankaj Cordoba MD Glucose,Whole Bloodon 2024 Glucose [Mass/Vol] 127 mg/dL High 75-110 [facility] Glucose [Mass/Vol] 109 mg/dL Normal 75-110 [facility] Glucose [Mass/Vol] 110 mg/dL Normal 75-110 [facility] POC Glucose Fingerstickon Glucose [Mass/Vol] 127 mg/dL High 75 - 110 mg/dL [facility] Interpretation and review of laboratory results Abnormal [facility] [employer] Glucose [Mass/Vol] 109 mg/dL 75 - 110 mg/dL [facility] Glucose [Mass/Vol] 110 mg/dL 75 - 110 mg/dL [facility] PTon 06-02-2025 INR Coag (PPP) [Relative time] 1.9 {INR} Normal [facility] Comment on above: Result Comment: Therapeutic Range: Moderate Anticoagulant Intensity: INR = 2.0-3.0 High Anticoagulant Intensity: INR = 2.5-3.5 Performed By: #### B MPX, PT, CDP ####[employer] [address] [place], [place] [id number] lab Director: Pankaj Cordoba MD PT Coag (PPP) [Time] 22.2 s High 11.7-14.9 [facility] Comment on above: Performed By: #### B MPX, PT, CDP ####[employer] [address] [place] [address] lab Director: Pankaj Cordoba MD Protime-INRon 06-02-2025 INR Coag (PPP) [Relative time] 1.9 {INR} [facility] Comment on above: Therapeutic Range: Moderate Anticoagulant Intensity: INR = 2.0-3.0 High Anticoagulant Intensity: INR = 2.5-3.5 Interpretation and review of laboratory results Abnormal [facility] PT Coag (PPP) [Time] 22.2 s High [facility] CHEMISTRYOrdered By: Christine Stevens on 05-20-2025 Albumin [...] (Bld) [Mass fraction] 5.6 % Normal <=5.9% [facility] [employer] [id number] 05-20-2025 HbA1c (Bld) [Mass fraction] 5.6 % Normal <=5.9 [facility] Comment on above: Performed By: #### [id number] #### [facility] [address] [place] [address] Lipid Panelon 05-20-2025 Cholesterol [Mass/Vol] 150 mg/dL Normal 120-200 [facility] Comment on above: Performed By: #### 2 [id number] #### [facility] [address] [place] [address] Cholesterol in HDL [Mass/Vol] 57 mg/dL Invalid Interpretation Code [facility] Comment on above: Result Comment: '>= 60 LOW RISK' '<= 40 HIGH RISK' Performed By: #### 2 [id number] #### [facility] [address] [place] [address] Cholesterol in LDL [Mass/Vol] 77 mg/dL Normal <=129 [facility] Comment on above: Performed By: #### 2 [id number] #### [facility] [address] [place] [address] Cholesterol in VLDL [Mass/Vol] 11 mg/dL Normal 7-40 [facility] Comment on above: Performed By: #### 2 [id number] #### [facility] [address] [place] [address] Triglyceride [Mass/Vol] 53 mg/dL Normal <=149 [facility] Comment on above: Performed By: #### 2 [id number] #### [facility] [address] [place] [address] U MA/Cr Ratioon 05-20-2025 Microalb/Cr Ratio NOT CALCULATED Invalid Interpretation Code .0-30.0 [facility] Comment on above: Result Comment: 30-3 00 mg/g Cr indicates an increased risk for diabetic nephropathy. >300 mg/g Cr is consistent with clinical nephropathy. Performed By: #### 1 [id number] #### [facility] [address] [place] [address] U Creatinine 62.9 mg/dL Invalid Interpretation Code [facility] Comment on above: Performed By: #### 1 [id number] #### [facility] [address] [place] [address] U Microalb <0.7 Normal 0.0-1.9 [facility] Comment on above: Performed By: #### 1 [id number] #### [facility] [address] [place] [address] Ambulatory Visit Summaryon 0 05-09-2025 Ambulatory Visit [...] Appointments Tuesday 8:20 AM EDT With: Where: [address] [address]- Tuesday 10:40 AM EDT With: YANIQUE CHAMBERS CNP Where: [address] [address]- Tuesday2025 8:00 AM EDT With: Where: [address] [address]- You Need to Complete the Following HgbA1c, Blood, Routine collect, 05/09/25, Order for future visit, Lab Collect, DM type 2 causing vascular disease, Required & Missing, Print Label By Order Location Lipid Panel, Blood, Routine collect, 05/09/25, Order for future visit, Lab Collect, Hyperlipidemia DM type 2 causing vascular disease, Required & Missing, Print Label By Order Location Urine Microalbumin/Creatin ine Ratio, Urine, Routine collect, 05/09/25, Order for [...] Capsules By Mouth Every day Pickup at [facility] Unchanged Turmeric (Turmeric 500 mg oral capsule) 1 Capsules By Mouth Every day as needed for Prophylaxis Unchanged ubiquinone (CoQ10) See instructions Unchanged warfarin (warfarin 5 mg Tab) 1 Tablets By Mouth Every day Pharmacy Information [facility]: [address] [facility] Madeline Mata [place] [id number] [phone] Allergies No Known Medication Allergies Problems Ongoing [...] in a (more content not included)... Normal [facility] Family Medicine Office/Clini c Noteon 05-09-2025 Family [...] of clutter to prevent tripping and/or falling. [place] Advance Directives reviewed, at home. Encouraged to [...] patient requests, he will have completed at [facility] prior to next PCP visit. Colonoscopy screenings [...] Voices understandin (more content not included)... Normal [facility] Comment on above: Result Comment: Elec tronically Signed By: YANIQUE CHAMBERS CNP\.br\Date and Time Signed: 05/09/25 11:11 EDT\.br\Electronically Co-Signed By: Angelica Crews\.br\Date and Time Co-Signed: 05/09/25 11:02 EDT Ambulatory Visit Summaryon 0 02-05-2025 Ambulatory Visit Summary Ambulatory Visit Summary DARIEL ZABALA :1940 Visit Date:02/05/2025 Ambulatory Visit Instructions Your [...] Follow-Up Appointments 2024 8:00 AM EDT Where: [facility] [address] [address]- Medications What How Much When Instructions Unchanged [...] for choosing us for your care. Normal [facility] BMPon 02-05-2025 Anion gap [Moles/Vol] 8 mmol/L Normal 6-16 [facility] Comment on above: Performed By: #### 2 [id number] #### [facility] [address] [place] [address] Calcium [Mass/Vol] 8.8 mg/dL Low 8.9-11.1 [facility] Comment on above: Performed By: #### 2 [id number] #### [facility] [address] [place] [address] Chloride [Moles/Vol] 99 mmol/L Low 101-111 [facility] Comment on above: Performed By: #### 2 [id number] #### [facility] [address] [place] [address] CO2 [Moles/Vol] 28 mmol/L Normal 21-31 [facility] Comment on above: Performed By: #### 2 [id number] #### [facility] [address] [place] [address] Creatinine [Mass/Vol] 1.0 mg/dL Normal 0.5-1.3 [facility] Comment on above: Performed By: #### 2 [id number] #### [facility] [address] [place] [address] Glucose [Mass/Vol] 104 mg/dL Normal 55-199 [facility] Comment on above: Performed By: #### 2 [id number] #### [facility] [address] [place] [address] Potassium [Moles/Vol] 4.2 mmol/L Normal 3.5-5.3 [facility] Comment on above: Performed By: #### 2 [id number] #### [facility] [address] [place] [address] Sodium [Moles/Vol] 131 mmol/L Low 135-145 [facility] Comment on above: Performed By: #### 2 [id number] #### [facility] [address] [place] [address] Urea nitrogen [Mass/Vol] 13 mg/dL Normal 5-21 [facility] Comment on above: Performed By: #### 2 [id number] #### [facility] [address] [place] [address] Urea nitrogen/Creatinine [Mass ratio] 13 No Units Normal 10-20 [facility] Comment on above: Performed By: #### 2 [id number] #### [facility] [address] [place] [address] CHEMISTRYOrdered By: SYSTEM SYSTEM on 02-05-2025 Anion gap [Moles/Vol] 8 mmol/L Normal 6 - 16 mEq/L R emisol Chem Calcium [Mass/Vol] 8.8 mg/dL Low 8.9 - 11. 1 mg/dL Rem[facility] Chem Chloride [Moles/Vol] 99 mmol/L Low 101 - 1 11 mmol/L [facility] Chem CO2 [Moles/Vol] 28 mmol/L Normal 21 - 31 mmol/L [facility] Creatinine [Mass/Vol] 1.0 mg/dL Normal 0.5 - 1.3 mg/dL [facility] Chem eGFR 75 mL/min/1.73 m2 Normal >=59mL/min /1 .73 m2 [facility] Glucose [Mass/Vol] 104 mg/dL Normal 55 - 199 mg/dL Remisol [...] reports as effective. Ongoing follow-up with a wastewater engineer is planned for later in February. The [...] confirmation of an upcoming appointment with a wastewater engineer later in February to further assess their [...] mcg(0.025 mg) (more content not included)... Normal [facility] Comment on above: Result Comment: Elec tronically Signed By: Kylah Garcia MD\.br\Date and Time Signed: 02/05/25 13:47 EDT eGFRon 02-05-2025 eGFR 75 mL/min/1.73 m2 Normal >=59 [facility] Comment on above: Performed By: #### 1 [id number] #### [facility] [address] [place] [address] Ambulatory Visit Summaryon 0 01-24-2025 Ambulatory Visit Summary Ambulatory Visit Summary DARIEL ZABALA :1940 Visit Date:01/24/2025 Ambulatory Visit Instructions Your Diagnosis BMI 25.0-25.9,adult Overweight (BMI 25.0-29.9) Nonsmoker Hyponatremia Hard of hearing Hypothyroid Your Care Team Attending Physician - Kylah Garcia MD Primary Care Physician - Kylah Garcia MD This Is Your Medications List sodium [...] Appointments Tuesday 1:30 PM EDT With: Kylah Garcia MD E. Where: [address] [address] 2024 8:00 AM EDT With: Where: [address] [address]- Medications What How Much When Instructions Changed sodium chloride (Sodium Chloride 1 g oral tablet) See instructions 1 gram orally BID Pickup at [facility] Unchanged atenolol (atenolol 25 [...] physician if questions or concerns Pharmacy Information [facility]: [address] [facility] ANDERSON Cristobal [phone] Allergies No Known Medication Allergies Problems Ongoing [...] in adult (more content not included)... Normal [facility] BMPon 01-24-2025 Anion gap [Moles/Vol] 9 mmol/L Normal 6-16 [facility] Comment on above: Performed By: #### 2 [id number] #### [facility] [address] [place] [address] Calcium [Mass/Vol] 8.8 mg/dL Low 8.9-11.1 [facility] Comment on above: Performed By: #### 2 [id number] #### [facility] [address] [place] [address] Chloride [Moles/Vol] 98 mmol/L Low 101-111 [facility] Comment on above: Performed By: #### 2 [id number] #### [facility] [address] [place] [address] CO2 [Moles/Vol] 27 mmol/L Normal 21-31 [facility] Comment on above: Performed By: #### 2 [id number] #### [facility] [address] [place] [address] Creatinine [Mass/Vol] 1.0 mg/dL Normal 0.5-1.3 [facility] Comment on above: Performed By: #### 2 [id number] #### [facility] [address] [place] [address] Glucose [Mass/Vol] 114 mg/dL Normal 55-199 [facility] Comment on above: Performed By: #### 2 [id number] #### [facility] [address] [place] [address] Potassium [Moles/Vol] 4.5 mmol/L Normal 3.5-5.3 [facility] Comment on above: Performed By: #### 2 [id number] #### [facility] [address] [place] [address] Sodium [Moles/Vol] 129 mmol/L Low 135-145 [facility] Comment on above: Performed By: #### 2 [id number] #### [facility] [address] [place] [address] Urea nitrogen [Mass/Vol] 12 mg/dL Normal 5-21 [facility] Comment on above: Performed By: #### 2 [id number] #### [facility] [address] [place] [address] Urea nitrogen/Creatinine [Mass ratio] 12 No Units Normal 10-20 [facility] Comment on above: Performed By: #### 2 [id number] #### [facility] [address] [place] [address] CHEMISTRYOrdered By: SYSTEM SYSTEM on 01-24-2025 Anion gap [Moles/Vol] 9 mmol/L Normal 6 - 16 mEq/L R emisol Chem Calcium [Mass/Vol] 8.8 mg/dL Low 8.9 - 11. 1 mg/dL [facility] Chem Chloride [Moles/Vol] 98 mmol/L Low 101 - 1 11 mmol/L [facility] CO2 [Moles/Vol] 27 mmol/L Normal 21 - 31 mmol/L [facility] Creatinine [Mass/Vol] 1.0 mg/dL Normal 0.5 - 1.3 mg/dL [facility] Chem eGFR 75 mL/min/1.73 m2 Normal >=59mL/min /1 .73 m2 [facility] Glucose [Mass/Vol] 114 mg/dL Normal 55 - 199 mg/dL [facility] Potassium [Moles/Vol] 4.5 mmol/L Normal 3.5 [...] wear the damaged aids, requiring a future animal care specialist visit to resolve this issue. Moreover, the patient is under management for hypothyroidism, consistently taking his prescribed thyroid medication as directed. He denies experiencing notable symptoms of hypothyroidism, such as coldness or heightened fatigue. His reported increased daytime sleep appears to be associated more with lifestyle factors than with hypothyroidism. - Monitoring and follow-up for hyponatremia through scheduled nephrology appointment. - Anticipated animal care specialist visit for hearing aid assessment and repair [...] The patient will follow up with a wastewater engineer for further evaluation and management of hyponatremia. We will adjust the sodium supplementation based on the upcoming lab results. Ordered: Basic Metabolic Panel Lab Specimen Collect [address] TSH With T4fr Reflex 5. 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 An appointment with an appropriate animal care specialist has been planned to assess and replace [...] ensure therap (more content not included)... Normal [facility] Comment on above: Result Comment: Elec tronically Signed By: Kylah Garcia MD\.br\Date and Time Signed: 01/24/25 14:16 EDT TSH With T4fr Reflexon 01-24 TSH Qn 2.69 m[IU]/L Normal 0.34-5.60 [facility] Comment on above: Performed By: #### 1 [id number] #### [facility] [address] [place] [address] eGFRon 01-24-2025 eGFR 75 mL/min/1.73 m2 Normal >=59 [facility] Comment on above: Performed By: #### 1 [id number] #### [facility] [address] [place] [id number] Population Healthon 01-15-20 [facility] Case Information Case Priority: None Programs: -- Referral Source: Data Center Architect Referral Reason: Care coordination Case Type: Transition Care Management Risk Score: -- Case Status: Enrolled (December 17, 2024) Date Assigned: December 17, 2024 Assigned By: Alec Rodrigez Date Enrolled: December 17, 2024 Assigned Primary Personnel: Alec Rodrigez Assigned Secondary Personnel: -- Case Physician: Kylah Garcia MD Problems Ongoing ASCVD (arteriosclerotic cardiovascular disease) [...] tcm note. Created By: Alec Rodrigez Normal [facility] BMPon 01-09-2025 Anion gap [Moles/Vol] 9 mmol/L Normal 6-16 [facility] Comment on above: Performed By: #### 2 [id number] #### [facility] [address] [place] [address] Calcium [Mass/Vol] 9.0 mg/dL Normal 8.9-11.1 [facility] Comment on above: Performed By: #### 2 [id number] #### [facility] [address] [place] [address] Chloride [Moles/Vol] 93 mmol/L Low 101-111 [facility] Comment on above: Performed By: #### 2 [id number] #### [facility] [address] [place] [address] CO2 [Moles/Vol] 27 mmol/L Normal 21-31 [facility] Comment on above: Performed By: #### 2 [id number] #### [facility] [address] [place] [address] Creatinine [Mass/Vol] 0.8 mg/dL Normal 0.5-1.3 [facility] Comment on above: Performed By: #### 2 [id number] #### [facility] [address] [place] [address] Glucose [Mass/Vol] 110 mg/dL Normal 55-199 [facility] Comment on above: Performed By: #### 2 [id number] #### [facility] [address] [place] [address] Potassium [Moles/Vol] 4.1 mmol/L Normal 3.5-5.3 [facility] Comment on above: Performed By: #### 2 [id number] #### [facility] [address] [place] [address] Sodium [Moles/Vol] 125 mmol/L Low 135-145 [facility] Comment on above: Performed By: #### 2 [id number] #### [facility] [address] [place] [address] Urea nitrogen [Mass/Vol] 12 mg/dL Normal 5-21 [facility] Comment on above: Performed By: #### 2 [id number] #### [facility] [address] [place] [address] Urea nitrogen/Creatinine [Mass ratio] 15 No Units Normal 10-20 [facility] Comment on above: Performed By: #### 2 [id number] #### [facility] [address] [place] [address] CHEMISTRYOrdered By: SYSTEM SYSTEM on 01-09-2025 Anion gap [Moles/Vol] 9 mmol/L Normal 6 - 16 mEq/L R emisol Chem Calcium [Mass/Vol] 9.0 mg/dL Normal 8.9 - 11. 1 mg/dL [facility] Chem Chloride [Moles/Vol] 93 mmol/L Low 101 - 1 11 mmol/L [facility] CO2 [Moles/Vol] 27 mmol/L Normal 21 - 31 mmol/L [facility] Creatinine [Mass/Vol] 0.8 mg/dL Normal 0.5 - 1.3 mg/dL [facility] Chem eGFR 88 mL/min/1.73 m2 Normal >=59mL/min /1 .73 m2 [facility] Glucose [Mass/Vol] 110 mg/dL Normal 55 - 199 mg/dL [facility] Potassium [Moles/Vol] 4.1 mmol/L Normal 3.5 - 5.3 mmol/L [facility] Sodium [Moles/Vol] 125 mmol/L Low 135 - 145 mmol/L [facility] Urea nitrogen [Mass/Vol] 12 mg/dL Normal 5 - 21 mg/dL [facility] Urea nitrogen/Creatinine [Mass ratio] 15 mg/mg Normal 10 - 20 [facility] eGFRon 01-09-2025 eGFR 88 mL/min/1.73 m2 Normal >=59 [facility] Comment on above: Performed By: #### 1 [id number] #### [facility] [address] [place] [address] Population Healthon 01-07-20 [facility] Case Information Case Priority: None Programs: -- Referral Source: Data Center Architect Referral Reason: Care coordination Case Type: Transition Care Management Risk Score: -- Case Status: Enrolled (December 17, 2024) Date Assigned: December 17, 2024 Assigned By: Alec Rodrigez Date Enrolled: December 17, 2024 Assigned Primary Personnel: Alec Rodrigez Assigned Secondary Personnel: -- Case Physician: Kylah Garcia MD Ongoing ASCVD (arteriosclerotic cardiovascular disease) Back [...] changes as of 01-12, he'll be with [employer]. Patient has medication refill request, proposed [...] tcm note. Created By: Alec Rodrigez Normal [facility] BMPon 12-31-2024 Anion gap [Moles/Vol] 10 mmol/L Normal 6-16 [facility] Comment on above: Performed By: #### 2 [id number] #### [facility] [address] [place] [address] Calcium [Mass/Vol] 9.3 mg/dL Normal 8.9-11.1 [facility] Comment on above: Performed By: #### 2 [id number] #### [facility] [address] [place] [address] Chloride [Moles/Vol] 95 mmol/L Low 101-111 [facility] Comment on above: Performed By: #### 2 [id number] #### [facility] [address] [place] [address] CO2 [Moles/Vol] 27 mmol/L Normal 21-31 [facility] Comment on above: Performed By: #### 2 [id number] #### [facility] [address] [place] [address] Creatinine [Mass/Vol] 0.8 mg/dL Normal 0.5-1.3 [facility] Comment on above: Performed By: #### 2 [id number] #### [facility] [address] [place] [address] Glucose [Mass/Vol] 90 mg/dL Normal 55-199 [facility] Comment on above: Performed By: #### 2 [id number] #### [facility] [address] [place] [address] Potassium [Moles/Vol] 4.3 mmol/L Normal 3.5-5.3 [facility] Comment on above: Performed By: #### 2 [id number] #### [facility] [address] [place] [address] Sodium [Moles/Vol] 128 mmol/L Low 135-145 [facility] Comment on above: Performed By: #### 2 [id number] #### [facility] [address] [place] [address] Urea nitrogen [Mass/Vol] 13 mg/dL Normal 5-21 [facility] Comment on above: Performed By: #### 2 [id number] #### [facility] [address] [place] [address] Urea nitrogen/Creatinine [Mass ratio] 16 No Units Normal 10-20 [facility] Comment on above: Performed By: #### 2 [id number] #### [facility] [address] [place] [address] CHEMISTRYOrdered By: SYSTEM SYSTEM on 12-31-2024 Anion gap [Moles/Vol] 10 mmol/L Normal 6 - 16 mEq/L R emisol Chem Calcium [Mass/Vol] 9.3 mg/dL Normal 8.9 - 11. 1 mg/dL [facility] Chloride [Moles/Vol] 95 mmol/L Low 101 - 1 11 mmol/L [facility] CO2 [Moles/Vol] 27 mmol/L Normal 21 - 31 mmol/L [facility] Creatinine [Mass/Vol] 0.8 mg/dL Normal 0.5 - 1.3 mg/dL [facility] eGFR 88 mL/min/1.73 m2 Normal >=59mL/min /1 .73 m2 [facility] Glucose [Mass/Vol] 90 mg/dL Normal 55 - 199 mg/dL [facility] Potassium [Moles/Vol] 4.3 mmol/L Normal 3.5 - 5.3 mmol/L [facility] Sodium [Moles/Vol] 128 mmol/L Low 135 - 145 mmol/L [facility] Urea nitrogen [Mass/Vol] 13 mg/dL Normal 5 - 21 mg/dL [facility] Urea nitrogen/Creatinine [Mass ratio] 16 mg/mg Normal 10 - 20 [facility] eGFRon 12-31-2024 eGFR 88 mL/min/1.73 m2 Normal >=59 [facility] Comment on above: Performed By: #### 1 [id number] #### [facility] [address] [place] [address] Family Medicine Office/Clini c Noteon 12-24-2024 Family Medicine Office/Clinic Note Family Medicine Office/Clinic Note Chief Complaint 1wk follow up Concerns about sodium levels and evaluation of overall health status. HPI Staff 1wk follow up IAM referred to nephrology. Has appt 03/20/25 w/Dr Lara. BUN: 10 mg/dL (12/17/24 15:28:00) Calcium Lvl: 9.1 mg/dL (12/17/24 15:28:00) Chloride: 98 mmol/L Low (12/17/24 15:28:00) CO2: 27 mmol/L (12/17/24) Creatinine: 0.9 mg/dL (12/17/24:) eGFR: 85 mL/min/1.73 m2 (12/17/24) Glucose Lvl: 113 mg/dL (12/17/24) Potassium Lvl: 3.9 mmol/L (12/17/24:) Sodium Lvl: 131 mmol/L Low (12/17/24) No new concerns at this time. History [...] changes. We (more content not included)... Normal [facility] Comment on above: Result Comment: Elec tronically Signed By: Adam COHN, Kylah Lopez.br\Date and Time Signed: 12/24/24 13:31 [facility] 12-24-19 Population Health Population Health Case Information Case Priority: None Programs: -- Referral Source: Data Center Architect Referral Reason: Care coordination Case Type: Transition Care Management Risk Score: -- Case Status: Enrolled (December 17, 2024) Date Assigned: December 17, 2024 Assigned By: Alec Rodrigez Date Enrolled: December 17, 2024 Assigned Primary Personnel: Alec Rodrigez Assigned Secondary Personnel: -- Case Physician: Kylah Garcia MD Ongoing ASCVD (arteriosclerotic cardiovascular disease) Back [...] tcm note. Created By: Alec Rodrigez Normal [facility] BMPon 12-18-2024 Anion gap [Moles/Vol] 10 mmol/L Normal 6-16 [facility] Comment on above: Performed By: #### 2 [id number] #### [facility] [address] [place] [address] Calcium [Mass/Vol] 9.1 mg/dL Normal 8.9-11.1 [facility] Comment on above: Performed By: #### 2 [id number] #### [facility] [address] [place] [address] Chloride [Moles/Vol] 98 mmol/L Low 101-111 [facility] Comment on above: Performed By: #### 2 [id number] #### [facility] [address] [place] [address] CO2 [Moles/Vol] 27 mmol/L Normal 21-31 [facility] Comment on above: Performed By: #### 2 [id number] #### [facility] [address] [place] [address] Creatinine [Mass/Vol] 0.9 mg/dL Normal 0.5-1.3 [facility] Comment on above: Performed By: #### 2 [id number] #### [facility] [address] [place] [address] Glucose [Mass/Vol] 113 mg/dL Normal 55-199 [facility] Comment on above: Performed By: #### 2 [id number] #### [facility] [address] [place] [address] Potassium [Moles/Vol] 3.9 mmol/L Normal 3.5-5.3 [facility] Comment on above: Performed By: #### 2 [id number] #### [facility] [address] [place] [address] Sodium [Moles/Vol] 131 mmol/L Low 135-145 [facility] Comment on above: Performed By: #### 2 [id number] #### [facility] [address] [place] [address] Urea nitrogen [Mass/Vol] 10 mg/dL Normal 5-21 [facility] Comment on above: Performed By: #### 2 [id number] #### [facility] [address] [place] [address] Urea nitrogen/Creatinine [Mass ratio] 11 No Units Normal 10-20 [facility] Comment on above: Performed By: #### 2 [id number] #### [facility] [address] [place] [address] eGFRon 12-18-2024 eGFR 85 mL/min/1.73 m2 Normal >=59 [facility] Comment on above: Performed By: #### 1 [id number] #### [facility] [address] [place] [address] Family Medicine Office/Clini c Noteon 12-17-2024 Family Medicine Office/Clinic Note Family Medicine Office/Clinic Note Chief Complaint ER follow up Confusion and persistent fatigue post-discharge with a concern for recurrent hyponatremia HPI Staff Pt presents today for ER follow up. Hospital: [facility] Visit date:12/14/24 Symptoms the patient presented with: [...] up with Nephrology. Ordered: Basic Metabolic Panel [facility] External Ambulatory Referral 2. 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 Ordered: Basic Metabolic Panel [facility] External Ambulatory Referral 3. Longstanding persistent atrial fibrillation (I48.11: Longstanding persistent atrial fibrillation) Maintain current management regime, evaluate rhythm control, and anticoagulation status during follow-up visits. Ordered: Basic Metabolic Panel [facility] External Ambulatory Referral 4. Hyponatremia (E87.1: Hypo-osmolality and hyponatremia) Continue monitoring sodium levels closely, with recommended nephrology review for stabilization strategy. No significant lifestyle factors contributing to sodium imbalance noted. Ordered: Basic Metabolic Panel [facility] External Ambulatory Referral 5. Hypothyroid (E03.9: Hypothyroidism, unspecified) Monitor thyroid levels to ensure therapeutic levels are maintained, adjust medications if indicated by lab abnormalities. Ordered: Basic Metabolic Panel [facility] External Ambulatory Referral 6. Nonsmoker (Z78.9: Other specified health status) Please continue to not smoke. Ordered: Basic Metabolic Panel Orders: fluticasone nasal, See Instructions, 48 mL, Refill(s) 1, USE 1 SPRAY IN EACH NOSTRIL TWICE A DAY, [id number], 178, cm, 08/28/24 14:50:00 EDT, Height/Length Dosing, 82.2, kg, 08/28/24 14:50:00 EDT, Weight Dosing sodium chloride, See Instructions, 1 gram orally daily, # 90 tab(s), Refills(s) 0, Pharmacy: [facility] [facility], 178.6, cm, 12/17/24 15:05:00 EST, Height/Length Dosing, 78.5, kg, 12/17/24 15: (more content not included)... Normal [facility] Comment on above: Result Comment: Elec tronically Signed By: Adam COHN, Kylah Cole\.br\Date and Time Signed: 12/17/24 15:29 EST Population Health 12-17-19 [facility] Case Information Case Priority: None Programs: -- Referral Source: Data Center Architect Referral Reason: Care coordination Case Type: Transition Care Management Risk Score: -- Case Status: Enrolled (December 17, 2024) Date Assigned: December 17, 2024 Assigned By: Alec Rodrigez Date Enrolled: December 17, 2024 Assigned Primary Personnel: lAec Rodrigez Assigned Secondary Personnel: -- Case Physician: Kylah Garcia MD Problems Ongoing ASCVD (arteriosclerotic cardiovascular disease) [...] Daily, 1 refills fluticasone Nasal 0.05 mg/inh [place], See Instructions, Self Directed gabapentin 300 mg [...] Care Plan Progress Note Admit Date: 12/14/24 [facility] Date of Discharge: 12/15/24 Follow-up appointment scheduled? [...] cold wea (more content not included)... Normal [facility] Main OR Intraoperative Recor don 11-20-2024 Main OR Intraoperative Record Main OR Intraoperative Record IntraOp Document Type FT Summary Primary Physician: Axel Hernández DO Finalized Date/Time: 11/20/24 07:56:52 Pt. Name: DARIEL ZABALA/Sex: 1940 Male Med Rec #: [id number] Physician: Axel Hernández DO Financial #: [id number] Pt. Type: A Room/Bed: Admit/Disch: 11/19/24 09:28:12 - 11/19/24 14:30:00 Institution: [...] Entry 2 Entry 3 Case Attendee Daniel FISHER TRAWL NET, Ethan Hernández DO, Axel Faria [employer]CIAL SALES MANAGER, Chau Jimenez Role Performed FISHER TRAWL NET Surgeon - Primary REGIONAL COMMERCIAL SALES MANAGER/SA Time In 11/19/24 12:10:00 11/19/24 12:23:00 11/19/24 12:10:00 Time Out 11/19/24 12:37:00 11/19/24 12:35:00 11/19/24 12:37:00 Procedure CARPAL TUNNEL CARPAL TUNNEL CARPAL TUNNEL RELEASE(Left) RELEASE(Left) RELEASE(Left) Comments DR LOU SUPERVISING Last Modified By: Ambrocio Borges Terry T Sweene, Terry T 11/19/24 12:45:19 11/19/24 12:53:03 11/19/24 12:45:19 Entry 4 Entry 5 Case Attendee Ambrocio Borges Laura C Role Performed [employer]illery Basic - Primary Scrub - Primary Time In [...] Time Out Ethan Sanchez CRNA, Given Participants Axel Hernández DO, Giana STEEL, Rudy Woodward Laura C, Ambrocio Borges Time [...] and tissue Entry 1 Skin Integrity Intact, [place], Warm, & Skin Abnormality No Dry Outcomes [...] Hand Ta (more content not included)... Normal [facility] Operative Reporton Operative Report Operative Report SURGERY [...] Satisfactory Axel Hernández D.O. ca Dictated: 11/19/2024 [id number] Transcribed: 11/19/2024 cc:Kylah Garcia M.D. [facility] Comment on above: Result Comment: Elec tronically Signed By: Edgar ELLIS, Axel T\.br\Date and Time Signed: 11/20/24 16:36 EST BMPon 11-19-2024 Anion gap [Moles/Vol] 10 mmol/L Normal 6-16 [facility] Comment on above: Order Comment: To be drawn day of surgery. Performed By: #### 2 [id number] #### [facility] [address] [place] [address] Calcium [Mass/Vol] 9.2 mg/dL Normal 8.9-11.1 [facility] Comment on above: Order Comment: To be drawn day of surgery. Performed By: #### 2 [id number] #### [facility] [address] [place] [address] Chloride [Moles/Vol] 98 mmol/L Low 101-111 [facility] Comment on above: Order Comment: To be drawn day of surgery. Performed By: #### 2 [id number] #### [facility] [address] [place] [address] CO2 [Moles/Vol] 26 mmol/L Normal 21-31 [facility] Comment on above: Order Comment: To be drawn day of surgery. Performed By: #### 2 [id number] #### [facility] [address] [place] [address] Creatinine [Mass/Vol] 0.9 mg/dL Normal 0.5-1.3 [facility] Comment on above: Order Comment: To be drawn day of surgery. Performed By: #### 2 [id number] #### [facility] [address] [place] [address] Glucose [Mass/Vol] 77 mg/dL Normal 55-199 [facility] Comment on above: Order Comment: To be drawn day of surgery. Performed By: #### 2 [id number] #### [facility] [address] [place] [address] Potassium [Moles/Vol] 4.2 mmol/L Normal 3.5-5.3 [facility] Comment on above: Order Comment: To be drawn day of surgery. Performed By: #### 2 [id number] #### [facility] [address] [place] [address] Sodium [Moles/Vol] 130 mmol/L Low 135-145 [facility] Comment on above: Order Comment: To be drawn day of surgery. Performed By: #### 2 [id number] #### [facility] [address] [place] [address] Urea nitrogen [Mass/Vol] 8 mg/dL Normal 5-21 [facility] Comment on above: Order Comment: To be drawn day of surgery. Performed By: #### 2 [id number] #### [facility] [address] [place] [address] Urea nitrogen/Creatinine [Mass ratio] 9 No Units Low 10-20 [facility] Comment on above: Order Comment: To be drawn day of surgery. Performed By: #### 2 [id number] #### [facility] [address] [place] [address] CHEMISTRYOrdered By: Lab ROP User on 11-19-2024 Glucose [Mass/Vol] 78 mg/dL Normal 55 - 99 mg/dL [facility] POC Subsection Comment on above: Result Comment: Hilary danna Meter POC Username MAYA SOTELO Invalid Interpretation Code [facility] POC Subsection Sodium [Moles/Vol] [id number] mmol/L Invalid Interpretation Code [facility] POC Subsection Sodium [Moles/Vol] [id number] mmol/L Invalid Interpretation Code [facility] POC Subsection CHEMISTRYOrdered By: SYSTEM SYSTEM on 11-19-2024 Anion gap [Moles/Vol] 10 mmol/L Normal 6 - 16 mEq/L R emisol Chem Calcium [Mass/Vol] 9.2 mg/dL Normal 8.9 - 11. 1 mg/dL Remisol Chem Chloride [Moles/Vol] 98 mmol/L Low 101 - 1 11 mmol/L Remisol Chem CO2 [Moles/Vol] 26 mmol/L Normal 21 - 31 mmol/L Remisol Chem Creatinine [Mass/Vol] 0.9 mg/dL Normal 0.5 - 1.3 mg/dL Remisol Chem eGFR 85 mL/min/1.73 m2 Normal >=59mL/min /1 .73 m2 Remisol Chem Glucose [Mass/Vol] 77 mg/dL Normal 55 - 199 mg/dL Remisol [...] 38.5 s High 25.1 - 36.5 second(s) [facility] [employer] Comment on above: Interpretive Data: P sukhi 15 days - 4 weeks 1 - [...] the same coagulation reagent and instrumentation as [facility]. Currently there are no coagulation studies available worldwide for children to 14 days, and no normal ranges. Heparin therapeutic range (represented by Anti-Factor Xa activity of 0.2 - 0.4 U/mL) corresponds to PTT of 56.6 - 109.0 sec. INR Coag (PPP) [Relative time] 1.11 {INR} Invalid Interpretation Code [facility] [employer] Comment on above: Interpretive Data: I NR results are specifically intended to assess patients stabilized on long-term Anticoagulation therapy suggested INR s Less Intensive Anticoagulation 2.0 3.0 Conventional Range 3.0 4.5 PT Coag (PPP) [Time] 12.5 s Normal 9.4 - 1 2.5 second(s) [facility] [employer] Comment on above: [...] the same coagulation reagent and instrumentation as [facility]. Currently there are no coagulation studies available worldwide for children to 14 days, and no normal ranges. Capillary Glucose POCon Glucose [Mass/Vol] 78 mg/dL Normal 55-99 [facility] Comment on above: Result Comment: Hilary clay Meter Performed By: #### 2 [id number] #### [facility] [address] [place] [address] Discharge Instructionson Discharge Instructions Discharge Instructions DARIEL [...] Follow-Up Appointments Tuesday 10:15 AM EST With: Dixon Dubose PA-C Where: [facility] 2024 8:00 AM EDT With: Where: [place] [id number] New Follow Up Appointments after Discharge Follow Up with GORDO Weller When: 11/28/2024 01:00 PM EST Comments: Keep scheduled appointment. Call for any problems. Where: [address] [place], [place] [id number] [employer] (1) Medications What How Much When Instructions [...] fluticasone nasal (fluticasone Nasal 0.05 mg/ inh [place]) See instructions USE 1 SPRAY IN EACH [...] Allergies No Known Medication Allergies Education Materials [place] [place] [facility] CARPAL TUNNEL RELEASE INSTRUCTIONS [...] if the (more content not included)... Normal [facility] Comment on above: Result Comment: Elec tronically Signed By: Dirk KHAN, Maya Ott\.claudio\Date and Time Signed: 11/19/24 13:12 EST [facility] CAPILLARY GLUCOSE POCon 11-19-2024 Glucose [Mass/Vol] 78 mg/dL 55 - 99 mg/dL [facility] Comment on above: Cleaned Meter Original Ordering Provider: DO Axel RUIZISYFINESSE [facility] Main OR PACU I Recordon Main OR PACU I Record Main OR PACU I Record PACU Phase I Document Type FT Summary Primary Physician: Axel Hernández DO Finalized Date/Time: 11/19/24 13:24:52 Pt. Name: DARIEL ZABALA/Sex: 1940 Male Med Rec #: [id number] Physician: Axel Hernández DO Financial #: [id number] Pt. Type: A Room/Bed: [facility] Admit/Disch: 11/19/24 09:28:12 - Institution: Case [...] 13:24 Vicki Sethi RN 11/19/24 13:24 Normal [facility] Main OR PACU II Recordon Main OR PACU II Record Main OR PACU II Record PACU Phase II Document Type FT Summary Primary Physician: Axel Hernández DO Finalized Date/Time: 11/19/24 14:27:02 Pt. Name: DARIEL ZABALA/Sex: 1940 Male Med Rec #: [id number] Physician: Axel Hernández DO Financial #: [id number] Pt. Type: A Room/Bed: Admit/Disch: 11/19/24 09:28:12 [...] By: Maya Sotelo RN 11/19/24 14:27 Normal [facility] Main OR Preoperative Recordo n 11-19-2024 Main OR Preoperative Record Main OR Preoperative Record PreOp Document Type FT Summary Primary Physician: Axel Hernández DO Finalized Date/Time: 11/19/24 12:53:23 Pt. Name: DARIEL ZABALA/Sex: 1940 Male Med Rec #: [id number] Physician: Axel Hernández DO Financial #: [id number] Pt. Type: A Room/Bed: Admit/Disch: 11/19/24 09:28:12 [...] 11/19/24 12:53 Ambrocio Borges 11/19/24 12:53 Normal [facility] PT & PTTon 11-19-2024 aPTT Coag (PPP) [Time] 38.5 second(s) High 25.1-36.5 [facility] Comment on above: Result Comment: Para [...] the same coagulation reagent and instrumentation as [facility]. Currently there are no coagulation studies available worldwide for children to 14 days, and no normal ranges. Heparin therapeutic range (represented by Anti-Factor Xa activity of 0.2 - 0.4 U/mL) corresponds to PTT of 56.6 - 109.0 sec. Performed By: #### 1 [id number] #### [facility] [address] [place] [address] INR Coag (PPP) [Relative time] 1.11 {INR} Invalid Interpretation Code [facility] Comment on above: Result Comment: INR results are specifically intended to assess patients stabilized on long-term Anticoagulation therapy suggested INR???s ???Less Intensive Anticoagulation??? 2.0 ??? 3.0 Conventional Range 3.0 ??? 4.5 Performed By: #### 1 [id number] #### [facility] [address] [place] [address] PT Coag (PPP) [Time] 12.5 second(s) Normal 9.4-12.5 [facility] Comment on above: Result Comment: 15 [...] the same coagulation reagent and instrumentation as [facility]. Currently there are no coagulation studies available worldwide for children to 14 days, and no normal ranges. Performed By: #### 1 [id number] #### [facility] [address] [place] [address] eGFRon 11-19-2024 eGFR 85 mL/min/1.73 m2 Normal >=59 [facility] Comment on above: Performed By: #### 1 [id number] ####[facility] [address] [place] [address] BMPon 11-12-2024 Anion gap [Moles/Vol] 7 mmol/L Normal 6-16 [facility] Comment on above: Performed By: #### 2 [id number] #### [facility] [address] [place] [address] Calcium [Mass/Vol] 8.8 mg/dL Low 8.9-11.1 [facility] Comment on above: Performed By: #### 2 [id number] #### [facility] [address] [place] [address] Chloride [Moles/Vol] 97 mmol/L Low 101-111 [facility] Comment on above: Performed By: #### 2 [id number] #### [facility] [address] [place] [address] CO2 [Moles/Vol] 28 mmol/L Normal 21-31 [facility] Comment on above: Performed By: #### 2 [id number] #### [facility] [address] [place] [address] Creatinine [Mass/Vol] 0.9 mg/dL Normal 0.5-1.3 [facility] Comment on above: Performed By: #### 2 [id number] #### [facility] [address] [place] [address] Glucose [Mass/Vol] 106 mg/dL Normal 55-199 [facility] Comment on above: Performed By: #### 2 [id number] #### [facility] [address] [place] [address] Potassium [Moles/Vol] 4.4 mmol/L Normal 3.5-5.3 [facility] Comment on above: Performed By: #### 2 [id number] #### [facility] [address] [place] [address] Sodium [Moles/Vol] 128 mmol/L Low 135-145 [facility] Comment on above: Performed By: #### 2 [id number] #### [facility] [address] [place] [address] Urea nitrogen [Mass/Vol] 12 mg/dL Normal 5-21 [facility] Comment on above: Performed By: #### 2 [id number] #### [facility] [address] [place] [address] Urea nitrogen/Creatinine [Mass ratio] 13 No Units Normal 10-20 [facility] Comment on above: Performed By: #### 2 [id number] #### [facility] [address] [place] [address] CHEMISTRYOrdered By: SYSTEM SYSTEM on 11-12-2024 Anion gap [Moles/Vol] 7 mmol/L Normal 6 - 16 mEq/L R emisol Chem Calcium [Mass/Vol] 8.8 mg/dL Low 8.9 - 11. 1 mg/dL Remisol Chem Chloride [Moles/Vol] 97 mmol/L Low 101 - 1 11 mmol/L Remisol Chem CO2 [Moles/Vol] 28 mmol/L Normal 21 - 31 mmol/L Remisol Chem Creatinine [Mass/Vol] 0.9 mg/dL Normal 0.5 - 1.3 mg/dL Remisol Chem eGFR 85 mL/min/1.73 m2 Normal >=59mL/min /1 .73 m2 Remisol Chem Glucose [Mass/Vol] 106 mg/dL Normal 55 - 199 mg/dL Remisol Chem Potassium [Moles/Vol] 4.4 mmol/L Normal 3.5 [...] (Bld) [Mass fraction] 5.4 % Normal <=5.9% [facility] [employer] [id number] 11-12-2024 HbA1c (Bld) [Mass fraction] 5.4 % Normal <=5.9 [facility] Comment on above: Performed By: #### 7 [id number] #### [facility] [address] [place] [address] Inpatient Patient Summaryon 11-12-2024 Inpatient Patient Summary Inpatient Patient Summary [address] [address] [facility] Clinical Discharge Instructions PERSON INFORMATION Name: DARIEL ZABALA PHYSICIANS Admitting Physician: Axel Hernández DO Attending Physician: Axel Hernández DO PCP: Kylah Garcia MD Discharge Diagnosis: Carpal tunnel syndrome on left Comment: PATIENT EDUCATION INFORMATION Instructions: Edgar - Carpal Tunnel Release Instructions (Custom) (CUSTOM) Medication Leaflets: Follow up: With: Address: When: Axel Hernández [address] [place] [address] [employer] (1) Comments: Keep scheduled appointment Type Location Start [facility] Surgery [facility] Services 11/19/2024 2:15 PM 11/19/2024 2:45 PM Confirmed Cardiology Follow Up ([facility]) [facility] 12/12/2024 10:15 AM 12/12/2024 10:30 AM Confirmed Medicare Wellness Subsequent [facility] Jackie 05/02/2025 8:00 AM 05/02/2025 9:00 [...] 1. fluticasone nasal (fluticasone Nasal 0.05 mg/inh [place]) USE 1 SPRAY IN EACH NOSTRIL TWICE [...] Tablets By Mouth every day. Comment: Normal [facility] Outpatient Surgery Discharge Instructionon 11-12-2024 Outpatient Surgery Discharge Instruction Outpatient Surgery Discharge Instruction [place] [id number] Patient Discharge Instructions PERSON INFORMATION Name: DARIEL [...] JOSEPH, have received the attached patient education materials/instructio ns and have verbalized understanding: May we do a follow up call? Yes No I was present when discharge instructions were given Patient Signature Date Clinican/Nurse Signature Date Follow up: With: Address: When: Axel Hernández [address] [place] [address] [employer] (1) Comments: Keep scheduled appointment Type Location Start [facility] 11/19/2024 2:15 PM 11/19/2024 2:45 PM Confirmed Cardiology Follow Up (FT) [facility] 12/12/2024 10:15 AM 12/12/2024 10:30 AM Confirmed Medicare Wellness Subsequent [facility] FM Jackie 05/02/2025 8:00 AM 05/02/2025 9:00 [...] 1. fluticasone nasal (fluticasone Nasal 0.05 mg/inh [place]) USE 1 SPRAY IN EACH NOSTRIL TWICE [...] Mouth every day. PATIENT EDUCATION INFORMATION Instructions: [place] [place] [facility] CARPAL TUNNEL RELEASE INSTRUCTIONS Post-Operative Week One You will be in a soft dressing from mid palm to forearm. Please remove dressing two days after surgery. At that point, clean daily with peroxide or betadine and place daily fresh bandaids. Cover for showers with waterproof bandaid, op site occlusive dressing (more content not included)... Normal [facility] TSH With T4fr Reflexon 11-12 TSH Qn 2.17 m[IU]/L Normal 0.34-5.60 [facility] Comment on above: Performed By: #### 1 [id number] #### [facility] [address] [place] [address] eGFRon 11-12-2024 eGFR 85 mL/min/1.73 m2 Normal >=59 [facility] Comment on above: Performed By: #### 1 [id number] #### [facility] [address] [place] [address] Ambulatory Visit Summaryon 1 01-02-2024 Ambulatory Visit [...] Tab) fluticasone nasal (fluticasone Nasal 0.05 mg/inh [place]) gabapentin (gabapentin 300 mg Cap) glimepiride (glimepiride [...] Appointments Tuesday 9:20 AM EST With: Where: [address] [address]- Tuesday 2:15 PM EST With: Where: [facility] Services Tuesday 10:15 AM EST With: Dixon Dubose PA-C Where: [facility] 2024 8:00 AM EDT With: Where: [address] [address]- Medications What How Much When Instructions Unchanged [...] fluticasone nasal (fluticasone Nasal 0.05 mg/ inh [place]) See instructions USE 1 SPRAY IN EACH [...] choosing us for your care. Normal [facility] Family Medicine Office/Clini c Noteon 11-01-2024 [...] the left hand. - Laboratory Findings: Reports laboratory-confirmed normal blood sugar levels. Physical Exam Vitals [...] cardiovascular disease) (I25.10: Atherosclerotic heart disease of [place] coronary artery without angina pectoris) Denies CP. [...] Recent) 3074 (more content not included)... Normal [facility] Comment on above: Result Comment: Elec tronically Signed By: Adam COHN, Kylah Cole\.br\Date and Time Signed: 11/01/24 09:42 EST BMPon 10-30-2024 Anion gap [Moles/Vol] 11 mmol/L Normal 6-16 [facility] Comment on above: Performed By: #### 2 [id number] #### [facility] [address] [place] [address] Calcium [Mass/Vol] 9.0 mg/dL Normal 8.9-11.1 [facility] Comment on above: Performed By: #### 2 [id number] #### [facility] [address] [place] [address] Chloride [Moles/Vol] 96 mmol/L Low 101-111 [facility] Comment on above: Performed By: #### 2 [id number] #### [facility] [address] [place] [address] CO2 [Moles/Vol] 27 mmol/L Normal 21-31 [facility] Comment on above: Performed By: #### 2 [id number] #### [facility] [address] [place] [address] Creatinine [Mass/Vol] 0.9 mg/dL Normal 0.5-1.3 [facility] Comment on above: Performed By: #### 2 301681 #### [facility] [address] [place] [address] Glucose [Mass/Vol] 87 mg/dL Normal 55-199 [facility] Comment on above: Performed By: #### 2 [id number] #### [facility] [address] [place] [address] Potassium [Moles/Vol] 4.7 mmol/L Normal 3.5-5.3 [facility] Comment on above: Performed By: #### 2 [id number] #### [facility] [address] [place] [address] Sodium [Moles/Vol] 129 mmol/L Low 135-145 [facility] Comment on above: Performed By: #### 2 [id number] #### [facility] [address] [place] [address] Urea nitrogen [Mass/Vol] 15 mg/dL Normal 5-21 [facility] Comment on above: Performed By: #### 2 [id number] #### [facility] [address] [place] [address] Urea nitrogen/Creatinine [Mass ratio] 17 No Units Normal 10-20 [facility] Comment on above: Performed By: #### 2 [id number] #### [facility] [address] [place] [address] CBC w/ Auto Diffon 4 Basophils/100 WBC (Bld) 0.9 % Normal 0.0-2.0 [facility] Comment on above: Performed By: #### 2 [id number] #### [facility] [address] [place] [address] Basophils/Leukocytes Auto (Bld) [Pure # fraction] 0.0 E9/L Normal 0.0-0.2 [facility] Comment on above: Performed By: #### 2 105302 #### [facility] [address] [place] [address] Eosinophils (Bld) [#/Vol] 0.2 E9/L Normal 0.0-0.5 [facility] Comment on above: Performed By: #### 2 [id number] #### [facility] [address] [place] [address] Eosinophils/100 WBC (Bld) 3.6 % Normal 0.0-8.0 [facility] Comment on above: Performed By: #### 2 [id number] #### [facility] [address] [place] [address] Erythrocyte distribution width (RBC) [Ratio] 13.4 % Normal 10.9-14.2 [facility] Comment on above: Performed By: #### 2 [id number] #### [facility] [address] [place] [address] Hematocrit (Bld) [Volume fraction] 36.3 % Low 37.7-49.0 [facility] Comment on above: Performed By: #### 2 [id number] #### [facility] [address] [place] [address] Hemoglobin (Bld) [Mass/Vol] 12.8 g/dL Low 13.5-17.5 [facility] Comment on above: Performed By: #### 2 300037 #### [facility] [address] [place] [address] Lymphocytes (Bld) [#/Vol] 1.5 E9/L Normal 1.0-4.0 [facility] Comment on above: Performed By: #### 2 [id number] #### [facility] [address] [place] [address] Lymphocytes/100 WBC (Bld) 30.1 % Normal 14.0-50.0 [facility] Comment on above: Performed By: #### 2 [id number] #### [facility] [address] [place] [address] MCH (RBC) [Entitic mass] 31.7 pg Normal 27.0-34.0 [facility] Comment on above: Performed By: #### 2 [id number] #### [facility] [address] [place] [address] MCHC (RBC) [Mass/Vol] 35.2 g/dL Normal 31.4-36.0 [facility] Comment on above: Performed By: #### 2 [id number] #### [facility] [address] [place] [address] MCV (RBC) [Entitic vol] 90.1 fL Normal 80.0-100.0 [facility] Comment on above: Performed By: #### 2 662405 #### [facility] [address] [place] [address] Monocytes (Bld) [#/Vol] 0.4 E9/L Normal 0.2-1.0 [facility] Comment on above: Performed By: #### 2 [id number] #### [facility] [address] [place] [address] Neutrophils (Bld) [#/Vol] 2.9 E9/L Normal 2.0-7.5 [facility] Comment on above: Performed By: #### 2 [id number] #### [facility] [address] [place] [address] Neutrophils/100 WBC (Bld) 56.9 % Normal 36.0-75.0 [facility] Comment on above: Performed By: #### 2 565753 #### [facility] [address] [place] [address] Platelet 175.0 E9/L Normal 150.0-500.0 [facility] Comment on above: Performed By: #### 2 106853 #### [facility] [address] [place] [address] Platelet mean volume (Bld) [Entitic vol] 9.1 fL Normal 6.4-10.8 [facility] Comment on above: Performed By: #### 2 [id number] #### [facility] [address] [place] [address] RBC (Bld) [#/Vol] 4.0 E12/L Low 4.3-5.9 [facility] Comment on above: Performed By: #### 2 [id number] #### [facility] [address] [place] [address] WBC corrected for nucl RBC Auto (Bld) [#/Vol] 5.1 E9/L Normal 4.0-11.0 [facility] Comment on above: Performed By: #### 2 [id number] #### [facility] [address] [place] [address] CHEMISTRYOrdered By: SYSTEM SYSTEM on 10-30-2024 Anion gap [Moles/Vol] 11 mmol/L Normal 6 - 16 mEq/L R emisol Chem Calcium [Mass/Vol] 9.0 mg/dL Normal 8.9 - 11. 1 mg/dL Remisol Chem Chloride [Moles/Vol] 96 mmol/L Low 101 - 1 11 mmol/L Remisol Chem CO2 [Moles/Vol] 27 mmol/L Normal 21 - 31 mmol/L Remisol Chem Creatinine [Mass/Vol] 0.9 mg/dL Normal 0.5 - 1.3 mg/dL Remisol Chem eGFR 85 mL/min/1.73 m2 Normal >=59mL/min /1 .73 m2 Remisol Chem Glucose [Mass/Vol] 87 mg/dL Normal 55 - 199 mg/dL Remisol Chem Potassium [Moles/Vol] 4.7 mmol/L Normal 3.5 [...] 4.0 E12/L Low 4.3 - 5.9 E12/L Remisol Heme WBC corrected for nucl RBC Auto (Bld) [#/Vol] 5.1 E9/L Normal 4.0 - 11.0 E9/L Remisol Heme eGFRon 10-30-2024 eGFR 85 mL/min/1.73 m2 Normal >=59 [facility] Comment on above: Performed By: #### 1 [id number] #### [facility] [address] [place] [address] Family Medicine Office/Clini c Noteon 09-10-2024 Family Medicine Office/Clinic Note Family Medicine Office/Clinic Note [facility] Staff Dariel is an 84 year old [...] # 90 tab(s), Refills(s) 0, Pharmacy: [facility], 178, cm, 09/10/24 13:01:00 [...] Daily, 1 refills fluticasone Nasal 0.05 mg/inh [place], See Instructions gabapentin 300 mg Cap, 300 [...] Diabetes mellitus (more content not included)... 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 male here [...] E&M of New Patient Low 30-44 Min 13961 2. ASCVD (arteriosclerotic cardiovascular disease) (I25.10: Atherosclerotic heart disease of [place] coronary artery without angina pectoris) The patient require surgery he will require cardiac clearance Ordered: E&M of New Patient Low 30-44 Min 59770 3. Longstanding persistent atrial fibrillation (I48.11: Longstanding persistent atrial fibrillation) Should patient require or opt for a robotic repair he will need to hold his anticoagulation for 5 days prior to the procedure Ordered: E&M of New Patient Low 30-44 Min 53517 Follow-up No qualifying data available Problem List/Past [...] Oral, Daily, 1 refills Flonase 0.05 mg/inh [place], 1 spray(s), Nasal, BID gabapentin 300 mg [...] virus vaccine, inactivated 08/02/[address] [facility] Comment on above: Result Comment: Elec [...] mg Tab) fluticasone nasal (Flonase 0.05 mg/inh [place]) gabapentin (gabapentin 300 mg Cap) glimepiride (glimepiride [...] EST With: Adam COHN, Kylah Cole Where: [address] [id number]- Tuesday 1:00 PM EST With: Dixon Dubose PA-C Where: [facility] 2024 8:00 AM EDT With: Where: [address] [address]- Medications What How Much When Why Instructions [...] Unchanged fluticasone nasal (Flonase 0.05 mg/ inh [place]) 1 Sprays Nasal Inhalation 2 times a [...] choosing us for your care. Clarke [facility] Family Medicine Office/Clini c Noteon 08-07-2024 [...] advised him his appt is 08/13/24 with [place] pain management at 12:30pm History of Present [...] day(s), # 21 tab(s), Refills(s) 0, Pharmacy: [facility]/pharmacy #[id number], 178, cm, 07/31/24 14:02:00 EDT, [...] Oral, Daily, 1 refills Flonase 0.05 mg/inh [place], 1 spray(s), Nasal, BID gabapentin 300 mg [...] 1 r (more content not included)... Normal [facility] Comment on above: Result Comment: Elec [...] day(s), # 21 tab(s), Refills(s) 0, Pharmacy: [facility]/pharmacy #[id number], 178, cm, 07/31/24 14:02:00 EDT, Height/Length Dosing, 78.5, kg, 07/31/24 14:02:00 EDT, Weight Dosing tramadol, 50 mg = 1 tab(s), Oral, q4hr, PRN for pain, X 7 day(s), # 21 tab(s), Refills(s) 0, Pharmacy: [facility]/pharmacy #[id number], 178, cm, 07/31/24 14:02:00 EDT, [...] Oral, Daily, 1 refills Flonase 0.05 mg/inh [place], 1 spray(s), Nasal, BID gabapentin 300 mg [...] virus vaccine, inactivated 08/02/[address] [facility] Comment on above: Result Comment: Elec [...] mg Tab) fluticasone nasal (Flonase 0.05 mg/inh [place]) gabapentin (gabapentin 300 mg Cap) glimepiride (glimepiride [...] PM EDT With: Kylah Garcia MD Where: [address] [id number]- 2023 9:15 AM EST With: Kylah Garcia MD Where: [address] [address]- Tuesday 1:00 PM EST With: Dixon Dubose PA-C Where: [facility] 2024 8:00 AM EDT With: Where: [address] [address]- Medications What How Much When [...] Unchanged fluticasone nasal (Flonase 0.05 mg/ inh [place]) 1 Sprays Nasal Inhalation 2 times a [...] choosing us for your care. [facility] Family Medicine Office/Clini c Noteon 07-24-2024 Family Medicine Office/Clinic Note Family Medicine Office/Clinic Note HPI Staff Dariel is an 84 year old male presenting for ER follow up ER followup: Hospital: [place] Visit date: 07/14/24 Symptoms the patient presented [...] patient was under the dosed. Patient stated [place] was helping him more. Patient denies any [...] - Will do Tizanadine - Will do [place] for pain - Follow up in 1 week. - Will send to pain Ordered: [facility] External Ambulatory Referral 2. Inguinal hernia of left side without obstruction or gangrene (K40.90: Unilateral inguinal hernia, without obstruction or gangrene, not specified as recurrent) - Pt cancelled his surgery. - NO pain at this time. - Encouraged follow up Ordered: [facility] External Ambulatory Referral 3. Nonsmoker (Z78.9: Other specified health status) - Please continue to not smoke Ordered: Body Mass Index (BMI) documented 3008F Current tobacco non-user 1036F Depression Screening Negative 3352F [facility] External Ambulatory Referral Most recent diastolic blood pressure <80 mm Hg 3078F Patient screen for fall risk: no falls in last year or 1 fall with no injury in last year 1101F Systolic BP <130 mm Hg (Most Recent) 3074F Orders: acetaminophen-hydroc odone, 1 tab(s), Oral, q4hr for pain for 3 day(s), 12 tab(s), Refill(s) 0, [id number], 178, cm, 07/24/24 14:57:00 EDT, Height/Length Dosing, 78.7, kg, 07/24/24 14:57:00 EDT, Weight Dosing tizanidine, 4 mg = 1 tab(s), Oral, q8hr, # 90 tab(s), Refills(s) 1, Pharmacy: [facility]/pharmacy #[id number], 178, cm, 07/24/24 14:57:00 EDT, [...] Oral, Daily, 1 refills Flonase 0.05 mg/inh [place], 1 spray(s), Nasal, BID gabapentin 300 mg Cap, 300 mg= 1 cap(s), Oral, Daily, 1 refills glimepiride 2 mg Tab, 2 mg= 1 tab(s), Oral, Daily, 1 refills Jantoven 5 mg oral tablet, 5 mg= 1 tab(s), Oral, Daily levothyroxine 25 mcg (0.025 mg) Tab, 25 mcg= 1 tab(s), Oral, Daily, 1 refills [place] 325 mg-5 mg oral tablet, 1 tab(s), [...] No. [place] (more content not included)... Normal [facility] Comment on above: Result Comment: Elec [...] EST With: Adam COHN, Kylah Cole Where: [address] [address]- Tuesday 1:00 PM EST With: Dioxn Dubose PA-C Where: [facility] 2024 8:00 AM EDT With: Where: [address] [address]- Medications What How Much When Instructions Unchanged [...] for choosing us for your care. Normal [facility] Family Medicine Office/Clini c Noteon 07-03-2024 [...] BID, 16 gram, Refill(s) 0, each nostril, [facility]pharmacy #[id number], 178, cm, 07/03/24 10:05:00 EDT, Height/Length Dosing, 80.8, kg, 07/03/24 10:05:00 EDT, Weight Dosing gabapentin, 300 mg = 1 cap(s), Oral, Daily, # 90 cap(s), Refills(s) 1, [facility], 178, cm, 07/03/24 10:05:00 EDT, Height/Length Dosing, 80.8, kg, 07/03/24 10:05:00 EDT, Weight Dosing omeprazole, 40 mg = 1 cap(s), Oral, Daily, # 90 cap(s), Refills(s) 0, Pharmacy: [facility], 178.2, cm, 02/02/24 10:29:00 EDT, Height/Length Dosing, 84.1, kg, 02/02/24 10:29:00 EDT, Weight Dosing sildenafil, 100 mg = 1 tab(s), Oral, Daily, PRN for erectile dysfunction, 1 hour before sexual activity, # 5 tab(s), Refills(s) 0, Pharmacy: [facility], 178, cm, 07/03/24 10:05:00 EDT, Height/Length Dosing, 80.8, kg, 07/03/24 10:05:00 EDT,... 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 Normal [facility] Comment on above: Result Comment: Elec [...] distress Neck: Supple, noJVD nocarotid bruit Cardiovascular: irregularly-irregula r rate and rhythm, no murmur normal peripheral [...] influenza virus vaccine, inactivated 08/02/2014 Recorded Normal [facility] Comment on above: Result Comment: Elec tronically Signed By: Ericka COHN, Kashif Perez.br\Date and Time Signed: 06/11/24 13:14 EDT CBC w/ Auto Diffon 4 Basophils/100 WBC (Bld) 0.9 % Normal 0.0-2.0 [facility] Comment on above: Performed By: #### 2 [id number] #### [facility] [address] [place] [address] Basophils/Leukocytes Auto (Bld) [Pure # fraction] 0.0 E9/L Normal 0.0-0.2 [facility] Comment on above: Performed By: #### 2 [id number] #### [facility] [address] [place] [address] Eosinophils (Bld) [#/Vol] 0.1 E9/L Normal 0.0-0.5 [facility] Comment on above: Performed By: #### 2 [id number] #### [facility] [address] [place] [address] Eosinophils/100 WBC (Bld) 2.4 % Normal 0.0-8.0 [facility] Comment on above: Performed By: #### 2 [id number] #### [facility] [address] [place] [address] Erythrocyte distribution width (RBC) [Ratio] 14.4 % High 10.9-14.2 [facility] Comment on above: Performed By: #### 2 [id number] #### [facility] [address] [place] [address] Hematocrit (Bld) [Volume fraction] 42.2 % Normal 37.7-49.0 [facility] Comment on above: Performed By: #### 2 [id number] #### [facility] [address] [place] [address] Hemoglobin (Bld) [Mass/Vol] 14.0 g/dL Normal 13.5-17.5 [facility] Comment on above: Performed By: #### 2 [id number] #### [facility] [address] [place] [address] Lymphocytes (Bld) [#/Vol] 1.4 E9/L Normal 1.0-4.0 [facility] Comment on above: Performed By: #### 2 [id number] #### [facility] [address] [place] [address] Lymphocytes/100 WBC (Bld) 34.0 % Normal 14.0-50.0 [facility] Comment on above: Performed By: #### 2 [id number] #### [facility] [address] [place] [address] MCH (RBC) [Entitic mass] 30.8 pg Normal 27.0-34.0 [facility] Comment on above: Performed By: #### 2 [id number] #### [facility] [address] [place] [address] MCHC (RBC) [Mass/Vol] 33.1 g/dL Normal 31.4-36.0 [facility] Comment on above: Performed By: #### 2 [id number] #### [facility] [address] [place] [address] MCV (RBC) [Entitic vol] 92.9 fL Normal 80.0-100.0 [facility] Comment on above: Performed By: #### 2 872128 #### [facility] [address] [place] [address] Monocytes (Bld) [#/Vol] 0.4 E9/L Normal 0.2-1.0 [facility] Comment on above: Performed By: #### 2 [id number] #### [facility] [address] [place] [address] Neutrophils (Bld) [#/Vol] 2.2 E9/L Normal 2.0-7.5 [facility] Comment on above: Performed By: #### 2 [id number] #### [facility] [address] [place] [address] Neutrophils/100 WBC (Bld) 53.4 % Normal 36.0-75.0 [facility] Comment on above: Performed By: #### 2 [id number] #### [facility] [address] [place] [address] Platelet 166.0 E9/L Normal 150.0-500.0 [facility] Comment on above: Performed By: #### 2 [id number] #### [facility] [address] [place] [address] Platelet mean volume (Bld) [Entitic vol] 9.8 fL Normal 6.4-10.8 [facility] Comment on above: Performed By: #### 2 [id number] #### [facility] [address] [place] [address] RBC (Bld) [#/Vol] 4.5 E12/L Normal 4.3-5.9 [facility] Comment on above: Performed By: #### 2 [id number] #### [facility] [address] [place] [address] WBC corrected for nucl RBC Auto (Bld) [#/Vol] 4.2 E9/L Normal 4.0-11.0 [facility] Comment on above: Performed By: #### 2 [id number] #### [facility] [address] [place] [address] CHEMISTRYOrdered By: SYSTEM SYSTEM on 05-01-2024 Albumin [Mass/Vol] 4.2 g/dL Normal 3.3 - 5.0 gm/dL Remisol Chem Albumin/Globulin [Mass ratio] 1.4 {ratio} Normal 1.1 - 2.2 Remisol Chem ALP [Catalytic activity/Vol] 83 [iU]/d Normal 21 - 98 Int._Unit/L Remisol Chem ALT No additional P-5'-P [Catalytic activity/Vol] 14 [iU]/d Normal 6 - 46 Int._Unit/L Remisol Chem Anion gap [Moles/Vol] 10 mmol/L Normal 6 - 16 mEq/L R emisol Chem AST [Catalytic activity/Vol] 22 [iU]/d Normal 5 - 43 Int._Unit/L Remisol Chem Bilirubin [Mass/Vol] 0.9 mg/dL Normal 0.0 - 1 .1 mg/dL Remisol Chem Calcium [Mass/Vol] 9.5 mg/dL Normal 8.9 - 11. 1 mg/dL Remisol Chem Chloride [Moles/Vol] 103 mmol/L Normal 101 - 1 11 mmol/L Remisol Chem Cholesterol [Mass/Vol] 168 mg/dL Normal [...] 29 mmol/L Normal 21 - 31 mmol/L Remisol Chem Creatinine [Mass/Vol] 1.1 mg/dL Normal 0.5 - 1.3 mg/dL Remisol Chem eGFR 67 mL/min/1.73 m2 Normal >=59mL/min /1 .73 m2 Remisol Chem Globulin (S) [Mass/Vol] 2.9 g/dL Normal 1.4 - 4.0 gm/dL Remisol Chem Glucose [Mass/Vol] 104 mg/dL Normal 55 - 199 mg/dL Remisol Chem Potassium [Moles/Vol] 5.2 mmol/L Normal 3.5 [...] for this result was chemiluminescence using [employer]'s Access Hybritech PSA reagent. Protein [Mass/Vol] 7.1 g/dL Normal 6.0 - 7.8 gm/dL Rem[facility] Chem Sodium [Moles/Vol] 137 mmol/L Normal 135 - 145 mmol/L Rem[facility] Chem Triglyceride [Mass/Vol] 78 mg/dL Normal <=149mg/dL [facility] Chem Urea nitrogen [Mass/Vol] 15 mg/dL Normal 5 - 21 mg/dL Rem[facility] Chem Urea nitrogen/Creatinine [Mass ratio] 14 mg/mg Normal 10 - 20 Remisol Chem CMPon 05-01-2024 Albumin [Mass/Vol] 4.2 g/dL Normal 3.3-5.0 [facility] Comment on above: Performed By: #### 2 [id number] #### [facility] [address] [place] [address] Albumin/Globulin (S) [Mass conc ratio] 1.4 Normal 1.1-2.2 [facility] Comment on above: Performed By: #### 2 [id number] #### [facility] [address] [place] [address] ALP [Catalytic activity/Vol] 83 Int._Unit/L Normal 21-98 [facility] Comment on above: Performed By: #### 2 [id number] #### [facility] [address] [place] [address] ALT No additional P-5'-P [Catalytic activity/Vol] 14 Int._Unit/L Normal 6-46 [facility] Comment on above: Performed By: #### 2 [id number] #### [facility] [address] [place] [address] Anion gap [Moles/Vol] 10 mmol/L Normal 6-16 [facility] Comment on above: Performed By: #### 2 [id number] #### [facility] [address] [place] [address] AST [Catalytic activity/Vol] 22 Int._Unit/L Normal 5-43 [facility] Comment on above: Performed By: #### 2 721374 #### [facility] [address] [place] [address] Bilirubin [Mass/Vol] 0.9 mg/dL Normal 0.0-1.1 [facility] Comment on above: Performed By: #### 2 765223 #### [facility] [address] [place] [address] Calcium [Mass/Vol] 9.5 mg/dL Normal 8.9-11.1 [facility] Comment on above: Performed By: #### 2 [id number] #### [facility] [address] [place] [address] Chloride [Moles/Vol] 103 mmol/L Normal 101-111 [facility] Comment on above: Performed By: #### 2 986678 #### [facility] [address] [place] [address] CO2 [Moles/Vol] 29 mmol/L Normal 21-31 [facility] Comment on above: Performed By: #### 2 [id number] #### [facility] [address] [place] [address] Creatinine [Mass/Vol] 1.1 mg/dL Normal 0.5-1.3 [facility] Comment on above: Performed By: #### 2 799679 #### [facility] [address] [place] [address] Globulin (S) [Mass/Vol] 2.9 g/dL Normal 1.4-4.0 [facility] Comment on above: Performed By: #### 2 [id number] #### [facility] [address] [place] [address] Glucose [Mass/Vol] 104 mg/dL Normal 55-199 [facility] Comment on above: Performed By: #### 2 [id number] #### [facility] [address] [place] [address] Potassium [Moles/Vol] 5.2 mmol/L Normal 3.5-5.3 [facility] Comment on above: Performed By: #### 2 864757 #### [facility] [address] [place] [address] Protein [Mass/Vol] 7.1 g/dL Normal 6.0-7.8 [facility] Comment on above: Performed By: #### 2 [id number] #### [facility] [address] [place] [address] Sodium [Moles/Vol] 137 mmol/L Normal 135-145 [facility] Comment on above: Performed By: #### 2 [id number] #### [facility] [address] [place] [address] Urea nitrogen [Mass/Vol] 15 mg/dL Normal 5-21 [facility] Comment on above: Performed By: #### 2 820587 #### [facility] [address] [place] [address] Urea nitrogen/Creatinine [Mass ratio] 14 No Units Normal 10-20 [facility] Comment on above: Performed By: #### 2 257176 #### [facility] [address] [place] [address] HEMATOLOGYOrdered By: SYSTEM SYSTEM on 05-01-2024 Basophils/100 [...] 4.5 E12/L Normal 4.3 - 5.9 E12/L Remisol Heme WBC corrected for nucl RBC Auto (Bld) [#/Vol] 4.2 E9/L Normal 4.0 - 11.0 E9/L Remisol Heme Lipid Panelon 05-01-2024 Cholesterol [Mass/Vol] 168 mg/dL Normal 120-200 [facility] Comment on above: Performed By: #### 2 260387 #### [facility] [address] [place] [address] Cholesterol in HDL [Mass/Vol] 54 mg/dL Invalid Interpretation Code [facility] Comment on above: Result Comment: '>= 60 LOW RISK' '<= 40 HIGH RISK' Performed By: #### 2 [id number] #### [facility] [address] [place] [address] Cholesterol in LDL [Mass/Vol] 99 mg/dL Normal <=129 [facility] Comment on above: Performed By: #### 2 088257 #### [facility] [address] [place] [address] Cholesterol in VLDL [Mass/Vol] 16 mg/dL Normal 7-40 [facility] Comment on above: Performed By: #### 2 830477 #### [facility] [address] [place] [address] Triglyceride [Mass/Vol] 78 mg/dL Normal <=149 [facility] Comment on above: Performed By: #### 2 080280 #### [facility] [address] [place] [address] PSA Screen, Totalon 05-01-20 24 Prostate specific Ag [Mass/Vol] 1.3 ng/mL Normal 0.1-3.5 [facility] Comment on above: Result Comment: The concentration of PSA determined by different manufacturers can vary due to differences in assay methods and reagent specificity. Values obtained from different assay methods cannot be used interchangeably. The methodology used for this result was chemiluminescence using [employer]'s Access Hybritech PSA reagent. Performed By: #### 1 [id number] #### [facility] [address] [place] [address] CHEMISTRYOrdered By: Lab ROP User on 03-26-2024 Glucose [Mass/Vol] 92 mg/dL Normal 55 - 99 mg/dL [facility] POC Subsection Comment on above: Result Comment: Justine garcia RN/ POC Device SN [id number] 1 Invalid Interpretation Code [facility] POC Subsection POC User ID [id number] 1 Invalid Interpretation Code [facility] POC Subsection POC Username ITZEL WILSON Invalid Interpretation Code [facility] POC Subsection COAGULATIONOrdered By: Toshia Tadeo on 03-26-2024 aPTT Coag (PPP) [Time] 35.8 s Normal 25.1 - 36.5 second(s) [facility] Auto Coag Comment on above: [...] the same coagulation reagent and instrumentation as [facility]. Currently there are no coagulation studies available worldwide for children to 14 days, and no normal ranges. Heparin therapeutic range (represented by Anti-Factor Xa activity of 0.2 - 0.4 U/mL) corresponds to PTT of 56.6 - 109.0 sec. INR Coag (PPP) [Relative time] 1.19 {INR} Invalid Interpretation Code [facility] Auto Coag Comment on above: Interpretive Data: I NR results are specifically intended to assess patients stabilized on long-term Anticoagulation therapy suggested INR s Less Intensive Anticoagulation 2.0 3.0 Conventional Range 3.0 4.5 PT Coag (PPP) [Time] 13.4 s High 9.4 - 1 2.5 second(s) [facility] Auto Coag Comment on above: [...] the same coagulation reagent and instrumentation as [facility]. Currently there are no coagulation studies available worldwide for children to 14 days, and no normal ranges. CHEMISTRYOrdered By: SYSTEM SYSTEM on 03-06-2024 Anion [...] Remisol Chem HEMATOLOGYOrdered By: SYSTEM SYSTEM on 03-06-2024 Basophils/100 [...] Normal 4.0 - 11.0 E9/L Remisol Heme CHEMISTRYOrdered By: Kate Sotomayor on 12-01-2023 U [...] (Bld) [Mass fraction] 5.6 % Normal <=5.9% [facility] ChemAutoSS HEMATOLOGYOrdered By: SYSTEM SYSTEM on 12-01-2023 Basophil [...] Normal 80.0 - 100.0 fL Remisol Heme [place] Absolute 0.5 E9/L Normal 0.2 - 1.0 [...] 1 Normal 0 - 0 Remisol Heme Basic Metabolic Panelon 10-15 Anion gap [Moles/Vol] 8.1 mmol/L Normal 6.0-15.[address] [facility] Comment on above: Order Comment: Reaso n for Exam Hyponatremia Performed By: #### C BC, BMP #### [place] [address] [place] Calcium [Mass/Vol] 9.3 mg/dL Normal 8.6-10.3 [facility] Comment on above: Order Comment: Reaso n for Exam Hyponatremia Result Comment: PERF ORMED BY: [place] [address] PATHOLOGIST INORGANIC CHEMIST DANNY NEAL M.D. Performed By: #### C BC, BMP #### [facility] [address] [place] [address] [place] Chloride [Moles/Vol] 102 mmol/L Normal 98-107 [employer] Other Comment on above: Order Comment: Reaso n for Exam Hyponatremia Performed By: #### C BC, BMP #### [facility] [address] [id number] [place] CO2 [Moles/Vol] 32.4 mmol/L High 21.0-31.0 [facility] Comment on above: Order Comment: Reaso n for Exam Hyponatremia Performed By: #### C BC, BMP #### [place] [address] [place] Creatinine [Mass/Vol] 1.07 mg/dL Normal 0.70-1.[address] [facility] Comment on above: Order Comment: Reaso n for Exam Hyponatremia Performed By: #### C BC, BMP #### [facility] [address] [place] [address] [place] GFR/1.73 sq M.predicted MDRD (S/P/Bld) [Vol rate/Area] mL/min/{1.73_m2} Normal [employer] Other Comment on above: Order Comment: Reaso n for Exam Hyponatremia Performed By: #### C BC, BMP #### [facility] [address] [place] [address] [place] Glucose [Mass/Vol] 93 mg/dL Normal 70-100 [employer] [facility] [employer] Other Comment on above: Order Comment: Reaso n for Exam Hyponatremia Result Comment: [place] Glucose Reference Range is dependent on time and content of last meal. Glucose of more than 200 mg/dL in a nonstressed, ambulatory subject supports the diagnosis of Diabetes Mellitus. ADA recommended reference range Performed By: #### C BC, BMP #### [facility] [address] [id number] [place] Potassium [Moles/Vol] 4.5 mmol/L Normal 3.5-5.[address] [facility] Comment on above: Order Comment: Reaso n for Exam Hyponatremia Performed By: #### C BC, BMP #### [facility] [address] [place] [address] [place] Sodium [Moles/Vol] 138 mmol/L Normal 136-145 [employer] Other Comment on above: Order Comment: Reaso n for Exam Hyponatremia Performed By: #### C BC, BMP #### [facility] [address] [place] [address] [place] Urea nitrogen [Mass/Vol] 13 mg/dL Normal 7-25 [employer] Other Comment on above: Order Comment: Reaso n for Exam Hyponatremia Performed By: #### C BC, BMP #### [facility] [address] [place] [address] [place] Calcium [Mass/Vol] 9.8470080 mg/dL Normal 8.6-10 .3 mg/dL [employer] Other CO2 [Moles/Vol] 32.14102925 mmol/L High 21.0-3 1.0 mmol/L [employer] Other Creatinine [Mass/Vol] 1.74550035 mg/dL Normal 0. 70-1.30 mg/dL [employer] Other Potassium [Moles/Vol] [id number] mmol/L Normal 3 .5-5.1 mmol/L [facility] Informous Other Complete Blood Count Auto Di ffon 11-02-2023 Basophils (Bld) [#/Vol] 0.1 10*3/uL Normal 0.0-0.2 [facility] Comment on above: Order Comment: Reaso n for Exam Atrial fibrillation Result Comment: PERF ORMED BY: [place] [address] PATHOLOGIST INORGANIC CHEMIST DANNY NEAL M.D. Performed By: #### C BC, BMP #### [address] Basophils/100 WBC (Bld) 1.0 % Normal . [facility] Comment on above: Order Comment: Reaso n for Exam Atrial fibrillation Performed By: #### C BC, BMP #### [facility] [address] [place] [address] Eosinophils (Bld) [#/Vol] 0.1 10*3/uL Normal 0.0-0.45 [facility] Comment on above: Order Comment: Reaso n for Exam Atrial fibrillation Performed By: #### C BC, BMP #### [facility] [address] [place] [address] [place] Eosinophils/100 WBC (Bld) 2.1 % Normal . [facility] Comment on above: Order Comment: Reaso n for Exam Atrial fibrillation Performed By: #### C BC, BMP #### [facility] [address] [place] [address] [place] Erythrocyte distribution width (RBC) [Ratio] 14.0 % Normal 12.0-14.8 [facility] Comment on above: Order Comment: Reaso n for Exam Atrial fibrillation Performed By: #### C BC, BMP #### [address] Hematocrit (Bld) [Volume fraction] 38.8 % Normal 38.8-50.0 [facility] Comment on above: Order Comment: Reaso n for Exam Atrial fibrillation Performed By: #### C BC, BMP #### [address] Hemoglobin (Bld) [Mass/Vol] 13.2 g/dL Normal 13.0-17.0 [facility] Comment on above: Order Comment: Reaso n for Exam Atrial fibrillation Performed By: #### C BC, BMP #### [address] Lymphocytes (Bld) [#/Vol] 1.3 10*3/uL Normal 1.00-4.8 [facility] Comment on above: Order Comment: Reaso n for Exam Atrial fibrillation Performed By: #### C BC, BMP #### [address] Lymphocytes/100 WBC (Bld) 21.8 % Normal . [facility] Comment on above: Order Comment: Reaso n for Exam Atrial fibrillation Performed By: #### C BC, BMP #### [address] MCH (RBC) [Entitic mass] 31.5 pg Normal 27.5-35.2 [facility] Comment on above: Order Comment: Reaso n for Exam Atrial fibrillation Performed By: #### C BC, BMP #### [address] MCV (RBC) [Entitic vol] 92.7 fL Normal 83.5-101 [facility] Comment on above: Order Comment: Reaso n for Exam Atrial fibrillation Performed By: #### C BC, BMP #### [address] Mean Corpuscular HGB Conc 34.0 g/dL Normal 32.5-35.6 [facility] Comment on above: Order Comment: Reaso n for Exam Atrial fibrillation Performed By: #### C BC, BMP #### [facility] [address] [place] [address] [place] Monocytes (Bld) [#/Vol] 0.5 10*3/uL Normal 0.0-0.8 [facility] Comment on above: Order Comment: Reaso n for Exam Atrial fibrillation Performed By: #### C BC, BMP #### [facility] [address] [place] [address] [place] Monocytes/100 WBC (Bld) 8.5 % Normal . [facility] Comment on above: Order Comment: Reaso n for Exam Atrial fibrillation Performed By: #### C BC, BMP #### [facility] [address] [place] [address] [place] Neutrophils (Bld) [#/Vol] 4.0 10*3/uL Normal 1.8-7.7 [facility] Comment on above: Order Comment: Reaso n for Exam Atrial fibrillation Performed By: #### C BC, BMP #### [facility] [address] [place] [address] [place] Neutrophils/100 WBC (Bld) 66.6 % Normal . [facility] Comment on above: Order Comment: Reaso n for Exam Atrial fibrillation Performed By: #### C BC, BMP #### [facility] [address] [place] [address] [place] NRBC% 0.1 /100{WBC} Normal 0-0.5 [facility] Comment on above: Order Comment: Reaso n for Exam Atrial fibrillation Performed By: #### C BC, BMP #### [facility] [address] [place] [address] [place] Platelet mean volume (Bld) [Entitic vol] 9.4 fL Normal 6.6-10.1 [facility] Comment on above: Order Comment: Reaso n for Exam Atrial fibrillation Performed By: #### C BC, BMP #### [facility] [address] [place] [address] [place] Platelets (Bld) [#/Vol] 153 10*3/uL Normal 150-450 [employer] Other Comment on above: Order Comment: Reaso n for Exam Atrial fibrillation Performed By: #### C BC, BMP #### [facility] [address] RBC (Bld) [#/Vol] 4.19 10*6/uL Normal 3.90-5.60 [employer] Other Comment on above: Order Comment: Reaso n for Exam Atrial fibrillation Performed By: #### C BC, BMP #### [facility] [address] [place] [id number] [facility] WBC (Bld) [#/Vol] 6.1 10*3/uL Normal 4.1-10.5 [facility] Comment on above: Order Comment: Reaso n for Exam Atrial fibrillation Performed By: #### C BC, BMP #### [facility] [address] [place] [id number] [facility] Basophils (Bld) [#/Vol] [id number] 10*3/uL Normal 0.0-0.2 10*3/uL [employer] Other Basophils/100 WBC (Bld) 1.000 % . % [employer] Other Eosinophils (Bld) [#/Vol] 0.842203232 10*3/uL Normal 0.0-0.45 10*3/uL [employer] Other Eosinophils/100 WBC (Bld) 2.100 % . % [employer] Other Erythrocyte distribution width (RBC) [Ratio] 14.000 % Normal 12.0-14.8 % [employer] Other Hematocrit (Bld) [Volume fraction] 38.800 % Normal 38.8-50.0 % [employer] Other Hemoglobin (Bld) [Mass/Vol] 13.315887 g/dL Normal 13.0-17.0 g/dL [employer] Other Lymphocytes (Bld) [#/Vol] 1.063073778 10*3/uL Normal 1.00-4.8 10*3/uL [employer] Other Lymphocytes/100 WBC (Bld) 21.800 % . % [employer] Other MCH (RBC) [Entitic mass] 31.5000 pg Normal 27.5-35.2 pg [employer] Other MCV (RBC) [Entitic vol] 92.7000 fL Normal 83.5-101 fL [employer] Other Monocytes (Bld) [#/Vol] 0.934049154 10*3/uL Normal 0.0-0.8 10*3/uL [employer] Other Monocytes/100 WBC (Bld) 8.500 % . % [employer] Other Neutrophils (Bld) [#/Vol] 4.027118818 10*3/uL Normal 1.8-7.7 10*3/uL [employer] Other Neutrophils/100 WBC (Bld) 66.600 % . % [employer] Other Platelet mean volume (Bld) [Entitic vol] 9.4000 fL Normal 6.6-10.1 fL [employer] Other WBC (Bld) [#/Vol] 6.481885706 10*3/uL Normal 4.1 -10.5 10*3/uL [employer] Other Complete Blood Count Auto Diff 6.1 10*3/uL Normal 4.1-10.5 10*3/uL [employer] Other Complete Blood Count Auto Diff 34.0 g/dL Normal 32.5-35.6 g/dL [employer] Other Complete Blood Count Auto Diff 0.1 /100{WBC} Normal 0-0.5 /100{WBC} [employer] Other PSA Screen (Yearly Only)on 01-03-2023 PSA Screen (Yearly Only) 1.940 ng/mL Normal 0.000-4.000 [facility] Comment on above: Order Comment: Reaso n for Exam Prostate cancer screening Result Comment: Seri al tumor marker results determined by assays using different manufacturers or methods may not be comparable. Formerly [facility] professor of chemistry and method: [email or web address] DXI, CHEMILUMINESCENT IMMUNOASSAY. PERFORMED BY: [place] [address] PATHOLOGIST INORGANIC CHEMIST DANNY NEAL M.D. Performed By: #### P SAS #### [place] [id number] [place] Prothrombin Time INRon 06-16 INR Coag (PPP) [Relative time] 2.4 {INR} Normal [employer] Other Comment on above: Result Comment: INR [...] heart valves: 3 - 4.5 PERFORMED BY: [address] [address] PATHOLOGIST INORGANIC CHEMIST DANNY NEAL M.D. Performed By: #### P T #### [address] [address] [place] PT Coag (PPP) [Time] 27.8 s High 9.0-12.9 [facility] Comment on above: Performed By: #### P T #### [address] [address] [facility] PT Coag (PPP) [Time] 27.800 s High 9.0-12.9 s [facility] [employer] Other Coding Summaryon 05-12-2020 Coding Summary CODING DATE: 05/12/2020 FINAL [facility] STATUS: Home PAYOR: Medicare ADMIT DX: [...] Horan Date Saved: 05/12/2020 02:18 pm Normal [facility] ED Clinical Summaryon 2019 ED Clinical Summary [facility] ? Urgent Care [address] [place], [place] [id number] Clinical Summary PERSON INFORMATION Name: DARIEL ZABALA Age: 80 Years Sex: MALE : 1940 MRN: Acct#: Visit Reason: UC - Ear Problem; BILAT EAR PROBLEM Arrival: 05/08/2020 09:32:00 Discharge: 05/08/2020 10:15:00 LOS: 000 00:43 Check In: 05/08/2020 09:32:00 Checkout: 05/08/2020 10:15:00 Address: [address] [place] [id number] PCP: Provider, Unlisted PROVIDER INFORMATION Provider Role [...] Adult Follow-Up: With: Address: When: Andrés Arellano [facility], [address] [place] [address] Business (1) Comments: Please follow-up with your Doctor or Dr. Arellano, Medical Doctor refrigeration service technician, call their offices and make ointment to be seen in 3 days or sooner for continued care, please purchase [id number]-uvc-dldesoa Debrox which helps breakdown earwax, take all your medications as previously prescribed, drink plenty of water for hydration, and return back to urgent care center for any worsening symptoms, concerns, or complications. DIAGNOSIS: 1:Impacted cerumen of both ears Patient Understands: Yes - Patient/family/careg iver verbalizes understanding of instructions given Comment: Normal [facility] ED Patient Summaryon 020 ED Patient Summary [facility] ? Urgent Care [address] [place], [place] [id number] PATIENT DISCHARGE INSTRUCTIONS Patient Information Name: DARIEL ZABALA Age: 80 Years Date of : 1940 Reason For Visit: UC - Ear Problem; BILAT EAR PROBLEM Arrival Time: 05/08/2020 09:32:00 Primary Care Physician: Provider, Unlisted Attending Physician: Larry Billingsley PA-C Comment: Patient Education With: Address: When: Andrés Arellano [facility], [address] [place] [id number] Business (1) Comments: Please follow-up with your Doctor or Dr. Arellano, Medical Doctor refrigeration service technician, call their offices and make ointment to be seen in 3 days or sooner for continued care, please purchase dhqa-aza-tayxtyg Debrox which helps breakdown earwax, take all [...] Follow these instructions at home: ? Take qpmj-hwc-ytyhaae and prescription medicines only as told by [...] clean them according to instructions from the professor of chemistry and your health care provider. Contact a [...] 12/08/2005 Document Revised: 10/12/2018 Document Reviewed: 01/11/2018 [employer] Interactive Patient Education ? 2019 [employer]. Medication Information: The exam and treatment you received today in the [facility] Emergency Department were for an urgent problem and are not intended as complete care. It is important for you to follow up with a doctor, nurse practitioner, or physician?s special events assistant for ongoing care. If your symptoms [...] so we can reach you if necessary. [facility] Emergency Department has provided you with a complete list of medications post discharge. Please inform your primary grade teacher/provider of your visit and for further instruction [...] both ears (H61.23) UC - Ear Problem ([id number]) If you received any narcotics, sedation, or any other medication that causes drowsiness for the next 24 hours, unless otherwise directed: ? Do not drive a car. ? Do not operate machinery such as power tools, [place]iftonn mowers, drills, sewing machines, or stoves ? [...] for Disease Control and Prevention July 2014 [facility] Patient Handouton 05-08-2020 Patient Handout [...] Follow these instructions at home: ? Take ickr-ely-qgvhqjb and prescription medicines only as told by [...] clean them according to instructions from the professor of chemistry and your health care provider. Contact a [...] 01/11/2018 Elsevier Interactive Patient Education ? 2019 [employer] [facility] Urgent Care Recordon 05-08-2 020 Urgent Care Record [facility] ? Urgent Care [address] [place] [id number] PATIENT DISCHARGE INSTRUCTIONS Patient Information Name: DARIEL ZABALA Age: 80 Years Date of : 1940 [facility]: [id number] Reason For Visit: UC - Ear Problem; BILAT EAR PROBLEM Arrival Time: 05/08/2020 09:32:00 Primary Care Physician: Provider, Unlisted Attending Physician: Larry Billingsley PA-C Comment: Visit Diagnosis: Diagnoses This Visit Impacted cerumen of both ears (H61.23) UC - Ear Problem ([id number]) If you received any narcotics, sedation, or [...] legal documents With: Address: When: Andrés Arellano [facility], [address] [place] [address] Business (1) Comments: Please follow-up with your Doctor or Dr. Arellano, Medical Doctor refrigeration service technician, call their offices and make ointment to be seen in 3 days or sooner for continued care, please purchase qubh-hjb-ecyyrap Debrox which helps breakdown earwax, take all your medications as previously prescribed, drink plenty of water for hydration, and return back to urgent care center for any worsening symptoms, concerns, or complications. Medication Information: The exam and treatment you received today in the [facility] Care were for an urgent problem and are not intended as complete care. It is important for you to follow up with a doctor, nurse practitioner, or physician?s special events assistant for ongoing care. If your symptoms [...] so we can reach you if necessary. [facility] has provided you with a complete list of medications post discharge. Please inform your primary grade teacher/provider of your visit and for further instruction [...] Follow these instructions at home: ? Take buiu-wur-tdvpfmk and prescription medicines only as told by [...] clean them according to instructions from the professor of chemistry and your health care provider. Contact a [...] 12/08/2005 Document Revised: 10/12/2018 Document Reviewed: 01/11/2018 [employer] Interactive Patient Education ? 2019 [employer]. Viruses or Bacteria What?s got you sick? [...] Disease Control and Prevention July 2014 Normal [facility] Vital Signs Date Time Vital Sign Value Performing Clinician Facility 06-05-2025 15:00-0400 Diastolic blood pressure 47 mm[Hg] Axel Monet DO Work Phone: [facility] 06-05-2025 15:00-0400 Heart rate 71 /min Axel Monet DO Work Phone: [facility] 06-05-2025 15:00-0400 Respiratory rate 15 /min Axel Wingripdomitila E[place]IS Work Phone: [facility] 06-05-2025 15:00-0400 Systolic blood pressure 110 mm[Hg] Axel Wingrommel Work Phone: [facility] 06-05-2025 13:00-0400 Body temperature 97.7 [degF] Axel Wingrommel [place] Work Phone: [facility] 06-05-2025 06:30-0400 SaO2% (BldA) [Mass fraction] 100 % Axel Wingrommel Work Phone: [facility] 06-05-2025 04:00-0400 Body mass index (BMI) [Ratio] 26.48 kg/m2 Axel Wingrommel [place] Work Phone: [facility] 06-05-2025 04:00-0400 Body weight 83.7 kg Axel Wingrommel [place] Work Phone: [facility] 06-02-2025 10:06-0400 Body height 177.8 cm Axel Wingrommel [place] Work Phone: [facility] 11-26-2024 10:27-0500 Body mass index (BMI) [Ratio] 24.74 kg/m2 Emiliano Escamilla MD Work Phone: [facility] 11-26-2024 10:27-0500 Body weight 77.11 kg Emiliano Escamilla MD Work Phone: [facility] 11-26-2024 10:27-0500 Diastolic blood pressure 73 mm[Hg] Emiliano Escamilla MD Work Phone: [facility] 11-26-2024 10:27-0500 Heart rate 87 /min Emiliano Escamilla MD Work Phone: [facility] 11-26-2024 10:27-0500 Systolic blood pressure 148 mm[Hg] Emiliano Escamilla MD Work Phone: [facility] 11-19-2024 14:27-0500 Diastolic blood pressure 82 mm[Hg] Axel Edgar [facility] 11-19-2024 14:27-0500 Heart rate 66 /min Axel Edgar [facility] 11-19-2024 14:27-0500 Mean blood pressure 103 mm[Hg] Axel Edgar [facility] 11-19-2024 14:27-0500 Respiratory rate 18 /min Axel Edgar [facility] 11-19-2024 14:27-0500 SaO2% (BldA) [Mass fraction] 95 % Axel Edgar [facility] 11-19-2024 14:27-0500 Systolic blood pressure 144 mm[Hg] Axel Edgar [facility] 11-19-2024 13:23-0500 Blood Pressure Location Axel Hernández [facility] 11-19-2024 13:23-0500 Body temperature 96.8 [degF] Axel Edgar [facility] 11-19-2024 13:23-0500 Diastolic blood pressure 69 mm[Hg] Axel Edgar [facility] 11-19-2024 13:23-0500 Heart rate 63 /min Axel Edgar [facility] 11-19-2024 13:23-0500 Mean blood pressure 92 mm[Hg] Axel Edgar [facility] 11-19-2024 13:23-0500 Respiratory rate 20 /min Axel Edgar [facility] 11-19-2024 13:23-0500 SaO2% (BldA) [Mass fraction] 99 % Axel Edgar [facility] 11-19-2024 13:23-0500 Systolic blood pressure 139 mm[Hg] Axel Edgar [facility] 11-19-2024 13:05-0500 Body temperature 97.34 [degF] Axel Edgar [facility] 11-19-2024 13:05-0500 Diastolic blood pressure 69 mm[Hg] Axel Edgar [facility] 11-19-2024 13:05-0500 Heart rate 65 /min Axel Edgar [facility] 11-19-2024 13:05-0500 Mean blood pressure 87 mm[Hg] Axel Edgar [facility] 11-19-2024 13:05-0500 Respiratory rate 16 /min Axel Edgar [facility] 11-19-2024 13:05-0500 SaO2% (BldA) [Mass fraction] 97 % Axel Edgar [facility] 11-19-2024 13:05-0500 Systolic blood pressure 122 mm[Hg] Axel Edgar [facility] 11-19-2024 12:40-0500 Body temperature 97.7 [degF] Axel Edgar [facility] 11-19-2024 12:35-0500 Respiratory rate 12 /min Axel Edgar [facility] 11-19-2024 12:30-0500 Body temperature 96.8 [degF] Axel Edgar [facility] 11-19-2024 12:30-0500 Respiratory rate 13 /min Axel Edgar [facility] 11-19-2024 12:25-0500 Body temperature 96.8 [degF] Axel Hernández [facility] 11-19-2024 12:25-0500 Respiratory rate 15 /min Axel Edgar [facility] 11-19-2024 12:20-0500 Body temperature 96.8 [degF] Axel Edgar [facility] 11-19-2024 09:55-0500 Mean blood pressure 85 mm[Hg] Axel Edgar [facility] 11-19-2024 09:52-0500 Mean blood pressure 79 mm[Hg] Axel Edgar [facility] 10-30-2024 10:36-0500 Diastolic blood pressure 67 mm[Hg] Axel Hernández [facility] 10-30-2024 10:36-0500 Heart rate 57 /min Axel Edgar [facility] 10-30-2024 10:36-0500 Mean blood pressure 86 mm[Hg] Axel Edgar [facility] 10-30-2024 10:36-0500 Systolic blood pressure 124 mm[Hg] Axel Edgar [facility] 10-30-2024 10:34-0500 Heart rate 56 /min Axel Edgar [facility] 10-30-2024 10:34-0500 SaO2% (BldA) [Mass fraction] 100 % Axel Hernández [facility] 10-30-2024 10:34-0500 Diastolic blood pressure 83 mm[Hg] Axel Hernández [facility] 10-30-2024 10:34-0500 Mean blood pressure 105 mm[Hg] Axel Hernández [facility] 10-30-2024 10:34-0500 Systolic blood pressure 148 mm[Hg] Axel Hernández [facility] 10-03-2024 10:58-0500 Body height 176.5 cm Axel Hernández DO Work Phone: [facility] 10-03-2024 10:58-0500 Body mass index (BMI) [Ratio] 26.64 kg/m2 Axel Hernández DO Work Phone: [facility] 10-03-2024 10:58-0500 Body temperature 98.1 [degF] Axel Hernández DO Work Phone: [facility] 10-03-2024 10:58-0500 Body weight 83.01 kg Axel Hernández DO Work Phone: [facility] 08-28-2024 14:47-0400 Blood Pressure Location Davie Sam [facility] 08-28-2024 14:47-0400 Diastolic blood pressure 75 mm[Hg] Davie Vargas [facility] 08-28-2024 14:47-0400 Heart rate 65 /min Davie Vargas [facility] 08-28-2024 14:47-0400 Respiratory rate 16 /min Davie Malkay [facility] 08-28-2024 14:47-0400 Systolic blood pressure 119 mm[Hg] Davie Acey [facility] 06-11-2024 12:48-0400 Diastolic blood pressure 78 mm[Hg] Kashif Kirnus [facility] 06-11-2024 12:48-0400 Heart rate 70 /min Kashif Kirnus [facility] 06-11-2024 12:48-0400 Respiratory rate 18 /min Kashif Kirnus [facility] 06-11-2024 12:48-0400 SaO2% (BldA) [Mass fraction] 97 % Kashif Kirnus [facility] 06-11-2024 12:48-0400 Systolic blood pressure 138 mm[Hg] Kashif Kirnus [facility] 05-30-2024 13:31-0400 Blood Pressure Location Dixon Dubose [facility] 05-30-2024 13:31-0400 Diastolic blood pressure 70 mm[Hg] Dixon Dubose [facility] 05-30-2024 13:31-0400 Heart rate 75 /min Dixon Dubose [facility] 05-30-2024 13:31-0400 Respiratory rate 18 /min Dixon Dubose [facility] 05-30-2024 13:31-0400 SaO2% (BldA) [Mass fraction] 95 % Dixon Dubose [facility] 05-30-2024 13:31-0400 Systolic blood pressure 130 mm[Hg] Dixon Dubose [facility] 04-20-2024 13:17-0400 Diastolic blood pressure 78 mm[Hg] Kashif Kirnus [facility] 04-20-2024 13:17-0400 Heart rate 62 /min Kashif Kirnus [facility] 04-20-2024 13:17-0400 SaO2% (BldA) [Mass fraction] 97 % Kashif Kirnus [facility] 04-20-2024 13:17-0400 Systolic blood pressure 138 mm[Hg] Kashif Kirnus [facility] 03-26-2024 14:30-0400 Diastolic blood pressure 64 mm[Hg] Axel Hernández [facility] 03-26-2024 14:30-0400 Heart rate 50 /min Axel Edgar [facility] 03-26-2024 14:30-0400 Respiratory rate 16 /min Axel Edgar [facility] 03-26-2024 14:30-0400 SaO2% (BldA) [Mass fraction] 98 % Axel Edgar [facility] 03-26-2024 14:30-0400 Systolic blood pressure 128 mm[Hg] Axel Edgar [facility] 03-26-2024 13:31-0400 Heart rate 54 /min Axel Hernández [facility] 03-26-2024 13:31-0400 SaO2% (BldA) [Mass fraction] 97 % Axel Edgar [facility] 03-26-2024 13:31-0400 Respiratory rate 16 /min Axel Edgar [facility] 03-26-2024 13:30-0400 Body temperature 97.34 [degF] Axel Hernández [facility] 03-26-2024 13:29-0400 Blood Pressure Location Axel Edgar [facility] 03-26-2024 13:29-0400 Diastolic blood pressure 70 mm[Hg] Axel Hernández [facility] 03-26-2024 13:29-0400 Mean blood pressure 88 mm[Hg] Axel Hernández [facility] 03-26-2024 13:29-0400 Systolic blood pressure 125 mm[Hg] Axel Hernández [facility] 03-26-2024 13:20-0400 Body temperature 97.52 [degF] Axel Hernández [facility] 03-26-2024 13:20-0400 Diastolic blood pressure 63 mm[Hg] Axel Edgar [facility] 03-26-2024 13:20-0400 Heart rate 54 /min Axel Edgar [facility] 03-26-2024 13:20-0400 Mean blood pressure 77 mm[Hg] Axel Edgar [facility] 03-26-2024 13:20-0400 Respiratory rate 15 /min Axel Edgar [facility] 03-26-2024 13:20-0400 SaO2% (BldA) [Mass fraction] 97 % Axel Edgar [facility] 03-26-2024 13:20-0400 Systolic blood pressure 104 mm[Hg] Axel Edgar [facility] 03-26-2024 13:15-0400 Mean blood pressure 73 mm[Hg] Axel Edgar [facility] 03-26-2024 13:15-0400 Respiratory rate 15 /min Axel Edgar [facility] 03-26-2024 13:10-0400 Mean blood pressure 72 mm[Hg] Axel Edgar [facility] 03-26-2024 13:10-0400 Respiratory rate 11 /min Axel Edgar [facility] 03-26-2024 12:55-0400 Body temperature 97.52 [degF] Axel Edgar [facility] 03-26-2024 12:50-0400 Respiratory rate 1 /min Axel Edgar [facility] 03-26-2024 09:36-0400 Blood Pressure Location Axel Edgar [facility] 03-26-2024 09:36-0400 Mean blood pressure 112 mm[Hg] Axel Hernández [facility] 03-26-2024 09:34-0400 Mean blood pressure 97 mm[Hg] Axel Edgar [facility] 03-26-2024 09:34-0400 Body temperature 97.34 [degF] Axel Edgar [facility] 03-26-2024 09:34-0400 Blood Pressure Location Axel Edgar [facility] 03-26-2024 09:34-0400 Heart rate 50 /min Axel Edgar [facility] 03-06-2024 08:11-0400 Blood Pressure Location Axel Edgar [facility] 03-06-2024 08:11-0400 Diastolic blood pressure 74 mm[Hg] Axel Edgar [facility] 03-06-2024 08:11-0400 Heart rate 56 /min Axel Edgar [facility] 03-06-2024 08:11-0400 Mean blood pressure 98 mm[Hg] Axel Edgar [facility] 03-06-2024 08:11-0400 Systolic blood pressure 147 mm[Hg] Axel Edgar [facility] 03-06-2024 08:11-0400 Heart rate 57 /min Axel Edgar [facility] 03-06-2024 08:11-0400 SaO2% (BldA) [Mass fraction] 98 % Axel Edgar [facility] 03-06-2024 08:10-0400 Blood Pressure Location Axel Edgar [facility] 03-06-2024 08:10-0400 Body temperature 98.06 [degF] Axel Edgar [facility] 03-06-2024 08:10-0400 Diastolic blood pressure 73 mm[Hg] Axel Hernández [facility] 03-06-2024 08:10-0400 Mean blood pressure 92 mm[Hg] Axel Hernández [facility] 03-06-2024 08:10-0400 Systolic blood pressure 129 mm[Hg] Axel Hernández [facility] 03-06-2024 08:10-0400 Respiratory rate 18 /min Axel Hernández [facility] 11-18-2023 11:00-0500 Body height 180.34 cm Jadamary Rene Other [employer] Other 11-18-2023 11:00-0500 Body mass index (BMI) [Ratio] 25.38 kg/m2 Jadamary Rene Other [employer] Other 11-18-2023 11:00-0500 Body temperature 97.6 [degF] Jadamary Rene Other [employer] Other 11-18-2023 11:00-0500 Body weight 82.56 kg Jada Rene Other [employer] Other 11-18-2023 11:00-0500 Diastolic blood pressure 80 mm[Hg] Jada Rene Other [employer] Other 11-18-2023 11:00-0500 Respiratory rate 18 /min Jadamary Rene Other [employer] Other 11-18-2023 11:00-0500 SaO2% (BldA) [Mass fraction] 99 % Jadamary Rene Other [employer] Other 11-18-2023 11:00-0500 Systolic blood pressure 132 mm[Hg] Jada Rene Other [employer] Other 11-02-2023 13:00-0500 Body height 180.34 cm Jada Rene Other [employer] Other 11-02-2023 13:00-0500 Body mass index (BMI) [Ratio] 24.4 kg/m2 Jada Rene Other [employer] Other 11-02-2023 13:00-0500 Body weight 79.38 kg Jada Rene Other [employer] Other 11-02-2023 13:00-0500 Diastolic blood pressure 82 mm[Hg] Jada Rene Other [employer] Other 11-02-2023 13:00-0500 Respiratory rate 18 /min Jada Rene Other [employer] Other 11-02-2023 13:00-0500 SaO2% (BldA) [Mass fraction] 97 % Jada Rene Other [employer] Other 11-02-2023 13:00-0500 Systolic blood pressure 138 mm[Hg] Jada Rene Other [employer] Other 09-21-2023 10:00-0500 Body height 180.34 cm Jada Rene Other [employer] Other 09-21-2023 10:00-0500 Body mass index (BMI) [Ratio] 25.81 kg/m2 Jada Rene Other [employer] Other 09-21-2023 10:00-0500 Body weight 83.96 kg Jadayomi Rene Other [employer] Other 09-21-2023 10:00-0500 Diastolic blood pressure 70 mm[Hg] Jada Rene Other [employer] Other 09-21-2023 10:00-0500 Respiratory rate 18 /min Jada Rene Other [employer] Other 09-21-2023 10:00-0500 SaO2% (BldA) [Mass fraction] 98 % Jada Rene Other [employer] Other 09-21-2023 10:00-0500 Systolic blood pressure 140 mm[Hg] Jada Rene Other [employer] Other 06-16-2023 11:00-0400 Body height 180.34 cm Jada Reen Other [employer] Other 06-16-2023 11:00-0400 Body mass index (BMI) [Ratio] 23.79 kg/m2 Jada Rene Other [employer] Other 06-16-2023 11:00-0400 Body weight 77.38 kg Jada Rene Other [employer] Other 06-16-2023 11:00-0400 Diastolic blood pressure 64 mm[Hg] Jada Rene Other [employer] Other 06-16-2023 11:00-0400 Respiratory rate 18 /min Jada Rene Other [employer] Other 06-16-2023 11:00-0400 SaO2% (BldA) [Mass fraction] 98 % Jada Rene Other [employer] Other 06-16-2023 11:00-0400 Systolic blood pressure 118 mm[Hg] Jada Rene Other [employer] Other Encounters Encounter Date Encounter Type Care Provider Facility Start: 05-13-2026 ambulatory YANIQUE A REYES Facili ty: [facility] Start: 08-09-2025 ambulatory YANIQUE A REYES Facili ty:[facility] Jackie Start: 06-13-2025 ambulatory YANIQUE A REYES Facili ty:[facility] Jackie Start: 06-07-2025 ambulatory YANIQUE A REYES Facili ty:[id number] Start: 06-07-2025 End: 06-07-2025 ambulatory YANIQUE A REYES Facility:[facility] Start: 06-02-2025 End: 06-05-2025 Evaluation and management of inpatient Axel Smalls Tierney DO Work Phone: [facility] Comment on above: Hyponatremia (Primar y Dx) Start: 05-20-2025 End: 05-20-2025 Lab Drop off YANIQUE A REYES [facility] Start: 05-20-2025 End: 05-20-2025 ambulatory Kylah Garcia Facility: [facility] Start: 05-09-2025 End: 05-09-2025 ambulatory Kylah Garcia Facility: [facility] Start: 02-05-2025 End: 02-06-2025 Lab Drop off Kylah Garcia [facility] Start: 02-05-2025 End: 02-06-2025 ambulatory Kylah GarnerShanna Adam Facility:[facility] Start: 01-24-2025 End: 01-24-2025 Lab Drop off Kylahricci Garcia [facility] Start: 01-24-2025 End: 01-24-2025 ambulatory Kylah GarnerShanna Garcia Facility:[facility] Latasha springe Start: 01-09-2025 End: 01-09-2025 Lab Drop off Kylah Garcia [facility] Start: 01-09-2025 End: 01-09-2025 ambulatory Kylah Kelsey Garcia Facility:[facility] Latasha edgar Start: 12-31-2024 End: 12-31-2024 Lab Drop off Kylah GarnerShanna Garcia [facility] Start: 12-31-2024 End: 12-31-2024 ambulatory Kylah GarnerShanna Garcia Facility:[facility] Start: 12-24-2024 End: 12-24-2024 ambulatory Kylah GarnerShanna Garcia Facility:[facility] Latasha springe Start: 12-17-2024 End: 12-17-2024 Lab Drop off Kylah Garcia [facility] Start: 12-17-2024 End: 12-17-2024 ambulatory Kylah Cole Adam Facility:[facility] Start: 12-17-2024 End: 01-22-2025 ambulatory Kylah PatsyShanna Garcia Facility:[id number] Start: 11-28-2024 End: 11-28-2024 Bamboo flowsheet Jelani Chow ACCOUNTING FILE CLERK Work Phone: [facility] Start: 11-28-2024 End: 11-28-2024 Bamboo flowsheet Jelani Chow ACCOUNTING FILE CLERK Work Phone: [facility] Start: 11-28-2024 End: 11-28-2024 Postop follow up visit related to original px Jelani Chow ACCOUNTING FILE CLERK Work Phone: [facility] Comment on above: Status post carpal t unnel release (Primary Dx) Start: 11-28-2024 End: 11-28-2024 ambulatory JELANI CHOW Not Available Start: 11-26-2024 End: 11-26-2024 Bamboo flowsheet Emiliano Escamilla MD Work Phone: [facility] Start: 11-26-2024 End: 11-26-2024 Bamboo flowsheet Emiliano Escamilla MD Work Phone: [facility] Start: 11-26-2024 End: 11-26-2024 Patient encounter procedure Emiliano Escamilla MD Work Phone: [facility] Comment on above: Foreign body of [...] to same day surgery center Axel Hernández [facility] Start: 11-19-2024 End: 11-19-2024 ambulatory Axel Hernández Facility:[facility] Start: 11-13-2024 ambulatory Kylah Garcia Facility :[facility] Jackie Start: 11-12-2024 End: 11-12-2024 Lab Drop off Kylah Garcia [facility] Start: 11-12-2024 End: 11-12-2024 ambulatory Kylah Garcia Facility:[facility] Start: 11-01-2024 End: 11-01-2024 ambulatory Kylah Garcia Facility:[facility] Latasha hernández Start: 10-30-2024 End: 10-30-2024 ambulatory Axel Hernández Facility:[facility] Start: 10-30-2024 End: 10-30-2024 Patient encounter procedure Axel Hernández [facility] Start: 10-03-2024 End: 10-03-2024 Bamboo flowsheet [...] encounter status Axel Hernández DO Work Phone: [facility] Start: 10-03-2024 End: 10-03-2024 ambulatory AXEL HERNÁNDEZ Not Available Start: 09-28-2024 End: 09-28-2024 Bamboo flowsheet Shala Farrell MD Work Phone: [facility] Start: 09-28-2024 End: 09-28-2024 Bamboo flowsheet Shala Farrell MD Work Phone: [facility] Start: 09-28-2024 End: 09-28-2024 Patient encounter procedure Shala Farrell MD Work Phone: [facility] Comment on above: Pain in both upper e xtremities (Primary Dx); Carpal tunnel syndrome, bilateral Start: 09-28-2024 End: 09-28-2024 ambulatory SHALA FARRELL Not Available Start: 09-10-2024 End: 09-10-2024 ambulatory Kylah Garcia Facility: [facility] Start: 08-28-2024 End: 08-28-2024 ambulatory Davie Vargas Facility:[facility] Start: 08-28-2024 End: 08-28-2024 Patient encounter procedure Davie Vargas [facility] [place] Start: 08-20-2024 End: 08-20-2024 Telephone encounter Shala Farrell MD Work Phone: [facility] Start: 08-13-2024 End: 08-13-2024 ambulatory Nathaniel Bonilla MD Facility:[facility] Start: 08-07-2024 End: 08-07-2024 ambulatory Kylah Garcia [facility] Start: 07-31-2024 End: 07-31-2024 ambulatory Kylah Garcia Facility:[facility] Start: 07-24-2024 End: 07-24-2024 ambulatory Kylah Garcia Facility:[facility] Start: 07-23-2024 ambulatory Kylah Garcia Facility :[facility] Start: 07-05-2024 ambulatory Axel Hernández Facility :[facility] Start: 07-03-2024 End: 07-03-2024 ambulatory Kylah Garcia Facility: [facility] Start: 06-20-2024 End: 06-20-2024 ambulatory AXEL HERNÁNDEZ Not Available Start: 06-11-2024 End: 06-11-2024 ambulatory XXXX NONE Facility:[facility] Start: 06-11-2024 End: 06-11-2024 Patient encounter procedure Kashif Barnett [facility] Start: 05-30-2024 End: 05-30-2024 ambulatory Kylah Garcia Facility:[facility] Start: 05-30-2024 End: 05-30-2024 Patient encounter procedure Dixon Dubose [facility] Start: 05-21-2024 End: 05-21-2024 Patient encounter procedure Kashif Barnett [facility] Start: 05-01-2024 End: 05-01-2024 Patient encounter procedure Kashif Barnett [facility] Start: 05-01-2024 End: 05-01-2024 Lab Drop off Kylah Garcia [facility] Start: 04-20-2024 End: 04-20-2024 Patient encounter procedure Kashif Barnett [facility] Start: 04-04-2024 End: 04-04-2024 ambulatory AXEL HERNÁNDEZ Not Available Start: 03-26-2024 End: 03-26-2024 Admission to same day surgery center Axel Hernández [facility] Start: 03-06-2024 End: 03-06-2024 Patient encounter procedure Axel Hernández [facility] Start: 02-15-2024 End: 02-15-2024 ambulatory AXEL HERNÁNDEZ Not Available Start: 02-15-2024 End: 02-15-2024 ambulatory AXEL HERNÁNDEZ Not Available Start: 12-06-2023 End: 12-06-2023 ambulatory Jada Rene Other [employer] Other Start: 12-06-2023 Telephone encounter Jada Rene [facility] Start: 12-02-2023 End: 12-02-2023 ambulatory Jada Rene Other [employer] Other Start: 12-02-2023 Telephone encounter Jada Rene [facility] Start: 12-01-2023 End: 12-01-2023 Lab Drop off Kylah Garcia [facility] Start: 11-18-2023 End: 11-18-2023 ambulatory Jada Rene Other [employer] Other Start: 11-18-2023 Office outpatient vi sit 25 minutes Jadamary Rene [facility] [place] Start: 11-02-2023 End: 11-02-2023 ambulatory Jada Rene [employer] Other Start: 11-02-2023 Office outpatient vi sit 25 minutes Jadamary Rene [facility] [place] Start: 11-02-2023 Telephone encounter Jada Rene [facility] [place] Start: 10-28-2023 End: 10-28-2023 ambulatory Jadamary Rene Other [employer] Other Start: 10-28-2023 Telephone encounter Jada Rene [facility] [place] Start: 09-30-2023 End: 09-30-2023 Nurse Triage Venessa Riggins RN NURSE CONSTRUCTION COST ESTIMATOR Comment on above: Refill Request Start: 09-30-2023 Telephone encounter Jada Rene [facility] [place] Start: 09-21-2023 End: 09-21-2023 ambulatory Jadamary Rene Other [employer] Other Start: 09-21-2023 Office outpatient vi sit 25 minutes Jadamary Rene [facility] [place] Start: 08-29-2023 End: 08-29-2023 ambulatory Jadayomi Rene Other [employer] Other Start: 08-29-2023 Telephone encounter Jada Rene [facility] Start: 08-26-2023 End: 08-26-2023 ambulatory Jada Rene Other [employer] Other Start: 08-26-2023 Telephone encounter Jada Rene [facility] [place] Start: 08-08-2023 End: 08-08-2023 ambulatory Jada Rene Other [employer] Other Start: 08-08-2023 Telephone encounter Jada Rene [facility] Start: 07-27-2023 End: 07-27-2023 ambulatory Jada Rene Other [employer] Other Start: 07-27-2023 Telephone encounter Jada Rene [facility] Start: 06-16-2023 End: 06-16-2023 ambulatory Jada Rene [employer] Other Start: 06-16-2023 Office outpatient ne w 45 minutes Jada Rene [facility] Start: 06-16-2023 Telephone encounter Jada Rene [facility] Procedures Date Procedure Procedure Detail Performing Clinician Start: 06-05-2025 Glucose blood reagen t strip Flaco Ren MD Work Phone: Start: 06-05-2025 Electrolyte panel Deann Carter MD Work Phone: Start: 06-05-2025 Glucose blood reagen t strip Flaco Ren MD Work Phone: Start: 06-05-2025 Basic metabolic pane l calcium total Beto Floridalma DO Work Phone: Start: 06-04-2025 End: 06-04-2025 Electrolyte panel Beto Hedrick DO Work Phone: Start: 06-04-2025 Glucose blood reagen t strip Flaco Ren MD Work Phone: Start: 06-04-2025 Electrolyte panel Rolf Hedrick DO Work Phone: Start: 06-04-2025 Glucose blood reagen t strip Flaco Ren MD Work Phone: Start: 06-04-2025 BASIC METABOLIC PANE L W/ REFLEX TO MG FOR LOW K José Good MD Work Phone: Start: 06-04-2025 Glucose blood reagen t strip Flaco Ren MD Work Phone: Start: 06-04-2025 Glucose blood reagen t strip Flaco Ren MD Work Phone: Start: 06-04-2025 BASIC METABOLIC PANE L W/ REFLEX TO MG FOR LOW K José Good MD Work Phone: Start: 06-04-2025 Glucose blood reagen t strip Flaco Ren MD Work Phone: Start: 06-04-2025 BASIC METABOLIC PANE L W/ REFLEX TO MG FOR LOW K José Good MD Work Phone: Start: 06-04-2025 Ct head/brain w/o contrast material Bisi Vaughn MD Work Phone: Start: 06-04-2025 BASIC METABOLIC PANE L W/ REFLEX TO MG FOR LOW K Bisi Vaughn MD Work Phone: Start: 06-04-2025 Cortisol total Bisi Vaughn MD Work Phone: Start: 06-04-2025 BASIC METABOLIC PANE L W/ REFLEX TO MG FOR LOW K José Good MD Work Phone: Start: 06-04-2025 ARTERIAL BLOOD GAS, POC Beto Hedrick DO Work Phone: Start: 06-04-2025 CALCIUM, IONIC (POC) Da sourav Novelty DO Work Phone: Start: 06-04-2025 CREATININE W/GFR POI NT OF CARE Beto Novelty DO Work Phone: Start: 06-04-2025 ELECTROLYTES PLUS Rolf Hedrick DO Work Phone: Start: 06-04-2025 Gluc bld gluc mntr d ev cleared fda spec home use Beto Hedrick DO Work Phone: Start: 06-04-2025 LACTIC ACID,POINT OF CARE Beto Hedrick DO Work Phone: Start: 06-04-2025 BASIC METABOLIC PANE L W/ REFLEX TO MG FOR LOW K José Good MD Work Phone: Start: 06-03-2025 Glucose blood reagen t strip Beto Hedrick DO Work Phone: Start: 06-03-2025 Electrolyte panel Rolf Hedrick DO Work Phone: Start: 06-03-2025 PREVIOUS SPECIMEN Rolf Hedrick DO Work Phone: Start: 06-03-2025 Glucose blood reagen t strip Beto Hedrick DO Work Phone: Start: 06-03-2025 Glucose blood reagen t strip Beto Hedrick DO Work Phone: Start: 06-03-2025 End: 06-03-2025 Electrolyte panel Beto Hedrick DO Work Phone: Start: 06-03-2025 BASIC METABOLIC PANE L W/ REFLEX TO MG FOR LOW K Adore Cueto TIRE VULCANIZER - ACCOUNTING FILE CLERK Work Phone: Start: 06-03-2025 End: 06-04-2025 Prothrombin time Adore Cueto TIRE VULCANIZER - ACCOUNTING FILE CLERK Work Phone: Start: 06-02-2025 Glucose blood reagen t strip Brigida Pina DO Work Phone: Start: 06-02-2025 Glucose blood reagen t strip Brigida Valeriano Orlop DO Work Phone: Start: 06-02-2025 BASIC METABOLIC PANE L W/ REFLEX TO MG FOR LOW K Leelee Easley TIRE VULCANIZER - MANAGING MANAGER Work Phone: Start: 06-02-2025 End: 06-02-2025 Prothrombin time Leelee Easley TIRE VULCANIZER - MANAGING MANAGER Work Phone: Start: 11-19-2024 [facility] CAPILLARY GLUCO SE POC Axel Hernández DO Work Phone: Start: 11-19-2024 Decompression of med carlos nerve Axel Hernández Start: 03-26-2024 Decompression of med carlos nerve Axel Hernández Decompression of med carlos nerve Axel Hernández 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 Start: 06-12-2025 End: 06-05-2026 Basic metabolic 2000 panel - Serum or Plasma Basic Metabolic Panel Lab Routine Hyponatremia Expected: 06/12/2025, Expires: 06/05/[address] [facility] Comment on above: Expected: 06/12/2025 , Expires: 06/05/2026 Start: 03-29-2025 COVID-19 Vaccine ( season) COVID-19 Vaccine ( season) [facility] Start: 12-26-2024 End: 12-26-2024 Patient encounter procedure 12/26/2024 1:45 PM EST Office Visit [facility] [address] [place] [address] Jelani Chow, CHRISTOPHER [address] [place] [address] [facility] Start: 11-28-2024 End: 11-28-2024 Patient encounter procedure [facility] Comment on above: Arrived Start: 11-26-2024 End: 11-26-2024 Patient encounter procedure 11/26/2024 10:30 AM EST Office Visit [facility] [address] [facility] [place] [address] Emiliano Escamilla MD [address] [facility] [address] [place] [address] Arrived [facility] Comment on above: Arrived Start: 11-14-2024 Annual Wellness Visi t (Medicare Advantage) Annual Wellness Visit (Medicare Advantage) [facility] Start: 10-03-2024 End: 10-03-2025 ECG 12 lead ECG 12 lead ECG Routine Pre-op testing Expected: 10/03/2024 (Approximate), Expires: 10/03/2025 [facility] Work Phone: Comment on above: Expected: 10/03/2024 (Approximate), Expires: 10/03/2025 Start: 10-03-2024 End: 10-03-2024 Patient encounter procedure 10/03/2024 10:45 AM EST Office Visit [facility] [address] [place] [address] Axel Hernández DO [address] [place] [address] Right hand pain (Primary Dx); Arm weakness [facility] Comment on above: Right hand pain (Holly ayaan Dx); Arm weakness Start: 07-15-2024 Influenza vaccination Influenza Vacc ine (#1) [facility] Start: 07-15-2023 Influenza vaccination Influenza Vacc ine (#1) [facility] Start: 11-14-2022 Advance Directive Discussion Advance Directive Discussion [facility] Start: 11-14-2022 Depression Assessment Depression Ass essment [facility] Start: 2017 Respiratory Syncytia l Virus (RSV) or age 60 yrs+ (1 - 1-dose 75+ series) Respiratory Syncytial Virus (RSV) or age 60 yrs+ (1 - 1-dose 75+ series) [facility] Start: 05-18-2016 Pneumococcal Vaccine : 65+ (2 - PPSV23 or PCV20) Pneumococcal Vaccine: 65+ (2 - PPSV23 or PCV20) [facility] Start: 03-31-2016 Pneumococcal Vaccine : 65+ Years (2 of 2 - PPSV23 or PCV20) Pneumococcal Vaccine: 65+ Years (2 of 2 - PPSV23 or PCV20) [facility] Start: 03-24-2016 Hepatitis B surface antibody level LDL Cholesterol [facility] Start: 09-24-2015 Hemoglobin A1c/Hemoglobin.total in Blood HbA1C [facility] Start: 08-01-2015 3 comp foot exam completed Diabetic Foot Exam [facility] Start: 07-25-2015 Hepatitis B screening Urine Albumin:Creatinine Ratio [facility] Start: 02-01-2015 Urine microalbumin profile DTaP,Tdap,Td Vaccine (1 - Tdap) [facility] Start: 10-24-2013 Shingles vaccine (2 of 3) Shingles vaccine (2 of 3) [facility] Start: 10-24-2013 Shingrix Vaccine (2 of 3) Shingrix Vaccine (2 of 3) [facility] Start: 09-14-2012 Hepatitis C antibody , confirmatory test Dilated Retinal Exam [facility] Start: 2002 RSV Vaccine (1 - 1-d ose 60+ series) RSV Vaccine (1 - 1-dose 60+ series) [facility] Start: 1961 DTaP/Tdap/Td vaccine (1 - Tdap) DTaP/Tdap/Td vaccine (1 - Tdap) [facility] Start: 1960 Urine screening for protein Diabetic Alb to Cr ratio (uACR) test [facility] Start: 1954 Depression Screen [facility] Screen [facility] Start: 1952 Lipid panel Lipids [facility] Start: 1942 Covid-19 Vaccine (#1) Covid-19 Vacci ne (#1) [facility] End: 06-13-2025 Basic metabolic 2000 panel - Serum or Plasma Basic Metabolic Panel Lab Routine Tomorrow AM for 10 Occurrences starting 06/04/2025 until 06/13/2025, 1 completed [facility] [employer] Comment on above: Tomorrow AM for 10 O ccurrences starting 06/04/2025 until 06/13/2025, 1 completed Continuous pulse oximetry Pulse oximetry, continuous Respiratory Care Routine Every 4hr until discontinued starting 06/02/2025 [facility] Comment on above: Every 4hr until disc ontinued starting 06/02/2025 End: 06-08-2025 Electrolyte Panel Electrolyte Panel Lab Routine Every 8 Hours (Lab) for 3 Days starting 06/05/2025 until 06/08/2025, 1 completed [facility] Work Phone: Comment on above: Every 8 Hours (Lab) for 3 Days starting 06/05/2025 until 06/08/2025, 1 completed Glucose [Mass/volume ] in Serum or Plasma [facility] Comment on above: As Needed until disc ontinued starting 06/02/2025 4X Daily (AC & HS) u ntil discontinued starting 06/02/2025 Nasal Cannula Oxygen Nasal Cannu la Oxygen Respiratory Care Routine Daily until discontinued starting 06/05/2025 [facility] Comment on above: Daily until disconti nued starting 06/05/2025 Oxygen therapy [[facility] Data Set] Initiate Oxygen Therapy Protocol Respiratory Care Routine As Needed until discontinued starting 06/02/2025 [facility] Work Phone: Comment on above: As Needed until disc ontinued starting 06/02/2025 End: 06-12-2025 Protime-INR Protime-INR Lab Routine Daily for 8 Days starting 06/05/2025 until 06/12/2025, 1 completed [facility] Comment on above: Daily for 8 Days sta rting 06/05/2025 until 06/12/2025, 1 completed End: 06-02-2025 Respiratory care evaluation only Respiratory care evaluation only Respiratory Care Routine One Time for 1 Occurrences starting 06/02/2025 until 06/02/2025 [facility] Comment on above: One Time for 1 Occur rences starting 06/02/2025 until 06/02/2025 Govind Ruizi c Immunizations Immunization Date Immunization Notes Care Provider [facility] 09-29-2024 influenza virus vaccine, unspecified formulation Axel Hernández DO Work Phone: [facility] 09-21-2023 Prevnar 20 Jadamary Rene Other [facility] 08-19-2023 Flu Shot - Documentation Purposes Only Jada Rene Other [employer] Other 08-19-2023 influenza virus vaccine, unspecified formulation Kylah Garcia [facility] 08-14-2022 influenza, seasonal, injectable Jadamary Rene Other [employer] Other 03-31-2015 pneumococcal conjuga te vaccine, 13 valent Jadayomi Rene Other [facility] 08-02-2014 influenza, high dose seasonal, preservative-free Venessa Riggins RN [facility] 08-02-2014 influenza virus vaccine, unspecified formulation Venessa Riggins RN [facility] 08-29-2013 zoster vaccine, live Venessa terrell RN [facility] 08-09-2013 influenza virus vaccine, unspecified formulation Venessa Riggins RN [facility] 07-31-2012 influenza virus vaccine, unspecified formulation Venessa Riggins RN [facility] Work Phone: 03-07-2012 tetanus and diphther ia toxoids, adsorbed, preservative free, for adult use (2 Lf of tetanus toxoid and 2 Lf of diphtheria toxoid) Venessa Riggins RN [facility] Work Phone: 08-07-2011 influenza virus vaccine, unspecified formulation Venessa Riggins RN [facility] Work Phone: NEGATED: Highlighted row has not occurred!08-28-2024 influenza virus vaccine, unspecified formulation Davie Vargas [facility] [place] Payers Date Payer Category Payer Private Health Insurance [id number] 2025 Private Health Insurance [id number] 2023 Medicare (Managed Care) [employer] [id number] 2023 Unknown [employer] HEALTH D [facility] [id number] 2023-Present [address] [place] [id number] [id number]. [id number] 2023 Unknown [id number] 2.16.840.1.925435.19 2023 Medicare [id number] 2.16.840.1.585665.19 2023 Self-pay 2023 Medicare [id number]. 1.13.159.2. [id number] 1942 Unknown [id number] 2.16.840.1.329508.3.579.2. 196 1942 Unknown [id number] 2.16.840.1.742435.3.579.2. 727 1942 Unknown [id number] 2.16.840.1.807809.3.579.2. 727 1942 Unknown [id number] 2.16.840.1.169153.3.579.2. 727 1942 Unknown [id number] 2.16.840.1.397008.3.579.2. 727 1942 Unknown [id number] 2.16.840.1.710266.3.579.2. 1259 1942 Unknown [id number] 2.16.840.1.793984.3.579.2. 1258 1942 Unknown [id number] 2.16.840.1.806960.3.579.2. 1258 1942 Unknown [id number] 2.16.840.1.910382.3.579.2. 1258 1942 Unknown [id number] 2.16.840.1.571157.3.579.2. 1258 1942 Unknown [id number] 2.16.840.1.274880.3.579.2. 1258 1942 Unknown [id number] 2.16.840.1.679607.3.579.2. 1258 1942 Unknown [id number] 2.16.840.1.589499.3.579.2. 1258 1942 Unknown [id number] 2.16.840.1.405934.3.579.2. 1258 1942 Unknown [id number] 2.16.840.1.406052.3.579.2. 1942 Unknown [id number] 2.16.840.1.502240.3.579.2. 1942 Unknown [id number] 2.16.840.1.549412.3.579.2. 1942 Unknown [id number] 2.16.840.1.245871.3.579.2. 1942 Unknown [id number] 2.16.840.1.655329.3.579.2. 1942 Unknown [id number] 2.16.840.1.708869.3.579.2. 1942 Unknown [id number] 2.16.840.1.825182.3.579.2. 1942 Unknown [id number] 2.16.840.1.263105.3.579.2. 1942 Unknown [id number] 2.16.840.1.350446.3.579.2 1942 Unknown [id number] 2.16.840.1.309854.3.579.2. 1942 Unknown [id number] 2.16.840.1.341532.3.579.2 1942 Unknown [id number] 2.16.840.1.071185.3.579.2 1942 Unknown [id number] 2.16.840.1.192692.3.579.2 1942 Unknown [id number] 2.16.840.1.326631.3.579.2 1942 Unknown [id number] 2.16.840.1.737203.3.579.2 1942 Unknown [id number] 2.16.840.1.895927.3.579.2 1942 Unknown [id number] 2.16.840.1.039158.3.579.2 1942 Unknown [id number] 2.16.840.1.960157.3.579.2 1942 Unknown [id number] 2.16.840.1.851605.3.579.2 1942 Unknown [id number] 2.16.840.1.863029.3.579.2 1942 Unknown [id number] 2.16.840.1.550862.3.579.2 1942 Unknown [id number] 2.16.840.1.036091.3.579.2 1942 Unknown [id number] 2.16.840.1.895923.3.579.2. 727 1942 Unknown [id number] 2.16.840.1.032816.3.579.2. 727 1942 Unknown [id number] 2.16.840.1.532958.3.579.2. 727 1942 Unknown [id number] 2.16.840.1.014796.3.579.2. 727 1942 Unknown [id number] 2.16.840.1.116257.3.579.2. 727 1942 Unknown [id number] 2.16.840.1.365896.3.579.2. 727 1942 Unknown [id number] 2.16.840.1.795076.3.579.2. 727 1942 Unknown [id number] 2.16.840.1.319902.3.579.2. 175 1942 Unknown [id number] 2.16.840.1.010681.3.579.2. 727 1942 Unknown [id number] 2.16.840.1.959210.3.579.2. 727 1942 Unknown [id number] 2.16.840.1.013962.3.579.2. 727 Medicare [id number] 2.16.840.1.840712.19 Unknown [id number] 2.16.840.1.896502.3.579.2. 531 Unknown [id number] 2.16.840.1.359813.3.579.2. 531 Social History Date Type Detail Facility Start: 06-20-2024 End: 06-02-2025 Sex Assigned At [facility] Start: 12-01-2023 End: 06-02-2025 Tobacco smoking status MAIS Never smoked tobacco [facility] Comment on above: denies use. Start: 06-28-2022 Alcohol intake Current drinke r of alcohol (finding) [facility] Start: 06-28-2022 End: 06-02-2025 Alcohol intake [facility] Start: 1940 Sex Assigned At Not on file [facility] Tobacco [facility] status [facility] [place] Comment on above: denies use. Start: 02-15-2024 End: 06-02-2025 Tobacco use and exposure Smokeless tobacco non-user [facility] Sexual Orientation [facility] Start: 03-27-2015 Sex Male (finding) [facility] Start: 06-02-2025 Alcoholic beverage intake Lifetime non-drinker (finding) [facility] Has the [employer], or water [employer] threatened to shut off services in your home in past 12Mo No [facility] [employer] (I/We) worried [facility] (my/our) food would run out before (I/we) got money to buy more. Never true [facility] Medical Equipment Procedure Code Equipment Code Equipment Origin al Text Equipment Identifier Dates Test blood sugar(s) 2 times daily. Dx: non. Insulin: No dx 250.00 Start: 08-24-2013 Comment on above: Test blood sugar(s) 2 times daily. Dx: non. Insulin: No dx 250.00 Functional Status Date Assessment Result Facility 10-30-2024 Functional Status No [facility] 08-28-2024 Functional Status N/A [facility] [place] 06-11-2024 Functional Status N/A [facility] 05-30-2024 Functional Status No [facility] 04-20-2024 Functional Status N/A [facility] 03-06-2024 Functional Status No [facility] Clinical Notes 03-10-2010 to 06-07-2025 Flip Dubose RN - 06/05/2025 7:02 PM Flip Call RN - 06/05/2025 5:58 PM Milagro Foster - 06/05/2025 5:56 PM Starr Gordillo [facility] - 06/05/2025 11:30 AM [facility] Instructions Note Date & Type Note Facility 06-07-2025 Note Patient Education Nephrology Hyponatremia Hyponatremia is when the amount of [...] Follow these instructions at home: ??? Take mucq-xkz-ygifcps and prescription medicines only as told by [...] provider. Document Revised: 05/11/2022 Document Reviewed: 05/11/2022 [employer] Patient Education ? 2023 [employer]. [facility] 06-05-2025 History of Present illness Narrative Pt discharge- pt taken downstairs by wheelchair by son and by car [facility] . Son given med s, discharge instructions . Questions answered Pt status- neuro ACCOUNTING FILE CLERK Nicole Lencho called me in MICU few hrs ago. . Nicole spoke with Gladys , Kishore by phone. . Kishore is adament, despite Startex mild confusion, that she and her son want to drive Alexx back home to [place] to care for him at home tonight CLINICAL PHARMACY NOTE: MEDS TO BEDS Total # of Prescriptions Filled: 2 The following medications were delivered to the patient: Cephalexin 500mg Lisinopril 10mg Additional Documentation: delivered to patient in room 3008 06/05 at 5:15pm. Co-pay $0.71 srivastava. Pharmacy Note Warfarin Consult follow-up Recent Labs 06/05/25 0449 INR 1.9 Recent Labs 06/02/25 1308 06/03/25 0618 HGB 12.3* 12.3* HCT 36.5* 35.2* PLT 147 See Reflexed IPF Result Warfarin dose SHUTDOWN PLANNER: 5 mg MWF and 2.5 mg all other days Indication: Afib Goal INR: 2-3 Current warfarin drug-drug interactions: cephalexin, pravastatin, levothyroxine Date INR Dose 06/02 1.9 2.5 mg 06/03 1.7 Per MAR, 5 mg dose was ordered but not administered d/t pt status 06/04 1.8 5 mg 06.05 1.9 5 mg Notes: -INR remains subtherapeutic -Coumadin 5 mg this evening to outpatient therapy Will continue to follow. Starr Jackman PharmD [facility] 06/05/2025 11:23 AM Physical Therapy Facility/Department: [facility] 3- MICU Physical Therapy Initial Evaluation Patient Name: Dariel Zabala : 1940 Date of Service: 06/05/2025 recurrent epistaxis s/p fall Past Medical History: has a past medical history of Atrial fibrillation (HCC), Diabetes (HCC), High cholesterol, Hyponatremia, Hypothyroidism, Lumbar spondylolysis, and Syncope. Past [...] reach, Gait belt, Left in chair [facility] Basic Mobility - Inpatient How much help is needed turning from your back to your side while in a flat bed without using bedrails?: None How much help is needed moving from lying on your back to sitting on the side of a flat bed without using bedrails?: None How much help is needed moving to and from a bed to a chair?: None How much help is needed standing up from a chair using your arms?: None How much help is needed walking in hospital room?: A Little How much help is needed climbing 3-5 steps with a railing?: A Little [facility] In[facility] : [facility] T-Scale Score : 53.28 Mobility Inpatient CMS 0-100% Score: 20.91 Mobility Inpatient CMS G-Code Modifier : CJ Restrictions/Precautions Restrictions/Precautions Activity [...] Level of Assist for Transfers: Independent Active Private Wealth Advisor: Yes Mode of Transportation: Truck Occupation: Retired [...] Minutes Timed Code Treatment Minutes: 10 Minutes Images from the original note were not [...] his hyponatremia which he was not taking while in the hospital. Pt is currently asymptomatic. OBJECTIVE CURRENT TEMPERATURE: Temp: 97.5 F (36.4 C) MAXIMUM TEMPERATURE OVER 24HRS: Temp (24hrs), Av.7 F (36.5 C), Min:97.5 F (36.4 C), Max:98.1 F (36.7 C) CURRENT RESPIRATORY RATE: Respirations: 14 CURRENT PULSE: [...] tolvaptan and consider starting him on urea 15 g daily from tomorrow 2. Dowd catheter to be removed. 3. Electrolyte panel Q8 hr 4. BMP in the morning 5. Monitor I/O's 6. Will continue to follow 7. Ok to transfer out of the ICU when a bed is available. 8. Please wait for attending attestation. Deann Carter MD Internal Medicine Resident, PGY-2 [place], [place] 06/05/2025,10:28 AM Attending Physician Statement I have discussed the care of Dariel Zabala, including pertinent history and exam findings with [...] to do so. Jourdan Guan MD , MD INTENSIVE CARE UNIT Resident Physician Progress Note Patient - Dariel Zabala Date of Admission - 06/02/2025 10:01 AM Date of Evaluation - 06/05/2025 Room and Bed Number - 3008/3008- Hospital Day - 3 SUBJECTIVE: HISTORY OF PRESENT ILLNESS: Dariel Zabala is a 85 y.o. with past medical history of A-fib on Coumadin, hypertension, type 2 diabetes, BPH, SIADH, hyponatremia, hypothyroidism who initially presented as a transfer from [facility] facility for recurrent epistaxis after a fall which resulted in nasal bone fracture. Patient initially presented to yesterday and was treated with Afrin and nasal pressure, patient was discharged home with ENT follow-up. When patient returned home he blew his nose and resulted in brisk bleeding from the left nare prompting him to return to the ER yesterday evening. He had bilateral nasal packing with Rhino Rocket's placed and was transferred to [facility] for ENT evaluation. Patient was seen by [...] hyponatremia. Patient does take salt tabs 1 g 3 times daily at home, this was increased to 2 g today by nephrology with fluid restriction of 1.2 L. Repeat sodium today was 117, nephrology started patient on 3% saline infusion and recommended transfer to medical ICU for further management. OVERNIGHT EVENTS: NO overnight acute events TODAY: Patient is alert, awake, oriented, AO x 3, hemodynamically stable, saturating appropriately on room air, no concerns of bleeding UO: 3.7 lit [...] % -- 06/05/25 0400 (!) 114/47 98.1 F (36.7 C) Axillary 66 12 98 % 83.7 kg [...] 13 -- -- 06/05/25 0000 -- 97.5 F (36.4 C) Axillary 57 12 95 % -- 06/04/25 2330 -- -- -- 52 13 95 % -- Last Body weight: Wt Readings from Last 3 Encounters: 06/05/25 83.7 kg (184 lb 8.4 oz) Body Mass Index : Body mass index is 26.48 kg/m . Tmax over 24 hours: Temp (24hrs), Av.8 F (36.6 C), Min:97.5 F (36.4 C), Max:98.1 F (36.7 C) Ins/Outs: In: 480 [P.O.:480] Out: 3760 [Urine:3760] [...] I have discussed the care of Dariel Zabala, including pertinent history and exam findings, with the resident. I have seen and examined the patient and the rubin elements of all parts of the encounter have been performed by me. I agree with the assessment, plan and orders as documented by the resident with additions . Dw nephrology Ok to dc Please note that this chart was generated using voice recognition Ambature dictation software. Although every effort was made to ensure the accuracy of this automated harvest manager, some errors in harvest manager may have occurred. Pharmacy Note Warfarin Consult follow-up Recent Labs 06/04/25 1423 INR 1.8 Recent Labs 06/02/25 1308 06/03/25 0618 HGB 12.3* 12.3* HCT 36.5* 35.2* PLT 147 See Reflexed IPF Result Warfarin dose SHUTDOWN PLANNER: 5 mg MWF and 2.5 mg all [...] Will continue to follow. Geo Rehman, PharmD ENT/OTOLARYNGOLOGY SUBSEQUENT CARE PROGRESS NOTE REASON FOR CARE: epistaxis HISTORY OF PRESENT ILLNESS: Dariel Zabala is a 85 y.o. who is being [...] risk factors: None IMPRESSION AND RECOMMENDATIONS: Dariel Zabala is a 85 y.o. male with epistaxis [...] MIRELES MD Pediatric Otolaryngology-Head and Neck Surgery [facility] Otol[facility]ology group Office ph# [phone] Also available in [facility] Note Warfarin Consult follow-up Recent Labs 06/03/25 0618 INR 1.7 Recent Labs 06/02/25 1308 06/03/25 0618 HGB 12.3* 12.3* HCT 36.5* 35.2* PLT 147 See Reflexed IPF Result Target INR range: 2-3 Current warfarin drug-drug interactions: n/a Date INR Dose 06/02 1.9 2.5mg 06/03 1.7 Notes: No current bleeding. Will give home dose of 5mg today. Daily PT/INR while inpatient. Rowena Duong PharmD 06/03/2025 11:30 AM Images from the original note were not included. [facility] Office: [phone] Viktor Monet DO, Jermaine Gustafson DO, Brigida Pina DO, Jonah Cornelius DO, Layne Jiménez MD, Ashley Miller MD, Pierre Murillo MD, Gabbi Corado MD, Panfilo Borges MD, Sandy Gavin MD, Michael Moy MD, Aleksandra Rhoades DO, Lizbet Bryson MD, Pardeep Marroquin MD, Axel Monet DO, Hallie Dotson MD, Flip Cifuentes DO, Kristy Ren MD, Florence Iyer MD, Gianna Garber MD, Diaz Norris MD, Francy Johnson MD, Eunice Pedroza MD, Mary Garcia MD, Pollo Rodríguez MD, Radha Becerra MD, Beto Hedrick DO, Marisela Kirkpatrick MD, Paulo Mattson DO, Binh Bernstein MD, Aleksandra Duckworth MD, Dang Duckworth MD, Tiffany Fracnis MD, Valerie Trivedi, MANAGING MANAGER, Keren Gutierrez, MANAGING MANAGER, Beto Guzman, MANAGING MANAGER, Kemi Hdz, [facility], Janelle Luna, MANAGING MANAGER, Celena Johnson, MANAGING MANAGER, Annia Rogers, MANAGING MANAGER, Christina Cuevas, MANAGING MANAGER, Marline Vila, PA-C, Adore Cueto, MANAGING MANAGER, Emily Chiang, MANAGING MANAGER, Maria Elena De La Torre, MANAGING MANAGER, Venessa Mitchell, MANAGING MANAGER, Rush Peters, PA-C, Rachel Nascimento, PA-C, Itzel Salazar, MANAGING MANAGER, Edwina Cole, [facility], China Castillo, MANAGING MANAGER, Leelee Easley, MANAGING MANAGER [facility] IN-PATIENT SERVICE [facility] Progress Note 06/03/2025 8:19 AM Name: Dariel Zabala Acct: [id number] Room: [address] [place] [address] Day: 1 Admit Date: 06/02/2025 10:01 AM [...] history of atrial fibrillation on warfarin, hypertension, type 2 diabetes, SIADH initially presented to [place] emergency department for nosebleeding after mechanical fall out of a chair. CT scan reportedly showed nasal bone fracture. He was transferred to [place] for ENT evaluation. ENT deflated nasal packings [...] history of Atrial fibrillation (HCC), Diabetes (HCC), High cholesterol, Hyponatremia, Hypothyroidism, Lumbar spondylolysis, and Syncope. Social History: reports that he has never smoked. He has never used smokeless tobacco. He reports that he does not drink alcohol and does not use drugs. Family History: History reviewed. No pertinent family history. Vitals: BP (!) 145/69 Pulse 57 Temp 98 F (36.7 C) Resp 19 Ht 1.778 m (5' 10 ) Wt 79.3 kg (174 lb 13.2 oz) SpO2 100% BMI 25.08 kg/m Temp (24hrs), Av.8 F (36.6 C), Min:97.3 F (36.3 C), Max:98 F (36.7 C) Recent Labs 06/02/25 1348 06/02/25 1613 06/02/25 [...] , PHART , PH , POCPCO2 , KSJ4GSP , PCO2 , POCPO2 , PO2ART , PO2 , POCHCO3 , NIN4WNA , HCO3 , NBEA , PBEA , BEART , BE , THGBART , THB , SBA9VDC , AEKP0SRR , N4IRXPTH , O2SAT , FIO2 No results found [...] levothyroxine Beto Hedrick DO 06/03/2025 8:19 AM ENT/OTOLARYNGOLOGY SUBSEQUENT CARE PROGRESS NOTE REASON FOR CARE: epistaxis HISTORY OF PRESENT ILLNESS: Dariel Zabala is a 85 y.o. who is being [...] risk factors: None IMPRESSION AND RECOMMENDATIONS: Dariel Zabala is a 85 y.o. male with epistaxis and nasal trauma. Plan: Nasal fracture complicated by epistaxis and aggravated by Coumadin use. No bony stepoff, nasal reduction unlikely to be needed. Nasal packs removed at morning rounds, monitor for recurrent bleeding. If none- ok for discharge home. MORGAN DAIGLE MD Pediatric Otolaryngology-Head and Neck Surgery [facility] Otolaryngology group Office ph# [phone] Also available in [facility] Note Warfarin Consult Dariel Zabala is a 85 y.o. male for whom pharmacy has been consulted to manage warfarin therapy. Consulting Physician: Adore Cueto APRN - CHRISTOPHER Reason for Admission: Mechanical fall resulting in nasal bone fracture and recurrent epistaxis Warfarin dose prior to admission: 2.5mg Tuesday, Tuesday, , Tuesday and 5 mg [facility]. Warfarin indication: afib Target INR range: 2-3 Past Medical History: Diagnosis Date Atrial fibrillation (HCC) Diabetes (HCC) High cholesterol Hyponatremia Hypothyroidism Lumbar spondylolysis Syncope Recent Labs 06/02/25 1308 INR 1.9 Recent Labs 06/02/25 1308 HGB 12.3* HCT 36.5* PLT 147 Current warfarin drug-drug interactions: cephalexin/acetaminophen/pravast atin Date INR Dose 06/02 1.9 2.5 mg Daily PT/INR while inpatient. Due to no current bleed, plan for warfarin 2.5 mg x 1 dose Thank you for the consult. Will continue to follow. Juju Garcia, Love 06/02/2025 2:31 PM ENT at bedside, removed air from rhinorockets. Order received to inflate and page him if bleeding occurs. Pt arrived from via [facility]. Pt A&Ox4, admission database complete. Mediations reconciled. Pt put on telemetry and continuous pulse ox. Vitals stable. Bilat rhino rockets in place. No active epistaxis at this time. Primary team made aware of arrival. Boring Machine Operator Double End called pt's to make her aware if the transfer, no answer left message. documented in this encounter [facility] 06-05-2025 Hospital course Narrative Images from the original note were not included. [facility] Department of Internal Medicine - Critical Care Service INPATIENT DISCHARGE SUMMARY PATIENT IDENTIFICATION: NAME: Dariel Zabala : 1940 Acct: [id number] Admit Date: 06/02/2025 Discharge date: No discharge date for patient encounter. Attending Provider: Flaco Ren MD Principal Problem: [...] chief complaint on file. Hospital Course Dariel Zabala is a 85 y.o. with past medical history of A-fib on Coumadin, hypertension, type 2 diabetes, BPH, SIADH, hyponatremia, hypothyroidism who initially presented as a transfer from outlying facility for recurrent epistaxis after a fall which resulted in nasal bone fracture. Patient initially presented to yesterday and was treated with Afrin and nasal pressure, patient was discharged home with ENT follow-up. When patient returned home he blew his nose and resulted in brisk bleeding from the left nare prompting him to return to the ER yesterday evening. He had bilateral nasal packing with Rhino Rocket's placed and was transferred to [facility] for ENT evaluation. Patient was seen by [...] hyponatremia. Patient does take salt tabs 1 g 3 times daily at home, this was increased [...] Hospital Acquired Infections: None PATIENT'S DISCHARGE CONDITION: PATIENT/FAMILY INSTRUCTIONS: Current Discharge Medication List CONTINUE [...] 1 weeks with PCP, in 1 weeks wastewater engineer Time Spent on discharge is more than 15 minutes in the examination, evaluation, counseling and review of medications and discharge plan. Pepito Grant MD Internal Medicine Resident Critical Care Service Cosigned by Flaco Ren MD at 06/05/2025 5:16 PM EDT documented in this encounter [facility] 06-05-2025 Hospital Discharge instructions Pepito Grant MD - 06/05/2025 12:05 PM [...] 2-3 Please follow-up with your PCP and wastewater engineer (kidney doctor )for continued care Please go to the nearest ER if you have worsening of current symptoms or started experiencing new symptoms like shortness of breath, chest pain, palpitations, dizziness, loss of consciousness, any bleed from the nose for further evaluation management documented in this encounter [facility] 05-20-2025 Note Nurse Consultation N ote Reason [...] Recorded influenza virus vaccine, inactivated 08/02/2014 Recorded [facility] 05-09-2025 Note Patient Education Cardiovascular Atrial Fibrillation [...] these instructions at home: Medicines ??? Take zuwc-fbm-ygcbjnq and prescription medicines only as told by [...] provider. Document Revised: 07/20/2023 Document Reviewed: 07/20/2023 Tutorspree Patient Education ? 2023 BooknGo. Caregiving Fall Prevention in the Home, Adult Falls can cause injuries and can happen to people of all ag (more content not included)... [facility] 12-31-2024 Note Nurse Consultation N ote Reason [...] Recorded influenza virus vaccine, inactivated 08/02/2014 Recorded [facility] 12-24-2024 Note Patient Education Cardiovascular Atrial Fibrillation [...] signals of the heart. ??? An ambulatory post graduate intern to record your heart's activity for a [...] main warning s (more content not included)... [facility] 11-28-2024 History of Present illness Narrative Images from the original note were not included. HISTORY OF PRESENT ILLNESS: Dariel Zabala is an 84 y.o. @ male. 1ST PO LT CTR 11/19/24 (9 DAYS) @ [facility] PAIN DIFFUSE IN HAND/WRIST. KEEPS COVERED WITH [...] develop for requiring urgent evaluation. Jelani Chow APRN-AVELINA documented in this encounter [facility] 11-26-2024 History of Present illness Narrative Images from the original note were not included. Subjective Patient ID: Dariel Zabala is a 84 y.o. male who presents for Ear Problem (Hearing aid battery in ear.) Pt seen in [facility] last Tuesday and DARNELL battery noted in RT EAC No family history on file. Active Ambulatory Problems Diagnosis Date Noted ASCVD (arteriosclerotic cardiovascular disease) ([facility]/HCC) 11/26/2024 Atrial fibrillation (CMS/HCC) 08/22/2014 Back spasm 11/26/2024 Benign hypertension (CMS/HCC) 11/26/2024 Body mass index (BMI) of 25.0-25.9 in adult 11/26/2024 Benign prostatic hyperplasia 11/26/2024 Carotid artery occlusion 11/26/2024 Carpal tunnel syndrome 08/23/2007 Cervical disc disease with myelopathy 2011 Diabetes mellitus ([facility]/HCC) 11/26/2024 ED (erectile dysfunction) 11/26/2024 Encounter for surveillance of abnormal nevi 11/26/2024 Erectile dysfunction due to arterial insufficiency 11/26/2024 Fall at home 11/26/2024 Generalized osteoarthritis 09/12/2012 Hard of hearing 11/26/2024 Resolved Ambulatory Problems Diagnosis Date Noted No Resolved Ambulatory Problems No Additional Past Medical History Past Surgical History: Procedure Laterality Date CARPAL TUNNEL RELEASE NECK SURGERY TRIGGER FINGER RELEASE Right 03/26/2024 [facility] () No Known Allergies Current Outpatient Medications on [...] NOSTRIL ONCE DAILY AT BEDTIME [DISCONTINUED] HYDROcodone-acetaminophen ([place]) 5-325 MG tablet [DISCONTINUED] tiZANidine (Zanaflex) 4 [...] Dr Garcia notified. documented in this encounter [facility] 11-19-2024 Note Progress Note-Physic carlos Patient: DARIEL ZABALA Age: 84 years Sex: Male : 1940 Associated Diagnoses: None Author: Carmine COHN, Chau Pineda Postoperative Information Postoperative disposition: Postoperative disposition: To PACU. Optimetrix number: Optimetrix number [id number]. Anesthetic utilized: General. Health Status Allergies: Allergic [...] when meets criteria ( To home ). [facility] Comment on above: Result Comment: Elec tronically Signed By: Chau Lou MD\.br\Date and Time Signed: 11/19/24 15:19 EST 11-19-2024 Evaluation + Plan note Extrac bijal from: Title:ANES Post-operative Note---General Author: Chau Lou MD Date:11/19/24 Plan Transfer/Discharge: Transfer/Discharge Discharge when meets criteria ( To home ). Extracted from: Title:ANES Pre-operative Note 2022 Author:Chau Goode Date:11/19/24 Plan [place] [employer] of Anesthesiologists (ASA) physical status classification: Class III. Anesthetic Preoperative Plan: Anesthesia General. Future Appointments Appointment Date:12/12/2024 10:15:00 AM Scheduled Provider:Dixon Dubose PA-C [facility] Type:Cardiology Follow Up (FT) Appointment Date:05/02/2025 08:00:00 AM Scheduled Provider: Location:[facility] Appointment Type:FM Medicare Wellness Subsequent Future Scheduled Tests Laboratory* Basic Metabolic Panel 11/13/24 [facility] 01-06-2025 NotePatient Education - Text [place], [place] [facility] CARPAL TUNNEL RELEASE INSTRUCTIONS [...] and needles??? to resolve. Patient Signature Axel SerinaShanna Hernández, DO [facility] [address] [place] [address] Reviewed: 04-22[facility]01-06-2025 NoteProgress Note-Physician Patient: DARIEL ZABALA Age: 84 [...] daily, # 90 tab(s), Refills(s) 0, [id number] 178, cm, 06/11/24 12:53:00 EDT, Height/Length Dosing, 82, kg, 06/11/2412:56:00 EDT, Weight Dosing Sodium Chloride 1000 mg oral tablet, soluble: See Instructions, 30 tab(s), Refill(s) 0, Take one tablet daily, [id number] 178.6, cm, 11/01/24 9:21:00 EST, Height/Length Dosing, 81.3, kg, 11/01/24 9:21:00 EST, Weight Dosing Synthroid 25 mcg(0.025 mg) Tab: See Instructions, TAKE 1 TABLET DAILY ON AN EMPTY STOMACH, # 3 tab(s), Refills(s) 0, [id number] 178, cm, 08/07/24 10:59:00 EDT, Height/Length Dosing, 78.2, kg, 08/07/24 10:59:00 EDT, Weight Dosing atenolol 25 mg Tab: See Instructions, take 1/2 tab daily, # 90 tab(s), Refills(s) 1, Pharmacy: [facility], 178, cm, 09/10/24 13:01:00 EDT, Height/Length Dosing, 80.1, kg, 09/10/24 13:01:00 EDT, Weight Dosing finasteride 5 mg Tab: 5 mg = 1 tab(s), Oral, Daily, # 90 tab(s), Refills(s) 1, Pharmacy: [facility]/pharmacy #[id number], 178.6, cm, 11/01/24 9:21:00 EST, Height/Length Dosing, 81.3, kg, 11/01/24 9:21:00 EST, Weight Dosing fluticasone Nasal 0.05 mg/inh [place]: See Instructions, 48 mL, Refill(s) 1, USE 1 SPRAY IN EACH NOSTRIL TWICE A DAY, [id number], 178, cm, 08/28/24 14:50:00 EDT, Height/Length Dosing, 82.2, kg, 08/28/24 14:50:00 EDT, Weight Dosing gabapentin 300 mg Cap: 300 mg = 1 cap(s), Oral, Daily, # 90 cap(s), Refills(s) 1, Pharmacy: [facility], 178, cm, 07/03/24 10:05:00 EDT, Height/Length Dosing, 80.8, kg, 07/03/2410:05:00 EDT, Weight Dosing glimepiride 2 mg Tab: See Instructions, TAKE 1 TABLET DAILY, # 3 tab(s), Refills(s) 0, Pharmacy: [facility], 178, cm, 08/07/24 10:59:00 EDT, Height/Length Dosing, 78.2, kg, 08/07/24 10:59:00 EDT, Weight Dosing omeprazole 40 mg Cap-DR: 40 mg = 1 cap(s), Oral, Daily, # 90 cap(s), Refills(s) 1, Pharmacy: [facility], 178, cm, 08/28/24 14:50:00 EDT, Height/Length Dosing, 82.2, kg, 08/28/24 14:50:00 EDT, Weight Dosing pravastatin 40 mg Tab: 40 mg = 1 tab(s), Oral, Daily, # 90 tab(s), Refills(s) 3, Pharmacy: [facility], 178, cm, 09/10/24 13:01:00 EDT, Height/Length Dosing, 80.1, kg, 09/10/24 13:01:00 EDT, Weight Dosing sildenafil 100 mg Tab: 100 mg = 1 tab(s), Oral, Daily, PRN for erectile dysfunction, 1 hour before sexual activity, # 5 tab(s), Refills(s) 0, Pharmacy: [facility], 178, cm, 07/03/24 10:05:00 EDT, Height/Length Dosing, 80.8, kg, 07/03/24 10:05:00 EDT,... tamsulosin 0.4 mg Cap: 0.4 mg = 1 cap(s), Oral, Daily, # 90 cap(s), Refills(s) 1, Pharmacy: [facility], 178, cm, 09/10/24 13:01:00 EDT, Height/Length Dosing, 80.1, kg, 09/10/2413:01:00 EDT, Weight Dosing Documented Medications Documented CoQ10: See Instructions, PRN Prophylaxis, Refills(s) 0 D3: See Instructions, Oral Daily- patient states he takes 500 once a day, Refills(s) 0 Jantoven 5 mg oral tablet: 5 mg = 1 tab(s), Oral, Daily, Refills(s) 0, Blood Thinner (more content not included)...[facility]Result Comment: Electronically Signed By: Carmine COHN, Chau Pineda\.br\Date and Time Signed: 11/19/24 11:51 [id number] Hospital Discharge instructions Patient Education 11/12/2024 12:08:21 Hernández - Carpal Tunnel Release Instructions (Custom) (CUSTOM) [place], [place] [facility] CARPAL TUNNEL RELEASE INSTRUCTIONS [...] pins and needles to resolve. Patient SignatureMiclolis Bill Hernández, DO [facility] [address], [place] [address] Reviewed: 6-11/19/2024 13:10:26 Post Op Patient Instructions - FT (Custom) (CUSTOM) Follow Up Care 10/03/2024 14:28:43 With:GORDO Weller Address: [address] [place] [phone] Business (1) When:11/28/2024 13:00:00 Comments:Keep scheduled appointment. Call for any problems. [facility] 12-30-2024 NotePatient Education - Text [place], [place] [facility] CARPAL TUNNEL RELEASE INSTRUCTIONS [...] Patient Signature Axel Hernández, DO [facility] [address] [place] [address] Reviewed: 04-22[facility]12-30-2024 NoteNurse Consultation Note Reason for Visit Pt [...] Daily, 1 refills fluticasone Nasal 0.05 mg/inh [place], See Instructions, Self Directed gabapentin 300 mg [...] 03/31/2015 Recorded influenza virus vaccine, inactivated 08/02/2014 [facility] History of Present illness Narrative* Shala Farrell MD - 09/28/2024 9:30 AM EST [facility] Patient: Dariel Zabala [address], [address] , Sex: 1940, Male [place], [place] [address] Height: 180 cm Ref Phys: Hernández fax Electroneuromyogram (ENMG) Test Date: 2024-09-28 Patient Complaints: Numbness, pain L>RU I-III. S/p CT release R. Nerve Conduction Studies Anti Sensory Summary Table Site NR Peak (ms) Norm Peak (ms) P-T* Amp ( V) Norm P-T Amp Site1 Site2 Delta-0 (ms) Dist (cm) Hipolito (m/s) Norm Hipolito (m/s) Left Median Anti Sensory (2nd Digit) [...] Amp Site1 Site2 Delta-0 (ms) Dist (cm) Hipolito (m/s) Norm Hipolito (m/s) Left Ulnar Ortho Ortho Sensory (Wrist) Dig V 2.0 2.5 14.1 Dig V Wrist 2.0 8.0 40 Right Ulnar Ortho Ortho Sensory (Wrist) Dig V 2.1 2.6 22.6 Dig V Wrist 2.1 8.0 38 Motor Summary Table Site NR Onset (ms) Norm Onset (ms) O-P* Amp (mV) Norm O-P Amp Neg Dur (ms) Site1 Site2 Delta-0 (ms)Dist (cm) Hipolito (m/s) Norm Hipolito (m/s) Left Median Motor (APB) Wrist 8.4 [...] Amp Site1 Site2 Delta-0 (ms) Dist (cm) Hipolito (m/s) Norm Hipolito (m/s) Left Median Palmar Ortho Mixed (Wrist) [...] Doub=doublet; Fasc=fasciculation; FFE=full for effort; Fib=fibrillation; Myokym=myokymia; [place]=myotonic potential; N,0=normal; NR=no response; Polyph=polyphasia; Pos=positive [sharp] [...] available for comparison. Shala Farrell M.D. Diplomate, [place] Board of Psychiatry and Neurology (neurology, epilepsy, sleep medicine) Diplomate, [place] Board of Clinical Neurophysiology Diplomate, [place] Board of Preventive Medicine (clinical informatics) . documented in this [facility]10-07-2024 Telephone encounter Note* Telephone Encounter - Miguel Moe - 08/20/2024 10:50 AM EDT LVM to RC in regard to BUE referral from Dr. Hernández--Approved to schedule--25.00 co-pay will be applied to toward OOP. [facility] [id number] Miscellaneous Notes* Telephone Encounter - Miguel Moe - 08/20/2024 10:50 AM EDT LVM to RC in regard to BUE referral from Dr. Hernández--Approved to schedule--25.00 co-pay will be applied to toward OOP. documented in this [facility]05-13-2024 Hospital Discharge instructions Patient Education [...] condition: Doing activities that require a strong child welfare caseworker. Having rheumatoid arthritis, gout, or diabetes. Being [...] splint on your hand. General instructions Take [id number] and prescription medicines only as told by [...] provider. Document Revised: 03/17/2020 Document Reviewed: 03/17/2020 [employer] Patient Education 2022 [employer]. Follow Up Care 03/01/2024 15:40:29 With:GORDO Weller Address: [address] [place], [place] [id number] Business (1) When:04/04/2024 10:15:00 Comments:Keep scheduled appointment [facility]01-05-2024 Evaluation note* Encounter Date Diagnosis Assessment Notes [...] sodium level at upcoming appt in January [facility] Other 12-20-2023 Evaluation note* Encounter Date Diagnosis [...] further dizziness symptoms would recommend f/u with center specialists as well. [facility] Other 11-17-2023 Evaluation note* Encounter Date Diagnosis Assessment Notes Treatment Notes Treatment Clinical Notes Sep, Type 2 diabetes mellitus (ICD-10 - E11.9) [facility] Other 11-17-2023 Miscellaneous Notes* Telephone Encounter - Venessa Riggins RN - 09/30/2023 12:29 PM EST Called patient back and reviewed plan from his call with Nurse Firer Automatic Stoker at 11:36 AM. See my note Patient already called his PCP as advise and waiting call back for scheduling. He was hospital discharged on 08/26 for cognitive problems and low sodium. He finished his pills for low sodium today. NOC closing was given Conferenced [facility] to [facility] for an appt with nephrology as soon [...] have any questions, you can call Nurse construction cost estimator back. * Telephone Encounter - Venessa Riggins RN - 09/30/2023 11:36 AM EST Patient calling with request for physician referral: Patient referred to nephrology and primary care Department. Patient denies any new or worsening symptoms of which a provider is not aware: Yes. Patient was discharged from on 08/26 for low sodium and said he was referred to akie[facility] specialist. He has non [facility] nephrology appt in December but would like a sooner kidney doctorappt here. Patient concerned about getting same illness again. He denies symptoms for today. Advised him to see a primary care provider and a kidney doctor as soon as possible. he plans to call his none PCP luis appt. Conferenced him to [facility] and then call dropped. My [employer] lost connection. NOC closing was given GO TO THE EMERGENCY ROOM OR CALL 911 IF: * You develop any new symptoms * Your condition worsens * You are concerned or anxious about your condition for any other reason. If you have any questions, you can call Nurse construction cost estimator back. [facility]* Encounter Date Diagnosis Assessment Notes Treatment Notes Treatment Clinical Notes Sep, Hyponatremia (ICD-10 - E87.1) Recent sodium 136 at low end of normal, given significance of symptoms and recommendation of hospital for f/u will refer to nephrology patient requesting Peshtigo Sep, Anticoagulant long-term use (ICD-10 - Z79.01) Follows with INR clinic through . Sep, Atrial fibrillation (ICD-10 - I48.91) Appears in NSR today, anticoagulated on Warfarin Sep, Hypothyroidism (ICD-10 - E03.9) Recent TFTs in normal range, clinically euthyroid, continue current dose of LT4 Sep, Type 2 diabetes mellitus (ICD-10 - E11.9) Recent a1c in good range at 5.6%, continue current dose of glimepiride. Sep, Immunization due (ICD-10 - Z23) [facility] Other 10-16-2023 Evaluation note* Encounter Date Diagnosis Assessment Notes Treatment Notes Treatment Clinical Notes Aug, Hyponatremia (ICD-10 - E87.1) [facility] Other 08-03-2023 Evaluation note* Encounter Date Diagnosis Assessment Notes Treatment Notes Treatment Clinical Notes Jun, Atrial fibrillation (ICD-10 - I48.91) Rate controlled, mild bradycardia but asymptomatic. Will continue current dose of atenolol. He is anticoagulated on Coumadin with goal INR 2-3, he is due for INR check. Will refer to coumadin clinic through Jun, Anticoagulant long-term use (ICD-10 - Z79.01) Jun, Hearing loss (ICD-10 - H91.90) Referral to local animal care specialist Jun, Dermatitis (ICD-10 - L30.9) Can trial topical steroid PRN, discussed may be secondary to dry skin. Recommend daily use of lotion Jun, Hypothyroidism (ICD-10 - E03.9) Due for TFTs prior to next visit Jun, Type 2 diabetes mellitus (ICD-10 - E11.9) Due for a1c prior to next visit Jun, BPH (benign prostatic hyperplasia) (ICD-10 - N40.0) [facility] Other 08-03-2023 Reason for referral (narrative)* Reason Medication managemen t through - Coumadin management with INR goal 2-3 Diagnosis 1 Anticoagulant long-t erm use (Z79.01) Referral Organization [facility] Rodo John Referring Provider First Name Jada Referring Provider Last Name [facility] Referring Provider Specialty [facility] Referred Organization Referred Address [address], [place],[address] Referred Provider Specialty Milvia felix Referral Priority Routine General Notes Gabrielle Reid 01/2023 01:34:29 PM >this is an order not a referral, clinical informed and will fax order over for standing order INR to [facility] Reason * FU 06/29 CALL he aring loss, issue with hearing aids Diagnosis 1 Hearing loss (H91.90 ) Referral Organization [facility] Rodo John Referring Provider First Name Jada Referring Provider Last Name [facility] Referring Provider Specialty [facility] Referred Organization [facility] Referred Address ,[place], [place],[address] Referred Provider Specialty Audiologists Referral Priority Routine General Notes Gabrielle Reid 01/2023 01:28:34 PM >referral received and faxed [facility] Other 04-27-2010 History of Past illness Narrative* Problem Noted Date Diagnosed Date Resolved Date Myalgia 03/10/2010 03/01/2011 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 and other lower urinary tract symptoms (LUTS) 08/11/2006 01/11/2013 Elevated prostate specific antigen (PSA) 03/07/2012 documented as of this encounter (statuses as of 09/30/2023) [facility] note No data available for this section [facility] K[facility] note Future Appointments Appointment Date:03/08/2024 01:00:00 PM Scheduled Provider:Kylah Garcia MD Location:[facility] Appointment Type: Open Appointment Date:03/26/2024 01:45:00 PM Scheduled Provider: Location:[facility] Appointment Type:Surgery FT Appointment Date:05/01/2024 09:00:00 AM Scheduled Provider: Location:[facility] Appointment Type: Lab Draw Appointment Date:05/03/2024 08:00:00 AM Scheduled Provider: Location:[facility] Appointment Type: Medicare Wellness Subsequent Appointment Date:05/03/2024 09:00:00 AM Scheduled Provider:Kylah Garcia MD Location:[facility] Appointment Type: Open Future Scheduled Tests Laboratory* PSA Screen, Total 02/02/24 * CBC w/ Auto Diff 02/02/24 * Comprehensive Metabolic Panel 02/02/24 * Lipid Panel 02/02/24 [facility] Future Appointments Appointment Date:05/01/2024 09:00:00 AM Scheduled Provider: Location:[facility] Appointment Type:FM Lab Draw Appointment Date:05/03/2024 08:00:00 AM Scheduled Provider: Location:[facility] Appointment Type: Medicare Wellness Subsequent Appointment Date:05/03/2024 09:00:00 AM Scheduled Provider:Kylah Garcia MD Location:[facility] Appointment Type: Open Future Scheduled Tests Laboratory* PSA Screen, Total 02/02/24 * CBC w/ Auto Diff 02/02/24 * Comprehensive Metabolic Panel 02/02/24 * Lipid Panel 02/02/24 [facility] Future Appointments Appointment Date:05/01/2024 09:00:00 AM Scheduled Provider: Location:[facility] Appointment Type:FM Lab Draw Appointment Date:05/03/2024 08:00:00 AM Scheduled Provider: Location:[facility] Appointment Type: Medicare Wellness Subsequent Appointment Date:05/03/2024 09:00:00 AM Scheduled Provider:Kylah Garcia MD Location:[facility] Appointment Type: Open Appointment Date:05/25/2024 01:00:00 PM Scheduled Provider:Kashif Barnett MD [facility] Type:Cardiology Follow Up (FT) Future Scheduled Tests Laboratory* PSA Screen, Total 02/02/24 * CBC w/ Auto Diff 02/02/24 * Comprehensive Metabolic Panel 02/02/24 * Lipid Panel 02/02/24 Radiology* Echo Transthoracic Complete 04/20/24 [facility] Future Appointments Appointment Date:05/03/2024 08:00:00 AM Scheduled Provider: Location:[facility] Appointment Type:FM Medicare Wellness Subsequent Appointment Date:05/03/2024 09:00:00 AM Scheduled Provider:Kylah Garcia MD Location:[facility] Appointment Type:FM Open Appointment Date:05/21/2024 10:00:00 AM Scheduled Provider: [facility] Type:CV Holter/Event (FT) Appointment Date:05/25/2024 01:00:00 PM Scheduled Provider:Kashif Barnett MD [facility] Type:Cardiology Follow Up (FT) [facility] Future Appointments Appointment Date:05/30/2024 03:45:00 PM Scheduled Provider:Kashif Barnett MD [facility] Type:Cardiology Follow Up (FT) Appointment Date:11/01/2024 09:15:00 AM Scheduled Provider:Kylah Garcia MD Location:[facility] Appointment Type: Open Appointment Date:05/02/2025 08:00:00 AM Scheduled Provider: Location:[facility] Appointment Type: Medicare Wellness Subsequent [facility] Future Appointments Appointment Date:08/31/2024 01:00:00 PM Scheduled Provider:Kashif Barnett MD [facility] Type:Cardiology Follow Up (FT) Appointment Date:11/01/2024 09:15:00 AM Scheduled Provider:[facility] Appointment Date:05/02/2025 08:00:00 AM Scheduled Provider: Location:[facility] Appointment Type: Medicare Wellness Subsequent [facility] Future Appointments Appointment Date:11/01/2024 09:15:00 AM Scheduled Provider:Kylah Garcia MD Location:[facility] Appointment Type:FM Open Appointment Date:12/11/2024 01:00:00 PM Scheduled Provider:Dixon Dubose PA-C [facility] Type:Cardiology Follow Up (FT) Appointment Date:05/02/2025 08:00:00 AM Scheduled Provider: Location:[facility] Appointment Type:FM Medicare Wellness Subsequent [facility] evaluation + Plan note Future Appointments Appointment Date:11/01/2024 09:15:00 AM Scheduled Provider:Kylah Garcia MD Location:[facility] Appointment Type:FM Open Appointment Date:11/19/2024 02:15:00 PM Scheduled Provider: Location:[facility] Appointment Type:Surgery FT Appointment Date:12/12/2024 10:15:00 AM Scheduled Provider:Dixon Dubose PA-C [facility] Type:Cardiology Follow Up (FT) Appointment Date:05/02/2025 08:00:00 AM Scheduled Provider: Location:[facility] Appointment Type: Medicare Wellness Subsequent [facility] evaluation + Plan note Future Appointments Appointment Date:11/19/2024 02:15:00 PM Scheduled Provider: Location:[facility] Appointment Type:Surgery FT Appointment Date:12/12/2024 10:15:00 AM Scheduled Provider:Dixon Dubose PA-C [facility] Type:Cardiology Follow Up (FT) Appointment Date:05/02/2025 08:00:00 AM Scheduled Provider: Location:[facility] Appointment Type:FM Medicare Wellness Subsequent [facility] evaluation + Plan note Future Appointments Appointment Date:12/24/2024 01:15:00 PM Scheduled Provider:Kylah Garcia MD Location:[facility] Appointment Type:FM Open Appointment Date:05/02/2025 08:00:00 AM Scheduled Provider: Location:[facility] Appointment Type: Medicare Wellness Subsequent Diagnostic Tests Pending * Basic Metabolic Panel 12/17/24 Future Scheduled Tests Laboratory* Basic Metabolic Panel 11/13/24 [facility] Evaluation + Plan note Future Appointments Appointment Date:01/22/2025 10:15:00 AM Scheduled Provider:Kylah Garcia MD Location:[facility] Appointment Type: Open Appointment Date:05/02/2025 08:00:00 AM Scheduled Provider: Location:[facility] Appointment Type: Medicare Wellness Subsequent Future Scheduled Tests Laboratory* Basic Metabolic Panel 11/13/24 [facility] evaluation + Plan note Future Appointments Appointment Date:02/05/2025 01:30:00 PM Scheduled Provider:Kylah Garcia MD Location:[facility] Appointment Type: Open Appointment Date:05/02/2025 08:00:00 AM Scheduled Provider: Location:[facility] Appointment Type: Medicare Wellness Subsequent Future Scheduled Tests Laboratory* Basic Metabolic Panel 01/10/25 * Basic Metabolic Panel 11/13/24 [facility] evaluation + Plan note Future Appointments Appointment Date:05/02/2025 08:00:00 AM Scheduled Provider: Location:[facility] Appointment Type: Medicare Wellness Subsequent Future Scheduled Tests Laboratory* Basic Metabolic Panel 11/13/24 [facility] evaluation + Plan note Future Appointments Appointment Date:08/09/2025 10:40:00 AM Scheduled Provider:YANIQUE CHAMBERS CNP Location:[facility] Appointment Type: Open Appointment Date:05/13/2026 08:00:00 AM Scheduled Provider[facility] [facility] Appointment Type: Medicare Wellness Subsequent Future Scheduled Tests Laboratory* Basic Metabolic Panel 11/13/24 [facility] evaluation noteNo [facility] [employer] Other evaluation note* Diagnosis Pain in both upper extremities- Primary Carpal tunnel syndrome, bilateral Carpal tunnel syndrome documented in this encounter [facility] Diagnosis Pre-op testing- Primary Unspecified pre-operative examination Right hand pain Pain in soft tissues of limb Arm weakness Other musculoskeletal symptoms referable to limbs [facility] Diagnosis Foreign body of right ear, initial encounter- Primary [facility]* Diagnosis Status post carpal tunnel release- Primary Other postprocedural status documented [facility]* Diagnosis Fracture of nasal bones, initial encounter [...] and immunity disorders documented in this encounter Gerardo Moody [facility] general Narrative - Reported* Type Description Date Medical History type 2 diabetes Medical History hypothyroid Medical History Afib Surgical History multiple neck sx Surgical History tonsillectomy Surgical History adenoidectomy Surgical History MAU cataract Hospitalization History see above [employer] Other [employer] general Narrative - Reported* Type Description Date Medical History type 2 diabetes Medical History hypothyroid Medical History Afib Surgical History multiple neck sx Surgical History tonsillectomy Surgical History adenoidectomy Surgical History MAU cataract Hospitalization History see above Hospitalization History low sodium- [facility] 10/2023 [employer] Other [facility] general Narrative - Reported* Type Description Date Medical History type 2 diabetes Medical History hypothyroid Medical History Afib Surgical History multiple neck sx Surgical History tonsillectomy Surgical History adenoidectomy Surgical History MAU cataract Hospitalization History see above Hospitalization History low sodium- [facility] 10/2023 Hospitalization History Jackie--Influe nza A, hyponatremia, paroxysmal afib, altered mental status, type 2 DM, generalized weakness hypomagnesiema, RADHA 11/13/23-11/15/23 [facility] Other [facility] Discharge instructions No data available for this section [facility] No data available for this section [facility] N[facility]ative* Auth/Cert (Routine) Specialty Diagnoses / Procedures Referred By Samuel t Referred To Contact Diagnoses Epistaxis Nasal fracture Fracture of nasal bones, initial encounter for closed fracture Beto Hedrick DO [address] [facility] [address] [place] [address] Phone: tel: fax: [facility] [address] [place] [address] Referral ID Status Reason Start Date Expiration Date Visits Re quested Visits Authorized [id number] 1 1 [employer] Summary Purpose Family History No Family History [...] Found Advance Directives No Advanced Directives Records Found Date Activated Date Inactivated Comments 06/02/2025 12:05 PM Reason for Referral Reason * FU 09/28 follow up hospitalization for symptomatic hyponatremia, [facility] [place] [facility] Lara ph [phone], fax [phone] Diagnosis 1 Hyponatremia (E87.1) Referral Organization [facility] Karinain patsy John Referring Provider First Name Jada Referring Provider Last Name [facility] Referring Provider Specialty [facility] Good People Referred Organization [facility] Referred Provider Romeo Lara Referred Address [address] [place], [place],[address] Referred Provider Specialty Internal Med icine Referral Priority Routine General Notes Gabrielle Reid 06/2023 01:35:25 PM > referral received and faxed Clinical Notes [facility] [place] [facility] Lara ph [phone], fax [phone] Reason hyponatremia, recent hospitalization [facility] for hyponatremia Diagnosis 1 Hyponatremia (E87.1) Referral Organization [facility] Kevin Referring Provider First Name Jada Referring Provider Last Name [facility] Referring Provider Specialty [facility] Referred Organization [facility] Referred Address [address] [place], [place],[address] Referred Provider Specialty Nephrology Referral Priority Routine [...] section and content) DATE CREATED AUTHOR 06/03/2020 [facility] DATE CREATED AUTHOR AUTHOR'S ORGANIZ ATION 11/10/2023 [facility] DATE CREATED AUTHOR AUTHOR'S ORGANIZ ATION 05/03/2024 [facility] DATE CREATED AUTHOR AUTHOR'S ORGANIZ ATION 08/17/2024 [facility] DATE CREATED AUTHOR AUTHOR'S ORGANIZ ATION 11/02/2024 [facility] DATE CREATED AUTHOR AUTHOR'S ORGANIZ ATION 11/14/2024 [facility] DATE CREATED AUTHOR AUTHOR'S ORGANIZ ATION 11/24/2024 [facility] DATE CREATED AUTHOR AUTHOR'S ORGANIZ ATION 11/25/2024 [facility] DATE CREATED AUTHOR AUTHOR'S ORGANIZ ATION 11/29/2024 [facility] DATE CREATED AUTHOR AUTHOR'S ORGANIZ ATION 12/21/2024 [facility] DATE CREATED AUTHOR AUTHOR'S ORGANIZ ATION 01/02/2025 [facility] DATE CREATED AUTHOR AUTHOR'S ORGANIZ ATION 01/10/2025 [facility] DATE CREATED AUTHOR AUTHOR'S ORGANIZ ATION 01/11/2025 [facility] DATE CREATED AUTHOR AUTHOR'S ORGANIZ ATION 01/27/2025 [facility] DATE CREATED AUTHOR AUTHOR'S ORGANIZ ATION 02/06/2025 [facility] DATE CREATED AUTHOR AUTHOR'S ORGANIZ ATION 02/07/2025 [facility] DATE CREATED AUTHOR AUTHOR'S ORGANIZ ATION 02/22/2025 [facility] DATE CREATED AUTHOR AUTHOR'S ORGANIZ ATION 05/23/2025 [facility] DATE CREATED AUTHOR AUTHOR'S ORGANIZ ATION 05/24/2025 [facility] DATE CREATED AUTHOR AUTHOR'S ORGANIZ ATION 06/03/2025 [facility] DATE CREATED AUTHOR AUTHOR'S ORGANIZ ATION 06/08/2025 [facility] DATE CREATED AUTHOR AUTHOR'S ORGANIZ ATION 06/09/2025 [facility] DATE CREATED AUTHOR AUTHOR'S ORGANIZ ATION 06/09/2025 [facility] REASON FOR VISIT (unrecogniz ed section [...] or prosecute any alcohol or drug abuse patient.[facility] Patient Care team informatio n (unrecognized section and content) Dermatology Physician Relationship Specialty Start Date End Date Kylah Garcia MD PCP - General Family Medicine 02/03/24 Dermatology Physician Relationship Specialty Start Date End Date Kylah Garcia MD PCP - General Family Medicine 02/03/24 Dermatology Physician Relationship Specialty Start Date End Date Kylah Garcia MD PCP - General Family Medicine 02/03/24 Dermatology Physician Relationship Specialty Start Date End Date Kylah Garcia MD PCP - General Family Medicine 02/03/24 Dermatology Physician Relationship Specialty Start Date End Date Kylah Garcia MD PCP - General Family Medicine 02/03/24 Dermatology Physician Relationship Specialty Start Date End Date Kylah Garcia MD [address] [place] [address] PCP - General Family Medicine 11/26/24 Dermatology Physician Relationship Specialty Start Date End Date Kylah Garcia MD [address], [place] [id number] PCP - General Family Medicine 11/26/24 Dermatology Physician Relationship Specialty Start Date End Date Kylah Garcia MD [address] [place] [address] [id number] PCP - General Family Medicine 11/26/24 Dermatology Physician Relationship Specialty Start Date End Date Kylah Garcia MD [address], [place] [id number] PCP - General Family Medicine 11/26/24 Dermatology Physician Relationship Specialty Start Date End Date Jaden Vicente APRN - ACCOUNTING FILE CLERK [address] [place] [address] [id number] PCP - General 06/05/25 Ordered Prescriptions (unrec ognized section and content) Prescription Sig Dispense Quantity Refills Last Filled Start Date End Date urea (URE-NA) 15 g PACK packet Take 15 g by mouth daily 30 each 2 06/05/2025 urea (URE-NA) 15 g PACK packet Take 15 g by mouth daily 30 each 3 06/05/2025 urea (URE-NA) 15 g PACK packet Take 15 g by mouth daily 30 each 06/06/2025 5 cephALEXin (KEFLEX) 500 MG capsule Take 1 capsule by mouth every 8 hours for 4 days 12 capsule 06/05/2025 5 lisinopril (PRINIVIL;ZESTRIL) 10 MG tablet Take 1 tablet by mouth daily 30 tablet 1 06/06/2025 Scheduled Active and Recently Administ ered Medications (unrecognized section and content) Medication Order 06/03/2025 06/04/2025 06/05/2025 atenolol (TENORMIN) tablet 25 mg 25 mg, Oral, 2 TIMES DAILY, First dose (after last modification) on 06/02/25 at 2100, Until Discontinued, Hold for heart rate <60b/m Sbp <110mmHg 0930 (Given - Provider: Pat Nieves RN)210 (Not Given - Provider: Adia Blandon RN - Reason: Patient/family refused - Comment: Pt unable to follow commands and swallow) 1109 (Given - Provider: Flip Dubose RN - Comment: 2 anti hypentive meds at once)2012 (Not Given - Provider: Nancy Fox RN - Reason: Contraindicated) 0837 (Given - Provider: Flip Dubose RN)2100 (Due) cephALEXin (KEFLEX) capsule 500 mg 500 mg, [...] Flip Dubose RN)2153 (Given - Provider: Nancy Fox RN) 0542 (Given - Provider: Nancy Fox RN)1527 (Not Given - Provider: Flip Dubose RN - Reason: Patient/family refused)2200 (Due) finasteride (PROSCAR) tablet 5 mg 5 mg, [...] Nieves RN) 0849 (Given - Provider: Flip Dubose, RN) 0838 (Given - Provider: Flip Dubose RN) glipiZIDE (GLUCOTROL) tablet 5 mg 5 mg, Oral, DAILY BEFORE BREAKFAST, First dose on Tue06/03/25 at 0700, Until Discontinued, Substituted for glimepiride (AMARYL). 0931 (Given - Provider: Pat Nieves RN) 0628 (Not Given - Provider: Monico Kaiser RN - Reason: Other - Comment: do not give per Dr. Vaughn d/t blood sugar 76) 0730 (Not Given - Provider: Flip Dubose RN [...] 60 minutes of last blood glucose check 0931 (Not Given - Provider: Pat Nieves RN [...] RN - Reason: Order parameters not met)1700 (Due)2100 (Due) levothyroxine (SYNTHROID) tablet 25 mcg 25 [...] Nieves RN) 0851 (Given - Provider: Flip Dubose, ERIN) 0842 (Given - Provider: Flip Dubose RN) [...] Provider: Pat Nieves RN - Reason: Patient/family refused)2110 (Given - Provider: Adia Blandon RN) 0240 (Given - Provider: Monico Kaiser RN)0630 (Given - Provider: Monico Kaiser RN)0853 (Given - Provider: Flip Dubose RN)1432 (Given - Provider: Flip Dubose RN)1753 (Given - Provider: Flip Dubose RN)2026 (Given - Provider: Nancy Fox RN) 0206 (Given - Provider: Nancy Fox RN)0542 (Given - Provider: Nancy Fox RN)1036 (Given - Provider: Flip Dubose RN)1528 (Not Given - Provider: Flip Dubose RN - Reason: Patient/family refused)1815 (Due)2215 (Due) sodium chloride flush 0.9 % injection [...] mL/lumen 0932 (Given - Provider: Pat Nieves RN)2152 (Given - Provider: Adia Blandon, ERIN) 0853 (Given - Provider: Flip Dubose RN)2015 (Given - Provider: Nancy Fox RN) 0841 (Given - Provider: Flip Dubose RN)2100 (Due) sodium chloride tablet 1 g (CANCELED) 1 [...] OR if serum Na+ goal is exceeded. 0 (New Bag - Provider: Adia Blandon, ERIN) [...] Rectal, EVERY 6 HOURS PRN, Starting on 06/02/25 at 1205, Until Discontinued, Pain Mild (1-3) OR per patient request for pain score (4-10), Fever, For temp greater than 100.4 F (38 C), Administer if oral route cannot be used. acetaminophen (TYLENOL) tablet 650 mg(Linked Group 1) 650 mg, Oral, EVERY 6 HOURS PRN, Starting on 06/02/25 at 1205, Until Discontinued, Pain Mild (1-3) OR per patient request [...] PRN, Starting on Tue06/02/25 at 1205, Until Discontinued, Low blood sugar, Blood glucose LESS THAN 70 mg/dL and patient NOT ALERT or NPO and does not have IV access., After administration, attempt intravenous access and start dextrose 10% at 100 mL/hr. Repeat blood glucose in 15 minutes x 2 and notify provider. Reconstitute powder for injection by adding 1 mL of professor of chemistry-supplied sterile diluent or sterile water for injection to a vial containing 1 mg of the drug, to provide solutions containing 1 mg/mL. Shake vial gently to dissolve. glucose chewable tablet 16 g 16 g (4 tablet), Oral, PRN, Starting on Tue06/02/25 at 1205, Until Discontinued, Low blood sugar, If blood glucose is [...] PRN, Starting on 06/02/25 at 1205, Until Discontinued, Nausea, Vomiting, Administer if oral route cannot be used. 2139 (Given - Provider: Adia Blandon RN) 075 (Given - Provider: Flip Dubose, ERIN) ondansetron (ZOFRAN-ODT) disintegrating tablet 4 mg(Linked Group 3) 4 mg, Oral, EVERY 8 HOURS PRN, Starting on 06/02/25 at 1205, Until Discontinued, Nausea, Vomiting 2139 (See Alternative - Provider: Adia Blandon, ERIN) 075 (See Alternative - Provider: Flip Dubose, ERIN) polyethylene glycol (GLYCOLAX) packet 17 g 17 g, Oral, DAILY PRN, Starting on 06/02/25 at 1205, Until Discontinued, Constipation, First line therapy for constipation potassium bicarb-citric acid (EFFER-K) effervescent tablet 40 mEq(Linked Group 4) 40 mEq, Oral, PRN, Starting on 06/02/25 at 1205, Until Discontinued, Per Potassium Replacement Protocol, Administer as alternative [...] PRN, Starting on 06/02/25 at 1205, Until Discontinued, Potassium Replacement, May give alternative linked oral [...] 4) 10 mEq, IntraVENous, PRN, Starting on 06/02/25 at 1205, Until Discontinued, at 100 mL/hr, Potassium Replacement, K Lab [...] mL 10 mL, IntraVENous, PRN, Starting on 06/02/25 at 1205, Until Discontinued, Line Care, After every IV line use Linked Groups Order Group 1: acetaminophen (TYLENOL) tablet 650 mgJump to med 650 mg, Oral, EVERY 6 HOURS PRN, Starting on 06/02/25 at 1205, Until Discontinued, Pain Mild (1-3) OR per patient request for pain score (4-10), Fever, For temp greater than 100.4 F (38 C), Maximum dose of acetaminophen is 4000 mg from all sources in 24 hours. Or acetaminophen (TYLENOL) suppository 650 mgJump to med 650 mg, Rectal, EVERY 6 HOURS PRN, Starting on Tue06/02/25 at 1205, Until Discontinued, Pain Mild (1-3) OR per patient request [...] PRN, Starting on 06/02/25 at 1205, Until Discontinued, Nausea, Vomiting Or ondansetron (ZOFRAN) injection 4 mgJump to med 4 mg, IntraVENous, EVERY 6 HOURS PRN, Starting on 06/02/25 at 1205, Until Discontinued, Nausea, Vomiting, Administer if oral route cannot be used. Group 4: potassium chloride (KLOR-CON M) extended release tablet 40 mEqJump to med 40 mEq, Oral, PRN, Starting on 06/02/25 at 1205, Until Discontinued, Potassium Replacement, May give alternative linked oral [...] med 40 mEq, Oral, PRN, Starting on 06/02/25 at 1205, Until Discontinued, Per Potassium Replacement Protocol, Administer as alternative [...] med 10 mEq, IntraVENous, PRN, Starting on 06/02/25 at 1205, Until Discontinued, at 100 mL/hr, Potassium Replacement, K Lab Replacement Action 2.7-3.0 10 mEq IVPB x 6 doses (60 mEq Total) < 2.7 CALL PHYSICIAN and 10 mEq IVPB x 6 doses (60 mEq Total) Infuse at 10 mEq/hr Repeat Potassium lab 1 hour after final administration. Not for use in patients with CrCl less than 30 mL/min. FOR RECORDS PERTAINING TO PATIENTS WHO ARE [...] BE BASED ON THE PRIMARY CLINICAL RECORDS. [employer] provides no warranty or guarantee of the accuracy or completeness of information in this document.
[2025-06-12] MEDS: MAGNESIUM SULFATE IN WATER 2 GM/50 ML PREMIX IV (23:25)
[2025-06-13] VITALS (10 sets, daily range): BP systolic 129–155; BP diastolic 69–77; PULSE 52–70; TEMP 36.6–37.2; O2SAT 93–98
--- NOTE | 2025-06-13 | MR_ITS ---
[place] [id number] Patient Name: INDIANA ZABALA MRN: [id number] date: 1940 Sex: M Assigned Patient Location: MS Current Patient Location: MM Accession/Order Number: [id number] Exam Date: 06/13/2025 16:48 Report Date: 06/13/2025 16:51 At the request of: KARTHIK SERRANO MD Procedure: MR head/brain wo con EXAMINATION: MRI OF THE BRAIN WITHOUT CONTRAST CLINICAL HISTORY: TIA COMPARISON: 06/12/2025 CT TECHNIQUE: Multiecho, multiplanar imaging of the brain was performed without contrast FINDINGS: No restricted diffusion. Generalized involutional changes of brain parenchyma identified with prominence of the ventricles and sulci. Mild to moderate periventricular and subcortical T2 prolongation identified suggestive of of chronic small vessel ischemic disease. No shift midline structure. Basal cisterns are patent. Major intracranial arterial vascular flow voids are preserved. Remote gliosis left parietal lobe. Senescent calcifications both basal ganglia regions. Cataract surgery. Mild paranasal sinus mucosal thickening. MR/MR head/brain wo con IMPRESSION: [id number] chronic small ischemic disease Central involutional change. Negative acute intracranial process by MRI. Impression dictated by: Rajeev Anne M.D. 06/13/2025 4:51 PM Dictation Location: [place] [address] Electronically authenticated by: [id number] Y Date: 06/13/2025 16:51
[2025-06-13 05:36] LABS: Hematocrit 33.9 % (42.0-54.0); Hemoglobin 11.8 g/dL (14.0-18.0); Immature Granulocytes Abs Auto 0.01 10^3/uL (0.00-0.03); Immature Granulocytes Pct Auto 0.1 % (0.0-0.5); Lymphocytes Absolute Auto 2.1 10^3/uL (1.2-3.8); Mean Corpuscular HGB Conc 34.8 g/dL (29.9-35.2); Mean Corpuscular Hemoglobin 30.8 pg (25.9-34.0); Mean Corpuscular Volume 88.5 fL (80.0-94.0); Platelet Count 205 10^3/uL (150-450); Red Blood Count 3.83 10^6/uL (4.70-6.10); White Blood Count 6.7 10^3/uL (4.0-11.0)
[2025-06-13 06:15] LABS: Alanine Aminotransferase 23 U/L (16-63); Albumin Globulin Ratio 1.1; Albumin Level 3.4 g/dL (3.4-5.0); Alkaline Phosphatase 87 U/L (46-116); Anion Gap 10.8; Aspartate Amino Transferase 27 U/L (15-37); Blood Urea Nitrogen 29.0 mg/dL (7.0-18.0); Calcium 8.9 mg/dL (8.5-10.1); Carbon Dioxide 28.7 mmol/L (21.0-32.0); Chloride 98 mmol/L (98-107); Cholesterol 142 mg/dL (<=200); Estimated GFR (African America >60 (>=60 mL/min/1.73m^2); Estimated GFR (Non-African Ame >60 (>=60 mL/min/1.73m^2); Globulin 3.1 g/dL; Glucose 89 mg/dL (74-106); HDL Cholesterol 45 mg/dL (40-60); Potassium 4.5 mmol/L (3.5-5.1); Sodium 133 mmol/L (136-145); Total Protein 6.5 g/dL (6.4-8.2); Triglycerides 79 mg/dL (<=150); VLDL CHOLESTEROL 15.8 mg/dL
[2025-06-13 06:16] LABS: Magnesium 2.1 mg/dL (1.8-2.4); Thyroid Stimulating Hormone 1.907 uIU/mL (0.358-3.740)
--- NOTE | 2025-06-13 06:54 | CA_ITS ---
Patient Name: INDIANA ZABALA MR#: [id number] : 1940 Exam Date: 06/13/2025 Ordering Doctor: KARTHIK SERRANO ECHOCARDIOGRAM REPORT PROCEDURE: CA ECHO DOPPLER COMPLETE INDICATIONS: TIA vs CVA COMPARISON: None. DESCRIPTION: COMPLETE ECHOCARDIOGRAM Real-time transthoracic echocardiography with 2D, M-mode, spectral and color flow Doppler performed. QUALITY: Technical quality was good. LEFT VENTRICLE: Normal chamber size. Mild left ventricular hypertrophy. LV EF: Global left ventricular systolic function is normal. Calculated left ventricular ejection fraction is 58%. No significant wall motion abnormalities. DIASTOLIC: Not adequately assessed due to heart rhythm. ATRIAL SEPTUM: Agitated saline contrast does not reveal an intra-cardiac shunt. LEFT ATRIUM: Mild dilatation. RIGHT ATRIUM: Severe dilatation. RIGHT VENTRICLE: Moderate dilatation. Decreased right ventricular systolic function. TRICUSPID VALVE: Normal mobility and thickness. Moderate to severe regurgitation. No evidence of pulmonary hypertension. RVSP 34mmHg. MITRAL VALVE: Normal mobility and thickness. No evidence of mitral valve stenosis. Mild mitral regurgitation. AORTIC VALVE: Normal trileaflet appearance. Mildly calcified aortic valve. Normal leaflet mobility. Doppler velocity suggests no significant aortic valve stenosis. Trivial aortic regurgitation. AORTIC ROOT: Normal diameter and appearance. Measuring 3.6cm. The ascending aorta is normal in size. PULMONIC VALVE: Normal thickness and mobility. No stenosis. Trivial regurgitation. PERICARDIUM: No evidence of pericardial effusion. IVC: Collapses with inspiration. Normal size. CONCLUSION: 1. Global left ventricular systolic function is normal; visually estimated ejection fraction is 55 to 60% 2. The right ventricle is moderately dilated with reduced systolic function 3. Mild left ventricular hypertrophy 4. Biatrial dilatation 5. Moderate to severe tricuspid regurgitation 6. Agitated saline contrast does not reveal any intracardiac shunt Adult Echocardiography Procedure Report Left Ventricle LVEDD (3.7 - 5.6 cm): 4.86 cm LVESD (2.2 - 4.0 cm): 3.08 cm LVIVS thickness (0.6 - 1.2 cm): 0.85 cm LVPW thickness (0.5 - 1.0 cm): 1.11 cm LVOT Max Gradient: 1.48 mm[Hg] LVOT Area (cm2): 0.61 m/s Peak Velocity (LVOT): 0.61 m/s Mean Velocity (LVOT): 0.38 m/s LVOT Diameter 2.24 cm Left Ventricular Ejection Fraction: 58.02 % Left Atrium LA Volume Index (2D A2C): 40.25 ml/m2 Left Atrium Systolic Dimension: 4.43 cm Mitral Valve Mitral Valve E-Wave Peak Velocity: 1.03 m/s Right Ventricle RV Internal Diastolic Dimension: 4.63 cm Aorta AO Root Diam: 3.59 cm Ascending Ao Diam: 3.38 cm Aortic Valve AoV Area (Peak Hipolito): 1.62 cm2, 1.62 cm2 AoV Area (VTI): 1.62 cm2, 1.62 cm2 Peak Velocity(Antegrade Flow): 1.49 m/s Peak Gradient(Antegrade Flow): 8.85 mm[Hg] Mean Velocity(Antegrade Flow): 0.96 m/s Mean Gradient(Antegrade Flow): 4.35 mm[Hg] Velocity Time Integral: 30.63 cm Tricuspid Valve Peak Velocity (Regurgitant Flow): 2.13 m/s, 2.24 m/s, 2.78 m/s Pulmonic Valve Mean Gradient: 1.25 mm[Hg], 1.33 mm[Hg] Mean Velocity: 0.53 m/s, 0.53 m/s Peak Velocity: 0.77 m/s Peak Gradient: 2.15 mm[Hg], 2.60 mm[Hg] Right Atrium Right Atrium Systolic Pressure: 100.28 ml, 100.28 ml Dictated by: Sammi Khanna M.D. on 06/13/2025 at 12:11 Approved by: Sammi Khanna M.D. on 06/13/2025 at 12:17
--- NOTE | 2025-06-13 09:10 | CM.NOTE ---
Rounds made with Dr. Cervantes, discussed with pt reason for hospital admission and further testing needed for today. Teleneuro will also consult for further recommendations. PT recommends outpatient PT, order received from Dr. Cervantes and pt in agreement. Dr. Cervantes will also reach out to pt's for updates.
--- NOTE | 2025-06-13 10:35 | CM.NOTE ---
Clarified status with Dr. Cervantes, pt will be and OBS status will possible discharge to home today.
--- NOTE | 2025-06-13 10:51 | PM.IMHP1 ---
Internal Medicine - H&P: HPI History of Present Illness Chief complaint: SLURRING WORDS TIA Narrative: This is a 85-year-old male with past medical history of previous TIA, A-fib on warfarin, type 2 diabetes, history of syncope, lumbar spondylosis, hyponatremia, dyslipidemia, here for strokelike symptoms reported by the ED as well as the nighttime hospitalist who admitted the patient. Please be aware I am see the patient for the first time today. History was admitted from the patient he is hard of hearing and does not remember what happened states that he was just brought to the hospital as his was worried about him. He states to me that he has been having issues with his speech for long time after that, I spoke to his , Leelee who states that this has happened 3 times in the last year and a half. He has a problem with his sodium where when it goes down he becomes confused. The last time this happened with him his PCP put him on sodium pills. Last week, he fell and broke his nose, he came in to our facility for epistaxis and was sent to [facility], was told not to use his sodium pills, and he was given urea that he was using. She mentions that since he started his urea tablets, he was not feeling right. Yesterday she noticed that her is speaking slower, so she was worried that something was wrong, and decided to bring him to the hospital. In the ED, patient's labs were insignificant whether CBC and CMP. CT head without contrast showed no acute intracranial normality it did show chronic small vessel and central involutional changes and remote areas of left parietal stroke. CTA of the neck and brain showed overall mild diffuse atherosclerotic disease but no large vessel occlusion or hemodynamically significant stenosis. Case was discussed with [facility] stroke team as per ED and signout and they deemed the patient not eligible for any TNK patient's symptoms resolved as per the ED physician on arrival to the ED. I will see the patient for the first time today, he is alert and x 3 does not have any focal deficits. Speech was normal. Review of Systems ROS Narrative limited due to pt's hard of hearing and not sure why he is here [facility] Medical History Adult hypothyroidism ?E03.9 - Hypothyroidism, unspecified (ICD-10) Hyponatremia ?E87.1 - Hypo-osmolality and hyponatremia (ICD-10) Paroxysmal atrial fibrillation ?I48.0 - Paroxysmal atrial fibrillation (ICD-10) Type 2 diabetes mellitus with hyperglycemia ?E11.65 - Type 2 diabetes mellitus with hyperglycemia (ICD-10) Syncope ?R55 - Syncope and collapse (ICD-10) Abrasion of scalp ?S00.01XA - Abrasion of scalp, initial encounter (ICD-10) Closed head injury ?S09.90XA - Unspecified injury of head, initial encounter (ICD-10) Laceration of scalp ?S01.01XA - Laceration without foreign body of scalp, initial encounter (ICD-10) Low back pain ?M54.50 - Low back pain, unspecified (ICD-10) Lumbar spondylosis ?M47.816 - Spondylosis without myelopathy or radiculopathy, lumbar region (ICD-10) Thoracic back pain ?M54.6 - Pain in thoracic spine (ICD-10) 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 - Other specified mononeuropathies (ICD-10) Paresthesias in right hand ?R20.2 - Paresthesia of skin (ICD-10) Foreign body in right ear ?T16.1XXA - Foreign body in right ear, initial encounter (ICD-10) Hyponatremia ?E87.1 - Hypo-osmolality and hyponatremia (ICD-10) Hypomagnesemia ?E83.42 - Hypomagnesemia (ICD-10) RADHA (acute kidney injury) ?N17.9 - Acute kidney failure, unspecified (ICD-10) Influenza ?J11.1 - Influenza due to unidentified influenza virus with other respiratory manifestations (ICD-10) Hypomagnesemia ?E83.42 - Hypomagnesemia (ICD-10) Acute hyponatremia ?E87.1 - Hypo-osmolality and hyponatremia (ICD-10) Acute confusion ?R41.0 - Disorientation, unspecified (ICD-10) Diabetes ?E11.9 - Type 2 diabetes mellitus without complications (ICD-10) High cholesterol ?E78.00 - Pure hypercholesterolemia, unspecified (ICD-10) Atrial fibrillation ?I48.91 - Unspecified atrial fibrillation (ICD-10) Surgical History Hx of carpal tunnel repair ?Z98.890 - Other specified postprocedural states (ICD-10) Family History Father Family history of myocardial infarction Family history of hypertension Mother Family history of cancer Family history of diabetes mellitus Social History (Updated 06/12/25 @ 22:04 by Edda Yap RN) Within the past year, how often did you have a drink containing alcohol: 2-4 times a month Smoking status: Never smoker Second hand tobacco smoke exposure: No Non-prescribed substance use: denies use Known occupational exposures/hazards: No Highest level of school completed/degree received: high school graduate Are you now , , , , never or living with a partner: Little interest or pleasure in doing things: not at all Feeling down, depressed, or hopeless: not at all Feel stressed/tense/nervous/anxious/difficulty sleeping: not at all Gender Identity: male Gender Identity Comment: Unable to assess due to AMS, Expressive aphasia. Meds Home Medications and Allergies Home Medications ?Medication ?Instructions ?Recorded ?Confirmed ?Type glimepiride 2 mg tablet 2 mg PO DAILY 08/21/23 06/12/25 History levothyroxine 25 mcg tablet 25 mcg PO QAM 08/21/23 06/12/25 History pravastatin 40 mg tablet 40 mg PO DAILY 08/21/23 06/12/25 History tamsulosin 0.4 mg capsule 0.4 mg PO DAILY 08/21/23 06/12/25 History warfarin 5 mg tablet (Jantoven) 5 mg PO MOWEFRSA@1700 08/21/23 06/13/25 History warfarin 2.5 mg tablet (Jantoven) 2.5 mg PO SUTUTH@1700 08/22/23 06/13/25 History finasteride 5 mg tablet 5 mg PO DAILY 11/13/23 06/12/25 History coenzyme Q10 100 mg capsule (Co 100 mg PO DAILY 08/13/24 06/12/25 History Q-10) gabapentin 300 mg capsule 300 mg PO DAILY 08/13/24 06/12/25 History vitamin B complex (B-Complex 1 tab PO DAILY 08/13/24 06/12/25 History tablet) omeprazole 40 mg capsule,delayed 40 mg PO .QD 06/12/25 06/13/25 History release atenolol 25 mg tablet 12.5 mg PO DAILY 06/13/25 06/13/25 History lisinopril 10 mg tablet 10 mg PO .QD 06/13/25 06/13/25 History meloxicam 7.5 mg tablet 7.5 mg PO .QD 06/13/25 06/13/25 History Allergies Allergy/AdvReac Type Severity Reaction Status Date / Time No Known Drug Allergies Allergy Verified 06/12/25 18:03 Exam Narrative Exam Narrative: General: Hard of hearing, pleasant, cooperative. Elderly male. The patient appears well and in no apparent distress. Patient is not toxic, lethargic, or listless Skin: Warm, dry, no pallor noted. There is no rash noted. No petechiae, purpura. Head: Normocephalic, atraumatic; no carotid bruits bilateral. No facial droop. Eye: Normal conjunctiva, no drainage, EOMI. PERRL Ears, Nose, Mouth, and Throat: oral mucosa is moist. Nares patent. Mouth without vesicles. Cardiovascular: Irregular irregular Rate and Rhythm, no murmur, gallop, rub Respiratory: Patient is in no distress, no accessory muscle use, lungs are clear to auscultation, no wheezing, rales or rhonchi Back: non-tender, no CVA tenderness bilaterally to percussion. No CT LS midline pain GI: no tenderness to palpation, no masses appreciated. No rebound, guarding, or rigidity noted. No distention Musculoskeletal: Patient has full range of motion of all of the extremities, no motor, sensory, or focal neurological deficits Neurological: A&O x2, hard of hearing, no aggressive expressive aphasia. No focal motor or sensory deficit. Cranial nerve 2-12 intact Constitutional Vital Signs, click to edit/add: Last Vital Signs Temp 98.3 F 06/13/25 07:43 Pulse 60 06/13/25 08:00 Resp 18 06/13/25 07:44 BP 146/77 H 06/13/25 07:43 Pulse Ox 95 06/13/25 07:43 O2 Del Method Room Air 06/13/25 07:43 Internal Medicine - H&P: Reslt Labs Labs: Short CBC 06/12/25 06/13/25 Range/Units 18:29 04:57 WBC 6.0 6.7 (4.0-11.0) 10^3/uL Hgb 11.6 L 11.8 L (14.0-18.0) g/dL Hct 32.9 L 33.9 L (42.0-54.0) % Plt Count 230 205 (150-450) 10^3/uL BMP 06/12/25 06/13/25 18:29 04:57 Sodium 134 L 133 L Potassium 4.1 4.5 Chloride 97 L 98 Carbon Dioxide 30.5 28.7 BUN 48.0 H 29.0 H Creatinine 0.92 0.83 Glucose 118 H 89 Calcium 9.3 8.9 Cardiac Enzymes 06/12/25 Range/Units 18:29 Total Creatine Kinase 86 (39-308) U/L Liver Function 06/12/25 06/13/25 Range/Units 18:29 04:57 Total Bilirubin 0.5 0.6 (0.2-1.0) mg/dL AST 26 27 (15-37) U/L ALT 26 23 (16-63) U/L Alkaline Phosphatase 97 87 (46-116) U/L Albumin 3.6 3.4 (3.4-5.0) g/dL Urine 06/12/25 Range/Units 19:15 Urine Color Lt. yellow (YELLOW) Urine Clarity Clear (CLEAR) Urine pH 7.0 (5.0-9.0) Ur Specific [place] 1.010 (1.005-1.025) Urine Protein Negative (NEG/TRACE) mg/dL Urine Glucose (UA) Negative (NEGATIVE) mg/dL Assessment and Plan Assessment and Plan (1) Ischemic cerebrovascular accident (CVA): (2) Subtherapeutic international normalized ratio (INR): (3) Epistaxis: (4) Closed head injury: Plan TIA? 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
--- NOTE | 2025-06-13 11:23 | CM.NOTE ---
manager mining into room to discuss with pt order for outpatient PT and speech at discharge. Pt is very EMMONAK and having difficulty understanding on reasoning for outpatient PT and Speech. Pt requests Case management calls his . Called pt's on discharge planning and outpatient PT and speech therapy at discharge. Pt's focusing on pt's low sodium and reason for changing sodium tablets by PCP. Unable to answer some of 's questions regarding changes in medications. Encouraged to come in and speak with hospitalist and be here when teleneuro consults with pt to better understand diagnosis and treatment for pt. Pt will come in within the hour.
[2025-06-13] MEDS: GLIMEPIRIDE 2 MG TABLET 1 MG PO (12:03)
[2025-06-13] MEDS: TAMSULOSIN HCL 0.4 MG CAPSULE PO (12:03)
[2025-06-13] MEDS: ATORVASTATIN CALCIUM 10 MG TABLET PO (12:03)
[2025-06-13] MEDS: ATENOLOL 25 MG TABLET PO (12:04)
[2025-06-13] MEDS: GABAPENTIN 300 MG CAPSULE PO (12:04)
[2025-06-13] MEDS: FINASTERIDE 5 MG TABLET PO (12:04)
[2025-06-13] MEDS: PANTOPRAZOLE SODIUM 40 MG TABLET.DR PO (13:17)
[2025-06-13 15:07] LABS: INR 1.25; Prothrombin Time 13.0 sec (9.0-11.6)
--- NOTE | 2025-06-13 15:54 | CM.NOTE ---
Case Management back in to speak with . Pt is having MRI at this time. Questions answered and was able to speak with telewilberuro and Dr. Cervantes for diagnosis and plan of care.
--- NOTE | 2025-06-13 17:11 | P.DS_ITS ---
DS: Providers Provider Date of admission: 06/12/25 21:18 Primary care physician: Britt Mcneill NP Consults: 06/12/25 17:55 Consult to Telestroke Routine Reason for consultation: slurred speech Has provider been notified: No 06/12/25 22:34 Occupational Therapy Eval and Treat Routine Reason for consultation: TIA Physical Therapy Eval and Treat Routine Reason for consultation: TIA 06/12/25 22:43 Consult to TeleNeurology Routine Reason for consultation: TIA 06/12/25 22:45 Speech Therapy Eval and Treat Routine Reason for consultation: Swallow eval. Discharging clinician: Thalia Cervantes Anticipated date of discharge: 06/13/25 DS: Diagnosis Discharge Diagnosis (1) Ischemic cerebrovascular accident (CVA): (2) Subtherapeutic international normalized ratio (INR): (3) Epistaxis: (4) Closed head injury: DS: Summary Hospital Course Hospital Course: This is a 85-year-old male with past medical history of previous TIA, A-fib on warfarin, type 2 diabetes, history of syncope, lumbar spondylosis, hyponatremia, dyslipidemia, here for strokelike symptoms reported by the ED as well as the nighttime hospitalist who admitted the patient. Please be aware I am see the patient for the first time today. History was admitted from the patient he is hard of hearing and does not remember what happened states that he was just brought to the hospital as his was worried about him. He states to me that he has been having issues with his speech for long time after that, I spoke to his , Leelee who states that this has happened 3 times in the last year and a half. He has a problem with his sodium where when it goes down he becomes confused. The last time this happened with him his PCP put him on sodium pills. Last week, he fell and broke his nose, he came in to our facility for epistaxis and was sent to [facility], was told not to use his sodium pills, and he was given urea that he was using. She mentions that since he started his urea tablets, he was not feeling right. Yesterday she noticed that her is speaking slower, so she was worried that something was wrong, and decided to bring him to the hospital. In the ED, patient's labs were insignificant whether CBC and CMP. CT head without contrast showed no acute intracranial normality it did show chronic small vessel and central involutional changes and remote areas of left parietal stroke. CTA of the neck and brain showed overall mild diffuse atherosclerotic disease but no large vessel occlusion or hemodynamically significant stenosis. Case was discussed with [facility] stroke team as per ED and signout and they deemed the patient not eligible for any TNK patient's symptoms resolved as per the ED physician on arrival to the ED. I will see the patient for the first time today, he is alert and x 3 does not h ave any focal deficits. Speech was normal. TIA? A-fib on warfarin recent history of epistaxis Frailty -Patient admitted to medical floor telemetry - Obtain echo and MRI brain without contrast - Following up with neurology from [place] today, in regards to whether the patient will need antiplatelet therapy given that he is already on warfarin -PT/OT saw the pt, recommended outpatient PT -Discussed the plan with his , answered all her questions -Passed STENOGRAPHER SECRETARY, appreciate their recs and will be followed -Later on, I spoke to neurology from [facility], they recommended MR brain, and to bridge pt on warfarin and aspirin until the INR is therapeutic between 2 and 3. I had a discussion regarding the plan with the pt, his , and his friend at bedside. MR brain without contrast showed: [id number] chronic small ischemic disease Central involutional change. Negative acute intracranial process by MRI. Echo was done 06/13/2025 showed: 1. Global left ventricular systolic function is normal; visually estimated ejection fraction is 55 to 60% 2. The right ventricle is moderately dilated with reduced systolic function 3. Mild left ventricular hypertrophy 4. Biatrial dilatation 5. Moderate to severe tricuspid regurgitation 6. Agitated saline contrast does not reveal any intracardiac shunt As per Neurology recommendations, will bridge the pt on aspirin 81 mg PO daily, and I spoke in details to pharmacy in regards to the plan about his warfarin and INR check. Pharmacy will see him on Tuesday in the coumadin clinic to appropriately dose his warfarin according to his INR that will be checked on that day. Pharmacy suggested giving Dariel additional 2.5 mg PO warfarin, total of 5 mg tonight to help boost his INR. He will follow up with his PCP on 06/19/2025 as well. Discussed the plan in details with the pt and his friend and . Also, pt was seen by PT/OT and they recommended outpatient PT therapy, a script of which was signed. I discussed the plan with the pt and his family members in details. Status at Discharge Overall status at discharge: patient is back to baseline Time Spent with Patient Time attestation: Total time spent providing and/or coordinating discharge services: Exam Constitutional Vital Signs, click to edit/add: Last Vital Signs Temp 97.8 F 06/13/25 16:00 Pulse 52 L 06/13/25 16:00 Resp 18 06/13/25 16:00 BP 144/74 H 06/13/25 16:00 Pulse Ox 98 06/13/25 16:00 O2 Del Method Room Air 06/13/25 16:00 DS: Data Data Completed and Pending Labs on day of discharge: Labs from last 24 hours 06/13/25 06/13/25 06/13/25 16:49 14:03 12:10 WBC RBC Hgb Hct MCV MCH MCHC RDW Plt Count MPV Neut % (Auto) Lymph % (Auto) Mckinley % (Auto) Eos % (Auto) Baso % (Auto) Neut # (Auto) Lymph # (Auto) Mckinley # (Auto) Eos # (Auto) Baso # (Auto) Abs Immat Gran (auto) Imm/Tot Granulo (auto) PT 13.0 H INR 1.25 APTT Sodium Potassium Chloride Carbon Dioxide Anion Gap BUN Creatinine Est GFR ( Amer) Est GFR (Non-Af Amer) BUN/Creatinine Ratio Glucose Calcium Phosphorus Magnesium Total Bilirubin AST ALT Alkaline Phosphatase Total Creatine Kinase Troponin I High Sens Total Protein Albumin Globulin Albumin/Globulin Ratio Triglycerides Cholesterol LDL Cholesterol, Calc VLDL Cholesterol HDL Cholesterol Cholesterol/HDL Ratio TSH Urine Color Urine Clarity Urine pH Ur Specific [place] Urine Protein Urine Glucose (UA) Urine Ketones Urine Occult Blood Urine Nitrite Urine Bilirubin Urine Urobilinogen Ur Leukocyte Esterase Urine RBC Urine WBC Ur Squamous Epith Cells Urine Crystals Urine Bacteria Urine Casts Urine Mucus Ur Culture Indicated? POC Glucose 94 114 H 06/13/25 06/12/25 06/12/25 04:57 19:15 18:29 WBC 6.7 6.0 RBC 3.83 L 3.65 L Hgb 11.8 L 11.6 L Hct 33.9 L 32.9 L MCV 88.5 90.1 MCH 30.8 31.8 MCHC 34.8 35.3 H RDW 13.1 12.9 Plt Count 205 230 MPV 10.8 10.3 Neut % (Auto) 54.5 45.8 Lymph % (Auto) 30.6 36.8 Mckinley % (Auto) 7.6 9.0 Eos % (Auto) 6.2 7.0 Baso % (Auto) 1.0 1.2 Neut # (Auto) 3.7 2.7 Lymph # (Auto) 2.1 2.2 Mckinley # (Auto) 0.5 0.5 Eos # (Auto) 0.4 0.4 Baso # (Auto) 0.1 0.1 Abs Immat Gran (auto) 0.01 0.01 Imm/Tot Granulo (auto) 0.1 0.2 PT 12.1 H INR 1.16 APTT 26.6 Sodium 133 L 134 L Potassium 4.5 4.1 Chloride 98 97 L Carbon Dioxide 28.7 30.5 Anion Gap 10.8 10.6 BUN 29.0 H 48.0 H Creatinine 0.83 0.92 Est GFR ( Amer) >60 >60 Est GFR (Non-Af Amer) >60 >60 BUN/Creatinine Ratio 34.9 52.2 Glucose 89 118 H Calcium 8.9 9.3 Phosphorus 3.0 Magnesium 2.1 1.6 L Total Bilirubin 0.6 0.5 AST 27 26 ALT 23 26 Alkaline Phosphatase 87 97 Total Creatine Kinase 86 Troponin I High Sens 6.7 Total Protein 6.5 6.8 Albumin 3.4 3.6 Globulin 3.1 3.2 Albumin/Globulin Ratio 1.1 1.1 Triglycerides 79 Cholesterol 142 LDL Cholesterol, Calc 81.2 VLDL Cholesterol 15.8 HDL Cholesterol 45 Cholesterol/HDL Ratio 3.2 TSH 1.907 Urine Color Lt. yellow Urine Clarity Clear Urine pH 7.0 Ur Specific [place] 1.010 Urine Protein Negative Urine Glucose (UA) Negative Urine Ketones Negative Urine Occult Blood Negative Urine Nitrite Negative Urine Bilirubin Negative Urine Urobilinogen 0.2 Ur Leukocyte Esterase Negative Urine RBC None seen Urine WBC None seen Ur Squamous Epith Cells Rare Urine Crystals None seen Urine Bacteria None seen Urine Casts None seen Urine Mucus None seen Ur Culture Indicated? No POC Glucose 06/12/25 17:58 WBC RBC Hgb Hct MCV MCH MCHC RDW Plt Count MPV Neut % (Auto) Lymph % (Auto) Mckinley % (Auto) Eos % (Auto) Baso % (Auto) Neut # (Auto) Lymph # (Auto) Mck[place] # (Auto) Eos # (Auto) Baso # (Auto) Abs Immat Gran (auto) Imm/Tot Granulo (auto) PT INR APTT Sodium Potassium Chloride Carbon Dioxide Anion Gap BUN Creatinine Est GFR ( Amer) Est GFR (Non-Af Amer) BUN/Creatinine Ratio Glucose Calcium Phosphorus Magnesium Total Bilirubin AST ALT Alkaline Phosphatase Total Creatine Kinase Troponin I High Sens Total Protein Albumin Globulin Albumin/Globulin Ratio Triglycerides Cholesterol LDL Cholesterol, Calc VLDL Cholesterol HDL Cholesterol Cholesterol/HDL Ratio TSH Urine Color Urine Clarity Urine pH Ur Specific [place] Urine Protein Urine Glucose (UA) Urine Ketones Urine Occult Blood Urine Nitrite Urine Bilirubin Urine Urobilinogen Ur Leukocyte Esterase Urine RBC Urine WBC Ur Squamous Epith Cells Urine Crystals Urine Bacteria Urine Casts Urine Mucus Ur Culture Indicated? POC Glucose 117 H Discharge Plan Discharge Disposition: Home, Self-Care Condition: Fair Discharge Medications: New aspirin 81 mg Tablet,Delayed Release (Dr/Ec) 81 mg PO QD 5 Days Qty: 5 0RF Continued glimepiride 2 mg tablet 2 mg PO DAILY levothyroxine 25 mcg tablet 25 mcg PO QAM pravastatin 40 mg tablet 40 mg PO DAILY tamsulosin 0.4 mg capsule 0.4 mg PO DAILY warfarin [Jantoven] 5 mg tablet 5 mg PO MOWEFRSA@1700 warfarin [Jantoven] 2.5 mg tablet 2.5 mg PO SUTUTH@1700 omeprazole 40 mg capsule,delayed release(DR/EC) 40 mg PO .QD atenolol 25 mg Tablet 12.5 mg PO DAILY finasteride 5 mg tablet 5 mg PO DAILY gabapentin 300 mg capsule 300 mg PO DAILY coenzyme Q10 [Co Q-10] 100 mg capsule 100 mg PO DAILY vitamin B complex [B-Complex] Tablet 1 tab PO DAILY Discontinued lisinopril 10 mg tablet 10 mg PO .QD meloxicam 7.5 mg tablet 7.5 mg PO .QD Print Language: Croatian Activity Restrictions/Additional Instructions: You are started on aspirin 81 mg once daily for now, I am giving you the aspirin as recommended by the neurology team at [facility]. Continue you warfarin as instructed to. You will come back on Tuesdayjune 17 to the coumadin clinic to get your warfarin level checked, I am giving you a slip for that Follow up with your Primary care physician as scheduled or sooner as needed Come back to the ED if you develop weakness or slurred speech While on warfarin watch for any falls or head trauma Start your sodium tablets as soon as you are discharged Mechanical Designer/Food Clerk Instructions: Pt given outpatient order for PT and Speech Forms: Portal Instructions Follow Up Appointments: 06/19 @ 1:40pm with Britt Mcneill NP [phone]
[2025-06-13] MEDS: ASPIRIN 81 MG TABLET.DR PO (17:45)
[2025-06-13] MEDS: WARFARIN SODIUM 5 MG TABLET PO (17:45)
--- NOTE | 2025-06-14 08:57 | SWNOTE1 ---
SW spoke to pharmacy and confirmed pt's nurse spoke to pharmacy yesterday and pt is to return on Tuesday to have his INR checked. JACQUELYN also confirmed that pt has an appointment already scheduled [facility].
--- NOTE | 2025-06-14 14:12 | CM.DCFOLLOWU ---
1st attempt 06/14/25, no answer
== END 2025-06-13 18:45 | disposition home or self-care (01) ==
LOC: ER 20:56 → MS 21:27
PROVIDERS: Internal Medicine; Admitting Provider Student in an Organized Health Care Education/Training Program; Emergency Provider Emergency Medicine; PCP Nurse Practitioner Family; Visit Provider Student in an Organized Health Care Education/Training Program
DX: I63.9 Cerebral infarction, unspecified (principal); I48.0 Paroxysmal atrial fibrillation; Z79.01 Long term (current) use of anticoagulants; R79.1 Abnormal coagulation profile; Z86.73 Personal history of transient ischemic attack (TIA), and cerebral infarction without residual deficits; E11.9 Type 2 diabetes mellitus without complications; Z79.84 Long term (current) use of oral hypoglycemic drugs; E78.5 Hyperlipidemia, unspecified; M47.816 Spondylosis without myelopathy or radiculopathy, lumbar region; S09.8XXD Other specified injuries of head, subsequent encounter; W19.XXXD Unspecified fall, subsequent encounter; I07.1 Rheumatic tricuspid insufficiency
CPT/HCPCS: 36415; 70450; 70496; 70498; 70551; 71045; 80053; 80061; 81001; 82550; 82948; 83735; 84100; 84443; 84484; 85025; 85610; 85730; 92610; 93005; 93306; 96365; 96375; 97161; 97165; 97535; 99285; G0378; J3360; J3475; Q9967

== ENCOUNTER 2025-06-14 01:45 | Outpatient (RCR) | payer MEDICARE, SELFPAY | END 2025-07-11 12:44 | disposition home or self-care (01) | LOC: MM 01:45 | PROVIDERS: PCP Nurse Practitioner Family; Visit Provider Internal Medicine | DX: Z51.81 Encounter for therapeutic drug level monitoring (principal); Z79.01 Long term (current) use of anticoagulants; I48.20 Chronic atrial fibrillation, unspecified | CPT/HCPCS: 85610; G0463 ==

== ENCOUNTER 2025-06-17 11:16 | Emergency (ER) | payer MEDICARE, SELFPAY ==
--- OUTSIDE RECORDS SUMMARY | 2025-06-02 10:01 | XMS_ITS | Encounter Summary ---
Author Organization [employer] [facility] Address [address], [address] [place] [address] Care Team Providers Care Rn Camp Name Role Phone JulesSoledad figueroa RETAIL BUYER - MOTORBOAT MECHANIC Primary Care Provider [phone] Reason for Visit * Auth/Cert (Routine) Specialty Diagnoses / Procedures Referred By Samuel reese Referred To Contact Diagnoses Epistaxis Nasal fracture Fracture of nasal bones, initial encounter for closed fracture Beto Hedrick DO [address] [address] Phone: tel: fax: [facility] [address] [place] [address] Referral ID Status Reason Start Date Expiration Date Visits Re quested Visits Authorized [id number] 1 1 Encounter Details Date Type Department Care Team (Latest Contact Info) Description 06/02/2025 10:01 AM EDT - 06/05/2025 6:50 PM EDT Hospital Encounter [facility]- MICU [address] [place], [place] [id number] Jack Monet, DO [address] [place] [address] Jermaine Pina DO [address] [place] [address] [phone] Beto Hedrick DO [address] [place] [address] Flaco Ren MD [address] [address] Hyponatremia (Primary Dx) Discharge Disposition: Home or Self Care Social History Tobacco Use Types Packs/Day Years Used Date Smoking Tobacco: Never Smokeless Tobacco: Never Tobacco Cessation:Counseling Given: Not Answered Alcohol Use Standard Drinks/Week Comments Never 0 (1 standard drink = 0.6 oz pur e alcohol) [facility] Utilities Answer Date Recorded In the past 12 months has th e electric, gas, oil, or water company threatened to shut off services in your home? No 06/02/2025 Hunger Vital Sign Answer Date Recorded Within the past 12 months, y ou worried that your food would run out before you got the money to buy more. Never true 06/02/20 Within the past 12 months, t he food you bought just didn't last and you didn't have money to get more. Never true 06/02/2025 PRAPARE - Transportation Answer Date Re corded In the past 12 months, has l ack of transportation kept you from medical appointments or from getting medications? No 05/15 In the past 12 months, has l ack of transportation kept you from meetings, work, or from getting things needed for daily living? No 06/02/2025 Housing Stability Vital Sign Answer Rajesh e Recorded In the last 12 months, was t here a time when you were not able to pay the mortgage or rent on time? No 06/02/2025 In the past 12 months, how m any times have you moved where you were living? 0 06/02/2025 At any time in the [facility], were you homeless or living in a half-way (including now)? No 06/02/2025 Food Insecurity Answer Date Recorded Within the past 12 months, y ou worried that your food would run out before you got the money to buy more. 1 06/02/2025 Within the past 12 months, t he food you bought just didn't last and you didn't have money to get more. 1 06/02/2025 Interpersonal Safety Domain Source: IP Abuse Scr eening Answer Date Recorded Physical abuse Denies 06/02/2025 Verbal abuse Denies 06/02/2025 Emotional abuse Denies 06/02/2025 Financial abuse Denies 06/02/2025 Sexual abuse Denies 06/02/2025 Sex and Gender Information Value Date Recorded Sex Assigned at Not on file Legal Sex Male 3:42 PM EDT Gender Identity Not on file Sexual Orientation Not on file documented as of this encounter Last Filed Vital Signs Vital Sign Reading Time Taken Comments Blood Pressure 110/47 06/05/2025 3:00 PM EDT Pulse 71 06/05/2025 3:00 PM EDT Temperature 36.5 C (97.7 F) 06/05/2025 1:00 PM EDT Respiratory Rate 15 06/05/2025 3:00 PM EDT Oxygen Saturation 100% 06/05/2025 6:30 AM EDT Inhaled Oxygen Concentration - - Weight 83.7 kg (184 lb 8.4 oz) 06/05/2025 4:00 A M EDT Height 177.8 cm (5' 10 ) 06/02/2025 10:06 AM EDT Body Mass Index 26.48 06/02/2025 10:06 AM EDT documented in this encounter Discharge Summaries * Flaco Ren MD - 06/05/2025 3:29 PM EDT [facility] Department of Internal Medicine - Critical Care Service INPATIENT DISCHARGE SUMMARY PATIENT IDENTIFICATION: NAME: Dariel Aguilera : 1940 Acct: [id number] Admit Date: 06/02/2025 Discharge date: 06/05/2025 6:50 PM Attending Provider: Flaco Ren MD Principal Problem: Fracture of nasal bones, initial encounter for closed fracture Active Problems: Epistaxis Atrial fibrillation (HCC) Essential hypertension Benign prostatic hyperplasia Diabetes mellitus (HCC) Hypothyroidism (acquired) Secondary hypercoagulable state Anticoagulated on Coumadin Hyponatremia Toxic metabolic encephalopathy SIADH (syndrome of inappropriate ADH production) History of hypothyroidism Resolved Problems: * No resolved hospital problems. * REASON FOR HOSPITALIZATION: No chief complaint on file. Hospital Course Dariel Aguilera is a 85 y.o. with past medical history of A-fib on Coumadin, hypertension, type 2 diabetes, BPH, SIADH, hyponatremia, hypothyroidism who initially presented as a transfer from outlying facility for recurrent epistaxis after a fall which resulted in nasal bone fracture. [facility] and was treated with Afrin and nasal pressure, patient wasdischarged home with ENT follow-up. When patient returned home he blew his nose and resulted in brisk bleeding from the left nare prompting him to return to the ER yesterday evening. He had bilateralnasal packing with Rhino Rocket's placed and was transferred to [facility] for ENT evaluation. Patient was seen by ENT upon arrival and had bilateral nasal packing and Rhino Rocket's deflated, recommended keeping nasal passages moist with saline sprays. No epistaxis observed after deflation. 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 On arrival patient was found to have a sodium of 129 which has steadily dropped. Nephrology was consulted for acute hyponatremia. Patient does take salt tabs 1 g3 times daily at home, this was increased to 2 g today by nephrology with fluid restriction of 1.2 L. Repeat sodium today was 117, nephrology started patient on 3% saline infusion and recommended transfer to medical ICU for further management. In the ICU the patient was treated with fluid restriction, close monitoring with BMP every 4 hours, received tolvaptan, patient's sodium improved to his baseline. Since patient has no more epistaxis and his sodium improved, he was being discharged with instructions to take urea instead of sodium which helps to maintain his sodium levels. Consults: nephrology, neurology, and Otolaryngology Procedures: Nasal packing and removal Any Hospital Acquired Infections: None PATIENT'S DISCHARGE CONDITION: stable PATIENT/FAMILY INSTRUCTIONS: Current Discharge Medication List CONTINUE these medications which have NOT CHANGED Details gabapentin (NEURONTIN) 300 MG capsule Take 1 capsule by mouth daily. glimepiride (AMARYL) 2 MG tablet Take 1 tablet by mouth every morning (before breakfast) levothyroxine (SYNTHROID) 25 MCG tablet Take 1 tablet by mouth Daily pravastatin (PRAVACHOL) 40 MG tablet Take 1 tablet by mouth daily tamsulosin (FLOMAX) 0.4 MG capsule Take 1 capsule by mouth daily !! warfarin (COUMADIN) 5 MG tablet Take 1 tablet by mouth daily Tuesday, Tuesday, !! warfarin (COUMADIN) 2.5 MG tablet Take 1 tablet by mouth daily Tuesday, Tuesday, , Tuesday finasteride (PROSCAR) 5 MG tablet Take 1 tablet by mouth daily atenolol (TENORMIN) 25 MG tablet Take 1 tablet by mouth daily SODIUM CHLORIDE PO Take 1,000 mg by mouth 3 times daily coenzyme Q-10 100 MG capsule Take 1 capsule by mouth daily cyclobenzaprine (FLEXERIL) 10 MG tablet Take 1 tablet by mouth 3 times daily as needed for Muscle spasms b complex vitamins capsule Take 1 capsule by mouth daily omeprazole (PRILOSEC) 20 MG delayed release capsule Take 2 capsules by mouth daily sildenafil (VIAGRA) 100 MG tablet Take 1 tablet by mouth as needed for Erectile Dysfunction !! - Potential duplicate medications found. Please discuss with provider. Activity: activity as tolerated Diet: regular diet Disposition: home Follow-up: in 1 weeks with PCP, in 1 weeks chemical treatment operator Time Spent on discharge is more than 15 minutes in the examination, evaluation, counseling and review of medications and discharge plan. Pepito Grant MD Internal Medicine Resident Critical Care Service documented in this encounter Discharge Instructions * Discharge Instructions* Pepito Grant MD - 06/05/2025 12:05 PM EDT You were admitted in the ICU for very low sodium and bleeding from nose due to bone fracture since you are on blood thinner. Your bleeding has been controlled and your sodium improved. Please stop taking sodium tablets and start taking urea 15 g packets once daily which help with your low sodium levels Please continue to take antibiotic Keflex for 4 more days as instructed on the after visit summary You were started on blood pressure medication lisinopril 10 mg to control your blood pressures strictly along with your home medication, continue to take it. Please follow-up with your Coumadin clinic for adjustment of your warfarin dose based on your INR which has to be between 2-3 Please follow-up with your PCP and chemical treatment operator (kidney doctor )for continued care Please go to the nearest ER if you have worsening of current symptoms or started experiencing new symptoms like shortness of breath, chest pain, palpitations, dizziness, loss of consciousness, any bleed from the nose for further evaluation management documented in this encounter Medications at Time of Discharge lisinopril (PRINIVIL;ZESTRI L) 10 MG tablet Take 1 tablet by mouth daily 30 tablet 1 06/06/2025 urea (URE-NA) 15 g PACK packet Take 15 g by mouth daily 30 each 06/06/2025 07/06/2025 urea (URE-NA) 15 g PACK packet Take 15 g by mouth daily 30 each 3 06/05/2025 urea (URE-NA) 15 g PACK packet Take 15 g by mouth daily 30 each 2 06/05/2025 urea (URE-NA) 15 g PACK packet Take 15 g by mouth daily 30 each 2 06/05/2025 gabapentin (NEURONTIN) 300 MG capsule Take 1 capsule by mouth daily. glimepiride (AMARYL) 2 MG tablet Take 1 tablet by mouth every morning (before breakfast) levothyroxine (SYNTHROID) 25 MCG tablet Take 1 tablet by mouth Daily pravastatin (PRAVACHOL) 40 MG tablet Take 1 tablet by mouth daily tamsulosin (FLOMAX) 0.4 MG capsule Take 1 capsule by mouth daily warfarin (COUMADIN) 5 MG tablet Take 1 tablet by mouth daily Tuesday, Tuesday, finasteride (PROSCAR) 5 MG tablet Take 1 tablet by mouth daily atenolol (TENORMIN) 25 MG tablet Take 1 tablet by mouth daily coenzyme Q-10 100 MG capsule Take 1 capsule by mouth daily b complex vitamins capsule Take 1 capsule by mouth daily omeprazole (PRILOSEC) 20 MG delayed release capsule Take 2 capsules by mouth daily cephALEXin (KEFLEX) 500 MG capsule Take 1 capsule by mouth every 8 hours for 4 days 12 capsule 06/05/2025 06/09/2025 documented as of this encounter Progress Notes * Flip Dubose RN - 06/05/2025 7:02 PM EDT Pt discharge- pt taken downstairs by wheelchair by son and by car [facility] . Son givenmed s, discharge instructions . Questions answered * Flip Dubose RN - 06/05/2025 5:58 PM EDT Pt status- neuro MOTORBOAT MECHANIC Nicole Musa called me in MICU few hrs ago. . Nicole spoke with Gladys , Kishore by phone. . Kishore is adament, despite Gulshan mild confusion, that she and her son want to drive Alexx back home to [place] to care for him at home tonight * Milagro Lloyd - 06/05/2025 5:56 PM EDT CLINICAL PHARMACY NOTE: MEDS TO BEDS Total # of Prescriptions Filled: 2 The following medications were delivered to the patient: Cephalexin 500mg Lisinopril 10mg Additional Documentation: delivered to patient in room 3008 06/05 at 5:15pm. Co- pay $0.71 srivastava. * Starr Jackman [facility] - 06/05/2025 11:30 AM EDT Pharmacy Note Warfarin Consult follow-up Recent Labs 06/05/25 0449 INR 1.9 Recent Labs 06/02/25 1308 06/03/25 0618 HGB 12.3* 12.3* HCT 36.5* 35.2* PLT 147 See Reflexed IPF Result Warfarin dose ORACLE MANAGER: 5 mg MWF and 2.5 mg all other days Indication: Afib Goal INR: 2-3 Current warfarin drug-drug interactions: cephalexin, pravastatin, levothyroxine Date INR Dose 06/02 1.9 2.5 mg 06/03 1.7 Per MAR, 5 mg dose was ordered but not administered d/t pt status 06/04 1.8 5 mg . 1.9 5 mg Notes: -INR remains subtherapeutic -Coumadin 5 mg this evening to outpatient therapy Will continue to follow. Starr Jackman PharmD [facility] 06/05/2025 11:23 AM * Venessa Najera, PT - 06/05/2025 10:32 AM EDT Physical Therapy Facility/Department: [facility] 3- MICU Physical Therapy Initial Evaluation Patient Name: Dariel Aguilera : 1940 Date of Service: 06/05/2025 recurrent epistaxis s/p fall Past Medical History: has a past medical history of Atrial fibrillation (HCC), Diabetes (HCC), Highcholesterol, Hyponatremia, Hypothyroidism, Lumbar spondylolysis, and Syncope. Past Surgical History: has a past surgical history that includes Carpal tunnel release. Discharge Recommendations Discharge Recommendations: No therapy recommended at discharge PT Equipment Recommendations Equipment Needed: No Other: pt has rw at home, adviced to use Assessment Body Structures, Functions, Activity Limitations Requiring Skilled Therapeutic Intervention: Decreased strength, Decreased endurance, Decreased balance, Decreased safe awareness Assessment: Pt able to ambulate 120 ft with rw and SBA, no loss of balance. Pt SBA for transfers with device. Supervision for bed mobility. Pt will benefit from continued therapy to improve functional mobility and balance, endurance. Therapy Prognosis: Good Decision Making: Low Complexity Requires PT Follow-Up: Yes Activity Tolerance Activity Tolerance: Patient tolerated evaluation without incident Safety Devices Type of Devices: Call light within reach, Gait belt, Left in chair AM-PAC AM-PAC Basic Mobility - Inpatient How much help is needed turning from your back to your side while in a flat bed without using bedrails?: None How much help is needed moving from lying on your back to sitting on the side of a flat bed withoutusing bedrails?: None How much help is needed moving to and from a bed to a chair?: None How much help is needed standing up from a chair using your arms?: None How much help is needed walking in hospital room?: A Little How much help is needed climbing 3-5 steps with a railing?: A Little AM-[facility] Inpatient Mobility Raw Score : 22 AM-[facility] Inpatient T-Scale Score : 53.28 Mobility Inpatient CMS 0-100% Score: 20.91 Mobility Inpatient [facility] G-Code Modifier : CJ Restrictions/Precautions Restrictions/Precautions Activity Level: Up as Tolerated Required Braces or Orthoses?: No Subjective General Chart Reviewed: Yes Patient assessed for rehabilitation services?: Yes Family/Caregiver Present: No Follows Commands: Within Functional Limits General General Comments: RN and pt agreeable to treatment session Subjective Subjective: Pt reports no pain, numbness or tingling. Pain Pre-Pain: 0 Post-Pain: 0 Home Setup/Prior Level of Function Social/Functional History Lives With: Spouse Type of Home: House Home Layout: One level Home Access: Stairs to enter with rails Entrance Stairs - Number of Steps: 1-front porch, 2 steps garage Entrance Stairs - Rails: Right Bathroom Shower/Tub: Walk-in shower Bathroom Equipment: None Home Equipment: Walker - Rolling Has the patient had two or more falls in the past year or any fall with injury in the past year?: No Receives Help From: Family Prior Level of Assist for ADLs: Independent Prior Level of Assist for Homemaking: Independent Homemaking Responsibilities: Yes (shared with spouse) Prior Level of Assist for Ambulation: Independent household ambulator, with or without device Prior Level of Assist for Transfers: Independent Active Surgical First Assistant: Yes Mode of Transportation: Truck Occupation: Retired Vision/Hearing Vision Vision: Within Functional Limits Hearing Hearing: Impaired Hearing Exceptions: Bilateral hearing aid (unable to locate) Objective Orientation Overall Orientation Status: Within Normal Limits Orientation Level: Oriented X4 Cognition Overall Cognitive Status: WNL Cognition Comment: forgetful, distracted by dowd catheter AROM RLE (degrees) RLE AROM: WFL AROM LLE (degrees) LLE AROM : WFL Strength RLE Strength RLE: WFL Strength LLE Strength LLE: WFL Mobility Bed mobility Supine to Sit: Supervision Sit to Supine: Supervision Scooting: Supervision Bed Mobility Comments: bed flat and rails down Transfers Sit to Stand: Supervision Stand to Sit: Supervision Comment: up to rw, unsteady without UE support Ambulation Surface: Level tile Device: Rolling Walker Assistance: Stand by assistance Quality of Gait: increases step length over distance Gait Deviations: Slow Shayna Distance: 150 ft More Ambulation?: No Stairs/Curb Stairs?: No Balance Balance Posture: Good Sitting - Static: Good Sitting - Dynamic: Good Standing - Static: Good;- Standing - Dynamic: Fair;+ Comments: standing balance with B UE support Patient Education Patient Education Education Given To: Patient Education Provided: Role of Therapy;Plan of Care Education Provided Comments: safety, use of rw Education Method: Verbal Barriers to Learning: None Education Outcome: Verbalized understanding Plan Physical Therapy Plan General Plan: (5-6x/week) Current Treatment Recommendations: Strengthening, Balance training, Functional mobility training, Transfer training, Endurance training, Stair training, Gait training, Therapeutic activities, Safety education & training, Patient/Caregiver education & training Goals Patient Goals Patient Goals : To return home Short Term Goals Time Frame for Short Term Goals: 4 visits Short Term Goal 1: Pt indep with bed mobility Short Term Goal 2: Pt indep with transfers with proper safety awareness Short Term Goal 3: Pt amb 200 ft with least restrictive device independently, no loss of balance Short Term Goal 4: Pt negotiate 4 stairs with SUP and rails, proper safety Short Term Goal 5: Pt tolerate 25 minutes ther ex and activity to improve balance and strength for functional mobility Minutes PT Individual Minutes Time In: 0951 Time Out: 1018 Minutes: 27 Time Code Minutes Timed Code Treatment Minutes: 10 Minutes * Jourdan Guan MD - 06/05/2025 10:28 AM EDT Images from the original note were not included. SUBJECTIVE Pt was seen and examined. Pt is hemodynamically stable on 3L of NC. Not on any pressors. UOP at 3.7L in 24 hrs, dowd catheter in place. Nasal packing was removed 2 days ago. No further bleeding noted. Labs reviewed. BMP showing sodium 126, potassium 4.5 which is hemolyzed, chloride 95, bicarb 19, anion gap 12, BUN 13 and creatine at 0.8. Calcium 9.2. Sodium yesterday at 121. INTERVAL HISTORY 85 y/o M w a PMHx of A-fib on Coumadin, HTN, T2DM, chronic hyponatremia due to SIADH with baseline creatine 129-130 on salt tablets who came into the ED s/p fall. He was found to have nose bleed for which rhinorocket was placed. While in the hospital his sodium dropped to 117 for which nephrology was consulted and pt was admitted to the ICU. Pt does take salt tablets at home for his hyponatremia which he was not taking whilein the hospital. Pt is currently asymptomatic. OBJECTIVE CURRENT TEMPERATURE: Temp: 97.5 ??F (36.4 ??C) MAXIMUM TEMPERATURE OVER 24HRS: Temp (24hrs), Av.7 ??F (36.5 ??C), Min:97.5 ??F (36.4 ??C), Max:98.1 ??F (36.7 ??C) CURRENT RESPIRATORY RATE: Respirations: 14 CURRENT PULSE: Pulse: 89 CURRENT BLOOD PRESSURE: BP: 100/71 24HR BLOOD PRESSURE RANGE: Systolic (24hrs), Av , Min:93 , Max:165 ; Diastolic (24hrs), Av, Min:30, Max:94 24HR INTAKE/OUTPUT: Intake/Output Summary (Last 24 hours) at 06/05/2025 1028 Last data filed at 06/05/2025 1012 Gross per 24 hour Intake 300 ml Output 3895 ml Net -3595 ml WEIGHT :Patient Vitals for the past 96 hrs (Last 3 readings): Weight 06/05/25 0400 83.7 kg (184 lb 8.4 oz) 06/04/25 0600 81.2 kg (179 lb 0.2 oz) 06/03/25 0730 78.2 kg (172 lb 6.4 oz) PHYSICAL EXAM GENERAL APPEARANCE:Awake, alert, in no acute distress SKIN: warm and dry, no rash or erythema EYES: conjunctivae normal and sclera anicteric ENT: no thrush no pharyngeal congestion NECK: No JVD. No carotid bruits and no carotid lymphadenopathy . PULMONARY: lungs are clear to auscultation. No Wheezing, no ronchi .normal Breath sounds. CADRDIOVASCULAR: S1 and S2 normally heard NO S3 and NO S4 . No rubs and no murmur. ABDOMEN: soft nontender, bowel sounds present, no organomegaly, no ascites EXTREMITIES: no cyanosis, clubbing or edema CURRENT MEDICATIONS sodium chloride tablet 2 g, TID lisinopril (PRINIVIL;ZESTRIL) tablet 10 mg, Daily sodium chloride flush 0.9 % injection 5-40 mL, 2 times per day sodium chloride flush 0.9 % injection 10 mL, PRN 0.9 % sodium chloride infusion, PRN potassium chloride (KLOR-CON M) extended release tablet 40 mEq, PRN Or potassium bicarb-citric acid (EFFER-K) effervescent tablet 40 mEq, PRN Or potassium chloride 10 mEq/100 mL IVPB (Peripheral Line), PRN magnesium sulfate 1000 mg in dextrose 5% 100 mL IVPB, PRN ondansetron (ZOFRAN-ODT) disintegrating tablet 4 mg, Q8H PRN Or ondansetron (ZOFRAN) injection 4 mg, Q6H PRN polyethylene glycol (GLYCOLAX) packet 17 g, Daily PRN acetaminophen (TYLENOL) tablet 650 mg, Q6H PRN Or acetaminophen (TYLENOL) suppository 650 mg, Q6H PRN glucose chewable tablet 16 g, PRN dextrose bolus 10% 125 mL, PRN Or dextrose bolus 10% 250 mL, PRN glucagon injection 1 mg, PRN dextrose 10 % infusion, Continuous PRN insulin lispro (HUMALOG,ADMELOG) injection vial 0-4 Units, 4x Daily AC & HS finasteride (PROSCAR) tablet 5 mg, Daily gabapentin (NEURONTIN) capsule 300 mg, Daily levothyroxine (SYNTHROID) tablet 25 mcg, Daily pantoprazole (PROTONIX) tablet 40 mg, QAM AC pravastatin (PRAVACHOL) tablet 40 mg, Daily tamsulosin (FLOMAX) capsule 0.4 mg, Daily cephALEXin (KEFLEX) capsule 500 mg, 3 times per day sodium chloride (OCEAN) 0.65 % nasal spray 2 spray, Q4H warfarin placeholder: dosing by pharmacy, RX Placeholder glipiZIDE (GLUCOTROL) tablet 5 mg, QAM AC atenolol (TENORMIN) tablet 25 mg, BID LABS CBC: Recent Labs 06/02/25 1308 06/03/25 0618 WBC 7.8 7.2 RBC 4.01* 3.98* HGB 12.3* 12.3* HCT 36.5* 35.2* MCV 91.0 88.4 MCH 30.7 30.9 MCHC 33.7 34.9* RDW 13.2 13.0 PLT 147 See Reflexed IPF Result MPV 11.3 -- BMP: Recent Labs 06/04/25 0703 06/04/25 1009 06/04/25 1423 06/04/25 2157 06/04/25 2229 06/05/25 0449 NA 119* 118* < > 122* 121* 126* K 4.6 4.8 < > 4.3 4.3 4.5 CL 88* 87* < > 90* 91* 95* CO2 19* 21 < > 20 21 19* BUN 11 11 -- -- -- 13 CREATININE 0.6* 0.7 -- -- -- 0.8 GLUCOSE 86 107* -- -- -- 112* CALCIUM 8.8 8.6 -- -- -- 9.2 < > = values in this interval not displayed. URINE OSMOLARITY: Lab Results Component Value Date/Time JES Andre 06/04/2025 01:00 AM ASSESSMENT Known history of chronic hyponatremia from SIADH baseline sodium 129-130 range is on salt tablets at home. Came to the hospital after a fall. Ended up having nosebleeds and Rhino Rocket's were placed. He did not get his old tablets in the hospital. Labs today showing sodium 126. 2. Epistaxis and nasal fracture status post Rhino Rocket likely from mechanical fall 3. A-fib on Coumadin 4. Hypertension 5. Type 2 diabetes 6. Hypothyroidism PLAN 1. May discontinue salt tablets, will give 1 dose of tolvaptan and consider starting him on urea 15g daily from tomorrow 2. Dowd catheter to be removed. 3. Electrolyte panel Q8 hr 4. BMP in the morning 5. Monitor I/O's 6. Will continue to follow 7. Ok to transfer out of the ICU when a bed is available. 8. Please wait for attending attestation. Deann Carter MD Internal Medicine Resident, PGY-2 [place], [place] 06/05/2025,10:28 AM Attending Physician Statement I have discussed the care of Dariel Aguilera, including pertinent history and exam findings with the resident/fellow. I have reviewed the rubin elements of all parts of the encounter with the resident/fellow. I have seen and examined the patient with the resident/fellow. I agree with the assessment and plan and status of the problem list as documented. Patient seen and examined. He is up in a recliner. He is without any acute symptoms other than feeling a little weak. His epistaxis has resolved. He still has some pain over the area of his nose bridge and right infraorbital area. Serum creatinine is stable, sodium level is up to 126. He apparently has chronic hyponatremia thought secondary to SIADH and low solute. He had been taking salt tablets at home but was asking about alternatives if any. Did receive a dose of tolvaptan yesterday . Sodium level is up to 126, will give him 1 additional dose of 7-1/2 mg of tolvaptan and will discontinue salt tablets at this time. Will start him on urea 15 g packet 1 daily from tomorrow. If sodium is stable he potentially can be discharged later home today or tomorrow whenever okay with primary team. He does follow-up with nephrology as an outpatient and he will continue to do so. Jourdan Guan MD , * Nicole Musa, THOMAS - DIRECTOR OF FOOD AND BEVERAGE SERVICES - 06/05/2025 7:52 AM EDT NEUROLOGY INPATIENT PROGRESS NOTE 06/05/2025 Current Exam: Chart reviewed. Discussed with RN. Overall patient feels well. He has no acute neurologic complaints. He is hoping to discharge home today. Sodium is trending up, most recent level 126. Brief History: Dariel Aguilera is a 85 y.o. male with H/O A-fib on Coumadin, HTN, DM, HLD, syncope, hyponatremia, who was admitted as a transfer from [facility] on 06/02/2025 where he initially presented with epistaxis. He initially presented to [facility] with recurrent epistaxis and was treated with Afrin, nasal pressure, and was discharged home with ENT follow-up. When he returned home he blew his no se which resulted in recurrence of bleeding prompting him to return to the ER. He had bilateral nasal packing with Rhino Rocket's and was transferred to [facility] for ENT evaluation. On arrival he was found to have a sodium of 129 which did continue to drop acutely during admission as low at 117; nephrology was consulted and the patient was admitted to the medical ICU for further management. He does have history of hyponatremia and is on salt tablets at home. On the morning of 06/04 he was reported as somnolent, only opening his eyes to his sternal rub. CT head was done showing no acute intracranial abnormality and neurology was consulted for further evaluation of AMS. Most recent sodium level atthat time was 119. He remains afebrile. He did receive a dose of Ativan the evening prior around 5 PM; nursing staff report he has been sedated since that time but has continued to gradually improve and has been alert for staff this morning. No current facility-administered medications on file prior to encounter. Current Outpatient Medications on File Prior to Encounter Medication Sig Dispense Refill gabapentin (NEURONTIN) 300 MG capsule Take 1 capsule by mouth daily. glimepiride (AMARYL) 2 MG tablet Take 1 tablet by mouth every morning (before breakfast) levothyroxine (SYNTHROID) 25 MCG tablet Take 1 tablet by mouth Daily pravastatin (PRAVACHOL) 40 MG tablet Take 1 tablet by mouth daily tamsulosin (FLOMAX) 0.4 MG capsule Take 1 capsule by mouth daily warfarin (COUMADIN) 5 MG tablet Take 1 tablet by mouth daily Tuesday, Tuesday, warfarin (COUMADIN) 2.5 MG tablet Take 1 tablet by mouth daily Tuesday, Tuesday, , Tuesday finasteride (PROSCAR) 5 MG tablet Take 1 tablet by mouth daily atenolol (TENORMIN) 25 MG tablet Take 1 tablet by mouth daily SODIUM CHLORIDE PO Take 1,000 mg by mouth 3 times daily coenzyme Q-10 100 MG capsule Take 1 capsule by mouth daily cyclobenzaprine (FLEXERIL) 10 MG tablet Take 1 tablet by mouth 3 times daily as needed for Muscle spasms b complex vitamins capsule Take 1 capsule by mouth daily omeprazole (PRILOSEC) 20 MG delayed release capsule Take 2 capsules by mouth daily sildenafil (VIAGRA) 100 MG tablet Take 1 tablet by mouth as needed for Erectile Dysfunction Allergies: Dariel Aguilera has no known allergies. Past Medical History: Diagnosis Date Atrial fibrillation (HCC) Diabetes (HCC) High cholesterol Hyponatremia Hypothyroidism Lumbar spondylolysis Syncope Past Surgical History: Procedure Laterality Date CARPAL TUNNEL RELEASE Social History: Dariel Aguilera reports that he has never smoked. He has never used smokeless tobacco. He reports that he does not drink alcohol and does not use drugs. History reviewed. No pertinent family history. Objective: BP (!) 130/56 Pulse 67 Temp 98.1 ??F (36.7 ??C) (Axillary) Resp 15 Ht 1.778 m (5' 10 ) Wt83.7 kg (184 lb 8.4 oz) SpO2 100% BMI 26.48 kg/m?? Blood pressure range: Systolic (24hrs), Av , Min:93 , Max:165 ; Diastolic (24hrs), Av, Min:30, Max:94 Review of Systems: Constitutional Negative for fever and chills HEENT Negative for ear discharge, ear pain, nosebleed Eyes Negative for photophobia, pain and discharge Respiratory Negative for hemoptysis and sputum Cardiovascular Negative for orthopnea, claudication and PND Gastrointestinal Negative for abdominal pain, diarrhea, blood in stool Musculoskeletal Negative for joint pain, negative for myalgia Skin Negative for rash or itching Endo/heme/allergies Negative for polydipsia, environmental allergy Psychiatric/behavioral Negative for suicidal ideation. Patient is not anxious NEUROLOGIC EXAMINATION GENERAL Appears comfortable and in no distress HEENT NC/ AT NECK Supple MENTAL STATUS: Awake and alert, oriented to self, knew he was in the hospital, knew the year but not the month, normal speech, normal language, no hallucination or delusion. Intact naming. Follows simple commands. CRANIAL NERVES: II - Visual alvarez intact to confrontation III,IV, - EOMs full, no afferent defect, no HARLEY, no ptosis V - Normal facial sensation VII - Normal facial symmetry VIII - Hard of hearing IX,X - Symmetrical palate XI - Symmetrical shoulder shrug XII - Midline tongue, no atrophy MOTOR FUNCTION: Lifts all limbs with normal bulk, normal tone and no involuntary movements, no tremor SENSORY FUNCTION: Normal touch, normal pin CEREBELLAR FUNCTION: Intact fine motor control over upper limbs REFLEX FUNCTION: Symmetric, no perverted reflex, no Babinski sign STATION and GAIT Not tested Data: Lab Results: CBC: Recent Labs 06/02/25 1308 06/03/25 0618 WBC 7.8 7.2 HGB 12.3* 12.3* PLT 147 See Reflexed IPF Result BMP: Recent Labs 06/04/25 0703 06/04/25 1009 06/04/25 1423 06/04/25 2157 06/04/25 2229 06/05/25 0449 NA 119* 118* < > 122* 121* 126* K 4.6 4.8 < > 4.3 4.3 4.5 CL 88* 87* < > 90* 91* 95* CO2 19* 21 < > 20 21 19* BUN 11 11 -- -- -- 13 CREATININE 0.6* 0.7 -- -- -- 0.8 GLUCOSE 86 107* -- -- -- 112* < > = values in this interval not displayed. Lab Results Component Value Date TSH 2.95 06/04/2025 INR 1.9 06/05/2025 Diagnostic data reviewed: CT HEAD (06/04/25) - 1. No acute intracranial abnormality. 2. Acute right maxillary sinusitis. Impression: -Acute toxic metabolic encephalopathy in the setting of epistaxis, hyponatremia, and possible medication effects post Ativan -A fib on Coumadin Plan: -Patient level of alertness continues to improve; he has no neurologic complaints and exam is non focal -Nephrology is following and managing hyponatremia -Avoid sedating medications -He continues on antibiotics -Therapies -No further inpatient neurologic testing at this time. We will sign off. Please call with any questions. Please note that this note was generated using a voice recognition dictation software. Although every effort was made to ensure the accuracy of this automated tie mill operator, some errors in tie mill operator may have occurred. Cosigned by Mihir Lopez DO at 06/05/2025 9:39 PM EDT Associated attestation - Mihir Lopez DO - 06/05/2025 9:39 PM EDT Attending Physician Statement: I have discussed the care of Dariel Aguilera, including pertinent history and exam findings with the EDWARD. I have seen and examined the patient and the rubin elements of the encounter have been performed byme. I have reviewed medications, clinical laboratory, imaging and other diagnostic tests with the EDWARD. I agree with the assessment, plan and orders as documented by the EDWRAD with changes made to the no te as needed. In addition: Continues to have some waxing and waning of mentation. Suspect superimposed hospital induced delirium. Exam nonfocal. Discussed with . Appears he has had previous mental status changes in settingof hyponatremia. Recommended further monitoring but family adamant on DC home today as they believethat his mentation will improve at home. Recommend follow-up with neurology outpatient in 2 to 3 weeks. Mihir Lopez DO 06/05/2025 9:37 PM * Flaco Ren MD - 06/05/2025 7:23 AM EDT INTENSIVE CARE UNIT Resident Physician Progress Note Patient - Dariel Aguilera Date of Admission - 06/02/2025 10:01 AM Date of Evaluation - 06/05/2025 Room and Bed Number - [id number] Hospital Day - 3 SUBJECTIVE: HISTORY OF PRESENT ILLNESS: Dariel Aguilera is a 85 y.o. with past medical history of A-fib on Coumadin, hypertension, type 2 diabetes, BPH, SIADH, hyponatremia, hypothyroidism who initially presented as a transfer from [facility] facility for recurrent epistaxis after a fall which resulted in nasal bone fracture. Patient initially presented to [facility] yesterday and was treated with Afrin and nasal pressure, patient was discharged home with ENT follow-up. When patient returned home he blew his nose and resulted in brisk bleeding from the left nare prompting him to return to the ER yesterday evening. He had bilateral nasal packing with Rhino Rocket's placed and was transferred to [facility] evaluation. Patient was seen by ENT upon arrival and had bilateral nasal packing and Rhino Rocket's deflated, recommended keeping nasal passages moist with saline sprays. No epistaxis observed after deflation. 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 On arrival patient was found to have a sodium of 129 which has steadily dropped. Nephrology was consulted for acute hyponatremia. Patient does take salt tabs 1 g3 times daily at home, this was increased to 2 g today by nephrology with fluid restriction of 1.2 L. Repeat sodium today was 117, nephrology started patient on 3% saline infusion and recommended transfer to medical ICU for further management. OVERNIGHT EVENTS: NO overnight acute events TODAY: Patient is alert, awake, oriented, AO x 3, hemodynamically stable, saturating appropriately on roomair, no concerns of bleeding UO: 3.7 lit I/O -3.28 lit over 24 hrs Labs this a.m. reviewed: Sodium 126> 121, INR 1.9, glucose 108 Plan for today: Follow-up on nephrology recommendations Discharge home OBJECTIVE: VITAL SIGNS: Patient Vitals for the past 8 hrs: BP Temp Temp src Pulse Resp SpO2 Weight 06/05/25 0630 -- -- -- 67 15 100 % -- 06/05/25 0600 (!) 130/56 -- -- 64 12 97 % -- 06/05/25 0530 -- -- -- 62 14 98 % -- 06/05/25 0500 (!) 123/30 -- -- 66 20 100 % -- 06/05/25 0430 -- -- -- 66 13 100 % -- 06/05/25 0400 (!) 114/47 98.1 ??F (36.7 ??C) Axillary 66 12 98 % 83.7 kg (184 lb 8.4 oz) 06/05/25 0300 (!) 97/38 -- -- 59 14 97 % -- 06/05/25 0200 (!) 123/53 -- -- 56 15 99 % -- 06/05/25 0100 (!) 117/42 -- -- 55 13 96 % -- 06/05/25 0004 122/66 -- -- 70 17 -- -- 06/05/25 0002 (!) 93/49 -- -- 67 13 -- -- 06/05/25 0000 -- 97.5 ??F (36.4 ??C) Axillary 57 12 95 % -- 06/04/25 2330 -- -- -- 52 13 95 % -- Last Body weight: Wt Readings from Last 3 Encounters: 06/05/25 83.7 kg (184 lb 8.4 oz) Body Mass Index : Body mass index is 26.48 kg/m??. Tmax over 24 hours: Temp (24hrs), Av.8 ??F (36.6 ??C), Min:97.5 ??F (36.4 ??C), Max:98.1 ??F (36.7 ??C) Ins/Outs: In: 480 [P.O.:480] Out: 3760 [Urine:3760] PHYSICAL EXAM: Physical Exam Cardiovascular: Rate and Rhythm: Normal rate. Pulmonary: Effort: Pulmonary effort is normal. Abdominal: Palpations: Abdomen is soft. Neurological: General: No focal deficit present. Mental Status: He is alert. Psychiatric: Mood and Affect: Mood normal. MEDICATIONS: Scheduled Meds: sodium chloride 2 g Oral TID lisinopril 10 mg Oral Daily sodium chloride flush 5-40 mL IntraVENous 2 times per day insulin lispro 0-4 Units SubCUTAneous 4x Daily AC & HS finasteride 5 mg Oral Daily gabapentin 300 mg Oral Daily levothyroxine 25 mcg Oral Daily pantoprazole 40 mg Oral QAM AC pravastatin 40 mg Oral Daily tamsulosin 0.4 mg Oral Daily cephALEXin 500 mg Oral 3 times per day sodium chloride 2 spray Each Nostril Q4H warfarin placeholder: dosing by pharmacy Oral RX Placeholder glipiZIDE 5 mg Oral QAM AC atenolol 25 mg Oral BID Continuous Infusions: sodium chloride dextrose PRN Meds: sodium chloride flush, 10 mL, PRN sodium chloride, , PRN potassium chloride, 40 mEq, PRN Or potassium alternative oral replacement, 40 mEq, PRN Or potassium chloride, 10 mEq, PRN magnesium sulfate, 1,000 mg, PRN ondansetron, 4 mg, Q8H PRN Or ondansetron, 4 mg, Q6H PRN polyethylene glycol, 17 g, Daily PRN acetaminophen, 650 mg, Q6H PRN Or acetaminophen, 650 mg, Q6H PRN glucose, 4 tablet, PRN dextrose bolus, 125 mL, PRN Or dextrose bolus, 250 mL, PRN glucagon (rDNA), 1 mg, PRN dextrose, , Continuous PRN Additional Respiratory Assessments Pulse: 67 Respirations: 15 SpO2: 100 % No results found for: IFIO2 , MODE , SETTIDVOL , SETPEEP DATA: Complete Blood Count: Recent Labs 06/02/25 1308 06/03/25 0618 WBC 7.8 7.2 RBC 4.01* 3.98* HGB 12.3* 12.3* HCT 36.5* 35.2* MCV 91.0 88.4 MCH 30.7 30.9 MCHC 33.7 34.9* RDW 13.2 13.0 PLT 147 See Reflexed IPF Result MPV 11.3 -- Last 3 Blood Glucose: Recent Labs 06/03/25 0618 06/04/25 0024 06/04/25 0208 06/04/25 0339 06/04/25 0539 06/04/25 0703 06/04/25 1009 06/05/25 0449 GLUCOSE 107* 90 76 75 81 86 107* 112* PT/INR: Lab Results Component Value Date/Time PROTIME 22.4 06/05/2025 04:49 AM INR 1.9 06/05/2025 04:49 AM PTT: No results found for: APTT Basic Metabolic Profile: Recent Labs 06/04/25 0703 06/04/25 1009 06/04/25 1423 06/04/25 2157 06/04/25 2229 06/05/25 0449 NA 119* 118* < > 122* 121* 126* K 4.6 4.8 < > 4.3 4.3 4.5 CL 88* 87* < > 90* 91* 95* CO2 19* 21 < > 20 21 19* BUN 11 11 -- -- -- 13 CREATININE 0.6* 0.7 -- -- -- 0.8 GLUCOSE 86 107* -- -- -- 112* < > = values in this interval not displayed. Liver Function: No results for input(s): LABALBU , ALT , AST , GGT , ALKPHOS , BILITOT in the last 72 hours. Invalid input(s): PROT Magnesium: No results found for: MG Phosphorus: No results found for: PHOS Ionized Calcium: No results found for: CAION Urinalysis: No results found for: NITRU , COLORU , PHUR , LABCAST , WBCUA , RBCUA , MUCUS , TRICHOMONAS , YEAST , BACTERIA , CLARITYU , SPECGRAV , LEUKOCYTESUR , UROBILINOGEN , BILIRUBINUR , BLOODU , GLUCOSEU , KETUA , AMORPHOUS HgBA1c: No results found for: LABA1C TSH: Lab Results Component Value Date/Time TSH 2.95 06/04/2025 03:39 AM Lactic Acid: No results found for: LACTA Troponin: No results for input(s): TROPONINI in the last 72 hours. Other Labs: Results for orders placed or performed during the hospital encounter of 06/02/25 Protime-INR Result Value Ref Range Protime 22.2 (H) 11.7 - 14.9 sec INR 1.9 Basic Metabolic Panel w/ Reflex to MG Result Value Ref Range Sodium 129 (L) 136 - 145 mmol/L Potassium 4.7 3.7 - 5.3 mmol/L Chloride 96 (L) 98 - 107 mmol/L CO2 20 20 - 31 mmol/L Anion Gap 13 9 - 16 mmol/L Glucose 117 (H) 74 - 99 mg/dL BUN 16 8 - 23 mg/dL Creatinine 0.8 0.7 - 1.2 mg/dL Est, Glom Filt Rate 88 >60 mL/min/1.73m2 Calcium 9.1 8.6 - 10.4 mg/dL CBC with Auto Differential Result Value Ref Range WBC 7.8 3.5 - 11.3 k/uL RBC 4.01 (L) 4.21 - 5.77 m/uL Hemoglobin 12.3 (L) 13.0 - 17.0 g/dL Hematocrit 36.5 (L) 40.7 - 50.3 % MCV 91.0 82.6 - 102.9 fL MCH 30.7 25.2 - 33.5 pg MCHC 33.7 28.4 - 34.8 g/dL RDW 13.2 11.8 - 14.4 % Platelets 147 138 - 453 k/uL MPV 11.3 8.1 - 13.5 fL NRBC Automated 0.0 0.0 per 100 WBC Neutrophils % 62 36 - 65 % Lymphocytes % 25 24 - 43 % Monocytes % 11 3 - 12 % Eosinophils % 1 1 - 4 % Basophils % 1 0 - 2 % Immature Granulocytes % 0 0 % Neutrophils Absolute 4.88 1.50 - 8.10 k/uL Lymphocytes Absolute 1.93 1.10 - 3.70 k/uL Monocytes Absolute 0.84 0.10 - 1.20 k/uL Eosinophils Absolute 0.08 0.00 - 0.44 k/uL Basophils Absolute 0.06 0.00 - 0.20 k/uL Immature Granulocytes Absolute <0.03 0.00 - 0.30 k/uL Basic Metabolic Panel w/ Reflex to MG Result Value Ref Range Sodium 121 (L) 136 - 145 mmol/L Potassium 4.8 3.7 - 5.3 mmol/L Chloride 90 (L) 98 - 107 mmol/L CO2 20 20 - 31 mmol/L Anion Gap 11 9 - 16 mmol/L Glucose 107 (H) 74 - 99 mg/dL BUN 13 8 - 23 mg/dL Creatinine 0.7 0.7 - 1.2 mg/dL Est, Glom Filt Rate >90 >60 mL/min/1.73m2 Calcium 9.0 8.6 - 10.4 mg/dL CBC with Auto Differential Result Value Ref Range WBC 7.2 3.5 - 11.3 k/uL RBC 3.98 (L) 4.21 - 5.77 m/uL Hemoglobin 12.3 (L) 13.0 - 17.0 g/dL Hematocrit 35.2 (L) 40.7 - 50.3 % MCV 88.4 82.6 - 102.9 fL MCH 30.9 25.2 - 33.5 pg MCHC 34.9 (H) 28.4 - 34.8 g/dL RDW 13.0 11.8 - 14.4 % Platelets See Reflexed IPF Result 138 - 453 k/uL Platelet, Fluorescence 132 (L) 138 - 453 k/uL Platelet, Immature Fraction 5.3 1.1 - 10.3 % NRBC Automated 0.0 0.0 per 100 WBC Neutrophils % 64 36 - 65 % Lymphocytes % 23 (L) 24 - 43 % Monocytes % 11 3 - 12 % Eosinophils % 1 1 - 4 % Basophils % 1 0 - 2 % Immature Granulocytes % 0 0 % Neutrophils Absolute 4.63 1.50 - 8.10 k/uL Lymphocytes Absolute 1.68 1.10 - 3.70 k/uL Monocytes Absolute 0.80 0.10 - 1.20 k/uL Eosinophils Absolute 0.08 0.00 - 0.44 k/uL Basophils Absolute 0.04 0.00 - 0.20 k/uL Immature Granulocytes Absolute <0.03 0.00 - 0.30 k/uL Protime-INR Result Value Ref Range Protime 20.3 (H) 11.7 - 14.9 sec INR 1.7 Electrolyte Panel Result Value Ref Range Sodium 120 (L) 136 - 145 mmol/L Potassium 4.5 3.7 - 5.3 mmol/L Chloride 89 (L) 98 - 107 mmol/L CO2 19 (L) 20 - 31 mmol/L Anion Gap 12 9 - 16 mmol/L Electrolyte Panel Result Value Ref Range Sodium 117 (LL) 136 - 145 mmol/L Potassium 4.4 3.7 - 5.3 mmol/L Chloride 86 (L) 98 - 107 mmol/L CO2 17 (L) 20 - 31 mmol/L Anion Gap 14 9 - 16 mmol/L Osmolality Result Value Ref Range Serum Osmolality 251 (L) 275 - 295 mOsm/kg Basic Metabolic Panel w/ Reflex to MG Result Value Ref Range Sodium 117 (LL) 136 - 145 mmol/L Potassium 4.1 3.7 - 5.3 mmol/L Chloride 86 (L) 98 - 107 mmol/L CO2 16 (L) 20 - 31 mmol/L Anion Gap 15 9 - 16 mmol/L Glucose 90 74 - 99 mg/dL BUN 12 8 - 23 mg/dL Creatinine 0.7 0.7 - 1.2 mg/dL Est, Glom Filt Rate >90 >60 mL/min/1.73m2 Calcium 8.6 8.6 - 10.4 mg/dL Basic Metabolic Panel w/ Reflex to MG Result Value Ref Range Sodium 120 (L) 136 - 145 mmol/L Potassium 4.4 3.7 - 5.3 mmol/L Chloride 89 (L) 98 - 107 mmol/L CO2 17 (L) 20 - 31 mmol/L Anion Gap 14 9 - 16 mmol/L Glucose 76 74 - 99 mg/dL BUN 11 8 - 23 mg/dL Creatinine 0.6 (L) 0.7 - 1.2 mg/dL Est, Glom Filt Rate >90 >60 mL/min/1.73m2 Calcium 8.5 (L) 8.6 - 10.4 mg/dL Basic Metabolic Panel w/ Reflex to MG Result Value Ref Range Sodium 119 (LL) 136 - 145 mmol/L Potassium 4.1 3.7 - 5.3 mmol/L Chloride 88 (L) 98 - 107 mmol/L CO2 19 (L) 20 - 31 mmol/L Anion Gap 12 9 - 16 mmol/L Glucose 81 74 - 99 mg/dL BUN 11 8 - 23 mg/dL Creatinine 0.6 (L) 0.7 - 1.2 mg/dL Est, Glom Filt Rate >90 >60 mL/min/1.73m2 Calcium 8.7 8.6 - 10.4 mg/dL Basic Metabolic Panel w/ Reflex to MG Result Value Ref Range Sodium 119 (LL) 136 - 145 mmol/L Potassium 4.6 3.7 - 5.3 mmol/L Chloride 88 (L) 98 - 107 mmol/L CO2 19 (L) 20 - 31 mmol/L Anion Gap 12 9 - 16 mmol/L Glucose 86 74 - 99 mg/dL BUN 11 8 - 23 mg/dL Creatinine 0.6 (L) 0.7 - 1.2 mg/dL Est, Glom Filt Rate >90 >60 mL/min/1.73m2 Calcium 8.8 8.6 - 10.4 mg/dL Basic Metabolic Panel w/ Reflex to MG Result Value Ref Range Sodium 118 (LL) 136 - 145 mmol/L Potassium 4.8 3.7 - 5.3 mmol/L Chloride 87 (L) 98 - 107 mmol/L CO2 21 20 - 31 mmol/L Anion Gap 10 9 - 16 mmol/L Glucose 107 (H) 74 - 99 mg/dL BUN 11 8 - 23 mg/dL Creatinine 0.7 0.7 - 1.2 mg/dL Est, Glom Filt Rate >90 >60 mL/min/1.73m2 Calcium 8.6 8.6 - 10.4 mg/dL Osmolality, Urine Result Value Ref Range Osmolality, Ur 590 80 - 1300 mOsm/kg Sodium, urine, random Result Value Ref Range Sodium, Ur 159 mmol/L ELECTROLYTES PLUS Result Value Ref Range POC Sodium 123 (L) 138 - 146 mmol/L POC Potassium 3.9 3.5 - 4.5 mmol/L POC Chloride 89 (L) 98 - 107 mmol/L POC TCO2 23 22 - 30 mmol/L POC Anion Gap 12 7 - 16 mmol/L Hemoglobin and hematocrit, blood Result Value Ref Range POC Hemoglobin (calc) 12.3 (L) 13.5 - 17.5 g/dL POC Hematocrit 36 (L) 41 - 53 % CALCIUM, IONIC (POC) Result Value Ref Range POC Ionized Calcium 1.18 1.15 - 1.33 mmol/L Electrolyte Panel Result Value Ref Range Sodium 118 (LL) 136 - 145 mmol/L Potassium 4.5 3.7 - 5.3 mmol/L Chloride 88 (L) 98 - 107 mmol/L CO2 19 (L) 20 - 31 mmol/L Anion Gap 11 9 - 16 mmol/L Cortisol Total Result Value Ref Range Cortisol 11.7 2.5 - 19.5 ug/dL T4, Free Result Value Ref Range T4 Free 1.5 0.92 - 1.68 ng/dL TSH Result Value Ref Range TSH 2.95 0.27 - 4.20 uIU/mL Basic Metabolic Panel w/ Reflex to MG Result Value Ref Range Sodium 120 (L) 136 - 145 mmol/L Potassium 4.3 3.7 - 5.3 mmol/L Chloride 88 (L) 98 - 107 mmol/L CO2 21 20 - 31 mmol/L Anion Gap 11 9 - 16 mmol/L Glucose 75 74 - 99 mg/dL BUN 11 8 - 23 mg/dL Creatinine 0.6 (L) 0.7 - 1.2 mg/dL Est, Glom Filt Rate >90 >60 mL/min/1.73m2 Calcium 9.0 8.6 - 10.4 mg/dL Electrolyte Panel Result Value Ref Range Sodium 122 (L) 136 - 145 mmol/L Potassium 4.3 3.7 - 5.3 mmol/L Chloride 90 (L) 98 - 107 mmol/L CO2 20 20 - 31 mmol/L Anion Gap 12 9 - 16 mmol/L Protime-INR Result Value Ref Range Protime 21.4 (H) 11.7 - 14.9 sec INR 1.8 Electrolyte Panel Result Value Ref Range Sodium 121 (L) 136 - 145 mmol/L Potassium 4.3 3.7 - 5.3 mmol/L Chloride 91 (L) 98 - 107 mmol/L CO2 21 20 - 31 mmol/L Anion Gap 9 9 - 16 mmol/L Basic Metabolic Panel Result Value Ref Range Sodium 126 (L) 136 - 145 mmol/L Potassium 4.5 3.7 - 5.3 mmol/L Chloride 95 (L) 98 - 107 mmol/L CO2 19 (L) 20 - 31 mmol/L Anion Gap 12 9 - 16 mmol/L Glucose 112 (H) 74 - 99 mg/dL BUN 13 8 - 23 mg/dL Creatinine 0.8 0.7 - 1.2 mg/dL Est, Glom Filt Rate 88 >60 mL/min/1.73m2 Calcium 9.2 8.6 - 10.4 mg/dL Protime-INR Result Value Ref Range Protime 22.4 (H) 11.7 - 14.9 sec INR 1.9 POC Glucose Fingerstick Result Value Ref Range POC Glucose 110 75 - 110 mg/dL POC Glucose Fingerstick Result Value Ref Range POC Glucose 109 75 - 110 mg/dL POC Glucose Fingerstick Result Value Ref Range POC Glucose 127 (H) 75 - 110 mg/dL POC Glucose Fingerstick Result Value Ref Range POC Glucose 117 (H) 75 - 110 mg/dL POC Glucose Fingerstick Result Value Ref Range POC Glucose 124 (H) 75 - 110 mg/dL POC Glucose Fingerstick Result Value Ref Range POC Glucose 98 75 - 110 mg/dL POC Glucose Fingerstick Result Value Ref Range POC Glucose 92 75 - 110 mg/dL Arterial Blood Gas, POC Result Value Ref Range POC pH 7.412 7.350 - 7.450 POC pCO2 38.6 35.0 - 48.0 mm Hg POC PO2 91.7 83.0 - 108.0 mm Hg POC HCO3 24.6 21.0 - 28.0 mmol/L Positive Base Excess, Art 0.1 0.0 - 3.0 mmol/L POC O2 SAT 97.2 94.0 - 98.0 % O2 Delivery Device Room Air Sample Site Right Radial Artery Creatinine W/GFR Point of Care Result Value Ref Range POC Creatinine 0.7 0.51 - 1.19 mg/dL eGFR, POC >90 >60 mL/min/1.73m2 POCT urea (BUN) Result Value Ref Range POC BUN 11 8 - 26 mg/dL Lactic Acid, POC Result Value Ref Range POC Lactic Acid 0.8 0.56 - 1.39 mmol/L POCT Glucose Result Value Ref Range POC Glucose 81 74 - 100 mg/dL POC Glucose Fingerstick Result Value Ref Range POC Glucose 76 75 - 110 mg/dL POC Glucose Fingerstick Result Value Ref Range POC Glucose 93 75 - 110 mg/dL POC Glucose Fingerstick Result Value Ref Range POC Glucose 117 (H) 75 - 110 mg/dL POC Glucose Fingerstick Result Value Ref Range POC Glucose 96 75 - 110 mg/dL POC Glucose Fingerstick Result Value Ref Range POC Glucose 119 (H) 75 - 110 mg/dL Radiology/Imaging: CT HEAD WO CONTRAST Final Result 1. No acute intracranial abnormality. 2. Acute right maxillary sinusitis. ASSESSMENT: Patient Active Problem List Diagnosis Date Noted Toxic metabolic encephalopathy 06/04/2025 Fracture of nasal bones, initial encounter for closed fracture 06/02/2025 Epistaxis 06/02/2025 Benign hypertension 06/02/2025 Benign prostatic hyperplasia 06/02/2025 Carotid artery occlusion 06/02/2025 Diabetes mellitus (HCC) 06/02/2025 Hypothyroidism (acquired) 06/02/2025 Secondary hypercoagulable state 06/02/2025 Anticoagulated on Coumadin 06/02/2025 Hyponatremia 06/02/2025 Atrial fibrillation (HCC) 08/22/2014 Generalized osteoarthritis 09/12/2012 Cervical disc disease with myelopathy 2011 PLAN: Neuro: Somnolent, opens eyes to sternal rubs Neuro checks per protocol Sedation: None Pain control PRN CT head ordered, pending results Resp: Nasal bone fracture Recurrent epistaxis Maintain oxygen sats >92% Pulmonary toilet Nasal bone fracture with recurrent epistaxis S/p bilateral nasal packing with Rhino Rocket ENT evaluated patient, deflated Rhino Rocket's Notify if rebleeding occurs cont on Keflex Sinus precautions Saline nasal drops bilaterally every 4 hours RR Resp Av.7 Min: 12 Max: 20 Sat O2% SpO2 Av.3 % Min: 86 % Max: 100 % CV: Hx of Afib Hx of HTN, HLD Hemodynamically stable MAP goal > 65 Currently rate controlled, continue with home medication of atenolol Continue home medications : Pravastatin, Coumadin GI/Nutrition: Ulcer Prophylaxis: Protonix Diet:ADULT DIET; Regular; 5 carb choices (75 gm/meal); Low Fat/Low Chol/High Fiber/JEREL; 1200 ml /Fluids/Electrolytes: Hyponatremia-resolved 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, replace PRN Nephrology following Salt tabs increased to 2 g 3 times daily Fluid restriction 1.2 L Started on 3% saline BPH, resume Flomax Heme: Hb 12.3 , Plt 147 PT/INR: 1.7/20.3 Continue warfarin Okay to resume anticoagulation per ENT Monitor for rebleeding ID: WBC WNL Afebrile Antimicrobials: Keflex Endo: Type 2 diabetes Hypothyroidism Low-dose sliding scale Resume home medications: Glipizide, Synthroid Continue to monitor blood sugars MSK: Mechanical fall resulting in nasal bone fracture with recurrent epistaxis PT/OT Prophylaxis: DVT: Warfarin GI: Protonix CODE STATUS: Full Code DISPOSITION: [] To remain ICU: [x] OK for out of ICU from Critical Care standpoint Attending Physician Statement I have discussed the care of Dariel Aguilera, including pertinent history and exam findings, with the resident. I have seen and examined the patient and the rubin elements of all parts of the encounter have been performed by me. I agree with the assessment, plan and orders as documented by the resident with additions . Dw nephrology Ok to dc Please note that this chart was generated using voice recognition [employer] dictation software. Although every effort was made to ensure the accuracy of this automated tie mill operator, some errors in tie mill operator may have occurred. * Geo Rehman, [facility] - 06/04/2025 3:32 PM EDT Pharmacy Note Warfarin Consult follow-up Recent Labs 06/04/25 1423 INR 1.8 Recent Labs 06/02/25 1308 06/03/25 0618 HGB 12.3* 12.3* HCT 36.5* 35.2* PLT 147 See Reflexed IPF Result Warfarin dose ORACLE MANAGER: 5 mg MWF and 2.5 mg all other days Indication: Afib Goal INR: 2-3 Current warfarin drug-drug interactions: Keflex, Pravachol, Synthroid Date INR Dose 06/02 1.9 2.5 mg 06/03 1.7 Per MAR, 5 mg dose was ordered but not administered d/t pt status 06/04 1.8 5 mg Notes: -Subtherapeutic INR -Coumadin 5 mg boost this evening (home dose = 2.5 mg) Daily PT/INR while inpatient. Thank you for the consult. Will continue to follow. Geo Rehman, PharmD * Blossom Mireles MD - 06/04/2025 1:19 PM EDT ENT/OTOLARYNGOLOGY SUBSEQUENT CARE PROGRESS NOTE REASON FOR CARE: epistaxis HISTORY OF PRESENT ILLNESS: Dariel Aguilera is a 85 y.o. who is being seen for follow-up of epistaxis, nasal fracture Inflatable packs removed yesterday, no bleeding or drainage since removal Pertinent Examination: GENERAL: well developed and well nourished and in no acute distress HEAD: normocephalic and atraumatic EYES: no eyelid swelling, no conjunctival injection or exudate, pupils equal round and reactive to light EXTERNAL EARS: normal EAR EXAM: hard of hearing and deferred NOSE: mucosa with slight crusting. No active bleeding or clot Nasal dorsum has superficial abrasion, no asymmetry, no palpable stepoff MOUTH/THROAT: mucous membranes moist, no focal lesions, no tonsillar enlargement or exudate; no pharyngeal staining NECK: non-tender, full range of motion, no mass, no focal lymphadenopathy RESPIRATORY: Normal expansion. Clear to auscultation. No rales, rhonchi, or wheezing. RELEVANT LABS/STUDIES: Additional data reviewed: None Procedures: None Surgical risk factors: None IMPRESSION AND RECOMMENDATIONS: Dariel Aguilera is a 85 y.o. male with epistaxis and nasal trauma. Plan: Nasal fracture complicated by epistaxis and aggravated by Coumadin use. No bony stepoff, nasal reduction unlikely to be needed. Nasal packs removed yesterday with no further bleeding. Continue nasal moisturization with saline. ENT will sign off. Please call with questions or concerns. No ENT follow up required. BLOSSOM MIRELES MD Pediatric Otolaryngology-Head and Neck Surgery [facility] Otolaryngology group Office ph# [phone] Also available in Q-go * Rowena Duong RP - 06/03/2025 11:31 AM EDT Pharmacy Note Warfarin Consult follow-up Recent Labs 06/03/25 0618 INR 1.7 Recent Labs 06/02/25 1308 06/03/25 0618 HGB 12.3* 12.3* HCT 36.5* 35.2* PLT 147 See Reflexed IPF Result Target INR range: 2-3 Current warfarin drug-drug interactions: n/a Date INR Dose 06/02 1.9 2.5mg 06/03 1.7 Notes: No current bleeding. Will give home dose of 5mg today. Daily PT/INR while inpatient. Rowena Duong, Love 06/03/2025 11:30 AM * Beto Hedrick DO - 06/03/2025 8:19 AM EDT Images from the original note were not included. [facility] Office: [phone] Viktor Monet DO, Jermaine Gustafson DO, Jermaine Pina DO, Jonah Cornelius DO, Layne Jiménez MD, Ashley Miller MD, Pierre Murillo MD, Gabbi Corado MD, Panfilo Borges MD, Sandy Gavin MD, Michael Moy MD, Aleksandra Rhoades DO, Lizbet Bryson MD, Pardeep Marroquin MD, Jack Monet DO, Hallie Dotson MD, Flip Cifuentes DO, Kristy Ren MD, Florence Iyer MD, Gianna Garber MD, MD Beth, Francy oJhnson MD, Eunice Pedroza MD, Mary Garcia MD, Pollo Rodríguez MD, Radha Becerra MD, Beto Hedrick DO, Marisela Kirkpatrick MD, Paulo Mattson DO, Binh Bernstein MD, Aleksandra Duckworth MD, Dang Duckworth MD, Tiffany Francis MD, Valerie Trivedi, DIRECTOR OF FOOD AND BEVERAGE SERVICES, Keren Gutierrez, DIRECTOR OF FOOD AND BEVERAGE SERVICES, Beto Guzman, DIRECTOR OF FOOD AND BEVERAGE SERVICES, Kemi Hdz, [facility], Janelle Luna, DIRECTOR OF FOOD AND BEVERAGE SERVICES, Celena Johnson, DIRECTOR OF FOOD AND BEVERAGE SERVICES, Annia Rogers, DIRECTOR OF FOOD AND BEVERAGE SERVICES, Christina Cuevas, DIRECTOR OF FOOD AND BEVERAGE SERVICES, Marline Vila, PA-C, Adore Cueto, DIRECTOR OF FOOD AND BEVERAGE SERVICES, Emily Chiang, DIRECTOR OF FOOD AND BEVERAGE SERVICES, Maria Elena De La Torre, DIRECTOR OF FOOD AND BEVERAGE SERVICES, Venessa Mitchell, DIRECTOR OF FOOD AND BEVERAGE SERVICES, Rush Peters, PA-C, Rachel Nascimento, PA-C, Itzel Salazar, DIRECTOR OF FOOD AND BEVERAGE SERVICES, Edwina Cole, DATA SECURITY ADMINISTRATOR, Alex Castillo, DIRECTOR OF FOOD AND BEVERAGE SERVICES, Leelee Easley, DIRECTOR OF FOOD AND BEVERAGE SERVICES [facility] IN-PATIENT SERVICE [facility] Progress Note 06/03/2025 8:19 AM Name: Dariel Aguilera Acct: [id number] Room: [address] [place] [address] Day: 1 Admit Date: 06/02/2025 10:01 AM PCP: No primary care provider on file. Code Status: Full Code Subjective: C/C: No chief complaint on file. Patient was late bleeding from his nose this morning. He denies any pain. States he is eating and drinking well. Denies any other issues today. Brief History: 85-year-old male with a past medical history of atrial fibrillation on warfarin, hypertension, type2 diabetes, SIADH initially presented to [place] emergency department for nosebleeding after mechanical fall out of a chair. CT scan reportedly showed nasal bone fracture. He was transferred to [place] for ENT evaluation. ENT deflated nasal packings and ultimately removed the packing says there was no bleeding. Medications: Allergies: No Known Allergies Current Meds: Scheduled Meds: sodium chloride flush 5-40 mL IntraVENous 2 times per day insulin lispro 0-4 Units SubCUTAneous 4x Daily AC & HS finasteride 5 mg Oral Daily gabapentin 300 mg Oral Daily levothyroxine 25 mcg Oral Daily pantoprazole 40 mg Oral QAM AC pravastatin 40 mg Oral Daily tamsulosin 0.4 mg Oral Daily cephALEXin 500 mg Oral 3 times per day sodium chloride 2 spray Each Nostril Q4H warfarin placeholder: dosing by pharmacy Oral RX Placeholder sodium chloride 1 g Oral TID glipiZIDE 5 mg Oral QAM AC atenolol 25 mg Oral BID Continuous Infusions: sodium chloride dextrose PRN Meds: sodium chloride flush, sodium chloride, potassium chloride OR potassium alternative oral replacement OR potassium chloride, magnesium sulfate, ondansetron OR ondansetron, polyethylene glycol, acetaminophen OR acetaminophen, glucose, dextrose bolus OR dextrose bolus, glucagon (rDNA), dextrose Data: Past Medical History: has a past medical history of Atrial fibrillation (HCC), Diabetes (HCC), Highcholesterol, Hyponatremia, Hypothyroidism, Lumbar spondylolysis, and Syncope. Social History: reports that he has never smoked. He has never used smokeless tobacco. He reports that he does not drink alcohol and does not use drugs. Family History: History reviewed. No pertinent family history. Vitals: BP (!) 145/69 Pulse 57 Temp 98 ??F (36.7 ??C) Resp 19 Ht 1.778 m (5' 10 ) Wt 79.3 kg (174 lb 13.2 oz) SpO2 100% BMI 25.08 kg/m?? Temp (24hrs), Av.8 ??F (36.6 ??C), Min:97.3 ??F (36.3 ??C), Max:98 ??F (36.7 ??C) Recent Labs 06/02/25 1348 06/02/25 1613 06/02/25 1956 06/03/25 0746 POCGLU 110 109 127* 117* I/O (24Hr): Intake/Output Summary (Last 24 hours) at 06/03/2025 0819 Last data filed at 06/02/2025 1800 Gross per 24 hour Intake 550 ml Output -- Net 550 ml Labs: Hematology: Recent Labs 06/02/25 1308 06/03/25 0618 WBC 7.8 7.2 RBC 4.01* 3.98* HGB 12.3* 12.3* HCT 36.5* 35.2* MCV 91.0 88.4 MCH 30.7 30.9 MCHC 33.7 34.9* RDW 13.2 13.0 PLT 147 See Reflexed IPF Result MPV 11.3 -- INR 1.9 1.7 Chemistry: Recent Labs 06/02/25 1308 06/03/25 0618 NA 129* 121* K 4.7 4.8 CL 96* 90* CO2 20 20 GLUCOSE 117* 107* BUN 16 13 CREATININE 0.8 0.7 ANIONGAP 13 11 LABGLOM 88 >90 CALCIUM 9.1 9.0 Recent Labs 06/02/25 1348 06/02/25 1613 06/02/25 1956 06/03/25 0746 POCGLU 110 109 127* 117* ABG:No results found for: POCPH , PHART , PH , POCPCO2 , BER7YAC , PCO2 , POCPO2 , PO2ART , PO2 , POCHCO3 , QJT1WZP , HCO3 , NBEA , PBEA , BEART , BE , THGBART , THB , UKD9TLW , UEXJ1YCP , O6HDASZQ , O2SAT , FIO2 No results found for: SPECIAL No results found for: CULTURE Radiology: No results found. Physical Examination: General: Alert and oriented, no acute distress, small amount of dried blood around nares Neurologic: Awake, alert, and oriented X3, no focal weakness Lungs: Clear to auscultation, no wheezing, non-labored respiration Heart: Normal rate, irregularly irregular rhythm, no murmur, gallop or edema Abdomen: Soft, non-tender, non-distended, normal bowel sounds Musculoskeletal: Normal strength, no tenderness or swelling Assessment: Hospital Problems Last Modified POA * (Principal) Fracture of nasal bones, initial encounter for closed fracture 06/02/2025 Yes Epistaxis 06/02/2025 Yes Atrial fibrillation (HCC) 06/02/2025 Yes Benign hypertension 06/02/2025 Yes Benign prostatic hyperplasia 06/02/2025 Yes Diabetes mellitus (HCC) 06/02/2025 Yes Hypothyroidism (acquired) 06/02/2025 Yes Secondary hypercoagulable state 06/02/2025 Yes Anticoagulated on Coumadin 06/02/2025 Yes Hyponatremia 06/02/2025 Yes Plan: Epistaxis and nasal bone fracture status post mechanical fall - ENT following, removed nasal packing, continue to monitor for bleeding, if rebleeding replace packing - Continue Keflex, can discontinue if no need for nasal packing - Ok to continue AC per ENT, hold if rebleeding Hyponatremia History of SIADH - Sodium dropped on AM labs - Electrolyte panel Q4 hours - Increased salt tabs - Fluid restriction - Urine studies pending - Nephrology consulted Atrial fibrillation - Continue atenolol - Continue warfarin with pharmacy to dose Hypertension - Continue atenolol - Added lisinopril for better BP control in setting of epistaxis Type 2 diabetes - Continue glipizide and low-dose sliding scale insulin Hypothyroidism - Continue levothyroxine Beto Hedrick DO 06/03/2025 8:19 AM * Morgan Daigle MD - 06/03/2025 7:48 AM EDT ENT/OTOLARYNGOLOGY SUBSEQUENT CARE PROGRESS NOTE REASON FOR CARE: epistaxis HISTORY OF PRESENT ILLNESS: Dariel Aguilera is a 85 y.o. who is being seen for follow-up of epistaxis, nasal fracture Inflatable packs deflated yesterday, no bright red blood- only serosanguinous drainage. Pertinent Examination: GENERAL: well developed and well nourished and in no acute distress HEAD: normocephalic and atraumatic EYES: no eyelid swelling, no conjunctival injection or exudate, pupils equal round and reactive to light EXTERNAL EARS: normal EAR EXAM: hard of hearing and deferred NOSE: Bilateral nasal packs removed during rounds. Right pack did not have any bloody staining. Left pack was stained. Right nasal mucosa is normal. Left nasal mucosa had small red spot on inferior turbinate Nasal dorsum has superficial abrasion, no asymmetry, no palpable stepoff MOUTH/THROAT: mucous membranes moist, no focal lesions, no tonsillar enlargement or exudate NECK: non-tender, full range of motion, no mass, no focal lymphadenopathy RESPIRATORY: Normal expansion. Clear to auscultation. No rales, rhonchi, or wheezing. NEUROLOGICAL: cranial nerves II-XII are grossly intact RELEVANT LABS/STUDIES: Additional data reviewed: None Procedures: None Surgical risk factors: None IMPRESSION AND RECOMMENDATIONS: Dariel Aguilera is a 85 y.o. male with epistaxis and nasal trauma. Plan: Nasal fracture complicated by epistaxis and aggravated by Coumadin use. No bony stepoff, nasal reduction unlikely to be needed. Nasal packs removed at morning rounds, monitor for recurrent bleeding. If none- ok for discharge home. MORGAN DAIGLE MD Pediatric Otolaryngology-Head and Neck Surgery [facility] Otolaryngology group Office ph# [phone] Also available in Q-go * IsaiasJuju king, [facility] - 06/02/2025 2:42 PM EDT Pharmacy Note Warfarin Consult Dariel Aguilera is a 85 y.o. male for whom pharmacy has been consulted to manage warfarin therapy. Consulting Physician: Adore Cueto, THOM[employer] - MOTORBOAT MECHANIC Reason for Admission: Mechanical fall resulting in nasal bone fracture and recurrent epistaxis Warfarin dose prior to admission: 2.5mg Tuesday, Tuesday, , Tuesday and 5 mg MW. Warfarin indication: afib Target INR range: 2-3 Past Medical History: Diagnosis Date Atrial fibrillation (HCC) Diabetes (HCC) High cholesterol Hyponatremia Hypothyroidism Lumbar spondylolysis Syncope Recent Labs 06/02/25 1308 INR 1.9 Recent Labs 06/02/25 1308 HGB 12.3* HCT 36.5* PLT 147 Current warfarin drug-drug interactions: cephalexin/acetaminophen/pravastatin Date INR Dose 06/02 1.9 2.5 mg Daily PT/INR while inpatient. Due to no current bleed, plan for warfarin 2.5 mg x 1 dose Thank you for the consult. Will continue to follow. Juju Garcia, PharmD 06/02/2025 2:31 PM * Leigha Avilez RN - 06/02/2025 12:40 PM EDT ENT at bedside, removed air from rhinorockets. Order received to inflate and page him if bleeding occurs. * Noemí Sotomayor RN - 06/02/2025 10:44 AM EDT Pt arrived [facility] via [facility]. Pt A&Ox4, admission database complete. Mediations reconciled. Pt put on telemetry and continuous pulse ox. Vitals stable. Bilat rhino rockets in place. No active epistaxis at this time. Primary team made aware of arrival. Side Piece Coverer called pt's to make her aware if the transfer, no answer left message. documented in this encounter Plan of Treatment Scheduled Orders Name Type Priority Associated Diagnoses Orde r Schedule Basic Metabolic Panel Lab Routine Hyponatremia Expected: 06/12/2025, Expires: 06/05/2026 documented as of this encounter Procedures Procedure Name Priority Date/Time Associated Diagnosis Comments POC GLUCOSE FINGERSTICK Routine 06/05/2025 11:48 AM EDT ELECTROLYTE PANEL Routine 06/05/2025 10: 43 AM EDT POC GLUCOSE FINGERSTICK Routine 06/05/2025 7:35 AM EDT PROTIME-INR Routine 06/05/2025 4:49 AM EDT BASIC METABOLIC PANEL Routine 06/05/2025 4:49 AM EDT ELECTROLYTE PANEL Routine 06/04/2025 10: 29 PM EDT ELECTROLYTE PANEL Routine 06/04/2025 9:5 7 PM EDT POC GLUCOSE FINGERSTICK Routine 06/04/2025 8:12 PM EDT PROTIME-INR Routine 06/04/2025 2:23 PM EDT ELECTROLYTE PANEL Routine 06/04/2025 2:2 3 PM EDT POC GLUCOSE FINGERSTICK Routine 06/04/2025 12:09 PM EDT BASIC METABOLIC PANEL W/ REFLEX TO MG FOR LOW K Timed 06/04/2025 10:09 AM EDT POC GLUCOSE FINGERSTICK Routine 06/04/2025 10:08 AM EDT POC GLUCOSE FINGERSTICK Routine 06/04/2025 7:22 AM EDT BASIC METABOLIC PANEL W/ REFLEX TO MG FOR LOW K Timed 06/04/2025 7:03 AM EDT POC GLUCOSE FINGERSTICK Routine 06/04/2025 6:19 AM EDT BASIC METABOLIC PANEL W/ REFLEX TO MG FOR LOW K Timed 06/04/2025 5:[address] HEAD WO CONTRAST STAT 06/04/2025 4 :13 AM EDT BASIC METABOLIC PANEL W/ REFLEX TO MG FOR LOW K Routine 06/04/2025 3:39 AM EDT TSH Add-On 06/04/2025 3:39 AM EDT T4, FREE Add-On 06/04/2025 3:39 AM EDT CORTISOL TOTAL Add-On 06/04/2025 3:39 AM EDT BASIC METABOLIC PANEL W/ REFLEX TO MG FOR LOW K Timed 06/04/2025 2:08 AM EDT LACTIC ACID,POINT OF CARE Routine 06/04/2025 2:02 AM EDT CREATININE W/GFR POINT OF CARE Routine 06/04/2025 2:02 AM EDT ARTERIAL BLOOD GAS, POC Routine 06/04/2025 2:02 AM EDT CALCIUM, IONIC (POC) Routine 06/04/2025 2:02 AM EDT ELECTROLYTES PLUS Routine 06/04/2025 2:0 2 AM EDT UREA N (POC) Routine 06/04/2025 2:02 AM EDT HGB/HCT Routine 06/04/2025 2:02 AM EDT POCT GLUCOSE Routine 06/04/2025 2:02 AM EDT SODIUM, URINE, RANDOM [employer] Label Print 06/04/2025 1:00 AM EDT OSMOLALITY, URINE [employer] Label Print 06/04/2025 1:00 AM EDT BASIC METABOLIC PANEL W/ REFLEX TO MG FOR LOW K Timed 06/04/2025 12:24 AM EDT POC GLUCOSE FINGERSTICK Routine 06/03/2025 8:06 PM EDT PREVIOUS SPECIMEN STAT 06/03/2025 6:4 3 PM EDT OSMOLALITY STAT 06/03/2025 6:43 PM EDT ELECTROLYTE PANEL STAT 06/03/2025 6:4 3 PM EDT POC GLUCOSE FINGERSTICK Routine 06/03/2025 4:51 PM EDT POC GLUCOSE FINGERSTICK Routine 06/03/2025 11:07 AM EDT ELECTROLYTE PANEL STAT 06/03/2025 8:2 9 AM EDT POC GLUCOSE FINGERSTICK Routine 06/03/2025 7:46 AM EDT BASIC METABOLIC PANEL W/ REFLEX TO MG FOR LOW K Routine 06/03/2025 6:18 AM EDT CBC WITH AUTO DIFFERENTIAL Routine 06/03/2025 6:18 AM EDT PROTIME-INR Routine 06/03/2025 6:18 AM EDT POC GLUCOSE FINGERSTICK Routine 06/02/2025 7:56 PM EDT POC GLUCOSE FINGERSTICK Routine 06/02/2025 4:13 PM EDT POC GLUCOSE FINGERSTICK Routine 06/02/2025 1:48 PM EDT BASIC METABOLIC PANEL W/ REFLEX TO MG FOR LOW K Routine 06/02/2025 1:08 PM EDT CBC WITH AUTO DIFFERENTIAL Routine 06/02/2025 1:08 PM EDT PROTIME-INR Routine 06/02/2025 1:08 PM EDT documented in this encounter Results * (ABNORMAL) POC Glucose Fingerstick (06/05/2025 11:48 AM EDT) [facility] POC Glucose 145(H) 75 - 110 mg/dL 06/05/2025 11:48 AM EDT [facility] 06/05/2025 11:4 8 AM EDT 06/05/2025 11:55 AM EDT Flaco Ren MD POINT OF CARE TEST ORDERABLES F inal Result Performing Organization Address [facility] Co de Phone Number [facility] [address] [place] [address], [facility] [phone] * (ABNORMAL) Electrolyte Panel (06/05/2025 10:43 AM EDT) Sodium 127(L) 136 - 145 mmol/L 06/05/2025 10:43 AM EDT [facility] Potassium 4.4 3.7 - 5.3 mmol/L 06/05/2025 10:43 AM EDT [facility] Comment: Specimen hemolysis has exceeded the interference as defined by Sindy. Value may be falsely increased. Suggest recollection if clinically indicated. Chloride 92(L) 98 - 107 mmol/L 06/05/2025 10:43 AM EDT [facility] CO2 19(L) 20 - 31 mmol/L 06/05/2025 10:43 AM EDT [facility] Anion Gap 16 9 - 16 mmol/L 06/05/2025 10:43 AM EDT [facility] Blood BLOOD SPECIMEN / Unknown 06/05/2025 10:43 AM EDT 06/05/2025 2:35 PM EDT Deann Carter MD CHEMISTRY ORDERABLES Final Resul t Performing Organization Address City/[facility]/ZIP Co de Phone Number [facility] [address] [place] [address], [facility] [phone] * POC Glucose Fingerstick (06/05/2025 7:35 AM EDT) POC Glucose 108 75 - 110 mg/dL 06/05/2025 7:35 AM EDT [facility] 06/05/2025 7:35 AM EDT 06/05/2025 7:42 AM EDT Flaco Ren MD POINT OF CARE TEST ORDERABLES F inal Result Performing Organization Address City/[facility]/ZIP Co de Phone Number [facility] [address] [place] [address] * (ABNORMAL) Protime-INR (06/05/2025 4:49 AM EDT) Protime 22.4(H) 11.7 - 14.9 sec 06/05/2025 4:49 AM EDT [facility] INR 1.9 06/05/2025 4:49 AM EDT [facility] Comment: Therapeutic Range: Moderate Anticoagulant Intensity: INR = 2.0-3.0 High Anticoagulant Intensity: INR = 2.5-3.5 Blood BLOOD SPECIMEN / Unknown 06/05/2025 4:49 AM EDT 06/05/2025 4:52 AM EDT Adore Cueto RETAIL BUYER - MOTORBOAT MECHANIC HEMATOLOGY ORDERABLES Fi nal Result Performing Organization Address [facility] Co de Phone Number [facility] [address] [place] [address] * (ABNORMAL) Basic Metabolic Panel (06/05/2025 4:49 AM EDT) Sodium 126(L) 136 - 145 mmol/L 06/05/2025 4:49 AM EDT [facility] Potassium 4.5 3.7 - 5.3 mmol/L 06/05/2025 4:49 AM EDT [facility] Comment: Specimen hemolysis has exceeded the interference as defined by Sindy. Value may be falsely increased. Suggest recollection if clinically indicated. Chloride 95(L) 98 - 107 mmol/L 06/05/2025 4:49 AM EDT [facility] CO2 19(L) 20 - 31 mmol/L 06/05/2025 4:49 AM EDT [facility] Anion Gap 12 9 - 16 mmol/L 06/05/2025 4:49 AM EDT [facility] Glucose 112(H) 74 - 99 mg/dL 06/05/2025 4:49 AM EDT [facility] BUN 13 8 - 23 mg/dL 06/05/2025 4:49 AM EDT [facility] Creatinine 0.8 0.7 - 1.2 mg/dL 06/05/2025 4:49 AM EDT [facility] Est, Glom Filt Rate 88 >60 mL/min/1. 73m2 06/05/2025 4:49 AM EDT [facility] Comment: These results are not intended for use in patients <18 years of age. eGFR results are calculated without a race factor using the 2020 CKD-EPI equation. Careful clinical correlation is recommended, particularly when comparing to results calculated using previous equations. The CKD-EPI equation is less accurate in patients with extremes of muscle mass, extra-renal metabolism of creatine, excessive creatine ingestion, or following therapy that affects renal tubular secretion. Calcium 9.2 8.6 - 10.4 mg/dL 06/05/2025 4:49 AM EDT [facility] Blood BLOOD SPECIMEN / Unknown 06/05/2025 4:49 AM EDT 06/05/2025 4:52 AM EDT Beto Hedrick DO CHEMISTRY ORDERABLES Final R esult [facility] [address] [place] [address], [facility] [phone] * (ABNORMAL) Electrolyte Panel (06/04/2025 10:29 PM EDT) Sodium 121(L) 136 - 145 mmol/L 06/04/2025 10:29 PM EDT [facility] Potassium 4.3 3.7 - 5.3 mmol/L 06/04/2025 10:29 PM EDT [facility] Chloride 91(L) 98 - 107 mmol/L 06/04/2025 10:29 PM EDT [facility] CO2 21 20 - 31 mmol/L 06/04/2025 10:29 PM EDT [facility] Anion Gap 9 9 - 16 mmol/L 06/04/2025 10:29 PM EDT [facility] Blood BLOOD SPECIMEN / Unknown 06/04/2025 10:29 PM EDT 06/04/2025 10:37 PM EDT Beto Hedrick DO CHEMISTRY ORDERABLES Final R esult Performing Organization Address [facility]/ZIP Co de Phone Number [address] [phone] * (ABNORMAL) Electrolyte Panel (06/04/2025 9:57 PM EDT) Sodium 122(L) 136 - 145 mmol/L 06/04/2025 9:57 PM EDT [facility] Potassium 4.3 3.7 - 5.3 mmol/L 06/04/2025 9:57 PM EDT [facility] Chloride 90(L) 98 - 107 mmol/L 06/04/2025 9:57 PM EDT [facility] CO2 20 20 - 31 mmol/L 06/04/2025 9:57 PM EDT [facility] Anion Gap 12 9 - 16 mmol/L 06/04/2025 9:57 PM EDT [facility] Blood BLOOD SPECIMEN / Unknown 06/04/2025 9:57 PM EDT 06/04/2025 10:11 PM EDT us Beto Hedrick DO CHEMISTRY ORDERABLES Final R esult Performing Organization Address [facility] Co de Phone Number [address] [phone] * (ABNORMAL) POC Glucose Fingerstick (06/04/2025 8:12 PM EDT) POC Glucose 119(H) 75 - 110 mg/dL 06/04/2025 8:12 PM EDT [facility] 06/04/2025 8:12 PM EDT 06/04/2025 8:19 PM EDT Flaco Ren MD POINT OF CARE TEST ORDERABLES F inal Result Performing Organization Address City/[facility]/[place] [address], [facility] [phone] * (ABNORMAL) Protime-INR (06/04/2025 2:23 PM EDT) [facility] Protime 21.4(H) 11.7 - 14.9 sec 06/04/2025 2:23 PM EDT [facility] INR 1.8 06/04/2025 2:23 PM EDT [facility] Comment: Therapeutic Range: Moderate Anticoagulant Intensity: INR = 2.0-3.0 High Anticoagulant Intensity: INR = 2.5-3.5 Blood BLOOD SPECIMEN / Unknown 06/04/2025 2:23 PM EDT 06/04/2025 2:28 PM EDT Adore Cueto [employer] HEMATOLOGY ORDERABLES Fi nal Result Performing Organization Address [facility]/ZIP Co de Phone Number [address] [phone] * (ABNORMAL) Electrolyte Panel (06/04/2025 2:23 PM EDT) [facility] Sodium 118(LL) 136 - 145 mmol/L 06/04/2025 2:23 PM EDT [facility] Potassium 4.5 3.7 - 5.3 mmol/L 06/04/2025 2:23 PM EDT [facility] Chloride 88(L) 98 - 107 mmol/L 06/04/2025 2:23 PM EDT [facility] CO2 19(L) 20 - 31 mmol/L 06/04/2025 2:23 PM EDT [facility] Anion Gap 11 9 - 16 mmol/L 06/04/2025 2:23 PM EDT [facility] Blood BLOOD SPECIMEN / Unknown 06/04/2025 2:23 PM EDT 06/04/2025 2:28 PM EDT Beto Hedrick DO CHEMISTRY ORDERABLES Final R esult Performing Organization Address [facility] Co de Phone Number [address] [phone] * POC Glucose Fingerstick (06/04/2025 12:09 PM EDT) [facility] POC Glucose 96 75 - 110 mg/dL 06/04/2025 12:09 PM EDT [facility] 06/04/2025 12:0 9 PM EDT 06/04/2025 12:15 PM EDT us Flaco Ren MD POINT OF CARE TEST ORDERABLES F inal Result [facility] [address] [phone] * (ABNORMAL) Basic Metabolic Panel w/ Reflex to MG (06/04/2025 10:09 AM EDT) Sodium 118(LL) 136 - 145 mmol/L 06/04/2025 10:09 AM EDT [facility] Potassium 4.8 3.7 - 5.3 mmol/L 06/04/2025 10:09 AM EDT [facility] Comment: Specimen hemolysis has exceeded the interference as defined by Sindy. Value may be falsely increased. Suggest recollection if clinically indicated. Chloride 87(L) 98 - 107 mmol/L 06/04/2025 10:09 AM EDT [facility] CO2 21 20 - 31 mmol/L 06/04/2025 10:09 AM EDT [facility] Anion Gap 10 9 - 16 mmol/L 06/04/2025 10:09 AM EDT [facility] Glucose 107(H) 74 - 99 mg/dL 06/04/2025 10:09 AM EDT [facility] BUN 11 8 - 23 mg/dL 06/04/2025 10:09 AM EDT [facility] Creatinine 0.7 0.7 - 1.2 mg/dL 06/04/2025 10:09 AM EDT [facility] Est, Glom Filt Rate >90 >60 mL/min/1. 73m2 06/04/2025 10:09 AM EDT [facility] Comment: These results are not intended for use in patients <18 years of age. eGFR results are calculated without a race factor using the 2020 CKD-EPI equation. Careful clinical correlation is recommended, particularly when comparing to results calculated using previous equations. The CKD-EPI equation is less accurate in patients with extremes of muscle mass, extra-renal metabolism of creatine, excessive creatine ingestion, or following therapy that affects renal tubular secretion. Calcium 8.6 8.6 - 10.4 mg/dL 06/04/2025 10:09 AM EDT [facility] Blood BLOOD SPECIMEN / Unknown 06/04/2025 10:09 AM EDT 06/04/2025 10:18 AM EDT José Good MD CHEMISTRY ORDERABLES Final Resu lt Performing Organization Address [facility] Co de Phone Number [facility] [address] [place] [address], [facility] [phone] * (ABNORMAL) POC Glucose Fingerstick (06/04/2025 10:08 AM EDT) POC Glucose 117(H) 75 - 110 mg/dL 06/04/2025 10:08 AM EDT [facility] 06/04/2025 10:0 8 AM EDT 06/04/2025 10:15 AM EDT Flaco Ren MD POINT OF CARE TEST ORDERABLES F inal Result Performing Organization Address [facility] Phone Number [facility] [address] [place] [address], [facility] [phone] * POC Glucose Fingerstick (06/04/2025 7:22 AM EDT) POC Glucose 93 75 - 110 mg/dL 06/04/2025 7:22 AM EDT [facility] 06/04/2025 7:22 AM EDT 06/04/2025 7:30 AM EDT us Flaco Ren MD POINT OF CARE TEST ORDERABLES F inal Result Performing Organization Address [facility] de Phone Number [facility] [address] [place] [address], [facility] [phone] * (ABNORMAL) Basic Metabolic Panel w/ Reflex to MG (06/04/2025 7:03 AM EDT) Sodium 119(LL) 136 - 145 mmol/L 06/04/2025 7:03 AM EDT [facility] Potassium 4.6 3.7 - 5.3 mmol/L 06/04/2025 7:03 AM EDT [facility] Comment: Specimen hemolysis has exceeded the interference as defined by Sindy. Value may be falsely increased. Suggest recollection if clinically indicated. Chloride 88(L) 98 - 107 mmol/L 06/04/2025 7:03 AM EDT [facility] CO2 19(L) 20 - 31 mmol/L 06/04/2025 7:03 AM EDT [facility] Anion Gap 12 9 - 16 mmol/L 06/04/2025 7:03 AM EDT [facility] Glucose 86 74 - 99 mg/dL 06/04/2025 7:03 AM EDT [facility] BUN 11 8 - 23 mg/dL 06/04/2025 7:03 AM EDT [facility] Creatinine 0.6(L) 0.7 - 1.2 mg/dL 06/04/2025 7:03 AM EDT [facility] Est, Glom Filt Rate >90 >60 mL/min/1. 73m2 06/04/2025 7:03 AM EDT [facility] Comment: These results are not intended for use in patients <18 years of age. eGFR results are calculated without a race factor using the 2020 CKD-EPI equation. Careful clinical correlation is recommended, particularly when comparing to results calculated using previous equations. The CKD-EPI equation is less accurate in patients with extremes of muscle mass, extra-renal metabolism of creatine, excessive creatine ingestion, or following therapy that affects renal tubular secretion. Calcium 8.8 8.6 - 10.4 mg/dL 06/04/2025 7:03 AM EDT [facility] Blood BLOOD SPECIMEN / Unknown 06/04/2025 7:03 AM EDT 06/04/2025 7:25 AM EDT us José Good MD CHEMISTRY ORDERABLES Final Resu lt [facility] [address] [place] [address], [facility] [phone] * POC Glucose Fingerstick (06/04/2025 6:19 AM EDT) POC Glucose 76 75 - 110 mg/dL 06/04/2025 6:19 AM EDT [facility] 06/04/2025 6:19 AM EDT 06/04/2025 6:40 AM EDT us Flaco Ren MD POINT OF CARE TEST ORDERABLES F inal Result [facility] [address] [place] [address], [facility] [phone] * (ABNORMAL) Basic Metabolic Panel w/ Reflex to MG (06/04/2025 5:39 AM EDT) Sodium 119(LL) 136 - 145 mmol/L 06/04/2025 5:39 AM EDT [facility] Potassium 4.1 3.7 - 5.3 mmol/L 06/04/2025 5:39 AM EDT [facility] Comment: Specimen hemolysis has exceeded the interference as defined by Sindy. Value may be falsely increased. Suggest recollection if clinically indicated. Chloride 88(L) 98 - 107 mmol/L 06/04/2025 5:39 AM EDT [facility] CO2 19(L) 20 - 31 mmol/L 06/04/2025 5:39 AM EDT [facility] Anion Gap 12 9 - 16 mmol/L 06/04/2025 5:39 AM EDT [facility] Glucose 81 74 - 99 mg/dL 06/04/2025 5:39 AM EDT [facility] BUN 11 8 - 23 mg/dL 06/04/2025 5:39 AM EDT [facility] Creatinine 0.6(L) 0.7 - 1.2 mg/dL 06/04/2025 5:39 AM EDT [facility] Est, Glom Filt Rate >90 >60 mL/min/1. 73m2 06/04/2025 5:39 AM EDT [facility] Comment: These results are not intended for use in patients <18 years of age. eGFR results are calculated without a race factor using the 2020 CKD-EPI equation. Careful clinical correlation is recommended, particularly when comparing to results calculated using previous equations. The CKD-EPI equation is less accurate in patients with extremes of muscle mass, extra-renal metabolism of creatine, excessive creatine ingestion, or following therapy that affects renal tubular secretion. Calcium 8.7 8.6 - 10.4 mg/dL 06/04/2025 5:39 AM EDT [facility] Blood BLOOD SPECIMEN / Unknown 06/04/2025 5:39 AM EDT 06/04/2025 6:16 AM EDT us José Good MD CHEMISTRY ORDERABLES Final Resu lt [facility] [address] [phone] * CT HEAD WO CONTRAST (06/04/2025 4:13 AM EDT) Anatomical Region Laterality Modality Head Computed Tomogra phy 06/04/2025 5:04 AM EDT Impressions 06/04/2025 5:06 AM EDT 1. No acute intracranial abnormality. 2. Acute right maxillary sinusitis. Narrative 06/04/2025 5:06 AM EDT EXAMINATION: CT OF THE HEAD WITHOUT CONTRAST 06/04/2025 3:59 am TECHNIQUE: CT of the head was performed without the administration of intravenous contrast. Automated exposure control, iterative reconstruction, and/or weight based adjustment of the mA/kV was utilized to reduce the radiation dose to as low as reasonably achievable. COMPARISON: None. HISTORY: ORDERING SYSTEM PROVIDED HISTORY: Somnolent, hyponatremia on 3% saline TECHNOLOGIST PROVIDED HISTORY: Somnolent, hyponatremia on 3% saline Reason for Exam: Somnolent, hyponatremia on 3% saline FINDINGS: BRAIN/VENTRICLES: There is no acute intracerebral hemorrhage or extra-axial fluid collection. There is mild cerebral atrophy with mild periventricular white matter small vessel ischemic disease. ORBITS: Status post bilateral cataract removal. SINUSES: An air-fluid level is present in the right maxillary sinus. Mild mucosal hypertrophy involves the left ethmoid air cells. SOFT TISSUES/SKULL: The calvarium is intact. Procedure Note Dixon Crockett MD - 06/04/2025 EXAMINATION: CT OF THE HEAD WITHOUT CONTRAST 06/04/2025 3:59 am TECHNIQUE: CT of the head was performed without the administration of intravenous contrast. Automated exposure control, iterative reconstruction, and/orweight based adjustment of the mA/kV was utilized to reduce the radiation dose toas low as reasonably achievable. COMPARISON: None. HISTORY: ORDERING SYSTEM PROVIDED HISTORY: Somnolent, hyponatremia on 3% saline TECHNOLOGIST PROVIDED HISTORY: Somnolent, hyponatremia on 3% saline Reason for Exam: Somnolent, hyponatremia on 3% saline FINDINGS: BRAIN/VENTRICLES: There is no acute intracerebral hemorrhage orextra-axial fluid collection. There is mild cerebral atrophy with mildperiventricular white matter small vessel ischemic disease. ORBITS: Status post bilateral cataract removal. SINUSES: An air-fluid level is present in the right maxillary sinus.Mild mucosal hypertrophy involves the left ethmoid air cells. SOFT TISSUES/SKULL: The calvarium is intact. IMPRESSION: 1. No acute intracranial abnormality. 2. Acute right maxillary sinusitis. Bisi Vaughn MD [facility] [place] [place] CT ORDERABLES Final Result * (ABNORMAL) Basic Metabolic Panel w/ Reflex to MG (06/04/2025 3:39 AM EDT) Sodium 120(L) 136 - 145 mmol/L 06/04/2025 3:39 AM EDT [facility] Potassium 4.3 3.7 - 5.3 mmol/L 06/04/2025 3:39 AM EDT [facility] Chloride 88(L) 98 - 107 mmol/L 06/04/2025 3:39 AM EDT [facility] CO2 21 20 - 31 mmol/L 06/04/2025 3:39 AM EDT [facility] Anion Gap 11 9 - 16 mmol/L 06/04/2025 3:39 AM EDT [facility] Glucose 75 74 - 99 mg/dL 06/04/2025 3:39 AM EDT [facility] BUN 11 8 - 23 mg/dL 06/04/2025 3:39 AM EDT [facility] Creatinine 0.6(L) 0.7 - 1.2 mg/dL 06/04/2025 3:39 AM EDT [facility] Est, Glom Filt Rate >90 >60 mL/min/1. 73m2 06/04/2025 3:39 AM EDT [facility] Comment: These results are not intended for use in patients <18 years of age. eGFR results are calculated without a race factor using the 2020 CKD-EPI equation. Careful clinical correlation is recommended, particularly when comparing to results calculated using previous equations. The CKD-EPI equation is less accurate in patients with extremes of muscle mass, extra-renal metabolism of creatine, excessive creatine ingestion, or following therapy that affects renal tubular secretion. Calcium 9.0 8.6 - 10.4 mg/dL 06/04/2025 3:39 AM EDT [facility] 06/04/2025 3:39 AM EDT 06/04/2025 4:16 AM EDT Bisi Vaughn MD CHEMISTRY ORDERABLES Final Resu lt Performing Organization Address [facility]/ZIP Co de Phone Number [facility] [address] [place] [address] * TSH (06/04/2025 3:39 AM EDT) TSH 2.95 0.27 - 4.20 uIU/mL 06/04/2025 3:39 AM EDT [facility] Blood BLOOD SPECIMEN / Unknown 06/04/2025 3:39 AM EDT 06/04/2025 4:16 AM EDT Bisi Vaughn MD CHEMISTRY ORDERABLES Final Resu lt [facility] [address] [place] [address], [facility] [phone] * T4, Free (06/04/2025 3:39 AM EDT) T4 Free 1.5 0.92 - 1.68 ng/dL 06/04/2025 3:39 AM EDT [facility] Blood BLOOD SPECIMEN / Unknown 06/04/2025 3:39 AM EDT 06/04/2025 4:16 AM EDT Bisi Vaughn MD CHEMISTRY ORDERABLES Final Resu lt Performing Organization Address [facility] Co de Phone Number [facility] [address] [place] [address] * Cortisol Total (06/04/2025 3:39 AM EDT) Cortisol 11.7 2.5 - 19.5 ug/dL 06/04/2025 3:39 AM EDT [facility] Comment: Cortisol Reference Range: AM 6.0-18.4 PM 2.7-10.5 Blood BLOOD SPECIMEN / Unknown 06/04/2025 3:39 AM EDT 06/04/2025 4:16 AM EDT Bisi Vaughn MD CHEMISTRY ORDERABLES Final Resu lt Performing Organization Address [facility] de Phone Number [facility] [address] [place] [address] * (ABNORMAL) Basic Metabolic Panel w/ Reflex to MG (06/04/2025 2:08 AM EDT) Sodium 120(L) 136 - 145 mmol/L 06/04/2025 2:08 AM EDT [facility] Potassium 4.4 3.7 - 5.3 mmol/L 06/04/2025 2:08 AM EDT [facility] Comment: Specimen hemolysis has exceeded the interference as defined by Sindy. Value may be falsely increased. Suggest recollection if clinically indicated. Chloride 89(L) 98 - 107 mmol/L 06/04/2025 2:08 AM EDT [facility] CO2 17(L) 20 - 31 mmol/L 06/04/2025 2:08 AM EDT [facility] Anion Gap 14 9 - 16 mmol/L 06/04/2025 2:08 AM EDT [facility] Glucose 76 74 - 99 mg/dL 06/04/2025 2:08 AM EDT [facility] BUN 11 8 - 23 mg/dL 06/04/2025 2:08 AM EDT [facility] Creatinine 0.6(L) 0.7 - 1.2 mg/dL 06/04/2025 2:08 AM EDT [facility] Est, Glom Filt Rate >90 >60 mL/min/1. 73m2 06/04/2025 2:08 AM EDT [facility] Comment: These results are not intended for use in patients <18 years of age. eGFR results are calculated without a race factor using the 2020 CKD-EPI equation. Careful clinical correlation is recommended, particularly when comparing to results calculated using previous equations. The CKD-EPI equation is less accurate in patients with extremes of muscle mass, extra-renal metabolism of creatine, excessive creatine ingestion, or following therapy that affects renal tubular secretion. Calcium 8.5(L) 8.6 - 10.4 mg/dL 06/04/2025 2:08 AM EDT [facility] Blood BLOOD SPECIMEN / Unknown 06/04/2025 2:08 AM EDT 06/04/2025 2:23 AM EDT José Good MD CHEMISTRY ORDERABLES Final Resu lt [facility] [address] [place] [address], [facility] [phone] * POCT Glucose (06/04/2025 2:02 AM EDT) POC Glucose 81 74 - 100 mg/dL 06/04/2025 2:02 AM EDT [facility] 06/04/2025 2:02 AM EDT 06/04/2025 2:05 AM EDT Beto Hedrick DO POINT OF CARE TEST ORDERABLE S Final Result [facility] [address] [place] [address], [facility] [phone] * Lactic Acid, POC (06/04/2025 2:02 AM EDT) POC Lactic Acid 0.8 0.56 - 1.39 mmol/L 06/04/2025 2:02 AM EDT [facility] 06/04/2025 2:02 AM EDT 06/04/2025 2:05 AM EDT [facility] POINT OF CARE TEST ORDERABLE S Final Result Performing Organization Address [facility]/ZIP Co de Phone Number [facility] [address] [place] [address], [facility] [phone] * POCT urea (BUN) (06/04/2025 2:02 AM EDT) POC BUN 11 8 - 26 mg/dL 06/04/2025 2:02 AM EDT [facility] 06/04/2025 2:02 AM EDT 06/04/2025 2:05 AM EDT [facility] POINT OF CARE TEST ORDERABLE S Final Result Performing Organization Address [facility]/ZIP Co de Phone Number [facility] [address] [place] [address], [facility] [phone] * CALCIUM, IONIC (POC) (06/04/2025 2:02 AM EDT) Pathologist [facility] POC Ionized Calcium 1.18 1.15 - 1.33 mmol/L 06/04/2025 2:02 AM EDT [facility] 06/04/2025 2:02 AM EDT 06/04/2025 2:05 AM EDT [facility] CHEMISTRY ORDERABLES Final R esult Performing Organization Address [facility]/ZIP Co de Phone Number [facility] [address] [place] [address], [facility] [phone] * Creatinine W/GFR Point of Care (06/04/2025 2:02 AM EDT) POC Creatinine 0.7 0.51 - 1.19 mg/dL 06/04/2025 2:02 AM EDT [facility] eGFR, POC >90 >60 mL/min/1. 73m2 06/04/2025 2:02 AM EDT [facility] Comment: These results are not intended for use in patients <18 years of age. eGFR results are calculated without a race factor using the 2020 CKD-EPI equation. Careful clinical correlation is recommended, particularly when comparing to results calculated using previous equations. The CKD-EPI equation is less accurate in patients with extremes of muscle mass, extra-renal metabolism of creatine, excessive creatine ingestion, or following therapy that affects renal tubular secretion. 06/04/2025 2:02 AM EDT 06/04/2025 2:05 AM EDT [facility] POINT OF CARE TEST ORDERABLE S Final Result Performing Organization Address [facility] Co de Phone Number [place] [address], [facility] [phone] * (ABNORMAL) Hemoglobin and hematocrit, blood (06/04/2025 2:02 AM EDT) Pathologist [facility] POC Hemoglobin (calc) 12.3(L) 13.5 - 17.5 g/dL 06/04/2025 2:02 AM EDT [facility] POC Hematocrit 36(L) 41 - 53 % 06/04/2025 2:02 AM EDT [facility] 06/04/2025 2:02 AM EDT 06/04/2025 2:05 AM EDT [facility] HEMATOLOGY ORDERABLES Final Result Performing Organization Address [facility] Co de Phone Number [place] [address], [facility] [phone] * (ABNORMAL) ELECTROLYTES PLUS (06/04/2025 2:02 AM EDT) POC Sodium 123(L) 138 - 146 mmol/L 06/04/2025 2:02 AM EDT [facility] POC Potassium 3.9 3.5 - 4.5 mmol/L 06/04/2025 2:02 AM EDT [facility] POC Chloride 89(L) 98 - 107 mmol/L 06/04/2025 2:02 AM EDT [facility] POC TCO2 23 22 - 30 mmol/L 06/04/2025 2:02 AM EDT [facility] POC Anion Gap 12 7 - 16 mmol/L 06/04/2025 2:02 AM EDT [facility] 06/04/2025 2:02 AM EDT 06/04/2025 2:05 AM EDT us Beto Hedrick DO CHEMISTRY ORDERABLES Final R esult Performing Organization Address City/[facility]/ZIP Co de Phone Number [facility] [address] [place] [address], [facility] [phone] * Arterial Blood Gas, POC (06/04/2025 2:02 AM EDT) POC pH 7.412 7.350 - 7.450 06/04/2025 2:02 AM EDT [facility] POC pCO2 38.6 35.0 - 48.0 mm Hg 06/04/2025 2:02 AM EDT [facility] POC PO2 91.7 83.0 - 108.0 mm Hg 06/04/2025 2:02 AM EDT [facility] POC HCO3 24.6 21.0 - 28.0 mmol/L 06/04/2025 2:02 AM EDT [facility] Positive Base Excess, Art 0.1 0.0 - 3.0 mmol/L 06/04/2025 2:02 AM EDT [facility] POC O2 SAT 97.2 94.0 - 98.0 % 06/04/2025 2:02 AM EDT [facility] O2 Delivery Device Room Air 06/04/2025 2:02 AM EDT [facility] Sample Site Right Radial Artery 06/04/2025 2:02 AM EDT [facility] 06/04/2025 2:02 AM EDT 06/04/2025 2:05 AM EDT us Beto Hedrick DO POINT OF CARE TEST ORDERABLE S Final Result Performing Organization Address City/[facility]/ZIP Co de Phone Number [facility] [address] [place] [address], [facility] [phone] * Sodium, urine, random (06/04/2025 1:00 AM EDT) Sodium, Ur 159 mmol/L 06/04/2025 1:00 AM EDT [facility] Comment:No normal range esta blished. 06/04/2025 1:00 AM EDT 06/04/2025 1:25 AM EDT [facility] URINE ORDERABLES Final Resul t Performing Organization Address [facility] de Phone Number [facility] [address] [place] [address], [facility] [phone] * Osmolality, Urine (06/04/2025 1:00 AM EDT) Osmolality, Ur 590 80 - 1300 mOsm/kg 06/04/2025 1:00 AM EDT [facility] 06/04/2025 1:00 AM EDT 06/04/2025 1:25 AM EDT [facility] URINE ORDERABLES Final Resul t Performing Organization Address [facility] de Phone Number [facility] [address] [place] [address], [facility] [phone] * (ABNORMAL) Basic Metabolic Panel w/ Reflex to MG (06/04/2025 12:24 AM EDT) Sodium 117(LL) 136 - 145 mmol/L 06/04/2025 12:24 AM EDT [facility] Potassium 4.1 3.7 - 5.3 mmol/L 06/04/2025 12:24 AM EDT [facility] Comment: Specimen hemolysis has exceeded the interference as defined by Sindy. Value may be falsely increased. Suggest recollection if clinically indicated. Chloride 86(L) 98 - 107 mmol/L 06/04/2025 12:24 AM EDT [facility] CO2 16(L) 20 - 31 mmol/L 06/04/2025 12:24 AM EDT [facility] Anion Gap 15 9 - 16 mmol/L 06/04/2025 12:24 AM EDT [facility] Glucose 90 74 - 99 mg/dL 06/04/2025 12:24 AM EDT [facility] BUN 12 8 - 23 mg/dL 06/04/2025 12:24 AM EDT [facility] Creatinine 0.7 0.7 - 1.2 mg/dL 06/04/2025 12:24 AM EDT [facility] Est, Glom Filt Rate >90 >60 mL/min/1. 73m2 06/04/2025 12:24 AM EDT [facility] Comment: These results are not intended for use in patients <18 years of age. eGFR results are calculated without a race factor using the 2020 CKD-EPI equation. Careful clinical correlation is recommended, particularly when comparing to results calculated using previous equations. The CKD-EPI equation is less accurate in patients with extremes of muscle mass, extra-renal metabolism of creatine, excessive creatine ingestion, or following therapy that affects renal tubular secretion. Calcium 8.6 8.6 - 10.4 mg/dL 06/04/2025 12:24 AM EDT [facility] Blood BLOOD SPECIMEN / Unknown 06/04/2025 12:24 AM EDT 06/04/2025 12:33 AM EDT José Good MD CHEMISTRY ORDERABLES Final Resu lt [facility] [address] [place] [address], [facility] [phone] * POC Glucose Fingerstick (06/03/2025 8:06 PM EDT) Pathologist [facility] POC Glucose 92 75 - 110 mg/dL 06/03/2025 8:06 PM EDT [facility] 06/03/2025 8:06 PM EDT 06/03/2025 8:14 PM EDT Beto Hedrick DO POINT OF CARE TEST ORDERABLE S Final Result [facility] [address] [place] [address], [facility] [phone] * (ABNORMAL) Osmolality (06/03/2025 6:43 PM EDT) Serum Osmolality 251(L) 275 - 295 mOsm/kg 06/03/2025 6:43 PM EDT [facility] 06/03/2025 6:43 PM EDT 06/03/2025 7:00 PM EDT Beto [facility] CHEMISTRY ORDERABLES Final R esult Performing Organization Address [facility] Phone Number [facility] [address] [place] [address], [facility] [phone] * PREVIOUS SPECIMEN (06/03/2025 6:43 PM EDT) 06/03/2025 6:43 PM EDT 06/03/2025 6:49 PM EDT Beto [facility] CHEMISTRY ORDERABLES Final R esult Performing Organization Address [facility] Phone Number [facility] [address] [place] [address], [facility] [phone] * (ABNORMAL) Electrolyte Panel (06/03/2025 6:43 PM EDT) Pathologist [facility] Sodium 117(LL) 136 - 145 mmol/L 06/03/2025 6:43 PM EDT [facility] Potassium 4.4 3.7 - 5.3 mmol/L 06/03/2025 6:43 PM EDT [facility] Comment: Specimen hemolysis has exceeded the interference as defined by Sindy. Value may be falsely increased. Suggest recollection if clinically indicated. Chloride 86(L) 98 - 107 mmol/L 06/03/2025 6:43 PM EDT [facility] CO2 17(L) 20 - 31 mmol/L 06/03/2025 6:43 PM EDT [facility] Anion Gap 14 9 - 16 mmol/L 06/03/2025 6:43 PM EDT [facility] 06/03/2025 6:43 PM EDT 06/03/2025 6:49 PM EDT [facility] CHEMISTRY ORDERABLES Final R esult Performing Organization Address [facility]/ZIP Co de Phone Number [facility] [address] [place] [address], [facility] [phone] * POC Glucose Fingerstick (06/03/2025 4:51 PM EDT) Pathologist [facility] POC Glucose 98 75 - 110 mg/dL 06/03/2025 4:51 PM EDT [facility] 06/03/2025 4:51 PM EDT 06/03/2025 4:58 PM EDT [facility] POINT OF CARE TEST ORDERABLE S Final Result Performing Organization Address [facility]/ZIP Co de Phone Number [facility] [address] [place] [address], [facility] [phone] * (ABNORMAL) POC Glucose Fingerstick (06/03/2025 11:07 AM EDT) [facility] POC Glucose 124(H) 75 - 110 mg/dL 06/03/2025 11:07 AM EDT [facility] 06/03/2025 11:0 7 AM EDT 06/03/2025 11:14 AM EDT [facility] POINT OF CARE TEST ORDERABLE S Final Result Performing Organization Address City/[facility]/ZIP Co de Phone Number [facility] [address] [place] [address], [facility] [phone] * (ABNORMAL) Electrolyte Panel (06/03/2025 8:29 AM EDT) Pathologist [facility] Sodium 120(L) 136 - 145 mmol/L 06/03/2025 8:29 AM EDT [facility] Potassium 4.5 3.7 - 5.3 mmol/L 06/03/2025 8:29 AM EDT [facility] Comment: Specimen hemolysis has exceeded the interference as defined by Sindy. Value may be falsely increased. Suggest recollection if clinically indicated. Chloride 89(L) 98 - 107 mmol/L 06/03/2025 8:29 AM EDT [facility] CO2 19(L) 20 - 31 mmol/L 06/03/2025 8:29 AM EDT [facility] Anion Gap 12 9 - 16 mmol/L 06/03/2025 8:29 AM EDT [facility] Blood BLOOD SPECIMEN / Unknown 06/03/2025 8:29 AM EDT 06/03/2025 8:40 AM EDT Beto Camden CHEMISTRY ORDERABLES Final R esult Performing Organization Address [facility]/ZIP Co de Phone Number [facility] [address] [place] [address], [facility] [phone] * (ABNORMAL) POC Glucose Fingerstick (06/03/2025 7:46 AM EDT) POC Glucose 117(H) 75 - 110 mg/dL 06/03/2025 7:46 AM EDT [facility] 06/03/2025 7:46 AM EDT 06/03/2025 7:53 AM EDT Beto Hedrick DO POINT OF CARE TEST ORDERABLE S Final Result Performing Organization Address [facility] Phone Number [facility] [address] [place] [address], [facility] [phone] * (ABNORMAL) Protime-INR (06/03/2025 6:18 AM EDT) Protime 20.3(H) 11.7 - 14.9 sec 06/03/2025 6:18 AM EDT [facility] INR 1.7 06/03/2025 6:18 AM EDT [facility] Comment: Therapeutic Range: Moderate Anticoagulant Intensity: INR = 2.0-3.0 High Anticoagulant Intensity: INR = 2.5-3.5 Blood BLOOD SPECIMEN / Unknown 06/03/2025 6:18 AM EDT 06/03/2025 6:46 AM EDT Adore Cueto [employer] HEMATOLOGY ORDERABLES Fi nal Result Performing Organization Address City/[facility] Co de Phone Number [facility] [address] [place] [address], [facility] [phone] * (ABNORMAL) CBC with Auto Differential (06/03/2025 6:18 AM EDT) WBC 7.2 3.5 - 11.3 k/uL 06/03/2025 6:18 AM EDT [facility] RBC 3.98(L) 4.21 - 5.77 m/uL 06/03/2025 6:18 AM EDT [facility] Hemoglobin 12.3(L) 13.0 - 17.0 g/dL 06/03/2025 6:18 AM EDT [facility] Hematocrit 35.2(L) 40.7 - 50.3 % 06/03/2025 6:18 AM EDT [facility] MCV 88.4 82.6 - 102.9 fL 06/03/2025 6:18 AM EDT [facility] MCH 30.9 25.2 - 33.5 pg 06/03/2025 6:18 AM EDT [facility] MCHC 34.9(H) 28.4 - 34.8 g/dL 06/03/2025 6:18 AM EDT [facility] RDW 13.0 11.8 - 14.4 % 06/03/2025 6:18 AM EDT [facility] Platelets See Reflexed IPF Result 138 - 453 k/uL 06/03/2025 6:18 AM EDT [facility] Platelet, Fluorescence 132(L) 138 - 453 k/uL 06/03/2025 6:18 AM EDT [facility] Platelet, Immature Fraction 5.3 1.1 - 10.3 % 06/03/2025 6:18 AM EDT [facility] NRBC Automated 0.0 0.0 per 100 WBC 06/03/2025 6:18 AM EDT [facility] Neutrophils % 64 36 - 65 % 06/03/2025 6:18 AM EDT [facility] Lymphocytes % 23(L) 24 - 43 % 06/03/2025 6:18 AM EDT [facility] Monocytes % 11 3 - 12 % 06/03/2025 6:18 AM EDT [facility] Eosinophils % 1 1 - 4 % 06/03/2025 6:18 AM EDT [facility] Basophils % 1 0 - 2 % 06/03/2025 6:18 AM EDT [facility] Immature Granulocytes % 0 0 % 06/03/2025 6:18 AM EDT [facility] Neutrophils Absolute 4.63 1.50 - 8.10 k/uL 06/03/2025 6:18 AM EDT [facility] Lymphocytes Absolute 1.68 1.10 - 3.70 k/uL 06/03/2025 6:18 AM EDT [facility] Monocytes Absolute 0.80 0.10 - 1.20 k/uL 06/03/2025 6:18 AM EDT [facility] Eosinophils Absolute 0.08 0.00 - 0.44 k/uL 06/03/2025 6:18 AM EDT [facility] Basophils Absolute 0.04 0.00 - 0.20 k/uL 06/03/2025 6:18 AM EDT [facility] Immature Granulocytes Absolute <0.03 0.00 - 0.30 k/uL 06/03/2025 6:18 AM EDT [facility] Blood BLOOD SPECIMEN / Unknown 06/03/2025 6:18 AM EDT 06/03/2025 6:46 AM EDT us Adore Cueto [employer] - [employer] HEMATOLOGY ORDERABLES Fi nal Result [facility] [address] [phone] * (ABNORMAL) Basic Metabolic Panel w/ Reflex to MG (06/03/2025 6:18 AM EDT) Sodium 121(L) 136 - 145 mmol/L 06/03/2025 6:18 AM EDT [facility] Potassium 4.8 3.7 - 5.3 mmol/L 06/03/2025 6:18 AM EDT [facility] Comment: Specimen hemolysis has exceeded the interference as defined by Sindy. Value may be falsely increased. Suggest recollection if clinically indicated. Chloride 90(L) 98 - 107 mmol/L 06/03/2025 6:18 AM EDT [facility] CO2 20 20 - 31 mmol/L 06/03/2025 6:18 AM EDT [facility] Anion Gap 11 9 - 16 mmol/L 06/03/2025 6:18 AM EDT [facility] Glucose 107(H) 74 - 99 mg/dL 06/03/2025 6:18 AM EDT [facility] BUN 13 8 - 23 mg/dL 06/03/2025 6:18 AM EDT [facility] Creatinine 0.7 0.7 - 1.2 mg/dL 06/03/2025 6:18 AM EDT [facility] Est, Glom Filt Rate >90 >60 mL/min/1. 73m2 06/03/2025 6:18 AM EDT [facility] Comment: These results are not intended for use in patients <18 years of age. eGFR results are calculated without a race factor using the 2020 CKD-EPI equation. Careful clinical correlation is recommended, particularly when comparing to results calculated using previous equations. The CKD-EPI equation is less accurate in patients with extremes of muscle mass, extra-renal metabolism of creatine, excessive creatine ingestion, or following therapy that affects renal tubular secretion. Calcium 9.0 8.6 - 10.4 mg/dL 06/03/2025 6:18 AM EDT [facility] Blood BLOOD SPECIMEN / Unknown 06/03/2025 6:18 AM EDT 06/03/2025 6:46 AM EDT Adore Cueto [employer] CHEMISTRY ORDERABLES Fin al Result [facility] [address] [place] [address], [facility] [phone] * (ABNORMAL) POC Glucose Fingerstick (06/02/2025 7:56 PM EDT) POC Glucose 127(H) 75 - 110 mg/dL 06/02/2025 7:56 PM EDT [facility] 06/02/2025 7:56 PM EDT 06/02/2025 8:03 PM EDT Jermaine Pina DO POINT OF CARE TEST ORDERABLES Final Result [facility] [address] [place] [address], [facility] [phone] * POC Glucose Fingerstick (06/02/2025 4:13 PM EDT) Pathologist [facility] POC Glucose 109 75 - 110 mg/dL 06/02/2025 4:13 PM EDT [facility] 06/02/2025 4:13 PM EDT 06/02/2025 4:23 PM EDT Jermaine Pina DO POINT OF CARE TEST ORDERABLES Final Result Performing Organization Address [facility]/[place] [address], [facility] [phone] * POC Glucose Fingerstick (06/02/2025 1:48 PM EDT) [facility] POC Glucose 110 75 - 110 mg/dL 06/02/2025 1:48 PM EDT [facility] 06/02/2025 1:48 PM EDT 06/02/2025 1:55 PM EDT Jermaine Pina DO POINT OF CARE TEST ORDERABLES Final Result Performing Organization Address [facility] [place] [address], [facility] [phone] * (ABNORMAL) CBC with Auto Differential (06/02/2025 1:08 PM EDT) Pathologist [facility] WBC 7.8 3.5 - 11.3 k/uL 06/02/2025 1:08 PM EDT [facility] RBC 4.01(L) 4.21 - 5.77 m/uL 06/02/2025 1:08 PM EDT [facility] Hemoglobin 12.3(L) 13.0 - 17.0 g/dL 06/02/2025 1:08 PM EDT [facility] Hematocrit 36.5(L) 40.7 - 50.3 % 06/02/2025 1:08 PM EDT [facility] MCV 91.0 82.6 - 102.9 fL 06/02/2025 1:08 PM EDT [facility] MCH 30.7 25.2 - 33.5 pg 06/02/2025 1:08 PM EDT [facility] MCHC 33.7 28.4 - 34.8 g/dL 06/02/2025 1:08 PM EDT [facility] RDW 13.2 11.8 - 14.4 % 06/02/2025 1:08 PM EDT [facility] Platelets 147 138 - 453 k/uL 06/02/2025 1:08 PM EDT [facility] MPV 11.3 8.1 - 13.5 fL 06/02/2025 1:08 PM EDT [facility] NRBC Automated 0.0 0.0 per 100 WBC 06/02/2025 1:08 PM EDT [facility] Neutrophils % 62 36 - 65 % 06/02/2025 1:08 PM EDT [facility] Lymphocytes % 25 24 - 43 % 06/02/2025 1:08 PM EDT [facility] Monocytes % 11 3 - 12 % 06/02/2025 1:08 PM EDT [facility] Eosinophils % 1 1 - 4 % 06/02/2025 1:08 PM EDT [facility] Basophils % 1 0 - 2 % 06/02/2025 1:08 PM EDT [facility] Immature Granulocytes % 0 0 % 06/02/2025 1:08 PM EDT [facility] Neutrophils Absolute 4.88 1.50 - 8.10 k/uL 06/02/2025 1:08 PM EDT [facility] Lymphocytes Absolute 1.93 1.10 - 3.70 k/uL 06/02/2025 1:08 PM EDT [facility] Monocytes Absolute 0.84 0.10 - 1.20 k/uL 06/02/2025 1:08 PM EDT [facility] Eosinophils Absolute 0.08 0.00 - 0.44 k/uL 06/02/2025 1:08 PM EDT [facility] Basophils Absolute 0.06 0.00 - 0.20 k/uL 06/02/2025 1:08 PM EDT [facility] Immature Granulocytes Absolute <0.03 0.00 - 0.30 k/uL 06/02/2025 1:08 PM EDT [facility] Blood BLOOD SPECIMEN / Unknown 06/02/2025 1:08 PM EDT 06/02/2025 1:08 PM EDT us Leelee Easley RETAIL BUYER - DIRECTOR OF [employer] SERVICES HEMATOLOGY ORDERA BLES Final Result [facility] [address] [id number], [facility] [phone] * (ABNORMAL) Basic Metabolic Panel w/ Reflex to MG (06/02/2025 1:08 PM EDT) Sodium 129(L) 136 - 145 mmol/L 06/02/2025 1:08 PM EDT [facility] Potassium 4.7 3.7 - 5.3 mmol/L 06/02/2025 1:08 PM EDT [facility] Chloride 96(L) 98 - 107 mmol/L 06/02/2025 1:08 PM EDT [facility] CO2 20 20 - 31 mmol/L 06/02/2025 1:08 PM EDT [facility] Anion Gap 13 9 - 16 mmol/L 06/02/2025 1:08 PM EDT [facility] Glucose 117(H) 74 - 99 mg/dL 06/02/2025 1:08 PM EDT [facility] BUN 16 8 - 23 mg/dL 06/02/2025 1:08 PM EDT [facility] Creatinine 0.8 0.7 - 1.2 mg/dL 06/02/2025 1:08 PM EDT [facility] Est, Glom Filt Rate 88 >60 mL/min/1. 73m2 06/02/2025 1:08 PM EDT [facility] Comment: These results are not intended for use in patients <18 years of age. eGFR results are calculated without a race factor using the 2020 CKD-EPI equation. Careful clinical correlation is recommended, particularly when comparing to results calculated using previous equations. The CKD-EPI equation is less accurate in patients with extremes of muscle mass, extra-renal metabolism of creatine, excessive creatine ingestion, or following therapy that affects renal tubular secretion. Calcium 9.1 8.6 - 10.4 mg/dL 06/02/2025 1:08 PM EDT [facility] Blood BLOOD SPECIMEN / Unknown 06/02/2025 1:08 PM EDT 06/02/2025 1:08 PM EDT Leelee Easley RETAIL BUYER [facility] CHEMISTRY ORDERAB LES Final Result Performing Organization Address [facility] Co de Phone Number [facility] [address] [place] [address] * (ABNORMAL) Protime-INR (06/02/2025 1:08 PM EDT) Protime 22.2(H) 11.7 - 14.9 sec 06/02/2025 1:08 PM EDT [facility] INR 1.9 06/02/2025 1:08 PM EDT [facility] Chalkboard Comment: Therapeutic Range: Moderate Anticoagulant Intensity: INR = 2.0-3.0 High Anticoagulant Intensity: INR = 2.5-3.5 06/02/2025 1:08 PM EDT 06/02/2025 1:08 PM EDT Leelee Easley APRN [facility] HEMATOLOGY ORDERA BLES Final Result Performing Organization Address [facility] de Phone Number [facility] [address] [place] [address], [facility] [phone] documented in this encounter Visit Diagnoses Diagnosis Fracture of nasal bones, initial encounter for closed fracture- Primary Hyponatremia Hyposmolality and/or hyponatremia Epistaxis Atrial fibrillation (HCC) Atrial fibrillation Essential hypertension Unspecified essential hypertension Benign prostatic hyperplasia Unspecified hyperplasia of prostate without urinary obstruction and other lower urinary tract symptoms (LUTS) Diabetes mellitus (HCC) Type II or unspecified type diabetes mellitus without mention of complication, not stated as uncontrolled Hypothyroidism (acquired) Unspecified hypothyroidism Secondary hypercoagulable state Anticoagulated on Coumadin Encounter for therapeutic drug monitoring Hyponatremia Hyposmolality and/or hyponatremia Toxic metabolic encephalopathy 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 History of hypothyroidism Personal history of other endocrine, metabolic, and immunity disorders documented in this encounter Admitting Diagnoses Diagnosis Fracture of nasal bones, initial encounter for closed fracture Epistaxis documented in this encounter Administered Medications Inactive Administered Medications - up to 3 most recent administrations Medication Order MAR Action Action Date Dose Rate Site 0.9 % sodium chloride infusion IntraVENous, at 5-250 mL/hr, PRN, if patient receiving piggyback infusions and maintenance fluids are not ordered, Starting on Tue06/02/25 at 1205, For piggyback infusion, administer at same rate as piggyback for a total of 25 mL. Enter 25 mL into dose field and piggyback rate into rate field of order. If piggyback is infusing at a rate less than 100 mL/hr, enter 25 mL into dose field and 100 mL/hr into rate field of order. 3% sodium chloride (HYPERTONIC) IV infusion 40 mL/hr, IntraVENous, CONTINUOUS, Starting on Tue06/03/25 at 2100, Until Tue06/03/25 at 225, For rates greater than 100 mL/hr, CENTRAL LINE/PICC LINE administration required. Goal serum Na+ = 120 to 124 Notify physician and HOLD infusion if sodium increases more than 4 mEq/L (4 mmol/L) over 2 hours OR 8-10 mEq/L (8-10 mmol/L) over 24 hours OR if serum Na+ goal is exceeded. New Bag 06/03/2025 9:40 PM EDT 40 mL/hr 40 mL/hr acetaminophen (TYLENOL) suppository 650 mg 650 mg, Rectal, EVERY 6 HOURS PRN, Starting on Tue06/02/25 at 1205, Until Tue06/05/25 at 2118, Pain Mild (1-3) OR per patient request for pain score (4-10), Fever, For temp greater than 100.4 F (38 C), Administer if oral route cannot be used. acetaminophen (TYLENOL) tablet 650 mg 650 mg, Oral, EVERY 6 HOURS PRN, Starting on Tue06/02/25 at 1205, Until Tue06/05/25 at 2118, Pain Mild (1-3) OR per patient request for pain score (4-10), Fever, For temp greater than 100.4 F (38 C), Maximum dose of acetaminophen is 4000 mg from all sources in 24 hours. Given 06/02/2025 12:39 PM EDT 650 mg atenolol (TENORMIN) tablet 25 mg 25 mg, Oral, 2 TIMES DAILY, First dose (after last modification) on Tue06/02/25 at 2100, Until Discontinued, Hold for heart rate <60b/m Sbp <110mmHg Given 06/05/2025 8:37 AM EDT 25 mg Given 06/04/2025 11:09 AM EDT 25 mg Given 06/03/2025 9:30 AM EDT 25 mg cephALEXin (KEFLEX) capsule 500 mg 500 mg, Oral, EVERY 8 HOURS SCHEDULED (3 times per day), First dose on 06/02/25 at 1415, Until Discontinued, Antimicrobial Indications: Other, Other Abx Indication: nasal packing Given 06/05/2025 5:42 AM EDT 500 mg Given 06/04/2025 9:53 PM EDT 500 mg Given 06/04/2025 2:32 PM EDT 500 mg dextrose 10 % infusion IntraVENous, at 100 mL/hr, CONTINUOUS PRN, if blood glucose remains LESS THAN 70 mg/dL after 2 dextrose 10% intravenous boluses or administration of glucagon, Starting on Tue06/02/25 at 1205, If blood glucose fails to stabilize after 2 dextrose 10% intravenous boluses or glucagon administration, start dextrose 10% infusion at 100 mL/hour and repeat blood glucose at 30 and 60 minutes. If blood glucose is GREATER THAN 70 mg/dL after 60 minutes, discontinue dextrose 10% infusion. dextrose bolus 10% 125 mL 125 mL, IntraVENous, at 937.5 mL/hr, Administer over 8 Minutes, PRN, Other, Blood glucose 40 - 69 mg/dL and patient NOT ALERT or NPO, Starting on 06/02/25 at 1205, Repeat blood glucose in 15 minutes. If blood glucose remains LESS THAN 70 mg/dL, repeat treatment and recheck blood glucose in 15 minutes x 2. If using glycemic management system, dose as instructed per system. If blood glucose remains LESS THAN 70 mg/dL after 2 intravenous boluses start dextrose 10% at 100 mL/hour and notify provider. dextrose bolus 10% 250 mL 250 mL, IntraVENous, at 937.5 mL/hr, Administer over 16 Minutes, PRN, Other, Blood glucose LESS THAN 40 mg/dL and patient NOT ALERT or NPO, Starting on Tue06/02/25 at 1205, Repeat blood glucose in 15 minutes. If blood glucose remains LESS THAN 70 mg/dL, repeat treatment and recheck blood glucose in 15 minutes x 2. If using glycemic management system, dose as instructed per system. If blood glucose remains LESS THAN 70 mg/dL after 2 intravenous boluses start dextrose 10% at 100 mL/hour and notify provider. finasteride (PROSCAR) tablet 5 mg 5 mg, Oral, DAILY, First dose on Tue06/02/25 at 1415, Until Discontinued, Women should not handle crushed or broken finasteride tablets when they are or may potentially be , due to potential risk to the fetus. Given 06/05/2025 10: 35 AM EDT 5 mg Given 06/04/2025 8:48 AM EDT 5 mg Given 06/03/2025 9:31 AM EDT 5 mg gabapentin (NEURONTIN) capsule 300 mg 300 mg, Oral, DAILY, First dose on Tue06/02/25 at 1415, Until Discontinued Given 06/05/2025 8:38 AM EDT 300 mg Given 06/04/2025 8:49 AM EDT 300 mg Given 06/03/2025 9:31 AM EDT 300 mg glipiZIDE (GLUCOTROL) tablet 5 mg 5 mg, Oral, DAILY BEFORE BREAKFAST, First dose on Tue06/03/25 at 0700, Until Discontinued, Substituted for glimepiride (AMARYL). Given 06/03/2025 9:31 AM EDT 5 mg glucagon injection 1 mg 1 mg, SubCUTAneous, PRN, Starting on Tue06/02/25 at 1205, Until Tue06/05/25 at 2118, Low blood sugar, Blood glucose LESS THAN 70 mg/dL and patient NOT ALERT or NPO and does not have IV access., After administration, attempt intravenous access and start dextrose 10% at 100 mL/hr. Repeat blood glucose in 15 minutes x 2 and notify provider. Reconstitute powder for injection by adding 1 mL of tobacco farmworker-supplied sterile diluent or sterile water for injection to a vial containing 1 mg of the drug, to provide solutions containing 1 mg/mL. Shake vial gently to dissolve. glucose chewable tablet 16 g 16 g (4 tablet), Oral, PRN, Starting on Tue06/02/25 at 1205, Until Tue06/05/25 at 2118, Low blood sugar, If blood glucose is LESS THAN 70 mg/dL and patient is alert and tolerating oral. Give 4 tablets (16g) Repeat blood glucose in 15 minutes. If blood glucose is LESS THAN 70 mg/dL, repeat treatment and recheck blood glucose in 15 minutes x 2. If blood glucose remains LESS THAN 70 mg/dL, notify provider. insulin lispro (HUMALOG,ADMELOG) injection vial 0-4 Units 0-4 Units, SubCUTAneous, 4 TIMES DAILY BEFORE MEALS & NIGHTLY, First dose on Tue06/02/25 at 1230, Until Discontinued, Corrective Low Dose Algorithm Glucose: Dose: 70-179 No Insulin 180-249 1 Unit 250-299 2 Units 300-349 3 Units Over 349 4 Units and notify physician Administer as soon as possible within 60 minutes of last blood glucose check levothyroxine (SYNTHROID) tablet 25 mcg 25 mcg, Oral, DAILY, First dose on Tue06/02/25 at 1415, Until Discontinued, Tube feeding (TF) interaction, obtain physician order to manage, recommend holding TF for 30 minutes before and after dose. Given 06/05/2025 8:39 AM EDT 25 mcg Given 06/04/2025 6:30 AM EDT 25 mcg Given 06/03/2025 6:36 AM EDT 25 mcg lisinopril (PRINIVIL;ZESTRIL) tablet 10 mg 10 mg, Oral, DAILY, First dose on Tue06/03/25 at 1145, Until Discontinued Given 06/04/2025 9:46 AM EDT 10 mg Given 06/03/2025 1:09 PM EDT 10 mg LORazepam (ATIVAN) injection 1 mg 1 mg, IntraVENous, EVERY 4 HOURS PRN, Starting on Tue06/03/25 at 1640, Until Tue06/04/25 at 1257, Agitation, Immediately prior to intravenous use, lorazepam Injection must be diluted with at least an equal volume of compatible solution (NS or D5W). Given 06/03/2025 4:48 PM EDT 1 mg magnesium sulfate 1000 mg in dextrose 5% 100 mL IVPB 1,000 mg, IntraVENous, at 100 mL/hr, Administer over 1 Hours, PRN, Other, Per IV Magnesium Replacement Protocol, Starting on Tue06/02/25 at 1205, Mg Lab Replacement Action 1.4-1.6 1 gram IVPB x 2 doses (2 gram Total) 1.0-1.3 1 gram IVPB x 4 doses (4 gram Total) <1.0 CALL PHYSICIAN and 1 gram IVPB x 4 doses (4 gram Total) Infuse at 1 gram/hr Repeat Mag level next AM Protocol not for use in Patients with CrCl<30ml/min ondansetron (ZOFRAN) injection 4 mg 4 mg, IntraVENous, EVERY 6 HOURS PRN, Starting on Tue06/02/25 at 1205, Until Tue06/05/25 at 2118, Nausea, Vomiting, Administer if oral route cannot be used. Given 06/04/2025 7:50 AM EDT 4 mg Given 06/03/2025 9:40 PM EDT 4 mg ondansetron (ZOFRAN-ODT) disintegrating tablet 4 mg 4 mg, Oral, EVERY 8 HOURS PRN, Starting on Tue06/02/25 at 1205, Until Tue06/05/25 at 2118, Nausea, Vomiting pantoprazole (PROTONIX) tablet 40 mg 40 mg, Oral, DAILY BEFORE BREAKFAST, First dose on Tue06/03/25 at 0700, Until Discontinued, Do not crush or break. Substituted for Omeprazole (PRILOSEC). Given 06/05/2025 8:40 AM EDT 40 mg Given 06/04/2025 6:30 AM EDT 40 mg Given 06/03/2025 6:36 AM EDT 40 mg polyethylene glycol (GLYCOLAX) packet 17 g 17 g, Oral, DAILY PRN, Starting on Tue06/02/25 at 1205, Until Tue06/05/25 at 2118, Constipation, First line therapy for constipation potassium bicarb-citric acid (EFFER-K) effervescent tablet 40 mEq 40 mEq, Oral, PRN, Starting on Tue06/02/25 at 1205, Until Tue06/05/25 at 2118, Per Potassium Replacement Protocol, Administer as alternative if patient unable to tolerate oral tablet. K Lab Replacement Action 3.1 to 3.5 40 mEq ORAL x 1 Under 3.1 Refer to IV replacement protocol Recheck K level in AM. Protocol not for use in patients with CrCl lessthan 30 mL/min. Do not chew or crush. Dissolve flavored tablets completely in 3 to 4 ounces of cold water; unflavored tablets may be dissolved in 3 to 4 ounces of cold juice. Patient to sip slowly over a 5 to 10 minute period. May further dilute if GI adverse effects occur. potassium chloride (KLOR-CON M) extended release tablet 40 mEq 40 mEq, Oral, PRN, Starting on Tue06/02/25 at 1205, Until Tue06/05/25 at 2118, Potassium Replacement, May give alternative linked oral order (ordered as effervescent, packet, or liquid solution) if patient unable to tolerate tablet. K Lab Replacement Action 3.1 to 3.5 40 mEq ORAL x 1 Under 3.1 Refer to IV replacement protocol Recheck K level in AM. Protocol not for use in patients with CrCl less than 30 mL/min. Do not crush, chew, or suck on tablet. Tablet may also be broken in half and each half swallowed separately. potassium chloride 10 mEq/100 mL IVPB (Peripheral Line) 10 mEq, IntraVENous, PRN, Starting on Tue06/02/25 at 1205, Until Tue06/05/25 at 2118, at 100 mL/hr, Potassium Replacement, K Lab Replacement Action 2.7-3.0 10 mEq IVPB x 6 doses (60 mEq Total) < 2.7 CALL PHYSICIAN and 10 mEq IVPB x 6 doses (60 mEq Total) Infuse at 10 mEq/hr Repeat Potassium lab 1 hour after final administration. Not for use in patients with CrCl less than 30 mL/min. pravastatin (PRAVACHOL) tablet 40 mg 40 mg, Oral, DAILY, First dose on Tue06/02/25 at 1415, Until Discontinued Given 06/05/2025 8:42 AM EDT 40 mg Given 06/04/2025 8:51 AM EDT 40 mg Given 06/03/2025 9:31 AM EDT 40 mg sodium chloride (OCEAN) 0.65 % nasal spray 2 spray 2 spray, Each Nostril, EVERY 4 HOURS, First dose (after last modification) on Tue06/02/25 at 1415, Until Discontinued Given 06/05/2025 10:36 AM EDT 2 s prays Given 06/05/2025 5:42 AM EDT 2 sprays Given 06/05/2025 2:06 AM EDT 2 sprays sodium chloride flush 0.9 % injection 10 mL 10 mL, IntraVENous, PRN, Starting on Tue06/02/25 at 1205, Until Tue06/05/25 at 2118, Line Care, After every IV line use sodium chloride flush 0.9 % injection 5-40 mL 5-40 mL, IntraVENous, EVERY 12 HOURS SCHEDULED (2 times per day), First dose on Tue06/02/25 at 2100, Until Discontinued, For Line Patency: Peripheral IV = 5 mL; Midline or Central Line = 10 mL/lumen. If following IV push medication, administer flush at same rate as the IV push. Flush volume is determined by type of infusion therapy being given. For non-viscous solutions use: Peripheral IV = 5 mL Midline or Central Line = 10 mL/lumen For viscous solutions (i.e. blood components, parenteral nutrition, contrast media, or after obtaining blood sample) use: Peripheral IV = 10 mL Midline or Central Line = 20 mL/lumen Given 06/05/2025 8:41 AM EDT 5 mLs Given 06/04/2025 8:15 PM EDT 10 mLs Given 06/04/2025 8:53 AM EDT 10 mLs sodium chloride tablet 1 g 1 g, Oral, 3 TIMES DAILY, First dose on Tue06/02/25 at 1445, Until Discontinued Given 06/03/2025 9:32 AM EDT 1 g Given 06/02/2025 9:43 PM EDT 1 g Given 06/02/2025 3:23 PM EDT 1 g sodium chloride tablet 2 g 2 g, Oral, 3 TIMES DAILY, First dose (after last modification) on Tue06/03/25 at 1400, Until Discontinued Given 06/05/2025 8:41 AM EDT 2 g Given 06/04/2025 8:21 PM EDT 2 g Given 06/04/2025 2:33 PM EDT 2 g tamsulosin (FLOMAX) capsule 0.4 mg 0.4 mg, Oral, DAILY, First dose on Tue06/02/25 at 1415, Until Discontinued, Do not crush or break. Give 30 minutes after a full meal to limit risk of orthostatic hypotension/falls. Given 06/05/2025 8:41 AM EDT 0.4 mg Given 06/04/2025 9:47 AM EDT 0.4 mg Given 06/03/2025 9:32 AM EDT 0.4 mg tolvaptan (SAMSCA) pre-split tablet 7.5 mg 7.5 mg, Oral, ONCE, 1 dose, On Tue06/04/25 at 1230, Has the patient failed fluid restriction? Yes, Is the patient's serum sodium less than 125 mEq/L and plasma osmolality less than 285 mOsm/kg OR less marked hyponatremia that is symptomatic and resistant to fluid restriction? Yes, Does patient have hypovolemic hypotonic hyponatremia OR signs of dehydration? No, Is the patient anuric? No Given 06/04/2025 2:33 PM EDT 7.5 mg tolvaptan (SAMSCA) pre-split tablet 7.5 mg 7.5 mg, Oral, ONCE, 1 dose, On Tue06/05/25 at 1115, Has the patient failed fluid restriction? Yes, Is the patient's serum sodium less than 125 mEq/L and plasma osmolality less than 285 mOsm/kg OR less marked hyponatremia that is symptomatic and resistant to fluid restriction? Yes, Does patient have hypovolemic hypotonic hyponatremia OR signs of dehydration? No, Is the patient anuric? No Given 06/05/2025 12:04 PM EDT 7.5 mg urea (URE-NA) packet 15 g 15 g, Oral, DAILY, First dose on Tue06/06/25 at 0900, Until Discontinued, Mix each 15 g dose with 3 to 4 ounces of water or juice. warfarin (COUMADIN) tablet 2.5 mg 2.5 mg, Oral, ONCE Warfarin, 1 dose, On Tue06/02/25 at 1800, Indication of Use: A Fib/A Flutter, What is the patient's goal INR? 2.0 - 3.0, Review INR prior to administration. Hazardous med- See facility policy for handling/disposal Given 06/02/2025 5:55 PM EDT 2.5 mg warfarin (COUMADIN) tablet 5 mg 5 mg, Oral, ONCE Warfarin, 1 dose, On Tue06/04/25 at 1800, Indication of Use: A Fib/A Flutter, What is the patient's goal INR? 2.0 - 3.0, Review INR prior to administration. Hazardous med- See facility policy for handling/disposal Given 06/04/2025 5:52 PM EDT 5 mg warfarin placeholder: dosing by pharmacy Please contact the pharmacy if a dose is not entered by 1600. Review INR prior to warfarin administration. documented in this encounter Active and Recently Administered Medications Times are shown in EDT. Scheduled Medication Order 06/03/2025 06/04/2025 06/05/2025 atenolol (TENORMIN) tablet 25 mg 25 mg, Oral, 2 TIMES DAILY, First dose (after last modification) on 06/02/25 at 2100, Until Discontinued, Hold for heart rate <60b/m Sbp <110mmHg 0930 (Given - Provider: Pat Nieves RN)210 (Not Given - Provider: Adia Blandon, ERIN - Reason: Patient/family refused - Comment: Pt unable to follow commands and swallow) 1109 (Given - Provider: Flip Dubose RN - Comment: 2 anti hypentive meds at once)2012 (Not Given - Provider: Nancy Fox RN - Reason: Contraindicated) 0837 (Given - Provider: Flip Dubose RN) cephALEXin (KEFLEX) capsule 500 mg 500 mg, Oral, EVERY 8 HOURS SCHEDULED (3 times per day), First dose on 06/02/25 at 1415, Until Discontinued, Antimicrobial Indications: Other, Other Abx Indication: nasal packing 0621 (Given - Provider: Kelly Huerta RN)1309 (Given - Provider: Pat Nieves RN)210 (Not Given - Provider: Adia Blandon RN - Reason: Other - Comment: Pt unable to follow commands, can not take sip of water) 0635 (Given - Provider: Monico Kaiser RN)1432 (Given - Provider: Flip Dubose RN)2153 (Given - Provider: Nancy Fox, ERIN) 0542 (Given - Provider: Nancy Fox RN)1527 (Not Given - Provider: Flip Dubose RN - Reason: Patient/family refused) finasteride (PROSCAR) tablet 5 mg 5 mg, Oral, DAILY, First dose on 06/02/25 at 1415, Until Discontinued, Women should not handle crushed or broken finasteride tablets when they are or may potentially be , due to potential risk to the fetus. 0931 (Given - Provider: Pat Nieves RN) 0848 (Given - Provider: Flip Dubose RN) 1035 (Given - Provider: Flip Dubose RN) gabapentin (NEURONTIN) capsule 300 mg 300 mg, Oral, DAILY, First dose on 06/02/25 at 1415, Until Discontinued 0931 (Given - Provider: Pat Nieves RN) 0849 (Given - Provider: Flip Dubose RN) 0838 (Given - Provider: Flip Dubose RN) glipiZIDE (GLUCOTROL) tablet 5 mg 5 mg, Oral, DAILY BEFORE BREAKFAST, First dose on Tue06/03/25 at 0700, Until Discontinued, Substituted for glimepiride (AMARYL). 0931 (Given - Provider: Pat Nieves RN) 0628 (Not Given - Provider: Monico Kaiser RN - Reason: Other - Comment: do not give per Dr. Vaughn d/t blood sugar 76) 07 (Not Given - Provider: Flip Dubose RN - Reason: Other - Comment: marginal blood sugar) insulin lispro (HUMALOG,ADMELOG) injection vial 0-4 Units 0-4 Units, SubCUTAneous, 4 TIMES DAILY BEFORE MEALS & NIGHTLY, First dose on Tue06/02/25 at 1230, Until Discontinued, Corrective Low Dose Algorithm Glucose: Dose: 70-179 No Insulin 180-249 1 Unit 250-299 2 Units 300-349 3 Units Over 349 4 Units and notify physician Administer as soon as possible within 60 minutes of last blood glucose check 09 (Not Given - Provider: Pat Nieves RN - Reason: Order parameters not met)1231 (Not Given - Provider: Pat Nieves RN - Reason: Order parameters not met)1812 (Not Given - Provider: Pat Nieves RN - Reason: Order parameters not met)2111 (Not Given - Provider: Adia Blandon RN - Reason: Order parameters not met) 0620 (Not Given - Provider: Monico Kaiser RN - Reason: Order parameters not met - Comment: bs 76)1007 (Not Given - Provider: Flip Dubose RN - Reason: Order parameters not met)1611 (Not Given - Provider: Flip Dubose RN - Reason: Order parameters not met - Comment: order parameters not met)2012 (Not Given - Provider: Nancy Fox RN - Reason: Order parameters not met) 0700 (Not Given - Provider: Flip Dubose RN - Reason: Order parameters not met)1130 (Not Given - Provider: Flip Dubose RN - Reason: Order parameters not met)1700 (Due) levothyroxine (SYNTHROID) tablet 25 mcg 25 mcg, Oral, DAILY, First dose on Tue06/02/25 at 1415, Until Discontinued, Tube feeding (TF) interaction, obtain physician order to manage, recommend holding TF for 30 minutes before and after dose. 0636 (Given - Provider: Jaxon Camejo RN) 0630 (Given - Provider: Monico Kaiser RN) 0839 (Given - Provider: Flip Dubose RN) lisinopril (PRINIVIL;ZESTRIL) tablet 10 mg 10 mg, Oral, DAILY, First dose on Tue06/03/25 at 1145, Until Discontinued 1309 (Given - Provider: Pat Nieves RN) 0946 (Given - Provider: Flip Dubose RN) 1000 (Not Given - Provider: Flip Dubose RN - Reason: Order parameters not met - Comment: bp marginal) pantoprazole (PROTONIX) tablet 40 mg 40 mg, Oral, DAILY BEFORE BREAKFAST, First dose on Tue06/03/25 at 0700, Until Discontinued, Do not crush or break. Substituted for Omeprazole (PRILOSEC). 0636 (Given - Provider: Jaxon Camejo RN) 0630 (Given - Provider: Monico Kaiser RN) 0840 (Given - Provider: Flip Dubose, ERIN) pravastatin (PRAVACHOL) tablet 40 mg 40 mg, Oral, DAILY, First dose on Tue06/02/25 at 1415, Until Discontinued 0931 (Given - Provider: Pat Nieves RN) 0851 (Given - Provider: Flip Dubose RN) 0842 (Given - Provider: Flip Dubose RN) sodium chloride (OCEAN) 0.65 % nasal spray 2 spray 2 spray, Each Nostril, EVERY 4 HOURS, First dose (after last modification) on Tue06/02/25 at 1415, Until Discontinued 0204 (Not Given - Provider: Jaxon Camejo RN - Reason: Patient/family refused)0540 (Not Given - Provider: Jaxon Camejo RN - Reason: Patient/family refused)0932 (Given - Provider: Pat Nieves RN)1415 (Not Given - Provider: Pat Nieves RN - Reason: Patient/family refused)1841 (Not Given - Provider: Pat Nieves RN - Reason: Patient/family refused)211 (Given - Provider: Adia Blandon RN) 0240 (Given - Provider: Monico Kaiser, RN)0630 (Given - Provider: Monico Kaiser RN)0853 (Given - Provider: Flip Dubose RN)1432 (Given - Provider: Flip Dubose RN)1753 (Given - Provider: Flip Dubose RN)202 (Given - Provider: Nancy Fox, RN) 0206 (Given - Provider: Nancy Fox RN)0542 (Given - Provider: Nancy Fox RN)1036 (Given - Provider: Flip Dubose RN)1528 (Not Given - Provider: Flip Dubose RN - Reason: Patient/family refused)181 (Due) sodium chloride flush 0.9 % injection 5-40 mL 5-40 mL, IntraVENous, EVERY 12 HOURS SCHEDULED (2 times per day), First dose on 06/02/25 at 2100, Until Discontinued, For Line Patency: Peripheral IV = 5 mL; Midline or Central Line = 10 mL/lumen. If following IV push medication, administer flush at same rate as the IV push. Flush volume is determined by type of infusion therapy being given. For non-viscous solutions use: Peripheral IV = 5 mL Midline or Central Line = 10 mL/lumen For viscous solutions (i.e. blood components, parenteral nutrition, contrast media, or after obtaining blood sample) use: Peripheral IV = 10 mL Midline or Central Line = 20 mL/lumen 0932 (Given - Provider: Pat Nieves RN)215 (Given - Provider: Adia Blandon, ERIN) 0853 (Given - Provider: Flip Dubose RN)2015 (Given - Provider: Nancy Fox RN) 0841 (Given - Provider: Flip Dubose RN) sodium chloride tablet 1 g (CANCELED) 1 g, Oral, 3 TIMES DAILY, First dose on 06/02/25 at 1445, Until Discontinued 0932 (Given - Provider: Pat Nieves RN) sodium chloride tablet 2 g (CANCELED) 2 g, Oral, 3 TIMES DAILY, First dose (after last modification) on Tue06/03/25 at 1400, Until Discontinued 1310 (Given - Provider: Pat Nieves RN)2100 (Due) 0852 (Given - Provider: Flip Dubose RN)1433 (Given - Provider: Flip Dubose RN)202 (Given - Provider: Nancy Fox RN) 0841 (Given - Provider: Flip Dubose RN) tamsulosin (FLOMAX) capsule 0.4 mg 0.4 mg, Oral, DAILY, First dose on Tue06/02/25 at 1415, Until Discontinued, Do not crush or break. Give 30 minutes after a full meal to limit risk of orthostatic hypotension/falls. 0932 (Given - Provider: Pat Nieves RN) 0947 (Given - Provider: Flip Dubose RN) 0841 (Given - Provider: Flip Dubose RN) tolvaptan (SAMSCA) pre-split tablet 7.5 mg (COMPLETED) 7.5 mg, Oral, ONCE, 1 dose, On Tue06/04/25 at 1230, Has the patient failed fluid restriction? Yes, Is the patient's serum sodium less than 125 mEq/L and plasma osmolality less than 285 mOsm/kg OR less marked hyponatremia that is symptomatic and resistant to fluid restriction? Yes, Does patient have hypovolemic hypotonic hyponatremia OR signs of dehydration? No, Is the patient anuric? No 1433 (Given - Provider: Flip Dubose RN - Comment: med not here) tolvaptan (SAMSCA) pre-split tablet 7.5 mg (COMPLETED) 7.5 mg, Oral, ONCE, 1 dose, On Tue06/05/25 at 1115, Has the patient failed fluid restriction? Yes, Is the patient's serum sodium less than 125 mEq/L and plasma osmolality less than 285 mOsm/kg OR less marked hyponatremia that is symptomatic and resistant to fluid restriction? Yes, Does patient have hypovolemic hypotonic hyponatremia OR signs of dehydration? No, Is the patient anuric? No 1204 (Given - Provider: Flip Dubose RN) urea (URE-NA) packet 15 g 15 g, Oral, DAILY, First dose on [place] 06/06/25 at 0900, Until Discontinued, Mix each 15 g dose with 3 to 4 ounces of water or juice. warfarin (COUMADIN) tablet 5 mg (COMPLETED) 5 mg, Oral, ONCE Warfarin, 1 dose, On Tue06/04/25 at 1800, Indication of Use: A Fib/A Flutter, What is the patient's goal INR? 2.0 - 3.0, Review INR prior to administration. Hazardous med- See facility policy for handling/disposal 1752 (Given - Provider: Flip Dubose RN) warfarin (COUMADIN) tablet 5 mg 5 mg, Oral, ONCE Warfarin, 1 dose, On Tue06/05/25 at 1800, Indication of Use: A Fib/A Flutter, What is the patient's goal INR? 2.0 - 3.0, Review INR prior to administration. Hazardous med- See facility policy for handling/disposal 1800 (Due) warfarin placeholder: dosing by pharmacy Please contact the pharmacy if a dose is not entered by 1600. Review INR prior to warfarin administration. Continuous Medication Order 06/03/2025 06/04/2025 06/05/2025 3% sodium chloride (HYPERTONIC) IV infusion () 40 mL/hr, IntraVENous, CONTINUOUS, Starting on Tue06/03/25 at 2100, Until Tue06/03/25 at 2259, For rates greater than 100 mL/hr, CENTRAL LINE/PICC LINE administration required. Goal serum Na+ = 120 to 124 Notify physician and HOLD infusion if sodium increases more than 4 mEq/L (4 mmol/L) over 2 hours OR 8-10 mEq/L (8-10 mmol/L) over 24 hours OR if serum Na+ goal is exceeded. 2140 (New Bag - Provider: Adia Blandon, ERIN) 0248 (Stopped - Provider: Monico Kaiser RN) PRN Medication Order 06/03/2025 06/04/2025 06/05/2025 0.9 % sodium chloride infusion IntraVENous, at 5-250 mL/hr, PRN, if patient receiving piggyback infusions and maintenance fluids are not ordered, Starting on Tue06/02/25 at 1205, For piggyback infusion, administer at same rate as piggyback for a total of 25 mL. Enter 25 mL into dose field and piggyback rate into rate field of order. If piggyback is infusing at a rate less than 100 mL/hr, enter 25 mL into dose field and 100 mL/hr into rate field of order. acetaminophen (TYLENOL) suppository 650 mg(Linked Group 1) 650 mg, Rectal, EVERY 6 HOURS PRN, Starting on Tue06/02/25 at 1205, Until Tue06/05/25 at 2118, Pain Mild (1-3) OR per patient request for pain score (4-10), Fever, For temp greater than 100.4 F (38 C), Administer if oral route cannot be used. acetaminophen (TYLENOL) tablet 650 mg(Linked Group 1) 650 mg, Oral, EVERY 6 HOURS PRN, Starting on Tue06/02/25 at 1205, Until Tue06/05/25 at 2118, Pain Mild (1-3) OR per patient request for pain score (4-10), Fever, For temp greater than 100.4 F (38 C), Maximum dose of acetaminophen is 4000 mg from all sources in 24 hours. dextrose 10 % infusion IntraVENous, at 100 mL/hr, CONTINUOUS PRN, if blood glucose remains LESS THAN 70 mg/dL after 2 dextrose 10% intravenous boluses or administration of glucagon, Starting on Tue06/02/25 at 1205, If blood glucose fails to stabilize after 2 dextrose 10% intravenous boluses or glucagon administration, start dextrose 10% infusion at 100 mL/hour and repeat blood glucose at 30 and 60 minutes. If blood glucose is GREATER THAN 70 mg/dL after 60 minutes, discontinue dextrose 10% infusion. dextrose bolus 10% 125 mL(Linked Group 2) 125 mL, IntraVENous, at 937.5 mL/hr, Administer over 8 Minutes, PRN, Other, Blood glucose 40 - 69 mg/dL and patient NOT ALERT or NPO, Starting on Tue06/02/25 at 1205, Repeat blood glucose in 15 minutes. If blood glucose remains LESS THAN 70 mg/dL, repeat treatment and recheck blood glucose in 15 minutes x 2. If using glycemic management system, dose as instructed per system. If blood glucose remains LESS THAN 70 mg/dL after 2 intravenous boluses start dextrose 10% at 100 mL/hour and notify provider. dextrose bolus 10% 250 mL(Linked Group 2) 250 mL, IntraVENous, at 937.5 mL/hr, Administer over 16 Minutes, PRN, Other, Blood glucose LESS THAN 40 mg/dL and patient NOT ALERT or NPO, Starting on Tue06/02/25 at 1205, Repeat blood glucose in 15 minutes. If blood glucose remains LESS THAN 70 mg/dL, repeat treatment and recheck blood glucose in 15 minutes x 2. If using glycemic management system, dose as instructed per system. If blood glucose remains LESS THAN 70 mg/dL after 2 intravenous boluses start dextrose 10% at 100 mL/hour and notify provider. glucagon injection 1 mg 1 mg, SubCUTAneous, PRN, Starting on Tue06/02/25 at 1205, Until Tue06/05/25 at 211, Low blood sugar, Blood glucose LESS THAN 70 mg/dL and patient NOT ALERT or NPO and does not have IV access., After administration, attempt intravenous access and start dextrose 10% at 100 mL/hr. Repeat blood glucose in 15 minutes x 2 and notify provider. Reconstitute powder for injection by adding 1 mL of tobacco farmworker-supplied sterile diluent or sterile water for injection to a vial containing 1 mg of the drug, to provide solutions containing 1 mg/mL. Shake vial gently to dissolve. glucose chewable tablet 16 g 16 g (4 tablet), Oral, PRN, Starting on Tue06/02/25 at 1205, Until Tue06/05/25 at 2119, Low blood sugar, If blood glucose is LESS THAN 70 mg/dL and patient is alert and tolerating oral. Give 4 tablets (16g) Repeat blood glucose in 15 minutes. If blood glucose is LESS THAN 70 mg/dL, repeat treatment and recheck blood glucose in 15 minutes x 2. If blood glucose remains LESS THAN 70 mg/dL, notify provider. LORazepam (ATIVAN) injection 1 mg (CANCELED) 1 mg, IntraVENous, EVERY 4 HOURS PRN, Starting on Tue06/03/25 at 1640, Until Tue06/04/25 at 1257, Agitation, Immediately prior to intravenous use, lorazepam Injection must be diluted with at least an equal volume of compatible solution (NS or D5W). 1648 (Given - Provider: Pat Nieves RN) magnesium sulfate 1000 mg in dextrose 5% 100 mL IVPB 1,000 mg, IntraVENous, at 100 mL/hr, Administer over 1 Hours, PRN, Other, Per IV Magnesium Replacement Protocol, Starting on Tue06/02/25 at 1205, Mg Lab Replacement Action 1.4-1.6 1 gram IVPB x 2 doses (2 gram Total) 1.0-1.3 1 gram IVPB x 4 doses (4 gram Total) <1.0 CALL PHYSICIAN and 1 gram IVPB x 4 doses (4 gram Total) Infuse at 1 gram/hr Repeat Mag level next AM Protocol not for use in Patients with CrCl<30ml/min ondansetron (ZOFRAN) injection 4 mg(Linked Group 3) 4 mg, IntraVENous, EVERY 6 HOURS PRN, Starting on 06/02/25 at 1205, Until Tue06/05/25 at 2118, Nausea, Vomiting, Administer if oral route cannot be used. 2139 (Given - Provider: Adia Blandon RN) 075 (Given - Provider: Flip Dubose, RN) ondansetron (ZOFRAN-ODT) disintegrating tablet 4 mg(Linked Group 3) 4 mg, Oral, EVERY 8 HOURS PRN, Starting on 06/02/25 at 1205, Until Tue06/05/25 at 2118, Nausea, Vomiting 2139 (See Alternative - Provider: Adia Blandon RN) 0750 (See Alternative - Provider: Flip Dubose, RN) polyethylene glycol (GLYCOLAX) packet 17 g 17 g, Oral, DAILY PRN, Starting on Tue06/02/25 at 1205, Until Tue06/05/25 at 2118, Constipation, First line therapy for constipation potassium bicarb-citric acid (EFFER-K) effervescent tablet 40 mEq(Linked Group 4) 40 mEq, Oral, PRN, Starting on 06/02/25 at 1205, Until Tue06/05/25 at 2118, Per Potassium Replacement Protocol, Administer as alternative if patient unable to tolerate oral tablet. K Lab Replacement Action 3.1 to 3.5 40 mEq ORAL x 1 Under 3.1 Refer to IV replacement protocol Recheck K level in AM. Protocol not for use in patients with CrCl lessthan 30 mL/min. Do not chew or crush. Dissolve flavored tablets completely in 3 to 4 ounces of cold water; unflavored tablets may be dissolved in 3 to 4 ounces of cold juice. Patient to sip slowly over a 5 to 10 minute period. May further dilute if GI adverse effects occur. potassium chloride (KLOR-CON M) extended release tablet 40 mEq(Linked Group 4) 40 mEq, Oral, PRN, Starting on Tue06/02/25 at 1205, Until Tue06/05/25 at 2118, Potassium Replacement, May give alternative linked oral order (ordered as effervescent, packet, or liquid solution) if patient unable to tolerate tablet. K Lab Replacement Action 3.1 to 3.5 40 mEq ORAL x 1 Under 3.1 Refer to IV replacement protocol Recheck K level in AM. Protocol not for use in patients with CrCl less than 30 mL/min. Do not crush, chew, or suck on tablet. Tablet may also be broken in half and each half swallowed separately. potassium chloride 10 mEq/100 mL IVPB (Peripheral Line)(Linked Group 4) 10 mEq, IntraVENous, PRN, Starting on Tue06/02/25 at 1205, Until Tue06/05/25 at 2118, at 100 mL/hr, Potassium Replacement, K Lab Replacement Action 2.7-3.0 10 mEq IVPB x 6 doses (60 mEq Total) < 2.7 CALL PHYSICIAN and 10 mEq IVPB x 6 doses (60 mEq Total) Infuse at 10 mEq/hr Repeat Potassium lab 1 hour after final administration. Not for use in patients with CrCl less than 30 mL/min. sodium chloride flush 0.9 % injection 10 mL 10 mL, IntraVENous, PRN, Starting on Tue06/02/25 at 1205, Until Tue06/05/25 at 2118, Line Care, After every IV line use Linked Groups Order Group 1: acetaminophen (TYLENOL) tablet 650 mgJump to med 650 mg, Oral, EVERY 6 HOURS PRN, Starting on Tue06/02/25 at 1205, Until Tue06/05/25 at 2118, Pain Mild (1-3) OR per patient request for pain score (4-10), Fever, For temp greater than 100.4 F (38 C), Maximum dose of acetaminophen is 4000 mg from all sources in 24 hours. Or acetaminophen (TYLENOL) suppository 650 mgJump to med 650 mg, Rectal, EVERY 6 HOURS PRN, Starting on Tue06/02/25 at 1205, Until Tue06/05/25 at 2118, Pain Mild (1-3) OR per patient request for pain score (4-10), Fever, For temp greater than 100.4 F (38 C), Administer if oral route cannot be used. Group 2: dextrose bolus 10% 125 mLJump to med 125 mL, IntraVENous, at 937.5 mL/hr, Administer over 8 Minutes, PRN, Other, Blood glucose 40 - 69 mg/dL and patient NOT ALERT or NPO, Starting on 06/02/25 at 1205, Repeat blood glucose in 15 minutes. If blood glucose remains LESS THAN 70 mg/dL, repeat treatment and recheck blood glucose in 15 minutes x 2. If using glycemic management system, dose as instructed per system. If blood glucose remains LESS THAN 70 mg/dL after 2 intravenous boluses start dextrose 10% at 100 mL/hour and notify provider. Or dextrose bolus 10% 250 mLJump to med 250 mL, IntraVENous, at 937.5 mL/hr, Administer over 16 Minutes, PRN, Other, Blood glucose LESS THAN 40 mg/dL and patient NOT ALERT or NPO, Starting on Tue06/02/25 at 1205, Repeat blood glucose in 15 minutes. If blood glucose remains LESS THAN 70 mg/dL, repeat treatment and recheck blood glucose in 15 minutes x 2. If using glycemic management system, dose as instructed per system. If blood glucose remains LESS THAN 70 mg/dL after 2 intravenous boluses start dextrose 10% at 100 mL/hour and notify provider. Group 3: ondansetron (ZOFRAN-ODT) disintegrating tablet 4 mgJump to med 4 mg, Oral, EVERY 8 HOURS PRN, Starting on 06/02/25 at 1205, Until Tue06/05/25 at 2118, Nausea, Vomiting Or ondansetron (ZOFRAN) injection 4 mgJump to med 4 mg, IntraVENous, EVERY 6 HOURS PRN, Starting on 06/02/25 at 1205, Until Tue06/05/25 at 2118, Nausea, Vomiting, Administer if oral route cannot be used. Group 4: potassium chloride (KLOR-CON M) extended release tablet 40 mEqJump to med 40 mEq, Oral, PRN, Starting on Tue06/02/25 at 1205, Until Tue06/05/25 at 2118, Potassium Replacement, May give alternative linked oral order (ordered as effervescent, packet, or liquid solution) if patient unable to tolerate tablet. K Lab Replacement Action 3.1 to 3.5 40 mEq ORAL x 1 Under 3.1 Refer to IV replacement protocol Recheck K level in AM. Protocol not for use in patients with CrCl less than 30 mL/min. Do not crush, chew, or suck on tablet. Tablet may also be broken in half and each half swallowed separately. Or potassium bicarb-citric acid (EFFER-K) effervescent tablet 40 mEqJump to med 40 mEq, Oral, PRN, Starting on Tue06/02/25 at 1205, Until Tue06/05/25 at 2118, Per Potassium Replacement Protocol, Administer as alternative if patient unable to tolerate oral tablet. K Lab Replacement Action 3.1 to 3.5 40 mEq ORAL x 1 Under 3.1 Refer to IV replacement protocol Recheck K level in AM. Protocol not for use in patients with CrCl lessthan 30 mL/min. Do not chew or crush. Dissolve flavored tablets completely in 3 to 4 ounces of cold water; unflavored tablets may be dissolved in 3 to 4 ounces of cold juice. Patient to sip slowly over a 5 to 10 minute period. May further dilute if GI adverse effects occur. Or potassium chloride 10 mEq/100 mL IVPB (Peripheral Line)Jump to med 10 mEq, IntraVENous, PRN, Starting on Tue06/02/25 at 1205, Until Tue06/05/25 at 2118, at 100 mL/hr, Potassium Replacement, K Lab Replacement Action 2.7-3.0 10 mEq IVPB x 6 doses (60 mEq Total) < 2.7 CALL PHYSICIAN and 10 mEq IVPB x 6 doses (60 mEq Total) Infuse at 10 mEq/hr Repeat Potassium lab 1 hour after final administration. Not for use in patients with CrCl less than 30 mL/min. documented in this encounter Care Teams Rn Camp Relationship Specialty Start Date End Date Soledad Vicente APRN - NP [address] [place] [address] PCP - General 06/05/25 documented as of this encounter
--- OUTSIDE RECORDS SUMMARY | 2025-06-07 23:59 | XMS_ITS | Continuity of Care Document ---
Author Organization [facility] Address [address] [place] [address] Care Team Providers Care Corn Sheller Operator Name Role Phone YANIQUE CHAMBERS Primary Care Physician [phone] Encounter [facility] [id number] Date(s): 06/07/25 - 06/07/[address] [address]- Encounter Diagnosis Hyponatremia(Discharge Diagnosis) - 06/07/25 BMI 23.0-23.9, adult(Discharge Diagnosis) - 06/07/25 Nonsmoker(Discharge Diagnosis) - 06/07/25 Hospital discharge follow-up(Discharge Diagnosis) - 06/07/25 Discharge Disposition: Home (Routine DC) Attending Physician: YANIQUE CHAMBERS CNP Encounter Type: Clinic Allergies, Adverse Reactions, Alerts No Known Medication Allergies Assessment and Plan Future Appointments Appointment Date:06/13/2025 09:00:00 AM Scheduled Provider:YANIQUE CHAMBERS CNP Location:[facility] Appointment Type:FM Open Appointment Date:08/09/2025 10:40:00 AM Scheduled Provider:YANIQUE CHAMBERS CNP Location:[facility] Appointment Type:FM Open Appointment Date:05/13/2026 08:00:00 AM Scheduled Provider: Location:[facility] Appointment Type:FM Medicare Wellness Subsequent Future Scheduled [...] daily, # 45 tab(s), Refills(s) 2, [facility], 178.6, cm, 05/09/25 8:18:00 EDT, Height/Length Dosing, 80.6, kg, 05/09/25 8:18:00 EDT, Weight Dosing Start Date: 05/20/25 Status: Ordered Quantity: 45.0 Unit: tab(s) Repeat number: 3 cephalexin 500 mg Cap Refills(s) 0 Start Date: 06/07/25 Status: Ordered Repeat number: 1 Cialis 2.5 mg oral tablet 2.5 mg = 1 tab(s), Oral, Daily, PRN for erectile dysfunction, # 7 tab(s), Refills(s) 0, Pharmacy: [facility]/pharmacy #[id number], 178.6, cm, 02/05/25 13:36:00 EDT, Height/Length [...] Daily, # 90 tab(s), Refills(s) 1, Pharmacy: [facility], 178.6, cm, 01/24/25 13:29:00 EDT, Height/Length Dosing, 82.7, kg, 01/24/25 13:29:00 EDT, Weight Dosing Start Date: 01/29/25 Status: Ordered Quantity: 90.0 Unit: tab(s) Repeat number: 2 gabapentin 300 mg Cap 300 mg = 1 cap(s), Oral, Daily, # 90 cap(s), Refills(s) 1, Pharmacy: [facility], 178.6, cm, 02/05/25 13:36:00 EDT, Height/Length Dosing, 82.2, kg, 02/05/25 13:36:00 EDT, WeightDosing Start Date: 04/25/25 Status: Ordered Quantity: 90.0 Unit: cap(s) Repeat number: 2 glimepiride 2 mg Tab 2 mg = 1 tab(s), Oral, Daily, # 90 tab(s), Refills(s) 1, Pharmacy: [facility], 178.6, cm, 02/05/25 13:36:00 EDT, Height/Length Dosing, 82.2, kg, 02/05/25 13:36:00 EDT, Weight Dosing Start Date: 02/18/25 Status: Ordered Quantity: 90.0 Unit: tab(s) Repeat number: 2 levothyroxine 25 mcg (0.025 mg) Tab See Instructions, TAKE 1 TABLET BY MOUTH DAILY ON AN EMPTY STOMACH, # 90 tab(s), Refills(s) 1, Pharmacy: [facility] [id number], 178.6, cm, 02/05/25 13:36:00 EDT, Height/Length Dosing, 82.2, kg, 02/05/25 13:36:00 EDT, Weight Dosing Start Date: 03/07/25 Status: Ordered Quantity: 90.0 Unit: tab(s) Repeat number: 1 lisinopril 10 mg Tab Refills(s) 0 Start Date: 06/07/25 Status: Ordered Repeat number: 1 meloxicam 7.5 mg Tab 7.5 mg = 1 tab(s), Oral, Daily, TAKE 1 TABLET DAILY, # 30 tab(s), Refills(s) 2, Pharmacy: [facility], 178.6, cm, 02/05/25 13:36:00 EDT, Height/Length Dosing, 82.2, kg, 02/05/2513:36:00 EDT, Weight Dosing Start Date: 04/25/25 Status: Ordered Quantity: 30.0 Unit: tab(s) Repeat number: 3 omeprazole 40 mg Cap-DR 40 mg = 1 cap(s), Oral, Daily, # 90 cap(s), Refills(s) 1, Pharmacy: [facility], 178.6, cm, 12/24/24 13:13:00 EST, Height/Length Dosing, 79, kg, 12/24/24 13:13:00 EST, Weight Dosing Start Date: 01/07/25 Status: Ordered Quantity: 90.0 Unit: cap(s) Repeat number: 2 pravastatin 40 mg Tab 40 mg = 1 tab(s), Oral, Daily, # 90 tab(s), Refills(s) 3, Pharmacy: [facility], 178, cm, 09/10/24 13:01:00 EDT, Height/Length Dosing, 80.1, kg, 09/10/24 13:01:00 EDT, Weight Dosing Start Date: 10/04/24 Status: Ordered Quantity: 90.0 Unit: tab(s) Repeat number: 4 tamsulosin 0.4 mg Cap 0.4 mg = 1 cap(s), Oral, Daily, # 90 cap(s), Refills(s) 3, Pharmacy: [facility], 178.6, cm, 02/05/25 13:36:00 EDT, Height/Length Dosing, 82.2, kg, 02/05/25 13:36:00 EDT, WeightDosing Start Date: 05/07/25 Status: Ordered Quantity: 90.0 Unit: cap(s) Repeat number: 4 Turmeric 500 mg oral capsule 500 mg = 1 cap(s), Oral, Daily, PRN Prophylaxis, Refills(s) 0 Start Date: 03/06/24 Status: Ordered Repeat number: 1 Ure-Na Ure-Na, See Instructions, 15 packet(s), 0, Natural Lemon [place] flavor, [facility]/pharmacy #[id number], Supply, 178.6, cm, 06/07/25 10:56:00 EDT, Height/Length Dosing, 74.3, kg, 06/07/25 10:56:00 EDT, Weight Dosing Start Date: 06/07/25 Status: Ordered Quantity: 15.0 Unit: packet(s) Repeat number: 1 Indications: Body mass index [BMI] 23.0-23.9, adult; Hypo-osmolality and hyponatremia; Other specified health status; Type 2 diabetes mellitus with other circulatory complications; urea 15 g oral powder for reconstitution gm, Oral, Daily, Refills(s) 0 Start Date: 06/07/25 Status: Ordered Repeat number: 1 Vitamin B12 50 mcg, Oral, Daily, PRN Prophylaxis, Refills(s) 0 Start Date: 03/06/24 Status: Ordered Repeat number: 1 warfarin 5 mg Tab 5 mg = 1 tab(s), Oral, Daily, # 90 tab(s), Refills(s) 0, Pharmacy: [facility], 178.6, cm, 02/05/25 13:36:00 EDT, Height/Length Dosing, 82.2, kg, 02/05/25 13:36:00 EDT, Weight Dosing Start Date: 03/27/25 Status: Ordered Quantity: 90.0 Unit: tab(s) Repeat number: 1 Problem List Condition Confirmation Course Effective Dates Status H ealth Status Informant ASCVD (arteriosclerotic cardiovascular disease) Confirmed Active BMI 23.0-23.9, adult Confirmed Active Overweight (BMI 25.0-29.9) Confirmed Active [...] Com pleted Carpal tunnel release Com pleted Nose Completed Release of trigger finger Completed Surgery, neck X 2 Complet ed Social History Social History Type Response Smoking Status Never (less than 100 in lifetime);Never; Concerns about tobacco use in household: No; Smoking Cessation Yes 1 entered on: 06/07/25 Sex Male Sex Representation Male (finding) 1denies use. Hospital Discharge Instructions Patient Education 06/07/2025 14:33:39 Hyponatremia, Yabw-fe-Dtof Hyponatremia Hyponatremia is when the amount of salt (sodium) in your blood is too low. When salt levels are low, your body cells may take in extra water. This can cause swelling. The swelling often affects the brain. What are the causes? Certain medical problems or conditions. ??? Vomiting a lot. ??? Having watery poop (diarrhea) often. ??? Sweating too much. ??? Taking certain medicines or using illegal drugs. ??? Fluids given through an IV tube. What increases the risk? Having heart, kidney, or liver failure. ??? Having a medical condition that causes you to have watery poop a lot. ??? Doing very hard exercises. ??? Taking medicines that affect the amount of salt that is in your blood. What are the signs or symptoms? Symptoms of this condition include: ??? Headache. ??? Feeling like you may vomit (nausea). ??? Vomiting. ??? Being very tired. ??? Muscle weakness and cramps. ??? Not wanting to eat as much as normal. ??? Feeling weak or dizzy. Very bad symptoms of this condition include: ??? Confusion. ??? Feeling restless. ??? Having a fast heart rate. ??? Fainting. ??? Seizures. ??? Coma. How is this treated? Treatment for this condition depends on the cause. Treatment may include: ??? Getting fluids through an IV tube that is put into one of your veins. ??? Taking medicines to fix the salt levels in your blood. If medicines are causing the problem, your medicines will need to be changed. ??? Limiting how much water or fluid you take in, in some cases. ??? Monitoring in the hospital to watch your symptoms. Follow these instructions at home: ??? Take gonb-ijf-ayejqsk and prescription medicines only as told by your doctor. Many medicines can make this condition worse. Talk with your doctor about any medicines that you are taking. ??? Do not drink alcohol. ??? Keep all follow-up visits. Contact a doctor if: ??? You feel more like you may vomit. ??? You feel more tired. ??? Your headache gets worse. ??? You feel more confused. ??? You feel weaker. ??? Your symptoms go away and then they come back. Get help right away if: ??? You have a seizure. ??? You faint. ??? You keep having watery poop. ??? You keep vomiting. Summary ??? Hyponatremia is when the amount of salt in your blood is too low. ??? When salt levels are low, you can have swelling throughout the body. The swelling mostly affects the brain. ??? Treatment depends on the cause. ??? Treatment may include IV fluids and changing medicines. This information is not intended to replace advice given to you by your health care provider. Make sure you discuss any questions you have with your health care provider. Document Revised: 05/11/2022 Document Reviewed: 05/11/2022 [employer] Patient Education ?? 2023 [employer]. Follow Up Care 06/06/2025 09:42:17 With:YANIQUE CHAMBERS CNP, FAM Address: [address] [place] [phone] Business (1) When:06/13/2025 Patient Care team information Care Team Personnel Name: Alec Rodrigez Position: FT Blood Bank Laboratory Technologist - Self Assign Member Role: Date Night Caregiver Name: YANIQUE CHAMBERS CNP Position: FT Ambulatory - Primary Care - [place] Member Role: Primary Care Physician Address: [address] [place] [phone] Telecom: Care Team Related Persons Name: HENRY ZABALA Insurance Providers Guarantor name: Health Plan Information #: 1 Payer: NA Payer Identifier: [id number] Member Number: [id number] Group Number: [id number] Subscriber Identifier: [id number] Relationship to Subscriber: Self Coverage Type: MEDICARE Coverage Verification Date: 25 Telecom: Address:
--- OUTSIDE RECORDS SUMMARY | 2025-06-07 23:59 | XMS_ITS | Continuity of Care Document ---
Author Organization [facility] Address Unknown Care Team Providers Care Graphic Art Designer Name Role Phone YANIQUE CHAMBERS Primary Care Physician [phone] Encounter _[facility] [id number] Date(s): 06/07/25 - 06/07/25 [address] [address] Discharge Disposition: Home (Routine DC) Attending Physician: YANIQUE CHAMBERS CNP Admitting Physician: YANIQUE CHAMBERS CNP Encounter Type: Lab Drop off Allergies, Adverse Reactions, Alerts No Known Medication Allergies Assessment and Plan Future Appointments Appointment Date:06/13/2025 09:00:00 AM Scheduled Provider:YANIQUE CHAMBERS CNP Location:[facility] Appointment Type: Open Appointment Date:08/09/2025 10:40:00 AM Scheduled Provider:YANIQUE CHAMBERS CNP Location[facility] Appointment Type: Open Appointment Date:05/13/2026 08:00:00 AM Scheduled Provider: Location:[facility] Appointment Type:FM Medicare Wellness Subsequent Future Scheduled [...] daily, # 45 tab(s), Refills(s) 2, [facility], 178.6, cm, 05/09/25 8:18:00 EDT, Height/Length Dosing, 80.6, kg, 05/09/25 8:18:00 EDT, Weight Dosing Start Date: 05/20/25 Status: Ordered Quantity: 45.0 Unit: tab(s) Repeat number: 3 cephalexin 500 mg Cap Refills(s) 0 Start Date: 06/07/25 Status: Ordered Repeat number: 1 Cialis 2.5 mg oral tablet 2.5 mg = 1 tab(s), Oral, Daily, PRN for erectile dysfunction, # 7 tab(s), Refills(s) 0, Pharmacy: [facility]/pharmacy #[id number], 178.6, cm, 02/05/25 13:36:00 EDT, [...] 1, Pharmacy: [facility], 178.6, cm, 01/24/25 13:29:00 EDT, Height/Length Dosing, 82.7, kg, 01/24/25 13:29:00 EDT, Weight Dosing Start Date: 01/29/25 Status: Ordered Quantity: 90.0 Unit: tab(s) Repeat number: 2 gabapentin 300 mg Cap 300 mg = 1 cap(s), Oral, Daily, # 90 cap(s), Refills(s) 1, Pharmacy: [facility], 178.6, cm, 02/05/25 13:36:00 EDT, Height/Length Dosing, 82.2, kg, 02/05/25 13:36:00 EDT, WeightDosing Start Date: 04/25/25 Status: Ordered Quantity: 90.0 Unit: cap(s) Repeat number: 2 glimepiride 2 mg Tab 2 mg = 1 tab(s), Oral, Daily, # 90 tab(s), Refills(s) 1, Pharmacy: [facility], 178.6, cm, 02/05/25 13:36:00 EDT, Height/Length Dosing, 82.2, kg, 02/05/25 13:36:00 EDT, Weight Dosing Start Date: 02/18/25 Status: Ordered Quantity: 90.0 Unit: tab(s) Repeat number: 2 levothyroxine 25 mcg (0.025 mg) Tab See Instructions, TAKE 1 TABLET BY MOUTH DAILY ON AN EMPTY STOMACH, # 90 tab(s), Refills(s) 1, Pharmacy: [facility] [id number], 178.6, cm, 02/05/25 13:36:00 EDT, Height/Length Dosing, 82.2, kg, 02/05/25 13:36:00 EDT, Weight Dosing Start Date: 03/07/25 Status: Ordered Quantity: 90.0 Unit: tab(s) Repeat number: 1 lisinopril 10 mg Tab Refills(s) 0 Start Date: 06/07/25 Status: Ordered Repeat number: 1 meloxicam 7.5 mg Tab 7.5 mg = 1 tab(s), Oral, Daily, TAKE 1 TABLET DAILY, # 30 tab(s), Refills(s) 2, Pharmacy: [facility], 178.6, cm, 02/05/25 13:36:00 EDT, Height/Length Dosing, 82.2, kg, 02/05/2513:36:00 EDT, Weight Dosing Start Date: 04/25/25 Status: Ordered Quantity: 30.0 Unit: tab(s) Repeat number: 3 omeprazole 40 mg Cap-DR 40 mg = 1 cap(s), Oral, Daily, # 90 cap(s), Refills(s) 1, Pharmacy: [facility], 178.6, cm, 12/24/24 13:13:00 EST, Height/Length Dosing, 79, kg, 12/24/24 13:13:00 EST, Weight Dosing Start Date: 01/07/25 Status: Ordered Quantity: 90.0 Unit: cap(s) Repeat number: 2 pravastatin 40 mg Tab 40 mg = 1 tab(s), Oral, Daily, # 90 tab(s), Refills(s) 3, Pharmacy: [facility], 178, cm, 09/10/24 13:01:00 EDT, Height/Length Dosing, 80.1, kg, 09/10/24 13:01:00 EDT, Weight Dosing Start Date: 10/04/24 Status: Ordered Quantity: 90.0 Unit: tab(s) Repeat number: 4 tamsulosin 0.4 mg Cap 0.4 mg = 1 cap(s), Oral, Daily, # 90 cap(s), Refills(s) 3, Pharmacy: [facility], 178.6, cm, 02/05/25 13:36:00 EDT, Height/Length Dosing, 82.2, kg, 02/05/25 13:36:00 EDT, WeightDosing Start Date: 05/07/25 Status: Ordered Quantity: 90.0 Unit: cap(s) Repeat number: 4 Turmeric 500 mg oral capsule 500 mg = 1 cap(s), Oral, Daily, PRN Prophylaxis, Refills(s) 0 Start Date: 03/06/24 Status: Ordered Repeat number: 1 Ure-Na Ure-Na, See Instructions, 15 packet(s), 0, Natural Lemon [place] flavor, [facility]/pharmacy #[id number], Supply, 178.6, cm, 06/07/25 10:56:00 EDT, [...] Daily, # 90 tab(s), Refills(s) 0, Pharmacy: [facility], 178.6, cm, 02/05/25 13:36:00 EDT, [...] Complet ed Results Laboratory List Name Date Comprehensive Metabolic Panel (CMP) 06/07 eGFR 06/07/25 Most recent to oldest [Reference Range]: 1 A/G Ratio [1.1-2.2] 1.6 (06/07/25 12:11 PM) BUN/Creat Ratio [10-20] 26 *HI* (06/07/25 12:11 PM) AGAP [6-16 mEq/L] 9 mEq/L (06/07/25 12:11 PM) Albumin Lvl [3.3-5.0 gm/dL] 4.1 gm/dL (06/07/25 12:11 PM) Alk Phos [21-98 Int._Unit/L] 86 Int._Uni t/L (06/07/25 12:11 PM) ALT [6-46 Int._Unit/L] 12 Int._Unit/L (06/07/25 12:11 PM) AST [5-43 Int._Unit/L] 24 Int._Unit/L (06/07/25 12:11 PM) Bili Total [0.0-1.1 mg/dL] 1.0 mg/dL (06/07/25 12:11 PM) CO2 [21-31 mmol/L] 27 mmol/L (06/07/25 12:11 PM) Glucose Lvl [55-199 mg/dL] 190 mg/dL (06/07/25 12:11 PM) Sodium Lvl [135-145 mmol/L] 127 mmol/L *LOW* (06/07/25 12:11 PM) Total Protein [6.0-7.8 gm/dL] 6.7 gm/dL (06/07/25 12:11 PM) BUN [5-21 mg/dL] 29 mg/dL *HI* (06/07/25 12:11 PM) Calcium Lvl [8.9-11.1 mg/dL] 9.8 mg/dL (06/07/25 12:11 PM) Potassium Lvl [3.5-5.3 mmol/L] 4.2 mmol/ L (06/07/25 12:11 PM) Chloride [101-111 mmol/L] 95 mmol/L *LOW* (06/07/25 12:11 PM) eGFR [>=59 mL/min/1.73 m2] 67 mL/min/1.7 3 m2 (06/07/25 12:11 PM) Globulin [1.4-4.0 gm/dL] 2.6 gm/dL (06/07/25 12:11 PM) Creatinine [0.5-1.3 mg/dL] 1.1 mg/dL (06/07/25 12:11 PM) Social History Social History Type Response Smoking Status Never (less than 100 in lifetime);Never; Concerns about tobacco use in household: No; Smoking Cessation Yes 1 entered on: 06/07/25 Sex Male Sex Representation Male (finding) 1denies use. Patient Care team information Care Team Personnel Name: Alec Rodrigez Position: FT Remote Sensing Advisor - Self Assign Member Role: Home Demonstrator Name: YANIQUE CHAMBERS CNP Position: FT Ambulatory - Primary Care - [facility] Member Role: Primary Care Physician Address: [address] [place] [phone] Telecom: Care Team Related Persons Name: HENRY ZABALA Insurance Providers Guarantor name: Health Plan Information #: 1 Payer: NA Payer Identifier: [id number] Member Number: [id number] Group Number: [id number] Subscriber Identifier: [id number] Relationship to Subscriber: Self Coverage Type: MEDICARE Coverage Verification Date: NA Telecom: NA Address:
--- OUTSIDE RECORDS SUMMARY | 2025-06-12 18:05 | XMS_ITS | Encounter Summary ---
Author Organization [facility] Address [id number] [address] [place] [address] Care Team Providers Care Actuarial Analyst Name Role Phone Unavailable Primary Care Provider Unavailabl e Encounter Details Date Type Department Care Team (Late st Contact Info) Description 06/12/2025 6:05 PM EDT Ancillary Procedure [facility] [place] [address] Pain Social History Tobacco Use Types Packs/Day Years Used Date Smoking Tobacco: Never Assessed Sex and Gender Information Value Date Recorded Sex Assigned at Not on file Legal Sex Male 1:53 AM EDT Gender Identity Not on file Sexual Orientation Not on file documented as of this encounter Plan of Treatment Not on file documented as of this encounter Procedures Procedure Name Priority Date/Time Associated Diagnosis Comments CT BRAIN WO CONT STROKE ALERT STAT Reading 06/12/2025 6:05 PM EDT Pain documented in this encounter Results * CT brain without contrast stroke alert (06/12/2025 6:05 PM EDT) us Scanning Provider External IMG CT ORDERABLES Fin al Result documented in this encounter Visit Diagnoses Diagnosis Pain Generalized pain documented in this encounter
--- OUTSIDE RECORDS SUMMARY | 2025-06-12 18:30 | XMS_ITS | Encounter Summary ---
Author Organization [facility] [facility] Address [id number] [address] [place] [address] Care Team Providers Care Windshield Technician Name Role Phone Britt Mc[facility]ill [facility] Primary Care Provider + Encounter Details Date Type Department Care Team (Late st Contact Info) Description 06/12/2025 6:30 PM EDT - 06/16/2025 1:56 PM EDT Emergency [facility] Tele Stroke [address] [place] [address] Discharge Disposition: Telemedicine Discharge Social History Tobacco Use Types Packs/Day Years Used Date Smoking Tobacco: Never Assessed Sex and Gender Information Value Date Recorded Sex Assigned at Not on file Legal Sex Male 1:53 AM EDT Gender Identity Not on file Sexual Orientation Not on file documented as of this encounter Miscellaneous Notes * Plan of Care - TANYA Archibald - 06/15/2025 8:36 AM EDT TELESTROKE PLAN OF CARE NOTE: Called Jackie and patient no longer admitted. TANYA Archibald 06/15/25 0836 * Telehealth Consult - Mirian Carranza MD - 06/13/2025 10:28 AM EDT Images from the original note were not included. Consults Tele-Stroke Telemedicine Consult Note Consent Statement: I discussed risks, benefits, and alternatives of a real-time synchronous audiovisual consultation with the patient (and any accompanying persons) including the risks that the patient's personal health details and medical records will be discussed over real-time, synchronous, interactive video/audio/telecommunication technology, the visit will not be recorded without the express consent of both the provider and the patient, and that there are some limitations compared to [id number] evaluations. We elected to proceed. TELESTROKE CONSULTATION NOTE Facility:[facility] Stroke Alert notification: n/a Telestroke Activation: 06/13 Stroke Cart Used?Yes Patient Evaluated: Floor Chief Complaint of: slurred speech History of Present Illness: Dariel Aguilera is an 85 yo gentleman with a pmhx of Paroxysmal atrial fibrillation on warfarin, DM2,HLD, Hx of hyponatremia, [place] who presented to [facility] for onset of slurred speech and difficulty word finding starting around 1500 on 06/12. Symptoms started improving while in the ER. No rep orted focal deficits. Patient noted to have subtherapeutic INR of 1.16 on admission. Chronic tingling in hands since his carpel tunnel surgeries. Family feels he is better today. Denies headache, vision changes, dysarthria, dysphagia, weakness On Ure-NA, off NA tabs. Epistaxis on 06/02, warfarin was held but resumed at some point afterwards. 1.9 on 06/05. PMHx Hypothyroidism Hyponatremia Hypomagnesemia Paroxysmal Atrial Fibrillation DM2 HLD Syncope Lumbar spondylosis PSHx Hx of carpel tunnel repair Social Hx Family Hx Hx of HTN, NE in Father Hx of CA, DM2 in mother Denies family history of CHF, COPD, stroke Physical Exam: Please note that parts of the physical exam were performed with assistance from bedside nursing staff. NIH Stroke Scale 1a Level of consciousness: 0=alert; keenly responsive 1b. LOC questions: 1=Performs one task correctly 1c. LOC commands: 0=Performs both tasks correctly 2. Best Gaze: 0=normal 3. Visual: 0=No visual loss 4. Facial Palsy: 0=Normal symmetric movement 5a. Motor left arm: 0=No drift, limb holds 90 (or 45) degrees for full 10 seconds 5b. Motor right arm: 0=No drift, limb holds 90 (or 45) degrees for full 10 seconds 6a. motor left le=No drift, limb holds 90 (or 45) degrees for full 10 seconds 6b Motor right le=No drift, limb holds 90 (or 45) degrees for full 10 seconds 7. Limb Ataxia: 0=Absent 8. Sensory: 0=Normal; no sensory loss 9. Best Language: 0=No aphasia, normal 10. Dysarthria: 0=Normal 11. Extinction and Inattention: 0=No abnormality NIHSS1 General Appearance: alert, active, cooperative, and in no distress. Very [place] Head: Normocephalic, without obvious abnormality, atraumatic Eyes: EOMIs. Vision seems intact, although exam is limited. Lungs: non-labored. Heart: on monitor Abdomen: soft, non-tender; bowel sounds normal; no masses, no organomegaly Extremities: extremities normal, atraumatic, no cyanosis or edema Skin: Skin color, texture, turgor normal. No rashes or lesions Neurologic: b/l hand tingling (chronic), otherwise no focal deficits. Speech fluent, no aphasia or dysarthria. Data Reviewed: Labs: Radiology: CT head: CTA: ASSESSMENT & PLAN Stroke-like symptoms - as evidenced by transient speech difficulty - pending completion of MRI - If MRI negative then okay to discharge - recheck INR today, if not therapeutic then would have him take an 81 mg aspirin to bridge warfarin until he is therapeutic. - If MRI is positive then would recommend getting an echocardiogram - Patient is insistent on discharging today if possible. He is agreeable at time of encounter to complete the MRI. 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 Unclear from patient/family on why is specifically on warfarin In preparation of caring for this patient, I, EDWARD Martinez PA-C, assisted with documentation during the assessment of this patient. If you have any further questions please feel free to contact the Telestroke/ Stroke Team. Thank you for asking us to be part of this patient's care. [id number] Telestroke Consult from 50-70 minutes Attending Attestation: IMirian MD, personally performed the face to face diagnostic evaluation on this patient. I have reviewed the EDWARD's History, Exam, and MDM and agree with the assessment and plan as written. The encounter comprised of: Preparing to see the patient (e.g., review of tests) Obtaining and/or reviewing separately obtained history Performing a medically appropriate examination and/or evaluation Counseling and educating the patient/family/caregiver Documenting clinical information in the electronic or other health record Independently interpreting results (not separately reported) and communicating results to the patient/family/caregiver Care coordination (not separately reported) Mirian Carranza MD Vascular Neurologist [facility] Neurology # [phone]([facility]) Important Notice: This note was created with the assistance of a speech recognition program. While intending to generate a timely document that accurately reflects the content of the encounter, no guarantee can be provided that every grammatical or spelling mistake has been or will be identified or corrected. Thank you for your understanding. Pat Martinez PA-C 06/13/25 1322 documented in this encounter Plan of Treatment Not on file documented as of this encounter Visit Diagnoses Not on filedocumented in this encounter Care Teams Windshield Technician Relationship Specialty Start Date End Date Britt Mcneill, THOMAS-AVELINA [address] [facility] [address] [place] [address] PCP - General Family Medicine 06/13/25 documented as of this encounter
--- OUTSIDE RECORDS SUMMARY | 2025-06-13 15:50 | XMS_ITS | Encounter Summary ---
Author Organization [facility] Address [id number] [address] [place] [address] Care Team Providers Care Seed Analyst Name Role Phone Britt Mcneill APRN-BOAT WASHER Primary Care Provider + Encounter Details Date Type Department Care Team (Late st Contact Info) Description 06/13/2025 3:50 PM EDT Ancillary Procedure [facility] [place] [address] Pain Social History Tobacco Use [...] Procedure Name Priority Date/Time Associated Diagnosis Comments MR BRAIN WO CONT Routine 06/13/2025 3:50 PM EDT Pain documented in this encounter Results * MR brain without contrast (06/13/2025 3:50 PM EDT) us Scanning Provider External IMG MRI ORDERABLES Fi nal Result documented in this encounter Visit Diagnoses Diagnosis Pain Generalized pain documented in this encounter Care Teams Seed Analyst Relationship Specialty Start Date End Date Britt Mcneill APRN-CNP [address] [place] [address] PCP - General Family Medicine 06/13/25 documented as of this encounter
--- OUTSIDE RECORDS SUMMARY | 2025-06-13 23:59 | XMS_ITS | Continuity of Care Document ---
Author Organization [facility] Address [address] [place] [address] Care Team Providers Care Gas Usage Meter Clerk Name Role Phone YANIQUE CHAMBERS Primary Care Physician Encounter FT_AMBFIN [id number] Date(s): 06/13/25 - 06/13/25 [facility] [address] [place] [phone]- Encounter Diagnosis Hyponatremia(Discharge Diagnosis) - 06/13/25 Discharge Disposition: Home (Routine DC) Attending Physician: YANIQUE CHAMBERS CNP Encounter Type: Clinic Allergies, Adverse Reactions, Alerts No Known Medication Allergies Assessment and Plan Future Appointments Appointment Date:06/19/2025 01:40:00 PM Scheduled Provider:YANIQUE CHAMBERS CNP Location:[facility] Appointment Type: Hospital Follow Up w/TCM Appointment Date:08/09/2025 10:40:00 AM Scheduled Provider:YANIQUE CHAMBERS CNP Location:[facility] Appointment Type: Open Appointment Date:05/13/2026 08:00:00 AM Scheduled Provider: Location:[facility] Appointment Type: Medicare Wellness Subsequent Future [...] daily, # 45 tab(s), Refills(s) 2, [facility], 178.6, cm, 05/09/25 8:18:00 EDT, Height/Length Dosing, 80.6, kg, 05/09/25 8:18:00 EDT, Weight Dosing Start Date: 05/20/25 Status: Ordered Quantity: 45.0 Unit: tab(s) Repeat number: 3 cephalexin 500 mg Cap Refills(s) 0 Start Date: 06/07/25 Status: Ordered Repeat number: 1 Cialis 2.5 mg oral tablet 2.5 mg = 1 tab(s), Oral, Daily, PRN for erectile dysfunction, # 7 tab(s), Refills(s) 0, [id number], 178.6, cm, 02/05/25 13:36:00 EDT, Height/Length [...] Refills(s) 1, Pharmacy: [facility], 178.6, cm, 01/24/25 13:29:00 EDT, Height/Length Dosing, 82.7, kg, 01/24/25 13:29:00 EDT, Weight Dosing Start Date: 01/29/25 Status: Ordered Quantity: 90.0 Unit: tab(s) Repeat number: 2 gabapentin 300 mg Cap 300 mg = 1 cap(s), Oral, Daily, # 90 cap(s), Refills(s) 1, Pharmacy: [facility], 178.6, cm, 02/05/25 13:36:00 EDT, Height/Length Dosing, 82.2, kg, 02/05/25 13:36:00 EDT, WeightDosing Start Date: 04/25/25 Status: Ordered Quantity: 90.0 Unit: cap(s) Repeat number: 2 glimepiride 2 mg Tab 2 mg = 1 tab(s), Oral, Daily, # 90 tab(s), Refills(s) 1, Pharmacy: [facility], 178.6, cm, 02/05/25 13:36:00 EDT, Height/Length Dosing, 82.2, kg, 02/05/25 13:36:00 EDT, Weight Dosing Start Date: 02/18/25 Status: Ordered Quantity: 90.0 Unit: tab(s) Repeat number: 2 levothyroxine 25 mcg (0.025 mg) Tab See Instructions, TAKE 1 TABLET BY MOUTH DAILY ON AN EMPTY STOMACH, # 90 tab(s), Refills(s) 1, Pharmacy: [id number], 178.6, cm, 02/05/25 13:36:00 EDT, Height/Length Dosing, 82.2, kg, 02/05/25 13:36:00 EDT, Weight Dosing Start Date: 03/07/25 Status: Ordered Quantity: 90.0 Unit: tab(s) Repeat number: 1 lisinopril 10 mg Tab Refills(s) 0 Start Date: 06/07/25 Status: Ordered Repeat number: 1 meloxicam 7.5 mg Tab 7.5 mg = 1 tab(s), Oral, Daily, TAKE 1 TABLET DAILY, # 90 tab(s), Refills(s) 0, Pharmacy: [facility], 178.6, cm, 06/07/25 10:56:00 EDT, Height/Length Dosing, 74.3, kg, 06/07/2510:56:00 EDT, Weight Dosing Start Date: 06/11/25 Status: Ordered Quantity: 90.0 Unit: tab(s) Repeat number: 1 omeprazole 40 mg Cap-DR 40 mg = 1 cap(s), Oral, Daily, # 90 cap(s), Refills(s) 1, Pharmacy: [facility], 178.6, cm, 12/24/24 13:13:00 EST, Height/Length Dosing, 79, kg, 12/24/24 13:13:00 EST, Weight Dosing Start Date: 01/07/25 Status: Ordered Quantity: 90.0 Unit: cap(s) Repeat number: 2 pravastatin 40 mg Tab 40 mg = 1 tab(s), Oral, Daily, # 90 tab(s), Refills(s) 0, Pharmacy: [facility], 178.6, cm, 06/07/25 10:56:00 EDT, Height/Length Dosing, 74.3, kg, 06/07/25 10:56:00 EDT, Weight Dosing Start Date: 06/11/25 Status: Ordered Quantity: 90.0 Unit: tab(s) Repeat number: 1 tamsulosin 0.4 mg Cap 0.4 mg = 1 cap(s), Oral, Daily, # 90 cap(s), Refills(s) 3, Pharmacy: [facility], 178.6, cm, 02/05/25 13:36:00 EDT, Height/Length Dosing, 82.2, kg, 02/05/25 13:36:00 EDT, WeightDosing Start Date: 05/07/25 Status: Ordered Quantity: 90.0 Unit: cap(s) Repeat number: 4 Turmeric 500 mg oral capsule 500 mg = 1 cap(s), Oral, Daily, PRN Prophylaxis, Refills(s) 0 Start Date: 03/06/24 Status: Ordered Repeat number: 1 Ure-Na Ure-Na, See Instructions, 15 packet(s), 0, Natural Lemon [place] flavor, [id number], Supply, 178.6, cm, 06/07/25 10:56:00 [...] Daily, # 90 tab(s), Refills(s) 0, Pharmacy: [facility], 178.6, cm, 02/05/25 13:36:00 EDT, Height/Length Dosing, [...] Team Personnel Name: Alec Rodrigez Position: FT Core Drier - Self Assign Member Role: Rotary Drum Dyer Name: YANIQUE CHAMBERS CNP Position: FT Ambulatory - Primary Care - EDWARD Member Role: Primary Care Physician Address: [address] [place] [phone] Telecom: Care Team Related Persons Name: HENRY ZABALA Insurance Providers Guarantor name: Health Plan Information #: 1 Payer: NA Payer Identifier: [id number] Member Number: [id number] Group Number: [id number] Subscriber Identifier: [id number] Relationship to Subscriber: Self Coverage Type: MEDICARE Coverage Verification Date: 25 Telecom: NA Address:
[2025-06-17] VITALS (24 sets, daily range): BP systolic 119–174; BP diastolic 50–89; PULSE 68–109; O2SAT 97–99; BMI 25.8
--- NOTE | 2025-06-17 11:17 | ECG_ITS ---
[facility] Test Date: 2025-06-17 Pat Name: INDIANA ZABALA Department: Room: - Gender: Male Lockstitcher: : 1940 Requested By: Order Number: [id number] Reading MD: SHIVA DÍAZ M.D. Measurements Intervals [place] Rate: 72 P: -[id number] GA: -19061 QRS: 60 QRSD: 96 T: 24 QT: 412 QTc: 437 Interpretive Statements 88673 Atrial fibrillation with aberrant conduction, or ventricular premature complexes 9140 abnormal rhythm ECG Compared to ECG 06/12/2025 18:23:09 Ventricular premature complex(es) now present Aberrant conduction of supraventricular beat(s) now present Electronically Signed On 06-17-2025 18:25:25 EDT by SHIVA DÍAZ M.D.
--- NOTE | 2025-06-17 11:17 | CT_ITS ---
The [address] [address] Patient Name: INDIANA ZABALA MRN: [id number] date: 1940 Sex: M Assigned Patient Location: ER Current Patient Location: ER Accession/Order Number: [id number] Exam Date: 06/17/2025 11:46 Report Date: 06/17/2025 11:48 At the request of: JESSI YAO MD Procedure: CT stroke head/brain wo con CT stroke head/brain wo con 06/17/2025 11:37 AM SIGNS AND SYMPTOMS: Altered mental status TECHNIQUE:Multi-detector CT axial slices of the brain were obtained without IV contrast. CT was performed with one or more of the following dose reduction techniques: Automated exposure control, adjustment of the mA and/or kV according to patient size, or use of iterative reconstruction technique. COMPARISON: 06/13/2025. FINDINGS: There is no shift of the midline structures, acute intracranial bleeding, mass effects, or evidence of acute ischemia. Benign-appearing mineralization is noted in the deep radiograph. There is age-related cortical atrophy with periventricular white matter hypoattenuation. Atherosclerotic changes are noted in the V4 segment of the right vertebral artery and intracranial segments of the internal carotid arteries. Stenosis and encephalomalacia is noted in the left parietal cortex consistent with a remote infarct. The ventricular system is normal in size. The brainstem and the cerebellum are unremarkable. The visualized intraorbital contents, the visualized paranasal sinuses, and the infratemporal soft tissues show no acute abnormality. The osseous structures in the skull base and the calvarium show no abnormality. CT/CT stroke head/brain wo con IMPRESSION: No acute intracranial pathology. There is a remote cortical infarct in the left parietal cortex. Additional chronic age-related neurodegenerative changes are redemonstrated as above. Impression dictated by: Antelmo Sinha M.D. 06/17/2025 11:48 AM Dictation Location: [facility] Electronically authenticated by: [id number] Y Date: 06/17/2025 11:48
--- OUTSIDE RECORDS SUMMARY | 2025-06-17 11:22 | XMS_ITS | Clinical Summary ---
Author Organization [employer] [facility] [employer] Address [id number] [address] [place] [address] Care Team Providers Care Optical Worker Name Role Phone Britt Mcneill PURCHASING ADMINISTRATOR-SILK SCREEN PRINTING RACKER Primary Care Provider + Encounters Date Type Department Care Team Description 06/13/2025 3:50 PM EDT Ancillary Procedure [facility] [address] [place] [phone] Pain 06/13/2025 Orders Only [facility] [place] [phone] Transcribe, Orders Support User Pain (Primary Dx) 06/12/2025 6:30 PM EDT - 06/16/2025 1:56 PM EDT Emergency [facility] [address] [place] [phone] Discharge Disposition: Telemedicine Discharge 06/12/2025 6:05 PM EDT Ancillary Procedure [facility] [address] [place] [phone] Pain 06/12/2025 Orders Only [facility] [place] [phone] External, Scanning Provider Pain (Primary Dx) from Last 3 Months Social History Tobacco Use Types Packs/Day Years Used Date Smoking Tobacco: Never Assessed Sex and Gender Information Value Date Recorded Sex Assigned at Not on file Legal Sex Male 1:53 AM EDT Gender Identity Not on file Sexual Orientation Not on file Plan of Treatment Health Maintenance Due Date Last Done Comments Depression Screening 1952 Tobacco Screening 1952 DTaP,Tdap and Td Vaccines (1 - Tdap) 1961 Fall Risk Screening 2007 Zoster (Shingles) Vaccine (2 of 3) 10/24/2013 08/29/2013 COVID-19 Vaccine (3 - 2023-2 5 season) 2025 09/29/2024, 08/19/2023 Influenza Vaccine 07/15/2025 09/29/2024, , 03/31/2021, Additional history exists Medical Devices Not on file Procedures Procedure Name Priority Date/Time Associated Diagnosis Comments MR BRAIN WO CONT Routine 06/13/2025 3:[address] BRAIN WO CONT STROKE ALERT STAT Reading 06/12/2025 6:05 PM EDT Pain from Last 3 Months Results * MR brain without contrast (06/13/2025 3:50 PM EDT) us Scanning Provider External IMG MRI ORDERABLES Fi nal Result * CT brain without contrast stroke alert (06/12/2025 6:05 PM EDT) us Scanning Provider External IMG CT ORDERABLES Fin al Result from Last 3 Months Insurance [employer] MEDICARE Care Teams Optical Worker Relationship Specialty Start Date End Date Britt Mcneill APRN-SILK SCREEN PRINTING RACKER [facility] [address] [place] [address] PCP - General Family Medicine 06/13/25
--- OUTSIDE RECORDS SUMMARY | 2025-06-17 11:22 | XMS_ITS | Encounter Summary ---
Author Organization [facility] Address [address] [place] [address] Care Team Providers Care Cartoonist Special Effects Name Role Phone Edwin Medina MD Primary Care Provider [phone] Encounter Details Date Type Department Care Team (Late st Contact Info) Description 11/19/2024 Abstract [facility] [address] [place] [address] Jack Alexander DO [address] [place] [address] Social History Tobacco Use Types Packs/Day Years Used Date Smoking Tobacco: Never Smokeless Tobacco: Never Sex and Gender Information Value Date Recorded Sex Assigned at Not on file Legal Sex Male 8:42 AM EDT Gender Identity Not on file Sexual Orientation Not on file documented as of this encounter Plan of Treatment Not on file documented as of this encounter Visit Diagnoses Not on filedocumented in this encounter Care Teams Cartoonist Special Effects Relationship Specialty Start Date End Date Edwin Medina MD [address] [place] [address] PCP - General Family Medicine 11/26/24 documented as of this encounter
--- OUTSIDE RECORDS SUMMARY | 2025-06-17 11:23 | XMS_ITS | Encounter Summary ---
Author Organization [facility] Address [id number] [address] [place] [address] Care Team Providers Care Customer Success Representative Name Role Phone Britt Mcneill APRN-AVELINA Primary Care Provider + Encounter Details Date Type Department Care Team (Late st Contact Info) Description 06/13/2025 Orders Only [facility] [address] [place] [phone] Transcribe, Orders Support User Pain (Primary Dx) Social History Tobacco Use Types Packs/Day Years Used Date Smoking Tobacco: Never Assessed Sex and Gender Information Value Date Recorded Sex Assigned at Not on file Legal Sex Male 1:53 AM EDT Gender Identity Not on file Sexual Orientation Not on file documented as of this encounter Plan of Treatment Not on file documented as of this encounter Results * MR brain without contrast (06/13/2025 3:50 PM EDT) us Scanning Provider External IMG MRI ORDERABLES Fi nal Result documented in this encounter Visit Diagnoses Diagnosis Pain- Primary Generalized pain documented in this encounter Care Teams Customer Success Representative Relationship Specialty Start Date End Date Britt Mcneill APRN-CNP [address] [place] [address] PCP - General Family Medicine 06/13/25 documented as of this encounter
--- OUTSIDE RECORDS SUMMARY | 2025-06-17 11:23 | XMS_ITS | Clinical Summary ---
Author Organization [facility] Address [address] [place] [address] Care Team Providers Care Parking Manager Name Role Phone Unavailable Primary Care Provider [...] myelopathy 2011 Overview (2011): Dr. Denis Adhikari, [facility], [facility]. 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 Not on file [...] 03/24/2015, 0 03/24/2015, 07/25/2014, Additional history exists Advance Directive Discussion 11/14/2024 Influenza Vaccine (#1) [...] - 100 mg/dL 03/24/2015 10:53 PM EDT [facility] BUN 15 10 - 25 mg/dL 03/24/2015 10:53 PM EDT [facility] Creatinine 1.10 0.70 - 1.40 mg/dL 03/24/2015 10:53 PM EDT [facility] Sodium 139 135 - 146 mmol/L 03/24/2015 10:53 PM EDT [facility] Potassium 4.5 3.5 - 5.0 mmol/L 03/24/2015 10:53 PM T [facility] Chloride 103 98 - 110 mmol/L 03/24/2015 10:53 PM T [facility] CO2 24 23 - 32 mmol/L 03/24/2015 10:53 PM T [facility] Anion Gap 12 0 - 15 mmol/L 03/24/2015 10:53 PM T [facility] Calcium 9.2 8.5 - 10.5 mg/dL 03/24/2015 10:53 PM [facility] eGFR- >60 03/24/2015 10:53 PM [facility] eGFR-All Other Races >60 . 03/24/2015 10:53 PM [facility] Comment: eGFR (Estimated GFR) Units [...] Addi Valdes MD LABORATORY Final Resu lt [facility] [address] [place] [address] * FECAL OCCULT BLOOD TEST (08/02/2014 12:04 PM EDT) Occult Blood, Stool Negative NEGAT [facility] Stool specimen (specimen) STOOL SPECIMEN / Unknown 08/02/2014 12:04 PM EDT 08/03/2014 8:05 AM EDT us Addi Valdes MD LABORATORY Final Resu lt Performing Organization Address City/[facility] Co de Phone Number [facility] [address] [place] [address] * COLONOSCOPY - DIAGNOSTIC (07/22/2011 8:11 AM EDT) Dress Cap Maker [facility] Dress Cap Maker Gastrointestinal Endoscopy [facility] Dress Cap Maker Patient Name: Dariel Aguilera [facility] Dress Cap Maker Procedure Date: 07/22/2011 8:11:16 AM [facility] Dress Cap Maker [facility] Dress Cap Maker Date of : 1940 [facility] Dress Cap Maker Admit Type: Ambulatory [facility] Dress Cap Maker Age: 71 [facility] Dress Cap Maker Gender: Male [facility] Dress Cap Maker Note Status: Finalized [facility] Dress Cap Maker Procedure: Colonoscopy [facility] Dress Cap Maker Indications: Screening for colorectal malignant neoplasm. Last [facility] Dress Cap Maker colonoscopy remote past. Please see recent office note [facility] Dress Cap Maker dated 04/05/11 for clinical details. [facility] Dress [facility] Providers: Chau Horan MD [facility] Referring Physician: Dr.V. Valdes [facility] Dress Cap Maker Medicines: Meperidine 60 mg IV, Midazolam 3.5 mg IV [facility] Complications: No immediate complications. [facility] Dress Cap Maker Requesting Provider: [facility] Dress Cap Maker Procedure: Pre-Anesthesia Assessment: [facility] Dress Cap [facility] - Respiratory Examination: clear to auscultation. [facility] Dress Cap Maker - CV Examination: RRR, no murmurs, no S3 or S4. [facility] Dress Cap Maker - Abdominal Examination: bowel sounds present, abdomen [facility] Dress Cap Maker soft and non-tender, no masses or organomegaly noted. [facility] Dress Cap Maker After I obtained informed consent, the scope was passed [facility] Dress Cap Maker under direct vision. Throughout the procedure, the [facility] Dress Cap Maker patient's blood pressure, pulse, and oxygen saturations [facility] Dress Cap Maker were monitored continuously. The Colonoscope was [facility] Dress Cap Maker introduced through the anus and advanced to the cecum, [facility] Dress Cap Maker identified by the ileocecal valve. The colonoscopy was [facility] Dress Cap Maker performed without difficulty. The patient tolerated the [facility] Dress Cap Maker procedure well. The quality of the bowel preparation was [facility] Dress Cap [facility] fair. [facility] Dress Cap Maker Findings: [facility] Dress Cap Maker Non-bleeding internal hemorrhoids were found during retroflexion and [facility] Dress Cap Maker during digital exam and were small. Multiple diverticula were found in [facility] Dress Cap Maker the proximal sigmoid colon and in the descending colon. The exam was [facility] Dress Cap Maker otherwise normal throughout the examined colon.There is no endoscopic [facility] Dress Cap Maker evidence of polyps in the entire colon. [facility] Dress Cap Maker Impression: - Preparation of the colon was fair. [facility] Dress Cap Maker - Non-bleeding internal hemorrhoids. [facility] Dress Cap Maker - Diverticulosis proximal sigmoid colon and descending [facility] Dress Cap Maker colon. [facility] Dress Cap Maker Recommendation: - Collect Hemoccults on three spontaneously passed [facility] Dress Cap Maker stools annually. [facility] Dress Cap Maker - Repeat colonoscopy in 10 years for screening purposes. [facility] Dress Cap Maker - Copy to Addi Valdes M.D. [facility] Dress Cap Maker Chau Horan MD [facility] Dress Cap Maker Chau Horan MD [facility] Dress Cap Maker 07/22/2011 8:38:04 AM [facility] Dress Cap Maker Number of Addenda: 0 [facility] Dress Cap Maker Note Initiated On: 07/22/2011 8:11:16 AM [facility] Anatomical Region Laterality Modality Other 07/22/2011 8:11 AM EDT us [facility] Provider [facility] Final Result from Last 3 Months or Most Recently Relevant to Health Maintenance Insurance [employer] BY [employer] O
--- OUTSIDE RECORDS SUMMARY | 2025-06-17 11:23 | XMS_ITS | Encounter Summary ---
Author Organization [facility] Address [id number] [address] [place] [address] Care Team Providers Care Senior Qa Engineer Name Role Phone Britt Mcneill APRN-PATIENT ACCESS COORDINATOR Primary Care Provider + Encounter Details Date Type Department Care Team (Late st Contact Info) Description 06/12/2025 Orders Only [facility] [place] [address] External, Scanning Provider Pain (Primary Dx) Social History Tobacco Use Types Packs/Day Years Used Date Smoking Tobacco: Never Assessed Sex and Gender Information Value Date Recorded Sex Assigned at Not on file Legal Sex Male 1:53 AM EDT Gender Identity Not on file Sexual Orientation Not on file documented as of this encounter Plan of Treatment Not on file documented as of this encounter Results * CT brain without contrast stroke alert (06/12/2025 6:05 PM EDT) us Scanning Provider External IMG CT ORDERABLES Fin al Result documented in this encounter Visit Diagnoses Diagnosis Pain- Primary Generalized pain documented in this encounter Care Teams Senior Qa Engineer Relationship Specialty Start Date End Date Britt Mcneill APRN-CNP [address] [place] [address] PCP - General Family Medicine 06/13/25 documented as of this encounter
--- OUTSIDE RECORDS SUMMARY | 2025-06-17 11:23 | XMS_ITS | Patient Health Record ---
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 [employer] Social History Tobacco Use: Social History Observation [...] Problem Neoplasm of uncertain behavior of skin (58371112) Neoplasm of uncertain behavior of skin (D48.5) Active confirmed Problem Thrombocytopenia (148962893) Thrombocytopenia, unspecified (D69.6) Active confirmed Problem Hypothyroidism (56936114) Hypothyroidism, unspecified (E03.9) Active confirmed Problem 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 (686587313) 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 (poly)neuropathy (E11.43) Active confirmed Problem Disorder due to type 2 diabetes mellitus (248508616) Type 2 diabetes mellitus with unspecified complications (E11.8) Active confirmed Problem Mild cognitive disorder (951323406) Mild cognitive impairment, so stated (G31.84) Active confirmed Problem Carpal tunnel syndrome (55768264) Carpal tunnel syndrome, left upper limb (G56.02) Active confirmed Problem Hordeolum externum (2120099) Hordeolum externum left upper eyelid (H00.014) Active confirmed Problem Chalazion (9242586) Chalazion left upper eyelid (H00.14) Active confirmed Problem Nuclear senile cataract (426599466) Age-related nuclear cataract, bilateral (H25.13) Active confirmed Problem Otitis externa (5887333) Unspecified otitis externa, unspecified ear (H60.90) Active confirmed Problem Actinic keratosis (819283) Actinic keratosis (L57.0) Active confirmed Problem Ingrowing nail (670724667) Ingrowing nail (L60.0) Active confirmed Problem Osteoarthritis (445091274) Unspecified osteoarthritis, unspecified site (M19.90) Active confirmed Problem Low back pain (492779211) Low back pain (M54.5) Active confirmed Problem Palpitations (98551302) Palpitations (R00.2) Active confirmed Problem Lower abdominal pain (68734822) Lower abdominal pain, unspecified (R10.30) Active confirmed Problem C-reactive protein abnormal (440797991) Elevated C-reactive protein (CRP) (R79.82) Active confirmed Problem Adult health examination (252185723) Encounter for general adult medical examination without abnormal findings (Z00.00) Active confirmed Problem Screening for malignant neoplasm of prostate (859055764) Encounter for screening for malignant neoplasm of prostate (Z12.5) Active confirmed Problem Counseling (238482374) Other specified counseling (Z71.89) Active confirmed Problem Hyperlipidemia (50555991) Hyperlipidemia, unspecified (E78.5) Active confirmed Problem Essential hypertension (20861052) Essential (primary) hypertension (I10) Active confirmed Problem Carpal tunnel syndrome (79406352) Carpal tunnel syndrome, bilateral upper limbs (G56.03) Active confirmed Problem Erectile dysfunction (685708487) Erectile Dysfunction (N52.9) Active confirmed Problem Vitamin D deficiency (10028958) Vitamin D deficiency (E55.9) Active confirmed Problem Atrial fibrillation (29048444) Atrial fibrillation (I48.91) Active confirmed continue current regimen of 5mg and 2.5mg every other day starting 11/21/20-CL K Problem Carotid bruit (027954421) Carotid bruit (R09.89) Active confirmed Problem Fatigue (90623155) Fatigue (R53.83) Active conf irmed Problem Nephrolithiasis (61790246) Nephrolithiasis (N20.0) Active confirmed Problem Cholelithiasis (103649573) Cholelithiasis (K80.20) Active confirmed Problem Carotid artery stenosis (59443499) CAROTID STENOSIS (I65.29) Active confirmed Problem Lumbar spondylosis (245515186) Lumbar spondylosis (M47.817) 020 Active confirmed Med HEDIS WAS DONE,unco ntrolled Problem Hyperglycemia due to type 2 diabetes mellitus (749256578801336) Type 2 diabetes mellitus with hyperglycemia (E11.65) Active confirmed Problem Vitamin B12 deficiency (410295581) Vitamin B12 deficiency (D51.9) Active confirmed Problem Hearing loss (23551457) Hearing loss (H91.90) Active confirmed Problem Memory loss (07377845) Memory loss (R41.3) Active confirmed Problem Lower urinary tract symptoms due to benign prostatic hypertrophy (86061918363549) Benign prostatic hyperplasia with lower urinary tract symptoms (N40.1) Active confirmed Problem Hyperlipidemia (81155123) Hyperlipidemia, unspecified (E78.5) Active confirmed Problem Gastroesophageal reflux disease (546891498) Gastroesophageal reflux disease (K21.9) Active confirmed Problem Hearing loss (disorder) (79086058) Hearing loss (disorder) (H91.90) Active confirmed Problem Carpal tunnel syndrome (disorder) (99108336) Carpal tunnel syndrome (disorder) (G56.00) Active confirmed Problem Pre-surgery evaluation (360784952) Pre-operative examination, unspecified (Z01.818) Active confirmed Problem Impacted cerumen (00836857) Impacted cerumen (H61.20) Active confirmed Problem Depression Screening (128693127) Encounter for screening for depression (Z13.31) Active confirmed Problem COVID-19 (033198942) COVID-19 (U07.1) Active confirmed Plan Of Treatment Pending Test Test Name Order Date ADVANCED CARE PLANNING 07/07/2021 *EAR Lavage 11/21/2020 *EAR Lavage 09/05/2020 TSH+FREE T4 03/03/2021 TSH+FREE T4 05/29/2021 TSH+FREE T4 12/19/2019 TSH+FREE T4 02/16/2022 TSH+FREE T4 10/19/2021 TSH+FREE T4 01/15/2022 LIPID PANEL WITH REFLEX TO DIRECT LDL LIPID PANEL WITH REFLEX TO DIRECT LDL LIPID PANEL WITH REFLEX TO DIRECT LDL LIPID PANEL WITH REFLEX TO DIRECT LDL LIPID PANEL WITH REFLEX TO DIRECT LDL LIPID PANEL WITH REFLEX TO DIRECT LDL THYROID PEROXIDASE AND THYROGLOBULIN ANT IBODIES 03/03/2021 THYROID PEROXIDASE AND THYROGLOBULIN ANT IBODIES 05/29/2021 THYROID PEROXIDASE AND THYROGLOBULIN ANT IBODIES 02/16/2022 THYROID PEROXIDASE AND THYROGLOBULIN ANT IBODIES 10/19/2021 THYROID PEROXIDASE AND THYROGLOBULIN ANT IBODIES 01/15/2022 COMPREHENSIVE METABOLIC PANEL (REFL) 04/2021 COMPREHENSIVE METABOLIC PANEL (REFL) 03/2022 COMPREHENSIVE METABOLIC PANEL (REFL) COMPREHENSIVE METABOLIC PANEL (REFL) 02/2022 COMPREHENSIVE METABOLIC PANEL (REFL) COMPREHENSIVE METABOLIC PANEL 12/19/2019 MAGNESIUM 12/19/2019 MAGNESIUM 02/16/2022 MAGNESIUM 10/19/2021 MAGNESIUM 01/15/2022 MAGNESIUM 05/29/2021 MAGNESIUM 03/03/2021 CBC (INCLUDES DIFF/PLT) 03/03/2021 CBC (INCLUDES DIFF/PLT) 05/29/2021 CBC (INCLUDES DIFF/PLT) 01/15/2022 CBC (INCLUDES DIFF/PLT) 02/16/2022 CBC (INCLUDES DIFF/PLT) 12/19/2019 CBC (INCLUDES DIFF/PLT) 10/19/2021 C-REACTIVE PROTEIN 12/19/2019 HS CRP 02/16/2022 HS CRP 01/15/2022 HS CRP 03/31/2021 HS CRP 10/19/2021 HS CRP 05/29/2021 HEMOGLOBIN A1c 05/29/2021 HEMOGLOBIN A1c 10/19/2021 HEMOGLOBIN A1c 01/15/2022 HEMOGLOBIN A1c 02/16/2022 HEMOGLOBIN A1c 12/19/2019 VITAMIN B12/FOLATE, SERUM PANEL 12/19/19 20 VITAMIN B12/FOLATE, SERUM PANEL 02/17/20 22 VITAMIN B12/FOLATE, SERUM PANEL 10/19/20 21 VITAMIN B12/FOLATE, SERUM PANEL 05/29/20 21 VITAMIN B12/FOLATE, SERUM PANEL 01/16/20 22 VITAMIN B12/FOLATE, SERUM PANEL 03/03/20 21 T3, FREE 05/29/2021 T3, FREE 03/03/2021 T3, FREE 10/19/2021 T3, FREE 01/15/2022 T3, FREE 02/16/2022 T3, FREE 12/19/2019 VITAMIN D,25-OH,TOTAL,IA 12/19/2019 VITAMIN D,25-OH,TOTAL,IA 02/16/2022 VITAMIN D,25-OH,TOTAL,IA 01/15/2022 VITAMIN D,25-OH,TOTAL,IA 10/19/2021 VITAMIN D,25-OH,TOTAL,IA 03/03/2021 VITAMIN D,25-OH,TOTAL,IA 05/29/2021 TISSUE PATHOLOGY 08/28/2020 *MSE-MEMORY TEST 12/07/2019 *Cryosurgery 15 or more 09/17/2020 *Cryosurgery 15 or more 12/19/2019 *Cryosurgery 15 or more 11/20/2021 *Cryosurgery 15 or more 05/26/2022 *Biopsy 1st 12/19/2019 *PT/INR 11/20/2021 *PT/INR 12/18/2021 *PT/INR 01/28/2021 *Urine Microalbumin 12/18/2021 *Creatine 12/18/2021 *Annual Depresion Screening 12/19/2020 *Annual Depresion Screening 12/07/2019 *[facility] ANNUAL WELLNESS VISIT 04/29/2020 *Digital Prostate Exam [...] Coverage End Date [employer] [address] [address] [place] [address] [phone] [id number] Dariel Aguilera Self - patient is the [...]
--- OUTSIDE RECORDS SUMMARY | 2025-06-17 11:24 | XMS_ITS | Clinical Summary ---
Author Organization [facility] Address [address] [facility], [address] [place] [address] Care Team Providers Care Tire Recapper Name Role Phone Jules Soledad SALESPERSON HOSIERY - PIPE CLEANER Primary Care Provider [phone] Allergies No known active allergies Medications gabapentin (NEURONTIN) 300 MG capsule Take 1 capsule by mouth daily. Active glimepiride (AMARYL) 2 MG tablet Take 1 tablet by mouth every morning (before breakfast) Active levothyroxine (SYNTHROID) 25 MCG tablet Take 1 tablet by mouth Daily Active pravastatin (PRAVACHOL) 40 MG tablet Take 1 tablet by mouth daily Active tamsulosin (FLOMAX) 0.4 MG capsule Take 1 capsule by mouth daily Active warfarin (COUMADIN) 5 MG tablet Take 1 tablet by mouth daily Tuesday, Tuesday, Active finasteride (PROSCAR) 5 MG tablet Take 1 tablet by mouth daily Active atenolol (TENORMIN) 25 MG tablet Take 1 tablet by mouth daily Active coenzyme Q-10 100 MG capsule Take 1 capsule by mouth daily Active b complex vitamins capsule Take 1 capsule by mouth daily Active omeprazole (PRILOSEC) 20 MG delayed release capsule Take 2 capsules by mouth daily Active lisinopril (PRINIVIL;ZEST RIL) 10 MG tablet Take 1 tablet by mouth daily 30 tablet 1 5 Active urea (URE-NA) 15 g PACK packet Take 15 g by mouth daily 30 each 5 025 Active urea (URE-NA) 15 g PACK packet Take 15 g by mouth daily 30 each 3 5 Active urea (URE-NA) 15 g PACK packet Take 15 g by mouth daily 30 each 2 5 Active urea (URE-NA) 15 g PACK packet Take 15 g by mouth daily 30 each 2 Active warfarin (COUMADIN) 2.5 MG tablet Take 1 tablet by mouth daily Tuesday, Tuesday, , Tuesday Discontinu ed(Stop Taking at Discharge) SODIUM CHLORIDE PO Take 1,000 mg by mouth 3 times daily Discontinu ed(Stop Taking at Discharge) cyclobenzaprin e (FLEXERIL) 10 MG tablet Take 1 tablet by mouth 3 times daily as needed for Muscle spasms Discontinu ed(Stop Taking at Discharge) sildenafil (VIAGRA) 100 MG tablet Take 1 tablet by mouth as needed for Erectile Dysfunction Discontinu ed(Stop Taking at Discharge) cephALEXin (KEFLEX) 500 MG capsule Take 1 capsule by mouth every 8 hours for 4 days 12 capsule 5 Active Problems Problem Noted Date Diagnosed Date SIADH (syndrome of inappropriate ADH production) 06/05/2025 History of hypothyroidism 06/05/2025 Toxic metabolic encephalopathy 06/04/2025 Fracture of nasal bones, ini tial encounter for closed fracture 06/02/2025 Epistaxis 06/02/2025 Essential hypertension 06/02/2025 Benign prostatic hyperplasia 06/02/2025 Carotid artery occlusion 06/02/2025 Diabetes mellitus 06/02/2025 Hypothyroidism (acquired) 06/02/2025 Secondary hypercoagulable state 06/02/2025 Anticoagulated on Coumadin 06/02/2025 Hyponatremia 06/02/2025 Atrial fibrillation 08/22/2014 Generalized osteoarthritis 09/12/2012 Cervical disc disease with myelopathy 2011 Overview (06/02/2025): Dr. Denis Adhikari, [facility] Neuro[facility] Encounters Date Type Department Care Team Description 06/02/2025 10:01 AM EDT - 06/05/2025 6:50 PM EDT Hospital Encounter [facility] [address] [place] [id number] Jack Monet, Jermaine Anna, Beto Fowler DO Avasthi, Salil, MD Hyponatremia (Primary Dx) Discharge Disposition: Home or Self Care 06/02/2025 Travel 06/02/2025 Direct Admit Orders [place] [id number] [place] [id number] Leelee Easley APRN - GAME OPERATOR from Last 3 Months Social History Tobacco Use Types Packs/Day Years Used Date Smoking Tobacco: Never Smokeless Tobacco: Never Tobacco Cessation:Counseling Given: Not Answered Alcohol Use Standard Drinks/Week Comments Never 0 (1 standard drink = 0.6 oz pur e alcohol) [facility] Utilities Answer Date Recorded In the past 12 months has th e electric, gas, oil, or water company threatened to shut off services in your home? No 06/02/2025 Hunger Vital Sign Answer Date Recorded Within the past 12 months, y ou worried that your food would run out before you got the money to buy more. Never true 06/02/20 25 Within the past 12 months, t he [...] any time in the past 12 m [facility], were you homeless or living in a fdc (including now)? No 06/02/2025 Food Insecurity Answer [...] on file Sexual Orientation Not on file Last Filed Vital Signs [...] Mass Index 26.48 06/02/2025 10:06 AM EDT Plan of Treatment Health Maintenance Due Date Last Done Comments Lipids 1952 Depression Screen 1954 Diabetic Alb to Cr ratio (uACR) test 1960 DTaP/Tdap/Td vaccine (1 - Tdap) 1961 Shingles vaccine (2 of 3) 10/24/2013 08/29/2013 Respiratory Syncytial Virus (RSV) or age 60 yrs+ (1 - 1-dose 75+ series) 2017 Annual Wellness Visit (Medicare Advantage) 11/14/2024 COVID-19 Vaccine (3 - season) 2025 09/29/2024, 08/19/2023 Flu vaccine (#1) 06/14/2025 09/29/2024, 04/2023, 07/16/2017, Additional history exists GFR test (Diabetes, CKD 3-4, OR last GFR 15-59) 06/05/2026 06/05/2025, 06/04/2025, 06/04/2025, Additional history exists Pneumococcal 50+ years Vaccine Completed 09/21/2023, 06/11/2017, 03/31/2015 Hepatitis A vaccine Aged Out No longe r eligible based on patient's age to complete this topic Hepatitis B vaccine Aged Out No longe r eligible based on patient's age to complete this topic Hib vaccine Aged Out No longer eligi ble based on patient's age to complete this topic Meningococcal (ACWY) vaccine Aged Out No longer eligible based on patient's age to complete this topic Meningococcal B vaccine Aged Out No l onger eligible based on patient's age to complete this topic Polio vaccine Aged Out No longer elig ible based on patient's age to complete this topic Procedures Procedure Name Priority Date/Time Associated Diagnosis [...] LOW K Timed 06/04/2025 2:08 AM EDT POCT GLUCOSE Routine 06/04/2025 2:02 AM EDT LACTIC ACID,POINT OF CARE Routine 06/04/2025 2:02 AM EDT UREA N (POC) Routine 06/04/2025 2:02 AM EDT CREATININE W/GFR POINT OF CARE Routine 06/04/2025 2:02 AM EDT ARTERIAL BLOOD GAS, POC Routine 06/04/2025 2:02 AM EDT CALCIUM, IONIC (POC) Routine 06/04/2025 2:02 AM EDT HGB/HCT Routine 06/04/2025 2:02 AM EDT ELECTROLYTES PLUS Routine 06/04/2025 2:0 2 AM EDT SODIUM, URINE, RANDOM [facility] Label Print 06/04/2025 1:00 AM EDT OSMOLALITY, URINE [facility] Label Print 06/04/2025 1:00 AM EDT BASIC METABOLIC PANEL W/ REFLEX TO MG FOR LOW K Timed 06/04/2025 12:24 AM EDT POC GLUCOSE FINGERSTICK Routine 06/03/2025 8:06 PM EDT OSMOLALITY STAT 06/03/2025 6:43 PM EDT PREVIOUS SPECIMEN STAT 06/03/2025 6:4 3 PM EDT ELECTROLYTE PANEL STAT 06/03/2025 6:4 3 PM EDT POC GLUCOSE FINGERSTICK Routine 06/03/2025 4:51 PM EDT POC GLUCOSE FINGERSTICK Routine 06/03/2025 11:07 AM EDT ELECTROLYTE PANEL STAT 06/03/2025 8:2 9 AM EDT POC GLUCOSE FINGERSTICK Routine 06/03/2025 7:46 AM EDT PROTIME-INR Routine 06/03/2025 6:18 AM EDT CBC WITH AUTO DIFFERENTIAL Routine 06/03/2025 6:18 AM EDT BASIC METABOLIC PANEL W/ REFLEX TO MG FOR LOW K Routine 06/03/2025 6:18 AM EDT POC GLUCOSE FINGERSTICK Routine 06/02/2025 7:56 PM EDT POC GLUCOSE FINGERSTICK Routine 06/02/2025 4:13 PM EDT POC GLUCOSE FINGERSTICK Routine 06/02/2025 1:48 PM EDT CBC WITH AUTO DIFFERENTIAL Routine 06/02/2025 1:08 PM EDT BASIC METABOLIC PANEL W/ REFLEX TO MG FOR LOW K Routine 06/02/2025 1:08 PM EDT PROTIME-INR Routine 06/02/2025 1:08 PM EDT from Last 3 Months Results * (ABNORMAL) POC Glucose Fingerstick (06/05/2025 11:48 AM EDT) Only the most recent of14 resultswithin the time period is included. POC Glucose 145(H) 75 - 110 mg/dL 06/05/2025 11:48 AM EDT [facility] 06/05/2025 11:4 8 AM EDT 06/05/2025 11:55 AM EDT us Flaco Alfaro MD POINT OF CARE TEST ORDERABLES F inal Result [facility] [address] [phone] * (ABNORMAL) Electrolyte Panel (06/05/2025 10:43 AM EDT) Only the most recent of6 resultswithin the time period is included. Sodium 127(L) 136 - 145 mmol/L 06/05/2025 10:43 AM EDT [facility] Potassium 4.4 3.7 - 5.3 mmol/L 06/05/2025 10:43 AM EDT [facility] Comment: Specimen hemolysis has exceeded the interference as defined by Sindy. Value may be falsely increased. Suggest recollection if clinically indicated. Chloride 92(L) 98 - 107 mmol/L 06/05/2025 10:43 AM EDT [facility] CO2 19(L) 20 - 31 mmol/L 06/05/2025 10:43 AM EDT [facility] Anion Gap 16 9 - 16 mmol/L 06/05/2025 10:43 AM EDT [facility] Blood BLOOD SPECIMEN / Unknown 06/05/2025 10:43 AM EDT 06/05/2025 2:35 PM EDT Deann Carter MD CHEMISTRY ORDERABLES Final Resul t Performing Organization Address [facility] de Phone Number [facility] [address] [place] [address] * (ABNORMAL) Protime-INR (06/05/2025 4:49 AM EDT) Only the most recent of4 resultswithin the time period is included. Protime 22.4(H) 11.7 - 14.9 sec 06/05/2025 4:49 AM EDT [facility] INR 1.9 06/05/2025 4:49 AM EDT [facility] Comment: Therapeutic Range: Moderate Anticoagulant Intensity: INR = 2.0-3.0 High Anticoagulant Intensity: INR = 2.5-3.5 Blood BLOOD SPECIMEN / Unknown 06/05/2025 4:49 AM EDT 06/05/2025 4:52 AM EDT Adore Cueto APRN - PIPE CLEANER HEMATOLOGY ORDERABLES Fi nal Result Performing Organization Address [facility] de Phone Number [facility] [address] [place] [address] * (ABNORMAL) Basic Metabolic Panel (06/05/2025 4:49 AM EDT) Sodium 126(L) 136 - 145 mmol/L 06/05/2025 4:49 AM EDT [facility] Potassium 4.5 3.7 - 5.3 mmol/L 06/05/2025 4:49 AM EDT [facility] Comment: Specimen hemolysis has exceeded the interference as defined by Sindy. Value may be falsely increased. Suggest recollection if clinically indicated. Chloride 95(L) 98 - 107 mmol/L 06/05/2025 4:49 AM EDT [facility] CO2 19(L) 20 - 31 mmol/L 06/05/2025 4:49 AM EDT [facility] Anion Gap 12 9 - 16 mmol/L 06/05/2025 4:49 AM EDT [facility] Glucose 112(H) 74 - 99 mg/dL 06/05/2025 4:49 AM EDT [facility] BUN 13 8 - 23 mg/dL 06/05/2025 4:49 AM EDT [facility] Creatinine 0.8 0.7 - 1.2 mg/dL 06/05/2025 4:49 AM EDT [facility] Est, Glom Filt Rate 88 >60 mL/min/1. 73m2 06/05/2025 4:49 AM EDT [facility] Comment: These results are not intended for [...] - 10.4 mg/dL 06/05/2025 4:49 AM EDT [facility] Blood BLOOD SPECIMEN / Unknown 06/05/2025 4:49 AM EDT 06/05/2025 4:52 AM EDT [facility] DO CHEMISTRY ORDERABLES Final R esult [facility] [address] [place] [address], [facility] [phone] * (ABNORMAL) Basic Metabolic Panel w/ Reflex to MG (06/04/2025 10:09 AM EDT) Only the most recent of8 resultswithin the time period is included. Sodium 118(LL) 136 - 145 mmol/L 06/04/2025 10:09 AM EDT [facility] Potassium 4.8 3.7 - 5.3 mmol/L 06/04/2025 10:09 AM EDT [facility] Comment: Specimen hemolysis has exceeded the interference as defined by Sindy. Value may be falsely increased. Suggest recollection if clinically indicated. Chloride 87(L) 98 - 107 mmol/L 06/04/2025 10:09 AM EDT [facility] CO2 21 20 - 31 mmol/L 06/04/2025 10:09 AM EDT [facility] Anion Gap 10 9 - 16 mmol/L 06/04/2025 10:09 AM EDT [facility] Glucose 107(H) 74 - 99 mg/dL 06/04/2025 10:09 AM EDT [facility] BUN 11 8 - 23 mg/dL 06/04/2025 10:09 AM EDT [facility] Creatinine 0.7 0.7 - 1.2 mg/dL 06/04/2025 10:09 AM EDT [facility] Est, Gl[place] Filt Rate >90 >60 mL/min/1. 73m2 06/04/2025 10:09 AM EDT [facility] Comment: These results are not intended for [...] - 10.4 mg/dL 06/04/2025 10:09 AM EDT [facility] Blood BLOOD SPECIMEN / Unknown 06/04/2025 10:09 AM EDT 06/04/2025 10:18 AM EDT us José Good MD CHEMISTRY ORDERABLES Final Resu lt JR [facility] [address] [place] [address], [facility] [phone] * CT HEAD WO CONTRAST (06/04/2025 4:13 [...] intracranial abnormality. 2. Acute right maxillary sinusitis. Result [facility] us Bisi Vaughn MD IMG CT ORDERABLES Final Result * TSH (06/04/2025 3:39 AM EDT) [facility] TSH 2.95 0.27 - 4.20 uIU/mL 06/04/2025 3:39 AM EDT [facility] Blood BLOOD SPECIMEN / Unknown 06/04/2025 3:39 AM EDT 06/04/2025 4:16 AM EDT Result [facility] us Bisi Vaughn MD CHEMISTRY ORDERABLES Final Resu lt Performing Organization Address [facility]/ZIP Co de Phone Number [facility] [address] [place] [address], [facility] [phone] * T4, Free (06/04/2025 3:39 AM EDT) [facility] T4 Free 1.5 0.92 - 1.68 ng/dL 06/04/2025 3:39 AM EDT [facility] Blood BLOOD SPECIMEN / Unknown 06/04/2025 3:39 AM EDT 06/04/2025 4:16 AM EDT Result [facility] us Bisi Vaughn MD CHEMISTRY ORDERABLES Final Resu lt Performing Organization Address [facility] Co de Phone Number [facility] [address] [place] [address], [facility] [phone] * Cortisol Total (06/04/2025 3:39 AM EDT) [facility] Cortisol 11.7 2.5 - 19.5 ug/dL 06/04/2025 3:39 AM EDT [facility] Comment: Cortisol Reference Range: AM 6.0-18.4 PM 2.7-10.5 Blood BLOOD SPECIMEN / Unknown 06/04/2025 3:39 AM EDT 06/04/2025 4:16 AM EDT us Bisi Vaughn MD CHEMISTRY ORDERABLES Final Resu lt [facility] [address] [place] [address], [facility] [phone] * Lactic Acid, POC (06/04/2025 2:02 AM EDT) POC Lactic Acid 0.8 0.56 - 1.39 mmol/L 06/04/2025 2:[address] [email or web address] 06/04/2025 2:02 AM EDT 06/04/2025 2:05 AM EDT [facility] POINT OF CARE TEST ORDERABLE S Final Result Performing Organization Address [facility] Phone Number [facility] [address] [place] [address], [facility] [phone] * Creatinine W/GFR Point of Care (06/04/2025 2:02 AM EDT) Pathologist [facility] POC Creatinine 0.7 0.51 - 1.19 mg/dL 06/04/2025 2:02 AM EDT [facility] eGFR, POC >90 >60 mL/min/1. 73m2 06/04/2025 2:02 AM EDT [facility] Comment: These results are not intended for [...] 2:02 AM EDT 06/04/2025 2:05 AM EDT [facility] POINT OF CARE TEST ORDERABLE S Final Result Performing Organization Address [facility]/ZIP Co de Phone Number [facility] [address] [place] [address], [facility] [phone] * Arterial Blood Gas, POC (06/04/2025 2:02 AM EDT) [facility] POC pH 7.412 7.350 - 7.450 06/04/2025 2:02 AM EDT [facility] POC pCO2 38.6 35.0 - 48.0 mm Hg 06/04/2025 2:02 AM EDT [facility] POC PO2 91.7 83.0 - 108.0 mm Hg 06/04/2025 2:02 AM EDT [facility] POC HCO3 24.6 21.0 - 28.0 mmol/L 06/04/2025 2:02 AM EDT [facility] Positive Base Excess, Art 0.1 0.0 - 3.0 mmol/L 06/04/2025 2:02 AM EDT [facility] POC O2 SAT 97.2 94.0 - 98.0 % 06/04/2025 2:02 AM EDT [facility] O2 Delivery Device Room Air 06/04/2025 2:02 AM EDT [facility] Sample Site Right Radial Artery 06/04/2025 2:[address] [email or web address] 06/04/2025 2:02 AM EDT 06/04/2025 2:05 AM EDT us Beto Hedrick DO POINT OF CARE TEST ORDERABLE S Final Result Performing Organization Address City/[facility]/[place] [address], [facility] [phone] * CALCIUM, IONIC (POC) (06/04/2025 2:02 AM EDT) [facility] POC Ionized Calcium 1.18 1.15 - 1.33 mmol/L 06/04/2025 2:[address] [email or web address] 06/04/2025 2:02 AM EDT 06/04/2025 2:05 AM EDT us Beto Hedrick DO CHEMISTRY ORDERABLES Final R esult Performing Organization Address City/[facility]/[place] [address], [facility] [phone] * (ABNORMAL) ELECTROLYTES PLUS (06/04/2025 2:02 AM EDT) [facility] POC Sodium 123(L) 138 - 146 mmol/L 06/04/2025 2:02 AM EDT [facility] POC Potassium 3.9 3.5 - 4.5 mmol/L 06/04/2025 2:02 AM EDT [facility] POC Chloride 89(L) 98 - 107 mmol/L 06/04/2025 2:02 AM EDT [facility] POC TCO2 23 22 - 30 mmol/L 06/04/2025 2:02 AM EDT [facility] POC Anion Gap 12 7 - 16 mmol/L 06/04/2025 2:02 AM EDT [facility] 06/04/2025 2:02 AM EDT 06/04/2025 2:05 AM EDT us Beto Hedrick DO CHEMISTRY ORDERABLES Final R esult Performing Organization Address City/[facility]/[place] [address], [facility] [phone] * POCT urea (BUN) (06/04/2025 2:02 AM EDT) [facility] POC BUN 11 8 - 26 mg/dL 06/04/2025 2:[address] [email or web address] 06/04/2025 2:02 AM EDT 06/04/2025 2:05 AM EDT [facility] POINT OF CARE TEST ORDERABLE S Final Result Performing Organization Address City/[facility]/[place] [address], [facility] [phone] * (ABNORMAL) Hemoglobin and hematocrit, blood (06/04/2025 2:02 AM EDT) [facility] POC Hemoglobin (calc) 12.3(L) 13.5 - 17.5 g/dL 06/04/2025 2:02 AM EDT [facility] POC Hematocrit 36(L) 41 - 53 % 06/04/2025 2:[address] [facility] 06/04/2025 2:02 AM EDT 06/04/2025 2:05 AM EDT us Beto Hedrick DO HEMATOLOGY ORDERABLES Final Result Performing Organization Address [facility] de Phone Number [facility] [address] [place] [address], [facility] [phone] * POCT Glucose (06/04/2025 2:02 AM EDT) POC Glucose 81 74 - 100 mg/dL 06/04/2025 2:[address] [email or web address] 06/04/2025 2:02 AM EDT 06/04/2025 2:05 AM EDT us Beto Hedrick DO POINT OF CARE TEST ORDERABLE S Final Result Performing Organization Address [facility] Phone Number [facility] [address] [place] [address], [facility] [phone] * Sodium, urine, random (06/04/2025 1:00 AM EDT) Sodium, Ur 159 mmol/L 06/04/2025 1:00 AM EDT [facility] Comment:No normal range esta blished. 06/04/2025 1:00 AM EDT 06/04/2025 1:25 AM EDT us Beto Hedrick DO URINE ORDERABLES Final Resul t Performing Organization Address [facility] de Phone Number [facility] [address] [place] [address], [facility] [phone] * Osmolality, Urine (06/04/2025 1:00 AM EDT) Osmolality, Ur 590 80 - 1300 mOsm/kg 06/04/2025 1:00 AM EDT [facility] 06/04/2025 1:00 AM EDT 06/04/2025 1:25 AM EDT [facility] DO URINE ORDERABLES Final Resul t Performing Organization Address [facility] [place] [address], [facility] [phone] * PREVIOUS SPECIMEN (06/03/2025 6:43 PM EDT) 06/03/2025 6:43 PM EDT 06/03/2025 6:49 PM EDT [facility] DO CHEMISTRY ORDERABLES Final R esult Performing Organization Address [facility] [place] [address], [facility] [phone] * (ABNORMAL) Osmolality (06/03/2025 6:43 PM EDT) Pathologist [facility] Serum Osmolality 251(L) 275 - 295 mOsm/kg 06/03/2025 6:43 PM EDT [facility] 06/03/2025 6:43 PM EDT 06/03/2025 7:00 PM EDT [facility] CHEMISTRY ORDERABLES Final R esult Performing Organization Address [facility] de Phone Number [facility] [address] [place] [address], [facility] [phone] * (ABNORMAL) CBC with Auto Differential (06/03/2025 6:18 AM EDT) Only the most recent of2 resultswithin the time period is included. WBC 7.2 3.5 - 11.3 k/uL 06/03/2025 6:18 AM EDT [facility] RBC 3.98(L) 4.21 - 5.77 m/uL 06/03/2025 6:18 AM EDT [facility] Hemoglobin 12.3(L) 13.0 - 17.0 g/dL 06/03/2025 6:18 AM EDT [facility] Hematocrit 35.2(L) 40.7 - 50.3 % 06/03/2025 6:18 AM EDT [facility] MCV 88.4 82.6 - 102.9 fL 06/03/2025 6:18 AM EDT [facility] MCH 30.9 25.2 - 33.5 pg 06/03/2025 6:18 AM EDT [facility] MCHC 34.9(H) 28.4 - 34.8 g/dL 06/03/2025 6:18 AM EDT [facility] RDW 13.0 11.8 - 14.4 % 06/03/2025 6:18 AM EDT [facility] Platelets See Reflexed IPF Result 138 - 453 k/uL 06/03/2025 6:18 AM EDT [facility] Platelet, Fluorescence 132(L) 138 - 453 k/uL 06/03/2025 6:18 AM EDT [facility] Platelet, Immature Fraction 5.3 1.1 - 10.3 % 06/03/2025 6:18 AM EDT [facility] NRBC Automated 0.0 0.0 per 100 WBC 06/03/2025 6:18 AM EDT [facility] Neutrophils % 64 36 - 65 % 06/03/2025 6:18 AM EDT [facility] Lymphocytes % 23(L) 24 - 43 % 06/03/2025 6:18 AM EDT [facility] Monocytes % 11 3 - 12 % 06/03/2025 6:18 AM EDT [facility] Eosinophils % 1 1 - 4 % 06/03/2025 6:18 AM EDT [facility] Basophils % 1 0 - 2 % 06/03/2025 6:18 AM EDT [facility] Immature Granulocytes % 0 0 % 06/03/2025 6:18 AM EDT [facility] Neutrophils Absolute 4.63 1.50 - 8.10 k/uL 06/03/2025 6:18 AM EDT [facility] Lymphocytes Absolute 1.68 1.10 - 3.70 k/uL 06/03/2025 6:18 AM EDT [facility] Monocytes Absolute 0.80 0.10 - 1.20 k/uL 06/03/2025 6:18 AM EDT [facility] Eosinophils Absolute 0.08 0.00 - 0.44 k/uL 06/03/2025 6:18 AM EDT [facility] Basophils Absolute 0.04 0.00 - 0.20 k/uL 06/03/2025 6:18 AM EDT [facility] Immature Granulocytes Absolute <0.03 0.00 - 0.30 k/uL 06/03/2025 6:18 AM EDT [facility] Blood BLOOD SPECIMEN / Unknown 06/03/2025 6:18 AM EDT 06/03/2025 6:46 AM EDT us Adore Rom SALESPERSON HOSIERY - PIPE CLEANER HEMATOLOGY ORDERABLES Fi nal Result Performing Organization Address City/State/[facility] Co de Phone Number [facility] [address] [id number], [facility] [phone] from Last 3 Months Insurance [employer] MEDICARE Advance Directives * Full Code (Latest Code Status on File) Date Activated Date Inactivated Comments 06/02/2025 12:05 PM 06/05/2025 9:24 PM Care Teams Tire Recapper Relationship Specialty Start Date End Date Soledad Vicente APRN - NP [address] [place] [address] PCP - General 06/05/25
--- NOTE | 2025-06-17 11:46 | ED.AMS1 ---
HPI - Altered Mental Status General Chief Complaint: Altered Mental Status Stated Complaint: altered mental status Time Seen by Provider: 06/17/25 11:16 Source: patient Mode of arrival: Wheelchair History of Present Illness HPI narrative: The patient is 85-year-old male is coming to the ER after he was evaluated by the staff in the Coumadin clinic for having a new neurological symptoms, as per the who is at the bedside at 10:45 AM she brought him here to be evaluated for his appointment in the Coumadin clinic, by the time he got into the clinic he was not speaking or acting normally. The patient walked into the clinic and they did notice that he have some right-sided weakness I did evaluate the patient before he usually is talkative and able to communicate and right now he is not speaking he just looking around in the room and not following any commands The patient is not following command but he is able to lift his left arm and right arm sporadically as well as the left leg but the right leg he was not able to lift against gravity. As per the he went to sleep yesterday with no complaint and he was speaking with her in their way to the hospital as well Related Data Home Medications ?Medication ?Instructions ?Recorded ?Confirmed glimepiride 2 mg tablet 2 mg PO DAILY 08/21/23 06/12/25 levothyroxine 25 mcg tablet 25 mcg PO QAM 08/21/23 06/12/25 pravastatin 40 mg tablet 40 mg PO DAILY 08/21/23 06/12/25 tamsulosin 0.4 mg capsule 0.4 mg PO DAILY 08/21/23 06/12/25 warfarin 5 mg tablet (Jantoven) 5 mg PO MOWEFRSA@1700 08/21/23 06/13/25 warfarin 2.5 mg tablet (Jantoven) 2.5 mg PO SUTUTH@1700 08/22/23 06/13/25 finasteride 5 mg tablet 5 mg PO DAILY 11/13/23 06/12/25 coenzyme Q10 100 mg capsule (Co 100 mg PO DAILY 08/13/24 06/12/25 Q-10) gabapentin 300 mg capsule 300 mg PO DAILY 08/13/24 06/12/25 vitamin B complex (B-Complex 1 tab PO DAILY 08/13/24 06/12/25 tablet) omeprazole 40 mg capsule,delayed 40 mg PO .QD 06/12/25 06/13/25 release atenolol 25 mg tablet 12.5 mg PO DAILY 06/13/25 06/13/25 Previous Rx's ?Medication ?Instructions ?Recorded aspirin 81 mg tablet,delayed 81 mg PO QD 5 days #5 tabs 06/13/25 release Allergies Allergy/AdvReac Type Severity Reaction Status Date / Time No Known Drug Allergies Allergy Verified 06/12/25 18:03 [facility] Medical History (Updated 06/17/25 @ 12:41 by Reina Funk MD) Adult hypothyroidism ?E03.9 - Hypothyroidism, unspecified (ICD-10) Hyponatremia ?E87.1 - Hypo-osmolality and hyponatremia (ICD-10) Paroxysmal atrial fibrillation ?I48.0 - Paroxysmal atrial fibrillation (ICD-10) Type 2 diabetes mellitus with hyperglycemia ?E11.65 - Type 2 diabetes mellitus with hyperglycemia (ICD-10) Syncope ?R55 - Syncope and collapse (ICD-10) Abrasion of scalp ?S00.01XA - Abrasion of scalp, initial encounter (ICD-10) Closed head injury ?S09.90XA - Unspecified injury of head, initial encounter (ICD-10) Laceration of scalp ?S01.01XA - Laceration without foreign body of scalp, initial encounter (ICD-10) Low back pain ?M54.50 - Low back pain, unspecified (ICD-10) Lumbar spondylosis ?M47.816 - Spondylosis without myelopathy or radiculopathy, lumbar region (ICD-10) Thoracic back pain ?M54.6 - Pain in thoracic spine (ICD-10) 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 - Other specified mononeuropathies (ICD-10) Paresthesias in right hand ?R20.2 - Paresthesia of skin (ICD-10) Foreign body in right ear ?T16.1XXA - Foreign body in right ear, initial encounter (ICD-10) Hyponatremia ?E87.1 - Hypo-osmolality and hyponatremia (ICD-10) Hypomagnesemia ?E83.42 - Hypomagnesemia (ICD-10) RADHA (acute kidney injury) ?N17.9 - Acute kidney failure, unspecified (ICD-10) Influenza ?J11.1 - Influenza due to unidentified influenza virus with other respiratory manifestations (ICD-10) Hypomagnesemia ?E83.42 - Hypomagnesemia (ICD-10) Acute hyponatremia ?E87.1 - Hypo-osmolality and hyponatremia (ICD-10) Acute confusion ?R41.0 - Disorientation, unspecified (ICD-10) Diabetes ?E11.9 - Type 2 diabetes mellitus without complications (ICD-10) High cholesterol ?E78.00 - Pure hypercholesterolemia, unspecified (ICD-10) Atrial fibrillation ?I48.91 - Unspecified atrial fibrillation (ICD-10) Surgical History Hx of carpal tunnel repair ?Z98.890 - Other specified postprocedural states (ICD-10) Family History Father Family history of myocardial infarction Family history of hypertension Mother Family history of cancer Family history of diabetes mellitus Social History (Updated 06/12/25 @ 22:04 by Edda Yap RN) Within the past year, how often did you have a drink containing alcohol: 2-4 times a month Smoking status: Never smoker Second hand tobacco smoke exposure: No Non-prescribed substance use: denies use Known occupational exposures/hazards: No Highest level of school completed/degree received: high school graduate Are you now , , , , never or living with a partner: Little interest or pleasure in doing things: not at all Feeling down, depressed, or hopeless: not at all Feel stressed/tense/nervous/anxious/difficulty sleeping: not at all Gender Identity: male Gender Identity Comment: Unable to assess due to AMS, Expressive aphasia. Exam Narrative Exam Narrative: Upon arrival the patient does not show any distress she is awake but not following any commands His NIH score is 12 With the fact that he have no cranial nerve pathology and the patient is completely mute not speaking at all, just looking right to left and not following any commands The patient was able to lift his upper extremity on the right side as well as the left upper extremity but the right leg he was not able to lift up he did drag it on the bed Left upper extremity he did lifted up when I did that for him and he kept it up Nurses notes and vital signs reviewed and patient is not hypoxic. General: Well-appearing and not speaking Skin: Warm, dry, no pallor noted. No rash. Head: Normocephalic, atraumatic. Neck: Supple, non-tender. Eye: Pupils are equal, round and EOMI. No scleral icterus. Ears, Nose, Mouth, and Throat: TM are clear, no nasal mucosal hypertrophy. Oral mucosa is moist, no posterior oropharynx erythema, uvula is mid-line Cardiovascular: Regular Rate and Rhythm without murmur, gallop or rub. Respiratory: No accessory muscle use or respiratory distress. Lungs are clear to auscultation, no wheezing, rales or rhonchi Chest Wall: no tenderness Back: No midline thoracic or lumbar vertebral tenderness. No CVA tenderness Musculoskeletal: normal ROM, no calf or popliteal tenderness, no lower extremity edema/swelling GI: Abdomen is soft, non-distended. Normal bowel sounds. No masses appreciated. No tenderness to palpation. No rebound, guarding, or rigidity noted. Constitutional Vital Signs, click to edit/add: Last Vital Signs Pulse 87 06/17/25 14:10 Resp 16 06/17/25 14:10 BP 152/88 H 06/17/25 14:07 Pulse Ox 97 06/17/25 14:10 O2 Del Method Room Air 06/17/25 11:20 Course Vital Signs Vital signs: Vital Signs Pulse Rate 72 06/17/25 11:20 Respiratory Rate 16 06/17/25 11:20 Blood Pressure 119/50 06/17/25 11:20 Pulse Oximetry 99 06/17/25 11:20 Oxygen Delivery Method Room Air 06/17/25 11:20 Pulse Rate 87 06/17/25 14:10 Respiratory Rate 16 06/17/25 14:10 Blood Pressure 152/88 H 06/17/25 14:07 Pulse Oximetry 97 06/17/25 14:10 Oxygen Delivery Method Room Air 06/17/25 11:20 MDM - Altered Mental Status MDM Narrative Medical decision making narrative: Patient EKG in the ER is showing A-fib with a heart rate of 72 INR was 1.2 and the patient sodium was 127 the rest of the blood workup showed no acute significant pathology Patient CT of the head showed no acute pathology Code stroke called and the patient case was discussed with telemetry neurology stroke ( DR Neal ) and with the fact that the pt NIHS score is at least 12 , the last known well at 10:45 AM which is almost an hour and a half ago the patient with the criteria for TNKase. After reviewing the patient history except for the fact that he had a fall with nose fracture a month ago The patient after reviewing the contraindication with the and obtained consent to give TNKase providing the with the possible side effect including intracranial bleeding as well The patient and agree that the patient symptoms right now are totally different than his baseline. 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 Calcified and noncalcified plaque is noted in the carotid bifurcations without significant stenosis on the right. There is approximately 20% stenosis of the proximal left internal carotid artery. No aneurysm dilatation or occlusion otherwise. The result of the CT angio head and neck discussed with and the patient right now to continue the same plan monitoring with the his blood pressure to be kept below 180/110 at the goal for blood pressure management Patient was accepted by in the ICU and traumatic and waiting bed assignment Lab Data Labs: Lab Results 06/17/25 06/17/25 Range/Units 11:21 11:40 WBC 5.5 (4.0-11.0) 10^3/uL RBC 4.06 L (4.70-6.10) 10^6/uL Hgb 12.8 L (14.0-18.0) g/dL Hct 35.8 L (42.0-54.0) % MCV 88.2 (80.0-94.0) fL MCH 31.5 (25.9-34.0) pg MCHC 35.8 H (29.9-35.2) g/dL RDW 12.8 (11.0-15.0) % Plt Count 218 (150-450) 10^3/uL MPV 10.6 (9.5-13.5) fL Neut % (Auto) 55.7 (43.0-75.0) % Lymph % (Auto) 28.0 (20.5-60.0) % [place] % (Auto) 11.9 (1.7-12.0) % Eos % (Auto) 2.7 (0.9-7.0) % Baso % (Auto) 1.3 (0.2-2.0) % Neut # (Auto) 3.0 (1.4-6.5) 10^3/uL Lymph # (Auto) 1.5 (1.2-3.8) 10^3/uL [place] # (Auto) 0.7 (0.3-0.8) 10^3/uL Eos # (Auto) 0.2 (0.0-0.7) 10^3/uL Baso # (Auto) 0.1 (0.0-0.1) 10^3/uL Abs Immat Gran (auto) 0.02 (0.00-0.03) 10^3/uL Imm/Tot Granulo (auto) 0.4 (0.0-0.5) % PT 13.0 H (9.0-11.6) sec INR 1.25 Sodium 127 L (136-145) mmol/L Potassium 4.5 (3.5-5.1) mmol/L Chloride 91 L (98-107) mmol/L Carbon Dioxide 28.0 (21.0-32.0) mmol/L Anion Gap 12.5 BUN 11.0 (7.0-18.0) mg/dL Creatinine 0.83 (0.70-1.30) mg/dL Est GFR ( Amer) >60 (>=60 mL/min/1.73m^2) Est GFR (Non-Af Amer) >60 (>=60 mL/min/1.73m^2) BUN/Creatinine Ratio 13.3 Glucose 101 (74-106) mg/dL Calcium 9.3 (8.5-10.1) mg/dL Total Bilirubin 1.0 (0.2-1.0) mg/dL AST 27 (15-37) U/L ALT 28 (16-63) U/L Alkaline Phosphatase 100 (46-116) U/L Troponin I High Sens 11.2 (4.0-76.1) pg/mL Total Protein 7.0 (6.4-8.2) g/dL Albumin 3.7 (3.4-5.0) g/dL Globulin 3.3 g/dL Albumin/Globulin Ratio 1.1 POC Glucose 100 (74-106) mg/dL Discharge Plan Discharge Chief Complaint: Altered Mental Status Clinical Impression: Acute stroke due to ischemia, Aphasia Prescriptions / Home Meds: No Action glimepiride 2 mg tablet 2 mg PO DAILY levothyroxine 25 mcg tablet 25 mcg PO QAM pravastatin 40 mg tablet 40 mg PO DAILY tamsulosin 0.4 mg capsule 0.4 mg PO DAILY warfarin [Jantoven] 5 mg tablet 5 mg PO MOWEFRSA@1700 warfarin [Jantoven] 2.5 mg tablet 2.5 mg PO SUTUTH@1700 omeprazole 40 mg capsule,delayed release(DR/EC) 40 mg PO .QD atenolol 25 mg Tablet 12.5 mg PO DAILY aspirin 81 mg Tablet,Delayed Release (Dr/Ec) 81 mg PO QD 5 Days Qty: 5 0RF finasteride 5 mg tablet 5 mg PO DAILY gabapentin 300 mg capsule 300 mg PO DAILY coenzyme Q10 [Co Q-10] 100 mg capsule 100 mg PO DAILY vitamin B complex [B-Complex] Tablet 1 tab PO DAILY Print Language: Citizen Of [place] Referrals: Britt Mcneill NP [Primary Care Provider] - 1 week
[2025-06-17 11:56] LABS: Hematocrit 35.8 % (42.0-54.0); Hemoglobin 12.8 g/dL (14.0-18.0); Immature Granulocytes Abs Auto 0.02 10^3/uL (0.00-0.03); Immature Granulocytes Pct Auto 0.4 % (0.0-0.5); Lymphocytes Absolute Auto 1.5 10^3/uL (1.2-3.8); Mean Corpuscular HGB Conc 35.8 g/dL (29.9-35.2); Mean Corpuscular Hemoglobin 31.5 pg (25.9-34.0); Mean Corpuscular Volume 88.2 fL (80.0-94.0); Platelet Count 218 10^3/uL (150-450); Red Blood Count 4.06 10^6/uL (4.70-6.10); White Blood Count 5.5 10^3/uL (4.0-11.0)
[2025-06-17 12:04] LABS: INR 1.25; Prothrombin Time 13.0 sec (9.0-11.6)
[2025-06-17 12:11] LABS: Alanine Aminotransferase 28 U/L (16-63); Albumin Globulin Ratio 1.1; Albumin Level 3.7 g/dL (3.4-5.0); Alkaline Phosphatase 100 U/L (46-116); Anion Gap 12.5; Aspartate Amino Transferase 27 U/L (15-37); Blood Urea Nitrogen 11.0 mg/dL (7.0-18.0); Calcium 9.3 mg/dL (8.5-10.1); Carbon Dioxide 28.0 mmol/L (21.0-32.0); Chloride 91 mmol/L (98-107); Estimated GFR (African America >60 (>=60 mL/min/1.73m^2); Estimated GFR (Non-African Ame >60 (>=60 mL/min/1.73m^2); Globulin 3.3 g/dL; Glucose 101 mg/dL (74-106); Potassium 4.5 mmol/L (3.5-5.1); Sodium 127 mmol/L (136-145); Total Protein 7.0 g/dL (6.4-8.2)
--- NOTE | 2025-06-17 12:21 | CT_ITS ---
[address] [address] Patient Name: INDIANA ZABALA MRN: [id number] date: 1940 Sex: M Assigned Patient Location: ER Current Patient Location: ER Accession/Order Number: [id number] Exam Date: 06/17/2025 13:32 Report Date: 06/17/2025 13:43 At the request of: JESSI YAO MD Procedure: CT angio neck CT angio head, CT angio neck 06/17/2025 1:00 PM SIGNS AND SYMPTOMS: ^S/P TNKASE ACUTE STROKE, altered mental status CONTRAST: 100 mL of intravenous Omnipaque 350 TECHNIQUE: Multi-detector CT angiography axial slices of the head were obtained before and during intravenous administration of IV contrast material. Sagittal, coronal, and 3-D reconstructions were performed and viewed on a separate workstation. CT was performed with one or more of the following dose reduction techniques: Automated exposure control, adjustment of the mA and/or kV according to patient size, or use of iterative reconstruction technique. Stenoses were measured using the NASCET criteria. COMPARISON: 06/13/2025 FINDINGS: CTA HEAD: The superior cerebellar arteries, posterior inferior cerebellar arteries, and the basilar artery are within normal limits. 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 The intracranial segments of the internal carotid arteries are within normal limits. There are normal anterior and middle cerebral arteries. Anterior communicating artery is patent. Posterior communicating arteries are present. The deep venous system and dural venous systems appear to be patent. No bony abnormalities are appreciated. CTA NECK: There is a normal three-vessel arch configuration. Atherosclerotic changes are noted in the thoracic aorta and origins of the great vessels.. The subclavian arteries are within normal limits. The vertebral arteries arise from the subclavian arteries and are normal in course and caliber up to the skull base. Calcified and noncalcified plaque is noted in the carotid bifurcations without significant stenosis on the right. There is approximately 20% stenosis of the proximal left internal carotid artery. Visualized lung parenchyma is clear. There is anterior fusion at C3-C4 and from C5 through C7. No acute bony abnormalities are identified. The paraspinous soft tissues are within normal limits. 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 Calcified and noncalcified plaque is noted in the carotid bifurcations without significant stenosis on the right. There is approximately 20% stenosis of the proximal left internal carotid artery. No aneurysm dilatation or occlusion otherwise. Impression dictated by: Antelmo Sinha M.D. 06/17/2025 1:43 PM Dictation Location: [place] [address] Electronically authenticated by: [id number] Y Date: 06/17/2025 13:43
--- NOTE | 2025-06-17 12:21 | CT_ITS ---
[address] [address] Patient Name: INDIANA ZABALA MRN: [id number] date: 1940 Sex: M Assigned Patient Location: ER Current Patient Location: ER Accession/Order Number: [id number] Exam Date: 06/17/2025 13:32 Report Date: 06/17/2025 13:43 At the request of: JESSI YAO MD Procedure: CT angio neck CT angio head, CT angio neck 06/17/2025 1:00 PM SIGNS AND SYMPTOMS: ^S/P TNKASE ACUTE STROKE, altered mental status CONTRAST: 100 mL of intravenous Omnipaque 350 TECHNIQUE: Multi-detector CT angiography axial slices of the head were obtained before and during intravenous administration of IV contrast material. Sagittal, coronal, and 3-D reconstructions were performed and viewed on a separate workstation. CT was performed with one or more of the following dose reduction techniques: Automated exposure control, adjustment of the mA and/or kV according to patient size, or use of iterative reconstruction technique. Stenoses were measured using the NASCET criteria. COMPARISON: 06/13/2025 FINDINGS: CTA HEAD: The superior cerebellar arteries, posterior inferior cerebellar arteries, and the basilar artery are within normal limits. 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 The intracranial segments of the internal carotid arteries are within normal limits. There are normal anterior and middle cerebral arteries. Anterior communicating artery is patent. Posterior communicating arteries are present. The deep venous system and dural venous systems appear to be patent. No bony abnormalities are appreciated. CTA NECK: There is a normal three-vessel arch configuration. Atherosclerotic changes are noted in the thoracic aorta and origins of the great vessels.. The subclavian arteries are within normal limits. The vertebral arteries arise from the subclavian arteries and are normal in course and caliber up to the skull base. Calcified and noncalcified plaque is noted in the carotid bifurcations without significant stenosis on the right. There is approximately 20% stenosis of the proximal left internal carotid artery. Visualized lung parenchyma is clear. There is anterior fusion at C3-C4 and from C5 through C7. No acute bony abnormalities are identified. The paraspinous soft tissues are within normal limits. 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 Calcified and noncalcified plaque is noted in the carotid bifurcations without significant stenosis on the right. There is approximately 20% stenosis of the proximal left internal carotid artery. No aneurysm dilatation or occlusion otherwise. Impression dictated by: Antelmo Sinha M.D. 06/17/2025 1:43 PM Dictation Location: [place] [address] Electronically authenticated by: [id number] Y Date: 06/17/2025 13:43
[2025-06-17] MEDS: TENECTEPLASE 50 MG VIAL 22.5 MG IVP (12:32)
== END 2025-06-17 14:30 | disposition short-term general hospital (02) ==
PROVIDERS: Emergency Provider Emergency Medicine; PCP Nurse Practitioner Family
DX: I63.9 Cerebral infarction, unspecified (principal); R47.01 Aphasia; R29.712 NIHSS score 12; Z79.899 Other long term (current) drug therapy; I48.20 Chronic atrial fibrillation, unspecified; Z51.81 Encounter for therapeutic drug level monitoring; Z79.01 Long term (current) use of anticoagulants
CPT/HCPCS: 36415; 70450; 70496; 70498; 80053; 82948; 84484; 85025; 85610; 93005; 96374; 99285; G0463; J3101; Q9967

== ENCOUNTER 2025-07-15 00:34 | Outpatient (RCR) | payer MEDICARE, SELFPAY | END 2025-08-13 15:11 | disposition home or self-care (01) | LOC: MM 00:34 | PROVIDERS: PCP Nurse Practitioner Family; Visit Provider Internal Medicine | DX: Z51.81 Encounter for therapeutic drug level monitoring (principal); Z79.01 Long term (current) use of anticoagulants; I48.20 Chronic atrial fibrillation, unspecified ==

== ENCOUNTER 2025-07-19 11:44 | Emergency (ER) | payer MEDICARE, SELFPAY ==
[2025-07-19] VITALS (7 sets, daily range): BP systolic 109–134; BP diastolic 65–100; PULSE 75–105; TEMP 37.2–40.4; O2SAT 96–100; BMI 56.8
--- NOTE | 2025-07-19 11:39 | ECG_ITS ---
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
--- NOTE | 2025-07-19 11:39 | XR_ITS ---
The [address] [address] Patient Name: INDIANA ZABALA MRN: [id number] date: 1940 Sex: M Assigned Patient Location: ED.MAIN Current Patient Location: ED.MAIN Accession/Order Number: [id number] Exam Date: 07/19/2025 12:32 Report Date: 07/19/2025 12:57 At the request of: TRI CHANG DO Procedure: XR chest 2V PA AND LATERAL CHEST: CLINICAL HISTORY: Altered mental status, cough, fever, abdominal pain, nausea and vomiting COMPARISON: 06/12/2025 and spine 08/13/2024 There is minimal atelectasis or scarring. There is no developing consolidation, effusion or pneumothorax. The cardiac, hilar and mediastinal silhouettes are similar. There is no vascular congestion. There is slight levoscoliotic curvature and endplate spurring. A lower cervical fusion plate is seen. Mild lower thoracic compression deformities are again noted. XR/XR chest 2V IMPRESSION: NO ACUTE CARDIOPULMONARY ABNORMALITY. Impression dictated by: Connie Reinoso M.D. 07/19/2025 12:57 PM Dictation Location: [place] [address] Electronically authenticated by: [id number] Y Date: 07/19/2025 12:57
--- NOTE | 2025-07-19 11:41 | CT_ITS ---
The [address] [address] Patient Name: INDIANA ZABALA MRN: [id number] date: 1940 Sex: M Assigned Patient Location: ED.MAIN Current Patient Location: ED.MAIN Accession/Order Number: [id number] Exam Date: 07/19/2025 12:28 Report Date: 07/19/2025 13:04 At the request of: TRI CHANG DO Procedure: CT head/brain wo con CT BRAIN WITHOUT CONTRAST: CLINICAL HISTORY: Altered mental status. History of CVA COMPARISON: 06/17/2025 and MRI 06/13/2025 TECHNIQUE: Contiguous axial unenhanced images were obtained through the brain. This CT exam was performed using one or more following dose reduction techniques: Automated exposure control, adjustment of the mA and/or kV according to patient size, or use of iterative reconstruction technique. FINDINGS: There is generalized atrophy. The ventricles are normal in size and position. Similar physiologic basal ganglia, indications are seen. Chronic microvascular changes are again noted. There are no additional areas of abnormal attenuation. There is no hemorrhage, mass effect or extra-axial collections. The imaged paranasal sinuses and mastoid air cells are clear. There is minor carotid siphon and vertebral artery plaque. CT/CT head/brain wo con IMPRESSION: ATROPHY AND CHRONIC MICROVASCULAR CHANGES. NO ACUTE INTRACRANIAL ABNORMALITY. Impression dictated by: Connie Reinoso M.D. 07/19/2025 1:04 PM Dictation Location: [place] [address] Electronically authenticated by: [id number] Y Date: 07/19/2025 13:04
[2025-07-19] MEDS: 0.9 % SODIUM CHLORIDE 1,000 ML 1000 ML IV ×2 (11:51→12:55)
[2025-07-19] MEDS: ACETAMINOPHEN 650 MG RECTAL SUPPOSITORY PR (11:54)
--- OUTSIDE RECORDS SUMMARY | 2025-07-19 12:01 | XMS_ITS | CCD ---
Author Organization [facility] Care Team Providers Care Environmental Management Specialist Name Role Phone Cathleen Reneria Unavailable Unavailable Primary Care Provider Unavailrogerio e Rene, Jada A Attending Unavailable Rene, Jada A Admitting Unavailable Rene, Jada A Primary Care Unavailable Edgard Jada A Attending Unavailable Edgard Jada A Admitting Unavailable Edgard Jada A Primary Care Unavailable Edwin Garcia Primary Care Physician Irene COHN, Nathaniel Longo Attending Unavailable Edwin Garcia MD Primary Care Provider [phone] Edwin Garcia Attending Unavailable Edwin Garcia Admitting Unavailable Hernández, Axel T Admitting Unavailable Hernández, Axel T Attending Unavailable Hernández, Axel T Referring Unavailable Edwin Garcia Attending Unavailable Edwin Garcia Attending Unavailable Hernández, Axel T Admitting Unavailable Hernández, Axel T Attending Unavailable Hernández, Axel T Referring Unavailable Edwin Garcia Attending Unavailable Edwin Garcia Admitting Unavailable Edwin Garcia MD Primary Care Provider HERNÁNDEZ, AXEL T Referring Unavailable HERNÁNDEZ, AXEL T Attending Unavailable EDWIN GARCIA E Referring Unavailable HERNÁNDEZ, AXEL T Attending Unavailable HERNÁNDEZ, AXEL T Referring Unavailable HERNÁNDEZ, AXEL T Attending Unavailable HERNÁNDEZ, AXEL T Referring Unavailable SHALA FARRELL Attending Unavailable HERNÁNDEZ, AXEL T Attending Unavailable HERNÁNDEZ, AXEL T Referring Unavailable EMILIANO ESCAMILLA Attending Unavailable JOSE L CHOW Attending Unavailable Edwin Garcia Attending Unavailable Edwin Garcia Admitting Unavailable Edwin Garcia Attending Unavailable Edwin Garcia Admitting Unavailable Edwin Garcia Admitting Unavailable Edwin Garcia Attending Unavailable Edwin Garcia Admitting Unavailable Edwin Garcia Attending Unavailable Edwin Garcia Attending Unavailable Hernández, Axel T Referring Unavailable Hernández, Axel T Admitting Unavailable Hernández, Axel T Attending Unavailable RossEdwin Admitting Unavailable RossEdwin Attending Unavailable REYES, YANIQUE A Attending Unavailable REYES, YANIQUE A Attending Unavailable RossEdwin EShanna Attending Unavailable REYES, YANIQUE A Admitting Unavailable REYES, YANIQUE A Attending Unavailable Hernández, Axel T Admitting Unavailable Hernández, Axel T Attending Unavailable Hernández, Axel T Referring Unavailable RossEdwin Attending Unavailable Edwin Garcia Attending Unavailable Edwin Garcia Attending Unavailable Edwin Garcia Attending Unavailable Edwin Garcia Attending Unavailable Edwin Garcia Attending Unavailable Edwin Garcia Attending Unavailable MouranDavie rascon Attending Unavailable Edwin Garcia Referring Unavailable MoDavie christian Attending Unavailable NONE, XXXX Referring Unavailable Kashif Barnett Admitting Unavailable Kashif Barnett Attending Unavailable Jules OPERATING THEATRE TECHNICIAN - DRIVER RETRAINING INSTRUCTORJadne Primary Care Provider Edwin Garcia Referring Unavailable LALITHA Dubose Admitting Unavailable LALITHA Dubose Attending Unavailable AVKYLER, FLACO Attending Unavailable FLACO REN Admitting Unavailable JADEN MARAVILLA Primary Care Unavailable KAYE BARNETT Referring Unavailable BRIGIDA PINA Consulting Unavailable ROBERTO GOOD Consulting Unavailable CICI DUMONT Consulting Unavailable REYES, YANIQUE A Attending Unavailable REYES, YANIQUE A Admitting Unavailable REYES, YANIQUE A Admitting Unavailable REYES, YANIQUE A Attending Unavailable REYES, YANIQUE A Attending Unavailable REYES, YANIQUE A Admitting Unavailable REYES, YANIQUE A Attending Unavailable MD Edwin Garcia Attending Unavailable MD Edwin Garcia Admitting Unavailable MD Edwin Garcia Attending Unavailable MD Edwin Garcia Admitting Unavailable MD Edwin Garcia Attending Unavailable MD Edwin Garcia Attending Unavailable MD Edwin Garcia Admitting Unavailable MD Edwin Garcia Attending Unavailable MD Edwin Garcia Attending Unavailable MD Edwin Garcia Admitting Unavailable MD Edwin Garcia Attending Unavailable MD Edwin Garcia Attending Unavailable MD Edwin Garcia Admitting Unavailable MD Edwin Garcia Attending Unavailable MD Edwin Garcia Admitting Unavailable MD Edwin Garcia Attending Unavailable Yanique Bonilla Primary Care Provider REYES, YANIQUE A Attending Unavailable GRETCHEN Maravilla Attending Unavailable REYES, YANIQUE A Attending Unavailable REYES, YANIQUE A Attending Unavailable REYES, YANIQUE A Attending Unavailable REYES, YANIQUE A Admitting Unavailable REYES, YANIQUE A Attending Unavailable REYES, YANIQUE A Admitting Unavailable REYES, YANIQUE A Admitting Unavailable REYES, YANIQUE A Admitting Unavailable Allergies Allergy Classification Reported Allergen(s) Allergy Type Date of Onset Reaction(s) Facility (11 sources) No Known Medication Allergies; Translations: [No Known Medication Allergies] Propensity to adverse reactions (disorder) [facility] Medications Current Medications Medication Drug Class(es) Dates Sig (Normalized) Sig (Original) Acetaminophen (3 sources) Start: 06-18-2025 take 1 tablet by mouth every six hours as needed for pain and pain and fever and headache acetaminophen (TYLENOL) tablet 650 mg Start: 06-17-2025 End: 06-18-2025 take 1000 mg intravenously every six hours as needed for pain and pain and fever and headache 1,000 mg, intravenous, at 400 mL/hr, Administer over 15 Minutes, Every 6 hours PRN, mild pain - pain scale 1-3, moderate pain - pain scale 4-6, temperature greater than 38 C, headaches, Starting on Tue06/17/25 at 2017, For 24 hours Start: 06-02-2025 acetaminophen (TYLENOL) tablet 650 mg acetaminophen 325 mg / HYDROcodone bitartrate 5 mg oral tablet (11 sources) Opioid Agonist Start: 03-20-2024 take 1 tablet by mouth every four hours as needed for pain [place] 325 mg-5 mg oral tablet See Instructions, for pain, 10 tab(s), Refill(s) 0, 1 tab(s) Oral q4hr PRN Pain. Duration 7 days., [id number], 180.5, cm, 03/20/24 15:05:00 EDT, Height/Length Dosing, 82.5, kg, 03/20/24 15:05:00 EDT, Weight Dosing Start Date: 03/20/24 Status: Ordered End: 11-26-2024 HYDROcodone-acetaminophen (N orco) 5-325 MG tablet 11/26/2024 Discontinued (Therapy completed) apixaban 5 mg oral tablet (3 sources) Factor Xa Inhibitor Start: 06-22-2025 End: 07-23-2025 take 1 tablet by mouth in the morning, then take 1 tablet by mouth at bedtime apixaban (ELIQUIS) 5 mg tablet Take 1 tablet (5 mg total) by mouth in the morning and 1 tablet (5 mg total) before bedtime. Do all this for 30 days. 60 tablet 06/23/2025 07/23/2025 Active benzonatate 200 mg oral capsule (10 sources) Non-narcotic Antitussive End: 11-26-2024 take 1 capsule by mouth three times daily benzonatate (Tessalon) 200 MG capsule Take 1 capsule 3 times a day by oral route. 11/26/2024 Discontinued (Therapy completed) 100 ml calcium gluconate 20 mg/ml injection (1 source) Start: 06-22-2025 take 4-4.3 mg intravenously every hour as needed 2,000 mg, intravenous, at 50 mL/hr, Administer over 2 Hours, As needed, ionized calcium 4 to 4.3 mg/dL, Starting on 06/22/25 at 1115, IV Administration of calcium via a central or deep vein preferred. Avoid administration in small hand veins VESICANT (RED) calcium gluconate 3,000 mg in sodium chloride 0.9 % 100 mL IVPB (1 source) Start: 06-22-2025 take 3.5-3.9 mg intravenously every hour as needed 3,000 mg, intravenous, at 43.3 mL/hr, Administer over 3 Hours, As needed, ionized calcium 3.5 to 3.9 mg/dL, Starting on 06/22/25 at 1115, IV Administration of calcium via a central or deep vein preferred. Avoid administration in small hand veins VESICANT (RED) calcium gluconate 4,000 mg in sodium chloride 0.9 % 250 mL IVPB (1 source) Start: 06-22-2025 take 3.4 mg intravenously every hour as needed 4,000 mg, intravenous, at 72.5 mL/hr, Administer over 4 Hours, As needed, ionized calcium 3.4 mg/dL or less, Starting on 06/22/25 at 1115, IV administration of calcium via a central or deep vein is preferred. Avoid administration in small hand veins. VESICANT (RED) cephalexin 500 mg oral capsule (12 sources) [...] Corticosteroid Start: 08-31-2024 fluticasone Nasal 0.05 mg/inh [place] See Instructions, 48 mL, Refill(s) 1, USE 1 SPRAY IN EACH NOSTRIL TWICE A DAY, [id number], 178, cm, 08/28/24 14:50:00 EDT, Height/Length Dosing, 82.2, kg, 08/28/24 14:50:00 EDT, Weight Dosing Start Date: 08/31/24 Status: Ordered Start: 07-03-2024 take 1 spray(s) nasa l route twice daily Flonase 0.05 mg/inh [place] 1 spray(s), Nasal, BID, 16 gram, Refill(s) 0, each nostril, [id number], 178, cm, 07/03/24 10:05:00 EDT, Height/Length Dosing, 80.8, kg, 07/03/24 10:05:00 EDT, Weight Dosing Start Date: 07/03/24 Status: Ordered End: 11-26-2024 take 1 spray(s) nasal route once daily at bedtime fluticasone (Flonase) 50 MCG/ACT nasal spray USE 1 SPRAY(S) IN EACH NOSTRIL ONCE DAILY AT BEDTIME 11/26/2024 Discontinued (Therapy completed) glimepiride 2 mg oral tablet (20 sources) Sulfonylurea Start: 10-14-2014 take 1 tablet by mouth once daily glimepiride 2 mg Tab 2 mg = 1 tab(s), Oral, Daily, # 90 tab(s), Refills(s) 1, [facility], 178.6, cm, 02/05/25 13:36:00 EDT, Height/Length Dosing, 82.2, kg, 02/05/25 13:36:00 EDT, Weight Dosing Start Date: 02/18/25 Status: Ordered Quantity: 90.0 Unit: tab(s) Repeat number: 2 Comment on above: Take 1 tablet by alyssa once daily. 50 ml glucose 500 mg/ml prefilled syringe (5 sources) Start: 06-17-2025 15 g, oral, As needed, low blood sugar, blood glucose less than 70 mg/dL, Starting on Tue06/17/25 at 1622, If patient conscious and taking PO. If blood glucose is not greater than 70 mg/dL after initial treatment, repeat treatment. Start: 06-17-2025 25 mL, intrave nous, As needed, low blood sugar, blood glucose less than 70 mg/dL and unconscious or NPO with IV access, Starting on Tue06/17/25 at 1622, Push over 1-3 minutes STAT. If conscious and not NPO, immediately follow with meal tray or high protein (7 grams) snack if tray not available. If NPO, initiate 5% dextrose in water at 100 mL/hr and contact prescriber for additional orders. If blood glucose is not greater than 70 mg/dL after initial treatment, repeat treatment. VESICANT (RED) Warning: HYPERTONIC solution. Start: 06-02-2025 IntraVENous, a t 100 mL/hr, CONTINUOUS PRN, if blood glucose [...] remains LESS THAN 70 mg/dL, notify provider. 1 ml heparin sodium, porcine 5000 unt/ml injection (2 sources) Unfractionated Heparin, Anti-coagulant Start: 06-18-2025 2,000 Units, intrave nous, As needed, for Anti-Xa less than 0.1 IU/mL, Starting on Tue06/18/25 at 1358, Look-alike/sound-alike medication - verify indication for use. Observe for bleeding. Start: 06-18-2025 End: 06-22-2025 300-3,500 Units/hr (6-70 mL/ hr), intravenous, Continuous, Starting on Tue06/18/25 at 1400, For 4 days 8 hours, Please titrate from initial infusion rate listed above. MAXIMUM initial infusion: 1000 units/hr Heparin Low Intensity Infusion (Cardiology) Heparin Adjustment Table: Anti-Xa Therapeutic Goal: 0.3 - 0.7 IU/mL Anti-Xa results (IU/mL): Ant-Xa every 6 hours after dosage adjustment until therapeutic x 2 then every AM -less than 0.1 IU/mL: bolus 2000 units, increase rate by 150 units/hr (3 mL/hr), next Anti-Xa in 6 hrs. -0.1 - 0.29 IU/mL: increase rate by 100 units/hr (2 mL/hr), next Anti-Xa in 6 hours. -Notify provider if: Anti-Xa less than 0.3 IU per mL for 2 consecutive results. -0.3 - 0.7 IU/mL: Therapeutic level: next Anti-Xa in 6 hours then every AM. -0.71 - 0.8 IU/mL: decrease rate by 50 units/hr (1 mL/hr), next Anti-Xa in 6 hours. -0.81 - 1.6 IU/mL: stop infusion for 30 minutes, decrease rate by 100 units/hr (2 mL/hr), next Anti-Xa in 6 hours. -1.61 - 2 IU/mL: stop infusion for 60 minutes, decrease rate by 150 units/hr (3 mL/hr), next Anti-Xa in 6 hours. - Greater than 2 IU/mL: stop infusion for 90 minutes, decrease rate by 250 units/hr (5 mL/hr), next Anti-Xa in 6 hours. -Notify provider if: Platelet count less than 100,000/mm3 or less than or equal to 50% of baseline Monitor for signs of bleeding. Look-alike/sound-alike medication - verify indication for use., Indication: Afib or Mechanical Valve, INITIAL Infusion Dose (Units/hr): 950 units/hr 1 ml hydrALAZINE hydrochloride 20 mg/ml injection (1 source) Arteriolar Vasodilator Start: 06-17-2025 take 10 mg intravenously every six hours as needed 10 mg, intravenous, Every 6 hours PRN, high blood pressure, Starting on Tue06/17/25 at 1625, For systolic blood pressure greater than 180 mmHg and heart rate less than 60. Look-alike/sound-alike medication - verify indication for use. Administer IV doses as a slow IV push; maximum rate: 5 mg/minute. hydroCHLOROthiazide 25 mg oral tablet (13 sources) Thiazide Diuretic take 1 tablet by mouth once daily hydroCHLOROthiazide (HYDRODiuril) 25 MG tablet Take 1 tablet by mouth Daily Active 4 ml labetalol hydrochloride 5 mg/ml cartridge (1 source) beta-Adrenerg ic Chema Start: 06-17-2025 20 mg, intravenous, Every 10 min PRN, high blood pressure, Starting on Tue06/17/25 at 1625, For systolic blood pressure greater than 180 mmHg and heart rate greater than 60. May administer up to 3 times in 1 hour Look-alike/sound-alike medication - verify indication for use. levothyroxine sodium 0.025 mg oral tablet (20 [...] STOMACH, # 90 tab(s), Refills(s) 1, Pharmacy: [id number], 178.6, cm, 02/05/25 13:36:00 EDT, Height/Length Dosing, 82.2, kg, 02/05/25 13:36:00 EDT, Weight Dosing Start Date: 03/07/25 Status: Ordered Quantity: 90.0 Unit: tab(s) Repeat number: 1 Start: 03-07-2025 25 mcg, oral, Daily, First dose on Tue06/18/25 at 0600, Look-alike/sound-alike medication. Verify indication for use Administer on empty stomach at least ONE hour before or TWO hours after food Enteral Feeding: For 7 days or less of tube feeding- do NOT hold tube feedings, after 7 days- hold tube feedings ONE hour before and ONE hour after administration DOES NOT APPLY TO NEONATES Monitor thyroid function tests weekly Start: 08-20-2024 Synthroid 25 m cg(0.025 mg) Tab See Instructions, TAKE 1 TABLET DAILY ON AN EMPTY STOMACH, # 3 tab(s), Refills(s) 0, Pharmacy: [id number], 178, cm, 08/07/24 10:59:00 EDT, Height/Length Dosing, 78.2, kg, 08/07/24 10:59:00 EDT, Weight Dosing Start Date: 08/20/24 Status: Ordered Quantity: 3.0 Unit: tab(s) Repeat number: 1 Start: 02-13-2024 take 1 tablet by alyssa once daily levothyroxine 25 mcg (0.025 mg) Tab 25 mcg = 1 tab(s), Oral, Daily, on an empty stomach, # 90 tab(s), Refills(s) 1, Pharmacy: [facility], 178.2, cm, 02/02/24 10:29:00 EDT, Height/Length [...] empty stomach Orally Once a day Active lidocaine 0.05 mg/mg medicated patch (1 source) Antiarrhythmic, Amide Local Anesthetic Start: 06-19-2025 apply 1 dose transdermal route once daily, then apply 1 dose transdermal route every twelve hours 1 patch, transdermal, Administer over 12 Hours, Daily, First dose on Tue06/19/25 at 0900, Apply to intact skin on the painful area on back. Patch(es) may remain in place for up to 12 hours in any 24-hour period. Remove previous patch, if present, before applying new. lisinopril 10 mg oral tablet (2 sources) Angiotensin Converting Enzyme Inhibitor Start: 06-06-2025 take 1 tablet by mouth once daily lisinopril (PRINIVIL;ZESTRIL ) 10 MG tablet Take 1 tablet by [...] IVPB x 4 doses (4 gram Total) magnesium sulfate IVPB 2000 mg/50 mL in iso-osmotic water (40 mg/mL premix) (1 source) Start: 06-17-2025 magnesium sulfate IVPB 2000 mg/50 mL in iso-osmotic water (40 mg/mL premix) methocarbamol 750 mg oral tablet (9 sources) Muscle Relaxant Start: 07-15-2024 take 1 tablet by mouth three times daily as needed for pain methocarbamol (Robaxin) 750 MG tablet TAKE 1 TABLET BY MOUTH 3 TIMES A DAY NEEDED FOR PAIN 07/15/2024 Active midodrine hydrochloride 5 mg oral tablet (3 sources) alpha-Adrenergic Agonist Start: 06-21-2025 End: 07-23-2025 take 1 tablet by mouth three times daily midodrine (PROAMATINE) 5 mg tablet Take 1 tablet (5 mg total) by mouth 3 (three) times a day for 30 days. 90 tablet 06/23/2025 07/23/2025 Active ondansetron (ZOFRAN-ODT) disintegrating tablet 4 mg (1 source) Start: 06-02-2025 ondansetron (ZOFRAN-ODT) disintegrating tablet 4 mg pantoprazole 40 mg delayed release oral tablet (2 sources) Proton Pump Inhibitor Start: 06-18-2025 40 mg, oral, Daily, First dose on Tue06/18/25 at 0600, Look-alike/sound-ali ke medication - verify indication for use. If patient is receiving enteral feeding, consider alternative PPI or continue IV pantoprazole until the delayed-release tablet can be taken orally, Indication: GERD Start: 06-03-2025 40 mg, Oral, D AILY BEFORE BREAKFAST, First dose on Tue06/03/25 at 0700, Until Discontinued, Do not crush or break. Substituted for Omeprazole (PRILOSEC). Potassium Chloride (2 sources) Start: 06-22-2025 potassium chlo ride (K-TAB,KLOR-CON) CR tablet 20-60 mEq Start: 06-02-2025 potassium chlo ride (KLOR-CON M) extended release tablet 40 mEq rosuvastatin calcium 5 mg oral tablet (1 source) HMG-CoA Reductase Inhibitor Start: 06-19-2025 take 5 mg by mouth once daily 5 mg, oral, Nightly, First dose on Tue06/19/25 at 2200, Look-alike/sound-alike medication - verify indication for use. sildenafil 100 mg oral tablet (20 sources) Phosphodiesterase 5 Inhibitor Start: 07-03-2024 take 1 tablet by mouth once daily as needed sildenafil 100 mg Tab 100 mg = 1 tab(s), Oral, Daily, PRN for erectile dysfunction, 1 hour before sexual activity, # 5 tab(s), Refills(s) 0, Pharmacy: [facility], 178, cm, 07/03/24 10:05:00 EDT, Height/Length [...] activity, # 5 tab(s), Refills(s) 0, Pharmacy: [facility], 178.2, cm, 02/02/24 10:29:00 EDT, Height/Length [...] tab(s), Refill(s) 0, [facility] one tablet daily[id number] 178.6, cm, 11/01/24 9:21:00 EST, Height/Length Dosing, 81.3, kg, 11/01/24 9:21:00 EST, Weight Dosing Start Date: 11/13/24 Status: Ordered sodium phosphate 20 mmol in sodium chloride 0.9 % 250 mL IVPB (1 source) Start: 06-22-2025 sodium phosphate 20 mmol in sodium chloride 0.9 % 250 mL IVPB tadalafil 2.5 mg oral tablet (3 sources) Phosphodiesterase 5 Inhibitor Start: 05-07-2025 take 1 tablet by mouth once daily as needed Cialis 2.5 mg oral tablet 2.5 mg = 1 tab(s), Oral, Daily, PRN for erectile dysfunction, # 7 tab(s), Refills(s) 0, [id number] 178.6, cm, 02/05/25 13:36:00 EDT, Height/Length [...] Date: 03/06/24 Status: Ordered Repeat number: 1 urea (URE-NA) 15 g PACK packet (4 [...] 06/05/2025 Active urea (URE-NA) packet 15 g (2 sources) Start: 06-20-2025 15 g, oral, 2 times daily, First dose on Tue06/20/25 at 1330, Mix each 15 g dose with 3 to 4 ounces of water or juice. Start: 06-06-2025 15 g, Oral, DA RASTA, First dose on Tue06/06/25 at 0900, Until [...] 0 Start Date: 12/01/23 Status: Ordered warfarin placeholder: dosing by pharmacy (1 source) Start: 06-02-2025 Please contact the pharmacy if a dose is not entered by 1600. Review INR prior to warfarin administration. Completed/Discontinued Medications Medication Drug Class(es) Dates Sig (Normalized) Sig (Original) aspirin 81 mg oral tablet (3 sources) Platelet Aggregation Inhibitor, Nonsteroidal Anti-inflammatory Drug Start: 08-10-2005 take 1 tablet by mouth once daily ASPIRIN 81 MG ORAL TAB Take one (1) tablet daily . 0 08/10/2005 Active take 1 tablet by mouth in the mo rning aspirin 81 mg Take 1 tablet (81 mg total) by mouth in the morning. Suspended Comment on above: Take one (1) tablet daily . atenolol 25 mg oral tablet (20 sources) beta-Adrenergic Chema Start: 06-22-2025 End: 06-22-2025 take 25 mg by mouth once daily 25 mg, oral, Daily, First dose on 06/22/25 at 0930, Hold if systolic BP Start: 06-19-2025 End: 06-21-2025 take 12.5 mg by mouth once daily 12.5 mg, oral, Daily, First dose on 06/19/25 at 0915 Start: 06-02-2025 take 25 mg by mouth twice lauren y 25 mg, Oral, 2 TIMES DAILY, First dose (after last modification) on 06/02/25 at 2100, Until Discontinued, Hold for heart rate Start: 05-20-2025 take 0.5 tablet by m outh in the morning atenoloL (TENORMIN) 25 mg tablet Take 0.5 tablets (12.5 mg total) by mouth in the morning. 05/20/2025 Start: 10-22-2024 atenolol 25 mg Tab See Instructions, take 1/2 tab daily, # 90 tab(s), Refills(s) 1, Pharmacy: [facility], 178, cm, 09/10/24 13:01:00 EDT, Height/Length Dosing, 80.1, kg, 09/10/24 13:01:00 EDT, Weight Dosing Start Date: 10/22/24 Status: Ordered Quantity: 90.0 Unit: tab(s) Repeat number: 2 Start: 04-20-2024 atenolol 25 mg Tab See Instructions, take 1/2 tab daily, # 30 tab(s), Refills(s) 5, Pharmacy: [id number], 180, cm, 04/20/24 13:27:00 EDT, Height/Length Dosing, 82.2, kg, 04/20/24 13:27:00 EDT, Weight Dosing Start Date: 04/20/24 Status: Ordered Start: 10-06-2015 take 1 tablet by alyssa th once daily atenolol 25 mg Tab 25 mg = 1 tab(s), Oral, Daily, # 90 tab(s), Refills(s) 0, Pharmacy: [facility], 178.2, cm, 02/02/24 10:29:00 EDT, Height/Length [...] Meter (CONTOUR METER) monitoring kit (1 source) Start : 08-23 Blood-Glucose Meter (CONTOUR METER) monitoring kit Indications: Type II or unspecified type diabetes mellitus without mention of complication, not stated as uncontrolled Testing twice daily 1 Each 0 08/23/2012 Active Comment on above: Testing twice daily cyclobenzaprine hydrochloride 10 mg oral tablet (1 source) Muscle Relaxant End: 06-05 take 1 tablet by mouth three times daily as needed for muscle spasms cyclobenzaprine (FLEXERIL) 10 MG tablet Take 1 tablet by mouth 3 times daily as needed for Muscle spasms 06/05/2025 Discontinued (Stop Taking at Discharge) dabigatran etexilate 150 mg oral capsule (14 sources) Start : 10-09 take 1 capsule by mouth twice daily dabigatran etexilate (PRADAXA) 150 mg cap Indications: Atrial fibrillation (HCC) Take 1 capsule by mouth twice daily. 180 capsule 3 10/09/2014 Active Comment on above: Take 1 capsule by mo [facility] twice daily. finasteride 5 mg oral tablet (20 sources) 5-alpha Reductase Inhibitor Start : 10-09 take 1 tablet by mouth in the morning finasteride (PROSCAR) 5 mg tablet Take 1 tablet (5 mg total) by mouth in the morning. 01/29/2025 Comment on above: Take 1 tablet by [facility] once daily. gabapentin 300 mg oral capsule (20 sources) Anti-epileptic Agent Start : 12-01 End: 06-21 take 300 mg by mouth once daily 300 mg, oral, Daily, First dose on Tue06/18/25 at 0900, Look-alike/sound-ali ke medication - verify indication for use. glipiZIDE 5 mg oral tablet (1 source) Sulfonylurea Start : 06-03 5 mg, Oral, DAILY BEFORE BREAKFAST, First dose on Tue06/03/25 at 0700, Until Discontinued, Substituted for glimepiride (AMARYL). glucagon (rdna) 1 mg injection (3 sources) Antihypoglycemic Agent Start : 06-22 End: 06-22 inject 1 mg by intramuscular injection once 1 mg, intramuscular, Once, On Tue06/22/25 at 1530, For 1 dose Start: 06-17-2025 1 mg, intramus cular, As needed, low blood sugar, blood glucose less than 70 mg/dL and unconscious or NPO without IV access., Starting on Tue06/17/25 at 1622, If conscious and not NPO, immediately follow with meal tray or high protein (7Grams) snack if tray not available. If NPO, initiate IV 5% Dextrose/Water at 100 mL/hr and contact prescriber for additional orders. If blood glucose is not greater than 70 mg/dL after initial treatment, repeat treatment. Start: 06-02-2025 1 mg, SubCUTAn eous, PRN, Starting on Tue06/02/25 at 1205, Until Discontinued, Low blood sugar, Blood glucose LESS THAN 70 mg/dL and patient NOT ALERT or NPO and does not have IV access., After administration, attempt intravenous access and start dextrose 10% at 100 mL/hr. Repeat blood glucose in 15 minutes x 2 and notify provider. Reconstitute powder for injection by adding 1 mL of labor relations specialist-supplied sterile diluent or sterile water for injection to a vial containing 1 mg of the drug, to provide solutions containing 1 mg/mL. Shake vial gently to dissolve. insulin lispro 100 unt/ml injectable solution (1 [...] 60 minutes of last blood glucose check iohexoL (OMNIPAQUE) 350 mg iodine/mL injection 100 mL (1 source) Start: 06-17-2025 End: 06-17-2025 100 mL, intravenous, Once in imaging, contrast, Starting on Tue06/17/25 at 1612, For 1 dose, VESICANT (RED) 1 ml LORazepam 2 mg/ml injection (1 [...] DAILY, # 30 tab(s), Refills(s) 2, Pharmacy: [facility], 178.6, cm, 02/05/25 13:36:00 EDT, Height/Length Dosing, 82.2, kg, 02/05/25 13:36:00 EDT, Weight Dosing Start Date: 04/25/25 Status: Ordered Quantity: 30.0 Unit: tab(s) Repeat number: 3 Start: 01-07-2025 take 1 tablet by alyssa th once daily meloxicam 7.5 mg Tab 7.5 mg = 1 tab(s), Oral, Daily, TAKE 1 TABLET DAILY, # 30 tab(s), Refills(s) 2, Pharmacy: [facility], 178.6, cm, 12/24/24 13:13:00 EST, Height/Length Dosing, 79, kg, 12/24/24 13:13:00 EST, Weight Dosing Start Date: 01/07/25 Status: Ordered Quantity: 30.0 Unit: tab(s) Repeat number: 3 Start: 12-06-2024 take 1 tablet by alyssa th once daily meloxicam 7.5 mg Tab 7.5 mg = 1 tab(s), Oral, Daily, TAKE 1 TABLET DAILY, # 30 tab(s), Refills(s) 2, Pharmacy: [facility], 178.6, cm, 11/01/24 9:21:00 EST, Height/Length [...] take 1 capsule by mouth once daily before breakfast omeprazole (PriLOSEC) 40 mg capsule Take 1 capsule (40 mg total) by mouth every morning before breakfast. 01/07/2025 Start: 12-01-2023 take 1 capsule by mo [facility] once daily omeprazole 40 mg Cap-DR 40 mg = 1 cap(s), Oral, Daily, # 90 cap(s), Refills(s) 1, Pharmacy: [facility], 178, cm, 08/28/24 14:50:00 EDT, Height/Length Dosing, 82.2, kg, 08/28/24 14:50:00 EDT, Weight Dosing Start Date: 08/30/24 Status: Ordered take 2 capsules by m [facility] once daily omeprazole (PRILOSEC) 20 MG delayed release capsule Take 2 capsules by mouth daily Suspended polyethylene glycol 3350 [id number] mg powder for oral solution (1 source) Osmotic Laxative Start: 06-02-2025 17 g, Oral, D AILY PRN, Starting on Tue06/02/25 at 1205, Until Discontinued, Constipation, First line therapy for constipation pravastatin sodium 20 mg oral tablet (20 sources) HMG-CoA Reductase Inhibitor Start: 06-02-2025 take 40 mg by mouth once daily 40 mg, Oral, DAILY, First dose on Tue06/02/25 at 1415, Until Discontinued Start: 10-09-2014 take 1 tablet by alyssa th in the morning pravastatin (PRAVACHOL) 40 mg tablet Take 1 tablet (40 mg total) by mouth in the morning. 10/04/2024 pravastatin (Pra vachol) 20 MG tablet Active Comment on above: Take 1 tablet by alyssa th daily at bedtime. sodium chloride 1000 mg oral tablet (20 sources) Start: 06-19-2025 End: 06-20-2025 take 1000 mg by mouth twice daily 1,000 mg, oral, 2 times daily, First dose on Tue06/19/25 at 0915 Start: 06-17-2025 10 mL, intrave nous, As needed, line care, Starting on Tue06/17/25 at 1612 Start: 06-17-2025 End: 06-17-2025 80 mL, intravenous, Once in imaging, pre/post contrast, Starting on Tue06/17/25 at 1612, For 1 dose Start: 06-03-2025 End: 06-03-2025 40 mL/hr, IntraVENous, RAÚL NUOUS, Starting on Tue06/03/25 at 2100, Until Tue06/03/25 [...] HOURS, First dose (after last modification) on [place] 06/02/25 at 1415, Until Discontinued Start: 06-02-2025 IntraVENous, [...] After every IV line use Start: 05-14-2025 End: 06-05-2025 take 1000 mg by mouth three times daily 1,000 mg, oral, 3 times daily around food, First dose (after last modification) on [place] 06/20/25 at 1700 Start: 05-14-2025 Sodium Chlorid e 1 g oral tablet See Instructions, Take 1g BID daily, # 180 tab(s), Refills(s) 0, [id number] 178.6, cm, 05/09/25 8:18:00 EDT, Height/Length Dosing, 80.6, kg, 05/09/25 8:18:00 EDT, Weight Dosing Start Date: 05/14/25 Status: Ordered Quantity: 180.0 Unit: tab(s) Repeat number: 1 Start: 02-06-2025 Sodium Chlorid e 1 g oral tablet See Instructions, Take 1g BID daily, # 60 tab(s), Refills(s) 3, [id number] 178.6, cm, 02/05/25 13:36:00 EDT, Height/Length Dosing, 82.2, kg, 02/05/25 13:36:00 EDT, Weight Dosing Start Date: 02/06/25 Status: Ordered Quantity: 60.0 Unit: tab(s) Repeat number: 4 Start: 01-24-2025 take 1 tablet by alyssa th twice daily Sodium Chloride 1 g oral tablet See Instructions, 1 gram orally BID, # 180 tab(s), Refills(s) 0, Pharmacy: [facility], 178.6, cm, 01/24/25 13:29:00 EDT, Height/Length Dosing, 82.7, kg, 01/24/25 13:29:00 EDT, Weight Dosing Start Date: 01/24/25 Status: Ordered Start: 01-07-2025 take 1 tablet by mouth once da rasta Sodium Chloride 1 g oral tablet See Instructions, 1 gram orally daily, # 90 tab(s), Refills(s) 0, Pharmacy: [id number], 178.6, cm, 12/24/24 13:13:00 EST, Height/Length Dosing, 79, kg, 12/24/24 13:13:00 EST, Weight Dosing Start Date: 01/07/25 Status: Ordered Start: 12-26-2024 take 1 tablet by mouth once da rasta Sodium Chloride 1 g oral tablet See Instructions, 1 gram orally daily, # 90 tab(s), Refills(s) 0, Pharmacy: [facility], 178.6, cm, 12/24/24 13:13:00 EST, Height/Length Dosing, 79, kg, 12/24/24 13:13:00 EST, Weight Dosing Start Date: 12/26/24 Status: Ordered Start: 12-17-2024 take 1 tablet by mouth once da rasta Sodium Chloride 1 g oral tablet See Instructions, 1 gram orally daily, # 90 tab(s), Refills(s) 0, Pharmacy: [facility], 178.6, cm, 12/17/24 15:05:00 EST, Height/Length Dosing, 78.5, kg, 12/17/24 15:05:00 EST, Weight Dosing Start Date: 12/17/24 Status: Ordered Start: 06-27-2024 take 1 tablet by mouth once da rasta Sodium Chloride 1 g oral tablet See Instructions, 1 gram orally daily, # 90 tab(s), Refills(s) 0, [id number], cm, 06/11/24 12:53:00 EDT, Height/Length [...] 90 tab(s), Refills(s) 2, [id number] 180.5, cm, 03/20/24 15:05:00 EDT, Height/Length [...] DAY, # 90 tab(s), Refills(s) 2, Pharmacy: [facility], 178.2, cm, 12/01/23 13:40:00 EST, Height/Length Dosing, 85.5, kg, 12/01/23 13:40:00 EST, Weight Dosing Start Date: 12/23/23 Status: Ordered tamsulosin hydrochloride 0.4 mg oral capsule (20 sources) alpha-Adrenergic Chema Start: 10-14-2014 take 0.4 mg by mouth once daily at mealtime 0.4 mg, Oral, DAILY, First dose on Tue06/02/25 at 1415, Until Discontinued, Do not crush or break. Give 30 minutes after a full meal to limit risk of orthostatic hypotension/falls. Comment on above: Take 1 capsule by mo uth daily at bedtime. tolvaptan (SAMSCA) pre-split tablet [...] the patient anuric? No ubidecarenone 100 mg oral capsule (15 sources) End: 06-17-2025 take 1 capsule by mouth once in the morning coenzyme Q10 100 mg capsule Take 1 capsule (100 mg total) by mouth in the morning. 06/17/2025 Discontinued (Duplicate Listing) ubidecarenone 100 mg / vitam in e 5 unt oral capsule (3 sources) take 1 capsule by mo uth in the morning coenzyme [id number] E 100-5 mg-unit capsule Take 100 mg by mouth in the morning. Suspended urea (URE-NA) 15 gram powder in packet (2 sources) take 1 dose by mouth in the morning urea (URE-NA) 15 gram powder in packet Take 1 packet (15 g total) by mouth in the morning. Suspended take 1 dose by mouth in the morn ing urea (URE-NA) 15 gram powder in packet Take 1 packet (15 g total) by mouth in the morning. warfarin sodium 2.5 mg oral tablet (20 sources) Vitamin K Antagonist Start: 06-20-2025 End: 06-22-2025 2.5 mg, oral, User Specified (Once per day on Tuesday), First dose on Tue06/20/25 at 1600, To be given on SPECIFIC DAYS Food-Drug Interaction Education Required Look-alike/sound-alike medication - verify indication for use Avoid intake of foods with large amounts of vitamin K Enteral Feeding: If patient is on tube feedings, avoid formulas containing soy protein Transition to oral diet may require decrease in warfarin dose, Target INR: 2 - 3, Indication: Atrial fibrillation/embolism, Hold warfarin & notify prescriber if INR greater than: 3.5 Start: 06-02-2025 End: 06-05-2025 2.5 mg, Oral, ONCE Warfarin, 1 dose, On Tue06/02/25 at 1800, Indication of Use: A Fib/A Flutter, What is the patient's goal INR? 2.0 - 3.0, Review INR prior to administration. Hazardous med- See facility policy for handling/disposal Start: 03-06-2024 End: 06-22-2025 5 mg, oral, User Specified ( Once per day on Tuesday), First dose on Tue06/19/25 at 1700, To be given on SPECIFIC DAYS Food-Drug Interaction Education Required Look-alike/sound-alike medication - verify indication for use Avoid intake of foods with large amounts of vitamin K Enteral Feeding: If patient is on tube feedings, avoid formulas containing soy protein Transition to oral diet may require decrease in warfarin dose, Target INR: 2 - 3, Indication: Atrial fibrillation/embolism, Hold warfarin & notify prescriber if INR greater than: 3.5 Start: 12-01-2023 take 0.5 tablet by m [...] 1/2 tablet orally every other day Active Problems Active Problems Problem Classification Problem Date Documented Date Episodic/Chronic Abdominal hernia (11 sources) Inguinal hernia; Translations: [Unilateral inguinal hernia, without obstruction or gangrene, not specified as recurrent] Onset: 4 Episodic Acute cerebrovascular disease (4 sources) Thrombotic stroke; 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] Onset: 5 06-23-2025 Chronic Allergic reactions (1 source) Dermatitis, unspecified Episodic Cardiac dysrhythmias (20 sources) Atrial fibrillation; Translations: [Unspecified atrial fibrillation] Onset: 4 Chronic Coagulation and hemorrhagic disorders (2 sources) Hypercoagulability state; Translations: [Other thrombophilia] Onset: 5 06-02-2025 Chronic Coronary atherosclerosis and other heart disease (1 source) Coronary atherosclerosis; Translations: [Atherosclerotic heart disease of ka[place] coronary artery without angina pectoris] Onset: 4 [...] sources) Long-term current use of anticoagulant; Translations: [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] Episodic Other aftercare (3 sources) correction (current) use of anticoagulants Episodic Other aftercare (1 source) Post-discharge follow-up 12-17-2024 Episodic Other aftercare (2 sources) Anticoagulant effect; Translations: [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] Onset: 5 06-02-2025 Episodic Other and unspecified benign neoplasm (17 sources) Melanocytic nevus of skin 03-08-2024 Episodic Other connective tissue disease (18 sources) Triggering of digit 02-02-2024 Episodic Other connective tissue disease (1 source) Acquired trigger finger of right little finger; Translations: [Trigger finger, right little finger] Onset: 4 Episodic Other connective tissue disease (1 source) [...] [Carpal tunnel syndrome, left upper limb] Onset: 4 Chronic Other nervous system disorders (2 sources) [...] vascular disease; Translations: [Atherosclerotic heart disease of ka[place] coronary artery without angina pectoris] Onset: 5 [...] of prostate] Onset: 3 Unclassified (1 source) correction (current) use of anticoagulants; Translations: [correction (current) use of anticoagulants] Onset: 3 Unclassified (1 source) Body mass index 20-24 - normal 12-17-2024 Unclassified (6 sources) Non-smoker 12-17-2024 Past or Other Problems Problem Classification Problem Date Documented Da te Episodic/Chronic Mood disorders (1 source) Mood disorders Onset: 06-17-2025 06-17-2025 Results Test Name Value Interpretation Reference Range Facility Sodiumon 07-12-2025 Sodium [Moles/Vol] 131 mmol/L Low 135-145 [facility] Comment on above: Performed By: #### 2 [id number] #### [facility] [address] [place] [address] Ambulatory Visit Summaryon 0 07-11-2025 Ambulatory Visit Summary Ambulatory Visit Summary DARIEL ZABALA :1940 Visit Date:07/11/2025 Ambulatory Visit Instructions Your Diagnosis CVA (cerebrovascular accident) Hyponatremia BMI 24.0-24.9, adult Nonsmoker Your Care Team Attending Physician - YANIQUE MCNEILL CNP Primary Care Physician - YANIQUE MCNEILL CNP This Is Your Medications List Contact prescribing physician if questions or concerns Non-Formulary Medication (Ure-Na) Turmeric (Turmeric 500 mg oral capsule) apixaban (Eliquis 5 mg oral tablet) aspirin (aspirin 81 mg Oral EC Tab) atenolol (atenolol 25 mg Tab) cholecalciferol (D3) cyanocobalamin (Vitamin B12) finasteride (finasteride 5 mg Tab) gabapentin (gabapentin 300 mg Cap) glimepiride (glimepiride 2 mg Tab) levothyroxine (levothyroxine 25 mcg (0.025 mg) Tab) lisinopril (lisinopril 10 mg Tab) meloxicam (meloxicam 7.5 mg Tab) midodrine (midodrine 5 mg Tab) omeprazole (omeprazole 40 mg Cap-DR) pravastatin (pravastatin 40 mg Tab) tadalafil (Cialis 2.5 mg oral tablet) tamsulosin (tamsulosin 0.4 mg Cap) ubiquinone (ubiquinone 100 mg oral capsule) warfarin (warfarin 5 mg Tab) [Image Removed: STOP]Stop taking these medications cephalexin (cephalexin 500 mg Cap) ubiquinone (CoQ10) urea (urea 15 g oral powder for reconstitution) Procedures Performed Carpal tunnel release (11/19/2024), Carpal tunnel release (03/26/2024), Carpal tunnel release, Nose, Release of trigger finger, Surgery. Discharge Vitals Temperature (Oral) 36.8 ???C Heart Rate (Peripheral) 66 Blood Pressure 112/78 Height 178 cm Height 70 in Weight 76.2 kg Weight 167.992 lb BMI 24.05 What to do next Scheduled Follow-Up Appointments Tuesday 10:40 AM EDT With: YANIQUE MCNEILL CNP Where: [address] [id number] 8:00 AM EDT With: Where: [address] [id number]- Medications What How Much When Why Instructions Unchanged apixaban (Eliquis 5 mg oral tablet) 2 times a day 5 Unknown, oral, 0 Refill(s), Take 1 tablet (5 mg total) by mouth in the morning and 1 tablet (5 mg total) before bedtime. Do all this for 30 days. Contact prescribing physician if questions or concerns Unchanged aspirin (aspirin 81 mg Oral EC Tab) 81 Unknown, oral, 0 Refill(s), Take 1 tablet (81 mg total) by mouth in the morning. Contact prescribing physician if questions or concerns Unchanged atenolol (atenolol 25 mg Tab) See [...] concerns Unchanged glimepiride (glimepiride 2 mg Tab) 1 Tablets By Mouth Every day Contact prescribing physician if questions or concerns Unchanged levothyroxine (levothyroxine 25 mcg (0.025 mg) Tab) See instructions TAKE 1 TABLET BY MOUTH DAILY ON AN EMPTY STOMACH Contact prescribing physician if questions or concerns Unchanged lisinopril (lisinopril 10 mg Tab) Contact prescribing physician if questions or concerns Unchanged meloxicam (meloxicam 7.5 mg Tab) 1 Tablets By Mouth Every day TAKE 1 TABLET DAILY Contact prescribing physician if questions or concerns Unchanged midodrine (midodrine 5 mg Tab) 3 times a day 5 Unknown, oral, 0 Refill(s), Take 1 tablet (5 mg total) by mouth 3 (three) times a day for 30 days. Contact prescribing physician if questions or concerns Unchanged Non-Formulary Medication (Ure-Na) See instructions Hyponatremia DM type 2 causing vascular disease BMI 23.0-23.9, adult Nonsmoker Natural Lemon Squaxin flavor Contact prescribing physician if questions or concerns Unchanged omeprazole (omeprazole 40 mg Cap-DR) 1 Capsules By Mouth Every day Contact prescribing physician if questions or concerns Unchanged pravastatin (pravastatin 40 mg Tab) 1 Tablets By Mouth Every day Contact prescribing physician if questions or concerns Unchanged tadalafil (Cialis 2.5 mg oral tablet) 1 Tablets By Mouth Every day as needed for for erectile dysfunction Contact prescribing physician if questions or concerns Unchanged tamsulosin (tamsulosin 0.4 mg Cap) 1 Capsules By Mouth Every day Contact prescribing physician if questions or concerns Unchanged Turmeric (Turmeric 500 mg oral capsule) 1 Capsules By Mouth Every day as needed for Prop (more content not included)... Normal [facility] Family Medicine Office/Clini c Noteon 07-11-2025 Family Medicine Office/Clinic Note Family Medicine Office/Clinic Note Chief Complaint TCM visit The patient presents for medication management and sodium level evaluation. [facility] Staff Pt presents today for TCM visit. Hospital: [facility] Admission date: 06/17/25 Discharge date: 06/23/25 Symptoms the patient presented with: CVA & Low Sodium Current concerns: Concerned with medications. History of Present Illness 85-year-old male presenting with his for a TCM appointment following discharge from the [facility]. He is here for sodium level evaluation and medication management. The patient reports issues with medication organization, which is being addressed by a home visit from a healthcare provider to ensure proper medication management. Additionally, there is a concern regarding hyponatremia, prompting a blood draw to assess sodium levels. Review of Systems PHQ Score Initial Depression Screen Score: 0 SCORE Constitutional: no fever, no chills, no sweats, no weakness Skin: no Jaundice, no rash, no lesions, nopetechiae ENMT: no ear pain, no sore throat, no congestion, no hoarseness Respiratory: no shortness of breath, no cough, no orthopnea, no wheezing Cardiovascular: no chest pain, no palpitations, no edema Gastrointestinal: no nausea, no vomiting, no diarrhea, no GI bleeding Genitourinary: no dysuria, no hematuria, no discharge, no pain Musculoskeletal: no back pain, no trauma Neurologic: no headache, no dizziness, no numbness, no weakness Psychiatric: no sleeping problems, no irritability, no mood swings/depression. Heme/Lymph: no bleeding tendency, no bruising tendency, no petechiae, no swollen nodes Allergy/Immunologic: no seasonal allergies, no food allergies, no recurrent infections, no impaired immunity Additional ROS info: Except as noted in the above Review of Systems and in the History of Present Illness all other systems have been reviewed and are negative or noncontributory. Physical Exam Vitals & Measurements T: 36.8 ???C(Oral) HR: 66(Peripheral) BP: 112/78 SpO2: 99% HT: 70 in HT: 178 cm WT: 76.2 kg WT: 167.992 lb BMI: 24.05 General: alert, no acute distress Skin: warm, dry Head: no trauma, normocephalic Neck: Trachea midline, no adenopathy, no tenderness Eye: normal conjunctiva, sclera clear Cardiovascular: regular rate and rhythm, normal peripheral perfusion Respiratory: Lungs CTA, respirations non labored Gastrointestinal: soft, non distended, no tenderness, no guarding. Back: No tenderness, Normal ROM, Normal alignment. Extremities: no deformity, no trauma Neurological: oriented x 4, LOC appropriate for age, CN II-XII intact, motor strength equal & normal bilaterally, sensation equal & normal bilaterally, speech normal - Respiratory: Auscultation performed with instructions for deep breathing Assessment/Plan 1. CVA (cerebrovascular accident) (I63.9: Cerebral infarction, unspecified) Stable Ambulating appropriately F/U one month Ordered: Discharge medications reconciled with current medications in outpatient record 1111F 2. Hyponatremia (E87.1: Hypo-osmolality and hyponatremia) - Plan to draw blood to check sodium levels to assess current status of hyponatremia. - Continue Ordered: Discharge medications reconciled with current medications in outpatient record [id number] Sodium Level 3. BMI 24.0-24.9, adult (Z68.24: Body mass index [BMI] 24.0-24.9, adult) BMI 24.05 4. Nonsmoker (Z78.9: Other specified health status) Encouraged to continue as a non- smoker Follow-up No qualifying data available Patient Education Stroke Prevention, [id number] Problem List/Past Medical History Ongoing ASCVD (arteriosclerotic cardiovascular disease) Back spasm BMI 23.0-23.9, adult BMI 24.0-24.9, adult BMI 25.0-25.9,adult Carpal tunnel syndrome, left [...] Carpal tunnel release (03/26/2024), Carpal tunnel release, Nose, Release of trigger finger, Surgery. Medications aspirin 81 mg Oral EC Tab atenolol 25 mg Tab, See Instructions, 2 refills Cialis 2.5 mg oral tablet, 2.5 mg= 1 tab(s), Oral, Daily, PRN D3, See Instructions Eliquis 5 mg oral tablet, BID finasteride 5 mg Tab, 5 mg= 1 tab(s), Oral, Daily, 1 refills gabapentin 300 mg Cap, 300 mg= 1 cap(s), Oral, Daily, 1 refills glimepiride 2 mg Tab, 2 mg= 1 tab(s), Oral, Daily, 1 refills levothyroxine 25 mcg (0.025 mg) Tab, See Instructions lisinopril 10 mg Tab meloxicam 7.5 mg Tab, 7.5 mg= 1 tab(s), Oral, Daily midodrine 5 mg Tab, TID omeprazole 40 mg Julio-DR, (more content not included)... Normal [facility] Comment on above: Result Comment: Elec tronically Signed By: YANIQUE MCNEILL CNP\.br\Date and Time Signed: 07/11/25 15:05 EDT [facility] [place][Note 2] 07-08-20 [facility] Case Information Case Priority: None Programs: -- Referral Source: [employer] Referral Reason: Care coordination Case Type: Transition Care Management Risk Score: -- Case Status: Enrolled (July 08, 2025) Date Assigned: July 05, 2025 Assigned By: Alec Rodrigez Date Enrolled: July 08, 2025 Assigned Primary Personnel: Alec Rodrigez Assigned Secondary Personnel: -- Case Physician: YANIQUE MCNEILL CNP Problems Ongoing ASCVD (arteriosclerotic cardiovascular disease) Back [...] Carpal tunnel release (03/26/2024), Carpal tunnel release, Nose, Release of trigger finger, Surgery. Home Medications aspirin 81 mg Oral EC Tab atenolol 25 mg Tab, See Instructions, 2 refills cephalexin 500 mg Cap Cialis 2.5 mg oral tablet, 2.5 mg= 1 tab(s), Oral, Daily, PRN CoQ10, See Instructions, PRN D3, See Instructions Eliquis 5 mg oral tablet, BID finasteride 5 mg Tab, 5 mg= 1 tab(s), Oral, Daily, 1 refills gabapentin 300 mg Cap, 300 mg= 1 cap(s), Oral, Daily, 1 refills glimepiride 2 mg Tab, 2 mg= 1 tab(s), Oral, Daily, 1 refills levothyroxine 25 mcg (0.025 mg) Tab, See Instructions lisinopril 10 mg Tab meloxicam 7.5 mg Tab, 7.5 mg= 1 tab(s), Oral, Daily midodrine 5 mg Tab, TID omeprazole 40 mg Cap-DR, 40 mg= 1 cap(s), Oral, Daily pravastatin 40 mg Tab, 40 mg= 1 tab(s), Oral, Daily tamsulosin 0.4 mg Cap, 0.4 mg= 1 cap(s), Oral, Daily, 3 refills Turmeric 500 mg oral capsule, 500 mg= 1 cap(s), Oral, Daily, PRN ubiquinone 100 mg oral capsule Ure-Na, See Instructions urea 15 g oral powder for reconstitution, Oral, Daily Vitamin B12, 50 mcg, Oral, Daily, PRN warfarin 5 mg Tab, 5 mg= 1 tab(s), Oral, Daily Allergies No Known Medication Allergies Social History Alcohol - Low Risk, 05/03/2024 Past, Liquor, 1-2 times per month, 1 drinks/episode average. Previous treatment: None. Alcohol use interferes with work or home: No. Drinks more than intended: No. Others hurt by drinking: No. Ready to change: No. Household alcohol concerns: No., 05/09/2025 Substance Abuse - Denies Substance Abuse, 03/06/2024 Never, 05/09/2025 Tobacco - Denies Tobacco Use, 05/03/2024 Never (less than 100 in lifetime) Tobacco Use:. Never Smokeless Tobacco Use:. Household tobacco concerns: No. Yes, 07/04/2025 Family History Diabetes mellitus type 2: Mother. Screenings and Assessments 07/08/25 09:31:00 Result Name Value Comment Phone Call Monitoring Consent Agreed to continue call Phone Verification Patient Information Full name, street address and date of verified CM Program Enrollment Provides verbal consent for enrollment Goals and Interventions Care Plan Progress Note Admit Date: 06/23/25 WAB Date of Discharge: 07/04/25 Follow-up appointment scheduled? yes, TCM with Pedro Mcneill, 8/28/25 at 1420 Did you understand your discharge instructions? yes Are you able to follow them? yes Did you receive new medications? no Have you filled the Rx's? n/a Are you taking them as prescribed? n/a Are you having difficulty eating or swallowing your pills? no Are you having any stomach upset, diarrhea or constipation? had upset stomach yesterday, since has resolved How are you sleeping? good, go to bed at 2100, get up around [id number], sleep through the night Are you having any pain? slight, very slight, knee pain every now and then Do you have everything you need at home to care for yourself? yes Do you have Home Health? no Called patient for initial Transitional Care Management Program call. Readmission risk is not available. No d/c summary/instructions available at this time. Patient advised to bring to [facility] follow up. Patient was admitted to [facility] for CVA and low sodium r/t SIADH. Patient states he is doing good, feeling alright. Notes yesterday, he had an upset stomach, has since resolved. Patient states he is eating good. He is drinking good. Notes bowels move 2 times per day. Notes some burning with urination, however, he r/t to his prostate issue. Notes he has had this for years and takes medication for it. Patient denies weakness, only notes slight, very slight knee pain on occasion. Notes he does not use his walker much. Denies falls. Denies palpitations or CP. Patient does not monitor BP or HR at home. Denies any nose bleeds. Patient states overall 'everything is good.' (more content not included)... Normal [facility] Family Medicine Office/Clini c Noteon 07-04-2025 Family Medicine Office/Clinic Note Family Medicine Office/Clinic Note Chief Complaint Discuss Medications The patient presents with concerns regarding low sodium levels. History of Present Illness 85-year-old male presenting with low sodium levels. The issue of hyponatremia has been persistent, and the patient is currently taking sodium chloride tablets and packets to manage this condition. The exact cause of the hyponatremia remains unclear, and the patient is advised to continue the current treatment until further blood tests are conducted. The patient was recently discharged from a facility and is currently under transitional care. A child caregiver private home is expected to contact the patient to discuss further needs and to schedule a follow-up visit within the next week. Review of Systems PHQ Score Initial Depression Screen Score: 0 SCORE Physical Exam Vitals & Measurements T: 36.8 ???C(Oral) HR: 74(Peripheral) RR: 18 BP: 128/82 SpO2: 97% HT: 70 in HT: 178 cm WT: 164.685 lb WT: 74.7 kg BMI: 23.58 General: alert, no acute distress Cardiovascular: regular rate and rhythm, normal peripheral perfusion Respiratory: Lungs CTA, respirations non labored Extremities: no deformity, no trauma Neurological: oriented x 4, LOC appropriate for age Assessment/Plan 1. Hyponatremia (E87.1: Hypo-osmolality and hyponatremia) - Continue sodium chloride tablets and packets to manage sodium levels. - Recheck blood sodium levels to assess the effectiveness of the treatment. - Follow-up visit to be scheduled within the next week to evaluate the patient's condition and adjust treatment as necessary. 2. Patient receiving more than 8 medications (Z78.9: Other specified health status) Medications reviewed with patient and his spouse Follow-up No qualifying data available Patient Education Hyponatremia, [id number] Problem List/Past Medical History Ongoing ASCVD (arteriosclerotic [...] Carpal tunnel release (03/26/2024), Carpal tunnel release, Nose, Release of trigger finger, Surgery. Medications aspirin 81 mg Oral EC Tab atenolol 25 mg Tab, See Instructions, 2 refills cephalexin 500 mg Cap Cialis 2.5 mg oral tablet, 2.5 mg= 1 tab(s), Oral, Daily, PRN CoQ10, See Instructions, PRN D3, See Instructions Eliquis 5 mg oral tablet, BID finasteride 5 mg Tab, 5 mg= 1 tab(s), Oral, Daily, 1 refills gabapentin 300 mg Cap, 300 mg= 1 cap(s), Oral, Daily, 1 refills glimepiride 2 mg Tab, 2 mg= 1 tab(s), Oral, Daily, 1 refills levothyroxine 25 mcg (0.025 mg) Tab, See Instructions lisinopril 10 mg Tab meloxicam 7.5 mg Tab, 7.5 mg= 1 tab(s), Oral, Daily midodrine 5 mg Tab, TID omeprazole 40 mg Cap-DR, 40 mg= 1 cap(s), Oral, Daily pravastatin 40 mg Tab, 40 mg= 1 tab(s), Oral, Daily tamsulosin 0.4 mg Cap, 0.4 mg= 1 cap(s), Oral, Daily, 3 refills Turmeric 500 mg oral capsule, 500 mg= 1 cap(s), Oral, Daily, PRN ubiquinone 100 mg oral capsule Ure-Na, See Instructions urea 15 g oral powder for reconstitution, Oral, Daily Vitamin B12, 50 mcg, Oral, Daily, PRN warfarin 5 mg Tab, 5 mg= 1 tab(s), Oral, Daily Allergies No Known Medication Allergies Social History Alcohol - Low Risk, 05/03/2024 Past, Liquor, 1-2 times per month, 1 drinks/episode average. Previous treatment: None. Alcohol use interferes with work or home: No. Drinks more than intended: No. Others hurt by drinking: No. Ready to change: No. Household alcohol concerns: No., 05/09/2025 Substance Abuse - Denies Substance Abuse, 03/06/2024 Never, 05/09/2025 Tobacco - Denies Tobacco Use, 05/03/2024 Never (less than 100 in lifetime) Tobacco Use:. Never Smokeless Tobacco Use:. Household tobacco concerns: No. Yes, 07/04/2025 Family History Diabetes mellitus type 2: Mother. Immunizations Vaccine Date Status Comments influenza virus vaccine, inactivated 09/29/2024 Recorded influenza virus vaccine, inactivated - Not Given Patient Refuses pneumococcal 20-valent conjugate vaccine 09/21/2023 Recorded influenza virus vaccine, inactivated 08/19/2023 Recorded pneumococcal 13-valent vaccine 03/31/2015 Recorded influenza virus vaccine, inactivated 08/02/2014 Recorded Normal [facility] Comment on above: Result Comment: Elec tronically Signed By: YANIQUE MCNEILL CNP\Date and Time Signed: 07/04/25 14:55 EDT Basic Metabolic Panelon 06-14 Anion gap [Moles/Vol] 7 mmol/L 5 - 15 mmol/L [facility] Calcium [Mass/Vol] 9.9 mg/dL 8.5 - 10. 5 mg/dL [facility] Chloride [Moles/Vol] 95 mmol/L Low 98 - 10 9 mmol/L [facility] CO2 [Moles/Vol] 31 mmol/L 22 - 32 mmol/L [facility] Creatinine [Mass/Vol] 0.8 mg/dL 0.60 - 1.30 mg/dL [facility] Comment on above: METHOD TRACEABLE TO IDRI STANDARD EGFR Non-Race Dependent 88 - PINF [facility] Comment on above: Reported eGFR is bas ed on the CKD-EPI 2020 equation that does not use a race coefficient. Glucose [Mass/Vol] 101 mg/dL High 65 - 99 mg/dL [facility] Potassium [Moles/Vol] 4.5 mmol/L 3.5 - 5.0 mmol/L [facility] Sodium [Moles/Vol] 133 mmol/L Low 134 - 146 mmol/L [facility] Urea nitrogen [Mass/Vol] 29 mg/dL High 5 - 27 mg/dL [facility] CBC auto differentialon 06-14 Basophils (Bld) [#/Vol] 0.1 10*3/uL 0.0 - 0.2 10*3/uL [facility] Basophils/100 WBC (Bld) 1.5 % [facility] Differential cell count method Nom (Bld) AUTOMATED DIFFERENTIAL [facility] Eosinophils (Bld) [#/Vol] 0.1 10*3/uL 0.0 - 0.4 10*3/uL [facility] Eosinophils/100 WBC (Bld) 3 % [facility] Erythrocyte distribution width (RBC) [Ratio] 13.8 % 11.5 - 15 % [facility] Hematocrit (Bld) [Volume fraction] 40 % 39 - 50 % [facility] Hemoglobin (Bld) [Mass/Vol] 13.8 g/dL 13 - 17 g/dL [facility] Lymphocytes (Bld) [#/Vol] 1.5 10*3/uL 1.0 - 3.5 10*3/uL [facility] Lymphocytes/100 WBC (Bld) 34.7 % [facility] MCH (RBC) [Entitic mass] 31.3 pg 27 - 34 pg [facility] MCHC (RBC) [Mass/Vol] 34.5 g/dL 32 - 3 6 g/dL [facility] MCV (RBC) [Entitic vol] 91 fL 80 - 100 fL [facility] Monocytes (Bld) [#/Vol] 0.4 10*3/uL 0.0 - 0.9 10*3/uL [facility] Monocytes/100 WBC (Bld) 10.2 % [facility] Neutrophils (Bld) [#/Vol] 2.1 10*3/uL 1.5 - 6.6 10*3/uL [facility] Neutrophils/100 WBC (Bld) 50.6 % [facility] Platelet mean volume (Bld) [Entitic vol] 9.5 fL 7 - 12 fL [facility] Platelets (Bld) [#/Vol] 234 10*3/uL [facility] RBC (Bld) [#/Vol] 4.4 10*6/uL [facility] WBC LM Ql (Sput) 4.2 [facility] ECG 12 Leadon 06-23-2025 TRACEMASTERVUE [facility] Electrolyte panelon 06-23-20 25 Anion gap [Moles/Vol] 10 mmol/L 5 - 15 mmol/L [facility] Chloride [Moles/Vol] 96 mmol/L Low 98 - 10 9 mmol/L [facility] CO2 [Moles/Vol] 27 mmol/L 22 - 32 mmol/L [facility] Interpretation and review of laboratory results Abnormal [facility] Potassium [Moles/Vol] 4.2 mmol/L 3.5 - 5.0 mmol/L [facility] Sodium [Moles/Vol] 133 mmol/L Low 134 - 146 mmol/L [facility] Ionized calciumon 06-23-2025 Calcium.ionized ISE [Moles/Vol] 5.1 mg/dL 4.5 - 5.3 mg/dL [facility] Interpretation and review of laboratory results Normal [facility] Magnesiumon 06-23-2025 Magnesium [Mass/Vol] 1.6 mg/dL Low 1.8 - 2 .6 mg/dL [facility] No Panel Informationon 06-23 Interpretation and review of laboratory results Abnormal [facility] Phosphoruson 06-23-2025 Interpretation and review of laboratory results Normal [facility] Phosphate [Mass/Vol] 3.5 mg/dL 2.4 - 4 .9 mg/dL [facility] Protime & INROrdered By: Lucy Branham on 06-23-2025 INR Coag (Platelet poor plasma or blood) [Relative time] 2.8 High 0.9 - 1.2 [facility] Interpretation and review of laboratory results Abnormal [facility] PT Coag (PPP) [Time] 32.1 s High [facility] Anti XA unfractionated hepar inOrdered By: Mindy Conklin on 06-22-2025 Heparin unfractionated Chromogenic method Qn (PPP) 0.56 [facility] Comment on above: Optimal time for raimundo ting is 6 hrs post dosage This test is specific for monitoring patients on UFH, and is not recommended for use with other Anti-Xa medications. Interpretation and review of laboratory results Normal [facility] Basic Metabolic Panelon Anion gap [Moles/Vol] 8 mmol/L 5 - 15 mmol/L [facility] Calcium [Mass/Vol] 9.1 mg/dL 8.5 - 10. 5 mg/dL [facility] Chloride [Moles/Vol] 93 mmol/L Low 98 - 10 9 mmol/L [facility] CO2 [Moles/Vol] 26 mmol/L 22 - 32 mmol/L [facility] Creatinine [Mass/Vol] 0.76 mg/dL 0.60 - 1.30 mg/dL [facility] Comment on above: METHOD TRACEABLE TO IDMS STANDARD EGFR Non-Race Dependent 89 - PINF [facility] Comment on above: Reported eGFR is bas ed on the CKD-EPI 2020 equation that does not use a race coefficient. Glucose [Mass/Vol] 135 mg/dL High 65 - 99 mg/dL [facility] Interpretation and review of laboratory results Abnormal [facility] Potassium [Moles/Vol] 4.3 mmol/L 3.5 - 5.0 mmol/L [facility] Sodium [Moles/Vol] 127 mmol/L Low 134 - 146 mmol/L [facility] Urea nitrogen [Mass/Vol] 35 mg/dL High 5 - 27 mg/dL [facility] CBC auto differentialon Basophils (Bld) [#/Vol] 0.1 10*3/uL 0.0 - 0.2 10*3/uL [facility] Basophils/100 WBC (Bld) 1.3 % [facility] Differential cell count method Nom (Bld) AUTOMATED DIFFERENTIAL [facility] Eosinophils (Bld) [#/Vol] 0.1 10*3/uL 0.0 - 0.4 10*3/uL [facility] Eosinophils/100 WBC (Bld) 2 % [facility] Erythrocyte distribution width (RBC) [Ratio] 13.5 % 11.5 - 15 % [facility] Hematocrit (Bld) [Volume fraction] 36.3 % Low 39 - 50 % [facility] Hemoglobin (Bld) [Mass/Vol] 12.5 g/dL Low 13 - 17 g/dL [facility] Interpretation and review of laboratory results Abnormal [facility] Lymphocytes (Bld) [#/Vol] 1.5 10*3/uL 1.0 - 3.5 10*3/uL [facility] Lymphocytes/100 WBC (Bld) 26.9 % [facility] MCH (RBC) [Entitic mass] 31.2 pg 27 - 34 pg [facility] MCHC (RBC) [Mass/Vol] 34.4 g/dL 32 - 3 6 g/dL [facility] MCV (RBC) [Entitic vol] 91 fL 80 - 100 fL [facility] Monocytes (Bld) [#/Vol] 0.7 10*3/uL 0.0 - 0.9 10*3/uL [facility] Monocytes/100 WBC (Bld) 12.2 % [facility] Neutrophils (Bld) [#/Vol] 3.3 10*3/uL 1.5 - 6.6 10*3/uL [facility] Neutrophils/100 WBC (Bld) 57.6 % [facility] Platelet mean volume (Bld) [Entitic vol] 9.8 fL 7 - 12 fL [facility] Platelets (Bld) [#/Vol] 212 10*3/uL [facility] RBC (Bld) [#/Vol] 4 10*6/uL Low [facility] WBC LM Ql (Sput) 5.6 [facility] Electrolyte panelon 06-22-20 Anion gap [Moles/Vol] 8 mmol/L 5 - 15 mmol/L [facility] Chloride [Moles/Vol] 93 mmol/L Low 98 - 10 9 mmol/L [facility] CO2 [Moles/Vol] 28 mmol/L 22 - 32 mmol/L [facility] Interpretation and review of laboratory results Abnormal [facility] Potassium [Moles/Vol] 4.4 mmol/L 3.5 - 5.0 mmol/L [facility] Sodium [Moles/Vol] 129 mmol/L Low 134 - 146 mmol/L [facility] Anion gap [Moles/Vol] 7 mmol/L 5 - 15 mmol/L [facility] Chloride [Moles/Vol] 94 mmol/L Low 98 - 10 9 mmol/L [facility] CO2 [Moles/Vol] 28 mmol/L 22 - 32 mmol/L [facility] Interpretation and review of laboratory results Abnormal [facility] Potassium [Moles/Vol] 4.4 mmol/L 3.5 - 5.0 mmol/L [facility] Sodium [Moles/Vol] 129 mmol/L Low 134 - 146 mmol/L [facility] Lavender Topon 06-22-2025 Extra Tube Auto Resulted [facility] No Panel Informationon 06-22 [facility] Protime & INRon 06-22-2025 INR Coag (Platelet poor plasma or blood) [Relative time] 1.8 High 0.9 - 1.2 [facility] Interpretation and review of laboratory results Abnormal [facility] PT Coag (PPP) [Time] 19.9 s High [facility] Anti XA unfractionated hepar inon 06-21-2025 Heparin unfractionated Chromogenic method Qn (PPP) 0.37 [facility] Comment on above: Optimal time for raimundo ting is 6 hrs post dosage This test is specific for monitoring patients on UFH, and is not recommended for use with other Anti-Xa medications. Interpretation and review of laboratory results Normal [facility] Heparin unfractionated Chromogenic method Qn (PPP) 0.65 [facility] Comment on above: Optimal time for raimundo ting is 6 hrs post dosage This test is specific for monitoring patients on UFH, and is not recommended for use with other Anti-Xa medications. Interpretation and review of laboratory results Normal [facility] Basic Metabolic Panelon - Anion gap [Moles/Vol] 9 mmol/L 5 - 15 mmol/L [facility] Calcium [Mass/Vol] 9 mg/dL 8.5 - 10. 5 mg/dL [facility] Chloride [Moles/Vol] 93 mmol/L Low 98 - 10 9 mmol/L [facility] CO2 [Moles/Vol] 25 mmol/L 22 - 32 mmol/L [facility] Creatinine [Mass/Vol] 0.72 mg/dL 0.60 - 1.30 mg/dL [facility] Comment on above: METHOD TRACEABLE TO IDRI STANDARD EGFR Non-Race Dependent - PINF [facility] Comment on above: Reported eGFR is bas ed on the CKD-EPI 2020 equation that does not use a race coefficient. Glucose [Mass/Vol] 121 mg/dL High 65 - 99 mg/dL [facility] Interpretation and review of laboratory results Abnormal [facility] Potassium [Moles/Vol] 4.5 mmol/L 3.5 - 5.0 mmol/L [facility] Sodium [Moles/Vol] 127 mmol/L Low 134 - 146 mmol/L [facility] Urea nitrogen [Mass/Vol] 25 mg/dL 5 - 27 mg/dL [facility] C-reactive proteinon 025 CRP [Mass/Vol] 8.9 mg/dL High NINF - 0.7 mg/dL [facility] Interpretation and review of laboratory results Abnormal [facility] CBC auto differentialon Basophils (Bld) [#/Vol] 0.1 10*3/uL 0.0 - 0.2 10*3/uL [facility] Basophils/100 WBC (Bld) 1.1 % [facility] Differential cell count method Nom (Bld) AUTOMATED DIFFERENTIAL [facility] Eosinophils (Bld) [#/Vol] 0 10*3/uL 0.0 - 0.4 10*3/uL [facility] Eosinophils/100 WBC (Bld) 0.9 % [facility] Erythrocyte distribution width (RBC) [Ratio] 13.8 % 11.5 - 15 % [facility] Hematocrit (Bld) [Volume fraction] 40.7 % 39 - 50 % [facility] Hemoglobin (Bld) [Mass/Vol] 14.1 g/dL 13 - 17 g/dL [facility] Lymphocytes (Bld) [#/Vol] 1.5 10*3/uL 1.0 - 3.5 10*3/uL [facility] Lymphocytes/100 WBC (Bld) 28.5 % [facility] MCH (RBC) [Entitic mass] 30.9 pg 27 - 34 pg [facility] MCHC (RBC) [Mass/Vol] 34.7 g/dL 32 - 3 6 g/dL [facility] MCV (RBC) [Entitic vol] 89 fL 80 - 100 fL [facility] Monocytes (Bld) [#/Vol] 0.6 10*3/uL 0.0 - 0.9 10*3/uL [facility] Monocytes/100 WBC (Bld) 12 % [facility] Neutrophils (Bld) [#/Vol] 3 10*3/uL 1.5 - 6.6 10*3/uL [facility] Neutrophils/100 WBC (Bld) 57.5 % [facility] Platelet mean volume (Bld) [Entitic vol] 9.7 fL 7 - 12 fL [facility] Platelets (Bld) [#/Vol] 189 10*3/uL [facility] RBC (Bld) [#/Vol] 4.56 10*6/uL [facility] WBC LM Ql (Sput) 5.3 [facility] CK Totalon 06-21-2025 CK [Catalytic activity/Vol] 26 U/L 24 - 195 U/L [facility] Interpretation and review of laboratory results Normal [facility] CT Head WO contraston 2024 Examination: Noncontrast brain CT Date of Exam:06/21/2025 Clinical History:Confusion Comparison:06/17/2025 Procedure: Multi-detector CT performed through the brain without IV contrast. Automatic exposure control (AEC) was utilized. Findings: There is no intracranial hemorrhage, extra-axial fluid collection, mass effect, or hydrocephalus. Best-white matter differentiation is appropriate. Infarcts may be occult on CT, but grossly no acute infarct identified There is no midline shift. IMPRESSION: 1. No acute findings. 2. See MRI brain dated 06/18/2025. All CT scans at this facility use dose modulation, iterative reconstruction, and/or weight based dosing when appropriate to reduce radiation dose to as low as reasonably achievable. Finalized by Esau Restrepo MD on 06/21/2025 10:56 AM SE[facility]ACS Esau Restrepo MD - 06/21/2025 Examination: Noncontrast brain CT Date of Exam:06/21/2025 Clinical History:Confusion Comparison:06/17/2025 Procedure: Multi-detector CT performed through the brain without IV contrast. Automatic exposure control (AEC) was utilized. Findings: There is no intracranial hemorrhage, extra-axial fluid collection, mass effect, or hydrocephalus. Best-white matter differentiation is appropriate. Infarcts may be occult on CT, but grossly no acute infarct identified There is no midline shift. IMPRESSION: 1. No acute findings. 2. See MRI brain dated 06/18/2025. All CT scans at this facility use dose modulation, iterative reconstruction, and/or weight based dosing when appropriate to reduce radiation dose to as low as reasonably achievable. Finalized by Esau Restrepo MD on 06/21/2025 10:56 AM [facility] Radiology Study observation (narrative) [facility] CT Head WO contrastOrdered B y: Esau Restrepo on 06-21-2025 [facility] Work Phone: Electrolyte panelon 06-21-20 25 Anion gap [Moles/Vol] 8 mmol/L 5 - 15 mmol/L [facility] Chloride [Moles/Vol] 92 mmol/L Low 98 - 10 9 mmol/L [facility] CO2 [Moles/Vol] 26 mmol/L 22 - 32 mmol/L [facility] Interpretation and review of laboratory results Abnormal [facility] Potassium [Moles/Vol] 4.8 mmol/L 3.5 - 5.0 mmol/L [facility] Sodium [Moles/Vol] 126 mmol/L Low 134 - 146 mmol/L [facility] Anion gap [Moles/Vol] 9 mmol/L 5 - 15 mmol/L [facility] Chloride [Moles/Vol] 93 mmol/L Low 98 - 10 9 mmol/L [facility] CO2 [Moles/Vol] 25 mmol/L 22 - 32 mmol/L [facility] Interpretation and review of laboratory results Abnormal [facility] Potassium [Moles/Vol] 4.4 mmol/L 3.5 - 5.0 mmol/L [facility] Sodium [Moles/Vol] 127 mmol/L Low 134 - 146 mmol/L [facility] Anion gap [Moles/Vol] 9 mmol/L 5 - 15 mmol/L [facility] Chloride [Moles/Vol] 90 mmol/L Low 98 - 10 9 mmol/L [facility] CO2 [Moles/Vol] 25 mmol/L 22 - 32 mmol/L [facility] Interpretation and review of laboratory results Abnormal [facility] Potassium [Moles/Vol] 4.6 mmol/L 3.5 - 5.0 mmol/L [facility] Sodium [Moles/Vol] 124 mmol/L Low 134 - 146 mmol/L [facility] Erythrocyte Sedimentation Ra te (ESR)on 06-21-2025 ESR (Bld) [Velocity] 46 mm/h High 0 - 20 mm/h [facility] Interpretation and review of laboratory results Abnormal [facility] Gas panel (BldV)on Arterial patency Wrist artery --pre arterial puncture N/A [facility] Base excess Calc (Bld) [Moles/Vol] 2 mmol/L 0.0 - 2.0 mmol/L [facility] CO2 (BldV) [Partial pressure] 51.8 mm[Hg] High [facility] HCO3 (Bld) [Moles/Vol] 28.7 mmol/L High 20.0 - 24.0 mmol/L [facility] Interpretation and review of laboratory results Abnormal [facility] Oxygen (BldV) [Partial pressure] 29 mm[Hg] Low [facility] Oxygen therapy source and amount [CARE] Room Air [facility] Oxygen/Inspired gas setting [Volume Fraction] Ventilator 21 % [facility] pH (BldV) 7.351 [pH] 7.320 - 7.420 [facility] SaO2% Calculated from oxygen partial pressure (BldV) [Mass fraction] 50 % [facility] Specimen site Narrative N/A [facility] Specimen type Nom (Spec) VENOUS [facility] No Panel Informationon 06-21 [facility] Protime & INRon 06-21-2025 INR Coag (Platelet poor plasma or blood) [Relative time] 1.6 High 0.9 - 1.2 [facility] Interpretation and review of laboratory results Abnormal [facility] PT Coag (PPP) [Time] 17.7 s High [facility] Anti XA unfractionated hepar inon 06-20-2025 Heparin unfractionated Chromogenic method Qn (PPP) 0.62 [facility] Comment on above: Optimal time for raimundo ting is 6 hrs post dosage This test is specific for monitoring patients on UFH, and is not recommended for use with other Anti-Xa medications. Interpretation and review of laboratory results Normal [facility] Basic Metabolic Panelon Anion gap [Moles/Vol] 8 mmol/L 5 - 15 mmol/L [facility] Calcium [Mass/Vol] 9 mg/dL 8.5 - 10. 5 mg/dL [facility] Chloride [Moles/Vol] 89 mmol/L Low 98 - 10 9 mmol/L [facility] CO2 [Moles/Vol] 27 mmol/L 22 - 32 mmol/L [facility] Creatinine [Mass/Vol] 0.73 mg/dL 0.60 - 1.30 mg/dL [facility] Comment on above: METHOD TRACEABLE TO IDRI STANDARD EGFR Non-Race Dependent 90 - PINF [facility] Comment on above: Reported eGFR is bas ed on the CKD-EPI 2020 equation that does not use a race coefficient. Glucose [Mass/Vol] 98 mg/dL 65 - 99 mg/dL [facility] Potassium [Moles/Vol] 4.3 mmol/L 3.5 - 5.0 mmol/L [facility] Sodium [Moles/Vol] 124 mmol/L Low 134 - 146 mmol/L [facility] Urea nitrogen [Mass/Vol] 12 mg/dL 5 - 27 mg/dL [facility] CBC auto differentialon Basophils (Bld) [#/Vol] 0.1 10*3/uL 0.0 - 0.2 10*3/uL [facility] Basophils/100 WBC (Bld) 1 % [facility] Differential cell count method Nom (Bld) AUTOMATED DIFFERENTIAL [facility] Eosinophils (Bld) [#/Vol] 0.1 10*3/uL 0.0 - 0.4 10*3/uL [facility] Eosinophils/100 WBC (Bld) 1.2 % [facility] Erythrocyte distribution width (RBC) [Ratio] 13.8 % 11.5 - 15 % [facility] Hematocrit (Bld) [Volume fraction] 38.1 % Low 39 - 50 % [facility] Hemoglobin (Bld) [Mass/Vol] 13.3 g/dL 13 - 17 g/dL [facility] Interpretation and review of laboratory results Abnormal [facility] Lymphocytes (Bld) [#/Vol] 1.5 10*3/uL 1.0 - 3.5 10*3/uL [facility] Lymphocytes/100 WBC (Bld) 22.4 % [facility] MCH (RBC) [Entitic mass] 31.3 pg 27 - 34 pg [facility] MCHC (RBC) [Mass/Vol] 34.9 g/dL 32 - 3 6 g/dL [facility] MCV (RBC) [Entitic vol] 90 fL 80 - 100 fL [facility] Monocytes (Bld) [#/Vol] 0.7 10*3/uL 0.0 - 0.9 10*3/uL [facility] Monocytes/100 WBC (Bld) 10.7 % [facility] Neutrophils (Bld) [#/Vol] 4.2 10*3/uL 1.5 - 6.6 10*3/uL [facility] Neutrophils/100 WBC (Bld) 64.7 % [facility] Platelet mean volume (Bld) [Entitic vol] 9.5 fL 7 - 12 fL [facility] Platelets (Bld) [#/Vol] 204 10*3/uL [facility] RBC (Bld) [#/Vol] 4.25 10*6/uL [facility] WBC LM Ql (Sput) 6.5 [facility] DISCONTINUE IN PROCESS EEG T ESTINGOrdered By: Documentation Systemgenerated on 06-20-2025 [facility] Work Phone: Electrolyte panelon 06-20-20 25 Anion gap [Moles/Vol] 8 mmol/L 5 - 15 mmol/L [facility] Chloride [Moles/Vol] 90 mmol/L Low 98 - 10 9 mmol/L [facility] CO2 [Moles/Vol] 24 mmol/L 22 - 32 mmol/L [facility] Interpretation and review of laboratory results Abnormal [facility] Potassium [Moles/Vol] 4.8 mmol/L 3.5 - 5.0 mmol/L [facility] Sodium [Moles/Vol] 122 mmol/L Low 134 - 146 mmol/L [facility] Anion gap [Moles/Vol] 8 mmol/L 5 - 15 mmol/L [facility] Chloride [Moles/Vol] 90 mmol/L Low 98 - 10 9 mmol/L [facility] CO2 [Moles/Vol] 24 mmol/L 22 - 32 mmol/L [facility] Interpretation and review of laboratory results Abnormal [facility] Potassium [Moles/Vol] 4.6 mmol/L 3.5 - 5.0 mmol/L [facility] Sodium [Moles/Vol] 122 mmol/L Low 134 - 146 mmol/L [facility] Anion gap [Moles/Vol] 8 mmol/L 5 - 15 mmol/L [facility] Chloride [Moles/Vol] 90 mmol/L Low 98 - 10 9 mmol/L [facility] CO2 [Moles/Vol] 24 mmol/L 22 - 32 mmol/L [facility] Interpretation and review of laboratory results Abnormal [facility] Potassium [Moles/Vol] 4.3 mmol/L 3.5 - 5.0 mmol/L [facility] Sodium [Moles/Vol] 122 mmol/L Low 134 - 146 mmol/L [facility] Holter monitor studyon 06-20 Images from the original result were not included. Continuous video EEG monitoring study Date of Report: 06/20/2025 History: This is a n 85 yo man with altered mental status, concern for seizures. Procedure: Start: 20:37 06/19/2025 End: 06:30 06/20/2025 This is a standard [facility] EEG monitoring report using scalp and ear electrodes in the 10-20 international System. Recording was reviewed with multiple reformatted montages. Quantitative digital analysis data was utilized as needed. Technical Description: No well-defined posterior dominant rhythm was noted. The anterior posterior gradient was absent. The background was continuous and symmetric and consisted of 20-40 uv amplitude polymorphic admixed theta and delta waves. Variability was absent. Reactivity was indeterminate. Sleep changes were not noted. No definite interictal epileptiform activity in the form of spike or sharp wave is noted. Clinical Interpretation: This EEG is abnormal due to the presence of moderate to severe generalized background slowing consistent with moderate to severe bihemispheric cerebral dysfunction that may be seen in postictal states, hypoxic, toxic or metabolic abnormalities, sedative medications use or primary neurological disorders. Yaquelin Esparza MD Infection Control Practitioner Neurology/Neurophysi ology [facility] MANUALLY TRANSCRIBED RESULTS [facility] Lavender Topon 06-20-2025 Extra Tube Auto Resulted [facility] No Panel Informationon 06-20 [facility] Interpretation and review of laboratory results Abnormal [facility] Osmolality, urineOrdered By: Dixon Rodriguez on 06-20-2025 Interpretation and review of laboratory results Normal [facility] Osmolality (U) [Osmolality] 565 mosm/kg [facility] Protime & INRon 06-20-2025 INR Coag (Platelet poor plasma or blood) [Relative time] 1.3 High 0.9 - 1.2 [facility] PT Coag (PPP) [Time] 15 s High [facility] Sodium, urine, randomon Sodium (U) [Moles/Vol] 64 mmol/L [facility] Thyroid profile includes TSH FT4on 06-20-2025 Free T4 [Mass/Vol] 1.13 ng/dL 0.61 - 1. 60 ng/dL [facility] Interpretation and review of laboratory results Abnormal [facility] TSH Qn 4.83 m[IU]/L High [facility] Uric acidon 06-20-2025 Interpretation and review of laboratory results Normal [facility] Urate [Mass/Vol] 4.4 mg/dL 2.6 - 7.2 mg/dL [facility] Urine Creatinine,randomon Creatinine (U) [Mass/Vol] 150.26 mg/dL [facility] Anti XA unfractionated hepar inon 06-19-2025 Heparin unfractionated Chromogenic method Qn (PPP) 0.64 [facility] Comment on above: Optimal time for raimundo ting is 6 hrs post dosage This test is specific for monitoring patients on UFH, and is not recommended for use with other Anti-Xa medications. Interpretation and review of laboratory results Normal [facility] Anti XA unfractionated hepar inOrdered By: Barbra Howell on 06-19-2025 Heparin unfractionated Chromogenic method Qn (PPP) 0.6 [facility] Comment on above: Optimal time for raimundo ting is 6 hrs post dosage This test is specific for monitoring patients on UFH, and is not recommended for use with other Anti-Xa medications. Interpretation and review of laboratory results Normal [facility] Basic Metabolic Panelon Anion gap [Moles/Vol] 9 mmol/L 5 - 15 mmol/L [facility] Calcium [Mass/Vol] 8.8 mg/dL 8.5 - 10. 5 mg/dL [facility] Chloride [Moles/Vol] 88 mmol/L Low 98 - 10 9 mmol/L [facility] CO2 [Moles/Vol] 26 mmol/L 22 - 32 mmol/L [facility] Creatinine [Mass/Vol] 0.73 mg/dL 0.60 - 1.30 mg/dL [facility] Comment on above: METHOD TRACEABLE TO IDMS STANDARD EGFR Non-Race Dependent 90 - PINF [facility] Comment on above: Reported eGFR is bas ed on the CKD-EPI 2020 equation that does not use a race coefficient. Glucose [Mass/Vol] 104 mg/dL High 65 - 99 mg/dL [facility] Interpretation and review of laboratory results Abnormal [facility] Potassium [Moles/Vol] 4.3 mmol/L 3.5 - 5.0 mmol/L [facility] Sodium [Moles/Vol] 123 mmol/L Low 134 - 146 mmol/L [facility] Urea nitrogen [Mass/Vol] 10 mg/dL 5 - 27 mg/dL [facility] CBC auto differentialon Basophils (Bld) [#/Vol] 0.1 10*3/uL 0.0 - 0.2 10*3/uL [facility] Basophils/100 WBC (Bld) 0.7 % [facility] Differential cell count method Nom (Bld) AUTOMATED DIFFERENTIAL [facility] Eosinophils (Bld) [#/Vol] 0.1 10*3/uL 0.0 - 0.4 10*3/uL [facility] Eosinophils/100 WBC (Bld) 1.1 % [facility] Erythrocyte distribution width (RBC) [Ratio] 13.5 % 11.5 - 15 % [facility] Hematocrit (Bld) [Volume fraction] 38.7 % Low 39 - 50 % [facility] Hemoglobin (Bld) [Mass/Vol] 13.4 g/dL 13 - 17 g/dL [facility] Interpretation and review of laboratory results Abnormal [facility] Lymphocytes (Bld) [#/Vol] 1.3 10*3/uL 1.0 - 3.5 10*3/uL [facility] Lymphocytes/100 WBC (Bld) 16 % [facility] MCH (RBC) [Entitic mass] 31.1 pg 27 - 34 pg [facility] MCHC (RBC) [Mass/Vol] 34.6 g/dL 32 - 3 6 g/dL [facility] MCV (RBC) [Entitic vol] 90 fL 80 - 100 fL [facility] Monocytes (Bld) [#/Vol] 1 10*3/uL High 0.0 - 0.9 10*3/uL [facility] Monocytes/100 WBC (Bld) 12.6 % [facility] Neutrophils (Bld) [#/Vol] 5.5 10*3/uL 1.5 - 6.6 10*3/uL [facility] Neutrophils/100 WBC (Bld) 69.6 % [facility] Platelet mean volume (Bld) [Entitic vol] 8.8 fL 7 - 12 fL [facility] Platelets (Bld) [#/Vol] 200 10*3/uL [facility] RBC (Bld) [#/Vol] 4.31 10*6/uL [facility] WBC LM Ql (Sput) 7.9 [facility] Cardiac echo study Procedure Ordered By: Abel Gross on 06-19-2025 Est. RA pressure 15 mmHg [facility] Work Phone: [facility] Work Phone: Cardiac echo study Procedure on 06-19-2025 Left Ventricle: Left ventricle appears normal in size. Systolic function is mildly to moderately decreased with an ejection fraction of 40-45%. See wall score diagram for wall motion abnormalities. Right Ventricle: Right ventricular size is mildly dilated. Systolic function is low normal. Mitral Valve: There is mild regurgitation. Tricuspid Valve: There is mild to moderate regurgitation. Aorta: The aortic root is mildly dilated. The ascending aorta is mildly dilated. 3.9 cm. Left Ventricle Left ventricle appears normal in size. There is mild increased wall thickness/hypertroph y. Systolic function is mildly to moderately decreased with an ejection fraction of 40-45%. See wall score diagram for wall motion abnormalities. Diastolic function assessment is indeterminate. Right Ventricle Right ventricular size is mildly dilated. Systolic function is low normal. Normal tricuspid annular plane systolic excursion. Left Atrium Left atrium volume index is mildly increased. Right Atrium Right atrium is moderately dilated. IVC/SVC The right atrial pressure is estimated at 15 mmHg. Mitral Valve There is mild annular calcification. There is mild regurgitation. There is no evidence of mitral valve stenosis. Tricuspid Valve There is mild to moderate regurgitation. There is no evidence of tricuspid valve stenosis. RVSP is based on RA pressure of 15 mmHg. Aortic Valve The aortic valve is trileaflet. The leaflets are mildly calcified. There is trace regurgitation. There is no evidence of aortic valve stenosis. Pulmonic Valve Pulmonic valve structure is grossly normal. There is mild regurgitation. There is no evidence of pulmonic valve stenosis. Ascending Aorta The aortic root is mildly dilated. The ascending aorta is mildly dilated. Study Details A complete echo was performed using complete 2D, color flow Doppler and spectral Doppler. During the study the apical, parasternal, subcostal and suprasternal views were captured. Wall Scoring Baseline Score Index: 2.00 The left ventricular wall motion is globally hypokinetic. [facility] Radiology Study observation (narrative) [facility] Electrolyte panelon 06-19-20 25 Anion gap [Moles/Vol] 7 mmol/L 5 - 15 mmol/L [facility] Chloride [Moles/Vol] 89 mmol/L Low 98 - 10 9 mmol/L [facility] CO2 [Moles/Vol] 24 mmol/L 22 - 32 mmol/L [facility] Interpretation and review of laboratory results Abnormal [facility] Potassium [Moles/Vol] 4.7 mmol/L 3.5 - 5.0 mmol/L [facility] Sodium [Moles/Vol] 120 mmol/L Low 134 - 146 mmol/L [facility] Magnesiumon 06-19-2025 Interpretation and review of laboratory results Normal [facility] Magnesium [Mass/Vol] 2.3 mg/dL 1.8 - 2 .6 mg/dL [facility] No Panel Informationon 06-19 [facility] US Carotid arteries - bilate ralon 06-19-2025 Right: Plaque with no significant ICA spectral Doppler or color flow disturbances; ICA 59/08 cm/sec. Antegrade vertebral artery flow. Left: Plaque with no significant ICA spectral Doppler or color flow disturbances; ICA 103/25 cm/sec. Antegrade vertebral artery flow. Conclusions: BILATERAL: Plaque without significant stenosis (<50%) of the internal carotid artery. Antegrade vertebral artery flow. Recommendations: Any questions prior to finalization, please call the reading physician during normal business hours at the phone number beside their name. PM CARDIOVASCULAR Abel Ballesteros MD - 06/19/2025 Right: Plaque with no significant ICA spectral Doppler or color flow disturbances; ICA 59/08 cm/sec. Antegrade vertebral artery flow. Left: Plaque with no significant ICA spectral Doppler or color flow disturbances; ICA 103/25 cm/sec. Antegrade vertebral artery flow. Conclusions: BILATERAL: Plaque without significant stenosis (<50%) of the internal carotid artery. Antegrade vertebral artery flow. Recommendations: Any questions prior to finalization, please call the reading physician during normal business hours at the phone number beside their name. [facility] Radiology Study observation (narrative) [facility] US Carotid arteries - bilate ralOrdered By: Abel Ballesteros on 06-19-2025 [facility] Work Phone: APTTon 06-18-2025 aPTT Coag (PPP) [Time] 29 s [facility] Interpretation and review of laboratory results Normal [facility] Anti XA unfractionated hepar inon 06-18-2025 Heparin unfractionated Chromogenic method Qn (PPP) 0.26 Low [facility] Comment on above: Optimal time for raimundo ting is 6 hrs post dosage This test is specific for monitoring patients on UFH, and is not recommended for use with other Anti-Xa medications. Interpretation and review of laboratory results Abnormal [facility] Basic Metabolic Panelon Anion gap [Moles/Vol] 10 mmol/L 5 - 15 mmol/L [facility] Calcium [Mass/Vol] 9.1 mg/dL 8.5 - 10. 5 mg/dL [facility] Chloride [Moles/Vol] 93 mmol/L Low 98 - 10 9 mmol/L [facility] CO2 [Moles/Vol] 24 mmol/L 22 - 32 mmol/L [facility] Creatinine [Mass/Vol] 0.71 mg/dL 0.60 - 1.30 mg/dL [facility] Comment on above: METHOD TRACEABLE TO IDRI STANDARD EGFR Non-Race Dependent - PINF [facility] Comment on above: Reported eGFR is bas ed on the CKD-EPI 2020 equation that does not use a race coefficient. Glucose [Mass/Vol] 81 mg/dL 65 - 99 mg/dL [facility] Interpretation and review of laboratory results Abnormal [facility] Potassium [Moles/Vol] 4.3 mmol/L 3.5 - 5.0 mmol/L [facility] Sodium [Moles/Vol] 127 mmol/L Low 134 - 146 mmol/L [facility] Urea nitrogen [Mass/Vol] 10 mg/dL 5 - 27 mg/dL [facility] Bedside Glucose *Place/Obtai n serum glucose if >500 per glucometer.on 06-18-2025 Glucose [Mass/Vol] 154 mg/dL High 65 - 99 mg/dL [facility] Interpretation and review of laboratory results Abnormal [facility] CBC auto differentialon Basophils (Bld) [#/Vol] 0.1 10*3/uL 0.0 - 0.2 10*3/uL [facility] Basophils/100 WBC (Bld) 1.5 % [facility] Differential cell count method Nom (Bld) AUTOMATED DIFFERENTIAL [facility] Eosinophils (Bld) [#/Vol] 0.2 10*3/uL 0.0 - 0.4 10*3/uL [facility] Eosinophils/100 WBC (Bld) 3.7 % [facility] Erythrocyte distribution width (RBC) [Ratio] 13.3 % 11.5 - 15 % [facility] Hematocrit (Bld) [Volume fraction] 36 % Low 39 - 50 % [facility] Hemoglobin (Bld) [Mass/Vol] 12.7 g/dL Low 13 - 17 g/dL [facility] Interpretation and review of laboratory results Abnormal [facility] Lymphocytes (Bld) [#/Vol] 1.2 10*3/uL 1.0 - 3.5 10*3/uL [facility] Lymphocytes/100 WBC (Bld) 22.7 % [facility] MCH (RBC) [Entitic mass] 31.5 pg 27 - 34 pg [facility] MCHC (RBC) [Mass/Vol] 35.4 g/dL 32 - 3 6 g/dL [facility] MCV (RBC) [Entitic vol] 89 fL 80 - 100 fL [facility] Monocytes (Bld) [#/Vol] 0.6 10*3/uL 0.0 - 0.9 10*3/uL [facility] Monocytes/100 WBC (Bld) 11.6 % [facility] Neutrophils (Bld) [#/Vol] 3.3 10*3/uL 1.5 - 6.6 10*3/uL [facility] Neutrophils/100 WBC (Bld) 60.5 % [facility] Platelet mean volume (Bld) [Entitic vol] 9.5 fL 7 - 12 fL [facility] Platelets (Bld) [#/Vol] 251 10*3/uL [facility] RBC (Bld) [#/Vol] 4.05 10*6/uL Low [facility] WBC LM Ql (Sput) 5.4 [facility] EEGon 06-18-2025 Images from the original result were not included. History This is a routine EEG in a patient with altered mental status and agitation, concern for seizures. Procedure This is a standard digital EEG performed in the 10-20 International system and was reviewed with multiple reformattable montages Technical Description There is no well defined posterior dominant rhythm noted. The background is primarily composed of semirhythmical 20-30 uv theta and delta range frequencies. Semi rhythmical theta and delta range activity is intermixed with occasional beta activity noted over the frontal and central region. There is intermittent attenuation of the background frequencies but no clear state related changes are noted. Hyperventilation is deferred. Photic stimulation is not done. There is no evidence of definite epileptiform activity during this study Clinical Interpretation This EEG in the awake and drowsy states is abnormal due to the presence of generalized background slowing suggestive of bi-hemispheric cerebral dysfunction that can be seen in post ictal states, metabolic, hypoxic or toxic encephalopathies, sedative medication use or primary neurological disorders. Yaquelin Esparza MD Infection Control Practitioner Neurology/Neurophysi ology [facility] MANUALLY TRANSCRIBED RESULTS EEGOrdered By: Yaquelin Esparza on 06-18-2025 [email or web address] Work Phone: Hemoglobinon 06-18-2025 Hemoglobin (Bld) [Mass/Vol] 13.9 g/dL 13 - 17 g/dL [facility] Hemoglobin A1con 06-18-2025 Average glucose Estimated from glycated hemoglobin (Bld) [Mass/Vol] 117 mg/dL [facility] HbA1c (Bld) [Mass fraction] 5.7 % High 4.4 - 5.6 % [facility] Comment on above: ADA Guidelines Result HgbA1c Normal : less than 5.7 % Prediabetes : 5.7 % to 6.4 % Diabetes : > 6.4 % Use with caution in patients with abnormal hemoglobin variants as the half-life of red blood cells and in vivo glycation rates are affected. Interpretation and review of laboratory results Abnormal [facility] Lipid profileon 06-18-2025 Cholesterol [Mass/Vol] 150 mg/dL 150 - 200 mg/dL [facility] Cholesterol in HDL [Mass/Vol] 41 mg/dL 39 - PINF mg/dL [facility] Comment on above: HDL <40 mg/dL - High Risk HDL > or = 40mg/dL- Desirable HDL >60 mg/dL - Negative Risk Cholesterol in HDL [Mass/Vol] 3.7 mg/dL 1.0 - 5.0 [facility] Cholesterol in LDL [Mass/Vol] 95 mg/dL NINF - 130 mg/dL [facility] Comment on above: LDL <100 mg/dL - Carlos A irable LDL >160 mg/dL - High Risk Cholesterol in VLDL [Mass/Vol] 14 mg/dL 0 - 30 mg/dL [facility] Interpretation and review of laboratory results Normal [facility] Triglyceride [Mass/Vol] 70 mg/dL 27 - 150 mg/dL [facility] MR Brain WO contraston 06-18 HISTORY: An 85-year-old male with a history of the CVA and stroke. Left-sided weakness and facial droop. There is also a history of fall 3 weeks ago. Stroke is suspected. TECHNIQUE: Multiplanar and multisequence MRI examination of brain is performed without intravenous contrast administration. COMPARISON: Comparison is made with the CT scan of the brain from outside facility of 06/12/2025 and MRI examination of the brain of 06/13/2025. FINDINGS: The ventricular system is normal in size and configuration. There is generalized cortical atrophy. There are numerous foci of signal abnormality in the deep white matter supratentorially consistent with small vessels ischemic change. There is a small region of signal abnormality in the best and white matter of the left parietal lobe. There is no evidence of restricted diffusion. Appearance could be from subacute or old infarction. Diffusion-weighted study demonstrates no evidence of restricted diffusion to suggest acute or subacute age of infarction. There is no evidence of intracranial mass, hemorrhage or acute pathology. The cerebellum and brainstem are unremarkable. No mass effect, midline shift of the structures or extra-axial fluid collections are noted. The cavernous carotid and and basilar arteries are patent. Visualized paranasal sinuses are clear. IMPRESSION: * No evidence of restricted diffusion to suggest acute infarction. * Mild small vessels ischemic change in the deep white matter supratentorially. * Focal area of signal abnormality in the best and white matter of the left parietal lobe without evidence of restricted diffusion. Changes could be from subacute or chronic infarction. * No evidence of intracranial mass, hemorrhage or acute pathology. Finalized by Ray Vaughn MD on 06/18/2025 9:50 AM [facility] Ray Vaughn MD - 06/18/2025 HISTORY: An 85-year-old male with a history of the CVA and stroke. Left-sided weakness and facial droop. There is also a history of fall 3 weeks ago. Stroke is suspected. TECHNIQUE: Multiplanar and multisequence MRI examination of brain is performed without intravenous contrast administration. COMPARISON: Comparison is made with the CT scan of the brain from outside facility of 06/12/2025 and MRI examination of the brain of 06/13/2025. FINDINGS: The ventricular system is normal in size and configuration. There is generalized cortical atrophy. There are numerous foci of signal abnormality in the deep white matter supratentorially consistent with small vessels ischemic change. There is a small region of signal abnormality in the best and white matter of the left parietal lobe. There is no evidence of restricted diffusion. Appearance could be from subacute or old infarction. Diffusion-weighted study demonstrates no evidence of restricted diffusion to suggest acute or subacute age of infarction. There is no evidence of intracranial mass, hemorrhage or acute pathology. The cerebellum and brainstem are unremarkable. No mass effect, midline shift of the structures or extra-axial fluid collections are noted. The cavernous carotid and and basilar arteries are patent. Visualized paranasal sinuses are clear. IMPRESSION: * No evidence of restricted diffusion to suggest acute infarction. * Mild small vessels ischemic change in the deep white matter supratentorially. * Focal area of signal abnormality in the best and white matter of the left parietal lobe without evidence of restricted diffusion. Changes could be from subacute or chronic infarction. * No evidence of intracranial mass, hemorrhage or acute pathology. Finalized by Ray Vaughn MD on 06/18/2025 9:50 AM [facility] Rad[facility] Study observation (narrative) [employer] [facility] [employer] MR Brain WO contrastOrdered By: Ray Vaughn on 06-18-2025 [facility] [employer] Work Phone: Magnesiumon 06-18-2025 Interpretation and review of laboratory results Abnormal [employer] [facility] [employer] Magnesium [Mass/Vol] 1.6 mg/dL Low 1.8 - 2 .6 mg/dL [facility] No Panel Informationon 06-18 Interpretation and review of laboratory results Normal [facility] OsmolalityOrdered By: Elisa erickson on 06-18-2025 Interpretation and review of laboratory results Abnormal [facility] Osmolality [Osmolality] 261 mosm/kg Low [facility] PST TOPon 06-18-2025 Extra Tube Auto Resulted [facility] Platelet counton 06-18-2025 Platelet mean volume (Bld) [Entitic vol] 8.7 fL 7 - 12 fL [facility] Platelets (Bld) [#/Vol] 214 10*3/uL [facility] Protime & INRon 06-18-2025 INR Coag (Platelet poor plasma or blood) [Relative time] 1.1 0.9 - 1.2 [facility] Interpretation and review of laboratory results Normal [facility] PT Coag (PPP) [Time] 13 s [facility] INR Coag (Platelet poor plasma or blood) [Relative time] 1.1 0.9 - 1.2 [facility] Interpretation and review of laboratory results Normal [facility] PT Coag (PPP) [Time] 13 s [facility] Bedside Glucose *Place/Obtai n serum glucose if >500 per glucometer.on 06-17-2025 Glucose [Mass/Vol] 111 mg/dL High 65 - 99 mg/dL [facility] Interpretation and review of laboratory results Abnormal [facility] CBC auto differentialon Basophils (Bld) [#/Vol] 0.1 10*3/uL 0.0 - 0.2 10*3/uL [facility] Basophils/100 WBC (Bld) 1.5 % [facility] Differential cell count method Nom (Bld) AUTOMATED DIFFERENTIAL [facility] Eosinophils (Bld) [#/Vol] 0.1 10*3/uL 0.0 - 0.4 10*3/uL [facility] Eosinophils/100 WBC (Bld) 3 % [facility] Erythrocyte distribution width (RBC) [Ratio] 13.8 % 11.5 - 15 % [facility] Hematocrit (Bld) [Volume fraction] 37.3 % Low 39 - 50 % [facility] Hemoglobin (Bld) [Mass/Vol] 13 g/dL 13 - 17 g/dL [facility] Interpretation and review of laboratory results Abnormal [facility] Lymphocytes (Bld) [#/Vol] 1.3 10*3/uL 1.0 - 3.5 10*3/uL [facility] Lymphocytes/100 WBC (Bld) 27.2 % [facility] MCH (RBC) [Entitic mass] 31.2 pg 27 - 34 pg [facility] MCHC (RBC) [Mass/Vol] 34.8 g/dL 32 - 3 6 g/dL [facility] MCV (RBC) [Entitic vol] 90 fL 80 - 100 fL [facility] Monocytes (Bld) [#/Vol] 0.5 10*3/uL 0.0 - 0.9 10*3/uL [facility] Monocytes/100 WBC (Bld) 10.1 % [facility] Neutrophils (Bld) [#/Vol] 2.8 10*3/uL 1.5 - 6.6 10*3/uL [facility] Neutrophils/100 WBC (Bld) 58.2 % [facility] Platelet mean volume (Bld) [Entitic vol] 9.4 fL 7 - 12 fL [facility] Platelets (Bld) [#/Vol] 193 10*3/uL [facility] RBC (Bld) [#/Vol] 4.17 10*6/uL [facility] WBC LM Ql (Sput) 4.8 [facility] CT perfusion [place] 06-17-20 CT CEREBRAL PERF ANALYSIS: 06/17/2025 PROVIDED HISTORY: * 85 years old Male * Stroke COMPARISON: MRI brain 06/13/2025 TECHNIQUE: 1. Axial CT brain perfusion was performed during the uneventful administration of intravenous contrast. Postprocessing with RAPID software was used for interpretation. 2. All CT scans at this facility use dose modulation, iterative reconstruction, and/or weight based dosing when appropriate to reduce radiation dose to as low as reasonably achievable. FINDINGS: Arterial input function MEDHAT selected: Left carotid terminus Venous outflow function MEDHAT: Right proximal transverse sinus Elevated Tmax suggested in the region of the cavernous sinuses with mild inclusion of the left anterior temporal horn. CBF<30% volume: 0 mL Tmax>6.0s volume: 3 mL Mismatch volume: 3 mL Mismatch ratio: Infinite IMPRESSION: Questionable increased Tmax in the region of the left anterior temporal horn, possibly artifactual, with perfusion parameters as described. Correlation with patient presentation and MRI brain, may be of diagnostic value. THIS REPORT CONTAINS AN URGENT RESULT AND/OR RECOMMENDATION, WHICH REQUIRES THE ATTENTION OF THE LICENSED CAREGIVER RESPONSIBLE FOR THIS PATIENT. THEREFORE, I SPECIFICALLY DESIGNATED THIS REPORT TO BE TELEPHONED BY THE RADIOLOGY DEPARTMENT. FINDINGS WERE INSTRUCTED TO BE CALLED TO THE CLINICAL SERVICE ON 06/17/2025 5:07 PM Finalized by Nico Dempsey MD on 06/17/2025 5:08 PM [facility] Nico Dempsey MD - 06/17/2025 CT CEREBRAL PERF ANALYSIS: 06/17/2025 PROVIDED HISTORY: * 85 years old Male * Stroke COMPARISON: MRI brain 06/13/2025 TECHNIQUE: 1. Axial CT brain perfusion was performed during the uneventful administration of intravenous contrast. Postprocessing with RAPID software was used for interpretation. 2. All CT scans at this facility use dose modulation, iterative reconstruction, and/or weight based dosing when appropriate to reduce radiation dose to as low as reasonably achievable. FINDINGS: Arterial input function MEDHAT selected: Left carotid terminus Venous outflow function MEDHAT: Right proximal transverse sinus Elevated Tmax suggested in the region of the cavernous sinuses with mild inclusion of the left anterior temporal horn. CBF<30% volume: 0 mL Tmax>6.0s volume: 3 mL Mismatch volume: 3 mL Mismatch ratio: Infinite IMPRESSION: Questionable increased Tmax in the region of the left anterior temporal horn, possibly artifactual, with perfusion parameters as described. Correlation with patient presentation and MRI brain, may be of diagnostic value. THIS REPORT CONTAINS AN URGENT RESULT AND/OR RECOMMENDATION, WHICH REQUIRES THE ATTENTION OF THE LICENSED CAREGIVER RESPONSIBLE FOR THIS PATIENT. THEREFORE, I SPECIFICALLY DESIGNATED THIS REPORT TO BE TELEPHONED BY THE RADIOLOGY DEPARTMENT. FINDINGS WERE INSTRUCTED TO BE CALLED TO THE CLINICAL SERVICE ON 06/17/2025 5:07 PM Finalized by Nico Dempsey MD on 06/17/2025 5:08 PM [facility] Radiology Study observation (narrative) [facility] CT perfusion HeadOrdered By: Nico Dempsey on 06-17-2025 [facility] Work Phone: Comprehensive metabolic pane patricio 06-17-2025 Albumin [Mass/Vol] 3.9 g/dL 3.2 - 5.3 g/dL [facility] ALP [Catalytic activity/Vol] 81 U/L 39 - 130 U/L [facility] ALT No additional P-5'-P [Catalytic activity/Vol] 11 U/L NINF - 40 U/L [facility] Anion gap [Moles/Vol] 8 mmol/L 5 - 15 mmol/L [facility] AST [Catalytic activity/Vol] 20 U/L NINF - 41 U/L [facility] Bilirubin [Mass/Vol] 1.1 mg/dL 0.3 - 1 .2 mg/dL [facility] Calcium [Mass/Vol] 9.2 mg/dL 8.5 - 10. 5 mg/dL [facility] Chloride [Moles/Vol] 93 mmol/L Low 98 - 10 9 mmol/L [facility] CO2 [Moles/Vol] 26 mmol/L 22 - 32 mmol/L [facility] Creatinine [Mass/Vol] 0.75 mg/dL 0.60 - 1.30 mg/dL [facility] Comment on above: METHOD TRACEABLE TO IDMS STANDARD EGFR Non-Race Dependent 90 - PINF [facility] Comment on above: Reported eGFR is bas ed on the CKD-EPI 2020 equation that does not use a race coefficient. Glucose [Mass/Vol] 94 mg/dL 65 - 99 mg/dL [facility] Potassium [Moles/Vol] 4.5 mmol/L 3.5 - 5.0 mmol/L [facility] Protein [Mass/Vol] 6.5 g/dL 6.0 - 8.0 g/dL [facility] Sodium [Moles/Vol] 127 mmol/L Low 134 - 146 mmol/L [facility] Urea nitrogen [Mass/Vol] 10 mg/dL 5 - 27 mg/dL [facility] Magnesiumon 06-17-2025 Magnesium [Mass/Vol] 1.7 mg/dL Low 1.8 - 2 .6 mg/dL [facility] No Panel Informationon 06-17 Interpretation and review of laboratory results Abnormal [facility] Phosphoruson 06-17-2025 Interpretation and review of laboratory results Normal [facility] Phosphate [Mass/Vol] 3.3 mg/dL 2.4 - 4 .9 mg/dL [facility] Population Healthon 06-14-20 Community [facility] Case Information Case Priority: None Programs: -- Referral Source: [employer] Referral Reason: Care coordination Case Type: Transition Care Management Risk Score: -- Case Status: Enrolled (June 14, 2025) Date Assigned: June 14, 2025 Assigned By: Alec Rodrigez Date Enrolled: June 14, 2025 Assigned Primary Personnel: Alec Rodrigez Assigned Secondary Personnel: -- Case Physician: YANIQUE MCNEILL CNP Problems Ongoing ASCVD (arteriosclerotic cardiovascular disease) Back [...] Carpal tunnel release (03/26/2024), Carpal tunnel release, Nose, Release of trigger finger, Surgery. Home Medications atenolol 25 mg Tab, See Instructions, 2 refills cephalexin 500 mg Cap Cialis 2.5 mg oral tablet, 2.5 mg= 1 tab(s), Oral, Daily, PRN CoQ10, See Instructions, PRN D3, See Instructions finasteride 5 mg Tab, 5 mg= 1 tab(s), Oral, Daily, 1 refills gabapentin 300 mg Cap, 300 mg= 1 cap(s), Oral, Daily, 1 refills glimepiride 2 mg Tab, 2 mg= 1 tab(s), Oral, Daily, 1 refills levothyroxine 25 mcg (0.025 mg) Tab, See Instructions lisinopril 10 mg Tab meloxicam 7.5 mg Tab, 7.5 mg= 1 tab(s), Oral, Daily omeprazole 40 mg Cap-DR, 40 mg= 1 cap(s), Oral, Daily, 1 refills pravastatin 40 mg Tab, 40 mg= 1 tab(s), Oral, Daily tamsulosin 0.4 mg Cap, 0.4 mg= 1 cap(s), Oral, Daily, 3 refills Turmeric 500 mg oral capsule, 500 mg= 1 cap(s), Oral, Daily, PRN Ure-Na, See Instructions urea 15 g oral powder for reconstitution, Oral, Daily Vitamin B12, 50 mcg, Oral, Daily, PRN warfarin 5 mg Tab, 5 mg= 1 tab(s), Oral, Daily Allergies No Known Medication Allergies Social History Alcohol - Low Risk, 05/03/2024 Past, Liquor, 1-2 times per month, 1 drinks/episode average. Previous treatment: None. Alcohol use interferes with work or home: No. Drinks more than intended: No. Others hurt by drinking: No. Ready to change: No. Household alcohol concerns: No., 05/09/2025 Substance Abuse - Denies Substance Abuse, 03/06/2024 Never, 05/09/2025 Tobacco - Denies Tobacco Use, 05/03/2024 Never (less than 100 in lifetime) Tobacco Use:. Never Smokeless Tobacco Use:. Household tobacco concerns: No. Yes, 06/07/2025 Family History Diabetes mellitus type 2: Mother. Screenings and Assessments 06/14/25 09:16:00 Result Name Value Comment Phone Call Monitoring Consent Agreed to continue call Phone Verification Patient Information Full name, street address and date of verified CM Program Enrollment Provides verbal consent for enrollment Goals and Interventions Care Plan Progress Note Admit Date: 06/12/25 [facility] Discharge Date: 06/13/25 Follow-up appointment scheduled? yes, TCM with [facility] 06/19/25 at 1340 Did you understand your discharge instructions? yes Are you able to follow them? yes Did you receive new medications? yes, ASA 81 mg QD. stop; lisinopril, meloxicam Have you filled the Rx's? 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 N/A Are you having difficulty eating or swallowing your pills? no Are you having any stomach upset, diarrhea or constipation? no How are you sleeping? without any issues Are you having any pain? no Do you have everything you need at home to care for yourself? yes Do you have Home Health? no, per spouse she does not want HH, she is taking care of patient just fine Called patient for initial Transitional Care Management Program call. Readmission risk is not available. Reviewed d/c instructions and dx of: ischemic CVA, subtherapeutic INR, epistaxis, closed head injury. Attempted to reconcile medications, states she does not know what patient takes. CN instructed patient and spouse to bring medications and medication list with them to follow up visit. Reviewed purpose and side effects of new medications with patient and spouse. Spoke with patient and spouse on speaker for the duration of this call. Patient is walking around home independently, without assistance or difficulty. Patient denies lightheadedness or dizziness. Denies weakness. Per patient is not experiencing any symptoms at this time. Denies any additional nose bleeds since d/c or unusual bleeding. No bowel or urinary system issues reported. Patient is eating and drinking well. Reviewed the following appointmen (more content not included)... Normal [facility] CMPon 06-07-2025 Albumin [Mass/Vol] 4.1 g/dL Normal 3.3-5.0 [facility] Comment on above: Performed By: #### 2 [id number] #### [facility] [address] [place] [address] Albumin/Globulin [Mass ratio] 1.6 {ratio} Normal 1.1-2.2 [facility] Comment on above: Performed By: #### 2 [id number] #### [facility] [address] [place] [address] Alk Phos 86 Int._Unit/L Normal 21-98 [facility] Comment on above: Performed By: #### 2 [id number] #### [facility] [address] [facility] [place] [address] ALT 12 Int._Unit/L Normal 6-46 [facility] Comment on above: Performed By: #### 2 [id number] #### [facility] [address] [place] [address] Anion gap [Moles/Vol] 9 mmol/L Normal 6-16 [facility] Comment on above: Performed By: #### 2 [id number] #### [facility] [address] [place] [address] AST 24 Int._Unit/L Normal 5-43 [facility] Comment on above: Performed By: #### 2 [id number] #### [facility] [address] [place] [address] Bili Total 1.0 mg/dL Normal 0.0-1.1 [facility] Comment on above: Performed By: #### 2 [id number] #### [facility] [address] [place] [address] BUN/Creat Ratio 26 No Units High 10-20 [facility] Comment on above: Performed By: #### 2 [id number] #### [facility] [address] [place] [address] Calcium [Mass/Vol] 9.8 mg/dL Normal 8.9-11.1 [facility] Comment on above: Performed By: #### 2 [id number] #### [facility] [address] [place] [address] Chloride [Moles/Vol] 95 mmol/L Low 101-111 [facility] Comment on above: Performed By: #### 2 [id number] #### [facility] [address] [place] [address] CO2 [Moles/Vol] 27 mmol/L Normal 21-31 [facility] Comment on above: Performed By: #### 2 [id number] #### [facility] [address] [place] [address] Creatinine [Mass/Vol] 1.1 mg/dL Normal 0.5-1.3 [facility] Comment on above: Performed By: #### 2 [id number] #### [facility] [address] [place] [address] Globulin (S) [Mass/Vol] 2.6 g/dL Normal 1.4-4.0 [facility] Comment on above: Performed By: #### 2 [id number] #### [facility] [address] [place] [address] Glucose [Mass/Vol] 190 mg/dL Normal 55-199 [facility] Comment on above: Performed By: #### 2 [id number] #### [facility] [address] [place] [address] Potassium [Moles/Vol] 4.2 mmol/L Normal 3.5-5.3 [facility] Comment on above: Performed By: #### 2 [id number] #### [facility] [address] [place] [address] Protein [Mass/Vol] 6.7 g/dL Normal 6.0-7.8 [facility] Comment on above: Performed By: #### 2 [id number] #### [facility] [address] [place] [address] Sodium [Moles/Vol] 127 mmol/L Low 135-145 [facility] Comment on above: Performed By: #### 2 [id number] #### [facility] [address] [place] [address] Urea nitrogen [Mass/Vol] 29 mg/dL High 5-21 [facility] Comment on above: Performed By: #### 2 [id number] #### [facility] [address] [place] [address] Family Medicine Office/Clini c Noteon 06-07-2025 Family Medicine Office/Clinic Note Family Medicine Office/Clinic Note Chief Complaint Discuss Medications The patient presents for a follow-up after hospitalization due to a nasal fracture. HPI Staff Former Dr Garcia pt. Pt presents today to follow up to hospitalization in [place]. Fell and hit his nose. Went to [facility] ER due to excessive bleeding. They packed it and DC'd pt. Upon arrival home, nose started bleeding again. Pt went back to ER, [place]. He was then transferred to [facility] in [place] where they admitted him for 3-4days. Sodium was dc'd. And pt was started on Lisinopril & Keflex & Ure-NA History of Present Illness 85-year-old male presents with his following a recent hospital stay for a nasal fracture. The incident occurred when the patient fell while attempting to lacey his stomach, resulting in a nasal fracture and subsequent bleeding. He was initially treated at [facility] with nasal packing and later transferred to [facility] for further management. During hospitalization, the patient [...] Hypo-osmolality and hyponatremia) - Reviewed documents from [facility] & [facility] in [place] - Sodium level on discharge 127 - Awaiting laboratory results - f/u in one week Ordered: Non-Formulary Medication, Ure-Na, See Instructions, 15 packet(s), 0, Natural Lemon Squaxin flavor, [id number], Supply, 178.6, cm, 06/07/25 [...] See Instructions, 15 packet(s), 0, Natural Lemon Squaxin flavor, [id number], Supply, 178.6, cm, 06/07/25 10:56:00 EDT, Height/Length Dosing, 74.3, kg, 06/07/25 10:56:00 EDT, Weight Dosing 4. Nonsmoker (Z78.9: Other specified health status) Encouraged to continue as a non-smoker Ordered: Non-Formulary Medication, Ure-Na, See Instructions, 15 packet(s), 0, Natural Lemon Squaxin flavor, [id number], Supply, 178.6, cm, 06/07/25 10:56:00 EDT, Height/Length Dosing, 74.3, kg, 06/07/25 10:56:00 EDT, Weight Dosing total time spent preparing the chart, conducting of the encounter with the patient and family and time spent documenting, reviewing, and ordering tests was 40 minutes. Follow-up With When Contact Information YANIQUE MCNEILL CNP, FAM In 6 days 06/13/2025 EDT [address] [place] [address] Business (1) Additional Instructions: Patient Education Hyponatremia, [id number] Problem List/Past Medical History Ongoing ASCVD (arteriosclerotic cardiovascular disease) Back spasm BMI 23.0-23.9, adult BMI 25.0-25.9,adult Carpal tunnel syndrome, left DM type 2 causing vascular disease Encounter for surveillance of abnormal nevi Erectile dysfunction due to arterial insufficiency Hard of hearing Hyperlipidemia Hyponatremia Hypothyroid Longstanding persistent atrial fibrillation Non (more content not included)... Normal [facility] Comment on above: Result Comment: Elec tronically Signed By: YANIQUE MCNEILL CNP\micky\Date and Time Signed: 06/07/25 14:35 EDT eGFRon 06-07-2025 eGFR 67 mL/min/1.73 m2 Normal >=59 [facility] Comment on above: Performed By: #### 1 [id number] #### [facility] [address] [place] [address] Basic Metabolic Panelon 05-15 Anion gap [Moles/Vol] 12 mmol/L 9 - 16 mmol/L [facility] Calcium [Mass/Vol] 9.2 mg/dL 8.6 - 10. 4 mg/dL [facility] Chloride [Moles/Vol] 95 mmol/L Low 98 - 10 7 mmol/L [facility] CO2 [Moles/Vol] 19 mmol/L Low 20 - 31 mmol/L [facility] Creatinine [Mass/Vol] 0.8 mg/dL 0.7 - 1.2 mg/dL [facility] Est, Glom Filt Rate 88 - PINF [facility] Comment on above: These results are not [...] 112 mg/dL High 74 - 99 mg/dL [facility] Interpretation and review of laboratory results Abnormal [facility] Potassium [Moles/Vol] 4.5 mmol/L 3.7 - 5.3 mmol/L [facility] Comment on above: Specimen hemolysis h as exceeded the interference as defined by Sindy. Value may be falsely increased. Suggest recollection if clinically indicated. Sodium [Moles/Vol] 126 mmol/L Low 136 - 145 mmol/L [facility] Urea nitrogen [Mass/Vol] 13 mg/dL 8 - 23 mg/dL [facility] Basic Metabolic Profon 06-05 Anion gap [Moles/Vol] 12 mmol/L Normal 9-16 [facility] Comment on above: Performed By: #### P T, BMP #### [facility] [address] [place] [id number] Business Office Coordinator: Pankaj Cordoba MD Calcium [Mass/Vol] 9.2 mg/dL Normal 8.6-10.4 [facility] Comment on above: Performed By: #### P T, BMP #### [facility] [address] [place] [id number] Business Office Coordinator: Pankaj Cordoba MD Chloride [Moles/Vol] 95 mmol/L Low 98-107 [facility] Comment on above: Performed By: #### P T, BMP #### [facility] [address] [place] [phone] Business Office Coordinator: Pankaj Cordoba MD CO2 [Moles/Vol] 19 mmol/L Low 20-31 [facility] Comment on above: Performed By: #### P T, BMP #### [facility] [address] [place] [id number] Business Office Coordinator: Pankaj Cordoba MD Creatinine [Mass/Vol] 0.8 mg/dL Normal 0.7-1.2 [facility] Comment on above: Performed By: #### P T, BMP #### [facility] [address] [place] [id number] Business Office Coordinator: Pankaj Cordoba MD GFR/1.73 sq M.predicted among non-blacks MDRD (S/P/Bld) [Vol rate/Area] 88 mL/min/{1.73_m2} Normal >60 [facility] Comment on above: Result Comment: These results [...] Performed By: #### P T, BMP #### [facility] [address] [place] [phone] Business Office Coordinator: Pankaj Cordoba MD Glucose [Mass/Vol] 112 mg/dL High 74-99 [facility] Comment on above: Performed By: #### P T, BMP #### [address] [address] Business Office Coordinator: Pankaj Cordoba MD Potassium [Moles/Vol] 4.5 mmol/L Normal 3.7-5.3 [facility] Comment on above: Result Comment: Spec imen hemolysis has exceeded the interference as defined by Sindy. Value may be falsely increased. Suggest recollection if clinically indicated. Performed By: #### P T, BMP #### [facility] [address] [place] [id number] Business Office Coordinator: Pankaj Cordoba MD Sodium [Moles/Vol] 126 mmol/L Low 136-145 [facility] Comment on above: Performed By: #### P T, BMP #### [email or web address] [address] [place] [phone] Business Office Coordinator: Pankaj Cordoba MD Urea nitrogen [Mass/Vol] 13 mg/dL Normal 8-23 [facility] [facility] Comment on above: Performed By: #### P T, BMP #### [facility] [address] [place] [address] Business Office Coordinator: Pankaj Cordoba MD Electrolyte Panelon 07-23-20 25 Anion gap [Moles/Vol] 16 mmol/L 9 - 16 mmol/L [facility] Chloride [Moles/Vol] 92 mmol/L Low 98 - 10 7 mmol/L [facility] CO2 [Moles/Vol] 19 mmol/L Low 20 - 31 mmol/L [facility] Interpretation and review of laboratory results Abnormal [facility] Potassium [Moles/Vol] 4.4 mmol/L 3.7 - 5.3 mmol/L [facility] Comment on above: Specimen hemolysis h as exceeded the interference as defined by Sindy. Value may be falsely increased. Suggest recollection if clinically indicated. Sodium [Moles/Vol] 127 mmol/L Low 136 - 145 mmol/L [facility] Electrolyteson 06-05-2025 Anion gap [Moles/Vol] 16 mmol/L Normal 9-16 [facility] Comment on above: Performed By: #### L YTE ####[employer] [address] [place] [address] Lab Director: Pankaj Cordoba MD Chloride [Moles/Vol] 92 mmol/L Low 98-107 [facility] Comment on above: Performed By: #### L YTE ####[facility] [address] [place] [address] Lab Director: Pankaj Cordoba MD CO2 [Moles/Vol] 19 mmol/L Low 20-31 [facility] Comment on above: Performed By: #### L YTE ####[facility] [address] [place] [address] Lab Director: Pankaj Cordoba MD Potassium [Moles/Vol] 4.4 mmol/L Normal 3.7-5.3 [facility] Comment on above: Result Comment: Spec imen hemolysis has exceeded the interference as defined by Sindy. Value may be falsely increased. Suggest recollection if clinically indicated. Performed By: #### L YTE ####[facility] [address] [place] [address] Lab Director: Pankaj Cordoba MD Sodium [Moles/Vol] 127 mmol/L Low 136-145 [facility] Comment on above: Performed By: #### L YTE ####[email or web address] [place], [place] 1756208 [facility] Director: Pankaj Cordoba MD Glucose,Whole Bloodon 2024 Glucose [Mass/Vol] 145 mg/dL High 75-110 [facility] Glucose [Mass/Vol] 108 mg/dL Normal 75-110 [facility] POC Glucose Fingerstickon Glucose [Mass/Vol] 145 mg/dL High 75 - 110 mg/dL [employer] [facility] Interpretation and review of laboratory results Abnormal [facility] Cegal [facility] [employer] Glucose [Mass/Vol] 108 mg/dL 75 - 110 mg/dL [facility] Kaai PTon 06-05-2025 INR Coag (PPP) [Relative time] 1.9 {INR} Normal [facility] Comment on above: Result Comment: Therapeutic Range: Moderate Anticoagulant Intensity: INR = 2.0-3.0 High Anticoagulant Intensity: INR = 2.5-3.5 Performed By: #### P T, BMP #### [email or web address] [address] [place] [address] [phone] Business Office Coordinator: Pankaj Cordoba MD PT Coag (PPP) [Time] 22.4 s High 11.7-14.9 [facility] Comment on above: Performed By: #### P T, BMP #### [email or web address] [facility] [place], [place] [phone] Business Office Coordinator: Pankaj Cordoba MD Protime-INRon 06-05-2025 INR Coag (PPP) [Relative time] 1.9 {INR} [facility] [employer] Comment on above: Therapeutic Range: Moderate Anticoagulant Intensity: INR = 2.0-3.0 High Anticoagulant Intensity: INR = 2.5-3.5 Interpretation and review of laboratory results Abnormal [employer] [facility] PT Coag (PPP) [Time] 22.4 s High [facility] Arterial Bld Gas,POCon 06-04 HCO3 (Bld) [Moles/Vol] 24.6 mmol/L Normal 21.0-28.0 [facility] O2 Device Room Air Normal [facility] Oxygen saturation in Blood 97.2 % Normal 94.0-98.0 [facility] pCO2, Arterial 38.6 mm Hg Normal 35.0-48.0 [facility] pH, Arterial 7.412 Normal 7.350-7.450 [facility] pO2, Arterial 91.7 mm Hg Normal 83.0-108.0 [facility] Positive Base Excess (calc) 0.1 mmol/L Normal 0.0-3.0 [facility] Site Drawn Right Radial Artery Normal [facility] Arterial Blood Gas, POCon HCO3 (Bld) [Moles/Vol] 24.6 mmol/L 21.0 - 28.0 mmol/L [facility] O2 Delivery Device Room Air Bon [facility] Oxygen saturation in Blood 97.2 % 94.0 - 98.0 % [facility] POC pCO2 38.6 [facility] POC pH 7.412 7.350 - 7.450 [facility] POC PO2 91.7 [facility] Positive Base Excess, Art 0.1 mmol/L 0.0 - 3.0 mmol/L [facility] Sample Site Right Radial Artery [facility] BUN, POCon 06-04-2025 Urea nitrogen [Mass/Vol] 11 mg/dL Normal 8-26 [facility] Basic Metab w/rfx MGon 06-04 Anion gap [Moles/Vol] 10 mmol/L Normal 9-16 [facility] Comment on above: Performed By: #### B MPX ####[facility] [address] [place] [id number] [facility] Director: Pankaj Cordoba MD Calcium [Mass/Vol] 8.6 mg/dL Normal 8.6-10.4 [facility] Comment on above: Performed By: #### B MPX ####[facility] [address] [place] [address] Lab Director: Pankaj Cordoba MD Chloride [Moles/Vol] 87 mmol/L Low 98-107 [facility] Comment on above: Performed By: #### B MPX ####[facility] [address] [place], [place] [phone] Director: Pankaj Cordoba MD CO2 [Moles/Vol] 21 mmol/L Normal 20-31 [facility] Comment on above: Performed By: #### B MPX ####[address] [address])[phone] Director: Pankja Cordoba MD Creatinine [Mass/Vol] 0.7 mg/dL Normal 0.7-1.2 [facility] Comment on above: Performed By: #### B MPX ####[address] [address] Lab Director: Pankaj Cordoba MD GFR/1.73 sq M.predicted among non-blacks MDRD (S/P/Bld) [Vol rate/Area] mL/min/{1.73_m2} Normal >60 [facility] Comment on above: Result Comment: These results [...] tubular secretion. Performed By: #### B MPX ####[facility] [address] [place] [address] Lab Director: Pankaj Cordoba MD Glucose [Mass/Vol] 107 mg/dL High 74-99 [facility] Comment on above: Performed By: #### B MPX ####[facility] [address] [place] [address] Lab Director: Pankaj Cordoba MD Potassium [Moles/Vol] 4.8 mmol/L Normal 3.7-5.3 [facility] Comment on above: Result Comment: Spec imen hemolysis has exceeded the interference as defined by Sindy. Value may be falsely increased. Suggest recollection if clinically indicated. Performed By: #### B MPX ####[facility] [address] [place] [address] Lab Director: Pankaj Cordoba MD Sodium [Moles/Vol] 118 mmol/L Critically low 136-145 [facility] Comment on above: Performed By: #### B MPX ####[address] [address] Lab Director: Pankaj Cordoba MD Urea nitrogen [Mass/Vol] 11 mg/dL Normal 8-23 [facility] Comment on above: Performed By: #### B MPX ####[facility] [address] [place] [address] Lab Director: Pankaj Cordoba MD Anion gap [Moles/Vol] 12 mmol/L Normal 9-16 [facility] Comment on above: Performed By: #### B MPX #### [facility] Simple [address] [place] [address] Business Office Coordinator: Pankaj Cordoba MD Calcium [Mass/Vol] 8.8 mg/dL Normal 8.6-10.4 [facility] Comment on above: Performed By: #### B MPX #### [facility] Simple [facility] [place] [address] Business Office Coordinator: Pankaj Cordoba MD Chloride [Moles/Vol] 88 mmol/L Low 98-107 [facility] Comment on above: Performed By: #### B MPX #### [address] [address] Business Office Coordinator: Pankaj Cordoba MD CO2 [Moles/Vol] 19 mmol/L Low 20-31 [facility] Comment on above: Performed By: #### B MPX #### [address] [address] Business Office Coordinator: Pankaj Cordoba MD Creatinine [Mass/Vol] 0.6 mg/dL Low 0.7-1.2 [facility] Comment on above: Performed By: #### B MPX #### [address] [address] Business Office Coordinator: Pankaj Cordoba MD GFR/1.73 sq M.predicted among non-blacks MDRD (S/P/Bld) [Vol rate/Area] mL/min/{1.73_m2} Normal >60 [facility] Comment on above: Result Comment: These results [...] secretion. Performed By: #### B MPX #### [address] [address] Business Office Coordinator: Pankaj Cordoba MD Glucose [Mass/Vol] 86 mg/dL Normal 74-99 [facility] Comment on above: Performed By: #### B MPX #### [address] [address] Business Office Coordinator: Pankaj Cordoba MD Potassium [Moles/Vol] 4.6 mmol/L Normal 3.7-5.3 [facility] Comment on above: Result Comment: Spec imen hemolysis has exceeded the interference as defined by Sindy. Value may be falsely increased. Suggest recollection if clinically indicated. Performed By: #### B MPX #### [facility] Simple [address] [place] [address] Business Office Coordinator: Pankaj Cordoba MD Sodium [Moles/Vol] 119 mmol/L Critically low 136-145 [facility] Comment on above: Performed By: #### B MPX #### [facility] Simple [address] [place] [address] Business Office Coordinator: Pankaj Cordoba MD Urea nitrogen [Mass/Vol] 11 mg/dL Normal 8-23 [facility] Comment on above: Performed By: #### B MPX #### [facility] Simple [facility] [place] [address] Business Office Coordinator: Pankaj Cordoba MD Anion gap [Moles/Vol] 12 mmol/L Normal 9-16 [facility] Comment on above: Performed By: #### B MPX ####[facility] [place] [address] [phone] Director: Pankaj Cordoba MD Calcium [Mass/Vol] 8.7 mg/dL Normal 8.6-10.4 [facility] Comment on above: Performed By: #### B MPX ####[facility] [address] [place], [place] [phone] Director: Pankaj Cordoba MD Chloride [Moles/Vol] 88 mmol/L Low 98-107 [facility] Comment on above: Performed By: #### B MPX ####[facility] [address] [place], [place] [phone] Director: Pankaj Cordoba MD CO2 [Moles/Vol] 19 mmol/L Low 20-31 [facility] Comment on above: Performed By: #### B MPX ####[facility] [address] [place], [place] [phone] Director: Pankaj Cordoba MD Creatinine [Mass/Vol] 0.6 mg/dL Low 0.7-1.2 [facility] Comment on above: Performed By: #### B MPX ####[address] [address] lab Director: Pankaj Cordoba MD GFR/1.73 sq M.predicted among non-blacks MDRD (S/P/Bld) [Vol rate/Area] mL/min/{1.73_m2} Normal >60 [facility] Comment on above: Result Comment: These results [...] tubular secretion. Performed By: #### B MPX ####[place] [address] Lab Director: Pankaj Cordoba MD Glucose [Mass/Vol] 81 mg/dL Normal 74-99 [facility] Comment on above: Performed By: #### B MPX ####[address] [address] Lab Director: Pankaj Cordoba MD Potassium [Moles/Vol] 4.1 mmol/L Normal 3.7-5.3 [facility] Comment on above: Result Comment: Spec imen hemolysis has exceeded the interference as defined by Sindy. Value may be falsely increased. Suggest recollection if clinically indicated. Performed By: #### B MPX ####[address] [address] Lab Director: Pankaj Cordoba MD Sodium [Moles/Vol] 119 mmol/L Critically low 136-145 [facility] Comment on above: Performed By: #### B MPX ####[address] [address] Lab Director: Pankaj Cordoba MD Urea nitrogen [Mass/Vol] 11 mg/dL Normal 8-23 [facility] Comment on above: Performed By: #### B MPX ####[address] [phone] Director: Pankaj Cordoba MD Anion gap [Moles/Vol] 11 mmol/L Normal 9-16 [facility] Comment on above: Performed By: #### O SMO #### [address] [address] Business Office Coordinator: Pankaj Cordoba MD Calcium [Mass/Vol] 9.0 mg/dL Normal 8.6-10.4 [facility] Comment on above: Performed By: #### O SMO #### [address] [address] Business Office Coordinator: Pankaj Cordoba MD Chloride [Moles/Vol] 88 mmol/L Low 98-107 [facility] Comment on above: Performed By: #### O SMO #### [address] [address] Business Office Coordinator: Pankaj Cordoba MD CO2 [Moles/Vol] 21 mmol/L Normal 20-31 [facility] Comment on above: Performed By: #### O SMO #### [address] [address] Business Office Coordinator: Pankaj Cordoba MD Creatinine [Mass/Vol] 0.6 mg/dL Low 0.7-1.2 [facility] Comment on above: Performed By: #### O SMO #### [address] [address] Business Office Coordinator: Pankaj Cordoba MD GFR/1.73 sq M.predicted among non-blacks MDRD (S/P/Bld) [Vol rate/Area] mL/min/{1.73_m2} Normal >60 [facility] Comment on above: Result Comment: These results [...] secretion. Performed By: #### O SMO #### [address] [address] Business Office Coordinator: Pankaj Cordoba MD Glucose [Mass/Vol] 75 mg/dL Normal 74-99 [facility] Comment on above: Performed By: #### O SMO #### [address] [address] Business Office Coordinator: Pankaj Cordoba MD Potassium [Moles/Vol] 4.3 mmol/L Normal 3.7-5.3 [facility] Comment on above: Performed By: #### O SMO #### [address] [address] Business Office Coordinator: Pankaj Cordoba MD Sodium [Moles/Vol] 120 mmol/L Low 136-145 [facility] Comment on above: Performed By: #### O SMO #### [address] [address] Business Office Coordinator: Pankaj Cordoba MD Urea nitrogen [Mass/Vol] 11 mg/dL Normal 8-23 [facility] Comment on above: Performed By: #### O SMO #### [address] [address] Business Office Coordinator: Pankaj Cordoba MD Anion gap [Moles/Vol] 14 mmol/L Normal 9-16 [facility] Comment on above: Performed By: #### B MPX ####[address] [address] Lab Director: Pankaj Cordoba MD Calcium [Mass/Vol] 8.5 mg/dL Low 8.6-10.4 [facility] Comment on above: Performed By: #### B MPX ####[address] [phone] Director: Pankaj Cordoba MD Chloride [Moles/Vol] 89 mmol/L Low 98-107 [facility] Comment on above: Performed By: #### B MPX ####[address] [phone] Director: Pankaj Cordoba MD CO2 [Moles/Vol] 17 mmol/L Low 20-31 [facility] Comment on above: Performed By: #### B MPX ####[address] [phone] Director: Pankaj Cordoba MD Creatinine [Mass/Vol] 0.6 mg/dL Low 0.7-1.2 [facility] Comment on above: Performed By: #### B MPX ####[address] [phone] Director: Pankaj Cordoba MD GFR/1.73 sq M.predicted among non-blacks MDRD (S/P/Bld) [Vol rate/Area] mL/min/{1.73_m2} Normal >60 [facility] Comment on above: Result Comment: These results [...] tubular secretion. Performed By: #### B MPX ####[address] [phone] Director: Pankaj Cordoba MD Glucose [Mass/Vol] 76 mg/dL Normal 74-99 [facility] Comment on above: Performed By: #### B MPX ####[facility] [address] [place], [place] [phone] Director: Pankaj Cordoba MD Potassium [Moles/Vol] 4.4 mmol/L Normal 3.7-5.3 [facility] Comment on above: Result Comment: Spec imen hemolysis has exceeded the interference as defined by Sindy. Value may be falsely increased. Suggest recollection if clinically indicated. Performed By: #### B MPX ####[facility] [address] [place], [place] [phone] Director: Pankaj Cordoba MD Sodium [Moles/Vol] 120 mmol/L Low 136-145 [facility] Comment on above: Performed By: #### B MPX ####[facility] [address] [place], [place] [phone] Director: Pankaj Cordoba MD Urea nitrogen [Mass/Vol] 11 mg/dL Normal 8-23 [facility] Comment on above: Performed By: #### B MPX ####[facility] [address] [place], [place] [phone] Director: Pankaj Cordoba MD Anion gap [Moles/Vol] 15 mmol/L Normal 9-16 [facility] Comment on above: Performed By: #### B MPX ####[facility] [address] [place], [place] [phone] Director: Pankaj Cordoba MD Calcium [Mass/Vol] 8.6 mg/dL Normal 8.6-10.4 [facility] Comment on above: Performed By: #### B MPX ####[facility] [address] [place], [place] [phone] Director: Pankaj Cordoba MD Chloride [Moles/Vol] 86 mmol/L Low 98-107 [facility] Comment on above: Performed By: #### B MPX ####[facility] [address] [place] [address] Lab Director: Pankaj Cordoba MD CO2 [Moles/Vol] 16 mmol/L Low 20-31 [facility] Comment on above: Performed By: #### B MPX ####[facility] [address] [place], [place] [address])[phone] Director: Pankaj Cordoba MD Creatinine [Mass/Vol] 0.7 mg/dL Normal 0.7-1.2 [facility] Comment on above: Performed By: #### B MPX ####[address] [address])[phone] Director: Pankaj Cordoba MD GFR/1.73 sq M.predicted among non-blacks MDRD (S/P/Bld) [Vol rate/Area] mL/min/{1.73_m2} Normal >60 [facility] Comment on above: Result Comment: These results [...] tubular secretion. Performed By: #### B MPX ####[facility] [address] [place] [address] Lab Director: Pankaj Cordoba MD Glucose [Mass/Vol] 90 mg/dL Normal 74-99 [facility] Comment on above: Performed By: #### B MPX ####[facility] [address] [place] [address] Lab Director: Pankaj Cordoba MD Potassium [Moles/Vol] 4.1 mmol/L Normal 3.7-5.3 [facility] Comment on above: Result Comment: Spec imen hemolysis has exceeded the interference as defined by Sindy. Value may be falsely increased. Suggest recollection if clinically indicated. Performed By: #### B MPX ####[facility] [address] [place] [address] Lab Director: Pankaj Cordoba MD Sodium [Moles/Vol] 117 mmol/L Critically low 136-145 [facility] Comment on above: Performed By: #### B MPX ####[facility] [address] [place] [address] Lab Director: Pankaj Cordoba MD Urea nitrogen [Mass/Vol] 12 mg/dL Normal 8-23 [facility] Comment on above: Performed By: #### B MPX ####[facility] [address] [place] [address] Lab Director: Pankaj Cordoba MD Basic Metabolic Panel w/ Ref maura to MGon 06-04-2025 Anion gap [Moles/Vol] 10 mmol/L 9 - 16 mmol/L [facility] Calcium [Mass/Vol] 8.6 mg/dL 8.6 - 10. 4 mg/dL [facility] Chloride [Moles/Vol] 87 mmol/L Low 98 - 10 7 mmol/L [facility] CO2 [Moles/Vol] 21 mmol/L 20 - 31 mmol/L [facility] Creatinine [Mass/Vol] 0.7 mg/dL 0.7 - 1.2 mg/dL [facility] Est, Glom Filt Rate - PINF [facility] Comment on above: These results are not [...] 107 mg/dL High 74 - 99 mg/dL [facility] Interpretation and review of laboratory results Abnormal [facility] Potassium [Moles/Vol] 4.8 mmol/L 3.7 - 5.3 mmol/L [facility] Comment on above: Specimen hemolysis h as exceeded the interference as defined by Sindy. Value may be falsely increased. Suggest recollection if clinically indicated. Sodium [Moles/Vol] 118 mmol/L Critically low 136 - 1 45 mmol/L [facility] Urea nitrogen [Mass/Vol] 11 mg/dL 8 - 23 mg/dL [facility] Anion gap [Moles/Vol] 12 mmol/L 9 - 16 mmol/L [facility] Calcium [Mass/Vol] 8.8 mg/dL 8.6 - 10. 4 mg/dL [facility] Chloride [Moles/Vol] 88 mmol/L Low 98 - 10 7 mmol/L [facility] CO2 [Moles/Vol] 19 mmol/L Low 20 - 31 mmol/L [facility] Creatinine [Mass/Vol] 0.6 mg/dL Low 0.7 - 1.2 mg/dL [facility] Est, Glom Filt Rate - PINF [facility] Comment on above: These results are not [...] [Mass/Vol] 86 mg/dL 74 - 99 mg/dL [facility] Interpretation and review of laboratory results Abnormal [facility] Potassium [Moles/Vol] 4.6 mmol/L 3.7 - 5.3 mmol/L [facility] Comment on above: Specimen hemolysis h as exceeded the interference as defined by Sindy. Value may be falsely increased. Suggest recollection if clinically indicated. Sodium [Moles/Vol] 119 mmol/L Critically low 136 - 1 45 mmol/L [facility] Urea nitrogen [Mass/Vol] 11 mg/dL 8 - 23 mg/dL [facility] Anion gap [Moles/Vol] 12 mmol/L 9 - 16 mmol/L [facility] Calcium [Mass/Vol] 8.7 mg/dL 8.6 - 10. 4 mg/dL [facility] Chloride [Moles/Vol] 88 mmol/L Low 98 - 10 7 mmol/L [facility] CO2 [Moles/Vol] 19 mmol/L Low 20 - 31 mmol/L [facility] Creatinine [Mass/Vol] 0.6 mg/dL Low 0.7 - 1.2 mg/dL [facility] Est, Glozoe Mejiat Rate - PINF [facility] Comment on above: These results are not [...] [Mass/Vol] 81 mg/dL 74 - 99 mg/dL [facility] Interpretation and review of laboratory results Abnormal [facility] Potassium [Moles/Vol] 4.1 mmol/L 3.7 - 5.3 mmol/L [facility] Comment on above: Specimen hemolysis h as exceeded the interference as defined by Sindy. Value may be falsely increased. Suggest recollection if clinically indicated. Sodium [Moles/Vol] 119 mmol/L Critically low 136 - 1 45 mmol/L [facility] Urea nitrogen [Mass/Vol] 11 mg/dL 8 - 23 mg/dL [facility] Anion gap [Moles/Vol] 11 mmol/L 9 - 16 mmol/L [facility] Calcium [Mass/Vol] 9 mg/dL 8.6 - 10. 4 mg/dL [facility] Chloride [Moles/Vol] 88 mmol/L Low 98 - 10 7 mmol/L [facility] CO2 [Moles/Vol] 21 mmol/L 20 - 31 mmol/L [facility] Creatinine [Mass/Vol] 0.6 mg/dL Low 0.7 - 1.2 mg/dL [facility] EstJesut Rate - PINF [facility] [employer] [facility] Comment on above: These results are not [...] [Mass/Vol] 75 mg/dL 74 - 99 mg/dL [facility] Interpretation and review of laboratory results Abnormal [facility] Potassium [Moles/Vol] 4.3 mmol/L 3.7 - 5.3 mmol/L [facility] Sodium [Moles/Vol] 120 mmol/L Low 136 - 145 mmol/L [facility] Urea nitrogen [Mass/Vol] 11 mg/dL 8 - 23 mg/dL [facility] Anion gap [Moles/Vol] 14 mmol/L 9 - 16 mmol/L [facility] Calcium [Mass/Vol] 8.5 mg/dL Low 8.6 - 10. 4 mg/dL [facility] Chloride [Moles/Vol] 89 mmol/L Low 98 - 10 7 mmol/L [facility] CO2 [Moles/Vol] 17 mmol/L Low 20 - 31 mmol/L [facility] Creatinine [Mass/Vol] 0.6 mg/dL Low 0.7 - 1.2 mg/dL [facility] Est, Jesu Mejiahugh Rate - PINF [facility] [employer] [facility] Comment on above: These results are not [...] [Mass/Vol] 76 mg/dL 74 - 99 mg/dL [facility] Interpretation and review of laboratory results Abnormal [facility] Potassium [Moles/Vol] 4.4 mmol/L 3.7 - 5.3 mmol/L [facility] Comment on above: Specimen hemolysis h as exceeded the interference as defined by Sindy. Value may be falsely increased. Suggest recollection if clinically indicated. Sodium [Moles/Vol] 120 mmol/L Low 136 - 145 mmol/L [facility] Urea nitrogen [Mass/Vol] 11 mg/dL 8 - 23 mg/dL [facility] Anion gap [Moles/Vol] 15 mmol/L 9 - 16 mmol/L [facility] Calcium [Mass/Vol] 8.6 mg/dL 8.6 - 10. 4 mg/dL [facility] Chloride [Moles/Vol] 86 mmol/L Low 98 - 10 7 mmol/L [facility] CO2 [Moles/Vol] 16 mmol/L Low 20 - 31 mmol/L [facility] Creatinine [Mass/Vol] 0.7 mg/dL 0.7 - 1.2 mg/dL [facility] Est, Glom Filt Rate - PINF [facility] Comment on above: These results are not [...] [Mass/Vol] 90 mg/dL 74 - 99 mg/dL [facility] Interpretation and review of laboratory results Abnormal [facility] Potassium [Moles/Vol] 4.1 mmol/L 3.7 - 5.3 mmol/L [facility] Comment on above: Specimen hemolysis h as exceeded the interference as defined by Sindy. Value may be falsely increased. Suggest recollection if clinically indicated. Sodium [Moles/Vol] 117 mmol/L Critically low 136 - 1 45 mmol/L [facility] Urea nitrogen [Mass/Vol] 12 mg/dL 8 - 23 mg/dL [facility] CALCIUM, IONIC (POC)on 06-04 Calcium.ionized (Bld) [Moles/Vol] 1.18 mmol/L 1.15 - 1.33 mmol/L [facility] CT HEAD WO CONTRASTon 2024 [...] Dixon Crockett MD 06/04/25 Final result Normal [facility] CT Head WO contraston 2024 1. No acute intracranial abnormality. 2. Acute right maxillary sinusitis. PN RIS CONSOLIDATED EXAMINATION: CT OF THE HEAD WITHOUT [...] cells. SOFT TISSUES/SKULL: The calvarium is intact. [facility] Dixon Davis MD - 06/04/2025 EXAMINATION: CT OF THE [...] intracranial abnormality. 2. Acute right maxillary sinusitis. [facility] Radiology Study observation (narrative) [facility] CT Head WO contrastOrdered B y: Dixon Crockett on 06-04-2025 [facility] Work Phone: Calcium, Ionic (POC)on 06-04 Calcium [Moles/Vol] 1.18 mmol/L Normal 1.15-1.33 [facility] Cortisolon 06-04-2025 Cortisol 11.7 ug/dL Normal 2.5-19.5 [facility] Comment on above: Result Comment: Cortisol Reference Range: AM 6.0-18.4 PM 2.7-10.5 Performed By: #### O SMO #### [facility] [address] [place] [id number] Business Office Coordinator: Pankaj Cordoba MD Cortisol Totalon 06-04-2025 Cortisol [Mass/Vol] 11.7 ug/dL 2.5 - 19 .5 ug/dL [facility] Comment on above: Cortisol Reference Range: AM 6.0-18.4 PM 2.7-10.5 Creatinine W/GFR Point of Ca reon 06-04-2025 Creatinine [Mass/Vol] 0.7 mg/dL 0.51 - 1.19 mg/dL [facility] eGFR, POC - PINF [facility] Comment on above: These results [...] 05-15 Creatinine [Mass/Vol] 0.7 mg/dL Normal 0.51-1.19 [facility] GFR/1.73 sq M.predicted among non-blacks MDRD (S/P/Bld) [Vol rate/Area] mL/min/{1.73_m2} Normal >60 [facility] Comment on above: Result Comment: These results [...] [Moles/Vol] 12 mmol/L 7 - 16 mmol/L [facility] Chloride [Moles/Vol] 89 mmol/L Low 98 - 10 7 mmol/L [facility] CO2 Calc (Bld) [Moles/Vol] 23 mmol/L 22 - 30 mmol/L [facility] Potassium [Moles/Vol] 3.9 mmol/L 3.5 - 4.5 mmol/L [facility] Sodium [Moles/Vol] 123 mmol/L Low 138 - 146 mmol/L [facility] Electrolyte Panelon 06-04-20 Anion gap [Moles/Vol] 9 mmol/L 9 - 16 mmol/L [facility] Chloride [Moles/Vol] 91 mmol/L Low 98 - 10 7 mmol/L [facility] CO2 [Moles/Vol] 21 mmol/L 20 - 31 mmol/L [facility] Interpretation and review of laboratory results Abnormal [facility] Potassium [Moles/Vol] 4.3 mmol/L 3.7 - 5.3 mmol/L [facility] Sodium [Moles/Vol] 121 mmol/L Low 136 - 145 mmol/L [facility] Anion gap [Moles/Vol] 12 mmol/L 9 - 16 mmol/L [facility] Chloride [Moles/Vol] 90 mmol/L Low 98 - 10 7 mmol/L [facility] CO2 [Moles/Vol] 20 mmol/L 20 - 31 mmol/L [facility] Interpretation and review of laboratory results Abnormal [facility] Potassium [Moles/Vol] 4.3 mmol/L 3.7 - 5.3 mmol/L [facility] Sodium [Moles/Vol] 122 mmol/L Low 136 - 145 mmol/L [facility] Anion gap [Moles/Vol] 11 mmol/L 9 - 16 mmol/L [facility] Chloride [Moles/Vol] 88 mmol/L Low 98 - 10 7 mmol/L [facility] CO2 [Moles/Vol] 19 mmol/L Low 20 - 31 mmol/L [facility] Interpretation and review of laboratory results Abnormal [facility] Potassium [Moles/Vol] 4.5 mmol/L 3.7 - 5.3 mmol/L [facility] Sodium [Moles/Vol] 118 mmol/L Critically low 136 - 1 45 mmol/L [facility] Electrolyteson 06-04-2025 Anion gap [Moles/Vol] 9 mmol/L Normal 9-16 [facility] Comment on above: Performed By: #### O SMO #### [facility] [place] [address] Business Office Coordinator: Pankaj Cordoba MD Chloride [Moles/Vol] 91 mmol/L Low 98-107 [facility] Comment on above: Performed By: #### O SMO #### [address] [address] Business Office Coordinator: Pankaj Cordoba MD CO2 [Moles/Vol] 21 mmol/L Normal 20-31 [facility] Comment on above: Performed By: #### O SMO #### [address] [address] Business Office Coordinator: Pankaj Cordoba MD Potassium [Moles/Vol] 4.3 mmol/L Normal 3.7-5.3 [facility] Comment on above: Performed By: #### O SMO #### [address] [address] Business Office Coordinator: Pankaj Cordoba MD Sodium [Moles/Vol] 121 mmol/L Low 136-145 [facility] Comment on above: Performed By: #### O SMO #### [address] [address] Business Office Coordinator: Pankaj Cordoba MD Anion gap [Moles/Vol] 12 mmol/L Normal 9-16 [facility] Comment on above: Performed By: #### L YTE ####[facility] [address] [place] [address] [phone] Director: Pankaj Cordoba MD Chloride [Moles/Vol] 90 mmol/L Low 98-107 [facility] Comment on above: Performed By: #### L YTE ####[address] [phone] Director: Pankaj Cordoba MD CO2 [Moles/Vol] 20 mmol/L Normal 20-31 [facility] Comment on above: Performed By: #### L YTE ####[facility] [id number] [place] [address] Lab Director: Pankaj Cordoba MD Potassium [Moles/Vol] 4.3 mmol/L Normal 3.7-5.3 [facility] Comment on above: Performed By: #### L YTE ####[facility] [address] [place] [address] Lab Director: Pankaj Cordoba MD Sodium [Moles/Vol] 122 mmol/L Low 136-145 [facility] Comment on above: Performed By: #### L YTE ####[address] [address] Lab Director: Pankaj Cordoba MD Anion gap [Moles/Vol] 11 mmol/L Normal 9-16 [facility] Comment on above: Performed By: #### O SMO #### [address] [address] Business Office Coordinator: Pankaj Cordoba MD Chloride [Moles/Vol] 88 mmol/L Low 98-107 [facility] Comment on above: Performed By: #### O SMO #### [address] [address] Business Office Coordinator: Pankaj Cordoba MD CO2 [Moles/Vol] 19 mmol/L Low 20-31 [facility] Comment on above: Performed By: #### O SMO #### [address] [address] Business Office Coordinator: Pankaj Cordoba MD Potassium [Moles/Vol] 4.5 mmol/L Normal 3.7-5.3 [facility] Comment on above: Performed By: #### O SMO #### [address] [address] Business Office Coordinator: Pankaj Cordoba MD Sodium [Moles/Vol] 118 mmol/L Critically low 136-145 [facility] Comment on above: Performed By: #### O SMO #### [facility] [address] [place], [place] [phone] Business Office Coordinator: Pankaj Cordoba MD Anion gap [Moles/Vol] 12 mmol/L Normal 7-16 [facility] Chloride [Moles/Vol] 89 mmol/L Low 98-107 [facility] CO2 [Moles/Vol] 23 mmol/L Normal 22-30 [facility] Potassium [Moles/Vol] 3.9 mmol/L Normal 3.5-4.5 [facility] Sodium [Moles/Vol] 123 mmol/L Low 138-146 [facility] Glucose (POC)on 06-04-2025 Glucose [Mass/Vol] 81 mg/dL Normal 74-100 [facility] Glucose,Whole Bloodon 2024 Glucose [Mass/Vol] 119 mg/dL High 75-110 [facility] Glucose [Mass/Vol] 96 mg/dL Normal 75-110 [facility] Glucose [Mass/Vol] 117 mg/dL High 75-110 [facility] Glucose [Mass/Vol] 93 mg/dL Normal 75-110 [facility] Glucose [Mass/Vol] 76 mg/dL Normal 75-110 [facility] Hemoglobin and hematocrit, b loodon 06-04-2025 Hematocrit (Bld) [Volume fraction] 36 % Low 41 - 53 % [facility] Hemoglobin (Bld) [Mass/Vol] 12.3 g/dL Low 13.5 - 17.5 g/dL [facility] Hgb/Hct, POCon 06-04-2025 Hematocrit (Bld) [Volume fraction] 36 % Low 41-53 [facility] Hemoglobin (Bld) [Mass/Vol] 12.3 g/dL Low 13.5-17.5 [facility] Lactic Acid (POC)on 06-04-20 25 Lactate [Moles/Vol] 0.8 mmol/L Normal 0.56-1.39 [facility] Lactic Acid, POCon 5 POC Lactic Acid 0.8 mmol/L 0.56 - 1.39 mmol/L [facility] No Panel Informationon 06-04 [facility] Interpretation and review of laboratory results Abnormal [facility] Osmolality, Urineon 06-04-20 25 Osmolality (U) [Osmolality] 590 mosm/kg [facility] Osmolality - Urine 590 mOsm/kg Normal 80-1300 [facility] Comment on above: Performed By: #### U RNA, UOSMO ####[employer] [id number] [place] [address] [facility] Director: Pankaj Cordoba MD POC Glucose Fingerstickon Glucose [Mass/Vol] 119 mg/dL High 75 - 110 mg/dL [facility] Interpretation and review of laboratory results Abnormal [facility] Glucose [Mass/Vol] 96 mg/dL 75 - 110 mg/dL [facility] Glucose [Mass/Vol] 117 mg/dL High 75 - 110 mg/dL [facility] Interpretation and review of laboratory results Abnormal [facility] Glucose [Mass/Vol] 93 mg/dL 75 - 110 mg/dL [facility] Glucose [Mass/Vol] 76 mg/dL 75 - 110 mg/dL [facility] POCT Glucoseon 06-04-2025 Glucose [Mass/Vol] 81 mg/dL 74 - 100 mg/dL [facility] POCT urea (BUN)on 06-04-2025 Urea nitrogen [Mass/Vol] 11 mg/dL 8 - 26 mg/dL [facility] PTon 06-04-2025 INR Coag (PPP) [Relative time] 1.8 {INR} Normal [facility] Comment on above: Result Comment: Therapeutic Range: Moderate Anticoagulant Intensity: INR = 2.0-3.0 High Anticoagulant Intensity: INR = 2.5-3.5 Performed By: #### P T #### [email or web address] [address] [place], [place] [phone] Business Office Coordinator: Pankaj Cordoba MD PT Coag (PPP) [Time] 21.4 s High 11.7-14.9 [facility] Comment on above: Performed By: #### P T #### [email or web address] [address] [place], [place] [phone] Business Office Coordinator: Pankaj Cordoba MD Protime-INRon 06-04-2025 INR Coag (PPP) [Relative time] 1.8 {INR} [facility] Comment on above: Therapeutic Range: Moderate Anticoagulant Intensity: INR = 2.0-3.0 High Anticoagulant Intensity: INR = 2.5-3.5 Interpretation and review of laboratory results Abnormal [facility] PT Coag (PPP) [Time] 21.4 s High [facility] Sodium, Random Uron 06-04-20 25 Sodium (U) [Moles/Vol] 159 mmol/L Normal [facility] Comment on above: No normal range esta blished. Result Comment: No n ormal range established. Performed By: #### U RNA, UOSMO ####[email or web address] [place], [place] [id number] Lab Director: Pankaj Cordoba MD Sodium, urine, randomon 05-15 [facility] T4, Freeon 06-04-2025 Free T4 [Mass/Vol] 1.5 ng/dL 0.92 - 1. 68 ng/dL [facility] TSHon 06-04-2025 TSH Qn 2.95 m[IU]/L [facility] Thyroid Stim. Horm.on 2024 Thyroid Stim. Horm. 2.95 uIU/mL Normal 0.27-4.20 [facility] Comment on above: Performed By: #### O SMO #### [address] [address] Business Office Coordinator: Pankaj Cordoba MD Thyroxine, Freeon 06-04-2025 Thyroxine, Free 1.5 ng/dL Normal 0.92-1.68 [facility] Comment on above: Performed By: #### O SMO #### [address] [address] Business Office Coordinator: Pankaj Cordoba MD Basic Metab w/rfx MGon 06-03 Anion gap [Moles/Vol] 11 mmol/L Normal 9-16 [facility] Comment on above: Performed By: #### O SMO #### [address] [address] Business Office Coordinator: Pankaj Cordoba MD Calcium [Mass/Vol] 9.0 mg/dL Normal 8.6-10.4 [facility] Comment on above: Performed By: #### O SMO #### [address] [address] Business Office Coordinator: Pankaj Cordoba MD Chloride [Moles/Vol] 90 mmol/L Low 98-107 [facility] Comment on above: Performed By: #### O SMO #### [address] [address] Business Office Coordinator: Pankaj Cordoba MD CO2 [Moles/Vol] 20 mmol/L Normal 20-31 [facility] Comment on above: Performed By: #### O SMO #### [address] [address] Business Office Coordinator: Pankaj Cordoba MD Creatinine [Mass/Vol] 0.7 mg/dL Normal 0.7-1.2 [facility] Comment on above: Performed By: #### O SMO #### [address] [phone] Business Office Coordinator: Pankaj Cordoba MD GFR/1.73 sq M.predicted among non-blacks MDRD (S/P/Bld) [Vol rate/Area] mL/min/{1.73_m2} Normal >60 [facility] Comment on above: Result Comment: These results [...] secretion. Performed By: #### O SMO #### [address] [address] Business Office Coordinator: Pankaj Cordoba MD Glucose [Mass/Vol] 107 mg/dL High 74-99 [facility] Comment on above: Performed By: #### O SMO #### [address] [address] Business Office Coordinator: Pankaj Cordoba MD Potassium [Moles/Vol] 4.8 mmol/L Normal 3.7-5.3 [facility] Comment on above: Result Comment: Spec imen hemolysis has exceeded the interference as defined by Sindy. Value may be falsely increased. Suggest recollection if clinically indicated. Performed By: #### O SMO #### [address] [address] Business Office Coordinator: Pankaj Cordoba MD Sodium [Moles/Vol] 121 mmol/L Low 136-145 [facility] Comment on above: Performed By: #### O SMO #### [address] [address] Business Office Coordinator: Pankaj Cordoba MD Urea nitrogen [Mass/Vol] 13 mg/dL Normal 8-23 [facility] Comment on above: Performed By: #### O SMO #### [address] [place] [address] Business Office Coordinator: Pankaj Cordoba MD Basic Metabolic Panel w/ Ref maura to MGon 06-03-2025 Anion gap [Moles/Vol] 11 mmol/L 9 - 16 mmol/L [facility] Calcium [Mass/Vol] 9 mg/dL 8.6 - 10. 4 mg/dL [facility] Chloride [Moles/Vol] 90 mmol/L Low 98 - 10 7 mmol/L [facility] CO2 [Moles/Vol] 20 mmol/L 20 - 31 mmol/L [facility] Creatinine [Mass/Vol] 0.7 mg/dL 0.7 - 1.2 mg/dL [facility], Jesu Mejiahugh Rate - PINF [facility] Comment on above: These results are not [...] 107 mg/dL High 74 - 99 mg/dL [facility] Interpretation and review of laboratory results Abnormal [facility] Potassium [Moles/Vol] 4.8 mmol/L 3.7 - 5.3 mmol/L [facility] Comment on above: Specimen hemolysis h as exceeded the interference as defined by Sindy. Value may be falsely increased. Suggest recollection if clinically indicated. Sodium [Moles/Vol] 121 mmol/L Low 136 - 145 mmol/L [facility] Urea nitrogen [Mass/Vol] 13 mg/dL 8 - 23 mg/dL [facility] CBC with Auto Differentialon 06-03-2025 Basophils (Bld) [#/Vol] 0.04 10*3/uL [facility] Basophils/100 WBC (Bld) 1 % 0 - 2 % [facility] Eosinophils (Bld) [#/Vol] 0.08 10*3/uL [facility] Eosinophils/100 WBC (Bld) 1 % 1 - 4 % [facility] Erythrocyte distribution width (RBC) [Ratio] 13 % 11.8 - 14.4 % [facility] Hematocrit (Bld) [Volume fraction] 35.2 % Low 40.7 - 50.3 % [facility] Hemoglobin (Bld) [Mass/Vol] 12.3 g/dL Low 13.0 - 17.0 g/dL [facility] Immature granulocytes (Bld) [#/Vol] [facility] Immature granulocytes/100 WBC (Bld) 0 % 0 [facility] Interpretation and review of laboratory results Abnormal [facility] Lymphocytes/100 WBC (Bld) 23 % Low 24 - 43 % [facility] Lymphocytes/100 WBC (Bld) 1.68 % [facility] MCH (RBC) [Entitic mass] 30.9 pg 25.2 - 33.5 pg [facility] MCHC (RBC) [Mass/Vol] 34.9 g/dL High 28.4 - 34.8 g/dL [facility] MCV (RBC) [Entitic vol] 88.4 fL 82.6 - 102.9 fL [facility] Monocytes/100 WBC (Bld) 11 % 3 - 12 % [facility] Monocytes/100 WBC (Bld) 0.8 % [facility] Neutrophils/100 WBC (Bld) 64 % 36 - 65 % [facility] Nucleated RBC/100 WBC (Bld) [Ratio] 0 % 0.0 per 100 WBC [facility] Platelet, Fluorescence 132 Low [facility] Platelets (Bld) [#/Vol] See Reflexed IPF Result [facility] Platelets reticulated/100 platelets Auto (Bld) 5.3 % 1.1 - 10.3 % [facility] RBC (Bld) [#/Vol] 3.98 10*6/uL Low 4.21 - 5.7 7 m/uL [facility] Segmented neutrophils/100 WBC (Bld) 4.63 % [facility] WBC other (Bld) [#/Vol] 7.2 [facility] CBC with Diffon 06-03-2025 Abs. Basophil 0.04 k/uL Normal 0.00-0.20 [facility] Comment on above: Performed By: #### O SMO #### [address] [address] Business Office Coordinator: Pankaj Cordoba MD Abs.Imm.Granulocyte <0.03 Normal 0.00-0.30 [facility] Comment on above: Performed By: #### O SMO #### [address] [address] Business Office Coordinator: Pankaj Cordoba MD Abs.Neutrophil (Seg) 4.63 k/uL Normal 1.50-8.10 [facility] Comment on above: Performed By: #### O SMO #### [place] [address] Business Office Coordinator: Pankaj Cordoba MD Basophils/100 WBC (Bld) 1 % Normal 0-2 [facility] Comment on above: Performed By: #### O SMO #### [place] [address] Business Office Coordinator: Pankaj Cordoba MD Eosinophils (Bld) [#/Vol] 0.08 10*3/uL Normal 0.00-0.44 [facility] Comment on above: Performed By: #### O SMO #### [address] [address] Business Office Coordinator: Pankaj Cordoba MD Eosinophils/100 WBC (Bld) 1 % Normal 1-4 [facility] Comment on above: Performed By: #### O SMO #### [address] [address] Business Office Coordinator: Pankaj Cordoba MD Erythrocyte distribution width (RBC) [Ratio] 13.0 % Normal 11.8-14.4 [facility] Comment on above: Performed By: #### O SMO #### [address] [address] Business Office Coordinator: Pankaj Cordoba MD Hematocrit (Bld) [Volume fraction] 35.2 % Low 40.7-50.3 [facility] Comment on above: Performed By: #### O SMO #### [address] [address] Business Office Coordinator: Pankaj Cordoba MD Hemoglobin (Bld) [Mass/Vol] 12.3 g/dL Low 13.0-17.0 [facility] Comment on above: Performed By: #### O SMO #### [address] [address] Business Office Coordinator: Pankaj Cordoba MD Immature granulocytes/100 WBC (Bld) 0 % Normal 0 [facility] Comment on above: Performed By: #### O SMO #### [address] [address] Business Office Coordinator: Pankaj Cordoba MD Lymphocytes (Bld) [#/Vol] 1.68 10*3/uL Normal 1.10-3.70 [facility] Comment on above: Performed By: #### O SMO #### [address] [address] Business Office Coordinator: Pankaj Cordoba MD Lymphocytes/100 WBC (Bld) 23 % Low 24-43 [facility] Comment on above: Performed By: #### O SMO #### [address] [address] Business Office Coordinator: Paknaj Cordoba MD MCH (RBC) [Entitic mass] 30.9 pg Normal 25.2-33.5 [facility] Comment on above: Performed By: #### O SMO #### [address] [address] Business Office Coordinator: Pankaj Cordoba MD MCHC (RBC) [Mass/Vol] 34.9 g/dL High 28.4-34.8 [facility] Comment on above: Performed By: #### O SMO #### [address] [address] Business Office Coordinator: Pankaj Cordoba MD MCV (RBC) [Entitic vol] 88.4 fL Normal 82.6-102.9 [facility] Comment on above: Performed By: #### O SMO #### [address] [address] Business Office Coordinator: Pankaj Cordoba MD Monocytes (Bld) [#/Vol] 0.80 10*3/uL Normal 0.10-1.20 [facility] Comment on above: Performed By: #### O SMO #### [address] [address] Business Office Coordinator: Pankaj Cordoba MD Monocytes/100 WBC (Bld) 11 % Normal 3-12 [facility] Comment on above: Performed By: #### O SMO #### [address] [address] Business Office Coordinator: Pankaj Cordoba MD Neutrophil (Seg) 64 % Normal 36-65 [facility] Comment on above: Performed By: #### O SMO #### [address] [address] Business Office Coordinator: Pankaj Cordoba MD NRBC Automated 0.0 per 100 WBC Normal 0.0 [facility] Comment on above: Performed By: #### O SMO #### [address] [address] Business Office Coordinator: Pankaj Cordoba MD Platelet Count See Reflexed IPF Result Normal 138-453 [facility] Comment on above: Performed By: #### O SMO #### [address] [address] Business Office Coordinator: Pankaj Cordoba MD Platelet, Fluoresc. 132 k/uL Low 138-453 [facility] Comment on above: Performed By: #### O SMO #### [facility] [place] [address] Business Office Coordinator: Pankaj Cordoba MD PLT, Immature Fract. 5.3 % Normal 1.1-10.3 [facility] Comment on above: Performed By: #### O SMO #### [facility] [place] [address] Business Office Coordinator: Pankaj Cordoba MD RBC (Bld) [#/Vol] 3.98 10*6/uL Low 4.21-5.77 [facility] Comment on above: Performed By: #### O SMO #### [address] [address] Business Office Coordinator: Pankaj Cordoba MD WBC (Bld) [#/Vol] 7.2 10*3/uL Normal 3.5-11.3 [facility] Comment on above: Performed By: #### O SMO #### [address] [address] Business Office Coordinator: Pankaj Cordoba MD Electrolyte Panelon 06-03-20 25 Anion gap [Moles/Vol] 14 mmol/L 9 - 16 mmol/L [facility] Chloride [Moles/Vol] 86 mmol/L Low 98 - 10 7 mmol/L [facility] CO2 [Moles/Vol] 17 mmol/L Low 20 - 31 mmol/L [facility] Interpretation and review of laboratory results Abnormal [facility] Potassium [Moles/Vol] 4.4 mmol/L 3.7 - 5.3 mmol/L [facility] Comment on above: Specimen hemolysis h as exceeded the interference as defined by Sindy. Value may be falsely increased. Suggest recollection if clinically indicated. Sodium [Moles/Vol] 117 mmol/L Critically low 136 - 1 45 mmol/L [facility] Anion gap [Moles/Vol] 12 mmol/L 9 - 16 mmol/L [facility] Chloride [Moles/Vol] 89 mmol/L Low 98 - 10 7 mmol/L [facility] CO2 [Moles/Vol] 19 mmol/L Low 20 - 31 mmol/L [facility] Interpretation and review of laboratory results Abnormal [facility] Potassium [Moles/Vol] 4.5 mmol/L 3.7 - 5.3 mmol/L [facility] Comment on above: Specimen hemolysis h as exceeded the interference as defined by Sindy. Value may be falsely increased. Suggest recollection if clinically indicated. Sodium [Moles/Vol] 120 mmol/L Low 136 - 145 mmol/L [facility] Electrolyteson 06-03-2025 Anion gap [Moles/Vol] 14 mmol/L Normal 9-16 [facility] Comment on above: Performed By: #### L YTE ####[facility] [address] [place] [address] Lab Director: Pankaj Cordoba MD Chloride [Moles/Vol] 86 mmol/L Low 98-107 [facility] Comment on above: Performed By: #### L YTE ####[facility] [address] [place] [address] Lab Director: Pankaj Cordoba MD CO2 [Moles/Vol] 17 mmol/L Low 20-31 [facility] Comment on above: Performed By: #### L YTE ####[facility] [address] [place] [address] Lab Director: Pankaj Cordoba MD Potassium [Moles/Vol] 4.4 mmol/L Normal 3.7-5.3 [facility] Comment on above: Result Comment: Spec imen hemolysis has exceeded the interference as defined by Sindy. Value may be falsely increased. Suggest recollection if clinically indicated. Performed By: #### L YTE ####[facility] [address] [place], [place] [phone] Director: Pankaj Cordoba MD Sodium [Moles/Vol] 117 mmol/L Critically low 136-145 [facility] Comment on above: Performed By: #### L YTE ####[facility] [address] [place], [place] [phone] Director: Pankaj Cordoba MD Anion gap [Moles/Vol] 12 mmol/L Normal 9-16 [facility] Comment on above: Performed By: #### L YTE ####[address] [phone] Director: Pankaj Cordoba MD Chloride [Moles/Vol] 89 mmol/L Low 98-107 [facility] Comment on above: Performed By: #### L YTE ####[address] [phone] Director: Pankaj Cordoba MD CO2 [Moles/Vol] 19 mmol/L Low 20-31 [facility] Comment on above: Performed By: #### L YTE ####[address] [phone] Director: Pankaj Cordoba MD Potassium [Moles/Vol] 4.5 mmol/L Normal 3.7-5.3 [facility] Comment on above: Result Comment: Spec imen hemolysis has exceeded the interference as defined by Sindy. Value may be falsely increased. Suggest recollection if clinically indicated. Performed By: #### L YTE ####[facility] [place], [place] [phone] Director: Pankaj Cordoba MD Sodium [Moles/Vol] 120 mmol/L Low 136-145 [facility] Comment on above: Performed By: #### L YTE ####[facility] [place], [place] [phone] Director: Pankaj Cordoba MD Glucose,Whole Bloodon 2024 Glucose [Mass/Vol] 92 mg/dL Normal 75-110 [facility] Glucose [Mass/Vol] 98 mg/dL Normal 75-110 [facility] Glucose [Mass/Vol] 124 mg/dL High 75-110 [facility] Glucose [Mass/Vol] 117 mg/dL High 75-110 [facility] Osmolalityon 06-03-2025 Interpretation and review of laboratory results Abnormal [facility] Osmolality [Osmolality] 251 mosm/kg Low Bon [facility] Osmolality [Osmolality] 251 mosm/kg Low 275-295 [facility] Comment on above: Performed By: #### O SMO #### [email or web address] [address] [place] [address] Business Office Coordinator: Pankaj Cordoba MD POC Glucose Fingerstickon Glucose [Mass/Vol] 92 mg/dL 75 - 110 mg/dL [facility] Glucose [Mass/Vol] 98 mg/dL 75 - 110 mg/dL [facility] Glucose [Mass/Vol] 124 mg/dL High 75 - 110 mg/dL [facility] Interpretation and review of laboratory results Abnormal [facility] Glucose [Mass/Vol] 117 mg/dL High 75 - 110 mg/dL [facility] Interpretation and review of laboratory results Abnormal [facility] PREVIOUS SPECIMENon 06-03-20 25 [facility] PTon 06-03-2025 INR Coag (PPP) [Relative time] 1.7 {INR} Normal [facility] Comment on above: Result Comment: Therapeutic Range: Moderate Anticoagulant Intensity: INR = 2.0-3.0 High Anticoagulant Intensity: INR = 2.5-3.5 Performed By: #### O SMO #### [email or web address] [address] [place] [address] Business Office Coordinator: Pankaj Cordboa MD PT Coag (PPP) [Time] 20.3 s High 11.7-14.9 [facility] Comment on above: Performed By: #### O SMO #### [facility] [address] [place] [address] Business Office Coordinator: Pankaj Cordoba MD Protime-INRon 06-03-2025 INR Coag (PPP) [Relative time] 1.7 {INR} [facility] Comment on above: Therapeutic Range: Moderate Anticoagulant Intensity: INR = 2.0-3.0 High Anticoagulant Intensity: INR = 2.5-3.5 Interpretation and review of laboratory results Abnormal [facility] PT Coag (PPP) [Time] 20.3 s High [facility] Basic Metab w/rfx MGon 06-02 Anion gap [Moles/Vol] 13 mmol/L Normal 9-16 [facility] Comment on above: Performed By: #### B MPX, PT, CDP ####[facility] [address] [place], [place] [phone] Director: Pankaj Cordoba MD Calcium [Mass/Vol] 9.1 mg/dL Normal 8.6-10.4 [facility] Comment on above: Performed By: #### B MPX, PT, CDP ####[facility] [address] [place] [address] Lab Director: Pankaj Cordoba MD Chloride [Moles/Vol] 96 mmol/L Low 98-107 [facility] Comment on above: Performed By: #### B MPX, PT, CDP ####[facility] [address] [place] [address] Lab Director: Pankaj Cordoba MD CO2 [Moles/Vol] 20 mmol/L Normal 20-31 [facility] Comment on above: Performed By: #### B MPX, PT, CDP ####[facility] [address] [place] [address] Lab Director: Pankaj Cordoba MD Creatinine [Mass/Vol] 0.8 mg/dL Normal 0.7-1.2 [facility] Comment on above: Performed By: #### B MPX, PT, CDP ####[facility] [address] [place] [address] Lab Director: Pankaj Cordoba MD GFR/1.73 sq M.predicted among non-blacks MDRD (S/P/Bld) [Vol rate/Area] 88 mL/min/{1.73_m2} Normal >60 [facility] Comment on above: Result Comment: These results [...] Performed By: #### B MPX, PT, CDP ####[facility] [address] [place] [address] [phone] Director: Pankaj Cordoba MD Glucose [Mass/Vol] 117 mg/dL High 74-99 [facility] Comment on above: Performed By: #### B MPX, PT, CDP ####[facility] [address] [place] [address] [phone] Director: Pankaj Cordoba MD Potassium [Moles/Vol] 4.7 mmol/L Normal 3.7-5.3 [facility] Comment on above: Performed By: #### B MPX, PT, CDP ####[facility] [address] [place] [address] [phone] Director: Pankaj Cordoba MD Sodium [Moles/Vol] 129 mmol/L Low 136-145 [facility] Comment on above: Performed By: #### B MPX, PT, CDP ####[facility] [address] [place] [address] lab Director: Pankaj Cordoba MD Urea nitrogen [Mass/Vol] 16 mg/dL Normal 8-23 [facility] Comment on above: Performed By: #### B MPX, PT, CDP ####[facility] [address] [place] [address] lab Director: Pankaj Cordoba MD Basic Metabolic Panel w/ Ref maura to MGon 06-02-2025 Anion gap [Moles/Vol] 13 mmol/L 9 - 16 mmol/L [facility] Calcium [Mass/Vol] 9.1 mg/dL 8.6 - 10. 4 mg/dL [facility] Chloride [Moles/Vol] 96 mmol/L Low 98 - 10 7 mmol/L [facility] CO2 [Moles/Vol] 20 mmol/L 20 - 31 mmol/L [facility] Creatinine [Mass/Vol] 0.8 mg/dL 0.7 - 1.2 mg/dL [facility] Est, Glom Filt Rate 88 - PINF [facility] Comment on above: These results are not [...] 117 mg/dL High 74 - 99 mg/dL [facility] Interpretation and review of laboratory results Abnormal [facility] Potassium [Moles/Vol] 4.7 mmol/L 3.7 - 5.3 mmol/L [facility] Sodium [Moles/Vol] 129 mmol/L Low 136 - 145 mmol/L [facility] Urea nitrogen [Mass/Vol] 16 mg/dL 8 - 23 mg/dL [facility] CBC with Auto Differentialon 06-02-2025 Basophils (Bld) [#/Vol] 0.06 10*3/uL [facility] Basophils/100 WBC (Bld) 1 % 0 - 2 % [facility] Eosinophils (Bld) [#/Vol] 0.08 10*3/uL [facility] Eosinophils/100 WBC (Bld) 1 % 1 - 4 % [facility] Erythrocyte distribution width (RBC) [Ratio] 13.2 % 11.8 - 14.4 % [facility] Hematocrit (Bld) [Volume fraction] 36.5 % Low 40.7 - 50.3 % [facility] Hemoglobin (Bld) [Mass/Vol] 12.3 g/dL Low 13.0 - 17.0 g/dL [facility] Immature granulocytes (Bld) [#/Vol] [facility] Immature granulocytes/100 WBC (Bld) 0 % 0 [facility] Interpretation and review of laboratory results Abnormal [facility] Lymphocytes/100 WBC (Bld) 25 % 24 - 43 % [facility] Lymphocytes/100 WBC (Bld) 1.93 % [facility] MCH (RBC) [Entitic mass] 30.7 pg 25.2 - 33.5 pg [facility] MCHC (RBC) [Mass/Vol] 33.7 g/dL 28.4 - 34.8 g/dL [facility] MCV (RBC) [Entitic vol] 91 fL 82.6 - 102.9 fL [facility] Monocytes/100 WBC (Bld) 11 % 3 - 12 % [facility] Monocytes/100 WBC (Bld) 0.84 % [facility] Neutrophils/100 WBC (Bld) 62 % 36 - 65 % [facility] Nucleated RBC/100 WBC (Bld) [Ratio] 0 % 0.0 per 100 WBC [facility] Platelet mean volume (Bld) [Entitic vol] 11.3 fL 8.1 - 13.5 fL [facility] Platelets (Bld) [#/Vol] 147 10*3/uL [facility] RBC (Bld) [#/Vol] 4.01 10*6/uL Low 4.21 - 5.7 7 m/uL [facility] Segmented neutrophils/100 WBC (Bld) 4.88 % [facility] WBC other (Bld) [#/Vol] 7.8 [facility] CBC with Diffon 06-02-2025 Abs. Basophil 0.06 k/uL Normal 0.00-0.20 [facility] Comment on above: Performed By: #### B MPX, PT, CDP ####[facility] [address] [place], [place] [address])[phone] Director: Pankaj Cordoba MD Abs.Imm.Granulocyte <0.03 Normal 0.00-0.30 [facility] Comment on above: Performed By: #### B MPX, PT, CDP ####[facility] [address] [place], [place] [address])[phone] Director: Pankaj Cordoba MD Abs.Neutrophil (Seg) 4.88 k/uL Normal 1.50-8.10 [facility] Comment on above: Performed By: #### B MPX, PT, CDP ####[facility] [address] [place], [place] [address])[phone] Director: Pankaj Cordoba MD Basophils/100 WBC (Bld) 1 % Normal 0-2 [facility] Comment on above: Performed By: #### B MPX, PT, CDP ####[facility] [address] [place], [place] [address])[phone] Director: Pankaj Cordoba MD Eosinophils (Bld) [#/Vol] 0.08 10*3/uL Normal 0.00-0.44 [facility] Comment on above: Performed By: #### B MPX, PT, CDP ####[facility] [address] [place] [address])[phone] Director: Pankaj Cordoba MD Eosinophils/100 WBC (Bld) 1 % Normal 1-4 [facility] Comment on above: Performed By: #### B MPX, PT, CDP ####[facility] [address] [place], [place] [address], [place] [address] Lab Director: Pankaj Cordoba MD Erythrocyte distribution width (RBC) [Ratio] 13.2 % Normal 11.8-14.4 [facility] Comment on above: Performed By: #### B MPX, PT, CDP ####[facility] [address] [place] [address] [phone] Director: Pankaj Cordoba MD Hematocrit (Bld) [Volume fraction] 36.5 % Low 40.7-50.3 [facility] Comment on above: Performed By: #### B MPX, PT, CDP ####[address] [address])[phone] Director: Pankaj Cordoba MD Hemoglobin (Bld) [Mass/Vol] 12.3 g/dL Low 13.0-17.0 [facility] Comment on above: Performed By: #### B MPX, PT, CDP ####[address] [phone] Director: Pankaj Cordoba MD Immature granulocytes/100 WBC (Bld) 0 % Normal 0 [facility] Comment on above: Performed By: #### B MPX, PT, CDP ####[address] [phone] Director: Pankaj Cordoba MD Lymphocytes (Bld) [#/Vol] 1.93 10*3/uL Normal 1.10-3.70 [facility] Comment on above: Performed By: #### B MPX, PT, CDP ####[address] [phone] Director: Pankaj Cordoba MD Lymphocytes/100 WBC (Bld) 25 % Normal 24-43 [facility] Comment on above: Performed By: #### B MPX, PT, CDP ####[facility] [address] [place] [address] [phone] Director: Pankaj Cordoba MD MCH (RBC) [Entitic mass] 30.7 pg Normal 25.2-33.5 [facility] Comment on above: Performed By: #### B MPX, PT, CDP ####[facility] [address] [place], [place] [phone] Director: Pankaj Cordoba MD MCHC (RBC) [Mass/Vol] 33.7 g/dL Normal 28.4-34.8 [facility] Comment on above: Performed By: #### B MPX, PT, CDP ####[facility] [address] [place] [address])[phone] Director: Pankaj Cordoba MD MCV (RBC) [Entitic vol] 91.0 fL Normal 82.6-102.9 [facility] Comment on above: Performed By: #### B MPX, PT, CDP ####[facility] [address] [place] [address] [phone] Director: Pankaj Cordoba MD Monocytes (Bld) [#/Vol] 0.84 10*3/uL Normal 0.10-1.20 [facility] Comment on above: Performed By: #### B MPX, PT, CDP ####[facility] [address] [place] [address] [phone] Director: Pankaj Cordoba MD Monocytes/100 WBC (Bld) 11 % Normal 3-12 [facility] Comment on above: Performed By: #### B MPX, PT, CDP ####[facility] [address] [place], [place] [phone] Director: Pankaj Cordoba MD Neutrophil (Seg) 62 % Normal 36-65 [facility] Comment on above: Performed By: #### B MPX, PT, CDP ####[facility] [address] [place], [place] [phone] Director: Pankaj Cordoba MD NRBC Automated 0.0 per 100 WBC Normal 0.0 [facility] Comment on above: Performed By: #### B MPX, PT, CDP ####[facility] [address] [place], [place] [phone] Director: Pankaj Cordoba MD Platelet mean volume (Bld) [Entitic vol] 11.3 fL Normal 8.1-13.5 [facility] Comment on above: Performed By: #### B MPX, PT, CDP ####[facility] [address] [place], [place] [id number])[phone] Director: Pankaj Cordoba MD Platelets (Bld) [#/Vol] 147 10*3/uL Normal 138-453 [facility] Comment on above: Performed By: #### B MPX, PT, CDP ####[facility] [address] [place], [place] [phone] Director: Pankaj Cordoba MD RBC (Bld) [#/Vol] 4.01 10*6/uL Low 4.21-5.77 [facility] Comment on above: Performed By: #### B MPX, PT, CDP ####[facility] [address] [place] [address] Lab Director: Pankaj Cordoba MD WBC (Bld) [#/Vol] 7.8 10*3/uL Normal 3.5-11.3 [facility] Comment on above: Performed By: #### B MPX, PT, CDP ####[facility] [address] [place], [place] [phone] Director: Pankaj Cordoba MD Glucose,Whole Bloodon 2024 Glucose [Mass/Vol] 127 mg/dL High 75-110 [facility] Glucose [Mass/Vol] 109 mg/dL Normal 75-110 [facility] Glucose [Mass/Vol] 110 mg/dL Normal 75-110 [facility] POC Glucose Fingerstickon Glucose [Mass/Vol] 127 mg/dL High 75 - 110 mg/dL [facility] Interpretation and review of laboratory results Abnormal [facility] Glucose [Mass/Vol] 109 mg/dL 75 - 110 mg/dL [facility] Glucose [Mass/Vol] 110 mg/dL 75 - 110 mg/dL [facility] PTon 06-02-2025 INR Coag (PPP) [Relative time] 1.9 {INR} Normal [facility] Comment on above: Result Comment: Therapeutic Range: Moderate Anticoagulant Intensity: INR = 2.0-3.0 High Anticoagulant Intensity: INR = 2.5-3.5 Performed By: #### B MPX, PT, CDP ####[facility] [address] [place], [place] [id number] lab Director: Pankaj Cordoba MD PT Coag (PPP) [Time] 22.2 s High 11.7-14.9 [facility] Comment on above: Performed By: #### B MPX, PT, CDP ####[facility] [address] [place] [address] lab Director: Pankaj Cordoba MD Protime-INRon 06-02-2025 INR Coag (PPP) [Relative time] 1.9 {INR} [facility] Comment on above: Therapeutic Range: Moderate Anticoagulant Intensity: INR = 2.0-3.0 High Anticoagulant Intensity: INR = 2.5-3.5 Interpretation and review of laboratory results Abnormal [facility] PT Coag (PPP) [Time] 22.2 s High [facility] CHEMISTRYOrdered By: Christine Stevens on 05-20-2025 Albumin [...] mg/dL Normal <=149mg/dL [facility] CHEMISTRYOrdered By: Rboerta Julien on 05-20-2025 HbA1c (Bld) [Mass fraction] 5.6 % Normal <=5.9% [facility] ChemAutoSS [id number] 05-20-2025 HbA1c (Bld) [Mass fraction] 5.6 % Normal <=5.9 [facility] Comment on above: Performed By: #### 7 [id number] #### [facility] [address] [place] [address] Lipid Panelon 05-20-2025 Cholesterol [Mass/Vol] 150 mg/dL Normal 120-200 [facility] Comment on above: Performed By: #### 2 [id number] #### [facility] [address] [place] [address] Cholesterol in HDL [Mass/Vol] 57 mg/dL Invalid Interpretation Code [facility] Comment on above: Result Comment: '>= 60 LOW RISK' '<= 40 HIGH RISK' Performed By: #### 2 [id number] #### [facility] [address] [place] [address] Cholesterol in LDL [Mass/Vol] 77 mg/dL Normal <=129 [facility] Comment on above: Performed By: #### 2 [id number] #### [facility] [address] [place] [address] Cholesterol in VLDL [Mass/Vol] 11 mg/dL Normal 7-40 [facility] Comment on above: Performed By: #### 2 [id number] #### [facility] [address] [place] [address] Triglyceride [Mass/Vol] 53 mg/dL Normal <=149 [facility] Comment on above: Performed By: #### 2 [id number] #### [facility] [address] [place] [address] U MA/Cr Ratioon 05-20-2025 Microalb/Cr Ratio NOT CALCULATED Invalid Interpretation Code .0-30.0 [facility] Comment on above: Result Comment: 30-3 00 mg/g Cr indicates an increased risk for diabetic nephropathy. >300 mg/g Cr is consistent with clinical nephropathy. Performed By: #### 1 [id number] #### [facility] [address] [place] [address] U Creatinine 62.9 mg/dL Invalid Interpretation Code [facility] Comment on above: Performed By: #### 1 [id number] #### [facility] [address] [place] [address] U Microalb <0.7 Normal 0.0-1.9 [facility] Comment on above: Performed By: #### 1 [id number] #### [facility] [address] [place] [address] Ambulatory Visit Summaryon 0 05-09-2025 Ambulatory Visit Summary Ambulatory Visit Summary DARIEL ZABALA :1940 Visit Date:05/09/2025 Ambulatory Visit Instructions Your Diagnosis Encounter for subsequent annual wellness visit (AWV) in Medicare patient DM type 2 causing vascular disease Longstanding persistent atrial fibrillation Hard of hearing Hyperlipidemia Hypothyroid Hyponatremia History of recent fall Overweight (BMI 25.0-29.9) Your Care Team Attending Physician - Edwin Garcia MD Primary Care Physician - Edwin Garcia MD This Is Your Medications List [...] Appointments Tuesday 8:20 AM EDT With: Where: [address] [address]- Tuesday 10:40 AM EDT With: YANIQUE MCNEILL CNP Where: [address] [phone]- [id number] 8:00 AM EDT With: Where: [address] [address]- You Need to Complete the Following HgbA1c, [...] Capsules By Mouth Every day Pickup at [facility] Unchanged Turmeric (Turmeric 500 mg oral capsule) 1 Capsules By Mouth Every day as needed for Prophylaxis Unchanged ubiquinone (CoQ10) See instructions Unchanged warfarin (warfarin 5 mg Tab) 1 Tablets By Mouth Every day Pharmacy Information [facility]: [address] [facility] ANDERSON Cristobal [phone] Allergies No Known Medication Allergies Problems Ongoing [...] in a (more content not included)... Normal [facility] Office/Clini c Noteon 05-09-2025 Family [...] of clutter to prevent tripping and/or falling. [place] Advance Directives reviewed, at home. Encouraged to [...] patient requests, he will have completed at [facility] prior to next PCP visit. Colonoscopy screenings [...] Voices understandin (more content not included)... Normal [facility] Comment on above: Result Comment: Elec tronically Signed By: YANIQUE MCNEILL CNP\.br\Date and Time Signed: 05/09/25 11:11 EDT\.br\Electronically Co-Signed By: Angelica Crews\.br\Date and Time Co-Signed: 05/09/25 11:02 EDT Ambulatory Visit Summaryon 0 02-05-2025 Ambulatory Visit Summary Ambulatory Visit Summary DARIEL ZABALA :1940 Visit Date:02/05/2025 Ambulatory Visit Instructions Your Diagnosis Hyponatremia BMI 25.0-25.9,adult Nonsmoker Overweight (BMI 25.0-29.9) Your Care Team Attending Physician - Edwin Garcia MD Primary Care Physician - Edwin Garcia MD This Is Your Medications List [...] Follow-Up Appointments 2024 8:00 AM EDT Where: [place] [phone] Medications What How Much When Instructions Unchanged [...] for choosing us for your care. Normal [facility] BMPon 02-05-2025 Anion gap [Moles/Vol] 8 mmol/L Normal 6-16 [facility] Comment on above: Performed By: #### 2 [id number] #### [facility] [address] [place] [address] Calcium [Mass/Vol] 8.8 mg/dL Low 8.9-11.1 [facility] Comment on above: Performed By: #### 2 [id number] #### [facility] [address] [place] [address] Chloride [Moles/Vol] 99 mmol/L Low 101-111 [facility] Comment on above: Performed By: #### 2 [id number] #### [facility] [address] [place] [address] CO2 [Moles/Vol] 28 mmol/L Normal 21-31 [facility] Comment on above: Performed By: #### 2 [id number] #### [facility] [address] [place] [address] Creatinine [Mass/Vol] 1.0 mg/dL Normal 0.5-1.3 [facility] Comment on above: Performed By: #### 2 [id number] #### [facility] [address] [place] [address] Glucose [Mass/Vol] 104 mg/dL Normal 55-199 [facility] Comment on above: Performed By: #### 2 [id number] #### [facility] [address] [place] [address] Potassium [Moles/Vol] 4.2 mmol/L Normal 3.5-5.3 [facility] Comment on above: Performed By: #### 2 [id number] #### [facility] [address] [place] [address] Sodium [Moles/Vol] 131 mmol/L Low 135-145 [facility] Comment on above: Performed By: #### 2 [id number] #### [facility] [address] [place] [address] Urea nitrogen [Mass/Vol] 13 mg/dL Normal 5-21 [facility] Comment on above: Performed By: #### 2 [id number] #### [facility] [address] [place] [address] Urea nitrogen/Creatinine [Mass ratio] 13 No Units Normal 10-20 [facility] Comment on above: Performed By: #### 2 [id number] #### [facility] [address] [place] [address] CHEMISTRYOrdered By: SYSTEM SYSTEM on 02-05-2025 Anion [...] Chem eGFR 75 mL/min/1.73 m2 Normal >=59mL/min / 1.73 m2 Remisol Chem Glucose [Mass/Vol] 104 mg/dL [...] reports as effective. 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 The [...] confirmation of an upcoming appointment with a can conveyor feeder later in February to further assess their [...] mcg(0.025 mg) (more content not included)... Normal [facility] Comment on above: Result Comment: Elec tronically Signed By: Edwin Garcia MD\.br\Date and Time Signed: 02/05/25 13:47 EDT eGFRon 02-05-2025 eGFR 75 mL/min/1.73 m2 Normal >=59 [facility] Comment on above: Performed By: #### 1 [id number] #### [facility] [address] [place] [address] Ambulatory Visit Summaryon 0 01-24-2025 Ambulatory Visit Summary Ambulatory Visit Summary DARIEL ZABALA :1940 Visit Date:01/24/2025 Ambulatory Visit Instructions Your Diagnosis BMI 25.0-25.9,adult Overweight (BMI 25.0-29.9) Nonsmoker Hyponatremia Hard of hearing Hypothyroid Your Care Team Attending Physician - Edwin Garcia MD Primary Care Physician - Edwin Garcia MD This Is Your Medications List [...] Follow-Up Appointments Tuesday 1:30 PM EDT With: Adam COHN, Edwin Cole Where: [address] [phone] [phone] 8:00 AM EDT With: Where: [address] [id number]- Medications What How Much When Instructions Changed sodium chloride (Sodium Chloride 1 g oral tablet) See instructions 1 gram orally BID Pickup at [facility] Unchanged atenolol (atenolol 25 mg Tab) [...] physician if questions or concerns Pharmacy Information [facility]: [address] [facility] ANDERSON Cristobal [phone] Allergies No Known Medication Allergies Problems Ongoing [...] in adult (more content not included)... Normal [facility] BMPon 01-24-2025 Anion gap [Moles/Vol] 9 mmol/L Normal 6-16 [facility] Comment on above: Performed By: #### 2 [id number] #### [facility] [address] [place] [address] Calcium [Mass/Vol] 8.8 mg/dL Low 8.9-11.1 [facility] Comment on above: Performed By: #### 2 [id number] #### [facility] [address] [place] [address] Chloride [Moles/Vol] 98 mmol/L Low 101-111 [facility] Comment on above: Performed By: #### 2 [id number] #### [facility] [address] [place] [address] CO2 [Moles/Vol] 27 mmol/L Normal 21-31 [facility] Comment on above: Performed By: #### 2 688531 #### [facility] [address] [place] [address] Creatinine [Mass/Vol] 1.0 mg/dL Normal 0.5-1.3 [facility] Comment on above: Performed By: #### 2 [id number] #### [facility] [address] [place] [address] Glucose [Mass/Vol] 114 mg/dL Normal 55-199 [facility] Comment on above: Performed By: #### 2 [id number] #### [facility] [address] [place] [address] Potassium [Moles/Vol] 4.5 mmol/L Normal 3.5-5.3 [facility] Comment on above: Performed By: #### 2 [id number] #### [facility] [address] [place] [address] Sodium [Moles/Vol] 129 mmol/L Low 135-145 [facility] Comment on above: Performed By: #### 2 379120 #### [facility] [address] [place] [address] Urea nitrogen [Mass/Vol] 12 mg/dL Normal 5-21 [facility] Comment on above: Performed By: #### 2 [id number] #### [facility] [address] [place] [address] Urea nitrogen/Creatinine [Mass ratio] 12 No Units Normal 10-20 [facility] Comment on above: Performed By: #### 2 130260 #### [facility] [address] [place] [address] CHEMISTRYOrdered By: SYSTEM SYSTEM on 01-24-2025 Anion [...] Chem eGFR 75 mL/min/1.73 m2 Normal >=59mL/min / 1.73 m2 Remisol Chem Glucose [Mass/Vol] 114 mg/dL [...] wear the damaged aids, requiring a future broadcast correspondent visit to resolve this issue. Moreover, the patient is under management for hypothyroidism, consistently taking his prescribed thyroid medication as directed. He denies experiencing notable symptoms of hypothyroidism, such as coldness or heightened fatigue. His reported increased daytime sleep appears to be associated more with lifestyle factors than with hypothyroidism. - Monitoring and follow-up for hyponatremia through scheduled nephrology appointment. - Anticipated broadcast correspondent visit for hearing aid assessment and repair [...] The patient will follow up with a can conveyor feeder for further evaluation and management of hyponatremia. We will adjust the sodium supplementation based on the upcoming lab results. Ordered: Basic Metabolic Panel Lab Specimen Collect [address] TSH With T4fr Reflex 5. 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 An appointment with an appropriate broadcast correspondent has been planned to assess and replace [...] ensure therap (more content not included)... Normal [facility] Comment on above: Result Comment: Elec tronically Signed By: Adam COHN, Edwin Cole\.br\Date and Time Signed: 01/24/25 14:16 EDT TSH With T4fr Reflexon 01-24 TSH Qn 2.69 m[IU]/L Normal 0.34-5.60 [facility] Comment on above: Performed By: #### 1 [id number] #### [facility] [address] [place] [address] eGFRon 01-24-2025 eGFR 75 mL/min/1.73 m2 Normal >=59 [facility] Comment on above: Performed By: #### 1 [id number] #### [facility] [address] [place] [address] Population Healthon 01-15-20 [facility] Case Information Case Priority: None Programs: -- Referral Source: Amusement [employer] Recreation Card Checker Referral Reason: Care coordination Case Type: Transition Care Management Risk Score: -- Case Status: Enrolled (December 17, 2024) Date Assigned: December 17, 2024 Assigned By: Alec Rodrigez Date Enrolled: December 17, 2024 Assigned Primary Personnel: Elia, Alec R Assigned Secondary Personnel: -- Case Physician: Edwin Garcia MD Problems Ongoing ASCVD (arteriosclerotic cardiovascular [...] See tcm note. Created By: Alec Rodrigez [facility] BMPon 01-09-2025 Anion gap [Moles/Vol] 9 mmol/L Normal 6-16 [facility] Comment on above: Performed By: #### 2 [id number] #### [facility] [address] [place] [address] Calcium [Mass/Vol] 9.0 mg/dL Normal 8.9-11.1 [facility] Comment on above: Performed By: #### 2 744171 #### [facility] [address] [place] [address] Chloride [Moles/Vol] 93 mmol/L Low 101-111 [facility] Comment on above: Performed By: #### 2 486856 #### [facility] [address] [place] [address] CO2 [Moles/Vol] 27 mmol/L Normal 21-31 [facility] Comment on above: Performed By: #### 2 [id number] #### [facility] [address] [place] [address] Creatinine [Mass/Vol] 0.8 mg/dL Normal 0.5-1.3 [facility] Comment on above: Performed By: #### 2 [id number] #### [facility] [address] [place] [address] Glucose [Mass/Vol] 110 mg/dL Normal 55-199 [facility] Comment on above: Performed By: #### 2 119245 #### [facility] [address] [place] [address] Potassium [Moles/Vol] 4.1 mmol/L Normal 3.5-5.3 [facility] Comment on above: Performed By: #### 2 [id number] #### [facility] [address] [place] [address] Sodium [Moles/Vol] 125 mmol/L Low 135-145 [facility] Comment on above: Performed By: #### 2 638255 #### [facility] [address] [place] [address] Urea nitrogen [Mass/Vol] 12 mg/dL Normal 5-21 [facility] Comment on above: Performed By: #### 2 522392 #### [facility] [address] [place] [address] Urea nitrogen/Creatinine [Mass ratio] 15 No Units Normal 10-20 [facility] Comment on above: Performed By: #### 2 [id number] #### [facility] [address] [place] [address] CHEMISTRYOrdered By: SYSTEM SYSTEM on 01-09-2025 Anion [...] Chem eGFR 88 mL/min/1.73 m2 Normal >=59mL/min / 1.73 m2 Remisol Chem Glucose [Mass/Vol] 110 mg/dL [...] 01-09-2025 eGFR 88 mL/min/1.73 m2 Normal >=59 [facility] Comment on above: Performed By: #### 1 [id number] #### [facility] [address] [place] [address] Population Health 01-07-20 [facility] Case Information Case Priority: None Programs: -- Referral Source: Amusement [employer] Recreation Card Checker Referral Reason: Care coordination Case Type: Transition Care Management Risk Score: -- Case Status: Enrolled (December 17, 2024) Date Assigned: December 17, 2024 Assigned By: Alec Rodrigez Date Enrolled: December 17, 2024 Assigned Primary Personnel: Alec Rodrigez Assigned Secondary Personnel: -- Case Physician: Edwin Garcia MD Ongoing ASCVD (arteriosclerotic cardiovascular disease) [...] Case discussion Contact Type: Patient Contact Name: CLIFFORDDARIEL Solitario Notes: TCM#4- see tcm note. Created By: Alec Rodrigez Date: December 31, 2024 Method: Phone call Type: Outbound Duration (min): 1 Outcome: Left message-voicemail Contact Type: Patient Contact Name: VJ DARIEL Notes: TCM#3- attemtped to reach pt for status update, no answer, left for return call. Created By: Alec Rodrigez [...] See tcm note. Created By: Alec Rodrigez [facility] 12-31-2024 Anion gap [Moles/Vol] 10 mmol/L Normal 6-16 [facility] Comment on above: Performed By: #### 2 [id number] #### [facility] [address] [place] [address] Calcium [Mass/Vol] 9.3 mg/dL Normal 8.9-11.1 [facility] Comment on above: Performed By: #### 2 [id number] #### [facility] [address] [place] [address] Chloride [Moles/Vol] 95 mmol/L Low 101-111 [facility] Comment on above: Performed By: #### 2 867989 #### [facility] [address] [place] [address] CO2 [Moles/Vol] 27 mmol/L Normal 21-31 [facility] Comment on above: Performed By: #### 2 038358 #### [facility] [address] [place] [address] Creatinine [Mass/Vol] 0.8 mg/dL Normal 0.5-1.3 [facility] Comment on above: Performed By: #### 2 [id number] #### [facility] [address] [place] [address] Glucose [Mass/Vol] 90 mg/dL Normal 55-199 [facility] Comment on above: Performed By: #### 2 779698 #### [facility] [address] [place] [address] Potassium [Moles/Vol] 4.3 mmol/L Normal 3.5-5.3 [facility] Comment on above: Performed By: #### 2 484873 #### [facility] [address] [place] [address] Sodium [Moles/Vol] 128 mmol/L Low 135-145 [facility] Comment on above: Performed By: #### 2 999093 #### [facility] [address] [place] [address] Urea nitrogen [Mass/Vol] 13 mg/dL Normal 5-21 [facility] Comment on above: Performed By: #### 2 086805 #### [facility] [address] [place] [address] Urea nitrogen/Creatinine [Mass ratio] 16 No Units Normal 10-20 [facility] Comment on above: Performed By: #### 2 [id number] #### [facility] [address] [place] [address] CHEMISTRYOrdered By: SYSTEM SYSTEM on 12-31-2024 Anion [...] Chem eGFR 88 mL/min/1.73 m2 Normal >=59mL/min / 1.73 m2 Remisol Chem Glucose [Mass/Vol] 90 mg/dL [...] 12-31-2024 eGFR 88 mL/min/1.73 m2 Normal >=59 [facility] Comment on above: Performed By: #### 1 [id number] #### [facility] [address] [place] [address] Family Medicine Office/Clini c Noteon 12-24-2024 Family Medicine Office/Clinic Note Family Medicine Office/Clinic Note Chief Complaint 1wk follow up Concerns about sodium levels and evaluation of overall health status. HPI Staff 1wk follow up IAM referred to nephrology. Has appt 03/20/25 w/Dr Lara. BUN: 10 mg/dL (12/17/24 15::) Calcium Lvl: 9.1 mg/dL (12/17/24::) Chloride: 98 mmol/L Low (12/17/24::) CO2: 27 mmol/L (12/17/24::) Creatinine: 0.9 mg/dL (12/17/24::) eGFR: 85 mL/min/1.73 m2 (12/17/24::) Glucose Lvl: 113 mg/dL (12/17/24::) Potassium Lvl: 3.9 mmol/L (12/17/24::) Sodium Lvl: 131 mmol/L Low (12/17/24::) No new concerns at this time. History [...] changes. We (more content not included)... Normal [facility] Comment on above: Result Comment: Elec tronically Signed By: Edwin Garcia MD\.br\Date and Time Signed: 12/24/24 13:31 [facility] 12-24-[facility] Case Information Case Priority: None Programs: -- Referral Source: Amusement [employer] Recreation Card Checker Referral Reason: Care coordination Case Type: Transition Care Management Risk Score: -- Case Status: Enrolled (December 17, 2024) Date Assigned: December 17, 2024 Assigned By: Alec Rodrigez Date Enrolled: December 17, 2024 Assigned Primary Personnel: Alec Rodrigez Assigned Secondary Personnel: -- Case Physician: Edwin Garcia MD Problems Ongoing ASCVD (arteriosclerotic cardiovascular [...] tcm note. Created By: Alec Rodrigez Normal [facility] BMPon 12-18-2024 Anion gap [Moles/Vol] 10 mmol/L Normal 6-16 [facility] Comment on above: Performed By: #### 2 [id number] #### [facility] [address] [place] [address] Calcium [Mass/Vol] 9.1 mg/dL Normal 8.9-11.1 [facility] Comment on above: Performed By: #### 2 [id number] #### [facility] [address] [facility] [place] [address] Chloride [Moles/Vol] 98 mmol/L Low 101-111 [facility] Comment on above: Performed By: #### 2 [id number] #### [facility] [address] [place] [address] CO2 [Moles/Vol] 27 mmol/L Normal 21-31 [facility] Comment on above: Performed By: #### 2 109326 #### [facility] [address] [facility] [place] [address] Creatinine [Mass/Vol] 0.9 mg/dL Normal 0.5-1.3 [facility] Comment on above: Performed By: #### 2 663856 #### [facility] [address] [facility] [place] [address] Glucose [Mass/Vol] 113 mg/dL Normal 55-199 [facility] Comment on above: Performed By: #### 2 673625 #### [facility] [address] [place] [address] Potassium [Moles/Vol] 3.9 mmol/L Normal 3.5-5.3 [facility] Comment on above: Performed By: #### 2 761877 #### [facility] [address] [place] [address] Sodium [Moles/Vol] 131 mmol/L Low 135-145 [facility] Comment on above: Performed By: #### 2 [id number] #### [facility] [address] [place] [address] Urea nitrogen [Mass/Vol] 10 mg/dL Normal 5-21 [facility] Comment on above: Performed By: #### 2 [id number] #### [facility] [address] [place] [address] Urea nitrogen/Creatinine [Mass ratio] 11 No Units Normal 10-20 [facility] Comment on above: Performed By: #### 2 [id number] #### [facility] [address] [place] [address] eGFRon 12-18-2024 eGFR 85 mL/min/1.73 m2 Normal >=59 [facility] Comment on above: Performed By: #### 1 [id number] #### [facility] [address] [place] [address] Family Medicine Office/Clini c Noteon 12-17-2024 Family Medicine Office/Clinic Note Family Medicine Office/Clinic Note Chief Complaint ER follow up Confusion and persistent fatigue post-discharge with a concern for recurrent hyponatremia HPI Staff Pt presents today for ER follow up. Hospital: [facility] Visit date:12/14/24 Symptoms the patient presented [...] up with Nephrology. Ordered: Basic Metabolic Panel [facility] [place] Referral 2. 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 Ordered: Basic Metabolic Panel [facility] [place] Referral 3. Longstanding persistent atrial fibrillation (I48.11: Longstanding persistent atrial fibrillation) Maintain current management regime, evaluate rhythm control, and anticoagulation status during follow-up visits. Ordered: Basic Metabolic Panel [facility] [place] Ambulatory Referral 4. Hyponatremia (E87.1: Hypo-osmolality and hyponatremia) Continue monitoring sodium levels closely, with recommended nephrology review for stabilization strategy. No significant lifestyle factors contributing to sodium imbalance noted. Ordered: Basic Metabolic Panel [facility] [place] Ambulatory Referral 5. Hypothyroid (E03.9: Hypothyroidism, unspecified) Monitor thyroid levels to ensure therapeutic levels are maintained, adjust medications if indicated by lab abnormalities. Ordered: Basic Metabolic Panel [facility] [place] Ambulatory Referral 6. Nonsmoker (Z78.9: Other specified health status) Please continue to not smoke. Ordered: Basic Metabolic Panel Orders: fluticasone nasal, See Instructions, 48 mL, Refill(s) 1, USE 1 SPRAY IN EACH NOSTRIL TWICE A DAY, [id number], 178, cm, 08/28/24 14:50:00 EDT, Height/Length Dosing, 82.2, kg, 08/28/24 14:50:00 EDT, Weight Dosing sodium chloride, See Instructions, 1 gram orally daily, # 90 tab(s), Refills(s) 0, Pharmacy: [facility], 178.6, cm, 12/17/24 15:05:00 EST, Height/Length Dosing, 78.5, kg, 12/17/24 15: (more content not included)... Normal [facility] Comment on above: Result Comment: Elec tronically Signed By: Edwin Garcia MD\.br\Date and Time Signed: 12/17/24 15:29 EST Population Healthon 12-17-19 [facility] Case Information Case Priority: None Programs: -- Referral Source: Amusement [employer] Recreation Card Checker Referral Reason: Care coordination Case Type: Transition Care Management Risk Score: -- Case Status: Enrolled (December 17, 2024) Date Assigned: December 17, 2024 Assigned By: Alec Rodrigez Date Enrolled: December 17, 2024 Assigned Primary Personnel: Alec Rodrigez Assigned Secondary Personnel: -- Case Physician: Edwin Garcia MD Problems Ongoing ASCVD (arteriosclerotic cardiovascular [...] Daily, 1 refills fluticasone Nasal 0.05 mg/inh [place], See Instructions, Self Directed gabapentin 300 mg [...] name, street address and date of verified Program Enrollment Provides verbal consent for enrollment Goals and Interventions Care Plan Progress Note Admit Date: 12/14/24 [facility] Date of Discharge: 12/15/24 Follow-up appointment [...] cold wea (more content not included)... Normal [facility] Main OR Intraoperative Recor don 11-20-2024 Main OR Intraoperative Record Main OR Intraoperative Record IntraOp Document Type FT Summary Primary Physician: Axel Hernández DO Finalized Date/Time: 11/20/24 07:56:52 Pt. Name: DRAIEL ZABALA.O.B./Sex: 1940 Male Med Rec #: [id number] Physician: Axel Hernández DO Financial #: [id number] Pt. Type: A Room/Bed: Admit/Disch: 11/19/24 09:28:12 [...] Pablo DO, CST, James W Role Performed RAG BALER Surgeon - Primary HOSPITAL EDUCATOR/SA Time In 11/19/24 12:10:00 11/19/24 12:23:00 11/19/24 12:10:00 Time Out 11/19/24 12:37:00 11/19/24 12:35:00 11/19/24 12:37:00 Procedure CARPAL TUNNEL CARPAL TUNNEL CARPAL TUNNEL RELEASE(Left) RELEASE(Left) RELEASE(Left) Comments DR LOU SUPERVISING Last Modified By: Ambrocio Borges Terry T Sweene, Terry T 11/19/24 12:45:19 11/19/24 12:53:03 11/19/24 12:45:19 Entry 4 Entry 5 Case Attendee Ambrocio Borges Laura C Role Performed State Pilot - Primary Scrub - Primary Time In [...] Given Participants Axel Hernández DO, Giana STEEL, Chau Jimenez, Lauren Grant, Ambrocio Borges Time Out Complete 11/19/24 12:23:00 [...] and tissue Entry 1 Skin Integrity Intact, [place], Warm, & Skin Abnormality No Dry Outcomes [...] Hand Ta (more content not included)... Normal [facility] Operative Reporton Operative Report Operative Report [...] Satisfactory Axel Hernández D.O. ca Dictated: 11/19/2024 [id number] Transcribed: 11/19/2024 cc:Edwin Garcia M.D. [facility] Comment on above: Result Comment: Elec tronically Signed By: Catherine ELLIS, Axel T\.br\Date and Time Signed: 11/20/24 16:36 EST BMPon 11-19-2024 Anion gap [Moles/Vol] 10 mmol/L Normal 6-16 [facility] Comment on above: Order Comment: To be drawn day of surgery. Performed By: #### 2 [id number] #### [facility] [address] [place] [address] Calcium [Mass/Vol] 9.2 mg/dL Normal 8.9-11.1 [facility] Comment on above: Order Comment: To be drawn day of surgery. Performed By: #### 2 [id number] #### [facility] [address] [place] [address] Chloride [Moles/Vol] 98 mmol/L Low 101-111 [facility] Comment on above: Order Comment: To be drawn day of surgery. Performed By: #### 2 [id number] #### [facility] [address] [place] [address] CO2 [Moles/Vol] 26 mmol/L Normal 21-31 [facility] Comment on above: Order Comment: To be drawn day of surgery. Performed By: #### 2 [id number] #### [facility] [address] [place] [address] Creatinine [Mass/Vol] 0.9 mg/dL Normal 0.5-1.3 [facility] Comment on above: Order Comment: To be drawn day of surgery. Performed By: #### 2 [id number] #### [facility] [address] [place] [address] Glucose [Mass/Vol] 77 mg/dL Normal 55-199 [facility] Comment on above: Order Comment: To be drawn day of surgery. Performed By: #### 2 [id number] #### [facility] [address] [place] [address] Potassium [Moles/Vol] 4.2 mmol/L Normal 3.5-5.3 [facility] Comment on above: Order Comment: To be drawn day of surgery. Performed By: #### 2 [id number] #### [facility] [address] [place] [address] Sodium [Moles/Vol] 130 mmol/L Low 135-145 [facility] Comment on above: Order Comment: To be drawn day of surgery. Performed By: #### 2 [id number] #### [facility] [address] [place] [address] Urea nitrogen [Mass/Vol] 8 mg/dL Normal 5-21 [facility] Comment on above: Order Comment: To be drawn day of surgery. Performed By: #### 2 [id number] #### [facility] [address] [place] [address] Urea nitrogen/Creatinine [Mass ratio] 9 No Units Low 10-20 [facility] Comment on above: Order Comment: To be drawn day of surgery. Performed By: #### 2 [id number] #### [facility] [address] [place] [address] CHEMISTRYOrdered By: Sara ROP User on 11-19-2024 Glucose [Mass/Vol] 78 mg/dL Normal 55 - 99 mg/dL [facility] POC Subsection Comment on above: Result Comment: Hilary danna Meter POC Username MAYA SOTELO Invalid Interpretation Code [facility] P[facility] Subsection Sodium [Moles/Vol] [id number] mmol/L Invalid Interpretation Code [facility] P[facility] Subsection Sodium [Moles/Vol] [id number] mmol/L Invalid Interpretation Code [facility] POC Subsection CHEMISTRYOrdered By: SYSTEM SYSTEM on [...] Chem eGFR 85 mL/min/1.73 m2 Normal >=59mL/min / 1.73 m2 Remisol Chem Glucose [Mass/Vol] 77 mg/dL [...] 38.5 s High 25.1 - 36.5 second(s) [facility] Auto Coag Comment on above: Interpretive Data: Rashel isbell 15 days - 4 weeks 1 - [...] the same coagulation reagent and instrumentation as [facility]. Currently there are no coagulation studies available worldwide for children to 14 days, and no normal ranges. Heparin therapeutic range (represented by Anti-Factor Xa activity of 0.2 - 0.4 U/mL) corresponds to PTT of 56.6 - 109.0 sec. INR Coag (PPP) [Relative time] 1.11 {INR} Invalid Interpretation Code [facility] Auto Coag Comment on above: Interpretive Data: I NR results are specifically intended to assess patients stabilized on long-term Anticoagulation therapy suggested INR s Less Intensive Anticoagulation 2.0 3.0 Conventional Range 3.0 4.5 PT Coag (PPP) [Time] 12.5 s Normal 9.4 - 1 2.5 second(s) [facility] Comment on above: Interpretive Data: [...] the same coagulation reagent and instrumentation as [facility]. Currently there are no coagulation studies available worldwide for children to 14 days, and no normal ranges. Capillary Glucose POCon Glucose [Mass/Vol] 78 mg/dL Normal 55-99 [facility] Comment on above: Result Comment: Hilary clay Meter Performed By: #### 2 [id number] #### [facility] [address] [place] [address] Discharge Instructionson Discharge Instructions Discharge Instructions DARIEL [...] Clinic 2024 8:00 AM EDT With: Where: [place] [id number]- New Follow Up Appointments after Discharge Follow Up with GORDO Weller When: 11/28/2024 01:00 PM EST Comments: Keep scheduled appointment. Call for any problems. Where: [address] [place] [phone]- [facility] (1) Medications What How Much When Instructions [...] fluticasone nasal (fluticasone Nasal 0.05 mg/ inh [place]) See instructions USE 1 SPRAY IN EACH [...] Allergies No Known Medication Allergies [employer] [place], [place] [facility] CARPAL TUNNEL RELEASE INSTRUCTIONS [...] if the (more content not included)... Normal [facility] Comment on above: Result Comment: Elec tronically Signed By: Dirk KHAN, Maya Vanegas\.br\Date and Time Signed: 11/19/24 13:12 EST [facility] CAPILLARY GLUCOSE POCon 11-19-2024 Glucose [Mass/Vol] 78 mg/dL 55 - 99 mg/dL [facility] Comment on above: Cleaned Meter Original Ordering Provider: DO Axel RUIZISYFINESSE [facility] Main OR PACU I Recordon Main OR PACU I Record Main OR PACU I Record PACU Phase I Document Type FT Summary Primary Physician: Axel Hernández DO Finalized Date/Time: 11/19/24 13:24:52 Pt. Name: DARIEL ZABALA/Sex: 1940 Male Med Rec #: [id number] Physician: Axel Hernández DO Financial #: [id number] Pt. Type: A Room/Bed: Admit/Disch: 11/19/24 09:28:12 [...] Yes Last Modified By: Vicki Sethi RN 11/19/24 13:24:37 Post-Care Text: The patient demonstrates [...] 13:24 Vicki Sethi RN 11/19/24 13:24 Normal [facility] Main OR PACU II Recordon Main OR PACU II Record Main OR PACU II Record PACU Phase II Document Type FT Summary Primary Physician: Axel Hernández DO Finalized Date/Time: 11/19/24 14:27:02 Pt. Name: DARIEL ZABALA/Sex: 1940 Male Med Rec #: [id number] Physician: Axel Hernández DO Financial #: [id number] Pt. Type: A Room/Bed: Admit/Disch: 11/19/24 09:28:12 [...] By: Maya Sotelo RN 11/19/24 14:27 Normal [facility] Main OR Preoperative Recordo n 11-19-2024 Main OR Preoperative Record Main OR Preoperative Record PreOp Document Type FT Summary Primary Physician: Axel Hernández DO Finalized Date/Time: 11/19/24 12:53:23 Pt. Name: CLIFFORDDARIEL Solitario Mary/Sex: 1940 Male Med Rec #: [id number] Physician: Axel Hernández DO Financial #: [id number] Pt. Type: A Room/Bed: Admit/Disch: 11/19/24 09:28:12 [...] 11/19/24 12:53 Ambrocio Borges 11/19/24 12:53 Normal [facility] PT & PTTon 11-19-2024 aPTT Coag (PPP) [Time] 38.5 second(s) High 25.1-36.5 [facility] Comment on above: Result Comment: Para [...] the same coagulation reagent and instrumentation as [facility]. Currently there are no coagulation studies available worldwide for children to 14 days, and no normal ranges. Heparin therapeutic range (represented by Anti-Factor Xa activity of 0.2 - 0.4 U/mL) corresponds to PTT of 56.6 - 109.0 sec. Performed By: #### 1 [id number] #### [facility] [address] [place] [address] INR Coag (PPP) [Relative time] 1.11 {INR} Invalid Interpretation Code [facility] Comment on above: Result Comment: INR results are specifically intended to assess patients stabilized on long-term Anticoagulation therapy suggested INR???s ???Less Intensive Anticoagulation??? 2.0 ??? 3.0 Conventional Range 3.0 ??? 4.5 Performed By: #### 1 [id number] #### [facility] [address] [place] [address] PT Coag (PPP) [Time] 12.5 second(s) Normal 9.4-12.5 [facility] Comment on above: Result Comment: 15 [...] the same coagulation reagent and instrumentation as [facility]. Currently there are no coagulation studies available worldwide for children to 14 days, and no normal ranges. Performed By: #### 1 [id number] #### [facility] [address] [facility] [place] [address] eGFRon 11-19-2024 eGFR 85 mL/min/1.73 m2 Normal >=59 [facility] Comment on above: Performed By: #### 1 [id number] ####[facility] [address] [place] [address] BMPon 11-12-2024 Anion gap [Moles/Vol] 7 mmol/L Normal 6-16 [facility] Comment on above: Performed By: #### 2 [id number] #### [facility] [address] [place] [address] Calcium [Mass/Vol] 8.8 mg/dL Low 8.9-11.1 [facility] Comment on above: Performed By: #### 2 [id number] #### [facility] [address] [place] [address] Chloride [Moles/Vol] 97 mmol/L Low 101-111 [facility] Comment on above: Performed By: #### 2 [id number] #### [facility] [address] [place] [address] CO2 [Moles/Vol] 28 mmol/L Normal 21-31 [facility] Comment on above: Performed By: #### 2 [id number] #### [facility] [address] [place] [address] Creatinine [Mass/Vol] 0.9 mg/dL Normal 0.5-1.3 [facility] Comment on above: Performed By: #### 2 [id number] #### [facility] [address] [facility] [place] [address] Glucose [Mass/Vol] 106 mg/dL Normal 55-199 [facility] Comment on above: Performed By: #### 2 [id number] #### [facility] [address] [place] [address] Potassium [Moles/Vol] 4.4 mmol/L Normal 3.5-5.3 [facility] Comment on above: Performed By: #### 2 [id number] #### [facility] [address] [place] [address] Sodium [Moles/Vol] 128 mmol/L Low 135-145 [facility] Comment on above: Performed By: #### 2 [id number] #### [facility] [address] [facility] [place] [address] Urea nitrogen [Mass/Vol] 12 mg/dL Normal 5-21 [facility] Comment on above: Performed By: #### 2 [id number] #### [facility] [address] [place] [address] Urea nitrogen/Creatinine [Mass ratio] 13 No Units Normal 10-20 [facility] Comment on above: Performed By: #### 2 [id number] #### [facility] [address] [place] [address] CHEMISTRYOrdered By: SYSTEM SYSTEM on 11-12-2024 Anion [...] Chem eGFR 85 mL/min/1.73 m2 Normal >=59mL/min / 1.73 m2 Remisol Chem Glucose [Mass/Vol] 106 mg/dL [...] (Bld) [Mass fraction] 5.4 % Normal <=5.9% [facility] ChemAutoSS [id number] 11-12-2024 HbA1c (Bld) [Mass fraction] 5.4 % Normal <=5.9 [facility] Comment on above: Performed By: #### 7 [id number] #### [facility] [address] [place] [address] Inpatient Patient Summaryon 11-12-2024 Inpatient Patient Summary Inpatient Patient Summary [facility] [address] [place], [place] [address] [facility] Clinical Discharge Instructions PERSON INFORMATION Name: DARIEL ZABALA [facility]#:[id number] PHYSICIANS Admitting Physician: Axel Hernández DO Attending Physician: Axel Hernández DO PCP: Edwin Garcia MD Discharge Diagnosis: Carpal tunnel syndrome on left Comment: PATIENT EDUCATION INFORMATION Instructions: Catherine Gonzalez Carpal Tunnel Release Instructions (Custom) (CUSTOM) Medication Leaflets: Follow up: With: Address: When: Axel Hernández [address] [place] [address] [email or web address] (1) Comments: Keep scheduled appointment Type Location Start [facility] State Surgery [facility] Surgical Services 11/19/2024 2:15 PM 11/19/2024 2:45 PM Confirmed Cardiology Follow Up (FT) [facility] 12/12/2024 10:15 AM 12/12/2024 10:30 AM Confirmed Medicare Wellness Subsequent [facility] 05/02/2025 8:00 AM 05/02/2025 9:00 AM Confirmed [...] 1. fluticasone nasal (fluticasone Nasal 0.05 mg/inh [place]) USE 1 SPRAY IN EACH NOSTRIL TWICE [...] Tablets By Mouth every day. Comment: Normal [facility] Outpatient Surgery Discharge Instructionon 11-12-2024 Outpatient Surgery Discharge Instruction Outpatient Surgery Discharge Instruction [place] [id number] Patient Discharge Instructions PERSON INFORMATION Name: DARIEL [...] Follow up: With: Address: When: Axel Hernández [address] [place] [address] Business (1) Comments: Keep scheduled appointment Type Location Start [facility] Surgery [facility] Surgical Services 11/19/2024 2:15 PM 11/19/2024 2:45 PM Confirmed Cardiology Follow Up (FT) FT.Cardiology Clinic 12/12/2024 10:15 AM 12/12/2024 10:30 AM Confirmed Medicare Wellness Subsequent [facility] 05/02/2025 8:00 AM 05/02/2025 9:00 AM Confirmed [...] 1. fluticasone nasal (fluticasone Nasal 0.05 mg/inh [place]) USE 1 SPRAY IN EACH NOSTRIL TWICE [...] Mouth every day. PATIENT EDUCATION INFORMATION Instructions: [place], [place] [facility] CARPAL TUNNEL RELEASE INSTRUCTIONS Post-Operative Week One You will be in a soft dressing from mid palm to forearm. Please remove dressing two days after surgery. At that point, clean daily with peroxide or betadine and place daily fresh bandaids. Cover for showers with waterproof bandaid, op site occlusive dressing (more content not included)... Normal [facility] TSH With T4fr Reflexon 11-12 TSH Qn 2.17 m[IU]/L Normal 0.34-5.60 [facility] Comment on above: Performed By: #### 1 [id number] #### [facility] [address] [place] [address] eGFRon 11-12-2024 eGFR 85 mL/min/1.73 m2 Normal >=59 [facility] Comment on above: Performed By: #### 1 [id number] #### [facility] [address] [place] [address] Ambulatory Visit Summaryon 1 01-02-2024 Ambulatory Visit Summary Ambulatory Visit Summary DARIEL ZABALA :1940 Visit Date:11/01/2024 Ambulatory Visit Instructions Your Diagnosis ASCVD (arteriosclerotic cardiovascular disease) DM type 2 causing vascular disease Longstanding persistent atrial fibrillation Back spasm Erectile dysfunction due to arterial insufficiency Hypothyroid Hyponatremia BMI 25.0-25.9,adult Over weight Nonsmoker Your Care Team Attending Physician - Edwin Garcia MD Primary Care Physician - Edwin Garcia MD This Is Your Medications List Turmeric (Turmeric 500 mg oral capsule) atenolol (atenolol 25 mg Tab) cholecalciferol (D3) cyanocobalamin (Vitamin B12) finasteride (finasteride 5 mg Tab) fluticasone nasal (fluticasone Nasal 0.05 mg/inh [place]) gabapentin (gabapentin 300 mg Cap) glimepiride (glimepiride [...] Appointments Tuesday 9:20 AM EST With: Where: [address] [address]- Tuesday 2:15 PM EST With: Where: [facility] Tuesday 10:15 AM EST With: Dixon Dubose PA-C Where: [facility]iology Clinic 2024 8:00 AM EDT With: Where: [address] [address]- Medications What How Much When Instructions Unchanged [...] fluticasone nasal (fluticasone Nasal 0.05 mg/ inh [place]) See instructions USE 1 SPRAY IN EACH [...] for choosing us for your care. Normal [facility] Family Medicine Office/Clini c Noteon 11-01-2024 [...] cardiovascular disease) (I25.10: Atherosclerotic heart disease of kaibab coronary artery without angina pectoris) Denies CP. [...] Recent) 3074 (more content not included)... Normal [facility] Comment on above: Result Comment: Elec tronically Signed By: Adam COHN, Edwin Cole\.br\Date and Time Signed: 11/01/24 09:42 EST BMPon 10-30-2024 Anion gap [Moles/Vol] 11 mmol/L Normal 6-16 [facility] Comment on above: Performed By: #### 2 [id number] #### [facility] [address] [place] [address] Calcium [Mass/Vol] 9.0 mg/dL Normal 8.9-11.1 [facility] Comment on above: Performed By: #### 2 [id number] #### [facility] [address] [place] [address] Chloride [Moles/Vol] 96 mmol/L Low 101-111 [facility] Comment on above: Performed By: #### 2 [id number] #### [facility] [address] [place] [address] CO2 [Moles/Vol] 27 mmol/L Normal 21-31 [facility] Comment on above: Performed By: #### 2 [id number] #### [facility] [address] [place] [address] Creatinine [Mass/Vol] 0.9 mg/dL Normal 0.5-1.3 [facility] Comment on above: Performed By: #### 2 [id number] #### [facility] [address] [place] [address] Glucose [Mass/Vol] 87 mg/dL Normal 55-199 [facility] Comment on above: Performed By: #### 2 [id number] #### [facility] [address] [place] [address] Potassium [Moles/Vol] 4.7 mmol/L Normal 3.5-5.3 [facility] Comment on above: Performed By: #### 2 [id number] #### [facility] [address] [place] [address] Sodium [Moles/Vol] 129 mmol/L Low 135-145 [facility] Comment on above: Performed By: #### 2 [id number] #### [facility] [address] [place] [address] Urea nitrogen [Mass/Vol] 15 mg/dL Normal 5-21 [facility] Comment on above: Performed By: #### 2 [id number] #### [facility] [address] [place] [address] Urea nitrogen/Creatinine [Mass ratio] 17 No Units Normal 10-20 [facility] Comment on above: Performed By: #### 2 [id number] #### [facility] [address] [place] [address] CBC w/ Auto Diffon 4 Basophils/100 WBC (Bld) 0.9 % Normal 0.0-2.0 [facility] Comment on above: Performed By: #### 2 [id number] #### [facility] [address] [place] [address] Basophils/Leukocytes Auto (Bld) [Pure # fraction] 0.0 E9/L Normal 0.0-0.2 [facility] Comment on above: Performed By: #### 2 [id number] #### [facility] [address] [place] [address] Eosinophils (Bld) [#/Vol] 0.2 E9/L Normal 0.0-0.5 [facility] Comment on above: Performed By: #### 2 [id number] #### [facility] [address] [place] [address] Eosinophils/100 WBC (Bld) 3.6 % Normal 0.0-8.0 [facility] Comment on above: Performed By: #### 2 [id number] #### [facility] [address] [place] [address] Erythrocyte distribution width (RBC) [Ratio] 13.4 % Normal 10.9-14.2 [facility] Comment on above: Performed By: #### 2 [id number] #### [facility] [address] [place] [address] Hematocrit (Bld) [Volume fraction] 36.3 % Low 37.7-49.0 [facility] Comment on above: Performed By: #### 2 [id number] #### [facility] [address] [place] [address] Hemoglobin (Bld) [Mass/Vol] 12.8 g/dL Low 13.5-17.5 [facility] Comment on above: Performed By: #### 2 [id number] #### [facility] [address] [place] [address] Lymphocytes (Bld) [#/Vol] 1.5 E9/L Normal 1.0-4.0 [facility] Comment on above: Performed By: #### 2 [id number] #### [facility] [address] [place] [address] Lymphocytes/100 WBC (Bld) 30.1 % Normal 14.0-50.0 [facility] Comment on above: Performed By: #### 2 [id number] #### [facility] [address] [place] [address] MCH (RBC) [Entitic mass] 31.7 pg Normal 27.0-34.0 [facility] Comment on above: Performed By: #### 2 [id number] #### [facility] [address] [place] [address] MCHC (RBC) [Mass/Vol] 35.2 g/dL Normal 31.4-36.0 [facility] Comment on above: Performed By: #### 2 [id number] #### [facility] [address] [place] [address] MCV (RBC) [Entitic vol] 90.1 fL Normal 80.0-100.0 [facility] Comment on above: Performed By: #### 2 [id number] #### [facility] [address] [place] [address] Monocytes (Bld) [#/Vol] 0.4 E9/L Normal 0.2-1.0 [facility] Comment on above: Performed By: #### 2 [id number] #### [facility] [address] [place] [address] Neutrophils (Bld) [#/Vol] 2.9 E9/L Normal 2.0-7.5 [facility] Comment on above: Performed By: #### 2 [id number] #### [facility] [address] [place] [address] Neutrophils/100 WBC (Bld) 56.9 % Normal 36.0-75.0 [facility] Comment on above: Performed By: #### 2 [id number] #### [facility] [address] [place] [address] Platelet 175.0 E9/L Normal 150.0-500.0 [facility] Comment on above: Performed By: #### 2 [id number] #### [facility] [address] [place] [address] Platelet mean volume (Bld) [Entitic vol] 9.1 fL Normal 6.4-10.8 [facility] Comment on above: Performed By: #### 2 [id number] #### [facility] [address] [place] [address] RBC (Bld) [#/Vol] 4.0 E12/L Low 4.3-5.9 [facility] Comment on above: Performed By: #### 2 [id number] #### [facility] [address] [place] [address] WBC corrected for nucl RBC Auto (Bld) [#/Vol] 5.1 E9/L Normal 4.0-11.0 [facility] Comment on above: Performed By: #### 2 [id number] #### [facility] [address] [place] [address] CHEMISTRYOrdered By: SYSTEM SYSTEM on 10-30-2024 Anion [...] Chem eGFR 85 mL/min/1.73 m2 Normal >=59mL/min / 1.73 m2 Remisol Chem Glucose [Mass/Vol] 87 mg/dL [...] 4.0 - 11.0 E9/L Remisol Heme eGFRon 12-17-2024 eGFR 85 mL/min/1.73 m2 Normal >=59 [facility] Comment on above: Performed By: #### 1 [id number] #### [facility] [address] [place] [address] Family Medicine Office/Clini c Noteon 09-10-2024 Family [...] Daily, # 90 tab(s), Refills(s) 0, Pharmacy: [facility], 178, cm, 09/10/24 13:01:00 EDT, Height/Length [...] Daily, 1 refills fluticasone Nasal 0.05 mg/inh [place], See Instructions gabapentin 300 mg Cap, 300 [...] Diabetes mellitus (more content not included)... 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 male here [...] E&M of New Patient Low 30-44 Min [address]74[address] 2. ASCVD (arteriosclerotic cardiovascular disease) (I25.10: Atherosclerotic heart disease of kaibab coronary artery without angina pectoris) The patient require surgery he will require cardiac clearance Ordered: E&M of New Patient Low 30-44 Min 53819 3. Longstanding persistent atrial fibrillation (I48.11: Longstanding persistent atrial fibrillation) Should patient require or opt for a robotic repair he will need to hold his anticoagulation for 5 days prior to the procedure Ordered: E&M of New Patient Low 30-44 Min 94[address] Follow-up No qualifying data available Problem List/Past [...] Oral, Daily, 1 refills Flonase 0.05 mg/inh [place], 1 spray(s), Nasal, BID gabapentin 300 mg [...] virus vaccine, inactivated 08/02/2014 Recorded Normal [facility] Comment on above: Result Comment: Elec tronically Signed By: Sam COHN, Davie Lopez.br\Date and Time Signed: 08/28/24 15:02 EDT Ambulatory Visit Summaryon 0 08-07-2024 Ambulatory Visit Summary Ambulatory Visit Summary DARIEL ZABALA :1940 Visit Date:08/07/2024 Ambulatory Visit Instructions Your Care Team Attending Physician - Edwin Garcia MD Primary Care Physician - Edwin Garcia MD This Is Your Medications List Turmeric (Turmeric 500 mg oral capsule) atenolol (atenolol 25 mg Tab) cholecalciferol (D3) cholecalciferol (Vitamin D3 5000 intl units (125 mcg) oral tab) cyanocobalamin (Vitamin B12) finasteride (finasteride 5 mg Tab) fluticasone nasal (Flonase 0.05 mg/inh [place]) gabapentin (gabapentin 300 mg Cap) glimepiride (glimepiride [...] Follow-Up Appointments 2023 9:15 AM EST With: Edwin Garcia MD Where: [address] [address]- Tuesday 1:00 PM EST With: Dixon Dubose PA-C Where: Cardiology Clinic 2024 8:00 AM EDT With: Where: [address] [address]- Medications What How Much When [...] Unchanged fluticasone nasal (Flonase 0.05 mg/ inh [place]) 1 Sprays Nasal Inhalation 2 times a [...] choosing us for your care. Normal [facility] Family Medicine Office/Clini c Noteon 08-07-2024 [...] advised him his appt is 08/13/24 with [facility] at 12:30pm History of Present [...] day(s), # 21 tab(s), Refills(s) 0, Pharmacy: [facility]/pharmacy #[id number], 178, cm, 07/31/24 14:02:00 EDT, [...] Oral, Daily, 1 refills Flonase 0.05 mg/inh [place], 1 spray(s), Nasal, BID gabapentin 300 mg [...] 1 r (more content not included)... Normal [facility] Comment on above: Result Comment: Elec tronically Signed By: Adam COHN, Edwin Cole\.br\Date and Time Signed: 08/07/24 11:41 EDT [...] day(s), # 21 tab(s), Refills(s) 0, Pharmacy: [facility]/pharmacy #[id number], 178, cm, 07/31/24 14:02:00 EDT, Height/Length Dosing, 78.5, kg, 07/31/24 14:02:00 EDT, Weight Dosing tramadol, 50 mg = 1 tab(s), Oral, q4hr, PRN for pain, X 7 day(s), # 21 tab(s), Refills(s) 0, Pharmacy: [facility]/pharmacy #[id number], 178, cm, 07/31/24 14:02:00 EDT, [...] Oral, Daily, 1 refills Flonase 0.05 mg/inh [place], 1 spray(s), Nasal, BID gabapentin 300 mg [...] virus vaccine, inactivated 08/02/2014 Recorded Normal [facility] Comment on above: Result Comment: Elec tronically Signed By: Adam COHN, Edwin Lopez.br\Date and Time Signed: 07/31/24 14:23 EDT Ambulatory Visit Summaryon 0 9-10-2024 Ambulatory Visit Summary Ambulatory Visit Summary DARIEL ZABALA :1940 Visit Date:07/24/2024 Ambulatory Visit Instructions Your Diagnosis BMI 24.0-24.9, adult Nonsmoker Your Care Team Attending Physician - Edwin Garcia MD Primary Care Physician - Edwin Garcia MD This Is Your Medications List Turmeric (Turmeric 500 mg oral capsule) atenolol (atenolol 25 mg Tab) cholecalciferol (D3) cholecalciferol (Vitamin D3 5000 intl units (125 mcg) oral tab) cyanocobalamin (Vitamin B12) finasteride (finasteride 5 mg Tab) fluticasone nasal (Flonase 0.05 mg/inh [place]) gabapentin (gabapentin 300 mg Cap) glimepiride (glimepiride [...] Follow-Up Appointments Tuesday 2:00 PM EDT With: Edwin Garcia MD Where: [address] [id number]- 2023 9:15 AM EST With: Edwin Garcia MD Where: [address] [id number]- Tuesday 1:00 PM EST With: Dixon Dubose PA-C Where: [facility] 2024 8:00 AM EDT With: Where: [place] [address]- Medications What How Much When Instructions Unchanged [...] Unchanged fluticasone nasal (Flonase 0.05 mg/ inh [place]) 1 Sprays Nasal Inhalation 2 times a [...] choosing us for your care. [facility] Office/Clini c Noteon 07-24-2024 Family Medicine Office/Clinic Note Family Medicine Office/Clinic Note HPI Staff Dariel is an 84 year old male presenting for ER follow up ER followup: Hospital: [facility] Visit date: 07/14/24 Symptoms the patient presented [...] patient was under the dosed. Patient stated [place] was helping him more. Patient denies any [...] - Will do Tizanadine - Will do [place] for pain - Follow up in 1 week. - Will send to pain Ordered: [facility] External Ambulatory Referral 2. Inguinal hernia of left side without obstruction or gangrene (K40.90: Unilateral inguinal hernia, without obstruction or gangrene, not specified as recurrent) - Pt cancelled his surgery. - NO pain at this time. - Encouraged follow up Ordered: [facility]ulatory Referral 3. Nonsmoker (Z78.9: Other specified health status) - Please continue to not smoke Ordered: Body Mass Index (BMI) documented 3008F Current tobacco non-user 1036F Depression Screening Negative 3352F [facility] External Ambulatory Referral Most recent diastolic blood [...] q8hr, # 90 tab(s), Refills(s) 1, Pharmacy: [facility]/pharmacy #[id number], 178, cm, 07/24/24 14:57:00 EDT, [...] Oral, Daily, 1 refills Flonase 0.05 mg/inh [place], 1 spray(s), Nasal, BID gabapentin 300 mg Cap, 300 mg= 1 cap(s), Oral, Daily, 1 refills glimepiride 2 mg Tab, 2 mg= 1 tab(s), Oral, Daily, 1 refills Jantoven 5 mg oral tablet, 5 mg= 1 tab(s), Oral, Daily levothyroxine 25 mcg (0.025 mg) Tab, 25 mcg= 1 tab(s), Oral, Daily, 1 refills [place] 325 mg-5 mg oral tablet, 1 tab(s), [...] No. Househol (more content not included)... Normal [facility] Comment on above: Result Comment: Elec tronically Signed By: Edwin Garcia MD\.br\Date and Time Signed: 07/24/24 15:24 EDT Ambulatory Visit Summaryon 0 07-03-2024 Ambulatory Visit Summary Ambulatory Visit Summary DARIEL ZABALA :1940 Visit Date:07/03/2024 Ambulatory Visit Instructions Your Diagnosis Serous otitis media Carpal tunnel syndrome, left Erectile dysfunction due to arterial insufficiency Hard of hearing Inguinal hernia of left side without obstruction or gangrene Your Care Team Attending Physician - Edwin Garcia MD Primary Care Physician - Edwin Garcia MD This Is Your Medications List [...] Follow-Up Appointments 2023 9:15 AM EST With: Edwin Garcia MD Where: [address] [id number]- Tuesday 1:00 PM EST With: Dixon Dubose PA-C Where: [facility] 2024 8:00 AM EDT With: Where: [address] [id number]- Medications What How Much When Instructions Unchanged [...] choosing us for your care. [facility]/Clini c Noteon 07-03-2024 [...] BID, 16 gram, Refill(s) 0, each nostril, [facility]/pharmacy #[id number], 178, cm, 07/03/24 10:05:00 EDT, Height/Length Dosing, 80.8, kg, 07/03/24 10:05:00 EDT, Weight Dosing gabapentin, 300 mg = 1 cap(s), Oral, Daily, # 90 cap(s), Refills(s) 1, Pharmacy: [facility], 178, cm, 07/03/24 10:05:00 EDT, Height/Length Dosing, 80.8, kg, 07/03/24 10:05:00 EDT, Weight Dosing omeprazole, 40 mg = 1 cap(s), Oral, Daily, # 90 cap(s), Refills(s) 0, Pharmacy: [facility], 178.2, cm, 02/02/24 10:29:00 EDT, Height/Length Dosing, 84.1, kg, 02/02/24 10:29:00 EDT, Weight Dosing sildenafil, 100 mg = 1 tab(s), Oral, Daily, PRN for erectile dysfunction, 1 hour before sexual activity, # 5 tab(s), Refills(s) 0, Pharmacy: [facility], 178, cm, 07/03/24 10:05:00 EDT, Height/Length Dosing, 80.8, kg, 07/03/24 10:05:00 EDT,... 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 Normal [facility] Comment on above: Result Comment: Elec tronically Signed By: Adam COHN, Edwin Cole\.claudio\Date and Time Signed: 07/03/24 10:27 EDT Heart [...] influenza virus vaccine, inactivated 08/02/2014 Recorded Normal [facility] Comment on above: Result Comment: Elec tronically Signed By: Ericka COHN, Kashif Craig\.br\Date and Time Signed: 06/11/24 13:14 EDT CBC w/ Auto Diffon 4 Basophils/100 WBC (Bld) 0.9 % Normal 0.0-2.0 [facility] Comment on above: Performed By: #### 2 [id number] #### [facility] [address] [place] [address] Basophils/Leukocytes Auto (Bld) [Pure # fraction] 0.0 E9/L Normal 0.0-0.2 [facility] Comment on above: Performed By: #### 2 [id number] #### [facility] [address] [place] [address] Eosinophils (Bld) [#/Vol] 0.1 E9/L Normal 0.0-0.5 [facility] Comment on above: Performed By: #### 2 [id number] #### [facility] [address] [place] [address] Eosinophils/100 WBC (Bld) 2.4 % Normal 0.0-8.0 [facility] Comment on above: Performed By: #### 2 [id number] #### [facility] [address] [place] [address] Erythrocyte distribution width (RBC) [Ratio] 14.4 % High 10.9-14.2 [facility] Comment on above: Performed By: #### 2 [id number] #### [facility] [address] [place] [address] Hematocrit (Bld) [Volume fraction] 42.2 % Normal 37.7-49.0 [facility] Comment on above: Performed By: #### 2 [id number] #### [facility] [address] [place] [address] Hemoglobin (Bld) [Mass/Vol] 14.0 g/dL Normal 13.5-17.5 [facility] Comment on above: Performed By: #### 2 [id number] #### [facility] [address] [place] [address] Lymphocytes (Bld) [#/Vol] 1.4 E9/L Normal 1.0-4.0 [facility] Comment on above: Performed By: #### 2 649072 #### [facility] [address] [place] [address] Lymphocytes/100 WBC (Bld) 34.0 % Normal 14.0-50.0 [facility] Comment on above: Performed By: #### 2 [id number] #### [facility] [address] [place] [address] MCH (RBC) [Entitic mass] 30.8 pg Normal 27.0-34.0 [facility] Comment on above: Performed By: #### 2 114001 #### [facility] [address] [place] [address] MCHC (RBC) [Mass/Vol] 33.1 g/dL Normal 31.4-36.0 [facility] Comment on above: Performed By: #### 2 [id number] #### [facility] [address] [place] [address] MCV (RBC) [Entitic vol] 92.9 fL Normal 80.0-100.0 [facility] Comment on above: Performed By: #### 2 230714 #### [facility] [address] [place] [address] Monocytes (Bld) [#/Vol] 0.4 E9/L Normal 0.2-1.0 [facility] Comment on above: Performed By: #### 2 209252 #### [facility] [address] [place] [address] Neutrophils (Bld) [#/Vol] 2.2 E9/L Normal 2.0-7.5 [facility] Comment on above: Performed By: #### 2 924303 #### [facility] [address] [place] [address] Neutrophils/100 WBC (Bld) 53.4 % Normal 36.0-75.0 [facility] Comment on above: Performed By: #### 2 674558 #### [facility] [address] [place] [address] Platelet 166.0 E9/L Normal 150.0-500.0 [facility] Comment on above: Performed By: #### 2 390442 #### [facility] [address] [place] [address] Platelet mean volume (Bld) [Entitic vol] 9.8 fL Normal 6.4-10.8 [facility] Comment on above: Performed By: #### 2 846645 #### [facility] [address] [place] [address] RBC (Bld) [#/Vol] 4.5 E12/L Normal 4.3-5.9 [facility] Comment on above: Performed By: #### 2 829678 #### [facility] [address] [place] [address] WBC corrected for nucl RBC Auto (Bld) [#/Vol] 4.2 E9/L Normal 4.0-11.0 [facility] Comment on above: Performed By: #### 2 [id number] #### [facility] [address] [place] [address] CHEMISTRYOrdered By: SYSTEM SYSTEM on 05-01-2024 Albumin [...] Chem eGFR 67 mL/min/1.73 m2 Normal >=59mL/min / 1.73 m2 Remisol Chem Globulin (S) [Mass/Vol] 2.9 [...] for this result was chemiluminescence using [employer]'s Access Hybritech PSA reagent. Protein [Mass/Vol] 7.1 [...] 05-01-2024 Albumin [Mass/Vol] 4.2 g/dL Normal 3.3-5.0 [facility] Comment on above: Performed By: #### 2 [id number] #### [facility] [address] [place] [address] Albumin/Globulin (S) [Mass conc ratio] 1.4 Normal 1.1-2.2 [facility] Comment on above: Performed By: #### 2 884416 #### [facility] [address] [place] [address] ALP [Catalytic activity/Vol] 83 Int._Unit/L Normal 21-98 [facility] Comment on above: Performed By: #### 2 771492 #### [facility] [address] [place] [address] ALT No additional P-5'-P [Catalytic activity/Vol] 14 Int._Unit/L Normal 6-46 [facility] Comment on above: Performed By: #### 2 738008 #### [facility] [address] [place] [address] Anion gap [Moles/Vol] 10 mmol/L Normal 6-16 [facility] Comment on above: Performed By: #### 2 056048 #### [facility] [address] [place] [address] AST [Catalytic activity/Vol] 22 Int._Unit/L Normal 5-43 [facility] Comment on above: Performed By: #### 2 549846 #### [facility] [address] [place] [address] Bilirubin [Mass/Vol] 0.9 mg/dL Normal 0.0-1.1 [facility] Comment on above: Performed By: #### 2 802746 #### [facility] [address] [place] [address] Calcium [Mass/Vol] 9.5 mg/dL Normal 8.9-11.1 [facility] Comment on above: Performed By: #### 2 154122 #### [facility] [address] [place] [address] Chloride [Moles/Vol] 103 mmol/L Normal 101-111 [facility] Comment on above: Performed By: #### 2 115188 #### [facility] [address] [place] [address] CO2 [Moles/Vol] 29 mmol/L Normal 21-31 [facility] Comment on above: Performed By: #### 2 045847 #### [facility] [address] [place] [address] Creatinine [Mass/Vol] 1.1 mg/dL Normal 0.5-1.3 [facility] Comment on above: Performed By: #### 2 887430 #### [facility] [address] [place] [address] Globulin (S) [Mass/Vol] 2.9 g/dL Normal 1.4-4.0 [facility] Comment on above: Performed By: #### 2 537556 #### [facility] [address] [place] [address] Glucose [Mass/Vol] 104 mg/dL Normal 55-199 [facility] Comment on above: Performed By: #### 2 283295 #### [facility] [address] [place] [address] Potassium [Moles/Vol] 5.2 mmol/L Normal 3.5-5.3 [facility] Comment on above: Performed By: #### 2 294422 #### [facility] [address] [place] [address] Protein [Mass/Vol] 7.1 g/dL Normal 6.0-7.8 [facility] Comment on above: Performed By: #### 2 507425 #### [facility] [address] [place] [address] Sodium [Moles/Vol] 137 mmol/L Normal 135-145 [facility] Comment on above: Performed By: #### 2 945983 #### [facility] [address] [place] [address] Urea nitrogen [Mass/Vol] 15 mg/dL Normal 5-21 [facility] Comment on above: Performed By: #### 2 563877 #### [facility] [address] [place] [address] Urea nitrogen/Creatinine [Mass ratio] 14 No Units Normal 10-20 [facility] Comment on above: Performed By: #### 2 390539 #### [facility] [address] [place] [address] HEMATOLOGYOrdered By: SYSTEM SYSTEM on 05-01-2024 Basophils/100 [...] 05-01-2024 Cholesterol [Mass/Vol] 168 mg/dL Normal 120-200 [facility] Comment on above: Performed By: #### 2 490793 #### [facility] [address] [place] [address] Cholesterol in HDL [Mass/Vol] 54 mg/dL Invalid Interpretation Code [facility] Comment on above: Result Comment: '>= 60 LOW RISK' '<= 40 HIGH RISK' Performed By: #### 2 069787 #### [facility] [address] [place] [address] Cholesterol in LDL [Mass/Vol] 99 mg/dL Normal <=129 [facility] Comment on above: Performed By: #### 2 221190 #### [facility] [address] [place] [address] Cholesterol in VLDL [Mass/Vol] 16 mg/dL Normal 7-40 [facility] Comment on above: Performed By: #### 2 050038 #### [facility] [address] [place] [address] Triglyceride [Mass/Vol] 78 mg/dL Normal <=149 [facility] Comment on above: Performed By: #### 2 499832 #### [facility] [address] [place] [address] PSA Screen, Totalon 05-01-20 24 Prostate specific Ag [Mass/Vol] 1.3 ng/mL Normal 0.1-3.5 [facility] Comment on above: Result Comment: The concentration of PSA determined by different manufacturers can vary due to differences in assay methods and reagent specificity. Values obtained from different assay methods cannot be used interchangeably. The methodology used for this result was chemiluminescence using [employer]'s Access Hybritech PSA reagent. Performed By: #### 1 [id number] #### [facility] [address] [place] [address] CHEMISTRYOrdered By: Sara RIVAS User on 03-26-2024 Glucose [Mass/Vol] 92 mg/dL Normal 55 - 99 mg/dL [facility] POC Subsection Comment on above: Result Comment: Justine garcia RN/ POC Device SN [id number] 1 Invalid Interpretation Code [facility] POC Subsection POC User ID [id number] 1 Invalid Interpretation Code [facility] POC Subsection POC Username LORNA WILSON Invalid Interpretation Code [facility] POC Subsection COAGULATIONOrdered By: Toshia Tadeo on 03-26-2024 aPTT Coag (PPP) [Time] 35.8 s Normal 25.1 - 36.5 second(s) [facility] Auto Coag Comment on above: Interpretive Data: Rashel isbell 15 days - 4 weeks 1 - [...] the same coagulation reagent and instrumentation as [facility]. Currently there are no coagulation studies available worldwide for children to 14 days, and no normal ranges. Heparin therapeutic range (represented by Anti-Factor Xa activity of 0.2 - 0.4 U/mL) corresponds to PTT of 56.6 - 109.0 sec. INR Coag (PPP) [Relative time] 1.19 {INR} Invalid Interpretation Code [facility] Auto Coag Comment on above: Interpretive Data: I NR results are specifically intended to assess patients stabilized on long-term Anticoagulation therapy suggested INR s Less Intensive Anticoagulation 2.0 3.0 Conventional Range 3.0 4.5 PT Coag (PPP) [Time] 13.4 s High 9.4 - 1 2.5 second(s) [facility] Auto Coag Comment on above: Interpretive Data: [...] the same coagulation reagent and instrumentation as [facility]. Currently there are no coagulation studies available [...] Chem eGFR 75 mL/min/1.73 m2 Normal >=59mL/min / 1.73 m2 Remisol Chem Glucose [Mass/Vol] 98 mg/dL [...] Chem eGFR 67 mL/min/1.73 m2 Normal >=59mL/min / 1.73 m2 Remisol Chem Globulin (S) [Mass/Vol] 2.5 [...] (Bld) [Mass fraction] 5.6 % Normal <=5.9% [facility] ChemAutoSS HEMATOLOGYOrdered By: SYSTEM SYSTEM on 12-01-2023 [...] Normal 80.0 - 100.0 fL Remisol Heme [place] Absolute 0.5 E9/L Normal 0.2 - 1.0 [...] Anion gap [Moles/Vol] 8.1 mmol/L Normal 6.0-15.0 [facility] Comment on above: Order Comment: Reaso n for Exam Hyponatremia Performed By: #### C BC, BMP #### [facility] [address] [id number] [place] Calcium [Mass/Vol] 9.3 mg/dL Normal 8.6-10.3 [facility] Comment on above: Order Comment: Reaso n for Exam Hyponatremia Result Comment: PERF ORMED BY: [place] [address] PATHOLOGIST [employer] FORMER DANNY NEAL M.D. Performed By: #### C BC, BMP #### [facility] [address] [place] [address] [place] Chloride [Moles/Vol] 102 mmol/L Normal 98-107 [employer] Other Comment on above: Order Comment: Reaso n for Exam Hyponatremia Performed By: #### C BC, BMP #### [facility] [address] [place] [address] [place] CO2 [Moles/Vol] 32.4 mmol/L High 21.0-31.0 [facility] Comment on above: Order Comment: Reaso n for Exam Hyponatremia Performed By: #### C BC, BMP #### [facility] [address] [place] [address] [place] Creatinine [Mass/Vol] 1.07 mg/dL Normal 0.70-1.30 [facility] Comment on above: Order Comment: Reaso n for Exam Hyponatremia Performed By: #### C BC, BMP #### [facility] [address] [place] [address] [place] GFR/1.73 sq M.predicted MDRD (S/P/Bld) [Vol rate/Area] mL/min/{1.73_m2} Normal [employer] Other Comment on above: Order Comment: Reaso n for Exam Hyponatremia Performed By: #### C BC, BMP #### [facility] [address] [id number] [place] Glucose [Mass/Vol] 93 mg/dL Normal 70-100 [employer] Other Comment on above: Order Comment: Reaso n for Exam Hyponatremia Result Comment: [facility][note 3] Glucose Reference Range is dependent on time and content of last meal. Glucose of more than 200 mg/dL in a nonstressed, ambulatory subject supports the diagnosis of Diabetes Mellitus. ADA recommended reference range Performed By: #### C BC, BMP #### [facility] [address] [id number] [place] Potassium [Moles/Vol] 4.5 mmol/L Normal 3.5-5.1 [facility] Comment on above: Order Comment: Reaso n for Exam Hyponatremia Performed By: #### C BC, BMP #### [facility] [address] [place] [address] [place] Sodium [Moles/Vol] 138 mmol/L Normal 136-145 [employer] Other Comment on above: Order Comment: Reaso n for Exam Hyponatremia Performed By: #### C BC, BMP #### [facility] [address] [place] [address] [place] Urea nitrogen [Mass/Vol] 13 mg/dL Normal 7-25 [employer] Other Comment on above: Order Comment: Reaso n for Exam Hyponatremia Performed By: #### C CECILIA, BMP #### [facility] [address] Calcium [Mass/Vol] 9.1041660 mg/dL Normal 8.6-10 .3 mg/dL [facility] [employer] Other CO2 [Moles/Vol] 32.52323435 mmol/L High 21.0-3 1.0 mmol/L [facility] [employer] Other Creatinine [Mass/Vol] 1.06159579 mg/dL Normal 0. 70-1.30 mg/dL [facility] [employer] Other Potassium [Moles/Vol] 4.57017805 mmol/L Normal 3 .5-5.1 mmol/L [facility] [employer] Other Complete Blood Count Auto Di ffon 11-02-2023 Basophils (Bld) [#/Vol] 0.1 10*3/uL Normal 0.0-0.2 [facility] Comment on above: Order Comment: Reaso n for Exam Atrial fibrillation Result Comment: PERF ORMED BY: [place] [address] PATHOLOGIST [employer] FORMER DANNY NEAL M.D. Performed By: #### C CECILIA, BMP #### [facility] [address] [place] [address] [place] Basophils/100 WBC (Bld) 1.0 % Normal . [facility] Comment on above: Order Comment: Reaso n for Exam Atrial fibrillation Performed By: #### C CECILIA, BMP #### [facility] [address] [place] [address] [place] Eosinophils (Bld) [#/Vol] 0.1 10*3/uL Normal 0.0-0.45 [facility] Comment on above: Order Comment: Reaso n for Exam Atrial fibrillation Performed By: #### C CECILIA, BMP #### [facility] [address] [place] [address] [place] Eosinophils/100 WBC (Bld) 2.1 % Normal . [facility] Comment on above: Order Comment: Reaso n for Exam Atrial fibrillation Performed By: #### C BC, BMP #### [address] Erythrocyte distribution width (RBC) [Ratio] 14.0 % Normal 12.0-14.8 [facility] Comment on above: Order Comment: Reaso n for Exam Atrial fibrillation Performed By: #### C BC, BMP #### [address] Hematocrit (Bld) [Volume fraction] 38.8 % Normal 38.8-50.0 [facility] Comment on above: Order Comment: Reaso n for Exam Atrial fibrillation Performed By: #### C BC, BMP #### [address] Hemoglobin (Bld) [Mass/Vol] 13.2 g/dL Normal 13.0-17.0 [facility] Comment on above: Order Comment: Reaso n for Exam Atrial fibrillation Performed By: #### C BC, BMP #### [address] Lymphocytes (Bld) [#/Vol] 1.3 10*3/uL Normal 1.00-4.8 [facility] Comment on above: Order Comment: Reaso n for Exam Atrial fibrillation Performed By: #### C BC, BMP #### [place] [address] [place] Lymphocytes/100 WBC (Bld) 21.8 % Normal . [facility] Comment on above: Order Comment: Reaso n for Exam Atrial fibrillation Performed By: #### C BC, BMP #### [address] MCH (RBC) [Entitic mass] 31.5 pg Normal 27.5-35.2 [facility] Comment on above: Order Comment: Reaso n for Exam Atrial fibrillation Performed By: #### C BC, BMP #### [address] MCV (RBC) [Entitic vol] 92.7 fL Normal 83.5-101 [facility] Comment on above: Order Comment: Reaso n for Exam Atrial fibrillation Performed By: #### C BC, BMP #### [facility] [address] Mean Corpuscular HGB Conc 34.0 g/dL Normal 32.5-35.6 [facility] Comment on above: Order Comment: Reaso n for Exam Atrial fibrillation Performed By: #### C BC, BMP #### [facility] [address] Monocytes (Bld) [#/Vol] 0.5 10*3/uL Normal 0.0-0.8 [facility] Comment on above: Order Comment: Reaso n for Exam Atrial fibrillation Performed By: #### C BC, BMP #### [facility] [address] Monocytes/100 WBC (Bld) 8.5 % Normal . [facility] Comment on above: Order Comment: Reaso n for Exam Atrial fibrillation Performed By: #### C BC, BMP #### [facility] [address] [place] [address] [place] Neutrophils (Bld) [#/Vol] 4.0 10*3/uL Normal 1.8-7.7 [facility] Comment on above: Order Comment: Reaso n for Exam Atrial fibrillation Performed By: #### C BC, BMP #### [facility] [address] [place] [address] [place] Neutrophils/100 WBC (Bld) 66.6 % Normal . [facility] Comment on above: Order Comment: Reaso n for Exam Atrial fibrillation Performed By: #### C BC, BMP #### [facility] [address] [place] [address] [place] NRBC% 0.1 /100{WBC} Normal 0-0.5 [facility] Comment on above: Order Comment: Reaso n for Exam Atrial fibrillation Performed By: #### C BC, BMP #### [facility] [address] [place] [address] [place] Platelet mean volume (Bld) [Entitic vol] 9.4 fL Normal 6.6-10.1 [facility] Comment on above: Order Comment: Reaso n for Exam Atrial fibrillation Performed By: #### C BC, BMP #### [facility] [address] Platelets (Bld) [#/Vol] 153 10*3/uL Normal 150-450 [employer] Other Comment on above: Order Comment: Reaso n for Exam Atrial fibrillation Performed By: #### C BC, BMP #### [facility] [address] RBC (Bld) [#/Vol] 4.19 10*6/uL Normal 3.90-5.60 [employer] Other Comment on above: Order Comment: Reaso n for Exam Atrial fibrillation Performed By: #### C BC, BMP #### [facility] [address] [place] [address] [place] WBC (Bld) [#/Vol] 6.1 10*3/uL Normal 4.1-10.5 [facility] Comment on above: Order Comment: Reaso n for Exam Atrial fibrillation Performed By: #### C CECILIA, BMP #### [facility] [address] Basophils (Bld) [#/Vol] [id number] 10*3/uL Normal 0.0-0.2 10*3/uL [employer] Other Basophils/100 WBC (Bld) 1.000 % . % [employer] Other Eosinophils (Bld) [#/Vol] 0.987666254 10*3/uL Normal 0.0-0.45 10*3/uL [employer] Other Eosinophils/100 WBC (Bld) 2.100 % . % [employer] Other Erythrocyte distribution width (RBC) [Ratio] 14.000 % Normal 12.0-14.8 % [employer] Other Hematocrit (Bld) [Volume fraction] 38.800 % Normal 38.8-50.0 % [employer] Other Hemoglobin (Bld) [Mass/Vol] 13.089093 g/dL Normal 13.0-17.0 g/dL [employer] Other Lymphocytes (Bld) [#/Vol] 1.486695434 10*3/uL Normal 1.00-4.8 10*3/uL [employer] Other Lymphocytes/100 WBC (Bld) 21.800 % . % [employer] Other MCH (RBC) [Entitic mass] 31.5000 pg Normal 27.5-35.2 pg [employer] Other MCV (RBC) [Entitic vol] 92.7000 fL Normal 83.5-101 fL [employer] Other Monocytes (Bld) [#/Vol] 0.280808576 10*3/uL Normal 0.0-0.8 10*3/uL [employer] Other Monocytes/100 WBC (Bld) 8.500 % . % [employer] Other Neutrophils (Bld) [#/Vol] 4.205325601 10*3/uL Normal 1.8-7.7 10*3/uL [employer] Other Neutrophils/100 WBC (Bld) 66.600 % . % [employer] Other Platelet mean volume (Bld) [Entitic vol] 9.4000 fL Normal 6.6-10.1 fL [employer] Other WBC (Bld) [#/Vol] 6.457518861 10*3/uL Normal 4.1 -10.5 10*3/uL [employer] Other Complete Blood Count Auto Diff 6.1 10*3/uL Normal 4.1-10.5 10*3/uL [employer] Other Complete Blood Count Auto Diff 34.0 g/dL Normal 32.5-35.6 g/dL [employer] Other Complete Blood Count Auto Diff 0.1 /100{WBC} Normal 0-0.5 /100{WBC} [employer] Other PSA Screen (Yearly Only)on 01-03-2023 PSA Screen (Yearly Only) 1.940 ng/mL Normal 0.000-4.000 [facility] Comment on above: Order Comment: Reaso n for Exam Prostate cancer screening Result Comment: Seri al tumor marker results determined by assays using different manufacturers or methods may not be comparable. [facility] labor relations specialist and method: [employer] DXI, CHEMILUMINESCENT IMMUNOASSAY. PERFORMED BY: [place] [address] PATHOLOGIST [employer] FORMER DANNY NEAL M.D. Performed By: #### P SAS #### [facility] [address] [place] [id number] [facility] Prothrombin Time INRon 06-16 INR Coag (PPP) [Relative time] 2.4 {INR} Normal [employer] Other Comment on above: Result Comment: INR [...] heart valves: 3 - 4.5 PERFORMED BY: [address] [place] [address] PATHOLOGIST [employer] FORMER DANNY NEAL M.D. Performed By: #### P T #### [facility] [address] [place] [id number] [facility] PT Coag (PPP) [Time] 27.8 s High 9.0-12.9 [facility] Comment on above: Performed By: #### P T #### [facility] [address] [place] [id number] [facility] PT Coag (PPP) [Time] 27.800 s High 9.0-12.9 s [facility] [employer] Other Coding Summaryon 05-12-2020 Coding Summary CODING DATE: 05/12/2020 [facility] STATUS: Home PAYOR: Medicare ADMIT DX: [...] Horan Date Saved: 05/12/2020 02:18 pm Normal [facility] ED Clinical Summaryon 2019 ED Clinical Summary [facility] ? Urgent Care [address] [place] [address] Clinical Summary PERSON INFORMATION Name: DARIEL ZABALA Age: 80 Years Sex: MALE : 1940 MRN: Acct#: Visit Reason: UC - Ear Problem; BILAT EAR PROBLEM Arrival: 05/08/2020 09:32:00 Discharge: 05/08/2020 10:15:00 LOS: 000 00:43 Check In: 05/08/2020 09:32:00 Checkout: 05/08/2020 10:15:00 Address: [address] [place] [id number] PCP: Provider, Unlisted PROVIDER INFORMATION Provider Role [...] Earwax Buildup, Adult Follow-Up: With: Address: When: [facility], [address] [place] [id number] Business (1) Comments: Please follow-up with your Doctor or Dr. Arellano Medical Doctor contracts manager, call their offices and make ointment to be seen in 3 days or sooner for continued care, please purchase sfgh-cul-vdgdkxf Debrox which helps breakdown earwax, take all your medications as previously prescribed, drink plenty of water for hydration, and return back to urgent care center for any worsening symptoms, concerns, or complications. DIAGNOSIS: 1:Impacted cerumen of both ears Patient Understands: Yes - Patient/family/careg iver verbalizes understanding of instructions given Comment: Normal [facility] ED Patient Summaryon 020 ED Patient Summary [facility] ? Urgent Care [address] [place] [id number] PATIENT DISCHARGE INSTRUCTIONS Patient Information Name: DARIEL ZABALA Age: 80 Years Date of : 1940 Reason For Visit: UC - Ear Problem; BILAT EAR PROBLEM Arrival Time: 05/08/2020 09:32:00 Primary Care Physician: Provider, Unlisted Attending Physician: Larry Billingsley PA-C Comment: Patient Education With: Address: When: [facility], [address] [place] [id number] Business (1) Comments: Please follow-up with your Doctor or Dr. Arellano Medical Doctor contracts manager, call their offices and make ointment to be seen in 3 days or sooner for continued care, please purchase xbvd-umd-ruielkw Debrox which helps breakdown earwax, take all [...] Follow these instructions at home: ? Take vvhn-blj-xiybuss and prescription medicines only as told by [...] clean them according to instructions from the labor relations specialist and your health care provider. Contact [...] 12/08/2005 Document Revised: 10/12/2018 Document Reviewed: 01/11/2018 [employer] Patient Education ? 2019 [employer] Medication Information: The exam and treatment you received today in the [facility] Emergency Department were for an urgent problem and are not intended as complete care. It is important for you to follow up with a doctor, nurse practitioner, or physician?s assistant manager retail for ongoing care. If your symptoms become [...] so we can reach you if necessary. [facility] Emergency Department has provided you with a complete list of medications post discharge. Please inform your care director rn/provider of your visit and for further instruction [...] both ears (H61.23) UC - Ear Problem ([id number]) If you received any narcotics, sedation, or [...] Control and Prevention July 2014 [facility] Patient Handouton 05-08-2020 Patient Handout Patient [...] Follow these instructions at home: ? Take aiio-oum-xugntkk and prescription medicines only as told by [...] clean them according to instructions from the labor relations specialist and your health care provider. Contact [...] 12/08/2005 Document Revised: 10/12/2018 Document Reviewed: 01/11/2018 [employer] Interactive Patient Education ? 2019 [employer] Normal [facility] 020 Urgent Care Record [facility] ? Urgent Care [address] [place] [address] PATIENT DISCHARGE INSTRUCTIONS Patient Information Name: DARIEL ZABALA Age: 80 Years Date of : 1940 Reason For Visit: UC - Ear Problem; BILAT EAR PROBLEM Arrival Time: 05/08/2020 09:32:00 Primary Care Physician: Provider, Unlisted Attending Physician: Larry Billingsley PA-C Comment: Visit Diagnosis: Diagnoses This Visit Impacted cerumen of both ears (H61.23) UC - Ear Problem ([id number]) If you received any narcotics, sedation, or [...] legal documents With: Address: When: Andrés Arellano [facility], [address] [place] [address] [phone] Business (1) Comments: Please follow-up with your Doctor or Dr. Arellano, Medical Doctor contracts manager, call their offices and make ointment to be seen in 3 days or sooner for continued care, please purchase aadg-rjc-kmnawgy Debrox which helps breakdown earwax, take all [...] a doctor, nurse practitioner, or physician?s assistant manager retail for ongoing care. If your symptoms become [...] so we can reach you if necessary. [facility] has provided you with a complete list of medications post discharge. Please inform your care director rn/provider of your visit and for further instruction [...] Follow these instructions at home: ? Take tjzj-fbx-gshtzjz and prescription medicines only as told by [...] clean them according to instructions from the labor relations specialist and your health care provider. Contact [...] 12/08/2005 Document Revised: 10/12/2018 Document Reviewed: 01/11/2018 [employer] Patient Education ? 2019 [employer] Viruses or Bacteria What?s got you [...] Disease Control and Prevention July 2014 Normal [facility] Vital Signs Date Time Vital Sign Value Performing Clinician Facility 06-23-2025 11:50-0400 Body temperature 97.7 [degF] Erika Crisostomo MD Work Phone: [facility] 06-23-2025 11:50-0400 Diastolic blood pressure 63 mm[Hg] Erika Crisostomo MD Work Phone: [facility] 06-23-2025 11:50-0400 Heart rate 67 /min Erika Crisostomo MD Work Phone: [facility] 06-23-2025 11:50-0400 Respiratory rate 16 /min Erika Crisostomo MD Work Phone: [facility] 06-23-2025 11:50-0400 SaO2% (BldA) [Mass fraction] 99 % Erika Crisostomo MD Work Phone: [facility] 06-23-2025 11:50-0400 Systolic blood pressure 114 mm[Hg] Erika Crisostomo MD Work Phone: [facility] 06-23-2025 04:38-0400 Body mass index (BMI) [Ratio] 22.65 kg/m2 Erika Crisostomo MD Work Phone: [facility] 06-23-2025 04:38-0400 Body weight 71.6 kg Erika Crisostomo MD Work Phone: [facility] 06-19-2025 12:37-0400 Body height 177.8 cm Erika Crisostomo MD Work Phone: [facility] 06-05-2025 15:00-0400 Diastolic blood pressure 47 mm[Hg] Axel Monet DO Work Phone: [employer] 06-05-2025 15:00-0400 Heart rate 71 /min Axel Monet DO Work Phone: [facility] 06-05-2025 15:00-0400 Respiratory rate 15 /min Axel Monet DO Work Phone: [facility] 06-05-2025 15:00-0400 Systolic blood pressure 110 mm[Hg] Axel Monet DO Work Phone: [facility] 06-05-2025 13:00-0400 Body temperature 97.7 [degF] Axel Monet DO Work Phone: [facility] 06-05-2025 06:30-0400 SaO2% (BldA) [Mass fraction] 100 % Axel Monet DO Work Phone: [facility] 06-05-2025 04:00-0400 Body mass index (BMI) [Ratio] 26.48 kg/m2 Axel Monet DO Work Phone: [facility] 06-05-2025 04:00-0400 Body weight 83.7 kg Axel Monet DO Work Phone: [facility] 06-02-2025 10:06-0400 Body height 177.8 cm Axel Monet DO Work Phone: [facility] 11-26-2024 10:27-0500 Body mass index (BMI) [Ratio] 24.74 kg/m2 Emiliano Escamilla MD Work Phone: [facility] 11-26-2024 10:27-0500 Body weight 77.11 kg Emiliano Escamilla MD Work Phone: [facility] 11-26-2024 10:27-0500 Diastolic blood pressure 73 mm[Hg] Emiliano Escamilla MD Work Phone: [facility] 11-26-2024 10:27-0500 Heart rate 87 /min Emiliano Escamilla MD Work Phone: [facility] 11-26-2024 10:27-0500 Systolic blood pressure 148 mm[Hg] Emiliano Escamilla MD Work Phone: [facility] 11-19-2024 14:27-0500 Diastolic blood pressure 82 mm[Hg] Axel Hernández [facility] 11-19-2024 14:27-0500 Heart rate 66 /min Axel Hernández [facility] 11-19-2024 14:27-0500 Mean blood pressure 103 mm[Hg] Axel Catherine [facility] 11-19-2024 14:27-0500 Respiratory rate 18 /min Axel Catherine [facility] 11-19-2024 14:27-0500 SaO2% (BldA) [Mass fraction] 95 % Axel Hernández [facility] 11-19-2024 14:27-0500 Systolic blood pressure 144 mm[Hg] Axel Hernández [facility] 11-19-2024 13:23-0500 Blood Pressure Location Axel Catherine [facility] 11-19-2024 13:23-0500 Body temperature 96.8 [degF] Axel Catherine [facility] 11-19-2024 13:23-0500 Diastolic blood pressure 69 mm[Hg] Axel Catherine [facility] 11-19-2024 13:23-0500 Heart rate 63 /min Axel Catherine [facility] 11-19-2024 13:23-0500 Mean blood pressure 92 mm[Hg] Axel Catherine [facility] 11-19-2024 13:23-0500 Respiratory rate 20 /min Axel Catherine [facility] 11-19-2024 13:23-0500 SaO2% (BldA) [Mass fraction] 99 % Axel Hernández [facility] 11-19-2024 13:23-0500 Systolic blood pressure 139 mm[Hg] Axel Hernández [facility] 11-19-2024 13:05-0500 Body temperature 97.34 [degF] Axel Catherine [facility] 11-19-2024 13:05-0500 Diastolic blood pressure 69 mm[Hg] Axel Catherine [facility] 11-19-2024 13:05-0500 Heart rate 65 /min Axel Catherine [facility] 11-19-2024 13:05-0500 Mean blood pressure 87 mm[Hg] Axel Catherine [facility] 11-19-2024 13:05-0500 Respiratory rate 16 /min Axel Catherine [facility] 11-19-2024 13:05-0500 SaO2% (BldA) [Mass fraction] 97 % Axel Catherine [facility] 11-19-2024 13:05-0500 Systolic blood pressure 122 mm[Hg] Axel Catherine [facility] 11-19-2024 12:40-0500 Body temperature 97.7 [degF] Axel Catherine [facility] 11-19-2024 12:35-0500 Respiratory rate 12 /min Axel Catherine [facility] 11-19-2024 12:30-0500 Body temperature 96.8 [degF] Axel Hernández [facility] 11-19-2024 12:30-0500 Respiratory rate 13 /min Axel Catherine [facility] 11-19-2024 12:25-0500 Body temperature 96.8 [degF] Axel Hernández [facility] 11-19-2024 12:25-0500 Respiratory rate 15 /min Axel Catherine [facility] 11-19-2024 12:20-0500 Body temperature 96.8 [degF] Axel Hernández [facility] 11-19-2024 09:55-0500 Mean blood pressure 85 mm[Hg] Axel Catherine [facility] 11-19-2024 09:52-0500 Mean blood pressure 79 mm[Hg] Axel Catherine [facility] 10-30-2024 10:36-0500 Diastolic blood pressure 67 mm[Hg] Axel Hernández [facility] 10-30-2024 10:36-0500 Heart rate 57 /min Axel Catherine [facility] 10-30-2024 10:36-0500 Mean blood pressure 86 mm[Hg] Axel Catherine [facility] 10-30-2024 10:36-0500 Systolic blood pressure 124 mm[Hg] Axel Catherine [facility] 10-30-2024 10:34-0500 Heart rate 56 /min Axel Catherine [facility] 10-30-2024 10:34-0500 SaO2% (BldA) [Mass fraction] 100 % Axel Catherine [facility] 10-30-2024 10:34-0500 Diastolic blood pressure 83 mm[Hg] Axel Hernández [facility] 10-30-2024 10:34-0500 Mean blood pressure 105 mm[Hg] Axel Hernández [facility] 10-30-2024 10:34-0500 Systolic blood pressure 148 mm[Hg] Axel Hernández [facility] 10-03-2024 10:58-0500 Body height 176.5 cm Axel Hernández DO Work Phone: [facility] 10-03-2024 10:58-0500 Body mass index (BMI) [Ratio] 26.64 kg/m2 Axel Hernández DO Work Phone: [facility] 10-03-2024 10:58-0500 Body temperature 98.1 [degF] Axel Hernández DO Work Phone: [facility] 10-03-2024 10:58-0500 Body weight 83.01 kg Axel Hernández DO Work Phone: [facility] 08-28-2024 14:47-0400 Blood Pressure Location Davie Tristancorriney [facility] 08-28-2024 14:47-0400 Diastolic blood pressure 75 mm[Hg] Davie Mourany [facility] 08-28-2024 14:47-0400 Heart rate 65 /min Davie Mourany [facility] 08-28-2024 14:47-0400 Respiratory rate 16 /min Davie Hudsonurany [facility] 08-28-2024 14:47-0400 Systolic blood pressure 119 mm[Hg] Davie Mourany [facility] 06-11-2024 12:48-0400 Diastolic blood pressure 78 mm[Hg] Kashif Kirnus [facility] 06-11-2024 12:48-0400 Heart rate 70 /min Kashif Kirnus [facility] 06-11-2024 12:48-0400 Respiratory rate 18 /min Kashif Kirnus [facility] 06-11-2024 12:48-0400 SaO2% (BldA) [Mass fraction] 97 % Kashif Kirnus [facility] 06-11-2024 12:48-0400 Systolic blood pressure 138 mm[Hg] Kashif Kirnus [facility] 05-30-2024 13:31-0400 Blood Pressure Location Dixon Dubose [facility] 05-30-2024 13:31-0400 Diastolic blood pressure 70 mm[Hg] Dixon Dubose [facility] 05-30-2024 13:31-0400 Heart rate 75 /min Dixon Dubose [facility] 05-30-2024 13:31-0400 Respiratory rate 18 /min Dixon Dubose [facility] 05-30-2024 13:31-0400 SaO2% (BldA) [Mass fraction] 95 % Dixon Dubose [facility] 05-30-2024 13:31-0400 Systolic blood pressure 130 mm[Hg] Dixon Dubose [facility] 04-20-2024 13:17-0400 Diastolic blood pressure 78 mm[Hg] Kashif Kirnus [facility] 04-20-2024 13:17-0400 Heart rate 62 /min Kashif Kirnus [facility] 04-20-2024 13:17-0400 SaO2% (BldA) [Mass fraction] 97 % Kashif Kirnus [facility] 04-20-2024 13:17-0400 Systolic blood pressure 138 mm[Hg] Kashif Kirnus [facility] 03-26-2024 14:30-0400 Diastolic blood pressure 64 mm[Hg] Axel Hernández [facility] 03-26-2024 14:30-0400 Heart rate 50 /min Axel Hernández [facility] 03-26-2024 14:30-0400 Respiratory rate 16 /min Axel Hernández [facility] 03-26-2024 14:30-0400 SaO2% (BldA) [Mass fraction] 98 % Axel Catherine [facility] 03-26-2024 14:30-0400 Systolic blood pressure 128 mm[Hg] Axel Catherine [facility] 03-26-2024 13:31-0400 Heart rate 54 /min Axel Catherine [facility] 03-26-2024 13:31-0400 SaO2% (BldA) [Mass fraction] 97 % Axel Catherine [facility] 03-26-2024 13:31-0400 Respiratory rate 16 /min Axel Catherine [facility] 03-26-2024 13:30-0400 Body temperature 97.34 [degF] Axel Catherine [facility] 03-26-2024 13:29-0400 Blood Pressure Location Axel Catherine [facility] 03-26-2024 13:29-0400 Diastolic blood pressure 70 mm[Hg] Axel Catherine [facility] 03-26-2024 13:29-0400 Mean blood pressure 88 mm[Hg] Axel Catherine [facility] 03-26-2024 13:29-0400 Systolic blood pressure 125 mm[Hg] Axel Catherine [facility] 03-26-2024 13:20-0400 Body temperature 97.52 [degF] Axel Hernández [facility] 03-26-2024 13:20-0400 Diastolic blood pressure 63 mm[Hg] Axel Hernández [facility] 03-26-2024 13:20-0400 Heart rate 54 /min Axel Hernández [facility] 03-26-2024 13:20-0400 Mean blood pressure 77 mm[Hg] Axel Catherine [facility] 03-26-2024 13:20-0400 Respiratory rate 15 /min Axel Catherine [facility] 03-26-2024 13:20-0400 SaO2% (BldA) [Mass fraction] 97 % Axel Hernández [facility] 03-26-2024 13:20-0400 Systolic blood pressure 104 mm[Hg] Axel Catherine [facility] 03-26-2024 13:15-0400 Mean blood pressure 73 mm[Hg] Axel Hernández [facility] 03-26-2024 13:15-0400 Respiratory rate 15 /min Axel Catherine [facility] 03-26-2024 13:10-0400 Mean blood pressure 72 mm[Hg] Axel Hernández [facility] 03-26-2024 13:10-0400 Respiratory rate 11 /min Axel Hernández [facility] 03-26-2024 12:55-0400 Body temperature 97.52 [degF] Axel Hernández [facility] 03-26-2024 12:50-0400 Respiratory rate 1 /min Axel Hernández [facility] 03-26-2024 09:36-0400 Blood Pressure Location Axel Hernández [facility] 03-26-2024 09:36-0400 Mean blood pressure 112 mm[Hg] Axel Hernández [facility] 03-26-2024 09:34-0400 Mean blood pressure 97 mm[Hg] Axel Hernández [facility] 03-26-2024 09:34-0400 Body temperature 97.34 [degF] Axel Catherine [facility] 03-26-2024 09:34-0400 Blood Pressure Location Axel Catherine [facility] 03-26-2024 09:34-0400 Heart rate 50 /min Axel Catherine [facility] 03-06-2024 08:11-0400 Blood Pressure Location Axel Catherine [facility] 03-06-2024 08:11-0400 Diastolic blood pressure 74 mm[Hg] Axel Catherine [facility] 03-06-2024 08:11-0400 Heart rate 56 /min Axel Catherine [facility] 03-06-2024 08:11-0400 Mean blood pressure 98 mm[Hg] Axel Catherine [facility] 03-06-2024 08:11-0400 Systolic blood pressure 147 mm[Hg] Axel Catherine [facility] 03-06-2024 08:11-0400 Heart rate 57 /min Axel Catherine [facility] 03-06-2024 08:11-0400 SaO2% (BldA) [Mass fraction] 98 % Axel Catherine [facility] 03-06-2024 08:10-0400 Blood Pressure Location Axel Catherine [facility] 03-06-2024 08:10-0400 Body temperature 98.06 [degF] Axel Catherine [facility] 03-06-2024 08:10-0400 Diastolic blood pressure 73 mm[Hg] Axel Catherine [facility] 03-06-2024 08:10-0400 Mean blood pressure 92 mm[Hg] Axel Hernández [facility] 03-06-2024 08:10-0400 Systolic blood pressure 129 mm[Hg] Axel Hernández [facility] 03-06-2024 08:10-0400 Respiratory rate 18 /min Axel Hernández [facility] 11-18-2023 11:00-0500 Body height 180.34 cm Jadamary Rene Other [employer] Other 11-18-2023 11:00-0500 Body mass index (BMI) [Ratio] 25.38 kg/m2 Jadamary Rene Other [employer] Other 11-18-2023 11:00-0500 Body temperature 97.6 [degF] Jadamary Rene Other [employer] Other 11-18-2023 11:00-0500 Body weight 82.56 kg Jadamary Rene Other [employer] Other 11-18-2023 11:00-0500 Diastolic blood pressure 80 mm[Hg] Jadamary Rene Other [employer] Other 11-18-2023 11:00-0500 Respiratory rate 18 /min Jada Rene Other [employer] Other 11-18-2023 11:00-0500 SaO2% (BldA) [Mass fraction] 99 % Jadamary Rene Other [employer] Other 11-18-2023 11:00-0500 Systolic blood pressure 132 mm[Hg] Jadaendy Rene Other [employer] Other 11-02-2023 13:00-0500 Body height 180.34 cm Jada Rene Other [employer] Other 11-02-2023 13:00-0500 Body mass index (BMI) [Ratio] 24.4 kg/m2 Jada Rene Other [employer] Other 11-02-2023 13:00-0500 Body weight 79.38 kg Jada Rene Other [employer] Other 11-02-2023 13:00-0500 Diastolic blood pressure 82 mm[Hg] Jada Rene Other [employer] Other 11-02-2023 13:00-0500 Respiratory rate 18 /min Jadamary Rene Other [employer] Other 11-02-2023 13:00-0500 SaO2% (BldA) [Mass fraction] 97 % Jada Rene Other [employer] Other 11-02-2023 13:00-0500 Systolic blood pressure 138 mm[Hg] Jada Rene Other [employer] Other 09-21-2023 10:00-0500 Body height 180.34 cm Jadamary Rene Other [employer] Other 09-21-2023 10:00-0500 Body mass index (BMI) [Ratio] 25.81 kg/m2 Jada Rene Other [employer] Other 09-21-2023 10:00-0500 Body weight 83.96 kg Jadaendy Rene Other [employer] Other 09-21-2023 10:00-0500 Diastolic blood pressure 70 mm[Hg] Jada Rene Other [employer] Other 09-21-2023 10:00-0500 Respiratory rate 18 /min Jada Rene Other [employer] Other 09-21-2023 10:00-0500 SaO2% (BldA) [Mass fraction] 98 % Jada Rene Other [employer] Other 09-21-2023 10:00-0500 Systolic blood pressure 140 mm[Hg] Jada Rene Other [employer] Other 06-16-2023 11:00-0400 Body height 180.34 cm Jada Rene Other [employer] Other 06-16-2023 11:00-0400 Body mass index (BMI) [Ratio] 23.79 kg/m2 Jada Rene Other [employer] Other 06-16-2023 11:00-0400 Body weight 77.38 kg Jada Rene Other [employer] Other 06-16-2023 11:00-0400 Diastolic blood pressure 64 mm[Hg] Jada Rene Other [employer] Other 06-16-2023 11:00-0400 Respiratory rate 18 /min Jada Rene Other [employer] Other 06-16-2023 11:00-0400 SaO2% (BldA) [Mass fraction] 98 % Jada Rene Other [employer] Other 06-16-2023 11:00-0400 Systolic blood pressure 118 mm[Hg] Jada Rene Other [employer] Other Encounters Encounter Date Encounter Type Care Provider Facility Start: 05-13-2026 ambulatory YANIQUE A REYES Facili ty:[facility] Start: 08-09-2025 ambulatory YANIQUE A REYES Facili ty:[facility] Start: 07-11-2025 End: 07-11-2025 ambulatory YANIQUE A REYES Facility[facility] Start: 07-08-2025 End: 07-08-2025 ambulatory COMBAT SYSTEMS OPERATOR Jaden Maravilla Facility:[facility] Start: 07-05-2025 ambulatory YANIQUE A REYES Facili ty:CD:[id number] Start: 07-04-2025 End: 07-04-2025 ambulatory YANIQUE A REYES Facility:[facility] Start: 06-19-2025 ambulatory YANIQUE A REYES Facili ty:[facility] Start: 06-17-2025 End: 06-23-2025 Evaluation and management of inpatient Ehad Tere COHN Work Phone: [facility] 8 Acute Comment on above: 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 ([facility]) (Primary Dx) Start: 06-14-2025 End: 06-18-2025 ambulatory YANIQUE A REYES Facility:CD:[id number] Start: 06-13-2025 End: 06-13-2025 ambulatory YANIQUE A REYES Facility:[facility] Start: 06-07-2025 End: 06-13-2025 ambulatory YANIQUE A REYES Facility:CD:[id number] Start: 06-07-2025 End: 06-07-2025 ambulatory YANIQUE A REYES Facility:[facility] Start: 06-02-2025 End: 07-23-2025 Evaluation and management of inpatient Axel Monet DO Work Phone: [facility] Comment on above: Hyponatremia (Primar y Dx) Start: 05-20-2025 End: 05-20-2025 Lab Drop off YANIQUE MCNEILL [facility] Start: 05-20-2025 End: 05-20-2025 ambulatory Edwin Garcia Facility: [facility] Start: 05-09-2025 End: 05-09-2025 ambulatory Edwin Garcia Facility: [facility] Start: 02-05-2025 End: 02-06-2025 Lab Drop off Edwin Garcia [facility] Start: 02-05-2025 End: 02-06-2025 ambulatory Edwin Garcia Facility:[facility] Start: 01-24-2025 End: 01-24-2025 Lab Drop off Edwin Garcia [facility] Start: 01-24-2025 End: 01-24-2025 ambulatory Edwin Garcia Facility:[facility] Start: 01-09-2025 End: 01-09-2025 Lab Drop off Edwin Garcia [facility] Start: 01-09-2025 End: 01-09-2025 ambulatory MD Edwin Garcia Facility:[facility] Start: 12-31-2024 End: 12-31-2024 Lab Drop off Edwin Garcia [facility] Start: 12-31-2024 End: 12-31-2024 ambulatory MD Edwin Garcia Facility: [facility] Start: 12-24-2024 End: 12-24-2024 ambulatory Edwin Garcia Facility: [facility] Start: 12-17-2024 End: 12-17-2024 Lab Drop off Edwin Garcia [facility] Start: 12-17-2024 End: 12-17-2024 ambulatory Edwin Garcia Facility:[facility] Start: 12-17-2024 End: 01-22-2025 ambulatory Edwin Garcia Facility::[id number] Start: 11-28-2024 End: 11-28-2024 Bamboo flowsheet Jose L Chow DRIVER RETRAINING INSTRUCTOR Work Phone: [facility] Start: 11-28-2024 End: 11-28-2024 Bamboo flowsheet Jose L Chow DRIVER RETRAINING INSTRUCTOR Work Phone: [facility] Start: 11-28-2024 End: 11-28-2024 Postop follow up visit related to original px Jose L Chow DRIVER RETRAINING INSTRUCTOR Work Phone: [facility] Comment on above: Status post carpal t unnel release (Primary Dx) Start: 11-28-2024 End: 11-28-2024 ambulatory JOSE L CHOW Not Available Start: 11-26-2024 End: 11-26-2024 Bamboo flowsheet Emiliano Escamilla MD Work Phone: [facility] Start: 11-26-2024 End: 11-26-2024 Bamboo flowsheet Emiliano Escamilla MD Work Phone: [facility] Start: 11-26-2024 End: 11-26-2024 Patient encounter procedure Emiliano Escamilla MD Work Phone: [facility] Comment on above: Foreign body of righ [...] day surgery center Axel Hernández [facility] Start: 11-19-2024 End: 11-19-2024 ambulatory Axel Hernández Facility:[facility] Start: 11-13-2024 ambulatory [facility] Start: 11-12-2024 End: 11-12-2024 Lab Drop off Edwin Garcia [facility] Start: 11-12-2024 End: 11-12-2024 ambulatory Edwin Garcia Facility:[facility] Start: 11-01-2024 End: 11-01-2024 ambulatory Edwin Garcia Facility:[facility] Start: 10-30-2024 End: 10-30-2024 ambulatory Axel Hernández Facility:[facility] Start: 10-30-2024 End: 10-30-2024 Patient encounter procedure Axel Hernández [facility] Start: 10-03-2024 End: 10-03-2024 Bamboo flowsheet Axel [...] Bamboo flowsheet Shala Farrell MD Work Phone: [facility] Start: 09-28-2024 End: 09-28-2024 Bamboo flowsheet Shala Farrell MD Work Phone: [facility] Start: 09-28-2024 End: 09-28-2024 Patient encounter procedure Shala Farrell MD Work Phone: [facility] Comment on above: Pain in both upper e xtremities (Primary Dx); Carpal tunnel syndrome, bilateral Start: 09-28-2024 End: 09-28-2024 ambulatory SHALA FARRELL Not Available Start: 09-10-2024 End: 09-10-2024 ambulatory Edwin Garcia Facility:[facility] [place] Start: 08-28-2024 End: 08-28-2024 ambulatory Davie Vargas Facility:[facility] Start: 08-28-2024 End: 08-28-2024 Patient encounter procedure Davie Vargas [facility] [place] Start: 08-20-2024 End: 08-20-2024 Telephone encounter Shala Farrell MD Work Phone: [facility] 111 Start: 08-13-2024 End: 08-13-2024 ambulatory Nathaniel Bonilla MD Facility:[facility] Start: 08-07-2024 End: 08-07-2024 ambulatory Edwin Garcia Facility:[facility] Start: 07-31-2024 End: 07-31-2024 ambulatory Edwin Garcia Facility:[facility] Start: 07-24-2024 End: 07-24-2024 ambulatory Edwin Garcia Facility:[facility] Start: 07-23-2024 ambulatory Edwin Garcia Facility :[facility] Start: 07-05-2024 ambulatory Axel Hernández Facility :[facility] Start: 07-03-2024 End: 07-03-2024 ambulatory Edwin PatsyShanna Garcia Facility:[facility] Start: 06-20-2024 End: 06-20-2024 ambulatory AXEL HERNÁNDEZ Not Available Start: 06-11-2024 End: 06-11-2024 ambulatory XXXX NONE Facility:[facility] Start: 06-11-2024 End: 06-11-2024 Patient encounter procedure Kashif Barnett [facility] Start: 05-30-2024 End: 05-30-2024 ambulatory Edwin Garcia Facility:[facility] Start: 05-30-2024 End: 05-30-2024 Patient encounter procedure Dixon Dubose [facility] Start: 05-21-2024 End: 05-21-2024 Patient encounter procedure Kashif Barnett [facility] Start: 05-01-2024 End: 05-01-2024 Patient encounter procedure Kashif Layus [facility] Start: 05-01-2024 End: 05-01-2024 Lab Drop off Edwin Garcia [facility] Start: 04-20-2024 End: 04-20-2024 Patient encounter procedure Kashif Costanus [facility] Start: 04-04-2024 End: 04-04-2024 ambulatory AXEL HERNÁNDEZ Not Available Start: 03-26-2024 End: 03-26-2024 Admission to same day surgery center Axel Hernández [facility] Start: 03-06-2024 End: 03-06-2024 Patient encounter procedure Axel Hernández [facility] Start: 02-15-2024 End: 02-15-2024 ambulatory AXEL HERNÁNDEZ Not Available Start: 02-15-2024 End: 02-15-2024 ambulatory AXEL HERNÁNDEZ Not Available Start: 12-06-2023 End: 12-06-2023 ambulatory Jadaendy Rene Other [employer] Other Start: 12-06-2023 Telephone encounter Jada Edgard [facility] Start: 12-02-2023 End: 12-02-2023 ambulatory Jada Edgard Other [employer] Other Start: 12-02-2023 Telephone encounter Jadaendy Rene [facility] Start: 12-01-2023 End: 12-01-2023 Lab Drop off Edwin Garcia [facility] Start: 11-18-2023 End: 11-18-2023 ambulatory Jadaendy Rene Other [employer] Other Start: 11-18-2023 Office outpatient vi sit 25 minutes Jadaendy Rene [facility] [place] Start: 11-02-2023 End: 11-02-2023 ambulatory Jada A Rene [employer] Other Start: 11-02-2023 Office outpatient vi sit 25 minutes Jada Rene [facility] [place] Start: 11-02-2023 Telephone encounter Jada Edgard [facility] Start: 10-28-2023 End: 10-28-2023 ambulatory Jdaa Rene Other [employer] Other Start: 10-28-2023 Telephone encounter Jada Rene [facility] Start: 09-30-2023 End: 09-30-2023 Nurse Triage Venessa Riggins RN NURSE LACQUER MACHINE FEEDER Comment on above: Refill Request Start: 09-30-2023 Telephone encounter Jada Rene [facility] Start: 09-21-2023 End: 09-21-2023 ambulatory Jadaendy Rene Other [employer] Other Start: 09-21-2023 Office outpatient vi sit 25 minutes Jadamary Rene [facility] Start: 08-29-2023 End: 08-29-2023 ambulatory Jada Edgard Other [employer] Other Start: 08-29-2023 Telephone encounter Jadamary Rene [facility] Start: 08-26-2023 End: 08-26-2023 ambulatory Jadaendy Rene Other [employer] Other Start: 08-26-2023 Telephone encounter Jada Rene [facility] Start: 08-08-2023 End: 08-08-2023 ambulatory Jadaendy Rene Other [employer] Other Start: 08-08-2023 Telephone encounter Jada Rene [facility] Start: 07-27-2023 End: 07-27-2023 ambulatory Jadaendy Rene Other [employer] Other Start: 07-27-2023 Telephone encounter Jada Rene [facility] Start: 06-16-2023 End: 06-16-2023 ambulatory Jada Endy Rene [employer] Other Start: 06-16-2023 Office outpatient ne w 45 minutes Jada Rene [facility] Start: 06-16-2023 Telephone encounter Jada Rene [facility] Procedures Date Procedure Procedure Detail Performing Clinician Start: 06-23-2025 Electrolyte panel Toy Baez MD Work Phone: Start: 06-23-2025 Basic metabolic pane l calcium total Rocio Davis MD Work Phone: Start: 06-22-2025 Electrolyte panel Toy Baez MD Work Phone: Start: 06-22-2025 Ecg routine ecg w/le ast 12 lds trcg only w/o i&r Erika Crisostomo MD Work Phone: Start: 06-22-2025 Electrolyte panel Jose Miguel Maria MD Work Phone: Start: 06-22-2025 EXTRA TUBES Erika Crisostomo MD Work Phone: Start: 06-22-2025 EXTRA TUBES LAVENDER TOP Erika Crisostomo MD Work Phone: Start: 06-22-2025 End: 06-22-2025 Basic metabolic panel calcium total Rocio Davis MD Work Phone: Start: 06-21-2025 Electrolyte panel Jose Miguel Maria MD Work Phone: Start: 06-21-2025 C-reactive protein Kenia Crisostomo MD Work Phone: Start: 06-21-2025 Electrolyte panel Jose Miguel Maria MD Work Phone: Start: 06-21-2025 Ct head/brain w/o contrast material Erika Crisostomo MD Work Phone: Start: 06-21-2025 Blood gases any combination ph pco2 po2 co2 hco3 Eirka Crisostomo MD Work Phone: Start: 06-21-2025 Electrolyte panel Royal Davis MD Work Phone: Start: 06-21-2025 Basic metabolic pane l calcium total Jose Miguel Maria MD Work Phone: Start: 06-20-2025 EXTRA TUBES Ehad Joey vanegas MD Work Phone: Start: 06-20-2025 EXTRA TUBES LAVENDER TOP Mirian Carranza MD Work Phone: Start: 06-20-2025 DISCONTINUE IN PROCE SS EEG TESTING Jose Miguel Maria MD Work Phone: Start: 06-20-2025 Electrolyte panel Jose Miguel Maria MD Work Phone: Start: 06-20-2025 Assay of osmolality urine Maisha Vergara MD Work Phone: Start: 06-20-2025 Electrolyte panel Jose Miguel Maria MD Work Phone: Start: 06-20-2025 Electrolyte panel Royal Davis MD Work Phone: Start: 06-20-2025 EEG VIDEO MONITORING Zaid Davis MD Work Phone: Start: 06-20-2025 Basic metabolic pane l calcium total Jose Miguel Maria MD Work Phone: Start: 06-19-2025 Electrolyte panel Jose Miguel Maria MD Work Phone: Start: 06-19-2025 Heparin assay Mirian gonzalez MD Work Phone: Start: 06-19-2025 Echo tthrc r-t 2d w/wom-mode compl spec&colr d Rocio Davis MD Work Phone: Start: 06-19-2025 Duplex scan extracra nial art compl bi study Rocio Davis MD Work Phone: Start: 06-19-2025 Basic metabolic pane l calcium total Rocio Davis MD Work Phone: Start: 06-18-2025 Heparin assay Mirian gonzalez MD Work Phone: Start: 06-18-2025 EEG Rocio gonzalez MD Work Phone: Start: 06-18-2025 BEDSIDE GLUCOSE Mirian Barker MD Work Phone: Start: 06-18-2025 Assay of magnesium Agustina Davis MD Work Phone: Start: 06-18-2025 EXTRA TUBES Mirian vanegas MD Work Phone: Start: 06-18-2025 EXTRA TUBES PST TOP Eha d Tere COHN Work Phone: Start: 06-18-2025 Assay of osmolality blood Rocio Davis MD Work Phone: Start: 06-18-2025 Mri brain brain stem w/o contrast material Rocio Davis MD Work Phone: Start: 06-18-2025 Basic metabolic pane l calcium total Rocio Davis MD Work Phone: Start: 06-18-2025 Lipid panel Rocio gonzalez MD Work Phone: Start: 06-17-2025 Comprehensive metabo lic panel Rocio Davis MD Work Phone: Start: 06-17-2025 BEDSIDE GLUCOSE Ehad Barker MD Work Phone: Start: 06-17-[address]25 [address] a n[address] ct w/blood flow&volume Tiffany Keenan MD Work Phone: Start: 06-05-2025 Glucose blood reagen t strip Flaco Ren MD Work Phone: Start: 06-05-2025 Electrolyte panel Deann Carter MD Work Phone: Start: 06-05-2025 Glucose blood reagen t strip Flaco Ren MD Work Phone: Start: 06-05-2025 Basic metabolic pane l calcium total Beto Hedrick DO Work Phone: Start: 06-04-2025 End: 06-04-2025 Electrolyte panel Beto Hedrick DO Work Phone: Start: 06-04-2025 Glucose blood reagen t strip Flaco Ren MD Work Phone: Start: 06-04-2025 Electrolyte panel Rolf l Floridalma DO Work Phone: Start: 06-04-2025 Glucose blood reagen t strip Flaco Ren MD Work Phone: Start: 06-04-2025 BASIC METABOLIC PANE L W/ REFLEX TO MG FOR LOW K Roberto Good MD Work Phone: Start: 06-04-2025 Glucose blood reagen t strip Flaco Ren MD Work Phone: Start: 06-04-2025 Glucose blood reagen t strip Flaco Ren MD Work Phone: Start: 06-04-2025 BASIC METABOLIC PANE L W/ REFLEX TO MG FOR LOW K Roberto Good MD Work Phone: Start: 06-04-2025 Glucose blood reagen t strip Flaco Ren MD Work Phone: Start: 06-04-2025 BASIC METABOLIC PANE L W/ REFLEX TO MG FOR LOW K Roberto Good MD Work Phone: Start: 06-04-2025 Ct head/brain w/o contrast material Bisi Vaughn MD Work Phone: Start: 06-04-2025 BASIC METABOLIC PANE L W/ REFLEX TO MG FOR LOW K Bisi Vaughn MD Work Phone: Start: 06-04-2025 Cortisol total Bisi Vaughn MD Work Phone: Start: 06-04-2025 BASIC METABOLIC PANE L W/ REFLEX TO MG FOR LOW K Roberto Good MD Work Phone: Start: 06-04-2025 ARTERIAL BLOOD GAS, POC Betolaly Hedrick DO Work Phone: Start: 06-04-2025 CALCIUM, IONIC (POC) Da souravlaly Hedrick DO Work Phone: Start: 06-04-2025 CREATININE W/GFR POI NT OF CARE Beto Hedrick DO Work Phone: Start: 06-04-2025 ELECTROLYTES PLUS Rolfpatsy Hedrick DO Work Phone: Start: 06-04-2025 Gluc bld gluc mntr d ev cleared fda spec home use Beto Hedrick DO Work Phone: Start: 06-04-2025 LACTIC ACID,POINT OF CARE Beto Hedrick DO Work Phone: Start: 06-04-2025 BASIC METABOLIC PANE L W/ REFLEX TO MG FOR LOW K Roberto Good MD Work Phone: Start: 06-03-2025 Glucose [...] TO MG FOR LOW K Adore Cueto OPERATING THEATRE TECHNICIAN - DRIVER RETRAINING INSTRUCTOR Work Phone: Start: 06-03-2025 End: 06-04-2025 Prothrombin time Adore Cueto OPERATING THEATRE TECHNICIAN - DRIVER RETRAINING INSTRUCTOR Work Phone: Start: 06-02-2025 Glucose blood reagen t strip Brigida Valeriano Orrutp DO Work Phone: Start: 06-02-2025 Glucose blood reagen t strip Brigida J Orlop DO Work Phone: Start: 06-02-2025 BASIC METABOLIC PANE L W/ REFLEX TO MG FOR LOW K Leelee Easley OPERATING THEATRE TECHNICIAN - CLAIMS ATTORNEY Work Phone: Start: 06-02-2025 End: 06-02-2025 Prothrombin time Leelee Easley OPERATING THEATRE TECHNICIAN - CLAIMS ATTORNEY Work Phone: Start: 11-19-2024 [facility] CAPILLARY GLUCO SE POC Axel Hernández DO Work Phone: Start: 11-19-2024 Decompression of med carlos nerve Axel Hernández Start: 03-26-2024 Decompression of med carlos nerve Axel Hernández Decompression of med carlos nerve Axel Hernández 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 Status post carpal tunnel release Jose L Chow NP Work Phone: Release of trigger finger Aury Hernández Surgery (qualifier value) Sa fariha Garcia Plan of Treatment Date Care Activity Detail Author Start: 06-05-2026 GFR test (Diabetes, CKD 3-4, OR last GFR 15-59) GFR test (Diabetes, CKD 3-4, OR last GFR 15-59) [employer] Start: 06-14-2025 Influenza vaccination Flu vaccine (# 1) [facility] Start: 06-12-2025 End: 06-05-2026 Basic metabolic 2000 panel - Serum or Plasma Basic Metabolic Panel Lab Routine Hyponatremia Expected: 06/12/2025, Expires: 06/05/2026 [employer] Comment on above: Expected: 06/12/2025 , Expires: 06/05/2026 Start: 03-29-2025 COVID-19 Vaccine ( season) COVID-19 Vaccine ( season) [employer] Start: 12-26-2024 End: 12-26-2024 Patient encounter procedure 12/26/2024 1:45 PM EST Office Visit [facility] [address] [place] [address] Jose L Chow, CHRISTOPHER [address] [place] [address] [facility] Start: 11-28-2024 End: 11-28-2024 Patient encounter procedure [facility] Comment on above: Arrived Start: 11-26-2024 End: 11-26-2024 Patient encounter procedure 11/26/2024 10:30 AM EST Office Visit [facility] [address] [facility] [place] [id number] Emiliano Escamilla MD [address] [facility] [address] [place] [address] Arrived [facility] Comment on above: Arrived Start: 11-14-2024 Annual Wellness Visi t (Medicare Advantage) Annual Wellness Visit (Medicare Advantage) [facility] Start: 10-03-2024 End: 10-03-2025 ECG 12 lead ECG 12 lead ECG Routine Pre-op testing Expected: 10/03/2024 (Approximate), Expires: 10/03/2025 [facility] Work Phone: Comment on above: Expected: 10/03/2024 (Approximate), Expires: 10/03/2025 Start: 10-03-2024 End: 10-03-2024 Patient encounter procedure 10/03/2024 10:45 AM EST Office Visit [facility] [address] [place] [address] Axel Hernández, DO [address] [place] [address] Right hand pain (Primary Dx); Arm weakness [facility] Comment on above: Right hand pain (Holly ayaan Dx); Arm weakness Start: 07-15-2024 Influenza vaccination Influenza Vacc ine (#1) [facility] Start: 07-15-2023 Influenza vaccination Influenza Vacc ine (#1) [facility] Start: 11-14-2022 Advance Directive Discussion Advance Directive Discussion [facility] Start: 11-14-2022 Depression Assessment Depression Ass essment [facility] Start: 2017 Respiratory Syncytia l Virus (RSV) or age 60 yrs+ (1 - 1-dose 75+ series) Respiratory Syncytial Virus (RSV) or age 60 yrs+ (1 - 1-dose 75+ series) [facility] Start: 03-31-2016 Pneumococcal Vaccine : 65+ (2 - PPSV23 or PCV20) Pneumococcal Vaccine: 65+ (2 - PPSV23 or PCV20) [facility] Start: 03-31-2016 Pneumococcal Vaccine : 65+ Years (2 of 2 - PPSV23 or PCV20) Pneumococcal Vaccine: 65+ Years (2 of 2 - PPSV23 or PCV20) [facility] Start: 03-24-2016 Hepatitis B surface antibody level LDL Cholesterol [facility] Start: 09-24-2015 Hemoglobin A1c/Hemoglobin.total in Blood HbA1C [facility] Start: 08-01-2015 3 comp foot exam completed Diabetic Foot Exam [facility] Start: 07-25-2015 Hepatitis B screening Urine Albumin:Creatinine Ratio [facility] Start: 02-01-2015 Urine microalbumin profile DTaP,Tdap,Td Vaccine (1 - Tdap) [facility] Start: 10-24-2013 Shingles vaccine (2 of 3) Shingles vaccine (2 of 3) [facility] Start: 10-24-2013 Shingrix Vaccine (2 of 3) Shingrix Vaccine (2 of 3) [facility] Start: 09-14-2012 Hepatitis C antibody , confirmatory test Dilated Retinal Exam [facility] Start: 2002 RSV Vaccine (1 - 1-d ose 60+ series) RSV Vaccine (1 - 1-dose 60+ series) [facility] Start: 1961 DTaP/Tdap/Td vaccine (1 - Tdap) DTaP/Tdap/Td vaccine (1 - Tdap) [facility] Start: 1960 Urine screening for protein Diabetic Alb to Cr ratio (uACR) test [facility] Start: 1954 Depression Screen Depression Screen [facility] Start: 1952 Lipid panel Lipids [facility] Start: 1942 Covid-19 Vaccine (#1) Covid-19 Vacci ne (#1) [facility] End: 06-19-2025 Baseline Routine EEG Baseline Routine EEG Neurology Routine Once for 1 Occurrences starting 06/19/2025 until 06/19/[facility] Comment on above: Once for 1 Occurrenc es starting 06/19/2025 until 06/19/2025 End: 06-13-2025 Basic metabolic 2000 panel - Serum or Plasma Basic Metabolic Panel Lab Routine Tomorrow AM for 10 Occurrences starting 06/04/2025 until 06/13/2025, 1 completed [employer] Comment on above: Tomorrow AM for 10 O ccurrences starting 06/04/2025 until 06/13/2025, 1 completed Basic metabolic 2000 panel - Serum or Plasma Basic Metabolic Panel Lab Routine Lab max of 3 days, Daily, for lab use only until discontinued starting 06/18/2025, 6 completed [facility] Comment on above: Lab max of 3 days, D aily, for lab use only until discontinued starting 06/18/2025, 6 completed End: 06-25-2025 Blood count hemoglobin Hemoglobin Lab Routine Every Other Day for 3 Days starting 06/23/2025 until 06/25/2025 [facility] Comment on above: Every Other Day for 3 Days starting 06/23/2025 until 06/25/2025 CBC W Auto Different ial panel - Blood CBC auto differential Lab Routine Lab max of 3 days, Daily, for lab use only until discontinued starting 06/17/2025, 7 completed [facility] Comment on above: Lab max of 3 days, D aily, for lab use only until discontinued starting 06/17/2025, 7 completed Continuous pulse oximetry Pulse oximetry, continuous Respiratory Care Routine Every 4hr until discontinued starting 06/02/2025 [facility] Comment on above: Every 4hr until disc ontinued starting 06/02/2025 End: 06-08-2025 Electrolyte Panel Electrolyte Panel Lab Routine Every 8 Hours (Lab) for 3 Days starting 06/05/2025 until 06/08/2025, 1 completed [facility] Work Phone: Comment on above: Every 8 Hours (Lab) for 3 Days starting 06/05/2025 until 06/08/2025, 1 completed End: 06-25-2025 Electrolyte panel Electrolyte panel Lab Routine Lab max of 3 days, Every 8hr, lab use only for 3 Days starting 06/22/2025 until 06/25/2025, 2 completed [employer] Work Phone: Comment on above: Lab max of 3 days, E very 8hr, lab use only for 3 Days starting 06/22/2025 until 06/25/2025, 2 completed Glucose [Mass/volume ] in Serum or Plasma [facility] Comment on above: As Needed until disc ontinued starting 06/02/2025 4X Daily (AC & HS) u ntil discontinued starting 06/02/2025 End: 06-23-2025 Holter monitor study EEG Video Monitoring Daily Neurology Routine Lab max of 3 days, Daily, for lab use only for 5 Occurrences starting 06/19/2025 until 06/23/2025, 1 completed [facility] Comment on above: Lab max of 3 days, D aily, for lab use only for 5 Occurrences starting 06/19/2025 until 06/23/2025, 1 completed Holter monitor study EEG Video M onitoring Daily Neurology Routine 06/20/2025 6:06 PM EDT [facility] Magnesium [Mass/volu me] in Serum or Plasma Magnesium Lab Routine Lab max of 3 days, Daily, for lab use only until discontinued starting 06/23/2025, 1 completed [facility] Comment on above: Lab max of 3 days, D aily, for lab use only until discontinued starting 06/23/2025, 1 completed End: 06-23-2025 Magnesium [Mass/volume] in Serum or Plasma Magnesium Lab Routine Once for 1 Occurrences starting 06/23/2025 until 06/23/2025 [employer] Work Phone: Comment on above: Once for 1 Occurrenc es starting 06/23/2025 until 06/23/2025 Nasal Cannula Oxygen Nasal Cannu la Oxygen Respiratory Care Routine Daily until discontinued starting 06/05/2025 [facility] Comment on above: Daily until disconti nued starting 06/05/2025 Oxygen Therapy - Maintain SpO2: 90%; *QM CONSULTANT Guidelines for O2: Yes; Document: \[email or web address]\ep ic\EPIC_Reference\Order s\Respiratory Care Guidelines\CPG Oxygen 2022.pdf Oxygen Therapy - Maintain SpO2: 90%; *QM CONSULTANT Guidelines for O2: Yes; Document: \[email or web address]\ep ic\EPIC_Reference\Order s\Respiratory Care Guidelines\CPG Oxygen 2022.pdf Respiratory Care Routine As Needed until discontinued starting 06/17/2025 [employer] Work Phone: Comment on above: As Needed until disc ontinued starting 06/17/2025 Oxygen therapy [[facility] Data Set] Initiate Oxygen Therapy Protocol Respiratory Care Routine As Needed until discontinued starting 06/02/2025 [employer] Work Phone: Comment on above: As Needed until disc ontinued starting 06/02/2025 End: 06-24-2025 Platelets [#/volume] in Blood Platelet count Lab Routine Every Third Day for 3 Days starting 06/24/2025 until 06/24/2025 [facility] Comment on above: Every Third Day for 3 Days starting 06/24/2025 until 06/24/2025 Protime & INR Protime & INR La b Routine Daily until discontinued starting 06/19/2025, 4 completed [facility] Comment on above: Daily until disconti nued starting 06/19/2025, 4 completed End: 06-12-2025 Protime-INR Protime-INR Lab Routine Daily for 8 Days starting 06/05/2025 until 06/12/2025, 1 completed [facility] Comment on above: Daily for 8 Days sta rting 06/05/2025 until 06/12/2025, 1 completed End: 06-02-2025 Respiratory care evaluation only Respiratory care evaluation only Respiratory Care Routine One Time for 1 Occurrences starting 06/02/2025 until 06/02/2025 [facility] Comment on above: One Time for 1 Occur rences starting 06/02/2025 until 06/02/2025 [facility] Immunizations Immunization Date Immunization Notes Care Provider [facility] 09-29-2024 influenza, high dose seasonal, preservative-free Erika Crisostomo [facility]-29-2024 influenza virus vaccine, unspecified formulation Axel Hernández DO Work Phone: [facility] 09-21-2023 Prevnar 20 Jada Rene Other [facility] 08-19-2023 Covid-19, Mrna, Lnp- s, Pf,brigette-sucrose,30 Mcg/0.3ml Seasonal Erika Crisostomo MD [facility] 08-19-2023 Flu Shot - Documentation Purposes Only Jadaendy Rene Other [facility] [employer] Other 08-19-2023 influenza virus vaccine, unspecified formulation Edwin Adam [facility] 08-14-2022 influenza, seasonal, injectable Jada Rene Other [facility] [employer] Other 03-31-2021 Influenza, High-dose , Quadrivalent Erika Crisostomo MD Work Phone: [facility] 03-31-2015 pneumococcal conjuga te vaccine, 13 valent Jada Rene Other [facility] 08-02-2014 influenza, high dose seasonal, preservative-free Venessa Riggins RN [facility] 08-02-2014 influenza virus vaccine, unspecified formulation Venessa Riggins RN [facility] 08-29-2013 zoster vaccine, live Venessa terrell RN [facility] 08-09-2013 influenza virus vaccine, unspecified formulation Venessa Riggins RN [facility] 07-31-2012 influenza virus vaccine, unspecified formulation Venessa Riggins RN [facility] Work Phone: 03-07-2012 TD(adult) unspecifie d formulation Erika Crisostomo MD Work Phone: [facility] 03-07-2012 tetanus and diphther ia toxoids, adsorbed, preservative free, for adult use (2 Lf of tetanus toxoid and 2 Lf of diphtheria toxoid) Venessa Riggins RN [facility] Work Phone: 08-07-2011 influenza virus vaccine, unspecified formulation Venessa Riggins RN [facility] Work Phone: NEGATED: Highlighted row has not occurred!08-28-2024 influenza virus vaccine, unspecified formulation Davie Vargas [facility] Payers Date Payer Category Payer Private Health Insurance [id number] 2025 Medicare HMO [employer] MEDICARE [id number] 2025 Private Health Insurance [id number] 2023 Medicare (Managed Care) [employer] [id number] 2023 Unknown [employer] D [employer] [id number] 2023-Present [address] [place] [id number] 1.2.840.425977.1.13.693.2. [id number] 2023 Unknown [id number] 2.16.840.1.829544.19 2023 Medicare [id number] 2.16.840.1.698591.19 2023 Self-pay 2023 Medicare [id number]. 1.13.159.2. [id number] 1942 Unknown [id number] 2.16.840.1.187837.3.579.2. 196 1942 Unknown [id number] 2.16.840.1.122782.3.579.2. 727 1942 Unknown [id number] 2.16.840.1.905110.3.579.2. 727 1942 Unknown [id number] 2.16.840.1.030161.3.579.2. 72 1942 Unknown [id number] 2.16.840.1.364640.3.579.2. 72 1942 Unknown [id number] 2.16.840.1.321242.3.579.2. 1259 1942 Unknown [id number] 2.16.840.1.076959.3.579.2. 125 1942 Unknown [id number] 2.16.840.1.316043.3.579.2. 1259 1942 Unknown [id number] 2.16.840.1.063675.3.579.2. 125 1942 Unknown [id number] 2.16.840.1.966655.3.579.2. 1259 1942 Unknown [id number] 2.16.840.1.235551.3.579.2. 125 1942 Unknown [id number] 2.16.840.1.524365.3.579.2. 1259 1942 Unknown [id number] 2.16.840.1.950996.3.579.2. 125 1942 Unknown [id number] 2.16.840.1.669449.3.579.2. 1259 1942 Unknown [id number] 2.16.840.1.399589.3.579.2. 727 1942 Unknown [id number] 2.16.840.1.491192.3.579.2. 72 1942 Unknown [id number] 2.16.840.1.837520.3.579.2. 1942 Unknown [id number] 2.16.840.1.564282.3.579.2. 1942 Unknown [id number] 2.16.840.1.106403.3.579.2. 1942 Unknown [id number] 2.16.840.1.735635.3.579.2. 1942 Unknown [id number] 2.16.840.1.328913.3.579.2. 1942 Unknown [id number] 2.16.840.1.267049.3.579.2 1942 Unknown [id number] 2.16.840.1.714197.3.579.2 1942 Unknown [id number] 2.16.840.1.912996.3.579.2 1942 Unknown [id number] 2.16.840.1.314683.3.579.2 1942 Unknown [id number] 2.16.840.1.456784.3.579.2. 1942 Unknown [id number] 2.16.840.1.016614.3.579.2. 1942 Unknown [id number] 2.16.840.1.136513.3.579.2. 1942 Unknown [id number] 2.16.840.1.922975.3.579.2. 1942 Unknown [id number] 2.16.840.1.394578.3.579.2. 1942 Unknown [id number] 2.16.840.1.033867.3.579.2 72 1942 Unknown [id number] 2.16.840.1.517004.3.579.2. 72 1942 Unknown [id number] 2.16.840.1.978543.3.579.2. 72 1942 Unknown [id number] 2.16.840.1.266172.3.579.2. 72 1942 Unknown [id number] 2.16.840.1.696271.3.579.2. 72 1942 Unknown [id number] 2.16.840.1.754270.3.579.2. 1942 Unknown [id number] 2.16.840.1.549127.3.579.2. 175 1942 Unknown [id number] 2.16.840.1.105871.3.579.2. 1942 Unknown [id number] 2.16.840.1.106222.3.579.2. 72 1942 Unknown [id number] 2.16.840.1.350355.3.579.2. 1942 Unknown [id number] 2.16.840.1.728760.3.579.2. 1942 Unknown [id number] 2.16.840.1.318589.3.579.2. 72 1942 Unknown [id number] 2.16.840.1.636946.3.579.2. 72 1942 Unknown [id number] 2.16.840.1.701040.3.579.2. 72 1942 Unknown [id number] 2.16.840.1.208295.3.579.2. 72 1942 Unknown [id number] 2.16.840.1.224243.3.579.2. 72 1942 Unknown [id number] 2.16.840.1.536868.3.579.2. 727 1942 Unknown [id number] 2.16.840.1.799457.3.579.2. 72 1942 Unknown [id number] 2.16.840.1.990130.3.579.2. 72 1942 Unknown [id number] 2.16.840.1.387728.3.579.2. 72 1942 Unknown [id number] 2.16.840.1.233754.3.579.2. 72 1942 Unknown [id number] 2.16.840.1.213139.3.579.2. 1942 Unknown [id number] 2.16.840.1.611439.3.579.2. 1942 Unknown [id number] 2.16.840.1.769898.3.579.2. 1942 Unknown [id number] 2.16.840.1.178540.3.579.2. 727 Medicare [id number] 2.16.840.1.223767.19 Unknown [id number] 2.16.840.1.543987.3.579.2. 531 Unknown [id number] 2.16.840.1.428372.3.579.2. 531 Social History Date Type Detail Facility Start: 06-20-2024 End: 06-18-2025 Sex Assigned At [facility] Start: 12-01-2023 End: 06-17-2025 Tobacco smoking status MOIS Never smoked tobacco [facility] Comment on above: denies use. Start: 06-28-2022 Alcohol intake Current drinke r of alcohol (finding) [facility] Start: 06-28-2022 End: 06-18-2025 Alcohol intake [facility] Start: 1940 Sex Assigned At Not on file [facility] Tobacco smoking status Never [facility] Comment on above: denies use. Start: 02-15-2024 End: 06-17-2025 Tobacco use and exposure Smokeless tobacco non-user [facility] Sexual Orientation [facility] Start: 03-27-2015 End: 08-22-2023 Sex Male (finding) [facility] Start: 06-02-2025 Alcoholic beverage intake Lifetime non-drinker (finding) [facility] Has the [email or web address], [place], or water [employer] threatened to shut off services in your home in past 12Mo No [facility] (I/We) worried wheth er (my/our) food would run out before (I/we) got money to buy more. Never true [facility] Start: 06-17-2025 Alcoholic beverage intake Ex-drinker (finding) [facility] [employer] How often to you hav e a drink containing alcohol? Never [facility] [employer] Medical Equipment Procedure Code Equipment Code Equipment Origin al Text Equipment Identifier Dates Test blood sugar(s) 2 times daily. Dx: non. Insulin: No dx 250.00 Start: 08-24-2013 Comment on above: Test blood sugar(s) 2 times daily. Dx: non. Insulin: No dx 250.00 Goals Date Patient Goal Desired Activity /State Personal health goal Comment on above: Formatting of this n ote might be different from the original. Evaluation of progress towards goal: Home with [facility] Functional Status Date Assessment Result Facility 06-17-2025 Total score [AUDIT-C] 0 06/17/20 25 4:54 PM EDT Moinco Cuellar, RN [facility] 10-30-2024 Functional Status No [facility] 08-28-2024 Functional Status N/A [facility] 06-11-2024 Functional Status N/A [facility] 05-30-2024 Functional Status No [facility] 04-20-2024 Functional Status N/A [facility] 03-06-2024 Functional Status No [facility] Mental Status Date Assessment Result Facility [facility] Clinical Notes 03-10-2010 to 07-11-2025 Debra Huggins RN - 06/23/2025 3:01 PM Mark Huggins RN - 06/23/2025 3:01 PM Rashid Gaona RN - 06/21/2025 1:26 PM Rashid Gaona RN - 06/21/2025 9:27 AM EDTDischarge Instructions Note Date & Type Note Facility 07-11-2025 Note Patient Education Neurology Stroke Prevention Some medical conditions and lifestyle choices can lead to a higher risk for a stroke. You can help to prevent a stroke by eating healthy foods and exercising. It also helps to not smoke and to manage any health problems you may have. How can this condition affect me? A stroke is an emergency. It should be treated right away. A stroke can lead to brain damage or threaten your life. There is a better chance of surviving and getting better after a stroke if you get medical help right away. What can increase my risk? The following medical conditions may increase your risk of a stroke: ??? Diseases of the heart and blood vessels (cardiovascular disease). ??? High blood pressure (hypertension). ??? Diabetes. ??? High cholesterol. ??? Sickle cell disease. ??? Problems with blood clotting. ??? Being very overweight. ??? Sleeping problems (obstructivesleep apnea). Other risk factors include: ??? Being older than age 60. ??? A history of blood clots, stroke, or mini-stroke (TIA). ??? Race, ethnic background, or a family history of stroke. ??? Smoking or using tobacco products. ??? Taking control pills, especially if you smoke. ??? Heavy alcohol and drug use. ??? Not being active. What actions can I take to prevent this? Manage your health conditions ??? High cholesterol. ? Eat a healthy diet. If this is not enough to manage your cholesterol, you may need to take medicines. ? Take medicines as told by your doctor. ??? High blood pressure. ? Try to keep your blood pressure below 130/80. ? If your blood pressure cannot be managed through a healthy diet and regular exercise, you may need to take medicines. ? Take medicines as told by your doctor. ? Ask your doctor if you should check your blood pressure at home. ? Have your blood pressure checked every year. ??? Diabetes. ? Eat a healthy diet and get regular exercise. If your blood sugar (glucose) cannot be managed through diet and exercise, you may need to take medicines. ? Take medicines as told by your doctor. ??? Talk to your doctor about getting checked for sleeping problems. Signs of a problem can include: ? Snoring a lot. ? Feeling very tired. ??? Make sure that you manage any other conditions you have. Nutrition ??? Follow instructions from your doctor about what to eat or drink. You may be told to: ? Eat and drink fewer calories each day. ? Limit how much salt (sodium) you use to 1,500 milligrams (mg) each day. ? Use only healthy fats for cooking, such as olive oil, canola oil, and sunflower oil. ? Eat healthy foods. To do this: ? Choose foods that are high in fiber. These include whole grains, and fresh fruits and vegetables. ? Eat at least 5 servings of fruits and vegetables a day. Try to fill one-half of your plate with fruits and vegetables at each meal. ? Choose low-fat (lean) proteins. These include low-fat cuts of meat, chicken without skin, fish, tofu, beans, and nuts. ? Eat low-fat dairy products. ? Avoid foods that: ? Are high in salt. ? Have saturated fat. ? Have trans fat. ? Have cholesterol. ? Are processed or pre-made. ? Count how many carbohydrates you eat and drink each day. Lifestyle ??? If you drink alcohol: ? Limit how much you have to: ? 0?1 drink a day for women who are not . ? 0?2 drinks a day for men. ? Know how much alcohol is in your drink. In the [place] one drink equals one 12 oz bottle of beer (355mL), one 5 oz glass of wine (148mL), or one 1? oz glass of hard liquor (44mL). ??? Do not smoke or use any products that have nicotine or tobacco. If you need help quitting, ask your doctor. ??? Avoid secondhand smoke. ??? Do not use drugs. Activity ??? Try to stay at a healthy weight. ??? Get at least 30 minutes of exercise on most days, such as: ? Fast walking. ? Biking. ? Swimming. Medicines ??? Take poaf-mtf-paltepb and prescription medicines only as told by your doctor. ??? Avoid taking control pills. Talk to your doctor about the risks of taking control pills if: ? You are over 35 years old. ? You smoke. ? You get very bad headaches. ? You have had a blood clot. Where to find more information ??? [place] [employer] Association: www.strokeassociation.org Get help right away if: ??? You or a loved one has any signs of a stroke. BE FAST is an easy way to remember the warning signs: ? B - Balance. Dizziness, sudden trouble walking, or loss of balance. ? E - Eyes. Trouble seeing or a change in how you see. ? F - Face. Sudden weakness or loss of feeling of the face. The face or eyelid may droop on one side. ? A - Arms. Weakness or loss of feeling in an arm. This happens all of a sudden and most often on one side of the body. ? S - Speech. Sudden trouble speaking, slurred speech, or trouble understanding what people say. ? (more content not included)... [facility] 07-04-2025 Note Patient Education Nephrology Hyponatremia Hyponatremia is [...] Follow these instructions at home: ??? Take nhyf-qlw-kpnbmir and prescription medicines only as told by [...] provider. Document Revised: 05/11/2022 Document Reviewed: 05/11/2022 [employer] Patient Education ? 2023 CSS99. [facility] 06-23-2025 Nurse Note Patient discharged to the [facility] at this time. Report called and questions addressed. PIV and tele discontinued. All personal belongings packed and left with patient. Report given to transport as well. No other concerns at this time. Left on stretcher [facility] 06-23-2025 Nurse Note Patient discharged to the [facility] at this time. Report called and questions addressed. PIV and tele discontinued. All personal belongings packed and left with patient. Report given to transport as well. No other concerns at this time. Left on stretcher Per Dr Crisostomo, restart the heparin drip at this time, CTB negative. Restart at prior rate. Recheck antixa in 6 hours. In chair, alert and responding. BP 98/65. Dr Crisostomo returns page and updated on events. Working with physical and occupational therapy. Ambulated to bathroom, had been alert and conversing, suddenly became unresponsive, staring and leaning to left. Resolved after 2-3 minutes, then more alert and was able to state name. Assisted to chair. Dr Crisostomo paged. RN concerned as patient is extremely drowsy not following commands or speaking, RN called neuro resident Dr. Davis who states she thinks patient is just tired and will re assess later. Patient confused, on heparin drip, constantly trying to get out of bed, hitting, kicking and trying to bite staff. Unable to follow direction. Dr Davis notified, says will order seroquel. Notified of QT from EKG done 06/17 at [place]. documented in this encounter [facility] 06-23-2025 Plan of care note Problem: Pain Goal: Patient goal is pain score less than 4, able to rest, and participant in treatment plan as appropriate Description: INTERVENTIONS: 1. Encourage patient or legal personal banking representative to report early pain and ask for pain medicine when needed 2. Assess pain using appropriate pain scale and include the scale used when documenting 3. Administer analgesics based on type and severity of pain and evaluate response within appropriate time frame 4. Implement non-pharmacological measures as appropriate and evaluate response 5. Consider cultural and social influences on pain and pain management 6. Notify LIP if interventions ineffective or patient reports new pain 7. Monitor vital signs including pulse ox, end-tidal CO2 based on pain intervention 8. Reassess pain per policy 9. Teach patient or legal personal banking representative interventions for comforting Outcome: Adequate for Discharge Problem: Safety Goal: Patient will be injury free during hospitalization Description: INTERVENTIONS: 1. Assess patient's risk for falls and implement fall prevention plan of care per policy 2. Provide and maintain a safe environment 3. Proper use of double Identifiers 4. Medication administration using the 5 rights 5. Hand hygiene 6. Specimens are labeled at the bedside 7. Instruct patient/ patient personal banking representative about use of safety devices 8. Include patient/ patient personal banking representative in decisions related to safety Outcome: Adequate for Discharge Problem: Infection Goal: Absence of infection during hospitalization Description: INTERVENTIONS 1. Assess and monitor for signs and symptoms of infection. 2. Monitor lab/diagnostic results. 3. Monitor all insertion sites i.e., indwelling lines, tubes and drains. 4. Monitor endotracheal (as able) and nasal secretions for changes in amount and color. 5. Administer medications as ordered. 6. Instruct and encourage patient and family to use good hand hygiene technique. 7. Identify and instruct patient/patient personal banking representative in use of appropriate isolation precautions for identified infection/symptoms. 8. Provide and discuss with patient/patient personal banking representative on educational MDRO sheet. 9. Encourage and monitor nutritional status daily and consult water commissioner if indicated. 10. Implement neutropenic guidelines as needed. Outcome: Adequate for Discharge Problem: Knowledge Deficit Goal: Patient/patient personal banking representative demonstrates understanding of disease process, treatment plan, medications, and discharge instructions Description: INTERVENTIONS 1. Complete learning assessment and assess knowledge base 2. Provide teaching at level of understanding 3. Provide teaching via preferred learning method(s) Outcome: Adequate for Discharge Problem: Discharge Planning Goal: Discharge to post-acute care, other facility, or home with appropriate resources Description: Patient's goal is: INTERVENTIONS 1. Conduct assessment to determine patient/family and health care team treatment goals, and need for post-acute services based on payer coverage, community resources, and patient preferences, and barriers to discharge 2. Coordinate with Social work, Care Navigation, and Utilization Review to arrange appropriate level of services according to patient's needs based on patient preference and payer coverage in collaboration with the physician and health care team 3. Address psychosocial, clinical, and financial barriers to discharge as identified in assessment in conjunction with the patient/family and health care team 4. Consult appropriate ancillary services (i.e.. PT/OT/ST, etc) as needed 5. Communicate with and update the patient/family, physician, and health care team regarding progress on the discharge plan 6. Identify discharge learning needs (meds, wound care, etc). 7. Arrange for needed discharge transportation as appropriate Outcome: Adequate for Discharge Problem: Potential for Compromised Skin Integrity Goal: Skin integrity is maintained or improved Description: Patient's goal is: INTERVENTIONS 1. Perform initial skin assessment on admission and as needed 2. Turn patient every 2 hours and PRN 3. Relieve pressure to bony prominences 4. Avoid shearing 5. Keep skin clean and dry 6. Alternate a full bath with partial baths for elderly 7. Apply lotion/moisturizer on skin 8. Monitor patient's hygiene practices 9. Float heels 10. Collaborate with interdisciplinary team and initiate plans and interventions as needed Outcome: Adequate for Discharge Goal: Patient's nutritional intake is adequate Description: Patient's goal is: INTERVENTIONS 1. Assess and monitor food intake and supplements, patient food preferences, nausea, vomiting, labs, oral cavity (gums, teeth, tongue, mucosa), proper denture fit, and cultural beliefs 2. Monitor for signs of hypoglycemia and hyperglycemia 3. Collaborate with interdisciplinary team and initiate plan and interventions as ordered 4. Monitor patient's weight 5. Assist patient with meals/food selection 6. Assist patient with eating 7. Allow adequate time for meals 8. Provide pleasant environment during mealtime 9. Increase social contact during mealtimes 10. Plan activities to conserve energy 11. Encourage/perform oral hygiene as appropriate 12. Encourage patient to take dietary supplement as ordered 13. Collaborate with clinical water commissioner 14. Include patient/ patient's personal banking representative in decisions related to nutrition Outcome: Adequate for Discharge Problem: Urinary Incontinence Goal: Perineal skin integrity is maintained or improved Description: INTERVENTIONS 1. Assess genitourinary system, perineal skin, labs (urinalysis), and history of incontinence to include past management, aggravating, and alleviating factors 2. Keep skin clean and dry 3. Apply skin protectant 4. Develop skin care regimen 5. Provide privacy when changing patients incontinence device to maintain their dignity 6. Consider placing an indwelling catheter 7. Collaborate with interdisciplinary team and initiate plans and interventions as needed Outcome: Adequate for Discharge Problem: Neurological Deficit Goal: Neurological status is stable or improving Description: Patient's goal is: INTERVENTIONS 1. Complete Neurological assessment as indicated/ordered 2. Initiate measures to prevent increased intracranial pressure 3. Monitor and assess patient's level of consciousness, motor function, sensory function, and level of assistance needed for ADLs 4. Monitor and report changes from baseline 5. Maintain blood pressure and fluid volume within ordered parameters to optimize cerebral perfusion and minimize risk of hemorrhage 6. Monitor labs and diagnostic tests 7. Administer anti-seizure medications as ordered 8. Maintain airway, patient safety and administer oxygen as ordered 9. Monitor patient for seizure activity, document and report duration and description of seizure to LIP 10. If seizure occurs, turn patient to side and suction secretions as needed 11. Reorient patient post seizure 12. Seizure pads on all 4 side rails 13. Instruct patient/family to notify RN of any seizure activity 14. Instruct patient/family to call for assistance with activity based on assessment 15. Utilize bleeding precautions if thrombolytic given Outcome: Adequate for Discharge Problem: Activity Intolerance/Impaired Mobility Goal: Mobility/activity is maintained at optimum level for patient Description: Patient's goal is: INTERVENTIONS 1. Assess and monitor patient barriers to mobility and need for assistive/adaptive devices 2. Assess patient's emotional response to limitations 3. Collaborate with interdisciplinary teams and initiate plans and interventions as ordered 4. Encourage independent activity per tolerance 5. Maintain proper body alignment 6. Perform active/passive ROM as tolerated/ordered 7. Coordinate activities to conserve energy 8. Reposition patient 9. Ensure adequate rest/sleep time Outcome: Adequate for Discharge Problem: Communication Impairment Goal: Ability to express needs and understand communication Description: INTERVENTIONS 1. Assess patient's communication skills and ability to understand information 2. Provide alternate method of communication if needed i.e. ipad, sign board, pen/paper 3. Collaborate with Speech Therapy to develop effective communication strategies 4. Include patient/patient personal banking representative in decisions related to communication Outcome: Adequate for Discharge Problem: Potential for Aspiration Goal: Patient's risk of aspiration is minimized Description: INTERVENTIONS 1. Assess and monitor vital signs, respiratory status, and labs (WBC) 2. Monitor for signs of aspiration (tachypnea, cough, rales, wheezing, cyanosis, fever) 3. Assess and monitor patient's ability to swallow 4. Place patient up in chair to eat if possible 5. Elevate head of bed 90 degrees to eat if unable to get patient up into chair 6. Supervise patient during oral intake 7. Instruct patient to take small bites 8. Instruct patient to take small single sips when taking liquids 9. Follow patient-specific strategies generated by speech pathologist 10. Complete bedside swallow screen if appropriate and take actions as indicated. 11. Administer prescribed medications and monitor effects Outcome: Adequate for Discharge Problem: Anxiety Goal: Anxiety is at manageable level Description: Patient's goal is: INTERVENTIONS 1. Assess and monitor patient's anxiety level 2. Monitor for signs and symptoms of anxiety both physical and emotional (heart palpitations, chest pain, shortness of breath, headaches, nausea, feeling jumpy, restlessness, irritable, apprehensive) 3. Reorient/orient patient to unit/surroundings 4. Explain treatment plan 5. Explain tests/procedures prior to initiation 6. Encourage participation in care 7. Encourage verbalization of concerns/fears 8. Assess coping mechanisms 9. Assist in developing anxiety-reducing skills 10. Administer complimentary therapies 11. Manage patient's environment 12. Limit or eliminate stimulants such as caffeine and nicotine 13. Collaborate with ancillary departments 14. Include patient/patient personal banking representative in decisions related to anxiety Outcome: Adequate for Discharge Problem: Inadequate Coping Goal: Demonstrates and verbalizes ability to cope effectively Description: Patient's goal is: INTERVENTIONS 1. Patient is able to verbalize feelings related to emotional state 2. Encourage verbalization of feelings, perceptions, fears, stressors, loss of loved ones 3. Encourage verbalization of problems out of their control 4. Encourage participation in care and self management 5. Inform patient of all treatment/care prior to providing care 6. Collaborate with pastoral/spiritual care, social scientist, mental health counselor as needed. 7. Instruct patient on diversional activities such as physical activity, distraction, and deep breathing exercises to assist with coping 8. Involve patient's personal banking representative in care Outcome: Adequate for Discharge Problem: Potential for Inadequate Tissue Perfusion - Venous Goal: Tissue perfusion is adequate - venous Description: Patient's goal is: INTERVENTIONS 1. Assess and monitor skin color and temperature, skin integrity, pulses, capillary refill, edema, pain in extremities and Homans' sign 2. Monitor for signs and symptoms (dyspnea, tachypnea, and tachycardia) 3. Encourage ambulation/activity per patient's tolerance and physician order 4. Elevate feet when in chair 5. Encourage patient to do ankle pump exercises 6. Apply anti-embolism stockings/devices as ordered Outcome: Adequate for Discharge Problem: Self Care Deficit Goal: Return ADL status to a safe level of function Description: Patient's goal is: INTERVENTIONS 1. Administer medication as ordered 2. Assess ADL deficits and provide assistive devices as needed 3. Obtain PT/OT consults as needed 4. Assist and instruct patient to increase activity and self care as tolerated Outcome: Adequate for Discharge Problem: Moderate - High Risk Fall Score Description: [place] Fall Score of =/> 25 or indicated by [facility] Assessment Goal: Patient should be free from fall Description: Interventions: 1. [place] to environment 2. Hourly rounds addressing the 4 P's (Pain, Positioning, Possessions, Potty) 3. Clear area of hazards (spills, clutter, electrical cords, unnecessary equipment) 4. Place equipment (bed & TV controls, call light, phone, urinal) within reach 5. Encourage patient to wear glasses and hearing aides as appropriate 6. Maintain bed in lowest position 7. Lock wheels on bed/wheelchair 8. Provide adequate lighting, including night light 9. Assess need for additional bedding, food/fluids, pain med's prior to sleep/routinely 10. Provide gripper slippers or personal non-skid footwear 11. Teach patient and patient personal banking representative to maintain environment for safety and engage in all aspects of fall prevention program 12. Remind patient to call for help before getting out of bed 13. Initiate bed/chair/exit alarms supportive devices as appropriate, (chair wedge, no-skid floor mat, raised edge mattress, hip protectors) 14. Locate patient bed assignment for optimal visualization 15. Evaluate and identify Safe Patient Handling Equipment needs 16. Provide supervision when out of bed or chair 17. Utilize gait belt as needed to assist with ambulation 18. Place adaptive equipment (cane, walker) within reach 19. Request patient personal banking representative bring adaptive equipment/mobility aids from home or obtain and provide as needed 20. Consult pharmacy regarding effects of med's affecting mobility, cognition, and alternatives 21. Obtain physician order for PT if risk factors associated with mobility are present 22. Obtain physician order for OT as appropriate 23. Utilize diversional activities 24. Educate patient and patient personal banking representative how to maintain a safe environment during visitation times (notify nurse prior to leaving bedside) 25. Consider appropriateness of medical or non-biomedical electronics technician 26. Set up voiding schedule as appropriate (every 2 hours) Outcome: Adequate for Discharge [facility] 06-23-2025 Miscellaneous Notes Problem: Pain Goal: Patient goal is pain score less than 4, able to rest, and participant in treatment plan as appropriate Description: INTERVENTIONS: 1. Encourage patient or legal personal banking representative to report early pain and ask for pain medicine when needed 2. Assess pain using appropriate pain scale and include the scale used when documenting 3. Administer analgesics based on type and severity of pain and evaluate response within appropriate time frame 4. Implement non-pharmacological measures as appropriate and evaluate response 5. Consider cultural and social influences on pain and pain management 6. Notify LIP if interventions ineffective or patient reports new pain 7. Monitor vital signs including pulse ox, end-tidal CO2 based on pain intervention 8. Reassess pain per policy 9. Teach patient or legal personal banking representative interventions for comforting Outcome: Adequate for Discharge Problem: Safety Goal: Patient will be injury free during hospitalization Description: INTERVENTIONS: 1. Assess patient's risk for falls and implement fall prevention plan of care per policy 2. Provide and maintain a safe environment 3. Proper use of double Identifiers 4. Medication administration using the 5 rights 5. Hand hygiene 6. Specimens are labeled at the bedside 7. Instruct patient/ patient personal banking representative about use of safety devices 8. Include patient/ patient personal banking representative in decisions related to safety Outcome: Adequate for Discharge Problem: Infection Goal: Absence of infection during hospitalization Description: INTERVENTIONS 1. Assess and monitor for signs and symptoms of infection. 2. Monitor lab/diagnostic results. 3. Monitor all insertion sites i.e., indwelling lines, tubes and drains. 4. Monitor endotracheal (as able) and nasal secretions for changes in amount and color. 5. Administer medications as ordered. 6. Instruct and encourage patient and family to use good hand hygiene technique. 7. Identify and instruct patient/patient personal banking representative in use of appropriate isolation precautions for identified infection/symptoms. 8. Provide and discuss with patient/patient personal banking representative on educational MDRO sheet. 9. Encourage and monitor nutritional status daily and consult water commissioner if indicated. 10. Implement neutropenic guidelines as needed. Outcome: Adequate for Discharge Problem: Knowledge Deficit Goal: Patient/patient personal banking representative demonstrates understanding of disease process, treatment plan, medications, and discharge instructions Description: INTERVENTIONS 1. Complete learning assessment and assess knowledge base 2. Provide teaching at level of understanding 3. Provide teaching via preferred learning method(s) Outcome: Adequate for Discharge Problem: Discharge Planning Goal: Discharge to post-acute care, other facility, or home with appropriate resources Description: Patient's goal is: INTERVENTIONS 1. Conduct assessment to determine patient/family and health care team treatment goals, and need for post-acute services based on payer coverage, community resources, and patient preferences, and barriers to discharge 2. Coordinate with Social work, Care Navigation, and Utilization Review to arrange appropriate level of services according to patient's needs based on patient preference and payer coverage in collaboration with the physician and health care team 3. Address psychosocial, clinical, and financial barriers to discharge as identified in assessment in conjunction with the patient/family and health care team 4. Consult appropriate ancillary services (i.e.. PT/OT/ST, etc) as needed 5. Communicate with and update the patient/family, physician, and health care team regarding progress on the discharge plan 6. Identify discharge learning needs (meds, wound care, etc). 7. Arrange for needed discharge transportation as appropriate Outcome: Adequate for Discharge Problem: Potential for Compromised Skin Integrity Goal: Skin integrity is maintained or improved Description: Patient's goal is: INTERVENTIONS 1. Perform initial skin assessment on admission and as needed 2. Turn patient every 2 hours and PRN 3. Relieve pressure to bony prominences 4. Avoid shearing 5. Keep skin clean and dry 6. Alternate a full bath with partial baths for elderly 7. Apply lotion/moisturizer on skin 8. Monitor patient's hygiene practices 9. Float heels 10. Collaborate with interdisciplinary team and initiate plans and interventions as needed Outcome: Adequate for Discharge Goal: Patient's nutritional intake is adequate Description: Patient's goal is: INTERVENTIONS 1. Assess and monitor food intake and supplements, patient food preferences, nausea, vomiting, labs, oral cavity (gums, teeth, tongue, mucosa), proper denture fit, and cultural beliefs 2. Monitor for signs of hypoglycemia and hyperglycemia 3. Collaborate with interdisciplinary team and initiate plan and interventions as ordered 4. Monitor patient's weight 5. Assist patient with meals/food selection 6. Assist patient with eating 7. Allow adequate time for meals 8. Provide pleasant environment during mealtime 9. Increase social contact during mealtimes 10. Plan activities to conserve energy 11. Encourage/perform oral hygiene as appropriate 12. Encourage patient to take dietary supplement as ordered 13. Collaborate with clinical water commissioner 14. Include patient/ patient's personal banking representative in decisions related to nutrition Outcome: Adequate for Discharge Problem: Urinary Incontinence Goal: Perineal skin integrity is maintained or improved Description: INTERVENTIONS 1. Assess genitourinary system, perineal skin, labs (urinalysis), and history of incontinence to include past management, aggravating, and alleviating factors 2. Keep skin clean and dry 3. Apply skin protectant 4. Develop skin care regimen 5. Provide privacy when changing patients incontinence device to maintain their dignity 6. Consider placing an indwelling catheter 7. Collaborate with interdisciplinary team and initiate plans and interventions as needed Outcome: Adequate for Discharge Problem: Neurological Deficit Goal: Neurological status is stable or improving Description: Patient's goal is: INTERVENTIONS 1. Complete Neurological assessment as indicated/ordered 2. Initiate measures to prevent increased intracranial pressure 3. Monitor and assess patient's level of consciousness, motor function, sensory function, and level of assistance needed for ADLs 4. Monitor and report changes from baseline 5. Maintain blood pressure and fluid volume within ordered parameters to optimize cerebral perfusion and minimize risk of hemorrhage 6. Monitor labs and diagnostic tests 7. Administer anti-seizure medications as ordered 8. Maintain airway, patient safety and administer oxygen as ordered 9. Monitor patient for seizure activity, document and report duration and description of seizure to LIP 10. If seizure occurs, turn patient to side and suction secretions as needed 11. Reorient patient post seizure 12. Seizure pads on all 4 side rails 13. Instruct patient/family to notify RN of any seizure activity 14. Instruct patient/family to call for assistance with activity based on assessment 15. Utilize bleeding precautions if thrombolytic given Outcome: Adequate for Discharge Problem: Activity Intolerance/Impaired Mobility Goal: Mobility/activity is maintained at optimum level for patient Description: Patient's goal is: INTERVENTIONS 1. Assess and monitor patient barriers to mobility and need for assistive/adaptive devices 2. Assess patient's emotional response to limitations 3. Collaborate with interdisciplinary teams and initiate plans and interventions as ordered 4. Encourage independent activity per tolerance 5. Maintain proper body alignment 6. Perform active/passive ROM as tolerated/ordered 7. Coordinate activities to conserve energy 8. Reposition patient 9. Ensure adequate rest/sleep time Outcome: Adequate for Discharge Problem: Communication Impairment Goal: Ability to express needs and understand communication Description: INTERVENTIONS 1. Assess patient's communication skills and ability to understand information 2. Provide alternate method of communication if needed i.e. ipad, sign board, pen/paper 3. Collaborate with Speech Therapy to develop effective communication strategies 4. Include patient/patient personal banking representative in decisions related to communication Outcome: Adequate for Discharge Problem: Potential for Aspiration Goal: Patient's risk of aspiration is minimized Description: INTERVENTIONS 1. Assess and monitor vital signs, respiratory status, and labs (WBC) 2. Monitor for signs of aspiration (tachypnea, cough, rales, wheezing, cyanosis, fever) 3. Assess and monitor patient's ability to swallow 4. Place patient up in chair to eat if possible 5. Elevate head of bed 90 degrees to eat if unable to get patient up into chair 6. Supervise patient during oral intake 7. Instruct patient to take small bites 8. Instruct patient to take small single sips when taking liquids 9. Follow patient-specific strategies generated by speech pathologist 10. Complete bedside swallow screen if appropriate and take actions as indicated. 11. Administer prescribed medications and monitor effects Outcome: Adequate for Discharge Problem: Anxiety Goal: Anxiety is at manageable level Description: Patient's goal is: INTERVENTIONS 1. Assess and monitor patient's anxiety level 2. Monitor for signs and symptoms of anxiety both physical and emotional (heart palpitations, chest pain, shortness of breath, headaches, nausea, feeling jumpy, restlessness, irritable, apprehensive) 3. Reorient/orient patient to unit/surroundings 4. Explain treatment plan 5. Explain tests/procedures prior to initiation 6. Encourage participation in care 7. Encourage verbalization of concerns/fears 8. Assess coping mechanisms 9. Assist in developing anxiety-reducing skills 10. Administer complimentary therapies 11. Manage patient's environment 12. Limit or eliminate stimulants such as caffeine and nicotine 13. Collaborate with ancillary departments 14. Include patient/patient personal banking representative in decisions related to anxiety Outcome: Adequate for Discharge Problem: Inadequate Coping Goal: Demonstrates and verbalizes ability to cope effectively Description: Patient's goal is: INTERVENTIONS 1. Patient is able to verbalize feelings related to emotional state 2. Encourage verbalization of feelings, perceptions, fears, stressors, loss of loved ones 3. Encourage verbalization of problems out of their control 4. Encourage participation in care and self management 5. Inform patient of all treatment/care prior to providing care 6. Collaborate with pastoral/spiritual care, social scientist, mental health counselor as needed. 7. Instruct patient on diversional activities such as physical activity, distraction, and deep breathing exercises to assist with coping 8. Involve patient's personal banking representative in care Outcome: Adequate for Discharge Problem: Potential for Inadequate Tissue Perfusion - Venous Goal: Tissue perfusion is adequate - venous Description: Patient's goal is: INTERVENTIONS 1. Assess and monitor skin color and temperature, skin integrity, pulses, capillary refill, edema, pain in extremities and Homans' sign 2. Monitor for signs and symptoms (dyspnea, tachypnea, and tachycardia) 3. Encourage ambulation/activity per patient's tolerance and physician order 4. Elevate feet when in chair 5. Encourage patient to do ankle pump exercises 6. Apply anti-embolism stockings/devices as ordered Outcome: Adequate for Discharge Problem: Self Care Deficit Goal: Return ADL status to a safe level of function Description: Patient's goal is: INTERVENTIONS 1. Administer medication as ordered 2. Assess ADL deficits and provide assistive devices as needed 3. Obtain PT/OT consults as needed 4. Assist and instruct patient to increase activity and self care as tolerated Outcome: Adequate for Discharge Problem: Moderate - High Risk Fall Score Description: [place] Fall Score of =/> 25 or indicated by [facility] Assessment Goal: Patient should be free from fall Description: Interventions: 1. [place] to environment 2. Hourly rounds addressing the 4 P's (Pain, Positioning, Possessions, Potty) 3. Clear area of hazards (spills, clutter, electrical cords, unnecessary equipment) 4. Place equipment (bed & TV controls, call light, phone, urinal) within reach 5. Encourage patient to wear glasses and hearing aides as appropriate 6. Maintain bed in lowest position 7. Lock wheels on bed/wheelchair 8. Provide adequate lighting, including night light 9. Assess need for additional bedding, food/fluids, pain med's prior to sleep/routinely 10. Provide gripper slippers or personal non-skid footwear 11. Teach patient and patient personal banking representative to maintain environment for safety and engage in all aspects of fall prevention program 12. Remind patient to call for help before getting out of bed 13. Initiate bed/chair/exit alarms supportive devices as appropriate, (chair wedge, no-skid floor mat, raised edge mattress, hip protectors) 14. Locate patient bed assignment for optimal visualization 15. Evaluate and identify Safe Patient Handling Equipment needs 16. Provide supervision when out of bed or chair 17. Utilize gait belt as needed to assist with ambulation 18. Place adaptive equipment (cane, walker) within reach 19. Request patient personal banking representative bring adaptive equipment/mobility aids from home or obtain and provide as needed 20. Consult pharmacy regarding effects of med's affecting mobility, cognition, and alternatives 21. Obtain physician order for PT if risk factors associated with mobility are present 22. Obtain physician order for OT as appropriate 23. Utilize diversional activities 24. Educate patient and patient personal banking representative how to maintain a safe environment during visitation times (notify nurse prior to leaving bedside) 25. Consider appropriateness of medical or non-biomedical electronics technician 26. Set up voiding schedule as appropriate (every 2 hours) Outcome: Adequate for Discharge DISCHARGE PLANNING NOTE BLS via PTN scheduled for today 06/23/25 at 1 PM to [facility]. Confirmed in [facility]. DISCHARGE PLANNING NOTE Discharge written, CRF complete. Social work task [facility] to arrange S transport- wait confirmed time. [facility] notified of discharge and CRF sent. HENS submitted. is aware and agreeable to transition plan. RN updated. - CHARLES LEE 06/23/25 10:42 AM Problem: Pain Goal: Patient goal is pain score less than 4, able to rest, and participant in treatment plan as appropriate Description: INTERVENTIONS: 1. Encourage patient or legal personal banking representative to report early pain and ask for pain medicine when needed 2. Assess pain using appropriate pain scale and include the scale used when documenting 3. Administer analgesics based on type and severity of pain and evaluate response within appropriate time frame 4. Implement non-pharmacological measures as appropriate and evaluate response 5. Consider cultural and social influences on pain and pain management 6. Notify LIP if interventions ineffective or patient reports new pain 7. Monitor vital signs including pulse ox, end-tidal CO2 based on pain intervention 8. Reassess pain per policy 9. Teach patient or legal personal banking representative interventions for comforting 06/23/2025 0628 by ERIN Mcmanus Outcome: Progressing Note: Evaluation of progress towards goal: 06/23/2025 0618 by ERIN Mcmanus Outcome: Progressing Note: Evaluation of progress towards goal: no complaints of pain this shift; continue to monitor and reassess Problem: Safety Goal: Patient will be injury free during hospitalization Description: INTERVENTIONS: 1. Assess patient's risk for falls and implement fall prevention plan of care per policy 2. Provide and maintain a safe environment 3. Proper use of double Identifiers 4. Medication administration using the 5 rights 5. Hand hygiene 6. Specimens are labeled at the bedside 7. Instruct patient/ patient personal banking representative about use of safety devices 8. Include patient/ patient personal banking representative in decisions related to safety Outcome: Progressing Note: Evaluation of progress towards goal: Safety measures maintained Problem: Infection Goal: Absence of infection during hospitalization Description: INTERVENTIONS 1. Assess and monitor for signs and symptoms of infection. 2. Monitor lab/diagnostic results. 3. Monitor all insertion sites i.e., indwelling lines, tubes and drains. 4. Monitor endotracheal (as able) and nasal secretions for changes in amount and color. 5. Administer medications as ordered. 6. Instruct and encourage patient and family to use good hand hygiene technique. 7. Identify and instruct patient/patient personal banking representative in use of appropriate isolation precautions for identified infection/symptoms. 8. Provide and discuss with patient/patient personal banking representative on educational MDRO sheet. 9. Encourage and monitor nutritional status daily and consult water commissioner if indicated. 10. Implement neutropenic guidelines as needed. Outcome: Progressing Note: Evaluation of progress towards goal: Standard precaution maintained Problem: Knowledge Deficit Goal: Patient/patient personal banking representative demonstrates understanding of disease process, treatment plan, medications, and discharge instructions Description: INTERVENTIONS 1. Complete learning assessment and assess knowledge base 2. Provide teaching at level of understanding 3. Provide teaching via preferred learning method(s) Outcome: Progressing Note: Evaluation of progress towards goal: Problem: Discharge Planning Goal: Discharge to post-acute care, other facility, or home with appropriate resources Description: Patient's goal is: INTERVENTIONS 1. Conduct assessment to determine patient/family and health care team treatment goals, and need for post-acute services based on payer coverage, community resources, and patient preferences, and barriers to discharge 2. Coordinate with Social work, Care Navigation, and Utilization Review to arrange appropriate level of services according to patient's needs based on patient preference and payer coverage in collaboration with the physician and health care team 3. Address psychosocial, clinical, and financial barriers to discharge as identified in assessment in conjunction with the patient/family and health care team 4. Consult appropriate ancillary services (i.e.. PT/OT/ST, etc) as needed 5. Communicate with and update the patient/family, physician, and health care team regarding progress on the discharge plan 6. Identify discharge learning needs (meds, wound care, etc). 7. Arrange for needed discharge transportation as appropriate Outcome: Progressing Note: Evaluation of progress towards goal: in progress Problem: Potential for Compromised Skin Integrity Goal: Skin integrity is maintained or improved Description: Patient's goal is: INTERVENTIONS 1. Perform initial skin assessment on admission and as needed 2. Turn patient every 2 hours and PRN 3. Relieve pressure to bony prominences 4. Avoid shearing 5. Keep skin clean and dry 6. Alternate a full bath with partial baths for elderly 7. Apply lotion/moisturizer on skin 8. Monitor patient's hygiene practices 9. Float heels 10. Collaborate with interdisciplinary team and initiate plans and interventions as needed Outcome: Progressing Note: Evaluation of progress towards goal: skin intact and dry Goal: Patient's nutritional intake is adequate Description: Patient's goal is: INTERVENTIONS 1. Assess and monitor food intake and supplements, patient food preferences, nausea, vomiting, labs, oral cavity (gums, teeth, tongue, mucosa), proper denture fit, and cultural beliefs 2. Monitor for signs of hypoglycemia and hyperglycemia 3. Collaborate with interdisciplinary team and initiate plan and interventions as ordered 4. Monitor patient's weight 5. Assist patient with meals/food selection 6. Assist patient with eating 7. Allow adequate time for meals 8. Provide pleasant environment during mealtime 9. Increase social contact during mealtimes 10. Plan activities to conserve energy 11. Encourage/perform oral hygiene as appropriate 12. Encourage patient to take dietary supplement as ordered 13. Collaborate with clinical water commissioner 14. Include patient/ patient's personal banking representative in decisions related to nutrition Outcome: Progressing Note: Evaluation of progress towards goal: adequate with 1800 fluid restriction Problem: Urinary Incontinence Goal: Perineal skin integrity is maintained or improved Description: INTERVENTIONS 1. Assess genitourinary system, perineal skin, labs (urinalysis), and history of incontinence to include past management, aggravating, and alleviating factors 2. Keep skin clean and dry 3. Apply skin protectant 4. Develop skin care regimen 5. Provide privacy when changing patients incontinence device to maintain their dignity 6. Consider placing an indwelling catheter 7. Collaborate with interdisciplinary team and initiate plans and interventions as needed Outcome: Progressing Note: Evaluation of progress towards goal: able to verbalize urgency and uses urinal Problem: Neurological Deficit Goal: Neurological status is stable or improving Description: Patient's goal is: INTERVENTIONS 1. Complete Neurological assessment as indicated/ordered 2. Initiate measures to prevent increased intracranial pressure 3. Monitor and assess patient's level of consciousness, motor function, sensory function, and level of assistance needed for ADLs 4. Monitor and report changes from baseline 5. Maintain blood pressure and fluid volume within ordered parameters to optimize cerebral perfusion and minimize risk of hemorrhage 6. Monitor labs and diagnostic tests 7. Administer anti-seizure medications as ordered 8. Maintain airway, patient safety and administer oxygen as ordered 9. Monitor patient for seizure activity, document and report duration and description of seizure to LIP 10. If seizure occurs, turn patient to side and suction secretions as needed 11. Reorient patient post seizure 12. Seizure pads on all 4 side rails 13. Instruct patient/family to notify RN of any seizure activity 14. Instruct patient/family to call for assistance with activity based on assessment 15. Utilize bleeding precautions if thrombolytic given Outcome: Progressing Note: Evaluation of progress towards goal: Problem: Activity Intolerance/Impaired Mobility Goal: Mobility/activity is maintained at optimum level for patient Description: Patient's goal is: INTERVENTIONS 1. Assess and monitor patient barriers to mobility and need for assistive/adaptive devices 2. Assess patient's emotional response to limitations 3. Collaborate with interdisciplinary teams and initiate plans and interventions as ordered 4. Encourage independent activity per tolerance 5. Maintain proper body alignment 6. Perform active/passive ROM as tolerated/ordered 7. Coordinate activities to conserve energy 8. Reposition patient 9. Ensure adequate rest/sleep time Outcome: Progressing Note: Evaluation of progress towards goal: working with pt/ot to gain stability and strength Problem: Communication Impairment Goal: Ability to express needs and understand communication Description: INTERVENTIONS 1. Assess patient's communication skills and ability to understand information 2. Provide alternate method of communication if needed i.e. ipad, sign board, pen/paper 3. Collaborate with Speech Therapy to develop effective communication strategies 4. Include patient/patient personal banking representative in decisions related to communication Outcome: Progressing Note: Evaluation of progress towards goal: able to communicate wants Problem: Potential for Aspiration Goal: Patient's risk of aspiration is minimized Description: INTERVENTIONS 1. Assess and monitor vital signs, respiratory status, and labs (WBC) 2. Monitor for signs of aspiration (tachypnea, cough, rales, wheezing, cyanosis, fever) 3. Assess and monitor patient's ability to swallow 4. Place patient up in chair to eat if possible 5. Elevate head of bed 90 degrees to eat if unable to get patient up into chair 6. Supervise patient during oral intake 7. Instruct patient to take small bites 8. Instruct patient to take small single sips when taking liquids 9. Follow patient-specific strategies generated by speech pathologist 10. Complete bedside swallow screen if appropriate and take actions as indicated. 11. Administer prescribed medications and monitor effects Outcome: Progressing Note: Evaluation of progress towards goal: Problem: Anxiety Goal: Anxiety is at manageable level Description: Patient's goal is: INTERVENTIONS 1. Assess and monitor patient's anxiety level 2. Monitor for signs and symptoms of anxiety both physical and emotional (heart palpitations, chest pain, shortness of breath, headaches, nausea, feeling jumpy, restlessness, irritable, apprehensive) 3. Reorient/orient patient to unit/surroundings 4. Explain treatment plan 5. Explain tests/procedures prior to initiation 6. Encourage participation in care 7. Encourage verbalization of concerns/fears 8. Assess coping mechanisms 9. Assist in developing anxiety-reducing skills 10. Administer complimentary therapies 11. Manage patient's environment 12. Limit or eliminate stimulants such as caffeine and nicotine 13. Collaborate with ancillary departments 14. Include patient/patient personal banking representative in decisions related to anxiety Outcome: Progressing Note: Evaluation of progress towards goal: no s/s of anxiety Problem: Inadequate Coping Goal: Demonstrates and verbalizes ability to cope effectively Description: Patient's goal is: INTERVENTIONS 1. Patient is able to verbalize feelings related to emotional state 2. Encourage verbalization of feelings, perceptions, fears, stressors, loss of loved ones 3. Encourage verbalization of problems out of their control 4. Encourage participation in care and self management 5. Inform patient of all treatment/care prior to providing care 6. Collaborate with pastoral/spiritual care, social scientist, mental health counselor as needed. 7. Instruct patient on diversional activities such as physical activity, distraction, and deep breathing exercises to assist with coping 8. Involve patient's personal banking representative in care Outcome: Progressing Note: Evaluation of progress towards goal: Problem: Potential for Inadequate Tissue Perfusion - Venous Goal: Tissue perfusion is adequate - venous Description: Patient's goal is: INTERVENTIONS 1. Assess and monitor skin color and temperature, skin integrity, pulses, capillary refill, edema, pain in extremities and Homans' sign 2. Monitor for signs and symptoms (dyspnea, tachypnea, and tachycardia) 3. Encourage ambulation/activity per patient's tolerance and physician order 4. Elevate feet when in chair 5. Encourage patient to do ankle pump exercises 6. Apply anti-embolism stockings/devices as ordered Outcome: Progressing Note: Evaluation of progress towards goal: Problem: Self Care Deficit Goal: Return ADL status to a safe level of function Description: Patient's goal is: INTERVENTIONS 1. Administer medication as ordered 2. Assess ADL deficits and provide assistive devices as needed 3. Obtain PT/OT consults as needed 4. Assist and instruct patient to increase activity and self care as tolerated Outcome: Progressing Note: Evaluation of progress towards goal: pt working with py/ot Problem: Moderate - High Risk Fall Score Description: Valenzuela Fall Score of =/> 25 or indicated by [facility] Assessment Goal: Patient should be free from fall Description: Interventions: 1. [place] to environment 2. Hourly rounds addressing the 4 P's (Pain, Positioning, Possessions, Potty) 3. Clear area of hazards (spills, clutter, electrical cords, unnecessary equipment) 4. Place equipment (bed & TV controls, call light, phone, urinal) within reach 5. Encourage patient to wear glasses and hearing aides as appropriate 6. Maintain bed in lowest position 7. Lock wheels on bed/wheelchair 8. Provide adequate lighting, including night light 9. Assess need for additional bedding, food/fluids, pain med's prior to sleep/routinely 10. Provide gripper slippers or personal non-skid footwear 11. Teach patient and patient personal banking representative to maintain environment for safety and engage in all aspects of fall prevention program 12. Remind patient to call for help before getting out of bed 13. Initiate bed/chair/exit alarms supportive devices as appropriate, (chair wedge, no-skid floor mat, raised edge mattress, hip protectors) 14. Locate patient bed assignment for optimal visualization 15. Evaluate and identify Safe Patient Handling Equipment needs 16. Provide supervision when out of bed or chair 17. Utilize gait belt as needed to assist with ambulation 18. Place adaptive equipment (cane, walker) within reach 19. Request patient personal banking representative bring adaptive equipment/mobility aids from home or obtain and provide as needed 20. Consult pharmacy regarding effects of med's affecting mobility, cognition, and alternatives 21. Obtain physician order for PT if risk factors associated with mobility are present 22. Obtain physician order for OT as appropriate 23. Utilize diversional activities 24. Educate patient and patient personal banking representative how to maintain a safe environment during visitation times (notify nurse prior to leaving bedside) 25. Consider appropriateness of medical or non-biomedical electronics technician 26. Set up voiding schedule as appropriate (every 2 hours) Outcome: Progressing Note: Evaluation of progress towards goal: Fall bundles maintained Problem: Pain Goal: Patient goal is pain score less than 4, able to rest, and participant in treatment plan as appropriate Description: INTERVENTIONS: 1. Encourage patient or legal personal banking representative to report early pain and ask for pain medicine when needed 2. Assess pain using appropriate pain scale and include the scale used when documenting 3. Administer analgesics based on type and severity of pain and evaluate response within appropriate time frame 4. Implement non-pharmacological measures as appropriate and evaluate response 5. Consider cultural and social influences on pain and pain management 6. Notify LIP if interventions ineffective or patient reports new pain 7. Monitor vital signs including pulse ox, end-tidal CO2 based on pain intervention 8. Reassess pain per policy 9. Teach patient or legal personal banking representative interventions for comforting Outcome: Progressing Note: Evaluation of progress towards goal: no complaints of pain this shift; continue to monitor and reassess Problem: Safety Goal: Patient will be injury free during hospitalization Description: INTERVENTIONS: 1. Assess patient's risk for falls and implement fall prevention plan of care per policy 2. Provide and maintain a safe environment 3. Proper use of double Identifiers 4. Medication administration using the 5 rights 5. Hand hygiene 6. Specimens are labeled at the bedside 7. Instruct patient/ patient personal banking representative about use of safety devices 8. Include patient/ patient personal banking representative in decisions related to safety Outcome: Progressing Note: Evaluation of progress towards goal: no injuries; continue to maintain safety measures and fall prevention interventions Problem: Infection Goal: Absence of infection during hospitalization Description: INTERVENTIONS 1. Assess and monitor for signs and symptoms of infection. 2. Monitor lab/diagnostic results. 3. Monitor all insertion sites i.e., indwelling lines, tubes and drains. 4. Monitor endotracheal (as able) and nasal secretions for changes in amount and color. 5. Administer medications as ordered. 6. Instruct and encourage patient and family to use good hand hygiene technique. 7. Identify and instruct patient/patient personal banking representative in use of appropriate isolation precautions for identified infection/symptoms. 8. Provide and discuss with patient/patient personal banking representative on educational MDRO sheet. 9. Encourage and monitor nutritional status daily and consult water commissioner if indicated. 10. Implement neutropenic guidelines as needed. Outcome: Progressing Note: Evaluation of progress towards goal: continue to monitor labs, vitals, tele, IV site Problem: Knowledge Deficit Goal: Patient/patient personal banking representative demonstrates understanding of disease process, treatment plan, medications, and discharge instructions Description: INTERVENTIONS 1. Complete learning assessment and assess knowledge base 2. Provide teaching at level of understanding 3. Provide teaching via preferred learning method(s) Outcome: Progressing Note: Evaluation of progress towards goal: education provided, reinforce PRN; included via phone; questions addressed Problem: Discharge Planning Goal: Discharge to post-acute care, other facility, or home with appropriate resources Description: Patient's goal is: INTERVENTIONS 1. Conduct assessment to determine patient/family and health care team treatment goals, and need for post-acute services based on payer coverage, community resources, and patient preferences, and barriers to discharge 2. Coordinate with Social work, Care Navigation, and Utilization Review to arrange appropriate level of services according to patient's needs based on patient preference and payer coverage in collaboration with the physician and health care team 3. Address psychosocial, clinical, and financial barriers to discharge as identified in assessment in conjunction with the patient/family and health care team 4. Consult appropriate ancillary services (i.e.. PT/OT/ST, etc) as needed 5. Communicate with and update the patient/family, physician, and health care team regarding progress on the discharge plan 6. Identify discharge learning needs (meds, wound care, etc). 7. Arrange for needed discharge transportation as appropriate Outcome: Progressing Note: Evaluation of progress towards goal: plan dc to [facility] tomorrow; accepting. MD wants to monitor BP and HR overnight as resuming atenolol today Problem: Potential for Compromised Skin Integrity Goal: Skin integrity is maintained or improved Description: Patient's goal is: INTERVENTIONS 1. Perform initial skin assessment on admission and as needed 2. Turn patient every 2 hours and PRN 3. Relieve pressure to bony prominences 4. Avoid shearing 5. Keep skin clean and dry 6. Alternate a full bath with partial baths for elderly 7. Apply lotion/moisturizer on skin 8. Monitor patient's hygiene practices 9. Float heels 10. Collaborate with interdisciplinary team and initiate plans and interventions as needed Outcome: Progressing Note: Evaluation of progress towards goal: encourage frequent turning and OOB activity to promote skin integrity protection Goal: Patient's nutritional intake is adequate Description: Patient's goal is: INTERVENTIONS 1. Assess and monitor food intake and supplements, patient food preferences, nausea, vomiting, labs, oral cavity (gums, teeth, tongue, mucosa), proper denture fit, and cultural beliefs 2. Monitor for signs of hypoglycemia and hyperglycemia 3. Collaborate with interdisciplinary team and initiate plan and interventions as ordered 4. Monitor patient's weight 5. Assist patient with meals/food selection 6. Assist patient with eating 7. Allow adequate time for meals 8. Provide pleasant environment during mealtime 9. Increase social contact during mealtimes 10. Plan activities to conserve energy 11. Encourage/perform oral hygiene as appropriate 12. Encourage patient to take dietary supplement as ordered 13. Collaborate with clinical water commissioner 14. Include patient/ patient's personal banking representative in decisions related to nutrition Outcome: Progressing Note: Evaluation of progress towards goal: encourage PO intake and hydration Problem: Urinary Incontinence Goal: Perineal skin integrity is maintained or improved Description: INTERVENTIONS 1. Assess genitourinary system, perineal skin, labs (urinalysis), and history of incontinence to include past management, aggravating, and alleviating factors 2. Keep skin clean and dry 3. Apply skin protectant 4. Develop skin care regimen 5. Provide privacy when changing patients incontinence device to maintain their dignity 6. Consider placing an indwelling catheter 7. Collaborate with interdisciplinary team and initiate plans and interventions as needed Outcome: Progressing Note: Evaluation of progress towards goal: assist with urinal and hygiene Problem: Neurological Deficit Goal: Neurological status is stable or improving Description: Patient's goal is: INTERVENTIONS 1. Complete Neurological assessment as indicated/ordered 2. Initiate measures to prevent increased intracranial pressure 3. Monitor and assess patient's level of consciousness, motor function, sensory function, and level of assistance needed for ADLs 4. Monitor and report changes from baseline 5. Maintain blood pressure and fluid volume within ordered parameters to optimize cerebral perfusion and minimize risk of hemorrhage 6. Monitor labs and diagnostic tests 7. Administer anti-seizure medications as ordered 8. Maintain airway, patient safety and administer oxygen as ordered 9. Monitor patient for seizure activity, document and report duration and description of seizure to LIP 10. If seizure occurs, turn patient to side and suction secretions as needed 11. Reorient patient post seizure 12. Seizure pads on all 4 side rails 13. Instruct patient/family to notify RN of any seizure activity 14. Instruct patient/family to call for assistance with activity based on assessment 15. Utilize bleeding precautions if thrombolytic given Outcome: Progressing Note: Evaluation of progress towards goal: Q4H neuro checks and vitals; stroke team following Problem: Activity Intolerance/Impaired Mobility Goal: Mobility/activity is maintained at optimum level for patient Description: Patient's goal is: INTERVENTIONS 1. Assess and monitor patient barriers to mobility and need for assistive/adaptive devices 2. Assess patient's emotional response to limitations 3. Collaborate with interdisciplinary teams and initiate plans and interventions as ordered 4. Encourage independent activity per tolerance 5. Maintain proper body alignment 6. Perform active/passive ROM as tolerated/ordered 7. Coordinate activities to conserve energy 8. Reposition patient 9. Ensure adequate rest/sleep time Outcome: Progressing Note: Evaluation of progress towards goal: assist with OOB activity using walker Problem: Communication Impairment Goal: Ability to express needs and understand communication Description: INTERVENTIONS 1. Assess patient's communication skills and ability to understand information 2. Provide alternate method of communication if needed i.e. ipad, sign board, pen/paper 3. Collaborate with Speech Therapy to develop effective communication strategies 4. Include patient/patient personal banking representative in decisions related to communication Outcome: Progressing Note: Evaluation of progress towards goal: [place], speak loudly and understands Problem: Potential for Aspiration Goal: Patient's risk of aspiration is minimized Description: INTERVENTIONS 1. Assess and monitor vital signs, respiratory status, and labs (WBC) 2. Monitor for signs of aspiration (tachypnea, cough, rales, wheezing, cyanosis, fever) 3. Assess and monitor patient's ability to swallow 4. Place patient up in chair to eat if possible 5. Elevate head of bed 90 degrees to eat if unable to get patient up into chair 6. Supervise patient during oral intake 7. Instruct patient to take small bites 8. Instruct patient to take small single sips when taking liquids 9. Follow patient-specific strategies generated by speech pathologist 10. Complete bedside swallow screen if appropriate and take actions as indicated. 11. Administer prescribed medications and monitor effects Outcome: Progressing Note: Evaluation of progress towards goal: aspiration precautions observed; tolerating regular diet well Problem: Anxiety Goal: Anxiety is at manageable level Description: Patient's goal is: INTERVENTIONS 1. Assess and monitor patient's anxiety level 2. Monitor for signs and symptoms of anxiety both physical and emotional (heart palpitations, chest pain, shortness of breath, headaches, nausea, feeling jumpy, restlessness, irritable, apprehensive) 3. Reorient/orient patient to unit/surroundings 4. Explain treatment plan 5. Explain tests/procedures prior to initiation 6. Encourage participation in care 7. Encourage verbalization of concerns/fears 8. Assess coping mechanisms 9. Assist in developing anxiety-reducing skills 10. Administer complimentary therapies 11. Manage patient's environment 12. Limit or eliminate stimulants such as caffeine and nicotine 13. Collaborate with ancillary departments 14. Include patient/patient personal banking representative in decisions related to anxiety Outcome: Progressing Note: Evaluation of progress towards goal: no issues noted Problem: Inadequate Coping Goal: Demonstrates and verbalizes ability to cope effectively Description: Patient's goal is: INTERVENTIONS 1. Patient is able to verbalize feelings related to emotional state 2. Encourage verbalization of feelings, perceptions, fears, stressors, loss of loved ones 3. Encourage verbalization of problems out of their control 4. Encourage participation in care and self management 5. Inform patient of all treatment/care prior to providing care 6. Collaborate with pastoral/spiritual care, social scientist, mental health counselor as needed. 7. Instruct patient on diversional activities such as physical activity, distraction, and deep breathing exercises to assist with coping 8. Involve patient's personal banking representative in care Outcome: Progressing Note: Evaluation of progress towards goal: no issues noted Problem: Potential for Inadequate Tissue Perfusion - Venous Goal: Tissue perfusion is adequate - venous Description: Patient's goal is: INTERVENTIONS 1. Assess and monitor skin color and temperature, skin integrity, pulses, capillary refill, edema, pain in extremities and Homans' sign 2. Monitor for signs and symptoms (dyspnea, tachypnea, and tachycardia) 3. Encourage ambulation/activity per patient's tolerance and physician order 4. Elevate feet when in chair 5. Encourage patient to do ankle pump exercises 6. Apply anti-embolism stockings/devices as ordered Outcome: Progressing Note: Evaluation of progress towards goal: no issues noted Problem: Self Care Deficit Goal: Return ADL status to a safe level of function Description: Patient's goal is: INTERVENTIONS 1. Administer medication as ordered 2. Assess ADL deficits and provide assistive devices as needed 3. Obtain PT/OT consults as needed 4. Assist and instruct patient to increase activity and self care as tolerated Outcome: Progressing Note: Evaluation of progress towards goal: [place] at [place] Problem: Moderate - High Risk Fall Score Description: Valenzuela Fall Score of =/> 25 or indicated by [facility] Assessment Goal: Patient should be free from fall Description: Interventions: 1. [place] to environment 2. Hourly rounds addressing the 4 P's (Pain, Positioning, Possessions, Potty) 3. Clear area of hazards (spills, clutter, electrical cords, unnecessary equipment) 4. Place equipment (bed & TV controls, call light, phone, urinal) within reach 5. Encourage patient to wear glasses and hearing aides as appropriate 6. Maintain bed in lowest position 7. Lock wheels on bed/wheelchair 8. Provide adequate lighting, including night light 9. Assess need for additional bedding, food/fluids, pain med's prior to sleep/routinely 10. Provide gripper slippers or personal non-skid footwear 11. Teach patient and patient personal banking representative to maintain environment for safety and engage in all aspects of fall prevention program 12. Remind patient to call for help before getting out of bed 13. Initiate bed/chair/exit alarms supportive devices as appropriate, (chair wedge, no-skid floor mat, raised edge mattress, hip protectors) 14. Locate patient bed assignment for optimal visualization 15. Evaluate and identify Safe Patient Handling Equipment needs 16. Provide supervision when out of bed or chair 17. Utilize gait belt as needed to assist with ambulation 18. Place adaptive equipment (cane, walker) within reach 19. Request patient personal banking representative bring adaptive equipment/mobility aids from home or obtain and provide as needed 20. Consult pharmacy regarding effects of med's affecting mobility, cognition, and alternatives 21. Obtain physician order for PT if risk factors associated with mobility are present 22. Obtain physician order for OT as appropriate 23. Utilize diversional activities 24. Educate patient and patient personal banking representative how to maintain a safe environment during visitation times (notify nurse prior to leaving bedside) 25. Consider appropriateness of medical or non-biomedical electronics technician 26. Set up voiding schedule as appropriate (every 2 hours) Outcome: Progressing Note: Evaluation of progress towards goal: no falls; syncopal episode per notes 06/21; up with assist only; high fall risk - maintain precautions DISCHARGE PLANNING NOTE Prior Auth approved for admission to : [facility] (P# ; F# ) Approval # [id number] Valid for Dates: 06/22/2025 - 06/28/2025 DISCHARGE PLANNING NOTE [facility] Via: Availity On behalf of : [facility] (P# ; F# ) Ref# [id number] DISCHARGE PLANNING NOTE Case discussed in daily transition rounds and chart reviewed by CN. [facility] Plan [facility]: [facility] accepting referral. Social work contacted to inform of above and she was pleased with the news. is looking for patient's SSN. Social work task RC to start precert. CN will continue to follow and is available should any further needs arise. - CHARLES LEE 06/22/25 10:15 AM Insurance approved SNF stay. Patient is tentatively discharged tomorrow. Social work sent a message to [place] to inform of tentative discharge date. Social work contacted to inform of above and she is agreeable to transition plan. HENS started. - CHARLES LEE 06/22/25 2:54 PM Problem: Pain Goal: Patient goal is pain score less than 4, able to rest, and participant in treatment plan as appropriate Description: INTERVENTIONS: 1. Encourage patient or legal personal banking representative to report early pain and ask for pain medicine when needed 2. Assess pain using appropriate pain scale and include the scale used when documenting 3. Administer analgesics based on type and severity of pain and evaluate response within appropriate time frame 4. Implement non-pharmacological measures as appropriate and evaluate response 5. Consider cultural and social influences on pain and pain management 6. Notify LIP if interventions ineffective or patient reports new pain 7. Monitor vital signs including pulse ox, end-tidal CO2 based on pain intervention 8. Reassess pain per policy 9. Teach patient or legal personal banking representative interventions for comforting Outcome: Progressing Note: Evaluation of progress towards goal: Patient able to verbalize pain on his back. Prn pain medication administered per orders Problem: Safety Goal: Patient will be injury free during hospitalization Description: INTERVENTIONS: 1. Assess patient's risk for falls and implement fall prevention plan of care per policy 2. Provide and maintain a safe environment 3. Proper use of double Identifiers 4. Medication administration using the 5 rights 5. Hand hygiene 6. Specimens are labeled at the bedside 7. Instruct patient/ patient personal banking representative about use of safety devices 8. Include patient/ patient personal banking representative in decisions related to safety Outcome: Progressing Note: Evaluation of progress towards goal: Safety bundles maintained Problem: Infection Goal: Absence of infection during hospitalization Description: INTERVENTIONS 1. Assess and monitor for signs and symptoms of infection. 2. Monitor lab/diagnostic results. 3. Monitor all insertion sites i.e., indwelling lines, tubes and drains. 4. Monitor endotracheal (as able) and nasal secretions for changes in amount and color. 5. Administer medications as ordered. 6. Instruct and encourage patient and family to use good hand hygiene technique. 7. Identify and instruct patient/patient personal banking representative in use of appropriate isolation precautions for identified infection/symptoms. 8. Provide and discuss with patient/patient personal banking representative on educational MDRO sheet. 9. Encourage and monitor nutritional status daily and consult water commissioner if indicated. 10. Implement neutropenic guidelines as needed. Outcome: Progressing Note: Evaluation of progress towards goal: Pt has no s/s of infection, standard precaution maintained Problem: Knowledge Deficit Goal: Patient/patient personal banking representative demonstrates understanding of disease process, treatment plan, medications, and discharge instructions Description: INTERVENTIONS 1. Complete learning assessment and assess knowledge base 2. Provide teaching at level of understanding 3. Provide teaching via preferred learning method(s) Outcome: Progressing Note: Evaluation of progress towards goal: Patient educated on his disease process, treatment and plan of care. Verbalized understanding Problem: Discharge Planning Goal: Discharge to post-acute care, other facility, or home with appropriate resources Description: Patient's goal is: INTERVENTIONS 1. Conduct assessment to determine patient/family and health care team treatment goals, and need for post-acute services based on payer coverage, community resources, and patient preferences, and barriers to discharge 2. Coordinate with Social work, Care Navigation, and Utilization Review to arrange appropriate level of services according to patient's needs based on patient preference and payer coverage in collaboration with the physician and health care team 3. Address psychosocial, clinical, and financial barriers to discharge as identified in assessment in conjunction with the patient/family and health care team 4. Consult appropriate ancillary services (i.e.. PT/OT/ST, etc) as needed 5. Communicate with and update the patient/family, physician, and health care team regarding progress on the discharge plan 6. Identify discharge learning needs (meds, wound care, etc). 7. Arrange for needed discharge transportation as appropriate Outcome: Progressing Note: Evaluation of progress towards goal: in process Problem: Potential for Compromised Skin Integrity Goal: Skin integrity is maintained or improved Description: Patient's goal is: INTERVENTIONS 1. Perform initial skin assessment on admission and as needed 2. Turn patient every 2 hours and PRN 3. Relieve pressure to bony prominences 4. Avoid shearing 5. Keep skin clean and dry 6. Alternate a full bath with partial baths for elderly 7. Apply lotion/moisturizer on skin 8. Monitor patient's hygiene practices 9. Float heels 10. Collaborate with interdisciplinary team and initiate plans and interventions as needed Outcome: Progressing Note: Evaluation of progress towards goal: Patient skin is dry and intact. Patient able to turn self in bed Goal: Patient's nutritional intake is adequate Description: Patient's goal is: INTERVENTIONS 1. Assess and monitor food intake and supplements, patient food preferences, nausea, vomiting, labs, oral cavity (gums, teeth, tongue, mucosa), proper denture fit, and cultural beliefs 2. Monitor for signs of hypoglycemia and hyperglycemia 3. Collaborate with interdisciplinary team and initiate plan and interventions as ordered 4. Monitor patient's weight 5. Assist patient with meals/food selection 6. Assist patient with eating 7. Allow adequate time for meals 8. Provide pleasant environment during mealtime 9. Increase social contact during mealtimes 10. Plan activities to conserve energy 11. Encourage/perform oral hygiene as appropriate 12. Encourage patient to take dietary supplement as ordered 13. Collaborate with clinical water commissioner 14. Include patient/ patient's personal banking representative in decisions related to nutrition Outcome: Progressing Note: Evaluation of progress towards goal: nutrition is adequate. Problem: Urinary Incontinence Goal: Perineal skin integrity is maintained or improved Description: INTERVENTIONS 1. Assess genitourinary system, perineal skin, labs (urinalysis), and history of incontinence to include past management, aggravating, and alleviating factors 2. Keep skin clean and dry 3. Apply skin protectant 4. Develop skin care regimen 5. Provide privacy when changing patients incontinence device to maintain their dignity 6. Consider placing an indwelling catheter 7. Collaborate with interdisciplinary team and initiate plans and interventions as needed Outcome: Progressing Note: Evaluation of progress towards goal: Patient is continent of urine, uses a urinal with assist Problem: Neurological Deficit Goal: Neurological status is stable or improving Description: Patient's goal is: INTERVENTIONS 1. Complete Neurological assessment as indicated/ordered 2. Initiate measures to prevent increased intracranial pressure 3. Monitor and assess patient's level of consciousness, motor function, sensory function, and level of assistance needed for ADLs 4. Monitor and report changes from baseline 5. Maintain blood pressure and fluid volume within ordered parameters to optimize cerebral perfusion and minimize risk of hemorrhage 6. Monitor labs and diagnostic tests 7. Administer anti-seizure medications as ordered 8. Maintain airway, patient safety and administer oxygen as ordered 9. Monitor patient for seizure activity, document and report duration and description of seizure to LIP 10. If seizure occurs, turn patient to side and suction secretions as needed 11. Reorient patient post seizure 12. Seizure pads on all 4 side rails 13. Instruct patient/family to notify RN of any seizure activity 14. Instruct patient/family to call for assistance with activity based on assessment 15. Utilize bleeding precautions if thrombolytic given Outcome: Progressing Note: Evaluation of progress towards goal: neurological assessment done and documented every 4 hours as per the orders Problem: Activity Intolerance/Impaired Mobility Goal: Mobility/activity is maintained at optimum level for patient Description: Patient's goal is: INTERVENTIONS 1. Assess and monitor patient barriers to mobility and need for assistive/adaptive devices 2. Assess patient's emotional response to limitations 3. Collaborate with interdisciplinary teams and initiate plans and interventions as ordered 4. Encourage independent activity per tolerance 5. Maintain proper body alignment 6. Perform active/passive ROM as tolerated/ordered 7. Coordinate activities to conserve energy 8. Reposition patient 9. Ensure adequate rest/sleep time Outcome: Progressing Note: Evaluation of progress towards goal: Problem: Communication Impairment Goal: Ability to express needs and understand communication Description: INTERVENTIONS 1. Assess patient's communication skills and ability to understand information 2. Provide alternate method of communication if needed i.e. ipad, sign board, pen/paper 3. Collaborate with Speech Therapy to develop effective communication strategies 4. Include patient/patient personal banking representative in decisions related to communication Outcome: Progressing Note: Evaluation of progress towards goal: pt is alert and oriented to self, able to communicate with come confusion Problem: Potential for Aspiration Goal: Patient's risk of aspiration is minimized Description: INTERVENTIONS 1. Assess and monitor vital signs, respiratory status, and labs (WBC) 2. Monitor for signs of aspiration (tachypnea, cough, rales, wheezing, cyanosis, fever) 3. Assess and monitor patient's ability to swallow 4. Place patient up in chair to eat if possible 5. Elevate head of bed 90 degrees to eat if unable to get patient up into chair 6. Supervise patient during oral intake 7. Instruct patient to take small bites 8. Instruct patient to take small single sips when taking liquids 9. Follow patient-specific strategies generated by speech pathologist 10. Complete bedside swallow screen if appropriate and take actions as indicated. 11. Administer prescribed medications and monitor effects Outcome: Progressing Note: Evaluation of progress towards goal: Problem: Anxiety Goal: Anxiety is at manageable level Description: Patient's goal is: INTERVENTIONS 1. Assess and monitor patient's anxiety level 2. Monitor for signs and symptoms of anxiety both physical and emotional (heart palpitations, chest pain, shortness of breath, headaches, nausea, feeling jumpy, restlessness, irritable, apprehensive) 3. Reorient/orient patient to unit/surroundings 4. Explain treatment plan 5. Explain tests/procedures prior to initiation 6. Encourage participation in care 7. Encourage verbalization of concerns/fears 8. Assess coping mechanisms 9. Assist in developing anxiety-reducing skills 10. Administer complimentary therapies 11. Manage patient's environment 12. Limit or eliminate stimulants such as caffeine and nicotine 13. Collaborate with ancillary departments 14. Include patient/patient personal banking representative in decisions related to anxiety Outcome: Progressing Note: Evaluation of progress towards goal: Problem: Inadequate Coping Goal: Demonstrates and verbalizes ability to cope effectively Description: Patient's goal is: INTERVENTIONS 1. Patient is able to verbalize feelings related to emotional state 2. Encourage verbalization of feelings, perceptions, fears, stressors, loss of loved ones 3. Encourage verbalization of problems out of their control 4. Encourage participation in care and self management 5. Inform patient of all treatment/care prior to providing care 6. Collaborate with pastoral/spiritual care, social scientist, mental health counselor as needed. 7. Instruct patient on diversional activities such as physical activity, distraction, and deep breathing exercises to assist with coping 8. Involve patient's personal banking representative in care Outcome: Progressing Note: Evaluation of progress towards goal: no issues Problem: Potential for Inadequate Tissue Perfusion - Venous Goal: Tissue perfusion is adequate - venous Description: Patient's goal is: INTERVENTIONS 1. Assess and monitor skin color and temperature, skin integrity, pulses, capillary refill, edema, pain in extremities and Homans' sign 2. Monitor for signs and symptoms (dyspnea, tachypnea, and tachycardia) 3. Encourage ambulation/activity per patient's tolerance and physician order 4. Elevate feet when in chair 5. Encourage patient to do ankle pump exercises 6. Apply anti-embolism stockings/devices as ordered Outcome: Progressing Note: Evaluation of progress towards goal: Problem: Self Care Deficit Goal: Return ADL status to a safe level of function Description: Patient's goal is: INTERVENTIONS 1. Administer medication as ordered 2. Assess ADL deficits and provide assistive devices as needed 3. Obtain PT/OT consults as needed 4. Assist and instruct patient to increase activity and self care as tolerated Outcome: Progressing Note: Evaluation of progress towards goal: Problem: Moderate - High Risk Fall Score Description: Valenzuela Fall Score of =/> 25 or indicated by [facility] Assessment Goal: Patient should be free from fall Description: Interventions: 1. [place] to environment 2. Hourly rounds addressing the 4 P's (Pain, Positioning, Possessions, Potty) 3. Clear area of hazards (spills, clutter, electrical cords, unnecessary equipment) 4. Place equipment (bed & TV controls, call light, phone, urinal) within reach 5. Encourage patient to wear glasses and hearing aides as appropriate 6. Maintain bed in lowest position 7. Lock wheels on bed/wheelchair 8. Provide adequate lighting, including night light 9. Assess need for additional bedding, food/fluids, pain med's prior to sleep/routinely 10. Provide gripper slippers or personal non-skid footwear 11. Teach patient and patient personal banking representative to maintain environment for safety and engage in all aspects of fall prevention program 12. Remind patient to call for help before getting out of bed 13. Initiate bed/chair/exit alarms supportive devices as appropriate, (chair wedge, no-skid floor mat, raised edge mattress, hip protectors) 14. Locate patient bed assignment for optimal visualization 15. Evaluate and identify Safe Patient Handling Equipment needs 16. Provide supervision when out of bed or chair 17. Utilize gait belt as needed to assist with ambulation 18. Place adaptive equipment (cane, walker) within reach 19. Request patient personal banking representative bring adaptive equipment/mobility aids from home or obtain and provide as needed 20. Consult pharmacy regarding effects of med's affecting mobility, cognition, and alternatives 21. Obtain physician order for PT if risk factors associated with mobility are present 22. Obtain physician order for OT as appropriate 23. Utilize diversional activities 24. Educate patient and patient personal banking representative how to maintain a safe environment during visitation times (notify nurse prior to leaving bedside) 25. Consider appropriateness of medical or non-biomedical electronics technician 26. Set up voiding schedule as appropriate (every 2 hours) Outcome: Progressing Note: Evaluation of progress towards goal: Fall bundles maintained Problem: Knowledge Deficit Goal: Patient/patient personal banking representative demonstrates understanding of disease process, treatment plan, medications, and discharge instructions Description: INTERVENTIONS 1. Complete learning assessment and assess knowledge base 2. Provide teaching at level of understanding 3. Provide teaching via preferred learning method(s) Outcome: Not Progressing Note: Evaluation of progress towards goal: confusion, no signs of understanding Problem: Neurological Deficit Goal: Neurological status is stable or improving Description: Patient's goal is: INTERVENTIONS 1. Complete Neurological assessment as indicated/ordered 2. Initiate measures to prevent increased intracranial pressure 3. Monitor and assess patient's level of consciousness, motor function, sensory function, and level of assistance needed for ADLs 4. Monitor and report changes from baseline 5. Maintain blood pressure and fluid volume within ordered parameters to optimize cerebral perfusion and minimize risk of hemorrhage 6. Monitor labs and diagnostic tests 7. Administer anti-seizure medications as ordered 8. Maintain airway, patient safety and administer oxygen as ordered 9. Monitor patient for seizure activity, document and report duration and description of seizure to LIP 10. If seizure occurs, turn patient to side and suction secretions as needed 11. Reorient patient post seizure 12. Seizure pads on all 4 side rails 13. Instruct patient/family to notify RN of any seizure activity 14. Instruct patient/family to call for assistance with activity based on assessment 15. Utilize bleeding precautions if thrombolytic given Outcome: Not Progressing Note: Evaluation of progress towards goal: confused, syncopal episode this am on toilet Problem: Self Care Deficit Goal: Return ADL status to a safe level of function Description: Patient's goal is: INTERVENTIONS 1. Administer medication as ordered 2. Assess ADL deficits and provide assistive devices as needed 3. Obtain PT/OT consults as needed 4. Assist and instruct patient to increase activity and self care as tolerated Outcome: Not Progressing Note: Evaluation of progress towards goal: needed fed at times this shift, total care for adl's Problem: Knowledge Deficit Goal: Patient/patient personal banking representative demonstrates understanding of disease process, treatment plan, medications, and discharge instructions Description: INTERVENTIONS 1. Complete learning assessment and assess knowledge base 2. Provide teaching at level of understanding 3. Provide teaching via preferred learning method(s) Outcome: Not Progressing Note: Evaluation of progress towards goal: confusion, no signs of understanding Problem: Neurological Deficit Goal: Neurological status is stable or improving Description: Patient's goal is: INTERVENTIONS 1. Complete Neurological assessment as indicated/ordered 2. Initiate measures to prevent increased intracranial pressure 3. Monitor and assess patient's level of consciousness, motor function, sensory function, and level of assistance needed for ADLs 4. Monitor and report changes from baseline 5. Maintain blood pressure and fluid volume within ordered parameters to optimize cerebral perfusion and minimize risk of hemorrhage 6. Monitor labs and diagnostic tests 7. Administer anti-seizure medications as ordered 8. Maintain airway, patient safety and administer oxygen as ordered 9. Monitor patient for seizure activity, document and report duration and description of seizure to LIP 10. If seizure occurs, turn patient to side and suction secretions as needed 11. Reorient patient post seizure 12. Seizure pads on all 4 side rails 13. Instruct patient/family to notify RN of any seizure activity 14. Instruct patient/family to call for assistance with activity based on assessment 15. Utilize bleeding precautions if thrombolytic given Outcome: Not Progressing Note: Evaluation of progress towards goal: confused, syncopal episode this am on toilet Problem: Self Care Deficit Goal: Return ADL status to a safe level of function Description: Patient's goal is: INTERVENTIONS 1. Administer medication as ordered 2. Assess ADL deficits and provide assistive devices as needed 3. Obtain PT/OT consults as needed 4. Assist and instruct patient to increase activity and self care as tolerated Outcome: Not Progressing Note: Evaluation of progress towards goal: needed fed at times this shift, total care for adl's Problem: Pain Goal: Patient goal is pain score less than 4, able to rest, and participant in treatment plan as appropriate Description: INTERVENTIONS: 1. Encourage patient or legal personal banking representative to report early pain and ask for pain medicine when needed 2. Assess pain using appropriate pain scale and include the scale used when documenting 3. Administer analgesics based on type and severity of pain and evaluate response within appropriate time frame 4. Implement non-pharmacological measures as appropriate and evaluate response 5. Consider cultural and social influences on pain and pain management 6. Notify LIP if interventions ineffective or patient reports new pain 7. Monitor vital signs including pulse ox, end-tidal CO2 based on pain intervention 8. Reassess pain per policy 9. Teach patient or legal personal banking representative interventions for comforting Outcome: Progressing Note: Evaluation of progress towards goal: denies, lidocaine patch to low back per order, continue to monitor and provide comfort measures Problem: Safety Goal: Patient will be injury free during hospitalization Description: INTERVENTIONS: 1. Assess patient's risk for falls and implement fall prevention plan of care per policy 2. Provide and maintain a safe environment 3. Proper use of double Identifiers 4. Medication administration using the 5 rights 5. Hand hygiene 6. Specimens are labeled at the bedside 7. Instruct patient/ patient personal banking representative about use of safety devices 8. Include patient/ patient personal banking representative in decisions related to safety Outcome: Progressing Note: Evaluation of progress towards goal: injury free this shift, safety measures maintained Problem: Infection Goal: Absence of infection during hospitalization Description: INTERVENTIONS 1. Assess and monitor for signs and symptoms of infection. 2. Monitor lab/diagnostic results. 3. Monitor all insertion sites i.e., indwelling lines, tubes and drains. 4. Monitor endotracheal (as able) and nasal secretions for changes in amount and color. 5. Administer medications as ordered. 6. Instruct and encourage patient and family to use good hand hygiene technique. 7. Identify and instruct patient/patient personal banking representative in use of appropriate isolation precautions for identified infection/symptoms. 8. Provide and discuss with patient/patient personal banking representative on educational MDRO sheet. 9. Encourage and monitor nutritional status daily and consult water commissioner if indicated. 10. Implement neutropenic guidelines as needed. Outcome: Progressing Note: Evaluation of progress towards goal: WBC wnl, continue to monitor Problem: Discharge Planning Goal: Discharge to post-acute care, other facility, or home with appropriate resources Description: Patient's goal is: INTERVENTIONS 1. Conduct assessment to determine patient/family and health care team treatment goals, and need for post-acute services based on payer coverage, community resources, and patient preferences, and barriers to discharge 2. Coordinate with Social work, Care Navigation, and Utilization Review to arrange appropriate level of services according to patient's needs based on patient preference and payer coverage in collaboration with the physician and health care team 3. Address psychosocial, clinical, and financial barriers to discharge as identified in assessment in conjunction with the patient/family and health care team 4. Consult appropriate ancillary services (i.e.. PT/OT/ST, etc) as needed 5. Communicate with and update the patient/family, physician, and health care team regarding progress on the discharge plan 6. Identify discharge learning needs (meds, wound care, etc). 7. Arrange for needed discharge transportation as appropriate Outcome: Progressing Note: Evaluation of progress towards goal: in progress for snf Problem: Potential for Compromised Skin Integrity Goal: Skin integrity is maintained or improved Description: Patient's goal is: INTERVENTIONS 1. Perform initial skin assessment on admission and as needed 2. Turn patient every 2 hours and PRN 3. Relieve pressure to bony prominences 4. Avoid shearing 5. Keep skin clean and dry 6. Alternate a full bath with partial baths for elderly 7. Apply lotion/moisturizer on skin 8. Monitor patient's hygiene practices 9. Float heels 10. Collaborate with interdisciplinary team and initiate plans and interventions as needed Outcome: Progressing Note: Evaluation of progress towards goal: skin intact, moisture management due to incontinent Goal: Patient's nutritional intake is adequate Description: Patient's goal is: INTERVENTIONS 1. Assess and monitor food intake and supplements, patient food preferences, nausea, vomiting, labs, oral cavity (gums, teeth, tongue, mucosa), proper denture fit, and cultural beliefs 2. Monitor for signs of hypoglycemia and hyperglycemia 3. Collaborate with interdisciplinary team and initiate plan and interventions as ordered 4. Monitor patient's weight 5. Assist patient with meals/food selection 6. Assist patient with eating 7. Allow adequate time for meals 8. Provide pleasant environment during mealtime 9. Increase social contact during mealtimes 10. Plan activities to conserve energy 11. Encourage/perform oral hygiene as appropriate 12. Encourage patient to take dietary supplement as ordered 13. Collaborate with clinical water commissioner 14. Include patient/ patient's personal banking representative in decisions related to nutrition Outcome: Progressing Note: Evaluation of progress towards goal: good intake Problem: Urinary Incontinence Goal: Perineal skin integrity is maintained or improved Description: INTERVENTIONS 1. Assess genitourinary system, perineal skin, labs (urinalysis), and history of incontinence to include past management, aggravating, and alleviating factors 2. Keep skin clean and dry 3. Apply skin protectant 4. Develop skin care regimen 5. Provide privacy when changing patients incontinence device to maintain their dignity 6. Consider placing an indwelling catheter 7. Collaborate with interdisciplinary team and initiate plans and interventions as needed Outcome: Progressing Note: Evaluation of progress towards goal: continues to have incontinence, skin intact Problem: Activity Intolerance/Impaired Mobility Goal: Mobility/activity is maintained at optimum level for patient Description: Patient's goal is: INTERVENTIONS 1. Assess and monitor patient barriers to mobility and need for assistive/adaptive devices 2. Assess patient's emotional response to limitations 3. Collaborate with interdisciplinary teams and initiate plans and interventions as ordered 4. Encourage independent activity per tolerance 5. Maintain proper body alignment 6. Perform active/passive ROM as tolerated/ordered 7. Coordinate activities to conserve energy 8. Reposition patient 9. Ensure adequate rest/sleep time Outcome: Progressing Note: Evaluation of progress towards goal: 2 assist or theresa steady to transfer Problem: Communication Impairment Goal: Ability to express needs and understand communication Description: INTERVENTIONS 1. Assess patient's communication skills and ability to understand information 2. Provide alternate method of communication if needed i.e. ipad, sign board, pen/paper 3. Collaborate with Speech Therapy to develop effective communication strategies 4. Include patient/patient personal banking representative in decisions related to communication Outcome: Progressing Note: Evaluation of progress towards goal: confused but able to express self Problem: Potential for Aspiration Goal: Patient's risk of aspiration is minimized Description: INTERVENTIONS 1. Assess and monitor vital signs, respiratory status, and labs (WBC) 2. Monitor for signs of aspiration (tachypnea, cough, rales, wheezing, cyanosis, fever) 3. Assess and monitor patient's ability to swallow 4. Place patient up in chair to eat if possible 5. Elevate head of bed 90 degrees to eat if unable to get patient up into chair 6. Supervise patient during oral intake 7. Instruct patient to take small bites 8. Instruct patient to take small single sips when taking liquids 9. Follow patient-specific strategies generated by speech pathologist 10. Complete bedside swallow screen if appropriate and take actions as indicated. 11. Administer prescribed medications and monitor effects Outcome: Progressing Note: Evaluation of progress towards goal: aspiration precautions maintianed Problem: Anxiety Goal: Anxiety is at manageable level Description: Patient's goal is: INTERVENTIONS 1. Assess and monitor patient's anxiety level 2. Monitor for signs and symptoms of anxiety both physical and emotional (heart palpitations, chest pain, shortness of breath, headaches, nausea, feeling jumpy, restlessness, irritable, apprehensive) 3. Reorient/orient patient to unit/surroundings 4. Explain treatment plan 5. Explain tests/procedures prior to initiation 6. Encourage participation in care 7. Encourage verbalization of concerns/fears 8. Assess coping mechanisms 9. Assist in developing anxiety-reducing skills 10. Administer complimentary therapies 11. Manage patient's environment 12. Limit or eliminate stimulants such as caffeine and nicotine 13. Collaborate with ancillary departments 14. Include patient/patient personal banking representative in decisions related to anxiety Outcome: Progressing Note: Evaluation of progress towards goal: voices feelings and needs, calm and cooperative this day Problem: Inadequate Coping Goal: Demonstrates and verbalizes ability to cope effectively Description: Patient's goal is: INTERVENTIONS 1. Patient is able to verbalize feelings related to emotional state 2. Encourage verbalization of feelings, perceptions, fears, stressors, loss of loved ones 3. Encourage verbalization of problems out of their control 4. Encourage participation in care and self management 5. Inform patient of all treatment/care prior to providing care 6. Collaborate with pastoral/spiritual care, social scientist, mental health counselor as needed. 7. Instruct patient on diversional activities such as physical activity, distraction, and deep breathing exercises to assist with coping 8. Involve patient's personal banking representative in care Outcome: Progressing Note: Evaluation of progress towards goal: no issues Problem: Potential for Inadequate Tissue Perfusion - Venous Goal: Tissue perfusion is adequate - venous Description: Patient's goal is: INTERVENTIONS 1. Assess and monitor skin color and temperature, skin integrity, pulses, capillary refill, edema, pain in extremities and Homans' sign 2. Monitor for signs and symptoms (dyspnea, tachypnea, and tachycardia) 3. Encourage ambulation/activity per patient's tolerance and physician order 4. Elevate feet when in chair 5. Encourage patient to do ankle pump exercises 6. Apply anti-embolism stockings/devices as ordered Outcome: Progressing Note: Evaluation of progress towards goal: no issues Problem: Moderate - High Risk Fall Score Description: Valenzuela Fall Score of =/> 25 or indicated by [facility] Assessment Goal: Patient should be free from fall Description: Interventions: 1. [place] to environment 2. Hourly rounds addressing the 4 P's (Pain, Positioning, Possessions, Potty) 3. Clear area of hazards (spills, clutter, electrical cords, unnecessary equipment) 4. Place equipment (bed & TV controls, call light, phone, urinal) within reach 5. Encourage patient to wear glasses and hearing aides as appropriate 6. Maintain bed in lowest position 7. Lock wheels on bed/wheelchair 8. Provide adequate lighting, including night light 9. Assess need for additional bedding, food/fluids, pain med's prior to sleep/routinely 10. Provide gripper slippers or personal non-skid footwear 11. Teach patient and patient personal banking representative to maintain environment for safety and engage in all aspects of fall prevention program 12. Remind patient to call for help before getting out of bed 13. Initiate bed/chair/exit alarms supportive devices as appropriate, (chair wedge, no-skid floor mat, raised edge mattress, hip protectors) 14. Locate patient bed assignment for optimal visualization 15. Evaluate and identify Safe Patient Handling Equipment needs 16. Provide supervision when out of bed or chair 17. Utilize gait belt as needed to assist with ambulation 18. Place adaptive equipment (cane, walker) within reach 19. Request patient personal banking representative bring adaptive equipment/mobility aids from home or obtain and provide as needed 20. Consult pharmacy regarding effects of med's affecting mobility, cognition, and alternatives 21. Obtain physician order for PT if risk factors associated with mobility are present 22. Obtain physician order for OT as appropriate 23. Utilize diversional activities 24. Educate patient and patient personal banking representative how to maintain a safe environment during visitation times (notify nurse prior to leaving bedside) 25. Consider appropriateness of medical or non-biomedical electronics technician 26. Set up voiding schedule as appropriate (every 2 hours) Outcome: Progressing Note: Evaluation of progress towards goal: free of fall this shift Problem: Neurological Deficit Goal: Neurological status is stable or improving Description: Patient's goal is: INTERVENTIONS 1. Complete Neurological assessment as indicated/ordered 2. Initiate measures to prevent increased intracranial pressure 3. Monitor and assess patient's level of consciousness, motor function, sensory function, and level of assistance needed for ADLs 4. Monitor and report changes from baseline 5. Maintain blood pressure and fluid volume within ordered parameters to optimize cerebral perfusion and minimize risk of hemorrhage 6. Monitor labs and diagnostic tests 7. Administer anti-seizure medications as ordered 8. Maintain airway, patient safety and administer oxygen as ordered 9. Monitor patient for seizure activity, document and report duration and description of seizure to LIP 10. If seizure occurs, turn patient to side and suction secretions as needed 11. Reorient patient post seizure 12. Seizure pads on all 4 side rails 13. Instruct patient/family to notify RN of any seizure activity 14. Instruct patient/family to call for assistance with activity based on assessment 15. Utilize bleeding precautions if thrombolytic given Outcome: Not Progressing Note: Evaluation of progress towards goal: confused, syncopal episode this am on toilet Problem: Self Care Deficit Goal: Return ADL status to a safe level of function Description: Patient's goal is: INTERVENTIONS 1. Administer medication as ordered 2. Assess ADL deficits and provide assistive devices as needed 3. Obtain PT/OT consults as needed 4. Assist and instruct patient to increase activity and self care as tolerated Outcome: Not Progressing Note: Evaluation of progress towards goal: needed fed at times this shift, total care for adl's Problem: Pain Goal: Patient goal is pain score less than 4, able to rest, and participant in treatment plan as appropriate Description: INTERVENTIONS: 1. Encourage patient or legal personal banking representative to report early pain and ask for pain medicine when needed 2. Assess pain using appropriate pain scale and include the scale used when documenting 3. Administer analgesics based on type and severity of pain and evaluate response within appropriate time frame 4. Implement non-pharmacological measures as appropriate and evaluate response 5. Consider cultural and social influences on pain and pain management 6. Notify LIP if interventions ineffective or patient reports new pain 7. Monitor vital signs including pulse ox, end-tidal CO2 based on pain intervention 8. Reassess pain per policy 9. Teach patient or legal personal banking representative interventions for comforting Outcome: Progressing Note: Evaluation of progress towards goal: denies, lidocaine patch to low back per order, continue to monitor and provide comfort measures Problem: Safety Goal: Patient will be injury free during hospitalization Description: INTERVENTIONS: 1. Assess patient's risk for falls and implement fall prevention plan of care per policy 2. Provide and maintain a safe environment 3. Proper use of double Identifiers 4. Medication administration using the 5 rights 5. Hand hygiene 6. Specimens are labeled at the bedside 7. Instruct patient/ patient personal banking representative about use of safety devices 8. Include patient/ patient personal banking representative in decisions related to safety Outcome: Progressing Note: Evaluation of progress towards goal: injury free this shift, safety measures maintained Problem: Infection Goal: Absence of infection during hospitalization Description: INTERVENTIONS 1. Assess and monitor for signs and symptoms of infection. 2. Monitor lab/diagnostic results. 3. Monitor all insertion sites i.e., indwelling lines, tubes and drains. 4. Monitor endotracheal (as able) and nasal secretions for changes in amount and color. 5. Administer medications as ordered. 6. Instruct and encourage patient and family to use good hand hygiene technique. 7. Identify and instruct patient/patient personal banking representative in use of appropriate isolation precautions for identified infection/symptoms. 8. Provide and discuss with patient/patient personal banking representative on educational MDRO sheet. 9. Encourage and monitor nutritional status daily and consult water commissioner if indicated. 10. Implement neutropenic guidelines as needed. Outcome: Progressing Note: Evaluation of progress towards goal: WBC wnl, continue to monitor Problem: Discharge Planning Goal: Discharge to post-acute care, other facility, or home with appropriate resources Description: Patient's goal is: INTERVENTIONS 1. Conduct assessment to determine patient/family and health care team treatment goals, and need for post-acute services based on payer coverage, community resources, and patient preferences, and barriers to discharge 2. Coordinate with Social work, Care Navigation, and Utilization Review to arrange appropriate level of services according to patient's needs based on patient preference and payer coverage in collaboration with the physician and health care team 3. Address psychosocial, clinical, and financial barriers to discharge as identified in assessment in conjunction with the patient/family and health care team 4. Consult appropriate ancillary services (i.e.. PT/OT/ST, etc) as needed 5. Communicate with and update the patient/family, physician, and health care team regarding progress on the discharge plan 6. Identify discharge learning needs (meds, wound care, etc). 7. Arrange for needed discharge transportation as appropriate Outcome: Progressing Note: Evaluation of progress towards goal: in progress for snf Problem: Potential for Compromised Skin Integrity Goal: Skin integrity is maintained or improved Description: Patient's goal is: INTERVENTIONS 1. Perform initial skin assessment on admission and as needed 2. Turn patient every 2 hours and PRN 3. Relieve pressure to bony prominences 4. Avoid shearing 5. Keep skin clean and dry 6. Alternate a full bath with partial baths for elderly 7. Apply lotion/moisturizer on skin 8. Monitor patient's hygiene practices 9. Float heels 10. Collaborate with interdisciplinary team and initiate plans and interventions as needed Outcome: Progressing Note: Evaluation of progress towards goal: skin intact, moisture management due to incontinent Goal: Patient's nutritional intake is adequate Description: Patient's goal is: INTERVENTIONS 1. Assess and monitor food intake and supplements, patient food preferences, nausea, vomiting, labs, oral cavity (gums, teeth, tongue, mucosa), proper denture fit, and cultural beliefs 2. Monitor for signs of hypoglycemia and hyperglycemia 3. Collaborate with interdisciplinary team and initiate plan and interventions as ordered 4. Monitor patient's weight 5. Assist patient with meals/food selection 6. Assist patient with eating 7. Allow adequate time for meals 8. Provide pleasant environment during mealtime 9. Increase social contact during mealtimes 10. Plan activities to conserve energy 11. Encourage/perform oral hygiene as appropriate 12. Encourage patient to take dietary supplement as ordered 13. Collaborate with clinical water commissioner 14. Include patient/ patient's personal banking representative in decisions related to nutrition Outcome: Progressing Note: Evaluation of progress towards goal: good intake Problem: Urinary Incontinence Goal: Perineal skin integrity is maintained or improved Description: INTERVENTIONS 1. Assess genitourinary system, perineal skin, labs (urinalysis), and history of incontinence to include past management, aggravating, and alleviating factors 2. Keep skin clean and dry 3. Apply skin protectant 4. Develop skin care regimen 5. Provide privacy when changing patients incontinence device to maintain their dignity 6. Consider placing an indwelling catheter 7. Collaborate with interdisciplinary team and initiate plans and interventions as needed Outcome: Progressing Note: Evaluation of progress towards goal: continues to have incontinence, skin intact Problem: Activity Intolerance/Impaired Mobility Goal: Mobility/activity is maintained at optimum level for patient Description: Patient's goal is: INTERVENTIONS 1. Assess and monitor patient barriers to mobility and need for assistive/adaptive devices 2. Assess patient's emotional response to limitations 3. Collaborate with interdisciplinary teams and initiate plans and interventions as ordered 4. Encourage independent activity per tolerance 5. Maintain proper body alignment 6. Perform active/passive ROM as tolerated/ordered 7. Coordinate activities to conserve energy 8. Reposition patient 9. Ensure adequate rest/sleep time Outcome: Progressing Note: Evaluation of progress towards goal: 2 assist or theresa steady to transfer Problem: Communication Impairment Goal: Ability to express needs and understand communication Description: INTERVENTIONS 1. Assess patient's communication skills and ability to understand information 2. Provide alternate method of communication if needed i.e. ipad, sign board, pen/paper 3. Collaborate with Speech Therapy to develop effective communication strategies 4. Include patient/patient personal banking representative in decisions related to communication Outcome: Progressing Note: Evaluation of progress towards goal: confused but able to express self Problem: Potential for Aspiration Goal: Patient's risk of aspiration is minimized Description: INTERVENTIONS 1. Assess and monitor vital signs, respiratory status, and labs (WBC) 2. Monitor for signs of aspiration (tachypnea, cough, rales, wheezing, cyanosis, fever) 3. Assess and monitor patient's ability to swallow 4. Place patient up in chair to eat if possible 5. Elevate head of bed 90 degrees to eat if unable to get patient up into chair 6. Supervise patient during oral intake 7. Instruct patient to take small bites 8. Instruct patient to take small single sips when taking liquids 9. Follow patient-specific strategies generated by speech pathologist 10. Complete bedside swallow screen if appropriate and take actions as indicated. 11. Administer prescribed medications and monitor effects Outcome: Progressing Note: Evaluation of progress towards goal: aspiration precautions maintianed Problem: Anxiety Goal: Anxiety is at manageable level Description: Patient's goal is: INTERVENTIONS 1. Assess and monitor patient's anxiety level 2. Monitor for signs and symptoms of anxiety both physical and emotional (heart palpitations, chest pain, shortness of breath, headaches, nausea, feeling jumpy, restlessness, irritable, apprehensive) 3. Reorient/orient patient to unit/surroundings 4. Explain treatment plan 5. Explain tests/procedures prior to initiation 6. Encourage participation in care 7. Encourage verbalization of concerns/fears 8. Assess coping mechanisms 9. Assist in developing anxiety-reducing skills 10. Administer complimentary therapies 11. Manage patient's environment 12. Limit or eliminate stimulants such as caffeine and nicotine 13. Collaborate with ancillary departments 14. Include patient/patient personal banking representative in decisions related to anxiety Outcome: Progressing Note: Evaluation of progress towards goal: voices feelings and needs, calm and cooperative this day Problem: Inadequate Coping Goal: Demonstrates and verbalizes ability to cope effectively Description: Patient's goal is: INTERVENTIONS 1. Patient is able to verbalize feelings related to emotional state 2. Encourage verbalization of feelings, perceptions, fears, stressors, loss of loved ones 3. Encourage verbalization of problems out of their control 4. Encourage participation in care and self management 5. Inform patient of all treatment/care prior to providing care 6. Collaborate with pastoral/spiritual care, social scientist, mental health counselor as needed. 7. Instruct patient on diversional activities such as physical activity, distraction, and deep breathing exercises to assist with coping 8. Involve patient's personal banking representative in care Outcome: Progressing Note: Evaluation of progress towards goal: no issues Problem: Potential for Inadequate Tissue Perfusion - Venous Goal: Tissue perfusion is adequate - venous Description: Patient's goal is: INTERVENTIONS 1. Assess and monitor skin color and temperature, skin integrity, pulses, capillary refill, edema, pain in extremities and Homans' sign 2. Monitor for signs and symptoms (dyspnea, tachypnea, and tachycardia) 3. Encourage ambulation/activity per patient's tolerance and physician order 4. Elevate feet when in chair 5. Encourage patient to do ankle pump exercises 6. Apply anti-embolism stockings/devices as ordered Outcome: Progressing Note: Evaluation of progress towards goal: no issues Problem: Moderate - High Risk Fall Score Description: Valenzuela Fall Score of =/> 25 or indicated by [facility] Assessment Goal: Patient should be free from fall Description: Interventions: 1. [place] to environment 2. Hourly rounds addressing the 4 P's (Pain, Positioning, Possessions, Potty) 3. Clear area of hazards (spills, clutter, electrical cords, unnecessary equipment) 4. Place equipment (bed & TV controls, call light, phone, urinal) within reach 5. Encourage patient to wear glasses and hearing aides as appropriate 6. Maintain bed in lowest position 7. Lock wheels on bed/wheelchair 8. Provide adequate lighting, including night light 9. Assess need for additional bedding, food/fluids, pain med's prior to sleep/routinely 10. Provide gripper slippers or personal non-skid footwear 11. Teach patient and patient personal banking representative to maintain environment for safety and engage in all aspects of fall prevention program 12. Remind patient to call for help before getting out of bed 13. Initiate bed/chair/exit alarms supportive devices as appropriate, (chair wedge, no-skid floor mat, raised edge mattress, hip protectors) 14. Locate patient bed assignment for optimal visualization 15. Evaluate and identify Safe Patient Handling Equipment needs 16. Provide supervision when out of bed or chair 17. Utilize gait belt as needed to assist with ambulation 18. Place adaptive equipment (cane, walker) within reach 19. Request patient personal banking representative bring adaptive equipment/mobility aids from home or obtain and provide as needed 20. Consult pharmacy regarding effects of med's affecting mobility, cognition, and alternatives 21. Obtain physician order for PT if risk factors associated with mobility are present 22. Obtain physician order for OT as appropriate 23. Utilize diversional activities 24. Educate patient and patient personal banking representative how to maintain a safe environment during visitation times (notify nurse prior to leaving bedside) 25. Consider appropriateness of medical or non-biomedical electronics technician 26. Set up voiding schedule as appropriate (every 2 hours) Outcome: Progressing Note: Evaluation of progress towards goal: free of fall this shift Problem: Pain Goal: Patient goal is pain score less than 4, able to rest, and participant in treatment plan as appropriate Description: INTERVENTIONS: 1. Encourage patient or legal personal banking representative to report early pain and ask for pain medicine when needed 2. Assess pain using appropriate pain scale and include the scale used when documenting 3. Administer analgesics based on type and severity of pain and evaluate response within appropriate time frame 4. Implement non-pharmacological measures as appropriate and evaluate response 5. Consider cultural and social influences on pain and pain management 6. Notify LIP if interventions ineffective or patient reports new pain 7. Monitor vital signs including pulse ox, end-tidal CO2 based on pain intervention 8. Reassess pain per policy 9. Teach patient or legal personal banking representative interventions for comforting Outcome: Progressing Note: Evaluation of progress towards goal: denies, lidocaine patch to low back per order, continue to monitor and provide comfort measures Problem: Safety Goal: Patient will be injury free during hospitalization Description: INTERVENTIONS: 1. Assess patient's risk for falls and implement fall prevention plan of care per policy 2. Provide and maintain a safe environment 3. Proper use of double Identifiers 4. Medication administration using the 5 rights 5. Hand hygiene 6. Specimens are labeled at the bedside 7. Instruct patient/ patient personal banking representative about use of safety devices 8. Include patient/ patient personal banking representative in decisions related to safety Outcome: Progressing Note: Evaluation of progress towards goal: injury free this shift, safety measures maintained Problem: Safety Goal: Patient will be injury free during hospitalization Description: INTERVENTIONS: 1. Assess patient's risk for falls and implement fall prevention plan of care per policy 2. Provide and maintain a safe environment 3. Proper use of double Identifiers 4. Medication administration using the 5 rights 5. Hand hygiene 6. Specimens are labeled at the bedside 7. Instruct patient/ patient personal banking representative about use of safety devices 8. Include patient/ patient personal banking representative in decisions related to safety Outcome: Progressing Note: Evaluation of progress towards goal: injury free this shift, safety measures maintained Problem: Infection Goal: Absence of infection during hospitalization Description: INTERVENTIONS 1. Assess and monitor for signs and symptoms of infection. 2. Monitor lab/diagnostic results. 3. Monitor all insertion sites i.e., indwelling lines, tubes and drains. 4. Monitor endotracheal (as able) and nasal secretions for changes in amount and color. 5. Administer medications as ordered. 6. Instruct and encourage patient and family to use good hand hygiene technique. 7. Identify and instruct patient/patient personal banking representative in use of appropriate isolation precautions for identified infection/symptoms. 8. Provide and discuss with patient/patient personal banking representative on educational MDRO sheet. 9. Encourage and monitor nutritional status daily and consult water commissioner if indicated. 10. Implement neutropenic guidelines as needed. Outcome: Progressing Note: Evaluation of progress towards goal: WBC wnl, continue to monitor Problem: Discharge Planning Goal: Discharge to post-acute care, other facility, or home with appropriate resources Description: Patient's goal is: INTERVENTIONS 1. Conduct assessment to determine patient/family and health care team treatment goals, and need for post-acute services based on payer coverage, community resources, and patient preferences, and barriers to discharge 2. Coordinate with Social work, Care Navigation, and Utilization Review to arrange appropriate level of services according to patient's needs based on patient preference and payer coverage in collaboration with the physician and health care team 3. Address psychosocial, clinical, and financial barriers to discharge as identified in assessment in conjunction with the patient/family and health care team 4. Consult appropriate ancillary services (i.e.. PT/OT/ST, etc) as needed 5. Communicate with and update the patient/family, physician, and health care team regarding progress on the discharge plan 6. Identify discharge learning needs (meds, wound care, etc). 7. Arrange for needed discharge transportation as appropriate Outcome: Progressing Note: Evaluation of progress towards goal: in progress for snf Problem: Discharge Planning Goal: Discharge to post-acute care, other facility, or home with appropriate resources Description: Patient's goal is: INTERVENTIONS 1. Conduct assessment to determine patient/family and health care team treatment goals, and need for post-acute services based on payer coverage, community resources, and patient preferences, and barriers to discharge 2. Coordinate with Social work, Care Navigation, and Utilization Review to arrange appropriate level of services according to patient's needs based on patient preference and payer coverage in collaboration with the physician and health care team 3. Address psychosocial, clinical, and financial barriers to discharge as identified in assessment in conjunction with the patient/family and health care team 4. Consult appropriate ancillary services (i.e.. PT/OT/ST, etc) as needed 5. Communicate with and update the patient/family, physician, and health care team regarding progress on the discharge plan 6. Identify discharge learning needs (meds, wound care, etc). 7. Arrange for needed discharge transportation as appropriate Outcome: Progressing Note: Evaluation of progress towards goal: in progress for snf Problem: Potential for Compromised Skin Integrity Goal: Skin integrity is maintained or improved Description: Patient's goal is: INTERVENTIONS 1. Perform initial skin assessment on admission and as needed 2. Turn patient every 2 hours and PRN 3. Relieve pressure to bony prominences 4. Avoid shearing 5. Keep skin clean and dry 6. Alternate a full bath with partial baths for elderly 7. Apply lotion/moisturizer on skin 8. Monitor patient's hygiene practices 9. Float heels 10. Collaborate with interdisciplinary team and initiate plans and interventions as needed Outcome: Progressing Note: Evaluation of progress towards goal: skin intact, moisture management due to incontinent Problem: Potential for Compromised Skin Integrity Goal: Patient's nutritional intake is adequate Description: Patient's goal is: INTERVENTIONS 1. Assess and monitor food intake and supplements, patient food preferences, nausea, vomiting, labs, oral cavity (gums, teeth, tongue, mucosa), proper denture fit, and cultural beliefs 2. Monitor for signs of hypoglycemia and hyperglycemia 3. Collaborate with interdisciplinary team and initiate plan and interventions as ordered 4. Monitor patient's weight 5. Assist patient with meals/food selection 6. Assist patient with eating 7. Allow adequate time for meals 8. Provide pleasant environment during mealtime 9. Increase social contact during mealtimes 10. Plan activities to conserve energy 11. Encourage/perform oral hygiene as appropriate 12. Encourage patient to take dietary supplement as ordered 13. Collaborate with clinical water commissioner 14. Include patient/ patient's personal banking representative in decisions related to nutrition Outcome: Progressing Note: Evaluation of progress towards goal: good intake Problem: Urinary Incontinence Goal: Perineal skin integrity is maintained or improved Description: INTERVENTIONS 1. Assess genitourinary system, perineal skin, labs (urinalysis), and history of incontinence to include past management, aggravating, and alleviating factors 2. Keep skin clean and dry 3. Apply skin protectant 4. Develop skin care regimen 5. Provide privacy when changing patients incontinence device to maintain their dignity 6. Consider placing an indwelling catheter 7. Collaborate with interdisciplinary team and initiate plans and interventions as needed Outcome: Progressing Note: Evaluation of progress towards goal: continues to have incontinence, skin intact Problem: Activity Intolerance/Impaired Mobility Goal: Mobility/activity is maintained at optimum level for patient Description: Patient's goal is: INTERVENTIONS 1. Assess and monitor patient barriers to mobility and need for assistive/adaptive devices 2. Assess patient's emotional response to limitations 3. Collaborate with interdisciplinary teams and initiate plans and interventions as ordered 4. Encourage independent activity per tolerance 5. Maintain proper body alignment 6. Perform active/passive ROM as tolerated/ordered 7. Coordinate activities to conserve energy 8. Reposition patient 9. Ensure adequate rest/sleep time Outcome: Progressing Note: Evaluation of progress towards goal: 2 assist or theresa steady to transfer Problem: Communication Impairment Goal: Ability to express needs and understand communication Description: INTERVENTIONS 1. Assess patient's communication skills and ability to understand information 2. Provide alternate method of communication if needed i.e. ipad, sign board, pen/paper 3. Collaborate with Speech Therapy to develop effective communication strategies 4. Include patient/patient personal banking representative in decisions related to communication Outcome: Progressing Note: Evaluation of progress towards goal: confused but able to express self Problem: Potential for Aspiration Goal: Patient's risk of aspiration is minimized Description: INTERVENTIONS 1. Assess and monitor vital signs, respiratory status, and labs (WBC) 2. Monitor for signs of aspiration (tachypnea, cough, rales, wheezing, cyanosis, fever) 3. Assess and monitor patient's ability to swallow 4. Place patient up in chair to eat if possible 5. Elevate head of bed 90 degrees to eat if unable to get patient up into chair 6. Supervise patient during oral intake 7. Instruct patient to take small bites 8. Instruct patient to take small single sips when taking liquids 9. Follow patient-specific strategies generated by speech pathologist 10. Complete bedside swallow screen if appropriate and take actions as indicated. 11. Administer prescribed medications and monitor effects Outcome: Progressing Note: Evaluation of progress towards goal: aspiration precautions maintianed Problem: Anxiety Goal: Anxiety is at manageable level Description: Patient's goal is: INTERVENTIONS 1. Assess and monitor patient's anxiety level 2. Monitor for signs and symptoms of anxiety both physical and emotional (heart palpitations, chest pain, shortness of breath, headaches, nausea, feeling jumpy, restlessness, irritable, apprehensive) 3. Reorient/orient patient to unit/surroundings 4. Explain treatment plan 5. Explain tests/procedures prior to initiation 6. Encourage participation in care 7. Encourage verbalization of concerns/fears 8. Assess coping mechanisms 9. Assist in developing anxiety-reducing skills 10. Administer complimentary therapies 11. Manage patient's environment 12. Limit or eliminate stimulants such as caffeine and nicotine 13. Collaborate with ancillary departments 14. Include patient/patient personal banking representative in decisions related to anxiety Outcome: Progressing Note: Evaluation of progress towards goal: voices feelings and needs, calm and cooperative this day Problem: Potential for Inadequate Tissue Perfusion - Venous Goal: Tissue perfusion is adequate - venous Description: Patient's goal is: INTERVENTIONS 1. Assess and monitor skin color and temperature, skin integrity, pulses, capillary refill, edema, pain in extremities and Homans' sign 2. Monitor for signs and symptoms (dyspnea, tachypnea, and tachycardia) 3. Encourage ambulation/activity per patient's tolerance and physician order 4. Elevate feet when in chair 5. Encourage patient to do ankle pump exercises 6. Apply anti-embolism stockings/devices as ordered Outcome: Progressing Note: Evaluation of progress towards goal: no issues Problem: Moderate - High Risk Fall Score Description: Valenzuela Fall Score of =/> 25 or indicated by [facility] Assessment Goal: Patient should be free from fall Description: Interventions: 1. [place] to environment 2. Hourly rounds addressing the 4 P's (Pain, Positioning, Possessions, Potty) 3. Clear area of hazards (spills, clutter, electrical cords, unnecessary equipment) 4. Place equipment (bed & TV controls, call light, phone, urinal) within reach 5. Encourage patient to wear glasses and hearing aides as appropriate 6. Maintain bed in lowest position 7. Lock wheels on bed/wheelchair 8. Provide adequate lighting, including night light 9. Assess need for additional bedding, food/fluids, pain med's prior to sleep/routinely 10. Provide gripper slippers or personal non-skid footwear 11. Teach patient and patient personal banking representative to maintain environment for safety and engage in all aspects of fall prevention program 12. Remind patient to call for help before getting out of bed 13. Initiate bed/chair/exit alarms supportive devices as appropriate, (chair wedge, no-skid floor mat, raised edge mattress, hip protectors) 14. Locate patient bed assignment for optimal visualization 15. Evaluate and identify Safe Patient Handling Equipment needs 16. Provide supervision when out of bed or chair 17. Utilize gait belt as needed to assist with ambulation 18. Place adaptive equipment (cane, walker) within reach 19. Request patient personal banking representative bring adaptive equipment/mobility aids from home or obtain and provide as needed 20. Consult pharmacy regarding effects of med's affecting mobility, cognition, and alternatives 21. Obtain physician order for PT if risk factors associated with mobility are present 22. Obtain physician order for OT as appropriate 23. Utilize diversional activities 24. Educate patient and patient personal banking representative how to maintain a safe environment during visitation times (notify nurse prior to leaving bedside) 25. Consider appropriateness of medical or non-biomedical electronics technician 26. Set up voiding schedule as appropriate (every 2 hours) Outcome: Progressing Note: Evaluation of progress towards goal: free of fall this shift Problem: Inadequate Coping Goal: Demonstrates and verbalizes ability to cope effectively Description: Patient's goal is: INTERVENTIONS 1. Patient is able to verbalize feelings related to emotional state 2. Encourage verbalization of feelings, perceptions, fears, stressors, loss of loved ones 3. Encourage verbalization of problems out of their control 4. Encourage participation in care and self management 5. Inform patient of all treatment/care prior to providing care 6. Collaborate with pastoral/spiritual care, social scientist, mental health counselor as needed. 7. Instruct patient on diversional activities such as physical activity, distraction, and deep breathing exercises to assist with coping 8. Involve patient's personal banking representative in care Outcome: Progressing Note: Evaluation of progress towards goal: no issues DISCHARGE PLANNING NOTE Referral sent to [facility] (P# ; F# ) 06/21/25 1422 Services Requested Patient expects to be discharged to: SNF Does the patient wish to have family/friend/caregiver involved in their discharge planning? Yes Does the patient plan to return home to a community setting? No, patient to discharge to facility-based provider. See Discharge Disposition Discharge Disposition SNF Facility/Service Name NA SNF Name [facility] Does the patient need discharge transportation arranged? Yes Transportation Arranged Ambulance Mobility issues discussed with transportation provider Yes Patient choice offered Yes List Provided Yes [facility] List Provided Group Home Facility Financial Disclosure Provided for In-Network Referral Yes DISCHARGE PLANNING NOTE CN spoke w pts , SNF choice is [facility]. She did n ot have a 2nd choice. CN asked her to review list for dditional choices. CN tasked for referral to [facility]. Barriers: SNF accept. Will need precert. CTbrain.Rohini Mcintyre RN DISCHARGE PLANNING NOTE PT/OT rec SNF. CN called and left Voicemail for pts . Pt not appropriate for [facility] I[facility]. Need SNF choices. CN also sent SNF list Via careport to pts cell phone to select choices. Await response. Rohini Mcintyre RN Occupational Therapy Re-Evaluation Discharge Recommendations for Safe Patient Transition Discharge Recommendations: Post acute - moderate Post Acute Moderate Rehab Needs: Recommend moderate intensity rehab, Tolerate 1-2 hrs of therapy 3-5 days/wk, Subacute or chronic functional impairment Current Impairments Informing Therapy Recommendation: Ambulation status/safety, Cognition, Fall risk, ADL status, Endurance level, Communication needs Modified [place] Level of Disability: Moderately severe disability 0= No symptom at all 1= No significant disability despite symptoms: able to carry out all usual duties and activities 2= Slight disability: unable to carry out all previous activities, but able to look after own affairs without assistance 3= Moderate disability: requiring some help, but able to walk without assistance 4= Moderately severe disability: unable to walk without assistance and unable to attend to own bodily needs without assistance 5- Severe disability: bedridden, incontinent and requiring constant nursing care and attention. 6= 6 Clicks: Daily Activity Putting on and taking off regular lower body clothing?: A lot Bathing (including washing, rinsing, drying)?: A lot Toileting, which includes using toilet, bedpan or urinal?: A lot Putting on and taking off regular upper body clothing?: A lot Taking care of personal grooming such as brushing teeth?: A lot Eating meals?: None Scoring Daily Activity Raw Score: 14 [facility] G Code Modifier: CK Modified chip index: 5/20 Occupational Profile Patient seen for OT eval on 06-19-2025. Patient now seen for OT re-eval to update goals due to improved level of alertness and ability to participate in therapy. Patient admitted with left side weakness and aphasia. 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 History of A-fib on coumadin and diabetic. Continue to recommend intermediate facility. Patient with episode of decreased responsiveness with listing to the left while on commode for 1-2 minutes. Once alert patient was nauseated. RNLauren called to room. Patient assisted from toilet to chair and MD in room. See below for past medical and past surgical history. Past Medical History: Diagnosis Date [place] BPH (benign prostatic hyperplasia) Broken nose CVA [place]cerebral vascular [place]/17/2025 [place] Epistaxis Hypertension Hyponatremia secondary to SIADH Hypothyroid Lumbar spondylosis TIA (transient ischemic attack) Past Surgical History: Procedure Laterality Date NECK SURGERY plate in neck per Therapy Plan Need for skilled Occupational Therapy to address deficits in ADL independence and functional mobility due to a status decline resulting from left side weakness and aphasia. OT Treatment/Interventions: ADL retraining, Cognitive reorientation, Balance, Bed mobility, Functional transfer training, Patient/family training, Home management, Functional activities OT Frequency: 4-5days/week OT Duration: jul 19, 2025 Assessment Patient Assessment Therapy Problem List: Decreased ADL status, Decreased balance, Decreased cognition, Decreased endurance, Decreased high-level ADLs, Decreased mobility, Decreased safe judgement during ADL, Decreased self-care trans Patient Response to Treatment: Slow progress, decreased activity tolerance, Slow progress, cognitive deficits Mood/Affect: Appropriate for circumstances Rehab Prognosis: Good, With continued OT status post acute discharge Visit RN Communication: Yes Medical Record Reviewed: Yes OT Type of Visit: Re-Evaluation Precautions Activity: advance activity as tolerated per early mobility guidelines. Equipment: waker, chair alarm, gait belt, telemetry. Telemetry/Elementary Instructional Coach: Yes Oxygen Used: room air Other: (S) fall risk, cognition, unresponsive episode while on commode, listing to left with blank stare Pain Assessment Pain Assessment: No/denies pain ADL / IADL Where Assessed: Edge of bed, At toilet, Chair (patient was seated at edge of bed upon writers arrival. patient at end of session left up in chair with call light in reach and RN and MD in room.) Eating Assistance: Setup Grooming Assistance: Mod assist Bathing/Showering Assistance: Mod assist Toilet/Commode Assistance: Mod assist UE Dressing Assistance: Mod assist LE Dressing Assistance: Mod assist Footwear Assistance: Mod assist Other: (S) patient was able to ambulate into bathroom with walker and min assist. Min verbal cues for safety. Mod assist to doff brief and gown as patient was incontinent. Patient while on toilet went unresponsive with blank stare and listing to the left. Patient was not able to verbalize or follow commands. Lauren KHAN called. Patient after 1-2 minutes aroused. patient was able to answer his name, recall his sons names. patient moved from toilet to recliner with mod assist of two. Patient was able to stand at chairside after this to don depend with walker and min assist of two. Blood pressure 100/73 upon entry and after episode 98/65. MD in room for assessment. Strength appears baseline. Home Management - IADL Other: (S) patient was able to ambulate into bathroom with walker and min assist. Min verbal cues for safety. Mod assist to doff brief and gown as patient was incontinent. Patient while on toilet went unresponsive with blank stare and listing to the left. Patient was not able to verbalize or follow commands. Lauren KHAN called. Patient after 1-2 minutes aroused. patient was able to answer his name, recall his sons names. patient moved from toilet to recliner with mod assist of two. Patient was able to stand at chairside after this to don depend with walker and min assist of two. Blood pressure 100/73 upon entry and after episode 98/65. MD in room for assessment. Strength appears baseline. Hearing / Speech / Vision Hearing: Hard of hearing/hearing concerns Speech: Other (Comment) (very slow to respond.) Cognition Overall Cognitive Status: Exceptions to Within Functional Limits Arousal/Alertness: Delayed responses to stimuli Memory: Decreased immediate memory Orientation Level: Oriented to person, Other (Comment) (able to reacall kids names and and city where he lives. Unable to recall place, month, year or age.) Following Commands: Follows one step commands with repetition, Follows one step commands with increased time Insight of Deficits: Decreased awareness of deficits Problem Solving: Nonfunctional Interfering Components: Processing speed, Working memory, Hearing Sensation Overall Sensation Status: Within Functional Limits Bed Mobility Other: patient was seated at edge of bed upon writers arrival. Transfers Sit to Stand: Min assist, Verbal cues (min assist of two.) Stand to Sit: Min assist, Verbal cues (min assist of two) Floor Transfer: (initally min assist of one with verbal cues for stand to sit. Patient had episode while on commode of unresponsivenss, blank stare and listing to the left. Lauren KHAN called to room Patient assisted to chair with mod assist of two.) Gait Gait Assistance: Min assist, Verbal cues Assistive Device: Rolling walker Gait Distance: patient was able to ambulate into bathroom with walker and min assist. Balance Sitting Balance: Static: Good Sitting Balance: Dynamic: Fair (fair+) Standing Balance: Static: Fair Standing Balance: Dynamic: Fair (fair-) Other: with walker RUE Assessment: Within Functional Limits LUE Assessment: Within Functional Limits (hand grasp 4/5 otherwisr functional) Activity Tolerance Endurance: Tolerates <30 minutes activity WITHOUT vital sign changes Other: room air Plan Occupational Therapy Care Plan Occupational Therapy Care Plan (Active) Template: OT - Occupational Therapy Problem: Activity Tolerance Dates: Start: 06/21/25 Disciplines: OT Goal: Tolerate 30 minutes of activity WITH rest breaks Dates: Start: 06/21/25 Expected End: 07/19/25 Description: Goal Description: Disciplines: OT Problem: Bathing LB Dates: Start: 06/21/25 Disciplines: OT Goal: Patient will perform bathing LB with Contact Guard Dates: Start: 06/21/25 Expected End: 07/19/25 Description: Goal Description: Disciplines: OT Problem: Bathing UB Dates: Start: 06/21/25 Disciplines: OT Goal: Patient will perform bathing UB with Set-Up Dates: Start: 06/21/25 Expected End: 07/19/25 Description: Goal Description: Disciplines: OT Problem: Bed Mobility Dates: Start: 06/21/25 Disciplines: OT Goal: Patient will perform bed mobility Independently Dates: Start: 06/21/25 Expected End: 07/19/25 Description: Goal Description: Disciplines: OT Problem: Cognition Dates: Start: 06/21/25 Disciplines: OT Goal: Improve cognition Dates: Start: 06/21/25 Expected End: 07/19/25 Description: Engage in cognitive tasks and increase cognition to be alert and oriented times 3 consistently. Disciplines: OT Problem: Dressing LB Dates: Start: 06/21/25 Disciplines: OT Goal: Patient will perform dressing LB with Contact Guard Dates: Start: 06/21/25 Expected End: 07/19/25 Description: Goal Description: Disciplines: OT Problem: Dressing UB Dates: Start: 06/21/25 Disciplines: OT Goal: Patient will perform dressing UB with Set-Up Dates: Start: 06/21/25 Expected End: 07/19/25 Description: Goal Description: Disciplines: OT Problem: Functional Mobility Dates: Start: 06/21/25 Disciplines: OT Goal: Patient will perform functional mobility with Contact Guard Dates: Start: 06/21/25 Expected End: 07/19/25 Description: Goal Description: Disciplines: OT Problem: Grooming Dates: Start: 06/21/25 Disciplines: OT Goal: Patient will perform grooming with Contact Guard Dates: Start: 06/21/25 Expected End: 07/19/25 Description: Goal Description: Disciplines: OT Problem: Sitting Balance Dates: Start: 06/21/25 Disciplines: OT Goal: Improve balance to good Dates: Start: 06/21/25 Expected End: 07/19/25 Description: Good dynamic balance. Disciplines: OT Problem: Standing Balance Dates: Start: 06/21/25 Disciplines: OT Goal: Improve balance to good Dates: Start: 06/21/25 Expected End: 07/19/25 Description: Good static balance. Disciplines: OT Problem: Toilet Transfers Dates: Start: 06/21/25 Disciplines: OT Goal: Patient will perform toilet transfers with Modified [place] Dates: Start: 06/21/25 Expected End: 07/19/25 Description: Goal Description: Disciplines: OT Problem: Toileting Dates: Start: 06/21/25 Disciplines: OT Goal: Patient will perform toileting with Contact Guard Dates: Start: 06/21/25 Expected End: 07/19/25 Description: Goal Description: Disciplines: OT Problem: Transfers Dates: Start: 06/21/25 Disciplines: OT Goal: Patient will perform transfers with Contact Guard Dates: Start: 06/21/25 Expected End: 07/19/25 Description: Goal Description: Disciplines: OT Occupational Therapy Care Plan (Resolved) There are no resolved problems. Principal Problem: CVA (cerebral vascular accident) ([facility]) Physical Therapy Re-Evaluation Discharge Recommendations for Safe Patient Transition Discharge Recommendations: Post acute - moderate Post Acute Moderate Rehab Needs: Recommend moderate intensity rehab, Tolerate 1-2 hrs of therapy 3-5 days/wk, Subacute or chronic functional impairment Current Impairments Informing Therapy Recommendation: Ambulation status/safety, Cognition, Fall risk 6 Clicks: Basic Mobility Turning from your back to your side while in a flat bed without using bed rails?: A little Moving from lying on your back to sitting on side of flat bed without using bed rails?: A little Moving to and from bed to a chair (including w/c)?: A little Standing up from a chair using your arms (e.g. w/c or bedside chair)?: A lot To walk in hospital room?: A little Climbing 3-5 steps with a railing?: Total Scoring 6 Clicks: Basic Mobility Raw Score: 15 CMS G Code Modifier: CK SwePASS score = 23/36 Pt seen this date for PT re-eval to assess mobility and discharge plan as pt more alert this date than initial eval. See initial eval from 06/19 for details of admit for L sided weakness and aphasia. MRI (-) for acute infarct. EEG - generalized background slowing Echo - EF 40-45% Impression: seizures vs metabolic encephalopathy due to hyponatremia. Pt with episode of decreased responsiveness, L lean during session this date and is cognitively impaired - oriented to self only, slow to respond. Past Medical History: Diagnosis Date At[place] BPH (benign prostatic hyperplasia) Broken nose CVA [place]cerebral [place] 06/17/2025 [place] Epistaxis Hypertension Hyponatremia secondary to SIADH Hypothyroid Lumbar spondylosis TIA (transient ischemic attack) Past Surgical History: Procedure Laterality Date NECK SURGERY plate in neck per Modified [place] Level of Disability: Moderately severe disability 0= No symptom at all 1= No significant disability despite symptoms: able to carry out all usual duties and activities 2= Slight disability: unable to carry out all previous activities, but able to look after own affairs without assistance 3= Moderate disability: requiring some help, but able to walk without assistance 4= Moderately severe disability: unable to walk without assistance and unable to attend to own bodily needs without assistance 5- Severe disability: bedridden, incontinent and requiring constant nursing care and attention. 6= Therapy Plan Need for skilled Physical Therapy to address deficits in functional mobility due to a status decline resulting from admit for stroke work up. PT Treatment/Interventions: Functional transfer training, LE strengthening/ROM, Patient/family training, Equipment eval/education, Balance, Bed mobility, Functional activities, Neuromuscular reeducation PT Frequency: 4-5days/week PT Duration: 07/13/25 Assessment Patient Assessment Therapy Problem List: Decreased balance, Decreased cognition, Decreased mobility, Decreased safe judgement during ADL, Decreased LE strength Patient Response to Treatment: Tolerated evaluation without adverse reaction, Slow progress, cognitive deficits Mood/Affect: Flat Rehab Prognosis: Good, With continued PT status post acute discharge Visit RN Communication: Yes Medical Record Reviewed: Yes PT Type of Visit: Re-Evaluation Precautions Activity: act as tolerated, reg diet with fluid restriction Equipment: gait belt, wheeled walker, IV, chair/bed alarm Telemetry/Elementary Instructional Coach: Yes Oxygen Used: room air Other: (S) fall risk, confusion. Episode of decreased responsiveness during this session Subjective Physical Therapy Comments: Pt more alert this date, slow to respond and oriented to self only. Able to recall where he lives and his 's name but reports his son is 11 yo. Pain Assessment Pain Assessment: No/denies pain Home Living Other : see initial eval for details of home Prior Function Other: see initial eval for details of PLOF ADL / IADL Hand Dominance: Right Hearing / Speech / Vision Hearing: Hard of hearing/hearing concerns (Pt reports he wears hearing aides but not present this date) Speech: Delayed responses Current Vision: Wears glasses only for reading Other: Vision appears intact this date Cognition Overall Cognitive Status: Exceptions to Within Functional Limits Arousal/Alertness: Delayed responses to stimuli Attention Span: Attends with cues to redirect Memory: Decreased recall of recent events, Decreased recall of biographical information, Decreased short term memory Orientation Level: Oriented to person, Disoriented to place, Disoriented to time, Disoriented to age (Pt able to recall 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 Per RN, pt had sat up on his own few minutes prior with bed alarm going off and pt remained at side of bed with breakfast tray in front of him. Pt remained up in chair after session with chair alarm intact. Transfers Sit to Stand: Min assist, Verbal cues (2 assist) Stand to Sit: Min assist (2 assist) Toilet Transfers: Min assist (2 assist) Other: (S) Cues for safe hand placement with walker and to initiate mobiliy. While on toilet - pt had episode of decreased responsivement, leaning to the L with blank stare. RN alerted. Pt with increased alertness after 2-3 mins and c/o nausea with wretching but no emesis. Pt transferred from toilet to recliner chair with Mod A x 2 stand pivot. Once in chair, pt more reponsive and back to baseline. BP 98/65 Gait Base of Support: Narrow Pattern: Decreased shayna, L Decreased foot clearance, R Decreased foot clearance Gait Assistance: Min assist, Verbal cues Assistive Device: Rolling walker Gait Distance: Pt amb 12 feet from bed to toilet Limiting Factors to Gait: Decreased safety, Cognition/difficulty following directions Other: Pt needs assist to initiate gait and walker safety. Balance Sitting Balance: Static: Good Sitting Balance: Dynamic: (Fair+) Standing Balance: Static: Fair Standing Balance: Dynamic: (Fair-) Other: Pt able to sit unsupported at EOB without LOB. Walker support in standing RLE Assessment: (4/5 throughout) LLE Assessment: (4/5 throughout) Activity Tolerance Endurance: Tolerates 30 minutes activity with rest breaks Other: BP on low side this AM - 100/73 prior to session. Pt with episode of decreased responsiveness, L lean, blank stare this date with BP 98/65. Pt limited by confusion and slow processing Plan Physical Therapy Care Plan Physical Therapy Care Plan (Active) Template: PT - Physical Therapy Problem: Activity Tolerance Dates: Start: 06/21/25 Disciplines: PT Goal: Tolerate > 30 minutes of activity WITH rest breaks Dates: Start: 06/21/25 Expected End: 07/13/25 Description: Goal Description: For seated and standing activities for improved mobility Disciplines: PT Problem: Bed Mobility Dates: Start: 06/21/25 Disciplines: PT Goal: Patient will perform bed mobility with Supervision Dates: Start: 06/21/25 Expected End: 07/13/25 Description: Goal Description: Disciplines: PT Problem: Gait Dates: Start: 06/21/25 Disciplines: PT Goal: Patient will perform gait with Stand By Assist Dates: Start: 06/21/25 Expected End: 07/13/25 Description: 100 feet with least restrictive AD for safe mobility Goal Description: Disciplines: PT Problem: Sitting Balance Dates: Start: 06/19/25 Disciplines: PT Goal: Improve balance to good Dates: Start: 06/21/25 Expected End: 07/14/25 Description: Static Dynamic with UE support as needed for safe ADLs and transfers Disciplines: PT Problem: Standing Balance Dates: Start: 06/21/25 Disciplines: PT Goal: Improve balance to good Dates: Start: 06/21/25 Expected End: 07/13/25 Description: Static Dynamic with UE support for safe mobility, decreased fall risk Disciplines: PT Problem: Transfers Dates: Start: 06/21/25 Disciplines: PT Goal: Patient will perform transfers with Stand By Assist Dates: Start: 06/21/25 Expected End: 07/13/25 Description: Goal Description: with RW support Disciplines: PT Physical Therapy Care Plan (Resolved) There are no resolved problems. Principal Problem: CVA (cerebral vascular accident) ([facility]) Problem: Pain Goal: Patient goal is pain score less than 4, able to rest, and participant in treatment plan as appropriate Description: INTERVENTIONS: 1. Encourage patient or legal personal banking representative to report early pain and ask for pain medicine when needed 2. Assess pain using appropriate pain scale and include the scale used when documenting 3. Administer analgesics based on type and severity of pain and evaluate response within appropriate time frame 4. Implement non-pharmacological measures as appropriate and evaluate response 5. Consider cultural and social influences on pain and pain management 6. Notify LIP if interventions ineffective or patient reports new pain 7. Monitor vital signs including pulse ox, end-tidal CO2 based on pain intervention 8. Reassess pain per policy 9. Teach patient or legal personal banking representative interventions for comforting Outcome: Progressing Note: Evaluation of progress towards goal: patient denies pain at this time Problem: Safety Goal: Patient will be injury free during hospitalization Description: INTERVENTIONS: 1. Assess patient's risk for falls and implement fall prevention plan of care per policy 2. Provide and maintain a safe environment 3. Proper use of double Identifiers 4. Medication administration using the 5 rights 5. Hand hygiene 6. Specimens are labeled at the bedside 7. Instruct patient/ patient personal banking representative about use of safety devices 8. Include patient/ patient personal banking representative in decisions related to safety Outcome: Progressing Note: Evaluation of progress towards goal: Patient injury free at current time Problem: Infection Goal: Absence of infection during hospitalization Description: INTERVENTIONS 1. Assess and monitor for signs and symptoms of infection. 2. Monitor lab/diagnostic results. 3. Monitor all insertion sites i.e., indwelling lines, tubes and drains. 4. Monitor endotracheal (as able) and nasal secretions for changes in amount and color. 5. Administer medications as ordered. 6. Instruct and encourage patient and family to use good hand hygiene technique. 7. Identify and instruct patient/patient personal banking representative in use of appropriate isolation precautions for identified infection/symptoms. 8. Provide and discuss with patient/patient personal banking representative on educational MDRO sheet. 9. Encourage and monitor nutritional status daily and consult water commissioner if indicated. 10. Implement neutropenic guidelines as needed. Outcome: Progressing Note: Evaluation of progress towards goal: No s/s of infection at this time Problem: Knowledge Deficit Goal: Patient/patient personal banking representative demonstrates understanding of disease process, treatment plan, medications, and discharge instructions Description: INTERVENTIONS 1. Complete learning assessment and assess knowledge base 2. Provide teaching at level of understanding 3. Provide teaching via preferred learning method(s) Outcome: Progressing Note: Evaluation of progress towards goal: Pt edu on plan Problem: Discharge Planning Goal: Discharge to post-acute care, other facility, or home with appropriate resources Description: Patient's goal is: INTERVENTIONS 1. Conduct assessment to determine patient/family and health care team treatment goals, and need for post-acute services based on payer coverage, community resources, and patient preferences, and barriers to discharge 2. Coordinate with Social work, Care Navigation, and Utilization Review to arrange appropriate level of services according to patient's needs based on patient preference and payer coverage in collaboration with the physician and health care team 3. Address psychosocial, clinical, and financial barriers to discharge as identified in assessment in conjunction with the patient/family and health care team 4. Consult appropriate ancillary services (i.e.. PT/OT/ST, etc) as needed 5. Communicate with and update the patient/family, physician, and health care team regarding progress on the discharge plan 6. Identify discharge learning needs (meds, wound care, etc). 7. Arrange for needed discharge transportation as appropriate Outcome: Progressing Note: Evaluation of progress towards goal: Problem: Potential for Compromised Skin Integrity Goal: Skin integrity is maintained or improved Description: Patient's goal is: INTERVENTIONS 1. Perform initial skin assessment on admission and as needed 2. Turn patient every 2 hours and PRN 3. Relieve pressure to bony prominences 4. Avoid shearing 5. Keep skin clean and dry 6. Alternate a full bath with partial baths for elderly 7. Apply lotion/moisturizer on skin 8. Monitor patient's hygiene practices 9. Float heels 10. Collaborate with interdisciplinary team and initiate plans and interventions as needed Outcome: Progressing Note: Evaluation of progress towards goal: skin integrity maintained Problem: Moderate - High Risk Fall Score Description: Valenzuela Fall Score of =/> 25 or indicated by [facility] Assessment Goal: Patient should be free from fall Description: Interventions: 1. [place] to environment 2. Hourly rounds addressing the 4 P's (Pain, Positioning, Possessions, Potty) 3. Clear area of hazards (spills, clutter, electrical cords, unnecessary equipment) 4. Place equipment (bed & TV controls, call light, phone, urinal) within reach 5. Encourage patient to wear glasses and hearing aides as appropriate 6. Maintain bed in lowest position 7. Lock wheels on bed/wheelchair 8. Provide adequate lighting, including night light 9. Assess need for additional bedding, food/fluids, pain med's prior to sleep/routinely 10. Provide gripper slippers or personal non-skid footwear 11. Teach patient and patient personal banking representative to maintain environment for safety and engage in all aspects of fall prevention program 12. Remind patient to call for help before getting out of bed 13. Initiate bed/chair/exit alarms supportive devices as appropriate, (chair wedge, no-skid floor mat, raised edge mattress, hip protectors) 14. Locate patient bed assignment for optimal visualization 15. Evaluate and identify Safe Patient Handling Equipment needs 16. Provide supervision when out of bed or chair 17. Utilize gait belt as needed to assist with ambulation 18. Place adaptive equipment (cane, walker) within reach 19. Request patient personal banking representative bring adaptive equipment/mobility aids from home or obtain and provide as needed 20. Consult pharmacy regarding effects of med's affecting mobility, cognition, and alternatives 21. Obtain physician order for PT if risk factors associated with mobility are present 22. Obtain physician order for OT as appropriate 23. Utilize diversional activities 24. Educate patient and patient personal banking representative how to maintain a safe environment during visitation times (notify nurse prior to leaving bedside) 25. Consider appropriateness of medical or non-biomedical electronics technician 26. Set up voiding schedule as appropriate (every 2 hours) Outcome: Progressing Note: Evaluation of progress towards goal: pt free from fall at this time Problem: Knowledge Deficit Goal: Patient/patient personal banking representative demonstrates understanding of disease process, treatment plan, medications, and discharge instructions Description: INTERVENTIONS 1. Complete learning assessment and assess knowledge base 2. Provide teaching at level of understanding 3. Provide teaching via preferred learning method(s) Outcome: Progressing Note: Evaluation of progress towards goal: Pt edu on plan Problem: Neurological Deficit Goal: Neurological status is stable or improving Description: Patient's goal is: INTERVENTIONS 1. Complete Neurological assessment as indicated/ordered 2. Initiate measures to prevent increased intracranial pressure 3. Monitor and assess patient's level of consciousness, motor function, sensory function, and level of assistance needed for ADLs 4. Monitor and report changes from baseline 5. Maintain blood pressure and fluid volume within ordered parameters to optimize cerebral perfusion and minimize risk of hemorrhage 6. Monitor labs and diagnostic tests 7. Administer anti-seizure medications as ordered 8. Maintain airway, patient safety and administer oxygen as ordered 9. Monitor patient for seizure activity, document and report duration and description of seizure to LIP 10. If seizure occurs, turn patient to side and suction secretions as needed 11. Reorient patient post seizure 12. Seizure pads on all 4 side rails 13. Instruct patient/family to notify RN of any seizure activity 14. Instruct patient/family to call for assistance with activity based on assessment 15. Utilize bleeding precautions if thrombolytic given Outcome: Progressing Note: Evaluation of progress towards goal: pt alert and oriented to person and age [facility] Transfer Accept Note I have received a request for transfer of primary service for this patient from the neurology team care of neurology attending, clinical handoff received from Neurology resident. [facility] will assume care as primary team of this patient 7:00 a.m. 06/21/2025. Problem: Medication Description: If medication is necessary, use low-risk medication that does not interfere with what matters to the older adult patient, mobility, or mentation across settings of care. Goal: Patient will be screened for high-risk medications once per stay Description: Interventions: 1. Pharmacist to perform medication review to screen for high-risk medications 2. Pharmacist to identify high-risk medications in the Plan of Care note 3. Pharmacist to make recommendations for follow-up in the Plan of Care note, if warranted Outcome: Completed Note: Medications individually and in combination may interfere with What Matters, Mentation, and safe Mobility because of the increased risk of confusion, delirium, unsteadiness and falls. Profile review indicates this patients has active orders for no high risk medications. Chart review also shows no change in renal function. DISCHARGE PLANNING NOTE Pt will need updated PT/OT notes sent to [facility]. When pt/ot worked w him yesterday they rec SNF, but he was much less alert. Pt doing better today. Therapy will work w him tomorrow morning 06/21 to see if IPR appropriate. Barriers: IPR accept, pt/ot to see, precert. Rohini Mcintyre, RN DISCHARGE PLANNING NOTE I received a voice mail from Franc at [facility] phone [phone], she says she has left a few messages for an update for patient. This is the only vm I have received. Sending an POPAPP chat to Rohini / Vivienne / Mesha with information Problem: Pain Goal: Patient goal is pain score less than 4, able to rest, and participant in treatment plan as appropriate Description: INTERVENTIONS: 1. Encourage patient or legal personal banking representative to report early pain and ask for pain medicine when needed 2. Assess pain using appropriate pain scale and include the scale used when documenting 3. Administer analgesics based on type and severity of pain and evaluate response within appropriate time frame 4. Implement non-pharmacological measures as appropriate and evaluate response 5. Consider cultural and social influences on pain and pain management 6. Notify LIP if interventions ineffective or patient reports new pain 7. Monitor vital signs including pulse ox, end-tidal CO2 based on pain intervention 8. Reassess pain per policy 9. Teach patient or legal personal banking representative interventions for comforting Outcome: Progressing Note: Evaluation of progress towards goal: pt unable to verbalize pain at this time FACES pain scale rating utilized no obvious signs of distress or pain Problem: Safety Goal: Patient will be injury free during hospitalization Description: INTERVENTIONS: 1. Assess patient's risk for falls and implement fall prevention plan of care per policy 2. Provide and maintain a safe environment 3. Proper use of double Identifiers 4. Medication administration using the 5 rights 5. Hand hygiene 6. Specimens are labeled at the bedside 7. Instruct patient/ patient personal banking representative about use of safety devices 8. Include patient/ patient personal banking representative in decisions related to safety Outcome: Progressing Note: Evaluation of progress towards goal: Patient injury free at current time Problem: Infection Goal: Absence of infection during hospitalization Description: INTERVENTIONS 1. Assess and monitor for signs and symptoms of infection. 2. Monitor lab/diagnostic results. 3. Monitor all insertion sites i.e., indwelling lines, tubes and drains. 4. Monitor endotracheal (as able) and nasal secretions for changes in amount and color. 5. Administer medications as ordered. 6. Instruct and encourage patient and family to use good hand hygiene technique. 7. Identify and instruct patient/patient personal banking representative in use of appropriate isolation precautions for identified infection/symptoms. 8. Provide and discuss with patient/patient personal banking representative on educational MDRO sheet. 9. Encourage and monitor nutritional status daily and consult water commissioner if indicated. 10. Implement neutropenic guidelines as needed. Outcome: Progressing Note: Evaluation of progress towards goal: No s/s of infection at this time Problem: Potential for Compromised Skin Integrity Goal: Skin integrity is maintained or improved Description: Patient's goal is: INTERVENTIONS 1. Perform initial skin assessment on admission and as needed 2. Turn patient every 2 hours and PRN 3. Relieve pressure to bony prominences 4. Avoid shearing 5. Keep skin clean and dry 6. Alternate a full bath with partial baths for elderly 7. Apply lotion/moisturizer on skin 8. Monitor patient's hygiene practices 9. Float heels 10. Collaborate with interdisciplinary team and initiate plans and interventions as needed Outcome: Progressing Note: Evaluation of progress towards goal: skin integrity maintained Goal: Patient's nutritional intake is adequate Description: Patient's goal is: INTERVENTIONS 1. Assess and monitor food intake and supplements, patient food preferences, nausea, vomiting, labs, oral cavity (gums, teeth, tongue, mucosa), proper denture fit, and cultural beliefs 2. Monitor for signs of hypoglycemia and hyperglycemia 3. Collaborate with interdisciplinary team and initiate plan and interventions as ordered 4. Monitor patient's weight 5. Assist patient with meals/food selection 6. Assist patient with eating 7. Allow adequate time for meals 8. Provide pleasant environment during mealtime 9. Increase social contact during mealtimes 10. Plan activities to conserve energy 11. Encourage/perform oral hygiene as appropriate 12. Encourage patient to take dietary supplement as ordered 13. Collaborate with clinical water commissioner 14. Include patient/ patient's personal banking representative in decisions related to nutrition Outcome: Progressing Note: Evaluation of progress towards goal: nutritional intake adequate Problem: Urinary Incontinence Goal: Perineal skin integrity is maintained or improved Description: INTERVENTIONS 1. Assess genitourinary system, perineal skin, labs (urinalysis), and history of incontinence to include past management, aggravating, and alleviating factors 2. Keep skin clean and dry 3. Apply skin protectant 4. Develop skin care regimen 5. Provide privacy when changing patients incontinence device to maintain their dignity 6. Consider placing an indwelling catheter 7. Collaborate with interdisciplinary team and initiate plans and interventions as needed Outcome: Progressing Note: Evaluation of progress towards goal: skin integrity maintained Problem: Neurological Deficit Goal: Neurological status is stable or improving Description: Patient's goal is: INTERVENTIONS 1. Complete Neurological assessment as indicated/ordered 2. Initiate measures to prevent increased intracranial pressure 3. Monitor and assess patient's level of consciousness, motor function, sensory function, and level of assistance needed for ADLs 4. Monitor and report changes from baseline 5. Maintain blood pressure and fluid volume within ordered parameters to optimize cerebral perfusion and minimize risk of hemorrhage 6. Monitor labs and diagnostic tests 7. Administer anti-seizure medications as ordered 8. Maintain airway, patient safety and administer oxygen as ordered 9. Monitor patient for seizure activity, document and report duration and description of seizure to LIP 10. If seizure occurs, turn patient to side and suction secretions as needed 11. Reorient patient post seizure 12. Seizure pads on all 4 side rails 13. Instruct patient/family to notify RN of any seizure activity 14. Instruct patient/family to call for assistance with activity based on assessment 15. Utilize bleeding precautions if thrombolytic given Outcome: Not Progressing Note: Evaluation of progress towards goal: pt oriented to person only unable to answer all other questions Problem: Activity Intolerance/Impaired Mobility Goal: Mobility/activity is maintained at optimum level for patient Description: Patient's goal is: INTERVENTIONS 1. Assess and monitor patient barriers to mobility and need for assistive/adaptive devices 2. Assess patient's emotional response to limitations 3. Collaborate with interdisciplinary teams and initiate plans and interventions as ordered 4. Encourage independent activity per tolerance 5. Maintain proper body alignment 6. Perform active/passive ROM as tolerated/ordered 7. Coordinate activities to conserve energy 8. Reposition patient 9. Ensure adequate rest/sleep time Outcome: Progressing Note: Evaluation of progress towards goal: Mobility/activity is maintained at optimum level for patient Problem: Moderate - High Risk Fall Score Description: Valenzuela Fall Score of =/> 25 or indicated by [facility] Assessment Goal: Patient should be free from fall Description: Interventions: 1. [place] to environment 2. Hourly rounds addressing the 4 P's (Pain, Positioning, Possessions, Potty) 3. Clear area of hazards (spills, clutter, electrical cords, unnecessary equipment) 4. Place equipment (bed & TV controls, call light, phone, urinal) within reach 5. Encourage patient to wear glasses and hearing aides as appropriate 6. Maintain bed in lowest position 7. Lock wheels on bed/wheelchair 8. Provide adequate lighting, including night light 9. Assess need for additional bedding, food/fluids, pain med's prior to sleep/routinely 10. Provide gripper slippers or personal non-skid footwear 11. Teach patient and patient personal banking representative to maintain environment for safety and engage in all aspects of fall prevention program 12. Remind patient to call for help before getting out of bed 13. Initiate bed/chair/exit alarms supportive devices as appropriate, (chair wedge, no-skid floor mat, raised edge mattress, hip protectors) 14. Locate patient bed assignment for optimal visualization 15. Evaluate and identify Safe Patient Handling Equipment needs 16. Provide supervision when out of bed or chair 17. Utilize gait belt as needed to assist with ambulation 18. Place adaptive equipment (cane, walker) within reach 19. Request patient personal banking representative bring adaptive equipment/mobility aids from home or obtain and provide as needed 20. Consult pharmacy regarding effects of med's affecting mobility, cognition, and alternatives 21. Obtain physician order for PT if risk factors associated with mobility are present 22. Obtain physician order for OT as appropriate 23. Utilize diversional activities 24. Educate patient and patient personal banking representative how to maintain a safe environment during visitation times (notify nurse prior to leaving bedside) 25. Consider appropriateness of medical or non-biomedical electronics technician 26. Set up voiding schedule as appropriate (every 2 hours) Outcome: Progressing Note: Evaluation of progress towards goal: pt free from fall at this time safety measures in place Physical Therapy Evaluation Discharge Recommendations for Safe Patient Transition Discharge Recommendations: Post acute - moderate Post Acute Moderate Rehab Needs: Recommend moderate intensity rehab, Tolerate 1-2 hrs of therapy 3-5 days/wk, Subacute or chronic functional impairment Current Impairments Informing Therapy Recommendation: Ambulation status/safety, Cognition, Fall risk 6 Clicks: Basic Mobility Turning from your back to your side while in a flat bed without using bed rails?: Total Moving from lying on your back to sitting on side of flat bed without using bed rails?: Total Moving to and from bed to a chair (including w/c)?: Total Standing up from a chair using your arms (e.g. w/c or bedside chair)?: Total To walk in hospital room?: Total Climbing 3-5 steps with a railing?: Total Scoring 6 Clicks: Basic Mobility Raw Score: 6 CMS G Code Modifier: CN SwePASS score = 4/36 Pt is an 85 yo male admit 06/17 with L sided weakness and aphasia while at Coumadin clinic. NIHSS = 13. Pt with recent hospitalization 06/02 s/p fall while adjusting lawn chair with nasal bone fracture and persistent epistaxis. CT brain - no acute CTA - R P1/P2 occlusion. TNK given and transfer to [facility]. On arrival, NIHSS = 0 CT perfusion - possible deficit L anterior temporal horn - likely artifact Speech therapy - moderate to severe receptive/expressive language deficits MRI brain - no acute infarct; mild small vessel ischemic changes EEG - abnormal due to the presence of generalized background slowing suggestive of bi-hemispheric cerebral dysfunction that can be seen in post ictal states, metabolic, hypoxic or toxic encephalopathies, sedative medication use or primary neurological disorders. Echo and carotid duplex pending Pt with confusion, agitation on 06/18 at shift change. Pt has been lethargic, not following commands 06/19 - ERIN britt. Past Medical History: Diagnosis [place] [place] BPH (benign prostatic hyperplasia) Bro[place]cerebral [place] [place]/17/2025 [place] Epistaxis Hypertension Hyponatremia secondary to SIADH Hypothyroid Lumbar spondylosis TIA (transient ischemic attack) Past Surgical History: Procedure Laterality Date NECK SURGERY plate in neck per Modified [place] Level of Disability: Severe disability 0= No symptom at all 1= No significant disability despite symptoms: able to carry out all usual duties and activities 2= Slight disability: unable to carry out all previous activities, but able to look after own affairs without assistance 3= Moderate disability: requiring some help, but able to walk without assistance 4= Moderately severe disability: unable to walk without assistance and unable to attend to own bodily needs without assistance 5- Severe disability: bedridden, incontinent and requiring constant nursing care and attention. 6= Therapy Plan Need for skilled Physical Therapy to address deficits in functional mobility due to a status decline resulting from admit for stroke work up. PT Treatment/Interventions: Functional transfer training, LE strengthening/ROM, Patient/family training, Equipment eval/education, Balance, Bed mobility, Functional activities, Neuromuscular reeducation PT Frequency: 4-5days/week PT Duration: 07/13/25 Assessment Patient Assessment Therapy Problem List: Decreased balance, Decreased cognition, Decreased mobility, Decreased safe judgement during ADL, Decreased UE strength, Decreased LE strength Patient Response to Treatment: Tolerated evaluation without adverse reaction, Slow progress, decreased activity tolerance, Slow progress, cognitive deficits Mood/Affect: Flat Rehab Prognosis: Good, With continued PT status post acute discharge Visit RN Communication: Yes Medical Record Reviewed: Yes PT Type of Visit: Evaluation Precautions Activity: act as tolerated Equipment: repositioning sling, IV, bed alarm Telemetry/Elementary Instructional Coach: Yes Oxygen Used: room air Other: high fall risk, L sided weakness, aphasia Subjective Physical Therapy Comments: Pt lethargic this date, able to awaken but drifts off and difficulty following most commands - ERIN britt Pain Assessment Pain Assessment: (Pt indicated back pain with supine to sit and with L hip ROM but unable to localize or rate due to cognition) Home Living Type of Home: House Home Layout: One level, Able to live on main level with bedroom/bathroom, Stairs to enter with rails Stairs to Enter: 2 from cold working supervisor Rails: Right Stairs in Home: 0 Bathroom Shower/Tub: Walk-in shower Bathroom Toilet: Standard Home Equipment: Rolling walker Other : Home info from EMR review of recent therapy eval at [facility] - pt not able to answer questions this date and no family present. Pt not using AD lighter captain Prior Function Lives With: Spouse (Leelee) Level of Mobility: Independent with ADLs and functional transfers or gait Homemaking Assistance: Independent Vocational: Retired Other: Per EMR review, pt indep at baseline for mobility and ADLs, driving. Pt had recent fall 06/02/25 while adjusting lawn chair resulting in nasal bone fx and persistent epistaxis. Hearing / Speech / Vision Hearing: Hard of hearing/hearing concerns Speech: Expressive aphasia, Receptive aphasia (minimal verbalizations this date despite prompting, difficulty following commands) Other: R gaze preference noted but unable to fully assess Cognition Overall Cognitive Status: Exceptions to Within Functional Limits Arousal/Alertness: Lethargic Attention Span: Difficulty attending to directions Memory: Unable to assess Orientation Level: Oriented to person (Pt able to state his name, not able to answer any other questions this date) Following Commands: (not following most commands this date despite max verbal and physical prompting.) Sensation Overall Sensation Status: Unable to Assess (due to cognition) Bed Mobility Supine to Sit: Max assist (2 assist) Sit to Supine: Max assist (2 assist) Other: minimal participation from pt this date. Pt leans posteriorly and to the L in sitting. Transfers Other: not appropriate to attempt standing this date due to poor sitting balance and not following commands. Recommend maxi richard lift for safe transfers with staff. Gait Other: not appropriate at this time Balance Balance Evaluation: Exceptions to Functional Limits Sitting Balance: Static: Poor Sitting Balance: Dynamic: Poor Other: Pt sat at EOB x 7 mins with mod to max A support for balance. Pt leans to the L and posteriorly. Not appropriate to attempt standing RLE Assessment: (Unable to follow commands for MMT, resistant at times to ROM, some activity movement noted RLE>LLE) LLE Assessment: (Minimal active movement noted, PROM WFL with little resistance.) Activity Tolerance Endurance: Tolerates <30 minutes activity WITHOUT vital sign changes Plan Physical Therapy Care Plan Physical Therapy Care Plan (Active) Template: PT - Physical Therapy Problem: Activity Tolerance Dates: Start: 06/19/25 Disciplines: PT Goal: Tolerate 30 minutes of activity WITH rest breaks Dates: Start: 06/19/25 Expected End: 07/14/25 Description: Goal Description: for supine, seated and supported standing activities for improved mobility Disciplines: PT Problem: Bed Mobility Dates: Start: 06/19/25 Disciplines: PT Goal: Patient will perform bed mobility with Minimum Assist Dates: Start: 06/19/25 Expected End: 07/14/25 Description: Goal Description: Disciplines: PT Problem: Sitting Balance Dates: Start: 06/19/25 Disciplines: PT Goal: Improve balance to good Dates: Start: 06/19/25 Expected End: 07/14/25 Description: Static Dynamic with UE support as needed for safe ADLs and transfers Disciplines: PT Problem: Standing Balance Dates: Start: 06/19/25 Disciplines: PT Goal: Improve balance to fair Dates: Start: 06/19/25 Expected End: 07/14/25 Description: Static Dynamic with UE support/SPH equipment for safe mobility Disciplines: PT Problem: Transfers Dates: Start: 06/19/25 Disciplines: PT Goal: Patient will perform transfers with Moderate Assist Dates: Start: 06/19/25 Expected End: 07/14/25 Description: Goal Description: sit to stand with UE support Disciplines: PT Physical Therapy Care Plan (Resolved) There are no resolved problems. Principal Problem: CVA (cerebral vascular accident) ([facility]) Occupational Therapy Evaluation Discharge Recommendations for Safe Patient Transition Discharge Recommendations: Post acute - moderate Post Acute Moderate Rehab Needs: Recommend moderate intensity rehab, Tolerate 1-2 hrs of therapy 3-5 days/wk, Subacute or chronic functional impairment Current Impairments Informing Therapy Recommendation: Ambulation status/safety, Cognition, Fall risk, ADL status, Communication needs, Endurance level Modified [place] Level of Disability: Severe disability 0= No symptom at all 1= No significant disability despite symptoms: able to carry out all usual duties and activities 2= Slight disability: unable to carry out all previous activities, but able to look after own affairs without assistance 3= Moderate disability: requiring some help, but able to walk without assistance 4= Moderately severe disability: unable to walk without assistance and unable to attend to own bodily needs without assistance 5- Severe disability: bedridden, incontinent and requiring constant nursing care and attention. 6= 6 Clicks: Daily Activity Putting on and taking off regular lower body clothing?: A lot Bathing (including washing, rinsing, drying)?: A lot Toileting, which includes using toilet, bedpan or urinal?: A lot Putting on and taking off regular upper body clothing?: A lot Taking care of personal grooming such as brushing teeth?: A lot Eating meals?: A lot Scoring Daily Activity Raw Score: 12 [facility] G Code Modifier: CL Modifed chip index; 0/20 Occupational Profile Patient is a 85 year old male admitted with left side weakness and aphasia. CT brain: no acute. CTA: right P1/P2 occlusion. TNK given. CT perfusion: possible deficit left anterior temporal horn, likely artifact. MRI brain: no acute infarct, mild small vessel ischemic changes. Echo: results pending. Carotid duplex: pending. See below for past medical and past surgical history. Past Medical History: Diagnosis Date Atrial fibrillation [place] BPH (benign prostatic hyperplasia) Broken nose CVA (cerebral vascular accident) [place] 06/17/2025 Diabetes [place] Epistaxis Hypertension Hyponatremia secondary to SIADH Hypothyroid Lumbar spondylosis TIA (transient ischemic attack) Past Surgical History: Procedure Laterality Date NECK SURGERY plate in neck per Therapy Plan Need for skilled Occupational Therapy to address deficits in ADL independence and functional mobility due to a status decline resulting from rule out stroke. OT Treatment/Interventions: ADL retraining, Cognitive reorientation, Balance, Bed mobility, UE strengthening/ROM, Functional transfer training, Patient/family training, Home management, Neuromuscular reeducation, Functional activities, Equipment eval/education OT Frequency: 4-5days/week OT Duration: jul 19, 2025 Assessment Patient Assessment Therapy Problem List: Decreased ADL status, Decreased balance, Decreased cognition, Decreased endurance, Decreased high-level ADLs, Decreased mobility, Decreased safe judgement during ADL, Decreased self-care trans, Decreased UE ROM, Decreased UE strength, Decreased LE strength Patient Response to Treatment: Slow progress, cognitive deficits, Slow progress, decreased activity tolerance Mood/Affect: Flat Rehab Prognosis: Good, With continued OT status post acute discharge Visit RN Communication: Yes Medical Record Reviewed: Yes OT Type of Visit: Evaluation Precautions Activity: advance activity as tolerated per early mobility guidelines. Equipment: telemetry, IV Telemetry/Elementary Instructional Coach: Yes Oxygen Used: room air Other: fall risk, cognition. Pain Assessment Pain Assessment: (patient indicated back pain with passive movement however, was not able to rate due to cognition.) Home Living Type of Home: House Home Layout: One level, Performs ADLs on one level, Able to live on main level with bedroom/bathroom Stairs to Enter: 2 in with right rail Hand Rails: Right Bathroom Shower/Tub: Walk-in shower Home Equipment: Rolling walker Other : patient is not able to provide due to cognition. Family not in room at time of evaluation Prior Function Lives With: Spouse (lives wtih , Leelee.) Other: patient was not able to provide prior function info due to cognition. Was last independent at the end of May. Patient was able to drive at that time per EMR ADL / IADL Where Assessed: Supine, bed, Edge of bed (patient returned to supine at end of session.) Eating Assistance: Total assist Grooming Assistance: Max assist Bathing/Showering Assistance: Max assist Toilet/Commode Assistance: Max assist UE Dressing Assistance: Max assist LE Dressing Assistance: Max assist Footwear Assistance: Max assist Other: attempted facial care. Patient was not able to initiate. Hand over hand assist attempted. Patient was able to bring washcloth to face on one occasion. Home Management - IADL Other: attempted facial care. Patient was not able to initiate. Hand over hand assist attempted. Patient was able to bring washcloth to face on one occasion. Hearing / Speech / Vision Hearing: Hard of hearing/hearing concerns Speech: Other (Comment) (able to say a few words with max tactile prompting.) Cognition Overall Cognitive Status: Exceptions to Within Functional Limits Other: patient was not able to follow simple commands for the most part. patient was able to speak a few words with max tactile prompting. Patient is dependent for cognition at this time. Sensation Overall Sensation Status: Unable to Assess (due to cognition) Bed Mobility Supine to Sit: Max assist (max assist of two.) Sit to Supine: Max assist (max assist of two.) Transfers Other: patient is dependent for static sitting balance. Gait Gait Distance: patient was dependent for static sitting balance. Tends to push back and to the left. Balance Sitting Balance: Static: Poor Sitting Balance: Dynamic: Poor Other: able to static sit at edge of bed for 7 minutes while engage in ADL task of facial care. RUE Assessment: (patient is not able to follow commands for manual muscle test. patient was able to move right arm non purposeful to wipe face. generalized weakness.) LUE Assessment: (patient was not able to follow commands for manual musce test. Generalized weakness.) Activity Tolerance Endurance: Tolerates <30 minutes activity WITHOUT vital sign changes Other: room air Plan Occupational Therapy Care Plan Occupational Therapy Care Plan (Active) Template: OT - Occupational Therapy Problem: Activity Tolerance Dates: Start: 06/19/25 Disciplines: OT Goal: Tolerate 30 minutes of activity WITH rest breaks Dates: Start: 06/19/25 Expected End: 07/19/25 Description: Goal Description: Disciplines: OT Problem: Bed Mobility Dates: Start: 06/19/25 Disciplines: OT Goal: Patient will perform bed mobility with Minimum Assist Dates: Start: 06/19/25 Expected End: 07/19/25 Description: Goal Description: Disciplines: OT Problem: Cognition Dates: Start: 06/19/25 Disciplines: OT Goal: Improve cognition Dates: Start: 06/19/25 Expected End: 07/19/25 Description: Improve cognition to follow one step commands 50% of the time. Disciplines: OT Problem: Other (Customize) Dates: Start: 06/19/25 Disciplines: OT Goal: Improve Dates: Start: 06/19/25 Expected End: 07/19/25 Description: Engage in simple ADL tasks with set up independently. Disciplines: OT Problem: ROM Dates: Start: 06/19/25 Disciplines: OT Goal: Improve ROM Dates: Start: 06/19/25 Expected End: 07/19/25 Description: Improve bilateral upper extremity active range of motion to functional during ADL tasks. Disciplines: OT Problem: Sitting Balance Dates: Start: 06/19/25 Disciplines: OT Goal: Improve balance to good Dates: Start: 06/19/25 Expected End: 07/19/25 Description: Good static sitting balance. Disciplines: OT Occupational Therapy Care Plan (Resolved) There are no resolved problems. Principal Problem: CVA (cerebral vascular accident) ([facility]) Ongoing Assessment for Discharge Needs Reviewed discharge milestones and patient needs related to discharge plan. Current estimated discharge date of Jun 20, 2025 has been reviewed by treatment team. Ongoing Assessment for Discharge Needs Flowsheet Row Most Recent Value Services Requested Patient expects to be discharged to: home Does the patient wish to have family/friend/caregiver involved in their discharge planning? Yes Does the patient plan to return home to a community setting? Yes Has the family/friend/caregiver been assessed to determine their readiness, skills, capacities, and resources to provide post hospital care? Yes, Caregiver Assessment Completed Discharge Disposition Home with home health services Facility/Service Name [facility] Case discussed in daily transition rounds and chart reviewed by CN. Barriers to discharge include PT/OT, PMR to see, Discharge Plan remains: Home with C vs IPR. [facility] will accept. [facility]- will need PT/OT notes as soon as they are in. CN will continue to follow and is available should any further needs arise. - Dawson Yost RN 06/19/25 8:40 AM Problem: Pain Goal: Patient goal is pain score less than 4, able to rest, and participant in treatment plan as appropriate Description: INTERVENTIONS: 1. Encourage patient or legal personal banking representative to report early pain and ask for pain medicine when needed 2. Assess pain using appropriate pain scale and include the scale used when documenting 3. Administer analgesics based on type and severity of pain and evaluate response within appropriate time frame 4. Implement non-pharmacological measures as appropriate and evaluate response 5. Consider cultural and social influences on pain and pain management 6. Notify LIP if interventions ineffective or patient reports new pain 7. Monitor vital signs including pulse ox, end-tidal CO2 based on pain intervention 8. Reassess pain per policy 9. Teach patient or legal personal banking representative interventions for comforting Outcome: Progressing Note: Evaluation of progress towards goal: Pt able to rate pain no a scale of 1-10. PRN pain medications available, see MAR. Problem: Safety Goal: Patient will be injury free during hospitalization Description: INTERVENTIONS: 1. Assess patient's risk for falls and implement fall prevention plan of care per policy 2. Provide and maintain a safe environment 3. Proper use of double Identifiers 4. Medication administration using the 5 rights 5. Hand hygiene 6. Specimens are labeled at the bedside 7. Instruct patient/ patient personal banking representative about use of safety devices 8. Include patient/ patient personal banking representative in decisions related to safety Outcome: Progressing Note: Evaluation of progress towards goal: Pt should remain safe during this shift. Items and call light within reach, bed in lowest position and locked, side rails up 2/4. Problem: Infection Goal: Absence of infection during hospitalization Description: INTERVENTIONS 1. Assess and monitor for signs and symptoms of infection. 2. Monitor lab/diagnostic results. 3. Monitor all insertion sites i.e., indwelling lines, tubes and drains. 4. Monitor endotracheal (as able) and nasal secretions for changes in amount and color. 5. Administer medications as ordered. 6. Instruct and encourage patient and family to use good hand hygiene technique. 7. Identify and instruct patient/patient personal banking representative in use of appropriate isolation precautions for identified infection/symptoms. 8. Provide and discuss with patient/patient personal banking representative on educational MDRO sheet. 9. Encourage and monitor nutritional status daily and consult water commissioner if indicated. 10. Implement neutropenic guidelines as needed. Outcome: Progressing Note: Evaluation of progress towards goal: Pt should remain free from infection during this shift. Standard precautions used during care. Problem: Knowledge Deficit Goal: Patient/patient personal banking representative demonstrates understanding of disease process, treatment plan, medications, and discharge instructions Description: INTERVENTIONS 1. Complete learning assessment and assess knowledge base 2. Provide teaching at level of understanding 3. Provide teaching via preferred learning method(s) Outcome: Progressing Note: Evaluation of progress towards goal: Knowledge assessed, questions answered to the patients level of understanding. Will continue to assess their current knowledge and educate as needed. Problem: Potential for Compromised Skin Integrity Goal: Skin integrity is maintained or improved Description: Patient's goal is: INTERVENTIONS 1. Perform initial skin assessment on admission and as needed 2. Turn patient every 2 hours and PRN 3. Relieve pressure to bony prominences 4. Avoid shearing 5. Keep skin clean and dry 6. Alternate a full bath with partial baths for elderly 7. Apply lotion/moisturizer on skin 8. Monitor patient's hygiene practices 9. Float heels 10. Collaborate with interdisciplinary team and initiate plans and interventions as needed Outcome: Progressing Note: Evaluation of progress towards goal: Pt skin integrity is maintained. Measures to reduce moisture and decrease risk of skin breakdown have been implemented. Problem: Neurological Deficit Goal: Neurological status is stable or improving Description: Patient's goal is: INTERVENTIONS 1. Complete Neurological assessment as indicated/ordered 2. Initiate measures to prevent increased intracranial pressure 3. Monitor and assess patient's level of consciousness, motor function, sensory function, and level of assistance needed for ADLs 4. Monitor and report changes from baseline 5. Maintain blood pressure and fluid volume within ordered parameters to optimize cerebral perfusion and minimize risk of hemorrhage 6. Monitor labs and diagnostic tests 7. Administer anti-seizure medications as ordered 8. Maintain airway, patient safety and administer oxygen as ordered 9. Monitor patient for seizure activity, document and report duration and description of seizure to LIP 10. If seizure occurs, turn patient to side and suction secretions as needed 11. Reorient patient post seizure 12. Seizure pads on all 4 side rails 13. Instruct patient/family to notify RN of any seizure activity 14. Instruct patient/family to call for assistance with activity based on assessment 15. Utilize bleeding precautions if thrombolytic given Outcome: Progressing Note: Evaluation of progress towards goal: Neurologic status remain stable per Q4 neuro checks. Problem: Activity Intolerance/Impaired Mobility Goal: Mobility/activity is maintained at optimum level for patient Description: Patient's goal is: INTERVENTIONS 1. Assess and monitor patient barriers to mobility and need for assistive/adaptive devices 2. Assess patient's emotional response to limitations 3. Collaborate with interdisciplinary teams and initiate plans and interventions as ordered 4. Encourage independent activity per tolerance 5. Maintain proper body alignment 6. Perform active/passive ROM as tolerated/ordered 7. Coordinate activities to conserve energy 8. Reposition patient 9. Ensure adequate rest/sleep time Outcome: Progressing Note: Evaluation of progress towards goal: Mobility maintained at optimal level for patient. Problem: Moderate - High Risk Fall Score Description: Val[place] Fall Score of =/> 25 or indicated by [facility] Assessment Goal: Patient should be free from fall Description: Interventions: 1. [place] to environment 2. Hourly rounds addressing the 4 P's (Pain, Positioning, Possessions, Potty) 3. Clear area of hazards (spills, clutter, electrical cords, unnecessary equipment) 4. Place equipment (bed & TV controls, call light, phone, urinal) within reach 5. Encourage patient to wear glasses and hearing aides as appropriate 6. Maintain bed in lowest position 7. Lock wheels on bed/wheelchair 8. Provide adequate lighting, including night light 9. Assess need for additional bedding, food/fluids, pain med's prior to sleep/routinely 10. Provide gripper slippers or personal non-skid footwear 11. Teach patient and patient personal banking representative to maintain environment for safety and engage in all aspects of fall prevention program 12. Remind patient to call for help before getting out of bed 13. Initiate bed/chair/exit alarms supportive devices as appropriate, (chair wedge, no-skid floor mat, raised edge mattress, hip protectors) 14. Locate patient bed assignment for optimal visualization 15. Evaluate and identify Safe Patient Handling Equipment needs 16. Provide supervision when out of bed or chair 17. Utilize gait belt as needed to assist with ambulation 18. Place adaptive equipment (cane, walker) within reach 19. Request patient personal banking representative bring adaptive equipment/mobility aids from home or obtain and provide as needed 20. Consult pharmacy regarding effects of med's affecting mobility, cognition, and alternatives 21. Obtain physician order for PT if risk factors associated with mobility are present 22. Obtain physician order for OT as appropriate 23. Utilize diversional activities 24. Educate patient and patient personal banking representative how to maintain a safe environment during visitation times (notify nurse prior to leaving bedside) 25. Consider appropriateness of medical or non-biomedical electronics technician 26. Set up voiding schedule as appropriate (every 2 hours) Outcome: Progressing Note: Evaluation of progress towards goal: Pt should remain free from fall during this shift. Bed in lowest position and locked, side rails up 2/4, personal items and call light within reach, non skid socks applied, environment clear of hazards. DISCHARGE PLANNING NOTE Referral sent to [facility] in [place] (P# ; F# ) DISCHARGE PLANNING NOTE Referral sent to. [facility] in [place], [place] (P# ; F# ) Images from the original note were not included. Initial Assessment Initial Assessment Flowsheet Row Most Recent Value Patient Information Initial Pre-Hospitalization Assessment Completed? Completed Primary Caregiver Spouse Support System Spouse/Significant Other, Family Members Discharge Planning Living Arrangements Private Residence, Spouse/significant other Assistance Needed none Type of Residence Private residence Private Residence 1 story Can patient reside on one level? Yes Residence Accessibility Steps into home Number of Steps 2 Home Care Services No Stressors Income Information Income Information Retired/Pension/Social Security IP Hunger/Food Insecurity Screening Within the past 12 months we worried whether our food would run out before we got money to buy more. Never True Within the past 12 months the food we bought just didn't last and we didn't have money to get more. Never True Hunger Screening Complete? Yes Pt. Eligible for Food / Voucher No Caregiver/Family Member Caregiver/Family Member spouse- Leelee Caregiver/Family Member Involved with Current Plan of Care Yes Caregiver/Family Member in Agreement with Current Plan of Care Yes Caregiver/Support System Limitations Patient/Caregiver Goals Patient/Caregiver Goals Home with Home Care, Inpatient Rehab Community Provider Referral Services Requested Patient expects to be discharged to: home Does the patient wish to have family/friend/caregiver involved in their discharge planning? Yes Does the patient plan to return home to a community setting? Yes Has the family/friend/caregiver been assessed to determine their readiness, skills, capacities, and resources to provide post hospital care? Yes, Caregiver Assessment Completed Discharge Disposition Acute rehab, Home with home health services [facility] [employer] met with patient, introduced self, and explained role. Patient educated on safe discharge plan. Pt admitted 06/17/2025 with CVA (cerebral vascular [place]) [place] [I63.9] per chart review. Consults: Neurology Discharge Barriers per Daily Transition Rounds and chart review: PT/OT, s/p TNK-bedrest, MRi, echo. Past Medical History: Diagnosis Date Atrial fibrillation [place] BPH (benign prostatic hyperplasia) Broken nose CVA (cerebral vascular accident) [place] 06/17/2025 Diabetes [place] Epistaxis Hypertension Hyponatremia secondary to SIADH Hypothyroid Lumbar spondylosis TIA (transient ischemic attack) Prior to admission patient was living with spouse/significant other and self care. Medical equipment patient used prior to admission includes: None. Patient denies need for transportation/ food/ prescription medication assistance resources. Patient's caregiver has been assessed to determine readiness, skills, capabilities, and resources to provide post hospital care. Caregiver's pre-stroke responsibilities include driving patient to appointments, shopping and assisting with housekeeping room attendant. Caregiver's personal limitations include Patient's feels she can not drive long distances. Patient would need transportation home. Other than named caregiver, other support system includes . Caregiver is willing both physically and emotionally to provide care patient will require. Caregiver is prepared to provide skills needed to assist with patient's personal care. Discharge home and needed durable medical equipment has been assessed and obtained. Financial, food, and transportation needs have been assessed and resources provided if needed. Patient's need for ongoing services have been assessed and resources provided. Discharge plan home vs acute rehab. PCP: TANYA Lozano Pharmacy: [facility] PCP and pharmacy confirmed with patient. CN offered to assist with follow up appointment arrangements; . TANYA Lozano added to Follow Up Providers for Summary of Care communication. Per patient self-report: Drug use: denies Smoking: denies ETOH Use: rarely Current discharge plan is: Home with [facility] vs acute rehab pending PT/OT eval. CN spoke with patient's she has used [facility]ii in past. Tasked to send referrals to [facility] and to [facility]. Services Requested: Services Requested Patient expects to be discharged to:: home Does the patient wish to have family/friend/caregiver involved in their discharge planning?: Yes Does the patient plan to return home to a community setting?: Yes Has the family/friend/caregiver been assessed to determine their readiness, skills, capacities, and resources to provide post hospital care?: Yes, Caregiver Assessment Completed Discharge Disposition: Acute rehab, Home with home health services Goals: Goals <enter goal here> (pt-stated) Evaluation of progress towards goal: Home with [facility] Autogenerated Goal Will continue to follow as plan of care develops. CN discussed benefits and importance of medication compliance and follow ups. Please feel free to reach out for any discharge planning questions. - Dawson Yost RN 06/18/25 12:24 PM Speech Therapy Evaluation Bedside Swallow/Feeding Evaluation Speech & Language Cognitive Evaluation Discharge Recommendations for Safe Patient Transition [employer] Post Discharge Therapy Recommendations: Continue ST services Recommendations Diet Level: Regular Liquid Level: Level 0 Thin Compensatory Strategies: Small sips/bites, One sip/bite at a time, Follow aspiration precautions Supervision/Positioning: Patient at 90 degress for all PO intake (including medication), Patient to remain upright 15 minutes after meals Impressions Oral Dysphagia: Mild Pharyngeal Dysphagia Suspected: Yes Plan Frequency: 2-3days/week Duration: until discharge Need for skilled Speech Language Pathology Services to address deficits in feeding/swallowing due to a status decline resulting from CVA. Prognosis Services: Skilled [employer] services to address above deficits Prognosis/Potential: Good Considerations: Age, Cognition Discharge Recommendations for Safe Patient Transition [employer] Post Discharge Therapy Recommendations: Continue ST services Impressions Receptive Language: Moderate-severe Expressive Language: Moderate-severe Cognitive Linguistic: Severe Plan Frequency: 2-3days/week Duration: until discharge Rehab Therapy Type: Individual treatment Need for skilled Speech Language Pathology Services to address deficits in speech/language/cognition due to a status decline resulting from CVA. Diagnostic therapy and education were provided. Pt benefited from cueing and repetition. Pt informed on results and recommendations of evaluation. Unable to complete SLUMS. PHQ2 - Over the past 2 weeks, how often have you been bothered by the following problems? Little Interest or Pleasure in Doing Things: Not at all Feeling Down, Depressed or Hopeless: Not at all Score: 0 Score ranges from 0 to 6; patients with scores of 3 or more should be further evaluated. Prognosis Services: Skilled [employer] services to address the above deficits Prognosis/Potential: Good Considerations: Age, Cognition Assessment Bedside Swallow/Feeding Eval Speech & Language Cognitive Eval Baseline Assessment Additional Testing Results: Computed Tomography, Magnetic resonance imaging Respiratory Status: Room Air Behavior/Cognition: Alert, Cooperative, Requires cueing, Confused Dentition: Adequate Patient Positioning: Upright in bed Volitional Cough: Strong Volitional Swallow: Within Functional Limits Laryngectomy: No Ability to Control Secretions: Yes Allergies Marked As Reviewed: Complete Oral/Motor Overall Oral/Motor Status: Exceptions to Within Functional Limits Labial ROM: Reduced Labial Strength: Reduced Labial Coordination: Reduced Lingual ROM: Reduced Lingual Strength: Reduced Lingual Coordination: Reduced Vocal Quality: Exceptions to WFL Weak: Mild Vocal Intensity: Within Functional Limits Intelligibility: Intelligibility reduced Intelligibility Rating: Mild Breath Support: Adequate for speech Dentition: Adequate Xerostomia: No Hearing: Hard of hearing/hearing concerns Consistencies Assessed: Yes Level 0 Thin Presentation: Cup, Straw Oral: Suspect premature spillage Pharyngeal: Decreased laryngeal elevation Level 4 Pureed Presentation: Spoon Oral: Suspect premature spillage Pharyngeal: Decreased laryngeal elevation Regular Presentation: Self feed Oral: Decreased mastication Pharyngeal: Delayed swallow initiation Pain Assessment Pain Assessment: No/denies pain Oral/Motor Overall Oral/Motor Status: Exceptions to Within Functional Limits Labial ROM: Reduced Labial Strength: Reduced Labial Coordination: Reduced Lingual ROM: Reduced Lingual Strength: Reduced Lingual Coordination: Reduced Vocal Quality: Exceptions to WFL Weak: Mild Vocal Intensity: Within Functional Limits Intelligibility: Intelligibility reduced Intelligibility Rating: Mild Breath Support: Adequate for speech Dentition: Adequate Xerostomia: No Hearing: Hard of hearing/hearing concerns Auditory Comprehension Overall Auditory Comphension Status: Exceptions to Within Functional Limits Yes/No Questions: Exceptions to WFL Basic Questions: Moderate Complex Questions: Severe Commands: Exceptions to WFL One Step Basic Commands: Moderate Two Step Basic Commands: Severe Multistep Basic Commands: Severe Paragraph: Severe Expression Overall Expression Status: Exceptions to Within Functional Limits Primary Mode of Expression: Verbal Verbal Expression Overall Verbal Expression Status: Exceptions to Within Functional Limits Aphasia: Mixed Initiation: Impairment Automatics: Impairment Repetition: Impairment Naming: Impairment Confrontation: Moderate Convergent: Severe Divergent: Severe Speech Production Overall Speech Production: Within Functional Limits Pragmatics/Social Functioning Overall Pragmatic Status: Exceptions to Within Functional Limits Topic Initiation: Moderate Topic Maintenance: Moderate Fluency Converstation Level: Impaired High Level Language Overall High Level Language Status: Exceptions to Within Functional Limits Attention: Exceptions to WFL Sustained Attention: Severe Memory: Exceptions to WFL Short-term Memory: Moderate Working Memory: Severe Problem Solving: Exceptions to WFL Managing Finances: Severe Managing Medications: Severe Abstract Reasoning: Severe Inductive Reasoning: Severe Deductive Reasoning: Severe Task Initiation: Delayed initiation Flexibility of Thought: Reduced flexibility Planning: Reduced planning skills Processing Speed: Delayed Cognition Overall Cognitive Status: Exceptions to Within Functional Limits Arousal/Alertness: Delayed responses to stimuli Attention Span: Attends with cues to redirect Memory: Decreased short term memory Orientation Level: Oriented to person, Disoriented to place, Disoriented to time, Disoriented to situation Following Commands: Follows one step commands with repetition, Follows one step commands with increased time Safety Judgment: Decreased awareness of need for safety, Decreased awareness of need for assistance Awareness of Errors: Decreased awareness of errors Insight of Deficits: Decreased awareness of deficits Problem Solving: Assistance required to identify errors made, Assistance required to generate solutions Pain Assessment Pain Assessment: No/denies pain Plan Diagnosis Code Swallowing: R13.12 Dysphagia, oropharyngeal phase, I69.891 Dysphagia following other cerebrovascular disease+ Cerebrovascular Disease: I69.828 Other speech and language deficits following other CV disease Speech Therapy Care Plan Speech Therapy Care Plan (Active) Template: ST - Dysphagia Problem: Swallowing Dates: Start: 06/18/25 Disciplines: [employer] Goal: STG: Patient will complete safety strategies independently during PO intake 90% of the time Dates: Start: 06/18/25 Expected End: 07/22/25 Disciplines: [employer]NAMEL[employer] Template: ST - Rehab Speech Problem: Auditory Comprehension Dates: Start: 06/18/25 Disciplines: [employer] Goal: LTG: Patient will comprehend communication related to basic medical and social needs and utilize compensatory strategies to maintain safety in a functional living environment Dates: Start: 06/18/25 Expected End: 07/22/25 Disciplines: [employer] Goal: STG: Patient will answer simple yes/no questions with 90% accuracy with minimal cueing. Dates: Start: 06/18/25 Expected End: 07/22/25 Disciplines: [employer]NAM[employer] Goal: STG: Patient will answer complex yes/no questions with 90% accuracy with minimal cueing Dates: Start: 06/18/25 Expected End: 07/22/25 Disciplines: [employer] Problem: Verbal Expression Dates: Start: 06/18/25 Disciplines: [employer] Goal: LTG: Patient will utilize compensatory strategies to communicate wants and needs effectively to different conversational partners, maintain safety and participate socially in a functional living environment Dates: Start: 06/18/25 Expected End: 07/22/25 Disciplines: [employer]NAM[employer] Goal: STG: Patient will complete simple to complex divergent and convergent naming tasks with 90% accuracy with minimal cueing to improve thought organization Dates: Start: 06/18/25 Expected End: 07/22/25 Disciplines: [employer]NAMELER Goal: STG: Patient will use word retrieval strategies during structured interactions to improve functional communication during activities of daily living with 90% accuracy with minimal cueing Dates: Start: 06/18/25 Expected End: 07/22/25 Disciplines: [employer]NAMEL[employer] Speech Therapy Care Plan (Resolved) There are no resolved problems. Principal Problem: CVA (cerebral vascular accident) (CMS-HCC) Occupational Therapy OT Type of Visit: Medical deferral Reason For Medical Deferral: Activity limitations Activity Limitations: Strict bedrest (Per TNK protocol. Will continue to follow.) Physical Therapy PT Type of Visit: Medical deferral (strict bedrest s/p TNK per protocol) Reason For Medical Deferral: Activity limitations Activity Limitations: Strict bedrest Will check back as appropriate. Problem: Pain Goal: Patient goal is pain score less than 4, able to rest, and participant in treatment plan as appropriate Description: INTERVENTIONS: 1. Encourage patient or legal personal banking representative to report early pain and ask for pain medicine when needed 2. Assess pain using appropriate pain scale and include the scale used when documenting 3. Administer analgesics based on type and severity of pain and evaluate response within appropriate time frame 4. Implement non-pharmacological measures as appropriate and evaluate response 5. Consider cultural and social influences on pain and pain management 6. Notify LIP if interventions ineffective or patient reports new pain 7. Monitor vital signs including pulse ox, end-tidal CO2 based on pain intervention 8. Reassess pain per policy 9. Teach patient or legal personal banking representative interventions for comforting Outcome: Progressing Note: Evaluation of progress towards goal: Patient currently denies pain. Patient encouraged to communicate with staff if pain occurs. Will continue to monitor for changes. Problem: Safety Goal: Patient will be injury free during hospitalization Description: INTERVENTIONS: 1. Assess patient's risk for falls and implement fall prevention plan of care per policy 2. Provide and maintain a safe environment 3. Proper use of double Identifiers 4. Medication administration using the 5 rights 5. Hand hygiene 6. Specimens are labeled at the bedside 7. Instruct patient/ patient personal banking representative about use of safety devices 8. Include patient/ patient personal banking representative in decisions related to safety Outcome: Progressing Note: Evaluation of progress towards goal: Safe environment maintained. Medications administered using 5 rights. Fall prevention plan implemented as needed. Problem: Infection Goal: Absence of infection during hospitalization Description: INTERVENTIONS 1. Assess and monitor for signs and symptoms of infection. 2. Monitor lab/diagnostic results. 3. Monitor all insertion sites i.e., indwelling lines, tubes and drains. 4. Monitor endotracheal (as able) and nasal secretions for changes in amount and color. 5. Administer medications as ordered. 6. Instruct and encourage patient and family to use good hand hygiene technique. 7. Identify and instruct patient/patient personal banking representative in use of appropriate isolation precautions for identified infection/symptoms. 8. Provide and discuss with patient/patient personal banking representative on educational MDRO sheet. 9. Encourage and monitor nutritional status daily and consult water commissioner if indicated. 10. Implement neutropenic guidelines as needed. Outcome: Progressing Note: Evaluation of progress towards goal: Labs and vitals monitored as ordered. Medications administered as ordered. Patient remains free from infection at this time. Problem: Moderate - High Risk Fall Score Description: Valenzuela Fall Score of =/> 25 or indicated by [facility] Assessment Goal: Patient should be free from fall Description: Interventions: 1. [place] to environment 2. Hourly rounds addressing the 4 P's (Pain, Positioning, Possessions, Potty) 3. Clear area of hazards (spills, clutter, electrical cords, unnecessary equipment) 4. Place equipment (bed & TV controls, call light, phone, urinal) within reach 5. Encourage patient to wear glasses and hearing aides as appropriate 6. Maintain bed in lowest position 7. Lock wheels on bed/wheelchair 8. Provide adequate lighting, including night light 9. Assess need for additional bedding, food/fluids, pain med's prior to sleep/routinely 10. Provide gripper slippers or personal non-skid footwear 11. Teach patient and patient personal banking representative to maintain environment for safety and engage in all aspects of fall prevention program 12. Remind patient to call for help before getting out of bed 13. Initiate bed/chair/exit alarms supportive devices as appropriate, (chair wedge, no-skid floor mat, raised edge mattress, hip protectors) 14. Locate patient bed assignment for optimal visualization 15. Evaluate and identify Safe Patient Handling Equipment needs 16. Provide supervision when out of bed or chair 17. Utilize gait belt as needed to assist with ambulation 18. Place adaptive equipment (cane, walker) within reach 19. Request patient personal banking representative bring adaptive equipment/mobility aids from home or obtain and provide as needed 20. Consult pharmacy regarding effects of med's affecting mobility, cognition, and alternatives 21. Obtain physician order for PT if risk factors associated with mobility are present 22. Obtain physician order for OT as appropriate 23. Utilize diversional activities 24. Educate patient and patient personal banking representative how to maintain a safe environment during visitation times (notify nurse prior to leaving bedside) 25. Consider appropriateness of medical or non-biomedical electronics technician 26. Set up voiding schedule as appropriate (every 2 hours) Outcome: Progressing Note: Evaluation of progress towards goal: Fall risk assessment preformed and safety measures in place. Education given to family/patient. Will continue to monitor. Problem: Pain Goal: Patient goal is pain score less than 4, able to rest, and participant in treatment plan as appropriate Description: INTERVENTIONS: 1. Encourage patient or legal personal banking representative to report early pain and ask for pain medicine when needed 2. Assess pain using appropriate pain scale and include the scale used when documenting 3. Administer analgesics based on type and severity of pain and evaluate response within appropriate time frame 4. Implement non-pharmacological measures as appropriate and evaluate response 5. Consider cultural and social influences on pain and pain management 6. Notify LIP if interventions ineffective or patient reports new pain 7. Monitor vital signs including pulse ox, end-tidal CO2 based on pain intervention 8. Reassess pain per policy 9. Teach patient or legal personal banking representative interventions for comforting Outcome: Progressing Note: Evaluation of progress towards goal: Patient currently denies pain. Patient encouraged to communicate with staff if pain occurs. Will continue to monitor for changes. Problem: Safety Goal: Patient will be injury free during hospitalization Description: INTERVENTIONS: 1. Assess patient's risk for falls and implement fall prevention plan of care per policy 2. Provide and maintain a safe environment 3. Proper use of double Identifiers 4. Medication administration using the 5 rights 5. Hand hygiene 6. Specimens are labeled at the bedside 7. Instruct patient/ patient personal banking representative about use of safety devices 8. Include patient/ patient personal banking representative in decisions related to safety Outcome: Progressing Note: Evaluation of progress towards goal: Patient safety maintained, call light in reach, area clear of hazards, hourly rounding continued, bed locked in lowest position, alarm on as applicable, non skid socks on, safety educated completed with patient/family, no injuries noted at this time. Problem: Infection Goal: Absence of infection during hospitalization Description: INTERVENTIONS 1. Assess and monitor for signs and symptoms of infection. 2. Monitor lab/diagnostic results. 3. Monitor all insertion sites i.e., indwelling lines, tubes and drains. 4. Monitor endotracheal (as able) and nasal secretions for changes in amount and color. 5. Administer medications as ordered. 6. Instruct and encourage patient and family to use good hand hygiene technique. 7. Identify and instruct patient/patient personal banking representative in use of appropriate isolation precautions for identified infection/symptoms. 8. Provide and discuss with patient/patient personal banking representative on educational MDRO sheet. 9. Encourage and monitor nutritional status daily and consult water commissioner if indicated. 10. Implement neutropenic guidelines as needed. Outcome: Progressing Note: Evaluation of progress towards goal: Patient remains free from signs of infection at this time. Will continue to monitor. Problem: Knowledge Deficit Goal: Patient/patient personal banking representative demonstrates understanding of disease process, treatment plan, medications, and discharge instructions Description: INTERVENTIONS 1. Complete learning assessment and assess knowledge base 2. Provide teaching at level of understanding 3. Provide teaching via preferred learning method(s) Outcome: Progressing Note: Evaluation of progress towards goal: Care plan discussed & goals for shift set with patient input appreciated. All questions answered. Problem: Moderate - High Risk Fall Score Description: Valenzuela Fall Score of =/> 25 or indicated by [facility] Assessment Goal: Patient should be free from fall Description: Interventions: 1. [place] to environment 2. Hourly rounds addressing the 4 P's (Pain, Positioning, Possessions, Potty) 3. Clear area of hazards (spills, clutter, electrical cords, unnecessary equipment) 4. Place equipment (bed & TV controls, call light, phone, urinal) within reach 5. Encourage patient to wear glasses and hearing aides as appropriate 6. Maintain bed in lowest position 7. Lock wheels on bed/wheelchair 8. Provide adequate lighting, including night light 9. Assess need for additional bedding, food/fluids, pain med's prior to sleep/routinely 10. Provide gripper slippers or personal non-skid footwear 11. Teach patient and patient personal banking representative to maintain environment for safety and engage in all aspects of fall prevention program 12. Remind patient to call for help before getting out of bed 13. Initiate bed/chair/exit alarms supportive devices as appropriate, (chair wedge, no-skid floor mat, raised edge mattress, hip protectors) 14. Locate patient bed assignment for optimal visualization 15. Evaluate and identify Safe Patient Handling Equipment needs 16. Provide supervision when out of bed or chair 17. Utilize gait belt as needed to assist with ambulation 18. Place adaptive equipment (cane, walker) within reach 19. Request patient personal banking representative bring adaptive equipment/mobility aids from home or obtain and provide as needed 20. Consult pharmacy regarding effects of med's affecting mobility, cognition, and alternatives 21. Obtain physician order for PT if risk factors associated with mobility are present 22. Obtain physician order for OT as appropriate 23. Utilize diversional activities 24. Educate patient and patient personal banking representative how to maintain a safe environment during visitation times (notify nurse prior to leaving bedside) 25. Consider appropriateness of medical or non-biomedical electronics technician 26. Set up voiding schedule as appropriate (every 2 hours) Outcome: Progressing Note: Evaluation of progress towards goal: Fall risk assessment preformed and safety measures in place. Education given to family/patient. Will continue to monitor. Additional Comments: documented in this encounter [facility] 06-23-2025 Progress note Formatting of t his note might be different from the original. DISCHARGE PLANNING NOTE BLS via PTN scheduled for today 06/23/25 at 1 PM to [facility] Progress note Formatting of t his note might be different from the original. DISCHARGE PLANNING NOTE Discharge written, CRF complete. Social work task [facility] to arrange BLS transport- wait confirmed time. [facility] jose ramon Mejia notified of discharge and CRF sent. HENS submitted. is aware and agreeable to transition plan. RN updated. - CHARLES LEE 06/23/25 10:42 AM [facility] 06-23-2025 Hospital course Narrative Images from the original note were not included. [facility] Physicians- Hospital Medicine Discharge Summary Patient's Name: Dariel Zabala Date of : 1940 Age: 85 yrs Gender: male PCP: Patient Care Team: TANYA Lozano as PCP - General (Family Medicine) DATE OF ADMISSION: 06/17/2025 DATE OF DISCHARGE: 06/23/2025 DISCHARGE DIAGNOSES: Active Hospital Problems Diagnosis Date Noted CVA (cerebral vascular accident) ([facility]) 06/17/2025 Resolved Problems No resolved problems to display. CONSULTANTS: Consulting Providers Provider Service Specialty MD Kassi Gonsales Physical Medicine and Rehabilitation Physical Medicine & Rehabilitation MD Kassi Zuniga Nephrology Nephrology [facility] Physician Cardiology -- Cardiology Things needing follow up: - follow-up with Neurology in 3-4 weeks -follow-up with nephrology in 3-4 weeks -follow-up with primary care provider Hospital Course Dariel Peña a 85 y.o.male who was admitted for aphasia and lower extremity weakness. Symptoms with left-sided weakness and aphasia secondary to right P1/P2 occlusion status post TNK on admission Acute encephalopathy suspect multifactorial from metabolic and neurology etiology -MRI brain without contrast did not show any evidence of restricted diffusion, small-vessel ischemic changes in the deep matter supra tentorial, focal area of signal abnormality in the best and white matter of left parietal lobe without evidence of restricted diffusion possible subacute to chronic infarction -CTA revealed right P1/P2 occlusion, status post TNK -repeat CT scan done on 06/21 due to a syncopal event, CT did not reveal any bleed, anticoagulation were started afterwards -VBG did not show any evidence of hypercapnia -electrolytes including sodium appeared to be at his stable level, thyroid panel unremarkable -midodrine were started for hypotension Chronic hyponatremia due to SIADH -sodium appears to be within stable range -continue with salt tablet 1000 mg t.i.d. along with fluid restriction 1.8 L Longstanding atrial fibrillation -sinus bradycardia History of hypertension presently hypotension Hyperlipidemia Appears to be rate controlled on tele -patient did not tolerate beta-blockers, developed sinus bradycardia with minimal pause, evaluated by Cardiology. Continue to hold further beta-blockers. -recommended to transition patient to Eliquis for CVA prophylaxis given inconsistent INR Type 2 diabetes mellitus -blood glucose appears to be within normal limit on daily labs -no need for insulin correction therapy at this time Hypothyroidism -continue levo thyroid 25 mcg BPH -monitor urine output, Recent history of recurrent epistaxis with nasal bone fracture Generalized osteoarthritis Discussed with patient's over the phone regarding care plan and changes in his anticoagulation Patient was discharged to intermediate facility at a stable condition Discharge Medications: Medication List PAUSE taking these medications Instructions Last Dose Given Next Dose Due gabapentin 300 mg capsule Wait to take this until your doctor or other care provider tells you to start again. Commonly known as: NEURONTIN Take 1 capsule (300 mg total) by mouth in the morning. glimepiride 2 mg tablet Wait to take this until your doctor or other care provider tells you to start again. Commonly known as: AMARYL Take 1 tablet (2 mg total) by mouth every morning before breakfast. tamsulosin 0.4 mg capsule Wait to take this until your doctor or other care provider tells you to start again. Commonly known as: FLOMAX Take 1 capsule (0.4 mg total) by mouth nightly. START taking these medications Instructions Last Dose Given Next Dose Due apixaban 5 mg tablet Commonly known as: ELIQUIS Take 1 tablet (5 mg total) by mouth in the morning and 1 tablet (5 mg total) before bedtime. Do all this for 30 days. midodrine 5 mg tablet Commonly known as: PROAMATINE Take 1 tablet (5 mg total) by mouth 3 (three) times a day for 30 days. CONTINUE taking these medications Instructions Last Dose Given Next Dose Due aspirin 81 mg Take 1 tablet (81 mg total) by mouth in the morning. coenzyme [id number] 100-5 mg-unit capsule Take 100 mg by mouth in the morning. finasteride 5 mg tablet Commonly known as: PROSCAR Take 1 tablet (5 mg total) by mouth in the morning. levothyroxine 25 MCG tablet Commonly known as: SYNTHROID, LEVOTHROID Take 1 tablet (25 mcg total) by mouth in the morning. omeprazole 40 mg capsule Commonly known as: PriLOSEC Take 1 capsule (40 mg total) by mouth every morning before breakfast. pravastatin 40 mg tablet Commonly known as: PRAVACHOL Take 1 tablet (40 mg total) by mouth in the morning. sodium chloride 1,000 mg tablet,soluble Take 1 tablet (1,000 mg total) by mouth in the morning and 1 tablet (1,000 mg total) before bedtime. URE-NA 15 gram powder in packet Generic drug: urea Take 1 packet (15 g total) by mouth in the morning. STOP taking these medications atenoloL 25 mg tablet Commonly known as: TENORMIN CIALIS 2.5 mg tablet Generic drug: tadalafiL warfarin 5 mg tablet Commonly known as: COUMADIN Where to Get Your Medications These medications were sent to [facility]/pharmacy #[id number] AT [place] [address] apixaban 5 mg tablet midodrine 5 mg tablet For most accurate medication list, please review the discharge medication summary. DISCHARGE EXAM: Vitals: 06/23/25 1150 BP: 114/63 Pulse: 67 Resp: 16 Temp: 36.5 C (97.7 F) SpO2: 99% General appearance: alert, in no acute distress Skin: No rash, no erythema Lungs: Nonlabored respiration, no wheezing Heart: RRR, No ectopy Abdomen: Abdomen soft, non-tender. Extremities: No edema, no swelling or erythema. Neuro: AAOx1-2, non-focal , hard of hearing Labs: Recent Results (from the past 48 hours) Electrolyte panel Collection Time: 06/21/25 7:25 PM Result Value Ref Range SODIUM 126 (L) 134 - 146 mmol/L POTASSIUM 4.8 3.5 - 5.0 mmol/L CHLORIDE 92 (L) 98 - 109 mmol/L CARBON DIOXIDE 26 22 - 32 mmol/L ANION GAP 8 5 - 15 mmol/L Anti XA unfractionated heparin Collection Time: 06/21/25 7:25 PM Result Value Ref Range ANTI XA UFH 0.37 0.30 - 0.70 IU/mL Basic Metabolic Panel Collection Time: 06/22/25 2:20 AM Result Value Ref Range SODIUM 127 (L) 134 - 146 mmol/L POTASSIUM 4.3 3.5 - 5.0 mmol/L CHLORIDE 93 (L) 98 - 109 mmol/L CARBON DIOXIDE 26 22 - 32 mmol/L ANION GAP 8 5 - 15 mmol/L BLOOD UREA NITROGEN 35 (H) 5 - 27 mg/dL CREATININE 0.76 0.60 - 1.30 mg/dL GLUCOSE 135 (H) 65 - 99 mg/dL CALCIUM 9.1 8.5 - 10.5 mg/dL EGFR Non-Race Dependent 89 >=60 ml/min/1.73sq.m Protime & INR Collection Time: 06/22/25 2:20 AM Result Value Ref Range PROTIME 19.9 (H) 9.8 - 13.2 sec INR 1.8 (H) 0.9 - 1.2 Anti XA unfractionated heparin Collection Time: 06/22/25 2:20 AM Result Value Ref Range ANTI XA UFH 0.56 0.30 - 0.70 IU/mL CBC auto differential Collection Time: 06/22/25 2:21 AM Result Value Ref Range WBC 5.6 4 - 11 x10E9/L RBC Count 4.00 (L) 4.1 - 5.7 X10E12/L Hemoglobin 12.5 (L) 13 - 17 g/dL Hematocrit 36.3 (L) 39 - 50 % MCV 91 80 - 100 fL MCH 31.2 27 - 34 pg MCHC 34.4 32 - 36 g/dL RDW 13.5 11.5 - 15 % Platelet Count 212 150 - 450 X10E9/L MPV 9.8 7 - 12 fL Neutrophils % 57.6 % Lymphocytes % 26.9 % Monocytes % 12.2 % Eosinophils % 2.0 % Basophils % 1.3 % Neutrophils Absolute (A) 3.3 1.5 - 6.6 10*3/uL Lymphocytes Absolute 1.5 1.0 - 3.5 10*3/uL Monocytes Absolute 0.7 0.0 - 0.9 10*3/uL Eosinophils Absolute 0.1 0.0 - 0.4 10*3/uL Basophils Absolute 0.1 0.0 - 0.2 10*3/uL Differential Type AUTOMATED DIFFERENTIAL Extra Tubes Collection Time: 06/22/25 5:40 AM Narrative The following orders were created for panel order Extra Tubes. Procedure Abnormality Status --------- ------ Lavender Top[[id number]] Final result Please view results for these tests on the individual orders. Lavender Top Collection Time: 06/22/25 5:40 AM Result Value Ref Range Extra Tube Auto Resulted Electrolyte panel Collection Time: 06/22/25 5:42 AM Result Value Ref Range SODIUM 129 (L) 134 - 146 mmol/L POTASSIUM 4.4 3.5 - 5.0 mmol/L CHLORIDE 94 (L) 98 - 109 mmol/L CARBON DIOXIDE 28 22 - 32 mmol/L ANION GAP 7 5 - 15 mmol/L Electrolyte panel Collection Time: 06/22/25 6:09 PM Result Value Ref Range SODIUM 129 (L) 134 - 146 mmol/L POTASSIUM 4.4 3.5 - 5.0 mmol/L CHLORIDE 93 (L) 98 - 109 mmol/L CARBON DIOXIDE 28 22 - 32 mmol/L ANION GAP 8 5 - 15 mmol/L Basic Metabolic Panel Collection Time: 06/23/25 6:11 AM Result Value Ref Range SODIUM 133 (L) 134 - 146 mmol/L POTASSIUM 4.5 3.5 - 5.0 mmol/L CHLORIDE 95 (L) 98 - 109 mmol/L CARBON DIOXIDE 31 22 - 32 mmol/L ANION GAP 7 5 - 15 mmol/L BLOOD UREA NITROGEN 29 (H) 5 - 27 mg/dL CREATININE 0.80 0.60 - 1.30 mg/dL GLUCOSE 101 (H) 65 - 99 mg/dL CALCIUM 9.9 8.5 - 10.5 mg/dL EGFR Non-Race Dependent 88 >=60 ml/min/1.73sq.m CBC auto differential Collection Time: 06/23/25 6:11 AM Result Value Ref Range WBC 4.2 4 - 11 x10E9/L RBC Count 4.40 4.1 - 5.7 X10E12/L Hemoglobin 13.8 13 - 17 g/dL Hematocrit 40.0 39 - 50 % MCV 91 80 - 100 fL MCH 31.3 27 - 34 pg MCHC 34.5 32 - 36 g/dL RDW 13.8 11.5 - 15 % Platelet Count 234 150 - 450 X10E9/L MPV 9.5 7 - 12 fL Neutrophils % 50.6 % Lymphocytes % 34.7 % Monocytes % 10.2 % Eosinophils % 3.0 % Basophils % 1.5 % Neutrophils Absolute (A) 2.1 1.5 - 6.6 10*3/uL Lymphocytes Absolute 1.5 1.0 - 3.5 10*3/uL Monocytes Absolute 0.4 0.0 - 0.9 10*3/uL Eosinophils Absolute 0.1 0.0 - 0.4 10*3/uL Basophils Absolute 0.1 0.0 - 0.2 10*3/uL Differential Type AUTOMATED DIFFERENTIAL Protime & INR Collection Time: 06/23/25 6:11 AM Result Value Ref Range PROTIME 32.1 (H) 9.8 - 13.2 sec INR 2.8 (H) 0.9 - 1.2 Magnesium Collection Time: 06/23/25 6:11 AM Result Value Ref Range MAGNESIUM 1.6 (L) 1.8 - 2.6 mg/dL Phosphorus Collection Time: 06/23/25 6:11 AM Result Value Ref Range PHOSPHORUS 3.5 2.4 - 4.9 mg/dL Ionized calcium Collection Time: 06/23/25 6:11 AM Result Value Ref Range IONIZED CALCIUM - ICAN 5.1 4.5 - 5.3 mg/dL Electrolyte panel Collection Time: 06/23/25 12:46 PM Result Value Ref Range SODIUM 133 (L) 134 - 146 mmol/L POTASSIUM 4.2 3.5 - 5.0 mmol/L CHLORIDE 96 (L) 98 - 109 mmol/L CARBON DIOXIDE 27 22 - 32 mmol/L ANION GAP 10 5 - 15 mmol/L Radiology: No results found. Discharge Instructions Disposition: Discharge to intermediate facility Condition: Stable Activity: activity as tolerated Diet: Adult diet Regular Texture; Fluid Restriction 1800 mL Adult diet Yanique Mcneill APRN-[employer] ATTORNEY [address] [facility] [id number] Follow up Information Provided to the Patient: Patient given copy of Discharge Instructions, patient hospital stay was discussed. No special instructions. I have spent 35 minutes coordinating and preparing this discharge. I have discussed the patient's hospitalization course, treatment plan and follow up instructions with patient and . I have answered all the patient's questions. Electronically signed by: ERIKA CRISOSTOMO MD [facility] Hospital[facility], Department of Internal Medicine 06/23/25 1:57 PM This note was partially dictated with the use of M*Modal.Please note that this dictation was completed with computer voice recognition software. Quite often unanticipated grammatical, syntax, homophones, and other interpretive errors are inadvertently transcribed by the computer software. Please disregard these errors. Please excuse any errors that have escaped final proofreading documented in this encounter [facility] 06-23-2025 History of Present illness Narrative Images from the original note were not included. Nephrology Daily Progress Note INTERVAL HISTORY: Denies any shortness breath denies any chest pain. Denies any dizziness. On room air. VITAL SIGNS TREND: Vitals: 06/22/25 1201 06/22/25 1548 06/22/25 1905 06/23/25 0438 BP: 107/59 136/73 143/72 Pulse: 64 56 77 Resp: 16 17 Temp: 36.8 C (98.2 F) 36.8 C (98.3 F) TempSrc: Oral Oral SpO2: 95% 95% 96% Weight: 71.6 kg (157 lb 13.6 oz) Height: INTAKE/OUTPUT: Intake/Output Summary (Last 24 hours) at 06/23/2025 0738 Last data filed at 06/22/2025 1825 Gross per 24 hour Intake 100 ml Output 475 ml Net -375 ml No intake/output data recorded. WEIGHT: Last 3 Weight Readings 06/21/25 0500 06/22/25 0500 06/23/25 0438 Weight: 78.2 kg (172 lb 6.4 oz) 72.1 kg (158 lb 15.2 oz) 71.6 kg (157 lb 13.6 oz) PHYSICAL EXAM: Blood pressure 143/72, pulse 77, temperature 36.8 C (98.3 F), temperature source Oral, resp. rate 17, height 177.8 cm (5' 10 ), weight 71.6 kg (157 lb 13.6 oz), SpO2 96%. Temp: [36.8 C (98.2 F)-37.4 C (99.3 F)] 36.8 C (98.3 F) Pulse: [56-84] 77 Resp: [16-18] 17 BP: (107-143)/(59-73) 143/72 SpO2: [95 %-96 %] 96 % O2 Device: None (Room air) O2 Flow Rate (L/min): [0 L/min] 0 L/min General appearance: alert in no apparent distress. HEENT: no JVD, no lymphadenopathy. Heart exam: normal S1-S2 Lungs: clear to auscultation bilaterally Abdomen: soft, no tenderness, no guarding, positive bowel sounds Extremities: no edema Vascular: adequate pulses and no carotid bruits. Musculoskeletal: no joint tenderness or swelling. LABORATORY EVALUATION: Results from last 7 days Lab Units 06/23/25 0611 06/22/25 1809 06/22/25 0542 06/22/25 0220 06/21/25 1925 06/21/25 1314 06/21/25 0758 06/20/25 1238 06/20/25 0844 06/19/25 1927 06/19/25 0718 06/18/25 1528 06/18/25 0343 06/17/25 1653 SODIUM mmol/L -- 129* 129* 127* 126* 127* 127* < > 124* < > 123* -- 127* 127* POTASSIUM mmol/L -- 4.4 4.4 4.3 4.8 4.4 4.5 < > 4.3 < > 4.3 -- 4.3 4.5 CHLORIDE mmol/L -- 93* 94* 93* 92* 93* 93* < > 89* < > 88* -- 93* 93* CO2 mmol/L -- 28 28 26 26 25 25 < > 27 < > 26 -- 24 26 ANION GAP mmol/L -- 8 7 8 8 9 9 < > 8 < > 9 -- 10 8 BUN mg/dL -- -- -- 35* -- -- 25 -- 12 -- 10 -- 10 10 CREATININE mg/dL -- -- -- 0.76 -- -- 0.72 -- 0.73 -- 0.73 -- 0.71 0.75 CALCIUM mg/dL -- -- -- 9.1 -- -- 9.0 -- 9.0 -- 8.8 -- 9.1 9.2 MAGNESIUM mg/dL -- -- -- -- -- -- -- -- -- -- 2.3 1.6* -- 1.7* PHOSPHORUS mg/dL -- -- -- -- -- -- -- -- -- -- -- -- -- 3.3 CALCIUM, IONIZED mg/dL 5.1 -- -- -- -- -- -- -- -- -- -- -- -- -- < > = values in this interval not displayed. Results from last 7 days Lab Units 06/17/25 1653 PROTEIN TOTAL g/dL 6.5 ALBUMIN g/dL 3.9 AST U/L 20 ALT U/L 11 BILIRUBIN, TOTAL mg/dL 1.1 ALK PHOS U/L 81 Results from last 7 days Lab Units 06/23/25 0611 06/22/25 0221 06/21/25 0758 06/20/25 0844 06/19/25 0718 WBC x10E9/L 4.2 5.6 5.3 6.5 7.9 HEMOGLOBIN g/dL 13.8 12.5* 14.1 13.3 13.4 HEMATOCRIT % 40.0 36.3* 40.7 38.1* 38.7* PLATELETS X10E9/L 234 212 189 204 200 @RESUFAST(IRON,TIBC,FERRITIN,IRON SAT,FOLATE,[id number]))@ Results from last 7 days Lab Units 06/22/25 0220 06/21/25 0758 06/20/25 0844 06/19/25 0718 06/18/25 1601 BEDSIDE GLUCOSE mg/dL -- -- -- -- 154* GLUCOSE mg/dL 135* 121* 98 104* -- Results from last 7 days Lab Units 06/21/25 1314 CPK ISOENZYMES U/L 26 CURRENT MEDICATIONS: apixaban, 5 mg, oral, BID levothyroxine, 25 mcg, oral, Daily lidocaine, 1 patch, transdermal, Daily midodrine, 5 mg, oral, TID pantoprazole, 40 mg, oral, Daily rosuvastatin, 5 mg, oral, Nightly sodium chloride, 1,000 mg, oral, 3x daily around food urea, 15 g, oral, BID PROBLEM LIST: Acute CVA with right-sided weakness, CT angiogram revealed right P1/ P2 occlusion, he received TNK, patient is confused Chronic hyponatremia due to SIADH, the patient was on salt tablets dysuria at home which were restarted, sodium is improving, urine osmolality 565, urine sodium was 64 and urine creatinine , thyroid function was unremarkable, uric acid 4.4 Diabetes mellitus type 2 Atrial fibrillation on chronic anticoagulation Dyslipidemia Chronic hyponatremia Hypothyroidism Benign prostatic hypertrophy Nasal bone fracture Cervical disc disease Carpal tunnel release Hard of hearing IMPRESSION: 1. Hyponatremia secondary to Syndrome of Inappropriate ADH secretion (SIADH). Sodium improving with the salt tablets, urea packets and fluid restriction. 2. Acute Cerebrovascular accident with right-sided weakness: Neurology is following 3. Hypotension: On ProAmatine with holding parameters to maintain systolic blood pressure more than 110 and less than 120. 4. Atrial fibrillation: Rate controlled. Atenolol was added on June 22, 2025 for tachycardia with a exertion however he developed bradycardia with a block for which atenolol was discontinued and Cardiology was consulted. 5. Diabetes mellitus type 2: Management per Internal Medicine Service PLAN: 1. Continue salt tablets and urea packets 2. Continue fluid restriction 3. Continue to follow electrolytes every 8 hours 4. Continue ProAmatine with holding parameters According to Neurology note from June 21, the goal for blood pressure is normotension at this time. Discussed with his nurse at the bedside Toy Baez M.D. For questions please call: Answering Service at [phone] Or Office at [phone] This note was created with the assistance of a speech-recognition program. Although the intention is to generate a document that actually reflects the content of the visit, no guarantees can be provided that every mistake has been identified and corrected by editing. Images from the original note were not included. [facility] Hospital[facility] Progress Note 06/22/2025 Patient Name: Dariel Zabala DOB: 1940 Hospital Day: 6 Impression and plan: Symptoms with left-sided weakness and aphasia secondary to right P1/P2 occlusion status post TNK on admission Acute encephalopathy suspect multifactorial from metabolic and neurology etiology -MRI brain without contrast did not show any evidence of restricted diffusion, small-vessel ischemic changes in the deep matter supra tentorial, focal area of signal abnormality in the best and white matter of left parietal lobe without evidence of restricted diffusion possible subacute to chronic infarction -CTA revealed right P1/P2 occlusion -neurology following -on 06/21 patient had another mental status change and became confused while working with therapy , possible syncopal event -heparin were held, stat CT did not reveal any bleed, anticoagulation were started afterwards -VBG did not show any evidence of hypercapnia -electrolytes including sodium appeared to be at his stable level, thyroid panel unremarkable Obtain orthostatic Vital, still pending -normal WBC count, afebrile, low suspicion for infectious etiology -noted midodrine were started by Nephrology Chronic hyponatremia due to SIADH -sodium appears to be within stable range -continue with salt tablet 1000 mg t.i.d. along with fluid restriction 1.8 L Longstanding atrial fibrillation on Coumadin Hypertension Hyperlipidemia Appears to be rate controlled on tele -restart home atenolol with parameters today -Coumadin being bridged with IV heparin -goal INR 2-3 -continue with telemetry monitoring -continue with statin -if INR remains below therapeutic range, will plan on Lovenox and Coumadin at the time of discharge Type 2 diabetes mellitus -blood glucose appears to be within normal limit on daily labs -no need for insulin correction therapy at this time Hypothyroidism -continue levo thyroid 25 mcg BPH -monitor urine output, Recent history of recurrent epistaxis with nasal bone fracture Generalized osteoarthritis -DVT Prophylaxis: Warfarin and IV heparin -Code Status: Full code Disposition: Authorization obtained later today, will plan for discharge tomorrow if hemodynamically stable SUBJECTIVE The patient seen and examined. No acute events overnight. He appears much better today than yesterday. He is hard of hearing. Answered and followed commands appropriately. Discussed with over the phone at bedside regarding care plan as well. OBJECTIVE Vital Signs: Temp: [36.7 C (98 F)-37.4 C (99.3 F)] 36.8 C (98.2 F) Pulse: [64-84] 64 Resp: [16-18] 16 BP: (102-128)/(59-64) 107/59 SpO2: [95 %-96 %] 95 % O2 Device: None (Room air) O2 Flow Rate (L/min): [0 L/min] 0 L/min Weight: Body mass index is 22.81 kg/m . Admission weight: 78 kg (171 lb 15.3 oz) Wt Readings from Last 3 Encounters: 06/22/25 72.1 kg (158 lb 15.2 oz) Input/Output: Intake/Output Summary (Last 24 hours) at 06/22/2025 1257 Last data filed at 06/22/2025 1125 Gross per 24 hour Intake 930 ml Output 1025 ml Net -95 ml Physical Exam: Physical Exam HENT: Mouth/Throat: Mouth: Mucous membranes are moist. Cardiovascular: Rate and Rhythm: Normal rate. Rhythm irregular. Pulmonary: Effort: Pulmonary effort is normal. Breath sounds: Normal breath sounds. Abdominal: General: Abdomen is flat. Neurological: Mental Status: He is alert. Mental status is at baseline. Comments: Good strength notice on lower extremity, unable to follow all commands Labs/Imaging: Recent Results (from the past 24 hours) Electrolyte panel Collection Time: 06/21/25 1:14 PM Result Value Ref Range SODIUM 127 (L) 134 - 146 mmol/L POTASSIUM 4.4 3.5 - 5.0 mmol/L CHLORIDE 93 (L) 98 - 109 mmol/L CARBON DIOXIDE 25 22 - 32 mmol/L ANION GAP 9 5 - 15 mmol/L C-reactive protein Collection Time: 06/21/25 1:14 PM Result Value Ref Range C REACTIVE PROTEIN 8.9 (H) <=0.7 mg/dL CK Total Collection Time: 06/21/25 1:14 PM Result Value Ref Range CPK 26 24 - 195 U/L Electrolyte panel Collection Time: 06/21/25 7:25 PM Result Value Ref Range SODIUM 126 (L) 134 - 146 mmol/L POTASSIUM 4.8 3.5 - 5.0 mmol/L CHLORIDE 92 (L) 98 - 109 mmol/L CARBON DIOXIDE 26 22 - 32 mmol/L ANION GAP 8 5 - 15 mmol/L Anti XA unfractionated heparin Collection Time: 06/21/25 7:25 PM Result Value Ref Range ANTI XA UFH 0.37 0.30 - 0.70 IU/mL Basic Metabolic Panel Collection Time: 06/22/25 2:20 AM Result Value Ref Range SODIUM 127 (L) 134 - 146 mmol/L POTASSIUM 4.3 3.5 - 5.0 mmol/L CHLORIDE 93 (L) 98 - 109 mmol/L CARBON DIOXIDE 26 22 - 32 mmol/L ANION GAP 8 5 - 15 mmol/L BLOOD UREA NITROGEN 35 (H) 5 - 27 mg/dL CREATININE 0.76 0.60 - 1.30 mg/dL GLUCOSE 135 (H) 65 - 99 mg/dL CALCIUM 9.1 8.5 - 10.5 mg/dL EGFR Non-Race Dependent 89 >=60 ml/min/1.73sq.m Protime & INR Collection Time: 06/22/25 2:20 AM Result Value Ref Range PROTIME 19.9 (H) 9.8 - 13.2 sec INR 1.8 (H) 0.9 - 1.2 Anti XA unfractionated heparin Collection Time: 06/22/25 2:20 AM Result Value Ref Range ANTI XA UFH 0.56 0.30 - 0.70 IU/mL CBC auto differential Collection Time: 06/22/25 2:21 AM Result Value Ref Range WBC 5.6 4 - 11 x10E9/L RBC Count 4.00 (L) 4.1 - 5.7 X10E12/L Hemoglobin 12.5 (L) 13 - 17 g/dL Hematocrit 36.3 (L) 39 - 50 % MCV 91 80 - 100 fL MCH 31.2 27 - 34 pg MCHC 34.4 32 - 36 g/dL RDW 13.5 11.5 - 15 % Platelet Count 212 150 - 450 X10E9/L MPV 9.8 7 - 12 fL Neutrophils % 57.6 % Lymphocytes % 26.9 % Monocytes % 12.2 % Eosinophils % 2.0 % Basophils % 1.3 % Neutrophils Absolute (A) 3.3 1.5 - 6.6 10*3/uL Lymphocytes Absolute 1.5 1.0 - 3.5 10*3/uL Monocytes Absolute 0.7 0.0 - 0.9 10*3/uL Eosinophils Absolute 0.1 0.0 - 0.4 10*3/uL Basophils Absolute 0.1 0.0 - 0.2 10*3/uL Differential Type AUTOMATED DIFFERENTIAL Extra Tubes Collection Time: 06/22/25 5:40 AM Narrative The following orders were created for panel order Extra Tubes. Procedure Abnormality Status --------- ------ Lavender Top[[id number]] Final result Please view results for these tests on the individual orders. Lavender Top Collection Time: 06/22/25 5:40 AM Result Value Ref Range Extra Tube Auto Resulted Electrolyte panel Collection Time: 06/22/25 5:42 AM Result Value Ref Range SODIUM 129 (L) 134 - 146 mmol/L POTASSIUM 4.4 3.5 - 5.0 mmol/L CHLORIDE 94 (L) 98 - 109 mmol/L CARBON DIOXIDE 28 22 - 32 mmol/L ANION GAP 7 5 - 15 mmol/L Microbiology Results No results found for the last 168 hours. No results found. All available laboratory, imaging, and microbiology data has been personally reviewed in detail, and accessible in full per EMR. Medications: atenoloL, 25 mg, oral, Daily levothyroxine, 25 mcg, oral, Daily lidocaine, 1 patch, transdermal, Daily midodrine, 5 mg, oral, TID pantoprazole, 40 mg, oral, Daily rosuvastatin, 5 mg, oral, Nightly sodium chloride, 1,000 mg, oral, 3x daily around food urea, 15 g, oral, BID warfarin, 2.5 mg, oral, Once per day on Tuesday warfarin, 5 mg, oral, Once per day on Tuesday Infusion: heparin, 300-3,500 Units/hr, Last Rate: 1,050 Units/hr (06/21/25 1326) PRN medications: acetaminophen OR acetaminophen calcium gluconate calcium gluconate calcium gluconate dextrose dextrose 50 % in water (D50W) glucagon (human recombinant) heparin (porcine) hydrALAZINE labetalol magnesium sulfate OR magnesium sulfate potassium chloride OR potassium chloride OR potassium chloride IV (Adult) sodium phosphate IV OR sodium phosphate IV - central line OR sod phos di, mono-K phos mono sodium chloride Current care plan discussed in detail with the pt and verbalized understanding. Further management will follow based on the clinical course of the patient and results of ongoing evaluation Electronically signed by: ERIKA CRISOSTOMO MD 06/22/2025 Disclaimer Note: To increase efficiency, your provider may have prepared this document using voice recognition technology. In that case, if a word or phrase is confusing, or does not make sense, this is likely due to a recognition error within the program which was not discovered during the provider s review. If you believe an error has occurred, please notify your provider s office at your earliest convenience, so we can correct any mistakes. Images from the original note were not included. Nephrology Daily Progress Note INTERVAL HISTORY: Denies any shortness breath denies any chest pain. Denies any dizziness. On room air. VITAL SIGNS TREND: Vitals: 06/21/25 1930 06/21/25 2300 06/22/25 0500 06/22/25 0800 BP: 122/64 128/61 Pulse: 72 84 Resp: 17 18 18 Temp: 36.8 C (98.2 F) 37 C (98.6 F) 37.4 C (99.3 F) TempSrc: Oral Oral Axillary SpO2: 96% 95% 96% Weight: 72.1 kg (158 lb 15.2 oz) Height: INTAKE/OUTPUT: Intake/Output Summary (Last 24 hours) at 06/22/2025 0859 Last data filed at 06/22/2025 0849 Gross per 24 hour Intake 1450 ml Output 750 ml Net 700 ml I/O this shift: In: - Out: 200 [Urine:200] WEIGHT: Last 3 Weight Readings 06/20/25 0500 06/21/25 0500 06/22/25 0500 Weight: 77.9 kg (171 lb 11.8 oz) 78.2 kg (172 lb 6.4 oz) 72.1 kg (158 lb 15.2 oz) PHYSICAL EXAM: Blood pressure 128/61, pulse 84, temperature 37.4 C (99.3 F), temperature source Axillary, resp. rate 18, height 177.8 cm (5' 10 ), weight 72.1 kg (158 lb 15.2 oz), SpO2 96%. Temp: [36.7 C (98 F)-37.4 C (99.3 F)] 37.4 C (99.3 F) Pulse: [70-84] 84 Resp: [17-18] 18 BP: (98-128)/(59-65) 128/61 SpO2: [95 %-96 %] 96 % O2 Device: None (Room air) O2 Flow Rate (L/min): [0 L/min] 0 L/min General appearance: alert in no apparent distress. HEENT: no JVD, no lymphadenopathy. Heart exam: normal S1-S2 Lungs: clear to auscultation bilaterally Abdomen: soft, no tenderness, no guarding, positive bowel sounds Extremities: no edema Vascular: adequate pulses and no carotid bruits. Musculoskeletal: no joint tenderness or swelling. LABORATORY EVALUATION: Results from last 7 days Lab Units 06/22/25 0542 06/22/25 0220 06/21/25 1925 06/21/25 1314 06/21/25 0758 06/20/25 1238 06/20/25 0844 06/19/25 1927 06/19/25 0718 06/18/25 1528 06/18/25 0343 06/17/25 1653 SODIUM mmol/L 129* 127* 126* 127* 127* < > 124* < > 123* -- 127* 127* POTASSIUM mmol/L 4.4 4.3 4.8 4.4 4.5 < > 4.3 < > 4.3 -- 4.3 4.5 CHLORIDE mmol/L 94* 93* 92* 93* 93* < > 89* < > 88* -- 93* 93* CO2 mmol/L 28 26 26 25 25 < > 27 < > 26 -- 24 26 ANION GAP mmol/L 7 8 8 9 9 < > 8 < > 9 -- 10 8 BUN mg/dL -- 35* -- -- 25 -- 12 -- 10 -- 10 10 CREATININE mg/dL -- 0.76 -- -- 0.72 -- 0.73 -- 0.73 -- 0.71 0.75 CALCIUM mg/dL -- 9.1 -- -- 9.0 -- 9.0 -- 8.8 -- 9.1 9.2 MAGNESIUM mg/dL -- -- -- -- -- -- -- -- 2.3 1.6* -- 1.7* PHOSPHORUS mg/dL -- -- -- -- -- -- -- -- -- -- -- 3.3 < > = values in this interval not displayed. Results from last 7 days Lab Units 06/17/25 1653 PROTEIN TOTAL g/dL 6.5 ALBUMIN g/dL 3.9 AST U/L 20 ALT U/L 11 BILIRUBIN, TOTAL mg/dL 1.1 ALK PHOS U/L 81 Results from last 7 days Lab Units 06/22/25 02206/21/25 0758 06/20/25 0844 06/19/25 0718 06/18/25 1528 06/18/25 0343 WBC x10E9/L 5.6 5.3 6.5 7.9 -- 5.4 HEMOGLOBIN g/dL 12.5* 14.1 13.3 13.4 13.9 12.7* HEMATOCRIT % 36.3* 40.7 38.1* 38.7* -- 36.0* PLATELETS X10E9/L 212 189 204 200 214 251 @RESUFAST(IRON,TIBC,FERRITIN,IRON SAT,FOLATE,[id number]))@ Results from last 7 days Lab Units 06/22/25 02206/21/25 0758 06/20/25 0844 06/19/25 0718 06/18/25 1601 BEDSIDE GLUCOSE mg/dL -- -- -- -- 154* GLUCOSE mg/dL 135* 121* 98 104* -- Results from last 7 days Lab Units 06/21/25 1314 CPK ISOENZYMES U/L 26 CURRENT MEDICATIONS: levothyroxine, 25 mcg, oral, Daily lidocaine, 1 patch, transdermal, Daily midodrine, 5 mg, oral, TID pantoprazole, 40 mg, oral, Daily rosuvastatin, 5 mg, oral, Nightly sodium chloride, 1,000 mg, oral, 3x daily around food urea, 15 g, oral, BID warfarin, 2.5 mg, oral, Once per day on Tuesday warfarin, 5 mg, oral, Once per day on Tuesday PROBLEM LIST: Acute CVA with right-sided weakness, CT angiogram revealed right P1/ P2 occlusion, he received TNK, patient is confused Chronic hyponatremia due to SIADH, the patient was on salt tablets dysuria at home which were restarted, sodium is improving, urine osmolality 565, urine sodium was 64 and urine creatinine , thyroid function was unremarkable, uric acid 4.4 Diabetes mellitus type 2 Atrial fibrillation on chronic anticoagulation Dyslipidemia Chronic hyponatremia Hypothyroidism Benign prostatic hypertrophy Nasal bone fracture Cervical disc disease Carpal tunnel release Hard of hearing IMPRESSION: 1. Hyponatremia secondary to Syndrome of Inappropriate ADH secretion (SIADH). Sodium improving with the salt tablets and fluid restriction. 2. Acute Cerebrovascular accident with right-sided weakness: Neurology is following 3. Hypotension: Blood pressure improved with ProAmatine 4. Atrial fibrillation: Rate controlled. 5. Diabetes mellitus type 2: Management per Internal Medicine Service PLAN: 1. Continue salt tablets 2. Continue fluid restriction 3. Continue to follow electrolytes every 8 hours 4. Continue ProAmatine with holding parameters Toy Baez M.D. For questions please call: Answering Service at [phone] Or Office at [phone] This note was created with the assistance of a speech-recognition program. Although the intention is to generate a document that actually reflects the content of the visit, no guarantees can be provided that every mistake has been identified and corrected by editing. Pharmacokinetic Consult - Follow Up Warfarin Dosing Dariel Zabala is a 85 y.o. male for whom pharmacy has been consulted for warfarin dosing and monitoring. Subjective Anticoag Therapy Indication: Cardiac dysrhythmia Target INR: 2 - 3 Current inpatient warfarin regimen: 5 mg MWF, 2.5 mg all other days Current Hematologic Labs Results from last 7 days Lab Units 06/22/25 0220 06/21/25 0758 06/20/25 0844 06/18/25 1528 06/18/25 1101 INR 1.8* 1.6* 1.3* 1.1 1.1 Warfarin Administrations (last 168 hours) Date/Time Action Medication Dose 06/21/25 1549 Given warfarin (COUMADIN) tablet 5 mg 5 mg 06/20/25 1705 Given warfarin (COUMADIN) tablet 2.5 mg 2.5 mg 06/19/25 1753 Given warfarin (COUMADIN) tablet 5 mg 5 mg Assessment INR currently: subtherapeutic Drug-drug interactions: none Drug-disease state interactions: none Other pertinent information: bridging with heparin drip Plan RX Anticoag Warfarin IP dose plan: Continue current regimen of 5 mg MWF and 2.5 mg all other days. Pharmacist will continue to follow patient's clinical progress daily. Griselda Ramirez PharmD Ext [phone] Images from the original note were not included. [facility] Hospitalists Progress Note 06/21/2025 Patient Name: Dariel Zabala : 1940 Hospital Day: 5 Impression and plan: Symptoms with left-sided weakness and aphasia secondary to right P1/P2 occlusion status post TNK on admission Acute encephalopathy suspect multifactorial from metabolic and neurology etiology -MRI brain without contrast did not show any evidence of restricted diffusion, small-vessel ischemic changes in the deep matter supra tentorial, focal area of signal abnormality in the best and white matter of left parietal lobe without evidence of restricted diffusion possible subacute to chronic infarction -CTA revealed right P1/P2 occlusion -neurology following -on 06/21 patient had another mental status change and became confused while working with therapy , possible syncopal event -heparin were held, stat CT did not reveal any bleed, anticoagulation were started afterwards -VBG did not show any evidence of hypercapnia -electrolytes including sodium appeared to be at his stable level, thyroid panel unremarkable -will obtain orthostatic vital given hypotension -normal WBC count, afebrile, low suspicion for infectious etiology -noted midodrine were started by Nephrology Chronic hyponatremia due to SIADH -sodium appears to be within stable range -continue with salt tablet 1000 mg t.i.d. along with fluid restriction 1.8 L Longstanding atrial fibrillation on Coumadin Hypertension Hyperlipidemia Appears to be rate controlled on tele -not on any rate or rhythm control agents -Coumadin being bridged with IV heparin -goal INR 2-3 -continue with telemetry monitoring -continue with statin Type 2 diabetes mellitus -blood glucose appears to be within normal limit on daily labs -no need for insulin correction therapy at this time Hypothyroidism -continue levo thyroid 25 mcg BPH -monitor urine output, Recent history of recurrent epistaxis with nasal bone fracture Generalized osteoarthritis -DVT Prophylaxis: Warfarin and IV heparin -Code Status: Full code Disposition: To be determined later. SUBJECTIVE The patient seen and examined. Patient was transferred to our service today from Neurology. This morning patient was found to have decreased responsiveness while leaning to left while on commode by therapy team. Found to be borderline hypotensive as well. During my evaluation patient was placed back in his chair, per nursing team his mentation was close to his baseline however he remains somewhat confused. Only able to tell me his name not to time and place. Following commands intermittently. OBJECTIVE Vital Signs: Temp: [36.3 C (97.3 F)-36.7 C (98 F)] 36.7 C (98 F) Pulse: [67-82] 82 Resp: [14-19] 18 BP: (92-146)/(46-92) 102/59 SpO2: [94 %-99 %] 96 % O2 Device: None (Room air) O2 Flow Rate (L/min): [0 L/min] 0 L/min Weight: Body mass index is 24.74 kg/m . Admission weight: 78 kg (171 lb 15.3 oz) Wt Readings from Last 3 Encounters: 06/21/25 78.2 kg (172 lb 6.4 oz) Input/Output: Intake/Output Summary (Last 24 hours) at 06/21/2025 1547 Last data filed at 06/21/2025 1100 Gross per 24 hour Intake 620 ml Output 200 ml Net 420 ml Physical Exam: Physical Exam HENT: Mouth/Throat: Mouth: Mucous membranes are moist. Cardiovascular: Rate and Rhythm: Normal rate. Rhythm irregular. Pulmonary: Effort: Pulmonary effort is normal. Breath sounds: Normal breath sounds. Abdominal: General: Abdomen is flat. Neurological: Mental Status: He is alert. He is disoriented. Comments: Good strength notice on lower extremity, unable to follow all commands Labs/Imaging: Recent Results (from the past 24 hours) Urine Creatinine,random Collection Time: 06/20/25 5:02 PM Specimen: Urine Result Value Ref Range URINE CREATININE,RDM 150.26 mg/dL Sodium, urine, random Collection Time: 06/20/25 5:02 PM Specimen: Urine Result Value Ref Range URINE SODIUM,RANDOM 64 mmol/L Osmolality, urine Collection Time: 06/20/25 5:02 PM Specimen: Urine Result Value Ref Range URINE OSMOLALITY 565 300 - 1,300 mOsm/kg H2 Electrolyte panel Collection Time: 06/20/25 6:06 PM Result Value Ref Range SODIUM 122 (L) 134 - 146 mmol/L POTASSIUM 4.8 3.5 - 5.0 mmol/L CHLORIDE 90 (L) 98 - 109 mmol/L CARBON DIOXIDE 24 22 - 32 mmol/L ANION GAP 8 5 - 15 mmol/L Extra Tubes Collection Time: 06/20/25 6:07 PM Narrative The following orders were created for panel order Extra Tubes. Procedure Abnormality Status --------- ------ Lavender Top[[id number]] Final result Please view results for these tests on the individual orders. Lavender Top Collection Time: 06/20/25 6:07 PM Result Value Ref Range Extra Tube Auto Resulted Electrolyte panel Collection Time: 06/21/25 12:13 AM Result Value Ref Range SODIUM 124 (L) 134 - 146 mmol/L POTASSIUM 4.6 3.5 - 5.0 mmol/L CHLORIDE 90 (L) 98 - 109 mmol/L CARBON DIOXIDE 25 22 - 32 mmol/L ANION GAP 9 5 - 15 mmol/L Basic Metabolic Panel Collection Time: 06/21/25 7:58 AM Result Value Ref Range SODIUM 127 (L) 134 - 146 mmol/L POTASSIUM 4.5 3.5 - 5.0 mmol/L CHLORIDE 93 (L) 98 - 109 mmol/L CARBON DIOXIDE 25 22 - 32 mmol/L ANION GAP 9 5 - 15 mmol/L BLOOD UREA NITROGEN 25 5 - 27 mg/dL CREATININE 0.72 0.60 - 1.30 mg/dL GLUCOSE 121 (H) 65 - 99 mg/dL CALCIUM 9.0 8.5 - 10.5 mg/dL EGFR Non-Race Dependent >90 >=60 ml/min/1.73sq.m CBC auto differential Collection Time: 06/21/25 7:58 AM Result Value Ref Range WBC 5.3 4 - 11 x10E9/L RBC Count 4.56 4.1 - 5.7 X10E12/L Hemoglobin 14.1 13 - 17 g/dL Hematocrit 40.7 39 - 50 % MCV 89 80 - 100 fL MCH 30.9 27 - 34 pg MCHC 34.7 32 - 36 g/dL RDW 13.8 11.5 - 15 % Platelet Count 189 150 - 450 X10E9/L MPV 9.7 7 - 12 fL Neutrophils % 57.5 % Lymphocytes % 28.5 % Monocytes % 12.0 % Eosinophils % 0.9 % Basophils % 1.1 % Neutrophils Absolute (A) 3.0 1.5 - 6.6 10*3/uL Lymphocytes Absolute 1.5 1.0 - 3.5 10*3/uL Monocytes Absolute 0.6 0.0 - 0.9 10*3/uL Eosinophils Absolute 0.0 0.0 - 0.4 10*3/uL Basophils Absolute 0.1 0.0 - 0.2 10*3/uL Differential Type AUTOMATED DIFFERENTIAL Protime & INR Collection Time: 06/21/25 7:58 AM Result Value Ref Range PROTIME 17.7 (H) 9.8 - 13.2 sec INR 1.6 (H) 0.9 - 1.2 Anti XA unfractionated heparin Collection Time: 06/21/25 7:58 AM Result Value Ref Range ANTI XA UFH 0.65 0.30 - 0.70 IU/mL Erythrocyte Sedimentation Rate (ESR) Collection Time: 06/21/25 7:58 AM Result Value Ref Range ESR, Erythrocyte Sedimentation Rate 46 (H) 0 - 20 mm/h Blood gas, venous Collection Time: 06/21/25 10:26 AM Result Value Ref Range Sample type VENOUS pH, Venous 7.351 7.320 - 7.420 pCO2, Venous 51.8 (H) 35.0 - 50.0 mmHg pO2, Venous 29 (L) 30 - 50 mmHg Base, Excess 2.0 0.0 - 2.0 mmol/L HCO3, Venous 28.7 (H) 20.0 - 24.0 mmol/L %O2 Saturation, Venous 50.0 % Romero's test N/A Sample site N/A Insp. O2 conc. 21 % Source Of Oxygen Room Air Electrolyte panel Collection Time: 06/21/25 1:14 PM Result Value Ref Range SODIUM 127 (L) 134 - 146 mmol/L POTASSIUM 4.4 3.5 - 5.0 mmol/L CHLORIDE 93 (L) 98 - 109 mmol/L CARBON DIOXIDE 25 22 - 32 mmol/L ANION GAP 9 5 - 15 mmol/L Microbiology Results No results found for the last [address] brain without contrast Result Date: 06/21/2025 Examination: Noncontrast brain CT Date of Exam:06/21/2025 Clinical History:Confusion Comparison:06/17/2025 Procedure: Multi-detector CT performed through the brain without IV contrast. Automatic exposure control (AEC) was utilized. Findings: There is no intracranial hemorrhage, extra-axial fluid collection, mass effect, or hydrocephalus. Best-white matter differentiation is appropriate. Infarcts may be occult on CT, but grossly no acute infarct identified There is no midline shift. IMPRESSION: 1. No acute findings. 2. See MRI brain dated 06/18/2025. All CT scans at this facility use dose modulation, iterative reconstruction, and/or weight based dosing when appropriate to reduce radiation dose to as low as reasonably achievable. Finalized by Esau Restrepo MD on 06/21/2025 10:56 AM All available laboratory, imaging, and microbiology data has been personally reviewed in detail, and accessible in full per EMR. Medications: levothyroxine, 25 mcg, oral, Daily lidocaine, 1 patch, transdermal, Daily midodrine, 5 mg, oral, TID pantoprazole, 40 mg, oral, Daily rosuvastatin, 5 mg, oral, Nightly sodium chloride, 1,000 mg, oral, 3x daily around food urea, 15 g, oral, BID warfarin, 2.5 mg, oral, Once per day on Tuesday warfarin, 5 mg, oral, Once per day on Tuesday Infusion: heparin, 300-3,500 Units/hr, Last Rate: 1,050 Units/hr (06/21/25 1326) PRN medications: acetaminophen OR acetaminophen calcium gluconate OR calcium gluconate OR calcium gluconate dextrose dextrose 50 % in water (D50W) glucagon (human recombinant) heparin (porcine) hydrALAZINE labetalol magnesium sulfate OR magnesium sulfate potassium chloride OR potassium chloride potassium chloride in water OR potassium chloride in water sodium phosphate IV OR sodium phosphate IV - central line OR sod phos di, mono-K phos mono sodium chloride Current care plan discussed in detail with the pt and verbalized understanding. Further management will follow based on the clinical course of the patient and results of ongoing evaluation Electronically signed by: ERIKA CRISOSTOMO MD 06/21/2025 Disclaimer Note: To increase efficiency, your provider may have prepared this document using voice recognition technology. In that case, if a word or phrase is confusing, or does not make sense, this is likely due to a recognition error within the program which was not discovered during the provider s review. If you believe an error has occurred, please notify your provider s office at your earliest convenience, so we can correct any mistakes. Images from the original note were not included. Nephrology Daily Progress Note The events of last night reviewed, chart and all new entries , new tests reviewed Impression/Plan: Acute CVA with right-sided weakness, CT angiogram revealed right P1/ P2 occlusion, he received TNK, patient is confused Chronic hyponatremia due to SIADH, the patient was on salt tablets dysuria at home which were restarted, sodium is improving, urine osmolality 565, urine sodium was 64 and urine creatinine , thyroid function was unremarkable, uric acid 4.4 Atrial fibrillation, on anticoagulation Hypotension, I will start midodrine since he had an episode of loss of consciousness Interval history, patient had episode of loss of consciousness today, CT of the brain did not reveal any acute changes, currently confused Vital signs in last 24 hours: Vitals: 06/21/25 0800 06/21/25 0856 06/21/25 0900 06/21/25 1230 BP: 92/46 100/73 98/65 Pulse: 70 Resp: 19 Temp: 36.4 C (97.6 F) TempSrc: Oral SpO2: 95% Weight: Height: Intake/Output: Intake/Output Summary (Last 24 hours) at 06/21/2025 1306 Last data filed at 06/21/2025 1100 Gross per 24 hour Intake 620 ml Output 200 ml Net 420 ml Physical Exam: General appearance: alert in no acute distress. Head: Normocephalic, without obvious abnormality, atraumatic Eyes: Conjunctivae unremarkable, pupils reactive Neck: No JVD, no carotid bruit, neck supple, trachea midline cardiovascular: normal S1-S2, No gallops. Respiratory: clear to auscultation B/L, Gastrointestinal: no tenderness, no guarding, no hepatosplenomegaly could be appreciated. Muscloskeletal: No LE edema, no active arthritis, normal range of movement Neurology: Moves all extremities, alert confused Skin: no rash, no petechia Psychiatric, can not be assessed Lymphatic: no lymphadenopathy, no lymphedema Inpatient Meds: atenoloL, 12.5 mg, oral, Daily gabapentin, 300 mg, oral, Daily levothyroxine, 25 mcg, oral, Daily lidocaine, 1 patch, transdermal, Daily pantoprazole, 40 mg, oral, Daily rosuvastatin, 5 mg, oral, Nightly sodium chloride, 1,000 mg, oral, 3x daily around food urea, 15 g, oral, BID warfarin, 2.5 mg, oral, Once per day on Tuesday warfarin, 5 mg, oral, Once per day on Tuesday heparin, 300-3,500 Units/hr, Last Rate: Stopped (06/21/25 0935) Nutrition: Dietary Orders (From admission, onward) Start Ordered 06/20/25 1319 Adult diet Regular Texture; Fluid Restriction 1800 mL Diet effective now Question Answer Comment Diet Type: Regular Texture Fluid Restrictions: Fluid Restriction 1800 mL 06/20/25 1318 Labs: Results from last 7 days Lab Units 06/21/25 0758 06/21/25 0013 06/20/25 1806 06/20/25 1238 06/20/25 0844 06/19/25 1927 06/19/25 0718 06/18/25 1528 06/18/25 0343 06/17/25 1653 SODIUM mmol/L 127* 124* 122* 122* 124* < > 123* -- 127* 127* POTASSIUM mmol/L 4.5 4.6 4.8 4.6 4.3 < > 4.3 -- 4.3 4.5 CHLORIDE mmol/L 93* 90* 90* 90* 89* < > 88* -- 93* 93* CO2 mmol/L 25 25 24 24 27 < > 26 -- 24 26 BUN mg/dL 25 -- -- -- 12 -- -- 10 10 CREATININE mg/dL 0.72 -- -- -- 0.73 -- 0.73 -- 0.71 0.75 CALCIUM mg/dL 9.0 -- -- -- 9.0 -- 8.8 -- 9.1 9.2 MAGNESIUM mg/dL -- -- -- -- -- -- 2.3 1.6* -- 1.7* PHOSPHORUS mg/dL -- -- -- -- -- -- -- -- -- 3.3 < > = values in this interval not displayed. Results from last 7 days Lab Units 06/21/25 0758 06/20/25 0844 06/19/25 0718 WBC x10E9/L 5.3 6.5 7.9 HEMOGLOBIN g/dL 14.1 13.3 13.4 HEMATOCRIT % 40.7 38.1* 38.7* PLATELETS X10E9/L 189 204 200 Results from last 7 days Lab Units 06/19/25 0718 06/18/25 1528 06/17/25 1653 MAGNESIUM mg/dL 2.3 1.6* 1.7* Lab Results Component Value Date CALCIUM 9.0 06/21/2025 No results found for: IRON , TIBC , FERRITIN Problem list Acute CVA with right-sided weakness, CT angiogram revealed right P1/ P2 occlusion, he received TNK, patient is confused Chronic hyponatremia due to SIADH, the patient was on salt tablets dysuria at home which were restarted, sodium is improving, urine osmolality 565, urine sodium was 64 and urine creatinine , thyroid function was unremarkable, uric acid 4.4 Diabetes mellitus type 2 Atrial fibrillation on chronic anticoagulation Dyslipidemia Chronic hyponatremia Hypothyroidism Benign prostatic hypertrophy Nasal bone fracture Cervical disc disease Carpal tunnel release ANY QUESTIONS FEEL FREE TO CALL: 1. OFFICE [phone] 2. ANSWERING SERVICE:[phone] YOU CAN CONTACT ME THROUGH [employer] DURING THE DAYTIME HOURS, IF NO RESPONSE AFTER 5 MINUTES CALL THE ANSWERING SERVICE This note was created with the assistance of a speech-recognition program. Although the intention is to generate a document that actually reflects the content of the visit, no guarantees can be provided that every mistake has been identified and corrected by editing. Pharmacokinetic Consult - Follow Up Warfarin Dosing Dariel Zabala is a 85 y.o. male for whom pharmacy has been consulted for warfarin dosing and monitoring. Subjective Indication: A-Fib Goal INR: 2-3 Home Regimen: 5 mg MWF and 2.5 mg all other days per clinic note from 06/05 Current Hematologic Labs Results from last 7 days Lab Units 06/21/25 0758 06/20/25 0844 06/18/25 1528 06/18/25 1101 INR 1.6* 1.3* 1.1 1.1 Warfarin Administrations (last 168 hours) Date/Time Action Medication Dose 06/20/25 1705 Given warfarin (COUMADIN) tablet 2.5 mg 2.5 mg 06/19/25 1753 Given warfarin (COUMADIN) tablet 5 mg 5 mg Indication: A-Fib Goal INR: 2-3 Home Regimen: 5 mg MWF and 2.5 mg all other days per clinic note from 06/05 Assessment Current INR: 1.6 today from 1.3 yesterday after resuming the patient's home regimen Drug-drug Interactions: - Increases bleeding risk --- Patient reportedly received TNK prior to arrival to [facility], heparin infusion bridge Drug-disease Interactions: - Could increase warfarin sensitivity (especially during exacerbations) --- DM2, age Pertinent Information - Hgb - 14.1 g/dL compared to 13.3 g/dL yesterday Plan - INR is trending towards goal range. I will continue with the patient's home regimen, and I will specifically give warfarin 5 mg today Pharmacist will continue to follow patient's clinical progress daily. Vinh Andre PharmD, [facility] [id number] Physical Medicine and Rehabilitation Daily Progress Note Today's Date and Time: 06/21/2025, 7:53 AM Subjective/Chief complaint[place] [place] Problem: [place]A (cerebral vascular accident) ([facility]) SUBJECTIVE Resting in bed, no new complaints, confused Brief HPI 85-year-old male with history of AFib on Coumadin, diabetes mellitus presented to the hospital 2nd to right-sided weakness. MRI was negative. Review of Systems : Respiratory: denies wheezes or SOB Cardiovascular: denies Chest pain, pressure, palpitations Gastrointestinal: denies abdominal pain, diarrhea, constipation of changes in BM Genitourinary, denies burning during urination, urgency, or increased frequency Neurological: denies dizziness and light-headedness. Physical Examination: Vital signs in last 24 hours: Temp: [36.3 C (97.3 F)-36.7 C (98 F)] 36.4 C (97.5 F) Pulse: [67-81] 81 Resp: [14] 14 BP: (128-146)/(63-92) 128/92 SpO2: [94 %-99 %] 99 % O2 Device: None (Room air) O2 Flow Rate (L/min): [0 L/min] 0 L/min Intake/Output last 3 shifts: I/O last 3 completed shifts: In: 200 [P.O.:200] Out: 200 [Urine:200] Intake/Output this shift: No intake/output data recorded. General Appearance: No distress Head: Normocephalic, without obvious abnormality, atraumatic Eyes: conjunctivae/corneas clear. PERRL, EOM's intact. Fundi benign. ENT: ENT exam normal, no neck nodes or sinus tenderness and neck without nodes Neck: no adenopathy, no carotid bruit, no JVD, supple, symmetrical, trachea midline, and thyroid not enlarged, symmetric, no tenderness/mass/nodules Lungs: clear to auscultation bilaterally Heart: regular rate and rhythm, S1, S2 normal, no murmur, click, rub or gallop Abdomen: soft, non-tender; bowel sounds normal; no masses, no organomegaly Extremities: extremities normal, atraumatic, no cyanosis or edema Skin: Skin color, texture, turgor normal. No rashes or lesions Neurologic: Right-sided weakness Laboratory data: I have reviewed the following labs: CBC with Differential:@CBC with Differential: Lab Results Component Value Date WBC 6.5 06/20/2025 HGB 13.3 06/20/2025 HCT 38.1 (L) 06/20/2025 PLT 204 06/20/2025 MCV 90 06/20/2025 MCH 31.3 06/20/2025 MCHC 34.9 06/20/2025 RDW 13.8 06/20/2025 [ BMP: Lab Results Component Value Date GLU 98 06/20/2025 CALCIUM 9.0 06/20/2025 K 4.6 06/21/2025 CO2 25 06/21/2025 CL 90 (L) 06/21/2025 BUN 12 06/20/2025 CREATININE 0.73 06/20/2025 Hepatic Function Panel: No results found for: ALB , PROT , TBIL @LABRCNT(VANCOTROUGH:3)@ No results found for: CRP No results found for: SEDRATE All Labs reviewed Imaging Studies: All radiological studies reviewed Medications: atenoloL, 12.5 mg, oral, Daily gabapentin, 300 mg, oral, Daily levothyroxine, 25 mcg, oral, Daily lidocaine, 1 patch, transdermal, Daily pantoprazole, 40 mg, oral, Daily rosuvastatin, 5 mg, oral, Nightly sodium chloride, 1,000 mg, oral, 3x daily around food urea, 15 g, oral, BID warfarin, 2.5 mg, oral, Once per day on Tuesday warfarin, 5 mg, oral, Once per day on Tuesday All Medications reviewed Impression : Patient Active Problem List Diagnosis CVA (cerebral vascular accident) ([facility]) Encephalopathy Recommendations/Plan: Continue PT, OT Max assist x2 bed mobility Family education Coumadin for AFib Consider intermediate facility Will follow up with you for rehab needs Myrtle Jacome MD Pharmacokinetic Consult - Follow Up Warfarin Dosing Dariel Zabala is a 85 y.o. male for whom pharmacy has been consulted for warfarin dosing and monitoring. Subjective Anticoag Therapy Indication: Cardiac dysrhythmia Target INR: 2 - 3 Current inpatient warfarin regimen: 5 mg MWF, 2.5 mg all other days Current Hematologic Labs Results from last 7 days Lab Units 06/20/25 0844 06/18/25 1528 06/18/25 1101 INR 1.3* 1.1 1.1 Warfarin Administrations (last 168 hours) Date/Time Action Medication Dose 06/19/25 1753 Given warfarin (COUMADIN) tablet 5 mg 5 mg Assessment INR currently: subtherapeutic Drug-drug interactions: levothyroxine Drug-disease state interactions: age. Other pertinent information: resumed home dose, continue to bridge with heparin drip. Plan RX Anticoag Warfarin IP dose plan: Continue current warfarin regimen, give warfarin 2.5 mg today. Pharmacist will continue to follow patient's clinical progress daily. Noreen Myers RPH Ext [phone] Images from the original note were not included. FOLLOW-UP: Post-Intensive Care Rounding Note Patient: Dariel Zabala : 1940 Age: 85 y.o. Length of Stay: 2 days Admission Diagnosis: CVA (cerebral vascular accident) ([facility]) [I63.9] Reviewing patient due to his recent transfer out from Intensive Care. Recorded vital signs are stable and the patient is not noted to be in any apparent distress. Telemetry and monitoring noted. Staff may call with any issues or concerns regarding his clinical presentation or stability. Thank you, Pat Araiza RN Rapid Response: [facility] Pharmacokinetic Consult - Anticoagulation Dosing Dariel Zabala is a 85 y.o. male for whom pharmacy has been consulted for warfarin dosing and monitoring. Indication for treatment: afib Current Hematologic Labs Lab Results Component Value Date INR 1.1 06/18/2025 INR 1.1 06/18/2025 Lab Results Component Value Date ALT 11 06/17/2025 Warfarin Administrations (last 168 hours) None Assessment Admitted for stroke. History of a-fib. INR 1.1 on admission. Home regimen 5mg MWF and 2.5mg all other days Plan Re-start home regimen. Will continue to follow patient's clinical progress daily. RAHAT MALLORY RPH Images from the original note were not included. FOLLOW-UP: Post-Intensive Care Rounding Note Patient: Dariel Zabala DOB: 1940 Age: 85 y.o. Length of Stay: 2 days Admission Diagnosis: CVA (cerebral vascular accident) ([facility]) [I63.9] Reviewing patient due to his recent transfer out from Intensive Care. Recorded vital signs are stable and the patient is not noted to be in any apparent distress. Telemetry and monitoring noted. Staff may call with any issues or concerns regarding his clinical presentation or stability. Thank you, JOSSELYN LARA RN Rapid Response: [facility] Images from the original note were not included. FOLLOW-UP: Post-Intensive Care Rounding Note Patient: Dariel Zabala DOB: 1940 Age: 85 y.o. Length of Stay: 1 days Admission Diagnosis: CVA (cerebral vascular accident) ([facility]) [I63.9] Reviewing patient due to his recent transfer out from Intensive Care. Recorded vital signs are stable and the patient is not noted to be in any apparent distress. Telemetry and monitoring noted. Staff may call with any issues or concerns regarding his clinical presentation or stability. Thank you, Pat Araiza RN Rapid Response: [facility] documented in this encounter [facility] 06-23-2025 Plan of care note Problem: Pain Goal: Patient goal is pain score less than 4, able to rest, and participant in treatment plan as appropriate Description: INTERVENTIONS: 1. Encourage patient or legal personal banking representative to report early pain and ask for pain medicine when needed 2. Assess pain using appropriate pain scale and include the scale used when documenting 3. Administer analgesics based on type and severity of pain and evaluate response within appropriate time frame 4. Implement non-pharmacological measures as appropriate and evaluate response 5. Consider cultural and social influences on pain and pain management 6. Notify LIP if interventions ineffective or patient reports new pain 7. Monitor vital signs including pulse ox, end-tidal CO2 based on pain intervention 8. Reassess pain per policy 9. Teach patient or legal personal banking representative interventions for comforting 06/23/2025 0628 by ERIN Mcmanus Outcome: Progressing Note: Evaluation of progress towards goal: 06/23/2025 0618 by ERIN Mcmanus Outcome: Progressing Note: Evaluation of progress towards goal: no complaints of pain this shift; continue to monitor and reassess Problem: Safety Goal: Patient will be injury free during hospitalization Description: INTERVENTIONS: 1. Assess patient's risk for falls and implement fall prevention plan of care per policy 2. Provide and maintain a safe environment 3. Proper use of double Identifiers 4. Medication administration using the 5 rights 5. Hand hygiene 6. Specimens are labeled at the bedside 7. Instruct patient/ patient personal banking representative about use of safety devices 8. Include patient/ patient personal banking representative in decisions related to safety Outcome: Progressing Note: Evaluation of progress towards goal: Safety measures maintained Problem: Infection Goal: Absence of infection during hospitalization Description: INTERVENTIONS 1. Assess and monitor for signs and symptoms of infection. 2. Monitor lab/diagnostic results. 3. Monitor all insertion sites i.e., indwelling lines, tubes and drains. 4. Monitor endotracheal (as able) and nasal secretions for changes in amount and color. 5. Administer medications as ordered. 6. Instruct and encourage patient and family to use good hand hygiene technique. 7. Identify and instruct patient/patient personal banking representative in use of appropriate isolation precautions for identified infection/symptoms. 8. Provide and discuss with patient/patient personal banking representative on educational MDRO sheet. 9. Encourage and monitor nutritional status daily and consult water commissioner if indicated. 10. Implement neutropenic guidelines as needed. Outcome: Progressing Note: Evaluation of progress towards goal: Standard precaution maintained Problem: Knowledge Deficit Goal: Patient/patient personal banking representative demonstrates understanding of disease process, treatment plan, medications, and discharge instructions Description: INTERVENTIONS 1. Complete learning assessment and assess knowledge base 2. Provide teaching at level of understanding 3. Provide teaching via preferred learning method(s) Outcome: Progressing Note: Evaluation of progress towards goal: Problem: Discharge Planning Goal: Discharge to post-acute care, other facility, or home with appropriate resources Description: Patient's goal is: INTERVENTIONS 1. Conduct assessment to determine patient/family and health care team treatment goals, and need for post-acute services based on payer coverage, community resources, and patient preferences, and barriers to discharge 2. Coordinate with Social work, Care Navigation, and Utilization Review to arrange appropriate level of services according to patient's needs based on patient preference and payer coverage in collaboration with the physician and health care team 3. Address psychosocial, clinical, and financial barriers to discharge as identified in assessment in conjunction with the patient/family and health care team 4. Consult appropriate ancillary services (i.e.. PT/OT/ST, etc) as needed 5. Communicate with and update the patient/family, physician, and health care team regarding progress on the discharge plan 6. Identify discharge learning needs (meds, wound care, etc). 7. Arrange for needed discharge transportation as appropriate Outcome: Progressing Note: Evaluation of progress towards goal: in progress Problem: Potential for Compromised Skin Integrity Goal: Skin integrity is maintained or improved Description: Patient's goal is: INTERVENTIONS 1. Perform initial skin assessment on admission and as needed 2. Turn patient every 2 hours and PRN 3. Relieve pressure to bony prominences 4. Avoid shearing 5. Keep skin clean and dry 6. Alternate a full bath with partial baths for elderly 7. Apply lotion/moisturizer on skin 8. Monitor patient's hygiene practices 9. Float heels 10. Collaborate with interdisciplinary team and initiate plans and interventions as needed Outcome: Progressing Note: Evaluation of progress towards goal: skin intact and dry Goal: Patient's nutritional intake is adequate Description: Patient's goal is: INTERVENTIONS 1. Assess and monitor food intake and supplements, patient food preferences, nausea, vomiting, labs, oral cavity (gums, teeth, tongue, mucosa), proper denture fit, and cultural beliefs 2. Monitor for signs of hypoglycemia and hyperglycemia 3. Collaborate with interdisciplinary team and initiate plan and interventions as ordered 4. Monitor patient's weight 5. Assist patient with meals/food selection 6. Assist patient with eating 7. Allow adequate time for meals 8. Provide pleasant environment during mealtime 9. Increase social contact during mealtimes 10. Plan activities to conserve energy 11. Encourage/perform oral hygiene as appropriate 12. Encourage patient to take dietary supplement as ordered 13. Collaborate with clinical water commissioner 14. Include patient/ patient's personal banking representative in decisions related to nutrition Outcome: Progressing Note: Evaluation of progress towards goal: adequate with 1800 fluid restriction Problem: Urinary Incontinence Goal: Perineal skin integrity is maintained or improved Description: INTERVENTIONS 1. Assess genitourinary system, perineal skin, labs (urinalysis), and history of incontinence to include past management, aggravating, and alleviating factors 2. Keep skin clean and dry 3. Apply skin protectant 4. Develop skin care regimen 5. Provide privacy when changing patients incontinence device to maintain their dignity 6. Consider placing an indwelling catheter 7. Collaborate with interdisciplinary team and initiate plans and interventions as needed Outcome: Progressing Note: Evaluation of progress towards goal: able to verbalize urgency and uses urinal Problem: Neurological Deficit Goal: Neurological status is stable or improving Description: Patient's goal is: INTERVENTIONS 1. Complete Neurological assessment as indicated/ordered 2. Initiate measures to prevent increased intracranial pressure 3. Monitor and assess patient's level of consciousness, motor function, sensory function, and level of assistance needed for ADLs 4. Monitor and report changes from baseline 5. Maintain blood pressure and fluid volume within ordered parameters to optimize cerebral perfusion and minimize risk of hemorrhage 6. Monitor labs and diagnostic tests 7. Administer anti-seizure medications as ordered 8. Maintain airway, patient safety and administer oxygen as ordered 9. Monitor patient for seizure activity, document and report duration and description of seizure to LIP 10. If seizure occurs, turn patient to side and suction secretions as needed 11. Reorient patient post seizure 12. Seizure pads on all 4 side rails 13. Instruct patient/family to notify RN of any seizure activity 14. Instruct patient/family to call for assistance with activity based on assessment 15. Utilize bleeding precautions if thrombolytic given Outcome: Progressing Note: Evaluation of progress towards goal: Problem: Activity Intolerance/Impaired Mobility Goal: Mobility/activity is maintained at optimum level for patient Description: Patient's goal is: INTERVENTIONS 1. Assess and monitor patient barriers to mobility and need for assistive/adaptive devices 2. Assess patient's emotional response to limitations 3. Collaborate with interdisciplinary teams and initiate plans and interventions as ordered 4. Encourage independent activity per tolerance 5. Maintain proper body alignment 6. Perform active/passive ROM as tolerated/ordered 7. Coordinate activities to conserve energy 8. Reposition patient 9. Ensure adequate rest/sleep time Outcome: Progressing Note: Evaluation of progress towards goal: working with pt/ot to gain stability and strength Problem: Communication Impairment Goal: Ability to express needs and understand communication Description: INTERVENTIONS 1. Assess patient's communication skills and ability to understand information 2. Provide alternate method of communication if needed i.e. ipad, sign board, pen/paper 3. Collaborate with Speech Therapy to develop effective communication strategies 4. Include patient/patient personal banking representative in decisions related to communication Outcome: Progressing Note: Evaluation of progress towards goal: able to communicate wants Problem: Potential for Aspiration Goal: Patient's risk of aspiration is minimized Description: INTERVENTIONS 1. Assess and monitor vital signs, respiratory status, and labs (WBC) 2. Monitor for signs of aspiration (tachypnea, cough, rales, wheezing, cyanosis, fever) 3. Assess and monitor patient's ability to swallow 4. Place patient up in chair to eat if possible 5. Elevate head of bed 90 degrees to eat if unable to get patient up into chair 6. Supervise patient during oral intake 7. Instruct patient to take small bites 8. Instruct patient to take small single sips when taking liquids 9. Follow patient-specific strategies generated by speech pathologist 10. Complete bedside swallow screen if appropriate and take actions as indicated. 11. Administer prescribed medications and monitor effects Outcome: Progressing Note: Evaluation of progress towards goal: Problem: Anxiety Goal: Anxiety is at manageable level Description: Patient's goal is: INTERVENTIONS 1. Assess and monitor patient's anxiety level 2. Monitor for signs and symptoms of anxiety both physical and emotional (heart palpitations, chest pain, shortness of breath, headaches, nausea, feeling jumpy, restlessness, irritable, apprehensive) 3. Reorient/orient patient to unit/surroundings 4. Explain treatment plan 5. Explain tests/procedures prior to initiation 6. Encourage participation in care 7. Encourage verbalization of concerns/fears 8. Assess coping mechanisms 9. Assist in developing anxiety-reducing skills 10. Administer complimentary therapies 11. Manage patient's environment 12. Limit or eliminate stimulants such as caffeine and nicotine 13. Collaborate with ancillary departments 14. Include patient/patient personal banking representative in decisions related to anxiety Outcome: Progressing Note: Evaluation of progress towards goal: no s/s of anxiety Problem: Inadequate Coping Goal: Demonstrates and verbalizes ability to cope effectively Description: Patient's goal is: INTERVENTIONS 1. Patient is able to verbalize feelings related to emotional state 2. Encourage verbalization of feelings, perceptions, fears, stressors, loss of loved ones 3. Encourage verbalization of problems out of their control 4. Encourage participation in care and self management 5. Inform patient of all treatment/care prior to providing care 6. Collaborate with pastoral/spiritual care, social scientist, mental health counselor as needed. 7. Instruct patient on diversional activities such as physical activity, distraction, and deep breathing exercises to assist with coping 8. Involve patient's personal banking representative in care Outcome: Progressing Note: Evaluation of progress towards goal: Problem: Potential for Inadequate Tissue Perfusion - Venous Goal: Tissue perfusion is adequate - venous Description: Patient's goal is: INTERVENTIONS 1. Assess and monitor skin color and temperature, skin integrity, pulses, capillary refill, edema, pain in extremities and Homans' sign 2. Monitor for signs and symptoms (dyspnea, tachypnea, and tachycardia) 3. Encourage ambulation/activity per patient's tolerance and physician order 4. Elevate feet when in chair 5. Encourage patient to do ankle pump exercises 6. Apply anti-embolism stockings/devices as ordered Outcome: Progressing Note: Evaluation of progress towards goal: Problem: Self Care Deficit Goal: Return ADL status to a safe level of function Description: Patient's goal is: INTERVENTIONS 1. Administer medication as ordered 2. Assess ADL deficits and provide assistive devices as needed 3. Obtain PT/OT consults as needed 4. Assist and instruct patient to increase activity and self care as tolerated Outcome: Progressing Note: Evaluation of progress towards goal: pt working with py/ot Problem: Moderate - High Risk Fall Score Description: Valenzuela Fall Score of =/> 25 or indicated by [facility] Assessment Goal: Patient should be free from fall Description: Interventions: 1. [place] to environment 2. Hourly rounds addressing the 4 P's (Pain, Positioning, Possessions, Potty) 3. Clear area of hazards (spills, clutter, electrical cords, unnecessary equipment) 4. Place equipment (bed & TV controls, call light, phone, urinal) within reach 5. Encourage patient to wear glasses and hearing aides as appropriate 6. Maintain bed in lowest position 7. Lock wheels on bed/wheelchair 8. Provide adequate lighting, including night light 9. Assess need for additional bedding, food/fluids, pain med's prior to sleep/routinely 10. Provide gripper slippers or personal non-skid footwear 11. Teach patient and patient personal banking representative to maintain environment for safety and engage in all aspects of fall prevention program 12. Remind patient to call for help before getting out of bed 13. Initiate bed/chair/exit alarms supportive devices as appropriate, (chair wedge, no-skid floor mat, raised edge mattress, hip protectors) 14. Locate patient bed assignment for optimal visualization 15. Evaluate and identify Safe Patient Handling Equipment needs 16. Provide supervision when out of bed or chair 17. Utilize gait belt as needed to assist with ambulation 18. Place adaptive equipment (cane, walker) within reach 19. Request patient personal banking representative bring adaptive equipment/mobility aids from home or obtain and provide as needed 20. Consult pharmacy regarding effects of med's affecting mobility, cognition, and alternatives 21. Obtain physician order for PT if risk factors associated with mobility are present 22. Obtain physician order for OT as appropriate 23. Utilize diversional activities 24. Educate patient and patient personal banking representative how to maintain a safe environment during visitation times (notify nurse prior to leaving bedside) 25. Consider appropriateness of medical or non-biomedical electronics technician 26. Set up voiding schedule as appropriate (every 2 hours) Outcome: Progressing Note: Evaluation of progress towards goal: Fall bundles maintained [facility] 06-22-2025 Consult note Associated Order (s): IP CONSULT TO CARDIOLOGY Images from the original note were not included. [facility] [address] [place] [address] HISTORY & PHYSICAL / CONSULT NOTE Dariel Zabala PCP: TANYA Lozano Date of Admission: 06/17/2025 Date of Consultation: 06/22/2025 4:05 PM Consult for atrial fibrillation, bradycardia, intermittent pauses SUBJECTIVE History of Present Illness: Dariel Zabala is a 85 y.o. male w/ PMH RUFINO s/p R CEA, DMII, HLD, hypothyroidism, HTN, SIADH, recent TIA 05/2025, and permanent atrial fibrillation w/ [id number] on warfarin who presented 06/17/25 with RLE weakness and aphasia. He received TNK at OSH for R P1/P2 occlusion and subsequently transferred to [facility]. Head imaging w/o acute infarct, but did demonstrate chronic small vessel ischemic changes and possible L parietal subacute vs chronic infarct (small). Cardiology consulted for management of atrial fibrillation. TTE 06/19/25 w/ new depresssed EF 40-45%, no significant valvulopathies. He has been started on a heparin gtt as bridge to therapeutic INR w/ warfarin. Notably his presenting INR was subtherapeutic. He has been diagnosed with atrial fibrillation since at least 2013 and has been left in rate control with atenolol 12.5 mg qday. He has undergone neurological evaluation w/ EEG due to altered mental status attributed to his hyponatremia. He apparently also had a possible syncopal event 06/21/25 in the morning while he was going to the bathroom. He has been started on midodrine for hypotension. Primary service notes document resumption of atenolol, though unclear why given he is also on midodrine 5 mg TID. In speaking with the patient, he appeared quite confused today, I was notified that he was hard of hearing but despite this, he did not understand or was able to respond appropriately. Telemetry reviewed, no evidence of significant bradycardia, appears mostly rate controlled, no pauses greater than 5 seconds. He did have some rapid ventricular response which he was likely in the setting of activity given artifact with the strips. He was apparently given 1 dose of atenolol 12.5 mg but because of bradycardia , this was subsequently discontinued. Previous Medical History: Past Medical History: Diagnosis Date Atrial [place] BPH (benign prostatic hyperplasia) Broken nose CVA (cerebral vascular accident) [place] 06/17/2025 Diabetes [place] Epistaxis Hypertension Hyponatremia secondary to SIADH Hypothyroid Lumbar spondylosis TIA (transient ischemic attack) Previous Surgical History: Past Surgical History: Procedure Laterality Date NECK SURGERY plate in neck per Allergies: No Known Allergies Hospital Meds: Current Facility-Administered Medications Medication Dose Route Frequency Provider Last Rate Last Admin acetaminophen (TYLENOL) tablet 650 mg 650 mg oral Q6H PRN Kendell Bender MD Or acetaminophen (TYLENOL EXTRA STRENGTH) tablet 1,000 mg 1,000 mg oral Q6H PRN Kendell Bender MD 1,000 mg at 06/22/25 0141 calcium gluconate 3,000 mg in sodium chloride 0.9 % 100 mL IVPB 3,000 mg intravenous PRN Toy Baez MD calcium gluconate 4,000 mg in sodium chloride 0.9 % 250 mL IVPB 4,000 mg intravenous PRN Toy Baez MD calcium gluconate IVPB 2000 mg/100 mL (20 mg/mL premix) 2,000 mg intravenous PRN Toy Baez MD dextrose (GLUTOSE) 40 % gel 15 g 15 g oral PRN Rocio Davis MD dextrose 50 % in water (D50W) 50% solution 25 mL 25 mL intravenous PRN Rocio Davis MD glucagon HCL injection 1 mg 1 mg intramuscular PRN Rocio Davis MD glucagon HCL injection 1 mg 1 mg intramuscular Once Erika Crisostomo MD heparin (porcine) injection 2,000 Units 2,000 Units intravenous PRN Rocio Davis MD heparin infusion 03925 units/500 mL in 0.45% NaCl (50 units/mL premix) 300-3,500 Units/hr intravenous Continuous Rocio Davis MD 21 mL/hr at 06/21/25 1326 1,050 Units/hr at 06/21/25 1326 hydrALAZINE (APRESOLINE) injection 10 mg 10 mg intravenous Q6H PRN Rocio Davis MD labetaloL (NORMODYNE,TRANDATE) injection 20 mg 20 mg intravenous Q10 Min PRTru Davis MD levothyroxine (SYNTHROID, LEVOTHROID) tablet 25 mcg 25 mcg oral Daily Kendell Bender MD 25 mcg at 06/22/25 0649 lidocaine (LIDODERM) 5 % 1 patch 1 patch transdermal Daily Kendell Bender MD 1 patch at 06/22/25 0831 magnesium sulfate IVPB 2000 mg/50 mL in iso-osmotic water (40 mg/mL premix) 2,000 mg intravenous ASHLEY Davis MD Or magnesium sulfate IVPB 4000 mg/100 mL in iso-osmotic water (40 mg/mL premix) 4,000 mg intravenous PRTru Davis MD Stopped at 06/19/25 0217 midodrine (PROAMATINE) tablet 5 mg 5 mg oral TID Toy Baez MD 5 mg at 06/22/25 1327 pantoprazole (PROTONIX) EC tablet 40 mg 40 mg oral Daily Kendell Bender MD 40 mg at 06/22/25 0649 potassium chloride (K-TAB,KLOR-CON) CR tablet 20-60 mEq 20-60 mEq oral PRN Toy Baez MD Or potassium chloride (KAYCIEL) 20 mEq/15 mL solution 20-60 mEq 20-60 mEq oral PRN Toy Baez MD Or potassium chloride IVPB 10 mEq/100 mL in water (0.1 mEq/mL premix) 10 mEq intravenous PRN Toy Baez MD rosuvastatin (CRESTOR) tablet 5 mg 5 mg oral Nightly Rocio Davis MD 5 mg at 06/21/25 203 sodium phosphate 20 mmol in sodium chloride 0.9 % 250 mL IVPB 20 mmol intravenous PRN Toy Baez MD Or sodium phosphate 20 mmol in sodium chloride 0.9 % 100 mL IVPB 20 mmol intravenous PRN Toy Baez MD Or sod phos di, mono-K phos mono (K-PHOS NEUTRAL) 250 mg tablet 2 tablet 2 tablet oral PRN Toy Baez MD sodium chloride 0.9 % flush 10 mL 10 mL intravenous PRN Mirian Carranza MD 10 mL at 06/22/25 0831 sodium chloride tablet 1,000 mg 1,000 mg oral 3x daily around food Maisha Vergara MD 1,000 mg at 06/22/25 1208 urea (URE-NA) packet 15 g 15 g oral BID Maisha Vergara MD 15 g at 06/22/25 0831 warfarin (COUMADIN) tablet 2.5 mg 2.5 mg oral Once per day on Tuesday Rocio Davis MD 2.5 mg at 06/20/25 1705 warfarin (COUMADIN) tablet 5 mg 5 mg oral Once per day on Tuesday Rocio Davis MD 5 mg at 06/21/25 1549 Home Meds: Prior to Admission medications Medication Sig Start Date End Date Taking? Authorizing Provider aspirin 81 mg Take 1 tablet (81 mg total) by mouth in the morning. Yes Not In System Ref Prov atenoloL (TENORMIN) 25 mg tablet Take 0.5 tablets (12.5 mg total) by mouth in the morning. 05/20/25 Yes Not In System Ref Prov coenzyme [id number] 100-5 mg-unit capsule Take 100 mg by mouth in the morning. Yes Not In System Ref Prov finasteride (PROSCAR) 5 mg tablet Take 1 tablet (5 mg total) by mouth in the morning. 01/29/25 Yes Not In System Ref Prov gabapentin (NEURONTIN) 300 mg capsule Take 1 capsule (300 mg total) by mouth in the morning. 04/25/25 Yes Not In System Ref Prov glimepiride (AMARYL) 2 mg tablet Take 1 tablet (2 mg total) by mouth every morning before breakfast. Yes Not In System Ref Prov levothyroxine (SYNTHROID, LEVOTHROID) 25 MCG tablet Take 1 tablet (25 mcg total) by mouth in the morning. 03/07/25 Yes Not In System Ref Prov omeprazole (PriLOSEC) 40 mg capsule Take 1 capsule (40 mg total) by mouth every morning before breakfast. 01/07/25 Yes Not In System Ref Prov pravastatin (PRAVACHOL) 40 mg tablet Take 1 tablet (40 mg total) by mouth in the morning. 10/04/24 Yes Not In System Ref Prov sodium chloride 1,000 mg tablet,soluble Take 1 tablet (1,000 mg total) by mouth in the morning and 1 tablet (1,000 mg total) before bedtime. 05/14/25 Yes Not In System Ref Prov tamsulosin (FLOMAX) 0.4 mg capsule Take 1 capsule (0.4 mg total) by mouth nightly. 05/07/25 Yes Not In System Ref Prov warfarin (COUMADIN) 5 mg tablet Take 0.5-1 tablets (2.5-5 mg total) by mouth in the evening. 03/27/25 Yes Not In System Ref Prov CIALIS 2.5 mg tablet Take 1 tablet (2.5 mg total) by mouth daily as needed for erectile dysfunction. Patient not taking: Reported on 06/17/2025 05/07/25 Not In System Ref Prov urea (URE-NA) 15 gram powder in packet Take 1 packet (15 g total) by mouth in the morning. Not In System Ref Prov Social History: TOBACCO: reports that he has never smoked. He has never used smokeless tobacco. ETOH: reports that he does not currently use alcohol. DRUGS: reports that he does not currently use drugs. OCCUPATION: Family History: No family history on file. Review of Systems: Constitutional: there has been no unanticipated weight loss, no change in energy level, sleep pattern, or activity level. Eyes: No visual changes or diplopia, no scleral icterus. ENT: No Headaches, hearing loss or vertigo, no mouth sores or sore throat. Cardiovascular: No chest pain, dyspnea on exertion, palpitations or loss of consciousness, no cough, hemoptysis, pleuritic pain, or phlebitis. Respiratory: No cough or wheezing, no sputum production, no hematemesis. Gastrointestinal: No abdominal pain, appetite loss, blood in stools, no change in bowel or bladder habits. Genitourinary: No dysuria, trouble voiding, or hematuria Musculoskeletal: No gait disturbance, weakness or joint complaints Integumentary: No rash or pruritis Neurological: No headache, diplopia, change in muscle strength, numbness or tingling, no change in gait, balance, coordination, mood, affect, memory, mentation, behavior Psychiatric: No anxiety, or depression Endocrine: No temperature intolerance, no excessive thirst, fluid intake, or urination, no tremor Hematologic/Lymphatic: No abnormal bruising or bleeding, blood clots or swollen lymph nodes Allergic/Immunologic: No nasal congestion or hives OBJECTIVE LAST LABS: CBC: Results from last 7 days Lab Units 06/22/25 0221 06/21/25 0758 06/20/25 0844 WBC x10E9/L 5.6 5.3 6.5 HEMOGLOBIN g/dL 12.5* 14.1 13.3 HEMATOCRIT % 36.3* 40.7 38.1* MCV fL 91 89 90 PLATELETS X10E9/L 212 189 204 BMP: Results from last 7 days Lab Units 06/22/25 0542 06/22/25 0220 06/21/25 1925 06/21/25 1314 06/21/25 0758 06/20/25 1238 06/20/25 0844 06/19/25 1927 06/19/25 0718 06/18/25 1528 06/18/25 0343 06/17/25 1653 SODIUM mmol/L 129* 127* 126* < > 127* < > 124* < > 123* -- < > 127* POTASSIUM mmol/L 4.4 4.3 4.8 < > 4.5 < > 4.3 < > 4.3 -- < > 4.5 CHLORIDE mmol/L 94* 93* 92* < > 93* < > 89* < > 88* -- < > 93* CO2 mmol/L 28 26 26 < > 25 < > 27 < > 26 -- < > 26 BUN mg/dL -- 35* -- -- 25 -- 12 -- 10 -- < > 10 CREATININE mg/dL -- 0.76 -- -- 0.72 -- 0.73 -- 0.73 -- < > 0.75 CALCIUM mg/dL -- 9.1 -- -- 9.0 -- 9.0 -- 8.8 -- < > 9.2 PHOSPHORUS mg/dL -- -- -- -- -- -- -- -- -- -- -- 3.3 MAGNESIUM mg/dL -- -- -- -- -- -- -- -- 2.3 1.6* -- 1.7* < > = values in this interval not displayed. PT/INR: Results from last 7 days Lab Units 06/22/25 0220 06/21/25 0758 06/20/25 0844 PROTIME sec 19.9* 17.7* 15.0* INR 1.8* 1.6* 1.3* APTT: MAG: Results from last 7 days Lab Units 06/19/25 0718 06/18/25 1528 06/17/25 1653 MAGNESIUM mg/dL 2.3 1.6* 1.7* D Dimer: Troponin I ProBNP Lipid Panel: Lab Results Component Value Date CHOL 150 06/18/2025 TRIG 70 06/18/2025 HDL 41 06/18/2025 Liver Panel: No results found for: TBIL , ALB HgA1C: Lab Results Component Value Date HGBA1C 5.7 (H) 06/18/2025 ABG: CV HISTORY: ECHO: Echo complete W/O contrast Result Date: 06/19/2025 Left Ventricle: Left ventricle appears normal in size. Systolic function is mildly to moderately decreased with an ejection fraction of 40-45%. See wall score diagram for wall motion abnormalities. Right Ventricle: Right ventricular size is mildly dilated. Systolic function is low normal. Mitral Valve: There is mild regurgitation. Tricuspid Valve: There is mild to moderate regurgitation. Aorta: The aortic root is mildly dilated. The ascending aorta is mildly dilated. 3.9 cm. STRESS: No results found. HOLTER: No results found. CARDIAC CATH: No results found. CAROTID: Vas carotid duplex bilateral Result Date: 06/19/2025 Right: Plaque with no significant ICA spectral Doppler or color flow disturbances; ICA 59/08 cm/sec. Antegrade vertebral artery flow. Left: Plaque with no significant ICA spectral Doppler or color flow disturbances; ICA 103/25 cm/sec. Antegrade vertebral artery flow. Conclusions: BILATERAL: Plaque without significant stenosis (<50%) of the internal carotid artery. Antegrade vertebral artery flow. Recommendations: Any questions prior to finalization, please call the reading physician during normal business hours at the phone number beside their name. CXR: No results found. PHYSICAL EXAM Admission Weight: Weight: 78 kg (171 lb 15.3 oz) I/O last 3 completed shifts: In: 1450 [P.O.:1450] Out: 550 [Urine:550] Weight change: -6.1 kg (-13 lb 7.2 oz) Wt Readings from Last 3 Encounters: 06/22/25 72.1 kg (158 lb 15.2 oz) Vitals: Vitals: 06/22/25 0500 06/22/25 0800 06/22/25 1201 06/22/25 1548 BP: 128/61 107/59 136/73 Pulse: 84 64 56 Resp: 18 16 Temp: 37.4 C (99.3 F) 36.8 C (98.2 F) TempSrc: Axillary Oral SpO2: 96% 95% 95% Weight: 72.1 kg (158 lb 15.2 oz) Height: Admit Weight Weight: 78 kg (171 lb 15.3 oz) Last 3 Weights Last 3 Weight Readings 06/20/25 0500 06/21/25 0500 06/22/25 0500 Weight: 77.9 kg (171 lb 11.8 oz) 78.2 kg (172 lb 6.4 oz) 72.1 kg (158 lb 15.2 oz) Body mass index is 22.81 kg/m . INTAKE/OUTPUT I/O last 3 completed shifts: In: 1450 [P.O.:1450] Out: 550 [Urine:550] Intake/Output Summary (Last 24 hours) at 06/22/2025 1605 Last data filed at 06/22/2025 1125 Gross per 24 hour Intake 630 ml Output 1025 ml Net -395 ml General appearance: Alert oriented and cooperative, in no acute distress Skin: Warm and dry to touch Head: Normocephalic, without obvious abnormality, atraumatic Eyes: Conjunctivae unremarkable, EOMs intact, sclera non icteric Neck: No JVD, no carotid bruit, neck supple, trachea midline Lungs: Clear to ausculation bilaterally, no use of accessory muscles. Heart:: irregularly irregular with normal S1 and S2 , no murmurs and no gallops. 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 There were no pauses greater than 5 seconds, and overall heart rates and atrial fibrillation are relatively well controlled except with activity which is tolerable. Given that he is on midodrine, I would not advocate for any AV fariba agents for rate control due to hypotensive effects. If his resting heart rates are under 110 beats per minute, this would qualify as rate control and no additional agents need to be initiated. I am concerned about his anticoagulation status, numerous labs in the past demonstrating subtherapeutic INR now with recurrent stroke/TIA. Recommend starting apixaban 5 mg b.i.d.. I will continue heparin drip until 9:00 p.m., apixaban will be started at that time, we will discontinue warfarin order. This will allow for more consistent anticoagulation in the setting of recurrent cardioembolic phenomenon. Otherwise, no additional recommendations from Cardiology perspective, we will sign off. Please call back with any additional questions. KAYE GOEL MD This note was completed using a voice senior sales compensation analyst system. Every effort was made to ensure accuracy. However, inadvertent computerized senior sales compensation analyst errors may be present. [employer] Work Phone: 06-22-2025 Consult note Associated Order (s): IP CONSULT TO CARDIOLOGY Images from the original note were not included. [facility] [address] [place] [id number] HISTORY & PHYSICAL / CONSULT NOTE Dariel Zabala PCP: Yanique Mcneill, THOMAS-AVELINA Date of Admission: 06/17/2025 Date of Consultation: 06/22/2025 4:05 PM Consult for atrial fibrillation, bradycardia, intermittent pauses SUBJECTIVE History of Present Illness: Dariel Zabala is a 85 y.o. male w/ PMH RUFINO s/p R CEA, DMII, HLD, hypothyroidism, HTN, SIADH, recent TIA 05/2025, and permanent atrial fibrillation w/ [id number] on warfarin who presented 06/17/25 with RLE weakness and aphasia. He received TNK at OSH for R P1/P2 occlusion and subsequently transferred to [facility]. Head imaging w/o acute infarct, but did demonstrate chronic small vessel ischemic changes and possible L parietal subacute vs chronic infarct (small). Cardiology consulted for management of atrial fibrillation. TTE 06/19/25 w/ new depresssed EF 40-45%, no significant valvulopathies. He has been started on a heparin gtt as bridge to therapeutic INR w/ warfarin. Notably his presenting INR was subtherapeutic. He has been diagnosed with atrial fibrillation since at least 2013 and has been left in rate control with atenolol 12.5 mg qday. He has undergone neurological evaluation w/ EEG due to altered mental status attributed to his hyponatremia. He apparently also had a possible syncopal event 06/21/25 in the morning while he was going to the bathroom. He has been started on midodrine for hypotension. Primary service notes document resumption of atenolol, though unclear why given he is also on midodrine 5 mg TID. In speaking with the patient, he appeared quite confused today, I was notified that he was hard of hearing but despite this, he did not understand or was able to respond appropriately. Telemetry reviewed, no evidence of significant bradycardia, appears mostly rate controlled, no pauses greater than 5 seconds. He did have some rapid ventricular response which he was likely in the setting of activity given artifact with the strips. He was apparently given 1 dose of atenolol 12.5 mg but because of bradycardia , this was subsequently discontinued. Previous Medical History: Past Medical History: Diagnosis [place] [place] BPH (benign prostatic hyperplasia) Broken nose [place]cerebral vascular [place] [place]17/20[place] [place] Epistaxis Hypertension Hyponatremia secondary to SIADH Hypothyroid Lumbar spondylosis TIA (transient ischemic attack) Previous Surgical History: Past Surgical History: Procedure Laterality Date NECK SURGERY plate in neck per Allergies: No Known Allergies Hospital Meds: Current Facility-Administered Medications Medication Dose Route Frequency Provider Last Rate Last Admin acetaminophen (TYLENOL) tablet 650 mg 650 mg oral Q6H PRN Kendell Bender MD Or acetaminophen (TYLENOL EXTRA STRENGTH) tablet 1,000 mg 1,000 mg oral Q6H PRN Kendell Bender MD 1,000 mg at 06/22/25 0141 calcium gluconate 3,000 mg in sodium chloride 0.9 % 100 mL IVPB 3,000 mg intravenous PRN Toy Baez MD calcium gluconate 4,000 mg in sodium chloride 0.9 % 250 mL IVPB 4,000 mg intravenous PRN Toy Baez MD calcium gluconate IVPB 2000 mg/100 mL (20 mg/mL premix) 2,000 mg intravenous PRN Toy Baez MD dextrose (GLUTOSE) 40 % gel 15 g 15 g oral PRN Rocio Davis MD dextrose 50 % in water (D50W) 50% solution 25 mL 25 mL intravenous PRN Rocio Davis MD glucagon HCL injection 1 mg 1 mg intramuscular PRN Rocio Davis MD glucagon HCL injection 1 mg 1 mg intramuscular Once Erika Crisostomo MD heparin (porcine) injection 2,000 Units 2,000 Units intravenous PRN Rocio Davis MD heparin infusion 48252 units/500 mL in 0.45% NaCl (50 units/mL premix) 300-3,500 Units/hr intravenous Continuous Rocio Davis MD 21 mL/hr at 06/21/25 1326 1,050 Units/hr at 06/21/25 1326 hydrALAZINE (APRESOLINE) injection 10 mg 10 mg intravenous Q6H PRN Rocio Davis MD labetaloL (NORMODYNE,TRANDATE) injection 20 mg 20 mg intravenous Q10 Min PRN Rocio Davis MD levothyroxine (SYNTHROID, LEVOTHROID) tablet 25 mcg 25 mcg oral Daily Kendell Bender MD 25 mcg at 06/22/25 0649 lidocaine (LIDODERM) 5 % 1 patch 1 patch transdermal Daily Kendell Bender MD 1 patch at 06/22/25 0831 magnesium sulfate IVPB 2000 mg/50 mL in iso-osmotic water (40 mg/mL premix) 2,000 mg intravenous PRN Rocio Davis MD Or magnesium sulfate IVPB 4000 mg/100 mL in iso-osmotic water (40 mg/mL premix) 4,000 mg intravenous PRN Rocio Davis MD Stopped at 06/19/25 0217 midodrine (PROAMATINE) tablet 5 mg 5 mg oral TID Toy Baez MD 5 mg at 06/22/25 1327 pantoprazole (PROTONIX) EC tablet 40 mg 40 mg oral Daily Kendell Bender MD 40 mg at 06/22/25 0649 potassium chloride (K-TAB,KLOR-CON) CR tablet 20-60 mEq 20-60 mEq oral PRN Toy Baez MD Or potassium chloride (KAYCIEL) 20 mEq/15 mL solution 20-60 mEq 20-60 mEq oral PRN Toy Baez MD Or potassium chloride IVPB 10 mEq/100 mL in water (0.1 mEq/mL premix) 10 mEq intravenous PRN Toy Baez MD rosuvastatin (CRESTOR) tablet 5 mg 5 mg oral Nightly Rocio Davis MD 5 mg at 06/21/25 203 sodium phosphate 20 mmol in sodium chloride 0.9 % 250 mL IVPB 20 mmol intravenous PRN Toy Baez MD Or sodium phosphate 20 mmol in sodium chloride 0.9 % 100 mL IVPB 20 mmol intravenous PRN Toy Baez MD Or sod phos di, mono-K phos mono (K-PHOS NEUTRAL) 250 mg tablet 2 tablet 2 tablet oral PRN Toy Baez MD sodium chloride 0.9 % flush 10 mL 10 mL intravenous PRN Mirian Carranza MD 10 mL at 06/22/25 0831 sodium chloride tablet 1,000 mg 1,000 mg oral 3x daily around food Maisha Vergara MD 1,000 mg at 06/22/25 1208 urea (URE-NA) packet 15 g 15 g oral BID Maisha Vergara MD 15 g at 06/22/25 0831 warfarin (COUMADIN) tablet 2.5 mg 2.5 mg oral Once per day on Tuesday Rocio Davis MD 2.5 mg at 06/20/25 1705 warfarin (COUMADIN) tablet 5 mg 5 mg oral Once per day on Tuesday Rocio Davis MD 5 mg at 06/21/25 1549 Home Meds: Prior to Admission medications Medication Sig Start Date End Date Taking? Authorizing Provider aspirin 81 mg Take 1 tablet (81 mg total) by mouth in the morning. Yes Not In System Ref Prov atenoloL (TENORMIN) 25 mg tablet Take 0.5 tablets (12.5 mg total) by mouth in the morning. 05/20/25 Yes Not In System Ref Prov coenzyme [id number] E 100-5 mg-unit capsule Take 100 mg by mouth in the morning. Yes Not In System Ref Prov finasteride (PROSCAR) 5 mg tablet Take 1 tablet (5 mg total) by mouth in the morning. 01/29/25 Yes Not In System Ref Prov gabapentin (NEURONTIN) 300 mg capsule Take 1 capsule (300 mg total) by mouth in the morning. 04/25/25 Yes Not In System Ref Prov glimepiride (AMARYL) 2 mg tablet Take 1 tablet (2 mg total) by mouth every morning before breakfast. Yes Not In System Ref Prov levothyroxine (SYNTHROID, LEVOTHROID) 25 MCG tablet Take 1 tablet (25 mcg total) by mouth in the morning. 03/07/25 Yes Not In System Ref Prov omeprazole (PriLOSEC) 40 mg capsule Take 1 capsule (40 mg total) by mouth every morning before breakfast. 01/07/25 Yes Not In System Ref Prov pravastatin (PRAVACHOL) 40 mg tablet Take 1 tablet (40 mg total) by mouth in the morning. 10/04/24 Yes Not In System Ref Prov sodium chloride 1,000 mg tablet,soluble Take 1 tablet (1,000 mg total) by mouth in the morning and 1 tablet (1,000 mg total) before bedtime. 05/14/25 Yes Not In System Ref Prov tamsulosin (FLOMAX) 0.4 mg capsule Take 1 capsule (0.4 mg total) by mouth nightly. 05/07/25 Yes Not In System Ref Prov warfarin (COUMADIN) 5 mg tablet Take 0.5-1 tablets (2.5-5 mg total) by mouth in the evening. 03/27/25 Yes Not In System Ref Prov CIALIS 2.5 mg tablet Take 1 tablet (2.5 mg total) by mouth daily as needed for erectile dysfunction. Patient not taking: Reported on 06/17/2025 05/07/25 Not In System Ref Prov urea (URE-NA) 15 gram powder in packet Take 1 packet (15 g total) by mouth in the morning. Not In System Ref Prov Social History: TOBACCO: reports that he has never smoked. He has never used smokeless tobacco. ETOH: reports that he does not currently use alcohol. DRUGS: reports that he does not currently use drugs. OCCUPATION: Family History: No family history on file. Review of Systems: Constitutional: there has been no unanticipated weight loss, no change in energy level, sleep pattern, or activity level. Eyes: No visual changes or diplopia, no scleral icterus. ENT: No Headaches, hearing loss or vertigo, no mouth sores or sore throat. Cardiovascular: No chest pain, dyspnea on exertion, palpitations or loss of consciousness, no cough, hemoptysis, pleuritic pain, or phlebitis. Respiratory: No cough or wheezing, no sputum production, no hematemesis. Gastrointestinal: No abdominal pain, appetite loss, blood in stools, no change in bowel or bladder habits. Genitourinary: No dysuria, trouble voiding, or hematuria Musculoskeletal: No gait disturbance, weakness or joint complaints Integumentary: No rash or pruritis Neurological: No headache, diplopia, change in muscle strength, numbness or tingling, no change in gait, balance, coordination, mood, affect, memory, mentation, behavior Psychiatric: No anxiety, or depression Endocrine: No temperature intolerance, no excessive thirst, fluid intake, or urination, no tremor Hematologic/Lymphatic: No abnormal bruising or bleeding, blood clots or swollen lymph nodes Allergic/Immunologic: No nasal congestion or hives OBJECTIVE LAST LABS: CBC: Results from last 7 days Lab Units 06/22/2522006/21/2575706/20/25 0844 WBC x10E9/L 5.6 5.3 6.5 HEMOGLOBIN g/dL 12.5* 14.1 13.3 HEMATOCRIT % 36.3* 40.7 38.1* MCV fL 91 89 90 PLATELETS X10E9/L 212 189 204 BMP: Results from last 7 days Lab Units 06/22/25 0542 06/22/25 0220 06/21/25 1925 06/21/25 1314 06/21/25 0758 06/20/25 1238 06/20/25 0844 06/19/25 1927 06/19/25 0718 06/18/25 1528 06/18/25 0343 06/17/25 1653 SODIUM mmol/L 129* 127* 126* < > 127* < > 124* < > 123* -- < > 127* POTASSIUM mmol/L 4.4 4.3 4.8 < > 4.5 < > 4.3 < > 4.3 -- < > 4.5 CHLORIDE mmol/L 94* 93* 92* < > 93* < > 89* < > 88* -- < > 93* CO2 mmol/L 28 26 26 < > 25 < > 27 < > 26 -- < > 26 BUN mg/dL -- 35* -- -- 25 -- 12 -- 10 -- < > 10 CREATININE mg/dL -- 0.76 -- -- 0.72 -- 0.73 -- 0.73 -- < > 0.75 CALCIUM mg/dL -- 9.1 -- -- 9.0 -- 9.0 -- 8.8 -- < > 9.2 PHOSPHORUS mg/dL -- -- -- -- -- -- -- -- -- -- -- 3.3 MAGNESIUM mg/dL -- -- -- -- -- -- -- -- 2.3 1.6* -- 1.7* < > = values in this interval not displayed. PT/INR: Results from last 7 days Lab Units 06/22/2521906/21/2575707/25 0844 PROTIME sec 19.9* 17.7* 15.0* INR 1.8* 1.6* 1.3* APTT: MAG: Results from last 7 days Lab Units 06/19/25 0718 06/18/25 1528 06/17/25 1653 MAGNESIUM mg/dL 2.3 1.6* 1.7* D Dimer: Troponin I ProBNP Lipid Panel: Lab Results Component Value Date CHOL 150 06/18/2025 TRIG 70 06/18/2025 HDL 41 06/18/2025 Liver Panel: No results found for: TBIL , ALB HgA1C: Lab Results Component Value Date HGBA1C 5.7 (H) 06/18/2025 ABG: CV HISTORY: ECHO: Echo complete W/O contrast Result Date: 06/19/2025 Left Ventricle: Left ventricle appears normal in size. Systolic function is mildly to moderately decreased with an ejection fraction of 40-45%. See wall score diagram for wall motion abnormalities. Right Ventricle: Right ventricular size is mildly dilated. Systolic function is low normal. Mitral Valve: There is mild regurgitation. Tricuspid Valve: There is mild to moderate regurgitation. Aorta: The aortic root is mildly dilated. The ascending aorta is mildly dilated. 3.9 cm. STRESS: No results found. HOLTER: No results found. CARDIAC CATH: No results found. CAROTID: Vas carotid duplex bilateral Result Date: 06/19/2025 Right: Plaque with no significant ICA spectral Doppler or color flow disturbances; ICA 59/08 cm/sec. Antegrade vertebral artery flow. Left: Plaque with no significant ICA spectral Doppler or color flow disturbances; ICA 103/25 cm/sec. Antegrade vertebral artery flow. Conclusions: BILATERAL: Plaque without significant stenosis (<50%) of the internal carotid artery. Antegrade vertebral artery flow. Recommendations: Any questions prior to finalization, please call the reading physician during normal business hours at the phone number beside their name. CXR: No results found. PHYSICAL EXAM Admission Weight: Weight: 78 kg (171 lb 15.3 oz) I/O last 3 completed shifts: In: 1450 [P.O.:1450] Out: 550 [Urine:550] Weight change: -6.1 kg (-13 lb 7.2 oz) Wt Readings from Last 3 Encounters: 06/22/25 72.1 kg (158 lb 15.2 oz) Vitals: Vitals: 06/22/25 0500 06/22/25 0800 06/22/25 1201 06/22/25 1548 BP: 128/61 107/59 136/73 Pulse: 84 64 56 Resp: 18 16 Temp: 37.4 C (99.3 F) 36.8 C (98.2 F) TempSrc: Axillary Oral SpO2: 96% 95% 95% Weight: 72.1 kg (158 lb 15.2 oz) Height: Admit Weight Weight: 78 kg (171 lb 15.3 oz) Last 3 Weights Last 3 Weight Readings 06/20/25 0500 06/21/25 0500 06/22/25 0500 Weight: 77.9 kg (171 lb 11.8 oz) 78.2 kg (172 lb 6.4 oz) 72.1 kg (158 lb 15.2 oz) Body mass index is 22.81 kg/m . INTAKE/OUTPUT I/O last 3 completed shifts: In: 1450 [P.O.:1450] Out: 550 [Urine:550] Intake/Output Summary (Last 24 hours) at 06/22/2025 1605 Last data filed at 06/22/2025 1125 Gross per 24 hour Intake 630 ml Output 1025 ml Net -395 ml General appearance: Alert oriented and cooperative, in no acute distress Skin: Warm and dry to touch Head: Normocephalic, without obvious abnormality, atraumatic Eyes: Conjunctivae unremarkable, EOMs intact, sclera non icteric Neck: No JVD, no carotid bruit, neck supple, trachea midline Lungs: Clear to ausculation bilaterally, no use of accessory muscles. Heart:: irregularly irregular with normal S1 and S2 , no murmurs and no gallops. 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 There were no pauses greater than 5 seconds, and overall heart rates and atrial fibrillation are relatively well controlled except with activity which is tolerable. Given that he is on midodrine, I would not advocate for any AV fariba agents for rate control due to hypotensive effects. If his resting heart rates are under 110 beats per minute, this would qualify as rate control and no additional agents need to be initiated. I am concerned about his anticoagulation status, numerous labs in the past demonstrating subtherapeutic INR now with recurrent stroke/TIA. Recommend starting apixaban 5 mg b.i.d.. I will continue heparin drip until 9:00 p.m., apixaban will be started at that time, we will discontinue warfarin order. This will allow for more consistent anticoagulation in the setting of recurrent cardioembolic phenomenon. Otherwise, no additional recommendations from Cardiology perspective, we will sign off. Please call back with any additional questions. KAYE GOEL MD This note was completed using a voice senior sales compensation analyst system. Every effort was made to ensure accuracy. However, inadvertent computerized senior sales compensation analyst errors may be present. Associated Order(s): IP CONSULT TO PHYSICAL MEDICINE REHAB Images from the original note were not included. PHYSICAL MEDICINE AND REHABILITATION CONSULT Date of Admission: 06/17/2025 1:38 PM Referring Physician: Mirian Carranza MD PCP: TANYA Lozano Chief Compliant: Principal Problem: CVA (cerebral vascular accident) ([facility]) Reason for Consultation: Rehabilitation Candidacy and Rehab [facility] Physicians/Services Consulting Providers Provider Service Specialty MD Kassi Gonsales Physical Medicine and Rehabilitation Physical Medicine & Rehabilitation MD Kassi Zuniga Nephrology Nephrology History Of Present Illness: Dariel Zabala is a 85 y.o. Other male history of AFib on Coumadin, hypertension BPH diabetes who presents to the hospital with right-sided weakness on 06/17/2025 1:38 PM. NIH score was 13. CT head no acute process. CTA showed right P1 P2 occlusion. INR was 1.25 TNK was given to the patient and transferred to [facility]. CT perfusion study showed deficit in anterior temporal horn. EEG generalized slowing. Patient became agitated and confused and making progress. MRI showed no acute infarct. Patient also had recent fall and admitted to the hospital with nasal bone fracture. Patient has chronic hyponatremia secondary to SIADH. I was consulted regarding Rehabilitation needs. ROS : A comprehensive 14 review of systems was negative except for Confused, drowsy, generalized weakness and debility Cardiovascular ROS: positive for - irregular heartbeat Respiratory ROS: positive for - shortness of breath Neurological ROS: positive for - gait disturbance and weakness Musculoskeletal ROS: positive for - gait disturbance and muscular weakness PMH Past Medical History: Diagnosis Date At[place] BPH (benign prostatic hyperplasia) Broken nose CVA [place]cerebral vascular [place]) [place] 06/17/2025 Diabetes [place] Epistaxis Hypertension Hyponatremia secondary to SIADH Hypothyroid Lumbar spondylosis TIA (transient ischemic attack) PSH Past Surgical History: Procedure Laterality Date NECK SURGERY plate in neck per Allergies No Known Allergies Medications: Scheduled meds atenoloL, 12.5 mg, oral, Daily gabapentin, 300 mg, oral, Daily levothyroxine, 25 mcg, oral, Daily lidocaine, 1 patch, transdermal, Daily pantoprazole, 40 mg, oral, Daily rosuvastatin, 5 mg, oral, Nightly sodium chloride, 1,000 mg, oral, 3x daily around food urea, 15 g, oral, BID warfarin, 2.5 mg, oral, Once per day on Tuesday warfarin, 5 mg, oral, Once per day on Tuesday PRN meds acetaminophen OR acetaminophen calcium gluconate OR calcium gluconate OR calcium gluconate dextrose dextrose 50 % in water (D50W) glucagon (human recombinant) heparin (porcine) hydrALAZINE labetalol magnesium sulfate OR magnesium sulfate potassium chloride OR potassium chloride potassium chloride in water OR potassium chloride in water sodium phosphate IV OR sodium phosphate IV - central line OR sod phos di, mono-K phos mono sodium chloride Social History Social History Socioeconomic History Marital status: Spouse name: Not on file Number of children: Not on file Years of education: Not on file Highest education level: Not on file Occupational History Not on file Tobacco Use Smoking status: Never Smokeless tobacco: Never Vaping Use Vaping status: Never Used Substance and Sexual Activity Alcohol use: Not Currently Drug use: Not Currently Sexual activity: Not on file Other Topics Concern Not on file Social History Narrative Not on file Social Drivers of Health Financial Resource Strain: Not on file Food Insecurity: No Food Insecurity (06/18/2025) Hunger Screening Food Insecurity - Worry: Never True Food Insecurity - Inability: Never True Transportation Needs: No Transportation Needs (06/17/2025) PRAPARE - Transportation Lack of Transportation (Medical): No Lack of Transportation (Non-Medical): No Physical Activity: Not on file Stress: Not on file Social Connections: Not on file Interpersonal Safety: Not At Risk (06/17/2025) Humiliation, Afraid, Rape, and Kick questionnaire Fear of Current or Ex-Partner: No Emotionally Abused: No Physically Abused: No Sexually Abused: No Housing Instability: Low Risk (06/17/2025) Housing Instability Housing Instability: No Patient lives with spouse and patient had recent fall. Independent in basic ADLs prior to admission. Premorbid level of function: Prior Function Lives With: Spouse (Leelee) (06/19/25 1410) Level of Mobility: Independent with ADLs and functional transfers or gait (06/19/25 1410) Homemaking Assistance: Independent (06/19/25 1410) Vocational: Retired (06/19/25 1410) Other: Per EMR review, pt indep at baseline for mobility and ADLs, driving. Pt had recent fall 06/02/25 while adjusting lawn chair resulting in nasal bone fx and persistent epistaxis. (06/19/25 1410) Family History No family history on file. Physical Examination Vital Signs: Blood pressure 137/63, pulse 71, temperature 36.6 C (97.9 F), temperature source Oral, resp. rate 16, height 177.8 cm (5' 10 ), weight 77.9 kg (171 lb 11.8 oz), SpO2 94%. Admission Weight: Weight: 78 kg (171 lb 15.3 oz) General Appearance: no distress Head: Normocephalic, without obvious abnormality, atraumatic Eyes: conjunctivae/corneas clear. PERRL, EOM's intact. Fundi benign. ENT: ENT exam normal, no neck nodes or sinus tenderness Neck: no adenopathy, no carotid bruit, no JVD, supple, symmetrical, trachea midline, and thyroid not enlarged, symmetric, no tenderness/mass/nodules Lungs: clear to auscultation bilaterally Heart: regular rate and rhythm, S1, S2 normal, no murmur, click, rub or gallop Abdomen: soft, non-tender; bowel sounds normal; no masses, no organomegaly Extremities: extremities normal, atraumatic, no cyanosis or edema Skin: Skin color, texture, turgor normal. No rashes or lesions Neurologic: generalized weakness IMAGE: EEG Video Monitoring Daily Result Date: 06/20/2025 Images from the original result were not included. Continuous video EEG monitoring study Date of Report: 06/20/2025 History: This is a n 85 yo man with altered mental status, concern for seizures. Procedure: Start: 20:37 06/19/2025 End: 06:30 06/20/2025 This is a standard [facility] EEG monitoring report using scalp and ear electrodes in the 10-20 international System. Recording was reviewed with multiple reformatted montages. Quantitative digital analysis data was utilized as needed. Technical Description: No well-defined posterior dominant rhythm was noted. The anterior posterior gradient was absent. The background was continuous and symmetric and consisted of 20-40 uv amplitude polymorphic admixed theta and delta waves. Variability was absent. Reactivity was indeterminate. Sleep changes were not noted. No definite interictal epileptiform activity in the form of spike or sharp wave is noted. Clinical Interpretation: This EEG is abnormal due to the presence of moderate to severe generalized background slowing consistent with moderate to severe bihemispheric cerebral dysfunction that may be seen in postictal states, hypoxic, toxic or metabolic abnormalities, sedative medications use or primary neurological disorders. Yaquelin Esparza MD Infection Control Practitioner Neurology/Neurophysiology [facility] Recent Results (from the past 48 hours) Hemoglobin Collection Time: 06/18/25 3:28 PM Result Value Ref Range Hemoglobin 13.9 13 - 17 g/dL Platelet count Collection Time: 06/18/25 3:28 PM Result Value Ref Range Platelet Count 214 150 - 450 X10E9/L MPV 8.7 7 - 12 fL Protime & INR Collection Time: 06/18/25 3:28 PM Result Value Ref Range PROTIME 13.0 9.8 - 13.2 sec INR 1.1 0.9 - 1.2 Extra Tubes Collection Time: 06/18/25 3:28 PM Narrative The following orders were created for panel order Extra Tubes. Procedure Abnormality Status --------- ------ PST TOP[[id number]] Final result Please view results for these tests on the individual orders. PST TOP Collection Time: 06/18/25 3:28 PM Result Value Ref Range Extra Tube Auto Resulted Magnesium Collection Time: 06/18/25 3:28 PM Result Value Ref Range MAGNESIUM 1.6 (L) 1.8 - 2.6 mg/dL Bedside Glucose *Place/Obtain serum glucose if >500 per glucometer. Collection Time: 06/18/25 4:01 PM Result Value Ref Range Bedside Glucose (POC) 154 (H) 65 - 99 mg/dL Anti XA unfractionated heparin Collection Time: 06/18/25 10:28 PM Result Value Ref Range ANTI XA UFH 0.26 (L) 0.30 - 0.70 IU/mL Basic Metabolic Panel Collection Time: 06/19/25 7:18 AM Result Value Ref Range SODIUM 123 (L) 134 - 146 mmol/L POTASSIUM 4.3 3.5 - 5.0 mmol/L CHLORIDE 88 (L) 98 - 109 mmol/L CARBON DIOXIDE 26 22 - 32 mmol/L ANION GAP 9 5 - 15 mmol/L BLOOD UREA NITROGEN 10 5 - 27 mg/dL CREATININE 0.73 0.60 - 1.30 mg/dL GLUCOSE 104 (H) 65 - 99 mg/dL CALCIUM 8.8 8.5 - 10.5 mg/dL EGFR Non-Race Dependent 90 >=60 ml/min/1.73sq.m CBC auto differential Collection Time: 06/19/25 7:18 AM Result Value Ref Range WBC 7.9 4 - 11 x10E9/L RBC Count 4.31 4.1 - 5.7 X10E12/L Hemoglobin 13.4 13 - 17 g/dL Hematocrit 38.7 (L) 39 - 50 % MCV 90 80 - 100 fL MCH 31.1 27 - 34 pg MCHC 34.6 32 - 36 g/dL RDW 13.5 11.5 - 15 % Platelet Count 200 150 - 450 X10E9/L MPV 8.8 7 - 12 fL Neutrophils % 69.6 % Lymphocytes % 16.0 % Monocytes % 12.6 % Eosinophils % 1.1 % Basophils % 0.7 % Neutrophils Absolute (A) 5.5 1.5 - 6.6 10*3/uL Lymphocytes Absolute 1.3 1.0 - 3.5 10*3/uL Monocytes Absolute 1.0 (H) 0.0 - 0.9 10*3/uL Eosinophils Absolute 0.1 0.0 - 0.4 10*3/uL Basophils Absolute 0.1 0.0 - 0.2 10*3/uL Differential Type AUTOMATED DIFFERENTIAL Magnesium Collection Time: 06/19/25 7:18 AM Result Value Ref Range MAGNESIUM 2.3 1.8 - 2.6 mg/dL Anti XA unfractionated heparin Collection Time: 06/19/25 7:18 AM Result Value Ref Range ANTI XA UFH 0.60 0.30 - 0.70 IU/mL Anti XA unfractionated heparin Collection Time: 06/19/25 3:36 PM Result Value Ref Range ANTI XA UFH 0.64 0.30 - 0.70 IU/mL Electrolyte panel Collection Time: 06/19/25 7:27 PM Result Value Ref Range SODIUM 120 (L) 134 - 146 mmol/L POTASSIUM 4.7 3.5 - 5.0 mmol/L CHLORIDE 89 (L) 98 - 109 mmol/L CARBON DIOXIDE 24 22 - 32 mmol/L ANION GAP 7 5 - 15 mmol/L Electrolyte panel Collection Time: 06/20/25 12:42 AM Result Value Ref Range SODIUM 122 (L) 134 - 146 mmol/L POTASSIUM 4.3 3.5 - 5.0 mmol/L CHLORIDE 90 (L) 98 - 109 mmol/L CARBON DIOXIDE 24 22 - 32 mmol/L ANION GAP 8 5 - 15 mmol/L Basic Metabolic Panel Collection Time: 06/20/25 8:44 AM Result Value Ref Range SODIUM 124 (L) 134 - 146 mmol/L POTASSIUM 4.3 3.5 - 5.0 mmol/L CHLORIDE 89 (L) 98 - 109 mmol/L CARBON DIOXIDE 27 22 - 32 mmol/L ANION GAP 8 5 - 15 mmol/L BLOOD UREA NITROGEN 12 5 - 27 mg/dL CREATININE 0.73 0.60 - 1.30 mg/dL GLUCOSE 98 65 - 99 mg/dL CALCIUM 9.0 8.5 - 10.5 mg/dL EGFR Non-Race Dependent 90 >=60 ml/min/1.73sq.m CBC auto differential Collection Time: 06/20/25 8:44 AM Result Value Ref Range WBC 6.5 4 - 11 x10E9/L RBC Count 4.25 4.1 - 5.7 X10E12/L Hemoglobin 13.3 13 - 17 g/dL Hematocrit 38.1 (L) 39 - 50 % MCV 90 80 - 100 fL MCH 31.3 27 - 34 pg MCHC 34.9 32 - 36 g/dL RDW 13.8 11.5 - 15 % Platelet Count 204 150 - 450 X10E9/L MPV 9.5 7 - 12 fL Neutrophils % 64.7 % Lymphocytes % 22.4 % Monocytes % 10.7 % Eosinophils % 1.2 % Basophils % 1.0 % Neutrophils Absolute (A) 4.2 1.5 - 6.6 10*3/uL Lymphocytes Absolute 1.5 1.0 - 3.5 10*3/uL Monocytes Absolute 0.7 0.0 - 0.9 10*3/uL Eosinophils Absolute 0.1 0.0 - 0.4 10*3/uL Basophils Absolute 0.1 0.0 - 0.2 10*3/uL Differential Type AUTOMATED DIFFERENTIAL Protime & INR Collection Time: 06/20/25 8:44 AM Result Value Ref Range PROTIME 15.0 (H) 9.8 - 13.2 sec INR 1.3 (H) 0.9 - 1.2 Anti XA unfractionated heparin Collection Time: 06/20/25 8:44 AM Result Value Ref Range ANTI XA UFH 0.62 0.30 - 0.70 IU/mL Electrolyte panel Collection Time: 06/20/25 12:38 PM Result Value Ref Range SODIUM 122 (L) 134 - 146 mmol/L POTASSIUM 4.6 3.5 - 5.0 mmol/L CHLORIDE 90 (L) 98 - 109 mmol/L CARBON DIOXIDE 24 22 - 32 mmol/L ANION GAP 8 5 - 15 mmol/L THERAPY Speech Therapy Yes Dysphagia and Cognition Current Level of Function - Physical Therapy Mobility/transfers: Supine to Sit: Max assist (2 assist) (06/19/251409) Sit to Supine: Max assist (2 assist) (06/19/251409) Transfers Other: not appropriate to attempt standing this date due to poor sitting balance and not following commands. Recommend maxi richard lift for safe transfers with staff. (06/19/251409) Ambulation: Gait Gait Distance: patient was dependent for static sitting balance. Tends to push back and to the left. (06/19/251408) Other: not appropriate at this time (06/19/251409) Activity limitations: Activity Tolerance Endurance: Tolerates <30 minutes activity WITHOUT vital sign changes (06/19/251409) Other: room air (06/19/251408) Weight-bearing: Current Level of Function - Occupational Therapy Feeding: Eating Assistance: Total assist (06/19/251408) Grooming: Grooming Assistance: Max assist (06/19/251408) Bathing:Bathing/Showering Assistance: Max assist (06/19/251408) Dressing: Toileting: Activity limitations: Activity Tolerance Endurance: Tolerates <30 minutes activity WITHOUT vital sign changes (06/19/251409) Other: room air (06/19/251408) Assessment/Plan Principal Problem: [place]cere[place] MRI is negative for ischemia Debility Gait difficulty Generalized weakness Encephalopathy EEG in progress Discussed rehab options such as inpatient/acute rehab 3 hours of therapy a day with 24 hours of doctors and nurses care vs skilled care nursing center/subacute rehab 1-2 hours of therapy a day vs home care with home care or outpatient therapy. Reviewed Physical and occupational therapy notes, MAX 2 Inpatient VS SNF pending progress. Currently patient is requiring MAX A and getting therapy notes. Thank you for the referral. Richa Beyer MD Images from the original note were not included. NEPHROLOGY CONSULT NOTE Date of Admission: 06/17/2025 1:38 PM Reason for Consult: Hyponatremia Referring Physician: Rocio Daivs MD PCP: TANYA Lozano History of Present Illness: Dariel Zabala is a 85 y.o. male with a history of hypertension, diabetes mellitus type 2, dyslipidemia, atrial fibrillation on chronic anticoagulation, hypothyroidism, admitted with right-sided weakness and changes in the speech, CT of the brain was negative for acute pathology, CT angiogram revealed right P1/P2 occlusion, INR was 1.25 she received TNK, MRI did not reveal acute infarct , the patient has hyponatremia with a sodium of 127 dropped to 120, it seems that she has a chronic hyponatremia and is on sodium chloride tablets and urea Review of Systems: Unobtainable, patient is confused PMH & PSH Hypertension Diabetes mellitus type 2 Atrial fibrillation on chronic anticoagulation Dyslipidemia Chronic hyponatremia Hypothyroidism Benign prostatic hypertrophy Nasal bone fracture Cervical disc disease Carpal tunnel release Social History: Social History Socioeconomic History Marital status: Spouse name: Not on file Number of children: Not on file Years of education: Not on file Highest education level: Not on file Occupational History Not on file Tobacco Use Smoking status: Never Smokeless tobacco: Never Vaping Use Vaping status: Never Used Substance and Sexual Activity Alcohol use: Not Currently Drug use: Not Currently Sexual activity: Not on file Other Topics Concern Not on file Social History Narrative Not on file Social Drivers of Health Financial Resource Strain: Not on file Food Insecurity: No Food Insecurity (06/18/2025) Hunger Screening Food Insecurity - Worry: Never True Food Insecurity - Inability: Never True Transportation Needs: No Transportation Needs (06/17/2025) PRAPARE - Transportation Lack of Transportation (Medical): No Lack of Transportation (Non-Medical): No Physical Activity: Not on file Stress: Not on file Social Connections: Not on file Interpersonal Safety: Not At Risk (06/17/2025) Humiliation, Afraid, Rape, and Kick questionnaire Fear of Current or Ex-Partner: No Emotionally Abused: No Physically Abused: No Sexually Abused: No Housing Instability: Low Risk (06/17/2025) Housing Instability Housing Instability: No Family History: Unobtainable, patient is confused Allergies: No Known Allergies Home Meds: Medications Prior to Admission Medication Sig Dispense Refill Last Dose/Taking aspirin 81 mg Take 1 tablet (81 mg total) by mouth in the morning. Taking atenoloL (TENORMIN) 25 mg tablet Take 0.5 tablets (12.5 mg total) by mouth in the morning. Taking coenzyme [id number] 100-5 mg-unit capsule Take 100 mg by mouth in the morning. Taking finasteride (PROSCAR) 5 mg tablet Take 1 tablet (5 mg total) by mouth in the morning. Taking gabapentin (NEURONTIN) 300 mg capsule Take 1 capsule (300 mg total) by mouth in the morning. Taking glimepiride (AMARYL) 2 mg tablet Take 1 tablet (2 mg total) by mouth every morning before breakfast. Taking levothyroxine (SYNTHROID, LEVOTHROID) 25 MCG tablet Take 1 tablet (25 mcg total) by mouth in the morning. Taking omeprazole (PriLOSEC) 40 mg capsule Take 1 capsule (40 mg total) by mouth every morning before breakfast. Taking pravastatin (PRAVACHOL) 40 mg tablet Take 1 tablet (40 mg total) by mouth in the morning. Taking sodium chloride 1,000 mg tablet,soluble Take 1 tablet (1,000 mg total) by mouth in the morning and 1 tablet (1,000 mg total) before bedtime. Taking tamsulosin (FLOMAX) 0.4 mg capsule Take 1 capsule (0.4 mg total) by mouth nightly. Taking warfarin (COUMADIN) 5 mg tablet Take 0.5-1 tablets (2.5-5 mg total) by mouth in the evening. Taking CIALIS 2.5 mg tablet Take 1 tablet (2.5 mg total) by mouth daily as needed for erectile dysfunction. (Patient not taking: Reported on 06/17/2025) Unknown urea (URE-NA) 15 gram powder in packet Take 1 packet (15 g total) by mouth in the morning. Inpatient Meds: atenoloL, 12.5 mg, oral, Daily gabapentin, 300 mg, oral, Daily levothyroxine, 25 mcg, oral, Daily lidocaine, 1 patch, transdermal, Daily pantoprazole, 40 mg, oral, Daily rosuvastatin, 5 mg, oral, Nightly sodium chloride, 1,000 mg, oral, BID warfarin, 2.5 mg, oral, Once per day on Tuesday warfarin, 5 mg, oral, Once per day on Tuesday Inpatient Infusion Meds: heparin, 300-3,500 Units/hr, Last Rate: 1,050 Units/hr (06/20/25 1214) Physical Exam: Admission Weight: Weight: 78 kg (171 lb 15.3 oz) Vitals: Vitals: 06/19/25 2320 06/20/25 0328 06/20/25 0500 06/20/25 0842 BP: 134/68 123/70 137/63 Pulse: 73 65 71 Resp: Temp: 36.4 C (97.6 F) 36.7 C (98 F) 36.6 C (97.9 F) TempSrc: Oral Oral Oral SpO2: 94% Weight: 77.9 kg (171 lb 11.8 oz) Height: INTAKE/OUTPUT: Intake/Output Summary (Last 24 hours) at 06/20/2025 1220 Last data filed at 06/20/2025 0944 Gross per 24 hour Intake 200 ml Output -- Net 200 ml General appearance: alert in no acute distress. Head: Normocephalic, without obvious abnormality, atraumatic Eyes: Conjunctivae unremarkable, pupils reactive Neck: No JVD, no carotid bruit, neck supple, trachea midline cardiovascular: normal S1-S2, No gallops. Respiratory: clear to auscultation B/L, Gastrointestinal: no tenderness, no guarding, no hepatosplenomegaly could be appreciated. Muscloskeletal: No LE edema, no active arthritis, normal range of movement Neurology: Moves all extremities, alert oriented Skin: no rash, no petechia Psychiatric, no anxiety, no suicidal ideas Lymphatic: no lymphadenopathy, no lymphedema Labs: Results from last 7 days Lab Units 06/20/25 0844 06/20/25 0042 06/19/25 1927 06/19/25 0718 06/18/25 1528 06/18/25 0343 06/17/25 1653 SODIUM mmol/L 124* 122* 120* 123* -- 127* 127* POTASSIUM mmol/L 4.3 4.3 4.7 4.3 -- 4.3 4.5 CHLORIDE mmol/L 89* 90* 89* 88* -- 93* 93* CO2 mmol/L 27 24 24 26 -- 24 26 BUN mg/dL 12 -- -- 10 -- 10 10 CREATININE mg/dL 0.73 -- -- 0.73 -- 0.71 0.75 CALCIUM mg/dL 9.0 -- -- 8.8 -- 9.1 9.2 MAGNESIUM mg/dL -- -- -- 2.3 1.6* -- 1.7* PHOSPHORUS mg/dL -- -- -- -- -- -- 3.3 Results from last 7 days Lab Units 06/20/25 0844 06/19/25 0718 06/18/25 1528 06/18/25 0343 WBC x10E9/L 6.5 7.9 -- 5.4 HEMOGLOBIN g/dL 13.3 13.4 13.9 12.7* HEMATOCRIT % 38.1* 38.7* -- 36.0* PLATELETS X10E9/L 204 200 214 251 Results from last 7 days Lab Units 06/19/25 0718 06/18/25 1528 06/17/25 1653 MAGNESIUM mg/dL 2.3 1.6* 1.7* Lab Results Component Value Date CALCIUM 9.0 06/20/2025 No results found for: IRON , TIBC , FERRITIN Impression: Acute CVA with right-sided weakness, CT angiogram revealed right P1/P2 occlusion, he received TNK 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 ANY QUESTIONS FEEL FREE TO CALL: 1. OFFICE [phone] 2. ANSWERING SERVICE:[phone] YOU CAN CONTACT ME THROUGH [employer] DURING THE DAYTIME HOURS, IF NO RESPONSE AFTER 5 MINUTES CALL THE ANSWERING SERVICE This note was created with the assistance of a speech-recognition program. Although the intention is to generate a document that actually reflects the content of the visit, no guarantees can be provided that every mistake has been identified and corrected by editing. documented in this encounter [facility] 06-22-2025 Plan of care note Problem: Pain Goal: Patient goal is pain score less than 4, able to rest, and participant in treatment plan as appropriate Description: INTERVENTIONS: 1. Encourage patient or legal personal banking representative to report early pain and ask for pain medicine when needed 2. Assess pain using appropriate pain scale and include the scale used when documenting 3. Administer analgesics based on type and severity of pain and evaluate response within appropriate time frame 4. Implement non-pharmacological measures as appropriate and evaluate response 5. Consider cultural and social influences on pain and pain management 6. Notify LIP if interventions ineffective or patient reports new pain 7. Monitor vital signs including pulse ox, end-tidal CO2 based on pain intervention 8. Reassess pain per policy 9. Teach patient or legal personal banking representative interventions for comforting Outcome: Progressing Note: Evaluation of progress towards goal: no complaints of pain this shift; continue to monitor and reassess Problem: Safety Goal: Patient will be injury free during hospitalization Description: INTERVENTIONS: 1. Assess patient's risk for falls and implement fall prevention plan of care per policy 2. Provide and maintain a safe environment 3. Proper use of double Identifiers 4. Medication administration using the 5 rights 5. Hand hygiene 6. Specimens are labeled at the bedside 7. Instruct patient/ patient personal banking representative about use of safety devices 8. Include patient/ patient personal banking representative in decisions related to safety Outcome: Progressing Note: Evaluation of progress towards goal: no injuries; continue to maintain safety measures and fall prevention interventions Problem: Infection Goal: Absence of infection during hospitalization Description: INTERVENTIONS 1. Assess and monitor for signs and symptoms of infection. 2. Monitor lab/diagnostic results. 3. Monitor all insertion sites i.e., indwelling lines, tubes and drains. 4. Monitor endotracheal (as able) and nasal secretions for changes in amount and color. 5. Administer medications as ordered. 6. Instruct and encourage patient and family to use good hand hygiene technique. 7. Identify and instruct patient/patient personal banking representative in use of appropriate isolation precautions for identified infection/symptoms. 8. Provide and discuss with patient/patient personal banking representative on educational MDRO sheet. 9. Encourage and monitor nutritional status daily and consult water commissioner if indicated. 10. Implement neutropenic guidelines as needed. Outcome: Progressing Note: Evaluation of progress towards goal: continue to monitor labs, vitals, tele, IV site Problem: Knowledge Deficit Goal: Patient/patient personal banking representative demonstrates understanding of disease process, treatment plan, medications, and discharge instructions Description: INTERVENTIONS 1. Complete learning assessment and assess knowledge base 2. Provide teaching at level of understanding 3. Provide teaching via preferred learning method(s) Outcome: Progressing Note: Evaluation of progress towards goal: education provided, reinforce PRN; included via phone; questions addressed Problem: Discharge Planning Goal: Discharge to post-acute care, other facility, or home with appropriate resources Description: Patient's goal is: INTERVENTIONS 1. Conduct assessment to determine patient/family and health care team treatment goals, and need for post-acute services based on payer coverage, community resources, and patient preferences, and barriers to discharge 2. Coordinate with Social work, Care Navigation, and Utilization Review to arrange appropriate level of services according to patient's needs based on patient preference and payer coverage in collaboration with the physician and health care team 3. Address psychosocial, clinical, and financial barriers to discharge as identified in assessment in conjunction with the patient/family and health care team 4. Consult appropriate ancillary services (i.e.. PT/OT/ST, etc) as needed 5. Communicate with and update the patient/family, physician, and health care team regarding progress on the discharge plan 6. Identify discharge learning needs (meds, wound care, etc). 7. Arrange for needed discharge transportation as appropriate Outcome: Progressing Note: Evaluation of progress towards goal: plan dc to [facility] tomorrow; accepting. MD wants to monitor BP and HR overnight as resuming atenolol today Problem: Potential for Compromised Skin Integrity Goal: Skin integrity is maintained or improved Description: Patient's goal is: INTERVENTIONS 1. Perform initial skin assessment on admission and as needed 2. Turn patient every 2 hours and PRN 3. Relieve pressure to bony prominences 4. Avoid shearing 5. Keep skin clean and dry 6. Alternate a full bath with partial baths for elderly 7. Apply lotion/moisturizer on skin 8. Monitor patient's hygiene practices 9. Float heels 10. Collaborate with interdisciplinary team and initiate plans and interventions as needed Outcome: Progressing Note: Evaluation of progress towards goal: encourage frequent turning and OOB activity to promote skin integrity protection Goal: Patient's nutritional intake is adequate Description: Patient's goal is: INTERVENTIONS 1. Assess and monitor food intake and supplements, patient food preferences, nausea, vomiting, labs, oral cavity (gums, teeth, tongue, mucosa), proper denture fit, and cultural beliefs 2. Monitor for signs of hypoglycemia and hyperglycemia 3. Collaborate with interdisciplinary team and initiate plan and interventions as ordered 4. Monitor patient's weight 5. Assist patient with meals/food selection 6. Assist patient with eating 7. Allow adequate time for meals 8. Provide pleasant environment during mealtime 9. Increase social contact during mealtimes 10. Plan activities to conserve energy 11. Encourage/perform oral hygiene as appropriate 12. Encourage patient to take dietary supplement as ordered 13. Collaborate with clinical water commissioner 14. Include patient/ patient's personal banking representative in decisions related to nutrition Outcome: Progressing Note: Evaluation of progress towards goal: encourage PO intake and hydration Problem: Urinary Incontinence Goal: Perineal skin integrity is maintained or improved Description: INTERVENTIONS 1. Assess genitourinary system, perineal skin, labs (urinalysis), and history of incontinence to include past management, aggravating, and alleviating factors 2. Keep skin clean and dry 3. Apply skin protectant 4. Develop skin care regimen 5. Provide privacy when changing patients incontinence device to maintain their dignity 6. Consider placing an indwelling catheter 7. Collaborate with interdisciplinary team and initiate plans and interventions as needed Outcome: Progressing Note: Evaluation of progress towards goal: assist with urinal and hygiene Problem: Neurological Deficit Goal: Neurological status is stable or improving Description: Patient's goal is: INTERVENTIONS 1. Complete Neurological assessment as indicated/ordered 2. Initiate measures to prevent increased intracranial pressure 3. Monitor and assess patient's level of consciousness, motor function, sensory function, and level of assistance needed for ADLs 4. Monitor and report changes from baseline 5. Maintain blood pressure and fluid volume within ordered parameters to optimize cerebral perfusion and minimize risk of hemorrhage 6. Monitor labs and diagnostic tests 7. Administer anti-seizure medications as ordered 8. Maintain airway, patient safety and administer oxygen as ordered 9. Monitor patient for seizure activity, document and report duration and description of seizure to LIP 10. If seizure occurs, turn patient to side and suction secretions as needed 11. Reorient patient post seizure 12. Seizure pads on all 4 side rails 13. Instruct patient/family to notify RN of any seizure activity 14. Instruct patient/family to call for assistance with activity based on assessment 15. Utilize bleeding precautions if thrombolytic given Outcome: Progressing Note: Evaluation of progress towards goal: Q4H neuro checks and vitals; stroke team following Problem: Activity Intolerance/Impaired Mobility Goal: Mobility/activity is maintained at optimum level for patient Description: Patient's goal is: INTERVENTIONS 1. Assess and monitor patient barriers to mobility and need for assistive/adaptive devices 2. Assess patient's emotional response to limitations 3. Collaborate with interdisciplinary teams and initiate plans and interventions as ordered 4. Encourage independent activity per tolerance 5. Maintain proper body alignment 6. Perform active/passive ROM as tolerated/ordered 7. Coordinate activities to conserve energy 8. Reposition patient 9. Ensure adequate rest/sleep time Outcome: Progressing Note: Evaluation of progress towards goal: assist with OOB activity using walker Problem: Communication Impairment Goal: Ability to express needs and understand communication Description: INTERVENTIONS 1. Assess patient's communication skills and ability to understand information 2. Provide alternate method of communication if needed i.e. ipad, sign board, pen/paper 3. Collaborate with Speech Therapy to develop effective communication strategies 4. Include patient/patient personal banking representative in decisions related to communication Outcome: Progressing Note: Evaluation of progress towards goal: [place], speak loudly and understands Problem: Potential for Aspiration Goal: Patient's risk of aspiration is minimized Description: INTERVENTIONS 1. Assess and monitor vital signs, respiratory status, and labs (WBC) 2. Monitor for signs of aspiration (tachypnea, cough, rales, wheezing, cyanosis, fever) 3. Assess and monitor patient's ability to swallow 4. Place patient up in chair to eat if possible 5. Elevate head of bed 90 degrees to eat if unable to get patient up into chair 6. Supervise patient during oral intake 7. Instruct patient to take small bites 8. Instruct patient to take small single sips when taking liquids 9. Follow patient-specific strategies generated by speech pathologist 10. Complete bedside swallow screen if appropriate and take actions as indicated. 11. Administer prescribed medications and monitor effects Outcome: Progressing Note: Evaluation of progress towards goal: aspiration precautions observed; tolerating regular diet well Problem: Anxiety Goal: Anxiety is at manageable level Description: Patient's goal is: INTERVENTIONS 1. Assess and monitor patient's anxiety level 2. Monitor for signs and symptoms of anxiety both physical and emotional (heart palpitations, chest pain, shortness of breath, headaches, nausea, feeling jumpy, restlessness, irritable, apprehensive) 3. Reorient/orient patient to unit/surroundings 4. Explain treatment plan 5. Explain tests/procedures prior to initiation 6. Encourage participation in care 7. Encourage verbalization of concerns/fears 8. Assess coping mechanisms 9. Assist in developing anxiety-reducing skills 10. Administer complimentary therapies 11. Manage patient's environment 12. Limit or eliminate stimulants such as caffeine and nicotine 13. Collaborate with ancillary departments 14. Include patient/patient personal banking representative in decisions related to anxiety Outcome: Progressing Note: Evaluation of progress towards goal: no issues noted Problem: Inadequate Coping Goal: Demonstrates and verbalizes ability to cope effectively Description: Patient's goal is: INTERVENTIONS 1. Patient is able to verbalize feelings related to emotional state 2. Encourage verbalization of feelings, perceptions, fears, stressors, loss of loved ones 3. Encourage verbalization of problems out of their control 4. Encourage participation in care and self management 5. Inform patient of all treatment/care prior to providing care 6. Collaborate with pastoral/spiritual care, social scientist, mental health counselor as needed. 7. Instruct patient on diversional activities such as physical activity, distraction, and deep breathing exercises to assist with coping 8. Involve patient's personal banking representative in care Outcome: Progressing Note: Evaluation of progress towards goal: no issues noted Problem: Potential for Inadequate Tissue Perfusion - Venous Goal: Tissue perfusion is adequate - venous Description: Patient's goal is: INTERVENTIONS 1. Assess and monitor skin color and temperature, skin integrity, pulses, capillary refill, edema, pain in extremities and Homans' sign 2. Monitor for signs and symptoms (dyspnea, tachypnea, and tachycardia) 3. Encourage ambulation/activity per patient's tolerance and physician order 4. Elevate feet when in chair 5. Encourage patient to do ankle pump exercises 6. Apply anti-embolism stockings/devices as ordered Outcome: Progressing Note: Evaluation of progress towards goal: no issues noted Problem: Self Care Deficit Goal: Return ADL status to a safe level of function Description: Patient's goal is: INTERVENTIONS 1. Administer medication as ordered 2. Assess ADL deficits and provide assistive devices as needed 3. Obtain PT/OT consults as needed 4. Assist and instruct patient to increase activity and self care as tolerated Outcome: Progressing Note: Evaluation of progress towards goal: [place] at DC Problem: Moderate - High Risk Fall Score Description: Valenzuela Fall Score of =/> 25 or indicated by [facility] Assessment Goal: Patient should be free from fall Description: Interventions: 1. [place] to environment 2. Hourly rounds addressing the 4 P's (Pain, Positioning, Possessions, Potty) 3. Clear area of hazards (spills, clutter, electrical cords, unnecessary equipment) 4. Place equipment (bed & TV controls, call light, phone, urinal) within reach 5. Encourage patient to wear glasses and hearing aides as appropriate 6. Maintain bed in lowest position 7. Lock wheels on bed/wheelchair 8. Provide adequate lighting, including night light 9. Assess need for additional bedding, food/fluids, pain med's prior to sleep/routinely 10. Provide gripper slippers or personal non-skid footwear 11. Teach patient and patient personal banking representative to maintain environment for safety and engage in all aspects of fall prevention program 12. Remind patient to call for help before getting out of bed 13. Initiate bed/chair/exit alarms supportive devices as appropriate, (chair wedge, no-skid floor mat, raised edge mattress, hip protectors) 14. Locate patient bed assignment for optimal visualization 15. Evaluate and identify Safe Patient Handling Equipment needs 16. Provide supervision when out of bed or chair 17. Utilize gait belt as needed to assist with ambulation 18. Place adaptive equipment (cane, walker) within reach 19. Request patient personal banking representative bring adaptive equipment/mobility aids from home or obtain and provide as needed 20. Consult pharmacy regarding effects of med's affecting mobility, cognition, and alternatives 21. Obtain physician order for PT if risk factors associated with mobility are present 22. Obtain physician order for OT as appropriate 23. Utilize diversional activities 24. Educate patient and patient personal banking representative how to maintain a safe environment during visitation times (notify nurse prior to leaving bedside) 25. Consider appropriateness of medical or non-biomedical electronics technician 26. Set up voiding schedule as appropriate (every 2 hours) Outcome: Progressing Note: Evaluation of progress towards goal: no falls; syncopal episode per notes 06/21; up with assist only; high fall risk - maintain precautions [facility] 06-22-2025 Progress note Formatting of t his note might be different from the original. DISCHARGE PLANNING NOTE Prior Auth approved for admission to : [facility] (P# ; F# ) Approval # [id number] Valid for Dates: 06/22/2025 - 06/28/2025 [facility] 06-22-2025 Progress note Formatting of t his note might be different from the original. DISCHARGE PLANNING NOTE Prior auth submitted to: [employer] Via: Availity On behalf of : [facility] (P# ; F# ) Ref# [id number] [facility] 06-22-2025 Progress note Formatting of t his note might be different from the original. DISCHARGE PLANNING NOTE Case discussed in daily transition rounds and chart reviewed by CN. Discharge Plan remains: [facility]. [facility] accepting referral. Social work contacted to inform of above and she was pleased with the news. is looking for patient's SSN. Social work task [facility] to start precert. CN will continue to follow and is available should any further needs arise. - CHARLES LEE 06/22/25 10:15 AM Insurance approved SNF stay. Patient is tentatively discharged tomorrow. Social work sent a message to [facility] to inform of tentative discharge date. Social work contacted to inform of above and she is agreeable to transition plan. [facility]ENS started. - CHARLES LEE 06/22/25 2:54 PM [facility] 06-22-2025 Plan of care note Problem: Pain Goal: Patient goal is pain score less than 4, able to rest, and participant in treatment plan as appropriate Description: INTERVENTIONS: 1. Encourage patient or legal personal banking representative to report early pain and ask for pain medicine when needed 2. Assess pain using appropriate pain scale and include the scale used when documenting 3. Administer analgesics based on type and severity of pain and evaluate response within appropriate time frame 4. Implement non-pharmacological measures as appropriate and evaluate response 5. Consider cultural and social influences on pain and pain management 6. Notify LIP if interventions ineffective or patient reports new pain 7. Monitor vital signs including pulse ox, end-tidal CO2 based on pain intervention 8. Reassess pain per policy 9. Teach patient or legal personal banking representative interventions for comforting Outcome: Progressing Note: Evaluation of progress towards goal: Patient able to verbalize pain on his back. Prn pain medication administered per orders Problem: Safety Goal: Patient will be injury free during hospitalization Description: INTERVENTIONS: 1. Assess patient's risk for falls and implement fall prevention plan of care per policy 2. Provide and maintain a safe environment 3. Proper use of double Identifiers 4. Medication administration using the 5 rights 5. Hand hygiene 6. Specimens are labeled at the bedside 7. Instruct patient/ patient personal banking representative about use of safety devices 8. Include patient/ patient personal banking representative in decisions related to safety Outcome: Progressing Note: Evaluation of progress towards goal: Safety bundles maintained Problem: Infection Goal: Absence of infection during hospitalization Description: INTERVENTIONS 1. Assess and monitor for signs and symptoms of infection. 2. Monitor lab/diagnostic results. 3. Monitor all insertion sites i.e., indwelling lines, tubes and drains. 4. Monitor endotracheal (as able) and nasal secretions for changes in amount and color. 5. Administer medications as ordered. 6. Instruct and encourage patient and family to use good hand hygiene technique. 7. Identify and instruct patient/patient personal banking representative in use of appropriate isolation precautions for identified infection/symptoms. 8. Provide and discuss with patient/patient personal banking representative on educational MDRO sheet. 9. Encourage and monitor nutritional status daily and consult water commissioner if indicated. 10. Implement neutropenic guidelines as needed. Outcome: Progressing Note: Evaluation of progress towards goal: Pt has no s/s of infection, standard precaution maintained Problem: Knowledge Deficit Goal: Patient/patient personal banking representative demonstrates understanding of disease process, treatment plan, medications, and discharge instructions Description: INTERVENTIONS 1. Complete learning assessment and assess knowledge base 2. Provide teaching at level of understanding 3. Provide teaching via preferred learning method(s) Outcome: Progressing Note: Evaluation of progress towards goal: Patient educated on his disease process, treatment and plan of care. Verbalized understanding Problem: Discharge Planning Goal: Discharge to post-acute care, other facility, or home with appropriate resources Description: Patient's goal is: INTERVENTIONS 1. Conduct assessment to determine patient/family and health care team treatment goals, and need for post-acute services based on payer coverage, community resources, and patient preferences, and barriers to discharge 2. Coordinate with Social work, Care Navigation, and Utilization Review to arrange appropriate level of services according to patient's needs based on patient preference and payer coverage in collaboration with the physician and health care team 3. Address psychosocial, clinical, and financial barriers to discharge as identified in assessment in conjunction with the patient/family and health care team 4. Consult appropriate ancillary services (i.e.. PT/OT/ST, etc) as needed 5. Communicate with and update the patient/family, physician, and health care team regarding progress on the discharge plan 6. Identify discharge learning needs (meds, wound care, etc). 7. Arrange for needed discharge transportation as appropriate Outcome: Progressing Note: Evaluation of progress towards goal: in process Problem: Potential for Compromised Skin Integrity Goal: Skin integrity is maintained or improved Description: Patient's goal is: INTERVENTIONS 1. Perform initial skin assessment on admission and as needed 2. Turn patient every 2 hours and PRN 3. Relieve pressure to bony prominences 4. Avoid shearing 5. Keep skin clean and dry 6. Alternate a full bath with partial baths for elderly 7. Apply lotion/moisturizer on skin 8. Monitor patient's hygiene practices 9. Float heels 10. Collaborate with interdisciplinary team and initiate plans and interventions as needed Outcome: Progressing Note: Evaluation of progress towards goal: Patient skin is dry and intact. Patient able to turn self in bed Goal: Patient's nutritional intake is adequate Description: Patient's goal is: INTERVENTIONS 1. Assess and monitor food intake and supplements, patient food preferences, nausea, vomiting, labs, oral cavity (gums, teeth, tongue, mucosa), proper denture fit, and cultural beliefs 2. Monitor for signs of hypoglycemia and hyperglycemia 3. Collaborate with interdisciplinary team and initiate plan and interventions as ordered 4. Monitor patient's weight 5. Assist patient with meals/food selection 6. Assist patient with eating 7. Allow adequate time for meals 8. Provide pleasant environment during mealtime 9. Increase social contact during mealtimes 10. Plan activities to conserve energy 11. Encourage/perform oral hygiene as appropriate 12. Encourage patient to take dietary supplement as ordered 13. Collaborate with clinical water commissioner 14. Include patient/ patient's personal banking representative in decisions related to nutrition Outcome: Progressing Note: Evaluation of progress towards goal: nutrition is adequate. Problem: Urinary Incontinence Goal: Perineal skin integrity is maintained or improved Description: INTERVENTIONS 1. Assess genitourinary system, perineal skin, labs (urinalysis), and history of incontinence to include past management, aggravating, and alleviating factors 2. Keep skin clean and dry 3. Apply skin protectant 4. Develop skin care regimen 5. Provide privacy when changing patients incontinence device to maintain their dignity 6. Consider placing an indwelling catheter 7. Collaborate with interdisciplinary team and initiate plans and interventions as needed Outcome: Progressing Note: Evaluation of progress towards goal: Patient is continent of urine, uses a urinal with assist Problem: Neurological Deficit Goal: Neurological status is stable or improving Description: Patient's goal is: INTERVENTIONS 1. Complete Neurological assessment as indicated/ordered 2. Initiate measures to prevent increased intracranial pressure 3. Monitor and assess patient's level of consciousness, motor function, sensory function, and level of assistance needed for ADLs 4. Monitor and report changes from baseline 5. Maintain blood pressure and fluid volume within ordered parameters to optimize cerebral perfusion and minimize risk of hemorrhage 6. Monitor labs and diagnostic tests 7. Administer anti-seizure medications as ordered 8. Maintain airway, patient safety and administer oxygen as ordered 9. Monitor patient for seizure activity, document and report duration and description of seizure to LIP 10. If seizure occurs, turn patient to side and suction secretions as needed 11. Reorient patient post seizure 12. Seizure pads on all 4 side rails 13. Instruct patient/family to notify RN of any seizure activity 14. Instruct patient/family to call for assistance with activity based on assessment 15. Utilize bleeding precautions if thrombolytic given Outcome: Progressing Note: Evaluation of progress towards goal: neurological assessment done and documented every 4 hours as per the orders Problem: Activity Intolerance/Impaired Mobility Goal: Mobility/activity is maintained at optimum level for patient Description: Patient's goal is: INTERVENTIONS 1. Assess and monitor patient barriers to mobility and need for assistive/adaptive devices 2. Assess patient's emotional response to limitations 3. Collaborate with interdisciplinary teams and initiate plans and interventions as ordered 4. Encourage independent activity per tolerance 5. Maintain proper body alignment 6. Perform active/passive ROM as tolerated/ordered 7. Coordinate activities to conserve energy 8. Reposition patient 9. Ensure adequate rest/sleep time Outcome: Progressing Note: Evaluation of progress towards goal: Problem: Communication Impairment Goal: Ability to express needs and understand communication Description: INTERVENTIONS 1. Assess patient's communication skills and ability to understand information 2. Provide alternate method of communication if needed i.e. ipad, sign board, pen/paper 3. Collaborate with Speech Therapy to develop effective communication strategies 4. Include patient/patient personal banking representative in decisions related to communication Outcome: Progressing Note: Evaluation of progress towards goal: pt is alert and oriented to self, able to communicate with come confusion Problem: Potential for Aspiration Goal: Patient's risk of aspiration is minimized Description: INTERVENTIONS 1. Assess and monitor vital signs, respiratory status, and labs (WBC) 2. Monitor for signs of aspiration (tachypnea, cough, rales, wheezing, cyanosis, fever) 3. Assess and monitor patient's ability to swallow 4. Place patient up in chair to eat if possible 5. Elevate head of bed 90 degrees to eat if unable to get patient up into chair 6. Supervise patient during oral intake 7. Instruct patient to take small bites 8. Instruct patient to take small single sips when taking liquids 9. Follow patient-specific strategies generated by speech pathologist 10. Complete bedside swallow screen if appropriate and take actions as indicated. 11. Administer prescribed medications and monitor effects Outcome: Progressing Note: Evaluation of progress towards goal: Problem: Anxiety Goal: Anxiety is at manageable level Description: Patient's goal is: INTERVENTIONS 1. Assess and monitor patient's anxiety level 2. Monitor for signs and symptoms of anxiety both physical and emotional (heart palpitations, chest pain, shortness of breath, headaches, nausea, feeling jumpy, restlessness, irritable, apprehensive) 3. Reorient/orient patient to unit/surroundings 4. Explain treatment plan 5. Explain tests/procedures prior to initiation 6. Encourage participation in care 7. Encourage verbalization of concerns/fears 8. Assess coping mechanisms 9. Assist in developing anxiety-reducing skills 10. Administer complimentary therapies 11. Manage patient's environment 12. Limit or eliminate stimulants such as caffeine and nicotine 13. Collaborate with ancillary departments 14. Include patient/patient personal banking representative in decisions related to anxiety Outcome: Progressing Note: Evaluation of progress towards goal: Problem: Inadequate Coping Goal: Demonstrates and verbalizes ability to cope effectively Description: Patient's goal is: INTERVENTIONS 1. Patient is able to verbalize feelings related to emotional state 2. Encourage verbalization of feelings, perceptions, fears, stressors, loss of loved ones 3. Encourage verbalization of problems out of their control 4. Encourage participation in care and self management 5. Inform patient of all treatment/care prior to providing care 6. Collaborate with pastoral/spiritual care, social scientist, mental health counselor as needed. 7. Instruct patient on diversional activities such as physical activity, distraction, and deep breathing exercises to assist with coping 8. Involve patient's personal banking representative in care Outcome: Progressing Note: Evaluation of progress towards goal: no issues Problem: Potential for Inadequate Tissue Perfusion - Venous Goal: Tissue perfusion is adequate - venous Description: Patient's goal is: INTERVENTIONS 1. Assess and monitor skin color and temperature, skin integrity, pulses, capillary refill, edema, pain in extremities and Homans' sign 2. Monitor for signs and symptoms (dyspnea, tachypnea, and tachycardia) 3. Encourage ambulation/activity per patient's tolerance and physician order 4. Elevate feet when in chair 5. Encourage patient to do ankle pump exercises 6. Apply anti-embolism stockings/devices as ordered Outcome: Progressing Note: Evaluation of progress towards goal: Problem: Self Care Deficit Goal: Return ADL status to a safe level of function Description: Patient's goal is: INTERVENTIONS 1. Administer medication as ordered 2. Assess ADL deficits and provide assistive devices as needed 3. Obtain PT/OT consults as needed 4. Assist and instruct patient to increase activity and self care as tolerated Outcome: Progressing Note: Evaluation of progress towards goal: Problem: Moderate - High Risk Fall Score Description: Valenzuela Fall Score of =/> 25 or indicated by [facility] Assessment Goal: Patient should be free from fall Description: Interventions: 1. [place] to environment 2. Hourly rounds addressing the 4 P's (Pain, Positioning, Possessions, Potty) 3. Clear area of hazards (spills, clutter, electrical cords, unnecessary equipment) 4. Place equipment (bed & TV controls, call light, phone, urinal) within reach 5. Encourage patient to wear glasses and hearing aides as appropriate 6. Maintain bed in lowest position 7. Lock wheels on bed/wheelchair 8. Provide adequate lighting, including night light 9. Assess need for additional bedding, food/fluids, pain med's prior to sleep/routinely 10. Provide gripper slippers or personal non-skid footwear 11. Teach patient and patient personal banking representative to maintain environment for safety and engage in all aspects of fall prevention program 12. Remind patient to call for help before getting out of bed 13. Initiate bed/chair/exit alarms supportive devices as appropriate, (chair wedge, no-skid floor mat, raised edge mattress, hip protectors) 14. Locate patient bed assignment for optimal visualization 15. Evaluate and identify Safe Patient Handling Equipment needs 16. Provide supervision when out of bed or chair 17. Utilize gait belt as needed to assist with ambulation 18. Place adaptive equipment (cane, walker) within reach 19. Request patient personal banking representative bring adaptive equipment/mobility aids from home or obtain and provide as needed 20. Consult pharmacy regarding effects of med's affecting mobility, cognition, and alternatives 21. Obtain physician order for PT if risk factors associated with mobility are present 22. Obtain physician order for OT as appropriate 23. Utilize diversional activities 24. Educate patient and patient personal banking representative how to maintain a safe environment during visitation times (notify nurse prior to leaving bedside) 25. Consider appropriateness of medical or non-biomedical electronics technician 26. Set up voiding schedule as appropriate (every 2 hours) Outcome: Progressing Note: Evaluation of progress towards goal: Fall bundles maintained [facility] 06-21-2025 Plan of care note Problem: Knowledge Deficit Goal: Patient/patient personal banking representative demonstrates understanding of disease process, treatment plan, medications, and discharge instructions Description: INTERVENTIONS 1. Complete learning assessment and assess knowledge base 2. Provide teaching at level of understanding 3. Provide teaching via preferred learning method(s) Outcome: Not Progressing Note: Evaluation of progress towards goal: confusion, no signs of understanding Problem: Neurological Deficit Goal: Neurological status is stable or improving Description: Patient's goal is: INTERVENTIONS 1. Complete Neurological assessment as indicated/ordered 2. Initiate measures to prevent increased intracranial pressure 3. Monitor and assess patient's level of consciousness, motor function, sensory function, and level of assistance needed for ADLs 4. Monitor and report changes from baseline 5. Maintain blood pressure and fluid volume within ordered parameters to optimize cerebral perfusion and minimize risk of hemorrhage 6. Monitor labs and diagnostic tests 7. Administer anti-seizure medications as ordered 8. Maintain airway, patient safety and administer oxygen as ordered 9. Monitor patient for seizure activity, document and report duration and description of seizure to LIP 10. If seizure occurs, turn patient to side and suction secretions as needed 11. Reorient patient post seizure 12. Seizure pads on all 4 side rails 13. Instruct patient/family to notify RN of any seizure activity 14. Instruct patient/family to call for assistance with activity based on assessment 15. Utilize bleeding precautions if thrombolytic given Outcome: Not Progressing Note: Evaluation of progress towards goal: confused, syncopal episode this am on toilet Problem: Self Care Deficit Goal: Return ADL status to a safe level of function Description: Patient's goal is: INTERVENTIONS 1. Administer medication as ordered 2. Assess ADL deficits and provide assistive devices as needed 3. Obtain PT/OT consults as needed 4. Assist and instruct patient to increase activity and self care as tolerated Outcome: Not Progressing Note: Evaluation of progress towards goal: needed fed at times this shift, total care for adl's Problem: Knowledge Deficit Goal: Patient/patient personal banking representative demonstrates understanding of disease process, treatment plan, medications, and discharge instructions Description: INTERVENTIONS 1. Complete learning assessment and assess knowledge base 2. Provide teaching at level of understanding 3. Provide teaching via preferred learning method(s) Outcome: Not Progressing Note: Evaluation of progress towards goal: confusion, no signs of understanding Problem: Neurological Deficit Goal: Neurological status is stable or improving Description: Patient's goal is: INTERVENTIONS 1. Complete Neurological assessment as indicated/ordered 2. Initiate measures to prevent increased intracranial pressure 3. Monitor and assess patient's level of consciousness, motor function, sensory function, and level of assistance needed for ADLs 4. Monitor and report changes from baseline 5. Maintain blood pressure and fluid volume within ordered parameters to optimize cerebral perfusion and minimize risk of hemorrhage 6. Monitor labs and diagnostic tests 7. Administer anti-seizure medications as ordered 8. Maintain airway, patient safety and administer oxygen as ordered 9. Monitor patient for seizure activity, document and report duration and description of seizure to LIP 10. If seizure occurs, turn patient to side and suction secretions as needed 11. Reorient patient post seizure 12. Seizure pads on all 4 side rails 13. Instruct patient/family to notify RN of any seizure activity 14. Instruct patient/family to call for assistance with activity based on assessment 15. Utilize bleeding precautions if thrombolytic given Outcome: Not Progressing Note: Evaluation of progress towards goal: confused, syncopal episode this am on toilet Problem: Self Care Deficit Goal: Return ADL status to a safe level of function Description: Patient's goal is: INTERVENTIONS 1. Administer medication as ordered 2. Assess ADL deficits and provide assistive devices as needed 3. Obtain PT/OT consults as needed 4. Assist and instruct patient to increase activity and self care as tolerated Outcome: Not Progressing Note: Evaluation of progress towards goal: needed fed at times this shift, total care for adl's Problem: Pain Goal: Patient goal is pain score less than 4, able to rest, and participant in treatment plan as appropriate Description: INTERVENTIONS: 1. Encourage patient or legal personal banking representative to report early pain and ask for pain medicine when needed 2. Assess pain using appropriate pain scale and include the scale used when documenting 3. Administer analgesics based on type and severity of pain and evaluate response within appropriate time frame 4. Implement non-pharmacological measures as appropriate and evaluate response 5. Consider cultural and social influences on pain and pain management 6. Notify LIP if interventions ineffective or patient reports new pain 7. Monitor vital signs including pulse ox, end-tidal CO2 based on pain intervention 8. Reassess pain per policy 9. Teach patient or legal personal banking representative interventions for comforting Outcome: Progressing Note: Evaluation of progress towards goal: denies, lidocaine patch to low back per order, continue to monitor and provide comfort measures Problem: Safety Goal: Patient will be injury free during hospitalization Description: INTERVENTIONS: 1. Assess patient's risk for falls and implement fall prevention plan of care per policy 2. Provide and maintain a safe environment 3. Proper use of double Identifiers 4. Medication administration using the 5 rights 5. Hand hygiene 6. Specimens are labeled at the bedside 7. Instruct patient/ patient personal banking representative about use of safety devices 8. Include patient/ patient personal banking representative in decisions related to safety Outcome: Progressing Note: Evaluation of progress towards goal: injury free this shift, safety measures maintained Problem: Infection Goal: Absence of infection during hospitalization Description: INTERVENTIONS 1. Assess and monitor for signs and symptoms of infection. 2. Monitor lab/diagnostic results. 3. Monitor all insertion sites i.e., indwelling lines, tubes and drains. 4. Monitor endotracheal (as able) and nasal secretions for changes in amount and color. 5. Administer medications as ordered. 6. Instruct and encourage patient and family to use good hand hygiene technique. 7. Identify and instruct patient/patient personal banking representative in use of appropriate isolation precautions for identified infection/symptoms. 8. Provide and discuss with patient/patient personal banking representative on educational MDRO sheet. 9. Encourage and monitor nutritional status daily and consult water commissioner if indicated. 10. Implement neutropenic guidelines as needed. Outcome: Progressing Note: Evaluation of progress towards goal: WBC wnl, continue to monitor Problem: Discharge Planning Goal: Discharge to post-acute care, other facility, or home with appropriate resources Description: Patient's goal is: INTERVENTIONS 1. Conduct assessment to determine patient/family and health care team treatment goals, and need for post-acute services based on payer coverage, community resources, and patient preferences, and barriers to discharge 2. Coordinate with Social work, Care Navigation, and Utilization Review to arrange appropriate level of services according to patient's needs based on patient preference and payer coverage in collaboration with the physician and health care team 3. Address psychosocial, clinical, and financial barriers to discharge as identified in assessment in conjunction with the patient/family and health care team 4. Consult appropriate ancillary services (i.e.. PT/OT/ST, etc) as needed 5. Communicate with and update the patient/family, physician, and health care team regarding progress on the discharge plan 6. Identify discharge learning needs (meds, wound care, etc). 7. Arrange for needed discharge transportation as appropriate Outcome: Progressing Note: Evaluation of progress towards goal: in progress for snf Problem: Potential for Compromised Skin Integrity Goal: Skin integrity is maintained or improved Description: Patient's goal is: INTERVENTIONS 1. Perform initial skin assessment on admission and as needed 2. Turn patient every 2 hours and PRN 3. Relieve pressure to bony prominences 4. Avoid shearing 5. Keep skin clean and dry 6. Alternate a full bath with partial baths for elderly 7. Apply lotion/moisturizer on skin 8. Monitor patient's hygiene practices 9. Float heels 10. Collaborate with interdisciplinary team and initiate plans and interventions as needed Outcome: Progressing Note: Evaluation of progress towards goal: skin intact, moisture management due to incontinent Goal: Patient's nutritional intake is adequate Description: Patient's goal is: INTERVENTIONS 1. Assess and monitor food intake and supplements, patient food preferences, nausea, vomiting, labs, oral cavity (gums, teeth, tongue, mucosa), proper denture fit, and cultural beliefs 2. Monitor for signs of hypoglycemia and hyperglycemia 3. Collaborate with interdisciplinary team and initiate plan and interventions as ordered 4. Monitor patient's weight 5. Assist patient with meals/food selection 6. Assist patient with eating 7. Allow adequate time for meals 8. Provide pleasant environment during mealtime 9. Increase social contact during mealtimes 10. Plan activities to conserve energy 11. Encourage/perform oral hygiene as appropriate 12. Encourage patient to take dietary supplement as ordered 13. Collaborate with clinical water commissioner 14. Include patient/ patient's personal banking representative in decisions related to nutrition Outcome: Progressing Note: Evaluation of progress towards goal: good intake Problem: Urinary Incontinence Goal: Perineal skin integrity is maintained or improved Description: INTERVENTIONS 1. Assess genitourinary system, perineal skin, labs (urinalysis), and history of incontinence to include past management, aggravating, and alleviating factors 2. Keep skin clean and dry 3. Apply skin protectant 4. Develop skin care regimen 5. Provide privacy when changing patients incontinence device to maintain their dignity 6. Consider placing an indwelling catheter 7. Collaborate with interdisciplinary team and initiate plans and interventions as needed Outcome: Progressing Note: Evaluation of progress towards goal: continues to have incontinence, skin intact Problem: Activity Intolerance/Impaired Mobility Goal: Mobility/activity is maintained at optimum level for patient Description: Patient's goal is: INTERVENTIONS 1. Assess and monitor patient barriers to mobility and need for assistive/adaptive devices 2. Assess patient's emotional response to limitations 3. Collaborate with interdisciplinary teams and initiate plans and interventions as ordered 4. Encourage independent activity per tolerance 5. Maintain proper body alignment 6. Perform active/passive ROM as tolerated/ordered 7. Coordinate activities to conserve energy 8. Reposition patient 9. Ensure adequate rest/sleep time Outcome: Progressing Note: Evaluation of progress towards goal: 2 assist or theresa steady to transfer Problem: Communication Impairment Goal: Ability to express needs and understand communication Description: INTERVENTIONS 1. Assess patient's communication skills and ability to understand information 2. Provide alternate method of communication if needed i.e. ipad, sign board, pen/paper 3. Collaborate with Speech Therapy to develop effective communication strategies 4. Include patient/patient personal banking representative in decisions related to communication Outcome: Progressing Note: Evaluation of progress towards goal: confused but able to express self Problem: Potential for Aspiration Goal: Patient's risk of aspiration is minimized Description: INTERVENTIONS 1. Assess and monitor vital signs, respiratory status, and labs (WBC) 2. Monitor for signs of aspiration (tachypnea, cough, rales, wheezing, cyanosis, fever) 3. Assess and monitor patient's ability to swallow 4. Place patient up in chair to eat if possible 5. Elevate head of bed 90 degrees to eat if unable to get patient up into chair 6. Supervise patient during oral intake 7. Instruct patient to take small bites 8. Instruct patient to take small single sips when taking liquids 9. Follow patient-specific strategies generated by speech pathologist 10. Complete bedside swallow screen if appropriate and take actions as indicated. 11. Administer prescribed medications and monitor effects Outcome: Progressing Note: Evaluation of progress towards goal: aspiration precautions maintianed Problem: Anxiety Goal: Anxiety is at manageable level Description: Patient's goal is: INTERVENTIONS 1. Assess and monitor patient's anxiety level 2. Monitor for signs and symptoms of anxiety both physical and emotional (heart palpitations, chest pain, shortness of breath, headaches, nausea, feeling jumpy, restlessness, irritable, apprehensive) 3. Reorient/orient patient to unit/surroundings 4. Explain treatment plan 5. Explain tests/procedures prior to initiation 6. Encourage participation in care 7. Encourage verbalization of concerns/fears 8. Assess coping mechanisms 9. Assist in developing anxiety-reducing skills 10. Administer complimentary therapies 11. Manage patient's environment 12. Limit or eliminate stimulants such as caffeine and nicotine 13. Collaborate with ancillary departments 14. Include patient/patient personal banking representative in decisions related to anxiety Outcome: Progressing Note: Evaluation of progress towards goal: voices feelings and needs, calm and cooperative this day Problem: Inadequate Coping Goal: Demonstrates and verbalizes ability to cope effectively Description: Patient's goal is: INTERVENTIONS 1. Patient is able to verbalize feelings related to emotional state 2. Encourage verbalization of feelings, perceptions, fears, stressors, loss of loved ones 3. Encourage verbalization of problems out of their control 4. Encourage participation in care and self management 5. Inform patient of all treatment/care prior to providing care 6. Collaborate with pastoral/spiritual care, social scientist, mental health counselor as needed. 7. Instruct patient on diversional activities such as physical activity, distraction, and deep breathing exercises to assist with coping 8. Involve patient's personal banking representative in care Outcome: Progressing Note: Evaluation of progress towards goal: no issues Problem: Potential for Inadequate Tissue Perfusion - Venous Goal: Tissue perfusion is adequate - venous Description: Patient's goal is: INTERVENTIONS 1. Assess and monitor skin color and temperature, skin integrity, pulses, capillary refill, edema, pain in extremities and Homans' sign 2. Monitor for signs and symptoms (dyspnea, tachypnea, and tachycardia) 3. Encourage ambulation/activity per patient's tolerance and physician order 4. Elevate feet when in chair 5. Encourage patient to do ankle pump exercises 6. Apply anti-embolism stockings/devices as ordered Outcome: Progressing Note: Evaluation of progress towards goal: no issues Problem: Moderate - High Risk Fall Score Description: Valenzuela Fall Score of =/> 25 or indicated by [facility] Assessment Goal: Patient should be free from fall Description: Interventions: 1. [place] to environment 2. Hourly rounds addressing the 4 P's (Pain, Positioning, Possessions, Potty) 3. Clear area of hazards (spills, clutter, electrical cords, unnecessary equipment) 4. Place equipment (bed & TV controls, call light, phone, urinal) within reach 5. Encourage patient to wear glasses and hearing aides as appropriate 6. Maintain bed in lowest position 7. Lock wheels on bed/wheelchair 8. Provide adequate lighting, including night light 9. Assess need for additional bedding, food/fluids, pain med's prior to sleep/routinely 10. Provide gripper slippers or personal non-skid footwear 11. Teach patient and patient personal banking representative to maintain environment for safety and engage in all aspects of fall prevention program 12. Remind patient to call for help before getting out of bed 13. Initiate bed/chair/exit alarms supportive devices as appropriate, (chair wedge, no-skid floor mat, raised edge mattress, hip protectors) 14. Locate patient bed assignment for optimal visualization 15. Evaluate and identify Safe Patient Handling Equipment needs 16. Provide supervision when out of bed or chair 17. Utilize gait belt as needed to assist with ambulation 18. Place adaptive equipment (cane, walker) within reach 19. Request patient personal banking representative bring adaptive equipment/mobility aids from home or obtain and provide as needed 20. Consult pharmacy regarding effects of med's affecting mobility, cognition, and alternatives 21. Obtain physician order for PT if risk factors associated with mobility are present 22. Obtain physician order for OT as appropriate 23. Utilize diversional activities 24. Educate patient and patient personal banking representative how to maintain a safe environment during visitation times (notify nurse prior to leaving bedside) 25. Consider appropriateness of medical or non-biomedical electronics technician 26. Set up voiding schedule as appropriate (every 2 hours) Outcome: Progressing Note: Evaluation of progress towards goal: free of fall this shift Problem: Neurological Deficit Goal: Neurological status is stable or improving Description: Patient's goal is: INTERVENTIONS 1. Complete Neurological assessment as indicated/ordered 2. Initiate measures to prevent increased intracranial pressure 3. Monitor and assess patient's level of consciousness, motor function, sensory function, and level of assistance needed for ADLs 4. Monitor and report changes from baseline 5. Maintain blood pressure and fluid volume within ordered parameters to optimize cerebral perfusion and minimize risk of hemorrhage 6. Monitor labs and diagnostic tests 7. Administer anti-seizure medications as ordered 8. Maintain airway, patient safety and administer oxygen as ordered 9. Monitor patient for seizure activity, document and report duration and description of seizure to LIP 10. If seizure occurs, turn patient to side and suction secretions as needed 11. Reorient patient post seizure 12. Seizure pads on all 4 side rails 13. Instruct patient/family to notify RN of any seizure activity 14. Instruct patient/family to call for assistance with activity based on assessment 15. Utilize bleeding precautions if thrombolytic given Outcome: Not Progressing Note: Evaluation of progress towards goal: confused, syncopal episode this am on toilet Problem: Self Care Deficit Goal: Return ADL status to a safe level of function Description: Patient's goal is: INTERVENTIONS 1. Administer medication as ordered 2. Assess ADL deficits and provide assistive devices as needed 3. Obtain PT/OT consults as needed 4. Assist and instruct patient to increase activity and self care as tolerated Outcome: Not Progressing Note: Evaluation of progress towards goal: needed fed at times this shift, total care for adl's Problem: Pain Goal: Patient goal is pain score less than 4, able to rest, and participant in treatment plan as appropriate Description: INTERVENTIONS: 1. Encourage patient or legal personal banking representative to report early pain and ask for pain medicine when needed 2. Assess pain using appropriate pain scale and include the scale used when documenting 3. Administer analgesics based on type and severity of pain and evaluate response within appropriate time frame 4. Implement non-pharmacological measures as appropriate and evaluate response 5. Consider cultural and social influences on pain and pain management 6. Notify LIP if interventions ineffective or patient reports new pain 7. Monitor vital signs including pulse ox, end-tidal CO2 based on pain intervention 8. Reassess pain per policy 9. Teach patient or legal personal banking representative interventions for comforting Outcome: Progressing Note: Evaluation of progress towards goal: denies, lidocaine patch to low back per order, continue to monitor and provide comfort measures Problem: Safety Goal: Patient will be injury free during hospitalization Description: INTERVENTIONS: 1. Assess patient's risk for falls and implement fall prevention plan of care per policy 2. Provide and maintain a safe environment 3. Proper use of double Identifiers 4. Medication administration using the 5 rights 5. Hand hygiene 6. Specimens are labeled at the bedside 7. Instruct patient/ patient personal banking representative about use of safety devices 8. Include patient/ patient personal banking representative in decisions related to safety Outcome: Progressing Note: Evaluation of progress towards goal: injury free this shift, safety measures maintained Problem: Infection Goal: Absence of infection during hospitalization Description: INTERVENTIONS 1. Assess and monitor for signs and symptoms of infection. 2. Monitor lab/diagnostic results. 3. Monitor all insertion sites i.e., indwelling lines, tubes and drains. 4. Monitor endotracheal (as able) and nasal secretions for changes in amount and color. 5. Administer medications as ordered. 6. Instruct and encourage patient and family to use good hand hygiene technique. 7. Identify and instruct patient/patient personal banking representative in use of appropriate isolation precautions for identified infection/symptoms. 8. Provide and discuss with patient/patient personal banking representative on educational MDRO sheet. 9. Encourage and monitor nutritional status daily and consult water commissioner if indicated. 10. Implement neutropenic guidelines as needed. Outcome: Progressing Note: Evaluation of progress towards goal: WBC wnl, continue to monitor Problem: Discharge Planning Goal: Discharge to post-acute care, other facility, or home with appropriate resources Description: Patient's goal is: INTERVENTIONS 1. Conduct assessment to determine patient/family and health care team treatment goals, and need for post-acute services based on payer coverage, community resources, and patient preferences, and barriers to discharge 2. Coordinate with Social work, Care Navigation, and Utilization Review to arrange appropriate level of services according to patient's needs based on patient preference and payer coverage in collaboration with the physician and health care team 3. Address psychosocial, clinical, and financial barriers to discharge as identified in assessment in conjunction with the patient/family and health care team 4. Consult appropriate ancillary services (i.e.. PT/OT/ST, etc) as needed 5. Communicate with and update the patient/family, physician, and health care team regarding progress on the discharge plan 6. Identify discharge learning needs (meds, wound care, etc). 7. Arrange for needed discharge transportation as appropriate Outcome: Progressing Note: Evaluation of progress towards goal: in progress for snf Problem: Potential for Compromised Skin Integrity Goal: Skin integrity is maintained or improved Description: Patient's goal is: INTERVENTIONS 1. Perform initial skin assessment on admission and as needed 2. Turn patient every 2 hours and PRN 3. Relieve pressure to bony prominences 4. Avoid shearing 5. Keep skin clean and dry 6. Alternate a full bath with partial baths for elderly 7. Apply lotion/moisturizer on skin 8. Monitor patient's hygiene practices 9. Float heels 10. Collaborate with interdisciplinary team and initiate plans and interventions as needed Outcome: Progressing Note: Evaluation of progress towards goal: skin intact, moisture management due to incontinent Goal: Patient's nutritional intake is adequate Description: Patient's goal is: INTERVENTIONS 1. Assess and monitor food intake and supplements, patient food preferences, nausea, vomiting, labs, oral cavity (gums, teeth, tongue, mucosa), proper denture fit, and cultural beliefs 2. Monitor for signs of hypoglycemia and hyperglycemia 3. Collaborate with interdisciplinary team and initiate plan and interventions as ordered 4. Monitor patient's weight 5. Assist patient with meals/food selection 6. Assist patient with eating 7. Allow adequate time for meals 8. Provide pleasant environment during mealtime 9. Increase social contact during mealtimes 10. Plan activities to conserve energy 11. Encourage/perform oral hygiene as appropriate 12. Encourage patient to take dietary supplement as ordered 13. Collaborate with clinical water commissioner 14. Include patient/ patient's personal banking representative in decisions related to nutrition Outcome: Progressing Note: Evaluation of progress towards goal: good intake Problem: Urinary Incontinence Goal: Perineal skin integrity is maintained or improved Description: INTERVENTIONS 1. Assess genitourinary system, perineal skin, labs (urinalysis), and history of incontinence to include past management, aggravating, and alleviating factors 2. Keep skin clean and dry 3. Apply skin protectant 4. Develop skin care regimen 5. Provide privacy when changing patients incontinence device to maintain their dignity 6. Consider placing an indwelling catheter 7. Collaborate with interdisciplinary team and initiate plans and interventions as needed Outcome: Progressing Note: Evaluation of progress towards goal: continues to have incontinence, skin intact Problem: Activity Intolerance/Impaired Mobility Goal: Mobility/activity is maintained at optimum level for patient Description: Patient's goal is: INTERVENTIONS 1. Assess and monitor patient barriers to mobility and need for assistive/adaptive devices 2. Assess patient's emotional response to limitations 3. Collaborate with interdisciplinary teams and initiate plans and interventions as ordered 4. Encourage independent activity per tolerance 5. Maintain proper body alignment 6. Perform active/passive ROM as tolerated/ordered 7. Coordinate activities to conserve energy 8. Reposition patient 9. Ensure adequate rest/sleep time Outcome: Progressing Note: Evaluation of progress towards goal: 2 assist or theresa steady to transfer Problem: Communication Impairment Goal: Ability to express needs and understand communication Description: INTERVENTIONS 1. Assess patient's communication skills and ability to understand information 2. Provide alternate method of communication if needed i.e. ipad, sign board, pen/paper 3. Collaborate with Speech Therapy to develop effective communication strategies 4. Include patient/patient personal banking representative in decisions related to communication Outcome: Progressing Note: Evaluation of progress towards goal: confused but able to express self Problem: Potential for Aspiration Goal: Patient's risk of aspiration is minimized Description: INTERVENTIONS 1. Assess and monitor vital signs, respiratory status, and labs (WBC) 2. Monitor for signs of aspiration (tachypnea, cough, rales, wheezing, cyanosis, fever) 3. Assess and monitor patient's ability to swallow 4. Place patient up in chair to eat if possible 5. Elevate head of bed 90 degrees to eat if unable to get patient up into chair 6. Supervise patient during oral intake 7. Instruct patient to take small bites 8. Instruct patient to take small single sips when taking liquids 9. Follow patient-specific strategies generated by speech pathologist 10. Complete bedside swallow screen if appropriate and take actions as indicated. 11. Administer prescribed medications and monitor effects Outcome: Progressing Note: Evaluation of progress towards goal: aspiration precautions maintianed Problem: Anxiety Goal: Anxiety is at manageable level Description: Patient's goal is: INTERVENTIONS 1. Assess and monitor patient's anxiety level 2. Monitor for signs and symptoms of anxiety both physical and emotional (heart palpitations, chest pain, shortness of breath, headaches, nausea, feeling jumpy, restlessness, irritable, apprehensive) 3. Reorient/orient patient to unit/surroundings 4. Explain treatment plan 5. Explain tests/procedures prior to initiation 6. Encourage participation in care 7. Encourage verbalization of concerns/fears 8. Assess coping mechanisms 9. Assist in developing anxiety-reducing skills 10. Administer complimentary therapies 11. Manage patient's environment 12. Limit or eliminate stimulants such as caffeine and nicotine 13. Collaborate with ancillary departments 14. Include patient/patient personal banking representative in decisions related to anxiety Outcome: Progressing Note: Evaluation of progress towards goal: voices feelings and needs, calm and cooperative this day Problem: Inadequate Coping Goal: Demonstrates and verbalizes ability to cope effectively Description: Patient's goal is: INTERVENTIONS 1. Patient is able to verbalize feelings related to emotional state 2. Encourage verbalization of feelings, perceptions, fears, stressors, loss of loved ones 3. Encourage verbalization of problems out of their control 4. Encourage participation in care and self management 5. Inform patient of all treatment/care prior to providing care 6. Collaborate with pastoral/spiritual care, social scientist, mental health counselor as needed. 7. Instruct patient on diversional activities such as physical activity, distraction, and deep breathing exercises to assist with coping 8. Involve patient's personal banking representative in care Outcome: Progressing Note: Evaluation of progress towards goal: no issues Problem: Potential for Inadequate Tissue Perfusion - Venous Goal: Tissue perfusion is adequate - venous Description: Patient's goal is: INTERVENTIONS 1. Assess and monitor skin color and temperature, skin integrity, pulses, capillary refill, edema, pain in extremities and Homans' sign 2. Monitor for signs and symptoms (dyspnea, tachypnea, and tachycardia) 3. Encourage ambulation/activity per patient's tolerance and physician order 4. Elevate feet when in chair 5. Encourage patient to do ankle pump exercises 6. Apply anti-embolism stockings/devices as ordered Outcome: Progressing Note: Evaluation of progress towards goal: no issues Problem: Moderate - High Risk Fall Score Description: Valenzuela Fall Score of =/> 25 or indicated by [facility] Assessment Goal: Patient should be free from fall Description: Interventions: 1. [place] to environment 2. Hourly rounds addressing the 4 P's (Pain, Positioning, Possessions, Potty) 3. Clear area of hazards (spills, clutter, electrical cords, unnecessary equipment) 4. Place equipment (bed & TV controls, call light, phone, urinal) within reach 5. Encourage patient to wear glasses and hearing aides as appropriate 6. Maintain bed in lowest position 7. Lock wheels on bed/wheelchair 8. Provide adequate lighting, including night light 9. Assess need for additional bedding, food/fluids, pain med's prior to sleep/routinely 10. Provide gripper slippers or personal non-skid footwear 11. Teach patient and patient personal banking representative to maintain environment for safety and engage in all aspects of fall prevention program 12. Remind patient to call for help before getting out of bed 13. Initiate bed/chair/exit alarms supportive devices as appropriate, (chair wedge, no-skid floor mat, raised edge mattress, hip protectors) 14. Locate patient bed assignment for optimal visualization 15. Evaluate and identify Safe Patient Handling Equipment needs 16. Provide supervision when out of bed or chair 17. Utilize gait belt as needed to assist with ambulation 18. Place adaptive equipment (cane, walker) within reach 19. Request patient personal banking representative bring adaptive equipment/mobility aids from home or obtain and provide as needed 20. Consult pharmacy regarding effects of med's affecting mobility, cognition, and alternatives 21. Obtain physician order for PT if risk factors associated with mobility are present 22. Obtain physician order for OT as appropriate 23. Utilize diversional activities 24. Educate patient and patient personal banking representative how to maintain a safe environment during visitation times (notify nurse prior to leaving bedside) 25. Consider appropriateness of medical or non-biomedical electronics technician 26. Set up voiding schedule as appropriate (every 2 hours) Outcome: Progressing Note: Evaluation of progress towards goal: free of fall this shift Problem: Pain Goal: Patient goal is pain score less than 4, able to rest, and participant in treatment plan as appropriate Description: INTERVENTIONS: 1. Encourage patient or legal personal banking representative to report early pain and ask for pain medicine when needed 2. Assess pain using appropriate pain scale and include the scale used when documenting 3. Administer analgesics based on type and severity of pain and evaluate response within appropriate time frame 4. Implement non-pharmacological measures as appropriate and evaluate response 5. Consider cultural and social influences on pain and pain management 6. Notify LIP if interventions ineffective or patient reports new pain 7. Monitor vital signs including pulse ox, end-tidal CO2 based on pain intervention 8. Reassess pain per policy 9. Teach patient or legal personal banking representative interventions for comforting Outcome: Progressing Note: Evaluation of progress towards goal: denies, lidocaine patch to low back per order, continue to monitor and provide comfort measures Problem: Safety Goal: Patient will be injury free during hospitalization Description: INTERVENTIONS: 1. Assess patient's risk for falls and implement fall prevention plan of care per policy 2. Provide and maintain a safe environment 3. Proper use of double Identifiers 4. Medication administration using the 5 rights 5. Hand hygiene 6. Specimens are labeled at the bedside 7. Instruct patient/ patient personal banking representative about use of safety devices 8. Include patient/ patient personal banking representative in decisions related to safety Outcome: Progressing Note: Evaluation of progress towards goal: injury free this shift, safety measures maintained Problem: Safety Goal: Patient will be injury free during hospitalization Description: INTERVENTIONS: 1. Assess patient's risk for falls and implement fall prevention plan of care per policy 2. Provide and maintain a safe environment 3. Proper use of double Identifiers 4. Medication administration using the 5 rights 5. Hand hygiene 6. Specimens are labeled at the bedside 7. Instruct patient/ patient personal banking representative about use of safety devices 8. Include patient/ patient personal banking representative in decisions related to safety Outcome: Progressing Note: Evaluation of progress towards goal: injury free this shift, safety measures maintained Problem: Infection Goal: Absence of infection during hospitalization Description: INTERVENTIONS 1. Assess and monitor for signs and symptoms of infection. 2. Monitor lab/diagnostic results. 3. Monitor all insertion sites i.e., indwelling lines, tubes and drains. 4. Monitor endotracheal (as able) and nasal secretions for changes in amount and color. 5. Administer medications as ordered. 6. Instruct and encourage patient and family to use good hand hygiene technique. 7. Identify and instruct patient/patient personal banking representative in use of appropriate isolation precautions for identified infection/symptoms. 8. Provide and discuss with patient/patient personal banking representative on educational MDRO sheet. 9. Encourage and monitor nutritional status daily and consult water commissioner if indicated. 10. Implement neutropenic guidelines as needed. Outcome: Progressing Note: Evaluation of progress towards goal: WBC wnl, continue to monitor Problem: Discharge Planning Goal: Discharge to post-acute care, other facility, or home with appropriate resources Description: Patient's goal is: INTERVENTIONS 1. Conduct assessment to determine patient/family and health care team treatment goals, and need for post-acute services based on payer coverage, community resources, and patient preferences, and barriers to discharge 2. Coordinate with Social work, Care Navigation, and Utilization Review to arrange appropriate level of services according to patient's needs based on patient preference and payer coverage in collaboration with the physician and health care team 3. Address psychosocial, clinical, and financial barriers to discharge as identified in assessment in conjunction with the patient/family and health care team 4. Consult appropriate ancillary services (i.e.. PT/OT/ST, etc) as needed 5. Communicate with and update the patient/family, physician, and health care team regarding progress on the discharge plan 6. Identify discharge learning needs (meds, wound care, etc). 7. Arrange for needed discharge transportation as appropriate Outcome: Progressing Note: Evaluation of progress towards goal: in progress for snf Problem: Discharge Planning Goal: Discharge to post-acute care, other facility, or home with appropriate resources Description: Patient's goal is: INTERVENTIONS 1. Conduct assessment to determine patient/family and health care team treatment goals, and need for post-acute services based on payer coverage, community resources, and patient preferences, and barriers to discharge 2. Coordinate with Social work, Care Navigation, and Utilization Review to arrange appropriate level of services according to patient's needs based on patient preference and payer coverage in collaboration with the physician and health care team 3. Address psychosocial, clinical, and financial barriers to discharge as identified in assessment in conjunction with the patient/family and health care team 4. Consult appropriate ancillary services (i.e.. PT/OT/ST, etc) as needed 5. Communicate with and update the patient/family, physician, and health care team regarding progress on the discharge plan 6. Identify discharge learning needs (meds, wound care, etc). 7. Arrange for needed discharge transportation as appropriate Outcome: Progressing Note: Evaluation of progress towards goal: in progress for snf Problem: Potential for Compromised Skin Integrity Goal: Skin integrity is maintained or improved Description: Patient's goal is: INTERVENTIONS 1. Perform initial skin assessment on admission and as needed 2. Turn patient every 2 hours and PRN 3. Relieve pressure to bony prominences 4. Avoid shearing 5. Keep skin clean and dry 6. Alternate a full bath with partial baths for elderly 7. Apply lotion/moisturizer on skin 8. Monitor patient's hygiene practices 9. Float heels 10. Collaborate with interdisciplinary team and initiate plans and interventions as needed Outcome: Progressing Note: Evaluation of progress towards goal: skin intact, moisture management due to incontinent Problem: Potential for Compromised Skin Integrity Goal: Patient's nutritional intake is adequate Description: Patient's goal is: INTERVENTIONS 1. Assess and monitor food intake and supplements, patient food preferences, nausea, vomiting, labs, oral cavity (gums, teeth, tongue, mucosa), proper denture fit, and cultural beliefs 2. Monitor for signs of hypoglycemia and hyperglycemia 3. Collaborate with interdisciplinary team and initiate plan and interventions as ordered 4. Monitor patient's weight 5. Assist patient with meals/food selection 6. Assist patient with eating 7. Allow adequate time for meals 8. Provide pleasant environment during mealtime 9. Increase social contact during mealtimes 10. Plan activities to conserve energy 11. Encourage/perform oral hygiene as appropriate 12. Encourage patient to take dietary supplement as ordered 13. Collaborate with clinical water commissioner 14. Include patient/ patient's personal banking representative in decisions related to nutrition Outcome: Progressing Note: Evaluation of progress towards goal: good intake Problem: Urinary Incontinence Goal: Perineal skin integrity is maintained or improved Description: INTERVENTIONS 1. Assess genitourinary system, perineal skin, labs (urinalysis), and history of incontinence to include past management, aggravating, and alleviating factors 2. Keep skin clean and dry 3. Apply skin protectant 4. Develop skin care regimen 5. Provide privacy when changing patients incontinence device to maintain their dignity 6. Consider placing an indwelling catheter 7. Collaborate with interdisciplinary team and initiate plans and interventions as needed Outcome: Progressing Note: Evaluation of progress towards goal: continues to have incontinence, skin intact Problem: Activity Intolerance/Impaired Mobility Goal: Mobility/activity is maintained at optimum level for patient Description: Patient's goal is: INTERVENTIONS 1. Assess and monitor patient barriers to mobility and need for assistive/adaptive devices 2. Assess patient's emotional response to limitations 3. Collaborate with interdisciplinary teams and initiate plans and interventions as ordered 4. Encourage independent activity per tolerance 5. Maintain proper body alignment 6. Perform active/passive ROM as tolerated/ordered 7. Coordinate activities to conserve energy 8. Reposition patient 9. Ensure adequate rest/sleep time Outcome: Progressing Note: Evaluation of progress towards goal: 2 assist or theresa steady to transfer Problem: Communication Impairment Goal: Ability to express needs and understand communication Description: INTERVENTIONS 1. Assess patient's communication skills and ability to understand information 2. Provide alternate method of communication if needed i.e. ipad, sign board, pen/paper 3. Collaborate with Speech Therapy to develop effective communication strategies 4. Include patient/patient personal banking representative in decisions related to communication Outcome: Progressing Note: Evaluation of progress towards goal: confused but able to express self Problem: Potential for Aspiration Goal: Patient's risk of aspiration is minimized Description: INTERVENTIONS 1. Assess and monitor vital signs, respiratory status, and labs (WBC) 2. Monitor for signs of aspiration (tachypnea, cough, rales, wheezing, cyanosis, fever) 3. Assess and monitor patient's ability to swallow 4. Place patient up in chair to eat if possible 5. Elevate head of bed 90 degrees to eat if unable to get patient up into chair 6. Supervise patient during oral intake 7. Instruct patient to take small bites 8. Instruct patient to take small single sips when taking liquids 9. Follow patient-specific strategies generated by speech pathologist 10. Complete bedside swallow screen if appropriate and take actions as indicated. 11. Administer prescribed medications and monitor effects Outcome: Progressing Note: Evaluation of progress towards goal: aspiration precautions maintianed Problem: Anxiety Goal: Anxiety is at manageable level Description: Patient's goal is: INTERVENTIONS 1. Assess and monitor patient's anxiety level 2. Monitor for signs and symptoms of anxiety both physical and emotional (heart palpitations, chest pain, shortness of breath, headaches, nausea, feeling jumpy, restlessness, irritable, apprehensive) 3. Reorient/orient patient to unit/surroundings 4. Explain treatment plan 5. Explain tests/procedures prior to initiation 6. Encourage participation in care 7. Encourage verbalization of concerns/fears 8. Assess coping mechanisms 9. Assist in developing anxiety-reducing skills 10. Administer complimentary therapies 11. Manage patient's environment 12. Limit or eliminate stimulants such as caffeine and (more content not included)... [facility] 06-21-2025 Progress note Formatting of t his note might be different from the original. DISCHARGE PLANNING NOTE Referral sent to [facility] (P# ; F# ) [facility] 06-21-2025 Progress note Formatting of t his note is different from the original. 06/21/25 1428 Services Requested Patient expects to be discharged to: SNF Does the patient wish to have family/friend/caregiver involved in their discharge planning? Yes Does the patient plan to return home to a community setting? No, patient to discharge to facility-based provider. See Discharge Disposition Discharge Disposition SNF Facility/Service Name NA SNF Name [facility] Does the patient need discharge transportation arranged? Yes Transportation Arranged Ambulance Mobility issues discussed with transportation provider Yes Patient choice offered Yes List Provided Yes [facility] List Provided Group Home Facility Financial Disclosure Provided for In-Network Referral Yes DISCHARGE PLANNING NOTE CN spoke w pts , SNF choice is [facility]. She did n ot have a 2nd choice. CN asked her to review list for dditional choices. CN tasked for referral to [facility]. Barriers: SNF accept. Will need precert. CTbrain.Rohini Mcintyre RN [facility] 06-21-[address] Crisostomo, restart the heparin drip at this time, CTB negative. Restart at prior rate. Recheck antixa in 6 hours. [facility] 06-21-2025 Progress note Formatting of t his note might be different from the original. DISCHARGE PLANNING NOTE PT/OT rec SNF. CN called and left Voicemail for pts . Pt not appropriate for [facility] IPR. Need SNF choices. CN also sent SNF list Via careport to pts cell phone to select choices. Await response. Rohini Mcintyre RN [facility] 06-21-2025 Progress note Formatting of t his note is different from the original. Occupational Therapy Re-Evaluation Discharge Recommendations for Safe Patient Transition Discharge Recommendations: Post acute - moderate Post Acute Moderate Rehab Needs: Recommend moderate intensity rehab, Tolerate 1-2 hrs of therapy 3-5 days/wk, Subacute or chronic functional impairment Current Impairments Informing Therapy Recommendation: Ambulation status/safety, Cognition, Fall risk, ADL status, Endurance level, Communication needs Modified [place] Level of Disability: Moderately severe disability 0= No symptom at all 1= No significant disability despite symptoms: able to carry out all usual duties and activities 2= Slight disability: unable to carry out all previous activities, but able to look after own affairs without assistance 3= Moderate disability: requiring some help, but able to walk without assistance 4= Moderately severe disability: unable to walk without assistance and unable to attend to own bodily needs without assistance 5- Severe disability: bedridden, incontinent and requiring constant nursing care and attention. 6= 6 Clicks: Daily Activity Putting on and taking off regular lower body clothing?: A lot Bathing (including washing, rinsing, drying)?: A lot Toileting, which includes using toilet, bedpan or urinal?: A lot Putting on and taking off regular upper body clothing?: A lot Taking care of personal grooming such as brushing teeth?: A lot Eating meals?: None Scoring Daily Activity Raw Score: 14 CMS G Code Modifier: CK Modified chip index: 5/20 Occupational Profile Patient seen for OT eval on 06-19-2025. Patient now seen for OT re-eval to update goals due to improved level of alertness and ability to participate in therapy. Patient admitted with left side weakness and aphasia. 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 History of A-fib on coumadin and diabetic. Continue to recommend intermediate facility. Patient with episode of decreased responsiveness with listing to the left while on commode for 1-2 minutes. Once alert patient was nauseated. Lauren KHAN called to room. Patient assisted from toilet to chair and MD in room. See below for past medical and past surgical history. Past Medical History: Diagnosis [place] BPH (benign prostatic hyperplasia) Broken nose CVA [place]cerebral vascular [place]) [place]/17/20[place] Epistaxis Hypertension Hyponatremia secondary to SIADH Hypothyroid Lumbar spondylosis TIA (transient ischemic attack) Past Surgical History: Procedure Laterality Date NECK SURGERY plate in neck per Therapy Plan Need for skilled Occupational Therapy to address deficits in ADL independence and functional mobility due to a status decline resulting from left side weakness and aphasia. OT Treatment/Interventions: ADL retraining, Cognitive reorientation, Balance, Bed mobility, Functional transfer training, Patient/family training, Home management, Functional activities OT Frequency: 4-5days/week OT Duration: jul 19, 2025 Assessment Patient Assessment Therapy Problem List: Decreased ADL status, Decreased balance, Decreased cognition, Decreased endurance, Decreased high-level ADLs, Decreased mobility, Decreased safe judgement during ADL, Decreased self-care trans Patient Response to Treatment: Slow progress, decreased activity tolerance, Slow progress, cognitive deficits Mood/Affect: Appropriate for circumstances Rehab Prognosis: Good, With continued OT status post acute discharge Visit RN Communication: Yes Medical Record Reviewed: Yes OT Type of Visit: Re-Evaluation Precautions Activity: advance activity as tolerated per early mobility guidelines. Equipment: waker, chair alarm, gait belt, telemetry. Telemetry/Elementary Instructional Coach: Yes Oxygen Used: room air Other: (S) fall risk, cognition, unresponsive episode while on commode, listing to left with blank stare Pain Assessment Pain Assessment: No/denies pain ADL / IADL Where Assessed: Edge of bed, At toilet, Chair (patient was seated at edge of bed upon writers arrival. patient at end of session left up in chair with call light in reach and RN and MD in room.) Eating Assistance: Setup Grooming Assistance: Mod assist Bathing/Showering Assistance: Mod assist Toilet/Commode Assistance: Mod assist UE Dressing Assistance: Mod assist LE Dressing Assistance: Mod assist Footwear Assistance: Mod assist Other: (S) patient was able to ambulate into bathroom with walker and min assist. Min verbal cues for safety. Mod assist to doff brief and gown as patient was incontinent. Patient while on toilet went unresponsive with blank stare and listing to the left. Patient was not able to verbalize or follow commands. Lauren KHAN called. Patient after 1-2 minutes aroused. patient was able to answer his name, recall his sons names. patient moved from toilet to recliner with mod assist of two. Patient was able to stand at chairside after this to don depend with walker and min assist of two. Blood pressure 100/73 upon entry and after episode . MD in room for assessment. Strength appears baseline. Home Management - IADL Other: (S) patient was able to ambulate into bathroom with walker and min assist. Min verbal cues for safety. Mod assist to doff brief and gown as patient was incontinent. Patient while on toilet went unresponsive with blank stare and listing to the left. Patient was not able to verbalize or follow commands. Lauren KHAN called. Patient after 1-2 minutes aroused. patient was able to answer his name, recall his sons names. patient moved from toilet to recliner with mod assist of two. Patient was able to stand at chairside after this to don depend with walker and min assist of two. Blood pressure 100/73 upon entry and after episode . MD in room for assessment. Strength appears baseline. Hearing / Speech / Vision Hearing: Hard of hearing/hearing concerns Speech: Other (Comment) (very slow to respond.) Cognition Overall Cognitive Status: Exceptions to Within Functional Limits Arousal/Alertness: Delayed responses to stimuli Memory: Decreased immediate memory Orientation Level: Oriented to person, Other (Comment) (able to reacall kids names and and city where he lives. Unable to recall place, month, year or age.) Following Commands: Follows one step commands with repetition, Follows one step commands with increased time Insight of Deficits: Decreased awareness of deficits Problem Solving: Nonfunctional Interfering Components: Processing speed, Working memory, Hearing Sensation Overall Sensation Status: Within Functional Limits Bed Mobility Other: patient was seated at edge of bed upon writers arrival. Transfers Sit to Stand: Min assist, Verbal cues (min assist of two.) Stand to Sit: Min assist, Verbal cues (min assist of two) Floor Transfer: (initally min assist of one with verbal cues for stand to sit. Patient had episode while on commode of unresponsivenss, blank stare and listing to the left. Lauren KHAN called to room Patient assisted to chair with mod assist of two.) Gait Gait Assistance: Min assist, Verbal cues Assistive Device: Rolling walker Gait Distance: patient was able to ambulate into bathroom with walker and min assist. Balance Sitting Balance: Static: Good Sitting Balance: Dynamic: Fair (fair+) Standing Balance: Static: Fair Standing Balance: Dynamic: Fair (fair-) Other: with walker RUE Assessment: Within Functional Limits LUE Assessment: Within Functional Limits (hand grasp 4/5 otherwisr functional) Activity Tolerance Endurance: Tolerates <30 minutes activity WITHOUT vital sign changes Other: room air Plan Occupational Therapy Care Plan Occupational Therapy Care Plan (Active) Template: OT - Occupational Therapy Problem: Activity Tolerance Dates: Start: 06/21/25 Disciplines: OT Goal: Tolerate 30 minutes of activity WITH rest breaks Dates: Start: 06/21/25 Expected End: 07/19/25 Description: Goal Description: Disciplines: OT Problem: Bathing LB Dates: Start: 06/21/25 Disciplines: OT Goal: Patient will perform bathing LB with Contact Guard Dates: Start: 06/21/25 Expected End: 07/19/25 Description: Goal Description: Disciplines: OT Problem: Bathing UB Dates: Start: 06/21/25 Disciplines: OT Goal: Patient will perform bathing UB with Set-Up Dates: Start: 06/21/25 Expected End: 07/19/25 Description: Goal Description: Disciplines: OT Problem: Bed Mobility Dates: Start: 06/21/25 Disciplines: OT Goal: Patient will perform bed mobility Independently Dates: Start: 06/21/25 Expected End: 07/19/25 Description: Goal Description: Disciplines: OT Problem: Cognition Dates: Start: 06/21/25 Disciplines: OT Goal: Improve cognition Dates: Start: 06/21/25 Expected End: 07/19/25 Description: Engage in cognitive tasks and increase cognition to be alert and oriented times 3 consistently. Disciplines: OT Problem: Dressing LB Dates: Start: 06/21/25 Disciplines: OT Goal: Patient will perform dressing LB with Contact Guard Dates: Start: 06/21/25 Expected End: 07/19/25 Description: Goal Description: Disciplines: OT Problem: Dressing UB Dates: Start: 06/21/25 Disciplines: OT Goal: Patient will perform dressing UB with Set-Up Dates: Start: 06/21/25 Expected End: 07/19/25 Description: Goal Description: Disciplines: OT Problem: Functional Mobility Dates: Start: 06/21/25 Disciplines: OT Goal: Patient will perform functional mobility with Contact Guard Dates: Start: 06/21/25 Expected End: 07/19/25 Description: Goal Description: Disciplines: OT Problem: Grooming Dates: Start: 06/21/25 Disciplines: OT Goal: Patient will perform grooming with Contact Guard Dates: Start: 06/21/25 Expected End: 07/19/25 Description: Goal Description: Disciplines: OT Problem: Sitting Balance Dates: Start: 06/21/25 Disciplines: OT Goal: Improve balance to good Dates: Start: 06/21/25 Expected End: 07/19/25 Description: Good dynamic balance. Disciplines: OT Problem: Standing Balance Dates: Start: 06/21/25 Disciplines: OT Goal: Improve balance to good Dates: Start: 06/21/25 Expected End: 07/19/25 Description: Good static balance. Disciplines: OT Problem: Toilet Transfers Dates: Start: 06/21/25 Disciplines: OT Goal: Patient will perform toilet transfers with Modified [place] Dates: Start: 06/21/25 Expected End: 07/19/25 Description: Goal Description: Disciplines: OT Problem: Toileting Dates: Start: 06/21/25 Disciplines: OT Goal: Patient will perform toileting with Contact Guard Dates: Start: 06/21/25 Expected End: 07/19/25 Description: Goal Description: Disciplines: OT Problem: Transfers Dates: Start: 06/21/25 Disciplines: OT Goal: Patient will perform transfers with Contact Guard Dates: Start: 06/21/25 Expected End: 07/19/25 Description: Goal Description: Disciplines: OT Occupational Therapy Care Plan (Resolved) There are no resolved problems. Principal Problem: CVA (cerebral vascular accident) ([facility]) [facility] 06-21-2025 Progress note Formatting of t his note is different from the original. Physical Therapy Re-Evaluation Discharge Recommendations for Safe Patient Transition Discharge Recommendations: Post acute - moderate Post Acute Moderate Rehab Needs: Recommend moderate intensity rehab, Tolerate 1-2 hrs of therapy 3-5 days/wk, Subacute or chronic functional impairment Current Impairments Informing Therapy Recommendation: Ambulation status/safety, Cognition, Fall risk 6 Clicks: Basic Mobility Turning from your back to your side while in a flat bed without using bed rails?: A little Moving from lying on your back to sitting on side of flat bed without using bed rails?: A little Moving to and from bed to a chair (including w/c)?: A little Standing up from a chair using your arms (e.g. w/c or bedside chair)?: A lot To walk in hospital room?: A little Climbing 3-5 steps with a railing?: Total Scoring 6 Clicks: Basic Mobility Raw Score: 15 [facility] G Code Modifier: CK SwePASS score = 23/36 Pt seen this date for PT re-eval to assess mobility and discharge plan as pt more alert this date than initial eval. See initial eval from 06/19 for details of admit for L sided weakness and aphasia. MRI (-) for acute infarct. EEG - generalized background slowing Echo - EF 40-45% Impression: seizures vs metabolic encephalopathy due to hyponatremia. Pt with episode of decreased responsiveness, L lean during session this date and is cognitively impaired - oriented to self only, slow to respond. Past Medical History: Diagnosis Date [place] BPH (benign prostatic hyperplasia) Broken nose CVA [place]cerebral [place]) [place] 06/17/2025 [place] Epistaxis Hypertension Hyponatremia secondary to SIADH Hypothyroid Lumbar spondylosis TIA (transient ischemic attack) Past Surgical History: Procedure Laterality Date NECK SURGERY plate in neck per Modified [place] Level of Disability: Moderately severe disability 0= No symptom at all 1= No significant disability despite symptoms: able to carry out all usual duties and activities 2= Slight disability: unable to carry out all previous activities, but able to look after own affairs without assistance 3= Moderate disability: requiring some help, but able to walk without assistance 4= Moderately severe disability: unable to walk without assistance and unable to attend to own bodily needs without assistance 5- Severe disability: bedridden, incontinent and requiring constant nursing care and attention. 6= Therapy Plan Need for skilled Physical Therapy to address deficits in functional mobility due to a status decline resulting from admit for stroke work up. PT Treatment/Interventions: Functional transfer training, LE strengthening/ROM, Patient/family training, Equipment eval/education, Balance, Bed mobility, Functional activities, Neuromuscular reeducation PT Frequency: 4-5days/week PT Duration: 07/13/25 Assessment Patient Assessment Therapy Problem List: Decreased balance, Decreased cognition, Decreased mobility, Decreased safe judgement during ADL, Decreased LE strength Patient Response to Treatment: Tolerated evaluation without adverse reaction, Slow progress, cognitive deficits Mood/Affect: Flat Rehab Prognosis: Good, With continued PT status post acute discharge Visit RN Communication: Yes Medical Record Reviewed: Yes PT Type of Visit: Re-Evaluation Precautions Activity: act as tolerated, reg diet with fluid restriction Equipment: gait belt, wheeled walker, IV, chair/bed alarm Telemetry/Elementary Instructional Coach: Yes Oxygen Used: room air Other: (S) fall risk, confusion. Episode of decreased responsiveness during this session Subjective Physical Therapy Comments: Pt more alert this date, slow to respond and oriented to self only. Able to recall where he lives and his 's name but reports his son is 11 yo. Pain Assessment Pain Assessment: No/denies pain Home Living Other : see initial eval for details of home Prior Function Other: see initial eval for details of PLOF ADL / IADL Hand Dominance: Right Hearing / Speech / Vision Hearing: Hard of hearing/hearing concerns (Pt reports he wears hearing aides but not present this date) Speech: Delayed responses Current Vision: Wears glasses only for reading Other: Vision appears intact this date Cognition Overall Cognitive Status: Exceptions to Within Functional Limits Arousal/Alertness: Delayed responses to stimuli Attention Span: Attends with cues to redirect Memory: Decreased recall of recent events, Decreased recall of biographical information, Decreased short term memory Orientation Level: Oriented to person, Disoriented to place, Disoriented to time, Disoriented to age (Pt able to recall 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 Per RN, pt had sat up on his own few minutes prior with bed alarm going off and pt remained at side of bed with breakfast tray in front of him. Pt remained up in chair after session with chair alarm intact. Transfers Sit to Stand: Min assist, Verbal cues (2 assist) Stand to Sit: Min assist (2 assist) Toilet Transfers: Min assist (2 assist) Other: (S) Cues for safe hand placement with walker and to initiate mobiliy. While on toilet - pt had episode of decreased responsivement, leaning to the L with blank stare. RN alerted. Pt with increased alertness after 2-3 mins and c/o nausea with wretching but no emesis. Pt transferred from toilet to recliner chair with Mod A x 2 stand pivot. Once in chair, pt more reponsive and back to baseline. BP 98/65 Gait Base of Support: Narrow Pattern: Decreased shayna, L Decreased foot clearance, R Decreased foot clearance Gait Assistance: Min assist, Verbal cues Assistive Device: Rolling walker Gait Distance: Pt amb 12 feet from bed to toilet Limiting Factors to Gait: Decreased safety, Cognition/difficulty following directions Other: Pt needs assist to initiate gait and walker safety. Balance Sitting Balance: Static: Good Sitting Balance: Dynamic: (Fair+) Standing Balance: Static: Fair Standing Balance: Dynamic: (Fair-) Other: Pt able to sit unsupported at EOB without LOB. Walker support in standing RLE Assessment: (4/5 throughout) LLE Assessment: (4/5 throughout) Activity Tolerance Endurance: Tolerates 30 minutes activity with rest breaks Other: BP on low side this AM - 100/73 prior to session. Pt with episode of decreased responsiveness, L lean, blank stare this date with BP 98/65. Pt limited by confusion and slow processing Plan Physical Therapy Care Plan Physical Therapy Care Plan (Active) Template: PT - Physical Therapy Problem: Activity Tolerance Dates: Start: 06/21/25 Disciplines: PT Goal: Tolerate > 30 minutes of activity WITH rest breaks Dates: Start: 06/21/25 Expected End: 07/13/25 Description: Goal Description: For seated and standing activities for improved mobility Disciplines: PT Problem: Bed Mobility Dates: Start: 06/21/25 Disciplines: PT Goal: Patient will perform bed mobility with Supervision Dates: Start: 06/21/25 Expected End: 07/13/25 Description: Goal Description: Disciplines: PT Problem: Gait Dates: Start: 06/21/25 Disciplines: PT Goal: Patient will perform gait with Stand By Assist Dates: Start: 06/21/25 Expected End: 07/13/25 Description: 100 feet with least restrictive AD for safe mobility Goal Description: Disciplines: PT Problem: Sitting Balance Dates: Start: 06/19/25 Disciplines: PT Goal: Improve balance to good Dates: Start: 06/21/25 Expected End: 07/14/25 Description: Static Dynamic with UE support as needed for safe ADLs and transfers Disciplines: PT Problem: Standing Balance Dates: Start: 06/21/25 Disciplines: PT Goal: Improve balance to good Dates: Start: 06/21/25 Expected End: 07/13/25 Description: Static Dynamic with UE support for safe mobility, decreased fall risk Disciplines: PT Problem: Transfers Dates: Start: 06/21/25 Disciplines: PT Goal: Patient will perform transfers with Stand By Assist Dates: Start: 06/21/25 Expected End: 07/13/25 Description: Goal Description: with RW support Disciplines: PT Physical Therapy Care Plan (Resolved) There are no resolved problems. Principal Problem: CVA (cerebral vascular accident) ([facility] T [facility] 06-21-2025 Nurse Note In chair, alert and responding. BP 98/65. Dr Crisostomo returns page and updated on events. [facility] 06-21-2025 Nurse Note Working with physical and occupational therapy. Ambulated to bathroom, had been alert and conversing, suddenly became unresponsive, staring and leaning to left. Resolved after 2-3 minutes, then more alert and was able to state name. Assisted to chair. Dr Crisostomo pagehazel. T [facility] 06-20-2025 Plan of care note Problem: Pain Goal: Patient goal is pain score less than 4, able to rest, and participant in treatment plan as appropriate Description: INTERVENTIONS: 1. Encourage patient or legal personal banking representative to report early pain and ask for pain medicine when needed 2. Assess pain using appropriate pain scale and include the scale used when documenting 3. Administer analgesics based on type and severity of pain and evaluate response within appropriate time frame 4. Implement non-pharmacological measures as appropriate and evaluate response 5. Consider cultural and social influences on pain and pain management 6. Notify LIP if interventions ineffective or patient reports new pain 7. Monitor vital signs including pulse ox, end-tidal CO2 based on pain intervention 8. Reassess pain per policy 9. Teach patient or legal personal banking representative interventions for comforting Outcome: Progressing Note: Evaluation of progress towards goal: patient denies pain at this time Problem: Safety Goal: Patient will be injury free during hospitalization Description: INTERVENTIONS: 1. Assess patient's risk for falls and implement fall prevention plan of care per policy 2. Provide and maintain a safe environment 3. Proper use of double Identifiers 4. Medication administration using the 5 rights 5. Hand hygiene 6. Specimens are labeled at the bedside 7. Instruct patient/ patient personal banking representative about use of safety devices 8. Include patient/ patient personal banking representative in decisions related to safety Outcome: Progressing Note: Evaluation of progress towards goal: Patient injury free at current time Problem: Infection Goal: Absence of infection during hospitalization Description: INTERVENTIONS 1. Assess and monitor for signs and symptoms of infection. 2. Monitor lab/diagnostic results. 3. Monitor all insertion sites i.e., indwelling lines, tubes and drains. 4. Monitor endotracheal (as able) and nasal secretions for changes in amount and color. 5. Administer medications as ordered. 6. Instruct and encourage patient and family to use good hand hygiene technique. 7. Identify and instruct patient/patient personal banking representative in use of appropriate isolation precautions for identified infection/symptoms. 8. Provide and discuss with patient/patient personal banking representative on educational MDRO sheet. 9. Encourage and monitor nutritional status daily and consult water commissioner if indicated. 10. Implement neutropenic guidelines as needed. Outcome: Progressing Note: Evaluation of progress towards goal: No s/s of infection at this time Problem: Knowledge Deficit Goal: Patient/patient personal banking representative demonstrates understanding of disease process, treatment plan, medications, and discharge instructions Description: INTERVENTIONS 1. Complete learning assessment and assess knowledge base 2. Provide teaching at level of understanding 3. Provide teaching via preferred learning method(s) Outcome: Progressing Note: Evaluation of progress towards goal: Pt edu on plan Problem: Discharge Planning Goal: Discharge to post-acute care, other facility, or home with appropriate resources Description: Patient's goal is: INTERVENTIONS 1. Conduct assessment to determine patient/family and health care team treatment goals, and need for post-acute services based on payer coverage, community resources, and patient preferences, and barriers to discharge 2. Coordinate with Social work, Care Navigation, and Utilization Review to arrange appropriate level of services according to patient's needs based on patient preference and payer coverage in collaboration with the physician and health care team 3. Address psychosocial, clinical, and financial barriers to discharge as identified in assessment in conjunction with the patient/family and health care team 4. Consult appropriate ancillary services (i.e.. PT/OT/ST, etc) as needed 5. Communicate with and update the patient/family, physician, and health care team regarding progress on the discharge plan 6. Identify discharge learning needs (meds, wound care, etc). 7. Arrange for needed discharge transportation as appropriate Outcome: Progressing Note: Evaluation of progress towards goal: Problem: Potential for Compromised Skin Integrity Goal: Skin integrity is maintained or improved Description: Patient's goal is: INTERVENTIONS 1. Perform initial skin assessment on admission and as needed 2. Turn patient every 2 hours and PRN 3. Relieve pressure to bony prominences 4. Avoid shearing 5. Keep skin clean and dry 6. Alternate a full bath with partial baths for elderly 7. Apply lotion/moisturizer on skin 8. Monitor patient's hygiene practices 9. Float heels 10. Collaborate with interdisciplinary team and initiate plans and interventions as needed Outcome: Progressing Note: Evaluation of progress towards goal: skin integrity maintained Problem: Moderate - High Risk Fall Score Description: Valenzuela Fall Score of =/> 25 or indicated by [facility] Assessment Goal: Patient should be free from fall Description: Interventions: 1. [place] to environment 2. Hourly rounds addressing the 4 P's (Pain, Positioning, Possessions, Potty) 3. Clear area of hazards (spills, clutter, electrical cords, unnecessary equipment) 4. Place equipment (bed & TV controls, call light, phone, urinal) within reach 5. Encourage patient to wear glasses and hearing aides as appropriate 6. Maintain bed in lowest position 7. Lock wheels on bed/wheelchair 8. Provide adequate lighting, including night light 9. Assess need for additional bedding, food/fluids, pain med's prior to sleep/routinely 10. Provide gripper slippers or personal non-skid footwear 11. Teach patient and patient personal banking representative to maintain environment for safety and engage in all aspects of fall prevention program 12. Remind patient to call for help before getting out of bed 13. Initiate bed/chair/exit alarms supportive devices as appropriate, (chair wedge, no-skid floor mat, raised edge mattress, hip protectors) 14. Locate patient bed assignment for optimal visualization 15. Evaluate and identify Safe Patient Handling Equipment needs 16. Provide supervision when out of bed or chair 17. Utilize gait belt as needed to assist with ambulation 18. Place adaptive equipment (cane, walker) within reach 19. Request patient personal banking representative bring adaptive equipment/mobility aids from home or obtain and provide as needed 20. Consult pharmacy regarding effects of med's affecting mobility, cognition, and alternatives 21. Obtain physician order for PT if risk factors associated with mobility are present 22. Obtain physician order for OT as appropriate 23. Utilize diversional activities 24. Educate patient and patient personal banking representative how to maintain a safe environment during visitation times (notify nurse prior to leaving bedside) 25. Consider appropriateness of medical or non-biomedical electronics technician 26. Set up voiding schedule as appropriate (every 2 hours) Outcome: Progressing Note: Evaluation of progress towards goal: pt free from fall at this time Problem: Knowledge Deficit Goal: Patient/patient personal banking representative demonstrates understanding of disease process, treatment plan, medications, and discharge instructions Description: INTERVENTIONS 1. Complete learning assessment and assess knowledge base 2. Provide teaching at level of understanding 3. Provide teaching via preferred learning method(s) Outcome: Progressing Note: Evaluation of progress towards goal: Pt edu on plan Problem: Neurological Deficit Goal: Neurological status is stable or improving Description: Patient's goal is: INTERVENTIONS 1. Complete Neurological assessment as indicated/ordered 2. Initiate measures to prevent increased intracranial pressure 3. Monitor and assess patient's level of consciousness, motor function, sensory function, and level of assistance needed for ADLs 4. Monitor and report changes from baseline 5. Maintain blood pressure and fluid volume within ordered parameters to optimize cerebral perfusion and minimize risk of hemorrhage 6. Monitor labs and diagnostic tests 7. Administer anti-seizure medications as ordered 8. Maintain airway, patient safety and administer oxygen as ordered 9. Monitor patient for seizure activity, document and report duration and description of seizure to LIP 10. If seizure occurs, turn patient to side and suction secretions as needed 11. Reorient patient post seizure 12. Seizure pads on all 4 side rails 13. Instruct patient/family to notify RN of any seizure activity 14. Instruct patient/family to call for assistance with activity based on assessment 15. Utilize bleeding precautions if thrombolytic given Outcome: Progressing Note: Evaluation of progress towards goal: pt alert and oriented to person and age [facility] 06-20-2025 Progress note Formatting of t his note might be different from the original. [facility] Transfer Accept Note I have received a request for transfer of primary service for this patient from the neurology team care of neurology attending, clinical handoff received from Neurology resident. [facility] will assume care as primary team of this patient 7:00 a.m. 06/21/2025. [facility] Work Phone: 06-20-2025 Plan of care note Problem: Medication Description: If medication is necessary, use low-risk medication that does not interfere with what matters to the older adult patient, mobility, or mentation across settings of care. Goal: Patient will be screened for high-risk medications once per stay Description: Interventions: 1. Pharmacist to perform medication review to screen for high-risk medications 2. Pharmacist to identify high-risk medications in the Plan of Care note 3. Pharmacist to make recommendations for follow-up in the Plan of Care note, if warranted Outcome: Completed Note: Medications individually and in combination may interfere with What Matters, Mentation, and safe Mobility because of the increased risk of confusion, delirium, unsteadiness and falls. Profile review indicates this patients has active orders for no high risk medications. Chart review also shows no change in renal function. [facility] 06-20-2025 Consult note Associated Order (s): IP CONSULT TO PHYSICAL MEDICINE REHAB Images from the original note were not included. PHYSICAL MEDICINE AND REHABILITATION CONSULT Date of Admission: 06/17/2025 1:38 PM Referring Physician: Mirian Carranza MD PCP: Yanique Mcneill APRN-AVELINA Chief Compliant: Principal Problem: [place]cere[place] Reason for Consultation: Rehabilitation Candidacy and Rehab [facility]/Services Consulting Providers Provider Service Specialty MD Kassi Gonsales Physical Medicine and Rehabilitation Physical Medicine & Rehabilitation MD Kassi Zuniga Nephrology Nephrology History Of Present Illness: Dariel Zabala is a 85 y.o. Other male history of AFib on Coumadin, hypertension BPH diabetes who presents to the hospital with right-sided weakness on 06/17/2025 1:38 PM. NIH score was 13. CT head no acute process. CTA showed right P1 P2 occlusion. INR was 1.25 TNK was given to the patient and transferred to [facility]. CT perfusion study showed deficit in anterior temporal horn. EEG generalized slowing. Patient became agitated and confused and making progress. MRI showed no acute infarct. Patient also had recent fall and admitted to the hospital with nasal bone fracture. Patient has chronic hyponatremia secondary to SIADH. I was consulted regarding Rehabilitation needs. ROS : A comprehensive 14 review of systems was negative except for Confused, drowsy, generalized weakness and debility Cardiovascular ROS: positive for - irregular heartbeat Respiratory ROS: positive for - shortness of breath Neurological ROS: positive for - gait disturbance and weakness Musculoskeletal ROS: positive for - gait disturbance and muscular weakness PMH Past Medical History: Diagnosis Date Atrial fibrillation [place] BPH (benign prostatic hyperplasia) Broken nose CVA [place]cerebral vascular accident) [place] 06/17/2025 Diabetes [place] Epistaxis Hypertension Hyponatremia secondary to SIADH Hypothyroid Lumbar spondylosis TIA (transient ischemic attack) PSH Past Surgical History: Procedure Laterality Date NECK SURGERY plate in neck per Allergies No Known Allergies Medications: Scheduled meds atenoloL, 12.5 mg, oral, Daily gabapentin, 300 mg, oral, Daily levothyroxine, 25 mcg, oral, Daily lidocaine, 1 patch, transdermal, Daily pantoprazole, 40 mg, oral, Daily rosuvastatin, 5 mg, oral, Nightly sodium chloride, 1,000 mg, oral, 3x daily around food urea, 15 g, oral, BID warfarin, 2.5 mg, oral, Once per day on Tuesday warfarin, 5 mg, oral, Once per day on Tuesday PRN meds acetaminophen OR acetaminophen calcium gluconate OR calcium gluconate OR calcium gluconate dextrose dextrose 50 % in water (D50W) glucagon (human recombinant) heparin (porcine) hydrALAZINE labetalol magnesium sulfate OR magnesium sulfate potassium chloride OR potassium chloride potassium chloride in water OR potassium chloride in water sodium phosphate IV OR sodium phosphate IV - central line OR sod phos di, mono-K phos mono sodium chloride Social History Social History Socioeconomic History Marital status: Spouse name: Not on file Number of children: Not on file Years of education: Not on file Highest education level: Not on file Occupational History Not on file Tobacco Use Smoking status: Never Smokeless tobacco: Never Vaping Use Vaping status: Never Used Substance and Sexual Activity Alcohol use: Not Currently Drug use: Not Currently Sexual activity: Not on file Other Topics Concern Not on file Social History Narrative Not on file Social Drivers of Health Financial Resource Strain: Not on file Food Insecurity: No Food Insecurity (06/18/2025) Hunger Screening Food Insecurity - Worry: Never True Food Insecurity - Inability: Never True Transportation Needs: No Transportation Needs (06/17/2025) PRAPARE - Transportation Lack of Transportation (Medical): No Lack of Transportation (Non-Medical): No Physical Activity: Not on file Stress: Not on file Social Connections: Not on file Interpersonal Safety: Not At Risk (06/17/2025) Humiliation, Afraid, Rape, and Kick questionnaire Fear of Current or Ex-Partner: No Emotionally Abused: No Physically Abused: No Sexually Abused: No Housing Instability: Low Risk (06/17/2025) Housing Instability Housing Instability: No Patient lives with spouse and patient had recent fall. Independent in basic ADLs prior to admission. Premorbid level of function: Prior Function Lives With: Spouse (Leelee) (06/19/25 1410) Level of Mobility: Independent with ADLs and functional transfers or gait (06/19/25 1410) Homemaking Assistance: Independent (06/19/25 1410) Vocational: Retired (06/19/25 1410) Other: Per EMR review, pt indep at baseline for mobility and ADLs, driving. Pt had recent fall 06/02/25 while adjusting lawn chair resulting in nasal bone fx and persistent epistaxis. (06/19/25 141) Family History No family history on file. Physical Examination Vital Signs: Blood pressure 137/63, pulse 71, temperature 36.6 C (97.9 F), temperature source Oral, resp. rate 16, height 177.8 cm (5' 10 ), weight 77.9 kg (171 lb 11.8 oz), SpO2 94%. Admission Weight: Weight: 78 kg (171 lb 15.3 oz) General Appearance: no distress Head: Normocephalic, without obvious abnormality, atraumatic Eyes: conjunctivae/corneas clear. PERRL, EOM's intact. Fundi benign. ENT: ENT exam normal, no neck nodes or sinus tenderness Neck: no adenopathy, no carotid bruit, no JVD, supple, symmetrical, trachea midline, and thyroid not enlarged, symmetric, no tenderness/mass/nodules Lungs: clear to auscultation bilaterally Heart: regular rate and rhythm, S1, S2 normal, no murmur, click, rub or gallop Abdomen: soft, non-tender; bowel sounds normal; no masses, no organomegaly Extremities: extremities normal, atraumatic, no cyanosis or edema Skin: Skin color, texture, turgor normal. No rashes or lesions Neurologic: generalized weakness IMAGE: EEG Video Monitoring Daily Result Date: 06/20/2025 Images from the original result were not included. Continuous video EEG monitoring study Date of Report: 06/20/2025 History: This is a n 85 yo man with altered mental status, concern for seizures. Procedure: Start: 20:37 06/19/2025 End: 06:30 06/20/2025 This is a standard [facility] EEG monitoring report using scalp and ear electrodes in the 10-20 international System. Recording was reviewed with multiple reformatted montages. Quantitative digital analysis data was utilized as needed. Technical Description: No well-defined posterior dominant rhythm was noted. The anterior posterior gradient was absent. The background was continuous and symmetric and consisted of 20-40 uv amplitude polymorphic admixed theta and delta waves. Variability was absent. Reactivity was indeterminate. Sleep changes were not noted. No definite interictal epileptiform activity in the form of spike or sharp wave is noted. Clinical Interpretation: This EEG is abnormal due to the presence of moderate to severe generalized background slowing consistent with moderate to severe bihemispheric cerebral dysfunction that may be seen in postictal states, hypoxic, toxic or metabolic abnormalities, sedative medications use or primary neurological disorders. Yaquelin Esparza MD Infection Control Practitioner Neurology/Neurophysiology [facility] Recent Results (from the past 48 hours) Hemoglobin Collection Time: 06/18/25 3:28 PM Result Value Ref Range Hemoglobin 13.9 13 - 17 g/dL Platelet count Collection Time: 06/18/25 3:28 PM Result Value Ref Range Platelet Count 214 150 - 450 X10E9/L MPV 8.7 7 - 12 fL Protime & INR Collection Time: 06/18/25 3:28 PM Result Value Ref Range PROTIME 13.0 9.8 - 13.2 sec INR 1.1 0.9 - 1.2 Extra Tubes Collection Time: 06/18/25 3:28 PM Narrative The following orders were created for panel order Extra Tubes. Procedure Abnormality Status --------- ------ [facility] TOP[[id number]] Final result Please view results for these tests on the individual orders. PST TOP Collection Time: 06/18/25 3:28 PM Result Value Ref Range Extra Tube Auto Resulted Magnesium Collection Time: 06/18/25 3:28 PM Result Value Ref Range MAGNESIUM 1.6 (L) 1.8 - 2.6 mg/dL Bedside Glucose *Place/Obtain serum glucose if >500 per glucometer. Collection Time: 06/18/25 4:01 PM Result Value Ref Range Bedside Glucose (POC) 154 (H) 65 - 99 mg/dL Anti XA unfractionated heparin Collection Time: 06/18/25 10:28 PM Result Value Ref Range ANTI XA UFH 0.26 (L) 0.30 - 0.70 IU/mL Basic Metabolic Panel Collection Time: 06/19/25 7:18 AM Result Value Ref Range SODIUM 123 (L) 134 - 146 mmol/L POTASSIUM 4.3 3.5 - 5.0 mmol/L CHLORIDE 88 (L) 98 - 109 mmol/L CARBON DIOXIDE 26 22 - 32 mmol/L ANION GAP 9 5 - 15 mmol/L BLOOD UREA NITROGEN 10 5 - 27 mg/dL CREATININE 0.73 0.60 - 1.30 mg/dL GLUCOSE 104 (H) 65 - 99 mg/dL CALCIUM 8.8 8.5 - 10.5 mg/dL EGFR Non-Race Dependent 90 >=60 ml/min/1.73sq.m CBC auto differential Collection Time: 06/19/25 7:18 AM Result Value Ref Range WBC 7.9 4 - 11 x10E9/L RBC Count 4.31 4.1 - 5.7 X10E12/L Hemoglobin 13.4 13 - 17 g/dL Hematocrit 38.7 (L) 39 - 50 % MCV 90 80 - 100 fL MCH 31.1 27 - 34 pg MCHC 34.6 32 - 36 g/dL RDW 13.5 11.5 - 15 % Platelet Count 200 150 - 450 X10E9/L MPV 8.8 7 - 12 fL Neutrophils % 69.6 % Lymphocytes % 16.0 % Monocytes % 12.6 % Eosinophils % 1.1 % Basophils % 0.7 % Neutrophils Absolute (A) 5.5 1.5 - 6.6 10*3/uL Lymphocytes Absolute 1.3 1.0 - 3.5 10*3/uL Monocytes Absolute 1.0 (H) 0.0 - 0.9 10*3/uL Eosinophils Absolute 0.1 0.0 - 0.4 10*3/uL Basophils Absolute 0.1 0.0 - 0.2 10*3/uL Differential Type AUTOMATED DIFFERENTIAL Magnesium Collection Time: 06/19/25 7:18 AM Result Value Ref Range MAGNESIUM 2.3 1.8 - 2.6 mg/dL Anti XA unfractionated heparin Collection Time: 06/19/25 7:18 AM Result Value Ref Range ANTI XA UFH 0.60 0.30 - 0.70 IU/mL Anti XA unfractionated heparin Collection Time: 06/19/25 3:36 PM Result Value Ref Range ANTI XA UFH 0.64 0.30 - 0.70 IU/mL Electrolyte panel Collection Time: 06/19/25 7:27 PM Result Value Ref Range SODIUM 120 (L) 134 - 146 mmol/L POTASSIUM 4.7 3.5 - 5.0 mmol/L CHLORIDE 89 (L) 98 - 109 mmol/L CARBON DIOXIDE 24 22 - 32 mmol/L ANION GAP 7 5 - 15 mmol/L Electrolyte panel Collection Time: 06/20/25 12:42 AM Result Value Ref Range SODIUM 122 (L) 134 - 146 mmol/L POTASSIUM 4.3 3.5 - 5.0 mmol/L CHLORIDE 90 (L) 98 - 109 mmol/L CARBON DIOXIDE 24 22 - 32 mmol/L ANION GAP 8 5 - 15 mmol/L Basic Metabolic Panel Collection Time: 06/20/25 8:44 AM Result Value Ref Range SODIUM 124 (L) 134 - 146 mmol/L POTASSIUM 4.3 3.5 - 5.0 mmol/L CHLORIDE 89 (L) 98 - 109 mmol/L CARBON DIOXIDE 27 22 - 32 mmol/L ANION GAP 8 5 - 15 mmol/L BLOOD UREA NITROGEN 12 5 - 27 mg/dL CREATININE 0.73 0.60 - 1.30 mg/dL GLUCOSE 98 65 - 99 mg/dL CALCIUM 9.0 8.5 - 10.5 mg/dL EGFR Non-Race Dependent 90 >=60 ml/min/1.73sq.m CBC auto differential Collection Time: 06/20/25 8:44 AM Result Value Ref Range WBC 6.5 4 - 11 x10E9/L RBC Count 4.25 4.1 - 5.7 X10E12/L Hemoglobin 13.3 13 - 17 g/dL Hematocrit 38.1 (L) 39 - 50 % MCV 90 80 - 100 fL MCH 31.3 27 - 34 pg MCHC 34.9 32 - 36 g/dL RDW 13.8 11.5 - 15 % Platelet Count 204 150 - 450 X10E9/L MPV 9.5 7 - 12 fL Neutrophils % 64.7 % Lymphocytes % 22.4 % Monocytes % 10.7 % Eosinophils % 1.2 % Basophils % 1.0 % Neutrophils Absolute (A) 4.2 1.5 - 6.6 10*3/uL Lymphocytes Absolute 1.5 1.0 - 3.5 10*3/uL Monocytes Absolute 0.7 0.0 - 0.9 10*3/uL Eosinophils Absolute 0.1 0.0 - 0.4 10*3/uL Basophils Absolute 0.1 0.0 - 0.2 10*3/uL Differential Type AUTOMATED DIFFERENTIAL Protime & INR Collection Time: 06/20/25 8:44 AM Result Value Ref Range PROTIME 15.0 (H) 9.8 - 13.2 sec INR 1.3 (H) 0.9 - 1.2 Anti XA unfractionated heparin Collection Time: 06/20/25 8:44 AM Result Value Ref Range ANTI XA UFH 0.62 0.30 - 0.70 IU/mL Electrolyte panel Collection Time: 06/20/25 12:38 PM Result Value Ref Range SODIUM 122 (L) 134 - 146 mmol/L POTASSIUM 4.6 3.5 - 5.0 mmol/L CHLORIDE 90 (L) 98 - 109 mmol/L CARBON DIOXIDE 24 22 - 32 mmol/L ANION GAP 8 5 - 15 mmol/L THERAPY Speech Therapy Yes Dysphagia and Cognition Current Level of Function - Physical Therapy Mobility/transfers: Supine to Sit: Max assist (2 assist) (06/19/251409) Sit to Supine: Max assist (2 assist) (06/19/251409) Transfers Other: not appropriate to attempt standing this date due to poor sitting balance and not following commands. Recommend maxi richard lift for safe transfers with staff. (06/19/251409) Ambulation: Gait Gait Distance: patient was dependent for static sitting balance. Tends to push back and to the left. (06/19/251408) Other: not appropriate at this time (06/19/251409) Activity limitations: Activity Tolerance Endurance: Tolerates <30 minutes activity WITHOUT vital sign changes (06/19/251409) Other: room air (06/19/251408) Weight-bearing: Current Level of Function - Occupational Therapy Feeding: Eating Assistance: Total assist (06/19/25 1409) Grooming: Grooming Assistance: Max assist (06/19/25 1409) Bathing:Bathing/Showering Assistance: Max assist (06/19/25 1409) Dressing: Toileting: Activity limitations: Activity Tolerance Endurance: Tolerates <30 minutes activity WITHOUT vital sign changes (06/19/25 1410) Other: room air (06/19/25 140) Assessment/Plan Principal Problem: CVA (cerebral vascular accident) ([facility]) MRI is negative for ischemia Debility Gait difficulty Generalized weakness Encephalopathy EEG in progress Discussed rehab options such as inpatient/acute rehab 3 hours of therapy a day with 24 hours of doctors and nurses care vs skilled care nursing center/subacute rehab 1-2 hours of therapy a day vs home care with home care or outpatient therapy. Reviewed Physical and occupational therapy notes, MAX 2 Inpatient VS SNF pending progress. Currently patient is requiring MAX A and getting therapy notes. Thank you for the referral. Richa Beyer MD [employer] Work Phone: 06-20-2025 Progress note Formatting of t his note might be different from the original. DISCHARGE PLANNING NOTE Pt will need updated PT/OT notes sent to [facility]. When pt/ot worked w him yesterday they rec SNF, but he was much less alert. Pt doing better today. Therapy will work w him tomorrow morning 06/21 to see if IPR appropriate. Barriers: IPR accept, pt/ot to see, precert. Rohini Mcintyre, RN [employer] 06-20-2025 Consult note Formatting of th is note is different from the original. Images from the original note were not included. NEPHROLOGY CONSULT NOTE Date of Admission: 06/17/2025 1:38 PM Reason for Consult: Hyponatremia Referring Physician: Rocio Davis MD PCP: TANYA Lozano History of Present Illness: Dariel Zabala is a 85 y.o. male with a history of hypertension, diabetes mellitus type 2, dyslipidemia, atrial fibrillation on chronic anticoagulation, hypothyroidism, admitted with right-sided weakness and changes in the speech, CT of the brain was negative for acute pathology, CT angiogram revealed right P1/P2 occlusion, INR was 1.25 she received TNK, MRI did not reveal acute infarct , the patient has hyponatremia with a sodium of 127 dropped to 120, it seems that she has a chronic hyponatremia and is on sodium chloride tablets and urea Review of Systems: Unobtainable, patient is confused PMH & PSH Hypertension Diabetes mellitus type 2 Atrial fibrillation on chronic anticoagulation Dyslipidemia Chronic hyponatremia Hypothyroidism Benign prostatic hypertrophy Nasal bone fracture Cervical disc disease Carpal tunnel release Social History: Social History Socioeconomic History Marital status: Spouse name: Not on file Number of children: Not on file Years of education: Not on file Highest education level: Not on file Occupational History Not on file Tobacco Use Smoking status: Never Smokeless tobacco: Never Vaping Use Vaping status: Never Used Substance and Sexual Activity Alcohol use: Not Currently Drug use: Not Currently Sexual activity: Not on file Other Topics Concern Not on file Social History Narrative Not on file Social Drivers of Health Financial Resource Strain: Not on file Food Insecurity: No Food Insecurity (06/18/2025) Hunger Screening Food Insecurity - Worry: Never True Food Insecurity - Inability: Never True Transportation Needs: No Transportation Needs (06/17/2025) PRAPARE - Transportation Lack of Transportation (Medical): No Lack of Transportation (Non-Medical): No Physical Activity: Not on file Stress: Not on file Social Connections: Not on file Interpersonal Safety: Not At Risk (06/17/2025) Humiliation, Afraid, Rape, and Kick questionnaire Fear of Current or Ex-Partner: No Emotionally Abused: No Physically Abused: No Sexually Abused: No Housing Instability: Low Risk (06/17/2025) Housing Instability Housing Instability: No Family History: Unobtainable, patient is confused Allergies: No Known Allergies Home Meds: Medications Prior to Admission Medication Sig Dispense Refill Last Dose/Taking aspirin 81 mg Take 1 tablet (81 mg total) by mouth in the morning. Taking atenoloL (TENORMIN) 25 mg tablet Take 0.5 tablets (12.5 mg total) by mouth in the morning. Taking coenzyme M20-centwsu E 100-5 mg-unit capsule Take 100 mg by mouth in the morning. Taking finasteride (PROSCAR) 5 mg tablet Take 1 tablet (5 mg total) by mouth in the morning. Taking gabapentin (NEURONTIN) 300 mg capsule Take 1 capsule (300 mg total) by mouth in the morning. Taking glimepiride (AMARYL) 2 mg tablet Take 1 tablet (2 mg total) by mouth every morning before breakfast. Taking levothyroxine (SYNTHROID, LEVOTHROID) 25 MCG tablet Take 1 tablet (25 mcg total) by mouth in the morning. Taking omeprazole (PriLOSEC) 40 mg capsule Take 1 capsule (40 mg total) by mouth every morning before breakfast. Taking pravastatin (PRAVACHOL) 40 mg tablet Take 1 tablet (40 mg total) by mouth in the morning. Taking sodium chloride 1,000 mg tablet,soluble Take 1 tablet (1,000 mg total) by mouth in the morning and 1 tablet (1,000 mg total) before bedtime. Taking tamsulosin (FLOMAX) 0.4 mg capsule Take 1 capsule (0.4 mg total) by mouth nightly. Taking warfarin (COUMADIN) 5 mg tablet Take 0.5-1 tablets (2.5-5 mg total) by mouth in the evening. Taking CIALIS 2.5 mg tablet Take 1 tablet (2.5 mg total) by mouth daily as needed for erectile dysfunction. (Patient not taking: Reported on 06/17/2025) Unknown urea (URE-NA) 15 gram powder in packet Take 1 packet (15 g total) by mouth in the morning. Inpatient Meds: atenoloL, 12.5 mg, oral, Daily gabapentin, 300 mg, oral, Daily levothyroxine, 25 mcg, oral, Daily lidocaine, 1 patch, transdermal, Daily pantoprazole, 40 mg, oral, Daily rosuvastatin, 5 mg, oral, Nightly sodium chloride, 1,000 mg, oral, BID warfarin, 2.5 mg, oral, Once per day on Tuesday warfarin, 5 mg, oral, Once per day on Tuesday Inpatient Infusion Meds: heparin, 300-3,500 Units/hr, Last Rate: 1,050 Units/hr (06/20/25 1214) Physical Exam: Admission Weight: Weight: 78 kg (171 lb 15.3 oz) Vitals: Vitals: 06/19/25 2320 06/20/25 0328 06/20/25 0500 06/20/25 0842 BP: 134/68 123/70 137/63 Pulse: 73 65 71 Resp: Temp: 36.4 C (97.6 F) 36.7 C (98 F) 36.6 C (97.9 F) TempSrc: Oral Oral Oral SpO2: 94% Weight: 77.9 kg (171 lb 11.8 oz) Height: INTAKE/OUTPUT: Intake/Output Summary (Last 24 hours) at 06/20/2025 1220 Last data filed at 06/20/2025 0944 Gross per 24 hour Intake 200 ml Output -- Net 200 ml General appearance: alert in no acute distress. Head: Normocephalic, without obvious abnormality, atraumatic Eyes: Conjunctivae unremarkable, pupils reactive Neck: No JVD, no carotid bruit, neck supple, trachea midline cardiovascular: normal S1-S2, No gallops. Respiratory: clear to auscultation B/L, Gastrointestinal: no tenderness, no guarding, no hepatosplenomegaly could be appreciated. Muscloskeletal: No LE edema, no active arthritis, normal range of movement Neurology: Moves all extremities, alert oriented Skin: no rash, no petechia Psychiatric, no anxiety, no suicidal ideas Lymphatic: no lymphadenopathy, no lymphedema Labs: Results from last 7 days Lab Units 06/20/25 0844 06/20/25 0042 06/19/25 1927 06/19/25 0718 06/18/25 1528 06/18/25 0343 06/17/25 1653 SODIUM mmol/L 124* 122* 120* 123* -- 127* 127* POTASSIUM mmol/L 4.3 4.3 4.7 4.3 -- 4.3 4.5 CHLORIDE mmol/L 89* 90* 89* 88* -- 93* 93* CO2 mmol/L 27 24 24 26 -- 24 26 BUN mg/dL 12 -- -- 10 -- 10 10 CREATININE mg/dL 0.73 -- -- 0.73 -- 0.71 0.75 CALCIUM mg/dL 9.0 -- -- 8.8 -- 9.1 9.2 MAGNESIUM mg/dL -- -- -- 2.3 1.6* -- 1.7* PHOSPHORUS mg/dL -- -- -- -- -- -- 3.3 Results from last 7 days Lab Units 06/20/25 0844 06/19/25 0718 06/18/25 1528 06/18/25 0343 WBC x10E9/L 6.5 7.9 -- 5.4 HEMOGLOBIN g/dL 13.3 13.4 13.9 12.7* HEMATOCRIT % 38.1* 38.7* -- 36.0* PLATELETS X10E9/L 204 200 214 251 Results from last 7 days Lab Units 06/19/25 0718 06/18/25 1528 06/17/25 1653 MAGNESIUM mg/dL 2.3 1.6* 1.7* Lab Results Component Value Date CALCIUM 9.0 06/20/2025 No results found for: IRON , TIBC , FERRITIN Impression: Acute CVA with right-sided weakness, CT angiogram revealed right P1/P2 occlusion, he received TNK 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 ANY QUESTIONS FEEL FREE TO CALL: 1. OFFICE [phone] 2. ANSWERING SERVICE:[phone] YOU CAN CONTACT ME THROUGH [employer]URE CHAT DURING THE DAYTIME HOURS, IF NO RESPONSE AFTER 5 MINUTES CALL THE ANSWERING SERVICE This note was created with the assistance of a speech-recognition program. Although the intention is to generate a document that actually reflects the content of the visit, no guarantees can be provided that every mistake has been identified and corrected by editing. [facility] 08-07-2025 Progress note Formatting of t his note is different from the original. DISCHARGE PLANNING NOTE I received a voice mail from Franc at [facility] phone [phone], she says she has left a few messages for an update for patient. This is the only vm I have received. Sending an [employer] chat to Rohini / Vivienne / Mesha with information [facility] 06-19-2025 Plan of care note Problem: Pain Goal: Patient goal is pain score less than 4, able to rest, and participant in treatment plan as appropriate Description: INTERVENTIONS: 1. Encourage patient or legal personal banking representative to report early pain and ask for pain medicine when needed 2. Assess pain using appropriate pain scale and include the scale used when documenting 3. Administer analgesics based on type and severity of pain and evaluate response within appropriate time frame 4. Implement non-pharmacological measures as appropriate and evaluate response 5. Consider cultural and social influences on pain and pain management 6. Notify LIP if interventions ineffective or patient reports new pain 7. Monitor vital signs including pulse ox, end-tidal CO2 based on pain intervention 8. Reassess pain per policy 9. Teach patient or legal personal banking representative interventions for comforting Outcome: Progressing Note: Evaluation of progress towards goal: pt unable to verbalize pain at this time FACES pain scale rating utilized no obvious signs of distress or pain Problem: Safety Goal: Patient will be injury free during hospitalization Description: INTERVENTIONS: 1. Assess patient's risk for falls and implement fall prevention plan of care per policy 2. Provide and maintain a safe environment 3. Proper use of double Identifiers 4. Medication administration using the 5 rights 5. Hand hygiene 6. Specimens are labeled at the bedside 7. Instruct patient/ patient personal banking representative about use of safety devices 8. Include patient/ patient personal banking representative in decisions related to safety Outcome: Progressing Note: Evaluation of progress towards goal: Patient injury free at current time Problem: Infection Goal: Absence of infection during hospitalization Description: INTERVENTIONS 1. Assess and monitor for signs and symptoms of infection. 2. Monitor lab/diagnostic results. 3. Monitor all insertion sites i.e., indwelling lines, tubes and drains. 4. Monitor endotracheal (as able) and nasal secretions for changes in amount and color. 5. Administer medications as ordered. 6. Instruct and encourage patient and family to use good hand hygiene technique. 7. Identify and instruct patient/patient personal banking representative in use of appropriate isolation precautions for identified infection/symptoms. 8. Provide and discuss with patient/patient personal banking representative on educational MDRO sheet. 9. Encourage and monitor nutritional status daily and consult water commissioner if indicated. 10. Implement neutropenic guidelines as needed. Outcome: Progressing Note: Evaluation of progress towards goal: No s/s of infection at this time Problem: Potential for Compromised Skin Integrity Goal: Skin integrity is maintained or improved Description: Patient's goal is: INTERVENTIONS 1. Perform initial skin assessment on admission and as needed 2. Turn patient every 2 hours and PRN 3. Relieve pressure to bony prominences 4. Avoid shearing 5. Keep skin clean and dry 6. Alternate a full bath with partial baths for elderly 7. Apply lotion/moisturizer on skin 8. Monitor patient's hygiene practices 9. Float heels 10. Collaborate with interdisciplinary team and initiate plans and interventions as needed Outcome: Progressing Note: Evaluation of progress towards goal: skin integrity maintained Goal: Patient's nutritional intake is adequate Description: Patient's goal is: INTERVENTIONS 1. Assess and monitor food intake and supplements, patient food preferences, nausea, vomiting, labs, oral cavity (gums, teeth, tongue, mucosa), proper denture fit, and cultural beliefs 2. Monitor for signs of hypoglycemia and hyperglycemia 3. Collaborate with interdisciplinary team and initiate plan and interventions as ordered 4. Monitor patient's weight 5. Assist patient with meals/food selection 6. Assist patient with eating 7. Allow adequate time for meals 8. Provide pleasant environment during mealtime 9. Increase social contact during mealtimes 10. Plan activities to conserve energy 11. Encourage/perform oral hygiene as appropriate 12. Encourage patient to take dietary supplement as ordered 13. Collaborate with clinical water commissioner 14. Include patient/ patient's personal banking representative in decisions related to nutrition Outcome: Progressing Note: Evaluation of progress towards goal: nutritional intake adequate Problem: Urinary Incontinence Goal: Perineal skin integrity is maintained or improved Description: INTERVENTIONS 1. Assess genitourinary system, perineal skin, labs (urinalysis), and history of incontinence to include past management, aggravating, and alleviating factors 2. Keep skin clean and dry 3. Apply skin protectant 4. Develop skin care regimen 5. Provide privacy when changing patients incontinence device to maintain their dignity 6. Consider placing an indwelling catheter 7. Collaborate with interdisciplinary team and initiate plans and interventions as needed Outcome: Progressing Note: Evaluation of progress towards goal: skin integrity maintained Problem: Neurological Deficit Goal: Neurological status is stable or improving Description: Patient's goal is: INTERVENTIONS 1. Complete Neurological assessment as indicated/ordered 2. Initiate measures to prevent increased intracranial pressure 3. Monitor and assess patient's level of consciousness, motor function, sensory function, and level of assistance needed for ADLs 4. Monitor and report changes from baseline 5. Maintain blood pressure and fluid volume within ordered parameters to optimize cerebral perfusion and minimize risk of hemorrhage 6. Monitor labs and diagnostic tests 7. Administer anti-seizure medications as ordered 8. Maintain airway, patient safety and administer oxygen as ordered 9. Monitor patient for seizure activity, document and report duration and description of seizure to LIP 10. If seizure occurs, turn patient to side and suction secretions as needed 11. Reorient patient post seizure 12. Seizure pads on all 4 side rails 13. Instruct patient/family to notify RN of any seizure activity 14. Instruct patient/family to call for assistance with activity based on assessment 15. Utilize bleeding precautions if thrombolytic given Outcome: Not Progressing Note: Evaluation of progress towards goal: pt oriented to person only unable to answer all other questions Problem: Activity Intolerance/Impaired Mobility Goal: Mobility/activity is maintained at optimum level for patient Description: Patient's goal is: INTERVENTIONS 1. Assess and monitor patient barriers to mobility and need for assistive/adaptive devices 2. Assess patient's emotional response to limitations 3. Collaborate with interdisciplinary teams and initiate plans and interventions as ordered 4. Encourage independent activity per tolerance 5. Maintain proper body alignment 6. Perform active/passive ROM as tolerated/ordered 7. Coordinate activities to conserve energy 8. Reposition patient 9. Ensure adequate rest/sleep time Outcome: Progressing Note: Evaluation of progress towards goal: Mobility/activity is maintained at optimum level for patient Problem: Moderate - High Risk Fall Score Description: Valenzuela Fall Score of =/> 25 or indicated by [facility] Assessment Goal: Patient should be free from fall Description: Interventions: 1. [place] to environment 2. Hourly rounds addressing the 4 P's (Pain, Positioning, Possessions, Potty) 3. Clear area of hazards (spills, clutter, electrical cords, unnecessary equipment) 4. Place equipment (bed & TV controls, call light, phone, urinal) within reach 5. Encourage patient to wear glasses and hearing aides as appropriate 6. Maintain bed in lowest position 7. Lock wheels on bed/wheelchair 8. Provide adequate lighting, including night light 9. Assess need for additional bedding, food/fluids, pain med's prior to sleep/routinely 10. Provide gripper slippers or personal non-skid footwear 11. Teach patient and patient personal banking representative to maintain environment for safety and engage in all aspects of fall prevention program 12. Remind patient to call for help before getting out of bed 13. Initiate bed/chair/exit alarms supportive devices as appropriate, (chair wedge, no-skid floor mat, raised edge mattress, hip protectors) 14. Locate patient bed assignment for optimal visualization 15. Evaluate and identify Safe Patient Handling Equipment needs 16. Provide supervision when out of bed or chair 17. Utilize gait belt as needed to assist with ambulation 18. Place adaptive equipment (cane, walker) within reach 19. Request patient personal banking representative bring adaptive equipment/mobility aids from home or obtain and provide as needed 20. Consult pharmacy regarding effects of med's affecting mobility, cognition, and alternatives 21. Obtain physician order for PT if risk factors associated with mobility are present 22. Obtain physician order for OT as appropriate 23. Utilize diversional activities 24. Educate patient and patient personal banking representative how to maintain a safe environment during visitation times (notify nurse prior to leaving bedside) 25. Consider appropriateness of medical or non-biomedical electronics technician 26. Set up voiding schedule as appropriate (every 2 hours) Outcome: Progressing Note: Evaluation of progress towards goal: pt free from fall at this time safety measures in place [facility] 06-19-2025 Progress note Formatting of t his note is different from the original. Physical Therapy Evaluation Discharge Recommendations for Safe Patient Transition Discharge Recommendations: Post acute - moderate Post Acute Moderate Rehab Needs: Recommend moderate intensity rehab, Tolerate 1-2 hrs of therapy 3-5 days/wk, Subacute or chronic functional impairment Current Impairments Informing Therapy Recommendation: Ambulation status/safety, Cognition, Fall risk 6 Clicks: Basic Mobility Turning from your back to your side while in a flat bed without using bed rails?: Total Moving from lying on your back to sitting on side of flat bed without using bed rails?: Total Moving to and from bed to a chair (including w/c)?: Total Standing up from a chair using your arms (e.g. w/c or bedside chair)?: Total To walk in hospital room?: Total Climbing 3-5 steps with a railing?: Total Scoring 6 Clicks: Basic Mobility Raw Score: 6 [facility] G Code Modifier: CN SwePASS score = 4/36 Pt is an 85 yo male admit 06/17 with L sided weakness and aphasia while at Coumadin clinic. NIHSS = 13. Pt with recent hospitalization 06/02 s/p fall while adjusting lawn chair with nasal bone fracture and persistent epistaxis. CT brain - no acute CTA - R P1/P2 occlusion. TNK given and transfer to [facility]. On arrival, NIHSS = 0 CT perfusion - possible deficit L anterior temporal horn - likely artifact Speech therapy - moderate to severe receptive/expressive language deficits MRI brain - no acute infarct; mild small vessel ischemic changes EEG - abnormal due to the presence of generalized background slowing suggestive of bi-hemispheric cerebral dysfunction that can be seen in post ictal states, metabolic, hypoxic or toxic encephalopathies, sedative medication use or primary neurological disorders. Echo and carotid duplex pending Pt with confusion, agitation on 06/18 at shift change. Pt has been lethargic, not following commands 06/19 - ERIN Palumbo aware. Past Medical History: Diagnosis Date [place] BPH (benign prostatic hyperplasia) Broken nose CV[place]cerebral vascular [place] 06/17/2025 [place] Epistaxis Hypertension Hyponatremia secondary to SIADH Hypothyroid Lumbar spondylosis TIA (transient ischemic attack) Past Surgical History: Procedure Laterality Date NECK SURGERY plate in neck per Modified [place] Level of Disability: Severe disability 0= No symptom at all 1= No significant disability despite symptoms: able to carry out all usual duties and activities 2= Slight disability: unable to carry out all previous activities, but able to look after own affairs without assistance 3= Moderate disability: requiring some help, but able to walk without assistance 4= Moderately severe disability: unable to walk without assistance and unable to attend to own bodily needs without assistance 5- Severe disability: bedridden, incontinent and requiring constant nursing care and attention. 6= Therapy Plan Need for skilled Physical Therapy to address deficits in functional mobility due to a status decline resulting from admit for stroke work up. PT Treatment/Interventions: Functional transfer training, LE strengthening/ROM, Patient/family training, Equipment eval/education, Balance, Bed mobility, Functional activities, Neuromuscular reeducation PT Frequency: 4-5days/week PT Duration: 07/13/25 Assessment Patient Assessment Therapy Problem List: Decreased balance, Decreased cognition, Decreased mobility, Decreased safe judgement during ADL, Decreased UE strength, Decreased LE strength Patient Response to Treatment: Tolerated evaluation without adverse reaction, Slow progress, decreased activity tolerance, Slow progress, cognitive deficits Mood/Affect: Flat Rehab Prognosis: Good, With continued PT status post acute discharge Visit RN Communication: Yes Medical Record Reviewed: Yes PT Type of Visit: Evaluation Precautions Activity: act as tolerated Equipment: repositioning sling, IV, bed alarm Telemetry/Elementary Instructional Coach: Yes Oxygen Used: room air Other: high fall risk, L sided weakness, aphasia Subjective Physical Therapy Comments: Pt lethargic this date, able to awaken but drifts off and difficulty following most commands - RN Deepali britt Pain Assessment Pain Assessment: (Pt indicated back pain with supine to sit and with L hip ROM but unable to localize or rate due to cognition) Home Living Type of Home: House Home Layout: One level, Able to live on main level with bedroom/bathroom, Stairs to enter with rails Stairs to Enter: 2 from cold working supervisor Rails: Right Stairs in Home: 0 Bathroom Shower/Tub: Walk-in shower Bathroom Toilet: Standard Home Equipment: Rolling walker Other : Home info from EMR review of recent therapy eval at [facility] - pt not able to answer questions this date and no family present. Pt not using AD lighter captain Prior Function Lives With: Spouse (Leelee) Level of Mobility: Independent with ADLs and functional transfers or gait Homemaking Assistance: Independent Vocational: Retired Other: Per EMR review, pt indep at baseline for mobility and ADLs, driving. Pt had recent fall 06/02/25 while adjusting lawn chair resulting in nasal bone fx and persistent epistaxis. Hearing / Speech / Vision Hearing: Hard of hearing/hearing concerns Speech: Expressive aphasia, Receptive aphasia (minimal verbalizations this date despite prompting, difficulty following commands) Other: R gaze preference noted but unable to fully assess Cognition Overall Cognitive Status: Exceptions to Within Functional Limits Arousal/Alertness: Lethargic Attention Span: Difficulty attending to directions Memory: Unable to assess Orientation Level: Oriented to person (Pt able to state his name, not able to answer any other questions this date) Following Commands: (not following most commands this date despite max verbal and physical prompting.) Sensation Overall Sensation Status: Unable to Assess (due to cognition) Bed Mobility Supine to Sit: Max assist (2 assist) Sit to Supine: Max assist (2 assist) Other: minimal participation from pt this date. Pt leans posteriorly and to the L in sitting. Transfers Other: not appropriate to attempt standing this date due to poor sitting balance and not following commands. Recommend maxi richard lift for safe transfers with staff. Gait Other: not appropriate at this time Balance Balance Evaluation: Exceptions to Functional Limits Sitting Balance: Static: Poor Sitting Balance: Dynamic: Poor Other: Pt sat at EOB x 7 mins with mod to max A support for balance. Pt leans to the L and posteriorly. Not appropriate to attempt standing RLE Assessment: (Unable to follow commands for MMT, resistant at times to ROM, some activity movement noted RLE>LLE) LLE Assessment: (Minimal active movement noted, PROM WFL with little resistance.) Activity Tolerance Endurance: Tolerates <30 minutes activity WITHOUT vital sign changes Plan Physical Therapy Care Plan Physical Therapy Care Plan (Active) Template: PT - Physical Therapy Problem: Activity Tolerance Dates: Start: 06/19/25 Disciplines: PT Goal: Tolerate 30 minutes of activity WITH rest breaks Dates: Start: 06/19/25 Expected End: 07/14/25 Description: Goal Description: for supine, seated and supported standing activities for improved mobility Disciplines: PT Problem: Bed Mobility Dates: Start: 06/19/25 Disciplines: PT Goal: Patient will perform bed mobility with Minimum Assist Dates: Start: 06/19/25 Expected End: 07/14/25 Description: Goal Description: Disciplines: PT Problem: Sitting Balance Dates: Start: 06/19/25 Disciplines: PT Goal: Improve balance to good Dates: Start: 06/19/25 Expected End: 07/14/25 Description: Static Dynamic with UE support as needed for safe ADLs and transfers Disciplines: PT Problem: Standing Balance Dates: Start: 06/19/25 Disciplines: PT Goal: Improve balance to fair Dates: Start: 06/19/25 Expected End: 07/14/25 Description: Static Dynamic with UE support/SPH equipment for safe mobility Disciplines: PT Problem: Transfers Dates: Start: 06/19/25 Disciplines: PT Goal: Patient will perform transfers with Moderate Assist Dates: Start: 06/19/25 Expected End: 07/14/25 Description: Goal Description: sit to stand with UE support Disciplines: PT Physical Therapy Care Plan (Resolved) There are no resolved problems. Principal Problem: CVA (cerebral vascular accident) ([facility]) [facility] 06-19-2025 Progress note Formatting of t his note is different from the original. Occupational Therapy Evaluation Discharge Recommendations for Safe Patient Transition Discharge Recommendations: Post acute - moderate Post Acute Moderate Rehab Needs: Recommend moderate intensity rehab, Tolerate 1-2 hrs of therapy 3-5 days/wk, Subacute or chronic functional impairment Current Impairments Informing Therapy Recommendation: Ambulation status/safety, Cognition, Fall risk, ADL status, Communication needs, Endurance level Modified [place] Level of Disability: Severe disability 0= No symptom at all 1= No significant disability despite symptoms: able to carry out all usual duties and activities 2= Slight disability: unable to carry out all previous activities, but able to look after own affairs without assistance 3= Moderate disability: requiring some help, but able to walk without assistance 4= Moderately severe disability: unable to walk without assistance and unable to attend to own bodily needs without assistance 5- Severe disability: bedridden, incontinent and requiring constant nursing care and attention. 6= 6 Clicks: Daily Activity Putting on and taking off regular lower body clothing?: A lot Bathing (including washing, rinsing, drying)?: A lot Toileting, which includes using toilet, bedpan or urinal?: A lot Putting on and taking off regular upper body clothing?: A lot Taking care of personal grooming such as brushing teeth?: A lot Eating meals?: A lot Scoring Daily Activity Raw Score: 12 [facility] G Code Modifier: CL Modifed chip index; 0/20 Occupational Profile Patient is a 85 year old male admitted with left side weakness and aphasia. CT brain: no acute. CTA: right P1/P2 occlusion. TNK given. CT perfusion: possible deficit left anterior temporal horn, likely artifact. MRI brain: no acute infarct, mild small vessel ischemic changes. Echo: results pending. Carotid duplex: pending. See below for past medical and past surgical history. Past Medical History: Diagnosis Date Atrial [place] BPH (benign prostatic hyperplasia) Broken nose CVA [place]cerebral vascular [place]) [place] 06/17/2025 [place] Epistaxis Hypertension Hyponatremia secondary to SIADH Hypothyroid Lumbar spondylosis TIA (transient ischemic attack) Past Surgical History: Procedure Laterality Date NECK SURGERY plate in neck per Therapy Plan Need for skilled Occupational Therapy to address deficits in ADL independence and functional mobility due to a status decline resulting from rule out stroke. OT Treatment/Interventions: ADL retraining, Cognitive reorientation, Balance, Bed mobility, UE strengthening/ROM, Functional transfer training, Patient/family training, Home management, Neuromuscular reeducation, Functional activities, Equipment eval/education OT Frequency: 4-5days/week OT Duration: jul 19, 2025 Assessment Patient Assessment Therapy Problem List: Decreased ADL status, Decreased balance, Decreased cognition, Decreased endurance, Decreased high-level ADLs, Decreased mobility, Decreased safe judgement during ADL, Decreased self-care trans, Decreased UE ROM, Decreased UE strength, Decreased LE strength Patient Response to Treatment: Slow progress, cognitive deficits, Slow progress, decreased activity tolerance Mood/Affect: Flat Rehab Prognosis: Good, With continued OT status post acute discharge Visit RN Communication: Yes Medical Record Reviewed: Yes OT Type of Visit: Evaluation Precautions Activity: advance activity as tolerated per early mobility guidelines. Equipment: telemetry, IV Telemetry/Elementary Instructional Coach: Yes Oxygen Used: room air Other: fall risk, cognition. Pain Assessment Pain Assessment: (patient indicated back pain with passive movement however, was not able to rate due to cognition.) Home Living Type of Home: House Home Layout: One level, Performs ADLs on one level, Able to live on main level with bedroom/bathroom Stairs to Enter: 2 in with right rail Hand Rails: Right Bathroom Shower/Tub: Walk-in shower Home Equipment: Rolling walker Other : patient is not able to provide due to cognition. Family not in room at time of evaluation Prior Function Lives With: Spouse (lives wtih , Leelee.) Other: patient was not able to provide prior function info due to cognition. Was last independent at the end of May. Patient was able to drive at that time per EMR ADL / IADL Where Assessed: Supine, bed, Edge of bed (patient returned to supine at end of session.) Eating Assistance: Total assist Grooming Assistance: Max assist Bathing/Showering Assistance: Max assist Toilet/Commode Assistance: Max assist UE Dressing Assistance: Max assist LE Dressing Assistance: Max assist Footwear Assistance: Max assist Other: attempted facial care. Patient was not able to initiate. Hand over hand assist attempted. Patient was able to bring washcloth to face on one occasion. Home Management - IADL Other: attempted facial care. Patient was not able to initiate. Hand over hand assist attempted. Patient was able to bring washcloth to face on one occasion. Hearing / Speech / Vision Hearing: Hard of hearing/hearing concerns Speech: Other (Comment) (able to say a few words with max tactile prompting.) Cognition Overall Cognitive Status: Exceptions to Within Functional Limits Other: patient was not able to follow simple commands for the most part. patient was able to speak a few words with max tactile prompting. Patient is dependent for cognition at this time. Sensation Overall Sensation Status: Unable to Assess (due to cognition) Bed Mobility Supine to Sit: Max assist (max assist of two.) Sit to Supine: Max assist (max assist of two.) Transfers Other: patient is dependent for static sitting balance. Gait Gait Distance: patient was dependent for static sitting balance. Tends to push back and to the left. Balance Sitting Balance: Static: Poor Sitting Balance: Dynamic: Poor Other: able to static sit at edge of bed for 7 minutes while engage in ADL task of facial care. RUE Assessment: (patient is not able to follow commands for manual muscle test. patient was able to move right arm non purposeful to wipe face. generalized weakness.) LUE Assessment: (patient was not able to follow commands for manual musce test. Generalized weakness.) Activity Tolerance Endurance: Tolerates <30 minutes activity WITHOUT vital sign changes Other: room air Plan Occupational Therapy Care Plan Occupational Therapy Care Plan (Active) Template: OT - Occupational Therapy Problem: Activity Tolerance Dates: Start: 06/19/25 Disciplines: OT Goal: Tolerate 30 minutes of activity WITH rest breaks Dates: Start: 06/19/25 Expected End: 07/19/25 Description: Goal Description: Disciplines: OT Problem: Bed Mobility Dates: Start: 06/19/25 Disciplines: OT Goal: Patient will perform bed mobility with Minimum Assist Dates: Start: 06/19/25 Expected End: 07/19/25 Description: Goal Description: Disciplines: OT Problem: Cognition Dates: Start: 06/19/25 Disciplines: OT Goal: Improve cognition Dates: Start: 06/19/25 Expected End: 07/19/25 Description: Improve cognition to follow one step commands 50% of the time. Disciplines: OT Problem: Other (Customize) Dates: Start: 06/19/25 Disciplines: OT Goal: Improve Dates: Start: 06/19/25 Expected End: 07/19/25 Description: Engage in simple ADL tasks with set up independently. Disciplines: OT Problem: ROM Dates: Start: 06/19/25 Disciplines: OT Goal: Improve ROM Dates: Start: 06/19/25 Expected End: 07/19/25 Description: Improve bilateral upper extremity active range of motion to functional during ADL tasks. Disciplines: OT Problem: Sitting Balance Dates: Start: 06/19/25 Disciplines: OT Goal: Improve balance to good Dates: Start: 06/19/25 Expected End: 07/19/25 Description: Good static sitting balance. Disciplines: OT Occupational Therapy Care Plan (Resolved) There are no resolved problems. Principal Problem: CVA (cerebral vascular accident) ([facility]) [facility] 06-19-2025 Nurse Note RN concerned as patient is extremely drowsy not following commands or speaking, RN called neuro resident Dr. Davis who states she thinks patient is just tired and will re assess later. [facility] 06-19-2025 Progress note Formatting of t his note is different from the original. Ongoing Assessment for Discharge Needs Reviewed discharge milestones and patient needs related to discharge plan. Current estimated discharge date of Jun 20, 2025 has been reviewed by treatment team. Ongoing Assessment for Discharge Needs Flowsheet Row Most Recent Value Services Requested Patient expects to be discharged to: home Does the patient wish to have family/friend/caregiver involved in their discharge planning? Yes Does the patient plan to return home to a community setting? Yes Has the family/friend/caregiver been assessed to determine their readiness, skills, capacities, and resources to provide post hospital care? Yes, Caregiver Assessment Completed Discharge Disposition Home with home health services Facility/Service Name [facility] Case discussed in daily transition rounds and chart reviewed by CN. Barriers to discharge include PT/OT, PMR to see, Discharge Plan remains: Home with HHC vs IPR. [facility] will accept. [facility]- will need PT/OT notes as soon as they are in. CN will continue to follow and is available should any further needs arise. - Dawson Yost RN 06/19/25 8:40 AM [facility] 06-18-2025 Plan of care note Problem: Pain Goal: Patient goal is pain score less than 4, able to rest, and participant in treatment plan as appropriate Description: INTERVENTIONS: 1. Encourage patient or legal personal banking representative to report early pain and ask for pain medicine when needed 2. Assess pain using appropriate pain scale and include the scale used when documenting 3. Administer analgesics based on type and severity of pain and evaluate response within appropriate time frame 4. Implement non-pharmacological measures as appropriate and evaluate response 5. Consider cultural and social influences on pain and pain management 6. Notify LIP if interventions ineffective or patient reports new pain 7. Monitor vital signs including pulse ox, end-tidal CO2 based on pain intervention 8. Reassess pain per policy 9. Teach patient or legal personal banking representative interventions for comforting Outcome: Progressing Note: Evaluation of progress towards goal: Pt able to rate pain no a scale of 1-10. PRN pain medications available, see MAR. Problem: Safety Goal: Patient will be injury free during hospitalization Description: INTERVENTIONS: 1. Assess patient's risk for falls and implement fall prevention plan of care per policy 2. Provide and maintain a safe environment 3. Proper use of double Identifiers 4. Medication administration using the 5 rights 5. Hand hygiene 6. Specimens are labeled at the bedside 7. Instruct patient/ patient personal banking representative about use of safety devices 8. Include patient/ patient personal banking representative in decisions related to safety Outcome: Progressing Note: Evaluation of progress towards goal: Pt should remain safe during this shift. Items and call light within reach, bed in lowest position and locked, side rails up 2/4. Problem: Infection Goal: Absence of infection during hospitalization Description: INTERVENTIONS 1. Assess and monitor for signs and symptoms of infection. 2. Monitor lab/diagnostic results. 3. Monitor all insertion sites i.e., indwelling lines, tubes and drains. 4. Monitor endotracheal (as able) and nasal secretions for changes in amount and color. 5. Administer medications as ordered. 6. Instruct and encourage patient and family to use good hand hygiene technique. 7. Identify and instruct patient/patient personal banking representative in use of appropriate isolation precautions for identified infection/symptoms. 8. Provide and discuss with patient/patient personal banking representative on educational MDRO sheet. 9. Encourage and monitor nutritional status daily and consult water commissioner if indicated. 10. Implement neutropenic guidelines as needed. Outcome: Progressing Note: Evaluation of progress towards goal: Pt should remain free from infection during this shift. Standard precautions used during care. Problem: Knowledge Deficit Goal: Patient/patient personal banking representative demonstrates understanding of disease process, treatment plan, medications, and discharge instructions Description: INTERVENTIONS 1. Complete learning assessment and assess knowledge base 2. Provide teaching at level of understanding 3. Provide teaching via preferred learning method(s) Outcome: Progressing Note: Evaluation of progress towards goal: Knowledge assessed, questions answered to the patients level of understanding. Will continue to assess their current knowledge and educate as needed. Problem: Potential for Compromised Skin Integrity Goal: Skin integrity is maintained or improved Description: Patient's goal is: INTERVENTIONS 1. Perform initial skin assessment on admission and as needed 2. Turn patient every 2 hours and PRN 3. Relieve pressure to bony prominences 4. Avoid shearing 5. Keep skin clean and dry 6. Alternate a full bath with partial baths for elderly 7. Apply lotion/moisturizer on skin 8. Monitor patient's hygiene practices 9. Float heels 10. Collaborate with interdisciplinary team and initiate plans and interventions as needed Outcome: Progressing Note: Evaluation of progress towards goal: Pt skin integrity is maintained. Measures to reduce moisture and decrease risk of skin breakdown have been implemented. Problem: Neurological Deficit Goal: Neurological status is stable or improving Description: Patient's goal is: INTERVENTIONS 1. Complete Neurological assessment as indicated/ordered 2. Initiate measures to prevent increased intracranial pressure 3. Monitor and assess patient's level of consciousness, motor function, sensory function, and level of assistance needed for ADLs 4. Monitor and report changes from baseline 5. Maintain blood pressure and fluid volume within ordered parameters to optimize cerebral perfusion and minimize risk of hemorrhage 6. Monitor labs and diagnostic tests 7. Administer anti-seizure medications as ordered 8. Maintain airway, patient safety and administer oxygen as ordered 9. Monitor patient for seizure activity, document and report duration and description of seizure to LIP 10. If seizure occurs, turn patient to side and suction secretions as needed 11. Reorient patient post seizure 12. Seizure pads on all 4 side rails 13. Instruct patient/family to notify RN of any seizure activity 14. Instruct patient/family to call for assistance with activity based on assessment 15. Utilize bleeding precautions if thrombolytic given Outcome: Progressing Note: Evaluation of progress towards goal: Neurologic status remain stable per Q4 neuro checks. Problem: Activity Intolerance/Impaired Mobility Goal: Mobility/activity is maintained at optimum level for patient Description: Patient's goal is: INTERVENTIONS 1. Assess and monitor patient barriers to mobility and need for assistive/adaptive devices 2. Assess patient's emotional response to limitations 3. Collaborate with interdisciplinary teams and initiate plans and interventions as ordered 4. Encourage independent activity per tolerance 5. Maintain proper body alignment 6. Perform active/passive ROM as tolerated/ordered 7. Coordinate activities to conserve energy 8. Reposition patient 9. Ensure adequate rest/sleep time Outcome: Progressing Note: Evaluation of progress towards goal: Mobility maintained at optimal level for patient. Problem: Moderate - High Risk Fall Score Description: Val[place]uela Fall Score of =/> 25 or indicated by [facility] Assessment Goal: Patient should be free from fall Description: Interventions: 1. [place] to environment 2. Hourly rounds addressing the 4 P's (Pain, Positioning, Possessions, Potty) 3. Clear area of hazards (spills, clutter, electrical cords, unnecessary equipment) 4. Place equipment (bed & TV controls, call light, phone, urinal) within reach 5. Encourage patient to wear glasses and hearing aides as appropriate 6. Maintain bed in lowest position 7. Lock wheels on bed/wheelchair 8. Provide adequate lighting, including night light 9. Assess need for additional bedding, food/fluids, pain med's prior to sleep/routinely 10. Provide gripper slippers or personal non-skid footwear 11. Teach patient and patient personal banking representative to maintain environment for safety and engage in all aspects of fall prevention program 12. Remind patient to call for help before getting out of bed 13. Initiate bed/chair/exit alarms supportive devices as appropriate, (chair wedge, no-skid floor mat, raised edge mattress, hip protectors) 14. Locate patient bed assignment for optimal visualization 15. Evaluate and identify Safe Patient Handling Equipment needs 16. Provide supervision when out of bed or chair 17. Utilize gait belt as needed to assist with ambulation 18. Place adaptive equipment (cane, walker) within reach 19. Request patient personal banking representative bring adaptive equipment/mobility aids from home or obtain and provide as needed 20. Consult pharmacy regarding effects of med's affecting mobility, cognition, and alternatives 21. Obtain physician order for PT if risk factors associated with mobility are present 22. Obtain physician order for OT as appropriate 23. Utilize diversional activities 24. Educate patient and patient personal banking representative how to maintain a safe environment during visitation times (notify nurse prior to leaving bedside) 25. Consider appropriateness of medical or non-biomedical electronics technician 26. Set up voiding schedule as appropriate (every 2 hours) Outcome: Progressing Note: Evaluation of progress towards goal: Pt should remain free from fall during this shift. Bed in lowest position and locked, side rails up 2/4, personal items and call light within reach, non skid socks applied, environment clear of hazards. [facility] 06-18-2025 Nurse Note Patient confused, on heparin drip, constantly trying to get out of bed, hitting, kicking and trying to bite staff. Unable to follow direction. Dr Davis notified, says will order seroquel. Notified of QT from EKG done 06/17 at [place]. [facility] 06-18-2025 Progress note Formatting of t his note might be different from the original. DISCHARGE PLANNING NOTE Referral sent to [facility] in [place] (P# ; F# ) [facility] 06-18-2025 Progress note Formatting of t his note might be different from the original. DISCHARGE PLANNING NOTE Referral sent to. [facility] in [place], [place] (P# ; F# ) [facility] 06-18-2025 Progress note Formatting of t his note is different from the original. Images from the original note were not included. Initial Assessment Initial Assessment Flowsheet Row Most Recent Value Patient Information Initial Pre-Hospitalization Assessment Completed? Completed Primary Caregiver Spouse Support System Spouse/Significant Other, Family Members Discharge Planning Living Arrangements Private Residence, Spouse/significant other Assistance Needed none Type of Residence Private residence Private Residence 1 story Can patient reside on one level? Yes Residence Accessibility Steps into home Number of Steps 2 Home Care Services No Stressors Income Information Income Information Retired/Pension/Social Security IP Hunger/Food Insecurity Screening Within the past 12 months we worried whether our food would run out before we got money to buy more. Never True Within the past 12 months the food we bought just didn't last and we didn't have money to get more. Never True Hunger Screening Complete? Yes Pt. Eligible for Food / Voucher No Caregiver/Family Member Caregiver/Family Member spouse- Leelee Caregiver/Family Member Involved with Current Plan of Care Yes Caregiver/Family Member in Agreement with Current Plan of Care Yes Caregiver/Support System Limitations Patient/Caregiver Goals Patient/Caregiver Goals Home with Home Care, Inpatient Rehab Community Provider Referral Services Requested Patient expects to be discharged to: home Does the patient wish to have family/friend/caregiver involved in their discharge planning? Yes Does the patient plan to return home to a community setting? Yes Has the family/friend/caregiver been assessed to determine their readiness, skills, capacities, and resources to provide post hospital care? Yes, Caregiver Assessment Completed Discharge Disposition Acute rehab, Home with home health services [employer] met with patient, introduced self, and explained role. Patient educated on safe discharge plan. Pt admitted 06/17/2025 with CVA (cerebral vascular [place]) [place] [I63.9] per chart review. Consults: Neurology Discharge Barriers per Daily Transition Rounds and chart review: PT/OT, s/p TNK-bedrest, MRi, echo. Past Medical History: Diagnosis Date Atrial fibrillation [place] BPH (benign prostatic hyperplasia) Broken nose CVA (cerebral vascular accident) [place] 06/17/2025 Diabetes ([facility] [facility] [place] Hypertension Hyponatremia secondary to SIADH Hypothyroid Lumbar spondylosis TIA (transient ischemic attack) Prior to admission patient was living with spouse/significant other and self care. Medical equipment patient used prior to admission includes: None. Patient denies need for transportation/ food/ prescription medication assistance resources. Patient's caregiver has been assessed to determine readiness, skills, capabilities, and resources to provide post hospital care. Caregiver's pre-stroke responsibilities include driving patient to appointments, shopping and assisting with housekeeping room attendant. Caregiver's personal limitations include Patient's feels she can not drive long distances. Patient would need transportation home. Other than named caregiver, other support system includes . Caregiver is willing both physically and emotionally to provide care patient will require. Caregiver is prepared to provide skills needed to assist with patient's personal care. Discharge home and needed durable medical equipment has been assessed and obtained. Financial, food, and transportation needs have been assessed and resources provided if needed. Patient's need for ongoing services have been assessed and resources provided. Discharge plan home vs acute rehab. PCP: TANYA Lozano Pharmacy: [facility] PCP and pharmacy confirmed with patient. CN offered to assist with follow up appointment arrangements; . TANYA Lozano added to Follow Up Providers for Summary of Care communication. Per patient self-report: Drug use: denies Smoking: denies ETOH Use: rarely Current discharge plan is: Home with [facility] vs acute rehab pending PT/OT eval. CN spoke with patient's she has used [facility] mii in past. Tasked to send referrals to [facility] and to [facility]. Services Requested: Services Requested Patient expects to be discharged to:: home Does the patient wish to have family/friend/caregiver involved in their discharge planning?: Yes Does the patient plan to return home to a community setting?: Yes Has the family/friend/caregiver been assessed to determine their readiness, skills, capacities, and resources to provide post hospital care?: Yes, Caregiver Assessment Completed Discharge Disposition: Acute rehab, Home with home health services Goals: Goals (pt-stated) Evaluation of progress towards goal: Home with [facility] Autogenerated Goal Will continue to follow as plan of care develops. CN discussed benefits and importance of medication compliance and follow ups. Please feel free to reach out for any discharge planning questions. - Dawson Yost RN 06/18/25 12:24 PM [facility] 06-18-2025 Progress note Formatting of t his note is different from the original. Speech Therapy Evaluation Bedside Swallow/Feeding Evaluation Speech & Language Cognitive Evaluation Discharge Recommendations for Safe Patient Transition [employer] Post Discharge Therapy Recommendations: Continue ST services Recommendations Diet Level: Regular Liquid Level: Level 0 Thin Compensatory Strategies: Small sips/bites, One sip/bite at a time, Follow aspiration precautions Supervision/Positioning: Patient at 90 degress for all PO intake (including medication), Patient to remain upright 15 minutes after meals Impressions Oral Dysphagia: Mild Pharyngeal Dysphagia Suspected: Yes Plan Frequency: 2-3days/week Duration: until discharge Need for skilled Speech Language Pathology Services to address deficits in feeding/swallowing due to a status decline resulting from CVA. Prognosis Services: Skilled [employer] services to address above deficits Prognosis/Potential: Good Considerations: Age, Cognition Discharge Recommendations for Safe Patient Transition [employer] Post Discharge Therapy Recommendations: Continue ST services Impressions Receptive Language: Moderate-severe Expressive Language: Moderate-severe Cognitive Linguistic: Severe Plan Frequency: 2-3days/week Duration: until discharge Rehab Therapy Type: Individual treatment Need for skilled Speech Language Pathology Services to address deficits in speech/language/cognition due to a status decline resulting from CVA. Diagnostic therapy and education were provided. Pt benefited from cueing and repetition. Pt informed on results and recommendations of evaluation. Unable to complete SLUMS. PHQ2 - Over the past 2 weeks, how often have you been bothered by the following problems? Little Interest or Pleasure in Doing Things: Not at all Feeling Down, Depressed or Hopeless: Not at all Score: 0 Score ranges from 0 to 6; patients with scores of 3 or more should be further evaluated. Prognosis Services: Skilled [employer] services to address the above deficits Prognosis/Potential: Good Considerations: Age, Cognition Assessment Bedside Swallow/Feeding Eval Speech & Language Cognitive Eval Baseline Assessment Additional Testing Results: Computed Tomography, Magnetic resonance imaging Respiratory Status: Room Air Behavior/Cognition: Alert, Cooperative, Requires cueing, Confused Dentition: Adequate Patient Positioning: Upright in bed Volitional Cough: Strong Volitional Swallow: Within Functional Limits Laryngectomy: No Ability to Control Secretions: Yes Allergies Marked As Reviewed: Complete Oral/Motor Overall Oral/Motor Status: Exceptions to Within Functional Limits Labial ROM: Reduced Labial Strength: Reduced Labial Coordination: Reduced Lingual ROM: Reduced Lingual Strength: Reduced Lingual Coordination: Reduced Vocal Quality: Exceptions to WFL Weak: Mild Vocal Intensity: Within Functional Limits Intelligibility: Intelligibility reduced Intelligibility Rating: Mild Breath Support: Adequate for speech Dentition: Adequate Xerostomia: No Hearing: Hard of hearing/hearing concerns Consistencies Assessed: Yes Level 0 Thin Presentation: Cup, Straw Oral: Suspect premature spillage Pharyngeal: Decreased laryngeal elevation Level 4 Pureed Presentation: Spoon Oral: Suspect premature spillage Pharyngeal: Decreased laryngeal elevation Regular Presentation: Self feed Oral: Decreased mastication Pharyngeal: Delayed swallow initiation Pain Assessment Pain Assessment: No/denies pain Oral/Motor Overall Oral/Motor Status: Exceptions to Within Functional Limits Labial ROM: Reduced Labial Strength: Reduced Labial Coordination: Reduced Lingual ROM: Reduced Lingual Strength: Reduced Lingual Coordination: Reduced Vocal Quality: Exceptions to WFL Weak: Mild Vocal Intensity: Within Functional Limits Intelligibility: Intelligibility reduced Intelligibility Rating: Mild Breath Support: Adequate for speech Dentition: Adequate Xerostomia: No Hearing: Hard of hearing/hearing concerns Auditory Comprehension Overall Auditory Comphension Status: Exceptions to Within Functional Limits Yes/No Questions: Exceptions to WFL Basic Questions: Moderate Complex Questions: Severe Commands: Exceptions to WFL One Step Basic Commands: Moderate Two Step Basic Commands: Severe Multistep Basic Commands: Severe Paragraph: Severe Expression Overall Expression Status: Exceptions to Within Functional Limits Primary Mode of Expression: Verbal Verbal Expression Overall Verbal Expression Status: Exceptions to Within Functional Limits Aphasia: Mixed Initiation: Impairment Automatics: Impairment Repetition: Impairment Naming: Impairment Confrontation: Moderate Convergent: Severe Divergent: Severe Speech Production Overall Speech Production: Within Functional Limits Pragmatics/Social Functioning Overall Pragmatic Status: Exceptions to Within Functional Limits Topic Initiation: Moderate Topic Maintenance: Moderate Fluency Converstation Level: Impaired High Level Language Overall High Level Language Status: Exceptions to Within Functional Limits Attention: Exceptions to WFL Sustained Attention: Severe Memory: Exceptions to WFL Short-term Memory: Moderate Working Memory: Severe Problem Solving: Exceptions to WFL Managing Finances: Severe Managing Medications: Severe Abstract Reasoning: Severe Inductive Reasoning: Severe Deductive Reasoning: Severe Task Initiation: Delayed initiation Flexibility of Thought: Reduced flexibility Planning: Reduced planning skills Processing Speed: Delayed Cognition Overall Cognitive Status: Exceptions to Within Functional Limits Arousal/Alertness: Delayed responses to stimuli Attention Span: Attends with cues to redirect Memory: Decreased short term memory Orientation Level: Oriented to person, Disoriented to place, Disoriented to time, Disoriented to situation Following Commands: Follows one step commands with repetition, Follows one step commands with increased time Safety Judgment: Decreased awareness of need for safety, Decreased awareness of need for assistance Awareness of Errors: Decreased awareness of errors Insight of Deficits: Decreased awareness of deficits Problem Solving: Assistance required to identify errors made, Assistance required to generate solutions Pain Assessment Pain Assessment: No/denies pain Plan Diagnosis Code Swallowing: R13.12 Dysphagia, oropharyngeal phase, I69.891 Dysphagia following other cerebrovascular disease+ Cerebrovascular Disease: I69.828 Other speech and language deficits following other CV disease Speech Therapy Care Plan Speech Therapy Care Plan (Active) Template: ST - Dysphagia Problem: Swallowing Dates: Start: 06/18/25 Disciplines: [employer] Goal: STG: Patient will complete safety strategies independently during PO intake 90% of the time Dates: Start: 06/18/25 Expected End: 07/22/25 Disciplines: [employer] ENAMELER Template: ST - Rehab Speech Problem: Auditory Comprehension Dates: Start: 06/18/25 Disciplines: [employer] Goal: LTG: Patient will comprehend communication related to basic medical and social needs and utilize compensatory strategies to maintain safety in a functional living environment Dates: Start: 06/18/25 Expected End: 07/22/25 Disciplines: [employer]NAMEL[employer] Goal: STG: Patient will answer simple yes/no questions with 90% accuracy with minimal cueing. Dates: Start: 06/18/25 Expected End: 07/22/25 Disciplines: [employer]CELAIN ENAMELER Goal: STG: Patient will answer complex yes/no questions with 90% accuracy with minimal cueing Dates: Start: 06/18/25 Expected End: 07/22/25 Disciplines: [employer] Problem: Verbal Expression Dates: Start: 06/18/25 Disciplines: [employer] Goal: LTG: Patient will utilize compensatory strategies to communicate wants and needs effectively to different conversational partners, maintain safety and participate socially in a functional living environment Dates: Start: 06/18/25 Expected End: 07/22/25 Disciplines: [employer]NAMELER Goal: STG: Patient will complete simple to complex divergent and convergent naming tasks with 90% accuracy with minimal cueing to improve thought organization Dates: Start: 06/18/25 Expected End: 07/22/25 Disciplines: [employer] ENAMELER Goal: STG: Patient will use word retrieval strategies during structured interactions to improve functional communication during activities of daily living with 90% accuracy with minimal cueing Dates: Start: 06/18/25 Expected End: 07/22/25 Disciplines: [employer]NAMEL[employer] Speech Therapy Care Plan (Resolved) There are no resolved problems. Principal Problem: CVA (cerebral vascular accident) ([facility]) [facility] 06-18-2025 Progress note Formatting of t his note is different from the original. Occupational Therapy OT Type of Visit: Medical deferral Reason For Medical Deferral: Activity limitations Activity Limitations: Strict bedrest (Per TNK protocol. Will continue to follow.) [facility] 06-18-2025 Progress note Formatting of t his note is different from the original. Physical Therapy PT Type of Visit: Medical deferral (strict bedrest s/p TNK per protocol) Reason For Medical Deferral: Activity limitations Activity Limitations: Strict bedrest Will check back as appropriate. [facility] 06-18-2025 Plan of care note Problem: Pain Goal: Patient goal is pain score less than 4, able to rest, and participant in treatment plan as appropriate Description: INTERVENTIONS: 1. Encourage patient or legal personal banking representative to report early pain and ask for pain medicine when needed 2. Assess pain using appropriate pain scale and include the scale used when documenting 3. Administer analgesics based on type and severity of pain and evaluate response within appropriate time frame 4. Implement non-pharmacological measures as appropriate and evaluate response 5. Consider cultural and social influences on pain and pain management 6. Notify LIP if interventions ineffective or patient reports new pain 7. Monitor vital signs including pulse ox, end-tidal CO2 based on pain intervention 8. Reassess pain per policy 9. Teach patient or legal personal banking representative interventions for comforting Outcome: Progressing Note: Evaluation of progress towards goal: Patient currently denies pain. Patient encouraged to communicate with staff if pain occurs. Will continue to monitor for changes. Problem: Safety Goal: Patient will be injury free during hospitalization Description: INTERVENTIONS: 1. Assess patient's risk for falls and implement fall prevention plan of care per policy 2. Provide and maintain a safe environment 3. Proper use of double Identifiers 4. Medication administration using the 5 rights 5. Hand hygiene 6. Specimens are labeled at the bedside 7. Instruct patient/ patient personal banking representative about use of safety devices 8. Include patient/ patient personal banking representative in decisions related to safety Outcome: Progressing Note: Evaluation of progress towards goal: Safe environment maintained. Medications administered using 5 rights. Fall prevention plan implemented as needed. Problem: Infection Goal: Absence of infection during hospitalization Description: INTERVENTIONS 1. Assess and monitor for signs and symptoms of infection. 2. Monitor lab/diagnostic results. 3. Monitor all insertion sites i.e., indwelling lines, tubes and drains. 4. Monitor endotracheal (as able) and nasal secretions for changes in amount and color. 5. Administer medications as ordered. 6. Instruct and encourage patient and family to use good hand hygiene technique. 7. Identify and instruct patient/patient personal banking representative in use of appropriate isolation precautions for identified infection/symptoms. 8. Provide and discuss with patient/patient personal banking representative on educational MDRO sheet. 9. Encourage and monitor nutritional status daily and consult water commissioner if indicated. 10. Implement neutropenic guidelines as needed. Outcome: Progressing Note: Evaluation of progress towards goal: Labs and vitals monitored as ordered. Medications administered as ordered. Patient remains free from infection at this time. Problem: Moderate - High Risk Fall Score Description: Valenzuela Fall Score of =/> 25 or indicated by [facility] Assessment Goal: Patient should be free from fall Description: Interventions: 1. [place] to environment 2. Hourly rounds addressing the 4 P's (Pain, Positioning, Possessions, Potty) 3. Clear area of hazards (spills, clutter, electrical cords, unnecessary equipment) 4. Place equipment (bed & TV controls, call light, phone, urinal) within reach 5. Encourage patient to wear glasses and hearing aides as appropriate 6. Maintain bed in lowest position 7. Lock wheels on bed/wheelchair 8. Provide adequate lighting, including night light 9. Assess need for additional bedding, food/fluids, pain med's prior to sleep/routinely 10. Provide gripper slippers or personal non-skid footwear 11. Teach patient and patient personal banking representative to maintain environment for safety and engage in all aspects of fall prevention program 12. Remind patient to call for help before getting out of bed 13. Initiate bed/chair/exit alarms supportive devices as appropriate, (chair wedge, no-skid floor mat, raised edge mattress, hip protectors) 14. Locate patient bed assignment for optimal visualization 15. Evaluate and identify Safe Patient Handling Equipment needs 16. Provide supervision when out of bed or chair 17. Utilize gait belt as needed to assist with ambulation 18. Place adaptive equipment (cane, walker) within reach 19. Request patient personal banking representative bring adaptive equipment/mobility aids from home or obtain and provide as needed 20. Consult pharmacy regarding effects of med's affecting mobility, cognition, and alternatives 21. Obtain physician order for PT if risk factors associated with mobility are present 22. Obtain physician order for OT as appropriate 23. Utilize diversional activities 24. Educate patient and patient personal banking representative how to maintain a safe environment during visitation times (notify nurse prior to leaving bedside) 25. Consider appropriateness of medical or non-biomedical electronics technician 26. Set up voiding schedule as appropriate (every 2 hours) Outcome: Progressing Note: Evaluation of progress towards goal: Fall risk assessment preformed and safety measures in place. Education given to family/patient. Will continue to monitor. [facility] Plan of care note Problem: Pain Goal: Patient goal is pain score less than 4, able to rest, and participant in treatment plan as appropriate Description: INTERVENTIONS: 1. Encourage patient or legal personal banking representative to report early pain and ask for pain medicine when needed 2. Assess pain using appropriate pain scale and include the scale used when documenting 3. Administer analgesics based on type and severity of pain and evaluate response within appropriate time frame 4. Implement non-pharmacological measures as appropriate and evaluate response 5. Consider cultural and social influences on pain and pain management 6. Notify LIP if interventions ineffective or patient reports new pain 7. Monitor vital signs including pulse ox, end-tidal CO2 based on pain intervention 8. Reassess pain per policy 9. Teach patient or legal personal banking representative interventions for comforting Outcome: Progressing Note: Evaluation of progress towards goal: Patient currently denies pain. Patient encouraged to communicate with staff if pain occurs. Will continue to monitor for changes. Problem: Safety Goal: Patient will be injury free during hospitalization Description: INTERVENTIONS: 1. Assess patient's risk for falls and implement fall prevention plan of care per policy 2. Provide and maintain a safe environment 3. Proper use of double Identifiers 4. Medication administration using the 5 rights 5. Hand hygiene 6. Specimens are labeled at the bedside 7. Instruct patient/ patient personal banking representative about use of safety devices 8. Include patient/ patient personal banking representative in decisions related to safety Outcome: Progressing Note: Evaluation of progress towards goal: Patient safety maintained, call light in reach, area clear of hazards, hourly rounding continued, bed locked in lowest position, alarm on as applicable, non skid socks on, safety educated completed with patient/family, no injuries noted at this time. Problem: Infection Goal: Absence of infection during hospitalization Description: INTERVENTIONS 1. Assess and monitor for signs and symptoms of infection. 2. Monitor lab/diagnostic results. 3. Monitor all insertion sites i.e., indwelling lines, tubes and drains. 4. Monitor endotracheal (as able) and nasal secretions for changes in amount and color. 5. Administer medications as ordered. 6. Instruct and encourage patient and family to use good hand hygiene technique. 7. Identify and instruct patient/patient personal banking representative in use of appropriate isolation precautions for identified infection/symptoms. 8. Provide and discuss with patient/patient personal banking representative on educational MDRO sheet. 9. Encourage and monitor nutritional status daily and consult water commissioner if indicated. 10. Implement neutropenic guidelines as needed. Outcome: Progressing Note: Evaluation of progress towards goal: Patient remains free from signs of infection at this time. Will continue to monitor. Problem: Knowledge Deficit Goal: Patient/patient personal banking representative demonstrates understanding of disease process, treatment plan, medications, and discharge instructions Description: INTERVENTIONS 1. Complete learning assessment and assess knowledge base 2. Provide teaching at level of understanding 3. Provide teaching via preferred learning method(s) Outcome: Progressing Note: Evaluation of progress towards goal: Care plan discussed & goals for shift set with patient input appreciated. All questions answered. Problem: Moderate - High Risk Fall Score Description: Valenzuela Fall Score of =/> 25 or indicated by [facility] Assessment Goal: Patient should be free from fall Description: Interventions: 1. [place] to environment 2. Hourly rounds addressing the 4 P's (Pain, Positioning, Possessions, Potty) 3. Clear area of hazards (spills, clutter, electrical cords, unnecessary equipment) 4. Place equipment (bed & TV controls, call light, phone, urinal) within reach 5. Encourage patient to wear glasses and hearing aides as appropriate 6. Maintain bed in lowest position 7. Lock wheels on bed/wheelchair 8. Provide adequate lighting, including night light 9. Assess need for additional bedding, food/fluids, pain med's prior to sleep/routinely 10. Provide gripper slippers or personal non-skid footwear 11. Teach patient and patient personal banking representative to maintain environment for safety and engage in all aspects of fall prevention program 12. Remind patient to call for help before getting out of bed 13. Initiate bed/chair/exit alarms supportive devices as appropriate, (chair wedge, no-skid floor mat, raised edge mattress, hip protectors) 14. Locate patient bed assignment for optimal visualization 15. Evaluate and identify Safe Patient Handling Equipment needs 16. Provide supervision when out of bed or chair 17. Utilize gait belt as needed to assist with ambulation 18. Place adaptive equipment (cane, walker) within reach 19. Request patient personal banking representative bring adaptive equipment/mobility aids from home or obtain and provide as needed 20. Consult pharmacy regarding effects of med's affecting mobility, cognition, and alternatives 21. Obtain physician order for PT if risk factors associated with mobility are present 22. Obtain physician order for OT as appropriate 23. Utilize diversional activities 24. Educate patient and patient personal banking representative how to maintain a safe environment during visitation times (notify nurse prior to leaving bedside) 25. Consider appropriateness of medical or non-biomedical electronics technician 26. Set up voiding schedule as appropriate (every 2 hours) Outcome: Progressing Note: Evaluation of progress towards goal: Fall risk assessment preformed and safety measures in place. Education given to family/patient. Will continue to monitor. Additional Comments: [facility] 06-07-2025 Note Patient Education Nephrology Hyponatremia Hyponatremia [...] Follow these instructions at home: ??? Take [id number] and prescription medicines only as told by [...] provider. Document Revised: 05/11/2022 Document Reviewed: 05/11/2022 [employer] Patient Education ? 2023 CSS99. [facility] 06-05-2025 History of Present illness Narrative Pt discharge- pt taken downstairs by wheelchair by son and by car [facility] . Son given med s, discharge instructions . 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 . Nicole spoke with Gladys , Kishore by phone. . Kishore is adament, despite Marydel mild confusion, that she and her son want to drive Alexx back home to [place] to care for him at home tonight [...] 147 See Reflexed IPF Result Warfarin dose DEADENER: 5 mg MWF and 2.5 mg all other days Indication: Afib Goal INR: 2-3 Current warfarin drug-drug interactions: cephalexin, pravastatin, levothyroxine Date INR Dose 06/02 1.9 2.5 mg 06/03 1.7 Per JAN, 5 mg dose was ordered but not administered d/t pt status 06/04 1.8 5 mg 06.05 1.9 5 mg Notes: -INR remains subtherapeutic -Coumadin 5 mg this evening to outpatient therapy Will continue to follow. Starr Jackman PharmD [facility] 06/05/2025 11:23 AM Physical Therapy Facility/Department: [facility] 3- MICU Physical Therapy Initial Evaluation Patient Name: Dariel Zbaala : 1940 Date of Service: 06/05/2025 recurrent [...] within reach, Gait belt, Left in chair [facility] Basic Mobility - Inpatient How much help [...] 3-5 steps with a railing?: A Little [facility] In[facility] Mob[facility] Raw Score : 22 [facility] Inpatient T-Scale Score : 53.28 Mobility Inpatient [...] Level of Assist for Transfers: Independent 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 Jourdan Guan MD , INTENSIVE CARE UNIT Resident Physician Progress Note [...] [facility] after a fall which resulted in nasal bone fracture. Patient initially presented to [facility] yesterday and was treated with Afrin and nasal pressure, patient was discharged home with ENT follow-up. When patient returned home he blew his nose and resulted in brisk bleeding from the left nare prompting him to return to the ER yesterday evening. He had bilateral nasal packing with Rhino Rocket's placed and was transferred to [facility] for ENT evaluation. Patient was seen [...] this chart was generated using voice recognition [employer] dictation software. Although every effort was made to ensure the accuracy of this automated senior sales compensation analyst, some errors in senior sales compensation analyst may have occurred. Pharmacy Note Warfarin Consult follow-up Recent Labs 06/04/25 1423 INR 1.8 Recent Labs 06/02/25 1308 06/03/25 0618 HGB 12.3* 12.3* HCT 36.5* 35.2* PLT 147 See Reflexed IPF Result Warfarin dose DEADENER: 5 mg MWF and 2.5 mg all other days Indication: Afib Goal INR: 2-3 Current warfarin drug-drug interactions: Keflex, Pravachol, Synthroid Date INR Dose 06/02 1.9 2.5 mg 06/03 1.7 Per JAN, 5 mg dose was ordered but not administered d/t pt status 06/04 1.8 5 mg Notes: -Subtherapeutic INR -Coumadin 5 mg boost this evening (home dose = 2.5 mg) Daily PT/INR while inpatient. Thank you for the consult. Will continue to follow. Nahed CastleD ENT/OTOLARYNGOLOGY SUBSEQUENT CARE PROGRESS NOTE REASON FOR [...] Pediatric Otolaryngology-Head and Neck Surgery [facility] Otolaryngology group Office ph# [phone] Also available in [employer] [facility]acy Note Warfarin Consult follow-up Recent Labs [...] from the original note were not included. [facility] Office: [phone] Viktor Monet DO, Jermaine Gustafson DO, Brigida [...] Duckworth MD, Tiffany Francis MD, Valerie Trivedi, CLAIMS ATTORNEY, Keren Gutierrez, CLAIMS ATTORNEY, Beto Guzman, CLAIMS ATTORNEY, Kemi Hdz, [facility], Janelle Luna, CLAIMS ATTORNEY, Celena Johnson, CLAIMS ATTORNEY, Annia Rogers, CLAIMS ATTORNEY, Christina Cuevas, CLAIMS ATTORNEY, Marline Vila, PA-C, Adore Cueto, CLAIMS ATTORNEY, Emily Chiang, CLAIMS ATTORNEY, Maria Elena De La Torre, CLAIMS ATTORNEY, Venessa Mitchell, CLAIMS ATTORNEY, Rush Peters PA-C, Rachel Nascimento PALisaC, Lorna Salazar, CLAIMS ATTORNEY, Edwina Cole, JEWEL GAUGER, China Castillo, CLAIMS ATTORNEY, Leelee Easley, CLAIMS ATTORNEY [facility] IN-PATIENT SERVICE [facility] Progress Note 06/03/2025 8:19 AM Name: Dariel Zabala Acct: [id number] Room: [address] [place], [place] [address] Day: 1 Admit Date: 06/02/2025 10:01 AM [...] type 2 diabetes, SIADH initially presented to [place] emergency department for nosebleeding after mechanical fall out of a chair. CT scan reportedly showed nasal bone fracture. He was transferred to [place] for ENT evaluation. ENT deflated nasal packings [...] , PHART , PH , POCPCO2 , [id number] , PCO2 , POCPO2 , PO2ART , PO2 , POCHCO3 , MUO5TCU , HCO3 , NBEA , PBEA , BEART , BE , THGBART , THB , JII5BBS , BKIX8PAS , [id number] , O2SAT , FIO2 No results found [...] bleeding. If none- ok for discharge home. FLORENCE BARNES MD Pediatric Otolaryngology-Head and Neck Surgery [facility] group Office ph# [phone] Also available in [employer] [facility] Note Warfarin Consult Dariel Zabala is a 85 y.o. male for whom pharmacy has been consulted to manage warfarin therapy. Consulting Physician: Adore Cueto APRN - DRIVER RETRAINING INSTRUCTOR Reason for Admission: Mechanical fall resulting in nasal bone fracture and recurrent epistaxis Warfarin dose prior to admission: 2.5mg Tuesday, Tuesday, , Tuesday and 5 mg [facility]. Warfarin indication: afib Target INR range: 2-3 Past Medical History: Diagnosis Date Atrial fibrillation (HCC) Diabetes (HCC) High cholesterol Hyponatremia Hypothyroidism Lumbar spondylolysis Syncope Recent Labs 06/02/25 1308 INR 1.9 Recent Labs 06/02/25 1308 HGB 12.3* HCT 36.5* PLT 147 Current warfarin drug-drug interactions: cephalexin/acetaminophen/pravasta tin Date INR Dose 06/02 1.9 2.5 mg Daily PT/INR while inpatient. Due to no current bleed, plan for warfarin 2.5 mg x 1 dose Thank you for the consult. Will continue to follow. Juju Garcia, Love 06/02/2025 2:31 PM ENT at bedside, removed air from rhinorockets. Order received to inflate and page him if bleeding occurs. Pt arrived from [facility] via [facility]. Pt A&Ox4, admission database complete. Mediations reconciled. Pt put on telemetry and continuous pulse ox. Vitals stable. Bilat rhino rockets in place. No active epistaxis at this time. Primary team made aware of arrival. Barrel Header called pt's to make her aware if the transfer, no answer left message. documented in this encounter [facility] 06-05-2025 Hospital course Narrative Images from the original note were not included. [facility] Department of Internal Medicine - Critical Care Service INPATIENT DISCHARGE SUMMARY PATIENT IDENTIFICATION: NAME: Dariel Zabala : 1940 Acct: [id number] Admit Date: 06/02/2025 Discharge date: No discharge [...] nasal bone fracture. Patient initially presented to [facility] yesterday and was treated with Afrin and nasal pressure, patient was discharged home with ENT follow-up. When patient returned home he blew his nose and resulted in brisk bleeding from the left nare prompting him to return to the ER yesterday evening. He had bilateral nasal packing with Rhino Rocket's placed and was transferred to [facility] for ENT evaluation. Patient was seen [...] 1 weeks with PCP, in 1 weeks can conveyor feeder Time Spent on discharge is more than 15 minutes in the examination, evaluation, counseling and review of medications and discharge plan. Pepito Grant MD Internal Medicine Resident Critical Care Service Cosigned by Flaco Ren MD at 06/05/2025 5:16 PM EDT documented in this encounter [facility] 06-05-2025 Hospital Discharge instructions Pepito [...] 2-3 Please follow-up with your PCP and can conveyor feeder (kidney doctor )for continued care Please go to the nearest ER if you have worsening of current symptoms or started experiencing new symptoms like shortness of breath, chest pain, palpitations, dizziness, loss of consciousness, any bleed from the nose for further evaluation management documented in this encounter [facility] 05-20-2025 Note Nurse Consultation N [...] Recorded influenza virus vaccine, inactivated 08/02/2014 Recorded [facility] 05-09-2025 Note Patient Education Cardiovascular Atrial [...] these instructions at home: Medicines ??? Take pkmq-hyi-wwbuvpj and prescription medicines only as told by [...] provider. Document Revised: 07/20/2023 Document Reviewed: 07/20/2023 [employer] Patient Education ? 2023 CSS99. Caregiving Fall Prevention in the Home, Adult Falls can cause injuries and can happen to people of all ag (more content not included)... [facility] 12-31-2024 Note Nurse Consultation N ote [...] Recorded influenza virus vaccine, inactivated 08/02/2014 Recorded [facility] 12-24-2024 Note Patient Education Cardiovascular Atrial [...] signals of the heart. ??? An ambulatory director cardiac to record your heart's activity for a [...] main warning s (more content not included)... [facility] 11-28-2024 History of Present illness Narrative Images from the original note were not included. HISTORY OF PRESENT ILLNESS: Dariel Zabala is an 84 y.o. @ male. 1ST PO LT CTR 11/19/24 (9 DAYS) @ [facility] PAIN DIFFUSE IN HAND/WRIST. KEEPS COVERED WITH [...] new symptoms develop for requiring urgent evaluation. Jose L Chow APRN-CLAIMS ATTORNEY documented in this encounter [facility] 11-26-2024 History of Present illness Narrative Images from the original note were not included. Subjective Patient ID: Dariel Zabala is a 84 y.o. male who presents for Ear Problem (Hearing aid battery in ear.) Pt seen in [facility] ED last Tuesday and DARNELL battery noted in RT EAC No family history on file. Active Ambulatory Problems Diagnosis Date Noted ASCVD (arteriosclerotic cardiovascular disease) ([facility]) 11/26/2024 Atrial fibrillation ([facility]/HCC) 08/22/2014 Back spasm 11/26/2024 Benign hypertension ([facility]) 11/26/2024 Body mass index (BMI) of 25.0-25.9 in adult 11/26/2024 Benign prostatic hyperplasia 11/26/2024 Carotid artery occlusion 11/26/2024 Carpal tunnel syndrome 08/23/2007 Cervical disc disease with myelopathy 2011 Diabetes mellitus ([facility]) 11/26/2024 ED (erectile dysfunction) 11/26/2024 Encounter for surveillance of abnormal nevi 11/26/2024 Erectile dysfunction due to arterial insufficiency 11/26/2024 Fall at home 11/26/2024 Generalized osteoarthritis 09/12/2012 Hard of hearing 11/26/2024 Resolved Ambulatory Problems Diagnosis Date Noted No Resolved Ambulatory Problems No Additional Past Medical History Past Surgical History: Procedure Laterality Date CARPAL TUNNEL RELEASE NECK SURGERY TRIGGER FINGER RELEASE Right 03/26/2024 [facility] [place] No Known Allergies Current Outpatient Medications [...] NOSTRIL ONCE DAILY AT BEDTIME [DISCONTINUED] HYDROcodone-acetaminophen ([place]) 5-325 MG tablet [DISCONTINUED] tiZANidine (Zanaflex) 4 [...] Dr Garcia notified. documented in this encounter [facility] 11-19-2024 Note Progress Note-Physic carlos Patient: DARIEL ZABALA Age: 84 years Sex: Male : 1940 Associated Diagnoses: None Author: Carmine COHN, Chau Pineda Postoperative Information Postoperative disposition: Postoperative disposition: To PACU. Optimetrix number: Optimetrix number [id number]. Anesthetic utilized: General. Health Status Allergies: Allergic [...] when meets criteria ( To home ). [facility] Comment on above: Result Comment: Elec tronically Signed By: Chau Lou MD\.br\Date and Time Signed: 11/19/24 15:19 EST 11-19-2024 Evaluation + Plan note Extrac bijal from: Title:ANES Post-operative Note---General Author: Chau Lou MD Date:11/19/24 Plan Transfer/Discharge: Transfer/Discharge Discharge when meets criteria ( To home ). Extracted from: Title:ANES Pre-operative Note 2022 Author:Chau Goode Date:11/19/24 Plan [place] Society of Anesthesiologists (ASA) physical status classification: Class III. Anesthetic Preoperative Plan: Anesthesia General. Future Appointments Appointment Date:12/12/2024 10:15:00 AM Scheduled Provider:Dixon Dubose PA-C [facility] Type:Cardiology Follow Up (FT) Appointment Date:05/02/2025 08:00:00 AM Scheduled Provider: Location:[facility] Appointment Type:FM Medicare Wellness Subsequent Future Scheduled Tests Laboratory* Basic Metabolic Panel 11/13/24 [facility] [id number] NotePatient Education - Text [place], [place] [facility] CARPAL TUNNEL RELEASE INSTRUCTIONS [...] Patient Signature Axel Hernández, DO [facility] [address] [place] [address] Reviewed: 04-22[facility]01-06-2025 NoteProgress Note-Physician Patient: DARIEL ZABALA Age: [...] 90 tab(s), Refills(s) 0, [id number], cm, 06/11/24 12:53:00 EDT, Height/Length Dosing, 82, kg, 06/11/2412:56:00 EDT, Weight Dosing Sodium Chloride 1000 mg oral tablet, soluble: See Instructions, 30 tab(s), Refill(s) 0, Take one tablet daily, [id number], 178.6, cm, 11/01/24 9:21:00 EST, Height/Length Dosing, 81.3, kg, 11/01/24 9:21:00 EST, Weight Dosing Synthroid 25 mcg(0.025 mg) Tab: See Instructions, TAKE 1 TABLET DAILY ON AN EMPTY STOMACH, # 3 tab(s), Refills(s) 0, [id number], 178, cm, 08/07/24 10:59:00 EDT, Height/Length Dosing, 78.2, kg, 08/07/24 10:59:00 EDT, Weight Dosing atenolol 25 mg Tab: See Instructions, take 1/2 tab daily, # 90 tab(s), Refills(s) 1, Pharmacy: [facility], 178, cm, 09/10/24 13:01:00 EDT, Height/Length Dosing, 80.1, kg, 09/10/24 13:01:00 EDT, Weight Dosing finasteride 5 mg Tab: 5 mg = 1 tab(s), Oral, Daily, # 90 tab(s), Refills(s) 1, Pharmacy: [facility] #[id number], 178.6, cm, 11/01/24 9:21:00 EST, Height/Length Dosing, 81.3, kg, 11/01/24 9:21:00 EST, Weight Dosing fluticasone Nasal 0.05 mg/inh Menno: See Instructions, 48 mL, Refill(s) 1, USE 1 SPRAY IN EACH NOSTRIL TWICE A DAY, [id number], 178, cm, 08/28/24 14:50:00 EDT, Height/Length Dosing, 82.2, kg, 08/28/24 14:50:00 EDT, Weight Dosing gabapentin 300 mg Cap: 300 mg = 1 cap(s), Oral, Daily, # 90 cap(s), Refills(s) 1, Pharmacy: [facility], 178, cm, 07/03/24 10:05:00 EDT, Height/Length Dosing, 80.8, kg, 07/03/2410:05:00 EDT, Weight Dosing glimepiride 2 mg Tab: See Instructions, TAKE 1 TABLET DAILY, # 3 tab(s), Refills(s) 0, Pharmacy: [facility], 178, cm, 08/07/24 10:59:00 EDT, Height/Length Dosing, 78.2, kg, 08/07/24 10:59:00 EDT, Weight Dosing omeprazole 40 mg Cap-DR: 40 mg = 1 cap(s), Oral, Daily, # 90 cap(s), Refills(s) 1, Pharmacy: [facility], 178, cm, 08/28/24 14:50:00 EDT, Height/Length Dosing, 82.2, kg, 08/28/24 14:50:00 EDT, Weight Dosing pravastatin 40 mg Tab: 40 mg = 1 tab(s), Oral, Daily, # 90 tab(s), Refills(s) 3, Pharmacy: [facility], 178, cm, 09/10/24 13:01:00 EDT, Height/Length Dosing, 80.1, kg, 09/10/24 13:01:00 EDT, Weight Dosing sildenafil 100 mg Tab: 100 mg = 1 tab(s), Oral, Daily, PRN for erectile dysfunction, 1 hour before sexual activity, # 5 tab(s), Refills(s) 0, Pharmacy: [facility], 178, cm, 07/03/24 10:05:00 EDT, Height/Length Dosing, 80.8, kg, 07/03/24 10:05:00 EDT,... tamsulosin 0.4 mg Cap: 0.4 mg = 1 cap(s), Oral, Daily, # 90 cap(s), Refills(s) 1, Pharmacy: [facility], 178, cm, 09/10/24 13:01:00 EDT, Height/Length Dosing, 80.1, kg, 09/10/2413:01:00 EDT, Weight Dosing Documented Medications Documented CoQ10: See Instructions, PRN Prophylaxis, Refills(s) 0 D3: See Instructions, Oral Daily- patient states he takes 500 once a day, Refills(s) 0 Jantoven 5 mg oral tablet: 5 mg = 1 tab(s), Oral, Daily, Refills(s) 0, Blood Thinner (more content not included)...[facility]Result Comment: Electronically Signed By: Carmine COHN, Chau Pineda\.br\Date and Time Signed: 11/19/24 11:51 [id number] Hospital Discharge instructions Patient Education 11/12/2024 12:08:21 Hernández - Carpal Tunnel Release Instructions (Custom) (CUSTOM) [place], [place] [facility] CARPAL TUNNEL RELEASE INSTRUCTIONS [...] The pins and needles to resolve. Patient SignatureMicvadimkrishan Hernández, DO [facility] [address] [place] [id number] Reviewed: 6-11/19/2024 13:10:26 Post Op Patient Instructions - FT (Custom) (CUSTOM) Follow Up Care 10/03/2024 14:28:43 With:GORDO Weller Address: [address] [place], [place] [address]- Business (1) When:11/28/2024 13:00:00 Comments:Keep scheduled appointment. Call for any problems. [facility] 12-30-2024 NotePatient Education - Text [place], [place] [facility] CARPAL TUNNEL RELEASE INSTRUCTIONS [...] Patient Signature Axel Hernández, DO [facility] [address] [place] [address] Reviewed: 04-22[facility]12-30-2024 NoteNurse Consultation Note Reason for Visit [...] Daily, 1 refills fluticasone Nasal 0.05 mg/inh Menno, See Instructions, Self Directed gabapentin 300 mg [...] 03/31/2015 Recorded influenza virus vaccine, inactivated 08/02/2014 [facility] History of Present illness Narrative* Shala Farrell MD - 09/28/2024 9:30 AM EST [facility] Healthcare Patient: Dariel Zabala [address], [address] , Sex: 1940, Male [place], [place] [address] Height: 180 cm Ref Phys: Hernández fax [...] Doub=doublet; Fasc=fasciculation; FFE=full for effort; Fib=fibrillation; Myokym=myokymia; [place]=myotonic potential; N,0=normal; NR=no response; Polyph=polyphasia; Pos=positive [sharp] [...] available for comparison. Shala Farrell M.D. Diplomate, [place] Board of Psychiatry and Neurology (neurology, epilepsy, sleep medicine) Diplomate, [place] Board of Clinical Neurophysiology Diplomate, [place] Board of Preventive Medicine (clinical informatics) . documented in this [facility]10-07-2024 Telephone encounter Note* Telephone Encounter - Miguel Moe - 08/20/2024 10:50 AM EDT LVM to RC in regard to BUE referral from Dr. Hernández--Approved to schedule--25.00 co-pay will be applied to toward OOP. [id number] Miscellaneous Notes* Telephone Encounter - Miguel Moe - 08/20/2024 10:50 AM EDT LVM to RC in regard to BUE referral from Dr. Hernández--Approved to schedule--25.00 co-pay will be applied to toward OOP. documented in this [facility]05-13-2024 Hospital Discharge instructions Patient Education 03/26/2024 14:02:11 [...] condition: Doing activities that require a strong medical surgical tech. Having rheumatoid arthritis, gout, or diabetes. [...] splint on your hand. General instructions Take ooii-kkf-pjshong and prescription medicines only as told by [...] provider. Document Revised: 03/17/2020 Document Reviewed: 03/17/2020 [employer] Patient Education 2022 CSS99. Follow Up Care 03/01/2024 15:40:29 With:GORDO Weller Address: [address] [place], [place] [id number] Business (1) When:04/04/2024 10:15:00 Comments:Keep scheduled appointment [facility]01-05-2024 Evaluation note* Encounter Date Diagnosis Assessment Notes [...] sodium level at upcoming appt in January [employer] Other 12-20-2023 Evaluation note* Encounter Date Diagnosis [...] further dizziness symptoms would recommend f/u with adult and pediatric neurologist as well. [employer] Other 11-17-2023 Evaluation note* Encounter Date Diagnosis Assessment Notes Treatment Notes Treatment Clinical Notes Sep, Type 2 diabetes mellitus (ICD-10 - E11.9) [employer] Other 11-17-2023 Miscellaneous Notes* Telephone Encounter - Venessa Riggins RN - 09/30/2023 12:29 PM EST Called patient back and reviewed plan from his call with Nurse Pharmaceutical Botanist at 11:36 AM. See my note Patient already called his PCP as advise and waiting call back for scheduling. He was hospital discharged on 08/26 for cognitive problems and low sodium. He finished his pills for low sodium today. NOC closing was given Conferenced [facility] to [facility] for an appt with nephrology as soon [...] have any questions, you can call Nurse environmental protection geologist back. * Telephone Encounter - Venessa Riggins RN - 09/30/2023 11:36 AM EST Patient calling with request for physician referral: Patient referred to nephrology and primary care Department. Patient denies any new or worsening symptoms of which a provider is not aware: Yes. Patient was discharged from [facility] on 08/26 for low sodium and said [...] none PCP luis appt. Conferenced him to [facility] and then call dropped. My [employer] lost connection. NOC closing was given GO TO THE EMERGENCY ROOM OR CALL 911 IF: * You develop any new symptoms * Your condition worsens * You are concerned or anxious about your condition for any other reason. If you have any questions, you can call Nurse environmental protection geologist back. [facility]* Encounter Date Diagnosis Assessment Notes Treatment Notes Treatment Clinical Notes Sep, Hyponatremia (ICD-10 - E87.1) Recent sodium 136 at low end of normal, given significance of symptoms and recommendation of hospital for f/u will refer to nephrology patient requesting [place] Sep, Anticoagulant long-term use (ICD-10 - Z79.01) Follows with INR clinic through [facility]. Sep, Atrial fibrillation (ICD-10 - I48.91) Appears in NSR today, anticoagulated on Warfarin Sep, Hypothyroidism (ICD-10 - E03.9) Recent TFTs in normal range, clinically euthyroid, continue current dose of LT4 Sep, Type 2 diabetes mellitus (ICD-10 - E11.9) Recent a1c in good range at 5.6%, continue current dose of glimepiride. Sep, Immunization due (ICD-10 - Z23) [facility] 10-16-2023 Evaluation note* Encounter Date Diagnosis Assessment Notes Treatment Notes Treatment Clinical Notes Aug, Hyponatremia (ICD-10 - E87.1) [facility] 08-03-2023 Evaluation note* Encounter Date Diagnosis Assessment Notes Treatment Notes Treatment Clinical Notes Jun, Atrial fibrillation (ICD-10 - I48.91) Rate controlled, mild bradycardia but asymptomatic. Will continue current dose of atenolol. He is anticoagulated on Coumadin with goal INR 2-3, he is due for INR check. Will refer to coumadin clinic through [facility] Jun, Anticoagulant long-term use (ICD-10 - Z79.01) Jun, Hearing loss (ICD-10 - H91.90) Referral to local broadcast correspondent Jun, Dermatitis (ICD-10 - L30.9) Can trial topical steroid PRN, discussed may be secondary to dry skin. Recommend daily use of lotion Jun, Hypothyroidism (ICD-10 - E03.9) Due for TFTs prior to next visit Jun, Type 2 diabetes mellitus (ICD-10 - E11.9) Due for a1c prior to next visit Jun, BPH (benign prostatic hyperplasia) (ICD-10 - N40.0) [employer] 08-03-2023 Reason for referral (narrative)* Reason Medication managemen t through [facility] - Coumadin management with INR goal 2-3 Diagnosis 1 Anticoagulant long-t erm use (Z79.01) Referral Organization [facility] Rodo John Referring Provider First Name Jada Referring Provider Last Name [facility] Referring Provider Specialty [facility] [employer] Referred Organization [facility] Referred Address [address] [place], [place],[address] Referred Provider Specialty Milvia felix Referral Priority Routine General Notes Gabreille Reid 01/2023 01:34:29 PM >this is an order not a referral, clinical informed and will fax order over for standing order INR to [facility] Reason * FU 06/29 CALL he aring loss, issue with hearing aids Diagnosis 1 Hearing loss (H91.90 ) Referral Organization [facility] Referring Provider First Name Jada Referring Provider Last Name [facility] Referring Provider Specialty [facility] [employer] Referred Organization [facility] Referred Address ,[place], [place],[address] Referred Provider Specialty Audiologists Referral Priority Routine General Notes Gabrielle Reid 01/2023 01:28:34 PM >referral received and faxed [employer] Other 04-27-2010 History of Past illness Narrative* Problem Noted Date Diagnosed Date Resolved Date Myalgia 03/10/2010 03/01/2011 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 and other lower urinary tract symptoms (LUTS) 08/11/2006 01/11/2013 Elevated prostate specific antigen (PSA) 03/07/2012 documented as of this encounter (statuses as of 09/30/2023) [facility] No data available for this section [facility] Future Appointments Appointment Date:03/08/2024 01:00:00 PM Scheduled Provider:Edwin Garcia MD Location:[facility] Appointment Type: Open Appointment Date:03/26/2024 01:45:00 PM Scheduled Provider: Location:[facility] Appointment Type:Surgery FT Appointment Date:05/01/2024 09:00:00 AM Scheduled Provider: Location:[facility] Appointment Type: Lab Draw Appointment Date:05/03/2024 08:00:00 AM Scheduled Provider: Location:[facility] Appointment Type: Medicare Wellness Subsequent Appointment Date:05/03/2024 09:00:00 AM Scheduled Provider:Edwin Garcia MD Location:[facility] Appointment Type: Open Future Scheduled Tests Laboratory* PSA Screen, Total 02/02/24 * CBC w/ Auto Diff 02/02/24 * Comprehensive Metabolic Panel 02/02/24 * Lipid Panel 02/02/24 [facility] Future Appointments Appointment Date:05/01/2024 09:00:00 AM Scheduled Provider: Location:[facility] Appointment Type:FM Lab Draw Appointment Date:05/03/2024 08:00:00 AM Scheduled Provider: Location:[facility] Appointment Type: Medicare Wellness Subsequent Appointment Date:05/03/2024 09:00:00 AM Scheduled Provider:Edwin Garcia MD Location:[facility] Appointment Type: Open Future Scheduled Tests Laboratory* PSA Screen, Total 02/02/24 * CBC w/ Auto Diff 02/02/24 * Comprehensive Metabolic Panel 02/02/24 * Lipid Panel 02/02/24 [facility] Future Appointments Appointment Date:05/01/2024 09:00:00 AM Scheduled Provider: Location:[facility] Appointment Type:FM Lab Draw Appointment Date:05/03/2024 08:00:00 AM Scheduled Provider: Location:[facility] Appointment Type: Medicare Wellness Subsequent Appointment Date:05/03/2024 09:00:00 AM Scheduled Provider:Edwin Garcia MD Location:[facility] Appointment Type: Open Appointment Date:05/25/2024 01:00:00 PM Scheduled Provider:Kashif Barnett MD [facility] [place] [facility] Type:Cardiology Follow Up (FT) Future Scheduled Tests Laboratory* PSA Screen, Total 02/02/24 * CBC w/ Auto Diff 02/02/24 * Comprehensive Metabolic Panel 02/02/24 * Lipid Panel 02/02/24 Radiology* Echo Transthoracic Complete 04/20/24 [facility] Future Appointments Appointment Date:05/03/2024 08:00:00 AM Scheduled Provider: Location:[facility] Appointment Type:FM Medicare Wellness Subsequent Appointment Date:05/03/2024 09:00:00 AM Scheduled Provider:Edwin Garcia MD Location:[facility] Appointment Type:FM Open Appointment Date:05/21/2024 10:00:00 AM Scheduled Provider: [facility] Type:CV Holter/Event (FT) Appointment Date:05/25/2024 01:00:00 PM Scheduled Provider:Kashif Barnett MD [facility] [place] [facility] Type:Cardiology Follow Up (FT) [facility] Plan note Future Appointments Appointment Date:05/30/2024 03:45:00 PM Scheduled Provider:Kashif Barnett MD [facility] Type:Cardiology Follow Up (FT) Appointment Date:11/01/2024 09:15:00 AM Scheduled Provider:Edwin Garcia MD Location:[facility] Appointment Type: Open Appointment Date:05/02/2025 08:00:00 AM Scheduled Provider: Location:[facility] Appointment Type:FM Medicare Wellness Subsequent [facility] Future Appointments Appointment Date:08/31/2024 01:00:00 PM Scheduled Provider:Kashif Barnett MD [facility] Appointment Type:Cardiology Follow Up (FT) Appointment Date:11/01/2024 09:15:00 AM Scheduled Provider:Edwin Garcia MD Location:[facility] Appointment Type: Open Appointment Date:05/02/2025 08:00:00 AM Scheduled Provider: Location:[facility] Appointment Type:FM Medicare Wellness Subsequent [facility] Future Appointments Appointment Date:11/01/2024 09:15:00 AM Scheduled Provider:Edwin Garcia MD Location:[facility] Appointment Type:FM Open Appointment Date:12/11/2024 01:00:00 PM Scheduled Provider:Dixon Dubose PA-C [facility] Type:Cardiology Follow Up (FT) Appointment Date:05/02/2025 08:00:00 AM Scheduled Provider: Location:[facility] Appointment Type: Medicare Wellness Subsequent [facility] + Plan note Future Appointments Appointment Date:11/01/2024 09:15:00 AM Scheduled Provider:Edwin Garcia MD Location:[facility] Appointment Type:FM Open Appointment Date:11/19/2024 02:15:00 PM Scheduled Provider: Location:[facility] Appointment Type:Surgery FT Appointment Date:12/12/2024 10:15:00 AM Scheduled Provider:Dixon Dubose PA-C [facility] Type:Cardiology Follow Up (FT) Appointment Date:05/02/2025 08:00:00 AM Scheduled Provider: Location:[facility] Appointment Type: Medicare Wellness Subsequent [facility] + Plan note Future Appointments Appointment Date:11/19/2024 02:15:00 PM Scheduled Provider: Location:[facility] Appointment Type:Surgery FT Appointment Date:12/12/2024 10:15:00 AM Scheduled Provider:Dixon Dubose PA-C [facility] Type:Cardiology Follow Up (FT) Appointment Date:05/02/2025 08:00:00 AM Scheduled Provider: Location:[facility] Appointment Type:FM Medicare Wellness Subsequent [facility] + Plan note Future Appointments Appointment Date:12/24/2024 01:15:00 PM Scheduled Provider:[facility] Open Appointment Date:05/02/2025 08:00:00 AM Scheduled Provider: Location:[facility] Appointment Type: Medicare Wellness Subsequent Diagnostic Tests Pending * Basic Metabolic Panel 12/17/24 Future Scheduled Tests Laboratory* Basic Metabolic Panel 11/13/24 [facility] + Plan note Future Appointments Appointment Date:01/22/2025 10:15:00 AM Scheduled Provider:Edwin Garcia MD Location:[facility] Appointment Type: Open Appointment Date:05/02/2025 08:00:00 AM Scheduled Provider: Location:[facility] Appointment Type:FM Medicare Wellness Subsequent Future Scheduled Tests Laboratory* Basic Metabolic Panel 11/13/24 [facility] + Plan note Future Appointments Appointment Date:02/05/2025 01:30:00 PM Scheduled Provider:Ewdin Garcia MD Location:[facility] Appointment Type: Open Appointment Date:05/02/2025 08:00:00 AM Scheduled Provider: Location:[facility] Appointment Type:FM Medicare Wellness Subsequent Future Scheduled Tests Laboratory* Basic Metabolic Panel 01/10/25 * Basic Metabolic Panel 11/13/24 [facility] evaluation + Plan note Future Appointments Appointment Date:05/02/2025 08:00:00 AM Scheduled Provider: Location:[facility] Appointment Type: Medicare Wellness Subsequent Future Scheduled Tests Laboratory* Basic Metabolic Panel 11/13/24 [facility] evaluation + Plan note Future Appointments Appointment Date:08/09/2025 10:40:00 AM Scheduled Provider:YANIQUE MCNEILL CNP Location:[facility] Appointment Type: Open Appointment Date:05/13/2026 08:00:00 AM Scheduled Provider: Location:[facility] Appointment Type: Medicare Wellness Subsequent Future Scheduled Tests Laboratory* Basic Metabolic Panel 11/13/24 [facility] evaluation noteNo FileThisWest [facility] Other evaluation note* Diagnosis Pain in both upper extremities- Primary Carpal tunnel syndrome, bilateral Carpal tunnel syndrome documented [facility]* Diagnosis Pre-op testing- Primary Unspecified pre-operative examination Right hand pain Pain in soft tissues of limb Arm weakness Other musculoskeletal symptoms referable to limbs documented in this encounter [facility]* Diagnosis Foreign body of right ear, initial encounter- Primary documented in this encounter [facility]* Diagnosis Status post carpal tunnel release- Primary Other postprocedural status documented in this encounter [facility] Healthcare[facility]* Diagnosis Fracture of nasal [...] and immunity disorders [facility] (cerebral vascular accident) ([facility])- Primary Unspecified cerebral artery occlusion with cerebral infarction 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 ([facility]) documented in this encounter [facility] SystemHistory general Narrative - Reported* Type Description Date Medical History type 2 diabetes Medical History hypothyroid Medical History Afib Surgical History multiple neck sx Surgical History tonsillectomy Surgical History adenoidectomy Surgical History MAU cataract Hospitalization History see above [employer] Other History general Narrative - Reported* Type Description Date Medical History type 2 diabetes Medical History hypothyroid Medical History Afib Surgical History multiple neck sx Surgical History tonsillectomy Surgical History adenoidectomy Surgical History MAU cataract Hospitalization History see above Hospitalization History low sodium- [facility] 10/2023 [employer] Other History general Narrative - Reported* Type Description Date Medical History type 2 diabetes Medical History hypothyroid Medical History Afib Surgical History multiple neck sx Surgical History tonsillectomy Surgical History adenoidectomy Surgical History MAU cataract Hospitalization History see above Hospitalization History low sodium- [facility] 10/2023 Hospitalization History [place]--Influe nza A, hyponatremia, paroxysmal afib, altered mental status, type 2 DM, generalized weakness hypomagnesiema, RADHA 11/13/23-11/15/23 [employer] Other Hospital Discharge instructions No data available for this section [facility] instructionsNot on file documented in [facility] SystemProgress note No data available for this section [facility] Narrative* Auth/Cert (Routine) Specialty Diagnoses / Procedures Referred By Contac t Referred To Contact Diagnoses Epistaxis Nasal fracture Fracture of nasal bones, initial encounter for closed fracture Beto Hedrick DO [address] [facility] [address] [place] [address] Phone: tel: fax: [facility] [address] [place] [address] Referral ID Status Reason Start Date Expiration Date Visits Re quested Visits Authorized [id number] 1 1 [facility] for visit Narrative* Auth/Cert Specialty Diagnoses / Procedures Referred By Contac t Referred To Contact Diagnoses CVA [facility] [address] [place] [phone] Referral ID Status Reason Start Date Expiration Date Visits Re quested Visits Authorized [id number] 1 1 [facility] Summary Purpose Family History No Family [...] Activated Date Inactivated Comments 06/02/2025 12:05 PM Date Activated Date Inactivated Comments 06/23/2025 10:31 AM Reason for Referral Reason * 09/28 follow up hospitalization for symptomatic hyponatremia, [facility] [place] [address] [place] [phone], fax [phone] Diagnosis 1 Hyponatremia (E87.1) Referral Organization [facility] [employer] Referring Provider First Name Jada Referring Provider Last Name [facility] Referring Provider Specialty [facility] [employer] Ref[facility] Referred Provider Romeo Lraa Referred Address [address], [place],[address] Referred Provider Specialty Internal Med icine Referral Priority Routine General Notes Gabrielle Reid 06/2023 01:35:25 PM > referral received and faxed Clinical Notes [facility] [place] [address] [place] [phone], fax [phone] Reason hyponatremia, recent hospitalization [facility] hyp[facility] Diagnosis 1 Hyponatremia (E87.1) Referral Organization [facility] [employer] Referring Provider First Name Jada Referring Provider Last Name [facility] Referring Provider Specialty [facility] [employer] Referred Organization [facility] Referred Address [address] [place], [place],[address] Referred Provider Specialty Nephrology Referral Priority Routine [...] section and content) DATE CREATED AUTHOR 06/03/2020 [facility] DATE CREATED AUTHOR AUTHOR'S ORGANIZ ATION 11/10/2023 [facility] DATE CREATED AUTHOR AUTHOR'S ORGANIZ ATION 05/03/2024 [facility] DATE CREATED AUTHOR AUTHOR'S ORGANIZ ATION 08/17/2024 [facility] DATE CREATED AUTHOR AUTHOR'S ORGANIZ ATION 11/02/2024 [facility] DATE CREATED AUTHOR AUTHOR'S ORGANIZ ATION 11/14/2024 [facility] DATE CREATED AUTHOR AUTHOR'S ORGANIZ ATION 11/24/2024 [facility] DATE CREATED AUTHOR AUTHOR'S ORGANIZ ATION 11/25/2024 [facility] DATE CREATED AUTHOR AUTHOR'S ORGANIZ ATION 11/29/2024 [facility] DATE CREATED AUTHOR AUTHOR'S ORGANIZ ATION 12/21/2024 [facility] DATE CREATED AUTHOR AUTHOR'S ORGANIZ ATION 01/02/2025 [facility] DATE CREATED AUTHOR AUTHOR'S ORGANIZ ATION 01/11/2025 [facility] DATE CREATED AUTHOR AUTHOR'S ORGANIZ ATION 01/27/2025 [facility] DATE CREATED AUTHOR AUTHOR'S ORGANIZ ATION 02/06/2025 [facility] DATE CREATED AUTHOR AUTHOR'S ORGANIZ ATION 02/07/2025 [facility] DATE CREATED AUTHOR AUTHOR'S ORGANIZ ATION 02/22/2025 [facility] DATE CREATED AUTHOR AUTHOR'S ORGANIZ ATION 05/23/2025 [facility] DATE CREATED AUTHOR AUTHOR'S ORGANIZ ATION 05/24/2025 [facility] DATE CREATED AUTHOR AUTHOR'S ORGANIZ ATION 06/03/2025 [facility] DATE CREATED AUTHOR AUTHOR'S ORGANIZ ATION 06/08/2025 [facility] DATE CREATED AUTHOR AUTHOR'S ORGANIZ ATION 06/09/2025 [facility] DATE CREATED AUTHOR AUTHOR'S ORGANIZ ATION 06/09/2025 [facility] DATE CREATED AUTHOR AUTHOR'S ORGANIZ ATION 06/14/2025 [facility] DATE CREATED AUTHOR AUTHOR'S ORGANIZ ATION 06/15/2025 [facility] DATE CREATED AUTHOR AUTHOR'S ORGANIZ ATION 07/12/2025 [facility] DATE CREATED AUTHOR AUTHOR'S ORGANIZ ATION 07/14/2025 [facility] REASON FOR VISIT (unrecogniz [...] prosecute any alcohol or drug abuse patient.[facility] Patient Care team informatio n (unrecognized section and content) Environmental Management Specialist Relationship Specialty Start Date End Date Edwin Garcia MD PCP - General Family Medicine 02/03/24 Environmental Management Specialist Relationship Specialty Start Date End Date Edwin Garcia MD PCP - General Family Medicine 02/03/24 Environmental Management Specialist Relationship Specialty Start Date End Date Edwin Garcia MD PCP - General Family Medicine 02/03/24 Environmental Management Specialist Relationship Specialty Start Date End Date Edwin Garcia MD PCP - General Family Medicine 02/03/24 Environmental Management Specialist Relationship Specialty Start Date End Date Edwin Garcia MD PCP - General Family Medicine 02/03/24 Environmental Management Specialist Relationship Specialty Start Date End Date Edwin Garcia MD [address] [place] [address] PCP - General Family Medicine 11/26/24 Environmental Management Specialist Relationship Specialty Start Date End Date Edwin Garcia MD [address] [place] [address] PCP - General Family Medicine 11/26/24 Environmental Management Specialist Relationship Specialty Start Date End Date Edwin Garcia MD [address] [place] [address] PCP - General Family Medicine 11/26/24 Environmental Management Specialist Relationship Specialty Start Date End Date Edwin Garcia MD [address] [place] [address] PCP - General Family Medicine 11/26/24 Environmental Management Specialist Relationship Specialty Start Date End Date Jaden Maravilla APRN - DRIVER [employer]RAINING [employer] [address] [place] [address] PCP - General 06/05/25 Environmental Management Specialist Relationship Specialty Start Date End Date Reyes YaniqueTHOMAS-AVELINA [address] [place] [address] PCP - General Family Medicine 06/13/25 Ordered Prescriptions (unrec ognized section and content) [...] Huerta RN)1309 (Given - Provider: Pat Nieves RN)2107 (Not Given - Provider: Adia Blandon RN [...] not met - Comment: order parameters not met)2013 (Not Given - Provider: Nancy Fox RN [...] Kaiser RN) 0840 (Given - Provider: Flip Dubose RN) pravastatin (PRAVACHOL) tablet 40 mg 40 mg, Oral, DAILY, First dose on Tue06/02/25 at 1415, Until Discontinued 0931 (Given - Provider: Pat Nieves RN) 0851 (Given - Provider: Flip Dubose RN) 0842 (Given - Provider: Flip Dubose RN) sodium chloride (OCEAN) 0.65 % nasal spray 2 spray 2 spray, Each Nostril, EVERY 4 HOURS, First dose (after last modification) on 06/02/25 at 1415, Until Discontinued 0204 (Not Given [...] Flip Dubose RN)2026 (Given - Provider: Nancy Fox, RN) 0206 (Given - Provider: Nancy Fox, RN)0542 (Given - Provider: Nancy Fox RN)1036 (Given - Provider: Flip Dubose RN)1528 (Not Given - Provider: Flip Dubose RN - Reason: Patient/family refused)181 (Due)221 (Due) sodium chloride flush 0.9 % injection [...] Pat Nieves RN)215 (Given - Provider: Adia Blandon RN) 0853 (Given - Provider: Flip Dubose RN)2014 (Given - Provider: Nancy Fox, ERIN) 0841 (Given - Provider: Flip Dubose RN)2100 [...] Dubose RN)1433 (Given - Provider: Flip Dubose RN)2020 (Given - Provider: Nancy Fox RN) 0841 (Given - Provider: Flip Dubose RN) tamsulosin (FLOMAX) capsule 0.4 mg 0.4 mg, Oral, DAILY, First dose on Tue06/02/25 at 1415, Until Discontinued, Do not crush or break. Give 30 minutes after a full meal to limit risk of orthostatic hypotension/falls. 0932 (Given - Provider: Pat Nieves RN) 0969 (Given - Provider: Flip Dubose, RN) 0841 (Given - Provider: Flip Dubose [...] dehydration? No, Is the patient anuric? No 6873 (Given - Provider: Flip Dubose RN - [...] Hazardous med- See facility policy for handling/disposal 527 (Given - Provider: Flip Dubose RN) warfarin [...] OR if serum Na+ goal is exceeded. 5670 (New Bag - Provider: Adia Blandon, RN) 0241 (Stopped - Provider: Monico Kaiser RN) PRN [...] for injection by adding 1 mL of labor relations specialist-supplied sterile diluent or sterile water for injection [...] Starting on Tue06/02/25 at 1205, Until Discontinued, Nausea, Vomiting, Administer if oral route cannot be used. 2140 (Given - Provider: Adia Blandon RN) 0750 (Given - Provider: Flip Dubose RN) ondansetron (ZOFRAN-ODT) disintegrating tablet 4 mg(Linked Group 3) 4 mg, Oral, EVERY 8 HOURS PRN, Starting on 06/02/25 at 1205, Until Discontinued, Nausea, Vomiting 2140 (See Alternative - Provider: Adia Blandon RN) 0750 (See Alternative - Provider: Flip Dubose RN) polyethylene glycol (GLYCOLAX) packet 17 g [...] med 10 mEq, IntraVENous, PRN, Starting on 7/20/25 at 1205, Until Discontinued, at 100 mL/hr, Potassium Replacement, K Lab Replacement Action 2.7-3.0 10 mEq IVPB x 6 doses (60 mEq Total) < 2.7 CALL PHYSICIAN and 10 mEq IVPB x 6 doses (60 mEq Total) Infuse at 10 mEq/hr Repeat Potassium lab 1 hour after final administration. Not for use in patients with CrCl less than 30 mL/min. Scheduled Medication Order 06/21/2025 06/22/2025 06/23/2025 apixaban (ELIQUIS) tablet 5 mg 5 mg, oral, 2 times daily, First dose on Tue06/22/25 at 2100, Indication: Nonvalvular Atrial Fibrillation (NVAF) 211 (Given - Provider: Yonathan Joy RN) 0856 (Given - Provider: Debra Huggins RN)2100 (Due) atenoloL (TENORMIN) tablet 25 mg (CANCELED) 25 mg, oral, Daily, First dose on Tue06/22/25 at 0930, Hold if systolic BP <100 or hr <60 1014 (Given - Provider: Debra Huggins RN) gabapentin (NEURONTIN) capsule 300 mg (CANCELED) 300 mg, oral, Daily, First dose on Tue06/18/25 at 0900, Look-alike/sound-alike medication - verify indication for use. 0859 (Given - Provider: Lauren Gaona RN) glucagon HCL injection 1 mg (COMPLETED) 1 mg, intramuscular, Once, On Tue06/22/25 at 1530, For 1 dose 1625 (Given - Provider: Debra Huggins RN) levothyroxine (SYNTHROID, LEVOTHROID) tablet 25 mcg 25 mcg, oral, Daily, First dose on Tue06/18/25 at 0600, Look-alike/sound-alike medication. Verify indication for use Administer on empty stomach at least ONE hour before or TWO hours after food Enteral Feeding: For 7 days or less of tube feeding- do NOT hold tube feedings, after 7 days- hold tube feedings ONE hour before and ONE hour after administration DOES NOT APPLY TO NEONATES Monitor thyroid function tests weekly 0603 (Given - Provider: Nicole Sparks RN) 0649 (Given - Provider: Yonathan Joy RN) 0501 (Given - Provider: Yonathan Joy RN) lidocaine (LIDODERM) 5 % 1 patch 1 patch, transdermal, Administer over 12 Hours, Daily, First dose on Tue06/19/25 at 0900, Apply to intact skin on the painful area on back. Patch(es) may remain in place for up to 12 hours in any 24-hour period. Remove previous patch, if present, before applying new. 0859 (Medication Applied - Provider: Lauren Gaona RN - Comment: back)2058 (Medication Removed - Provider: Yonathan Joy RN) 0831 (Medication Applied - Provider: Debra Huggins RN - Comment: back)2030 (Medication Removed - Provider: Yonathan Joy RN) 0856 (Medication Applied - Provider: Debra Huggins RN - Comment: back)2055 (Due: Medication Removed - Provider: Debra Huggins RN) midodrine (PROAMATINE) tablet 5 mg 5 mg, oral, 3 times daily, First dose on Tue06/21/25 at 1430, Hold for systolic blood pressure more than 120 Look-alike/sound-alike medication - verify indication for use. 1549 (Given - Provider: Lauren Gaona RN)2258 (Not Given - Provider: Yonathan Joy RN - Reason: Patient/family refused - Comment: bp 130/69) 0650 (Given - Provider: Yonathan Joy RN - Comment: BP 109/93)1327 (Given - Provider: Debra Huggins RN)2113 (Not Given - Provider: Yonathan Joy RN - Reason: Order parameters not met - Comment: bp 129/75) 0501 (Not Given - Provider: Yonathan Joy RN - Reason: Order parameters not met - Comment: bp 137/63)1430 (Given - Provider: Debra Huggins RN)2200 (Due) pantoprazole (PROTONIX) EC tablet 40 mg 40 mg, oral, Daily, First dose on Tue06/18/25 at 0600, Look-alike/sound-alike medication - verify indication for use. If patient is receiving enteral feeding, consider alternative PPI or continue IV pantoprazole until the delayed-release tablet can be taken orally, Indication: GERD 0603 (Given - Provider: Nicole Sparks RN) 0649 (Given - Provider: Yonathan Joy, ERIN) 0501 (Given - Provider: Yonathan Joy RN) rosuvastatin (CRESTOR) tablet 5 mg 5 mg, oral, Nightly, First dose on Tue06/19/25 at 2200, Look-alike/sound-alike medication - verify indication for use. 2030 (Given - Provider: Yonathan Joy RN) 2112 (Given - Provider: Yonathan Joy RN) 2199 (Due) sodium chloride tablet 1,000 mg 1,000 mg, oral, 3 times daily around food, First dose (after last modification) on Tue06/20/25 at 1700 0903 (Given - Provider: Lauren Gaona RN)1320 (Given - Provider: Lauren Gaona RN)1927 (Given - Provider: Lauren Goana RN) 0830 (Given - Provider: Debra Huggins RN)1208 (Given - Provider: Debra Huggins RN)1625 (Given - Provider: Debra Huggins RN) 0856 (Given - Provider: Debra Huggins RN)1203 (Given - Provider: Debra Huggins RN)1700 (Due) urea (URE-NA) packet 15 g 15 g, oral, 2 times daily, First dose on Tue06/20/25 at 1330, Mix each 15 g dose with 3 to 4 ounces of water or juice. 0904 (Given - Provider: Lauren Gaona RN)2030 (Given - Provider: Yonathan Joy RN) 0831 (Given - Provider: Debra Huggins RN)2113 (Given - Provider: Yonathan Joy, ERIN) 0857 (Given - Provider: Debra Huggins RN)2100 (Due) warfarin (COUMADIN) tablet 2.5 mg (CANCELED) 2.5 mg, oral, User Specified (Once per day on Tuesday), First dose on Tue06/20/25 at 1600, To be given on SPECIFIC DAYS Food-Drug Interaction Education Required Look-alike/sound-alike medication - verify indication for use Avoid intake of foods with large amounts of vitamin K Enteral Feeding: If patient is on tube feedings, avoid formulas containing soy protein Transition to oral diet may require decrease in warfarin dose, Target INR: 2 - 3, Indication: Atrial fibrillation/embolism, Hold warfarin & notify prescriber if INR greater than: 3.5 1625 (Given - Provider: Debra Huggins, ERIN) warfarin (COUMADIN) tablet 5 mg (CANCELED) 5 mg, oral, User Specified (Once per day on Tuesday), First dose on Tue06/19/25 at 1700, To be given on SPECIFIC DAYS Food-Drug Interaction Education Required Look-alike/sound-alike medication - verify indication for use Avoid intake of foods with large amounts of vitamin K Enteral Feeding: If patient is on tube feedings, avoid formulas containing soy protein Transition to oral diet may require decrease in warfarin dose, Target INR: 2 - 3, Indication: Atrial fibrillation/embolism, Hold warfarin & notify prescriber if INR greater than: 3.5 1549 (Given - Provider: Lauren Gaona RN) Continuous Medication Order 06/21/2025 06/22/2025 06/23/2025 heparin infusion 05816 units/500 mL in 0.45% NaCl (50 units/mL premix) () 300-3,500 Units/hr (6-70 mL/hr), intravenous, Continuous, Starting on Tue06/18/25 at 1400, For 4 days 8 hours, Please titrate from initial infusion rate listed above. MAXIMUM initial infusion: 1000 units/hr Heparin Low Intensity Infusion (Cardiology) Heparin Adjustment Table: Anti-Xa Therapeutic Goal: 0.3 - 0.7 IU/mL Anti-Xa results (IU/mL): Ant-Xa every 6 hours after dosage adjustment until therapeutic x 2 then every AM -less than 0.1 IU/mL: bolus 2000 units, increase rate by 150 units/hr (3 mL/hr), next Anti-Xa in 6 hrs. -0.1 - 0.29 IU/mL: increase rate by 100 units/hr (2 mL/hr), next Anti-Xa in 6 hours. -Notify provider if: Anti-Xa less than 0.3 IU per mL for 2 consecutive results. -0.3 - 0.7 IU/mL: Therapeutic level: next Anti-Xa in 6 hours then every AM. -0.71 - 0.8 IU/mL: decrease rate by 50 units/hr (1 mL/hr), next Anti-Xa in 6 hours. -0.81 - 1.6 IU/mL: stop infusion for 30 minutes, decrease rate by 100 units/hr (2 mL/hr), next Anti-Xa in 6 hours. -1.61 - 2 IU/mL: stop infusion for 60 minutes, decrease rate by 150 units/hr (3 mL/hr), next Anti-Xa in 6 hours. - Greater than 2 IU/mL: stop infusion for 90 minutes, decrease rate by 250 units/hr (5 mL/hr), next Anti-Xa in 6 hours. -Notify provider if: Platelet count less than 100,000/mm3 or less than or equal to 50% of baseline Monitor for signs of bleeding. Look-alike/sound-alike medication - verify indication for use., Indication: Afib or Mechanical Valve, INITIAL Infusion Dose (Units/hr): 950 units/hr 0711 (Handoff - Provider: Nicole Sparks RN)0935 (Stop Bag - Provider: Lauren Gaona RN - Comment: neuro change, hold at this time per Dr Crisostomo)1326 (New Bag - Provider: Lauren Gaona RN) 0712 (Handoff - Provider: Yonathan Joy RN)1848 (Handoff - Provider: Debra Huggins RN)2100 (Stop Bag - Provider: Yonathan Joy RN - Comment: [Order ends at this time. Document the following action when infusion is complete: Stop Bag]) PRN Medication Order 06/21/2025 06/22/2025 06/23/2025 acetaminophen (TYLENOL EXTRA STRENGTH) tablet 1,000 mg(Linked Group 1) 1,000 mg, oral, Every 6 hours PRN, severe pain - pain scale 7-10, Starting on Tue06/18/25 at 2237 0141 (Given - Provider: Yonathan Joy RN) acetaminophen (TYLENOL) tablet 650 mg(Linked Group 1) 650 mg, oral, Every 6 hours PRN, mild pain - pain scale 1-3, moderate pain - pain scale 4-6, temperature greater than 38 C, headaches, Starting on Tue06/18/25 at 2237 0141 (See Alternative - Provider: Yonatahn Joy RN) calcium gluconate 3,000 mg in sodium chloride 0.9 % 100 mL IVPB 3,000 mg, intravenous, at 43.3 mL/hr, Administer over 3 Hours, As needed, ionized calcium 3.5 to 3.9 mg/dL, Starting on 06/22/25 at 1115, IV Administration of calcium via a central or deep vein preferred. Avoid administration in small hand veins VESICANT (RED) calcium gluconate 4,000 mg in sodium chloride 0.9 % 250 mL IVPB 4,000 mg, intravenous, at 72.5 mL/hr, Administer over 4 Hours, As needed, ionized calcium 3.4 mg/dL or less, Starting on 06/22/25 at 1115, IV administration of calcium via a central or deep vein is preferred. Avoid administration in small hand veins. VESICANT (RED) calcium gluconate IVPB 2000 mg/100 mL (20 mg/mL premix) 2,000 mg, intravenous, at 50 mL/hr, Administer over 2 Hours, As needed, ionized calcium 4 to 4.3 mg/dL, Starting on 06/22/25 at 1115, IV Administration of calcium via a central or deep vein preferred. Avoid administration in small hand veins VESICANT (RED) dextrose (GLUTOSE) 40 % gel 15 g 15 g, oral, As needed, low blood sugar, blood glucose less than 70 mg/dL, Starting on Tue06/17/25 at 1622, If patient conscious and taking PO. If blood glucose is not greater than 70 mg/dL after initial treatment, repeat treatment. dextrose 50 % in water (D50W) 50% solution 25 mL 25 mL, intravenous, As needed, low blood sugar, blood glucose less than 70 mg/dL and unconscious or NPO with IV access, Starting on Tue06/17/25 at 1622, Push over 1-3 minutes STAT. If conscious and not NPO, immediately follow with meal tray or high protein (7 grams) snack if tray not available. If NPO, initiate 5% dextrose in water at 100 mL/hr and contact prescriber for additional orders. If blood glucose is not greater than 70 mg/dL after initial treatment, repeat treatment. VESICANT (RED) Warning: HYPERTONIC solution. glucagon HCL injection 1 mg 1 mg, intramuscular, As needed, low blood sugar, blood glucose less than 70 mg/dL and unconscious or NPO without IV access., Starting on Tue06/17/25 at 1622, If conscious and not NPO, immediately follow with meal tray or high protein (7Grams) snack if tray not available. If NPO, initiate IV 5% Dextrose/Water at 100 mL/hr and contact prescriber for additional orders. If blood glucose is not greater than 70 mg/dL after initial treatment, repeat treatment. heparin (porcine) injection 2,000 Units 2,000 Units, intravenous, As needed, for Anti-Xa less than 0.1 IU/mL, Starting on Tue06/18/25 at 1358, Look-alike/sound-alike medication - verify indication for use. Observe for bleeding. hydrALAZINE (APRESOLINE) injection 10 mg 10 mg, intravenous, Every 6 hours PRN, high blood pressure, Starting on Tue06/17/25 at 1625, For systolic blood pressure greater than 180 mmHg and heart rate less than 60. Look-alike/sound-alike medication - verify indication for use. Administer IV doses as a slow IV push; maximum rate: 5 mg/minute. labetaloL (NORMODYNE,TRANDATE) injection 20 mg 20 mg, intravenous, Every 10 min PRN, high blood pressure, Starting on Tue06/17/25 at 1625, For systolic blood pressure greater than 180 mmHg and heart rate greater than 60. May administer up to 3 times in 1 hour Look-alike/sound-alike medication - verify indication for use. magnesium sulfate IVPB 2000 mg/50 mL in iso-osmotic water (40 mg/mL premix)(Linked Group 2) 2,000 mg, intravenous, at 25 mL/hr, Administer over 120 Minutes, As needed, for magnesium level 1.7 to 1.9 mg/dL or ionized magnesium level 0.45 to 0.5 mmol/L, Starting on Tue06/17/25 at 1622, Use premix solution. Default to ionized magnesium level in cases where patient has both magnesium and ionized magnesium results. If administered, check ionized magnesium (or total magnesium if ionized magnesium unavailable) level 4 hours after infusion. 0928 (See Alternativ e - Provider: Debra Huggins, RN)1328 (See Alternative - Provider: Debra Huggins, RN) magnesium sulfate IVPB 4000 mg/100 mL in iso-osmotic water (40 mg/mL premix)(Linked Group 2) 4,000 mg, intravenous, at 25 mL/hr, Administer over 240 Minutes, As needed, for magnesium level 1.6 mg/mL or less, or ionized magnesium level 0.44 mmol/L or less, Starting on Tue06/17/25 at 1622, Use premix solution. Default to ionized magnesium level in cases where patient has both magnesium and ionized magnesium results. If administered, check ionized magnesium (or total magnesium if ionized magnesium unavailable) level 4 hours after infusion. 0928 (New Bag - Provider: Debra Huggins RN)1328 (Stop Bag - Provider: Debra Huggins, ERIN) potassium chloride (K-TAB,KLOR-CON) CR tablet 20-60 mEq(Linked Group 3) 20-60 mEq, oral, As needed, Potassium Supplementation, Starting on 06/22/25 at 1114, Progress to oral potassium replacement when patient tolerating oral intake. If dose administered, recheck potassium level 4 hours after last dose. For potassium level 3.4 to 3.7 mmol/L =20 mEq. For potassium level 3.1 to 3.3 mmol/L =40 mEq. For potassium level 3 mmol/L or less =60 mEq. Do not crush or chew. potassium chloride (KAYCIEL) 20 mEq/15 mL solution 20-60 mEq(Linked Group 3) 20-60 mEq, oral, As needed, Potassium Supplementation, Starting on 06/22/25 at 1114, Progress to oral potassium replacement when patient tolerating oral intake. If dose administered, recheck potassium level 4 hours after last dose. For potassium level 3.4 to 3.7 mmol/L =20 mEq. For potassium level 3.1 to 3.3 mmol/L =40 mEq. For potassium level 3 mmol/L or less =60 mEq. Must dilute before use - Mix in 3-8 ounces of water or juice before administration When administering in feeding tube, flush before and after per policy and monitor potassium levels potassium chloride IVPB 10 mEq/100 mL in water (0.1 mEq/mL premix)(Linked Group 3) 10 mEq, intravenous, at 100 mL/hr, Administer over 60 Minutes, As needed, POTASSIUM REPLACEMENT, Starting on 06/22/25 at 1114, IV if unable to use oral/enteral with the current dosing strategies For potassium level 3.4 to 3.7 mmol/L =20 mEq. For potassium level 3.1 to 3.3 mmol/L =40 mEq. For potassium level 3 mmol/L or less =60 mEq. Use central line when applicable. Recheck potassium level 1 hour after total IVPB infusion complete With each potassium result continue the replacement orders as needed VESICANT (YELLOW) Infuse each 10 mEq over a minimum of 1 hour. sod phos di, mono-K phos mono (K-PHOS NEUTRAL) 250 mg tablet 2 tablet(Linked Group 4) 2 tablet, oral, As needed, for phosphorous level 2.3 mg/dL or less. Do not administer if potassium is more than 4.5, Starting on 06/22/25 at 1114, If dose administered, recheck phosphorus level 4 hours after last dose. Look-alike/sound-alike medication - verify indication for use. Give with a full glass of water. sodium chloride 0.9 % flush 10 mL 10 mL, intravenous, As needed, line care, Starting on 06/17/25 at 1612 0831 (Given - Provider: Debra Huggins RN) sodium phosphate 20 mmol in sodium chloride 0.9 % 100 mL IVPB(Linked Group 4) 20 mmol, intravenous, at 26.7 mL/hr, Administer over 4 Hours, As needed, for phosphorous level 2.3 mg/dL or less, Starting on 06/22/25 at 1114, Administer over 4 hours via dedicated line(central line). If administered, recheck phosphorus level 4 hours after infusion complete. Infuse using central line access. sodium phosphate 20 mmol in sodium chloride 0.9 % 250 mL IVPB(Linked Group 4) 20 mmol, intravenous, at 42.8 mL/hr, Administer over 6 Hours, As needed, for phosphorous level 2.3 mg/dL or less, Starting on 06/22/25 at 1114, Administer over 6 hours via dedicated line (peripheral line). If administered, recheck phosphorus level 4 hours after infusion complete. Linked Groups Order Group 1: acetaminophen (TYLENOL) tablet 650 mgJump to med 650 mg, oral, Every 6 hours PRN, mild pain - pain scale 1-3, moderate pain - pain scale 4-6, temperature greater than 38 C, headaches, Starting on Tue06/18/25 at 2237 Or acetaminophen (TYLENOL EXTRA STRENGTH) tablet 1,000 mgJump to med 1,000 mg, oral, Every 6 hours PRN, severe pain - pain scale 7-10, Starting on Tue06/18/25 at 2237 Group 2: magnesium sulfate IVPB 2000 mg/50 mL in iso-osmotic water (40 mg/mL premix)Jump to med 2,000 mg, intravenous, at 25 mL/hr, Administer over 120 Minutes, As needed, for magnesium level 1.7 to 1.9 mg/dL or ionized magnesium level 0.45 to 0.5 mmol/L, Starting on Tue06/17/25 at 1622, Use premix solution. Default to ionized magnesium level in cases where patient has both magnesium and ionized magnesium results. If administered, check ionized magnesium (or total magnesium if ionized magnesium unavailable) level 4 hours after infusion. Or magnesium sulfate IVPB 4000 mg/100 mL in iso-osmotic water (40 mg/mL premix)Jump to med 4,000 mg, intravenous, at 25 mL/hr, Administer over 240 Minutes, As needed, for magnesium level 1.6 mg/mL or less, or ionized magnesium level 0.44 mmol/L or less, Starting on Tue06/17/25 at 1622, Use premix solution. Default to ionized magnesium level in cases where patient has both magnesium and ionized magnesium results. If administered, check ionized magnesium (or total magnesium if ionized magnesium unavailable) level 4 hours after infusion. Group 3: potassium chloride (K-TAB,KLOR-CON) CR tablet 20-60 mEqJump to med 20-60 mEq, oral, As needed, Potassium Supplementation, Starting on Tue06/22/25 at 1114, Progress to oral potassium replacement when patient tolerating oral intake. If dose administered, recheck potassium level 4 hours after last dose. For potassium level 3.4 to 3.7 mmol/L =20 mEq. For potassium level 3.1 to 3.3 mmol/L =40 mEq. For potassium level 3 mmol/L or less =60 mEq. Do not crush or chew. Or potassium chloride (KAYCIEL) 20 mEq/15 mL solution 20-60 mEqJump to med 20-60 mEq, oral, As needed, Potassium Supplementation, Starting on 06/22/25 at 1114, Progress to oral potassium replacement when patient tolerating oral intake. If dose administered, recheck potassium level 4 hours after last dose. For potassium level 3.4 to 3.7 mmol/L =20 mEq. For potassium level 3.1 to 3.3 mmol/L =40 mEq. For potassium level 3 mmol/L or less =60 mEq. Must dilute before use - Mix in 3-8 ounces of water or juice before administration When administering in feeding tube, flush before and after per policy and monitor potassium levels Or potassium chloride IVPB 10 mEq/100 mL in water (0.1 mEq/mL premix)Jump to med 10 mEq, intravenous, at 100 mL/hr, Administer over 60 Minutes, As needed, POTASSIUM REPLACEMENT, Starting on 06/22/25 at 1114, IV if unable to use oral/enteral with the current dosing strategies For potassium level 3.4 to 3.7 mmol/L =20 mEq. For potassium level 3.1 to 3.3 mmol/L =40 mEq. For potassium level 3 mmol/L or less =60 mEq. Use central line when applicable. Recheck potassium level 1 hour after total IVPB infusion complete With each potassium result continue the replacement orders as needed VESICANT (YELLOW) Infuse each 10 mEq over a minimum of 1 hour. Group 4: sodium phosphate 20 mmol in sodium chloride 0.9 % 250 mL IVPBJump to med 20 mmol, intravenous, at 42.8 mL/hr, Administer over 6 Hours, As needed, for phosphorous level 2.3 mg/dL or less, Starting on 06/22/25 at 1114, Administer over 6 hours via dedicated line (peripheral line). If administered, recheck phosphorus level 4 hours after infusion complete. Or sodium phosphate 20 mmol in sodium chloride 0.9 % 100 mL IVPBJump to med 20 mmol, intravenous, at 26.7 mL/hr, Administer over 4 Hours, As needed, for phosphorous level 2.3 mg/dL or less, Starting on 06/22/25 at 1114, Administer over 4 hours via dedicated line(central line). If administered, recheck phosphorus level 4 hours after infusion complete. Infuse using central line access. Or sod phos di, mono-K phos mono (K-PHOS NEUTRAL) 250 mg tablet 2 tabletJump to med 2 tablet, oral, As needed, for phosphorous level 2.3 mg/dL or less. Do not administer if potassium is more than 4.5, Starting on 06/22/25 at 1114, If dose administered, recheck phosphorus level 4 hours after last dose. Look-alike/sound-alike medication - verify indication for use. Give with a full glass of water. FOR RECORDS PERTAINING TO PATIENTS WHO ARE [...] BE BASED ON THE PRIMARY CLINICAL RECORDS. [employer] provides no warranty or guarantee of the accuracy or completeness of information in this document.
--- NOTE | 2025-07-19 12:05 | SWNOTE1 ---
JACQUELYN received a call from Eileen at the [facility] and she received a call from our ED in regards to this patient. Eileen voiced that pt is not from there, but they are happy to help if needed. Pt has [employer] Medicare and would be a precert to go skilled.
[2025-07-19 12:31] LABS: Hematocrit 38.3 % (42.0-54.0); Hemoglobin 13.3 g/dL (14.0-18.0); Immature Granulocytes Abs Auto 0.02 10^3/uL (0.00-0.03); Immature Granulocytes Pct Auto 0.2 % (0.0-0.5); Lymphocytes Absolute Auto 0.9 10^3/uL (1.2-3.8); Mean Corpuscular HGB Conc 34.7 g/dL (29.9-35.2); Mean Corpuscular Hemoglobin 31.1 pg (25.9-34.0); Mean Corpuscular Volume 89.7 fL (80.0-94.0); Platelet Count 156 10^3/uL (150-450); Red Blood Count 4.27 10^6/uL (4.70-6.10); White Blood Count 8.1 10^3/uL (4.0-11.0)
[2025-07-19 12:37] LABS: Glucose Urine UA NEGATIVE (NEGATIVE)
[2025-07-19 12:47] LABS: Alanine Aminotransferase 29 U/L (16-63); Albumin Globulin Ratio 1.2; Albumin Level 3.7 g/dL (3.4-5.0); Alkaline Phosphatase 97 U/L (46-116); Anion Gap 12.0; Aspartate Amino Transferase 25 U/L (15-37); Blood Urea Nitrogen 18.0 mg/dL (7.0-18.0); Calcium 8.8 mg/dL (8.5-10.1); Carbon Dioxide 26.5 mmol/L (21.0-32.0); Chloride 98 mmol/L (98-107); Estimated GFR (African America >60 (>=60 mL/min/1.73m^2); Estimated GFR (Non-African Ame >60 (>=60 mL/min/1.73m^2); Globulin 3.1 g/dL; Glucose 94 mg/dL (74-106); Lipase 24.0 U/L (16.0-77.0); Potassium 4.5 mmol/L (3.5-5.1); Sodium 132 mmol/L (136-145); Total Protein 6.8 g/dL (6.4-8.2)
[2025-07-19 12:50] LABS: SARS-CoV-2 Ag NEGATIVE (NEGATIVE)
[2025-07-19 12:51] LABS: Lactate/Lactic Acid 2.0 mmol/L (0.4-2.0)
[2025-07-19 12:52] LABS: Cast Seen? NONE SEEN #/LPF (NONE SEEN); Crystals Seen? None Seen #/HPF (None Seen); Urine Culture Indicated NO
--- NOTE | 2025-07-19 13:06 | CT_ITS ---
The [address] [address] Patient Name: INDIANA ZABALA MRN: [id number] date: 1940 Sex: M Assigned Patient Location: ER Current Patient Location: ER Accession/Order Number: [id number] Exam Date: 07/19/2025 13:32 Report Date: 07/19/2025 14:10 At the request of: TRI CHANG DO Procedure: CT abdomen pelvis w con CT ABDOMEN AND PELVIS WITH INTRAVENOUS CONTRAST: CLINICAL HISTORY: Altered mental status fever nausea vomiting abdominal pain. COMPARISON: CT abdomen and pelvis 07/14/2024 TECHNIQUE: Spiral images were obtained through the abdomen and pelvis following the administration of intravenous contrast. This CT exam was performed using one or more following dose reduction techniques: Automated exposure control, adjustment of the mA and/or kV according to patient size, or use of iterative reconstruction technique. FINDINGS: Lung Bases: [Trace right-sided pleural effusion. Bibasilar atelectasis/scarring.] Organs:Questionable cholelithiasis. Liver gallbladder pancreas and adrenal glands appear unremarkable. Wedge-shaped hypodensity is seen involving the spleen suggestive of infarct. Small cyst right kidney. Left kidney demonstrates mild cortical scarring. Aorta appears normal in caliber. GI: Small hiatal hernia. Distal stomach is grossly unremarkable. Small bowel appears nondilated. CT evidence of nonperforated sigmoid diverticulitis. No obstruction. Pelvis:[Urinary bladder is grossly unremarkable. Prostate gland normal in size. Right-sided inguinal hernia containing a small amount of fluid. The appendix is seen within the right inguinal hernia without evidence of appendicitis.] Peritoneum/Retroperitoneum:No free air free fluid or lymphadenopathy.[ Abd wall/Bones:Abdominal wall demonstrates no acute process. Osseous structures demonstrate degenerative change.[ CT/CT abdomen pelvis w con IMPRESSION: 1. CT evidence of nonperforated sigmoid diverticulitis. No obstruction. 2. Questionable cholelithiasis. 3. Trace right pleural effusion. 4. Right inguinal hernia. 5. Small hiatal hernia. Impression dictated by: Indiana Gooden Jr., D.O. 07/19/2025 2:10 PM Dictation Location: [place] [address] Electronically authenticated by: [id number] Y Date: 07/19/2025 14:10
--- NOTE | 2025-07-19 13:06 | CT_ITS ---
The [address] [address] Patient Name: INDIANA ZABALA MRN: [id number] date: 1940 Sex: M Assigned Patient Location: ER Current Patient Location: ER Accession/Order Number: [id number] Exam Date: 07/19/2025 13:32 Report Date: 07/19/2025 13:59 At the request of: TRI CHANG DO Procedure: CT chest w con CT chest w con 07/19/2025 1:45 PM SIGN AND SYMPTOMS: Altered mental status, fever, nausea, vomiting, abdominal pain CONTRAST: 100 mL of intravenous Omnipaque 300 TECHNIQUE: Multidetector CT axial slices of the chest were obtained with IV contrast. Multiplanar reformats were performed and viewed on a separate workstation and reviewed to further define anatomy and possible pathology. CT was performed with one or more of the following dose reduction techniques: Automated exposure control, adjustment of the mA and/or kV according to patient size, or use of iterative reconstruction technique. COMPARISON: None. FINDINGS: Lower neck: Thyroid gland within normal limits, no supraclavicle adenopathy. Vessels: Atherosclerotic changes are noted in the thoracic aorta, origins of the great vessels, and coronary arteries. There is no evidence of pulmonary embolism. Mediastinum and Karyn: Within normal limits. Heart: Normal size. No pericardial effusion. Airways: Within normal limits Lungs: Mild dependent atelectasis is noted in the lung bases. Pleura: There is a small right-sided pleural effusion. Chest Wall: Within normal limits. Upper Abdomen: There is linear hypoattenuation within the spleen with adjacent edema. This may represent a splenic infarct with accompanying edema. Underlying possibilities would include high-grade splenic injury. Correlation with history of recent trauma is also recommended. Bones: Degenerative changes are noted thoracic spine. There is fusion hardware in the cervical spine. Degenerative changes are noted in the shoulders bilaterally. CT/CT chest w con IMPRESSION: There is linear hypoattenuation within the spleen with adjacent edema. This may represent a splenic infarct with accompanying edema. Underlying possibilities would include high-grade splenic injury. Correlation with history of recent trauma is also recommended. There is a small right-sided pleural effusion. Dependent atelectasis is noted in the lung bases. There is no evidence of pulmonary embolus. Impression dictated by: Antelmo Sinha M.D. 07/19/2025 1:59 PM Dictation Location: [place] [address] Electronically authenticated by: [id number] Y Date: 07/19/2025 13:59
[2025-07-19] MEDS: CIPROFLOXACIN IN 5 % DEXTROSE 400 MG/200 ML PREMIX 200 MG IV (14:53)
[2025-07-19] MEDS: METRONIDAZOLE/SODIUM CHLORIDE 500 MG/100 ML PREMIX 100 MG IV (16:00)
--- NOTE | 2025-07-19 16:15 | ED.GENADUL1 ---
HPI HPI - General Adult General Chief complaint: Altered Mental Status Time Seen by Provider: 07/19/25 11:56 Source: medical record Source information: med record not available at time of arrival. Patient is non-verbal. Mode of arrival: ambulance History of Present Illness HPI narrative: Patient is an 85-year-old male presenting to the emergency department via EMS for concerns of abdominal pain and altered mentation. Patient has a history of previous stroke, and is a poor historian at baseline per the . According to his , patient has been complaining of abdominal pain for the last 24 hours. Otherwise, she states that the patient has been at his baseline state of health. He has not been complaining of any cough or congestion or URI symptoms. He has not been complaining of chest pain or shortness of breath. He has not been complaining of any dysuria or any other concerning symptoms. She states that he is on Eliquis for atrial fibrillation, she gives him his medication every day without any missed doses. Related Data Home Medications ?Medication ?Instructions ?Recorded ?Confirmed glimepiride 2 mg tablet 2 mg PO DAILY 08/21/23 07/19/25 levothyroxine 25 mcg tablet 25 mcg PO QAM 08/21/23 07/19/25 pravastatin 40 mg tablet 40 mg PO DAILY 08/21/23 07/19/25 tamsulosin 0.4 mg capsule 0.4 mg PO DAILY 08/21/23 07/19/25 finasteride 5 mg tablet 5 mg PO DAILY 11/13/23 07/19/25 gabapentin 300 mg capsule 300 mg PO DAILY 08/13/24 07/19/25 atenolol 25 mg tablet 12.5 mg PO DAILY 06/13/25 07/19/25 apixaban 5 mg tablet (Eliquis) 5 mg PO Q12H 07/19/25 07/19/25 meloxicam 7.5 mg tablet 7.5 mg PO DAILY 07/19/25 07/19/25 sodium chloride 1,000 mg soluble 1,000 mg PO BID 07/19/25 07/19/25 tablet Previous Rx's ?Medication ?Instructions ?Recorded aspirin 81 mg tablet,delayed 81 mg PO QD 5 days #5 tabs 06/13/25 release Allergies Allergy/AdvReac Type Severity Reaction Status Date / Time No Known Drug Allergies Allergy Verified 06/12/25 18:03 Opioid HPI Opioid Management Most Recent Opioid Data: Last Pain Scale 0 06/13/25, 09:05 Last Pain Intensity 0 06/13/25, 09:05 Last ORT Total Score 0 06/12/25, 21:27 Last ORT Risk Category Low Risk 06/12/25, 21:27 Ur Phencyclidine Scrn, (NEGATIVE) Negative 08/21/23, 03:22 Review of Systems ROS Status of ROS 10 or more systems reviewed and unremarkable except as noted in history and below [facility] Medical History (Updated 07/19/25 @ 15:53 by Albin Merrill DO) Diverticulitis ?K57.92 - Diverticulitis of intestine, part unspecified, without perforation or abscess without bleeding (ICD-10) Adult hypothyroidism ?E03.9 - Hypothyroidism, unspecified (ICD-10) Hyponatremia ?E87.1 - Hypo-osmolality and hyponatremia (ICD-10) Paroxysmal atrial fibrillation ?I48.0 - Paroxysmal atrial fibrillation (ICD-10) Type 2 diabetes mellitus with hyperglycemia ?E11.65 - Type 2 diabetes mellitus with hyperglycemia (ICD-10) Syncope ?R55 - Syncope and collapse (ICD-10) Abrasion of scalp ?S00.01XA - Abrasion of scalp, initial encounter (ICD-10) Closed head injury ?S09.90XA - Unspecified injury of head, initial encounter (ICD-10) Laceration of scalp ?S01.01XA - Laceration without foreign body of scalp, initial encounter (ICD-10) Low back pain ?M54.50 - Low back pain, unspecified (ICD-10) Lumbar spondylosis ?M47.816 - Spondylosis without myelopathy or radiculopathy, lumbar region (ICD-10) Thoracic back pain ?M54.6 - Pain in thoracic spine (ICD-10) 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 - Other specified mononeuropathies (ICD-10) Paresthesias in right hand ?R20.2 - Paresthesia of skin (ICD-10) Foreign body in right ear ?T16.1XXA - Foreign body in right ear, initial encounter (ICD-10) Hyponatremia ?E87.1 - Hypo-osmolality and hyponatremia (ICD-10) Hypomagnesemia ?E83.42 - Hypomagnesemia (ICD-10) RADHA (acute kidney injury) ?N17.9 - Acute kidney failure, unspecified (ICD-10) Influenza ?J11.1 - Influenza due to unidentified influenza virus with other respiratory manifestations (ICD-10) Hypomagnesemia ?E83.42 - Hypomagnesemia (ICD-10) Acute hyponatremia ?E87.1 - Hypo-osmolality and hyponatremia (ICD-10) Acute confusion ?R41.0 - Disorientation, unspecified (ICD-10) Diabetes ?E11.9 - Type 2 diabetes mellitus without complications (ICD-10) High cholesterol ?E78.00 - Pure hypercholesterolemia, unspecified (ICD-10) Atrial fibrillation ?I48.91 - Unspecified atrial fibrillation (ICD-10) Surgical History Hx of carpal tunnel repair ?Z98.890 - Other specified postprocedural states (ICD-10) Family History Father Family history of myocardial infarction Family history of hypertension Mother Family history of cancer Family history of diabetes mellitus Social History (Updated 06/12/25 @ 22:04 by Edda Yap RN) Within the past year, how often did you have a drink containing alcohol: 2-4 times a month Smoking status: Never smoker Second hand tobacco smoke exposure: No Non-prescribed substance use: denies use Known occupational exposures/hazards: No Highest level of school completed/degree received: high school graduate Are you now , , , , never or living with a partner: Little interest or pleasure in doing things: not at all Feeling down, depressed, or hopeless: not at all Feel stressed/tense/nervous/anxious/difficulty sleeping: not at all Gender Identity: male Gender Identity Comment: Unable to assess due to AMS, Expressive aphasia. Exam Narrative Exam Narrative: CONSTITUTIONAL: Patient appears toxic, intermittently answers questions follows commands. SKIN: Was warm and dry. EYES: PERRLA, no scleral icterus or conjunctival pallor EARS, NOSE, THROAT: Neck was supple. There was no jugular venous distention. RESPIRATORY: Clear to auscultation bilaterally, no wheezes, crackles, or stridor, no use of accessory muscles CARDIOVASCULAR: Tachycardic rate and irregularly irregular rhythm. There is no S3, S4, murmur, rub. Radial and dorsalis pedis pulses are 2+ and symmetrical. GASTROINTESTINAL: Tenderness to palpation in the left lower quadrant. Voluntary guarding. Nondistended. No left upper quadrant tenderness. MUSCULOSKELETAL: There was no lower extremity edema, erythema, or tenderness. NEUROLOGIC: Patient is awake and alert. Moves all extremity spontaneously. Facies were symmetrical. Constitutional Vital Signs, click to edit/add: Last Vital Signs Temp 99 F 07/19/25 13:56 Pulse 99 H 07/19/25 15:41 Resp 20 07/19/25 14:44 BP 111/68 07/19/25 15:41 Pulse Ox 98 07/19/25 13:16 O2 Del Method Room Air 07/19/25 11:30 Course Vital Signs Vital signs: Vital Signs Temperature 104.7 F H 07/19/25 11:30 Pulse Rate 100 H 07/19/25 11:30 Respiratory Rate 18 07/19/25 11:30 Blood Pressure 134/88 07/19/25 11:30 Pulse Oximetry 96 07/19/25 11:30 Oxygen Delivery Method Room Air 07/19/25 11:30 Temperature 99 F 07/19/25 13:56 Pulse Rate 99 H 07/19/25 15:41 Respiratory Rate 20 07/19/25 14:44 Blood Pressure 111/68 07/19/25 15:41 Pulse Oximetry 98 07/19/25 13:16 Oxygen Delivery Method Room Air 07/19/25 11:30 Medical Decision Making MDM Narrative Medical decision making narrative: Patient is a 85-year-old male, history significant for prior CVA and on Eliquis for A-fib, presenting to the emergency department for 24-hour history of abdominal pain and altered mental status. On arrival to the ED, patient appeared toxic and was intermittently answering questions/following commands. Patient was placed on the senior commissary agent which demonstrated atrial fibrillation with RVR. He was febrile with a temperature of 104 ?F. His exam was notable for generalized tenderness palpation throughout the abdomen. Differential diagnoses include sepsis secondary to UTI, pneumonia, or intra-abdominal infections. An IV is established and laboratory studies are obtained to rule out underlying electrolyte/metabolic derangement. Other considerations include intracranial hemorrhage, therefore CT head was ordered. He was given a 30 cc/kg bolus of normal saline. Lactic acid and blood cultures were sent off. Laboratory studies were unremarkable. No significant electrolyte or metabolic derangement. No evidence of acute kidney injury. No anemia, leukocytosis, or thrombocytopenia. No transaminitis or hyperbilirubinemia. Urinalysis was unremarkable. Troponin not elevated. No lactic acidosis. Flu and COVID swabs negative. 12 Lead EKG: Atrial fibrillation in a controlled ventricular response 110. Normal axis. No ST segment elevations. QRS, OK, and QTc interval within normal limits. Final impression: A-fib with controlled ventricular response. No evidence of acute myocardial ischemia CT of the chest/abdomen/pelvis independent reviewed and interpreted by myself radiology demonstrated uncomplicated sigmoid diverticulitis. 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 The patient was started on IV Cipro and IV Flagyl for treatment of diverticulitis. Unclear as to the exact chronicity or etiology of the patient's splenic infarct seen on CT. This may be an incidental finding. He does have a history of atrial fibrillation on Eliquis, making an acute embolic event less likely. I discussed the patient with general surgery, Dr. Santillan, who recommended transfer to [facility] for further evaluation and treatment. I discussed the patient with hospitalist, Dr. Cervantes, who accepted the patient to his service. He recommended coverage for possible endocarditis with IV vancomycin, which was started here in the ED prior to transfer. Patient be transferred via BLS. At the time of transfer, the patient has normal vital signs and is afebrile. He appears more awake, alert, and overall significantly improved since ED arrival. FINAL IMPRESSION: #Acute uncomplicated diverticulitis #Splenic infarct of undetermined chronicity DISPOSITION: Transferred to [facility] CONDITION: Fair Medical Records Medical records reviewed: Yes I reviewed the patient's medical records Lab Data Lab results reviewed: Yes I reviewed the patient's lab results Labs: Lab Results 07/19/25 07/19/25 07/19/25 Range/Units 11:42 11:46 12:13 WBC 8.1 (4.0-11.0) 10^3/uL RBC 4.27 L (4.70-6.10) 10^6/uL Hgb 13.3 L (14.0-18.0) g/dL Hct 38.3 L (42.0-54.0) % MCV 89.7 (80.0-94.0) fL MCH 31.1 (25.9-34.0) pg MCHC 34.7 (29.9-35.2) g/dL RDW 13.1 (11.0-15.0) % Plt Count 156 (150-450) 10^3/uL MPV 10.9 (9.5-13.5) fL Neut % (Auto) 83.4 H (43.0-75.0) % Lymph % (Auto) 10.5 L (20.5-60.0) % Emmet % (Auto) 5.0 (1.7-12.0) % Eos % (Auto) 0.5 L (0.9-7.0) % Baso % (Auto) 0.4 (0.2-2.0) % Neut # (Auto) 6.8 H (1.4-6.5) 10^3/uL Lymph # (Auto) 0.9 L (1.2-3.8) 10^3/uL Emmet # (Auto) 0.4 (0.3-0.8) 10^3/uL Eos # (Auto) 0.0 (0.0-0.7) 10^3/uL Baso # (Auto) 0.0 (0.0-0.1) 10^3/uL Abs Immat Gran (auto) 0.02 (0.00-0.03) 10^3/uL Imm/Tot Granulo (auto) 0.2 (0.0-0.5) % Sodium 132 L (136-145) mmol/L Potassium 4.5 (3.5-5.1) mmol/L Chloride 98 (98-107) mmol/L Carbon Dioxide 26.5 (21.0-32.0) mmol/L Anion Gap 12.0 BUN 18.0 (7.0-18.0) mg/dL Creatinine 0.86 (0.70-1.30) mg/dL Est GFR ( Amer) >60 (>=60 mL/min/1.73m^2) Est GFR (Non-Af Amer) >60 (>=60 mL/min/1.73m^2) BUN/Creatinine Ratio 20.9 Glucose 94 (74-106) mg/dL Lactate 2.0 (0.4-2.0) mmol/L Calcium 8.8 (8.5-10.1) mg/dL Total Bilirubin 1.1 H (0.2-1.0) mg/dL AST 25 (15-37) U/L ALT 29 (16-63) U/L Alkaline Phosphatase 97 (46-116) U/L Troponin I High Sens 9.9 (4.0-76.1) pg/mL Total Protein 6.8 (6.4-8.2) g/dL Albumin 3.7 (3.4-5.0) g/dL Globulin 3.1 g/dL Albumin/Globulin Ratio 1.2 Lipase 24.0 (16.0-77.0) U/L Urine Color Lt. yellow (YELLOW) Urine Clarity Clear (CLEAR) Urine pH 7.0 (5.0-9.0) Ur Specific [place] 1.015 (1.005-1.025) Urine Protein Negative (NEG/TRACE) mg/dL Urine Glucose (UA) Negative (NEGATIVE) mg/dL Urine Ketones Negative (NEGATIVE) mg/dL Urine Occult Blood Negative (NEGATIVE) Urine Nitrite Negative (NEGATIVE) Urine Bilirubin Negative (NEGATIVE) Urine Urobilinogen 0.2 (0.2-1.0) EU/dL Ur Leukocyte Esterase Negative (NEGATIVE) Urine RBC 0-2 (0-2) #/HPF Urine WBC None seen (NONE SEEN) #/HPF Ur Squamous Epith Cells Rare (NONE/RARE) #/LPF Urine Crystals None seen (None Seen) #/HPF Urine Bacteria None seen (NONE SEEN) #/HPF Urine Casts None seen (NONE SEEN) #/LPF Urine Mucus None seen (NONE SEEN) Ur Culture Indicated? No Influenza Type A Ag Negative Influenza Type B Ag Negative SARS-CoV-2 Ag (CV2AG) Negative (NEGATIVE) Imaging Data CT scan - abdomen: Attestation: I personally reviewed and interpreted this imaging study as follows: Radiologist's impression: ITS Impressions Chest X-Ray 07/19/25 11:39 IMPRESSION: NO ACUTE CARDIOPULMONARY ABNORMALITY. Impression dictated by: Connie Reinoso M.D. 07/19/2025 12:57 PM Dictation Location: [place] [address] Electronically authenticated by: [id number] Y Date: 07/19/2025 12:[address] 07/19/25 11:41 IMPRESSION: ATROPHY AND CHRONIC MICROVASCULAR CHANGES. NO ACUTE INTRACRANIAL ABNORMALITY. Impression dictated by: Connie Reinoso M.D. 07/19/2025 1:04 PM Dictation Location: [place] Electronically authenticated by: [id number] Y Date: 07/19/2025 13:04 Abdomen/Pelvis CT 07/19/25 13:06 IMPRESSION: 1. CT evidence of nonperforated sigmoid diverticulitis. No obstruction. 2. Questionable cholelithiasis. 3. Trace right pleural effusion. 4. Right inguinal hernia. 5. Small hiatal hernia. Impression dictated by: Dariel Gooden Jr., D.O. 07/19/2025 2:10 PM Dictation Location: [id number] Electronically authenticated by: [id number] Y Date: 07/19/2025 14:10 ADDENDUM: 07/19/25 1437 IMPRESSION: 1. CT evidence of nonperforated sigmoid diverticulitis. No obstruction. 2. Questionable cholelithiasis. 3. Trace right pleural effusion. 4. Right inguinal hernia. 5. Small hiatal hernia. Impression dictated by: Rafa Lira Jr..Tres 07/19/2025 2:10 PM Dictation Location: [id number] Electronically authenticated by: [id number] Y Date: 07/19/2025 14:[address] 07/19/25 13:06 IMPRESSION: There is linear hypoattenuation within the spleen with adjacent edema. This may represent a splenic infarct with accompanying edema. Underlying possibilities would include high-grade splenic injury. Correlation with history of recent trauma is also recommended. There is a small right-sided pleural effusion. Dependent atelectasis is noted in the lung bases. There is no evidence of pulmonary embolus. Impression dictated by: Antelmo Sinha M.D. 07/19/2025 1:59 PM Dictation Location: [facility] Electronically authenticated by: [id number] Y Date: 07/19/2025 13:59 ECG Data Attestation: I personally reviewed and interpreted this ECG as follows: Discharge Plan Discharge Chief Complaint: Altered Mental Status Clinical Impression: Diverticulitis, Infarction of spleen Patient Disposition: [facility] Time of Disposition Decision: 15:53 Discharge Location: [facility] Condition: Fair Mode of Transportation: EMS
[2025-07-19] MEDS: VANCOMYCIN HCL 1,000 MG in 0.9 % SODIUM CHLORIDE 250 ML 250 MG IV (16:53)
== END 2025-07-19 17:33 | disposition short-term general hospital (02) ==
PROVIDERS: Emergency Provider Student in an Organized Health Care Education/Training Program; PCP Nurse Practitioner Family
DX: K57.32 Diverticulitis of large intestine without perforation or abscess without bleeding (principal); D73.5 Infarction of spleen; K44.9 Diaphragmatic hernia without obstruction or gangrene; K40.90 Unilateral inguinal hernia, without obstruction or gangrene, not specified as recurrent; Z79.01 Long term (current) use of anticoagulants; I48.91 Unspecified atrial fibrillation; R41.82 Altered mental status, unspecified; R47.01 Aphasia; R50.9 Fever, unspecified; Z86.73 Personal history of transient ischemic attack (TIA), and cerebral infarction without residual deficits
CPT/HCPCS: 36415; 70450; 71046; 71260; 74177; 80053; 81001; 83605; 83690; 84484; 85025; 85652; 86140; 87040; 87804; 87811; 93005; 96361; 96365; 96367; 99285; J0744; J1836; J3373; Q9967

== ENCOUNTER 2025-07-30 07:04 | Inpatient (IN) | payer MEDICARE, SELFPAY ==
--- OUTSIDE RECORDS SUMMARY | 2025-07-23 09:52 | XMS_ITS | Continuity of Care Document ---
Author Organization [facility] Address [address] [place] [address] Phone Care Team Providers Care Recording Studio Internship Name Role Phone Britt Mcneill [facility] Primary Care Provider + Thalia Cervantes MD Admit Provider Thalia Cervantes MD Other Provider Dev Archuleta DO Other Provider [phone] Dairen Gordillo MD Other Provider Win Santillan DO Other Provider Jack Dee MD Attending Provider [phone] Jack Dee MD Other Provider Care Teams Patient Care Team Team Status: Active Member Role Status Dates Britt Mcneill [facility] Primary Care Provider Active Patient Care Team Team Status: Active Member Role Status Dates Britt Mcneill [facility] Primary Care Provider Active Start: July 19, 2025 Thalia Cervantes MD Admit Provider Active Start: S eptemblinda 2024 Thalia Cervantes MD Other Provider Active Start: S eptehumphrey 2024 Dev Archuleta DO Other Provider Active Sta rt: July 19, 2025 Darien Gordillo MD Other Provider Active Start: July 19, 2025 Win Santillan DO Other Provider Active Start: Se pt2024 Jack Dee MD Attending Provider Active Sta rt: July 19, 2025 Jack Dee MD Other Provider Active Start: July 19, 2025 Zechariah Crews MD Other Provider Active Start: July 19, 2025 End: July 23, 2025 Varsha Dela Cruz MD Other Provider Active Start: Se pt2024 End: July 23, 2025 Chau Márquez MD Other Provider Active Start: July 19, 2025 End: July 23, 2025 Nixon Bee MD Other Provider Active Start : July 19, 2025 End: July 23, 2025 Rajan Aggarwal MD Other Provider Active S tart: July 19, 2025 End: July 23, 2025 Silvestre Luis MD Other Provider Active Start: July 19, 2025 End: July 23, 2025 CINDI Sagastume Other Provider Active Star t: July 19, 2025 End: July 23, 2025 SANTI Moncada Other Provider Active Sta rt: July 19, 2025 End: July 23, 2025 Chief Complaint and Reason for Visit Chief Complaint Admit Date Diverticulitis R/O Infarction July 19, 2025 6:22pm Reason for Visit Admit Date Abnormal urinary tract, radiological Sep tem2024 6:22pm BPH w urinary obs/LUTS July 19 6:22pm Diverticulitis July 19, 2025 6:22pm Lower abdominal pain July 19, 2025 6:22pm Reducible right inguinal hernia Septembe r 2024 6:22pm Sepsis July 19, 2025 6:22pm Spleen hematoma July 19, 2025 6:22pm 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 Please call the office if you have not heard from them by the next business day. As needed You have b een scheduled for a follow up appointment for the following date and time, please call to reschedule if needed. Allergies, Adverse Reactions, Alerts Allergen Type Severity Reaction Last Updated Verified Status No Known Allergies Allergy Unknown 2024 8:29pm Yes Active Social History Smoking Status Status Start Date End Date Date of Observa tion Never smoked tobacco (finding) July 22, 2025 1:26pm Observation Status Observation Response Date of Response Legal Sex Male (finding) Sex Assigned At Male 1940 Social History Assessments Assessment Value Date Recorded SD[facility] Follow up July 22 1:51pm Question Answer Date Recorded Has the SDNY screening changed since admission? N July 22, 2025 1:51pm Family History Relationship Condition Age at Onset Recorded Date/T siri father Unknown family member Unknown mother Unknown Problems Active Problems Medical Problem Onset Date Status Spleen hematoma Unknown Active Diverticulitis Unknown Active BPH w urinary obs/LUTS Unknown Active Reducible right inguinal hernia Unknown Active Sepsis Unknown Active Lower abdominal pain Unknown Active Splenic infarct Unknown Active Abnormal urinary tract, radiological Unknown Active Medications Medication Status Dose Units Route Directions Qty Days St art Date Stop Date End Date Instructions Adherence Aspirin 81 mg tablet,maritza yed release (DR/EC) Active 81 MG PO Daily 2024 12:00a m Complies with drug therapy Apixaban (Eliquis) 5 mg tablet Active 5 MG PO Daily 2024 12:00a m Complies with drug therapy Pravastatin 40 mg tablet Active 40 MG PO Daily 2024 12:00a m Complies with drug therapy Atenolol 25 mg tablet Active 12.5 MG PO Daily 2024 12:00a m Complies with drug therapy Levothyroxi ne 25 mcg tablet Active 25 MCG PO Daily 2024 12:00a m Complies with drug therapy Meloxicam 7.5 mg tablet Active 7.5 MG PO Daily 2024 12:00a m Complies with drug therapy Gabapentin 300 mg capsule Active 300 MG PO Daily 2024 12:00a m Complies with drug therapy Glimepiride 2 mg tablet Active 2 MG PO Daily 2024 12:00a m Complies with drug therapy Sodium Chloride 1,000 mg tablet,solu ble Active 1000 MG PO Twice daily 2024 12:00a m Complies with drug therapy Finasteride 5 mg tablet Active 5 MG PO Daily 2024 12:00a m Complies with drug therapy Urea (Ure-Na) 15 gram powder in packet Active 1 PACKET PO Daily 2024 12:00a m Complies with drug therapy Amoxicillin -Pot Clavulanate 500-125 mg Tablet Active 1 TAB PO Three times daily 30 10 2024 12:00a m Unknown Immunizations Immunization Event Date Not Given Reason Dose Number Charge Auditor Lot Number Vaccine Information Statement (VIS) Detail Administration Location Influenza vaccine, quadrivalent, adjuvanted August 19, 2023 Pneumococcal Conjugate Vaccine, 13 valent March 31, 2015 Pneumococcal Conjugate Vaccine, 20 valent September 21, 2023 Trivalent Influenza Vaccine August 14, 2022 Vital Signs Vital Reading Result Reference Range Collection Date/Time Height 71 [in_i] July 22, 2025 12:49pm Weight 75.50 kg July 23, 2025 6:00am Body Temperature 98.3 [degF] 97.6-99.0 July 232024 1:28pm Heart Rate 65 /min 60-100 July 23, 2025 1:28pm Respiratory rate 18 /min 12-24 July 232024 1:28pm Oxygen saturation by Pulse oximetry 98 % 95-100 July 23, 2025 1:28pm BP Systolic 140 mm[Hg] 100-140 July 23, 2025 1:28pm BP Diastolic 65 mm[Hg] 60-100 July 23, 2025 1:28pm Advance Directives Advance Directive Response Recorded Date/ Time Advance Directives No June 16 023 2:41pm Insurance Providers Guarantor Dariel Aguilera Address [address] [place] [phone] Contact Info. Home Phone: Payer Policy Id Subscriber's Name Subscriber Id Effectiv e Date Expiration Date [employer] [facility] PF [id number] Dariel Aguilera [id number] Encounters Encounter Location(s) Arrival/Admit Date Discharge/Depart Date Provider(s) Non-patient / Non-visit -[facility] July 19, 2025 6:22pm Jack Dee MD Recent Diagnosis Onset Date Admit Date Abnormal urinary tract, radiological Unknown July 19, 2025 6:22pm BPH w urinary obs/LUTS Unknown July 19, 2025 6:22pm Diverticulitis Unknown July 19, 025 6:22pm Lower abdominal pain Unknown July 192024 6:22pm Reducible right inguinal hernia Unknown July 19, 2025 6:22pm Sepsis Unknown July 19, 025 6:22pm Spleen hematoma Unknown July 19, 025 6:22pm Splenic infarct Unknown July 19, 025 6:22pm Assessments Diagnosis Onset Date Resolution Status Admit Date Abnormal urinary tract, radiological acute July 19 025 6:22pm BPH w urinary obs/LUTS acute Se pt2024 6:22pm Diverticulitis acute July 19, 2025 6:22pm Lower abdominal pain acute Sept emb2024 6:22pm Reducible right inguinal hernia acut e July 19, 2025 6:22pm Sepsis acute July 19, 2025 6:22pm Spleen hematoma acute July 19, 2025 6:22pm Splenic infarct acute July 19, 2025 6:22pm Plan of Treatment Future Tests Future scheduled test information is unavailable Pending Tests Pending diagnostic test information is unavailable Future Visits Future appointment information is unavailable Referrals to Other Providers Reason for Referral Referral Start Date Provider Provider Contact Information Provider Address The office is aware of your hospital stay and need for follow up, the office will call you to schedule. Please call the office if you have not heard from them by the next day. Rashel Barron MD Email: [email or web address] Phone: [address] [facility] [address] As needed Win Santillan DO Work Phone: [phone] [facility] [address] [facility] [address] You have been scheduled for a follow up appointment for the following date and time, please call to reschedule if needed. GRETCHEN Mao- Work Phone: [address] [facility] [address] Future Procedures Procedure Name Ordered Date Scheduled Date Initiate Home Health July 23, 2025 10:20am Diet Supplement July 20, 2025 7:23am Septe mber 2024 7:23am Admit Status Order July 19, 2025 7:03pm Se pt2024 7:03pm Code Status July 19, 2025 6:59pm Septe mber 2024 6:59pm Discharge Order July 23, 2025 10:33am Sept ember 2024 10:33am Consult to General Surgery July 20, 2025 6 :50am July 20, 2025 6:50am Consult to Infectious Diseases July 19, 2025 6:59pm July 19, 2025 7:01pm Consult to Urology July 22, 2025 8:47am Se pt2024 8:47am Future Medications Future medication information is unavailable Patient Instructions Instruction Admit Date Low-fiber diet Know your Meds July 19, 2025 6:22pm Hospital Discharge Instructions Ambulatory Orders* Initiate Home Health Time Frame: 07/23/25, Location: Determined By Patient Additional Instructions Home health to manage: -RN/PT/OT to eval and treat -Monitor VS per protocol -Fall precautions -Perform GI and genitourinary assessments -Assist with medication management and education -Monitor for increased signs of infection -Dietitian recommendations: *Magic cup, 1 container, three times daily with meals You need to see an urologist for findings on your CT scan from your prostate You will need to see your PCP in the next few days
[2025-07-30] VITALS (29 sets, daily range): BP systolic 97–136; BP diastolic 53–78; PULSE 59–82; TEMP 36.3–37; O2SAT 88–99; BMI 27.4; BMI 24.1
--- NOTE | 2025-07-30 07:15 | ED.GENADUL1 ---
HPI HPI - General Adult General Chief complaint: Altered Mental Status Stated complaint: ALTERED MENTAL Time Seen by Provider: 07/30/25 07:12 Source: caregiver Mode of arrival: ambulance Limitations: altered mental status History of Present Illness HPI narrative: The patient is a 85-year-old male who have a significant past medical history of multiple presentation for hyponatremia in addition to also history of stroke and history of A-fib. Patient brought to us by the EMS after his noted that for the last 2 days he has been slowing down according to her, he has not been acting himself as he is very slow to move and he is not having a good appetite since yesterday The patient at the bedside is not complaining of any pain. He does look tired but he is awake oriented x 1 Related Data Home Medications ?Medication ?Instructions ?Recorded ?Confirmed glimepiride 2 mg tablet 2 mg PO DAILY 08/21/23 07/19/25 levothyroxine 25 mcg tablet 25 mcg PO QAM 08/21/23 07/19/25 pravastatin 40 mg tablet 40 mg PO DAILY 08/21/23 07/19/25 tamsulosin 0.4 mg capsule 0.4 mg PO DAILY 08/21/23 07/19/25 finasteride 5 mg tablet 5 mg PO DAILY 11/13/23 07/19/25 gabapentin 300 mg capsule 300 mg PO DAILY 08/13/24 07/19/25 atenolol 25 mg tablet 12.5 mg PO DAILY 06/13/25 07/19/25 apixaban 5 mg tablet (Eliquis) 5 mg PO Q12H 07/19/25 07/19/25 meloxicam 7.5 mg tablet 7.5 mg PO DAILY 07/19/25 07/19/25 sodium chloride 1,000 mg soluble 1,000 mg PO BID 07/19/25 07/19/25 tablet Previous Rx's ?Medication ?Instructions ?Recorded aspirin 81 mg tablet,delayed 81 mg PO QD 5 days #5 tabs 06/13/25 release Allergies Allergy/AdvReac Type Severity Reaction Status Date / Time No Known Drug Allergies Allergy Verified 07/30/25 07:12 Opioid HPI Opioid Management Most Recent Opioid Data: Last Pain Scale 0 06/13/25, 09:05 Last Pain Intensity 0 06/13/25, 09:05 Last ORT Total Score 0 06/12/25, 21:27 Last ORT Risk Category Low Risk 06/12/25, 21:27 Ur Phencyclidine Scrn, (NEGATIVE) Negative 08/21/23, 03:22 Review of Systems ROS Status of ROS 10 or more systems reviewed and unremarkable except as noted in history and below [facility] Medical History (Updated 07/30/25 @ 09:38 by Reina Funk MD) Diverticulitis ?K57.92 - Diverticulitis of intestine, part unspecified, without perforation or abscess without bleeding (ICD-10) Adult hypothyroidism ?E03.9 - Hypothyroidism, unspecified (ICD-10) Hyponatremia ?E87.1 - Hypo-osmolality and hyponatremia (ICD-10) Paroxysmal atrial fibrillation ?I48.0 - Paroxysmal atrial fibrillation (ICD-10) Type 2 diabetes mellitus with hyperglycemia ?E11.65 - Type 2 diabetes mellitus with hyperglycemia (ICD-10) Syncope ?R55 - Syncope and collapse (ICD-10) Abrasion of scalp ?S00.01XA - Abrasion of scalp, initial encounter (ICD-10) Closed head injury ?S09.90XA - Unspecified injury of head, initial encounter (ICD-10) Laceration of scalp ?S01.01XA - Laceration without foreign body of scalp, initial encounter (ICD-10) Low back pain ?M54.50 - Low back pain, unspecified (ICD-10) Lumbar spondylosis ?M47.816 - Spondylosis without myelopathy or radiculopathy, lumbar region (ICD-10) Thoracic back pain ?M54.6 - Pain in thoracic spine (ICD-10) 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 - Other specified mononeuropathies (ICD-10) Paresthesias in right hand ?R20.2 - Paresthesia of skin (ICD-10) Foreign body in right ear ?T16.1XXA - Foreign body in right ear, initial encounter (ICD-10) Hyponatremia ?E87.1 - Hypo-osmolality and hyponatremia (ICD-10) Hypomagnesemia ?E83.42 - Hypomagnesemia (ICD-10) RADHA (acute kidney injury) ?N17.9 - Acute kidney failure, unspecified (ICD-10) Influenza ?J11.1 - Influenza due to unidentified influenza virus with other respiratory manifestations (ICD-10) Hypomagnesemia ?E83.42 - Hypomagnesemia (ICD-10) Acute hyponatremia ?E87.1 - Hypo-osmolality and hyponatremia (ICD-10) Acute confusion ?R41.0 - Disorientation, unspecified (ICD-10) Diabetes ?E11.9 - Type 2 diabetes mellitus without complications (ICD-10) High cholesterol ?E78.00 - Pure hypercholesterolemia, unspecified (ICD-10) Atrial fibrillation ?I48.91 - Unspecified atrial fibrillation (ICD-10) Surgical History Hx of carpal tunnel repair ?Z98.890 - Other specified postprocedural states (ICD-10) Family History Father Family history of myocardial infarction Family history of hypertension Mother Family history of cancer Family history of diabetes mellitus Social History (Updated 06/12/25 @ 22:04 by Edda Yap RN) Within the past year, how often did you have a drink containing alcohol: 2-4 times a month Smoking status: Never smoker Second hand tobacco smoke exposure: No Non-prescribed substance use: denies use Known occupational exposures/hazards: No Highest level of school completed/degree received: high school graduate Are you now , , , , never or living with a partner: Little interest or pleasure in doing things: not at all Feeling down, depressed, or hopeless: not at all Feel stressed/tense/nervous/anxious/difficulty sleeping: not at all Gender Identity: male Gender Identity Comment: Unable to assess due to AMS, Expressive aphasia. Exam Narrative Exam Narrative: Nurses notes and vital signs reviewed and patient is not hypoxic. General: Well-appearing and in no apparent distress. Skin: Warm, dry, no pallor noted. No rash. Head: Normocephalic, atraumatic. Neck: Supple, non-tender. Eye: Pupils are equal, round and EOMI. No scleral icterus. Ears, Nose, Mouth, and Throat: Dry mucous membranes Cardiovascular: Regular Rate and Rhythm without murmur, gallop or rub. Respiratory: No accessory muscle use or respiratory distress. Lungs are clear to auscultation, no wheezing, rales or rhonchi Chest Wall: no tenderness Musculoskeletal: normal ROM, no calf or popliteal tenderness, no lower extremity edema/swelling GI: Abdomen is soft, non-distended. Normal bowel sounds. No masses appreciated. No tenderness to palpation. No rebound, guarding, or rigidity noted. Neurological: A&O x1. No upper or lower extremity weakness and the patient have no cranial nerve pathology detected Constitutional Vital Signs, click to edit/add: Last Vital Signs Temp 98.6 F 07/30/25 07:12 Pulse 73 07/30/25 09:31 Resp 18 07/30/25 09:31 BP 123/76 07/30/25 09:31 Pulse Ox 97 07/30/25 09:10 O2 Del Method Room Air 07/30/25 07:12 Course Vital Signs Vital signs: Vital Signs Pulse Rate 70 07/30/25 07:09 Respiratory Rate 16 07/30/25 07:09 Pulse Oximetry 97 07/30/25 07:09 Temperature 98.6 F 07/30/25 07:12 Pulse Rate 73 07/30/25 09:31 Respiratory Rate 18 07/30/25 09:31 Blood Pressure 123/76 07/30/25 09:31 Pulse Oximetry 97 07/30/25 09:10 Oxygen Delivery Method Room Air 07/30/25 07:12 Medical Decision Making [facility] Narrative Medical decision making narrative: The patient EKG in the ER showing A-fib with a heart rate of [address] elevation or depression Patient CT head is negative for any acute pathology CBC and chemistry shows hyponatremia with sodium 121 the patient had a history of hyponatremia before for which he was admitted and hydrated The mentioned that he has not been having good appetite for the last 24 hours and this could be the reason for the hyponatremia The patient had no abdominal pain on my exam at any time and there is no acute finding at the moment I know he was just discharged from another facility on the ninth after he was admitted there for diverticulitis management and splenic infarct The patient already taking anticoagulation he was initially on Coumadin few months ago but switched to Eliquis Patient case was discussed with after he was started on normal saline 250 cc/h and the patient will be admitted for further management of his hyponatremia Lab Data Labs: Lab Results 07/30/25 Range/Units 07:23 WBC 5.3 (4.0-11.0) 10^3/uL RBC 4.62 L (4.70-6.10) 10^6/uL Hgb 14.7 (14.0-18.0) g/dL Hct 39.4 L (42.0-54.0) % MCV 85.3 (80.0-94.0) fL MCH 31.8 (25.9-34.0) pg MCHC 37.3 H (29.9-35.2) g/dL RDW 12.2 (11.0-15.0) % Plt Count 288 (150-450) 10^3/uL MPV 9.8 (9.5-13.5) fL Neut % (Auto) 57.6 (43.0-75.0) % Lymph % (Auto) 32.7 (20.5-60.0) % [place] % (Auto) 8.3 (1.7-12.0) % Eos % (Auto) 0.6 L (0.9-7.0) % Baso % (Auto) 0.8 (0.2-2.0) % Neut # (Auto) 3.1 (1.4-6.5) 10^3/uL Lymph # (Auto) 1.7 (1.2-3.8) 10^3/uL [place] # (Auto) 0.4 (0.3-0.8) 10^3/uL Eos # (Auto) 0.0 (0.0-0.7) 10^3/uL Baso # (Auto) 0.0 (0.0-0.1) 10^3/uL Abs Immat Gran (auto) 0.00 (0.00-0.03) 10^3/uL Imm/Tot Granulo (auto) 0.0 (0.0-0.5) % PT 11.9 H (9.0-11.6) sec INR 1.14 Sodium 121 L* (136-145) mmol/L Potassium 4.6 (3.5-5.1) mmol/L Chloride 87 L (98-107) mmol/L Carbon Dioxide 25.9 (21.0-32.0) mmol/L Anion Gap 12.7 BUN 20.0 H (7.0-18.0) mg/dL Creatinine 0.81 (0.70-1.30) mg/dL Est GFR ( Amer) >60 (>=60 mL/min/1.73m^2) Est GFR (Non-Af Amer) >60 (>=60 mL/min/1.73m^2) BUN/Creatinine Ratio 24.7 Glucose 121 H (74-106) mg/dL Lactate 1.2 (0.4-2.0) mmol/L Calcium 9.6 (8.5-10.1) mg/dL Magnesium 1.8 (1.8-2.4) mg/dL Total Bilirubin 1.2 H (0.2-1.0) mg/dL AST 24 (15-37) U/L ALT 23 (16-63) U/L Alkaline Phosphatase 88 (46-116) U/L Troponin I High Sens 8.6 (4.0-76.1) pg/mL Total Protein 7.7 (6.4-8.2) g/dL Albumin 4.0 (3.4-5.0) g/dL Globulin 3.7 g/dL Albumin/Globulin Ratio 1.1 Discharge Plan Discharge Chief Complaint: Altered Mental Status Clinical Impression: Hyponatremia, Generalized weakness Patient Disposition: Admitted As Inpatient Time of Disposition Decision: 09:38
--- NOTE | 2025-07-30 07:16 | CT_ITS ---
The [address] [address] Patient Name: INDIANA ZABALA MRN: [id number] date: 1940 Sex: M Assigned Patient Location: ER Current Patient Location: ED.MAIN Accession/Order Number: [id number] Exam Date: 07/30/2025 07:36 Report Date: 07/30/2025 08:37 At the request of: JESSI YAO MD Procedure: CT head/brain wo con CT BRAIN WITHOUT CONTRAST: CLINICAL HISTORY: Altered mental status since yesterday COMPARISON: 07/19/2025 TECHNIQUE: Contiguous axial unenhanced images were obtained through the brain. This CT exam was performed using one or more following dose reduction techniques: Automated exposure control, adjustment of the mA and/or kV according to patient size, or use of iterative reconstruction technique. FINDINGS: There is generalized atrophy. The ventricles are similar in size and position. The basal ganglia calcification. Mild microvascular changes are noted. There are no additional areas of abnormal attenuation. There is no hemorrhage, mass effect or extra-axial collections. The imaged paranasal sinuses and mastoid air cells are clear. There is carotid siphon plaque. CT/CT head/brain wo con IMPRESSION: ATROPHY AND CHRONIC MICROVASCULAR CHANGES. NO ACUTE INTRACRANIAL ABNORMALITY. Impression dictated by: Connie Reinoso M.D. 07/30/2025 8:37 AM Dictation Location: [place] [address] Electronically authenticated by: [id number] Y Date: 07/30/2025 08:37
--- NOTE | 2025-07-30 07:16 | ECG_ITS ---
The [facility] Test Date: 2025-07-30 Pat Name: INDIANA ZABALA Department: Room: - Gender: Male [employer] Project Manager: : 1940 Requested By: [id number] Order Number: [id number] Reading MD: SHIVA DÍAZ M.D. Measurements Intervals [place] Rate: 81 P: -60799 NC: -56953 QRS: 85 QRSD: 88 T: 63 QT: 400 QTc: 437 Interpretive Statements 1210 Atrial fibrillation 9140 abnormal rhythm ECG Compared to ECG 07/19/2025 11:33:55 Ventricular premature complex(es) no longer present Indeterminate axis no longer present Electronically Signed On 07-30-2025 20:11:44 EDT by SHIVA DÍAZ M.D.
--- OUTSIDE RECORDS SUMMARY | 2025-07-30 07:21 | XMS_ITS | Encounter Summary ---
Author Organization [facility] Address [address] [place] [address] Care Team Providers Care Staffing Analyst Name Role Phone Edwin Medina MD Primary Care Provider [phone] Encounter Details Date Type Department Care Team (Late st Contact Info) Description 11/19/2024 Abstract [facility] [address] [place] [address] Jack Alexander DO [address] [place] [address] Social History Tobacco Use Types Packs/Day Years [...] on filedocumented in this encounter Care Teams Staffing Analyst Relationship Specialty Start Date End Date Edwin Medina MD [address] [place] [address] PCP - General Family Medicine 11/26/24 documented as of this encounter
--- OUTSIDE RECORDS SUMMARY | 2025-07-30 07:21 | XMS_ITS | Encounter Summary ---
Author Organization [facility] Address [id number] [address] [place] [address] Care Team Providers Care Division Superintendent Name Role Phone Britt Mcneill Primary Care Provider + Encounter Details Date Type Department Care Team (Late st Contact Info) Description 06/12/2025 Orders Only [facility] [employer] [facility] [place] [address] External, Scanning Provider Pain (Primary [...] pain documented in this encounter Care Teams Division Superintendent Relationship Specialty Start Date End Date Britt Mcneill APRN-CNP [facility] [address] [place] [address] PCP - General Family Medicine 06/13/25 documented as of this encounter
--- OUTSIDE RECORDS SUMMARY | 2025-07-30 07:21 | XMS_ITS | Clinical Summary ---
Author Organization [facility] Healthcare Address [address] [place] [address] Care Team Providers Care Wincher Name Role Phone Edwin Medina MD Primary Care Provider [phone] Allergies No known active allergies Medications atenolol (Tenormin) 25 MG tablet 1 daily Active dabigatran etexilate (Pradaxa) 150 MG capsule Take 1 capsule twice a day by oral route. Active diclofenac sodium (Voltaren) 1 % gel APPLY 1/2 inchTO THE AFFECTED AREA(S) BY TOPICAL ROUTE BID Active finasteride (Proscar) 5 MG tablet 1 daily Active gabapentin (Neurontin) 300 MG capsule Active glimepiride (Amaryl) 2 MG tablet 1 daily Active hydroCHLOROthia zide (HYDRODiuril) 25 MG tablet Take 1 tablet by mouth Daily Active Synthroid 25 MCG tablet 4 Active meloxicam (Mobic) 15 MG tablet Take 1 tablet by mouth Daily Active omeprazole (PriLOSEC) [address] capsule Active pravastatin (Pravachol) 20 MG tablet Active pravastatin (Pravachol) 40 MG tablet 1 daily Active sildenafil (Viagra) 50 MG tablet TAKE 1 TABLET BY MOUTH ONCE DAILY NEEDED FOR INTERCOURSE FOR 14 DAYS Active sodium chloride 1 g tablet Take 1 g by mouth in the morning and 1 g before bedtime. 4 Active tamsulosin (Flomax) 0.4 MG 24 hr capsule 1 daily Active warfarin (Coumadin) 5 MG tablet Active methocarbamol (Robaxin) 750 MG tablet TAKE 1 TABLET BY MOUTH 3 TIMES A DAY NEEDED FOR PAIN 4 Active Active Problems Problem Noted Date Diagnosed Date ASCVD (arteriosclerotic cardiovascular disease) 11/26/2024 Back spasm 11/26/2024 Benign hypertension 11/26/2024 Body mass index (BMI) of 25.0-25.9 in adult 11/14 Benign prostatic hyperplasia 11/26/2024 Carotid artery occlusion 11/26/2024 Diabetes mellitus 11/26/2024 ED (erectile dysfunction) 11/26/2024 Encounter for surveillance of abnormal nevi 11/14 Erectile dysfunction due to arterial insufficien cy 11/26/2024 Fall at home 11/26/2024 Hard of hearing 11/26/2024 Atrial fibrillation 08/22/2014 Generalized osteoarthritis 09/12/2012 Cervical disc disease with myelopathy 2011 Overview (11/26/2024): Dr. Denis Adhikari, [facility] Carpal tunnel syndrome 08/23/2007 Encounters Date Type Department Care Team Description 07/22/2025 External Result Encounter [facility] External Department Unsolicited Win Santillan DO 07/21/2025 External Result Encounter [facility] External Department Unsolicited Win Santillan DO from Last 3 Months Social History Tobacco Use Types Packs/Day Years Used Date Smoking Tobacco: Never Smokeless Tobacco: Never Tobacco Cessation:Counseling Given: Not Answered Sex and Gender Information Value Date Recorded Sex Assigned at Not on file Legal Sex Male 8:42 AM EDT Gender Identity Not on file Sexual Orientation Not on file Last Filed Vital Signs Vital Sign Reading Time Taken Comments Blood Pressure 148/73 11/26/2024 10:27 AM EST Pulse 87 11/26/2024 10:27 AM EST Temperature 36.7 C (98.1 F) 10/03/2024 10:58 AM EST Respiratory Rate - - Oxygen Saturation - - Inhaled Oxygen Concentration - - Weight 77.1 kg (170 lb) 11/26/2024 10:27 AM EST Height 176.5 cm (5' 9.5 ) 10/03/2024 10:58 AM ES T Body Mass Index 24.74 10/03/2024 10:58 AM EST Plan of Treatment Health Maintenance Due Date Last Done Comments Influenza Vaccine (#1) 2025 4, 08/19/2023, 08/14/2022, Additional history exists Pneumococcal Vaccine: 65+ Years Completed 09/21/2023, 06/11/2017, 03/31/2015 Procedures Procedure Name Priority Date/Time Associated Diagnosis Comments CBC WITH AUTO DIFFERENTIAL Routine 07/22/2025 4:45 AM EDT C-REACTIVE PROTEIN Routine 07/21/2025 4 :46 AM EDT from Last 3 Months Results * (ABNORMAL) CBC auto differential (07/22/2025 4:45 AM EDT) WBC 6.9 4.1 - 10.5 [CFU]/mL 07/22/2025 5:07 AM EDT [facility] UNCORRECTED WHITE BLOOD COUNT 6.9 4.1 - 10.5 10*3/uL 07/22/2025 5:07 AM EDT [facility] RBC 3.54(L) 3.90 - 5.60 10*6/uL 07/22/2025 5:07 AM EDT [facility] HEMOGLOBIN 11.2(L) 13.0 - 17.0 g/dL 07/22/2025 5:07 AM EDT [facility] HEMATOCRIT 32.4(L) 38.8 - 50.0 % 07/22/2025 5:07 AM EDT [facility] MCV 91.5 83.5 - 101 fL 07/22/2025 5:07 AM EDT [facility] MCH 31.5 27.5 - 35.2 pg 07/22/2025 5:07 AM EDT [facility] MCHC 34.4 32.5 - 35.6 g/dL 07/22/2025 5:07 AM EDT [facility] RED CELL DISTRIBUTION WIDTH, RDW 13.6 12.0 - 14.8 % 07/22/2025 5:07 AM EDT [facility] PLATELET COUNT 157 150 - 450 10*3/uL 07/22/2025 5:07 AM EDT [facility] MEAN PLATELET VOLUME, MPV 8.8 6.6 - 10.1 fL 07/22/2025 5:07 AM EDT [facility] NEUTROPHILS, % 72.3 . % 07/22/2025 5:07 AM EDT [facility] LYMPHOCYTES, % 16.8 . % 07/22/2025 5:07 AM EDT [facility] MONOCYTE/MACROPHA GE, % 8.3 . % 07/22/2025 5:07 AM EDT [facility] EOSINOPHILS, % 2.2 . % 07/22/2025 5:07 AM EDT [facility] BASOPHILS, % 0.4 . % 07/22/2025 5:07 AM EDT [facility] NRBC 0.1 0 - 0.5 /100{WBC} 07/22/2025 5:07 AM EDT [facility] NEUTROPHILS 5.0 1.8 - 7.7 10*3/uL 07/22/2025 5:07 AM EDT [facility] LYMPHOCYTES 1.2 1.00 - 4.8 10*3/uL 07/22/2025 5:07 AM EDT [facility] MONOCYTES 0.6 0.0 - 0.8 10*3/uL 07/22/2025 5:07 AM EDT [facility] EOSINOPHILS 0.1 0.0 - 0.45 10*3/uL 07/22/2025 5:07 AM EDT [facility] BASOPHILS 0.0 0.0 - 0.2 10*3/uL 07/22/2025 5:07 AM EDT [facility] Blood (Blood) 07/22/2025 4:4 5 AM EDT 07/22/2025 4:55 AM EDT Win Santillan DO LAB BLOOD ORDERABLES [facility] [address] [place] [address], [facility] [address] [place] [address] * (ABNORMAL) C-reactive protein (07/21/2025 4:46 AM EDT) C-REACTIVE PROTEIN 12.1(H) 0.0 - 0.5 mg/dL 07/21/2025 5:14 AM EDT [facility] Other Topography unknown / Unknown 07/21/2025 4:46 AM EDT 07/21/2025 4:49 AM EDT Win Santillan DO LAB BLOOD ORDERABLES [facility] [address] [place] [address], [facility] [address] [place] [address] from Last 3 Months Insurance [employer] MED[employer]ARE [employer]AGE Care Teams Wincher Relationship Specialty Start Date End Date Edwin Medina MD [address] [place] [address] PCP - General Family Medicine 11/26/24
--- OUTSIDE RECORDS SUMMARY | 2025-07-30 07:21 | XMS_ITS | Encounter Summary ---
Author Organization [facility] Address [id number] [address] [place] [address] Care Team Providers Care Quality Coordinator Name Role Phone Britt Mcneill GRID MOLDER-SURGERY AIDE Primary Care Provider + Encounter Details Date Type Department Care Team (Late st Contact Info) Description 06/13/2025 Orders Only [facility] [address] [place] [phone] Transcribe, Orders Support User Pain (Primary Dx) Social History Tobacco Use Types Packs/Day Years Used Date Smoking Tobacco: Never Assessed [facility] Utilities Answer Date Recorded In the past 12 months has e electric, gas, oil, or water company threatened to shut off services in your home? No 06/17/2025 AUDIT-C Answer Date Recorded Q1: How often do you have a drink containing alcohol? Never 06/17/2025 Q2: How many drinks containi ng alcohol do you have on a typical day when you are drinking? Patient does not drink Q3: How often do you have si x or more drinks on one occasion? Never 06/17/2025 PHQ-2 Answer Date Recorded Total Score 1 06/17/2025 PRAPARE - Transportation Answer Date Re corded In the past 12 months, has l ack of transportation kept you from medical appointments or from getting medications? No 02/2025 In the past 12 months, has l ack of transportation kept you from meetings, work, or from getting things needed for daily living? No 06/17/2025 Housing Instability Answer Date Recorde d Are you worried or concerned that in the next two months you may not have stable housing that you own, rent or stay in as a part of a household? No 06/17/2025 Hunger Screening Answer Date Recorded Within the past 12 months we worried whether our food would run out before we got money to buy more. Never True 06/17/2025 Within the past 12 months th e food we bought just didn't last and we didn't have money to get more. Never True 06/17/2025 Sex and Gender Information Value Date Recorded [...] pain documented in this encounter Care Teams Quality Coordinator Relationship Specialty Start Date End Date Britt Mcneill APRN-SURGERY AIDE [address] [place] [address] PCP - General Family Medicine 06/13/25 documented as of this encounter
--- OUTSIDE RECORDS SUMMARY | 2025-07-30 07:21 | XMS_ITS | Clinical Summary ---
Author Organization [facility] Address [address], [address] [place] [address] Care Team Providers Care Crime Investigator Special Agent Name Role Phone Jules Soledad CAT HOOKER - HOOP MACHINE OPERATOR Primary Care Provider [phone] Allergies No known active allergies Medications gabapentin [...] 2 capsules by mouth daily Active lisinopril (PRINIVIL;ZESTR IL) 10 MG tablet Take 1 tablet by [...] 15 g by mouth daily 30 each 07/06/20 Active Problems Problem Noted Date Diagnosed Date [...] myelopathy 2011 Overview (06/02/2025): Dr. Denis Adhikari, [facility] Encounters Date Type Department Care Team Description 07/18/2025 Abstract [facility] [address] [phone] Flaco Alfaro MD 06/19/2025 Abstract [facility] [address] [phone] Flaco Alfaro MD 06/02/2025 10:01 AM EDT - 06/05/2025 6:50 PM EDT Hospital Encounter [facility]- [facility] [address] [place] [address] aJck Monet, Jermaine Anna, Beto Fowler DO Avasthi, Salil, MD Hyponatremia (Primary Dx) Discharge Disposition: Home or Self Care 06/02/2025 Travel 06/02/2025 Direct Admit Orders [facility] [address] [place] [address] Leelee Easley APRN - REFRIGERATING MACHINE OPERATOR from Last 3 Months Social History Tobacco Use Types Packs/Day Years Used Date Smoking Tobacco: Never Smokeless Tobacco: Never Tobacco Cessation:Counseling Given: Not Answered Alcohol Use Standard Drinks/Week Comments Never 0 (1 standard drink = 0.6 oz pur e alcohol) [facility] Utilities Answer Date Recorded In the [...] any time in the past 12 m [facility], were you homeless or living in a senior care (including now)? No 06/02/2025 Food Insecurity Answer [...] 2017 Annual Wellness Visit (Medicare Advantage) 11/14/2024 Flu vaccine (#1) 06/14/2025 09/29/2024, 04/2023, 07/16/2017, Additional history exists COVID-19 Vaccine (3 - 2023- season) 2025 09/29/2024, 08/19/2023 GFR test (Diabetes, CKD 3-4, OR last [...] - 110 mg/dL 06/05/2025 11:48 AM EDT [facility] 06/05/2025 11:4 8 AM EDT 06/05/2025 11:55 AM EDT us Flaco Alfaro MD POINT OF CARE TEST ORDERABLES F inal Result [facility] [address] [place] [address], [facility] [phone] * (ABNORMAL) Electrolyte Panel (06/05/2025 10:43 AM EDT) Only the most recent of6 resultswithin the time period is included. Sodium 127(L) 136 - 145 mmol/L 06/05/2025 10:43 AM EDT [facility] Potassium 4.4 3.7 - 5.3 mmol/L 06/05/2025 10:43 AM EDT [facility] Comment: Specimen hemolysis has exceeded the interference as defined by Sindy. Value may be falsely increased. Suggest recollection if clinically indicated. Chloride 92(L) 98 - 107 mmol/L 06/05/2025 10:43 AM EDT [facility] CO2 19(L) 20 - 31 mmol/L 06/05/2025 10:43 AM EDT [facility] Anion Gap 16 9 - 16 mmol/L 06/05/2025 10:43 AM EDT [facility] Blood BLOOD SPECIMEN / Unknown 06/05/2025 10:43 AM EDT 06/05/2025 2:35 PM EDT us Deann Carter MD CHEMISTRY ORDERABLES Final Resul t Performing Organization Address [facility] de Phone Number [facility] [address] [place] [address] * (ABNORMAL) Protime-INR (06/05/2025 4:49 AM EDT) Only the most recent of4 resultswithin the time period is included. Protime 22.4(H) 11.7 - 14.9 sec 06/05/2025 4:49 AM EDT [facility] INR 1.9 06/05/2025 4:49 AM EDT [facility] Comment: Therapeutic Range: Moderate Anticoagulant Intensity: INR = 2.0-3.0 High Anticoagulant Intensity: INR = 2.5-3.5 Blood BLOOD SPECIMEN / Unknown 06/05/2025 4:49 AM EDT 06/05/2025 4:52 AM EDT us Adore Cueto CAT HOOKER - HOOP MACHINE OPERATOR HEMATOLOGY ORDERABLES Fi nal Result Performing Organization Address [facility] de Phone Number [facility] [address] [place] [address] * (ABNORMAL) Basic Metabolic Panel (06/05/2025 4:49 AM EDT) Sodium 126(L) 136 - 145 mmol/L 06/05/2025 4:49 AM EDT [facility] Potassium 4.5 3.7 - 5.3 mmol/L 06/05/2025 4:49 AM EDT [facility] Comment: Specimen hemolysis has exceeded the interference as defined by Sindy. Value may be falsely increased. Suggest recollection if clinically indicated. Chloride 95(L) 98 - 107 mmol/L 06/05/2025 4:49 AM EDT [facility] CO2 19(L) 20 - 31 mmol/L 06/05/2025 4:49 AM EDT [facility] Anion Gap 12 9 - 16 mmol/L 06/05/2025 4:49 AM EDT [facility] Glucose 112(H) 74 - 99 mg/dL 06/05/2025 4:49 AM EDT [facility] BUN 13 8 - 23 mg/dL 06/05/2025 4:49 AM EDT [facility] Creatinine 0.8 0.7 - 1.2 mg/dL 06/05/2025 4:49 AM EDT [facility] Est, Glom Filt Rate 88 >60 mL/min/1. 73m2 06/05/2025 4:49 AM EDT [facility] Comment: These results are not intended for [...] - 10.4 mg/dL 06/05/2025 4:49 AM EDT [facility] Blood BLOOD SPECIMEN / Unknown 06/05/2025 4:49 AM EDT 06/05/2025 4:52 AM EDT Beto Hedrick CHEMISTRY ORDERABLES Final R esult [facility] [address] [place] [address], [facility] [phone] * (ABNORMAL) Basic Metabolic Panel w/ Reflex to MG (06/04/2025 10:09 AM EDT) Only the most recent of8 resultswithin the time period is included. Sodium 118(LL) 136 - 145 mmol/L 06/04/2025 10:09 AM EDT [facility] Potassium 4.8 3.7 - 5.3 mmol/L 06/04/2025 10:09 AM T [facility] Comment: Specimen hemolysis has exceeded the interference as defined by Sindy. Value may be falsely increased. Suggest recollection if clinically indicated. Chloride 87(L) 98 - 107 mmol/L 06/04/2025 10:09 AM EDT [facility] CO2 21 20 - 31 mmol/L 06/04/2025 10:09 AM EDT [facility] Anion Gap 10 9 - 16 mmol/L 06/04/2025 10:09 AM EDT [facility] Glucose 107(H) 74 - 99 mg/dL 06/04/2025 10:09 AM EDT [facility] BUN 11 8 - 23 mg/dL 06/04/2025 10:09 AM EDT [facility] Creatinine 0.7 0.7 - 1.2 mg/dL 06/04/2025 10:09 AM EDT [facility] Est, Glom Filt Rate >90 >60 mL/min/1. 73m2 06/04/2025 10:09 AM EDT [facility] Comment: These results are not intended for [...] - 10.4 mg/dL 06/04/2025 10:09 AM EDT [facility] Blood BLOOD SPECIMEN / Unknown 06/04/2025 10:09 AM EDT 06/04/2025 10:18 AM EDT us José Good MD CHEMISTRY ORDERABLES Final Resu lt [facility] [address] [phone] * CT HEAD WO CONTRAST (06/04/2025 4:13 [...] Acute right maxillary sinusitis. Bisi Vaughn MD [facility] CT ORDERABLES Final Result * TSH (06/04/2025 3:39 AM EDT) TSH 2.95 0.27 - 4.20 uIU/mL 06/04/2025 3:39 AM EDT [facility] Blood BLOOD SPECIMEN / Unknown 06/04/2025 3:39 AM EDT 06/04/2025 4:16 AM EDT Bisi Vaughn MD CHEMISTRY ORDERABLES Final Resu lt Performing Organization Address [facility] Co de Phone Number [facility] [address] [place] [address], [facility] [phone] * T4, Free (06/04/2025 3:39 AM EDT) Pathologist [facility] T4 Free 1.5 0.92 - 1.68 ng/dL 06/04/2025 3:39 AM EDT [facility] Blood BLOOD SPECIMEN / Unknown 06/04/2025 3:39 AM EDT 06/04/2025 4:16 AM EDT Bisi Vaughn MD CHEMISTRY ORDERABLES Final Resu lt Performing Organization Address [facility] Co de Phone Number [facility] [address] [place] [address], [facility] [phone] * Cortisol Total (06/04/2025 3:39 AM EDT) [facility] Cortisol 11.7 2.5 - 19.5 ug/dL 06/04/2025 3:39 AM EDT [facility] Comment: Cortisol Reference Range: AM 6.0-18.4 PM 2.7-10.5 Blood BLOOD SPECIMEN / Unknown 06/04/2025 3:39 AM EDT 06/04/2025 4:16 AM EDT Bisi Vaughn MD CHEMISTRY ORDERABLES Final Resu lt Performing Organization Address [facility] Co de Phone Number [facility] [address] [place] [address], [facility] [phone] * Lactic Acid, POC (06/04/2025 2:02 AM EDT) [facility] POC Lactic Acid 0.8 0.56 - 1.39 mmol/L 06/04/2025 2:02 AM EDT [facility] 06/04/2025 2:02 AM EDT 06/04/2025 2:05 AM EDT Beto [facility] POINT OF CARE TEST ORDERABLE S Final Result Performing Organization Address [facility] de Phone Number [facility] [address] [place] [address], [facility] [phone] * Creatinine W/GFR Point of Care (06/04/2025 2:02 AM EDT) POC Creatinine 0.7 0.51 - 1.19 mg/dL 06/04/2025 2:02 AM EDT [facility] eGFR, POC >90 >60 mL/min/1. 73m2 06/04/2025 2:02 AM EDT [facility] Comment: These results are not intended for [...] 2:02 AM EDT 06/04/2025 2:05 AM EDT [facility] OF [facility]ARE [facility] ORDERABLE S Final Result Performing Organization Address [facility] de Phone Number [facility] [address] [place] [address], [facility] [phone] * Arterial Blood Gas, POC (06/04/2025 2:02 AM EDT) POC pH 7.412 7.350 - 7.450 06/04/2025 2:02 AM EDT [facility] POC pCO2 38.6 35.0 - 48.0 mm Hg 06/04/2025 2:02 AM EDT [facility] POC PO2 91.7 83.0 - 108.0 mm Hg 06/04/2025 2:02 AM EDT [facility] POC HCO3 24.6 21.0 - 28.0 mmol/L 06/04/2025 2:02 AM EDT [facility] Positive Base Excess, Art 0.1 0.0 - 3.0 mmol/L 06/04/2025 2:02 AM EDT [facility] POC O2 SAT 97.2 94.0 - 98.0 % 06/04/2025 2:02 AM EDT [facility] O2 Delivery Device Room Air 06/04/2025 2:02 AM EDT [facility] Sample Site Right Radial Artery 06/04/2025 2:02 AM EDT [facility] 06/04/2025 2:02 AM EDT 06/04/2025 2:05 AM EDT us Beto Hedrick DO POINT OF CARE TEST ORDERABLE S Final Result Performing Organization Address [facility] [place] [address], [facility] [phone] * CALCIUM, IONIC (POC) (06/04/2025 2:02 AM EDT) Pathologist [facility] POC Ionized Calcium 1.18 1.15 - 1.33 mmol/L 06/04/2025 2:02 AM EDT [facility] 06/04/2025 2:02 AM EDT 06/04/2025 2:05 AM EDT us Beto Hedrick DO CHEMISTRY ORDERABLES Final R esult Performing Organization Address City/[facility]/[place] [address], [facility] [phone] * (ABNORMAL) ELECTROLYTES PLUS (06/04/2025 2:02 AM EDT) POC Sodium 123(L) 138 - 146 mmol/L 06/04/2025 2:02 AM EDT [facility] POC Potassium 3.9 3.5 - 4.5 mmol/L 06/04/2025 2:02 AM EDT [facility] POC Chloride 89(L) 98 - 107 mmol/L 06/04/2025 2:02 AM EDT [facility] POC TCO2 23 22 - 30 mmol/L 06/04/2025 2:02 AM EDT [facility] POC Anion Gap 12 7 - 16 mmol/L 06/04/2025 2:02 AM EDT [facility] 06/04/2025 2:02 AM EDT 06/04/2025 2:05 AM EDT us Beto Hedrick DO CHEMISTRY ORDERABLES Final R esult Performing Organization Address [facility]/[place] [address], [facility] [phone] * POCT urea (BUN) (06/04/2025 2:02 AM EDT) Pathologist [facility] POC BUN 11 8 - 26 mg/dL 06/04/2025 2:02 AM EDT [facility] 06/04/2025 2:02 AM EDT 06/04/2025 2:05 AM EDT us Beto Hedrick DO POINT OF CARE TEST ORDERABLE S Final Result Performing Organization Address [facility] [place] [address], [facility] [phone] * (ABNORMAL) Hemoglobin and hematocrit, blood (06/04/2025 2:02 AM EDT) Pathologist [facility] POC Hemoglobin (calc) 12.3(L) 13.5 - 17.5 g/dL 06/04/2025 2:02 AM EDT [facility] POC Hematocrit 36(L) 41 - 53 % 06/04/2025 2:02 AM EDT [facility] 06/04/2025 2:02 AM EDT 06/04/2025 2:05 AM EDT us Beto Hedrick DO HEMATOLOGY ORDERABLES Final Result Performing Organization Address [facility] [place] [address], [facility] [phone] * POCT Glucose (06/04/2025 2:02 AM EDT) POC Glucose 81 74 - 100 mg/dL 06/04/2025 2:02 AM EDT [facility] 06/04/2025 2:02 AM EDT 06/04/2025 2:05 AM EDT us Beto Hedrick DO POINT OF CARE TEST ORDERABLE S Final Result Performing Organization Address [facility] Co de Phone Number [facility] [address] [place] [address], [facility] [phone] * Sodium, urine, random (06/04/2025 1:00 AM EDT) Sodium, Ur 159 mmol/L 06/04/2025 1:00 AM EDT [facility] Comment:No normal range esta blished. 06/04/2025 1:00 AM EDT 06/04/2025 1:25 AM EDT us Beto Hedrick DO URINE ORDERABLES Final Resul t Performing Organization Address [facility] Phone Number [facility] [address] [place] [address], [facility] [phone] * Osmolality, Urine (06/04/2025 1:00 AM EDT) Osmolality, Ur 590 80 - 1300 mOsm/kg 06/04/2025 1:00 AM EDT [facility] 06/04/2025 1:00 AM EDT 06/04/2025 1:25 AM EDT us Beto Hedrick DO URINE ORDERABLES Final Resul t Performing Organization Address [facility] Phone Number [facility] [address] [place] [address], [facility] [phone] * PREVIOUS SPECIMEN (06/03/2025 6:43 PM EDT) 06/03/2025 6:43 PM EDT 06/03/2025 6:49 PM EDT [facility] CHEMISTRY ORDERABLES Final R esult Performing Organization Address City/[facility]/ZIP Co [place] [address], [facility] [phone] * (ABNORMAL) Osmolality (06/03/2025 6:43 PM EDT) Pathologist [facility] Serum Osmolality 251(L) 275 - 295 mOsm/kg 06/03/2025 6:43 PM EDT [facility] 06/03/2025 6:43 PM EDT 06/03/2025 7:00 PM EDT [facility] CHEMISTRY ORDERABLES [facility] Performing Organization Address [facility] Co [place] [address], [facility] [phone] * (ABNORMAL) CBC with Auto Differential (06/03/2025 6:18 AM EDT) Only the most recent of2 resultswithin the time period is included. Pathologist [facility] WBC 7.2 3.5 - 11.3 k/uL 06/03/2025 6:18 AM EDT [facility] RBC 3.98(L) 4.21 - 5.77 m/uL 06/03/2025 6:18 AM EDT [facility] Hemoglobin 12.3(L) 13.0 - 17.0 g/dL 06/03/2025 6:18 AM EDT [facility] Hematocrit 35.2(L) 40.7 - 50.3 % 06/03/2025 6:18 AM EDT [facility] MCV 88.4 82.6 - 102.9 fL 06/03/2025 6:18 AM EDT [facility] MCH 30.9 25.2 - 33.5 pg 06/03/2025 6:18 AM EDT [facility] MCHC 34.9(H) 28.4 - 34.8 g/dL 06/03/2025 6:18 AM EDT [facility] RDW 13.0 11.8 - 14.4 % 06/03/2025 6:18 AM EDT [facility] Platelets See Reflexed IPF Result 138 - 453 k/uL 06/03/2025 6:18 AM EDT [facility] Platelet, Fluorescence 132(L) 138 - 453 k/uL 06/03/2025 6:18 AM EDT [facility] Platelet, Immature Fraction 5.3 1.1 - 10.3 % 06/03/2025 6:18 AM EDT [facility] NRBC Automated 0.0 0.0 per 100 WBC 06/03/2025 6:18 AM EDT [facility] Neutrophils % 64 36 - 65 % 06/03/2025 6:18 AM EDT [facility] Lymphocytes % 23(L) 24 - 43 % 06/03/2025 6:18 AM EDT [facility] Monocytes % 11 3 - 12 % 06/03/2025 6:18 AM EDT [facility] Eosinophils % 1 1 - 4 % 06/03/2025 6:18 AM EDT [facility] Basophils % 1 0 - 2 % 06/03/2025 6:18 AM EDT [facility] Immature Granulocytes % 0 0 % 06/03/2025 6:18 AM EDT [facility] Neutrophils Absolute 4.63 1.50 - 8.10 k/uL 06/03/2025 6:18 AM EDT [facility] Lymphocytes Absolute 1.68 1.10 - 3.70 k/uL 06/03/2025 6:18 AM EDT [facility] Monocytes Absolute 0.80 0.10 - 1.20 k/uL 06/03/2025 6:18 AM EDT [facility] Eosinophils Absolute 0.08 0.00 - 0.44 k/uL 06/03/2025 6:18 AM EDT [facility] Basophils Absolute 0.04 0.00 - 0.20 k/uL 06/03/2025 6:18 AM EDT [facility] Immature Granulocytes Absolute <0.03 0.00 - 0.30 k/uL 06/03/2025 6:18 AM EDT [facility] Blood BLOOD SPECIMEN / Unknown 06/03/2025 6:18 AM EDT 06/03/2025 6:46 AM EDT us Adore Miester CAT HOOKER - HOOP MACHINE OPERATOR HEMATOLOGY ORDERABLES Fi nal Result [facility] [address] [place] [address], [facility] [phone] from Last 3 Months Insurance [facility] MEDICARE [facility] MEDIC[facility] Advance Directives * Full Code (Latest Code Status on File) Date Activated Date Inactivated Comments 06/02/2025 12:05 PM 06/05/2025 9:24 PM Care Teams Crime Investigator Special Agent Relationship Specialty Start Date End Date Soledad Vicente APRN - CHRISTOPHER [address] [place] [place] [phone] PCP - General 06/05/25
--- OUTSIDE RECORDS SUMMARY | 2025-07-30 07:21 | XMS_ITS | Encounter Summary ---
Author Organization [facility] Address [id number] [address] [place] [address] Care Team Providers Care Key Sander Name Role Phone Britt Mcneill [employer] REPRESENTATIVE-LEASING COORDINATOR Primary Care Provider + Encounter Details Date Type Department Care Team (Late st Contact Info) Description 06/20/2025 Orders Only [facility] [address] [place] [phone] Transcribe, Orders Support User Pain (Primary Dx) Social History Tobacco Use Types Packs/Day Years Used Date Smoking Tobacco: Never Smokeless Tobacco: Never Alcohol Use Standard Drinks/Week Comments Not Currently 0 (1 standard drink = 0.6 oz pur e alcohol) [facility] Utilities Answer Date Recorded In the [...] got money to buy more. Never True 06/18/2025 Within the past 12 months th e food we bought just didn't last and we didn't have money to get more. Never True 06/18/2025 Sex and Gender Information Value Date Recorded Sex Assigned at Not on file Legal Sex Male 1:53 AM EDT Gender Identity Not on file Sexual Orientation Not on file documented as of this encounter Mental Status * Question Answer Entry Date Author Overall Cognitive Status X 06/21/2025 8:57 AM EDT Dana Campos PT documented in this encounter Plan of Treatment Not on file documented as of this encounter Goals Goal Patient Goal Type Associated Problems Recent Progress Patient-Stated? Author Autogenerated Goal General No DayDawson RN <enter goal here> General Yes Dawson Yost RN Note: Evaluation of progress towards goal: Home with [facility] documented as of this encounter Results * CT angiogram carotid (06/17/2025 1:00 PM EDT) us Scanning Provider External IMG CT ORDERABLES Fin al Result * CT angiogram head (06/17/2025 12:55 PM EDT) us Scanning Provider External IMG CT ORDERABLES Fin al Result * CT brain without contrast stroke alert (06/17/2025 11:35 AM EDT) us Scanning Provider External IMG CT ORDERABLES Fin al Result * Non [facility] Echo (06/13/2025 11:05 AM EDT) us Scanning Provider External CV ECHO ORDERABLES Fi nal Result XCELERA * CT angiogram head (06/12/2025 7:35 PM EDT) us Scanning Provider External IMG CT ORDERABLES Fin al Result * CT angiogram carotid (06/12/2025 7:30 PM EDT) us Scanning Provider External IMG CT ORDERABLES Fin al Result * X-ray chest 1 view (06/12/2025 6:25 PM EDT) us Scanning Provider External IMG DIAGNOSTIC IMAGIN G ORDERABLES Final Result documented in this encounter Visit Diagnoses Diagnosis Pain- Primary Generalized pain documented in this encounter Additional Health Concerns Assessment Noted Time PHQ-9 Depression Total Score: 1 06/17/20 25 4:55 PM EDT documented as of this encounter Care Teams Key Sander Relationship Specialty Start Date End Date Britt Mcneill APRN-AVELINA [facility] RE[facility] BY [facility] [address] [address] PCP - General Family Medicine 06/13/25 documented as of this encounter
--- OUTSIDE RECORDS SUMMARY | 2025-07-30 07:21 | XMS_ITS | Clinical Summary ---
Author Organization [employer] Address [id number] [address] [place] [address] Care Team Providers Care Emergency Response Officer Name Role Phone Charito, Britt GUZMAN-ANTHROPOLOGY INSTRUCTOR Primary Care Provider + Allergies No known active allergies Medications sodium chloride 1,000 mg tablet,soluble Take 1 tablet (1,000 mg total) by mouth in the morning and 1 tablet (1,000 mg total) before bedtime. 05/14/2025 Active aspirin 81 mg Take 1 tablet (81 mg total) by mouth in the morning. Active tamsulosin (FLOMAX) 0.4 mg capsule Take 1 capsule (0.4 mg total) by mouth nightly. 05/07/2025 Active levothyroxine (SYNTHROID, LEVOTHROID) 25 MCG tablet Take 1 tablet (25 mcg total) by mouth in the morning. 03/07/2025 Active urea (URE-NA) 15 gram powder in packet Take 1 packet (15 g total) by mouth in the morning. Active finasteride (PROSCAR) 5 mg tablet Take 1 tablet (5 mg total) by mouth in the morning. 01/29/2025 Active gabapentin (NEURONTIN) 300 mg capsule Take 1 capsule (300 mg total) by mouth in the morning. 04/25/2025 Active glimepiride (AMARYL) 2 mg tablet Take 1 tablet (2 mg total) by mouth every morning before breakfast. Active omeprazole (PriLOSEC) 40 mg capsule Take 1 capsule (40 mg total) by mouth every morning before breakfast. 01/07/2025 Active pravastatin (PRAVACHOL) 40 mg tablet Take 1 tablet (40 mg total) by mouth in the morning. 10/04/2024 Active coenzyme [id number] 100-5 mg-unit capsule Take 100 mg by mouth in the morning. Active apixaban (ELIQUIS) 5 mg tablet Take 1 tablet (5 mg total) by mouth in the morning and 1 tablet (5 mg total) before bedtime. Do all this for 30 days. 60 tablet 06/23/2025 07/23/20 25 midodrine (PROAMATINE) 5 mg tablet Take 1 tablet (5 mg total) by mouth 3 (three) times a day for 30 days. 90 tablet 06/23/2025 07/23/20 25 Active Problems Problem Noted Date Diagnosed Date CVA (cerebral vascular accident) 06/17/2025 Encounters Date Type Department Care Team Description 06/20/2025 Orders Only [facility] [address] [place] [phone] Transcribe, Orders Support User Pain (Primary Dx) 06/17/2025 1:38 PM EDT - 06/23/2025 3:00 PM EDT Hospital Encounter [facility] - GEN 8 Acute [address] [place] [address] Mirian Carranza MD Das, Avijit, MD 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 ([facility]) (Primary Dx) Discharge Disposition: [facility] Facility-Medicare Cert 06/17/2025 1:00 PM EDT Ancillary Procedure [facility] [address] [place] [address] [id number] Pain 06/17/2025 12:55 PM EDT Ancillary Procedure [facility] [address] [place] [address] [phone] Pain 06/17/2025 11:35 AM EDT Ancillary Procedure [facility] [address] [place] [phone] Pain 06/17/2025 Travel 06/13/2025 3:50 PM EDT Ancillary Procedure [facility] [address] [place] [phone] Pain 06/13/2025 11:05 AM EDT Ancillary Procedure [facility] [place] [address] Pain 06/13/2025 Orders Only [facility] [address] [place] [phone] Transcribe, Orders Support User Pain (Primary Dx) 06/12/2025 7:35 PM EDT Ancillary Procedure [facility] [address] [place] [phone] Pain 06/12/2025 7:30 PM EDT Ancillary Procedure [facility] [address] [place] [phone] Pain 06/12/2025 6:30 PM EDT - 06/16/2025 1:56 PM EDT Emergency [facility] [address] [place] [address] Discharge Disposition: Telemedicine Discharge 06/12/2025 6:25 PM EDT Ancillary Procedure [facility] [address] [place] [phone] Pain 06/12/2025 6:05 PM EDT Ancillary Procedure [facility] [address] [place] [phone] Pain 06/12/2025 Orders Only [facility] [address] [place] [phone] External, Scanning Provider Pain (Primary Dx) from Last 3 Months Immunizations Immunization Administration Dates Next Due Covid-19, Mrna, Lnp-s, Pf,tr is-sucrose,30 Mcg/0.3ml Seasonal 08/19/2023 Influenza High Dose Preservative Free IM 024,08/02/2014 Influenza Vaccine, Quadrivalent, Adjuvanted 04/2023 Influenza, High-dose, Quadrivalent 03/31/2021 Influenza, Unspecified 08/09/2013,07/31/2012, Pneumococcal Conjugate 13-Valent 03/31/2015 Pneumococcal Conjugate 20-valent 09/21/2023 Td, Unspecified 03/07/2012 Zoster Live 08/29/2013 Social History Tobacco Use Types Packs/Day Years Used Date Smoking Tobacco: Never Smokeless Tobacco: Never Tobacco Cessation:Counseling Given: Not Answered Alcohol Use Standard Drinks/Week Comments Not Currently 0 (1 standard drink = 0.6 oz pur e alcohol) [facility] Utilities Answer Date Recorded In [...] Sign Reading Time Taken Comments Blood Pressure 114/63 06/23/2025 11:50 AM EDT Pulse 67 06/23/2025 11:50 AM EDT Temperature 36.5 C (97.7 F) 06/23/2025 11:50 AM EDT Respiratory Rate 16 06/23/2025 11:5 0 AM EDT Oxygen Saturation 99% 06/23/2025 11: 50 AM EDT Inhaled Oxygen Concentration - - Weight 71.6 kg (157 lb 13.6 oz) 06/23/2025 4:38 AM EDT Height 177.8 cm (5' 10 ) 06/19/2025 12: 37 PM EDT Body Mass Index 22.65 06/19/2025 12:37 PM EDT Plan of Treatment Health Maintenance Due Date Last Done Comments Fall Risk Screening 2007 DTaP,Tdap and Td Vaccines (1 - Tdap) 03/08/2012 03/07/2012 Zoster (Shingles) Vaccine (2 of 3) 10/24/2013 08/29/2013 COVID-19 Vaccine (3 - 2023-2 5 season) 2025 09/29/2024, 08/19/2023 Influenza Vaccine 07/15/2025 09/29/2024, , 03/31/2021, Additional history exists Depression Screening 06/17/2026 06/17/2025 Tobacco Screening 06/17/2026 06/17/2025 Goals Goal Patient Goal Type Associated Problems Recent Progress Patient-Stated? Author Autogenerated Goal General No DayDawson RN <enter goal here> General Yes DayDawson RN Note: Evaluation of progress towards goal: Home with [facility] Medical Devices Not on file Procedures Procedure Name Priority Date/Time Associated Diagnosis Comments ELECTROLYTE PANEL Routine 06/23/2025 12: 46 PM EDT IONIZED CALCIUM Routine 06/23/2025 6:11 AM EDT PHOSPHORUS Routine 06/23/2025 6:11 AM EDT MAGNESIUM Routine 06/23/2025 6:11 AM EDT PROTIME & INR Routine 06/23/2025 6:11 AM EDT CBC WITH AUTO DIFFERENTIAL Routine 06/23/2025 6:11 AM EDT BASIC METABOLIC PANEL Routine 06/23/2025 6:11 AM EDT ELECTROLYTE PANEL Routine 06/22/2025 6:0 9 PM EDT ECG 12-LEAD Routine 06/22/2025 3:41 PM EDT ELECTROLYTE PANEL Routine 06/22/2025 5:4 2 AM EDT EXTRA TUBES LAVENDER TOP Routine 06/22/2025 5:40 AM EDT EXTRA TUBES Routine 06/22/2025 5:40 AM EDT CBC WITH AUTO DIFFERENTIAL Routine 06/22/2025 2:21 AM EDT HEPARIN ANTI XA, UNFRACTIONATED Routine 06/22/2025 2:20 AM EDT PROTIME & INR Routine 06/22/2025 2:20 AM EDT BASIC METABOLIC PANEL Routine 06/22/2025 2:20 AM EDT HEPARIN ANTI XA, UNFRACTIONATED Routine 06/21/2025 7:25 PM EDT ELECTROLYTE PANEL Routine 06/21/2025 7:2 5 PM EDT CK TOTAL Add-On 06/21/2025 1:14 PM EDT C-REACTIVE PROTEIN Add-On 06/21/2025 1: 14 PM EDT ELECTROLYTE PANEL Routine 06/21/2025 1:[address] BRAIN WO CONT STAT 06/21/2025 10:5 1 AM EDT BLOOD GAS, VENOUS Routine 06/21/2025 10: 26 AM EDT ERYTHROCYTE SEDIMENTATION RATE (ESR) Add-On 06/21/2025 7:58 AM EDT HEPARIN ANTI XA, UNFRACTIONATED Routine 06/21/2025 7:58 AM EDT PROTIME & INR Routine 06/21/2025 7:58 AM EDT CBC WITH AUTO DIFFERENTIAL Routine 06/21/2025 7:58 AM EDT BASIC METABOLIC PANEL Routine 06/21/2025 7:58 AM EDT ELECTROLYTE PANEL Routine 06/21/2025 12: 13 AM EDT EXTRA TUBES LAVENDER TOP Routine 06/20/2025 6:07 PM EDT EXTRA TUBES Routine 06/20/2025 6:07 PM EDT EEG VIDEO MONITORING Routine 06/20/2025 6:06 PM EDT DISCONTINUE IN PROCESS EEG TESTING Routine 06/20/2025 6:06 PM EDT ELECTROLYTE PANEL Routine 06/20/2025 6:0 6 PM EDT OSMOLALITY, URINE Routine 06/20/2025 5:0 2 PM EDT SODIUM, URINE, RANDOM Routine 06/20/2025 5:02 PM EDT URINE CREATININE,RANDOM Routine 06/20/2025 5:02 PM EDT THYROID PROFILE INCLUDES TSH FT4 Add-On 06/20/2025 12:38 PM EDT URIC ACID Add-On 06/20/2025 12:38 PM EDT ELECTROLYTE PANEL Routine 06/20/2025 12: 38 PM EDT HEPARIN ANTI XA, UNFRACTIONATED Routine 06/20/2025 8:44 AM EDT PROTIME & INR Routine 06/20/2025 8:44 AM EDT CBC WITH AUTO DIFFERENTIAL Routine 06/20/2025 8:44 AM EDT BASIC METABOLIC PANEL Routine 06/20/2025 8:44 AM EDT EEG VIDEO MONITORING Routine 06/20/2025 6:00 AM EDT ELECTROLYTE PANEL Routine 06/20/2025 12: 42 AM EDT ELECTROLYTE PANEL Routine 06/19/2025 7:2 7 PM EDT HEPARIN ANTI XA, UNFRACTIONATED Routine 06/19/2025 3:36 PM EDT ECHO COMPLETE WO CONTRAST Routine 06/19/2025 12:37 PM EDT VASC CAROTID DUPLEX BILATERAL Routine 06/19/2025 11:48 AM EDT HEPARIN ANTI XA, UNFRACTIONATED Routine 06/19/2025 7:18 AM EDT MAGNESIUM Routine 06/19/2025 7:18 AM EDT CBC WITH AUTO DIFFERENTIAL Routine 06/19/2025 7:18 AM EDT BASIC METABOLIC PANEL Routine 06/19/2025 7:18 AM EDT HEPARIN ANTI XA, UNFRACTIONATED Routine 06/18/2025 10:28 PM EDT EEG Routine 06/18/2025 5:18 PM EDT BEDSIDE GLUCOSE Routine 06/18/2025 4:01 PM EDT EXTRA TUBES PST TOP Routine 06/18/2025 3 :28 PM EDT MAGNESIUM Add-On 06/18/2025 3:28 PM EDT EXTRA TUBES Routine 06/18/2025 3:28 PM EDT PROTIME & INR Routine 06/18/2025 3:28 PM EDT PLATELET COUNT Routine 06/18/2025 3:28 PM EDT HEMOGLOBIN Routine 06/18/2025 3:28 PM EDT APTT Add-On 06/18/2025 11:01 AM EDT PROTIME & INR Routine 06/18/2025 11:01 AM EDT OSMOLALITY Routine 06/18/2025 11:01 AM EDT MR BRAIN WO CONT Routine 06/18/2025 9:32 AM EDT CBC WITH AUTO DIFFERENTIAL Routine 06/18/2025 3:43 AM EDT BASIC METABOLIC PANEL Routine 06/18/2025 3:43 AM EDT LIPID PROFILE Routine 06/18/2025 3:43 AM EDT HEMOGLOBIN A1C Routine 06/18/2025 3:43 AM EDT CBC WITH AUTO DIFFERENTIAL Routine 06/17/2025 4:53 PM EDT COMPREHENSIVE METABOLIC PANEL Routine 06/17/2025 4:53 PM EDT PHOSPHORUS Routine 06/17/2025 4:53 PM EDT MAGNESIUM Routine 06/17/2025 4:53 PM EDT BEDSIDE GLUCOSE Routine 06/17/2025 4:[address] CEREBRAL PERF ANALYSIS STAT 06/17/2025 4:[address] CTA CAROTID Routine 06/17/2025 1:[address] CTA HEAD Routine 06/17/2025 12:[address] BRAIN WO CONT STROKE ALERT STAT Reading 06/17/2025 11:35 AM EDT Pain MR BRAIN WO CONT Routine 06/13/2025 3:50 PM EDT Pain NON [facility] E[facility] Routine 06/13/2025 11 :[address] CTA HEAD Routine 06/12/2025 7:[address] CTA CAROTID Routine 06/12/2025 7:30 PM EDT Pain XR CHEST 1 VW Routine 06/12/2025 6:[address] BRAIN WO CONT STROKE ALERT STAT Reading 06/12/2025 6:05 PM EDT Pain from Last 3 Months Results * (ABNORMAL) Electrolyte panel (06/23/2025 12:46 PM EDT) Only the most recent of10 resultswithin the time period is included. SODIUM 133(L) 134 - 146 mmol/L 06/23/2025 1:36 PM EDT [facility] POTASSIUM 4.2 3.5 - 5.0 mmol/L 06/23/2025 1:36 PM EDT [facility] CHLORIDE 96(L) 98 - 109 mmol/L 06/23/2025 1:36 PM EDT [facility] CARBON DIOXIDE 27 22 - 32 mmol/L 06/23/2025 1:36 PM EDT [facility] ANION GAP 10 5 - 15 mmol/L 06/23/2025 1:36 PM EDT [facility] Blood Venous blood / Unknown Venipuncture / Unknown 06/23/2025 12:46 PM EDT 06/23/2025 1:05 PM EDT us Toy Baez MD LAB BLOOD ORDERABLES Final Resul t [facility] [address] [place] [address], [place] [phone] * CBC auto differential (06/23/2025 6:11 AM EDT) Only the most recent of7 resultswithin the time period is included. WBC 4.2 4 - 11 x10E9/L 06/23/2025 7:27 AM EDT [facility] RBC Count 4.40 4.1 - 5.7 X10E12/L 06/23/2025 7:27 AM EDT [facility] Hemoglobin 13.8 13 - 17 g/dL 06/23/2025 7:27 AM EDT [facility] Hematocrit 40.0 39 - 50 % 06/23/2025 7:27 AM EDT [facility] MCV 91 80 - 100 fL 06/23/2025 7:27 AM EDT [facility] MCH 31.3 27 - 34 pg 06/23/2025 7:27 AM EDT [facility] MCHC 34.5 32 - 36 g/dL 06/23/2025 7:27 AM EDT [facility] RDW 13.8 11.5 - 15 % 06/23/2025 7:27 AM EDT [facility] Platelet Count 234 150 - 450 X10E9/L 06/23/2025 7:27 AM EDT [facility] MPV 9.5 7 - 12 fL 06/23/2025 7:27 AM EDT [facility] Neutrophils % 50.6 % 06/23/2025 7:27 AM EDT [facility] Lymphocytes % 34.7 % 06/23/2025 7:27 AM EDT [facility] Monocytes % 10.2 % 06/23/2025 7:27 AM EDT [facility] Eosinophils % 3.0 % 06/23/2025 7:27 AM EDT [facility] Basophils % 1.5 % 06/23/2025 7:27 AM EDT [facility] Neutrophils Absolute (A) 2.1 1.5 - 6.6 10*3/uL 06/23/2025 7:27 AM EDT [facility] Lymphocytes Absolute 1.5 1.0 - 3.5 10*3/uL 06/23/2025 7:27 AM EDT [facility] Monocytes Absolute 0.4 0.0 - 0.9 10*3/uL 06/23/2025 7:27 AM EDT [facility] Eosinophils Absolute 0.1 0.0 - 0.4 10*3/uL 06/23/2025 7:27 AM EDT [facility] Basophils Absolute 0.1 0.0 - 0.2 10*3/uL 06/23/2025 7:27 AM EDT [facility] Differential Type AUTOMATED DIFFERENTIAL 06/23/2025 7:27 AM EDT [facility] Blood Venous blood / Unknown Venipuncture / Unknown 06/23/2025 6:11 AM EDT 06/23/2025 7:14 AM EDT Rcoio Davis MD LAB BLOOD ORDERABLES Final Resu lt [facility] [address] [place] [address], [place] [phone] * (ABNORMAL) Protime & INR (06/23/2025 6:11 AM EDT) Only the most recent of6 resultswithin the time period is included. PROTIME 32.1(H) 9.8 - 13.2 sec 06/23/2025 8:52 AM EDT [facility] INR 2.8(H) 0.9 - 1.2 06/23/2025 8:52 AM EDT [facility] Blood Venous blood / Unknown Venipuncture / Unknown 06/23/2025 6:11 AM EDT 06/23/2025 7:14 AM EDT us Rocio Davis MD LAB BLOOD ORDERABLES Final Resu lt [facility] [address] [place] [address], * Phosphorus (06/23/2025 6:11 AM EDT) Only the most recent of2 resultswithin the time period is included. PHOSPHORUS 3.5 2.4 - 4.9 mg/dL 06/23/2025 7:51 AM EDT [facility] Blood Venous blood / Unknown Venipuncture / Unknown 06/23/2025 6:11 AM EDT 06/23/2025 7:14 AM EDT us Toy Baez MD LAB BLOOD ORDERABLES Final Resul t Performing Organization Address [facility] Co de Phone Number [facility] [address] [place] [address], * (ABNORMAL) Magnesium (06/23/2025 6:11 AM EDT) Only the most recent of4 resultswithin the time period is included. MAGNESIUM 1.6(L) 1.8 - 2.6 mg/dL 06/23/2025 7:51 AM EDT [facility] Blood Venous blood / Unknown Venipuncture / Unknown 06/23/2025 6:11 AM EDT 06/23/2025 7:14 AM EDT us Toy Baez MD LAB BLOOD ORDERABLES Final Resul t Performing Organization Address City/[facility]/ZIP Co de Phone Number [facility] [address] [place] [address], * Ionized calcium (06/23/2025 6:11 AM EDT) IONIZED CALCIUM - ICAN 5.1 4.5 - 5.3 mg/dL 06/23/2025 7:36 AM EDT [facility] Blood Venous blood / Unknown Venipuncture / Unknown 06/23/2025 6:11 AM EDT 06/23/2025 7:13 AM EDT us Toy Baez MD LAB BLOOD ORDERABLES Final Resul t [facility] [address] [place] [address], [place] [phone] * (ABNORMAL) Basic Metabolic Panel (06/23/2025 6:11 AM EDT) Only the most recent of6 resultswithin the time period is included. SODIUM 133(L) 134 - 146 mmol/L 06/23/2025 7:51 AM EDT [facility] POTASSIUM 4.5 3.5 - 5.0 mmol/L 06/23/2025 7:51 AM EDT [facility] CHLORIDE 95(L) 98 - 109 mmol/L 06/23/2025 7:51 AM EDT [facility] CARBON DIOXIDE 31 22 - 32 mmol/L 06/23/2025 7:51 AM EDT [facility] ANION GAP 7 5 - 15 mmol/L 06/23/2025 7:51 AM EDT [facility] BLOOD UREA NITROGEN 29(H) 5 - 27 mg/dL 06/23/2025 7:51 AM EDT [facility] CREATININE 0.80 0.60 - 1.30 mg/dL 06/23/2025 7:51 AM EDT [facility] Comment:METHOD TRACEABLE TO IDMS STANDARD GLUCOSE 101(H) 65 - 99 mg/dL 06/23/2025 7:51 AM EDT [facility] CALCIUM 9.9 8.5 - 10.5 mg/dL 06/23/2025 7:51 AM EDT [facility] EGFR Non-Race Dependent 88 >=60 ml/min/1.7 3sq.m 06/23/2025 7:51 AM EDT [facility] Comment: Reported eGFR is based on the CKD-EPI 2020 equation that does not use a race coefficient. Blood Venous blood / Unknown Venipuncture / Unknown 06/23/2025 6:11 AM EDT 06/23/2025 7:14 AM EDT us Rocio Davis MD LAB BLOOD ORDERABLES Final Resu lt Performing Organization Address City/[facility]/ZIP Co de Phone Number [facility] [address] [place] [address], [place] [phone] * ECG 12 Lead (06/22/2025 3:41 PM EDT) 06/22/2025 3:41 PM EDT Narrative TRACEMASTERVUE - 06/23/2025 11:01 AM EDT us Saurabh Crisostomo MD ECG ORDERABLES Final Result Performing Organization Address [facility] de Phone Number [email or web address] * Lavender Top (06/22/2025 5:40 AM EDT) Only the most recent of2 resultswithin the time period is included. Extra Tube Auto Resulted 06/22/2025 7:01 AM EDT [facility] Blood Venous blood / Unknown 06/22/2025 5:40 AM EDT 06/22/2025 6:58 AM EDT us Saurabh Crisostomo MD LAB BLOOD ORDERABLES Final Resul t Performing Organization Address City/[facility] Co de Phone Number [facility] [address] [place] [address], [place] [phone] * Anti XA unfractionated heparin (06/22/2025 2:20 AM EDT) Only the most recent of7 resultswithin the time period is included. ANTI XA UFH 0.56 0.30 - 0.70 IU/mL 06/22/2025 3:42 AM EDT [facility] Comment: Optimal time for testing is 6 hrs post dosage This test is specific for monitoring patients on UFH, and is not recommended for use with other Anti-Xa medications. Blood Venous blood / Unknown Venipuncture / Unknown 06/22/2025 2:20 AM EDT 06/22/2025 3:10 AM EDT us Mirian Carranza MD LAB BLOOD ORDERABLES Final Resul t [facility] [address] [place] [address], [place] [phone] * (ABNORMAL) C-reactive protein (06/21/2025 1:14 PM EDT) C REACTIVE PROTEIN 8.9(H) <=0.7 mg/dL 06/21/2025 3:56 PM EDT [facility] Blood Venous blood / Unknown Venipuncture / Unknown 06/21/2025 1:14 PM EDT 06/21/2025 1:23 PM EDT us Saurabh Crisostomo MD LAB BLOOD ORDERABLES Final Resul t [facility] [address] [place] [address], [place] [phone] * CK Total (06/21/2025 1:14 PM EDT) CPK 26 24 - 195 U/L 06/21/2025 3:56 PM EDT [facility] Blood Venous blood / Unknown Venipuncture / Unknown 06/21/2025 1:14 PM EDT 06/21/2025 1:23 PM EDT us Saurabh Crisostomo MD LAB BLOOD ORDERABLES Final Resul t [facility] [address] [place] [address], [place] [phone] * CT brain without contrast (06/21/2025 10:51 AM EDT) Anatomical Region Laterality Modality Neuro, Head, Head and Neck, Neuro Covera N/A Computed Tomography 06/21/2025 10:5 5 AM EDT Narrative 06/21/2025 10:56 AM EDT Examination: Noncontrast brain CT Date of Exam:06/21/2025 [...] Esau Restrepo MD on 06/21/2025 10:56 AM Procedure Note Esau Restrepo MD - 06/21/2025 Examination: Noncontrast brain CT Date of Exam:06/21/2025 Clinical History:Confusion Comparison:06/17/2025 Procedure: Multi-detector CT performed through the brain without IVcontrast. Automatic exposure control (AEC) was utilized. Findings: There is no intracranial hemorrhage, extra-axial fluidcollection, mass effect, or hydrocephalus. Best-white matter differentiation is appropriate. Infarcts may be occulton CT, but grossly no acute infarct identified There is no midline shift. IMPRESSION: 1. No acute findings. 2. See MRI brain dated 06/18/2025. All CT scans at this facility use dose modulation, iterativereconstruction, and/or weight based dosing when appropriate to reduceradiation dose to as low as reasonably achievable. Finalized by Esau Restrepo MD on 06/21/2025 10:56 AM Saurabh Crisostomo MD IM CT ORDERABLES Final Result * (ABNORMAL) Blood gas, venous (06/21/2025 10:26 AM EDT) Sample type VENOUS 06/21/2025 10:35 AM EDT [facility] pH, Venous 7.351 7.320 - 7.420 06/21/2025 10:35 AM EDT [facility] pCO2, Venous 51.8(H) 35.0 - 50.0 mmHg 06/21/2025 10:35 AM EDT [facility] pO2, Venous 29(L) 30 - 50 mmHg 06/21/2025 10:35 AM EDT [facility] Base, Excess 2.0 0.0 - 2.0 mmol/L 06/21/2025 10:35 AM EDT [facility] HCO3, Venous 28.7(H) 20.0 - 24.0 mmol/L 06/21/2025 10:35 AM EDT [facility] %O2 Saturation, Venous 50.0 % 06/21/2025 10:35 AM EDT [facility] Romero's test N/A 06/21/2025 10:35 AM [facility] Sample site N/A 06/21/2025 10:35 AM [facility] Insp. O2 conc. 21 % 06/21/2025 10:35 AM [facility] Source Of Oxygen Room Air 06/21/2025 10:35 AM T [facility] venous Venous blood / Unknown 06/21/2025 10:26 AM EDT 06/21/2025 10:35 AM EDT us Saurabh Crisostomo MD LAB BLOOD ORDERABLES Final Resul t [facility] [address] [place] [address], [place] * (ABNORMAL) Erythrocyte Sedimentation Rate (ESR) (06/21/2025 7:58 AM EDT) ESR, Erythrocyte Sedimentation Rate 46(H) 0 - 20 mm/h 06/21/2025 3:44 PM EDT [facility] Blood Venous blood / Unknown Venipuncture / Unknown 06/21/2025 7:58 AM EDT 06/21/2025 8:07 AM EDT Saurabh Crisostomo MD LAB BLOOD ORDERABLES Final Resul t Performing Organization Address [facility] Co de Phone Number [facility] [address] [place] [address], [place] [phone] * EEG VIDEO MONITORING (06/20/2025 6:06 PM EDT) Narrative MANUALLY TRANSCRIBED RESULTS - 06/25/2025 10:40 AM EDT Images from the original result were not included. Continuous video EEG monitoring study 06/20/2025 History: This is a n 85 yo man with altered mental status, concern for seizures. Procedure: Start: 06:30 End: 17:45 This is a standard CCTV EEG monitoring report using scalp and ear [...] or primary neurological disorders. Yaquelin Esparza MD Assistant Terminal Manager Neurology/Neurophysiology [facility] Generalized slowing Rocio Davis MD NEUROLOGY ORDERABLES Final Resu lt Performing Organization Address City/[facility] Co de Phone Number MANUALLY TRANSCRIBED RESULTS * DISCONTINUE IN PROCESS EEG TESTING (06/20/2025 6:06 PM EDT) Jose Miguel Maria MD NEUROLOGY ORDERABLES Final Resul t * Urine Creatinine,random (06/20/2025 5:02 PM EDT) URINE CREATININE,RDM 150.26 mg/dL 06/20/2025 5:49 PM EDT [facility] Urine Urine / Unknown 06/20/2025 5 :02 PM EDT 06/20/2025 5:19 PM EDT us Maisha Vergara MD URINE ORDERABLES Final Resu lt [facility] [address] [place] [address], [place] [phone] * Sodium, urine, random (06/20/2025 5:02 PM EDT) URINE SODIUM,RANDOM 64 mmol/L 06/20/2025 5:49 PM EDT [facility] Urine 06/20/2025 5:02 PM EDT 06/20/2025 5:19 PM EDT us Maisha Vergara MD URINE ORDERABLES Final Resu lt Performing Organization Address City/[facility]/ZIP Co de Phone Number [facility] [address] [place] [address], [place] [phone] * Osmolality, urine (06/20/2025 5:02 PM EDT) URINE OSMOLALITY 565 300 - 1,300 mOsm/kg H2 06/20/2025 6:01 PM EDT [facility] Urine 06/20/2025 5:02 PM EDT 06/20/2025 5:19 PM EDT us Maisha Vergara MD URINE ORDERABLES Final Resu lt Performing Organization Address City/[facility]/ZIP Co de Phone Number [facility] [address] [place] [address], [place] [phone] * (ABNORMAL) Thyroid profile includes TSH FT4 (06/20/2025 12:38 PM EDT) FREE T4 1.13 0.61 - 1.60 ng/dL 06/20/2025 2:17 PM EDT [facility] TSH 4.83(H) 0.49 - 4.67 uIU/mL 06/20/2025 2:17 PM EDT [facility] Blood Venous blood / Unknown Venipuncture / Unknown 06/20/2025 12:38 PM EDT 06/20/2025 12:48 PM EDT us Maisha Vergara MD LAB BLOOD ORDERABLES Final Result [facility] [address] [place] [address], * Uric acid (06/20/2025 12:38 PM EDT) URIC ACID 4.4 2.6 - 7.2 mg/dL 06/20/2025 2:22 PM EDT [facility] Blood Venous blood / Unknown Venipuncture / Unknown 06/20/2025 12:38 PM EDT 06/20/2025 12:48 PM EDT Maisha Vergara MD LAB BLOOD ORDERABLES Final Result [facility] [address] [place] [address], [place] [phone] * EEG VIDEO MONITORING IN PROGRESS (06/20/2025 6:00 AM EDT) Narrative MANUALLY TRANSCRIBED RESULTS - 06/20/2025 9:56 AM EDT Images from the original result were not included. Continuous video EEG monitoring study Date of Report: 06/20/2025 History: This is a n 85 yo man with altered mental status, concern for seizures. Procedure: Start: 20:37 06/19/2025 End: 06:30 06/20/2025 This is a standard [facility] EEG monitoring report using scalp and ear [...] or primary neurological disorders. Yaquelin Esparza MD Assistant Terminal Manager Neurology/Neurophysiology [facility] us Rocio Davis MD NEUROLOGY ORDERABLES Final Resu lt MANUALLY TRANSCRIBED RESULTS * Echo complete W/O contrast (06/19/2025 12:37 PM EDT) Est. RA pressure 15 mmHg XCELERA Anatomical Region Laterality Modality Chest N/A Ultrasound Narrative 06/19/2025 3:02 PM EDT Left Ventricle: Left ventricle appears normal in [...] in size. There is mild increased wall thickness/hypertrophy. Systolic function is mildly to moderately decreased [...] left ventricular wall motion is globally hypokinetic. Rocio Davis MD CV ECHO ORDERABLES Final Result * Vas carotid duplex bilateral (06/19/2025 11:48 AM EDT) Anatomical Region Laterality Modality Vascular Bilateral Ultrasound 06/19/2025 11:4 8 AM EDT Narrative 06/19/2025 5:39 PM EDT Right: Plaque with no significant ICA spectral [...] at the phone number beside their name. Procedure Note Abel Ballesteros MD - 06/19/2025 Right: Plaque with no significant ICA spectral Doppler or color flowdisturbances; ICA 59/08 cm/sec. Antegrade vertebral artery flow. Left: Plaque with no significant ICA spectral Doppler or color flowdisturbances; ICA 103/25 cm/sec. Antegrade vertebral artery flow. Conclusions: BILATERAL: Plaque without significant stenosis (<50%) of theinternal carotid artery. Antegrade vertebral artery flow. Recommendations: Any questions prior to finalization, please call thereading physician during normal business hours at the phone number besidetheir name. Rocio Davis MD CV VASCULAR ORDERABLES Final Re sult * EEG (06/18/2025 5:18 PM EDT) Narrative MANUALLY TRANSCRIBED RESULTS - 06/18/2025 10:33 PM EDT Images from the original result were not [...] or primary neurological disorders. Yaquelin Esparza MD Assistant Terminal Manager Neurology/Neurophysiology [facility] Rocio Davis MD NEUROLOGY ORDERABLES Final Resu lt MANUALLY TRANSCRIBED RESULTS * (ABNORMAL) Bedside Glucose *Place/Obtain serum glucose if >500 per glucometer. (06/18/2025 4:01 PM EDT) Only the most recent of2 resultswithin the time period is included. Bedside Glucose (POC) 154(H) 65 - 99 mg/dL 06/18/2025 4:21 PM EDT [facility] arterial/capilla ry 06/18/2025 4:01 PM EDT 06/18/2025 4:21 PM EDT Mirian Carranza MD POINT OF CARE TEST ORDERABLES Fi nal Result Performing Organization Address City/[facility]/ZIP Co de Phone Number [facility] [address] [place] [address], [place] * PST TOP (06/18/2025 3:28 PM EDT) Extra Tube Auto Resulted 06/18/2025 5:01 PM EDT [facility] Blood Venous blood / Unknown Venipuncture / Unknown 06/18/2025 3:28 PM EDT 06/18/2025 3:37 PM EDT Mirian Carranza MD LAB BLOOD ORDERABLES Final Resul t Performing Organization Address City/[facility]/ZIP Co de Phone Number [facility] [address] [place] [address], [place] [phone] * Platelet count (06/18/2025 3:28 PM EDT) [facility] Platelet Count 214 150 - 450 [id number]/L 06/18/2025 3:47 PM EDT [facility] MPV 8.7 7 - 12 fL 06/18/2025 3:47 PM EDT [facility] Blood Venous blood / Unknown Venipuncture / Unknown 06/18/2025 3:28 PM EDT 06/18/2025 3:36 PM EDT us Rocio Davis MD LAB BLOOD ORDERABLES Final Resu lt Performing Organization Address City/[facility]/ZIP Co de Phone Number [facility] [address] [place] [address], [place] [phone] * Hemoglobin (06/18/2025 3:28 PM EDT) Hemoglobin 13.9 13 - 17 g/dL 06/18/2025 3:47 PM EDT [facility] Blood Venous blood / Unknown Venipuncture / Unknown 06/18/2025 3:28 PM EDT 06/18/2025 3:36 PM EDT us Rocio Davis MD LAB BLOOD ORDERABLES Final Resu lt [facility] [address] [place] [address], [place] [phone] * APTT (06/18/2025 11:01 AM EDT) APTT 29 26 - 37 sec 06/18/2025 2:28 PM EDT [facility] Blood Venous blood / Unknown Venipuncture / Unknown 06/18/2025 11:01 AM EDT 06/18/2025 11:26 AM EDT us Rocio Davis MD LAB BLOOD ORDERABLES Final Resu lt Performing Organization Address City/[facility]/ZIP Co de Phone Number [facility] [address] [place] [address], [place] [phone] * (ABNORMAL) Osmolality (06/18/2025 11:01 AM EDT) OSMOLALITY 261(L) 280 - 300 mOsm/kg H2 06/18/2025 11:44 AM EDT [facility] Blood Venous blood / Unknown Venipuncture / Unknown 06/18/2025 11:01 AM EDT 06/18/2025 11:26 AM EDT us Rocio Davis MD LAB BLOOD ORDERABLES Final Resu lt Performing Organization Address City/[facility]/ZIP Co de Phone Number [facility] [address] [place] [address], [place] [phone] * MR brain without contrast (06/18/2025 9:32 AM EDT) Only the most recent of2 resultswithin the time period is included. Anatomical Region Laterality Modality Neuro, Head, Head and Neck, Neuro Covera N/A Magnetic Resonance 06/18/2025 9:44 AM EDT Narrative 06/18/2025 9:50 AM EDT HISTORY: An 85-year-old male with a history [...] Ray Vaughn MD on 06/18/2025 9:50 AM Procedure Note Ray Vaughn MD - 06/18/2025 HISTORY: An 85-year-old male with a history of the CVA and stroke.Left-sided weakness and facial droop. There is also a history of fall 3weeks ago. Stroke is suspected. TECHNIQUE: Multiplanar and multisequence MRI examination of brain isperformed without intravenous contrast administration. COMPARISON: Comparison is made with the CT scan of the brain from [facility] of 06/12/2025 and MRI examination of the brain of 06/13/2025. FINDINGS: The ventricular system is normal in size and configuration.There is generalized cortical atrophy. There are numerous foci of signal abnormality in the deep white mattersupratentorially consistent with small vessels ischemic change. There is asmall region of signal abnormality in the best and white matter of theleft parietal lobe. There is no evidence of restricted diffusion.Appearance could be from subacute or old infarction. Diffusion-weighted study demonstrates no evidence of restricted diffusionto suggest acute or subacute age of infarction. There is no evidence of intracranial mass, hemorrhage or acutepathology. The cerebellum and brainstem are unremarkable. No mass effect, midline shift of the structures or extra-axial fluidcollections are noted. The cavernous carotid and and basilar arteries are patent. Visualized paranasal sinuses are clear. IMPRESSION: * No evidence of restricted diffusion to suggest acute infarction. * Mild small vessels ischemic change in the deep white mattersupratentorially. * Focal area of signal abnormality in the best and white matter of theleft parietal lobe without evidence of restricted diffusion. Changes couldbe from subacute or chronic infarction. * No evidence of intracranial mass, hemorrhage or acute pathology. Finalized by Ray Vaughn MD on 06/18/2025 9:50 AM Rocio Davis MD [facility] ORDERABLES Final Result * (ABNORMAL) Hemoglobin A1c (06/18/2025 3:43 AM EDT) HEMOGLOBIN A1C 5.7(H) 4.4 - 5.6 % 06/18/2025 6:50 AM EDT [facility] Comment: ADA Guidelines Result HgbA1c Normal : less than 5.7 % Prediabetes : 5.7 % to 6.4 % Diabetes : > 6.4 % Use with caution in patients with abnormal hemoglobin variants as the half-life of red blood cells and in vivo glycation rates are affected. EST. AVERAGE GLUCOSE 117 mg/dL 06/18/2025 6:50 AM EDT [facility] Blood Venous blood / Unknown Venipuncture / Unknown 06/18/2025 3:43 AM EDT 06/18/2025 4:41 AM EDT Rocio Davis MD LAB BLOOD ORDERABLES Final Resu lt Performing Organization Address City/[facility]/ZIP Co de Phone Number [facility] [address] [place] [address], [place] [phone] * Lipid profile (06/18/2025 3:43 AM EDT) CHOLESTEROL 150 150 - 200 mg/dL 06/18/2025 5:11 AM EDT [facility] TRIGLYCERIDE 70 27 - 150 mg/dL 06/18/2025 5:11 AM EDT [facility] HDL CHOLESTEROL 41 >39 mg/dL 5:11 AM EDT [facility] Comment: HDL <40 mg/dL - High Risk HDL > or = 40mg/dL- Desirable HDL >60 mg/dL - Negative Risk LDL (CALC) 95 <130 mg/dL 06/18/2025 5:11 AM EDT [facility] Comment: LDL <100 mg/dL - Desirable LDL >160 mg/dL - High Risk CHOLESTEROL:HDL 3.7 1.0 - 5.0 5:11 AM EDT [facility] VERY LOW LIPOPROTEIN 14 0 - 30 mg/dL 06/18/2025 5:11 AM EDT [facility] Blood Venous blood / Unknown Venipuncture / Unknown 06/18/2025 3:43 AM EDT 06/18/2025 4:41 AM EDT us Rocio Davis MD LAB BLOOD ORDERABLES Final Resu lt [facility] [address] [place] [address], [place] [phone] * (ABNORMAL) Comprehensive metabolic panel (06/17/2025 4:53 PM EDT) SODIUM 127(L) 134 - 146 mmol/L 06/17/2025 5:44 PM EDT [facility] POTASSIUM 4.5 3.5 - 5.0 mmol/L 06/17/2025 5:44 PM EDT [facility] CHLORIDE 93(L) 98 - 109 mmol/L 06/17/2025 5:44 PM EDT [facility] CARBON DIOXIDE 26 22 - 32 mmol/L 06/17/2025 5:44 PM EDT [facility] ANION GAP 8 5 - 15 mmol/L 06/17/2025 5:44 PM EDT [facility] BLOOD UREA NITROGEN 10 5 - 27 mg/dL 06/17/2025 5:44 PM EDT [facility] CREATININE 0.75 0.60 - 1.30 mg/dL 06/17/2025 5:44 PM EDT [facility] Comment:METHOD TRACEABLE TO IDMS STANDARD GLUCOSE 94 65 - 99 mg/dL 06/17/2025 5:44 PM EDT [facility] CALCIUM 9.2 8.5 - 10.5 mg/dL 06/17/2025 5:44 PM EDT [facility] TOTAL PROTEIN 6.5 6.0 - 8.0 g/dL 06/17/2025 5:44 PM EDT [facility] ALBUMIN 3.9 3.2 - 5.3 g/dL 06/17/2025 5:44 PM EDT [facility] ALKALINE PHOSPHATASE 81 39 - 130 U/L 06/17/2025 5:44 PM EDT [facility] AST 20 <=41 U/L 06/17/2025 5:44 PM EDT [facility] ALT 11 <=40 U/L 06/17/2025 5:44 PM EDT [facility] BILIRUBIN,TOTAL 1.1 0.3 - 1.2 mg/dL 06/17/2025 5:44 PM EDT [facility] EGFR Non-Race Dependent 90 >=60 ml/min/1.7 3sq.m 06/17/2025 5:44 PM EDT [facility] Comment: Reported eGFR is based on the CKD-EPI 2020 equation that does not use a race coefficient. Blood Venous blood / Unknown Venipuncture / Unknown 06/17/2025 4:53 PM EDT 06/17/2025 5:02 PM EDT us Rocio Davis MD LAB BLOOD ORDERABLES Final Resu lt [facility] [address] [place] [address], * CT cerebral perfusion analysis (06/17/2025 4:12 PM EDT) Anatomical Region Laterality Modality Neuro, Vascular, Head and Neck, Head N/A Computed Tomography 06/17/2025 4:57 PM EDT Narrative 06/17/2025 5:[address] CEREBRAL PERF ANALYSIS: 06/17/2025 PROVIDED HISTORY: [...] Nico Dempsey MD on 06/17/2025 5:08 PM Procedure Note Nico Dempsey MD - 06/17/2025 CT CEREBRAL PERF ANALYSIS: 06/17/2025 PROVIDED HISTORY: * 85 years old Male * Stroke COMPARISON: MRI brain 06/13/2025 TECHNIQUE: 1. Axial CT brain perfusion was performed during the uneventfuladministration of intravenous contrast. Postprocessing with RAPID softwarewas used for interpretation. 2. All CT scans at this facility use dose modulation, iterativereconstruction, and/or weight based dosing when appropriate to reduceradiation dose to as low as reasonably achievable. FINDINGS: Arterial input function MEDHAT selected: Left carotid terminus Venous outflow function MEDHAT: Right proximal transverse sinus Elevated Tmax suggested in the region of the cavernous sinuses with mildinclusion of the left anterior temporal horn. CBF<30% volume: 0 mL Tmax>6.0s volume: 3 mL Mismatch volume: 3 mL Mismatch ratio: Infinite IMPRESSION: Questionable increased Tmax in the region of the left anterior temporalhorn, possibly artifactual, with perfusion parameters as described.Correlation with patient presentation and MRI brain, may be of diagnosticvalue. THIS REPORT CONTAINS AN URGENT RESULT AND/OR RECOMMENDATION, WHICHREQUIRES THE ATTENTION OF THE LICENSED CAREGIVER RESPONSIBLE FOR THISPATIENT. THEREFORE, I SPECIFICALLY DESIGNATED THIS REPORT TO BE TELEPHONED BY THERADIOLOGY DEPARTMENT. FINDINGS WERE INSTRUCTED TO BE CALLED TO THE CLINICAL SERVICE ON 55:07 PM Finalized by Nico Dempsey MD on 06/17/2025 5:08 PM us Tiffany Keenan MD IMG CT ORDERABLES Final Resu lt * CT angiogram carotid (06/17/2025 1:00 PM EDT) Only the most recent of2 resultswithin the time period is included. us Scanning Provider External IMG CT ORDERABLES Fin al Result * CT angiogram head (06/17/2025 12:55 PM EDT) Only the most recent of2 resultswithin the time period is included. us Scanning Provider External IMG CT ORDERABLES Fin al Result * CT brain without contrast stroke alert (06/17/2025 11:35 AM EDT) Only the most recent of2 resultswithin the time period is included. us Scanning Provider External IMG CT ORDERABLES Fin al Result * Non [facility] Echo (06/13/2025 11:05 AM EDT) us Scanning Provider External CV ECHO ORDERABLES Fi nal Result XCELERA * X-ray chest 1 view (06/12/2025 6:25 PM EDT) us Scanning Provider External IMG DIAGNOSTIC IMAGIN G ORDERABLES Final Result from Last 3 Months Insurance AETNA MEDICARE AETNA MEDICARE Advance Directives * Full Code (Latest Code Status on File) Date Activated Date Inactivated Comments 06/23/2025 10:31 AM 06/23/2025 6:28 PM Care Teams Emergency Response Officer Relationship Specialty Start Date End Date Britt Mcneill APRN-AVELINA [address] [place] [address] PCP - General Family Medicine 06/13/25
--- OUTSIDE RECORDS SUMMARY | 2025-07-30 07:21 | XMS_ITS | Encounter Summary ---
Author Organization [facility] Address [address], [address] [place] [address] Care Team Providers Care Acting Section Chief Name Role Phone Soledad Vicente MOLDER HELPER - QUILL STRIPPER Primary Care Provider [phone] Encounter Details Date Type Department Care Team (Late st Contact Info) Description 07/18/2025 Abstract [facility] [address] [place] [address] Flaco Alfaro MD [address] [place] [address] Social History Tobacco Use Types Packs/Day Years Used Date Smoking Tobacco: Never Smokeless Tobacco: Never Alcohol Use Standard Drinks/Week Comments Never 0 (1 standard drink = 0.6 oz pur e alcohol) [facility] Utilities Answer Date Recorded In the past 12 months has th e electric, gas, oil, or water [email or web address] threatened to shut off services in your [...] any time in the past 12 m [facility], were you homeless or living in a [place] health care facility (including now)? No 06/02/2025 Food Insecurity Answer [...] on filedocumented in this encounter Care Teams Acting Section Chief Relationship Specialty Start Date End Date Soledad Vicente APRN - NP [address] [place] [address] PCP - General 06/05/25 documented as of this encounter
--- OUTSIDE RECORDS SUMMARY | 2025-07-30 07:21 | XMS_ITS | Patient Health Record ---
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 [employer] Social History Tobacco Use: Social History Observation [...] Problem Neoplasm of uncertain behavior of skin (13929818) Neoplasm of uncertain behavior of skin (D48.5) Active confirmed Problem Thrombocytopenia (776921864) Thrombocytopenia, unspecified (D69.6) Active confirmed Problem Hypothyroidism (92536223) Hypothyroidism, unspecified (E03.9) Active confirmed Problem 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 (526498260) 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 (poly)neuropathy (E11.43) Active confirmed Problem Disorder due to type 2 diabetes mellitus (009865822) Type 2 diabetes mellitus with unspecified complications (E11.8) Active confirmed Problem Mild cognitive disorder (626908118) Mild cognitive impairment, so stated (G31.84) Active confirmed Problem Carpal tunnel syndrome (14539233) Carpal tunnel syndrome, left upper limb (G56.02) Active confirmed Problem Hordeolum externum (7061310) Hordeolum externum left upper eyelid (H00.014) Active confirmed Problem Chalazion (6661887) Chalazion left upper eyelid (H00.14) Active confirmed Problem Nuclear senile cataract (152600515) Age-related nuclear cataract, bilateral (H25.13) Active confirmed Problem Otitis externa (5353721) Unspecified otitis externa, unspecified ear (H60.90) Active confirmed Problem Actinic keratosis (899353) Actinic keratosis (L57.0) Active confirmed Problem Ingrowing nail (604282640) Ingrowing nail (L60.0) Active confirmed Problem Osteoarthritis (344394139) Unspecified osteoarthritis, unspecified site (M19.90) Active confirmed Problem Low back pain (058376413) Low back pain (M54.5) Active confirmed Problem Palpitations (71073058) Palpitations (R00.2) Active confirmed Problem Lower abdominal pain (65936948) Lower abdominal pain, unspecified (R10.30) Active confirmed Problem C-reactive protein abnormal (348931740) Elevated C-reactive protein (CRP) (R79.82) Active confirmed Problem Adult health examination (862509560) Encounter for general adult medical examination without abnormal findings (Z00.00) Active confirmed Problem Screening for malignant neoplasm of prostate (855806581) Encounter for screening for malignant neoplasm of prostate (Z12.5) Active confirmed Problem Counseling (436834919) Other specified counseling (Z71.89) Active confirmed Problem Hyperlipidemia (50146053) Hyperlipidemia, unspecified (E78.5) Active confirmed Problem Essential hypertension (97465488) Essential (primary) hypertension (I10) Active confirmed Problem Carpal tunnel syndrome (52563494) Carpal tunnel syndrome, bilateral upper limbs (G56.03) Active confirmed Problem Erectile dysfunction (668560102) Erectile Dysfunction (N52.9) Active confirmed Problem Vitamin D deficiency (07290469) Vitamin D deficiency (E55.9) Active confirmed Problem Atrial fibrillation (03217681) Atrial fibrillation (I48.91) Active confirmed continue current regimen of 5mg and 2.5mg every other day starting 11/21/20-CL K Problem Carotid bruit (350006449) Carotid bruit (R09.89) Active confirmed Problem Fatigue (16893157) Fatigue (R53.83) Active conf irmed Problem Nephrolithiasis (25605293) Nephrolithiasis (N20.0) Active confirmed Problem Cholelithiasis (883002906) Cholelithiasis (K80.20) Active confirmed Problem Carotid artery stenosis (07106559) CAROTID STENOSIS (I65.29) Active confirmed Problem Lumbar spondylosis (493167073) Lumbar spondylosis (M47.817) 020 Active confirmed Med HEDIS WAS DONE,unco ntrolled Problem Hyperglycemia due to type 2 diabetes mellitus (981988177494149) Type 2 diabetes mellitus with hyperglycemia (E11.65) Active confirmed Problem Vitamin B12 deficiency (155625433) Vitamin B12 deficiency (D51.9) Active confirmed Problem Hearing loss (54484536) Hearing loss (H91.90) Active confirmed Problem Memory loss (28767880) Memory loss (R41.3) Active confirmed Problem Lower urinary tract symptoms due to benign prostatic hypertrophy (35984488544237) Benign prostatic hyperplasia with lower urinary tract symptoms (N40.1) Active confirmed Problem Hyperlipidemia (39699990) Hyperlipidemia, unspecified (E78.5) Active confirmed Problem Gastroesophageal reflux disease (171605354) Gastroesophageal reflux disease (K21.9) Active confirmed Problem Hearing loss (disorder) (54220067) Hearing loss (disorder) (H91.90) Active confirmed Problem Carpal tunnel syndrome (disorder) (71644906) Carpal tunnel syndrome (disorder) (G56.00) Active confirmed Problem Pre-surgery evaluation (324267230) Pre-operative examination, unspecified (Z01.818) Active confirmed Problem Impacted cerumen (92240580) Impacted cerumen (H61.20) Active confirmed Problem Depression Screening (214248162) Encounter for screening for depression (Z13.31) Active confirmed Problem COVID-19 (532370648) COVID-19 (U07.1) Active confirmed Plan Of Treatment Pending Test Test Name Order Date ADVANCED CARE PLANNING 07/07/2021 *EAR Lavage 11/21/2020 *EAR Lavage 09/05/2020 TSH+FREE T4 12/19/2019 TSH+FREE T4 03/03/2021 TSH+FREE T4 02/16/2022 TSH+FREE T4 01/15/2022 TSH+FREE T4 10/19/2021 TSH+FREE T4 05/29/2021 LIPID PANEL WITH REFLEX TO DIRECT LDL LIPID PANEL WITH REFLEX TO DIRECT LDL LIPID PANEL WITH REFLEX TO DIRECT LDL LIPID PANEL WITH REFLEX TO DIRECT LDL LIPID PANEL WITH REFLEX TO DIRECT LDL LIPID PANEL WITH REFLEX TO DIRECT LDL THYROID PEROXIDASE AND THYROGLOBULIN ANT IBODIES 03/03/2021 THYROID PEROXIDASE AND THYROGLOBULIN ANT IBODIES 02/16/2022 THYROID PEROXIDASE AND THYROGLOBULIN ANT IBODIES 01/15/2022 THYROID PEROXIDASE AND THYROGLOBULIN ANT IBODIES 10/19/2021 THYROID PEROXIDASE AND THYROGLOBULIN ANT IBODIES 05/29/2021 COMPREHENSIVE METABOLIC PANEL (REFL) COMPREHENSIVE METABOLIC PANEL (REFL) 04/2021 COMPREHENSIVE METABOLIC PANEL (REFL) 02/2022 COMPREHENSIVE METABOLIC PANEL (REFL) 03/2022 COMPREHENSIVE METABOLIC PANEL (REFL) COMPREHENSIVE METABOLIC PANEL 12/19/2019 MAGNESIUM 12/19/2019 MAGNESIUM 03/03/2021 MAGNESIUM 02/16/2022 MAGNESIUM 01/15/2022 MAGNESIUM 10/19/2021 MAGNESIUM 05/29/2021 CBC (INCLUDES DIFF/PLT) 05/29/2021 CBC (INCLUDES DIFF/PLT) 10/19/2021 CBC (INCLUDES DIFF/PLT) 01/15/2022 CBC (INCLUDES DIFF/PLT) 02/16/2022 CBC (INCLUDES DIFF/PLT) 03/03/2021 CBC (INCLUDES DIFF/PLT) 12/19/2019 C-REACTIVE PROTEIN 12/19/2019 HS CRP 03/31/2021 HS CRP 02/16/2022 HS CRP 01/15/2022 HS CRP 10/19/2021 HS CRP 05/29/2021 HEMOGLOBIN A1c 05/29/2021 HEMOGLOBIN A1c 10/19/2021 HEMOGLOBIN A1c 01/15/2022 HEMOGLOBIN A1c 02/16/2022 HEMOGLOBIN A1c 12/19/2019 VITAMIN B12/FOLATE, SERUM PANEL 12/19/19 20 VITAMIN B12/FOLATE, SERUM PANEL 03/03/20 21 VITAMIN B12/FOLATE, SERUM PANEL 02/17/20 22 VITAMIN B12/FOLATE, SERUM PANEL 01/16/20 22 VITAMIN B12/FOLATE, SERUM PANEL 10/19/20 21 VITAMIN B12/FOLATE, SERUM PANEL 05/29/20 21 T3, FREE 10/19/2021 T3, FREE 01/15/2022 T3, FREE 02/16/2022 T3, FREE 03/03/2021 T3, FREE 05/29/2021 T3, FREE 12/19/2019 VITAMIN D,25-OH,TOTAL,IA 12/19/2019 VITAMIN D,25-OH,TOTAL,IA 03/03/2021 VITAMIN D,25-OH,TOTAL,IA 02/16/2022 VITAMIN D,25-OH,TOTAL,IA 10/19/2021 VITAMIN D,25-OH,TOTAL,IA 01/15/2022 VITAMIN D,25-OH,TOTAL,IA 05/29/2021 TISSUE PATHOLOGY 08/28/2020 *MSE-MEMORY TEST 12/07/2019 *Cryosurgery 15 or more 05/26/2022 *Cryosurgery 15 or more 11/20/2021 *Cryosurgery 15 or more 09/17/2020 *Cryosurgery 15 or more 12/19/2019 *Biopsy 1st 12/19/2019 *PT/INR 01/28/2021 *PT/INR 11/20/2021 *PT/INR 12/18/2021 *Urine Microalbumin 12/18/2021 *Creatine 12/18/2021 *Annual Depresion Screening 12/07/2019 *Annual Depresion Screening 12/19/2020 *[facility] ANNUAL WELLNESS VISIT 04/29/2020 *Digital Prostate Exam [...] Coverage End Date [employer] [address] [address] [place] [address] [phone] [id number] Dariel Aguilera Self - patient is the [...]
--- OUTSIDE RECORDS SUMMARY | 2025-07-30 07:21 | XMS_ITS | Encounter Summary ---
Author Organization [facility] Address [address] [place] [address] Care Team Providers Care Ethics Manager Name Role Phone Edwin Medina MD Primary Care Provider [phone] Encounter Details Date Type Department Care Team (Late st Contact Info) Description 07/21/2025 External Result Encounter [facility] External Department Unsolicited Win Santillan, DO [address] [facility] [address] [place] [address] Social History Tobacco Use Types Packs/Day Years [...] Procedure Name Priority Date/Time Associated Diagnosis Comments C-REACTIVE PROTEIN Routine 07/21/2025 4: 46 AM EDT documented in this encounter Results * (ABNORMAL) C-reactive protein (07/21/2025 4:46 AM EDT) C-REACTIVE PROTEIN 12.1(H) 0.0 - 0.5 mg/dL 07/21/2025 5:14 AM EDT [facility] Other Topography unknown / Unknown 07/21/2025 4:46 AM EDT 07/21/2025 4:49 AM EDT us Win Santillan DO LAB BLOOD ORDERABLES Final Resu lt ON LICENSE OF [facility] [address] [place] [address], [facility] [place] [facility] [address] [place] [address] documented in this encounter Visit Diagnoses Not on filedocumented in this encounter Care Teams Ethics Manager Relationship Specialty Start Date End Date Edwin Medina MD [address] [place] [phone] PCP - General Family Medicine 11/26/24 documented as of this encounter
--- OUTSIDE RECORDS SUMMARY | 2025-07-30 07:21 | XMS_ITS | Encounter Summary ---
Author Organization [facility] Address [address] [place] [address] Care Team Providers Care Form Stripper Name Role Phone Edwin Medina MD Primary Care Provider [phone] Encounter Details Date Type Department Care Team (Late st Contact Info) Description 07/22/2025 External Result Encounter [facility] External Department Unsolicited Win Santillan, DO [address] [place] [address] Social History Tobacco Use Types Packs/Day Years [...] AUTO DIFFERENTIAL Routine 07/22/2025 4:45 AM EDT documented in this encounter Results * (ABNORMAL) CBC auto differential (07/22/2025 4:45 AM EDT) WBC 6.9 4.1 - 10.5 [CFU]/mL 07/22/2025 5:07 AM EDT [facility] UNCORRECTED WHITE BLOOD COUNT 6.9 4.1 - 10.5 10*3/uL 07/22/2025 5:07 AM EDT [facility] RBC 3.54(L) 3.90 - 5.60 10*6/uL 07/22/2025 5:07 AM EDT [facility] HEMOGLOBIN 11.2(L) 13.0 - 17.0 g/dL 07/22/2025 5:07 AM EDT [facility] HEMATOCRIT 32.4(L) 38.8 - 50.0 % 07/22/2025 5:07 AM EDT [facility] MCV 91.5 83.5 - 101 fL 07/22/2025 5:07 AM EDT [facility] MCH 31.5 27.5 - 35.2 pg 07/22/2025 5:07 AM EDT [facility] MCHC 34.4 32.5 - 35.6 g/dL 07/22/2025 5:07 AM EDT [facility] RED CELL DISTRIBUTION WIDTH, RDW 13.6 12.0 - 14.8 % 07/22/2025 5:07 AM EDT [facility] PLATELET COUNT 157 150 - 450 10*3/uL 07/22/2025 5:07 AM EDT [facility] MEAN PLATELET VOLUME, MPV 8.8 6.6 - 10.1 fL 07/22/2025 5:07 AM EDT [facility] NEUTROPHILS, % 72.3 . % 07/22/2025 5:07 AM EDT [facility] LYMPHOCYTES, % 16.8 . % 07/22/2025 5:07 AM EDT [facility] MONOCYTE/MACROPHA GE, % 8.3 . % 07/22/2025 5:07 AM EDT [facility] EOSINOPHILS, % 2.2 . % 07/22/2025 5:07 AM EDT [facility] BASOPHILS, % 0.4 . % 07/22/2025 5:07 AM EDT [facility] NRBC 0.1 0 - 0.5 /100{WBC} 07/22/2025 5:07 AM EDT [facility] NEUTROPHILS 5.0 1.8 - 7.7 10*3/uL 07/22/2025 5:07 AM EDT [facility] LYMPHOCYTES 1.2 1.00 - 4.8 10*3/uL 07/22/2025 5:07 AM EDT [facility] MONOCYTES 0.6 0.0 - 0.8 10*3/uL 07/22/2025 5:07 AM EDT [facility] EOSINOPHILS 0.1 0.0 - 0.45 10*3/uL 07/22/2025 5:07 AM EDT [facility] BASOPHILS 0.0 0.0 - 0.2 10*3/uL 07/22/2025 5:07 AM EDT [facility] Blood (Blood) 07/22/2025 4:4 5 AM EDT 07/22/2025 4:55 AM EDT Win Santillan DO LAB BLOOD ORDERABLES Final Resu lt Performing Organization Address City/State/[facility] Co de Phone Number [facility] [address] [place] [address], [facility] [address] [place] [address] documented in this encounter Visit Diagnoses Not on filedocumented in this encounter Care Teams Form Stripper Relationship Specialty Start Date End Date Edwin Medina MD [address] [place] [address] PCP - General Family Medicine 11/26/24 documented as of this encounter
--- OUTSIDE RECORDS SUMMARY | 2025-07-30 07:24 | XMS_ITS | CCD ---
Author Organization [facility] Care Team Providers Care R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 Name Role Phone Jada Rene Unavailable Unavailable Primary Care Provider UnavailEdwin Fletcher Primary Care Physician Irene COHN, Nathaniel Longo Attending Unavailable Edwin Garcia MD Primary Care Provider [phone] Edwin Garcia Attending Unavailable Edwin Garcia Admitting [...] HERNÁNDEZ, AXEL T Attending Unavailable EDWIN GARCIA Referring Unavailable HERNÁNDEZ, AXEL T Attending [...] Garcia Attending Unavailable Edwin Garcia Attending Unavailable MoDavie christian Attending Unavailable Edwin Garcia Referring Unavailable Davie Vargas Attending Unavailable NONE, XXXX Referring Unavailable Kirnus, Kashif D Admitting Unavailable Kirnus, Kashif D Attending Unavailable Jules STUDENT OUTREACH COORDINATOR - VISITOR SERVICES TECHNICIANJaden Primary Care Provider Edwin Garcia Referring Unavailable LALITHA Dubose Admitting Unavailable LALITHA Dubose Attending Unavailable AVASTHFLACO Bansal Attending Unavailable AVASTHRolf FLACO Admitting Unavailable JADEN MARAVILLA Primary Care Unavailable KAYE BARNETT Referring Unavailable BRIGIDA PINA Consulting Unavailable ROBERTO GOOD Consulting Unavailable CICI DUMONT Consulting Unavailable REYES, YANIQUE A Attending Unavailable REYES YANIQUE A Admitting Unavailable REYES, YANIQUE A [...] Admitting Unavailable MD Edwin Garcia Attending Unavailable Reyes STUDENT OUTREACH COORDINATOR-Yanique QUAN Primary Care Provider YANIQUE MCNEILL A Attending Unavailable Jules Jaden L Attending Unavailable REYES, YANIQUE A Attending Unavailable REYES, YANIQUE A Attending Unavailable REYES, YANIQUE A Admitting Unavailable REYES, YANIQUE A Attending Unavailable REYES, YANIQUE A Attending Unavailable REYES, YANIQUE A Admitting Unavailable REYES, YANIQUE A Admitting Unavailable REYES, YANIQUE A Admitting Unavailable Reyes EXHAUST MACHINE OPERATOR-BC, Yanique A Primary Care Provider Billy COHN, Thalia Admit Provider Billy COHN, Thalia Other Provider Dev Archuleta DO Other Provider [phone] Duy COHN, [place] Other Provider Win Santillan DO Other Provider Leila COHN, Axel Attending Provider [phone] Axel Dee MD Other Provider Thalia Cervantes Attending Unavailable Reyes, Yanique A Primary Care Unavailable Axel Dee Consulting Unavailable Thalia Cervantes Admitting Unavailable Blossom Oleary Consulting Unavailable Zechariah Crews Consulting Unavailable Varsha Dela Cruz Consulting Unavailable Chau Márquez Consulting Unavailable Blossom Bee Consulting Unavailable Rajan Aggarwal Consulting Unavailable Nkyudith-AmSilvestre romeo Consulting Unavail able Preethi Mena Consulting Unavailable Melissa Corbett Consulting Unavailable Dev Archuleta Consulting Unavailable Darien Gordillo Consulting Unavailable Win Santillan Consulting Unavailable Edwin Garcia Admitting Unavailable Edwin Garcia Attending Unavailable REYES, YANIQUE A Attending Unavailable REYES, YANIQUE A Attending Unavailable Edwin Garcia Attending Unavailable REYES, YANIQUE A Attending Unavailable REYES, YANIQUE A Admitting Unavailable REYES, GARAGE DOOR SERVICE TECHNICIAN YANIQUE A Admitting UnavailZechariah Little Attending Unavailable REYES, GARAGE DOOR SERVICE TECHNICIAN YANIQUE A Attending Unavailrogerio e Allergies Allergy Classification Reported Allergen(s) Allergy Type Date of Onset Reaction(s) Facility (12 sources) No Known Medication Allergies; Translations: [No Known Medication Allergies] Propensity to adverse reactions (disorder) [facility] Repository Medications Current Medications Medication Drug [...] every four hours as needed for pain [place] 325 mg-5 mg oral tablet See Instructions, for pain, 10 tab(s), Refill(s) 0, 1 tab(s) Oral q4hr PRN Pain. Duration 7 days., [facility]/pharmacy #[id number], 180.5, cm, 03/20/24 15:05:00 EDT, Height/Length Dosing, 82.5, kg, 03/20/24 15:05:00 EDT, Weight Dosing Start Date: 03/20/24 Status: Ordered End: 11-26-2024 HYDROcodone-acetaminophen (N orco) 5-325 MG tablet 11/26/2024 Discontinued (Therapy completed) amoxicillin 500 mg / clavulanate 125 mg oral tablet (1 source) Penicillin-class Antibacterial Start: 07-23-2025 take 1 tablet by mouth three times daily apixaban 5 mg oral tablet (4 sources) Factor Xa Inhibitor Start: 07-19-2025 take 1 tablet by mouth once daily Apixaban (Eliquis) 5 mg tablet Active 5 MG PO Daily July 19, 2025 12:00am Complies with drug therapy Start: 06-22-2025 End: 07-23-2025 take 1 tablet by mouth in the morning, then take 1 tablet by mouth at bedtime apixaban (ELIQUIS) 5 mg tablet Take 1 tablet (5 mg total) by mouth in the morning and 1 tablet (5 mg total) before bedtime. Do all this for 30 days. 60 tablet 06/23/2025 07/23/2025 Active aspirin 81 mg delayed release oral tablet (4 sources) Platelet Aggregation Inhibitor, Nonsteroidal Anti-inflammatory Drug Start: 07-19-2025 take 1 tablet by mouth once daily Aspirin 81 mg tablet,delayed release (DR/EC) Active 81 MG PO Daily July 19, 2025 12:00am Complies with drug therapy Start: 08-10-2005 take 1 tablet by alyssa th once daily ASPIRIN 81 MG ORAL TAB Take one (1) tablet daily . 0 08/10/2005 Active take 1 tablet by alyssa th in the morning aspirin 81 mg Take 1 tablet (81 mg total) by mouth in the morning. Suspended Comment on above: Take one (1) tablet daily . atenolol 25 mg oral tablet (20 sources) beta-Adrenergic Chema Start: 07-19-2025 Atenolol 25 mg tablet Active 12.5 MG PO Daily July 19, 2025 12:00am Complies with drug therapy Start: 06-19-2025 End: 06-21-2025 take 12.5 mg by mouth once daily 12.5 mg, oral, Daily, First dose on Tue06/19/25 at 0915 Start: 06-02-2025 take 25 mg [...] daily, # 90 tab(s), Refills(s) 1, Pharmacy: [facility], 178, cm, 09/10/24 13:01:00 EDT, Height/Length Dosing, 80.1, kg, 09/10/24 13:01:00 EDT, Weight Dosing Start Date: 10/22/24 Status: Ordered Quantity: 90.0 Unit: tab(s) Repeat number: 2 Start: 04-20-2024 atenolol 25 mg Tab See Instructions, take 1/2 tab daily, # 30 tab(s), Refills(s) 5, Pharmacy: [facility]/pharmacy #[id number], 180, cm, 04/20/24 13:27:00 EDT, Height/Length Dosing, 82.2, kg, 04/20/24 13:27:00 EDT, Weight Dosing Start Date: 04/20/24 Status: Ordered Start: 10-06-2015 End: 06-22-2025 take 25 mg by mouth once daily 25 mg, oral, Daily, Fir st dose on 06/22/25 at 0930, Hold if systolic BP take 1 tablet by alyssa th every twelve hours Atenolol 25 MG 1 tablet Orally twice a day for 90 days Active Comment on above: TAKE 1 TABLET ONE TI ME DAILY benzonatate 200 mg oral capsule (10 sources) Non-narcotic Antitussive End: take 1 capsule by mouth three times daily benzonatate (Tessalon) 200 MG capsule Take 1 capsule 3 times a day by oral route. 11/26/2024 Discontinued (Therapy completed) 100 ml calcium gluconate 20 mg/ml injection (1 source) Start: take 4-4.3 mg intravenously every hour as [...] % 100 mL IVPB (1 source) Start: take 3.5-3.9 mg intravenously every hour as [...] % 250 mL IVPB (1 source) Start: take 3.4 mg intravenously every hour as needed 4,000 mg, intravenous, at 72.5 mL/hr, Administer over 4 Hours, As needed, ionized calcium 3.4 mg/dL or less, Starting on 06/22/25 at 1115, IV administration of calcium via a central or deep vein is preferred. Avoid administration in small hand veins. VESICANT (RED) cephalexin 500 mg oral capsule (12 sources) Cephalosporin Antibacterial Start: End: take 1 capsule by mouth every eight [...] Ordered diclofenac sodium 0.01 mg/mg topical gel (15 sources) Nonsteroidal Anti-inflammatory Drug diclofenac sodium (Voltaren) 1 % gel APPLY 1/2 inchTO THE AFFECTED AREA(S) BY TOPICAL ROUTE BID Active finasteride 5 mg oral tablet (20 sources) 5-alpha Reductase Inhibitor Start: 10-09-20 take 1 tablet by mouth once daily Finasteride 5 mg tablet Active 5 MG PO Daily July 19, 2025 12:00am Complies with drug therapy Comment on above: Take 1 tablet by alyssa th once daily. fluticasone propionate 0.05 mg/actuat metered dose nasal spray (14 sources) Corticosteroid Start: 08-31-20 fluticasone Nasal 0.05 mg/inh [place] See Instructions, 48 mL, Refill(s) 1, USE 1 SPRAY IN EACH NOSTRIL TWICE A DAY, [id number], 178, cm, 08/28/24 14:50:00 EDT, Height/Length Dosing, 82.2, kg, 08/28/24 14:50:00 EDT, Weight Dosing Start Date: 08/31/24 Status: Ordered Start: 07-03-2024 take 1 spray(s) nasa l route twice daily Flonase 0.05 mg/inh [place] 1 spray(s), Nasal, BID, 16 gram, Refill(s) 0, each nostril, [facility]/pharmacy #[id number], 178, cm, 07/03/24 10:05:00 EDT, Height/Length Dosing, 80.8, kg, 07/03/24 10:05:00 EDT, Weight Dosing Start Date: 07/03/24 Status: Ordered End: 11-26-2024 take 1 spray(s) nasal route once daily at bedtime fluticasone (Flonase) 50 MCG/ACT nasal spray USE 1 SPRAY(S) IN EACH NOSTRIL ONCE DAILY AT BEDTIME 11/26/2024 Discontinued (Therapy completed) gabapentin 300 mg oral capsule (20 sources) Anti-epileptic Agent Start: 07-19-2025 take 1 capsule by mouth once daily Gabapentin 300 mg capsule Active 300 MG PO Daily July 19, 2025 12:00am Complies with drug therapy Start: 12-01-2023 End: 06-21-2025 take 300 mg by mouth once daily 300 mg, oral, Daily, First dose on Tue06/18/25 at 0900, Look-alike/sound-alike medication - verify indication for use. glimepiride 2 mg oral tablet (20 sources) Sulfonylurea Start: 10-14-2014 take 1 tablet by mouth once daily Glimepiride 2 mg tablet Active 2 MG PO Daily July 19, 2025 12:00am Complies with drug therapy Comment on above: Take 1 tablet by alyssa th once daily. 50 ml glucose 500 mg/ml [...] 5 mg/minute. hydroCHLOROthiazide 25 mg oral tablet (15 sources) Thiazide Diuretic take 1 tablet by [...] mg oral tablet (20 sources) l-Thyroxine Start: 07-19-2025 take 1 tablet by mouth once daily Levothyroxine 25 mcg tablet Active 25 MCG PO Daily July 19, 2025 12:00am Complies with drug therapy Start: 06-02-2025 take 25 ug by mouth [...] STOMACH, # 90 tab(s), Refills(s) 1, Pharmacy: [id number], 178.6, cm, 02/05/25 13:36:00 EDT, Height/Length Dosing, 82.2, kg, 02/05/25 13:36:00 EDT, Weight Dosing Start Date: 03/07/25 Status: Ordered Quantity: 90.0 Unit: tab(s) Repeat number: 1 Start: 08-20-2024 Synthroid 25 m cg(0.025 mg) Tab See Instructions, TAKE 1 TABLET DAILY ON AN EMPTY STOMACH, # 3 tab(s), Refills(s) 0, Pharmacy: [facility]/pharmacy #[id number], 178, cm, 08/07/24 10:59:00 EDT, Height/Length Dosing, 78.2, kg, 08/07/24 10:59:00 EDT, Weight Dosing Start Date: 08/20/24 Status: Ordered Quantity: 3.0 Unit: tab(s) Repeat number: 1 Start: 02-13-2024 take 1 tablet by alyssa th once daily levothyroxine 25 mcg (0.025 mg) Tab 25 mcg = 1 tab(s), Oral, Daily, on an empty stomach, # 90 tab(s), Refills(s) 1, Pharmacy: [facility], 178.2, cm, 02/02/24 10:29:00 EDT, Height/Length Dosing, 84.1, kg, 02/02/24 10:29:00 EDT, Weight Dosing Start Date: 02/13/24 Status: Ordered Start: 02-13-2024 Synthroid 25 M CG tablet 02/13/2024 Active Start: 02-13-2024 Synthroid 25 M CG tablet [...] mg/mL premix) (1 source) Start: 06-17-2025 magnesium sulf ate IVPB 2000 mg/50 mL in iso-osmotic water (40 mg/mL premix) meloxicam 7.5 mg oral tablet (20 sources) Nonsteroidal Anti-inflammatory Drug Start: 07-19-2025 take 1 tablet by mouth once daily Meloxicam 7.5 mg tablet Active 7.5 MG PO Daily July 19, 2025 12:00am Complies with drug therapy Start: 04-25-2025 take 1 tablet by alyssa once daily meloxicam 7.5 mg Tab 7.5 mg = 1 tab(s), Oral, Daily, TAKE 1 TABLET DAILY, # 30 tab(s), Refills(s) 2, Pharmacy: [facility], 178.6, cm, 02/05/25 13:36:00 EDT, Height/Length Dosing, 82.2, kg, 02/05/25 13:36:00 EDT, Weight Dosing Start Date: 04/25/25 Status: Ordered Quantity: 30.0 Unit: tab(s) Repeat number: 3 Start: 01-07-2025 take 1 tablet by alyssa th once daily meloxicam 7.5 mg Tab 7.5 mg = 1 tab(s), Oral, Daily, TAKE 1 TABLET DAILY, # 30 tab(s), Refills(s) 2, Pharmacy: [facility], 178.6, cm, 12/24/24 13:13:00 EST, Height/Length Dosing, 79, kg, 12/24/24 13:13:00 EST, Weight Dosing Start Date: 01/07/25 Status: Ordered Quantity: 30.0 Unit: tab(s) Repeat number: 3 Start: 12-06-2024 take 1 tablet by alyssa th once daily meloxicam 7.5 mg Tab 7.5 mg = 1 tab(s), Oral, Daily, TAKE 1 TABLET DAILY, # 30 tab(s), Refills(s) 2, Pharmacy: [facility], 178.6, cm, 11/01/24 9:21:00 EST, Height/Length Dosing, 81.3, kg, 11/01/24 9:21:00 EST, Weight Dosing Start Date: 12/06/24 Status: Ordered Start: 12-01-2023 take 1 tablet by alyssa th once daily as needed meloxicam 15 mg Tab 15 mg = 1 tab(s), Oral, Daily, as needed, Refills(s) 0 Start Date: 12/01/23 Status: Ordered methocarbamol 750 mg oral tablet (11 sources) Muscle Relaxant Start: 07-15-2024 take 1 [...] (KLOR-CON M) extended release tablet 40 mEq pravastatin sodium 40 mg oral tablet (20 sources) HMG-CoA Reductase Inhibitor Start: 06-02-2025 take 40 mg by mouth once daily 40 mg, Oral, DAILY, First dose on Tue06/02/25 at 1415, Until Discontinued Start: 10-09-2014 take 1 tablet by alyssa th once daily Pravastatin 40 mg tablet Active 40 MG PO Daily July 19, 2025 12:00am Complies with drug therapy pravastatin (Pra vachol) 20 MG tablet Active Comment on above: Take 1 tablet by alyssa th daily at bedtime. rosuvastatin calcium 5 mg oral tablet (1 source) HMG-CoA Reductase Inhibitor Start: 06-19-20 take 5 mg by mouth once daily 5 mg, oral, Nightly, First dose on Tue06/19/25 at 2200, Look-alike/sound-a like medication - verify indication for use. sildenafil 100 mg oral tablet (20 sources) Phosphodiesterase 5 Inhibitor Start: 02-02-20 End: 06-05-20 take 1 tablet by mouth once daily as needed sildenafil 100 mg Tab 100 mg = 1 tab(s), Oral, Daily, PRN for erectile dysfunction, 1 hour before sexual activity, # 5 tab(s), Refills(s) 0, Pharmacy: [facility], 178, cm, 07/03/24 10:05:00 EDT, Height/Length Dosing, 80.8, kg, 07/03/24 10:05:00 EDT, Weight Dosing Start Date: 07/03/24 Status: Ordered Quantity: 5.0 Unit: tab(s) Repeat number: 1 take 1 tablet by alyssa th once daily as needed sildenafil (Viagra) 50 MG tablet TAKE 1 TABLET BY MOUTH ONCE DAILY NEEDED FOR INTERCOURSE FOR 14 DAYS Active sodium chloride 1000 mg oral tablet (20 sources) Start: 07-19-2025 take 1 tablet by mouth twice daily Sodium Chloride 1,000 mg tablet,soluble Active 1000 MG PO Twice daily July 19, 2025 12:00am Complies with drug therapy Start: 06-19-2025 End: 06-20-2025 take 1000 mg by mouth twice daily 1,000 mg, oral, 2 ti mes daily, First dose on Tue06/19/25 at 0915 [...] (2 times per day), First dose on [place] 06/02/25 at 2100, Until Discontinued, For Line [...] Central Line = 20 mL/lumen Start: 06-02-2025 take 2 spray(s) nasa l route every four hours 2 spray, Each Nostril, EVERY 4 HOURS, First dose (after last modification) on [place] 06/02/25 at 1415, Until Discontinued Start: 06-02-2025 IntraVENous, a t 5-250 mL/hr, PRN, if patient receiving piggyback infusions and maintenance fluids are not ordered, Starting on [place] 06/02/25 at 1205, For piggyback infusion, administer [...] needed 10 mL, IntraVENous, PRN, Starting on [place] 06/02/25 at 1205, Until Discontinued, Line Care, After every IV line use Start: 05-14-2025 End: 06-05-2025 take 1000 mg by mouth three times daily 1,000 mg, oral, 3 times daily around food, First dose (after last modification) on [facility] 06/20/25 at 1700 Start: 05-14-2025 Sodium Chlorid e 1 g oral tablet See Instructions, Take 1g BID daily, # 180 tab(s), Refills(s) 0, Pharmacy: [facility]/pharmacy #[id number], 178.6, cm, 05/09/25 8:18:00 EDT, Height/Length Dosing, 80.6, kg, 06/26/25 8:18:00 EDT, Weight Dosing Start Date: 05/14/25 Status: Ordered Quantity: 180.0 Unit: tab(s) Repeat number: 1 Start: 02-06-2025 Sodium Chlorid e 1 g oral tablet See Instructions, Take 1g BID daily, # 60 tab(s), Refills(s) 3, [id number] 178.6, cm, 02/05/25 13:36:00 EDT, Height/Length Dosing, 82.2, kg, 02/05/25 13:36:00 EDT, Weight Dosing Start Date: 02/06/25 Status: Ordered Quantity: 60.0 Unit: tab(s) Repeat number: 4 Start: 01-24-2025 take 1 tablet by alyssa th twice daily Sodium Chloride 1 g oral tablet See Instructions, 1 gram orally BID, # 180 tab(s), Refills(s) 0, Pharmacy: [facility], 178.6, cm, 01/24/25 13:29:00 EDT, Height/Length Dosing, 82.7, kg, 01/24/25 13:29:00 EDT, Weight Dosing Start Date: 01/24/25 Status: Ordered Start: 01-07-2025 take 1 tablet by mouth once da rasta Sodium Chloride 1 g oral tablet See Instructions, 1 gram orally daily, # 90 tab(s), Refills(s) 0, [id number] 178.6, cm, 12/24/24 13:13:00 EST, Height/Length Dosing, 79, kg, 12/24/24 13:13:00 EST, Weight Dosing Start Date: 01/07/25 Status: Ordered Start: 12-26-2024 take 1 tablet by mouth once da rasta Sodium Chloride 1 g oral tablet See Instructions, 1 gram orally daily, # 90 tab(s), Refills(s) 0, Pharmacy: [facility], 178.6, cm, 12/24/24 13:13:00 EST, Height/Length Dosing, 79, kg, 12/24/24 13:13:00 EST, Weight Dosing Start Date: 12/26/24 Status: Ordered Start: 12-17-2024 take 1 tablet by mouth once da rasta Sodium Chloride 1 g oral tablet See Instructions, 1 gram orally daily, # 90 tab(s), Refills(s) 0, Pharmacy: [facility], 178.6, cm, 12/17/24 15:05:00 EST, Height/Length Dosing, 78.5, kg, 12/17/24 15:05:00 EST, Weight Dosing Start Date: 12/17/24 Status: Ordered Start: 06-27-2024 take 1 tablet by mouth once da rasta Sodium Chloride 1 g oral tablet See Instructions, 1 gram orally daily, # 90 tab(s), Refills(s) 0, [id number] 178, cm, 06/11/24 12:53:00 [...] DAY, # 90 tab(s), Refills(s) 2, [id number] 180.5, cm, 03/20/24 15:05:00 EDT, Height/Length Dosing, 82.5, kg, 03/20/24 15:05:00 EDT, Weight Dosing Start Date: 04/05/24 Status: Ordered Start: 12-29-2023 End: 06-03-2025 take 1 tablet by mouth in the morning sodium chloride 1 g tablet Take 1 g by mouth in the morning and 1 g before bedtime. 12/29/2023 Active Start: 12-23-2023 take 1 tablet by alyssa th twice daily Sodium Chloride 1 g oral tablet See Instructions, TAKE 1 TABLET BY MOUTH TWICE DAY, # 90 tab(s), Refills(s) 2, Pharmacy: [facility], 178.2, cm, 12/01/23 13:40:00 EST, Height/Length Dosing, 85.5, kg, 12/01/23 13:40:00 EST, Weight Dosing Start Date: 12/23/23 Status: Ordered Sodium Chloride 1000 mg oral tablet, soluble (1 source) Start: 11-13-2024 take 1 tablet by mouth once daily Sodium Chloride 1000 mg oral tablet, soluble See Instructions, 30 tab(s), Refill(s) 0, Take one tablet daily, [facility] #[id number], 178.6, cm, 11/01/24 9:21:00 EST, Height/Length [...] dysfunction, # 7 tab(s), Refills(s) 0, Pharmacy: [facility]acy #[id number], 178.6, cm, 02/05/25 13:36:00 EDT, Height/Length [...] mouth daily 30 each 2 06/05/2025 Active Urea (Ure-Na) 15 gram powder in packet (1 source) Start: 07-19-2025 Urea (Ure-Na) 15 gram powder in packet Active 1 PACKET PO Daily July 19, 2025 12:00am Complies with drug therapy urea (URE-NA) packet 15 g (2 sources) [...] Drug Class(es) Dates Sig (Normalized) Sig (Original) b complex vitamins capsule (1 source) take 1 capsule by mouth once daily b complex vitamins capsule Take 1 capsule by mouth daily Suspended Blood-Glucose Meter (CONTOUR METER) monitoring kit (1 source) Start: 2 Blood-Glucose Meter (CONTOUR METER) monitoring kit Indications: Type II or unspecified type diabetes mellitus without mention of complication, not stated as uncontrolled Testing twice daily 1 Each 0 08/23/2012 Active Comment on above: Testing twice daily cyclobenzaprine hydrochloride 10 mg oral tablet (1 source) Muscle Relaxant End: 5 take 1 tablet by mouth three times daily as needed for muscle spasms cyclobenzaprine (FLEXERIL) 10 MG tablet Take 1 tablet by mouth 3 times daily as needed for Muscle spasms 06/05/2025 Discontinued (Stop Taking at Discharge) dabigatran etexilate 150 mg oral capsule (16 sources) Start: 4 take 1 capsule by mouth twice daily dabigatran etexilate (PRADAXA) 150 mg cap Indications: Atrial fibrillation (HCC) Take 1 capsule by mouth twice daily. 180 capsule 3 10/09/2014 Active Comment on above: Take 1 capsule by mo ut twice daily. glipiZIDE 5 mg oral tablet (1 source) Sulfonylurea Start: 5 5 mg, Oral, DAILY BEFORE BREAKFAST, First dose on Tue06/03/25 at 0700, Until Discontinued, Substituted for glimepiride (AMARYL). glucagon (rdna) 1 mg injection (3 sources) Antihypoglycemic Agent Start: 5 End: 5 inject 1 mg by intramuscular injection once 1 mg, intramuscular, Once, On 06/22/25 at 1530, For 1 dose Start: 06-17-2025 [...] for injection by adding 1 mL of director of rehabilitation-supplied sterile diluent or sterile water for injection [...] volume of compatible solution (NS or D5W). omeprazole 40 mg delayed release oral capsule (20 sources) Proton Pump Inhibitor Start: 12-01-2023 take 1 capsule by mouth once daily before breakfast omeprazole (PriLOSEC) 40 mg capsule Take 1 capsule (40 mg total) by mouth every morning before breakfast. 01/07/2025 take 2 capsules by mouth once da rasta omeprazole (PRILOSEC) 20 MG delayed release capsule Take 2 capsules by mouth daily Suspended polyethylene glycol 3350 36350 mg powder for oral solution (1 source) Osmotic Laxative Start: 06-02-2025 17 g, Oral, DAILY PRN, Starting on Tue06/02/25 at 1205, Until Discontinued, Constipation, First line therapy for constipation tamsulosin hydrochloride 0.4 mg oral capsule (20 sources) alpha-Adrenergi c Chema Start: 10-14-2014 take 0.4 mg by mouth once daily at mealtime 0.4 mg, Oral, DAILY, First dose on Tue06/02/25 at 1415, Until Discontinued, Do not crush or break. Give 30 minutes after a full meal to limit risk of orthostatic hypotension/falls. Comment on above: Take 1 capsule by [facility] daily at bedtime. tolvaptan (SAMSCA) [...] (3 sources) take 1 capsule by mo [facility] in the morning coenzyme [id number] 100-5 mg-unit capsule Take 100 mg [...] Problem Date Documented Date Episodic/Chronic Abdominal hernia (14 sources) Inguinal hernia; Translations: [Unilateral inguinal hernia, without obstruction or gangrene, not specified as recurrent] Onset: 4 Episodic Abdominal pain (3 sources) Lower abdominal pain; Translations: [Lower abdominal pain, unspecified] Onset: 5 07-20-2025 Episodic Acute cerebrovascular disease (4 sources) Thrombotic [...] Coronary atherosclerosis; Translations: [Atherosclerotic heart disease of [place] coronary artery without angina pectoris] Onset: 4 Chronic Crushing injury or internal injury (3 sources) Splenic hematoma; Translations: [Unspecified contusion of spleen, initial encounter] Onset: 5 07-20-2025 Episodic Diabetes mellitus without complication (20 sources) Type 2 diabetes mellitus; Translations: [Type 2 diabetes mellitus without complications] Onset: 5 Chronic Disorders of lipid metabolism (19 sources) Hyperlipidemia; Translations: [Hyperlipidemia, unspecified] 03-02-2006 Chronic Diverticulosis and diverticulitis (3 sources) Diverticulitis of gastrointestinal tract; Translations: [Diverticulitis of intestine, part unspecified, without perforation or abscess without bleeding] Onset: 5 07-19-2025 Chronic E Codes: Fall (11 sources) Fall in home 03-20-2024 Essential hypertension (10 sources) Benign hypertension; Translations: [Essential (primary) hypertension] [...] Episodic Occlusion or stenosis of precerebral arteries (9 sources) Carotid artery occlusion; Translations: [Occlusion and stenosis of unspecified carotid artery] Onset: 5 11-26-2024 Chronic Open wounds of head; neck; and trunk (4 sources) Laceration of head 03-20-2024 Episodic Osteoarthritis (20 sources) Degenerative joint disease involving multiple joints; Translations: [Polyosteoarthritis, unspecified] Onset: 2 09-12-2012 Chronic Other aftercare (14 sources) Long-term current use of anticoagulant; Translations: [terminologist (current) use of anticoagulants] Episodic Other aftercare (3 sources) terminologist (current) use of anticoagulants Episodic Other aftercare (1 source) Post-discharge follow-up 12-17-2024 Episodic Other aftercare (2 sources) Anticoagulant effect; Translations: [terminologist (current) use of anticoagulants] Onset: 5 06-02-2025 [...] involving the musculoskeletal system] 10-01-2024 Episodic Other diseases of kidney and ureters (1 source) Other obstructive and reflux uropathy; Translations: [Other obstructive and reflux uropathy] Onset: Episodic Other ear and sense organ disorders (20 sources) Hearing loss; Translations: [Unspecified hearing loss, unspecified ear] Onset: 5 05-03-2024 Chronic Other ear and sense organ disorders (1 source) Unspecified hearing loss, unspecified ear Chronic Other endocrine disorders (2 sources) Syndrome of inappropriate vasopressin secretion; Translations: [Syndrome of inappropriate secretion of antidiuretic hormone] Onset: 5 06-05-2025 Chronic Other hematologic conditions (2 sources) Splenic infarction; 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] 07-20-2025 Episodic Other hematologic conditions (1 source) Infarction of spleen; 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] Onset: 5 Episodic Other injuries and conditions due to external causes (2 sources) Foreign body in right ear; Translations: [Foreign body in right ear, initial encounter] 11-26-2024 Episodic Other male genital disorders (13 sources) Impotence; Translations: [Male erectile dysfunction, unspecified] Onset: 5 02-02-2024 Chronic Other male genital disorders (20 sources) Erectile dysfunction co-occurrent and due to [...] conditions (not mental disorders or infectious disease) (12 sources) Encounter for screening for malignant neoplasm of prostate; Translations: [Melanocytic nevus of skin ] Onset: 5 Episodic Other upper respiratory disease (2 sources) Bleeding from nose; Translations: [Epistaxis] Onset: 5 06-02-2025 Episodic Otitis media and related conditions (5 sources) Serous otitis media 07-03-2024 Episodic Peripheral and visceral atherosclerosis (20 sources) Arteriosclerotic vascular disease; Translations: [Atherosclerotic heart disease of [place] coronary artery without angina pectoris] Onset: 5 12-01-2023 Chronic Septicemia (except in labor) (3 sources) Sepsis; Translations: [Sepsis, unspecified organism] Onset: 5 07-19-2025 Episodic Skull and face fractures (2 sources) Closed fracture of nasal bones; Translations: [Fracture of nasal bones, initial encounter for closed fracture] Onset: 5 06-02-2025 Episodic Spondylosis; intervertebral disc disorders; other back problems (10 sources) Intervertebral disc disorder of cervical region with myelopathy; Translations: [Cervical disc disorder with myelopathy, unspecified cervical region] Onset: 1 11-09-2021 Chronic Syncope (20 sources) Syncope and collapse; Translations: [Syncope] Onset: 4 Episodic Thyroid disorders (20 sources) Hypothyroidism; Translations: [Hypothyroidism, unspecified] Onset: 5 Chronic Unclassified (1 source) Body mass index 20-24 - normal 12-17-2024 Unclassified (6 sources) Non-smoker 12-17-2024 Unclassified (2 sources) As needed Unclassified (1 source) The office is aware of your hospital stay and need for follow up, the office will call you to schedule. Please call the office if you have not heard from them by the next day. Unclassified (1 source) You have been scheduled for a follow up appointment for the following date and time, please call to reschedule if needed. Past or Other Problems Problem Classification Problem Date Documented Da te Episodic/Chronic E Codes: Fall (8 sources) Fall in home; Translations: [Unspecified fall, initial encounter] Onset: 11-26-2024 11-26-2024 Episodic Mood disorders (1 source) Mood disorders Onset: 06-17-2025 06-17-2025 Other nutritional; endocrine; and metabolic disorders (20 sources) Overweight in adulthood with body mass index of 25 or more but less than 30; Translations: [Body mass index (BMI) 25.0-25.9, adult] Onset: 11-26-2024 03-08-2024 Episodic Spondylosis; intervertebral disc disorders; other back problems (18 sources) Spasm of back muscles; Translations: [Muscle spasm of back] Onset: 11-26-2024 07-24-2024 Episodic Results Test Name Value Interpretation Reference Range Facility Ambulatory Visit Summaryon 0 07-25-2025 Ambulatory Visit Summary Ambulatory Visit Summary DARIEL ZABALA :1940 Visit Date:07/25/2025 Ambulatory Visit Instructions Your Diagnosis Diverticulitis Hospital discharge follow-up Your Care Team Attending Physician - YANIQUE MCNEILL CNP Primary Care Physician - YANIQUE MCNEILL CNP This Is Your Medications List Non-Formulary Medication (Ure-Na) apixaban (Eliquis 5 mg oral tablet) aspirin (aspirin 81 mg Oral EC Tab) atenolol (atenolol 25 mg Tab) finasteride (finasteride 5 mg Tab) gabapentin (gabapentin 300 mg Cap) glimepiride (glimepiride 2 mg Tab) levothyroxine (levothyroxine 25 mcg (0.025 mg) Tab) meloxicam (meloxicam 7.5 mg Tab) pravastatin (pravastatin 40 mg Tab) Contact prescribing physician if questions or concerns amoxicillin-clavulan ate (amoxicillin-clavula cruz 500 mg-125 mg Tab) cholecalciferol (D3) cyanocobalamin (Vitamin B12) lisinopril (lisinopril 10 mg Tab) [Image Removed: STOP]Stop taking these medications Turmeric (Turmeric 500 mg oral capsule) midodrine (midodrine 5 mg Tab) omeprazole (omeprazole 40 mg Cap-DR) tadalafil (Cialis 2.5 mg oral tablet) tamsulosin (tamsulosin 0.4 mg Cap) ubiquinone (ubiquinone 100 mg oral capsule) warfarin (warfarin 5 mg Tab) Procedures Performed Carpal tunnel release (11/19/2024), Carpal tunnel release (03/26/2024), Carpal tunnel release, Nose, Release of trigger finger, Surgery. Discharge Vitals Temperature (Oral) 36.5 ???C Heart Rate (Peripheral) 80 Respiratory Rate 18 Blood Pressure 120/70 Height 178 cm Height 70 in Weight 74.9 kg Weight 165.126 lb BMI 23.64 What to do next Scheduled Follow-Up Appointments 2024 10:00 AM EDT With: YANIQUE MCNEILL CNP Where: [address] [place] [address]- [id number] 8:00 AM EDT With: Where: [facility] [address] [id number]- Medications What How Much When Why Instructions Unchanged apixaban (Eliquis 5 mg oral tablet) 2 times a day 5 Unknown, oral, 0 Refill(s), Take 1 tablet (5 mg total) by mouth in the morning and 1 tablet (5 mg total) before bedtime. Do all this for 30 days. Unchanged aspirin (aspirin 81 mg Oral EC Tab) 81 Unknown, oral, 0 Refill(s), Take 1 tablet (81 mg total) by mouth in the morning. Unchanged atenolol (atenolol 25 mg Tab) See instructions take 1/ 2 tab daily Unchanged finasteride (finasteride 5 mg Tab) 1 [...] Every day TAKE 1 TABLET DAILY Unchanged Non-Formulary Medication (Ure-Na) See instructions Hyponatremia DM type 2 causing vascular disease BMI 23.0-23.9, adult Nonsmoker Natural Lemon [place] flavor Unchanged pravastatin (pravastatin 40 mg Tab) 1 Tablets By Mouth Every day Unchanged amoxicillin-clavulan ate (amoxicillin-clavula cruz 500 mg-125 mg Tab) 30 tab(s), 0 Refill(s) Contact prescribing physician if questions or concerns Unchanged cholecalciferol (D3) See instructions Oral Daily- patient states he takes 500 once a day Contact prescribing physician if questions or concerns Unchanged cyanocobalamin (Vitamin B12) 50 Microgram By Mouth Every day as needed for Prophylaxis Contact prescribing physician if questions or concerns Unchanged lisinopril (lisinopril 10 mg Tab) Contact prescribing physician if questions or concerns What How Much When Comments Stop Taking midodrine (midodrine 5 mg Tab) 3 times a day 5 Unknown, oral, 0 Refill(s), Take 1 tablet (5 mg total) by mouth 3 (three) times a day for 30 days. Stop Taking omeprazole (omeprazole 40 mg Cap-DR) 1 Capsules By Mouth Every day Stop Taking tadalafil (Cialis 2.5 mg oral tablet) 1 Tablets By Mouth Every day as needed for for erectile dysfunction Stop Taking tamsulosin (tamsulosin 0.4 mg Cap) 1 Capsules By Mouth Every day Stop Taking Turmeric (Turmeric 500 mg oral capsule) 1 Capsules By Mouth Every day as needed for Prophylaxis Stop Taking ubiquinone (ubiquinone 100 mg oral capsule) 100 Unknown, oral, 0 Refill(s), Take 1 capsule (100 mg total) by mouth in the morning. Stop Taking warfarin (warfarin 5 mg Tab) 1 Tablets By Mouth Every day Allergies No Known Medication Allergies Problems Ongoing - Any problem that you are currently receiving treatment for. ASCVD (arteriosclerotic cardiovascular disease) Back spasm BMI 23.0-23.9, adult BMI 24.0-24.9, adult BMI 25.0-25.9,adult Carpal tunnel syndrome, left DM type 2 causing vascular disease Encounter for surveillance of abnormal nevi Erectile dysfuncti (more content not included)... Normal [facility] Family Medicine Office/Clini c Noteon 07-25-2025 Family Medicine Office/Clinic Note Family Medicine Office/Clinic Note Chief Complaint Hospital F/U The patient presents for follow-up care after hospitalization for diverticulitis and sepsis. History of Present Illness 85-year-old male presenting with his for a follow-up after hospital discharge. The patient was hospitalized from the to the for diverticulitis and sepsis, which was confirmed during his stay. He was treated with antibiotics, including amoxicillin, and discharged with a prescription for continued antibiotic therapy. During his hospitalization, the patient was noted to have a black stool, which was attributed to the antibiotics administered. He was switched from warfarin to Eliquis to manage his anticoagulation therapy. The patient has not yet received home health services, although they were ordered by [facility] to assist with gastrointestinal and genitourinary assessments, medication management, and physical and occupational therapy. He is currently on multiple medications, including aspirin, Eliquis, pravastatin, atenolol, levothyroxine, meloxicam, gabapentin, glipizide, sodium chloride tablets, and finasteride. His reports she will need to schedule f/u visits with Dr. Crews & Dr. Santillan. Review of Systems PHQ Score Initial Depression Screen Score: 0 SCORE - General: Reports feeling not great but all right. Denies significant changes in overall health status. - Gastrointestinal: Reports black stool during hospitalization, attributed to antibiotics. Denies current abdominal pain. - Cardiovascular: Denies chest pain or palpitations. - Psychological: Denies feeling down or depressed in the past 14 days. Physical Exam Vitals & Measurements T: 36.5 ???C(Oral) HR: 80(Peripheral) RR: 18 BP: 120/70 SpO2: 97% HT: 70 in HT: 178 cm WT: 165.126 lb WT: 74.9 kg BMI: 23.64 General: alert, no acute distress Skin: warm, dry Head: no trauma, normocephalic Neck: Trachea midline, no adenopathy, no tenderness Eye: normal conjunctiva, sclera clear Cardiovascular: regular rate and rhythm, normal peripheral perfusion Respiratory: Lungs CTA, respirations non labored Gastrointestinal: soft, non distended, no tenderness, no guarding. Extremities: no deformity, no trauma Neurological: oriented x 4, LOC appropriate for age speech normal Assessment/Plan 1. Diverticulitis (K57.92: Diverticulitis of intestine, part unspecified, without perforation or abscess without bleeding) - Continue antibiotic therapy as prescribed, including amoxicillin. - Monitor for signs of infection and gastrointestinal symptoms. - Schedule appointment with Dr. Santillan - F/U as scheduled on 08/09/2025 Ordered: Discharge medications reconciled with current medications in outpatient record 1111F 2. Sepsis (A41.9: Sepsis, unspecified organism) - Follow-up on home health services for monitoring and support. - Ensure adherence to prescribed medications, including Eliquis for anticoagulation. - Medication list reviewed and printed for the patient - F/U as scheduled on 08/09/2025 3. Hospital discharge follow-up (Z09: Encounter for follow-up examination after completed treatment for conditions other than malignant neoplasm) - Schedule follow-up appointments with primary care and specialists as needed. - Review and update medication list to ensure accuracy and adherence. Ordered: Discharge medications reconciled with current medications in outpatient record [id number] Total time spent preparing the chart, conducting of the encounter with the patient and family and time spent documenting, reviewing, and ordering tests was 40 minutes. Follow-up No qualifying data available Patient Education Sepsis, Diagnosis, Adult Problem List/Past Medical History Ongoing ASCVD (arteriosclerotic [...] Nose, Release of trigger finger, Surgery. Medications amoxicillin-clavulan ate 500 mg-125 mg Tab aspirin 81 mg Oral EC Tab atenolol 25 mg Tab, See Instructions, 2 refills D3, See Instructions Eliquis 5 mg oral tablet, BID finasteride 5 mg Tab, 5 mg= 1 tab(s), Oral, Daily gabapentin 300 mg Cap, 300 mg= 1 cap(s), Oral, Daily, 1 refills glimepiride 2 mg Tab, 2 mg= 1 tab(s), Oral, Daily, 1 refills levothyroxine 25 mcg (0.025 mg) Tab, See Instructions lisinopril 10 mg Tab meloxicam 7.5 mg (more content not included)... Normal [facility] Comment on above: Result Comment: Elec tronically Signed By: YANIQUE MCNEILL CNP\.claudio\Date and Time Signed: 07/25/25 11:58 EDT Glucose Poct Glucometerson 0 07-23-2025 Glucose [Mass/Vol] 137 mg/dL Normal [facility] Comment on above: Result Comment: [place] Glucose Reference Range is dependent on time and content of last meal. Glucose of more than 200 mg/dL in a nonstressed, ambulatory subject supports the diagnosis of Diabetes Mellitus. PERFORMED BY: [address] [place] [address] PATHOLOGIST DINKEY PRESS OPERATOR MARIAM WANG M.D. Performed By: #### C DT #### [facility] [address] [id number] [facility] CBC W Auto Differential pane l (Bld)on 07-22-2025 Basophils (Bld) [#/Vol] 0 10*3/uL 0.0 - 0.2 10*3/uL [facility] Basophils/100 WBC Manual cnt (Syn fld) 0.4 % . [facility] care Eosinophils (Bld) [#/Vol] 0.1 10*3/uL 0.0 - 0.45 10*3/uL [facility] Eosinophils/100 WBC Manual cnt (Syn fld) 2.2 % . [facility] Erythrocyte distribution width (RBC) [Ratio] 13.6 % 12.0 - 14.8 % [facility] Hematocrit (Bld) [Volume fraction] 32.4 % Low 38.8 - 50.0 % [facility] Hemoglobin (Bld) [Mass/Vol] 11.2 g/dL Low 13.0 - 17.0 g/dL [facility] Interpretation and review of laboratory results Abnormal [facility] Lymphocytes (Bld) [#/Vol] 1.2 10*3/uL 1.00 - 4.8 10*3/uL [facility] Lymphocytes/100 WBC Manual cnt (Syn fld) 16.8 % . [facility] MCH (RBC) [Entitic mass] 31.5 pg 27.5 - 35.2 pg [facility] MCHC (RBC) [Mass/Vol] 34.4 g/dL 32.5 - 35.6 g/dL [facility] MCV (RBC) [Entitic vol] 91.5 fL 83.5 - 101 fL [facility] Monocytes (Bld) [#/Vol] 0.6 10*3/uL 0.0 - 0.8 10*3/uL [facility] Monocytes+Macrophages /100 WBC Manual cnt (Syn fld) 8.3 % . [facility] Neutrophils (Bld) [#/Vol] 5 10*3/uL 1.8 - 7.7 10*3/uL [facility] Neutrophils/100 WBC Manual cnt (Syn fld) 72.3 % . [facility] NRBC 0.1 /100{WBC} 0 - 0.5 /100{WBC} [facility] Platelet mean volume (Bld) [Entitic vol] 8.8 fL 6.6 - 10.1 fL [facility] Platelets (Bld) [#/Vol] 157 10*3/uL 150 - 450 10*3/uL [facility] RBC LM.HPF (Urine sed) [#/Area] 3.54 10*6/uL Low 3.90 - 5.60 10*6/uL [facility] WBC (Bld) [#/Vol] 6.9 10*3/uL 4.1 - 10.5 10*3/uL [facility] WBC LM.HPF (Urine sed) [#/Area] 6.9 [CFU]/mL 4.1 - 10.5 [CFU]/mL [facility] Complete Blood Count Auto Di ffon 07-22-2025 Basophils (Bld) [#/Vol] 0.0 10*3/uL Normal 0.0-0.2 [facility] Comment on above: Result Comment: PERF ORMED BY: [place] [address] PATHOLOGIST DINKEY PRESS OPERATOR MARIAM WANG M.D. Performed By: #### C DT #### [address] Basophils/100 WBC (Bld) 0.4 % Normal . [facility] Comment on above: Performed By: #### C DT #### [place] [address] [place] Eosinophils (Bld) [#/Vol] 0.1 10*3/uL Normal 0.0-0.45 [facility] Comment on above: Performed By: #### C DT #### [place] [address] [place] Eosinophils/100 WBC (Bld) 2.2 % Normal . [facility] Comment on above: Performed By: #### C DT #### [address] Erythrocyte distribution width (RBC) [Ratio] 13.6 % Normal 12.0-14.8 [facility] Comment on above: Performed By: #### C DT #### [address] Hematocrit (Bld) [Volume fraction] 32.4 % Low 38.8-50.0 [facility] Comment on above: Performed By: #### C DT #### [address] Hemoglobin (Bld) [Mass/Vol] 11.2 g/dL Low 13.0-17.0 [facility] Comment on above: Performed By: #### C DT #### [address] Lymphocytes (Bld) [#/Vol] 1.2 10*3/uL Normal 1.00-4.8 [facility] Comment on above: Performed By: #### C DT #### [address] Lymphocytes/100 WBC (Bld) 16.8 % Normal . [facility] Comment on above: Performed By: #### C DT #### [address] MCH (RBC) [Entitic mass] 31.5 pg Normal 27.5-35.2 [facility] Comment on above: Performed By: #### C DT #### [address] MCV (RBC) [Entitic vol] 91.5 fL Normal 83.5-101 [facility] Comment on above: Performed By: #### C DT #### [address] Mean Corpuscular HGB Conc 34.4 g/dL Normal 32.5-35.6 [facility] Comment on above: Performed By: #### C DT #### [address] Monocytes (Bld) [#/Vol] 0.6 10*3/uL Normal 0.0-0.8 [facility] Comment on above: Performed By: #### C DT #### [address] Monocytes/100 WBC (Bld) 8.3 % Normal . [facility] Comment on above: Performed By: #### C DT #### [address] Neutrophils (Bld) [#/Vol] 5.0 10*3/uL Normal 1.8-7.7 [facility] Comment on above: Performed By: #### C DT #### [address] Neutrophils/100 WBC (Bld) 72.3 % Normal . [facility] Comment on above: Performed By: #### C DT #### [address] NRBC% 0.1 /100{WBC} Normal 0-0.5 [facility] Comment on above: Performed By: #### C DT #### [address] Platelet mean volume (Bld) [Entitic vol] 8.8 fL Normal 6.6-10.1 [facility] Comment on above: Performed By: #### C DT #### [address] Platelets (Bld) [#/Vol] 157 10*3/uL Normal 150-450 [facility] Comment on above: Performed By: #### C DT #### [place] [address] [place] RBC (Bld) [#/Vol] 3.54 10*6/uL Low 3.90-5.60 [facility] Comment on above: Performed By: #### C DT #### [place] [address] [place] WBC (Bld) [#/Vol] 6.9 10*3/uL Normal 4.1-10.5 [facility] Comment on above: Performed By: #### C DT #### [address] White Blood Count 6.9 [CFU]/mL Normal 4.1-10.5 [facility] Comment on above: Performed By: #### C DT #### [facility] [address] [id number] [facility] Comprehensive Metabolic Pane patricio 07-22-2025 Albumin [Mass/Vol] 3.4 g/dL Low 3.5-5.7 [facility] Comment on above: Order Comment: per r n isaias. arr 0851. Performed By: #### G LULS #### Point of Care testing , Albumin/Globulin [Mass ratio] 1.5 {ratio} Normal [facility] Comment on above: Order Comment: per r n isaias. arr 0851. Performed By: #### G LULS #### Point of Care testing , ALP [Catalytic activity/Vol] 73 U/L Normal 34-104 [facility] Comment on above: Order Comment: per r n isaias. arr 0851. Performed By: #### G LULS #### Point of Care testing , ALT [Catalytic activity/Vol] 15 U/L Normal 7-52 [facility] Comment on above: Order Comment: per r n isaias. arr 0851. Performed By: #### G LULS #### Point of Care testing , Anion gap [Moles/Vol] 6.6 mmol/L Normal 6.0-15.0 [facility] Comment on above: Order Comment: per r n isaias. arr 0851. Performed By: #### G LULS #### Point of Care testing , AST [Catalytic activity/Vol] 22 U/L Normal 13-39 [facility] Comment on above: Order Comment: per r n isaias. arr 0851. Performed By: #### G LULS #### Point of Care testing , Bilirubin [Mass/Vol] 0.6 mg/dL Normal 0.3-1.0 [facility] Comment on above: Order Comment: per r n isaias. arr 0851. Performed By: #### G LULS #### Point of Care testing , Calcium [Mass/Vol] 8.5 mg/dL Low 8.6-10.3 [facility] Comment on above: Order Comment: per r romina esparza. arr 0851. Performed By: #### G LULS #### Point of Care testing , Chloride [Moles/Vol] 101 mmol/L Normal 98-107 [facility] Comment on above: Order Comment: per r romina esparza. arr 0851. Performed By: #### G LULS #### Point of Care testing , CO2 [Moles/Vol] 27.1 mmol/L Normal 21.0-31.0 [facility] Comment on above: Order Comment: per r romina esparza. arr 0851. Performed By: #### G LULS #### Point of Care testing , Creatinine [Mass/Vol] 0.83 mg/dL Normal 0.70-1.30 [facility] Comment on above: Order Comment: per r romina esparza. arr 0851. Performed By: #### G LULS #### Point of Care testing , Creatinine Clr Calc Pharmacy 71.82 Normal [facility] Comment on above: Order Comment: per r romina esparza. arr 0851. Result Comment: PERF ORMED BY: [address] [place] [address] PATHOLOGIST DINKEY PRESS OPERATOR MARIAM WANG M.D. Performed By: #### G LULS #### Point of Care testing , GFR/1.73 sq M.predicted MDRD (S/P/Bld) [Vol rate/Area] mL/min/{1.73_m2} Normal [facility] Comment on above: Order Comment: per r romina esparza. arr 0851. Performed By: #### G LULS #### Point of Care testing , Globulin (S) [Mass/Vol] 2.3 g/dL Normal [facility] Comment on above: Order Comment: per r romina esparza. arr 0851. Performed By: #### G LULS #### Point of Care testing , Glucose [Mass/Vol] 116 mg/dL High 70-100 [facility] Comment on above: Order Comment: per r romina esparza. arr 0851. Result Comment: [facility] Glucose Reference Range is dependent on time and content of last meal. Glucose of more than 200 mg/dL in a nonstressed, ambulatory subject supports the diagnosis of Diabetes Mellitus. ADA recommended reference range Performed By: #### G LULS #### Point of Care testing , Potassium [Moles/Vol] 3.7 mmol/L Normal 3.5-5.1 [facility] Comment on above: Order Comment: per joyce esparza. arr 0851. Performed By: #### G LULS #### Point of Care testing , Protein [Mass/Vol] 5.7 g/dL Low 6.4-8.9 [facility] Comment on above: Order Comment: per joyce esparza. arr 0851. Performed By: #### G LULS #### Point of Care testing , Sodium [Moles/Vol] 131 mmol/L Low 136-145 [facility] Comment on above: Order Comment: per joyce esparza. arr 0851. Performed By: #### G LULS #### Point of Care testing , Urea nitrogen [Mass/Vol] 12 mg/dL Normal 7-25 [facility] Comment on above: Order Comment: per joyce esparza. arr 0851. Performed By: #### G LULS #### Point of Care testing , Glucose Poct Glucometerson 0 07-22-2025 Glucose [Mass/Vol] 168 mg/dL Normal [facility] Comment on above: Result Comment: [facility] Glucose Reference Range is dependent on time and content of last meal. Glucose of more than 200 mg/dL in a nonstressed, ambulatory subject supports the diagnosis of Diabetes Mellitus. PERFORMED BY: [facility] [address] [place] [address] PATHOLOGIST DINKEY PRESS OPERATOR MARIAM WANG M.D. Performed By: #### G LULS #### Point of Care testing , Glucose [Mass/Vol] 70 mg/dL Normal [facility] Comment on above: Result Comment: [facility] Glucose Reference Range is dependent on time and content of last meal. Glucose of more than 200 mg/dL in a nonstressed, ambulatory subject supports the diagnosis of Diabetes Mellitus. PERFORMED BY: [place] [id number] PATHOLOGIST DINKEY PRESS OPERATOR MARIAM WANG M.D. Performed By: #### G LULS #### Point of Care testing , Glucose [Mass/Vol] 94 mg/dL Normal [facility] Comment on above: Result Comment: [place] Glucose Reference Range is dependent on time and content of last meal. Glucose of more than 200 mg/dL in a nonstressed, ambulatory subject supports the diagnosis of Diabetes Mellitus. PERFORMED BY: [place] [phone] PATHOLOGIST DINKEY PRESS OPERATOR MARIAM WANG M.D. Performed By: #### C DT #### [address] Glucose [Mass/Vol] 86 mg/dL Normal [facility] Comment on above: Result Comment: [place] Glucose Reference Range is dependent on time and content of last meal. Glucose of more than 200 mg/dL in a nonstressed, ambulatory subject supports the diagnosis of Diabetes Mellitus. PERFORMED BY: [place] [address] PATHOLOGIST DINKEY PRESS OPERATOR MARIAM WANG M.D. Performed By: #### C DT #### [address] Glucose [Mass/Vol] 63 mg/dL Normal [facility] Comment on above: Result Comment: [place] Glucose Reference Range is dependent on time and content of last meal. Glucose of more than 200 mg/dL in a nonstressed, ambulatory subject supports the diagnosis of Diabetes Mellitus. PERFORMED BY: [place] [id number] PATHOLOGIST DINKEY PRESS OPERATOR MARIAM WANG M.D. Performed By: #### G LULS #### Point of Care testing , Vancomycin,Troughon --20 25 Vancomycin,Trough 12.0 Normal 10.0-20.0 [facility] Comment on above: Order Comment: > or = to 3 loose/watery stools in the last 24 HRS? Y Is patient on promotility agents or tube feeding? N Result Comment: Last dose: - PERFORMED BY: [place] [address] PATHOLOGIST DINKEY PRESS OPERATOR MARIAM WANG M.D. Performed By: #### C DT #### [place] [id number] [facility] C-Reactive Proteinon 025 C-Reactive Protein 12.1 mg/dL High 0.0-0.5 [facility] Comment on above: Result Comment: PERF ORMED BY: [place] [address] PATHOLOGIST DINKEY PRESS OPERATOR MARIAM WANG M.D. Performed By: #### C DT #### [place] [id number] [facility] CRP [Mass/Vol]on 07-21-2025 C-REACTIVE PROTEIN 12.1 mg/dL High 0.0 - 0.5 mg/dL [facility] Interpretation and review of laboratory results [facility] angio abdomen pelv[facility] CT angio abdomen pelvis [facility] Main [place] [address] [place] [address] CT Scan Report Signed Patient: Dariel Zabala MR#: [id number] 9 : 1940 Acct:[id number] Age/Sex: 85 / M ADM Date: 07/19/25 Loc: Room: [address] [place] [address] Type: ADM IN Attending Dr: Thalia Cervantes MD Copies to: Thalia Cervantes MD Ordering Provider: Thalia Cervantes MD Date of Service: 07/21/25 CT/CT angio abdomen pelvis: 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 CLINICAL DATA: Follow-up splenic infarct.. TECHNIQUE: CT of the abdomen and pelvis was initially performed without contrast. Intravenous contrast-enhanced CT angiography of the abdomen and pelvis was then performed. Axial, sagittal, coronal and volume-rendered three-dimensional reconstructions were created and reviewed. This CT exam was performed using one or more of the following dose reduction techniques: Automated exposure control, adjustment of the mA and/or kV according to patient size, or use of iterative reconstruction technique. COMPARISON: CT abdomen and pelvis 07/19/2025. FINDINGS: Lung Bases: Small right-sided pleural effusion with compressive atelectasis. Organs:Presumed vicarious excretion of IV contrast is seen within the gallbladder. Liver pancreas and adrenal glands appear unremarkable. 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 No active extravasation is seen. Cortical scarring left kidney. Small cyst right kidney. Aorta is normal in caliber without aneurysm dissection or rupture. GI: Stomach is grossly unremarkable. Small bowel appears nondilated. Inflammatory changes are once again seen along the sigmoid colon consistent with diverticulitis. No free air or abscess is seen. No obstruction.[ Pelvis:[Urinary bladder is grossly unremarkable. Prostatomegaly. Questionable abscess versus TURP defect involving the prostate measuring 2.1 x 1.5 x 1.4 cm. Right-sided inguinal hernia containing a small amount of fluid partially visualized on today's study.] Peritoneum/Retroperi toneum:No free air free fluid or lymphadenopathy.[ Abd wall/Bones:No acute findings. 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 No active contrast extravasation is seen. Sigmoid diverticulitis grossly similar to the prior study without obstruction or perforation or abscess. Questionable abscess versus TURP defect involving the prostate gland measuring 2.1 x 1.5 x 1.4 cm. Small right pleural effusion. Impression dictated by: Dariel Gooden Jr., Miriam[place]anna 07/21/2025 1:05 PM Dictation Location: [facility]18 Transcribed By: [facility] 07/21/25 1305 Dictated By: Dariel Gooden Jr, DO 07/21/25 1258 Signed By: 07/21/25 1305 Normal [facility] Complete Blood Count Auto Di ffon 07-21-2025 Basophils (Bld) [#/Vol] 0.0 10*3/uL Normal 0.0-0.2 [facility] Comment on above: Result Comment: PERF ORMED BY: [address] [place] [address] PATHOLOGIST DINKEY PRESS OPERATOR MARIAM WANG M.D. Performed By: #### C MP, MG, CBC #### [facility] [address] Basophils/100 WBC (Bld) 0.4 % Normal . [facility] Comment on above: Performed By: #### C MP, MG, CBC #### [facility] [address] Eosinophils (Bld) [#/Vol] 0.1 10*3/uL Normal 0.0-0.45 [facility] Comment on above: Performed By: #### C MP, MG, CBC #### [address] Eosinophils/100 WBC (Bld) 1.8 % Normal . [facility] Comment on above: Performed By: #### C MP, MG, CBC #### [address] Erythrocyte distribution width (RBC) [Ratio] 13.9 % Normal 12.0-14.8 [facility] Comment on above: Performed By: #### C MP, MG, CBC #### [address] Hematocrit (Bld) [Volume fraction] 34.5 % Low 38.8-50.0 [facility] Comment on above: Performed By: #### C MP, MG, CBC #### [address] Hemoglobin (Bld) [Mass/Vol] 12.1 g/dL Low 13.0-17.0 [facility] Comment on above: Performed By: #### C MP, MG, CBC #### [place] [address] [place] Lymphocytes (Bld) [#/Vol] 0.9 10*3/uL Low 1.00-4.8 [facility] Comment on above: Performed By: #### C MP, MG, CBC #### [facility] [address] [place] [address] [place] Lymphocytes/100 WBC (Bld) 13.4 % Normal . [facility] Comment on above: Performed By: #### C MP, MG, CBC #### [address] MCH (RBC) [Entitic mass] 31.9 pg Normal 27.5-35.2 [facility] Comment on above: Performed By: #### C MP, MG, CBC #### [address] MCV (RBC) [Entitic vol] 91.1 fL Normal 83.5-101 [facility] Comment on above: Performed By: #### C MP, MG, CBC #### [address] Mean Corpuscular HGB Conc 35.0 g/dL Normal 32.5-35.6 [facility] Comment on above: Performed By: #### C MP, MG, CBC #### [address] Monocytes (Bld) [#/Vol] 0.5 10*3/uL Normal 0.0-0.8 [facility] Comment on above: Performed By: #### C MP, MG, CBC #### [address] Monocytes/100 WBC (Bld) 7.1 % Normal . [facility] Comment on above: Performed By: #### C MP, MG, CBC #### [address] Neutrophils (Bld) [#/Vol] 5.0 10*3/uL Normal 1.8-7.7 [facility] Comment on above: Performed By: #### C MP, MG, CBC #### [address] Neutrophils/100 WBC (Bld) 77.3 % Normal . [facility] Comment on above: Performed By: #### C MP, MG, CBC #### [address] NRBC% 0.1 /100{WBC} Normal 0-0.5 [facility] Comment on above: Performed By: #### C MP, MG, CBC #### [address] Platelet mean volume (Bld) [Entitic vol] 8.9 fL Normal 6.6-10.1 [facility] Comment on above: Performed By: #### C MP, MG, CBC #### [address] Platelets (Bld) [#/Vol] 136 10*3/uL Low 150-450 [facility] Comment on above: Performed By: #### C MP, MG, CBC #### [address] RBC (Bld) [#/Vol] 3.79 10*6/uL Low 3.90-5.60 [facility] Comment on above: Performed By: #### C MP, MG, CBC #### [address] WBC (Bld) [#/Vol] 6.5 10*3/uL Normal 4.1-10.5 [facility] Comment on above: Performed By: #### C MP, MG, CBC #### [address] White Blood Count 6.5 [CFU]/mL Normal 4.1-10.5 [facility] Comment on above: Performed By: #### C MP, MG, CBC #### [address] Comprehensive Metabolic Pane patricio 07-21-2025 Albumin [Mass/Vol] 3.4 g/dL Low 3.5-5.7 [facility] Comment on above: Performed By: #### C MP, MG, CBC #### [address] Albumin/Globulin [Mass ratio] 1.4 {ratio} Normal [facility] Comment on above: Performed By: #### C MP, MG, CBC #### [address] ALP [Catalytic activity/Vol] 62 U/L Normal 34-104 [facility] Comment on above: Performed By: #### C MP, MG, CBC #### [address] ALT [Catalytic activity/Vol] 10 U/L Normal 7-52 [facility] Comment on above: Performed By: #### C MP, MG, CBC #### [facility] [address] [place] [address] Anion gap [Moles/Vol] 7.7 mmol/L Normal 6.0-15.0 [facility] Comment on above: Performed By: #### C MP, MG, CBC #### [address] AST [Catalytic activity/Vol] 14 U/L Normal 13-39 [facility] Comment on above: Performed By: #### C MP, MG, CBC #### [address] Bilirubin [Mass/Vol] 1.1 mg/dL High 0.3-1.0 [facility] Comment on above: Performed By: #### C MP, MG, CBC #### [facility] [address] [place] [address] Calcium [Mass/Vol] 8.4 mg/dL Low 8.6-10.3 [facility] Comment on above: Performed By: #### C MP, MG, CBC #### [facility] [address] [place] [address] [place] Chloride [Moles/Vol] 102 mmol/L Normal 98-107 [facility] Comment on above: Performed By: #### C MP, MG, CBC #### [facility] [address] [place] [address] CO2 [Moles/Vol] 26.2 mmol/L Normal 21.0-31.0 [facility] Comment on above: Performed By: #### C MP, MG, CBC #### [facility] [address] [place] [address] Creatinine [Mass/Vol] 0.88 mg/dL Normal 0.70-1.30 [facility] Comment on above: Performed By: #### C MP, MG, CBC #### [address] Creatinine Clr Calc Pharmacy 67.74 Normal [facility] Comment on above: Performed By: #### C MP, MG, CBC #### [place] [address] [place] GFR/1.73 sq M.predicted MDRD (S/P/Bld) [Vol rate/Area] mL/min/{1.73_m2} Normal [facility] Comment on above: Performed By: #### C MP, MG, CBC #### [address] Globulin (S) [Mass/Vol] 2.5 g/dL Normal [facility] Comment on above: Performed By: #### C MP, MG, CBC #### [address] Glucose [Mass/Vol] 92 mg/dL Normal 70-100 [facility] Comment on above: Result Comment: [place] Glucose Reference Range is dependent on time and content of last meal. Glucose of more than 200 mg/dL in a nonstressed, ambulatory subject supports the diagnosis of Diabetes Mellitus. ADA recommended reference range Performed By: #### C MP, MG, CBC #### [address] Potassium [Moles/Vol] 3.9 mmol/L Normal 3.5-5.1 [facility] Comment on above: Performed By: #### C MP, MG, CBC #### [place] [address] [place] Protein [Mass/Vol] 5.9 g/dL Low 6.4-8.9 [facility] Comment on above: Performed By: #### C MP, MG, CBC #### [address] Sodium [Moles/Vol] 132 mmol/L Low 136-145 [facility] Comment on above: Performed By: #### C MP, MG, CBC #### [address] Urea nitrogen [Mass/Vol] 12 mg/dL Normal 7-25 [facility] Comment on above: Performed By: #### C MP, MG, CBC #### [facility] [address] Glucose Poct Glucometerson 0 07-21-2025 Glucose [Mass/Vol] 70 mg/dL Normal [facility] Comment on above: Result Comment: [place] Glucose Reference Range is dependent on time and content of last meal. Glucose of more than 200 mg/dL in a nonstressed, ambulatory subject supports the diagnosis of Diabetes Mellitus. PERFORMED BY: [place] [address] PATHOLOGIST DINKEY PRESS OPERATOR MARIAM WANG M.D. Performed By: #### C DT #### [address] Glucose [Mass/Vol] 131 mg/dL Normal [facility] Comment on above: Result Comment: [place] Glucose Reference Range is dependent on time and content of last meal. Glucose of more than 200 mg/dL in a nonstressed, ambulatory subject supports the diagnosis of Diabetes Mellitus. PERFORMED BY: [place] [address] PATHOLOGIST DINKEY PRESS OPERATOR MARIAM WANG M.D. Performed By: #### V ANCP #### [address] Glucose [Mass/Vol] 152 mg/dL Normal [facility] Comment on above: Result Comment: [place] Glucose Reference Range is dependent on time and content of last meal. Glucose of more than 200 mg/dL in a nonstressed, ambulatory subject supports the diagnosis of Diabetes Mellitus. PERFORMED BY: [place] [address] PATHOLOGIST DINKEY PRESS OPERATOR MARIAM WANG M.D. Performed By: #### G LULS #### Point of Care testing , Glucose [Mass/Vol] 89 mg/dL Normal [facility] Comment on above: Result Comment: [facility] Glucose Reference Range is dependent on time and content of last meal. Glucose of more than 200 mg/dL in a nonstressed, ambulatory subject supports the diagnosis of Diabetes Mellitus. PERFORMED BY: [place] [address] PATHOLOGIST DINKEY PRESS OPERATOR MARIAM WANG M.D. Performed By: #### G LULS #### Point of Care testing , Magnesiumon 07-21-2025 Magnesium [Mass/Vol] 1.9 mg/dL Normal 1.9-2.7 [facility] Comment on above: Result Comment: PERF ORMED BY: [place] [address] PATHOLOGIST DINKEY PRESS OPERATOR MARIAM WANG M.D. Performed By: #### C MP, MG, CBC #### [address] Vancomycin,Peakon 07-21-2025 Vancomycin,Peak 23.0 Normal 20.0-40.0 [facility] Comment on above: Order Comment: > or = to 3 loose/watery stools in the last 24 HRS? Y Is patient on promotility agents or tube feeding? N Result Comment: Last dose: - PERFORMED BY: [place] [address] PATHOLOGIST DINKEY PRESS OPERATOR MARIAM WANG M.D. Performed By: #### C DT #### [address] Vancomycin,Peak 18.4 Low 20.0-40.0 [facility] Comment on above: Order Comment: Comme nt ?DRAW 1 HOUR AFTER INFUSION COMPLETES Date of last dose?: [id number] Time of last dose?: 020 Result Comment: Last dose: - PERFORMED BY: [place] [address] PATHOLOGIST DINKEY PRESS OPERATOR MARIAM WANG M.D. Performed By: #### V ANCP #### [place] [address] C-Reactive Proteinon 025 C-Reactive Protein 11.5 mg/dL High 0.0-0.5 [facility] Comment on above: Result Comment: PERF ORMED BY: [place] [address] PATHOLOGIST DINKEY PRESS OPERATOR MARIAM WANG M.D. Performed By: #### V ANCP #### [address] Clostridium Difficileon 09-0 Clostridium Difficile Negative Normal Negative [facility] Comment on above: Order Comment: > or = to 3 loose/watery stools in the last 24 HRS? Y Is patient on promotility agents or tube feeding? N Result Comment: Test ing performed by RT-PCR PERFORMED BY: [place] [address] PATHOLOGIST DINKEY PRESS OPERATOR MARIAM WANG M.D. Performed By: #### C DT #### [address] Coagulation Profileon 2024 aPTT Coag (Bld) [Time] 34.7 s Normal 25.1-36.5 [facility] Comment on above: Result Comment: A he matocrit value greater than 55% may lead to inaccurate results in coagulation testing. Patients having hematocrit values >55% require a special collection tube for coagulation studies. Please contact the laboratory at [phone] for redraw instructions. PERFORMED BY: [place] [address] PATHOLOGIST DINKEY PRESS OPERATOR MARIAM WANG M.D. Performed By: #### V ANCP #### [address] INR Coag (PPP) [Relative time] 1.5 {INR} Normal [facility] Comment on above: Result Comment: INR Therapeutic [...] with mechanical heart valves: 3 - 4.5 Performed By: #### V ANCP #### [address] PT Coag (PPP) [Time] 16.6 s High 9.0-12.9 [facility] Comment on above: Result Comment: A he matocrit value greater than 55% may lead to inaccurate results in coagulation testing. Patients having hematocrit values >55% require a special collection tube for coagulation studies. Please contact the laboratory at [phone] for redraw instructions. Performed By: #### V ANCP #### [address] Complete Blood Count Auto Di ffon 07-20-2025 Basophils (Bld) [#/Vol] 0.0 10*3/uL Normal 0.0-0.2 [facility] Comment on above: Performed By: #### V ANCP #### [address] Basophils/100 WBC (Bld) 0.3 % Normal . [facility] Comment on above: Performed By: #### V ANCP #### [address] Eosinophils (Bld) [#/Vol] 0.0 10*3/uL Normal 0.0-0.45 [facility] Comment on above: Performed By: #### V ANCP #### [address] Eosinophils/100 WBC (Bld) 0.3 % Normal . [facility] Comment on above: Performed By: #### V ANCP #### [address] Erythrocyte distribution width (RBC) [Ratio] 13.9 % Normal 12.0-14.8 [facility] Comment on above: Performed By: #### V ANCP #### [address] Hematocrit (Bld) [Volume fraction] 36.3 % Low 38.8-50.0 [facility] Comment on above: Performed By: #### V ANCP #### [address] Hemoglobin (Bld) [Mass/Vol] 12.6 g/dL Low 13.0-17.0 [facility] Comment on above: Performed By: #### V ANCP #### [address] Lymphocytes (Bld) [#/Vol] 0.9 10*3/uL Low 1.00-4.8 [facility] Comment on above: Performed By: #### V ANCP #### [address] Lymphocytes/100 WBC (Bld) 9.4 % Normal . [facility] Comment on above: Performed By: #### V ANCP #### [address] MCH (RBC) [Entitic mass] 31.9 pg Normal 27.5-35.2 [facility] Comment on above: Performed By: #### V ANCP #### [address] MCV (RBC) [Entitic vol] 91.8 fL Normal 83.5-101 [facility] Comment on above: Performed By: #### V ANCP #### [address] Mean Corpuscular HGB Conc 34.8 g/dL Normal 32.5-35.6 [facility] Comment on above: Performed By: #### V ANCP #### [address] Monocytes (Bld) [#/Vol] 0.5 10*3/uL Normal 0.0-0.8 [facility] Comment on above: Performed By: #### V ANCP #### [address] Monocytes/100 WBC (Bld) 5.6 % Normal . [facility] Comment on above: Performed By: #### V ANCP #### [facility] [address] [place] [address] [place] Neutrophils (Bld) [#/Vol] 7.9 10*3/uL High 1.8-7.7 [facility] Comment on above: Performed By: #### V ANCP #### [facility] [address] [place] [address] [place] Neutrophils/100 WBC (Bld) 84.4 % Normal . [facility] Comment on above: Performed By: #### V ANCP #### [facility] [address] [place] [address] [place] NRBC% 0.1 /100{WBC} Normal 0-0.5 [facility] Comment on above: Performed By: #### V ANCP #### [facility] [address] [place] [address] [place] Platelet mean volume (Bld) [Entitic vol] 9.3 fL Normal 6.6-10.1 [facility] Comment on above: Performed By: #### V ANCP #### [facility] [address] [place] [address] [place] Platelets (Bld) [#/Vol] 138 10*3/uL Low 150-450 [facility] Comment on above: Performed By: #### V ANCP #### [facility] [address] [place] [id number] [place] RBC (Bld) [#/Vol] 3.96 10*6/uL Normal 3.90-5.60 [facility] Comment on above: Performed By: #### V ANCP #### [facility] [address] [place] [id number] [place] WBC (Bld) [#/Vol] 9.3 10*3/uL Normal 4.1-10.5 [facility] Comment on above: Performed By: #### V ANCP #### [facility] [address] [place] [phone] [place] White Blood Count 9.3 [CFU]/mL Normal 4.1-10.5 [facility] Comment on above: Performed By: #### V ANCP #### [facility] [address] Comprehensive Metabolic Pane patricio 07-20-2025 Albumin [Mass/Vol] 3.6 g/dL Normal 3.5-5.7 [facility] Comment on above: Performed By: #### V ANCP #### [facility] [address] [place] [id number] [facility] Albumin/Globulin [Mass ratio] 1.6 {ratio} Normal [facility] Comment on above: Performed By: #### V ANCP #### [facility] [address] ALP [Catalytic activity/Vol] 69 U/L Normal 34-104 [facility] Comment on above: Performed By: #### V ANCP #### [address] ALT [Catalytic activity/Vol] 12 U/L Normal 7-52 [facility] Comment on above: Performed By: #### V ANCP #### [address] Anion gap [Moles/Vol] 10.3 mmol/L Normal 6.0-15.0 [facility] Comment on above: Performed By: #### V ANCP #### [address] AST [Catalytic activity/Vol] 17 U/L Normal 13-39 [facility] Comment on above: Performed By: #### V ANCP #### [address] Bilirubin [Mass/Vol] 1.5 mg/dL High 0.3-1.0 [facility] Comment on above: Result Comment: Samp les from patients who have taken Naproxen have shown spurious elevation in Total Bilirubin levels. A metabolite of Naproxen, O-desmethylnaproxen, has been shown to interfere with the Jenkaty-Naila method for measuring Total Bilirubin. Performed By: #### V ANCP #### [address] Calcium [Mass/Vol] 8.7 mg/dL Normal 8.6-10.3 [facility] Comment on above: Performed By: #### V ANCP #### [address] Chloride [Moles/Vol] 100 mmol/L Normal 98-107 [facility] Comment on above: Performed By: #### V ANCP #### [address] CO2 [Moles/Vol] 27.2 mmol/L Normal 21.0-31.0 [facility] Comment on above: Performed By: #### V ANCP #### [address] Creatinine [Mass/Vol] 0.88 mg/dL Normal 0.70-1.30 [facility] Comment on above: Performed By: #### V ANCP #### [address] Creatinine Clr Calc Pharmacy 67.65 Normal [facility] Comment on above: Performed By: #### V ANCP #### [address] GFR/1.73 sq M.predicted MDRD (S/P/Bld) [Vol rate/Area] mL/min/{1.73_m2} Normal [facility] Comment on above: Performed By: #### V ANCP #### [address] Globulin (S) [Mass/Vol] 2.3 g/dL Normal [facility] Comment on above: Performed By: #### V ANCP #### [address] Glucose [Mass/Vol] 115 mg/dL High 70-100 [facility] Comment on above: Result Comment: [place] Glucose Reference Range is dependent on time and content of last meal. Glucose of more than 200 mg/dL in a nonstressed, ambulatory subject supports the diagnosis of Diabetes Mellitus. ADA recommended reference range Performed By: #### V ANCP #### [facility] [address] Potassium [Moles/Vol] 4.5 mmol/L Normal 3.5-5.1 [facility] Comment on above: Performed By: #### V ANCP #### [facility] [address] Protein [Mass/Vol] 5.9 g/dL Low 6.4-8.9 [facility] Comment on above: Performed By: #### V ANCP #### [address] Sodium [Moles/Vol] 133 mmol/L Low 136-145 [facility] Comment on above: Performed By: #### V ANCP #### [address] Urea nitrogen [Mass/Vol] 11 mg/dL Normal 7-25 [facility] Comment on above: Performed By: #### V ANCP #### [address] ECH echo transthoracicon ECH echo transthoracic [facility] Main [place] [address] [place] [address] Echocardiogram Signed Patient: Dariel Zabala MR#: [id number] 9 : 1940 Acct:[id number] Age/Sex: 85 / M ADM Date: 07/19/25 Loc: Room: [address] [place] [address] Type: ADM IN Attending Dr: Thalia Cervantes MD Ordering Provider: Emilio Tate DO, RES Date of Service: 07/19/2504/07/1852 ECH/ECH echo transthoracic: R/o endocarditis Copies to: MD Emilio Dickinson DO, RES J 12:01 PM Patient Location: : 1940 Gender: Male (MM/DD/YYYY) Age: 85 Years Ordering Physician: Emilio Tate Height: 71 in Weight: 165.788 lb Performed By: Flip Marshall RDCS, RVT BSA: 1.95 m2 BP: 124 / 72 mmHg HR: 63 bpm Reason For Study: R/o endocarditis History: CVA DM AFIB + + Interpretation Summary Ejection Fraction = 60-65%. No regional wall motion abnormalities noted. A variety of Doppler measurements indicate normal left ventricular diastolic function. Mild concentric left ventricular hypertrophy. The left atrium appears moderately dilated. The right atrium is moderately dilated. There is mild tricuspid regurgitation. Atrial septum appears to be intact and there is no evidence of flow across the atrial septum either by colorflow Doppler or by agitated saline. There is no comparison study available. There is no evidence of a mass or vegetation. This does not rule out endocarditis. Procedure/Quality: A two-dimensional transthoracic echocardiogram with color flow, Doppler and injection of contrast agent Definity was performed. A two-dimensional transthoracic echocardiogram with color flow, Doppler and injection of aggitated saline was performed. The study was technically good in quality. Left Ventricle: The left ventricular size is normal. Mild concentric left ventricular hypertrophy. Ejection Fraction = 60-65%. A variety of Doppler measurements indicate normal left ventricular diastolic function. No regional wall motion abnormalities noted. Left Atrium: The left atrium appears moderately dilated. Atrial septum appears to be intact and there is no evidence of flow across the atrial septum either by colorflow Doppler or by agitated saline. Right Atrium: The right atrium is moderately dilated. Right Ventricle: The right ventricle is normal in size and function. Aortic Valve: The aortic valve is mildly calcified. No hemodynamically significant valvular aortic stenosis. No aortic regurgitation is present. Mitral Valve: The mitral valve is mildly sclerotic. No significant mitral valve stenosis. There is no mitral regurgitation noted. Tricuspid Valve: The tricuspid valve is not well visualized. There is mild tricuspid regurgitation. Pulmonic Valve: The pulmonic valve is not well visualized. Trace pulmonic valvular regurgitation. Arteries: The aortic root is normal size. Pericardium/Pleura: No pericardial effusion seen. IVC/Hepatic Veins: The inferior vena cava is normal in size, with a normal collapsibility index. MMode/2D Measurements Calculations IVSd (0.7-1.1 cm): 1.20 cm LVIDd (3.7-5.4 cm): 4.2 cm LVPWd (0.7-1.1 cm): 1.20 cm LVIDs (2.3-3.6 cm): 2.40 cm LA dimension (2.3-4.0 cm): 4.4 LVOT diam: 2.10 cm cm FS: 42.9 % LVOT area: 3.5 cm2 EDV(Teich): 78.6 ml Ao root area: 10.2 cm2 ESV(Teich): 20.2 ml Ao root diam (2.0-3.2 cm): 3.6 cm EF(Teich): 74.3 % asc Aorta Diam: 3.8 cm LA A2 area: 23.6 cm2 LA A4 area: 25.8 cm2 LA length (vol): 6.6 cm LA vol: 78.4 ml LA vol index: 40.3 ml/m2 Doppler Measurements Calculations E/E' med: 9.3 Ao V2 max: 126.0 cm/sec E/E' lat: 6.7 Ao max P.4 mmHg MV E max sourav: 99.2 cm/sec Ao mean P.0 mmHg MV A max sourav: 45.3 cm/sec Ao V2 mean: 88.2 cm/sec MV E/A: 2.19 Ao V2 VTI: 27.4 cm SAMIA(I,D): 1.66 cm2 SAMIA(V,D): 1.75 cm2 MV V2 VTI: 25.1 cm MV mean P.00 mmHg MV V2 mean: 48.3 cm/sec MV dec time: 0.17 sec TV max P.0 mmHg LV V1 max: 63.7 cm/sec TR max sourav: 270.0 cm/sec LV V1 max P.62 mmHg TR max P.2 mmHg LV V1 mean: 41.0 cm/sec RAP systole: 3.0 mmHg LV V1 mean P.00 mmHg RVSP(TR): 32.2 mmHg LV V1 VTI: 13.1 cm Other Measurements Calculations RA Volume: RA Volume 87.3 ml Index: 44.8 ml/m2 + + + + + -------+ + : Electronically : : signed by: Darwin : : : : Chase : : Bettie : : : : : : on: 07/21/2025, : : : : 3:48 PM : + -------+- (more content not included)... Normal [facility] Erythrocyte Sedimentation Ra lisa 07-20-2025 ESR (Bld) [Velocity] 16 mm/h Normal 0-19 [facility] Comment on above: Result Comment: PERF ORMED BY: [facility] [address] [place] [address] PATHOLOGIST DINKEY PRESS OPERATOR MARIAM WANG M.D. Performed By: #### G LULS #### Point of Care testing , Glucose Poct Glucometerson 0 07-20-2025 Glucose [Mass/Vol] 171 mg/dL Normal [facility] Comment on above: Result Comment: [facility] Glucose Reference Range is dependent on time and content of last meal. Glucose of more than 200 mg/dL in a nonstressed, ambulatory subject supports the diagnosis of Diabetes Mellitus. PERFORMED BY: [place] [address] PATHOLOGIST DINKEY PRESS OPERATOR MARIAM WANG M.D. Performed By: #### G LULS #### Point of Care testing , Glucose [Mass/Vol] 81 mg/dL Normal [facility] Comment on above: Result Comment: [place] om Glucose Reference Range is dependent on time and content of last meal. Glucose of more than 200 mg/dL in a nonstressed, ambulatory subject supports the diagnosis of Diabetes Mellitus. PERFORMED BY: [place] [address] PATHOLOGIST DINKEY PRESS OPERATOR MARIAM WANG M.D. Performed By: #### V ANCP #### [address] Glucose [Mass/Vol] 184 mg/dL Normal [facility] Comment on above: Result Comment: [place] om Glucose Reference Range is dependent on time and content of last meal. Glucose of more than 200 mg/dL in a nonstressed, ambulatory subject supports the diagnosis of Diabetes Mellitus. PERFORMED BY: [place] [address] PATHOLOGIST DINKEY PRESS OPERATOR MARIAM WANG M.D. Performed By: #### V ANCP #### [address] Glucose [Mass/Vol] 115 mg/dL Normal [facility] Comment on above: Result Comment: [place] om Glucose Reference Range is dependent on time and content of last meal. Glucose of more than 200 mg/dL in a nonstressed, ambulatory subject supports the diagnosis of Diabetes Mellitus. PERFORMED BY: [place] [address] PATHOLOGIST DINKEY PRESS OPERATOR MARIAM WANG M.D. Performed By: #### V ANCP #### [address] Magnesiumon 07-20-2025 Magnesium [Mass/Vol] 1.7 mg/dL Low 1.9-2.7 [facility] Comment on above: Performed By: #### V ANCP #### [address] A1C with Estimated Average G antonn 07-19-2025 Glucose [Mass/Vol] 131 mg/dL Normal [facility] Comment on above: Result Comment: PERF ORMED BY: [place] [address] PATHOLOGIST DINKEY PRESS OPERATOR MARIAM WANG M.D. Performed By: #### V ANCP #### [address] HbA1c (Bld) [Mass fraction] 6.2 % High 4.3-5.6 [facility] Comment on above: Result Comment: Incr eased risk for diabetes: 5.7 - 6.4 diabetes: >6.4 glycemic control for adults with diabetes: <7.0 Performed By: #### V ANCP #### [address] Glucose Poct Glucometerson 0 07-19-2025 Glucose [Mass/Vol] 112 mg/dL Normal [facility] Comment on above: Result Comment: [place] Glucose Reference Range is dependent on time and content of last meal. Glucose of more than 200 mg/dL in a nonstressed, ambulatory subject supports the diagnosis of Diabetes Mellitus. PERFORMED BY: [place] [address] PATHOLOGIST DINKEY PRESS OPERATOR MARIAM WANG M.D. Performed By: #### G LULS #### Point of Care testing , [facility] 07-17-[address] [place] [address] Case Information Case Priority: None Programs: -- Referral Source: Fiscal Manager Referral Reason: Care coordination Case Type: Transition [...] 100 mg oral capsule Ure-Na, See Instructions Vitamin B12, 50 mcg, Oral, Daily, PRN [...] Tobacco Use:. Household tobacco concerns: No. Yes, 07/11/2025 Family History Diabetes mellitus type 2: Mother. Screenings and Assessments 07/08/25 09:31:00 Result Name Value Comment Phone Call Monitoring Consent Agreed to continue call Phone Verification Patient Information Full name, street address and date of verified CM Program Enrollment Provides verbal consent for enrollment Goals and Interventions Care Plan Progress Note TCM 2 Spent 8 minutes on the phone with pt. PT. reports doing good, no falls. Eating and drinking good. No medication concerns. Pt. very complimentary of the discharge care he is receiving. No issues or concerns at this time. Pt. does not do his vitals at home. Communication Events Date: July 17, 2025 Method: Phone call Type: Outbound Duration (min): 7 Outcome: Case discussion Contact Type: hedis coordinator Contact Name: Ania Crews Notes: See FT summary note Created By: Ania Crews Date: July 08, 2025 Method: Phone call Type: Outbound Duration (min): 12 Outcome: Case discussion Contact Type: Patient Contact Name: DARIEL ZABALA Notes: TCM#1- See TCM note. Created By: Alec Rodrigez Date: July 05, 2025 Method: Phone call Type: Outbound Duration (min): 1 Outcome: Left message-voicemail Contact Type: Patient Contact Name: DARIEL ZABALA Notes: TCM#1- Attempted to reach patient for initial TCM, no answer, left vm for return call. Created By: Alec Rodrigez Normal [facility] Sodiumon 07-12-2025 Sodium [Moles/Vol] 131 mmol/L Low 135-145 [facility] Comment on above: Performed By: #### [id number] #### [facility] [address] [place] [address] Ambulatory Visit Summaryon 0 07-11-2025 Ambulatory Visit [...] AM EDT With: YANIQUE MCNEILL CNP Where: [place] [address]- [id number] 8:00 AM EDT With: Where: [facility] [address] [address]- Medications What How Much When Why Instructions [...] disease BMI 23.0-23.9, adult Nonsmoker Natural Lemon [place] flavor Contact prescribing physician if questions or [...] for Prop (more content not included)... Normal [facility] Family Medicine Office/Clini c Noteon 07-11-2025 Family Medicine Office/Clinic Note Family Medicine Office/Clinic Note Chief Complaint TCM visit The patient presents for medication management and sodium level evaluation. HPI Staff Pt presents today for TCM visit. Hospital: [facility] Admission date: 06/17/25 Discharge date: 06/23/25 Symptoms the patient presented with: CVA & Low Sodium Current concerns: Concerned with medications. History of Present Illness 85-year-old male presenting with his for a TCM appointment following discharge from the [place]. He is here for sodium level evaluation [...] qualifying data available Patient Education Stroke Prevention, [id number] Problem List/Past Medical History Ongoing ASCVD (arteriosclerotic [...] mg Tab, TID omeprazole 40 mg Cap-DR, (more content not included)... Normal [facility] Comment on above: Result Comment: Elec tronically Signed By: YANIQUE MCNEILL CNP\.br\Date and Time Signed: 07/11/25 15:05 EDT [facility] 07-08-20 [facility] Case Information Case Priority: None Programs: -- Referral Source: Fiscal Manager Referral Reason: Care coordination Case Type: Transition Care Management Risk Score: -- Case Status: Enrolled (July 08, 2025) Date Assigned: July 05, 2025 Assigned By: Alec Rodrigez Date Enrolled: July 08, 2025 Assigned Primary Personnel: Alec Rodrigez Assigned Secondary Personnel: -- Case Physician: REYES GARAGE DOOR SERVICE TECHNICIAN, YANIQUE A Problems Ongoing ASCVD (arteriosclerotic cardiovascular disease) Back [...] appointment scheduled? yes, TCM with Pedro Mcneill, 07/11/25 at 1420 Did you understand your discharge [...] to bed at 2100, get up around [id number], sleep through the night Are you having any pain? slight, very slight, knee pain every now and then Do you have everything you need at home to care for yourself? yes Do you have Home Health? no Called patient for initial Transitional Care Management Program call. Readmission risk is not available. No d/c summary/instructions available at this time. Patient advised to bring to TCM follow up. 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 [...] is good.' (more content not included)... Normal [facility] Family Medicine Office/Clini c Noteon 07-04-2025 [...] and is currently under transitional care. A elderly caregiver is expected to contact the patient to [...] No qualifying data available Patient Education Hyponatremia, [id number] Problem List/Past Medical History Ongoing ASCVD (arteriosclerotic [...] virus vaccine, inactivated 08/02/2014 Recorded Normal [facility] Comment on above: Result Comment: Elec tronically Signed By: YANIQUE MCNEILL CNP\.br\Date and Time Signed: 07/04/25 14:55 EDT Basic Metabolic Panelon 06-14 Anion gap [Moles/Vol] 7 mmol/L 5 - 15 mmol/L [facility] Calcium [Mass/Vol] 9.9 mg/dL 8.5 - 10. 5 mg/dL [facility] Chloride [Moles/Vol] 95 mmol/L Low 98 - 10 9 mmol/L [facility] CO2 [Moles/Vol] 31 mmol/L 22 - 32 mmol/L [facility] Creatinine [Mass/Vol] 0.8 mg/dL 0.60 - 1.30 mg/dL [facility] Comment on above: METHOD TRACEABLE TO IDMS STANDARD EGFR Non-Race Dependent 88 - PINF [facility] Comment on above: Reported eGFR is bas ed on the CKD-EPI 2020 equation that does not use a race coefficient. Glucose [Mass/Vol] 101 mg/dL High 65 - 99 mg/dL [facility] Potassium [Moles/Vol] 4.5 mmol/L 3.5 - 5.0 mmol/L [facility] Sodium [Moles/Vol] 133 mmol/L Low 134 - 146 mmol/L [facility] Urea nitrogen [Mass/Vol] 29 mg/dL High 5 - 27 mg/dL [facility] CBC auto differentialon 06-14 Basophils (Bld) [#/Vol] 0.1 10*3/uL 0.0 - 0.2 10*3/uL [facility] Basophils/100 WBC (Bld) 1.5 % [facility] Differential cell count method Nom (Bld) AUTOMATED DIFFERENTIAL [facility] Eosinophils (Bld) [#/Vol] 0.1 10*3/uL 0.0 - 0.4 10*3/uL [facility] Eosinophils/100 WBC (Bld) 3 % [facility] Erythrocyte distribution width (RBC) [Ratio] 13.8 % 11.5 - 15 % [facility] Hematocrit (Bld) [Volume fraction] 40 % 39 - 50 % [facility] Hemoglobin (Bld) [Mass/Vol] 13.8 g/dL 13 - 17 g/dL [facility] Lymphocytes (Bld) [#/Vol] 1.5 10*3/uL 1.0 - 3.5 10*3/uL [facility] Lymphocytes/100 WBC (Bld) 34.7 % [facility] MCH (RBC) [Entitic mass] 31.3 pg 27 - 34 pg [facility] MCHC (RBC) [Mass/Vol] 34.5 g/dL 32 - 3 6 g/dL [facility] MCV (RBC) [Entitic vol] 91 fL 80 - 100 fL [facility] Monocytes (Bld) [#/Vol] 0.4 10*3/uL 0.0 - 0.9 10*3/uL [facility] Monocytes/100 WBC (Bld) 10.2 % [facility] Neutrophils (Bld) [#/Vol] 2.1 10*3/uL 1.5 - 6.6 10*3/uL [facility] Neutrophils/100 WBC (Bld) 50.6 % [facility] Platelet mean volume (Bld) [Entitic vol] 9.5 fL 7 - 12 fL [facility] Platelets (Bld) [#/Vol] 234 10*3/uL [facility] RBC (Bld) [#/Vol] 4.4 10*6/uL [facility] WBC LM Ql (Sput) 4.[address] [facility] ECG 12 Leadon 06-23-2025 TRACEMASTERVUE [facility] Electrolyte panelon 06-23-20 25 Anion gap [Moles/Vol] 10 mmol/L 5 - 15 mmol/L [facility] Chloride [Moles/Vol] 96 mmol/L Low 98 - 10 9 mmol/L [facility] CO2 [Moles/Vol] 27 mmol/L 22 - 32 mmol/L [facility] Interpretation and review of laboratory results Abnormal [facility] Potassium [Moles/Vol] 4.2 mmol/L 3.5 - 5.0 mmol/L [facility] Sodium [Moles/Vol] 133 mmol/L Low 134 - 146 mmol/L [facility] Ionized calciumon 06-23-2025 Calcium.ionized ISE [Moles/Vol] 5.1 mg/dL 4.5 - 5.3 mg/dL [facility] Interpretation and review of laboratory results Normal [facility] Magnesiumon 06-23-2025 Magnesium [Mass/Vol] 1.6 mg/dL Low 1.8 - 2 .6 mg/dL [facility] No Panel Informationon 06-23 Interpretation and review of laboratory results Abnormal [facility] Phosphoruson 06-23-2025 Interpretation and review of laboratory results Normal [facility] Phosphate [Mass/Vol] 3.5 mg/dL 2.4 - 4 .9 mg/dL [facility] Protime & INROrdered By: Lucy Branham on 06-23-2025 INR Coag (Platelet poor plasma or blood) [Relative time] 2.8 High 0.9 - 1.2 [facility] Interpretation and review of laboratory results Abnormal [facility] PT Coag (PPP) [Time] 32.1 s High [facility] Anti XA unfractionated hepar inOrdered By: Mindy Conklin on 06-22-2025 Heparin unfractionated Chromogenic method Qn (PPP) 0.56 [facility] Comment on above: Optimal time for raimundo ting is 6 hrs post dosage This test is specific for monitoring patients on UFH, and is not recommended for use with other Anti-Xa medications. Interpretation and review of laboratory results Normal [facility] Basic Metabolic Panelon Anion gap [Moles/Vol] 8 mmol/L 5 - 15 mmol/L [facility] Calcium [Mass/Vol] 9.1 mg/dL 8.5 - 10. 5 mg/dL [facility] Chloride [Moles/Vol] 93 mmol/L Low 98 - 10 9 mmol/L [facility] CO2 [Moles/Vol] 26 mmol/L 22 - 32 mmol/L [facility] Creatinine [Mass/Vol] 0.76 mg/dL 0.60 - 1.30 mg/dL [facility] Comment on above: METHOD TRACEABLE TO IDMS STANDARD EGFR Non-Race Dependent 89 - PINF [facility] Comment on above: Reported eGFR is bas ed on the CKD-EPI 2020 equation that does not use a race coefficient. Glucose [Mass/Vol] 135 mg/dL High 65 - 99 mg/dL [facility] Interpretation and review of laboratory results Abnormal [facility] Potassium [Moles/Vol] 4.3 mmol/L 3.5 - 5.0 mmol/L [facility] Sodium [Moles/Vol] 127 mmol/L Low 134 - 146 mmol/L [facility] Urea nitrogen [Mass/Vol] 35 mg/dL High 5 - 27 mg/dL [facility] CBC auto differentialon Basophils (Bld) [#/Vol] 0.1 10*3/uL 0.0 - 0.2 10*3/uL [facility] Basophils/100 WBC (Bld) 1.3 % [facility] Differential cell count method Nom (Bld) AUTOMATED DIFFERENTIAL [facility] Eosinophils (Bld) [#/Vol] 0.1 10*3/uL 0.0 - 0.4 10*3/uL [facility] Eosinophils/100 WBC (Bld) 2 % [facility] Erythrocyte distribution width (RBC) [Ratio] 13.5 % 11.5 - 15 % [facility] Hematocrit (Bld) [Volume fraction] 36.3 % Low 39 - 50 % [facility] Hemoglobin (Bld) [Mass/Vol] 12.5 g/dL Low 13 - 17 g/dL [facility] Interpretation and review of laboratory results Abnormal [facility] Lymphocytes (Bld) [#/Vol] 1.5 10*3/uL 1.0 - 3.5 10*3/uL [facility] Lymphocytes/100 WBC (Bld) 26.9 % [facility] MCH (RBC) [Entitic mass] 31.2 pg 27 - 34 pg [facility] MCHC (RBC) [Mass/Vol] 34.4 g/dL 32 - 3 6 g/dL [facility] MCV (RBC) [Entitic vol] 91 fL 80 - 100 fL [facility] Monocytes (Bld) [#/Vol] 0.7 10*3/uL 0.0 - 0.9 10*3/uL [facility] Monocytes/100 WBC (Bld) 12.2 % [facility] Neutrophils (Bld) [#/Vol] 3.3 10*3/uL 1.5 - 6.6 10*3/uL [facility] Neutrophils/100 WBC (Bld) 57.6 % [facility] Platelet mean volume (Bld) [Entitic vol] 9.8 fL 7 - 12 fL [facility] Platelets (Bld) [#/Vol] 212 10*3/uL [facility] RBC (Bld) [#/Vol] 4 10*6/uL Low [facility] WBC LM Ql (Sput) 5.[address] [facility] Electrolyte panelon 06-22-20 25 Anion gap [Moles/Vol] 8 mmol/L 5 - 15 mmol/L [facility] Chloride [Moles/Vol] 93 mmol/L Low 98 - 10 9 mmol/L [facility] CO2 [Moles/Vol] 28 mmol/L 22 - 32 mmol/L [facility] Interpretation and review of laboratory results Abnormal [facility] Potassium [Moles/Vol] 4.4 mmol/L 3.5 - 5.0 mmol/L [facility] Sodium [Moles/Vol] 129 mmol/L Low 134 - 146 mmol/L [facility] Anion gap [Moles/Vol] 7 mmol/L 5 - 15 mmol/L [facility] Chloride [Moles/Vol] 94 mmol/L Low 98 - 10 9 mmol/L [facility] CO2 [Moles/Vol] 28 mmol/L 22 - 32 mmol/L [facility] Interpretation and review of laboratory results Abnormal [facility] Potassium [Moles/Vol] 4.4 mmol/L 3.5 - 5.0 mmol/L [facility] Sodium [Moles/Vol] 129 mmol/L Low 134 - 146 mmol/L [facility] Lavender Topon 06-22-2025 Extra Tube Auto Resulted [facility] No Panel Informationon 06-22 [facility] Protime & INRon 06-22-2025 INR Coag (Platelet poor plasma or blood) [Relative time] 1.8 High 0.9 - 1.2 [facility] Interpretation and review of laboratory results Abnormal [facility] PT Coag (PPP) [Time] 19.9 s High [facility] Anti XA unfractionated hepar inon 06-21-2025 Heparin unfractionated Chromogenic method Qn (PPP) 0.37 [facility] Comment on above: Optimal time for raimundo ting is 6 hrs post dosage This test is specific for monitoring patients on UFH, and is not recommended for use with other Anti-Xa medications. Interpretation and review of laboratory results Normal [facility] Heparin unfractionated Chromogenic method Qn (PPP) 0.65 [facility] Comment on above: Optimal time for raimundo ting is 6 hrs post dosage This test is specific for monitoring patients on UFH, and is not recommended for use with other Anti-Xa medications. Interpretation and review of laboratory results Normal [facility] Basic Metabolic Panelon Anion gap [Moles/Vol] 9 mmol/L 5 - 15 mmol/L [facility] Calcium [Mass/Vol] 9 mg/dL 8.5 - 10. 5 mg/dL [facility] Chloride [Moles/Vol] 93 mmol/L Low 98 - 10 9 mmol/L [facility] CO2 [Moles/Vol] 25 mmol/L 22 - 32 mmol/L [facility] Creatinine [Mass/Vol] 0.72 mg/dL 0.60 - 1.30 mg/dL [facility] Comment on above: METHOD TRACEABLE TO IDMT STANDARD EGFR Non-Race Dependent - PINF [facility] Comment on above: Reported eGFR is bas ed on the CKD-EPI 2020 equation that does not use a race coefficient. Glucose [Mass/Vol] 121 mg/dL High 65 - 99 mg/dL [facility] Interpretation and review of laboratory results Abnormal [facility] Potassium [Moles/Vol] 4.5 mmol/L 3.5 - 5.0 mmol/L [facility] Sodium [Moles/Vol] 127 mmol/L Low 134 - 146 mmol/L [facility] Urea nitrogen [Mass/Vol] 25 mg/dL 5 - 27 mg/dL [facility] C-reactive proteinon 025 CRP [Mass/Vol] 8.9 mg/dL High NINF - 0.7 mg/dL [facility] Interpretation and review of laboratory results Abnormal [facility] CBC auto differentialon Basophils (Bld) [#/Vol] 0.1 10*3/uL 0.0 - 0.2 10*3/uL [facility] Basophils/100 WBC (Bld) 1.1 % [facility] Differential cell count method Nom (Bld) AUTOMATED DIFFERENTIAL [facility] Eosinophils (Bld) [#/Vol] 0 10*3/uL 0.0 - 0.4 10*3/uL [facility] Eosinophils/100 WBC (Bld) 0.9 % [facility] Erythrocyte distribution width (RBC) [Ratio] 13.8 % 11.5 - 15 % [facility] Hematocrit (Bld) [Volume fraction] 40.7 % 39 - 50 % [facility] Hemoglobin (Bld) [Mass/Vol] 14.1 g/dL 13 - 17 g/dL [facility] Lymphocytes (Bld) [#/Vol] 1.5 10*3/uL 1.0 - 3.5 10*3/uL [facility] Lymphocytes/100 WBC (Bld) 28.5 % [facility] MCH (RBC) [Entitic mass] 30.9 pg 27 - 34 pg [facility] MCHC (RBC) [Mass/Vol] 34.7 g/dL 32 - 3 6 g/dL [facility] MCV (RBC) [Entitic vol] 89 fL 80 - 100 fL [facility] Monocytes (Bld) [#/Vol] 0.6 10*3/uL 0.0 - 0.9 10*3/uL [facility] Monocytes/100 WBC (Bld) 12 % [facility] Neutrophils (Bld) [#/Vol] 3 10*3/uL 1.5 - 6.6 10*3/uL [facility] Neutrophils/100 WBC (Bld) 57.5 % [facility] Platelet mean volume (Bld) [Entitic vol] 9.7 fL 7 - 12 fL [facility] Platelets (Bld) [#/Vol] 189 10*3/uL [facility] RBC (Bld) [#/Vol] 4.56 10*6/uL [facility] WBC LM Ql (Sput) 5.[address] [facility] CK Totalon 06-21-2025 CK [Catalytic activity/Vol] 26 U/L 24 - 195 U/L [facility] Interpretation and review of laboratory results Normal [facility] CT Head WO contraston 2024 Examination: [...] Esau Restrepo MD on 06/21/2025 10:56 AM SECTRAEsau Majano MD - 06/21/2025 Examination: Noncontrast brain CT [...] Esau Restrepo MD on 06/21/2025 10:56 AM [facility] Radiology Study observation (narrative) [facility] CT Head WO contrastOrdered B y: Esau Restrepo on 06-21-2025 [facility] Work Phone: Electrolyte panelon 06-21-20 25 Anion gap [Moles/Vol] 8 mmol/L 5 - 15 mmol/L [facility] Chloride [Moles/Vol] 92 mmol/L Low 98 - 10 9 mmol/L [facility] CO2 [Moles/Vol] 26 mmol/L 22 - 32 mmol/L [facility] Interpretation and review of laboratory results Abnormal [facility] Potassium [Moles/Vol] 4.8 mmol/L 3.5 - 5.0 mmol/L [facility] Sodium [Moles/Vol] 126 mmol/L Low 134 - 146 mmol/L [facility] Anion gap [Moles/Vol] 9 mmol/L 5 - 15 mmol/L [facility] Chloride [Moles/Vol] 93 mmol/L Low 98 - 10 9 mmol/L [facility] CO2 [Moles/Vol] 25 mmol/L 22 - 32 mmol/L [facility] Interpretation and review of laboratory results Abnormal [facility] Potassium [Moles/Vol] 4.4 mmol/L 3.5 - 5.0 mmol/L [facility] Sodium [Moles/Vol] 127 mmol/L Low 134 - 146 mmol/L [facility] Anion gap [Moles/Vol] 9 mmol/L 5 - 15 mmol/L [facility] Chloride [Moles/Vol] 90 mmol/L Low 98 - 10 9 mmol/L [facility] CO2 [Moles/Vol] 25 mmol/L 22 - 32 mmol/L [facility] Interpretation and review of laboratory results Abnormal [facility] Potassium [Moles/Vol] 4.6 mmol/L 3.5 - 5.0 mmol/L [facility] Sodium [Moles/Vol] 124 mmol/L Low 134 - 146 mmol/L [facility] Erythrocyte Sedimentation Ra te (ESR)on 06-21-2025 ESR (Bld) [Velocity] 46 mm/h High 0 - 20 mm/h [facility] Interpretation and review of laboratory results Abnormal [facility] Gas panel (BldV)on Arterial patency Wrist artery --pre arterial puncture N/A [facility] Base excess Calc (Bld) [Moles/Vol] 2 mmol/L 0.0 - 2.0 mmol/L [facility] CO2 (BldV) [Partial pressure] 51.8 mm[Hg] High [facility] HCO3 (Bld) [Moles/Vol] 28.7 mmol/L High 20.0 - 24.0 mmol/L [facility] Interpretation and review of laboratory results Abnormal [facility] Oxygen (BldV) [Partial pressure] 29 mm[Hg] Low [facility] Oxygen therapy source and amount [CARE] Room Air [facility] Oxygen/Inspired gas setting [Volume Fraction] Ventilator 21 % [facility] pH (BldV) 7.351 [pH] 7.320 - 7.420 [facility] SaO2% Calculated from oxygen partial pressure (BldV) [Mass fraction] 50 % [facility] Specimen site Narrative N/A [facility] Specimen type Nom (Spec) VENOUS [facility] No Panel Informationon 06-21 [facility] Protime & INRon 06-21-2025 INR Coag (Platelet poor plasma or blood) [Relative time] 1.6 High 0.9 - 1.2 [facility] Interpretation and review of laboratory results Abnormal [facility] PT Coag (PPP) [Time] 17.7 s High [facility] Anti XA unfractionated hepar inon 06-20-2025 Heparin unfractionated Chromogenic method Qn (PPP) 0.62 [facility] Comment on above: Optimal time for raimundo ting is 6 hrs post dosage This test is specific for monitoring patients on UFH, and is not recommended for use with other Anti-Xa medications. Interpretation and review of laboratory results Normal [facility] Basic Metabolic Panelon Anion gap [Moles/Vol] 8 mmol/L 5 - 15 mmol/L [facility] Calcium [Mass/Vol] 9 mg/dL 8.5 - 10. 5 mg/dL [facility] Chloride [Moles/Vol] 89 mmol/L Low 98 - 10 9 mmol/L [facility] CO2 [Moles/Vol] 27 mmol/L 22 - 32 mmol/L [facility] Creatinine [Mass/Vol] 0.73 mg/dL 0.60 - 1.30 mg/dL [facility] Comment on above: METHOD TRACEABLE TO IDMS STANDARD EGFR Non-Race Dependent 90 - PINF [facility] Comment on above: Reported eGFR is bas ed on the CKD-EPI 2020 equation that does not use a race coefficient. Glucose [Mass/Vol] 98 mg/dL 65 - 99 mg/dL [facility] Potassium [Moles/Vol] 4.3 mmol/L 3.5 - 5.0 mmol/L [facility] Sodium [Moles/Vol] 124 mmol/L Low 134 - 146 mmol/L [facility] Urea nitrogen [Mass/Vol] 12 mg/dL 5 - 27 mg/dL [facility] CBC auto differentialon 08-0 Basophils (Bld) [#/Vol] 0.1 10*3/uL 0.0 - 0.2 10*3/uL [facility] Basophils/100 WBC (Bld) 1 % [facility] Differential cell count method Nom (Bld) AUTOMATED DIFFERENTIAL [facility] Eosinophils (Bld) [#/Vol] 0.1 10*3/uL 0.0 - 0.4 10*3/uL [facility] Eosinophils/100 WBC (Bld) 1.2 % [facility] Erythrocyte distribution width (RBC) [Ratio] 13.8 % 11.5 - 15 % [facility] Hematocrit (Bld) [Volume fraction] 38.1 % Low 39 - 50 % [facility] Hemoglobin (Bld) [Mass/Vol] 13.3 g/dL 13 - 17 g/dL [facility] Interpretation and review of laboratory results Abnormal [facility] Lymphocytes (Bld) [#/Vol] 1.5 10*3/uL 1.0 - 3.5 10*3/uL [facility] Lymphocytes/100 WBC (Bld) 22.4 % [facility] MCH (RBC) [Entitic mass] 31.3 pg 27 - 34 pg [facility] MCHC (RBC) [Mass/Vol] 34.9 g/dL 32 - 3 6 g/dL [facility] MCV (RBC) [Entitic vol] 90 fL 80 - 100 fL [facility] Monocytes (Bld) [#/Vol] 0.7 10*3/uL 0.0 - 0.9 10*3/uL [facility] Monocytes/100 WBC (Bld) 10.7 % [facility] Neutrophils (Bld) [#/Vol] 4.2 10*3/uL 1.5 - 6.6 10*3/uL [facility] Neutrophils/100 WBC (Bld) 64.7 % [facility] Platelet mean volume (Bld) [Entitic vol] 9.5 fL 7 - 12 fL [facility] Platelets (Bld) [#/Vol] 204 10*3/uL [facility] RBC (Bld) [#/Vol] 4.25 10*6/uL [facility] WBC LM Ql (Sput) 6.5 [facility] DISCONTINUE IN PROCESS EEG T ESTINGOrdered By: Documentation Systemgenerated on 06-20-2025 [facility] Work Phone: Electrolyte panelon 06-20-20 25 Anion gap [Moles/Vol] 8 mmol/L 5 - 15 mmol/L [facility] Chloride [Moles/Vol] 90 mmol/L Low 98 - 10 9 mmol/L [facility] CO2 [Moles/Vol] 24 mmol/L 22 - 32 mmol/L [facility] Interpretation and review of laboratory results Abnormal [facility] Potassium [Moles/Vol] 4.8 mmol/L 3.5 - 5.0 mmol/L [facility] Sodium [Moles/Vol] 122 mmol/L Low 134 - 146 mmol/L [facility] Anion gap [Moles/Vol] 8 mmol/L 5 - 15 mmol/L [facility] Chloride [Moles/Vol] 90 mmol/L Low 98 - 10 9 mmol/L [facility] CO2 [Moles/Vol] 24 mmol/L 22 - 32 mmol/L [facility] Interpretation and review of laboratory results Abnormal [facility] Potassium [Moles/Vol] 4.6 mmol/L 3.5 - 5.0 mmol/L [facility] Sodium [Moles/Vol] 122 mmol/L Low 134 - 146 mmol/L [facility] Anion gap [Moles/Vol] 8 mmol/L 5 - 15 mmol/L [facility] Chloride [Moles/Vol] 90 mmol/L Low 98 - 10 9 mmol/L [facility] CO2 [Moles/Vol] 24 mmol/L 22 - 32 mmol/L [facility] Interpretation and review of laboratory results Abnormal [facility] Potassium [Moles/Vol] 4.3 mmol/L 3.5 - 5.0 mmol/L [facility] Sodium [Moles/Vol] 122 mmol/L Low 134 - 146 mmol/L [facility] Holter monitor studyon 06-20 Images from the original result were not included. Continuous video EEG monitoring study Date of Report: 06/20/2025 History: This is a n 85 yo man with altered mental status, concern for seizures. Procedure: Start: 20:37 06/19/2025 End: 06:30 06/20/2025 This is a standard [facility] EEG monitoring report using scalp and [...] or primary neurological disorders. Yaquelin Esparza MD [employer] Neurology/Neurophysi ology [place] [facility] MANUALLY TRANSCRIBED RESULTS [facility] Lavender Topon 06-20-2025 Extra Tube Auto [facility]ed [facility] No Panel Informationon 06-20 [facility] Interpretation and review of laboratory results Abnormal [facility] Osmolality, urineOrdered By: Dixon Rodriguez on 06-20-2025 Interpretation and review of laboratory results Normal [facility] Osmolality (U) [Osmolality] 565 mosm/kg [facility] Protime & INRon 06-20-2025 INR Coag (Platelet poor plasma or blood) [Relative time] 1.3 High 0.9 - 1.2 [facility] PT Coag (PPP) [Time] 15 s High [facility] Sodium, urine, randomon Sodium (U) [Moles/Vol] 64 mmol/L [facility] Thyroid profile includes TSH FT4on 06-20-2025 Free T4 [Mass/Vol] 1.13 ng/dL 0.61 - 1. 60 ng/dL [facility] Interpretation and review of laboratory results Abnormal [facility] TSH Qn 4.83 m[IU]/L High [facility] Uric acidon 06-20-2025 Interpretation and review of laboratory results Normal [facility] Urate [Mass/Vol] 4.4 mg/dL 2.6 - 7.2 mg/dL [facility] Urine Creatinine,randomon Creatinine (U) [Mass/Vol] 150.26 mg/dL [facility] Anti XA unfractionated hepar inon 06-19-2025 Heparin unfractionated Chromogenic method Qn (PPP) 0.64 [facility] Comment on above: Optimal time for raimundo ting is 6 hrs post dosage This test is specific for monitoring patients on UFH, and is not recommended for use with other Anti-Xa medications. Interpretation and review of laboratory results Normal [facility] Anti XA unfractionated hepar inOrdered By: Barbra Howell on 06-19-2025 Heparin unfractionated Chromogenic method Qn (PPP) 0.6 [facility] Comment on above: Optimal time for raimundo ting is 6 hrs post dosage This test is specific for monitoring patients on UFH, and is not recommended for use with other Anti-Xa medications. Interpretation and review of laboratory results Normal [facility] Basic Metabolic Panelon Anion gap [Moles/Vol] 9 mmol/L 5 - 15 mmol/L [facility] Calcium [Mass/Vol] 8.8 mg/dL 8.5 - 10. 5 mg/dL [facility] Chloride [Moles/Vol] 88 mmol/L Low 98 - 10 9 mmol/L [facility] CO2 [Moles/Vol] 26 mmol/L 22 - 32 mmol/L [facility] Creatinine [Mass/Vol] 0.73 mg/dL 0.60 - 1.30 mg/dL [facility] Comment on above: METHOD TRACEABLE TO IDMS STANDARD EGFR Non-Race Dependent 90 - PINF [facility] Comment on above: Reported eGFR is bas ed on the CKD-EPI 2020 equation that does not use a race coefficient. Glucose [Mass/Vol] 104 mg/dL High 65 - 99 mg/dL [facility] Interpretation and review of laboratory results Abnormal [facility] Potassium [Moles/Vol] 4.3 mmol/L 3.5 - 5.0 mmol/L [facility] Sodium [Moles/Vol] 123 mmol/L Low 134 - 146 mmol/L [facility] Urea nitrogen [Mass/Vol] 10 mg/dL 5 - 27 mg/dL [facility] CBC auto differentialon Basophils (Bld) [#/Vol] 0.1 10*3/uL 0.0 - 0.2 10*3/uL [facility] Basophils/100 WBC (Bld) 0.7 % [facility] Differential cell count method Nom (Bld) AUTOMATED DIFFERENTIAL [facility] Eosinophils (Bld) [#/Vol] 0.1 10*3/uL 0.0 - 0.4 10*3/uL [facility] Eosinophils/100 WBC (Bld) 1.1 % [facility] Erythrocyte distribution width (RBC) [Ratio] 13.5 % 11.5 - 15 % [facility] Hematocrit (Bld) [Volume fraction] 38.7 % Low 39 - 50 % [facility] Hemoglobin (Bld) [Mass/Vol] 13.4 g/dL 13 - 17 g/dL [facility] Interpretation and review of laboratory results Abnormal [facility] Lymphocytes (Bld) [#/Vol] 1.3 10*3/uL 1.0 - 3.5 10*3/uL [facility] Lymphocytes/100 WBC (Bld) 16 % [facility] MCH (RBC) [Entitic mass] 31.1 pg 27 - 34 pg [facility] MCHC (RBC) [Mass/Vol] 34.6 g/dL 32 - 3 6 g/dL [facility] MCV (RBC) [Entitic vol] 90 fL 80 - 100 fL [facility] Monocytes (Bld) [#/Vol] 1 10*3/uL High 0.0 - 0.9 10*3/uL [facility] Monocytes/100 WBC (Bld) 12.6 % [facility] Neutrophils (Bld) [#/Vol] 5.5 10*3/uL 1.5 - 6.6 10*3/uL [facility] Neutrophils/100 WBC (Bld) 69.6 % [facility] Platelet mean volume (Bld) [Entitic vol] 8.8 fL 7 - 12 fL [facility] Platelets (Bld) [#/Vol] 200 10*3/uL [facility] RBC (Bld) [#/Vol] 4.31 10*6/uL [facility] WBC LM Ql (Sput) 7.9 [facility] [employer] System Cardiac echo study Procedure Ordered By: Abel Gross on 06-19-2025 Est. RA pressure 15 mmHg [facility] Work Phone: [facility] Work Phone: Cardiac echo study Procedure on [...] globally hypokinetic. [facility] Radiology Study observation (narrative) [facility] Electrolyte panelon 06-19-20 25 Anion gap [Moles/Vol] 7 mmol/L 5 - 15 mmol/L [facility] Chloride [Moles/Vol] 89 mmol/L Low 98 - 10 9 mmol/L [facility] CO2 [Moles/Vol] 24 mmol/L 22 - 32 mmol/L [facility] Interpretation and review of laboratory results Abnormal [facility] Potassium [Moles/Vol] 4.7 mmol/L 3.5 - 5.0 mmol/L [facility] Sodium [Moles/Vol] 120 mmol/L Low 134 - 146 mmol/L [facility] Magnesiumon 06-19-2025 Interpretation and review of laboratory results Normal [facility] Magnesium [Mass/Vol] 2.3 mg/dL 1.8 - 2 .6 mg/dL [facility] No Panel Informationon 06-19 [facility] [place] Carotid arteries - bilate ralon 06-19-2025 [...] at the phone number beside their name. [facility] Radiology Study observation (narrative) [facility] [place] Carotid arteries - bilate ralOrdered By: Abel Ballesteros on 06-19-[address]25 [facility] [employer] Work Phone: APTTon 06-18-2025 aPTT Coag (PPP) [Time] [address] [facility] Interpretation and review of laboratory results Normal [facility] Anti XA unfractionated hepar inon 06-18-2025 Heparin unfractionated Chromogenic method Qn (PPP) 0.26 Low [facility] Comment on above: Optimal time for raimundo ting is 6 hrs post dosage This test is specific for monitoring patients on UFH, and is not recommended for use with other Anti-Xa medications. Interpretation and review of laboratory results Abnormal [facility] Basic Metabolic Panelon 08-0 Anion gap [Moles/Vol] 10 mmol/L 5 - 15 mmol/L [facility] Calcium [Mass/Vol] 9.1 mg/dL 8.5 - 10. 5 mg/dL [facility] Chloride [Moles/Vol] 93 mmol/L Low 98 - 10 9 mmol/L [facility] CO2 [Moles/Vol] 24 mmol/L 22 - 32 mmol/L [facility] Creatinine [Mass/Vol] 0.71 mg/dL 0.60 - 1.30 mg/dL [facility] Comment on above: METHOD TRACEABLE TO IDMS STANDARD EGFR Non-Race Dependent - PINF [facility] Comment on above: Reported eGFR is bas ed on the CKD-EPI 2020 equation that does not use a race coefficient. Glucose [Mass/Vol] 81 mg/dL 65 - 99 mg/dL [facility] Interpretation and review of laboratory results Abnormal [facility] Potassium [Moles/Vol] 4.3 mmol/L 3.5 - 5.0 mmol/L [facility] Sodium [Moles/Vol] 127 mmol/L Low 134 - 146 mmol/L [facility] Urea nitrogen [Mass/Vol] 10 mg/dL 5 - 27 mg/dL [facility] Bedside Glucose *Place/Obtai n serum glucose if >500 per glucometer.on 06-18-2025 Glucose [Mass/Vol] 154 mg/dL High 65 - 99 mg/dL [facility] Interpretation and review of laboratory results Abnormal [facility] CBC auto differentialon Basophils (Bld) [#/Vol] 0.1 10*3/uL 0.0 - 0.2 10*3/uL [facility] Basophils/100 WBC (Bld) 1.5 % [facility] Differential cell count method Nom (Bld) AUTOMATED DIFFERENTIAL [facility] Eosinophils (Bld) [#/Vol] 0.2 10*3/uL 0.0 - 0.4 10*3/uL [facility] Eosinophils/100 WBC (Bld) 3.7 % [facility] Erythrocyte distribution width (RBC) [Ratio] 13.3 % 11.5 - 15 % [facility] Hematocrit (Bld) [Volume fraction] 36 % Low 39 - 50 % [facility] Hemoglobin (Bld) [Mass/Vol] 12.7 g/dL Low 13 - 17 g/dL [facility] Interpretation and review of laboratory results Abnormal [facility] Lymphocytes (Bld) [#/Vol] 1.2 10*3/uL 1.0 - 3.5 10*3/uL [facility] Lymphocytes/100 WBC (Bld) 22.7 % [facility] MCH (RBC) [Entitic mass] 31.5 pg 27 - 34 pg [facility] MCHC (RBC) [Mass/Vol] 35.4 g/dL 32 - 3 6 g/dL [facility] MCV (RBC) [Entitic vol] 89 fL 80 - [address] [facility] Monocytes (Bld) [#/Vol] 0.6 10*3/uL 0.0 - 0.9 10*3/uL [facility] Monocytes/100 WBC (Bld) 11.6 % [facility] Neutrophils (Bld) [#/Vol] 3.3 10*3/uL 1.5 - 6.6 10*3/uL [facility] Neutrophils/100 WBC (Bld) 60.5 % [facility] Platelet mean volume (Bld) [Entitic vol] 9.5 fL 7 - [address] [facility] Platelets (Bld) [#/Vol] 251 10*3/uL [facility] RBC (Bld) [#/Vol] 4.05 10*6/uL Low [facility] WBC LM Ql (Sput) 5.4 [facility] EEGon 06-18-2025 Images from the original result [...] or primary neurological disorders. Yaquelin Esparza MD Ju[employer] Officer Neurology/Neurophysi ology [place] [facility] MANUALLY TRANSCRIBED RESULTS EEGOrdered By: Yaquelin Esparza on 06-18-2025 [facility] [employer] Work Phone: Hemoglobinon 06-18-2025 Hemoglobin (Bld) [Mass/Vol] 13.9 g/dL 13 - 17 g/dL [facility] Hemoglobin A1con 06-18-2025 Average glucose Estimated from glycated hemoglobin (Bld) [Mass/Vol] 117 mg/dL [facility] HbA1c (Bld) [Mass fraction] 5.7 % High 4.4 - 5.6 % [facility] Comment on above: ADA Guidelines Result HgbA1c Normal : less than 5.7 % Prediabetes : 5.7 % to 6.4 % Diabetes : > 6.4 % Use with caution in patients with abnormal hemoglobin variants as the half-life of red blood cells and in vivo glycation rates are affected. Interpretation and review of laboratory results Abnormal [facility] Lipid profileon 06-18-2025 Cholesterol [Mass/Vol] 150 mg/dL 150 - 200 mg/dL [facility] Cholesterol in HDL [Mass/Vol] 41 mg/dL 39 - PINF mg/dL [facility] Comment on above: HDL <40 mg/dL - High Risk HDL > or = 40mg/dL- Desirable HDL >60 mg/dL - Negative Risk Cholesterol in HDL [Mass/Vol] 3.7 mg/dL 1.0 - 5.0 [facility] Cholesterol in LDL [Mass/Vol] 95 mg/dL NINF - 130 mg/dL [facility] Comment on above: LDL <100 mg/dL - Carlos A irable LDL >160 mg/dL - High Risk Cholesterol in VLDL [Mass/Vol] 14 mg/dL 0 - 30 mg/dL [facility] Interpretation and review of laboratory results Normal [facility] Triglyceride [Mass/Vol] 70 mg/dL 27 - 150 mg/dL [facility] MR Brain WO contraston 06-18 HISTORY: An [...] Ray Vaughn MD on 06/18/2025 9:50 AM [facility] Ray Vaughn MD - 06/18/2025 HISTORY: An [...] Ray Vaughn MD on 06/18/2025 9:50 AM [facility] Radiology Study observation (narrative) [facility] MR Brain WO contrastOrdered By: Ray Vaughn on 06-18-2025 [facility] Work Phone: Magnesiumon 06-18-2025 Interpretation and review of laboratory results Abnormal [facility] Magnesium [Mass/Vol] 1.6 mg/dL Low 1.8 - 2 .6 mg/dL [facility] No Panel Informationon 06-18 Interpretation and review of laboratory results Normal [facility] OsmolalityOrdered By: Elisa erickson on 06-18-2025 Interpretation and review of laboratory results Abnormal [facility] Osmolality [Osmolality] 261 mosm/kg Low [facility] PST TOPon 06-18-2025 Extra Tube Auto Resulted [facility] Platelet counton 06-18-2025 Platelet mean volume (Bld) [Entitic vol] 8.7 fL 7 - 12 fL [facility] Platelets (Bld) [#/Vol] 214 10*3/uL [facility] Protime & INRon 06-18-2025 INR Coag (Platelet poor plasma or blood) [Relative time] 1.1 0.9 - 1.2 [facility] Interpretation and review of laboratory results Normal [facility] PT Coag (PPP) [Time] 13 s [facility] INR Coag (Platelet poor plasma or blood) [Relative time] 1.1 0.9 - 1.2 [facility] Interpretation and review of laboratory results Normal [facility] PT Coag (PPP) [Time] 13 s [facility] Bedside Glucose *Place/Obtai n serum glucose if >500 per glucometer.on 06-17-2025 Glucose [Mass/Vol] 111 mg/dL High 65 - 99 mg/dL [facility] Interpretation and review of laboratory results Abnormal [facility] CBC auto differentialon Basophils (Bld) [#/Vol] 0.1 10*3/uL 0.0 - 0.2 10*3/uL [facility] Basophils/100 WBC (Bld) 1.5 % [facility] Differential cell count method Nom (Bld) AUTOMATED DIFFERENTIAL [facility] Eosinophils (Bld) [#/Vol] 0.1 10*3/uL 0.0 - 0.4 10*3/uL [facility] Eosinophils/100 WBC (Bld) 3 % [facility] Erythrocyte distribution width (RBC) [Ratio] 13.8 % 11.5 - 15 % [facility] Hematocrit (Bld) [Volume fraction] 37.3 % Low 39 - 50 % [facility] Hemoglobin (Bld) [Mass/Vol] 13 g/dL 13 - 17 g/dL [facility] Interpretation and review of laboratory results Abnormal [facility] Lymphocytes (Bld) [#/Vol] 1.3 10*3/uL 1.0 - 3.5 10*3/uL [facility] Lymphocytes/100 WBC (Bld) 27.2 % [facility] MCH (RBC) [Entitic mass] 31.2 pg 27 - 34 pg [facility] MCHC (RBC) [Mass/Vol] 34.8 g/dL 32 - 3 6 g/dL [facility] MCV (RBC) [Entitic vol] 90 fL 80 - 100 fL [facility] Monocytes (Bld) [#/Vol] 0.5 10*3/uL 0.0 - 0.9 10*3/uL [facility] Monocytes/100 WBC (Bld) 10.1 % [facility] Neutrophils (Bld) [#/Vol] 2.8 10*3/uL 1.5 - 6.6 10*3/uL [facility] Neutrophils/100 WBC (Bld) 58.2 % [facility] Platelet mean volume (Bld) [Entitic vol] 9.4 fL 7 - 12 fL [facility] Platelets (Bld) [#/Vol] 193 10*3/uL [facility] RBC (Bld) [#/Vol] 4.17 10*6/uL [facility] WBC LM Ql (Sput) 4.8 [facility] [place] [facility] CT perfusion Headon 06-17-20 CT CEREBRAL PERF [...] Nico Dempsey MD on 06/17/2025 5:08 PM [facility] - 06/17/2025 CT CEREBRAL [...] Nico Dempsey MD on 06/17/2025 5:08 PM [facility] Radiology Study observation (narrative) [facility] CT perfusion HeadOrdered By: Nico Dempsey on 06-17-2025 [facility] Work Phone: Comprehensive metabolic pane patricio 06-17-2025 Albumin [Mass/Vol] 3.9 g/dL 3.2 - 5.3 g/dL [facility] ALP [Catalytic activity/Vol] 81 U/L 39 - 130 U/L [facility] ALT No additional P-5'-P [Catalytic activity/Vol] 11 U/L NINF - 40 U/L [facility] Anion gap [Moles/Vol] 8 mmol/L 5 - 15 mmol/L [facility] AST [Catalytic activity/Vol] 20 U/L NINF - 41 U/L [facility] Bilirubin [Mass/Vol] 1.1 mg/dL 0.3 - 1 .2 mg/dL [facility] Calcium [Mass/Vol] 9.2 mg/dL 8.5 - 10. 5 mg/dL [facility] Chloride [Moles/Vol] 93 mmol/L Low 98 - 10 9 mmol/L [facility] CO2 [Moles/Vol] 26 mmol/L 22 - 32 mmol/L [facility] Creatinine [Mass/Vol] 0.75 mg/dL 0.60 - 1.30 mg/dL [facility] Comment on above: METHOD TRACEABLE TO IDMS STANDARD EGFR Non-Race Dependent 90 - PINF [facility] Comment on above: Reported eGFR is bas ed on the CKD-EPI 2020 equation that does not use a race coefficient. Glucose [Mass/Vol] 94 mg/dL 65 - 99 mg/dL [facility] Potassium [Moles/Vol] 4.5 mmol/L 3.5 - 5.0 mmol/L [facility] Protein [Mass/Vol] 6.5 g/dL 6.0 - 8.0 g/dL [facility] Sodium [Moles/Vol] 127 mmol/L Low 134 - 146 mmol/L [facility] Urea nitrogen [Mass/Vol] 10 mg/dL 5 - 27 mg/dL [facility] Magnesiumon 06-17-2025 Magnesium [Mass/Vol] 1.7 mg/dL Low 1.8 - 2 .6 mg/dL [facility] No Panel Informationon 06-17 Interpretation and review of laboratory results Abnormal [facility] Phosphoruson 06-17-2025 Interpretation and review of laboratory results Normal [facility] Phosphate [Mass/Vol] 3.3 mg/dL 2.4 - 4 .9 mg/dL [facility] Population Healthon 06-14-20 25 [facility] Case Information Case Priority: None Programs: -- Referral Source: Fiscal Manager Referral Reason: Care coordination Case Type: Transition [...] Care Plan Progress Note Admit Date: 06/12/25 [facility] Discharge Date: 06/13/25 Follow-up appointment scheduled? yes, TCM with PCPPedro 06/19/25 at 1340 Did you understand your discharge instructions? yes Are you able to follow them? yes Did you receive new medications? yes, ASA 81 mg QD. stop; lisinopril, meloxicam Have you filled the Rx's? 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 Normal [facility] CMPon 06-07-2025 Albumin [Mass/Vol] 4.1 g/dL Normal 3.3-5.0 [facility] Comment on above: Performed By: #### 2 [id number] #### [facility] [address] [place] [address] Albumin/Globulin [Mass ratio] 1.6 {ratio} Normal 1.1-2.2 [facility] Comment on above: Performed By: #### 2 [id number] #### [facility] [address] [place] [address] Alk Phos 86 Int._Unit/L Normal 21-98 [facility] Comment on above: Performed By: #### 2 [id number] #### [facility] [address] [place] [address] ALT 12 Int._Unit/L Normal 6-46 [facility] Comment on above: Performed By: #### 2 [id number] #### [facility] [address] [place] [address] Anion gap [Moles/Vol] 9 mmol/L Normal 6-16 [facility] Comment on above: Performed By: #### 2 [id number] #### [facility] [address] [place] [address] AST 24 Int._Unit/L Normal 5-43 [facility] Comment on above: Performed By: #### 2 [id number] #### [facility] [address] [place] [address] Bili Total 1.0 mg/dL Normal 0.0-1.1 [facility] Comment on above: Performed By: #### 2 [id number] #### [facility] [address] [place] [address] BUN/Creat Ratio 26 No Units High 10-20 [facility] Comment on above: Performed By: #### 2 [id number] #### [facility] [address] [place] [address] Calcium [Mass/Vol] 9.8 mg/dL Normal 8.9-11.1 [facility] Comment on above: Performed By: #### 2 [id number] #### [facility] [address] [place] [address] Chloride [Moles/Vol] 95 mmol/L Low 101-111 [facility] Comment on above: Performed By: #### 2 [id number] #### [facility] [address] [place] [address] CO2 [Moles/Vol] 27 mmol/L Normal 21-31 [facility] Comment on above: Performed By: #### 2 [id number] #### [facility] [address] [place] [address] Creatinine [Mass/Vol] 1.1 mg/dL Normal 0.5-1.3 [facility] Comment on above: Performed By: #### 2 [id number] #### [facility] [address] [place] [address] Globulin (S) [Mass/Vol] 2.6 g/dL Normal 1.4-4.0 [facility] Comment on above: Performed By: #### 2 [id number] #### [facility] [address] [place] [address] Glucose [Mass/Vol] 190 mg/dL Normal 55-199 [facility] Comment on above: Performed By: #### 2 [id number] #### [facility] [address] [place] [address] Potassium [Moles/Vol] 4.2 mmol/L Normal 3.5-5.3 [facility] Comment on above: Performed By: #### 2 [id number] #### [facility] [address] [place] [address] Protein [Mass/Vol] 6.7 g/dL Normal 6.0-7.8 [facility] Comment on above: Performed By: #### 2 [id number] #### [facility] [address] [place] [address] Sodium [Moles/Vol] 127 mmol/L Low 135-145 [facility] Comment on above: Performed By: #### 2 [id number] #### [facility] [address] [place] [address] Urea nitrogen [Mass/Vol] 29 mg/dL High 5-21 [facility] Comment on above: Performed By: #### 2 [id number] #### [facility] [address] [place] [address] Family Medicine Office/Clini c Noteon 06-07-2025 Family Medicine Office/Clinic Note Family Medicine Office/Clinic Note Chief Complaint Discuss Medications The patient presents for a follow-up after hospitalization due to a nasal fracture. HPI Staff Former Dr Garcia pt. Pt presents today to follow up to hospitalization in [place]. Fell and hit his nose. Went to [facility] ER due to excessive bleeding. They packed it and DC'd pt. Upon arrival home, nose started bleeding again. Pt went back to [place], [place]. He was then transferred to [facility] in [place] where they admitted him for 3-4days. Sodium was dc'd. And pt was started on Lisinopril & Keflex & Ure-NA History of Present Illness 85-year-old male presents with his following a recent hospital stay for a nasal fracture. The incident occurred when the patient fell while attempting to lacey his stomach, resulting in a nasal fracture and subsequent bleeding. He was initially treated at [facility] with nasal packing and later transferred to [facility] for further management. During hospitalization, the patient [...] Hypo-osmolality and hyponatremia) - Reviewed documents from [facility] in [place] - Sodium level on discharge 127 - Awaiting laboratory results - f/u in one week Ordered: Non-Formulary Medication, Ure-Na, See Instructions, 15 packet(s), 0, Natural Lemon [place] flavor, [id number], Supply, 178.6, cm, 06/07/25 [...] See Instructions, 15 packet(s), 0, Natural Lemon [place] flavor, [id number], Supply, 178.6, cm, 06/07/25 10:56:00 EDT, Height/Length Dosing, 74.3, kg, 06/07/25 10:56:00 EDT, Weight Dosing 4. Nonsmoker (Z78.9: Other specified health status) Encouraged to continue as a non-smoker Ordered: Non-Formulary Medication, Ure-Na, See Instructions, 15 packet(s), 0, Natural Lemon [place] flavor, [id number], Supply, 178.6, cm, 06/07/25 10:56:00 EDT, Height/Length Dosing, 74.3, kg, 06/07/25 10:56:00 EDT, Weight Dosing total time spent preparing the chart, conducting of the encounter with the patient and family and time spent documenting, reviewing, and ordering tests was 40 minutes. Follow-up With When Contact Information YANIQUE MCNEILL CNP, FAM In 6 days 06/13/2025 EDT [address] [place] [address] Business (1) Additional Instructions: Patient Education Hyponatremia, Sjby-ei-Nnrx Problem List/Past Medical History Ongoing ASCVD (arteriosclerotic cardiovascular disease) Back spasm BMI 23.0-23.9, adult BMI 25.0-25.9,adult Carpal tunnel syndrome, left DM type 2 causing vascular disease Encounter for surveillance of abnormal nevi Erectile dysfunction due to arterial insufficiency Hard of hearing Hyperlipidemia Hyponatremia Hypothyroid Longstanding persistent atrial fibrillation Non (more content not included)... Normal [facility] Comment on above: Result Comment: Elec tronically Signed By: YANIQUE MCNEILL CNP\.br\Date and Time Signed: 06/07/25 14:35 EDT eGFRon 06-07-2025 eGFR 67 mL/min/1.73 m2 Normal >=59 [facility] Comment on above: Performed By: #### 1 [id number] #### [facility] [address] [place] [address] Basic Metabolic Panelon 05-15 Anion gap [Moles/Vol] 12 mmol/L 9 - 16 mmol/L [facility] Calcium [Mass/Vol] 9.2 mg/dL 8.6 - 10. 4 mg/dL [facility] Chloride [Moles/Vol] 95 mmol/L Low 98 - 10 7 mmol/L [facility] CO2 [Moles/Vol] 19 mmol/L Low 20 - 31 mmol/L [facility] Creatinine [Mass/Vol] 0.8 mg/dL 0.7 - 1.2 mg/dL [facility] Jesu Appiaht Rate 88 - PINF [facility] Comment on above: These results are [...] 112 mg/dL High 74 - 99 mg/dL [facility] Interpretation and review of laboratory results Abnormal [facility] Potassium [Moles/Vol] 4.5 mmol/L 3.7 - 5.3 mmol/L [facility] Comment on above: Specimen hemolysis h as exceeded the interference as defined by Sindy. Value may be falsely increased. Suggest recollection if clinically indicated. Sodium [Moles/Vol] 126 mmol/L Low 136 - 145 mmol/L [facility] Urea nitrogen [Mass/Vol] 13 mg/dL 8 - 23 mg/dL [facility] Basic Metabolic Profon 06-05 Anion gap [Moles/Vol] 12 mmol/L Normal 9-16 [facility] Comment on above: Performed By: #### P T, BMP #### [facility] [address] [place], [place] [address] Property Claims Adjuster: Pankaj Cordoba MD Calcium [Mass/Vol] 9.2 mg/dL Normal 8.6-10.4 [facility] Comment on above: Performed By: #### P T, BMP #### [facility] [address] [place] [address] Property Claims Adjuster: Pankaj Cordoba MD Chloride [Moles/Vol] 95 mmol/L Low 98-107 [facility] Comment on above: Performed By: #### P T, BMP #### [address] [address] Property Claims Adjuster: Pankaj Cordoba MD CO2 [Moles/Vol] 19 mmol/L Low 20-31 [facility] Comment on above: Performed By: #### P T, BMP #### [address] [address] Property Claims Adjuster: Pankaj Cordoba MD Creatinine [Mass/Vol] 0.8 mg/dL Normal 0.7-1.2 [facility] Comment on above: Performed By: #### P T, BMP #### [address] [address] Property Claims Adjuster: Pankaj Cordoba MD GFR/1.73 sq M.predicted among non-blacks MDRD (S/P/Bld) [Vol rate/Area] 88 mL/min/{1.73_m2} Normal >60 [facility] Comment on above: Result Comment: These [...] Performed By: #### P T, BMP #### [address] [address] Property Claims Adjuster: Pankaj Cordoba MD Glucose [Mass/Vol] 112 mg/dL High 74-99 [facility] Comment on above: Performed By: #### P T, BMP #### [address] [address] Property Claims Adjuster: Pankaj Cordoba MD Potassium [Moles/Vol] 4.5 mmol/L Normal 3.7-5.3 [facility] Comment on above: Result Comment: Spec imen hemolysis has exceeded the interference as defined by Sindy. Value may be falsely increased. Suggest recollection if clinically indicated. Performed By: #### P T, BMP #### [facility] [address] [place] [address] Property Claims Adjuster: Pankaj Cordoba MD Sodium [Moles/Vol] 126 mmol/L Low 136-145 [facility] Comment on above: Performed By: #### P T, BMP #### [facility] [address] [place] [address] Property Claims Adjuster: Pankaj Cordoba MD Urea nitrogen [Mass/Vol] 13 mg/dL Normal 07-06 [facility] Comment on above: Performed By: #### P T, BMP #### [facility] [address] [place] [address] Property Claims Adjuster: Pankaj Cordoba MD Electrolyte Panelon 06-05-20 Anion gap [Moles/Vol] 16 mmol/L 9 - 16 mmol/L [facility] [place] Chloride [Moles/Vol] 92 mmol/L Low 98 - 10 7 mmol/L [facility] [place] CO2 [Moles/Vol] 19 mmol/L Low 20 - 31 mmol/L [facility] [place] Interpretation and review of laboratory results Abnormal [facility] [employer] [place] Potassium [Moles/Vol] 4.4 mmol/L 3.7 - 5.3 mmol/L [facility] [place] Comment on above: Specimen hemolysis h as exceeded the interference as defined by Sindy. Value may be falsely increased. Suggest recollection if clinically indicated. Sodium [Moles/Vol] 127 mmol/L Low 136 - 145 mmol/L [facility] [place] [facility] [employer] [place] Electrolyteson 06-05-2025 Anion gap [Moles/Vol] 16 mmol/L Normal 9-16 [facility] Comment on above: Performed By: #### L YTE ####[facility] [address] [place] [address] Lab Director: Pankaj Cordoba MD Chloride [Moles/Vol] 92 mmol/L Low 98-107 [facility] Comment on above: Performed By: #### L YTE ####[facility] [address] [place] [address] Lab Director: Pankaj Cordoba MD CO2 [Moles/Vol] 19 mmol/L Low 20-31 [facility] Comment on above: Performed By: #### L YTE ####[facility] [id number] [place] [address] lab Director: Pankaj Cordoba MD Potassium [Moles/Vol] 4.4 mmol/L Normal 3.7-5.3 [facility] Comment on above: Result Comment: Spec imen hemolysis has exceeded the interference as defined by Sindy. Value may be falsely increased. Suggest recollection if clinically indicated. Performed By: #### L YTE ####[facility] [id number] [place] [address] Lab Director: Pankaj Cordoba MD Sodium [Moles/Vol] 127 mmol/L Low 136-145 [facility] Comment on above: Performed By: #### L YTE ####[facility] [id number] [place] [address] Lab Director: Pankaj Cordoba MD Glucose,Whole Bloodon 2024 Glucose [Mass/Vol] 145 mg/dL High 75-110 [facility] Glucose [Mass/Vol] 108 mg/dL Normal 75-110 [facility] POC Glucose Fingerstickon Glucose [Mass/Vol] 145 mg/dL High 75 - 110 mg/dL [facility] Interpretation and review of laboratory results Abnormal [facility] Glucose [Mass/Vol] 108 mg/dL 75 - 110 mg/dL [facility] PTon 06-05-2025 INR Coag (PPP) [Relative time] 1.9 {INR} Normal [facility] Comment on above: Result Comment: Therapeutic Range: Moderate Anticoagulant Intensity: INR = 2.0-3.0 High Anticoagulant Intensity: INR = 2.5-3.5 Performed By: #### P T, BMP #### [facility] [address] [place] [address] Property Claims Adjuster: Pankaj Cordoba MD PT Coag (PPP) [Time] 22.4 s High 11.7-14.9 [facility] Comment on above: Performed By: #### P T, BMP #### [facility] [address] [place], [place] [address] Property Claims Adjuster: Pankaj Cordoba MD Protime-INRon 06-05-2025 INR Coag (PPP) [Relative time] 1.9 {INR} [facility] Comment on above: Therapeutic Range: Moderate Anticoagulant Intensity: INR = 2.0-3.0 High Anticoagulant Intensity: INR = 2.5-3.5 Interpretation and review of laboratory results Abnormal [facility] PT Coag (PPP) [Time] 22.4 s High [facility] Arterial Bld Gas,POCon 06-04 HCO3 (Bld) [Moles/Vol] 24.6 mmol/L Normal 21.0-28.0 [facility] O2 Device Room Air Normal [facility] Oxygen saturation in Blood 97.2 % Normal 94.0-98.0 [facility] pCO2, Arterial 38.6 mm Hg Normal 35.0-48.0 [facility] pH, Arterial 7.412 Normal 7.350-7.450 [facility] pO2, Arterial 91.7 mm Hg Normal 83.0-108.0 [facility] Positive Base Excess (calc) 0.1 mmol/L Normal 0.0-3.0 [facility] Site Drawn Right Radial Artery Normal [facility] Arterial Blood Gas, POCon HCO3 (Bld) [Moles/Vol] 24.6 mmol/L 21.0 - 28.0 mmol/L [facility] O2 Delivery Device Room Air [facility] Oxygen saturation in Blood 97.2 % 94.0 - 98.0 % [facility] POC pCO2 38.6 [facility] POC pH 7.412 7.350 - 7.450 [facility] POC PO2 91.7 [facility] Positive Base Excess, Art 0.1 mmol/L 0.0 - 3.0 mmol/L [facility] Sample Site Right Radial Artery [facility] BUN, POCon 06-04-2025 Urea nitrogen [Mass/Vol] 11 mg/dL Normal 8-26 [facility] Basic Metab w/rfx MGon 06-04 Anion gap [Moles/Vol] 10 mmol/L Normal 9-16 [facility] Comment on above: Performed By: #### B MPX ####[address] [place] [address] Lab Director: Pankaj Cordoba MD Calcium [Mass/Vol] 8.6 mg/dL Normal 8.6-10.4 [facility] Comment on above: Performed By: #### B MPX ####[facility] [id number] [place] [address] Lab Director: Pankaj Cordoba MD Chloride [Moles/Vol] 87 mmol/L Low 98-107 [facility] Comment on above: Performed By: #### B MPX ####[facility] [id number] [place] [address] Lab Director: Pankaj Cordoba MD CO2 [Moles/Vol] 21 mmol/L Normal 20-31 [facility] Comment on above: Performed By: #### B MPX ####[facility] [id number] [place] [address] Lab Director: Pankaj Cordoba MD Creatinine [Mass/Vol] 0.7 mg/dL Normal 0.7-1.2 [facility] Comment on above: Performed By: #### B MPX ####[facility] [id number] [place] [address] Lab Director: Pankaj Cordoba MD GFR/1.73 sq M.predicted among non-blacks MDRD (S/P/Bld) [Vol rate/Area] mL/min/{1.73_m2} Normal >60 [facility] Comment on above: Result Comment: These [...] tubular secretion. Performed By: #### B MPX ####[facility] [address] [place] [address])[phone] Director: Pankaj Cordoba MD Glucose [Mass/Vol] 107 mg/dL High 74-99 [facility] Comment on above: Performed By: #### B MPX ####[facility] [address] [place] [address] Lab Director: Pankaj Cordoba MD Potassium [Moles/Vol] 4.8 mmol/L Normal 3.7-5.3 [facility] Comment on above: Result Comment: Spec imen hemolysis has exceeded the interference as defined by Sindy. Value may be falsely increased. Suggest recollection if clinically indicated. Performed By: #### B MPX ####[facility] [address] [place] [address] Lab Director: Pankaj Cordoba MD Sodium [Moles/Vol] 118 mmol/L Critically low 136-145 [facility] Comment on above: Performed By: #### B MPX ####[facility] [address] [place] [address] Lab Director: Pankaj Cordoba MD Urea nitrogen [Mass/Vol] 11 mg/dL Normal 8-23 [facility] Comment on above: Performed By: #### B MPX ####[facility] [address] [place] [address] Lab Director: Pankaj Cordoba MD Anion gap [Moles/Vol] 12 mmol/L Normal 9-16 [facility] Comment on above: Performed By: #### B MPX #### [facility] [address] [place] [address] Property Claims Adjuster: Pankaj Cordoba MD Calcium [Mass/Vol] 8.8 mg/dL Normal 8.6-10.4 [facility] Comment on above: Performed By: #### B MPX #### [address] [address] Property Claims Adjuster: Pankaj Cordoba MD Chloride [Moles/Vol] 88 mmol/L Low 98-107 [facility] Comment on above: Performed By: #### B MPX #### [address] [address] Property Claims Adjuster: Pankaj Cordoba MD CO2 [Moles/Vol] 19 mmol/L Low 20-31 [facility] Comment on above: Performed By: #### B MPX #### [address] [address] Property Claims Adjuster: Pankaj Cordoba MD Creatinine [Mass/Vol] 0.6 mg/dL Low 0.7-1.2 [facility] Comment on above: Performed By: #### B MPX #### [address] [address] Property Claims Adjuster: Pankaj Cordoba MD GFR/1.73 sq M.predicted among non-blacks MDRD (S/P/Bld) [Vol rate/Area] mL/min/{1.73_m2} Normal >60 [facility] Comment on above: Result Comment: These [...] secretion. Performed By: #### B MPX #### [facility] [address] [place] [address] Property Claims Adjuster: Pankaj Cordoba MD Glucose [Mass/Vol] 86 mg/dL Normal 74-99 [facility] Comment on above: Performed By: #### B MPX #### [facility] [employer] [address] [place] [address] Property Claims Adjuster: Pankaj Cordoba MD Potassium [Moles/Vol] 4.6 mmol/L Normal 3.7-5.3 [facility] Comment on above: Result Comment: Spec imen hemolysis has exceeded the interference as defined by Sindy. Value may be falsely increased. Suggest recollection if clinically indicated. Performed By: #### B MPX #### [facility] [employer] [address] [place] [address] Property Claims Adjuster: Pankaj Cordoba MD Sodium [Moles/Vol] 119 mmol/L Critically low 136-145 [facility] Comment on above: Performed By: #### B MPX #### [facility] [address] [place] [address] Property Claims Adjuster: Pankaj Cordoba MD Urea nitrogen [Mass/Vol] 11 mg/dL Normal 8-23 [facility] Comment on above: Performed By: #### B MPX #### [facility] [employer] [address] [place] [address] Property Claims Adjuster: Pankaj Cordoba MD Anion gap [Moles/Vol] 12 mmol/L Normal 9-16 [facility] Comment on above: Performed By: #### B MPX ####[facility] [address] [place] [address] Lab Director: Pankaj Cordoba MD Calcium [Mass/Vol] 8.7 mg/dL Normal 8.6-10.4 [facility] Comment on above: Performed By: #### B MPX ####[facility] [address] [place], [place] [phone] Director: Pankaj Cordoba MD Chloride [Moles/Vol] 88 mmol/L Low 98-107 [facility] Comment on above: Performed By: #### B MPX ####[facility] [address] [place], [place] [phone] Director: Pankaj Cordoba MD CO2 [Moles/Vol] 19 mmol/L Low 20-31 [facility] Comment on above: Performed By: #### B MPX ####[address] [phone] Director: Pankaj Cordoba MD Creatinine [Mass/Vol] 0.6 mg/dL Low 0.7-1.2 [facility] Comment on above: Performed By: #### B MPX ####[address] [phone] Director: Pankaj Cordoba MD GFR/1.73 sq M.predicted among non-blacks MDRD (S/P/Bld) [Vol rate/Area] mL/min/{1.73_m2} Normal >60 [facility] Comment on above: Result Comment: These [...] tubular secretion. Performed By: #### B MPX ####[address] [phone] Director: Pankaj Cordoba MD Glucose [Mass/Vol] 81 mg/dL Normal 74-99 [facility] Comment on above: Performed By: #### B MPX ####[facility] [address] [place], [place] [phone] Director: Pankaj Cordoba MD Potassium [Moles/Vol] 4.1 mmol/L Normal 3.7-5.3 [facility] Comment on above: Result Comment: Spec imen hemolysis has exceeded the interference as defined by Sindy. Value may be falsely increased. Suggest recollection if clinically indicated. Performed By: #### B MPX ####[facility] [address] [place] [address] [phone] Director: Pankaj Cordoba MD Sodium [Moles/Vol] 119 mmol/L Critically low 136-145 [facility] Comment on above: Performed By: #### B MPX ####[facility] [address] [place], [place] [phone] Director: Pankaj Cordoba MD Urea nitrogen [Mass/Vol] 11 mg/dL Normal 8-23 [facility] Comment on above: Performed By: #### B MPX ####[facility] [address] [place], [place] [phone] Director: Pankaj Cordoba MD Anion gap [Moles/Vol] 11 mmol/L Normal 9-16 [facility] Comment on above: Performed By: #### O SMO #### [facility] [employer] [facility] [place] [address] Property Claims Adjuster: Pankaj Cordoba MD Calcium [Mass/Vol] 9.0 mg/dL Normal 8.6-10.4 [facility] Comment on above: Performed By: #### O SMO #### [address] [place] [place] [address] Property Claims Adjuster: Pankaj Cordoba MD Chloride [Moles/Vol] 88 mmol/L Low 98-107 [facility] Comment on above: Performed By: #### O SMO #### [facility] [address] [place] [address] Property Claims Adjuster: Pankaj Cordoba MD CO2 [Moles/Vol] 21 mmol/L Normal 20-31 [facility] Comment on above: Performed By: #### O SMO #### [address] [address] Property Claims Adjuster: Pankaj Cordoba MD Creatinine [Mass/Vol] 0.6 mg/dL Low 0.7-1.2 [facility] Comment on above: Performed By: #### O SMO #### [address] [address] Property Claims Adjuster: Pankaj Cordoba MD GFR/1.73 sq M.predicted among non-blacks MDRD (S/P/Bld) [Vol rate/Area] mL/min/{1.73_m2} Normal >60 [facility] Comment on above: Result Comment: These [...] secretion. Performed By: #### O SMO #### [address] [address] Property Claims Adjuster: Pankaj Cordoba MD Glucose [Mass/Vol] 75 mg/dL Normal 74-99 [facility] Comment on above: Performed By: #### O SMO #### [address] [address] Property Claims Adjuster: Pankaj Cordoba MD Potassium [Moles/Vol] 4.3 mmol/L Normal 3.7-5.3 [facility] Comment on above: Performed By: #### O SMO #### [facility] [address] [place] [address] Property Claims Adjuster: Pankaj Cordoba MD Sodium [Moles/Vol] 120 mmol/L Low 136-145 [facility] Comment on above: Performed By: #### O SMO #### [facility] [address] [place] [address] Property Claims Adjuster: Pankaj Cordoba MD Urea nitrogen [Mass/Vol] 11 mg/dL Normal 8-23 [facility] Comment on above: Performed By: #### O SMO #### [facility] [employer] [address] [place] [address] Property Claims Adjuster: Pankaj Cordoba MD Anion gap [Moles/Vol] 14 mmol/L Normal 9-16 [facility] Comment on above: Performed By: #### B MPX ####[facility] [address] [place], [place] [phone] Director: Pankaj Cordoba MD Calcium [Mass/Vol] 8.5 mg/dL Low 8.6-10.4 [facility] Comment on above: Performed By: #### B MPX ####[facility] [address] [place], [place] [phone] Director: Pankaj Cordoba MD Chloride [Moles/Vol] 89 mmol/L Low 98-107 [facility] Comment on above: Performed By: #### B MPX ####[facility] [address]vlarzqm76[address] [place], [place] [phone] Director: Pankaj Cordoba MD CO2 [Moles/Vol] 17 mmol/L Low 20-31 [facility] Comment on above: Performed By: #### B MPX ####[facility] [address] [place], [place] [phone] Director: Pankaj Cordoba MD Creatinine [Mass/Vol] 0.6 mg/dL Low 0.7-1.2 [facility] Comment on above: Performed By: #### B MPX ####[address] [address] Lab Director: Pankaj Cordoba MD GFR/1.73 sq M.predicted among non-blacks MDRD (S/P/Bld) [Vol rate/Area] mL/min/{1.73_m2} Normal >60 [facility] Comment on above: Result Comment: These [...] tubular secretion. Performed By: #### B MPX ####[place], [place] [address])[phone] Director: Pankaj Cordoba MD Glucose [Mass/Vol] 76 mg/dL Normal 74-99 [facility] Comment on above: Performed By: #### B MPX ####[address] [address] lab Director: Pankaj Cordoba MD Potassium [Moles/Vol] 4.4 mmol/L Normal 3.7-5.3 [facility] Comment on above: Result Comment: Spec imen hemolysis has exceeded the interference as defined by Sindy. Value may be falsely increased. Suggest recollection if clinically indicated. Performed By: #### B MPX ####[facility] [address] [place] [address] Lab Director: Pankaj Cordoba MD Sodium [Moles/Vol] 120 mmol/L Low 136-145 [facility] Comment on above: Performed By: #### B MPX ####[place] [address] Lab Director: Pankaj Cordoba MD Urea nitrogen [Mass/Vol] 11 mg/dL Normal 8-23 [facility] Comment on above: Performed By: #### B MPX ####[facility] [address] [place], [place] [phone] Director: Pankaj Cordoba MD Anion gap [Moles/Vol] 15 mmol/L Normal 9-16 [facility] Comment on above: Performed By: #### B MPX ####[facility] [address] [place], [place] [phone] Director: Pankaj Cordoba MD Calcium [Mass/Vol] 8.6 mg/dL Normal 8.6-10.4 [facility] Comment on above: Performed By: #### B MPX ####[address] [address])[phone] Director: Pankaj Cordoba MD Chloride [Moles/Vol] 86 mmol/L Low 98-107 [facility] Comment on above: Performed By: #### B MPX ####[facility] [address] [place], [place] [phone] Director: Pankaj Cordoba MD CO2 [Moles/Vol] 16 mmol/L Low 20-31 [facility] Comment on above: Performed By: #### B MPX ####[facility] [address] [place], [place] [phone] Director: Pankaj Cordoba MD Creatinine [Mass/Vol] 0.7 mg/dL Normal 0.7-1.2 [facility] Comment on above: Performed By: #### B MPX ####[facility] [address] [place], [place] [address])[phone] Director: Pankaj Cordoba MD GFR/1.73 sq M.predicted among non-blacks MDRD (S/P/Bld) [Vol rate/Area] mL/min/{1.73_m2} Normal >60 [facility] Comment on above: Result Comment: These [...] tubular secretion. Performed By: #### B MPX ####[facility] [address] [place], [place] [phone] Director: Pankaj Cordoba MD Glucose [Mass/Vol] 90 mg/dL Normal 74-99 [facility] Comment on above: Performed By: #### B MPX ####[address] [phone] Director: Pankaj Cordoba MD Potassium [Moles/Vol] 4.1 mmol/L Normal 3.7-5.3 [facility] Comment on above: Result Comment: Spec imen hemolysis has exceeded the interference as defined by Sindy. Value may be falsely increased. Suggest recollection if clinically indicated. Performed By: #### B MPX ####[facility] [address] [place] [address] [phone] Director: Pankaj Cordoba MD Sodium [Moles/Vol] 117 mmol/L Critically low 136-145 [facility] Comment on above: Performed By: #### B MPX ####[facility] [address] [place], [place] [phone] Director: Pankaj Cordoba MD Urea nitrogen [Mass/Vol] 12 mg/dL Normal 8-23 [facility] Comment on above: Performed By: #### B MPX ####[facility] [address] [place], [place] [phone] Director: Pankaj Cordoba MD Basic Metabolic Panel w/ Ref maura to MGon 06-04-2025 Anion gap [Moles/Vol] 10 mmol/L 9 - 16 mmol/L [facility] Calcium [Mass/Vol] 8.6 mg/dL 8.6 - 10. 4 mg/dL [facility] Chloride [Moles/Vol] 87 mmol/L Low 98 - 10 7 mmol/L [facility] CO2 [Moles/Vol] 21 mmol/L 20 - 31 mmol/L [facility] Creatinine [Mass/Vol] 0.7 mg/dL 0.7 - 1.2 mg/dL [facility] Est, Jesu Michele Rate - PINF [facility] Comment on above: These results are [...] 107 mg/dL High 74 - 99 mg/dL [facility] Interpretation and review of laboratory results Abnormal [facility] Potassium [Moles/Vol] 4.8 mmol/L 3.7 - 5.3 mmol/L [facility] Comment on above: Specimen hemolysis h as exceeded the interference as defined by Sindy. Value may be falsely increased. Suggest recollection if clinically indicated. Sodium [Moles/Vol] 118 mmol/L Critically low 136 - 1 45 mmol/L [facility] Urea nitrogen [Mass/Vol] 11 mg/dL 8 - 23 mg/dL [facility] Anion gap [Moles/Vol] 12 mmol/L 9 - 16 mmol/L [facility] Calcium [Mass/Vol] 8.8 mg/dL 8.6 - 10. 4 mg/dL [facility] Chloride [Moles/Vol] 88 mmol/L Low 98 - 10 7 mmol/L [facility] CO2 [Moles/Vol] 19 mmol/L Low 20 - 31 mmol/L [facility] Creatinine [Mass/Vol] 0.6 mg/dL Low 0.7 - 1.2 mg/dL [facility] Est, Glom Robertot Rate - PINF [facility] Mieple [facility] [employer] Comment on above: These results are not [...] [Mass/Vol] 86 mg/dL 74 - 99 mg/dL [facility] Interpretation and review of laboratory results Abnormal [facility] Potassium [Moles/Vol] 4.6 mmol/L 3.7 - 5.3 mmol/L [facility] Comment on above: Specimen hemolysis h as exceeded the interference as defined by Sindy. Value may be falsely increased. Suggest recollection if clinically indicated. Sodium [Moles/Vol] 119 mmol/L Critically low 136 - 1 45 mmol/L [facility] [employer] Urea nitrogen [Mass/Vol] 11 mg/dL 8 - 23 mg/dL [facility] Anion gap [Moles/Vol] 12 mmol/L 9 - 16 mmol/L [facility] Calcium [Mass/Vol] 8.7 mg/dL 8.6 - 10. 4 mg/dL [facility] [employer] Chloride [Moles/Vol] 88 mmol/L Low 98 - 10 7 mmol/L [facility] [employer] CO2 [Moles/Vol] 19 mmol/L Low 20 - 31 mmol/L [facility] Creatinine [Mass/Vol] 0.6 mg/dL Low 0.7 - 1.2 mg/dL [facility] Est, Glom Robertot Rate - PINF [facility] Mieple [facility] Comment on above: These results are not [...] [Mass/Vol] 81 mg/dL 74 - 99 mg/dL [facility] Interpretation and review of laboratory results Abnormal [facility] Potassium [Moles/Vol] 4.1 mmol/L 3.7 - 5.3 mmol/L [facility] Comment on above: Specimen hemolysis h as exceeded the interference as defined by Sindy. Value may be falsely increased. Suggest recollection if clinically indicated. Sodium [Moles/Vol] 119 mmol/L Critically low 136 - 1 45 mmol/L [facility] Urea nitrogen [Mass/Vol] 11 mg/dL 8 - 23 mg/dL [facility] Anion gap [Moles/Vol] 11 mmol/L 9 - 16 mmol/L [facility] Calcium [Mass/Vol] 9 mg/dL 8.6 - 10. 4 mg/dL [facility] Chloride [Moles/Vol] 88 mmol/L Low 98 - 10 7 mmol/L [facility] CO2 [Moles/Vol] 21 mmol/L 20 - 31 mmol/L [facility] Creatinine [Mass/Vol] 0.6 mg/dL Low 0.7 - 1.2 mg/dL [facility] Est, Glom Robertot Rate - PINF [facility] Comment on above: These results are [...] [Mass/Vol] 75 mg/dL 74 - 99 mg/dL [facility] Interpretation and review of laboratory results Abnormal [facility] Potassium [Moles/Vol] 4.3 mmol/L 3.7 - 5.3 mmol/L [facility] Sodium [Moles/Vol] 120 mmol/L Low 136 - 145 mmol/L [facility] Urea nitrogen [Mass/Vol] 11 mg/dL 8 - 23 mg/dL [facility] Anion gap [Moles/Vol] 14 mmol/L 9 - 16 mmol/L [facility] Calcium [Mass/Vol] 8.5 mg/dL Low 8.6 - 10. 4 mg/dL [facility] Chloride [Moles/Vol] 89 mmol/L Low 98 - 10 7 mmol/L [facility] CO2 [Moles/Vol] 17 mmol/L Low 20 - 31 mmol/L [facility] Creatinine [Mass/Vol] 0.6 mg/dL Low 0.7 - 1.2 mg/dL [facility] Jesu Appiah Rate - PINF [facility] Comment on above: These results are [...] [Mass/Vol] 76 mg/dL 74 - 99 mg/dL [facility] Interpretation and review of laboratory results Abnormal [facility] Potassium [Moles/Vol] 4.4 mmol/L 3.7 - 5.3 mmol/L [facility] Comment on above: Specimen hemolysis h as exceeded the interference as defined by Sindy. Value may be falsely increased. Suggest recollection if clinically indicated. Sodium [Moles/Vol] 120 mmol/L Low 136 - 145 mmol/L [facility] Urea nitrogen [Mass/Vol] 11 mg/dL 8 - 23 mg/dL [facility] Anion gap [Moles/Vol] 15 mmol/L 9 - 16 mmol/L [facility] Calcium [Mass/Vol] 8.6 mg/dL 8.6 - 10. 4 mg/dL [facility] Chloride [Moles/Vol] 86 mmol/L Low 98 - 10 7 mmol/L [facility] CO2 [Moles/Vol] 16 mmol/L Low 20 - 31 mmol/L [facility] Creatinine [Mass/Vol] 0.7 mg/dL 0.7 - 1.2 mg/dL [facility] Est, Glozoe Filt Rate - PINF [facility] Comment on above: These results are [...] [Mass/Vol] 90 mg/dL 74 - 99 mg/dL [facility] Interpretation and review of laboratory results Abnormal [facility] Potassium [Moles/Vol] 4.1 mmol/L 3.7 - 5.3 mmol/L [facility] Comment on above: Specimen hemolysis h as exceeded the interference as defined by Sindy. Value may be falsely increased. Suggest recollection if clinically indicated. Sodium [Moles/Vol] 117 mmol/L Critically low 136 - 1 45 mmol/L [facility] Urea nitrogen [Mass/Vol] 12 mg/dL 8 - 23 mg/dL [facility] CALCIUM, IONIC (POC)on 06-04 Calcium.ionized (Bld) [Moles/Vol] 1.18 mmol/L 1.15 - 1.33 mmol/L [facility] CT HEAD WO CONTRASTon 2024 CT HEAD [...] Dixon Crockett MD 06/04/25 Final result Normal [facility] CT Head WO contraston 2024 1. No acute intracranial abnormality. 2. Acute right maxillary sinusitis. [facility] EXAMINATION: CT OF THE HEAD [...] cells. SOFT TISSUES/SKULL: The calvarium is intact. [facility] Dixon Crockett MD - 06/04/2025 [...] intracranial abnormality. 2. Acute right maxillary sinusitis. [facility] Radiology Study observation (narrative) [facility] CT Head WO contrastOrdered B y: Dixon Crockett on 06-04-2025 [facility] Work Phone: Calcium, Ionic (POC)on 06-04 Calcium [Moles/Vol] 1.18 mmol/L Normal 1.15-1.33 [facility] Cortisolon 06-04-2025 Cortisol 11.7 ug/dL Normal 2.5-19.5 [facility] Comment on above: Result Comment: Cortisol Reference Range: AM 6.0-18.4 PM 2.7-10.5 Performed By: #### O SMO #### [facility] [employer] [facility] [place] [address] Property Claims Adjuster: Pankaj Cordoba MD Cortisol Totalon 06-04-2025 Cortisol [Mass/Vol] 11.7 ug/dL 2.5 - 19 .5 ug/dL [facility] Comment on above: Cortisol Reference Range: AM 6.0-18.4 PM 2.7-10.5 Creatinine W/GFR Point of Ca reon 06-04-2025 Creatinine [Mass/Vol] 0.7 mg/dL 0.51 - 1.19 mg/dL [facility] eGFR, POC - PINF [facility] Comment on above: These results are not [...] 05-15 Creatinine [Mass/Vol] 0.7 mg/dL Normal 0.51-1.19 [facility] GFR/1.73 sq M.predicted among non-blacks MDRD (S/P/Bld) [Vol rate/Area] mL/min/{1.73_m2} Normal >60 [facility] Comment on above: Result Comment: These [...] [Moles/Vol] 12 mmol/L 7 - 16 mmol/L [facility] Chloride [Moles/Vol] 89 mmol/L Low 98 - 10 7 mmol/L [facility] CO2 Calc (Bld) [Moles/Vol] 23 mmol/L 22 - 30 mmol/L [facility] Potassium [Moles/Vol] 3.9 mmol/L 3.5 - 4.5 mmol/L [facility] Sodium [Moles/Vol] 123 mmol/L Low 138 - 146 mmol/L [facility] Electrolyte Panelon 06-04-20 25 Anion gap [Moles/Vol] 9 mmol/L 9 - 16 mmol/L [facility] [employer] Chloride [Moles/Vol] 91 mmol/L Low 98 - 10 7 mmol/L [facility] [employer] CO2 [Moles/Vol] 21 mmol/L 20 - 31 mmol/L [facility] [employer] Interpretation and review of laboratory results Abnormal [facility] Potassium [Moles/Vol] 4.3 mmol/L 3.7 - 5.3 mmol/L [facility] Sodium [Moles/Vol] 121 mmol/L Low 136 - 145 mmol/L [facility] Anion gap [Moles/Vol] 12 mmol/L 9 - 16 mmol/L [facility] Chloride [Moles/Vol] 90 mmol/L Low 98 - 10 7 mmol/L [facility] [employer] CO2 [Moles/Vol] 20 mmol/L 20 - 31 mmol/L [facility] Interpretation and review of laboratory results Abnormal [facility] Potassium [Moles/Vol] 4.3 mmol/L 3.7 - 5.3 mmol/L [facility] Sodium [Moles/Vol] 122 mmol/L Low 136 - 145 mmol/L [facility] Anion gap [Moles/Vol] 11 mmol/L 9 - 16 mmol/L [facility] Chloride [Moles/Vol] 88 mmol/L Low 98 - 10 7 mmol/L [facility] CO2 [Moles/Vol] 19 mmol/L Low 20 - 31 mmol/L [facility] Interpretation and review of laboratory results Abnormal [facility] Potassium [Moles/Vol] 4.5 mmol/L 3.7 - 5.3 mmol/L [facility] Sodium [Moles/Vol] 118 mmol/L Critically low 136 - 1 45 mmol/L [facility] Electrolyteson 06-04-2025 Anion gap [Moles/Vol] 9 mmol/L Normal 9-16 [facility] Comment on above: Performed By: #### O SMO #### [facility] [address] [place] [address] Property Claims Adjuster: Pankaj Cordoba MD Chloride [Moles/Vol] 91 mmol/L Low 98-107 [facility] Comment on above: Performed By: #### O SMO #### [facility] [address] [place], [place] [phone] Property Claims Adjuster: Pankaj Cordoba MD CO2 [Moles/Vol] 21 mmol/L Normal 20-31 [facility] Comment on above: Performed By: #### O SMO #### [facility] [address] [place] [address] [phone] Property Claims Adjuster: Pankaj Cordoba MD Potassium [Moles/Vol] 4.3 mmol/L Normal 3.7-5.3 [facility] Comment on above: Performed By: #### O SMO #### [facility] [place] [address] Property Claims Adjuster: Pankaj Cordoba MD Sodium [Moles/Vol] 121 mmol/L Low 136-145 [facility] Comment on above: Performed By: #### O SMO #### [facility] [address] [place] [address] Property Claims Adjuster: Pankaj Cordoba MD Anion gap [Moles/Vol] 12 mmol/L Normal 9-16 [facility] Comment on above: Performed By: #### L YTE ####[facility] [address] [place], [place] [phone] Director: Pankaj Cordoba MD Chloride [Moles/Vol] 90 mmol/L Low 98-107 [facility] Comment on above: Performed By: #### L YTE ####[address] [phone] Director: Pankaj Cordoba MD CO2 [Moles/Vol] 20 mmol/L Normal 20-31 [facility] Comment on above: Performed By: #### L YTE ####[facility] [place], [place] [phone] Director: Pankaj Cordoba MD Potassium [Moles/Vol] 4.3 mmol/L Normal 3.7-5.3 [facility] Comment on above: Performed By: #### L YTE ####[facility] [address] [place], [place] [phone] Director: Pankaj Cordoba MD Sodium [Moles/Vol] 122 mmol/L Low 136-145 [facility] Comment on above: Performed By: #### L YTE ####[facility] [address] [place], [place] [phone] Director: Pankaj Cordoba MD Anion gap [Moles/Vol] 11 mmol/L Normal 9-16 [facility] Comment on above: Performed By: #### O SMO #### [facility] [address] [place] [address] Property Claims Adjuster: Pankaj Cordoba MD Chloride [Moles/Vol] 88 mmol/L Low 98-107 [facility] Comment on above: Performed By: #### O SMO #### [address] [address] Property Claims Adjuster: Pankaj Cordoba MD CO2 [Moles/Vol] 19 mmol/L Low 20-31 [facility] Comment on above: Performed By: #### O SMO #### [address] [address] Property Claims Adjuster: Pankaj Cordoba MD Potassium [Moles/Vol] 4.5 mmol/L Normal 3.7-5.3 [facility] Comment on above: Performed By: #### O SMO #### [address] [address] Property Claims Adjuster: Pankaj Cordoba MD Sodium [Moles/Vol] 118 mmol/L Critically low 136-145 [facility] Comment on above: Performed By: #### O SMO #### [address] [address] Property Claims Adjuster: Pankaj Cordoba MD Anion gap [Moles/Vol] 12 mmol/L Normal 7-16 [facility] Chloride [Moles/Vol] 89 mmol/L Low 98-107 [facility] CO2 [Moles/Vol] 23 mmol/L Normal 22-30 [facility] Potassium [Moles/Vol] 3.9 mmol/L Normal 3.5-4.5 [facility] Sodium [Moles/Vol] 123 mmol/L Low 138-146 [facility] Glucose (POC)on 06-04-2025 Glucose [Mass/Vol] 81 mg/dL Normal 74-100 [facility] Glucose,Whole Bloodon 2024 Glucose [Mass/Vol] 119 mg/dL High 75-110 [facility] Glucose [Mass/Vol] 96 mg/dL Normal 75-110 [facility] Glucose [Mass/Vol] 117 mg/dL High 75-110 [facility] Glucose [Mass/Vol] 93 mg/dL Normal 75-110 [facility] Glucose [Mass/Vol] 76 mg/dL Normal 75-110 [facility] Hemoglobin and hematocrit, b loodon 06-04-2025 Hematocrit (Bld) [Volume fraction] 36 % Low 41 - 53 % [facility] Hemoglobin (Bld) [Mass/Vol] 12.3 g/dL Low 13.5 - 17.5 g/dL [facility] Hgb/Hct, POCon 06-04-2025 Hematocrit (Bld) [Volume fraction] 36 % Low 41-53 [facility] Hemoglobin (Bld) [Mass/Vol] 12.3 g/dL Low 13.5-17.5 [facility] Lactic Acid (POC)on 06-04-20 25 Lactate [Moles/Vol] 0.8 mmol/L Normal 0.56-1.39 [facility] Lactic Acid, POCon 5 POC Lactic Acid 0.8 mmol/L 0.56 - 1.39 mmol/L [facility] No Panel Informationon 06-04 [facility] Interpretation and review of laboratory results Abnormal [facility] Osmolality, Urineon 06-04-20 25 Osmolality (U) [Osmolality] 590 mosm/kg [facility] Osmolality - Urine 590 mOsm/kg Normal 80-1300 [facility] Comment on above: Performed By: #### U RNA, UOSMO ####[facility] [address] [place] [address] [facility] Director: Pankaj Cordoba MD POC Glucose Fingerstickon Glucose [Mass/Vol] 119 mg/dL High 75 - 110 mg/dL [facility] Interpretation and review of laboratory results Abnormal [facility] Glucose [Mass/Vol] 96 mg/dL 75 - 110 mg/dL [facility] Glucose [Mass/Vol] 117 mg/dL High 75 - 110 mg/dL [facility] Interpretation and review of laboratory results Abnormal [facility] Glucose [Mass/Vol] 93 mg/dL 75 - 110 mg/dL [facility] Glucose [Mass/Vol] 76 mg/dL 75 - 110 mg/dL [facility] POCT Glucoseon 06-04-2025 Glucose [Mass/Vol] 81 mg/dL 74 - 100 mg/dL [facility] POCT urea (BUN)on 06-04-2025 Urea nitrogen [Mass/Vol] 11 mg/dL 8 - 26 mg/dL [facility] PTon 06-04-2025 INR Coag (PPP) [Relative time] 1.8 {INR} Normal [facility] Comment on above: Result Comment: Therapeutic Range: Moderate Anticoagulant Intensity: INR = 2.0-3.0 High Anticoagulant Intensity: INR = 2.5-3.5 Performed By: #### P T #### [facility] [address] [place], [place] [phone] Property Claims Adjuster: Pankaj Cordoba MD PT Coag (PPP) [Time] 21.4 s High 11.7-14.9 [facility] Comment on above: Performed By: #### P T #### [facility] [address] [place], [place] [phone] Property Claims Adjuster: Pankaj Cordoba MD Protime-INRon 06-04-2025 INR Coag (PPP) [Relative time] 1.8 {INR} [facility] Comment on above: Therapeutic Range: Moderate Anticoagulant Intensity: INR = 2.0-3.0 High Anticoagulant Intensity: INR = 2.5-3.5 Interpretation and review of laboratory results Abnormal [facility] PT Coag (PPP) [Time] 21.4 s High [facility] Sodium, Random Uron 06-04-20 25 Sodium (U) [Moles/Vol] 159 mmol/L Normal [facility] Comment on above: No normal range esta blished. Result Comment: No n ormal range established. Performed By: #### U RNA, UOSMO ####[facility] [address] [place] [address] Lab Director: Pankaj Cordoba MD Sodium, urine, randomon 05-15 [facility] T4, Freeon 06-04-2025 Free T4 [Mass/Vol] 1.5 ng/dL 0.92 - 1. 68 ng/dL [facility] TSHon 06-04-2025 TSH Qn 2.95 m[IU]/L [facility] Thyroid Stim. Horm.on 2024 Thyroid Stim. Horm. 2.95 uIU/mL Normal 0.27-4.20 [facility] Comment on above: Performed By: #### O SMO #### [address] [address] Property Claims Adjuster: Pankaj Cordoba MD Thyroxine, Freeon 06-04-2025 Thyroxine, Free 1.5 ng/dL Normal 0.92-1.68 [facility] Comment on above: Performed By: #### O SMO #### [place] [address] Property Claims Adjuster: Pankaj Cordoba MD Basic Metab w/rfx MGon 06-03 Anion gap [Moles/Vol] 11 mmol/L Normal 9-16 [facility] Comment on above: Performed By: #### O SMO #### [address] [address] Property Claims Adjuster: Pankaj Cordoba MD Calcium [Mass/Vol] 9.0 mg/dL Normal 8.6-10.4 [facility] Comment on above: Performed By: #### O SMO #### [facility] [address] [place] [address] Property Claims Adjuster: Pankaj Cordoba MD Chloride [Moles/Vol] 90 mmol/L Low 98-107 [facility] Comment on above: Performed By: #### O SMO #### [facility] [address] [place] [phone] Property Claims Adjuster: Pankaj Cordoba MD CO2 [Moles/Vol] 20 mmol/L Normal 20-31 [facility] Comment on above: Performed By: #### O SMO #### [address] [address] Property Claims Adjuster: Pankaj Cordoba MD Creatinine [Mass/Vol] 0.7 mg/dL Normal 0.7-1.2 [facility] Comment on above: Performed By: #### O SMO #### [address] [address] Property Claims Adjuster: Pankaj Cordoba MD GFR/1.73 sq M.predicted among non-blacks MDRD (S/P/Bld) [Vol rate/Area] mL/min/{1.73_m2} Normal >60 [facility] Comment on above: Result Comment: These [...] secretion. Performed By: #### O SMO #### [address] [address] Property Claims Adjuster: Pankaj Cordoba MD Glucose [Mass/Vol] 107 mg/dL High 74-99 [facility] Comment on above: Performed By: #### O SMO #### [address] [phone] Property Claims Adjuster: Pankaj Cordoba MD Potassium [Moles/Vol] 4.8 mmol/L Normal 3.7-5.3 [facility] Comment on above: Result Comment: Spec imen hemolysis has exceeded the interference as defined by Sindy. Value may be falsely increased. Suggest recollection if clinically indicated. Performed By: #### O SMO #### [facility] [address] [place] [address] Property Claims Adjuster: Pankaj Cordoba MD Sodium [Moles/Vol] 121 mmol/L Low 136-145 [facility] Comment on above: Performed By: #### O SMO #### [facility] [address] [place] [address] Property Claims Adjuster: Pankaj Codroba MD Urea nitrogen [Mass/Vol] 13 mg/dL Normal 8-23 [facility] Comment on above: Performed By: #### O SMO #### [facility] [address] [place] [address] Property Claims Adjuster: Pankaj Cordoba MD Basic Metabolic Panel w/ Ref maura to MGon 06-03-2025 Anion gap [Moles/Vol] 11 mmol/L 9 - 16 mmol/L [facility] Calcium [Mass/Vol] 9 mg/dL 8.6 - 10. 4 mg/dL [facility] Chloride [Moles/Vol] 90 mmol/L Low 98 - 10 7 mmol/L [facility] CO2 [Moles/Vol] 20 mmol/L 20 - 31 mmol/L [facility] Creatinine [Mass/Vol] 0.7 mg/dL 0.7 - 1.2 mg/dL [facility] [place], Glom Robertot Rate - PINF [facility] Comment on above: These results are [...] 107 mg/dL High 74 - 99 mg/dL [facility] Interpretation and review of laboratory results Abnormal [facility] Potassium [Moles/Vol] 4.8 mmol/L 3.7 - 5.3 mmol/L [facility] Comment on above: Specimen hemolysis h as exceeded the interference as defined by Sindy. Value may be falsely increased. Suggest recollection if clinically indicated. Sodium [Moles/Vol] 121 mmol/L Low 136 - 145 mmol/L [facility] Urea nitrogen [Mass/Vol] 13 mg/dL 8 - 23 mg/dL [facility] CBC with Auto Differentialon 06-03-2025 Basophils (Bld) [#/Vol] 0.04 10*3/uL [facility] Basophils/100 WBC (Bld) 1 % 0 - 2 % [facility] Eosinophils (Bld) [#/Vol] 0.08 10*3/uL [facility] Eosinophils/100 WBC (Bld) 1 % 1 - 4 % [facility] Erythrocyte distribution width (RBC) [Ratio] 13 % 11.8 - 14.4 % [facility] Hematocrit (Bld) [Volume fraction] 35.2 % Low 40.7 - 50.3 % [facility] Hemoglobin (Bld) [Mass/Vol] 12.3 g/dL Low 13.0 - 17.0 g/dL [facility] Immature granulocytes (Bld) [#/Vol] [facility] Immature granulocytes/100 WBC (Bld) 0 % 0 [facility] Interpretation and review of laboratory results Abnormal [facility] Lymphocytes/100 WBC (Bld) 23 % Low 24 - 43 % [facility] Lymphocytes/100 WBC (Bld) 1.68 % [facility] MCH (RBC) [Entitic mass] 30.9 pg 25.2 - 33.5 pg [facility] MCHC (RBC) [Mass/Vol] 34.9 g/dL High 28.4 - 34.8 g/dL [facility] MCV (RBC) [Entitic vol] 88.4 fL 82.6 - 102.[address] [facility] Monocytes/100 WBC (Bld) 11 % 3 - 12 % [facility] Monocytes/100 WBC (Bld) 0.8 % [facility] Neutrophils/100 WBC (Bld) 64 % 36 - 65 % [facility] Nucleated RBC/100 WBC (Bld) [Ratio] 0 % 0.0 per [address] [facility] [place] Platelet, Fluorescence [address] [facility] Platelets (Bld) [#/Vol] See Reflexed IPF Result [facility] [place] Platelets reticulated/100 platelets Auto (Bld) 5.3 % 1.1 - 10.3 % [facility] RBC (Bld) [#/Vol] 3.98 10*6/uL Low 4.21 - 5.7 7 m/uL [facility] [place] Segmented neutrophils/100 WBC (Bld) 4.63 % [facility] WBC other (Bld) [#/Vol] 7.2 [facility] CBC with Diffon 06-03-2025 Abs. Basophil 0.04 k/uL Normal 0.00-0.20 [facility] Comment on above: Performed By: #### O SMO #### [facility] [address] [place] [address] Property Claims Adjuster: Pankaj Cordoba MD Abs.Imm.Granulocyte <0.03 Normal 0.00-0.30 [facility] Comment on above: Performed By: #### O SMO #### [facility] [address] [place] [phone] Property Claims Adjuster: Pankaj Cordoba MD Abs.Neutrophil (Seg) 4.63 k/uL Normal 1.50-8.10 [facility] Comment on above: Performed By: #### O SMO #### [facility] [address] [place] [address] [phone] Property Claims Adjuster: Pankaj Cordoba MD Basophils/100 WBC (Bld) 1 % Normal 0-2 [facility] Comment on above: Performed By: #### O SMO #### [address] [address] Property Claims Adjuster: Pankaj Cordoba MD Eosinophils (Bld) [#/Vol] 0.08 10*3/uL Normal 0.00-0.44 [facility] Comment on above: Performed By: #### O SMO #### [address] [address] Property Claims Adjuster: Pankaj Cordoba MD Eosinophils/100 WBC (Bld) 1 % Normal 1-4 [facility] Comment on above: Performed By: #### O SMO #### [address] [address] Property Claims Adjuster: Pankaj Cordoba MD Erythrocyte distribution width (RBC) [Ratio] 13.0 % Normal 11.8-14.4 [facility] Comment on above: Performed By: #### O SMO #### [address] [address] Property Claims Adjuster: Pankaj Cordoba MD Hematocrit (Bld) [Volume fraction] 35.2 % Low 40.7-50.3 [facility] Comment on above: Performed By: #### O SMO #### [address] [address] Property Claims Adjuster: Pankaj Cordoba MD Hemoglobin (Bld) [Mass/Vol] 12.3 g/dL Low 13.0-17.0 [facility] Comment on above: Performed By: #### O SMO #### [address] [address] Property Claims Adjuster: Pankaj Cordoba MD Immature granulocytes/100 WBC (Bld) 0 % Normal 0 [facility] Comment on above: Performed By: #### O SMO #### [address] [address] Property Claims Adjuster: Pankaj Cordoba MD Lymphocytes (Bld) [#/Vol] 1.68 10*3/uL Normal 1.10-3.70 [facility] Comment on above: Performed By: #### O SMO #### [address] [address] Property Claims Adjuster: Pankaj Cordoba MD Lymphocytes/100 WBC (Bld) 23 % Low 24-43 [facility] Comment on above: Performed By: #### O SMO #### [address] [address] Property Claims Adjuster: Pankaj Cordoba MD MCH (RBC) [Entitic mass] 30.9 pg Normal 25.2-33.5 [facility] Comment on above: Performed By: #### O SMO #### [address] [address] Property Claims Adjuster: Pankaj Cordoba MD MCHC (RBC) [Mass/Vol] 34.9 g/dL High 28.4-34.8 [facility] Comment on above: Performed By: #### O SMO #### [address] [address] Property Claims Adjuster: Pankaj Cordoba MD MCV (RBC) [Entitic vol] 88.4 fL Normal 82.6-102.9 [facility] Comment on above: Performed By: #### O SMO #### [address] [address] Property Claims Adjuster: Pankaj Cordoba MD Monocytes (Bld) [#/Vol] 0.80 10*3/uL Normal 0.10-1.20 [facility] Comment on above: Performed By: #### O SMO #### [address] [address] Property Claims Adjuster: Pankaj Cordoba MD Monocytes/100 WBC (Bld) 11 % Normal 3-12 [facility] Comment on above: Performed By: #### O SMO #### [address] [address] Property Claims Adjuster: Pankaj Cordoba MD Neutrophil (Seg) 64 % Normal 36-65 [facility] Comment on above: Performed By: #### O SMO #### [address] [address] Property Claims Adjuster: Pankaj Cordoba MD NRBC Automated 0.0 per 100 WBC Normal 0.0 [facility] Comment on above: Performed By: #### O SMO #### [address] [address] Property Claims Adjuster: Pankaj Cordoba MD Platelet Count See Reflexed IPF Result Normal 138-453 [facility] Comment on above: Performed By: #### O SMO #### [address] [address] Property Claims Adjuster: Pankaj Cordoba MD Platelet, Fluoresc. 132 k/uL Low 138-453 [facility] Comment on above: Performed By: #### O SMO #### [address] [address] Property Claims Adjuster: Pankaj Cordoba MD PLT, Immature Fract. 5.3 % Normal 1.1-10.3 [facility] Comment on above: Performed By: #### O SMO #### [address] [address] Property Claims Adjuster: Pankaj Cordoba MD RBC (Bld) [#/Vol] 3.98 10*6/uL Low 4.21-5.77 [facility] Comment on above: Performed By: #### O SMO #### [address] [address] Property Claims Adjuster: Pankaj Cordoba MD WBC (Bld) [#/Vol] 7.2 10*3/uL Normal 3.5-11.3 [facility] Comment on above: Performed By: #### O SMO #### [facility] [address] [place] [address] Property Claims Adjuster: Pankaj Cordoba MD Electrolyte Panelon 06-03-20 Anion gap [Moles/Vol] 14 mmol/L 9 - 16 mmol/L [facility] Chloride [Moles/Vol] 86 mmol/L Low 98 - 10 7 mmol/L [facility] CO2 [Moles/Vol] 17 mmol/L Low 20 - 31 mmol/L [facility] Interpretation and review of laboratory results Abnormal [facility] Potassium [Moles/Vol] 4.4 mmol/L 3.7 - 5.3 mmol/L [facility] Comment on above: Specimen hemolysis h as exceeded the interference as defined by Sindy. Value may be falsely increased. Suggest recollection if clinically indicated. Sodium [Moles/Vol] 117 mmol/L Critically low 136 - 1 45 mmol/L [facility] Anion gap [Moles/Vol] 12 mmol/L 9 - 16 mmol/L [facility] Chloride [Moles/Vol] 89 mmol/L Low 98 - 10 7 mmol/L [facility] CO2 [Moles/Vol] 19 mmol/L Low 20 - 31 mmol/L [facility] Interpretation and review of laboratory results Abnormal [facility] Potassium [Moles/Vol] 4.5 mmol/L 3.7 - 5.3 mmol/L [facility] Comment on above: Specimen hemolysis h as exceeded the interference as defined by Sindy. Value may be falsely increased. Suggest recollection if clinically indicated. Sodium [Moles/Vol] 120 mmol/L Low 136 - 145 mmol/L [facility] Electrolyteson 06-03-2025 Anion gap [Moles/Vol] 14 mmol/L Normal 9-16 [facility] Comment on above: Performed By: #### L YTE ####[facility] [place], [place] [phone] Director: Pankaj Cordoba MD Chloride [Moles/Vol] 86 mmol/L Low 98-107 [facility] Comment on above: Performed By: #### L YTE ####[facility] [address] [place], [place] [phone] Director: Pankaj Cordoba MD CO2 [Moles/Vol] 17 mmol/L Low 20-31 [facility] Comment on above: Performed By: #### L YTE ####[facility] [address] [place], [place] [phone] Director: Pankaj Cordoba MD Potassium [Moles/Vol] 4.4 mmol/L Normal 3.7-5.3 [facility] Comment on above: Result Comment: Spec imen hemolysis has exceeded the interference as defined by Sindy. Value may be falsely increased. Suggest recollection if clinically indicated. Performed By: #### L YTE ####[facility] [address] [place], [place] [phone] Director: Pankaj Cordoba MD Sodium [Moles/Vol] 117 mmol/L Critically low 136-145 [facility] Comment on above: Performed By: #### L YTE ####[facility] [address] [place], [place] [phone] Director: Pankaj Cordoba MD Anion gap [Moles/Vol] 12 mmol/L Normal 9-16 [facility] Comment on above: Performed By: #### L YTE ####[facility] [address] [place], [place] [phone] Director: Pankaj Cordoba MD Chloride [Moles/Vol] 89 mmol/L Low 98-107 [facility] Comment on above: Performed By: #### L YTE ####[facility] [address] [place], [place] [phone] Director: Pankaj Cordoba MD CO2 [Moles/Vol] 19 mmol/L Low 20-31 [facility] Comment on above: Performed By: #### L YTE ####[facility] [address] [place], [place] [phone] Lab Director: Pankaj Cordoba MD Potassium [Moles/Vol] 4.5 mmol/L Normal 3.7-5.3 [facility] Comment on above: Result Comment: Spec imen hemolysis has exceeded the interference as defined by Sindy. Value may be falsely increased. Suggest recollection if clinically indicated. Performed By: #### L YTE ####[employer] [address] [place] [address] Lab Director: Pankaj Cordoba MD Sodium [Moles/Vol] 120 mmol/L Low 136-145 [facility] Comment on above: Performed By: #### L YTE ####[employer] [address] [place] [address] Lab Director: Pankaj Cordoba MD Glucose,Whole Bloodon 2024 Glucose [Mass/Vol] 92 mg/dL Normal 75-110 [facility] Glucose [Mass/Vol] 98 mg/dL Normal 75-110 [facility] Glucose [Mass/Vol] 124 mg/dL High 75-110 [facility] Glucose [Mass/Vol] 117 mg/dL High 75-110 [facility] Osmolalityon 06-03-2025 Interpretation and review of laboratory results Abnormal [facility] [place] Osmolality [Osmolality] 251 mosm/kg Low [facility] Osmolality [Osmolality] 251 mosm/kg Low 275-295 [facility] Comment on above: Performed By: #### O SMO #### [facility] [address] [phone] Property Claims Adjuster: Pankaj Cordoba MD POC Glucose Fingerstickon Glucose [Mass/Vol] 92 mg/dL 75 - 110 mg/dL [facility] Glucose [Mass/Vol] 98 mg/dL 75 - 110 mg/dL [facility] Glucose [Mass/Vol] 124 mg/dL High 75 - 110 mg/dL [facility] Interpretation and review of laboratory results Abnormal [facility] Glucose [Mass/Vol] 117 mg/dL High 75 - 110 mg/dL [facility] Interpretation and review of laboratory results Abnormal [facility] PREVIOUS SPECIMENon 06-03-20 25 [facility] PTon 06-03-2025 INR Coag (PPP) [Relative time] 1.7 {INR} Normal [facility] Comment on above: Result Comment: Therapeutic Range: Moderate Anticoagulant Intensity: INR = 2.0-3.0 High Anticoagulant Intensity: INR = 2.5-3.5 Performed By: #### O SMO #### [facility] [address] [place], [place] [id number] Property Claims Adjuster: Pankaj Cordoba MD PT Coag (PPP) [Time] 20.3 s High 11.7-14.9 [facility] Comment on above: Performed By: #### O SMO #### [facility] [place] [place] [id number] Property Claims Adjuster: Pankaj Cordoba MD Protime-INRon 06-03-2025 INR Coag (PPP) [Relative time] 1.7 {INR} [facility] Comment on above: Therapeutic Range: Moderate Anticoagulant Intensity: INR = 2.0-3.0 High Anticoagulant Intensity: INR = 2.5-3.5 Interpretation and review of laboratory results Abnormal [facility] PT Coag (PPP) [Time] 20.3 s High [facility] Basic Metab w/rfx MGon 06-02 Anion gap [Moles/Vol] 13 mmol/L Normal 9-16 [facility] Comment on above: Performed By: #### B MPX, PT, CDP ####[facility] [place], [place] [phone] Director: Pankaj Cordoba MD Calcium [Mass/Vol] 9.1 mg/dL Normal 8.6-10.4 [facility] Comment on above: Performed By: #### B MPX, PT, CDP ####[facility] [address] [place], [place] [phone] Director: Pankaj Cordoba MD Chloride [Moles/Vol] 96 mmol/L Low 98-107 [facility] Comment on above: Performed By: #### B MPX, PT, CDP ####[facility] [address] [place], [place] [phone] Director: Pankaj Cordoba MD CO2 [Moles/Vol] 20 mmol/L Normal 20-31 [facility] Comment on above: Performed By: #### B MPX, PT, CDP ####[facility] [address] [place], [place] [phone] Director: Pankaj Cordoba MD Creatinine [Mass/Vol] 0.8 mg/dL Normal 0.7-1.2 [facility] Comment on above: Performed By: #### B MPX, PT, CDP ####[facility] [address] [place], [place] [phone] Director: Pankaj Cordoba MD GFR/1.73 sq M.predicted among non-blacks MDRD (S/P/Bld) [Vol rate/Area] 88 mL/min/{1.73_m2} Normal >60 [facility] Comment on above: Result Comment: These [...] By: #### B MPX, PT, CDP ####[facility] [address] [place] [address] Lab Director: Pankaj Cordoba MD Glucose [Mass/Vol] 117 mg/dL High 74-99 [facility] Comment on above: Performed By: #### B MPX, PT, CDP ####[facility] [address] [place] [address] Lab Director: Pankaj Cordoba MD Potassium [Moles/Vol] 4.7 mmol/L Normal 3.7-5.3 [facility] Comment on above: Performed By: #### B MPX, PT, CDP ####[facility] [address] [place] [address] Lab Director: Pankaj Cordoba MD Sodium [Moles/Vol] 129 mmol/L Low 136-145 [facility] Comment on above: Performed By: #### B MPX, PT, CDP ####[facility] [address] [place] [address] Lab Director: Pankaj Cordoba MD Urea nitrogen [Mass/Vol] 16 mg/dL Normal 8-23 [facility] Comment on above: Performed By: #### B MPX, PT, CDP ####[facility] [address] [place] [address] Lab Director: Pankaj Cordboa MD Basic Metabolic Panel w/ Ref maura to MGon 06-02-2025 Anion gap [Moles/Vol] 13 mmol/L 9 - 16 mmol/L [facility] Calcium [Mass/Vol] 9.1 mg/dL 8.6 - 10. 4 mg/dL [facility] Chloride [Moles/Vol] 96 mmol/L Low 98 - 10 7 mmol/L [facility] CO2 [Moles/Vol] 20 mmol/L 20 - 31 mmol/L [facility] Creatinine [Mass/Vol] 0.8 mg/dL 0.7 - 1.2 mg/dL [facility] Est, Glom Filt Rate 88 - PINF [facility] Comment on above: These results are not [...] 117 mg/dL High 74 - 99 mg/dL [facility] Interpretation and review of laboratory results Abnormal [facility] Potassium [Moles/Vol] 4.7 mmol/L 3.7 - 5.3 mmol/L [facility] Sodium [Moles/Vol] 129 mmol/L Low 136 - 145 mmol/L [facility] Urea nitrogen [Mass/Vol] 16 mg/dL 8 - 23 mg/dL [facility] CBC with Auto Differentialon 06-02-2025 Basophils (Bld) [#/Vol] 0.06 10*3/uL [facility] Basophils/100 WBC (Bld) 1 % 0 - 2 % [facility] Eosinophils (Bld) [#/Vol] 0.08 10*3/uL [facility] Eosinophils/100 WBC (Bld) 1 % 1 - 4 % [facility] Erythrocyte distribution width (RBC) [Ratio] 13.2 % 11.8 - 14.4 % [facility] Hematocrit (Bld) [Volume fraction] 36.5 % Low 40.7 - 50.3 % [facility] Hemoglobin (Bld) [Mass/Vol] 12.3 g/dL Low 13.0 - 17.0 g/dL [facility] Immature granulocytes (Bld) [#/Vol] [facility] Immature granulocytes/100 WBC (Bld) 0 % 0 [facility] Interpretation and review of laboratory results Abnormal [facility] Lymphocytes/100 WBC (Bld) 25 % 24 - 43 % [facility] Lymphocytes/100 WBC (Bld) 1.93 % [facility] MCH (RBC) [Entitic mass] 30.7 pg 25.2 - 33.5 pg [facility] MCHC (RBC) [Mass/Vol] 33.7 g/dL 28.4 - 34.8 g/dL [facility] MCV (RBC) [Entitic vol] 91 fL 82.6 - 102.9 fL [facility] Monocytes/100 WBC (Bld) 11 % 3 - 12 % [facility] Monocytes/100 WBC (Bld) 0.84 % [facility] Neutrophils/100 WBC (Bld) 62 % 36 - 65 % [facility] Nucleated RBC/100 WBC (Bld) [Ratio] 0 % 0.0 per 100 WBC [facility] Platelet mean volume (Bld) [Entitic vol] 11.3 fL 8.1 - 13.5 fL [facility] Platelets (Bld) [#/Vol] 147 10*3/uL [facility] RBC (Bld) [#/Vol] 4.01 10*6/uL Low 4.21 - 5.7 7 m/uL [facility] Segmented neutrophils/100 WBC (Bld) 4.88 % [facility] WBC other (Bld) [#/Vol] 7.8 [facility] CBC with Diffon 06-02-2025 Abs. Basophil 0.06 k/uL Normal 0.00-0.20 [facility] Comment on above: Performed By: #### B MPX, PT, CDP ####[facility] [address] [place] [address] Lab Director: Pankaj Cordoba MD Abs.Imm.Granulocyte <0.03 Normal 0.00-0.30 [facility] Comment on above: Performed By: #### B MPX, PT, CDP ####[employer] [address] [place] [id number] lab Director: Pankaj Cordoba MD Abs.Neutrophil (Seg) 4.88 k/uL Normal 1.50-8.10 [facility] Comment on above: Performed By: #### B MPX, PT, CDP ####[facility] [address] [place] [address] Lab Director: Pankaj Cordoba MD Basophils/100 WBC (Bld) 1 % Normal 0-2 [facility] Comment on above: Performed By: #### B MPX, PT, CDP ####[facility] [address] [place] [address] Lab Director: Pankaj Cordoba MD Eosinophils (Bld) [#/Vol] 0.08 10*3/uL Normal 0.00-0.44 [facility] Comment on above: Performed By: #### B MPX, PT, CDP ####[facility] [address] [place] [phone])[phone] Director: Pankaj Cordoba MD Eosinophils/100 WBC (Bld) 1 % Normal 1-4 [facility] Comment on above: Performed By: #### B MPX, PT, CDP ####[facility] [address] [place] [phone])[phone] Director: Pankaj Cordoba MD Erythrocyte distribution width (RBC) [Ratio] 13.2 % Normal 11.8-14.4 [facility] Comment on above: Performed By: #### B MPX, PT, CDP ####[facility] [address] [place] [address] Lab Director: Pankaj Cordoba MD Hematocrit (Bld) [Volume fraction] 36.5 % Low 40.7-50.3 [facility] Comment on above: Performed By: #### B MPX, PT, CDP ####[facility] [address] [place] [phone])[phone] Director: Pankaj Cordoba MD Hemoglobin (Bld) [Mass/Vol] 12.3 g/dL Low 13.0-17.0 [facility] Comment on above: Performed By: #### B MPX, PT, CDP ####[facility] [address] [place] [address] Lab Director: Pankaj Cordoba MD Immature granulocytes/100 WBC (Bld) 0 % Normal 0 [facility] Comment on above: Performed By: #### B MPX, PT, CDP ####[facility] [address] [place] [address] Lab Director: Pankaj Cordoba MD Lymphocytes (Bld) [#/Vol] 1.93 10*3/uL Normal 1.10-3.70 [facility] Comment on above: Performed By: #### B MPX, PT, CDP ####[address] [address] Lab Director: Pankaj Cordoba MD Lymphocytes/100 WBC (Bld) 25 % Normal 24-43 [facility] Comment on above: Performed By: #### B MPX, PT, CDP ####[facility] [address] [place] [address] [phone] Director: Pankaj Cordoba MD MCH (RBC) [Entitic mass] 30.7 pg Normal 25.2-33.5 [facility] Comment on above: Performed By: #### B MPX, PT, CDP ####[facility] [address] [place] [address] Lab Director: Pankaj Cordoba MD MCHC (RBC) [Mass/Vol] 33.7 g/dL Normal 28.4-34.8 [facility] Comment on above: Performed By: #### B MPX, PT, CDP ####[facility] [address] [place] [address] [phone] Director: Pankaj Cordoba MD MCV (RBC) [Entitic vol] 91.0 fL Normal 82.6-102.9 [facility] Comment on above: Performed By: #### B MPX, PT, CDP ####[facility] [address] [place] [address] [phone] Director: Pankaj Cordoba MD Monocytes (Bld) [#/Vol] 0.84 10*3/uL Normal 0.10-1.20 [facility] Comment on above: Performed By: #### B MPX, PT, CDP ####[facility] [address] [place], [place] [phone] Director: Pankaj Cordoba MD Monocytes/100 WBC (Bld) 11 % Normal 3-12 [facility] Comment on above: Performed By: #### B MPX, PT, CDP ####[facility] [address] [place] [address] Lab Director: Pankaj Cordoba MD Neutrophil (Seg) 62 % Normal 36-65 [facility] Comment on above: Performed By: #### B MPX, PT, CDP ####[facility] [address] [place] [address] [phone] Director: Pankaj Cordoba MD NRBC Automated 0.0 per 100 WBC Normal 0.0 [facility] Comment on above: Performed By: #### B MPX, PT, CDP ####[facility] [address] [place], [place] [phone] Director: Pankaj Cordoba MD Platelet mean volume (Bld) [Entitic vol] 11.3 fL Normal 8.1-13.5 [facility] Comment on above: Performed By: #### B MPX, PT, CDP ####[facility] [address] [place], [place] [phone] Director: Pankaj Cordoba MD Platelets (Bld) [#/Vol] 147 10*3/uL Normal 138-453 [facility] Comment on above: Performed By: #### B MPX, PT, CDP ####[facility] [address] [place] [address] Lab Director: Pankaj Cordoba MD RBC (Bld) [#/Vol] 4.01 10*6/uL Low 4.21-5.77 [facility] Comment on above: Performed By: #### B MPX, PT, CDP ####[employer] [address] [place] [address] lab Director: Pankaj Cordoba MD WBC (Bld) [#/Vol] 7.8 10*3/uL Normal 3.5-11.3 [facility] Comment on above: Performed By: #### B MPX, PT, CDP ####[employer] [address] [place], [place] [id number] lab Director: Pankaj Cordoba MD Glucose,Whole Bloodon 2024 Glucose [Mass/Vol] 127 mg/dL High 75-110 [facility] Glucose [Mass/Vol] 109 mg/dL Normal 75-110 [facility] Glucose [Mass/Vol] 110 mg/dL Normal 75-110 [facility] POC Glucose Fingerstickon Glucose [Mass/Vol] 127 mg/dL High 75 - 110 mg/dL [facility] Interpretation and review of laboratory results Abnormal [facility] Glucose [Mass/Vol] 109 mg/dL 75 - 110 mg/dL [facility] Glucose [Mass/Vol] 110 mg/dL 75 - 110 mg/dL [facility] PTon 06-02-2025 INR Coag (PPP) [Relative time] 1.9 {INR} Normal [facility] Comment on above: Result Comment: Therapeutic Range: Moderate Anticoagulant Intensity: INR = 2.0-3.0 High Anticoagulant Intensity: INR = 2.5-3.5 Performed By: #### B MPX, PT, CDP ####[facility] [address] [place], [place] [id number] lab Director: Pankaj Cordoba MD PT Coag (PPP) [Time] 22.2 s High 11.7-14.9 [facility] Comment on above: Performed By: #### B MPX, PT, CDP ####[facility] [address] [place] [id number] lab Director: Pankaj Cordoba MD Protime-INRon 06-02-2025 INR Coag (PPP) [Relative time] 1.9 {INR} [facility] Comment on above: Therapeutic Range: Moderate Anticoagulant Intensity: INR = 2.0-3.0 High Anticoagulant Intensity: INR = 2.5-3.5 Interpretation and review of laboratory results Abnormal [facility] PT Coag (PPP) [Time] 22.2 s High [facility] CHEMISTRYOrdered By: Christine Stevens on 05-20-2025 Albumin [...] (Bld) [Mass fraction] 5.6 % Normal <=5.9% [facility] ChemAutoSS [id number] 05-20-2025 HbA1c (Bld) [Mass fraction] 5.6 % Normal <=5.9 [facility] Comment on above: Performed By: #### 7 [id number] #### [facility] [address] [place] [address] Lipid Panelon 05-20-2025 Cholesterol [Mass/Vol] 150 mg/dL Normal 120-200 [facility] Comment on above: Performed By: #### 2 [id number] #### [facility] [address] [place] [address] Cholesterol in HDL [Mass/Vol] 57 mg/dL Invalid Interpretation Code [facility] Comment on above: Result Comment: '>= 60 LOW RISK' '<= 40 HIGH RISK' Performed By: #### 2 [id number] #### [facility] [address] [place] [address] Cholesterol in LDL [Mass/Vol] 77 mg/dL Normal <=129 [facility] Comment on above: Performed By: #### 2 [id number] #### [facility] [address] [place] [address] Cholesterol in VLDL [Mass/Vol] 11 mg/dL Normal 7-40 [facility] Comment on above: Performed By: #### 2 [id number] #### [facility] [address] [place] [address] Triglyceride [Mass/Vol] 53 mg/dL Normal <=149 [facility] Comment on above: Performed By: #### 2 [id number] #### [facility] [address] [place] [address] U MA/Cr Ratioon 05-20-2025 Microalb/Cr Ratio NOT CALCULATED Invalid Interpretation Code .0-30.0 [facility] Comment on above: Result Comment: 30-3 00 mg/g Cr indicates an increased risk for diabetic nephropathy. >300 mg/g Cr is consistent with clinical nephropathy. Performed By: #### 1 [id number] #### [facility] [address] [place] [address] U Creatinine 62.9 mg/dL Invalid Interpretation Code [facility] Comment on above: Performed By: #### 1 [id number] #### [facility] [address] [place] [address] U Microalb <0.7 Normal 0.0-1.9 [facility] Comment on above: Performed By: #### 1 [id number] #### [facility] [address] [place] [address] Ambulatory Visit Summaryon 0 05-09-2025 Ambulatory Visit [...] Appointments Tuesday 8:20 AM EDT With: Where: [address] [place] [address]- Tuesday 10:40 AM EDT With: YANIQUE MCNEILL CNP Where: [address] [place] [address]- Tuesday2025 8:00 AM EDT With: Where: [address] [place] [address]- You Need to Complete the Following HgbA1c, [...] Capsules By Mouth Every day Pickup at [facility] Unchanged Turmeric (Turmeric 500 mg oral capsule) 1 Capsules By Mouth Every day as needed for Prophylaxis Unchanged ubiquinone (CoQ10) See instructions Unchanged warfarin (warfarin 5 mg Tab) 1 Tablets By Mouth Every day Pharmacy Information [facility]: [address] [facility] [place] [phone] Allergies No Known Medication Allergies Problems Ongoing [...] in a (more content not included)... Normal [facility] Family Medicine Office/Clini c Noteon 05-09-2025 [...] of clutter to prevent tripping and/or falling. [place] Advance Directives reviewed, at home. Encouraged to [...] patient requests, he will have completed at [facility] prior to next PCP visit. Colonoscopy screenings [...] Voices understandin (more content not included)... Normal [facility] Comment on above: Result Comment: Elec [...] Follow-Up Appointments 2024 8:00 AM EDT Where: [place] [address]- Medications What How Much When Instructions Unchanged [...] us for your care. Normal [facility] BMPon 02-05-2025 Anion gap [Moles/Vol] 8 mmol/L Normal 6-16 [facility] Comment on above: Performed By: #### 2 [id number] #### [facility] [address] [place] [address] Calcium [Mass/Vol] 8.8 mg/dL Low 8.9-11.1 [facility] Comment on above: Performed By: #### 2 [id number] #### [facility] [address] [place] [address] Chloride [Moles/Vol] 99 mmol/L Low 101-111 [facility] Comment on above: Performed By: #### 2 [id number] #### [facility] [address] [place] [address] CO2 [Moles/Vol] 28 mmol/L Normal 21-31 [facility] Comment on above: Performed By: #### 2 [id number] #### [facility] [address] [place] [address] Creatinine [Mass/Vol] 1.0 mg/dL Normal 0.5-1.3 [facility] Comment on above: Performed By: #### 2 [id number] #### [facility] [address] [place] [address] Glucose [Mass/Vol] 104 mg/dL Normal 55-199 [facility] Comment on above: Performed By: #### 2 [id number] #### [facility] [address] [place] [address] Potassium [Moles/Vol] 4.2 mmol/L Normal 3.5-5.3 [facility] Comment on above: Performed By: #### 2 [id number] #### [facility] [address] [place] [address] Sodium [Moles/Vol] 131 mmol/L Low 135-145 [facility] Comment on above: Performed By: #### 2 [id number] #### [facility] [address] [place] [address] Urea nitrogen [Mass/Vol] 13 mg/dL Normal 5-21 [facility] Comment on above: Performed By: #### 2 [id number] #### [facility] [address] [place] [address] Urea nitrogen/Creatinine [Mass ratio] 13 No Units Normal 10-20 [facility] Comment on above: Performed By: #### 2 [id number] #### [facility] [address] [place] [address] CHEMISTRYOrdered By: SYSTEM SYSTEM on 02-05-2025 Anion [...] reports as effective. Ongoing follow-up with a heel painter is planned for later in February. The [...] confirmation of an upcoming appointment with a heel painter later in February to further assess their [...] mcg(0.025 mg) (more content not included)... Normal [facility] Comment on above: Result Comment: Elec tronically Signed By: Adam COHN, Edwin Lopez.br\Date and Time Signed: 02/05/25 13:47 EDT eGFRon 02-05-2025 eGFR 75 mL/min/1.73 m2 Normal >=59 [facility] Comment on above: Performed By: #### 1 [id number] #### [facility] [address] [place] [address] Ambulatory Visit Summaryon 0 01-24-2025 Ambulatory Visit [...] Follow-Up Appointments Tuesday 1:30 PM EDT With: Edwin Garcia MD Where: [address] [id number]- 2024 8:00 AM EDT With: Where: [address] [address]- Medications What How Much When Instructions Changed sodium chloride (Sodium Chloride 1 g oral tablet) See instructions 1 gram orally BID Pickup at [facility] Unchanged atenolol (atenolol 25 mg [...] physician if questions or concerns Pharmacy Information [facility]: [address] [facility] [place] [phone] Allergies No Known Medication Allergies Problems Ongoing [...] in adult (more content not included)... Normal [facility] BMPon 01-24-2025 Anion gap [Moles/Vol] 9 mmol/L Normal 6-16 [facility] Comment on above: Performed By: #### 2 [id number] #### [facility] [address] [place] [address] Calcium [Mass/Vol] 8.8 mg/dL Low 8.9-11.1 [facility] Comment on above: Performed By: #### 2 [id number] #### [facility] [address] [place] [address] Chloride [Moles/Vol] 98 mmol/L Low 101-111 [facility] Comment on above: Performed By: #### 2 [id number] #### [facility] [address] [place] [address] CO2 [Moles/Vol] 27 mmol/L Normal 21-31 [facility] Comment on above: Performed By: #### 2 [id number] #### [facility] [address] [place] [address] Creatinine [Mass/Vol] 1.0 mg/dL Normal 0.5-1.3 [facility] Comment on above: Performed By: #### 2 [id number] #### [facility] [address] [place] [address] Glucose [Mass/Vol] 114 mg/dL Normal 55-199 [facility] Comment on above: Performed By: #### 2 [id number] #### [facility] [address] [place] [address] Potassium [Moles/Vol] 4.5 mmol/L Normal 3.5-5.3 [facility] Comment on above: Performed By: #### 2 [id number] #### [facility] [address] [place] [address] Sodium [Moles/Vol] 129 mmol/L Low 135-145 [facility] Comment on above: Performed By: #### 2 [id number] #### [facility] [address] [place] [address] Urea nitrogen [Mass/Vol] 12 mg/dL Normal 5-21 [facility] Comment on above: Performed By: #### 2 [id number] #### [facility] [address] [place] [address] Urea nitrogen/Creatinine [Mass ratio] 12 No Units Normal 10-20 [facility] Comment on above: Performed By: #### 2 [id number] #### [facility] [address] [place] [address] CHEMISTRYOrdered By: SYSTEM SYSTEM on 01-24-2025 Anion [...] wear the damaged aids, requiring a future associate program manager visit to resolve this issue. Moreover, the patient is under management for hypothyroidism, consistently taking his prescribed thyroid medication as directed. He denies experiencing notable symptoms of hypothyroidism, such as coldness or heightened fatigue. His reported increased daytime sleep appears to be associated more with lifestyle factors than with hypothyroidism. - Monitoring and follow-up for hyponatremia through scheduled nephrology appointment. - Anticipated associate program manager visit for hearing aid assessment and repair [...] The patient will follow up with a heel painter for further evaluation and management of hyponatremia. We will adjust the sodium supplementation based on the upcoming lab results. Ordered: Basic Metabolic Panel Lab Specimen Collect [id number] TSH With T4fr Reflex 5. 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 An appointment with an appropriate associate program manager has been planned to assess and replace [...] ensure therap (more content not included)... Normal [facility] Comment on above: Result Comment: Elec tronically Signed By: Adam COHN, Edwin Lopez.br\Date and Time Signed: 01/24/25 14:16 EDT TSH With T4fr Reflexon 01-24 TSH Qn 2.69 m[IU]/L Normal 0.34-5.60 [facility] Comment on above: Performed By: #### 1 [id number] #### [facility] [address] [place] [address] eGFRon 01-24-2025 eGFR 75 mL/min/1.73 m2 Normal >=59 [facility] Comment on above: Performed By: #### 1 [id number] #### [facility] [address] [place] [address] Population Healthon 01-15-20 [facility] Case Information Case Priority: None Programs: -- Referral Source: Fiscal Manager Referral Reason: Care coordination Case Type: Transition [...] tcm note. Created By: Alec Rodrigez Normal [facility] BMPon 01-09-2025 Anion gap [Moles/Vol] 9 mmol/L Normal 6-16 [facility] Comment on above: Performed By: #### 2 [id number] #### [facility] [address] [place] [address] Calcium [Mass/Vol] 9.0 mg/dL Normal 8.9-11.1 [facility] Comment on above: Performed By: #### 2 [id number] #### [facility] [address] [place] [address] Chloride [Moles/Vol] 93 mmol/L Low 101-111 [facility] Comment on above: Performed By: #### 2 [id number] #### [facility] [address] [place] [address] CO2 [Moles/Vol] 27 mmol/L Normal 21-31 [facility] Comment on above: Performed By: #### 2 [id number] #### [facility] [address] [place] [address] Creatinine [Mass/Vol] 0.8 mg/dL Normal 0.5-1.3 [facility] Comment on above: Performed By: #### 2 [id number] #### [facility] [address] [place] [address] Glucose [Mass/Vol] 110 mg/dL Normal 55-199 [facility] Comment on above: Performed By: #### 2 [id number] #### [facility] [address] [place] [address] Potassium [Moles/Vol] 4.1 mmol/L Normal 3.5-5.3 [facility] Comment on above: Performed By: #### 2 [id number] #### [facility] [address] [place] [address] Sodium [Moles/Vol] 125 mmol/L Low 135-145 [facility] Comment on above: Performed By: #### 2 [id number] #### [facility] [address] [place] [address] Urea nitrogen [Mass/Vol] 12 mg/dL Normal 5-21 [facility] Comment on above: Performed By: #### 2 796201 #### [facility] [address] [place] [address] Urea nitrogen/Creatinine [Mass ratio] 15 No Units Normal 10-20 [facility] Comment on above: Performed By: #### 2 [id number] #### [facility] [address] [place] [address] CHEMISTRYOrdered By: SYSTEM SYSTEM on 01-09-2025 Anion [...] 01-09-2025 eGFR 88 mL/min/1.73 m2 Normal >=59 [facility] Comment on above: Performed By: #### 1 [id number] #### [facility] [address] [place] [address] [facility] 01-07-20 [facility] Case Information Case Priority: None Programs: -- Referral Source: Fiscal Manager Referral Reason: Care coordination Case Type: Transition Care Management Risk Score: -- Case Status: Enrolled (December 17, 2024) Date Assigned: December 17, 2024 Assigned By: Alec Rodrigez Date Enrolled: December 17, 2024 Assigned Primary Personnel: Alec Rodrigez Assigned Secondary Personnel: -- Case Physician: Adam COHN, Edwin Cole Problems Ongoing ASCVD (arteriosclerotic cardiovascular disease) [...] changes as of 01-12, he'll be with [facility] Medicare. Patient has medication refill request, proposed [...] tcm note. Created By: Alec Rodrigez Normal [facility] BMPon 12-31-2024 Anion gap [Moles/Vol] 10 mmol/L Normal 6-16 [facility] Comment on above: Performed By: #### 2 [id number] #### [facility] [address] [place] [address] Calcium [Mass/Vol] 9.3 mg/dL Normal 8.9-11.1 [facility] Comment on above: Performed By: #### 2 [id number] #### [facility] [address] [place] [address] Chloride [Moles/Vol] 95 mmol/L Low 101-111 [facility] Comment on above: Performed By: #### 2 [id number] #### [facility] [address] [place] [address] CO2 [Moles/Vol] 27 mmol/L Normal 21-31 [facility] Comment on above: Performed By: #### 2 [id number] #### [facility] [address] [place] [address] Creatinine [Mass/Vol] 0.8 mg/dL Normal 0.5-1.3 [facility] Comment on above: Performed By: #### 2 [id number] #### [facility] [address] [place] [address] Glucose [Mass/Vol] 90 mg/dL Normal 55-199 [facility] Comment on above: Performed By: #### 2 [id number] #### [facility] [address] [place] [address] Potassium [Moles/Vol] 4.3 mmol/L Normal 3.5-5.3 [facility] Comment on above: Performed By: #### 2 618000 #### [facility] [address] [place] [address] Sodium [Moles/Vol] 128 mmol/L Low 135-145 [facility] Comment on above: Performed By: #### 2 302989 #### [facility] [address] [place] [address] Urea nitrogen [Mass/Vol] 13 mg/dL Normal 5-21 [facility] Comment on above: Performed By: #### 2 863130 #### [facility] [address] [place] [address] Urea nitrogen/Creatinine [Mass ratio] 16 No Units Normal 10-20 [facility] Comment on above: Performed By: #### 2 640619 #### [facility] [address] [place] [address] CHEMISTRYOrdered By: SYSTEM SYSTEM on 12-31-2024 Anion [...] 12-31-2024 eGFR 88 mL/min/1.73 m2 Normal >=59 [facility] Comment on above: Performed By: #### 1 [id number] #### [facility] [address] [place] [address] Family Medicine Office/Clini c Noteon 12-24-2024 Family [...] changes. We (more content not included)... Normal [facility] Comment on above: Result Comment: Elec tronically Signed By: Edwin Garcia MD\.br\Date and Time Signed: 12/24/24 13:31 [facility] 12-24-19 [facility] Case Information Case Priority: None Programs: -- Referral Source: Fiscal Manager Referral Reason: Care coordination Case Type: Transition [...] Case discussion Contact Type: Patient Contact Name: VJDARIEL Notes: TCM#1- See tcm note. Created By: Alec Rodrigez Normal [facility] BMPon 12-18-2024 Anion gap [Moles/Vol] 10 mmol/L Normal 6-16 [facility] Comment on above: Performed By: #### 2 [id number] #### [facility] [address] [place] [address] Calcium [Mass/Vol] 9.1 mg/dL Normal 8.9-11.1 [facility] Comment on above: Performed By: #### 2 462814 #### [facility] [address] [place] [address] Chloride [Moles/Vol] 98 mmol/L Low 101-111 [facility] Comment on above: Performed By: #### 2 953295 #### [facility] [address] [place] [address] CO2 [Moles/Vol] 27 mmol/L Normal 21-31 [facility] Comment on above: Performed By: #### 2 064511 #### [facility] [address] [place] [address] Creatinine [Mass/Vol] 0.9 mg/dL Normal 0.5-1.3 [facility] Comment on above: Performed By: #### 2 217603 #### [facility] [address] [place] [address] Glucose [Mass/Vol] 113 mg/dL Normal 55-199 [facility] Comment on above: Performed By: #### 2 [id number] #### [facility] [address] [place] [address] Potassium [Moles/Vol] 3.9 mmol/L Normal 3.5-5.3 [facility] Comment on above: Performed By: #### 2 962185 #### [facility] [address] [place] [address] Sodium [Moles/Vol] 131 mmol/L Low 135-145 [facility] Comment on above: Performed By: #### 2 794226 #### [facility] [address] [place] [address] Urea nitrogen [Mass/Vol] 10 mg/dL Normal 5-21 [facility] Comment on above: Performed By: #### 2 [id number] #### [facility] [address] [place] [address] Urea nitrogen/Creatinine [Mass ratio] 11 No Units Normal 10-20 [facility] Comment on above: Performed By: #### 2 [id number] #### [facility] [address] [place] [address] eGFRon 12-18-2024 eGFR 85 mL/min/1.73 m2 Normal >=59 [facility] Comment on above: Performed By: #### 1 [id number] #### [facility] [address] [place] [address] Family Medicine Office/Clini c Noteon 12-17-2024 Family Medicine Office/Clinic Note Family Medicine Office/Clinic Note Chief Complaint ER follow up Confusion and persistent fatigue post-discharge with a concern for recurrent hyponatremia HPI Staff Pt presents today for ER follow up. Hospital: [facility] Visit date:12/14/24 Symptoms the patient presented [...] up with Nephrology. Ordered: Basic Metabolic Panel [facility] External Ambulatory Referral 2. 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 Ordered: Basic Metabolic Panel [facility] External Ambulatory Referral 3. Longstanding persistent atrial fibrillation (I48.11: Longstanding persistent atrial fibrillation) Maintain current management regime, evaluate rhythm control, and anticoagulation status during follow-up visits. Ordered: Basic Metabolic Panel [facility] External Ambulatory Referral 4. Hyponatremia (E87.1: Hypo-osmolality and hyponatremia) Continue monitoring sodium levels closely, with recommended nephrology review for stabilization strategy. No significant lifestyle factors contributing to sodium imbalance noted. Ordered: Basic Metabolic Panel [facility] External Ambulatory Referral 5. Hypothyroid (E03.9: Hypothyroidism, unspecified) Monitor thyroid levels to ensure therapeutic levels are maintained, adjust medications if indicated by lab abnormalities. Ordered: Basic Metabolic Panel [facility] External Ambulatory Referral 6. Nonsmoker (Z78.9: Other specified health status) Please continue to not smoke. Ordered: Basic Metabolic Panel Orders: fluticasone nasal, See Instructions, 48 mL, Refill(s) 1, USE 1 SPRAY IN EACH NOSTRIL TWICE A DAY, [facility], 178, cm, 08/28/24 14:50:00 EDT, Height/Length Dosing, 82.2, kg, 08/28/24 14:50:00 EDT, Weight Dosing sodium chloride, See Instructions, 1 gram orally daily, # 90 tab(s), Refills(s) 0, Pharmacy: [facility], 178.6, cm, 12/17/24 15:05:00 EST, Height/Length Dosing, 78.5, kg, 12/17/24 15: (more content not included)... Normal [facility] Comment on above: Result Comment: Elec tronically Signed By: Adam COHN, Edwin Cole\.br\Date and Time Signed: 12/17/24 15:29 [facility] 12-17-19 [facility] Case Information Case Priority: None Programs: -- Referral Source: Fiscal Manager Referral Reason: Care coordination Case Type: Transition [...] Daily, 1 refills fluticasone Nasal 0.05 mg/inh [place], See Instructions, Self Directed gabapentin 300 mg [...] Care Plan Progress Note Admit Date: 12/14/24 [facility] Date of Discharge: 12/15/24 Follow-up appointment [...] cold wea (more content not included)... Normal [facility] Main OR Intraoperative Recor don 11-20-2024 Main OR Intraoperative Record Main OR Intraoperative Record IntraOp Document Type FT Summary Primary Physician: Axel Hernández DO Finalized Date/Time: 11/20/24 07:56:52 Pt. Name: DARIEL ZABALA/Sex: 1940 Male Med Rec #: [id number] Physician: Axel Hernández DO Financial #: [id number] Pt. Type: A Room/Bed: [facility] Admit/Disch: 11/19/24 09:28:12 - 11/19/24 14:30:00 Institution: [...] 1 Entry 2 Entry 3 Case Attendee Ethan Sanchez CRNA, DO, Michael T Boyer CST, Chau Chowdhury Performed JULIETA Surgeon - Primary SAWMILL MANAGER/SA Time In 11/19/24 12:10:00 11/19/24 12:23:00 11/19/24 12:10:00 Time Out 11/19/24 12:37:00 11/19/24 12:35:00 11/19/24 12:37:00 Procedure CARPAL TUNNEL CARPAL TUNNEL CARPAL TUNNEL RELEASE(Left) RELEASE(Left) RELEASE(Left) Comments DR LOU SUPERVISING Last Modified By: Ambrocio Borges Terry T Sweene, Terry T 11/19/24 12:45:19 11/19/24 12:53:03 11/19/24 12:45:19 Entry 4 Entry 5 Case Attendee Ambrocio Borges Laura C Role Performed Senior Devops Engineer - Primary Scrub - Primary Time In [...] CRNA, Given Participants Edgar DO, Giana Lobato SAWMILL MANAGER, Rudy Woodward Laura C, Ambrocio Borges Time [...] and tissue Entry 1 Skin Integrity Intact, [place], Warm, & Skin Abnormality No Dry Outcomes [...] Hand Ta (more content not included)... Normal [facility] Operative Reporton Operative Report Operative Report [...] PATIENT CONDITION: Satisfactory Deanna Weller Dictated: 11/19/2024 [id number] Transcribed: 11/19/2024 cc:Finn Medina [facility] Comment on above: Result Comment: Elec tronically Signed By: Axel Hernández DO\.br\Date and Time Signed: 11/20/24 16:36 EST BMPon 11-19-2024 Anion gap [Moles/Vol] 10 mmol/L Normal 6-16 [facility] Comment on above: Order Comment: To be drawn day of surgery. Performed By: #### 2 [id number] #### [facility] [address] [place] [address] Calcium [Mass/Vol] 9.2 mg/dL Normal 8.9-11.1 [facility] Comment on above: Order Comment: To be drawn day of surgery. Performed By: #### 2 [id number] #### [facility] [address] [facility] [place] [address] Chloride [Moles/Vol] 98 mmol/L Low 101-111 [facility] Comment on above: Order Comment: To be drawn day of surgery. Performed By: #### 2 [id number] #### [facility] [address] [place] [address] CO2 [Moles/Vol] 26 mmol/L Normal 21-31 [facility] Comment on above: Order Comment: To be drawn day of surgery. Performed By: #### 2 063706 #### [facility] [address] [place] [address] Creatinine [Mass/Vol] 0.9 mg/dL Normal 0.5-1.3 [facility] Comment on above: Order Comment: To be drawn day of surgery. Performed By: #### 2 [id number] #### [facility] [address] [place] [address] Glucose [Mass/Vol] 77 mg/dL Normal 55-199 [facility] Comment on above: Order Comment: To be drawn day of surgery. Performed By: #### 2 746124 #### [facility] [address] [place] [address] Potassium [Moles/Vol] 4.2 mmol/L Normal 3.5-5.3 [facility] Comment on above: Order Comment: To be drawn day of surgery. Performed By: #### 2 804218 #### [facility] [address] [facility] [place] [address] Sodium [Moles/Vol] 130 mmol/L Low 135-145 [facility] Comment on above: Order Comment: To be drawn day of surgery. Performed By: #### 2 [id number] #### [facility] [address] [place] [address] Urea nitrogen [Mass/Vol] 8 mg/dL Normal 5-21 [facility] Comment on above: Order Comment: To be drawn day of surgery. Performed By: #### 2 475883 #### [facility] [address] [place] [address] Urea nitrogen/Creatinine [Mass ratio] 9 No Units Low 10-20 [facility] Comment on above: Order Comment: To be drawn day of surgery. Performed By: #### 2 [id number] #### [facility] [address] [place] [address] CHEMISTRYOrdered By: Lab ROP User on 11-19-2024 Glucose [Mass/Vol] 78 mg/dL Normal 55 - 99 mg/dL [facility] POC Subsection Comment on above: Result Comment: Hilary danna Meter POC Username MAYA SOTELO Invalid Interpretation Code [facility] POC Subsection Sodium [Moles/Vol] [id number] mmol/L Invalid Interpretation Code [facility] POC Subsection Sodium [Moles/Vol] [id number] mmol/L Invalid Interpretation Code [facility] POC Subsection CHEMISTRYOrdered By: SYSTEM SYSTEM on [...] 38.5 s High 25.1 - 36.5 second(s) [facility] Auto Coag Comment on above: Interpretive Data: [...] the same coagulation reagent and instrumentation as [facility]. Currently there are no coagulation studies available worldwide for children to 14 days, and no normal ranges. Heparin therapeutic range (represented by Anti-Factor Xa activity of 0.2 - 0.4 U/mL) corresponds to PTT of 56.6 - 109.0 sec. INR Coag (PPP) [Relative time] 1.11 {INR} Invalid Interpretation Code [facility] Auto Coag Comment on above: Interpretive Data: I NR results are specifically intended to assess patients stabilized on long-term Anticoagulation therapy suggested INR s Less Intensive Anticoagulation 2.0 3.0 Conventional Range 3.0 4.5 PT Coag (PPP) [Time] 12.5 s Normal 9.4 - 1 2.5 second(s) [facility] Auto Coag Comment on above: Interpretive Data: [...] the same coagulation reagent and instrumentation as [facility]. Currently there are no coagulation studies available worldwide for children to 14 days, and no normal ranges. Capillary Glucose POCon Glucose [Mass/Vol] 78 mg/dL Normal 55-99 [facility] Comment on above: Result Comment: Hilary merinod Meter Performed By: #### 2 [id number] #### [facility] [address] [place] [address] Discharge Instructionson Discharge Instructions Discharge Instructions DARIEL [...] Tuesday 10:15 AM EST With: Gracy DOTY, iDxon Schumacher Where: [facility]iology [facility] 2024 8:00 AM EDT With: Where: [facility] [address] [address]- New Follow Up Appointments after Discharge Follow Up with GORDO Weller When: 11/28/2024 01:00 PM EST Comments: Keep scheduled appointment. Call for any problems. Where: [address] [place] [phone]- dscovered (1) Medications What How Much When Instructions [...] fluticasone nasal (fluticasone Nasal 0.05 mg/ inh [place]) See instructions USE 1 SPRAY IN EACH [...] Allergies No Known Medication Allergies [employer] [place], [place] [facility] CARPAL TUNNEL RELEASE INSTRUCTIONS [...] if the (more content not included)... Normal [facility] Comment on above: Result Comment: Elec tronically Signed By: Dirk KHAN, Maya Vanegas\.br\Date and Time Signed: 11/19/24 13:12 EST [facility] CAPILLARY GLUCOSE POCon 11-19-2024 Glucose [Mass/Vol] 78 mg/dL 55 - 99 mg/dL [facility] Comment on above: Cleaned Meter Original Ordering Provider: DO Axel RUIZISYFINESSE [facility] Main OR PACU I Recordon Main OR PACU I Record Main OR PACU I Record PACU Phase I Document Type FT Summary Primary Physician: Axel Hernández DO Finalized Date/Time: 11/19/24 13:24:52 Pt. Name: DARIEL ZABALA /Sex: 1940 Male Med Rec #: [id number] Physician: Axel Hernández DO Financial #: [id number] Pt. Type: A Room/Bed: Admit/Disch: 11/19/24 09:28:12 [...] 13:24 Vicki Sethi RN 11/19/24 13:24 Normal [facility] Main OR PACU II Recordon Main OR PACU II Record Main OR PACU II Record PACU Phase II Document Type FT Summary Primary Physician: Axel Hernández DO Finalized Date/Time: 11/19/24 14:27:02 Pt. Name: DARIEL ZABALA/Sex: 1940 Male Med Rec #: [id number] Physician: Axel Hernández DO Financial #: [id number] Pt. Type: A Room/Bed: [place] [address] Admit/Disch: 11/19/24 09:28:12 - Institution: Case Times [...] By: Maya Sotelo RN 11/19/24 14:27 Normal [facility] Main OR Preoperative Recordo n 11-19-2024 Main OR Preoperative Record Main OR Preoperative Record PreOp Document Type FT Summary Primary Physician: Axel Hernández DO Finalized Date/Time: 11/19/24 12:53:23 Pt. Name: DARIEL ZABALA/Sex: 1940 Male Med Rec #: [id number] Physician: Axel Hernández DO Financial #: [id number] Pt. Type: Room/Bed: [facility] Admit/Disch: 11/19/24 09:28:12 - Institution: [...] 11/19/24 12:53 Ambrocio Borges 11/19/24 12:53 Normal [facility] PT & PTTon 11-19-2024 aPTT Coag (PPP) [Time] 38.5 second(s) High 25.1-36.5 [facility] Comment on above: Result Comment: Para [...] the same coagulation reagent and instrumentation as [facility]. Currently there are no coagulation studies available worldwide for children to 14 days, and no normal ranges. Heparin therapeutic range (represented by Anti-Factor Xa activity of 0.2 - 0.4 U/mL) corresponds to PTT of 56.6 - 109.0 sec. Performed By: #### 1 [id number] #### [facility] [address] [place] [address] INR Coag (PPP) [Relative time] 1.11 {INR} Invalid Interpretation Code [facility] Comment on above: Result Comment: INR results are specifically intended to assess patients stabilized on long-term Anticoagulation therapy suggested INR???s ???Less Intensive Anticoagulation??? 2.0 ??? 3.0 Conventional Range 3.0 ??? 4.5 Performed By: #### 1 [id number] #### [facility] [address] [place] [address] PT Coag (PPP) [Time] 12.5 second(s) Normal 9.4-12.5 [facility] Comment on above: Result Comment: 15 [...] the same coagulation reagent and instrumentation as [facility]. Currently there are no coagulation studies available worldwide for children to 14 days, and no normal ranges. Performed By: #### 1 [id number] #### [facility] [address] [place] [address] eGFRon 11-19-2024 eGFR 85 mL/min/1.73 m2 Normal >=59 [facility] Comment on above: Performed By: #### 1 [id number] ####[facility] [address] [facility] [place] [address] BMPon 11-12-2024 Anion gap [Moles/Vol] 7 mmol/L Normal 6-16 [facility] Comment on above: Performed By: #### 2 [id number] #### [facility] [address] [place] [address] Calcium [Mass/Vol] 8.8 mg/dL Low 8.9-11.1 [facility] Comment on above: Performed By: #### 2 [id number] #### [facility] [address] [place] [address] Chloride [Moles/Vol] 97 mmol/L Low 101-111 [facility] Comment on above: Performed By: #### 2 [id number] #### [facility] [address] [place] [address] CO2 [Moles/Vol] 28 mmol/L Normal 21-31 [facility] Comment on above: Performed By: #### 2 [id number] #### [facility] [address] [place] [address] Creatinine [Mass/Vol] 0.9 mg/dL Normal 0.5-1.3 [facility] Comment on above: Performed By: #### 2 [id number] #### [facility] [address] [place] [address] Glucose [Mass/Vol] 106 mg/dL Normal 55-199 [facility] Comment on above: Performed By: #### 2 [id number] #### [facility] [address] [place] [address] Potassium [Moles/Vol] 4.4 mmol/L Normal 3.5-5.3 [facility] Comment on above: Performed By: #### 2 [id number] #### [facility] [address] [place] [address] Sodium [Moles/Vol] 128 mmol/L Low 135-145 [facility] Comment on above: Performed By: #### 2 [id number] #### [facility] [address] [place] [address] Urea nitrogen [Mass/Vol] 12 mg/dL Normal 5-21 [facility] Comment on above: Performed By: #### 2 [id number] #### [facility] [address] [place] [address] Urea nitrogen/Creatinine [Mass ratio] 13 No Units Normal 10-20 [facility] Comment on above: Performed By: #### 2 [id number] #### [facility] [address] [place] [address] CHEMISTRYOrdered By: SYSTEM SYSTEM on 11-12-2024 Anion [...] (Bld) [Mass fraction] 5.4 % Normal <=5.9% [facility] ChemAutoSS [id number] 11-12-2024 HbA1c (Bld) [Mass fraction] 5.4 % Normal <=5.9 [facility] Comment on above: Performed By: #### 7 [id number] #### [facility] [address] [place] [address] Inpatient Patient Summaryon 11-12-2024 Inpatient Patient Summary Inpatient Patient Summary [address] [address] [facility] Clinical Discharge Instructions PERSON INFORMATION Name: DARIEL ZABALA PHYSICIANS Admitting Physician: Axel Hernández DO Attending Physician: Axel Hernández DO PCP: Edwin Garcia MD Discharge Diagnosis: Carpal tunnel syndrome on left Comment: PATIENT EDUCATION INFORMATION Instructions: Edgar Gonzalez Carpal Tunnel Release Instructions (Custom) (CUSTOM) Medication Leaflets: Follow up: With: Address: When: Axel Hernández [address] [place] [address] dscovered (1) Comments: Keep scheduled appointment Type Location Start [facility] Surgical Services 11/19/2024 2:15 PM 11/19/2024 2:45 PM Confirmed Cardiology Follow Up (FT) [facility] 12/12/2024 10:15 AM 12/12/2024 10:30 AM Confirmed Medicare Wellness Subsequent [facility] FM Jackie 05/02/2025 8:00 AM 05/02/2025 9:00 [...] 1. fluticasone nasal (fluticasone Nasal 0.05 mg/inh [place]) USE 1 SPRAY IN EACH NOSTRIL TWICE [...] Tablets By Mouth every day. Comment: Normal [facility] Outpatient Surgery Discharge Instructionon 11-12-2024 Outpatient Surgery Discharge Instruction Outpatient Surgery Discharge Instruction [address] [address] Patient Discharge Instructions PERSON INFORMATION [...] Follow up: With: Address: When: Axel Hernández [address] [place] [id number] dscovered (1) Comments: Keep scheduled appointment Type Location Start [facility] Surgical Services 11/19/2024 2:15 PM 11/19/2024 2:45 PM Confirmed Cardiology Follow Up (FT) [facility] 12/12/2024 10:15 AM 12/12/2024 10:30 AM Confirmed Medicare Wellness Subsequent [facility] [place] 05/02/2025 8:00 AM 05/02/2025 9:00 AM Confirmed [...] to serve you. Thank you for choosing [facility] HERE ARE THE MEDICATION CHANGES THAT [...] 1. fluticasone nasal (fluticasone Nasal 0.05 mg/inh [place]) USE 1 SPRAY IN EACH NOSTRIL TWICE [...] Mouth every day. PATIENT EDUCATION INFORMATION Instructions: [place], [place] [facility] CARPAL TUNNEL RELEASE INSTRUCTIONS Post-Operative Week One You will be in a soft dressing from mid palm to forearm. Please remove dressing two days after surgery. At that point, clean daily with peroxide or betadine and place daily fresh bandaids. Cover for showers with waterproof bandaid, op site occlusive dressing (more content not included)... Normal [facility] TSH With T4fr Reflexon 11-12 TSH Qn 2.17 m[IU]/L Normal 0.34-5.60 [facility] Comment on above: Performed By: #### 1 [id number] #### [facility] [address] [place] [address] eGFRon 11-12-2024 eGFR 85 mL/min/1.73 m2 Normal >=59 [facility] Comment on above: Performed By: #### 1 [id number] #### [facility] [address] [place] [address] Ambulatory Visit Summaryon 1 01-02-2024 Ambulatory Visit [...] Tab) fluticasone nasal (fluticasone Nasal 0.05 mg/inh [place]) gabapentin (gabapentin 300 mg Cap) glimepiride (glimepiride [...] Appointments Tuesday 9:20 AM EST With: Where: [address] [id number]- Tuesday 2:15 PM EST With: Where: [facility] Surgical Services Tuesday 10:15 AM EST With: Dixon Dubose PA-C Where: [facility] 2024 8:00 AM EDT With: Where: [address] [address]- Medications What How Much When [...] fluticasone nasal (fluticasone Nasal 0.05 mg/ inh [place]) See instructions USE 1 SPRAY IN EACH [...] choosing us for your care. [facility] Family Medicine Office/Clini c Noteon 11-01-2024 Family [...] cardiovascular disease) (I25.10: Atherosclerotic heart disease of [place] coronary artery without angina pectoris) Denies CP. [...] Recent) 3074 (more content not included)... Normal [facility] Comment on above: Result Comment: Elec tronically Signed By: Adam COHN, Edwin Lopez.br\Date and Time Signed: 11/01/24 09:42 EST BMPon 10-30-2024 Anion gap [Moles/Vol] 11 mmol/L Normal 6-16 [facility] Comment on above: Performed By: #### 2 [id number] #### [facility] [address] [place] [address] Calcium [Mass/Vol] 9.0 mg/dL Normal 8.9-11.1 [facility] Comment on above: Performed By: #### 2 355334 #### [facility] [address] [place] [address] Chloride [Moles/Vol] 96 mmol/L Low 101-111 [facility] Comment on above: Performed By: #### 2 912483 #### [facility] [address] [place] [address] CO2 [Moles/Vol] 27 mmol/L Normal 21-31 [facility] Comment on above: Performed By: #### 2 [id number] #### [facility] [address] [place] [address] Creatinine [Mass/Vol] 0.9 mg/dL Normal 0.5-1.3 [facility] Comment on above: Performed By: #### 2 323709 #### [facility] [address] [place] [address] Glucose [Mass/Vol] 87 mg/dL Normal 55-199 [facility] Comment on above: Performed By: #### 2 856223 #### [facility] [address] [place] [address] Potassium [Moles/Vol] 4.7 mmol/L Normal 3.5-5.3 [facility] Comment on above: Performed By: #### 2 416382 #### [facility] [address] [place] [address] Sodium [Moles/Vol] 129 mmol/L Low 135-145 [facility] Comment on above: Performed By: #### 2 273157 #### [facility] [address] [place] [address] Urea nitrogen [Mass/Vol] 15 mg/dL Normal 5-21 [facility] Comment on above: Performed By: #### 2 159665 #### [facility] [address] [place] [address] Urea nitrogen/Creatinine [Mass ratio] 17 No Units Normal 10-20 [facility] Comment on above: Performed By: #### 2 565237 #### [facility] [address] [place] [address] CBC w/ Auto Diffon 4 Basophils/100 WBC (Bld) 0.9 % Normal 0.0-2.0 [facility] Comment on above: Performed By: #### 2 [id number] #### [facility] [address] [place] [address] Basophils/Leukocytes Auto (Bld) [Pure # fraction] 0.0 E9/L Normal 0.0-0.2 [facility] Comment on above: Performed By: #### 2 [id number] #### [facility] [address] [place] [address] Eosinophils (Bld) [#/Vol] 0.2 E9/L Normal 0.0-0.5 [facility] Comment on above: Performed By: #### 2 062853 #### [facility] [address] [place] [address] Eosinophils/100 WBC (Bld) 3.6 % Normal 0.0-8.0 [facility] Comment on above: Performed By: #### 2 075442 #### [facility] [address] [place] [address] Erythrocyte distribution width (RBC) [Ratio] 13.4 % Normal 10.9-14.2 [facility] Comment on above: Performed By: #### 2 622786 #### [facility] [address] [place] [address] Hematocrit (Bld) [Volume fraction] 36.3 % Low 37.7-49.0 [facility] Comment on above: Performed By: #### 2 080460 #### [facility] [address] [place] [address] Hemoglobin (Bld) [Mass/Vol] 12.8 g/dL Low 13.5-17.5 [facility] Comment on above: Performed By: #### 2 967507 #### [facility] [address] [place] [address] Lymphocytes (Bld) [#/Vol] 1.5 E9/L Normal 1.0-4.0 [facility] Comment on above: Performed By: #### 2 961125 #### [facility] [address] [place] [address] Lymphocytes/100 WBC (Bld) 30.1 % Normal 14.0-50.0 [facility] Comment on above: Performed By: #### 2 183768 #### [facility] [address] [place] [address] MCH (RBC) [Entitic mass] 31.7 pg Normal 27.0-34.0 [facility] Comment on above: Performed By: #### 2 [id number] #### [facility] [address] [place] [address] MCHC (RBC) [Mass/Vol] 35.2 g/dL Normal 31.4-36.0 [facility] Comment on above: Performed By: #### 2 034900 #### [facility] [address] [place] [address] MCV (RBC) [Entitic vol] 90.1 fL Normal 80.0-100.0 [facility] Comment on above: Performed By: #### 2 993522 #### [facility] [address] [place] [address] Monocytes (Bld) [#/Vol] 0.4 E9/L Normal 0.2-1.0 [facility] Comment on above: Performed By: #### 2 525561 #### [facility] [address] [place] [address] Neutrophils (Bld) [#/Vol] 2.9 E9/L Normal 2.0-7.5 [facility] Comment on above: Performed By: #### 2 039557 #### [facility] [address] [place] [address] Neutrophils/100 WBC (Bld) 56.9 % Normal 36.0-75.0 [facility] Comment on above: Performed By: #### 2 359538 #### [facility] [address] [place] [address] Platelet 175.0 E9/L Normal 150.0-500.0 [facility] Comment on above: Performed By: #### 2 500693 #### [facility] [address] [place] [address] Platelet mean volume (Bld) [Entitic vol] 9.1 fL Normal 6.4-10.8 [facility] Comment on above: Performed By: #### 2 279398 #### [facility] [address] [place] [address] RBC (Bld) [#/Vol] 4.0 E12/L Low 4.3-5.9 [facility] Comment on above: Performed By: #### 2 276772 #### [facility] [address] [place] [address] WBC corrected for nucl RBC Auto (Bld) [#/Vol] 5.1 E9/L Normal 4.0-11.0 [facility] Comment on above: Performed By: #### 2 374325 #### [facility] [address] [place] [address] CHEMISTRYOrdered By: SYSTEM SYSTEM on 10-30-2024 Anion [...] 10-30-2024 eGFR 85 mL/min/1.73 m2 Normal >=59 [facility] Comment on above: Performed By: #### 1 [id number] #### [facility] [address] [place] [address] Family Medicine Office/Clini c Noteon 09-10-2024 Family [...] Daily, # 90 tab(s), Refills(s) 0, [facility], cm, 09/10/24 13:01:00 EDT, Height/Length [...] Daily, 1 refills fluticasone Nasal 0.05 mg/inh [place], See Instructions gabapentin 300 mg Cap, 300 [...] Diabetes mellitus (more content not included)... 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 male here [...] E&M of New Patient Low 30-44 Min [id number] 2. 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 Longstanding persistent atrial fibrillation (I48.11: Longstanding persistent atrial fibrillation) Should patient require or opt for a robotic repair he will need to hold his anticoagulation for 5 days prior to the procedure Ordered: E&M of New Patient Low 30-44 Min 88521 Follow-up No qualifying data available Problem List/Past [...] Oral, Daily, 1 refills Flonase 0.05 mg/inh [place], 1 spray(s), Nasal, BID gabapentin 300 mg [...] virus vaccine, inactivated 08/02/2014 Recorded Normal [facility] Comment on above: Result Comment: Elec tronically [...] mg Tab) fluticasone nasal (Flonase 0.05 mg/inh [place]) gabapentin (gabapentin 300 mg Cap) glimepiride (glimepiride [...] 2023 9:15 AM EST With: Adam COHN, Edwin Cole Where: [address] [address]- Tuesday 1:00 PM EST With: Dixon Dubose PA-C Where: [facility] 2024 8:00 AM EDT With: Where: [address] [address]- Medications What How Much When Why Instructions [...] Unchanged fluticasone nasal (Flonase 0.05 mg/ inh [place]) 1 Sprays Nasal Inhalation 2 times a [...] choosing us for your care. Normal [facility] Family Medicine Office/Clini c Noteon 08-07-2024 Family [...] day(s), # 21 tab(s), Refills(s) 0, Pharmacy: [facility]acy #[id number], 178, cm, 07/31/24 14:02:00 EDT, Height/Length [...] Oral, Daily, 1 refills Flonase 0.05 mg/inh [place], 1 spray(s), Nasal, BID gabapentin 300 mg [...] 1 r (more content not included)... Normal [facility] Comment on above: Result Comment: Elec tronically Signed By: Adam COHN, Edwin Lopez.br\Date and Time Signed: 08/07/24 11:41 EDT [...] day(s), # 21 tab(s), Refills(s) 0, Pharmacy: [facility]/pharmacy #[id number], 178, cm, 07/31/24 14:02:00 EDT, Height/Length Dosing, 78.5, kg, 07/31/24 14:02:00 EDT, Weight Dosing tramadol, 50 mg = 1 tab(s), Oral, q4hr, PRN for pain, X 7 day(s), # 21 tab(s), Refills(s) 0, Pharmacy: [facility]/pharmacy #6177, 178, cm, 07/31/24 14:02:00 EDT, Height/Length [...] Oral, Daily, 1 refills Flonase 0.05 mg/inh [place], 1 spray(s), Nasal, BID gabapentin 300 mg [...] influenza virus vaccine, inactivated 08/02/2014 Recorded Normal [facility] Comment on above: Result Comment: Elec tronically Signed By: Edwin Garcia MD\.br\Date and Time Signed: 07/31/24 14:23 [...] mg Tab) fluticasone nasal (Flonase 0.05 mg/inh [place]) gabapentin (gabapentin 300 mg Cap) glimepiride (glimepiride [...] PM EDT With: Edwin Garcia MD Where: [address] [id number]- 2023 9:15 AM EST With: Edwin Garcia MD Where: [address] [address]- Tuesday 1:00 PM EST With: Dixon Dubose PA-C Where: [facility] 2024 8:00 AM EDT With: Where: [address] [id number]- Medications What How Much When Instructions Unchanged [...] Unchanged fluticasone nasal (Flonase 0.05 mg/ inh [place]) 1 Sprays Nasal Inhalation 2 times a [...] choosing us for your care. Normal [facility] Family Medicine Office/Clini c Noteon 07-24-2024 Family Medicine Office/Clinic Note Family Medicine Office/Clinic Note HPI Staff Dariel is an 84 year old male presenting for ER follow up ER followup: Hospital: [place] Visit date: 07/14/24 Symptoms the patient presented [...] patient was under the dosed. Patient stated [place] was helping him more. Patient denies any [...] - Will do Tizanadine - Will do [place] for pain - Follow up in 1 week. - Will send to pain Ordered: [facility] External Ambulatory Referral 2. Inguinal hernia of left side without obstruction or gangrene (K40.90: Unilateral inguinal hernia, without obstruction or gangrene, not specified as recurrent) - Pt cancelled his surgery. - NO pain at this time. - Encouraged follow up Ordered: [facility] External Ambulatory Referral 3. Nonsmoker (Z78.9: Other specified health status) - Please continue to not smoke Ordered: Body Mass Index (BMI) documented 3008F Current tobacco non-user 1036F Depression Screening Negative 3352F [facility] External Ambulatory Referral Most recent diastolic blood [...] q8hr, # 90 tab(s), Refills(s) 1, Pharmacy: [facility]/pharmacy #[id number], 178, cm, 07/24/24 14:57:00 EDT, Height/Length [...] Oral, Daily, 1 refills Flonase 0.05 mg/inh [place], 1 spray(s), Nasal, BID gabapentin 300 mg Cap, 300 mg= 1 cap(s), Oral, Daily, 1 refills glimepiride 2 mg Tab, 2 mg= 1 tab(s), Oral, Daily, 1 refills Jantoven 5 mg oral tablet, 5 mg= 1 tab(s), Oral, Daily levothyroxine 25 mcg (0.025 mg) Tab, 25 mcg= 1 tab(s), Oral, Daily, 1 refills [place] 325 mg-5 mg oral tablet, 1 tab(s), [...] No. [place]hol (more content not included)... Normal [facility] Comment on above: Result Comment: Elec [...] AM EST With: Edwin Garcia MD Where: [address] [address]- Tuesday 1:00 PM EST With: Dixon Dubose PA-C Where: [facility] 2024 8:00 AM EDT With: Where: [address] [address]- Medications What How Much When Instructions Unchanged [...] BID, 16 gram, Refill(s) 0, each nostril, [facility]/pharmacy #[id number], 178, cm, 07/03/24 10:05:00 EDT, Height/Length Dosing, 80.8, kg, 07/03/24 10:05:00 EDT, Weight Dosing gabapentin, 300 mg = 1 cap(s), Oral, Daily, # 90 cap(s), Refills(s) 1, Pharmacy: [facility], 178, cm, 07/03/24 10:05:00 EDT, Height/Length Dosing, 80.8, kg, 07/03/24 10:05:00 EDT, Weight Dosing omeprazole, 40 mg = 1 cap(s), Oral, Daily, # 90 cap(s), Refills(s) 0, Pharmacy: [facility], 178.2, cm, 02/02/24 10:29:00 EDT, Height/Length Dosing, 84.1, kg, 02/02/24 10:29:00 EDT, Weight Dosing sildenafil, 100 mg = 1 tab(s), Oral, Daily, PRN for erectile dysfunction, 1 hour before sexual activity, # 5 tab(s), Refills(s) 0, Pharmacy: [facility], 178, cm, 07/03/24 10:05:00 EDT, Height/Length Dosing, 80.8, kg, 07/03/24 10:05:00 EDT,... 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 Normal [facility] Comment on above: Result Comment: Elec tronically Signed By: Adam COHN, Edwin Cole\.br\Date and Time Signed: 07/03/24 10:27 EDT [...] virus vaccine, inactivated 08/02/2014 Recorded Normal [facility] Comment on above: Result Comment: Elec tronically Signed By: Ericka COHN, Kashif Perez.br\Date and Time Signed: 06/11/24 13:14 EDT CBC w/ Auto Diffon 4 Basophils/100 WBC (Bld) 0.9 % Normal 0.0-2.0 [facility] Comment on above: Performed By: #### 2 [id number] #### [facility] [address] [place] [address] Basophils/Leukocytes Auto (Bld) [Pure # fraction] 0.0 E9/L Normal 0.0-0.2 [facility] Comment on above: Performed By: #### 2 [id number] #### [facility] [address] [place] [address] Eosinophils (Bld) [#/Vol] 0.1 E9/L Normal 0.0-0.5 [facility] Comment on above: Performed By: #### 2 612939 #### [facility] [address] [place] [address] Eosinophils/100 WBC (Bld) 2.4 % Normal 0.0-8.0 [facility] Comment on above: Performed By: #### 2 794090 #### [facility] [address] [place] [address] Erythrocyte distribution width (RBC) [Ratio] 14.4 % High 10.9-14.2 [facility] Comment on above: Performed By: #### 2 617029 #### [facility] [address] [place] [address] Hematocrit (Bld) [Volume fraction] 42.2 % Normal 37.7-49.0 [facility] Comment on above: Performed By: #### 2 287157 #### [facility] [address] [place] [address] Hemoglobin (Bld) [Mass/Vol] 14.0 g/dL Normal 13.5-17.5 [facility] Comment on above: Performed By: #### 2 [id number] #### [facility] [address] [place] [address] Lymphocytes (Bld) [#/Vol] 1.4 E9/L Normal 1.0-4.0 [facility] Comment on above: Performed By: #### 2 478172 #### [facility] [address] [place] [address] Lymphocytes/100 WBC (Bld) 34.0 % Normal 14.0-50.0 [facility] Comment on above: Performed By: #### 2 342864 #### [facility] [address] [place] [address] MCH (RBC) [Entitic mass] 30.8 pg Normal 27.0-34.0 [facility] Comment on above: Performed By: #### 2 825212 #### [facility] [address] [place] [address] MCHC (RBC) [Mass/Vol] 33.1 g/dL Normal 31.4-36.0 [facility] Comment on above: Performed By: #### 2 088108 #### [facility] [address] [place] [address] MCV (RBC) [Entitic vol] 92.9 fL Normal 80.0-100.0 [facility] Comment on above: Performed By: #### 2 648616 #### [facility] [address] [place] [address] Monocytes (Bld) [#/Vol] 0.4 E9/L Normal 0.2-1.0 [facility] Comment on above: Performed By: #### 2 [id number] #### [facility] [address] [place] [address] Neutrophils (Bld) [#/Vol] 2.2 E9/L Normal 2.0-7.5 [facility] Comment on above: Performed By: #### 2 896723 #### [facility] [address] [place] [address] Neutrophils/100 WBC (Bld) 53.4 % Normal 36.0-75.0 [facility] Comment on above: Performed By: #### 2 381421 #### [facility] [address] [place] [address] Platelet 166.0 E9/L Normal 150.0-500.0 [facility] Comment on above: Performed By: #### 2 595410 #### [facility] [address] [place] [address] Platelet mean volume (Bld) [Entitic vol] 9.8 fL Normal 6.4-10.8 [facility] Comment on above: Performed By: #### 2 286445 #### [facility] [address] [place] [address] RBC (Bld) [#/Vol] 4.5 E12/L Normal 4.3-5.9 [facility] Comment on above: Performed By: #### 2 243794 #### [facility] [address] [place] [address] WBC corrected for nucl RBC Auto (Bld) [#/Vol] 4.2 E9/L Normal 4.0-11.0 [facility] Comment on above: Performed By: #### 2 [id number] #### [facility] [address] [place] [address] CHEMISTRYOrdered By: SYSTEM SYSTEM on 05-01-2024 Albumin [...] for this result was chemiluminescence using [employer]'s Access [employer] PSA reagent. Protein [Mass/Vol] 7.1 [...] 05-01-2024 Albumin [Mass/Vol] 4.2 g/dL Normal 3.3-5.0 [facility] Comment on above: Performed By: #### 2 324652 #### [facility] [address] [place] [address] Albumin/Globulin (S) [Mass conc ratio] 1.4 Normal 1.1-2.2 [facility] Comment on above: Performed By: #### 2 168215 #### [facility] [address] [place] [address] ALP [Catalytic activity/Vol] 83 Int._Unit/L Normal 21-98 [facility] Comment on above: Performed By: #### 2 [id number] #### [facility] [address] [place] [address] ALT No additional P-5'-P [Catalytic activity/Vol] 14 Int._Unit/L Normal 6-46 [facility] Comment on above: Performed By: #### 2 [id number] #### [facility] [address] [place] [address] Anion gap [Moles/Vol] 10 mmol/L Normal 6-16 [facility] Comment on above: Performed By: #### 2 [id number] #### [facility] [address] [place] [address] AST [Catalytic activity/Vol] 22 Int._Unit/L Normal 5-43 [facility] Comment on above: Performed By: #### 2 [id number] #### [facility] [address] [place] [address] Bilirubin [Mass/Vol] 0.9 mg/dL Normal 0.0-1.1 [facility] Comment on above: Performed By: #### 2 [id number] #### [facility] [address] [place] [address] Calcium [Mass/Vol] 9.5 mg/dL Normal 8.9-11.1 [facility] Comment on above: Performed By: #### 2 [id number] #### [facility] [address] [place] [address] Chloride [Moles/Vol] 103 mmol/L Normal 101-111 [facility] Comment on above: Performed By: #### 2 [id number] #### [facility] [address] [place] [address] CO2 [Moles/Vol] 29 mmol/L Normal 21-31 [facility] Comment on above: Performed By: #### 2 [id number] #### [facility] [address] [place] [address] Creatinine [Mass/Vol] 1.1 mg/dL Normal 0.5-1.3 [facility] Comment on above: Performed By: #### 2 [id number] #### [facility] [address] [place] [address] Globulin (S) [Mass/Vol] 2.9 g/dL Normal 1.4-4.0 [facility] Comment on above: Performed By: #### 2 [id number] #### [facility] [address] [place] [address] Glucose [Mass/Vol] 104 mg/dL Normal 55-199 [facility] Comment on above: Performed By: #### 2 [id number] #### [facility] [address] [place] [address] Potassium [Moles/Vol] 5.2 mmol/L Normal 3.5-5.3 [facility] Comment on above: Performed By: #### 2 [id number] #### [facility] [address] [place] [address] Protein [Mass/Vol] 7.1 g/dL Normal 6.0-7.8 [facility] Comment on above: Performed By: #### 2 [id number] #### [facility] [address] [place] [address] Sodium [Moles/Vol] 137 mmol/L Normal 135-145 [facility] Comment on above: Performed By: #### 2 [id number] #### [facility] [address] [place] [address] Urea nitrogen [Mass/Vol] 15 mg/dL Normal 5-21 [facility] Comment on above: Performed By: #### 2 [id number] #### [facility] [address] [place] [address] Urea nitrogen/Creatinine [Mass ratio] 14 No Units Normal 10-20 [facility] Comment on above: Performed By: #### 2 [id number] #### [facility] [address] [place] [address] HEMATOLOGYOrdered By: SYSTEM SYSTEM on 05-01-2024 Basophils/100 [...] 05-01-2024 Cholesterol [Mass/Vol] 168 mg/dL Normal 120-200 [facility] Comment on above: Performed By: #### 2 [id number] #### [facility] [address] [place] [address] Cholesterol in HDL [Mass/Vol] 54 mg/dL Invalid Interpretation Code [facility] Comment on above: Result Comment: '>= 60 LOW RISK' '<= 40 HIGH RISK' Performed By: #### 2 [id number] #### [facility] [address] [place] [address] Cholesterol in LDL [Mass/Vol] 99 mg/dL Normal <=129 [facility] Comment on above: Performed By: #### 2 [id number] #### [facility] [address] [place] [address] Cholesterol in VLDL [Mass/Vol] 16 mg/dL Normal 7-40 [facility] Comment on above: Performed By: #### 2 [id number] #### [facility] [address] [place] [address] Triglyceride [Mass/Vol] 78 mg/dL Normal <=149 [facility] Comment on above: Performed By: #### 2 [id number] #### [facility] [address] [place] [address] PSA Screen, Totalon 05-01-20 24 Prostate specific Ag [Mass/Vol] 1.3 ng/mL Normal 0.1-3.5 [facility] Comment on above: Result Comment: The concentration of PSA determined by different manufacturers can vary due to differences in assay methods and reagent specificity. Values obtained from different assay methods cannot be used interchangeably. The methodology used for this result was chemiluminescence using [employer]'s Access Hybritech PSA reagent. Performed By: #### 1 [id number] #### [facility] [address] [place] [address] CHEMISTRYOrdered By: Sara ROP User on 03-26-2024 Glucose [Mass/Vol] 92 mg/dL Normal 55 - 99 mg/dL [facility] POC Subsection Comment on above: Result Comment: Justine garcia RN/ POC Device SN [id number] 1 Invalid Interpretation Code [facility] POC Subsection POC User ID [id number] 1 Invalid Interpretation Code [facility] POC Subsection POC Username LORNA WILSON Invalid Interpretation Code [facility] POC Subsection COAGULATIONOrdered By: Toshia Tadeo on 03-26-2024 aPTT Coag (PPP) [Time] 35.8 s Normal 25.1 - 36.5 second(s) [facility] Auto Coag Comment on above: Interpretive Data: [...] the same coagulation reagent and instrumentation as [facility]. Currently there are no coagulation studies available worldwide for children to 14 days, and no normal ranges. Heparin therapeutic range (represented by Anti-Factor Xa activity of 0.2 - 0.4 U/mL) corresponds to PTT of 56.6 - 109.0 sec. INR Coag (PPP) [Relative time] 1.19 {INR} Invalid Interpretation Code [facility] Auto Coag Comment on above: Interpretive Data: I NR results are specifically intended to assess patients stabilized on long-term Anticoagulation therapy suggested INR s Less Intensive Anticoagulation 2.0 3.0 Conventional Range 3.0 4.5 PT Coag (PPP) [Time] 13.4 s High 9.4 - 1 2.5 second(s) [facility] Auto Coag Comment on above: Interpretive Data: [...] the same coagulation reagent and instrumentation as [facility]. Currently there are no coagulation studies available [...] (Bld) [Mass fraction] 5.6 % Normal <=5.9% [facility] Chem[employer] HEMATOLOGYOrdered By: SYSTEM SYSTEM on 12-01-2023 [...] Normal 80.0 - 100.0 fL Remisol Heme Beadle Absolute 0.5 E9/L Normal 0.2 - 1.0 [...] 0 Remisol Heme Basic Metabolic Panelon 10-15 Calcium [Mass/Vol] 9.3768237 mg/dL Normal 8.6-10 .3 mg/dL [facility] Other Chloride [Moles/Vol] 102 mmol/L Normal 98-107 mmol/L [facility] Other CO2 [Moles/Vol] 32.47614957 mmol/L High 21.0-3 1.0 mmol/L [facility] Other Creatinine [Mass/Vol] 1.79649325 mg/dL Normal 0. 70-1.30 mg/dL [facility] Other GFR/1.73 sq M.predicted MDRD (S/P/Bld) [Vol rate/Area] mL/min/{1.73_m2} [facility] Other Glucose [Mass/Vol] 93 mg/dL Normal 70-100 mg/dL [facility] Other Potassium [Moles/Vol] 4.21914647 mmol/L Normal 3 .5-5.1 mmol/L [facility] Other Sodium [Moles/Vol] 138 mmol/L Normal 136-145 mmol/L [facility] Other Urea nitrogen [Mass/Vol] 13 mg/dL Normal 7-25 mg/dL [facility] Other Complete Blood Count Auto Di ffon 11-02-2023 Basophils (Bld) [#/Vol] 0.842885501 10*3/uL Normal 0.0-0.2 10*3/uL [facility] Other Basophils/100 WBC (Bld) 1.000 % . % [facility] Other Eosinophils (Bld) [#/Vol] 0.637741334 10*3/uL Normal 0.0-0.45 10*3/uL [facility] Other Eosinophils/100 WBC (Bld) 2.100 % . % [facility] Other Erythrocyte distribution width (RBC) [Ratio] 14.000 % Normal 12.0-14.8 % [facility] Other Hematocrit (Bld) [Volume fraction] 38.800 % Normal 38.8-50.0 % [facility] Other Hemoglobin (Bld) [Mass/Vol] 13.940042 g/dL Normal 13.0-17.0 g/dL [facility] Other Lymphocytes (Bld) [#/Vol] 1.680753386 10*3/uL Normal 1.00-4.8 10*3/uL [facility] Other Lymphocytes/100 WBC (Bld) 21.800 % . % [facility] Other MCH (RBC) [Entitic mass] 31.5000 pg Normal 27.5-35.2 pg [facility] Other MCV (RBC) [Entitic vol] 92.7000 fL Normal 83.5-101 fL [facility] Other Monocytes (Bld) [#/Vol] 0.192881990 10*3/uL Normal 0.0-0.8 10*3/uL [facility] Other Monocytes/100 WBC (Bld) 8.500 % . % [facility] Other Neutrophils (Bld) [#/Vol] 4.977894440 10*3/uL Normal 1.8-7.7 10*3/uL [facility] Other Neutrophils/100 WBC (Bld) 66.600 % . % [facility] Other Platelet mean volume (Bld) [Entitic vol] 9.4000 fL Normal 6.6-10.1 fL [facility] Other Platelets (Bld) [#/Vol] 153 10*3/uL Normal 150-450 10*3/uL [facility] Other RBC (Bld) [#/Vol] 4.19 10*6/uL Normal 3.90-5.60 [facility] Other WBC (Bld) [#/Vol] 6.074925672 10*3/uL Normal 4.1 -10.5 10*3/uL [facility] Other Complete Blood Count Auto Diff 6.1 10*3/uL Normal 4.1-10.5 10*3/uL [facility] Other Complete Blood Count Auto Diff 34.0 g/dL Normal 32.5-35.6 g/dL [facility] Other Complete Blood Count Auto Diff 0.1 /100{WBC} Normal 0-0.5 /100{WBC} [facility] Other Prothrombin Time INRon 06-16 INR Coag (PPP) [Relative time] 2.4 {INR} [facility] Other PT Coag (PPP) [Time] 27.800 s High 9.0-12.9 s Nort [facility] Other Coding Summaryon 05-12-2020 Coding Summary CODING DATE: 05/12/2020 [facility] STATUS: Home PAYOR: Medicare MC ADMIT [...] Date Saved: 05/12/2020 02:18 pm Normal [facility] ED Clinical Summaryon 2019 ED Clinical Summary [facility] ? Urgent Care [address] [place], [place] [id number] Clinical Summary PERSON INFORMATION Name: DARIEL ZABALA Age: 80 Years Sex: MALE : 1940 MRN: Acct#: Visit Reason: UC - Ear Problem; BILAT EAR PROBLEM Arrival: 05/08/2020 09:32:00 Discharge: 05/08/2020 10:15:00 LOS: 000 00:43 Check In: 05/08/2020 09:32:00 Checkout: 05/08/2020 10:15:00 Address: [facility] [place] [address] PCP: Provider, Unlisted PROVIDER INFORMATION Provider Role [...] Earwax Buildup, Adult Follow-Up: With: Address: When: [facility], [address] [place], [place] [id number] Business (1) Comments: Please follow-up with your Doctor or Dr. Arellano, Medical Doctor pet supplies salesperson, call their offices and make ointment to be seen in 3 days or sooner for continued care, please purchase gvqk-qez-pfoajvs Debrox which helps breakdown earwax, take all your medications as previously prescribed, drink plenty of water for hydration, and return back to urgent care center for any worsening symptoms, concerns, or complications. DIAGNOSIS: 1:Impacted cerumen of both ears Patient Understands: Yes - Patient/family/careg iver verbalizes understanding of instructions given Comment: Normal [facility] ED Patient Summaryon 020 ED Patient Summary [facility] ? Urgent Care [address] [place], [place] [id number] PATIENT DISCHARGE INSTRUCTIONS Patient Information Name: DARIEL ZABALA Age: 80 Years Date of : 1940 Reason For Visit: UC - Ear Problem; BILAT EAR PROBLEM Arrival Time: 05/08/2020 09:32:00 Primary Care Physician: Provider, Unlisted Attending Physician: Larry Billingsley PA-C Comment: Patient Education With: Address: When: [facility], [address] [id number] Business (1) Comments: Please follow-up with your Doctor or Dr. Arellano, Medical Doctor pet supplies salesperson, call their offices and make ointment to be seen in 3 days or sooner for continued care, please purchase mhbi-syo-dxahrcf Debrox which helps breakdown earwax, take all [...] Follow these instructions at home: ? Take nmvg-rkk-ceisbva and prescription medicines only as told by [...] clean them according to instructions from the director of rehabilitation and your health care provider. Contact a [...] 12/08/2005 Document Revised: 10/12/2018 Document Reviewed: 01/11/2018 [employer] Interactive Patient Education ? 2019 [employer] Medication Information: The exam and treatment you received today in the [facility] Emergency Department were for an urgent problem and are not intended as complete care. It is important for you to follow up with a doctor, nurse practitioner, or physician?s communications assistant for ongoing care. If your symptoms [...] we can reach you if necessary. [facility] Emergency Department has provided you with a complete list of medications post discharge. Please inform your hospital coordinator/provider of your visit and for further instruction [...] both ears (H61.23) UC - Ear Problem ([id number]) If you received any narcotics, sedation, or [...] for Disease Control and Prevention July 2014 [facility] Patient Handouton 05-08-2020 Patient Handout Patient [...] Follow these instructions at home: ? Take kpkh-gyd-jbksjbq and prescription medicines only as told by [...] clean them according to instructions from the director of rehabilitation and your health care provider. Contact a [...] 12/08/2005 Document Revised: 10/12/2018 Document Reviewed: 01/11/2018 [employer] Interactive Patient Education ? 2019 [email or web address]. Normal [facility] Recordon 020 Urgent Care Record [facility] ? Urgent Care [address] [place] [address] PATIENT DISCHARGE INSTRUCTIONS Patient Information Name: DARIEL ZABALA Age: 80 Years Date of : 1940 Reason For Visit: UC - Ear Problem; BILAT EAR PROBLEM Arrival Time: 05/08/2020 09:32:00 Primary Care Physician: Provider, Unlisted Attending Physician: Larry Billingsley PA-C Comment: Visit Diagnosis: Diagnoses This Visit Impacted cerumen of both ears (H61.23) UC - Ear Problem ([id number]) If you received any narcotics, sedation, or [...] legal documents With: Address: When: Andréslisa Arellano [facility], [address] [place] [address] Business (1) Comments: Please follow-up with your Doctor or Dr. Arellano, Medical Doctor pet supplies salesperson, call their offices and make ointment to be seen in 3 days or sooner for continued care, please purchase jujc-kjz-mdvgzlr Debrox which helps breakdown earwax, take all your medications as previously prescribed, drink plenty of water for hydration, and return back to urgent care center for any worsening symptoms, concerns, or complications. Medication Information: The exam and treatment you received today in the [facility] Care were for an urgent problem and are not intended as complete care. It is important for you to follow up with a doctor, nurse practitioner, or physician?s communications assistant for ongoing care. If your symptoms [...] we can reach you if necessary. [facility] has provided you with a complete list of medications post discharge. Please inform your hospital coordinator/provider of your visit and for further instruction [...] Follow these instructions at home: ? Take jcyr-cxg-vuvuqkc and prescription medicines only as told by [...] clean them according to instructions from the director of rehabilitation and your health care provider. Contact a [...] 01/11/2018 [employer] Interactive Patient Education ? 2019 [employer] Viruses or Bacteria What?s got you [...] for Disease Control and Prevention July 2014 [facility] Vital Signs Date Time Vital Sign Value Performing Clinician Facility 07-23-2025 13:28-0400 Body temperature 98.3 [degF] Yanique Mcneill [employer] Work Phone: [facility] 07-23-2025 13:28-0400 Diastolic blood pressure 65 mm[Hg] Yanique Mcneill [employer] Work Phone: [facility] 07-23-2025 13:28-0400 Heart rate 65 /min Yainque Mcneill [employer] Work Phone: [facility] 07-23-2025 13:28-0400 Respiratory rate 18 /min Yanique Mcneill [employer] Work Phone: [facility] 07-23-2025 13:28-0400 SaO2% (BldA) [Mass fraction] 98 % Yanique Mcneill [employer] Work Phone: [facility] 07-23-2025 13:28-0400 Systolic blood pressure 140 mm[Hg] Yanique Reyes [employer] Work Phone: [facility] 07-23-2025 06:00-0400 Body weight 75.5 kg Yanique Mcneill [employer] Work Phone: [facility] 07-22-2025 12:49-0400 Body height 180.34 cm Yanique Mcneill [employer] Work Phone: [facility] 06-23-2025 11:50-0400 Body temperature 97.7 [degF] Erika Crisostomo MD Work Phone: [facility] 06-23-2025 11:50-0400 Diastolic blood pressure 63 mm[Hg] Erika Crisostomo MD Work Phone: [facility] 06-23-2025 11:50-0400 Heart rate 67 /min Erika Crisostomo MD Work Phone: [facility] 06-23-2025 11:50-0400 Respiratory rate 16 /min Erika Crisostomo MD Work Phone: [facility] 06-23-2025 11:50-0400 SaO2% (BldA) [Mass fraction] 99 % Erika Crisostomo MD Work Phone: [facility] 06-23-2025 11:50-0400 Systolic blood pressure 114 mm[Hg] Erika Crisostomo MD Work Phone: [facility] 06-23-2025 04:38-0400 Body mass index (BMI) [Ratio] 22.65 kg/m2 Erika Crisostomo MD Work Phone: [facility] 06-23-2025 04:38-0400 Body weight 71.6 kg Erika Crisostomo MD Work Phone: [facility] 06-19-2025 12:37-0400 Body height 177.8 cm Erika Crisostomo MD Work Phone: [facility] 06-05-2025 15:00-0400 Diastolic blood pressure 47 mm[Hg] Axel Monet DO Work Phone: [employer] 06-05-2025 15:00-0400 Heart rate 71 /min Axel Monet DO Work Phone: [employer] 06-05-2025 15:00-0400 Respiratory rate 15 /min Axel Monet DO [facility] 06-05-2025 15:00-0400 Systolic blood pressure 110 mm[Hg] Axel Monet DO [facility] 06-05-2025 13:00-0400 Body temperature 97.7 [degF] Axel Monet DO [facility] 06-05-2025 06:30-0400 SaO2% (BldA) [Mass fraction] 100 % Axel Monet DO Work Phone[facility] 06-05-2025 04:00-0400 Body mass index (BMI) [Ratio] 26.48 kg/m2 Axel Monet DO [facility] Phone[facility] 06-05-2025 04:00-0400 Body weight 83.7 kg Axel Wingripdomitila ELLIS Work Phone: [facility] 06-02-2025 10:06-0400 Body height 177.8 cm Axel Monet DO [facility] Phone[facility] 11-26-2024 10:27-0500 Body mass index (BMI) [Ratio] 24.74 kg/m2 Emiliano Escamilla MD Work Phone: [facility] 11-26-2024 10:27-0500 Body weight 77.11 kg Emiliano Escamilla MD Work Phone: [facility] 11-26-2024 10:27-0500 Diastolic blood pressure 73 mm[Hg] Emiliano Escamilla MD Work Phone: [facility] 11-26-2024 10:27-0500 Heart rate 87 /min Emiliano Escamilla MD Work Phone: [facility] 11-26-2024 10:27-0500 Systolic blood pressure 148 mm[Hg] Emiliano Escamilla MD Work Phone: [phone] [place] [address] 11-19-2024 14:27-0500 Diastolic blood pressure 82 mm[Hg] Axel Hernández [facility] 11-19-2024 14:27-0500 Heart rate 66 /min Axel Hernández [facility] 11-19-2024 14:27-0500 Mean blood pressure 103 mm[Hg] Axel Edgar [facility] 11-19-2024 14:27-0500 Respiratory rate 18 /min Axel Hernández [facility] 11-19-2024 14:27-0500 SaO2% (BldA) [Mass fraction] 95 % Axel Hernández [facility] 11-19-2024 14:27-0500 Systolic blood pressure 144 mm[Hg] Axel Edgar [facility] 11-19-2024 13:23-0500 Blood Pressure Location Axel Hernández [facility] 11-19-2024 13:23-0500 Body temperature 96.8 [degF] Axel Edgar [facility] 11-19-2024 13:23-0500 Diastolic blood pressure 69 mm[Hg] Axel Edgar [facility] 11-19-2024 13:23-0500 Heart rate 63 /min Axel Edgar [facility] 11-19-2024 13:23-0500 Mean blood pressure 92 mm[Hg] Axel Edgar [facility] 11-19-2024 13:23-0500 Respiratory rate 20 /min Axel Edgar [facility] 11-19-2024 13:23-0500 SaO2% (BldA) [Mass fraction] 99 % Axel Edgar [facility] 11-19-2024 13:23-0500 Systolic blood pressure 139 mm[Hg] Axel Edgar [facility] 11-19-2024 13:05-0500 Body temperature 97.34 [degF] Axel Edgar [facility] 11-19-2024 13:05-0500 Diastolic blood pressure 69 mm[Hg] Axel Edgar [facility] 11-19-2024 13:05-0500 Heart rate 65 /min Axel Hernández [facility] 11-19-2024 13:05-0500 Mean blood pressure 87 mm[Hg] Axel Hernández [facility] 11-19-2024 13:05-0500 Respiratory rate 16 /min Axel Hernández [facility] 11-19-2024 13:05-0500 SaO2% (BldA) [Mass fraction] 97 % Axel Edgar [facility] 11-19-2024 13:05-0500 Systolic blood pressure 122 mm[Hg] Axel Hernández [facility] 11-19-2024 12:40-0500 Body temperature 97.7 [degF] Axel Hernández [facility] 11-19-2024 12:35-0500 Respiratory rate 12 /min Axel Edgar [facility] 11-19-2024 12:30-0500 Body temperature 96.8 [degF] Axel Hernández [facility] 11-19-2024 12:30-0500 Respiratory rate 13 /min Axel Hernández [facility] 11-19-2024 12:25-0500 Body temperature 96.8 [degF] Axel Hernández [facility] 11-19-2024 12:25-0500 Respiratory rate 15 /min Axel Hernández [facility] 11-19-2024 12:20-0500 Body temperature 96.8 [degF] Axel Hernández [facility] 11-19-2024 09:55-0500 Mean blood pressure 85 mm[Hg] Axel Hernández [facility] 11-19-2024 09:52-0500 Mean blood pressure 79 mm[Hg] xAel Hernández [facility] 10-30-2024 10:36-0500 Diastolic blood pressure 67 mm[Hg] Axel Hernández [facility] 10-30-2024 10:36-0500 Heart rate 57 /min Axel Hernández [facility] 10-30-2024 10:36-0500 Mean blood pressure 86 mm[Hg] Axel Ehrnández [facility] 10-30-2024 10:36-0500 Systolic blood pressure 124 mm[Hg] Axel Edgar [facility] 10-30-2024 10:34-0500 Heart rate 56 /min Axel Hernández [facility] 10-30-2024 10:34-0500 SaO2% (BldA) [Mass fraction] 100 % Axel Hernández [facility] 10-30-2024 10:34-0500 Diastolic blood pressure 83 mm[Hg] Axel Hernández [facility] 10-30-2024 10:34-0500 Mean blood pressure 105 mm[Hg] Axel Hernández [facility] 10-30-2024 10:34-0500 Systolic blood pressure 148 mm[Hg] Axel Hernández [facility] 10-03-2024 10:58-0500 Body height 176.5 cm Axel Hernández DO Work Phone: [place] [address]-20-2024 10:58-0500 Body mass index (BMI) [Ratio] 26.64 kg/m2 Axel Hernández DO Work Phone: [facility] 10-03-2024 10:58-0500 Body temperature 98.1 [degF] Axel Hernández DO Work Phone: [facility] 10-03-2024 10:58-0500 Body weight 83.01 kg Axel Hernández DO Work Phone: [facility] 08-28-2024 14:47-0400 Blood Pressure Location Davie Mourany [facility] 08-28-2024 14:47-0400 Diastolic blood pressure 75 mm[Hg] Davie Mourany [facility] 08-28-2024 14:47-0400 Heart rate 65 /min Davie Tristanurany [facility] 08-28-2024 14:47-0400 Respiratory rate 16 /min Davie Tristanurany [facility] 08-28-2024 14:47-0400 Systolic blood pressure 119 mm[Hg] Davie Mourany [facility] 06-11-2024 12:48-0400 Diastolic blood pressure 78 mm[Hg] Kashif Kirnus [facility] 06-11-2024 12:48-0400 Heart rate 70 /min Kashif Kirnus [facility] 06-11-2024 12:48-0400 Respiratory rate 18 /min Kashif Kirnus [facility] 06-11-2024 12:48-0400 SaO2% (BldA) [Mass fraction] 97 % Kashif Kirnus [facility] 06-11-2024 12:48-0400 Systolic blood pressure 138 mm[Hg] Kashif Kirnus [facility] 05-30-2024 13:31-0400 Blood Pressure Location Dixon Dubose [facility] 05-30-2024 13:31-0400 Diastolic blood pressure 70 mm[Hg] Dixon Dubose [facility] 05-30-2024 13:31-0400 Heart rate 75 /min Dixon Dubose [facility] 05-30-2024 13:31-0400 Respiratory rate 18 /min Dixon Dubose [facility] 05-30-2024 13:31-0400 SaO2% (BldA) [Mass fraction] 95 % Dixon Dubose [facility] 05-30-2024 13:31-0400 Systolic blood pressure 130 mm[Hg] Dixon Dubose [facility] 04-20-2024 13:17-0400 Diastolic blood pressure 78 mm[Hg] Kashif Kirnus [facility] 04-20-2024 13:17-0400 Heart rate 62 /min Kashif Kirnus [facility] 04-20-2024 13:17-0400 SaO2% (BldA) [Mass fraction] 97 % Kashif Kirnus [facility] 04-20-2024 13:17-0400 Systolic blood pressure 138 mm[Hg] Kashif Kirnus [facility] 03-26-2024 14:30-0400 Diastolic blood pressure 64 mm[Hg] Axel Hernández [facility] 03-26-2024 14:30-0400 Heart rate 50 /min Axel Hernández [facility] 03-26-2024 14:30-0400 Respiratory rate 16 /min Axel Edgar [facility] 03-26-2024 14:30-0400 SaO2% (BldA) [Mass fraction] 98 % Axel Edgar [facility] 03-26-2024 14:30-0400 Systolic blood pressure 128 mm[Hg] Axel Edgar [facility] 03-26-2024 13:31-0400 Heart rate 54 /min Axel Edgar [facility] 03-26-2024 13:31-0400 SaO2% (BldA) [Mass fraction] 97 % Axel Edgar [facility] 03-26-2024 13:31-0400 Respiratory rate 16 /min Axel Edgar [facility] 03-26-2024 13:30-0400 Body temperature 97.34 [degF] Axel Edgar [facility] 03-26-2024 13:29-0400 Blood Pressure Location Axel Edgar [facility] 03-26-2024 13:29-0400 Diastolic blood pressure 70 mm[Hg] Axel Hernández [facility] 03-26-2024 13:29-0400 Mean blood pressure 88 mm[Hg] Axel Hernández [facility] 03-26-2024 13:29-0400 Systolic blood pressure 125 mm[Hg] Axel Hernández [facility] 03-26-2024 13:20-0400 Body temperature 97.52 [degF] Axel Hernández [facility] 03-26-2024 13:20-0400 Diastolic blood pressure 63 mm[Hg] Axel Hernández [facility] 03-26-2024 13:20-0400 Heart rate 54 /min Axel Edgar [facility] 03-26-2024 13:20-0400 Mean blood pressure 77 mm[Hg] Axel Edgar [facility] 03-26-2024 13:20-0400 Respiratory rate 15 /min Axel Hernández [facility] 03-26-2024 13:20-0400 SaO2% (BldA) [Mass fraction] 97 % Axel Edgar [facility] 03-26-2024 13:20-0400 Systolic blood pressure 104 mm[Hg] Axel Hernández [facility] 03-26-2024 13:15-0400 Mean blood pressure 73 mm[Hg] Axel Hernández [facility] 03-26-2024 13:15-0400 Respiratory rate 15 /min Axel Edgar [facility] 03-26-2024 13:10-0400 Mean blood pressure 72 mm[Hg] Axel Edgar [facility] 03-26-2024 13:10-0400 Respiratory rate 11 /min Axel Edgar [facility] 03-26-2024 12:55-0400 Body temperature 97.52 [degF] Axel Hernández [facility] 03-26-2024 12:50-0400 Respiratory rate 1 /min Axel Hernández [facility] 03-26-2024 09:36-0400 Blood Pressure Location Axel Hernández [facility] 03-26-2024 09:36-0400 Mean blood pressure 112 mm[Hg] Axel Hernández [facility] 03-26-2024 09:34-0400 Mean blood pressure 97 mm[Hg] Axel Edgar [facility] 03-26-2024 09:34-0400 Body temperature 97.34 [degF] Axel Edgar [facility] 03-26-2024 09:34-0400 Blood Pressure Location Axel Edgar [facility] 03-26-2024 09:34-0400 Heart rate 50 /min Axel Edgar [facility] 03-06-2024 08:11-0400 Blood Pressure Location Axel Edgar [facility] 03-06-2024 08:11-0400 Diastolic blood pressure 74 mm[Hg] Axel Edgar [facility] 03-06-2024 08:11-0400 Heart rate 56 /min Axel Edgar [facility] 03-06-2024 08:11-0400 Mean blood pressure 98 mm[Hg] Axel Edgar [facility] 03-06-2024 08:11-0400 Systolic blood pressure 147 mm[Hg] Axel Edgar [facility] 03-06-2024 08:11-0400 Heart rate 57 /min Axel Edgar [facility] 03-06-2024 08:11-0400 SaO2% (BldA) [Mass fraction] 98 % Axel Edgar [facility] 03-06-2024 08:10-0400 Blood Pressure Location Axel Edgar [facility] 03-06-2024 08:10-0400 Body temperature 98.06 [degF] Axel Edgar [facility] 03-06-2024 08:10-0400 Diastolic blood pressure 73 mm[Hg] Axel Edgar [facility] 03-06-2024 08:10-0400 Mean blood pressure 92 mm[Hg] Axel Hernández [facility] 03-06-2024 08:10-0400 Systolic blood pressure 129 mm[Hg] Axel Hernández [facility] 03-06-2024 08:10-0400 Respiratory rate 18 /min Axel Hernández [facility] 11-18-2023 11:00-0500 Body height 180.34 cm Jada Rene Other [facility] Other 11-18-2023 11:00-0500 Body mass index (BMI) [Ratio] 25.38 kg/m2 Jada Rene Other [facility] Other 11-18-2023 11:00-0500 Body temperature 97.6 [degF] Jada Rene Other [facility] Other 11-18-2023 11:00-0500 Body weight 82.56 kg Jada Rene Other [facility] Other 11-18-2023 11:00-0500 Diastolic blood pressure 80 mm[Hg] Jada Rene Other [facility] Other 11-18-2023 11:00-0500 Respiratory rate 18 /min Jada Rene Other [facility] Other 11-18-2023 11:00-0500 SaO2% (BldA) [Mass fraction] 99 % Jada Rene Other [facility] Other 11-18-2023 11:00-0500 Systolic blood pressure 132 mm[Hg] Jada Rene Other [facility] Other 11-02-2023 13:00-0500 Body height 180.34 cm Jada Rene Other [facility] Other 11-02-2023 13:00-0500 Body mass index (BMI) [Ratio] 24.4 kg/m2 Jada Rene Other [facility] Other 11-02-2023 13:00-0500 Body weight 79.38 kg Jada Rene Other [facility] Other 11-02-2023 13:00-0500 Diastolic blood pressure 82 mm[Hg] Jada Rene Other [facility] Other 11-02-2023 13:00-0500 Respiratory rate 18 /min Jada Rene Other [facility] Other 11-02-2023 13:00-0500 SaO2% (BldA) [Mass fraction] 97 % Jada Rene Other [facility] Other 11-02-2023 13:00-0500 Systolic blood pressure 138 mm[Hg] Jada Rene Other [facility] Other 09-21-2023 10:00-0500 Body height 180.34 cm Jada Rene Other [facility] Other 09-21-2023 10:00-0500 Body mass index (BMI) [Ratio] 25.81 kg/m2 Jada Rene Other [facility] Other 09-21-2023 10:00-0500 Body weight 83.96 kg Jada Rene Other [facility] Other 09-21-2023 10:00-0500 Diastolic blood pressure 70 mm[Hg] Jada Rene Other [facility] Other 09-21-2023 10:00-0500 Respiratory rate 18 /min Jada Rene Other [facility] Other 09-21-2023 10:00-0500 SaO2% (BldA) [Mass fraction] 98 % Jada Rene Other [facility] Other 09-21-2023 10:00-0500 Systolic blood pressure 140 mm[Hg] Jada Rene Other [facility] Other 06-16-2023 11:00-0400 Body height 180.34 cm Jada Rene Other [facility] Other 06-16-2023 11:00-0400 Body mass index (BMI) [Ratio] 23.79 kg/m2 Jada Rene Other [facility] Other 06-16-2023 11:00-0400 Body weight 77.38 kg Jada Rene Other [facility] Other 06-16-2023 11:00-0400 Diastolic blood pressure 64 mm[Hg] Jada Rene Other [facility] Other 06-16-2023 11:00-0400 Respiratory rate 18 /min Jada Rene Other [facility] Other 06-16-2023 11:00-0400 SaO2% (BldA) [Mass fraction] 98 % Jada Rene Other [facility] Other 06-16-2023 11:00-0400 Systolic blood pressure 118 mm[Hg] Jada Rene Other [facility] Other Encounters Encounter Date Encounter Type Care Provider Facility Start: 05-13-2026 ambulatory YANIQUE A REYES Facili ty:[facility] [place] Start: 08-08-2025 ambulatory YANIQUE A REYES Facili ty:[facility] [place] Start: 07-31-2025 ambulatory Zechariah CREWS Facility :[facility] [place] Start: 07-25-2025 End: 07-25-2025 ambulatory GARAGE DOOR SERVICE TECHNICIAN YANIQUE A REYES Facility:[facility] [place] Start: 07-24-2025 ambulatory GARAGE DOOR SERVICE TECHNICIAN YANIQUE REYES Faci lity:[facility] [place] Start: 07-24-2025 ambulatory GARAGE DOOR SERVICE TECHNICIAN YANIQUE A REYES Fa cility:[id number] Start: 07-22-2025 End: 07-22-2025 External Result Encounter Win Santillan DO Work Phone: [facility] External [facility] Unsolicited Start: 07-22-2025 End: 07-22-2025 External Result Encounter Win Santillan DO Work Phone: [facility] External Department Unsolicited Start: 07-21-2025 End: 07-21-2025 External Result Encounter Win Santillan DO Work Phone: [facility] External Department Unsolicited Start: 07-21-2025 End: 07-21-2025 External Result Encounter Win Santillan DO Work Phone: [facility] External Department Unsolicited Start: 07-19-2025 Non-patient / Non-visit Axel marshall MD -[facility] Work Phone: Start: 07-19-2025 End: 07-23-2025 Evaluation and management of inpatient Mohamad Billy Facility:[facility] Start: 07-11-2025 End: 07-11-2025 ambulatory YANIQUE A REYES Facility:[facility] Start: 07-08-2025 End: 07-08-2025 ambulatory Jaden Maravilla Facility:[facility] [place] Start: 07-05-2025 End: 07-22-2025 ambulatory YANIQUE A REYES Facility:[id number] Start: 07-04-2025 End: 07-04-2025 ambulatory YANIQUE A REYES Facility:[facility] Start: 06-19-2025 ambulatory YANIQUE A REYES Facili ty:[facility] Start: 06-17-2025 End: 06-23-2025 Evaluation and management of inpatient Ehad Tere COHN Work Phone: [facility] 8 Acute Comment on above: 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 ([facility]) (Primary Dx) Start: 06-14-2025 End: 06-18-2025 ambulatory YANIQUE A REYES Facility:[id number] Start: 06-13-2025 End: 06-13-2025 ambulatory YANIQUE A REYES Facility:[facility] [place] Start: 06-07-2025 End: 06-13-2025 ambulatory YANIQUE A REYES Facility:[id number] Start: 06-07-2025 End: 06-07-2025 ambulatory YANIQUE A REYES Facility:[facility] [place] Start: 06-02-2025 End: 06-05-2025 Evaluation and management of inpatient Axel Monet DO Work Phone: [facility]- MICU Comment on above: Hyponatremia (Primar y Dx) Start: 05-20-2025 End: 05-20-2025 Lab Drop off YNAIQUE A REYES [facility] Start: 05-20-2025 End: 05-20-2025 ambulatory YANIQUETarah MCNEILL Facility:[facility] Start: 05-09-2025 End: 05-09-2025 ambulatory Edwin Gacria Facility:[facility] [place] [facility] Start: 02-05-2025 End: 02-06-2025 Lab Drop off Edwin Garcia [facility] Start: 02-05-2025 End: 02-06-2025 ambulatory Edwin Garcia Facility:[facility] Start: 01-24-2025 End: 01-24-2025 Lab Drop off Edwin Garcia [facility] Start: 01-24-2025 End: 01-24-2025 ambulatory Edwin Garcia Facility:[facility] Start: 01-09-2025 End: 01-09-2025 Lab Drop off Edwin Garcia [facility] Start: 01-09-2025 End: 01-09-2025 ambulatory MD Edwin Garcia Facility:[facility] Start: 12-31-2024 End: 12-31-2024 Lab Drop off Edwin Garcia [facility] Start: 12-31-2024 End: 12-31-2024 ambulatory MD [facility] Start: 12-24-2024 End: 12-24-2024 ambulatory Edwin Garcia Facility:[facility] Start: 12-17-2024 End: 12-17-2024 Lab Drop off Edwin Garcia [facility] Start: 12-17-2024 End: 12-17-2024 ambulatory Edwin Garcia Facility:[facility] Start: 12-17-2024 End: 01-22-2025 ambulatory Edwin Garcia Facility:[id number] Start: 11-28-2024 End: 11-28-2024 Bamboo flowsheet Jose L Chow VISITOR SERVICES TECHNICIAN Work Phone: [facility] Start: 11-28-2024 End: 11-28-2024 Bamboo flowsheet Jose L Chow VISITOR SERVICES TECHNICIAN Work Phone: [facility] Start: 11-28-2024 End: 11-28-2024 Postop follow up visit related to original px Jose L Chow VISITOR SERVICES TECHNICIAN Work Phone: [facility] Comment on above: Status post carpal t unnel release (Primary Dx) Start: 11-28-2024 End: 11-28-2024 ambulatory JOSE L CHOW Not Available Start: 11-26-2024 End: 11-26-2024 Bamboo flowsheet Emiliano Escamilla MD Work Phone: [facility] Start: 11-26-2024 End: 11-26-2024 Bamboo flowsheet Emiliano Escamilla MD Work Phone: [facility] Start: 11-26-2024 End: 11-26-2024 Patient encounter procedure Emiliano Escamilla MD Work Phone: [facility] Comment on above: Foreign body of righ [...] to same day surgery center Axel Hernández [facility] Start: 11-19-2024 End: 11-19-2024 ambulatory Axel Hernández Facility:[facility] Start: 11-13-2024 ambulatory Edwin Garcia Facility :[facility] Start: 11-12-2024 End: 11-12-2024 Lab Drop off Edwin Garcia [facility] Start: 11-12-2024 End: 11-12-2024 ambulatory Edwin Garcia Facility:[facility] Start: 11-01-2024 End: 11-01-2024 ambulatory Edwin Garcia [facility] Start: 10-30-2024 End: 10-30-2024 ambulatory Axel Hernández Facility:[facility] Start: 10-30-2024 End: 10-30-2024 Patient encounter procedure Axel Hernández [facility] Start: 10-03-2024 End: 10-03-2024 Bamboo [...] encounter status Axel Hernández DO Work Phone: [facility] Start: 10-03-2024 End: 10-03-2024 ambulatory AXEL HERNÁNDEZ Not Available Start: 09-28-2024 End: 09-28-2024 Bamboo flowsheet Shala Farrell MD Work Phone: [facility] Start: 09-28-2024 End: 09-28-2024 Bamboo flowsheet Shala Farrell MD Work Phone: [facility] Start: 09-28-2024 End: 09-28-2024 Patient encounter procedure Shala Farrell MD Work Phone: [facility] Comment on above: Pain in both upper e xtremities (Primary Dx); Carpal tunnel syndrome, bilateral Start: 09-28-2024 End: 09-28-2024 ambulatory SHALA FARRELL Not Available Start: 09-10-2024 End: 09-10-2024 ambulatory Edwin Garcia Facility:[facility] [place] Start: 08-28-2024 End: 08-28-2024 ambulatory Davie Vargas Facility:[facility] Start: 08-28-2024 End: 08-28-2024 Patient encounter procedure Davie Vargas [facility] [place] Start: 08-20-2024 End: 08-20-2024 Telephone encounter Shala Farrell MD Work Phone: [facility] 111 Start: 08-13-2024 End: 08-13-2024 ambulatory Nathaniel Bonilla MD Facility: [facility] Start: 08-07-2024 End: 08-07-2024 ambulatory Edwin Garcia Facility:[facility] [place] Start: 07-31-2024 End: 07-31-2024 ambulatory Edwin Garcia Facility:[facility] [place] Start: 07-24-2024 End: 07-24-2024 ambulatory Edwin Garcia Facility:[facility] [place] Start: 07-23-2024 ambulatory Edwin Garcia Facility :[facility] Start: 07-05-2024 ambulatory Axel Hernández Facility :[facility] Start: 07-03-2024 End: 07-03-2024 ambulatory Edwin Garcia Facility:[facility] [place] Start: 06-20-2024 End: 06-20-2024 ambulatory AXEL HERNÁNDEZ Not Available Start: 06-11-2024 End: 06-11-2024 ambulatory XXXX NONE Facility:[facility] Start: 06-11-2024 End: 06-11-2024 Patient encounter procedure Kashif Barnett [facility] Start: 05-30-2024 End: 05-30-2024 ambulatory Edwin Garcia Facility:[facility] Start: 05-30-2024 End: 05-30-2024 Patient encounter procedure Dixon Endy Gracy [facility] Start: 05-21-2024 End: 05-21-2024 Patient encounter procedure Kashif Rafa Julissaromina [facility] Start: 05-01-2024 End: 05-01-2024 Patient encounter procedure Kashif Costan [facility] Start: 05-01-2024 End: 05-01-2024 Lab Drop off Edwin Garcia [facility] Start: 04-20-2024 End: 04-20-2024 Patient encounter procedure Kashif D Julissaromina [facility] Start: 04-04-2024 End: 04-04-2024 ambulatory AXEL HERNÁNDEZ Not Available Start: 03-26-2024 End: 03-26-2024 Admission to same day surgery center Axel Hernández [facility] Start: 03-06-2024 End: 03-06-2024 Patient encounter procedure Axel Hernández [facility] Start: 02-15-2024 End: 02-15-2024 ambulatory AXEL HERNÁNDEZ Not Available Start: 02-15-2024 End: 02-15-2024 ambulatory AXEL HERNÁNDEZ Not Available Start: 12-06-2023 End: 12-06-2023 ambulatory Jada Rene Other [facility] Other Start: 12-06-2023 Telephone encounter Jada Rene [facility] [place] Start: 12-02-2023 End: 12-02-2023 ambulatory Jadaendy Rene Other [facility] Other Start: 12-02-2023 Telephone encounter Jada Rene [facility] [place] Start: 12-01-2023 End: 12-01-2023 Lab Drop off Edwin Garcia [facility] Start: 11-18-2023 End: 11-18-2023 ambulatory Jadaendy Rene Other [facility] Other Start: 11-18-2023 Office outpatient vi sit 25 minutes Jadamary Rene [facility] [place] Start: 11-02-2023 End: 11-02-2023 ambulatory Jadaendy Rene Other [facility] Other Start: 11-02-2023 Office outpatient vi sit 25 minutes Jada Rene [facility] [place] Start: 11-02-2023 Telephone encounter Jada Rene [facility] [place] Start: 10-28-2023 End: 10-28-2023 ambulatory Jadaendy Rene Other [facility] Other Start: 10-28-2023 Telephone encounter Jada Rene [facility] [place] Start: 09-30-2023 End: 09-30-2023 Nurse Triage Venessa Riggins RN NURSE CAMPAIGN MARKETING MANAGER Comment on above: Refill Request Start: 09-30-2023 Telephone encounter Jada Rene [facility] [place] Start: 09-21-2023 End: 09-21-2023 ambulatory Jadaendy Rene Other [facility] Other Start: 09-21-2023 Office outpatient vi sit 25 minutes Jada Rene [facility] [place] Start: 08-29-2023 End: 08-29-2023 ambulatory Jada Rene Other [facility] Other Start: 08-29-2023 Telephone encounter Jada Rene [facility] [place] Start: 08-26-2023 End: 08-26-2023 ambulatory Jadaendy Rene Other [facility] Other Start: 08-26-2023 Telephone encounter Jada Rene [facility] [place] Start: 08-08-2023 End: 08-08-2023 ambulatory Jadaendy Rene Other [facility] Other Start: 08-08-2023 Telephone encounter Jada Rene [facility] [place] Start: 07-27-2023 End: 07-27-2023 ambulatory Jada Rene Other [facility] Other Start: 07-27-2023 Telephone encounter Jada Rene [facility] [place] Start: 06-16-2023 End: 06-16-2023 ambulatory Jada Rene Other [facility] Other Start: 06-16-2023 Office outpatient ne w 45 minutes Jada Rene [facility] [place] Start: 06-16-2023 Telephone encounter Jada Rene [facility] [place] Procedures Date Procedure Procedure Detail Performing Clinician Start: 07-22-2025 Complete blood count with white cell differential, automated Win Santillan DO Work Phone: Start: 07-21-2025 C-reactive protein Win Santillan DO Work Phone: Start: 06-23-2025 Electrolyte panel Toy Baez MD Work Phone: Start: 06-23-2025 Basic metabolic pane l calcium total Rocio Ryan MD Work Phone: Start: 06-22-2025 Electrolyte panel [...] any combination ph [id number] [id number] co2 hco3 Erika Crisostomo MD Work Phone: Start: 06-21-2025 Electrolyte panel Royal Davis MD Work Phone: Start: 06-21-2025 Basic metabolic pane l calcium total Jose Miguel Maria MD Work Phone: Start: 06-20-2025 EXTRA TUBES Bryanad Joey vanegas MD Work Phone: Start: 06-20-2025 [...] r-t 2d w/wom-mode compl spec&colr d Rocio aDvis MD Work Phone: Start: 06-19-2025 Duplex scan [...] Phone: Start: 06-18-2025 EXTRA TUBES PST TOP Alicia Carranza MD Work Phone: Start: 06-18-2025 Assay of osmolality [...] Work Phone: Start: 06-04-2025 Electrolyte panel Rolf hays Wayland DO Work Phone: Start: 06-04-2025 Glucose blood [...] Work Phone: Start: 06-04-2025 ELECTROLYTES PLUS Rolf hays Floridalma DO Work Phone: Start: 06-04-2025 Gluc bld [...] TO MG FOR LOW K Adore Cueto STUDENT OUTREACH COORDINATOR - VISITOR SERVICES TECHNICIAN Work Phone: Start: 06-03-2025 End: 06-04-2025 Prothrombin time Adore Cueto STUDENT OUTREACH COORDINATOR - VISITOR SERVICES TECHNICIAN Work Phone: Start: 06-02-2025 Glucose blood reagen t strip Brigida Pina DO Work Phone: Start: 06-02-2025 Glucose blood reagen t strip Brigida Matap DO Work Phone: Start: 06-02-2025 BASIC METABOLIC PANE L W/ REFLEX TO MG FOR LOW K Leelee Easley STUDENT OUTREACH COORDINATOR - GARAGE DOOR SERVICE TECHNICIAN Work Phone: Start: 06-02-2025 End: 06-02-2025 Prothrombin time Leelee Easley STUDENT OUTREACH COORDINATOR - GARAGE DOOR SERVICE TECHNICIAN Work Phone: Start: 11-19-2024 [facility] CAPILLARY GLUCO SE POC Axel Hernández DO Work Phone: Start: 11-19-2024 Decompression of med carlos nerve Axel Hernández Start: 03-26-2024 Decompression of med carlos nerve Axel Hernández Decompression of med carlos nerve Axel Hernández 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 Status post carpal tunnel release Jose L Chow VISITOR SERVICES TECHNICIAN Work Phone: Release of trigger finger Mi jacquie Hernández Surgery (qualifier value) Sa fariha Garcia Plan of Treatment Date Care Activity Detail Author Start: 06-05-2026 GFR test (Diabetes, CKD 3-4, OR last GFR 15-59) GFR test (Diabetes, CKD 3-4, OR last GFR 15-59) [facility] Start: 07-23-2025 [facility] Start: 07-22-2025 Referral to urologist [facility] Start: 07-20-2025 Administration of prophylactic treatment [facility] Start: 07-20-2025 Referral to general surgeon [facility] Start: 07-19-2025 Hospital admission [facility] Start: 07-19-2025 Referral to infectio us diseases physician [facility] Start: 07-19-2025 [facility] Start: 07-15-2025 Influenza vaccination Influenza Vacc ine (#1) [facility] Start: 06-14-2025 Influenza vaccination Flu vaccine (# 1) [facility] Start: 06-12-2025 End: 06-05-2026 Basic metabolic 2000 panel - Serum or Plasma Basic Metabolic Panel Lab Routine Hyponatremia Expected: 06/12/2025, Expires: 06/05/2026 [facility] Comment on above: Expected: 06/12/2025 , Expires: 06/05/2026 Start: 03-29-2025 COVID-19 Vaccine ( season) COVID-19 Vaccine ( season) [facility] Start: 12-26-2024 End: 12-26-2024 Patient encounter procedure 12/26/2024 1:45 PM EST Office Visit [facility] [address] [place] [address] Jose L Chow, VISITOR SERVICES TECHNICIAN [address] [place] [address] [facility] Start: 11-28-2024 End: 11-28-[address] [facility] Comment on above: Arrived Start: 11-26-2024 End: 11-26-2024 Patient encounter procedure 11/26/2024 10:30 AM EST Office Visit [facility] [address] [place] [address] Emiliano Escamilla MD [address] [facility] [address] [place] [address] Arrived [facility] Comment on above: Arrived Start: 11-14-2024 Annual Wellness Visi t (Medicare Advantage) Annual Wellness Visit (Medicare Advantage) [facility] Start: 10-03-2024 End: 10-03-2025 ECG 12 lead ECG 12 lead ECG Routine Pre-op testing Expected: 10/03/2024 (Approximate), Expires: 10/03/2025 [facility] Work Phone: Comment on above: Expected: 10/03/2024 (Approximate), Expires: 10/03/2025 Start: 10-03-2024 End: 10-03-2024 Patient encounter procedure 10/03/2024 10:45 AM EST Office Visit [facility] [address] [place] [address] Axel Hernández, [address] [place] [address] Right hand pain (Primary Dx); Arm weakness [facility] Comment on above: Right hand pain (Holly ayaan Dx); Arm weakness Start: 07-15-2024 Influenza vaccination Influenza Vacc ine (#1) [facility] Start: 07-15-2023 Influenza vaccination Influenza Vacc ine (#1) [facility] Start: 11-14-2022 Advance Directive Discussion Advance Directive Discussion [facility] Start: 11-14-2022 Depression Assessment Depression Ass essment [facility] Start: 2017 Respiratory Syncytia l Virus (RSV) or age 60 yrs+ (1 - 1-dose 75+ series) Respiratory Syncytial Virus (RSV) or age 60 yrs+ (1 - 1-dose 75+ series) [facility] Start: 03-31-2016 Pneumococcal Vaccine : 65+ (2 - PPSV23 or PCV20) Pneumococcal Vaccine: 65+ (2 - PPSV23 or PCV20) [facility] Start: 03-31-2016 Pneumococcal Vaccine : 65+ Years (2 of 2 - PPSV23 or PCV20) Pneumococcal Vaccine: 65+ Years (2 of 2 - PPSV23 or PCV20) [facility] Start: 03-24-2016 Hepatitis B surface antibody level LDL Cholesterol [facility] Start: 09-24-2015 Hemoglobin A1c/Hemoglobin.total in Blood HbA1C [facility] Start: 08-01-2015 3 comp foot exam completed Diabetic Foot Exam [facility] Start: 07-25-2015 Hepatitis B screening Urine Albumin:Creatinine Ratio [facility] Start: 02-01-2015 Urine microalbumin profile DTaP,Tdap,Td Vaccine (1 - Tdap) [facility] Start: 10-24-2013 Shingles vaccine (2 of 3) Keyes gles vaccine (2 of 3) [facility] Start: 10-24-2013 Shingrix Vaccine (2 of 3) Keyes grix Vaccine (2 of 3) [facility] Start: 09-14-2012 Hepatitis C antibody , confirmatory test Dilated Retinal Exam [facility] Start: 2002 RSV Vaccine (1 - 1-d ose 60+ series) RSV Vaccine (1 - 1-dose 60+ series) [facility] Start: 1961 DTaP/Tdap/Td vaccine (1 - Tdap) DTaP/Tdap/Td vaccine (1 - Tdap) [facility] Start: 1960 Urine screening for protein Diabetic Alb to Cr ratio (uACR) test [facility] Start: 1954 Depression Screen Depression Screen [facility] Start: 1952 Lipid panel Lipids [facility] Start: 1942 Covid-19 Vaccine (#1) Covid-19 Vacci ne (#1) [facility] End: 06-19-2025 Baseline Routine EEG Baseline Routine EEG Neurology Routine Once for 1 Occurrences starting 06/19/2025 until 06/19/2025 [employer] Comment on above: Once for 1 Occurrenc es starting 06/19/2025 until 06/19/2025 End: 06-13-2025 Basic metabolic 2000 panel - Serum or Plasma Basic Metabolic Panel Lab Routine Tomorrow AM for 10 Occurrences starting 06/04/2025 until 06/13/2025, 1 completed [employer] Comment on above: Tomorrow AM for 10 O ccurrences starting 06/04/2025 until 06/13/2025, 1 completed Basic metabolic 2000 panel - Serum or Plasma Basic Metabolic Panel Lab Routine Lab max of 3 days, Daily, for lab use only until discontinued starting 06/18/2025, 6 completed [employer] Comment on above: Lab max of 3 days, D aily, for lab use only until discontinued starting 06/18/2025, 6 completed End: 06-25-2025 Blood count hemoglobin Hemoglobin Lab Routine Every Other Day for 3 Days starting 06/23/2025 until 06/25/2025 [employer] Comment on above: Every Other Day for 3 Days starting 06/23/2025 until 06/25/2025 CBC W Auto Different ial panel - Blood CBC auto differential Lab Routine Lab max of 3 days, Daily, for lab use only until discontinued starting 06/17/2025, 7 completed [employer] Comment on above: Lab max of 3 days, D aily, for lab use only until discontinued starting 06/17/2025, 7 completed Continuous pulse oximetry Pulse oximetry, continuous Respiratory Care Routine Every 4hr until discontinued starting 06/02/2025 [employer] Comment on above: Every 4hr until disc ontinued starting 06/02/2025 End: 06-08-2025 Electrolyte Panel Electrolyte Panel Lab Routine Every 8 Hours (Lab) for 3 Days starting 06/05/2025 until 06/08/2025, 1 completed [employer] Work Phone: Comment on above: Every 8 Hours (Lab) for 3 Days starting 06/05/2025 until 06/08/2025, 1 completed End: 06-25-2025 Electrolyte panel Electrolyte panel Lab Routine Lab max of 3 days, Every 8hr, lab use only for 3 Days starting 06/22/2025 until 06/25/2025, 2 completed [employer] Work Phone: Comment on above: Lab max of 3 days, E very 8hr, lab use only for 3 Days starting 06/22/2025 until 06/25/2025, 2 completed Glucose [Mass/volume ] in Serum or Plasma [employer] Comment on above: As Needed until disc ontinued starting 06/02/2025 4X Daily (AC & HS) u ntil discontinued starting 06/02/2025 End: 06-23-2025 Holter monitor study EEG Video Monitoring Daily Neurology Routine Lab max of 3 days, Daily, for lab use only for 5 Occurrences starting 06/19/2025 until 06/23/2025, 1 completed [employer] Comment on above: Lab max of 3 days, D aily, for lab use only for 5 Occurrences starting 06/19/2025 until 06/23/2025, 1 completed Holter monitor study EEG Video M onitoring Daily Neurology Routine 06/20/2025 6:06 PM EDT [employer] Magnesium [Mass/volu me] in Serum or Plasma Magnesium Lab Routine Lab max of 3 days, Daily, for lab use only until discontinued starting 06/23/2025, 1 completed [employer] Comment on above: Lab max of 3 days, D aily, for lab use only until discontinued starting 06/23/2025, 1 completed End: 06-23-2025 Magnesium [Mass/volume] in Serum or Plasma Magnesium Lab Routine Once for 1 Occurrences starting 06/23/2025 until 06/23/2025 [employer] Work Phone: Comment on above: Once for 1 Occurrenc es starting 06/23/2025 until 06/23/2025 Nasal Cannula Oxygen Nasal Cannu la Oxygen Respiratory Care Routine Daily until discontinued starting 06/05/2025 [facility] Comment on above: Daily until disconti nued starting 06/05/2025 Oxygen Therapy - Carly ntain SpO2: 90%; *FASHION BU[employer]ER Guidelines for O2: Yes; Document: \[email or web address]\epic \EPIC_Reference\Orders\Re spiratory Care Guidelines\CPG Oxygen 2022.pdf Oxygen Therapy - Maintain SpO2: 90%; *FASHION BUYER Guidelines for O2: Yes; Document: \[email or web address]\e pic\EPIC_Reference\Ord ers\Respiratory Care Guidelines\CPG Oxygen 2022.pdf Respiratory Care Routine As Needed until discontinued starting 06/17/2025 [employer] Work Phone: Comment on above: As Needed until disc ontinued starting 06/17/2025 Oxygen therapy [[facility] Data Set] Initiate Oxygen Therapy Protocol Respiratory Care Routine As Needed until discontinued starting 06/02/2025 [employer] Work Phone: Comment on above: As Needed until disc ontinued starting 06/02/2025 Patient Education Low-fiber diet Know your Meds [facility] Work Phone: Patient referral [facility] Work Phone: End: 06-24-2025 Platelets [#/volume] in Blood Platelet count Lab Routine Every Third Day for 3 Days starting 06/24/2025 until 06/24/2025 [employer] Comment on above: Every Third Day for 3 Days starting 06/24/2025 until 06/24/2025 Protime & INR Protime & INR La b Routine Daily until discontinued starting 06/19/2025, 4 completed [employer] Comment on above: Daily until disconti nued starting 06/19/2025, 4 completed End: 06-12-2025 Protime-INR Protime-INR Lab Routine Daily for 8 Days starting 06/05/2025 until 06/12/2025, 1 completed [employer] Comment on above: Daily for 8 Days sta rting 06/05/2025 until 06/12/2025, 1 completed End: 06-02-2025 Respiratory care evaluation only Respiratory care evaluation only Respiratory Care Routine One Time for 1 Occurrences starting 06/02/2025 until 06/02/2025 [employer] Comment on above: One Time for 1 Occur rences starting 06/02/2025 until 06/02/2025 Govind gagnon Immunizations Immunization Date Immunization Notes Care Provider Sandrita escobar 09-29-2024 influenza, high dose seasonal, preservative-free Erika Crisostomo MD Work Phone: [facility] 09-29-2024 influenza virus vaccine, unspecified formulation Axel Hernández DO Work Phone: [facility] 09-21-2023 Prevnar 20 Jada Edgard Other [facility] 08-19-2023 Covid-19, Mrna, Lnp- s, Pf,brigette-sucrose,30 Mcg/0.3ml Seasonal Erika Crisostomo MD Work Phone: [facility] 08-19-2023 Flu Shot - Documentation Purposes Only Jadaendy Rene Other [employer] Other 08-19-2023 influenza virus vaccine, unspecified formulation Edwin Garcia [facility] 08-14-2022 influenza, seasonal, injectable Jada Edgard Other [facility] 03-31-2021 Influenza, High-dose , Quadrivalent Erika Crisostomo MD Work Phone: [facility] 03-31-2015 pneumococcal conjuga te vaccine, 13 valent Jada Rene Other [facility] 08-02-2014 influenza, high dose seasonal, preservative-free Venessa Riggins RN [facility] 08-02-2014 influenza virus vaccine, unspecified formulation Venessa Riggins RN [facility] 08-29-2013 zoster vaccine, live Venessa terrell RN [facility] 08-09-2013 influenza virus vaccine, unspecified formulation Venessa Riggins RN [facility] 07-31-2012 influenza virus vaccine, unspecified formulation Venessa Riggins RN [facility] Work Phone: 03-07-2012 TD(adult) unspecifie d formulation Erika Crisostomo MD Work Phone: [facility] 03-07-2012 tetanus and diphther ia toxoids, adsorbed, preservative free, for adult use (2 Lf of tetanus toxoid and 2 Lf of diphtheria toxoid) Venessa Riggins RN [facility] Work Phone: 08-07-2011 influenza virus vaccine, unspecified formulation Venessa Riggins RN [facility] Work Phone: NEGATED: Highlighted row has not occurred!08-28-2024 influenza virus vaccine, unspecified formulation Davie Vargas [facility] [place] Payers Date Payer Category Payer Self-pay 2025 Private Health Insurance [id number] 2025 Medicaid [employer] MEDICARE A DVANTAGE [id number] 2025 Medicare HMO [employer] MEDICARE [id number] 2025 Private Health Insurance [facility] [id number] 2023 Medicare (Managed Care) [employer] [id number] 2023 Unknown MadeiraMadeira D [facility] NBO TV [id number] 2023-Present [address] [place] [address] [id number]. [id number] 2023 Unknown [id number] 2.16.840.1.485974.19 2023 Medicare [id number] [id number]. [id number] 1942 Unknown [id number] 2.16.840.1.284998.3.579.2. 196 1942 Unknown [id number] 2.16.840.1.456161.3.579.2. 727 1942 Unknown [id number] 2.16.840.1.546247.3.579.2. 727 1942 Unknown [id number] 2.16.840.1.763010.3.579.2. 727 1942 Unknown [id number] 2.16.840.1.321880.3.579.2. 727 1942 Unknown [id number] 2.16.840.1.643459.3.579.2. 1259 1942 Unknown [id number] 2.16.840.1.189777.3.579.2. 125 1942 Unknown [id number] 2.16.840.1.270078.3.579.2. 1258 1942 Unknown [id number] 2.16.840.1.940716.3.579.2. 1258 1942 Unknown [id number] 2.16.840.1.046957.3.579.2. 1258 1942 Unknown [id number] 2.16.840.1.215461.3.579.2. 1258 1942 Unknown [id number] 2.16.840.1.726058.3.579.2. 1258 1942 Unknown [id number] 2.16.840.1.534773.3.579.2. 1258 1942 Unknown [id number] 2.16.840.1.944490.3.579.2. 1258 1942 Unknown [id number] 2.16.840.1.811632.3.579.2. 1942 Unknown [id number] 2.16.840.1.962204.3.579.2. 1942 Unknown [id number] 2.16.840.1.514594.3.579.2. 1942 Unknown [id number] 2.16.840.1.320839.3.579.2. 1942 Unknown [id number] 2.16.840.1.434847.3.579.2. 1942 Unknown [id number] 2.16.840.1.182211.3.579.2. 1942 Unknown [id number] 2.16.840.1.711754.3.579.2. 1942 Unknown [id number] 2.16.840.1.428748.3.579.2. 1942 Unknown [id number] 2.16.840.1.865775.3.579.2. 727 1942 Unknown [id number] 2.16.840.1.968273.3.579.2. 1942 Unknown [id number] 2.16.840.1.561091.3.579.2. 72 1942 Unknown [id number] 2.16.840.1.792329.3.579.2. 1942 Unknown [id number] 2.16.840.1.559002.3.579.2. 1942 Unknown [id number] 2.16.840.1.975715.3.579.2. 1942 Unknown [id number] 2.16.840.1.239318.3.579.2. 1942 Unknown [id number] 2.16.840.1.310248.3.579.2. 1942 Unknown [id number] 2.16.840.1.540609.3.579.2. 1942 Unknown [id number] 2.16.840.1.452597.3.579.2. 175 1942 Unknown [id number] 2.16.840.1.403843.3.579.2. 1942 Unknown [id number] 2.16.840.1.575004.3.579.2. 1942 Unknown [id number] 2.16.840.1.473775.3.579.2. 1942 Unknown [id number] 2.16.840.1.861554.3.579.2. 1942 Unknown [id number] 2.16.840.1.301533.3.579.2. 72 1942 Unknown [id number] 2.16.840.1.644957.3.579.2 1942 Unknown [id number] 2.16.840.1.984644.3.579.2. 1942 Unknown [id number] 2.16.840.1.997821.3.579.2. 1942 Unknown [id number] 2.16.840.1.361863.3.579.2. 1942 Unknown [id number] 2.16.840.1.871269.3.579.2. 1942 Unknown [id number] 2.16.840.1.316474.3.579.2. 1942 Unknown [id number] 2.16.840.1.153540.3.579.2. 1942 Unknown [id number] 2.16.840.1.598376.3.579.2. 1942 Unknown [id number] 2.16.840.1.888674.3.579.2. 1942 Unknown [id number] 2.16.840.1.679884.3.579.2. 1942 Unknown [id number] 2.16.840.1.796167.3.579.2. 1942 Unknown [id number] 2.16.840.1.117328.3.579.2. 1942 Unknown [id number] 2.16.840.1.506192.3.579.2. 1942 Unknown [id number] 2.16.840.1.377764.3.579.2. 1942 Unknown [id number] 2.16.840.1.253560.3.579.2. 1942 Unknown [id number] 2.16.840.1.580335.3.579.2. 1942 Unknown [id number] 2.16.840.1.502859.3.579.2. 727 1942 Unknown [id number] 2.16.840.1.156032.3.579.2. 727 1942 Unknown [id number] 2.16.840.1.534956.3.579.2. 727 1942 Unknown [id number] 2.16.840.1.431621.3.579.2. 727 Medicare [id number] 2.16.840.1.798610.19 Medicare [id number] 2.16.840.1.625103.19 Unknown [id number] 2.840.1.897990.3.579.2. 531 Social History Date Type Detail Facility Start: 06-20-2024 End: 11-28-2024 Sex Assigned At [facility] Start: 12-01-2023 End: 07-22-2025 Tobacco smoking status COIS Never smoked tobacco [facility] Comment on above: denies use. Start: 06-28-2022 Alcohol intake Current drinke r of alcohol (finding) [facility] Start: 06-28-2022 End: 11-28-2024 Alcohol intake [facility] Start: 1940 Sex Assigned At Not on file [facility] Tobacco smoking status Never [facility] [place] Comment on above: denies use. Start: 02-15-2024 End: 06-17-2025 Tobacco use and exposure Smokeless tobacco non-user [facility] Sexual Orientation [facility] Start: 03-27-2015 End: 08-22-2023 Sex Male (finding) [facility] Start: 06-02-2025 Alcoholic beverage intake Lifetime non-drinker (finding) [employer] Has the [employer], [employer], or [employer] threatened to shut off services in your home in past 12Mo No [employer] (I/We) worried mary er (my/our) food would run out before (I/we) got money to buy more. Never true [place] Start: 06-17-2025 Alcoholic beverage intake Ex-drinker (finding) [facility] How often to you hav e a drink containing alcohol? Never [facility] Start: 1940 Sex Assigned At Male F [facility] Start: 07-22-2025 SDOH Follow up SDOH Follow up [facility] Work Phone: Medical Equipment Procedure Code Equipment Code Equipment [...] Evaluation of progress towards goal: Home with [facility] Functional Status Date Assessment Result Facility 06-17-2025 Total score [AUDIT-C] 0 06/17/20 25 4:54 PM EDT Monico Cuellar, ERIN [facility] 10-30-2024 Functional Status No [facility] 08-28-2024 Functional Status N/A [facility] [place] 06-11-2024 Functional Status N/A [facility] 05-30-2024 Functional Status No [facility] 04-20-2024 Functional Status N/A [facility] 03-06-2024 Functional Status No [facility] Mental Status Date Assessment Result [facility] Clinical Notes 03-10-2010 to 07-25-2025 Note Date & Type Note Facility 07-25-2025 Note Patient Education Infectious Disease Sepsis, Diagnosis, Adult Sepsis is a serious bodily reaction to an infection. The infection that triggers sepsis may be from a bacteria, virus, or fungus. Sepsis can result from an infection in any part of your body. Infections that commonly lead to sepsis include skin, lung, and urinary tract infections. Sepsis is a medical emergency that must be treated right away in a hospital. In severe cases, it can lead to septic shock. Septic shock can weaken your heart and cause your blood pressure to drop. This can cause your central nervous system and your body's organs to stop working. What are the causes? This condition is caused by a severe reaction to infections from bacteria, viruses, or fungus. The germs that most often lead to sepsis include: ??? Escherichia coli (E. coli) bacteria. ??? Staphylococcus aureus (staph) bacteria. ??? Some types of Streptococcus bacteria. The most common infections affect these organs: ??? The lung (pneumonia). ??? The kidneys or bladder (urinary tract infection). ??? The skin (cellulitis). ??? The bowel, gallbladder, or pancreas. What increases the risk? You are more likely to develop this condition if: ??? Your body's disease-fighting system (immune system) is weakened. ??? You are age 65 or older. ??? You are male. ??? You had surgery or you have been hospitalized. ??? You have these devices inserted into your body: ? A small, thin tube (catheter). ? IV line. ? Breathing tube. ? Drainage tube. ??? You are not getting enough nutrients from food (malnourished). ??? You have a chronic disease, such as cancer, lung disease, kidney disease, or diabetes. What are the signs or symptoms? Symptoms of this condition may include: ??? Fever. ??? Chills or feeling very cold. ??? Confusion or anxiety. ??? Fatigue. ??? Muscle aches. ??? Shortness of breath or rapid breathing (hyperventilation). ??? Nausea and vomiting. ??? Urinating much less than usual. ??? Fast heart rate. ??? Changes in skin color. Your skin may look blotchy, pale, or blue. ??? Cool, clammy, or sweaty skin. ??? Skin rash. Other symptoms depend on the source of your infection. How is this diagnosed? This condition is diagnosed based on your symptoms, medical history, and physical exam. Other tests may also be done to find out the cause of the infection and how severe the sepsis is. Tests may include: ??? Blood tests. ??? Urine tests. ??? Swabs from other areas of your body that may have an infection. These samples may be tested (cultured) to find out what type of bacteria is causing the infection. ??? Chest X-ray to check for pneumonia. Other imaging tests, such as a CT scan, may also be done. ??? Lumbar puncture. This removes a small amount of the fluid that surrounds your brain and spinal cord. The fluid is then examined for infection. How is this treated? This condition must be treated in a hospital. Based on the cause of your infection, you may be given an antibiotic, antiviral, or antifungal medicine. You may also receive: ??? Fluids through an IV. ??? Oxygen and breathing assistance. ??? Medicines to increase your blood pressure. ??? Kidney dialysis. This process cleans your blood if your kidneys have failed. ??? Surgery to remove infected tissue. ??? Blood transfusion if needed. ??? Medicine to prevent blood clots. ??? Nutrients to correct imbalances in basic body function (metabolism). You may: ? Receive important salts and minerals (electrolytes) through an IV. ? Have your blood sugar level adjusted. Follow these instructions at home: Medicines ??? Take fexj-bkh-swyyisw and prescription medicines only as told by your health care provider. ??? If you were prescribed an antibiotic, antiviral, or antifungal medicine, take it as told by your health care provider. Do not stop taking the medicine even if you start to feel better. General instructions ??? If you have a catheter or other indwelling device, ask to have it removed as soon as possible. ??? Keep all follow-up visits. This is important. Contact a health care provider if: ??? You do not feel like you are getting better or regaining strength. ??? You are having trouble coping with your recovery. ??? You frequently feel tired. ??? You feel worse or do not seem to get better after surgery. ??? You think you may have an infection after surgery. Get help right away if: ??? You have any symptoms of sepsis. ??? You have difficulty breathing. ??? You have a rapid or skipping heartbeat. ??? You become confused or disoriented. ??? You have a high fever. ??? Your skin becomes blotchy, pale, or blue. ??? You have an infection that is getting worse or not getting better. These symptoms may represent a serious problem that is an emergency. Do not wait to see if the symptoms will go away. Get medica (more content not included)... 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 You can help to prevent a stroke by eating healthy foods and exercising. It also helps to not smoke and to manageany health problems you may have. How can [...] ? Biking. ? Swimming. Medicines ??? Take rctl-hyz-rapbwmr and prescription medicines only as told by your doctor. ??? Avoid taking control pills. Talk to your doctor about the risks of taking control pills if: ? You are over 35 years old. ? You smoke. ? You get very bad headaches. ? You have had a blood clot. Where to find more information ??? [place] Stroke Association: www.strokeassociation.org Get help right away [...] what people say. ? (more content not included)...[facility]08-21-2025 Note Patient Education Nephrology Hyponatremia Hyponatremia is [...] Follow these instructions at home: ??? Take jzca-lfd-lrqiahi and prescription medicines only as told by [...] provider. Document Revised: 05/11/2022 Document Reviewed: 05/11/2022 [employer] Patient Education ? 2023 [email or web address] 06-23-2025 Nurse Note* Debra Huggins RN - 06/23/2025 3:01 PM EDT [facility] Report called and questions addressed. PIV and tele discontinued. All personal belongings packed and left with patient. Report given to transport as well. No other concerns at this time. Left on stretcher [facility]08-10-2025 Nurse Note* Debra Huggins RN - 06/23/2025 3:01 PM EDT [facility] discharged to [facility] at this time. Report called and questions addressed. PIV and tele discontinued. All personal belongings packed and left with patient. Report given to transport as well. No other concerns at this time. Left on stretcher * Lauren Gaona RN - 06/21/2025 1:[address] Crisostomo, restart the heparin drip at this time, CTB negative. Restart at prior rate. Recheck antixa in 6 hours. * Lauren Gaona RN - 06/21/2025 9:27 AM EDT In chair, alert and responding. BP 98/65. Dr Crisostomo returns page and updated on events. * Lauren Gaona RN - 06/21/2025 9:22 AM EDT Working with physical and occupational therapy. Ambulated to bathroom, had been alert and conversing, suddenly became unresponsive, staring and leaning to left. Resolved after 2-3 minutes, then more alert and was able to state name. Assisted to chair. Dr Kranthi gay. * Deepali Mathew RN - 06/19/2025 10:55 AM EDT RN concerned as patient is extremely drowsy not following commands or speaking, RN called neuro resident Dr. Davis who states she thinks patient is just tired and will re assess later. * Lauren Gaona RN - 06/18/2025 6:26 PM EDT Patient confused, on heparin drip, constantly trying to get out of bed, hitting, kicking and tryingto bite staff. Unable to follow direction. Dr Davis notified, says will order seroquel. Notified ofQT from EKG done 06/17 at [place]. [facility] Plan of care note * Plan of Care - Debra Huggins RN - 06/23/2025 11:02 AM EDT Problem: Pain Goal: Patient goal is pain score less than 4, able to rest, and participant in treatment plan as appropriate Description: INTERVENTIONS: 1. Encourage patient or legal representative personal service to report early pain and ask for [...] per policy 9. Teach patient or legal representative personal service interventions for comforting Outcome: Adequate for Discharge [...] at the bedside 7. Instruct patient/ patient representative personal service about use of safety devices 8. Include patient/ patient representative personal service in decisions related to safety Outcome: Adequate [...] hygiene technique. 7. Identify and instruct patient/patient representative personal service in use of appropriate isolation precautionsfor identified infection/symptoms. 8. Provide and discuss with patient/patient representative personal service on educational MDRO sheet. 9. Encourage and monitor nutritional status daily and consult field return repairer if indicated. 10. Implement neutropenic guidelines as needed. Outcome: Adequate for Discharge Problem: Knowledge Deficit Goal: Patient/patient representative personal service demonstrates understanding of disease process, treatment plan,medications, and discharge instructions Description: INTERVENTIONS 1. Complete [...] supplement as ordered 13. Collaborate with clinical field return repairer 14. Include patient/ patient's representative personal service in decisions related to nutrition Outcome: Adequate [...] of consciousness, motor function, sensory function, and levelof assistance needed for ADLs 4. Monitor and [...] and report duration and description of seizure toLIP 10. If seizure occurs, turn patient to [...] develop effective communication strategies 4. Include patient/patient representative personal service in decisions related to communication Outcome: Adequate [...] anxiety both physical and emotional (heart palpitations, chestpain, shortness of breath, headaches, nausea, feeling jumpy, [...] Collaborate with ancillary departments 14. Include patient/patient representative personal service in decisions related to anxiety Outcome: Adequate [...] providing care 6. Collaborate with pastoral/spiritual care, director of social services, mental health counselor as needed. 7. Instruct patient on diversional activities such as physical activity, distraction, and deep breathing exercises to assist with coping 8. Involve patient's representative personal service in care Outcome: Adequate for Discharge Problem: [...] indicated by [facility] Assessment Goal: Patient should be free from fall Description: Interventions: 1. [place] to environment 2. Hourly rounds addressing the [...] non-skid footwear 11. Teach patient and patient representative personal service to maintain environment for safety and engage [...] (cane, walker) within reach 19. Request patient representative personal service bring adaptive equipment/mobility aids from home or obtain and provide as needed 20. Consult pharmacy regarding effects of med's affecting mobility, cognition, and alternatives 21. Obtain physician order for PT if risk factors associated with mobility are present 22. Obtain physician order for OT as appropriate 23. Utilize diversional activities 24. Educate patient and patient representative personal service how to maintain a safe environment during visitationtimes (notify nurse prior to leaving bedside) 25. Consider appropriateness of medical or non-medical radiation tech 26. Set up voiding schedule as appropriate (every 2 hours) Outcome: Adequate for Discharge [facility]08[facility] Miscellaneous Notes* Plan of Care - Debra Huggins RN - 06/23/2025 11:02 AM EDT Problem: Pain Goal: Patient goal is pain score less than 4, able to rest, and participant in treatment plan as appropriate Description: INTERVENTIONS: 1. Encourage patient or legal representative personal service to report early pain and ask for [...] per policy 9. Teach patient or legal representative personal service interventions for comforting Outcome: Adequate for Discharge [...] at the bedside 7. Instruct patient/ patient representative personal service about use of safety devices 8. Include patient/ patient representative personal service in decisions related to safety Outcome: Adequate [...] hygiene technique. 7. Identify and instruct patient/patient representative personal service in use of appropriate isolation precautionsfor identified infection/symptoms. 8. Provide and discuss with patient/patient representative personal service on educational MDRO sheet. 9. Encourage and monitor nutritional status daily and consult field return repairer if indicated. 10. Implement neutropenic guidelines as needed. Outcome: Adequate for Discharge Problem: Knowledge Deficit Goal: Patient/patient representative personal service demonstrates understanding of disease process, treatment plan,medications, and discharge instructions Description: INTERVENTIONS 1. Complete [...] supplement as ordered 13. Collaborate with clinical field return repairer 14. Include patient/ patient's representative personal service in decisions related to nutrition Outcome: Adequate [...] of consciousness, motor function, sensory function, and levelof assistance needed for ADLs 4. Monitor and [...] and report duration and description of seizure toLIP 10. If seizure occurs, turn patient to [...] develop effective communication strategies 4. Include patient/patient representative personal service in decisions related to communication Outcome: Adequate [...] anxiety both physical and emotional (heart palpitations, chestpain, shortness of breath, headaches, nausea, feeling jumpy, [...] Collaborate with ancillary departments 14. Include patient/patient representative personal service in decisions related to anxiety Outcome: Adequate [...] providing care 6. Collaborate with pastoral/spiritual care, director of social services, mental health counselor as needed. 7. Instruct patient on diversional activities such as physical activity, distraction, and deep breathing exercises to assist with coping 8. Involve patient's representative personal service in care Outcome: Adequate for Discharge Problem: [...] indicated by [facility] Assessment Goal: Patient should be free from fall Description: Interventions: 1. [place] to environment 2. Hourly rounds addressing the [...] non-skid footwear 11. Teach patient and patient representative personal service to maintain environment for safety and engage [...] (cane, walker) within reach 19. Request patient representative personal service bring adaptive equipment/mobility aids from home or obtain and provide as needed 20. Consult pharmacy regarding effects of med's affecting mobility, cognition, and alternatives 21. Obtain physician order for PT if risk factors associated with mobility are present 22. Obtain physician order for OT as appropriate 23. Utilize diversional activities 24. Educate patient and patient representative personal service how to maintain a safe environment during visitationtimes (notify nurse prior to leaving bedside) 25. Consider appropriateness of medical or non-medical radiation tech 26. Set up voiding schedule as appropriate (every 2 hours) Outcome: Adequate for Discharge * Discharge Planning Note - Hellen Brady - 06/23/2025 10:54 AM EDT DISCHARGE PLANNING NOTE BLS via PTN scheduled for today 06/23/25 at 1 PM to [facility]. Confirmed in [place]. * Discharge Planning Note - CHARLES Lee - 06/23/2025 10:39 AM EDT DISCHARGE PLANNING NOTE Discharge written, CRF complete. Social work task [facility] to arrange BLS transport- wait confirmed time. [facility] notified of discharge and CRF sent. HENS submitted. is aware and agreeable to transition plan. RN updated. - CHARLES LEE 06/23/25 10:42 AM * Plan of Care - Yonathan Joy RN - 06/23/2025 6:29 AM EDT Problem: Pain Goal: Patient goal is pain score less than 4, able to rest, and participant in treatment plan as appropriate Description: INTERVENTIONS: 1. Encourage patient or legal representative personal service to report early pain and ask for [...] per policy 9. Teach patient or legal representative personal service interventions for comforting 06/23/[id number] by ERIN Mcmanus Outcome: Progressing Note: Evaluation of progress towards goal: 06/23/[id number] by ERIN Mcmanus Outcome: Progressing Note: Evaluation [...] at the bedside 7. Instruct patient/ patient representative personal service about use of safety devices 8. Include patient/ patient representative personal service in decisions related to safety Outcome: Progressing [...] hygiene technique. 7. Identify and instruct patient/patient representative personal service in use of appropriate isolation precautionsfor identified infection/symptoms. 8. Provide and discuss with patient/patient representative personal service on educational MDRO sheet. 9. Encourage and monitor nutritional status daily and consult field return repairer if indicated. 10. Implement neutropenic guidelines as needed. Outcome: Progressing Note: Evaluation of progress towards goal: Standard precaution maintained Problem: Knowledge Deficit Goal: Patient/patient representative personal service demonstrates understanding of disease process, treatment plan,medications, and discharge instructions Description: INTERVENTIONS 1. Complete [...] supplement as ordered 13. Collaborate with clinical field return repairer 14. Include patient/ patient's representative personal service in decisions related to nutrition Outcome: Progressing [...] of consciousness, motor function, sensory function, and levelof assistance needed for ADLs 4. Monitor and [...] and report duration and description of seizure toLIP 10. If seizure occurs, turn patient to [...] develop effective communication strategies 4. Include patient/patient representative personal service in decisions related to communication Outcome: Progressing [...] anxiety both physical and emotional (heart palpitations, chestpain, shortness of breath, headaches, nausea, feeling jumpy, [...] Collaborate with ancillary departments 14. Include patient/patient representative personal service in decisions related to anxiety Outcome: Progressing [...] providing care 6. Collaborate with pastoral/spiritual care, director of social services, mental health counselor as needed. 7. Instruct patient on diversional activities such as physical activity, distraction, and deep breathing exercises to assist with coping 8. Involve patient's representative personal service in care Outcome: Progressing Note: Evaluation of [...] indicated by [facility] Assessment Goal: Patient should be free from fall Description: Interventions: 1. [place] to environment 2. Hourly rounds addressing the [...] non-skid footwear 11. Teach patient and patient representative personal service to maintain environment for safety and engage [...] (cane, walker) within reach 19. Request patient representative personal service bring adaptive equipment/mobility aids from home or obtain and provide as needed 20. Consult pharmacy regarding effects of med's affecting mobility, cognition, and alternatives 21. Obtain physician order for PT if risk factors associated with mobility are present 22. Obtain physician order for OT as appropriate 23. Utilize diversional activities 24. Educate patient and patient representative personal service how to maintain a safe environment during visitationtimes (notify nurse prior to leaving bedside) 25. Consider appropriateness of medical or non-medical radiation tech 26. Set up voiding schedule as appropriate (every 2 hours) Outcome: Progressing Note: Evaluation of progress towards goal: Fall bundles maintained * Plan of Care - Debra Huggins RN - 06/22/2025 2:18 PM EDT Problem: Pain Goal: Patient goal is pain score less than 4, able to rest, and participant in treatment plan as appropriate Description: INTERVENTIONS: 1. Encourage patient or legal representative personal service to report early pain and ask for [...] per policy 9. Teach patient or legal representative personal service interventions for comforting Outcome: Progressing Note: Evaluation [...] at the bedside 7. Instruct patient/ patient representative personal service about use of safety devices 8. Include patient/ patient representative personal service in decisions related to safety Outcome: Progressing [...] hygiene technique. 7. Identify and instruct patient/patient representative personal service in use of appropriate isolation precautionsfor identified infection/symptoms. 8. Provide and discuss with patient/patient representative personal service on educational MDRO sheet. 9. Encourage and monitor nutritional status daily and consult field return repairer if indicated. 10. Implement neutropenic guidelines as needed. Outcome: Progressing Note: Evaluation of progress towards goal: continue to monitor labs, vitals, tele, IV site Problem: Knowledge Deficit Goal: Patient/patient representative personal service demonstrates understanding of disease process, treatment plan,medications, and discharge instructions Description: INTERVENTIONS 1. Complete [...] supplement as ordered 13. Collaborate with clinical field return repairer 14. Include patient/ patient's representative personal service in decisions related to nutrition Outcome: Progressing [...] of consciousness, motor function, sensory function, and levelof assistance needed for ADLs 4. Monitor and [...] and report duration and description of seizure toLIP 10. If seizure occurs, turn patient to [...] develop effective communication strategies 4. Include patient/patient representative personal service in decisions related to communication Outcome: Progressing Note: Evaluation of progress towards goal: [place], speak loudly and understands Problem: Potential for [...] towards goal: aspiration precautions observed; tolerating regular dietwell Problem: Anxiety Goal: Anxiety is at manageable level Description: Patient's goal is: INTERVENTIONS 1. Assess and monitor patient's anxiety level 2. Monitor for signs and symptoms of anxiety both physical and emotional (heart palpitations, chestpain, shortness of breath, headaches, nausea, feeling jumpy, [...] Collaborate with ancillary departments 14. Include patient/patient representative personal service in decisions related to anxiety Outcome: Progressing [...] providing care 6. Collaborate with pastoral/spiritual care, director of social services, mental health counselor as needed. 7. Instruct patient on diversional activities such as physical activity, distraction, and deep breathing exercises to assist with coping 8. Involve patient's representative personal service in care Outcome: Progressing Note: Evaluation of [...] Progressing Note: Evaluation of progress towards goal: [place] [facility] [place] Problem: Moderate - High Risk Fall Score Description: [place] Fall Score of =/> 25 or indicated by [facility] Assessment Goal: Patient should be free from fall Description: Interventions: 1. [place] to environment 2. Hourly rounds addressing the [...] non-skid footwear 11. Teach patient and patient representative personal service to maintain environment for safety and engage [...] (cane, walker) within reach 19. Request patient representative personal service bring adaptive equipment/mobility aids from home or obtain and provide as needed 20. Consult pharmacy regarding effects of med's affecting mobility, cognition, and alternatives 21. Obtain physician order for PT if risk factors associated with mobility are present 22. Obtain physician order for OT as appropriate 23. Utilize diversional activities 24. Educate patient and patient representative personal service how to maintain a safe environment during visitationtimes (notify nurse prior to leaving bedside) 25. Consider appropriateness of medical or non-medical radiation tech 26. Set up voiding schedule as appropriate (every 2 hours) Outcome: Progressing Note: Evaluation of progress towards goal: no falls; syncopal episode per notes 06/21; up with assistonly; high fall risk - maintain precautions * Discharge Planning Note - Norma Ritter - 06/22/2025 12:42 PM EDT DISCHARGE PLANNING NOTE Prior Auth approved for admission to : [facility] (P# [phone] ; F# ) Approval # [id number] Valid for Dates: 06/22/2025 - 06/28/2025 * Discharge Planning Note - Norma Ritter - 06/22/2025 10:39 AM EDT DISCHARGE PLANNING NOTE Prior auth submitted to: [employer] Via: [employer] On behalf of : [facility] (P# ; F# ) Ref# [id number] * Discharge Planning Note - CHARLES Lee - 06/22/2025 10:15 AM EDT DISCHARGE PLANNING NOTE Case discussed in daily transition rounds and chart reviewed by CN. Discharge Plan remains: [facility] [place]. [facility] accepting referral. Social work contacted to inform of above and she was pleased with the news. is looking for patient's SSN. Social work task [facility] to start precert. CN will continue to follow and is available should any further needs arise. - CHARLES LEE 06/22/25 10:15 AM Insurance approved SNF stay. Patient is tentatively discharged tomorrow. [facility] inform of [facility] discharge date. Social work contacted to inform of above and she is agreeable to transition plan. HENS started. - CHARLES LEE 06/22/25 2:54 PM * Plan of Care - Yonathan Joy RN - 06/22/2025 3:45 AM EDT Problem: Pain Goal: Patient goal is pain score less than 4, able to rest, and participant in treatment plan as appropriate Description: INTERVENTIONS: 1. Encourage patient or legal representative personal service to report early pain and ask for [...] per policy 9. Teach patient or legal representative personal service interventions for comforting Outcome: Progressing Note: Evaluation [...] at the bedside 7. Instruct patient/ patient representative personal service about use of safety devices 8. Include patient/ patient representative personal service in decisions related to safety Outcome: Progressing [...] hygiene technique. 7. Identify and instruct patient/patient representative personal service in use of appropriate isolation precautionsfor identified infection/symptoms. 8. Provide and discuss with patient/patient representative personal service on educational MDRO sheet. 9. Encourage and monitor nutritional status daily and consult field return repairer if indicated. 10. Implement neutropenic guidelines as needed. Outcome: Progressing Note: Evaluation of progress towards goal: Pt has no s/s of infection, standard precaution maintained Problem: Knowledge Deficit Goal: Patient/patient representative personal service demonstrates understanding of disease process, treatment plan,medications, and discharge instructions Description: INTERVENTIONS 1. Complete [...] supplement as ordered 13. Collaborate with clinical field return repairer 14. Include patient/ patient's representative personal service in decisions related to nutrition Outcome: Progressing [...] of consciousness, motor function, sensory function, and levelof assistance needed for ADLs 4. Monitor and [...] and report duration and description of seizure toLIP 10. If seizure occurs, turn patient to [...] develop effective communication strategies 4. Include patient/patient representative personal service in decisions related to communication Outcome: Progressing [...] anxiety both physical and emotional (heart palpitations, chestpain, shortness of breath, headaches, nausea, feeling jumpy, [...] Collaborate with ancillary departments 14. Include patient/patient representative personal service in decisions related to anxiety Outcome: Progressing [...] providing care 6. Collaborate with pastoral/spiritual care, director of social services, mental health counselor as needed. 7. Instruct patient on diversional activities such as physical activity, distraction, and deep breathing exercises to assist with coping 8. Involve patient's representative personal service in care Outcome: Progressing Note: Evaluation of [...] Moderate - High Risk Fall Score Description: [place] Fall Score of =/> 25 or indicated by [facility] Assessment Goal: Patient should be free from fall Description: Interventions: 1. [place] to environment 2. Hourly rounds addressing the [...] non-skid footwear 11. Teach patient and patient representative personal service to maintain environment for safety and engage [...] (cane, walker) within reach 19. Request patient representative personal service bring adaptive equipment/mobility aids from home or obtain and provide as needed 20. Consult pharmacy regarding effects of med's affecting mobility, cognition, and alternatives 21. Obtain physician order for PT if risk factors associated with mobility are present 22. Obtain physician order for OT as appropriate 23. Utilize diversional activities 24. Educate patient and patient representative personal service how to maintain a safe environment during visitationtimes (notify nurse prior to leaving bedside) 25. Consider appropriateness of medical or non-medical radiation tech 26. Set up voiding schedule as appropriate (every 2 hours) Outcome: Progressing Note: Evaluation of progress towards goal: Fall bundles maintained * Plan of Care - Lauren Gaona RN - 06/21/2025 6:18 PM EDT Problem: Knowledge Deficit Goal: Patient/patient representative personal service demonstrates understanding of disease process, treatment plan,medications, and discharge instructions Description: INTERVENTIONS 1. Complete [...] of consciousness, motor function, sensory function, and levelof assistance needed for ADLs 4. Monitor and [...] and report duration and description of seizure toLIP 10. If seizure occurs, turn patient to [...] for adl's Problem: Knowledge Deficit Goal: Patient/patient representative personal service demonstrates understanding of disease process, treatment plan,medications, and discharge instructions Description: INTERVENTIONS 1. Complete [...] of consciousness, motor function, sensory function, and levelof assistance needed for ADLs 4. Monitor and [...] and report duration and description of seizure toLIP 10. If seizure occurs, turn patient to [...] Description: INTERVENTIONS: 1. Encourage patient or legal representative personal service to report early pain and ask for [...] per policy 9. Teach patient or legal representative personal service interventions for comforting Outcome: Progressing Note: Evaluation [...] at the bedside 7. Instruct patient/ patient representative personal service about use of safety devices 8. Include patient/ patient representative personal service in decisions related to safety Outcome: Progressing [...] hygiene technique. 7. Identify and instruct patient/patient representative personal service in use of appropriate isolation precautionsfor identified infection/symptoms. 8. Provide and discuss with patient/patient representative personal service on educational MDRO sheet. 9. Encourage and monitor nutritional status daily and consult field return repairer if indicated. 10. Implement neutropenic guidelines as [...] supplement as ordered 13. Collaborate with clinical field return repairer 14. Include patient/ patient's representative personal service in decisions related to nutrition Outcome: Progressing [...] develop effective communication strategies 4. Include patient/patient representative personal service in decisions related to communication Outcome: Progressing [...] anxiety both physical and emotional (heart palpitations, chestpain, shortness of breath, headaches, nausea, feeling jumpy, [...] Collaborate with ancillary departments 14. Include patient/patient representative personal service in decisions related to anxiety Outcome: Progressing [...] providing care 6. Collaborate with pastoral/spiritual care, director of social services, mental health counselor as needed. 7. Instruct patient on diversional activities such as physical activity, distraction, and deep breathing exercises to assist with coping 8. Involve patient's representative personal service in care Outcome: Progressing Note: Evaluation of [...] indicated by [facility] Assessment Goal: Patient should be free from fall Description: Interventions: 1. [place] to environment 2. Hourly rounds addressing the [...] non-skid footwear 11. Teach patient and patient representative personal service to maintain environment for safety and engage [...] (cane, walker) within reach 19. Request patient representative personal service bring adaptive equipment/mobility aids from home or obtain and provide as needed 20. Consult pharmacy regarding effects of med's affecting mobility, cognition, and alternatives 21. Obtain physician order for PT if risk factors associated with mobility are present 22. Obtain physician order for OT as appropriate 23. Utilize diversional activities 24. Educate patient and patient representative personal service how to maintain a safe environment during visitationtimes (notify nurse prior to leaving bedside) 25. Consider appropriateness of medical or non-medical radiation tech 26. Set up voiding schedule as appropriate [...] of consciousness, motor function, sensory function, and levelof assistance needed for ADLs 4. Monitor and [...] and report duration and description of seizure toLIP 10. If seizure occurs, turn patient to [...] Description: INTERVENTIONS: 1. Encourage patient or legal representative personal service to report early pain and ask for [...] per policy 9. Teach patient or legal representative personal service interventions for comforting Outcome: Progressing Note: Evaluation [...] at the bedside 7. Instruct patient/ patient representative personal service about use of safety devices 8. Include patient/ patient representative personal service in decisions related to safety Outcome: Progressing [...] hygiene technique. 7. Identify and instruct patient/patient representative personal service in use of appropriate isolation precautionsfor identified infection/symptoms. 8. Provide and discuss with patient/patient representative personal service on educational MDRO sheet. 9. Encourage and monitor nutritional status daily and consult field return repairer if indicated. 10. Implement neutropenic guidelines as [...] supplement as ordered 13. Collaborate with clinical field return repairer 14. Include patient/ patient's representative personal service in decisions related to nutrition Outcome: Progressing [...] develop effective communication strategies 4. Include patient/patient representative personal service in decisions related to communication Outcome: Progressing [...] anxiety both physical and emotional (heart palpitations, chestpain, shortness of breath, headaches, nausea, feeling jumpy, [...] Collaborate with ancillary departments 14. Include patient/patient representative personal service in decisions related to anxiety Outcome: Progressing [...] providing care 6. Collaborate with pastoral/spiritual care, director of social services, mental health counselor as needed. 7. Instruct patient on diversional activities such as physical activity, distraction, and deep breathing exercises to assist with coping 8. Involve patient's representative personal service in care Outcome: Progressing Note: Evaluation of [...] be free from fall Description: Interventions: 1. [place] to environment 2. Hourly rounds addressing the [...] non-skid footwear 11. Teach patient and patient representative personal service to maintain environment for safety and engage [...] (cane, walker) within reach 19. Request patient representative personal service bring adaptive equipment/mobility aids from home or obtain and provide as needed 20. Consult pharmacy regarding effects of med's affecting mobility, cognition, and alternatives 21. Obtain physician order for PT if risk factors associated with mobility are present 22. Obtain physician order for OT as appropriate 23. Utilize diversional activities 24. Educate patient and patient representative personal service how to maintain a safe environment during visitationtimes (notify nurse prior to leaving bedside) 25. Consider appropriateness of medical or non-medical radiation tech 26. Set up voiding schedule as appropriate (every 2 hours) Outcome: Progressing Note: Evaluation of progress towards goal: free of fall this shift Problem: Pain Goal: Patient goal is pain score less than 4, able to rest, and participant in treatment plan as appropriate Description: INTERVENTIONS: 1. Encourage patient or legal representative personal service to report early pain and ask for [...] per policy 9. Teach patient or legal representative personal service interventions for comforting Outcome: Progressing Note: Evaluation [...] at the bedside 7. Instruct patient/ patient representative personal service about use of safety devices 8. Include patient/ patient representative personal service in decisions related to safety Outcome: Progressing [...] at the bedside 7. Instruct patient/ patient representative personal service about use of safety devices 8. Include patient/ patient representative personal service in decisions related to safety Outcome: Progressing [...] hygiene technique. 7. Identify and instruct patient/patient representative personal service in use of appropriate isolation precautionsfor identified infection/symptoms. 8. Provide and discuss with patient/patient representative personal service on educational MDRO sheet. 9. Encourage and monitor nutritional status daily and consult field return repairer if indicated. 10. Implement neutropenic guidelines as [...] supplement as ordered 13. Collaborate with clinical field return repairer 14. Include patient/ patient's representative personal service in decisions related to nutrition Outcome: Progressing [...] develop effective communication strategies 4. Include patient/patient representative personal service in decisions related to communication Outcome: Progressing [...] anxiety both physical and emotional (heart palpitations, chestpain, shortness of breath, headaches, nausea, feeling jumpy, [...] Collaborate with ancillary departments 14. Include patient/patient representative personal service in decisions related to anxiety Outcome: Progressing [...] indicated by [facility] Assessment Goal: Patient should be free from fall Description: Interventions: 1. [place] to environment 2. Hourly rounds addressing the [...] non-skid footwear 11. Teach patient and patient representative personal service to maintain environment for safety and engage [...] (cane, walker) within reach 19. Request patient representative personal service bring adaptive equipment/mobility aids from home or obtain and provide as needed 20. Consult pharmacy regarding effects of med's affecting mobility, cognition, and alternatives 21. Obtain physician order for PT if risk factors associated with mobility are present 22. Obtain physician order for OT as appropriate 23. Utilize diversional activities 24. Educate patient and patient representative personal service how to maintain a safe environment during visitationtimes (notify nurse prior to leaving bedside) 25. Consider appropriateness of medical or non-medical radiation tech 26. Set up voiding schedule as appropriate [...] providing care 6. Collaborate with pastoral/spiritual care, director of social services, mental health counselor as needed. 7. Instruct patient on diversional activities such as physical activity, distraction, and deep breathing exercises to assist with coping 8. Involve patient's representative personal service in care Outcome: Progressing Note: Evaluation of progress towards goal: no issues * Discharge Planning Note - Martina Mckeon - 06/21/2025 3:45 PM EDT DISCHARGE PLANNING NOTE Referral sent to [facility] (P# ; F# ) * Discharge Planning Note - Rohini Mcintyre RN - 06/21/2025 2:29 PM EDT 06/21/25 1428 Services Requested Patient expects to be discharged to: SNF Does the patient wish to have family/friend/caregiver involved in their discharge planning? Yes Does the patient plan to return home to a community setting? No, patient to discharge to facility-based provider. See Discharge Disposition Discharge Disposition SNF Facility/Service Name NA SNF Name [facility] Does the patient need discharge transportation arranged? Yes Transportation Arranged Ambulance Mobility issues discussed with transportation provider Yes Patient choice offered Yes List Provided Yes [facility] List Provided Intermediate Facility Financial Disclosure Provided for In-Network Referral Yes DISCHARGE PLANNING NOTE CN spoke w pts , SNF choice is [facility]. She did n ot have a 2nd choice. CN asked her to review list for dditional choices. CN tasked for referral to [facility]. Barriers: SNFaccept. Will need precert. CTbrain.Rohini Mcintyre RN * Discharge Planning Note - Rohini Mcintyre RN - 06/21/2025 12:44 PM EDT DISCHARGE PLANNING NOTE PT/OT rec SNF. CN called and left Voicemail for pts . Pt not appropriate for [facility]. Need SNF choices. CN also sent SNF list Via careport to pts cell phone to select choices. Await response. Rohini Mcintyre RN * PT/OT/OUTREACH REP - Veronica Chavezsheryl, OTR/L - 06/21/2025 9:58 AM EDT Occupational Therapy Re-Evaluation Discharge Recommendations for Safe Patient Transition Discharge Recommendations: Post acute - moderate Post Acute Moderate Rehab Needs: Recommend moderate intensity rehab, Tolerate 1- 2 hrs of therapy 3-5 days/wk, Subacute or chronic functional impairment Current Impairments Informing Therapy Recommendation: Ambulation status/safety, Cognition, Fall risk, ADL status, Endurance level, Communication needs Modified [place] Level of Disability: Moderately severe [...] on coumadin and diabetic. Continue to recommend care home facility. Patient with episode of decreased responsiveness with listing to the left while on commode for 1-2 minutes. Once alert patient was nauseated. Lauren KHAN called to room. Patient assisted from toilet mireya and MD in room. See below for past medical and past surgical history. Past Medical History: Diagnosis [place] [place] BPH (benign prostatic hyperplasia) Broken nose CVA [place]cerebral vascular [place] [place] [place] Epistaxis Hypertension Hyponatremia secondary to SIADH Hypothyroid [...] Equipment: waker, chair alarm, gait belt, telemetry. Telemetry/Dexigraph Operator: Yes Oxygen Used: room air Other: (S) [...] Patient was not able to verbalize or followcommands. Lauren KHAN called. Patient after 1-2 minutes aroused. patient was able to answer his name,recall his sons names. patient moved from toilet [...] Patient was not able to verbalize or followcommands. Lauren KHAN called. Patient after 1-2 minutes aroused. patient was able to answer his name,recall his sons names. patient moved from toilet [...] blank stare and listing to the left. RNLauren called to room Patient assisted to chair [...] Patient will perform toilet transfers with Modified [place] Dates: Start: 06/21/25 Expected End: 07/19/25 Description: [...] problems. Principal Problem: CVA (cerebral vascular accident) ([facility]) * PT/OT/OUTREACH REP - Ayaan Campos, PT - 06/21/2025 9:56 AM EDT Physical Therapy Re-Evaluation Discharge Recommendations for Safe Patient Transition Discharge Recommendations: Post acute - moderate Post Acute Moderate Rehab Needs: Recommend moderate intensity rehab, Tolerate 1- 2 hrs of therapy 3-5 days/wk, Subacute or [...] 6 Clicks: Basic Mobility Raw Score: [address] [facility] G Code Modifier: CK SwePASS score = [...] Past Medical History: Diagnosis Date Atrial [place] [place] BPH (benign prostatic hyperplasia) Broken nose CVA [place]cerebral vascular accident) [place] 06/17/2025 [place] [place] Epistaxis Hypertension Hyponatremia secondary to SIADH Hypothyroid Lumbar spondylosis TIA (transient ischemic attack) Past Surgical History: Procedure Laterality Date NECK SURGERY plate in neck per Modified [place] Level of Disability: Moderately severe disability 0= [...] gait belt, wheeled walker, IV, chair/bed alarm Telemetry/Dexigraph Operator: Yes Oxygen Used: room air Other: (S) fall risk, confusion. Episode of decreased responsiveness during this session Subjective Physical Therapy Comments: Pt more alert this date, slow to respond and oriented to self only. [place] recall where he lives and his 's [...] problems. Principal Problem: CVA (cerebral vascular accident) ([facility]) * Plan of Care - Nicole Sparks RN - 06/20/2025 11:40 PM EDT Problem: Pain Goal: Patient goal is pain score less than 4, able to rest, and participant in treatment plan as appropriate Description: INTERVENTIONS: 1. Encourage patient or legal representative personal service to report early pain and ask for [...] per policy 9. Teach patient or legal representative personal service interventions for comforting Outcome: Progressing Note: Evaluation [...] at the bedside 7. Instruct patient/ patient representative personal service about use of safety devices 8. Include patient/ patient representative personal service in decisions related to safety Outcome: Progressing [...] hygiene technique. 7. Identify and instruct patient/patient representative personal service in use of appropriate isolation precautionsfor identified infection/symptoms. 8. Provide and discuss with patient/patient representative personal service on educational MDRO sheet. 9. Encourage and monitor nutritional status daily and consult field return repairer if indicated. 10. Implement neutropenic guidelines as needed. Outcome: Progressing Note: Evaluation of progress towards goal: No s/s of infection at this time Problem: Knowledge Deficit Goal: Patient/patient representative personal service demonstrates understanding of disease process, treatment plan,medications, and discharge instructions Description: INTERVENTIONS 1. Complete [...] indicated by [facility] Assessment Goal: Patient should be free from fall Description: Interventions: 1. [place] to environment 2. Hourly rounds addressing the [...] non-skid footwear 11. Teach patient and patient representative personal service to maintain environment for safety and engage [...] (cane, walker) within reach 19. Request patient representative personal service bring adaptive equipment/mobility aids from home or obtain and provide as needed 20. Consult pharmacy regarding effects of med's affecting mobility, cognition, and alternatives 21. Obtain physician order for PT if risk factors associated with mobility are present 22. Obtain physician order for OT as appropriate 23. Utilize diversional activities 24. Educate patient and patient representative personal service how to maintain a safe environment during visitationtimes (notify nurse prior to leaving bedside) 25. Consider appropriateness of medical or non-medical radiation tech 26. Set up voiding schedule as appropriate (every 2 hours) Outcome: Progressing Note: Evaluation of progress towards goal: pt free from fall at this time Problem: Knowledge Deficit Goal: Patient/patient representative personal service demonstrates understanding of disease process, treatment plan,medications, and discharge instructions Description: INTERVENTIONS 1. Complete [...] of consciousness, motor function, sensory function, and levelof assistance needed for ADLs 4. Monitor and [...] and report duration and description of seizure toLIP 10. If seizure occurs, turn patient to [...] alert and oriented to person and age * Situational Awareness - Gary Coronado MD - 06/20/2025 5:36 PM EDT [facility] Transfer Accept Note I have received a request for transfer of primary service for this patient from the neurology team care of neurology attending, clinical handoff received from Neurology resident. [facility] will assume careas primary team of this patient 7:00 a.m. 06/21/2025. * Plan of Care - Noreen Myers RPH - 06/20/2025 3:45 PM EDT Problem: Medication Description: If medication is necessary, [...] also shows no change in renal function. * Discharge Planning Note - Rohini Mcintyre RN - 06/20/2025 12:33 PM EDT DISCHARGE PLANNING NOTE Pt will need updated PT/OT notes sent to [facility]. When pt/ot worked w him yesterday they rec SNF, but he was much less alert. Pt doing better today. Therapy will work w him tomorrow morning 06/21to see if IPR appropriate. Barriers: IPR accept, pt/ot to see, precert. Rohini Mcintyre RN * Discharge Planning Note - Brianna Verduzco - 06/20/2025 10:36 AM EDT DISCHARGE PLANNING NOTE I received a voice mail from Franc at [facility] phone [phone], she says she has left a few messages for an update for patient. This is the only vm I have received. Sending an [employer]guo chat to Rohini / Vivienne / Mesha with information * Plan of Care - Nicole Sparks RN - 06/19/2025 11:13 PM EDT Problem: Pain Goal: Patient goal is pain score less than 4, able to rest, and participant in treatment plan as appropriate Description: INTERVENTIONS: 1. Encourage patient or legal representative personal service to report early pain and ask for [...] per policy 9. Teach patient or legal representative personal service interventions for comforting Outcome: Progressing Note: Evaluation [...] at the bedside 7. Instruct patient/ patient representative personal service about use of safety devices 8. Include patient/ patient representative personal service in decisions related to safety Outcome: Progressing [...] hygiene technique. 7. Identify and instruct patient/patient representative personal service in use of appropriate isolation precautionsfor identified infection/symptoms. 8. Provide and discuss with patient/patient representative personal service on educational MDRO sheet. 9. Encourage and monitor nutritional status daily and consult field return repairer if indicated. 10. Implement neutropenic guidelines as [...] supplement as ordered 13. Collaborate with clinical field return repairer 14. Include patient/ patient's representative personal service in decisions related to nutrition Outcome: Progressing [...] of consciousness, motor function, sensory function, and levelof assistance needed for ADLs 4. Monitor and [...] and report duration and description of seizure toLIP 10. If seizure occurs, turn patient to [...] indicated by [facility] Assessment Goal: Patient should be free from fall Description: Interventions: 1. [place] to environment 2. Hourly rounds addressing the [...] non-skid footwear 11. Teach patient and patient representative personal service to maintain environment for safety and engage [...] (cane, walker) within reach 19. Request patient representative personal service bring adaptive equipment/mobility aids from home or obtain and provide as needed 20. Consult pharmacy regarding effects of med's affecting mobility, cognition, and alternatives 21. Obtain physician order for PT if risk factors associated with mobility are present 22. Obtain physician order for OT as appropriate 23. Utilize diversional activities 24. Educate patient and patient representative personal service how to maintain a safe environment during visitationtimes (notify nurse prior to leaving bedside) 25. Consider appropriateness of medical or non-medical radiation tech 26. Set up voiding schedule as appropriate (every 2 hours) Outcome: Progressing Note: Evaluation of progress towards goal: pt free from fall at this time safety measures in place * PT/OT/OUTREACH REP - Ayaan Campos, PT - 06/19/2025 2:49 PM EDT Physical Therapy Evaluation Discharge Recommendations for Safe Patient Transition Discharge Recommendations: Post acute - moderate Post Acute Moderate Rehab Needs: Recommend moderate intensity rehab, Tolerate 1- 2 hrs of therapy 3-5 days/wk, Subacute or [...] 6 Clicks: Basic Mobility Raw Score: [address] [facility] G Code Modifier: CN SwePASS score = 4/36 Pt is an 85 yo male admit 06/17 with L sided weakness and aphasia while at Coumadin clinic. NIHSS = 13. Pt with recent hospitalization 06/02 s/p fall while adjusting lawn chair with nasal bone fracture and persistent epistaxis. CT brain - no acute CTA - R P1/P2 occlusion. TNK given and transfer to [facility]. On arrival, NIHSS = 0 CT perfusion [...] Past Medical History: Diagnosis Date At[place] [place] BPH (benign prostatic hyperplasia) Broken nose CVA [place]cerebral vascular [place] [place] [place]/17/[place] [place] Epistaxis Hypertension Hyponatremia secondary to SIADH Hypothyroid Lumbar spondylosis TIA (transient ischemic attack) Past Surgical History: Procedure Laterality Date NECK SURGERY plate in neck per Modified [place] Level of Disability: Severe disability 0= No [...] tolerated Equipment: repositioning sling, IV, bed alarm Telemetry/Dexigraph Operator: Yes Oxygen Used: room air Other: high [...] with rails Stairs to Enter: 2 from twisting frame fixer Rails: Right Stairs in Home: 0 Bathroom Shower/Tub: Walk-in shower Bathroom Toilet: Standard Home Equipment: Rolling walker Other : Home info from EMR review of recent therapy eval at [facility] - pt not able to answer questionsthis date and no family present. 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 Principal Problem: CVA (cerebral vascular accident) ([facility]) * PT/OT/OUTREACH REP - Veronica Rivera OTR/L - 06/19/2025 2:48 PM EDT Occupational Therapy Evaluation Discharge Recommendations for Safe Patient Transition Discharge Recommendations: Post acute - moderate Post Acute Moderate Rehab Needs: Recommend moderate intensity rehab, Tolerate 1- 2 hrs of therapy 3-5 days/wk, Subacute or chronic functional impairment Current Impairments Informing Therapy Recommendation: Ambulation status/safety, Cognition, Fall risk, ADL status, Communication needs, Endurance level Modified [place] Level of Disability: Severe disability [...] lot Scoring Daily Activity Raw Score: [address] [facility] G Code Modifier: CL Modifed chip index; 0/20 Occupational Profile Patient is a 85 year old male admitted with left side weakness and aphasia. CT brain: no acute. CTA: right P1/P2 occlusion. TNK given. CT perfusion: possible deficit left anterior temporal horn, likely artifact. MRI brain: no acute infarct, mild small vessel ischemic changes. Echo: results pending.Carotid duplex: pending. See below for past medical and past surgical history. Past Medical History: Diagnosis Date [place] [place] BPH (benign prostatic hyperplasia) Broken nose CVA [place]cerebral vascular [place]) [place] [place]/17/2025 [place] [place] Epistaxis Hypertension Hyponatremia secondary to SIADH Hypothyroid [...] Functional transfer training, Patient/family training, Home management, Neuromuscularreeducation, Functional activities, Equipment eval/education OT Frequency: 4-5days/week OT Duration: jul 19, 2025 Assessment Patient Assessment Therapy Problem List: Decreased ADL status, Decreased balance, Decreased cognition, Decreased endurance, Decreased high-level ADLs, Decreased mobility, Decreased safe judgement during ADL, Decreased self-care trans, Decreased UE ROM, Decreased UE strength, Decreased LE strength Patient Response to Treatment: Slow progress, cognitive deficits, Slow progress, decreased activitytolerance Mood/Affect: Flat Rehab Prognosis: Good, With continued OT status post acute discharge Visit RN Communication: Yes Medical Record Reviewed: Yes OT Type of Visit: Evaluation Precautions Activity: advance activity as tolerated per early mobility guidelines. Equipment: telemetry, IV Telemetry/Dexigraph Operator: Yes Oxygen Used: room air Other: fall [...] for manual muscle test. patient was able tomove right arm non purposeful to wipe face. [...] problems. Principal Problem: CVA (cerebral vascular accident) ([facility]) * Discharge Planning Note - Dawson Yost RN - 06/19/2025 8:40 AM EDT Ongoing Assessment for Discharge Needs Reviewed discharge [...] assessed to determine their readiness, skills, capacities, andresources to provide post hospital care? Yes, Caregiver Assessment Completed Discharge Disposition Home with home health services Facility/Service Name [facility] Case discussed in daily transition rounds and chart reviewed by CN. Barriers to discharge include PT/OT, PMR to see, Discharge Plan remains: Home with HHC vs IPR. [facility] will accept. [facility]- will need PT/OT notes as soon as they are in. CN will continue to follow and is available should any further needs arise. - Dawson Yost RN 06/19/25 8:40 AM * Plan of Care - Leigha Eden RN - 06/18/2025 10:49 PM EDT Problem: Pain Goal: Patient goal is pain score less than 4, able to rest, and participant in treatment plan as appropriate Description: INTERVENTIONS: 1. Encourage patient or legal representative personal service to report early pain and ask for [...] per policy 9. Teach patient or legal representative personal service interventions for comforting Outcome: Progressing Note: Evaluation of progress towards goal: Pt able to rate pain no a scale of 1- 10. PRN pain medications available, see MAR. Problem: [...] at the bedside 7. Instruct patient/ patient representative personal service about use of safety devices 8. Include patient/ patient representative personal service in decisions related to safety Outcome: Progressing [...] hygiene technique. 7. Identify and instruct patient/patient representative personal service in use of appropriate isolation precautionsfor identified infection/symptoms. 8. Provide and discuss with patient/patient representative personal service on educational MDRO sheet. 9. Encourage and monitor nutritional status daily and consult field return repairer if indicated. 10. Implement neutropenic guidelines as needed. Outcome: Progressing Note: Evaluation of progress towards goal: Pt should remain free from infection during this shift. Standard precautions used during care. Problem: Knowledge Deficit Goal: Patient/patient representative personal service demonstrates understanding of disease process, treatment plan,medications, and discharge instructions Description: INTERVENTIONS 1. Complete [...] of consciousness, motor function, sensory function, and levelof assistance needed for ADLs 4. Monitor and [...] and report duration and description of seizure toLIP 10. If seizure occurs, turn patient to [...] indicated by [facility] Assessment Goal: Patient should be free from fall Description: Interventions: 1. [place] to environment 2. Hourly rounds addressing the [...] non-skid footwear 11. Teach patient and patient representative personal service to maintain environment for safety and engage [...] (cane, walker) within reach 19. Request patient representative personal service bring adaptive equipment/mobility aids from home or obtain and provide as needed 20. Consult pharmacy regarding effects of med's affecting mobility, cognition, and alternatives 21. Obtain physician order for PT if risk factors associated with mobility are present 22. Obtain physician order for OT as appropriate 23. Utilize diversional activities 24. Educate patient and patient representative personal service how to maintain a safe environment during visitationtimes (notify nurse prior to leaving bedside) 25. Consider appropriateness of medical or non-medical radiation tech 26. Set up voiding schedule as appropriate (every 2 hours) Outcome: Progressing Note: Evaluation of progress towards goal: Pt should remain free from fall during this shift. Bed in lowest position and locked, side rails up 2/4, personal items and call light within reach, non skid socks applied, environment clear of hazards. * Discharge Planning Note - Martina Mckeon - 06/18/2025 1:25 PM EDT DISCHARGE PLANNING NOTE Referral sent to [facility] in [place] (P# ; F# ) * Discharge Planning Note - Brianna Verduzco - 06/18/2025 1:04 PM EDT DISCHARGE PLANNING NOTE Referral sent to. [facility] in [place], [place] (P# ; F# ) * Discharge Planning Note - Dawson Yost RN - 06/18/2025 12:24 PM EDT Images from the original note were [...] and we didn't have money to get more.Never True Hunger Screening Complete? Yes Pt. Eligible [...] assessed to determine their readiness, skills, capacities, andresources to provide post hospital care? Yes, Caregiver Assessment Completed Discharge Disposition Acute rehab, Home with home health services Cage Cashier met with patient, introduced self, and explained role. Patient educated on safe discharge plan. Pt admitted 06/17/2025 with CVA (cerebral vascular accident) (CMS-HCC) [I63.9] per chart review. Consults: Neurology Discharge Barriers per Daily Transition Rounds and chart review: PT/OT, s/p TNK- bedrest, MRi, echo. 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 Caregiver's personal limitations include Patient's feels she [...] vs acute rehab. PCP: TANYA Lozano Pharmacy: [facility] PCP and pharmacy confirmed with patient. CN offered to assist with follow up appointment arrangements; . TANYA Lozano added to Follow Up Providers for Summary of Care communication. Per patient self-report: Drug use: denies Smoking: denies ETOH Use: rarely Current discharge plan is: Home with [facility] vs acute rehab pending PT/OT eval. CN spoke with patient'swife she has used [facility] in past. Tasked to send referrals to [facility] and to [facility]. Services Requested: Services Requested Patient expects to be discharged to:: home Does the patient wish to have family/friend/caregiver involved in their discharge planning?: Yes Does the patient plan to return home to a community setting?: Yes Has the family/friend/caregiver been assessed to determine their readiness, skills, capacities, andresources to provide post hospital care?: Yes, Caregiver Assessment Completed Discharge Disposition: Acute rehab, Home with home health services Goals: Goals <enter goal here> (pt-stated) Evaluation of progress towards goal: Home with [facility] Autogenerated Goal Will continue to follow as plan of care develops. CN discussed benefits and importance of medication compliance and follow ups. Please feel free to reach out for any discharge planning questions. - Dawson Yost RN 06/18/25 12:24 PM * PT/OT/OUTREACH REP - Zaire Sierra CCC-OUTREACH REP - 06/18/2025 10:35 AM EDT Speech Therapy Evaluation Bedside Swallow/Feeding Evaluation Speech & Language Cognitive Evaluation Discharge Recommendations for Safe Patient Transition OUTREACH REP Post Discharge Therapy Recommendations: Continue ST services Recommendations Diet Level: Regular Liquid Level: Level 0 Thin Compensatory Strategies: Small sips/bites, One sip/bite at a time, Follow aspiration precautions Supervision/Positioning: Patient at 90 degress for all PO intake (including medication), Patient toremain upright 15 minutes after meals Impressions Oral Dysphagia: Mild Pharyngeal Dysphagia Suspected: Yes Plan Frequency: 2-3days/week Duration: until discharge Need for skilled Speech Language Pathology Services to address deficits in feeding/swallowing due to a status decline resulting from CVA. Prognosis Services: Skilled OUTREACH REP services to address above deficits Prognosis/Potential: Good Considerations: Age, Cognition Discharge Recommendations for Safe Patient Transition OUTREACH REP Post Discharge Therapy Recommendations: Continue ST services [...] should be further evaluated. Prognosis Services: Skilled OUTREACH REP services to address the above deficits Prognosis/Potential: [...] Dysphagia Problem: Swallowing Dates: Start: 06/18/25 Disciplines: OUTREACH REP Goal: STG: Patient will complete safety strategies independently during PO intake 90% of the time Dates: Start: 06/18/25 Expected End: 07/22/25 Disciplines: OUTREACH REP Template: ST - Rehab Speech Problem: Auditory Comprehension Dates: Start: 06/18/25 Disciplines: OUTREACH REP Goal: LTG: Patient will comprehend communication related to basic medical and social needs and utilize compensatory strategies to maintain safety in a functional living environment Dates: Start: 06/18/25 Expected End: 07/22/25 Disciplines: OUTREACH REP Goal: STG: Patient will answer simple yes/no questions with 90% accuracy with minimal cueing. Dates: Start: 06/18/25 Expected End: 07/22/25 Disciplines: OUTREACH REP Goal: STG: Patient will answer complex yes/no questions with 90% accuracy with minimal cueing Dates: Start: 06/18/25 Expected End: 07/22/25 Disciplines: OUTREACH REP Problem: Verbal Expression Dates: Start: 06/18/25 Disciplines: OUTREACH REP Goal: LTG: Patient will utilize compensatory strategies to communicate wants and needs effectively to different conversational partners, maintain safety and participate socially in a functional living environment Dates: Start: 06/18/25 Expected End: 07/22/25 Disciplines: OUTREACH REP Goal: STG: Patient will complete simple to complex divergent and convergent naming tasks with 90% accuracy with minimal cueing to improve thought organization Dates: Start: 06/18/25 Expected End: 07/22/25 Disciplines: OUTREACH REP Goal: STG: Patient will use word retrieval strategies during structured interactions to improve functional communication during activities of daily living with 90% accuracy with minimal cueing Dates: Start: 06/18/25 Expected End: 07/22/25 Disciplines: OUTREACH REP Speech Therapy Care Plan (Resolved) There are no resolved problems. Principal Problem: CVA (cerebral vascular accident) ([facility]) * PT/OT/OUTREACH REP - ALVARO Chino/Krishan - 06/18/2025 7:37 AM EDT Occupational Therapy OT Type of Visit: Medical deferral Reason For Medical Deferral: Activity limitations Activity Limitations: Strict bedrest (Per TNK protocol. Will continue to follow.) * PT/OT/OUTREACH REP - Ayaan Campos PT - 06/18/2025 7:28 AM EDT Physical Therapy PT Type of Visit: Medical deferral (strict bedrest s/p TNK per protocol) Reason For Medical Deferral: Activity limitations Activity Limitations: Strict bedrest Will check back as appropriate. * Plan of Care - Lin Rhodes RN - 06/18/2025 7:14 AM EDT Problem: Pain Goal: Patient goal is pain score less than 4, able to rest, and participant in treatment plan as appropriate Description: INTERVENTIONS: 1. Encourage patient or legal representative personal service to report early pain and ask for [...] per policy 9. Teach patient or legal representative personal service interventions for comforting Outcome: Progressing Note: Evaluation [...] at the bedside 7. Instruct patient/ patient representative personal service about use of safety devices 8. Include patient/ patient representative personal service in decisions related to safety Outcome: Progressing [...] hygiene technique. 7. Identify and instruct patient/patient representative personal service in use of appropriate isolation precautionsfor identified infection/symptoms. 8. Provide and discuss with patient/patient representative personal service on educational MDRO sheet. 9. Encourage and monitor nutritional status daily and consult field return repairer if indicated. 10. Implement neutropenic guidelines as needed. Outcome: Progressing Note: Evaluation of progress towards goal: Labs and vitals monitored as ordered. Medications administered as ordered. Patient remains free from infection at this time. Problem: Moderate - High Risk Fall Score Description: Valenzuela Fall Score of =/> 25 or indicated by [facility] Assessment Goal: Patient should be free from fall Description: Interventions: 1. [place] to environment 2. Hourly rounds addressing the [...] non-skid footwear 11. Teach patient and patient representative personal service to maintain environment for safety and engage [...] (cane, walker) within reach 19. Request patient representative personal service bring adaptive equipment/mobility aids from home or obtain and provide as needed 20. Consult pharmacy regarding effects of med's affecting mobility, cognition, and alternatives 21. Obtain physician order for PT if risk factors associated with mobility are present 22. Obtain physician order for OT as appropriate 23. Utilize diversional activities 24. Educate patient and patient representative personal service how to maintain a safe environment during visitationtimes (notify nurse prior to leaving bedside) 25. Consider appropriateness of medical or non-medical radiation tech 26. Set up voiding schedule as appropriate (every 2 hours) Outcome: Progressing Note: Evaluation of progress towards goal: Fall risk assessment preformed and safety measures in place. Education given to family/patient. Will continue to monitor. * Plan of Care - Rich Nelson RN - 06/17/2025 7:23 PM EDT Problem: Pain Goal: Patient goal is pain score less than 4, able to rest, and participant in treatment plan as appropriate Description: INTERVENTIONS: 1. Encourage patient or legal representative personal service to report early pain and ask for [...] per policy 9. Teach patient or legal representative personal service interventions for comforting Outcome: Progressing Note: Evaluation [...] at the bedside 7. Instruct patient/ patient representative personal service about use of safety devices 8. Include patient/ patient representative personal service in decisions related to safety Outcome: Progressing Note: Evaluation of progress towards goal: Patient safety maintained, call light in reach, area clear of hazards, hourly rounding continued, bed locked in lowest position, alarm on as applicable, nonskid socks on, safety educated completed with patient/family, [...] hygiene technique. 7. Identify and instruct patient/patient representative personal service in use of appropriate isolation precautionsfor identified infection/symptoms. 8. Provide and discuss with patient/patient representative personal service on educational MDRO sheet. 9. Encourage and monitor nutritional status daily and consult field return repairer if indicated. 10. Implement neutropenic guidelines as needed. Outcome: Progressing Note: Evaluation of progress towards goal: Patient remains free from signs of infection at this time. Will continue to monitor. Problem: Knowledge Deficit Goal: Patient/patient representative personal service demonstrates understanding of disease process, treatment plan,medications, and discharge instructions Description: INTERVENTIONS 1. Complete [...] indicated by [facility] Assessment Goal: Patient should be free from fall Description: Interventions: 1. [place] to environment 2. Hourly rounds addressing the [...] non-skid footwear 11. Teach patient and patient representative personal service to maintain environment for safety and engage [...] (cane, walker) within reach 19. Request patient representative personal service bring adaptive equipment/mobility aids from home or obtain and provide as needed 20. Consult pharmacy regarding effects of med's affecting mobility, cognition, and alternatives 21. Obtain physician order for PT if risk factors associated with mobility are present 22. Obtain physician order for OT as appropriate 23. Utilize diversional activities 24. Educate patient and patient representative personal service how to maintain a safe environment during visitationtimes (notify nurse prior to leaving bedside) 25. Consider appropriateness of medical or non-medical radiation tech 26. Set up voiding schedule as appropriate (every 2 hours) Outcome: Progressing Note: Evaluation of progress towards goal: Fall risk assessment preformed and safety measures in place. Education given to family/patient. Will continue to monitor. Additional Comments: documented in [facility] encounterC[facility] Progress note* Discharge Planning Note - Hellen Brady - 06/23/2025 10:54 AM EDT DISCHARGE PLANNING NOTE [facility] via PTN [facility] Confirmed in [facility]. [facility] Progress note* Discharge Planning Note - CHARLES Lee - 06/23/2025 10:39 AM EDT DISCHARGE PLANNING NOTE Discharge written, CRF complete. Social work task [facility] to arrange BLS transport- wait confirmed time. [facility] [place] notified of discharge and CRF sent. HENS submitted. is aware and agreeable to transition plan. RN updated. - CHARLES LEE 06/23/25 10:42 AM [facility]08-10-[facility] Hospital course Narrative* Erika Crisostomo MD - 06/23/2025 10:30 AM EDT Images from the original note were not included. [facility]- Hospital Medicine Discharge Summary Patient's Name: Dariel Zabala Date of : 1940 Age: 85 yrs Gender: male PCP: Patient Care Team: Yanique Mcneill APRN-AVELINA as PCP - General (Family Medicine) DATE OF ADMISSION: 06/17/2025 DATE OF DISCHARGE: 06/23/2025 DISCHARGE DIAGNOSES: Active Hospital Problems Diagnosis Date Noted CVA (cerebral vascular accident) ([facility] 06/17/2025 Resolved Problems No resolved problems to display. CONSULTANTS: Consulting Providers Provider Service Specialty Richa Beyer MD Z Physical Medicine and Rehabilitation Physical Medicine & Rehabilitation MD Kassi Zuniga Nephrology Nephrology [facility] -- Cardiology Things needing follow up: - follow-up with Neurology in 3-4 weeks -follow-up with nephrology in 3-4 weeks -follow-up with primary care provider Hospital Course Dariel Peña a 85 y.o.male who was admitted for aphasia and lower extremity weakness. Symptoms with left-sided weakness and aphasia secondary to right P1/P2 occlusion status post TNK onadmission Acute encephalopathy suspect multifactorial from metabolic and neurology etiology -MRI brain without contrast did not show any evidence of restricted diffusion, small-vessel ischemic changes in the deep matter supra tentorial, focal area of signal abnormality in the best and whitematter of left parietal lobe without evidence of [...] in his anticoagulation Patient was discharged to care home facility at a stable condition Discharge Medications: [...] tablet (5 mg total) before bedtime. Do allthis for 30 days. midodrine 5 mg tablet Commonly known as: PROAMATINE Take 1 tablet (5 mg total) by mouth 3 (three) times a day for 30 days. CONTINUE taking these medications Instructions Last Dose Given Next Dose Due aspirin 81 mg Take 1 tablet (81 mg total) by mouth in the morning. coenzyme [id number] E 100-5 mg-unit capsule Take 100 mg [...] Your Medications These medications were sent to [facility]/pharmacy #[id number] AT [place] [id number] apixaban 5 mg tablet midodrine 5 mg [...] Extra Tubes. Procedure Abnormality Status --------- ------ [employer][id number]] Final result Please view results for these [...] results found. Discharge Instructions Disposition: Discharge to care home facility Condition: Stable Activity: activity as tolerated Diet: Adult diet Regular Texture; Fluid Restriction 1800 mL Adult diet Yanique Mcneill, STUDENT OUTREACH COORDINATOR-GARAGE DOOR SERVICE TECHNICIAN [address] [place] [id number] Follow up Information Provided to the Patient: Patient given copy of Discharge Instructions, patient hospital stay was discussed. No special instructions. I have spent 35 minutes coordinating and preparing this discharge. I have discussed the patient's hospitalization course, treatment plan and follow up instructions with patient and . I have answered all the patient's questions. Electronically signed by: ERIKA CRISOSTOMO MD [facility], Department of Internal Medicine 06/23/25 1:57 PM This note was partially dictated with the use of M*Modal.Please note that this dictation was completed with computer voice recognition software. Quite often unanticipated grammatical, syntax, homophones, and other interpretive errors are inadvertently transcribed by the computer software. Please disregard these errors. Please excuse any errors that have escaped final proofreading documented in this encounterC[facility]08-10-2025 History of Present illness Narrative* Toy Baez MD - 06/23/2025 7:38 AM EDT Images from the original note [...] PLATELETS [id number]/L [id number] 189 204 200 @RESUFAST(IRON,TIBC,FERRITIN,IRONSAT,FOLATE,[id number]))@ Results from last 7 days Lab Units [...] revealed right P1/ P2 occlusion, he received TNK,patient is confused Chronic hyponatremia due to SIADH, [...] of Inappropriate ADH secretion (SIADH). Sodium improving withthe salt tablets, urea packets and fluid restriction. 2. Acute Cerebrovascular accident with right-sided weakness: Neurology is following 3. Hypotension: On ProAmatine with holding parameters to maintain systolic blood pressure more [id number] and less than 120. 4. Atrial fibrillation: [...] For questions please call: Answering Service at [phone] Or Office at [phone] This note was created with the assistance of a speech-recognition program. Although the intention is to generate a document that actually reflects the content of the visit, no guarantees can be provided that every mistake has been identified and corrected by editing. * Erika Crisostomo MD - 06/22/2025 12:57 PM EDT Images from the original note were not included. [facility] Hospitalists Progress Note 06/22/2025 Patient Name: Dariel Zabala : 1940 Hospital Day: 6 Impression and plan: Symptoms with left-sided weakness and aphasia secondary to right P1/P2 occlusion status post TNK onadmission Acute encephalopathy suspect multifactorial from metabolic and neurology etiology -MRI brain without contrast did not show any evidence of restricted diffusion, small-vessel ischemic changes in the deep matter supra tentorial, focal area of signal abnormality in the best and whitematter of left parietal lobe without evidence of restricted diffusion possible subacute to chronic infarction -CTA revealed right P1/P2 occlusion -neurology following -on 06/21 patient had another mental status change and became confused while working with therapy ,possible syncopal event -heparin were held, stat CT [...] Tubes. Procedure Abnormality Status --------- ------ Lavender Top[[id number]] Final result Please view results for these [...] is confusing, or does not make sense, thisis likely due to a recognition error within the program which was not discovered during the provider s review. If you believe an error has occurred, please notify your provider s office at your earliest convenience, so we can correct any mistakes. * Toy Baez MD - 06/22/2025 8:59 AM EDT Images from the original note [...] Units 06/22/25 0221 06/21/25 0758 06/20/25 0844 06/19/2571706/18/25 1528 06/18/25 0343 WBC x10E9/L 5.6 5.3 6.5 7.9 -- 5.4 HEMOGLOBIN g/dL 12.5* 14.1 13.3 13.4 13.9 12.7* HEMATOCRIT % 36.3* 40.7 38.1* 38.7* -- 36.0* PLATELETS X10E9/L 212 189 204 200 214 251 @RESUFAST(IRON,TIBC,FERRITIN,IRONSAT,FOLATE,EQGATEWL20))@ Results from last 7 days Lab Units [...] revealed right P1/ P2 occlusion, he received TNK,patient is confused Chronic hyponatremia due to SIADH, [...] of Inappropriate ADH secretion (SIADH). Sodium improving withthe salt tablets and fluid restriction. 2. Acute [...] For questions please call: Answering Service at [phone] Or Office at [phone] This note was created with the assistance of a speech-recognition program. Although the intention is to generate a document that actually reflects the content of the visit, no guarantees can be provided that every mistake has been identified and corrected by editing. * Griselda Ramirez PharmD - 06/22/2025 8:21 AM EDT Pharmacokinetic Consult - Follow Up Warfarin Dosing [...] clinical progress daily. Griselda Ramirez PharmD Ext [phone] * Erika Crisostomo MD - 06/21/2025 3:47 PM EDT Images from the original note were not included. [facility] 06/21/2025 Patient Name: Dariel Zabala : 1940 Hospital Day: 5 Impression and plan: Symptoms with left-sided weakness and aphasia secondary to right P1/P2 occlusion status post TNK onadmission Acute encephalopathy suspect multifactorial from metabolic and neurology etiology -MRI brain without contrast did not show any evidence of restricted diffusion, small-vessel ischemic changes in the deep matter supra tentorial, focal area of signal abnormality in the best and whitematter of left parietal lobe without evidence of restricted diffusion possible subacute to chronic infarction -CTA revealed right P1/P2 occlusion -neurology following -on 06/21 patient had another mental status change and became confused while working with therapy ,possible syncopal event -heparin were held, stat CT [...] close to his baseline however he remains somewhatconfused. Only able to tell me his name [...] Tubes. Procedure Abnormality Status --------- ------ Lavender Top[[id number]] Final result Please view results for these [...] through the brain without IV contrast. Automatic exposurecontrol (AEC) was utilized. Findings: There is no [...] is confusing, or does not make sense, thisis likely due to a recognition error within the program which was not discovered during the provider s review. If you believe an error has occurred, please notify your provider s office at your earliest convenience, so we can correct any mistakes. * Maisha Vergara MD - 06/21/2025 1:06 PM EDT Images from the original note were not included. Nephrology Daily Progress Note The events of last night reviewed, chart and all new entries , new tests reviewed Impression/Plan: Acute CVA with right-sided weakness, CT angiogram revealed right P1/ P2 occlusion, he received TNK,patient is confused Chronic hyponatremia due to SIADH, [...] mg/dL 25 -- -- -- 12 -- 10 -- 10 10 CREATININE mg/dL 0.72 -- [...] from last 7 days Lab Units 06/21/25 07506/20/25 0844 06/19/25 0718 WBC x10E9/L 5.3 6.5 [...] revealed right P1/ P2 occlusion, he received TNK,patient is confused Chronic hyponatremia due to SIADH, [...] QUESTIONS FEEL FREE TO CALL: 1. OFFICE [phone] 2. ANSWERING SERVICE:[phone] YOU CAN CONTACT ME THROUGH [employer]URE [employer] DURING THE DAYTIME HOURS, IF NO RESPONSE AFTER 5 MINUTES CALL THE ANSWERING SERVICE This note was created with the assistance of a speech-recognition program. Although the intention is to generate a document that actually reflects the content of the visit, no guarantees can be provided that every mistake has been identified and corrected by editing. * Vinh Andre [facility] - 06/21/2025 9:56 AM EDT Pharmacokinetic Consult - Follow Up Warfarin Dosing [...] reportedly received TNK prior to arrival to [facility], heparin infusion bridge Drug-disease Interactions: - Could [...] patient's clinical progress daily. Vinh Andre PharmD, BCPS [id number] * Myrtle Jacome MD - 06/21/2025 7:52 AM EDT Physical Medicine and Rehabilitation Daily Progress Note Today's Date and Time: 06/21/2025, 7:53 AM Subjective/Chief complaint: CVA (cerebral vascular accident) (CMS-HCC) Principal Problem: CVA (cerebral vascular accident) (CMS-HCC) SUBJECTIVE Resting in bed, no new complaints, [...] found for: ALB , PROT , TBIL @LABRCNT([facility]:3)@ No results found for: CRP No results [...] Problem List Diagnosis CVA (cerebral vascular accident) ([facility]-H[facility]) Encephalopathy Recommendations/Plan: Continue PT, OT Max assist x2 bed mobility Family education Coumadin for AFib Consider care home facility Will follow up with you for rehab needs Myrtle Jacome MD * Noreen Myers [facility] - 06/20/2025 10:20 AM EDT Pharmacokinetic Consult - Follow Up Warfarin Dosing [...] clinical progress daily. Noreen Myers RPH Ext [phone] * Pat Araiza RN - 06/19/2025 8:52 PM EDT Images from the original note were not included. FOLLOW-UP: Post-Intensive Care Rounding Note Patient: Dariel Zabala : 1940 Age: 85 y.o. Length of Stay: 2 days Admission Diagnosis: CVA (cerebral vascular accident) ([facility]-HCC) [I63.9] Reviewing patient due to his recent transfer out from Intensive Care. Recorded vital signs are stable and the patient is not noted to be in any apparent distress. Telemetry and monitoring noted. Staff may call with any issues or concerns regarding his clinical presentation or stability. Thank you, Pat Araiza RN Rapid Response: [facility] * Rahat Mallory RPH - 06/19/2025 4:46 PM EDT Pharmacokinetic Consult - Anticoagulation Dosing Dariel Zabala [...] patient's clinical progress daily. RAHAT MALLORY RPH * Josselyn Lara RN - 06/19/2025 1:45 PM EDT Images from the original note were not included. FOLLOW-UP: Post-Intensive Care Rounding Note Patient: Dariel Zabala DOB: 1940 Age: 85 y.o. Length of Stay: 2 days Admission Diagnosis: CVA (cerebral vascular accident) ([facility]) [I63.9] Reviewing patient due to his recent transfer out from Intensive Care. Recorded vital signs are stable and the patient is not noted to be in any apparent distress. Telemetry and monitoring noted. Staff may call with any issues or concerns regarding his clinical presentation or stability. Thank you, JOSSELYN LARA RN Rapid Response: [facility] * Pat Araiza RN - 06/18/2025 8:32 PM EDT Images from the original note were not included. FOLLOW-UP: Post-Intensive Care Rounding Note Patient: Dariel Zabala DOB: 1940 Age: 85 y.o. Length of Stay: 1 days Admission Diagnosis: CVA (cerebral vascular accident) ([facility]) [I63.9] Reviewing patient due to his recent transfer out from Intensive Care. Recorded vital signs are stable and the patient is not noted to be in any apparent distress. Telemetry and monitoring noted. Staff may call with any issues or concerns regarding his clinical presentation or stability. Thank you, Pat Araiaz RN Rapid Response: [facility] documented in this encounterC[facility] Plan of care note * Plan of Care - Yonathan Joy RN - 06/23/2025 6:29 AM EDT Problem: Pain Goal: Patient goal is pain score less than 4, able to rest, and participant in treatment plan as appropriate Description: INTERVENTIONS: 1. Encourage patient or legal representative personal service to report early pain and ask for [...] per policy 9. Teach patient or legal representative personal service interventions for comforting 06/23/2025627 by ERIN Mcmanus Outcome: Progressing Note: Evaluation of progress towards goal: 06/23/2025617 by ERIN Mcmanus Outcome: Progressing Note: Evaluation [...] at the bedside 7. Instruct patient/ patient representative personal service about use of safety devices 8. Include patient/ patient representative personal service in decisions related to safety Outcome: Progressing [...] hygiene technique. 7. Identify and instruct patient/patient representative personal service in use of appropriate isolation precautionsfor identified infection/symptoms. 8. Provide and discuss with patient/patient representative personal service on educational MDRO sheet. 9. Encourage and monitor nutritional status daily and consult field return repairer if indicated. 10. Implement neutropenic guidelines as needed. Outcome: Progressing Note: Evaluation of progress towards goal: Standard precaution maintained Problem: Knowledge Deficit Goal: Patient/patient representative personal service demonstrates understanding of disease process, treatment plan,medications, and discharge instructions Description: INTERVENTIONS 1. Complete [...] supplement as ordered 13. Collaborate with clinical field return repairer 14. Include patient/ patient's representative personal service in decisions related to nutrition Outcome: Progressing [...] of consciousness, motor function, sensory function, and levelof assistance needed for ADLs 4. Monitor and [...] and report duration and description of seizure toLIP 10. If seizure occurs, turn patient to [...] develop effective communication strategies 4. Include patient/patient representative personal service in decisions related to communication Outcome: Progressing [...] anxiety both physical and emotional (heart palpitations, chestpain, shortness of breath, headaches, nausea, feeling jumpy, [...] Collaborate with ancillary departments 14. Include patient/patient representative personal service in decisions related to anxiety Outcome: Progressing [...] providing care 6. Collaborate with pastoral/spiritual care, director of social services, mental health counselor as needed. 7. Instruct patient on diversional activities such as physical activity, distraction, and deep breathing exercises to assist with coping 8. Involve patient's representative personal service in care Outcome: Progressing Note: Evaluation of [...] indicated by [facility] Assessment Goal: Patient should be free from fall Description: Interventions: 1. [place] to environment 2. Hourly rounds addressing the [...] non-skid footwear 11. Teach patient and patient representative personal service to maintain environment for safety and engage [...] (cane, walker) within reach 19. Request patient representative personal service bring adaptive equipment/mobility aids from home or obtain and provide as needed 20. Consult pharmacy regarding effects of med's affecting mobility, cognition, and alternatives 21. Obtain physician order for PT if risk factors associated with mobility are present 22. Obtain physician order for OT as appropriate 23. Utilize diversional activities 24. Educate patient and patient representative personal service how to maintain a safe environment during visitationtimes (notify nurse prior to leaving bedside) 25. Consider appropriateness of medical or non-medical radiation tech 26. Set up voiding schedule as appropriate (every 2 hours) Outcome: Progressing Note: Evaluation of progress towards goal: Fall bundles maintained [facility]08-09-[facility]25 Consult note* Kaye Geol MD - 06/22/2025 4:04 PM EDTAssociated Order(s): IP CONSULT TO CARDIOLOGY Images from the original note were not included. [facility] [address] [place] [address] HISTORY & PHYSICAL / CONSULT NOTE Dariel Zabala PCP: Yanique Mcneill, THOMAS-AVELINA Date of Admission: 06/17/2025 Date of Consultation: 06/22/2025 4:05 PM Consult for atrial fibrillation, bradycardia, intermittent pauses SUBJECTIVE History of Present Illness: Dariel Zabala is a 85 y.o. male w/ PMH RUFINO s/p R CEA, DMII, HLD, hypothyroidism, HTN, SIADH, recent TIA 05/2025, and permanent atrial fibrillation w/ [id number] on warfarin who presented 06/17/25 with RLE weakness and aphasia. He received TNK at OSH for R P1/P2 occlusion and subsequently transferred to [facility]. Head imaging w/o acute infarct, but did [...] appears mostly rate controlled, no pauses greater than5 seconds. He did have some rapid ventricular response which he was likely in the setting of activity given artifact with the strips. He was apparently given 1 dose of atenolol 12.5 mg but because ofbradycardia , this was subsequently discontinued. Previous Medical History: Past Medical History: Diagnosis Date At[place] BPH (benign prostatic hyperplasia) Broken nose CVA (cerebral vascular accident) [place] 06/17/2025 Diabetes [place] Epistaxis Hypertension Hyponatremia secondary to SIADH Hypothyroid [...] intravenous PRN Rocio Davis MD heparin infusion 26806 units/500 mL in 0.45% NaCl (50 units/mL [...] Daily Kendell Bender MD 1 patch at 831 magnesium sulfate IVPB 2000 mg/50 mL in [...] mg oral 3x daily around food Maisha Zuniga MD 1,000 mg at 06/22/25 1208 urea (URE-NA) packet 15 g 15 g oral BID Maisha Vergara MD 15 g at 06/22/25 0831 warfarin (COUMADIN) tablet 2.5 mg 2.5 mg oral Once per day on Tuesday Rocio Davis MD 2.5 mg at 06/20/25 1705 warfarin (COUMADIN) tablet 5 mg 5 mg oral Once per day on Tuesday Rocio Davis MD5 mg at 06/21/25 1549 Home Meds: Prior to Admission medications Medication Sig Start Date End Date Taking? Authorizing Provider aspirin 81 mg Take 1 tablet (81 mg total) by mouth in the morning. Yes Not In System Ref Prov atenoloL (TENORMIN) 25 mg tablet Take 0.5 tablets (12.5 mg total) by mouth in the morning. 05/20/25 Yes Not In System Ref Prov coenzyme N62-nhaewca E 100-5 mg-unit capsule Take 100 mg by mouth in the morning. Yes Not In SystemRef Prov finasteride (PROSCAR) 5 mg tablet Take [...] Extremities: No edema ASSESSMENT Permanent atrial fibrillation, [id number], on heparin gtt/warfarin L CVA s/p [...] Cardiology perspective, we will sign off. Please callback with any additional questions. KAYE GOEL MD This note was completed using a voice client support professional system. Every effort was made to ensure accuracy. However, inadvertent computerized client support professional errors may be present. [employer] Work Phone: [phone] Consult note* Kaye Goel MD - 06/22/2025 4:04 PM EDTAssociated Order(s): IP CONSULT TO CARDIOLOGY Images from the original note were not included. [facility] [address] [place] [address] HISTORY & PHYSICAL / CONSULT NOTE Dariel Valeriano Zabala PCP: TANYA Lozano Date of Admission: 06/17/2025 Date of Consultation: 06/22/2025 4:05 PM Consult for atrial fibrillation, bradycardia, intermittent pauses SUBJECTIVE History of Present Illness: Dariel Bal Vj is a 85 y.o. male w/ PMH RUFINO s/p R CEA, DMII, HLD, hypothyroidism, HTN, SIADH, recent TIA 05/2025, and permanent atrial fibrillation w/ [id number] 7 on warfarin who presented 06/17/25 with RLE weakness and aphasia. He received TNK at OSH for R P1/P2 occlusion and subsequently transferred to [facility]. Head imaging w/o acute infarct, but did [...] appears mostly rate controlled, no pauses greater than5 seconds. He did have some rapid ventricular response which he was likely in the setting of activity given artifact with the strips. He was apparently given 1 dose of atenolol 12.5 mg but because ofbradycardia , this was subsequently discontinued. Previous Medical History: Past Medical History: Diagnosis Date Atrial [place] BPH (benign prostatic hyperplasia) Broken nose CVA (cerebral vascular accident) [place] 06/17/2025 Diabetes [place] Epistaxis Hypertension Hyponatremia secondary to SIADH Hypothyroid [...] intravenous PRN Rocio Davis MD heparin infusion 34210 units/500 mL in 0.45% NaCl (50 units/mL [...] Daily Kendell Bender MD 1 patch at 831 magnesium sulfate IVPB 2000 mg/50 mL in [...] Nightly Rocio Davis MD 5 mg at 06/21/252030 sodium phosphate 20 mmol in sodium chloride [...] mg oral 3x daily around food Maisha Zuniga MD 1,000 mg at 06/22/25 1208 urea (URE-NA) packet 15 g 15 g oral BID Maisha Vergara MD 15 g at 06/22/25 0831 warfarin (COUMADIN) tablet 2.5 mg 2.5 mg oral Once per day on Tuesday Rocio Davis MD 2.5 mg at 06/20/25 1705 warfarin (COUMADIN) tablet 5 mg 5 mg oral Once per day on Tuesday Rocio Davis MD5 mg at 06/21/25 1549 Home Meds: Prior to Admission medications Medication Sig Start Date End Date Taking? Authorizing Provider aspirin 81 mg Take 1 tablet (81 mg total) by mouth in the morning. Yes Not In System Ref Prov atenoloL (TENORMIN) 25 mg tablet Take 0.5 tablets (12.5 mg total) by mouth in the morning. 05/20/25 Yes Not In System Ref Prov coenzyme B65-nqztkmy E 100-5 mg-unit capsule Take 100 mg by mouth in the morning. Yes Not In SystemRef Prov finasteride (PROSCAR) 5 mg tablet Take [...] Extremities: No edema ASSESSMENT Permanent atrial fibrillation, [id number] 8, on heparin gtt/warfarin L CVA s/p [...] Cardiology perspective, we will sign off. Please callback with any additional questions. KAYE GOEL MD This note was completed using a voice client support professional system. Every effort was made to ensure accuracy. However, inadvertent computerized client support professional errors may be present. * Richa Beyer MD - 06/20/2025 1:56 PM EDTAssociated Order(s): IP CONSULT TO PHYSICAL MEDICINE REHAB Images from the original note were not included. PHYSICAL MEDICINE AND REHABILITATION CONSULT Date of Admission: 06/17/2025 1:38 PM Referring Physician: Mirian Carranza MD PCP: Yanique Mcneill APRN-AVELINA Chief Compliant: Principal Problem: CVA (cerebral vascular accident) ([facility]) Reason for Consultation: Rehabilitation Candidacy and Rehab Manager [facility] Providers Provider Service Specialty MD [...] head no acute process. CTA showed right P1P2 occlusion. INR was 1.25 TNK was given to the patient and transferred to [facility]. CT perfusion study showed deficit in anterior [...] heartbeat Respiratory ROS: positive for - shortness ofbreath Neurological ROS: positive for - gait disturbance and weakness Musculoskeletal ROS: positivefor - gait disturbance and muscular weakness PMH Past Medical History: Diagnosis Date Atrial fibrillation [place] [place] [place] BPH (benign prostatic hyperplasia) Broken nose CVA (cerebral vascular accident) [place] [place] [place] 06/17/2025 Diabetes [place] [place] Epistaxis Hypertension Hyponatremia secondary to SIADH Hypothyroid [...] temperature 36.6 C (97.9 F), temperature source Oral,resp. rate 16, height 177.8 cm (5' 10 [...] End: 06:30 06/20/2025 This is a standard [facility] EEG monitoring reportusing scalp and ear electrodes in the 10-20 international System. Recording was reviewed with multiple reformatted montages. Quantitative digital analysis data was utilized as needed. Technical Description: No well-defined posterior dominant rhythm was noted. The anterior posterior gradient was absent. The background was continuous and symmetric and consisted of 20-40 uv amplitude polymorphic admi xed theta and delta waves. Variability was absent. Reactivity was indeterminate. Sleep changes werenot noted. No definite interictal epileptiform activity in the form of spike or sharp wave is noted. Clinical Interpretation: This EEG is abnormal due to the presence of moderate to severe generalized background slowing consistent with moderate to severe bihemispheric cerebral dysfunction that may be seen in postictal states, hypoxic, toxic or metabolic abnormalities, sedative medications use or primary neurological disorders. Yaquelin Esparza MD Juvenile Detention Officer Neurology/Neurophysiology [facility] Recent Results (from the past [...] Tubes. Procedure Abnormality Status --------- ------ PST TOP[[id number]] Final result Please view results for these [...] Therapy Feeding: Eating Assistance: Total assist (06/19/25 140) Grooming: Grooming Assistance: Max assist (06/19/25 140) Bathing:Bathing/Showering Assistance: Max assist (06/19/25 1409) Dressing: Toileting: Activity limitations: Activity Tolerance Endurance: Tolerates <30 minutes activity WITHOUT vital sign changes (06/19/25 1410) Other: room air (06/19/25 1409) Assessment/Plan Principal Problem: CVA (cerebral vascular accident) ([facility]) MRI is negative for ischemia Debility Gait [...] you for the referral. Richa Beyer MD * Maisha Vergara MD - 06/20/2025 12:19 PM EDT Images from the original note were [...] by mouth in the morning. Taking coenzyme N17-eobxzgo E 100-5 mg-unit capsule Take 100 mg [...] from last 7 days Lab Units 06/20/25 0806/19/2571706/18/25 1528 06/18/25 0343 WBC x10E9/L 6.5 7.9 -- 5.4 HEMOGLOBIN g/dL 13.3 13.4 13.9 12.7* HEMATOCRIT % 38.1* 38.7* -- 36.0* PLATELETS X10E9/L 204 200 214 251 Results from last 7 days Lab Units 06/19/2571706/18/25 1528 06/17/25 1653 MAGNESIUM mg/dL 2.3 1.6* [...] anticoagulation MAISHA VERGARA MD [facility] ANY QUESTIONS FEEL FREE TO CALL: 1. OFFICE [phone] 2. ANSWERING SERVICE:[phone] YOU CAN CONTACT ME THROUGH [employer] DURING THE DAYTIME HOURS, IF NO RESPONSE AFTER 5 MINUTES CALL THE ANSWERING SERVICE This note was created with the assistance of a speech-recognition program. Although the intention is to generate a document that actually reflects the content of the visit, no guarantees can be provided that every mistake has been identified and corrected by editing. documented in this encounterC[facility]-09-20[facility] Plan of care note * Plan of Care - Debra Huggins RN - 06/22/2025 2:18 PM EDT Problem: Pain Goal: Patient goal is pain score less than 4, able to rest, and participant in treatment plan as appropriate Description: INTERVENTIONS: 1. Encourage patient or legal representative personal service to report early pain and ask for [...] per policy 9. Teach patient or legal representative personal service interventions for comforting Outcome: Progressing Note: Evaluation [...] at the bedside 7. Instruct patient/ patient representative personal service about use of safety devices 8. Include patient/ patient representative personal service in decisions related to safety Outcome: Progressing [...] hygiene technique. 7. Identify and instruct patient/patient representative personal service in use of appropriate isolation precautionsfor identified infection/symptoms. 8. Provide and discuss with patient/patient representative personal service on educational MDRO sheet. 9. Encourage and monitor nutritional status daily and consult field return repairer if indicated. 10. Implement neutropenic guidelines as needed. Outcome: Progressing Note: Evaluation of progress towards goal: continue to monitor labs, vitals, tele, IV site Problem: Knowledge Deficit Goal: Patient/patient representative personal service demonstrates understanding of disease process, treatment plan,medications, and discharge instructions Description: INTERVENTIONS 1. Complete [...] supplement as ordered 13. Collaborate with clinical field return repairer 14. Include patient/ patient's representative personal service in decisions related to nutrition Outcome: Progressing [...] of consciousness, motor function, sensory function, and levelof assistance needed for ADLs 4. Monitor and [...] and report duration and description of seizure toLIP 10. If seizure occurs, turn patient to [...] develop effective communication strategies 4. Include patient/patient representative personal service in decisions related to communication Outcome: Progressing Note: Evaluation of progress towards goal: [place], speak loudly and understands Problem: Potential for [...] towards goal: aspiration precautions observed; tolerating regular dietwell Problem: Anxiety Goal: Anxiety is at manageable level Description: Patient's goal is: INTERVENTIONS 1. Assess and monitor patient's anxiety level 2. Monitor for signs and symptoms of anxiety both physical and emotional (heart palpitations, chestpain, shortness of breath, headaches, nausea, feeling jumpy, [...] Collaborate with ancillary departments 14. Include patient/patient representative personal service in decisions related to anxiety Outcome: Progressing [...] providing care 6. Collaborate with pastoral/spiritual care, director of social services, mental health counselor as needed. 7. Instruct patient on diversional activities such as physical activity, distraction, and deep breathing exercises to assist with coping 8. Involve patient's representative personal service in care Outcome: Progressing Note: Evaluation of [...] Progressing Note: Evaluation of progress towards goal: [place] at [place] Problem: Moderate - High Risk Fall Score Description: [place] Fall Score of =/> 25 or indicated by [facility] Assessment Goal: Patient should be free from fall Description: Interventions: 1. [place] to environment 2. Hourly rounds addressing the [...] non-skid footwear 11. Teach patient and patient representative personal service to maintain environment for safety and engage [...] (cane, walker) within reach 19. Request patient representative personal service bring adaptive equipment/mobility aids from home or obtain and provide as needed 20. Consult pharmacy regarding effects of med's affecting mobility, cognition, and alternatives 21. Obtain physician order for PT if risk factors associated with mobility are present 22. Obtain physician order for OT as appropriate 23. Utilize diversional activities 24. Educate patient and patient representative personal service how to maintain a safe environment during visitationtimes (notify nurse prior to leaving bedside) 25. Consider appropriateness of medical or non-medical radiation tech 26. Set up voiding schedule as appropriate (every 2 hours) Outcome: Progressing Note: Evaluation of progress towards goal: no falls; syncopal episode per notes 06/21; up with assistonly; high fall risk - maintain precautions [facility]08-09-2025 Progress note* Discharge Planning Note - Norma Ritter - 06/22/2025 12:42 PM EDT DISCHARGE PLANNING NOTE Prior Auth approved for admission to : [facility] (P# ; F# ) Approval # [id number] Valid for Dates: 06/22/2025 - 06/28/2025 [facility]08-09-2025 Progress note* Discharge Planning Note - Norma Ritter - 06/22/2025 10:39 AM EDT DISCHARGE PLANNING NOTE Prior auth submitted to: [employer] Via: Availity On behalf of : [facility] (P# ; F# ) Ref# [id number] [facility]08-09-2025 Progress note* Discharge Planning Note - CHARLES Lee - 06/22/2025 10:15 AM EDT DISCHARGE PLANNING NOTE Case discussed in daily transition rounds and chart reviewed by CN. [facility]charge Plan remains: [facility] accepting referral. Social work contacted to inform of above and she was pleased with the news. is looking for patient's SSN. Social work task [facility] to start precert. CN will continue to follow and is available should any further needs arise. - CHARLES LEE 06/22/25 10:15 AM Insurance approved SNF stay. Patient is tentatively discharged tomorrow. Social work sent a messageto [facility] to inform of tentative discharge date. Social work contacted to inform of above and she is agreeable to transition plan. HENS started. - CHARLES LEE 06/22/25 2:54 PM [facility]08-09-2025 Plan of care note* Plan of Care - Yonathan Joy RN - 06/22/2025 3:45 AM EDT Problem: Pain Goal: Patient goal is pain score less than 4, able to rest, and participant in treatment plan as appropriate Description: INTERVENTIONS: 1. Encourage patient or legal representative personal service to report early pain and ask for [...] per policy 9. Teach patient or legal representative personal service interventions for comforting Outcome: Progressing Note: Evaluation [...] at the bedside 7. Instruct patient/ patient representative personal service about use of safety devices 8. Include patient/ patient representative personal service in decisions related to safety Outcome: Progressing [...] hygiene technique. 7. Identify and instruct patient/patient representative personal service in use of appropriate isolation precautionsfor identified infection/symptoms. 8. Provide and discuss with patient/patient representative personal service on educational MDRO sheet. 9. Encourage and monitor nutritional status daily and consult field return repairer if indicated. 10. Implement neutropenic guidelines as needed. Outcome: Progressing Note: Evaluation of progress towards goal: Pt has no s/s of infection, standard precaution maintained Problem: Knowledge Deficit Goal: Patient/patient representative personal service demonstrates understanding of disease process, treatment plan,medications, and discharge instructions Description: INTERVENTIONS 1. Complete [...] supplement as ordered 13. Collaborate with clinical field return repairer 14. Include patient/ patient's representative personal service in decisions related to nutrition Outcome: Progressing [...] of consciousness, motor function, sensory function, and levelof assistance needed for ADLs 4. Monitor and [...] and report duration and description of seizure toLIP 10. If seizure occurs, turn patient to [...] develop effective communication strategies 4. Include patient/patient representative personal service in decisions related to communication Outcome: Progressing [...] anxiety both physical and emotional (heart palpitations, chestpain, shortness of breath, headaches, nausea, feeling jumpy, [...] Collaborate with ancillary departments 14. Include patient/patient representative personal service in decisions related to anxiety Outcome: Progressing [...] providing care 6. Collaborate with pastoral/spiritual care, director of social services, mental health counselor as needed. 7. Instruct patient on diversional activities such as physical activity, distraction, and deep breathing exercises to assist with coping 8. Involve patient's representative personal service in care Outcome: Progressing Note: Evaluation of [...] Moderate - High Risk Fall Score Description: [place] Fall Score of =/> 25 or indicated by [facility] Assessment Goal: Patient should be free from fall Description: Interventions: 1. [place] to environment 2. Hourly rounds addressing the [...] non-skid footwear 11. Teach patient and patient representative personal service to maintain environment for safety and engage [...] (cane, walker) within reach 19. Request patient representative personal service bring adaptive equipment/mobility aids from home or obtain and provide as needed 20. Consult pharmacy regarding effects of med's affecting mobility, cognition, and alternatives 21. Obtain physician order for PT if risk factors associated with mobility are present 22. Obtain physician order for OT as appropriate 23. Utilize diversional activities 24. Educate patient and patient representative personal service how to maintain a safe environment during visitationtimes (notify nurse prior to leaving bedside) 25. Consider appropriateness of medical or non-medical radiation tech 26. Set up voiding schedule as appropriate (every 2 hours) Outcome: Progressing Note: Evaluation of progress towards goal: Fall bundles maintained [facility] [id number] Plan of care note* Plan of Care - Lauren Gaona RN - 06/21/2025 6:18 PM EDT Problem: Knowledge Deficit Goal: Patient/patient representative personal service demonstrates understanding of disease process, treatment plan,medications, and discharge instructions Description: INTERVENTIONS 1. Complete [...] of consciousness, motor function, sensory function, and levelof assistance needed for ADLs 4. Monitor and [...] and report duration and description of seizure toLIP 10. If seizure occurs, turn patient to [...] for adl's Problem: Knowledge Deficit Goal: Patient/patient representative personal service demonstrates understanding of disease process, treatment plan,medications, and discharge instructions Description: INTERVENTIONS 1. Complete [...] of consciousness, motor function, sensory function, and levelof assistance needed for ADLs 4. Monitor and [...] and report duration and description of seizure toLIP 10. If seizure occurs, turn patient to [...] Description: INTERVENTIONS: 1. Encourage patient or legal representative personal service to report early pain and ask for [...] per policy 9. Teach patient or legal representative personal service interventions for comforting Outcome: Progressing Note: Evaluation [...] at the bedside 7. Instruct patient/ patient representative personal service about use of safety devices 8. Include patient/ patient representative personal service in decisions related to safety Outcome: Progressing [...] hygiene technique. 7. Identify and instruct patient/patient representative personal service in use of appropriate isolation precautionsfor identified infection/symptoms. 8. Provide and discuss with patient/patient representative personal service on educational MDRO sheet. 9. Encourage and monitor nutritional status daily and consult field return repairer if indicated. 10. Implement neutropenic guidelines as [...] supplement as ordered 13. Collaborate with clinical field return repairer 14. Include patient/ patient's representative personal service in decisions related to nutrition Outcome: Progressing [...] develop effective communication strategies 4. Include patient/patient representative personal service in decisions related to communication Outcome: Progressing [...] anxiety both physical and emotional (heart palpitations, chestpain, shortness of breath, headaches, nausea, feeling jumpy, [...] Collaborate with ancillary departments 14. Include patient/patient representative personal service in decisions related to anxiety Outcome: Progressing [...] providing care 6. Collaborate with pastoral/spiritual care, director of social services, mental health counselor as needed. 7. Instruct patient on diversional activities such as physical activity, distraction, and deep breathing exercises to assist with coping 8. Involve patient's representative personal service in care Outcome: Progressing Note: Evaluation of [...] indicated by [facility] Assessment Goal: Patient should be free from fall Description: Interventions: 1. [place] to environment 2. Hourly rounds addressing the [...] non-skid footwear 11. Teach patient and patient representative personal service to maintain environment for safety and engage [...] (cane, walker) within reach 19. Request patient representative personal service bring adaptive equipment/mobility aids from home or obtain and provide as needed 20. Consult pharmacy regarding effects of med's affecting mobility, cognition, and alternatives 21. Obtain physician order for PT if risk factors associated with mobility are present 22. Obtain physician order for OT as appropriate 23. Utilize diversional activities 24. Educate patient and patient representative personal service how to maintain a safe environment during visitationtimes (notify nurse prior to leaving bedside) 25. Consider appropriateness of medical or non-medical radiation tech 26. Set up voiding schedule as appropriate [...] of consciousness, motor function, sensory function, and levelof assistance needed for ADLs 4. Monitor and [...] and report duration and description of seizure toLIP 10. If seizure occurs, turn patient to [...] Description: INTERVENTIONS: 1. Encourage patient or legal representative personal service to report early pain and ask for [...] per policy 9. Teach patient or legal representative personal service interventions for comforting Outcome: Progressing Note: Evaluation [...] at the bedside 7. Instruct patient/ patient representative personal service about use of safety devices 8. Include patient/ patient representative personal service in decisions related to safety Outcome: Progressing [...] hygiene technique. 7. Identify and instruct patient/patient representative personal service in use of appropriate isolation precautionsfor identified infection/symptoms. 8. Provide and discuss with patient/patient representative personal service on educational MDRO sheet. 9. Encourage and monitor nutritional status daily and consult field return repairer if indicated. 10. Implement neutropenic guidelines as [...] supplement as ordered 13. Collaborate with clinical field return repairer 14. Include patient/ patient's representative personal service in decisions related to nutrition Outcome: Progressing [...] develop effective communication strategies 4. Include patient/patient representative personal service in decisions related to communication Outcome: Progressing [...] anxiety both physical and emotional (heart palpitations, chestpain, shortness of breath, headaches, nausea, feeling jumpy, [...] Collaborate with ancillary departments 14. Include patient/patient representative personal service in decisions related to anxiety Outcome: Progressing [...] providing care 6. Collaborate with pastoral/spiritual care, director of social services, mental health counselor as needed. 7. Instruct patient on diversional activities such as physical activity, distraction, and deep breathing exercises to assist with coping 8. Involve patient's representative personal service in care Outcome: Progressing Note: Evaluation of [...] indicated by [facility] Assessment Goal: Patient should be free from fall Description: Interventions: 1. [place] to environment 2. Hourly rounds addressing the [...] non-skid footwear 11. Teach patient and patient representative personal service to maintain environment for safety and engage [...] (cane, walker) within reach 19. Request patient representative personal service bring adaptive equipment/mobility aids from home or obtain and provide as needed 20. Consult pharmacy regarding effects of med's affecting mobility, cognition, and alternatives 21. Obtain physician order for PT if risk factors associated with mobility are present 22. Obtain physician order for OT as appropriate 23. Utilize diversional activities 24. Educate patient and patient representative personal service how to maintain a safe environment during visitationtimes (notify nurse prior to leaving bedside) 25. Consider appropriateness of medical or non-medical radiation tech 26. Set up voiding schedule as appropriate (every 2 hours) Outcome: Progressing Note: Evaluation of progress towards goal: free of fall this shift Problem: Pain Goal: Patient goal is pain score less than 4, able to rest, and participant in treatment plan as appropriate Description: INTERVENTIONS: 1. Encourage patient or legal representative personal service to report early pain and ask for [...] per policy 9. Teach patient or legal representative personal service interventions for comforting Outcome: Progressing Note: Evaluation [...] at the bedside 7. Instruct patient/ patient representative personal service about use of safety devices 8. Include patient/ patient representative personal service in decisions related to safety Outcome: Progressing [...] at the bedside 7. Instruct patient/ patient representative personal service about use of safety devices 8. Include patient/ patient representative personal service in decisions related to safety Outcome: Progressing [...] hygiene technique. 7. Identify and instruct patient/patient representative personal service in use of appropriate isolation precautionsfor identified infection/symptoms. 8. Provide and discuss with patient/patient representative personal service on educational MDRO sheet. 9. Encourage and monitor nutritional status daily and consult field return repairer if indicated. 10. Implement neutropenic guidelines as [...] supplement as ordered 13. Collaborate with clinical field return repairer 14. Include patient/ patient's representative personal service in decisions related to nutrition Outcome: Progressing [...] develop effective communication strategies 4. Include patient/patient representative personal service in decisions related to communication Outcome: Progressing [...] anxiety both physical and emotional (heart palpitations, chestpain, shortness of breath, headaches, nausea, feeling jumpy, [...] as caffeine and (more content not included)... [facility] [id number] Progress note* Discharge Planning Note - Martina Mckeon - 06/21/2025 3:45 PM EDT DISCHARGE PLANNING NOTE [facility]erral [facility] to [facility]P# ; F[facility] ) [facility] [id number] Progress note* Discharge Planning Note - Rohini Mcintyre RN - 06/21/2025 2:29 PM EDT 06/21/25 1427 Services Requested Patient expects to be discharged to: SNF Does the patient wish to have family/friend/caregiver involved in their discharge planning? Yes Does the patient plan to return home to a community setting? No, patient to discharge to facility-based provider. See Discharge Disposition Discharge Disposition SNF Facility/Service Name NA SNF Name [facility] Does the patient need discharge transportation arranged? Yes Transportation Arranged Ambulance Mobility issues discussed with transportation provider Yes Patient choice offered Yes List Provided Yes [facility] List Provided Intermediate Facility Financial Disclosure Provided for In-Network Referral Yes DISCHARGE PLANNING NOTE CN spoke w pts , SNF choice is [facility]. She did n ot have a 2nd choice. CN asked her to review list for dditional choices. CN tasked for referral to [facility]. Barriers: SNFaccept. Will need precert. CTbrain.Rohini Mcintyre RN [facility]08-08-2025 Nurse Note* Lauren Gaona RN - 06/21/2025 1:[address] Crisostomo, restart the heparin drip at this time, CTB negative. Restart at prior rate. Recheck antixa in 6 hours. [facility]08-08-2025 Progress note* Discharge Planning Note - Rohini Mcintyre RN - 06/21/2025 12:44 PM EDT DISCHARGE PLANNING NOTE PT/OT rec SNF. CN called and left Voicemail for pts . Pt not appropriate for [facility]. Need SNF choices. CN also sent SNF list Via [facility]port to pts cell phone to select choices. Await response. Rohini Mcintyre RN [facility]08-08-2025 Progress note* PT/OT/OUTREACH REP - LU Enriquez - 06/21/2025 9:58 AM EDT Occupational Therapy Re-Evaluation Discharge Recommendations for Safe Patient Transition Discharge Recommendations: Post acute - moderate Post Acute Moderate Rehab Needs: Recommend moderate intensity rehab, Tolerate 1- 2 hrs of therapy 3-5 days/wk, Subacute or chronic functional impairment Current Impairments Informing Therapy Recommendation: Ambulation status/safety, Cognition, Fall risk, ADL status, Endurance level, Communication needs Modified [place] Level of Disability: Moderately severe [...] None Scoring Daily Activity Raw Score: 14 [facility] Code Modifier: CK Modified chip index: 5/20 Occupational Profile Patient seen for OT eval on 06-19-2025. Patient now seen for OT re-eval to update goals due to improved level of alertness and ability to participate in therapy. Patient admitted with left side weakness and aphasia. 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 History of A-fib on coumadin and diabetic. Continue to recommend care home facility. Patient with episode of decreased responsiveness with listing to the left while on commode for 1-2 minutes. Once alert patient was nauseated. RNLauren called to room. Patient assisted from stephanie gomes and MD in room. See below for past medical and past surgical history. Past Medical History: Diagnosis Date Atrial [place] [place] BPH (benign prostatic hyperplasia) Broken nose CVA [place]cerebral vascular [place] [place] 06/17/2025 Diabetes [place] [place] Epistaxis Hypertension Hyponatremia secondary to SIADH Hypothyroid [...] Equipment: waker, chair alarm, gait belt, telemetry. Telemetry/Dexigraph Operator: Yes Oxygen Used: room air Other: (S) [...] Patient was not able to verbalize or followcommands. Lauren KHAN called. Patient after 1-2 minutes aroused. patient was able to answer his name,recall his sons names. patient moved from toilet [...] Patient was not able to verbalize or followcommands. Lauren KHAN called. Patient after 1-2 minutes aroused. patient was able to answer his name,recall his sons names. patient moved from toilet [...] Patient will perform toilet transfers with Modified [place] Dates: Start: 06/21/25 Expected End: 07/19/25 Description: [...] problems. Principal Problem: CVA (cerebral vascular accident) ([facility]08-08-2025 Progress note* PT/OT/OUTREACH REP - Ayaan Campos, PT - 06/21/2025 9:56 AM EDT Physical Therapy Re-Evaluation Discharge Recommendations for Safe Patient Transition Discharge Recommendations: Post acute - moderate Post Acute Moderate Rehab Needs: Recommend moderate intensity rehab, Tolerate 1- 2 hrs of therapy 3-5 days/wk, Subacute or [...] Past Medical History: Diagnosis Date Atrial [place] [place] BPH (benign prostatic hyperplasia) Broken nose CVA [place]cerebral vascular [place] [place] 06/17/2025 Diabetes [place] [place] Epistaxis Hypertension Hyponatremia secondary to SIADH Hypothyroid Lumbar spondylosis TIA (transient ischemic attack) Past Surgical History: Procedure Laterality Date NECK SURGERY plate in neck per Modified [place] Level of Disability: Moderately severe disability 0= [...] gait belt, wheeled walker, IV, chair/bed alarm Telemetry/Dexigraph Operator: Yes Oxygen Used: room air Other: (S) fall risk, confusion. Episode of decreased responsiveness during this session Subjective Physical Therapy Comments: Pt more alert this date, slow to respond and oriented to self only. Ableto recall where he lives and his 's [...] problems. Principal Problem: CVA (cerebral vascular accident) ([facility]) [facility]08-08-2025 Nurse Note* Lauren Gaona RN - 06/21/2025 9:27 AM EDT In chair, alert and responding. BP 98/65. Dr Crisostomo returns page and updated on events. [facility]08-08-2025 Nurse Note* Lauren Gaona RN - 06/21/2025 9:22 AM EDT Working with physical and occupational therapy. Ambulated to bathroom, had been alert and conversing, suddenly became unresponsive, staring and leaning to left. Resolved after 2-3 minutes, then more alert and was able to state name. Assisted to chair. Dr Kranthi gay. [facility]08-07-2025 Plan of care note* Plan of Care - Nicole Sparks RN - 06/20/2025 11:40 PM EDT Problem: Pain Goal: Patient goal is pain score less than 4, able to rest, and participant in treatment plan as appropriate Description: INTERVENTIONS: 1. Encourage patient or legal representative personal service to report early pain and ask for [...] per policy 9. Teach patient or legal representative personal service interventions for comforting Outcome: Progressing Note: Evaluation [...] at the bedside 7. Instruct patient/ patient representative personal service about use of safety devices 8. Include patient/ patient representative personal service in decisions related to safety Outcome: Progressing [...] hygiene technique. 7. Identify and instruct patient/patient representative personal service in use of appropriate isolation precautionsfor identified infection/symptoms. 8. Provide and discuss with patient/patient representative personal service on educational MDRO sheet. 9. Encourage and monitor nutritional status daily and consult field return repairer if indicated. 10. Implement neutropenic guidelines as needed. Outcome: Progressing Note: Evaluation of progress towards goal: No s/s of infection at this time Problem: Knowledge Deficit Goal: Patient/patient representative personal service demonstrates understanding of disease process, treatment plan,medications, and discharge instructions Description: INTERVENTIONS 1. Complete [...] indicated by [facility] Assessment Goal: Patient should be free from fall Description: Interventions: 1. [place] to environment 2. Hourly rounds addressing the [...] non-skid footwear 11. Teach patient and patient representative personal service to maintain environment for safety and engage [...] (cane, walker) within reach 19. Request patient representative personal service bring adaptive equipment/mobility aids from home or obtain and provide as needed 20. Consult pharmacy regarding effects of med's affecting mobility, cognition, and alternatives 21. Obtain physician order for PT if risk factors associated with mobility are present 22. Obtain physician order for OT as appropriate 23. Utilize diversional activities 24. Educate patient and patient representative personal service how to maintain a safe environment during visitationtimes (notify nurse prior to leaving bedside) 25. Consider appropriateness of medical or non-medical radiation tech 26. Set up voiding schedule as appropriate (every 2 hours) Outcome: Progressing Note: Evaluation of progress towards goal: pt free from fall at this time Problem: Knowledge Deficit Goal: Patient/patient representative personal service demonstrates understanding of disease process, treatment plan,medications, and discharge instructions Description: INTERVENTIONS 1. Complete [...] of consciousness, motor function, sensory function, and levelof assistance needed for ADLs 4. Monitor and [...] and report duration and description of seizure toLIP 10. If seizure occurs, turn patient to [...] alert and oriented to person and age [facility]08-07-2025 Progress note* Situational Awareness - Gary Coronado MD - 06/20/2025 5:[address] [facility] Transfer Accept Note I have received a request for transfer of primary service for this patient from the neurology team care of neurology attending, clinical handoff received from Neurology resident. [facility] will assume careas primary team of this patient 7:00 a.m. 06/21/2025. [facility] Work Phone: [phone] Plan of care note* Plan of Care - Noreen Myers RPH - 06/20/2025 3:45 PM EDT Problem: Medication Description: If medication is necessary, [...] also shows no change in renal function. [employer] [id number] Consult note* Richa Beyer MD - 06/20/2025 1:56 PM EDTAssociated Order(s): IP CONSULT TO PHYSICAL MEDICINE REHAB Images from the original note were not included. PHYSICAL MEDICINE AND REHABILITATION CONSULT Date of Admission: 06/17/2025 1:38 PM Referring Physician: Mirian Carranza MD PCP: TANYA Lozano Chief Compliant: Principal Problem: [place] (cerebral vascular [place]) [place] Reason for Consultation: Rehabilitation Candidacy and Rehab Manager [facility] Consulting Providers Provider Service Specialty MD [...] head no acute process. CTA showed right P1P2 occlusion. INR was 1.25 TNK was given to the patient and transferred to [facility]. CT perfusion study showed deficit in anterior [...] heartbeat Respiratory ROS: positive for - shortness ofbreath Neurological ROS: positive for - gait disturbance and weakness Musculoskeletal ROS: positivefor - gait disturbance and muscular weakness PMH Past Medical History: Diagnosis Date Atrial fibrillation [place] BPH (benign prostatic hyperplasia) Broken nose CVA (cerebral vascular accident) [place] 06/17/2025 Diabetes [place] Epistaxis Hypertension Hyponatremia secondary to SIADH Hypothyroid [...] temperature 36.6 C (97.9 F), temperature source Oral,resp. rate 16, height 177.8 cm (5' 10 [...] End: 06:30 06/20/2025 This is a standard [facility] EEG monitoring reportusing scalp and ear electrodes in the 10-20 international System. Recording was reviewed with multiple reformatted montages. Quantitative digital analysis data was utilized as needed. Technical Description: No well-defined posterior dominant rhythm was noted. The anterior posterior gradient was absent. The background was continuous and symmetric and consisted of 20-40 uv amplitude polymorphic admi xed theta and delta waves. Variability was absent. Reactivity was indeterminate. Sleep changes werenot noted. No definite interictal epileptiform activity in the form of spike or sharp wave is noted. Clinical Interpretation: This EEG is abnormal due to the presence of moderate to severe generalized background slowing consistent with moderate to severe bihemispheric cerebral dysfunction that may be seen in postictal states, hypoxic, toxic or metabolic abnormalities, sedative medications use or primary neurological disorders. Yaquelin Esparza MD Juvenile Detention Officer Neurology/Neurophysiology [facility] Recent Results (from the past [...] Tubes. Procedure Abnormality Status --------- ------ PST TOP[[id number]] Final result Please view results for these [...] to push back and to the left. (06/19/25 1409) Other: not appropriate at this time (08/06/25 1410) Activity limitations: Activity Tolerance Endurance: Tolerates <30 minutes activity WITHOUT vital sign changes (06/19/25 1410) Other: room air (06/19/25 1409) Weight-bearing: Current Level of Function - Occupational Therapy Feeding: Eating Assistance: Total assist (06/19/25 1409) Grooming: Grooming Assistance: Max assist (06/19/25 1409) Bathing:Bathing/Showering Assistance: Max assist (06/19/25 1409) Dressing: Toileting: Activity limitations: Activity Tolerance Endurance: Tolerates <30 minutes activity WITHOUT vital sign changes (06/19/25 1410) Other: room air (06/19/25 1409) Assessment/Plan Principal Problem: CVA (cerebral vascular accident) ([facility]) MRI is negative for ischemia Debility Gait [...] you for the referral. Richa Beyer MD [employer] Work Phone: 1(635) [phone] Progress note* Discharge Planning Note - Rohini Mcintyre RN - 06/20/2025 12:33 PM EDT DISCHARGE PLANNING NOTE Pt will need updated PT/OT notes sent to [facility]. When pt/ot worked w him yesterday they rec SNF, but he was much less alert. Pt doing better today. Therapy will work w him tomorrow morning 06/21to see if IPR appropriate. Barriers: IPR accept, pt/ot to see, precert. Rohini Mcintyre RN [facility]08-07-2025 Consult note* Maisha Vergara MD - 06/20/2025 12:19 PM EDT Images from the original note were not included. NEPHROLOGY CONSULT NOTE Date of Admission: 06/17/2025 1:38 PM Reason for Consult: Hyponatremia Referring Physician: Rocio Davis MD PCP: Yanique Mcneill APRN-AVELINA History of Present Illness: Dariel Zabala is [...] by mouth in the morning. Taking coenzyme [id number] E 100-5 mg-unit capsule Take 100 mg [...] from last 7 days Lab Units 06/19/25 0706/18/25 1528 06/17/25 1653 MAGNESIUM mg/dL 2.3 1.6* [...] anticoagulation MAISHA VERGARA MD [facility] ANY QUESTIONS FEEL FREE TO CALL: 1. OFFICE [phone] 2. ANSWERING SERVICE:[phone] YOU CAN CONTACT ME THROUGH [employer]URE CHAT DURING THE DAYTIME HOURS, IF NO RESPONSE AFTER 5 MINUTES CALL THE ANSWERING SERVICE This note was created with the assistance of a speech-recognition program. Although the intention is to generate a document that actually reflects the content of the visit, no guarantees can be provided that every mistake has been identified and corrected by editing. [facility]08-07-2025 Progress note* Discharge Planning Note - Brianna Verduzco - 06/20/2025 10:36 AM EDT DISCHARGE PLANNING NOTE I received a voice mail from Franc at [facility] phone [phone], she says she has left a few messages for an update for patient. This is the only vm I have received. Sending an [employer] chat to Rohini / Vivienne / Mesha with information [facility]08-06-2025 Plan of care note* Plan of Care - Nicole Sparks RN - 06/19/2025 11:13 PM EDT Problem: Pain Goal: Patient goal is pain score less than 4, able to rest, and participant in treatment plan as appropriate Description: INTERVENTIONS: 1. Encourage patient or legal representative personal service to report early pain and ask for [...] per policy 9. Teach patient or legal representative personal service interventions for comforting Outcome: Progressing Note: Evaluation [...] at the bedside 7. Instruct patient/ patient representative personal service about use of safety devices 8. Include patient/ patient representative personal service in decisions related to safety Outcome: Progressing [...] hygiene technique. 7. Identify and instruct patient/patient representative personal service in use of appropriate isolation precautionsfor identified infection/symptoms. 8. Provide and discuss with patient/patient representative personal service on educational MDRO sheet. 9. Encourage and monitor nutritional status daily and consult field return repairer if indicated. 10. Implement neutropenic guidelines as [...] supplement as ordered 13. Collaborate with clinical field return repairer 14. Include patient/ patient's representative personal service in decisions related to nutrition Outcome: Progressing [...] of consciousness, motor function, sensory function, and levelof assistance needed for ADLs 4. Monitor and [...] and report duration and description of seizure toLIP 10. If seizure occurs, turn patient to [...] indicated by [facility] Assessment Goal: Patient should be free from fall Description: Interventions: 1. [place] to environment 2. Hourly rounds addressing the [...] non-skid footwear 11. Teach patient and patient representative personal service to maintain environment for safety and engage [...] (cane, walker) within reach 19. Request patient representative personal service bring adaptive equipment/mobility aids from home or obtain and provide as needed 20. Consult pharmacy regarding effects of med's affecting mobility, cognition, and alternatives 21. Obtain physician order for PT if risk factors associated with mobility are present 22. Obtain physician order for OT as appropriate 23. Utilize diversional activities 24. Educate patient and patient representative personal service how to maintain a safe environment during visitationtimes (notify nurse prior to leaving bedside) 25. Consider appropriateness of medical or non-medical radiation tech 26. Set up voiding schedule as appropriate (every 2 hours) Outcome: Progressing Note: Evaluation of progress towards goal: pt free from fall at this time safety measures in place [employer] [id number] Progress note* PT/OT/OUTREACH REP - Ayaan Campos, PT - 06/19/2025 2:49 PM EDT Physical Therapy Evaluation Discharge Recommendations for Safe Patient Transition Discharge Recommendations: Post acute - moderate Post Acute Moderate Rehab Needs: Recommend moderate intensity rehab, Tolerate 1- 2 hrs of therapy 3-5 days/wk, Subacute or [...] P1/P2 occlusion. TNK given and transfer to [facility]. On arrival, NIHSS = 0 CT perfusion [...] Past Medical History: Diagnosis Date Atrial fibrillation (CMS-HCC) BPH (benign prostatic hyperplasia) Broken nose [place]A [place]cerebral [place] 06/17/2025 Diabetes [place] Epistaxis Hypertension Hyponatremia secondary to SIADH Hypothyroid [...] tolerated Equipment: repositioning sling, IV, bed alarm Telemetry/Dexigraph Operator: Yes Oxygen Used: room air Other: high [...] with rails Stairs to Enter: 2 from twisting frame fixer Rails: Right Stairs in Home: 0 Bathroom Shower/Tub: Walk-in shower Bathroom Toilet: Standard Home Equipment: Rolling walker Other : Home info from EMR review of recent therapy eval at [facility] - pt not able to answer questionsthis date and no family present. 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 Principal Problem: CVA (cerebral vascular accident) ([facility]) [facility]08-06-2025 Progress note* PT/OT/OUTREACH REP - Veronica Rivera OTR/Krishan - 06/19/2025 2:48 PM EDT Occupational Therapy Evaluation Discharge Recommendations for Safe Patient Transition Discharge Recommendations: Post acute - moderate Post Acute Moderate Rehab Needs: Recommend moderate intensity rehab, Tolerate 1- 2 hrs of therapy 3-5 days/wk, Subacute or chronic functional impairment Current Impairments Informing Therapy Recommendation: Ambulation status/safety, Cognition, Fall risk, ADL status, Communication needs, Endurance level Modified [place] Level of Disability: Severe disability 0= No [...] lot Scoring Daily Activity Raw Score: [address] [facility] G Code Modifier: CL Modifed chip index; 0/20 Occupational Profile Patient is a 85 year old male admitted with left side weakness and aphasia. CT brain: no acute. CTA: right P1/P2 occlusion. TNK given. CT perfusion: possible deficit left anterior temporal horn, likely artifact. MRI brain: no acute infarct, mild small vessel ischemic changes. Echo: results pending.Carotid duplex: pending. See below for past medical and past surgical history. Past Medical History: Diagnosis Date Atrial fibrillation [place] BPH (benign prostatic hyperplasia) Broken nose CVA (cerebral vascular accident) [place] 06/17/2025 Diabetes [place] Epistaxis Hypertension Hyponatremia secondary to SIADH Hypothyroid [...] Functional transfer training, Patient/family training, Home management, Neuromuscularreeducation, Functional activities, Equipment eval/education OT Frequency: 4-5days/week OT Duration: jul 19, 2025 Assessment Patient Assessment Therapy Problem List: Decreased ADL status, Decreased balance, Decreased cognition, Decreased endurance, Decreased high-level ADLs, Decreased mobility, Decreased safe judgement during ADL, Decreased self-care trans, Decreased UE ROM, Decreased UE strength, Decreased LE strength Patient Response to Treatment: Slow progress, cognitive deficits, Slow progress, decreased activitytolerance Mood/Affect: Flat Rehab Prognosis: Good, With continued OT status post acute discharge Visit RN Communication: Yes Medical Record Reviewed: Yes OT Type of Visit: Evaluation Precautions Activity: advance activity as tolerated per early mobility guidelines. Equipment: telemetry, IV Telemetry/Dexigraph Operator: Yes Oxygen Used: room air Other: fall [...] for manual muscle test. patient was able tomove right arm non purposeful to wipe face. [...] problems. Principal Problem: CVA (cerebral vascular accident) ([facility]) [id number] Nurse Note* Deepali Mathew RN - 06/19/2025 10:55 AM EDT RN concerned as patient is extremely drowsy not following commands or speaking, RN called neuro resident Dr. Davis who states she thinks patient is just tired and will re assess later. [facility] [place] [id number] Progress note* Discharge Planning Note - Dawson Yost RN - 06/19/2025 8:40 AM EDT Ongoing Assessment for Discharge Needs Reviewed discharge [...] assessed to determine their readiness, skills, capacities, andresources to provide post hospital care? Yes, Caregiver Assessment Completed Discharge Disposition Home with home health services Facility/Service Name [facility] Case discussed in daily transition rounds and chart reviewed by CN. Barriers to discharge include PT/OT, PMR to see, Discharge Plan remains: Home with [facility] vs IPR. [facility] will [facility]. [facility]- will need PT/OT notes as soon as they are in. CN will continue to follow and is available should any further needs arise. - Dawson Yost RN 06/19/25 8:40 AM [facility]08-05-2025 Plan of care note* Plan of Care - Leigha Eden RN - 06/18/2025 10:49 PM EDT Problem: Pain Goal: Patient goal is pain score less than 4, able to rest, and participant in treatment plan as appropriate Description: INTERVENTIONS: 1. Encourage patient or legal representative personal service to report early pain and ask for [...] per policy 9. Teach patient or legal representative personal service interventions for comforting Outcome: Progressing Note: Evaluation of progress towards goal: Pt able to rate pain no a scale of 1- 10. PRN pain medications available, see MAR. Problem: [...] at the bedside 7. Instruct patient/ patient representative personal service about use of safety devices 8. Include patient/ patient representative personal service in decisions related to safety Outcome: Progressing [...] hygiene technique. 7. Identify and instruct patient/patient representative personal service in use of appropriate isolation precautionsfor identified infection/symptoms. 8. Provide and discuss with patient/patient representative personal service on educational MDRO sheet. 9. Encourage and monitor nutritional status daily and consult field return repairer if indicated. 10. Implement neutropenic guidelines as needed. Outcome: Progressing Note: Evaluation of progress towards goal: Pt should remain free from infection during this shift. Standard precautions used during care. Problem: Knowledge Deficit Goal: Patient/patient representative personal service demonstrates understanding of disease process, treatment plan,medications, and discharge instructions Description: INTERVENTIONS 1. Complete [...] of consciousness, motor function, sensory function, and levelof assistance needed for ADLs 4. Monitor and [...] and report duration and description of seizure toLIP 10. If seizure occurs, turn patient to [...] be free from fall Description: Interventions: 1. [place] to environment 2. Hourly rounds addressing the [...] non-skid footwear 11. Teach patient and patient representative personal service to maintain environment for safety and engage [...] (cane, walker) within reach 19. Request patient representative personal service bring adaptive equipment/mobility aids from home or obtain and provide as needed 20. Consult pharmacy regarding effects of med's affecting mobility, cognition, and alternatives 21. Obtain physician order for PT if risk factors associated with mobility are present 22. Obtain physician order for OT as appropriate 23. Utilize diversional activities 24. Educate patient and patient representative personal service how to maintain a safe environment during visitationtimes (notify nurse prior to leaving bedside) 25. Consider appropriateness of medical or non-medical radiation tech 26. Set up voiding schedule as appropriate (every 2 hours) Outcome: Progressing Note: Evaluation of progress towards goal: Pt should remain free from fall during this shift. Bed in lowest position and locked, side rails up /, personal items and call light within reach, non skid socks applied, environment clear of hazards. [facility]08-05-2025 Nurse Note* Lauren Gaona RN - 06/18/2025 6:26 PM EDT Patient confused, on heparin drip, constantly trying to get out of bed, hitting, kicking and tryingto bite staff. Unable to follow direction. Dr Davis notified, says will order seroquel. Notified ofQT from EKG done 06/17 at [place]. [facility]08-05-2025 Progress note* Discharge Planning Note - Martina Mckeon - 06/18/2025 1:25 PM EDT DISCHARGE PLANNING NOTE Referral sent to [facility] in [place] (P# ; F# ) [facility]08-05-2025 Progress note* Discharge Planning Note - Brianna Verduzco - 06/18/2025 1:04 PM EDT DISCHARGE PLANNING NOTE Referral sent to. [facility] in [place], [place] (P# ; F# ) [facility]08-05-2025 Progress note* Discharge Planning Note - Dawson Yost RN - 06/18/2025 12:24 PM EDT Images from the original note were [...] and we didn't have money to get more.Never True Hunger Screening Complete? Yes Pt. Eligible [...] assessed to determine their readiness, skills, capacities, andresources to provide post hospital care? Yes, Caregiver Assessment Completed Discharge Disposition Acute rehab, Home with home health services Cage Cashier met with patient, introduced self, and explained role. Patient educated on safe discharge plan. Pt admitted 06/17/2025 with CVA (cerebral vascular [place]) [place] [I63.9] per chart review. Consults: Neurology Discharge Barriers per Daily Transition Rounds and chart review: PT/OT, s/p TNK- bedrest, MRi, echo. Past Medical History: Diagnosis Date Atrial fibrillation ([facility]) BPH (benign prostatic hyperplasia) Broken nose CVA (cerebral vascular accident) (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 Caregiver's personal limitations include Patient's feels she [...] vs acute rehab. PCP: TANYA Lozano Pharmacy: [facility] PCP and pharmacy confirmed with patient. CN offered to assist with follow up appointment arrangements; . TANYA Lozano added to Follow Up Providers for Summary of Care communication. Per patient self-report: Drug use: denies Smoking: denies ETOH Use: rarely Current discharge plan is: Home with [facility] vs acute rehab pending PT/OT eval. CN spoke with patient'swife she has used [facility] in past. Tasked to send referrals to [facility] and to [facility]. Services Requested: Services Requested Patient expects to be discharged to:: home Does the patient wish to have family/friend/caregiver involved in their discharge planning?: Yes Does the patient plan to return home to a community setting?: Yes Has the family/friend/caregiver been assessed to determine their readiness, skills, capacities, andresources to provide post hospital care?: Yes, Caregiver Assessment Completed Discharge Disposition: Acute rehab, Home with home health services Goals: Goals (pt-stated) Evaluation of progress towards goal: Home with [facility] Autogenerated Goal Will continue to follow as plan of care develops. CN discussed benefits and importance of medication compliance and follow ups. Please feel free to reach out for any discharge planning questions. - Dawson Yost RN 06/18/25 12:24 PM [facility]08-05-2025 Progress note* PT/OT/OUTREACH REP - Zaire Sierra CCC- OUTREACH REP - 06/18/2025 10:35 AM EDT Speech Therapy Evaluation Bedside Swallow/Feeding Evaluation Speech & Language Cognitive Evaluation Discharge Recommendations for Safe Patient Transition OUTREACH REP Post Discharge Therapy Recommendations: Continue ST services Recommendations Diet Level: Regular Liquid Level: Level 0 Thin Compensatory Strategies: Small sips/bites, One sip/bite at a time, Follow aspiration precautions Supervision/Positioning: Patient at 90 degress for all PO intake (including medication), Patient toremain upright 15 minutes after meals Impressions Oral Dysphagia: Mild Pharyngeal Dysphagia Suspected: Yes Plan Frequency: 2-3days/week Duration: until discharge Need for skilled Speech Language Pathology Services to address deficits in feeding/swallowing due to a status decline resulting from CVA. Prognosis Services: Skilled OUTREACH REP services to address above deficits Prognosis/Potential: Good Considerations: Age, Cognition Discharge Recommendations for Safe Patient Transition OUTREACH REP Post Discharge Therapy Recommendations: Continue ST services [...] should be further evaluated. Prognosis Services: Skilled OUTREACH REP services to address the above deficits Prognosis/Potential: [...] Dysphagia Problem: Swallowing Dates: Start: 06/18/25 Disciplines: OUTREACH REP Goal: STG: Patient will complete safety strategies independently during PO intake 90% of the time Dates: Start: 06/18/25 Expected End: 07/22/25 Disciplines: OUTREACH REP Template: ST - Rehab Speech Problem: Auditory Comprehension Dates: Start: 06/18/25 Disciplines: OUTREACH REP Goal: LTG: Patient will comprehend communication related to basic medical and social needs and utilize compensatory strategies to maintain safety in a functional living environment Dates: Start: 06/18/25 Expected End: 07/22/25 Disciplines: OUTREACH REP Goal: STG: Patient will answer simple yes/no questions with 90% accuracy with minimal cueing. Dates: Start: 06/18/25 Expected End: 07/22/25 Disciplines: OUTREACH REP Goal: STG: Patient will answer complex yes/no questions with 90% accuracy with minimal cueing Dates: Start: 06/18/25 Expected End: 07/22/25 Disciplines: OUTREACH REP Problem: Verbal Expression Dates: Start: 06/18/25 Disciplines: OUTREACH REP Goal: LTG: Patient will utilize compensatory strategies to communicate wants and needs effectively to different conversational partners, maintain safety and participate socially in a functional living environment Dates: Start: 06/18/25 Expected End: 07/22/25 Disciplines: OUTREACH REP Goal: STG: Patient will complete simple to complex divergent and convergent naming tasks with 90% accuracy with minimal cueing to improve thought organization Dates: Start: 06/18/25 Expected End: 07/22/25 Disciplines: OUTREACH REP Goal: STG: Patient will use word retrieval strategies during structured interactions to improve functional communication during activities of daily living with 90% accuracy with minimal cueing Dates: Start: 06/18/25 Expected End: 07/22/25 Disciplines: OUTREACH REP Speech Therapy Care Plan (Resolved) There are no resolved problems. Principal Problem: CVA (cerebral vascular accident) ([facility]) [facility]08-05-2025 Progress note* PT/OT/OUTREACH REP - ALVARO Chino/Krishan - 06/18/2025 7:37 AM EDT Occupational Therapy OT Type of Visit: Medical deferral Reason For Medical Deferral: Activity limitations Activity Limitations: Strict bedrest (Per TNK protocol. Will continue to follow.) [facility]08-05-2025 Progress note* PT/OT/OUTREACH REP - Ayaan Campos PT - 06/18/2025 7:28 AM EDT Physical Therapy PT Type of Visit: Medical deferral (strict bedrest s/p TNK per protocol) Reason For Medical Deferral: Activity limitations Activity Limitations: Strict bedrest Will check back as appropriate. [facility]08-05-2025 Plan of care note* Plan of Care - Lin Rhodes RN - 06/18/2025 7:14 AM EDT Problem: Pain Goal: Patient goal is pain score less than 4, able to rest, and participant in treatment plan as appropriate Description: INTERVENTIONS: 1. Encourage patient or legal representative personal service to report early pain and ask for [...] per policy 9. Teach patient or legal representative personal service interventions for comforting Outcome: Progressing Note: Evaluation [...] at the bedside 7. Instruct patient/ patient representative personal service about use of safety devices 8. Include patient/ patient representative personal service in decisions related to safety Outcome: Progressing [...] hygiene technique. 7. Identify and instruct patient/patient representative personal service in use of appropriate isolation precautionsfor identified infection/symptoms. 8. Provide and discuss with patient/patient representative personal service on educational MDRO sheet. 9. Encourage and monitor nutritional status daily and consult field return repairer if indicated. 10. Implement neutropenic guidelines as [...] be free from fall Description: Interventions: 1. [place] to environment 2. Hourly rounds addressing the [...] non-skid footwear 11. Teach patient and patient representative personal service to maintain environment for safety and engage [...] (cane, walker) within reach 19. Request patient representative personal service bring adaptive equipment/mobility aids from home or obtain and provide as needed 20. Consult pharmacy regarding effects of med's affecting mobility, cognition, and alternatives 21. Obtain physician order for PT if risk factors associated with mobility are present 22. Obtain physician order for OT as appropriate 23. Utilize diversional activities 24. Educate patient and patient representative personal service how to maintain a safe environment during visitationtimes (notify nurse prior to leaving bedside) 25. Consider appropriateness of medical or non-medical radiation tech 26. Set up voiding schedule as appropriate (every 2 hours) Outcome: Progressing Note: Evaluation of progress towards goal: Fall risk assessment preformed and safety measures in place. Education given to family/patient. Will continue to monitor. [facility] [id number] Plan of care note* Plan of Care - iRch Nelson RN - 06/17/2025 7:23 PM EDT Problem: Pain Goal: Patient goal is pain score less than 4, able to rest, and participant in treatment plan as appropriate Description: INTERVENTIONS: 1. Encourage patient or legal representative personal service to report early pain and ask for [...] per policy 9. Teach patient or legal representative personal service interventions for comforting Outcome: Progressing Note: Evaluation [...] at the bedside 7. Instruct patient/ patient representative personal service about use of safety devices 8. Include patient/ patient representative personal service in decisions related to safety Outcome: Progressing Note: Evaluation of progress towards goal: Patient safety maintained, call light in reach, area clear of hazards, hourly rounding continued, bed locked in lowest position, alarm on as applicable, nonskid socks on, safety educated completed with patient/family, [...] hygiene technique. 7. Identify and instruct patient/patient representative personal service in use of appropriate isolation precautionsfor identified infection/symptoms. 8. Provide and discuss with patient/patient representative personal service on educational MDRO sheet. 9. Encourage and monitor nutritional status daily and consult field return repairer if indicated. 10. Implement neutropenic guidelines as needed. Outcome: Progressing Note: Evaluation of progress towards goal: Patient remains free from signs of infection at this time. Will continue to monitor. Problem: Knowledge Deficit Goal: Patient/patient representative personal service demonstrates understanding of disease process, treatment plan,medications, and discharge instructions Description: INTERVENTIONS 1. Complete [...] indicated by [facility] Re[facility] Assessment Goal: Patient should be free from fall Description: Interventions: 1. [place] to environment 2. Hourly rounds addressing the [...] non-skid footwear 11. Teach patient and patient representative personal service to maintain environment for safety and engage [...] (cane, walker) within reach 19. Request patient representative personal service bring adaptive equipment/mobility aids from home or obtain and provide as needed 20. Consult pharmacy regarding effects of med's affecting mobility, cognition, and alternatives 21. Obtain physician order for PT if risk factors associated with mobility are present 22. Obtain physician order for OT as appropriate 23. Utilize diversional activities 24. Educate patient and patient representative personal service how to maintain a safe environment during visitationtimes (notify nurse prior to leaving bedside) 25. Consider appropriateness of medical or non-medical radiation tech 26. Set up voiding schedule as appropriate (every 2 hours) Outcome: Progressing Note: Evaluation of progress towards goal: Fall risk assessment preformed and safety measures in place. Education given to family/patient. Will continue to monitor. Additional Comments: [facility] [place] [id number] NotePatient Education Nephrology Hyponatremia Hyponatremia is when the [...] Follow these instructions at home: ??? Take ptvs-kiz-ctgmkmk and prescription medicines only as told by [...] provider. Document Revised: 05/11/2022 Document Reviewed: 05/11/2022 RealPage Patient Education ? 2023 [email or web address].[facility] 06-05-2025 History of Present illness Narrative* Flip Dubose RN - 06/05/2025 7:02 PM EDT Pt discharge- pt taken downstairs by wheelchair by son and by car [facility] . Son givenmed s, discharge instructions . Questions answered * Flip Dubose RN - 06/05/2025 5:58 PM EDT Pt status- neuro VISITOR SERVICES TECHNICIAN Nicole Musa called me in MICU few hrs ago. . Nicole spoke with Gladys , Kishore by phone. . Kishore is adament, despite [place] mild confusion, that she and her son want to drive Alexx back home to [place] to care for him at home tonight * Milagro Lloyd - 06/05/2025 5:56 PM EDT CLINICAL PHARMACY NOTE: MEDS TO BEDS Total # of Prescriptions Filled: 2 The following medications were delivered to the patient: Cephalexin 500mg Lisinopril 10mg Additional Documentation: delivered to patient in room 3008 06/05 at 5:15pm. Co- pay $0.71 srivastava. * Starr Jackman [facility] - 06/05/2025 11:30 AM EDT Pharmacy Note Warfarin Consult follow-up Recent Labs 06/05/25 0449 INR 1.9 Recent Labs 06/02/25 1308 06/03/25 0618 HGB 12.3* 12.3* HCT 36.5* 35.2* PLT 147 See Reflexed IPF Result Warfarin dose B2B SALES MANAGER: 5 mg MWF and 2.5 mg [...] Will continue to follow. Starr Jackman PharmD [facility] 06/05/2025 11:23 AM * Venessa Najera, PT - 06/05/2025 10:32 AM EDT Physical Therapy Facility/Department: [facility]- MICU Physical Therapy Initial Evaluation Patient [...] within reach, Gait belt, Left in chair [facility] Basic Mobility - Inpatient How much [...] 3-5 steps with a railing?: A Little [facility] Inpatient Mobility Raw Score : 22 [facility] Inpatient T-Scale Score : 53.28 Mobility Inpatient CMS 0-100% Score: 20.91 Mobility Inpatient [facility] G-Code Modifier : CJ Restrictions/Precautions Restrictions/Precautions Activity [...] Level of Assist for Transfers: Independent Active Tourist Agent: Yes Mode of Transportation: Truck Occupation: Retired [...] mobility Minutes PT Individual Minutes Time In: 950 Time Out: 1018 Minutes: 27 Time Code [...] Deann Carter MD Internal Medicine Resident, PGY-2 [place], [place] 06/05/2025,10:28 AM Attending Physician Statement I [...] do so. Jourdan Guan MD , * Flaco Ren MD - 06/05/2025 7:23 [...] [facility] after a fall which resulted in nasal bone fracture. Patient initially presented to [facility] yesterday and was treated with Afrin and nasal pressure, patient was discharged home with ENT follow-up. When patient returned home he blew his nose and resulted in brisk bleeding from the left nare prompting him to return to the ER yesterday evening. He had bilateral nasal packing with Rhino Rocket's placed and was transferred to [facility] evaluation. Patient was seen by ENT upon [...] this chart was generated using voice recognition [employer] dictation software. Although every effort was made to ensure the accuracy of this automated client support professional, some errors in client support professional may have occurred. * Geo Rehman [facility] - 06/04/2025 3:32 PM EDT Pharmacy Note Warfarin Consult follow-up Recent Labs 06/04/25 1423 INR 1.8 Recent Labs 06/02/25 1308 06/03/25 0618 HGB 12.3* 12.3* HCT 36.5* 35.2* PLT 147 See Reflexed IPF Result Warfarin dose B2B SALES MANAGER: 5 mg MWF and 2.5 mg [...] the consult. Will continue to follow. Geo Rehman PharmD * Blossom Mireles MD - 06/04/2025 [...] MIRELES MD Pediatric Otolaryngology-Head and Neck Surgery [facility] Otolaryngology group Office ph# [phone] Also available in [email or web address] * Rowena Duong, [facility] - 06/03/2025 11:31 AM EDT Pharmacy Note [...] inpatient. Rowena Duong PharmD 06/03/2025 11:30 AM * Beto Hedrick DO - 06/03/2025 8:19 AM EDT Images from the original note were not included. [facility] Office: [phone] Viktor Monet DO, Jermaine Gustafson DO, Brigida Pina DO, Jonah Cornelius DO, Layne Jiménez MD, Ashley Miller MD, Pierre Murillo MD, Gabbi Corado MD, Panfilo Borges MD, Sandy Gavin MD, Michael Moy MD, Aleksandra Rhoades DO, Lizbet Bryson MD, Pardeep Marroquin MD, Axel Monet DO, Hallie Dotson MD, Flip Cifuentes DO, Kristy Ren MD, Florence Iyer MD, Gianna Garber MD, MD Beth, Francy Johnson MD, Eunice Pedroza MD, Mary Garcia MD, Pollo Rodríguez MD, Radha Becerra MD, Beto Hedrick DO, Marisela Kirkpatrick MD, Paulo Mattson DO, Binh Bernstein MD, Aleksandra Duckworth MD, Dang Duckworth MD, Tiffany Francis MD, Valerie Trivedi CNP, Keren Gutierrez CNP, Beto Guzman CNP, Kemi Hdz DNP, Janelle Luna CNP, Celena Johnson, GARAGE DOOR SERVICE TECHNICIAN, Annia Rogers, GARAGE DOOR SERVICE TECHNICIAN, Christina Cuevas, GARAGE DOOR SERVICE TECHNICIAN, Marline Vila PA-C, Adore Cueto, AVELINA, Emily Chiang, GARAGE DOOR SERVICE TECHNICIAN, Maria Elena De La Torre, GARAGE DOOR SERVICE TECHNICIAN, Venessa Mitchell, GARAGE DOOR SERVICE TECHNICIAN, Rush Peters, RAMÓNC, Rachel Nascimento, RAMÓNC, Lorna Salazar, GARAGE DOOR SERVICE TECHNICIAN, Edwina Cole, BROKERAGE CLERK, Alex Castillo CNP, Leelee Easley, AVELINA [facility] IN-PATIENT SERVICE [facility] Progress Note 06/03/2025 8:19 AM Name: Dariel Zabala Acct: [id number] Room: [address] [place] [address] Day: 1 Admit Date: 06/02/2025 10:01 AM [...] hypertension, type2 diabetes, SIADH initially presented to [place] emergency department for nosebleeding after mechanical fall out of a chair. CT scan reportedly showed nasal bone fracture. He was transferred to [place] for ENT evaluation. ENT deflated nasal packings [...] , PHART , PH , POCPCO2 , GKU4DMJ , PCO2 , POCPO2 , PO2ART , PO2 , POCHCO3 , GWL9AJB , HCO3 , NBEA , PBEA , BEART , BE , THGBART , THB , FSD6QPF , LRFP3ZAD , M1FLIMLN , O2SAT , FIO2 No results found [...] Beto Hedrick DO 06/03/2025 8:19 AM * Florence Daigle MD - 06/03/2025 7:48 AM EDT [...] If none- ok for discharge home. FLORENCE DAIGLE MD Pediatric Otolaryngology-Head and Neck Surgery [facility] Otolaryngology group Office ph# [phone] Also available in [employer] * Juju Garcia [facility] - 06/02/2025 2:42 PM EDT Pharmacy Note Warfarin Consult Dariel Zabala is a 85 y.o. male for whom pharmacy has been consulted to manage warfarin therapy. Consulting Physician: Adore Cueto APRN - NP Reason for Admission: Mechanical fall resulting in [...] 06/02/2025 10:44 AM EDT Pt arrived from [facility] via [facility]. Pt A&Ox4, admission database complete. Mediations reconciled. Pt put on telemetry and continuous pulse ox. Vitals stable. Bilat rhino rockets in place. No active epistaxis at this time. Primary team made aware of arrival. Cage Cashier called pt's to make her aware if the transfer, no answer left message. documented in this encounterBon [facility]itrick [facility]07-[facility] Hospital course Narrative* Pepito Grant MD - 06/05/2025 3:29 PM EDT Images from the original note were not included. [facility] Department of Internal Medicine - Critical Care Service INPATIENT DISCHARGE SUMMARY PATIENT IDENTIFICATION: NAME: Dariel Zabala : 1940 Acct: [id number] Admit Date: 06/02/2025 Discharge date: No discharge [...] in nasal bone fracture. [facility] and was treated with Afrin and nasal pressure, patient wasdischarged home with ENT follow-up. When patient returned home he blew his nose and resulted in brisk bleeding from the left nare prompting him to return to the ER yesterday evening. He had bilateralnasal packing with Rhino Rocket's placed and was transferred to [facility] for ENT evaluation. Patient was seen by [...] 1 weeks with PCP, in 1 weeks heel painter Time Spent on discharge is more than 15 minutes in the examination, evaluation, counseling and review of medications and discharge plan. Pepito Grant MD Internal Medicine Resident Critical Care Service Cosigned by Flaco Ren MD at 06/05/2025 5:16 PM EDT documented in this encounterBon Mckitrick [facility]07-23-2025 Hospital Discharge instructions* Discharge Instructions* Pepito Grant MD - 06/05/2025 [...] 2-3 Please follow-up with your PCP and heel painter (kidney doctor )for continued care Please go to the nearest ER if you have worsening of current symptoms or started experiencing new symptoms like shortness of breath, chest pain, palpitations, dizziness, loss of consciousness, any bleed from the nose for further evaluation management documented in this encounterBon [facility]ckitrick [facility]07-07-2025 NoteNurse Consultation Note Reason for Visit patient came IO for [...] 03/31/2015 Recorded influenza virus vaccine, inactivated 08/02/2014 [facility] NotePatient Education Cardiovascular Atrial Fibrillation Atrial fibrillation (AFib) is a type of heartbeat that is irregular or fast. If you have AFib, yourheart beats without any order. This makes it [...] these instructions at home: Medicines ??? Take iqpk-viw-fdmzfta and prescription medicines only as told by [...] provider. Document Revised: 07/20/2023 Document Reviewed: 07/20/2023 RealPage Patient Education ? 2023 [email or web address]. Caregiving Fall Prevention in the Home, Adult Falls can cause injuries and can happen to people of all ag (more content not included)...[facility]02-17-2025 NoteNurse Consultation Note Reason for Visit Pt [...] 03/31/2015 Recorded influenza virus vaccine, inactivated 08/02/2014 RecordedMer[facility]02-10-2025 NotePatient Education Cardiovascular Atrial Fibrillation Atrial fibrillation (AFib) is a type of irregular or rapid heartbeat (arrhythmia). In AFib, the toppart of the heart (atria) beats in an [...] signals of the heart. ??? An ambulatory cardiac rehabilitation specialist to record your heart's activity for a [...] the main warning s (more content not included)...[facility] 11-28-2024 History of Present illness Narrative* Jose L Chow NP - 11/28/2024 1:00 PM EST Images from the original note were not included. HISTORY OF PRESENT ILLNESS: Dariel Zabala is an 84 y.o. @ male. 1ST PO LT CTR 11/19/24 (9 DAYS) @ [facility] ([facility]). PAIN DIFFUSE IN HAND/WRIST. KEEPS COVERED WITH BANDAID. TOOK TYL A COUPLE TIMES. ADMITS SWELLING IN FINGERS. ADMITS NUMBNESS IN THUMB, IF AND MF- DENIESIMPROVEMENT SINCE SX YET. DOES NOT WAKE AT [...] planes with 5 out of 5 strength. Radialand ulnar pulses were present and equal bilaterally postoperatively. Capillary refill was less than2 seconds postoperatively to operative upper extremity nailbeds. [...] for requiring urgent evaluation. Jose L Chow APRN-AVELINA documented in this encounterMid Missouri Mental Health [id number] History of Present illness Narrative* Emiliano Escamilla MD - 11/26/2024 10:30 AM EST Images from the original note were not included. Subjective Patient ID: Dariel Zabala is a 84 y.o. male who presents for Ear Problem (Hearing aid battery in ear.) Pt seen in [facility] ED last Tuesday and DARNELL battery [...] NECK SURGERY TRIGGER FINGER RELEASE Right 03/26/2024 [facility] () No Known Allergies Current Outpatient Medications [...] MOUTH ONCE DAILY NEEDED FOR INTERCOURSE FOR 14DAYS sodium chloride 1 g tablet Take 1 [...] NOSTRIL ONCE DAILY AT BEDTIME [DISCONTINUED] HYDROcodone-acetaminophen ([place]) 5-325 MG tablet [DISCONTINUED] tiZANidine (Zanaflex) 4 [...] dementia. Dr Garcia notified. documented in this encounterMid Missouri Mental Health [id number] NoteProgress Note-Physician Patient: DARIEL ZABALA Age: 84 years Sex: Male : 1940 Associated Diagnoses: None Author: Carmine COHN, Chau Pineda Postoperative Information Postoperative disposition: Postoperative disposition: To PACU. Optimetrix number: Optimetrix number [id number]. Anesthetic utilized: General. Health Status Allergies: Allergic [...] Discharge when meets criteria ( To home ).[facility] HospitalComment on above:Result Comment: Electronically Signed By: Chau Lou MD\.br\Date and Time Signed: 11/19/24 15:19 EST 11-19-2024 Evaluation + Plan noteExtracted from: Title:ANES Post-operative Note---General Author: Chau Lou MD Date:11/19/24 Plan Transfer/Discharge: Transfer/Discharge Discharge when meets criteria ( To home ). Extracted from: Title:ANES Pre-operative Note 2022 Author:Chau Goode Date:11/19/24 Plan [place] [employer]esthesi[employer] (ASA) physical status classification: Class III. Anesthetic Preoperative Plan: Anesthesia General. Future Appointments Appointment Date:12/12/2024 10:15:00 AM Scheduled Provider:Dixon Dubose PA-C Location:.[facility] Appointment Type:Cardiology Follow Up (FT) Appointment Date:05/02/2025 08:00:00 AM Scheduled Provider: Location:[facility] Appointment Type:FM Medicare Wellness Subsequent Future Scheduled Tests Laboratory* Basic Metabolic Panel 11/13/24 [facility] [id number] NotePatient Education - Text [place], [place] [facility] CARPAL TUNNEL RELEASE INSTRUCTIONS [...] Patient Signature Axel Hernández, DO [facility] [address] [place], [place] [id number] [phone] Reviewed: 04-22[facility]01-06-2025 NoteProgress Note-Physician Patient: DARIEL ZABALA Age: [...] daily, # 90 tab(s), Refills(s) 0, [id number], cm, 06/11/24 12:53:00 EDT, Height/Length Dosing, 82, kg, 06/11/2412:56:00 EDT, Weight Dosing Sodium Chloride 1000 mg oral tablet, soluble: See Instructions, 30 tab(s), Refill(s) 0, Take one tablet daily, [id number] 178.6, cm, 11/01/24 9:21:00 EST, Height/Length Dosing, 81.3, kg, 11/01/24 9:21:00 EST, Weight Dosing Synthroid 25 mcg(0.025 mg) Tab: See Instructions, TAKE 1 TABLET DAILY ON AN EMPTY STOMACH, # 3 tab(s), Refills(s) 0, [id number] 178, cm, 08/07/24 10:59:00 EDT, Height/Length Dosing, 78.2, kg, 08/07/24 10:59:00 EDT, Weight Dosing atenolol 25 mg Tab: See Instructions, take 1/2 tab daily, # 90 tab(s), Refills(s) 1, Pharmacy: [facility], 178, cm, 09/10/24 13:01:00 EDT, Height/Length Dosing, 80.1, kg, 09/10/24 13:01:00 EDT, Weight Dosing finasteride 5 mg Tab: 5 mg = 1 tab(s), Oral, Daily, # 90 tab(s), Refills(s) 1, Pharmacy: [facility] #[id number], 178.6, cm, 11/01/24 9:21:00 EST, Height/Length Dosing, 81.3, kg, 11/01/24 9:21:00 EST, Weight Dosing fluticasone Nasal 0.05 mg/inh [place]: See Instructions, 48 mL, Refill(s) 1, USE 1 SPRAY IN EACH NOSTRIL TWICE A DAY, [id number], 178, cm, 08/28/24 14:50:00 EDT, Height/Length Dosing, 82.2, kg, 08/28/24 14:50:00 EDT, Weight Dosing gabapentin 300 mg Cap: 300 mg = 1 cap(s), Oral, Daily, # 90 cap(s), Refills(s) 1, Pharmacy: [facility], 178, cm, 07/03/24 10:05:00 EDT, Height/Length Dosing, 80.8, kg, 07/03/2410:05:00 EDT, Weight Dosing glimepiride 2 mg Tab: See Instructions, TAKE 1 TABLET DAILY, # 3 tab(s), Refills(s) 0, Pharmacy: [facility], 178, cm, 08/07/24 10:59:00 EDT, Height/Length Dosing, 78.2, kg, 08/07/24 10:59:00 EDT, Weight Dosing omeprazole 40 mg Cap-DR: 40 mg = 1 cap(s), Oral, Daily, # 90 cap(s), Refills(s) 1, Pharmacy: [facility], 178, cm, 08/28/24 14:50:00 EDT, Height/Length Dosing, 82.2, kg, 08/28/24 14:50:00 EDT, Weight Dosing pravastatin 40 mg Tab: 40 mg = 1 tab(s), Oral, Daily, # 90 tab(s), Refills(s) 3, Pharmacy: [facility], 178, cm, 09/10/24 13:01:00 EDT, Height/Length Dosing, 80.1, kg, 09/10/24 13:01:00 EDT, Weight Dosing sildenafil 100 mg Tab: 100 mg = 1 tab(s), Oral, Daily, PRN for erectile dysfunction, 1 hour before sexual activity, # 5 tab(s), Refills(s) 0, Pharmacy: [facility], 178, cm, 07/03/24 10:05:00 EDT, Height/Length Dosing, 80.8, kg, 07/03/24 10:05:00 EDT,... tamsulosin 0.4 mg Cap: 0.4 mg = 1 cap(s), Oral, Daily, # 90 cap(s), Refills(s) 1, Pharmacy: [facility], 178, cm, 09/10/24 13:01:00 EDT, Height/Length Dosing, 80.1, kg, 09/10/2413:01:00 EDT, Weight Dosing Documented Medications Documented CoQ10: See Instructions, PRN Prophylaxis, Refills(s) 0 D3: See Instructions, Oral Daily- patient states he takes 500 once a day, Refills(s) 0 Jantoven 5 mg oral tablet: 5 mg = 1 tab(s), Oral, Daily, Refills(s) 0, Blood Thinner (more content not included)...[facility] on above:Result Comment: Electronically Signed By: Carmine COHN, Chau Pineda\.br\Date and Time Signed: 11/19/24 11:51 [id number] Hospital Discharge instructions Patient Education 11/12/2024 12:08:21 Hernández - Carpal Tunnel Release Instructions (Custom) (CUSTOM) [place], [place] [facility] CARPAL TUNNEL RELEASE INSTRUCTIONS [...] pins and needles to resolve. Patient SignatureMiclolis Hernández, [facility] [address], [place] [address] Reviewed: 04-2211/19/2024 13:10:26 Post Op Patient Instructions - FT (Custom) (CUSTOM) Follow Up Care 10/03/2024 14:28:43 With:GORDO Weller Address: [address] [place] [phone] (1) When:11/28/2024 13:00:00 Comments:Keep scheduled appointment. Call for any problems. [facility] 12-30-2024 NotePatient Education - Text [place], [place] [facility] CARPAL TUNNEL RELEASE INSTRUCTIONS [...] Patient Signature Axel Hernández, DO [facility] [address] [place] [address] Reviewed: 04-22[facility]12-30-2024 NoteNurse Consultation Note Reason for Visit [...] Daily, 1 refills fluticasone Nasal 0.05 mg/inh [place], See Instructions, Self Directed gabapentin 300 mg [...] 03/31/2015 Recorded influenza virus vaccine, inactivated 08/02/2014 [facility] History of Present illness Narrative* Shala Farrell MD - 09/28/2024 9:30 AM EST [facility] Patient: Dariel Zabala [address], [address] , Sex: 1940, Male [place], [place] [address] Height: 180 cm Ref Phys: Hernández fax [...] Doub=doublet; Fasc=fasciculation; FFE=full for effort; Fib=fibrillation; Myokym=myokymia; Adamant=myotonic potential; N,0=normal; NR=no response; Polyph=polyphasia; Pos=positive [sharp] [...] available for comparison. Shala Farrell M.D. Diplomate, [place] [employer]iat[employer] and Neurology (neurology, epilepsy, sleep medicine) Diplomate, [place] Board of Clinical Neurophysiology Diplomate, [place] Board of Preventive Medicine (clinical informatics) . documented in this [facility]10-07-2024 Telephone encounter Note* Telephone Encounter - Miguel Moe - 08/20/2024 10:50 AM EDT LVM to RC in regard to BUE referral from Dr. Hernández--Approved to schedule--25.00 co-pay will be applied to toward OOP. [facility] [id number] Miscellaneous Notes* Telephone Encounter - Miguel Moe - 08/20/2024 10:50 AM EDT LVM to RC in regard to BUE referral from Dr. Hernández--Approved to schedule--25.00 co-pay will be applied to toward OOP. documented in this [facility]05-13-2024 Hospital Discharge instructions Patient Education 03/26/2024 14:02:11 [...] condition: Doing activities that require a strong desk interviewer. Having rheumatoid arthritis, gout, or diabetes. Being [...] splint on your hand. General instructions Take puom-scf-xnsxphh and prescription medicines only as told by [...] provider. Document Revised: 03/17/2020 Document Reviewed: 03/17/2020 [employer] Patient Education 2022 [email or web address]. Follow Up Care 03/01/2024 15:40:29 With:GORDO Weller Address: [address] [place], [place] [id number] Business (1) When:04/04/2024 10:15:00 Comments:Keep scheduled appointment [facility]01-05-2024 Evaluation note* Encounter Date Diagnosis Assessment Notes [...] sodium level at upcoming appt in January EXPO Other 12-20-2023 Evaluation note* Encounter Date Diagnosis [...] further dizziness symptoms would recommend f/u with cam specialist as well. EXPO Other 11-17-2023 Evaluation note* Encounter Date Diagnosis Assessment Notes Treatment Notes Treatment Clinical Notes Sep, Type 2 diabetes mellitus (ICD-10 - E11.9) EXPO Other 11-17-2023 Miscellaneous Notes* Telephone Encounter - Venessa Riggins RN - 09/30/2023 12:29 PM EST Called patient back and reviewed plan from his call with Nurse Information Technology Audit Manager at 11:36 AM. See my note Patient already called his PCP as advise and waiting call back for scheduling. He was hospital discharged on 08/26 for cognitive problems and low sodium. He finished his pills for low sodium today. NOC closing was given Conferenced [facility] to [facility] appt with nephrology as soon [...] have any questions, you can call Nurse j2ee consultant back. * Telephone Encounter - Venessa Riggins RN - 09/30/2023 11:36 AM EST Patient calling with request for physician referral: Patient referred to nephrology and primary care Department. Patient denies any new or worsening symptoms of which a provider is not aware: Yes. Patient was discharged from [facility] on 08/26 for low sodium [...] appt. Conferenced him to [facility] and then call dropped. [employer] lost connection. NOC closing was given GO TO THE EMERGENCY ROOM OR CALL 911 IF: * You develop any new symptoms * Your condition worsens * You are concerned or anxious about your condition for any other reason. If you have any questions, you can call Nurse j2ee consultant back. documented [facility] this [facility] Evaluation note* Encounter Date Diagnosis Assessment Notes Treatment Notes Treatment Clinical Notes Sep, Hyponatremia (ICD-10 - E87.1) Recent sodium 136 at low end of normal, given significance of symptoms and recommendation of hospital for f/u will refer to nephrology patient requesting [place] Sep, Anticoagulant long-term use (ICD-10 - Z79.01) Follows with INR clinic through [facility]. Sep, Atrial fibrillation (ICD-10 - I48.91) Appears in NSR today, anticoagulated on Warfarin Sep, Hypothyroidism (ICD-10 - E03.9) Recent TFTs in normal range, clinically euthyroid, continue current dose of LT4 Sep, Type 2 diabetes mellitus (ICD-10 - E11.9) Recent a1c in good range at 5.6%, continue current dose of glimepiride. Sep, Immunization due (ICD-10 - Z23) EXPO Other 10-16-2023 Evaluation note* Encounter Date Diagnosis Assessment Notes Treatment Notes Treatment Clinical Notes Aug, Hyponatremia (ICD-10 - E87.1) EXPO Other 08-03-2023 Evaluation note* Encounter Date Diagnosis Assessment Notes Treatment Notes Treatment Clinical Notes Jun, Atrial fibrillation (ICD-10 - I48.91) Rate controlled, mild bradycardia but asymptomatic. Will continue current dose of atenolol. He is anticoagulated on Coumadin with goal INR 2-3, he is due for INR check. Will refer to coumadin clinic through [facility] Jun, Anticoagulant long-term use (ICD-10 - Z79.01) Jun, Hearing loss (ICD-10 - H91.90) Referral to local associate program manager Jun, Dermatitis (ICD-10 - L30.9) Can trial topical steroid PRN, discussed may be secondary to dry skin. Recommend daily use of lotion Jun, Hypothyroidism (ICD-10 - E03.9) Due for TFTs prior to next visit Jun, Type 2 diabetes mellitus (ICD-10 - E11.9) Due for a1c prior to next visit Jun, BPH (benign prostatic hyperplasia) (ICD-10 - N40.0) EXPO Other 08-03-2023 Reason for referral (narrative)* Reason Medication managemen t through [facility] - Coumadin management with INR goal 2-3 Diagnosis 1 Anticoagulant long-t erm use (Z79.01) [facility] Referring Provider First Name Jada Referring Provider Last Name [facility] Referring Provider Specialty [facility] Referred Organization [facility] Referred Address [address], [place],[address] Referred Provider Specialty Milvia s Referral Priority Routine General Notes Gabrielle Reid 01/2023 01:34:29 PM >this is an order not a referral, clinical informed and will fax order over for standing order INR to [facility] Reason * FU 06/29 CALL he aring loss, issue with hearing aids Diagnosis 1 Hearing loss (H91.90 ) [facility] Referring Provider First Name Jada Referring Provider Last Name [facility] Referring Provider Specialty [facility] Referred Organization [facility] Referred Address ,[place], [place],[address] Referred Provider Specialty Audiologists Referral Priority Routine General Notes Gabrielle Reid 01/2023 01:28:34 PM >referral received and faxed EXPO Other 04-27-2010 History of Past illness Narrative* Problem Noted Date Diagnosed Date Resolved Date Myalgia 03/10/2010 03/01/2011 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 and other lower urinary tract symptoms (LUTS) 08/11/2006 01/11/2013 Elevated prostate specific antigen (PSA) 03/07/2012 documented as of this encounter (statuses as of 09/30/2023) [facility] note No data available for this section [facility] Future Appointments Appointment Date:03/08/2024 01:00:00 PM Scheduled Provider:Edwin Garcia MD Location:[facility] Appointment Type:FM Open Appointment Date:03/26/2024 01:45:00 PM Scheduled Provider: [facility] Appointment Type:Surgery FT Appointment Date:05/01/2024 09:00:00 AM Scheduled Provider: Location:[facility] Appointment Type:FM Lab Draw Appointment Date:05/03/2024 08:00:00 AM Scheduled Provider: Location:[facility] Appointment Type: Medicare Wellness Subsequent Appointment Date:05/03/2024 09:00:00 AM Scheduled Provider:Edwin Garcia MD Location:[facility] Appointment Type: Open Future Scheduled Tests Laboratory* PSA Screen, Total 02/02/24 * CBC w/ Auto Diff 02/02/24 * Comprehensive Metabolic Panel 02/02/24 * Lipid Panel 02/02/24 [facility] Future Appointments Appointment Date:05/01/2024 09:00:00 AM Scheduled Provider: Location:[facility] Appointment Type: Lab Draw Appointment Date:05/03/2024 08:00:00 AM Scheduled Provider: Location:[facility] Appointment Type: Medicare Wellness Subsequent Appointment Date:05/03/2024 09:00:00 AM Scheduled Provider:Edwin Garcia MD Location:[facility] Appointment Type: Open Future Scheduled Tests Laboratory* PSA Screen, Total 02/02/24 * CBC w/ Auto Diff 02/02/24 * Comprehensive Metabolic Panel 02/02/24 * Lipid Panel 02/02/24 [facility] Future Appointments Appointment Date:05/01/2024 09:00:00 AM Scheduled Provider: Location:[facility] Appointment Type:FM Lab Draw Appointment Date:05/03/2024 08:00:00 AM Scheduled Provider: Location:[facility] Appointment Type: Medicare Wellness Subsequent Appointment Date:05/03/2024 09:00:00 AM Scheduled Provider:Edwin Garcia MD Location:[facility] Appointment Type: Open Appointment Date:05/25/2024 01:00:00 PM Scheduled Provider:Kashif Barnett MD [facility] [place] Appoint[facility] Type:Cardiology Follow Up (FT) Future Scheduled Tests Laboratory* PSA Screen, Total 02/02/24 * CBC w/ Auto Diff 02/02/24 * Comprehensive Metabolic Panel 02/02/24 * Lipid Panel 02/02/24 Radiology* Echo Transthoracic Complete [facility]20/24 [facility] Future Appointments Appointment Date:05/03/2024 08:00:00 AM Scheduled Provider: Location:[facility] Appointment Type:FM Medicare Wellness Subsequent Appointment Date:05/03/2024 09:00:00 AM Scheduled Provider:Edwin Garcia MD Location:[facility] Appointment Type:FM Open Appointment Date:05/21/2024 10:00:00 AM Scheduled Provider: [facility] Type:CV Holter/Event (FT) Appointment Date:05/25/2024 01:00:00 PM Scheduled Provider:Kashif Barnett MD [facility] [place] App[facility] Type:Cardiology Follow Up (FT) [facility] Future Appointments Appointment Date:05/30/2024 03:45:00 PM Scheduled Provider:Kashif Barnett MD [facility] Type:Cardiology Follow Up (FT) Appointment Date:11/01/2024 09:15:00 AM Scheduled Provider:Edwin Garcia MD Location:[facility] Appointment Type: Open Appointment Date:05/02/2025 08:00:00 AM Scheduled Provider: Location:[facility] Appointment Type: Medicare Wellness Subsequent [facility] + Plan note Future Appointments Appointment Date:08/31/2024 01:00:00 PM Scheduled Provider:Kashif Barnett MD [facility] [place] Appointment Type:Cardiology Follow Up (FT) Appointment Date:11/01/2024 09:15:00 AM Scheduled Provider:Edwin Garcia MD Location:[facility] Appointment Type: Open Appointment Date:05/02/2025 08:00:00 AM Scheduled Provider: Location:[facility] Appointment Type:FM Medicare Wellness Subsequent [facility] Future Appointments Appointment Date:11/01/2024 09:15:00 AM Scheduled Provider:Edwin Garcia MD Location:[facility] Appointment Type:FM Open Appointment Date:12/11/2024 01:00:00 PM Scheduled Provider:Dixon Dubose PA-C Location:[facility] Appointment Type:Cardiology Follow Up (FT) Appointment Date:05/02/2025 08:00:00 AM Scheduled Provider: Location:[facility] Appointment Type: Medicare Wellness Subsequent [facility] Evaluation + Plan note Future Appointments Appointment Date:11/01/2024 09:15:00 AM Scheduled Provider:Edwin Garcia MD Location:[facility] Appointment Type:FM Open Appointment Date:11/19/2024 02:15:00 PM Scheduled Provider: Location:[facility] Appointment Type:Surgery FT Appointment Date:12/12/2024 10:15:00 AM Scheduled Provider:Dixon Dubose PA-C [facility] Type:Cardiology Follow Up (FT) Appointment Date:05/02/2025 08:00:00 AM Scheduled Provider: Location:[facility] Appointment Type: Medicare Wellness Subsequent [facility] Evaluation + Plan note Future Appointments Appointment Date:11/19/2024 02:15:00 PM Scheduled Provider: Location:[facility] Appointment Type:Surgery FT Appointment Date:12/12/2024 10:15:00 AM Scheduled Provider:Dixon Dubose PA-C [facility] Type:Cardiology Follow Up (FT) Appointment Date:05/02/2025 08:00:00 AM Scheduled Provider: Location:[facility] Appointment Type: Medicare Wellness Subsequent [facility] Evaluation + Plan note Future Appointments Appointment Date:12/24/2024 01:15:00 PM Scheduled Provider:Edwin Garcia MD Location:[facility] Appointment Type:FM Open Appointment Date:05/02/2025 08:00:00 AM Scheduled Provider: Location:[facility] Appointment Type: Medicare Wellness Subsequent Diagnostic Tests Pending * Basic Metabolic Panel 12/17/24 Future Scheduled Tests Laboratory* Basic Metabolic Panel 11/13/24 [facility] evaluation + Plan note Future Appointments Appointment Date:01/22/2025 10:15:00 AM Scheduled Provider:Edwin Garcia MD Location:[facility] Appointment Type: Open Appointment Date:05/02/2025 08:00:00 AM Scheduled Provider: Location:[facility] Appointment Type: Medicare Wellness Subsequent Future Scheduled Tests Laboratory* Basic Metabolic Panel 11/13/24 [facility] evaluation + Plan note Future Appointments Appointment Date:02/05/2025 01:30:00 PM Scheduled Provider:Edwin Garcia MD Location:[facility] Appointment Type: Open Appointment Date:05/02/2025 08:00:00 AM Scheduled Provider: Location:[facility] Appointment Type: Medicare Wellness Subsequent Future Scheduled Tests Laboratory* Basic Metabolic Panel 01/10/25 * Basic Metabolic Panel 11/13/24 [facility] evaluation + Plan note Future Appointments Appointment Date:05/02/2025 08:00:00 AM Scheduled Provider: Location:[facility] Appointment Type: Medicare Wellness Subsequent Future Scheduled Tests Laboratory* Basic Metabolic Panel 11/13/24 [facility] evaluation + Plan note Future Appointments Appointment Date:08/09/2025 10:40:00 AM Scheduled Provider:YANIQUE MCNEILL CNP Location:[facility] Appointment Type: Open Appointment Date:05/13/2026 08:00:00 AM Scheduled Provider: Location:[facility] Appointment Type: Medicare Wellness Subsequent Future Scheduled Tests Laboratory* Basic Metabolic Panel 11/13/24 [facility] evaluation noteNo [employer] Other evaluation note* Diagnosis Pain in both [...] Other postprocedural status documented in this encounter [facility] HealthcareEvaluation note* Diagnosis Fracture of nasal bones, [...] and immunity disorders documented [facility] this encounter [facility] Diagnosis CVA (cerebral vascular accident) ([facility])- Primary Unspecified cerebral artery occlusion with cerebral infarction 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 ([facility]) [facility] this encounter [facility] Narrative - Reported* Type Description Date Medical History type 2 diabetes Medical History hypothyroid Medical History Afib Surgical History multiple neck sx Surgical History tonsillectomy Surgical History adenoidectomy Surgical History MAU cataract Hospitalization History see above [facility]PO Other [facility] general Narrative - Reported* Type Description Date Medical History type 2 diabetes Medical History hypothyroid Medical History Afib Surgical History multiple neck sx Surgical History tonsillectomy Surgical History adenoidectomy Surgical History MAU cataract Hospitalization History see above [facility] EXPO Other [facility] general Narrative - Reported* Type Description Date Medical History type 2 diabetes Medical History hypothyroid Medical History Afib Surgical History multiple neck sx Surgical History tonsillectomy Surgical History adenoidectomy Surgical History MAU cataract Hospitalization History see above [facility] Hospital[facility] History Jackie--Influe nza A, hyponatremia, paroxysmal afib, altered mental status, type 2 DM, generalized weakness hypomagnesiema, RADHA 11/13/23-11/15/23 EXPO Other Hospital Discharge instructions No data available for this section [facility] instructionsNot on file documented in this encounterC[facility] HospitalHospital Discharge instructionsAmbulatory Orders* Initiate Home Health Time Frame: 07/23/25, [...] see your PCP in the [facility] Work Phone: Progress note No data available for this section [facility] for visit Narrative* Auth/Cert (Routine) Specialty Diagnoses / Procedures Referred By Samuel reese Referred To Contact Diagnoses Epistaxis Nasal fracture Fracture of nasal bones, initial encounter for closed fracture Beto Hedrick DO [address] [facility] [address] [place] [address] Phone: tel: fax: [facility] [address] [place] [address] Referral ID Status Reason Start Date Expiration Date Visits Re quested Visits Authorized [id number] 1 1 [facility] for visit Narrative* Auth/Cert Specialty Diagnoses / Procedures Referred By Samuel reese Referred To Contact Diagnoses CVA Mara [address] [place] [id number] Referral ID Status Reason Start Date Expiration Date Visits Re quested Visits Authorized [id number] 1 1 [facility] Summary Purpose Family History No Family History Records Found Relationship Condition Age at Onset Recorded Date/T siri father Unknown family member Unknown mother Unknown Advance Directives No Advanced Directives Records Found Date Activated Date Inactivated Comments 06/02/2025 12:05 PM Date Activated Date Inactivated Comments 06/23/2025 10:31 AM Advance Directive Response Recorded Date/ Time Advance Directives No Coffeen 3rd, 2 023 2:41pm Reason for Referral Reason * FU 09/28 follow up hospitalization for symptomatic hyponatremia[facility] [place] Dr. Lara ph [phone], fax [phone] Diagnosis 1 Hyponatremia (E87.1) Referral Organization [facility] Rodo John Referring Provider First Name Jada Referring Provider Last Name [facility] Referring Provider Specialty [facility] [employer] Referred Organization Will [facility] Referred Provider Romeo Lara Referred Address [address], [place],[address] Referred Provider Specialty Internal Med icine Referral Priority Routine General Notes Gabrielle Reid 06/2023 01:35:25 PM > referral received and faxed Clinical Notes [facility] [place] Dr. Lara ph [phone], fax [phone] Reason hyponatremia, recent hospitalization [facility] Diagnosis 1 Hyponatremia (E87.1) Referral Organization [facility] Rodo [place] Dora Referring Provider First Name Jada Referring Provider Last Name [facility] Referring Provider Specialty [facility] [employer] Referred Organization [facility] Referred Address [address] [place] [place], [place],[address] Referred Provider Specialty Nephrology Referral Priority Routine Chief Complaint and Reason for Visit Chief Complaint Admit Date Diverticulitis R/O Infarction July 19, 2025 6:22pm Reason for Visit Admit Date Abnormal urinary tract, radiological Sep tember 2024 6:22pm BPH w urinary obs/LUTS July 19 6:22pm Diverticulitis July 19, 2025 6:22pm Lower abdominal pain July 19, 2025 6:22pm Reducible right inguinal hernia Septembe r 2024 6:22pm Sepsis July 19, 2025 6:22pm Spleen hematoma July 19, 2025 6:22pm 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, 2025 6:22pm Additional Source Comments (unrecognized sect ion and [...] section and content) DATE CREATED AUTHOR 06/03/2020 [facility] DATE CREATED AUTHOR AUTHOR'S ORGANIZ ATION 05/03/2024 [facility] DATE CREATED AUTHOR AUTHOR'S ORGANIZ ATION 08/17/2024 [facility] DATE CREATED AUTHOR AUTHOR'S ORGANIZ ATION 11/02/2024 [facility] DATE CREATED AUTHOR AUTHOR'S ORGANIZ ATION 11/14/2024 [facility] DATE CREATED AUTHOR AUTHOR'S ORGANIZ ATION 11/24/2024 [facility] DATE CREATED AUTHOR AUTHOR'S ORGANIZ ATION 11/25/2024 [facility] DATE CREATED AUTHOR AUTHOR'S ORGANIZ ATION 11/29/2024 [facility] DATE CREATED AUTHOR AUTHOR'S ORGANIZ ATION 12/21/2024 [facility] DATE CREATED AUTHOR AUTHOR'S ORGANIZ ATION 01/02/2025 [facility] DATE CREATED AUTHOR AUTHOR'S ORGANIZ ATION 01/11/2025 [facility] DATE CREATED AUTHOR AUTHOR'S ORGANIZ ATION 01/27/2025 [facility] DATE CREATED AUTHOR AUTHOR'S ORGANIZ ATION 02/06/2025 [facility] DATE CREATED AUTHOR AUTHOR'S ORGANIZ ATION 02/07/2025 [facility] DATE CREATED AUTHOR AUTHOR'S ORGANIZ ATION 02/22/2025 [facility] DATE CREATED AUTHOR AUTHOR'S ORGANIZ ATION 05/24/2025 [facility] DATE CREATED AUTHOR AUTHOR'S ORGANIZ ATION 06/03/2025 [facility] DATE CREATED AUTHOR AUTHOR'S ORGANIZ ATION 06/08/2025 [facility] DATE CREATED AUTHOR AUTHOR'S ORGANIZ ATION 06/09/2025 [facility] DATE CREATED AUTHOR AUTHOR'S ORGANIZ ATION 06/09/2025 [facility] DATE CREATED AUTHOR AUTHOR'S ORGANIZ ATION 06/14/2025 [facility] DATE CREATED AUTHOR AUTHOR'S ORGANIZ ATION 06/15/2025 [facility] DATE CREATED AUTHOR AUTHOR'S ORGANIZ ATION 07/23/2025 [facility] DATE CREATED AUTHOR AUTHOR'S ORGANIZ ATION 07/24/2025 [facility] DATE CREATED AUTHOR AUTHOR'S ORGANIZ ATION 07/27/2025 [facility] DATE CREATED AUTHOR AUTHOR'S ORGANIZ ATION 07/29/2025 [facility] REASON FOR VISIT (unrecogniz [...] or prosecute any alcohol or drug abuse patient.[facility] Patient Care team informatio n (unrecognized section and content) 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 Start Date End Date Edwin Garcia MD PCP - General Family Medicine 02/03/24 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 Start Date End Date Edwin Garcia MD PCP - General Family Medicine 02/03/24 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 Start Date End Date Edwin Garcia MD PCP - General Family Medicine 02/03/24 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 Start Date End Date Edwin Garcia MD PCP - General Family Medicine 02/03/24 [employer]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 Start Date End Date Edwin Garcia MD PCP - General Family Medicine 02/03/24 [employer]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 Start Date End Date Edwin Garcia MD [address] [place] [facility] [place] [address] PCP - General Family Medicine 11/26/24 [employer]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 Start Date End Date Edwin Garcia MD [address] [place] [facility] [place] [address] PCP - General Family Medicine 11/26/24 [employer]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 Start Date End Date Edwin Garcia MD [address] [place] [facility] [place] [address] PCP - General Family Medicine 11/26/24 [employer]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 Start Date End Date Edwin Garcia MD [address] [place] [facility] [place] [address] PCP - General Family Medicine 11/26/24 [employer]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 Start Date End Date Jaden Maravilla APRN - VISITOR SERVICES TECHNICIAN [address] [facility] [place] [address] PCP - General 06/05/25 [employer]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 Start Date End Date Yanique Mcneill APRN-GARAGE DOOR SERVICE TECHNICIAN [address] [place] [address] PCP - General Family Medicine 06/13/25 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 Start Date End Date Edwin Garcia MD [address] [place] [address] PCP - General Family Medicine 11/26/24 Team Status: Active Member Role Status Dates Yanique Mcneill [facility] Primary Care Provider Active Team Status: Active Member Role Status Dates Yanique Mcneill [facility] Primary Care Provider Active Start: July 19, 2025 Thalia Cervantes MD Admit Provider Active Start: S tor 2024 Thalia Cervantes MD Other Provider Active Start: S tor 2024 Dev Archuleta DO Other Provider Active Sta rt: July 19, 2025 Darien Gordillo MD Other Provider Active Start: July 19, 2025 Win Santillan DO Other Provider Active Start: Se pt2024 Axel Dee MD Attending Provider Active Sta rt: July 19, 2025 Axel Dee MD Other Provider Active Start: July 19, 2025 Zechariah Crews MD Other Provider Active Start: July 19, 2025 End: July 23, 2025 Varsha Dela Cruz MD Other Provider Active Start: Se pt2024 End: July 23, 2025 Chau Márquez MD Other Provider Active Start: July 19, 2025 End: July 23, 2025 Blossom Bee MD Other Provider Active Start : July 19, 2025 End: July 23, 2025 Rajan Aggarwal MD Other Provider Active S tart: July 19, 2025 End: July 23, 2025 Silvestre Luis MD Other Provider Active Start: July 19, 2025 End: July 23, 2025 Preethi Mena VISITOR SERVICES TECHNICIAN-C Other Provider Active Star t: July 19, 2025 End: July 23, 2025 GRETCHEN Moncada- Other Provider Active Sta rt: July 19, 2025 End: July 23, 2025 Ordered Prescriptions (unrec ognized section and content) [...] Huerta RN)1309 (Given - Provider: Pat Nieves RN)2106 (Not Given - Provider: Adia Blandon RN - Reason: Other - Comment: Pt unable to follow commands, can not take sip of water) 0635 (Given - Provider: Monico Kaiser RN)1432 (Given - Provider: Flip Dubose RN)2153 (Given - Provider: Nancy Fox, RN) 0542 (Given - Provider: Nancy Fox, RN)1527 (Not Given - Provider: Flip Dubose [...] RN) 0840 (Given - Provider: Flip Dubose, RN) pravastatin (PRAVACHOL) tablet 40 mg 40 mg, Oral, DAILY, First dose on Tue06/02/25 at 1415, Until Discontinued 0931 (Given - Provider: Pat Nieves RN) 0851 (Given - Provider: Flip Dubose, RN) 0842 (Given - Provider: Flip Dubose, RN) sodium chloride (OCEAN) 0.65 % nasal [...] Flip Dubose RN)1432 (Given - Provider: Flip Dubose, RN)1753 (Given - Provider: Flip Dubose, RN)2026 (Given - Provider: Nancy Fox, ERIN) 0206 (Given - Provider: Nancy Fox, ERIN)0542 (Given - Provider: Nancy Fox, ERIN)1036 (Given - Provider: Flip Dubose, RN)1528 (Not Given - Provider: Flip Dubose [...] mL/lumen 0932 (Given - Provider: Pat Nieves RN)2151 (Given - Provider: Adia Blandon RN) 0853 (Given - Provider: Flip Dubose RN)2014 (Given - Provider: Nancy Fox RN) 0841 (Given - Provider: Flip Dubose RN)2100 (Due) sodium chloride tablet 1 g (CANCELED) 1 g, Oral, 3 TIMES DAILY, First dose on Tue06/02/25 at 1445, Until Discontinued 0932 (Given - [...] patient anuric? No 1204 (Given - Provider: lFip Dubose RN) urea (URE-NA) packet 15 g [...] exceeded. 2140 (New Bag - Provider: Adia Blandon RN) 0248 (Stopped - Provider: Monico Kaiser RN) [...] for injection by adding 1 mL of director of rehabilitation-supplied sterile diluent or sterile water for injection to a vial containing 1 mg of the drug, to provide solutions containing 1 mg/mL. Shake vial gently to dissolve. glucose chewable tablet 16 g 16 g (4 tablet), Oral, PRN, Starting on 06/02/25 at 1205, [...] IntraVENous, EVERY 4 HOURS PRN, Starting on 06/03/25 at 1640, Until Tue06/04/25 at 1257, Agitation, Immediately prior to intravenous use, lorazepam Injection must be diluted with at least an equal volume of compatible solution (NS or D5W). 1647 (Given - Provider: Pat Nieves RN) magnesium [...] Blandon RN) 075 (Given - Provider: Flip Dubose RN) ondansetron (ZOFRAN-ODT) disintegrating tablet 4 mg(Linked Group 3) 4 mg, Oral, EVERY 8 HOURS PRN, Starting on Tue06/02/25 at 1205, Until Discontinued, Nausea, Vomiting 2139 [...] Fibrillation (NVAF) 211 (Given - Provider: Yonathan Joy, RN) 0856 (Given - Provider: Debra Huggins, ERIN)2100 (Due) atenoloL (TENORMIN) tablet 25 mg (CANCELED) 25 mg, oral, Daily, First dose on Tue06/22/25 at 0930, Hold if systolic BP <100 or hr <60 1014 (Given - Provider: Debra Huggnis, ERIN) gabapentin (NEURONTIN) capsule 300 mg (CANCELED) 300 mg, oral, Daily, First dose on Tue06/18/25 at 0900, Look-alike/sound-alike medication - verify indication for use. 0859 (Given - Provider: Lauren Gaona RN) glucagon HCL injection 1 mg (COMPLETED) 1 mg, intramuscular, Once, On Tue06/22/25 at 1530, For 1 dose 1625 (Given - Provider: Debra Huggins, ERIN) levothyroxine (SYNTHROID, LEVOTHROID) tablet 25 mcg 25 [...] Joy, ERIN) 0501 (Given - Provider: Yonathan Joy, ERIN) lidocaine (LIDODERM) 5 % 1 patch 1 [...] Lauren Gaona RN)1927 (Given - Provider: Lauren Gaona RN) 0830 (Given - Provider: Debra Huggins, ERIN)1208 (Given - Provider: Debra Huggins, ERIN)1625 (Given - Provider: Debra Huggins, ERIN) 0856 (Given - Provider: Debra Huggins RN)1203 (Given - Provider: Debra Huggins RN)1700 (Due) urea (URE-NA) packet 15 g 15 g, oral, 2 times daily, First dose on Tue06/20/25 at 1330, Mix each 15 g dose with 3 to 4 ounces of water or juice. 0904 (Given - Provider: Lauren Gaona RN)2030 (Given - Provider: Yonathan Joy RN) 0831 (Given - Provider: Debra Huggins, ERIN)2113 (Given - Provider: Yonathan Joy, ERIN) 0857 (Given - Provider: Debra Huggins RN)2099 (Due) warfarin (COUMADIN) tablet 2.5 mg (CANCELED) [...] Medication Order 06/21/2025 06/22/2025 06/23/2025 heparin infusion 05612 units/500 mL in 0.45% NaCl (50 units/mL [...] at 2237 0141 (See Alternative - Provider: Yonathan Joy RN) calcium gluconate 3,000 mg in [...] 0928 (See Alternativ e - Provider: Debra Huggins RN)1328 (See Alternative - Provider: Debra Huggins RN) magnesium sulfate IVPB 4000 mg/100 mL in iso-osmotic water (40 mg/mL premix)(Linked Group 2) 4,000 mg, intravenous, at 25 mL/hr, Administer over 240 Minutes, As needed, for magnesium level 1.6 mg/mL or less, or ionized magnesium level 0.44 mmol/L or less, Starting on 06/17/25 at 1622, Use premix solution. Default to ionized magnesium level in cases where patient has both magnesium and ionized magnesium results. If administered, check ionized magnesium (or total magnesium if ionized magnesium unavailable) level 4 hours after infusion. 0928 (New Bag - Provider: Debra Huggins, ERIN)1328 (Stop Bag - Provider: Debra Huggins RN) potassium chloride (K-TAB,KLOR-CON) CR tablet 20-60 mEq(Linked [...] intravenous, As needed, line care, Starting on Tue06/17/25 at 1612 0831 (Given - Provider: Debra [...] Give with a full glass of water. Goals (unrecognized section and content) Goals may be documented in a n alternate section FOR RECORDS PERTAINING TO PATIENTS WHO ARE [...] BE BASED ON THE PRIMARY CLINICAL RECORDS. [employer] provides no warranty or guarantee of the accuracy or completeness of information in this document.
[2025-07-30 07:31] LABS: Hematocrit 39.4 % (42.0-54.0); Hemoglobin 14.7 g/dL (14.0-18.0); Immature Granulocytes Abs Auto 0.00 10^3/uL (0.00-0.03); Immature Granulocytes Pct Auto 0.0 % (0.0-0.5); Lymphocytes Absolute Auto 1.7 10^3/uL (1.2-3.8); Mean Corpuscular HGB Conc 37.3 g/dL (29.9-35.2); Mean Corpuscular Hemoglobin 31.8 pg (25.9-34.0); Mean Corpuscular Volume 85.3 fL (80.0-94.0); Platelet Count 288 10^3/uL (150-450); Red Blood Count 4.62 10^6/uL (4.70-6.10); White Blood Count 5.3 10^3/uL (4.0-11.0)
[2025-07-30 07:39] LABS: Magnesium 1.8 mg/dL (1.8-2.4)
[2025-07-30 07:47] LABS: INR 1.14; Prothrombin Time 11.9 sec (9.0-11.6)
[2025-07-30 07:48] LABS: Alanine Aminotransferase 23 U/L (16-63); Albumin Globulin Ratio 1.1; Albumin Level 4.0 g/dL (3.4-5.0); Alkaline Phosphatase 88 U/L (46-116); Anion Gap 12.7; Aspartate Amino Transferase 24 U/L (15-37); Blood Urea Nitrogen 20.0 mg/dL (7.0-18.0); Calcium 9.6 mg/dL (8.5-10.1); Carbon Dioxide 25.9 mmol/L (21.0-32.0); Chloride 87 mmol/L (98-107); Estimated GFR (African America >60 (>=60 mL/min/1.73m^2); Estimated GFR (Non-African Ame >60 (>=60 mL/min/1.73m^2); Globulin 3.7 g/dL; Glucose 121 mg/dL (74-106); Potassium 4.6 mmol/L (3.5-5.1); Total Protein 7.7 g/dL (6.4-8.2)
[2025-07-30 07:50] LABS: Sodium 121 mmol/L (136-145)
[2025-07-30 08:22] LABS: Lactate/Lactic Acid 1.2 mmol/L (0.4-2.0)
[2025-07-30] MEDS: 0.9 % SODIUM CHLORIDE 1,000 ML 250 ML IV (08:39)
--- OUTSIDE RECORDS SUMMARY | 2025-07-30 10:12 | XMS_ITS | CCD ---
Author Organization [facility] Care Team Providers Care Logistics Supply Officer Name Role Phone Jada Rene Unavailable Unavailable Primary Care Provider UnavailEdwin Fletcher Primary Care Physician [phone] Irene COHN, Nathaniel Longo Attending Unavailable Edwin Garcia MD Primary Care Provider Edwin Garcia Attending Unavailable Edwin Garcia Admitting [...] Unavailable Kirnus, Kashif D Attending Unavailable Jules ASTRO TECHNICIAN - PHYSIOTHERAPY ASSISTANTJaden Primary Care Provider Edwin Garcia Referring Unavailable [...] Unavailable REYES, YANIQUE A Attending Unavailable REYES, YAINQUE A Admitting Unavailable REYES, YANIQUE A Attending [...] Unavailable MD Edwin Garcia Attending Unavailable Reyes ASTRO TECHNICIAN-Yanique QUAN Primary Care Provider YANIQUE MCNEILL A Attending Unavailable Jules Jaden L Attending Unavailable REYES, YANIQUE A Attending Unavailable REYES, YANIQUE A Attending Unavailable REYES, YANIQUE A Admitting Unavailable REYES, YANIQUE A Attending Unavailable REYES, YANIQUE A Attending Unavailable REYES, YANIQUE A Admitting Unavailable REYES, YANIQUE A Admitting Unavailable REYES, YANIQUE A Admitting Unavailable Reyes PEANUT SORTER-BC, Yanique A Primary Care Provider Billy COHN, Thalia Admit Provider Billy COHN, Thalia Other Provider Dev Archuleta DO Other Provider [phone] Duy COHN, [place] Other Provider Win Santillan DO Other Provider Leila COHN, Axel Attending Provider [phone] Axel Dee MD Other Provider Thalia Cervantes [...] Unavailable REYES, YANIQUE A Admitting Unavailable REYES, BUSINESS PROCESS CONSULTANT YANIQUE A Admitting UnavailZechariah Little Attending Unavailable REYES, BUSINESS PROCESS CONSULTANT YANIQUE A Attending Unavailrogerio e Allergies Allergy Classification Reported Allergen(s) Allergy Type Date of Onset Reaction(s) Facility (12 sources) No Known Medication Allergies; Translations: [No Known Medication Allergies] Propensity to adverse reactions (disorder) [facility] Repository Medications Current Medications Medication [...] every four hours as needed for pain [place] 325 mg-5 mg oral tablet See Instructions, for pain, 10 tab(s), Refill(s) 0, 1 tab(s) Oral q4hr PRN Pain. Duration 7 days., [facility]/pharmacy #[id number], 180.5, cm, 03/20/24 15:05:00 [...] # 90 tab(s), Refills(s) 1, Pharmacy: [facility], 178, cm, 09/10/24 13:01:00 EDT, Height/Length Dosing, 80.1, kg, 09/10/24 13:01:00 EDT, Weight Dosing Start Date: 10/22/24 Status: Ordered Quantity: 90.0 Unit: tab(s) Repeat number: 2 Start: 04-20-2024 atenolol 25 mg Tab See Instructions, take 1/2 tab daily, # 30 tab(s), Refills(s) 5, Pharmacy: [facility]/pharmacy #[id number], 180, cm, 04/20/24 13:27:00 EDT, [...] Corticosteroid Start: 08-31-20 fluticasone Nasal 0.05 mg/inh [place] See Instructions, 48 mL, Refill(s) 1, USE 1 SPRAY IN EACH NOSTRIL TWICE A DAY, [facility] STORE [id number], 178, cm, 08/28/24 14:50:00 EDT, Height/Length Dosing, 82.2, kg, 08/28/24 14:50:00 EDT, Weight Dosing Start Date: 08/31/24 Status: Ordered Start: 07-03-2024 take 1 spray(s) nasa l route twice daily Flonase 0.05 mg/inh [place] 1 spray(s), Nasal, BID, 16 gram, Refill(s) 0, each nostril, [facility]/pharmacy #[id number], 178, cm, 07/03/24 10:05:00 [...] 90 tab(s), Refills(s) 1, Pharmacy: [facility] STORE [id number], 178.6, cm, 02/05/25 13:36:00 EDT, Height/Length Dosing, 82.2, kg, 02/05/25 13:36:00 EDT, Weight Dosing Start Date: 03/07/25 Status: Ordered Quantity: 90.0 Unit: tab(s) Repeat number: 1 Start: 08-20-2024 Synthroid 25 m cg(0.025 mg) Tab See Instructions, TAKE 1 TABLET DAILY ON AN EMPTY STOMACH, # 3 tab(s), Refills(s) 0, Pharmacy: [facility]/pharmacy #[id number], 178, cm, 08/07/24 10:59:00 EDT, Height/Length Dosing, 78.2, kg, 08/07/24 10:59:00 EDT, Weight Dosing Start Date: 08/20/24 Status: Ordered Quantity: 3.0 Unit: tab(s) Repeat number: 1 Start: 02-13-2024 take 1 tablet by alyssa th once daily levothyroxine 25 mcg (0.025 mg) Tab 25 mcg = 1 tab(s), Oral, Daily, on an empty stomach, # 90 tab(s), Refills(s) 1, Pharmacy: [facility], 178.2, cm, 02/02/24 10:29:00 EDT, [...] # 30 tab(s), Refills(s) 2, Pharmacy: [facility], 178.6, cm, 02/05/25 13:36:00 EDT, Height/Length Dosing, 82.2, kg, 02/05/25 13:36:00 EDT, Weight Dosing Start Date: 04/25/25 Status: Ordered Quantity: 30.0 Unit: tab(s) Repeat number: 3 Start: 01-07-2025 take 1 tablet by alyssa th once daily meloxicam 7.5 mg Tab 7.5 mg = 1 tab(s), Oral, Daily, TAKE 1 TABLET DAILY, # 30 tab(s), Refills(s) 2, Pharmacy: [facility], 178.6, cm, 12/24/24 13:13:00 EST, Height/Length Dosing, 79, kg, 12/24/24 13:13:00 EST, Weight Dosing Start Date: 01/07/25 Status: Ordered Quantity: 30.0 Unit: tab(s) Repeat number: 3 Start: 12-06-2024 take 1 tablet by alyssa th once daily meloxicam 7.5 mg Tab 7.5 mg = 1 tab(s), Oral, Daily, TAKE 1 TABLET DAILY, # 30 tab(s), Refills(s) 2, Pharmacy: [facility], 178.6, cm, 11/01/24 9:21:00 EST, [...] # 5 tab(s), Refills(s) 0, Pharmacy: [facility], 178, cm, 07/03/24 10:05:00 EDT, [...] (2 times per day), First dose on [place] 06/02/25 at 2100, Until Discontinued, For Line [...] HOURS, First dose (after last modification) on [place] 06/02/25 at 1415, Until Discontinued Start: 06-02-2025 IntraVENous, a t 5-250 mL/hr, PRN, if patient receiving piggyback infusions and maintenance fluids are not ordered, Starting on [place] 06/02/25 at 1205, For piggyback infusion, administer [...] needed 10 mL, IntraVENous, PRN, Starting on [place] 06/02/25 at 1205, Until Discontinued, Line Care, After every IV line use Start: 05-14-2025 End: 06-05-2025 take 1000 mg by mouth three times daily 1,000 mg, oral, 3 times daily around food, First dose (after last modification) on [facility] 06/20/25 at 1700 Start: 05-14-2025 Sodium Chlorid e 1 g oral tablet See Instructions, Take 1g BID daily, # 180 tab(s), Refills(s) 0, Pharmacy: [facility]/pharmacy #[id number], 178.6, cm, 05/09/25 8:18:00 EDT, Height/Length Dosing, 80.6, kg, 06/26/25 8:18:00 EDT, Weight Dosing Start Date: 05/14/25 Status: Ordered Quantity: 180.0 Unit: tab(s) Repeat number: 1 Start: 02-06-2025 Sodium Chlorid e 1 g oral tablet See Instructions, Take 1g BID daily, # 60 tab(s), Refills(s) 3, [id number] 178[facility]6, cm, 02/05/25 13:36:00 EDT, Height/Length Dosing, 82.2, kg, 02/05/25 13:36:00 EDT, Weight Dosing Start Date: 02/06/25 Status: Ordered Quantity: 60.0 Unit: tab(s) Repeat number: 4 Start: 01-24-2025 take 1 tablet by alyssa th twice daily Sodium Chloride 1 g oral tablet See Instructions, 1 gram orally BID, # 180 tab(s), Refills(s) 0, Pharmacy: [facility], 178.6, cm, 01/24/25 13:29:00 EDT, Height/Length Dosing, 82.7, kg, 01/24/25 13:29:00 EDT, Weight Dosing Start Date: 01/24/25 Status: Ordered Start: 01-07-2025 take 1 tablet by mouth once da rasta Sodium Chloride 1 g oral tablet See Instructions, 1 gram orally daily, # 90 tab(s), Refills(s) 0, [id number] 178[facility]6, cm, 12/24/24 13:13:00 EST, Height/Length Dosing, 79, kg, 12/24/24 13:13:00 EST, Weight Dosing Start Date: 01/07/25 Status: Ordered Start: 12-26-2024 take 1 tablet by mouth once da rasta Sodium Chloride 1 g oral tablet See Instructions, 1 gram orally daily, # 90 tab(s), Refills(s) 0, Pharmacy: [facility], 178.6, cm, 12/24/24 13:13:00 EST, Height/Length Dosing, 79, kg, 12/24/24 13:13:00 EST, Weight Dosing Start Date: 12/26/24 Status: Ordered Start: 12-17-2024 take 1 tablet by mouth once da rasta Sodium Chloride 1 g oral tablet See Instructions, 1 gram orally daily, # 90 tab(s), Refills(s) 0, Pharmacy: [facility], 178.6, cm, 12/17/24 15:05:00 EST, Height/Length Dosing, 78.5, kg, 12/17/24 15:05:00 EST, Weight Dosing Start Date: 12/17/24 Status: Ordered Start: 06-27-2024 take 1 tablet by mouth once da rasta Sodium Chloride 1 g oral tablet See Instructions, 1 gram orally daily, # 90 tab(s), Refills(s) 0, [id number] 178, cm, 06/11/24 12:53:00 EDT, Height/Length [...] DAY, # 90 tab(s), Refills(s) 2, [id number] 180[facility]5, cm, 03/20/24 15:05:00 EDT, Height/Length [...] # 90 tab(s), Refills(s) 2, Pharmacy: [facility], 178.2, cm, 12/01/23 13:40:00 EST, Height/Length Dosing, 85.5, kg, 12/01/23 13:40:00 EST, Weight Dosing Start Date: 12/23/23 Status: Ordered Sodium Chloride 1000 mg oral tablet, soluble (1 source) Start: 11-13-2024 take 1 tablet by mouth once daily Sodium Chloride 1000 mg oral tablet, soluble See Instructions, 30 tab(s), Refill(s) 0, Take one tablet daily, [facility]/pharmacy #[id number], 178.6, cm, 11/01/24 9:21:00 [...] dysfunction, # 7 tab(s), Refills(s) 0, Pharmacy: [facility]/pharmacy #[id number], 178.6, cm, 02/05/25 13:36:00 EDT, Height/Length [...] for injection by adding 1 mL of seed district sales manager-supplied sterile diluent or sterile water for injection [...] by mouth daily Suspended polyethylene glycol 3350 [id number] mg powder for oral solution (1 source) [...] Comment on above: Take 1 capsule by [facility] daily at bedtime. tolvaptan (SAMSCA) pre-split tablet [...] (3 sources) take 1 capsule by mo [facility] in the morning coenzyme [id number] E 100-5 mg-unit capsule Take 100 mg [...] Coronary atherosclerosis; Translations: [Atherosclerotic heart disease of [place] coronary artery without angina pectoris] Onset: 4 [...] sources) Long-term current use of anticoagulant; Translations: [roasterman (current) use of anticoagulants] Episodic Other aftercare (3 sources) roasterman (current) use of anticoagulants Episodic Other aftercare (1 source) Post-discharge follow-up 12-17-2024 Episodic Other aftercare (2 sources) Anticoagulant effect; Translations: [roasterman (current) use of anticoagulants] Onset: 5 06-02-2025 [...] vascular disease; Translations: [Atherosclerotic heart disease of [place] coronary artery without angina pectoris] Onset: 5 [...] AM EDT With: YANIQUE MCNEILL CNP Where: [address] [place] [address]- [id number] 8:00 AM EDT With: Where: [facility] [address] [address]- Medications What How Much When Why Instructions [...] disease BMI 23.0-23.9, adult Nonsmoker Natural Lemon Kake flavor Unchanged pravastatin (pravastatin 40 mg Tab) [...] Erectile dysfuncti (more content not included)... Normal [facility] Office/Clini c Noteon 07-25-2025 Family [...] health services, although they were ordered by [facility] to assist with gastrointestinal and genitourinary [...] 7.5 mg (more content not included)... Normal [facility] Comment on above: Result Comment: Elec tronically Signed By: YANIQUE MCNEILL CNP\.claudio\Date and Time Signed: 07/25/25 11:58 EDT Glucose Poct Glucometerson 0 07-23-2025 Glucose [Mass/Vol] 137 mg/dL Normal [facility] Comment on above: Result Comment: [place] Glucose Reference Range is dependent on time and content of last meal. Glucose of more than 200 mg/dL in a nonstressed, ambulatory subject supports the diagnosis of Diabetes Mellitus. PERFORMED BY: [address] [place] [address] PATHOLOGIST SECURITY CONTROL ROOM OFFICER MARIAM WANG M.D. Performed By: #### C DT #### [facility] [address] [id number] [facility] CBC W Auto Differential pane l (Bld)on 07-22-2025 Basophils (Bld) [#/Vol] 0 10*3/uL 0.0 - 0.2 10*3/uL [facility] Basophils/100 WBC Manual cnt (Syn fld) 0.4 % . [facility] care Eosinophils (Bld) [#/Vol] 0.1 10*3/uL 0.0 - 0.45 10*3/uL [facility] Eosinophils/100 WBC Manual cnt (Syn fld) 2.2 % . [facility] Erythrocyte distribution width (RBC) [Ratio] 13.6 % 12.0 - 14.8 % [facility] Hematocrit (Bld) [Volume fraction] 32.4 % Low 38.8 - 50.0 % [facility] Hemoglobin (Bld) [Mass/Vol] 11.2 g/dL Low 13.0 - 17.0 g/dL [facility] Interpretation and review of laboratory results Abnormal [facility] Lymphocytes (Bld) [#/Vol] 1.2 10*3/uL 1.00 - 4.8 10*3/uL [facility] Lymphocytes/100 WBC Manual cnt (Syn fld) 16.8 % . [facility] MCH (RBC) [Entitic mass] 31.5 pg 27.5 - 35.2 pg [facility] MCHC (RBC) [Mass/Vol] 34.4 g/dL 32.5 - 35.6 g/dL [facility] MCV (RBC) [Entitic vol] 91.5 fL 83.5 - 101 fL [facility] Monocytes (Bld) [#/Vol] 0.6 10*3/uL 0.0 - 0.8 10*3/uL [facility] Monocytes+Macrophages /100 WBC Manual cnt (Syn fld) 8.3 % . [facility] Neutrophils (Bld) [#/Vol] 5 10*3/uL 1.8 - 7.7 10*3/uL [facility] Neutrophils/100 WBC Manual cnt (Syn fld) 72.3 % . [facility] NRBC 0.1 /100{WBC} 0 - 0.5 /100{WBC} [facility] Platelet mean volume (Bld) [Entitic vol] 8.8 fL 6.6 - 10.1 fL [facility] Platelets (Bld) [#/Vol] 157 10*3/uL 150 - 450 10*3/uL [facility] RBC LM.HPF (Urine sed) [#/Area] 3.54 10*6/uL Low 3.90 - 5.60 10*6/uL [facility] WBC (Bld) [#/Vol] 6.9 10*3/uL 4.1 - 10.5 10*3/uL [facility] WBC LM.HPF (Urine sed) [#/Area] 6.9 [CFU]/mL 4.1 - 10.5 [CFU]/mL [facility] Health[facility] e Complete Blood Count Auto Di ffon 07-22-2025 Basophils (Bld) [#/Vol] 0.0 10*3/uL Normal 0.0-0.2 [facility] Comment on above: Result Comment: PERF ORMED BY: [place] [address] PATHOLOGIST SECURITY CONTROL ROOM OFFICER MARIAM WANG M.D. Performed By: #### C DT #### [address] Basophils/100 WBC (Bld) 0.4 % Normal . [facility] Comment on above: Performed By: #### C DT #### [place] [address] [place] Eosinophils (Bld) [#/Vol] 0.1 10*3/uL Normal 0.0-0.45 [facility] Comment on above: Performed By: #### C DT #### [place] [address] [place] Eosinophils/100 WBC (Bld) 2.2 % Normal . [facility] Comment on above: Performed By: #### C DT #### [address] Erythrocyte distribution width (RBC) [Ratio] 13.6 % Normal 12.0-14.8 [facility] Comment on above: Performed By: #### C DT #### [address] Hematocrit (Bld) [Volume fraction] 32.4 % Low 38.8-50.0 [facility] Comment on above: Performed By: #### C DT #### [address] Hemoglobin (Bld) [Mass/Vol] 11.2 g/dL Low 13.0-17.0 [facility] Comment on above: Performed By: #### C DT #### [address] Lymphocytes (Bld) [#/Vol] 1.2 10*3/uL Normal 1.00-4.8 [facility] Comment on above: Performed By: #### C DT #### [address] Lymphocytes/100 WBC (Bld) 16.8 % Normal . [facility] Comment on above: Performed By: #### C DT #### [address] MCH (RBC) [Entitic mass] 31.5 pg Normal 27.5-35.2 [facility] Comment on above: Performed By: #### C DT #### [address] MCV (RBC) [Entitic vol] 91.5 fL Normal 83.5-101 [facility] Comment on above: Performed By: #### C DT #### [address] Mean Corpuscular HGB Conc 34.4 g/dL Normal 32.5-35.6 [facility] Comment on above: Performed By: #### C DT #### [address] Monocytes (Bld) [#/Vol] 0.6 10*3/uL Normal 0.0-0.8 [facility] Comment on above: Performed By: #### C DT #### [address] Monocytes/100 WBC (Bld) 8.3 % Normal . [facility] Comment on above: Performed By: #### C DT #### [address] Neutrophils (Bld) [#/Vol] 5.0 10*3/uL Normal 1.8-7.7 [facility] Comment on above: Performed By: #### C DT #### [address] Neutrophils/100 WBC (Bld) 72.3 % Normal . [facility] Comment on above: Performed By: #### C DT #### [address] NRBC% 0.1 /100{WBC} Normal 0-0.5 [facility] Comment on above: Performed By: #### C DT #### [address] Platelet mean volume (Bld) [Entitic vol] 8.8 fL Normal 6.6-10.1 [facility] Comment on above: Performed By: #### C DT #### [address] Platelets (Bld) [#/Vol] 157 10*3/uL Normal 150-450 [facility] Comment on above: Performed By: #### C DT #### [place] [address] [place] RBC (Bld) [#/Vol] 3.54 10*6/uL Low 3.90-5.60 [facility] Comment on above: Performed By: #### C DT #### [place] [address] [place] WBC (Bld) [#/Vol] 6.9 10*3/uL Normal 4.1-10.5 [facility] Comment on above: Performed By: #### C DT #### [address] White Blood Count 6.9 [CFU]/mL Normal 4.1-10.5 [facility] Comment on above: Performed By: #### C DT #### [facility] [address] [id number] [facility] Comprehensive Metabolic Pane patricio 07-22-2025 Albumin [Mass/Vol] 3.4 g/dL Low 3.5-5.7 [facility] Comment on above: Order Comment: per r n isaias. arr 0851. Performed By: #### G LULS #### Point of Care testing , Albumin/Globulin [Mass ratio] 1.5 {ratio} Normal [facility] Comment on above: Order Comment: per r n isaias. arr 0851. Performed By: #### G LULS #### Point of Care testing , ALP [Catalytic activity/Vol] 73 U/L Normal 34-104 [facility] Comment on above: Order Comment: per r n isaias. arr 0851. Performed By: #### G LULS #### Point of Care testing , ALT [Catalytic activity/Vol] 15 U/L Normal 7-52 [facility] Comment on above: Order Comment: per r n isaias. arr 0851. Performed By: #### G LULS #### Point of Care testing , Anion gap [Moles/Vol] 6.6 mmol/L Normal 6.0-15.0 [facility] Comment on above: Order Comment: per r n isaias. arr 0851. Performed By: #### G LULS #### Point of Care testing , AST [Catalytic activity/Vol] 22 U/L Normal 13-39 [facility] Comment on above: Order Comment: per r n isaias. arr 0851. Performed By: #### G LULS #### Point of Care testing , Bilirubin [Mass/Vol] 0.6 mg/dL Normal 0.3-1.0 [facility] Comment on above: Order Comment: per r n isaias. arr 0851. Performed By: #### G LULS #### Point of Care testing , Calcium [Mass/Vol] 8.5 mg/dL Low 8.6-10.3 [facility] Comment on above: Order Comment: per r romina esparza. arr 0851. Performed By: #### G LULS #### Point of Care testing , Chloride [Moles/Vol] 101 mmol/L Normal 98-107 [facility] Comment on above: Order Comment: per r romina esparza. arr 0851. Performed By: #### G LULS #### Point of Care testing , CO2 [Moles/Vol] 27.1 mmol/L Normal 21.0-31.0 [facility] Comment on above: Order Comment: per r romina esparza. arr 0851. Performed By: #### G LULS #### Point of Care testing , Creatinine [Mass/Vol] 0.83 mg/dL Normal 0.70-1.30 [facility] Comment on above: Order Comment: per r romina esparza. arr 0851. Performed By: #### G LULS #### Point of Care testing , Creatinine Clr Calc Pharmacy 71.82 Normal [facility] Comment on above: Order Comment: per r romina esparza. arr 0851. Result Comment: PERF ORMED BY: [address] [place] [address] PATHOLOGIST SECURITY CONTROL ROOM OFFICER MARIAM WANG M.D. Performed By: #### G LULS #### Point of Care testing , GFR/1.73 sq M.predicted MDRD (S/P/Bld) [Vol rate/Area] mL/min/{1.73_m2} Normal [facility] Comment on above: Order Comment: per r romina esparza. arr 0851. Performed By: #### G LULS #### Point of Care testing , Globulin (S) [Mass/Vol] 2.3 g/dL Normal [facility] Comment on above: Order Comment: per r romina esparza. arr 0851. Performed By: #### G LULS #### Point of Care testing , Glucose [Mass/Vol] 116 mg/dL High 70-100 [facility] Comment on above: Order Comment: per r romina esparza. arr 0851. Result Comment: [facility] Glucose Reference Range is dependent on time and content of last meal. Glucose of more than 200 mg/dL in a nonstressed, ambulatory subject supports the diagnosis of Diabetes Mellitus. ADA recommended reference range Performed By: #### G LULS #### Point of Care testing , Potassium [Moles/Vol] 3.7 mmol/L Normal 3.5-5.1 [facility] Comment on above: Order Comment: per joyce esparza. arr 0851. Performed By: #### G LULS #### Point of Care testing , Protein [Mass/Vol] 5.7 g/dL Low 6.4-8.9 [facility] Comment on above: Order Comment: per joyce esparza. arr 0851. Performed By: #### G LULS #### Point of Care testing , Sodium [Moles/Vol] 131 mmol/L Low 136-145 [facility] Comment on above: Order Comment: per joyce esparza. arr 0851. Performed By: #### G LULS #### Point of Care testing , Urea nitrogen [Mass/Vol] 12 mg/dL Normal 7-25 [facility] Comment on above: Order Comment: per joyce esparza. arr 0851. Performed By: #### G LULS #### Point of Care testing , Glucose Poct Glucometerson 0 07-22-2025 Glucose [Mass/Vol] 168 mg/dL Normal [facility] Comment on above: Result Comment: [facility] Glucose Reference Range is dependent on time and content of last meal. Glucose of more than 200 mg/dL in a nonstressed, ambulatory subject supports the diagnosis of Diabetes Mellitus. PERFORMED BY: [facility] [address] [place] [address] PATHOLOGIST SECURITY CONTROL ROOM OFFICER MARIAM WANG M.D. Performed By: #### G LULS #### Point of Care testing , Glucose [Mass/Vol] 70 mg/dL Normal [facility] Comment on above: Result Comment: [facility] Glucose Reference Range is dependent on time and content of last meal. Glucose of more than 200 mg/dL in a nonstressed, ambulatory subject supports the diagnosis of Diabetes Mellitus. PERFORMED BY: [place] [id number] PATHOLOGIST SECURITY CONTROL ROOM OFFICER MARIAM WANG M.D. Performed By: #### G LULS #### Point of Care testing , Glucose [Mass/Vol] 94 mg/dL Normal [facility] Comment on above: Result Comment: [place] [facility] Glucose Reference Range is dependent on time and content of last meal. Glucose of more than 200 mg/dL in a nonstressed, ambulatory subject supports the diagnosis of Diabetes Mellitus. PERFORMED BY: [place] [id number] PATHOLOGIST SECURITY CONTROL ROOM OFFICER MARIAM WANG M.D. Performed By: #### C DT #### [address] Glucose [Mass/Vol] 86 mg/dL Normal [facility] Comment on above: Result Comment: [place] [facility] Glucose Reference Range is dependent on time and content of last meal. Glucose of more than 200 mg/dL in a nonstressed, ambulatory subject supports the diagnosis of Diabetes Mellitus. PERFORMED BY: [place] [address] PATHOLOGIST SECURITY CONTROL ROOM OFFICER MARIAM WANG M.D. Performed By: #### C DT #### [address] Glucose [Mass/Vol] 63 mg/dL Normal [facility] Comment on above: Result Comment: [place] [facility] Glucose Reference Range is dependent on time and content of last meal. Glucose of more than 200 mg/dL in a nonstressed, ambulatory subject supports the diagnosis of Diabetes Mellitus. PERFORMED BY: [place] [id number] PATHOLOGIST SECURITY CONTROL ROOM OFFICER MARIAM WANG M.D. Performed By: #### G LULS #### Point of Care testing , Vancomycin,Troughon --20 25 Vancomycin,Trough 12.0 Normal 10.0-20.0 [facility] Comment on above: Order Comment: > or = to 3 loose/watery stools in the last 24 HRS? Y Is patient on promotility agents or tube feeding? N Result Comment: Last dose: - PERFORMED BY: [place] [address] PATHOLOGIST SECURITY CONTROL ROOM OFFICER MARIAM WANG M.D. Performed By: #### C DT #### [place] [id number] [facility] C-Reactive Proteinon 025 C-Reactive Protein 12.1 mg/dL High 0.0-0.5 [facility] Comment on above: Result Comment: PERF ORMED BY: [place] [address] PATHOLOGIST SECURITY CONTROL ROOM OFFICER MARIAM WANG M.D. Performed By: #### C DT #### [place] [id number] [facility] CRP [Mass/Vol]on 07-21-2025 C-REACTIVE PROTEIN 12.1 mg/dL High 0.0 - 0.5 mg/dL [facility] Interpretation and review of laboratory results [facility]normal [facility] angio abdomen pelv[facility] CT angio abdomen pelvis [facility] [address] [place] [address] CT Scan Report Signed Patient: Dariel Zabala MR#: [id number] 9 : 1940 Acct:[id number] Age/Sex: 85 / M ADM Date: 07/19/25 Loc: Room: [address] [place] [address] Type: ADM IN Attending Dr: Thalia Cervantes [...] Jr., MiriamOShanna 07/21/2025 1:05 PM Dictation Location: [facility] Transcribed By: [facility] 07/21/25 1305 Dictated By: Dariel Gooden Jr, DO 07/21/25 1258 Signed By: 07/21/25 1305 Normal [facility] Complete Blood Count Auto Di ffon 07-21-2025 Basophils (Bld) [#/Vol] 0.0 10*3/uL Normal 0.0-0.2 [facility] Comment on above: Result Comment: PERF ORMED BY: [address] [place] [address] PATHOLOGIST SECURITY CONTROL ROOM OFFICER MARIAM WANG M.D. Performed By: #### C MP, MG, CBC #### [facility] [address] Basophils/100 WBC (Bld) 0.4 % Normal . [facility] Comment on above: Performed By: #### C MP, MG, CBC #### [facility] [address] Eosinophils (Bld) [#/Vol] 0.1 10*3/uL Normal 0.0-0.45 [facility] Comment on above: Performed By: #### C MP, MG, CBC #### [address] Eosinophils/100 WBC (Bld) 1.8 % Normal . [facility] Comment on above: Performed By: #### C MP, MG, CBC #### [address] Erythrocyte distribution width (RBC) [Ratio] 13.9 % Normal 12.0-14.8 [facility] Comment on above: Performed By: #### C MP, MG, CBC #### [address] Hematocrit (Bld) [Volume fraction] 34.5 % Low 38.8-50.0 [facility] Comment on above: Performed By: #### C MP, MG, CBC #### [address] Hemoglobin (Bld) [Mass/Vol] 12.1 g/dL Low 13.0-17.0 [facility] Comment on above: Performed By: #### C MP, MG, CBC #### [place] [address] [place] Lymphocytes (Bld) [#/Vol] 0.9 10*3/uL Low 1.00-4.8 [facility] Comment on above: Performed By: #### C MP, MG, CBC #### [facility] [address] [place] [address] [place] Lymphocytes/100 WBC (Bld) 13.4 % Normal . [facility] Comment on above: Performed By: #### C MP, MG, CBC #### [address] MCH (RBC) [Entitic mass] 31.9 pg Normal 27.5-35.2 [facility] Comment on above: Performed By: #### C MP, MG, CBC #### [address] MCV (RBC) [Entitic vol] 91.1 fL Normal 83.5-101 [facility] Comment on above: Performed By: #### C MP, MG, CBC #### [address] Mean Corpuscular HGB Conc 35.0 g/dL Normal 32.5-35.6 [facility] Comment on above: Performed By: #### C MP, MG, CBC #### [address] Monocytes (Bld) [#/Vol] 0.5 10*3/uL Normal 0.0-0.8 [facility] Comment on above: Performed By: #### C MP, MG, CBC #### [address] Monocytes/100 WBC (Bld) 7.1 % Normal . [facility] Comment on above: Performed By: #### C MP, MG, CBC #### [address] Neutrophils (Bld) [#/Vol] 5.0 10*3/uL Normal 1.8-7.7 [facility] Comment on above: Performed By: #### C MP, MG, CBC #### [address] Neutrophils/100 WBC (Bld) 77.3 % Normal . [facility] Comment on above: Performed By: #### C MP, MG, CBC #### [address] NRBC% 0.1 /100{WBC} Normal 0-0.5 [facility] Comment on above: Performed By: #### C MP, MG, CBC #### [address] Platelet mean volume (Bld) [Entitic vol] 8.9 fL Normal 6.6-10.1 [facility] Comment on above: Performed By: #### C MP, MG, CBC #### [address] Platelets (Bld) [#/Vol] 136 10*3/uL Low 150-450 [facility] Comment on above: Performed By: #### C MP, MG, CBC #### [address] RBC (Bld) [#/Vol] 3.79 10*6/uL Low 3.90-5.60 [facility] Comment on above: Performed By: #### C MP, MG, CBC #### [address] WBC (Bld) [#/Vol] 6.5 10*3/uL Normal 4.1-10.5 [facility] Comment on above: Performed By: #### C MP, MG, CBC #### [address] White Blood Count 6.5 [CFU]/mL Normal 4.1-10.5 [facility] Comment on above: Performed By: #### C MP, MG, CBC #### [address] Comprehensive Metabolic Pane patricio 07-21-2025 Albumin [Mass/Vol] 3.4 g/dL Low 3.5-5.7 [facility] Comment on above: Performed By: #### C MP, MG, CBC #### [address] Albumin/Globulin [Mass ratio] 1.4 {ratio} Normal [facility] Comment on above: Performed By: #### C MP, MG, CBC #### [address] ALP [Catalytic activity/Vol] 62 U/L Normal 34-104 [facility] Comment on above: Performed By: #### C MP, MG, CBC #### [address] ALT [Catalytic activity/Vol] 10 U/L Normal 7-52 [facility] Comment on above: Performed By: #### C MP, MG, CBC #### [facility] [address] [place] [address] Anion gap [Moles/Vol] 7.7 mmol/L Normal 6.0-15.0 [facility] Comment on above: Performed By: #### C MP, MG, CBC #### [address] AST [Catalytic activity/Vol] 14 U/L Normal 13-39 [facility] Comment on above: Performed By: #### C MP, MG, CBC #### [address] Bilirubin [Mass/Vol] 1.1 mg/dL High 0.3-1.0 [facility] Comment on above: Performed By: #### C MP, MG, CBC #### [facility] [address] [place] [address] Calcium [Mass/Vol] 8.4 mg/dL Low 8.6-10.3 [facility] Comment on above: Performed By: #### C MP, MG, CBC #### [facility] [address] [place] [address] [place] Chloride [Moles/Vol] 102 mmol/L Normal 98-107 [facility] Comment on above: Performed By: #### C MP, MG, CBC #### [facility] [address] [place] [address] CO2 [Moles/Vol] 26.2 mmol/L Normal 21.0-31.0 [facility] Comment on above: Performed By: #### C MP, MG, CBC #### [facility] [address] [place] [address] Creatinine [Mass/Vol] 0.88 mg/dL Normal 0.70-1.30 [facility] Comment on above: Performed By: #### C MP, MG, CBC #### [address] Creatinine Clr Calc Pharmacy 67.74 Normal [facility] Comment on above: Performed By: #### C MP, MG, CBC #### [place] [address] [place] GFR/1.73 sq M.predicted MDRD (S/P/Bld) [Vol rate/Area] mL/min/{1.73_m2} Normal [facility] Comment on above: Performed By: #### C MP, MG, CBC #### [address] Globulin (S) [Mass/Vol] 2.5 g/dL Normal [facility] Comment on above: Performed By: #### C MP, MG, CBC #### [address] Glucose [Mass/Vol] 92 mg/dL Normal 70-100 [facility] Comment on above: Result Comment: [place] Glucose Reference Range is dependent on time and content of last meal. Glucose of more than 200 mg/dL in a nonstressed, ambulatory subject supports the diagnosis of Diabetes Mellitus. ADA recommended reference range Performed By: #### C MP, MG, CBC #### [address] Potassium [Moles/Vol] 3.9 mmol/L Normal 3.5-5.1 [facility] Comment on above: Performed By: #### C MP, MG, CBC #### [place] [address] [place] Protein [Mass/Vol] 5.9 g/dL Low 6.4-8.9 [facility] Comment on above: Performed By: #### C MP, MG, CBC #### [address] Sodium [Moles/Vol] 132 mmol/L Low 136-145 [facility] Comment on above: Performed By: #### C MP, MG, CBC #### [address] Urea nitrogen [Mass/Vol] 12 mg/dL Normal 7-25 [facility] Comment on above: Performed By: #### C MP, MG, CBC #### [facility] [address] Glucose Poct Glucometerson 0 07-21-2025 Glucose [Mass/Vol] 70 mg/dL Normal [facility] Comment on above: Result Comment: [place] om Glucose Reference Range is dependent on time and content of last meal. Glucose of more than 200 mg/dL in a nonstressed, ambulatory subject supports the diagnosis of Diabetes Mellitus. PERFORMED BY: [place] [address] PATHOLOGIST SECURITY CONTROL ROOM OFFICER MARIAM WANG M.D. Performed By: #### C DT #### [address] Glucose [Mass/Vol] 131 mg/dL Normal [facility] Comment on above: Result Comment: [place] Glucose Reference Range is dependent on time and content of last meal. Glucose of more than 200 mg/dL in a nonstressed, ambulatory subject supports the diagnosis of Diabetes Mellitus. PERFORMED BY: [place] [address] PATHOLOGIST SECURITY CONTROL ROOM OFFICER MARIAM WANG M.D. Performed By: #### V ANCP #### [address] Glucose [Mass/Vol] 152 mg/dL Normal [facility] Comment on above: Result Comment: [place] om Glucose Reference Range is dependent on time and content of last meal. Glucose of more than 200 mg/dL in a nonstressed, ambulatory subject supports the diagnosis of Diabetes Mellitus. PERFORMED BY: [place] [address] PATHOLOGIST SECURITY CONTROL ROOM OFFICER MARIAM WANG M.D. Performed By: #### G LULS #### Point of Care testing , Glucose [Mass/Vol] 89 mg/dL Normal [facility] Comment on above: Result Comment: [facility] Glucose Reference Range is dependent on time and content of last meal. Glucose of more than 200 mg/dL in a nonstressed, ambulatory subject supports the diagnosis of Diabetes Mellitus. PERFORMED BY: [place] [address] PATHOLOGIST SECURITY CONTROL ROOM OFFICER MARIAM WANG M.D. Performed By: #### G LULS #### Point of Care testing , Magnesiumon 07-21-2025 Magnesium [Mass/Vol] 1.9 mg/dL Normal 1.9-2.7 [facility] Comment on above: Result Comment: PERF ORMED BY: [place] [address] PATHOLOGIST SECURITY CONTROL ROOM OFFICER MARIAM WANG M.D. Performed By: #### C MP, MG, CBC #### [address] Vancomycin,Peakon 07-21-2025 Vancomycin,Peak 23.0 Normal 20.0-40.0 [facility] Comment on above: Order Comment: > or = to 3 loose/watery stools in the last 24 HRS? Y Is patient on promotility agents or tube feeding? N Result Comment: Last dose: - PERFORMED BY: [place] [address] PATHOLOGIST SECURITY CONTROL ROOM OFFICER MARIAM WANG M.D. Performed By: #### C DT #### [address] Vancomycin,Peak 18.4 Low 20.0-40.0 [facility] Comment on above: Order Comment: Comme nt ?DRAW 1 HOUR AFTER INFUSION COMPLETES Date of last dose?: [id number] Time of last dose?: 020 Result Comment: Last dose: - PERFORMED BY: [place] [address] PATHOLOGIST SECURITY CONTROL ROOM OFFICER MARIAM WANG M.D. Performed By: #### V ANCP #### [facility] [address] C-Reactive Proteinon 025 C-Reactive Protein 11.5 mg/dL High 0.0-0.5 [facility] Comment on above: Result Comment: PERF ORMED BY: [place] [address] PATHOLOGIST SECURITY CONTROL ROOM OFFICER MARIAM WANG M.D. Performed By: #### V ANCP #### [address] Clostridium Difficileon 09-0 Clostridium Difficile Negative Normal Negative [facility] Comment on above: Order Comment: > or = to 3 loose/watery stools in the last 24 HRS? Y Is patient on promotility agents or tube feeding? N Result Comment: Test ing performed by RT-PCR PERFORMED BY: [place] [address] PATHOLOGIST SECURITY CONTROL ROOM OFFICER MARIAM WANG M.D. Performed By: #### C DT #### [address] Coagulation Profileon 2024 aPTT Coag (Bld) [Time] 34.7 s Normal 25.1-36.5 [facility] Comment on above: Result Comment: A he matocrit value greater than 55% may lead to inaccurate results in coagulation testing. Patients having hematocrit values >55% require a special collection tube for coagulation studies. Please contact the laboratory at [phone] for redraw instructions. PERFORMED BY: [place] [address] PATHOLOGIST SECURITY CONTROL ROOM OFFICER MARIAM WANG M.D. Performed By: #### V ANCP #### [address] INR Coag (PPP) [Relative time] 1.5 {INR} Normal [facility] Comment on above: Result Comment: [...] 4.5 Performed By: #### V ANCP #### [address] PT Coag (PPP) [Time] 16.6 s High 9.0-12.9 [facility] Comment on above: Result Comment: A he matocrit value greater than 55% may lead to inaccurate results in coagulation testing. Patients having hematocrit values >55% require a special collection tube for coagulation studies. Please contact the laboratory at [phone] for redraw instructions. Performed By: #### V ANCP #### [address] Complete Blood Count Auto Di ffon 07-20-2025 Basophils (Bld) [#/Vol] 0.0 10*3/uL Normal 0.0-0.2 [facility] Comment on above: Performed By: #### V ANCP #### [address] Basophils/100 WBC (Bld) 0.3 % Normal . [facility] Comment on above: Performed By: #### V ANCP #### [address] Eosinophils (Bld) [#/Vol] 0.0 10*3/uL Normal 0.0-0.45 [facility] Comment on above: Performed By: #### V ANCP #### [address] Eosinophils/100 WBC (Bld) 0.3 % Normal . [facility] Comment on above: Performed By: #### V ANCP #### [address] Erythrocyte distribution width (RBC) [Ratio] 13.9 % Normal 12.0-14.8 [facility] Comment on above: Performed By: #### V ANCP #### [address] Hematocrit (Bld) [Volume fraction] 36.3 % Low 38.8-50.0 [facility] Comment on above: Performed By: #### V ANCP #### [address] Hemoglobin (Bld) [Mass/Vol] 12.6 g/dL Low 13.0-17.0 [facility] Comment on above: Performed By: #### V ANCP #### [address] Lymphocytes (Bld) [#/Vol] 0.9 10*3/uL Low 1.00-4.8 [facility] Comment on above: Performed By: #### V ANCP #### [address] Lymphocytes/100 WBC (Bld) 9.4 % Normal . [facility] Comment on above: Performed By: #### V ANCP #### [address] MCH (RBC) [Entitic mass] 31.9 pg Normal 27.5-35.2 [facility] Comment on above: Performed By: #### V ANCP #### [address] MCV (RBC) [Entitic vol] 91.8 fL Normal 83.5-101 [facility] Comment on above: Performed By: #### V ANCP #### [address] Mean Corpuscular HGB Conc 34.8 g/dL Normal 32.5-35.6 [facility] Comment on above: Performed By: #### V ANCP #### [address] Monocytes (Bld) [#/Vol] 0.5 10*3/uL Normal 0.0-0.8 [facility] Comment on above: Performed By: #### V ANCP #### [address] Monocytes/100 WBC (Bld) 5.6 % Normal . [facility] Comment on above: Performed By: #### V ANCP #### [facility] [address] [place] [address] [place] Neutrophils (Bld) [#/Vol] 7.9 10*3/uL High 1.8-7.7 [facility] Comment on above: Performed By: #### V ANCP #### [facility] [address] [place] [address] [place] Neutrophils/100 WBC (Bld) 84.4 % Normal . [facility] Comment on above: Performed By: #### V ANCP #### [facility] [address] [place] [address] [place] NRBC% 0.1 /100{WBC} Normal 0-0.5 [facility] Comment on above: Performed By: #### V ANCP #### [facility] [address] [place] [address] [place] Platelet mean volume (Bld) [Entitic vol] 9.3 fL Normal 6.6-10.1 [facility] Comment on above: Performed By: #### V ANCP #### [facility] [address] [place] [address] [place] Platelets (Bld) [#/Vol] 138 10*3/uL Low 150-450 [facility] Comment on above: Performed By: #### V ANCP #### [facility] [address] [place] [id number] [place] RBC (Bld) [#/Vol] 3.96 10*6/uL Normal 3.90-5.60 [facility] Comment on above: Performed By: #### V ANCP #### [facility] [address] [place] [id number] [place] WBC (Bld) [#/Vol] 9.3 10*3/uL Normal 4.1-10.5 [facility] Comment on above: Performed By: #### V ANCP #### [facility] [address] [place] [id number] [place] White Blood Count 9.3 [CFU]/mL Normal 4.1-10.5 [facility] Comment on above: Performed By: #### V ANCP #### [facility] [address] Comprehensive Metabolic Pane patricio 07-20-2025 Albumin [Mass/Vol] 3.6 g/dL Normal 3.5-5.7 [facility] Comment on above: Performed By: #### V ANCP #### [facility] [address] [place] [id number] [facility] Albumin/Globulin [Mass ratio] 1.6 {ratio} Normal [facility] Comment on above: Performed By: #### V ANCP #### [facility] [address] ALP [Catalytic activity/Vol] 69 U/L Normal 34-104 [facility] Comment on above: Performed By: #### V ANCP #### [address] ALT [Catalytic activity/Vol] 12 U/L Normal 7-52 [facility] Comment on above: Performed By: #### V ANCP #### [address] Anion gap [Moles/Vol] 10.3 mmol/L Normal 6.0-15.0 [facility] Comment on above: Performed By: #### V ANCP #### [address] AST [Catalytic activity/Vol] 17 U/L Normal 13-39 [facility] Comment on above: Performed By: #### V ANCP #### [address] Bilirubin [Mass/Vol] 1.5 mg/dL High 0.3-1.0 [facility] Comment on above: Result Comment: Samp les from patients who have taken Naproxen have shown spurious elevation in Total Bilirubin levels. A metabolite of Naproxen, O-desmethylnaproxen, has been shown to interfere with the Jenkaty-Naila method for measuring Total Bilirubin. Performed By: #### V ANCP #### [address] Calcium [Mass/Vol] 8.7 mg/dL Normal 8.6-10.3 [facility] Comment on above: Performed By: #### V ANCP #### [address] Chloride [Moles/Vol] 100 mmol/L Normal 98-107 [facility] Comment on above: Performed By: #### V ANCP #### [address] CO2 [Moles/Vol] 27.2 mmol/L Normal 21.0-31.0 [facility] Comment on above: Performed By: #### V ANCP #### [address] Creatinine [Mass/Vol] 0.88 mg/dL Normal 0.70-1.30 [facility] Comment on above: Performed By: #### V ANCP #### [address] Creatinine Clr Calc Pharmacy 67.65 Normal [facility] Comment on above: Performed By: #### V ANCP #### [address] GFR/1.73 sq M.predicted MDRD (S/P/Bld) [Vol rate/Area] mL/min/{1.73_m2} Normal [facility] Comment on above: Performed By: #### V ANCP #### [address] Globulin (S) [Mass/Vol] 2.3 g/dL Normal [facility] Comment on above: Performed By: #### V ANCP #### [address] Glucose [Mass/Vol] 115 mg/dL High 70-100 [facility] Comment on above: Result Comment: [place] Glucose Reference Range is dependent on time and content of last meal. Glucose of more than 200 mg/dL in a nonstressed, ambulatory subject supports the diagnosis of Diabetes Mellitus. ADA recommended reference range Performed By: #### V ANCP #### [facility] [address] Potassium [Moles/Vol] 4.5 mmol/L Normal 3.5-5.1 [facility] Comment on above: Performed By: #### V ANCP #### [facility] [address] Protein [Mass/Vol] 5.9 g/dL Low 6.4-8.9 [facility] Comment on above: Performed By: #### V ANCP #### [address] Sodium [Moles/Vol] 133 mmol/L Low 136-145 [facility] Comment on above: Performed By: #### V ANCP #### [address] Urea nitrogen [Mass/Vol] 11 mg/dL Normal 7-25 [facility] Comment on above: Performed By: #### V ANCP #### [address] E[facility] echo transthoracicon ECH echo transthoracic [facility] [address] [place] [address] Echocardiogram Signed Patient: Dariel Zabala MR#: [id number] 9 : 1940 Acct:[id number] Age/Sex: 85 / M ADM Date: 07/19/25 Loc: Room: [address] [place] [address] Type: ADM IN Attending Dr: Thalia Cervantes [...] -------+- (more content not included)... Normal [facility] Erythrocyte Sedimentation Ra lisa 07-20-2025 ESR (Bld) [Velocity] 16 mm/h Normal 0-19 [facility] Comment on above: Result Comment: PERF ORMED BY: [facility] [address] [place] [address] PATHOLOGIST SECURITY CONTROL ROOM OFFICER MARIAM WANG M.D. Performed By: #### G LULS #### Point of Care testing , Glucose Poct Glucometerson 0 07-20-2025 Glucose [Mass/Vol] 171 mg/dL Normal [facility] Comment on above: Result Comment: [facility] Glucose Reference Range is dependent on time and content of last meal. Glucose of more than 200 mg/dL in a nonstressed, ambulatory subject supports the diagnosis of Diabetes Mellitus. PERFORMED BY: [place] [address] PATHOLOGIST SECURITY CONTROL ROOM OFFICER MARIAM WANG M.D. Performed By: #### G LULS #### Point of Care testing , Glucose [Mass/Vol] 81 mg/dL Normal [facility] Comment on above: Result Comment: [place] om Glucose Reference Range is dependent on time and content of last meal. Glucose of more than 200 mg/dL in a nonstressed, ambulatory subject supports the diagnosis of Diabetes Mellitus. PERFORMED BY: [place] [address] PATHOLOGIST SECURITY CONTROL ROOM OFFICER MARIAM WANG M.D. Performed By: #### V ANCP #### [address] Glucose [Mass/Vol] 184 mg/dL Normal [facility] Comment on above: Result Comment: Golden om Glucose Reference Range is dependent on time and content of last meal. Glucose of more than 200 mg/dL in a nonstressed, ambulatory subject supports the diagnosis of Diabetes Mellitus. PERFORMED BY: [place] [address] PATHOLOGIST SECURITY CONTROL ROOM OFFICER MARIAM WANG M.D. Performed By: #### V ANCP #### [address] Glucose [Mass/Vol] 115 mg/dL Normal [facility] Comment on above: Result Comment: Golden om Glucose Reference Range is dependent on time and content of last meal. Glucose of more than 200 mg/dL in a nonstressed, ambulatory subject supports the diagnosis of Diabetes Mellitus. PERFORMED BY: [place] [address] PATHOLOGIST SECURITY CONTROL ROOM OFFICER MARIAM WANG M.D. Performed By: #### V ANCP #### [address] Magnesiumon 07-20-2025 Magnesium [Mass/Vol] 1.7 mg/dL Low 1.9-2.7 [facility] Comment on above: Performed By: #### V ANCP #### [address] A1C with Estimated Average G antonn 07-19-2025 Glucose [Mass/Vol] 131 mg/dL Normal [facility] Comment on above: Result Comment: PERF ORMED BY: [place] [address] PATHOLOGIST SECURITY CONTROL ROOM OFFICER MARIAM WANG M.D. Performed By: #### V ANCP #### [address] HbA1c (Bld) [Mass fraction] 6.2 % High 4.3-5.6 [facility] Comment on above: Result Comment: Incr eased risk for diabetes: 5.7 - 6.4 diabetes: >6.4 glycemic control for adults with diabetes: <7.0 Performed By: #### V ANCP #### [address] Glucose Poct Glucometerson 0 07-19-2025 Glucose [Mass/Vol] 112 mg/dL Normal [facility] Comment on above: Result Comment: Golden Glucose Reference Range is dependent on time and content of last meal. Glucose of more than 200 mg/dL in a nonstressed, ambulatory subject supports the diagnosis of Diabetes Mellitus. PERFORMED BY: [place] [address] PATHOLOGIST SECURITY CONTROL ROOM OFFICER MARIAM WANG M.D. Performed By: #### G LULS #### Point of Care testing , [facility] 07-17-[address] [place] [address] Case Information Case Priority: None Programs: -- Referral Source: Make Up Artist Referral Reason: Care coordination Case Type: Transition [...] (min): 7 Outcome: Case discussion Contact Type: loss prevention coordinator Contact Name: Ania Crews Notes: See [...] return call. Created By: Alec Rodrigez Normal [facility] Sodiumon 07-12-2025 Sodium [Moles/Vol] 131 mmol/L Low 135-145 [facility] Comment on above: Performed By: #### 2 [id number] #### [facility] [address] [place] [address] Ambulatory Visit Summaryon 0 07-11-2025 Ambulatory Visit [...] AM EDT With: YANIQUE MCNEILL CNP Where: [place] [id number] 8:00 AM EDT With: Where: [facility] [address] [id number]- Medications What How Much When Why Instructions [...] disease BMI 23.0-23.9, adult Nonsmoker Natural Lemon Kake flavor Contact prescribing physician if questions or [...] for Prop (more content not included)... Normal [facility] Family Medicine Office/Clini c Noteon 07-11-2025 Family Medicine Office/Clinic Note Family Medicine Office/Clinic Note Chief Complaint TCM visit The patient presents for medication management and sodium level evaluation. HPI Staff Pt presents today for TCM visit. Hospital: [facility] Admission date: 06/17/25 Discharge date: 06/23/25 Symptoms the patient presented with: CVA & Low Sodium Current concerns: Concerned with medications. History of Present Illness 85-year-old male presenting with his for a TCM appointment following discharge from the [facility]. He is here for sodium level evaluation [...] qualifying data available Patient Education Stroke Prevention, [id number] Problem List/Past Medical History Ongoing ASCVD (arteriosclerotic [...] mg Cap-DR, (more content not included)... Normal [facility] Comment on above: Result Comment: Elec tronically Signed By: YANIQUE MCNEILL CNP\.br\Date and Time Signed: 07/11/25 15:05 EDT [facility] 07-08-20 [facility] Case Information Case Priority: None Programs: -- Referral Source: Make Up Artist Referral Reason: Care coordination Case Type: Transition Care Management Risk Score: -- Case Status: Enrolled (July 08, 2025) Date Assigned: July 05, 2025 Assigned By: Alec Rodrigez Date Enrolled: July 08, 2025 Assigned Primary Personnel: Alec Rodrigez Assigned Secondary Personnel: -- Case Physician: REYES BUSINESS PROCESS CONSULTANT, YANIQUE A Problems Ongoing ASCVD (arteriosclerotic cardiovascular [...] to bed at 2100, get up around 8105-0246, sleep through the night Are you having [...] TCM follow up. Patient was admitted to [facility] for CVA and low sodium [...] is good.' (more content not included)... Normal [facility] Family Medicine Office/Clini c Noteon 07-04-2025 Family [...] and is currently under transitional care. A rn coronary care unit is expected to contact the patient to [...] No qualifying data available Patient Education Hyponatremia, [id number] Problem List/Past Medical History Ongoing ASCVD (arteriosclerotic [...] [Moles/Vol] 7 mmol/L 5 - 15 mmol/L [facility] Calcium [Mass/Vol] 9.9 mg/dL 8.5 - 10. 5 mg/dL [facility] Chloride [Moles/Vol] 95 mmol/L Low 98 - 10 9 mmol/L [facility] CO2 [Moles/Vol] 31 mmol/L 22 - 32 mmol/L [facility] Creatinine [Mass/Vol] 0.8 mg/dL 0.60 - 1.30 mg/dL [facility] Comment on above: METHOD TRACEABLE TO IDMS STANDARD EGFR Non-Race Dependent 88 - PINF [facility] Comment on above: Reported eGFR is bas ed on the CKD-EPI 2020 equation that does not use a race coefficient. Glucose [Mass/Vol] 101 mg/dL High 65 - 99 mg/dL [facility] Potassium [Moles/Vol] 4.5 mmol/L 3.5 - 5.0 mmol/L [facility] Sodium [Moles/Vol] 133 mmol/L Low 134 - 146 mmol/L [facility] Urea nitrogen [Mass/Vol] 29 mg/dL High 5 - 27 mg/dL [facility] CBC auto differentialon 06-14 Basophils (Bld) [#/Vol] 0.1 10*3/uL 0.0 - 0.2 10*3/uL [facility] Basophils/100 WBC (Bld) 1.5 % [facility] Differential cell count method Nom (Bld) AUTOMATED DIFFERENTIAL [facility] Eosinophils (Bld) [#/Vol] 0.1 10*3/uL 0.0 - 0.4 10*3/uL [facility] Eosinophils/100 WBC (Bld) 3 % [facility] Erythrocyte distribution width (RBC) [Ratio] 13.8 % 11.5 - 15 % [facility] Hematocrit (Bld) [Volume fraction] 40 % 39 - 50 % [facility] Hemoglobin (Bld) [Mass/Vol] 13.8 g/dL 13 - 17 g/dL [facility] Lymphocytes (Bld) [#/Vol] 1.5 10*3/uL 1.0 - 3.5 10*3/uL [facility] Lymphocytes/100 WBC (Bld) 34.7 % [facility] MCH (RBC) [Entitic mass] 31.3 pg 27 - 34 pg [facility] MCHC (RBC) [Mass/Vol] 34.5 g/dL 32 - 3 6 g/dL [facility] MCV (RBC) [Entitic vol] 91 fL 80 - 100 fL [facility] Monocytes (Bld) [#/Vol] 0.4 10*3/uL 0.0 - 0.9 10*3/uL [facility] Monocytes/100 WBC (Bld) 10.2 % [facility] Neutrophils (Bld) [#/Vol] 2.1 10*3/uL 1.5 - 6.6 10*3/uL [facility] Neutrophils/100 WBC (Bld) 50.6 % [facility] Platelet mean volume (Bld) [Entitic vol] 9.5 fL 7 - 12 fL [facility] Platelets (Bld) [#/Vol] 234 10*3/uL [facility] RBC (Bld) [#/Vol] 4.4 10*6/uL [facility] WBC LM Ql (Sput) 4.2 [facility] ECG 12 Leadon 06-23-2025 TRACEMASTERVUE [facility] Electrolyte panelon 06-23-20 25 Anion gap [Moles/Vol] 10 mmol/L 5 - 15 mmol/L [facility] Chloride [Moles/Vol] 96 mmol/L Low 98 - 10 9 mmol/L [facility] CO2 [Moles/Vol] 27 mmol/L 22 - 32 mmol/L [facility] Interpretation and review of laboratory results Abnormal [facility] Potassium [Moles/Vol] 4.2 mmol/L 3.5 - 5.0 mmol/L [facility] Sodium [Moles/Vol] 133 mmol/L Low 134 - 146 mmol/L [facility] Ionized calciumon 06-23-2025 Calcium.ionized ISE [Moles/Vol] 5.1 mg/dL 4.5 - 5.3 mg/dL [facility] Interpretation and review of laboratory results Normal [facility] Magnesiumon 06-23-2025 Magnesium [Mass/Vol] 1.6 mg/dL Low 1.8 - 2 .6 mg/dL [facility] No Panel Informationon 06-23 Interpretation and review of laboratory results Abnormal [facility] Phosphoruson 06-23-2025 Interpretation and review of laboratory results Normal [facility] Phosphate [Mass/Vol] 3.5 mg/dL 2.4 - 4 .9 mg/dL [facility] Protime & INROrdered By: Lucy Branham on 06-23-2025 INR Coag (Platelet poor plasma or blood) [Relative time] 2.8 High 0.9 - 1.2 [facility] Interpretation and review of laboratory results Abnormal [facility] PT Coag (PPP) [Time] 32.1 s High [facility] Anti XA unfractionated hepar inOrdered By: Mindy Conklin on 06-22-2025 Heparin unfractionated Chromogenic method Qn (PPP) 0.56 [facility] Comment on above: Optimal time for raimundo ting is 6 hrs post dosage This test is specific for monitoring patients on UFH, and is not recommended for use with other Anti-Xa medications. Interpretation and review of laboratory results Normal [facility] Basic Metabolic Panelon Anion gap [Moles/Vol] 8 mmol/L 5 - 15 mmol/L [facility] Calcium [Mass/Vol] 9.1 mg/dL 8.5 - 10. 5 mg/dL [facility] Chloride [Moles/Vol] 93 mmol/L Low 98 - 10 9 mmol/L [facility] CO2 [Moles/Vol] 26 mmol/L 22 - 32 mmol/L [facility] Creatinine [Mass/Vol] 0.76 mg/dL 0.60 - 1.30 mg/dL [facility] Comment on above: METHOD TRACEABLE TO IDMS STANDARD EGFR Non-Race Dependent 89 - PINF [facility] Comment on above: Reported eGFR is bas ed on the CKD-EPI 2020 equation that does not use a race coefficient. Glucose [Mass/Vol] 135 mg/dL High 65 - 99 mg/dL [facility] Interpretation and review of laboratory results Abnormal [facility] Potassium [Moles/Vol] 4.3 mmol/L 3.5 - 5.0 mmol/L [facility] Sodium [Moles/Vol] 127 mmol/L Low 134 - 146 mmol/L [facility] Urea nitrogen [Mass/Vol] 35 mg/dL High 5 - 27 mg/dL [facility] CBC auto differentialon Basophils (Bld) [#/Vol] 0.1 10*3/uL 0.0 - 0.2 10*3/uL [facility] Basophils/100 WBC (Bld) 1.3 % [facility] Differential cell count method Nom (Bld) AUTOMATED DIFFERENTIAL [facility] Eosinophils (Bld) [#/Vol] 0.1 10*3/uL 0.0 - 0.4 10*3/uL [facility] Eosinophils/100 WBC (Bld) 2 % [facility] Erythrocyte distribution width (RBC) [Ratio] 13.5 % 11.5 - 15 % [facility] Hematocrit (Bld) [Volume fraction] 36.3 % Low 39 - 50 % [facility] Hemoglobin (Bld) [Mass/Vol] 12.5 g/dL Low 13 - 17 g/dL [facility] Interpretation and review of laboratory results Abnormal [facility] Lymphocytes (Bld) [#/Vol] 1.5 10*3/uL 1.0 - 3.5 10*3/uL [facility] Lymphocytes/100 WBC (Bld) 26.9 % [facility] MCH (RBC) [Entitic mass] 31.2 pg 27 - 34 pg [facility] MCHC (RBC) [Mass/Vol] 34.4 g/dL 32 - 3 6 g/dL [facility] MCV (RBC) [Entitic vol] 91 fL 80 - 100 fL [facility] Monocytes (Bld) [#/Vol] 0.7 10*3/uL 0.0 - 0.9 10*3/uL [facility] Monocytes/100 WBC (Bld) 12.2 % [facility] Neutrophils (Bld) [#/Vol] 3.3 10*3/uL 1.5 - 6.6 10*3/uL [facility] Neutrophils/100 WBC (Bld) 57.6 % [facility] Platelet mean volume (Bld) [Entitic vol] 9.8 fL 7 - 12 fL [facility] Platelets (Bld) [#/Vol] 212 10*3/uL [facility] RBC (Bld) [#/Vol] 4 10*6/uL Low [facility] WBC LM Ql (Sput) 5.6 [facility] Electrolyte panelon 06-22-20 25 Anion gap [Moles/Vol] 8 mmol/L 5 - 15 mmol/L [facility] Chloride [Moles/Vol] 93 mmol/L Low 98 - 10 9 mmol/L [facility] CO2 [Moles/Vol] 28 mmol/L 22 - 32 mmol/L [facility] Interpretation and review of laboratory results Abnormal [facility] Potassium [Moles/Vol] 4.4 mmol/L 3.5 - 5.0 mmol/L [facility] Sodium [Moles/Vol] 129 mmol/L Low 134 - 146 mmol/L [facility] Anion gap [Moles/Vol] 7 mmol/L 5 - 15 mmol/L [facility] Chloride [Moles/Vol] 94 mmol/L Low 98 - 10 9 mmol/L [facility] CO2 [Moles/Vol] 28 mmol/L 22 - 32 mmol/L [facility] Interpretation and review of laboratory results Abnormal [facility] Potassium [Moles/Vol] 4.4 mmol/L 3.5 - 5.0 mmol/L [facility] Sodium [Moles/Vol] 129 mmol/L Low 134 - 146 mmol/L [facility] Lavender Topon 06-22-2025 Extra Tube Auto Resulted [facility] No Panel Informationon 06-22 [facility] Protime & INRon 06-22-2025 INR Coag (Platelet poor plasma or blood) [Relative time] 1.8 High 0.9 - 1.2 [facility] Interpretation and review of laboratory results Abnormal [facility] PT Coag (PPP) [Time] 19.9 s High [facility] Anti XA unfractionated hepar inon 06-21-2025 Heparin unfractionated Chromogenic method Qn (PPP) 0.37 [facility] Comment on above: Optimal time for raimundo ting is 6 hrs post dosage This test is specific for monitoring patients on UFH, and is not recommended for use with other Anti-Xa medications. Interpretation and review of laboratory results Normal [facility] Heparin unfractionated Chromogenic method Qn (PPP) 0.65 [facility] Comment on above: Optimal time for raimundo ting is 6 hrs post dosage This test is specific for monitoring patients on UFH, and is not recommended for use with other Anti-Xa medications. Interpretation and review of laboratory results Normal [facility] Basic Metabolic Panelon Anion gap [Moles/Vol] 9 mmol/L 5 - 15 mmol/L [facility] Calcium [Mass/Vol] 9 mg/dL 8.5 - 10. 5 mg/dL [facility] Chloride [Moles/Vol] 93 mmol/L Low 98 - 10 9 mmol/L [facility] CO2 [Moles/Vol] 25 mmol/L 22 - 32 mmol/L [facility] Creatinine [Mass/Vol] 0.72 mg/dL 0.60 - 1.30 mg/dL [facility] Comment on above: METHOD TRACEABLE TO IDNJ STANDARD EGFR Non-Race Dependent - PINF [facility] Comment on above: Reported eGFR is bas ed on the CKD-EPI 2020 equation that does not use a race coefficient. Glucose [Mass/Vol] 121 mg/dL High 65 - 99 mg/dL [facility] Interpretation and review of laboratory results Abnormal [facility] Potassium [Moles/Vol] 4.5 mmol/L 3.5 - 5.0 mmol/L [facility] Sodium [Moles/Vol] 127 mmol/L Low 134 - 146 mmol/L [facility] Urea nitrogen [Mass/Vol] 25 mg/dL 5 - 27 mg/dL [facility] C-reactive proteinon 025 CRP [Mass/Vol] 8.9 mg/dL High NINF - 0.7 mg/dL [facility] Interpretation and review of laboratory results Abnormal [facility] CBC auto differentialon Basophils (Bld) [#/Vol] 0.1 10*3/uL 0.0 - 0.2 10*3/uL [facility] Basophils/100 WBC (Bld) 1.1 % [facility] Differential cell count method Nom (Bld) AUTOMATED DIFFERENTIAL [facility] Eosinophils (Bld) [#/Vol] 0 10*3/uL 0.0 - 0.4 10*3/uL [facility] Eosinophils/100 WBC (Bld) 0.9 % [facility] Erythrocyte distribution width (RBC) [Ratio] 13.8 % 11.5 - 15 % [facility] Hematocrit (Bld) [Volume fraction] 40.7 % 39 - 50 % [facility] Hemoglobin (Bld) [Mass/Vol] 14.1 g/dL 13 - 17 g/dL [facility] Lymphocytes (Bld) [#/Vol] 1.5 10*3/uL 1.0 - 3.5 10*3/uL [facility] Lymphocytes/100 WBC (Bld) 28.5 % [facility] MCH (RBC) [Entitic mass] 30.9 pg 27 - 34 pg [facility] MCHC (RBC) [Mass/Vol] 34.7 g/dL 32 - 3 6 g/dL [facility] MCV (RBC) [Entitic vol] 89 fL 80 - 100 fL [facility] Monocytes (Bld) [#/Vol] 0.6 10*3/uL 0.0 - 0.9 10*3/uL [facility] Monocytes/100 WBC (Bld) 12 % [facility] Neutrophils (Bld) [#/Vol] 3 10*3/uL 1.5 - 6.6 10*3/uL [facility] Neutrophils/100 WBC (Bld) 57.5 % [facility] Platelet mean volume (Bld) [Entitic vol] 9.7 fL 7 - 12 fL [facility] Platelets (Bld) [#/Vol] 189 10*3/uL [facility] RBC (Bld) [#/Vol] 4.56 10*6/uL [facility] WBC LM Ql (Sput) 5.3 [facility] CK Totalon 06-21-2025 CK [Catalytic activity/Vol] 26 U/L 24 - 195 U/L [facility] Interpretation and review of laboratory results Normal [facility] CT Head WO contraston 2024 Examination: [...] Esau Restrepo MD on 06/21/2025 10:56 AM [facility] Radiology Study observation (narrative) [facility] CT Head WO contrastOrdered B y: Esau Restrepo on 06-21-2025 [facility] Work Phone: Electrolyte panelon 06-21-20 25 Anion gap [Moles/Vol] 8 mmol/L 5 - 15 mmol/L [facility] Chloride [Moles/Vol] 92 mmol/L Low 98 - 10 9 mmol/L [facility] CO2 [Moles/Vol] 26 mmol/L 22 - 32 mmol/L [facility] Interpretation and review of laboratory results Abnormal [facility] Potassium [Moles/Vol] 4.8 mmol/L 3.5 - 5.0 mmol/L [facility] Sodium [Moles/Vol] 126 mmol/L Low 134 - 146 mmol/L [facility] Anion gap [Moles/Vol] 9 mmol/L 5 - 15 mmol/L [facility] Chloride [Moles/Vol] 93 mmol/L Low 98 - 10 9 mmol/L [facility] CO2 [Moles/Vol] 25 mmol/L 22 - 32 mmol/L [facility] Interpretation and review of laboratory results Abnormal [facility] Potassium [Moles/Vol] 4.4 mmol/L 3.5 - 5.0 mmol/L [facility] Sodium [Moles/Vol] 127 mmol/L Low 134 - 146 mmol/L [facility] Anion gap [Moles/Vol] 9 mmol/L 5 - 15 mmol/L [facility] Chloride [Moles/Vol] 90 mmol/L Low 98 - 10 9 mmol/L [facility] CO2 [Moles/Vol] 25 mmol/L 22 - 32 mmol/L [facility] Interpretation and review of laboratory results Abnormal [facility] Potassium [Moles/Vol] 4.6 mmol/L 3.5 - 5.0 mmol/L [facility] Sodium [Moles/Vol] 124 mmol/L Low 134 - 146 mmol/L [facility] Erythrocyte Sedimentation Ra te (ESR)on 06-21-2025 ESR (Bld) [Velocity] 46 mm/h High 0 - 20 mm/h [facility] Interpretation and review of laboratory results Abnormal [facility] Gas panel (BldV)on Arterial patency Wrist artery --pre arterial puncture N/A [facility] Base excess Calc (Bld) [Moles/Vol] 2 mmol/L 0.0 - 2.0 mmol/L [facility] CO2 (BldV) [Partial pressure] 51.8 mm[Hg] High [facility] HCO3 (Bld) [Moles/Vol] 28.7 mmol/L High 20.0 - 24.0 mmol/L [facility] Interpretation and review of laboratory results Abnormal [facility] Oxygen (BldV) [Partial pressure] 29 mm[Hg] Low [facility] Oxygen therapy source and amount [CARE] Room Air [facility] Oxygen/Inspired gas setting [Volume Fraction] Ventilator 21 % [facility] pH (BldV) 7.351 [pH] 7.320 - 7.420 [facility] SaO2% Calculated from oxygen partial pressure (BldV) [Mass fraction] 50 % [facility] Specimen site Narrative N/A [facility] Specimen type Nom (Spec) VENOUS [facility] No Panel Informationon 06-21 [facility] Protime & INRon 06-21-2025 INR Coag (Platelet poor plasma or blood) [Relative time] 1.6 High 0.9 - 1.2 [facility] Interpretation and review of laboratory results Abnormal [facility] PT Coag (PPP) [Time] 17.7 s High [facility] Anti XA unfractionated hepar inon 06-20-2025 Heparin unfractionated Chromogenic method Qn (PPP) 0.62 [facility] Comment on above: Optimal time for raimundo ting is 6 hrs post dosage This test is specific for monitoring patients on UFH, and is not recommended for use with other Anti-Xa medications. Interpretation and review of laboratory results Normal [facility] Basic Metabolic Panelon Anion gap [Moles/Vol] 8 mmol/L 5 - 15 mmol/L [facility] Calcium [Mass/Vol] 9 mg/dL 8.5 - 10. 5 mg/dL [facility] Chloride [Moles/Vol] 89 mmol/L Low 98 - 10 9 mmol/L [facility] CO2 [Moles/Vol] 27 mmol/L 22 - 32 mmol/L [facility] Creatinine [Mass/Vol] 0.73 mg/dL 0.60 - 1.30 mg/dL [facility] Comment on above: METHOD TRACEABLE TO IDMS STANDARD EGFR Non-Race Dependent 90 - PINF [facility] Comment on above: Reported eGFR is bas ed on the CKD-EPI 2020 equation that does not use a race coefficient. Glucose [Mass/Vol] 98 mg/dL 65 - 99 mg/dL [facility] Potassium [Moles/Vol] 4.3 mmol/L 3.5 - 5.0 mmol/L [facility] Sodium [Moles/Vol] 124 mmol/L Low 134 - 146 mmol/L [facility] Urea nitrogen [Mass/Vol] 12 mg/dL 5 - 27 mg/dL [facility] CBC auto differentialon 08-0 Basophils (Bld) [#/Vol] 0.1 10*3/uL 0.0 - 0.2 10*3/uL [facility] Basophils/100 WBC (Bld) 1 % [facility] Differential cell count method Nom (Bld) AUTOMATED DIFFERENTIAL [facility] Eosinophils (Bld) [#/Vol] 0.1 10*3/uL 0.0 - 0.4 10*3/uL [facility] Eosinophils/100 WBC (Bld) 1.2 % [facility] Erythrocyte distribution width (RBC) [Ratio] 13.8 % 11.5 - 15 % [facility] Hematocrit (Bld) [Volume fraction] 38.1 % Low 39 - 50 % [facility] Hemoglobin (Bld) [Mass/Vol] 13.3 g/dL 13 - 17 g/dL [facility] Interpretation and review of laboratory results Abnormal [facility] Lymphocytes (Bld) [#/Vol] 1.5 10*3/uL 1.0 - 3.5 10*3/uL [facility] Lymphocytes/100 WBC (Bld) 22.4 % [facility] MCH (RBC) [Entitic mass] 31.3 pg 27 - 34 pg [facility] MCHC (RBC) [Mass/Vol] 34.9 g/dL 32 - 3 6 g/dL [facility] MCV (RBC) [Entitic vol] 90 fL 80 - 100 fL [facility] Monocytes (Bld) [#/Vol] 0.7 10*3/uL 0.0 - 0.9 10*3/uL [facility] Monocytes/100 WBC (Bld) 10.7 % [facility] Neutrophils (Bld) [#/Vol] 4.2 10*3/uL 1.5 - 6.6 10*3/uL [facility] Neutrophils/100 WBC (Bld) 64.7 % [facility] Platelet mean volume (Bld) [Entitic vol] 9.5 fL 7 - 12 fL [facility] Platelets (Bld) [#/Vol] 204 10*3/uL [facility] RBC (Bld) [#/Vol] 4.25 10*6/uL [facility] WBC LM Ql (Sput) 6.5 [facility] DISCONTINUE IN PROCESS EEG T ESTINGOrdered By: Documentation Systemgenerated on 06-20-2025 [facility] Work Phone: Electrolyte panelon 06-20-20 25 Anion gap [Moles/Vol] 8 mmol/L 5 - 15 mmol/L [facility] Chloride [Moles/Vol] 90 mmol/L Low 98 - 10 9 mmol/L [facility] CO2 [Moles/Vol] 24 mmol/L 22 - 32 mmol/L [facility] Interpretation and review of laboratory results Abnormal [facility] Potassium [Moles/Vol] 4.8 mmol/L 3.5 - 5.0 mmol/L [facility] Sodium [Moles/Vol] 122 mmol/L Low 134 - 146 mmol/L [facility] Anion gap [Moles/Vol] 8 mmol/L 5 - 15 mmol/L [facility] Chloride [Moles/Vol] 90 mmol/L Low 98 - 10 9 mmol/L [facility] CO2 [Moles/Vol] 24 mmol/L 22 - 32 mmol/L [facility] Interpretation and review of laboratory results Abnormal [facility] Potassium [Moles/Vol] 4.6 mmol/L 3.5 - 5.0 mmol/L [facility] Sodium [Moles/Vol] 122 mmol/L Low 134 - 146 mmol/L [facility] Anion gap [Moles/Vol] 8 mmol/L 5 - 15 mmol/L [facility] Chloride [Moles/Vol] 90 mmol/L Low 98 - 10 9 mmol/L [facility] CO2 [Moles/Vol] 24 mmol/L 22 - 32 mmol/L [facility] Interpretation and review of laboratory results Abnormal [facility] Potassium [Moles/Vol] 4.3 mmol/L 3.5 - 5.0 mmol/L [facility] Sodium [Moles/Vol] 122 mmol/L Low 134 - 146 mmol/L [facility] Holter monitor studyon 06-20 Images from the original result were not included. Continuous video EEG monitoring study Date of Report: 06/20/2025 History: This is a n 85 yo man with altered mental status, concern for seizures. Procedure: Start: 20:37 06/19/2025 End: 06:30 06/20/2025 This is a standard [facility] EEG monitoring report using scalp [...] or primary neurological disorders. Yaquelin Esparza MD [employer] Neurology/Neurophysi ology [employer] MANUALLY TRANSCRIBED RESULTS [facility] Lavender Topon 06-20-2025 Extra Tube Auto [facility]ed [facility] No Panel Informationon 06-20 [facility] Interpretation and review of laboratory results Abnormal [facility] Osmolality, urineOrdered By: Dixon Rodriguez on 06-20-2025 Interpretation and review of laboratory results Normal [facility] Osmolality (U) [Osmolality] 565 mosm/kg [facility] Protime & INRon 06-20-2025 INR Coag (Platelet poor plasma or blood) [Relative time] 1.3 High 0.9 - 1.2 [facility] PT Coag (PPP) [Time] 15 s High [facility] Sodium, urine, randomon Sodium (U) [Moles/Vol] 64 mmol/L [facility] Thyroid profile includes TSH FT4on 06-20-2025 Free T4 [Mass/Vol] 1.13 ng/dL 0.61 - 1. 60 ng/dL [facility] Interpretation and review of laboratory results Abnormal [facility] TSH Qn 4.83 m[IU]/L High [facility] Uric acidon 06-20-2025 Interpretation and review of laboratory results Normal [facility] Urate [Mass/Vol] 4.4 mg/dL 2.6 - 7.2 mg/dL [facility] Urine Creatinine,randomon Creatinine (U) [Mass/Vol] 150.26 mg/dL [facility] Anti XA unfractionated hepar inon 06-19-2025 Heparin unfractionated Chromogenic method Qn (PPP) 0.64 [facility] Comment on above: Optimal time for raimundo ting is 6 hrs post dosage This test is specific for monitoring patients on UFH, and is not recommended for use with other Anti-Xa medications. Interpretation and review of laboratory results Normal [facility] Anti XA unfractionated hepar inOrdered By: Barbra Howell on 06-19-2025 Heparin unfractionated Chromogenic method Qn (PPP) 0.6 [facility] Comment on above: Optimal time for raimundo ting is 6 hrs post dosage This test is specific for monitoring patients on UFH, and is not recommended for use with other Anti-Xa medications. Interpretation and review of laboratory results Normal [facility] Basic Metabolic Panelon Anion gap [Moles/Vol] 9 mmol/L 5 - 15 mmol/L [facility] Calcium [Mass/Vol] 8.8 mg/dL 8.5 - 10. 5 mg/dL [facility] Chloride [Moles/Vol] 88 mmol/L Low 98 - 10 9 mmol/L [facility] CO2 [Moles/Vol] 26 mmol/L 22 - 32 mmol/L [facility] Creatinine [Mass/Vol] 0.73 mg/dL 0.60 - 1.30 mg/dL [facility] Comment on above: METHOD TRACEABLE TO IDMS STANDARD EGFR Non-Race Dependent 90 - PINF [facility] Comment on above: Reported eGFR is bas ed on the CKD-EPI 2020 equation that does not use a race coefficient. Glucose [Mass/Vol] 104 mg/dL High 65 - 99 mg/dL [facility] Interpretation and review of laboratory results Abnormal [facility] Potassium [Moles/Vol] 4.3 mmol/L 3.5 - 5.0 mmol/L [facility] Sodium [Moles/Vol] 123 mmol/L Low 134 - 146 mmol/L [facility] Urea nitrogen [Mass/Vol] 10 mg/dL 5 - 27 mg/dL [facility] CBC auto differentialon Basophils (Bld) [#/Vol] 0.1 10*3/uL 0.0 - 0.2 10*3/uL [facility] Basophils/100 WBC (Bld) 0.7 % [facility] Differential cell count method Nom (Bld) AUTOMATED DIFFERENTIAL [facility] Eosinophils (Bld) [#/Vol] 0.1 10*3/uL 0.0 - 0.4 10*3/uL [facility] Eosinophils/100 WBC (Bld) 1.1 % [facility] Erythrocyte distribution width (RBC) [Ratio] 13.5 % 11.5 - 15 % [facility] Hematocrit (Bld) [Volume fraction] 38.7 % Low 39 - 50 % [facility] Hemoglobin (Bld) [Mass/Vol] 13.4 g/dL 13 - 17 g/dL [facility] Interpretation and review of laboratory results Abnormal [facility] Lymphocytes (Bld) [#/Vol] 1.3 10*3/uL 1.0 - 3.5 10*3/uL [facility] Lymphocytes/100 WBC (Bld) 16 % [facility] MCH (RBC) [Entitic mass] 31.1 pg 27 - 34 pg [facility] MCHC (RBC) [Mass/Vol] 34.6 g/dL 32 - 3 6 g/dL [facility] MCV (RBC) [Entitic vol] 90 fL 80 - 100 fL [facility] Monocytes (Bld) [#/Vol] 1 10*3/uL High 0.0 - 0.9 10*3/uL [facility] Monocytes/100 WBC (Bld) 12.6 % [facility] Neutrophils (Bld) [#/Vol] 5.5 10*3/uL 1.5 - 6.6 10*3/uL [facility] Neutrophils/100 WBC (Bld) 69.6 % [facility] Platelet mean volume (Bld) [Entitic vol] 8.8 fL 7 - 12 fL [facility] Platelets (Bld) [#/Vol] 200 10*3/uL [facility] RBC (Bld) [#/Vol] 4.31 10*6/uL [facility] WBC LM Ql (Sput) 7.9 [facility] [employer] [facility] Cardiac echo study Procedure Ordered By: Abel Gross on 06-19-2025 Est. RA pressure 15 mmHg [facility] Work Phone: [facility] Work Phone: Cardiac echo study Procedure [...] globally hypokinetic. [facility] Radiology Study observation (narrative) [facility] Electrolyte panelon 06-19-20 25 Anion gap [Moles/Vol] 7 mmol/L 5 - 15 mmol/L [facility] Chloride [Moles/Vol] 89 mmol/L Low 98 - 10 9 mmol/L [facility] CO2 [Moles/Vol] 24 mmol/L 22 - 32 mmol/L [facility] Interpretation and review of laboratory results Abnormal [facility] Potassium [Moles/Vol] 4.7 mmol/L 3.5 - 5.0 mmol/L [facility] Sodium [Moles/Vol] 120 mmol/L Low 134 - 146 mmol/L [facility] Magnesiumon 06-19-2025 Interpretation and review of laboratory results Normal [facility] Magnesium [Mass/Vol] 2.3 mg/dL 1.8 - 2 .6 mg/dL [facility] No Panel Informationon 06-19 [facility] US Carotid arteries - bilate ralon [...] at the phone number beside their name. [facility] Radiology Study observation (narrative) [facility] [place] Carotid arteries - bilate ralOrdered By: Abel Ballesteros on 06-19-2025 [facility] [employer] Work Phone: APTTon 06-18-2025 aPTT Coag (PPP) [Time] 29 s [email or web address] Interpretation and review of laboratory results Normal [facility] Anti XA unfractionated hepar inon 06-18-2025 Heparin unfractionated Chromogenic method Qn (PPP) 0.26 Low [facility] Comment on above: Optimal time for raimundo ting is 6 hrs post dosage This test is specific for monitoring patients on UFH, and is not recommended for use with other Anti-Xa medications. Interpretation and review of laboratory results Abnormal [facility] Basic Metabolic Panelon 08-0 Anion gap [Moles/Vol] 10 mmol/L 5 - 15 mmol/L [facility] Calcium [Mass/Vol] 9.1 mg/dL 8.5 - 10. 5 mg/dL [facility] Chloride [Moles/Vol] 93 mmol/L Low 98 - 10 9 mmol/L [facility] CO2 [Moles/Vol] 24 mmol/L 22 - 32 mmol/L [facility] Creatinine [Mass/Vol] 0.71 mg/dL 0.60 - 1.30 mg/dL [facility] Comment on above: METHOD TRACEABLE TO IDMS STANDARD EGFR Non-Race Dependent - PINF [facility] Comment on above: Reported eGFR is bas ed on the CKD-EPI 2020 equation that does not use a race coefficient. Glucose [Mass/Vol] 81 mg/dL 65 - 99 mg/dL [facility] Interpretation and review of laboratory results Abnormal [facility] Potassium [Moles/Vol] 4.3 mmol/L 3.5 - 5.0 mmol/L [facility] Sodium [Moles/Vol] 127 mmol/L Low 134 - 146 mmol/L [facility] Urea nitrogen [Mass/Vol] 10 mg/dL 5 - 27 mg/dL [facility] Bedside Glucose *Place/Obtai n serum glucose if >500 per glucometer.on 06-18-2025 Glucose [Mass/Vol] 154 mg/dL High 65 - 99 mg/dL [facility] Interpretation and review of laboratory results Abnormal [facility] CBC auto differentialon Basophils (Bld) [#/Vol] 0.1 10*3/uL 0.0 - 0.2 10*3/uL [facility] Basophils/100 WBC (Bld) 1.5 % [facility] Differential cell count method Nom (Bld) AUTOMATED DIFFERENTIAL [facility] Eosinophils (Bld) [#/Vol] 0.2 10*3/uL 0.0 - 0.4 10*3/uL [facility] Eosinophils/100 WBC (Bld) 3.7 % [facility] Erythrocyte distribution width (RBC) [Ratio] 13.3 % 11.5 - 15 % [facility] Hematocrit (Bld) [Volume fraction] 36 % Low 39 - 50 % [facility] Hemoglobin (Bld) [Mass/Vol] 12.7 g/dL Low 13 - 17 g/dL [facility] Interpretation and review of laboratory results Abnormal [facility] Lymphocytes (Bld) [#/Vol] 1.2 10*3/uL 1.0 - 3.5 10*3/uL [facility] Lymphocytes/100 WBC (Bld) 22.7 % [facility] MCH (RBC) [Entitic mass] 31.5 pg 27 - 34 pg [facility] MCHC (RBC) [Mass/Vol] 35.4 g/dL 32 - 3 6 g/dL [facility] MCV (RBC) [Entitic vol] 89 fL 80 - 100 fL [facility] Monocytes (Bld) [#/Vol] 0.6 10*3/uL 0.0 - 0.9 10*3/uL [facility] Monocytes/100 WBC (Bld) 11.6 % [facility] Neutrophils (Bld) [#/Vol] 3.3 10*3/uL 1.5 - 6.6 10*3/uL [facility] Neutrophils/100 WBC (Bld) 60.5 % [facility] Platelet mean volume (Bld) [Entitic vol] 9.5 fL 7 - 12 fL [facility] Platelets (Bld) [#/Vol] 251 10*3/uL [facility] RBC (Bld) [#/Vol] 4.05 10*6/uL Low [facility] WBC LM Ql (Sput) 5.4 [facility] EEGon 06-18-2025 Images from the [...] or primary neurological disorders. Yaquelin Esparza MD [employer] Neurology/Neurophysi ology [employer] MANUALLY TRANSCRIBED RESULTS EEGOrdered By: Yaquelin Esparza on 06-18-2025 [facility] [employer] [facility] Work Phone: Hemoglobinon 06-18-2025 Hemoglobin (Bld) [Mass/Vol] 13.9 g/dL 13 - 17 g/dL [facility] Hemoglobin A1con 06-18-2025 Average glucose Estimated from glycated hemoglobin (Bld) [Mass/Vol] 117 mg/dL [facility] HbA1c (Bld) [Mass fraction] 5.7 % High 4.4 - 5.6 % [facility] Comment on above: ADA Guidelines Result HgbA1c Normal : less than 5.7 % Prediabetes : 5.7 % to 6.4 % Diabetes : > 6.4 % Use with caution in patients with abnormal hemoglobin variants as the half-life of red blood cells and in vivo glycation rates are affected. Interpretation and review of laboratory results Abnormal [facility] Lipid profileon 06-18-2025 Cholesterol [Mass/Vol] 150 mg/dL 150 - 200 mg/dL [facility] Cholesterol in HDL [Mass/Vol] 41 mg/dL 39 - PINF mg/dL [facility] Comment on above: HDL <40 mg/dL - High Risk HDL > or = 40mg/dL- Desirable HDL >60 mg/dL - Negative Risk Cholesterol in HDL [Mass/Vol] 3.7 mg/dL 1.0 - 5.0 [facility] Cholesterol in LDL [Mass/Vol] 95 mg/dL NINF - 130 mg/dL [facility] Comment on above: LDL <100 mg/dL - Carlos A irable LDL >160 mg/dL - High Risk Cholesterol in VLDL [Mass/Vol] 14 mg/dL 0 - 30 mg/dL [facility] Interpretation and review of laboratory results Normal [facility] Triglyceride [Mass/Vol] 70 mg/dL 27 - 150 mg/dL [facility] MR Brain WO contraston 06-18 HISTORY: [...] Ray Vaughn MD on 06/18/2025 9:50 AM [facility] Ray Vaughn MD - 06/18/2025 HISTORY: An [...] Ray Vaughn MD on 06/18/2025 9:50 AM [facility] Radiology Study observation (narrative) [facility] MR Brain WO contrastOrdered By: Ray Vaughn on 06-18-2025 [facility] Work Phone: Magnesiumon 06-18-2025 Interpretation and review of laboratory results Abnormal [facility] Magnesium [Mass/Vol] 1.6 mg/dL Low 1.8 - 2 .6 mg/dL [facility] No Panel Informationon 06-18 Interpretation and review of laboratory results Normal [facility] OsmolalityOrdered By: Elisa erickson on 06-18-2025 Interpretation and review of laboratory results Abnormal [facility] Osmolality [Osmolality] 261 mosm/kg Low [facility] PST TOPon 06-18-2025 Extra Tube Auto Resulted [facility] Platelet counton 06-18-2025 Platelet mean volume (Bld) [Entitic vol] 8.7 fL 7 - 12 fL [facility] Platelets (Bld) [#/Vol] 214 10*3/uL [facility] Protime & INRon 06-18-2025 INR Coag (Platelet poor plasma or blood) [Relative time] 1.1 0.9 - 1.2 [facility] Interpretation and review of laboratory results Normal [facility] PT Coag (PPP) [Time] 13 s [facility] INR Coag (Platelet poor plasma or blood) [Relative time] 1.1 0.9 - 1.2 [facility] Interpretation and review of laboratory results Normal [facility] PT Coag (PPP) [Time] 13 s [facility] Bedside Glucose *Place/Obtai n serum glucose if >500 per glucometer.on 06-17-2025 Glucose [Mass/Vol] 111 mg/dL High 65 - 99 mg/dL [facility] Interpretation and review of laboratory results Abnormal [facility] CBC auto differentialon Basophils (Bld) [#/Vol] 0.1 10*3/uL 0.0 - 0.2 10*3/uL [facility] Basophils/100 WBC (Bld) 1.5 % [facility] Differential cell count method Nom (Bld) AUTOMATED DIFFERENTIAL [facility] Eosinophils (Bld) [#/Vol] 0.1 10*3/uL 0.0 - 0.4 10*3/uL [facility] Eosinophils/100 WBC (Bld) 3 % [facility] Erythrocyte distribution width (RBC) [Ratio] 13.8 % 11.5 - 15 % [facility] Hematocrit (Bld) [Volume fraction] 37.3 % Low 39 - 50 % [facility] Hemoglobin (Bld) [Mass/Vol] 13 g/dL 13 - 17 g/dL [facility] Interpretation and review of laboratory results Abnormal [facility] Lymphocytes (Bld) [#/Vol] 1.3 10*3/uL 1.0 - 3.5 10*3/uL [facility] Lymphocytes/100 WBC (Bld) 27.2 % [facility] MCH (RBC) [Entitic mass] 31.2 pg 27 - 34 pg [facility] MCHC (RBC) [Mass/Vol] 34.8 g/dL 32 - 3 6 g/dL [facility] MCV (RBC) [Entitic vol] 90 fL 80 - 100 fL [facility] Monocytes (Bld) [#/Vol] 0.5 10*3/uL 0.0 [...] [facility] RBC (Bld) [#/Vol] 4.17 10*6/uL [facility] WBC LM Ql (Sput) 4.8 [facility] [employer] [facility] perfusion [...] Nico Dempsey MD on 06/17/2025 5:08 PM [facility] Nico Dempsey MD - 06/17/2025 CT [...] Nico Dempsey MD on 06/17/2025 5:08 PM [facility] Radiology Study observation (narrative) [facility] CT perfusion HeadOrdered By: Nico Dempsey on 06-17-2025 [facility] [employer] [facility] Work Phone: Comprehensive metabolic pane patricio 06-17-2025 Albumin [Mass/Vol] 3.9 g/dL 3.2 - 5.3 g/dL [facility] ALP [Catalytic activity/Vol] 81 U/L 39 - 130 U/L [facility] ALT No additional P-5'-P [Catalytic activity/Vol] 11 U/L NINF - 40 U/L [facility] Anion gap [Moles/Vol] 8 mmol/L 5 - 15 mmol/L [facility] AST [Catalytic activity/Vol] 20 U/L NINF - 41 U/L [facility] Bilirubin [Mass/Vol] 1.1 mg/dL 0.3 - 1 .2 mg/dL [facility] Calcium [Mass/Vol] 9.2 mg/dL 8.5 - 10. 5 mg/dL [facility] Chloride [Moles/Vol] 93 mmol/L Low 98 - 10 9 mmol/L [facility] CO2 [Moles/Vol] 26 mmol/L 22 - 32 mmol/L [facility] Creatinine [Mass/Vol] 0.75 mg/dL 0.60 - 1.30 mg/dL [facility] Comment on above: METHOD TRACEABLE TO IDMS STANDARD EGFR Non-Race Dependent 90 - PINF [facility] Comment on above: Reported eGFR is bas ed on the CKD-EPI 2020 equation that does not use a race coefficient. Glucose [Mass/Vol] 94 mg/dL 65 - 99 mg/dL [facility] Potassium [Moles/Vol] 4.5 mmol/L 3.5 - 5.0 mmol/L [facility] Protein [Mass/Vol] 6.5 g/dL 6.0 - 8.0 g/dL [facility] Sodium [Moles/Vol] 127 mmol/L Low 134 - 146 mmol/L [facility] Urea nitrogen [Mass/Vol] 10 mg/dL 5 - 27 mg/dL [facility] Magnesiumon 06-17-2025 Magnesium [Mass/Vol] 1.7 mg/dL Low 1.8 - 2 .6 mg/dL [facility] No Panel Informationon 06-17 Interpretation and review of laboratory results Abnormal [facility] Phosphoruson 06-17-2025 Interpretation and review of laboratory results Normal [facility] Phosphate [Mass/Vol] 3.3 mg/dL 2.4 - 4 .9 mg/dL [facility] Population Healthon 06-14-20 25 [facility] Case Information Case Priority: None Programs: -- Referral Source: Make Up Artist Referral Reason: Care coordination Case Type: Transition [...] Care Plan Progress Note Admit Date: 06/12/25 [facility] Discharge Date: 06/13/25 Follow-up appointment scheduled? yes, TCM with PCPPedro 06/19/25 at 1340 Did you understand your discharge instructions? yes Are you able to follow them? yes Did you receive new medications? yes, ASA 81 mg QD. stop; lisinopril, meloxicam Have you filled the Rx's? 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 Normal [facility] CMPon 06-07-2025 Albumin [Mass/Vol] 4.1 g/dL Normal 3.3-5.0 [facility] Comment on above: Performed By: #### 2 [id number] #### [facility] [address] [place] [address] Albumin/Globulin [Mass ratio] 1.6 {ratio} Normal 1.1-2.2 [facility] Comment on above: Performed By: #### 2 [id number] #### [facility] [address] [place] [address] Alk Phos 86 Int._Unit/L Normal 21-98 [facility] Comment on above: Performed By: #### 2 [id number] #### [facility] [address] [place] [address] ALT 12 Int._Unit/L Normal 6-46 [facility] Comment on above: Performed By: #### 2 [id number] #### [facility] [address] [place] [address] Anion gap [Moles/Vol] 9 mmol/L Normal 6-16 [facility] Comment on above: Performed By: #### 2 [id number] #### [facility] [address] [place] [address] AST 24 Int._Unit/L Normal 5-43 [facility] Comment on above: Performed By: #### 2 [id number] #### [facility] [address] [place] [address] Bili Total 1.0 mg/dL Normal 0.0-1.1 [facility] Comment on above: Performed By: #### 2 [id number] #### [facility] [address] [place] [address] BUN/Creat Ratio 26 No Units High 10-20 [facility] Comment on above: Performed By: #### 2 [id number] #### [facility] [address] [place] [address] Calcium [Mass/Vol] 9.8 mg/dL Normal 8.9-11.1 [facility] Comment on above: Performed By: #### 2 [id number] #### [facility] [address] [place] [address] Chloride [Moles/Vol] 95 mmol/L Low 101-111 [facility] Comment on above: Performed By: #### 2 [id number] #### [facility] [address] [place] [address] CO2 [Moles/Vol] 27 mmol/L Normal 21-31 [facility] Comment on above: Performed By: #### 2 [id number] #### [facility] [address] [place] [address] Creatinine [Mass/Vol] 1.1 mg/dL Normal 0.5-1.3 [facility] Comment on above: Performed By: #### 2 [id number] #### [facility] [address] [place] [address] Globulin (S) [Mass/Vol] 2.6 g/dL Normal 1.4-4.0 [facility] Comment on above: Performed By: #### 2 [id number] #### [facility] [address] [place] [address] Glucose [Mass/Vol] 190 mg/dL Normal 55-199 [facility] Comment on above: Performed By: #### 2 [id number] #### [facility] [address] [place] [address] Potassium [Moles/Vol] 4.2 mmol/L Normal 3.5-5.3 [facility] Comment on above: Performed By: #### 2 [id number] #### [facility] [address] [place] [address] Protein [Mass/Vol] 6.7 g/dL Normal 6.0-7.8 [facility] Comment on above: Performed By: #### 2 [id number] #### [facility] [address] [place] [address] Sodium [Moles/Vol] 127 mmol/L Low 135-145 [facility] Comment on above: Performed By: #### 2 [id number] #### [facility] [address] [place] [address] Urea nitrogen [Mass/Vol] 29 mg/dL High 5-21 [facility] Comment on above: Performed By: #### 2 [id number] #### [facility] [address] [place] [address] Family Medicine Office/Clini c Noteon 06-07-2025 Family Medicine Office/Clinic Note Family Medicine Office/Clinic Note Chief Complaint Discuss Medications The patient presents for a follow-up after hospitalization due to a nasal fracture. HPI Staff Former Dr Garcia pt. Pt presents today to follow up to hospitalization in [place]. Fell and hit his nose. Went to [facility] ER due to excessive bleeding. They packed it and DC'd pt. Upon arrival home, nose started bleeding again. Pt went back to ER, [place]. He was then transferred to [facility] in [place] where they admitted him for 3-4days. Sodium was dc'd. And pt was started on Lisinopril & Keflex & Ure-NA History of Present Illness 85-year-old male presents with his following a recent hospital stay for a nasal fracture. The incident occurred when the patient fell while attempting to lacey his stomach, resulting in a nasal fracture and subsequent bleeding. He was initially treated at [facility] with nasal packing and later transferred to [facility] for further management. During hospitalization, [...] Hypo-osmolality and hyponatremia) - Reviewed documents from [facility] in [place] - Sodium level on discharge 127 - Awaiting laboratory results - f/u in one week Ordered: Non-Formulary Medication, Ure-Na, See Instructions, 15 packet(s), 0, Natural Lemon Kake flavor, [id number], Supply, 178.6, cm, 06/07/25 [...] See Instructions, 15 packet(s), 0, Natural Lemon Kake flavor, [id number], Supply, 178.6, cm, 06/07/25 10:56:00 EDT, Height/Length Dosing, 74.3, kg, 06/07/25 10:56:00 EDT, Weight Dosing 4. Nonsmoker (Z78.9: Other specified health status) Encouraged to continue as a non-smoker Ordered: Non-Formulary Medication, Ure-Na, See Instructions, 15 packet(s), 0, Natural Lemon Kake flavor, [id number], Supply, 178.6, cm, 06/07/25 10:56:00 EDT, Height/Length Dosing, 74.3, kg, 06/07/25 10:56:00 EDT, Weight Dosing total time spent preparing the chart, conducting of the encounter with the patient and family and time spent documenting, reviewing, and ordering tests was 40 minutes. Follow-up With When Contact Information YANIQUE MCNEILL CNP, FAM In 6 days 06/13/2025 EDT [address] [place] [address] Business (1) Additional Instructions: Patient Education Hyponatremia, Ogco-wc-Uxeg Problem List/Past Medical History Ongoing ASCVD (arteriosclerotic cardiovascular disease) Back spasm BMI 23.0-23.9, adult BMI 25.0-25.9,adult Carpal tunnel syndrome, left DM type 2 causing vascular disease Encounter for surveillance of abnormal nevi Erectile dysfunction due to arterial insufficiency Hard of hearing Hyperlipidemia Hyponatremia Hypothyroid Longstanding persistent atrial fibrillation Non (more content not included)... Normal [facility] Comment on above: Result Comment: Elec tronically Signed By: YANIQUE MCNEILL CNP\.br\Date and Time Signed: 06/07/25 14:35 EDT eGFRon 06-07-2025 eGFR 67 mL/min/1.73 m2 Normal >=59 [facility] Comment on above: Performed By: #### 1 [id number] #### [facility] [address] [place] [address] Basic Metabolic Panelon 05-15 Anion gap [Moles/Vol] 12 mmol/L 9 - 16 mmol/L [facility] Calcium [Mass/Vol] 9.2 mg/dL 8.6 - 10. 4 mg/dL [facility] Chloride [Moles/Vol] 95 mmol/L Low 98 - 10 7 mmol/L [facility] CO2 [Moles/Vol] 19 mmol/L Low 20 - 31 mmol/L [facility] Creatinine [Mass/Vol] 0.8 mg/dL 0.7 - 1.2 mg/dL [facility] Jesu Appiaht Rate 88 - PINF [facility] [...] 112 mg/dL High 74 - 99 mg/dL [facility] Interpretation and review of laboratory results Abnormal [facility] Potassium [Moles/Vol] 4.5 mmol/L 3.7 - 5.3 mmol/L [facility] Comment on above: Specimen hemolysis h as exceeded the interference as defined by Sindy. Value may be falsely increased. Suggest recollection if clinically indicated. Sodium [Moles/Vol] 126 mmol/L Low 136 - 145 mmol/L [facility] Urea nitrogen [Mass/Vol] 13 mg/dL 8 - 23 mg/dL [facility] Basic Metabolic Profon 06-05 Anion gap [Moles/Vol] 12 mmol/L Normal 9-16 [facility] Comment on above: Performed By: #### P T, BMP #### [facility] [address] [place], [place] [phone] Asphalt Mixer: Pankaj Cordoba MD Calcium [Mass/Vol] 9.2 mg/dL Normal 8.6-10.4 [facility] Comment on above: Performed By: #### P T, BMP #### [facility] [address] [place] [address] [employer]phalt Mixer: Pankaj Cordoba MD Chloride [Moles/Vol] 95 mmol/L Low 98-107 [facility] Comment on above: Performed By: #### P T, BMP #### [address] [address] Asphalt Mixer: Pankaj Cordoba MD CO2 [Moles/Vol] 19 mmol/L Low 20-31 [facility] Comment on above: Performed By: #### P T, BMP #### [address] [address] [employer]phalt Mixer: Pankaj Cordoba MD Creatinine [Mass/Vol] 0.8 mg/dL Normal 0.7-1.2 [facility] Comment on above: Performed By: #### P T, BMP #### [address] [address] [employer]phalt Mixer: Pankaj Cordoba MD GFR/1.73 sq M.predicted among non-blacks MDRD (S/P/Bld) [Vol rate/Area] 88 mL/min/{1.73_m2} Normal >60 [facility] Comment on above: Result Comment: These results [...] Performed By: #### P T, BMP #### [address] [address] [employer]phalt Mixer: Pankaj Cordoba MD Glucose [Mass/Vol] 112 mg/dL High 74-99 [facility] Comment on above: Performed By: #### P T, BMP #### [address] [address] [employer]phalt Mixer: Pankaj Cordoba MD Potassium [Moles/Vol] 4.5 mmol/L Normal 3.7-5.3 [facility] Comment on above: Result Comment: Spec imen hemolysis has exceeded the interference as defined by Sindy. Value may be falsely increased. Suggest recollection if clinically indicated. Performed By: #### P T, BMP #### [facility] [address] [place] [address] Asphalt Mixer: Pankaj Cordoba MD Sodium [Moles/Vol] 126 mmol/L Low 136-145 [facility] Comment on above: Performed By: #### P T, BMP #### [facility] [address] [place] [address] Asphalt Mixer: Pankaj Cordoba MD Urea nitrogen [Mass/Vol] 13 mg/dL Normal 07-06 [facility] Comment on above: Performed By: #### P T, BMP #### [facility] [address] [place] [address] Asphalt Mixer: Pankaj Cordoba MD Electrolyte Panelon 06-05-20 Anion gap [Moles/Vol] 16 mmol/L 9 - 16 mmol/L [facility] [employer] Chloride [Moles/Vol] 92 mmol/L Low 98 - 10 7 mmol/L [facility] [employer] CO2 [Moles/Vol] 19 mmol/L Low 20 - 31 mmol/L [facility] [employer] Interpretation and review of laboratory results Abnormal [facility] [employer] Potassium [Moles/Vol] 4.4 mmol/L 3.7 - 5.3 mmol/L [facility] [employer] Comment on above: Specimen hemolysis h as exceeded the interference as defined by Sindy. Value may be falsely increased. Suggest recollection if clinically indicated. Sodium [Moles/Vol] 127 mmol/L Low 136 - 145 mmol/L [facility] [employer] [facility] [employer] Electrolyteson 06-05-2025 Anion gap [Moles/Vol] 16 mmol/L Normal 9-16 [facility] Comment on above: Performed By: #### L YTE ####[facility] [address] [place] [address] Lab Director: Pankaj Cordoba MD Chloride [Moles/Vol] 92 mmol/L Low 98-107 [facility] Comment on above: Performed By: #### L YTE ####[facility] [address] [place] [address] Lab Director: Pankaj Cordoba MD CO2 [Moles/Vol] 19 mmol/L Low 20-31 [facility] Comment on above: Performed By: #### L YTE ####[facility] [address]mwjc[address] [place] [address] lab Director: Pankaj Cordoba MD Potassium [Moles/Vol] 4.4 mmol/L Normal 3.7-5.3 [facility] Comment on above: Result Comment: Spec imen hemolysis has exceeded the interference as defined by Sindy. Value may be falsely increased. Suggest recollection if clinically indicated. Performed By: #### L YTE ####[facility] [address] [place] [address] Lab Director: Pankaj Cordoba MD Sodium [Moles/Vol] 127 mmol/L Low 136-145 [facility] Comment on above: Performed By: #### L YTE ####[facility] [address] [place] [address] Lab Director: Pankaj Cordoba MD Glucose,Whole Bloodon 2024 Glucose [Mass/Vol] 145 mg/dL High 75-110 [facility] Glucose [Mass/Vol] 108 mg/dL Normal 75-110 [facility] POC Glucose Fingerstickon Glucose [Mass/Vol] 145 mg/dL High 75 - 110 mg/dL [facility] [employer] Interpretation and review of laboratory results Abnormal [facility] Glucose [Mass/Vol] 108 mg/dL 75 - 110 mg/dL [facility] [employer] [facility] [employer] PTon 06-05-2025 INR Coag (PPP) [Relative time] 1.9 {INR} Normal [facility] Comment on above: Result Comment: Therapeutic Range: Moderate Anticoagulant Intensity: INR = 2.0-3.0 High Anticoagulant Intensity: INR = 2.5-3.5 Performed By: #### P T, BMP #### [facility] [address] [place] [address] Asphalt Mixer: Pankaj Cordoba MD PT Coag (PPP) [Time] 22.4 s High 11.7-14.9 [facility] Comment on above: Performed By: #### P T, BMP #### [facility] [address] [place], [place] [phone] Asphalt Mixer: Pankaj Cordoba MD Protime-INRon 06-05-2025 INR Coag (PPP) [Relative time] 1.9 {INR} [facility] [employer] Comment on above: Therapeutic Range: Moderate Anticoagulant Intensity: INR = 2.0-3.0 High Anticoagulant Intensity: INR = 2.5-3.5 Interpretation and review of laboratory results Abnormal [facility] [employer] PT Coag (PPP) [Time] 22.4 s High [facility] Arterial Bld Gas,POCon 06-04 HCO3 (Bld) [Moles/Vol] 24.6 mmol/L Normal 21.0-28.0 [facility] O2 Device Room Air Normal [facility] Oxygen saturation in Blood 97.2 % Normal 94.0-98.0 [facility] pCO2, Arterial 38.6 mm Hg Normal 35.0-48.0 [facility] pH, Arterial 7.412 Normal 7.350-7.450 [facility] pO2, Arterial 91.7 mm Hg Normal 83.0-108.0 [facility] Positive Base Excess (calc) 0.1 mmol/L Normal 0.0-3.0 [facility] Site Drawn Right Radial Artery Normal [facility] Arterial Blood Gas, POCon HCO3 (Bld) [Moles/Vol] 24.6 mmol/L 21.0 - 28.0 mmol/L [facility] O2 Delivery Device Room Air [facility] Oxygen saturation in Blood 97.2 % 94.0 - 98.0 % [facility] POC pCO2 38.6 [facility] POC pH 7.412 7.350 - 7.450 [facility] POC PO2 91.7 [facility] Positive Base Excess, Art 0.1 mmol/L 0.0 - 3.0 mmol/L [facility] Sample Site Right Radial Artery [facility] BUN, POCon 06-04-2025 Urea nitrogen [Mass/Vol] 11 mg/dL Normal 8-26 [facility] Basic Metab w/rfx MGon 06-04 Anion gap [Moles/Vol] 10 mmol/L Normal 9-16 [facility] Comment on above: Performed By: #### B MPX ####[address] [place] [address] Lab Director: Pankaj Cordoba MD Calcium [Mass/Vol] 8.6 mg/dL Normal 8.6-10.4 [facility] Comment on above: Performed By: #### B MPX ####[facility] [address] [place] [address] Lab Director: Pankaj Cordoba MD Chloride [Moles/Vol] 87 mmol/L Low 98-107 [facility] Comment on above: Performed By: #### B MPX ####[facility] [address] [place] [address] Lab Director: Pankaj Cordoba MD CO2 [Moles/Vol] 21 mmol/L Normal 20-31 [facility] Comment on above: Performed By: #### B MPX ####[facility] [address] [place] [address] Lab Director: Pankaj oCrdoba MD Creatinine [Mass/Vol] 0.7 mg/dL Normal 0.7-1.2 [facility] Comment on above: Performed By: #### B MPX ####[facility] [address] [place] [address] Lab Director: Pankaj Cordoba MD GFR/1.73 sq M.predicted among non-blacks MDRD (S/P/Bld) [Vol rate/Area] mL/min/{1.73_m2} Normal >60 [facility] Comment on above: Result Comment: These results [...] tubular secretion. Performed By: #### B MPX ####[facility] [address] [place] [address])[phone] Director: Pankaj Cordoba MD Glucose [Mass/Vol] 107 mg/dL High 74-99 [facility] Comment on above: Performed By: #### B MPX ####[facility] [address] [place] [address] Lab Director: Pankaj Cordoba MD Potassium [Moles/Vol] 4.8 mmol/L Normal 3.7-5.3 [facility] Comment on above: Result Comment: Spec imen hemolysis has exceeded the interference as defined by Sindy. Value may be falsely increased. Suggest recollection if clinically indicated. Performed By: #### B MPX ####[facility] [address] [place] [address] Lab Director: Pankaj Cordoba MD Sodium [Moles/Vol] 118 mmol/L Critically low 136-145 [facility] Comment on above: Performed By: #### B MPX ####[facility] [address] [place] [address] Lab Director: Pankaj Cordoba MD Urea nitrogen [Mass/Vol] 11 mg/dL Normal 8-23 [facility] Comment on above: Performed By: #### B MPX ####[facility] [address] [place] [address] Lab Director: Pankaj Cordoba MD Anion gap [Moles/Vol] 12 mmol/L Normal 9-16 [facility] Comment on above: Performed By: #### B MPX #### [facility] [address] [place] [address] [employer]phalt Mixer: Pankaj Cordoba MD Calcium [Mass/Vol] 8.8 mg/dL Normal 8.6-10.4 [facility] Comment on above: Performed By: #### B MPX #### [address] [address] Asphalt Mixer: Pankaj Cordoba MD Chloride [Moles/Vol] 88 mmol/L Low 98-107 [facility] Comment on above: Performed By: #### B MPX #### [address] [address] Asphalt Mixer: Pankaj Cordoba MD CO2 [Moles/Vol] 19 mmol/L Low 20-31 [facility] Comment on above: Performed By: #### B MPX #### [address] [address] Asphalt Mixer: Pankaj Cordoba MD Creatinine [Mass/Vol] 0.6 mg/dL Low 0.7-1.2 [facility] Comment on above: Performed By: #### B MPX #### [address] [address] [employer]phalt Mixer: Pankaj Cordoba MD GFR/1.73 sq M.predicted among non-blacks MDRD (S/P/Bld) [Vol rate/Area] mL/min/{1.73_m2} Normal >60 [facility] Comment on above: Result Comment: These results [...] secretion. Performed By: #### B MPX #### [facility] [address] [place] [address] [employer]er: Pankaj Cordoba MD Glucose [Mass/Vol] 86 mg/dL Normal 74-99 [facility] Comment on above: Performed By: #### B MPX #### [facility] [employer] [address] [place] [address] [employer]er: Pankaj Cordoba MD Potassium [Moles/Vol] 4.6 mmol/L Normal 3.7-5.3 [facility] Comment on above: Result Comment: Spec imen hemolysis has exceeded the interference as defined by Sindy. Value may be falsely increased. Suggest recollection if clinically indicated. Performed By: #### B MPX #### [facility] [employer] [address] [place] [address] Asphalt Mixer: Pankaj Cordoba MD Sodium [Moles/Vol] 119 mmol/L Critically low 136-145 [facility] Comment on above: Performed By: #### B MPX #### [facility] [address] [place] [address] As[employer]er: Pankaj Cordoba MD Urea nitrogen [Mass/Vol] 11 mg/dL Normal 8-23 [facility] Comment on above: Performed By: #### B MPX #### [facility] [employer] [address] [place] [address] [employer]er: Pankaj Cordoba MD Anion gap [Moles/Vol] 12 mmol/L Normal 9-16 [facility] Comment on above: Performed By: #### B MPX ####[facility] [address] [place] [address] Lab Director: Pankaj Cordoba MD Calcium [Mass/Vol] 8.7 mg/dL Normal 8.6-10.4 [facility] Comment on above: Performed By: #### B MPX ####[facility] [address] [place], [place] [phone] Director: Pankaj Cordoba MD Chloride [Moles/Vol] 88 mmol/L Low 98-107 [facility] Comment on above: Performed By: #### B MPX ####[facility] [address] [place], [place] [phone] Director: Pankaj Cordoba MD CO2 [Moles/Vol] 19 mmol/L Low 20-31 [facility] Comment on above: Performed By: #### B MPX ####[address] [phone] Director: Pankaj Cordoba MD Creatinine [Mass/Vol] 0.6 mg/dL Low 0.7-1.2 [facility] Comment on above: Performed By: #### B MPX ####[address] [phone] Director: Pankaj Cordoba MD GFR/1.73 sq M.predicted among non-blacks MDRD (S/P/Bld) [Vol rate/Area] mL/min/{1.73_m2} Normal >60 [facility] Comment on above: Result Comment: These results [...] tubular secretion. Performed By: #### B MPX ####[address] [phone] Director: Pankaj Cordoba MD Glucose [Mass/Vol] 81 mg/dL Normal 74-99 [facility] Comment on above: Performed By: #### B MPX ####[facility] [address] [place], [place] [phone] Director: Pankaj Cordoba MD Potassium [Moles/Vol] 4.1 mmol/L Normal 3.7-5.3 [facility] Comment on above: Result Comment: Spec imen hemolysis has exceeded the interference as defined by Sindy. Value may be falsely increased. Suggest recollection if clinically indicated. Performed By: #### B MPX ####[facility] [address] [place] [address] [phone] Director: Pankaj Cordoba MD Sodium [Moles/Vol] 119 mmol/L Critically low 136-145 [facility] Comment on above: Performed By: #### B MPX ####[facility] [address] [place], [place] [phone] Director: Pankaj Cordoba MD Urea nitrogen [Mass/Vol] 11 mg/dL Normal 8-23 [facility] Comment on above: Performed By: #### B MPX ####[facility] [address] [place], [place] [phone] Director: Pankaj Cordoba MD Anion gap [Moles/Vol] 11 mmol/L Normal 9-16 [facility] Comment on above: Performed By: #### O SMO #### [facility] [employer] [facility] [place] [address] Asphalt Mixer: Pankaj Cordoba MD Calcium [Mass/Vol] 9.0 mg/dL Normal 8.6-10.4 [facility] Comment on above: Performed By: #### O SMO #### [address] [place] [address] Asphalt Mixer: Pankaj Cordoba MD Chloride [Moles/Vol] 88 mmol/L Low 98-107 [facility] Comment on above: Performed By: #### O SMO #### [facility] [address] [place] [address] Asphalt Mixer: Pankaj Cordoba MD CO2 [Moles/Vol] 21 mmol/L Normal 20-31 [facility] Comment on above: Performed By: #### O SMO #### [address] [address] Asphalt Mixer: Pankaj Cordoba MD Creatinine [Mass/Vol] 0.6 mg/dL Low 0.7-1.2 [facility] Comment on above: Performed By: #### O SMO #### [address] [address] Asphalt Mixer: Pankaj Cordoba MD GFR/1.73 sq M.predicted among non-blacks MDRD (S/P/Bld) [Vol rate/Area] mL/min/{1.73_m2} Normal >60 [facility] Comment on above: Result Comment: These results [...] secretion. Performed By: #### O SMO #### [address] [address] Asphalt Mixer: Pankaj Cordoba MD Glucose [Mass/Vol] 75 mg/dL Normal 74-99 [facility] Comment on above: Performed By: #### O SMO #### [address] [address] Asphalt Mixer: Pankaj Cordoba MD Potassium [Moles/Vol] 4.3 mmol/L Normal 3.7-5.3 [facility] Comment on above: Performed By: #### O SMO #### [facility] [address] [place] [address] Asphalt Mixer: Pankaj Cordoba MD Sodium [Moles/Vol] 120 mmol/L Low 136-145 [facility] Comment on above: Performed By: #### O SMO #### [facility] [address] [place] [address] Asphalt Mixer: Pankaj Cordoba MD Urea nitrogen [Mass/Vol] 11 mg/dL Normal 8-23 [facility] Comment on above: Performed By: #### O SMO #### [facility] [employer] [address] [place] [address] [employer]er: Pankaj Cordoba MD Anion gap [Moles/Vol] 14 mmol/L Normal 9-16 [facility] Comment on above: Performed By: #### B MPX ####[facility] [address] [place], [place] [phone] Director: Pankaj Cordoba MD Calcium [Mass/Vol] 8.5 mg/dL Low 8.6-10.4 [facility] Comment on above: Performed By: #### B MPX ####[facility] [address] [place], [place] [phone] Director: Pankaj Cordoba MD Chloride [Moles/Vol] 89 mmol/L Low 98-107 [facility] Comment on above: Performed By: #### B MPX ####[facility] [address]qks[address] [place], [place] [phone] Director: Pankaj Cordoba MD CO2 [Moles/Vol] 17 mmol/L Low 20-31 [facility] Comment on above: Performed By: #### B MPX ####[facility] [address] [place], [place] [phone] Director: Pankaj Cordoba MD Creatinine [Mass/Vol] 0.6 mg/dL Low 0.7-1.2 [facility] Comment on above: Performed By: #### B MPX ####[address] [address] Lab Director: Pankaj Cordoba MD GFR/1.73 sq M.predicted among non-blacks MDRD (S/P/Bld) [Vol rate/Area] mL/min/{1.73_m2} Normal >60 [facility] Comment on above: Result Comment: These results [...] tubular secretion. Performed By: #### B MPX ####[place], [place] [address])[phone] Director: Pankaj Cordoba MD Glucose [Mass/Vol] 76 mg/dL Normal 74-99 [facility] Comment on above: Performed By: #### B MPX ####[address] [address] lab Director: Pankaj Cordoba MD Potassium [Moles/Vol] 4.4 mmol/L Normal 3.7-5.3 [facility] Comment on above: Result Comment: Spec imen hemolysis has exceeded the interference as defined by Sindy. Value may be falsely increased. Suggest recollection if clinically indicated. Performed By: #### B MPX ####[facility] [address] [place] [address] Lab Director: Pankaj Cordoba MD Sodium [Moles/Vol] 120 mmol/L Low 136-145 [facility] Comment on above: Performed By: #### B MPX ####[place] [address] Lab Director: Pankaj Cordoba MD Urea nitrogen [Mass/Vol] 11 mg/dL Normal 8-23 [facility] Comment on above: Performed By: #### B MPX ####[facility] [address] [place], [place] [phone] Director: Pankaj Cordoba MD Anion gap [Moles/Vol] 15 mmol/L Normal 9-16 [facility] Comment on above: Performed By: #### B MPX ####[facility] [address] [place], [place] [phone] Director: Pankaj Cordoba MD Calcium [Mass/Vol] 8.6 mg/dL Normal 8.6-10.4 [facility] Comment on above: Performed By: #### B MPX ####[address] [address])[phone] Director: Pankaj Cordoba MD Chloride [Moles/Vol] 86 mmol/L Low 98-107 [facility] Comment on above: Performed By: #### B MPX ####[facility] [address] [place], [place] [phone] Director: Pankaj Cordoba MD CO2 [Moles/Vol] 16 mmol/L Low 20-31 [facility] Comment on above: Performed By: #### B MPX ####[facility] [address] [place], [place] [phone] Director: Pankaj Cordoba MD Creatinine [Mass/Vol] 0.7 mg/dL Normal 0.7-1.2 [facility] Comment on above: Performed By: #### B MPX ####[facility] [address] [place], [place] [address])[phone] Director: Pankaj Cordoba MD GFR/1.73 sq M.predicted among non-blacks MDRD (S/P/Bld) [Vol rate/Area] mL/min/{1.73_m2} Normal >60 [facility] Comment on above: Result Comment: These results [...] tubular secretion. Performed By: #### B MPX ####[facility] [address] [place], [place] [phone] Director: Pankaj Cordoba MD Glucose [Mass/Vol] 90 mg/dL Normal 74-99 [facility] Comment on above: Performed By: #### B MPX ####[address] [phone] Director: Pankaj Cordoba MD Potassium [Moles/Vol] 4.1 mmol/L Normal 3.7-5.3 [facility] Comment on above: Result Comment: Spec imen hemolysis has exceeded the interference as defined by Sindy. Value may be falsely increased. Suggest recollection if clinically indicated. Performed By: #### B MPX ####[facility] [address] [place] [address] [phone] Director: Pankaj Cordoba MD Sodium [Moles/Vol] 117 mmol/L Critically low 136-145 [facility] Comment on above: Performed By: #### B MPX ####[facility] Z[address] [place], [place] [phone] Director: Pankaj Cordoba MD Urea nitrogen [Mass/Vol] 12 mg/dL Normal 8-23 [facility] Comment on above: Performed By: #### B MPX ####[facility] [address] [place], [place] [phone] Director: Pankaj Cordoba MD Basic Metabolic Panel w/ Ref maura to MGon 06-04-2025 Anion gap [Moles/Vol] 10 mmol/L 9 - 16 mmol/L [facility] Calcium [Mass/Vol] 8.6 mg/dL 8.6 - 10. 4 mg/dL [facility] Chloride [Moles/Vol] 87 mmol/L Low 98 - 10 7 mmol/L [facility] CO2 [Moles/Vol] 21 mmol/L 20 - 31 mmol/L [facility] Creatinine [Mass/Vol] 0.7 mg/dL 0.7 - 1.2 mg/dL [facility] Est, Jesu Michele Rate - [...] 107 mg/dL High 74 - 99 mg/dL [facility] Interpretation and review of laboratory results Abnormal [facility] Potassium [Moles/Vol] 4.8 mmol/L 3.7 - 5.3 mmol/L [facility] Comment on above: Specimen hemolysis h as exceeded the interference as defined by Sindy. Value may be falsely increased. Suggest recollection if clinically indicated. Sodium [Moles/Vol] 118 mmol/L Critically low 136 - 1 45 mmol/L [facility] Urea nitrogen [Mass/Vol] 11 mg/dL 8 - 23 mg/dL [facility] Anion gap [Moles/Vol] 12 mmol/L 9 - 16 mmol/L [facility] Calcium [Mass/Vol] 8.8 mg/dL 8.6 - 10. 4 mg/dL [facility] Chloride [Moles/Vol] 88 mmol/L Low 98 - 10 7 mmol/L [facility] CO2 [Moles/Vol] 19 mmol/L Low 20 - 31 mmol/L [facility] Creatinine [Mass/Vol] 0.6 mg/dL Low 0.7 - 1.2 mg/dL [facility] Est, Glom Robertot Rate - PINF [facility] Yippy [facility] [employer] Comment on above: These results are not [...] [Mass/Vol] 86 mg/dL 74 - 99 mg/dL [facility] Interpretation and review of laboratory results Abnormal [facility] Potassium [Moles/Vol] 4.6 mmol/L 3.7 - 5.3 mmol/L [facility] Comment on above: Specimen hemolysis h as exceeded the interference as defined by Sindy. Value may be falsely increased. Suggest recollection if clinically indicated. Sodium [Moles/Vol] 119 mmol/L Critically low 136 - 1 45 mmol/L [facility] [employer] Urea nitrogen [Mass/Vol] 11 mg/dL 8 - 23 mg/dL [facility] Hospital[facility] Anion gap [Moles/Vol] 12 mmol/L 9 - 16 mmol/L [facility] Calcium [Mass/Vol] 8.7 mg/dL 8.6 - 10. 4 mg/dL [facility] [employer] Chloride [Moles/Vol] 88 mmol/L Low 98 - 10 7 mmol/L [facility] [employer] CO2 [Moles/Vol] 19 mmol/L Low 20 - 31 mmol/L [facility] Creatinine [Mass/Vol] 0.6 mg/dL Low 0.7 - 1.2 mg/dL [facility] Est, Glom Robertot Rate - PINF [facility] Comment on above: These results are not [...] [Mass/Vol] 81 mg/dL 74 - 99 mg/dL [facility] Interpretation and review of laboratory results Abnormal [facility] Potassium [Moles/Vol] 4.1 mmol/L 3.7 - 5.3 mmol/L [facility] Comment on above: Specimen hemolysis h as exceeded the interference as defined by Sindy. Value may be falsely increased. Suggest recollection if clinically indicated. Sodium [Moles/Vol] 119 mmol/L Critically low 136 - 1 45 mmol/L [facility] Urea nitrogen [Mass/Vol] 11 mg/dL 8 - 23 mg/dL [facility] Anion gap [Moles/Vol] 11 mmol/L 9 - 16 mmol/L [facility] Calcium [Mass/Vol] 9 mg/dL 8.6 - 10. 4 mg/dL [facility] Chloride [Moles/Vol] 88 mmol/L Low 98 - 10 7 mmol/L [facility] CO2 [Moles/Vol] 21 mmol/L 20 - 31 mmol/L [facility] Creatinine [Mass/Vol] 0.6 mg/dL Low 0.7 - 1.2 mg/dL [facility] Est, Glom Robertot Rate - PINF [facility] [...] [Mass/Vol] 75 mg/dL 74 - 99 mg/dL [facility] Hospital[facility] Interpretation and review of laboratory results Abnormal [facility] Potassium [Moles/Vol] 4.3 mmol/L 3.7 - 5.3 mmol/L [facility] Sodium [Moles/Vol] 120 mmol/L Low 136 - 145 mmol/L [facility] Urea nitrogen [Mass/Vol] 11 mg/dL 8 - 23 mg/dL [facility] Anion gap [Moles/Vol] 14 mmol/L 9 - 16 mmol/L [facility] Calcium [Mass/Vol] 8.5 mg/dL Low 8.6 - 10. 4 mg/dL [facility] Chloride [Moles/Vol] 89 mmol/L Low 98 - 10 7 mmol/L [facility] CO2 [Moles/Vol] 17 mmol/L Low 20 - 31 mmol/L [facility] Creatinine [Mass/Vol] 0.6 mg/dL Low 0.7 - 1.2 mg/dL [facility] Jeus Appiah Rate - PINF [facility] [...] [Mass/Vol] 76 mg/dL 74 - 99 mg/dL [facility] Interpretation and review of laboratory results Abnormal [facility] Potassium [Moles/Vol] 4.4 mmol/L 3.7 - 5.3 mmol/L [facility] Comment on above: Specimen hemolysis h as exceeded the interference as defined by Sindy. Value may be falsely increased. Suggest recollection if clinically indicated. Sodium [Moles/Vol] 120 mmol/L Low 136 - 145 mmol/L [facility] Urea nitrogen [Mass/Vol] 11 mg/dL 8 - 23 mg/dL [facility] Anion gap [Moles/Vol] 15 mmol/L 9 - 16 mmol/L [facility] Calcium [Mass/Vol] 8.6 mg/dL 8.6 - 10. 4 mg/dL [facility] Chloride [Moles/Vol] 86 mmol/L Low 98 - 10 7 mmol/L [facility] CO2 [Moles/Vol] 16 mmol/L Low 20 - 31 mmol/L [facility] Creatinine [Mass/Vol] 0.7 mg/dL 0.7 - 1.2 mg/dL [facility] Est, Glozoe Filt Rate - PINF [facility] [...] [Mass/Vol] 90 mg/dL 74 - 99 mg/dL [facility] Interpretation and review of laboratory results Abnormal [facility] Potassium [Moles/Vol] 4.1 mmol/L 3.7 - 5.3 mmol/L [facility] Comment on above: Specimen hemolysis h as exceeded the interference as defined by Sindy. Value may be falsely increased. Suggest recollection if clinically indicated. Sodium [Moles/Vol] 117 mmol/L Critically low 136 - 1 45 mmol/L [facility] Urea nitrogen [Mass/Vol] 12 mg/dL 8 - 23 mg/dL [facility] CALCIUM, IONIC (POC)on 06-04 Calcium.ionized (Bld) [Moles/Vol] 1.18 mmol/L 1.15 - 1.33 mmol/L [facility] CT HEAD WO CONTRASTon 2024 [...] Dixon Crockett MD 06/04/25 Final result Normal [facility] CT Head WO contraston 2024 1. No acute intracranial abnormality. 2. Acute right maxillary sinusitis. [facility] EXAMINATION: CT OF THE HEAD WITHOUT [...] cells. SOFT TISSUES/SKULL: The calvarium is intact. [facility] Dixon Crockett MD - 06/04/2025 EXAMINATION: [...] intracranial abnormality. 2. Acute right maxillary sinusitis. [facility] Radiology Study observation (narrative) [facility] CT Head WO contrastOrdered B y: Dixon Crockett on 06-04-2025 [facility] Work Phone: Calcium, Ionic (POC)on 06-04 Calcium [Moles/Vol] 1.18 mmol/L Normal 1.15-1.33 [facility] Cortisolon 06-04-2025 Cortisol 11.7 ug/dL Normal 2.5-19.5 [facility] Comment on above: Result Comment: Cortisol Reference Range: AM 6.0-18.4 PM 2.7-10.5 Performed By: #### O SMO #### [facility] [employer] [facility] [place] [address] [employer]phalt Mixer: Pankaj Cordoba MD Cortisol Totalon 06-04-2025 Cortisol [Mass/Vol] 11.7 ug/dL 2.5 - 19 .5 ug/dL [facility] Comment on above: Cortisol Reference Range: AM 6.0-18.4 PM 2.7-10.5 Creatinine W/GFR Point of Ca reon 06-04-2025 Creatinine [Mass/Vol] 0.7 mg/dL 0.51 - 1.19 mg/dL [facility] eGFR, POC - PINF [facility] Comment on above: These results [...] 05-15 Creatinine [Mass/Vol] 0.7 mg/dL Normal 0.51-1.19 [facility] GFR/1.73 sq M.predicted among non-blacks MDRD (S/P/Bld) [Vol rate/Area] mL/min/{1.73_m2} Normal >60 [facility] Comment on above: Result Comment: These results [...] [Moles/Vol] 12 mmol/L 7 - 16 mmol/L [facility] Chloride [Moles/Vol] 89 mmol/L Low 98 - 10 7 mmol/L [facility] CO2 Calc (Bld) [Moles/Vol] 23 mmol/L 22 - 30 mmol/L [facility] Potassium [Moles/Vol] 3.9 mmol/L 3.5 - 4.5 mmol/L [facility] Sodium [Moles/Vol] 123 mmol/L Low 138 - 146 mmol/L [facility] Electrolyte Panelon 06-04-20 25 Anion gap [Moles/Vol] 9 mmol/L 9 - 16 mmol/L [facility] [employer] Chloride [Moles/Vol] 91 mmol/L Low 98 - 10 7 mmol/L [facility] [employer] CO2 [Moles/Vol] 21 mmol/L 20 - 31 mmol/L [facility] [employer] Interpretation and review of laboratory results Abnormal [facility] Potassium [Moles/Vol] 4.3 mmol/L 3.7 - 5.3 mmol/L [facility] Sodium [Moles/Vol] 121 mmol/L Low 136 - 145 mmol/L [facility] HospitalMarkMonitor Health [facility] HospitalCommScope [facility] Anion gap [Moles/Vol] 12 mmol/L 9 - 16 mmol/L [facility] HospitalComm[facility] Chloride [Moles/Vol] 90 mmol/L Low 98 - 10 7 mmol/L [facility] [employer] CO2 [Moles/Vol] 20 mmol/L 20 - 31 mmol/L [facility] Interpretation and review of laboratory results Abnormal [facility] Potassium [Moles/Vol] 4.3 mmol/L 3.7 - 5.3 mmol/L [facility] Sodium [Moles/Vol] 122 mmol/L Low 136 - 145 mmol/L [facility] Anion gap [Moles/Vol] 11 mmol/L 9 - 16 mmol/L [facility] Chloride [Moles/Vol] 88 mmol/L Low 98 - 10 7 mmol/L [facility] CO2 [Moles/Vol] 19 mmol/L Low 20 - 31 mmol/L [facility] Interpretation and review of laboratory results Abnormal [facility] Potassium [Moles/Vol] 4.5 mmol/L 3.7 - 5.3 mmol/L [facility] Sodium [Moles/Vol] 118 mmol/L Critically low 136 - 1 45 mmol/L [facility] Electrolyteson 06-04-2025 Anion gap [Moles/Vol] 9 mmol/L Normal 9-16 [facility] Comment on above: Performed By: #### O SMO #### [employer] [address] [place] [address] [employer]er: Pankaj Cordoba MD Chloride [Moles/Vol] 91 mmol/L Low 98-107 [facility] Comment on above: Performed By: #### O SMO #### [employer] [address] [place], [place] [id number] [employer]: Pankaj Cordoba MD CO2 [Moles/Vol] 21 mmol/L Normal 20-31 [facility] Comment on above: Performed By: #### O SMO #### [employer] [address] [place] [address] [phone] [employer]: Pankaj Cordoba MD Potassium [Moles/Vol] 4.3 mmol/L Normal 3.7-5.3 [facility] Comment on above: Performed By: #### O SMO #### [employer] [facility] [place] [address] [employer]er: Pankaj Cordoba MD Sodium [Moles/Vol] 121 mmol/L Low 136-145 [facility] Comment on above: Performed By: #### O SMO #### [facility] [address] [place] [address] [employer]er: Pankaj Cordoba MD Anion gap [Moles/Vol] 12 mmol/L Normal 9-16 [facility] Comment on above: Performed By: #### L YTE ####[facility] [address] [place], [place] [phone] Director: Pankaj Cordoba MD Chloride [Moles/Vol] 90 mmol/L Low 98-107 [facility] Comment on above: Performed By: #### L YTE ####[address] [phone] Director: Pankaj Cordoba MD CO2 [Moles/Vol] 20 mmol/L Normal 20-31 [facility] Comment on above: Performed By: #### L YTE ####[facility] [place], [place] [phone] Director: Pankaj Cordoba MD Potassium [Moles/Vol] 4.3 mmol/L Normal 3.7-5.3 [facility] Comment on above: Performed By: #### L YTE ####[facility] [address] [place], [place] [phone] Director: Pankaj Cordoba MD Sodium [Moles/Vol] 122 mmol/L Low 136-145 [facility] Comment on above: Performed By: #### L YTE ####[facility] [address] [place], [place] [phone] Director: Pankaj Cordoba MD Anion gap [Moles/Vol] 11 mmol/L Normal 9-16 [facility] Comment on above: Performed By: #### O SMO #### [facility] [address] [place] [address] [employer]er: Pankaj Cordoba MD Chloride [Moles/Vol] 88 mmol/L Low 98-107 [facility] Comment on above: Performed By: #### O SMO #### [address] [address] [employer]er: Pankaj Cordoba MD CO2 [Moles/Vol] 19 mmol/L Low 20-31 [facility] Comment on above: Performed By: #### O SMO #### [address] [address] [employer]er: Pankaj Cordoba MD Potassium [Moles/Vol] 4.5 mmol/L Normal 3.7-5.3 [facility] Comment on above: Performed By: #### O SMO #### [address] [address] [employer]er: Pankaj Cordoba MD Sodium [Moles/Vol] 118 mmol/L Critically low 136-145 [facility] Comment on above: Performed By: #### O SMO #### [address] [address] [employer]er: Pankaj Cordoba MD Anion gap [Moles/Vol] 12 mmol/L Normal 7-16 [facility] Chloride [Moles/Vol] 89 mmol/L Low 98-107 [facility] CO2 [Moles/Vol] 23 mmol/L Normal 22-30 [facility] Potassium [Moles/Vol] 3.9 mmol/L Normal 3.5-4.5 [facility] Sodium [Moles/Vol] 123 mmol/L Low 138-146 [facility] Glucose (POC)on 06-04-2025 Glucose [Mass/Vol] 81 mg/dL Normal 74-100 [facility] Glucose,Whole Bloodon 2024 Glucose [Mass/Vol] 119 mg/dL High 75-110 [facility] Glucose [Mass/Vol] 96 mg/dL Normal 75-110 [facility] Glucose [Mass/Vol] 117 mg/dL High 75-110 [facility] Glucose [Mass/Vol] 93 mg/dL Normal 75-110 [facility] Glucose [Mass/Vol] 76 mg/dL Normal 75-110 [facility] Hemoglobin and hematocrit, b loodon 06-04-2025 Hematocrit (Bld) [Volume fraction] 36 % Low 41 - 53 % [facility] Hemoglobin (Bld) [Mass/Vol] 12.3 g/dL Low 13.5 - 17.5 g/dL [facility] Hgb/Hct, POCon 06-04-2025 Hematocrit (Bld) [Volume fraction] 36 % Low 41-53 [facility] Hemoglobin (Bld) [Mass/Vol] 12.3 g/dL Low 13.5-17.5 [facility] Lactic Acid (POC)on 06-04-20 25 Lactate [Moles/Vol] 0.8 mmol/L Normal 0.56-1.39 [facility] Lactic Acid, POCon 5 POC Lactic Acid 0.8 mmol/L 0.56 - 1.39 mmol/L [facility] No Panel Informationon 06-04 [facility] Interpretation and review of laboratory results Abnormal [facility] Osmolality, Urineon 06-04-20 25 Osmolality (U) [Osmolality] 590 mosm/kg [facility] Osmolality - Urine 590 mOsm/kg Normal 80-1300 [facility] Comment on above: Performed By: #### U RNA, UOSMO ####[facility] [address] [place] [address] [facility] Director: Pankaj Cordoba MD POC Glucose Fingerstickon Glucose [Mass/Vol] 119 mg/dL High 75 - 110 mg/dL [facility] Interpretation and review of laboratory results Abnormal [facility] Glucose [Mass/Vol] 96 mg/dL 75 - 110 mg/dL [facility] Glucose [Mass/Vol] 117 mg/dL High 75 - 110 mg/dL [facility] Interpretation and review of laboratory results Abnormal [facility] Glucose [Mass/Vol] 93 mg/dL 75 - 110 mg/dL [facility] Glucose [Mass/Vol] 76 mg/dL 75 - 110 mg/dL [facility] POCT Glucoseon 06-04-2025 Glucose [Mass/Vol] 81 mg/dL 74 - 100 mg/dL [facility] POCT urea (BUN)on 06-04-2025 Urea nitrogen [Mass/Vol] 11 mg/dL 8 - 26 mg/dL [facility] PTon 06-04-2025 INR Coag (PPP) [Relative time] 1.8 {INR} Normal [facility] Comment on above: Result Comment: Therapeutic Range: Moderate Anticoagulant Intensity: INR = 2.0-3.0 High Anticoagulant Intensity: INR = 2.5-3.5 Performed By: #### P T #### [facility] [address] [place], [place] [phone] [employer]er: Pankaj Cordoba MD PT Coag (PPP) [Time] 21.4 s High 11.7-14.9 [facility] Comment on above: Performed By: #### P T #### [employer] [address] [place], [place] [phone] [employer]er: Pankaj Cordoba MD Protime-INRon 06-04-2025 INR Coag (PPP) [Relative time] 1.8 {INR} [facility] Comment on above: Therapeutic Range: Moderate Anticoagulant Intensity: INR = 2.0-3.0 High Anticoagulant Intensity: INR = 2.5-3.5 Interpretation and review of laboratory results Abnormal [facility] PT Coag (PPP) [Time] 21.4 s High [facility] Sodium, Random Uron 06-04-20 25 Sodium (U) [Moles/Vol] 159 mmol/L Normal [facility] Comment on above: No normal range esta blished. Result Comment: No n ormal range established. Performed By: #### U RNA, UOSMO ####[facility] [address] [place] [address] Lab Director: Pankaj Cordoba MD Sodium, urine, randomon 05-15 [facility] T4, Freeon 06-04-2025 Free T4 [Mass/Vol] 1.5 ng/dL 0.92 - 1. 68 ng/dL [facility] TSHon 06-04-2025 TSH Qn 2.95 m[IU]/L [facility] Thyroid Stim. Horm.on 2024 Thyroid Stim. Horm. 2.95 uIU/mL Normal 0.27-4.20 [facility] Comment on above: Performed By: #### O SMO #### [address] [address] [employer]er: Pankaj Cordoba MD Thyroxine, Freeon 06-04-2025 Thyroxine, Free 1.5 ng/dL Normal 0.92-1.68 [facility] Comment on above: Performed By: #### O SMO #### [place] [address] [employer]phalt [employer]er: Pankaj Cordoba MD Basic Metab w/rfx MGon 06-03 Anion gap [Moles/Vol] 11 mmol/L Normal 9-16 [facility] Comment on above: Performed By: #### O SMO #### [address] [address] [employer]er: Pankaj Cordoba MD Calcium [Mass/Vol] 9.0 mg/dL Normal 8.6-10.4 [facility] Comment on above: Performed By: #### O SMO #### [facility] [address] [place] [phone] [employer]er: Pankaj Cordoba MD Chloride [Moles/Vol] 90 mmol/L Low 98-107 [facility] Comment on above: Performed By: #### O SMO #### [facility] [address] [place] [phone] [employer]er: Pankaj Cordoba MD CO2 [Moles/Vol] 20 mmol/L Normal 20-31 [facility] Comment on above: Performed By: #### O SMO #### [address] [address] [employer]er: Pankaj Cordoba MD Creatinine [Mass/Vol] 0.7 mg/dL Normal 0.7-1.2 [facility] Comment on above: Performed By: #### O SMO #### [address] [address] [employer]er: Pankaj Cordoba MD GFR/1.73 sq M.predicted among non-blacks MDRD (S/P/Bld) [Vol rate/Area] mL/min/{1.73_m2} Normal >60 [facility] Comment on above: Result Comment: These results [...] secretion. Performed By: #### O SMO #### [address] [address] [employer]er: Pankaj Cordoba MD Glucose [Mass/Vol] 107 mg/dL High 74-99 [facility] Comment on above: Performed By: #### O SMO #### [address] [phone] [employer]er: Pankaj Cordoba MD Potassium [Moles/Vol] 4.8 mmol/L Normal 3.7-5.3 [facility] Comment on above: Result Comment: Spec imen hemolysis has exceeded the interference as defined by Sindy. Value may be falsely increased. Suggest recollection if clinically indicated. Performed By: #### O SMO #### [facility] [address] [place] [address] [employer]phalt Mixer: Pankaj Cordoba MD Sodium [Moles/Vol] 121 mmol/L Low 136-145 [facility] Comment on above: Performed By: #### O SMO #### [facility] [address] [place] [address] [employer]phalt Mixer: Pankaj Cordoba MD Urea nitrogen [Mass/Vol] 13 mg/dL Normal 8-23 [facility] Comment on above: Performed By: #### O SMO #### [facility] [address] [place] [address] [employer]phalt Mixer: Pankaj Cordoba MD Basic Metabolic Panel w/ Ref maura to MGon 06-03-2025 Anion gap [Moles/Vol] 11 mmol/L 9 - 16 mmol/L [facility] Calcium [Mass/Vol] 9 mg/dL 8.6 - 10. 4 mg/dL [facility] Chloride [Moles/Vol] 90 mmol/L Low 98 - 10 7 mmol/L [facility] CO2 [Moles/Vol] 20 mmol/L 20 - 31 mmol/L [facility] Creatinine [Mass/Vol] 0.7 mg/dL 0.7 - 1.2 mg/dL [facility] [employer] Est, Glom Robertot Rate - PINF [facility] [...] 107 mg/dL High 74 - 99 mg/dL [facility] Interpretation and review of laboratory results Abnormal [facility] Potassium [Moles/Vol] 4.8 mmol/L 3.7 - 5.3 mmol/L [facility] Comment on above: Specimen hemolysis h as exceeded the interference as defined by Sindy. Value may be falsely increased. Suggest recollection if clinically indicated. Sodium [Moles/Vol] 121 mmol/L Low 136 - 145 mmol/L [facility] Urea nitrogen [Mass/Vol] 13 mg/dL 8 - 23 mg/dL [facility] CBC with Auto Differentialon 06-03-2025 Basophils (Bld) [#/Vol] 0.04 10*3/uL [facility] Basophils/100 WBC (Bld) 1 % 0 - 2 % [facility] Eosinophils (Bld) [#/Vol] 0.08 10*3/uL [facility] Eosinophils/100 WBC (Bld) 1 % 1 - 4 % [facility] Erythrocyte distribution width (RBC) [Ratio] 13 % 11.8 - 14.4 % [facility] Hematocrit (Bld) [Volume fraction] 35.2 % Low 40.7 - 50.3 % [facility] Hemoglobin (Bld) [Mass/Vol] 12.3 g/dL Low 13.0 - 17.0 g/dL [facility] Immature granulocytes (Bld) [#/Vol] [facility] Immature granulocytes/100 WBC (Bld) 0 % 0 [facility] Interpretation and review of laboratory results Abnormal [facility] Lymphocytes/100 WBC (Bld) 23 % Low 24 - 43 % [facility] Lymphocytes/100 WBC (Bld) 1.68 % [facility] MCH (RBC) [Entitic mass] 30.9 pg 25.2 - 33.5 pg [facility] MCHC (RBC) [Mass/Vol] 34.9 g/dL High 28.4 - 34.8 g/dL [facility] MCV (RBC) [Entitic vol] 88.4 fL 82.6 - 102.9 fL [facility] Monocytes/100 WBC (Bld) 11 % 3 - 12 % [facility] Monocytes/100 WBC (Bld) 0.8 % [facility] Neutrophils/100 WBC (Bld) 64 % 36 - 65 % [facility] Nucleated RBC/100 WBC (Bld) [Ratio] 0 % 0.0 per 100 WBC [facility] [employer] Platelet, Fluorescence 132 Low [facility] Platelets (Bld) [#/Vol] See Reflexed IPF Result [facility] [employer] Platelets reticulated/100 platelets Auto (Bld) 5.3 % 1.1 - 10.3 % [facility] RBC (Bld) [#/Vol] 3.98 10*6/uL Low 4.21 - 5.7 7 m/uL [facility] [employer] Segmented neutrophils/100 WBC (Bld) 4.63 % [facility] WBC other (Bld) [#/Vol] 7.2 [facility] CBC with Diffon 06-03-2025 Abs. Basophil 0.04 k/uL Normal 0.00-0.20 [facility] Comment on above: Performed By: #### O SMO #### [facility] [address] [place] [address] [employer] Mixer: Pankaj Cordoba MD Abs.Imm.Granulocyte <0.03 Normal 0.00-0.30 [facility] Comment on above: Performed By: #### O SMO #### [facility] [address] [place] [id number] [employer]er: Pankaj Cordoba MD Abs.Neutrophil (Seg) 4.63 k/uL Normal 1.50-8.10 [facility] Comment on above: Performed By: #### O SMO #### [facility] [address] [place] [address] [phone] [employer]er: Pankaj Cordoba MD Basophils/100 WBC (Bld) 1 % Normal 0-2 [facility] Comment on above: Performed By: #### O SMO #### [address] [address] [employer]: Pankaj Cordoba MD Eosinophils (Bld) [#/Vol] 0.08 10*3/uL Normal 0.00-0.44 [facility] Comment on above: Performed By: #### O SMO #### [address] [address] [employer]er: Pankaj Cordoba MD Eosinophils/100 WBC (Bld) 1 % Normal 1-4 [facility] Comment on above: Performed By: #### O SMO #### [address] [address] [employer]er: Pankaj Cordoba MD Erythrocyte distribution width (RBC) [Ratio] 13.0 % Normal 11.8-14.4 [facility] Comment on above: Performed By: #### O SMO #### [address] [address] [employer]er: Pankaj Cordoba MD Hematocrit (Bld) [Volume fraction] 35.2 % Low 40.7-50.3 [facility] Comment on above: Performed By: #### O SMO #### [address] [address] [employer]er: Pankaj Cordoba MD Hemoglobin (Bld) [Mass/Vol] 12.3 g/dL Low 13.0-17.0 [facility] Comment on above: Performed By: #### O SMO #### [address] [address] [employer]er: Pankaj Cordoba MD Immature granulocytes/100 WBC (Bld) 0 % Normal 0 [facility] Comment on above: Performed By: #### O SMO #### [address] [address] [employer]er: Pankaj Cordoba MD Lymphocytes (Bld) [#/Vol] 1.68 10*3/uL Normal 1.10-3.70 [facility] Comment on above: Performed By: #### O SMO #### [address] [address] [employer]er: Pankaj Cordoba MD Lymphocytes/100 WBC (Bld) 23 % Low 24-43 [facility] Comment on above: Performed By: #### O SMO #### [address] [address] [employer]er: Pankaj Cordoba MD MCH (RBC) [Entitic mass] 30.9 pg Normal 25.2-33.5 [facility] Comment on above: Performed By: #### O SMO #### [address] [address] [employer] Mixer: Pankaj Cordoba MD MCHC (RBC) [Mass/Vol] 34.9 g/dL High 28.4-34.8 [facility] Comment on above: Performed By: #### O SMO #### [address] [address] [employer] Mixer: Pankaj Cordoba MD MCV (RBC) [Entitic vol] 88.4 fL Normal 82.6-102.9 [facility] Comment on above: Performed By: #### O SMO #### [address] [address] [employer]er: Pankaj Cordoba MD Monocytes (Bld) [#/Vol] 0.80 10*3/uL Normal 0.10-1.20 [facility] Comment on above: Performed By: #### O SMO #### [address] [address] [employer]er: Pankaj Cordoba MD Monocytes/100 WBC (Bld) 11 % Normal 3-12 [facility] Comment on above: Performed By: #### O SMO #### [address] [address] [employer]er: Pankaj Cordoba MD Neutrophil (Seg) 64 % Normal 36-65 [facility] Comment on above: Performed By: #### O SMO #### [address] [address] [employer] Mixer: Pankaj Cordoba MD NRBC Automated 0.0 per 100 WBC Normal 0.0 [facility] Comment on above: Performed By: #### O SMO #### [address] [address] [employer]phalt Mixer: Pankaj Cordoba MD Platelet Count See Reflexed IPF Result Normal 138-453 [facility] Comment on above: Performed By: #### O SMO #### [address] [address] [employer]phalt Mixer: Pankaj Cordoba MD Platelet, Fluoresc. 132 k/uL Low 138-453 [facility] Comment on above: Performed By: #### O SMO #### [address] [address] [employer]phalt Mixer: Pankaj Cordoba MD PLT, Immature Fract. 5.3 % Normal 1.1-10.3 [facility] Comment on above: Performed By: #### O SMO #### [address] [address] Asphalt Mixer: Pankaj Cordoba MD RBC (Bld) [#/Vol] 3.98 10*6/uL Low 4.21-5.77 [facility] Comment on above: Performed By: #### O SMO #### [address] [address] [employer]phalt Mixer: Pankaj Cordoba MD WBC (Bld) [#/Vol] 7.2 10*3/uL Normal 3.5-11.3 [facility] Comment on above: Performed By: #### O SMO #### [employer] [address] [place] [address] [employer] Mixer: Pankaj Cordoba MD Electrolyte Panelon 06-03-20 Anion gap [Moles/Vol] 14 mmol/L 9 - 16 mmol/L [facility] Chloride [Moles/Vol] 86 mmol/L Low 98 - 10 7 mmol/L [facility] CO2 [Moles/Vol] 17 mmol/L Low 20 - 31 mmol/L [facility] Interpretation and review of laboratory results Abnormal [facility] Potassium [Moles/Vol] 4.4 mmol/L 3.7 - 5.3 mmol/L [facility] Comment on above: Specimen hemolysis h as exceeded the interference as defined by Sindy. Value may be falsely increased. Suggest recollection if clinically indicated. Sodium [Moles/Vol] 117 mmol/L Critically low 136 - 1 45 mmol/L [facility] Anion gap [Moles/Vol] 12 mmol/L 9 - 16 mmol/L [facility] Chloride [Moles/Vol] 89 mmol/L Low 98 - 10 7 mmol/L [facility] CO2 [Moles/Vol] 19 mmol/L Low 20 - 31 mmol/L [facility] Interpretation and review of laboratory results Abnormal [facility] Potassium [Moles/Vol] 4.5 mmol/L 3.7 - 5.3 mmol/L [facility] Comment on above: Specimen hemolysis h as exceeded the interference as defined by Sindy. Value may be falsely increased. Suggest recollection if clinically indicated. Sodium [Moles/Vol] 120 mmol/L Low 136 - 145 mmol/L [facility] Electrolyteson 06-03-2025 Anion gap [Moles/Vol] 14 mmol/L Normal 9-16 [facility] Comment on above: Performed By: #### L YTE ####[employer] [place], [place] [phone] Director: Pankaj Cordoba MD Chloride [Moles/Vol] 86 mmol/L Low 98-107 [facility] Comment on above: Performed By: #### L YTE ####[facility] [address] [place], [place] [phone] Director: Pankaj Cordoba MD CO2 [Moles/Vol] 17 mmol/L Low 20-31 [facility] Comment on above: Performed By: #### L YTE ####[facility] [address] [place], [place] [phone] Director: Pankaj Cordoba MD Potassium [Moles/Vol] 4.4 mmol/L Normal 3.7-5.3 [facility] Comment on above: Result Comment: Spec imen hemolysis has exceeded the interference as defined by Sindy. Value may be falsely increased. Suggest recollection if clinically indicated. Performed By: #### L YTE ####[facility] [address]cc[address] [place], [place] [phone] Director: Pankaj Cordoba MD Sodium [Moles/Vol] 117 mmol/L Critically low 136-145 [facility] Comment on above: Performed By: #### L YTE ####[facility] Y[address]smdmxuaxs8427 [place], [place] [phone] Director: Pankaj Cordoba MD Anion gap [Moles/Vol] 12 mmol/L Normal 9-16 [facility] Comment on above: Performed By: #### L YTE ####[facility] [address]bpkjjdjnh230[address] [place], [place] [phone] Director: Pankaj Cordoba MD Chloride [Moles/Vol] 89 mmol/L Low 98-107 [facility] Comment on above: Performed By: #### L YTE ####[facility] [address]zqnnqx7[address] [place], [place] [phone] Director: Pankaj Cordoba MD CO2 [Moles/Vol] 19 mmol/L Low 20-31 [facility] Comment on above: Performed By: #### L YTE ####[employer] [address] [place], [place] [phone] Lab Director: Pankaj Cordoba MD Potassium [Moles/Vol] 4.5 mmol/L Normal 3.7-5.3 [facility] Comment on above: Result Comment: Spec imen hemolysis has exceeded the interference as defined by Sindy. Value may be falsely increased. Suggest recollection if clinically indicated. Performed By: #### L YTE ####[facility] [address] [place] [address] Lab Director: Pankaj Cordoba MD Sodium [Moles/Vol] 120 mmol/L Low 136-145 [facility] Comment on above: Performed By: #### L YTE ####[employer] [address]2338 [place] [address] Lab Director: Pankaj Cordoba MD Glucose,Whole Bloodon 2024 Glucose [Mass/Vol] 92 mg/dL Normal 75-110 [facility] Glucose [Mass/Vol] 98 mg/dL Normal 75-110 [facility] Glucose [Mass/Vol] 124 mg/dL High 75-110 [facility] Glucose [Mass/Vol] 117 mg/dL High 75-110 [facility] Osmolalityon 06-03-2025 Interpretation and review of laboratory results Abnormal [facility] [employer] Osmolality [Osmolality] 251 mosm/kg Low [facility] Osmolality [Osmolality] 251 mosm/kg Low 275-295 [facility] Comment on above: Performed By: #### O SMO #### [employer] [address] [phone] As[employer] Mixer: Pankaj Cordoba MD POC Glucose Fingerstickon Glucose [Mass/Vol] 92 mg/dL 75 - 110 mg/dL [facility] Glucose [Mass/Vol] 98 mg/dL 75 - 110 mg/dL [facility] Glucose [Mass/Vol] 124 mg/dL High 75 - 110 mg/dL [facility] Interpretation and review of laboratory results Abnormal [facility] Glucose [Mass/Vol] 117 mg/dL High 75 - 110 mg/dL [facility] Interpretation and review of laboratory results Abnormal [facility] PREVIOUS SPECIMENon 06-03-20 25 [facility] PTon 06-03-2025 INR Coag (PPP) [Relative time] 1.7 {INR} Normal [facility] Comment on above: Result Comment: Therapeutic Range: Moderate Anticoagulant Intensity: INR = 2.0-3.0 High Anticoagulant Intensity: INR = 2.5-3.5 Performed By: #### O SMO #### [employer] [address] [place], [place] [phone] [employer] Mixer: Pankaj Cordoba MD PT Coag (PPP) [Time] 20.3 s High 11.7-14.9 [facility] Comment on above: Performed By: #### O SMO #### [facility] [facility] [phone] Asphalt Mixer: Pankaj Cordoba MD Protime-INRon 06-03-2025 INR Coag (PPP) [Relative time] 1.7 {INR} [facility] Comment on above: Therapeutic Range: Moderate Anticoagulant Intensity: INR = 2.0-3.0 High Anticoagulant Intensity: INR = 2.5-3.5 Interpretation and review of laboratory results Abnormal [facility] PT Coag (PPP) [Time] 20.3 s High [facility] Basic Metab w/rfx MGon 06-02 Anion gap [Moles/Vol] 13 mmol/L Normal 9-16 [facility] Comment on above: Performed By: #### B MPX, PT, CDP ####[employer] [place], [place] [phone] Director: Pankaj Cordoba MD Calcium [Mass/Vol] 9.1 mg/dL Normal 8.6-10.4 [facility] Comment on above: Performed By: #### B MPX, PT, CDP ####[facility] [address] [place], [place] [phone] Director: Pankaj Cordoba MD Chloride [Moles/Vol] 96 mmol/L Low 98-107 [facility] Comment on above: Performed By: #### B MPX, PT, CDP ####[facility] [address] [place], [place] [phone] Director: Pankaj Cordoba MD CO2 [Moles/Vol] 20 mmol/L Normal 20-31 [facility] Comment on above: Performed By: #### B MPX, PT, CDP ####[facility] [address] [place], [place] [phone] Director: Pankaj Cordoba MD Creatinine [Mass/Vol] 0.8 mg/dL Normal 0.7-1.2 [facility] Comment on above: Performed By: #### B MPX, PT, CDP ####[facility] [address] [place], [place] [phone] Director: Pankaj Cordoba MD GFR/1.73 sq M.predicted among non-blacks MDRD (S/P/Bld) [Vol rate/Area] 88 mL/min/{1.73_m2} Normal >60 [facility] Comment on above: Result Comment: These results [...] By: #### B MPX, PT, CDP ####[facility] [address] [place] [address] Lab Director: Pankaj Cordoba MD Glucose [Mass/Vol] 117 mg/dL High 74-99 [facility] Comment on above: Performed By: #### B MPX, PT, CDP ####[facility] [address]kw[address] [place] [address] Lab Director: Pankaj Cordoba MD Potassium [Moles/Vol] 4.7 mmol/L Normal 3.7-5.3 [facility] Comment on above: Performed By: #### B MPX, PT, CDP ####[facility] [address]kh[address] [place] [address] Lab Director: Pankaj Cordoba MD Sodium [Moles/Vol] 129 mmol/L Low 136-145 [facility] Comment on above: Performed By: #### B MPX, PT, CDP ####[facility] [address]pecb[address] [place] [address] Lab Director: Pankaj Cordoba MD Urea nitrogen [Mass/Vol] 16 mg/dL Normal 8-23 [facility] Comment on above: Performed By: #### B MPX, PT, CDP ####[facility] [address]cjtmp[address] [place] [address] Lab Director: Pankaj Cordoba MD Basic Metabolic Panel w/ Ref maura to MGon 06-02-2025 Anion gap [Moles/Vol] 13 mmol/L 9 - 16 mmol/L [facility] Calcium [Mass/Vol] 9.1 mg/dL 8.6 - 10. 4 mg/dL [facility] Chloride [Moles/Vol] 96 mmol/L Low 98 - 10 7 mmol/L [facility] CO2 [Moles/Vol] 20 mmol/L 20 - 31 mmol/L [facility] Creatinine [Mass/Vol] 0.8 mg/dL 0.7 - 1.2 mg/dL [facility] Est, Glom Filt Rate 88 - PINF [facility] Comment on above: These results are [...] 117 mg/dL High 74 - 99 mg/dL [facility] Interpretation and review of laboratory results Abnormal [facility] Potassium [Moles/Vol] 4.7 mmol/L 3.7 - 5.3 mmol/L [facility] Sodium [Moles/Vol] 129 mmol/L Low 136 - 145 mmol/L [facility] Urea nitrogen [Mass/Vol] 16 mg/dL 8 - 23 mg/dL [facility] CBC with Auto Differentialon 06-02-2025 Basophils (Bld) [#/Vol] 0.06 10*3/uL [facility] Basophils/100 WBC (Bld) 1 % 0 - 2 % [facility] Eosinophils (Bld) [#/Vol] 0.08 10*3/uL [facility] Eosinophils/100 WBC (Bld) 1 % 1 - 4 % [facility] Erythrocyte distribution width (RBC) [Ratio] 13.2 % 11.8 - 14.4 % [facility] Hematocrit (Bld) [Volume fraction] 36.5 % Low 40.7 - 50.3 % [facility] Hemoglobin (Bld) [Mass/Vol] 12.3 g/dL Low 13.0 - 17.0 g/dL [facility] Immature granulocytes (Bld) [#/Vol] [facility] Immature granulocytes/100 WBC (Bld) 0 % 0 [facility] Interpretation and review of laboratory results Abnormal [facility] Lymphocytes/100 WBC (Bld) 25 % 24 - 43 % [facility] Lymphocytes/100 WBC (Bld) 1.93 % [facility] MCH (RBC) [Entitic mass] 30.7 pg 25.2 - 33.5 pg [facility] MCHC (RBC) [Mass/Vol] 33.7 g/dL 28.4 - 34.8 g/dL [facility] MCV (RBC) [Entitic vol] 91 fL 82.6 - 102.9 fL [facility] Monocytes/100 WBC (Bld) 11 % 3 - 12 % [facility] Monocytes/100 WBC (Bld) 0.84 % [facility] Neutrophils/100 WBC (Bld) 62 % 36 - 65 % [facility] Nucleated RBC/100 WBC (Bld) [Ratio] 0 % 0.0 per 100 WBC [facility] Platelet mean volume (Bld) [Entitic vol] 11.3 fL 8.1 - 13.5 fL [facility] Platelets (Bld) [#/Vol] 147 10*3/uL [facility] RBC (Bld) [#/Vol] 4.01 10*6/uL Low 4.21 - 5.7 7 m/uL [facility] Segmented neutrophils/100 WBC (Bld) 4.88 % [facility] WBC other (Bld) [#/Vol] 7.8 [facility] CBC with Diffon 06-02-2025 Abs. Basophil 0.06 k/uL Normal 0.00-0.20 [facility] Comment on above: Performed By: #### B MPX, PT, CDP ####[facility] [address] [place] [address] Lab Director: Pankaj Cordoba MD Abs.Imm.Granulocyte <0.03 Normal 0.00-0.30 [facility] Comment on above: Performed By: #### B MPX, PT, CDP ####[facility] [address] [place] [phone] lab Director: Panakj Cordoba MD Abs.Neutrophil (Seg) 4.88 k/uL Normal 1.50-8.10 [facility] Comment on above: Performed By: #### B MPX, PT, CDP ####[facility] [address]xp[address]reg78[address] [place] [address] Lab Director: Pankaj Cordoba MD Basophils/100 WBC (Bld) 1 % Normal 0-2 [facility] Comment on above: Performed By: #### B MPX, PT, CDP ####[facility] [address] [place] [address] Lab Director: Pankaj Cordoba MD Eosinophils (Bld) [#/Vol] 0.08 10*3/uL Normal 0.00-0.44 [facility] Comment on above: Performed By: #### B MPX, PT, CDP ####[facility] [address] [place] [phone])[phone] Director: Pankaj Cordoba MD Eosinophils/100 WBC (Bld) 1 % Normal 1-4 [facility] Comment on above: Performed By: #### B MPX, PT, CDP ####[facility] [address] [place] [phone])[phone] Director: Pankaj Cordoba MD Erythrocyte distribution width (RBC) [Ratio] 13.2 % Normal 11.8-14.4 [facility] Comment on above: Performed By: #### B MPX, PT, CDP ####[facility] [address] [place] [address] Lab Director: Pankaj Cordoba MD Hematocrit (Bld) [Volume fraction] 36.5 % Low 40.7-50.3 [facility] Comment on above: Performed By: #### B MPX, PT, CDP ####[facility] [address] [place] [address])[phone] Director: Pankaj Cordoba MD Hemoglobin (Bld) [Mass/Vol] 12.3 g/dL Low 13.0-17.0 [facility] Comment on above: Performed By: #### B MPX, PT, CDP ####[facility] [address]bc[address] [place] [address] Lab Director: Pankaj Cordoba MD Immature granulocytes/100 WBC (Bld) 0 % Normal 0 [facility] Comment on above: Performed By: #### B MPX, PT, CDP ####[facility] [address] [place] [address] Lab Director: Pankaj Cordoba MD Lymphocytes (Bld) [#/Vol] 1.93 10*3/uL Normal 1.10-3.70 [facility] Comment on above: Performed By: #### B MPX, PT, CDP ####[address] [address] Lab Director: Pankaj Cordoba MD Lymphocytes/100 WBC (Bld) 25 % Normal 24-43 [facility] Comment on above: Performed By: #### B MPX, PT, CDP ####[facility] [address] [place] [address] [phone] Director: Pankaj Cordoba MD MCH (RBC) [Entitic mass] 30.7 pg Normal 25.2-33.5 [facility] Comment on above: Performed By: #### B MPX, PT, CDP ####[facility] [address] [place] [address] Lab Director: Pankaj Cordoba MD MCHC (RBC) [Mass/Vol] 33.7 g/dL Normal 28.4-34.8 [facility] Comment on above: Performed By: #### B MPX, PT, CDP ####[facility] [address] [place] [address] [phone] Director: Pankaj Cordoba MD MCV (RBC) [Entitic vol] 91.0 fL Normal 82.6-102.9 [facility] Comment on above: Performed By: #### B MPX, PT, CDP ####[facility] [address] [place] [address] [phone] Director: Pankaj Cordoba MD Monocytes (Bld) [#/Vol] 0.84 10*3/uL Normal 0.10-1.20 [facility] Comment on above: Performed By: #### B MPX, PT, CDP ####[facility] [address] [place], [place] [phone] Director: Pankaj Cordoba MD Monocytes/100 WBC (Bld) 11 % Normal 3-12 [facility] Comment on above: Performed By: #### B MPX, PT, CDP ####[facility] [address]ft[address] [place] [address] Lab Director: Pankaj Cordoba MD Neutrophil (Seg) 62 % Normal 36-65 [facility] Comment on above: Performed By: #### B MPX, PT, CDP ####[facility] [address] [place] [address] [phone] Director: Pankaj Cordoba MD NRBC Automated 0.0 per 100 WBC Normal 0.0 [facility] Comment on above: Performed By: #### B MPX, PT, CDP ####[facility] [address] [place], [place] [phone] Director: Pankaj Cordoba MD Platelet mean volume (Bld) [Entitic vol] 11.3 fL Normal 8.1-13.5 [facility] Comment on above: Performed By: #### B MPX, PT, CDP ####[facility] [address]pc[address] [place], [place] [phone] Director: Pankaj Cordoba MD Platelets (Bld) [#/Vol] 147 10*3/uL Normal 138-453 [facility] Comment on above: Performed By: #### B MPX, PT, CDP ####[facility] [address] [place] [address] Lab Director: Pankaj Cordoba MD RBC (Bld) [#/Vol] 4.01 10*6/uL Low 4.21-5.77 [facility] Comment on above: Performed By: #### B MPX, PT, CDP ####[facility] [address] [place] [address] lab Director: Pankaj Cordoba MD WBC (Bld) [#/Vol] 7.8 10*3/uL Normal 3.5-11.3 [facility] Comment on above: Performed By: #### B MPX, PT, CDP ####[facility] [address]eor[address] [place], [place] [phone] lab Director: Pankaj Cordoba MD Glucose,Whole Bloodon 2024 Glucose [Mass/Vol] 127 mg/dL High 75-110 [facility] Glucose [Mass/Vol] 109 mg/dL Normal 75-110 [facility] Glucose [Mass/Vol] 110 mg/dL Normal 75-110 [facility] POC Glucose Fingerstickon Glucose [Mass/Vol] 127 mg/dL High 75 - 110 mg/dL [facility] Interpretation and review of laboratory results Abnormal [facility] Glucose [Mass/Vol] 109 mg/dL 75 - 110 mg/dL [facility] Glucose [Mass/Vol] 110 mg/dL 75 - 110 mg/dL [facility] PTon 06-02-2025 INR Coag (PPP) [Relative time] 1.9 {INR} Normal [facility] Comment on above: Result Comment: Therapeutic Range: Moderate Anticoagulant Intensity: INR = 2.0-3.0 High Anticoagulant Intensity: INR = 2.5-3.5 Performed By: #### B MPX, PT, CDP ####[facility] [address]adnrk[address] [place], [place] [phone] lab Director: Pankaj Cordoba MD PT Coag (PPP) [Time] 22.2 s High 11.7-14.9 [facility] Comment on above: Performed By: #### B MPX, PT, CDP ####[facility] [address] [place] [phone] lab Director: Pankaj Cordoba MD Protime-INRon 06-02-2025 INR Coag (PPP) [Relative time] 1.9 {INR} [facility] [employer] Comment on above: Therapeutic Range: Moderate Anticoagulant Intensity: INR = 2.0-3.0 High Anticoagulant Intensity: INR = 2.5-3.5 Interpretation and review of laboratory results Abnormal [facility] [employer] PT Coag (PPP) [Time] 22.2 s High [facility] [employer] [facility] [employer] CHEMISTRYOrdered By: Christine Stevens on 05-20-2025 Albumin [...] [Mass fraction] 5.6 % Normal <=5.9% [facility] ChemAutoSS TtdH2nov 05-20-2025 HbA1c (Bld) [Mass fraction] 5.6 % Normal <=5.9 [facility] Comment on above: Performed By: #### 7 [id number] #### [facility] [address] [place] [address] Lipid Panelon 05-20-2025 Cholesterol [Mass/Vol] 150 mg/dL Normal 120-200 [facility] Comment on above: Performed By: #### 2 [id number] #### [facility] [address] [place] [address] Cholesterol in HDL [Mass/Vol] 57 mg/dL Invalid Interpretation Code [facility] Comment on above: Result Comment: '>= 60 LOW RISK' '<= 40 HIGH RISK' Performed By: #### 2 [id number] #### [facility] [address] [place] [address] Cholesterol in LDL [Mass/Vol] 77 mg/dL Normal <=129 [facility] Comment on above: Performed By: #### 2 [id number] #### [facility] [address] [place] [address] Cholesterol in VLDL [Mass/Vol] 11 mg/dL Normal 7-40 [facility] Comment on above: Performed By: #### 2 [id number] #### [facility] [address] [place] [address] Triglyceride [Mass/Vol] 53 mg/dL Normal <=149 [facility] Comment on above: Performed By: #### 2 [id number] #### [facility] [address] [place] [address] U MA/Cr Ratioon 05-20-2025 Microalb/Cr Ratio NOT CALCULATED Invalid Interpretation Code .0-30.0 [facility] Comment on above: Result Comment: 30-3 00 mg/g Cr indicates an increased risk for diabetic nephropathy. >300 mg/g Cr is consistent with clinical nephropathy. Performed By: #### 1 [id number] #### [facility] [address] [place] [address] U Creatinine 62.9 mg/dL Invalid Interpretation Code [facility] Comment on above: Performed By: #### 1 [id number] #### [facility] [address] [place] [address] U Microalb <0.7 Normal 0.0-1.9 [facility] Comment on above: Performed By: #### 1 [id number] #### [facility] [address] [place] [address] Ambulatory Visit Summaryon 0 05-09-2025 Ambulatory Visit [...] Appointments Tuesday 8:20 AM EDT With: Where: [address] [place] [address]- Tuesday 10:40 AM EDT With: YANIQUE MCNEILL CNP Where: [address] [place] [address]- Tuesday2025 8:00 AM EDT With: Where: [address] [place] [address]- You Need to Complete the Following HgbA1c, [...] By Mouth Every day Pickup at [facility] Unchanged Turmeric (Turmeric 500 mg oral capsule) 1 Capsules By Mouth Every day as needed for Prophylaxis Unchanged ubiquinone (CoQ10) See instructions Unchanged warfarin (warfarin 5 mg Tab) 1 Tablets By Mouth Every day Pharmacy Information [facility]: [address] [facility] ANDERSON Cristobal [phone] Allergies No Known Medication Allergies Problems Ongoing [...] in a (more content not included)... Normal [facility] Family Medicine Office/Clini c Noteon 05-09-2025 Family [...] requests, he will have completed at [facility] prior to next PCP visit. Colonoscopy screenings [...] Voices understandin (more content not included)... Normal [facility] Comment on above: Result Comment: [...] Follow-Up Appointments 2024 8:00 AM EDT Where: [place] [address]- Medications What How Much When Instructions Unchanged [...] for choosing us for your care. Normal [facility] BMPon 02-05-2025 Anion gap [Moles/Vol] 8 mmol/L Normal 6-16 [facility] Comment on above: Performed By: #### 2 [id number] #### [facility] [address] [place] [address] Calcium [Mass/Vol] 8.8 mg/dL Low 8.9-11.1 [facility] Comment on above: Performed By: #### 2 [id number] #### [facility] [address] [place] [address] Chloride [Moles/Vol] 99 mmol/L Low 101-111 [facility] Comment on above: Performed By: #### 2 [id number] #### [facility] [address] [place] [address] CO2 [Moles/Vol] 28 mmol/L Normal 21-31 [facility] Comment on above: Performed By: #### 2 [id number] #### [facility] [address] [place] [address] Creatinine [Mass/Vol] 1.0 mg/dL Normal 0.5-1.3 [facility] Comment on above: Performed By: #### 2 [id number] #### [facility] [address] [place] [address] Glucose [Mass/Vol] 104 mg/dL Normal 55-199 [facility] Comment on above: Performed By: #### 2 [id number] #### [facility] [address] [place] [address] Potassium [Moles/Vol] 4.2 mmol/L Normal 3.5-5.3 [facility] Comment on above: Performed By: #### 2 [id number] #### [facility] [address] [place] [address] Sodium [Moles/Vol] 131 mmol/L Low 135-145 [facility] Comment on above: Performed By: #### 2 [id number] #### [facility] [address] [place] [address] Urea nitrogen [Mass/Vol] 13 mg/dL Normal 5-21 [facility] Comment on above: Performed By: #### 2 [id number] #### [facility] [address] [place] [address] Urea nitrogen/Creatinine [Mass ratio] 13 No Units Normal 10-20 [facility] Comment on above: Performed By: #### 2 [id number] #### [facility] [address] [place] [address] CHEMISTRYOrdered By: SYSTEM SYSTEM on 02-05-2025 Anion [...] reports as effective. Ongoing follow-up with a qa specialist is planned for later in February. The [...] confirmation of an upcoming appointment with a qa specialist later in February to further assess their [...] mcg(0.025 mg) (more content not included)... Normal [facility] Comment on above: Result Comment: Elec tronically Signed By: Adam COHN, Edwin Lopez.br\Date and Time Signed: 02/05/25 13:47 EDT eGFRon 02-05-2025 eGFR 75 mL/min/1.73 m2 Normal >=59 [facility] Comment on above: Performed By: #### 1 [id number] #### [facility] [address] [place] [address] Ambulatory Visit Summaryon 0 01-24-2025 Ambulatory Visit [...] PM EDT With: Edwin Garcia MD Where: [address] [id number]- 2024 8:00 AM EDT With: Where: [address] [address]- Medications What How Much When Instructions Changed sodium chloride (Sodium Chloride 1 g oral tablet) See instructions 1 gram orally BID Pickup at [facility] Unchanged atenolol (atenolol 25 mg [...] if questions or concerns Pharmacy Information [facility]: [address] [facility] [place] Cristobal [phone] Allergies No Known Medication Allergies Problems Ongoing [...] in adult (more content not included)... Normal [facility] BMPon 01-24-2025 Anion gap [Moles/Vol] 9 mmol/L Normal 6-16 [facility] Comment on above: Performed By: #### 2 [id number] #### [facility] [address] [place] [address] Calcium [Mass/Vol] 8.8 mg/dL Low 8.9-11.1 [facility] Comment on above: Performed By: #### 2 [id number] #### [facility] [address] [place] [address] Chloride [Moles/Vol] 98 mmol/L Low 101-111 [facility] Comment on above: Performed By: #### 2 [id number] #### [facility] [address] [place] [address] CO2 [Moles/Vol] 27 mmol/L Normal 21-31 [facility] Comment on above: Performed By: #### 2 [id number] #### [facility] [address] [place] [address] Creatinine [Mass/Vol] 1.0 mg/dL Normal 0.5-1.3 [facility] Comment on above: Performed By: #### 2 [id number] #### [facility] [address] [place] [address] Glucose [Mass/Vol] 114 mg/dL Normal 55-199 [facility] Comment on above: Performed By: #### 2 246195 #### [facility] [address] [place] [address] Potassium [Moles/Vol] 4.5 mmol/L Normal 3.5-5.3 [facility] Comment on above: Performed By: #### 2 [id number] #### [facility] [address] [place] [address] Sodium [Moles/Vol] 129 mmol/L Low 135-145 [facility] Comment on above: Performed By: #### 2 [id number] #### [facility] [address] [place] [address] Urea nitrogen [Mass/Vol] 12 mg/dL Normal 5-21 [facility] Comment on above: Performed By: #### 2 532278 #### [facility] [address] [place] [address] Urea nitrogen/Creatinine [Mass ratio] 12 No Units Normal 10-20 [facility] Comment on above: Performed By: #### 2 [id number] #### [facility] [address] [place] [address] CHEMISTRYOrdered By: SYSTEM SYSTEM on 01-24-2025 Anion [...] wear the damaged aids, requiring a future ladder operator visit to resolve this issue. Moreover, the patient is under management for hypothyroidism, consistently taking his prescribed thyroid medication as directed. He denies experiencing notable symptoms of hypothyroidism, such as coldness or heightened fatigue. His reported increased daytime sleep appears to be associated more with lifestyle factors than with hypothyroidism. - Monitoring and follow-up for hyponatremia through scheduled nephrology appointment. - Anticipated ladder operator visit for hearing aid assessment and repair [...] The patient will follow up with a qa specialist for further evaluation and management of hyponatremia. We will adjust the sodium supplementation based on the upcoming lab results. Ordered: Basic Metabolic Panel Lab Specimen Collect 12920 TSH With T4fr Reflex 5. 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 An appointment with an appropriate ladder operator has been planned to assess and replace [...] ensure therap (more content not included)... Normal [facility] Comment on above: Result Comment: Elec tronically Signed By: Adam COHN, Edwin Lopez.br\Date and Time Signed: 01/24/25 14:16 EDT TSH With T4fr Reflexon 01-24 TSH Qn 2.69 m[IU]/L Normal 0.34-5.60 [facility] Comment on above: Performed By: #### 1 [id number] #### [facility] [address] [place] [address] eGFRon 01-24-2025 eGFR 75 mL/min/1.73 m2 Normal >=59 [facility] Comment on above: Performed By: #### 1 [id number] #### [facility] [address] [place] [address] Population [facility] 01-15-20 [facility] Case Information Case Priority: None Programs: -- Referral Source: Make Up Artist Referral Reason: Care coordination Case Type: Transition [...] Case discussion Contact Type: Patient Contact Name: DRAIEL ZABALA Notes: TCM#5- Final tcm, see note. [...] tcm note. Created By: Alec Rodrigez Normal [facility] BMPon 01-09-2025 Anion gap [Moles/Vol] 9 mmol/L Normal 6-16 [facility] Comment on above: Performed By: #### 2 [id number] #### [facility] [address] [place] [address] Calcium [Mass/Vol] 9.0 mg/dL Normal 8.9-11.1 [facility] Comment on above: Performed By: #### 2 000951 #### [facility] [address] [place] [address] Chloride [Moles/Vol] 93 mmol/L Low 101-111 [facility] Comment on above: Performed By: #### 2 [id number] #### [facility] [address] [place] [address] CO2 [Moles/Vol] 27 mmol/L Normal 21-31 [facility] Comment on above: Performed By: #### 2 [id number] #### [facility] [address] [place] [address] Creatinine [Mass/Vol] 0.8 mg/dL Normal 0.5-1.3 [facility] Comment on above: Performed By: #### 2 738491 #### [facility] [address] [place] [address] Glucose [Mass/Vol] 110 mg/dL Normal 55-199 [facility] Comment on above: Performed By: #### 2 629606 #### [facility] [address] [place] [address] Potassium [Moles/Vol] 4.1 mmol/L Normal 3.5-5.3 [facility] Comment on above: Performed By: #### 2 295493 #### [facility] [address] [place] [address] Sodium [Moles/Vol] 125 mmol/L Low 135-145 [facility] Comment on above: Performed By: #### 2 [id number] #### [facility] [address] [place] [address] Urea nitrogen [Mass/Vol] 12 mg/dL Normal 5-21 [facility] Comment on above: Performed By: #### 2 650586 #### [facility] [address] [place] [address] Urea nitrogen/Creatinine [Mass ratio] 15 No Units Normal 10-20 [facility] Comment on above: Performed By: #### 2 [id number] #### [facility] [address] [place] [address] CHEMISTRYOrdered By: SYSTEM SYSTEM on 01-09-2025 Anion [...] 01-09-2025 eGFR 88 mL/min/1.73 m2 Normal >=59 [facility] Comment on above: Performed By: #### 1 [id number] #### [facility] [address] [place] [address] [facility] 01-07-20 [facility] Case Information Case Priority: None Programs: -- Referral Source: Make Up Artist Referral Reason: Care coordination Case Type: Transition [...] changes as of 01-12, he'll be with [facility] Medicare. Patient has medication refill request, [...] tcm note. Created By: Alec Rodrigez Normal [facility] BMPon 12-31-2024 Anion gap [Moles/Vol] 10 mmol/L Normal 6-16 [facility] Comment on above: Performed By: #### 2 [id number] #### [facility] [address] [place] [address] Calcium [Mass/Vol] 9.3 mg/dL Normal 8.9-11.1 [facility] Comment on above: Performed By: #### 2 [id number] #### [facility] [address] [place] [address] Chloride [Moles/Vol] 95 mmol/L Low 101-111 [facility] Comment on above: Performed By: #### 2 468454 #### [facility] [address] [place] [address] CO2 [Moles/Vol] 27 mmol/L Normal 21-31 [facility] Comment on above: Performed By: #### 2 648631 #### [facility] [address] [place] [address] Creatinine [Mass/Vol] 0.8 mg/dL Normal 0.5-1.3 [facility] Comment on above: Performed By: #### 2 848406 #### [facility] [address] [place] [address] Glucose [Mass/Vol] 90 mg/dL Normal 55-199 [facility] Comment on above: Performed By: #### 2 252194 #### [facility] [address] [place] [address] Potassium [Moles/Vol] 4.3 mmol/L Normal 3.5-5.3 [facility] Comment on above: Performed By: #### 2 892651 #### [facility] [address] [place] [address] Sodium [Moles/Vol] 128 mmol/L Low 135-145 [facility] Comment on above: Performed By: #### 2 078736 #### [facility] [address] [place] [address] Urea nitrogen [Mass/Vol] 13 mg/dL Normal 5-21 [facility] Comment on above: Performed By: #### 2 260285 #### [facility] [address] [place] [address] Urea nitrogen/Creatinine [Mass ratio] 16 No Units Normal 10-20 [facility] Comment on above: Performed By: #### 2 [id number] #### [facility] [address] [place] [address] CHEMISTRYOrdered By: SYSTEM SYSTEM on 12-31-2024 Anion [...] 12-31-2024 eGFR 88 mL/min/1.73 m2 Normal >=59 [facility] Comment on above: Performed By: #### 1 [id number] #### [facility] [address] [place] [address] Family Medicine Office/Clini c Noteon 12-24-2024 Family [...] changes. We (more content not included)... Normal [facility] Comment on above: Result Comment: Elec tronically Signed By: Edwin Garcia MD\.br\Date and Time Signed: 12/24/24 13:31 [facility] 12-24-19 [facility] Case Information Case Priority: None Programs: -- Referral Source: Make Up Artist Referral Reason: Care coordination Case Type: Transition [...] tcm note. Created By: Alec Rodrigez Normal [facility] BMPon 12-18-2024 Anion gap [Moles/Vol] 10 mmol/L Normal 6-16 [facility] Comment on above: Performed By: #### 2 [id number] #### [facility] [address] [place] [address] Calcium [Mass/Vol] 9.1 mg/dL Normal 8.9-11.1 [facility] Comment on above: Performed By: #### 2 [id number] #### [facility] [address] [place] [address] Chloride [Moles/Vol] 98 mmol/L Low 101-111 [facility] Comment on above: Performed By: #### 2 825323 #### [facility] [address] [place] [address] CO2 [Moles/Vol] 27 mmol/L Normal 21-31 [facility] Comment on above: Performed By: #### 2 174893 #### [facility] [address] [place] [address] Creatinine [Mass/Vol] 0.9 mg/dL Normal 0.5-1.3 [facility] Comment on above: Performed By: #### 2 [id number] #### [facility] [address] [place] [address] Glucose [Mass/Vol] 113 mg/dL Normal 55-199 [facility] Comment on above: Performed By: #### 2 722167 #### [facility] [address] [place] [address] Potassium [Moles/Vol] 3.9 mmol/L Normal 3.5-5.3 [facility] Comment on above: Performed By: #### 2 184344 #### [facility] [address] [place] [address] Sodium [Moles/Vol] 131 mmol/L Low 135-145 [facility] Comment on above: Performed By: #### 2 673619 #### [facility] [address] [place] [address] Urea nitrogen [Mass/Vol] 10 mg/dL Normal 5-21 [facility] Comment on above: Performed By: #### 2 [id number] #### [facility] [address] [place] [address] Urea nitrogen/Creatinine [Mass ratio] 11 No Units Normal 10-20 [facility] Comment on above: Performed By: #### 2 [id number] #### [facility] [address] [place] [address] eGFRon 12-18-2024 eGFR 85 mL/min/1.73 m2 Normal >=59 [facility] Comment on above: Performed By: #### 1 [id number] #### [facility] [address] [place] [address] Family Medicine Office/Clini c Noteon 12-17-2024 Family Medicine Office/Clinic Note Family Medicine Office/Clinic Note Chief Complaint ER follow up Confusion and persistent fatigue post-discharge with a concern for recurrent hyponatremia HPI Staff Pt presents today for ER follow up. Hospital: [facility] Visit date:12/14/24 Symptoms the patient presented [...] with Nephrology. Ordered: Basic Metabolic Panel [facility] External Ambulatory Referral 2. 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 Ordered: Basic Metabolic Panel [facility] External Ambulatory Referral 3. Longstanding persistent atrial fibrillation (I48.11: Longstanding persistent atrial fibrillation) Maintain current management regime, evaluate rhythm control, and anticoagulation status during follow-up visits. Ordered: Basic Metabolic Panel [facility] External Ambulatory Referral 4. Hyponatremia (E87.1: Hypo-osmolality and hyponatremia) Continue monitoring sodium levels closely, with recommended nephrology review for stabilization strategy. No significant lifestyle factors contributing to sodium imbalance noted. Ordered: Basic Metabolic Panel [facility] External Ambulatory Referral 5. Hypothyroid (E03.9: Hypothyroidism, unspecified) Monitor thyroid levels to ensure therapeutic levels are maintained, adjust medications if indicated by lab abnormalities. Ordered: Basic Metabolic Panel [facility] External Ambulatory Referral 6. Nonsmoker (Z78.9: Other specified health status) Please continue to not smoke. Ordered: Basic Metabolic Panel Orders: fluticasone nasal, See Instructions, 48 mL, Refill(s) 1, USE 1 SPRAY IN EACH NOSTRIL TWICE A DAY, [id number], 178, cm, 08/28/24 14:50:00 EDT, Height/Length Dosing, 82.2, kg, 08/28/24 14:50:00 EDT, Weight Dosing sodium chloride, See Instructions, 1 gram orally daily, # 90 tab(s), Refills(s) 0, Pharmacy: [facility], 178.6, cm, 12/17/24 15:05:00 EST, Height/Length Dosing, 78.5, kg, 12/17/24 15: (more content not included)... Normal [facility] Comment on above: Result Comment: Elec tronically Signed By: Adam COHN, Edwin Cole\.br\Date and Time Signed: 12/17/24 15:29 [facility] 12-17-19 [facility] Case Information Case Priority: None Programs: -- Referral Source: Make Up Artist Referral Reason: Care coordination Case Type: Transition [...] Daily, 1 refills fluticasone Nasal 0.05 mg/inh [place], See Instructions, Self Directed gabapentin 300 mg [...] Care Plan Progress Note Admit Date: 12/14/24 [facility] Date of Discharge: 12/15/24 Follow-up appointment [...] cold wea (more content not included)... Normal [facility] Main OR Intraoperative Recor don 11-20-2024 Main OR Intraoperative Record Main OR Intraoperative Record IntraOp Document Type FT Summary Primary Physician: Axel Hernández DO Finalized Date/Time: 11/20/24 07:56:52 Pt. Name: DARIEL ZABALA/Sex: 1940 Male Med Rec #: [id number] Physician: Axel Hernández DO Financial #: [id number] Pt. Type: A Room/Bed: [facility] Admit/Disch: 11/19/24 09:28:12 - 11/19/24 14:30:00 [...] Chau Chowdhury Performed JULIETA Surgeon - Primary GROMMET WORKER/SA Time In 11/19/24 12:10:00 11/19/24 12:23:00 11/19/24 12:10:00 Time Out 11/19/24 12:37:00 11/19/24 12:35:00 11/19/24 12:37:00 Procedure CARPAL TUNNEL CARPAL TUNNEL CARPAL TUNNEL RELEASE(Left) RELEASE(Left) RELEASE(Left) Comments DR LOU SUPERVISING Last Modified By: Ambrocio Borges Terry T Sweene, Terry T 11/19/24 12:45:19 11/19/24 12:53:03 11/19/24 12:45:19 Entry 4 Entry 5 Case Attendee Ambrocio Borges Laura C Role Performed Top Lift Compresser - Primary Scrub - Primary Time In [...] CRNA, Given Participants Edgar DO, Giana Lobato GROMMET WORKER, Rudy Woodward Laura C, Ambrocio Borges Time [...] and tissue Entry 1 Skin Integrity Intact, [place], Warm, & Skin Abnormality No Dry Outcomes [...] Hand Ta (more content not included)... Normal [facility] Operative Reporton Operative Report Operative [...] PATIENT CONDITION: Satisfactory Deanna Weller Dictated: 11/19/2024 [id number] Transcribed: 11/19/2024 cc:Finn Medina [facility] Comment on above: Result Comment: Elec tronically Signed By: Axel Hernández DO\.br\Date and Time Signed: 11/20/24 16:36 EST BMPon 11-19-2024 Anion gap [Moles/Vol] 10 mmol/L Normal 6-16 [facility] Comment on above: Order Comment: To be drawn day of surgery. Performed By: #### 2 [id number] #### [facility] [address] [place] [address] Calcium [Mass/Vol] 9.2 mg/dL Normal 8.9-11.1 [facility] Comment on above: Order Comment: To be drawn day of surgery. Performed By: #### 2 [id number] #### [facility] [address] [place] [address] Chloride [Moles/Vol] 98 mmol/L Low 101-111 [facility] Comment on above: Order Comment: To be drawn day of surgery. Performed By: #### 2 [id number] #### [facility] [address] [place] [address] CO2 [Moles/Vol] 26 mmol/L Normal 21-31 [facility] Comment on above: Order Comment: To be drawn day of surgery. Performed By: #### 2 [id number] #### [facility] [address] [place] [address] Creatinine [Mass/Vol] 0.9 mg/dL Normal 0.5-1.3 [facility] Comment on above: Order Comment: To be drawn day of surgery. Performed By: #### 2 [id number] #### [facility] [address] [place] [address] Glucose [Mass/Vol] 77 mg/dL Normal 55-199 [facility] Comment on above: Order Comment: To be drawn day of surgery. Performed By: #### 2 [id number] #### [facility] [address] [place] [address] Potassium [Moles/Vol] 4.2 mmol/L Normal 3.5-5.3 [facility] Comment on above: Order Comment: To be drawn day of surgery. Performed By: #### 2 [id number] #### [facility] [address] [place] [address] Sodium [Moles/Vol] 130 mmol/L Low 135-145 [facility] Comment on above: Order Comment: To be drawn day of surgery. Performed By: #### 2 [id number] #### [facility] [address] [place] [address] Urea nitrogen [Mass/Vol] 8 mg/dL Normal 5-21 [facility] Comment on above: Order Comment: To be drawn day of surgery. Performed By: #### 2 [id number] #### [facility] [address] [place] [address] Urea nitrogen/Creatinine [Mass ratio] 9 No Units Low 10-20 [facility] Comment on above: Order Comment: To be drawn day of surgery. Performed By: #### 2 [id number] #### [facility] [address] [place] [address] CHEMISTRYOrdered By: Lab ROP User on 11-19-2024 Glucose [Mass/Vol] 78 mg/dL Normal 55 - 99 mg/dL [facility] POC Subsection Comment on above: Result Comment: Hilary danna Meter POC Username MAYA SOTELO Invalid Interpretation Code [facility] POC Subsection Sodium [Moles/Vol] [id number] mmol/L Invalid Interpretation Code [facility] POC Subsection Sodium [Moles/Vol] [id number] mmol/L Invalid Interpretation Code [facility] POC Subsection CHEMISTRYOrdered By: SYSTEM [...] s High 25.1 - 36.5 second(s) [facility] Auto Coag Comment on above: [...] same coagulation reagent and instrumentation as [facility]. Currently there are no coagulation studies available worldwide for children to 14 days, and no normal ranges. Heparin therapeutic range (represented by Anti-Factor Xa activity of 0.2 - 0.4 U/mL) corresponds to PTT of 56.6 - 109.0 sec. INR Coag (PPP) [Relative time] 1.11 {INR} Invalid Interpretation Code [facility] Auto Coag Comment on above: Interpretive Data: I NR results are specifically intended to assess patients stabilized on long-term Anticoagulation therapy suggested INR s Less Intensive Anticoagulation 2.0 3.0 Conventional Range 3.0 4.5 PT Coag (PPP) [Time] 12.5 s Normal 9.4 - 1 2.5 second(s) [facility] Auto Coag Comment on above: [...] same coagulation reagent and instrumentation as [facility]. Currently there are no coagulation studies available worldwide for children to 14 days, and no normal ranges. Capillary Glucose POCon Glucose [Mass/Vol] 78 mg/dL Normal 55-99 [facility] Comment on above: Result Comment: Hilary merinod Meter Performed By: #### 2 [id number] #### [facility] [address] [place] [address] Discharge Instructionson Discharge Instructions Discharge Instructions DARIEL [...] Clinic 2024 8:00 AM EDT With: Where: [facility] Medicine [address] [address]- New Follow Up Appointments after Discharge Follow Up with GORDO Weller When: 11/28/2024 01:00 PM EST Comments: Keep scheduled appointment. Call for any problems. Where: [address] [place] [phone]- Jumping Nuts (1) Medications What How Much When Instructions [...] fluticasone nasal (fluticasone Nasal 0.05 mg/ inh [place]) See instructions USE 1 SPRAY IN EACH [...] Allergies No Known Medication Allergies Education Materials [place] [place] [facility] CARPAL TUNNEL RELEASE INSTRUCTIONS [...] if the (more content not included)... Normal [facility] Comment on above: Result Comment: Elec tronically Signed By: Dirk KHAN, Maya Vanegas\.br\Date and Time Signed: 11/19/24 13:12 EST [facility] CAPILLARY GLUCOSE POCon 11-19-2024 Glucose [Mass/Vol] 78 mg/dL 55 - 99 mg/dL [facility] Comment on above: Cleaned Meter Original Ordering Provider: DO Axel RUIZISYFINESSE [facility] Main OR PACU I Recordon Main OR PACU I Record Main OR PACU I Record PACU Phase I Document Type FT Summary Primary Physician: Axel Hernández DO Finalized Date/Time: 11/19/24 13:24:52 Pt. Name: DARIEL ZABALA /Sex: 1940 Male Med Rec #: [id number] Physician: Axel Hernández DO Financial #: [id number] Pt. Type: A Room/Bed: Admit/Disch: 11/19/24 09:28:12 [...] 13:24 Vicki Sethi RN 11/19/24 13:24 Normal [facility] Main OR PACU II Recordon Main OR PACU II Record Main OR PACU II Record PACU Phase II Document Type FT Summary Primary Physician: Axel Hernández DO Finalized Date/Time: 11/19/24 14:27:02 Pt. Name: DARIEL ZABALA/Sex: 1940 Male Med Rec #: [id number] Physician: Axel Hernández DO Financial #: [id number] Pt. Type: A Room/Bed: [place] [address] Admit/Disch: 11/19/24 09:28:12 - Institution: Case Times [...] By: Maya Sotelo RN 11/19/24 14:27 Normal [facility] Main OR Preoperative Recordo n 11-19-2024 Main OR Preoperative Record Main OR Preoperative Record PreOp Document Type FT Summary Primary Physician: Axel Hernández DO Finalized Date/Time: 11/19/24 12:53:23 Pt. Name: DARIEL ZABALA/Sex: 1940 Male Med Rec #: [id number] Physician: Axel Hernández DO Financial #: [id number] Pt. Type: Room/Bed: [facility] Admit/Disch: 11/19/24 09:28:12 - Institution: Case [...] 11/19/24 12:53 Ambrocio Borges 11/19/24 12:53 Normal [facility] PT & PTTon 11-19-2024 aPTT Coag (PPP) [Time] 38.5 second(s) High 25.1-36.5 [facility] Comment on above: Result Comment: [...] same coagulation reagent and instrumentation as [facility]. Currently there are no coagulation studies available worldwide for children to 14 days, and no normal ranges. Heparin therapeutic range (represented by Anti-Factor Xa activity of 0.2 - 0.4 U/mL) corresponds to PTT of 56.6 - 109.0 sec. Performed By: #### 1 [id number] #### [facility] [address] [place] [address] INR Coag (PPP) [Relative time] 1.11 {INR} Invalid Interpretation Code [facility] Comment on above: Result Comment: INR results are specifically intended to assess patients stabilized on long-term Anticoagulation therapy suggested INR???s ???Less Intensive Anticoagulation??? 2.0 ??? 3.0 Conventional Range 3.0 ??? 4.5 Performed By: #### 1 [id number] #### [facility] [address] [place] [address] PT Coag (PPP) [Time] 12.5 second(s) Normal 9.4-12.5 [facility] Comment on above: Result Comment: [...] same coagulation reagent and instrumentation as [facility]. Currently there are no coagulation studies available worldwide for children to 14 days, and no normal ranges. Performed By: #### 1 [id number] #### [facility] [address] [place] [address] eGFRon 11-19-2024 eGFR 85 mL/min/1.73 m2 Normal >=59 [facility] Comment on above: Performed By: #### 1 [id number] ####[facility] [address] [facility] [place] [address] BMPon 11-12-2024 Anion gap [Moles/Vol] 7 mmol/L Normal 6-16 [facility] Comment on above: Performed By: #### 2 [id number] #### [facility] [address] [place] [address] Calcium [Mass/Vol] 8.8 mg/dL Low 8.9-11.1 [facility] Comment on above: Performed By: #### 2 [id number] #### [facility] [address] [place] [address] Chloride [Moles/Vol] 97 mmol/L Low 101-111 [facility] Comment on above: Performed By: #### 2 [id number] #### [facility] [address] [place] [address] CO2 [Moles/Vol] 28 mmol/L Normal 21-31 [facility] Comment on above: Performed By: #### 2 [id number] #### [facility] [address] [place] [address] Creatinine [Mass/Vol] 0.9 mg/dL Normal 0.5-1.3 [facility] Comment on above: Performed By: #### 2 [id number] #### [facility] [address] [place] [address] Glucose [Mass/Vol] 106 mg/dL Normal 55-199 [facility] Comment on above: Performed By: #### 2 [id number] #### [facility] [address] [place] [address] Potassium [Moles/Vol] 4.4 mmol/L Normal 3.5-5.3 [facility] Comment on above: Performed By: #### 2 [id number] #### [facility] [address] [place] [address] Sodium [Moles/Vol] 128 mmol/L Low 135-145 [facility] Comment on above: Performed By: #### 2 [id number] #### [facility] [address] [place] [address] Urea nitrogen [Mass/Vol] 12 mg/dL Normal 5-21 [facility] Comment on above: Performed By: #### 2 [id number] #### [facility] [address] [place] [address] Urea nitrogen/Creatinine [Mass ratio] 13 No Units Normal 10-20 [facility] Comment on above: Performed By: #### 2 [id number] #### [facility] [address] [place] [address] CHEMISTRYOrdered By: SYSTEM SYSTEM on 11-12-2024 Anion [...] [Mass fraction] 5.4 % Normal <=5.9% [facility] ChemAutoSS [id number] 11-12-2024 HbA1c (Bld) [Mass fraction] 5.4 % Normal <=5.9 [facility] Comment on above: Performed By: #### 7 [id number] #### [facility] [address] [place] [address] Inpatient Patient Summaryon 11-12-2024 Inpatient Patient Summary Inpatient Patient Summary [address] [address] [facility] Clinical Discharge Instructions PERSON INFORMATION Name: DARIEL ZABALA PHYSICIANS Admitting Physician: Axel Hernández DO Attending Physician: Axel Hernández DO PCP: Edwin Garcia MD Discharge Diagnosis: Carpal tunnel syndrome on left Comment: PATIENT EDUCATION INFORMATION Instructions: Edgar Gonzalez Carpal Tunnel Release Instructions (Custom) (CUSTOM) Medication Leaflets: Follow up: With: Address: When: Axel Hernández [address] [place] [address] Jumping Nuts (1) Comments: Keep scheduled appointment Type Location Start [facility] Surgery [facility] Surgical Services 11/19/2024 2:15 PM 11/19/2024 2:45 PM Confirmed Cardiology Follow Up (FT) [facility] 12/12/2024 10:15 AM 12/12/2024 10:30 AM Confirmed Medicare Wellness Subsequent [facility] FM Jackie 05/02/2025 8:00 AM 05/02/2025 9:00 [...] 1. fluticasone nasal (fluticasone Nasal 0.05 mg/inh [place]) USE 1 SPRAY IN EACH NOSTRIL TWICE [...] Tablets By Mouth every day. Comment: Normal [facility] Outpatient Surgery Discharge Instructionon 11-12-2024 Outpatient Surgery Discharge Instruction Outpatient Surgery Discharge Instruction [address] [address] Patient Discharge Instructions PERSON INFORMATION [...] Follow up: With: Address: When: Axel Hernández [address] [place] [address] Jumping Nuts (1) Comments: Keep scheduled appointment Type Location Start [facility] Surgery [facility] Surgical Services 11/19/2024 2:15 PM 11/19/2024 2:45 PM Confirmed Cardiology Follow Up (FT) FT.Cardiology Clinic 12/12/2024 10:15 AM 12/12/2024 10:30 AM Confirmed Medicare Wellness Subsequent [facility] [place] 05/02/2025 8:00 AM 05/02/2025 9:00 AM Confirmed [...] to serve you. Thank you for choosing [facility] HERE ARE THE MEDICATION CHANGES THAT [...] 1. fluticasone nasal (fluticasone Nasal 0.05 mg/inh [place]) USE 1 SPRAY IN EACH NOSTRIL TWICE [...] Mouth every day. PATIENT EDUCATION INFORMATION Instructions: [place] [place] [facility] CARPAL TUNNEL RELEASE INSTRUCTIONS Post-Operative Week One You will be in a soft dressing from mid palm to forearm. Please remove dressing two days after surgery. At that point, clean daily with peroxide or betadine and place daily fresh bandaids. Cover for showers with waterproof bandaid, op site occlusive dressing (more content not included)... Normal [facility] TSH With T4fr Reflexon 11-12 TSH Qn 2.17 m[IU]/L Normal 0.34-5.60 [facility] Comment on above: Performed By: #### 1 [id number] #### [facility] [address] [place] [address] eGFRon 11-12-2024 eGFR 85 mL/min/1.73 m2 Normal >=59 [facility] Comment on above: Performed By: #### 1 [id number] #### [facility] [address] [place] [address] Ambulatory Visit Summaryon 1 01-02-2024 Ambulatory Visit [...] Tab) fluticasone nasal (fluticasone Nasal 0.05 mg/inh [place]) gabapentin (gabapentin 300 mg Cap) glimepiride (glimepiride [...] Tuesday 9:20 AM EST With: Where: [address] [id number]- Tuesday 2:15 PM EST With: Where: [facility] Surgical Services Tuesday 10:15 AM EST With: Dixon Dubose PA-C Where: Cardiology Clinic 2024 8:00 AM EDT With: Where: [address] [address]- Medications What How Much When [...] fluticasone nasal (fluticasone Nasal 0.05 mg/ inh [place]) See instructions USE 1 SPRAY IN EACH [...] cardiovascular disease) (I25.10: Atherosclerotic heart disease of shinnecock coronary artery without angina pectoris) Denies CP. [...] Recent) 3074 (more content not included)... Normal [facility] Comment on above: Result Comment: Elec tronically Signed By: Adam COHN, Edwin Lopez.br\Date and Time Signed: 11/01/24 09:42 EST BMPon 10-30-2024 Anion gap [Moles/Vol] 11 mmol/L Normal 6-16 [facility] Comment on above: Performed By: #### 2 [id number] #### [facility] [address] [place] [address] Calcium [Mass/Vol] 9.0 mg/dL Normal 8.9-11.1 [facility] Comment on above: Performed By: #### 2 [id number] #### [facility] [address] [place] [address] Chloride [Moles/Vol] 96 mmol/L Low 101-111 [facility] Comment on above: Performed By: #### 2 [id number] #### [facility] [address] [place] [address] CO2 [Moles/Vol] 27 mmol/L Normal 21-31 [facility] Comment on above: Performed By: #### 2 [id number] #### [facility] [address] [place] [address] Creatinine [Mass/Vol] 0.9 mg/dL Normal 0.5-1.3 [facility] Comment on above: Performed By: #### 2 [id number] #### [facility] [address] [place] [address] Glucose [Mass/Vol] 87 mg/dL Normal 55-199 [facility] Comment on above: Performed By: #### 2 [id number] #### [facility] [address] [place] [address] Potassium [Moles/Vol] 4.7 mmol/L Normal 3.5-5.3 [facility] Comment on above: Performed By: #### 2 235697 #### [facility] [address] [place] [address] Sodium [Moles/Vol] 129 mmol/L Low 135-145 [facility] Comment on above: Performed By: #### 2 [id number] #### [facility] [address] [place] [address] Urea nitrogen [Mass/Vol] 15 mg/dL Normal 5-21 [facility] Comment on above: Performed By: #### 2 [id number] #### [facility] [address] [place] [address] Urea nitrogen/Creatinine [Mass ratio] 17 No Units Normal 10-20 [facility] Comment on above: Performed By: #### 2 [id number] #### [facility] [address] [place] [address] CBC w/ Auto Diffon 4 Basophils/100 WBC (Bld) 0.9 % Normal 0.0-2.0 [facility] Comment on above: Performed By: #### 2 [id number] #### [facility] [address] [place] [address] Basophils/Leukocytes Auto (Bld) [Pure # fraction] 0.0 E9/L Normal 0.0-0.2 [facility] Comment on above: Performed By: #### 2 [id number] #### [facility] [address] [place] [address] Eosinophils (Bld) [#/Vol] 0.2 E9/L Normal 0.0-0.5 [facility] Comment on above: Performed By: #### 2 427279 #### [facility] [address] [place] [address] Eosinophils/100 WBC (Bld) 3.6 % Normal 0.0-8.0 [facility] Comment on above: Performed By: #### 2 [id number] #### [facility] [address] [place] [address] Erythrocyte distribution width (RBC) [Ratio] 13.4 % Normal 10.9-14.2 [facility] Comment on above: Performed By: #### 2 [id number] #### [facility] [address] [place] [address] Hematocrit (Bld) [Volume fraction] 36.3 % Low 37.7-49.0 [facility] Comment on above: Performed By: #### 2 [id number] #### [facility] [address] [place] [address] Hemoglobin (Bld) [Mass/Vol] 12.8 g/dL Low 13.5-17.5 [facility] Comment on above: Performed By: #### 2 [id number] #### [facility] [address] [place] [address] Lymphocytes (Bld) [#/Vol] 1.5 E9/L Normal 1.0-4.0 [facility] Comment on above: Performed By: #### 2 194178 #### [facility] [address] [place] [address] Lymphocytes/100 WBC (Bld) 30.1 % Normal 14.0-50.0 [facility] Comment on above: Performed By: #### 2 235216 #### [facility] [address] [place] [address] MCH (RBC) [Entitic mass] 31.7 pg Normal 27.0-34.0 [facility] Comment on above: Performed By: #### 2 [id number] #### [facility] [address] [place] [address] MCHC (RBC) [Mass/Vol] 35.2 g/dL Normal 31.4-36.0 [facility] Comment on above: Performed By: #### 2 539878 #### [facility] [address] [place] [address] MCV (RBC) [Entitic vol] 90.1 fL Normal 80.0-100.0 [facility] Comment on above: Performed By: #### 2 [id number] #### [facility] [address] [place] [address] Monocytes (Bld) [#/Vol] 0.4 E9/L Normal 0.2-1.0 [facility] Comment on above: Performed By: #### 2 410248 #### [facility] [address] [place] [address] Neutrophils (Bld) [#/Vol] 2.9 E9/L Normal 2.0-7.5 [facility] Comment on above: Performed By: #### 2 141024 #### [facility] [address] [place] [address] Neutrophils/100 WBC (Bld) 56.9 % Normal 36.0-75.0 [facility] Comment on above: Performed By: #### 2 662994 #### [facility] [address] [place] [address] Platelet 175.0 E9/L Normal 150.0-500.0 [facility] Comment on above: Performed By: #### 2 401361 #### [facility] [address] [place] [address] Platelet mean volume (Bld) [Entitic vol] 9.1 fL Normal 6.4-10.8 [facility] Comment on above: Performed By: #### 2 [id number] #### [facility] [address] [place] [address] RBC (Bld) [#/Vol] 4.0 E12/L Low 4.3-5.9 [facility] Comment on above: Performed By: #### 2 [id number] #### [facility] [address] [place] [address] WBC corrected for nucl RBC Auto (Bld) [#/Vol] 5.1 E9/L Normal 4.0-11.0 [facility] Comment on above: Performed By: #### 2 [id number] #### [facility] [address] [place] [address] CHEMISTRYOrdered By: SYSTEM SYSTEM on 10-30-2024 Anion [...] 10-30-2024 eGFR 85 mL/min/1.73 m2 Normal >=59 [facility] Comment on above: Performed By: #### 1 [id number] #### [facility] [address] [place] [address] Family Medicine Office/Clini c Noteon 09-10-2024 Family [...] Daily, # 90 tab(s), Refills(s) 0, [facility], [facility], cm, 09/10/24 13:01:00 EDT, Height/Length [...] Daily, 1 refills fluticasone Nasal 0.05 mg/inh [place], See Instructions gabapentin 300 mg Cap, 300 [...] Diabetes mellitus (more content not included)... 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 male here [...] E&M of New Patient Low 30-44 Min 05408 2. ASCVD (arteriosclerotic cardiovascular disease) (I25.10: Atherosclerotic heart disease of [place] coronary artery without angina pectoris) The patient require surgery he will require cardiac clearance Ordered: E&M of New Patient Low 30-44 Min 90925 3. Longstanding persistent atrial fibrillation (I48.11: Longstanding persistent atrial fibrillation) Should patient require or opt for a robotic repair he will need to hold his anticoagulation for 5 days prior to the procedure Ordered: E&M of New Patient Low 30-44 Min [address]5632 Follow-up No qualifying data available Problem List/Past [...] Oral, Daily, 1 refills Flonase 0.05 mg/inh [place] [facility] [place], 1 spray(s), Nasal, BID gabapentin 300 mg [...] mg Tab) fluticasone nasal (Flonase 0.05 mg/inh [facility] [place]) gabapentin (gabapentin 300 mg Cap) glimepiride (glimepiride [...] EST With: Adam COHN, Edwin Cole Where: [address] [address]- Tuesday 1:00 PM EST With: Dixon Dubose PA-C Where: Cardiology Clinic 2024 8:00 AM EDT With: Where: [address] [address]- Medications What How Much When Why Instructions [...] Unchanged fluticasone nasal (Flonase 0.05 mg/ inh [facility] [place]) 1 Sprays Nasal Inhalation 2 times a [...] 21 tab(s), Refills(s) 0, Pharmacy: [facility]/pharmacy #[id number], 178, cm, 07/31/24 14:02:00 [...] Oral, Daily, 1 refills Flonase 0.05 mg/inh [facility] [place], 1 spray(s), Nasal, BID gabapentin 300 mg [...] 1 r (more content not included)... Normal [facility] Comment on above: Result Comment: [...] 21 tab(s), Refills(s) 0, Pharmacy: [facility]/pharmacy #[id number], 178, cm, 07/31/24 14:02:00 EDT, Height/Length Dosing, 78.5, kg, 07/31/24 14:02:00 EDT, Weight Dosing tramadol, 50 mg = 1 tab(s), Oral, q4hr, PRN for pain, X 7 day(s), # 21 tab(s), Refills(s) 0, Pharmacy: [facility]/pharmacy #[id number], 178, cm, 07/31/24 14:02:00 [...] Oral, Daily, 1 refills Flonase 0.05 mg/inh [place] [facility] [place], 1 spray(s), Nasal, BID gabapentin 300 mg [...] influenza virus vaccine, inactivated 08/02/2014 Recorded Normal [facility] Comment on above: Result Comment: [...] mg Tab) fluticasone nasal (Flonase 0.05 mg/inh [place] [facility] [place]) gabapentin (gabapentin 300 mg Cap) glimepiride (glimepiride [...] PM EDT With: Edwin Garcia MD Where: [address] [id number]- 2023 9:15 AM EST With: Edwin Garcia MD Where: [address] [address]- Tuesday 1:00 PM EST With: Dixon Dubose PA-C Where: Cardiology Clinic 2024 8:00 AM EDT With: Where: [address] [id number]- Medications What How Much When Instructions Unchanged [...] Unchanged fluticasone nasal (Flonase 0.05 mg/ inh [place] [facility] [place]) 1 Sprays Nasal Inhalation 2 times a [...] choosing us for your care. Normal [facility] Family Medicine Office/Clini c Noteon 07-24-2024 Family Medicine Office/Clinic Note Family Medicine Office/Clinic Note HPI Staff Dariel is an 84 year old male presenting for ER follow up ER followup: Hospital: [place] Visit date: 07/14/24 Symptoms the patient presented [...] patient was under the dosed. Patient stated [place] was helping him more. Patient denies any [...] - Will do Tizanadine - Will do [place] for pain - Follow up in 1 week. - Will send to pain Ordered: [facility] External Ambulatory Referral 2. Inguinal hernia of left side without obstruction or gangrene (K40.90: Unilateral inguinal hernia, without obstruction or gangrene, not specified as recurrent) - Pt cancelled his surgery. - NO pain at this time. - Encouraged follow up Ordered: [facility] External Ambulatory Referral 3. Nonsmoker (Z78.9: Other specified health status) - Please continue to not smoke Ordered: Body Mass Index (BMI) documented 3008F Current tobacco non-user 1036F Depression Screening Negative 3352F [facility] External Ambulatory Referral Most recent [...] 90 tab(s), Refills(s) 1, Pharmacy: [facility]/pharmacy #[id number], 178, cm, 07/24/24 14:57:00 EDT, [...] Oral, Daily, 1 refills Flonase 0.05 mg/inh [place], 1 spray(s), Nasal, BID gabapentin 300 mg Cap, 300 mg= 1 cap(s), Oral, Daily, 1 refills glimepiride 2 mg Tab, 2 mg= 1 tab(s), Oral, Daily, 1 refills Jantoven 5 mg oral tablet, 5 mg= 1 tab(s), Oral, Daily levothyroxine 25 mcg (0.025 mg) Tab, 25 mcg= 1 tab(s), Oral, Daily, 1 refills [place] 325 mg-5 mg oral tablet, 1 tab(s), [...] No. Househol (more content not included)... Normal [facility] Comment on above: Result Comment: [...] AM EST With: Edwin Garcia MD Where: [address] [address]- Tuesday 1:00 PM EST With: Dixon Dubose PA-C Where: [facility] 2024 8:00 AM EDT With: Where: [address] [address]- Medications What How Much When Instructions Unchanged [...] choosing us for your care. Clarke [facility] Medicine Office/Clini c Noteon 07-03-2024 [...] gram, Refill(s) 0, each nostril, [facility]/pharmacy #[id number], 178, cm, 07/03/24 10:05:00 EDT, Height/Length Dosing, 80.8, kg, 07/03/24 10:05:00 EDT, Weight Dosing gabapentin, 300 mg = 1 cap(s), Oral, Daily, # 90 cap(s), Refills(s) 1, Pharmacy: [facility], 178, cm, 07/03/24 10:05:00 EDT, Height/Length Dosing, 80.8, kg, 07/03/24 10:05:00 EDT, Weight Dosing omeprazole, 40 mg = 1 cap(s), Oral, Daily, # 90 cap(s), Refills(s) 0, Pharmacy: [facility], 178.2, cm, 02/02/24 10:29:00 EDT, Height/Length Dosing, 84.1, kg, 02/02/24 10:29:00 EDT, Weight Dosing sildenafil, 100 mg = 1 tab(s), Oral, Daily, PRN for erectile dysfunction, 1 hour before sexual activity, # 5 tab(s), Refills(s) 0, Pharmacy: [facility], 178, cm, 07/03/24 10:05:00 EDT, Height/Length Dosing, 80.8, kg, 07/03/24 10:05:00 EDT,... 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 Normal [facility] Comment on above: Result Comment: [...] Basophils/100 WBC (Bld) 0.9 % Normal 0.0-2.0 [facility] Comment on above: Performed By: #### 2 [id number] #### [facility] [address] [place] [address] Basophils/Leukocytes Auto (Bld) [Pure # fraction] 0.0 E9/L Normal 0.0-0.2 [facility] Comment on above: Performed By: #### 2 [id number] #### [facility] [address] [place] [address] Eosinophils (Bld) [#/Vol] 0.1 E9/L Normal 0.0-0.5 [facility] Comment on above: Performed By: #### 2 189403 #### [facility] [address] [place] [address] Eosinophils/100 WBC (Bld) 2.4 % Normal 0.0-8.0 [facility] Comment on above: Performed By: #### 2 [id number] #### [facility] [address] [place] [address] Erythrocyte distribution width (RBC) [Ratio] 14.4 % High 10.9-14.2 [facility] Comment on above: Performed By: #### 2 [id number] #### [facility] [address] [place] [address] Hematocrit (Bld) [Volume fraction] 42.2 % Normal 37.7-49.0 [facility] Comment on above: Performed By: #### 2 188810 #### [facility] [address] [place] [address] Hemoglobin (Bld) [Mass/Vol] 14.0 g/dL Normal 13.5-17.5 [facility] Comment on above: Performed By: #### 2 810668 #### [facility] [address] [place] [address] Lymphocytes (Bld) [#/Vol] 1.4 E9/L Normal 1.0-4.0 [facility] Comment on above: Performed By: #### 2 976075 #### [facility] [address] [place] [address] Lymphocytes/100 WBC (Bld) 34.0 % Normal 14.0-50.0 [facility] Comment on above: Performed By: #### 2 110592 #### [facility] [address] [place] [address] MCH (RBC) [Entitic mass] 30.8 pg Normal 27.0-34.0 [facility] Comment on above: Performed By: #### 2 118145 #### [facility] [address] [place] [address] MCHC (RBC) [Mass/Vol] 33.1 g/dL Normal 31.4-36.0 [facility] Comment on above: Performed By: #### 2 591792 #### [facility] [address] [place] [address] MCV (RBC) [Entitic vol] 92.9 fL Normal 80.0-100.0 [facility] Comment on above: Performed By: #### 2 896687 #### [facility] [address] [place] [address] Monocytes (Bld) [#/Vol] 0.4 E9/L Normal 0.2-1.0 [facility] Comment on above: Performed By: #### 2 838333 #### [facility] [address] [place] [address] Neutrophils (Bld) [#/Vol] 2.2 E9/L Normal 2.0-7.5 [facility] Comment on above: Performed By: #### 2 681583 #### [facility] [address] [place] [address] Neutrophils/100 WBC (Bld) 53.4 % Normal 36.0-75.0 [facility] Comment on above: Performed By: #### 2 712489 #### [facility] [address] [place] [address] Platelet 166.0 E9/L Normal 150.0-500.0 [facility] Comment on above: Performed By: #### 2 535210 #### [facility] [address] [place] [address] Platelet mean volume (Bld) [Entitic vol] 9.8 fL Normal 6.4-10.8 [facility] Comment on above: Performed By: #### 2 365811 #### [facility] [address] [place] [address] RBC (Bld) [#/Vol] 4.5 E12/L Normal 4.3-5.9 [facility] Comment on above: Performed By: #### 2 518331 #### [facility] [address] [place] [address] WBC corrected for nucl RBC Auto (Bld) [#/Vol] 4.2 E9/L Normal 4.0-11.0 [facility] Comment on above: Performed By: #### 2 248168 #### [facility] [address] [place] [address] CHEMISTRYOrdered By: SYSTEM SYSTEM on 05-01-2024 Albumin [...] for this result was chemiluminescence using [employer]'s Access Hybritech PSA reagent. Protein [Mass/Vol] 7.1 [...] 05-01-2024 Albumin [Mass/Vol] 4.2 g/dL Normal 3.3-5.0 [facility] Comment on above: Performed By: #### 2 647359 #### [facility] [address] [place] [address] Albumin/Globulin (S) [Mass conc ratio] 1.4 Normal 1.1-2.2 [facility] Comment on above: Performed By: #### 2 449234 #### [facility] [address] [place] [address] ALP [Catalytic activity/Vol] 83 Int._Unit/L Normal 21-98 [facility] Comment on above: Performed By: #### 2 811356 #### [facility] [address] [place] [address] ALT No additional P-5'-P [Catalytic activity/Vol] 14 Int._Unit/L Normal 6-46 [facility] Comment on above: Performed By: #### 2 944000 #### [facility] [address] [place] [address] Anion gap [Moles/Vol] 10 mmol/L Normal 6-16 [facility] Comment on above: Performed By: #### 2 634559 #### [facility] [address] [place] [address] AST [Catalytic activity/Vol] 22 Int._Unit/L Normal 5-43 [facility] Comment on above: Performed By: #### 2 282262 #### [facility] [address] [place] [address] Bilirubin [Mass/Vol] 0.9 mg/dL Normal 0.0-1.1 [facility] Comment on above: Performed By: #### 2 348182 #### [facility] [address] [place] [address] Calcium [Mass/Vol] 9.5 mg/dL Normal 8.9-11.1 [facility] Comment on above: Performed By: #### 2 953478 #### [facility] [address] [place] [address] Chloride [Moles/Vol] 103 mmol/L Normal 101-111 [facility] Comment on above: Performed By: #### 2 190130 #### [facility] [address] [place] [address] CO2 [Moles/Vol] 29 mmol/L Normal 21-31 [facility] Comment on above: Performed By: #### 2 649674 #### [facility] [address] [place] [address] Creatinine [Mass/Vol] 1.1 mg/dL Normal 0.5-1.3 [facility] Comment on above: Performed By: #### 2 192571 #### [facility] [address] [place] [address] Globulin (S) [Mass/Vol] 2.9 g/dL Normal 1.4-4.0 [facility] Comment on above: Performed By: #### 2 232755 #### [facility] [address] [place] [address] Glucose [Mass/Vol] 104 mg/dL Normal 55-199 [facility] Comment on above: Performed By: #### 2 920962 #### [facility] [address] [place] [address] Potassium [Moles/Vol] 5.2 mmol/L Normal 3.5-5.3 [facility] Comment on above: Performed By: #### 2 078076 #### [facility] [address] [place] [address] Protein [Mass/Vol] 7.1 g/dL Normal 6.0-7.8 [facility] Comment on above: Performed By: #### 2 068436 #### [facility] [address] [place] [address] Sodium [Moles/Vol] 137 mmol/L Normal 135-145 [facility] Comment on above: Performed By: #### 2 227680 #### [facility] [address] [place] [address] Urea nitrogen [Mass/Vol] 15 mg/dL Normal 5-21 [facility] Comment on above: Performed By: #### 2 902826 #### [facility] [address] [place] [address] Urea nitrogen/Creatinine [Mass ratio] 14 No Units Normal 10-20 [facility] Comment on above: Performed By: #### 2 938558 #### [facility] [address] [place] [address] HEMATOLOGYOrdered By: SYSTEM SYSTEM on 05-01-2024 Basophils/100 [...] 05-01-2024 Cholesterol [Mass/Vol] 168 mg/dL Normal 120-200 [facility] Comment on above: Performed By: #### 2 840056 #### [facility] [address] [place] [address] Cholesterol in HDL [Mass/Vol] 54 mg/dL Invalid Interpretation Code [facility] Comment on above: Result Comment: '>= 60 LOW RISK' '<= 40 HIGH RISK' Performed By: #### 2 440839 #### [facility] [address] [place] [address] Cholesterol in LDL [Mass/Vol] 99 mg/dL Normal <=129 [facility] Comment on above: Performed By: #### 2 651628 #### [facility] [address] [place] [address] Cholesterol in VLDL [Mass/Vol] 16 mg/dL Normal 7-40 [facility] Comment on above: Performed By: #### 2 841321 #### [facility] [address] [place] [address] Triglyceride [Mass/Vol] 78 mg/dL Normal <=149 [facility] Comment on above: Performed By: #### 2 023006 #### [facility] [address] [place] [address] PSA Screen, Totalon 05-01-20 24 Prostate specific Ag [Mass/Vol] 1.3 ng/mL Normal 0.1-3.5 [facility] Comment on above: Result Comment: The concentration of PSA determined by different manufacturers can vary due to differences in assay methods and reagent specificity. Values obtained from different assay methods cannot be used interchangeably. The methodology used for this result was chemiluminescence using [employer]'s Access Hybritech PSA reagent. Performed By: #### 1 [id number] #### [facility] [address] [place] [address] CHEMISTRYOrdered By: Sara ROP User on 03-26-2024 Glucose [Mass/Vol] 92 mg/dL Normal 55 - 99 mg/dL [facility] POC Subsection Comment on above: Result Comment: Justine garcia RN/ POC Device SN [id number] 1 Invalid Interpretation Code [facility] POC Subsection POC User ID [id number] 1 Invalid Interpretation Code [facility] POC Subsection POC Username LORNA WILSON Invalid Interpretation Code [facility] POC Subsection COAGULATIONOrdered By: Toshia Tadeo on 03-26-2024 aPTT Coag (PPP) [Time] 35.8 s Normal 25.1 - 36.5 second(s) [facility] Auto Coag Comment on above: [...] same coagulation reagent and instrumentation as [facility]. Currently there are no coagulation studies available worldwide for children to 14 days, and no normal ranges. Heparin therapeutic range (represented by Anti-Factor Xa activity of 0.2 - 0.4 U/mL) corresponds to PTT of 56.6 - 109.0 sec. INR Coag (PPP) [Relative time] 1.19 {INR} Invalid Interpretation Code [facility] Auto Coag Comment on above: Interpretive Data: I NR results are specifically intended to assess patients stabilized on long-term Anticoagulation therapy suggested INR s Less Intensive Anticoagulation 2.0 3.0 Conventional Range 3.0 4.5 PT Coag (PPP) [Time] 13.4 s High 9.4 - 1 2.5 second(s) [facility] Auto Coag Comment on above: [...] same coagulation reagent and instrumentation as [facility]. Currently there are no coagulation [...] [Mass fraction] 5.6 % Normal <=5.9% [facility] ChemAutoSS HEMATOLOGYOrdered By: SYSTEM SYSTEM on 12-01-2023 [...] Normal 80.0 - 100.0 fL Remisol Heme [place] Absolute 0.5 E9/L Normal 0.2 - 1.0 [...] Heme Basic Metabolic Panelon 10-15 Calcium [Mass/Vol] 9.9274328 mg/dL Normal 8.6-10 .3 mg/dL [employer] Other Chloride [Moles/Vol] 102 mmol/L Normal 98-107 mmol/L [employer] Other CO2 [Moles/Vol] 32.42568696 mmol/L High 21.0-3 1.0 mmol/L [employer] Other Creatinine [Mass/Vol] 1.01807417 mg/dL Normal 0. 70-1.30 mg/dL [employer] Other GFR/1.73 sq M.predicted MDRD (S/P/Bld) [Vol rate/Area] mL/min/{1.73_m2} [employer] Other Glucose [Mass/Vol] 93 mg/dL Normal 70-100 mg/dL [employer] Other Potassium [Moles/Vol] 4.52188793 mmol/L Normal 3 .5-5.1 mmol/L [employer] Other Sodium [Moles/Vol] 138 mmol/L Normal 136-145 mmol/L [employer] Other Urea nitrogen [Mass/Vol] 13 mg/dL Normal 7-25 mg/dL [employer] Other Complete Blood Count Auto Di ffon 11-02-2023 Basophils (Bld) [#/Vol] 0.535311319 10*3/uL Normal 0.0-0.2 10*3/uL [employer] Other Basophils/100 WBC (Bld) 1.000 % . % [employer] Other Eosinophils (Bld) [#/Vol] 0.510097373 10*3/uL Normal 0.0-0.45 10*3/uL [employer] Other Eosinophils/100 WBC (Bld) 2.100 % . % [employer] Other Erythrocyte distribution width (RBC) [Ratio] 14.000 % Normal 12.0-14.8 % [employer] Other Hematocrit (Bld) [Volume fraction] 38.800 % Normal 38.8-50.0 % [employer] Other Hemoglobin (Bld) [Mass/Vol] 13.620206 g/dL Normal 13.0-17.0 g/dL [employer] Other Lymphocytes (Bld) [#/Vol] 1.025184501 10*3/uL Normal 1.00-4.8 10*3/uL [employer] Other Lymphocytes/100 WBC (Bld) 21.800 % . % [employer] Other MCH (RBC) [Entitic mass] 31.5000 pg Normal 27.5-35.2 pg [employer] Other MCV (RBC) [Entitic vol] 92.7000 fL Normal 83.5-101 fL [employer] Other Monocytes (Bld) [#/Vol] 0.427519268 10*3/uL Normal 0.0-0.8 10*3/uL [employer] Other Monocytes/100 WBC (Bld) 8.500 % . % [employer] Other Neutrophils (Bld) [#/Vol] 4.235486383 10*3/uL Normal 1.8-7.7 10*3/uL [employer] Other Neutrophils/100 WBC (Bld) 66.600 % . % [employer] Other Platelet mean volume (Bld) [Entitic vol] 9.4000 fL Normal 6.6-10.1 fL [employer] Other Platelets (Bld) [#/Vol] 153 10*3/uL Normal 150-450 10*3/uL [employer] Other RBC (Bld) [#/Vol] 4.19 10*6/uL Normal 3.90-5.60 [employer] Other WBC (Bld) [#/Vol] 6.597910644 10*3/uL Normal 4.1 -10.5 10*3/uL [employer] Other Complete Blood Count Auto Diff 6.1 10*3/uL Normal 4.1-10.5 10*3/uL [employer] Other Complete Blood Count Auto Diff 34.0 g/dL Normal 32.5-35.6 g/dL [employer] Other Complete Blood Count Auto Diff 0.1 /100{WBC} Normal 0-0.5 /100{WBC} [employer] Other Prothrombin Time INRon 06-16 INR Coag (PPP) [Relative time] 2.4 {INR} [employer] Other PT Coag (PPP) [Time] 27.800 s High 9.0-12.9 s [facility] [employer] Other Coding Summaryon 05-12-2020 Coding Summary CODING DATE: 05/12/2020 [facility] STATUS: Home PAYOR: Medicare MC ADMIT [...] Horan Date Saved: 05/12/2020 02:18 pm Normal [facility] ED Clinical Summaryon 2019 ED Clinical Summary [facility] ? Urgent Care [address] [place], [place] [id number] Clinical Summary PERSON INFORMATION Name: DARIEL ZABALA Age: 80 Years Sex: MALE : 1940 MRN: Acct#: Visit Reason: UC - Ear Problem; BILAT EAR PROBLEM Arrival: 05/08/2020 09:32:00 Discharge: 05/08/2020 10:15:00 LOS: 000 00:43 Check In: 05/08/2020 09:32:00 Checkout: 05/08/2020 10:15:00 Address: [facility] [address] PCP: Provider, Unlisted PROVIDER INFORMATION Provider Role [...] Earwax Buildup, Adult Follow-Up: With: Address: When: [facility], [address] [place], [place] [id number] Business (1) Comments: Please follow-up with your Doctor or Dr. Arellano, Medical Doctor tea plantation worker, call their offices and make ointment to be seen in 3 days or sooner for continued care, please purchase glqw-lsa-xikxohq Debrox which helps breakdown earwax, take all your medications as previously prescribed, drink plenty of water for hydration, and return back to urgent care center for any worsening symptoms, concerns, or complications. DIAGNOSIS: 1:Impacted cerumen of both ears Patient Understands: Yes - Patient/family/careg iver verbalizes understanding of instructions given Comment: Normal [facility] ED Patient Summaryon 020 ED Patient Summary [facility] ? Urgent Care [address] [place], [place] [id number] PATIENT DISCHARGE INSTRUCTIONS Patient Information Name: DARIEL ZABALA Age: 80 Years Date of : 1940 Reason For Visit: UC - Ear Problem; BILAT EAR PROBLEM Arrival Time: 05/08/2020 09:32:00 Primary Care Physician: Provider, Unlisted Attending Physician: Larry Billingsley PA-C Comment: Patient Education With: Address: When: [facility], [address] [id number] Business (1) Comments: Please follow-up with your Doctor or Dr. Arellano, Medical Doctor tea plantation worker, call their offices and make ointment to be seen in 3 days or sooner for continued care, please purchase ahdh-iqy-weytqso Debrox which helps breakdown earwax, take all [...] Follow these instructions at home: ? Take ccoc-amv-xtqdlfb and prescription medicines only as told by [...] clean them according to instructions from the seed district sales manager and your health care provider. Contact a [...] 12/08/2005 Document Revised: 10/12/2018 Document Reviewed: 01/11/2018 [employer] Interactive Patient Education ? 2019 [employer] Medication Information: The exam and treatment you received today in the [facility] Emergency Department were for an urgent problem and are not intended as complete care. It is important for you to follow up with a doctor, nurse practitioner, or physician?s assistant county engineer for ongoing care. If your symptoms become [...] so we can reach you if necessary. [facility] Emergency Department has provided you with a complete list of medications post discharge. Please inform your oceanographer physical/provider of your visit and for further instruction [...] both ears (H61.23) UC - Ear Problem ([id number]) If you received any narcotics, sedation, or [...] for Disease Control and Prevention July 2014 [facility] Patient Handouton 05-08-2020 Patient Handout Patient Education [...] Follow these instructions at home: ? Take ckpp-uhf-blmhgss and prescription medicines only as told by [...] clean them according to instructions from the seed district sales manager and your health care provider. Contact a [...] 12/08/2005 Document Revised: 10/12/2018 Document Reviewed: 01/11/2018 [employer] Interactive Patient Education ? 2019 [employer]. Normal [facility] Recordon 020 Urgent Care Record [facility] ? Urgent Care [address] [place] [address] PATIENT DISCHARGE INSTRUCTIONS Patient Information Name: DARIEL ZABALA Age: 80 Years Date of : 1940 Reason For Visit: UC - Ear Problem; BILAT EAR PROBLEM Arrival Time: 05/08/2020 09:32:00 Primary Care Physician: Provider, Unlisted Attending Physician: Larry Billingsley PA-C Comment: Visit Diagnosis: Diagnoses This Visit Impacted cerumen of both ears (H61.23) UC - Ear Problem ([id number]) If you received any narcotics, sedation, or [...] legal documents With: Address: When: Andréslisa Arellano [facility], [address] [place] [address] Business (1) Comments: Please follow-up with your Doctor or Dr. Arellano, Medical Doctor tea plantation worker, call their offices and make ointment to be seen in 3 days or sooner for continued care, please purchase xcsg-uhb-tsfuskc Debrox which helps breakdown earwax, take all your medications as previously prescribed, drink plenty of water for hydration, and return back to urgent care center for any worsening symptoms, concerns, or complications. Medication Information: The exam and treatment you received today in the [facility] Urgent Care were for an urgent problem and are not intended as complete care. It is important for you to follow up with a doctor, nurse practitioner, or physician?s assistant county engineer for ongoing care. If your symptoms become [...] so we can reach you if necessary. [facility] has provided you with a complete list of medications post discharge. Please inform your oceanographer physical/provider of your visit and for further instruction [...] Follow these instructions at home: ? Take lplx-rcf-hstinqm and prescription medicines only as told by [...] clean them according to instructions from the seed district sales manager and your health care provider. Contact a [...] 01/11/2018 [employer] Interactive Patient Education ? 2019 [employer] Viruses or Bacteria What?s got you [...] for Disease Control and Prevention July 2014 [facility] Vital Signs Date Time Vital Sign Value Performing Clinician Facility 07-23-2025 13:28-0400 Body temperature 98.3 [degF] Yanique Mcneill Runteq Work Phone: [facility] 07-23-2025 13:28-0400 Diastolic blood pressure 65 mm[Hg] Yanique Mcneill Runteq Work Phone: [facility] 07-23-2025 13:28-0400 Heart rate 65 /min Yanique Mcneill Runteq Work Phone: [facility] 07-23-2025 13:28-0400 Respiratory rate 18 /min Yanique Mcneill Runteq Work Phone: [facility] 07-23-2025 13:28-0400 SaO2% (BldA) [Mass fraction] 98 % Yanique Mcneill Runteq Work Phone: [facility] 07-23-2025 13:28-0400 Systolic blood pressure 140 mm[Hg] Yanique Reyes [employer]unteq Work Phone: [facility] 07-23-2025 06:00-0400 Body weight 75.5 kg Yanique Mcneill Runteq Work Phone: [facility] 07-22-2025 12:49-0400 Body height 180.34 cm Yanique Mcneill [employer] Work Phone: [facility] 06-23-2025 11:50-0400 Body temperature 97.7 [degF] Erika Crisostomo MD Work Phone: [employer] 06-23-2025 11:50-0400 Diastolic blood pressure 63 mm[Hg] Erika Criosstomo MD Work Phone: [employer] 06-23-2025 11:50-0400 Heart rate 67 /min Erika Crisostomo MD Work Phone: [employer] 06-23-2025 11:50-0400 Respiratory rate 16 /min Erika Crisostomo MD Work Phone: [employer] 06-23-2025 11:50-0400 SaO2% (BldA) [Mass fraction] 99 % Erika Crisostomo MD Work Phone: [employer] 06-23-2025 11:50-0400 Systolic blood pressure 114 mm[Hg] Erika Crisostomo MD Work Phone: [employer] 06-23-2025 04:38-0400 Body mass index (BMI) [Ratio] 22.65 kg/m2 Erika Crisostomo MD Work Phone: [employer] 06-23-2025 04:38-0400 Body weight 71.6 kg Erika Crisostomo MD Work Phone: [employer] 06-19-2025 12:37-0400 Body height 177.8 cm Erika Crisostomo MD Work Phone: [employer] 06-05-2025 15:00-0400 Diastolic blood pressure 47 mm[Hg] Axel Monet DO Work Phone: [employer] 06-05-2025 15:00-0400 Heart rate 71 /min Axel Monet DO Work Phone: [employer] 06-05-2025 15:00-0400 Respiratory rate 15 /min [facility] DO [email or web address] 06-05-2025 15:00-0400 Systolic blood pressure 110 mm[Hg] Axel Monet DO [facility] 06-05-2025 13:00-0400 Body temperature 97.7 [degF] Axel Monet DO Work [facility] 06-05-2025 06:30-0400 SaO2% (BldA) [Mass fraction] 100 % Axel Monet DO Work [facility] 06-05-2025 04:00-0400 Body mass index (BMI) [Ratio] 26.48 kg/m2 Axel Monet DO Work Phone[facility] 06-05-2025 04:00-0400 Body weight 83.7 kg Axel Wingripdomitila ELLIS Work Phone: [facility] 06-02-2025 10:06-0400 Body height 177.8 cm Axel Monet DO Work [facility] 11-26-2024 10:27-0500 Body mass index (BMI) [Ratio] 24.74 kg/m2 Emiliano Escamilla MD Work Phone: [facility] 11-26-2024 10:27-0500 Body weight 77.11 kg Emiliano Escamilla MD Work Phone: [facility] 11-26-2024 10:27-0500 Diastolic blood pressure 73 mm[Hg] Emiliano Escamilla MD Work Phone: [facility] 11-26-2024 10:27-0500 Heart rate 87 /min Emiliano Escamilla MD Work Phone: [facility] 11-26-2024 10:27-0500 Systolic blood pressure 148 mm[Hg] Emiliano Escamilla MD Work Phone: [phone] [place] [address] 11-19-2024 14:27-0500 Diastolic blood pressure 82 mm[Hg] Axel Hern[facility]dez [facility] 11-19-2024 14:27-0500 Heart rate 66 /min Axel Hern[facility]dez [facility] 11-19-2024 14:27-0500 Mean blood pressure 103 mm[Hg] Axel Edgar [facility] 11-19-2024 14:27-0500 Respiratory rate 18 /min Axel Hern[facility]dez [facility] 11-19-2024 14:27-0500 SaO2% (BldA) [Mass fraction] 95 % Axel Hern[facility]dez [facility] 11-19-2024 14:27-0500 Systolic blood pressure 144 mm[Hg] Axel Edgar [facility] 11-19-2024 13:23-0500 Blood Pressure Location Axel Hernández [facility] 11-19-2024 13:23-0500 Body temperature 96.8 [degF] Axel Edgar [facility] 11-19-2024 13:23-0500 Diastolic blood pressure 69 mm[Hg] Axel Edgar [facility] 11-19-2024 13:23-0500 Heart rate 63 /min Axel Edgar [facility] 11-19-2024 13:23-0500 Mean blood pressure 92 mm[Hg] Axel Edgar [facility] 11-19-2024 13:23-0500 Respiratory rate 20 /min Axel Edgar [facility] 11-19-2024 13:23-0500 SaO2% (BldA) [Mass fraction] 99 % Axel Edgar [facility] 11-19-2024 13:23-0500 Systolic blood pressure 139 mm[Hg] Axel Edgar [facility] 11-19-2024 13:05-0500 Body temperature 97.34 [degF] Axel Edgar [facility] 11-19-2024 13:05-0500 Diastolic blood pressure 69 mm[Hg] Axel Edgar [facility] 11-19-2024 13:05-0500 Heart rate 65 /min Axel Hern[facility]dez [facility] 11-19-2024 13:05-0500 Mean blood pressure 87 mm[Hg] Axel Hern[facility]dez [facility] 11-19-2024 13:05-0500 Respiratory rate 16 /min Axel Hern[facility]dez [facility] 11-19-2024 13:05-0500 SaO2% (BldA) [Mass fraction] 97 % Axel Edgar [facility] 11-19-2024 13:05-0500 Systolic blood pressure 122 mm[Hg] Axel Hern[facility]dez [facility] 11-19-2024 12:40-0500 Body temperature 97.7 [degF] Axel Hern[facility]dez [facility] 11-19-2024 12:35-0500 Respiratory rate 12 /min Axel Edgar [facility] 11-19-2024 12:30-0500 Body temperature 96.8 [degF] Axel Hern[facility]dez [facility] 11-19-2024 12:30-0500 Respiratory rate 13 /min Axel Hern[facility]dez [facility] 11-19-2024 12:25-0500 Body temperature 96.8 [degF] Axel Hern[facility]dez [facility] 11-19-2024 12:25-0500 Respiratory rate 15 /min Axel Hern[facility]dez [facility] 11-19-2024 12:20-0500 Body temperature 96.8 [degF] Axel Hern[facility]dez [facility] 11-19-2024 09:55-0500 Mean blood pressure 85 mm[Hg] Axel Hern[facility]dez [facility] 11-19-2024 09:52-0500 Mean blood pressure 79 mm[Hg] Axel [facility]dez [facility] 10-30-2024 10:36-0500 Diastolic blood pressure 67 mm[Hg] Axel Hern[facility]dez [facility] 10-30-2024 10:36-0500 Heart rate 57 /min Axel Hern[facility]dez [facility] 10-30-2024 10:36-0500 Mean blood pressure 86 mm[Hg] Axel [facility]dez [facility] 10-30-2024 10:36-0500 Systolic blood pressure 124 mm[Hg] Axel Edgar [facility] 10-30-2024 10:34-0500 Heart rate 56 /min Axel Hern[facility]dez [facility] 10-30-2024 10:34-0500 SaO2% (BldA) [Mass fraction] 100 % Axel Hern[facility]dez [facility] 10-30-2024 10:34-0500 Diastolic blood pressure 83 mm[Hg] Axel Hern[facility]dez [facility] 10-30-2024 10:34-0500 Mean blood pressure 105 mm[Hg] Axel [facility]dez [facility] 10-30-2024 10:34-0500 Systolic blood pressure 148 mm[Hg] Axel Hern[facility]dez [facility] 10-03-2024 10:58-0500 Body height 176.5 cm Axel Hernández DO Work Phone: [place] [address]-20-2024 10:58-0500 Body mass index (BMI) [Ratio] 26.64 kg/m2 Axel Hernández DO Work Phone: [facility] 10-03-2024 10:58-0500 Body temperature 98.1 [degF] Axel Hernández DO Work Phone: [facility] 10-03-2024 10:58-0500 Body weight 83.01 kg Axel Hernández DO Work Phone: [facility] 08-28-2024 14:47-0400 Blood Pressure Location Davie Mourany [facility] 08-28-2024 14:47-0400 Diastolic blood pressure 75 mm[Hg] Davie Mourany [facility] 08-28-2024 14:47-0400 Heart rate 65 /min Davie Tristanurany [facility] 08-28-2024 14:47-0400 Respiratory rate 16 /min Davie Tristanurany [facility] 08-28-2024 14:47-0400 Systolic blood pressure 119 mm[Hg] Davie Mourany [facility] 06-11-2024 12:48-0400 Diastolic blood pressure 78 mm[Hg] Kashif Kirnus [facility] 06-11-2024 12:48-0400 Heart rate 70 /min Kashif Kirnus [facility] 06-11-2024 12:48-0400 Respiratory rate 18 /min Kashif Kirnus [facility] 06-11-2024 12:48-0400 SaO2% (BldA) [Mass fraction] 97 % Kashif Kirnus [facility] 06-11-2024 12:48-0400 Systolic blood pressure 138 mm[Hg] Kashif Kirnus [facility] 05-30-2024 13:31-0400 Blood Pressure Location Dixon Dubose [facility] 05-30-2024 13:31-0400 Diastolic blood pressure 70 mm[Hg] Dixon Dubose [facility] 05-30-2024 13:31-0400 Heart rate 75 /min Dixon Dubose [facility] 05-30-2024 13:31-0400 Respiratory rate 18 /min Dixon Dubose [facility] 05-30-2024 13:31-0400 SaO2% (BldA) [Mass fraction] 95 % Dixon Dubose [facility] 05-30-2024 13:31-0400 Systolic blood pressure 130 mm[Hg] Dixon Dubose [facility] 04-20-2024 13:17-0400 Diastolic blood pressure 78 mm[Hg] Kashif Kirnus [facility] 04-20-2024 13:17-0400 Heart rate 62 /min Kashif Kirnus [facility] 04-20-2024 13:17-0400 SaO2% (BldA) [Mass fraction] 97 % Kashif Kirnus [facility] 04-20-2024 13:17-0400 Systolic blood pressure 138 mm[Hg] Kashif Kirnus [facility] 03-26-2024 14:30-0400 Diastolic blood pressure 64 mm[Hg] Axel Hern[facility]dez [facility] 03-26-2024 14:30-0400 Heart rate 50 /min Axel Hern[facility]dez [facility] 03-26-2024 14:30-0400 Respiratory rate 16 /min Axel Edgar [facility] 03-26-2024 14:30-0400 SaO2% (BldA) [Mass fraction] 98 % Axel Edgar [facility] 03-26-2024 14:30-0400 Systolic blood pressure 128 mm[Hg] Axel Edgar [facility] 03-26-2024 13:31-0400 Heart rate 54 /min Axel Edgar [facility] 03-26-2024 13:31-0400 SaO2% (BldA) [Mass fraction] 97 % Axel Edgar [facility] 03-26-2024 13:31-0400 Respiratory rate 16 /min Axel Edgar [facility] 03-26-2024 13:30-0400 Body temperature 97.34 [degF] Axel Edgar [facility] 03-26-2024 13:29-0400 Blood Pressure Location Axel Edgar [facility] 03-26-2024 13:29-0400 Diastolic blood pressure 70 mm[Hg] Axel Hern[facility]dez [facility] 03-26-2024 13:29-0400 Mean blood pressure 88 mm[Hg] Axel Hern[facility]dez [facility] 03-26-2024 13:29-0400 Systolic blood pressure 125 mm[Hg] Axel Hern[facility]dez [facility] 03-26-2024 13:20-0400 Body temperature 97.52 [degF] Axel Hern[facility]dez [facility] 03-26-2024 13:20-0400 Diastolic blood pressure 63 mm[Hg] Axel Hern[facility]dez [facility] 03-26-2024 13:20-0400 Heart rate 54 /min Axel Edgar [facility] 03-26-2024 13:20-0400 Mean blood pressure 77 mm[Hg] Axel Edgar [facility] 03-26-2024 13:20-0400 Respiratory rate 15 /min Axel Hern[facility]dez [facility] 03-26-2024 13:20-0400 SaO2% (BldA) [Mass fraction] 97 % Axel Edgar [facility] 03-26-2024 13:20-0400 Systolic blood pressure 104 mm[Hg] Axel Hern[facility]dez [facility] 03-26-2024 13:15-0400 Mean blood pressure 73 mm[Hg] Axel Hern[facility]dez [facility] 03-26-2024 13:15-0400 Respiratory rate 15 /min Axel Edgar [facility] 03-26-2024 13:10-0400 Mean blood pressure 72 mm[Hg] Axel Edgar [facility] 03-26-2024 13:10-0400 Respiratory rate 11 /min Axel Edgar [facility] 03-26-2024 12:55-0400 Body temperature 97.52 [degF] Axel Hern[facility]dez [facility] 03-26-2024 12:50-0400 Respiratory rate 1 /min Axel Hern[facility]dez [facility] 03-26-2024 09:36-0400 Blood Pressure Location Axel Hernández [facility] 03-26-2024 09:36-0400 Mean blood pressure 112 mm[Hg] Axel Hern[facility]dez [facility] 03-26-2024 09:34-0400 Mean blood pressure 97 mm[Hg] Axel Edgar [facility] 03-26-2024 09:34-0400 Body temperature 97.34 [degF] Axel Edgar [facility] 03-26-2024 09:34-0400 Blood Pressure Location Axel Edgar [facility] 03-26-2024 09:34-0400 Heart rate 50 /min Axel Edgar [facility] 03-06-2024 08:11-0400 Blood Pressure Location Axel Edgar [facility] 03-06-2024 08:11-0400 Diastolic blood pressure 74 mm[Hg] Axel Edgar [facility] 03-06-2024 08:11-0400 Heart rate 56 /min Axel Edgar [facility] 03-06-2024 08:11-0400 Mean blood pressure 98 mm[Hg] Axel Edgar [facility] 03-06-2024 08:11-0400 Systolic blood pressure 147 mm[Hg] Axel Edgar [facility] 03-06-2024 08:11-0400 Heart rate 57 /min Axel Edgar [facility] 03-06-2024 08:11-0400 SaO2% (BldA) [Mass fraction] 98 % Axel Edgar [facility] 03-06-2024 08:10-0400 Blood Pressure Location Axel Edgar [facility] 03-06-2024 08:10-0400 Body temperature 98.06 [degF] Axel Edgar [facility] 03-06-2024 08:10-0400 Diastolic blood pressure 73 mm[Hg] Axel Edgar [facility] 03-06-2024 08:10-0400 Mean blood pressure 92 mm[Hg] Axel Hern[facility]dez [facility] 03-06-2024 08:10-0400 Systolic blood pressure 129 mm[Hg] Axel Hern[facility]dez [facility] 03-06-2024 08:10-0400 Respiratory rate 18 /min Axel Hern[facility]dez [facility] 11-18-2023 11:00-0500 Body height 180.34 cm Jada Rene Other [employer] Other 11-18-2023 11:00-0500 Body mass index (BMI) [Ratio] 25.38 kg/m2 Jada Rene Other [employer] Other 11-18-2023 11:00-0500 Body temperature 97.6 [degF] Jada Rene Other [employer] Other 11-18-2023 11:00-0500 Body weight 82.56 kg Jada eRne Other [employer] Other 11-18-2023 11:00-0500 Diastolic blood pressure 80 mm[Hg] Jada Rene Other [employer] Other 11-18-2023 11:00-0500 Respiratory rate 18 /min Jada Rene Other [employer] Other 11-18-2023 11:00-0500 SaO2% (BldA) [Mass fraction] 99 % Jada Rene Other [employer] Other 11-18-2023 11:00-0500 Systolic blood pressure 132 mm[Hg] Jada Rene Other [employer] Other 11-02-2023 13:00-0500 Body height 180.34 cm Jada Rene Other [employer] Other 11-02-2023 13:00-0500 Body mass index (BMI) [Ratio] 24.4 kg/m2 Jada Rene Other [employer] Other 11-02-2023 13:00-0500 Body weight 79.38 kg Jada Rene Other [employer] Other 11-02-2023 13:00-0500 Diastolic blood pressure 82 mm[Hg] Jada Rene Other [employer] Other 11-02-2023 13:00-0500 Respiratory rate 18 /min Jada Rene Other [employer] Other 11-02-2023 13:00-0500 SaO2% (BldA) [Mass fraction] 97 % Jada Rene Other [employer] Other 11-02-2023 13:00-0500 Systolic blood pressure 138 mm[Hg] Jada Rene Other [employer] Other 09-21-2023 10:00-0500 Body height 180.34 cm Jada Rene Other [employer] Other 09-21-2023 10:00-0500 Body mass index (BMI) [Ratio] 25.81 kg/m2 Jada Rene Other [employer] Other 09-21-2023 10:00-0500 Body weight 83.96 kg Jada Rene Other [employer] Other 09-21-2023 10:00-0500 Diastolic blood pressure 70 mm[Hg] Jada Rene Other [employer] Other 09-21-2023 10:00-0500 Respiratory rate 18 /min Jada Rene Other [employer] Other 09-21-2023 10:00-0500 SaO2% (BldA) [Mass fraction] 98 % Jada Rene Other [employer] Other 09-21-2023 10:00-0500 Systolic blood pressure 140 mm[Hg] Jada Rene Other [employer] Other 06-16-2023 11:00-0400 Body height 180.34 cm Jada Rene Other [employer] Other 06-16-2023 11:00-0400 Body mass index (BMI) [Ratio] 23.79 kg/m2 Jada Rene Other [employer] Other 06-16-2023 11:00-0400 Body weight 77.38 kg Jada Rene Other [employer] Other 06-16-2023 11:00-0400 Diastolic blood pressure 64 mm[Hg] Jada Rene Other [employer] Other 06-16-2023 11:00-0400 Respiratory rate 18 /min Jada Rene Other [employer] Other 06-16-2023 11:00-0400 SaO2% (BldA) [Mass fraction] 98 % Jada Rene Other [employer] Other 06-16-2023 11:00-0400 Systolic blood pressure 118 mm[Hg] Jada Rene Other [employer] Other Encounters Encounter Date Encounter Type Care Provider Facility Start: 05-13-2026 ambulatory YANIQUE A REYES Facili ty:[facility] [place] Start: 08-08-2025 ambulatory YANIQUE A REYES Facili ty:[facility] [place] Start: 07-31-2025 ambulatory Zechariah CREWS Facility :[facility] [place] Start: 07-25-2025 End: 07-25-2025 ambulatory BUSINESS PROCESS CONSULTANT YANIQUE A REYES Facility:[facility] [place] Start: 07-24-2025 ambulatory BUSINESS PROCESS CONSULTANT YANIQUE REYES Faci lity:[facility] [place] Start: 07-24-2025 ambulatory BUSINESS PROCESS CONSULTANT YANIQUE A REYES Fa cility:CD:[id number] Start: 07-22-2025 End: 07-22-2025 External Result Encounter [...] 07-19-2025 Non-patient / Non-visit Axel marshall MD -[facility] Work Phone: Start: 07-19-2025 End: 07-23-2025 Evaluation and management of inpatient Mohamad Billy Facility:[facility] Start: 07-11-2025 End: 07-11-2025 ambulatory YANIQUE A REYES Facility:[facility] Start: 07-08-2025 End: 07-08-2025 ambulatory Jaden Maravilla Facility:[facility] Start: 07-05-2025 End: 07-22-2025 ambulatory YANIQUE A REYES Facility:CD:[id number] Start: 07-04-2025 End: 07-04-2025 ambulatory YANIQUE A REYES Facility:[facility] Start: 06-19-2025 ambulatory YANIQUE A REYES Facili ty: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 [place] Start: 06-07-2025 End: 06-13-2025 ambulatory YANIQUE A REYES Facility:CD:[id number] Start: 06-07-2025 End: 06-07-2025 ambulatory YANIQUE A REYES Facility:[facility] [place] Start: 06-02-2025 End: 06-05-2025 Evaluation and management of inpatient Axel Monet DO Work Phone: [facility] Comment on above: Hyponatremia (Primar y Dx) Start: 05-20-2025 End: 05-20-2025 Lab Drop off YANIQUE A REYES [facility] Start: 05-20-2025 End: 05-20-2025 ambulatory YANIQUETarah MCNEILL Facility:[facility] Start: 05-09-2025 End: 05-09-2025 ambulatory Edwin Garcia Facility:[facility] Start: 02-05-2025 End: 02-06-2025 Lab Drop off Edwin Garcia [facility] Start: 02-05-2025 End: 02-06-2025 ambulatory Edwin Garcia Facility:[facility] Start: 01-24-2025 End: 01-24-2025 Lab Drop off Edwin Garcia [facility] Start: 01-24-2025 End: 01-24-2025 ambulatory Edwin Garcia Facility:[facility] Start: 01-09-2025 End: 01-09-2025 Lab Drop off Edwin Garcia [facility] Start: 01-09-2025 End: 01-09-2025 ambulatory MD Edwin Garcia Facility:[facility] Start: 12-31-2024 End: 12-31-2024 Lab Drop off Edwin Garcia [facility] Start: 12-31-2024 End: 12-31-2024 ambulatory MD [facility] Start: 12-24-2024 End: 12-24-2024 ambulatory Edwin Garcia Facility:[facility] Start: 12-17-2024 End: 12-17-2024 Lab Drop off Edwin Garcia [facility] Start: 12-17-2024 End: 12-17-2024 ambulatory Edwin Garcia Facility:[facility] Start: 12-17-2024 End: 01-22-2025 ambulatory Edwin Garcia Facility:[id number] Start: 11-28-2024 End: 11-28-2024 Bamboo flowsheet Jose L Chow PHYSIOTHERAPY ASSISTANT Work Phone: [facility] Start: 11-28-2024 End: 11-28-2024 Bamboo flowsheet Jose L Chow PHYSIOTHERAPY ASSISTANT Work Phone: [facility] Start: 11-28-2024 End: 11-28-2024 Postop follow up visit related to original px Jose L Chow PHYSIOTHERAPY ASSISTANT Work Phone: [facility] Comment on above: Status post carpal t unnel release (Primary Dx) Start: 11-28-2024 End: 11-28-2024 ambulatory JOSE L CHOW Not Available Start: 11-26-2024 End: 11-26-2024 Bamboo flowsheet Emiliano Escamilla MD Work Phone: [facility] Start: 11-26-2024 End: 11-26-2024 Bamboo flowsheet Emiliano Escamilla MD Work Phone: [facility] Start: 11-26-2024 End: 11-26-2024 Patient encounter procedure Emiliano Escamilla MD [facility] Comment on above: Foreign body of [...] to same day surgery center Axel Hernández [facility] Start: 11-19-2024 End: 11-19-2024 ambulatory Axel Hernández Facility:[facility] Start: 11-13-2024 ambulatory Edwin Garcia Facility :[facility] Start: 11-12-2024 End: 11-12-2024 Lab Drop off Edwin Garcia [facility] Start: 11-12-2024 End: 11-12-2024 ambulatory Edwin Garcia Facility:[facility] Start: 11-01-2024 End: 11-01-2024 ambulatory [facility] Start: 10-30-2024 End: 10-30-2024 ambulatory Axel Hernández Facility:[facility] Start: 10-30-2024 End: 10-30-2024 Patient encounter procedure Axel Hernández [facility] Start: 10-03-2024 End: 10-03-2024 Bamboo flowsheet [...] encounter status Axel Hernández DO Work Phone: [facility] Start: 10-03-2024 End: 10-03-2024 ambulatory AXEL HERNÁNDEZ Not Available Start: 09-28-2024 End: 09-28-2024 Bamboo flowsheet Shala Farrell MD Work Phone: [facility] Start: 09-28-2024 End: 09-28-2024 Bamboo flowsheet Shala Farrell MD Work Phone: [facility] Start: 09-28-2024 End: 09-28-2024 Patient encounter procedure Shala Farrell MD Work Phone: [facility] Comment on above: Pain in both upper e xtremities (Primary Dx); Carpal tunnel syndrome, bilateral Start: 09-28-2024 End: 09-28-2024 ambulatory SHALA FARRELL Not Available Start: 09-10-2024 End: 09-10-2024 ambulatory Edwin Garcia Facility:[facility] [place] Start: 08-28-2024 End: 08-28-2024 ambulatory Davie Vargas Facility:[facility] Start: 08-28-2024 End: 08-28-2024 Patient encounter procedure Davie Vargas [facility] [place] Start: 08-20-2024 End: 08-20-2024 Telephone encounter Shala Farrell MD Work Phone: [facility] Start: 08-13-2024 End: 08-13-2024 ambulatory Nathaniel Bonilla MD Facility: [place] Start: 08-07-2024 End: 08-07-2024 ambulatory Edwin Garcia Facility:[facility] Start: 07-31-2024 End: 07-31-2024 ambulatory Edwin Garcia Facility:[facility] [place] Start: 07-24-2024 End: 07-24-2024 ambulatory Edwin Garcia Facility:[facility] [place] Start: 07-23-2024 ambulatory Edwin Garcia Facility :[facility] Start: 07-05-2024 ambulatory Axel Hernández Facility :[facility] Start: 07-03-2024 End: 07-03-2024 ambulatory Edwin Garcia Facility:[facility] [place] Start: 06-20-2024 End: 06-20-2024 ambulatory AXEL HERNÁNDEZ Not Available Start: 06-11-2024 End: 06-11-2024 ambulatory XXXX NONE Facility:[facility] Start: 06-11-2024 End: 06-11-2024 Patient encounter procedure Kashif Barnett [facility] Start: 05-30-2024 End: 05-30-2024 ambulatory Edwin Garcia Facility:[facility] Start: 05-30-2024 End: 05-30-2024 Patient encounter procedure Dixon Endy Gracy [facility] Start: 05-21-2024 End: 05-21-2024 Patient encounter procedure Kashif Rafa Julissaromina [facility] Start: 05-01-2024 End: 05-01-2024 Patient encounter procedure Kashif Costan [facility] Start: 05-01-2024 End: 05-01-2024 Lab Drop off Edwin Garcia [facility] Start: 04-20-2024 End: 04-20-2024 Patient encounter procedure Kashif D Julissaromina [facility] Start: 04-04-2024 End: 04-04-2024 ambulatory AXEL HERNÁNDEZ Not Available Start: 03-26-2024 End: 03-26-2024 Admission to same day surgery center Axel Hernández [facility] Start: 03-06-2024 End: 03-06-2024 Patient encounter procedure Axel Hernández [facility] Start: 02-15-2024 End: 02-15-2024 ambulatory AXEL HERNÁNDEZ Not Available Start: 02-15-2024 End: 02-15-2024 ambulatory AXEL HERNÁNDEZ Not Available Start: 12-06-2023 End: 12-06-2023 ambulatory Jada Rene Other [facility] Other Start: 12-06-2023 Telephone encounter Jada Rene [facility] [place] Start: 12-02-2023 End: 12-02-2023 ambulatory Jadaendy Rene Other [employer] Other Start: 12-02-2023 Telephone encounter Jada Rene [facility] [place] Start: 12-01-2023 End: 12-01-2023 Lab Drop off Edwin Garcia [facility] Start: 11-18-2023 End: 11-18-2023 ambulatory Jadaendy Rene Other [employer] Other Start: 11-18-2023 Office outpatient vi sit 25 minutes Jadamary Rene [facility] [place] Start: 11-02-2023 End: 11-02-2023 ambulatory Jadaendy Rene Other [employer] Other Start: 11-02-2023 Office outpatient vi sit 25 minutes Jada Rene [facility] [place] Start: 11-02-2023 Telephone encounter Jada Rene [facility] [place] Start: 10-28-2023 End: 10-28-2023 ambulatory Jadaendy Rene Other [employer] Other Start: 10-28-2023 Telephone encounter Jada Rene [facility] [place] Start: 09-30-2023 End: 09-30-2023 Nurse Triage Venessa Riggins RN NURSE EDUCATION RESEARCH ANALYST Comment on above: Refill Request Start: 09-30-2023 Telephone encounter Jada Rene [facility] [place] Start: 09-21-2023 End: 09-21-2023 ambulatory Jadaendy Rene Other [employer] Other Start: 09-21-2023 Office outpatient vi sit 25 minutes Jada Rene [facility] [place] Start: 08-29-2023 End: 08-29-2023 ambulatory Jada Rene Other [employer] Other Start: 08-29-2023 Telephone encounter Jada Rene [facility] [place] Start: 08-26-2023 End: 08-26-2023 ambulatory Jadaendy Rene Other [employer] Other Start: 08-26-2023 Telephone encounter Jada Rene [facility] [place] Start: 08-08-2023 End: 08-08-2023 ambulatory Jadaendy Rene Other [employer] Other Start: 08-08-2023 Telephone encounter Jada Rene [facility] [place] Start: 07-27-2023 End: 07-27-2023 ambulatory Jada Rene Other [employer] Other Start: 07-27-2023 Telephone encounter Jada Rene [facility] [place] Start: 06-16-2023 End: 06-16-2023 ambulatory Jada Rene Other [employer] Other Start: 06-16-2023 Office outpatient ne w 45 minutes Jada Rene [facility] [place] Start: 06-16-2023 Telephone encounter Jada Rene [facility] [place] Procedures Date Procedure Procedure Detail [...] Phone: Start: 06-04-2025 Electrolyte panel Rolf hays [place] DO Work Phone: Start: 06-04-2025 Glucose blood [...] TO MG FOR LOW K Adore Cueto ASTRO TECHNICIAN - PHYSIOTHERAPY ASSISTANT Work Phone: Start: 06-03-2025 End: 06-04-2025 Prothrombin time Adore Cueto ASTRO TECHNICIAN - PHYSIOTHERAPY ASSISTANT Work Phone: Start: 06-02-2025 Glucose blood reagen t strip Brigida Pina DO Work Phone: Start: 06-02-2025 Glucose blood reagen t strip Brigida Matap DO Work Phone: Start: 06-02-2025 BASIC METABOLIC PANE L W/ REFLEX TO MG FOR LOW K Leelee Easley ASTRO TECHNICIAN - BUSINESS PROCESS CONSULTANT Work Phone: Start: 06-02-2025 End: 06-02-2025 Prothrombin time Leelee Easley ASTRO TECHNICIAN - BUSINESS PROCESS CONSULTANT Work Phone: Start: 11-19-2024 [facility] CAPILLARY GLUCO SE POC Axel Hernández DO Work Phone: Start: 11-19-2024 Decompression of med carlos nerve Axel Hernández Start: 03-26-2024 Decompression of med carlos nerve Axel Hernández Decompression of med carlos nerve Axel Hernández 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 Status post carpal tunnel release Jose L Chow PHYSIOTHERAPY ASSISTANT Work Phone: Release of trigger finger Mi jacquie Hernández Surgery (qualifier value) Sa fariha Garcia Plan of Treatment Date Care Activity Detail Author Start: 06-05-2026 GFR test (Diabetes, CKD 3-4, OR last GFR 15-59) GFR test (Diabetes, CKD 3-4, OR last GFR 15-59) [facility] Start: 07-23-2025 [facility] Start: 07-22-2025 Referral to urologist [facility] Start: 07-20-2025 Administration of prophylactic treatment [facility] Start: 07-20-2025 Referral to general surgeon [facility] Start: 07-19-2025 Hospital admission [facility] Start: 07-19-2025 Referral to infectio us diseases physician [facility] Start: 07-19-2025 [facility] Start: 07-15-2025 Influenza vaccination Influenza Vacc ine (#1) [facility] Start: 06-14-2025 Influenza vaccination Flu vaccine (# 1) [facility] Start: 06-12-2025 End: 06-05-2026 Basic metabolic 2000 panel - Serum or Plasma Basic Metabolic Panel Lab Routine Hyponatremia Expected: 06/12/2025, Expires: 06/05/2026 [facility] Comment on above: Expected: 06/12/2025 , Expires: 06/05/2026 Start: 03-29-2025 COVID-19 Vaccine ( season) COVID-19 Vaccine ( season) [facility] Start: 12-26-2024 End: 12-26-2024 Patient encounter procedure 12/26/2024 1:45 PM EST Office Visit [facility] [address] [place] [address] Jose L Chow, PHYSIOTHERAPY ASSISTANT [address] [place] [address] [facility] Start: 11-28-2024 End: 11-28-2024 Patient encounter procedure [facility] Comment on above: Arrived Start: 11-26-2024 End: 11-26-2024 Patient encounter procedure 11/26/2024 10:30 AM EST Office Visit [facility] [address] [facility] [place] [address] Emiliano Escamilla MD [address] [facility] [address] [place] [address] Arrived [facility] Comment on above: Arrived Start: 11-14-2024 Annual Wellness Visi t (Medicare Advantage) Annual Wellness Visit (Medicare Advantage) [facility] Start: 10-03-2024 End: 10-03-2025 ECG 12 lead ECG 12 lead ECG Routine Pre-op testing Expected: 10/03/2024 (Approximate), Expires: 10/03/2025 [facility] Work Phone: Comment on above: Expected: 10/03/2024 (Approximate), Expires: 10/03/2025 Start: 10-03-2024 End: 10-03-2024 Patient encounter procedure 10/03/2024 10:45 AM EST Office Visit [facility] [address] [place] [address] Axel Hernández, [address] [place] [address] Right hand pain (Primary Dx); Arm weakness [facility] Comment on above: Right hand pain (Holly ayaan Dx); Arm weakness Start: 07-15-2024 Influenza vaccination Influenza Vacc ine (#1) [facility] Start: 07-15-2023 Influenza vaccination Influenza Vacc ine (#1) [facility] Start: 11-14-2022 Advance Directive Discussion Advance Directive Discussion [facility] Start: 11-14-2022 Depression Assessment Depression Ass essment [facility] Start: 2017 Respiratory Syncytia l Virus (RSV) or age 60 yrs+ (1 - 1-dose 75+ series) Respiratory Syncytial Virus (RSV) or age 60 yrs+ (1 - 1-dose 75+ series) [facility] Start: 03-31-2016 Pneumococcal Vaccine : 65+ (2 - PPSV23 or PCV20) Pneumococcal Vaccine: 65+ (2 - PPSV23 or PCV20) [facility] Start: 03-31-2016 Pneumococcal Vaccine : 65+ Years (2 of 2 - PPSV23 or PCV20) Pneumococcal Vaccine: 65+ Years (2 of 2 - PPSV23 or PCV20) [facility] Start: 03-24-2016 Hepatitis B surface antibody level LDL Cholesterol [facility] Start: 09-24-2015 Hemoglobin A1c/Hemoglobin.total in Blood HbA1C [facility] Start: 08-01-2015 3 comp foot exam completed Diabetic Foot Exam [facility] Start: 07-25-2015 Hepatitis B screening Urine Albumin:Creatinine Ratio [facility] Start: 02-01-2015 Urine microalbumin profile DTaP,Tdap,Td Vaccine (1 - Tdap) [facility] Start: 10-24-2013 Shingles vaccine (2 of 3) Keyes gles vaccine (2 of 3) [facility] Start: 10-24-2013 Shingrix Vaccine (2 of 3) Keyes grix Vaccine (2 of 3) [facility] Start: 09-14-2012 Hepatitis C antibody , confirmatory test Dilated Retinal Exam [facility] Start: 2002 RSV Vaccine (1 - 1-d ose 60+ series) RSV Vaccine (1 - 1-dose 60+ series) [facility] Start: 1961 DTaP/Tdap/Td vaccine (1 - Tdap) DTaP/Tdap/Td vaccine (1 - Tdap) [facility] Start: 1960 Urine screening for protein Diabetic Alb to Cr ratio (uACR) test [facility] Start: 1954 Depression Screen Depression Screen [facility] Start: 1952 Lipid panel Lipids [facility] Start: 1942 Covid-19 Vaccine (#1) Covid-19 Vacci ne (#1) [facility] End: 06-19-2025 Baseline Routine EEG Baseline Routine EEG Neurology Routine Once for 1 Occurrences starting 06/19/2025 until 06/19/2025 [employer] Comment on above: Once for 1 Occurrenc es starting 06/19/2025 until 06/19/2025 End: 06-13-2025 Basic metabolic 2000 panel - Serum or Plasma Basic Metabolic Panel Lab Routine Tomorrow AM for 10 Occurrences starting 06/04/2025 until 06/13/2025, 1 completed [employer] Comment on above: Tomorrow AM for 10 O ccurrences starting 06/04/2025 until 06/13/2025, 1 completed Basic metabolic 2000 panel - Serum or Plasma Basic Metabolic Panel Lab Routine Lab max of 3 days, Daily, for lab use only until discontinued starting 06/18/2025, 6 completed [employer] Comment on above: Lab max of 3 days, D aily, for lab use only until discontinued starting 06/18/2025, 6 completed End: 06-25-2025 Blood count hemoglobin Hemoglobin Lab Routine Every Other Day for 3 Days starting 06/23/2025 until 06/25/2025 [employer] Comment on above: Every Other Day for 3 Days starting 06/23/2025 until 06/25/2025 CBC W Auto Different ial panel - Blood CBC auto differential Lab Routine Lab max of 3 days, Daily, for lab use only until discontinued starting 06/17/2025, 7 completed [employer] Comment on above: Lab max of 3 days, D aily, for lab use only until discontinued starting 06/17/2025, 7 completed Continuous pulse oximetry Pulse oximetry, continuous Respiratory Care Routine Every 4hr until discontinued starting 06/02/2025 [employer] Comment on above: Every 4hr until disc ontinued starting 06/02/2025 End: 06-08-2025 Electrolyte Panel Electrolyte Panel Lab Routine Every 8 Hours (Lab) for 3 Days starting 06/05/2025 until 06/08/2025, 1 completed [employer] Work Phone: Comment on above: Every 8 Hours (Lab) for 3 Days starting 06/05/2025 until 06/08/2025, 1 completed End: 06-25-2025 Electrolyte panel Electrolyte panel Lab Routine Lab max of 3 days, Every 8hr, lab use only for 3 Days starting 06/22/2025 until 06/25/2025, 2 completed [employer] Work Phone: Comment on above: Lab max of 3 days, E very 8hr, lab use only for 3 Days starting 06/22/2025 until 06/25/2025, 2 completed Glucose [Mass/volume ] in Serum or Plasma [employer] Comment on above: As Needed until disc ontinued starting 06/02/2025 4X Daily (AC & HS) u ntil discontinued starting 06/02/2025 End: 06-23-2025 Holter monitor study EEG Video Monitoring Daily Neurology Routine Lab max of 3 days, Daily, for lab use only for 5 Occurrences starting 06/19/2025 until 06/23/2025, 1 completed [employer] Comment on above: Lab max of 3 days, D aily, for lab use only for 5 Occurrences starting 06/19/2025 until 06/23/2025, 1 completed Holter monitor study EEG Video M onitoring Daily Neurology Routine 06/20/2025 6:06 PM EDT [employer] Magnesium [Mass/volu me] in Serum or Plasma Magnesium Lab Routine Lab max of 3 days, Daily, for lab use only until discontinued starting 06/23/2025, 1 completed [employer] Comment on above: Lab max of 3 days, D aily, for lab use only until discontinued starting 06/23/2025, 1 completed End: 06-23-2025 Magnesium [Mass/volume] in Serum or Plasma Magnesium Lab Routine Once for 1 Occurrences starting 06/23/2025 until 06/23/2025 [employer] Work Phone: Comment on above: Once for 1 Occurrenc es starting 06/23/2025 until 06/23/2025 Nasal Cannula Oxygen Nasal Cannu la Oxygen Respiratory Care Routine Daily until discontinued starting 06/05/2025 [facility] [employer] Comment on above: Daily until disconti nued starting 06/05/2025 Oxygen Therapy - Carly ntain SpO2: 90%; *ABLE BODIED TANKERMAN Guidelines for O2: Yes; Document: \[email or web address]\epic \EPIC_Reference\Orders\Re spiratory Care Guidelines\CPG Oxygen 2022.pdf Oxygen Therapy - Maintain SpO2: 90%; *ABLE BODIED TANKERMAN Guidelines for O2: Yes; Document: \[email or web address]\e pic\EPIC_Reference\Ord ers\Respiratory Care Guidelines\CPG Oxygen 2022.pdf Respiratory Care Routine As Needed until discontinued starting 06/17/2025 [employer] Work Phone: Comment on above: As Needed until disc ontinued starting 06/17/2025 Oxygen therapy [[facility] [place] Initiate Oxygen Therapy Protocol Respiratory Care Routine As Needed until discontinued starting 06/02/2025 [employer] Work Phone: Comment on above: As Needed until disc ontinued starting 06/02/2025 Patient Education Low-fiber diet Know your Meds [facility] Work Phone: Patient referral [facility] Work Phone: End: 06-24-2025 Platelets [#/volume] in Blood Platelet count Lab Routine Every Third Day for 3 Days starting 06/24/2025 until 06/24/2025 [employer] Comment on above: Every Third Day for 3 Days starting 06/24/2025 until 06/24/2025 Protime & INR Protime & INR La b Routine Daily until discontinued starting 06/19/2025, 4 completed [employer] Comment on above: Daily until disconti nued starting 06/19/2025, 4 completed End: 06-12-2025 Protime-INR Protime-INR Lab Routine Daily for 8 Days starting 06/05/2025 until 06/12/2025, 1 completed [employer] Comment on above: Daily for 8 Days sta rting 06/05/2025 until 06/12/2025, 1 completed End: 06-02-2025 Respiratory care evaluation only Respiratory care evaluation only Respiratory Care Routine One Time for 1 Occurrences starting 06/02/2025 until 06/02/2025 [employer] Comment on above: One Time for 1 Occur rences starting 06/02/2025 until 06/02/2025 Govind gagnon Immunizations Immunization Date Immunization Notes Care Provider Sandrita escobar 09-29-2024 influenza, high dose seasonal, preservative-free Erika Crisostomo MD Work Phone: [facility] 09-29-2024 influenza virus vaccine, unspecified formulation Axel Hernández DO Work Phone: [facility] 09-21-2023 Prevnar 20 Jada Edgard Other [facility] 08-19-2023 Covid-19, Mrna, Lnp- s, Pf,brigette-sucrose,30 Mcg/0.3ml Seasonal Erika Crisostomo MD Work Phone: [facility] 08-19-2023 Flu Shot - Documentation Purposes Only Jadaendy Rene Other [employer] Other 08-19-2023 influenza virus vaccine, unspecified formulation Edwin Garcia [facility] 08-14-2022 influenza, seasonal, injectable Jada Edgard Other [facility] 03-31-2021 Influenza, High-dose , Quadrivalent Erika Crisostomo MD Work Phone: [facility] 03-31-2015 pneumococcal conjuga te vaccine, 13 valent Jada Rene Other [facility] 08-02-2014 influenza, high dose seasonal, preservative-free Venessa Riggins RN [facility] 08-02-2014 influenza virus vaccine, unspecified formulation Venessa Riggins RN [facility] 08-29-2013 zoster vaccine, live Venessa terrell RN [facility] 08-09-2013 influenza virus vaccine, unspecified formulation Venessa Riggins RN [facility] 07-31-2012 influenza virus vaccine, unspecified formulation Venessa Riggins RN [facility] Work Phone: 03-07-2012 TD(adult) unspecifie d formulation Erika Crisostomo MD Work Phone: [facility] 03-07-2012 tetanus and diphther ia toxoids, adsorbed, preservative free, for adult use (2 Lf of tetanus toxoid and 2 Lf of diphtheria toxoid) Venessa Riggins RN [facility] Work Phone: 08-07-2011 influenza virus vaccine, unspecified formulation Venessa Riggins RN [facility] Work Phone: NEGATED: Highlighted row has not occurred!08-28-2024 influenza virus vaccine, unspecified formulation Davie Vargas [facility] [place] Payers Date Payer Category Payer Self-pay 2025 Private Health Insurance [id number] 2025 Medicaid [employer] MEDICARE A DVANTAGE [id number] 2025 Medicare HMO [employer] MEDICARE [id number] 2025 Private Health Insurance [facility] [id number] 2023 Medicare (Managed Care) [employer] [id number] 2023 Unknown [employer] [facility] Solaborate [id number] 2023-Present [address] [place] [address] [id number]. [id number] 2023 Unknown [id number] 2.16.840.1.153970.19 2023 Medicare [id number]. 1.13.159.2. [id number] 1942 Unknown [id number] 2.16.840.1.331037.3.579.2. 196 1942 Unknown [id number] 2.16.840.1.779734.3.579.2. 727 1942 Unknown [id number] 2.16.840.1.160383.3.579.2. 727 1942 Unknown [id number] 2.16.840.1.922677.3.579.2. 727 1942 Unknown [id number] 2.16.840.1.920530.3.579.2. 727 1942 Unknown [id number] 2.16.840.1.610975.3.579.2. 1259 1942 Unknown [id number] 2.16.840.1.223828.3.579.2. 125 1942 Unknown [id number] 2.16.840.1.636399.3.579.2. 1258 1942 Unknown [id number] 2.16.840.1.913277.3.579.2. 1258 1942 Unknown [id number] 2.16.840.1.206841.3.579.2. 1258 1942 Unknown [id number] 2.16.840.1.400727.3.579.2. 1258 1942 Unknown [id number] 2.16.840.1.410407.3.579.2. 1258 1942 Unknown [id number] 2.16.840.1.498884.3.579.2. 1258 1942 Unknown [id number] 2.16.840.1.530665.3.579.2. 1258 1942 Unknown [id number] 2.16.840.1.449097.3.579.2. 1942 Unknown [id number] 2.16.840.1.332513.3.579.2. 1942 Unknown [id number] 2.16.840.1.349062.3.579.2. 1942 Unknown [id number] 2.16.840.1.932619.3.579.2. 1942 Unknown [id number] 2.16.840.1.742335.3.579.2. 1942 Unknown [id number] 2.16.840.1.360897.3.579.2. 1942 Unknown [id number] 2.16.840.1.242640.3.579.2. 1942 Unknown [id number] 2.16.840.1.085626.3.579.2. 1942 Unknown [id number] 2.16.840.1.545698.3.579.2. 727 1942 Unknown [id number] 2.16.840.1.162856.3.579.2. 1942 Unknown [id number] 2.16.840.1.871040.3.579.2. 72 1942 Unknown [id number] 2.16.840.1.704669.3.579.2. 1942 Unknown [id number] 2.16.840.1.702433.3.579.2. 1942 Unknown [id number] 2.16.840.1.831125.3.579.2. 1942 Unknown [id number] 2.16.840.1.130188.3.579.2. 1942 Unknown [id number] 2.16.840.1.958686.3.579.2. 1942 Unknown [id number] 2.16.840.1.030667.3.579.2. 1942 Unknown [id number] 2.16.840.1.315520.3.579.2. 175 1942 Unknown [id number] 2.16.840.1.602459.3.579.2. 1942 Unknown [id number] 2.16.840.1.436056.3.579.2. 1942 Unknown [id number] 2.16.840.1.998456.3.579.2. 1942 Unknown [id number] 2.16.840.1.100444.3.579.2. 1942 Unknown [id number] 2.16.840.1.528951.3.579.2. 72 1942 Unknown [id number] 2.16.840.1.040135.3.579.2 1942 Unknown [id number] 2.16.840.1.336656.3.579.2. 1942 Unknown [id number] 2.16.840.1.231814.3.579.2. 1942 Unknown [id number] 2.16.840.1.021179.3.579.2. 1942 Unknown [id number] 2.16.840.1.019284.3.579.2. 1942 Unknown [id number] 2.16.840.1.081716.3.579.2. 1942 Unknown [id number] 2.16.840.1.605581.3.579.2. 1942 Unknown [id number] 2.16.840.1.052291.3.579.2. 1942 Unknown [id number] 2.16.840.1.862295.3.579.2. 1942 Unknown [id number] 2.16.840.1.832495.3.579.2. 1942 Unknown [id number] 2.16.840.1.907698.3.579.2. 1942 Unknown [id number] 2.16.840.1.636685.3.579.2. 1942 Unknown [id number] 2.16.840.1.161328.3.579.2. 1942 Unknown [id number] 2.16.840.1.044015.3.579.2. 1942 Unknown [id number] 2.16.840.1.771041.3.579.2. 1942 Unknown [id number] 2.16.840.1.757859.3.579.2. 1942 Unknown [id number] 2.16.840.1.008842.3.579.2. 727 1942 Unknown [id number] 2.16.840.1.293461.3.579.2. 727 1942 Unknown [id number] 2.16.840.1.357407.3.579.2. 727 1942 Unknown [id number] 2.16.840.1.221893.3.579.2. 727 Medicare [id number] 2.16.840.1.173254.19 Medicare [id number] 2.16.840.1.519939.19 Unknown [id number] 2.840.1.641178.3.579.2. 531 Social History Date Type Detail Facility Start: 06-20-2024 End: 11-28-2024 Sex Assigned At [facility] Start: 12-01-2023 End: 07-22-2025 Tobacco smoking status CTIS Never smoked tobacco [facility] Comment on above: denies use. Start: 06-28-2022 Alcohol intake Current drinke r of alcohol (finding) [facility] Start: 06-28-2022 End: 11-28-2024 Alcohol intake [facility] Start: 1940 Sex Assigned At Not on file C [facility] Tobacco smoking status Never [facility] [place] Comment on above: denies use. Start: 02-15-2024 End: 06-17-2025 Tobacco use and exposure Smokeless tobacco non-user [facility] Sexual O[facility] Start: 03-27-2015 End: 08-22-2023 Sex Male (finding) [facility] Start: 06-02-2025 Alcoholic beverage intake Lifetime non-drinker (finding) [employer] Has the [employer], [employer], or water [employer] threatened to shut off services in your home in past 12Mo No [employer] (I/We) worried mary er (my/our) food would run out before (I/we) got money to buy more. Never true [facility] [employer] Start: 06-17-2025 Alcoholic beverage intake Ex-drinker (finding) [facility] How often to you hav e a drink containing alcohol? Never [facility] Start: 1940 Sex Assigned At Male F [facility] Start: 07-22-2025 SDOH Follow up SDOH Follow up [facility] Work Phone: Medical Equipment Procedure Code Equipment [...] Evaluation of progress towards goal: Home with [facility] Functional Status Date Assessment Result Facility 06-17-2025 Total score [AUDIT-C] 0 06/17/20 25 4:54 PM EDT Monico Cuellar, ERIN [facility] 10-30-2024 Functional Status No [facility] 08-28-2024 Functional Status N/A [facility] [place] 06-11-2024 Functional Status N/A [facility] 05-30-2024 Functional Status No [facility] 04-20-2024 Functional Status N/A [facility] 03-06-2024 Functional Status No [facility]iesmanager[facility] Mental Status Date Assessment Result [facility] Adviesmanager.nlt h System Clinical Notes 03-10-2010 to 07-25-2025 [...] these instructions at home: Medicines ??? Take sqet-wee-upeyvgb and prescription medicines only as told by [...] away. Get medica (more content not included)... 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 Biking. ? Swimming. Medicines ??? Take bmoe-xwu-znmwfmm and prescription medicines only as told by your doctor. ??? Avoid taking control pills. Talk to your doctor about the risks of taking control pills if: ? You are over 35 years old. ? You smoke. ? You get very bad headaches. ? You have had a blood clot. Where to find more information ??? [place] [employer]: www.strokeassociation.org Get help right away [...] what people say. ? (more content not included)...[facility]08-21-2025 Note Patient Education Nephrology Hyponatremia Hyponatremia is [...] Follow these instructions at home: ??? Take wiww-ihg-ekkbxak and prescription medicines only as told by [...] provider. Document Revised: 05/11/2022 Document Reviewed: 05/11/2022 [employer] Patient Education ? 2023 [employer] 06-23-2025 Nurse Note* Debra Huggins RN - 06/23/2025 3:01 PM EDT [facility]. Report called and questions addressed. PIV and tele discontinued. All personal belongings packed and left with patient. Report given to transport as well. No other concerns at this time. Left on stretcher [facility]08-10-2025 Nurse Note* Debra Huggins RN - 06/23/2025 3:01 PM EDT [facility] at [facility]. Report called and [...] Notified ofQT from EKG done 06/17 at [place]. [facility] Plan of care note * Plan of Care - Debra Huggins RN - 06/23/2025 11:02 AM EDT Problem: Pain Goal: Patient goal is pain score less than 4, able to rest, and participant in treatment plan as appropriate Description: INTERVENTIONS: 1. Encourage patient or legal billing representative to report early pain and ask [...] per policy 9. Teach patient or legal billing representative interventions for comforting Outcome: Adequate for [...] at the bedside 7. Instruct patient/ patient billing representative about use of safety devices 8. Include patient/ patient billing representative in decisions related to safety Outcome: [...] hygiene technique. 7. Identify and instruct patient/patient billing representative in use of appropriate isolation precautionsfor identified infection/symptoms. 8. Provide and discuss with patient/patient billing representative on educational MDRO sheet. 9. Encourage and monitor nutritional status daily and consult electromechanical engineer if indicated. 10. Implement neutropenic guidelines as needed. Outcome: Adequate for Discharge Problem: Knowledge Deficit Goal: Patient/patient billing representative demonstrates understanding of disease process, treatment plan,medications, [...] supplement as ordered 13. Collaborate with clinical electromechanical engineer 14. Include patient/ patient's billing representative in decisions related to nutrition Outcome: [...] develop effective communication strategies 4. Include patient/patient billing representative in decisions related to communication Outcome: [...] Collaborate with ancillary departments 14. Include patient/patient billing representative in decisions related to anxiety Outcome: [...] care 6. Collaborate with pastoral/spiritual care, social media developer, mental health counselor as needed. 7. Instruct patient on diversional activities such as physical activity, distraction, and deep breathing exercises to assist with coping 8. Involve patient's billing representative in care Outcome: Adequate for Discharge [...] Score of =/> 25 or indicated by [facility] Assessment Goal: Patient should be free from fall Description: Interventions: 1. [place] to environment 2. Hourly rounds addressing the [...] non-skid footwear 11. Teach patient and patient billing representative to maintain environment for safety and [...] (cane, walker) within reach 19. Request patient billing representative bring adaptive equipment/mobility aids from home or obtain and provide as needed 20. Consult pharmacy regarding effects of med's affecting mobility, cognition, and alternatives 21. Obtain physician order for PT if risk factors associated with mobility are present 22. Obtain physician order for OT as appropriate 23. Utilize diversional activities 24. Educate patient and patient billing representative how to maintain a safe environment during visitationtimes (notify nurse prior to leaving bedside) 25. Consider appropriateness of medical or non-medical assembler 26. Set up voiding schedule as appropriate (every 2 hours) Outcome: Adequate for Discharge [facility]08-10-2025 Miscellaneous Notes* Plan of Care - Debra Huggins RN - 06/23/2025 11:02 AM EDT Problem: Pain Goal: Patient goal is pain score less than 4, able to rest, and participant in treatment plan as appropriate Description: INTERVENTIONS: 1. Encourage patient or legal billing representative to report early pain and ask [...] per policy 9. Teach patient or legal billing representative interventions for comforting Outcome: Adequate for [...] at the bedside 7. Instruct patient/ patient billing representative about use of safety devices 8. Include patient/ patient billing representative in decisions related to safety Outcome: [...] hygiene technique. 7. Identify and instruct patient/patient billing representative in use of appropriate isolation precautionsfor identified infection/symptoms. 8. Provide and discuss with patient/patient billing representative on educational MDRO sheet. 9. Encourage and monitor nutritional status daily and consult electromechanical engineer if indicated. 10. Implement neutropenic guidelines as needed. Outcome: Adequate for Discharge Problem: Knowledge Deficit Goal: Patient/patient billing representative demonstrates understanding of disease process, treatment plan,medications, [...] supplement as ordered 13. Collaborate with clinical electromechanical engineer 14. Include patient/ patient's billing representative in decisions related to nutrition Outcome: [...] develop effective communication strategies 4. Include patient/patient billing representative in decisions related to communication Outcome: [...] Collaborate with ancillary departments 14. Include patient/patient billing representative in decisions related to anxiety Outcome: [...] care 6. Collaborate with pastoral/spiritual care, social media developer, mental health counselor as needed. 7. Instruct patient on diversional activities such as physical activity, distraction, and deep breathing exercises to assist with coping 8. Involve patient's billing representative in care Outcome: Adequate for Discharge [...] Score of =/> 25 or indicated by [facility] Assessment Goal: Patient should be free from fall Description: Interventions: 1. [place] to environment 2. Hourly rounds addressing the [...] non-skid footwear 11. Teach patient and patient billing representative to maintain environment for safety and [...] (cane, walker) within reach 19. Request patient billing representative bring adaptive equipment/mobility aids from home or obtain and provide as needed 20. Consult pharmacy regarding effects of med's affecting mobility, cognition, and alternatives 21. Obtain physician order for PT if risk factors associated with mobility are present 22. Obtain physician order for OT as appropriate 23. Utilize diversional activities 24. Educate patient and patient billing representative how to maintain a safe environment during visitationtimes (notify nurse prior to leaving bedside) 25. Consider appropriateness of medical or non-medical assembler 26. Set up voiding schedule as appropriate (every 2 hours) Outcome: Adequate for Discharge * Discharge Planning Note - Hellen Brady - 06/23/2025 10:54 AM EDT DISCHARGE PLANNING NOTE BLS via PTN scheduled for today 06/23/25 at 1 PM to [facility]. Confirmed in [facility]. * Discharge Planning Note - CHARLES Lee - 06/23/2025 10:39 AM EDT DISCHARGE PLANNING NOTE Discharge written, CRF complete. Social work task [facility] to arrange BLS transport- wait confirmed time. [facility] notified of discharge and CRF sent. HENS [...] Description: INTERVENTIONS: 1. Encourage patient or legal billing representative to report early pain and ask [...] per policy 9. Teach patient or legal billing representative interventions for comforting [id number] by ERIN Mcmanus [...] at the bedside 7. Instruct patient/ patient billing representative about use of safety devices 8. Include patient/ patient billing representative in decisions related to safety Outcome: [...] hygiene technique. 7. Identify and instruct patient/patient billing representative in use of appropriate isolation precautionsfor identified infection/symptoms. 8. Provide and discuss with patient/patient billing representative on educational MDRO sheet. 9. Encourage and monitor nutritional status daily and consult electromechanical engineer if indicated. 10. Implement neutropenic guidelines as needed. Outcome: Progressing Note: Evaluation of progress towards goal: Standard precaution maintained Problem: Knowledge Deficit Goal: Patient/patient billing representative demonstrates understanding of disease process, treatment plan,medications, [...] supplement as ordered 13. Collaborate with clinical electromechanical engineer 14. Include patient/ patient's billing representative in decisions related to nutrition Outcome: [...] develop effective communication strategies 4. Include patient/patient billing representative in decisions related to communication Outcome: [...] Collaborate with ancillary departments 14. Include patient/patient billing representative in decisions related to anxiety Outcome: [...] care 6. Collaborate with pastoral/spiritual care, social media developer, mental health counselor as needed. 7. Instruct patient on diversional activities such as physical activity, distraction, and deep breathing exercises to assist with coping 8. Involve patient's billing representative in care Outcome: Progressing Note: Evaluation [...] Score of =/> 25 or indicated by [facility] Assessment Goal: Patient should be free from fall Description: Interventions: 1. [place] to environment 2. Hourly rounds addressing the [...] non-skid footwear 11. Teach patient and patient billing representative to maintain environment for safety and [...] (cane, walker) within reach 19. Request patient billing representative bring adaptive equipment/mobility aids from home or obtain and provide as needed 20. Consult pharmacy regarding effects of med's affecting mobility, cognition, and alternatives 21. Obtain physician order for PT if risk factors associated with mobility are present 22. Obtain physician order for OT as appropriate 23. Utilize diversional activities 24. Educate patient and patient billing representative how to maintain a safe environment during visitationtimes (notify nurse prior to leaving bedside) 25. Consider appropriateness of medical or non-medical assembler 26. Set up voiding schedule as appropriate (every 2 hours) Outcome: Progressing Note: Evaluation of progress towards goal: Fall bundles maintained * Plan of Care - Debra Huggins RN - 06/22/2025 2:18 PM EDT Problem: Pain Goal: Patient goal is pain score less than 4, able to rest, and participant in treatment plan as appropriate Description: INTERVENTIONS: 1. Encourage patient or legal billing representative to report early pain and ask [...] per policy 9. Teach patient or legal billing representative interventions for comforting Outcome: Progressing Note: [...] at the bedside 7. Instruct patient/ patient billing representative about use of safety devices 8. Include patient/ patient billing representative in decisions related to safety Outcome: [...] hygiene technique. 7. Identify and instruct patient/patient billing representative in use of appropriate isolation precautionsfor identified infection/symptoms. 8. Provide and discuss with patient/patient billing representative on educational MDRO sheet. 9. Encourage and monitor nutritional status daily and consult electromechanical engineer if indicated. 10. Implement neutropenic guidelines as needed. Outcome: Progressing Note: Evaluation of progress towards goal: continue to monitor labs, vitals, tele, IV site Problem: Knowledge Deficit Goal: Patient/patient billing representative demonstrates understanding of disease process, treatment plan,medications, [...] supplement as ordered 13. Collaborate with clinical electromechanical engineer 14. Include patient/ patient's billing representative in decisions related to nutrition Outcome: [...] develop effective communication strategies 4. Include patient/patient billing representative in decisions related to communication Outcome: Progressing Note: Evaluation of progress towards goal: [place], speak loudly and understands Problem: Potential for [...] Collaborate with ancillary departments 14. Include patient/patient billing representative in decisions related to anxiety Outcome: [...] care 6. Collaborate with pastoral/spiritual care, social media developer, mental health counselor as needed. 7. Instruct patient on diversional activities such as physical activity, distraction, and deep breathing exercises to assist with coping 8. Involve patient's billing representative in care Outcome: Progressing Note: Evaluation [...] Progressing Note: Evaluation of progress towards goal: [facility] [place] Problem: Moderate - High Risk Fall Score Description: [place] Fall Score of =/> 25 or indicated by [facility] Assessment Goal: Patient should be free from fall Description: Interventions: 1. O'Neals to environment 2. Hourly rounds addressing the [...] non-skid footwear 11. Teach patient and patient billing representative to maintain environment for safety and [...] (cane, walker) within reach 19. Request patient billing representative bring adaptive equipment/mobility aids from home or obtain and provide as needed 20. Consult pharmacy regarding effects of med's affecting mobility, cognition, and alternatives 21. Obtain physician order for PT if risk factors associated with mobility are present 22. Obtain physician order for OT as appropriate 23. Utilize diversional activities 24. Educate patient and patient billing representative how to maintain a safe environment during visitationtimes (notify nurse prior to leaving bedside) 25. Consider appropriateness of medical or non-medical assembler 26. Set up voiding schedule as appropriate (every 2 hours) Outcome: Progressing Note: Evaluation of progress towards goal: no falls; syncopal episode per notes 06/21; up with assistonly; high fall risk - maintain precautions * Discharge Planning Note - Norma Ritter - 06/22/2025 12:42 PM EDT DISCHARGE PLANNING NOTE Prior Auth approved for admission to : [facility] (P# [phone] ; F# ) Approval # [id number] Valid for Dates: 06/22/2025 - 06/28/2025 * Discharge Planning Note - Norma Ritter - 06/22/2025 10:39 AM EDT DISCHARGE PLANNING NOTE Prior auth submitted to: [employer] Via: [employer] On behalf of : [facility] (P# ; F# ) Ref# [id number] * Discharge Planning Note - CHARLES Lee - 06/22/2025 10:15 AM EDT DISCHARGE PLANNING NOTE Case discussed in daily transition rounds and chart reviewed by CN. Discharge Plan remains: [facility] [place]. [facility] accepting referral. Social work contacted to inform of above and she was pleased with the news. is looking for patient's SSN. Social work task [facility] to start precert. CN will continue to follow and is available should any further needs arise. - CHARLES LEE 06/22/25 10:15 AM Insurance approved SNF stay. Patient is tentatively discharged tomorrow. [facility] work [facility] inform [facility] discharge date. Social [...] Description: INTERVENTIONS: 1. Encourage patient or legal billing representative to report early pain and ask [...] per policy 9. Teach patient or legal billing representative interventions for comforting Outcome: Progressing Note: [...] at the bedside 7. Instruct patient/ patient billing representative about use of safety devices 8. Include patient/ patient billing representative in decisions related to safety Outcome: [...] hygiene technique. 7. Identify and instruct patient/patient billing representative in use of appropriate isolation precautionsfor identified infection/symptoms. 8. Provide and discuss with patient/patient billing representative on educational MDRO sheet. 9. Encourage and monitor nutritional status daily and consult electromechanical engineer if indicated. 10. Implement neutropenic guidelines as needed. Outcome: Progressing Note: Evaluation of progress towards goal: Pt has no s/s of infection, standard precaution maintained Problem: Knowledge Deficit Goal: Patient/patient billing representative demonstrates understanding of disease process, treatment plan,medications, [...] supplement as ordered 13. Collaborate with clinical electromechanical engineer 14. Include patient/ patient's billing representative in decisions related to nutrition Outcome: [...] develop effective communication strategies 4. Include patient/patient billing representative in decisions related to communication Outcome: [...] Collaborate with ancillary departments 14. Include patient/patient billing representative in decisions related to anxiety Outcome: [...] care 6. Collaborate with pastoral/spiritual care, social media developer, mental health counselor as needed. 7. Instruct patient on diversional activities such as physical activity, distraction, and deep breathing exercises to assist with coping 8. Involve patient's billing representative in care Outcome: Progressing Note: Evaluation [...] Moderate - High Risk Fall Score Description: [place] Fall Score of =/> 25 or indicated by [facility] Assessment Goal: Patient should be free from fall Description: Interventions: 1. [place] to environment 2. Hourly rounds addressing the [...] non-skid footwear 11. Teach patient and patient billing representative to maintain environment for safety and [...] (cane, walker) within reach 19. Request patient billing representative bring adaptive equipment/mobility aids from home or obtain and provide as needed 20. Consult pharmacy regarding effects of med's affecting mobility, cognition, and alternatives 21. Obtain physician order for PT if risk factors associated with mobility are present 22. Obtain physician order for OT as appropriate 23. Utilize diversional activities 24. Educate patient and patient billing representative how to maintain a safe environment during visitationtimes (notify nurse prior to leaving bedside) 25. Consider appropriateness of medical or non-medical assembler 26. Set up voiding schedule as appropriate (every 2 hours) Outcome: Progressing Note: Evaluation of progress towards goal: Fall bundles maintained * Plan of Care - Lauren Gaona RN - 06/21/2025 6:18 PM EDT Problem: Knowledge Deficit Goal: Patient/patient billing representative demonstrates understanding of disease process, treatment plan,medications, [...] for adl's Problem: Knowledge Deficit Goal: Patient/patient billing representative demonstrates understanding of disease process, treatment plan,medications, [...] Description: INTERVENTIONS: 1. Encourage patient or legal billing representative to report early pain and ask [...] per policy 9. Teach patient or legal billing representative interventions for comforting Outcome: Progressing Note: [...] at the bedside 7. Instruct patient/ patient billing representative about use of safety devices 8. Include patient/ patient billing representative in decisions related to safety Outcome: [...] hygiene technique. 7. Identify and instruct patient/patient billing representative in use of appropriate isolation precautionsfor identified infection/symptoms. 8. Provide and discuss with patient/patient billing representative on educational MDRO sheet. 9. Encourage and monitor nutritional status daily and consult electromechanical engineer if indicated. 10. Implement neutropenic guidelines as [...] supplement as ordered 13. Collaborate with clinical electromechanical engineer 14. Include patient/ patient's billing representative in decisions related to nutrition Outcome: [...] develop effective communication strategies 4. Include patient/patient billing representative in decisions related to communication Outcome: [...] Collaborate with ancillary departments 14. Include patient/patient billing representative in decisions related to anxiety Outcome: [...] care 6. Collaborate with pastoral/spiritual care, social media developer, mental health counselor as needed. 7. Instruct patient on diversional activities such as physical activity, distraction, and deep breathing exercises to assist with coping 8. Involve patient's billing representative in care Outcome: Progressing Note: Evaluation [...] Score of =/> 25 or indicated by [facility] Assessment Goal: Patient should be free from fall Description: Interventions: 1. [place] to environment 2. Hourly rounds addressing the [...] non-skid footwear 11. Teach patient and patient billing representative to maintain environment for safety and [...] (cane, walker) within reach 19. Request patient billing representative bring adaptive equipment/mobility aids from home or obtain and provide as needed 20. Consult pharmacy regarding effects of med's affecting mobility, cognition, and alternatives 21. Obtain physician order for PT if risk factors associated with mobility are present 22. Obtain physician order for OT as appropriate 23. Utilize diversional activities 24. Educate patient and patient billing representative how to maintain a safe environment during visitationtimes (notify nurse prior to leaving bedside) 25. Consider appropriateness of medical or non-medical assembler 26. Set up voiding schedule as appropriate [...] Description: INTERVENTIONS: 1. Encourage patient or legal billing representative to report early pain and ask [...] per policy 9. Teach patient or legal billing representative interventions for comforting Outcome: Progressing Note: [...] at the bedside 7. Instruct patient/ patient billing representative about use of safety devices 8. Include patient/ patient billing representative in decisions related to safety Outcome: [...] hygiene technique. 7. Identify and instruct patient/patient billing representative in use of appropriate isolation precautionsfor identified infection/symptoms. 8. Provide and discuss with patient/patient billing representative on educational MDRO sheet. 9. Encourage and monitor nutritional status daily and consult electromechanical engineer if indicated. 10. Implement neutropenic guidelines as [...] supplement as ordered 13. Collaborate with clinical electromechanical engineer 14. Include patient/ patient's billing representative in decisions related to nutrition Outcome: [...] develop effective communication strategies 4. Include patient/patient billing representative in decisions related to communication Outcome: [...] Collaborate with ancillary departments 14. Include patient/patient billing representative in decisions related to anxiety Outcome: [...] care 6. Collaborate with pastoral/spiritual care, social media developer, mental health counselor as needed. 7. Instruct patient on diversional activities such as physical activity, distraction, and deep breathing exercises to assist with coping 8. Involve patient's billing representative in care Outcome: Progressing Note: Evaluation [...] be free from fall Description: Interventions: 1. [place] to environment 2. Hourly rounds addressing the [...] non-skid footwear 11. Teach patient and patient billing representative to maintain environment for safety and [...] (cane, walker) within reach 19. Request patient billing representative bring adaptive equipment/mobility aids from home or obtain and provide as needed 20. Consult pharmacy regarding effects of med's affecting mobility, cognition, and alternatives 21. Obtain physician order for PT if risk factors associated with mobility are present 22. Obtain physician order for OT as appropriate 23. Utilize diversional activities 24. Educate patient and patient billing representative how to maintain a safe environment during visitationtimes (notify nurse prior to leaving bedside) 25. Consider appropriateness of medical or non-medical assembler 26. Set up voiding schedule as appropriate (every 2 hours) Outcome: Progressing Note: Evaluation of progress towards goal: free of fall this shift Problem: Pain Goal: Patient goal is pain score less than 4, able to rest, and participant in treatment plan as appropriate Description: INTERVENTIONS: 1. Encourage patient or legal billing representative to report early pain and ask [...] per policy 9. Teach patient or legal billing representative interventions for comforting Outcome: Progressing Note: [...] at the bedside 7. Instruct patient/ patient billing representative about use of safety devices 8. Include patient/ patient billing representative in decisions related to safety Outcome: [...] at the bedside 7. Instruct patient/ patient billing representative about use of safety devices 8. Include patient/ patient billing representative in decisions related to safety Outcome: [...] hygiene technique. 7. Identify and instruct patient/patient billing representative in use of appropriate isolation precautionsfor identified infection/symptoms. 8. Provide and discuss with patient/patient billing representative on educational MDRO sheet. 9. Encourage and monitor nutritional status daily and consult electromechanical engineer if indicated. 10. Implement neutropenic guidelines as [...] supplement as ordered 13. Collaborate with clinical electromechanical engineer 14. Include patient/ patient's billing representative in decisions related to nutrition Outcome: [...] develop effective communication strategies 4. Include patient/patient billing representative in decisions related to communication Outcome: [...] Collaborate with ancillary departments 14. Include patient/patient billing representative in decisions related to anxiety Outcome: [...] Score of =/> 25 or indicated by [facility] Assessment Goal: Patient should be free from fall Description: Interventions: 1. [place] to environment 2. Hourly rounds addressing the [...] non-skid footwear 11. Teach patient and patient billing representative to maintain environment for safety and [...] (cane, walker) within reach 19. Request patient billing representative bring adaptive equipment/mobility aids from home or obtain and provide as needed 20. Consult pharmacy regarding effects of med's affecting mobility, cognition, and alternatives 21. Obtain physician order for PT if risk factors associated with mobility are present 22. Obtain physician order for OT as appropriate 23. Utilize diversional activities 24. Educate patient and patient billing representative how to maintain a safe environment during visitationtimes (notify nurse prior to leaving bedside) 25. Consider appropriateness of medical or non-medical assembler 26. Set up voiding schedule as appropriate [...] care 6. Collaborate with pastoral/spiritual care, social media developer, mental health counselor as needed. 7. Instruct patient on diversional activities such as physical activity, distraction, and deep breathing exercises to assist with coping 8. Involve patient's billing representative in care Outcome: Progressing Note: Evaluation of progress towards goal: no issues * Discharge Planning Note - Martina Mckeon - 06/21/2025 3:45 PM EDT DISCHARGE PLANNING NOTE Referral sent to [facility] (P# ; F# ) * Discharge Planning [...] Disposition SNF Facility/Service Name NA SNF Name [facility] Does the patient need discharge transportation arranged? Yes Transportation Arranged Ambulance Mobility issues discussed with transportation provider Yes Patient choice offered Yes List Provided Yes [facility] List Provided [facility] Facility Financial Disclosure Provided for In-Network Referral Yes DISCHARGE PLANNING NOTE CN spoke w pts , SNF choice is [facility]. She did n ot have a 2nd choice. CN asked her to review list for dditional choices. CN tasked for referral to [facility]. Barriers: SNFaccept. Will need precert. CTbrain.Rohini Mcintyre RN * Discharge Planning Note - Rohini Mcintyre RN - 06/21/2025 12:44 PM EDT DISCHARGE PLANNING NOTE PT/OT rec SNF. CN called and left Voicemail for pts . Pt not appropriate for [facility]. Need SNF choices. CN also sent SNF list Via careport to pts cell phone to select choices. Await response. Rohini Mcintyre RN * PT/OT/DIRECTOR OF SLOT OPERATIONS - Veronica Chavezsheryl, OTR/L - 06/21/2025 9:58 [...] on coumadin and diabetic. Continue to recommend senior living facility. Patient with episode of decreased responsiveness with listing to the left while on commode for 1-2 minutes. Once alert patient was nauseated. Lauren KHAN called to room. Patient assisted from toilet mireya and MD in room. See below for past medical and past surgical history. Past Medical History: Diagnosis Date Atrial fibrillation ([facility]) BPH (benign prostatic hyperplasia) Broken nose CVA (cerebral vascular accident) ([facility]) 06/17/2025 Diabetes ([facility]) Epistaxis Hypertension Hyponatremia secondary to SIADH Hypothyroid [...] Equipment: waker, chair alarm, gait belt, telemetry. Telemetry/Art Preparator: Yes Oxygen Used: room air Other: (S) [...] Patient will perform toilet transfers with Modified [place] Dates: Start: 06/21/25 Expected End: 07/19/25 Description: [...] CVA (cerebral vascular accident) ([facility]) * PT/OT/DIRECTOR OF SLOT OPERATIONS - Ayaan Campos, PT - 06/21/2025 9:56 [...] Mobility Raw Score: 15 [facility] G Code Modifier: CK SwePASS [...] Past Medical History: Diagnosis Date Atrial fibrillation ([facility]) BPH (benign prostatic hyperplasia) Broken nose CVA (cerebral vascular accident) ([facility]) 06/17/2025 Diabetes ([facility]) Epistaxis Hypertension Hyponatremia secondary to SIADH Hypothyroid Lumbar spondylosis TIA (transient ischemic attack) Past Surgical History: Procedure Laterality Date NECK SURGERY plate in neck per Modified [place] Level of Disability: Moderately severe disability 0= [...] gait belt, wheeled walker, IV, chair/bed alarm Telemetry/Art Preparator: Yes Oxygen Used: room air Other: (S) [...] CVA (cerebral vascular accident) ([facility]) * Plan of Care - Nicole Sparks RN - 06/20/2025 11:40 PM EDT Problem: Pain Goal: Patient goal is pain score less than 4, able to rest, and participant in treatment plan as appropriate Description: INTERVENTIONS: 1. Encourage patient or legal billing representative to report early pain and ask [...] per policy 9. Teach patient or legal billing representative interventions for comforting Outcome: Progressing Note: [...] at the bedside 7. Instruct patient/ patient billing representative about use of safety devices 8. Include patient/ patient billing representative in decisions related to safety Outcome: [...] hygiene technique. 7. Identify and instruct patient/patient billing representative in use of appropriate isolation precautionsfor identified infection/symptoms. 8. Provide and discuss with patient/patient billing representative on educational MDRO sheet. 9. Encourage and monitor nutritional status daily and consult electromechanical engineer if indicated. 10. Implement neutropenic guidelines as needed. Outcome: Progressing Note: Evaluation of progress towards goal: No s/s of infection at this time Problem: Knowledge Deficit Goal: Patient/patient billing representative demonstrates understanding of disease process, treatment plan,medications, [...] Score of =/> 25 or indicated by [facility] Assessment Goal: Patient should be free from fall Description: Interventions: 1. O'Neals to environment 2. Hourly rounds addressing the [...] non-skid footwear 11. Teach patient and patient billing representative to maintain environment for safety and [...] (cane, walker) within reach 19. Request patient billing representative bring adaptive equipment/mobility aids from home or obtain and provide as needed 20. Consult pharmacy regarding effects of med's affecting mobility, cognition, and alternatives 21. Obtain physician order for PT if risk factors associated with mobility are present 22. Obtain physician order for OT as appropriate 23. Utilize diversional activities 24. Educate patient and patient billing representative how to maintain a safe environment during visitationtimes (notify nurse prior to leaving bedside) 25. Consider appropriateness of medical or non-medical assembler 26. Set up voiding schedule as appropriate (every 2 hours) Outcome: Progressing Note: Evaluation of progress towards goal: pt free from fall at this time Problem: Knowledge Deficit Goal: Patient/patient billing representative demonstrates understanding of disease process, treatment plan,medications, [...] will need updated PT/OT notes sent to [facility]. When pt/ot worked w him yesterday they [...] received a voice mail from Franc at [facility] phone [phone], she says she has left a few messages for an update for patient. This is the only vm I have received. Sending an watAgame chat to Rohini / Vivienne / Mesha with information * Plan of Care - Nicole Sparks RN - 06/19/2025 11:13 PM EDT Problem: Pain Goal: Patient goal is pain score less than 4, able to rest, and participant in treatment plan as appropriate Description: INTERVENTIONS: 1. Encourage patient or legal billing representative to report early pain and ask [...] per policy 9. Teach patient or legal billing representative interventions for comforting Outcome: Progressing Note: [...] at the bedside 7. Instruct patient/ patient billing representative about use of safety devices 8. Include patient/ patient billing representative in decisions related to safety Outcome: [...] hygiene technique. 7. Identify and instruct patient/patient billing representative in use of appropriate isolation precautionsfor identified infection/symptoms. 8. Provide and discuss with patient/patient billing representative on educational MDRO sheet. 9. Encourage and monitor nutritional status daily and consult electromechanical engineer if indicated. 10. Implement neutropenic guidelines as [...] supplement as ordered 13. Collaborate with clinical electromechanical engineer 14. Include patient/ patient's billing representative in decisions related to nutrition Outcome: [...] Score of =/> 25 or indicated by [facility] Assessment Goal: Patient should be free from fall Description: Interventions: 1. O'Neals to environment 2. Hourly rounds addressing the [...] non-skid footwear 11. Teach patient and patient billing representative to maintain environment for safety and [...] (cane, walker) within reach 19. Request patient billing representative bring adaptive equipment/mobility aids from home or obtain and provide as needed 20. Consult pharmacy regarding effects of med's affecting mobility, cognition, and alternatives 21. Obtain physician order for PT if risk factors associated with mobility are present 22. Obtain physician order for OT as appropriate 23. Utilize diversional activities 24. Educate patient and patient billing representative how to maintain a safe environment during visitationtimes (notify nurse prior to leaving bedside) 25. Consider appropriateness of medical or non-medical assembler 26. Set up voiding schedule as appropriate (every 2 hours) Outcome: Progressing Note: Evaluation of progress towards goal: pt free from fall at this time safety measures in place * PT/OT/DIRECTOR OF SLOT OPERATIONS - Ayaan Campos, PT - 06/19/2025 2:49 [...] Mobility Raw Score: 6 [facility] G Code Modifier: CN SwePASS [...] P1/P2 occlusion. TNK given and transfer to [facility]. On arrival, NIHSS = 0 CT perfusion [...] Past Medical History: Diagnosis Date Atrial fibrillation ([facility]) BPH (benign prostatic hyperplasia) Broken nose CVA (cerebral vascular accident) ([facility]) 06/17/2025 Diabetes ([facility]) Epistaxis Hypertension Hyponatremia secondary to SIADH Hypothyroid Lumbar spondylosis TIA (transient ischemic attack) Past Surgical History: Procedure Laterality Date NECK SURGERY plate in neck per Modified [place] Level of Disability: Severe disability 0= No [...] tolerated Equipment: repositioning sling, IV, bed alarm Telemetry/Art Preparator: Yes Oxygen Used: room air Other: high [...] with rails Stairs to Enter: 2 from graphics software engineer Rails: Right Stairs in Home: 0 Bathroom Shower/Tub: Walk-in shower Bathroom Toilet: Standard Home Equipment: Rolling walker Other : Home info from EMR review of recent therapy eval at [facility] - pt not able to answer questionsthis date and no family present. 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) * PT/OT/DIRECTOR OF SLOT OPERATIONS - Veronica Rivera OTR/L - 06/19/2025 2:48 [...] Activity Raw Score: 12 [facility] G Code Modifier: CL Modifed [...] Past Medical History: Diagnosis Date Atrial fibrillation ([facility]) BPH (benign prostatic hyperplasia) Broken nose CVA (cerebral vascular accident) ([facility]) 06/17/2025 Diabetes ([facility]) Epistaxis Hypertension Hyponatremia secondary to SIADH Hypothyroid [...] per early mobility guidelines. Equipment: telemetry, IV Telemetry/Art Preparator: Yes Oxygen Used: room air Other: fall [...] CVA (cerebral vascular accident) ([facility]) * Discharge Planning Note - [...] Home with home health services Facility/Service Name [facility] Case discussed in daily transition rounds and chart reviewed by CN. Barriers to discharge include PT/OT, PMR to see, Discharge Plan remains: Home with HHC vs IPR. [facility] will accept. [facility]- will need PT/OT notes as soon as [...] Description: INTERVENTIONS: 1. Encourage patient or legal billing representative to report early pain and ask [...] per policy 9. Teach patient or legal billing representative interventions for comforting Outcome: Progressing Note: [...] at the bedside 7. Instruct patient/ patient billing representative about use of safety devices 8. Include patient/ patient billing representative in decisions related to safety Outcome: [...] hygiene technique. 7. Identify and instruct patient/patient billing representative in use of appropriate isolation precautionsfor identified infection/symptoms. 8. Provide and discuss with patient/patient billing representative on educational MDRO sheet. 9. Encourage and monitor nutritional status daily and consult electromechanical engineer if indicated. 10. Implement neutropenic guidelines as needed. Outcome: Progressing Note: Evaluation of progress towards goal: Pt should remain free from infection during this shift. Standard precautions used during care. Problem: Knowledge Deficit Goal: Patient/patient billing representative demonstrates understanding of disease process, treatment plan,medications, [...] Score of =/> 25 or indicated by [facility] Assessment Goal: Patient should be free from fall Description: Interventions: 1. O'Neals to environment 2. Hourly rounds addressing the [...] non-skid footwear 11. Teach patient and patient billing representative to maintain environment for safety and [...] (cane, walker) within reach 19. Request patient billing representative bring adaptive equipment/mobility aids from home or obtain and provide as needed 20. Consult pharmacy regarding effects of med's affecting mobility, cognition, and alternatives 21. Obtain physician order for PT if risk factors associated with mobility are present 22. Obtain physician order for OT as appropriate 23. Utilize diversional activities 24. Educate patient and patient billing representative how to maintain a safe environment during visitationtimes (notify nurse prior to leaving bedside) 25. Consider appropriateness of medical or non-medical assembler 26. Set up voiding schedule as appropriate [...] EDT DISCHARGE PLANNING NOTE Referral sent to [facility] in [place] (P# ; F# ) * Discharge Planning Note - Brianna Verduzco - 06/18/2025 1:04 PM EDT DISCHARGE PLANNING NOTE Referral sent to. [facility] in [place], [place] (P# ; F# ) * Discharge [...] Acute rehab, Home with home health services [place] Worker met with patient, introduced self, and explained role. Patient educated on safe discharge plan. Pt admitted 06/17/2025 with CVA (cerebral vascular accident) (CMS-HCC) [I63.9] per chart review. Consults: Neurology Discharge Barriers per Daily Transition Rounds and chart review: PT/OT, s/p TNK- bedrest, MRi, echo. Past Medical History: Diagnosis Date Atrial fibrillation ([facility]) BPH (benign prostatic hyperplasia) Broken nose CVA (cerebral vascular accident) ([facility]) 06/17/2025 Diabetes ([facility]) Epistaxis Hypertension Hyponatremia secondary to SIADH Hypothyroid [...] patient to appointments, shopping and assisting with internet marketing manager. Caregiver's personal limitations include Patient's feels she [...] vs acute rehab. PCP: TANYA Lozano Pharmacy: [facility] PCP and pharmacy confirmed with patient. CN offered to assist with follow up appointment arrangements; . TANYA Lozano added to Follow Up Providers for Summary of Care communication. Per patient self-report: Drug use: denies Smoking: denies ETOH Use: rarely Current discharge plan is: Home with [facility] vs acute rehab pending PT/OT eval. CN spoke with patient'swife she has used [facility] in past. Tasked to send referrals to [facility] and to [facility]. Services Requested: Services Requested Patient expects to [...] Evaluation of progress towards goal: Home with [facility] Autogenerated Goal Will continue to follow as plan of care develops. CN discussed benefits and importance of medication compliance and follow ups. Please feel free to reach out for any discharge planning questions. - Dawson Yost RN 06/18/25 12:24 PM * PT/OT/DIRECTOR OF SLOT OPERATIONS - Zaire Sierra CCC-DIRECTOR OF SLOT OPERATIONS - 06/18/2025 10:35 AM EDT Speech Therapy Evaluation Bedside Swallow/Feeding Evaluation Speech & Language Cognitive Evaluation Discharge Recommendations for Safe Patient Transition DIRECTOR OF SLOT OPERATIONS Post Discharge Therapy Recommendations: Continue ST services [...] decline resulting from CVA. Prognosis Services: Skilled DIRECTOR OF SLOT OPERATIONS services to address above deficits Prognosis/Potential: Good Considerations: Age, Cognition Discharge Recommendations for Safe Patient Transition DIRECTOR OF SLOT OPERATIONS Post Discharge Therapy Recommendations: Continue ST services [...] should be further evaluated. Prognosis Services: Skilled DIRECTOR OF SLOT OPERATIONS services to address the above deficits Prognosis/Potential: [...] Dysphagia Problem: Swallowing Dates: Start: 06/18/25 Disciplines: DIRECTOR OF SLOT OPERATIONS Goal: STG: Patient will complete safety strategies independently during PO intake 90% of the time Dates: Start: 06/18/25 Expected End: 07/22/25 Disciplines: DIRECTOR OF SLOT OPERATIONS Template: ST - Rehab Speech Problem: Auditory Comprehension Dates: Start: 06/18/25 Disciplines: DIRECTOR OF SLOT OPERATIONS Goal: LTG: Patient will comprehend communication related to basic medical and social needs and utilize compensatory strategies to maintain safety in a functional living environment Dates: Start: 06/18/25 Expected End: 07/22/25 Disciplines: DIRECTOR OF SLOT OPERATIONS Goal: STG: Patient will answer simple yes/no questions with 90% accuracy with minimal cueing. Dates: Start: 06/18/25 Expected End: 07/22/25 Disciplines: DIRECTOR OF SLOT OPERATIONS Goal: STG: Patient will answer complex yes/no questions with 90% accuracy with minimal cueing Dates: Start: 06/18/25 Expected End: 07/22/25 Disciplines: DIRECTOR OF SLOT OPERATIONS Problem: Verbal Expression Dates: Start: 06/18/25 Disciplines: DIRECTOR OF SLOT OPERATIONS Goal: LTG: Patient will utilize compensatory strategies to communicate wants and needs effectively to different conversational partners, maintain safety and participate socially in a functional living environment Dates: Start: 06/18/25 Expected End: 07/22/25 Disciplines: DIRECTOR OF SLOT OPERATIONS Goal: STG: Patient will complete simple to complex divergent and convergent naming tasks with 90% accuracy with minimal cueing to improve thought organization Dates: Start: 06/18/25 Expected End: 07/22/25 Disciplines: DIRECTOR OF SLOT OPERATIONS Goal: STG: Patient will use word retrieval strategies during structured interactions to improve functional communication during activities of daily living with 90% accuracy with minimal cueing Dates: Start: 06/18/25 Expected End: 07/22/25 Disciplines: DIRECTOR OF SLOT OPERATIONS Speech Therapy Care Plan (Resolved) There are no resolved problems. Principal Problem: CVA (cerebral vascular accident) ([facility]) * PT/OT/DIRECTOR OF SLOT OPERATIONS - ALVARO Chino/Krishan - 06/18/2025 7:37 AM EDT Occupational Therapy OT Type of Visit: Medical deferral Reason For Medical Deferral: Activity limitations Activity Limitations: Strict bedrest (Per TNK protocol. Will continue to follow.) * PT/OT/DIRECTOR OF SLOT OPERATIONS - Ayaan Campos PT - 06/18/2025 7:28 [...] Description: INTERVENTIONS: 1. Encourage patient or legal billing representative to report early pain and ask [...] per policy 9. Teach patient or legal billing representative interventions for comforting Outcome: Progressing Note: [...] at the bedside 7. Instruct patient/ patient billing representative about use of safety devices 8. Include patient/ patient billing representative in decisions related to safety Outcome: [...] hygiene technique. 7. Identify and instruct patient/patient billing representative in use of appropriate isolation precautionsfor identified infection/symptoms. 8. Provide and discuss with patient/patient billing representative on educational MDRO sheet. 9. Encourage and monitor nutritional status daily and consult electromechanical engineer if indicated. 10. Implement neutropenic guidelines as needed. Outcome: Progressing Note: Evaluation of progress towards goal: Labs and vitals monitored as ordered. Medications administered as ordered. Patient remains free from infection at this time. Problem: Moderate - High Risk Fall Score Description: [place] Fall Score of =/> 25 or indicated by [facility] Assessment Goal: Patient should be free from fall Description: Interventions: 1. O'Neals to environment 2. Hourly rounds addressing the [...] non-skid footwear 11. Teach patient and patient billing representative to maintain environment for safety and [...] (cane, walker) within reach 19. Request patient billing representative bring adaptive equipment/mobility aids from home or obtain and provide as needed 20. Consult pharmacy regarding effects of med's affecting mobility, cognition, and alternatives 21. Obtain physician order for PT if risk factors associated with mobility are present 22. Obtain physician order for OT as appropriate 23. Utilize diversional activities 24. Educate patient and patient billing representative how to maintain a safe environment during visitationtimes (notify nurse prior to leaving bedside) 25. Consider appropriateness of medical or non-medical assembler 26. Set up voiding schedule as appropriate [...] Description: INTERVENTIONS: 1. Encourage patient or legal billing representative to report early pain and ask [...] per policy 9. Teach patient or legal billing representative interventions for comforting Outcome: Progressing Note: [...] at the bedside 7. Instruct patient/ patient billing representative about use of safety devices 8. Include patient/ patient billing representative in decisions related to safety Outcome: [...] hygiene technique. 7. Identify and instruct patient/patient billing representative in use of appropriate isolation precautionsfor identified infection/symptoms. 8. Provide and discuss with patient/patient billing representative on educational MDRO sheet. 9. Encourage and monitor nutritional status daily and consult electromechanical engineer if indicated. 10. Implement neutropenic guidelines as needed. Outcome: Progressing Note: Evaluation of progress towards goal: Patient remains free from signs of infection at this time. Will continue to monitor. Problem: Knowledge Deficit Goal: Patient/patient billing representative demonstrates understanding of disease process, treatment plan,medications, [...] Score of =/> 25 or indicated by [facility] Assessment Goal: Patient should be free from fall Description: Interventions: 1. O'Neals to environment 2. Hourly rounds addressing the [...] non-skid footwear 11. Teach patient and patient billing representative to maintain environment for safety and [...] (cane, walker) within reach 19. Request patient billing representative bring adaptive equipment/mobility aids from home or obtain and provide as needed 20. Consult pharmacy regarding effects of med's affecting mobility, cognition, and alternatives 21. Obtain physician order for PT if risk factors associated with mobility are present 22. Obtain physician order for OT as appropriate 23. Utilize diversional activities 24. Educate patient and patient billing representative how to maintain a safe environment during visitationtimes (notify nurse prior to leaving bedside) 25. Consider appropriateness of medical or non-medical assembler 26. Set up voiding schedule as appropriate (every 2 hours) Outcome: Progressing Note: Evaluation of progress towards goal: Fall risk assessment preformed and safety measures in place. Education given to family/patient. Will continue to monitor. Additional Comments: [facility]* Discharge Planning Note - Hellen Brady - 06/23/2025 10:54 AM EDT DISCHARGE PLANNING NOTE [facility] via PTN [facility] Confirmed in [facility]. [facility] Progress note* Discharge Planning Note - CHARLES Lee - 06/23/2025 10:39 AM EDT DISCHARGE PLANNING NOTE Discharge written, CRF complete. Social work task [facility] to arrange BLS transport- wait confirmed time. [facility] notified of discharge and CRF sent. HENS submitted. is aware and agreeable to transition plan. RN updated. - CHARLES LEE 06/23/25 10:42 AM [facility]08-10[facility] Hospital course Narrative* Erika Crisostomo MD - 06/23/2025 10:30 AM EDT Images from the original note were not included. [facility] Physicians- Hospital Medicine Discharge Summary Patient's Name: Dariel Zabala Date of : 1940 Age: 85 yrs Gender: male PCP: Patient Care Team: Yanique Mcneill APRN-AVELINA as PCP - General (Family Medicine) DATE OF ADMISSION: 06/17/2025 DATE OF DISCHARGE: 06/23/2025 DISCHARGE DIAGNOSES: Active Hospital Problems Diagnosis Date Noted CVA (cerebral vascular accident) ([facility]) 06/17/2025 Resolved Problems No resolved problems to [...] in his anticoagulation Patient was discharged to senior living facility at a stable condition Discharge Medications: [...] total) by mouth in the morning. coenzyme R47-gqjjrrm E 100-5 mg-unit capsule Take 100 mg [...] Your Medications These medications were sent to [facility]/pharmacy #[id number] AT [place] [id number] apixaban 5 mg tablet midodrine 5 mg [...] Extra Tubes. Procedure Abnormality Status --------- ------ HipLogic[[id number]] Final result Please view results for these [...] results found. Discharge Instructions Disposition: Discharge to senior living facility Condition: Stable Activity: activity as tolerated Diet: Adult diet Regular Texture; Fluid Restriction 1800 mL Adult diet Yanique Mcneill, ASTRO TECHNICIAN-BUSINESS PROCESS CONSULTANT [address] [place] [id number] Follow up Information Provided to the Patient: Patient given copy of Discharge Instructions, patient hospital stay was discussed. No special instructions. I have spent 35 minutes coordinating and preparing this discharge. I have discussed the patient's hospitalization course, treatment plan and follow up instructions with patient and . I have answered all the patient's questions. Electronically signed by: ERIKA CRISOSTOMO MD [facility] 06/23/25 1:57 PM This note was partially dictated with the use of M*Modal.Please note that this dictation was completed with computer voice recognition software. Quite often unanticipated grammatical, syntax, homophones, and other interpretive errors are inadvertently transcribed by the computer software. Please disregard these errors. Please excuse any errors that have escaped final proofreading documented in this [facility] History of Present illness Narrative* Toy [...] PLATELETS X10E9/L 234 212 189 204 200 @RESUFAST(IRON,TIBC,FERRITIN,IRONSAT,FOLATE,[id number]))@ Results from last 7 days Lab Units [...] parameters to maintain systolic blood pressure more [id number] and less than 120. 4. Atrial fibrillation: [...] For questions please call: Answering Service at [phone] Or Office at [phone] This note was created with the assistance of a speech-recognition program. Although the intention is to generate a document that actually reflects the content of the visit, no guarantees can be provided that every mistake has been identified and corrected by editing. * Erika Crisostomo MD - 06/22/2025 12:57 PM EDT Images from the original note were not included. [facility] Hospitalists Progress Note 06/22/2025 Patient [...] Tubes. Procedure Abnormality Status --------- ------ Lavender Top[[id number]] Final result Please view results for these [...] X10E9/L 212 189 204 200 214 251 @RESUFAST(IRON,TIBC,FERRITIN,IRONSAT,FOLATE,[id number]))@ Results from last 7 days Lab Units [...] For questions please call: Answering Service at [phone] Or Office at [phone] This note was created with the assistance [...] clinical progress daily. Griselda Ramirez PharmD Ext [phone] * Erika Crisostomo MD - 06/21/2025 3:47 PM EDT Images from the original note were not included. [facility] 06/21/2025 Patient Name: [...] Tubes. Procedure Abnormality Status --------- ------ Lavender Top[[id number]] Final result Please view results for these [...] QUESTIONS FEEL FREE TO CALL: 1. OFFICE [phone] 2. ANSWERING SERVICE:[phone] YOU CAN CONTACT ME THROUGH watAgame SECURE CHAT DURING THE DAYTIME HOURS, IF [...] reportedly received TNK prior to arrival to [facility], heparin infusion bridge Drug-disease Interactions: - Could [...] clinical progress daily. Vinh Andre PharmD, BCPS [id number] * Myrtle Jacome MD - 06/21/2025 7:52 [...] found for: ALB , PROT , TBIL @LABRCNT(VANCCARO CENTEROUGH:3)@ No results found for: CRP No [...] CVA (cerebral vascular accident) ([facility]) Encephalopathy Recommendations/Plan: Continue PT, OT Max assist x2 bed mobility Family education Coumadin for AFib Consider senior living facility Will follow up with you for [...] clinical progress daily. Noreen Myers RPH Ext [phone] * Pat Araiza RN - 06/19/2025 8:52 PM EDT Images from the original note were not included. FOLLOW-UP: Post-Intensive Care Rounding Note Patient: Dariel Zabala : 1940 Age: 85 y.o. Length of Stay: 2 days Admission Diagnosis: CVA (cerebral vascular accident) ([facility]) [I63.9] Reviewing patient due to his recent transfer out from Intensive Care. Recorded vital signs are stable and the patient is not noted to be in any apparent distress. Telemetry and monitoring noted. Staff may call with any issues or concerns regarding his clinical presentation or stability. Thank you, Pat Araiza RN Rapid Response: [facility] * Rahat Mallory RPH - 06/19/2025 4:46 [...] CVA (cerebral vascular accident) ([facility]) [I63.9] Reviewing patient due to his recent transfer out from Intensive Care. Recorded vital signs are stable and the patient is not noted to be in any apparent distress. Telemetry and monitoring noted. Staff may call with any issues or concerns regarding his clinical presentation or stability. Thank you, JOSSELYN LARA RN Rapid Response: [facility] * Pat Araiza RN - 06/18/2025 8:32 PM EDT Images from the original note were not included. FOLLOW-UP: Post-Intensive Care Rounding Note Patient: Dariel Zabala DOB: 1940 Age: 85 y.o. Length of Stay: 1 days Admission Diagnosis: CVA (cerebral vascular accident) ([facility]) [I63.9] Reviewing patient due to his recent transfer out from Intensive Care. Recorded vital signs are stable and the patient is not noted to be in any apparent distress. Telemetry and monitoring noted. Staff may call with any issues or concerns regarding his clinical presentation or stability. Thank you, Pat Araiza RN Rapid Response: [facility] documented in this encounterBellevue Hospital08-10-2025 Plan of care note * Plan of Care - Yonathan Joy RN - 06/23/2025 6:29 AM EDT Problem: Pain Goal: Patient goal is pain score less than 4, able to rest, and participant in treatment plan as appropriate Description: INTERVENTIONS: 1. Encourage patient or legal billing representative to report early pain and ask [...] per policy 9. Teach patient or legal billing representative interventions for comforting 06/23/2025627 by ERIN Mcmanus [...] at the bedside 7. Instruct patient/ patient billing representative about use of safety devices 8. Include patient/ patient billing representative in decisions related to safety Outcome: [...] hygiene technique. 7. Identify and instruct patient/patient billing representative in use of appropriate isolation precautionsfor identified infection/symptoms. 8. Provide and discuss with patient/patient billing representative on educational MDRO sheet. 9. Encourage and monitor nutritional status daily and consult electromechanical engineer if indicated. 10. Implement neutropenic guidelines as needed. Outcome: Progressing Note: Evaluation of progress towards goal: Standard precaution maintained Problem: Knowledge Deficit Goal: Patient/patient billing representative demonstrates understanding of disease process, treatment plan,medications, [...] supplement as ordered 13. Collaborate with clinical electromechanical engineer 14. Include patient/ patient's billing representative in decisions related to nutrition Outcome: [...] develop effective communication strategies 4. Include patient/patient billing representative in decisions related to communication Outcome: [...] Collaborate with ancillary departments 14. Include patient/patient billing representative in decisions related to anxiety Outcome: [...] care 6. Collaborate with pastoral/spiritual care, social media developer, mental health counselor as needed. 7. Instruct patient on diversional activities such as physical activity, distraction, and deep breathing exercises to assist with coping 8. Involve patient's billing representative in care Outcome: Progressing Note: Evaluation [...] Score of =/> 25 or indicated by [facility] Assessment Goal: Patient should be free from fall Description: Interventions: 1. O'Neals to environment 2. Hourly rounds addressing the [...] non-skid footwear 11. Teach patient and patient billing representative to maintain environment for safety and [...] (cane, walker) within reach 19. Request patient billing representative bring adaptive equipment/mobility aids from home or obtain and provide as needed 20. Consult pharmacy regarding effects of med's affecting mobility, cognition, and alternatives 21. Obtain physician order for PT if risk factors associated with mobility are present 22. Obtain physician order for OT as appropriate 23. Utilize diversional activities 24. Educate patient and patient billing representative how to maintain a safe environment during visitationtimes (notify nurse prior to leaving bedside) 25. Consider appropriateness of medical or non-medical assembler 26. Set up voiding schedule as appropriate (every 2 hours) Outcome: Progressing Note: Evaluation of progress towards goal: Fall bundles maintained [facility] Consult note* Kaye Goel MD - 06/22/2025 4:04 PM EDTAssociated Order(s): IP CONSULT TO CARDIOLOGY Images from the original note were not included. [facility] [address] [place] [address] HISTORY & PHYSICAL / CONSULT NOTE Dariel Zabala PCP: Yanique Mcneill, THOMAS-AVELINA Date of Admission: 06/17/2025 Date of Consultation: 06/22/2025 4:05 PM Consult for atrial fibrillation, bradycardia, intermittent pauses SUBJECTIVE History of Present Illness: Dariel Zabala is a 85 y.o. male w/ PMH RUFINO s/p R CEA, DMII, HLD, hypothyroidism, HTN, SIADH, recent TIA 05/2025, and permanent atrial fibrillation w/ [id number] 7 on warfarin who presented 06/17/25 with [...] Past Medical History: Diagnosis Date Atrial fibrillation ([facility]) BPH (benign prostatic hyperplasia) Broken nose CVA (cerebral vascular accident) ([facility]) 06/17/2025 Diabetes ([facility]) Epistaxis Hypertension Hyponatremia secondary to SIADH Hypothyroid [...] intravenous PRN Rocio Davis MD heparin infusion 54265 units/500 mL in 0.45% NaCl (50 units/mL [...] Yes Not In System Ref Prov coenzyme K55-lxlkeqg E 100-5 mg-unit capsule Take 100 mg [...] Extremities: No edema ASSESSMENT Permanent atrial fibrillation, [id number] 8, on heparin gtt/warfarin L CVA s/p [...] This note was completed using a voice can top setter system. Every effort was made to ensure accuracy. However, inadvertent computerized can top setter errors may be present. [employer] Work Phone: [phone] Consult note* Kaye Goel MD - 06/22/2025 4:04 PM EDTAssociated Order(s): IP CONSULT TO CARDIOLOGY Images from the original note were not included. [facility] [address] [place] [address] HISTORY & PHYSICAL / CONSULT NOTE Dariel Valeriano Zabala PCP: TANYA Lozano Date of Admission: 06/17/2025 Date of Consultation: 06/22/2025 4:05 PM Consult for atrial fibrillation, bradycardia, intermittent pauses SUBJECTIVE History of Present Illness: Dariel aBl Vj is a 85 y.o. male w/ PMH RUFINO s/p R CEA, DMII, HLD, hypothyroidism, HTN, SIADH, recent TIA 05/2025, and permanent atrial fibrillation w/ [id number] 7 on warfarin who presented 06/17/25 with [...] Past Medical History: Diagnosis Date Atrial fibrillation ([facility]) BPH (benign prostatic hyperplasia) Broken nose CVA (cerebral vascular accident) ([facility]) 06/17/2025 Diabetes ([facility]) Epistaxis Hypertension Hyponatremia secondary to SIADH Hypothyroid [...] intravenous PRN Rocio Davis MD heparin infusion 08987 units/500 mL in 0.45% NaCl (50 units/mL premix) 300-3,500 Units/hr intravenous Continuous Rocio Davis MD 21 mL/hr at 06/21/25 1326 1,050 Units/hr at 06/21/25 1326 hydrALAZINE (APRESOLINE) injection 10 mg 10 mg intravenous Q6H PRN Rcoio Davis MD labetaloL (NORMODYNE,TRANDATE) injection 20 mg [...] Yes Not In System Ref Prov coenzyme W09-qvjaols E 100-5 mg-unit capsule Take 100 mg [...] Extremities: No edema ASSESSMENT Permanent atrial fibrillation, [id number] 8, on heparin gtt/warfarin L CVA s/p [...] This note was completed using a voice can top setter system. Every effort was made to ensure accuracy. However, inadvertent computerized can top setter errors may be present. * Richa Beyer MD - 06/20/2025 1:56 PM EDTAssociated Order(s): IP CONSULT TO PHYSICAL MEDICINE REHAB Images from the original note were not included. PHYSICAL MEDICINE AND REHABILITATION CONSULT Date of Admission: 06/17/2025 1:38 PM Referring Physician: Mirian Carranza MD PCP: Yanique Mcneill APRN-AVELINA Chief Compliant: Principal Problem: CVA (cerebral vascular accident) ([facility]) Reason for Consultation: Rehabilitation Candidacy and Rehab Draw Hand Physicians/Services Consulting Providers Provider Service Specialty MD [...] given to the patient and transferred to [facility]. CT perfusion study showed deficit in anterior [...] Past Medical History: Diagnosis Date Atrial fibrillation ([facility]) BPH (benign prostatic hyperplasia) Broken nose CVA (cerebral vascular accident) ([facility]) 06/17/2025 Diabetes ([facility]) Epistaxis Hypertension Hyponatremia secondary to SIADH Hypothyroid [...] End: 06:30 06/20/2025 This is a standard [facility] EEG monitoring reportusing scalp and ear electrodes [...] or primary neurological disorders. 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 Procedure Abnormality Status --------- ------ PST TOP[[id number]] Final result Please view results for these [...] CVA (cerebral vascular accident) ([facility]) MRI is negative for ischemia Debility Gait [...] by mouth in the morning. Taking coenzyme A94-lqoiakl E 100-5 mg-unit capsule Take 100 mg [...] anticoagulation MAISHA VERGARA MD [facility] ANY QUESTIONS FEEL FREE TO CALL: 1. OFFICE [phone] 2. ANSWERING SERVICE:[phone] YOU CAN CONTACT ME THROUGH watAgame SECURE CHAT DURING THE DAYTIME HOURS, IF NO RESPONSE AFTER 5 MINUTES CALL THE ANSWERING SERVICE This note was created with the assistance of a speech-recognition program. Although the intention is to generate a document that actually reflects the content of the visit, no guarantees can be provided that every mistake has been identified and corrected by editing. documented in this encounterBellevue Hospital08-09-2025 Plan of care note * Plan of Care - Debra Huggins RN - 06/22/2025 2:18 PM EDT Problem: Pain Goal: Patient goal is pain score less than 4, able to rest, and participant in treatment plan as appropriate Description: INTERVENTIONS: 1. Encourage patient or legal billing representative to report early pain and ask [...] per policy 9. Teach patient or legal billing representative interventions for comforting Outcome: Progressing Note: [...] at the bedside 7. Instruct patient/ patient billing representative about use of safety devices 8. Include patient/ patient billing representative in decisions related to safety Outcome: [...] hygiene technique. 7. Identify and instruct patient/patient billing representative in use of appropriate isolation precautionsfor identified infection/symptoms. 8. Provide and discuss with patient/patient billing representative on educational MDRO sheet. 9. Encourage and monitor nutritional status daily and consult electromechanical engineer if indicated. 10. Implement neutropenic guidelines as needed. Outcome: Progressing Note: Evaluation of progress towards goal: continue to monitor labs, vitals, tele, IV site Problem: Knowledge Deficit Goal: Patient/patient billing representative demonstrates understanding of disease process, treatment plan,medications, [...] supplement as ordered 13. Collaborate with clinical electromechanical engineer 14. Include patient/ patient's billing representative in decisions related to nutrition Outcome: [...] develop effective communication strategies 4. Include patient/patient billing representative in decisions related to communication Outcome: Progressing Note: Evaluation of progress towards goal: [place], speak loudly and understands Problem: Potential for [...] Collaborate with ancillary departments 14. Include patient/patient billing representative in decisions related to anxiety Outcome: [...] care 6. Collaborate with pastoral/spiritual care, social media developer, mental health counselor as needed. 7. Instruct patient on diversional activities such as physical activity, distraction, and deep breathing exercises to assist with coping 8. Involve patient's billing representative in care Outcome: Progressing Note: Evaluation [...] Progressing Note: Evaluation of progress towards goal: [facility] [place] Problem: Moderate - High Risk Fall Score Description: [place] Fall Score of =/> 25 or indicated by [facility] Assessment Goal: Patient should be free from fall Description: Interventions: 1. O'Neals to environment 2. Hourly rounds addressing the [...] non-skid footwear 11. Teach patient and patient billing representative to maintain environment for safety and [...] (cane, walker) within reach 19. Request patient billing representative bring adaptive equipment/mobility aids from home or obtain and provide as needed 20. Consult pharmacy regarding effects of med's affecting mobility, cognition, and alternatives 21. Obtain physician order for PT if risk factors associated with mobility are present 22. Obtain physician order for OT as appropriate 23. Utilize diversional activities 24. Educate patient and patient billing representative how to maintain a safe environment during visitationtimes (notify nurse prior to leaving bedside) 25. Consider appropriateness of medical or non-medical assembler 26. Set up voiding schedule as appropriate (every 2 hours) Outcome: Progressing Note: Evaluation of progress towards goal: no falls; syncopal episode per notes 06/21; up with assistonly; high fall risk - maintain precautions [facility]08-09-[facility] Progress note* Discharge Planning Note - Norma Ritter - 06/22/2025 12:42 PM EDT DISCHARGE PLANNING NOTE Prior Auth approved for admission to : [facility] (P# ; F# ) Approval # [id number] Valid for Dates: 06/22/2025 - 06/28/2025 [facility]08-09-[facility] Progress note* Discharge Planning Note - Norma Ritter - 06/22/2025 10:39 AM EDT DISCHARGE PLANNING NOTE Prior auth submitted to: [employer] Via: [employer] On behalf of : [facility] [place] (P# ; F# ) Ref# [id number] [facility]08-09-[facility]25 Progress note* Discharge Planning Note - CHARLES Lee - 06/22/2025 10:15 AM EDT DISCHARGE PLANNING NOTE Case discussed in daily transition rounds and chart reviewed by CN. [facility]. Social work contacted to [...] started. - CHARLES LEE 06/22/25 2:54 PM [facility]08-09-[facility] Plan of care note* Plan of Care - Yonathan Joy RN - 06/22/2025 3:45 AM EDT Problem: Pain Goal: Patient goal is pain score less than 4, able to rest, and participant in treatment plan as appropriate Description: INTERVENTIONS: 1. Encourage patient or legal billing representative to report early pain and ask [...] per policy 9. Teach patient or legal billing representative interventions for comforting Outcome: Progressing Note: [...] at the bedside 7. Instruct patient/ patient billing representative about use of safety devices 8. Include patient/ patient billing representative in decisions related to safety Outcome: [...] hygiene technique. 7. Identify and instruct patient/patient billing representative in use of appropriate isolation precautionsfor identified infection/symptoms. 8. Provide and discuss with patient/patient billing representative on educational MDRO sheet. 9. Encourage and monitor nutritional status daily and consult electromechanical engineer if indicated. 10. Implement neutropenic guidelines as needed. Outcome: Progressing Note: Evaluation of progress towards goal: Pt has no s/s of infection, standard precaution maintained Problem: Knowledge Deficit Goal: Patient/patient billing representative demonstrates understanding of disease process, treatment plan,medications, [...] supplement as ordered 13. Collaborate with clinical electromechanical engineer 14. Include patient/ patient's billing representative in decisions related to nutrition Outcome: [...] develop effective communication strategies 4. Include patient/patient billing representative in decisions related to communication Outcome: [...] Collaborate with ancillary departments 14. Include patient/patient billing representative in decisions related to anxiety Outcome: [...] care 6. Collaborate with pastoral/spiritual care, social media developer, mental health counselor as needed. 7. Instruct patient on diversional activities such as physical activity, distraction, and deep breathing exercises to assist with coping 8. Involve patient's billing representative in care Outcome: Progressing Note: Evaluation [...] Moderate - High Risk Fall Score Description: [place] Fall Score of =/> 25 or indicated by [facility] Assessment Goal: Patient should be free from fall Description: Interventions: 1. O'Neals to environment 2. Hourly rounds addressing the [...] non-skid footwear 11. Teach patient and patient billing representative to maintain environment for safety and [...] (cane, walker) within reach 19. Request patient billing representative bring adaptive equipment/mobility aids from home or obtain and provide as needed 20. Consult pharmacy regarding effects of med's affecting mobility, cognition, and alternatives 21. Obtain physician order for PT if risk factors associated with mobility are present 22. Obtain physician order for OT as appropriate 23. Utilize diversional activities 24. Educate patient and patient billing representative how to maintain a safe environment during visitationtimes (notify nurse prior to leaving bedside) 25. Consider appropriateness of medical or non-medical assembler 26. Set up voiding schedule as appropriate (every 2 hours) Outcome: Progressing Note: Evaluation of progress towards goal: Fall bundles maintained [facility] [employer] [id number] Plan of care note* Plan of Care - Lauren Gaona RN - 06/21/2025 6:18 PM EDT Problem: Knowledge Deficit Goal: Patient/patient billing representative demonstrates understanding of disease process, treatment plan,medications, [...] for adl's Problem: Knowledge Deficit Goal: Patient/patient billing representative demonstrates understanding of disease process, treatment plan,medications, [...] Description: INTERVENTIONS: 1. Encourage patient or legal billing representative to report early pain and ask [...] per policy 9. Teach patient or legal billing representative interventions for comforting Outcome: Progressing Note: [...] at the bedside 7. Instruct patient/ patient billing representative about use of safety devices 8. Include patient/ patient billing representative in decisions related to safety Outcome: [...] hygiene technique. 7. Identify and instruct patient/patient billing representative in use of appropriate isolation precautionsfor identified infection/symptoms. 8. Provide and discuss with patient/patient billing representative on educational MDRO sheet. 9. Encourage and monitor nutritional status daily and consult electromechanical engineer if indicated. 10. Implement neutropenic guidelines as [...] supplement as ordered 13. Collaborate with clinical electromechanical engineer 14. Include patient/ patient's billing representative in decisions related to nutrition Outcome: [...] develop effective communication strategies 4. Include patient/patient billing representative in decisions related to communication Outcome: [...] Collaborate with ancillary departments 14. Include patient/patient billing representative in decisions related to anxiety Outcome: [...] care 6. Collaborate with pastoral/spiritual care, social media developer, mental health counselor as needed. 7. Instruct patient on diversional activities such as physical activity, distraction, and deep breathing exercises to assist with coping 8. Involve patient's billing representative in care Outcome: Progressing Note: Evaluation [...] Score of =/> 25 or indicated by [facility] Assessment Goal: Patient should be free from fall Description: Interventions: 1. O'Neals to environment 2. Hourly rounds addressing the [...] non-skid footwear 11. Teach patient and patient billing representative to maintain environment for safety and [...] (cane, walker) within reach 19. Request patient billing representative bring adaptive equipment/mobility aids from home or obtain and provide as needed 20. Consult pharmacy regarding effects of med's affecting mobility, cognition, and alternatives 21. Obtain physician order for PT if risk factors associated with mobility are present 22. Obtain physician order for OT as appropriate 23. Utilize diversional activities 24. Educate patient and patient billing representative how to maintain a safe environment during visitationtimes (notify nurse prior to leaving bedside) 25. Consider appropriateness of medical or non-medical assembler 26. Set up voiding schedule as appropriate [...] Description: INTERVENTIONS: 1. Encourage patient or legal billing representative to report early pain and ask [...] per policy 9. Teach patient or legal billing representative interventions for comforting Outcome: Progressing Note: [...] at the bedside 7. Instruct patient/ patient billing representative about use of safety devices 8. Include patient/ patient billing representative in decisions related to safety Outcome: [...] hygiene technique. 7. Identify and instruct patient/patient billing representative in use of appropriate isolation precautionsfor identified infection/symptoms. 8. Provide and discuss with patient/patient billing representative on educational MDRO sheet. 9. Encourage and monitor nutritional status daily and consult electromechanical engineer if indicated. 10. Implement neutropenic guidelines as [...] supplement as ordered 13. Collaborate with clinical electromechanical engineer 14. Include patient/ patient's billing representative in decisions related to nutrition Outcome: [...] develop effective communication strategies 4. Include patient/patient billing representative in decisions related to communication Outcome: [...] Collaborate with ancillary departments 14. Include patient/patient billing representative in decisions related to anxiety Outcome: [...] care 6. Collaborate with pastoral/spiritual care, social media developer, mental health counselor as needed. 7. Instruct patient on diversional activities such as physical activity, distraction, and deep breathing exercises to assist with coping 8. Involve patient's billing representative in care Outcome: Progressing Note: Evaluation [...] Score of =/> 25 or indicated by [facility] Assessment Goal: Patient should be free from fall Description: Interventions: 1. O'Neals to environment 2. Hourly rounds addressing the [...] non-skid footwear 11. Teach patient and patient billing representative to maintain environment for safety and [...] (cane, walker) within reach 19. Request patient billing representative bring adaptive equipment/mobility aids from home or obtain and provide as needed 20. Consult pharmacy regarding effects of med's affecting mobility, cognition, and alternatives 21. Obtain physician order for PT if risk factors associated with mobility are present 22. Obtain physician order for OT as appropriate 23. Utilize diversional activities 24. Educate patient and patient billing representative how to maintain a safe environment during visitationtimes (notify nurse prior to leaving bedside) 25. Consider appropriateness of medical or non-medical assembler 26. Set up voiding schedule as appropriate (every 2 hours) Outcome: Progressing Note: Evaluation of progress towards goal: free of fall this shift Problem: Pain Goal: Patient goal is pain score less than 4, able to rest, and participant in treatment plan as appropriate Description: INTERVENTIONS: 1. Encourage patient or legal billing representative to report early pain and ask [...] per policy 9. Teach patient or legal billing representative interventions for comforting Outcome: Progressing Note: [...] at the bedside 7. Instruct patient/ patient billing representative about use of safety devices 8. Include patient/ patient billing representative in decisions related to safety Outcome: [...] at the bedside 7. Instruct patient/ patient billing representative about use of safety devices 8. Include patient/ patient billing representative in decisions related to safety Outcome: [...] hygiene technique. 7. Identify and instruct patient/patient billing representative in use of appropriate isolation precautionsfor identified infection/symptoms. 8. Provide and discuss with patient/patient billing representative on educational MDRO sheet. 9. Encourage and monitor nutritional status daily and consult electromechanical engineer if indicated. 10. Implement neutropenic guidelines as [...] supplement as ordered 13. Collaborate with clinical electromechanical engineer 14. Include patient/ patient's billing representative in decisions related to nutrition Outcome: [...] develop effective communication strategies 4. Include patient/patient billing representative in decisions related to communication Outcome: [...] as caffeine and (more content not included)... [email or web address] [id number] Progress note* Discharge Planning Note - Martina Mckeon - 06/21/2025 3:45 PM EDT DISCHARGE PLANNING NOTE Ref[facility] [id number] Progress note* Discharge Planning Note - Rohini Mcintyre RN - 06/21/2025 2:29 PM EDT 06/21/25 1425 Services Requested Patient expects to be discharged to: SNF Does the patient wish to have family/friend/caregiver involved in their discharge planning? Yes Does the patient plan to return home to a community setting? No, patient to discharge to facility-based provider. See Discharge Disposition Discharge Disposition SNF Facility/Service Name NA SNF Name [facility] Does the patient need discharge transportation arranged? Yes Transportation Arranged Ambulance Mobility issues discussed with transportation provider Yes Patient choice offered Yes List Provided Yes [facility] List Provided Half-Way Facility Financial Disclosure Provided for In-Network Referral Yes DISCHARGE PLANNING NOTE CN spoke w pts , SNF choice is [facility]. She did n ot have a 2nd choice. CN asked her to review list for dditional choices. CN tasked for referral to [facility]. Barriers: SNFaccept. Will need precert. CTbrain.Rohini Mcintyre RN [facility]08-08-2025 Nurse Note* Lauren Gaona RN - 06/21/2025 1:[address] Crisostomo, restart the heparin drip at this time, CTB negative. Restart at prior rate. Recheck antixa in 6 hours. [facility]08-08-2025 Progress note* Discharge Planning Note - Rohini Mcintyre RN - 06/21/2025 12:44 PM EDT DISCHARGE PLANNING NOTE PT/OT rec SNF. CN called and left Voicemail for pts . Pt not appropriate for [facility]. Need SNF choices. CN also sent SNF list Via careport to pts cell phone to select choices. Await response. Rohini Mcintyre RN [facility]08-08-2025 Progress note* PT/OT/DIRECTOR OF SLOT OPERATIONS - LU Enriquez - 06/21/2025 9:58 AM [...] None Scoring Daily Activity Raw Score: 14 [facility] Code Modifier: CK Modified chip index: 5/20 Occupational Profile Patient seen for OT eval on 06-19-2025. Patient now seen for OT re-eval to update goals due to improved level of alertness and ability to participate in therapy. Patient admitted with left side weakness and aphasia. 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 History of A-fib on coumadin and diabetic. Continue to recommend senior living facility. Patient with episode of decreased responsiveness with listing to the left while on commode for 1-2 minutes. Once alert patient was nauseated. RNLauren called to room. Patient assisted from stephanie gomes and MD in room. See below for past medical and past surgical history. Past Medical History: Diagnosis Date Atrial fibrillation ([facility]) BPH (benign prostatic hyperplasia) Broken nose CVA (cerebral vascular accident) ([facility]) 06/17/2025 Diabetes ([facility]) Epistaxis Hypertension Hyponatremia secondary to SIADH Hypothyroid [...] Equipment: waker, chair alarm, gait belt, telemetry. Telemetry/Art Preparator: Yes Oxygen Used: room air Other: (S) [...] Patient will perform toilet transfers with Modified [place] Dates: Start: 06/21/25 Expected End: 07/19/25 Description: [...] CVA (cerebral vascular accident) ([facility]) [facility]08-08-2025 Progress note* PT/OT/DIRECTOR OF SLOT OPERATIONS - Ayaan Campos, PT - 06/21/2025 9:56 [...] Past Medical History: Diagnosis Date Atrial fibrillation ([facility]) BPH (benign prostatic hyperplasia) Broken nose CVA (cerebral vascular accident) ([facility]) 06/17/2025 Diabetes ([facility]) Epistaxis Hypertension Hyponatremia secondary to SIADH Hypothyroid Lumbar spondylosis TIA (transient ischemic attack) Past Surgical History: Procedure Laterality Date NECK SURGERY plate in neck per Modified [place] Level of Disability: Moderately severe disability 0= [...] gait belt, wheeled walker, IV, chair/bed alarm Telemetry/Art Preparator: Yes Oxygen Used: room air Other: (S) [...] CVA (cerebral vascular accident) ([facility]) [facility]08-08-2025 Nurse Note* Lauren Gaona RN - 06/21/2025 9:27 AM EDT In chair, alert and responding. BP 98/65. Dr Crisostomo returns page and updated on events. [facility]08-08-2025 Nurse Note* Lauren Gaona RN - 06/21/2025 9:22 AM EDT Working with physical and occupational therapy. Ambulated to bathroom, had been alert and conversing, suddenly became unresponsive, staring and leaning to left. Resolved after 2-3 minutes, then more alert and was able to state name. Assisted to chair. Dr Kranthi gay. [facility]08-07-2025 Plan of care note* Plan of Care - Nicole Sparks RN - 06/20/2025 11:40 PM EDT Problem: Pain Goal: Patient goal is pain score less than 4, able to rest, and participant in treatment plan as appropriate Description: INTERVENTIONS: 1. Encourage patient or legal billing representative to report early pain and ask [...] per policy 9. Teach patient or legal billing representative interventions for comforting Outcome: Progressing Note: [...] at the bedside 7. Instruct patient/ patient billing representative about use of safety devices 8. Include patient/ patient billing representative in decisions related to safety Outcome: [...] hygiene technique. 7. Identify and instruct patient/patient billing representative in use of appropriate isolation precautionsfor identified infection/symptoms. 8. Provide and discuss with patient/patient billing representative on educational MDRO sheet. 9. Encourage and monitor nutritional status daily and consult electromechanical engineer if indicated. 10. Implement neutropenic guidelines as needed. Outcome: Progressing Note: Evaluation of progress towards goal: No s/s of infection at this time Problem: Knowledge Deficit Goal: Patient/patient billing representative demonstrates understanding of disease process, treatment plan,medications, [...] Score of =/> 25 or indicated by [facility] Assessment Goal: Patient should be free from fall Description: Interventions: 1. O'Neals to environment 2. Hourly rounds addressing the [...] non-skid footwear 11. Teach patient and patient billing representative to maintain environment for safety and [...] (cane, walker) within reach 19. Request patient billing representative bring adaptive equipment/mobility aids from home or obtain and provide as needed 20. Consult pharmacy regarding effects of med's affecting mobility, cognition, and alternatives 21. Obtain physician order for PT if risk factors associated with mobility are present 22. Obtain physician order for OT as appropriate 23. Utilize diversional activities 24. Educate patient and patient billing representative how to maintain a safe environment during visitationtimes (notify nurse prior to leaving bedside) 25. Consider appropriateness of medical or non-medical assembler 26. Set up voiding schedule as appropriate (every 2 hours) Outcome: Progressing Note: Evaluation of progress towards goal: pt free from fall at this time Problem: Knowledge Deficit Goal: Patient/patient billing representative demonstrates understanding of disease process, treatment plan,medications, [...] alert and oriented to person and age [facility]08-07-2025 Progress note* Situational Awareness - Gary Coronado MD - 06/20/2025 5:36 PM EDT [facility] Transfer Accept Note I have received a request for transfer of primary service for this patient from the neurology team care of neurology attending, clinical handoff received from Neurology resident. [facility] will assume careas primary team of this patient 7:00 a.m. 06/21/2025. [employer] Work Phone: [phone] Plan of care note* Plan of Care [...] also shows no change in renal function. [employer] [id number] Consult note* Richa Beyer MD - 06/20/2025 1:56 PM EDTAssociated Order(s): IP CONSULT TO PHYSICAL MEDICINE REHAB Images from the original note were not included. PHYSICAL MEDICINE AND REHABILITATION CONSULT Date of Admission: 06/17/2025 1:38 PM Referring Physician: Mirian Carranza MD PCP: TANYA Lozano Chief Compliant: Principal Problem: CVA (cerebral vascular accident) ([facility]) Reason for Consultation: Rehabilitation Candidacy and Rehab Draw Hand Physicians/Services Consulting Providers Provider Service Specialty MD [...] given to the patient and transferred to [facility]. CT perfusion study showed deficit in anterior [...] Past Medical History: Diagnosis Date Atrial fibrillation ([facility]) BPH (benign prostatic hyperplasia) Broken nose CVA (cerebral vascular accident) ([facility]) 06/17/2025 Diabetes ([facility]) Epistaxis Hypertension Hyponatremia secondary to SIADH Hypothyroid [...] End: 06:30 06/20/2025 This is a standard [facility] EEG monitoring reportusing scalp and ear electrodes [...] or primary neurological disorders. 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 Procedure Abnormality Status --------- ------ PST TOP[[id number]] Final result Please view results for these [...] CVA (cerebral vascular accident) ([facility]) MRI is negative for ischemia Debility Gait [...] you for the referral. Richa Beyer MD [employer] Work Phone: [phone]) 553-325408-07-2025 Progress note* Discharge Planning Note - Rohini Mcintyre RN - 06/20/2025 12:33 PM EDT DISCHARGE PLANNING NOTE Pt will need updated PT/OT notes sent to [facility]. When pt/ot worked w him yesterday they rec SNF, but he was much less alert. Pt doing better today. Therapy will work w him tomorrow morning 06/21to see if IPR appropriate. Barriers: IPR accept, pt/ot to see, precert. Rohini Mcintyre RN [facility]08-07-2025 Consult note* Maisha Vergara MD - [...] by mouth in the morning. Taking coenzyme [id number] E 100-5 mg-unit capsule Take 100 mg [...] anticoagulation MAISHA VERGARA MD [facility] ANY QUESTIONS FEEL FREE TO CALL: 1. OFFICE [phone] 2. ANSWERING SERVICE:[phone] YOU CAN CONTACT ME THROUGH [employer] SECURE CHAT DURING THE DAYTIME HOURS, IF NO RESPONSE AFTER 5 MINUTES CALL THE ANSWERING SERVICE This note was created with the assistance of a speech-recognition program. Although the intention is to generate a document that actually reflects the content of the visit, no guarantees can be provided that every mistake has been identified and corrected by editing. [facility]08-07-2025 Progress note* Discharge Planning Note - Brianna Verduzco - 06/20/2025 10:36 AM EDT DISCHARGE PLANNING NOTE I received a voice mail from Franc at [facility] phone [phone], she says she has left a few messages for an update for patient. This is the only vm I have received. Sending an [employer] chat to Rohini / Vivienne / Mesha with information [facility]08-06-2025 Plan of care note* Plan of Care - Nicole Sparks RN - 06/19/2025 11:13 PM EDT Problem: Pain Goal: Patient goal is pain score less than 4, able to rest, and participant in treatment plan as appropriate Description: INTERVENTIONS: 1. Encourage patient or legal billing representative to report early pain and ask [...] per policy 9. Teach patient or legal billing representative interventions for comforting Outcome: Progressing Note: [...] at the bedside 7. Instruct patient/ patient billing representative about use of safety devices 8. Include patient/ patient billing representative in decisions related to safety Outcome: [...] hygiene technique. 7. Identify and instruct patient/patient billing representative in use of appropriate isolation precautionsfor identified infection/symptoms. 8. Provide and discuss with patient/patient billing representative on educational MDRO sheet. 9. Encourage and monitor nutritional status daily and consult electromechanical engineer if indicated. 10. Implement neutropenic guidelines as [...] supplement as ordered 13. Collaborate with clinical electromechanical engineer 14. Include patient/ patient's billing representative in decisions related to nutrition Outcome: [...] Score of =/> 25 or indicated by [facility] Assessment Goal: Patient should be free from fall Description: Interventions: 1. O'Neals to environment 2. Hourly rounds addressing the [...] non-skid footwear 11. Teach patient and patient billing representative to maintain environment for safety and [...] (cane, walker) within reach 19. Request patient billing representative bring adaptive equipment/mobility aids from home or obtain and provide as needed 20. Consult pharmacy regarding effects of med's affecting mobility, cognition, and alternatives 21. Obtain physician order for PT if risk factors associated with mobility are present 22. Obtain physician order for OT as appropriate 23. Utilize diversional activities 24. Educate patient and patient billing representative how to maintain a safe environment during visitationtimes (notify nurse prior to leaving bedside) 25. Consider appropriateness of medical or non-medical assembler 26. Set up voiding schedule as appropriate (every 2 hours) Outcome: Progressing Note: Evaluation of progress towards goal: pt free from fall at this time safety measures in place [employer] [id number] Progress note* PT/OT/DIRECTOR OF SLOT OPERATIONS - Ayaan Campos, PT - 06/19/2025 2:49 [...] P1/P2 occlusion. TNK given and transfer to [facility]. On arrival, NIHSS = 0 CT perfusion [...] hyperplasia) Broken nose CVA (cerebral vascular accident) ([facility]) 06/17/2025 Diabetes ([facility]) Epistaxis Hypertension Hyponatremia secondary to SIADH Hypothyroid [...] tolerated Equipment: repositioning sling, IV, bed alarm Telemetry/Art Preparator: Yes Oxygen Used: room air Other: high [...] with rails Stairs to Enter: 2 from graphics software engineer Rails: Right Stairs in Home: 0 Bathroom Shower/Tub: Walk-in shower Bathroom Toilet: Standard Home Equipment: Rolling walker Other : Home info from EMR review of recent therapy eval at [facility] - pt not able to answer questionsthis date and no family present. 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 Prior Function Lives With: Spouse (Leelee) [...] CVA (cerebral vascular accident) ([facility]) [facility]08-06-2025 Progress note* PT/OT/DIRECTOR OF SLOT OPERATIONS - Veronica Rivera OTR/Krishan - 06/19/2025 2:48 PM EDT Occupational Therapy Evaluation Discharge Recommendations for Safe Patient Transition Discharge Recommendations: Post acute - moderate Post Acute Moderate Rehab Needs: Recommend moderate intensity rehab, Tolerate 1- 2 hrs of therapy 3-5 days/wk, Subacute or chronic functional impairment Current Impairments Informing Therapy Recommendation: Ambulation status/safety, Cognition, Fall risk, ADL status, Communication needs, Endurance level Modified [place] Level of Disability: Severe disability 0= No [...] Activity Raw Score: 12 [facility] G Code Modifier: CL Modifed [...] Past Medical History: Diagnosis Date Atrial fibrillation ([facility]) BPH (benign prostatic hyperplasia) Broken nose CVA (cerebral vascular accident) ([facility]) 06/17/2025 Diabetes ([facility]) Epistaxis Hypertension Hyponatremia secondary to SIADH Hypothyroid [...] per early mobility guidelines. Equipment: telemetry, IV Telemetry/Art Preparator: Yes Oxygen Used: room air Other: fall [...] CVA (cerebral vascular accident) ([facility]) [id number] Nurse Note* Deepali Mathew RN - 06/19/2025 10:55 AM EDT RN concerned as patient is extremely drowsy not following commands or speaking, RN called neuro resident Dr. Davis who states she thinks patient is just tired and will re assess later. [facility] [employer] [id number] Progress note* Discharge Planning Note - Dawson [...] Home with home health services Facility/Service Name [facility] Case discussed in daily transition rounds and chart reviewed by CN. Barriers to discharge include PT/OT, PMR to see, Discharge Plan remains: Home with [facility] vs IPR. [facility] will accept. [facility]- will need PT/OT notes as soon as they are in. CN will continue to follow and is available should any further needs arise. - Dawson Yost RN 06/19/25 8:40 AM [facility]08-05-2025 Plan of care note* Plan of Care - Leigha Eden RN - 06/18/2025 10:49 PM EDT Problem: Pain Goal: Patient goal is pain score less than 4, able to rest, and participant in treatment plan as appropriate Description: INTERVENTIONS: 1. Encourage patient or legal billing representative to report early pain and ask [...] per policy 9. Teach patient or legal billing representative interventions for comforting Outcome: Progressing Note: [...] at the bedside 7. Instruct patient/ patient billing representative about use of safety devices 8. Include patient/ patient billing representative in decisions related to safety Outcome: [...] hygiene technique. 7. Identify and instruct patient/patient billing representative in use of appropriate isolation precautionsfor identified infection/symptoms. 8. Provide and discuss with patient/patient billing representative on educational MDRO sheet. 9. Encourage and monitor nutritional status daily and consult electromechanical engineer if indicated. 10. Implement neutropenic guidelines as needed. Outcome: Progressing Note: Evaluation of progress towards goal: Pt should remain free from infection during this shift. Standard precautions used during care. Problem: Knowledge Deficit Goal: Patient/patient billing representative demonstrates understanding of disease process, treatment plan,medications, [...] be free from fall Description: Interventions: 1. O'Neals to environment 2. Hourly rounds addressing the [...] non-skid footwear 11. Teach patient and patient billing representative to maintain environment for safety and [...] (cane, walker) within reach 19. Request patient billing representative bring adaptive equipment/mobility aids from home or obtain and provide as needed 20. Consult pharmacy regarding effects of med's affecting mobility, cognition, and alternatives 21. Obtain physician order for PT if risk factors associated with mobility are present 22. Obtain physician order for OT as appropriate 23. Utilize diversional activities 24. Educate patient and patient billing representative how to maintain a safe environment during visitationtimes (notify nurse prior to leaving bedside) 25. Consider appropriateness of medical or non-medical assembler 26. Set up voiding schedule as appropriate (every 2 hours) Outcome: Progressing Note: Evaluation of progress towards goal: Pt should remain free from fall during this shift. Bed in lowest position and locked, side rails up /, personal items and call light within reach, non skid socks applied, environment clear of hazards. [facility]08-05-2025 Nurse Note* Lauren Gaona RN - 06/18/2025 6:26 PM EDT Patient confused, on heparin drip, constantly trying to get out of bed, hitting, kicking and tryingto bite staff. Unable to follow direction. Dr Davis notified, says will order seroquel. Notified ofQT from EKG done 06/17 at [place]. [facility]08-05-2025 Progress note* Discharge Planning Note - Martina Mckeon - 06/18/2025 1:25 PM EDT DISCHARGE PLANNING NOTE Referral sent to [facility] in [place] (P# ; F# ) [facility]08-05-2025 Progress note* Discharge Planning Note - Brianna Verduzco - 06/18/2025 1:04 PM EDT DISCHARGE PLANNING NOTE Referral sent to. [facility] in [place], [place] (P# ; F# ) [facility]08-05-2025 Progress note* Discharge Planning Note - Dawson [...] Acute rehab, Home with home health services Rice Field Worker met with patient, introduced self, and explained role. Patient educated on safe discharge plan. Pt admitted 06/17/2025 with CVA (cerebral vascular accident) ([facility]) [I63.9] per chart review. Consults: Neurology Discharge Barriers per Daily Transition Rounds and chart review: PT/OT, s/p TNK- bedrest, MRi, echo. Past Medical History: Diagnosis Date Atrial fibrillation ([facility]) BPH (benign prostatic hyperplasia) Broken nose CVA (cerebral vascular accident) ([facility]) 06/17/2025 Diabetes ([facility]) Epistaxis Hypertension Hyponatremia secondary to SIADH Hypothyroid [...] patient to appointments, shopping and assisting with internet marketing manager. Caregiver's personal limitations include Patient's feels she [...] vs acute rehab. PCP: TANYA Lozano Pharmacy: [facility] PCP and pharmacy confirmed with patient. CN offered to assist with follow up appointment arrangements; . TANYA Lozano added to Follow Up Providers for Summary of Care communication. Per patient self-report: Drug use: denies Smoking: denies ETOH Use: rarely Current discharge plan is: Home with [facility] vs acute rehab pending PT/OT eval. CN spoke with patient'swife she has used [facility] health in past. Tasked to send referrals to [facility] and to [facility]. Services Requested: Services Requested Patient expects to [...] Evaluation of progress towards goal: Home with [facility] Autogenerated Goal Will continue to follow as plan of care develops. CN discussed benefits and importance of medication compliance and follow ups. Please feel free to reach out for any discharge planning questions. - Dawson Yost RN 06/18/25 12:24 PM [facility]08-05-2025 Progress note* PT/OT/DIRECTOR OF SLOT OPERATIONS - Zaire Sierra CCC- DIRECTOR OF SLOT OPERATIONS - 06/18/2025 10:35 AM EDT Speech Therapy Evaluation Bedside Swallow/Feeding Evaluation Speech & Language Cognitive Evaluation Discharge Recommendations for Safe Patient Transition DIRECTOR OF SLOT OPERATIONS Post Discharge Therapy Recommendations: Continue ST services [...] decline resulting from CVA. Prognosis Services: Skilled DIRECTOR OF SLOT OPERATIONS services to address above deficits Prognosis/Potential: Good Considerations: Age, Cognition Discharge Recommendations for Safe Patient Transition DIRECTOR OF SLOT OPERATIONS Post Discharge Therapy Recommendations: Continue ST services [...] should be further evaluated. Prognosis Services: Skilled DIRECTOR OF SLOT OPERATIONS services to address the above deficits Prognosis/Potential: [...] Dysphagia Problem: Swallowing Dates: Start: 06/18/25 Disciplines: DIRECTOR OF SLOT OPERATIONS Goal: STG: Patient will complete safety strategies independently during PO intake 90% of the time Dates: Start: 06/18/25 Expected End: 07/22/25 Disciplines: DIRECTOR OF SLOT OPERATIONS Template: ST - Rehab Speech Problem: Auditory Comprehension Dates: Start: 06/18/25 Disciplines: DIRECTOR OF SLOT OPERATIONS Goal: LTG: Patient will comprehend communication related to basic medical and social needs and utilize compensatory strategies to maintain safety in a functional living environment Dates: Start: 06/18/25 Expected End: 07/22/25 Disciplines: DIRECTOR OF SLOT OPERATIONS Goal: STG: Patient will answer simple yes/no questions with 90% accuracy with minimal cueing. Dates: Start: 06/18/25 Expected End: 07/22/25 Disciplines: DIRECTOR OF SLOT OPERATIONS Goal: STG: Patient will answer complex yes/no questions with 90% accuracy with minimal cueing Dates: Start: 06/18/25 Expected End: 07/22/25 Disciplines: DIRECTOR OF SLOT OPERATIONS Problem: Verbal Expression Dates: Start: 06/18/25 Disciplines: DIRECTOR OF SLOT OPERATIONS Goal: LTG: Patient will utilize compensatory strategies to communicate wants and needs effectively to different conversational partners, maintain safety and participate socially in a functional living environment Dates: Start: 06/18/25 Expected End: 07/22/25 Disciplines: DIRECTOR OF SLOT OPERATIONS Goal: STG: Patient will complete simple to complex divergent and convergent naming tasks with 90% accuracy with minimal cueing to improve thought organization Dates: Start: 06/18/25 Expected End: 07/22/25 Disciplines: DIRECTOR OF SLOT OPERATIONS Goal: STG: Patient will use word retrieval strategies during structured interactions to improve functional communication during activities of daily living with 90% accuracy with minimal cueing Dates: Start: 06/18/25 Expected End: 07/22/25 Disciplines: DIRECTOR OF SLOT OPERATIONS Speech Therapy Care Plan (Resolved) There are no resolved problems. Principal Problem: CVA (cerebral vascular accident) ([facility]) [facility]08-05-2025 Progress note* PT/OT/DIRECTOR OF SLOT OPERATIONS - ALVARO Chino/Krishan - 06/18/2025 7:37 AM EDT Occupational Therapy OT Type of Visit: Medical deferral Reason For Medical Deferral: Activity limitations Activity Limitations: Strict bedrest (Per TNK protocol. Will continue to follow.) [facility]08-05-2025 Progress note* PT/OT/DIRECTOR OF SLOT OPERATIONS - Ayaan Cmapos PT - 06/18/2025 7:28 AM EDT Physical Therapy PT Type of Visit: Medical deferral (strict bedrest s/p TNK per protocol) Reason For Medical Deferral: Activity limitations Activity Limitations: Strict bedrest Will check back as appropriate. [facility]08-05-2025 Plan of care note* Plan of Care - Lin Rhodes RN - 06/18/2025 7:14 AM EDT Problem: Pain Goal: Patient goal is pain score less than 4, able to rest, and participant in treatment plan as appropriate Description: INTERVENTIONS: 1. Encourage patient or legal billing representative to report early pain and ask [...] per policy 9. Teach patient or legal billing representative interventions for comforting Outcome: Progressing Note: [...] at the bedside 7. Instruct patient/ patient billing representative about use of safety devices 8. Include patient/ patient billing representative in decisions related to safety Outcome: [...] hygiene technique. 7. Identify and instruct patient/patient billing representative in use of appropriate isolation precautionsfor identified infection/symptoms. 8. Provide and discuss with patient/patient billing representative on educational MDRO sheet. 9. Encourage and monitor nutritional status daily and consult electromechanical engineer if indicated. 10. Implement neutropenic guidelines as [...] be free from fall Description: Interventions: 1. O'Neals to environment 2. Hourly rounds addressing the [...] non-skid footwear 11. Teach patient and patient billing representative to maintain environment for safety and [...] (cane, walker) within reach 19. Request patient billing representative bring adaptive equipment/mobility aids from home or obtain and provide as needed 20. Consult pharmacy regarding effects of med's affecting mobility, cognition, and alternatives 21. Obtain physician order for PT if risk factors associated with mobility are present 22. Obtain physician order for OT as appropriate 23. Utilize diversional activities 24. Educate patient and patient billing representative how to maintain a safe environment during visitationtimes (notify nurse prior to leaving bedside) 25. Consider appropriateness of medical or non-medical assembler 26. Set up voiding schedule as appropriate (every 2 hours) Outcome: Progressing Note: Evaluation of progress towards goal: Fall risk assessment preformed and safety measures in place. Education given to family/patient. [facility] continue to monitor. [facility] [id number] Plan of care note* Plan of Care - Rich Nelson RN - 06/17/2025 7:23 PM EDT Problem: Pain Goal: Patient goal is pain score less than 4, able to rest, and participant in treatment plan as appropriate Description: INTERVENTIONS: 1. Encourage patient or legal billing representative to report early pain and ask [...] per policy 9. Teach patient or legal billing representative interventions for comforting Outcome: Progressing Note: [...] at the bedside 7. Instruct patient/ patient billing representative about use of safety devices 8. Include patient/ patient billing representative in decisions related to safety Outcome: [...] hygiene technique. 7. Identify and instruct patient/patient billing representative in use of appropriate isolation precautionsfor identified infection/symptoms. 8. Provide and discuss with patient/patient billing representative on educational MDRO sheet. 9. Encourage and monitor nutritional status daily and consult electromechanical engineer if indicated. 10. Implement neutropenic guidelines as needed. Outcome: Progressing Note: Evaluation of progress towards goal: Patient remains free from signs of infection at this time. Will continue to monitor. Problem: Knowledge Deficit Goal: Patient/patient billing representative demonstrates understanding of disease process, treatment plan,medications, [...] Score of =/> 25 or indicated by [facility] Re[facility] Assessment Goal: Patient should be free from fall Description: Interventions: 1. O'Neals to environment 2. Hourly rounds addressing the [...] non-skid footwear 11. Teach patient and patient billing representative to maintain environment for safety and [...] (cane, walker) within reach 19. Request patient billing representative bring adaptive equipment/mobility aids from home or obtain and provide as needed 20. Consult pharmacy regarding effects of med's affecting mobility, cognition, and alternatives 21. Obtain physician order for PT if risk factors associated with mobility are present 22. Obtain physician order for OT as appropriate 23. Utilize diversional activities 24. Educate patient and patient billing representative how to maintain a safe environment during visitationtimes (notify nurse prior to leaving bedside) 25. Consider appropriateness of medical or non-medical assembler 26. Set up voiding schedule as appropriate (every 2 hours) Outcome: Progressing Note: Evaluation of progress towards goal: Fall risk assessment preformed and safety measures in place. Education given to family/patient. Will continue to monitor. Additional Comments: [facility] [employer] [id number] NotePatient Education Nephrology Hyponatremia Hyponatremia is when [...] Follow these instructions at home: ??? Take vmyh-bkx-bavkycs and prescription medicines only as told by [...] provider. Document Revised: 05/11/2022 Document Reviewed: 05/11/2022 [employer] Patient Education ? 2023 [employer].[facility] 06-05-2025 History of Present illness Narrative* Flip Dubose RN - 06/05/2025 7:02 PM EDT Pt discharge- pt taken downstairs by wheelchair by son and by car [facility] . Son givenmed s, discharge instructions . Questions answered * Flip Dubose RN - 06/05/2025 5:58 PM EDT Pt status- neuro PHYSIOTHERAPY ASSISTANT Nicole Musa called me in MICU few hrs ago. . Nicole spoke with Gladys , Kishore by phone. . Kishore is adament, despite [place] mild confusion, that she and her son want to drive Alexx back home to [place] to care for him at home tonight [...] 147 See Reflexed IPF Result Warfarin dose BANDER AND CELLOPHANER MACHINE: 5 mg MWF and 2.5 mg all [...] Will continue to follow. Starr Jackman PharmD [facility] 06/05/2025 11:23 AM * Venessa Najera, PT - 06/05/2025 10:32 AM EDT Physical Therapy Facility/Department: [facility] 3- MICU Physical Therapy Initial [...] within reach, Gait belt, Left in chair [facility] Basic Mobility - Inpatient How much help [...] 3-5 steps with a railing?: A Little [facility] Inpatient Mobility Raw Score : 22 [facility] Inpatient T-Scale Score : 53.28 Mobility Inpatient CMS 0-100% Score: 20.91 Mobility Inpatient [facility] G-Code Modifier : CJ Restrictions/Precautions [...] Level of Assist for Transfers: Independent Active Undertaker Assistant: Yes Mode of Transportation: Truck Occupation: [...] Deann Carter MD Internal Medicine Resident, PGY-2 [place], [place] 06/05/2025,10:28 AM Attending Physician Statement I [...] 3 SUBJECTIVE: HISTORY OF PRESENT ILLNESS: Dariel Zaabla is a 85 y.o. with past medical history of A-fib on Coumadin, hypertension, type 2 diabetes, BPH, SIADH, hyponatremia, hypothyroidism [facility] after a fall which resulted in nasal bone fracture. Patient initially presented to [facility] yesterday and was treated with Afrin and nasal pressure, patient was discharged home with ENT follow-up. When patient returned home he blew his nose and resulted in brisk bleeding from the left nare prompting him to return to the ER yesterday evening. He had bilateral nasal packing with Rhino Rocket's placed and was transferred to [facility] evaluation. Patient was seen by ENT upon [...] this chart was generated using voice recognition [employer] dictation software. Although every effort was made to ensure the accuracy of this automated can top setter, some errors in can top setter may have occurred. * Geo Rehman [facility] - 06/04/2025 3:32 PM EDT Pharmacy Note Warfarin Consult follow-up Recent Labs 06/04/25 1423 INR 1.8 Recent Labs 06/02/25 1308 06/03/25 0618 HGB 12.3* 12.3* HCT 36.5* 35.2* PLT 147 See Reflexed IPF Result Warfarin dose BANDER AND CELLOPHANER MACHINE: 5 mg MWF and 2.5 mg all [...] MIRELES MD Pediatric Otolaryngology-Head and Neck Surgery [facility] Otolaryngology group Office ph# [phone] Also available in [employer]UTORize * Rowena Duong, [facility] [...] from the original note were not included. [facility] Office: [phone] Viktor Monet DO, Jermaine Gustafson DO, Brigida [...] Hdz DNP, Janelle Luna CNP, Celena Johnson, BUSINESS PROCESS CONSULTANT, Annia Rogers, BUSINESS PROCESS CONSULTANT, Christina Cuevas, BUSINESS PROCESS CONSULTANT, Marline Vila PA-C, Adore Cueto, AVELINA, Emily Chiang, BUSINESS PROCESS CONSULTANT, Maria Elena De La Torre, BUSINESS PROCESS CONSULTANT, Venessa Mitchell, BUSINESS PROCESS CONSULTANT, Rush Peters, RAMÓNC, Rachel Nascimento, RAMÓNC, Lorna Salazar, BUSINESS PROCESS CONSULTANT, Edwina Cole, WASTEWATER SUPERINTENDENT, Alex Castillo CNP, Leelee Easley, AVELINA [facility] IN-PATIENT SERVICE [facility] Progress Note 06/03/2025 8:19 AM Name: Dariel Zabala Acct: [id number] Room: [address] [place] [address] Day: 1 Admit Date: 06/02/2025 10:01 AM [...] hypertension, type2 diabetes, SIADH initially presented to [place] emergency department for nosebleeding after mechanical fall out of a chair. CT scan reportedly showed nasal bone fracture. He was transferred to [place] for ENT evaluation. ENT deflated nasal packings [...] , PHART , PH , POCPCO2 , QWE9DGB , PCO2 , POCPO2 , PO2ART , PO2 , POCHCO3 , HKI1FZV , HCO3 , NBEA , PBEA , BEART , BE , THGBART , THB , AKF2HOU , GRRT4PZR , A9FRDHFY , O2SAT , FIO2 No results found [...] DAIGLE MD Pediatric Otolaryngology-Head and Neck Surgery [facility] Otolaryngology group Office ph# [phone] Also available in [employer]ve * Juju Garcia [facility] [...] 06/02/2025 10:44 AM EDT Pt arrived from [facility] via [facility]. Pt A&Ox4, admission database complete. Mediations reconciled. Pt put on telemetry and continuous pulse ox. Vitals stable. Bilat rhino rockets in place. No active epistaxis at this time. Primary team made aware of arrival. Rice Field Worker called pt's to make her aware if the transfer, no answer left message. documented in this encounterBon [facility] Hospital course Narrative* Pepito Grant MD - 06/05/2025 3:29 PM EDT Images from the original note were not included. [facility] Department of Internal Medicine - Critical Care Service INPATIENT DISCHARGE SUMMARY PATIENT IDENTIFICATION: NAME: Dariel Zabala : 1940 Acct: [id number] Admit Date: 06/02/2025 Discharge date: No discharge [...] in nasal bone fracture. [facility] and was treated with Afrin and nasal pressure, patient wasdischarged home with ENT follow-up. When patient returned home he blew his nose and resulted in brisk bleeding from the left nare prompting him to return to the ER yesterday evening. He had bilateralnasal packing with Rhino Rocket's placed and was transferred to [facility] for ENT evaluation. Patient was seen by [...] 1 weeks with PCP, in 1 weeks qa specialist Time Spent on discharge is more than 15 minutes in the examination, evaluation, counseling and review of medications and discharge plan. Pepito Grant MD Internal Medicine Resident Critical Care Service Cosigned by Flaco Ren MD at 06/05/2025 5:16 PM EDT documented in this encounterBon [facility] Hospital Discharge instructions* Discharge Instructions* Pepito [...] 2-3 Please follow-up with your PCP and qa specialist (kidney doctor )for continued care Please go to the nearest ER if you have worsening of current symptoms or started experiencing new symptoms like shortness of breath, chest pain, palpitations, dizziness, loss of consciousness, any bleed from the nose for further evaluation management documented in this encounterBon [facility] NoteNurse Consultation Note Reason for Visit [...] 03/31/2015 Recorded influenza virus vaccine, inactivated 08/02/2014 [facility] NotePatient Education Cardiovascular Atrial Fibrillation Atrial fibrillation [...] these instructions at home: Medicines ??? Take usst-uwx-wczgygp and prescription medicines only as told by [...] provider. Document Revised: 07/20/2023 Document Reviewed: 07/20/2023 Par[employer] Universe Patient Education ? 2023 [employer]. Caregiving Fall Prevention in the Home, Adult Falls can cause injuries and can happen to people of all ag (more content not included)...[facility]02-17-2025 NoteNurse Consultation Note Reason for Visit Pt [...] 03/31/2015 Recorded influenza virus vaccine, inactivated 08/02/2014 [facility]-2025 NotePatient Education Cardiovascular Atrial Fibrillation Atrial fibrillation [...] signals of the heart. ??? An ambulatory potline monitor to record your heart's activity for [...] the main warning s (more content not included)...[facility] 11-28-2024 History of Present illness Narrative* Jose L Chow NP - 11/28/2024 1:00 PM EST Images from the original note were not included. HISTORY OF PRESENT ILLNESS: Dariel Zabala is an 84 y.o. @ male. 1ST PO LT CTR 11/19/24 (9 DAYS) @ [facility] ([place] PAIN DIFFUSE IN HAND/WRIST. [...] Jose L Chow APRN-AVELINA documented in this encounterEllett Memorial [id number] History of Present illness Narrative* Emiliano Escamilla MD - 11/26/2024 10:30 AM EST Images from the original note were not included. Subjective Patient ID: Dariel Zabala is a 84 y.o. male who presents for Ear Problem (Hearing aid battery in ear.) Pt seen in [facility] ED last Tuesday and DARNELL battery [...] NECK SURGERY TRIGGER FINGER RELEASE Right 03/26/2024 [facility] () No Known Allergies Current Outpatient Medications [...] NOSTRIL ONCE DAILY AT BEDTIME [DISCONTINUED] HYDROcodone-acetaminophen ([place]) 5-325 MG tablet [DISCONTINUED] tiZANidine (Zanaflex) 4 [...] dementia. Dr Garcia notified. documented in this encounterEllett Memorial [id number] NoteProgress Note-Physician Patient: DARIEL ZABALA Age: 84 years Sex: Male : 1940 Associated Diagnoses: None Author: Carmine COHN, Chau Pineda Postoperative Information Postoperative disposition: Postoperative disposition: To PACU. Optimetrix number: Optimetrix number [id number]. Anesthetic utilized: General. Health Status Allergies: Allergic [...] Discharge when meets criteria ( To home ).[facility] CenterComment on above:Result Comment: Electronically Signed By: Chau Lou MD\.br\Date and Time Signed: 11/19/24 15:19 EST 11-19-2024 Evaluation + Plan noteExtracted from: Title:ANES Post-operative Note---General Author: Chau Lou MD Date:11/19/24 Plan Transfer/Discharge: Transfer/Discharge Discharge when meets criteria ( To home ). Extracted from: Title:ANES Pre-operative Note 2022 Author:Chau Goode Date:11/19/24 Plan [place] [employer] Anesthesiologists (ASA) physical status classification: Class III. Anesthetic Preoperative Plan: Anesthesia General. Future Appointments Appointment Date:12/12/2024 10:15:00 AM Scheduled Provider:Dixon Dubose PA-C Location:.[facility] Clinic Appointment Type:Cardiology Follow Up (FT) Appointment Date:05/02/2025 08:00:00 AM Scheduled Provider: Location:[facility] Appointment Type:FM Medicare Wellness Subsequent Future Scheduled Tests Laboratory* Basic Metabolic Panel 11/13/24 [facility] [id number] NotePatient Education - Text [place], [place] [facility] CARPAL TUNNEL RELEASE INSTRUCTIONS [...] Patient Signature Axel Hernández, DO [facility] [address] [place], [place] [id number] [phone] Reviewed: 04-22[facility]01-[facility] NoteProgress Note-Physician Patient: DARIEL ZABALA [...] daily, # 90 tab(s), Refills(s) 0, [id number], cm, 06/11/24 12:53:00 EDT, Height/Length Dosing, 82, kg, 06/11/2412:56:00 EDT, Weight Dosing Sodium Chloride 1000 mg oral tablet, soluble: See Instructions, 30 tab(s), Refill(s) 0, Take one tablet daily[id number] 178.6, cm, 11/01/24 9:21:00 EST, Height/Length Dosing, 81.3, kg, 11/01/24 9:21:00 EST, Weight Dosing Synthroid 25 mcg(0.025 mg) Tab: See Instructions, TAKE 1 TABLET DAILY ON AN EMPTY STOMACH, # 3 tab(s), Refills(s) 0, [id number] 178, cm, 08/07/24 10:59:00 EDT, Height/Length Dosing, 78.2, kg, 08/07/24 10:59:00 EDT, Weight Dosing atenolol 25 mg Tab: See Instructions, take 1/2 tab daily, # 90 tab(s), Refills(s) 1, Pharmacy: [facility], 178, cm, 09/10/24 13:01:00 EDT, Height/Length Dosing, 80.1, kg, 09/10/24 13:01:00 EDT, Weight Dosing finasteride 5 mg Tab: 5 mg = 1 tab(s), Oral, Daily, # 90 tab(s), Refills(s) 1, Pharmacy: [facility]/pharmacy #[id number], 178.6, cm, 11/01/24 9:21:00 EST, Height/Length Dosing, 81.3, kg, 11/01/24 9:21:00 EST, Weight Dosing fluticasone Nasal 0.05 mg/inh [place]: See Instructions, 48 mL, Refill(s) 1, USE 1 SPRAY IN EACH NOSTRIL TWICE A DAY, [facility] STORE [id number], 178, cm, 08/28/24 14:50:00 EDT, Height/Length Dosing, 82.2, kg, 08/28/24 14:50:00 EDT, Weight Dosing gabapentin 300 mg Cap: 300 mg = 1 cap(s), Oral, Daily, # 90 cap(s), Refills(s) 1, Pharmacy: [facility], 178, cm, 07/03/24 10:05:00 EDT, Height/Length Dosing, 80.8, kg, 07/03/2410:05:00 EDT, Weight Dosing glimepiride 2 mg Tab: See Instructions, TAKE 1 TABLET DAILY, # 3 tab(s), Refills(s) 0, Pharmacy: [facility], 178, cm, 08/07/24 10:59:00 EDT, Height/Length Dosing, 78.2, kg, 08/07/24 10:59:00 EDT, Weight Dosing omeprazole 40 mg Cap-DR: 40 mg = 1 cap(s), Oral, Daily, # 90 cap(s), Refills(s) 1, Pharmacy: [facility], 178, cm, 08/28/24 14:50:00 EDT, Height/Length Dosing, 82.2, kg, 08/28/24 14:50:00 EDT, Weight Dosing pravastatin 40 mg Tab: 40 mg = 1 tab(s), Oral, Daily, # 90 tab(s), Refills(s) 3, Pharmacy: [facility], 178, cm, 09/10/24 13:01:00 EDT, Height/Length Dosing, 80.1, kg, 09/10/24 13:01:00 EDT, Weight Dosing sildenafil 100 mg Tab: 100 mg = 1 tab(s), Oral, Daily, PRN for erectile dysfunction, 1 hour before sexual activity, # 5 tab(s), Refills(s) 0, Pharmacy: [facility], 178, cm, 07/03/24 10:05:00 EDT, Height/Length Dosing, 80.8, kg, 07/03/24 10:05:00 EDT,... tamsulosin 0.4 mg Cap: 0.4 mg = 1 cap(s), Oral, Daily, # 90 cap(s), Refills(s) 1, Pharmacy: [facility], 178, cm, 09/10/24 13:01:00 EDT, Height/Length Dosing, 80.1, kg, 09/10/2413:01:00 EDT, Weight Dosing Documented Medications Documented CoQ10: See Instructions, PRN Prophylaxis, Refills(s) 0 D3: See Instructions, Oral Daily- patient states he takes 500 once a day, Refills(s) 0 Jantoven 5 mg oral tablet: 5 mg = 1 tab(s), Oral, Daily, Refills(s) 0, Blood Thinner (more content not included)...[facility] CenterComment on above:Result Comment: Electronically Signed By: Carmine COHN, Chau Pineda\.br\Date and Time Signed: 11/19/24 11:51 [id number] Hospital Discharge instructions Patient Education 11/12/2024 12:08:21 Hernández - Carpal Tunnel Release Instructions (Custom) (CUSTOM) [place] [facility] CARPAL TUNNEL RELEASE INSTRUCTIONS [...] apply any type lotion such as lanolin, Dluce cream or cocoa butter. This should be [...] resolve. Patient SignatureMiclolis Hernández, [facility] [address], [place] [address] Reviewed: 04-2211/19/2024 13:10:26 Post Op Patient Instructions - FT (Custom) (CUSTOM) Follow Up Care 10/03/2024 14:28:43 With:GORDO Weller Address: [address] [place] [phone] Business (1) When:11/28/2024 13:00:00 Comments:Keep scheduled appointment. Call for any problems. [facility] 12-30-2024 NotePatient Education - Text [place], [place] [facility] CARPAL TUNNEL RELEASE INSTRUCTIONS [...] Patient Signature Axel Hernández, DO [facility] [address] [place] [address] Reviewed: 04-22[facility]12-30-20[facility] NoteNurse Consultation Note Reason for [...] Daily, 1 refills fluticasone Nasal 0.05 mg/inh Hildebran, See Instructions, Self Directed gabapentin 300 mg [...] 03/31/2015 Recorded influenza virus vaccine, inactivated 08/02/2014 RecordedFair[facility] Center11-15-2024 History of Present illness Narrative* Shala Farrell MD - 09/28/2024 9:30 AM EST [facility] Patient: Dariel Zabala [address], [address] , Sex: 1940, Male [place], [place] [address] Height: 180 cm Ref Phys: Hernández fax [...] Doub=doublet; Fasc=fasciculation; FFE=full for effort; Fib=fibrillation; Myokym=myokymia; [place]=myotonic potential; N,0=normal; NR=no response; Polyph=polyphasia; Pos=positive [sharp] [...] available for comparison. Shala Farrell M.D. Diplomate, [place] Board of Psychiatry and Neurology (neurology, epilepsy, sleep medicine) Diplomate, [place] Board of Clinical Neurophysiology Diplomate, [place] Board of Preventive Medicine (clinical informatics) . documented in this [facility]10-07-2024 Telephone encounter Note* Telephone Encounter - Miguel Moe - 08/20/2024 10:50 AM EDT LVM to RC in regard to BUE referral from Dr. Hernández--Approved to schedule--25.00 co-pay will be applied to toward OOP. [facility] [id number] Miscellaneous Notes* Telephone Encounter - Miguel Moe - 08/20/2024 10:50 AM EDT LVM to RC in regard to BUE referral from Dr. Hernández--Approved to schedule--25.00 co-pay will be applied to toward OOP. documented in this [facility]05-13-2024 Hospital Discharge instructions Patient Education 03/26/2024 14:02:11 [...] condition: Doing activities that require a strong sea shell gatherer. Having rheumatoid arthritis, gout, or diabetes. Being [...] splint on your hand. General instructions Take [id number] and prescription medicines only as told by [...] provider. Document Revised: 03/17/2020 Document Reviewed: 03/17/2020 [employer] Patient Education 2022 [employer]. Follow Up Care 03/01/2024 15:40:29 With:GORDO Weller Address: [address] [place], [place] [phone] Business (1) When:04/04/2024 10:15:00 Comments:Keep scheduled appointment [facility]01-05-2024 Evaluation note* Encounter Date Diagnosis Assessment [...] sodium level at upcoming appt in January [facility] Other 12-20-2023 Evaluation note* Encounter Date Diagnosis [...] further dizziness symptoms would recommend f/u with police cadet as well. [facility] Other 11-17-2023 Evaluation note* Encounter Date Diagnosis Assessment Notes Treatment Notes Treatment Clinical Notes Sep, Type 2 diabetes mellitus (ICD-10 - E11.9) [facility] Other 11-17-2023 Miscellaneous Notes* Telephone Encounter - Venessa Riggins RN - 09/30/2023 12:29 PM EST Called patient back and reviewed plan from his call with Nurse Polymer Specialist at 11:36 AM. See my note Patient already called his PCP as advise and waiting call back for scheduling. He was hospital discharged on 08/26 for cognitive problems and low sodium. He finished his pills for low sodium today. NOC closing was given Conferenced him to [facility] for an appt with nephrology as [...] have any questions, you can call Nurse human resources receptionist back. * Telephone Encounter - Venessa Riggins RN - 09/30/2023 11:36 AM EST Patient calling with request for physician referral: Patient referred to nephrology and primary care Department. Patient denies any new or worsening symptoms of which a provider is not aware: Yes. Patient was discharged from [facility] on 08/26 for low sodium and said [...] none PCP luis appt. Conferenced him to [facility] and then call dropped. My [employer] and [employer] lost connection. NOC closing was given GO TO THE EMERGENCY ROOM OR CALL 911 IF: * You develop any new symptoms * Your condition worsens * You are concerned or anxious about your condition for any other reason. If you have any questions, you can call Nurse human resources receptionist back. documented [facility]-2023 Evaluation note* Encounter Date Diagnosis Assessment Notes Treatment Notes Treatment Clinical Notes Sep, Hyponatremia (ICD-10 - E87.1) Recent sodium 136 at low end of normal, given significance of symptoms and recommendation of hospital for f/u will refer to nephrology patient requesting [place] Sep, Anticoagulant long-term use (ICD-10 - Z79.01) Follows with INR clinic through [facility]. Sep, Atrial fibrillation (ICD-10 - I48.91) Appears in NSR today, anticoagulated on Warfarin Sep, Hypothyroidism (ICD-10 - E03.9) Recent TFTs in normal range, clinically euthyroid, continue current dose of LT4 Sep, Type 2 diabetes mellitus (ICD-10 - E11.9) Recent a1c in good range at 5.6%, continue current dose of glimepiride. Sep, Immunization due (ICD-10 - Z23) [facility] Other 10-16-2023 Evaluation note* Encounter Date Diagnosis Assessment Notes Treatment Notes Treatment Clinical Notes Aug, Hyponatremia (ICD-10 - E87.1) [facility] Other 08-03-2023 Evaluation note* Encounter Date Diagnosis Assessment Notes Treatment Notes Treatment Clinical Notes Jun, Atrial fibrillation (ICD-10 - I48.91) Rate controlled, mild bradycardia but asymptomatic. Will continue current dose of atenolol. He is anticoagulated on Coumadin with goal INR 2-3, he is due for INR check. Will refer to coumadin clinic through [facility] Jun, Anticoagulant long-term use (ICD-10 - Z79.01) Jun, Hearing loss (ICD-10 - H91.90) Referral to local ladder operator Jun, Dermatitis (ICD-10 - L30.9) Can trial topical steroid PRN, discussed may be secondary to dry skin. Recommend daily use of lotion Jun, Hypothyroidism (ICD-10 - E03.9) Due for TFTs prior to next visit Jun, Type 2 diabetes mellitus (ICD-10 - E11.9) Due for a1c prior to next visit Jun, BPH (benign prostatic hyperplasia) (ICD-10 - N40.0) [facility] Other 08-03-2023 Reason for referral (narrative)* Reason Medication managemen t through [facility] - Coumadin management with INR goal 2-3 Diagnosis 1 Anticoagulant long-t erm use (Z79.01) [facility] Referring Provider First Name Jada Referring Provider Last Name [facility] Referring Provider Specialty [facility] Referred Organization [facility] Referred Address [address], [place],[address] Referred Provider Specialty Milvia s Referral Priority Routine General Notes Gabrielle Reid 01/2023 01:34:29 PM >this is an order not a referral, clinical informed and will fax order over for standing order INR to [facility] Reason * FU 06/29 CALL he aring loss, issue with hearing aids Diagnosis 1 Hearing loss (H91.90 ) [facility] Referring Provider First Name Jada Referring Provider Last Name [facility] Referring Provider Specialty [facility] Referred Organization [facility] Referred Address ,[place], [place],[address] Referred Provider Specialty Audiologists Referral Priority Routine General Notes Gabrielle Reid 01/2023 01:28:34 PM >referral received and faxed [facility] Other 04-27-2010 History of Past illness Narrative* Problem Noted Date Diagnosed Date Resolved Date Myalgia 03/10/2010 03/01/2011 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 and other lower urinary tract symptoms (LUTS) 08/11/2006 01/11/2013 Elevated prostate specific antigen (PSA) 03/07/2012 documented as of this encounter (statuses as of 09/30/2023) [facility] note No data available for this section [facility] note Future Appointments Appointment Date:03/08/2024 01:00:00 PM Scheduled Provider:Edwin Garcia MD Location:[facility] Appointment Type:FM Open Appointment Date:03/26/2024 01:45:00 PM Scheduled Provider: Location:[facility] Appointment Type:Surgery FT Appointment Date:05/01/2024 09:00:00 AM Scheduled Provider: Location:[facility] Appointment Type:FM Lab Draw Appointment Date:05/03/2024 08:00:00 AM Scheduled Provider: Location:[facility] Appointment Type: Medicare Wellness Subsequent Appointment Date:05/03/2024 09:00:00 AM Scheduled Provider:Edwin Garcia MD Location:[facility] Appointment Type: Open Future Scheduled Tests Laboratory* PSA Screen, Total 02/02/24 * CBC w/ Auto Diff 02/02/24 * Comprehensive Metabolic Panel 02/02/24 * Lipid Panel 02/02/24 [facility] Future Appointments Appointment Date:05/01/2024 09:00:00 AM Scheduled Provider: Location:[facility] Appointment Type: Lab Draw Appointment Date:05/03/2024 08:00:00 AM Scheduled Provider: Location:[facility] Appointment Type: Medicare Wellness Subsequent Appointment Date:05/03/2024 09:00:00 AM Scheduled Provider:Edwin Garcia MD Location:[facility] Appointment Type: Open Future Scheduled Tests Laboratory* PSA Screen, Total 02/02/24 * CBC w/ Auto Diff 02/02/24 * Comprehensive Metabolic Panel 02/02/24 * Lipid Panel [facility]02/24 [facility] Future Appointments Appointment Date:05/01/2024 09:00:00 AM Scheduled Provider: Location:[facility] Appointment Type:FM Lab Draw Appointment Date:05/03/2024 08:00:00 AM Scheduled Provider: Location:[facility] Appointment Type: Medicare Wellness Subsequent Appointment Date:05/03/2024 09:00:00 AM Scheduled Provider:Edwin Garcia MD Location:[facility] Appointment Type: Open Appointment Date:05/25/2024 01:00:00 PM Scheduled Provider:Kashif Barnett MD [facility] Appoint[facility] Type:Cardiology Follow Up (FT) Future Scheduled Tests Laboratory* PSA Screen, Total 02/02/24 * CBC w/ Auto Diff 02/02/24 * Comprehensive Metabolic Panel 02/02/24 * Lipid Panel 02/02/24 Radiology* Echo Transthoracic Complete [facility]20[facility] Future Appointments Appointment Date:05/03/2024 08:00:00 AM Scheduled Provider: Location:[facility] Appointment Type:FM Medicare Wellness Subsequent Appointment Date:05/03/2024 09:00:00 AM Scheduled Provider:Edwin Garcia MD Location:[facility] Appointment Type:FM Open Appointment Date:05/21/2024 10:00:00 AM Scheduled Provider: [facility] Type:CV Holter/Event (FT) Appointment Date:05/25/2024 01:00:00 PM Scheduled Provider:Kashif Barnett MD [facility] Type:Cardiology Follow Up (FT) [facility] note Future Appointments Appointment Date:05/30/2024 03:45:00 PM Scheduled Provider:Kashif Barnett MD [facility] Type:Cardiology Follow Up (FT) Appointment Date:11/01/2024 09:15:00 AM Scheduled Provider:Edwin Garcia MD Location:[facility] Appointment Type: Open Appointment Date:05/02/2025 08:00:00 AM Scheduled Provider: Location:[facility] Appointment Type: Medicare Wellness Subsequent [facility] + Plan note Future Appointments Appointment Date:08/31/2024 01:00:00 PM Scheduled Provider:Kashif Barnett MD [facility] Appointment Type:Cardiology Follow Up (FT) Appointment Date:11/01/2024 09:15:00 AM Scheduled Provider:Edwin Garcia MD Location:[facility] Appointment Type: Open Appointment Date:05/02/2025 08:00:00 AM Scheduled Provider: Location:[facility] Appointment Type:FM Medicare Wellness Subsequent [facility] Future Appointments Appointment Date:11/01/2024 09:15:00 AM Scheduled Provider:Edwin Garcia MD Location:[facility] Appointment Type:FM Open Appointment Date:12/11/2024 01:00:00 PM Scheduled Provider:Dixon Dubose PA-C Location:[facility] Appointment Type:Cardiology Follow Up (FT) Appointment Date:05/02/2025 08:00:00 AM Scheduled Provider: Location:[facility] Appointment Type: Medicare Wellness Subsequent [facility] Evaluation + Plan note Future Appointments Appointment Date:11/01/2024 09:15:00 AM Scheduled Provider:Edwin Garcia MD Location:[facility] Appointment Type:FM Open Appointment Date:11/19/2024 02:15:00 PM Scheduled Provider: Location:[facility] Appointment Type:Surgery FT Appointment Date:12/12/2024 10:15:00 AM Scheduled Provider:Dixon Dubose PA-C [facility] Type:Cardiology Follow Up (FT) Appointment Date:05/02/2025 08:00:00 AM Scheduled Provider: Location:[facility] Appointment Type: Medicare Wellness Subsequent [facility] Evaluation + Plan note Future Appointments Appointment Date:11/19/2024 02:15:00 PM Scheduled Provider: Location[facility] Appointment Type:Surgery FT Appointment Date:12/12/2024 10:15:00 AM Scheduled Provider:Dixon Dubose PA-C [facility] Type:Cardiology Follow Up (FT) Appointment Date:05/02/2025 08:00:00 AM Scheduled Provider: Location:[facility] Appointment Type: Medicare Wellness Subsequent [facility] Evaluation + Plan note Future Appointments Appointment Date:12/24/2024 01:15:00 PM Scheduled Provider:Edwin Garcia MD Location:[facility] Appointment Type:FM Open Appointment Date:05/02/2025 08:00:00 AM Scheduled Provider: Location:[facility] Appointment Type: Medicare Wellness Subsequent Diagnostic Tests Pending * Basic Metabolic Panel 12/17/24 Future Scheduled Tests Laboratory* Basic Metabolic Panel 11/13/24 [facility] evaluation + Plan note Future Appointments Appointment Date:01/22/2025 10:15:00 AM Scheduled Provider:Edwin Garcia MD Location:[facility] Appointment Type: Open Appointment Date:05/02/2025 08:00:00 AM Scheduled Provider: Location:[facility] Appointment Type: Medicare Wellness Subsequent Future Scheduled Tests Laboratory* Basic Metabolic Panel 11/13/24 [facility] evaluation + Plan note Future Appointments Appointment Date:02/05/2025 01:30:00 PM Scheduled Provider:Edwin Garcia MD Location:[facility] Appointment Type: Open Appointment Date:05/02/2025 08:00:00 AM Scheduled Provider: Location:[facility] Appointment Type: Medicare Wellness Subsequent Future Scheduled Tests Laboratory* Basic Metabolic Panel 01/10/25 * Basic Metabolic Panel 11/13/24 [facility] evaluation + Plan note Future Appointments Appointment Date:05/02/2025 08:00:00 AM Scheduled Provider: Location:[facility] Appointment Type: Medicare Wellness Subsequent Future Scheduled Tests Laboratory* Basic Metabolic Panel 11/13/24 [facility] evaluation + Plan note Future Appointments Appointment Date:08/09/2025 10:40:00 AM Scheduled Provider:YANIQUE MCNEILL CNP Location:[facility] Appointment Type: Open Appointment Date:05/13/2026 08:00:00 AM Scheduled Provider: Location:[facility] Appointment Type: Medicare Wellness Subsequent Future Scheduled Tests Laboratory* Basic Metabolic Panel 11/13/24 [facility] evaluation noteNo [facility] Other evaluation note* Diagnosis Pain in both [...] Other postprocedural status documented in this encounter [facility] HealthcareEvaluation note* Diagnosis Fracture of nasal [...] and immunity disorders documented [facility] encounter [facility]* Diagnosis CVA (cerebral vascular accident) ([facility] Primary Unspecified cerebral artery occlusion with cerebral infarction 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) [facility] encounter [facility] System[facility] general Narrative - Reported* Type Description Date Medical History type 2 diabetes Medical History hypothyroid Medical History Afib Surgical History multiple neck sx Surgical History tonsillectomy Surgical History adenoidectomy Surgical History [facility]U cataract Hospitalization History see above [facility] Other [facility] general Narrative - Reported* Type Description Date Medical History type 2 diabetes Medical History hypothyroid Medical History Afib Surgical History multiple neck sx Surgical History tonsillectomy Surgical History adenoidectomy Surgical History MAU cataract Hospitalization History see above Hospitalization History low sodium- [facility] 10/2023 [facility] Other [facility] general Narrative - Reported* Type Description Date Medical History type 2 diabetes Medical History hypothyroid Medical History Afib Surgical History multiple neck sx Surgical History tonsillectomy Surgical History adenoidectomy Surgical History MAU cataract Hospitalization History see above Hospitalization History low sodium- [facility] 10/2023 Hospitalization History Jackie--Influe nza A, hyponatremia, paroxysmal afib, altered mental status, type 2 DM, generalized weakness hypomagnesiema, RADHA 11/13/23-11/15/23 [facility] Other Hospital Discharge instructions No data available for this section [facility] Dis[facility] instructionsNot on file documented in this encounterBellevue HospitalHospital Discharge instructionsAmbulatory Orders* Initiate Home Health [...] see your [facility] in the [facility] Work Phone: Progress note No data available for this section [facility] for visit Narrative* Auth/Cert (Routine) Specialty Diagnoses / Procedures Referred By Samuel reese Referred To Contact Diagnoses Epistaxis Nasal fracture Fracture of nasal bones, initial encounter for closed fracture Beto Hedrick DO [address] [place] [address] Phone: tel: fax: [facility] [id number] [place] [address] Referral ID Status Reason Start Date Expiration Date Visits Re quested Visits Authorized [id number] 1 1 [facility] for visit Narrative* Auth/Cert Specialty Diagnoses / Procedures Referred By Samuel reese Referred To Contact Diagnoses CVA Mara [address] [place] [id number] Referral ID Status Reason Start Date Expiration Date Visits Re quested Visits Authorized [id number] 1 1 [facility] Summary Purpose Family History No Family History Records Found Relationship Condition Age at Onset Recorded Date/T siri father Unknown family member Unknown mother Unknown Advance Directives No Advanced Directives Records Found Date Activated Date Inactivated Comments 06/02/2025 12:05 PM Date Activated Date Inactivated Comments 06/23/2025 10:31 AM Advance Directive Response Recorded Date/ Time Advance Directives No [place] 3rd, 2 023 2:41pm Reason for Referral Reason * FU 09/28 follow up hospitalization for symptomatic hyponatremia, [facility] [place] Dr. Lara ph [phone], fax [phone] Diagnosis 1 Hyponatremia (E87.1) Referral Organization [facility] Family Rodo John Referring Provider First Name Jada Referring Provider Last Name [facility] Referring Provider Specialty [facility] Referred Organization Will Villalp[facility] Referred Provider Romeo Lara Referred Address [address] [place], [place],[address] Referred Provider Specialty Internal Med icine Referral Priority Routine General Notes Gabrielle Reid 06/2023 01:35:25 PM > referral received and faxed Clinical Notes [facility] [place] Dr. Lara ph [phone], fax [phone] Reason hyponatremia, recent hospitalization [facility] for hyponatremia Diagnosis 1 Hyponatremia (E87.1) Referral Organization [facility] Rodo lancaster Dora Referring Provider First Name Jada Referring Provider Last Name [facility] Referring Provider Specialty [facility] [employer] Referred Organization [facility] Referred Address [address] [place], [place],[address] Referred Provider Specialty Nephrology Referral Priority Routine [...] section and content) DATE CREATED AUTHOR 06/03/2020 [facility] DATE CREATED AUTHOR AUTHOR'S ORGANIZ ATION 05/03/2024 [facility] DATE CREATED AUTHOR AUTHOR'S ORGANIZ ATION 08/17/2024 [facility] DATE CREATED AUTHOR AUTHOR'S ORGANIZ ATION 11/02/2024 [facility] DATE CREATED AUTHOR AUTHOR'S ORGANIZ ATION 11/14/2024 [facility] DATE CREATED AUTHOR AUTHOR'S ORGANIZ ATION 11/24/2024 [facility] DATE CREATED AUTHOR AUTHOR'S ORGANIZ ATION 11/25/2024 [facility] DATE CREATED AUTHOR AUTHOR'S ORGANIZ ATION 11/29/2024 [facility] DATE CREATED AUTHOR AUTHOR'S ORGANIZ ATION 12/21/2024 [facility] DATE CREATED AUTHOR AUTHOR'S ORGANIZ ATION 01/02/2025 [facility] DATE CREATED AUTHOR AUTHOR'S ORGANIZ ATION 01/11/2025 [facility] DATE CREATED AUTHOR AUTHOR'S ORGANIZ ATION 01/27/2025 [facility] DATE CREATED AUTHOR AUTHOR'S ORGANIZ ATION 02/06/2025 [facility] DATE CREATED AUTHOR AUTHOR'S ORGANIZ ATION 02/07/2025 [facility] DATE CREATED AUTHOR AUTHOR'S ORGANIZ ATION 02/22/2025 [facility] DATE CREATED AUTHOR AUTHOR'S ORGANIZ ATION 05/24/2025 [facility] DATE CREATED AUTHOR AUTHOR'S ORGANIZ ATION 06/03/2025 [facility] DATE CREATED AUTHOR AUTHOR'S ORGANIZ ATION 06/08/2025 [facility] DATE CREATED AUTHOR AUTHOR'S ORGANIZ ATION 06/09/2025 [facility] DATE CREATED AUTHOR AUTHOR'S ORGANIZ ATION 06/09/2025 [facility] DATE CREATED AUTHOR AUTHOR'S ORGANIZ ATION 06/14/2025 [facility] DATE CREATED AUTHOR AUTHOR'S ORGANIZ ATION 06/15/2025 [facility] DATE CREATED AUTHOR AUTHOR'S ORGANIZ ATION 07/23/2025 [facility] DATE CREATED AUTHOR AUTHOR'S ORGANIZ ATION 07/24/2025 [facility] DATE CREATED AUTHOR AUTHOR'S ORGANIZ ATION 07/27/2025 [facility] DATE CREATED AUTHOR AUTHOR'S ORGANIZ ATION 07/29/2025 [facility] REASON FOR VISIT (unrecogniz [...] any alcohol or drug abuse patient.[facility] Patient Care team informatio n (unrecognized section and content) Logistics Supply Officer Relationship Specialty Start Date End Date Edwin Garcia MD PCP - General Family Medicine 02/03/24 Logistics Supply Officer Relationship Specialty Start Date End Date Edwin Garcia MD PCP - General Family Medicine 02/03/24 Logistics Supply Officer Relationship Specialty Start Date End Date Edwin Garcia MD PCP - General Family Medicine 02/03/24 Logistics Supply Officer Relationship Specialty Start Date End Date Edwin Garcia MD PCP - General Family Medicine 02/03/24 Logistics Supply Officer Relationship Specialty Start Date End Date Edwin Garcia MD PCP - General Family Medicine 02/03/24 Logistics Supply Officer Relationship Specialty Start Date End Date Edwin Garcia MD [address] [place] [facility] [address] PCP - General Family Medicine 11/26/24 Logistics Supply Officer Relationship Specialty Start Date End Date Edwin Garcia MD [address] [place] [facility] [address] PCP - General Family Medicine 11/26/24 Logistics Supply Officer Relationship Specialty Start Date End Date Edwin Garcia MD [address] [place] [facility] [address] PCP - General Family Medicine 11/26/24 Logistics Supply Officer Relationship Specialty Start Date End Date Edwin Garcia MD [address] [place] [facility] [address] PCP - General Family Medicine 11/26/24 Logistics Supply Officer Relationship Specialty Start Date End Date Jaden Maravilla APRN - PHYSIOTHERAPY ASSISTANT [address] [place] [place] [address] PCP - General 06/05/25 Logistics Supply Officer Relationship Specialty Start Date End Date Yanique Mcneill APRN-BUSINESS PROCESS CONSULTANT [address] [place] [address] PCP - General Family Medicine 06/13/25 Logistics Supply Officer Relationship Specialty Start Date End Date Edwin Garcia MD [address] [place] [address] PCP - General Family Medicine 11/26/24 Team Status: Active Member Role Status Dates Yanique Mcneill [facility] Primary Care Provider Active Team Status: Active Member Role Status Dates Yanique Mcneill [facility] Primary Care Provider Active Start: July [...] July 19, 2025 End: July 23, 2025 lBossom Bee MD Other Provider Active Start : July 19, 2025 End: July 23, 2025 Rajan Aggarwal MD Other Provider Active S tart: July 19, 2025 End: July 23, 2025 Silvestre Luis MD Other Provider Active Start: July 19, 2025 End: July 23, 2025 Preethi Mena PHYSIOTHERAPY ASSISTANT-C Other Provider Active Star t: July 19, [...] Monico Kaiser RN)1432 (Given - Provider: Flip uDbose RN)2153 (Given - Provider: Nancy Fox, RN) [...] 1400, Until Discontinued 1310 (Given - Provider: aPt Nieves RN)2100 (Due) 0852 (Given - Provider: [...] for injection by adding 1 mL of seed district sales manager-supplied sterile diluent or sterile water for injection [...] hr <60 1014 (Given - Provider: Debra Huggins, ERIN) gabapentin (NEURONTIN) capsule 300 mg (CANCELED) [...] Medication Order 06/21/2025 06/22/2025 06/23/2025 heparin infusion 27572 units/500 mL in 0.45% NaCl (50 units/mL [...] BE BASED ON THE PRIMARY CLINICAL RECORDS. [email or web address] provides no warranty or guarantee of the accuracy or completeness of information in this document.
--- NOTE | 2025-07-30 12:36 | SWNOTE1 ---
SW met with pt to discuss dc needs. Pt was sleeping in bed, pt's was on couch and answered all questions. Pt lives at home with . Pt does not use any DME at home and has no services coming in at home at this time. Pt's spoke of her home health coming in and feels that pt may benefit from home health nurse for a short time. She stated that he has not had an appetite past day or 2 and that he seems a little more weak and confused. She mentioned that he was transferred to [facility] a few days ago and possibly had Diverticulitis? She also mentioned her PCP had mentioned possibly Dementia, but never a true diagnosis. She would like to see what is all going on with pt medically and then determine discharge plans. She mentioned pt had been at [place] in past as well for rehab. JACQUELYN advised pt's that SW will be back in later today or tomorrow to discuss in more detail.
[2025-07-30 14:45] LABS: Anion Gap 11.5; Blood Urea Nitrogen 16.0 mg/dL (7.0-18.0); Calcium 9.0 mg/dL (8.5-10.1); Carbon Dioxide 25.8 mmol/L (21.0-32.0); Chloride 89 mmol/L (98-107); Estimated GFR (African America >60 (>=60 mL/min/1.73m^2); Estimated GFR (Non-African Ame >60 (>=60 mL/min/1.73m^2); Glucose 123 mg/dL (74-106); Potassium 4.3 mmol/L (3.5-5.1)
[2025-07-30 14:52] LABS: Sodium 122 mmol/L (136-145)
--- NOTE | 2025-07-30 15:50 | PM.HP ---
HPI H&P: HPI History of Present Illness Chief complaint: ALTERED MENTAL HYPONATREMIA GENERALIZED WEAKNESS Narrative: Mr. Aguilera is an 85-year-old gentleman with a known history of hyponatremia related back to 2022. Patient was brought to the emergency room by his family with report of worsening ability to respond quickly to interaction, slower gait, feeling fatigued and tired. He was found to have significant hyponatremia with a sodium level at 121. No fever or chills. No focal weakness or numbness. Patient denies any chest pain or palpitation. He is a very poor historian. He has significant hearing loss. Able to answer yes or no questions. Able to follow simple command. Unable to engage in any meaningful conversation or provide any useful information. Opioid HPI Opioid Management Most Recent Pain and Opioid Data: Last Pain Scale 0 06/13/25, 09:05 Last Pain Intensity 0 06/13/25, 09:05 Last Pain Assessment Today, 11:00 Last ORT Total Score 0 Today, 10:03 Last ORT Risk Category Low Risk Today, 10:03 Ur Phencyclidine Scrn, (NEGATIVE) Negative 08/21/23, 03:22 Review of Systems ROS Status of ROS 10 or more systems reviewed and unremarkable except as noted in history and below [facility] Medical History (Updated 07/30/25 @ 15:53 by Paulo Hyatt MD) Diverticulitis ?K57.92 - Diverticulitis of intestine, part unspecified, without perforation or abscess without bleeding (ICD-10) Hyponatremia ?E87.1 - Hypo-osmolality and hyponatremia (ICD-10) Paroxysmal atrial fibrillation ?I48.0 - Paroxysmal atrial fibrillation (ICD-10) Syncope ?R55 - Syncope and collapse (ICD-10) Abrasion of scalp ?S00.01XA - Abrasion of scalp, initial encounter (ICD-10) Closed head injury ?S09.90XA - Unspecified injury of head, initial encounter (ICD-10) Laceration of scalp ?S01.01XA - Laceration without foreign body of scalp, initial encounter (ICD-10) Low back pain ?M54.50 - Low back pain, unspecified (ICD-10) Lumbar spondylosis ?M47.816 - Spondylosis without myelopathy or radiculopathy, lumbar region (ICD-10) Thoracic back pain ?M54.6 - Pain in thoracic spine (ICD-10) 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 - Other specified mononeuropathies (ICD-10) Paresthesias in right hand ?R20.2 - Paresthesia of skin (ICD-10) Foreign body in right ear ?T16.1XXA - Foreign body in right ear, initial encounter (ICD-10) Hyponatremia ?E87.1 - Hypo-osmolality and hyponatremia (ICD-10) Hypomagnesemia ?E83.42 - Hypomagnesemia (ICD-10) RADHA (acute kidney injury) ?N17.9 - Acute kidney failure, unspecified (ICD-10) Influenza ?J11.1 - Influenza due to unidentified influenza virus with other respiratory manifestations (ICD-10) Hypomagnesemia ?E83.42 - Hypomagnesemia (ICD-10) Acute hyponatremia ?E87.1 - Hypo-osmolality and hyponatremia (ICD-10) Acute confusion ?R41.0 - Disorientation, unspecified (ICD-10) Diabetes ?E11.9 - Type 2 diabetes mellitus without complications (ICD-10) High cholesterol ?E78.00 - Pure hypercholesterolemia, unspecified (ICD-10) Surgical History Hx of carpal tunnel repair ?Z98.890 - Other specified postprocedural states (ICD-10) Family History Father Family history of myocardial infarction Family history of hypertension Mother Family history of cancer Family history of diabetes mellitus Social History (Updated 06/12/25 @ 22:04 by Edda Yap RN) Within the past year, how often did you have a drink containing alcohol: 2-4 times a month Smoking status: Never smoker Second hand tobacco smoke exposure: No Non-prescribed substance use: denies use Known occupational exposures/hazards: No Highest level of school completed/degree received: high school graduate Are you now , , , , never or living with a partner: Little interest or pleasure in doing things: not at all Feeling down, depressed, or hopeless: not at all Feel stressed/tense/nervous/anxious/difficulty sleeping: not at all Gender Identity: male Gender Identity Comment: Unable to assess due to AMS, Expressive aphasia. Meds Home Medications and Allergies Home Medications ?Medication ?Instructions ?Recorded ?Confirmed ?Type glimepiride 2 mg tablet 2 mg PO DAILY 08/21/23 07/30/25 History levothyroxine 25 mcg tablet 25 mcg PO QAM 08/21/23 07/30/25 History pravastatin 40 mg tablet 40 mg PO DAILY 08/21/23 07/30/25 History tamsulosin 0.4 mg capsule 0.4 mg PO DAILY 08/21/23 07/30/25 History finasteride 5 mg tablet 5 mg PO DAILY 11/13/23 07/30/25 History gabapentin 300 mg capsule 300 mg PO DAILY 08/13/24 07/30/25 History aspirin 81 mg tablet,delayed 81 mg PO QD 5 days #5 tabs 06/13/25 07/30/25 Rx release atenolol 25 mg tablet 12.5 mg PO DAILY 06/13/25 07/30/25 History apixaban 5 mg tablet (Eliquis) 5 mg PO Q12H 07/19/25 07/30/25 History meloxicam 7.5 mg tablet 7.5 mg PO DAILY 07/19/25 07/30/25 History sodium chloride 1,000 mg soluble 1,000 mg PO BID 07/19/25 07/30/25 History tablet lisinopril 10 mg tablet 10 mg PO DAILY 07/30/25 History omeprazole 40 mg capsule,delayed 40 mg PO DAILY 07/30/25 07/30/25 History release Allergies Allergy/AdvReac Type Severity Reaction Status Date / Time No Known Drug Allergies Allergy Verified 07/30/25 07:12 Exam Narrative Exam Narrative: Patient is sitting in bed. Cachectic and frail in appearance. Bitemporal muscle wasting. Upper and lower extremities muscle wasting atrophy. Significant hearing loss. Dry buccal mucosa. Neck is supple. Chest is clear, heart is irregular. Abdomen soft, nontender. Lower extremities no edema. Osteoarthritis deformities. Functional status is impaired. Symmetrical motor and tone needing assistance to standing up and ambulating. Cognition is impaired. Hearing loss adding to the communication difficulty. Able to answer yes/no questions. Significant loss of insight. He does not know why he is in the hospital. Symmetrical motor and tone. Constitutional Vital Signs, click to edit/add: Last Vital Signs Temp 97.4 F L 07/30/25 10:25 Pulse 68 07/30/25 13:53 Resp 18 07/30/25 10:25 BP 114/70 07/30/25 10:25 Pulse Ox 94 L 07/30/25 10:25 O2 Del Method Room Air 07/30/25 10:25 Results Labs Labs: Short CBC 07/30/25 Range/Units 07:23 WBC 5.3 (4.0-11.0) 10^3/uL Hgb 14.7 (14.0-18.0) g/dL Hct 39.4 L (42.0-54.0) % Plt Count 288 (150-450) 10^3/uL BMP 07/30/25 07/30/25 07:23 14:27 Sodium 121 L* 122 L* Potassium 4.6 4.3 Chloride 87 L 89 L Carbon Dioxide 25.9 25.8 BUN 20.0 H 16.0 Creatinine 0.81 0.81 Glucose 121 H 123 H Calcium 9.6 9.0 Liver Function 07/30/25 Range/Units 07:23 Total Bilirubin 1.2 H (0.2-1.0) mg/dL AST 24 (15-37) U/L ALT 23 (16-63) U/L Alkaline Phosphatase 88 (46-116) U/L Albumin 4.0 (3.4-5.0) g/dL Assessment and Plan Assessment and Plan (1) Generalized weakness: (2) Hyponatremia: (3) Dehydration: (4) Encephalopathy: (5) Hearing loss: (6) Cachexia: (7) Atrial fibrillation: (8) Type 2 diabetes mellitus with hyperglycemia: (9) Adult hypothyroidism: Plan Hyponatremia, chronic and intermittent. Patient has had hyponatremia dated all the way to as far as we have recorded here in [facility], 2022 Low chloride level, low blood pressure. Suspect hypovolemic hyponatremia. Patient is already on salt tablet 1000 mg twice a day. Patient is on Synthroid making a possibility of hypothyroidism as a trigger for his hyponatremia less likely. Requested cortisol level rule out adrenal insufficiency. Requested serum and urine osmolality. Patient recently had MRI of the brain in May which does not show any brain tumor or aneurysm that could be contributing to his hyponatremia. Started patient on gentle IV fluid infusion. BMP every 8 hours. Correct sodium at a rate no more than 8 mEq in 20 hours. Water restriction Atrial fibrillation, chronic. Patient is on Eliquis. Patient is on beta-dimitris for rate control. Continue current medication. Diabetes on glyburide. Not sure if glyburide is the best option for him due to increased risk of hypoglycemia. Hold glyburide at this time. Start him on insulin as well as DPP 4 and metformin Hypertension. Currently borderline hypotensive Hold lisinopril. Continue atenolol due to A-fib to prevent tachycardia Reported history of BPH. Patient is on Flomax and Proscar. Requested bladder scan to screen for retention Hearing loss, significant cognitive loss, moderate functional loss I believe that patient has vascular dementia or some other type of neurodegenerative disorder. Recent MRI showed microvascular disease. Continue secondary stroke prevention. Apply hearing aid. PT OT eval and treatment. Fall precautions Assess his home situation, safety and need. Discussed anticoagulation risk and benefit with the . Chronic medical conditions not listed above, incidental findings seen on labs and imaging. These would need to be addressed. Could be addressed when time and condition are appropriate. Could be addressed in the outpatient setting by PCP collaboration with other needed outpatient providers.
--- NOTE | 2025-07-30 16:01 | W.ACP ---
Advance Care Planning Advance Care Planning Discussion Advance care planning discussion participants: other family member Advance care planning discussion summary: Advance care planning and goals of care discussion. Conversation lasted for 30 minutes. I called his Leelee. I gave her update on his condition, status and tx plan. She gave me information on acute and chronic condition. I explained in simple terms the difference between full code, CCA and CC I explained in laymens terms the difference between aggressive and comfort care approach. I explained of the process of CPR including chest compressions, shocks, intubation and life support. I answered all of her questions related to that. Leelee stated that she and Dariel discussed this in the past. Dariel does not want to extend his living heroically. He does not want any resuscitative effort. Leelee stated that when his time comes just let him go. He is which is as relayed to me by his Leelee are consistent with the CCA status Change CODE STATUS accordingly
[2025-07-30] MEDS: ASPIRIN 81 MG TABLET.DR PO (16:07)
[2025-07-30] MEDS: 0.9 % SODIUM CHLORIDE 1,000 ML 70 ML IV (16:08)
[2025-07-30] MEDS: SODIUM CHLORIDE 1,000 MG TABLET 1000 MG PO (21:21)
[2025-07-30] MEDS: APIXABAN 5 MG TABLET PO (21:21)
[2025-07-30] MEDS: ATORVASTATIN CALCIUM 10 MG TABLET PO (21:21)
[2025-07-30] MEDS: ZOLPIDEM TARTRATE 5 MG TABLET PO (21:21)
[2025-07-30 22:14] LABS: Anion Gap 11.4; Blood Urea Nitrogen 15.0 mg/dL (7.0-18.0); Calcium 8.8 mg/dL (8.5-10.1); Carbon Dioxide 25.0 mmol/L (21.0-32.0); Chloride 92 mmol/L (98-107); Estimated GFR (African America >60 (>=60 mL/min/1.73m^2); Estimated GFR (Non-African Ame >60 (>=60 mL/min/1.73m^2); Glucose 113 mg/dL (74-106); Potassium 4.4 mmol/L (3.5-5.1)
[2025-07-30 22:18] LABS: Sodium 124 mmol/L (136-145)
[2025-07-30 23:39] LABS: Glucose Urine UA NEGATIVE (NEGATIVE)
[2025-07-31] VITALS (20 sets, daily range): BP systolic 101–121; BP diastolic 53–63; PULSE 37–86; TEMP 36.3–36.8; O2SAT 95–98
[2025-07-31] MEDS: PANTOPRAZOLE SODIUM 40 MG TABLET.DR PO (05:40)
[2025-07-31 07:04] LABS: Anion Gap 10.7; Blood Urea Nitrogen 11.0 mg/dL (7.0-18.0); Calcium 9.1 mg/dL (8.5-10.1); Carbon Dioxide 25.5 mmol/L (21.0-32.0); Chloride 92 mmol/L (98-107); Estimated GFR (African America >60 (>=60 mL/min/1.73m^2); Estimated GFR (Non-African Ame >60 (>=60 mL/min/1.73m^2); Glucose 102 mg/dL (74-106); Potassium 4.2 mmol/L (3.5-5.1)
[2025-07-31 07:14] LABS: Sodium 124 mmol/L (136-145)
[2025-07-31 07:15] LABS: Thyroid Stimulating Hormone 2.137 uIU/mL (0.358-3.740)
[2025-07-31] MEDS: 0.9 % SODIUM CHLORIDE 1,000 ML 70 ML IV ×2 (07:16→21:27)
--- NOTE | 2025-07-31 08:00 | CM.NOTE ---
Rounds made with Dr. Hyatt, discussed with pt reason for admission and plan of care. Discussed status with Dr. Hyatt, pt will be inpatient status. No discharge today.
[2025-07-31] MEDS: FINASTERIDE 5 MG TABLET PO (09:09)
[2025-07-31] MEDS: APIXABAN 5 MG TABLET PO ×2 (09:09→21:26)
[2025-07-31] MEDS: LEVOTHYROXINE SODIUM 25 MCG TABLET PO (09:09)
[2025-07-31] MEDS: TAMSULOSIN HCL 0.4 MG CAPSULE PO (09:09)
[2025-07-31] MEDS: SODIUM CHLORIDE 1,000 MG TABLET 1000 MG PO ×2 (09:09→13:28)
[2025-07-31] MEDS: ASPIRIN 81 MG TABLET.DR PO (09:09)
[2025-07-31] MEDS: ATENOLOL 25 MG TABLET 12.5 MG PO (09:09)
--- NOTE | 2025-07-31 09:30 | P.PN_ITS ---
Progress Note: Subjective Subjective Interval history: Follow-up outpatient. Uneventful night. No change in condition. Patient denies any chest pain or abdominal pain Exam Narrative Exam Narrative: Patient is sitting in bed. Cachectic and frail in appearance. Bitemporal muscle wasting. Upper and lower extremities muscle wasting atrophy. Significant hearing loss. Dry buccal mucosa. Neck is supple. Chest is clear, heart is irregular. Abdomen soft, nontender. Lower extremities no edema. Osteoarthritis deformities. Functional status is impaired. Symmetrical motor and tone needing assistance to standing up and ambulating. Cognition is impaired. Hearing loss adding to the communication difficulty. Able to answer yes/no questions. Significant loss of insight. He does not know why he is in [facility]. Symmetrical motor and tone. Constitutional Vital Signs, click to edit/add: Last Vital Signs Temp 97.4 F L 07/31/25 07:22 Pulse 63 07/31/25 07:59 Resp 18 07/31/25 07:22 BP 118/63 07/31/25 07:22 Pulse Ox 96 07/31/25 07:22 O2 Del Method Room Air 07/31/25 07:22 Progress Note: Objective Labs Labs: BMP 07/30/25 07/30/25 07/31/25 14:27 21:54 06:28 Sodium 122 L* 124 L* 124 L* Potassium 4.3 4.4 4.2 Chloride 89 L 92 L 92 L Carbon Dioxide 25.8 25.0 25.5 BUN 16.0 15.0 11.0 Creatinine 0.81 0.63 L 0.60 L Glucose 123 H 113 H 102 Calcium 9.0 8.8 9.1 Urine 07/30/25 Range/Units 23:25 Urine Color Lt. yellow (YELLOW) Urine Clarity Clear (CLEAR) Urine pH 6.0 (5.0-9.0) Ur Specific [place] <=1.005 A (1.005-1.025) Urine Protein Negative (NEG/TRACE) mg/dL Urine Glucose (UA) Negative (NEGATIVE) mg/dL Progress Note: A&P Assessment and Plan (1) Generalized weakness: (2) Hyponatremia: (3) Dehydration: (4) Encephalopathy: (5) Hearing loss: (6) Cachexia: (7) Atrial fibrillation: (8) Type 2 diabetes mellitus with hyperglycemia: (9) Adult hypothyroidism: Plan Hyponatremia, chronic and intermittent. Patient has had hyponatremia dated all the way to as far as we have recorded here in [facility], 2022 Low chloride level, low blood pressure. Suspect hypovolemic hyponatremia. Patient is already on salt tablet 1000 mg twice a day. Patient is also on urea daily as reported by his Patient is on Synthroid making a possibility of hypothyroidism as a trigger for his hyponatremia less likely. TSH is normal Requested cortisol level rule out adrenal insufficiency. Pending Requested serum and urine osmolality. Pending. Previous serum osmolality noted to be low suspecting SIADH versus polydipsia. Patient recently had MRI of the brain in May which does not show any brain tumor or aneurysm that could be contributing to his hyponatremia. Started patient on gentle IV fluid infusion. BMP every 8 hours. Correct sodium at a rate no more than 8 mEq in 20 hours. Water restriction Atrial fibrillation, chronic. Patient is on Eliquis. Patient is on beta- dimitris for rate control. Continue current medication. Diabetes on glyburide. Not sure if glyburide is the best option for him due to increased risk of hypoglycemia. Hold glyburide at this time. Start him on insulin as well as DPP 4 and metformin Hypertension. Currently borderline hypotensive Hold lisinopril. Continue atenolol due to A-fib to prevent tachycardia Cachexia, frailty, muscle wasting, mild to moderate protein calorie malnutrition Start the patient on oral protein supplementation. The patient may need to undergo weight loss and cachexia workup including cancer screening and/or malabsorption. To be arranged by PCP. Reported history of BPH. Patient is on Flomax and Proscar. Requested bladder scan to screen for retention Hearing loss, significant cognitive loss, moderate functional loss I believe that patient has vascular dementia or some other type of neurodegenerative disorder. Recent MRI showed microvascular disease. Continue secondary stroke prevention. Apply hearing aid. PT OT eval and treatment. Follow-up on PT recommendation. Fall precautions Assess his home situation, safety and need. Discussed anticoagulation risk and benefit with the . stated that she can take care of him at home. On 07/30 I made aware of potential risk of anticoagulation in the setting of functional decline, increased risk of falls, body injury and a bleed. She is unable to make a decision as to whether to continue or discontinue Eliquis. Chronic medical conditions not listed above, incidental findings seen on labs and imaging. These would need to be addressed. Could be addressed when time and condition are appropriate. Could be addressed in the outpatient setting by PCP collaboration with other needed outpatient providers.
[2025-07-31] MEDS: SITAGLIPTIN PHOSPHATE 50 MG TABLET 100 MG PO (09:47)
[2025-07-31] MEDS: ENSURE HP 237 ML LIQUID PO ×2 (09:47→13:28)
--- NOTE | 2025-07-31 11:33 | SWNOTE1 ---
Important Message from Medicare reviewed and discussed with patient and patient's , Leelee. Pt and Leelee verbalized understanding and Jose A signed the form. Original given to patient's and copy placed in patient?s chart.
--- NOTE | 2025-07-31 11:34 | SWNOTE1 ---
SW spoke with pt and pt's Leelee in the room. Pt was sitting up in the chair. SW asked pt how he was feeling? He shook his hand back and forth and said so-so. Pt's voiced she felt like he has improved since yesterday. SW asked how therapy went. She stated he did well and he worked with them for awhile. SW advised pt's that he went 500 feet, which is quite well. SW asked if he has been talking to her more, she stated yes. Pt is hard of hearing, but SW spoke to both of them about home health services for a short time and then doing outpt therapy. Pt looked at . Pt's , Leelee, is in agreement. She asked how often they would come? SW advised possibly a few times of the week for a short time. PT/OT and skilled nurse. SW advised that his insurance will likely approve for a certain number of visits. She stated that is what they did with her as well. She thinks she had [facility]. JACQUELYN asked who they would like to use and provided a list from Medicare.gov. Pt's would like to use [facility] at this time. SW to send referral. SW asked if she had any further questions? She stated no, not at this time. Referral sent to [facility]. Referral included face sheet, ED note, H&P, provider notes, case management report, and PT/OT notes.
[2025-07-31] MEDS: INSULIN ASPART 300 UNIT/3 ML PEN SUBQ ×2 (11:35→16:31)
--- NOTE | 2025-07-31 11:38 | SWNOTE1 ---
SW did also explain to pt and that once he is done with home health, he would benefit from going to outpt therapy as well. SW advised there is outpt therapy across the street from the hospital. The home health company can assist with this once they are complete or his primary care physician can assist as well. SW explained that he can't do home health and outpt and that it would be beneficial to start with home health. Pt's voiced understanding.
--- NOTE | 2025-07-31 13:12 | SWNOTE1 ---
SW received a call from Eda at [facility] and they are able to accept.
[2025-07-31 14:33] LABS: Anion Gap 11.0; Blood Urea Nitrogen 13.0 mg/dL (7.0-18.0); Calcium 8.5 mg/dL (8.5-10.1); Carbon Dioxide 25.2 mmol/L (21.0-32.0); Chloride 93 mmol/L (98-107); Estimated GFR (African America >60 (>=60 mL/min/1.73m^2); Estimated GFR (Non-African Ame >60 (>=60 mL/min/1.73m^2); Glucose 128 mg/dL (74-106); Potassium 4.2 mmol/L (3.5-5.1); Sodium 125 mmol/L (136-145)
[2025-07-31] MEDS: SODIUM CHLORIDE 1,000 MG TABLET 2000 MG PO (21:26)
[2025-07-31] MEDS: ATORVASTATIN CALCIUM 10 MG TABLET PO (21:26)
[2025-07-31] MEDS: HALOPERIDOL LACTATE 5 MG/ML VIAL 2.5 MG IM (21:26)
[2025-07-31] MEDS: ZOLPIDEM TARTRATE 5 MG TABLET PO (21:26)
[2025-08-01] VITALS (21 sets, daily range): BP systolic 91–127; BP diastolic 50–75; PULSE 31–102; TEMP 36.2–37.2; O2SAT 97–99
[2025-08-01 03:50] LABS: Anion Gap 10.9; Blood Urea Nitrogen 9.0 mg/dL (7.0-18.0); Calcium 9.0 mg/dL (8.5-10.1); Carbon Dioxide 25.2 mmol/L (21.0-32.0); Chloride 98 mmol/L (98-107); Estimated GFR (African America >60 (>=60 mL/min/1.73m^2); Estimated GFR (Non-African Ame >60 (>=60 mL/min/1.73m^2); Glucose 136 mg/dL (74-106); Potassium 4.1 mmol/L (3.5-5.1); Sodium 130 mmol/L (136-145)
[2025-08-01] MEDS: LEVOTHYROXINE SODIUM 25 MCG TABLET PO (05:55)
[2025-08-01] MEDS: PANTOPRAZOLE SODIUM 40 MG TABLET.DR PO (05:55)
[2025-08-01] MEDS: SODIUM CHLORIDE 1,000 MG TABLET 2000 MG PO (05:55)
--- NOTE | 2025-08-01 07:50 | CM.NOTE ---
Addendum entered by Lea Hayse 08/01/25 10:10: Dr. Hyatt discussed with pt about skilled therapy at discharge. Pt very adamant he does not want to go to long term for skilled therapy. CM or SW will talk to again today regarding discharge planning. Original Note: Rounds made with Dr. Hyatt, discussed with pt plan of care and possible discharge to home today. Pt will discharge with [facility] and f/u with Britt Mcneill.
[2025-08-01] MEDS: APIXABAN 5 MG TABLET PO ×2 (08:55→21:41)
[2025-08-01] MEDS: ASPIRIN 81 MG TABLET.DR PO (08:55)
[2025-08-01] MEDS: SITAGLIPTIN PHOSPHATE 50 MG TABLET 100 MG PO (08:58)
[2025-08-01] MEDS: FINASTERIDE 5 MG TABLET PO (08:58)
[2025-08-01] MEDS: TAMSULOSIN HCL 0.4 MG CAPSULE PO (08:59)
--- NOTE | 2025-08-01 11:36 | P.PN_ITS ---
Progress Note: Subjective Subjective Interval history: Patient became delirious last night requiring the use of Haldol. He is calm at this morning. He is up in a chair. Exam Narrative Exam Narrative: Patient is sitting in bed. Cachectic and frail in appearance. Bitemporal muscle wasting. Upper and lower extremities muscle wasting atrophy. Significant hearing loss. Dry buccal mucosa. Neck is supple. Chest is clear, heart is irregular. Abdomen soft, nontender. Lower extremities no edema. Osteoarthritis deformities. Functional status is impaired. Symmetrical motor and tone needing assistance to standing up and ambulating. Cognition is impaired. Hearing loss adding to the communication difficulty. Able to answer yes/no questions. Significant loss of insight. He does not know why he is in the hospital. Symmetrical motor and tone. Constitutional Vital Signs, click to edit/add: Last Vital Signs Temp 97.1 F L 08/01/25 08:05 Pulse 67 08/01/25 11:10 Resp 16 08/01/25 10:13 BP 118/64 08/01/25 08:05 Pulse Ox 99 08/01/25 08:05 O2 Del Method Room Air 08/01/25 08:05 Progress Note: Objective Labs Labs: [facility] 07/31/25 08/01/25 14:20 03:21 Sodium 125 L 130 L Potassium 4.2 4.1 Chloride 93 L 98 Carbon Dioxide 25.2 25.2 BUN 13.0 9.0 Creatinine 0.69 L 0.72 Glucose 128 H 136 H Calcium 8.5 9.0 Progress Note: A&P Assessment and Plan (1) Generalized weakness: (2) Hyponatremia: (3) Dehydration: (4) Encephalopathy: (5) Hearing loss: (6) Cachexia: (7) Atrial fibrillation: (8) Type 2 diabetes mellitus with hyperglycemia: (9) Adult hypothyroidism: Plan Hyponatremia, chronic and intermittent. Patient has had hyponatremia dated all the way to as far as we have recorded here in [employer], 2022 Low chloride level, low blood pressure. Suspect hypovolemic hyponatremia. Patient is already on salt tablet 1000 mg twice a day. Patient is also on urea daily as reported by his Patient is on Synthroid making a possibility of hypothyroidism as a trigger for his hyponatremia less likely. TSH is normal Requested cortisol level rule out adrenal insufficiency. Pending Requested serum and urine osmolality. Pending. Previous serum osmolality noted to be low suspecting SIADH versus polydipsia. Patient recently had MRI of the brain in May which does not show any brain tumor or aneurysm that could be contributing to his hyponatremia. Sodium level is up to 130. Discontinue normal saline infusion, continue sodium chloride tablet. Potential discharge tomorrow. BMP weekly by home health care. Atrial fibrillation, chronic. Patient is on Eliquis. Patient is on beta-blo cker for rate control. Continue current medication. Diabetes on glyburide. Not sure if glyburide is the best option for him due to increased risk of hypoglycemia. Hold glyburide at this time. Start him on insulin as well as DPP 4 and or metformin Hypertension. Currently borderline hypotensive Hold lisinopril. Continue atenolol due to A-fib to prevent tachycardia Cachexia, frailty, muscle wasting, mild to moderate protein calorie malnutrition Start the patient on oral protein supplementation. The patient may need to undergo weight loss and cachexia workup including cancer screening and/or malabsorption. To be arranged by PCP. Reported history of BPH. Patient is on Flomax and Proscar. Requested bladder scan to screen for retention Hearing loss, significant cognitive loss, moderate functional loss I believe that patient has vascular dementia or some other type of neurodegenerative disorder. Recent MRI showed microvascular disease. Continue secondary stroke prevention. Apply hearing aid. PT OT eval and treatment. Follow-up on PT recommendation. Fall precautions Assess his home situation, safety and need. Discussed anticoagulation risk and benefit with the . stated that she can take care of him at home. On 07/30 I made aware of potential risk of anticoagulation in the setting of functional decline, increased risk of falls, body injury and a bleed. She is unable to make a decision as to whether to continue or discontinue Eliquis. declined to allow for senior living placement. She is aware of potential risks and implications. She wants to take him home Chronic medical conditions not listed above, incidental findings seen on labs and imaging. These would need to be addressed. Could be addressed when time and condition are appropriate. Could be addressed in the outpatient setting by PCP collaboration with other needed outpatient providers.
--- NOTE | 2025-08-01 11:49 | PM.EN ---
Event Note Event Note: I had a meeting with his . I gave her update on his condition, status and treatment plan. described his cognitive status is poor. Furthermore we discussed the use of Eliquis, risk and benefit. Benefit of stroke prevention versus risk of bleed specifically if patient.. stated that patient has not been following down. She is leaning toward keeping him on Eliquis understanding potential risk for falls, body injury and bleed. Her final decision is to keep him on Eliquis for now
--- NOTE | 2025-08-01 12:23 | SWNOTE1 ---
SW and case management went back in and spoke with pt and his Leelee. We conversed about how patient gets around at home. Pt's did voiced he is able to get around and get the things done that he wants and needs to. She is uncertain if pt has left sided weakness at home. SW and case management did speak with pt and about half-way facility for rehab for a short time. Pt voiced he is done with hospitals and doctors and [place]. Pt very strongly refused the need to go to half-way facility and will be going home at discharge. Pt's is in agreement as long as home health is set up. SW re-assured pt's that we have set up [facility] to come in. SW advised they will call her to schedule visits with her. SW advised they usually call within 48 hours of discharge, but SW will make sure the phone number for [facility] is on the discharge paperwork and she can call if she does not hear from them. Pt's also voiced concerns about him returning home today and that she had apt tomorrow and nobody would be able to be with pt. advised there is a possibility of discharge today, but have to speak with Dr. Hyatt and check. She voiced understanding. Pt is not going to be discharged today, likely tomorrow. JACQUELYN did call and speak with [facility] at [facility] and they are able to complete lab draws as long as a skilled nurse is ordered and if they have the orders on the CRF. SW let case management know.
[2025-08-01] MEDS: SODIUM CHLORIDE 1,000 MG TABLET 1000 MG PO ×2 (13:26→21:41)
--- NOTE | 2025-08-01 13:31 | REH.PTDLY ---
Physical Therapy Daily Note PT Daily Note/Assess Start: 08/01/25 13:27 Freq: Status: Active Protocol: Document 08/01/25 13:27 JAKE (Rec: 08/01/25 13:31 JAKE [id number]) Visit Not Completed Visit Not Completed Pt refusing Due to: Other Reason Visit Attempted to see pt, but states his lunch should Not Completed be coming soon. Told pt and that I would be back right after lunch. Attempted second time less than an hour later and pt is already back in bed. Pt declines getting up to go for a walk or performing supine LE exs at this time. Physical Therapy Daily Note/Assessment Time In 13:16 Time Out 13:21
[2025-08-01 18:38] LABS: Anion Gap 12.8; Blood Urea Nitrogen 8.0 mg/dL (7.0-18.0); Calcium 8.6 mg/dL (8.5-10.1); Carbon Dioxide 25.2 mmol/L (21.0-32.0); Chloride 100 mmol/L (98-107); Estimated GFR (African America >60 (>=60 mL/min/1.73m^2); Estimated GFR (Non-African Ame >60 (>=60 mL/min/1.73m^2); Glucose 176 mg/dL (74-106); Potassium 4.0 mmol/L (3.5-5.1); Sodium 134 mmol/L (136-145)
[2025-08-01] MEDS: ACETAMINOPHEN 325 MG TABLET 650 MG PO (21:40)
[2025-08-01] MEDS: ATORVASTATIN CALCIUM 10 MG TABLET PO (21:41)
[2025-08-02] VITALS: BP 110/65; PULSE 67; PULSE 80; TEMP 36.5; O2SAT 96
[2025-08-02 01:56] VITALS: PULSE 68
[2025-08-02 04:00] VITALS: BP 120/59; PULSE 67; PULSE 72; TEMP 36.3; O2SAT 96
[2025-08-02 06:00] VITALS: PULSE 66
[2025-08-02 06:00] LABS: Anion Gap 12.6; Blood Urea Nitrogen 8.0 mg/dL (7.0-18.0); Calcium 8.9 mg/dL (8.5-10.1); Carbon Dioxide 24.4 mmol/L (21.0-32.0); Chloride 100 mmol/L (98-107); Estimated GFR (African America >60 (>=60 mL/min/1.73m^2); Estimated GFR (Non-African Ame >60 (>=60 mL/min/1.73m^2); Glucose 107 mg/dL (74-106); Potassium 4.0 mmol/L (3.5-5.1); Sodium 133 mmol/L (136-145)
[2025-08-02] MEDS: SODIUM CHLORIDE 1,000 MG TABLET 1000 MG PO (06:46)
[2025-08-02] MEDS: LEVOTHYROXINE SODIUM 25 MCG TABLET PO (06:46)
[2025-08-02] MEDS: PANTOPRAZOLE SODIUM 40 MG TABLET.DR PO (06:46)
[2025-08-02 07:56] VITALS: PULSE 68
[2025-08-02 08:00] VITALS: BP 104/46; PULSE 72; TEMP 36.5; O2SAT 97
--- NOTE | 2025-08-02 08:20 | CM.NOTE ---
Rounds made with Dr. Hyatt, pt will discharge today with [facility] services. Pt will also have BMP drawn after discharge. Completed on CRF.
--- NOTE | 2025-08-02 08:45 | CM.NOTE ---
2nd Important Message From Medicare discussed, denies questions or concerns.
--- NOTE | 2025-08-02 09:44 | CM.NOTE ---
CRF completed for pt's discharge. SW will fax discharge summary to [facility]. Pt has appointment for f/u with Britt Laird.
[2025-08-02] MEDS: TAMSULOSIN HCL 0.4 MG CAPSULE PO (09:55)
[2025-08-02] MEDS: APIXABAN 5 MG TABLET PO (09:55)
[2025-08-02] MEDS: ASPIRIN 81 MG TABLET.DR PO (09:55)
[2025-08-02] MEDS: FINASTERIDE 5 MG TABLET PO (09:55)
[2025-08-02] MEDS: ATENOLOL 25 MG TABLET 12.5 MG PO (09:55)
[2025-08-02] MEDS: SITAGLIPTIN PHOSPHATE 50 MG TABLET 100 MG PO (09:56)
--- NOTE | 2025-08-02 11:06 | P.DS_ITS ---
DS: Providers Provider Date of admission: 07/30/25 09:58 Primary care physician: Britt Mcneill NP Consults: 07/30/25 15:44 Occupational Therapy Eval and Treat Routine Reason for consultation: Weakness Physical Therapy Eval and Treat Routine Reason for consultation: Weakness DS: Diagnosis Discharge Diagnosis (1) Generalized weakness: (2) Hyponatremia: (3) Dehydration: (4) Encephalopathy: (5) Hearing loss: (6) Cachexia: (7) Atrial fibrillation: (8) Type 2 diabetes mellitus with hyperglycemia: (9) Adult hypothyroidism: Plan As listed above, below and others that are not listed DS: Summary Hospital Course Hospital Course: Mr. Aguilera is an 85-year-old gentleman who came in with generalized weakness. He was found to have the following: Hyponatremia, chronic and intermittent. Patient has had hyponatremia dated all the way to as far as we have recorded here in [facility], 2022 Sodium level corrected up to 133 Low chloride level, low blood pressure. Suspect hypovolemic hyponatremia. Patient is already on salt tablet 1000 mg twice a day. Patient is also on urea daily as reported by his . Patient will be instructed to take salt tablet 3 times a day instead of twice a day. Patient is on Synthroid making a possibility of hypothyroidism as a trigger for his hyponatremia less likely. TSH is normal Requested cortisol level rule out adrenal insufficiency. Cortisol level is 9 making a possibility of adrenal insufficiency less likely or unlikely. Requested serum and urine osmolality. Pending. Previous serum osmolality noted to be low suspecting SIADH versus polydipsia. Patient recently had MRI of the brain in May which does not show any brain tumor or aneurysm that could be contributing to his hyponatremia. Sodium level is up to 133. Discontinue normal saline infusion, continue sodium chloride tablet. Changed to 3 times a day on discharge. Potential discharge today. BMP weekly by home health care. Results to be communicated to PCP. Atrial fibrillation, chronic. Patient is on Eliquis. Patient is on beta- dimitris for rate control. Continue current medication. I discussed Eliquis, anticoagulation risk and benefit with the . Risk of the bleed versus risk of stroke. opted to continue to take Eliquis at this time and will discuss further with primary care doctor. Patient has cognitive impairment, significant enough for him not to understand benefits/risk ratio. is making decision on his behalf Diabetes on glyburide. Not sure if glyburide is the best option for him due to increased risk of hypoglycemia. Previous A1c was less than 5.8. Hold glyburide at this time. Start him on Januvia 100 mg daily. His blood sugar has been stable over the last 3 days. Hypertension. Currently borderline hypotensive Hold lisinopril. Continue atenolol due to A-fib to prevent tachycardia Blood pressure has been stable over the last 48 hours. Cachexia, frailty, muscle wasting, mild to moderate protein calorie malnutrition Start the patient on oral protein supplementation. The patient may need to undergo weight loss and cachexia workup including cancer screening and/or malabsorption. To be arranged by PCP. Reported history of BPH. Patient is on Flomax and Proscar. Requested bladder scan to screen for retention Patient did not have retention Hearing loss, significant cognitive loss, moderate functional loss I believe that patient has vascular dementia or some other type of neurodegenerative disorder. Recent MRI showed microvascular disease. Continue secondary stroke prevention. Apply hearing aid. PT OT eval and treatment. Follow-up on PT recommendation. Fall precautions Patient and his do not want to go anywhere else but home. Home health care will be arranged for him. Chronic medical conditions not listed above, incidental findings seen on labs and imaging. These would need to be addressed. Could be addressed when time and condition are appropriate. Could be addressed in the outpatient setting by PCP collaboration with other needed outpatient providers. Patient has multiple complex medical issues as listed above and others that are not listed. All appear to be stable. I do not have any clear or strong clinical justification to extend inpatient hospitalization. Patient however will require close and frequent monitoring as well as additional work-up, investigation and therapeutic intervention that could take place from this point on post discharge. That is to prevent relapse, decompensation, rehospitalization and other medical implications. I instructed patient to ask her primary care doctor to obtain [facility] record entirely to address abnormalities seen on labs and imaging that I have and have not addressed during this hospitalization, follow-up on pending blood work, imaging and pathology is if available and to follow-up on needed medical care in the outpatient setting. Time Spent with Patient Time attestation: Total time spent providing and/or coordinating discharge services: Exam Constitutional Vital Signs, click to edit/add: Last Vital Signs Temp 97.7 F 08/02/25 08:00 Pulse 72 08/02/25 08:00 Resp 18 08/02/25 08:00 BP 104/46 L 08/02/25 08:00 Pulse Ox 97 08/02/25 08:00 O2 Del Method Room Air 08/02/25 08:00 DS: Data Data Completed and Pending Labs on day of discharge: Labs from last 24 hours 08/02/25 08/01/25 08/01/25 05:35 21:04 18:20 Sodium 133 L 134 L Potassium 4.0 4.0 Chloride 100 100 Carbon Dioxide 24.4 25.2 Anion Gap 12.6 12.8 BUN 8.0 8.0 Creatinine 0.72 0.76 Est GFR ( Amer) >60 >60 Est GFR (Non-Af Amer) >60 >60 BUN/Creatinine Ratio 11.1 10.5 Glucose 107 H 176 H Calcium 8.9 8.6 Cortisol AM Sample POC Glucose 137 H 08/01/25 08/01/25 07/31/25 16:48 11:40 06:28 Sodium Potassium Chloride Carbon Dioxide Anion Gap BUN Creatinine Est GFR ( Amer) Est GFR (Non-Af Amer) BUN/Creatinine Ratio Glucose Calcium Cortisol AM Sample 9.3 POC Glucose 116 H 128 H Discharge Plan Discharge Disposition: Home Health Service Discharge Medications: New Januvia 100 mg tablet 100 mg PO DAILY Qty: 30 1RF Continued levothyroxine 25 mcg tablet 25 mcg PO QAM pravastatin 40 mg tablet 40 mg PO DAILY tamsulosin 0.4 mg capsule 0.4 mg PO DAILY atenolol 25 mg Tablet 12.5 mg PO DAILY aspirin 81 mg Tablet,Delayed Release (Dr/Ec) 81 mg PO QD 5 Days Qty: 5 0RF omeprazole 40 mg capsule,delayed release(DR/EC) 40 mg PO DAILY finasteride 5 mg tablet 5 mg PO DAILY gabapentin 300 mg capsule 300 mg PO DAILY Eliquis 5 mg tablet 5 mg PO Q12H Changed meloxicam 7.5 mg tablet 7.5 mg PO DAILY PRN (Reason: Pain) Qty: 0 0RF sodium chloride 1,000 mg tablet,soluble 1,000 mg PO TID Qty: 0 0RF Discontinued glimepiride 2 mg tablet 2 mg PO DAILY lisinopril 10 mg tablet 10 mg PO DAILY Print Language: [place] Citizen Patient Instructions: Sodium Chloride (By mouth), Hyponatremia (DC), Altered Mental Status (GEN) Activity Restrictions/Additional Instructions: I may not have addressed or treated all of your medical illnesses or the abnormal blood work or imaging studies during this hospitalization. Please ask your primary care provider to obtain [facility] records entirely to follow up on all of the abnormal physical, laboratory, and imaging findings that I have not addressed. Please return back to the emergency room or seek medical attention if your symptoms worsen or return. Avoid excessive fluid intake including water, pop, Pepcid, coffee, tea unless you are thirsty Home health care nurse to draw BMP weekly for 3 weeks and recommend he get result to PCP to monitor his sodium level. Stop taking sodium chloride ( Salt ) tablet if sodium level goes above 142 Discharging you from [facility] does not mean that your medical care ends here and now. You may still need additional monitoring, work up, investigation, and treatment plan to be handled from this point on by out patient providers including your primary care provider and specialists. For any medication question, please contact your retail pharmacist or your primary care provider. Thank you. Photo Printer/Insulator Helper Instructions: [facility] for PT/OT and nursing. They should contact you within 48 hours of discharge to schedule 1st visit. If you do not hear from them, please call [facility] at [phone]. Forms: Portal Instructions Follow Up Appointments: 08/08 @ 10am with Britt Mcneill NP [phone]
--- NOTE | 2025-08-02 12:06 | SWNOTE1 ---
JACQUELYN faxed CRF, dc summary, PT/OT from today, and dc med rec to [facility].
--- NOTE | 2025-08-05 16:05 | CM.DCFOLLOWU ---
Patient is in Emergency room 08/05/25
[2025-08-07 07:10] LABS: Osmolality, Urine 175 mOsmol/kg (.)
== END 2025-08-02 13:33 | disposition home health service (06) | DRG 641 ==
LOC: ER 09:38 → MS 10:03
PROVIDERS: Admitting Provider Internal Medicine; Emergency Provider Emergency Medicine; PCP Nurse Practitioner Family; Visit Provider Internal Medicine
DX: E87.1 Hypo-osmolality and hyponatremia (principal); R64 Cachexia; I48.20 Chronic atrial fibrillation, unspecified; G93.40 Encephalopathy, unspecified; E44.0 Moderate protein-calorie malnutrition; R53.1 Weakness; H91.90 Unspecified hearing loss, unspecified ear; Z79.01 Long term (current) use of anticoagulants; E78.00 Pure hypercholesterolemia, unspecified; Z79.84 Long term (current) use of oral hypoglycemic drugs; Z79.899 Other long term (current) drug therapy; Z79.82 Long term (current) use of aspirin; R54 Age-related physical debility; E86.0 Dehydration; E11.65 Type 2 diabetes mellitus with hyperglycemia; E03.9 Hypothyroidism, unspecified; Z79.890 Hormone replacement therapy; I10 Essential (primary) hypertension; N40.0 Benign prostatic hyperplasia without lower urinary tract symptoms; Z68.24 Body mass index [BMI] 24.0-24.9, adult; R41.0 Disorientation, unspecified; Z66 Do not resuscitate
CPT/HCPCS: 36415; 70450; 80048; 80053; 81003; 82533; 82948; 83605; 83735; 83930; 83935; 84443; 84484; 85025; 85610; 93005; 97162; 97165; 97530; 97535; 99285; J1630

== ENCOUNTER 2025-08-05 13:53 | Inpatient (IN) | payer MEDICARE, SELFPAY ==
[2025-08-05] VITALS (42 sets, daily range): BP systolic 125–170; BP diastolic 60–113; PULSE 65–127; TEMP 36.6–37; O2SAT 83–98; BMI 26.5; BMI 22.7
--- NOTE | 2025-08-05 13:57 | ECG_ITS ---
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 Measurements Intervals Tamiment Rate: 99 P: -20881 GA: -89917 QRS: 60 QRSD: 110 T: 56 QT: 324 QTc: 380 Interpretive Statements 1210 Atrial fibrillation [address] depression, probably digitalis effect 7300 Indeterminate axis 0102 ARTIFACT PRESENT 9140 abnormal rhythm ECG Compared to ECG 07/30/2025 07:09:20 ST (T wave) deviation now present Indeterminate axis now present Electronically Signed On 08-05-2025 17:17:54 EDT by SHIVA DÍAZ M.D.
--- NOTE | 2025-08-05 13:57 | XR_ITS ---
[address] [address] Patient Name: INDIANA ZABALA MRN: [id number] date: 1940 Sex: M Assigned Patient Location: ED.MAIN Current Patient Location: ED.MAIN Accession/Order Number: [id number] Exam Date: 08/05/2025 15:11 Report Date: 08/05/2025 15:32 At the request of: JESSI YAO MD Procedure: XR chest 1V Single view chest INDICATION: Altered mental status COMPARISON: CT performed 07/19/2025 FINDINGS: Mildly enlarged cardiomediastinal silhouette. Lungs are clear. No effusion or pneumothorax. Postsurgical changes ACDF lower cervical spine. XR/XR chest 1V IMPRESSION: Negative acute pleural-parenchymal disease. Impression dictated by: Rajeev Anne M.D. 08/05/2025 3:32 PM Dictation Location: [place] [address] Electronically authenticated by: [id number] Y Date: 08/05/2025 15:32
--- NOTE | 2025-08-05 13:57 | CT_ITS ---
The [address] [address] Patient Name: INDIANA ZABALA MRN: [id number] date: 1940 Sex: M Assigned Patient Location: ED.MAIN Current Patient Location: ED.MAIN Accession/Order Number: [id number] Exam Date: 08/05/2025 15:06 Report Date: 08/05/2025 15:31 At the request of: JESSI YAO MD Procedure: CT head/brain wo con CT BRAIN WITHOUT CONTRAST: CLINICAL HISTORY: ams COMPARISON: 07/30/2025 TECHNIQUE: Contiguous axial unenhanced images were obtained through the brain. This CT exam was performed using one or more following dose reduction techniques: Automated exposure control, adjustment of the mA and/or kV according to patient size, or use of iterative reconstruction technique. FINDINGS: There is no evidence of midline shift, intra or extra-axial fluid collection, hemorrhage or CT evidence of acute large vascular distribution stroke. Senescent calcification of both basal ganglia regions. Mild chronic small ischemic disease. Remote right caudate head lacunar stroke. Intracranial vascular calcification. Visualized intraorbital contents appear unremarkable. Visualized paranasal sinuses are clear. The surrounding soft tissues are normal. CT/CT head/brain wo con IMPRESSION: NO ACUTE INTRACRANIAL ABNORMALITY. MILD CHRONIC SMALL ISCHEMIC CHANGES. Impression dictated by: Rajeev Anne M.D. 08/05/2025 3:31 PM Dictation Location: [place] [address] Electronically authenticated by: [id number] Y Date: 08/05/2025 15:31
--- OUTSIDE RECORDS SUMMARY | 2025-08-05 14:08 | XMS_ITS | CCD ---
Author Organization [facility] [place] [facility] Care Team Providers Care Financial Administrative Assistant Name Role Phone Jada Rene Unavailable Unavailable Primary Care Provider UnavailEdwin Fletcher Primary Care Physician Irene COHN, Nathaniel Longo Attending Unavailable Edwin Garcia MD Primary Care Provider dEwin Garcia Attending Unavailable Edwin Garcia Admitting Unavailable [...] Unavailable Kirnus, Kashif D Attending Unavailable Jules CLOTH PRINTING BACK TENDER - BORING MACHINE OPERATOR PRODUCTIONJaden Primary Care Provider [phone] Edwin Garcia Referring Unavailable LALITHA Dubose Admitting [...] Unavailable MD Edwin Garcia Attending Unavailable Reyes CLOTH PRINTING BACK TENDER-Yanique QUAN Primary Care Provider YANIQUE MCNEILL A Attending Unavailable Jules Jaden L Attending Unavailable REYES, YANIQUE A Attending Unavailable REYES, YANIQUE A Attending Unavailable REYES, YANIQUE A Admitting Unavailable REYES, YANIQUE A Attending Unavailable REYES, YANIQUE A Attending Unavailable REYES, YANIQUE A Admitting Unavailable REYES, YANIQUE A Admitting Unavailable REYES, YANIQUE A Admitting Unavailable Reyes PROJECT FACILITATOR-BC, Yanique A Primary Care Provider Billy COHN, Thalia Admit Provider Billy COHN, Thalia Other Provider Dev Archuleta DO Other Provider Darien Gordillo MD Other Provider Win Santillan DO Other Provider Leila COHN, Axel Attending Provider Axel Dee MD Other Provider Edwin Garcia Admitting Unavailable Edwin Garcia Attending Unavailable REYES, YANIQUE A Attending Unavailable REYES, YANIQUE A Attending Unavailable Edwin Garcia Attending Unavailable REYES, YANIQUE A Attending Unavailable REYES, YANIQUE A Admitting Unavailable Billy, Mohamad Attending Unavailable Reyes, Yanique A Primary Care Unavailable Axel Dee Consulting Unavailable Billy, Mohamad Admitting Unavailable Blossom Oleary Consulting Unavailable Zechariah Crews Consulting Unavailable Varsha Dela Cruz Consulting Unavailable Chau Márquez Consulting Unavailable Blossom Bee Consulting Unavailable Rajan Aggarwal Consulting Unavailable Nkyudith-AmSilvestre romeo Consulting Unavail able Preethi Mena Consulting Unavailable Melissa Corbett Consulting Unavailable Dve Archuleta Consulting Unavailable Darien Gordillo Consulting Unavailable Win Santillan Consulting Unavailable REYES, YANIQUE A Admitting Unavailable Zechariah CREWS Attending Unavailable REYES, YANIQUE A Attending Unavailable Allergies Allergy Classification Reported Allergen(s) Allergy Type Date of Onset Reaction(s) Facility (12 sources) No Known Medication Allergies; Translations: [No Known Medication Allergies] Propensity to adverse reactions (disorder) [facility] Repository Medications Current Medications Medication [...] every four hours as needed for pain [place] 325 mg-5 mg oral tablet See Instructions, [...] # 90 tab(s), Refills(s) 1, Pharmacy: [facility], 178, cm, 09/10/24 13:01:00 EDT, Height/Length Dosing, 80.1, kg, 09/10/24 13:01:00 EDT, Weight Dosing Start Date: 10/22/24 Status: Ordered Quantity: 90.0 Unit: tab(s) Repeat number: 2 Start: 04-20-2024 atenolol 25 mg Tab See Instructions, take 1/2 tab daily, # 30 tab(s), Refills(s) 5, Pharmacy: [facility]/pharmacy #[id number], 180, cm, 04/20/24 13:27:00 EDT, Height/Length Dosing, [...] Corticosteroid Start: 08-31-20 fluticasone Nasal 0.05 mg/inh [place] See Instructions, 48 mL, Refill(s) 1, USE 1 SPRAY IN EACH NOSTRIL TWICE A DAY, [facility] STORE [id number], 178, cm, 08/28/24 14:50:00 EDT, Height/Length Dosing, 82.2, kg, 08/28/24 14:50:00 EDT, Weight Dosing Start Date: 08/31/24 Status: Ordered Start: 07-03-2024 take 1 spray(s) nasa l route twice daily Flonase 0.05 mg/inh [place] 1 spray(s), Nasal, BID, 16 gram, Refill(s) 0, each nostril, [facility]/pharmacy #[id number], 178, cm, 07/03/24 10:05:00 EDT, [...] STOMACH, # 90 tab(s), Refills(s) 1, Pharmacy: [id number], 178.6, cm, 02/05/25 13:36:00 EDT, Height/Length Dosing, 82.2, kg, 02/05/25 13:36:00 EDT, Weight Dosing Start Date: 03/07/25 Status: Ordered Quantity: 90.0 Unit: tab(s) Repeat number: 1 Start: 08-20-2024 Synthroid 25 m cg(0.025 mg) Tab See Instructions, TAKE 1 TABLET DAILY ON AN EMPTY STOMACH, # 3 tab(s), Refills(s) 0, Pharmacy: [facility]/pharmacy #[id number], 178, cm, 08/07/24 10:59:00 EDT, Height/Length Dosing, 78.2, kg, 08/07/24 10:59:00 EDT, Weight Dosing Start Date: 08/20/24 Status: Ordered Quantity: 3.0 Unit: tab(s) Repeat number: 1 Start: 02-13-2024 take 1 tablet by alyssa once daily levothyroxine 25 mcg (0.025 mg) Tab 25 mcg = 1 tab(s), Oral, Daily, on an empty stomach, # 90 tab(s), Refills(s) 1, Pharmacy: [facility], 178.2, cm, 02/02/24 10:29:00 EDT, [...] Start: 04-25-2025 take 1 tablet by alyssa th once daily meloxicam 7.5 mg Tab 7.5 mg = 1 tab(s), Oral, Daily, TAKE 1 TABLET DAILY, # 30 tab(s), Refills(s) 2, Pharmacy: [facility], 178.6, cm, 02/05/25 13:36:00 EDT, Height/Length Dosing, 82.2, kg, 02/05/25 13:36:00 EDT, Weight Dosing Start Date: 04/25/25 Status: Ordered Quantity: 30.0 Unit: tab(s) Repeat number: 3 Start: 01-07-2025 take 1 tablet by alyssa th once daily meloxicam 7.5 mg Tab 7.5 mg = 1 tab(s), Oral, Daily, TAKE 1 TABLET DAILY, # 30 tab(s), Refills(s) 2, Pharmacy: [facility], 178.6, cm, 12/24/24 13:13:00 EST, Height/Length Dosing, 79, kg, 12/24/24 13:13:00 EST, Weight Dosing Start Date: 01/07/25 Status: Ordered Quantity: 30.0 Unit: tab(s) Repeat number: 3 Start: 12-06-2024 take 1 tablet by alyssa th once daily meloxicam 7.5 mg Tab 7.5 mg = 1 tab(s), Oral, Daily, TAKE 1 TABLET DAILY, # 30 tab(s), Refills(s) 2, Pharmacy: [facility], 178.6, cm, 11/01/24 9:21:00 EST, Height/Length [...] # 5 tab(s), Refills(s) 0, Pharmacy: [facility], 178, cm, 07/03/24 10:05:00 EDT, [...] (2 times per day), First dose on [place] 06/02/25 at 2100, Until Discontinued, For Line [...] HOURS, First dose (after last modification) on [place] 06/02/25 at 1415, Until Discontinued Start: 06-02-2025 IntraVENous, a t 5-250 mL/hr, PRN, if patient receiving piggyback infusions and maintenance fluids are not ordered, Starting on [place] 06/02/25 at 1205, For piggyback infusion, administer [...] needed 10 mL, IntraVENous, PRN, Starting on [place] 06/02/25 at 1205, Until Discontinued, Line Care, After every IV line use Start: 05-14-2025 End: 06-05-2025 take 1000 mg by mouth three times daily 1,000 mg, oral, 3 times daily around food, First dose (after last modification) on [facility] 06/20/25 at 1700 Start: 05-14-2025 Sodium Chlorid e 1 g oral tablet See Instructions, Take 1g BID daily, # 180 tab(s), Refills(s) 0, Pharmacy: [facility]/pharmacy #[id number], 178.6, cm, 05/09/25 8:18:00 EDT, Height/Length Dosing, 80.6, kg, 05/09/25 8:18:00 EDT, Weight Dosing Start Date: 05/14/25 Status: Ordered Quantity: 180.0 Unit: tab(s) Repeat number: 1 Start: 02-06-2025 Sodium Chlorid e 1 g oral tablet See Instructions, Take 1g BID daily, # 60 tab(s), Refills(s) 3, [id number] 178.6, cm, 02/05/25 13:36:00 EDT, Height/Length Dosing, 82.2, kg, 02/05/25 13:36:00 EDT, Weight Dosing Start Date: 02/06/25 Status: Ordered Quantity: 60.0 Unit: tab(s) Repeat number: 4 Start: 01-24-2025 take 1 tablet by alyssa th twice daily Sodium Chloride 1 g oral tablet See Instructions, 1 gram orally BID, # 180 tab(s), Refills(s) 0, Pharmacy: [facility], 178.6, cm, 01/24/25 13:29:00 EDT, Height/Length Dosing, 82.7, kg, 01/24/25 13:29:00 EDT, Weight Dosing Start Date: 01/24/25 Status: Ordered Start: 01-07-2025 take 1 tablet by mouth once da rasta Sodium Chloride 1 g oral tablet See Instructions, 1 gram orally daily, # 90 tab(s), Refills(s) 0, [id number] 178.6, cm, 12/24/24 13:13:00 EST, Height/Length Dosing, 79, kg, 12/24/24 13:13:00 EST, Weight Dosing Start Date: 01/07/25 Status: Ordered Start: 12-26-2024 take 1 tablet by mouth once da rasta Sodium Chloride 1 g oral tablet See Instructions, 1 gram orally daily, # 90 tab(s), Refills(s) 0, Pharmacy: [facility], 178.6, cm, 12/24/24 13:13:00 EST, Height/Length Dosing, 79, kg, 12/24/24 13:13:00 EST, Weight Dosing Start Date: 12/26/24 Status: Ordered Start: 12-17-2024 take 1 tablet by mouth once da rasta Sodium Chloride 1 g oral tablet See Instructions, 1 gram orally daily, # 90 tab(s), Refills(s) 0, Pharmacy: [facility], 178.6, cm, 12/17/24 15:05:00 EST, Height/Length Dosing, 78.5, kg, 12/17/24 15:05:00 EST, Weight Dosing Start Date: 12/17/24 Status: Ordered Start: 06-27-2024 take 1 tablet by mouth once da rasta Sodium Chloride 1 g oral tablet See Instructions, 1 gram orally daily, # 90 tab(s), Refills(s) 0, [id number] 178, cm, 06/11/24 12:53:00 [...] tab(s), Refills(s) 2, [id number] 180.5, cm, 03/20/24 15:05:00 [...] # 90 tab(s), Refills(s) 2, Pharmacy: [facility], 178.2, cm, 12/01/23 13:40:00 EST, Height/Length Dosing, 85.5, kg, 12/01/23 13:40:00 EST, Weight Dosing Start Date: 12/23/23 Status: Ordered Sodium Chloride 1000 mg oral tablet, soluble (1 source) Start: 11-13-2024 take 1 tablet by mouth once daily Sodium Chloride 1000 mg oral tablet, soluble See Instructions, 30 tab(s), Refill(s) 0, Take one tablet daily, [facility]/pharmacy #[id number], 178.6, cm, 11/01/24 9:21:00 EST, [...] dysfunction, # 7 tab(s), Refills(s) 0, Pharmacy: [facility]/pharmacy #[id number], 178.6, cm, 02/05/25 13:36:00 [...] (3 sources) Antihypoglycemic Agent Start: 5 End: inject 1 mg by intramuscular injection once [...] for injection by adding 1 mL of jet blade polisher-supplied sterile diluent or sterile water for injection [...] by mouth daily Suspended polyethylene glycol 3350 [id number] mg powder for oral solution (1 source) [...] Comment on above: Take 1 capsule by [facility] daily at bedtime. 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 Unclassified (1 source) You have been [...] Reference Range Facility Ambulatory Visit Summaryon 0 9-11-2025 Ambulatory Visit Summary Ambulatory Visit Summary DARIEL [...] AM EDT With: YANIQUE MCNEILL CNP Where: [address] [id number] 8:00 AM EDT With: Where: [facility] [place] [address] [place] [address]- Medications What How Much When Why Instructions [...] disease BMI 23.0-23.9, adult Nonsmoker Natural Lemon [place] flavor Unchanged pravastatin (pravastatin 40 mg Tab) [...] Erectile dysfuncti (more content not included)... Normal [facility] Office/Clini c Noteon [...] health services, although they were ordered by [facility] to assist with gastrointestinal and genitourinary [...] 7.5 mg (more content not included)... Normal [facility] Comment on above: Result Comment: Elec tronically Signed By: YANIQUE MCNEILL CNP\.claudio\Date and Time Signed: 07/25/25 11:58 EDT Glucose Poct Glucometerson 0 07-23-2025 Glucose [Mass/Vol] 137 mg/dL Normal [facility] Comment on above: Result Comment: [facility] Glucose Reference Range is dependent on time and content of last meal. Glucose of more than 200 mg/dL in a nonstressed, ambulatory subject supports the diagnosis of Diabetes Mellitus. PERFORMED BY: [address] [place] [address] PATHOLOGIST CARDIOPULMONARY SUPERVISOR MARIAM WANG M.D. Performed By: #### C DT #### [facility] [address] CBC W Auto Differential pane l (Bld)on 07-22-2025 Basophils (Bld) [#/Vol] 0 10*3/uL 0.0 - 0.2 10*3/uL [facility] Basophils/100 WBC Manual cnt (Syn fld) 0.4 % . [facility] care Eosinophils (Bld) [#/Vol] 0.1 10*3/uL 0.0 - 0.45 10*3/uL [facility] Eosinophils/100 WBC Manual cnt (Syn fld) 2.2 % . [facility] Erythrocyte distribution width (RBC) [Ratio] 13.6 % 12.0 - 14.8 % [facility] Hematocrit (Bld) [Volume fraction] 32.4 % Low 38.8 - 50.0 % [facility] Hemoglobin (Bld) [Mass/Vol] 11.2 g/dL Low 13.0 - 17.0 g/dL [facility] Interpretation and review of laboratory results Abnormal [facility] Lymphocytes (Bld) [#/Vol] 1.2 10*3/uL 1.00 - 4.8 10*3/uL [facility] Lymphocytes/100 WBC Manual cnt (Syn fld) 16.8 % . [facility] MCH (RBC) [Entitic mass] 31.5 pg 27.5 - 35.[address] [facility] MCHC (RBC) [Mass/Vol] 34.4 g/dL 32.5 - 35.6 g/dL [facility] MCV (RBC) [Entitic vol] 91.5 fL 83.5 - [address] [facility] Monocytes (Bld) [#/Vol] 0.6 10*3/uL 0.0 - 0.8 10*3/uL [facility] Monocytes+Macrophages /100 WBC Manual cnt (Syn fld) 8.3 % . [facility] Neutrophils (Bld) [#/Vol] 5 10*3/uL 1.8 - 7.7 10*3/uL [facility] Neutrophils/100 WBC Manual cnt (Syn fld) 72.3 % . [facility] NRBC 0.1 /100{WBC} 0 - 0.5 /100{WBC} [facility] Platelet mean volume (Bld) [Entitic vol] 8.8 fL 6.6 - 10.[address] [facility] Platelets (Bld) [#/Vol] 157 10*3/uL 150 - 450 10*3/uL [facility] RBC LM.HPF (Urine sed) [#/Area] 3.54 10*6/uL Low 3.90 - 5.60 10*6/uL [facility] WBC (Bld) [#/Vol] 6.9 10*3/uL 4.1 - 10.5 10*3/uL [facility] WBC LM.HPF (Urine sed) [#/Area] 6.9 [CFU]/mL 4.1 - 10.5 [CFU]/mL [facility] Complete Blood Count Auto Di ffon 07-22-2025 Basophils (Bld) [#/Vol] 0.0 10*3/uL Normal 0.0-0.2 [facility] Comment on above: Result Comment: PERF ORMED BY: [place] [address] PATHOLOGIST CARDIOPULMONARY SUPERVISOR MARIAM WANG M.D. Performed By: #### C DT #### [address] Basophils/100 WBC (Bld) 0.4 % Normal . [facility] Comment on above: Performed By: #### C DT #### [place] [address] [place] Eosinophils (Bld) [#/Vol] 0.1 10*3/uL Normal 0.0-0.45 [facility] Comment on above: Performed By: #### C DT #### [place] [address] [place] Eosinophils/100 WBC (Bld) 2.2 % Normal . [facility] Comment on above: Performed By: #### C DT #### [address] Erythrocyte distribution width (RBC) [Ratio] 13.6 % Normal 12.0-14.8 [facility] Comment on above: Performed By: #### C DT #### [address] Hematocrit (Bld) [Volume fraction] 32.4 % Low 38.8-50.0 [facility] Comment on above: Performed By: #### C DT #### [address] Hemoglobin (Bld) [Mass/Vol] 11.2 g/dL Low 13.0-17.0 [facility] Comment on above: Performed By: #### C DT #### [address] Lymphocytes (Bld) [#/Vol] 1.2 10*3/uL Normal 1.00-4.8 [facility] Comment on above: Performed By: #### C DT #### [address] Lymphocytes/100 WBC (Bld) 16.8 % Normal . [facility] Comment on above: Performed By: #### C DT #### [address] MCH (RBC) [Entitic mass] 31.5 pg Normal 27.5-35.2 [facility] Comment on above: Performed By: #### C DT #### [address] MCV (RBC) [Entitic vol] 91.5 fL Normal 83.5-101 [facility] Comment on above: Performed By: #### C DT #### [address] Mean Corpuscular HGB Conc 34.4 g/dL Normal 32.5-35.6 [facility] Comment on above: Performed By: #### C DT #### [address] Monocytes (Bld) [#/Vol] 0.6 10*3/uL Normal 0.0-0.8 [facility] Comment on above: Performed By: #### C DT #### [place] [address] Monocytes/100 WBC (Bld) 8.3 % Normal . [facility] Comment on above: Performed By: #### C DT #### [address] Neutrophils (Bld) [#/Vol] 5.0 10*3/uL Normal 1.8-7.7 [facility] Comment on above: Performed By: #### C DT #### [address] Neutrophils/100 WBC (Bld) 72.3 % Normal . [facility] Comment on above: Performed By: #### C DT #### [address] NRBC% 0.1 /100{WBC} Normal 0-0.5 [facility] Comment on above: Performed By: #### C DT #### [address] Platelet mean volume (Bld) [Entitic vol] 8.8 fL Normal 6.6-10.1 [facility] Comment on above: Performed By: #### C DT #### [place] [address] [place] Platelets (Bld) [#/Vol] 157 10*3/uL Normal 150-450 [facility] Comment on above: Performed By: #### C DT #### [place] [address] [place] RBC (Bld) [#/Vol] 3.54 10*6/uL Low 3.90-5.60 [facility] Comment on above: Performed By: #### C DT #### [place] [address] [place] WBC (Bld) [#/Vol] 6.9 10*3/uL Normal 4.1-10.5 [facility] Comment on above: Performed By: #### C DT #### [address] White Blood Count 6.9 [CFU]/mL Normal 4.1-10.5 [facility] Comment on above: Performed By: #### C DT #### [facility] [address] [place] [id number] [facility] Comprehensive Metabolic Pane [facility] 07-22-2025 Albumin [Mass/Vol] 3.4 g/dL Low 3.5-5.7 [facility] Comment on above: Order Comment: per r n isaias. arr 0851. Performed By: #### G LULS #### Point of Care testing , Albumin/Globulin [Mass ratio] 1.5 {ratio} Normal [facility] Comment on above: Order Comment: per r n isaias. arr 0851. Performed By: #### G LULS #### Point of Care testing , ALP [Catalytic activity/Vol] 73 U/L Normal 34-104 [facility] Comment on above: Order Comment: per r n isaias. arr 0851. Performed By: #### G LULS #### Point of Care testing , ALT [Catalytic activity/Vol] 15 U/L Normal 7-52 [facility] Comment on above: Order Comment: per r n isaias. arr 0851. Performed By: #### G LULS #### Point of Care testing , Anion gap [Moles/Vol] 6.6 mmol/L Normal 6.0-15.0 [facility] Comment on above: Order Comment: per r n isaias. arr 0851. Performed By: #### G LULS #### Point of Care testing , AST [Catalytic activity/Vol] 22 U/L Normal 13-39 [facility] Comment on above: Order Comment: per r n isaias. arr 0851. Performed By: #### G LULS #### Point of Care testing , Bilirubin [Mass/Vol] 0.6 mg/dL Normal 0.3-1.0 [facility] Comment on above: Order Comment: per r n isaias. arr 0851. Performed By: #### G LULS #### Point of Care testing , Calcium [Mass/Vol] 8.5 mg/dL Low 8.6-10.3 [facility] Comment on above: Order Comment: per r romina esparza. arr 0851. Performed By: #### G LULS #### Point of Care testing , Chloride [Moles/Vol] 101 mmol/L Normal 98-107 [facility] Comment on above: Order Comment: per r romnia thomasel. arr 0851. Performed By: #### G LULS #### Point of Care testing , CO2 [Moles/Vol] 27.1 mmol/L Normal 21.0-31.0 [facility] Comment on above: Order Comment: per r romina esparza. arr 0851. Performed By: #### G LULS #### Point of Care testing , Creatinine [Mass/Vol] 0.83 mg/dL Normal 0.70-1.30 [facility] Comment on above: Order Comment: per r romina esparza. arr 0851. Performed By: #### G LULS #### Point of Care testing , Creatinine Clr Calc Pharmacy 71.82 Normal [facility] Comment on above: Order Comment: per r romina esparza. arr 0851. Result Comment: PERF ORMED BY: [facility] [address] [place] [address] PATHOLOGIST CARDIOPULMONARY SUPERVISOR MARIAM WANG M.D. Performed By: #### G LULS #### Point of Care testing , GFR/1.73 sq M.predicted MDRD (S/P/Bld) [Vol rate/Area] mL/min/{1.73_m2} Normal [facility] Comment on above: Order Comment: per r romina esparza. arr 0851. Performed By: #### G LULS #### Point of Care testing , Globulin (S) [Mass/Vol] 2.3 g/dL Normal [facility] Comment on above: Order Comment: per r romina esparza. arr 0851. Performed By: #### G LULS #### Point of Care testing , Glucose [Mass/Vol] 116 mg/dL High 70-100 [facility] Comment on above: Order Comment: per r romina esparza. arr 0851. Result Comment: [facility] Glucose Reference Range is dependent on time and content of last meal. Glucose of more than 200 mg/dL in a nonstressed, ambulatory subject supports the diagnosis of Diabetes Mellitus. ADA recommended reference range Performed By: #### G LULS #### Point of Care testing , Potassium [Moles/Vol] 3.7 mmol/L Normal 3.5-5.1 [facility] Comment on above: Order Comment: per joyce esparza. arr 0851. Performed By: #### G LULS #### Point of Care testing , Protein [Mass/Vol] 5.7 g/dL Low 6.4-8.9 [facility] Comment on above: Order Comment: per joyce esparza. arr 0851. Performed By: #### G LULS #### Point of Care testing , Sodium [Moles/Vol] 131 mmol/L Low 136-145 [facility] Comment on above: Order Comment: per joyce esparza. arr 0851. Performed By: #### G LULS #### Point of Care testing , Urea nitrogen [Mass/Vol] 12 mg/dL Normal 7-25 [facility] Comment on above: Order Comment: per joyce esparza. arr 0851. Performed By: #### G LULS #### Point of Care testing , Glucose Poct Glucometerson 0 07-22-2025 Glucose [Mass/Vol] 168 mg/dL Normal [facility] Comment on above: Result Comment: [facility] Glucose Reference Range is dependent on time and content of last meal. Glucose of more than 200 mg/dL in a nonstressed, ambulatory subject supports the diagnosis of Diabetes Mellitus. PERFORMED BY: [facility] [address] [facility] [place] [address] PATHOLOGIST CARDIOPULMONARY SUPERVISOR MARIAM WANG M.D. Performed By: #### G LULS #### Point of Care testing , Glucose [Mass/Vol] 70 mg/dL Normal [facility] Comment on above: Result Comment: [facility] Glucose Reference Range is dependent on time and content of last meal. Glucose of more than 200 mg/dL in a nonstressed, ambulatory subject supports the diagnosis of Diabetes Mellitus. PERFORMED BY: [facility] [address] [place] [id number] PATHOLOGIST CARDIOPULMONARY SUPERVISOR MARIAM WANG M.D. Performed By: #### G LULS #### Point of Care testing , Glucose [Mass/Vol] 94 mg/dL Normal [facility] Comment on above: Result Comment: [place] Glucose Reference Range is dependent on time and content of last meal. Glucose of more than 200 mg/dL in a nonstressed, ambulatory subject supports the diagnosis of Diabetes Mellitus. PERFORMED BY: [place] [phone] PATHOLOGIST CARDIOPULMONARY SUPERVISOR MARIAM WANG M.D. Performed By: #### C DT #### [address] Glucose [Mass/Vol] 86 mg/dL Normal [facility] Comment on above: Result Comment: [place] Glucose Reference Range is dependent on time and content of last meal. Glucose of more than 200 mg/dL in a nonstressed, ambulatory subject supports the diagnosis of Diabetes Mellitus. PERFORMED BY: [place] [address] PATHOLOGIST CARDIOPULMONARY SUPERVISOR MARIAM WANG M.D. Performed By: #### C DT #### [address] Glucose [Mass/Vol] 63 mg/dL Normal [facility] Comment on above: Result Comment: [place] Glucose Reference Range is dependent on time and content of last meal. Glucose of more than 200 mg/dL in a nonstressed, ambulatory subject supports the diagnosis of Diabetes Mellitus. PERFORMED BY: [place] [address] PATHOLOGIST CARDIOPULMONARY SUPERVISOR MARIAM WANG M.D. Performed By: #### G LULS #### Point of Care testing , Vancomycin,Troughon -08-20 25 Vancomycin,Trough 12.0 Normal 10.0-20.0 [facility] Comment on above: Order Comment: > or = to 3 loose/watery stools in the last 24 HRS? Y Is patient on promotility agents or tube feeding? N Result Comment: Last dose: - PERFORMED BY: [place] [address] PATHOLOGIST CARDIOPULMONARY SUPERVISOR MARIAM WANG M.D. Performed By: #### C DT #### [place] [id number] [facility] C-Reactive Proteinon 025 C-Reactive Protein 12.1 mg/dL High 0.0-0.5 [facility] Comment on above: Result Comment: PERF ORMED BY: [place] [address] PATHOLOGIST CARDIOPULMONARY SUPERVISOR MARIAM WANG M.D. Performed By: #### C DT #### [address] CRP [Mass/Vol]on 07-21-2025 C-REACTIVE PROTEIN 12.1 mg/dL High 0.0 - 0.5 mg/dL [facility] Interpretation and review of laboratory results [facility] angio abdomen pelvison CT angio abdomen pelvis [facility] [place] [address] [place] [address] CT Scan Report Signed Patient: Dariel Zabala MR#: [id number] 9 : 1940 Acct:[id number] Age/Sex: 85 / M ADM Date: 07/19/25 Loc: Room: [address] [place] [address] Type: ADM IN Attending Dr: Thalia Cervantes [...] effusion. Impression dictated by: Dariel Gooden Jr., D.O. 07/21/2025 1:05 PM Dictation Location: [facility]18 Transcribed By: [facility] 07/21/25 1305 Dictated By: Dariel Gooden Jr, DO 07/21/25 1258 Signed By: 07/21/25 1305 Normal [facility] Complete Blood Count Auto Di ffon 07-21-2025 Basophils (Bld) [#/Vol] 0.0 10*3/uL Normal 0.0-0.2 [facility] Comment on above: Result Comment: PERF ORMED BY: [facility] [address] [place] [address] PATHOLOGIST CARDIOPULMONARY SUPERVISOR MARIAM WANG M.D. Performed By: #### C MP, MG, CBC #### [facility] [address] [place] [address] [place] Basophils/100 WBC (Bld) 0.4 % Normal . [facility] Comment on above: Performed By: #### C MP, MG, CBC #### [facility] [address] Eosinophils (Bld) [#/Vol] 0.1 10*3/uL Normal 0.0-0.45 [facility] Comment on above: Performed By: #### C MP, MG, CBC #### [address] Eosinophils/100 WBC (Bld) 1.8 % Normal . [facility] Comment on above: Performed By: #### C MP, MG, CBC #### [address] Erythrocyte distribution width (RBC) [Ratio] 13.9 % Normal 12.0-14.8 [facility] Comment on above: Performed By: #### C MP, MG, CBC #### [address] Hematocrit (Bld) [Volume fraction] 34.5 % Low 38.8-50.0 [facility] Comment on above: Performed By: #### C MP, MG, CBC #### [address] Hemoglobin (Bld) [Mass/Vol] 12.1 g/dL Low 13.0-17.0 [facility] Comment on above: Performed By: #### C MP, MG, CBC #### [place] [address] [place] Lymphocytes (Bld) [#/Vol] 0.9 10*3/uL Low 1.00-4.8 [facility] Comment on above: Performed By: #### C MP, MG, CBC #### [place] [address] [place] Lymphocytes/100 WBC (Bld) 13.4 % Normal . [facility] Comment on above: Performed By: #### C MP, MG, CBC #### [address] MCH (RBC) [Entitic mass] 31.9 pg Normal 27.5-35.2 [facility] Comment on above: Performed By: #### C MP, MG, CBC #### [address] MCV (RBC) [Entitic vol] 91.1 fL Normal 83.5-101 [facility] Comment on above: Performed By: #### C MP, MG, CBC #### [address] Mean Corpuscular HGB Conc 35.0 g/dL Normal 32.5-35.6 [facility] Comment on above: Performed By: #### C MP, MG, CBC #### [address] Monocytes (Bld) [#/Vol] 0.5 10*3/uL Normal 0.0-0.8 [facility] Comment on above: Performed By: #### C MP, MG, CBC #### [address] Monocytes/100 WBC (Bld) 7.1 % Normal . [facility] Comment on above: Performed By: #### C MP, MG, CBC #### [address] Neutrophils (Bld) [#/Vol] 5.0 10*3/uL Normal 1.8-7.7 [facility] Comment on above: Performed By: #### C MP, MG, CBC #### [address] Neutrophils/100 WBC (Bld) 77.3 % Normal . [facility] Comment on above: Performed By: #### C MP, MG, CBC #### [address] NRBC% 0.1 /100{WBC} Normal 0-0.5 [facility] Comment on above: Performed By: #### C MP, MG, CBC #### [address] Platelet mean volume (Bld) [Entitic vol] 8.9 fL Normal 6.6-10.1 [facility] Comment on above: Performed By: #### C MP, MG, CBC #### [address] Platelets (Bld) [#/Vol] 136 10*3/uL Low 150-450 [facility] Comment on above: Performed By: #### C MP, MG, CBC #### [address] RBC (Bld) [#/Vol] 3.79 10*6/uL Low 3.90-5.60 [facility] Comment on above: Performed By: #### C MP, MG, CBC #### [address] WBC (Bld) [#/Vol] 6.5 10*3/uL Normal 4.1-10.5 [facility] Comment on above: Performed By: #### C MP, MG, CBC #### [address] White Blood Count 6.5 [CFU]/mL Normal 4.1-10.5 [facility] Comment on above: Performed By: #### C MP, MG, CBC #### [address] Comprehensive Metabolic Pane patricio 07-21-2025 Albumin [Mass/Vol] 3.4 g/dL Low 3.5-5.7 [facility] Comment on above: Performed By: #### C MP, MG, CBC #### [address] Albumin/Globulin [Mass ratio] 1.4 {ratio} Normal [facility] Comment on above: Performed By: #### C MP, MG, CBC #### [address] ALP [Catalytic activity/Vol] 62 U/L Normal 34-104 [facility] Comment on above: Performed By: #### C MP, MG, CBC #### [facility] [address] ALT [Catalytic activity/Vol] 10 U/L Normal 7-52 [facility] Comment on above: Performed By: #### C MP, MG, CBC #### [facility] [address] Anion gap [Moles/Vol] 7.7 mmol/L Normal 6.0-15.0 [facility] Comment on above: Performed By: #### C MP, MG, CBC #### [facility] [address] AST [Catalytic activity/Vol] 14 U/L Normal 13-39 [facility] Comment on above: Performed By: #### C MP, MG, CBC #### [address] Bilirubin [Mass/Vol] 1.1 mg/dL High 0.3-1.0 [facility] Comment on above: Performed By: #### C MP, MG, CBC #### [facility] [address] [place] [address] [place] Calcium [Mass/Vol] 8.4 mg/dL Low 8.6-10.3 [facility] Comment on above: Performed By: #### C MP, MG, CBC #### [facility] [address] [place] [address] [place] Chloride [Moles/Vol] 102 mmol/L Normal 98-107 [facility] Comment on above: Performed By: #### C MP, MG, CBC #### [facility] [address] [place] [address] [place] CO2 [Moles/Vol] 26.2 mmol/L Normal 21.0-31.0 [facility] Comment on above: Performed By: #### C MP, MG, CBC #### [facility] [address] [place] [address] [place] Creatinine [Mass/Vol] 0.88 mg/dL Normal 0.70-1.30 [facility] Comment on above: Performed By: #### C MP, MG, CBC #### [address] Creatinine Clr Calc Pharmacy 67.74 Normal [facility] Comment on above: Performed By: #### C MP, MG, CBC #### [place] [address] [place] GFR/1.73 sq M.predicted MDRD (S/P/Bld) [Vol rate/Area] mL/min/{1.73_m2} Normal [facility] Comment on above: Performed By: #### C MP, MG, CBC #### [address] Globulin (S) [Mass/Vol] 2.5 g/dL Normal [facility] Comment on above: Performed By: #### C MP, MG, CBC #### [address] Glucose [Mass/Vol] 92 mg/dL Normal 70-100 [facility] Comment on above: Result Comment: [facility] Glucose Reference Range is dependent on time and content of last meal. Glucose of more than 200 mg/dL in a nonstressed, ambulatory subject supports the diagnosis of Diabetes Mellitus. ADA recommended reference range Performed By: #### C MP, MG, CBC #### [address] Potassium [Moles/Vol] 3.9 mmol/L Normal 3.5-5.1 [facility] Comment on above: Performed By: #### C MP, MG, CBC #### [address] Protein [Mass/Vol] 5.9 g/dL Low 6.4-8.9 [facility] Comment on above: Performed By: #### C MP, MG, CBC #### [address] Sodium [Moles/Vol] 132 mmol/L Low 136-145 [facility] Comment on above: Performed By: #### C MP, MG, CBC #### [address] Urea nitrogen [Mass/Vol] 12 mg/dL Normal 7-25 [facility] Comment on above: Performed By: #### C MP, MG, CBC #### [address] Glucose Poct Glucometerson 0 07-21-2025 Glucose [Mass/Vol] 70 mg/dL Normal [facility] Comment on above: Result Comment: [place] Glucose Reference Range is dependent on time and content of last meal. Glucose of more than 200 mg/dL in a nonstressed, ambulatory subject supports the diagnosis of Diabetes Mellitus. PERFORMED BY: [place] [address] PATHOLOGIST CARDIOPULMONARY SUPERVISOR MARIAM WANG M.D. Performed By: #### C DT #### [address] Glucose [Mass/Vol] 131 mg/dL Normal [facility] Comment on above: Result Comment: [place] Glucose Reference Range is dependent on time and content of last meal. Glucose of more than 200 mg/dL in a nonstressed, ambulatory subject supports the diagnosis of Diabetes Mellitus. PERFORMED BY: [place] [address] PATHOLOGIST CARDIOPULMONARY SUPERVISOR MARIAM WANG M.D. Performed By: #### V ANCP #### [address] Glucose [Mass/Vol] 152 mg/dL Normal [facility] Comment on above: Result Comment: [place] Glucose Reference Range is dependent on time and content of last meal. Glucose of more than 200 mg/dL in a nonstressed, ambulatory subject supports the diagnosis of Diabetes Mellitus. PERFORMED BY: [place] [address] PATHOLOGIST CARDIOPULMONARY SUPERVISOR MARIAM WANG M.D. Performed By: #### G LULS #### Point of Care testing , Glucose [Mass/Vol] 89 mg/dL Normal [facility] Comment on above: Result Comment: [facility] Glucose Reference Range is dependent on time and content of last meal. Glucose of more than 200 mg/dL in a nonstressed, ambulatory subject supports the diagnosis of Diabetes Mellitus. PERFORMED BY: [place] [address] PATHOLOGIST CARDIOPULMONARY SUPERVISOR MARIAM WANG M.D. Performed By: #### G LULS #### Point of Care testing , Magnesiumon 07-21-2025 Magnesium [Mass/Vol] 1.9 mg/dL Normal 1.9-2.7 [facility] Comment on above: Result Comment: PERF ORMED BY: [place] [address] PATHOLOGIST CARDIOPULMONARY SUPERVISOR MARIAM WANG M.D. Performed By: #### C MP, MG, CBC #### [facility] [address] [place] [address] Vancomycin,Peakon 07-21-2025 Vancomycin,Peak 23.0 Normal 20.0-40.0 [facility] Comment on above: Order Comment: > or = to 3 loose/watery stools in the last 24 HRS? Y Is patient on promotility agents or tube feeding? N Result Comment: Last dose: - PERFORMED BY: [place] [address] PATHOLOGIST CARDIOPULMONARY SUPERVISOR MARIAM WANG M.D. Performed By: #### C DT #### [facility] [address] [place] [address] Vancomycin,Peak 18.4 Low 20.0-40.0 [facility] Comment on above: Order Comment: Comme nt ?DRAW 1 HOUR AFTER INFUSION COMPLETES Date of last dose?: [id number] Time of last dose?: 0200 Result Comment: Last dose: - PERFORMED BY: [place] [address] PATHOLOGIST CARDIOPULMONARY SUPERVISOR MARIAM WANG M.D. Performed By: #### V ANCP #### [facility] [address] [place] [address] C-Reactive Proteinon 025 C-Reactive Protein 11.5 mg/dL High 0.0-0.5 [facility] Comment on above: Result Comment: PERF ORMED BY: [place] [address] PATHOLOGIST CARDIOPULMONARY SUPERVISOR MARIAM WANG M.D. Performed By: #### V ANCP #### [address] Clostridium Difficileon Clostridium Difficile Negative Normal Negative [facility] Comment on above: Order Comment: > or = to 3 loose/watery stools in the last 24 HRS? Y Is patient on promotility agents or tube feeding? N Result Comment: Test ing performed by RT-PCR PERFORMED BY: [place] [address] PATHOLOGIST CARDIOPULMONARY SUPERVISOR MARIAM WANG M.D. Performed By: #### C DT #### [address] Coagulation Profileon 2024 aPTT Coag (Bld) [Time] 34.7 s Normal 25.1-36.5 [facility] Comment on above: Result Comment: A he matocrit value greater than 55% may lead to inaccurate results in coagulation testing. Patients having hematocrit values >55% require a special collection tube for coagulation studies. Please contact the laboratory at [phone] for redraw instructions. PERFORMED BY: [place] [address] PATHOLOGIST CARDIOPULMONARY SUPERVISOR MARIAM WANG M.D. Performed By: #### V ANCP #### [address] INR Coag (PPP) [Relative time] 1.5 {INR} Normal [facility] Comment on above: Result Comment: [...] 4.5 Performed By: #### V ANCP #### [address] PT Coag (PPP) [Time] 16.6 s High 9.0-12.9 [facility] Comment on above: Result Comment: A he matocrit value greater than 55% may lead to inaccurate results in coagulation testing. Patients having hematocrit values >55% require a special collection tube for coagulation studies. Please contact the laboratory at [phone] for redraw instructions. Performed By: #### V ANCP #### [address] Complete Blood Count Auto Di ffon 07-20-2025 Basophils (Bld) [#/Vol] 0.0 10*3/uL Normal 0.0-0.2 [facility] Comment on above: Performed By: #### V ANCP #### [address] Basophils/100 WBC (Bld) 0.3 % Normal . [facility] Comment on above: Performed By: #### V ANCP #### [address] Eosinophils (Bld) [#/Vol] 0.0 10*3/uL Normal 0.0-0.45 [facility] Comment on above: Performed By: #### V ANCP #### [address] Eosinophils/100 WBC (Bld) 0.3 % Normal . [facility] Comment on above: Performed By: #### V ANCP #### [address] Erythrocyte distribution width (RBC) [Ratio] 13.9 % Normal 12.0-14.8 [facility] Comment on above: Performed By: #### V ANCP #### [address] Hematocrit (Bld) [Volume fraction] 36.3 % Low 38.8-50.0 [facility] Comment on above: Performed By: #### V ANCP #### [address] Hemoglobin (Bld) [Mass/Vol] 12.6 g/dL Low 13.0-17.0 [facility] Comment on above: Performed By: #### V ANCP #### [address] Lymphocytes (Bld) [#/Vol] 0.9 10*3/uL Low 1.00-4.8 [facility] Comment on above: Performed By: #### V ANCP #### [address] Lymphocytes/100 WBC (Bld) 9.4 % Normal . [facility] Comment on above: Performed By: #### V ANCP #### [address] MCH (RBC) [Entitic mass] 31.9 pg Normal 27.5-35.2 [facility] Comment on above: Performed By: #### V ANCP #### [address] MCV (RBC) [Entitic vol] 91.8 fL Normal 83.5-101 [facility] Comment on above: Performed By: #### V ANCP #### [address] Mean Corpuscular HGB Conc 34.8 g/dL Normal 32.5-35.6 [facility] Comment on above: Performed By: #### V ANCP #### [address] Monocytes (Bld) [#/Vol] 0.5 10*3/uL Normal 0.0-0.8 [facility] Comment on above: Performed By: #### V ANCP #### [address] Monocytes/100 WBC (Bld) 5.6 % Normal . [facility] Comment on above: Performed By: #### V ANCP #### [facility] [address] [place] [address] [place] Neutrophils (Bld) [#/Vol] 7.9 10*3/uL High 1.8-7.7 [facility] Comment on above: Performed By: #### V ANCP #### [facility] [address] [place] [address] [place] Neutrophils/100 WBC (Bld) 84.4 % Normal . [facility] Comment on above: Performed By: #### V ANCP #### [facility] [address] [place] [address] [place] NRBC% 0.1 /100{WBC} Normal 0-0.5 [facility] Comment on above: Performed By: #### V ANCP #### [facility] [address] [place] [address] [place] Platelet mean volume (Bld) [Entitic vol] 9.3 fL Normal 6.6-10.1 [facility] Comment on above: Performed By: #### V ANCP #### [facility] [address] [place] [id number] [place] Platelets (Bld) [#/Vol] 138 10*3/uL Low 150-450 [facility] Comment on above: Performed By: #### V ANCP #### [facility] [address] [place] [id number] [place] RBC (Bld) [#/Vol] 3.96 10*6/uL Normal 3.90-5.60 [facility] Comment on above: Performed By: #### V ANCP #### [facility] [address] [place] [id number] [place] WBC (Bld) [#/Vol] 9.3 10*3/uL Normal 4.1-10.5 [facility] Comment on above: Performed By: #### V ANCP #### [facility] [address] [place] [id number] [place] White Blood Count 9.3 [CFU]/mL Normal 4.1-10.5 [facility] Comment on above: Performed By: #### V ANCP #### [address] Comprehensive Metabolic Pane patricio 07-20-2025 Albumin [Mass/Vol] 3.6 g/dL Normal 3.5-5.7 [facility] Comment on above: Performed By: #### V ANCP #### [place] [id number] [facility] Albumin/Globulin [Mass ratio] 1.6 {ratio} Normal [facility] Comment on above: Performed By: #### V ANCP #### [address] ALP [Catalytic activity/Vol] 69 U/L Normal 34-104 [facility] Comment on above: Performed By: #### V ANCP #### [address] ALT [Catalytic activity/Vol] 12 U/L Normal 7-52 [facility] Comment on above: Performed By: #### V ANCP #### [address] Anion gap [Moles/Vol] 10.3 mmol/L Normal 6.0-15.0 [facility] Comment on above: Performed By: #### V ANCP #### [address] AST [Catalytic activity/Vol] 17 U/L Normal 13-39 [facility] Comment on above: Performed By: #### V ANCP #### [address] Bilirubin [Mass/Vol] 1.5 mg/dL High 0.3-1.0 [facility] Comment on above: Result Comment: Samp les from patients who have taken Naproxen have shown spurious elevation in Total Bilirubin levels. A metabolite of Naproxen, O-desmethylnaproxen, has been shown to interfere with the Jendrindiaik-Growilber method for measuring Total Bilirubin. Performed By: #### V ANCP #### [address] Calcium [Mass/Vol] 8.7 mg/dL Normal 8.6-10.3 [facility] Comment on above: Performed By: #### V ANCP #### [address] Chloride [Moles/Vol] 100 mmol/L Normal 98-107 [facility] Comment on above: Performed By: #### V ANCP #### [address] CO2 [Moles/Vol] 27.2 mmol/L Normal 21.0-31.0 [facility] Comment on above: Performed By: #### V ANCP #### [address] Creatinine [Mass/Vol] 0.88 mg/dL Normal 0.70-1.30 [facility] Comment on above: Performed By: #### V ANCP #### [address] Creatinine Clr Calc Pharmacy 67.65 Normal [facility] Comment on above: Performed By: #### V ANCP #### [address] GFR/1.73 sq M.predicted MDRD (S/P/Bld) [Vol rate/Area] mL/min/{1.73_m2} Normal [facility] Comment on above: Performed By: #### V ANCP #### [address] Globulin (S) [Mass/Vol] 2.3 g/dL Normal [facility] Comment on above: Performed By: #### V ANCP #### [address] Glucose [Mass/Vol] 115 mg/dL High 70-100 [facility] Comment on above: Result Comment: [place] Glucose Reference Range is dependent on time and content of last meal. Glucose of more than 200 mg/dL in a nonstressed, ambulatory subject supports the diagnosis of Diabetes Mellitus. ADA recommended reference range Performed By: #### V ANCP #### [address] Potassium [Moles/Vol] 4.5 mmol/L Normal 3.5-5.1 [facility] Comment on above: Performed By: #### V ANCP #### [address] Protein [Mass/Vol] 5.9 g/dL Low 6.4-8.9 [facility] Comment on above: Performed By: #### V ANCP #### [address] Sodium [Moles/Vol] 133 mmol/L Low 136-145 [facility] Comment on above: Performed By: #### V ANCP #### [address] Urea nitrogen [Mass/Vol] 11 mg/dL Normal 7-25 [facility] Comment on above: Performed By: #### V ANCP #### [address] ECH echo transthoracicon ECH echo transthoracic [facility] [place] [address] [place] [address] Echocardiogram Signed Patient: Dariel Zabala MR#: [id number] 9 : 1940 Acct:[id number] Age/Sex: 85 / M ADM Date: 07/19/25 Loc: Room: [address] [place] [address] Type: ADM IN Attending Dr: Thalia Cervantes [...] Ao max P.4 mmHg MV E max souarv: 99.2 cm/sec Ao mean P.0 mmHg MV [...] -------+- (more content not included)... Normal [facility] Erythrocyte Sedimentation Ra lisa 07-20-2025 ESR (Bld) [Velocity] 16 mm/h Normal 0-19 [facility] [facility] Comment on above: Result Comment: PERF ORMED BY: [facility] [address] [place] [address] PATHOLOGIST CARDIOPULMONARY SUPERVISOR MARIAM WANG M.D. Performed By: #### G LULS #### Point of Care testing , Glucose Poct Glucometerson 0 07-20-2025 Glucose [Mass/Vol] 171 mg/dL Normal [facility] Comment on above: Result Comment: [facility] Glucose Reference Range is dependent on time and content of last meal. Glucose of more than 200 mg/dL in a nonstressed, ambulatory subject supports the diagnosis of Diabetes Mellitus. PERFORMED BY: [facility] [address] [place] [address] PATHOLOGIST CARDIOPULMONARY SUPERVISOR MARIAM WANG M.D. Performed By: #### G LULS #### Point of Care testing , Glucose [Mass/Vol] 81 mg/dL Normal [facility] Comment on above: Result Comment: [place] [facility] Glucose Reference Range is dependent on time and content of last meal. Glucose of more than 200 mg/dL in a nonstressed, ambulatory subject supports the diagnosis of Diabetes Mellitus. PERFORMED BY: [place] [phone] PATHOLOGIST CARDIOPULMONARY SUPERVISOR MARIAM WANG M.D. Performed By: #### V ANCP #### [address] Glucose [Mass/Vol] 184 mg/dL Normal [facility] Comment on above: Result Comment: [place] [facility] Glucose Reference Range is dependent on time and content of last meal. Glucose of more than 200 mg/dL in a nonstressed, ambulatory subject supports the diagnosis of Diabetes Mellitus. PERFORMED BY: [place] [address] PATHOLOGIST CARDIOPULMONARY SUPERVISOR MARIAM WANG M.D. Performed By: #### V ANCP #### [address] Glucose [Mass/Vol] 115 mg/dL Normal [facility] Comment on above: Result Comment: [place] [facility] Glucose Reference Range is dependent on time and content of last meal. Glucose of more than 200 mg/dL in a nonstressed, ambulatory subject supports the diagnosis of Diabetes Mellitus. PERFORMED BY: [place] [address] PATHOLOGIST CARDIOPULMONARY SUPERVISOR MARIAM WANG M.D. Performed By: #### V ANCP #### [address] Magnesiumon 07-20-2025 Magnesium [Mass/Vol] 1.7 mg/dL Low 1.9-2.7 [facility] Comment on above: Performed By: #### V ANCP #### [place] [id number] [facility] A1C with Estimated Average G renee 07-19-2025 Glucose [Mass/Vol] 131 mg/dL Normal [facility] Comment on above: Result Comment: PERF ORMED BY: [place] [address] PATHOLOGIST CARDIOPULMONARY SUPERVISOR MARIAM WANG M.D. Performed By: #### V ANCP #### [address] HbA1c (Bld) [Mass fraction] 6.2 % High 4.3-5.6 [facility] Comment on above: Result Comment: Incr eased risk for diabetes: 5.7 - 6.4 diabetes: >6.4 glycemic control for adults with diabetes: <7.0 Performed By: #### V ANCP #### [address] Glucose Poct Glucometerson 0 07-19-2025 Glucose [Mass/Vol] 112 mg/dL Normal [facility] Comment on above: Result Comment: [place] Glucose Reference Range is dependent on time and content of last meal. Glucose of more than 200 mg/dL in a nonstressed, ambulatory subject supports the diagnosis of Diabetes Mellitus. PERFORMED BY: [place] [id number] PATHOLOGIST CARDIOPULMONARY SUPERVISOR MARIAM WANG M.D. Performed By: #### G LULS #### Point of Care testing , [facility] 07-17-20 [facility] Case Information Case Priority: None Programs: -- Referral Source: Promotional Representative Referral Reason: Care coordination Case Type: Transition Care Management Risk Score: -- Case Status: Enrolled (July 08, 2025) Date Assigned: July 05, 2025 Assigned By: Alec Rodrigez Date Enrolled: July 08, 2025 Assigned Primary Personnel: Alec Rodrigez Assigned Secondary Personnel: -- Case Physician: YANIQUE MCNEILL CNP Ongoing ASCVD (arteriosclerotic cardiovascular disease) Back spasm [...] (min): 7 Outcome: Case discussion Contact Type: family support coordinator Contact Name: Ania Crews Notes: See [...] return call. Created By: Alec Rodrigez Normal [facility] Sodiumon 07-12-2025 Sodium [Moles/Vol] 131 mmol/L Low 135-145 [facility] Comment on above: Performed By: #### 2 [id number] #### [facility] Laboratory [address] [place] [address] Ambulatory Visit Summaryon 0 07-11-2025 Ambulatory Visit [...] AM EDT With: YANIQUE MCNEILL CNP Where: [place] [id number] 8:00 AM EDT With: Where: [address] [address]- Medications What How Much When Why Instructions [...] disease BMI 23.0-23.9, adult Nonsmoker Natural Lemon [place] flavor Contact prescribing physician if questions or [...] for Prop (more content not included)... Normal [facility] Family Medicine Office/Clini c Noteon 07-11-2025 Family Medicine Office/Clinic Note Family Medicine Office/Clinic Note Chief Complaint TCM visit The patient presents for medication management and sodium level evaluation. HPI Staff Pt presents today for TCM visit. Hospital: [facility] Admission date: 06/17/25 Discharge date: 06/23/25 Symptoms the patient presented with: CVA & Low Sodium Current concerns: Concerned with medications. History of Present Illness 85-year-old male presenting with his for a TCM appointment following discharge from the [place]. He is here for sodium level evaluation [...] qualifying data available Patient Education Stroke Prevention, [id number] Problem List/Past Medical History Ongoing ASCVD (arteriosclerotic [...] mg Cap-DR, (more content not included)... Normal [facility] Comment on above: Result Comment: Elec tronically Signed By: YANIQUE MCNEILL CNP\.br\Date and Time Signed: 07/11/25 15:05 EDT [facility] 07-08-20 [facility] Case Information Case Priority: None Programs: -- Referral Source: Promotional Representative Referral Reason: Care coordination Case Type: Transition [...] to bed at 2100, get up around [id number], sleep through the night Are you having [...] TCM follow up. Patient was admitted to [facility] for CVA and low sodium [...] is good.' (more content not included)... Normal [facility] Family Medicine Office/Clini c Noteon 07-04-2025 [...] and is currently under transitional care. A hearing care professional is expected to contact the patient to [...] No qualifying data available Patient Education Hyponatremia, [id number] Problem List/Past Medical History Ongoing ASCVD (arteriosclerotic [...] [Moles/Vol] 7 mmol/L 5 - 15 mmol/L [facility] Calcium [Mass/Vol] 9.9 mg/dL 8.5 - 10. 5 mg/dL [facility] Chloride [Moles/Vol] 95 mmol/L Low 98 - 10 9 mmol/L [facility] CO2 [Moles/Vol] 31 mmol/L 22 - 32 mmol/L [facility] Creatinine [Mass/Vol] 0.8 mg/dL 0.60 - 1.30 mg/dL [facility] Comment on above: METHOD TRACEABLE TO IDMS STANDARD EGFR Non-Race Dependent 88 - PINF [facility] Comment on above: Reported eGFR is bas ed on the CKD-EPI 2020 equation that does not use a race coefficient. Glucose [Mass/Vol] 101 mg/dL High 65 - 99 mg/dL [facility] Potassium [Moles/Vol] 4.5 mmol/L 3.5 - 5.0 mmol/L [facility] Sodium [Moles/Vol] 133 mmol/L Low 134 - 146 mmol/L [facility] Urea nitrogen [Mass/Vol] 29 mg/dL High 5 - 27 mg/dL [facility] CBC auto differentialon 06-14 Basophils (Bld) [#/Vol] 0.1 10*3/uL 0.0 - 0.2 10*3/uL [facility] Basophils/100 WBC (Bld) 1.5 % [facility] Differential cell count method Nom (Bld) AUTOMATED DIFFERENTIAL [facility] Eosinophils (Bld) [#/Vol] 0.1 10*3/uL 0.0 - 0.4 10*3/uL [facility] Eosinophils/100 WBC (Bld) 3 % [facility] Erythrocyte distribution width (RBC) [Ratio] 13.8 % 11.5 - 15 % [facility] Hematocrit (Bld) [Volume fraction] 40 % 39 - 50 % [facility] Hemoglobin (Bld) [Mass/Vol] 13.8 g/dL 13 - 17 g/dL [facility] Lymphocytes (Bld) [#/Vol] 1.5 10*3/uL 1.0 - 3.5 10*3/uL [facility] Lymphocytes/100 WBC (Bld) 34.7 % [facility] MCH (RBC) [Entitic mass] 31.3 pg 27 - 34 pg [facility] MCHC (RBC) [Mass/Vol] 34.5 g/dL 32 - 3 6 g/dL [facility] MCV (RBC) [Entitic vol] 91 fL 80 - 100 fL [facility] Monocytes (Bld) [#/Vol] 0.4 10*3/uL 0.0 - 0.9 10*3/uL [facility] Monocytes/100 WBC (Bld) 10.2 % [facility] Neutrophils (Bld) [#/Vol] 2.1 10*3/uL 1.5 - 6.6 10*3/uL [facility] Neutrophils/100 WBC (Bld) 50.6 % [facility] Platelet mean volume (Bld) [Entitic vol] 9.5 fL 7 - 12 fL [facility] Platelets (Bld) [#/Vol] 234 10*3/uL [facility] RBC (Bld) [#/Vol] 4.4 10*6/uL [facility] WBC LM Ql (Sput) 4.2 [facility] ECG 12 Leadon 06-23-2025 TRACEMASTERVUE [facility] Electrolyte panelon 06-23-20 25 Anion gap [Moles/Vol] 10 mmol/L 5 - 15 mmol/L [facility] Chloride [Moles/Vol] 96 mmol/L Low 98 - 10 9 mmol/L [facility] CO2 [Moles/Vol] 27 mmol/L 22 - 32 mmol/L [facility] Interpretation and review of laboratory results Abnormal [facility] Potassium [Moles/Vol] 4.2 mmol/L 3.5 - 5.0 mmol/L [facility] Sodium [Moles/Vol] 133 mmol/L Low 134 - 146 mmol/L [facility] Ionized calciumon 06-23-2025 Calcium.ionized ISE [Moles/Vol] 5.1 mg/dL 4.5 - 5.3 mg/dL [facility] Interpretation and review of laboratory results Normal [facility] Magnesiumon 06-23-2025 Magnesium [Mass/Vol] 1.6 mg/dL Low 1.8 - 2 .6 mg/dL [facility] No Panel Informationon 06-23 Interpretation and review of laboratory results Abnormal [facility] Phosphoruson 06-23-2025 Interpretation and review of laboratory results Normal [facility] Phosphate [Mass/Vol] 3.5 mg/dL 2.4 - 4 .9 mg/dL [facility] Protime & INROrdered By: Lucy Branham on 06-23-2025 INR Coag (Platelet poor plasma or blood) [Relative time] 2.8 High 0.9 - 1.2 [facility] Interpretation and review of laboratory results Abnormal [facility] PT Coag (PPP) [Time] 32.[address] [facility] Anti XA unfractionated hepar inOrdered By: Mindy Conklin on 06-22-2025 Heparin unfractionated Chromogenic method Qn (PPP) 0.56 [facility] Comment on above: Optimal time for raimundo ting is 6 hrs post dosage This test is specific for monitoring patients on UFH, and is not recommended for use with other Anti-Xa medications. Interpretation and review of laboratory results Normal [facility] Basic Metabolic Panelon Anion gap [Moles/Vol] 8 mmol/L 5 - 15 mmol/L [facility] Calcium [Mass/Vol] 9.1 mg/dL 8.5 - 10. 5 mg/dL [facility] Chloride [Moles/Vol] 93 mmol/L Low 98 - 10 9 mmol/L [facility] CO2 [Moles/Vol] 26 mmol/L 22 - 32 mmol/L [facility] Creatinine [Mass/Vol] 0.76 mg/dL 0.60 - 1.30 mg/dL [facility] Comment on above: METHOD TRACEABLE TO IDIN STANDARD EGFR Non-Race Dependent 89 - PINF [facility] Comment on above: Reported eGFR is bas ed on the CKD-EPI 2020 equation that does not use a race coefficient. Glucose [Mass/Vol] 135 mg/dL High 65 - 99 mg/dL [facility] Interpretation and review of laboratory results Abnormal [facility] Potassium [Moles/Vol] 4.3 mmol/L 3.5 - 5.0 mmol/L [facility] Sodium [Moles/Vol] 127 mmol/L Low 134 - 146 mmol/L [facility] Urea nitrogen [Mass/Vol] 35 mg/dL High 5 - 27 mg/dL [facility] CBC auto differentialon Basophils (Bld) [#/Vol] 0.1 10*3/uL 0.0 - 0.2 10*3/uL [facility] Basophils/100 WBC (Bld) 1.3 % [facility] Differential cell count method Nom (Bld) AUTOMATED DIFFERENTIAL [facility] Eosinophils (Bld) [#/Vol] 0.1 10*3/uL 0.0 - 0.4 10*3/uL [facility] Eosinophils/100 WBC (Bld) 2 % [facility] Erythrocyte distribution width (RBC) [Ratio] 13.5 % 11.5 - 15 % [facility] Hematocrit (Bld) [Volume fraction] 36.3 % Low 39 - 50 % [facility] Hemoglobin (Bld) [Mass/Vol] 12.5 g/dL Low 13 - 17 g/dL [facility] Interpretation and review of laboratory results Abnormal [facility] Lymphocytes (Bld) [#/Vol] 1.5 10*3/uL 1.0 - 3.5 10*3/uL [facility] Lymphocytes/100 WBC (Bld) 26.9 % [facility] MCH (RBC) [Entitic mass] 31.2 pg 27 - 34 pg [facility] MCHC (RBC) [Mass/Vol] 34.4 g/dL 32 - 3 6 g/dL [facility] MCV (RBC) [Entitic vol] 91 fL 80 - 100 fL [facility] Monocytes (Bld) [#/Vol] 0.7 10*3/uL 0.0 - 0.9 10*3/uL [facility] Monocytes/100 WBC (Bld) 12.2 % [facility] Neutrophils (Bld) [#/Vol] 3.3 10*3/uL 1.5 - 6.6 10*3/uL [facility] Neutrophils/100 WBC (Bld) 57.6 % [facility] Platelet mean volume (Bld) [Entitic vol] 9.8 fL 7 - 12 fL [facility] Platelets (Bld) [#/Vol] 212 10*3/uL [facility] RBC (Bld) [#/Vol] 4 10*6/uL Low [facility] WBC LM Ql (Sput) 5.6 [facility] Electrolyte panelon 06-22-20 25 Anion gap [Moles/Vol] 8 mmol/L 5 - 15 mmol/L [facility] Chloride [Moles/Vol] 93 mmol/L Low 98 - 10 9 mmol/L [facility] CO2 [Moles/Vol] 28 mmol/L 22 - 32 mmol/L [facility] Interpretation and review of laboratory results Abnormal [facility] Potassium [Moles/Vol] 4.4 mmol/L 3.5 - 5.0 mmol/L [facility] Sodium [Moles/Vol] 129 mmol/L Low 134 - 146 mmol/L [facility] Anion gap [Moles/Vol] 7 mmol/L 5 - 15 mmol/L [facility] Chloride [Moles/Vol] 94 mmol/L Low 98 - 10 9 mmol/L [facility] CO2 [Moles/Vol] 28 mmol/L 22 - 32 mmol/L [facility] Interpretation and review of laboratory results Abnormal [facility] Potassium [Moles/Vol] 4.4 mmol/L 3.5 - 5.0 mmol/L [facility] Sodium [Moles/Vol] 129 mmol/L Low 134 - 146 mmol/L [facility] Lavender Topon 06-22-2025 Extra Tube Auto Resulted [facility] No Panel Informationon 06-22 [facility] Protime & INRon 06-22-2025 INR Coag (Platelet poor plasma or blood) [Relative time] 1.8 High 0.9 - 1.2 [facility] Interpretation and review of laboratory results Abnormal [facility] PT Coag (PPP) [Time] 19.9 s High [facility] Anti XA unfractionated hepar inon 06-21-2025 Heparin unfractionated Chromogenic method Qn (PPP) 0.37 [facility] Comment on above: Optimal time for raimundo ting is 6 hrs post dosage This test is specific for monitoring patients on UFH, and is not recommended for use with other Anti-Xa medications. Interpretation and review of laboratory results Normal [facility] Heparin unfractionated Chromogenic method Qn (PPP) 0.65 [facility] Comment on above: Optimal time for raimundo ting is 6 hrs post dosage This test is specific for monitoring patients on UFH, and is not recommended for use with other Anti-Xa medications. Interpretation and review of laboratory results Normal [facility] Basic Metabolic Panelon Anion gap [Moles/Vol] 9 mmol/L 5 - 15 mmol/L [facility] Calcium [Mass/Vol] 9 mg/dL 8.5 - 10. 5 mg/dL [facility] Chloride [Moles/Vol] 93 mmol/L Low 98 - 10 9 mmol/L [facility] CO2 [Moles/Vol] 25 mmol/L 22 - 32 mmol/L [facility] Creatinine [Mass/Vol] 0.72 mg/dL 0.60 - 1.30 mg/dL [facility] Comment on above: METHOD TRACEABLE TO IDIN STANDARD EGFR Non-Race Dependent - PINF [facility] Comment on above: Reported eGFR is bas ed on the CKD-EPI 2020 equation that does not use a race coefficient. Glucose [Mass/Vol] 121 mg/dL High 65 - 99 mg/dL [facility] Interpretation and review of laboratory results Abnormal [facility] Potassium [Moles/Vol] 4.5 mmol/L 3.5 - 5.0 mmol/L [facility] Sodium [Moles/Vol] 127 mmol/L Low 134 - 146 mmol/L [facility] Urea nitrogen [Mass/Vol] 25 mg/dL 5 - 27 mg/dL [facility] C-reactive proteinon 025 CRP [Mass/Vol] 8.9 mg/dL High NINF - 0.7 mg/dL [facility] Interpretation and review of laboratory results Abnormal [facility] CBC auto differentialon Basophils (Bld) [#/Vol] 0.1 10*3/uL 0.0 - 0.2 10*3/uL [facility] Basophils/100 WBC (Bld) 1.1 % [facility] Differential cell count method Nom (Bld) AUTOMATED DIFFERENTIAL [facility] Eosinophils (Bld) [#/Vol] 0 10*3/uL 0.0 - 0.4 10*3/uL [facility] Eosinophils/100 WBC (Bld) 0.9 % [facility] Erythrocyte distribution width (RBC) [Ratio] 13.8 % 11.5 - 15 % [facility] Hematocrit (Bld) [Volume fraction] 40.7 % 39 - 50 % [facility] Hemoglobin (Bld) [Mass/Vol] 14.1 g/dL 13 - 17 g/dL [facility] Lymphocytes (Bld) [#/Vol] 1.5 10*3/uL 1.0 - 3.5 10*3/uL [facility] Lymphocytes/100 WBC (Bld) 28.5 % [facility] MCH (RBC) [Entitic mass] 30.9 pg 27 - 34 pg [facility] MCHC (RBC) [Mass/Vol] 34.7 g/dL 32 - 3 6 g/dL [facility] MCV (RBC) [Entitic vol] 89 fL 80 - 100 fL [facility] Monocytes (Bld) [#/Vol] 0.6 10*3/uL 0.0 - 0.9 10*3/uL [facility] Monocytes/100 WBC (Bld) 12 % [facility] Neutrophils (Bld) [#/Vol] 3 10*3/uL 1.5 - 6.6 10*3/uL [facility] Neutrophils/100 WBC (Bld) 57.5 % [facility] Platelet mean volume (Bld) [Entitic vol] 9.7 fL 7 - 12 fL [facility] Platelets (Bld) [#/Vol] 189 10*3/uL [facility] RBC (Bld) [#/Vol] 4.56 10*6/uL [facility] WBC LM Ql (Sput) 5.3 [facility] CK Totalon 06-21-2025 CK [Catalytic activity/Vol] 26 U/L 24 - 195 U/L [facility] Interpretation and review of laboratory results Normal [facility] CT Head WO contraston 2024 Examination: Noncontrast [...] Esau Restrepo MD on 06/21/2025 10:56 AM [facility] Radiology Study observation (narrative) [facility] CT Head WO contrastOrdered B y: Esau Restrepo on 06-21-2025 [facility] Work Phone: Electrolyte panelon 06-21-20 25 Anion gap [Moles/Vol] 8 mmol/L 5 - 15 mmol/L [facility] Chloride [Moles/Vol] 92 mmol/L Low 98 - 10 9 mmol/L [facility] CO2 [Moles/Vol] 26 mmol/L 22 - 32 mmol/L [facility] Interpretation and review of laboratory results Abnormal [facility] Potassium [Moles/Vol] 4.8 mmol/L 3.5 - 5.0 mmol/L [facility] Sodium [Moles/Vol] 126 mmol/L Low 134 - 146 mmol/L [facility] Anion gap [Moles/Vol] 9 mmol/L 5 - 15 mmol/L [facility] Chloride [Moles/Vol] 93 mmol/L Low 98 - 10 9 mmol/L [facility] CO2 [Moles/Vol] 25 mmol/L 22 - 32 mmol/L [facility] Interpretation and review of laboratory results Abnormal [facility] Potassium [Moles/Vol] 4.4 mmol/L 3.5 - 5.0 mmol/L [facility] Sodium [Moles/Vol] 127 mmol/L Low 134 - 146 mmol/L [facility] Anion gap [Moles/Vol] 9 mmol/L 5 - 15 mmol/L [facility] Chloride [Moles/Vol] 90 mmol/L Low 98 - 10 9 mmol/L [facility] CO2 [Moles/Vol] 25 mmol/L 22 - 32 mmol/L [facility] Interpretation and review of laboratory results Abnormal [facility] Potassium [Moles/Vol] 4.6 mmol/L 3.5 - 5.0 mmol/L [facility] Sodium [Moles/Vol] 124 mmol/L Low 134 - 146 mmol/L [facility] Erythrocyte Sedimentation Ra te (ESR)on 06-21-2025 ESR (Bld) [Velocity] 46 mm/h High 0 - 20 mm/h [facility] Interpretation and review of laboratory results Abnormal [facility] Gas panel (BldV)on Arterial patency Wrist artery --pre arterial puncture N/A [facility] Base excess Calc (Bld) [Moles/Vol] 2 mmol/L 0.0 - 2.0 mmol/L [facility] CO2 (BldV) [Partial pressure] 51.8 mm[Hg] High [facility] HCO3 (Bld) [Moles/Vol] 28.7 mmol/L High 20.0 - 24.0 mmol/L [facility] Interpretation and review of laboratory results Abnormal [facility] Oxygen (BldV) [Partial pressure] 29 mm[Hg] Low [facility] Oxygen therapy source and amount [CARE] Room Air [facility] Oxygen/Inspired gas setting [Volume Fraction] Ventilator 21 % [facility] pH (BldV) 7.351 [pH] 7.320 - 7.420 [facility] SaO2% Calculated from oxygen partial pressure (BldV) [Mass fraction] 50 % [facility] Specimen site Narrative N/A [facility] Specimen type Nom (Spec) VENOUS [facility] No Panel Informationon 06-21 [facility] Protime & INRon 06-21-2025 INR Coag (Platelet poor plasma or blood) [Relative time] 1.6 High 0.9 - 1.2 [facility] Interpretation and review of laboratory results Abnormal [facility] PT Coag (PPP) [Time] 17.7 s High [facility] Anti XA unfractionated hepar inon 06-20-2025 Heparin unfractionated Chromogenic method Qn (PPP) 0.62 [facility] Comment on above: Optimal time for raimundo ting is 6 hrs post dosage This test is specific for monitoring patients on UFH, and is not recommended for use with other Anti-Xa medications. Interpretation and review of laboratory results Normal [facility] Basic Metabolic Panelon Anion gap [Moles/Vol] 8 mmol/L 5 - 15 mmol/L [facility] Calcium [Mass/Vol] 9 mg/dL 8.5 - 10. 5 mg/dL [facility] Chloride [Moles/Vol] 89 mmol/L Low 98 - 10 9 mmol/L [facility] CO2 [Moles/Vol] 27 mmol/L 22 - 32 mmol/L [facility] Creatinine [Mass/Vol] 0.73 mg/dL 0.60 - 1.30 mg/dL [facility] Comment on above: METHOD TRACEABLE TO IDMS STANDARD EGFR Non-Race Dependent 90 - PINF [facility] Comment on above: Reported eGFR is bas ed on the CKD-EPI 2020 equation that does not use a race coefficient. Glucose [Mass/Vol] 98 mg/dL 65 - 99 mg/dL [facility] Potassium [Moles/Vol] 4.3 mmol/L 3.5 - 5.0 mmol/L [facility] Sodium [Moles/Vol] 124 mmol/L Low 134 - 146 mmol/L [facility] Urea nitrogen [Mass/Vol] 12 mg/dL 5 - 27 mg/dL [facility] CBC auto differentialon 080 Basophils (Bld) [#/Vol] 0.1 10*3/uL 0.0 - 0.2 10*3/uL [facility] Basophils/100 WBC (Bld) 1 % [facility] Differential cell count method Nom (Bld) AUTOMATED DIFFERENTIAL [facility] Eosinophils (Bld) [#/Vol] 0.1 10*3/uL 0.0 - 0.4 10*3/uL [facility] Eosinophils/100 WBC (Bld) 1.2 % [facility] Erythrocyte distribution width (RBC) [Ratio] 13.8 % 11.5 - 15 % [facility] Hematocrit (Bld) [Volume fraction] 38.1 % Low 39 - 50 % [facility] Hemoglobin (Bld) [Mass/Vol] 13.3 g/dL 13 - 17 g/dL [facility] Interpretation and review of laboratory results Abnormal [facility] Lymphocytes (Bld) [#/Vol] 1.5 10*3/uL 1.0 - 3.5 10*3/uL [facility] Lymphocytes/100 WBC (Bld) 22.4 % [facility] MCH (RBC) [Entitic mass] 31.3 pg 27 - 34 pg [facility] MCHC (RBC) [Mass/Vol] 34.9 g/dL 32 - 3 6 g/dL [facility] MCV (RBC) [Entitic vol] 90 fL 80 - 100 fL [facility] Monocytes (Bld) [#/Vol] 0.7 10*3/uL 0.0 - 0.9 10*3/uL [facility] Monocytes/100 WBC (Bld) 10.7 % [facility] Neutrophils (Bld) [#/Vol] 4.2 10*3/uL 1.5 - 6.6 10*3/uL [facility] Neutrophils/100 WBC (Bld) 64.7 % [facility] Platelet mean volume (Bld) [Entitic vol] 9.5 fL 7 - 12 fL [facility] Platelets (Bld) [#/Vol] 204 10*3/uL [facility] RBC (Bld) [#/Vol] 4.25 10*6/uL [facility] WBC LM Ql (Sput) 6.[address] [facility] DISCONTINUE IN PROCESS EEG T ESTINGOrdered By: Documentation Systemgenerated on 06-20-2025 [facility] Work Phone: Electrolyte panelon 06-20-20 25 Anion gap [Moles/Vol] 8 mmol/L 5 - 15 mmol/L [facility] Chloride [Moles/Vol] 90 mmol/L Low 98 - 10 9 mmol/L [facility] CO2 [Moles/Vol] 24 mmol/L 22 - 32 mmol/L [facility] Interpretation and review of laboratory results Abnormal [facility] Potassium [Moles/Vol] 4.8 mmol/L 3.5 - 5.0 mmol/L [facility] Sodium [Moles/Vol] 122 mmol/L Low 134 - 146 mmol/L [facility] Anion gap [Moles/Vol] 8 mmol/L 5 - 15 mmol/L [facility] Chloride [Moles/Vol] 90 mmol/L Low 98 - 10 9 mmol/L [facility] CO2 [Moles/Vol] 24 mmol/L 22 - 32 mmol/L [facility] Interpretation and review of laboratory results Abnormal [facility] Potassium [Moles/Vol] 4.6 mmol/L 3.5 - 5.0 mmol/L [facility] Sodium [Moles/Vol] 122 mmol/L Low 134 - 146 mmol/L [facility] Anion gap [Moles/Vol] 8 mmol/L 5 - 15 mmol/L [facility] Chloride [Moles/Vol] 90 mmol/L Low 98 - 10 9 mmol/L [facility] CO2 [Moles/Vol] 24 mmol/L 22 - 32 mmol/L [facility] Interpretation and review of laboratory results Abnormal [facility] Potassium [Moles/Vol] 4.3 mmol/L 3.5 - 5.0 mmol/L [facility] Sodium [Moles/Vol] 122 mmol/L Low 134 - 146 mmol/L [facility] Holter monitor studyon 06-20 Images from the original result were not included. Continuous video EEG monitoring study Date of Report: 06/20/2025 History: This is a n 85 yo man with altered mental status, concern for seizures. Procedure: Start: 20:37 06/19/2025 End: 06:30 06/20/2025 This is a standard [facility] EEG monitoring report using scalp and ear [...] or primary neurological disorders. Yaquelin Esparza MD [employer] [facility]Neurophysi [facility]logy [place] [facility] MANUALLY TRANSCRIBED RESULTS [facility] Lavender Topon 06-20-2025 Extra Tube Auto Resulted [facility] No Panel Informationon 06-20 [facility] Interpretation and review of laboratory results Abnormal [facility] Osmolality, urineOrdered By: Dixon Rodriguez on 06-20-2025 Interpretation and review of laboratory results Normal [facility] Osmolality (U) [Osmolality] 565 mosm/kg [facility] Protime & INRon 06-20-2025 INR Coag (Platelet poor plasma or blood) [Relative time] 1.3 High 0.9 - 1.2 [facility] PT Coag (PPP) [Time] 15 s High [facility] Sodium, urine, randomon Sodium (U) [Moles/Vol] 64 mmol/L [facility] Thyroid profile includes TSH FT4on 06-20-2025 Free T4 [Mass/Vol] 1.13 ng/dL 0.61 - 1. 60 ng/dL [facility] Interpretation and review of laboratory results Abnormal [facility] TSH Qn 4.83 m[IU]/L High [facility] Uric acidon 06-20-2025 Interpretation and review of laboratory results Normal [facility] Urate [Mass/Vol] 4.4 mg/dL 2.6 - 7.2 mg/dL [facility] Urine Creatinine,randomon Creatinine (U) [Mass/Vol] 150.26 mg/dL [facility] Anti XA unfractionated hepar inon 06-19-2025 Heparin unfractionated Chromogenic method Qn (PPP) 0.64 [facility] Comment on above: Optimal time for raimundo ting is 6 hrs post dosage This test is specific for monitoring patients on UFH, and is not recommended for use with other Anti-Xa medications. Interpretation and review of laboratory results Normal [facility] Anti XA unfractionated hepar inOrdered By: Barbra Howell on 06-19-2025 Heparin unfractionated Chromogenic method Qn (PPP) 0.6 [facility] Comment on above: Optimal time for raimundo ting is 6 hrs post dosage This test is specific for monitoring patients on UFH, and is not recommended for use with other Anti-Xa medications. Interpretation and review of laboratory results Normal [facility] Basic Metabolic Panelon Anion gap [Moles/Vol] 9 mmol/L 5 - 15 mmol/L [facility] Calcium [Mass/Vol] 8.8 mg/dL 8.5 - 10. 5 mg/dL [facility] Chloride [Moles/Vol] 88 mmol/L Low 98 - 10 9 mmol/L [facility] CO2 [Moles/Vol] 26 mmol/L 22 - 32 mmol/L [facility] Creatinine [Mass/Vol] 0.73 mg/dL 0.60 - 1.30 mg/dL [facility] Comment on above: METHOD TRACEABLE TO IDMS STANDARD EGFR Non-Race Dependent 90 - PINF [facility] Comment on above: Reported eGFR is bas ed on the CKD-EPI 2020 equation that does not use a race coefficient. Glucose [Mass/Vol] 104 mg/dL High 65 - 99 mg/dL [facility] Interpretation and review of laboratory results Abnormal [facility] Potassium [Moles/Vol] 4.3 mmol/L 3.5 - 5.0 mmol/L [facility] Sodium [Moles/Vol] 123 mmol/L Low 134 - 146 mmol/L [facility] Urea nitrogen [Mass/Vol] 10 mg/dL 5 - 27 mg/dL [facility] CBC auto differentialon Basophils (Bld) [#/Vol] 0.1 10*3/uL 0.0 - 0.2 10*3/uL [facility] Basophils/100 WBC (Bld) 0.7 % [facility] Differential cell count method Nom (Bld) AUTOMATED DIFFERENTIAL [facility] Eosinophils (Bld) [#/Vol] 0.1 10*3/uL 0.0 - 0.4 10*3/uL [facility] Eosinophils/100 WBC (Bld) 1.1 % [facility] Erythrocyte distribution width (RBC) [Ratio] 13.5 % 11.5 - 15 % [facility] Hematocrit (Bld) [Volume fraction] 38.7 % Low 39 - 50 % [facility] Hemoglobin (Bld) [Mass/Vol] 13.4 g/dL 13 - 17 g/dL [facility] Interpretation and review of laboratory results Abnormal [facility] Lymphocytes (Bld) [#/Vol] 1.3 10*3/uL 1.0 - 3.5 10*3/uL [facility] Lymphocytes/100 WBC (Bld) 16 % [facility] MCH (RBC) [Entitic mass] 31.1 pg 27 - 34 pg [facility] MCHC (RBC) [Mass/Vol] 34.6 g/dL 32 - 3 6 g/dL [facility] MCV (RBC) [Entitic vol] 90 fL 80 - 100 fL [facility] Monocytes (Bld) [#/Vol] 1 10*3/uL High 0.0 - 0.9 10*3/uL [facility] Monocytes/100 WBC (Bld) 12.6 % [facility] Neutrophils (Bld) [#/Vol] 5.5 10*3/uL 1.5 - 6.6 10*3/uL [facility] Neutrophils/100 WBC (Bld) 69.6 % [facility] Platelet mean volume (Bld) [Entitic vol] 8.8 fL 7 - 12 fL [facility] Platelets (Bld) [#/Vol] 200 10*3/uL [facility] RBC (Bld) [#/Vol] 4.31 10*6/uL [facility] WBC LM Ql (Sput) 7.9 [facility] Cardiac echo study Procedure Ordered By: Abel Gross on 06-19-2025 Est. RA pressure 15 mmHg [facility] Work Phone: [facility] [employer] Work Phone: Cardiac echo study Procedure on [...] globally hypokinetic. [facility] Radiology Study observation (narrative) [facility] Electrolyte panelon 06-19-20 25 Anion gap [Moles/Vol] 7 mmol/L 5 - 15 mmol/L [facility] Chloride [Moles/Vol] 89 mmol/L Low 98 - 10 9 mmol/L [facility] CO2 [Moles/Vol] 24 mmol/L 22 - 32 mmol/L [facility] Interpretation and review of laboratory results Abnormal [facility] Potassium [Moles/Vol] 4.7 mmol/L 3.5 - 5.0 mmol/L [facility] Sodium [Moles/Vol] 120 mmol/L Low 134 - 146 mmol/L [facility] Magnesiumon 06-19-2025 Interpretation and review of laboratory results Normal [facility] Magnesium [Mass/Vol] 2.3 mg/dL 1.8 - 2 .6 mg/dL [facility] No Panel Informationon 06-19 [facility] US Carotid arteries - bilate ralon [...] at the phone number beside their name. [facility] Radiology Study observation (narrative) [facility] US Carotid arteries - bilate ralOrdered By: Abel Ballesteros on 06-19-2025 [facility] Work Phone: APTTon 06-18-2025 aPTT Coag (PPP) [Time] 29 s [facility] Interpretation and review of laboratory results Normal [facility] Anti XA unfractionated hepar inon 06-18-2025 Heparin unfractionated Chromogenic method Qn (PPP) 0.26 Low [facility] Comment on above: Optimal time for raimundo ting is 6 hrs post dosage This test is specific for monitoring patients on UFH, and is not recommended for use with other Anti-Xa medications. Interpretation and review of laboratory results Abnormal [facility] Basic Metabolic Panelon 08-0 Anion gap [Moles/Vol] 10 mmol/L 5 - 15 mmol/L [facility] Calcium [Mass/Vol] 9.1 mg/dL 8.5 - 10. 5 mg/dL [facility] Chloride [Moles/Vol] 93 mmol/L Low 98 - 10 9 mmol/L [facility] CO2 [Moles/Vol] 24 mmol/L 22 - 32 mmol/L [facility] Creatinine [Mass/Vol] 0.71 mg/dL 0.60 - 1.30 mg/dL [facility] Comment on above: METHOD TRACEABLE TO IDMS STANDARD EGFR Non-Race Dependent - PINF [facility] Comment on above: Reported eGFR is bas ed on the CKD-EPI 2020 equation that does not use a race coefficient. Glucose [Mass/Vol] 81 mg/dL 65 - 99 mg/dL [facility] Interpretation and review of laboratory results Abnormal [facility] Potassium [Moles/Vol] 4.3 mmol/L 3.5 - 5.0 mmol/L [facility] Sodium [Moles/Vol] 127 mmol/L Low 134 - 146 mmol/L [facility] Urea nitrogen [Mass/Vol] 10 mg/dL 5 - 27 mg/dL [facility] Bedside Glucose *Place/Obtai n serum glucose if >500 per glucometer.on 06-18-2025 Glucose [Mass/Vol] 154 mg/dL High 65 - 99 mg/dL [facility] Interpretation and review of laboratory results Abnormal [facility] CBC auto differentialon Basophils (Bld) [#/Vol] 0.1 10*3/uL 0.0 - 0.2 10*3/uL [facility] Basophils/100 WBC (Bld) 1.5 % [facility] Differential cell count method Nom (Bld) AUTOMATED DIFFERENTIAL [facility] Eosinophils (Bld) [#/Vol] 0.2 10*3/uL 0.0 - 0.4 10*3/uL [facility] Eosinophils/100 WBC (Bld) 3.7 % [facility] Erythrocyte distribution width (RBC) [Ratio] 13.3 % 11.5 - 15 % [facility] Hematocrit (Bld) [Volume fraction] 36 % Low 39 - 50 % [facility] Hemoglobin (Bld) [Mass/Vol] 12.7 g/dL Low 13 - 17 g/dL [facility] Interpretation and review of laboratory results Abnormal [facility] Lymphocytes (Bld) [#/Vol] 1.2 10*3/uL 1.0 - 3.5 10*3/uL [facility] Lymphocytes/100 WBC (Bld) 22.7 % [facility] MCH (RBC) [Entitic mass] 31.5 pg 27 - 34 pg [facility] MCHC (RBC) [Mass/Vol] 35.4 g/dL 32 - 3 6 g/dL [facility] MCV (RBC) [Entitic vol] 89 fL 80 - 100 fL [facility] Monocytes (Bld) [#/Vol] 0.6 10*3/uL 0.0 - 0.9 10*3/uL [facility] Monocytes/100 WBC (Bld) 11.6 % [facility] Neutrophils (Bld) [#/Vol] 3.3 10*3/uL 1.5 - 6.6 10*3/uL [facility] Neutrophils/100 WBC (Bld) 60.5 % [facility] Platelet mean volume (Bld) [Entitic vol] 9.5 fL 7 - 12 fL [facility] Platelets (Bld) [#/Vol] 251 10*3/uL [facility] RBC (Bld) [#/Vol] 4.05 10*6/uL Low [facility] WBC LM Ql (Sput) 5.4 [facility] EEGon 06-18-2025 Images from the original [...] or primary neurological disorders. Yaquelin Esparza MD [employer]Neurophysi [facility] [employer] [facility] MANUALLY TRANSCRIBED RESULTS EEGOrdered By: Yaquelin Esparza on 06-18-2025 [facility] Work Phone: Hemoglobinon 06-18-2025 Hemoglobin (Bld) [Mass/Vol] 13.9 g/dL 13 - 17 g/dL [facility] Hemoglobin A1con 06-18-2025 Average glucose Estimated from glycated hemoglobin (Bld) [Mass/Vol] 117 mg/dL [facility] HbA1c (Bld) [Mass fraction] 5.7 % High 4.4 - 5.6 % [facility] Comment on above: ADA Guidelines Result HgbA1c Normal : less than 5.7 % Prediabetes : 5.7 % to 6.4 % Diabetes : > 6.4 % Use with caution in patients with abnormal hemoglobin variants as the half-life of red blood cells and in vivo glycation rates are affected. Interpretation and review of laboratory results Abnormal [facility] Lipid profileon 06-18-2025 Cholesterol [Mass/Vol] 150 mg/dL 150 - 200 mg/dL [facility] Cholesterol in HDL [Mass/Vol] 41 mg/dL 39 - PINF mg/dL [facility] Comment on above: HDL <40 mg/dL - High Risk HDL > or = 40mg/dL- Desirable HDL >60 mg/dL - Negative Risk Cholesterol in HDL [Mass/Vol] 3.7 mg/dL 1.0 - 5.0 [facility] Cholesterol in LDL [Mass/Vol] 95 mg/dL NINF - 130 mg/dL [facility] Comment on above: LDL <100 mg/dL - Carlos A irable LDL >160 mg/dL - High Risk Cholesterol in VLDL [Mass/Vol] 14 mg/dL 0 - 30 mg/dL [facility] Interpretation and review of laboratory results Normal [facility] Triglyceride [Mass/Vol] 70 mg/dL 27 - 150 mg/dL [facility] MR Brain WO contraston 06-18 HISTORY: An [...] Ray Vaughn MD on 06/18/2025 9:50 AM [facility] Ray Vaughn MD - 06/18/2025 HISTORY: An [...] Ray Vaughn MD on 06/18/2025 9:50 AM [facility] Radiology Study observation (narrative) [facility] MR Brain WO contrastOrdered By: Ray Vaughn on 06-18-2025 [facility] Work Phone: Magnesiumon 06-18-2025 Interpretation and review of laboratory results Abnormal [facility] Magnesium [Mass/Vol] 1.6 mg/dL Low 1.8 - 2 .6 mg/dL [facility] No Panel Informationon 06-18 Interpretation and review of laboratory results Normal [facility] OsmolalityOrdered By: Elisa erickson on 06-18-2025 Interpretation and review of laboratory results Abnormal [facility] Osmolality [Osmolality] 261 mosm/kg Low [facility] PST TOPon 06-18-2025 Extra Tube Auto Resulted [facility] Platelet counton 06-18-2025 Platelet mean volume (Bld) [Entitic vol] 8.7 fL 7 - 12 fL [facility] Platelets (Bld) [#/Vol] 214 10*3/uL [facility] Protime & INRon 06-18-2025 INR Coag (Platelet poor plasma or blood) [Relative time] 1.1 0.9 - 1.2 [facility] Interpretation and review of laboratory results Normal [facility] PT Coag (PPP) [Time] [address] [facility] INR Coag (Platelet poor plasma or blood) [Relative time] 1.1 0.9 - 1.2 [facility] Interpretation and review of laboratory results Normal [facility] PT Coag (PPP) [Time] [address] [facility] Bedside Glucose *Place/Obtai n serum glucose if >500 per glucometer.on 06-17-2025 Glucose [Mass/Vol] 111 mg/dL High 65 - 99 mg/dL [facility] Interpretation and review of laboratory results Abnormal [facility] CBC auto differentialon Basophils (Bld) [#/Vol] 0.1 10*3/uL 0.0 - 0.2 10*3/uL [facility] Basophils/100 WBC (Bld) 1.5 % [facility] Differential cell count method Nom (Bld) AUTOMATED DIFFERENTIAL [facility] Eosinophils (Bld) [#/Vol] 0.1 10*3/uL 0.0 - 0.4 10*3/uL [facility] Eosinophils/100 WBC (Bld) 3 % [facility] Erythrocyte distribution width (RBC) [Ratio] 13.8 % 11.5 - 15 % [facility] Hematocrit (Bld) [Volume fraction] 37.3 % Low 39 - 50 % [facility] Hemoglobin (Bld) [Mass/Vol] 13 g/dL 13 - 17 g/dL [facility] Interpretation and review of laboratory results Abnormal [facility] Lymphocytes (Bld) [#/Vol] 1.3 10*3/uL 1.0 - 3.5 10*3/uL [facility] Lymphocytes/100 WBC (Bld) 27.2 % [facility] MCH (RBC) [Entitic mass] 31.2 pg 27 - 34 pg [facility] MCHC (RBC) [Mass/Vol] 34.8 g/dL 32 - 3 6 g/dL [facility] MCV (RBC) [Entitic vol] 90 fL 80 - 100 fL [facility] Monocytes (Bld) [#/Vol] 0.5 10*3/uL 0.0 - 0.9 10*3/uL [facility] Monocytes/100 WBC (Bld) 10.1 % [facility] Neutrophils (Bld) [#/Vol] 2.8 10*3/uL 1.5 - 6.6 10*3/uL [facility] Neutrophils/100 WBC (Bld) 58.2 % [facility] Platelet mean volume (Bld) [Entitic vol] 9.4 fL 7 - 12 fL [facility] Platelets (Bld) [#/Vol] 193 10*3/uL [facility] RBC (Bld) [#/Vol] 4.17 10*6/uL [facility] WBC LM Ql (Sput) 4.[address] [facility] perfusion [...] Nico Dempsey MD on 06/17/2025 5:08 PM SECTRANico Humphreys MD - 06/17/2025 CT CEREBRAL PERF ANALYSIS: [...] Nico Dempsey MD on 06/17/2025 5:08 PM [facility] Radiology Study observation (narrative) [facility] CT perfusion HeadOrdered By: Nico Dempsey on 06-17-[address] [facility] Work Phone: Comprehensive metabolic pane patricio 06-17-2025 Albumin [Mass/Vol] 3.9 g/dL 3.2 - 5.3 g/dL [facility] ALP [Catalytic activity/Vol] 81 U/L 39 - 130 U/L [facility] ALT No additional P-5'-P [Catalytic activity/Vol] 11 U/L NINF - 40 U/L [facility] Anion gap [Moles/Vol] 8 mmol/L 5 - 15 mmol/L [facility] AST [Catalytic activity/Vol] 20 U/L NINF - 41 U/L [facility] Bilirubin [Mass/Vol] 1.1 mg/dL 0.3 - 1 .2 mg/dL [facility] Calcium [Mass/Vol] 9.2 mg/dL 8.5 - 10. 5 mg/dL [facility] Chloride [Moles/Vol] 93 mmol/L Low 98 - 10 9 mmol/L [facility] CO2 [Moles/Vol] 26 mmol/L 22 - 32 mmol/L [facility] Creatinine [Mass/Vol] 0.75 mg/dL 0.60 - 1.30 mg/dL [facility] Comment on above: METHOD TRACEABLE TO IDIN STANDARD EGFR Non-Race Dependent 90 - PINF [facility] Comment on above: Reported eGFR is bas ed on the CKD-EPI 2020 equation that does not use a race coefficient. Glucose [Mass/Vol] 94 mg/dL 65 - 99 mg/dL [facility] Potassium [Moles/Vol] 4.5 mmol/L 3.5 - 5.0 mmol/L [facility] Protein [Mass/Vol] 6.5 g/dL 6.0 - 8.0 g/dL [facility] Sodium [Moles/Vol] 127 mmol/L Low 134 - 146 mmol/L [facility] Urea nitrogen [Mass/Vol] 10 mg/dL 5 - 27 mg/dL [facility] Magnesiumon 06-17-2025 Magnesium [Mass/Vol] 1.7 mg/dL Low 1.8 - 2 .6 mg/dL [facility] No Panel Informationon 06-17 Interpretation and review of laboratory results Abnormal [facility] Phosphoruson 06-17-2025 Interpretation and review of laboratory results Normal [facility] Phosphate [Mass/Vol] 3.3 mg/dL 2.4 - 4 .9 mg/dL [facility] Population Healthon 06-14-20 25 Population [facility] Population Health Case Information Case Priority: None Programs: -- Referral Source: Promotional Representative Referral Reason: Care coordination Case Type: Transition [...] Care Plan Progress Note Admit Date: 06/12/25 [facility] Discharge Date: 06/13/25 Follow-up appointment scheduled? yes, TCM with PCPPedro 06/19/25 at 1340 Did you understand your discharge instructions? yes Are you able to follow them? yes Did you receive new medications? yes, ASA 81 mg QD. stop; lisinopril, meloxicam Have you filled the Rx's? 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 Normal [facility] CMPon 06-07-2025 Albumin [Mass/Vol] 4.1 g/dL Normal 3.3-5.0 [facility] Comment on above: Performed By: #### [id number] #### [facility] Laboratory [address] [place] [address] Albumin/Globulin [Mass ratio] 1.6 {ratio} Normal 1.1-2.2 [facility] Comment on above: Performed By: #### [id number] #### [facility] [address] [place] [address] Alk Phos 86 Int._Unit/L Normal 21-98 [facility] Comment on above: Performed By: #### [id number] #### [facility] [address] [place] [address] ALT 12 Int._Unit/L Normal 6-46 [facility] Comment on above: Performed By: #### 2 [id number] #### [facility] [address] [place] [address] Anion gap [Moles/Vol] 9 mmol/L Normal 6-16 [facility] Comment on above: Performed By: #### 2 [id number] #### [facility] [address] [place] [address] AST 24 Int._Unit/L Normal 5-43 [facility] Comment on above: Performed By: #### 2 [id number] #### [facility] [address] [place] [address] Bili Total 1.0 mg/dL Normal 0.0-1.1 [facility] Comment on above: Performed By: #### 2 [id number] #### [facility] [address] [place] [address] BUN/Creat Ratio 26 No Units High 10-20 [facility] Comment on above: Performed By: #### 2 [id number] #### [facility] [address] [place] [address] Calcium [Mass/Vol] 9.8 mg/dL Normal 8.9-11.1 [facility] Comment on above: Performed By: #### 2 [id number] #### [facility] [address] [place] [address] Chloride [Moles/Vol] 95 mmol/L Low 101-111 [facility] Comment on above: Performed By: #### 2 [id number] #### [facility] [address] [place] [address] CO2 [Moles/Vol] 27 mmol/L Normal 21-31 [facility] Comment on above: Performed By: #### 2 [id number] #### [facility] [address] [place] [address] Creatinine [Mass/Vol] 1.1 mg/dL Normal 0.5-1.3 [facility] Comment on above: Performed By: #### 2 [id number] #### [facility] [address] [place] [address] Globulin (S) [Mass/Vol] 2.6 g/dL Normal 1.4-4.0 [facility] Comment on above: Performed By: #### 2 [id number] #### [facility] [address] [place] [address] Glucose [Mass/Vol] 190 mg/dL Normal 55-199 [facility] Comment on above: Performed By: #### 2 [id number] #### [facility] [address] [place] [address] Potassium [Moles/Vol] 4.2 mmol/L Normal 3.5-5.3 [facility] Comment on above: Performed By: #### 2 [id number] #### [facility] [address] [place] [address] Protein [Mass/Vol] 6.7 g/dL Normal 6.0-7.8 [facility] Comment on above: Performed By: #### 2 [id number] #### [facility] [address] [place] [address] Sodium [Moles/Vol] 127 mmol/L Low 135-145 [facility] Comment on above: Performed By: #### 2 [id number] #### [facility] [address] [place] [address] Urea nitrogen [Mass/Vol] 29 mg/dL High 5-21 [facility] Comment on above: Performed By: #### 2 480504 #### [facility] [address] [place] [address] Family Medicine Office/Clini c Noteon 06-07-2025 Family Medicine Office/Clinic Note Family Medicine Office/Clinic Note Chief Complaint Discuss Medications The patient presents for a follow-up after hospitalization due to a nasal fracture. HPI Staff Former Dr Adam lazaro. Pt presents today to follow up to hospitalization in [place]. Fell and hit his nose. Went to [facility] ER due to excessive bleeding. They packed it and DC'd pt. Upon arrival home, nose started bleeding again. Pt went back to ER, [facility]. He was then transferred to [facility] in [place] where they admitted him for 3-4days. Sodium was dc'd. And pt was started on Lisinopril & Keflex & Ure-NA History of Present Illness 85-year-old male presents with his following a recent hospital stay for a nasal fracture. The incident occurred when the patient fell while attempting to lacey his stomach, resulting in a nasal fracture and subsequent bleeding. He was initially treated at [facility] with nasal packing and later transferred to [facility] for further management. During hospitalization, [...] Hypo-osmolality and hyponatremia) - Reviewed documents from [facility] & [facility] in [place] - Sodium level on discharge 127 - Awaiting laboratory results - f/u in one week Ordered: Non-Formulary Medication, Ure-Na, See Instructions, 15 packet(s), 0, Natural Lemon [place] flavor, [id number], Supply, 178.6, cm, 06/07/25 [...] See Instructions, 15 packet(s), 0, Natural Lemon [place] flavor, [id number], Supply, 178.6, cm, 06/07/25 10:56:00 EDT, Height/Length Dosing, 74.3, kg, 06/07/25 10:56:00 EDT, Weight Dosing 4. Nonsmoker (Z78.9: Other specified health status) Encouraged to continue as a non-smoker Ordered: Non-Formulary Medication, Ure-Na, See Instructions, 15 packet(s), 0, Natural Lemon [place] flavor, [id number], Supply, 178.6, cm, 06/07/25 10:56:00 EDT, Height/Length Dosing, 74.3, kg, 06/07/25 10:56:00 EDT, Weight Dosing total time spent preparing the chart, conducting of the encounter with the patient and family and time spent documenting, reviewing, and ordering tests was 40 minutes. Follow-up With When Contact Information YANIQUE MCNEILL CNP, FAM In 6 days 06/13/2025 EDT [address] [place] [address] Business (1) Additional Instructions: Patient Education Hyponatremia, [id number] Problem List/Past Medical History Ongoing ASCVD (arteriosclerotic cardiovascular disease) Back spasm BMI 23.0-23.9, adult BMI 25.0-25.9,adult Carpal tunnel syndrome, left DM type 2 causing vascular disease Encounter for surveillance of abnormal nevi Erectile dysfunction due to arterial insufficiency Hard of hearing Hyperlipidemia Hyponatremia Hypothyroid Longstanding persistent atrial fibrillation Non (more content not included)... Normal [facility] Comment on above: Result Comment: Elec tronically Signed By: YANIQUE MCNEILL CNP\.br\Date and Time Signed: 06/07/25 14:35 EDT eGFRon 06-07-2025 eGFR 67 mL/min/1.73 m2 Normal >=59 [facility] Comment on above: Performed By: #### 1 [id number] #### [facility] [address] [place] [address] Basic Metabolic Panelon 05-15 Anion gap [Moles/Vol] 12 mmol/L 9 - 16 mmol/L [facility] Calcium [Mass/Vol] 9.2 mg/dL 8.6 - 10. 4 mg/dL [facility] Chloride [Moles/Vol] 95 mmol/L Low 98 - 10 7 mmol/L [facility] CO2 [Moles/Vol] 19 mmol/L Low 20 - 31 mmol/L [facility] Creatinine [Mass/Vol] 0.8 mg/dL 0.7 - 1.2 mg/dL [facility] Jesu Appiaht Rate 88 - PINF [facility] Comment on above: These results are not [...] 112 mg/dL High 74 - 99 mg/dL [facility] Interpretation and review of laboratory results Abnormal [facility] Potassium [Moles/Vol] 4.5 mmol/L 3.7 - 5.3 mmol/L [facility] Comment on above: Specimen hemolysis h as exceeded the interference as defined by Sindy. Value may be falsely increased. Suggest recollection if clinically indicated. Sodium [Moles/Vol] 126 mmol/L Low 136 - 145 mmol/L [facility] Urea nitrogen [Mass/Vol] 13 mg/dL 8 - 23 mg/dL [facility] Basic Metabolic Profon 06-05 Anion gap [Moles/Vol] 12 mmol/L Normal 9-16 [facility] Comment on above: Performed By: #### P T, BMP #### [facility] [address] [place], [place] [id number] [employer]: Pankaj Cordoba MD Calcium [Mass/Vol] 9.2 mg/dL Normal 8.6-10.4 [facility] Comment on above: Performed By: #### P T, BMP #### [facility] [address] [place], [place] [id number] [employer]: Pankaj Cordoba MD Chloride [Moles/Vol] 95 mmol/L Low 98-107 [facility] Comment on above: Performed By: #### P T, BMP #### [address] [address] [employer]: Pankaj Cordoba MD CO2 [Moles/Vol] 19 mmol/L Low 20-31 [facility] Comment on above: Performed By: #### P T, BMP #### [address] [address] [employer]: Pankaj Cordoba MD Creatinine [Mass/Vol] 0.8 mg/dL Normal 0.7-1.2 [facility] Comment on above: Performed By: #### P T, BMP #### [address] [address] [employer]: Pankaj Cordoba MD GFR/1.73 sq M.predicted among non-blacks MDRD (S/P/Bld) [Vol rate/Area] 88 mL/min/{1.73_m2} Normal >60 [facility] Comment on above: Result Comment: These [...] Performed By: #### P T, BMP #### [address] [address] [employer]: Pankaj Cordoba MD Glucose [Mass/Vol] 112 mg/dL High 74-99 [facility] Comment on above: Performed By: #### P T, BMP #### [address] [address] [employer]: Pankaj Cordoba MD Potassium [Moles/Vol] 4.5 mmol/L Normal 3.7-5.3 [facility] Comment on above: Result Comment: Spec imen hemolysis has exceeded the interference as defined by Sindy. Value may be falsely increased. Suggest recollection if clinically indicated. Performed By: #### P T, BMP #### [facility] [address] [place] [address] [employer] Electric[employer] Helper: Pankaj Cordoba MD Sodium [Moles/Vol] 126 mmol/L Low 136-145 [facility] Comment on above: Performed By: #### P T, BMP #### [facility] [address] [place] [address] [employer] Helper: Pankaj Cordoba MD Urea nitrogen [Mass/Vol] 13 mg/dL Normal - [facility] Comment on above: Performed By: #### P T, BMP #### [facility] [address] [place], [place] [phone] [employer]: Pankaj Cordoba MD Electrolyte Panelon 06-05-20 Anion gap [Moles/Vol] 16 mmol/L 9 - 16 mmol/L [facility] Chloride [Moles/Vol] 92 mmol/L Low 98 - 10 7 mmol/L [facility] [employer] CO2 [Moles/Vol] 19 mmol/L Low 20 - 31 mmol/L [facility] [employer] Interpretation and review of laboratory results Abnormal [facility] Potassium [Moles/Vol] 4.4 mmol/L 3.7 - 5.3 mmol/L [facility] Comment on above: Specimen hemolysis h as exceeded the interference as defined by Sindy. Value may be falsely increased. Suggest recollection if clinically indicated. Sodium [Moles/Vol] 127 mmol/L Low 136 - 145 mmol/L [facility] Electrolyteson 06-05-2025 Anion gap [Moles/Vol] 16 mmol/L Normal 9-16 [facility] Comment on above: Performed By: #### L YTE ####[employer] [address] [place] [address] Lab Director: Pankaj Cordoba MD Chloride [Moles/Vol] 92 mmol/L Low 98-107 [facility] Comment on above: Performed By: #### L YTE ####[facility] [address] [place] [address] Lab Director: Pankaj Cordoba MD CO2 [Moles/Vol] 19 mmol/L Low 20-31 [facility] Comment on above: Performed By: #### L YTE ####[facility] [address] [place] [address] lab Director: Pankaj Cordoba MD Potassium [Moles/Vol] 4.4 mmol/L Normal 3.7-5.3 [facility] Comment on above: Result Comment: Spec imen hemolysis has exceeded the interference as defined by Sindy. Value may be falsely increased. Suggest recollection if clinically indicated. Performed By: #### L YTE ####[facility] [address] [place] [address] Lab Director: Pankaj Cordoba MD Sodium [Moles/Vol] 127 mmol/L Low 136-145 [facility] Comment on above: Performed By: #### L YTE ####[facility] [address] [place] [address] lab Director: Pankaj Cordoba MD Glucose,Whole Bloodon 2024 Glucose [Mass/Vol] 145 mg/dL High 75-110 [facility] Glucose [Mass/Vol] 108 mg/dL Normal 75-110 [facility] POC Glucose Fingerstickon Glucose [Mass/Vol] 145 mg/dL High 75 - 110 mg/dL [facility] [employer] Interpretation and review of laboratory results Abnormal [facility] [employer] Glucose [Mass/Vol] 108 mg/dL 75 - 110 mg/dL [facility] PTon 06-05-2025 INR Coag (PPP) [Relative time] 1.9 {INR} Normal [facility] Comment on above: Result Comment: Therapeutic Range: Moderate Anticoagulant Intensity: INR = 2.0-3.0 High Anticoagulant Intensity: INR = 2.5-3.5 Performed By: #### P T, BMP #### [facility] [address] [place] [address] [employer]per: Pankaj Cordoba MD PT Coag (PPP) [Time] 22.4 s High 11.7-14.9 [facility] Comment on above: Performed By: #### P T, BMP #### [facility] [address] [place], [place] [id number] [employer]: Pankaj Cordoba MD Protime-INRon 06-05-2025 INR Coag (PPP) [Relative time] 1.9 {INR} [facility] Comment on above: Therapeutic Range: Moderate Anticoagulant Intensity: INR = 2.0-3.0 High Anticoagulant Intensity: INR = 2.5-3.5 Interpretation and review of laboratory results Abnormal [facility] [employer] PT Coag (PPP) [Time] 22.4 s High [facility] Arterial Bld Gas,POCon 06-04 HCO3 (Bld) [Moles/Vol] 24.6 mmol/L Normal 21.0-28.0 [facility] O2 Device Room Air Normal [facility] Oxygen saturation in Blood 97.2 % Normal 94.0-98.0 [facility] pCO2, Arterial 38.6 mm Hg Normal 35.0-48.0 [facility] pH, Arterial 7.412 Normal 7.350-7.450 [facility] pO2, Arterial 91.7 mm Hg Normal 83.0-108.0 [facility] Positive Base Excess (calc) 0.1 mmol/L Normal 0.0-3.0 [facility] Site Drawn Right Radial Artery Normal [facility] Arterial Blood Gas, POCon HCO3 (Bld) [Moles/Vol] 24.6 mmol/L 21.0 - 28.0 mmol/L [facility] O2 Delivery Device Room Air [facility] Oxygen saturation in Blood 97.2 % 94.0 - 98.0 % [facility] POC pCO2 38.6 [facility] POC pH 7.412 7.350 - 7.450 [facility] POC PO2 91.7 [facility] Positive Base Excess, Art 0.1 mmol/L 0.0 - 3.0 mmol/L [facility] Sample Site Right Radial Artery [facility] BUN, POCon 06-04-2025 Urea nitrogen [Mass/Vol] 11 mg/dL Normal 8-26 [facility] Basic Metab w/rfx MGon 06-04 Anion gap [Moles/Vol] 10 mmol/L Normal 9-16 [facility] Comment on above: Performed By: #### B MPX ####[facility] [address] [place] [address] Lab Director: Pankaj Cordoba MD Calcium [Mass/Vol] 8.6 mg/dL Normal 8.6-10.4 [facility] Comment on above: Performed By: #### B MPX ####[facility] [address] [place] [address] Lab Director: Pankaj Cordoba MD Chloride [Moles/Vol] 87 mmol/L Low 98-107 [facility] Comment on above: Performed By: #### B MPX ####[facility] [address] [place] [address] Lab Director: Pankaj Cordoba MD CO2 [Moles/Vol] 21 mmol/L Normal 20-31 [facility] Comment on above: Performed By: #### B MPX ####[facility] [address] [place] [address] Lab Director: Pankaj Cordoba MD Creatinine [Mass/Vol] 0.7 mg/dL Normal 0.7-1.2 [facility] Comment on above: Performed By: #### B MPX ####[facility] [address] [place] [address] Lab Director: Pankaj Cordoba MD GFR/1.73 sq M.predicted among non-blacks MDRD (S/P/Bld) [Vol rate/Area] mL/min/{1.73_m2} Normal >60 [facility] Comment on above: Result Comment: These [...] tubular secretion. Performed By: #### B MPX ####[address] [address] Lab Director: Pankaj Cordoba MD Glucose [Mass/Vol] 107 mg/dL High 74-99 [facility] Comment on above: Performed By: #### B MPX ####[address] [address] Lab Director: Pankaj Cordoba MD Potassium [Moles/Vol] 4.8 mmol/L Normal 3.7-5.3 [facility] Comment on above: Result Comment: Spec imen hemolysis has exceeded the interference as defined by Sindy. Value may be falsely increased. Suggest recollection if clinically indicated. Performed By: #### B MPX ####[facility] [address] [place] [address] Lab Director: Pankaj Cordoba MD Sodium [Moles/Vol] 118 mmol/L Critically low 136-145 [facility] Comment on above: Performed By: #### B MPX ####[facility] [address] [place] [address] Lab Director: Pankaj Cordoba MD Urea nitrogen [Mass/Vol] 11 mg/dL Normal 8-23 [facility] Comment on above: Performed By: #### B MPX ####[address] [address] Lab Director: Pankaj Cordoba MD Anion gap [Moles/Vol] 12 mmol/L Normal 9-16 [facility] Comment on above: Performed By: #### B MPX #### [address] [address] [employer]: Pankaj Cordoba MD Calcium [Mass/Vol] 8.8 mg/dL Normal 8.6-10.4 [facility] Comment on above: Performed By: #### B MPX #### [address] [address] [employer]: Pankaj Cordoba MD Chloride [Moles/Vol] 88 mmol/L Low 98-107 [facility] Comment on above: Performed By: #### B MPX #### [address] [address] [employer]: Pankaj Cordoba MD CO2 [Moles/Vol] 19 mmol/L Low 20-31 [facility] Comment on above: Performed By: #### B MPX #### [address] [address] [employer]: Pankaj Cordoba MD Creatinine [Mass/Vol] 0.6 mg/dL Low 0.7-1.2 [facility] Comment on above: Performed By: #### B MPX #### [address] [address] [employer]: Pankaj Cordoba MD GFR/1.73 sq M.predicted among non-blacks MDRD (S/P/Bld) [Vol rate/Area] mL/min/{1.73_m2} Normal >60 [facility] Comment on above: Result Comment: These [...] secretion. Performed By: #### B MPX #### [address] [address] [employer]: Pankaj Cordoba MD Glucose [Mass/Vol] 86 mg/dL Normal 74-99 [facility] Comment on above: Performed By: #### B MPX #### [address] [address] [employer]: Pankaj Cordoba MD Potassium [Moles/Vol] 4.6 mmol/L Normal 3.7-5.3 [facility] Comment on above: Result Comment: Spec imen hemolysis has exceeded the interference as defined by Sindy. Value may be falsely increased. Suggest recollection if clinically indicated. Performed By: #### B MPX #### [address] [address] [employer]: Pankaj Cordoba MD Sodium [Moles/Vol] 119 mmol/L Critically low 136-145 [facility] Comment on above: Performed By: #### B MPX #### [address] [address] [employer]: Pankaj Cordoba MD Urea nitrogen [Mass/Vol] 11 mg/dL Normal 8-23 [facility] Comment on above: Performed By: #### B MPX #### [address] [address] [employer]: Pankaj Cordoba MD Anion gap [Moles/Vol] 12 mmol/L Normal 9-16 [facility] Comment on above: Performed By: #### B MPX ####[address] [address] Lab Director: Pankaj Cordoba MD Calcium [Mass/Vol] 8.7 mg/dL Normal 8.6-10.4 [facility] Comment on above: Performed By: #### B MPX ####[address] [phone] Director: Pankaj Cordoba MD Chloride [Moles/Vol] 88 mmol/L Low 98-107 [facility] Comment on above: Performed By: #### B MPX ####[address] [phone] Director: Pankaj Cordoba MD CO2 [Moles/Vol] 19 mmol/L Low 20-31 [facility] Comment on above: Performed By: #### B MPX ####[address] [phone] Director: Pankaj Cordoba MD Creatinine [Mass/Vol] 0.6 mg/dL Low 0.7-1.2 [facility] Comment on above: Performed By: #### B MPX ####[address] [phone] Director: Pankaj Cordoba MD GFR/1.73 sq M.predicted among non-blacks MDRD (S/P/Bld) [Vol rate/Area] mL/min/{1.73_m2} Normal >60 [facility] Comment on above: Result Comment: These [...] tubular secretion. Performed By: #### B MPX ####[address] [phone] Director: Pankaj Cordoba MD Glucose [Mass/Vol] 81 mg/dL Normal 74-99 [facility] Comment on above: Performed By: #### B MPX ####[facility] [address] [place], [place] [phone] Director: Pankaj Cordoba MD Potassium [Moles/Vol] 4.1 mmol/L Normal 3.7-5.3 [facility] Comment on above: Result Comment: Spec imen hemolysis has exceeded the interference as defined by Sindy. Value may be falsely increased. Suggest recollection if clinically indicated. Performed By: #### B MPX ####[facility] [address] [place] [address] [phone] Director: Pankaj Cordoba MD Sodium [Moles/Vol] 119 mmol/L Critically low 136-145 [facility] Comment on above: Performed By: #### B MPX ####[address] [phone] Director: Pankaj Cordoba MD Urea nitrogen [Mass/Vol] 11 mg/dL Normal 8-23 [facility] Comment on above: Performed By: #### B MPX ####[address] [phone] Director: Pankaj Cordoba MD Anion gap [Moles/Vol] 11 mmol/L Normal 9-16 [facility] Comment on above: Performed By: #### O SMO #### [facility] [place] [address] [employer]: Pankaj Cordoba MD Calcium [Mass/Vol] 9.0 mg/dL Normal 8.6-10.4 [facility] Comment on above: Performed By: #### O SMO #### [address] [address] [employer]: Pankaj Cordoba MD Chloride [Moles/Vol] 88 mmol/L Low 98-107 [facility] Comment on above: Performed By: #### O SMO #### [facility] [address] [place] [address] [employer]: Pankaj Cordoba MD CO2 [Moles/Vol] 21 mmol/L Normal 20-31 [facility] Comment on above: Performed By: #### O SMO #### [address] [address] [employer]: Pankaj Cordoba MD Creatinine [Mass/Vol] 0.6 mg/dL Low 0.7-1.2 [facility] Comment on above: Performed By: #### O SMO #### [address] [address] [employer]: Pankaj Cordoba MD GFR/1.73 sq M.predicted among non-blacks MDRD (S/P/Bld) [Vol rate/Area] mL/min/{1.73_m2} Normal >60 [facility] Comment on above: Result Comment: These [...] secretion. Performed By: #### O SMO #### [address] [address] [employer]: Pankaj Cordoba MD Glucose [Mass/Vol] 75 mg/dL Normal 74-99 [facility] Comment on above: Performed By: #### O SMO #### [address] [address] [employer]: Pankaj Cordoba MD Potassium [Moles/Vol] 4.3 mmol/L Normal 3.7-5.3 [facility] Comment on above: Performed By: #### O SMO #### [facility] [address] [place] [address] [employer]per: Pankaj Cordoba MD Sodium [Moles/Vol] 120 mmol/L Low 136-145 [facility] Comment on above: Performed By: #### O SMO #### [address] [address] [employer]: Pankaj Cordoba MD Urea nitrogen [Mass/Vol] 11 mg/dL Normal 8-23 [facility] Comment on above: Performed By: #### O SMO #### [address] [address] [employer]: Pankaj Cordoba MD Anion gap [Moles/Vol] 14 mmol/L Normal 9-16 [facility] Comment on above: Performed By: #### B MPX ####[address] [phone] Director: Pankaj Cordoba MD Calcium [Mass/Vol] 8.5 mg/dL Low 8.6-10.4 [facility] Comment on above: Performed By: #### B MPX ####[facility] [place], [place] [phone] Director: Pankaj Cordoba MD Chloride [Moles/Vol] 89 mmol/L Low 98-107 [facility] Comment on above: Performed By: #### B MPX ####[facility] [address] [place], [place] [phone] Director: Pankaj Cordoba MD CO2 [Moles/Vol] 17 mmol/L Low 20-31 [facility] Comment on above: Performed By: #### B MPX ####[facility] [address] [place], [place] [phone] Director: Pankaj Cordoba MD Creatinine [Mass/Vol] 0.6 mg/dL Low 0.7-1.2 [facility] Comment on above: Performed By: #### B MPX ####[place] [address] Lab Director: Pankaj Cordoba MD GFR/1.73 sq M.predicted among non-blacks MDRD (S/P/Bld) [Vol rate/Area] mL/min/{1.73_m2} Normal >60 [facility] Comment on above: Result Comment: These [...] tubular secretion. Performed By: #### B MPX ####[place], [place] [address])[phone] Director: Pankaj Cordoba MD Glucose [Mass/Vol] 76 mg/dL Normal 74-99 [facility] Comment on above: Performed By: #### B MPX ####[place] [address] lab Director: Pankaj Cordoba MD Potassium [Moles/Vol] 4.4 mmol/L Normal 3.7-5.3 [facility] Comment on above: Result Comment: Spec imen hemolysis has exceeded the interference as defined by Sindy. Value may be falsely increased. Suggest recollection if clinically indicated. Performed By: #### B MPX ####[facility] [address] [place] [address] Lab Director: Pankaj Cordoba MD Sodium [Moles/Vol] 120 mmol/L Low 136-145 [facility] Comment on above: Performed By: #### B MPX ####[place] [address] Lab Director: Pankaj Cordoba MD Urea nitrogen [Mass/Vol] 11 mg/dL Normal 8-23 [facility] Comment on above: Performed By: #### B MPX ####[facility] [address] [place], [place] [phone] Director: Pankaj Cordoba MD Anion gap [Moles/Vol] 15 mmol/L Normal 9-16 [facility] Comment on above: Performed By: #### B MPX ####[facility] [address] [place], [place] [address])[phone] Director: Pankaj Cordoba MD Calcium [Mass/Vol] 8.6 mg/dL Normal 8.6-10.4 [facility] Comment on above: Performed By: #### B MPX ####[facility] [address] [place] [phone])[phone] Director: Pankaj Cordoba MD Chloride [Moles/Vol] 86 mmol/L Low 98-107 [facility] Comment on above: Performed By: #### B MPX ####[facility] [address] [place], [place] [address])[phone] Director: Pankaj Cordoba MD CO2 [Moles/Vol] 16 mmol/L Low 20-31 [facility] Comment on above: Performed By: #### B MPX ####[facility] [address] [place], [place] [address])[phone] Director: Pankaj Cordoba MD Creatinine [Mass/Vol] 0.7 mg/dL Normal 0.7-1.2 [facility] Comment on above: Performed By: #### B MPX ####[facility] [address] [place] [address])[phone] Director: Pankaj Cordoba MD GFR/1.73 sq M.predicted among non-blacks MDRD (S/P/Bld) [Vol rate/Area] mL/min/{1.73_m2} Normal >60 [facility] Comment on above: Result Comment: These [...] tubular secretion. Performed By: #### B MPX ####[facility] [address] [place], [place] [phone] Director: Pankaj Cordoba MD Glucose [Mass/Vol] 90 mg/dL Normal 74-99 [facility] Comment on above: Performed By: #### B MPX ####[address] [phone] Director: Pankaj Cordoba MD Potassium [Moles/Vol] 4.1 mmol/L Normal 3.7-5.3 [facility] Comment on above: Result Comment: Spec imen hemolysis has exceeded the interference as defined by Sindy. Value may be falsely increased. Suggest recollection if clinically indicated. Performed By: #### B MPX ####[facility] [address] [place] [address] [phone] Director: Pankaj Cordoba MD Sodium [Moles/Vol] 117 mmol/L Critically low 136-145 [facility] Comment on above: Performed By: #### B MPX ####[facility] [address] [place] [address] [phone] Director: Pankaj Cordoba MD Urea nitrogen [Mass/Vol] 12 mg/dL Normal 8-23 [facility] Comment on above: Performed By: #### B MPX ####[place] [place] [place] [address] Lab Director: Pankaj Cordoba MD Basic Metabolic Panel w/ Ref maura to MGon 07-22-2025 Anion gap [Moles/Vol] 10 mmol/L 9 - 16 mmol/L [facility] Calcium [Mass/Vol] 8.6 mg/dL 8.6 - 10. 4 mg/dL [facility] Chloride [Moles/Vol] 87 mmol/L Low 98 - 10 7 mmol/L [facility] CO2 [Moles/Vol] 21 mmol/L 20 - 31 mmol/L [facility] Creatinine [Mass/Vol] 0.7 mg/dL 0.7 - 1.2 mg/dL [facility] EstJesu Rate - PINF [facility] Comment on above: These results are not [...] 107 mg/dL High 74 - 99 mg/dL [facility] Interpretation and review of laboratory results Abnormal [facility] Potassium [Moles/Vol] 4.8 mmol/L 3.7 - 5.3 mmol/L [facility] Comment on above: Specimen hemolysis h as exceeded the interference as defined by Sindy. Value may be falsely increased. Suggest recollection if clinically indicated. Sodium [Moles/Vol] 118 mmol/L Critically low 136 - 1 45 mmol/L [facility] Urea nitrogen [Mass/Vol] 11 mg/dL 8 - 23 mg/dL [facility] Anion gap [Moles/Vol] 12 mmol/L 9 - 16 mmol/L [facility] Calcium [Mass/Vol] 8.8 mg/dL 8.6 - 10. 4 mg/dL [facility] Chloride [Moles/Vol] 88 mmol/L Low 98 - 10 7 mmol/L [facility] CO2 [Moles/Vol] 19 mmol/L Low 20 - 31 mmol/L [facility] Creatinine [Mass/Vol] 0.6 mg/dL Low 0.7 - 1.2 mg/dL [facility] Hospital[facility] [employer] Est, Glom Robertot Rate - PINF [facility] [employer] [facility] Comment on above: These results are not intended for use in patients <18 years of age. eGFR results are calculated without a race factor using the 2021 CKD-EPI equation. Careful clinical correlation is recommended, particularly when comparing to results calculated using previous equations. The CKD-EPI equation is less accurate in patients with extremes of muscle mass, extra-renal metabolism of creatine, excessive creatine ingestion, or following therapy that affects renal tubular secretion. Glucose [Mass/Vol] 86 mg/dL 74 - 99 mg/dL [facility] Interpretation and review of laboratory results Abnormal [facility] Potassium [Moles/Vol] 4.6 mmol/L 3.7 - 5.3 mmol/L [facility] [employer] Comment on above: Specimen hemolysis h as exceeded the interference as defined by Sindy. Value may be falsely increased. Suggest recollection if clinically indicated. Sodium [Moles/Vol] 119 mmol/L Critically low 136 - 1 45 mmol/L [facility] Urea nitrogen [Mass/Vol] 11 mg/dL 8 - 23 mg/dL [facility] Anion gap [Moles/Vol] 12 mmol/L 9 - 16 mmol/L [facility] Calcium [Mass/Vol] 8.7 mg/dL 8.6 - 10. 4 mg/dL [facility] Chloride [Moles/Vol] 88 mmol/L Low 98 - 10 7 mmol/L [facility] CO2 [Moles/Vol] 19 mmol/L Low 20 - 31 mmol/L [facility] Creatinine [Mass/Vol] 0.6 mg/dL Low 0.7 - 1.2 mg/dL [facility] HospitalWaveRxVC[facility] Est, Glom Robertot Rate - [facility] [employer] [facility] Comment on above: These results are not [...] [Mass/Vol] 81 mg/dL 74 - 99 mg/dL [facility] Interpretation and review of laboratory results Abnormal [facility] Potassium [Moles/Vol] 4.1 mmol/L 3.7 - 5.3 mmol/L [facility] Comment on above: Specimen hemolysis h as exceeded the interference as defined by Sindy. Value may be falsely increased. Suggest recollection if clinically indicated. Sodium [Moles/Vol] 119 mmol/L Critically low 136 - 1 45 mmol/L [facility] Urea nitrogen [Mass/Vol] 11 mg/dL 8 - 23 mg/dL [facility] Anion gap [Moles/Vol] 11 mmol/L 9 - 16 mmol/L [facility] Calcium [Mass/Vol] 9 mg/dL 8.6 - 10. 4 mg/dL [facility] Chloride [Moles/Vol] 88 mmol/L Low 98 - 10 7 mmol/L [facility] CO2 [Moles/Vol] 21 mmol/L 20 - 31 mmol/L [facility] Creatinine [Mass/Vol] 0.6 mg/dL Low 0.7 - 1.2 mg/dL [facility] Est, Glom Filt Rate - PINF [facility] Comment on above: These results are not [...] [Mass/Vol] 75 mg/dL 74 - 99 mg/dL [facility] Interpretation and review of laboratory results Abnormal [facility] Potassium [Moles/Vol] 4.3 mmol/L 3.7 - 5.3 mmol/L [facility] Sodium [Moles/Vol] 120 mmol/L Low 136 - 145 mmol/L [facility] Urea nitrogen [Mass/Vol] 11 mg/dL 8 - 23 mg/dL [facility] Anion gap [Moles/Vol] 14 mmol/L 9 - 16 mmol/L [facility] Calcium [Mass/Vol] 8.5 mg/dL Low 8.6 - 10. 4 mg/dL [facility] Chloride [Moles/Vol] 89 mmol/L Low 98 - 10 7 mmol/L [facility] CO2 [Moles/Vol] 17 mmol/L Low 20 - 31 mmol/L [facility] Creatinine [Mass/Vol] 0.6 mg/dL Low 0.7 - 1.2 mg/dL [facility] EstJesu Rate - PINF [facility] Comment on above: These results are not [...] [Mass/Vol] 76 mg/dL 74 - 99 mg/dL [facility] Interpretation and review of laboratory results Abnormal [facility] Potassium [Moles/Vol] 4.4 mmol/L 3.7 - 5.3 mmol/L [facility] Comment on above: Specimen hemolysis h as exceeded the interference as defined by Sindy. Value may be falsely increased. Suggest recollection if clinically indicated. Sodium [Moles/Vol] 120 mmol/L Low 136 - 145 mmol/L [facility] Urea nitrogen [Mass/Vol] 11 mg/dL 8 - 23 mg/dL [facility] Anion gap [Moles/Vol] 15 mmol/L 9 - 16 mmol/L [facility] Calcium [Mass/Vol] 8.6 mg/dL 8.6 - 10. 4 mg/dL [facility] Chloride [Moles/Vol] 86 mmol/L Low 98 - 10 7 mmol/L [facility] CO2 [Moles/Vol] 16 mmol/L Low 20 - 31 mmol/L [facility] Creatinine [Mass/Vol] 0.7 mg/dL 0.7 - 1.2 mg/dL [facility] Est, Jesu Michele Rate - PINF [facility] Comment on above: These results are not [...] [Mass/Vol] 90 mg/dL 74 - 99 mg/dL [facility] Interpretation and review of laboratory results Abnormal [facility] Potassium [Moles/Vol] 4.1 mmol/L 3.7 - 5.3 mmol/L [facility] Comment on above: Specimen hemolysis h as exceeded the interference as defined by Sindy. Value may be falsely increased. Suggest recollection if clinically indicated. Sodium [Moles/Vol] 117 mmol/L Critically low 136 - 1 45 mmol/L [facility] Urea nitrogen [Mass/Vol] 12 mg/dL 8 - 23 mg/dL [facility] CALCIUM, IONIC (POC)on 06-04 Calcium.ionized (Bld) [Moles/Vol] 1.18 mmol/L 1.15 - 1.33 mmol/L [facility] CT HEAD WO CONTRASTon 2024 CT [...] Dixon Crockett MD 06/04/25 Final result Normal [facility] CT Head WO contraston 2024 1. No acute intracranial abnormality. 2. Acute right maxillary sinusitis. [facility] EXAMINATION: CT OF THE HEAD WITHOUT [...] cells. SOFT TISSUES/SKULL: The calvarium is intact. [facility] Dixon Crockett MD - 06/04/2025 EXAMINATION: [...] intracranial abnormality. 2. Acute right maxillary sinusitis. [facility] Radiology Study observation (narrative) [facility] CT Head WO contrastOrdered B y: Dixon Crockett on 06-04-2025 [facility] Work Phone: Calcium, Ionic (POC)on 06-04 Calcium [Moles/Vol] 1.18 mmol/L Normal 1.15-1.33 [facility] Cortisolon 06-04-2025 Cortisol 11.7 ug/dL Normal 2.5-19.5 [facility] Comment on above: Result Comment: Cortisol Reference Range: AM 6.0-18.4 PM 2.7-10.5 Performed By: #### O SMO #### [facility] HospitalTumblr [address] [place] [address] [employer] Electric[employer] Helper: Pankaj Cordoba MD Cortisol Totalon 06-04-2025 Cortisol [Mass/Vol] 11.7 ug/dL 2.5 - 19 .5 ug/dL [facility] Comment on above: Cortisol Reference Range: AM 6.0-18.4 PM 2.7-10.5 Creatinine W/GFR Point of Ca reon 06-04-2025 Creatinine [Mass/Vol] 0.7 mg/dL 0.51 - 1.19 mg/dL [facility] eGFR, POC - PINF [facility] Comment on above: These results are [...] 05-15 Creatinine [Mass/Vol] 0.7 mg/dL Normal 0.51-1.19 [facility] GFR/1.73 sq M.predicted among non-blacks MDRD (S/P/Bld) [Vol rate/Area] mL/min/{1.73_m2} Normal >60 [facility] Comment on above: Result Comment: These [...] [Moles/Vol] 12 mmol/L 7 - 16 mmol/L [facility] HospitalAc[facility] Chloride [Moles/Vol] 89 mmol/L Low 98 - 10 7 mmol/L [facility] CO2 Calc (Bld) [Moles/Vol] 23 mmol/L 22 - 30 mmol/L [facility] Potassium [Moles/Vol] 3.9 mmol/L 3.5 - 4.5 mmol/L [facility] Sodium [Moles/Vol] 123 mmol/L Low 138 - 146 mmol/L [facility] Electrolyte Panelon 06-04-20 25 Anion gap [Moles/Vol] 9 mmol/L 9 - 16 mmol/L [facility] Chloride [Moles/Vol] 91 mmol/L Low 98 - 10 7 mmol/L [facility] HospitalWave[facility] [employer] CO2 [Moles/Vol] 21 mmol/L 20 - 31 mmol/L [facility] Interpretation and review of laboratory results Abnormal [facility] Potassium [Moles/Vol] 4.3 mmol/L 3.7 - 5.3 mmol/L [facility] Sodium [Moles/Vol] 121 mmol/L Low 136 - 145 mmol/L [facility] HospitalTetris Online Health [facility] HospitalYoink Games [facility] Anion gap [Moles/Vol] 12 mmol/L 9 - 16 mmol/L [facility] HospitalYoink Games [facility] HospitalXamarin Chloride [Moles/Vol] 90 mmol/L Low 98 - 10 7 mmol/L [facility] Hospital[facility] CO2 [Moles/Vol] 20 mmol/L 20 - 31 mmol/L [facility] Interpretation and review of laboratory results Abnormal [facility] Potassium [Moles/Vol] 4.3 mmol/L 3.7 - 5.3 mmol/L [facility] Sodium [Moles/Vol] 122 mmol/L Low 136 - 145 mmol/L [facility] Anion gap [Moles/Vol] 11 mmol/L 9 - 16 mmol/L [facility] Chloride [Moles/Vol] 88 mmol/L Low 98 - 10 7 mmol/L [facility] CO2 [Moles/Vol] 19 mmol/L Low 20 - 31 mmol/L [facility] Interpretation and review of laboratory results Abnormal [facility] Potassium [Moles/Vol] 4.5 mmol/L 3.7 - 5.3 mmol/L [facility] Sodium [Moles/Vol] 118 mmol/L Critically low 136 - 1 45 mmol/L [facility] Electrolyteson 06-04-2025 Anion gap [Moles/Vol] 9 mmol/L Normal 9-16 [facility] Comment on above: Performed By: #### O SMO #### [place] [address] [employer] Electric[employer] Helper: Pankaj Cordoba MD Chloride [Moles/Vol] 91 mmol/L Low 98-107 [facility] Comment on above: Performed By: #### O SMO #### [facility] HospitalTumblr [address] [place], [place] [phone] [employer] Helper: Pankaj Cordoba MD CO2 [Moles/Vol] 21 mmol/L Normal 20-31 [facility] Comment on above: Performed By: #### O SMO #### [facility] Hospital[facility] [address] [place], [place] [phone] [employer] Helper: Pankaj Cordoba MD Potassium [Moles/Vol] 4.3 mmol/L Normal 3.7-5.3 [facility] Comment on above: Performed By: #### O SMO #### [facility] [address] [place], [place] [address], [place] [address] [employer] Helper: Pankaj Cordoba MD Sodium [Moles/Vol] 121 mmol/L Low 136-145 [facility] Comment on above: Performed By: #### O SMO #### [facility] [address] [place] [address] [employer] Helper: Pankaj Cordoba MD Anion gap [Moles/Vol] 12 mmol/L Normal 9-16 [facility] Comment on above: Performed By: #### L YTE ####[address] [phone] Director: Pankaj Cordoba MD Chloride [Moles/Vol] 90 mmol/L Low 98-107 [facility] Comment on above: Performed By: #### L YTE ####[address] [phone] Director: Pankaj Cordoba MD CO2 [Moles/Vol] 20 mmol/L Normal 20-31 [facility] Comment on above: Performed By: #### L YTE ####[address] [address] Lab Director: Pankaj Cordoba MD Potassium [Moles/Vol] 4.3 mmol/L Normal 3.7-5.3 [facility] Comment on above: Performed By: #### L YTE ####[address] [phone] Director: Pankaj Cordoba MD Sodium [Moles/Vol] 122 mmol/L Low 136-145 [facility] Comment on above: Performed By: #### L YTE ####[address] [phone] Director: Pankaj Cordoba MD Anion gap [Moles/Vol] 11 mmol/L Normal 9-16 [facility] Comment on above: Performed By: #### O SMO #### [facility] [address] [place] [address] [employer] Helper: Pankaj Cordoba MD Chloride [Moles/Vol] 88 mmol/L Low 98-107 [facility] Comment on above: Performed By: #### O SMO #### [address] [phone] [employer]per: Pankaj Cordoba MD CO2 [Moles/Vol] 19 mmol/L Low 20-31 [facility] Comment on above: Performed By: #### O SMO #### [address] [address] [employer] Electric[employer] Helper: Pankaj Cordoba MD Potassium [Moles/Vol] 4.5 mmol/L Normal 3.7-5.3 [facility] Comment on above: Performed By: #### O SMO #### [address] [address] [employer] Helper: Pankaj Cordoba MD Sodium [Moles/Vol] 118 mmol/L Critically low 136-145 [facility] Comment on above: Performed By: #### O SMO #### [address] [address] [employer] Helper: Pankaj Cordoba MD Anion gap [Moles/Vol] 12 mmol/L Normal 7-16 [facility] Chloride [Moles/Vol] 89 mmol/L Low 98-107 [facility] CO2 [Moles/Vol] 23 mmol/L Normal 22-30 [facility] Potassium [Moles/Vol] 3.9 mmol/L Normal 3.5-4.5 [facility] Sodium [Moles/Vol] 123 mmol/L Low 138-146 [facility] Glucose (POC)on 06-04-2025 Glucose [Mass/Vol] 81 mg/dL Normal 74-100 [facility] Glucose,Whole Bloodon 2024 Glucose [Mass/Vol] 119 mg/dL High 75-110 [facility] Glucose [Mass/Vol] 96 mg/dL Normal 75-110 [facility] Glucose [Mass/Vol] 117 mg/dL High 75-110 [facility] Glucose [Mass/Vol] 93 mg/dL Normal 75-110 [facility] Glucose [Mass/Vol] 76 mg/dL Normal 75-110 [facility] Hemoglobin and hematocrit, b loodon 06-04-2025 Hematocrit (Bld) [Volume fraction] 36 % Low 41 - 53 % [facility] Hemoglobin (Bld) [Mass/Vol] 12.3 g/dL Low 13.5 - 17.5 g/dL [facility] Hgb/Hct, POCon 06-04-2025 Hematocrit (Bld) [Volume fraction] 36 % Low 41-53 [facility] Hemoglobin (Bld) [Mass/Vol] 12.3 g/dL Low 13.5-17.5 [facility] Lactic Acid (POC)on 06-04-20 25 Lactate [Moles/Vol] 0.8 mmol/L Normal 0.56-1.39 [facility] Lactic Acid, POCon 5 POC Lactic Acid 0.8 mmol/L 0.56 - 1.39 mmol/L [facility] No Panel Informationon 06-04 [facility] Interpretation and review of laboratory results Abnormal [facility] Osmolality, Urineon 06-04-20 25 Osmolality (U) [Osmolality] 590 mosm/kg [facility] Osmolality - Urine 590 mOsm/kg Normal 80-1300 [facility] Comment on above: Performed By: #### U RNA, UOSMO ####[facility] [address] [place] [address] lab Director: Pankaj Cordoba MD POC Glucose Fingerstickon Glucose [Mass/Vol] 119 mg/dL High 75 - 110 mg/dL [facility] Interpretation and review of laboratory results Abnormal [facility] Glucose [Mass/Vol] 96 mg/dL 75 - 110 mg/dL [facility] Glucose [Mass/Vol] 117 mg/dL High 75 - 110 mg/dL [facility] Interpretation and review of laboratory results Abnormal [facility] Glucose [Mass/Vol] 93 mg/dL 75 - 110 mg/dL [facility] Glucose [Mass/Vol] 76 mg/dL 75 - 110 mg/dL [facility] POCT Glucoseon 06-04-2025 Glucose [Mass/Vol] 81 mg/dL 74 - 100 mg/dL [facility] POCT urea (BUN)on 06-04-2025 Urea nitrogen [Mass/Vol] 11 mg/dL 8 - 26 mg/dL [facility] PTon 06-04-2025 INR Coag (PPP) [Relative time] 1.8 {INR} Normal [facility] Comment on above: Result Comment: Therapeutic Range: Moderate Anticoagulant Intensity: INR = 2.0-3.0 High Anticoagulant Intensity: INR = 2.5-3.5 Performed By: #### P T #### [facility] Hospital[facility] [address] [place], [place] [phone] [employer]per: Pankaj Cordoba MD PT Coag (PPP) [Time] 21.4 s High 11.7-14.9 [facility] Comment on above: Performed By: #### P T #### [facility] Hospital[facility] [address] [place] [id number] [employer] Helper: Pnakaj Cordoba MD Protime-INRon 06-04-2025 INR Coag (PPP) [Relative time] 1.8 {INR} [facility] Comment on above: Therapeutic Range: Moderate Anticoagulant Intensity: INR = 2.0-3.0 High Anticoagulant Intensity: INR = 2.5-3.5 Interpretation and review of laboratory results Abnormal [facility] PT Coag (PPP) [Time] 21.4 s High [facility] Sodium, Random Uron 06-04-20 25 Sodium (U) [Moles/Vol] 159 mmol/L Normal [facility] Comment on above: No normal range esta blished. Result Comment: No n ormal range established. Performed By: #### U RNA, UOSMO ####[facility] HospitalViblio [address] [place], [place] [id number] Lab Director: Pankaj Cordoba MD Sodium, urine, randomon 05-15 [facility] T4, Freeon 06-04-2025 Free T4 [Mass/Vol] 1.5 ng/dL 0.92 - 1. 68 ng/dL [facility] TSHon 06-04-2025 TSH Qn 2.95 m[IU]/L [facility] Thyroid Stim. Horm.on 2024 Thyroid Stim. Horm. 2.95 uIU/mL Normal 0.27-4.20 [facility] Comment on above: Performed By: #### O SMO #### [facility] [address] [place] [address] [employer] Helper: Pankaj Cordoba MD Thyroxine, Freeon 06-04-2025 Thyroxine, Free 1.5 ng/dL Normal 0.92-1.68 [facility] Comment on above: Performed By: #### O SMO #### [facility] [address] [place] [id number] [employer]per: Pankaj Cordoba MD Basic Metab w/rfx MGon 06-03 Anion gap [Moles/Vol] 11 mmol/L Normal 9-16 [facility] Comment on above: Performed By: #### O SMO #### [facility] [address] [place] [phone] [employer]per: Pankaj Cordoba MD Calcium [Mass/Vol] 9.0 mg/dL Normal 8.6-10.4 [facility] Comment on above: Performed By: #### O SMO #### [address] [address] [employer]per: Pankaj Cordoba MD Chloride [Moles/Vol] 90 mmol/L Low 98-107 [facility] Comment on above: Performed By: #### O SMO #### [facility] [address] [place] [id number] [employer]per: Pankaj Cordoba MD CO2 [Moles/Vol] 20 mmol/L Normal 20-31 [facility] Comment on above: Performed By: #### O SMO #### [address] [address] [employer]per: Pankaj Cordoba MD Creatinine [Mass/Vol] 0.7 mg/dL Normal 0.7-1.2 [facility] Comment on above: Performed By: #### O SMO #### [address] [address] [employer]per: Pankaj Cordoba MD GFR/1.73 sq M.predicted among non-blacks MDRD (S/P/Bld) [Vol rate/Area] mL/min/{1.73_m2} Normal >60 [facility] Comment on above: Result Comment: These [...] secretion. Performed By: #### O SMO #### [address] [address] [employer]: Pankaj Cordoba MD Glucose [Mass/Vol] 107 mg/dL High 74-99 [facility] Comment on above: Performed By: #### O SMO #### [address] [phone] [employer]: Pankaj Cordoba MD Potassium [Moles/Vol] 4.8 mmol/L Normal 3.7-5.3 [facility] Comment on above: Result Comment: Spec imen hemolysis has exceeded the interference as defined by Sindy. Value may be falsely increased. Suggest recollection if clinically indicated. Performed By: #### O SMO #### [facility] [address] [place], [place] [phone] [employer]: Pankaj Cordoba MD Sodium [Moles/Vol] 121 mmol/L Low 136-145 [facility] Comment on above: Performed By: #### O SMO #### [facility] [place], [place] [phone] [employer]: Pankaj Cordoba MD Urea nitrogen [Mass/Vol] 13 mg/dL Normal 8-23 [facility] Comment on above: Performed By: #### O SMO #### [employer] [address] [place] [address] [employer]: Pankaj Cordoba MD Basic Metabolic Panel w/ Ref maura to MGon 06-03-2025 Anion gap [Moles/Vol] 11 mmol/L 9 - 16 mmol/L [facility] Calcium [Mass/Vol] 9 mg/dL 8.6 - 10. 4 mg/dL [facility] Chloride [Moles/Vol] 90 mmol/L Low 98 - 10 7 mmol/L [facility] CO2 [Moles/Vol] 20 mmol/L 20 - 31 mmol/L [facility] Creatinine [Mass/Vol] 0.7 mg/dL 0.7 - 1.2 mg/dL [facility] Est, Glom Filt Rate - PINF [facility] Comment on above: These results are not [...] 107 mg/dL High 74 - 99 mg/dL [facility] Interpretation and review of laboratory results Abnormal [facility] Potassium [Moles/Vol] 4.8 mmol/L 3.7 - 5.3 mmol/L [facility] Comment on above: Specimen hemolysis h as exceeded the interference as defined by Sindy. Value may be falsely increased. Suggest recollection if clinically indicated. Sodium [Moles/Vol] 121 mmol/L Low 136 - 145 mmol/L [facility] Urea nitrogen [Mass/Vol] 13 mg/dL 8 - 23 mg/dL [facility] CBC with Auto Differentialon 06-03-2025 Basophils (Bld) [#/Vol] 0.04 10*3/uL [facility] Basophils/100 WBC (Bld) 1 % 0 - 2 % [facility] Eosinophils (Bld) [#/Vol] 0.08 10*3/uL [facility] Eosinophils/100 WBC (Bld) 1 % 1 - 4 % [facility] Erythrocyte distribution width (RBC) [Ratio] 13 % 11.8 - 14.4 % [facility] Hematocrit (Bld) [Volume fraction] 35.2 % Low 40.7 - 50.3 % [facility] Hemoglobin (Bld) [Mass/Vol] 12.3 g/dL Low 13.0 - 17.0 g/dL [facility] Immature granulocytes (Bld) [#/Vol] [facility] Immature granulocytes/100 WBC (Bld) 0 % 0 [facility] Interpretation and review of laboratory results Abnormal [facility] Lymphocytes/100 WBC (Bld) 23 % Low 24 - 43 % [facility] Lymphocytes/100 WBC (Bld) 1.68 % [facility] MCH (RBC) [Entitic mass] 30.9 pg 25.2 - 33.5 pg [facility] MCHC (RBC) [Mass/Vol] 34.9 g/dL High 28.4 - 34.8 g/dL [facility] MCV (RBC) [Entitic vol] 88.4 fL 82.6 - 102.9 fL [facility] Monocytes/100 WBC (Bld) 11 % 3 - 12 % [facility] Monocytes/100 WBC (Bld) 0.8 % [facility] Neutrophils/100 WBC (Bld) 64 % 36 - 65 % [facility] Nucleated RBC/100 WBC (Bld) [Ratio] 0 % 0.0 per 100 WBC [facility] [employer] Platelet, Fluorescence 132 Low [facility] Platelets (Bld) [#/Vol] See Reflexed IPF Result [facility] [employer] Platelets reticulated/100 platelets Auto (Bld) 5.3 % 1.1 - 10.3 % [facility] RBC (Bld) [#/Vol] 3.98 10*6/uL Low 4.21 - 5.7 7 m/uL [facility] [employer] Segmented neutrophils/100 WBC (Bld) 4.63 % [facility] WBC other (Bld) [#/Vol] 7.2 [facility] CBC with Diffon 06-03-2025 Abs. Basophil 0.04 k/uL Normal 0.00-0.20 [facility] Comment on above: Performed By: #### O SMO #### [facility] [address] [place] [address] [employer]: Pankaj Cordoba MD Abs.Imm.Granulocyte <0.03 Normal 0.00-0.30 [facility] Comment on above: Performed By: #### O SMO #### [facility] [address] [place] [address] [employer]: Pankaj Cordoba MD Abs.Neutrophil (Seg) 4.63 k/uL Normal 1.50-8.10 [facility] Comment on above: Performed By: #### O SMO #### [facility] [address] [place] [address] [employer]: Pankaj Cordoba MD Basophils/100 WBC (Bld) 1 % Normal 0-2 [facility] Comment on above: Performed By: #### O SMO #### [address] [address] [employer]: Pankaj Cordoba MD Eosinophils (Bld) [#/Vol] 0.08 10*3/uL Normal 0.00-0.44 [facility] Comment on above: Performed By: #### O SMO #### [address] [address] [employer]: Pankaj Cordoba MD Eosinophils/100 WBC (Bld) 1 % Normal 1-4 [facility] Comment on above: Performed By: #### O SMO #### [address] [address] [employer]: Pankaj Cordoba MD Erythrocyte distribution width (RBC) [Ratio] 13.0 % Normal 11.8-14.4 [facility] Comment on above: Performed By: #### O SMO #### [address] [address] [employer]: Pankaj Cordoba MD Hematocrit (Bld) [Volume fraction] 35.2 % Low 40.7-50.3 [facility] Comment on above: Performed By: #### O SMO #### [address] [address] [employer]: Pankaj Cordoba MD Hemoglobin (Bld) [Mass/Vol] 12.3 g/dL Low 13.0-17.0 [facility] Comment on above: Performed By: #### O SMO #### [address] [address] [employer]: Pankaj Cordoba MD Immature granulocytes/100 WBC (Bld) 0 % Normal 0 [facility] Comment on above: Performed By: #### O SMO #### [address] [address] [employer]: Pankaj Cordoba MD Lymphocytes (Bld) [#/Vol] 1.68 10*3/uL Normal 1.10-3.70 [facility] Comment on above: Performed By: #### O SMO #### [address] [address] [employer]: Pankaj Cordoba MD Lymphocytes/100 WBC (Bld) 23 % Low 24-43 [facility] Comment on above: Performed By: #### O SMO #### [address] [address] [employer]: Pankaj Cordoba MD MCH (RBC) [Entitic mass] 30.9 pg Normal 25.2-33.5 [facility] Comment on above: Performed By: #### O SMO #### [address] [address] [employer]: Pankaj Cordoba MD MCHC (RBC) [Mass/Vol] 34.9 g/dL High 28.4-34.8 [facility] Comment on above: Performed By: #### O SMO #### [address] [address] [employer]: Pankaj Cordoba MD MCV (RBC) [Entitic vol] 88.4 fL Normal 82.6-102.9 [facility] Comment on above: Performed By: #### O SMO #### [address] [address] [employer]: Pankaj Cordoba MD Monocytes (Bld) [#/Vol] 0.80 10*3/uL Normal 0.10-1.20 [facility] Comment on above: Performed By: #### O SMO #### [address] [address] [employer]per: Pankaj Cordoba MD Monocytes/100 WBC (Bld) 11 % Normal 3-12 [facility] Comment on above: Performed By: #### O SMO #### [address] [address] [employer]: Pankaj Cordoba MD Neutrophil (Seg) 64 % Normal 36-[address] [facility] Comment on above: Performed By: #### O SMO #### [address] [address] [employer]per: Pankaj Cordoba MD NRBC Automated 0.0 per 100 WBC Normal 0.0 [facility] Comment on above: Performed By: #### O SMO #### [address] [address] [employer]per: Pankaj Cordboa MD Platelet Count See Reflexed IPF Result Normal 138-453 [facility] Comment on above: Performed By: #### O SMO #### [address] [address] [employer] Electric[employer]per: Pankaj Cordoba MD Platelet, Fluoresc. 132 k/uL Low 138-453 [facility] Comment on above: Performed By: #### O SMO #### [address] [address] [employer]: Pankaj Cordoba MD PLT, Immature Fract. 5.3 % Normal 1.1-10.3 [facility] Comment on above: Performed By: #### O SMO #### [address] [address] [employer]: Pankaj Cordoba MD RBC (Bld) [#/Vol] 3.98 10*6/uL Low 4.21-5.77 [facility] Comment on above: Performed By: #### O SMO #### [address] [address] [employer]per: Pankaj Cordoba MD WBC (Bld) [#/Vol] 7.2 10*3/uL Normal 3.5-11.3 [facility] Comment on above: Performed By: #### O SMO #### [employer] [address] [place], [place] [phone] [employer] Helper: Pankaj Cordoba MD Electrolyte Panelon 06-03-20 Anion gap [Moles/Vol] 14 mmol/L 9 - 16 mmol/L [facility] Chloride [Moles/Vol] 86 mmol/L Low 98 - 10 7 mmol/L [facility] CO2 [Moles/Vol] 17 mmol/L Low 20 - 31 mmol/L [facility] Interpretation and review of laboratory results Abnormal [facility] Potassium [Moles/Vol] 4.4 mmol/L 3.7 - 5.3 mmol/L [facility] Comment on above: Specimen hemolysis h as exceeded the interference as defined by Sindy. Value may be falsely increased. Suggest recollection if clinically indicated. Sodium [Moles/Vol] 117 mmol/L Critically low 136 - 1 45 mmol/L [facility] Anion gap [Moles/Vol] 12 mmol/L 9 - 16 mmol/L [facility] Chloride [Moles/Vol] 89 mmol/L Low 98 - 10 7 mmol/L [facility] CO2 [Moles/Vol] 19 mmol/L Low 20 - 31 mmol/L [facility] Interpretation and review of laboratory results Abnormal [facility] Potassium [Moles/Vol] 4.5 mmol/L 3.7 - 5.3 mmol/L [facility] Comment on above: Specimen hemolysis h as exceeded the interference as defined by Sindy. Value may be falsely increased. Suggest recollection if clinically indicated. Sodium [Moles/Vol] 120 mmol/L Low 136 - 145 mmol/L [facility] Electrolyteson 06-03-2025 Anion gap [Moles/Vol] 14 mmol/L Normal 9-16 [facility] Comment on above: Performed By: #### L YTE ####[employer] [place], [place] [phone] Lab Director: Pankaj Cordoba MD Chloride [Moles/Vol] 86 mmol/L Low 98-107 [facility] Comment on above: Performed By: #### L YTE ####[facility] [address] [place], [place] [phone] Director: Pankaj Cordoba MD CO2 [Moles/Vol] 17 mmol/L Low 20-31 [facility] Comment on above: Performed By: #### L YTE ####[facility] [address] [place], [place] [phone] Director: Pankaj Cordoba MD Potassium [Moles/Vol] 4.4 mmol/L Normal 3.7-5.3 [facility] Comment on above: Result Comment: Spec imen hemolysis has exceeded the interference as defined by Sindy. Value may be falsely increased. Suggest recollection if clinically indicated. Performed By: #### L YTE ####[facility] [address] [place], [place] [phone] Director: Pankaj Cordoba MD Sodium [Moles/Vol] 117 mmol/L Critically low 136-145 [facility] Comment on above: Performed By: #### L YTE ####[facility] [address] [place] [address] Lab Director: Pankaj Cordoba MD Anion gap [Moles/Vol] 12 mmol/L Normal 9-16 [facility] Comment on above: Performed By: #### L YTE ####[facility] [address] [place], [place] [phone] Director: Pankaj Cordoba MD Chloride [Moles/Vol] 89 mmol/L Low 98-107 [facility] Comment on above: Performed By: #### L YTE ####[facility] [address] [place] [address] Lab Director: Pankaj Cordoba MD CO2 [Moles/Vol] 19 mmol/L Low 20-31 [facility] Comment on above: Performed By: #### L YTE ####[employer] [address] [place] [address] Lab Director: Pankaj Cordoba MD Potassium [Moles/Vol] 4.5 mmol/L Normal 3.7-5.3 [facility] Comment on above: Result Comment: Spec imen hemolysis has exceeded the interference as defined by Sindy. Value may be falsely increased. Suggest recollection if clinically indicated. Performed By: #### L YTE ####[employer] [place] [address] Lab Director: Pankaj Cordoba MD Sodium [Moles/Vol] 120 mmol/L Low 136-145 [facility] Comment on above: Performed By: #### L YTE ####[employer] [place] [address] Lab Director: Pankaj Cordoba MD Glucose,Whole Bloodon 2024 Glucose [Mass/Vol] 92 mg/dL Normal 75-110 [facility] Glucose [Mass/Vol] 98 mg/dL Normal 75-110 [facility] Glucose [Mass/Vol] 124 mg/dL High 75-110 [facility] Glucose [Mass/Vol] 117 mg/dL High 75-110 [facility] Osmolalityon 06-03-2025 Interpretation and review of laboratory results Abnormal [employer] [facility] [employer] Osmolality [Osmolality] 251 mosm/kg Low [facility] [employer] [facility] Osmolality [Osmolality] 251 mosm/kg Low 275-295 [facility] Comment on above: Performed By: #### O SMO #### [employer] [address] [place], [place] [phone] [employer] Electric[employer] Helper: Pankaj Cordoba MD POC Glucose Fingerstickon Glucose [Mass/Vol] 92 mg/dL 75 - 110 mg/dL [employer] [facility] Center[facility] Glucose [Mass/Vol] 98 mg/dL 75 - 110 mg/dL [facility] Glucose [Mass/Vol] 124 mg/dL High 75 - 110 mg/dL [facility] Interpretation and review of laboratory results Abnormal [facility] Glucose [Mass/Vol] 117 mg/dL High 75 - 110 mg/dL [facility] Interpretation and review of laboratory results Abnormal [facility] PREVIOUS SPECIMENon 06-03-20 25 [facility] PTon 06-03-2025 INR Coag (PPP) [Relative time] 1.7 {INR} Normal [facility] Comment on above: Result Comment: Therapeutic Range: Moderate Anticoagulant Intensity: INR = 2.0-3.0 High Anticoagulant Intensity: INR = 2.5-3.5 Performed By: #### O SMO #### [employer] [address] [place], [place] [phone] [employer]per: Pankaj Cordoba MD PT Coag (PPP) [Time] 20.3 s High 11.7-14.9 [facility] Comment on above: Performed By: #### O SMO #### [employer] [address] [place], [place] [address] [employer] Helper: Pankaj Cordoba MD Protime-INRon 06-03-2025 INR Coag (PPP) [Relative time] 1.7 {INR} [facility] Comment on above: Therapeutic Range: Moderate Anticoagulant Intensity: INR = 2.0-3.0 High Anticoagulant Intensity: INR = 2.5-3.5 Interpretation and review of laboratory results Abnormal [facility] PT Coag (PPP) [Time] 20.3 s High [facility] Basic Metab w/rfx MGon 06-02 Anion gap [Moles/Vol] 13 mmol/L Normal 9-16 [facility] Comment on above: Performed By: #### B MPX, PT, CDP ####[employer] [place], [place] [address] Lab Director: Pankaj Cordoba MD Calcium [Mass/Vol] 9.1 mg/dL Normal 8.6-10.4 [facility] Comment on above: Performed By: #### B MPX, PT, CDP ####[facility] [address] [place] [address] [phone] Director: Pankaj Cordoba MD Chloride [Moles/Vol] 96 mmol/L Low 98-107 [facility] Comment on above: Performed By: #### B MPX, PT, CDP ####[facility] [address] [place], [place] [phone] Director: Pankaj Cordoba MD CO2 [Moles/Vol] 20 mmol/L Normal 20-31 [facility] Comment on above: Performed By: #### B MPX, PT, CDP ####[address] [phone] Director: Pankaj Cordoba MD Creatinine [Mass/Vol] 0.8 mg/dL Normal 0.7-1.2 [facility] Comment on above: Performed By: #### B MPX, PT, CDP ####[address] [phone] Director: Pankaj Cordoba MD GFR/1.73 sq M.predicted among non-blacks MDRD (S/P/Bld) [Vol rate/Area] 88 mL/min/{1.73_m2} Normal >60 [facility] Comment on above: Result Comment: These [...] By: #### B MPX, PT, CDP ####[facility] [address] [place] [address] Lab Director: Pankaj Cordoba MD Glucose [Mass/Vol] 117 mg/dL High 74-99 [facility] Comment on above: Performed By: #### B MPX, PT, CDP ####[facility] [address] [place] [address] lab Director: Pankaj Cordoba MD Potassium [Moles/Vol] 4.7 mmol/L Normal 3.7-5.3 [facility] Comment on above: Performed By: #### B MPX, PT, CDP ####[facility] [address] [place] [address] lab Director: Pankaj Cordoba MD Sodium [Moles/Vol] 129 mmol/L Low 136-145 [facility] Comment on above: Performed By: #### B MPX, PT, CDP ####[facility] [address] [place] [address] lab Director: Pankaj Cordoba MD Urea nitrogen [Mass/Vol] 16 mg/dL Normal 8-23 [facility] Comment on above: Performed By: #### B MPX, PT, CDP ####[facility] [address] [place] [address] lab Director: Pankaj Cordoba MD Basic Metabolic Panel w/ Ref maura to MGon 06-02-2025 Anion gap [Moles/Vol] 13 mmol/L 9 - 16 mmol/L [facility] Calcium [Mass/Vol] 9.1 mg/dL 8.6 - 10. 4 mg/dL [facility] Chloride [Moles/Vol] 96 mmol/L Low 98 - 10 7 mmol/L [facility] CO2 [Moles/Vol] 20 mmol/L 20 - 31 mmol/L [facility] Creatinine [Mass/Vol] 0.8 mg/dL 0.7 - 1.2 mg/dL [facility] Est, Glom Filt Rate 88 - PINF [facility] Comment on above: These results are [...] 117 mg/dL High 74 - 99 mg/dL [facility] Interpretation and review of laboratory results Abnormal [facility] Potassium [Moles/Vol] 4.7 mmol/L 3.7 - 5.3 mmol/L [facility] Sodium [Moles/Vol] 129 mmol/L Low 136 - 145 mmol/L [facility] Urea nitrogen [Mass/Vol] 16 mg/dL 8 - 23 mg/dL [facility] CBC with Auto Differentialon 06-02-2025 Basophils (Bld) [#/Vol] 0.06 10*3/uL [facility] Basophils/100 WBC (Bld) 1 % 0 - 2 % [facility] Eosinophils (Bld) [#/Vol] 0.08 10*3/uL [facility] Eosinophils/100 WBC (Bld) 1 % 1 - 4 % [facility] Erythrocyte distribution width (RBC) [Ratio] 13.2 % 11.8 - 14.4 % [facility] Hematocrit (Bld) [Volume fraction] 36.5 % Low 40.7 - 50.3 % [facility] Hemoglobin (Bld) [Mass/Vol] 12.3 g/dL Low 13.0 - 17.0 g/dL [facility] Immature granulocytes (Bld) [#/Vol] [facility] Immature granulocytes/100 WBC (Bld) 0 % 0 [facility] Interpretation and review of laboratory results Abnormal [facility] Lymphocytes/100 WBC (Bld) 25 % 24 - 43 % [facility] Lymphocytes/100 WBC (Bld) 1.93 % [facility] MCH (RBC) [Entitic mass] 30.7 pg 25.2 - 33.5 pg [facility] MCHC (RBC) [Mass/Vol] 33.7 g/dL 28.4 - 34.8 g/dL [facility] MCV (RBC) [Entitic vol] 91 fL 82.6 - 102.9 fL [facility] Monocytes/100 WBC (Bld) 11 % 3 - 12 % [facility] Monocytes/100 WBC (Bld) 0.84 % [facility] Neutrophils/100 WBC (Bld) 62 % 36 - 65 % [facility] Nucleated RBC/100 WBC (Bld) [Ratio] 0 % 0.0 per 100 WBC [facility] Platelet mean volume (Bld) [Entitic vol] 11.3 fL 8.1 - 13.5 fL [facility] Platelets (Bld) [#/Vol] 147 10*3/uL [facility] RBC (Bld) [#/Vol] 4.01 10*6/uL Low 4.21 - 5.7 7 m/uL [facility] Segmented neutrophils/100 WBC (Bld) 4.88 % [facility] WBC other (Bld) [#/Vol] 7.8 [facility] CBC with Diffon 06-02-2025 Abs. Basophil 0.06 k/uL Normal 0.00-0.20 [facility] Comment on above: Performed By: #### B MPX, PT, CDP ####[employer] [address] [place] [address] Lab Director: Pankaj Cordoba MD Abs.Imm.Granulocyte <0.03 Normal 0.00-0.30 [facility] Comment on above: Performed By: #### B MPX, PT, CDP ####[employer] [address] [place] [id number] Lab Director: Pankaj Cordoba MD Abs.Neutrophil (Seg) 4.88 k/uL Normal 1.50-8.10 [facility] Comment on above: Performed By: #### B MPX, PT, CDP ####[facility] [address] [place], [place] [phone] Director: Pankaj Cordoba MD Basophils/100 WBC (Bld) 1 % Normal 0-2 [facility] Comment on above: Performed By: #### B MPX, PT, CDP ####[facility] [address] [place] [address] [phone] Director: Pankaj Cordoba MD Eosinophils (Bld) [#/Vol] 0.08 10*3/uL Normal 0.00-0.44 [facility] Comment on above: Performed By: #### B MPX, PT, CDP ####[address] [address])[phone] Director: Pankaj Cordoba MD Eosinophils/100 WBC (Bld) 1 % Normal 1-4 [facility] Comment on above: Performed By: #### B MPX, PT, CDP ####[address] [address])[phone] Director: Pankaj Cordoba MD Erythrocyte distribution width (RBC) [Ratio] 13.2 % Normal 11.8-14.4 [facility] Comment on above: Performed By: #### B MPX, PT, CDP ####[facility] [address] [place] [phone])[phone] Director: Pankaj Cordoba MD Hematocrit (Bld) [Volume fraction] 36.5 % Low 40.7-50.3 [facility] Comment on above: Performed By: #### B MPX, PT, CDP ####[facility] [address] [place] [phone])[phone] Director: Pankaj Cordoba MD Hemoglobin (Bld) [Mass/Vol] 12.3 g/dL Low 13.0-17.0 [facility] Comment on above: Performed By: #### B MPX, PT, CDP ####[facility] [address] [place] [address] Lab Director: Pankaj Cordoba MD Immature granulocytes/100 WBC (Bld) 0 % Normal 0 [facility] Comment on above: Performed By: #### B MPX, PT, CDP ####[facility] [address] [place] [address] Lab Director: Pankaj Cordoba MD Lymphocytes (Bld) [#/Vol] 1.93 10*3/uL Normal 1.10-3.70 [facility] Comment on above: Performed By: #### B MPX, PT, CDP ####[facility] [address] [place], [place] [address])[phone] Director: Pankaj Cordoba MD Lymphocytes/100 WBC (Bld) 25 % Normal 24-43 [facility] Comment on above: Performed By: #### B MPX, PT, CDP ####[facility] [address] [place], [place] [phone] Director: Pankaj Cordoba MD MCH (RBC) [Entitic mass] 30.7 pg Normal 25.2-33.5 [facility] Comment on above: Performed By: #### B MPX, PT, CDP ####[facility] [address] [place] [address] Lab Director: Pankaj Cordoba MD MCHC (RBC) [Mass/Vol] 33.7 g/dL Normal 28.4-34.8 [facility] Comment on above: Performed By: #### B MPX, PT, CDP ####[facility] [address] [place] [address] Lab Director: Pankaj Cordoba MD MCV (RBC) [Entitic vol] 91.0 fL Normal 82.6-102.9 [facility] Comment on above: Performed By: #### B MPX, PT, CDP ####[facility] [address] [place] [address] Lab Director: Pankaj Cordoba MD Monocytes (Bld) [#/Vol] 0.84 10*3/uL Normal 0.10-1.20 [facility] Comment on above: Performed By: #### B MPX, PT, CDP ####[facility] [address] [place], [place] [phone] Director: Pankaj Cordoba MD Monocytes/100 WBC (Bld) 11 % Normal 3-12 [facility] [facility] Comment on above: Performed By: #### B MPX, PT, CDP ####[facility] [address] [place], [place] [phone] Director: Pankaj Cordoba MD Neutrophil (Seg) 62 % Normal 36-[address] [facility] Comment on above: Performed By: #### B MPX, PT, CDP ####[facility] [address] [place] [address])[phone] Director: Pankaj Cordoba MD NRBC Automated 0.0 per 100 WBC Normal 0.0 [facility] Comment on above: Performed By: #### B MPX, PT, CDP ####[facility] [address] [place], [place] [id number])[phone] Director: Pankaj Cordoba MD Platelet mean volume (Bld) [Entitic vol] 11.3 fL Normal 8.1-13.5 [facility] Comment on above: Performed By: #### B MPX, PT, CDP ####[facility] [address] [place], [place] [id number])[phone] Director: Pankaj Cordoba MD Platelets (Bld) [#/Vol] 147 10*3/uL Normal 138-453 [facility] Comment on above: Performed By: #### B MPX, PT, CDP ####[facility] [address] [place], [place] [phone] Director: Pankaj Cordoba MD RBC (Bld) [#/Vol] 4.01 10*6/uL Low 4.21-5.77 [facility] Comment on above: Performed By: #### B MPX, PT, CDP ####[email or web address] [address] [place], [place] [id number] lab Director: Pankaj Cordoba MD WBC (Bld) [#/Vol] 7.8 10*3/uL Normal 3.5-11.3 [facility] Comment on above: Performed By: #### B MPX, PT, CDP ####[email or web address] [address]bfx34[address] [place] [address] lab Director: Pankaj Cordoba MD Glucose,Whole Bloodon 2024 Glucose [Mass/Vol] 127 mg/dL High 75-110 [facility] Glucose [Mass/Vol] 109 mg/dL Normal 75-110 [facility] Glucose [Mass/Vol] 110 mg/dL Normal 75-110 [facility] POC Glucose Fingerstickon Glucose [Mass/Vol] 127 mg/dL High 75 - 110 mg/dL [facility] Interpretation and review of laboratory results Abnormal [facility] Glucose [Mass/Vol] 109 mg/dL 75 - 110 mg/dL [facility] Glucose [Mass/Vol] 110 mg/dL 75 - 110 mg/dL [facility] PTon 06-02-2025 INR Coag (PPP) [Relative time] 1.9 {INR} Normal [facility] Comment on above: Result Comment: Therapeutic Range: Moderate Anticoagulant Intensity: INR = 2.0-3.0 High Anticoagulant Intensity: INR = 2.5-3.5 Performed By: #### B MPX, PT, CDP ####[email or web address] [address] [place], [place] [id number] lab Director: Pankaj Cordoba MD PT Coag (PPP) [Time] 22.2 s High 11.7-14.9 [facility] Comment on above: Performed By: #### B MPX, PT, CDP ####[facility] [address] [place] [id number] lab Director: Pankaj Cordoba MD Protime-INRon 06-02-2025 INR Coag (PPP) [Relative time] 1.9 {INR} [facility] Comment on above: Therapeutic Range: Moderate Anticoagulant Intensity: INR = 2.0-3.0 High Anticoagulant Intensity: INR = 2.5-3.5 Interpretation and review of laboratory results Abnormal [facility] PT Coag (PPP) [Time] 22.2 s High [facility] CHEMISTRYOrdered By: Christine Stevens on 05-20-2025 Albumin [...] (Bld) [Mass fraction] 5.6 % Normal <=5.9% [facility] ChemAutoSS [id number] 05-20-2025 HbA1c (Bld) [Mass fraction] 5.6 % Normal <=5.9 [facility] Comment on above: Performed By: #### 7 [id number] #### [facility] Laboratory [address] [place] [address] Lipid Panelon 05-20-2025 Cholesterol [Mass/Vol] 150 mg/dL Normal 120-200 [facility] Comment on above: Performed By: #### 2 [id number] #### [facility] [address] [place] [address] Cholesterol in HDL [Mass/Vol] 57 mg/dL Invalid Interpretation Code [facility] Comment on above: Result Comment: '>= 60 LOW RISK' '<= 40 HIGH RISK' Performed By: #### 2 [id number] #### [facility] [address] [place] [address] Cholesterol in LDL [Mass/Vol] 77 mg/dL Normal <=129 [facility] Comment on above: Performed By: #### 2 [id number] #### [facility] [address] [place] [address] Cholesterol in VLDL [Mass/Vol] 11 mg/dL Normal 7-40 [facility] Comment on above: Performed By: #### 2 [id number] #### [facility] [address] [place] [address] Triglyceride [Mass/Vol] 53 mg/dL Normal <=149 [facility] Comment on above: Performed By: #### 2 [id number] #### [facility] [address] [place] [address] U MA/Cr Ratioon 05-20-2025 Microalb/Cr Ratio NOT CALCULATED Invalid Interpretation Code .0-30.0 [facility] Comment on above: Result Comment: 30-3 00 mg/g Cr indicates an increased risk for diabetic nephropathy. >300 mg/g Cr is consistent with clinical nephropathy. Performed By: #### 1 [id number] #### [facility] [address] [place] [address] U Creatinine 62.9 mg/dL Invalid Interpretation Code [facility] Comment on above: Performed By: #### 1 [id number] #### [facility] [address] [place] [address] U Microalb <0.7 Normal 0.0-1.9 [facility] Comment on above: Performed By: #### 1 [id number] #### [facility] [address] [place] [address] Ambulatory Visit Summaryon 0 05-09-2025 Ambulatory Visit [...] Appointments Tuesday 8:20 AM EDT With: Where: [address] [place] [address]- Tuesday 10:40 AM EDT With: YANIQUE MCNEILL CNP Where: [address] [place] [address]- Tuesday2025 8:00 AM EDT With: Where: [address] [place] [address]- You Need to Complete the Following HgbA1c, [...] By Mouth Every day Pickup at [facility] Unchanged Turmeric (Turmeric 500 mg oral capsule) 1 Capsules By Mouth Every day as needed for Prophylaxis Unchanged ubiquinone (CoQ10) See instructions Unchanged warfarin (warfarin 5 mg Tab) 1 Tablets By Mouth Every day Pharmacy Information [facility]: [address] [facility] [place] Cristobal [phone] Allergies No Known Medication Allergies Problems Ongoing [...] in a (more content not included)... Normal [facility] Family Medicine Office/Clini c Noteon [...] of clutter to prevent tripping and/or falling. [place] Advance Directives reviewed, at home. Encouraged to [...] patient requests, he will have completed at [facility] prior to next PCP visit. Colonoscopy screenings [...] Voices understandin (more content not included)... Normal [facility] Comment on above: Result Comment: [...] Follow-Up Appointments 2024 8:00 AM EDT Where: [place] [id number] Medications What How Much When Instructions Unchanged [...] for choosing us for your care. Normal [facility] BMPon 02-05-2025 Anion gap [Moles/Vol] 8 mmol/L Normal 6-16 [facility] Comment on above: Performed By: #### 2 [id number] #### [facility] [address] [place] [address] Calcium [Mass/Vol] 8.8 mg/dL Low 8.9-11.1 [facility] Comment on above: Performed By: #### 2 [id number] #### [facility] [address] [place] [address] Chloride [Moles/Vol] 99 mmol/L Low 101-111 [facility] Comment on above: Performed By: #### 2 [id number] #### [facility] [address] [place] [address] CO2 [Moles/Vol] 28 mmol/L Normal 21-31 [facility] Comment on above: Performed By: #### 2 [id number] #### [facility] [address] [place] [address] Creatinine [Mass/Vol] 1.0 mg/dL Normal 0.5-1.3 [facility] Comment on above: Performed By: #### 2 [id number] #### [facility] [address] [place] [address] Glucose [Mass/Vol] 104 mg/dL Normal 55-199 [facility] Comment on above: Performed By: #### 2 [id number] #### [facility] [address] [place] [address] Potassium [Moles/Vol] 4.2 mmol/L Normal 3.5-5.3 [facility] Comment on above: Performed By: #### 2 [id number] #### [facility] [address] [place] [address] Sodium [Moles/Vol] 131 mmol/L Low 135-145 [facility] Comment on above: Performed By: #### 2 [id number] #### [facility] [address] [place] [address] Urea nitrogen [Mass/Vol] 13 mg/dL Normal 5-21 [facility] Comment on above: Performed By: #### 2 [id number] #### [facility] [address] [place] [address] Urea nitrogen/Creatinine [Mass ratio] 13 No Units Normal 10-20 [facility] Comment on above: Performed By: #### 2 [id number] #### [facility] [address] [place] [address] CHEMISTRYOrdered By: SYSTEM SYSTEM on 02-05-2025 Anion [...] reports as effective. Ongoing follow-up with a architectural inspector is planned for later in February. The [...] confirmation of an upcoming appointment with a architectural inspector later in February to further assess their [...] mcg(0.025 mg) (more content not included)... Normal [facility] Comment on above: Result Comment: Elec tronically Signed By: Adam COHN, Edwin Lopez.br\Date and Time Signed: 02/05/25 13:47 EDT eGFRon 02-05-2025 eGFR 75 mL/min/1.73 m2 Normal >=59 [facility] Comment on above: Performed By: #### 1 [id number] #### [facility] [address] [place] [address] Ambulatory Visit Summaryon 0 01-24-2025 Ambulatory Visit [...] PM EDT With: Edwin Garcia MD Where: [address] [address]- 2024 8:00 AM EDT With: Where: [address] [id number]- Medications What How Much When Instructions Changed sodium chloride (Sodium Chloride 1 g oral tablet) See instructions 1 gram orally BID Pickup at [facility] Unchanged atenolol (atenolol 25 mg Tab) [...] if questions or concerns Pharmacy Information [facility]: [address] [facility] [place] [phone] Allergies No Known Medication Allergies Problems Ongoing [...] in adult (more content not included)... Normal [facility] BMPon 01-24-2025 Anion gap [Moles/Vol] 9 mmol/L Normal 6-16 [facility] Comment on above: Performed By: #### 2 [id number] #### [facility] [address] [place] [address] Calcium [Mass/Vol] 8.8 mg/dL Low 8.9-11.1 [facility] Comment on above: Performed By: #### 2 [id number] #### [facility] [address] [place] [address] Chloride [Moles/Vol] 98 mmol/L Low 101-111 [facility] Comment on above: Performed By: #### 2 [id number] #### [facility] [address] [place] [address] CO2 [Moles/Vol] 27 mmol/L Normal 21-31 [facility] Comment on above: Performed By: #### 2 [id number] #### [facility] [address] [place] [address] Creatinine [Mass/Vol] 1.0 mg/dL Normal 0.5-1.3 [facility] Comment on above: Performed By: #### 2 [id number] #### [facility] [address] [place] [address] Glucose [Mass/Vol] 114 mg/dL Normal 55-199 [facility] Comment on above: Performed By: #### 2 [id number] #### [facility] [address] [place] [address] Potassium [Moles/Vol] 4.5 mmol/L Normal 3.5-5.3 [facility] Comment on above: Performed By: #### 2 [id number] #### [facility] [address] [place] [address] Sodium [Moles/Vol] 129 mmol/L Low 135-145 [facility] Comment on above: Performed By: #### 2 [id number] #### [facility] [address] [place] [address] Urea nitrogen [Mass/Vol] 12 mg/dL Normal 5-21 [facility] Comment on above: Performed By: #### 2 [id number] #### [facility] [address] [place] [address] Urea nitrogen/Creatinine [Mass ratio] 12 No Units Normal 10-20 [facility] Comment on above: Performed By: #### 2 [id number] #### [facility] [address] [place] [address] CHEMISTRYOrdered By: SYSTEM SYSTEM on 01-24-2025 Anion [...] wear the damaged aids, requiring a future net developer visit to resolve this issue. Moreover, the patient is under management for hypothyroidism, consistently taking his prescribed thyroid medication as directed. He denies experiencing notable symptoms of hypothyroidism, such as coldness or heightened fatigue. His reported increased daytime sleep appears to be associated more with lifestyle factors than with hypothyroidism. - Monitoring and follow-up for hyponatremia through scheduled nephrology appointment. - Anticipated net developer visit for hearing aid assessment and repair [...] The patient will follow up with a architectural inspector for further evaluation and management of hyponatremia. We will adjust the sodium supplementation based on the upcoming lab results. Ordered: Basic Metabolic Panel Lab Specimen Collect [address] TSH With T4fr Reflex 5. 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 An appointment with an appropriate net developer has been planned to assess and replace [...] ensure therap (more content not included)... Normal [facility] Comment on above: Result Comment: Elec tronically Signed By: Adam COHN, Edwin Lopez.br\Date and Time Signed: 01/24/25 14:16 EDT TSH With T4fr Reflexon 01-24 TSH Qn 2.69 m[IU]/L Normal 0.34-5.60 [facility] Comment on above: Performed By: #### 1 [id number] #### [facility] [address] [place] [address] eGFRon 01-24-2025 eGFR 75 mL/min/1.73 m2 Normal >=59 [facility] Comment on above: Performed By: #### 1 [id number] #### [facility] [address] [place] [address] Population Healthon 01-15-20 [facility] Case Information Case Priority: None Programs: -- Referral Source: Promotional Representative Referral Reason: Care coordination Case Type: Transition [...] tcm note. Created By: Alec Rodrigez Normal [facility] BMPon 01-09-2025 Anion gap [Moles/Vol] 9 mmol/L Normal 6-16 [facility] Comment on above: Performed By: #### 2 [id number] #### [facility] [address] [place] [address] Calcium [Mass/Vol] 9.0 mg/dL Normal 8.9-11.1 [facility] Comment on above: Performed By: #### 2 [id number] #### [facility] [address] [place] [address] Chloride [Moles/Vol] 93 mmol/L Low 101-111 [facility] Comment on above: Performed By: #### 2 [id number] #### [facility] [address] [place] [address] CO2 [Moles/Vol] 27 mmol/L Normal 21-31 [facility] Comment on above: Performed By: #### 2 [id number] #### [facility] [address] [place] [address] Creatinine [Mass/Vol] 0.8 mg/dL Normal 0.5-1.3 [facility] Comment on above: Performed By: #### 2 [id number] #### [facility] [address] [place] [address] Glucose [Mass/Vol] 110 mg/dL Normal 55-199 [facility] Comment on above: Performed By: #### 2 [id number] #### [facility] [address] [place] [address] Potassium [Moles/Vol] 4.1 mmol/L Normal 3.5-5.3 [facility] Comment on above: Performed By: #### 2 190210 #### [facility] [address] [place] [address] Sodium [Moles/Vol] 125 mmol/L Low 135-145 [facility] Comment on above: Performed By: #### 2 [id number] #### [facility] [address] [place] [address] Urea nitrogen [Mass/Vol] 12 mg/dL Normal 5-21 [facility] Comment on above: Performed By: #### 2 [id number] #### [facility] [address] [place] [address] Urea nitrogen/Creatinine [Mass ratio] 15 No Units Normal 10-20 [facility] Comment on above: Performed By: #### 2 [id number] #### [facility] [address] [place] [address] CHEMISTRYOrdered By: SYSTEM SYSTEM on 01-09-2025 Anion [...] 01-09-2025 eGFR 88 mL/min/1.73 m2 Normal >=59 [facility] Comment on above: Performed By: #### 1 [id number] #### [facility] [address] [place] [address] [facility] 01-07-20 [facility] Case Information Case Priority: None Programs: -- Referral Source: Promotional Representative Referral Reason: Care coordination Case Type: Transition [...] changes as of 01-12, he'll be with [facility] Medicare. Patient has medication refill request, proposed [...] tcm note. Created By: Alec Rodrigez Normal [facility] BMPon 12-31-2024 Anion gap [Moles/Vol] 10 mmol/L Normal 6-16 [facility] Comment on above: Performed By: #### 2 [id number] #### [facility] [address] [place] [address] Calcium [Mass/Vol] 9.3 mg/dL Normal 8.9-11.1 [facility] Comment on above: Performed By: #### 2 [id number] #### [facility] [address] [place] [address] Chloride [Moles/Vol] 95 mmol/L Low 101-111 [facility] Comment on above: Performed By: #### 2 [id number] #### [facility] [address] [place] [address] CO2 [Moles/Vol] 27 mmol/L Normal 21-31 [facility] Comment on above: Performed By: #### 2 585653 #### [facility] [address] [place] [address] Creatinine [Mass/Vol] 0.8 mg/dL Normal 0.5-1.3 [facility] Comment on above: Performed By: #### 2 [id number] #### [facility] [address] [place] [address] Glucose [Mass/Vol] 90 mg/dL Normal 55-199 [facility] Comment on above: Performed By: #### 2 348395 #### [facility] [address] [place] [address] Potassium [Moles/Vol] 4.3 mmol/L Normal 3.5-5.3 [facility] Comment on above: Performed By: #### 2 [id number] #### [facility] [address] [place] [address] Sodium [Moles/Vol] 128 mmol/L Low 135-145 [facility] Comment on above: Performed By: #### 2 [id number] #### [facility] [address] [place] [address] Urea nitrogen [Mass/Vol] 13 mg/dL Normal 5-21 [facility] Comment on above: Performed By: #### 2 [id number] #### [facility] [address] [place] [address] Urea nitrogen/Creatinine [Mass ratio] 16 No Units Normal 10-20 [facility] Comment on above: Performed By: #### 2 [id number] #### [facility] [address] [place] [address] CHEMISTRYOrdered By: SYSTEM SYSTEM on 12-31-2024 Anion [...] 12-31-2024 eGFR 88 mL/min/1.73 m2 Normal >=59 [facility] Comment on above: Performed By: #### 1 [id number] #### [facility] [address] [place] [address] Family Medicine Office/Clini c Noteon 12-24-2024 Family [...] changes. We (more content not included)... Normal [facility] Comment on above: Result Comment: Elec tronically Signed By: Edwin Garcia MD\.br\Date and Time Signed: 12/24/24 13:31 [facility] 12-24-19 [facility] Case Information Case Priority: None Programs: -- Referral Source: Promotional Representative Referral Reason: Care coordination Case Type: Transition [...] Case discussion Contact Type: Patient Contact Name: CLIFFORDKassiDARIEL Notes: TCM#2- see note. Created By: Alec Rodrigez Date: December 17, 2024 Method: Phone call Type: Outbound Duration (min): 16 Outcome: Case discussion Contact Type: Patient Contact Name: DARIEL ZABALA Notes: TCM#1- See tcm note. Created By: Alec Rodrigez Normal [facility] BMPon 12-18-2024 Anion gap [Moles/Vol] 10 mmol/L Normal 6-16 [facility] Comment on above: Performed By: #### 2 [id number] #### [facility] [address] [place] [address] Calcium [Mass/Vol] 9.1 mg/dL Normal 8.9-11.1 [facility] Comment on above: Performed By: #### 2 [id number] #### [facility] [address] [place] [address] Chloride [Moles/Vol] 98 mmol/L Low 101-111 [facility] Comment on above: Performed By: #### 2 [id number] #### [facility] [address] [place] [address] CO2 [Moles/Vol] 27 mmol/L Normal 21-31 [facility] Comment on above: Performed By: #### 2 [id number] #### [facility] [address] [place] [address] Creatinine [Mass/Vol] 0.9 mg/dL Normal 0.5-1.3 [facility] Comment on above: Performed By: #### 2 [id number] #### [facility] [address] [place] [address] Glucose [Mass/Vol] 113 mg/dL Normal 55-199 [facility] Comment on above: Performed By: #### 2 [id number] #### [facility] [address] [place] [address] Potassium [Moles/Vol] 3.9 mmol/L Normal 3.5-5.3 [facility] Comment on above: Performed By: #### 2 [id number] #### [facility] [address] [place] [address] Sodium [Moles/Vol] 131 mmol/L Low 135-145 [facility] Comment on above: Performed By: #### 2 [id number] #### [facility] [address] [place] [address] Urea nitrogen [Mass/Vol] 10 mg/dL Normal 5-21 [facility] Comment on above: Performed By: #### 2 [id number] #### [facility] [address] [place] [address] Urea nitrogen/Creatinine [Mass ratio] 11 No Units Normal 10-20 [facility] Comment on above: Performed By: #### 2 [id number] #### [facility] [address] [place] [address] eGFRon 12-18-2024 eGFR 85 mL/min/1.73 m2 Normal >=59 [facility] Comment on above: Performed By: #### 1 [id number] #### [facility] [address] [place] [address] Family Medicine Office/Clini c Noteon 12-17-2024 Family Medicine Office/Clinic Note Family Medicine Office/Clinic Note Chief Complaint ER follow up Confusion and persistent fatigue post-discharge with a concern for recurrent hyponatremia HPI Staff Pt presents today for ER follow up. Hospital: [facility] Visit date:12/14/24 Symptoms the patient presented [...] up with Nephrology. Ordered: Basic Metabolic Panel [facility] External Ambulatory Referral 2. 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 Ordered: Basic Metabolic Panel [facility] External Ambulatory Referral 3. Longstanding persistent atrial fibrillation (I48.11: Longstanding persistent atrial fibrillation) Maintain current management regime, evaluate rhythm control, and anticoagulation status during follow-up visits. Ordered: Basic Metabolic Panel [facility] External Ambulatory Referral 4. Hyponatremia (E87.1: Hypo-osmolality and hyponatremia) Continue monitoring sodium levels closely, with recommended nephrology review for stabilization strategy. No significant lifestyle factors contributing to sodium imbalance noted. Ordered: Basic Metabolic Panel [facility] External Ambulatory Referral 5. Hypothyroid (E03.9: Hypothyroidism, unspecified) Monitor thyroid levels to ensure therapeutic levels are maintained, adjust medications if indicated by lab abnormalities. Ordered: Basic Metabolic Panel [facility] External Ambulatory Referral 6. Nonsmoker (Z78.9: Other specified health status) Please continue to not smoke. Ordered: Basic Metabolic Panel Orders: fluticasone nasal, See Instructions, 48 mL, Refill(s) 1, USE 1 SPRAY IN EACH NOSTRIL TWICE A DAY, [id number], 178, cm, 08/28/24 14:50:00 EDT, Height/Length Dosing, 82.2, kg, 08/28/24 14:50:00 EDT, Weight Dosing sodium chloride, See Instructions, 1 gram orally daily, # 90 tab(s), Refills(s) 0, Pharmacy: [facility], 178.6, cm, 12/17/24 15:05:00 EST, Height/Length Dosing, 78.5, kg, 12/17/24 15: (more content not included)... Normal [facility] Comment on above: Result Comment: Elec tronically Signed By: Adam COHN, Edwin Lopez.br\Date and Time Signed: 12/17/24 15:29 [facility] 12-17-19 [facility] Case Information Case Priority: None Programs: -- Referral Source: Promotional Representative Referral Reason: Care coordination Case Type: Transition [...] Daily, 1 refills fluticasone Nasal 0.05 mg/inh [place], See Instructions, Self Directed gabapentin 300 mg [...] Care Plan Progress Note Admit Date: 12/14/24 [facility] Date of Discharge: 12/15/24 Follow-up appointment [...] cold wea (more content not included)... Normal [facility] Main OR Intraoperative Recor don 11-20-2024 Main OR Intraoperative Record Main OR Intraoperative Record IntraOp Document Type FT Summary Primary Physician: Axel Hernández DO Finalized Date/Time: 11/20/24 07:56:52 Pt. Name: CLIFFORDKassiDARIEL/Sex: 1940 Male Med Rec #: [id number] Physician: Axel Hernández DO Financial #: [id number] Pt. Type: A Room/Bed: [facility] [...] Sanchez CRNA, DO, Michael T Boyer CST, James W Role Performed JULIETA Surgeon - Primary SALES PROJECT COORDINATOR/SA Time In 11/19/24 12:10:00 11/19/24 12:23:00 11/19/24 12:10:00 Time Out 11/19/24 12:37:00 11/19/24 12:35:00 11/19/24 12:37:00 Procedure CARPAL TUNNEL CARPAL TUNNEL CARPAL TUNNEL RELEASE(Left) RELEASE(Left) RELEASE(Left) Comments DR LOU SUPERVISING Last Modified By: Ambrocio Borges Terry T Sweene, Terry T 11/19/24 12:45:19 11/19/24 12:53:03 11/19/24 12:45:19 Entry 4 Entry 5 Case Attendee Ambrocio Borges Laura C Role Performed Route Specialist - Primary Scrub - Primary Time In [...] Time Out Ethan Sanchez CRNA, Given Participants Hernández DO, Axel Smalls, Giana SALES PROJECT COORDINATOR, Chau W, Lauren Grant, Ambrocio Borges Time Out Complete [...] Procedure Yes Primary Surgeon Axel Hernández DO 11/19/24 12:26:00 Stop 11/19/24 12:32:00 Anesthesia Type [...] and tissue Entry 1 Skin Integrity Intact, [place], Warm, & Skin Abnormality No Dry Outcomes [...] Hand Ta (more content not included)... Normal [facility] Operative Reporton Operative Report Operative [...] PATIENT CONDITION: Satisfactory Deanna Weller Dictated: 11/19/2024 [id number] Transcribed: 11/19/2024 cc:Finn Medina [facility] Comment on above: Result Comment: Elec tronically Signed By: Axel Hernández DO\.br\Date and Time Signed: 11/20/24 16:36 EST BMPon 11-19-2024 Anion gap [Moles/Vol] 10 mmol/L Normal 6-16 [facility] Comment on above: Order Comment: To be drawn day of surgery. Performed By: #### 2 [id number] #### [facility] [address] [place] [address] Calcium [Mass/Vol] 9.2 mg/dL Normal 8.9-11.1 [facility] Comment on above: Order Comment: To be drawn day of surgery. Performed By: #### 2 [id number] #### [facility] [address] [place] [address] Chloride [Moles/Vol] 98 mmol/L Low 101-111 [facility] Comment on above: Order Comment: To be drawn day of surgery. Performed By: #### 2 [id number] #### [facility] [address] [place] [address] CO2 [Moles/Vol] 26 mmol/L Normal 21-31 [facility] Comment on above: Order Comment: To be drawn day of surgery. Performed By: #### 2 [id number] #### [facility] [address] [place] [address] Creatinine [Mass/Vol] 0.9 mg/dL Normal 0.5-1.3 [facility] Comment on above: Order Comment: To be drawn day of surgery. Performed By: #### 2 [id number] #### [facility] [address] [place] [address] Glucose [Mass/Vol] 77 mg/dL Normal 55-199 [facility] Comment on above: Order Comment: To be drawn day of surgery. Performed By: #### 2 [id number] #### [facility] [address] [place] [address] Potassium [Moles/Vol] 4.2 mmol/L Normal 3.5-5.3 [facility] Comment on above: Order Comment: To be drawn day of surgery. Performed By: #### 2 [id number] #### [facility] [address] [place] [address] Sodium [Moles/Vol] 130 mmol/L Low 135-145 [facility] Comment on above: Order Comment: To be drawn day of surgery. Performed By: #### 2 [id number] #### [facility] [address] [place] [address] Urea nitrogen [Mass/Vol] 8 mg/dL Normal 5-21 [facility] Comment on above: Order Comment: To be drawn day of surgery. Performed By: #### 2 [id number] #### [facility] [address] [place] [address] Urea nitrogen/Creatinine [Mass ratio] 9 No Units Low 10-20 [facility] Comment on above: Order Comment: To be drawn day of surgery. Performed By: #### 2 [id number] #### [facility] [address] [place] [address] CHEMISTRYOrdered By: Lab ROP User on 11-19-2024 Glucose [Mass/Vol] 78 mg/dL Normal 55 - 99 mg/dL [facility] POC Subsection Comment on above: Result Comment: Hilary danna Meter POC Username MAYA SOTELO Invalid Interpretation Code [facility] POC Subsection Sodium [Moles/Vol] [id number] mmol/L Invalid Interpretation Code [facility] POC Subsection Sodium [Moles/Vol] [id number] mmol/L Invalid Interpretation Code [facility] POC Subsection CHEMISTRYOrdered By: SYSTEM SYSTEM on [...] 38.5 s High 25.1 - 36.5 second(s) [facility] Auto Coag Comment on above: Interpretive Data: [...] the same coagulation reagent and instrumentation as [facility]. Currently there are no coagulation studies available worldwide for children to 14 days, and no normal ranges. Heparin therapeutic range (represented by Anti-Factor Xa activity of 0.2 - 0.4 U/mL) corresponds to PTT of 56.6 - 109.0 sec. INR Coag (PPP) [Relative time] 1.11 {INR} Invalid Interpretation Code [facility] Auto Coag Comment on above: Interpretive Data: I NR results are specifically intended to assess patients stabilized on long-term Anticoagulation therapy suggested INR s Less Intensive Anticoagulation 2.0 3.0 Conventional Range 3.0 4.5 PT Coag (PPP) [Time] 12.5 s Normal 9.4 - 1 2.5 second(s) [facility] Auto Coag Comment on above: Interpretive Data: [...] the same coagulation reagent and instrumentation as [facility]. Currently there are no coagulation studies available worldwide for children to 14 days, and no normal ranges. Capillary Glucose POCon Glucose [Mass/Vol] 78 mg/dL Normal 55-99 [facility] Comment on above: Result Comment: Hilary danna Meter Performed By: #### 2 [id number] #### [facility] [address] [place] [address] Discharge Instructionson Discharge Instructions Discharge Instructions CLIFFORDDARIEL Solitario :1940 Visit Date:11/19/2024 Inpatient Discharge Instructions Your Care Team Admitting Physician Axel Garcia DO Referring Physician - Axel Hernández DO [...] Clinic 2024 8:00 AM EDT With: Where: [address] [address]- New Follow Up Appointments after Discharge Follow Up with GORDO Weller When: 11/28/2024 01:00 PM EST Comments: Keep scheduled appointment. Call for any problems. Where: [address] [place] [id number]- [employer] (1) Medications What How Much When Instructions [...] fluticasone nasal (fluticasone Nasal 0.05 mg/ inh [place]) See instructions USE 1 SPRAY IN EACH [...] Allergies No Known Medication Allergies Education Materials [place], [place] [facility] CARPAL TUNNEL RELEASE INSTRUCTIONS [...] if the (more content not included)... Normal [facility] Comment on above: Result Comment: Elec tronically Signed By: Dirk KHAN, Maya Vanegas\.br\Date and Time Signed: 11/19/24 13:12 EST [facility] CAPILLARY GLUCOSE POCon 11-19-2024 Glucose [Mass/Vol] 78 mg/dL 55 - 99 mg/dL [facility] Comment on above: Cleaned Meter Original Ordering Provider: DO Aexl Hernández [facility] Main OR PACU I Recordon Main OR PACU I Record Main OR PACU I Record PACU Phase I Document Type FT Summary Primary Physician: Axel Heránndez DO Finalized Date/Time: 11/19/24 13:24:52 Pt. Name: DARIEL ZABALA/Sex: 1940 Male Med Rec #: [id number] Physician: Axel Hernández DO Financial #: [id number] Pt. Type: A Room/Bed: Admit/Disch: 11/19/24 09:28:12 [...] 13:24 Vicki Sethi RN 11/19/24 13:24 Normal [facility] Main OR PACU II Recordon Main OR PACU II Record Main OR PACU II Record PACU Phase II Document Type FT Summary Primary Physician: Axel Hernández DO Finalized Date/Time: 11/19/24 14:27:02 Pt. Name: DARIEL ZABALA/Sex: 1940 Male Med Rec #: [id number] Physician: Axel Hernández DO Financial #: [id number] Pt. Type: A Room/Bed: [facility] [...] By: Maya Sotelo RN 11/19/24 14:27 Normal [facility] Main OR Preoperative Recordo n 11-19-2024 Main OR Preoperative Record Main OR Preoperative Record PreOp Document Type FT Summary Primary Physician: Axel Hernández DO Finalized Date/Time: 11/19/24 12:53:23 Pt. Name: DARIEL ZABALA/Sex: 1940 Male Med Rec #: [id number] Physician: Axel Hernández DO Financial #: [id number] Pt. Type: Room/Bed: [facility] Admit/Disch: [...] Borges 11/19/24 12:53 Ambrocio Borges 11/19/24 12:53 [facility] PT & PTTon 11-19-2024 aPTT Coag (PPP) [Time] 38.5 second(s) High 25.1-36.5 [facility] Comment on above: Result Comment: [...] the same coagulation reagent and instrumentation as [facility]. Currently there are no coagulation studies available worldwide for children to 14 days, and no normal ranges. Heparin therapeutic range (represented by Anti-Factor Xa activity of 0.2 - 0.4 U/mL) corresponds to PTT of 56.6 - 109.0 sec. Performed By: #### 1 [id number] #### [facility] [address] [place] [address] INR Coag (PPP) [Relative time] 1.11 {INR} Invalid Interpretation Code [facility] Comment on above: Result Comment: INR results are specifically intended to assess patients stabilized on long-term Anticoagulation therapy suggested INR???s ???Less Intensive Anticoagulation??? 2.0 ??? 3.0 Conventional Range 3.0 ??? 4.5 Performed By: #### 1 [id number] #### [facility] [address] [place] [address] PT Coag (PPP) [Time] 12.5 second(s) Normal 9.4-12.5 [facility] Comment on above: Result Comment: [...] the same coagulation reagent and instrumentation as [facility]. Currently there are no coagulation studies available worldwide for children to 14 days, and no normal ranges. Performed By: #### 1 [id number] #### [facility] [address] [place] [address] eGFRon 11-19-2024 eGFR 85 mL/min/1.73 m2 Normal >=59 [facility] Comment on above: Performed By: #### 1 [id number] ####[facility] [id number] [place] [address] BMPon 11-12-2024 Anion gap [Moles/Vol] 7 mmol/L Normal 6-16 [facility] Comment on above: Performed By: #### 2 [id number] #### [facility] [address] [place] [address] Calcium [Mass/Vol] 8.8 mg/dL Low 8.9-11.1 [facility] Comment on above: Performed By: #### 2 [id number] #### [facility] [address] [place] [address] Chloride [Moles/Vol] 97 mmol/L Low 101-111 [facility] Comment on above: Performed By: #### 2 [id number] #### [facility] [address] [place] [address] CO2 [Moles/Vol] 28 mmol/L Normal 21-31 [facility] Comment on above: Performed By: #### 2 [id number] #### [facility] [address] [place] [address] Creatinine [Mass/Vol] 0.9 mg/dL Normal 0.5-1.3 [facility] Comment on above: Performed By: #### 2 [id number] #### [facility] [address] [place] [address] Glucose [Mass/Vol] 106 mg/dL Normal 55-199 [facility] Comment on above: Performed By: #### 2 [id number] #### [facility] [address] [place] [address] Potassium [Moles/Vol] 4.4 mmol/L Normal 3.5-5.3 [facility] Comment on above: Performed By: #### 2 [id number] #### [facility] [address] [place] [address] Sodium [Moles/Vol] 128 mmol/L Low 135-145 [facility] Comment on above: Performed By: #### 2 [id number] #### [facility] [address] [place] [address] Urea nitrogen [Mass/Vol] 12 mg/dL Normal 5-21 [facility] Comment on above: Performed By: #### 2 [id number] #### [facility] [address] [place] [address] Urea nitrogen/Creatinine [Mass ratio] 13 No Units Normal 10-20 [facility] Comment on above: Performed By: #### 2 [id number] #### [facility] [address] [place] [address] CHEMISTRYOrdered By: SYSTEM SYSTEM on 11-12-2024 Anion [...] (Bld) [Mass fraction] 5.4 % Normal <=5.9% [facility] ChemAutoSS [id number] 11-12-2024 HbA1c (Bld) [Mass fraction] 5.4 % Normal <=5.9 [facility] Comment on above: Performed By: #### 7 [id number] #### [facility] Laboratory [address] [place] [address] Inpatient Patient Summaryon 11-12-2024 Inpatient Patient Summary Inpatient Patient Summary [facility] [address] [place], [place] [address] [facility] Clinical Discharge Instructions PERSON INFORMATION Name: DARIEL ZABALA PHYSICIANS Admitting Physician: Axel Hernández DO Attending Physician: Axel Hernández DO PCP: Edwin Garcia MD Discharge Diagnosis: Carpal tunnel syndrome on left Comment: PATIENT EDUCATION INFORMATION Instructions: Edgar Gonzalez Carpal Tunnel Release Instructions (Custom) (CUSTOM) Medication Leaflets: Follow up: With: Address: When: Axel Hernández [address] [place] [address] [facility] (1) Comments: Keep scheduled appointment Type Location Start [facility] Surgical Services 11/19/2024 2:15 PM 11/19/2024 2:45 PM Confirmed Cardiology Follow Up (FT) [facility] 12/12/2024 10:15 AM 12/12/2024 10:30 AM Confirmed Medicare Wellness Subsequent [facility] FM Jackie 05/02/2025 8:00 AM 05/02/2025 9:00 [...] 1. fluticasone nasal (fluticasone Nasal 0.05 mg/inh [place]) USE 1 SPRAY IN EACH NOSTRIL TWICE [...] Tablets By Mouth every day. Comment: Normal [facility] Outpatient Surgery Discharge Instructionon 11-12-2024 Outpatient Surgery Discharge Instruction Outpatient Surgery Discharge Instruction [place] [id number] Patient Discharge Instructions PERSON INFORMATION Name: DARIEL [...] Follow up: With: Address: When: Axel Hernández [address] [place] [address] Business (1) Comments: Keep scheduled appointment Type Location Start [facility] Surgery FT [facility] Surgical Services 11/19/2024 2:15 PM 11/19/2024 2:45 PM Confirmed Cardiology Follow Up (FT) FT.Cardiology Clinic 12/12/2024 10:15 AM 12/12/2024 10:30 AM Confirmed Medicare Wellness Subsequent [facility] 05/02/2025 8:00 AM 05/02/2025 9:00 AM Confirmed [...] to serve you. Thank you for choosing [facility] HERE ARE THE MEDICATION CHANGES [...] 1. fluticasone nasal (fluticasone Nasal 0.05 mg/inh [place]) USE 1 SPRAY IN EACH NOSTRIL TWICE [...] Mouth every day. PATIENT EDUCATION INFORMATION Instructions: [place], [place] [facility] CARPAL TUNNEL RELEASE INSTRUCTIONS Post-Operative Week One You will be in a soft dressing from mid palm to forearm. Please remove dressing two days after surgery. At that point, clean daily with peroxide or betadine and place daily fresh bandaids. Cover for showers with waterproof bandaid, op site occlusive dressing (more content not included)... Normal [facility] TSH With T4fr Reflexon 11-12 TSH Qn 2.17 m[IU]/L Normal 0.34-5.60 [facility] Comment on above: Performed By: #### 1 [id number] #### [facility] [address] [place] [address] eGFRon 11-12-2024 eGFR 85 mL/min/1.73 m2 Normal >=59 [facility] Comment on above: Performed By: #### 1 [id number] #### [facility] [address] [place] [address] Ambulatory Visit Summaryon 1 01-02-2024 Ambulatory Visit Summary Ambulatory Visit Summary CLIFFORDDARIEL Solitario :1940 Visit Date:11/01/2024 Ambulatory Visit Instructions Your [...] Tab) fluticasone nasal (fluticasone Nasal 0.05 mg/inh [place]) gabapentin (gabapentin 300 mg Cap) glimepiride (glimepiride [...] Appointments Tuesday 9:20 AM EST With: Where: [address] [id number]- Tuesday 2:15 PM EST With: Where: [facility] Surgical Services Tuesday 10:15 AM EST With: Dixon Dubose PA-C Where: Cardiology Clinic 2024 8:00 AM EDT With: Where: [address] [id number]- Medications What How Much When Instructions Unchanged [...] fluticasone nasal (fluticasone Nasal 0.05 mg/ inh [place]) See instructions USE 1 SPRAY IN EACH [...] [facility]/Clini c Noteon 11-01-2024 [...] cardiovascular disease) (I25.10: Atherosclerotic heart disease of [place] coronary artery without angina pectoris) Denies CP. [...] Recent) 3074 (more content not included)... Normal [facility] Comment on above: Result Comment: Elec tronically Signed By: Adam COHN, Edwin Lopez.br\Date and Time Signed: 11/01/24 09:42 EST BMPon 10-30-2024 Anion gap [Moles/Vol] 11 mmol/L Normal 6-16 [facility] Comment on above: Performed By: #### 2 [id number] #### [facility] [address] [place] [address] Calcium [Mass/Vol] 9.0 mg/dL Normal 8.9-11.1 [facility] Comment on above: Performed By: #### 2 [id number] #### [facility] [address] [place] [address] Chloride [Moles/Vol] 96 mmol/L Low 101-111 [facility] Comment on above: Performed By: #### 2 [id number] #### [facility] [address] [place] [address] CO2 [Moles/Vol] 27 mmol/L Normal 21-31 [facility] Comment on above: Performed By: #### 2 [id number] #### [facility] [address] [place] [address] Creatinine [Mass/Vol] 0.9 mg/dL Normal 0.5-1.3 [facility] Comment on above: Performed By: #### 2 [id number] #### [facility] [address] [place] [address] Glucose [Mass/Vol] 87 mg/dL Normal 55-199 [facility] Comment on above: Performed By: #### 2 [id number] #### [facility] [address] [place] [address] Potassium [Moles/Vol] 4.7 mmol/L Normal 3.5-5.3 [facility] Comment on above: Performed By: #### 2 [id number] #### [facility] [address] [place] [address] Sodium [Moles/Vol] 129 mmol/L Low 135-145 [facility] Comment on above: Performed By: #### 2 [id number] #### [facility] [address] [place] [address] Urea nitrogen [Mass/Vol] 15 mg/dL Normal 5-21 [facility] Comment on above: Performed By: #### 2 [id number] #### [facility] [address] [place] [address] Urea nitrogen/Creatinine [Mass ratio] 17 No Units Normal 10-20 [facility] Comment on above: Performed By: #### 2 [id number] #### [facility] [address] [place] [address] CBC w/ Auto Diffon 4 Basophils/100 WBC (Bld) 0.9 % Normal 0.0-2.0 [facility] Comment on above: Performed By: #### 2 [id number] #### [facility] [address] [place] [address] Basophils/Leukocytes Auto (Bld) [Pure # fraction] 0.0 E9/L Normal 0.0-0.2 [facility] Comment on above: Performed By: #### 2 [id number] #### [facility] [address] [place] [address] Eosinophils (Bld) [#/Vol] 0.2 E9/L Normal 0.0-0.5 [facility] Comment on above: Performed By: #### 2 [id number] #### [facility] [address] [place] [address] Eosinophils/100 WBC (Bld) 3.6 % Normal 0.0-8.0 [facility] Comment on above: Performed By: #### 2 [id number] #### [facility] [address] [place] [address] Erythrocyte distribution width (RBC) [Ratio] 13.4 % Normal 10.9-14.2 [facility] Comment on above: Performed By: #### 2 [id number] #### [facility] [address] [place] [address] Hematocrit (Bld) [Volume fraction] 36.3 % Low 37.7-49.0 [facility] Comment on above: Performed By: #### 2 [id number] #### [facility] [address] [place] [address] Hemoglobin (Bld) [Mass/Vol] 12.8 g/dL Low 13.5-17.5 [facility] Comment on above: Performed By: #### 2 [id number] #### [facility] [address] [place] [address] Lymphocytes (Bld) [#/Vol] 1.5 E9/L Normal 1.0-4.0 [facility] Comment on above: Performed By: #### 2 [id number] #### [facility] [address] [place] [address] Lymphocytes/100 WBC (Bld) 30.1 % Normal 14.0-50.0 [facility] Comment on above: Performed By: #### 2 [id number] #### [facility] [address] [place] [address] MCH (RBC) [Entitic mass] 31.7 pg Normal 27.0-34.0 [facility] Comment on above: Performed By: #### 2 [id number] #### [facility] [address] [place] [address] MCHC (RBC) [Mass/Vol] 35.2 g/dL Normal 31.4-36.0 [facility] Comment on above: Performed By: #### 2 [id number] #### [facility] [address] [place] [address] MCV (RBC) [Entitic vol] 90.1 fL Normal 80.0-100.0 [facility] Comment on above: Performed By: #### 2 [id number] #### [facility] [address] [place] [address] Monocytes (Bld) [#/Vol] 0.4 E9/L Normal 0.2-1.0 [facility] Comment on above: Performed By: #### 2 [id number] #### [facility] [facility] [address] [place] [address] Neutrophils (Bld) [#/Vol] 2.9 E9/L Normal 2.0-7.5 [facility] Comment on above: Performed By: #### 2 [id number] #### [facility] [address] [place] [address] Neutrophils/100 WBC (Bld) 56.9 % Normal 36.0-75.0 [facility] Comment on above: Performed By: #### 2 [id number] #### [facility] [address] [place] [address] Platelet 175.0 E9/L Normal 150.0-500.0 [facility] Comment on above: Performed By: #### 2 [id number] #### [facility] [address] [place] [address] Platelet mean volume (Bld) [Entitic vol] 9.1 fL Normal 6.4-10.8 [facility] Comment on above: Performed By: #### 2 [id number] #### [facility] [address] [place] [address] RBC (Bld) [#/Vol] 4.0 E12/L Low 4.3-5.9 [facility] Comment on above: Performed By: #### 2 [id number] #### [facility] [address] [place] [address] WBC corrected for nucl RBC Auto (Bld) [#/Vol] 5.1 E9/L Normal 4.0-11.0 [facility] Comment on above: Performed By: #### 2 [id number] #### [facility] [address] [place] [address] CHEMISTRYOrdered By: SYSTEM SYSTEM on 10-30-2024 Anion [...] 10-30-2024 eGFR 85 mL/min/1.73 m2 Normal >=59 [facility] Comment on above: Performed By: #### 1 [id number] #### [facility] [address] [place] [address] Family Medicine Office/Clini c Noteon 09-10-2024 Family Medicine Office/Clinic Note Family Medicine Office/Clinic Note HPI Staff Dariel is an 84 year old male presenting to discuss getting meloxicam rxed for his arthritis Has had from previous and says he cannot be without it [...] # 90 tab(s), Refills(s) 0, Pharmacy: [facility], 178, cm, 09/10/24 13:01:00 EDT, [...] Daily, 1 refills fluticasone Nasal 0.05 mg/inh [place], See Instructions gabapentin 300 mg Cap, 300 [...] Diabetes mellitus (more content not included)... Normal [facility] Comment on above: Result Comment: Elec tronically Signed By: Adam COHN, Edwin Cole\.br\Date and Time Signed: 09/10/24 13:19 EDT General Surgery Office/Clini c Noteon 08-28-2024 General Surgery Office/Clinic Note General Surgery Office/Clinic Note Chief Complaint ref- hernia HPI Staff [employer] Dariel is an 84 y.o. male here [...] E&M of New Patient Low 30-44 Min 30506 2. ASCVD (arteriosclerotic cardiovascular disease) (I25.10: Atherosclerotic heart disease of [place] coronary artery without angina pectoris) The patient require surgery he will require cardiac clearance Ordered: E&M of New Patient Low 30-44 Min 01317 3. Longstanding persistent atrial fibrillation (I48.11: Longstanding persistent atrial fibrillation) Should patient require or opt for a robotic repair he will need to hold his anticoagulation for 5 days prior to the procedure Ordered: E&M of New Patient Low 30-44 Min 66903 Follow-up No qualifying data available Problem List/Past [...] Oral, Daily, 1 refills Flonase 0.05 mg/inh [place], 1 spray(s), Nasal, BID gabapentin 300 mg [...] mg Tab) fluticasone nasal (Flonase 0.05 mg/inh [place]) gabapentin (gabapentin 300 mg Cap) glimepiride (glimepiride [...] EST With: Adam COHN, Edwin Cole Where: [address] [id number]- Tuesday 1:00 PM EST With: Dixon Dubose PA-C [facility] 2024 8:00 AM EDT With: Where: [address] [address]- Medications What How Much When Why Instructions [...] Unchanged fluticasone nasal (Flonase 0.05 mg/ inh [place]) 1 Sprays Nasal Inhalation 2 times a [...] advised him his appt is 08/13/24 with [facility] at 12:30pm History of Present [...] day(s), # 21 tab(s), Refills(s) 0, Pharmacy: [facility]/pharmacy #[id number], 178, cm, 07/31/24 14:02:00 EDT, [...] Oral, Daily, 1 refills Flonase 0.05 mg/inh [place], 1 spray(s), Nasal, BID gabapentin 300 mg [...] 1 r (more content not included)... Normal [facility] Comment on above: Result Comment: [...] day(s), # 21 tab(s), Refills(s) 0, Pharmacy: [facility]/pharmacy #[id number], 178, cm, 07/31/24 14:02:00 EDT, Height/Length Dosing, 78.5, kg, 07/31/24 14:02:00 EDT, Weight Dosing tramadol, 50 mg = 1 tab(s), Oral, q4hr, PRN for pain, X 7 day(s), # 21 tab(s), Refills(s) 0, Pharmacy: [facility]/pharmacy #[id number], 178, cm, 07/31/24 14:02:00 EDT, [...] Oral, Daily, 1 refills Flonase 0.05 mg/inh [place], 1 spray(s), Nasal, BID gabapentin 300 mg [...] Adam COHN, Edwin Cole\.br\Date and Time Signed: 07/31/24 14:23 EDT Ambulatory [...] mg Tab) fluticasone nasal (Flonase 0.05 mg/inh [place]) gabapentin (gabapentin 300 mg Cap) glimepiride (glimepiride [...] PM EDT With: Edwin Garcia MD Where: [address] [id number]- 2023 9:15 AM EST With: Edwin Garcia MD Where: [address] [address]- Tuesday 1:00 PM EST With: Dixon Dubose PA-C Where[facility] 2024 8:00 AM EDT With: Where: [address] [address]- Medications What How Much When Instructions Unchanged [...] Unchanged fluticasone nasal (Flonase 0.05 mg/ inh [place]) 1 Sprays Nasal Inhalation 2 times a [...] choosing us for your care. Normal [facility] Family Medicine Office/Clini c Noteon 07-24-2024 Family Medicine Office/Clinic Note Family Medicine Office/Clinic Note HPI Staff Dariel is an 84 year old male presenting for ER follow up ER followup: Hospital: [facility] Visit date: 07/14/24 Symptoms the patient presented [...] patient was under the dosed. Patient stated [place] was helping him more. Patient denies any [...] - Will do Tizanadine - Will do [place] for pain - Follow up in 1 week. - Will send to pain Ordered: [facility] External Ambulatory Referral 2. Inguinal hernia of left side without obstruction or gangrene (K40.90: Unilateral inguinal hernia, without obstruction or gangrene, not specified as recurrent) - Pt cancelled his surgery. - NO pain at this time. - Encouraged follow up Ordered: [facility] External Ambulatory Referral 3. Nonsmoker (Z78.9: Other specified health status) - Please continue to not smoke Ordered: Body Mass Index (BMI) documented 3008F Current tobacco non-user 1036F Depression Screening Negative 3352F [facility] External Ambulatory Referral Most recent diastolic blood [...] q8hr, # 90 tab(s), Refills(s) 1, Pharmacy: [facility]/pharmacy #[id number], 178, cm, 07/24/24 14:57:00 EDT, [...] Oral, Daily, 1 refills Flonase 0.05 mg/inh [place], 1 spray(s), Nasal, BID gabapentin 300 mg Cap, 300 mg= 1 cap(s), Oral, Daily, 1 refills glimepiride 2 mg Tab, 2 mg= 1 tab(s), Oral, Daily, 1 refills Jantoven 5 mg oral tablet, 5 mg= 1 tab(s), Oral, Daily levothyroxine 25 mcg (0.025 mg) Tab, 25 mcg= 1 tab(s), Oral, Daily, 1 refills [place] 325 mg-5 mg oral tablet, 1 tab(s), [...] No. [place] (more content not included)... Normal [facility] Comment on above: Result Comment: [...] AM EST With: Edwin Garcia MD Where: [facility] [address]- Tuesday 1:00 PM EST With: Dixon Dubose PA-C Where: [facility] 2024 8:00 AM EDT With: Where: [address] [address]- Medications What How Much When Instructions Unchanged [...] 16 gram, Refill(s) 0, each nostril, [id number], 178, cm, 07/03/24 10:05:00 EDT, Height/Length Dosing, 80.8, kg, 07/03/24 10:05:00 EDT, Weight Dosing gabapentin, 300 mg = 1 cap(s), Oral, Daily, # 90 cap(s), Refills(s) 1, Pharmacy: [facility], 178, cm, 07/03/24 10:05:00 EDT, Height/Length Dosing, 80.8, kg, 07/03/24 10:05:00 EDT, Weight Dosing omeprazole, 40 mg = 1 cap(s), Oral, Daily, # 90 cap(s), Refills(s) 0, Pharmacy: [facility], 178.2, cm, 02/02/24 10:29:00 EDT, Height/Length Dosing, 84.1, kg, 02/02/24 10:29:00 EDT, Weight Dosing sildenafil, 100 mg = 1 tab(s), Oral, Daily, PRN for erectile dysfunction, 1 hour before sexual activity, # 5 tab(s), Refills(s) 0, Pharmacy: [facility], 178, cm, 07/03/24 10:05:00 EDT, Height/Length Dosing, 80.8, kg, 07/03/24 10:05:00 EDT,... 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 Normal [facility] Comment on above: Result Comment: [...] Basophils/100 WBC (Bld) 0.9 % Normal 0.0-2.0 [facility] Comment on above: Performed By: #### 2 [id number] #### [facility] [address] [place] [address] Basophils/Leukocytes Auto (Bld) [Pure # fraction] 0.0 E9/L Normal 0.0-0.2 [facility] Comment on above: Performed By: #### 2 [id number] #### [facility] [address] [place] [address] Eosinophils (Bld) [#/Vol] 0.1 E9/L Normal 0.0-0.5 [facility] Comment on above: Performed By: #### 2 142635 #### [facility] [address] [place] [address] Eosinophils/100 WBC (Bld) 2.4 % Normal 0.0-8.0 [facility] Comment on above: Performed By: #### 2 [id number] #### [facility] [address] [place] [address] Erythrocyte distribution width (RBC) [Ratio] 14.4 % High 10.9-14.2 [facility] Comment on above: Performed By: #### 2 478605 #### [facility] [address] [place] [address] Hematocrit (Bld) [Volume fraction] 42.2 % Normal 37.7-49.0 [facility] Comment on above: Performed By: #### 2 [id number] #### [facility] [address] [place] [address] Hemoglobin (Bld) [Mass/Vol] 14.0 g/dL Normal 13.5-17.5 [facility] Comment on above: Performed By: #### 2 [id number] #### [facility] [address] [place] [address] Lymphocytes (Bld) [#/Vol] 1.4 E9/L Normal 1.0-4.0 [facility] Comment on above: Performed By: #### 2 354462 #### [facility] [address] [place] [address] Lymphocytes/100 WBC (Bld) 34.0 % Normal 14.0-50.0 [facility] Comment on above: Performed By: #### 2 606275 #### [facility] [address] [place] [address] MCH (RBC) [Entitic mass] 30.8 pg Normal 27.0-34.0 [facility] Comment on above: Performed By: #### 2 [id number] #### [facility] [address] [place] [address] MCHC (RBC) [Mass/Vol] 33.1 g/dL Normal 31.4-36.0 [facility] Comment on above: Performed By: #### 2 792282 #### [facility] [address] [place] [address] MCV (RBC) [Entitic vol] 92.9 fL Normal 80.0-100.0 [facility] Comment on above: Performed By: #### 2 566239 #### [facility] [address] [place] [address] Monocytes (Bld) [#/Vol] 0.4 E9/L Normal 0.2-1.0 [facility] Comment on above: Performed By: #### 2 139925 #### [facility] [address] [place] [address] Neutrophils (Bld) [#/Vol] 2.2 E9/L Normal 2.0-7.5 [facility] Comment on above: Performed By: #### 2 526205 #### [facility] [address] [place] [address] Neutrophils/100 WBC (Bld) 53.4 % Normal 36.0-75.0 [facility] Comment on above: Performed By: #### 2 288944 #### [facility] [address] [place] [address] Platelet 166.0 E9/L Normal 150.0-500.0 [facility] Comment on above: Performed By: #### 2 229142 #### [facility] [address] [place] [address] Platelet mean volume (Bld) [Entitic vol] 9.8 fL Normal 6.4-10.8 [facility] Comment on above: Performed By: #### 2 061077 #### [facility] [address] [place] [address] RBC (Bld) [#/Vol] 4.5 E12/L Normal 4.3-5.9 [facility] Comment on above: Performed By: #### 2 [id number] #### [facility] [address] [place] [address] WBC corrected for nucl RBC Auto (Bld) [#/Vol] 4.2 E9/L Normal 4.0-11.0 [facility] Comment on above: Performed By: #### 2 [id number] #### [facility] [address] [place] [address] CHEMISTRYOrdered By: SYSTEM SYSTEM on 05-01-2024 Albumin [...] for this result was chemiluminescence using [employer] Hybrite[employer] PSA reagent. Protein [Mass/Vol] 7.1 [...] 05-01-2024 Albumin [Mass/Vol] 4.2 g/dL Normal 3.3-5.0 [facility] Comment on above: Performed By: #### 2 [id number] #### [facility] [address] [place] [address] Albumin/Globulin (S) [Mass conc ratio] 1.4 Normal 1.1-2.2 [facility] Comment on above: Performed By: #### 2 139130 #### [facility] [address] [place] [address] ALP [Catalytic activity/Vol] 83 Int._Unit/L Normal 21-98 [facility] Comment on above: Performed By: #### 2 [id number] #### [facility] [address] [place] [address] ALT No additional P-5'-P [Catalytic activity/Vol] 14 Int._Unit/L Normal 6-46 [facility] Comment on above: Performed By: #### 2 600112 #### [facility] [address] [place] [address] Anion gap [Moles/Vol] 10 mmol/L Normal 6-16 [facility] Comment on above: Performed By: #### 2 708212 #### [facility] [address] [place] [address] AST [Catalytic activity/Vol] 22 Int._Unit/L Normal 5-43 [facility] Comment on above: Performed By: #### 2 723062 #### [facility] [address] [place] [address] Bilirubin [Mass/Vol] 0.9 mg/dL Normal 0.0-1.1 [facility] [place] [facility] Comment on above: Performed By: #### 2 386197 #### [facility] [address] [place] [address] Calcium [Mass/Vol] 9.5 mg/dL Normal 8.9-11.1 [facility] Comment on above: Performed By: #### 2 930443 #### [facility] [address] [place] [address] Chloride [Moles/Vol] 103 mmol/L Normal 101-111 [facility] Comment on above: Performed By: #### 2 986207 #### [facility] [address] [place] [address] CO2 [Moles/Vol] 29 mmol/L Normal 21-31 [facility] Comment on above: Performed By: #### 2 761957 #### [facility] [address] [place] [address] Creatinine [Mass/Vol] 1.1 mg/dL Normal 0.5-1.3 [facility] Comment on above: Performed By: #### 2 535435 #### [facility] [address] [facility] [place] [facility] [place] [address] Globulin (S) [Mass/Vol] 2.9 g/dL Normal 1.4-4.0 [facility] Comment on above: Performed By: #### 2 426075 #### [facility] [address] [place] [address] Glucose [Mass/Vol] 104 mg/dL Normal 55-199 [facility] Comment on above: Performed By: #### 2 203163 #### [facility] [address] [place] [address] Potassium [Moles/Vol] 5.2 mmol/L Normal 3.5-5.3 [facility] Comment on above: Performed By: #### 2 681385 #### [facility] [address] [place] [address] Protein [Mass/Vol] 7.1 g/dL Normal 6.0-7.8 [facility] Comment on above: Performed By: #### 2 622756 #### [facility] [address] [place] [address] Sodium [Moles/Vol] 137 mmol/L Normal 135-145 [facility] Comment on above: Performed By: #### 2 [id number] #### [facility] [address] [place] [address] Urea nitrogen [Mass/Vol] 15 mg/dL Normal 5-21 [facility] Comment on above: Performed By: #### 2 [id number] #### [facility] [address] [place] [address] Urea nitrogen/Creatinine [Mass ratio] 14 No Units Normal 10-20 [facility] Comment on above: Performed By: #### 2 442796 #### [facility] [address] [place] [address] HEMATOLOGYOrdered By: SYSTEM SYSTEM on 05-01-2024 Basophils/100 [...] 05-01-2024 Cholesterol [Mass/Vol] 168 mg/dL Normal 120-200 [facility] Comment on above: Performed By: #### 2 859986 #### [facility] [address] [place] [address] Cholesterol in HDL [Mass/Vol] 54 mg/dL Invalid Interpretation Code [facility] Comment on above: Result Comment: '>= 60 LOW RISK' '<= 40 HIGH RISK' Performed By: #### 2 957323 #### [facility] [address] [place] [address] Cholesterol in LDL [Mass/Vol] 99 mg/dL Normal <=129 [facility] Comment on above: Performed By: #### 2 465489 #### [facility] [address] [place] [address] Cholesterol in VLDL [Mass/Vol] 16 mg/dL Normal 7-40 [facility] Comment on above: Performed By: #### 2 486198 #### [facility] [address] [place] [address] Triglyceride [Mass/Vol] 78 mg/dL Normal <=149 [facility] Comment on above: Performed By: #### 2 425486 #### [facility] [address] [place] [address] PSA Screen, Totalon 05-01-20 24 Prostate specific Ag [Mass/Vol] 1.3 ng/mL Normal 0.1-3.5 [facility] Comment on above: Result Comment: The concentration of PSA determined by different manufacturers can vary due to differences in assay methods and reagent specificity. Values obtained from different assay methods cannot be used interchangeably. The methodology used for this result was chemiluminescence using [employer]'s Access Hybritech PSA reagent. Performed By: #### 1 [id number] #### [facility] [address] [place] [address] CHEMISTRYOrdered By: Sara ROP User on 03-26-2024 Glucose [Mass/Vol] 92 mg/dL Normal 55 - 99 mg/dL [facility] POC Subsection Comment on above: Result Comment: Justine garcia RN/ POC Device SN [id number] 1 Invalid Interpretation Code [facility] POC Subsection POC User ID [id number] 1 Invalid Interpretation Code [facility] POC Subsection POC Username LORNA WILSON Invalid Interpretation Code [facility] POC Subsection COAGULATIONOrdered By: Toshia Tadeo on 03-26-2024 aPTT Coag (PPP) [Time] 35.8 s Normal 25.1 - 36.5 second(s) [facility] Auto Coag Comment on above: Interpretive Data: [...] the same coagulation reagent and instrumentation as [facility]. Currently there are no coagulation studies available worldwide for children to 14 days, and no normal ranges. Heparin therapeutic range (represented by Anti-Factor Xa activity of 0.2 - 0.4 U/mL) corresponds to PTT of 56.6 - 109.0 sec. INR Coag (PPP) [Relative time] 1.19 {INR} Invalid Interpretation Code [facility] Auto Coag Comment on above: Interpretive Data: I NR results are specifically intended to assess patients stabilized on long-term Anticoagulation therapy suggested INR s Less Intensive Anticoagulation 2.0 3.0 Conventional Range 3.0 4.5 PT Coag (PPP) [Time] 13.4 s High 9.4 - 1 2.5 second(s) [facility] Auto Coag Comment on above: Interpretive Data: [...] the same coagulation reagent and instrumentation as [facility]. Currently there are no coagulation studies available [...] (Bld) [Mass fraction] 5.6 % Normal <=5.9% [facility] [employer] HEMATOLOGYOrdered By: SYSTEM SYSTEM on 12-01-2023 [...] Normal 80.0 - 100.0 fL Remisol Heme [place] Absolute 0.5 E9/L Normal 0.2 - 1.0 [...] - 0 Remisol Heme Basic Metabolic Panelon 12-2 Calcium [Mass/Vol] 9.6671477 mg/dL Normal 8.6-10 .3 mg/dL [employer] Other Chloride [Moles/Vol] 102 mmol/L Normal 98-107 mmol/L [employer] Other CO2 [Moles/Vol] 32.61969968 mmol/L High 21.0-3 1.0 mmol/L [employer] Other Creatinine [Mass/Vol] 1.36009354 mg/dL Normal 0. 70-1.30 mg/dL [employer] Other GFR/1.73 sq M.predicted MDRD (S/P/Bld) [Vol rate/Area] mL/min/{1.73_m2} [employer] Other Glucose [Mass/Vol] 93 mg/dL Normal 70-100 mg/dL [employer] Other Potassium [Moles/Vol] 4.20541712 mmol/L Normal 3 .5-5.1 mmol/L [employer] Other Sodium [Moles/Vol] 138 mmol/L Normal 136-145 mmol/L [employer] Other Urea nitrogen [Mass/Vol] 13 mg/dL Normal 7-25 mg/dL [employer] Other Complete Blood Count Auto Di ffon 11-02-2023 Basophils (Bld) [#/Vol] 0.559254663 10*3/uL Normal 0.0-0.2 10*3/uL [employer] Other Basophils/100 WBC (Bld) 1.000 % . % [employer] Other Eosinophils (Bld) [#/Vol] 0.560315765 10*3/uL Normal 0.0-0.45 10*3/uL [employer] Other Eosinophils/100 WBC (Bld) 2.100 % . % [employer] Other Erythrocyte distribution width (RBC) [Ratio] 14.000 % Normal 12.0-14.8 % [employer] Other Hematocrit (Bld) [Volume fraction] 38.800 % Normal 38.8-50.0 % [employer] Other Hemoglobin (Bld) [Mass/Vol] 13.345254 g/dL Normal 13.0-17.0 g/dL [employer] Other Lymphocytes (Bld) [#/Vol] 1.139403286 10*3/uL Normal 1.00-4.8 10*3/uL [employer] Other Lymphocytes/100 WBC (Bld) 21.800 % . % [employer] Other MCH (RBC) [Entitic mass] 31.5000 pg Normal 27.5-35.2 pg [employer] Other MCV (RBC) [Entitic vol] 92.7000 fL Normal 83.5-101 fL [employer] Other Monocytes (Bld) [#/Vol] 0.195062101 10*3/uL Normal 0.0-0.8 10*3/uL [employer] Other Monocytes/100 WBC (Bld) 8.500 % . % [employer] Other Neutrophils (Bld) [#/Vol] 4.801108832 10*3/uL Normal 1.8-7.7 10*3/uL [employer] Other Neutrophils/100 WBC (Bld) 66.600 % . % [employer] Other Platelet mean volume (Bld) [Entitic vol] 9.4000 fL Normal 6.6-10.1 fL [employer] Other Platelets (Bld) [#/Vol] 153 10*3/uL Normal 150-450 10*3/uL [employer] Other RBC (Bld) [#/Vol] 4.19 10*6/uL Normal 3.90-5.60 [employer] Other WBC (Bld) [#/Vol] 6.347268981 10*3/uL Normal 4.1 -10.5 10*3/uL [employer] Other Complete Blood Count Auto Diff 6.1 10*3/uL Normal 4.1-10.5 10*3/uL [employer] Other Complete Blood Count Auto Diff 34.0 g/dL Normal 32.5-35.6 g/dL [employer] Other Complete Blood Count Auto Diff 0.1 /100{WBC} Normal 0-0.5 /100{WBC} [employer] Other Prothrombin Time INRon 06-16 INR Coag (PPP) [Relative time] 2.4 {INR} [employer] Other PT Coag (PPP) [Time] 27.800 s High 9.0-12.9 s [facility] [employer] Other Coding Summaryon 05-12-2020 Coding Summary CODING DATE: 05/12/2020 [facility] STATUS: Home PAYOR: Medicare MC ADMIT [...] Horan Date Saved: 05/12/2020 02:18 pm Normal [facility] ED Clinical Summaryon 2019 ED Clinical Summary [facility] ? Urgent Care [address] [place], [place] [id number] Clinical Summary PERSON INFORMATION Name: DARIEL ZABALA Age: 80 Years Sex: MALE : 1940 MRN: Acct#: Visit Reason: UC - Ear Problem; BILAT EAR PROBLEM Arrival: 05/08/2020 09:32:00 Discharge: 05/08/2020 10:15:00 LOS: 000 00:43 Check In: 05/08/2020 09:32:00 Checkout: 05/08/2020 10:15:00 Address: [place] [id number] PCP: Provider, Unlisted PROVIDER INFORMATION Provider Role [...] Adult Follow-Up: With: Address: When: [facility], [address] [place] [id number] Business (1) Comments: Please follow-up with your Doctor or Dr. Arellano, Medical Doctor absorption plant operator helper, call their offices and make ointment to be seen in 3 days or sooner for continued care, please purchase aefw-msc-tuzjlhg Debrox which helps breakdown earwax, take all your medications as previously prescribed, drink plenty of water for hydration, and return back to urgent care center for any worsening symptoms, concerns, or complications. DIAGNOSIS: 1:Impacted cerumen of both ears Patient Understands: Yes - Patient/family/careg iver verbalizes understanding of instructions given Comment: Normal [facility] ED Patient Summaryon 020 ED Patient Summary [facility] ? Urgent Care [address] [place] [address] [id number] PATIENT DISCHARGE INSTRUCTIONS Patient Information Name: DARIEL ZABALA Age: 80 Years Date of : 1940 Reason For Visit: UC - Ear Problem; BILAT EAR PROBLEM Arrival Time: 05/08/2020 09:32:00 Primary Care Physician: Provider, Unlisted Attending Physician: Larry Billingsley PA-C Comment: Patient Education With: Address: When: [facility], [address] [phone] Business (1) Comments: Please follow-up with your Doctor or Dr. Arellano, Medical Doctor absorption plant operator helper, call their offices and make ointment to be seen in 3 days or sooner for continued care, please purchase hpua-msn-wlxgrlm Debrox which helps breakdown earwax, take all [...] Follow these instructions at home: ? Take stul-pnr-nqhqxwo and prescription medicines only as told by [...] clean them according to instructions from the jet blade polisher and your health care provider. Contact a [...] 12/08/2005 Document Revised: 10/12/2018 Document Reviewed: 01/11/2018 [employer] Interactive Patient Education ? 2019 [employer] Medication Information: The exam and treatment you received today in the [facility] Emergency Department were for an urgent problem and are not intended as complete care. It is important for you to follow up with a doctor, nurse practitioner, or physician?s nurses assistant for ongoing care. If your symptoms [...] so we can reach you if necessary. [facility] Emergency Department has provided you with [...] both ears (H61.23) UC - Ear Problem ([id number]) If you received any narcotics, sedation, or [...] Control and Prevention July 2014 [facility] Patient Handouton 05-08-2020 Patient Handout Patient [...] Follow these instructions at home: ? Take sskw-bmn-clqfkcl and prescription medicines only as told by [...] clean them according to instructions from the jet blade polisher and your health care provider. Contact a [...] 12/08/2005 Document Revised: 10/12/2018 Document Reviewed: 01/11/2018 [employer] Interactive Patient Education ? 2019 [employer]. Normal [facility] Urgent Care Recordon 020 Urgent Care Record [facility] ? Urgent Care [address] [id number] PATIENT DISCHARGE INSTRUCTIONS Patient Information Name: DARIEL ZABALA Age: 80 Years Date of : 1940 Reason For Visit: UC - Ear Problem; BILAT EAR PROBLEM Arrival Time: 05/08/2020 09:32:00 Primary Care Physician: Provider, Unlisted Attending Physician: Larry Billingsley PA-C Comment: Visit Diagnosis: Diagnoses This Visit Impacted cerumen of both ears (H61.23) UC - Ear Problem ([id number]) If you received any narcotics, sedation, or [...] legal documents With: Address: When: Andréslisa Arellano [facility], [address] [place] [address] Business (1) Comments: Please follow-up with your Doctor or Dr. Arellano, Medical Doctor absorption plant operator helper, call their offices and make ointment to be seen in 3 days or sooner for continued care, please purchase vqbd-aed-mkvyhdr Debrox which helps breakdown earwax, take all your medications as previously prescribed, drink plenty of water for hydration, and return back to urgent care center for any worsening symptoms, concerns, or complications. Medication Information: The exam and treatment you received today in the [facility] Urgent Care were for an urgent problem and are not intended as complete care. It is important for you to follow up with a doctor, nurse practitioner, or physician?s nurses assistant for ongoing care. If your symptoms [...] so we can reach you if necessary. [facility] Urgent Care has provided you with [...] Follow these instructions at home: ? Take mmdd-gil-nagtkth and prescription medicines only as told by [...] clean them according to instructions from the jet blade polisher and your health care provider. Contact a [...] 12/08/2005 Document Revised: 10/12/2018 Document Reviewed: 01/11/2018 [employer] Interactive Patient Education ? 2019 [employer] Viruses or Bacteria What?s got you [...] Control and Prevention July 2014 [facility] Vital Signs Date Time Vital Sign Value Performing Clinician Facility 07-23-2025 13:28-0400 Body temperature 98.3 [degF] Yanique Españaann Movatu Work Phone: [facility] 07-23-2025 13:28-0400 Diastolic blood pressure 65 mm[Hg] Yanique Reyes [employer] Work Phone: [facility] 07-23-2025 13:28-0400 Heart rate 65 /min Yanique Españaann Movatu Work Phone: [facility] 07-23-2025 13:28-0400 Respiratory rate 18 /min Yanique Reyes PROJECT FACILITATOR-[employer] Work Phone: [facility] 07-23-2025 13:28-0400 SaO2% (BldA) [Mass fraction] 98 % Yanique Españaann Movatu Work Phone: [facility] 07-23-2025 13:28-0400 Systolic blood pressure 140 mm[Hg] Yanique Reyes PROJECT FACILITATOR-[employer] Work Phone: [facility] 07-23-2025 06:00-0400 Body weight 75.5 kg Yanique Reyes Movatu Work Phone: [facility] 07-22-2025 12:49-0400 Body height 180.34 cm Yanique Mcneill PROJECT FACILITATOR-BC Work Phone: [facility] 06-23-2025 11:50-0400 Body temperature 97.7 [degF] Erika Crisostomo MD Work Phone: [facility] 06-23-2025 11:50-0400 Diastolic blood pressure 63 mm[Hg] Erika Crisostomo MD Work Phone: [facility] 06-23-2025 11:50-0400 Heart rate 67 /min Erika Crisostomo MD Work Phone: [facility] 06-23-2025 11:50-0400 Respiratory rate 16 /min Erika Crisostomo MD Work Phone: [facility] 06-23-2025 11:50-0400 SaO2% (BldA) [Mass fraction] 99 % Erika Crisostomo MD Work Phone: [facility] 06-23-2025 11:50-0400 Systolic blood pressure 114 mm[Hg] Erika Crisostomo MD Work Phone: [facility] 06-23-2025 04:38-0400 Body mass index (BMI) [Ratio] 22.65 kg/m2 Erika Crisostomo MD Work Phone: [facility] 06-23-2025 04:38-0400 Body weight 71.6 kg Erika Crisostomo MD Work Phone: [facility] 06-19-2025 12:37-0400 Body height 177.8 cm Erika Crisostomo MD Work Phone: [facility] 06-05-2025 15:00-0400 Diastolic blood pressure 47 mm[Hg] Axel Monet DO Work Phone: [employer] 06-05-2025 15:00-0400 Heart rate 71 /min Axel Monet DO Work Phone: [employer] 06-05-2025 15:00-0400 Respiratory rate 15 /min Axel Monet DO Work Phone: [facility] [employer] 06-05-2025 15:00-0400 Systolic blood pressure 110 mm[Hg] [facility] 06-05-2025 13:00-0400 Body temperature 97.7 [degF] Axel [facility] DO [facility] 06-05-2025 06:30-0400 SaO2% (BldA) [Mass fraction] 100 % Axel Monet DO Work Phone: [facility] 06-05-2025 04:00-0400 Body mass index (BMI) [Ratio] 26.48 kg/m2 Axel Monet DO Work Phone: [facility] 06-05-2025 04:00-0400 Body weight 83.7 kg Axel Monet DO Work Phone: [facility] [employer] 06-02-2025 10:06-0400 Body height 177.8 cm Axel Monet DO [facility] 11-26-2024 10:27-0500 Body mass index (BMI) [Ratio] 24.74 kg/m2 Emiliano Escamilla MD Work Phone: [facility] 11-26-2024 10:27-0500 Body weight 77.11 kg Emiliano Escamilla MD Work Phone: [facility] 11-26-2024 10:27-0500 Diastolic blood pressure 73 mm[Hg] Emiliano Escamilla MD Work Phone: [facility] 11-26-2024 10:27-0500 Heart rate 87 /min Emiliano Escamilla MD Work Phone: [facility] 11-26-2024 10:27-0500 Systolic blood pressure 148 mm[Hg] Emiliano Escamilla MD Work Phone: [facility] 11-19-2024 14:27-0500 Diastolic blood pressure 82 mm[Hg] Axel Hernández [facility] 11-19-2024 14:27-0500 Heart rate 66 /min Axel Hernández [facility] 11-19-2024 14:27-0500 Mean blood pressure 103 mm[Hg] Axel Edgar [facility] 11-19-2024 14:27-0500 Respiratory rate 18 /min Axel Hernández [facility] 11-19-2024 14:27-0500 SaO2% (BldA) [Mass fraction] 95 % Axel Hernández [facility] 11-19-2024 14:27-0500 Systolic blood pressure 144 mm[Hg] Axel Edgar [facility] 11-19-2024 13:23-0500 Blood Pressure Location Axel Hernández [facility] 11-19-2024 13:23-0500 Body temperature 96.8 [degF] Axel Edgar [facility] 11-19-2024 13:23-0500 Diastolic blood pressure 69 mm[Hg] Axel Edgar [facility] 11-19-2024 13:23-0500 Heart rate 63 /min Axel Edgar [facility] 11-19-2024 13:23-0500 Mean blood pressure 92 mm[Hg] Axel Edgar [facility] 11-19-2024 13:23-0500 Respiratory rate 20 /min Axel Edgar [facility] 11-19-2024 13:23-0500 SaO2% (BldA) [Mass fraction] 99 % Axel Edgar [facility] 11-19-2024 13:23-0500 Systolic blood pressure 139 mm[Hg] Axel Edgar [facility] 11-19-2024 13:05-0500 Body temperature 97.34 [degF] Axel Edgar [facility] 11-19-2024 13:05-0500 Diastolic blood pressure 69 mm[Hg] Axel Edgar [facility] 11-19-2024 13:05-0500 Heart rate 65 /min Axel Edgar [facility] 11-19-2024 13:05-0500 Mean blood pressure 87 mm[Hg] Axel Edgar [facility] 11-19-2024 13:05-0500 Respiratory rate 16 /min Axel Edgar [facility] 11-19-2024 13:05-0500 SaO2% (BldA) [Mass fraction] 97 % Axel Edgar [facility] 11-19-2024 13:05-0500 Systolic blood pressure 122 mm[Hg] Axel Edgar [facility] 11-19-2024 12:40-0500 Body temperature 97.7 [degF] Axel Edgar [facility] 11-19-2024 12:35-0500 Respiratory rate 12 /min Axel Edgar [facility] 11-19-2024 12:30-0500 Body temperature 96.8 [degF] Axel Hernández [facility] 11-19-2024 12:30-0500 Respiratory rate 13 /min Axel Hernández [facility] 11-19-2024 12:25-0500 Body temperature 96.8 [degF] Axel Hernández [facility] 11-19-2024 12:25-0500 Respiratory rate 15 /min Axel Hernández [facility] 11-19-2024 12:20-0500 Body temperature 96.8 [degF] Axel Hernández [facility] 11-19-2024 09:55-0500 Mean blood pressure 85 mm[Hg] Axle Hernández [facility] 11-19-2024 09:52-0500 Mean blood pressure 79 mm[Hg] Axel Hernández [facility] 10-30-2024 10:36-0500 Diastolic blood pressure 67 mm[Hg] Axel Edgar [facility] 10-30-2024 10:36-0500 Heart rate 57 /min Axel Hernández [facility] 10-30-2024 10:36-0500 Mean blood pressure 86 mm[Hg] Axel Hernández [facility] 10-30-2024 10:36-0500 Systolic blood pressure 124 mm[Hg] Axel Hernández [facility] 10-30-2024 10:34-0500 Heart rate 56 /min Axel Hernández [facility] 10-30-2024 10:34-0500 SaO2% (BldA) [Mass fraction] 100 % Axel Hernández [facility] 10-30-2024 10:34-0500 Diastolic blood pressure 83 mm[Hg] Axel Hernández [facility] 10-30-2024 10:34-0500 Mean blood pressure 105 mm[Hg] Axel Hernández [facility] 10-30-2024 10:34-0500 Systolic blood pressure 148 mm[Hg] Axel Hernández [facility] 10-03-2024 10:58-0500 Body height 176.5 cm Axel Hernández DO Work Phone: [facility] 10-03-2024 10:58-0500 Body mass index (BMI) [Ratio] 26.64 kg/m2 Axel Hernández DO Work Phone: [facility] 10-03-2024 10:58-0500 Body temperature 98.1 [degF] Axel Hernández DO Work Phone: [facility] 10-03-2024 10:58-0500 Body weight 83.01 kg Axel Hernández DO Work Phone: [facility] 08-28-2024 14:47-0400 Blood Pressure Location Davie Tristancorriney [facility] 08-28-2024 14:47-0400 Diastolic blood pressure 75 mm[Hg] Davie Hudsonurany [facility] 08-28-2024 14:47-0400 Heart rate 65 /min Davie Acey [facility] 08-28-2024 14:47-0400 Respiratory rate 16 /min Davie Hudsonurany [facility] 08-28-2024 14:47-0400 Systolic blood pressure 119 mm[Hg] Davie Hudsonurany [facility] 06-11-2024 12:48-0400 Diastolic blood pressure 78 mm[Hg] Kashif Kirnus [facility] 06-11-2024 12:48-0400 Heart rate 70 /min Kashif Kirnus [facility] 06-11-2024 12:48-0400 Respiratory rate 18 /min Kashif Kirnus [facility] 06-11-2024 12:48-0400 SaO2% (BldA) [Mass fraction] 97 % Kashif Kirnus [facility] 06-11-2024 12:48-0400 Systolic blood pressure [...] Diastolic blood pressure 78 mm[Hg] Kashif Kirnus [facility] 04-20-2024 13:17-0400 Heart rate 62 /min Kashif Kirnus [facility] 04-20-2024 13:17-0400 SaO2% (BldA) [Mass fraction] 97 % Kashif Kirnus [facility] 04-20-2024 13:17-0400 Systolic blood pressure 138 mm[Hg] Kashif Kirnus [facility] 03-26-2024 14:30-0400 Diastolic blood pressure 64 mm[Hg] Axel Hernández [facility] 03-26-2024 14:30-0400 Heart rate 50 /min Axel Hernández [facility] 03-26-2024 14:30-0400 Respiratory rate 16 /min Axel Edgar [facility] 03-26-2024 14:30-0400 SaO2% (BldA) [Mass fraction] 98 % Axel Edgar [facility] 03-26-2024 14:30-0400 Systolic blood pressure 128 mm[Hg] Axel Edgar [facility] 03-26-2024 13:31-0400 Heart rate 54 /min Axel Edgar [facility] 03-26-2024 13:31-0400 SaO2% (BldA) [Mass fraction] 97 % Axel Edgar [facility] 03-26-2024 13:31-0400 Respiratory rate 16 /min Axel Edgar [facility] 03-26-2024 13:30-0400 Body temperature 97.34 [degF] Axel Edgar [facility] 03-26-2024 13:29-0400 Blood Pressure Location Axel Edgar [facility] 03-26-2024 13:29-0400 Diastolic blood pressure 70 mm[Hg] Axel Hernández [facility] 03-26-2024 13:29-0400 Mean blood pressure 88 mm[Hg] Axel Hernández [facility] 03-26-2024 13:29-0400 Systolic blood pressure 125 mm[Hg] Axel Hernández [facility] 03-26-2024 13:20-0400 Body temperature 97.52 [degF] Axel Hernández [facility] 03-26-2024 13:20-0400 Diastolic blood pressure 63 mm[Hg] Axel Hernández [facility] 03-26-2024 13:20-0400 Heart rate 54 /min Axel Edgar [facility] 03-26-2024 13:20-0400 Mean blood pressure 77 mm[Hg] Axel Edgar [facility] 03-26-2024 13:20-0400 Respiratory rate 15 /min Axel Edgar [facility] 03-26-2024 13:20-0400 SaO2% (BldA) [Mass fraction] 97 % Axel Edgar [facility] 03-26-2024 13:20-0400 Systolic blood pressure 104 mm[Hg] Axel Hernández [facility] 03-26-2024 13:15-0400 Mean blood pressure 73 mm[Hg] Axel Edgar [facility] 03-26-2024 13:15-0400 Respiratory rate 15 /min Axel Edgar [facility] 03-26-2024 13:10-0400 Mean blood pressure 72 mm[Hg] Axel Edgar [facility] 03-26-2024 13:10-0400 Respiratory rate 11 /min Axel Edgar [facility] 03-26-2024 12:55-0400 Body temperature 97.52 [degF] Axel Hernández [facility] 03-26-2024 12:50-0400 Respiratory rate 1 /min Axel Hernández [facility] 03-26-2024 09:36-0400 Blood Pressure Location Axel Hernández [facility] 03-26-2024 09:36-0400 Mean blood pressure 112 mm[Hg] Axel Hernández [facility] 03-26-2024 09:34-0400 Mean blood pressure 97 mm[Hg] Axel Edgar [facility] 03-26-2024 09:34-0400 Body temperature 97.34 [degF] Axel Edgar [facility] 03-26-2024 09:34-0400 Blood Pressure Location Axel Edgar [facility] 03-26-2024 09:34-0400 Heart rate 50 /min Axel Hernández [facility] 03-06-2024 08:11-0400 Blood Pressure Location Axel Hernández [facility] 03-06-2024 08:11-0400 Diastolic blood pressure 74 mm[Hg] Axel Edgar [facility] 03-06-2024 08:11-0400 Heart rate 56 /min Axel Edgar [facility] 03-06-2024 08:11-0400 Mean blood pressure 98 mm[Hg] Axel Edgar [facility] 03-06-2024 08:11-0400 Systolic blood pressure 147 mm[Hg] Axel Edgar [facility] 03-06-2024 08:11-0400 Heart rate 57 /min Axel Edgar [facility] 03-06-2024 08:11-0400 SaO2% (BldA) [Mass fraction] 98 % Axel Edgar [facility] 03-06-2024 08:10-0400 Blood Pressure Location Axel Edgar [facility] 03-06-2024 08:10-0400 Body temperature 98.06 [degF] Axel Edgar [facility] 03-06-2024 08:10-0400 Diastolic blood pressure 73 mm[Hg] Axel Edgar [facility] 03-06-2024 08:10-0400 Mean blood pressure 92 mm[Hg] Axel Hernández [facility] 03-06-2024 08:10-0400 Systolic blood pressure 129 mm[Hg] Axel Hernández [facility] 03-06-2024 08:10-0400 Respiratory rate 18 /min Axel Hernández [facility] 11-18-2023 11:00-0500 Body height 180.34 cm Jada Rene Other [employer] Other 11-18-2023 11:00-0500 Body mass index (BMI) [Ratio] 25.38 kg/m2 Jada Rene Other [employer] Other 11-18-2023 11:00-0500 Body temperature 97.6 [degF] Jada Rene Other [employer] Other 11-18-2023 11:00-0500 Body weight 82.56 kg Jada Rene Other [employer] Other 11-18-2023 11:00-0500 Diastolic blood pressure 80 mm[Hg] Jada Rene Other [employer] Other 11-18-2023 11:00-0500 Respiratory rate 18 /min Jada Rene Other [employer] Other 11-18-2023 11:00-0500 SaO2% (BldA) [Mass fraction] 99 % Jada Rene Other [employer] Other 11-18-2023 11:00-0500 Systolic blood pressure 132 mm[Hg] Jada Rene Other [employer] Other 11-02-2023 13:00-0500 Body height 180.34 cm Jadaendy Rene Other [employer] Other 11-02-2023 13:00-0500 Body mass index (BMI) [Ratio] 24.4 kg/m2 Jadaendy Rene Other [employer] Other 11-02-2023 13:00-0500 Body weight 79.38 kg Jadaendy Rene Other [employer] Other 11-02-2023 13:00-0500 Diastolic blood pressure 82 mm[Hg] Jadamray Rene Other [employer] Other 11-02-2023 13:00-0500 Respiratory rate 18 /min Jadamary Rene Other [employer] Other 11-02-2023 13:00-0500 SaO2% (BldA) [Mass fraction] 97 % Jadamary Rene Other [employer] Other 11-02-2023 13:00-0500 Systolic blood pressure 138 mm[Hg] Jada Edgard Other [employer] Other 09-21-2023 10:00-0500 Body height 180.34 cm Jadaendy Rene Other [employer] Other 09-21-2023 10:00-0500 Body mass index (BMI) [Ratio] 25.81 kg/m2 Jadaendy Rene Other [employer] Other 09-21-2023 10:00-0500 Body weight 83.96 kg Jada Rene Other [employer] Other 09-21-2023 10:00-0500 Diastolic blood pressure 70 mm[Hg] Jada Rene Other [employer] Other 09-21-2023 10:00-0500 Respiratory rate 18 /min Jada Rene Other [employer] Other 09-21-2023 10:00-0500 SaO2% (BldA) [Mass fraction] 98 % Jada Rene Other [employer] Other 09-21-2023 10:00-0500 Systolic blood pressure 140 mm[Hg] Jada Rene Other [employer] Other 06-16-2023 11:00-0400 Body height 180.34 cm Jada Rene Other [employer] Other 06-16-2023 11:00-0400 Body mass index (BMI) [Ratio] 23.79 kg/m2 Jada Rene Other [employer] Other 06-16-2023 11:00-0400 Body weight 77.38 kg Jada Rene Other [employer] Other 06-16-2023 11:00-0400 Diastolic blood pressure 64 mm[Hg] Jada Rene Other [employer] Other 06-16-2023 11:00-0400 Respiratory rate 18 /min Jada Rene Other [employer] Other 06-16-2023 11:00-0400 SaO2% (BldA) [Mass fraction] 98 % Jada Rene Other [employer] Other 06-16-2023 11:00-0400 Systolic blood pressure 118 mm[Hg] Jadaendy Rene Other [employer] Other Encounters Encounter Date Encounter Type Care Provider Facility Start: 05-13-2026 ambulatory YANIQUE A REYES Facili ty:[facility] Start: 08-08-2025 ambulatory YANIQUE A REYES Facili ty:[facility] Start: 08-05-2025 ambulatory YANIQUE REYES Facility :[id number] Start: 07-31-2025 ambulatory Zechariah CREWS Facility : [place] Start: 07-25-2025 End: 07-25-2025 ambulatory YANIQUE A REYES Facility:[facility] [place] Start: 07-24-2025 ambulatory YANIQUE REYES Facility : [place] Start: 07-24-2025 End: 07-31-2025 ambulatory YANIQUE A REYES Facility:[id number] Start: 07-22-2025 End: 07-22-2025 External Result Encounter [...] 07-19-2025 Non-patient / Non-visit Axel marshall MD -[facility] Work Phone: Start: 07-19-2025 End: 07-23-2025 Evaluation and management of inpatient Mohamad Billy Facility:[facility] Start: 07-11-2025 End: 07-11-2025 ambulatory YANIQUE A REYES Facility:[facility] Start: 07-08-2025 End: 07-08-2025 ambulatory Jaden Maravilla Facility:[facility] Start: 07-05-2025 End: 07-22-2025 ambulatory YANIQUE A REYES Facility:[id number] Start: 07-04-2025 End: 07-04-2025 ambulatory YANIQUE A REYES Facility:[facility] Start: 06-19-2025 ambulatory YANIQUE A REYES Facili ty:[facility] Start: 06-17-2025 End: 06-23-2025 Evaluation and management of inpatient Mirian Carranza MD Work Phone: [facility] 8 Acute Comment on above: 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) (Primary Dx) Start: 06-14-2025 End: 06-18-2025 ambulatory YANIQUE A REYES Facility:[id number] Start: 06-13-2025 End: 06-13-2025 ambulatory YANIQUE A REYES Facility:[facility] Start: 06-07-2025 End: 06-13-2025 ambulatory YANIQUE A REYES Facility:[id number] Start: 06-07-2025 End: 06-07-2025 ambulatory YANIQUE A REYES Facility:[facility] Start: 06-02-2025 End: 06-05-2025 Evaluation and management of inpatient Axel Monet DO Work Phone: [facility] Comment on above: Hyponatremia (Primar y Dx) Start: 05-20-2025 End: 05-20-2025 Lab Drop off YANIQUE A REYES [facility] Start: 05-20-2025 End: 05-20-2025 ambulatory YANIQUE MCNEILL Facility:[facility] Start: 05-09-2025 End: 05-09-2025 ambulatory Edwin Garcia Facility:[facility] Start: 02-05-2025 End: 02-06-2025 Lab Drop off Edwin Garcia [facility] Start: 02-05-2025 End: 02-06-2025 ambulatory Edwin Garcia Facility:[facility] Start: 01-24-2025 End: 01-24-2025 Lab Drop off Edwin Garcia [facility] Start: 01-24-2025 End: 01-24-2025 ambulatory Edwin Garcia Facility:[facility] Start: 01-09-2025 End: 01-09-2025 Lab Drop off Edwin Garcia [facility] Start: 01-09-2025 End: 01-09-2025 ambulatory MD Edwin Garcia Facility:[facility] Start: 12-31-2024 End: 12-31-2024 Lab Drop off Edwin Garcia [facility] Start: 12-31-2024 End: 12-31-2024 ambulatory MD Edwin Garcia Facility:[facility] Start: 12-24-2024 End: 12-24-2024 ambulatory Edwin Garcia Facility:[facility] Start: 12-17-2024 End: 12-17-2024 Lab Drop off Edwin Garcia [facility] Start: 12-17-2024 End: 12-17-2024 ambulatory Edwin Garcia Facility:[facility] Start: 12-17-2024 End: 01-22-2025 ambulatory Edwin Garcia Facility:[id number] Start: 11-28-2024 End: 11-28-2024 Bamboo flowsheet Jose L Chow [employer]ING [employer]ACH[employer] Work Phone: [facility] Start: 11-28-2024 End: 11-28-2024 Bamboo flowsheet Jose L Chow BORING MACHINE OPERATOR [employer]ODUCTION Work Phone: [facility] Start: 11-28-2024 End: 11-28-2024 Postop follow up visit related to original px Jose L Chow BORING MACHINE OPERATOR [employer]ODUCTION Work Phone: [facility] Comment on above: Status post carpal t unnel release (Primary Dx) Start: 11-28-2024 End: 11-28-2024 ambulatory JOSE L CHOW Not Available Start: 11-26-2024 End: 11-26-2024 Bamboo flowsheet Emiliano Escamilla MD Work Phone: [facility] Start: 11-26-2024 End: 11-26-2024 Bamboo flowsheet Emiliano Escamilla MD Work Phone: [facility] Start: 11-26-2024 End: 11-26-2024 Patient encounter procedure Emiliano Escamilla MD Work Phone: [facility] Comment on above: Foreign body of righ [...] surgery center Axel Hernández [facility] Start: 11-19-2024 End: 11-19-2024 ambulatory Axel Hernández Facility:[facility] Start: 11-13-2024 ambulatory Edwin Garcia Facility :[facility] [place] Start: 11-12-2024 End: 11-12-2024 Lab Drop off Edwin Garcia [facility] Start: 11-12-2024 End: 11-12-2024 ambulatory Edwin Garcia Facility:[facility] Start: 11-01-2024 End: 11-01-2024 ambulatory Edwin Garcia Facility:[facility] [place] Start: 10-30-2024 End: 10-30-2024 ambulatory Axel Hernández Facility:[facility] Start: 10-30-2024 End: 10-30-2024 Patient encounter procedure Axel Hernández [facility] Start: 10-03-2024 End: 10-03-2024 Bamboo flowsheet Axel [...] Bamboo flowsheet Shala Farrell MD Work Phone: [facility] Start: 09-28-2024 End: 09-28-2024 [...] Start: 09-10-2024 End: 09-10-2024 ambulatory Edwin Garcia Facility:[facility] [place] Start: 08-28-2024 End: 08-28-2024 ambulatory Davie Vargas Facility:[facility] Start: 08-28-2024 End: 08-28-2024 Patient encounter procedure Davie Vargas [facility] [place] Start: 08-20-2024 End: 08-20-2024 Telephone encounter Shala Farrell MD Work Phone: [facility] Start: 08-13-2024 End: 08-13-2024 ambulatory Nathaniel Bonilla MD Facility: [place] Start: 08-07-2024 End: 08-07-2024 ambulatory Edwin Garcia Facility: [facility] [place] Start: 07-31-2024 End: 07-31-2024 ambulatory Edwin Garcia Facility: [facility] Start: 07-24-2024 End: 07-24-2024 ambulatory Edwin Garcia Facility: [facility] Start: 07-23-2024 ambulatory Edwin Garcia Facility :[facility] Start: 07-05-2024 ambulatory [facility] Start: 07-03-2024 End: 07-03-2024 ambulatory Edwin Garcia Facility: [facility] [place] Start: 06-20-2024 End: 06-20-2024 ambulatory AXEL HERNÁNDEZ Not Available Start: 06-11-2024 End: 06-11-2024 ambulatory XXXX NONE Facility:[facility] Start: 06-11-2024 End: 06-11-2024 Patient encounter procedure Kashif Barnett [facility] Start: 05-30-2024 End: 05-30-2024 ambulatory Edwin Garcia Facility:[facility] Start: 05-30-2024 End: 05-30-2024 Patient encounter procedure Dixon Endy Gracy [facility] Start: 05-21-2024 End: 05-21-2024 Patient encounter procedure Kashif Costaromina [facility] Start: 05-01-2024 End: 05-01-2024 Patient encounter procedure Kashif Costaromina [facility] Start: 05-01-2024 End: 05-01-2024 Lab Drop off Edwin Garcia [facility] Start: 04-20-2024 End: 04-20-2024 Patient encounter procedure Kashif Hazel Costaromina [facility] Start: 04-04-2024 End: 04-04-2024 ambulatory AXEL HERNÁNDEZ Not Available Start: 03-26-2024 End: 03-26-2024 Admission to same day surgery center Axel Hernández [facility] Start: 03-06-2024 End: 03-06-2024 Patient encounter procedure Axel Hernández [facility] Start: 02-15-2024 End: 02-15-2024 ambulatory AXEL HERNÁNDEZ Not Available Start: 02-15-2024 End: 02-15-2024 ambulatory AXEL HERNÁNDEZ Not Available Start: 12-06-2023 End: 12-06-2023 ambulatory Jadaendy Rene Other [employer] Other Start: 12-06-2023 Telephone encounter Jada Rene [facility] [place] Start: 12-02-2023 End: 12-02-2023 ambulatory Jadaendy Rene Other [employer] Other Start: 12-02-2023 Telephone encounter Jada Rene [facility] [place] Start: 12-01-2023 End: 12-01-2023 Lab Drop off Edwin GarnerShanna Adam [facility] Start: 11-18-2023 End: 11-18-2023 ambulatory Jadaendy Rene Other [employer] Other Start: 11-18-2023 Office outpatient vi sit 25 minutes Jadamary Rene [facility] [place] Start: 11-02-2023 End: 11-02-2023 ambulatory Jadaendy Rene Other [employer] Other Start: 11-02-2023 Office outpatient vi sit 25 minutes Jada Rene [facility] [place] Start: 11-02-2023 Telephone encounter Jada Rene [facility] [place] Start: 10-28-2023 End: 10-28-2023 ambulatory Jadaendy Rene Other [employer] Other Start: 10-28-2023 Telephone encounter Jada eRne [facility] [place] Start: 09-30-2023 End: 09-30-2023 Nurse Triage Venessa Riggins RN NURSE VOCATIONAL COORDINATOR Comment on above: Refill Request Start: 09-30-2023 Telephone encounter Jada Rene [facility] [place] Start: 09-21-2023 End: 09-21-2023 ambulatory Jadaendy Rene Other [employer] Other Start: 09-21-2023 Office outpatient vi sit 25 minutes Jadamary Rene [facility] [place] Start: 08-29-2023 End: 08-29-2023 ambulatory Jada Edgard Other [employer] Other Start: 08-29-2023 Telephone encounter Jadaendy Rene [facility] [place] Start: 08-26-2023 End: 08-26-2023 ambulatory Jada Rene Other [employer] Other Start: 08-26-2023 Telephone encounter Jadaendy Rene [facility] [place] Start: 08-08-2023 End: 08-08-2023 ambulatory Jada Rene Other [employer] Other Start: 08-08-2023 Telephone encounter Jadaendy Rene [facility] [place] Start: 07-27-2023 End: 07-27-2023 ambulatory Jada Edgard Other [employer] Other Start: 07-27-2023 Telephone encounter Jadaendy Rene [facility] [place] Start: 06-16-2023 End: 06-16-2023 ambulatory Jadaendy Rene Other [employer] Other Start: 06-16-2023 Office outpatient ne w 45 minutes Jadamary Rene [facility] [place] Start: 06-16-2023 Telephone encounter Jadaendy Rene [facility] [place] Procedures Date Procedure Procedure Detail Performing Clinician [...] Phone: Start: 06-18-2025 EXTRA TUBES PST TOP Bryana hazel Carranza MD Work Phone: Start: 06-18-2025 Assay [...] MD Work Phone: Start: 06-17-2025 BEDSIDE GLUCOSE Bryanad Barker MD Work Phone: Start: 06-17-2025 Cerebral [...] 06-04-2025 Glucose blood reagen t strip Flaco Rne MD Work Phone: Start: 06-04-2025 Glucose blood [...] Work Phone: Start: 06-04-2025 ELECTROLYTES PLUS Rolf krishan Hedrick DO Work Phone: Start: 06-04-2025 Gluc [...] TO MG FOR LOW K Adore Cueto [employer]OTH PRINTING BACK TENDER - BORING MACHINE OPERATOR PRODUCTION Work Phone: Start: 06-03-2025 End: 06-04-2025 Prothrombin time Adore Cueto [employer]OTH PRINTING BACK TENDER - BORING MACHINE OPERATOR PRODUCTION Work Phone: Start: 06-02-2025 Glucose blood reagen t strip Brigida Valeriano Pina DO Work Phone: Start: 06-02-2025 Glucose blood reagen t strip Brigida J Orlop DO Work Phone: Start: 06-02-2025 BASIC METABOLIC PANE L W/ REFLEX TO MG FOR LOW K Leelee Easley CLOTH PRINTING BACK TENDER - INSURANCE CONSULTANT Work Phone: Start: 06-02-2025 End: 06-02-2025 Prothrombin time Leelee Easley CLOTH PRINTING BACK TENDER - INSURANCE CONSULTANT Work Phone: Start: 11-19-2024 [facility] CAPILLARY GLUCO SE POC Axel Hernández DO [...] (Diabetes, CKD 3-4, OR last GFR 15-59) [facility] Start: 07-23-2025 [facility] Start: 07-22-2025 Referral to urologist [facility] Start: 07-20-2025 Administration of prophylactic treatment [facility] Start: 07-20-2025 Referral to general surgeon [facility] Start: 07-19-2025 Hospital admission [facility] Start: 07-19-2025 Referral to infectio us diseases physician [facility] Start: 07-19-2025 [facility] Start: 07-15-2025 Influenza vaccination Influenza Vacc ine (#1) [facility] Start: 06-14-2025 Influenza vaccination [facility] Start: 06-12-2025 End: 06-05-2026 Basic metabolic 2000 panel - Serum or Plasma Basic Metabolic Panel Lab Routine Hyponatremia Expected: 06/12/2025, Expires: 06/05/2026 [facility] Comment on above: Expected: 06/12/2025 , Expires: 06/05/2026 Start: 03-29-2025 COVID-19 Vaccine ( season) COVID-19 Vaccine ( season) [employer] [facility] Start: 12-26-2024 End: 12-26-2024 Patient encounter procedure 12/26/2024 1:45 PM EST Office Visit [facility] [address] [place] [address] Jose L Chow, BORING MACHINE OPERATOR PRODUCTION [address] [place], [place] [id number] [facility] Start: 11-28-2024 End: 11-28-2024 Patient encounter procedure [facility] Comment on above: Arrived Start: 11-26-2024 End: 11-26-2024 Patient encounter procedure 11/26/2024 10:30 AM EST Office Visit [facility] [address] [place] [address] Emiliano Escamilla MD [address] [facility] [address] [place], [place] [id number] Arrived [facility] Comment on above: Arrived Start: 11-14-2024 Annual Wellness Visi t (Medicare Advantage) Annual Wellness Visit (Medicare Advantage) [facility] Start: 10-03-2024 End: 10-03-2025 ECG 12 lead ECG 12 lead ECG Routine Pre-op testing Expected: 10/03/2024 (Approximate), Expires: 10/03/[address] [facility] Work Phone: Comment on above: Expected: 10/03/2024 (Approximate), Expires: 10/03/2025 Start: 10-03-2024 End: 10-03-2024 Patient encounter procedure 10/03/2024 10:45 AM EST Office [facility] [address] [facility] [address] [place] [address] Axel Hernández, [address] [place] [address] Right hand pain (Primary Dx); Arm weakness [facility] Comment on above: Right hand pain (Holly ayaan Dx); Arm weakness Start: 07-15-2024 Influenza vaccination Influenza Vacc ine (#1) [facility] Start: 07-15-2023 Influenza vaccination Influenza Vacc ine (#1) [facility] Start: 01-01-2023 Advance Directive Discussion Advance Directive Discussion [facility] Start: 11-14-2022 Depression Assessment Depression Ass essment [facility] Start: 2017 Respiratory Syncytia l Virus (RSV) or age 60 yrs+ (1 - 1-dose 75+ series) Respiratory Syncytial Virus (RSV) or age 60 yrs+ (1 - 1-dose 75+ series) [facility] Start: 03-31-2016 Pneumococcal Vaccine : 65+ (2 - PPSV23 or PCV20) Pneumococcal Vaccine: 65+ (2 - PPSV23 or PCV20) [facility] Start: 03-31-2016 Pneumococcal Vaccine : 65+ Years (2 of 2 - PPSV23 or PCV20) Pneumococcal Vaccine: 65+ Years (2 of 2 - PPSV23 or PCV20) [facility] Start: 03-24-2016 Hepatitis B surface antibody level LDL Cholesterol [facility] Start: 09-24-2015 Hemoglobin A1c/Hemoglobin.total in Blood HbA1C [facility] Start: 08-01-2015 3 comp foot exam completed Diabetic Foot Exam [facility] Start: 07-25-2015 Hepatitis B screening Urine Albumin:Creatinine Ratio [facility] Start: 02-01-2015 Urine microalbumin profile DTaP,Tdap,Td Vaccine (1 - Tdap) [facility] Start: 10-24-2013 Shingles vaccine (2 of 3) Keyes gles vaccine (2 of 3) [facility] Start: 10-24-2013 Shingrix Vaccine (2 of 3) Keyes grix Vaccine (2 of 3) [facility] Start: 09-14-2012 Hepatitis C antibody , confirmatory test Dilated Retinal Exam [facility] Start: 2002 RSV Vaccine (1 - 1-d ose 60+ series) RSV Vaccine (1 - 1-dose 60+ series) [facility] Start: 1961 DTaP/Tdap/Td vaccine (1 - Tdap) DTaP/Tdap/Td vaccine (1 - Tdap) [facility] Start: 1960 Urine screening for protein Diabetic Alb to Cr ratio (uACR) test [facility] Start: 1954 Depression Screen Depression Screen [facility] Start: 1952 Lipid panel Lipids [facility] Start: 1942 Covid-19 Vaccine (#1) Covid-19 Vacci ne (#1) [facility] End: 06-19-2025 Baseline Routine EEG Baseline Routine EEG Neurology Routine Once for 1 Occurrences starting 06/19/2025 until 06/19/2025 [facility] Comment on above: Once for 1 Occurrenc es starting 06/19/2025 until 06/19/2025 End: 06-13-2025 Basic metabolic 2000 panel - Serum or Plasma Basic Metabolic Panel Lab Routine Tomorrow AM for 10 Occurrences starting 06/04/2025 until 06/13/2025, 1 completed [facility] Comment on above: Tomorrow AM for 10 O ccurrences starting 06/04/2025 until 06/13/2025, 1 completed Basic metabolic 2000 panel - Serum or Plasma Basic Metabolic Panel Lab Routine Lab max of 3 days, Daily, for lab use only until discontinued starting 06/18/2025, 6 completed [facility] Comment on above: Lab max of 3 days, D aily, for lab use only until discontinued starting 06/18/2025, 6 completed End: 06-25-2025 Blood count hemoglobin Hemoglobin Lab Routine Every Other Day for 3 Days starting 06/23/2025 until 06/25/2025 [facility] Comment on above: Every Other Day for 3 Days starting 06/23/2025 until 06/25/2025 CBC W Auto Different ial panel - Blood CBC auto differential Lab Routine Lab max of 3 days, Daily, for lab use only until discontinued starting 06/17/2025, 7 completed [facility] Comment on above: Lab max of 3 days, D aily, for lab use only until discontinued starting 06/17/2025, 7 completed Continuous pulse oximetry Pulse oximetry, continuous Respiratory Care Routine Every 4hr until discontinued starting 06/02/2025 [facility] Comment on above: Every 4hr until disc ontinued starting 06/02/2025 End: 06-08-2025 Electrolyte Panel Electrolyte Panel Lab Routine Every 8 Hours (Lab) for 3 Days starting 06/05/2025 until 06/08/2025, 1 completed [facility] Work Phone: Comment on above: Every 8 Hours (Lab) for 3 Days starting 06/05/2025 until 06/08/2025, 1 completed End: 06-25-2025 Electrolyte panel Electrolyte panel Lab Routine Lab max of 3 days, Every 8hr, lab use only for 3 Days starting 06/22/2025 until 06/25/2025, 2 completed [employer] Work Phone: Comment on above: Lab max of 3 days, E very 8hr, lab use only for 3 Days starting 06/22/2025 until 06/25/2025, 2 completed Glucose [Mass/volume ] in Serum or Plasma [facility] Comment on above: As Needed until disc ontinued starting 06/02/2025 4X Daily (AC & HS) u ntil discontinued starting 06/02/2025 End: 06-23-2025 Holter monitor study EEG Video Monitoring Daily Neurology Routine Lab max of 3 days, Daily, for lab use only for 5 Occurrences starting 06/19/2025 until 06/23/2025, 1 completed [facility] Comment on above: Lab max of 3 days, D aily, for lab use only for 5 Occurrences starting 06/19/2025 until 06/23/2025, 1 completed Holter monitor study EEG Video M onitoring Daily Neurology Routine 06/20/2025 6:06 PM EDT [facility] Magnesium [Mass/volu me] in Serum or Plasma Magnesium Lab Routine Lab max of 3 days, Daily, for lab use only until discontinued starting 06/23/2025, 1 completed [facility] Comment on above: Lab max of 3 days, D aily, for lab use only until discontinued starting 06/23/2025, 1 completed End: 06-23-2025 Magnesium [Mass/volume] in Serum or Plasma Magnesium Lab Routine Once for 1 Occurrences starting 06/23/2025 until 06/23/2025 [employer] Work Phone: Comment on above: Once for 1 Occurrenc es starting 06/23/2025 until 06/23/2025 Nasal Cannula Oxygen Nasal Cannu la Oxygen Respiratory Care Routine Daily until discontinued starting 06/05/2025 [facility] Comment on above: Daily until disconti nued starting 06/05/2025 Oxygen Therapy - Carly ntain SpO2: 90%; *JOINTER MACHINE OPERATOR Guidelines for O2: Yes; Document: \phsi.promedica.Causata\epic \EPIC_Reference\Orders\Re spiratory Care Guidelines\CPG Oxygen 2022.pdf Oxygen Therapy - Maintain SpO2: 90%; *JOINTER MACHINE OPERATOR Guidelines for O2: Yes; Document: \LiveOffice.KartoonArt.Causata\e pic\EPIC_Reference\Ord ers\Respiratory Care Guidelines\CPG Oxygen 2022.pdf Respiratory Care Routine As Needed until discontinued starting 06/17/2025 [employer] Work Phone: Comment on above: As Needed until disc ontinued starting 06/17/2025 Oxygen therapy [[facility] Data Set] Initiate Oxygen Therapy Protocol Respiratory Care Routine As Needed until discontinued starting 06/02/2025 [facility] Work Phone: Comment on above: As Needed until disc ontinued starting 06/02/2025 Patient Education Low-fiber diet Know your Meds [facility] Work Phone: Patient referral [facility] Work Phone: End: 06-24-2025 Platelets [#/volume] in Blood Platelet count Lab Routine Every Third Day for 3 Days starting 06/24/2025 until 06/24/2025 [facility] Comment on above: Every Third Day for 3 Days starting 06/24/2025 until 06/24/2025 Protime & INR Protime & INR La b Routine Daily until discontinued starting 06/19/2025, 4 completed [facility] Comment on above: Daily until disconti nued starting 06/19/2025, 4 completed End: 06-12-2025 Protime-INR Protime-INR Lab Routine Daily for 8 Days starting 06/05/2025 until 06/12/2025, 1 completed [facility] Comment on above: Daily for 8 Days sta rting 06/05/2025 until 06/12/2025, 1 completed End: 06-02-2025 Respiratory care evaluation only Respiratory care evaluation only Respiratory Care Routine One Time for 1 Occurrences starting 06/02/2025 until 06/02/2025 [employer] Comment on above: One Time for 1 Occur rences starting 06/02/2025 until 06/02/2025 [facility] Immunizations Immunization Date Immunization Notes Care Provider [facility] 09-29-2024 influenza, high dose seasonal, preservative-free Erika Crisostomo MD Work Phone: [facility] 09-29-2024 influenza virus vaccine, unspecified formulation Axel Hernández DO Work Phone: [facility] 09-21-2023 Prevnar 20 Jada Rene Other [facility] 08-19-2023 Covid-19, Mrna, Lnp- s, Pf,brigette-sucrose,30 Mcg/0.3ml Seasonal Erika Crisostomo MD Work Phone: [facility] 08-19-2023 Flu Shot - Documentation Purposes Only Jadaendy Rene Other [employer] Other 08-19-2023 influenza virus vaccine, unspecified formulation Edwin Garcia [facility] 08-14-2022 influenza, seasonal, injectable Jadaendy Rene Other [facility] 03-31-2021 Influenza, High-dose , Quadrivalent Erika Crisostomo MD Work Phone: [facility] 03-31-2015 pneumococcal conjuga te vaccine, 13 valent Jada Rene Other [facility] 08-02-2014 influenza, high dose seasonal, preservative-free Venessa Riggins RN [facility] 08-02-2014 influenza virus vaccine, unspecified formulation Venessa Riggins RN [facility] 08-29-2013 zoster vaccine, live Venessa terrell RN [facility] 08-09-2013 influenza virus vaccine, unspecified formulation Venessa Riggins RN [facility] 07-31-2012 influenza virus vaccine, unspecified formulation Venessa Riggins RN [facility] Work Phone: 03-07-2012 TD(adult) unspecifie d formulation Erika Crisostomo MD Work Phone: [facility] 03-07-2012 tetanus and diphther ia toxoids, adsorbed, preservative free, for adult use (2 Lf of tetanus toxoid and 2 Lf of diphtheria toxoid) Venessa Riggins RN [facility] Work Phone: 08-07-2011 influenza virus vaccine, unspecified formulation Venessa Riggins RN [facility] Work Phone: NEGATED: Highlighted row has not occurred!08-28-2024 influenza virus vaccine, unspecified formulation Davie Hudsonanahi [facility] [place] Payers Date Payer Category Payer Medicare [id number] 2025 Self-pay 2025 Private Health Insurance [id number] 2025 Medicaid [employer] MEDICARE A DVANTAGE [id number] 2025 Medicare HMO [employer] MEDICARE [id number] 2025 Private Health Insurance [id number] 2023 Medicare (Managed Care) [employer] [id number] 2023 Unknown [employer] [facility] [id number] 2023-Present [address] [place] [address] [id number]. [id number] 2023 Unknown [id number] 2.16.840.1.046378.19 2023 Medicare [id number]. 1.13.159.2. [id number] 1942 Unknown [id number] 2.16.840.1.536480.3.579.2. 196 1942 Unknown [id number] 2.16.840.1.271656.3.579.2. 727 1942 Unknown [id number] 2.16.840.1.980600.3.579.2. 727 1942 Unknown [id number] 2.16.840.1.333670.3.579.2. 727 1942 Unknown [id number] 2.16.840.1.946487.3.579.2. 727 1942 Unknown [id number] 2.16.840.1.599284.3.579.2. 1259 1942 Unknown [id number] 2.16.840.1.765835.3.579.2. 1258 1942 Unknown [id number] 2.16.840.1.336950.3.579.2. 1258 1942 Unknown [id number] 2.16.840.1.941473.3.579.2. 1258 1942 Unknown [id number] 2.16.840.1.148403.3.579.2. 1258 1942 Unknown [id number] 2.16.840.1.912265.3.579.2. 1258 1942 Unknown [id number] 2.16.840.1.880291.3.579.2. 1258 1942 Unknown [id number] 2.16.840.1.249660.3.579.2. 1258 1942 Unknown [id number] 2.16.840.1.138089.3.579.2. 1258 1942 Unknown [id number] 2.16.840.1.651107.3.579.2. 1942 Unknown [id number] 2.16.840.1.338528.3.579.2. 1942 Unknown [id number] 2.16.840.1.290335.3.579.2. 1942 Unknown [id number] 2.16.840.1.334479.3.579.2 1942 Unknown [id number] 2.16.840.1.062670.3.579.2. 1942 Unknown [id number] 2.16.840.1.806156.3.579.2 1942 Unknown [id number] 2.16.840.1.208698.3.579.2. 1942 Unknown [id number] 2.16.840.1.885245.3.579.2. 727 1942 Unknown [id number] 2.16.840.1.282230.3.579.2. 72 1942 Unknown [id number] 2.16.840.1.675812.3.579.2. 72 1942 Unknown [id number] 2.16.840.1.083498.3.579.2. 72 1942 Unknown [id number] 2.16.840.1.907470.3.579.2. 72 1942 Unknown [id number] 2.16.840.1.156147.3.579.2. 1942 Unknown [id number] 2.16.840.1.297776.3.579.2. 1942 Unknown [id number] 2.16.840.1.778681.3.579.2. 1942 Unknown [id number] 2.16.840.1.432828.3.579.2. 1942 Unknown [id number] 2.16.840.1.056194.3.579.2. 1942 Unknown [id number] 2.16.840.1.108819.3.579.2. 175 1942 Unknown [id number] 2.16.840.1.735945.3.579.2. 72 1942 Unknown [id number] 2.16.840.1.641336.3.579.2. 72 1942 Unknown [id number] 2.16.840.1.253416.3.579.2. 1942 Unknown [id number] 2.16.840.1.962860.3.579.2. 72 1942 Unknown [id number] 2.16.840.1.245886.3.579.2. 72 1942 Unknown [id number] 2.16.840.1.670036.3.579.2. 72 1942 Unknown [id number] 2.16.840.1.522859.3.579.2. 1942 Unknown [id number] 2.16.840.1.529601.3.579.2. 1942 Unknown [id number] 2.16.840.1.563424.3.579.2. 1942 Unknown [id number] 2.16.840.1.116029.3.579.2. 1942 Unknown [id number] 2.16.840.1.837627.3.579.2. 1942 Unknown [id number] 2.16.840.1.445540.3.579.2. 1942 Unknown [id number] 2.16.840.1.009726.3.579.2. 1942 Unknown [id number] 2.16.840.1.721231.3.579.2. 1942 Unknown [id number] 2.16.840.1.396084.3.579.2. 1942 Unknown [id number] 2.16.840.1.921961.3.579.2. 1942 Unknown [id number] 2.16.840.1.097413.3.579.2. 1942 Unknown [id number] 2.16.840.1.270366.3.579.2. 1942 Unknown [id number] 2.16.840.1.646804.3.579.2. 1942 Unknown [id number] 2.16.840.1.304274.3.579.2. 1942 Unknown [id number] 2.16.840.1.735217.3.579.2. 727 1942 Unknown [id number] 2.16.840.1.083316.3.579.2. 727 1942 Unknown [id number] 2.16.840.1.476656.3.579.2. 727 1942 Unknown [id number] 2.16.840.1.219071.3.579.2. 727 1942 Unknown [id number] 2.16.840.1.895253.3.579.2. 727 Medicare [id number] 2.16.840.1.412700.19 Medicare [id number] 2.16.840.1.127903.19 Unknown [id number] 2.16.840.1.624958.3.579.2. 531 Social History Date Type Detail Facility Start: 06-20-2024 End: 11-28-2024 Sex Assigned At [facility] Start: 12-01-2023 End: 07-22-2025 Tobacco smoking status MOIS Never smoked tobacco [facility] Comment on above: denies use. Start: 06-28-2022 Alcohol intake Current drinke r of alcohol (finding) [facility] Start: 06-28-2022 End: 11-28-2024 Alcohol intake [facility] Start: 1940 Sex Assigned At Not on file [facility] Tobacco smoking status Never [facility] [place] Comment on above: denies use. Start: 02-15-2024 End: 06-17-2025 Tobacco use and exposure Smokeless tobacco non-user [facility] Sexual Orientation [facility] Start: 03-27-2015 End: 08-22-2023 Sex Male (finding) [facility] Start: 06-02-2025 Alcoholic beverage intake Lifetime non-drinker (finding) [employer] Has the [employer], [employer], or [employer] threatened to shut off services in your home in past 12Mo [place] [employer] (I/We) worried wheshaheen er (my/our) food would run out before (I/we) got money to buy more. Never true [employer] Start: 06-17-2025 Alcoholic beverage intake Ex-drinker (finding) [facility] How often to you hav e a drink containing alcohol? Never [facility] [employer] [facility] Start: 1940 Sex Assigned At Male [facility] Start: 07-22-2025 SDOH Follow up SDOH Follow up [facility] Work Phone: Medical Equipment Procedure Code [...] Evaluation of progress towards goal: Home with [facility] Functional Status Date Assessment Result Facility 06-17-2025 Total score [AUDIT-C] 0 06/17/20 25 4:54 PM EDT Monico Cuellar, ERIN [facility] 10-30-2024 Functional Status No [facility] 08-28-2024 Functional Status N/A [facility] [place] 06-11-2024 Functional Status N/A [facility] 05-30-2024 Functional Status No [facility] 04-20-2024 Functional Status N/A [facility] 03-06-2024 Functional Status No [facility] Mental Status Date Assessment Result Facility [facility] Clinical Notes 03-10-2010 to 07-25-2025 [...] these instructions at home: Medicines ??? Take amxd-emz-cjvtvkn and prescription medicines only as told by [...] away. Get medica (more content not included)... 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 Biking. ? Swimming. Medicines ??? Take tvzl-efs-zuccrax and prescription medicines only as told by your doctor. ??? Avoid taking control pills. Talk to your doctor about the risks of taking control pills if: ? You are over 35 years old. ? You smoke. ? You get very bad headaches. ? You have had a blood clot. Where to find more information ??? [place] [employer]: www.strokeassociation.org Get help right away [...] what people say. ? (more content not included)...[facility]08-21-2025 Note Patient Education Nephrology Hyponatremia [...] Follow these instructions at home: ??? Take gfns-rdm-opszlhz and prescription medicines only as told by [...] provider. Document Revised: 05/11/2022 Document Reviewed: 05/11/2022 [employer] Patient Education ? 2023 [employer] 06-23-2025 Nurse Note* Debra Huggins RN - 06/23/2025 3:01 PM EDT Patient discharged to the [facility] at this time. Report called and questions addressed. PIV and tele discontinued. All personal belongings packed and left with patient. Report given to transport as well. No other concerns at this time. Left on stretcher [facility]08-10-2025 Nurse Note* Debra Huggins RN - 06/23/2025 3:01 PM EDT Patient discharged to the [facility] at this time. Report called [...] name. Assisted to chair. Dr Crisostomo paged. * Deepali Mathew RN - 06/19/2025 10:55 [...] Notified ofQT from EKG done 06/17 at [place]. [facility] Plan of care note * Plan of Care - Debra Huggins RN - 06/23/2025 11:02 AM EDT Problem: Pain Goal: Patient goal is pain score less than 4, able to rest, and participant in treatment plan as appropriate Description: INTERVENTIONS: 1. Encourage patient or legal tax representative to report early pain and ask [...] per policy 9. Teach patient or legal tax representative interventions for comforting Outcome: Adequate for [...] at the bedside 7. Instruct patient/ patient tax representative about use of safety devices 8. Include patient/ patient tax representative in decisions related to safety Outcome: [...] hygiene technique. 7. Identify and instruct patient/patient tax representative in use of appropriate isolation precautionsfor identified infection/symptoms. 8. Provide and discuss with patient/patient tax representative on educational MDRO sheet. 9. Encourage and monitor nutritional status daily and consult stations superintendent if indicated. 10. Implement neutropenic guidelines as needed. Outcome: Adequate for Discharge Problem: Knowledge Deficit Goal: Patient/patient tax representative demonstrates understanding of disease process, treatment [...] supplement as ordered 13. Collaborate with clinical stations superintendent 14. Include patient/ patient's tax representative in decisions related to nutrition Outcome: [...] develop effective communication strategies 4. Include patient/patient tax representative in decisions related to communication Outcome: [...] Collaborate with ancillary departments 14. Include patient/patient tax representative in decisions related to anxiety Outcome: [...] care 6. Collaborate with pastoral/spiritual care, social sciences lecturer, mental health counselor as needed. 7. Instruct patient on diversional activities such as physical activity, distraction, and deep breathing exercises to assist with coping 8. Involve patient's tax representative in care Outcome: Adequate for Discharge [...] Score of =/> 25 or indicated by [facility] Assessment Goal: Patient should be free from fall Description: Interventions: 1. [place] to environment 2. Hourly rounds addressing the [...] non-skid footwear 11. Teach patient and patient tax representative to maintain environment for safety and [...] (cane, walker) within reach 19. Request patient tax representative bring adaptive equipment/mobility aids from home or obtain and provide as needed 20. Consult pharmacy regarding effects of med's affecting mobility, cognition, and alternatives 21. Obtain physician order for PT if risk factors associated with mobility are present 22. Obtain physician order for OT as appropriate 23. Utilize diversional activities 24. Educate patient and patient tax representative how to maintain a safe environment during visitationtimes (notify nurse prior to leaving bedside) 25. Consider appropriateness of medical or non-chief medical officer 26. Set up voiding schedule as appropriate (every 2 hours) Outcome: Adequate for Discharge [facility] [employer] [id number] Miscellaneous Notes* Plan of Care - Debra Huggins RN - 06/23/2025 11:02 AM EDT Problem: Pain Goal: Patient goal is pain score less than 4, able to rest, and participant in treatment plan as appropriate Description: INTERVENTIONS: 1. Encourage patient or legal tax representative to report early pain and ask [...] per policy 9. Teach patient or legal tax representative interventions for comforting Outcome: Adequate for [...] at the bedside 7. Instruct patient/ patient tax representative about use of safety devices 8. Include patient/ patient tax representative in decisions related to safety Outcome: [...] hygiene technique. 7. Identify and instruct patient/patient tax representative in use of appropriate isolation precautionsfor identified infection/symptoms. 8. Provide and discuss with patient/patient tax representative on educational MDRO sheet. 9. Encourage and monitor nutritional status daily and consult stations superintendent if indicated. 10. Implement neutropenic guidelines as needed. Outcome: Adequate for Discharge Problem: Knowledge Deficit Goal: Patient/patient tax representative demonstrates understanding of disease process, treatment [...] supplement as ordered 13. Collaborate with clinical stations superintendent 14. Include patient/ patient's tax representative in decisions related to nutrition Outcome: [...] develop effective communication strategies 4. Include patient/patient tax representative in decisions related to communication Outcome: [...] Collaborate with ancillary departments 14. Include patient/patient tax representative in decisions related to anxiety Outcome: [...] care 6. Collaborate with pastoral/spiritual care, social sciences lecturer, mental health counselor as needed. 7. Instruct patient on diversional activities such as physical activity, distraction, and deep breathing exercises to assist with coping 8. Involve patient's tax representative in care Outcome: Adequate for Discharge [...] Score of =/> 25 or indicated by [facility] Assessment Goal: Patient should be free from fall Description: Interventions: 1. [place] to environment 2. Hourly rounds addressing the [...] non-skid footwear 11. Teach patient and patient tax representative to maintain environment for safety and [...] (cane, walker) within reach 19. Request patient tax representative bring adaptive equipment/mobility aids from home or obtain and provide as needed 20. Consult pharmacy regarding effects of med's affecting mobility, cognition, and alternatives 21. Obtain physician order for PT if risk factors associated with mobility are present 22. Obtain physician order for OT as appropriate 23. Utilize diversional activities 24. Educate patient and patient tax representative how to maintain a safe environment during visitationtimes (notify nurse prior to leaving bedside) 25. Consider appropriateness of medical or non-chief medical officer 26. Set up voiding schedule as appropriate (every 2 hours) Outcome: Adequate for Discharge * Discharge Planning Note - Hellen Brady - 06/23/2025 10:54 AM EDT DISCHARGE PLANNING NOTE BLS via PTN scheduled for today 06/23/25 at 1 PM to [facility]. Confirmed in [facility]. * Discharge Planning Note - CHARLES Lee - 06/23/2025 10:39 AM EDT DISCHARGE PLANNING NOTE Discharge written, CRF complete. Social work task [facility] to arrange BLS transport- wait confirmed time. [facility] notified of discharge and CRF sent. HENS [...] Description: INTERVENTIONS: 1. Encourage patient or legal tax representative to report early pain and ask [...] per policy 9. Teach patient or legal tax representative interventions for comforting 06/23/2025 0628 by [...] at the bedside 7. Instruct patient/ patient tax representative about use of safety devices 8. Include patient/ patient tax representative in decisions related to safety Outcome: [...] hygiene technique. 7. Identify and instruct patient/patient tax representative in use of appropriate isolation precautionsfor identified infection/symptoms. 8. Provide and discuss with patient/patient tax representative on educational MDRO sheet. 9. Encourage and monitor nutritional status daily and consult stations superintendent if indicated. 10. Implement neutropenic guidelines as needed. Outcome: Progressing Note: Evaluation of progress towards goal: Standard precaution maintained Problem: Knowledge Deficit Goal: Patient/patient tax representative demonstrates understanding of disease process, treatment [...] supplement as ordered 13. Collaborate with clinical stations superintendent 14. Include patient/ patient's tax representative in decisions related to nutrition Outcome: [...] develop effective communication strategies 4. Include patient/patient tax representative in decisions related to communication Outcome: [...] Collaborate with ancillary departments 14. Include patient/patient tax representative in decisions related to anxiety Outcome: [...] care 6. Collaborate with pastoral/spiritual care, social sciences lecturer, mental health counselor as needed. 7. Instruct patient on diversional activities such as physical activity, distraction, and deep breathing exercises to assist with coping 8. Involve patient's tax representative in care Outcome: Progressing Note: Evaluation [...] Score of =/> 25 or indicated by [facility] Assessment Goal: Patient should be free from fall Description: Interventions: 1. [place] to environment 2. Hourly rounds addressing the [...] non-skid footwear 11. Teach patient and patient tax representative to maintain environment for safety and [...] (cane, walker) within reach 19. Request patient tax representative bring adaptive equipment/mobility aids from home or obtain and provide as needed 20. Consult pharmacy regarding effects of med's affecting mobility, cognition, and alternatives 21. Obtain physician order for PT if risk factors associated with mobility are present 22. Obtain physician order for OT as appropriate 23. Utilize diversional activities 24. Educate patient and patient tax representative how to maintain a safe environment during visitationtimes (notify nurse prior to leaving bedside) 25. Consider appropriateness of medical or non-chief medical officer 26. Set up voiding schedule as appropriate (every 2 hours) Outcome: Progressing Note: Evaluation of progress towards goal: Fall bundles maintained * Plan of Care - Debra Huggins RN - 06/22/2025 2:18 PM EDT Problem: Pain Goal: Patient goal is pain score less than 4, able to rest, and participant in treatment plan as appropriate Description: INTERVENTIONS: 1. Encourage patient or legal tax representative to report early pain and ask [...] per policy 9. Teach patient or legal tax representative interventions for comforting Outcome: Progressing Note: [...] at the bedside 7. Instruct patient/ patient tax representative about use of safety devices 8. Include patient/ patient tax representative in decisions related to safety Outcome: [...] hygiene technique. 7. Identify and instruct patient/patient tax representative in use of appropriate isolation precautionsfor identified infection/symptoms. 8. Provide and discuss with patient/patient tax representative on educational MDRO sheet. 9. Encourage and monitor nutritional status daily and consult stations superintendent if indicated. 10. Implement neutropenic guidelines as needed. Outcome: Progressing Note: Evaluation of progress towards goal: continue to monitor labs, vitals, tele, IV site Problem: Knowledge Deficit Goal: Patient/patient tax representative demonstrates understanding of disease process, treatment [...] supplement as ordered 13. Collaborate with clinical stations superintendent 14. Include patient/ patient's tax representative in decisions related to nutrition Outcome: [...] develop effective communication strategies 4. Include patient/patient tax representative in decisions related to communication Outcome: Progressing Note: Evaluation of progress towards goal: [place], speak loudly and understands Problem: Potential for [...] Collaborate with ancillary departments 14. Include patient/patient tax representative in decisions related to anxiety Outcome: [...] care 6. Collaborate with pastoral/spiritual care, social sciences lecturer, mental health counselor as needed. 7. Instruct patient on diversional activities such as physical activity, distraction, and deep breathing exercises to assist with coping 8. Involve patient's tax representative in care Outcome: Progressing Note: Evaluation [...] Progressing Note: Evaluation of progress towards goal: [facility] [place] Problem: Moderate - High Risk Fall Score Description: [place] Fall Score of =/> 25 or indicated by [facility] Assessment Goal: Patient should be free from fall Description: Interventions: 1. [place] to environment 2. Hourly rounds addressing the [...] non-skid footwear 11. Teach patient and patient tax representative to maintain environment for safety and [...] (cane, walker) within reach 19. Request patient tax representative bring adaptive equipment/mobility aids from home or obtain and provide as needed 20. Consult pharmacy regarding effects of med's affecting mobility, cognition, and alternatives 21. Obtain physician order for PT if risk factors associated with mobility are present 22. Obtain physician order for OT as appropriate 23. Utilize diversional activities 24. Educate patient and patient tax representative how to maintain a safe environment during visitationtimes (notify nurse prior to leaving bedside) 25. Consider appropriateness of medical or non-chief medical officer 26. Set up voiding schedule as appropriate (every 2 hours) Outcome: Progressing Note: Evaluation of progress towards goal: no falls; syncopal episode per notes 06/21; up with assistonly; high fall risk - maintain precautions * Discharge Planning Note - Norma Ritter - 06/22/2025 12:42 PM EDT DISCHARGE PLANNING NOTE Prior Auth approved for admission to : [facility] (P# [phone] ; F# ) Approval # [id number] Valid for Dates: 06/22/2025 - 06/28/2025 * Discharge Planning Note - Norma Ritter - 06/22/2025 10:39 AM EDT DISCHARGE PLANNING NOTE Prior auth submitted to: [employer] Medicare Via: [employer] On behalf of : [facility] (P# ; F# ) Ref# [id number] * Discharge Planning Note - CHARLES Lee - 06/22/2025 10:15 AM EDT DISCHARGE PLANNING NOTE Case discussed in daily transition rounds and chart reviewed by CN. Discharge Plan remains: [facility]. [facility] accepting referral. Social work contacted to inform of above and she was pleased with the news. is looking for patient's SSN. Social work task [facility] to start precert. CN will continue to follow and is available should any further needs arise. - CHARLES LEE 06/22/25 10:15 AM Insurance approved SNF stay. Patient is tentatively discharged tomorrow. Social work sent a [facility] to inform of tentative discharge date. [...] Description: INTERVENTIONS: 1. Encourage patient or legal tax representative to report early pain and ask [...] per policy 9. Teach patient or legal tax representative interventions for comforting Outcome: Progressing Note: [...] at the bedside 7. Instruct patient/ patient tax representative about use of safety devices 8. Include patient/ patient tax representative in decisions related to safety Outcome: [...] hygiene technique. 7. Identify and instruct patient/patient tax representative in use of appropriate isolation precautionsfor identified infection/symptoms. 8. Provide and discuss with patient/patient tax representative on educational MDRO sheet. 9. Encourage and monitor nutritional status daily and consult stations superintendent if indicated. 10. Implement neutropenic guidelines as needed. Outcome: Progressing Note: Evaluation of progress towards goal: Pt has no s/s of infection, standard precaution maintained Problem: Knowledge Deficit Goal: Patient/patient tax representative demonstrates understanding of disease process, treatment [...] supplement as ordered 13. Collaborate with clinical stations superintendent 14. Include patient/ patient's tax representative in decisions related to nutrition Outcome: [...] develop effective communication strategies 4. Include patient/patient tax representative in decisions related to communication Outcome: [...] Collaborate with ancillary departments 14. Include patient/patient tax representative in decisions related to anxiety Outcome: [...] care 6. Collaborate with pastoral/spiritual care, social sciences lecturer, mental health counselor as needed. 7. Instruct patient on diversional activities such as physical activity, distraction, and deep breathing exercises to assist with coping 8. Involve patient's tax representative in care Outcome: Progressing Note: Evaluation [...] Score of =/> 25 or indicated by [facility] Assessment Goal: Patient should be free from fall Description: Interventions: 1. [place] to environment 2. Hourly rounds addressing the [...] non-skid footwear 11. Teach patient and patient tax representative to maintain environment for safety and [...] (cane, walker) within reach 19. Request patient tax representative bring adaptive equipment/mobility aids from home or obtain and provide as needed 20. Consult pharmacy regarding effects of med's affecting mobility, cognition, and alternatives 21. Obtain physician order for PT if risk factors associated with mobility are present 22. Obtain physician order for OT as appropriate 23. Utilize diversional activities 24. Educate patient and patient tax representative how to maintain a safe environment during visitationtimes (notify nurse prior to leaving bedside) 25. Consider appropriateness of medical or non-chief medical officer 26. Set up voiding schedule as appropriate (every 2 hours) Outcome: Progressing Note: Evaluation of progress towards goal: Fall bundles maintained * Plan of Care - Lauren Gaona RN - 06/21/2025 6:18 PM EDT Problem: Knowledge Deficit Goal: Patient/patient tax representative demonstrates understanding of disease process, treatment [...] for adl's Problem: Knowledge Deficit Goal: Patient/patient tax representative demonstrates understanding of disease process, treatment [...] Description: INTERVENTIONS: 1. Encourage patient or legal tax representative to report early pain and ask [...] per policy 9. Teach patient or legal tax representative interventions for comforting Outcome: Progressing Note: [...] at the bedside 7. Instruct patient/ patient tax representative about use of safety devices 8. Include patient/ patient tax representative in decisions related to safety Outcome: [...] hygiene technique. 7. Identify and instruct patient/patient tax representative in use of appropriate isolation precautionsfor identified infection/symptoms. 8. Provide and discuss with patient/patient tax representative on educational MDRO sheet. 9. Encourage and monitor nutritional status daily and consult stations superintendent if indicated. 10. Implement neutropenic guidelines as [...] supplement as ordered 13. Collaborate with clinical stations superintendent 14. Include patient/ patient's tax representative in decisions related to nutrition Outcome: [...] develop effective communication strategies 4. Include patient/patient tax representative in decisions related to communication Outcome: [...] Collaborate with ancillary departments 14. Include patient/patient tax representative in decisions related to anxiety Outcome: [...] care 6. Collaborate with pastoral/spiritual care, social sciences lecturer, mental health counselor as needed. 7. Instruct patient on diversional activities such as physical activity, distraction, and deep breathing exercises to assist with coping 8. Involve patient's tax representative in care Outcome: Progressing Note: Evaluation [...] Score of =/> 25 or indicated by [facility] Assessment Goal: Patient should be free from fall Description: Interventions: 1. [place] to environment 2. Hourly rounds addressing the [...] non-skid footwear 11. Teach patient and patient tax representative to maintain environment for safety and [...] (cane, walker) within reach 19. Request patient tax representative bring adaptive equipment/mobility aids from home or obtain and provide as needed 20. Consult pharmacy regarding effects of med's affecting mobility, cognition, and alternatives 21. Obtain physician order for PT if risk factors associated with mobility are present 22. Obtain physician order for OT as appropriate 23. Utilize diversional activities 24. Educate patient and patient tax representative how to maintain a safe environment during visitationtimes (notify nurse prior to leaving bedside) 25. Consider appropriateness of medical or non-chief medical officer 26. Set up voiding schedule as appropriate [...] Description: INTERVENTIONS: 1. Encourage patient or legal tax representative to report early pain and ask [...] per policy 9. Teach patient or legal tax representative interventions for comforting Outcome: Progressing Note: [...] at the bedside 7. Instruct patient/ patient tax representative about use of safety devices 8. Include patient/ patient tax representative in decisions related to safety Outcome: [...] hygiene technique. 7. Identify and instruct patient/patient tax representative in use of appropriate isolation precautionsfor identified infection/symptoms. 8. Provide and discuss with patient/patient tax representative on educational MDRO sheet. 9. Encourage and monitor nutritional status daily and consult stations superintendent if indicated. 10. Implement neutropenic guidelines as [...] supplement as ordered 13. Collaborate with clinical stations superintendent 14. Include patient/ patient's tax representative in decisions related to nutrition Outcome: [...] develop effective communication strategies 4. Include patient/patient tax representative in decisions related to communication Outcome: [...] Collaborate with ancillary departments 14. Include patient/patient tax representative in decisions related to anxiety Outcome: [...] care 6. Collaborate with pastoral/spiritual care, social sciences lecturer, mental health counselor as needed. 7. Instruct patient on diversional activities such as physical activity, distraction, and deep breathing exercises to assist with coping 8. Involve patient's tax representative in care Outcome: Progressing Note: Evaluation [...] be free from fall Description: Interventions: 1. [place] to environment 2. Hourly rounds addressing the [...] non-skid footwear 11. Teach patient and patient tax representative to maintain environment for safety and [...] (cane, walker) within reach 19. Request patient tax representative bring adaptive equipment/mobility aids from home or obtain and provide as needed 20. Consult pharmacy regarding effects of med's affecting mobility, cognition, and alternatives 21. Obtain physician order for PT if risk factors associated with mobility are present 22. Obtain physician order for OT as appropriate 23. Utilize diversional activities 24. Educate patient and patient tax representative how to maintain a safe environment during visitationtimes (notify nurse prior to leaving bedside) 25. Consider appropriateness of medical or non-chief medical officer 26. Set up voiding schedule as appropriate (every 2 hours) Outcome: Progressing Note: Evaluation of progress towards goal: free of fall this shift Problem: Pain Goal: Patient goal is pain score less than 4, able to rest, and participant in treatment plan as appropriate Description: INTERVENTIONS: 1. Encourage patient or legal tax representative to report early pain and ask [...] per policy 9. Teach patient or legal tax representative interventions for comforting Outcome: Progressing Note: [...] at the bedside 7. Instruct patient/ patient tax representative about use of safety devices 8. Include patient/ patient tax representative in decisions related to safety Outcome: [...] at the bedside 7. Instruct patient/ patient tax representative about use of safety devices 8. Include patient/ patient tax representative in decisions related to safety Outcome: [...] hygiene technique. 7. Identify and instruct patient/patient tax representative in use of appropriate isolation precautionsfor identified infection/symptoms. 8. Provide and discuss with patient/patient tax representative on educational MDRO sheet. 9. Encourage and monitor nutritional status daily and consult stations superintendent if indicated. 10. Implement neutropenic guidelines as [...] supplement as ordered 13. Collaborate with clinical stations superintendent 14. Include patient/ patient's tax representative in decisions related to nutrition Outcome: [...] develop effective communication strategies 4. Include patient/patient tax representative in decisions related to communication Outcome: [...] Collaborate with ancillary departments 14. Include patient/patient tax representative in decisions related to anxiety Outcome: [...] Score of =/> 25 or indicated by [facility] Assessment Goal: Patient should be free from fall Description: Interventions: 1. [place] to environment 2. Hourly rounds addressing the [...] non-skid footwear 11. Teach patient and patient tax representative to maintain environment for safety and [...] (cane, walker) within reach 19. Request patient tax representative bring adaptive equipment/mobility aids from home or obtain and provide as needed 20. Consult pharmacy regarding effects of med's affecting mobility, cognition, and alternatives 21. Obtain physician order for PT if risk factors associated with mobility are present 22. Obtain physician order for OT as appropriate 23. Utilize diversional activities 24. Educate patient and patient tax representative how to maintain a safe environment during visitationtimes (notify nurse prior to leaving bedside) 25. Consider appropriateness of medical or non-chief medical officer 26. Set up voiding schedule as appropriate [...] care 6. Collaborate with pastoral/spiritual care, social sciences lecturer, mental health counselor as needed. 7. Instruct patient on diversional activities such as physical activity, distraction, and deep breathing exercises to assist with coping 8. Involve patient's tax representative in care Outcome: Progressing Note: Evaluation of progress towards goal: no issues * Discharge Planning Note - Martina Mckeon - 06/21/2025 3:45 PM EDT DISCHARGE PLANNING NOTE Referral sent to [facility] (P# ; F# ) * Discharge Planning Note - Rohini Mcintyre RN - 06/21/2025 2:29 PM EDT 06/21/25 [id number] Services Requested Patient expects to be discharged to: SNF Does the patient wish to have family/friend/caregiver involved in their discharge planning? Yes Does the patient plan to return home to a community setting? No, patient to discharge to facility-based provider. See Discharge Disposition Discharge Disposition SNF Facility/Service Name NA SNF Name [facility] Does the patient need discharge transportation arranged? Yes Transportation Arranged Ambulance Mobility issues discussed with transportation provider Yes Patient choice offered Yes List Provided Yes [facility] List Provided [facility] Financial Disclosure Provided for In-Network Referral Yes DISCHARGE PLANNING NOTE CN spoke w pts , SNF choice is [facility]. She did n ot have a 2nd choice. CN asked her to review list for dditional choices. CN tasked for referral to [facility]. Barriers: SNFaccept. Will need precert. CTbrain.Rohini Mcintyre RN * Discharge Planning Note - Rohini Mcintyre RN - 06/21/2025 12:44 PM EDT DISCHARGE PLANNING NOTE PT/OT rec SNF. CN called and left Voicemail for pts . Pt not appropriate for [facility]. Need SNF choices. CN also sent SNF list Via careport to pts cell phone to select choices. Await response. Rohini Mcintyre RN * PT/OT/CMV DRIVER - LU Enriquez - 06/21/2025 9:58 AM [...] G Code Modifier: CK Modified chip index: 20 Occupational Profile Patient seen for OT eval on 06-19-2025. Patient now seen for OT re-eval to update goals due to improved level of alertness and ability to participate in therapy. Patient admitted with left side weakness and aphasia. 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 History of A-fib on coumadin and diabetic. Continue to recommend retirement facility. Patient with episode of decreased responsiveness with listing to the left while on commode for 1-2 minutes. Once alert patient was nauseated. RNLauren called to room. Patient assisted from toilet mireya and MD in room. See below for past medical and past surgical history. Past Medical History: Diagnosis Date Atrial fibrillation ([facility]) BPH (benign prostatic hyperplasia) Broken nose CVA (cerebral vascular accident) ([facility]) 06/17/2025 Diabetes ([facility]) Epistaxis Hypertension Hyponatremia secondary to SIADH Hypothyroid [...] Equipment: waker, chair alarm, gait belt, telemetry. Telemetry/Factory Process Workers: Yes Oxygen Used: room air Other: (S) [...] Patient will perform toilet transfers with Modified [place] Dates: Start: 06/21/25 Expected End: 07/19/25 Description: [...] CVA (cerebral vascular accident) ([facility]) * PT/OT/CMV DRIVER - Ayaan Campos, PT - 06/21/2025 9:56 [...] Past Medical History: Diagnosis Date Atrial fibrillation ([facility]) BPH (benign prostatic hyperplasia) Broken nose CVA (cerebral vascular accident) ([facility]) 06/17/2025 Diabetes ([facility]) Epistaxis Hypertension Hyponatremia secondary to SIADH Hypothyroid [...] gait belt, wheeled walker, IV, chair/bed alarm Telemetry/Factory Process Workers: Yes Oxygen Used: room air Other: (S) [...] CVA (cerebral vascular accident) ([facility]) * Plan of Care - Nicole Sparks RN - 06/20/2025 11:40 PM EDT Problem: Pain Goal: Patient goal is pain score less than 4, able to rest, and participant in treatment plan as appropriate Description: INTERVENTIONS: 1. Encourage patient or legal tax representative to report early pain and ask [...] per policy 9. Teach patient or legal tax representative interventions for comforting Outcome: Progressing Note: [...] at the bedside 7. Instruct patient/ patient tax representative about use of safety devices 8. Include patient/ patient tax representative in decisions related to safety Outcome: [...] hygiene technique. 7. Identify and instruct patient/patient tax representative in use of appropriate isolation precautionsfor identified infection/symptoms. 8. Provide and discuss with patient/patient tax representative on educational MDRO sheet. 9. Encourage and monitor nutritional status daily and consult stations superintendent if indicated. 10. Implement neutropenic guidelines as needed. Outcome: Progressing Note: Evaluation of progress towards goal: No s/s of infection at this time Problem: Knowledge Deficit Goal: Patient/patient tax representative demonstrates understanding of disease process, treatment [...] Score of =/> 25 or indicated by [facility] Assessment Goal: Patient should be free from fall Description: Interventions: 1. [place] to environment 2. Hourly rounds addressing the [...] non-skid footwear 11. Teach patient and patient tax representative to maintain environment for safety and [...] (cane, walker) within reach 19. Request patient tax representative bring adaptive equipment/mobility aids from home or obtain and provide as needed 20. Consult pharmacy regarding effects of med's affecting mobility, cognition, and alternatives 21. Obtain physician order for PT if risk factors associated with mobility are present 22. Obtain physician order for OT as appropriate 23. Utilize diversional activities 24. Educate patient and patient tax representative how to maintain a safe environment during visitationtimes (notify nurse prior to leaving bedside) 25. Consider appropriateness of medical or non-chief medical officer 26. Set up voiding schedule as appropriate (every 2 hours) Outcome: Progressing Note: Evaluation of progress towards goal: pt free from fall at this time Problem: Knowledge Deficit Goal: Patient/patient tax representative demonstrates understanding of disease process, treatment [...] will need updated PT/OT notes sent to [facility]. When pt/ot worked w him yesterday they [...] received a voice mail from Franc at [facility] phone [phone], she says she has left a few messages for an update for patient. This is the only vm I have received. Sending an Skemaz chat to Rohini / Viveinne / Mesha with information * Plan of Care - Nicloe Sparks RN - 06/19/2025 11:13 PM EDT Problem: Pain Goal: Patient goal is pain score less than 4, able to rest, and participant in treatment plan as appropriate Description: INTERVENTIONS: 1. Encourage patient or legal tax representative to report early pain and ask [...] per policy 9. Teach patient or legal tax representative interventions for comforting Outcome: Progressing Note: [...] at the bedside 7. Instruct patient/ patient tax representative about use of safety devices 8. Include patient/ patient tax representative in decisions related to safety Outcome: [...] hygiene technique. 7. Identify and instruct patient/patient tax representative in use of appropriate isolation precautionsfor identified infection/symptoms. 8. Provide and discuss with patient/patient tax representative on educational MDRO sheet. 9. Encourage and monitor nutritional status daily and consult stations superintendent if indicated. 10. Implement neutropenic guidelines as [...] supplement as ordered 13. Collaborate with clinical stations superintendent 14. Include patient/ patient's tax representative in decisions related to nutrition Outcome: [...] be free from fall Description: Interventions: 1. [place] to environment 2. Hourly rounds addressing the [...] non-skid footwear 11. Teach patient and patient tax representative to maintain environment for safety and [...] (cane, walker) within reach 19. Request patient tax representative bring adaptive equipment/mobility aids from home or obtain and provide as needed 20. Consult pharmacy regarding effects of med's affecting mobility, cognition, and alternatives 21. Obtain physician order for PT if risk factors associated with mobility are present 22. Obtain physician order for OT as appropriate 23. Utilize diversional activities 24. Educate patient and patient tax representative how to maintain a safe environment during visitationtimes (notify nurse prior to leaving bedside) 25. Consider appropriateness of medical or non-chief medical officer 26. Set up voiding schedule as appropriate (every 2 hours) Outcome: Progressing Note: Evaluation of progress towards goal: pt free from fall at this time safety measures in place * PT/OT/CMV DRIVER - Ayaan Campos, PT - 06/19/2025 2:49 [...] Mobility Raw Score: 6 [facility] G Code Modifier: CN SwePASS [...] P1/P2 occlusion. TNK given and transfer to [facility]. On arrival, NIHSS = 0 CT [...] Past Medical History: Diagnosis Date Atrial fibrillation ([facility]) BPH (benign prostatic hyperplasia) Broken nose CVA (cerebral vascular accident) ([facility]) 06/17/2025 Diabetes ([facility]) Epistaxis Hypertension Hyponatremia secondary to SIADH Hypothyroid [...] tolerated Equipment: repositioning sling, IV, bed alarm Telemetry/Factory Process Workers: Yes Oxygen Used: room air Other: high [...] with rails Stairs to Enter: 2 from engraver machine Rails: Right Stairs in Home: 0 Bathroom Shower/Tub: Walk-in shower Bathroom Toilet: Standard Home Equipment: Rolling walker Other : Home info from EMR review of recent therapy eval at [facility] - pt not able to answer questionsthis date and no family present. 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) * PT/OT/CMV DRIVER - Veronica Rivera OTR/Krishan - 06/19/2025 2:48 PM EDT Occupational Therapy Evaluation Discharge Recommendations for Safe Patient Transition Discharge Recommendations: Post acute - moderate Post Acute Moderate Rehab Needs: Recommend moderate intensity rehab, Tolerate 1- 2 hrs of therapy 3-5 days/wk, Subacute or chronic functional impairment Current Impairments Informing Therapy Recommendation: Ambulation status/safety, Cognition, Fall risk, ADL status, Communication needs, Endurance level Modified [place] Level of Disability: Severe disability 0= No [...] Activity Raw Score: 12 [facility] G Code Modifier: CL Modifed [...] Past Medical History: Diagnosis Date Atrial fibrillation ([facility]) BPH (benign prostatic hyperplasia) Broken nose CVA (cerebral vascular accident) ([facility]) 06/17/2025 Diabetes ([facility]) Epistaxis Hypertension Hyponatremia secondary to SIADH Hypothyroid [...] per early mobility guidelines. Equipment: telemetry, IV Telemetry/Factory Process Workers: Yes Oxygen Used: room air Other: fall [...] CVA (cerebral vascular accident) ([facility]) * Discharge Planning Note - Dawson Yost [...] Home with home health services Facility/Service Name [facility] Case discussed in daily transition rounds and chart reviewed by CN. Barriers to discharge include PT/OT, PMR to see, Discharge Plan remains: Home with HHC vs IPR. [facility] will accept. [facility]- will need PT/OT notes as soon as [...] Description: INTERVENTIONS: 1. Encourage patient or legal tax representative to report early pain and ask [...] per policy 9. Teach patient or legal tax representative interventions for comforting Outcome: Progressing Note: [...] at the bedside 7. Instruct patient/ patient tax representative about use of safety devices 8. Include patient/ patient tax representative in decisions related to safety Outcome: [...] hygiene technique. 7. Identify and instruct patient/patient tax representative in use of appropriate isolation precautionsfor identified infection/symptoms. 8. Provide and discuss with patient/patient tax representative on educational MDRO sheet. 9. Encourage and monitor nutritional status daily and consult stations superintendent if indicated. 10. Implement neutropenic guidelines as needed. Outcome: Progressing Note: Evaluation of progress towards goal: Pt should remain free from infection during this shift. Standard precautions used during care. Problem: Knowledge Deficit Goal: Patient/patient tax representative demonstrates understanding of disease process, treatment [...] Score of =/> 25 or indicated by [facility] Assessment Goal: Patient should be free from fall Description: Interventions: 1. [place] to environment 2. Hourly rounds addressing the [...] non-skid footwear 11. Teach patient and patient tax representative to maintain environment for safety and [...] (cane, walker) within reach 19. Request patient tax representative bring adaptive equipment/mobility aids from home or obtain and provide as needed 20. Consult pharmacy regarding effects of med's affecting mobility, cognition, and alternatives 21. Obtain physician order for PT if risk factors associated with mobility are present 22. Obtain physician order for OT as appropriate 23. Utilize diversional activities 24. Educate patient and patient tax representative how to maintain a safe environment during visitationtimes (notify nurse prior to leaving bedside) 25. Consider appropriateness of medical or non-chief medical officer 26. Set up voiding schedule as appropriate [...] EDT DISCHARGE PLANNING NOTE Referral sent to [facility] in [place] (P# ; F# ) * Discharge Planning Note - Brianna Verduzco - 06/18/2025 1:04 PM EDT DISCHARGE PLANNING NOTE Referral sent to. [facility] in [place], [place] (P# ; F# ) * Discharge [...] Acute rehab, Home with home health services Blood Bank Calendar Control Clerk met with patient, introduced self, and explained role. Patient educated on safe discharge plan. Pt admitted 06/17/2025 with CVA (cerebral vascular accident) ([facility]) [I63.9] per chart review. Consults: Neurology Discharge Barriers per Daily Transition Rounds and chart review: PT/OT, s/p TNK- bedrest, MRi, echo. Past Medical History: Diagnosis Date Atrial fibrillation ([facility]) BPH (benign prostatic hyperplasia) Broken nose CVA (cerebral vascular accident) ([facility]) 06/17/2025 Diabetes ([facility]) Epistaxis Hypertension Hyponatremia secondary to SIADH Hypothyroid [...] patient to appointments, shopping and assisting with rug repairer. Caregiver's personal limitations include Patient's feels she [...] vs acute rehab. PCP: TANYA Lozano Pharmacy: [facility] PCP and pharmacy confirmed with patient. CN offered to assist with follow up appointment arrangements; . TANYA Lozano added to Follow Up Providers for Summary of Care communication. Per patient self-report: Drug use: denies Smoking: denies ETOH Use: rarely Current discharge plan is: Home with [facility] vs acute rehab pending PT/OT eval. CN spoke with patient'swife she has used [facility] in past. Tasked to send referrals to [facility] and to [facility]. Services Requested: Services Requested Patient expects to [...] Evaluation of progress towards goal: Home with [facility] Autogenerated Goal Will continue to follow as plan of care develops. CN discussed benefits and importance of medication compliance and follow ups. Please feel free to reach out for any discharge planning questions. - Dawson Yost RN 06/18/25 12:24 PM * PT/OT/CMV DRIVER - Zaire Sierra CCC-CMV DRIVER - 06/18/2025 10:35 AM EDT Speech Therapy Evaluation Bedside Swallow/Feeding Evaluation Speech & Language Cognitive Evaluation Discharge Recommendations for Safe Patient Transition CMV DRIVER Post Discharge Therapy Recommendations: Continue ST services [...] decline resulting from CVA. Prognosis Services: Skilled CMV DRIVER services to address above deficits Prognosis/Potential: Good Considerations: Age, Cognition Discharge Recommendations for Safe Patient Transition CMV DRIVER Post Discharge Therapy Recommendations: Continue ST services [...] should be further evaluated. Prognosis Services: Skilled CMV DRIVER services to address the above deficits Prognosis/Potential: [...] Dysphagia Problem: Swallowing Dates: Start: 06/18/25 Disciplines: CMV DRIVER Goal: STG: Patient will complete safety strategies independently during PO intake 90% of the time Dates: Start: 06/18/25 Expected End: 07/22/25 Disciplines: CMV DRIVER Template: ST - Rehab Speech Problem: Auditory Comprehension Dates: Start: 06/18/25 Disciplines: CMV DRIVER Goal: LTG: Patient will comprehend communication related to basic medical and social needs and utilize compensatory strategies to maintain safety in a functional living environment Dates: Start: 06/18/25 Expected End: 07/22/25 Disciplines: CMV DRIVER Goal: STG: Patient will answer simple yes/no questions with 90% accuracy with minimal cueing. Dates: Start: 06/18/25 Expected End: 07/22/25 Disciplines: CMV DRIVER Goal: STG: Patient will answer complex yes/no questions with 90% accuracy with minimal cueing Dates: Start: 06/18/25 Expected End: 07/22/25 Disciplines: CMV DRIVER Problem: Verbal Expression Dates: Start: 06/18/25 Disciplines: CMV DRIVER Goal: LTG: Patient will utilize compensatory strategies to communicate wants and needs effectively to different conversational partners, maintain safety and participate socially in a functional living environment Dates: Start: 06/18/25 Expected End: 07/22/25 Disciplines: CMV DRIVER Goal: STG: Patient will complete simple to complex divergent and convergent naming tasks with 90% accuracy with minimal cueing to improve thought organization Dates: Start: 06/18/25 Expected End: 07/22/25 Disciplines: CMV DRIVER Goal: STG: Patient will use word retrieval strategies during structured interactions to improve functional communication during activities of daily living with 90% accuracy with minimal cueing Dates: Start: 06/18/25 Expected End: 07/22/25 Disciplines: CMV DRIVER Speech Therapy Care Plan (Resolved) There are no resolved problems. Principal Problem: CVA (cerebral vascular accident) ([facility]) * PT/OT/CMV DRIVER - ALVARO Chino/Krishan - 06/18/2025 7:37 AM EDT Occupational Therapy OT Type of Visit: Medical deferral Reason For Medical Deferral: Activity limitations Activity Limitations: Strict bedrest (Per TNK protocol. Will continue to follow.) * PT/OT/CMV DRIVER - Ayaan Campos PT - 06/18/2025 7:28 [...] Description: INTERVENTIONS: 1. Encourage patient or legal tax representative to report early pain and ask [...] per policy 9. Teach patient or legal tax representative interventions for comforting Outcome: Progressing Note: [...] at the bedside 7. Instruct patient/ patient tax representative about use of safety devices 8. Include patient/ patient tax representative in decisions related to safety Outcome: [...] hygiene technique. 7. Identify and instruct patient/patient tax representative in use of appropriate isolation precautionsfor identified infection/symptoms. 8. Provide and discuss with patient/patient tax representative on educational MDRO sheet. 9. Encourage and monitor nutritional status daily and consult stations superintendent if indicated. 10. Implement neutropenic guidelines as [...] be free from fall Description: Interventions: 1. [place] to environment 2. Hourly rounds addressing the [...] non-skid footwear 11. Teach patient and patient tax representative to maintain environment for safety and [...] (cane, walker) within reach 19. Request patient tax representative bring adaptive equipment/mobility aids from home or obtain and provide as needed 20. Consult pharmacy regarding effects of med's affecting mobility, cognition, and alternatives 21. Obtain physician order for PT if risk factors associated with mobility are present 22. Obtain physician order for OT as appropriate 23. Utilize diversional activities 24. Educate patient and patient tax representative how to maintain a safe environment during visitationtimes (notify nurse prior to leaving bedside) 25. Consider appropriateness of medical or non-chief medical officer 26. Set up voiding schedule as appropriate [...] Description: INTERVENTIONS: 1. Encourage patient or legal tax representative to report early pain and ask [...] per policy 9. Teach patient or legal tax representative interventions for comforting Outcome: Progressing Note: [...] at the bedside 7. Instruct patient/ patient tax representative about use of safety devices 8. Include patient/ patient tax representative in decisions related to safety Outcome: [...] hygiene technique. 7. Identify and instruct patient/patient tax representative in use of appropriate isolation precautionsfor identified infection/symptoms. 8. Provide and discuss with patient/patient tax representative on educational MDRO sheet. 9. Encourage and monitor nutritional status daily and consult stations superintendent if indicated. 10. Implement neutropenic guidelines as needed. Outcome: Progressing Note: Evaluation of progress towards goal: Patient remains free from signs of infection at this time. Will continue to monitor. Problem: Knowledge Deficit Goal: Patient/patient tax representative demonstrates understanding of disease process, treatment [...] Score of =/> 25 or indicated by [facility] Assessment Goal: Patient should be free from fall Description: Interventions: 1. [place] to environment 2. Hourly rounds addressing the [...] non-skid footwear 11. Teach patient and patient tax representative to maintain environment for safety and [...] (cane, walker) within reach 19. Request patient tax representative bring adaptive equipment/mobility aids from home or obtain and provide as needed 20. Consult pharmacy regarding effects of med's affecting mobility, cognition, and alternatives 21. Obtain physician order for PT if risk factors associated with mobility are present 22. Obtain physician order for OT as appropriate 23. Utilize diversional activities 24. Educate patient and patient tax representative how to maintain a safe environment during visitationtimes (notify nurse prior to leaving bedside) 25. Consider appropriateness of medical or non-chief medical officer 26. Set up voiding schedule as appropriate (every 2 hours) Outcome: Progressing Note: Evaluation of progress towards goal: Fall risk assessment preformed and safety measures in place. Education given to family/patient. Will continue to monitor. Additional Comments: [facility] Progress note* Discharge Planning Note - Hellen Brady - 06/23/2025 10:54 AM EDT DISCHARGE PLANNING NOTE BLS via PTN scheduled for today 06/23/25 at 1 PM to [facility]. Confirmed in [facility]. [facility]08-[facility] Progress note* Discharge Planning Note - CHARLES Lee - 06/23/2025 10:39 AM EDT DISCHARGE PLANNING NOTE Discharge written, CRF complete. Social work task [facility] to arrange BLS transport- wait confirmed time. [facility] notified of discharge and CRF sent. HENS submitted. is aware and agreeable to transition plan. RN updated. - CHARLES LEE 06/23/25 10:42 AM [facility]08-[facility] Hospital course Narrative* Erika Crisostomo MD - 06/23/2025 10:30 AM EDT Images from the original note were not included. [facility]- Hospital Medicine Discharge Summary Patient's Name: Dariel Zabala Date of : 1940 Age: 85 yrs Gender: male PCP: Patient Care Team: Yanique Mcneill APRN-AVELINA as PCP - General (Family Medicine) DATE OF ADMISSION: 06/17/2025 DATE OF DISCHARGE: 06/23/2025 DISCHARGE DIAGNOSES: Active Hospital Problems Diagnosis Date Noted CVA (cerebral vascular accident) ([facility]) 06/17/2025 Resolved Problems No resolved problems to [...] in his anticoagulation Patient was discharged to retirement facility at a stable condition Discharge Medications: [...] total) by mouth in the morning. coenzyme G07-eqjkbqo E 100-5 mg-unit capsule Take 100 mg [...] Your Medications These medications were sent to [facility]/pharmacy #[id number] - [place], [place] - [address] OF [address] [address] apixaban 5 mg tablet midodrine 5 mg [...] Extra Tubes. Procedure Abnormality Status --------- ------ Fosubo Top[[id number]] Final result Please view results for these [...] results found. Discharge Instructions Disposition: Discharge to retirement facility Condition: Stable Activity: activity as tolerated Diet: Adult diet Regular Texture; Fluid Restriction 1800 mL Adult diet Yanique Españaann, [employer]OTH PRINTING BACK TENDER-INSURANCE CONSULTANT [address] [facility] [address] Follow up Information Provided to the Patient: Patient given copy of Discharge Instructions, patient hospital stay was discussed. No special instructions. I have spent 35 minutes coordinating and preparing this discharge. I have discussed the patient's hospitalization course, treatment plan and follow up instructions with patient and . I have answered all the patient's questions. Electronically signed by: ERIKA CRISOSTOMO MD [facility] Hospitalists, Department of Internal Medicine 06/23/25 1:57 PM This note was partially dictated with the use of M*Modal.Please note that this dictation was completed with computer voice recognition software. Quite often unanticipated grammatical, syntax, homophones, and other interpretive errors are inadvertently transcribed by the computer software. Please disregard these errors. Please excuse any errors that have escaped final proofreading documented in this encounterC[facility]08-10-2025 History of Present illness Narrative* Toy Baez [...] 3 Weight Readings 06/21/25 0500 06/22/25 0500 06/23/25437 Weight: 78.2 kg (172 lb 6.4 oz) [...] PLATELETS X10E9/L 234 212 189 204 200 @RESUFAST(IRON,TIBC,FERRITIN,IRONSAT,FOLATE,[id number]))@ Results from last 7 days Lab Units [...] parameters to maintain systolic blood pressure more devt443 and less than 120. 4. Atrial fibrillation: [...] For questions please call: Answering Service at [phone] Or Office at [phone] This note was created with the assistance of a speech-recognition program. Although the intention is to generate a document that actually reflects the content of the visit, no guarantees can be provided that every mistake has been identified and corrected by editing. * Erika Crisostomo MD - 06/22/2025 12:57 PM EDT Images from the original note were not included. [facility] Hospitalists Progress Note 06/22/2025 Patient Name: [...] Tubes. Procedure Abnormality Status --------- ------ Lavender Top[[id number]] Final result Please view results for these [...] Results from last 7 days Lab Units 08/08/08 54206/22/2521906/21/25192406/21/25 1314 06/21/25 0758 06/20/25 1238 06/20/25 0844 06/19/25 1927 06/19/25 0706/18/25 1528 06/18/25 0343 06/17/25 1653 SODIUM mmol/L [...] Results from last 7 days Lab Units 06/22/2522006/21/2575706/20/2584306/19/2518 06/18/25 1528 06/18/25 0343 WBC x10E9/L 5.6 5.3 6.5 7.9 -- 5.4 HEMOGLOBIN g/dL 12.5* 14.1 13.3 13.4 13.9 12.7* HEMATOCRIT % 36.3* 40.7 38.1* 38.7* -- 36.0* PLATELETS X10E9/L 212 189 204 200 214 251 @RESUFAST(IRON,TIBC,FERRITIN,IRONSAT,FOLATE,[id number]))@ Results from last 7 days Lab Units [...] For questions please call: Answering Service at [phone] Or Office at [phone] This note was created with the assistance [...] clinical progress daily. Griselda Ramirez PharmD Ext [phone] * Erika Crisostomo MD - 06/21/2025 3:47 PM EDT Images from the original note were not included. [facility] Progress Note 06/21/2025 Patient Name: [...] Extra Tubes. Procedure Abnormality Status --------- ------ [facility][[id number]] Final result Please view results for these [...] QUESTIONS FEEL FREE TO CALL: 1. OFFICE [phone] 2. ANSWERING SERVICE:[phone] YOU CAN CONTACT ME THROUGH [employer] DURING THE DAYTIME HOURS, IF NO RESPONSE AFTER 5 MINUTES CALL THE ANSWERING SERVICE This note was created with the assistance of a speech-recognition program. Although the intention is to generate a document that actually reflects the content of the visit, no guarantees can be provided that every mistake has been identified and corrected by editing. * Vinh Andre [facility] - 06/21/2025 9:56 AM EDT Pharmacokinetic Consult [...] reportedly received TNK prior to arrival to [facility], heparin infusion bridge Drug-disease Interactions: [...] to follow patient's clinical progress daily. Vinh Andre, PharmD, [facility] [phone] * Myrtle Jacome MD - 06/21/2025 7:52 [...] CVA (cerebral vascular accident) ([facility]) Encephalopathy Recommendations/Plan: Continue PT, OT Max assist x2 bed mobility Family education Coumadin for AFib Consider retirement facility Will follow up with you for rehab needs Myrtle Jacome MD * Noreen Myers [facility] - 06/20/2025 10:20 AM EDT Pharmacokinetic Consult [...] (last 168 hours) Date/Time Action Medication Dose 08/06/25 1753 Given warfarin (COUMADIN) tablet 5 mg 5 mg Assessment INR currently: subtherapeutic Drug-drug interactions: levothyroxine Drug-disease state interactions: age. Other pertinent information: resumed home dose, continue to bridge with heparin drip. Plan RX Anticoag Warfarin IP dose plan: Continue current warfarin regimen, give warfarin 2.5 mg today. Pharmacist will continue to follow patient's clinical progress daily. Noreen Myers RPH Ext [phone] * Pat Araiza RN - 06/19/2025 8:52 PM EDT Images from the original note were not included. FOLLOW-UP: Post-Intensive Care Rounding Note Patient: Dariel Zabala : 1940 Age: 85 y.o. Length of Stay: 2 days Admission Diagnosis: CVA (cerebral vascular accident) ([facility]) [I63.9] Reviewing patient due to his recent transfer out from Intensive Care. Recorded vital signs are stable and the patient is not noted to be in any apparent distress. Telemetry and monitoring noted. Staff may call with any issues or concerns regarding his clinical presentation or stability. Thank you, Pat Araiza RN Rapid Response: [facility] * Rahat Mallory RPH - 06/19/2025 [...] CVA (cerebral vascular accident) ([facility]) [I63.9] Reviewing patient due to his recent transfer out from Intensive Care. Recorded vital signs are stable and the patient is not noted to be in any apparent distress. Telemetry and monitoring noted. Staff may call with any issues or concerns regarding his clinical presentation or stability. Thank you, JOSSELYN LARA RN Rapid Response: [facility] * Pat Araiza RN - 06/18/2025 8:32 PM EDT Images from the original note were not included. FOLLOW-UP: Post-Intensive Care Rounding Note Patient: Dariel Zabala : 1940 Age: 85 y.o. Length of Stay: 1 days Admission Diagnosis: CVA (cerebral vascular accident) ([facility]) [I63.9] Reviewing patient due to his recent transfer out from Intensive Care. Recorded vital signs are stable and the patient is not noted to be in any apparent distress. Telemetry and monitoring noted. Staff may call with any issues or concerns regarding his clinical presentation or stability. Thank you, Pat Araiza RN Rapid Response: [facility] documented in this encounterC[facility]-10-2025 Plan of care note * Plan of Care - Yonathan Joy RN - 06/23/2025 6:29 AM EDT Problem: Pain Goal: Patient goal is pain score less than 4, able to rest, and participant in treatment plan as appropriate Description: INTERVENTIONS: 1. Encourage patient or legal tax representative to report early pain and ask [...] per policy 9. Teach patient or legal tax representative interventions for comforting 06/23/2025627 by ERIN [...] at the bedside 7. Instruct patient/ patient tax representative about use of safety devices 8. Include patient/ patient tax representative in decisions related to safety Outcome: [...] hygiene technique. 7. Identify and instruct patient/patient tax representative in use of appropriate isolation precautionsfor identified infection/symptoms. 8. Provide and discuss with patient/patient tax representative on educational MDRO sheet. 9. Encourage and monitor nutritional status daily and consult stations superintendent if indicated. 10. Implement neutropenic guidelines as needed. Outcome: Progressing Note: Evaluation of progress towards goal: Standard precaution maintained Problem: Knowledge Deficit Goal: Patient/patient tax representative demonstrates understanding of disease process, treatment [...] supplement as ordered 13. Collaborate with clinical stations superintendent 14. Include patient/ patient's tax representative in decisions related to nutrition Outcome: [...] develop effective communication strategies 4. Include patient/patient tax representative in decisions related to communication Outcome: [...] Collaborate with ancillary departments 14. Include patient/patient tax representative in decisions related to anxiety Outcome: [...] care 6. Collaborate with pastoral/spiritual care, social sciences lecturer, mental health counselor as needed. 7. Instruct patient on diversional activities such as physical activity, distraction, and deep breathing exercises to assist with coping 8. Involve patient's tax representative in care Outcome: Progressing Note: Evaluation [...] Score of =/> 25 or indicated by [facility] Assessment Goal: Patient should be free from fall Description: Interventions: 1. [place] to environment 2. Hourly rounds addressing the [...] non-skid footwear 11. Teach patient and patient tax representative to maintain environment for safety and [...] (cane, walker) within reach 19. Request patient tax representative bring adaptive equipment/mobility aids from home or obtain and provide as needed 20. Consult pharmacy regarding effects of med's affecting mobility, cognition, and alternatives 21. Obtain physician order for PT if risk factors associated with mobility are present 22. Obtain physician order for OT as appropriate 23. Utilize diversional activities 24. Educate patient and patient tax representative how to maintain a safe environment during visitationtimes (notify nurse prior to leaving bedside) 25. Consider appropriateness of medical or non-chief medical officer 26. Set up voiding schedule as appropriate (every 2 hours) Outcome: Progressing Note: Evaluation of progress towards goal: Fall bundles maintained [facility]08-[facility] Consult note* Kaye Goel MD - 06/22/2025 4:04 PM EDTAssociated Order(s): IP CONSULT TO CARDIOLOGY Images from the original note were not included. [facility] [address] [place] [address] HISTORY & PHYSICAL / CONSULT NOTE Dariel Zabala PCP: Yanique Mcneill APRN-AVELINA Date of Admission: 06/17/2025 Date of Consultation: 06/22/2025 4:05 PM Consult for atrial fibrillation, bradycardia, intermittent pauses SUBJECTIVE History of Present Illness: Dariel Zabala is a 85 y.o. male w/ PMH RUFINO s/p R CEA, DMII, HLD, hypothyroidism, HTN, SIADH, recent TIA 05/2025, and permanent atrial fibrillation w/ [id number] 7 on warfarin who presented 06/17/25 with [...] Past Medical History: Diagnosis Date Atrial fibrillation ([facility]) BPH (benign prostatic hyperplasia) Broken nose CVA (cerebral vascular accident) ([facility]) 06/17/2025 Diabetes ([facility]) Epistaxis Hypertension Hyponatremia secondary to SIADH Hypothyroid [...] intravenous PRN Rocio Davis MD heparin infusion 55530 units/500 mL in 0.45% NaCl (50 units/mL [...] Yes Not In System Ref Prov coenzyme L67-vmnxaym E 100-5 mg-unit capsule Take 100 mg [...] Extremities: No edema ASSESSMENT Permanent atrial fibrillation, [id number] 8, on heparin gtt/warfarin L CVA s/p [...] This note was completed using a voice basin cleaner system. Every effort was made to ensure accuracy. However, inadvertent computerized basin cleaner errors may be present. [employer] Work Phone: [phone]) 810-948008-09-2025 Consult note* Kaye Goel MD - 06/22/2025 4:04 PM EDTAssociated Order(s): IP CONSULT TO CARDIOLOGY Images from the original note were not included. [facility] [address] [place] [address] HISTORY & PHYSICAL / CONSULT NOTE Dariel Bal Vj PCP: TANYA Lozano Date of Admission: 06/17/2025 Date of Consultation: 06/22/2025 4:05 PM Consult for atrial fibrillation, bradycardia, intermittent pauses SUBJECTIVE History of Present Illness: Dariel Zabala is a 85 y.o. male w/ PMH RUFINO s/p R CEA, DMII, HLD, hypothyroidism, HTN, SIADH, recent TIA 05/2025, and permanent atrial fibrillation w/ [id number] 7 on warfarin who presented 06/17/25 with RLE weakness and aphasia. He received TNK at OSH for R P1/P2 occlusion and subsequently transferred to [facility]. Head imaging w/o acute infarct, [...] Past Medical History: Diagnosis Date Atrial fibrillation ([facility]) BPH (benign prostatic hyperplasia) Broken nose CVA (cerebral vascular accident) ([facility]) 06/17/2025 Diabetes ([facility]) Epistaxis Hypertension Hyponatremia secondary to SIADH Hypothyroid [...] injection 1 mg 1 mg intramuscular Once Avijit Crisostomo, MD heparin (porcine) injection 2,000 Units 2,000 Units intravenous PRN Rocio Davis MD heparin infusion 37632 units/500 mL in 0.45% NaCl (50 units/mL [...] Nightly Rocio Davis MD 5 mg at 08/07/08 2031 sodium phosphate 20 mmol in sodium chloride [...] Mirian Carranza MD 10 mL at 06/22/25 08 sodium chloride tablet 1,000 mg 1,000 mg oral 3x daily around food Maisha Zuniga MD 1,000 mg at 06/22/25 1208 urea (URE-NA) packet 15 g 15 g oral BID Maisha Vergara MD 15 g at 06/22/25 08 warfarin (COUMADIN) tablet 2.5 mg 2.5 mg [...] Yes Not In System Ref Prov coenzyme T61-ejfpvof E 100-5 mg-unit capsule Take 100 mg [...] Extremities: No edema ASSESSMENT Permanent atrial fibrillation, [id number] 8, on heparin gtt/warfarin L CVA s/p [...] This note was completed using a voice basin cleaner system. Every effort was made to ensure accuracy. However, inadvertent computerized basin cleaner errors may be present. * Richa Beyer MD - 06/20/2025 1:56 PM EDTAssociated Order(s): IP CONSULT TO PHYSICAL MEDICINE REHAB Images from the original note were not included. PHYSICAL MEDICINE AND REHABILITATION CONSULT Date of Admission: 06/17/2025 1:38 PM Referring Physician: Mirian Carranza MD PCP: Yanique Mcneill APRN-AVELINA Chief Compliant: Principal Problem: CVA (cerebral vascular accident) ([facility]) Reason for Consultation: Rehabilitation Candidacy and Rehab Industrial Psychology Professor Physicians/Services Consulting Providers Provider Service Specialty Richa Beyer [...] given to the patient and transferred to [facility]. CT perfusion study showed deficit in [...] Past Medical History: Diagnosis Date Atrial fibrillation ([facility]) BPH (benign prostatic hyperplasia) Broken nose CVA (cerebral vascular accident) ([facility]) 06/17/2025 Diabetes ([facility]) Epistaxis Hypertension Hyponatremia secondary to SIADH Hypothyroid [...] Assistance: Independent (06/19/25 1410) Vocational: Retired (06/19/25 141) Other: Per EMR review, pt indep at [...] End: 06:30 06/20/2025 This is a standard [facility] EEG monitoring reportusing scalp and ear electrodes [...] or primary neurological disorders. Yaquelin Esparza MD Drafter [employer] Neurology/Neurophysiology [facility] Recent Results (from the past [...] Tubes. Procedure Abnormality Status --------- ------ PST TOP[[id number]] Final result Please view results for these [...] Supine to Sit: Max assist (2 assist) (06/19/25 141) Sit to Supine: Max assist (2 assist) (06/19/25 141) Transfers Other: not appropriate to attempt standing this date due to poor sitting balance and not following commands. Recommend maxi richard lift for safe transfers with staff. (06/19/25 141) Ambulation: Gait Gait Distance: patient was dependent for static sitting balance. Tends to push back and to the left. (06/19/25 140) Other: not appropriate at this time (06/19/25 141) Activity limitations: Activity Tolerance Endurance: Tolerates <30 minutes activity WITHOUT vital sign changes (06/19/25 141) Other: room air (06/19/25 1409) Weight-bearing: Current [...] CVA (cerebral vascular accident) ([facility]) MRI is negative for ischemia Debility Gait [...] by mouth in the morning. Taking coenzyme O25-qoxxenm E 100-5 mg-unit capsule Take 100 mg [...] days Lab Units 06/20/25 0844 06/20/25 0042 06/19/257 06/19/2571706/18/25 1528 06/18/25 0343 06/17/25 1653 SODIUM mmol/L [...] last 7 days Lab Units 06/20/25 0844 06/19/2571706/18/25 15206/18/25 0343 WBC x10E9/L 6.5 7.9 -- 5.4 HEMOGLOBIN g/dL 13.3 13.4 13.9 12.7* HEMATOCRIT % 38.1* 38.7* -- 36.0* PLATELETS [id number]/L 204 200 214 251 Results from last 7 days Lab Units 06/19/2571706/18/25 15206/17/25 1653 MAGNESIUM mg/dL 2.3 1.6* 1.7* Lab [...] anticoagulation MAISHA VERGARA MD [facility] ANY QUESTIONS FEEL FREE TO CALL: 1. OFFICE [phone] 2. ANSWERING SERVICE:[phone] YOU CAN CONTACT ME THROUGH [employer] DURING THE DAYTIME HOURS, IF NO RESPONSE AFTER 5 MINUTES CALL THE ANSWERING SERVICE This note was created with the assistance of a speech-recognition program. Although the intention is to generate a document that actually reflects the content of the visit, no guarantees can be provided that every mistake has been identified and corrected by editing. documented in this [facility] Plan of care note * Plan of Care - Debra Huggins RN - 06/22/2025 2:18 PM EDT Problem: Pain Goal: Patient goal is pain score less than 4, able to rest, and participant in treatment plan as appropriate Description: INTERVENTIONS: 1. Encourage patient or legal tax representative to report early pain and ask [...] per policy 9. Teach patient or legal tax representative interventions for comforting Outcome: Progressing Note: [...] at the bedside 7. Instruct patient/ patient tax representative about use of safety devices 8. Include patient/ patient tax representative in decisions related to safety Outcome: [...] hygiene technique. 7. Identify and instruct patient/patient tax representative in use of appropriate isolation precautionsfor identified infection/symptoms. 8. Provide and discuss with patient/patient tax representative on educational MDRO sheet. 9. Encourage and monitor nutritional status daily and consult stations superintendent if indicated. 10. Implement neutropenic guidelines as needed. Outcome: Progressing Note: Evaluation of progress towards goal: continue to monitor labs, vitals, tele, IV site Problem: Knowledge Deficit Goal: Patient/patient tax representative demonstrates understanding of disease process, treatment [...] supplement as ordered 13. Collaborate with clinical stations superintendent 14. Include patient/ patient's tax representative in decisions related to nutrition Outcome: [...] develop effective communication strategies 4. Include patient/patient tax representative in decisions related to communication Outcome: Progressing Note: Evaluation of progress towards goal: [place], speak loudly and understands Problem: Potential for [...] Collaborate with ancillary departments 14. Include patient/patient tax representative in decisions related to anxiety Outcome: [...] care 6. Collaborate with pastoral/spiritual care, social sciences lecturer, mental health counselor as needed. 7. Instruct patient on diversional activities such as physical activity, distraction, and deep breathing exercises to assist with coping 8. Involve patient's tax representative in care Outcome: Progressing Note: Evaluation [...] Progressing Note: Evaluation of progress towards goal: [facility] Problem: Moderate - High Risk Fall Score Description: [place] Fall Score of =/> 25 or indicated by [facility] Assessment Goal: Patient should be free from fall Description: Interventions: 1. [place] to environment 2. Hourly rounds addressing the [...] non-skid footwear 11. Teach patient and patient tax representative to maintain environment for safety and [...] (cane, walker) within reach 19. Request patient tax representative bring adaptive equipment/mobility aids from home or obtain and provide as needed 20. Consult pharmacy regarding effects of med's affecting mobility, cognition, and alternatives 21. Obtain physician order for PT if risk factors associated with mobility are present 22. Obtain physician order for OT as appropriate 23. Utilize diversional activities 24. Educate patient and patient tax representative how to maintain a safe environment during visitationtimes (notify nurse prior to leaving bedside) 25. Consider appropriateness of medical or non-chief medical officer 26. Set up voiding schedule as appropriate (every 2 hours) Outcome: Progressing Note: Evaluation of progress towards goal: no falls; syncopal episode per notes 06/21; up with assistonly; high fall risk - maintain precautions [facility]08[facility] Progress note* Discharge Planning Note - Norma Ritter - 06/22/2025 12:42 PM EDT DISCHARGE PLANNING NOTE Prior Auth approved for admission to : [facility] (P# [phone] ; F# ) Approval # [id number] Valid for Dates: 06/22/2025 - 06/28/2025 [facility]08-[facility] Progress note* Discharge Planning Note - Norma Ritter - 06/22/2025 10:39 AM EDT DISCHARGE PLANNING NOTE Prior auth submitted to: [employer] Via: Availity On behalf of : [facility] (P# ; F# ) Ref# [id number] [facility]08-09-[facility] Progress note* Discharge Planning Note - CHARLES Lee - 06/22/2025 10:15 AM EDT DISCHARGE PLANNING NOTE Case discussed in daily transition rounds and chart reviewed by CN. Discharge Plan remains: [facility]. [facility] accepting referral. Social work contacted to inform of above and she was pleased with the news. is looking for patient's SSN. Social work task [facility] to start precert. CN will continue to follow and is available should any further needs arise. - CHARLES LEE 06/22/25 10:15 AM Insurance approved SNF stay. Patient is tentatively discharged tomorrow. Social work sent a messageto [facility] to inform of tentative discharge date. Social work contacted to inform of above and she is agreeable to transition plan. HENS started. - CHARLES LEE 06/22/25 2:54 PM [facility]08[facility] Plan of care note* Plan of Care - Yonathan Joy RN - 06/22/2025 3:45 AM EDT Problem: Pain Goal: Patient goal is pain score less than 4, able to rest, and participant in treatment plan as appropriate Description: INTERVENTIONS: 1. Encourage patient or legal tax representative to report early pain and ask [...] per policy 9. Teach patient or legal tax representative interventions for comforting Outcome: Progressing Note: [...] at the bedside 7. Instruct patient/ patient tax representative about use of safety devices 8. Include patient/ patient tax representative in decisions related to safety Outcome: [...] hygiene technique. 7. Identify and instruct patient/patient tax representative in use of appropriate isolation precautionsfor identified infection/symptoms. 8. Provide and discuss with patient/patient tax representative on educational MDRO sheet. 9. Encourage and monitor nutritional status daily and consult stations superintendent if indicated. 10. Implement neutropenic guidelines as needed. Outcome: Progressing Note: Evaluation of progress towards goal: Pt has no s/s of infection, standard precaution maintained Problem: Knowledge Deficit Goal: Patient/patient tax representative demonstrates understanding of disease process, treatment [...] supplement as ordered 13. Collaborate with clinical stations superintendent 14. Include patient/ patient's tax representative in decisions related to nutrition Outcome: [...] develop effective communication strategies 4. Include patient/patient tax representative in decisions related to communication Outcome: [...] Collaborate with ancillary departments 14. Include patient/patient tax representative in decisions related to anxiety Outcome: [...] care 6. Collaborate with pastoral/spiritual care, social sciences lecturer, mental health counselor as needed. 7. Instruct patient on diversional activities such as physical activity, distraction, and deep breathing exercises to assist with coping 8. Involve patient's tax representative in care Outcome: Progressing Note: Evaluation [...] Score of =/> 25 or indicated by [facility] Assessment Goal: Patient should be free from fall Description: Interventions: 1. [place] to environment 2. Hourly rounds addressing the [...] non-skid footwear 11. Teach patient and patient tax representative to maintain environment for safety and [...] (cane, walker) within reach 19. Request patient tax representative bring adaptive equipment/mobility aids from home or obtain and provide as needed 20. Consult pharmacy regarding effects of med's affecting mobility, cognition, and alternatives 21. Obtain physician order for PT if risk factors associated with mobility are present 22. Obtain physician order for OT as appropriate 23. Utilize diversional activities 24. Educate patient and patient tax representative how to maintain a safe environment during visitationtimes (notify nurse prior to leaving bedside) 25. Consider appropriateness of medical or non-chief medical officer 26. Set up voiding schedule as appropriate (every 2 hours) Outcome: Progressing Note: Evaluation of progress towards goal: Fall bundles maintained [facility]08-[facility] Plan of care note* Plan of Care - Lauren Gaona RN - 06/21/2025 6:18 PM EDT Problem: Knowledge Deficit Goal: Patient/patient tax representative demonstrates understanding of disease process, treatment [...] for adl's Problem: Knowledge Deficit Goal: Patient/patient tax representative demonstrates understanding of disease process, treatment [...] Description: INTERVENTIONS: 1. Encourage patient or legal tax representative to report early pain and ask [...] per policy 9. Teach patient or legal tax representative interventions for comforting Outcome: Progressing Note: [...] at the bedside 7. Instruct patient/ patient tax representative about use of safety devices 8. Include patient/ patient tax representative in decisions related to safety Outcome: [...] hygiene technique. 7. Identify and instruct patient/patient tax representative in use of appropriate isolation precautionsfor identified infection/symptoms. 8. Provide and discuss with patient/patient tax representative on educational MDRO sheet. 9. Encourage and monitor nutritional status daily and consult stations superintendent if indicated. 10. Implement neutropenic guidelines as [...] supplement as ordered 13. Collaborate with clinical stations superintendent 14. Include patient/ patient's tax representative in decisions related to nutrition Outcome: [...] develop effective communication strategies 4. Include patient/patient tax representative in decisions related to communication Outcome: [...] Collaborate with ancillary departments 14. Include patient/patient tax representative in decisions related to anxiety Outcome: [...] care 6. Collaborate with pastoral/spiritual care, social sciences lecturer, mental health counselor as needed. 7. Instruct patient on diversional activities such as physical activity, distraction, and deep breathing exercises to assist with coping 8. Involve patient's tax representative in care Outcome: Progressing Note: Evaluation [...] Score of =/> 25 or indicated by [facility] Assessment Goal: Patient should be free from fall Description: Interventions: 1. [place] to environment 2. Hourly rounds addressing the [...] non-skid footwear 11. Teach patient and patient tax representative to maintain environment for safety and [...] (cane, walker) within reach 19. Request patient tax representative bring adaptive equipment/mobility aids from home or obtain and provide as needed 20. Consult pharmacy regarding effects of med's affecting mobility, cognition, and alternatives 21. Obtain physician order for PT if risk factors associated with mobility are present 22. Obtain physician order for OT as appropriate 23. Utilize diversional activities 24. Educate patient and patient tax representative how to maintain a safe environment during visitationtimes (notify nurse prior to leaving bedside) 25. Consider appropriateness of medical or non-chief medical officer 26. Set up voiding schedule as appropriate [...] Description: INTERVENTIONS: 1. Encourage patient or legal tax representative to report early pain and ask [...] per policy 9. Teach patient or legal tax representative interventions for comforting Outcome: Progressing Note: [...] at the bedside 7. Instruct patient/ patient tax representative about use of safety devices 8. Include patient/ patient tax representative in decisions related to safety Outcome: [...] hygiene technique. 7. Identify and instruct patient/patient tax representative in use of appropriate isolation precautionsfor identified infection/symptoms. 8. Provide and discuss with patient/patient tax representative on educational MDRO sheet. 9. Encourage and monitor nutritional status daily and consult stations superintendent if indicated. 10. Implement neutropenic guidelines as [...] supplement as ordered 13. Collaborate with clinical stations superintendent 14. Include patient/ patient's tax representative in decisions related to nutrition Outcome: [...] develop effective communication strategies 4. Include patient/patient tax representative in decisions related to communication Outcome: [...] Collaborate with ancillary departments 14. Include patient/patient tax representative in decisions related to anxiety Outcome: [...] care 6. Collaborate with pastoral/spiritual care, social sciences lecturer, mental health counselor as needed. 7. Instruct patient on diversional activities such as physical activity, distraction, and deep breathing exercises to assist with coping 8. Involve patient's tax representative in care Outcome: Progressing Note: Evaluation [...] Score of =/> 25 or indicated by [facility] Assessment Goal: Patient should be free from fall Description: Interventions: 1. [place] to environment 2. Hourly rounds addressing the [...] non-skid footwear 11. Teach patient and patient tax representative to maintain environment for safety and [...] (cane, walker) within reach 19. Request patient tax representative bring adaptive equipment/mobility aids from home or obtain and provide as needed 20. Consult pharmacy regarding effects of med's affecting mobility, cognition, and alternatives 21. Obtain physician order for PT if risk factors associated with mobility are present 22. Obtain physician order for OT as appropriate 23. Utilize diversional activities 24. Educate patient and patient tax representative how to maintain a safe environment during visitationtimes (notify nurse prior to leaving bedside) 25. Consider appropriateness of medical or non-chief medical officer 26. Set up voiding schedule as appropriate (every 2 hours) Outcome: Progressing Note: Evaluation of progress towards goal: free of fall this shift Problem: Pain Goal: Patient goal is pain score less than 4, able to rest, and participant in treatment plan as appropriate Description: INTERVENTIONS: 1. Encourage patient or legal tax representative to report early pain and ask [...] per policy 9. Teach patient or legal tax representative interventions for comforting Outcome: Progressing Note: [...] at the bedside 7. Instruct patient/ patient tax representative about use of safety devices 8. Include patient/ patient tax representative in decisions related to safety Outcome: [...] at the bedside 7. Instruct patient/ patient tax representative about use of safety devices 8. Include patient/ patient tax representative in decisions related to safety Outcome: [...] hygiene technique. 7. Identify and instruct patient/patient tax representative in use of appropriate isolation precautionsfor identified infection/symptoms. 8. Provide and discuss with patient/patient tax representative on educational MDRO sheet. 9. Encourage and monitor nutritional status daily and consult stations superintendent if indicated. 10. Implement neutropenic guidelines as [...] supplement as ordered 13. Collaborate with clinical stations superintendent 14. Include patient/ patient's tax representative in decisions related to nutrition Outcome: [...] develop effective communication strategies 4. Include patient/patient tax representative in decisions related to communication Outcome: [...] as caffeine and (more content not included)... [facility] Progress note* Discharge Planning Note - Martina Mckeon - 06/21/2025 3:45 PM EDT DISCHARGE PLANNING NOTE Referral sent to [facility] (P# ; F# ) [facility]08-[facility] Progress note* Discharge Planning Note - Rohini [...] SNF Facility/Service Name NA SNF Name [facility] Does the patient need discharge transportation arranged? Yes Transportation Arranged Ambulance Mobility issues discussed with transportation provider Yes Patient choice offered Yes List Provided Yes [facility] List Provided [facility] Facility Financial Disclosure Provided for In-Network Referral Yes DISCHARGE PLANNING NOTE CN spoke w pts , SNF choice is [facility]. She did n ot have a 2nd choice. CN asked her to review list for dditional choices. CN tasked for referral to [facility]. Barriers: SNFaccept. Will need precert. CTbrain.Rohini Mcintyre RN [facility]08-08-20[facility] Nurse Note* Lauren Gaona RN - 06/21/2025 1:[address] Crisostoom, restart the heparin drip at this time, CTB negative. Restart at prior rate. Recheck antixa in 6 hours. [facility]08-08-[facility] Progress note* Discharge Planning Note - Rohini Mcintyre RN - 06/21/2025 12:44 PM EDT DISCHARGE PLANNING NOTE PT/OT rec SNF. CN called and left Voicemail for pts . Pt not appropriate for [facility]. Need SNF choices. CN also sent SNF list Via careport to pts cell phone to select choices. Await response. Rohini [facility]in[facility]re [facility] [id number] Progress note* PT/OT/CMV DRIVER - LU Enriquez - 06/21/2025 9:58 AM EDT Occupational Therapy Re-Evaluation Discharge Recommendations for Safe Patient Transition Discharge Recommendations: Post acute - moderate Post Acute Moderate Rehab Needs: Recommend moderate intensity rehab, Tolerate 1- 2 hrs of therapy 3-5 days/wk, Subacute or chronic functional impairment Current Impairments Informing Therapy Recommendation: Ambulation status/safety, Cognition, Fall risk, ADL status, Endurance level, Communication needs Modified [place] Level of Disability: Moderately severe disability 0= [...] None Scoring Daily Activity Raw Score: 14 [facility] G Code Modifier: CK Modified chip index: 04/02 Occupational Profile Patient seen for OT eval on 06-19-2025. Patient now seen for OT re-eval to update goals due to improved level of alertness and ability to participate in therapy. Patient admitted with left side weakness and aphasia. 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 History of A-fib on coumadin and diabetic. Continue to recommend retirement facility. Patient with episode of decreased responsiveness with listing to the left while on commode for 1-2 minutes. Once alert patient was nauseated. RNLauren called to room. Patient assisted from stephanie gomes and MD in room. See below for past medical and past surgical history. Past Medical History: Diagnosis Date Atrial fibrillation ([facility]) BPH (benign prostatic hyperplasia) Broken nose CVA (cerebral vascular accident) ([facility]) 06/17/2025 Diabetes ([facility]) Epistaxis Hypertension Hyponatremia secondary to SIADH Hypothyroid [...] Equipment: waker, chair alarm, gait belt, telemetry. Telemetry/Factory Process Workers: Yes Oxygen Used: room air Other: (S) [...] was not able to verbalize or followcommands. RNLauren called. Patient after 1-2 minutes aroused. patient [...] Patient will perform toilet transfers with Modified [place] Dates: Start: 06/21/25 Expected End: 07/19/25 Description: [...] CVA (cerebral vascular accident) ([facility]) [facility] Progress note* PT/OT/CMV DRIVER - Ayaan Campos, PT - 06/21/2025 9:56 [...] 6 Clicks: Basic Mobility Raw Score: 15 [facility] Code Modifier: CK SwePASS score = 23/36 [...] Past Medical History: Diagnosis Date Atrial fibrillation ([facility]) BPH (benign prostatic hyperplasia) Broken nose CVA (cerebral vascular accident) ([facility]) 06/17/2025 Diabetes ([facility]) Epistaxis Hypertension Hyponatremia secondary to SIADH Hypothyroid [...] gait belt, wheeled walker, IV, chair/bed alarm Telemetry/Factory Process Workers: Yes Oxygen Used: room air Other: (S) [...] CVA (cerebral vascular accident) ([facility]) [facility]08-[facility] Nurse Note* Lauren Gaona RN - 06/21/2025 9:27 AM EDT In chair, alert and responding. BP 98/65. Dr Crisostomo returns page and updated on events. [facility]08-08-20[facility] Nurse Note* Lauren Gaona RN - 06/21/2025 9:22 AM EDT Working with physical and occupational therapy. Ambulated to bathroom, had been alert and conversing, suddenly became unresponsive, staring and leaning to left. Resolved after 2-3 minutes, then more alert and was able to state name. Assisted to chair. Dr Kranthi gay. [facility]08-07-2025 Plan of care note* Plan of Care - Nicole Sparks RN - 06/20/2025 11:40 PM EDT Problem: Pain Goal: Patient goal is pain score less than 4, able to rest, and participant in treatment plan as appropriate Description: INTERVENTIONS: 1. Encourage patient or legal tax representative to report early pain and ask [...] per policy 9. Teach patient or legal tax representative interventions for comforting Outcome: Progressing Note: [...] at the bedside 7. Instruct patient/ patient tax representative about use of safety devices 8. Include patient/ patient tax representative in decisions related to safety Outcome: [...] hygiene technique. 7. Identify and instruct patient/patient tax representative in use of appropriate isolation precautionsfor identified infection/symptoms. 8. Provide and discuss with patient/patient tax representative on educational MDRO sheet. 9. Encourage and monitor nutritional status daily and consult stations superintendent if indicated. 10. Implement neutropenic guidelines as needed. Outcome: Progressing Note: Evaluation of progress towards goal: No s/s of infection at this time Problem: Knowledge Deficit Goal: Patient/patient tax representative demonstrates understanding of disease process, treatment [...] Score of =/> 25 or indicated by [facility] Assessment Goal: Patient should be free from fall Description: Interventions: 1. [place] to environment 2. Hourly rounds addressing the [...] non-skid footwear 11. Teach patient and patient tax representative to maintain environment for safety and [...] (cane, walker) within reach 19. Request patient tax representative bring adaptive equipment/mobility aids from home or obtain and provide as needed 20. Consult pharmacy regarding effects of med's affecting mobility, cognition, and alternatives 21. Obtain physician order for PT if risk factors associated with mobility are present 22. Obtain physician order for OT as appropriate 23. Utilize diversional activities 24. Educate patient and patient tax representative how to maintain a safe environment during visitationtimes (notify nurse prior to leaving bedside) 25. Consider appropriateness of medical or non-chief medical officer 26. Set up voiding schedule as appropriate (every 2 hours) Outcome: Progressing Note: Evaluation of progress towards goal: pt free from fall at this time Problem: Knowledge Deficit Goal: Patient/patient tax representative demonstrates understanding of disease process, treatment [...] alert and oriented to person and age Vocation [id number] Progress note* Situational Awareness - Gary Coronado MD - 06/20/2025 5:36 PM EDT [facility] Transfer Accept Note I have received a request for transfer of primary service for this patient from the neurology team care of neurology attending, clinical handoff received from Neurology resident. [facility] will assume careas primary team of this patient 7:00 a.m. 06/21/2025. [employer] Work Phone: 1(951) 523-409808-07-2025 Plan of care note* Plan of Care [...] also shows no change in renal function. Vocation [id number] Consult note* Richa Beyer MD - 06/20/2025 1:56 PM EDTAssociated Order(s): IP CONSULT TO PHYSICAL MEDICINE REHAB Images from the original note were not included. PHYSICAL MEDICINE AND REHABILITATION CONSULT Date of Admission: 06/17/2025 1:38 PM Referring Physician: Mirian Carranza MD PCP: TANYA Lozano Chief Compliant: Principal Problem: CVA (cerebral vascular accident) ([facility]) Reason for Consultation: Rehabilitation Candidacy and Rehab Industrial Psychology Professor Physicians/Services Consulting Providers Provider Service Specialty MD [...] given to the patient and transferred to [facility]. CT perfusion study showed deficit in [...] positivefor - gait disturbance and muscular weakness [facility] Past Medical History: Diagnosis Date Atrial fibrillation ([facility]) BPH (benign prostatic hyperplasia) Broken nose CVA (cerebral vascular accident) ([facility]) 06/17/2025 Diabetes (CMS-HCC) Epistaxis Hypertension Hyponatremia secondary to SIADH Hypothyroid [...] End: 06:30 06/20/2025 This is a standard [facility] EEG monitoring reportusing scalp and ear electrodes [...] or primary neurological disorders. Yaquelin Esparza MD Drafter Commercial Neurology/Neurophysiology [place] [facility] Recent Results (from the past [...] Tubes. Procedure Abnormality Status --------- ------ PST TOP[[id number]] Final result Please view results for these [...] CVA (cerebral vascular accident) ([facility]) MRI is negative for ischemia Debility Gait [...] you for the referral. Richa Beyer MD [employer] Work Phone: [phone] 515-771408-07-2025 Progress note* Discharge Planning Note - Rohini Mcintyre RN - 06/20/2025 12:33 PM EDT DISCHARGE PLANNING NOTE Pt will need updated PT/OT notes sent to [facility]. When pt/ot worked w him yesterday they rec SNF, but he was much less alert. Pt doing better today. Therapy will work w him tomorrow morning 06/21to see if IPR appropriate. Barriers: IPR accept, pt/ot to see, precert. Rohini Mcintyre RN [facility]08-07-2025 Consult note* Maisha Vergara MD - 06/20/2025 [...] by mouth in the morning. Taking coenzyme [id number] E 100-5 mg-unit capsule Take 100 mg [...] anticoagulation MAISHA VERGARA MD [facility] ANY QUESTIONS FEEL FREE TO CALL: 1. OFFICE [phone] 2. ANSWERING SERVICE:[phone] YOU CAN CONTACT ME THROUGH [employer] SECURE CHAT DURING THE DAYTIME HOURS, IF NO RESPONSE AFTER 5 MINUTES CALL THE ANSWERING SERVICE This note was created with the assistance of a speech-recognition program. Although the intention is to generate a document that actually reflects the content of the visit, no guarantees can be provided that every mistake has been identified and corrected by editing. [facility]08-07-2025 Progress note* Discharge Planning Note - Brianna Verduzco - 06/20/2025 10:36 AM EDT DISCHARGE PLANNING NOTE I received a voice mail from Franc at [facility] phone [phone], she says she has left a few messages for an update for patient. This is the only vm I have received. Sending an [employer] chat to Rohini / Vivienne / Mesha with information [facility]08-06-2025 Plan of care note* Plan of Care - Nicole Sparks RN - 06/19/2025 11:13 PM EDT Problem: Pain Goal: Patient goal is pain score less than 4, able to rest, and participant in treatment plan as appropriate Description: INTERVENTIONS: 1. Encourage patient or legal tax representative to report early pain and ask [...] per policy 9. Teach patient or legal tax representative interventions for comforting Outcome: Progressing Note: [...] at the bedside 7. Instruct patient/ patient tax representative about use of safety devices 8. Include patient/ patient tax representative in decisions related to safety Outcome: [...] hygiene technique. 7. Identify and instruct patient/patient tax representative in use of appropriate isolation precautionsfor identified infection/symptoms. 8. Provide and discuss with patient/patient tax representative on educational MDRO sheet. 9. Encourage and monitor nutritional status daily and consult stations superintendent if indicated. 10. Implement neutropenic guidelines as [...] supplement as ordered 13. Collaborate with clinical stations superintendent 14. Include patient/ patient's tax representative in decisions related to nutrition Outcome: [...] Score of =/> 25 or indicated by [facility] Assessment Goal: Patient should be free from fall Description: Interventions: 1. [place] to environment 2. Hourly rounds addressing the [...] non-skid footwear 11. Teach patient and patient tax representative to maintain environment for safety and [...] (cane, walker) within reach 19. Request patient tax representative bring adaptive equipment/mobility aids from home or obtain and provide as needed 20. Consult pharmacy regarding effects of med's affecting mobility, cognition, and alternatives 21. Obtain physician order for PT if risk factors associated with mobility are present 22. Obtain physician order for OT as appropriate 23. Utilize diversional activities 24. Educate patient and patient tax representative how to maintain a safe environment during visitationtimes (notify nurse prior to leaving bedside) 25. Consider appropriateness of medical or non-chief medical officer 26. Set up voiding schedule as appropriate (every 2 hours) Outcome: Progressing Note: Evaluation of progress towards goal: pt free from fall at this time safety measures in place Vocation [id number] Progress note* PT/OT/CMV DRIVER - Ayaan Campos, PT - 06/19/2025 2:49 [...] P1/P2 occlusion. TNK given and transfer to [facility]. On arrival, NIHSS = 0 CT [...] Past Medical History: Diagnosis Date Atrial fibrillation ([facility]) BPH (benign prostatic hyperplasia) Broken nose CVA (cerebral vascular accident) ([facility]) 06/17/2025 Diabetes ([facility]) Epistaxis Hypertension Hyponatremia secondary to SIADH Hypothyroid Lumbar spondylosis TIA (transient ischemic attack) Past Surgical History: Procedure Laterality Date NECK SURGERY plate in neck per Modified [place] Level of Disability: Severe disability 0= No [...] tolerated Equipment: repositioning sling, IV, bed alarm Telemetry/Factory Process Workers: Yes Oxygen Used: room air Other: high fall risk, L sided weakness, aphasia Subjective Physical Therapy Comments: Pt lethargic this date, able to awaken but drifts off and difficulty following most commands - ERIN Palumbo aware Pain Assessment Pain Assessment: (Pt indicated back pain with supine to sit and with L hip ROM but unable to localize or rate due to cognition) Home Living Type of Home: House Home Layout: One level, Able to live on main level with bedroom/bathroom, Stairs to enter with rails Stairs to Enter: 2 from engraver machine Rails: Right Stairs in Home: 0 Bathroom Shower/Tub: Walk-in shower Bathroom Toilet: Standard Home Equipment: Rolling walker Other : Home info from EMR review of recent therapy eval at [facility] - pt not able to answer questionsthis date and no family present. 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) [facility]08-06-2025 Progress note* PT/OT/CMV DRIVER - Veronica Rivera OTR/Krishan - 06/19/2025 2:48 PM EDT Occupational Therapy Evaluation Discharge Recommendations for Safe Patient Transition Discharge Recommendations: Post acute - moderate Post Acute Moderate Rehab Needs: Recommend moderate intensity rehab, Tolerate 1- 2 hrs of therapy 3-5 days/wk, Subacute or chronic functional impairment Current Impairments Informing Therapy Recommendation: Ambulation status/safety, Cognition, Fall risk, ADL status, Communication needs, Endurance level Modified [place] Level of Disability: Severe disability 0= No [...] Activity Raw Score: 12 [facility] G Code Modifier: CL Modifed [...] Past Medical History: Diagnosis Date Atrial fibrillation ([facility]) BPH (benign prostatic hyperplasia) Broken nose CVA (cerebral vascular accident) ([facility]) 06/17/2025 Diabetes ([facility]) Epistaxis Hypertension Hyponatremia secondary to SIADH Hypothyroid [...] per early mobility guidelines. Equipment: telemetry, IV Telemetry/Factory Process Workers: Yes Oxygen Used: room air Other: fall [...] CVA (cerebral vascular accident) ([facility]) Vocation [id number] Nurse Note* Deepali Mathew RN - 06/19/2025 10:55 AM EDT RN concerned as patient is extremely drowsy not following commands or speaking, RN called neuro resident Dr. Davis who states she thinks patient is just tired and will re assess later. [facility] [id number] Progress note* Discharge Planning Note - Dawson [...] Home with home health services Facility/Service Name [facility] Case discussed in daily transition rounds and chart reviewed by CN. Barriers to discharge include PT/OT, PMR to see, Discharge Plan remains: Home with HHC vs IPR. [facility] will accept. [facility]- will need PT/OT notes as soon as they are in. CN will continue to follow and is available should any further needs arise. - Dawson Yost RN 06/19/25 8:40 AM [facility]08-05-2025 Plan of care note* Plan of Care - Leigha Eden RN - 06/18/2025 10:49 PM EDT Problem: Pain Goal: Patient goal is pain score less than 4, able to rest, and participant in treatment plan as appropriate Description: INTERVENTIONS: 1. Encourage patient or legal tax representative to report early pain and ask [...] per policy 9. Teach patient or legal tax representative interventions for comforting Outcome: Progressing Note: [...] at the bedside 7. Instruct patient/ patient tax representative about use of safety devices 8. Include patient/ patient tax representative in decisions related to safety Outcome: [...] hygiene technique. 7. Identify and instruct patient/patient tax representative in use of appropriate isolation precautionsfor identified infection/symptoms. 8. Provide and discuss with patient/patient tax representative on educational MDRO sheet. 9. Encourage and monitor nutritional status daily and consult stations superintendent if indicated. 10. Implement neutropenic guidelines as needed. Outcome: Progressing Note: Evaluation of progress towards goal: Pt should remain free from infection during this shift. Standard precautions used during care. Problem: Knowledge Deficit Goal: Patient/patient tax representative demonstrates understanding of disease process, treatment [...] be free from fall Description: Interventions: 1. [place] to environment 2. Hourly rounds addressing the [...] non-skid footwear 11. Teach patient and patient tax representative to maintain environment for safety and [...] (cane, walker) within reach 19. Request patient tax representative bring adaptive equipment/mobility aids from home or obtain and provide as needed 20. Consult pharmacy regarding effects of med's affecting mobility, cognition, and alternatives 21. Obtain physician order for PT if risk factors associated with mobility are present 22. Obtain physician order for OT as appropriate 23. Utilize diversional activities 24. Educate patient and patient tax representative how to maintain a safe environment during visitationtimes (notify nurse prior to leaving bedside) 25. Consider appropriateness of medical or non-chief medical officer 26. Set up voiding schedule as appropriate (every 2 hours) Outcome: Progressing Note: Evaluation of progress towards goal: Pt should remain free from fall during this shift. Bed in lowest position and locked, side rails up /4, personal items and call light within reach, non skid socks applied, environment clear of hazards. [facility] [employer] [id number] Nurse Note* Lauren Gaona RN - 06/18/2025 6:26 PM EDT Patient confused, on heparin drip, constantly trying to get out of bed, hitting, kicking and tryingto bite staff. Unable to follow direction. Dr Davis notified, says will order seroquel. Notified ofQT from EKG done 06/17 at [place]. [facility] [employer] [id number] Progress note* Discharge Planning Note - Martina Mckeon - 06/18/2025 1:25 PM EDT DISCHARGE PLANNING NOTE Referral sent to [facility] in [place] (P# ; F# ) [facility]08-05-2025 Progress note* Discharge Planning Note - Brianna Verduzco - 06/18/2025 1:04 PM EDT DISCHARGE PLANNING NOTE Referral sent to. [facility] in [place], [place] (P# ; F# ) [facility]08-05-2025 Progress note* Discharge Planning Note - Dawson [...] Acute rehab, Home with home health services Blood Bank Calendar Control Clerk met with patient, introduced self, and explained role. Patient educated on safe discharge plan. Pt admitted 06/17/2025 with CVA (cerebral vascular accident) (CMS-HCC) [I63.9] per chart review. Consults: Neurology Discharge Barriers per Daily Transition Rounds and chart review: PT/OT, s/p TNK- bedrest, MRi, echo. Past Medical History: Diagnosis Date Atrial fibrillation ([facility]) BPH (benign prostatic hyperplasia) Broken nose CVA (cerebral vascular accident) ([facility]) 06/17/2025 Diabetes ([facility]) Epistaxis Hypertension Hyponatremia secondary to SIADH Hypothyroid [...] patient to appointments, shopping and assisting with rug repairer. Caregiver's personal limitations include Patient's feels she [...] vs acute rehab. PCP: TANYA Lozano Pharmacy: [facility] PCP and pharmacy confirmed with patient. CN offered to assist with follow up appointment arrangements; . TANYA Lozano added to Follow Up Providers for Summary of Care communication. Per patient self-report: Drug use: denies Smoking: denies ETOH Use: rarely Current discharge plan is: Home with [facility] vs acute rehab pending PT/OT eval. CN spoke with patient'swife she has used [facility] in past. Tasked to send referrals to [facility] and to [facility]. Services Requested: Services Requested Patient expects to [...] Evaluation of progress towards goal: Home with [facility] Autogenerated Goal Will continue to follow as plan of care develops. CN discussed benefits and importance of medication compliance and follow ups. Please feel free to reach out for any discharge planning questions. - Dawson Yost RN 06/18/25 12:24 PM [facility]08-05-2025 Progress note* PT/OT/CMV DRIVER - Zaire Sierra CCC- CMV DRIVER - 06/18/2025 10:35 AM EDT Speech Therapy Evaluation Bedside Swallow/Feeding Evaluation Speech & Language Cognitive Evaluation Discharge Recommendations for Safe Patient Transition CMV DRIVER Post Discharge Therapy Recommendations: Continue ST services [...] decline resulting from CVA. Prognosis Services: Skilled CMV DRIVER services to address above deficits Prognosis/Potential: Good Considerations: Age, Cognition Discharge Recommendations for Safe Patient Transition CMV DRIVER Post Discharge Therapy Recommendations: Continue ST services [...] should be further evaluated. Prognosis Services: Skilled CMV DRIVER services to address the above deficits Prognosis/Potential: [...] Dysphagia Problem: Swallowing Dates: Start: 06/18/25 Disciplines: CMV DRIVER Goal: STG: Patient will complete safety strategies independently during PO intake 90% of the time Dates: Start: 06/18/25 Expected End: 07/22/25 Disciplines: CMV DRIVER Template: ST - Rehab Speech Problem: Auditory Comprehension Dates: Start: 06/18/25 Disciplines: CMV DRIVER Goal: LTG: Patient will comprehend communication related to basic medical and social needs and utilize compensatory strategies to maintain safety in a functional living environment Dates: Start: 06/18/25 Expected End: 07/22/25 Disciplines: CMV DRIVER Goal: STG: Patient will answer simple yes/no questions with 90% accuracy with minimal cueing. Dates: Start: 06/18/25 Expected End: 07/22/25 Disciplines: CMV DRIVER Goal: STG: Patient will answer complex yes/no questions with 90% accuracy with minimal cueing Dates: Start: 06/18/25 Expected End: 07/22/25 Disciplines: CMV DRIVER Problem: Verbal Expression Dates: Start: 06/18/25 Disciplines: CMV DRIVER Goal: LTG: Patient will utilize compensatory strategies to communicate wants and needs effectively to different conversational partners, maintain safety and participate socially in a functional living environment Dates: Start: 06/18/25 Expected End: 07/22/25 Disciplines: CMV DRIVER Goal: STG: Patient will complete simple to complex divergent and convergent naming tasks with 90% accuracy with minimal cueing to improve thought organization Dates: Start: 06/18/25 Expected End: 07/22/25 Disciplines: CMV DRIVER Goal: STG: Patient will use word retrieval strategies during structured interactions to improve functional communication during activities of daily living with 90% accuracy with minimal cueing Dates: Start: 06/18/25 Expected End: 07/22/25 Disciplines: CMV DRIVER Speech Therapy Care Plan (Resolved) There are no resolved problems. Principal Problem: CVA (cerebral vascular accident) ([facility]) [facility]08-05-2025 Progress note* PT/OT/CMV DRIVER - LU Chino - 06/18/2025 7:37 AM EDT Occupational Therapy OT Type of Visit: Medical deferral Reason For Medical Deferral: Activity limitations Activity Limitations: Strict bedrest (Per TNK protocol. Will continue to follow.) [facility]08-05-2025 Progress note* PT/OT/CMV DRIVER - Ayaan Campos PT - 06/18/2025 7:28 AM EDT Physical Therapy PT Type of Visit: Medical deferral (strict bedrest s/p TNK per protocol) Reason For Medical Deferral: Activity limitations Activity Limitations: Strict bedrest Will check back as appropriate. [facility]08-05-2025 Plan of care note* Plan of Care - Lin Rhodes RN - 06/18/2025 7:14 AM EDT Problem: Pain Goal: Patient goal is pain score less than 4, able to rest, and participant in treatment plan as appropriate Description: INTERVENTIONS: 1. Encourage patient or legal tax representative to report early pain and ask [...] per policy 9. Teach patient or legal tax representative interventions for comforting Outcome: Progressing Note: [...] at the bedside 7. Instruct patient/ patient tax representative about use of safety devices 8. Include patient/ patient tax representative in decisions related to safety Outcome: [...] hygiene technique. 7. Identify and instruct patient/patient tax representative in use of appropriate isolation precautionsfor identified infection/symptoms. 8. Provide and discuss with patient/patient tax representative on educational MDRO sheet. 9. Encourage and monitor nutritional status daily and consult stations superintendent if indicated. 10. Implement neutropenic guidelines as needed. Outcome: Progressing Note: Evaluation of progress towards goal: Labs and vitals monitored as ordered. Medications administered as ordered. Patient remains free from infection at this time. Problem: Moderate - High Risk Fall Score Description: Valenzuela Fall Score of =/> 25 [facility] Assessment Goal: Patient should be free from fall Description: Interventions: 1. [place] to environment 2. Hourly rounds addressing the [...] non-skid footwear 11. Teach patient and patient tax representative to maintain environment for safety and [...] (cane, walker) within reach 19. Request patient tax representative bring adaptive equipment/mobility aids from home or obtain and provide as needed 20. Consult pharmacy regarding effects of med's affecting mobility, cognition, and alternatives 21. Obtain physician order for PT if risk factors associated with mobility are present 22. Obtain physician order for OT as appropriate 23. Utilize diversional activities 24. Educate patient and patient tax representative how to maintain a safe environment during visitationtimes (notify nurse prior to leaving bedside) 25. Consider appropriateness of medical or non-chief medical officer 26. Set up voiding schedule as appropriate (every 2 hours) Outcome: Progressing Note: Evaluation of progress towards goal: Fall risk assessment preformed and safety measures in place. Education given to family/patient. Will continue to monitor. [facility] [employer] [id number] Plan of care note* Plan of Care - Rich Nelson RN - 06/17/2025 7:23 PM EDT Problem: Pain Goal: Patient goal is pain score less than 4, able to rest, and participant in treatment plan as appropriate Description: INTERVENTIONS: 1. Encourage patient or legal tax representative to report early pain and ask [...] per policy 9. Teach patient or legal tax representative interventions for comforting Outcome: Progressing Note: [...] at the bedside 7. Instruct patient/ patient tax representative about use of safety devices 8. Include patient/ patient tax representative in decisions related to safety Outcome: [...] hygiene technique. 7. Identify and instruct patient/patient tax representative in use of appropriate isolation precautionsfor identified infection/symptoms. 8. Provide and discuss with patient/patient tax representative on educational MDRO sheet. 9. Encourage and monitor nutritional status daily and consult stations superintendent if indicated. 10. Implement neutropenic guidelines as needed. Outcome: Progressing Note: Evaluation of progress towards goal: Patient remains free from signs of infection at this time. Will continue to monitor. Problem: Knowledge Deficit Goal: Patient/patient tax representative demonstrates understanding of disease process, treatment [...] Score of =/> 25 or indicated by [facility] Assessment Goal: Patient should be free from fall Description: Interventions: 1. [place] to environment 2. Hourly rounds addressing the [...] non-skid footwear 11. Teach patient and patient tax representative to maintain environment for safety and [...] (cane, walker) within reach 19. Request patient tax representative bring adaptive equipment/mobility aids from home or obtain and provide as needed 20. Consult pharmacy regarding effects of med's affecting mobility, cognition, and alternatives 21. Obtain physician order for PT if risk factors associated with mobility are present 22. Obtain physician order for OT as appropriate 23. Utilize diversional activities 24. Educate patient and patient tax representative how to maintain a safe environment during visitationtimes (notify nurse prior to leaving bedside) 25. Consider appropriateness of medical or non-chief medical officer 26. Set up voiding schedule as appropriate (every 2 hours) Outcome: Progressing Note: Evaluation of progress towards goal: Fall risk assessment preformed and safety measures in place. Education given to family/patient. Will continue to monitor. Additional Comments: [facility]07-25-2025 NotePatient Education Nephrology Hyponatremia Hyponatremia is when [...] Follow these instructions at home: ??? Take chsf-drw-cluhryl and prescription medicines only as told by [...] provider. Document Revised: 05/11/2022 Document Reviewed: 05/11/2022 [employer] Patient Education ? 2023 NxThera.[facility] 06-05-2025 History of Present illness Narrative* Flip Dubose RN - 06/05/2025 7:02 PM EDT Pt discharge- pt taken downstairs by wheelchair by son and [facility] . Son givenmed s, discharge instructions . 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 . Nicole spoke with Gladys , Kishore by phone. . Kishore is adament, despite [place] mild confusion, that she and her son want to drive Alexx back home to [place] to care for him at home tonight * Milagro Lloyd - 06/05/2025 5:56 PM EDT CLINICAL PHARMACY NOTE: MEDS TO BEDS Total # of Prescriptions Filled: 2 The following medications were delivered to the patient: Cephalexin 500mg Lisinopril 10mg Additional Documentation: delivered to patient in room 3008 06/05 at 5:15pm. Co- pay $0.71 srivastava. * Starr Jackman RP - 06/05/2025 11:30 AM EDT Pharmacy Note Warfarin Consult follow-up Recent Labs 06/05/25 0449 INR 1.9 Recent Labs 06/02/25 1308 06/03/25 0618 HGB 12.3* 12.3* HCT 36.5* 35.2* PLT 147 See Reflexed IPF Result Warfarin dose APARTMENT HOUSE MANAGER: 5 mg MWF and 2.5 mg [...] Will continue to follow. Starr Jackman PharmD BCPS BCCCP 06/05/2025 11:23 AM * Venessa Najera, PT - 06/05/2025 10:32 AM EDT Physical Therapy Facility/Department: [facility] Initial Evaluation Patient Name: Dariel [...] within reach, Gait belt, Left in chair -[facility] Basic Mobility - Inpatient How much [...] 3-5 steps with a railing?: A Little [facility] Inpatient Mobility Raw Score : 22 [facility] Inpatient T-Scale Score : 53.28 Mobility Inpatient [facility] 0-100% Score: 20.91 Mobility Inpatient [facility] G-Code Modifier : CJ Restrictions/Precautions [...] Level of Assist for Transfers: Independent Active Asset Protection Manager: Yes Mode of Transportation: Truck Occupation: Retired [...] OSMOLARITY: Lab Results Component Value Date/Time JES 590 06/04/2025 01:00 AM ASSESSMENT Known history of [...] Deann Carter MD Internal Medicine Resident, PGY-2 [place], [place] 06/05/2025,10:28 AM Attending Physician Statement I [...] do so. Jourdan Guan MD , MD * Flaco Ren MD - 06/05/2025 7:23 AM EDT INTENSIVE CARE UNIT Resident Physician Progress Note Patient - Dariel Zabala Date of Admission - 06/02/2025 10:01 AM Date of Evaluation - 06/05/2025 Room and Bed Number - 3008/3008-01 Hospital Day - 3 SUBJECTIVE: HISTORY OF PRESENT ILLNESS: Dariel Zabala is a 85 y.o. with past medical history of A-fib on Coumadin, hypertension, type 2 diabetes, BPH, SIADH, hyponatremia, hypothyroidism who [facility] after a fall which resulted in nasal bone fracture. Patient initially presented to [facility] yesterday and was treated with Afrin and nasal pressure, patient was discharged home with ENT follow-up. When patient returned home he blew his nose and resulted in brisk bleeding from the left nare prompting him to return to the ER yesterday evening. He had bilateral nasal packing with Rhino Rocket's placed and was transferred to [facility] evaluation. Patient was seen by ENT upon [...] this chart was generated using voice recognition FLIP4NEW dictation software. Although every effort was made to ensure the accuracy of this automated basin cleaner, some errors in basin cleaner may have occurred. * Geo Rehman [facility] - 06/04/2025 3:32 PM EDT Pharmacy Note Warfarin Consult follow-up Recent Labs 06/04/25 1423 INR 1.8 Recent Labs 06/02/25 1308 06/03/25 0618 HGB 12.3* 12.3* HCT 36.5* 35.2* PLT 147 See Reflexed IPF Result Warfarin dose APARTMENT HOUSE MANAGER: 5 mg MWF and 2.5 mg [...] MIRELES MD Pediatric Otolaryngology-Head and Neck Surgery [facility] Otolaryngology group Office ph# [phone] Also available in EDITION [employer] * Rowena Duong [facility] - 06/03/2025 11:31 AM EDT Pharmacy Note [...] from the original note were not included. [facility] Office: [phone] Viktor Monet DO, Jermaine Gustafson DO, Brigida [...] Duckworth MD, Tiffany Francis MD, Valerie Trivedi, AVELINA, Keren Gutierrez, AVELINA, Beto Guzman, INSURANCE CONSULTANT, Kemi Hdz, CRISTA, Janelle Luna, AVELINA, Celena Johnson, AVELINA, Annia Rogers, AVELINA, Christina Cuevas, AVELINA, Marline Vila PA-C, Adore Cueto, AVELINA, Emily Chiang, INSURANCE CONSULTANT, Maria Elena De La Torre, INSURANCE CONSULTANT, Venessa Mitchell, AVELINA, RAMÓN FormanC, Rachel Nascimento PA-C, Lorna Salazar, AVELINA, Edwina Cole, MASTER PLUMBER, Alex Castillo, AVELINA, Leelee Easley, AVELINA [facility] IN-PATIENT SERVICE [facility] Progress Note 06/03/2025 8:19 AM Name: Dariel Zabala Acct: [id number] Room: [address] [place] [address] Day: 1 Admit Date: 06/02/2025 10:01 AM [...] hypertension, type2 diabetes, SIADH initially presented to [place] emergency department for nosebleeding after mechanical fall out of a chair. CT scan reportedly showed nasal bone fracture. He was transferred to [place] for ENT evaluation. ENT deflated nasal packings [...] , PHART , PH , POCPCO2 , AKZ3LCY , PCO2 , POCPO2 , PO2ART , PO2 , POCHCO3 , RHW1NJZ , HCO3 , NBEA , PBEA , BEART , BE , THGBART , THB , HAT1RKX , XXGR6XRY , R2DSTLNG , O2SAT , FIO2 No results found [...] DAIGLE MD Pediatric Otolaryngology-Head and Neck Surgery [facility] Otolaryngology group Office ph# [phone] Also available in Cardia * Juju Garcia RPH - 06/02/2025 2:42 PM EDT Pharmacy Note [...] 06/02/2025 10:44 AM EDT Pt arrived from [facility] via [facility]. Pt A&Ox4, admission database complete. Mediations reconciled. Pt put on telemetry and continuous pulse ox. Vitals stable. Bilat rhino rockets in place. No active epistaxis at this time. Primary team made aware of arrival. Blood Bank Calendar Control Clerk called pt's to make her aware if the transfer, no answer left message. documented in this encounterBon [facility] Hospital course Narrative* Pepito Grant MD - 06/05/2025 3:29 PM EDT Images from the original note were not included. [facility] Department of Internal Medicine - Critical Care Service INPATIENT DISCHARGE SUMMARY PATIENT IDENTIFICATION: NAME: Dariel Zabala : 1940 Acct: [id number] Admit Date: 06/02/2025 Discharge date: No discharge [...] in nasal bone fracture. [facility] and was treated with Afrin and nasal pressure, patient wasdischarged home with ENT follow-up. When patient returned home he blew his nose and resulted in brisk bleeding from the left nare prompting him to return to the ER yesterday evening. He had bilateralnasal packing with Rhino Rocket's placed and was transferred to [facility] for ENT evaluation. Patient was [...] 1 weeks with PCP, in 1 weeks architectural inspector Time Spent on discharge is more than 15 minutes in the examination, evaluation, counseling and review of medications and discharge plan. Pepito Grant MD Internal Medicine Resident Critical Care Service Cosigned by Flaco Ren MD at 06/05/2025 5:16 PM EDT documented in this encounterBon [facility]07-[facility] Hospital Discharge instructions* Discharge Instructions* Pepito [...] 2-3 Please follow-up with your PCP and architectural inspector (kidney doctor )for continued care Please go to the nearest ER if you have worsening of current symptoms or started experiencing new symptoms like shortness of breath, chest pain, palpitations, dizziness, loss of consciousness, any bleed from the nose for further evaluation management documented in this encounterBon [facility]07-[facility]-2025 NoteNurse Consultation Note Reason for Visit [...] 03/31/2015 Recorded influenza virus vaccine, inactivated 08/02/2014 [facility]ed[facility]06-[facility]-2025 NotePatient Education Cardiovascular Atrial Fibrillation [...] these instructions at home: Medicines ??? Take jwka-ezb-aizziaw and prescription medicines only as told by [...] provider. Document Revised: 07/20/2023 Document Reviewed: 07/20/2023 Tetra Discovery Patient Education ? 2023 NxThera. Caregiving Fall Prevention in the Home, Adult Falls can cause injuries and can happen to people of all ag (more content not included)...[facility]02-17-2025 NoteNurse Consultation Note Reason for [...] 03/31/2015 Recorded influenza virus vaccine, inactivated 08/02/2014 RecordedPrem[facility]02-10-2025 NotePatient Education Cardiovascular Atrial Fibrillation [...] signals of the heart. ??? An ambulatory library monitor to record your heart's activity for [...] the main warning s (more content not included)...[facility] 11-28-2024 History of Present illness Narrative* Jose L Chow NP - 11/28/2024 1:00 PM EST Images from the original note were not included. HISTORY OF PRESENT ILLNESS: Dariel Zabala is an 84 y.o. @ male. 1ST PO LT CTR 11/19/24 (9 DAYS) @ [facility] ([facility]). PAIN DIFFUSE IN HAND/WRIST. KEEPS COVERED [...] for requiring urgent evaluation. Jose L Chow APRN-INSURANCE CONSULTANT documented in this encounterTenet St. [id number] History of Present illness Narrative* Emiliano Escamilla MD - 11/26/2024 10:30 AM EST Images from the original note were not included. Subjective Patient ID: Dariel Zabala is a 84 y.o. male who presents for Ear Problem (Hearing aid battery in ear.) Pt seen in [facility] ED last Tuesday and DARNELL battery noted in RT EAC No family history on file. Active Ambulatory Problems Diagnosis Date Noted ASCVD (arteriosclerotic cardiovascular disease) ([facility]/HCC) 11/26/2024 Atrial fibrillation (CMS/HCC) 08/22/2014 Back spasm 11/26/2024 Benign hypertension (CMS/HCC) 11/26/2024 Body mass index (BMI) of 25.0-25.9 in adult 11/26/2024 Benign prostatic hyperplasia 11/26/2024 Carotid artery occlusion 11/26/2024 Carpal tunnel syndrome 08/23/2007 Cervical disc disease with myelopathy 2011 Diabetes mellitus ([facility]/HCC) 11/26/2024 ED (erectile dysfunction) 11/26/2024 Encounter for surveillance of abnormal nevi 11/26/2024 Erectile dysfunction due to arterial insufficiency 11/26/2024 Fall at home 11/26/2024 Generalized osteoarthritis 09/12/2012 Hard of hearing 11/26/2024 Resolved Ambulatory Problems Diagnosis Date Noted No Resolved Ambulatory Problems No Additional Past Medical History Past Surgical History: Procedure Laterality Date CARPAL TUNNEL RELEASE NECK SURGERY TRIGGER FINGER RELEASE Right 03/26/2024 [facility] () No Known Allergies Current Outpatient Medications [...] NOSTRIL ONCE DAILY AT BEDTIME [DISCONTINUED] HYDROcodone-acetaminophen (Merrifield) 5-325 MG tablet [DISCONTINUED] tiZANidine (Zanaflex) 4 [...] dementia. Dr Garcia notified. documented in this encounterTenet St. [id number] NoteProgress Note-Physician Patient: DARIEL ZABALA Age: 84 years Sex: Male : 1940 Associated Diagnoses: None Author: Carmine COHN, Chau Pineda Postoperative Information Postoperative disposition: Postoperative disposition: To PACU. Optimetrix number: Optimetrix number [id number]. Anesthetic utilized: General. Health Status Allergies: Allergic [...] Discharge when meets criteria ( To home ).[facility] CenterComment on above:Result Comment: Electronically Signed By: Chau Lou MD\.br\Date and Time Signed: 11/19/24 15:19 EST 11-19-2024 Evaluation + Plan noteExtracted from: Title:ANES Post-operative Note---General Author: Chau Lou MD Date:11/19/24 Plan Transfer/Discharge: Transfer/Discharge Discharge when meets criteria ( To home ). Extracted from: Title:ANES Pre-operative Note 2022 Author:Chau Goode Date:11/19/24 Plan [place] Society of Anesthesiologists (ASA) physical status classification: Class III. Anesthetic Preoperative Plan: Anesthesia General. Future Appointments Appointment Date:12/12/2024 10:15:00 AM Scheduled Provider:Dixon Dubose PA-C [facility] Type:Cardiology Follow Up (FT) Appointment Date:05/02/2025 08:00:00 AM Scheduled Provider: Location:[facility] Appointment Type:FM Medicare Wellness Subsequent Future Scheduled Tests Laboratory* Basic Metabolic Panel 11/13/24 [facility] 01-06-2025 NotePatient Education - Text [place], [place] [facility] CARPAL TUNNEL RELEASE INSTRUCTIONS [...] Patient Signature Axel Hernández, DO [facility] [address] [place] [address] Reviewed: 04-22[facility] NoteProgress Note-Physician Patient: DARIEL ZABALA Age: 84 years Sex: Male : 1940 Associated Diagnoses: None Author: Chau Lou MD Preoperative Information Anesthesia Preop Info: Time patient [...] tab(s), Refills(s) 0, [id number], cm, 06/11/24 12:53:00 EDT, Height/Length Dosing, 82, kg, 06/11/2412:56:00 EDT, Weight Dosing Sodium Chloride 1000 mg oral tablet, soluble: See Instructions, 30 tab(s), Refill(s) 0, Take one tablet daily, [id number] 178.6, cm, 11/01/24 9:21:00 EST, Height/Length Dosing, 81.3, kg, 11/01/24 9:21:00 EST, Weight Dosing Synthroid 25 mcg(0.025 mg) Tab: See Instructions, TAKE 1 TABLET DAILY ON AN EMPTY STOMACH, # 3 tab(s), Refills(s) 0, [id number] 178, cm, 08/07/24 10:59:00 EDT, Height/Length Dosing, 78.2, kg, 08/07/24 10:59:00 EDT, Weight Dosing atenolol 25 mg Tab: See Instructions, take 1/2 tab daily, # 90 tab(s), Refills(s) 1, Pharmacy: [facility], 178, cm, 09/10/24 13:01:00 EDT, Height/Length Dosing, 80.1, kg, 09/10/24 13:01:00 EDT, Weight Dosing finasteride 5 mg Tab: 5 mg = 1 tab(s), Oral, Daily, # 90 tab(s), Refills(s) 1, Pharmacy: [facility] #[id number], 178.6, cm, 11/01/24 9:21:00 EST, Height/Length Dosing, 81.3, kg, 11/01/24 9:21:00 EST, Weight Dosing fluticasone Nasal 0.05 mg/inh [place]: See Instructions, 48 mL, Refill(s) 1, USE 1 SPRAY IN EACH NOSTRIL TWICE A DAY, [id number], 178, cm, 08/28/24 14:50:00 EDT, Height/Length Dosing, 82.2, kg, 08/28/24 14:50:00 EDT, Weight Dosing gabapentin 300 mg Cap: 300 mg = 1 cap(s), Oral, Daily, # 90 cap(s), Refills(s) 1, Pharmacy: [facility], 178, cm, 07/03/24 10:05:00 EDT, Height/Length Dosing, 80.8, kg, 07/03/2410:05:00 EDT, Weight Dosing glimepiride 2 mg Tab: See Instructions, TAKE 1 TABLET DAILY, # 3 tab(s), Refills(s) 0, Pharmacy: [facility], 178, cm, 08/07/24 10:59:00 EDT, Height/Length Dosing, 78.2, kg, 08/07/24 10:59:00 EDT, Weight Dosing omeprazole 40 mg Cap-DR: 40 mg = 1 cap(s), Oral, Daily, # 90 cap(s), Refills(s) 1, Pharmacy: [facility], 178, cm, 08/28/24 14:50:00 EDT, Height/Length Dosing, 82.2, kg, 08/28/24 14:50:00 EDT, Weight Dosing pravastatin 40 mg Tab: 40 mg = 1 tab(s), Oral, Daily, # 90 tab(s), Refills(s) 3, Pharmacy: [facility], 178, cm, 09/10/24 13:01:00 EDT, Height/Length Dosing, 80.1, kg, 09/10/24 13:01:00 EDT, Weight Dosing sildenafil 100 mg Tab: 100 mg = 1 tab(s), Oral, Daily, PRN for erectile dysfunction, 1 hour before sexual activity, # 5 tab(s), Refills(s) 0, Pharmacy: [facility], 178, cm, 07/03/24 10:05:00 EDT, Height/Length Dosing, 80.8, kg, 07/03/24 10:05:00 EDT,... tamsulosin 0.4 mg Cap: 0.4 mg = 1 cap(s), Oral, Daily, # 90 cap(s), Refills(s) 1, Pharmacy: [facility], 178, cm, 09/10/24 13:01:00 EDT, Height/Length Dosing, 80.1, kg, 09/10/2413:01:00 EDT, Weight Dosing Documented Medications Documented CoQ10: See Instructions, PRN Prophylaxis, Refills(s) 0 D3: See Instructions, Oral Daily- patient states he takes 500 once a day, Refills(s) 0 Jantoven 5 mg oral tablet: 5 mg = 1 tab(s), Oral, Daily, Refills(s) 0, Blood Thinner (more content not included)...[facility] Medical CenterComment on above:Result Comment: Electronically Signed By: Carmine COHN, Chau Pineda\.br\Date and Time Signed: 11/19/24 11:51 [id number] Hospital Discharge instructions Patient Education 11/12/2024 12:08:21 Hernández - Carpal Tunnel Release Instructions (Custom) (CUSTOM) [place], [place] [facility] CARPAL TUNNEL RELEASE INSTRUCTIONS [...] Patient SignatureMiclolis Bill Hernández, DO [facility] [address] [place] [id number] Reviewed: 6-11/19/2024 13:10:26 Post Op Patient Instructions - FT (Custom) (CUSTOM) Follow Up Care 10/03/2024 14:28:43 With:GORDO Weller Address: [address] [place] [phone]- Business (1) When:11/28/2024 13:00:00 Comments:Keep scheduled appointment. Call for any problems. [facility] 12-30-2024 NotePatient Education - Text [place], [place] [facility] CARPAL TUNNEL RELEASE INSTRUCTIONS [...] Patient Signature Axel Hernández, DO [facility] [address] [place] [address] Reviewed: 04-22[facility]12-30-2024 NoteNurse Consultation Note Reason for [...] Daily, 1 refills fluticasone Nasal 0.05 mg/inh [place], See Instructions, Self Directed gabapentin 300 mg [...] 03/31/2015 Recorded influenza virus vaccine, inactivated 08/02/2014 RecordedPremier Health [facility]rium Medical Center11-15-2024 History of Present illness Narrative* Shala Farrell MD - 09/28/2024 9:[address] [facility] Patient: Dariel Zabala [address], [address] , Sex: 1940, Male [place] [phone] Height: 180 cm Ref Phys: Hernández fax [...] Doub=doublet; Fasc=fasciculation; FFE=full for effort; Fib=fibrillation; Myokym=myokymia; [place]=myotonic potential; N,0=normal; NR=no response; Polyph=polyphasia; Pos=positive [sharp] [...] available for comparison. Shala Farrell M.D. Diplomate, [place] Board of Psychiatry and Neurology (neurology, epilepsy, sleep medicine) Diplomate, [place] Board of Clinical Neurophysiology Diplomate, [place] Board of Preventive Medicine (clinical informatics) . documented in this [facility]10-07-2024 Telephone encounter Note* Telephone Encounter - Miguel Moe - 08/20/2024 10:50 AM EDT LVM to RC in regard to BUE referral from Dr. Hernández--Approved to schedule--25.00 co-pay will be applied to toward OOP. [facility] [id number] Miscellaneous Notes* Telephone Encounter - Miguel Moe - 08/20/2024 10:50 AM EDT LVM to RC in regard to BUE referral from Dr. Hernández--Approved to schedule--25.00 co-pay will be applied to toward OOP. documented in this [facility]05-13-2024 Hospital Discharge instructions Patient Education 03/26/2024 [...] condition: Doing activities that require a strong consultant internship. Having rheumatoid arthritis, gout, or diabetes. Being [...] splint on your hand. General instructions Take bmss-acg-lgssknz and prescription medicines only as told by [...] provider. Document Revised: 03/17/2020 Document Reviewed: 03/17/2020 [employer] Patient Education 2022 NxThera. Follow Up Care 03/01/2024 15:40:29 With:GORDO Weller Address: [address] [place], [place] [id number] Business (1) When:04/04/2024 10:15:00 Comments:Keep scheduled appointment [facility]01-05-2024 Evaluation note* Encounter Date Diagnosis Assessment Notes [...] sodium level at upcoming appt in January [employer] Other 12-20-2023 Evaluation note* Encounter Date Diagnosis [...] further dizziness symptoms would recommend f/u with [facility] as well. [employer] Other 11-17-2023 Evaluation note* Encounter Date Diagnosis Assessment Notes Treatment Notes Treatment Clinical Notes Sep, Type 2 diabetes mellitus (ICD-10 - E11.9) [employer] Other 11-17-2023 Miscellaneous Notes* Telephone Encounter - Venessa Riggins RN - 09/30/2023 12:29 PM EST Called patient back and reviewed plan from his call with Nurse Neon Molder at 11:36 AM. See my note Patient already called his PCP as advise and waiting call back for scheduling. He was hospital discharged on 08/26 for cognitive problems and low sodium. He finished his pills for low sodium today. NOC closing was given Conferenced him to [facility] for an appt with nephrology [...] have any questions, you can call Nurse customer solutions specialist back. * Telephone Encounter - Venessa Riggins RN - 09/30/2023 11:36 AM EST Patient calling with request for physician referral: Patient referred to nephrology and primary care Department. Patient denies any new or worsening symptoms of which a provider is not aware: Yes. Patient was discharged from [facility] on 08/26 for low sodium [...] none PCP luis appt. Conferenced him to [facility] and then call dropped. My [employer] and [employer] lost connection. NOC closing was given GO TO THE EMERGENCY ROOM OR CALL 911 IF: * You develop any new symptoms * Your condition worsens * You are concerned or anxious about your condition for any other reason. If you have any questions, you can call Nurse customer solutions specialist back. documented in this encounterWadsworth-Rittman [facility]11-08-2023 Evaluation note* Encounter Date Diagnosis Assessment Notes Treatment Notes Treatment Clinical Notes Sep, Hyponatremia (ICD-10 - E87.1) Recent sodium 136 at low end of normal, given significance of symptoms and recommendation of hospital for f/u will refer to nephrology patient requesting [place] Sep, Anticoagulant long-term use (ICD-10 - Z79.01) Follows with INR clinic through [facility]. Sep, Atrial fibrillation (ICD-10 - I48.91) Appears in NSR today, anticoagulated on Warfarin Sep, Hypothyroidism (ICD-10 - E03.9) Recent TFTs in normal range, clinically euthyroid, continue current dose of LT4 Sep, Type 2 diabetes mellitus (ICD-10 - E11.9) Recent a1c in good range at 5.6%, continue current dose of glimepiride. Sep, Immunization due (ICD-10 - Z23) [employer] Other 10-16-2023 Evaluation note* Encounter Date Diagnosis Assessment Notes Treatment Notes Treatment Clinical Notes Aug, Hyponatremia (ICD-10 - E87.1) [employer] Other 08-03-2023 Evaluation note* Encounter Date Diagnosis Assessment Notes Treatment Notes Treatment Clinical Notes Jun, Atrial fibrillation (ICD-10 - I48.91) Rate controlled, mild bradycardia but asymptomatic. Will continue current dose of atenolol. He is anticoagulated on Coumadin with goal INR 2-3, he is due for INR check. Will refer to coumadin clinic through [facility] Jun, Anticoagulant long-term use (ICD-10 - Z79.01) Jun, Hearing loss (ICD-10 - H91.90) Referral to local net developer Jun, Dermatitis (ICD-10 - L30.9) Can trial topical steroid PRN, discussed may be secondary to dry skin. Recommend daily use of lotion Jun, Hypothyroidism (ICD-10 - E03.9) Due for TFTs prior to next visit Jun, Type 2 diabetes mellitus (ICD-10 - E11.9) Due for a1c prior to next visit Jun, BPH (benign prostatic hyperplasia) (ICD-10 - N40.0) [employer] Other 08-03-2023 Reason for referral (narrative)* Reason Medication managemen t through [facility] - Coumadin management with INR goal 2-3 Diagnosis 1 Anticoagulant long-t erm use (Z79.01) Referral Organization [facility] Rodo Brown Referring Provider First Name Jada Referring Provider Last Name [facility] Referring Provider Specialty [facility] Referred Organization [facility] Referred Address [address], [place],[phone] Referred Provider Specialty Milvia felix Referral Priority Routine General Notes Gabrielle Reid 01/2023 01:34:29 PM >this is an order not a referral, clinical informed and will fax order over for standing order INR to [facility] Reason * FU 06/29 CALL he aring loss, issue with hearing aids Diagnosis 1 Hearing loss (H91.90 ) Referral Organization [facility] Rodo Brown Referring Provider First Name Jada Referring Provider Last Name [facility] Referring Provider Specialty [facility] Referred Organization [facility] Referred Address ,[place], [place],[address] Referred Provider Specialty Audiologists Referral Priority Routine General Notes Gabrielle Reid 01/2023 01:28:34 PM >referral received and faxed [employer] Other 04-27-2010 History of Past illness Narrative* Problem Noted Date Diagnosed Date Resolved Date Myalgia 03/10/2010 03/01/2011 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 and other lower urinary tract symptoms (LUTS) 08/11/2006 01/11/2013 Elevated prostate specific antigen (PSA) 03/07/2012 documented as of this encounter (statuses as of 09/30/2023) [facility] No data available for this section [facility] Future Appointments Appointment Date:03/08/2024 01:00:00 PM Scheduled Provider:Edwin Garcia MD Location:[facility] Appointment Type: Open Appointment Date:03/26/2024 01:45:00 PM Scheduled Provider: Location:[facility] Appointment Type:Surgery FT Appointment Date:05/01/2024 09:00:00 AM Scheduled Provider: Location:[facility] Appointment Type: Lab Draw Appointment Date:05/03/2024 08:00:00 AM Scheduled Provider: Location:[facility] Appointment Type: Medicare Wellness Subsequent Appointment Date:05/03/2024 09:00:00 AM Scheduled Provider:Edwin Garcia MD Location:[facility] [...] Date:05/03/2024 09:00:00 AM Scheduled Provider:Edwin Garcia MD Location:[facility] [...] Date:05/03/2024 09:00:00 AM Scheduled Provider:Edwin Garcia MD Location:[facility] Appointment Type: Open Appointment Date:05/25/2024 01:00:00 PM Scheduled Provider:Kashif Barnett MD [facility] [place] Appoint[facility] Type:Cardiology Follow Up (FT) Future Scheduled Tests Laboratory* PSA Screen, Total 02/02/24 * CBC w/ Auto Diff 02/02/24 * Comprehensive Metabolic Panel 02/02/24 * Lipid Panel 02/02/24 Radiology* Echo Transthoracic Complete 04/20/24 [facility] Future Appointments Appointment Date:05/03/2024 08:00:00 AM Scheduled Provider: Location:[facility] Appointment Type:FM Medicare Wellness Subsequent Appointment Date:05/03/2024 09:00:00 AM Scheduled Provider:Edwin Garcia MD Location:[facility] Appointment Type:FM Open Appointment Date:05/21/2024 10:00:00 AM Scheduled Provider: [facility] Type:CV Holter/Event (FT) Appointment Date:05/25/2024 01:00:00 PM Scheduled Provider:Kashif Barnett MD [facility] [place] Appoint[facility] Type:Cardiology Follow Up (FT) [facility] note Future Appointments Appointment Date:05/30/2024 03:45:00 PM Scheduled Provider:Kashif Barnett MD [facility] Type:Cardiology Follow Up (FT) Appointment Date:11/01/2024 09:15:00 AM Scheduled Provider:Edwin Garcia MD Location:[facility] Appointment Type: Open Appointment Date:05/02/2025 08:00:00 AM Scheduled Provider: Location:[facility] Appointment Type: Medicare Wellness Subsequent [facility] + Plan note Future Appointments Appointment Date:08/31/2024 01:00:00 PM Scheduled Provider:Kashif Barnett MD [facility] [place] Appoint[facility] Type:Cardiology Follow Up (FT) Appointment Date:11/01/2024 09:15:00 AM Scheduled Provider:Edwin Garcia MD Location:[facility] Appointment Type: Open Appointment Date:05/02/2025 08:00:00 AM Scheduled Provider: Location:[facility] Appointment Type: Medicare Wellness Subsequent [facility] Future Appointments Appointment Date:11/01/2024 09:15:00 AM Scheduled Provider:Edwin Garcia MD Location:[facility] Appointment Type:FM Open Appointment Date:12/11/2024 01:00:00 PM Scheduled Provider:Dixon Dubose PA-C [facility] Type:Cardiology Follow Up (FT) Appointment Date:05/02/2025 08:00:00 AM Scheduled Provider: Location:[facility] Appointment Type:FM Medicare Wellness Subsequent [facility] + Plan note Future Appointments Appointment Date:11/01/2024 09:15:00 AM Scheduled Provider:Edwin Garcia MD Location:[facility] Appointment Type:FM Open Appointment Date:11/19/2024 02:15:00 PM Scheduled Provider: Location:[facility] Appointment Type:Surgery FT Appointment Date:12/12/2024 10:15:00 AM Scheduled Provider:Dixon Dubose PA-C [facility] Type:Cardiology Follow Up (FT) Appointment Date:05/02/2025 08:00:00 AM Scheduled Provider: Location:[facility] Appointment Type: Medicare Wellness Subsequent [facility] + Plan note Future Appointments Appointment Date:11/19/2024 02:15:00 PM Scheduled Provider: Location:[facility] Appointment Type:Surgery FT Appointment Date:12/12/2024 10:15:00 AM Scheduled Provider:Dixon Dubose PA-C [facility] Type:Cardiology Follow Up (FT) Appointment Date:05/02/2025 08:00:00 AM Scheduled Provider: Location:[facility] Appointment Type: Medicare Wellness Subsequent [facility] + Plan note Future Appointments Appointment Date:12/24/2024 01:15:00 PM Scheduled Provider:Edwin Garcia MD [facility] Type:FM Open Appointment Date:05/02/2025 08:00:00 AM Scheduled Provider: Location:[facility] Appointment Type: Medicare Wellness Subsequent Diagnostic Tests Pending * Basic Metabolic Panel 12/17/24 Future Scheduled Tests Laboratory* Basic Metabolic Panel 11/13/24 [facility] + Plan note Future Appointments Appointment Date:01/22/2025 10:15:00 AM Scheduled Provider:Edwin Garcia MD Location:[facility] Appointment Type: Open Appointment Date:05/02/2025 08:00:00 AM Scheduled Provider: Location:[facility] Appointment Type: Medicare Wellness Subsequent Future Scheduled Tests Laboratory* Basic Metabolic Panel 11/13/24 [facility] + Plan note Future Appointments Appointment Date:02/05/2025 01:30:00 PM Scheduled Provider:Edwin Garcia MD Location:[facility] Appointment Type: Open Appointment Date:05/02/2025 08:00:00 AM Scheduled Provider: Location:[facility] Appointment Type: Medicare Wellness Subsequent Future Scheduled Tests Laboratory* Basic Metabolic Panel 01/10/25 * Basic Metabolic Panel 11/13/24 [facility] + Plan note Future Appointments Appointment Date:05/02/2025 08:00:00 AM Scheduled Provider: Location:[facility] Appointment Type: Medicare Wellness Subsequent Future Scheduled Tests Laboratory* Basic Metabolic Panel 11/13/24 [facility] evaluation + Plan note Future Appointments Appointment Date:08/09/2025 10:40:00 AM Scheduled Provider:YANIQUE MCNEILL CNP Location:[facility] Appointment Type: Open Appointment Date:05/13/2026 08:00:00 AM Scheduled Provider: Location:[facility] Appointment Type: Medicare Wellness Subsequent Future Scheduled Tests Laboratory* Basic Metabolic Panel 11/13/24 [facility] evaluation noteNo [facility] [employer] Other evaluation note* Diagnosis Pain in both upper extremities- Primary Carpal tunnel syndrome, bilateral Carpal tunnel syndrome documented in this encounter [facility]* Diagnosis Pre-op testing- Primary Unspecified pre-operative examination Right hand pain Pain in soft tissues of limb Arm weakness Other musculoskeletal symptoms referable to limbs documented in this encounter [facility] HealthcareEvaluation note* Diagnosis Foreign body of right ear, initial encounter- Primary documented in this encounter [facility] HealthcareEvaluation note* Diagnosis Status post carpal tunnel release- Primary Other postprocedural status documented in this encounter [facility] HealthcareEvaluation note* Diagnosis Fracture of nasal [...] and immunity disorders [facility] (cerebral vascular accident) ([facility])- Primary Unspecified cerebral artery occlusion with cerebral infarction 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 ([facility]) documented in this encounter [facility] SystemHistory general Narrative - Reported* Type Description Date Medical History type 2 diabetes Medical History hypothyroid Medical History Afib Surgical History multiple neck sx Surgical History tonsillectomy Surgical History adenoidectomy Surgical History MAU cataract Hospitalization History see above [employer] Other History general Narrative - Reported* Type Description Date Medical History type 2 diabetes Medical History hypothyroid Medical History Afib Surgical History multiple neck sx Surgical History tonsillectomy Surgical History adenoidectomy Surgical History MAU cataract Hospitalization History see above Hospitalization History low sodium- [facility] 10/2023 [employer] Other History general Narrative - Reported* Type Description Date Medical History type 2 diabetes Medical History hypothyroid Medical History Afib Surgical History multiple neck sx Surgical History tonsillectomy Surgical History adenoidectomy Surgical History MAU cataract Hospitalization History see above Hospitalization History low sodium- [facility] 10/2023 Hospitalization History [place]--Influe nza A, hyponatremia, paroxysmal afib, altered mental status, type 2 DM, generalized weakness hypomagnesiema, RADHA 11/13/23-11/15/23 [employer] Other Hospital Discharge instructions No data available for this section [facility] Dis[facility] instructionsNot on file [facility] Discharge instructionsAmbulatory Orders* Initiate Home Health Time [...] [facility] the [facility] Phone: Progress note No data available for this section [facility] for visit Narrative* Auth/Cert (Routine) Specialty Diagnoses / Procedures Referred By Contac t Referred To Contact Diagnoses Epistaxis Nasal fracture Fracture of nasal bones, initial encounter for closed fracture Bteo Hedrick DO [address] [place] [address] Phone: tel: fax: [facility] [address] [place] [address] Referral ID Status Reason Start Date Expiration Date Visits Re quested Visits Authorized [id number] 1 1 [facility] for visit Narrative* Auth/Cert Specialty Diagnoses / Procedures Referred By Contac t Referred To Contact Diagnoses CVA [facility] [address] [place] [phone] Referral ID Status Reason Start Date Expiration Date Visits Re quested Visits Authorized [id number] 1 1 [facility] Summary Purpose Family History No Family History Records Found Relationship Condition Age at Onset Recorded Date/T siri father Unknown family member Unknown mother Unknown Advance Directives No Advanced Directives Records Found Date Activated Date Inactivated Comments 06/02/2025 12:05 PM Date Activated Date Inactivated Comments 06/23/2025 10:31 AM Advance Directive Response Recorded Date/ Time Advance Directives No June 16, 2 023 2:41pm Reason for Referral Reason * FU 09/28 follow up hospitalization for symptomatic hyponatremia, [facility] [place] [facility] ph [phone], fax [phone] Diagnosis 1 Hyponatremia (E87.1) Referral Organization [facility] [employer] Referring Provider First Name Jada Referring Provider Last Name [facility] Referring Provider Specialty Family [employer] Referred Organization [facility] Referred Provider Romeo Lara Referred Address [address] [place], [place],[address] Referred Provider Specialty Internal Med icine Referral Priority Routine General Notes Gabrielle Reid 06/2023 01:35:25 PM > referral received and faxed Clinical Notes [facility] [place] [address] [facility] ph [phone], fax [phone] Reason hyponatremia, recent hospitalization [facility] for hyponatremia Diagnosis 1 Hyponatremia (E87.1) Referral Organization [facility] [employer] [place] Referring Provider First Name Jada Referring Provider Last Name [facility] Referring Provider Specialty [facility] [employer] Referred Organization [facility] Referred Address [address] [place] [place], [place],[address] Referred Provider Specialty Nephrology Referral Priority Routine [...] CREATED AUTHOR AUTHOR'S ORGANIZ ATION 05/03/2024 [facility] DATE CREATED AUTHOR AUTHOR'S ORGANIZ ATION 08/17/2024 [facility] DATE CREATED AUTHOR AUTHOR'S ORGANIZ ATION 11/02/2024 [facility] DATE CREATED AUTHOR AUTHOR'S ORGANIZ ATION 11/14/2024 [facility] DATE CREATED AUTHOR AUTHOR'S ORGANIZ ATION 11/24/2024 [facility] DATE CREATED AUTHOR AUTHOR'S ORGANIZ ATION 11/25/2024 [facility] DATE CREATED AUTHOR AUTHOR'S ORGANIZ ATION 11/29/2024 [facility] DATE CREATED AUTHOR AUTHOR'S ORGANIZ ATION 12/21/2024 [facility] DATE CREATED AUTHOR AUTHOR'S ORGANIZ ATION 01/02/2025 [facility] DATE CREATED AUTHOR AUTHOR'S ORGANIZ ATION 01/11/2025 [facility] DATE CREATED AUTHOR AUTHOR'S ORGANIZ ATION 01/27/2025 [facility] DATE CREATED AUTHOR AUTHOR'S ORGANIZ ATION 02/06/2025 [facility] DATE CREATED AUTHOR AUTHOR'S ORGANIZ ATION 02/07/2025 [facility] DATE CREATED AUTHOR AUTHOR'S ORGANIZ ATION 02/22/2025 [facility] DATE CREATED AUTHOR AUTHOR'S ORGANIZ ATION 05/24/2025 [facility] DATE CREATED AUTHOR AUTHOR'S ORGANIZ ATION 06/03/2025 [facility] DATE CREATED AUTHOR AUTHOR'S ORGANIZ ATION 06/08/2025 [facility] DATE CREATED AUTHOR AUTHOR'S ORGANIZ ATION 06/09/2025 [facility] DATE CREATED AUTHOR AUTHOR'S ORGANIZ ATION 06/09/2025 [facility] DATE CREATED AUTHOR AUTHOR'S ORGANIZ ATION 06/14/2025 [facility] DATE CREATED AUTHOR AUTHOR'S ORGANIZ ATION 06/15/2025 [facility] DATE CREATED AUTHOR AUTHOR'S ORGANIZ ATION 07/23/2025 [facility] DATE CREATED AUTHOR AUTHOR'S ORGANIZ ATION 07/27/2025 [facility] DATE CREATED AUTHOR AUTHOR'S ORGANIZ ATION 08/02/2025 [facility] DATE CREATED AUTHOR AUTHOR'S ORGANIZ ATION 08/05/2025 [facility] REASON FOR [...] or prosecute any alcohol or drug abuse patient.[facility] Patient Care team informatio n (unrecognized section and content) Financial Administrative Assistant Relationship Specialty Start Date End Date Edwin Garcia MD PCP - General Family Medicine 02/03/24 Financial Administrative Assistant Relationship Specialty Start Date End Date Edwin Garcia MD PCP - General Family Medicine 02/03/24 Financial Administrative Assistant Relationship Specialty Start Date End Date Edwin Garcia MD PCP - General Family Medicine 02/03/24 Financial Administrative Assistant Relationship Specialty Start Date End Date Edwin Garcia MD PCP - General Family Medicine 02/03/24 Financial Administrative Assistant Relationship Specialty Start Date End Date Edwin Garcia MD PCP - General Family Medicine 02/03/24 Financial Administrative Assistant Relationship Specialty Start Date End Date Edwin Garcia MD [address] [place] [address] PCP - General Family Medicine 11/26/24 Financial Administrative Assistant Relationship Specialty Start Date End Date Edwin Garcia MD [address] [place] [id number] PCP - General Family Medicine 11/26/24 Financial Administrative Assistant Relationship Specialty Start Date End Date Edwin Garcia MD [address] [place] [address] PCP - General Family Medicine 11/26/24 Financial Administrative Assistant Relationship Specialty Start Date End Date Edwin Garcia MD [address] [place] [address] PCP - General Family Medicine 11/26/24 Financial Administrative Assistant Relationship Specialty Start Date End Date Jaden Maravilla APRN - [employer] [address] [place] [address] PCP - General 06/05/25 Financial Administrative Assistant Relationship Specialty Start Date End Date Yanique cMneill APRN-AVELINA [address] [place] [address] PCP - General Family Medicine 06/13/25 Financial Administrative Assistant Relationship Specialty Start Date End Date Edwin Garcia MD [address] [place] [address] PCP - General Family Medicine 11/26/24 Team Status: Active Member Role Status Dates Yanique Mcneill , [facility] Primary Care Provider Active Team Status: Active Member Role Status Dates Yanique Mcneill [facility] Primary Care Provider Active Start: July 19, 2025 Thalia Cervantes MD Admit Provider Active Start: S devantehumphrey 2024 Thalia Cervantes MD Other Provider Active Start: S eptehumphrey 2024 Dev Archuleta , Other Provider Active Sta rt: July 19, [...] <110mmHg 0930 (Given - Provider: Pat Nieves RN)2108 (Not Given - Provider: Adia Blandon RN [...] Monico Kaiser RN)1432 (Given - Provider: Flip Dubose, RN)2153 (Given - Provider: Nancy Fox RN) [...] Dubose RN)1432 (Given - Provider: Flip Dubose, ERIN)1753 (Given - Provider: Flip Dubose, ERIN)2026 (Given - Provider: Nancy Fox, ERIN) 0206 (Given - Provider: Nancy Fox, RN)0542 (Given - Provider: Nancy Fox, RN)1036 (Given - Provider: Flip Dubose RN)1528 (Not Given - Provider: Flip A Dubose, RN - Reason: Patient/family refused)1814 (Due)2214 (Due) sodium chloride flush 0.9 % injection [...] (Due) 0852 (Given - Provider: Flip Dubose RN)143 (Given - Provider: Flip Dubose RN)2020 (Given [...] Hazardous med- See facility policy for handling/disposal 175 (Given - Provider: Flip Dubose RN) warfarin [...] () 40 mL/hr, IntraVENous, CONTINUOUS, Starting on 06/03/25 at 2100, Until Tue06/03/25 at 2259, For rates greater than 100 mL/hr, CENTRAL LINE/PICC LINE administration required. Goal serum Na+ = 120 to 124 Notify physician and HOLD infusion if sodium increases more than 4 mEq/L (4 mmol/L) over 2 hours OR 8-10 mEq/L (8-10 mmol/L) over 24 hours OR if serum Na+ goal is exceeded. 2140 (New Bag - Provider: Adia Blandon, RN) 0244 (Stopped - Provider: Monico Kaiser RN) PRN [...] for injection by adding 1 mL of jet blade polisher-supplied sterile diluent or sterile water for injection [...] Administer if oral route cannot be used. 214 (Given - Provider: Adia Blandon RN) 0750 (Given - Provider: Flip Dubose RN) ondansetron (ZOFRAN-ODT) disintegrating tablet 4 mg(Linked Group 3) 4 mg, Oral, EVERY 8 HOURS PRN, Starting on Tue06/02/25 at 1205, Until Discontinued, Nausea, Vomiting 2140 [...] Starting on Tue06/02/25 at 1205, Until Discontinued, Line Care, After [...] at 2100, Indication: Nonvalvular Atrial Fibrillation (NVAF) 2113 (Given - Provider: Yonathan Joy RN) 0856 [...] 2112 (Given - Provider: Yonathan Joy RN) 2200 (Due) sodium chloride tablet 1,000 mg 1,000 mg, oral, 3 times daily around food, First dose (after last modification) on Tue06/20/25 at 1700 0903 (Given - Provider: Lauren Gaona RN)1320 (Given - Provider: Lauren Gaona RN)1927 (Given - Provider: Lauren Gaona RN) 0830 (Given - Provider: Debra Huggins [...] Debra Huggins RN)2113 (Given - Provider: Yonathan Joy RN) 0857 (Given - Provider: Debra Huggins RN)2100 [...] than: 3.5 1625 (Given - Provider: Debra Huggins RN) warfarin (COUMADIN) tablet 5 mg (CANCELED) 5 [...] Medication Order 06/21/2025 06/22/2025 06/23/2025 heparin infusion 64871 units/500 mL in 0.45% NaCl (50 units/mL [...] Huggins RN)1328 (Stop Bag - Provider: Debra Huggins RN) [...] BE BASED ON THE PRIMARY CLINICAL RECORDS. [employer] provides no warranty or guarantee of the accuracy or completeness of information in this document.
--- NOTE | 2025-08-05 14:41 | ED.GENADUL1 ---
HPI HPI - General Adult General Chief complaint: Altered Mental Status Stated complaint: ALTERED MENTAL STATUS Time Seen by Provider: 08/05/25 13:56 Mode of arrival: ambulance Limitations: altered mental status History of Present Illness HPI narrative: The patient is a 84 years old male with history of A-fib , diabetes type 2 in addition to a history of stroke and history of hyponatremia with multiple presentation due to altered mental status due to hyponatremia, the patient was just discharged from the hospital, patient brought to us by the EMS after the noticed that he has been slow since last night he also was noted by the home health care nurse that came to draw his blood for weekly check of his sodium The patient himself denies any complaint he is awake and showing no distress but looks weak and slow to react Related Data Home Medications ?Medication ?Instructions ?Recorded ?Confirmed levothyroxine 25 mcg tablet 25 mcg PO QAM 08/21/23 08/05/25 pravastatin 40 mg tablet 40 mg PO DAILY 08/21/23 08/05/25 tamsulosin 0.4 mg capsule 0.4 mg PO DAILY 08/21/23 08/05/25 finasteride 5 mg tablet 5 mg PO DAILY 11/13/23 08/05/25 gabapentin 300 mg capsule 300 mg PO DAILY 08/13/24 08/05/25 atenolol 25 mg tablet 12.5 mg PO DAILY 06/13/25 08/05/25 apixaban 5 mg tablet (Eliquis) 5 mg PO Q12H 07/19/25 08/05/25 omeprazole 40 mg capsule,delayed 40 mg PO DAILY 07/30/25 08/05/25 release Previous Rx's ?Medication ?Instructions ?Recorded aspirin 81 mg tablet,delayed 81 mg PO QD 5 days #5 tabs 06/13/25 release meloxicam 7.5 mg tablet 7.5 mg PO DAILY PRN Pain #0 tabs 08/02/25 sitagliptin phosphate 100 mg 100 mg PO DAILY #30 tabs 08/02/25 tablet (Januvia) sodium chloride 1,000 mg soluble 1,000 mg PO TID #0 tabs 08/02/25 tablet Allergies Allergy/AdvReac Type Severity Reaction Status Date / Time No Known Drug Allergies Allergy Verified 07/30/25 07:12 Opioid HPI Opioid Management Most Recent Opioid Data: Last Pain Scale 0 08/02/25, 10:42 Last Pain Intensity 0 08/02/25, 10:42 Last Pain Assessment 07/30/25, 11:00 Last MAR Pain Assessment 08/01/25, 21:40 Last ORT Total Score 0 07/30/25, 10:03 Last ORT Risk Category Low Risk 07/30/25, 10:03 Ur Phencyclidine Scrn, (NEGATIVE) Negative 08/21/23, 03:22 Review of Systems ROS Status of ROS 10 or more systems reviewed and unremarkable except as noted in history and below [facility] Medical History (Updated 08/05/25 @ 16:55 by Reina Funk MD) Diverticulitis ?K57.92 - Diverticulitis of intestine, part unspecified, without perforation or abscess without bleeding (ICD-10) Hyponatremia ?E87.1 - Hypo-osmolality and hyponatremia (ICD-10) Paroxysmal atrial fibrillation ?I48.0 - Paroxysmal atrial fibrillation (ICD-10) Syncope ?R55 - Syncope and collapse (ICD-10) Abrasion of scalp ?S00.01XA - Abrasion of scalp, initial encounter (ICD-10) Closed head injury ?S09.90XA - Unspecified injury of head, initial encounter (ICD-10) Laceration of scalp ?S01.01XA - Laceration without foreign body of scalp, initial encounter (ICD-10) Low back pain ?M54.50 - Low back pain, unspecified (ICD-10) Lumbar spondylosis ?M47.816 - Spondylosis without myelopathy or radiculopathy, lumbar region (ICD-10) Thoracic back pain ?M54.6 - Pain in thoracic spine (ICD-10) 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 - Other specified mononeuropathies (ICD-10) Paresthesias in right hand ?R20.2 - Paresthesia of skin (ICD-10) Foreign body in right ear ?T16.1XXA - Foreign body in right ear, initial encounter (ICD-10) Hyponatremia ?E87.1 - Hypo-osmolality and hyponatremia (ICD-10) Hypomagnesemia ?E83.42 - Hypomagnesemia (ICD-10) RADHA (acute kidney injury) ?N17.9 - Acute kidney failure, unspecified (ICD-10) Influenza ?J11.1 - Influenza due to unidentified influenza virus with other respiratory manifestations (ICD-10) Hypomagnesemia ?E83.42 - Hypomagnesemia (ICD-10) Acute hyponatremia ?E87.1 - Hypo-osmolality and hyponatremia (ICD-10) Acute confusion ?R41.0 - Disorientation, unspecified (ICD-10) Diabetes ?E11.9 - Type 2 diabetes mellitus without complications (ICD-10) High cholesterol ?E78.00 - Pure hypercholesterolemia, unspecified (ICD-10) Surgical History Hx of carpal tunnel repair ?Z98.890 - Other specified postprocedural states (ICD-10) Family History Father Family history of myocardial infarction Family history of hypertension Mother Family history of cancer Family history of diabetes mellitus Social History (Updated 06/12/25 @ 22:04 by Edda Yap RN) Within the past year, how often did you have a drink containing alcohol: 2-4 times a month Smoking status: Never smoker Second hand tobacco smoke exposure: No Non-prescribed substance use: denies use Known occupational exposures/hazards: No Highest level of school completed/degree received: high school graduate Are you now , , , , never or living with a partner: Little interest or pleasure in doing things: not at all Feeling down, depressed, or hopeless: not at all Feel stressed/tense/nervous/anxious/difficulty sleeping: not at all Gender Identity: male Gender Identity Comment: Unable to assess due to AMS, Expressive aphasia. Exam Narrative Exam Narrative: Nurses notes and vital signs reviewed and patient is not hypoxic. General: Well-appearing and in no apparent distress. Skin: Warm, dry, no pallor noted. No rash. Head: Normocephalic, atraumatic. Neck: Supple, non-tender. Cardiovascular: irregular Rate and Rhythm without murmur, gallop or rub. Respiratory: No accessory muscle use or respiratory distress. Lungs are clear to auscultation, no wheezing, rales or rhonchi Chest Wall: no tenderness Back: No midline thoracic or lumbar vertebral tenderness. No CVA tenderness Musculoskeletal: normal ROM, no calf or popliteal tenderness, no lower extremity edema/swelling GI: Abdomen is soft, non-distended. Normal bowel sounds. No masses appreciated. No tenderness to palpation. No rebound, guarding, or rigidity noted. Neurological: Alert answering with yes and no . No cranial nerve dysfunction observed. No truncal ataxia. Constitutional Vital Signs, click to edit/add: Last Vital Signs Temp 98.6 F 08/05/25 13:55 Pulse 106 H 08/05/25 17:00 Resp 22 H 08/05/25 17:00 BP 149/60 H 08/05/25 17:00 Pulse Ox 96 08/05/25 17:00 O2 Del Method Room Air 08/05/25 14:06 Course Vital Signs Vital signs: Vital Signs Temperature 98.6 F 08/05/25 13:55 Pulse Rate 109 H 08/05/25 13:55 Respiratory Rate 20 08/05/25 13:55 Blood Pressure 166/82 H 08/05/25 13:55 Pulse Oximetry 96 08/05/25 13:55 Oxygen Delivery Method Room Air 08/05/25 13:55 Temperature 98.6 F 08/05/25 13:55 Pulse Rate 106 H 08/05/25 17:00 Respiratory Rate 22 H 08/05/25 17:00 Blood Pressure 149/60 H 08/05/25 17:00 Pulse Oximetry 96 08/05/25 17:00 Oxygen Delivery Method Room Air 08/05/25 14:06 Medical Decision Making [facility] Narrative Medical decision making narrative: The patient presentation could be secondary to hyponatremia CT of the head showed no acute pathology The patient EKG was showing A-fib with a heart rate of 99 CBC and chemistry shows a sodium of 119 with a low chloride the patient was started on hydration 250 cc/hr I did speak with the at the bedside and explained to her that 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 and he will likely get worse and the problem will keep happening because the patient is not eating or drinking because of his history and I did explain to her that right now we definitely need to address his CODE STATUS The patient case was accepted by and he agreed with above-mentioned plan The patient at 5:27 PM had an episode of vomiting he was given Zofran for nausea No abdominal pain Lab Data Labs: Lab Results 08/05/25 08/05/25 Range/Units 14:01 14:43 WBC 8.3 (4.0-11.0) 10^3/uL RBC 4.15 L (4.70-6.10) 10^6/uL Hgb 13.2 L (14.0-18.0) g/dL Hct 35.8 L (42.0-54.0) % MCV 86.3 (80.0-94.0) fL MCH 31.8 (25.9-34.0) pg MCHC 36.9 H (29.9-35.2) g/dL RDW 11.9 (11.0-15.0) % Plt Count 226 (150-450) 10^3/uL MPV 10.8 (9.5-13.5) fL Neut % (Auto) 69.6 (43.0-75.0) % Lymph % (Auto) 18.8 L (20.5-60.0) % Ray % (Auto) 6.7 (1.7-12.0) % Eos % (Auto) 3.5 (0.9-7.0) % Baso % (Auto) 1.2 (0.2-2.0) % Neut # (Auto) 5.8 (1.4-6.5) 10^3/uL Lymph # (Auto) 1.6 (1.2-3.8) 10^3/uL Ray # (Auto) 0.6 (0.3-0.8) 10^3/uL Eos # (Auto) 0.3 (0.0-0.7) 10^3/uL Baso # (Auto) 0.1 (0.0-0.1) 10^3/uL Abs Immat Gran (auto) 0.02 (0.00-0.03) 10^3/uL Imm/Tot Granulo (auto) 0.2 (0.0-0.5) % PT 12.3 H (9.0-11.6) sec INR 1.18 Sodium 119 L* (136-145) mmol/L Potassium 4.3 (3.5-5.1) mmol/L Chloride 87 L (98-107) mmol/L Carbon Dioxide 25.3 (21.0-32.0) mmol/L Anion Gap 11.0 BUN 8.0 (7.0-18.0) mg/dL Creatinine 0.73 (0.70-1.30) mg/dL Est GFR ( Amer) >60 (>=60 mL/min/1.73m^2) Est GFR (Non-Af Amer) >60 (>=60 mL/min/1.73m^2) BUN/Creatinine Ratio 11.0 Glucose 100 (74-106) mg/dL Lactate 1.8 (0.4-2.0) mmol/L Calcium 8.6 (8.5-10.1) mg/dL Total Bilirubin 1.7 H (0.2-1.0) mg/dL AST 22 (15-37) U/L ALT 7 L (16-63) U/L Alkaline Phosphatase 97 (46-116) U/L Troponin I High Sens 6.7 (4.0-76.1) pg/mL Total Protein 7.1 (6.4-8.2) g/dL Albumin 3.6 (3.4-5.0) g/dL Globulin 3.5 g/dL Albumin/Globulin Ratio 1.0 TSH 1.849 (0.358-3.740) uIU/mL POC Glucose 102 (74-106) mg/dL Discharge Plan Discharge Chief Complaint: Altered Mental Status Clinical Impression: AMS (altered mental status), Hyponatremia Patient Disposition: Admitted As Inpatient Time of Disposition Decision: 16:54
[2025-08-05 15:03] LABS: INR 1.18; Prothrombin Time 12.3 sec (9.0-11.6)
[2025-08-05 15:06] LABS: Lactate/Lactic Acid 1.8 mmol/L (0.4-2.0)
[2025-08-05 15:08] LABS: Alanine Aminotransferase 7 U/L (16-63); Albumin Globulin Ratio 1.0; Albumin Level 3.6 g/dL (3.4-5.0); Alkaline Phosphatase 97 U/L (46-116); Anion Gap 11.0; Aspartate Amino Transferase 22 U/L (15-37); Blood Urea Nitrogen 8.0 mg/dL (7.0-18.0); Calcium 8.6 mg/dL (8.5-10.1); Carbon Dioxide 25.3 mmol/L (21.0-32.0); Chloride 87 mmol/L (98-107); Estimated GFR (African America >60 (>=60 mL/min/1.73m^2); Estimated GFR (Non-African Ame >60 (>=60 mL/min/1.73m^2); Globulin 3.5 g/dL; Glucose 100 mg/dL (74-106); Potassium 4.3 mmol/L (3.5-5.1); Total Protein 7.1 g/dL (6.4-8.2)
[2025-08-05 15:20] LABS: Sodium 119 mmol/L (136-145)
[2025-08-05 15:28] LABS: Hematocrit 35.8 % (42.0-54.0); Hemoglobin 13.2 g/dL (14.0-18.0); Immature Granulocytes Abs Auto 0.02 10^3/uL (0.00-0.03); Immature Granulocytes Pct Auto 0.2 % (0.0-0.5); Lymphocytes Absolute Auto 1.6 10^3/uL (1.2-3.8); Mean Corpuscular HGB Conc 36.9 g/dL (29.9-35.2); Mean Corpuscular Hemoglobin 31.8 pg (25.9-34.0); Mean Corpuscular Volume 86.3 fL (80.0-94.0); Platelet Count 226 10^3/uL (150-450); Red Blood Count 4.15 10^6/uL (4.70-6.10); White Blood Count 8.3 10^3/uL (4.0-11.0)
[2025-08-05] MEDS: 0.9 % SODIUM CHLORIDE 1,000 ML 250 ML IV (15:30)
[2025-08-05 15:38] LABS: Thyroid Stimulating Hormone 1.849 uIU/mL (0.358-3.740)
--- OUTSIDE RECORDS SUMMARY | 2025-08-05 18:08 | XMS_ITS | CCD ---
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 Machinist Name Role Phone Jada Rene Unavailable Unavailable Primary Care Provider UnavailEdwin Fletcher Primary Care Physician [phone] Irene COHN, Nathaniel Longo Attending Unavailable Edwin Garcia MD Primary Care Provider [phone] Edwin Garcia Attending Unavailable Edwin Garcia Admitting Unavailable Hernández, Axel T Admitting Unavailable Hernández, Axel T Attending Unavailable Hernández, Axel T Referring Unavailable Edwin Garcia Attending Unavailable Edwin Garcia Attending Unavailable Hernández, Axel T Admitting Unavailable Hernández, Axel T Attending Unavailable Hernández, Axel T Referring Unavailable Edwin Garcia Attending Unavailable Edwin Garcia Admitting Unavailable Edwin Garcia MD Primary Care Provider [phone] HERNÁNDEZ, AXEL T Referring Unavailable HERNÁNDEZ, AXEL T Attending Unavailable EDWIN GARCIA Referring Unavailable HERNÁNDEZ, AXEL T Attending Unavailable HERNÁNDEZ, AXEL T Referring Unavailable HERNÁNDEZ, AXEL T Attending Unavailable HERNÁNDEZ, AXEL T Referring Unavailable SHALA FARRELL Attending Unavailable HERNÁNDEZ, AXEL T Attending Unavailable HERNÁNDEZ, AXEL T Referring Unavailable EMIILANO ESCAMILLA Attending Unavailable JOSE L CHOW Attending [...] Unavailable Kirnus, Kashif D Attending Unavailable Jules IRRIGATION INSTALLATION SPECIALIST - PARTS CLERK PLANT MAINTENANCEJaden Primary Care Provider Edwin Garcia Referring Unavailable [...] Unavailable MD Edwin Garcia Attending Unavailable Reyes IRRIGATION INSTALLATION SPECIALIST-Yanique QUAN Primary Care Provider YANIQUE MCNEILL A Attending Unavailable Jules Jaden L Attending Unavailable REYES, YANIQUE A Attending Unavailable REYES, YANIQUE A Attending Unavailable REYES, YANIQUE A Admitting Unavailable REYES, YANIQUE A Attending Unavailable REYES, YANIQUE A Attending Unavailable REYES, YANIQUE A Admitting Unavailable REYES, YANIQUE A Admitting Unavailable REYES, YANIQUE A Admitting Unavailable Reyes TAMPING MACHINE OPERATOR-BC, Yanique A Primary Care Provider [...] Medication Allergies] Propensity to adverse reactions (disorder) [facility] Repository Medications Current Medications Medication [...] every four hours as needed for pain [place] 325 mg-5 mg oral tablet See Instructions, [...] # 90 tab(s), Refills(s) 1, Pharmacy: [facility], 178, cm, 09/10/24 13:01:00 EDT, Height/Length Dosing, 80.1, kg, 09/10/24 13:01:00 EDT, Weight Dosing Start Date: 10/22/24 Status: Ordered Quantity: 90.0 Unit: tab(s) Repeat number: 2 Start: 04-20-2024 atenolol 25 mg Tab See Instructions, take 1/2 tab daily, # 30 tab(s), Refills(s) 5, Pharmacy: [facility]/pharmacy #[id number], 180, cm, 04/20/24 13:27:00 EDT, Height/Length Dosing, [...] Corticosteroid Start: 08-31-20 fluticasone Nasal 0.05 mg/inh [place] See Instructions, 48 mL, Refill(s) 1, USE 1 SPRAY IN EACH NOSTRIL TWICE A DAY, [facility] ST[id number], 178, cm, 08/28/24 14:50:00 EDT, Height/Length Dosing, 82.2, kg, 08/28/24 14:50:00 EDT, Weight Dosing Start Date: 08/31/24 Status: Ordered Start: 07-03-2024 take 1 spray(s) nasa l route twice daily Flonase 0.05 mg/inh [place] 1 spray(s), Nasal, BID, 16 gram, Refill(s) 0, each nostril, [facility]/pharmacy #[id number], 178, cm, 07/03/24 10:05:00 [...] STOMACH, # 90 tab(s), Refills(s) 1, Pharmacy: [facility] STORE [id number], 178.6, cm, 02/05/25 13:36:00 EDT, Height/Length Dosing, 82.2, kg, 02/05/25 13:36:00 EDT, Weight Dosing Start Date: 03/07/25 Status: Ordered Quantity: 90.0 Unit: tab(s) Repeat number: 1 Start: 08-20-2024 Synthroid 25 m cg(0.025 mg) Tab See Instructions, TAKE 1 TABLET DAILY ON AN EMPTY STOMACH, # 3 tab(s), Refills(s) 0, Pharmacy: [facility]/pharmacy #[id number], 178, cm, 08/07/24 10:59:00 EDT, Height/Length Dosing, 78.2, kg, 08/07/24 10:59:00 EDT, Weight Dosing Start Date: 08/20/24 Status: Ordered Quantity: 3.0 Unit: tab(s) Repeat number: 1 Start: 02-13-2024 take 1 tablet by alyssa once daily levothyroxine 25 mcg (0.025 mg) Tab 25 mcg = 1 tab(s), Oral, Daily, on an empty stomach, # 90 tab(s), Refills(s) 1, Pharmacy: [facility], 178.2, cm, 02/02/24 10:29:00 [...] # 30 tab(s), Refills(s) 2, Pharmacy: [facility], 178.6, cm, 02/05/25 13:36:00 EDT, Height/Length Dosing, 82.2, kg, 02/05/25 13:36:00 EDT, Weight Dosing Start Date: 04/25/25 Status: Ordered Quantity: 30.0 Unit: tab(s) Repeat number: 3 Start: 01-07-2025 take 1 tablet by alyssa th once daily meloxicam 7.5 mg Tab 7.5 mg = 1 tab(s), Oral, Daily, TAKE 1 TABLET DAILY, # 30 tab(s), Refills(s) 2, Pharmacy: [facility], 178.6, cm, 12/24/24 13:13:00 EST, Height/Length Dosing, 79, kg, 12/24/24 13:13:00 EST, Weight Dosing Start Date: 01/07/25 Status: Ordered Quantity: 30.0 Unit: tab(s) Repeat number: 3 Start: 12-06-2024 take 1 tablet by alyssa th once daily meloxicam 7.5 mg Tab 7.5 mg = 1 tab(s), Oral, Daily, TAKE 1 TABLET DAILY, # 30 tab(s), Refills(s) 2, Pharmacy: [facility], 178.6, cm, 11/01/24 9:21:00 [...] # 5 tab(s), Refills(s) 0, Pharmacy: [facility], 178, cm, 07/03/24 10:05:00 [...] (2 times per day), First dose on [place] 06/02/25 at 2100, Until Discontinued, For Line [...] HOURS, First dose (after last modification) on [place] 06/02/25 at 1415, Until Discontinued Start: 06-02-2025 IntraVENous, a t 5-250 mL/hr, PRN, if patient receiving piggyback infusions and maintenance fluids are not ordered, Starting on [place] 06/02/25 at 1205, For piggyback infusion, administer [...] needed 10 mL, IntraVENous, PRN, Starting on [place] 06/02/25 at 1205, Until Discontinued, Line Care, After every IV line use Start: 05-14-2025 End: 06-05-2025 take 1000 mg by mouth three times daily 1,000 mg, oral, 3 times daily around food, First dose (after last modification) on [facility] 06/20/25 at 1700 Start: 05-14-2025 Sodium Chlorid e 1 g oral tablet See Instructions, Take 1g BID daily, # 180 tab(s), Refills(s) 0, Pharmacy: [facility]/pharmacy #[id number], 178.6, cm, 05/09/25 8:18:00 EDT, Height/Length Dosing, 80.6, kg, 05/09/25 8:18:00 EDT, Weight Dosing Start Date: 05/14/25 Status: Ordered Quantity: 180.0 Unit: tab(s) Repeat number: 1 Start: 02-06-2025 Sodium Chlorid e 1 g oral tablet See Instructions, Take 1g BID daily, # 60 tab(s), Refills(s) 3, [id number] 178.6, cm, 02/05/25 13:36:00 EDT, Height/Length Dosing, 82.2, kg, 02/05/25 13:36:00 EDT, Weight Dosing Start Date: 02/06/25 Status: Ordered Quantity: 60.0 Unit: tab(s) Repeat number: 4 Start: 01-24-2025 take 1 tablet by alyssa th twice daily Sodium Chloride 1 g oral tablet See Instructions, 1 gram orally BID, # 180 tab(s), Refills(s) 0, Pharmacy: [facility], 178.6, cm, 01/24/25 13:29:00 EDT, Height/Length Dosing, 82.7, kg, 01/24/25 13:29:00 EDT, Weight Dosing Start Date: 01/24/25 Status: Ordered Start: 01-07-2025 take 1 tablet by mouth once da rasta Sodium Chloride 1 g oral tablet See Instructions, 1 gram orally daily, # 90 tab(s), Refills(s) 0, [id number] 178.6, cm, 12/24/24 13:13:00 EST, Height/Length Dosing, 79, kg, 12/24/24 13:13:00 EST, Weight Dosing Start Date: 01/07/25 Status: Ordered Start: 12-26-2024 take 1 tablet by mouth once da rasta Sodium Chloride 1 g oral tablet See Instructions, 1 gram orally daily, # 90 tab(s), Refills(s) 0, Pharmacy: [facility], 178.6, cm, 12/24/24 13:13:00 EST, Height/Length Dosing, 79, kg, 12/24/24 13:13:00 EST, Weight Dosing Start Date: 12/26/24 Status: Ordered Start: 12-17-2024 take 1 tablet by mouth once da rasta Sodium Chloride 1 g oral tablet See Instructions, 1 gram orally daily, # 90 tab(s), Refills(s) 0, Pharmacy: [facility], 178.6, cm, 12/17/24 15:05:00 EST, Height/Length Dosing, 78.5, kg, 12/17/24 15:05:00 EST, Weight Dosing Start Date: 12/17/24 Status: Ordered Start: 06-27-2024 take 1 tablet by mouth once da rasta Sodium Chloride 1 g oral tablet See Instructions, 1 gram orally daily, # 90 tab(s), Refills(s) 0, [id number] 178, cm, 06/11/24 12:53:00 [...] DAY, # 90 tab(s), Refills(s) 2, [id number] 180.5, cm, 03/20/24 15:05:00 [...] # 90 tab(s), Refills(s) 2, Pharmacy: [facility], 178.2, cm, 12/01/23 13:40:00 EST, Height/Length Dosing, 85.5, kg, 12/01/23 13:40:00 EST, Weight Dosing Start Date: 12/23/23 Status: Ordered Sodium Chloride 1000 mg oral tablet, soluble (1 source) Start: 11-13-2024 take 1 tablet by mouth once daily Sodium Chloride 1000 mg oral tablet, soluble See Instructions, 30 tab(s), Refill(s) 0, Take one tablet daily, [facility]/pharmacy #[id number], 178.6, cm, 11/01/24 9:21:00 EST, Height/Length [...] 7 tab(s), Refills(s) 0, Pharmacy: [facility]/pharmacy #[id number], 178.6, cm, 02/05/25 13:36:00 EDT, Height/Length [...] for injection by adding 1 mL of bill adjuster-supplied sterile diluent or sterile water for injection [...] by mouth daily Suspended polyethylene glycol 3350 48767 mg powder for oral solution (1 source) [...] Comment on above: Take 1 capsule by [facility] daily at bedtime. 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 Episodic Other aftercare (1 source) Post-discharge follow-up 12-17-2024 Episodic Other aftercare (2 sources) Anticoagulant effect; Translations: [prison (current) use of anticoagulants] Onset: 5 06-02-2025 [...] vascular disease; Translations: [Atherosclerotic heart disease of [place] coronary artery without angina pectoris] Onset: 5 [...] EDT With: YANIQUE MCNEILL CNP Where: [address] [id number] 8:00 AM EDT With: Where: [facility] [place] [address] [place] [address]- Medications What How Much When Why Instructions [...] disease BMI 23.0-23.9, adult Nonsmoker Natural Lemon [place] flavor Unchanged pravastatin (pravastatin 40 mg Tab) [...] Erectile dysfuncti (more content not included)... Normal [facility] Office/Clini c Noteon 07-25-2025 [...] health services, although they were ordered by [facility] to assist with gastrointestinal and genitourinary [...] 7.5 mg (more content not included)... Normal [facility] Comment on above: Result Comment: Elec tronically Signed By: YANIQUE MCNEILL CNP\.claudio\Date and Time Signed: 07/25/25 11:58 EDT Glucose Poct Glucometerson 0 07-23-2025 Glucose [Mass/Vol] 137 mg/dL Normal [facility] Comment on above: Result Comment: [facility] Glucose Reference Range is dependent on time and content of last meal. Glucose of more than 200 mg/dL in a nonstressed, ambulatory subject supports the diagnosis of Diabetes Mellitus. PERFORMED BY: [address] [place] [address] PATHOLOGIST LACE WEAVER MARIAM WANG M.D. Performed By: #### C DT #### [facility] [address] CBC W Auto Differential pane l (Bld)on 07-22-2025 Basophils (Bld) [#/Vol] 0 10*3/uL 0.0 - 0.2 10*3/uL [facility] Basophils/100 WBC Manual cnt (Syn fld) 0.4 % . [facility] care Eosinophils (Bld) [#/Vol] 0.1 10*3/uL 0.0 - 0.45 10*3/uL [facility] Eosinophils/100 WBC Manual cnt (Syn fld) 2.2 % . [facility] Erythrocyte distribution width (RBC) [Ratio] 13.6 % 12.0 - 14.8 % [facility] Hematocrit (Bld) [Volume fraction] 32.4 % Low 38.8 - 50.0 % [facility] Hemoglobin (Bld) [Mass/Vol] 11.2 g/dL Low 13.0 - 17.0 g/dL [facility] Interpretation and review of laboratory results Abnormal [facility] Lymphocytes (Bld) [#/Vol] 1.2 10*3/uL 1.00 - 4.8 10*3/uL [facility] Lymphocytes/100 WBC Manual cnt (Syn fld) 16.8 % . [facility] MCH (RBC) [Entitic mass] 31.5 pg 27.5 - 35.2 pg [facility] MCHC (RBC) [Mass/Vol] 34.4 g/dL 32.5 - 35.6 g/dL [facility] MCV (RBC) [Entitic vol] 91.5 fL 83.5 - 101 fL [facility] Monocytes (Bld) [#/Vol] 0.6 10*3/uL 0.0 - 0.8 10*3/uL [facility] Monocytes+Macrophages /100 WBC Manual cnt (Syn fld) 8.3 % . [facility] Neutrophils (Bld) [#/Vol] 5 10*3/uL 1.8 - 7.7 10*3/uL [facility] Neutrophils/100 WBC Manual cnt (Syn fld) 72.3 % . [facility] NRBC 0.1 /100{WBC} 0 - 0.5 /100{WBC} [facility] Platelet mean volume (Bld) [Entitic vol] 8.8 fL 6.6 - 10.1 fL [facility] Platelets (Bld) [#/Vol] 157 10*3/uL 150 - 450 10*3/uL [facility] RBC LM.HPF (Urine sed) [#/Area] 3.54 10*6/uL Low 3.90 - 5.60 10*6/uL [facility] WBC (Bld) [#/Vol] 6.9 10*3/uL 4.1 - 10.5 10*3/uL [facility] WBC LM.HPF (Urine sed) [#/Area] 6.9 [CFU]/mL 4.1 - 10.5 [CFU]/mL [facility] Complete Blood Count Auto Di ffon 07-22-2025 Basophils (Bld) [#/Vol] 0.0 10*3/uL Normal 0.0-0.2 [facility] Comment on above: Result Comment: PERF ORMED BY: [place] [address] PATHOLOGIST LACE WEAVER MARIAM WANG M.D. Performed By: #### C DT #### [address] Basophils/100 WBC (Bld) 0.4 % Normal . [facility] Comment on above: Performed By: #### C DT #### [place] [address] [place] Eosinophils (Bld) [#/Vol] 0.1 10*3/uL Normal 0.0-0.45 [facility] Comment on above: Performed By: #### C DT #### [place] [address] [place] Eosinophils/100 WBC (Bld) 2.2 % Normal . [facility] Comment on above: Performed By: #### C DT #### [address] Erythrocyte distribution width (RBC) [Ratio] 13.6 % Normal 12.0-14.8 [facility] Comment on above: Performed By: #### C DT #### [address] Hematocrit (Bld) [Volume fraction] 32.4 % Low 38.8-50.0 [facility] Comment on above: Performed By: #### C DT #### [address] Hemoglobin (Bld) [Mass/Vol] 11.2 g/dL Low 13.0-17.0 [facility] Comment on above: Performed By: #### C DT #### [address] Lymphocytes (Bld) [#/Vol] 1.2 10*3/uL Normal 1.00-4.8 [facility] Comment on above: Performed By: #### C DT #### [address] Lymphocytes/100 WBC (Bld) 16.8 % Normal . [facility] Comment on above: Performed By: #### C DT #### [address] MCH (RBC) [Entitic mass] 31.5 pg Normal 27.5-35.2 [facility] Comment on above: Performed By: #### C DT #### [address] MCV (RBC) [Entitic vol] 91.5 fL Normal 83.5-101 [facility] Comment on above: Performed By: #### C DT #### [address] Mean Corpuscular HGB Conc 34.4 g/dL Normal 32.5-35.6 [facility] Comment on above: Performed By: #### C DT #### [address] Monocytes (Bld) [#/Vol] 0.6 10*3/uL Normal 0.0-0.8 [facility] Comment on above: Performed By: #### C DT #### [place] [address] Monocytes/100 WBC (Bld) 8.3 % Normal . [facility] Comment on above: Performed By: #### C DT #### [address] Neutrophils (Bld) [#/Vol] 5.0 10*3/uL Normal 1.8-7.7 [facility] Comment on above: Performed By: #### C DT #### [address] Neutrophils/100 WBC (Bld) 72.3 % Normal . [facility] Comment on above: Performed By: #### C DT #### [address] NRBC% 0.1 /100{WBC} Normal 0-0.5 [facility] Comment on above: Performed By: #### C DT #### [address] Platelet mean volume (Bld) [Entitic vol] 8.8 fL Normal 6.6-10.1 [facility] Comment on above: Performed By: #### C DT #### [place] [address] [place] Platelets (Bld) [#/Vol] 157 10*3/uL Normal 150-450 [facility] Comment on above: Performed By: #### C DT #### [place] [address] [place] RBC (Bld) [#/Vol] 3.54 10*6/uL Low 3.90-5.60 [facility] Comment on above: Performed By: #### C DT #### [place] [address] [place] WBC (Bld) [#/Vol] 6.9 10*3/uL Normal 4.1-10.5 [facility] Comment on above: Performed By: #### C DT #### [address] White Blood Count 6.9 [CFU]/mL Normal 4.1-10.5 [facility] Comment on above: Performed By: #### C DT #### [facility] [address] [place] [id number] [facility] Comprehensive [facility] 07-22-2025 Albumin [Mass/Vol] 3.4 g/dL Low 3.5-5.7 [facility] Comment on above: Order Comment: per r n isaias. arr 0851. Performed By: #### G LULS #### Point of Care testing , Albumin/Globulin [Mass ratio] 1.5 {ratio} Normal [facility] Comment on above: Order Comment: per r n isaias. arr 0851. Performed By: #### G LULS #### Point of Care testing , ALP [Catalytic activity/Vol] 73 U/L Normal 34-104 [facility] Comment on above: Order Comment: per r n isaias. arr 0851. Performed By: #### G LULS #### Point of Care testing , ALT [Catalytic activity/Vol] 15 U/L Normal 7-52 [facility] Comment on above: Order Comment: per r n isaias. arr 0851. Performed By: #### G LULS #### Point of Care testing , Anion gap [Moles/Vol] 6.6 mmol/L Normal 6.0-15.0 [facility] Comment on above: Order Comment: per r n isaias. arr 0851. Performed By: #### G LULS #### Point of Care testing , AST [Catalytic activity/Vol] 22 U/L Normal 13-39 [facility] Comment on above: Order Comment: per r n isaias. arr 0851. Performed By: #### G LULS #### Point of Care testing , Bilirubin [Mass/Vol] 0.6 mg/dL Normal 0.3-1.0 [facility] Comment on above: Order Comment: per r n isaias. arr 0851. Performed By: #### G LULS #### Point of Care testing , Calcium [Mass/Vol] 8.5 mg/dL Low 8.6-10.3 [facility] Comment on above: Order Comment: per r romina esparza. arr 0851. Performed By: #### G LULS #### Point of Care testing , Chloride [Moles/Vol] 101 mmol/L Normal 98-107 [facility] Comment on above: Order Comment: per r romina thomasel. arr 0851. Performed By: #### G LULS #### Point of Care testing , CO2 [Moles/Vol] 27.1 mmol/L Normal 21.0-31.0 [facility] Comment on above: Order Comment: per r romina esparza. arr 0851. Performed By: #### G LULS #### Point of Care testing , Creatinine [Mass/Vol] 0.83 mg/dL Normal 0.70-1.30 [facility] Comment on above: Order Comment: per r romina esparza. arr 0851. Performed By: #### G LULS #### Point of Care testing , Creatinine Clr Calc Pharmacy 71.82 Normal [facility] Comment on above: Order Comment: per r romina esparza. arr 0851. Result Comment: PERF ORMED BY: [facility] [address] [place] [address] PATHOLOGIST LACE WEAVER MARIAM WANG M.D. Performed By: #### G LULS #### Point of Care testing , GFR/1.73 sq M.predicted MDRD (S/P/Bld) [Vol rate/Area] mL/min/{1.73_m2} Normal [facility] Comment on above: Order Comment: per r romina esparza. arr 0851. Performed By: #### G LULS #### Point of Care testing , Globulin (S) [Mass/Vol] 2.3 g/dL Normal [facility] Comment on above: Order Comment: per r romina esparza. arr 0851. Performed By: #### G LULS #### Point of Care testing , Glucose [Mass/Vol] 116 mg/dL High 70-100 [facility] Comment on above: Order Comment: per r romina esparza. arr 0851. Result Comment: [facility] Glucose Reference Range is dependent on time and content of last meal. Glucose of more than 200 mg/dL in a nonstressed, ambulatory subject supports the diagnosis of Diabetes Mellitus. ADA recommended reference range Performed By: #### G LULS #### Point of Care testing , Potassium [Moles/Vol] 3.7 mmol/L Normal 3.5-5.1 [facility] Comment on above: Order Comment: per joyce esparza. arr 0851. Performed By: #### G LULS #### Point of Care testing , Protein [Mass/Vol] 5.7 g/dL Low 6.4-8.9 [facility] Comment on above: Order Comment: per joyce esparza. arr 0851. Performed By: #### G LULS #### Point of Care testing , Sodium [Moles/Vol] 131 mmol/L Low 136-145 [facility] Comment on above: Order Comment: per joyce esparza. arr 0851. Performed By: #### G LULS #### Point of Care testing , Urea nitrogen [Mass/Vol] 12 mg/dL Normal 7-25 [facility] Comment on above: Order Comment: per joyce esparza. arr 0851. Performed By: #### G LULS #### Point of Care testing , Glucose Poct Glucometerson 0 07-22-2025 Glucose [Mass/Vol] 168 mg/dL Normal [facility] Comment on above: Result Comment: [facility] Glucose Reference Range is dependent on time and content of last meal. Glucose of more than 200 mg/dL in a nonstressed, ambulatory subject supports the diagnosis of Diabetes Mellitus. PERFORMED BY: [facility] [address] [facility] [place] [address] PATHOLOGIST LACE WEAVER MARIAM WANG M.D. Performed By: #### G LULS #### Point of Care testing , Glucose [Mass/Vol] 70 mg/dL Normal [facility] Comment on above: Result Comment: [facility] Glucose Reference Range is dependent on time and content of last meal. Glucose of more than 200 mg/dL in a nonstressed, ambulatory subject supports the diagnosis of Diabetes Mellitus. PERFORMED BY: [facility] [address] [place] [id number] PATHOLOGIST LACE WEAVER MARIAM WANG M.D. Performed By: #### G LULS #### Point of Care testing , Glucose [Mass/Vol] 94 mg/dL Normal [facility] Comment on above: Result Comment: [place] [facility] Glucose Reference Range is dependent on time and content of last meal. Glucose of more than 200 mg/dL in a nonstressed, ambulatory subject supports the diagnosis of Diabetes Mellitus. PERFORMED BY: [place] [id number] PATHOLOGIST LACE WEAVER MARIAM WANG M.D. Performed By: #### C DT #### [address] Glucose [Mass/Vol] 86 mg/dL Normal [facility] Comment on above: Result Comment: [place] [facility] Glucose Reference Range is dependent on time and content of last meal. Glucose of more than 200 mg/dL in a nonstressed, ambulatory subject supports the diagnosis of Diabetes Mellitus. PERFORMED BY: [place] [address] PATHOLOGIST LACE WEAVER MARIAM WANG M.D. Performed By: #### C DT #### [address] Glucose [Mass/Vol] 63 mg/dL Normal [facility] Comment on above: Result Comment: [place] [facility] Glucose Reference Range is dependent on time and content of last meal. Glucose of more than 200 mg/dL in a nonstressed, ambulatory subject supports the diagnosis of Diabetes Mellitus. PERFORMED BY: [place] [address] PATHOLOGIST LACE WEAVER MARIAM WANG M.D. Performed By: #### G LULS #### Point of Care testing , Vancomycin,Troughon -08-20 25 Vancomycin,Trough 12.0 Normal 10.0-20.0 [facility] Comment on above: Order Comment: > or = to 3 loose/watery stools in the last 24 HRS? Y Is patient on promotility agents or tube feeding? N Result Comment: Last dose: - PERFORMED BY: [place] [address] PATHOLOGIST LACE WEAVER MARIAM WANG M.D. Performed By: #### C DT #### [place] [id number] [facility] C-Reactive Proteinon 025 C-Reactive Protein 12.1 mg/dL High 0.0-0.5 [facility] Comment on above: Result Comment: PERF ORMED BY: [place] [address] PATHOLOGIST LACE WEAVER MARIAM WANG M.D. Performed By: #### C DT #### [address] CRP [Mass/Vol]on 07-21-2025 C-REACTIVE PROTEIN 12.1 mg/dL High 0.0 - 0.5 mg/dL [facility] Interpretation and review of laboratory results [facility] abdomen [facility] CT angio abdomen pelvis [facility] Main [place] [address] [place] [address] CT Scan Report Signed Patient: Dariel Zabala MR#: [id number] 9 : 1940 Acct:[id number] Age/Sex: 85 / M ADM Date: 07/19/25 Loc: Room: [address] [place] [address] Type: ADM IN Attending Dr: Thalia Cervantes [...] Jr., D.O. 07/21/2025 1:05 PM Dictation Location: [facility]18 Transcribed By: [facility] 07/21/25 1305 Dictated By: Dariel Gooden Jr, DO 07/21/25 1258 Signed By: 07/21/25 1305 Normal [facility] Complete Blood Count Auto Di ffon 07-21-2025 Basophils (Bld) [#/Vol] 0.0 10*3/uL Normal 0.0-0.2 [facility] Comment on above: Result Comment: PERF ORMED BY: [facility] [address] [place] [address] PATHOLOGIST LACE WEAVER MARIAM WANG M.D. Performed By: #### C MP, MG, CBC #### [facility] [address] [place] [address] [place] Basophils/100 WBC (Bld) 0.4 % Normal . [facility] Comment on above: Performed By: #### C MP, MG, CBC #### [facility] [address] Eosinophils (Bld) [#/Vol] 0.1 10*3/uL Normal 0.0-0.45 [facility] Comment on above: Performed By: #### C MP, MG, CBC #### [address] Eosinophils/100 WBC (Bld) 1.8 % Normal . [facility] Comment on above: Performed By: #### C MP, MG, CBC #### [address] Erythrocyte distribution width (RBC) [Ratio] 13.9 % Normal 12.0-14.8 [facility] Comment on above: Performed By: #### C MP, MG, CBC #### [address] Hematocrit (Bld) [Volume fraction] 34.5 % Low 38.8-50.0 [facility] Comment on above: Performed By: #### C MP, MG, CBC #### [address] Hemoglobin (Bld) [Mass/Vol] 12.1 g/dL Low 13.0-17.0 [facility] Comment on above: Performed By: #### C MP, MG, CBC #### [place] [address] [place] Lymphocytes (Bld) [#/Vol] 0.9 10*3/uL Low 1.00-4.8 [facility] Comment on above: Performed By: #### C MP, MG, CBC #### [place] [address] [place] Lymphocytes/100 WBC (Bld) 13.4 % Normal . [facility] Comment on above: Performed By: #### C MP, MG, CBC #### [address] MCH (RBC) [Entitic mass] 31.9 pg Normal 27.5-35.2 [facility] Comment on above: Performed By: #### C MP, MG, CBC #### [address] MCV (RBC) [Entitic vol] 91.1 fL Normal 83.5-101 [facility] Comment on above: Performed By: #### C MP, MG, CBC #### [address] Mean Corpuscular HGB Conc 35.0 g/dL Normal 32.5-35.6 [facility] Comment on above: Performed By: #### C MP, MG, CBC #### [address] Monocytes (Bld) [#/Vol] 0.5 10*3/uL Normal 0.0-0.8 [facility] Comment on above: Performed By: #### C MP, MG, CBC #### [address] Monocytes/100 WBC (Bld) 7.1 % Normal . [facility] Comment on above: Performed By: #### C MP, MG, CBC #### [address] Neutrophils (Bld) [#/Vol] 5.0 10*3/uL Normal 1.8-7.7 [facility] Comment on above: Performed By: #### C MP, MG, CBC #### [address] Neutrophils/100 WBC (Bld) 77.3 % Normal . [facility] Comment on above: Performed By: #### C MP, MG, CBC #### [address] NRBC% 0.1 /100{WBC} Normal 0-0.5 [facility] Comment on above: Performed By: #### C MP, MG, CBC #### [address] Platelet mean volume (Bld) [Entitic vol] 8.9 fL Normal 6.6-10.1 [facility] Comment on above: Performed By: #### C MP, MG, CBC #### [address] Platelets (Bld) [#/Vol] 136 10*3/uL Low 150-450 [facility] Comment on above: Performed By: #### C MP, MG, CBC #### [address] RBC (Bld) [#/Vol] 3.79 10*6/uL Low 3.90-5.60 [facility] Comment on above: Performed By: #### C MP, MG, CBC #### [address] WBC (Bld) [#/Vol] 6.5 10*3/uL Normal 4.1-10.5 [facility] Comment on above: Performed By: #### C MP, MG, CBC #### [address] White Blood Count 6.5 [CFU]/mL Normal 4.1-10.5 [facility] Comment on above: Performed By: #### C MP, MG, CBC #### [address] Comprehensive Metabolic Pane patricio 07-21-2025 Albumin [Mass/Vol] 3.4 g/dL Low 3.5-5.7 [facility] Comment on above: Performed By: #### C MP, MG, CBC #### [address] Albumin/Globulin [Mass ratio] 1.4 {ratio} Normal [facility] Comment on above: Performed By: #### C MP, MG, CBC #### [address] ALP [Catalytic activity/Vol] 62 U/L Normal 34-104 [facility] Comment on above: Performed By: #### C MP, MG, CBC #### [facility] [address] ALT [Catalytic activity/Vol] 10 U/L Normal 7-52 [facility] Comment on above: Performed By: #### C MP, MG, CBC #### [facility] [address] Anion gap [Moles/Vol] 7.7 mmol/L Normal 6.0-15.0 [facility] Comment on above: Performed By: #### C MP, MG, CBC #### [facility] [address] AST [Catalytic activity/Vol] 14 U/L Normal 13-39 [facility] Comment on above: Performed By: #### C MP, MG, CBC #### [address] Bilirubin [Mass/Vol] 1.1 mg/dL High 0.3-1.0 [facility] Comment on above: Performed By: #### C MP, MG, CBC #### [facility] [address] [place] [address] [place] Calcium [Mass/Vol] 8.4 mg/dL Low 8.6-10.3 [facility] Comment on above: Performed By: #### C MP, MG, CBC #### [facility] [address] [place] [address] [place] Chloride [Moles/Vol] 102 mmol/L Normal 98-107 [facility] Comment on above: Performed By: #### C MP, MG, CBC #### [facility] [address] [place] [address] [place] CO2 [Moles/Vol] 26.2 mmol/L Normal 21.0-31.0 [facility] Comment on above: Performed By: #### C MP, MG, CBC #### [facility] [address] [place] [address] [place] Creatinine [Mass/Vol] 0.88 mg/dL Normal 0.70-1.30 [facility] Comment on above: Performed By: #### C MP, MG, CBC #### [address] Creatinine Clr Calc Pharmacy 67.74 Normal [facility] Comment on above: Performed By: #### C MP, MG, CBC #### [place] [address] [place] GFR/1.73 sq M.predicted MDRD (S/P/Bld) [Vol rate/Area] mL/min/{1.73_m2} Normal [facility] Comment on above: Performed By: #### C MP, MG, CBC #### [address] Globulin (S) [Mass/Vol] 2.5 g/dL Normal [facility] Comment on above: Performed By: #### C MP, MG, CBC #### [address] Glucose [Mass/Vol] 92 mg/dL Normal 70-100 [facility] Comment on above: Result Comment: [facility] Glucose Reference Range is dependent on time and content of last meal. Glucose of more than 200 mg/dL in a nonstressed, ambulatory subject supports the diagnosis of Diabetes Mellitus. ADA recommended reference range Performed By: #### C MP, MG, CBC #### [address] Potassium [Moles/Vol] 3.9 mmol/L Normal 3.5-5.1 [facility] Comment on above: Performed By: #### C MP, MG, CBC #### [address] Protein [Mass/Vol] 5.9 g/dL Low 6.4-8.9 [facility] Comment on above: Performed By: #### C MP, MG, CBC #### [address] Sodium [Moles/Vol] 132 mmol/L Low 136-145 [facility] Comment on above: Performed By: #### C MP, MG, CBC #### [address] Urea nitrogen [Mass/Vol] 12 mg/dL Normal 7-25 [facility] Comment on above: Performed By: #### C MP, MG, CBC #### [address] Glucose Poct Glucometerson 0 07-21-2025 Glucose [Mass/Vol] 70 mg/dL Normal [facility] Comment on above: Result Comment: [place] Glucose Reference Range is dependent on time and content of last meal. Glucose of more than 200 mg/dL in a nonstressed, ambulatory subject supports the diagnosis of Diabetes Mellitus. PERFORMED BY: [place] [address] PATHOLOGIST LACE WEAVER MARIMA WANG M.D. Performed By: #### C DT #### [address] Glucose [Mass/Vol] 131 mg/dL Normal [facility] Comment on above: Result Comment: [place] Glucose Reference Range is dependent on time and content of last meal. Glucose of more than 200 mg/dL in a nonstressed, ambulatory subject supports the diagnosis of Diabetes Mellitus. PERFORMED BY: [place] [address] PATHOLOGIST LACE WEAVER MARIAM WANG M.D. Performed By: #### V ANCP #### [address] Glucose [Mass/Vol] 152 mg/dL Normal [facility] Comment on above: Result Comment: [place] Glucose Reference Range is dependent on time and content of last meal. Glucose of more than 200 mg/dL in a nonstressed, ambulatory subject supports the diagnosis of Diabetes Mellitus. PERFORMED BY: [place] [address] PATHOLOGIST LACE WEAVER MARIAM WANG M.D. Performed By: #### G LULS #### Point of Care testing , Glucose [Mass/Vol] 89 mg/dL Normal [facility] Comment on above: Result Comment: [facility] Glucose Reference Range is dependent on time and content of last meal. Glucose of more than 200 mg/dL in a nonstressed, ambulatory subject supports the diagnosis of Diabetes Mellitus. PERFORMED BY: [place] [address] PATHOLOGIST LACE WEAVER MARIAM WANG M.D. Performed By: #### G LULS #### Point of Care testing , Magnesiumon 07-21-2025 Magnesium [Mass/Vol] 1.9 mg/dL Normal 1.9-2.7 [facility] Comment on above: Result Comment: PERF ORMED BY: [place] [address] PATHOLOGIST LACE WEAVER MARIAM WANG M.D. Performed By: #### C MP, MG, CBC #### [facility] [address] [place] [address] Vancomycin,Peakon 07-21-2025 Vancomycin,Peak 23.0 Normal 20.0-40.0 [facility] Comment on above: Order Comment: > or = to 3 loose/watery stools in the last 24 HRS? Y Is patient on promotility agents or tube feeding? N Result Comment: Last dose: - PERFORMED BY: [place] [address] PATHOLOGIST LACE WEAVER MARIAM WANG M.D. Performed By: #### C DT #### [facility] [address] [place] [address] Vancomycin,Peak 18.4 Low 20.0-40.0 [facility] Comment on above: Order Comment: Comme nt ?DRAW 1 HOUR AFTER INFUSION COMPLETES Date of last dose?: [id number] Time of last dose?: 0200 Result Comment: Last dose: - PERFORMED BY: [place] [address] PATHOLOGIST LACE WEAVER MARIAM WANG M.D. Performed By: #### V ANCP #### [facility] [address] [place] [address] C-Reactive Proteinon 025 C-Reactive Protein 11.5 mg/dL High 0.0-0.5 [facility] Comment on above: Result Comment: PERF ORMED BY: [place] [address] PATHOLOGIST LACE WEAVER MARIAM WANG M.D. Performed By: #### V ANCP #### [address] Clostridium Difficileon Clostridium Difficile Negative Normal Negative [facility] Comment on above: Order Comment: > or = to 3 loose/watery stools in the last 24 HRS? Y Is patient on promotility agents or tube feeding? N Result Comment: Test ing performed by RT-PCR PERFORMED BY: [place] [address] PATHOLOGIST LACE WEAVER MARIAM WANG M.D. Performed By: #### C DT #### [address] Coagulation Profileon 2024 aPTT Coag (Bld) [Time] 34.7 s Normal 25.1-36.5 [facility] Comment on above: Result Comment: A he matocrit value greater than 55% may lead to inaccurate results in coagulation testing. Patients having hematocrit values >55% require a special collection tube for coagulation studies. Please contact the laboratory at [phone] for redraw instructions. PERFORMED BY: [place] [address] PATHOLOGIST LACE WEAVER MARIAM WANG M.D. Performed By: #### V ANCP #### [address] INR Coag (PPP) [Relative time] 1.5 {INR} Normal [facility] Comment on above: Result [...] 4.5 Performed By: #### V ANCP #### [address] PT Coag (PPP) [Time] 16.6 s High 9.0-12.9 [facility] Comment on above: Result Comment: A he matocrit value greater than 55% may lead to inaccurate results in coagulation testing. Patients having hematocrit values >55% require a special collection tube for coagulation studies. Please contact the laboratory at [phone] for redraw instructions. Performed By: #### V ANCP #### [address] Complete Blood Count Auto Di ffon 07-20-2025 Basophils (Bld) [#/Vol] 0.0 10*3/uL Normal 0.0-0.2 [facility] Comment on above: Performed By: #### V ANCP #### [address] Basophils/100 WBC (Bld) 0.3 % Normal . [facility] Comment on above: Performed By: #### V ANCP #### [address] Eosinophils (Bld) [#/Vol] 0.0 10*3/uL Normal 0.0-0.45 [facility] Comment on above: Performed By: #### V ANCP #### [address] Eosinophils/100 WBC (Bld) 0.3 % Normal . [facility] Comment on above: Performed By: #### V ANCP #### [address] Erythrocyte distribution width (RBC) [Ratio] 13.9 % Normal 12.0-14.8 [facility] Comment on above: Performed By: #### V ANCP #### [address] Hematocrit (Bld) [Volume fraction] 36.3 % Low 38.8-50.0 [facility] Comment on above: Performed By: #### V ANCP #### [address] Hemoglobin (Bld) [Mass/Vol] 12.6 g/dL Low 13.0-17.0 [facility] Comment on above: Performed By: #### V ANCP #### [address] Lymphocytes (Bld) [#/Vol] 0.9 10*3/uL Low 1.00-4.8 [facility] Comment on above: Performed By: #### V ANCP #### [address] Lymphocytes/100 WBC (Bld) 9.4 % Normal . [facility] Comment on above: Performed By: #### V ANCP #### [address] MCH (RBC) [Entitic mass] 31.9 pg Normal 27.5-35.2 [facility] Comment on above: Performed By: #### V ANCP #### [address] MCV (RBC) [Entitic vol] 91.8 fL Normal 83.5-101 [facility] Comment on above: Performed By: #### V ANCP #### [address] Mean Corpuscular HGB Conc 34.8 g/dL Normal 32.5-35.6 [facility] Comment on above: Performed By: #### V ANCP #### [address] Monocytes (Bld) [#/Vol] 0.5 10*3/uL Normal 0.0-0.8 [facility] Comment on above: Performed By: #### V ANCP #### [address] Monocytes/100 WBC (Bld) 5.6 % Normal . [facility] Comment on above: Performed By: #### V ANCP #### [facility] [address] [place] [address] [place] Neutrophils (Bld) [#/Vol] 7.9 10*3/uL High 1.8-7.7 [facility] Comment on above: Performed By: #### V ANCP #### [facility] [address] [place] [address] [place] Neutrophils/100 WBC (Bld) 84.4 % Normal . [facility] Comment on above: Performed By: #### V ANCP #### [facility] [address] [place] [address] [place] NRBC% 0.1 /100{WBC} Normal 0-0.5 [facility] Comment on above: Performed By: #### V ANCP #### [facility] [address] [place] [address] [place] Platelet mean volume (Bld) [Entitic vol] 9.3 fL Normal 6.6-10.1 [facility] Comment on above: Performed By: #### V ANCP #### [facility] [address] [place] [id number] [place] Platelets (Bld) [#/Vol] 138 10*3/uL Low 150-450 [facility] Comment on above: Performed By: #### V ANCP #### [facility] [address] [place] [id number] [place] RBC (Bld) [#/Vol] 3.96 10*6/uL Normal 3.90-5.60 [facility] Comment on above: Performed By: #### V ANCP #### [facility] [address] [place] [id number] [place] WBC (Bld) [#/Vol] 9.3 10*3/uL Normal 4.1-10.5 [facility] Comment on above: Performed By: #### V ANCP #### [facility] [address] [place] [id number] [place] White Blood Count 9.3 [CFU]/mL Normal 4.1-10.5 [facility] Comment on above: Performed By: #### V ANCP #### [address] Comprehensive Metabolic Pane patricio 07-20-2025 Albumin [Mass/Vol] 3.6 g/dL Normal 3.5-5.7 [facility] Comment on above: Performed By: #### V ANCP #### [place] [id number] [facility] Albumin/Globulin [Mass ratio] 1.6 {ratio} Normal [facility] Comment on above: Performed By: #### V ANCP #### [address] ALP [Catalytic activity/Vol] 69 U/L Normal 34-104 [facility] Comment on above: Performed By: #### V ANCP #### [address] ALT [Catalytic activity/Vol] 12 U/L Normal 7-52 [facility] Comment on above: Performed By: #### V ANCP #### [address] Anion gap [Moles/Vol] 10.3 mmol/L Normal 6.0-15.0 [facility] Comment on above: Performed By: #### V ANCP #### [address] AST [Catalytic activity/Vol] 17 U/L Normal 13-39 [facility] Comment on above: Performed By: #### V ANCP #### [address] Bilirubin [Mass/Vol] 1.5 mg/dL High 0.3-1.0 [facility] Comment on above: Result Comment: Samp les from patients who have taken Naproxen have shown spurious elevation in Total Bilirubin levels. A metabolite of Naproxen, O-desmethylnaproxen, has been shown to interfere with the Jendrindiaik-Growilber method for measuring Total Bilirubin. Performed By: #### V ANCP #### [address] Calcium [Mass/Vol] 8.7 mg/dL Normal 8.6-10.3 [facility] Comment on above: Performed By: #### V ANCP #### [address] Chloride [Moles/Vol] 100 mmol/L Normal 98-107 [facility] Comment on above: Performed By: #### V ANCP #### [address] CO2 [Moles/Vol] 27.2 mmol/L Normal 21.0-31.0 [facility] Comment on above: Performed By: #### V ANCP #### [address] Creatinine [Mass/Vol] 0.88 mg/dL Normal 0.70-1.30 [facility] Comment on above: Performed By: #### V ANCP #### [address] Creatinine Clr Calc Pharmacy 67.65 Normal [facility] Comment on above: Performed By: #### V ANCP #### [address] GFR/1.73 sq M.predicted MDRD (S/P/Bld) [Vol rate/Area] mL/min/{1.73_m2} Normal [facility] Comment on above: Performed By: #### V ANCP #### [address] Globulin (S) [Mass/Vol] 2.3 g/dL Normal [facility] Comment on above: Performed By: #### V ANCP #### [address] Glucose [Mass/Vol] 115 mg/dL High 70-100 [facility] Comment on above: Result Comment: [place] Glucose Reference Range is dependent on time and content of last meal. Glucose of more than 200 mg/dL in a nonstressed, ambulatory subject supports the diagnosis of Diabetes Mellitus. ADA recommended reference range Performed By: #### V ANCP #### [address] Potassium [Moles/Vol] 4.5 mmol/L Normal 3.5-5.1 [facility] Comment on above: Performed By: #### V ANCP #### [address] Protein [Mass/Vol] 5.9 g/dL Low 6.4-8.9 [facility] Comment on above: Performed By: #### V ANCP #### [address] Sodium [Moles/Vol] 133 mmol/L Low 136-145 [facility] Comment on above: Performed By: #### V ANCP #### [address] Urea nitrogen [Mass/Vol] 11 mg/dL Normal 7-25 [facility] Comment on above: Performed By: #### V ANCP #### [address] ECH echo transthoracicon ECH echo transthoracic [facility] [place] [address] [place] [address] Echocardiogram Signed Patient: Dariel Zabala MR#: [id number] 9 : 1940 Acct:[id number] Age/Sex: 85 / M ADM Date: 07/19/25 Loc: Room: [address] [place] [address] Type: ADM IN Attending Dr: Thalia Cervantes [...] -------+- (more content not included)... Normal [facility] Erythrocyte Sedimentation Ra lisa 07-20-2025 ESR (Bld) [Velocity] 16 mm/h Normal 0-19 [facility] Comment on above: Result Comment: PERF ORMED BY: [facility] [address] [place] [address] PATHOLOGIST LACE WEAVER MARIAM WANG M.D. Performed By: #### G LULS #### Point of Care testing , Glucose Poct Glucometerson 0 07-20-2025 Glucose [Mass/Vol] 171 mg/dL Normal [facility] Comment on above: Result Comment: [facility] Glucose Reference Range is dependent on time and content of last meal. Glucose of more than 200 mg/dL in a nonstressed, ambulatory subject supports the diagnosis of Diabetes Mellitus. PERFORMED BY: [facility] [address] [place] [address] PATHOLOGIST LACE WEAVER MARIAM WANG M.D. Performed By: #### G LULS #### Point of Care testing , Glucose [Mass/Vol] 81 mg/dL Normal [facility] Comment on above: Result Comment: [place] om Glucose Reference Range is dependent on time and content of last meal. Glucose of more than 200 mg/dL in a nonstressed, ambulatory subject supports the diagnosis of Diabetes Mellitus. PERFORMED BY: [place] [phone] PATHOLOGIST LACE WEAVER MARIAM WANG M.D. Performed By: #### V ANCP #### [address] Glucose [Mass/Vol] 184 mg/dL Normal The [facility] Comment on above: Result Comment: [place] om Glucose Reference Range is dependent on time and content of last meal. Glucose of more than 200 mg/dL in a nonstressed, ambulatory subject supports the diagnosis of Diabetes Mellitus. PERFORMED BY: [place] [address] PATHOLOGIST LACE WEAVER MARIAM WANG M.D. Performed By: #### V ANCP #### [address] Glucose [Mass/Vol] 115 mg/dL Normal The [facility] Comment on above: Result Comment: [place] om Glucose Reference Range is dependent on time and content of last meal. Glucose of more than 200 mg/dL in a nonstressed, ambulatory subject supports the diagnosis of Diabetes Mellitus. PERFORMED BY: [place] [address] PATHOLOGIST LACE WEAVER MARIAM WANG M.D. Performed By: #### V ANCP #### [address] Magnesiumon 07-20-2025 Magnesium [Mass/Vol] 1.7 mg/dL Low 1.9-2.7 [facility] Comment on above: Performed By: #### V ANCP #### [place] [id number] [facility] A1C with Estimated Average G renee 07-19-2025 Glucose [Mass/Vol] 131 mg/dL Normal [facility] Comment on above: Result Comment: PERF ORMED BY: [place] [address] PATHOLOGIST LACE WEAVER MARIAM WANG M.D. Performed By: #### V ANCP #### [address] HbA1c (Bld) [Mass fraction] 6.2 % High 4.3-5.6 [facility] Comment on above: Result Comment: Incr eased risk for diabetes: 5.7 - 6.4 diabetes: >6.4 glycemic control for adults with diabetes: <7.0 Performed By: #### V ANCP #### [address] Glucose Poct Glucometerson 0 07-19-2025 Glucose [Mass/Vol] 112 mg/dL Normal [facility] Comment on above: Result Comment: [place] Glucose Reference Range is dependent on time and content of last meal. Glucose of more than 200 mg/dL in a nonstressed, ambulatory subject supports the diagnosis of Diabetes Mellitus. PERFORMED BY: [place] [id number] PATHOLOGIST LACE WEAVER MARIAM WANG M.D. Performed By: #### G LULS #### Point of Care testing , [facility] 07-17-20 [facility] Case Information Case Priority: None Programs: -- Referral Source: Copyholder Referral Reason: Care coordination Case Type: Transition [...] (min): 7 Outcome: Case discussion Contact Type: pharmacy coordinator Contact Name: Ania Crews Notes: See [...] return call. Created By: Alec Rodrigez Normal [facility] Sodiumon 07-12-2025 Sodium [Moles/Vol] 131 mmol/L Low 135-145 [facility] Comment on above: Performed By: #### 2 [id number] #### [facility] [address] [place] [address] Ambulatory Visit Summaryon 0 07-11-2025 Ambulatory Visit [...] AM EDT With: YANIQUE MCNEILL CNP Where: [place] [id number] 8:00 AM EDT With: Where: [address] [phone]- Medications What How Much When Why Instructions [...] disease BMI 23.0-23.9, adult Nonsmoker Natural Lemon [place] flavor Contact prescribing physician if questions or [...] for Prop (more content not included)... Normal [facility] Family Medicine Office/Clini c Noteon 07-11-2025 Family Medicine Office/Clinic Note Family Medicine Office/Clinic Note Chief Complaint TCM visit The patient presents for medication management and sodium level evaluation. HPI Staff Pt presents today for TCM visit. Hospital: [facility] Admission date: 06/17/25 Discharge date: 06/23/25 Symptoms the patient presented with: CVA & Low Sodium Current concerns: Concerned with medications. History of Present Illness 85-year-old male presenting with his for a TCM appointment following discharge from the [place]. He is here for sodium level evaluation [...] qualifying data available Patient Education Stroke Prevention, Fttn-os-[id number] Problem List/Past Medical History Ongoing ASCVD (arteriosclerotic [...] mg Cap-DR, (more content not included)... Normal [facility] Comment on above: Result Comment: Elec tronically Signed By: YANIQUE MCNEILL CNP\.br\Date and Time Signed: 07/11/25 15:05 EDT [facility] 07-08-20 [facility] Case Information Case Priority: None Programs: -- Referral Source: Copyholder Referral Reason: Care coordination Case Type: Transition [...] to bed at 2100, get up around 2229-1250, sleep through the night Are you having [...] TCM follow up. 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 [...] good.' (more content not included)... Normal [facility] Family Medicine Office/Clini c Noteon 07-04-2025 Family [...] and is currently under transitional care. A healthcare market consultant is expected to contact the patient to [...] No qualifying data available Patient Education Hyponatremia, Ibhd-[id number] Problem List/Past Medical History Ongoing ASCVD (arteriosclerotic [...] Normal [facility] Comment on above: Result Comment: Elec tronically Signed By: YANIQUE MCNEILL CNP\.br\Date and Time Signed: 07/04/25 14:55 EDT Basic Metabolic Panelon 06-14 Anion gap [Moles/Vol] 7 mmol/L 5 - 15 mmol/L [facility] Calcium [Mass/Vol] 9.9 mg/dL 8.5 - 10. 5 mg/dL [facility] Chloride [Moles/Vol] 95 mmol/L Low 98 - 10 9 mmol/L [facility] CO2 [Moles/Vol] 31 mmol/L 22 - 32 mmol/L [facility] Creatinine [Mass/Vol] 0.8 mg/dL 0.60 - 1.30 mg/dL [facility] Comment on above: METHOD TRACEABLE TO IDMS STANDARD EGFR Non-Race Dependent 88 - PINF [facility] Comment on above: Reported eGFR is bas ed on the CKD-EPI 2020 equation that does not use a race coefficient. Glucose [Mass/Vol] 101 mg/dL High 65 - 99 mg/dL [facility] Potassium [Moles/Vol] 4.5 mmol/L 3.5 - 5.0 mmol/L [facility] Sodium [Moles/Vol] 133 mmol/L Low 134 - 146 mmol/L [facility] Urea nitrogen [Mass/Vol] 29 mg/dL High 5 - 27 mg/dL [facility] CBC auto differentialon 06-14 Basophils (Bld) [#/Vol] 0.1 10*3/uL 0.0 - 0.2 10*3/uL [facility] Basophils/100 WBC (Bld) 1.5 % [facility] Differential cell count method Nom (Bld) AUTOMATED DIFFERENTIAL [facility] Eosinophils (Bld) [#/Vol] 0.1 10*3/uL 0.0 - 0.4 10*3/uL [facility] Eosinophils/100 WBC (Bld) 3 % [facility] Erythrocyte distribution width (RBC) [Ratio] 13.8 % 11.5 - 15 % [facility] Hematocrit (Bld) [Volume fraction] 40 % 39 - 50 % [facility] Hemoglobin (Bld) [Mass/Vol] 13.8 g/dL 13 - 17 g/dL [facility] Lymphocytes (Bld) [#/Vol] 1.5 10*3/uL 1.0 - 3.5 10*3/uL [facility] Lymphocytes/100 WBC (Bld) 34.7 % [facility] MCH (RBC) [Entitic mass] 31.3 pg 27 - [address] [facility] MCHC (RBC) [Mass/Vol] 34.5 g/dL 32 - 3 6 g/dL [facility] MCV (RBC) [Entitic vol] 91 fL 80 - [address] [facility] Monocytes (Bld) [#/Vol] 0.4 10*3/uL 0.0 - 0.9 10*3/uL [facility] Monocytes/100 WBC (Bld) 10.2 % [facility] Neutrophils (Bld) [#/Vol] 2.1 10*3/uL 1.5 - 6.6 10*3/uL [facility] Neutrophils/100 WBC (Bld) 50.6 % [facility] Platelet mean volume (Bld) [Entitic vol] 9.5 fL 7 - 12 fL [facility] Platelets (Bld) [#/Vol] 234 10*3/uL [facility] RBC (Bld) [#/Vol] 4.4 10*6/uL [facility] WBC LM Ql (Sput) 4.2 [facility] ECG 12 Leadon 06-23-2025 TRACEMASTERVUE [facility] Electrolyte panelon 06-23-20 25 Anion gap [Moles/Vol] 10 mmol/L 5 - 15 mmol/L [facility] Chloride [Moles/Vol] 96 mmol/L Low 98 - 10 9 mmol/L [facility] CO2 [Moles/Vol] 27 mmol/L 22 - 32 mmol/L [facility] Interpretation and review of laboratory results Abnormal [facility] Potassium [Moles/Vol] 4.2 mmol/L 3.5 - 5.0 mmol/L [facility] Sodium [Moles/Vol] 133 mmol/L Low 134 - 146 mmol/L [facility] Ionized calciumon 06-23-2025 Calcium.ionized ISE [Moles/Vol] 5.1 mg/dL 4.5 - 5.3 mg/dL [facility] Interpretation and review of laboratory results Normal [facility] Magnesiumon 06-23-2025 Magnesium [Mass/Vol] 1.6 mg/dL Low 1.8 - 2 .6 mg/dL [facility] No Panel Informationon 06-23 Interpretation and review of laboratory results Abnormal [facility] Phosphoruson 06-23-2025 Interpretation and review of laboratory results Normal [facility] Phosphate [Mass/Vol] 3.5 mg/dL 2.4 - 4 .9 mg/dL [facility] Protime & INROrdered By: Lucy Branham on 06-23-2025 INR Coag (Platelet poor plasma or blood) [Relative time] 2.8 High 0.9 - 1.[address] [facility] Interpretation and review of laboratory results Abnormal [facility] PT Coag (PPP) [Time] 32.[address] [facility] Anti XA unfractionated hepar inOrdered By: Mindy Conklin on 06-22-2025 Heparin unfractionated Chromogenic method Qn (PPP) 0.[address] [facility] Comment on above: Optimal time for raimundo ting is 6 hrs post dosage This test is specific for monitoring patients on UFH, and is not recommended for use with other Anti-Xa medications. Interpretation and review of laboratory results Normal [facility] Basic Metabolic Panelon Anion gap [Moles/Vol] 8 mmol/L 5 - 15 mmol/L [facility] Calcium [Mass/Vol] 9.1 mg/dL 8.5 - 10. 5 mg/dL [facility] Chloride [Moles/Vol] 93 mmol/L Low 98 - 10 9 mmol/L [facility] CO2 [Moles/Vol] 26 mmol/L 22 - 32 mmol/L [facility] Creatinine [Mass/Vol] 0.76 mg/dL 0.60 - 1.30 mg/dL [facility] Comment on above: METHOD TRACEABLE TO IDMN STANDARD EGFR Non-Race Dependent 89 - PINF [facility] Comment on above: Reported eGFR is bas ed on the CKD-EPI 2020 equation that does not use a race coefficient. Glucose [Mass/Vol] 135 mg/dL High 65 - 99 mg/dL [facility] Interpretation and review of laboratory results Abnormal [facility] Potassium [Moles/Vol] 4.3 mmol/L 3.5 - 5.0 mmol/L [facility] Sodium [Moles/Vol] 127 mmol/L Low 134 - 146 mmol/L [facility] Urea nitrogen [Mass/Vol] 35 mg/dL High 5 - 27 mg/dL [facility] CBC auto differentialon Basophils (Bld) [#/Vol] 0.1 10*3/uL 0.0 - 0.2 10*3/uL [facility] Basophils/100 WBC (Bld) 1.3 % [facility] Differential cell count method Nom (Bld) AUTOMATED DIFFERENTIAL [facility] Eosinophils (Bld) [#/Vol] 0.1 10*3/uL 0.0 - 0.4 10*3/uL [facility] Eosinophils/100 WBC (Bld) 2 % [facility] Erythrocyte distribution width (RBC) [Ratio] 13.5 % 11.5 - 15 % [facility] Hematocrit (Bld) [Volume fraction] 36.3 % Low 39 - 50 % [facility] Hemoglobin (Bld) [Mass/Vol] 12.5 g/dL Low 13 - 17 g/dL [facility] Interpretation and review of laboratory results Abnormal [facility] Lymphocytes (Bld) [#/Vol] 1.5 10*3/uL 1.0 - 3.5 10*3/uL [facility] Lymphocytes/100 WBC (Bld) 26.9 % [facility] MCH (RBC) [Entitic mass] 31.2 pg 27 - [address] [facility] MCHC (RBC) [Mass/Vol] 34.4 g/dL 32 - 3 6 g/dL [facility] MCV (RBC) [Entitic vol] 91 fL 80 - [address] [facility] Monocytes (Bld) [#/Vol] 0.7 10*3/uL 0.0 - 0.9 10*3/uL [facility] Monocytes/100 WBC (Bld) 12.2 % [facility] Neutrophils (Bld) [#/Vol] 3.3 10*3/uL 1.5 - 6.6 10*3/uL [facility] Neutrophils/100 WBC (Bld) 57.6 % [facility] Platelet mean volume (Bld) [Entitic vol] 9.8 fL 7 - 12 fL [facility] Platelets (Bld) [#/Vol] 212 10*3/uL [facility] RBC (Bld) [#/Vol] 4 10*6/uL [facility] WBC LM Ql (Sput) 5.6 [facility] Electrolyte panelon 06-22-20 25 Anion gap [Moles/Vol] 8 mmol/L 5 - 15 mmol/L [facility] Chloride [Moles/Vol] 93 mmol/L Low 98 - 10 9 mmol/L [facility] CO2 [Moles/Vol] 28 mmol/L 22 - 32 mmol/L [facility] Interpretation and review of laboratory results Abnormal [facility] Potassium [Moles/Vol] 4.4 mmol/L 3.5 - 5.0 mmol/L [facility] Sodium [Moles/Vol] 129 mmol/L Low 134 - 146 mmol/L [facility] Anion gap [Moles/Vol] 7 mmol/L 5 - 15 mmol/L [facility] Chloride [Moles/Vol] 94 mmol/L Low 98 - 10 9 mmol/L [facility] CO2 [Moles/Vol] 28 mmol/L 22 - 32 mmol/L [facility] Interpretation and review of laboratory results Abnormal [facility] Potassium [Moles/Vol] 4.4 mmol/L 3.5 - 5.0 mmol/L [facility] Sodium [Moles/Vol] 129 mmol/L Low 134 - 146 mmol/L [facility] Lavender Topon 06-22-2025 Extra Tube Auto Resulted [facility] No Panel Informationon 06-22 [facility] Protime & INRon 06-22-2025 INR Coag (Platelet poor plasma or blood) [Relative time] 1.8 High 0.9 - 1.[address] [facility] Interpretation and review of laboratory results Abnormal [facility] PT Coag (PPP) [Time] 19.9 s High [facility] Anti XA unfractionated hepar inon 06-21-2025 Heparin unfractionated Chromogenic method Qn (PPP) 0.[address] [facility] Comment on above: Optimal time for raimundo ting is 6 hrs post dosage This test is specific for monitoring patients on UFH, and is not recommended for use with other Anti-Xa medications. Interpretation and review of laboratory results Normal [facility] Heparin unfractionated Chromogenic method Qn (PPP) 0.[address] [facility] Comment on above: Optimal time for raimundo ting is 6 hrs post dosage This test is specific for monitoring patients on UFH, and is not recommended for use with other Anti-Xa medications. Interpretation and review of laboratory results Normal [facility] Basic Metabolic Panelon Anion gap [Moles/Vol] 9 mmol/L 5 - 15 mmol/L [facility] Calcium [Mass/Vol] 9 mg/dL 8.5 - 10. 5 mg/dL [facility] Chloride [Moles/Vol] 93 mmol/L Low 98 - 10 9 mmol/L [facility] CO2 [Moles/Vol] 25 mmol/L 22 - 32 mmol/L [facility] Creatinine [Mass/Vol] 0.72 mg/dL 0.60 - 1.30 mg/dL [facility] Comment on above: METHOD TRACEABLE TO IDMN STANDARD EGFR Non-Race Dependent - PINF [facility] Comment on above: Reported eGFR is bas ed on the CKD-EPI 2020 equation that does not use a race coefficient. Glucose [Mass/Vol] 121 mg/dL High 65 - 99 mg/dL [facility] Interpretation and review of laboratory results Abnormal [facility] Potassium [Moles/Vol] 4.5 mmol/L 3.5 - 5.0 mmol/L [facility] Sodium [Moles/Vol] 127 mmol/L Low 134 - 146 mmol/L [facility] Urea nitrogen [Mass/Vol] 25 mg/dL 5 - 27 mg/dL [facility] C-reactive proteinon 025 CRP [Mass/Vol] 8.9 mg/dL High NINF - 0.7 mg/dL [facility] Interpretation and review of laboratory results Abnormal [facility] CBC auto differentialon Basophils (Bld) [#/Vol] 0.1 10*3/uL 0.0 - 0.2 10*3/uL [facility] Basophils/100 WBC (Bld) 1.1 % [facility] Differential cell count method Nom (Bld) AUTOMATED DIFFERENTIAL [facility] Eosinophils (Bld) [#/Vol] 0 10*3/uL 0.0 - 0.4 10*3/uL [facility] Eosinophils/100 WBC (Bld) 0.9 % [facility] Erythrocyte distribution width (RBC) [Ratio] 13.8 % 11.5 - 15 % [facility] Hematocrit (Bld) [Volume fraction] 40.7 % 39 - 50 % [facility] Hemoglobin (Bld) [Mass/Vol] 14.1 g/dL 13 - 17 g/dL [facility] Lymphocytes (Bld) [#/Vol] 1.5 10*3/uL 1.0 - 3.5 10*3/uL [facility] Lymphocytes/100 WBC (Bld) 28.5 % [facility] MCH (RBC) [Entitic mass] 30.9 pg 27 - [address] [facility] MCHC (RBC) [Mass/Vol] 34.7 g/dL 32 - 3 6 g/dL [facility] MCV (RBC) [Entitic vol] 89 fL 80 - [address] [facility] Monocytes (Bld) [#/Vol] 0.6 10*3/uL 0.0 - 0.9 10*3/uL [facility] Monocytes/100 WBC (Bld) 12 % [facility] Neutrophils (Bld) [#/Vol] 3 10*3/uL 1.5 - 6.6 10*3/uL [facility] Neutrophils/100 WBC (Bld) 57.5 % [facility] Platelet mean volume (Bld) [Entitic vol] 9.7 fL 7 - 12 fL [facility] Platelets (Bld) [#/Vol] 189 10*3/uL [facility] RBC (Bld) [#/Vol] 4.56 10*6/uL [facility] WBC LM Ql (Sput) 5.3 [facility] CK Totalon 06-21-2025 CK [Catalytic activity/Vol] 26 U/L 24 - 195 U/L [facility] Interpretation and review of laboratory results Normal [facility] CT Head WO contraston 2024 [...] Esau Restrepo MD on 06/21/2025 10:[address] [facility] Radiology Study observation (narrative) [facility] CT Head WO contrastOrdered B y: Esau Restrepo on 06-21-2025 [facility] Work Phone: Electrolyte panelon 06-21-20 25 Anion gap [Moles/Vol] 8 mmol/L 5 - 15 mmol/L [facility] Chloride [Moles/Vol] 92 mmol/L Low 98 - 10 9 mmol/L [facility] CO2 [Moles/Vol] 26 mmol/L 22 - 32 mmol/L [facility] Interpretation and review of laboratory results Abnormal [facility] Potassium [Moles/Vol] 4.8 mmol/L 3.5 - 5.0 mmol/L [facility] Sodium [Moles/Vol] 126 mmol/L Low 134 - 146 mmol/L [facility] Anion gap [Moles/Vol] 9 mmol/L 5 - 15 mmol/L [facility] Chloride [Moles/Vol] 93 mmol/L Low 98 - 10 9 mmol/L [facility] CO2 [Moles/Vol] 25 mmol/L 22 - 32 mmol/L [facility] Interpretation and review of laboratory results Abnormal [facility] Potassium [Moles/Vol] 4.4 mmol/L 3.5 - 5.0 mmol/L [facility] Sodium [Moles/Vol] 127 mmol/L Low 134 - 146 mmol/L [facility] Anion gap [Moles/Vol] 9 mmol/L 5 - 15 mmol/L [facility] Chloride [Moles/Vol] 90 mmol/L Low 98 - 10 9 mmol/L [facility] CO2 [Moles/Vol] 25 mmol/L 22 - 32 mmol/L [facility] Interpretation and review of laboratory results Abnormal [facility] Potassium [Moles/Vol] 4.6 mmol/L 3.5 - 5.0 mmol/L [facility] Sodium [Moles/Vol] 124 mmol/L Low 134 - 146 mmol/L [facility] Erythrocyte Sedimentation Ra te (ESR)on 06-21-2025 ESR (Bld) [Velocity] 46 mm/h High 0 - 20 mm/h [facility] Interpretation and review of laboratory results Abnormal [facility] Gas panel (BldV)on Arterial patency Wrist artery --pre arterial puncture N/A [facility] Base excess Calc (Bld) [Moles/Vol] 2 mmol/L 0.0 - 2.0 mmol/L [facility] CO2 (BldV) [Partial pressure] 51.8 mm[Hg] High [facility] HCO3 (Bld) [Moles/Vol] 28.7 mmol/L High 20.0 - 24.0 mmol/L [facility] Interpretation and review of laboratory results Abnormal [facility] Oxygen (BldV) [Partial pressure] 29 mm[Hg] Low [facility] Oxygen therapy source and amount [CARE] Room Air [facility] Oxygen/Inspired gas setting [Volume Fraction] Ventilator 21 % [facility] pH (BldV) 7.351 [pH] 7.320 - 7.[address] [facility] SaO2% Calculated from oxygen partial pressure (BldV) [Mass fraction] 50 % [facility] Specimen site Narrative N/A [facility] Specimen type Nom (Spec) VENOUS [facility] No Panel Informationon 06-21 [facility] Protime & INRon 06-21-2025 INR Coag (Platelet poor plasma or blood) [Relative time] 1.6 High 0.9 - 1.[address] [facility] Interpretation and review of laboratory results Abnormal [facility] PT Coag (PPP) [Time] 17.7 s High [facility] Anti XA unfractionated hepar inon 06-20-2025 Heparin unfractionated Chromogenic method Qn (PPP) 0.[address] [facility] Comment on above: Optimal time for raimundo ting is 6 hrs post dosage This test is specific for monitoring patients on UFH, and is not recommended for use with other Anti-Xa medications. Interpretation and review of laboratory results Normal [facility] Basic Metabolic Panelon Anion gap [Moles/Vol] 8 mmol/L 5 - 15 mmol/L [facility] Calcium [Mass/Vol] 9 mg/dL 8.5 - 10. 5 mg/dL [facility] Chloride [Moles/Vol] 89 mmol/L Low 98 - 10 9 mmol/L [facility] CO2 [Moles/Vol] 27 mmol/L 22 - 32 mmol/L [facility] Creatinine [Mass/Vol] 0.73 mg/dL 0.60 - 1.30 mg/dL [facility] Comment on above: METHOD TRACEABLE TO IDMS STANDARD EGFR Non-Race Dependent 90 - PINF [facility] Comment on above: Reported eGFR is bas ed on the CKD-EPI 2020 equation that does not use a race coefficient. Glucose [Mass/Vol] 98 mg/dL 65 - 99 mg/dL [facility] Potassium [Moles/Vol] 4.3 mmol/L 3.5 - 5.0 mmol/L [facility] Sodium [Moles/Vol] 124 mmol/L Low 134 - 146 mmol/L [facility] Urea nitrogen [Mass/Vol] 12 mg/dL 5 - 27 mg/dL [facility] CBC auto differentialon 080 Basophils (Bld) [#/Vol] 0.1 10*3/uL 0.0 - 0.2 10*3/uL [facility] [facility] Basophils/100 WBC (Bld) 1 % [facility] Differential cell count method Nom (Bld) AUTOMATED DIFFERENTIAL [facility] Eosinophils (Bld) [#/Vol] 0.1 10*3/uL 0.0 - 0.4 10*3/uL [facility] Eosinophils/100 WBC (Bld) 1.2 % [facility] Erythrocyte distribution width (RBC) [Ratio] 13.8 % 11.5 - 15 % [facility] Hematocrit (Bld) [Volume fraction] 38.1 % Low 39 - 50 % [facility] Hemoglobin (Bld) [Mass/Vol] 13.3 g/dL 13 - 17 g/dL [facility] Interpretation and review of laboratory results Abnormal [facility] Lymphocytes (Bld) [#/Vol] 1.5 10*3/uL 1.0 - 3.5 10*3/uL [facility] Lymphocytes/100 WBC (Bld) 22.4 % [facility] MCH (RBC) [Entitic mass] 31.3 pg 27 - [address] [facility] MCHC (RBC) [Mass/Vol] 34.9 g/dL 32 - 3 6 g/dL [facility] MCV (RBC) [Entitic vol] 90 fL 80 - [address] [facility] Monocytes (Bld) [#/Vol] 0.7 10*3/uL 0.0 - 0.9 10*3/uL [facility] Monocytes/100 WBC (Bld) 10.7 % [facility] Neutrophils (Bld) [#/Vol] 4.2 10*3/uL 1.5 - 6.6 10*3/uL [facility] Neutrophils/100 WBC (Bld) 64.7 % [facility] Platelet mean volume (Bld) [Entitic vol] 9.5 fL 7 - 12 fL [facility] Platelets (Bld) [#/Vol] 204 10*3/uL [facility] RBC (Bld) [#/Vol] 4.25 10*6/uL [facility] WBC LM Ql (Sput) 6.[address] [facility] DISCONTINUE IN PROCESS EEG T ESTINGOrdered By: Documentation Systemgenerated on 06-20-2025 [facility] Work Phone: Electrolyte panelon 06-20-20 25 Anion gap [Moles/Vol] 8 mmol/L 5 - 15 mmol/L [facility] Chloride [Moles/Vol] 90 mmol/L Low 98 - 10 9 mmol/L [facility] CO2 [Moles/Vol] 24 mmol/L 22 - 32 mmol/L [facility] Interpretation and review of laboratory results Abnormal [facility] Potassium [Moles/Vol] 4.8 mmol/L 3.5 - 5.0 mmol/L [facility] Sodium [Moles/Vol] 122 mmol/L Low 134 - 146 mmol/L [facility] Anion gap [Moles/Vol] 8 mmol/L 5 - 15 mmol/L [facility] Chloride [Moles/Vol] 90 mmol/L Low 98 - 10 9 mmol/L [facility] CO2 [Moles/Vol] 24 mmol/L 22 - 32 mmol/L [facility] Interpretation and review of laboratory results Abnormal [facility] Potassium [Moles/Vol] 4.6 mmol/L 3.5 - 5.0 mmol/L [facility] Sodium [Moles/Vol] 122 mmol/L Low 134 - 146 mmol/L [facility] Anion gap [Moles/Vol] 8 mmol/L 5 - 15 mmol/L [facility] Chloride [Moles/Vol] 90 mmol/L Low 98 - 10 9 mmol/L [facility] CO2 [Moles/Vol] 24 mmol/L 22 - 32 mmol/L [facility] Interpretation and review of laboratory results Abnormal [facility] Potassium [Moles/Vol] 4.3 mmol/L 3.5 - 5.0 mmol/L [facility] Sodium [Moles/Vol] 122 mmol/L Low 134 - 146 mmol/L [facility] Holter monitor studyon 06-20 Images from the original result were not included. Continuous video EEG monitoring study Date of Report: 06/20/2025 History: This is a n 85 yo man with altered mental status, concern for seizures. Procedure: Start: 20:37 06/19/2025 End: 06:30 06/20/2025 This is a standard [facility] EEG monitoring report using scalp and [...] or primary neurological disorders. Yaquelin Esparza MD Quality Assurance Inspector Neurology/Neurophysi ology [place] [facility] MANUALLY TRANSCRIBED RESULTS [facility] Lavender Topon 06-20-2025 Extra Tube Auto Resulted [facility] No Panel Informationon 06-20 [facility] Interpretation and review of laboratory results Abnormal [facility] Osmolality, urineOrdered By: Dixon Rodriguez on 06-20-2025 Interpretation and review of laboratory results Normal [facility] Osmolality (U) [Osmolality] 565 mosm/kg [facility] Protime & INRon 06-20-2025 INR Coag (Platelet poor plasma or blood) [Relative time] 1.3 High 0.9 - 1.[address] [facility] PT Coag (PPP) [Time] 15 s High [facility] Sodium, urine, randomon Sodium (U) [Moles/Vol] 64 mmol/L [facility] Thyroid profile includes TSH FT4on 06-20-2025 Free T4 [Mass/Vol] 1.13 ng/dL 0.61 - 1. 60 ng/dL [facility] Interpretation and review of laboratory results Abnormal [facility] TSH Qn 4.83 m[IU]/L High [facility] Uric acidon 06-20-2025 Interpretation and review of laboratory results Normal [facility] Urate [Mass/Vol] 4.4 mg/dL 2.6 - 7.2 mg/dL [facility] Urine Creatinine,randomon Creatinine (U) [Mass/Vol] 150.26 mg/dL [facility] Anti XA unfractionated hepar inon 06-19-2025 Heparin unfractionated Chromogenic method Qn (PPP) 0.[address] [facility] Comment on above: Optimal time for raimundo ting is 6 hrs post dosage This test is specific for monitoring patients on UFH, and is not recommended for use with other Anti-Xa medications. Interpretation and review of laboratory results Normal [facility] Anti XA unfractionated hepar inOrdered By: Barbra Howell on 06-19-2025 Heparin unfractionated Chromogenic method Qn (PPP) 0.[address] [facility] Comment on above: Optimal time for raimundo ting is 6 hrs post dosage This test is specific for monitoring patients on UFH, and is not recommended for use with other Anti-Xa medications. Interpretation and review of laboratory results Normal [facility] Basic Metabolic Panelon Anion gap [Moles/Vol] 9 mmol/L 5 - 15 mmol/L [facility] Calcium [Mass/Vol] 8.8 mg/dL 8.5 - 10. 5 mg/dL [facility] Chloride [Moles/Vol] 88 mmol/L Low 98 - 10 9 mmol/L [facility] CO2 [Moles/Vol] 26 mmol/L 22 - 32 mmol/L [facility] Creatinine [Mass/Vol] 0.73 mg/dL 0.60 - 1.30 mg/dL [facility] Comment on above: METHOD TRACEABLE TO IDMS STANDARD EGFR Non-Race Dependent 90 - PINF [facility] Comment on above: Reported eGFR is bas ed on the CKD-EPI 2020 equation that does not use a race coefficient. Glucose [Mass/Vol] 104 mg/dL High 65 - 99 mg/dL [facility] Interpretation and review of laboratory results Abnormal [facility] Potassium [Moles/Vol] 4.3 mmol/L 3.5 - 5.0 mmol/L [facility] Sodium [Moles/Vol] 123 mmol/L Low 134 - 146 mmol/L [facility] Urea nitrogen [Mass/Vol] 10 mg/dL 5 - 27 mg/dL [facility] CBC auto differentialon Basophils (Bld) [#/Vol] 0.1 10*3/uL 0.0 - 0.2 10*3/uL [facility] Basophils/100 WBC (Bld) 0.7 % [facility] Differential cell count method Nom (Bld) AUTOMATED DIFFERENTIAL [facility] Eosinophils (Bld) [#/Vol] 0.1 10*3/uL 0.0 - 0.4 10*3/uL [facility] Eosinophils/100 WBC (Bld) 1.1 % [facility] Erythrocyte distribution width (RBC) [Ratio] 13.5 % 11.5 - 15 % [facility] Hematocrit (Bld) [Volume fraction] 38.7 % Low 39 - 50 % [facility] Hemoglobin (Bld) [Mass/Vol] 13.4 g/dL 13 - 17 g/dL [facility] Interpretation and review of laboratory results Abnormal [facility] Lymphocytes (Bld) [#/Vol] 1.3 10*3/uL 1.0 - 3.5 10*3/uL [facility] Lymphocytes/100 WBC (Bld) 16 % [facility] MCH (RBC) [Entitic mass] 31.1 pg 27 - [address] [facility] MCHC (RBC) [Mass/Vol] 34.6 g/dL 32 - 3 6 g/dL [facility] MCV (RBC) [Entitic vol] 90 fL 80 - 100 fL [facility] Monocytes (Bld) [#/Vol] 1 10*3/uL High 0.0 - 0.9 10*3/uL [facility] Monocytes/100 WBC (Bld) 12.6 % [facility] Neutrophils (Bld) [#/Vol] 5.5 10*3/uL 1.5 - 6.6 10*3/uL [facility] Neutrophils/100 WBC (Bld) 69.6 % [facility] Platelet mean volume (Bld) [Entitic vol] 8.8 fL 7 - 12 fL [facility] Platelets (Bld) [#/Vol] 200 10*3/uL [facility] RBC (Bld) [#/Vol] 4.31 10*6/uL [facility] WBC LM Ql (Sput) 7.9 [facility] [employer] [facility] Cardiac echo study Procedure Ordered By: Abel Gross on 06-19-2025 Est. RA pressure 15 mmHg [facility] Work Phone: [facility] [employer] Work Phone: Cardiac echo study Procedure on [...] globally hypokinetic. [facility] Radiology Study observation (narrative) [facility] Electrolyte panelon 06-19-20 25 Anion gap [Moles/Vol] 7 mmol/L 5 - 15 mmol/L [facility] Chloride [Moles/Vol] 89 mmol/L Low 98 - 10 9 mmol/L [facility] CO2 [Moles/Vol] 24 mmol/L 22 - 32 mmol/L [facility] Interpretation and review of laboratory results Abnormal [facility] Potassium [Moles/Vol] 4.7 mmol/L 3.5 - 5.0 mmol/L [facility] Sodium [Moles/Vol] 120 mmol/L Low 134 - 146 mmol/L [facility] Magnesiumon 06-19-2025 Interpretation and review of laboratory results Normal [facility] Magnesium [Mass/Vol] 2.3 mg/dL 1.8 - 2 .6 mg/dL [facility] No Panel Informationon 06-19 [facility] US Carotid arteries - bilate ralon [...] at the phone number beside their name. [facility] Radiology Study observation (narrative) [facility] US Carotid arteries - bilate ralOrdered By: Abel Ballesteros on 06-19-2025 [facility] [employer] Work Phone: APTTon 06-18-2025 aPTT Coag (PPP) [Time] [address] [facility] Interpretation and review of laboratory results Normal [facility] Anti XA unfractionated hepar inon 06-18-2025 Heparin unfractionated Chromogenic method Qn (PPP) 0.[address] [facility] Comment on above: Optimal time for raimundo ting is 6 hrs post dosage This test is specific for monitoring patients on UFH, and is not recommended for use with other Anti-Xa medications. Interpretation and review of laboratory results Abnormal [facility] Basic Metabolic Panelon 08-0 Anion gap [Moles/Vol] 10 mmol/L 5 - 15 mmol/L [facility] Calcium [Mass/Vol] 9.1 mg/dL 8.5 - 10. 5 mg/dL [facility] Chloride [Moles/Vol] 93 mmol/L Low 98 - 10 9 mmol/L [facility] CO2 [Moles/Vol] 24 mmol/L 22 - 32 mmol/L [facility] Creatinine [Mass/Vol] 0.71 mg/dL 0.60 - 1.30 mg/dL [facility] Comment on above: METHOD TRACEABLE TO IDMS STANDARD EGFR Non-Race Dependent - PINF [facility] Comment on above: Reported eGFR is bas ed on the CKD-EPI 2020 equation that does not use a race coefficient. Glucose [Mass/Vol] 81 mg/dL 65 - 99 mg/dL [facility] Interpretation and review of laboratory results Abnormal [facility] Potassium [Moles/Vol] 4.3 mmol/L 3.5 - 5.0 mmol/L [facility] Sodium [Moles/Vol] 127 mmol/L Low 134 - 146 mmol/L [facility] Urea nitrogen [Mass/Vol] 10 mg/dL 5 - 27 mg/dL [facility] Bedside Glucose *Place/Obtai n serum glucose if >500 per glucometer.on 06-18-2025 Glucose [Mass/Vol] 154 mg/dL High 65 - 99 mg/dL [facility] Interpretation and review of laboratory results Abnormal [facility] CBC auto differentialon Basophils (Bld) [#/Vol] 0.1 10*3/uL 0.0 - 0.2 10*3/uL [facility] Basophils/100 WBC (Bld) 1.5 % [facility] Differential cell count method Nom (Bld) AUTOMATED DIFFERENTIAL [facility] Eosinophils (Bld) [#/Vol] 0.2 10*3/uL 0.0 - 0.4 10*3/uL [facility] Eosinophils/100 WBC (Bld) 3.7 % [facility] Erythrocyte distribution width (RBC) [Ratio] 13.3 % 11.5 - 15 % [facility] Hematocrit (Bld) [Volume fraction] 36 % Low 39 - 50 % [facility] Hemoglobin (Bld) [Mass/Vol] 12.7 g/dL Low 13 - 17 g/dL [facility] Interpretation and review of laboratory results Abnormal [facility] Lymphocytes (Bld) [#/Vol] 1.2 10*3/uL 1.0 - 3.5 10*3/uL [facility] Lymphocytes/100 WBC (Bld) 22.7 % [facility] MCH (RBC) [Entitic mass] 31.5 pg 27 - [address] [facility] MCHC (RBC) [Mass/Vol] 35.4 g/dL 32 - 3 6 g/dL [facility] MCV (RBC) [Entitic vol] 89 fL 80 - 100 fL [facility] Monocytes (Bld) [#/Vol] 0.6 10*3/uL 0.0 - 0.9 10*3/uL [facility] Monocytes/100 WBC (Bld) 11.6 % [facility] Neutrophils (Bld) [#/Vol] 3.3 10*3/uL 1.5 - 6.6 10*3/uL [facility] Neutrophils/100 WBC (Bld) 60.5 % [facility] Platelet mean volume (Bld) [Entitic vol] 9.5 fL 7 - 12 fL [facility] Platelets (Bld) [#/Vol] 251 10*3/uL [facility] RBC (Bld) [#/Vol] 4.05 10*6/uL Low [facility] WBC LM Ql (Sput) 5.4 [facility] EEGon 06-18-2025 Images from [...] or primary neurological disorders. Yaquelin Esparza MD Quality Assurance Inspector Neurology/Neurophysi ology [place] [facility] MANUALLY TRANSCRIBED RESULTS EEGOrdered By: Yaquelin Esparza on 06-18-2025 [facility] [employer] Work Phone: Hemoglobinon 06-18-2025 Hemoglobin (Bld) [Mass/Vol] 13.9 g/dL 13 - 17 g/dL [facility] Hemoglobin A1con 06-18-2025 Average glucose Estimated from glycated hemoglobin (Bld) [Mass/Vol] 117 mg/dL [facility] HbA1c (Bld) [Mass fraction] 5.7 % High 4.4 - 5.6 % [facility] Comment on above: ADA Guidelines Result HgbA1c Normal : less than 5.7 % Prediabetes : 5.7 % to 6.4 % Diabetes : > 6.4 % Use with caution in patients with abnormal hemoglobin variants as the half-life of red blood cells and in vivo glycation rates are affected. Interpretation and review of laboratory results Abnormal [facility] Lipid profileon 06-18-2025 Cholesterol [Mass/Vol] 150 mg/dL 150 - 200 mg/dL [facility] Cholesterol in HDL [Mass/Vol] 41 mg/dL 39 - PINF mg/dL [facility] Comment on above: HDL <40 mg/dL - High Risk HDL > or = 40mg/dL- Desirable HDL >60 mg/dL - Negative Risk Cholesterol in HDL [Mass/Vol] 3.7 mg/dL 1.0 - 5.[address] [facility] Cholesterol in LDL [Mass/Vol] 95 mg/dL NINF - 130 mg/dL [facility] Comment on above: LDL <100 mg/dL - Carlos A irable LDL >160 mg/dL - High Risk Cholesterol in VLDL [Mass/Vol] 14 mg/dL 0 - 30 mg/dL [facility] Interpretation and review of laboratory results Normal [facility] Triglyceride [Mass/Vol] 70 mg/dL 27 - 150 mg/dL [facility] MR Brain WO contraston 06-18 [...] Ray Vaughn MD on 06/18/2025 9:50 AM [facility] Ray Vaughn MD - 06/18/2025 HISTORY: [...] Ray Vaughn MD on 06/18/2025 9:[address] [facility] Radiology Study observation (narrative) [facility] MR Brain WO contrastOrdered By: Ray Vaughn on 06-18-2025 [facility] Work Phone: Magnesiumon 06-18-2025 Interpretation and review of laboratory results Abnormal [facility] Magnesium [Mass/Vol] 1.6 mg/dL Low 1.8 - 2 .6 mg/dL [facility] No Panel Informationon 06-18 Interpretation and review of laboratory results Normal [facility] OsmolalityOrdered By: Elisa erickson on 06-18-2025 Interpretation and review of laboratory results Abnormal [facility] Osmolality [Osmolality] 261 mosm/kg Low [facility] PST TOPon 06-18-2025 Extra Tube Auto Resulted [facility] Platelet counton 06-18-2025 Platelet mean volume (Bld) [Entitic vol] 8.7 fL 7 - 12 fL [facility] Platelets (Bld) [#/Vol] 214 10*3/uL [facility] Protime & INRon 06-18-2025 INR Coag (Platelet poor plasma or blood) [Relative time] 1.1 0.9 - 1.[address] [facility] Interpretation and review of laboratory results Normal [facility] PT Coag (PPP) [Time] [address] [facility] INR Coag (Platelet poor plasma or blood) [Relative time] 1.1 0.9 - 1.[address] [facility] Interpretation and review of laboratory results Normal [facility] PT Coag (PPP) [Time] [address] [facility] Bedside Glucose *Place/Obtai n serum glucose if >500 per glucometer.on 06-17-2025 Glucose [Mass/Vol] 111 mg/dL High 65 - 99 mg/dL [facility] Interpretation and review of laboratory results Abnormal [facility] CBC auto differentialon Basophils (Bld) [#/Vol] 0.1 10*3/uL 0.0 - 0.2 10*3/uL [facility] Basophils/100 WBC (Bld) 1.5 % [facility] Differential cell count method Nom (Bld) AUTOMATED DIFFERENTIAL [facility] Eosinophils (Bld) [#/Vol] 0.1 10*3/uL 0.0 - 0.4 10*3/uL [facility] Eosinophils/100 WBC (Bld) 3 % [facility] Erythrocyte distribution width (RBC) [Ratio] 13.8 % 11.5 - 15 % [facility] Hematocrit (Bld) [Volume fraction] 37.3 % Low 39 - 50 % [facility] Hemoglobin (Bld) [Mass/Vol] 13 g/dL 13 - 17 g/dL [facility] Interpretation and review of laboratory results Abnormal [facility] Lymphocytes (Bld) [#/Vol] 1.3 10*3/uL 1.0 - 3.5 10*3/uL [facility] Lymphocytes/100 WBC (Bld) 27.2 % [facility] MCH (RBC) [Entitic mass] 31.2 pg 27 - [address] [facility] MCHC (RBC) [Mass/Vol] 34.8 g/dL 32 - 3 6 g/dL [facility] MCV (RBC) [Entitic vol] 90 fL 80 - [address] [facility] Monocytes (Bld) [#/Vol] 0.5 10*3/uL 0.0 - 0.9 10*3/uL [facility] Monocytes/100 WBC (Bld) 10.1 % [facility] Neutrophils (Bld) [#/Vol] 2.8 10*3/uL 1.5 - 6.6 10*3/uL [facility] Neutrophils/100 WBC (Bld) 58.2 % [facility] Platelet mean volume (Bld) [Entitic vol] 9.4 fL 7 - 12 fL [facility] Platelets (Bld) [#/Vol] 193 10*3/uL [facility] RBC (Bld) [#/Vol] 4.17 10*6/uL [facility] WBC LM Ql (Sput) 4.8 [facility] [...] Nico Dempsey MD on 06/17/2025 5:[address] [facility] Radiology Study observation (narrative) [facility] CT perfusion HeadOrdered By: Nico Dempsey on 06-17-2025 [facility] [employer] Work Phone: Comprehensive metabolic pane patricio 06-17-2025 Albumin [Mass/Vol] 3.9 g/dL 3.2 - 5.3 g/dL [facility] ALP [Catalytic activity/Vol] 81 U/L 39 - 130 U/L [facility] ALT No additional P-5'-P [Catalytic activity/Vol] 11 U/L NINF - 40 U/L [facility] Anion gap [Moles/Vol] 8 mmol/L 5 - 15 mmol/L [facility] AST [Catalytic activity/Vol] 20 U/L NINF - 41 U/L [facility] Bilirubin [Mass/Vol] 1.1 mg/dL 0.3 - 1 .2 mg/dL [facility] Calcium [Mass/Vol] 9.2 mg/dL 8.5 - 10. 5 mg/dL [facility] Chloride [Moles/Vol] 93 mmol/L Low 98 - 10 9 mmol/L [facility] CO2 [Moles/Vol] 26 mmol/L 22 - 32 mmol/L [facility] Creatinine [Mass/Vol] 0.75 mg/dL 0.60 - 1.30 mg/dL [facility] Comment on above: METHOD TRACEABLE TO IDMN STANDARD EGFR Non-Race Dependent 90 - PINF [facility] Comment on above: Reported eGFR is bas ed on the CKD-EPI 2020 equation that does not use a race coefficient. Glucose [Mass/Vol] 94 mg/dL 65 - 99 mg/dL [facility] Potassium [Moles/Vol] 4.5 mmol/L 3.5 - 5.0 mmol/L [facility] Protein [Mass/Vol] 6.5 g/dL 6.0 - 8.0 g/dL [facility] Sodium [Moles/Vol] 127 mmol/L Low 134 - 146 mmol/L [facility] Urea nitrogen [Mass/Vol] 10 mg/dL 5 - 27 mg/dL [facility] Magnesiumon 06-17-2025 Magnesium [Mass/Vol] 1.7 mg/dL Low 1.8 - 2 .6 mg/dL [facility] No Panel Informationon 06-17 Interpretation and review of laboratory results Abnormal [facility] Phosphoruson 06-17-2025 Interpretation and review of laboratory results Normal [facility] Phosphate [Mass/Vol] 3.3 mg/dL 2.4 - 4 .9 mg/dL [facility] Population Healthon 06-14-20 25 Population [facility] Population Health Case Information Case Priority: None Programs: -- Referral Source: Copyholder Referral Reason: Care coordination Case Type: Transition [...] Care Plan Progress Note Admit Date: 06/12/25 [facility] Discharge Date: 06/13/25 Follow-up appointment scheduled? yes, TCM with [facility]PP[facility] 06/19/25 at 1340 Did you understand your discharge instructions? yes Are you able to follow them? yes Did you receive new medications? yes, ASA 81 mg QD. stop; lisinopril, meloxicam Have you filled the Rx's? per spouse, going this morning to [facility], states it was late last night when [...] following appointmen (more content not included)... Normal [facility] CMPon 06-07-2025 Albumin [Mass/Vol] 4.1 g/dL Normal 3.3-5.0 [facility] Comment on above: Performed By: #### 2 [id number] #### [facility] [address] [place] [address] Albumin/Globulin [Mass ratio] 1.6 {ratio} Normal 1.1-2.2 [facility] Comment on above: Performed By: #### 2 [id number] #### [facility] [address] [place] [address] Alk Phos 86 Int._Unit/L Normal 21-98 [facility] Comment on above: Performed By: #### 2 [id number] #### [facility] [address] [place] [address] ALT 12 Int._Unit/L Normal 6-46 [facility] Comment on above: Performed By: #### 2 [id number] #### [facility] [address] [place] [address] Anion gap [Moles/Vol] 9 mmol/L Normal 6-16 [facility] Comment on above: Performed By: #### 2 [id number] #### [facility] [address] [place] [address] AST 24 Int._Unit/L Normal 5-43 [facility] Comment on above: Performed By: #### 2 [id number] #### [facility] [address] [place] [address] Bili Total 1.0 mg/dL Normal 0.0-1.1 [facility] Comment on above: Performed By: #### 2 [id number] #### [facility] [address] [place] [address] BUN/Creat Ratio 26 No Units High 10-20 [facility] Comment on above: Performed By: #### 2 829291 #### [facility] [address] [place] [address] Calcium [Mass/Vol] 9.8 mg/dL Normal 8.9-11.1 [facility] Comment on above: Performed By: #### 2 [id number] #### [facility] [address] [place] [address] Chloride [Moles/Vol] 95 mmol/L Low 101-111 [facility] Comment on above: Performed By: #### 2 [id number] #### [facility] [address] [place] [address] CO2 [Moles/Vol] 27 mmol/L Normal 21-31 [facility] Comment on above: Performed By: #### 2 164765 #### [facility] [address] [place] [address] Creatinine [Mass/Vol] 1.1 mg/dL Normal 0.5-1.3 [facility] Comment on above: Performed By: #### 2 948190 #### [facility] [address] [place] [address] Globulin (S) [Mass/Vol] 2.6 g/dL Normal 1.4-4.0 [facility] Comment on above: Performed By: #### 2 517263 #### [facility] [address] [place] [address] Glucose [Mass/Vol] 190 mg/dL Normal 55-199 [facility] Comment on above: Performed By: #### 2 131185 #### [facility] [address] [place] [address] Potassium [Moles/Vol] 4.2 mmol/L Normal 3.5-5.3 [facility] Comment on above: Performed By: #### 2 819159 #### [facility] [address] [place] [address] Protein [Mass/Vol] 6.7 g/dL Normal 6.0-7.8 [facility] Comment on above: Performed By: #### 2 240320 #### [facility] [address] [place] [address] Sodium [Moles/Vol] 127 mmol/L Low 135-145 [facility] Comment on above: Performed By: #### 2 633197 #### [facility] [address] [place] [address] Urea nitrogen [Mass/Vol] 29 mg/dL High 5-21 [facility] Comment on above: Performed By: #### 2 [id number] #### [facility] [address] [place] [address] Family Medicine Office/Clini c Noteon 06-07-2025 Family Medicine Office/Clinic Note Family Medicine Office/Clinic Note Chief Complaint Discuss Medications The patient presents for a follow-up after hospitalization due to a nasal fracture. HPI Staff Former Dr Adam lazaro. Pt presents today to follow up to hospitalization in [place]. Fell and hit his nose. Went to [facility] ER due to excessive bleeding. They packed it and DC'd pt. Upon arrival home, nose started bleeding again. Pt went back to ER, [place]. He was then transferred to [facility] in [place] where they admitted him for 3-4days. Sodium was dc'd. And pt was started on Lisinopril & Keflex & Ure-NA History of Present Illness 85-year-old male presents with his following a recent hospital stay for a nasal fracture. The incident occurred when the patient fell while attempting to lacey his stomach, resulting in a nasal fracture and subsequent bleeding. He was initially treated at [facility] with nasal packing and later transferred to [facility] for further management. During hospitalization, the patient [...] Hypo-osmolality and hyponatremia) - Reviewed documents from [facility] & [facility] in [place] - Sodium level on discharge 127 - Awaiting laboratory results - f/u in one week Ordered: Non-Formulary Medication, Ure-Na, See Instructions, 15 packet(s), 0, Natural Lemon [place] flavor, [id number], Supply, 178.6, cm, 06/07/25 [...] See Instructions, 15 packet(s), 0, Natural Lemon [place] flavor, [id number], Supply, 178.6, cm, 06/07/25 10:56:00 EDT, Height/Length Dosing, 74.3, kg, 06/07/25 10:56:00 EDT, Weight Dosing 4. Nonsmoker (Z78.9: Other specified health status) Encouraged to continue as a non-smoker Ordered: Non-Formulary Medication, Ure-Na, See Instructions, 15 packet(s), 0, Natural Lemon [place] flavor, [id number], Supply, 178.6, cm, 06/07/25 10:56:00 EDT, Height/Length Dosing, 74.3, kg, 06/07/25 10:56:00 EDT, Weight Dosing total time spent preparing the chart, conducting of the encounter with the patient and family and time spent documenting, reviewing, and ordering tests was 40 minutes. Follow-up With When Contact Information YANIQUE MCNEILL CNP, FAM In 6 days 06/13/2025 EDT [address] [place] [address] Business (1) Additional Instructions: Patient Education Hyponatremia, Sqyi-zs-Shia Problem List/Past Medical History Ongoing ASCVD (arteriosclerotic cardiovascular disease) Back spasm BMI 23.0-23.9, adult BMI 25.0-25.9,adult Carpal tunnel syndrome, left DM type 2 causing vascular disease Encounter for surveillance of abnormal nevi Erectile dysfunction due to arterial insufficiency Hard of hearing Hyperlipidemia Hyponatremia Hypothyroid Longstanding persistent atrial fibrillation Non (more content not included)... Normal [facility] Comment on above: Result Comment: Elec tronically Signed By: YANIQUE MCNEILL CNP\.br\Date and Time Signed: 06/07/25 14:35 EDT eGFRon 06-07-2025 eGFR 67 mL/min/1.73 m2 Normal >=59 [facility] Comment on above: Performed By: #### 1 [id number] #### [facility] [address] [place] [address] Basic Metabolic Panelon 05-15 Anion gap [Moles/Vol] 12 mmol/L 9 - 16 mmol/L [facility] Calcium [Mass/Vol] 9.2 mg/dL 8.6 - 10. 4 mg/dL [facility] Chloride [Moles/Vol] 95 mmol/L Low 98 - 10 7 mmol/L [facility] CO2 [Moles/Vol] 19 mmol/L Low 20 - 31 mmol/L [facility] Creatinine [Mass/Vol] 0.8 mg/dL 0.7 - 1.2 mg/dL [facility] Jesu Appiaht Rate 88 - PINF [facility] Comment on above: These results are [...] 112 mg/dL High 74 - 99 mg/dL [facility] Interpretation and review of laboratory results Abnormal [facility] Potassium [Moles/Vol] 4.5 mmol/L 3.7 - 5.3 mmol/L [facility] Comment on above: Specimen hemolysis h as exceeded the interference as defined by Sindy. Value may be falsely increased. Suggest recollection if clinically indicated. Sodium [Moles/Vol] 126 mmol/L Low 136 - 145 mmol/L [facility] Urea nitrogen [Mass/Vol] 13 mg/dL 8 - 23 mg/dL [facility] Basic Metabolic Profon 06-05 Anion gap [Moles/Vol] 12 mmol/L Normal 9-16 [facility] Comment on above: Performed By: #### P T, BMP #### [facility] [address] [place], [place] [id number] Excellence Leader: Pankaj Cordoba MD Calcium [Mass/Vol] 9.2 mg/dL Normal 8.6-10.4 [facility] Comment on above: Performed By: #### P T, BMP #### [facility] [address] [place], [place] [id number] Excellence Leader: Pankaj Cordoba MD Chloride [Moles/Vol] 95 mmol/L Low 98-107 [facility] Comment on above: Performed By: #### P T, BMP #### [address] [address] Excellence Leader: Pankaj Cordoba MD CO2 [Moles/Vol] 19 mmol/L Low 20-31 [facility] Comment on above: Performed By: #### P T, BMP #### [address] [address] Excellence Leader: Pankaj Cordoba MD Creatinine [Mass/Vol] 0.8 mg/dL Normal 0.7-1.2 [facility] Comment on above: Performed By: #### P T, BMP #### [address] [address] Excellence Leader: Pankaj Cordoba MD GFR/1.73 sq M.predicted among non-blacks MDRD (S/P/Bld) [Vol rate/Area] 88 mL/min/{1.73_m2} Normal >60 [facility] Comment on above: Result Comment: These [...] Performed By: #### P T, BMP #### [address] [address] Excellence Leader: Pankaj Cordoba MD Glucose [Mass/Vol] 112 mg/dL High 74-99 [facility] Comment on above: Performed By: #### P T, BMP #### [address] [address] Excellence Leader: Pankaj Cordoba MD Potassium [Moles/Vol] 4.5 mmol/L Normal 3.7-5.3 [facility] Comment on above: Result Comment: Spec imen hemolysis has exceeded the interference as defined by Sindy. Value may be falsely increased. Suggest recollection if clinically indicated. Performed By: #### P T, BMP #### [facility] [address] [place] [address] Excellence Leader: Pankaj Cordoba MD Sodium [Moles/Vol] 126 mmol/L Low 136-145 [facility] Comment on above: Performed By: #### P T, BMP #### [facility] [address] [place] [address] Excellence Leader: Pankaj Cordoba MD Urea nitrogen [Mass/Vol] 13 mg/dL Normal - [facility] Comment on above: Performed By: #### P T, BMP #### [facility] [address] [place], [place] [phone] Excellence Leader: Pankaj Cordoba MD Electrolyte Panelon 06-05-20 Anion gap [Moles/Vol] 16 mmol/L 9 - 16 mmol/L [facility] Chloride [Moles/Vol] 92 mmol/L Low 98 - 10 7 mmol/L [facility] CO2 [Moles/Vol] 19 mmol/L Low 20 - 31 mmol/L [facility] Interpretation and review of laboratory results Abnormal [facility] Potassium [Moles/Vol] 4.4 mmol/L 3.7 - 5.3 mmol/L [facility] Comment on above: Specimen hemolysis h as exceeded the interference as defined by Sindy. Value may be falsely increased. Suggest recollection if clinically indicated. Sodium [Moles/Vol] 127 mmol/L Low 136 - 145 mmol/L [facility] Electrolyteson 06-05-2025 Anion gap [Moles/Vol] 16 mmol/L Normal 9-16 [facility] Comment on above: Performed By: #### L YTE ####[facility] [address] [place] [address] Lab Director: Pankaj Cordoba MD Chloride [Moles/Vol] 92 mmol/L Low 98-107 [facility] Comment on above: Performed By: #### L YTE ####[facility] [address] [place] [address] Lab Director: Pankaj Cordoba MD CO2 [Moles/Vol] 19 mmol/L Low 20-31 [facility] Comment on above: Performed By: #### L YTE ####[facility] [address] [place] [address] lab Director: Pankaj Cordoba MD Potassium [Moles/Vol] 4.4 mmol/L Normal 3.7-5.3 [facility] Comment on above: Result Comment: Spec imen hemolysis has exceeded the interference as defined by Sindy. Value may be falsely increased. Suggest recollection if clinically indicated. Performed By: #### L YTE ####[facility] [address] [place] [address] Lab Director: Pankaj Cordoba MD Sodium [Moles/Vol] 127 mmol/L Low 136-145 [facility] Comment on above: Performed By: #### L YTE ####[facility] [address] [place] [address] lab Director: Pankaj Cordoba MD Glucose,Whole Bloodon 2024 Glucose [Mass/Vol] 145 mg/dL High 75-110 [facility] Glucose [Mass/Vol] 108 mg/dL Normal 75-110 [facility] POC Glucose Fingerstickon Glucose [Mass/Vol] 145 mg/dL High 75 - 110 mg/dL [facility] Interpretation and review of laboratory results Abnormal [facility] Glucose [Mass/Vol] 108 mg/dL 75 - 110 mg/dL [facility] PTon 06-05-2025 INR Coag (PPP) [Relative time] 1.9 {INR} Normal [facility] Comment on above: Result Comment: Therapeutic Range: Moderate Anticoagulant Intensity: INR = 2.0-3.0 High Anticoagulant Intensity: INR = 2.5-3.5 Performed By: #### P T, BMP #### [facility] [address] [place] [address] Excellence Leader: Pankaj Cordoba MD PT Coag (PPP) [Time] 22.4 s High 11.7-14.9 [facility] Comment on above: Performed By: #### P T, BMP #### [facility] [address] [place], [place] [id number] Excellence Leader: Pankaj Cordoba MD Protime-INRon 06-05-2025 INR Coag (PPP) [Relative time] 1.9 {INR} [facility] Comment on above: Therapeutic Range: Moderate Anticoagulant Intensity: INR = 2.0-3.0 High Anticoagulant Intensity: INR = 2.5-3.5 Interpretation and review of laboratory results Abnormal [facility] [employer] PT Coag (PPP) [Time] 22.4 s High [facility] Arterial Bld Gas,POCon 06-04 HCO3 (Bld) [Moles/Vol] 24.6 mmol/L Normal 21.0-28.0 [facility] O2 Device Room Air Normal [facility] Oxygen saturation in Blood 97.2 % Normal 94.0-98.0 [facility] pCO2, Arterial 38.6 mm Hg Normal 35.0-48.0 [facility] pH, Arterial 7.412 Normal 7.350-7.450 [facility] pO2, Arterial 91.7 mm Hg Normal 83.0-108.0 [facility] Positive Base Excess (calc) 0.1 mmol/L Normal 0.0-3.0 [facility] Site Drawn Right Radial Artery Normal [facility] Arterial Blood Gas, POCon HCO3 (Bld) [Moles/Vol] 24.6 mmol/L 21.0 - 28.0 mmol/L [facility] O2 Delivery Device Room Air [facility] Oxygen saturation in Blood 97.2 % 94.0 - 98.0 % [facility] POC pCO2 38.6 [facility] POC pH 7.412 7.350 - 7.450 [facility] POC PO2 91.7 [facility] Positive Base Excess, Art 0.1 mmol/L 0.0 - 3.0 mmol/L [facility] Sample Site Right Radial Artery [facility] BUN, POCon 06-04-2025 Urea nitrogen [Mass/Vol] 11 mg/dL Normal 8-26 [facility] Basic Metab w/rfx MGon 06-04 Anion gap [Moles/Vol] 10 mmol/L Normal 9-16 [facility] Comment on above: Performed By: #### B MPX ####[facility] [address] [place] [address] Lab Director: Pankaj Cordoba MD Calcium [Mass/Vol] 8.6 mg/dL Normal 8.6-10.4 [facility] Comment on above: Performed By: #### B MPX ####[facility] [address] [place] [address] Lab Director: Pankaj Cordoba MD Chloride [Moles/Vol] 87 mmol/L Low 98-107 [facility] Comment on above: Performed By: #### B MPX ####[facility] [address] [place] [address] Lab Director: Pankaj Cordoba MD CO2 [Moles/Vol] 21 mmol/L Normal 20-31 [facility] Comment on above: Performed By: #### B MPX ####[facility] [address] [place] [address] Lab Director: Pankaj Cordoba MD Creatinine [Mass/Vol] 0.7 mg/dL Normal 0.7-1.2 [facility] Comment on above: Performed By: #### B MPX ####[facility] [address] [place] [address] Lab Director: Pankaj Cordoba MD GFR/1.73 sq M.predicted among non-blacks MDRD (S/P/Bld) [Vol rate/Area] mL/min/{1.73_m2} Normal >60 [facility] Comment on above: Result Comment: These [...] tubular secretion. Performed By: #### B MPX ####[address] [address] Lab Director: Pankaj Cordoba MD Glucose [Mass/Vol] 107 mg/dL High 74-99 [facility] Comment on above: Performed By: #### B MPX ####[address] [address] Lab Director: Pankaj Cordoba MD Potassium [Moles/Vol] 4.8 mmol/L Normal 3.7-5.3 [facility] Comment on above: Result Comment: Spec imen hemolysis has exceeded the interference as defined by Sindy. Value may be falsely increased. Suggest recollection if clinically indicated. Performed By: #### B MPX ####[facility] [address] [place] [address] Lab Director: Pankaj Cordoba MD Sodium [Moles/Vol] 118 mmol/L Critically low 136-145 [facility] Comment on above: Performed By: #### B MPX ####[facility] [address] [place] [address] Lab Director: Pankaj Cordoba MD Urea nitrogen [Mass/Vol] 11 mg/dL Normal 8-23 [facility] Comment on above: Performed By: #### B MPX ####[address] [address] Lab Director: Pankaj Cordoba MD Anion gap [Moles/Vol] 12 mmol/L Normal 9-16 [facility] Comment on above: Performed By: #### B MPX #### [address] [address] Excellence Leader: Pankaj Cordoba MD Calcium [Mass/Vol] 8.8 mg/dL Normal 8.6-10.4 [facility] Comment on above: Performed By: #### B MPX #### [address] [address] Excellence Leader: Pankaj Cordoba MD Chloride [Moles/Vol] 88 mmol/L Low 98-107 [facility] Comment on above: Performed By: #### B MPX #### [address] [address] Excellence Leader: Pankaj Cordoba MD CO2 [Moles/Vol] 19 mmol/L Low 20-31 [facility] Comment on above: Performed By: #### B MPX #### [address] [address] Excellence Leader: Pankaj Cordoba MD Creatinine [Mass/Vol] 0.6 mg/dL Low 0.7-1.2 [facility] Comment on above: Performed By: #### B MPX #### [address] [address] Excellence Leader: Pankaj Cordoba MD GFR/1.73 sq M.predicted among non-blacks MDRD (S/P/Bld) [Vol rate/Area] mL/min/{1.73_m2} Normal >60 [facility] Comment on above: Result Comment: These [...] secretion. Performed By: #### B MPX #### [address] [address] Excellence Leader: Pankaj Cordoba MD Glucose [Mass/Vol] 86 mg/dL Normal 74-99 [facility] Comment on above: Performed By: #### B MPX #### [address] [address] Excellence Leader: Pankaj Cordoba MD Potassium [Moles/Vol] 4.6 mmol/L Normal 3.7-5.3 [facility] Comment on above: Result Comment: Spec imen hemolysis has exceeded the interference as defined by Sindy. Value may be falsely increased. Suggest recollection if clinically indicated. Performed By: #### B MPX #### [address] [address] Excellence Leader: Pankaj Cordoba MD Sodium [Moles/Vol] 119 mmol/L Critically low 136-145 [facility] Comment on above: Performed By: #### B MPX #### [address] [address] Excellence Leader: Pankaj Cordoba MD Urea nitrogen [Mass/Vol] 11 mg/dL Normal 8-23 [facility] Comment on above: Performed By: #### B MPX #### [address] [address] Excellence Leader: Pankaj Cordoba MD Anion gap [Moles/Vol] 12 mmol/L Normal 9-16 [facility] Comment on above: Performed By: #### B MPX ####[address] [address] Lab Director: Pankaj Cordoba MD Calcium [Mass/Vol] 8.7 mg/dL Normal 8.6-10.4 [facility] Comment on above: Performed By: #### B MPX ####[address] [phone] Director: Pankaj Cordoba MD Chloride [Moles/Vol] 88 mmol/L Low 98-107 [facility] Comment on above: Performed By: #### B MPX ####[address] [phone] Director: Pankaj Cordoba MD CO2 [Moles/Vol] 19 mmol/L Low 20-31 [facility] Comment on above: Performed By: #### B MPX ####[address] [phone] Director: Pankaj Cordoba MD Creatinine [Mass/Vol] 0.6 mg/dL Low 0.7-1.2 [facility] Comment on above: Performed By: #### B MPX ####[address] [phone] Director: Pankaj Cordoba MD GFR/1.73 sq M.predicted among non-blacks MDRD (S/P/Bld) [Vol rate/Area] mL/min/{1.73_m2} Normal >60 [facility] Comment on above: Result Comment: These [...] tubular secretion. Performed By: #### B MPX ####[address] [phone] Director: Pankaj Cordoba MD Glucose [Mass/Vol] 81 mg/dL Normal 74-99 [facility] Comment on above: Performed By: #### B MPX ####[facility] [address] [place], [place] [phone] Director: Pankaj Cordoba MD Potassium [Moles/Vol] 4.1 mmol/L Normal 3.7-5.3 [facility] Comment on above: Result Comment: Spec imen hemolysis has exceeded the interference as defined by Sindy. Value may be falsely increased. Suggest recollection if clinically indicated. Performed By: #### B MPX ####[facility] [address] [place] [address] [phone] Director: Pankaj Cordoba MD Sodium [Moles/Vol] 119 mmol/L Critically low 136-145 [facility] Comment on above: Performed By: #### B MPX ####[address] [phone] Director: Pankaj Cordoba MD Urea nitrogen [Mass/Vol] 11 mg/dL Normal 8-23 [facility] Comment on above: Performed By: #### B MPX ####[address] [phone] Director: Pankaj Cordoba MD Anion gap [Moles/Vol] 11 mmol/L Normal 9-16 [facility] Comment on above: Performed By: #### O SMO #### [facility] [place] [address] Excellence Leader: Pankaj Cordoba MD Calcium [Mass/Vol] 9.0 mg/dL Normal 8.6-10.4 [facility] Comment on above: Performed By: #### O SMO #### [address] [address] Excellence Leader: Pankaj Cordoba MD Chloride [Moles/Vol] 88 mmol/L Low 98-107 [facility] Comment on above: Performed By: #### O SMO #### [facility] [address] [place] [address] Excellence Leader: Pankaj Cordoba MD CO2 [Moles/Vol] 21 mmol/L Normal 20-31 [facility] Comment on above: Performed By: #### O SMO #### [address] [address] Excellence Leader: Pankaj Cordoba MD Creatinine [Mass/Vol] 0.6 mg/dL Low 0.7-1.2 [facility] Comment on above: Performed By: #### O SMO #### [address] [address] Excellence Leader: Pankaj Cordoba MD GFR/1.73 sq M.predicted among non-blacks MDRD (S/P/Bld) [Vol rate/Area] mL/min/{1.73_m2} Normal >60 [facility] Comment on above: Result Comment: These [...] secretion. Performed By: #### O SMO #### [address] [address] Excellence Leader: Pankaj Cordoba MD Glucose [Mass/Vol] 75 mg/dL Normal 74-99 [facility] Comment on above: Performed By: #### O SMO #### [address] [address] Excellence Leader: Pankaj Cordoba MD Potassium [Moles/Vol] 4.3 mmol/L Normal 3.7-5.3 [facility] Comment on above: Performed By: #### O SMO #### [facility] [address] [place] [address] Excellence Leader: Pankaj Cordoba MD Sodium [Moles/Vol] 120 mmol/L Low 136-145 [facility] Comment on above: Performed By: #### O SMO #### [address] [address] Excellence Leader: Pankaj Cordoba MD Urea nitrogen [Mass/Vol] 11 mg/dL Normal 8-23 [facility] Comment on above: Performed By: #### O SMO #### [address] [address] Excellence Leader: Pankaj Cordoba MD Anion gap [Moles/Vol] 14 mmol/L Normal 9-16 [facility] Comment on above: Performed By: #### B MPX ####[address] [phone] Director: Pankaj Cordoba MD Calcium [Mass/Vol] 8.5 mg/dL Low 8.6-10.4 [facility] Comment on above: Performed By: #### B MPX ####[facility] [place], [place] [phone] Director: Pankaj Cordoba MD Chloride [Moles/Vol] 89 mmol/L Low 98-107 [facility] Comment on above: Performed By: #### B MPX ####[facility] [address] [place], [place] [phone] Director: Pankaj Cordoba MD CO2 [Moles/Vol] 17 mmol/L Low 20-31 [facility] Comment on above: Performed By: #### B MPX ####[facility] [address] [place], [place] [phone] Director: Pankaj Cordoba MD Creatinine [Mass/Vol] 0.6 mg/dL Low 0.7-1.2 [facility] Center Comment on above: Performed By: #### B MPX ####[place] [address] Lab Director: Pankaj Cordoba MD GFR/1.73 sq M.predicted among non-blacks MDRD (S/P/Bld) [Vol rate/Area] mL/min/{1.73_m2} Normal >60 [facility] Comment on above: Result Comment: These [...] tubular secretion. Performed By: #### B MPX ####[place], [place] [address])[phone] Director: Pankaj Cordoba MD Glucose [Mass/Vol] 76 mg/dL Normal 74-99 [facility] Comment on above: Performed By: #### B MPX ####[place] [address] lab Director: aPnkaj Cordoba MD Potassium [Moles/Vol] 4.4 mmol/L Normal 3.7-5.3 [facility] Comment on above: Result Comment: Spec imen hemolysis has exceeded the interference as defined by Sindy. Value may be falsely increased. Suggest recollection if clinically indicated. Performed By: #### B MPX ####[facility] [address] [place] [address] Lab Director: Pankaj Cordoba MD Sodium [Moles/Vol] 120 mmol/L Low 136-145 [facility] Comment on above: Performed By: #### B MPX ####[place] [address] Lab Director: Pankaj Cordoba MD Urea nitrogen [Mass/Vol] 11 mg/dL Normal 8-23 [facility] Comment on above: Performed By: #### B MPX ####[facility] [address] [place], [place] [phone] Director: Pankaj Cordoba MD Anion gap [Moles/Vol] 15 mmol/L Normal 9-16 [facility] Comment on above: Performed By: #### B MPX ####[facility] [address] [place], [place] [address])[phone] Director: Pankaj Cordoba MD Calcium [Mass/Vol] 8.6 mg/dL Normal 8.6-10.4 [facility] Comment on above: Performed By: #### B MPX ####[facility] [address] [place] [address])[phone] Director: Pankaj Cordoba MD Chloride [Moles/Vol] 86 mmol/L Low 98-107 [facility] Comment on above: Performed By: #### B MPX ####[facility] [address] [place], [place] [address])[phone] Director: Pankaj Cordoba MD CO2 [Moles/Vol] 16 mmol/L Low 20-31 [facility] Comment on above: Performed By: #### B MPX ####[facility] [address] [place], [place] [address])[phone] Director: Pankaj Cordoba MD Creatinine [Mass/Vol] 0.7 mg/dL Normal 0.7-1.2 [facility] Comment on above: Performed By: #### B MPX ####[facility] [address] [place] [address])[phone] Director: Pankaj Cordoba MD GFR/1.73 sq M.predicted among non-blacks MDRD (S/P/Bld) [Vol rate/Area] mL/min/{1.73_m2} Normal >60 [facility] Comment on above: Result Comment: These [...] tubular secretion. Performed By: #### B MPX ####[facility] [address] [place], [place] [phone] Director: Pankaj Cordoba MD Glucose [Mass/Vol] 90 mg/dL Normal 74-99 [facility] Comment on above: Performed By: #### B MPX ####[address] [phone] Director: Pankaj Cordoba MD Potassium [Moles/Vol] 4.1 mmol/L Normal 3.7-5.3 [facility] Comment on above: Result Comment: Spec imen hemolysis has exceeded the interference as defined by Sindy. Value may be falsely increased. Suggest recollection if clinically indicated. Performed By: #### B MPX ####[facility] [address] [place] [address] [phone] Director: Pankaj Cordoba MD Sodium [Moles/Vol] 117 mmol/L Critically low 136-145 [facility] Comment on above: Performed By: #### B MPX ####[facility] [address] [place] [address] [phone] Director: Pankaj Cordoba MD Urea nitrogen [Mass/Vol] 12 mg/dL Normal 8-23 [facility] Comment on above: Performed By: #### B MPX ####[address] [place] [address] Lab Director: Pankaj Cordoba MD Basic Metabolic Panel w/ Ref maura to MGon 07-22-2025 Anion gap [Moles/Vol] 10 mmol/L 9 - 16 mmol/L [facility] Calcium [Mass/Vol] 8.6 mg/dL 8.6 - 10. 4 mg/dL [facility] Chloride [Moles/Vol] 87 mmol/L Low 98 - 10 7 mmol/L [facility] CO2 [Moles/Vol] 21 mmol/L 20 - 31 mmol/L [facility] Creatinine [Mass/Vol] 0.7 mg/dL 0.7 - 1.2 mg/dL [facility] EstJesu Rate - PINF [facility] Comment on above: These results are [...] 107 mg/dL High 74 - 99 mg/dL [facility] Interpretation and review of laboratory results Abnormal [facility] Potassium [Moles/Vol] 4.8 mmol/L 3.7 - 5.3 mmol/L [facility] Comment on above: Specimen hemolysis h as exceeded the interference as defined by Sindy. Value may be falsely increased. Suggest recollection if clinically indicated. Sodium [Moles/Vol] 118 mmol/L Critically low 136 - 1 45 mmol/L [facility] Urea nitrogen [Mass/Vol] 11 mg/dL 8 - 23 mg/dL [facility] Anion gap [Moles/Vol] 12 mmol/L 9 - 16 mmol/L [facility] Calcium [Mass/Vol] 8.8 mg/dL 8.6 - 10. 4 mg/dL [facility] Chloride [Moles/Vol] 88 mmol/L Low 98 - 10 7 mmol/L [facility] CO2 [Moles/Vol] 19 mmol/L Low 20 - 31 mmol/L [facility] Creatinine [Mass/Vol] 0.6 mg/dL Low 0.7 - 1.2 mg/dL [facility] [employer] Est, Glom Robertot Rate - PINF [facility] [place] [employer] [facility] Comment on above: These results are not [...] [Mass/Vol] 86 mg/dL 74 - 99 mg/dL [facility] Interpretation and review of laboratory results Abnormal [facility] Potassium [Moles/Vol] 4.6 mmol/L 3.7 - 5.3 mmol/L [facility] [employer] Comment on above: Specimen hemolysis h as exceeded the interference as defined by Sindy. Value may be falsely increased. Suggest recollection if clinically indicated. Sodium [Moles/Vol] 119 mmol/L Critically low 136 - 1 45 mmol/L [facility] Urea nitrogen [Mass/Vol] 11 mg/dL 8 - 23 mg/dL [facility] Anion gap [Moles/Vol] 12 mmol/L 9 - 16 mmol/L [facility] Calcium [Mass/Vol] 8.7 mg/dL 8.6 - 10. 4 mg/dL [facility] Chloride [Moles/Vol] 88 mmol/L Low 98 - 10 7 mmol/L [facility] CO2 [Moles/Vol] 19 mmol/L Low 20 - 31 mmol/L [facility] Creatinine [Mass/Vol] 0.6 mg/dL Low 0.7 - 1.2 mg/dL [facility] HospitalSoothEaseHen[facility] Est, Glom Robertot Rate - [facility] [place] [employer] [facility] Comment on above: These results are not [...] [Mass/Vol] 81 mg/dL 74 - 99 mg/dL [facility] Interpretation and review of laboratory results Abnormal [facility] Potassium [Moles/Vol] 4.1 mmol/L 3.7 - 5.3 mmol/L [facility] Comment on above: Specimen hemolysis h as exceeded the interference as defined by Sindy. Value may be falsely increased. Suggest recollection if clinically indicated. Sodium [Moles/Vol] 119 mmol/L Critically low 136 - 1 45 mmol/L [facility] Urea nitrogen [Mass/Vol] 11 mg/dL 8 - 23 mg/dL [facility] Anion gap [Moles/Vol] 11 mmol/L 9 - 16 mmol/L [facility] Calcium [Mass/Vol] 9 mg/dL 8.6 - 10. 4 mg/dL [facility] Chloride [Moles/Vol] 88 mmol/L Low 98 - 10 7 mmol/L [facility] CO2 [Moles/Vol] 21 mmol/L 20 - 31 mmol/L [facility] Creatinine [Mass/Vol] 0.6 mg/dL Low 0.7 - 1.2 mg/dL [facility] Est, Glom Filt Rate - PINF [facility] Comment on above: These results are [...] [Mass/Vol] 75 mg/dL 74 - 99 mg/dL [facility] Interpretation and review of laboratory results Abnormal [facility] Potassium [Moles/Vol] 4.3 mmol/L 3.7 - 5.3 mmol/L [facility] Sodium [Moles/Vol] 120 mmol/L Low 136 - 145 mmol/L [facility] Urea nitrogen [Mass/Vol] 11 mg/dL 8 - 23 mg/dL [facility] Anion gap [Moles/Vol] 14 mmol/L 9 - 16 mmol/L [facility] Calcium [Mass/Vol] 8.5 mg/dL Low 8.6 - 10. 4 mg/dL [facility] Chloride [Moles/Vol] 89 mmol/L Low 98 - 10 7 mmol/L [facility] CO2 [Moles/Vol] 17 mmol/L Low 20 - 31 mmol/L [facility] Creatinine [Mass/Vol] 0.6 mg/dL Low 0.7 - 1.2 mg/dL [facility] EstJesu Rate - PINF [facility] Comment on above: These results are [...] [Mass/Vol] 76 mg/dL 74 - 99 mg/dL [facility] Interpretation and review of laboratory results Abnormal [facility] Potassium [Moles/Vol] 4.4 mmol/L 3.7 - 5.3 mmol/L [facility] Comment on above: Specimen hemolysis h as exceeded the interference as defined by Sindy. Value may be falsely increased. Suggest recollection if clinically indicated. Sodium [Moles/Vol] 120 mmol/L Low 136 - 145 mmol/L [facility] Urea nitrogen [Mass/Vol] 11 mg/dL 8 - 23 mg/dL [facility] Anion gap [Moles/Vol] 15 mmol/L 9 - 16 mmol/L [facility] Calcium [Mass/Vol] 8.6 mg/dL 8.6 - 10. 4 mg/dL [facility] Chloride [Moles/Vol] 86 mmol/L Low 98 - 10 7 mmol/L [facility] CO2 [Moles/Vol] 16 mmol/L Low 20 - 31 mmol/L [facility] Creatinine [Mass/Vol] 0.7 mg/dL 0.7 - 1.2 mg/dL [facility] Est, Jesu Michele Rate - PINF [facility] Comment on above: These results are [...] [Mass/Vol] 90 mg/dL 74 - 99 mg/dL [facility] Interpretation and review of laboratory results Abnormal [facility] Potassium [Moles/Vol] 4.1 mmol/L 3.7 - 5.3 mmol/L [facility] Comment on above: Specimen hemolysis h as exceeded the interference as defined by Sindy. Value may be falsely increased. Suggest recollection if clinically indicated. Sodium [Moles/Vol] 117 mmol/L Critically low 136 - 1 45 mmol/L [facility] Urea nitrogen [Mass/Vol] 12 mg/dL 8 - 23 mg/dL [facility] CALCIUM, IONIC (POC)on 06-04 Calcium.ionized (Bld) [Moles/Vol] 1.18 mmol/L 1.15 - 1.33 mmol/L [facility] CT HEAD WO CONTRASTon 2024 CT HEAD [...] Dixon Crockett MD 06/04/25 Final result Normal [facility] CT Head WO contraston 2024 1. No acute intracranial abnormality. 2. Acute right maxillary sinusitis. [facility] EXAMINATION: CT OF THE [...] cells. SOFT TISSUES/SKULL: The calvarium is intact. [facility] Dixon Crockett MD - [...] intracranial abnormality. 2. Acute right maxillary sinusitis. [facility] Radiology Study observation (narrative) [facility] CT Head WO contrastOrdered B y: Dixon Crockett on 06-04-2025 [facility] Work Phone: Calcium, Ionic (POC)on 06-04 Calcium [Moles/Vol] 1.18 mmol/L Normal 1.15-1.33 [facility] Cortisolon 06-04-2025 Cortisol 11.7 ug/dL Normal 2.5-19.5 [facility] Comment on above: Result Comment: Cortisol Reference Range: AM 6.0-18.4 PM 2.7-10.5 Performed By: #### O SMO #### [email or web address] [address] [place] [address] Excellence Leader: Pankaj Cordoba MD Cortisol Totalon 06-04-2025 Cortisol [Mass/Vol] 11.7 ug/dL 2.5 - 19 .5 ug/dL [facility] Comment on above: Cortisol Reference Range: AM 6.0-18.4 PM 2.7-10.5 Creatinine W/GFR Point of Ca reon 06-04-2025 Creatinine [Mass/Vol] 0.7 mg/dL 0.51 - 1.19 mg/dL [facility] eGFR, POC - PINF [facility] Comment on above: These results are not [...] 05-15 Creatinine [Mass/Vol] 0.7 mg/dL Normal 0.51-1.19 [facility] GFR/1.73 sq M.predicted among non-blacks MDRD (S/P/Bld) [Vol rate/Area] mL/min/{1.73_m2} Normal >60 [facility] Comment on above: Result Comment: These [...] 12 mmol/L 7 - 16 mmol/L [facility] Chloride [Moles/Vol] 89 mmol/L Low 98 - 10 7 mmol/L [facility] CO2 Calc (Bld) [Moles/Vol] 23 mmol/L 22 - 30 mmol/L [facility] Potassium [Moles/Vol] 3.9 mmol/L 3.5 - 4.5 mmol/L [facility] Sodium [Moles/Vol] 123 mmol/L Low 138 - 146 mmol/L [facility] Electrolyte Panelon 06-04-20 25 Anion gap [Moles/Vol] 9 mmol/L 9 - 16 mmol/L [facility] Chloride [Moles/Vol] 91 mmol/L Low 98 - 10 7 mmol/L [facility]So[facility] e[employer]utor CO2 [Moles/Vol] 21 mmol/L 20 - 31 mmol/L [facility] Interpretation and review of laboratory results Abnormal [facility] Potassium [Moles/Vol] 4.3 mmol/L 3.7 - 5.3 mmol/L [facility] Sodium [Moles/Vol] 121 mmol/L Low 136 - 145 mmol/L [facility] HospitalMineralist Health [facility]Cloud[facility] Anion gap [Moles/Vol] 12 mmol/L 9 - 16 mmol/L [facility] HospitalCloud[facility]Dream[facility] Chloride [Moles/Vol] 90 mmol/L Low 98 - 10 7 mmol/L [facility] CO2 [Moles/Vol] 20 mmol/L 20 - 31 mmol/L [facility] Interpretation and review of laboratory results Abnormal [facility] Potassium [Moles/Vol] 4.3 mmol/L 3.7 - 5.3 mmol/L [facility] Sodium [Moles/Vol] 122 mmol/L Low 136 - 145 mmol/L [facility] Anion gap [Moles/Vol] 11 mmol/L 9 - 16 mmol/L [facility] Chloride [Moles/Vol] 88 mmol/L Low 98 - 10 7 mmol/L [facility] CO2 [Moles/Vol] 19 mmol/L Low 20 - 31 mmol/L [facility] Interpretation and review of laboratory results Abnormal [facility] Potassium [Moles/Vol] 4.5 mmol/L 3.7 - 5.3 mmol/L [facility] Sodium [Moles/Vol] 118 mmol/L Critically low 136 - 1 45 mmol/L [facility] Electrolyteson 06-04-2025 Anion gap [Moles/Vol] 9 mmol/L Normal 9-16 [facility] Comment on above: Performed By: #### O SMO #### [place] [address] Excellence Leader: Pankaj Cordoba MD Chloride [Moles/Vol] 91 mmol/L Low 98-107 [facility] Comment on above: Performed By: #### O SMO #### [email or web address] [address] [place], [place] [phone] Excellence Leader: Pankaj Cordoba MD CO2 [Moles/Vol] 21 mmol/L Normal 20-31 [facility] Comment on above: Performed By: #### O SMO #### [email or web address] [address] [place], [place] [phone] Excellence Leader: Pankaj Cordoba MD Potassium [Moles/Vol] 4.3 mmol/L Normal 3.7-5.3 [facility] Comment on above: Performed By: #### O SMO #### [facility] [address] [place], [place] [address], [place] [address] Excellence Leader: Pankaj Cordoba MD Sodium [Moles/Vol] 121 mmol/L Low 136-145 [facility] Comment on above: Performed By: #### O SMO #### [facility] [address] [place] [address] Excellence Leader: Pankaj Cordoba MD Anion gap [Moles/Vol] 12 mmol/L Normal 9-16 [facility] Comment on above: Performed By: #### L YTE ####[address] [phone] Director: Pankaj Cordoba MD Chloride [Moles/Vol] 90 mmol/L Low 98-107 [facility] Comment on above: Performed By: #### L YTE ####[address] [phone] Director: Pankaj Cordoba MD CO2 [Moles/Vol] 20 mmol/L Normal 20-31 [facility] Comment on above: Performed By: #### L YTE ####[address] [address] Lab Director: Pankaj Cordoba MD Potassium [Moles/Vol] 4.3 mmol/L Normal 3.7-5.3 [facility] Comment on above: Performed By: #### L YTE ####[address] [phone] Director: Pankaj Cordoba MD Sodium [Moles/Vol] 122 mmol/L Low 136-145 [facility] Comment on above: Performed By: #### L YTE ####[address] [phone] Director: Pankaj Cordoba MD Anion gap [Moles/Vol] 11 mmol/L Normal 9-16 [facility] Comment on above: Performed By: #### O SMO #### [facility] [address] [place] [address] Excellence Leader: Pankaj Cordoba MD Chloride [Moles/Vol] 88 mmol/L Low 98-107 [facility] Comment on above: Performed By: #### O SMO #### [address] [phone] Excellence Leader: Pankaj Cordoba MD CO2 [Moles/Vol] 19 mmol/L Low 20-31 [facility] Comment on above: Performed By: #### O SMO #### [address] [address] Excellence Leader: Pankaj Cordoba MD Potassium [Moles/Vol] 4.5 mmol/L Normal 3.7-5.3 [facility] Comment on above: Performed By: #### O SMO #### [address] [address] Excellence Leader: Pankaj Cordoba MD Sodium [Moles/Vol] 118 mmol/L Critically low 136-145 [facility] Comment on above: Performed By: #### O SMO #### [address] [address] Excellence Leader: Pankaj Cordoba MD Anion gap [Moles/Vol] 12 mmol/L Normal 7-16 [facility] Chloride [Moles/Vol] 89 mmol/L Low 98-107 [facility] CO2 [Moles/Vol] 23 mmol/L Normal 22-30 [facility] Potassium [Moles/Vol] 3.9 mmol/L Normal 3.5-4.5 [facility] Sodium [Moles/Vol] 123 mmol/L Low 138-146 [facility] Glucose (POC)on 06-04-2025 Glucose [Mass/Vol] 81 mg/dL Normal 74-100 [facility] Glucose,Whole Bloodon 2024 Glucose [Mass/Vol] 119 mg/dL High 75-110 [facility] Glucose [Mass/Vol] 96 mg/dL Normal 75-110 [facility] Glucose [Mass/Vol] 117 mg/dL High 75-110 [facility] Glucose [Mass/Vol] 93 mg/dL Normal 75-110 [facility] Glucose [Mass/Vol] 76 mg/dL Normal 75-110 [facility] Hemoglobin and hematocrit, b loodon 06-04-2025 Hematocrit (Bld) [Volume fraction] 36 % Low 41 - 53 % [facility] Hemoglobin (Bld) [Mass/Vol] 12.3 g/dL Low 13.5 - 17.5 g/dL [facility] Hgb/Hct, POCon 06-04-2025 Hematocrit (Bld) [Volume fraction] 36 % Low 41-53 [facility] Hemoglobin (Bld) [Mass/Vol] 12.3 g/dL Low 13.5-17.5 [facility] Lactic Acid (POC)on 06-04-20 25 Lactate [Moles/Vol] 0.8 mmol/L Normal 0.56-1.39 [facility] Lactic Acid, POCon 5 POC Lactic Acid 0.8 mmol/L 0.56 - 1.39 mmol/L [facility] No Panel Informationon 06-04 [facility] Interpretation and review of laboratory results Abnormal [facility] Osmolality, Urineon 06-04-20 25 Osmolality (U) [Osmolality] 590 mosm/kg [facility] Osmolality - Urine 590 mOsm/kg Normal 80-1300 [facility] Comment on above: Performed By: #### U RNA, UOSMO ####[facility] [address] [place] [address] lab Director: Pankaj Cordoba MD POC Glucose Fingerstickon Glucose [Mass/Vol] 119 mg/dL High 75 - 110 mg/dL [facility] Interpretation and review of laboratory results Abnormal [facility] Glucose [Mass/Vol] 96 mg/dL 75 - 110 mg/dL [facility] Glucose [Mass/Vol] 117 mg/dL High 75 - 110 mg/dL [facility] Interpretation and review of laboratory results Abnormal [facility] Glucose [Mass/Vol] 93 mg/dL 75 - 110 mg/dL [facility] Glucose [Mass/Vol] 76 mg/dL 75 - 110 mg/dL [facility] POCT Glucoseon 06-04-2025 Glucose [Mass/Vol] 81 mg/dL 74 - 100 mg/dL [facility] POCT urea (BUN)on 06-04-2025 Urea nitrogen [Mass/Vol] 11 mg/dL 8 - 26 mg/dL [facility] PTon 06-04-2025 INR Coag (PPP) [Relative time] 1.8 {INR} Normal [facility] Comment on above: Result Comment: Therapeutic Range: Moderate Anticoagulant Intensity: INR = 2.0-3.0 High Anticoagulant Intensity: INR = 2.5-3.5 Performed By: #### P T #### [email or web address] [address] [place], [place] [phone] Excellence Leader: Pankaj Cordoba MD PT Coag (PPP) [Time] 21.4 s High 11.7-14.9 [facility] Comment on above: Performed By: #### P T #### [email or web address] [address] [place] [phone] Excellence Leader: Pankaj Cordoba MD Protime-INRon 06-04-2025 INR Coag (PPP) [Relative time] 1.8 {INR} [facility] Comment on above: Therapeutic Range: Moderate Anticoagulant Intensity: INR = 2.0-3.0 High Anticoagulant Intensity: INR = 2.5-3.5 Interpretation and review of laboratory results Abnormal [facility] PT Coag (PPP) [Time] 21.4 s High [facility] Sodium, Random Uron 06-04-20 25 Sodium (U) [Moles/Vol] 159 mmol/L Normal [facility] Comment on above: No normal range esta blished. Result Comment: No n ormal range established. Performed By: #### U RNA, UOSMO ####[facility] [address] [place], [place] [id number] Lab Director: Pankaj Cordoba MD Sodium, urine, randomon 05-15 [facility] T4, Freeon 06-04-2025 Free T4 [Mass/Vol] 1.5 ng/dL 0.92 - 1. 68 ng/dL [facility] TSHon 06-04-2025 TSH Qn 2.95 m[IU]/L [facility] Thyroid Stim. Horm.on 2024 Thyroid Stim. Horm. 2.95 uIU/mL Normal 0.27-4.20 [facility] Comment on above: Performed By: #### O SMO #### [facility] [address] [place] [address] Excellence Leader: Pankaj Cordoba MD Thyroxine, Freeon 06-04-2025 Thyroxine, Free 1.5 ng/dL Normal 0.92-1.68 [facility] Comment on above: Performed By: #### O SMO #### [facility] [address] [place] [address] Excellence Leader: Pankaj Cordoba MD Basic Metab w/rfx MGon 06-03 Anion gap [Moles/Vol] 11 mmol/L Normal 9-16 [facility] Comment on above: Performed By: #### O SMO #### [facility] [address] [place] [address] Excellence Leader: Pankaj Cordoba MD Calcium [Mass/Vol] 9.0 mg/dL Normal 8.6-10.4 [facility] Comment on above: Performed By: #### O SMO #### [address] [address] Excellence Leader: Pankaj Cordoba MD Chloride [Moles/Vol] 90 mmol/L Low 98-107 [facility] Comment on above: Performed By: #### O SMO #### [facility] [address] [place] [address] Excellence Leader: Pankaj Cordoba MD CO2 [Moles/Vol] 20 mmol/L Normal 20-31 [facility] Comment on above: Performed By: #### O SMO #### [address] [address] Excellence Leader: Pankaj Cordoba MD Creatinine [Mass/Vol] 0.7 mg/dL Normal 0.7-1.2 [facility] Comment on above: Performed By: #### O SMO #### [address] [address] Excellence Leader: Pankaj Cordoba MD GFR/1.73 sq M.predicted among non-blacks MDRD (S/P/Bld) [Vol rate/Area] mL/min/{1.73_m2} Normal >60 [facility] Comment on above: Result Comment: These [...] secretion. Performed By: #### O SMO #### [address] [address] Excellence Leader: Pankaj Cordoba MD Glucose [Mass/Vol] 107 mg/dL High 74-99 [facility] Comment on above: Performed By: #### O SMO #### [address] [phone] Excellence Leader: Pankaj Cordoba MD Potassium [Moles/Vol] 4.8 mmol/L Normal 3.7-5.3 [facility] Comment on above: Result Comment: Spec imen hemolysis has exceeded the interference as defined by Sindy. Value may be falsely increased. Suggest recollection if clinically indicated. Performed By: #### O SMO #### [email or web address] [address] [place], [place] [phone] Excellence Leader: Pankaj Cordoba MD Sodium [Moles/Vol] 121 mmol/L Low 136-145 [facility] Comment on above: Performed By: #### O SMO #### [email or web address] [place], [place] [id number] Excellence Leader: Pankaj Cordoba MD Urea nitrogen [Mass/Vol] 13 mg/dL Normal 8-23 [facility] Comment on above: Performed By: #### O SMO #### [employer] [address] [place] [address] Excellence Leader: Pankaj Cordoba MD Basic Metabolic Panel w/ Ref maura to MGon 06-03-2025 Anion gap [Moles/Vol] 11 mmol/L 9 - 16 mmol/L [facility] Calcium [Mass/Vol] 9 mg/dL 8.6 - 10. 4 mg/dL [facility] Chloride [Moles/Vol] 90 mmol/L Low 98 - 10 7 mmol/L [facility] CO2 [Moles/Vol] 20 mmol/L 20 - 31 mmol/L [facility] Creatinine [Mass/Vol] 0.7 mg/dL 0.7 - 1.2 mg/dL [facility] Est, Glom Filt Rate - PINF [facility] Comment on above: These results are [...] 107 mg/dL High 74 - 99 mg/dL [facility] Interpretation and review of laboratory results Abnormal [facility] Potassium [Moles/Vol] 4.8 mmol/L 3.7 - 5.3 mmol/L [facility] Comment on above: Specimen hemolysis h as exceeded the interference as defined by Sindy. Value may be falsely increased. Suggest recollection if clinically indicated. Sodium [Moles/Vol] 121 mmol/L Low 136 - 145 mmol/L [facility] Urea nitrogen [Mass/Vol] 13 mg/dL 8 - 23 mg/dL [facility] CBC with Auto Differentialon 06-03-2025 Basophils (Bld) [#/Vol] 0.04 10*3/uL [facility] Basophils/100 WBC (Bld) 1 % 0 - 2 % [facility] Eosinophils (Bld) [#/Vol] 0.08 10*3/uL [facility] Eosinophils/100 WBC (Bld) 1 % 1 - 4 % [facility] Erythrocyte distribution width (RBC) [Ratio] 13 % 11.8 - 14.4 % [facility] Hematocrit (Bld) [Volume fraction] 35.2 % Low 40.7 - 50.3 % [facility] Hemoglobin (Bld) [Mass/Vol] 12.3 g/dL Low 13.0 - 17.0 g/dL [facility] Immature granulocytes (Bld) [#/Vol] [facility] Immature granulocytes/100 WBC (Bld) 0 % 0 [facility] Interpretation and review of laboratory results Abnormal [facility] Lymphocytes/100 WBC (Bld) 23 % Low 24 - 43 % [facility] Lymphocytes/100 WBC (Bld) 1.68 % [facility] MCH (RBC) [Entitic mass] 30.9 pg 25.2 - 33.5 pg [facility] MCHC (RBC) [Mass/Vol] 34.9 g/dL High 28.4 - 34.8 g/dL [facility] MCV (RBC) [Entitic vol] 88.4 fL 82.6 - 102.9 fL [facility] Monocytes/100 WBC (Bld) 11 % 3 - 12 % [facility] Monocytes/100 WBC (Bld) 0.8 % [facility] Neutrophils/100 WBC (Bld) 64 % 36 - 65 % [facility] Nucleated RBC/100 WBC (Bld) [Ratio] 0 % 0.0 per 100 WBC [facility] e[employer]utor Platelet, Fluorescence 132 Low [facility] Platelets (Bld) [#/Vol] See Reflexed IPF Result [facility] e[employer]utor Platelets reticulated/100 platelets Auto (Bld) 5.3 % 1.1 - 10.3 % [facility] RBC (Bld) [#/Vol] 3.98 10*6/uL Low 4.21 - 5.7 7 m/uL [facility] e[employer] Segmented neutrophils/100 WBC (Bld) 4.63 % [facility] WBC other (Bld) [#/Vol] 7.2 [facility] Health [facility] CBC with Diffon 06-03-2025 Abs. Basophil 0.04 k/uL Normal 0.00-0.20 [facility] Comment on above: Performed By: #### O SMO #### [facility] [address] [place] [address] Excellence Leader: Pankaj Cordoba MD Abs.Imm.Granulocyte <0.03 Normal 0.00-0.30 [facility] Comment on above: Performed By: #### O SMO #### [facility] [address] [place] [address] Excellence Leader: Pankaj Cordoba MD Abs.Neutrophil (Seg) 4.63 k/uL Normal 1.50-8.10 [facility] Comment on above: Performed By: #### O SMO #### [facility] [address] [place] [address] Excellence Leader: Pankaj Cordoba MD Basophils/100 WBC (Bld) 1 % Normal 0-2 [facility] Comment on above: Performed By: #### O SMO #### [address] [address] Excellence Leader: Pankaj Cordoba MD Eosinophils (Bld) [#/Vol] 0.08 10*3/uL Normal 0.00-0.44 [facility] Comment on above: Performed By: #### O SMO #### [address] [address] Excellence Leader: Pankaj Cordoba MD Eosinophils/100 WBC (Bld) 1 % Normal 1-4 [facility] Comment on above: Performed By: #### O SMO #### [address] [address] Excellence Leader: Pankaj Cordoba MD Erythrocyte distribution width (RBC) [Ratio] 13.0 % Normal 11.8-14.4 [facility] Comment on above: Performed By: #### O SMO #### [address] [address] Excellence Leader: Pankaj Cordoba MD Hematocrit (Bld) [Volume fraction] 35.2 % Low 40.7-50.3 [facility] Comment on above: Performed By: #### O SMO #### [address] [address] Excellence Leader: Pankaj Cordoba MD Hemoglobin (Bld) [Mass/Vol] 12.3 g/dL Low 13.0-17.0 [facility] Comment on above: Performed By: #### O SMO #### [address] [address] Excellence Leader: Pankaj Cordoba MD Immature granulocytes/100 WBC (Bld) 0 % Normal 0 [facility] Comment on above: Performed By: #### O SMO #### [address] [address] Excellence Leader: Pankaj Cordoba MD Lymphocytes (Bld) [#/Vol] 1.68 10*3/uL Normal 1.10-3.70 [facility] Comment on above: Performed By: #### O SMO #### [address] [address] Excellence Leader: Pankaj Corodba MD Lymphocytes/100 WBC (Bld) 23 % Low 24-43 [facility] Comment on above: Performed By: #### O SMO #### [address] [address] Excellence Leader: Pankaj Cordoba MD MCH (RBC) [Entitic mass] 30.9 pg Normal 25.2-33.5 [facility] Comment on above: Performed By: #### O SMO #### [address] [address] Excellence Leader: Pankaj Cordoba MD MCHC (RBC) [Mass/Vol] 34.9 g/dL High 28.4-34.8 [facility] Comment on above: Performed By: #### O SMO #### [address] [address] Excellence Leader: Pankaj Cordoba MD MCV (RBC) [Entitic vol] 88.4 fL Normal 82.6-102.9 [facility] Comment on above: Performed By: #### O SMO #### [address] [address] Excellence Leader: Pankaj Cordoba MD Monocytes (Bld) [#/Vol] 0.80 10*3/uL Normal 0.10-1.20 [facility] Comment on above: Performed By: #### O SMO #### [address] [address] Excellence Leader: Pankaj Cordoba MD Monocytes/100 WBC (Bld) 11 % Normal 3-12 [facility] Comment on above: Performed By: #### O SMO #### [address] [address] Excellence Leader: Pankaj Cordoba MD Neutrophil (Seg) 64 % Normal 36-65 [facility] Comment on above: Performed By: #### O SMO #### [address] [address] Excellence Leader: Pankaj Cordoba MD NRBC Automated 0.0 per 100 WBC Normal 0.0 [facility] Comment on above: Performed By: #### O SMO #### [address] [address] Excellence Leader: Pankaj Cordoba MD Platelet Count See Reflexed IPF Result Normal 138-453 [facility] Comment on above: Performed By: #### O SMO #### [address] [address] Excellence Leader: Pankaj Cordoba MD Platelet, Fluoresc. 132 k/uL Low 138-453 [facility] Comment on above: Performed By: #### O SMO #### [address] [address] Excellence Leader: Pankaj Cordoba MD PLT, Immature Fract. 5.3 % Normal 1.1-10.3 [facility] Comment on above: Performed By: #### O SMO #### [address] [address] Excellence Leader: Pankaj Cordoba MD RBC (Bld) [#/Vol] 3.98 10*6/uL Low 4.21-5.77 [facility] Comment on above: Performed By: #### O SMO #### [address] [address] Excellence Leader: Pankaj Cordoba MD WBC (Bld) [#/Vol] 7.2 10*3/uL Normal 3.5-11.3 [facility] Comment on above: Performed By: #### O SMO #### [employer] [address] [place], [place] [phone] Excellence Leader: Pankaj Cordoba MD Electrolyte Panelon 06-03-20 Anion gap [Moles/Vol] 14 mmol/L 9 - 16 mmol/L [facility] Chloride [Moles/Vol] 86 mmol/L Low 98 - 10 7 mmol/L [facility] CO2 [Moles/Vol] 17 mmol/L Low 20 - 31 mmol/L [facility] Interpretation and review of laboratory results Abnormal [facility] Potassium [Moles/Vol] 4.4 mmol/L 3.7 - 5.3 mmol/L [facility] Comment on above: Specimen hemolysis h as exceeded the interference as defined by Sindy. Value may be falsely increased. Suggest recollection if clinically indicated. Sodium [Moles/Vol] 117 mmol/L Critically low 136 - 1 45 mmol/L [facility] Anion gap [Moles/Vol] 12 mmol/L 9 - 16 mmol/L [facility] Chloride [Moles/Vol] 89 mmol/L Low 98 - 10 7 mmol/L [facility] CO2 [Moles/Vol] 19 mmol/L Low 20 - 31 mmol/L [facility] Interpretation and review of laboratory results Abnormal [facility] Potassium [Moles/Vol] 4.5 mmol/L 3.7 - 5.3 mmol/L [facility] Comment on above: Specimen hemolysis h as exceeded the interference as defined by Sindy. Value may be falsely increased. Suggest recollection if clinically indicated. Sodium [Moles/Vol] 120 mmol/L Low 136 - 145 mmol/L [facility] Electrolyteson 06-03-2025 Anion gap [Moles/Vol] 14 mmol/L Normal 9-16 [facility] Comment on above: Performed By: #### L YTE ####[employer] [place], [place] [id number] Lab Director: Pankaj Cordoba MD Chloride [Moles/Vol] 86 mmol/L Low 98-107 [facility] Comment on above: Performed By: #### L YTE ####[facility] [address] [place], [place] [phone] Director: Pankaj Cordoba MD CO2 [Moles/Vol] 17 mmol/L Low 20-31 [facility] Comment on above: Performed By: #### L YTE ####[facility] [address] [place], [place] [phone] Director: Pankaj Cordoba MD Potassium [Moles/Vol] 4.4 mmol/L Normal 3.7-5.3 [facility] Comment on above: Result Comment: Spec imen hemolysis has exceeded the interference as defined by Sindy. Value may be falsely increased. Suggest recollection if clinically indicated. Performed By: #### L YTE ####[facility] [address] [place], [place] [phone] Director: Pankaj Cordoba MD Sodium [Moles/Vol] 117 mmol/L Critically low 136-145 [facility] Comment on above: Performed By: #### L YTE ####[facility] [address] [place] [address] Lab Director: Pankaj Cordoba MD Anion gap [Moles/Vol] 12 mmol/L Normal 9-16 [facility] Comment on above: Performed By: #### L YTE ####[facility] [address] [place], [place] [phone] Director: Pankaj Cordoba MD Chloride [Moles/Vol] 89 mmol/L Low 98-107 [facility] Comment on above: Performed By: #### L YTE ####[facility] [address] [place] [address] Lab Director: Pankaj Cordoba MD CO2 [Moles/Vol] 19 mmol/L Low 20-31 [facility] Comment on above: Performed By: #### L YTE ####[facility] [address] [place] [address] Lab Director: Pankaj Cordoba MD Potassium [Moles/Vol] 4.5 mmol/L Normal 3.7-5.3 [facility] Comment on above: Result Comment: Spec imen hemolysis has exceeded the interference as defined by Sindy. Value may be falsely increased. Suggest recollection if clinically indicated. Performed By: #### L YTE ####[employer] [place] [address] Lab Director: Pankaj Cordoba MD Sodium [Moles/Vol] 120 mmol/L Low 136-145 [facility] Comment on above: Performed By: #### L YTE ####[employer] [place] [address] Lab Director: Pankaj Cordoba MD Glucose,Whole Bloodon 2024 Glucose [Mass/Vol] 92 mg/dL Normal 75-110 [facility] Glucose [Mass/Vol] 98 mg/dL Normal 75-110 [facility] Glucose [Mass/Vol] 124 mg/dL High 75-110 [facility] Glucose [Mass/Vol] 117 mg/dL High 75-110 [facility] Osmolalityon 06-03-2025 Interpretation and review of laboratory results Abnormal [email or web address] [facility] e[employer]utor Osmolality [Osmolality] 251 mosm/kg Low [facility] eTutor [facility] Osmolality [Osmolality] 251 mosm/kg Low 275-295 [facility] Comment on above: Performed By: #### O SMO #### [employer] [address] [place], [place] [phone] Excellence Leader: Pankaj Cordoba MD POC Glucose Fingerstickon Glucose [Mass/Vol] 92 mg/dL 75 - 110 mg/dL [email or web address] [facility] HospitalDreamer[facility] Glucose [Mass/Vol] 98 mg/dL 75 - 110 mg/dL [facility] Glucose [Mass/Vol] 124 mg/dL High 75 - 110 mg/dL [facility] Interpretation and review of laboratory results Abnormal [facility] Glucose [Mass/Vol] 117 mg/dL High 75 - 110 mg/dL [facility] Interpretation and review of laboratory results Abnormal [facility] PREVIOUS SPECIMENon 06-03-20 25 [facility] PTon 06-03-2025 INR Coag (PPP) [Relative time] 1.7 {INR} Normal [facility] Comment on above: Result Comment: Therapeutic Range: Moderate Anticoagulant Intensity: INR = 2.0-3.0 High Anticoagulant Intensity: INR = 2.5-3.5 Performed By: #### O SMO #### [facility] [address] [place], [place] [id number] Excellence Leader: Pankaj Cordoba MD PT Coag (PPP) [Time] 20.3 s High 11.7-14.9 [facility] Comment on above: Performed By: #### O SMO #### [employer] [address] [place], [place] [phone] Excellence Leader: Pankaj Cordoba MD Protime-INRon 06-03-2025 INR Coag (PPP) [Relative time] 1.7 {INR} [facility] Comment on above: Therapeutic Range: Moderate Anticoagulant Intensity: INR = 2.0-3.0 High Anticoagulant Intensity: INR = 2.5-3.5 Interpretation and review of laboratory results Abnormal [facility] PT Coag (PPP) [Time] 20.3 s High [facility] Basic Metab w/rfx MGon 06-02 Anion gap [Moles/Vol] 13 mmol/L Normal 9-16 [facility] Comment on above: Performed By: #### B MPX, PT, CDP ####[employer] [place], [place] [id number] Lab Director: Pankaj Cordoba MD Calcium [Mass/Vol] 9.1 mg/dL Normal 8.6-10.4 [facility] Comment on above: Performed By: #### B MPX, PT, CDP ####[facility] [address] [place] [address] [phone] Director: Pankaj Cordoba MD Chloride [Moles/Vol] 96 mmol/L Low 98-107 [facility] Comment on above: Performed By: #### B MPX, PT, CDP ####[facility] [address] [place], [place] [phone] Director: Pankaj Cordoba MD CO2 [Moles/Vol] 20 mmol/L Normal 20-31 [facility] Comment on above: Performed By: #### B MPX, PT, CDP ####[address] [phone] Director: Pankaj Cordoba MD Creatinine [Mass/Vol] 0.8 mg/dL Normal 0.7-1.2 [facility] Comment on above: Performed By: #### B MPX, PT, CDP ####[address] [phone] Director: Pankaj Cordoba MD GFR/1.73 sq M.predicted among non-blacks MDRD (S/P/Bld) [Vol rate/Area] 88 mL/min/{1.73_m2} Normal >60 [facility] Comment on above: Result Comment: These [...] By: #### B MPX, PT, CDP ####[facility] [address] [place] [address] Lab Director: Pankaj Cordoba MD Glucose [Mass/Vol] 117 mg/dL High 74-99 [facility] Comment on above: Performed By: #### B MPX, PT, CDP ####[facility] [address] [place] [address] lab Director: Pankaj Cordoba MD Potassium [Moles/Vol] 4.7 mmol/L Normal 3.7-5.3 [facility] Comment on above: Performed By: #### B MPX, PT, CDP ####[facility] [address] [place] [address] lab Director: Pankaj Cordoba MD Sodium [Moles/Vol] 129 mmol/L Low 136-145 [facility] Comment on above: Performed By: #### B MPX, PT, CDP ####[facility] [address] [place] [address] lab Director: Pankaj Cordoba MD Urea nitrogen [Mass/Vol] 16 mg/dL Normal 8-23 [facility] Comment on above: Performed By: #### B MPX, PT, CDP ####[facility] [address] [place] [address] lab Director: Pankaj Cordoba MD Basic Metabolic Panel w/ Ref maura to MGon 06-02-2025 Anion gap [Moles/Vol] 13 mmol/L 9 - 16 mmol/L [facility] Calcium [Mass/Vol] 9.1 mg/dL 8.6 - 10. 4 mg/dL [facility] Chloride [Moles/Vol] 96 mmol/L Low 98 - 10 7 mmol/L [facility] CO2 [Moles/Vol] 20 mmol/L 20 - 31 mmol/L [facility] Creatinine [Mass/Vol] 0.8 mg/dL 0.7 - 1.2 mg/dL [facility] Est, Glom Filt Rate 88 - PINF [facility] Comment on above: These results are [...] 117 mg/dL High 74 - 99 mg/dL [facility] Interpretation and review of laboratory results Abnormal [facility] Potassium [Moles/Vol] 4.7 mmol/L 3.7 - 5.3 mmol/L [facility] Sodium [Moles/Vol] 129 mmol/L Low 136 - 145 mmol/L [facility] Urea nitrogen [Mass/Vol] 16 mg/dL 8 - 23 mg/dL [facility] CBC with Auto Differentialon 06-02-2025 Basophils (Bld) [#/Vol] 0.06 10*3/uL [facility] Basophils/100 WBC (Bld) 1 % 0 - 2 % [facility] Eosinophils (Bld) [#/Vol] 0.08 10*3/uL [facility] Eosinophils/100 WBC (Bld) 1 % 1 - 4 % [facility] Erythrocyte distribution width (RBC) [Ratio] 13.2 % 11.8 - 14.4 % [facility] Hematocrit (Bld) [Volume fraction] 36.5 % Low 40.7 - 50.3 % [facility] Hemoglobin (Bld) [Mass/Vol] 12.3 g/dL Low 13.0 - 17.0 g/dL [facility] Immature granulocytes (Bld) [#/Vol] [facility] Immature granulocytes/100 WBC (Bld) 0 % 0 [facility] Interpretation and review of laboratory results Abnormal [facility] Lymphocytes/100 WBC (Bld) 25 % 24 - 43 % [facility] Lymphocytes/100 WBC (Bld) 1.93 % [facility] MCH (RBC) [Entitic mass] 30.7 pg 25.2 - 33.5 pg [facility] MCHC (RBC) [Mass/Vol] 33.7 g/dL 28.4 - 34.8 g/dL [facility] MCV (RBC) [Entitic vol] 91 fL 82.6 - 102.9 fL [facility] Health Monocytes/100 WBC (Bld) 11 % 3 - 12 % [facility] Monocytes/100 WBC (Bld) 0.84 % [facility] Neutrophils/100 WBC (Bld) 62 % 36 - 65 % [facility] Nucleated RBC/100 WBC (Bld) [Ratio] 0 % 0.0 per 100 WBC [facility] Platelet mean volume (Bld) [Entitic vol] 11.3 fL 8.1 - 13.5 fL [facility] Platelets (Bld) [#/Vol] 147 10*3/uL [facility] RBC (Bld) [#/Vol] 4.01 10*6/uL Low 4.21 - 5.7 7 m/uL [facility] Segmented neutrophils/100 WBC (Bld) 4.88 % [facility] WBC other (Bld) [#/Vol] 7.8 [facility] CBC with Diffon 06-02-2025 Abs. Basophil 0.06 k/uL Normal 0.00-0.20 [facility] Comment on above: Performed By: #### B MPX, PT, CDP ####[facility] [address] [place] [address] Lab Director: Pankaj Cordoba MD Abs.Imm.Granulocyte <0.03 Normal 0.00-0.30 [facility] Comment on above: Performed By: #### B MPX, PT, CDP ####[facility] [address] [place] [id number] Lab Director: Pankaj Cordoba MD Abs.Neutrophil (Seg) 4.88 k/uL Normal 1.50-8.10 [facility] Comment on above: Performed By: #### B MPX, PT, CDP ####[facility] [address] [place], [place] [phone] Director: Pankaj Cordoba MD Basophils/100 WBC (Bld) 1 % Normal 0-2 [facility] Comment on above: Performed By: #### B MPX, PT, CDP ####[facility] [address] [place] [address] [phone] Director: Pankaj Cordoba MD Eosinophils (Bld) [#/Vol] 0.08 10*3/uL Normal 0.00-0.44 [facility] Comment on above: Performed By: #### B MPX, PT, CDP ####[address] [address])[phone] Director: Pankaj Cordoba MD Eosinophils/100 WBC (Bld) 1 % Normal 1-4 [facility] Comment on above: Performed By: #### B MPX, PT, CDP ####[address] [address])[phone] Director: Pankaj Cordoba MD Erythrocyte distribution width (RBC) [Ratio] 13.2 % Normal 11.8-14.4 [facility] Comment on above: Performed By: #### B MPX, PT, CDP ####[facility] [address] [place] [address])[phone] Director: Pankaj Cordoba MD Hematocrit (Bld) [Volume fraction] 36.5 % Low 40.7-50.3 [facility] Comment on above: Performed By: #### B MPX, PT, CDP ####[facility] [address] [place] [address])[phone] Director: Pankaj Cordoba MD Hemoglobin (Bld) [Mass/Vol] 12.3 g/dL Low 13.0-17.0 [facility] Comment on above: Performed By: #### B MPX, PT, CDP ####[facility] [address] [place] [address] Lab Director: Pankaj Cordoba MD Immature granulocytes/100 WBC (Bld) 0 % Normal 0 [facility] Comment on above: Performed By: #### B MPX, PT, CDP ####[facility] [address] [place] [address] Lab Director: Pankaj Cordoba MD Lymphocytes (Bld) [#/Vol] 1.93 10*3/uL Normal 1.10-3.70 [facility] Comment on above: Performed By: #### B MPX, PT, CDP ####[facility] [address] [place], [place] [address])[phone] Director: Pankaj Cordoab MD Lymphocytes/100 WBC (Bld) 25 % Normal 24-43 [facility] Comment on above: Performed By: #### B MPX, PT, CDP ####[facility] [address] [place], [place] [phone] Director: Pankaj Cordoba MD MCH (RBC) [Entitic mass] 30.7 pg Normal 25.2-33.5 [facility] Comment on above: Performed By: #### B MPX, PT, CDP ####[facility] [address] [place] [address] Lab Director: Pankaj Cordoba MD MCHC (RBC) [Mass/Vol] 33.7 g/dL Normal 28.4-34.8 [facility] Comment on above: Performed By: #### B MPX, PT, CDP ####[facility] [address] [place] [address] Lab Director: Pankaj Cordoba MD MCV (RBC) [Entitic vol] 91.0 fL Normal 82.6-102.9 [facility] Comment on above: Performed By: #### B MPX, PT, CDP ####[facility] [address] [place] [address] Lab Director: Pankaj Cordoba MD Monocytes (Bld) [#/Vol] 0.84 10*3/uL Normal 0.10-1.20 [facility] Comment on above: Performed By: #### B MPX, PT, CDP ####[facility] [address] [place], [place] [phone] Director: Pankaj Cordoba MD Monocytes/100 WBC (Bld) 11 % Normal 3-12 [facility] Comment on above: Performed By: #### B MPX, PT, CDP ####[facility] [address] [place], [place] [phone] Director: Pankaj Cordoba MD Neutrophil (Seg) 62 % Normal 36-65 [facility] Comment on above: Performed By: #### B MPX, PT, CDP ####[facility] [address] [place] [address])[phone] Director: Pankaj Cordoba MD NRBC Automated 0.0 per 100 WBC Normal 0.0 [facility] Comment on above: Performed By: #### B MPX, PT, CDP ####[facility] [address] [place], [place] [phone] Director: Pankaj Cordoba MD Platelet mean volume (Bld) [Entitic vol] 11.3 fL Normal 8.1-13.5 [facility] Comment on above: Performed By: #### B MPX, PT, CDP ####[facility] [address] [place], [place] [phone] Director: Pankaj Cordoba MD Platelets (Bld) [#/Vol] 147 10*3/uL Normal 138-453 [facility] Comment on above: Performed By: #### B MPX, PT, CDP ####[facility] [address] [place], [place] [phone] Director: Pankaj Cordoba MD RBC (Bld) [#/Vol] 4.01 10*6/uL Low 4.21-5.77 [facility] Comment on above: Performed By: #### B MPX, PT, CDP ####[facility] [address] [place], [place] [phone] lab Director: Pankaj Cordoba MD WBC (Bld) [#/Vol] 7.8 10*3/uL Normal 3.5-11.3 [facility] Comment on above: Performed By: #### B MPX, PT, CDP ####[facility] [address] [place] [address] lab Director: Pankaj Cordoba MD Glucose,Whole Bloodon 2024 Glucose [Mass/Vol] 127 mg/dL High 75-110 [facility] Glucose [Mass/Vol] 109 mg/dL Normal 75-110 [facility] Glucose [Mass/Vol] 110 mg/dL Normal 75-110 [facility] POC Glucose Fingerstickon Glucose [Mass/Vol] 127 mg/dL High 75 - 110 mg/dL [facility] Interpretation and review of laboratory results Abnormal [facility] Glucose [Mass/Vol] 109 mg/dL 75 - 110 mg/dL [facility] Glucose [Mass/Vol] 110 mg/dL 75 - 110 mg/dL [facility] PTon 06-02-2025 INR Coag (PPP) [Relative time] 1.9 {INR} Normal [facility] Comment on above: Result Comment: Therapeutic Range: Moderate Anticoagulant Intensity: INR = 2.0-3.0 High Anticoagulant Intensity: INR = 2.5-3.5 Performed By: #### B MPX, PT, CDP ####[facility] [id number] [place], [place] [id number] lab Director: Pankaj Cordoba MD PT Coag (PPP) [Time] 22.2 s High 11.7-14.9 [facility] Comment on above: Performed By: #### B MPX, PT, CDP ####[facility] [address] [place] [id number] lab Director: Pankaj Cordoba MD Protime-INRon 06-02-2025 INR Coag (PPP) [Relative time] 1.9 {INR} [facility] Comment on above: Therapeutic Range: Moderate Anticoagulant Intensity: INR = 2.0-3.0 High Anticoagulant Intensity: INR = 2.5-3.5 Interpretation and review of laboratory results Abnormal [facility] [employer]elli[employer]att PT Coag (PPP) [Time] 22.2 s High [facility] CHEMISTRYOrdered By: Christine Stevens on 05-20-2025 Albumin [...] (Bld) [Mass fraction] 5.6 % Normal <=5.9% [facility] ChemAutoSS [id number] 05-20-2025 HbA1c (Bld) [Mass fraction] 5.6 % Normal <=5.9 [facility] Comment on above: Performed By: #### 7 [id number] #### [facility] [address] [place] [address] Lipid Panelon 05-20-2025 Cholesterol [Mass/Vol] 150 mg/dL Normal 120-200 [facility] Comment on above: Performed By: #### 2 [id number] #### [facility] [address] [place] [address] Cholesterol in HDL [Mass/Vol] 57 mg/dL Invalid Interpretation Code [facility] Comment on above: Result Comment: '>= 60 LOW RISK' '<= 40 HIGH RISK' Performed By: #### 2 [id number] #### [facility] [address] [place] [address] Cholesterol in LDL [Mass/Vol] 77 mg/dL Normal <=129 [facility] Comment on above: Performed By: #### 2 [id number] #### [facility] [address] [place] [address] Cholesterol in VLDL [Mass/Vol] 11 mg/dL Normal 7-40 [facility] Comment on above: Performed By: #### 2 [id number] #### [facility] [address] [place] [address] Triglyceride [Mass/Vol] 53 mg/dL Normal <=149 [facility] Comment on above: Performed By: #### 2 [id number] #### [facility] [address] [place] [address] U MA/Cr Ratioon 05-20-2025 Microalb/Cr Ratio NOT CALCULATED Invalid Interpretation Code .0-30.0 [facility] Comment on above: Result Comment: 30-3 00 mg/g Cr indicates an increased risk for diabetic nephropathy. >300 mg/g Cr is consistent with clinical nephropathy. Performed By: #### 1 [id number] #### [facility] [address] [place] [address] U Creatinine 62.9 mg/dL Invalid Interpretation Code [facility] Comment on above: Performed By: #### 1 [id number] #### [facility] [address] [place] [address] U Microalb <0.7 Normal 0.0-1.9 [facility] Comment on above: Performed By: #### 1 [id number] #### [facility] [address] [place] [address] Ambulatory Visit Summaryon 0 05-09-2025 Ambulatory Visit [...] Appointments Tuesday 8:20 AM EDT With: Where: [address] [place] [address]- Tuesday 10:40 AM EDT With: YANIQUE MCNEILL CNP Where: [address] [place] [address]- Tuesday2025 8:00 AM EDT With: Where: [address] [place] [address]- You Need to Complete the Following HgbA1c, [...] By Mouth Every day Pickup at [facility] Unchanged Turmeric (Turmeric 500 mg oral capsule) 1 Capsules By Mouth Every day as needed for Prophylaxis Unchanged ubiquinone (CoQ10) See instructions Unchanged warfarin (warfarin 5 mg Tab) 1 Tablets By Mouth Every day Pharmacy Information [facility]: [address] [facility] ANDERSON Cristobal [phone] Allergies No Known Medication Allergies Problems Ongoing [...] in a (more content not included)... Normal [facility] Family Medicine Office/Clini c Noteon 05-09-2025 [...] prevent tripping and/or falling. [place] Advance Directives reviewed, at home. Encouraged to [...] patient requests, he will have completed at [facility] prior to next PCP visit. Colonoscopy screenings [...] Voices understandin (more content not included)... Normal [facility] Comment on above: Result Comment: [...] Follow-Up Appointments 2024 8:00 AM EDT Where: [place] [id number]- Medications What How Much When Instructions Unchanged [...] for choosing us for your care. Normal [facility] BMPon 02-05-2025 Anion gap [Moles/Vol] 8 mmol/L Normal 6-16 [facility] Comment on above: Performed By: #### 2 [id number] #### [facility] [address] [place] [address] Calcium [Mass/Vol] 8.8 mg/dL Low 8.9-11.1 [facility] Comment on above: Performed By: #### 2 [id number] #### [facility] [address] [place] [address] Chloride [Moles/Vol] 99 mmol/L Low 101-111 [facility] Comment on above: Performed By: #### 2 [id number] #### [facility] [address] [place] [address] CO2 [Moles/Vol] 28 mmol/L Normal 21-31 [facility] Comment on above: Performed By: #### 2 [id number] #### [facility] [address] [place] [address] Creatinine [Mass/Vol] 1.0 mg/dL Normal 0.5-1.3 [facility] Comment on above: Performed By: #### 2 [id number] #### [facility] [address] [place] [address] Glucose [Mass/Vol] 104 mg/dL Normal 55-199 [facility] Comment on above: Performed By: #### 2 [id number] #### [facility] [address] [place] [address] Potassium [Moles/Vol] 4.2 mmol/L Normal 3.5-5.3 [facility] Comment on above: Performed By: #### 2 [id number] #### [facility] [address] [place] [address] Sodium [Moles/Vol] 131 mmol/L Low 135-145 [facility] Comment on above: Performed By: #### 2 [id number] #### [facility] [address] [place] [address] Urea nitrogen [Mass/Vol] 13 mg/dL Normal 5-21 [facility] Comment on above: Performed By: #### 2 [id number] #### [facility] [address] [place] [address] Urea nitrogen/Creatinine [Mass ratio] 13 No Units Normal 10-20 [facility] Comment on above: Performed By: #### 2 [id number] #### [facility] [address] [place] [address] CHEMISTRYOrdered By: SYSTEM SYSTEM on 02-05-2025 Anion [...] reports as effective. 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 The [...] confirmation of an upcoming appointment with a power plant operators supervisor later in February to further assess their [...] mcg(0.025 mg) (more content not included)... Normal [facility] Comment on above: Result Comment: Elec tronically Signed By: Adam COHN, Edwin Lopez.br\Date and Time Signed: 02/05/25 13:47 EDT eGFRon 02-05-2025 eGFR 75 mL/min/1.73 m2 Normal >=59 [facility] Comment on above: Performed By: #### 1 [id number] #### [facility] [address] [place] [address] Ambulatory Visit Summaryon 0 01-24-2025 Ambulatory Visit [...] PM EDT With: Edwin Garcia MD Where: [address] [address]- 2024 8:00 AM EDT With: Where: [address] [id number]- Medications What How Much When Instructions Changed sodium chloride (Sodium Chloride 1 g oral tablet) See instructions 1 gram orally BID Pickup at [facility] Unchanged atenolol (atenolol 25 [...] if questions or concerns Pharmacy Information [facility]: [address] [facility] [place] Cristobal [phone] Allergies No Known Medication Allergies Problems Ongoing [...] in adult (more content not included)... Normal [facility] BMPon 01-24-2025 Anion gap [Moles/Vol] 9 mmol/L Normal 6-16 [facility] Comment on above: Performed By: #### 2 [id number] #### [facility] [address] [place] [address] Calcium [Mass/Vol] 8.8 mg/dL Low 8.9-11.1 [facility] Comment on above: Performed By: #### 2 [id number] #### [facility] [address] [place] [address] Chloride [Moles/Vol] 98 mmol/L Low 101-111 [facility] Comment on above: Performed By: #### 2 [id number] #### [facility] [address] [place] [address] CO2 [Moles/Vol] 27 mmol/L Normal 21-31 [facility] Comment on above: Performed By: #### 2 [id number] #### [facility] [address] [place] [address] Creatinine [Mass/Vol] 1.0 mg/dL Normal 0.5-1.3 [facility] Comment on above: Performed By: #### 2 [id number] #### [facility] [address] [place] [address] Glucose [Mass/Vol] 114 mg/dL Normal 55-199 [facility] Comment on above: Performed By: #### 2 [id number] #### [facility] [address] [place] [address] Potassium [Moles/Vol] 4.5 mmol/L Normal 3.5-5.3 [facility] Comment on above: Performed By: #### 2 [id number] #### [facility] [address] [place] [address] Sodium [Moles/Vol] 129 mmol/L Low 135-145 [facility] Comment on above: Performed By: #### 2 112718 #### [facility] [address] [place] [address] Urea nitrogen [Mass/Vol] 12 mg/dL Normal 5-21 [facility] Comment on above: Performed By: #### 2 539305 #### [facility] [address] [place] [address] Urea nitrogen/Creatinine [Mass ratio] 12 No Units Normal 10-20 [facility] Comment on above: Performed By: #### 2 [id number] #### [facility] [address] [place] [address] CHEMISTRYOrdered By: SYSTEM SYSTEM on 01-24-2025 Anion [...] wear the damaged aids, requiring a future mechanical expert visit to resolve this issue. Moreover, the patient is under management for hypothyroidism, consistently taking his prescribed thyroid medication as directed. He denies experiencing notable symptoms of hypothyroidism, such as coldness or heightened fatigue. His reported increased daytime sleep appears to be associated more with lifestyle factors than with hypothyroidism. - Monitoring and follow-up for hyponatremia through scheduled nephrology appointment. - Anticipated mechanical expert visit for hearing aid assessment and repair [...] The patient will follow up with a power plant operators supervisor for further evaluation and management of hyponatremia. We will adjust the sodium supplementation based on the upcoming lab results. Ordered: Basic Metabolic Panel Lab Specimen Collect [id number] TSH With T4fr Reflex 5. 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 An appointment with an appropriate mechanical expert has been planned to assess and replace [...] ensure therap (more content not included)... Normal [facility] Comment on above: Result Comment: Elec tronically Signed By: Adam COHN, Edwin Lopez.br\Date and Time Signed: 01/24/25 14:16 EDT TSH With T4fr Reflexon 01-24 TSH Qn 2.69 m[IU]/L Normal 0.34-5.60 [facility] Comment on above: Performed By: #### 1 [id number] #### [facility] [address] [place] [address] eGFRon 01-24-2025 eGFR 75 mL/min/1.73 m2 Normal >=59 [facility] Comment on above: Performed By: #### 1 [id number] #### [facility] [address] [place] [address] Population Healthon 01-15-20 [facility] Case Information Case Priority: None Programs: -- Referral Source: Copyholder Referral Reason: Care coordination Case Type: Transition [...] tcm note. Created By: Alec Rodrigez Normal [facility] BMPon 01-09-2025 Anion gap [Moles/Vol] 9 mmol/L Normal 6-16 [facility] Comment on above: Performed By: #### 2 [id number] #### [facility] [address] [place] [address] Calcium [Mass/Vol] 9.0 mg/dL Normal 8.9-11.1 [facility] Comment on above: Performed By: #### 2 [id number] #### [facility] [address] [place] [address] Chloride [Moles/Vol] 93 mmol/L Low 101-111 [facility] Comment on above: Performed By: #### 2 [id number] #### [facility] [address] [place] [address] CO2 [Moles/Vol] 27 mmol/L Normal 21-31 [facility] Comment on above: Performed By: #### 2 [id number] #### [facility] [address] [place] [address] Creatinine [Mass/Vol] 0.8 mg/dL Normal 0.5-1.3 [facility] Comment on above: Performed By: #### 2 [id number] #### [facility] [address] [place] [address] Glucose [Mass/Vol] 110 mg/dL Normal 55-199 [facility] Comment on above: Performed By: #### 2 [id number] #### [facility] [address] [place] [address] Potassium [Moles/Vol] 4.1 mmol/L Normal 3.5-5.3 [facility] Comment on above: Performed By: #### 2 [id number] #### [facility] [address] [place] [address] Sodium [Moles/Vol] 125 mmol/L Low 135-145 [facility] Comment on above: Performed By: #### 2 [id number] #### [facility] [address] [place] [address] Urea nitrogen [Mass/Vol] 12 mg/dL Normal 5-21 [facility] Comment on above: Performed By: #### 2 [id number] #### [facility] [address] [place] [address] Urea nitrogen/Creatinine [Mass ratio] 15 No Units Normal 10-20 [facility] Comment on above: Performed By: #### 2 [id number] #### [facility] [address] [place] [address] CHEMISTRYOrdered By: SYSTEM SYSTEM on 01-09-2025 Anion [...] 01-09-2025 eGFR 88 mL/min/1.73 m2 Normal >=59 [facility] Comment on above: Performed By: #### 1 [id number] #### [facility] [address] [place] [address] [facility] 01-07-20 [facility] Case Information Case Priority: None Programs: -- Referral Source: Copyholder Referral Reason: Care coordination Case Type: Transition [...] of 01-12, he'll be with [facility] Medicare. Patient has medication refill request, proposed [...] tcm note. Created By: Alec Rodrigez Normal [facility] BMPon 12-31-2024 Anion gap [Moles/Vol] 10 mmol/L Normal 6-16 [facility] Comment on above: Performed By: #### 2 [id number] #### [facility] [address] [place] [address] Calcium [Mass/Vol] 9.3 mg/dL Normal 8.9-11.1 [facility] Comment on above: Performed By: #### 2 [id number] #### [facility] [address] [place] [address] Chloride [Moles/Vol] 95 mmol/L Low 101-111 [facility] Comment on above: Performed By: #### 2 [id number] #### [facility] [address] [place] [address] CO2 [Moles/Vol] 27 mmol/L Normal 21-31 [facility] Comment on above: Performed By: #### 2 [id number] #### [facility] [address] [place] [address] Creatinine [Mass/Vol] 0.8 mg/dL Normal 0.5-1.3 [facility] Comment on above: Performed By: #### 2 [id number] #### [facility] [address] [place] [address] Glucose [Mass/Vol] 90 mg/dL Normal 55-199 [facility] Comment on above: Performed By: #### 2 169388 #### [facility] [address] [place] [address] Potassium [Moles/Vol] 4.3 mmol/L Normal 3.5-5.3 [facility] Comment on above: Performed By: #### 2 612447 #### [facility] [address] [place] [address] Sodium [Moles/Vol] 128 mmol/L Low 135-145 [facility] Comment on above: Performed By: #### 2 014210 #### [facility] [address] [place] [address] Urea nitrogen [Mass/Vol] 13 mg/dL Normal 5-21 [facility] Comment on above: Performed By: #### 2 [id number] #### [facility] [address] [place] [address] Urea nitrogen/Creatinine [Mass ratio] 16 No Units Normal 10-20 [facility] Comment on above: Performed By: #### 2 373534 #### [facility] [address] [place] [address] CHEMISTRYOrdered By: SYSTEM SYSTEM on 12-31-2024 Anion [...] 12-31-2024 eGFR 88 mL/min/1.73 m2 Normal >=59 [facility] Comment on above: Performed By: #### 1 [id number] #### [facility] [address] [place] [address] Family Medicine Office/Clini c Noteon 12-24-2024 Family [...] changes. We (more content not included)... Normal [facility] Comment on above: Result Comment: Elec tronically Signed By: Edwin Garcia MD\.br\Date and Time Signed: 12/24/24 13:[address] [facility] 12-24-19 [facility] Case Information Case Priority: None Programs: -- Referral Source: Copyholder Referral Reason: Care coordination Case Type: Transition [...] tcm note. Created By: Alec Rodrigez Normal [facility] BMPon 12-18-2024 Anion gap [Moles/Vol] 10 mmol/L Normal 6-16 [facility] Comment on above: Performed By: #### 2 690503 #### [facility] [address] [place] [address] Calcium [Mass/Vol] 9.1 mg/dL Normal 8.9-11.1 [facility] Comment on above: Performed By: #### 2 401896 #### [facility] [address] [place] [address] Chloride [Moles/Vol] 98 mmol/L Low 101-111 [facility] Comment on above: Performed By: #### 2 895594 #### [facility] [address] [place] [address] CO2 [Moles/Vol] 27 mmol/L Normal 21-31 [facility] Comment on above: Performed By: #### 2 914646 #### [facility] [address] [place] [address] Creatinine [Mass/Vol] 0.9 mg/dL Normal 0.5-1.3 [facility] Comment on above: Performed By: #### 2 988644 #### [facility] [address] [place] [address] Glucose [Mass/Vol] 113 mg/dL Normal 55-199 [facility] Comment on above: Performed By: #### 2 587188 #### [facility] [address] [place] [address] Potassium [Moles/Vol] 3.9 mmol/L Normal 3.5-5.3 [facility] Comment on above: Performed By: #### 2 820207 #### [facility] [address] [place] [address] Sodium [Moles/Vol] 131 mmol/L Low 135-145 [facility] Comment on above: Performed By: #### 2 158804 #### [facility] [address] [place] [address] Urea nitrogen [Mass/Vol] 10 mg/dL Normal 5-21 [facility] Comment on above: Performed By: #### 2 982172 #### [facility] [address] [place] [address] Urea nitrogen/Creatinine [Mass ratio] 11 No Units Normal 10-20 [facility] Comment on above: Performed By: #### 2 360863 #### [facility] [address] [place] [address] eGFRon 12-18-2024 eGFR 85 mL/min/1.73 m2 Normal >=59 [facility] Comment on above: Performed By: #### 1 [id number] #### [facility] [address] [place] [address] Family Medicine Office/Clini c Noteon 12-17-2024 Family Medicine Office/Clinic Note Family Medicine Office/Clinic Note Chief Complaint ER follow up Confusion and persistent fatigue post-discharge with a concern for recurrent hyponatremia HPI Staff Pt presents today for ER follow up. Hospital: [facility] Visit date:12/14/24 Symptoms the patient presented with: [...] up with Nephrology. Ordered: Basic Metabolic Panel [facility] External Ambulatory Referral 2. 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 Ordered: Basic Metabolic Panel [facility] External Ambulatory Referral 3. Longstanding persistent atrial fibrillation (I48.11: Longstanding persistent atrial fibrillation) Maintain current management regime, evaluate rhythm control, and anticoagulation status during follow-up visits. Ordered: Basic Metabolic Panel [facility] External Ambulatory Referral 4. Hyponatremia (E87.1: Hypo-osmolality and hyponatremia) Continue monitoring sodium levels closely, with recommended nephrology review for stabilization strategy. No significant lifestyle factors contributing to sodium imbalance noted. Ordered: Basic Metabolic Panel [facility] External Ambulatory Referral 5. Hypothyroid (E03.9: Hypothyroidism, unspecified) Monitor thyroid levels to ensure therapeutic levels are maintained, adjust medications if indicated by lab abnormalities. Ordered: Basic Metabolic Panel [facility] External Ambulatory Referral 6. Nonsmoker (Z78.9: Other specified health status) Please continue to not smoke. Ordered: Basic Metabolic Panel Orders: fluticasone nasal, See Instructions, 48 mL, Refill(s) 1, USE 1 SPRAY IN EACH NOSTRIL TWICE A DAY, [id number], 178, cm, 08/28/24 14:50:00 EDT, Height/Length Dosing, 82.2, kg, 08/28/24 14:50:00 EDT, Weight Dosing sodium chloride, See Instructions, 1 gram orally daily, # 90 tab(s), Refills(s) 0, Pharmacy: [facility], 178.6, cm, 12/17/24 15:05:00 EST, Height/Length Dosing, 78.5, kg, 12/17/24 15: (more content not included)... Normal [facility] Comment on above: Result Comment: Elec tronically Signed By: Adam COHN, Edwin Lopze.br\Date and Time Signed: 12/17/24 15:[address] [facility] 12-17-19 [facility] Case Information Case Priority: None Programs: -- Referral Source: Copyholder Referral Reason: Care coordination Case Type: Transition [...] Daily, 1 refills fluticasone Nasal 0.05 mg/inh [place], See Instructions, Self Directed gabapentin 300 mg [...] Care Plan Progress Note Admit Date: 12/14/24 [facility] Date of Discharge: 12/15/24 Follow-up appointment scheduled? [...] cold wea (more content not included)... Normal [facility] Main OR Intraoperative Recor don 11-20-2024 Main OR Intraoperative Record Main OR Intraoperative Record IntraOp Document Type FT Summary Primary Physician: Axel Hernández DO Finalized Date/Time: 11/20/24 07:56:52 Pt. Name: CLIFFORDKassiDARIEL/Sex: 1940 Male Med Rec #: [id number] Physician: Axel Hernández DO Financial #: [id number] Pt. Type: A Room/Bed: [facility] Admit/Disch: 11/19/24 09:28:12 - 11/19/24 14:30:00 [...] W Role Performed JULIETA Surgeon - Primary GALLEY COOK/SA Time In 11/19/24 12:10:00 11/19/24 12:23:00 11/19/24 12:10:00 Time Out 11/19/24 12:37:00 11/19/24 12:35:00 11/19/24 12:37:00 Procedure CARPAL TUNNEL CARPAL TUNNEL CARPAL TUNNEL RELEASE(Left) RELEASE(Left) RELEASE(Left) Comments DR LOU SUPERVISING Last Modified By: Ambrocio Borges Terry T Sweene, Terry T 11/19/24 12:45:19 11/19/24 12:53:03 11/19/24 12:45:19 Entry 4 Entry 5 Case Attendee Ambrocio Borges Laura C Role Performed Bar Finish Operator - Primary Scrub - Primary Time [...] Given Participants Hernández DO, Axel Smalls, Giana GALLEY COOK, Chau W, Lauren Grant, Ambrocio Borges Time [...] and tissue Entry 1 Skin Integrity Intact, [place], Warm, & Skin Abnormality No Dry Outcomes [...] Hand Ta (more content not included)... Normal [facility] Operative Reporton Operative Report Operative Report [...] PATIENT CONDITION: Satisfactory Deanna Weller Dictated: 11/19/2024 [id number] Transcribed: 11/19/2024 cc:Finn Medina [facility] Comment on above: Result Comment: Elec tronically Signed By: Axel Hernández DO\.br\Date and Time Signed: 11/20/24 16:36 EST BMPon 11-19-2024 Anion gap [Moles/Vol] 10 mmol/L Normal 6-16 [facility] Comment on above: Order Comment: To be drawn day of surgery. Performed By: #### 2 [id number] #### [facility] [address] [place] [address] Calcium [Mass/Vol] 9.2 mg/dL Normal 8.9-11.1 [facility] Comment on above: Order Comment: To be drawn day of surgery. Performed By: #### 2 [id number] #### [facility] [address] [place] [address] Chloride [Moles/Vol] 98 mmol/L Low 101-111 [facility] Comment on above: Order Comment: To be drawn day of surgery. Performed By: #### 2 [id number] #### [facility] [address] [place] [address] CO2 [Moles/Vol] 26 mmol/L Normal 21-31 [facility] Comment on above: Order Comment: To be drawn day of surgery. Performed By: #### 2 [id number] #### [facility] [address] [place] [address] Creatinine [Mass/Vol] 0.9 mg/dL Normal 0.5-1.3 [facility] Comment on above: Order Comment: To be drawn day of surgery. Performed By: #### 2 [id number] #### [facility] [address] [place] [address] Glucose [Mass/Vol] 77 mg/dL Normal 55-199 [facility] Comment on above: Order Comment: To be drawn day of surgery. Performed By: #### 2 [id number] #### [facility] [address] [place] [address] Potassium [Moles/Vol] 4.2 mmol/L Normal 3.5-5.3 [facility] Comment on above: Order Comment: To be drawn day of surgery. Performed By: #### 2 [id number] #### [facility] [address] [place] [address] Sodium [Moles/Vol] 130 mmol/L Low 135-145 [facility] Comment on above: Order Comment: To be drawn day of surgery. Performed By: #### 2 [id number] #### [facility] [address] [place] [address] Urea nitrogen [Mass/Vol] 8 mg/dL Normal 5-21 [facility] Comment on above: Order Comment: To be drawn day of surgery. Performed By: #### 2 [id number] #### [facility] [address] [place] [address] Urea nitrogen/Creatinine [Mass ratio] 9 No Units Low 10-20 [facility] Comment on above: Order Comment: To be drawn day of surgery. Performed By: #### 2 [id number] #### [facility] [address] [place] [address] CHEMISTRYOrdered By: Lab ROP User on 11-19-2024 Glucose [Mass/Vol] 78 mg/dL Normal 55 - 99 mg/dL [facility] POC Subsection Comment on above: Result Comment: Hilary danna Meter POC Username MAYA SOTELO Invalid Interpretation Code [facility] POC Subsection Sodium [Moles/Vol] [id number] mmol/L Invalid Interpretation Code [facility] POC Subsection Sodium [Moles/Vol] [id number] mmol/L Invalid Interpretation Code [facility] POC Subsection CHEMISTRYOrdered [...] 38.5 s High 25.1 - 36.5 second(s) [facility] Auto Coag Comment [...] the same coagulation reagent and instrumentation as [facility]. Currently there are no coagulation studies available worldwide for children to 14 days, and no normal ranges. Heparin therapeutic range (represented by Anti-Factor Xa activity of 0.2 - 0.4 U/mL) corresponds to PTT of 56.6 - 109.0 sec. INR Coag (PPP) [Relative time] 1.11 {INR} Invalid Interpretation Code [facility] Auto Coag Comment on above: Interpretive Data: I NR results are specifically intended to assess patients stabilized on long-term Anticoagulation therapy suggested INR s Less Intensive Anticoagulation 2.0 3.0 Conventional Range 3.0 4.5 PT Coag (PPP) [Time] 12.5 s Normal 9.4 - 1 2.5 second(s) [facility] Auto Coag Comment [...] the same coagulation reagent and instrumentation as [facility]. Currently there are no coagulation studies available worldwide for children to 14 days, and no normal ranges. Capillary Glucose POCon Glucose [Mass/Vol] 78 mg/dL Normal 55-99 [facility] Comment on above: Result Comment: Hilary danna Meter Performed By: #### 2 [id number] #### [facility] [address] [place] [address] Discharge Instructionson Discharge Instructions Discharge Instructions CLIFFORDDARIEL [...] Clinic 2024 8:00 AM EDT With: Where: [address] [address]- New Follow Up Appointments after Discharge Follow Up with GORDO Weller When: 11/28/2024 01:00 PM EST Comments: Keep scheduled appointment. Call for any problems. Where: [address] [place] [phone]- [employer] (1) Medications What How Much When Instructions [...] fluticasone nasal (fluticasone Nasal 0.05 mg/ inh [place]) See instructions USE 1 SPRAY IN EACH [...] Allergies No Known Medication Allergies Education Materials [place], [place] [facility] CARPAL TUNNEL RELEASE INSTRUCTIONS [...] if the (more content not included)... Normal [facility] Comment on above: Result Comment: Elec tronically Signed By: Dirk KHAN, Maya Vanegas\.br\Date and Time Signed: 11/19/24 13:12 EST [facility] CAPILLARY GLUCOSE POCon 11-19-2024 Glucose [Mass/Vol] 78 mg/dL 55 - 99 mg/dL [facility] Comment on above: Cleaned Meter Original Ordering Provider: DO Axel Hernández [facility] Main OR PACU I Recordon Main OR PACU I Record Main OR PACU I Record PACU Phase I Document Type FT Summary Primary Physician: Axel Hernández DO Finalized Date/Time: 11/19/24 13:24:52 Pt. Name: DARIEL ZABALA/Sex: 1940 Male Med Rec #: [id number] Physician: Axel Hernández DO Financial #: [id number] Pt. Type: A Room/Bed: Admit/Disch: 11/19/24 09:28:12 [...] 13:24 Vicki Sethi RN 11/19/24 13:24 Normal [facility] Main OR PACU II Recordon Main OR PACU II Record Main OR PACU II Record PACU Phase II Document Type FT Summary Primary Physician: Axel Hernández DO Finalized Date/Time: 11/19/24 14:27:02 Pt. Name: DARIEL ZABALA/Sex: 1940 Male Med Rec #: [id number] Physician: Axel Hernández DO Financial #: [id number] Pt. Type: A Room/Bed: [facility] Admit/Disch: 11/19/24 09:28:12 - Institution: Case [...] By: Maya Sotelo RN 11/19/24 14:27 Normal [facility] Main OR Preoperative Recordo n 11-19-2024 Main OR Preoperative Record Main OR Preoperative Record PreOp Document Type FT Summary Primary Physician: Axel Hernández DO Finalized Date/Time: 11/19/24 12:53:23 Pt. Name: DARIEL ZABALA/Sex: 1940 Male Med Rec #: [id number] Physician: Axel Hernández DO Financial #: [id number] Pt. Type: Room/Bed: [facility] Admit/Disch: 11/19/24 09:28:12 - Institution: Case [...] Borges 11/19/24 12:53 Ambrocio Borges 11/19/24 12:53 [facility] PT & PTTon 11-19-2024 aPTT Coag (PPP) [Time] 38.5 second(s) High 25.1-36.5 [facility] Comment on above: Result Comment: [...] the same coagulation reagent and instrumentation as [facility]. Currently there are no coagulation studies available worldwide for children to 14 days, and no normal ranges. Heparin therapeutic range (represented by Anti-Factor Xa activity of 0.2 - 0.4 U/mL) corresponds to PTT of 56.6 - 109.0 sec. Performed By: #### 1 [id number] #### [facility] [address] [place] [address] INR Coag (PPP) [Relative time] 1.11 {INR} Invalid Interpretation Code [facility] Comment on above: Result Comment: INR results are specifically intended to assess patients stabilized on long-term Anticoagulation therapy suggested INR???s ???Less Intensive Anticoagulation??? 2.0 ??? 3.0 Conventional Range 3.0 ??? 4.5 Performed By: #### 1 [id number] #### [facility] [address] [place] [address] PT Coag (PPP) [Time] 12.5 second(s) Normal 9.4-12.5 [facility] Comment on above: Result Comment: [...] the same coagulation reagent and instrumentation as [facility]. Currently there are no coagulation studies available worldwide for children to 14 days, and no normal ranges. Performed By: #### 1 [id number] #### [facility] [address] [place] [address] eGFRon 11-19-2024 eGFR 85 mL/min/1.73 m2 Normal >=59 [facility] Comment on above: Performed By: #### 1 [id number] ####[facility] [id number] [facility] [place] [address] BMPon 11-12-2024 Anion gap [Moles/Vol] 7 mmol/L Normal 6-16 [facility] Comment on above: Performed By: #### 2 [id number] #### [facility] [address] [place] [address] Calcium [Mass/Vol] 8.8 mg/dL Low 8.9-11.1 [facility] Comment on above: Performed By: #### 2 [id number] #### [facility] [address] [place] [address] Chloride [Moles/Vol] 97 mmol/L Low 101-111 [facility] Comment on above: Performed By: #### 2 [id number] #### [facility] [address] [place] [address] CO2 [Moles/Vol] 28 mmol/L Normal 21-31 [facility] Comment on above: Performed By: #### 2 790301 #### [facility] [address] [place] [address] Creatinine [Mass/Vol] 0.9 mg/dL Normal 0.5-1.3 [facility] Comment on above: Performed By: #### 2 535856 #### [facility] [address] [place] [address] Glucose [Mass/Vol] 106 mg/dL Normal 55-199 [facility] Comment on above: Performed By: #### 2 [id number] #### [facility] [address] [place] [address] Potassium [Moles/Vol] 4.4 mmol/L Normal 3.5-5.3 [facility] Comment on above: Performed By: #### 2 346003 #### [facility] [address] [place] [address] Sodium [Moles/Vol] 128 mmol/L Low 135-145 [facility] Comment on above: Performed By: #### 2 [id number] #### [facility] [address] [place] [address] Urea nitrogen [Mass/Vol] 12 mg/dL Normal 5-21 [facility] Comment on above: Performed By: #### 2 [id number] #### [facility] [address] [place] [address] Urea nitrogen/Creatinine [Mass ratio] 13 No Units Normal 10-20 [facility] Comment on above: Performed By: #### 2 [id number] #### [facility] [address] [place] [address] CHEMISTRYOrdered By: SYSTEM SYSTEM on 11-12-2024 Anion [...] (Bld) [Mass fraction] 5.4 % Normal <=5.9% [facility] ChemAutoSS [id number] 11-12-2024 HbA1c (Bld) [Mass fraction] 5.4 % Normal <=5.9 [facility] Comment on above: Performed By: #### 7 [id number] #### [facility] [address] [place] [address] Inpatient Patient Summaryon 11-12-2024 Inpatient Patient Summary Inpatient Patient Summary [facility] [address], [place] [address] [facility] Clinical Discharge Instructions PERSON INFORMATION Name: DARIEL ZABALA PHYSICIANS Admitting Physician: Axel Hernández DO Attending Physician: Axel Hernández DO PCP: Edwin Garcia MD Discharge Diagnosis: Carpal tunnel syndrome on left Comment: PATIENT EDUCATION INFORMATION Instructions: Edgar Gonzalez Carpal Tunnel Release Instructions (Custom) (CUSTOM) Medication Leaflets: Follow up: With: Address: When: Axel Hernández [address] [place] [address] [facility] (1) Comments: Keep scheduled appointment Type Location Start [facility] Surgery [facility] Surgical Services 11/19/2024 2:15 PM 11/19/2024 2:45 PM Confirmed Cardiology Follow Up (FT) [facility] 12/12/2024 10:15 AM 12/12/2024 10:30 AM Confirmed Medicare Wellness Subsequent [facility] FM Jackie 05/02/2025 [...] 1. fluticasone nasal (fluticasone Nasal 0.05 mg/inh [place]) USE 1 SPRAY IN EACH NOSTRIL TWICE [...] Tablets By Mouth every day. Comment: Normal [facility] Outpatient Surgery Discharge Instructionon 11-12-2024 Outpatient Surgery Discharge Instruction Outpatient Surgery Discharge Instruction [place] [id number] Patient Discharge Instructions PERSON INFORMATION Name: DARIEL ZABALA Date of : 1940 Current Date: 11/12/2024 12:08:22 PHYSICIANS Admitting Physician: Axel Hernández DO Discharge Diagnosis: Carpal tunnel syndrome on left DAREIL ZABALA has been given the following list [...] Follow up: With: Address: When: Axel Hernández [address] [place] [address] Business (1) Comments: Keep scheduled appointment Type Location Start [facility] Surgery FT [facility] Surgical Services 11/19/2024 2:15 PM 11/19/2024 2:45 PM Confirmed Cardiology Follow Up (FT) [facility]iology Clinic 12/12/2024 10:15 AM 12/12/2024 10:30 AM Confirmed Medicare Wellness Subsequent [facility] [place] 05/02/2025 8:00 AM 05/02/2025 9:00 AM Confirmed [...] you. Thank you for choosing [facility] HERE ARE THE MEDICATION CHANGES THAT OCCURRED [...] 1. fluticasone nasal (fluticasone Nasal 0.05 mg/inh [place]) USE 1 SPRAY IN EACH NOSTRIL TWICE [...] Mouth every day. PATIENT EDUCATION INFORMATION Instructions: [place], [place] [facility] CARPAL TUNNEL RELEASE INSTRUCTIONS Post-Operative Week One You will be in a soft dressing from mid palm to forearm. Please remove dressing two days after surgery. At that point, clean daily with peroxide or betadine and place daily fresh bandaids. Cover for showers with waterproof bandaid, op site occlusive dressing (more content not included)... Normal [facility] TSH With T4fr Reflexon 11-12 TSH Qn 2.17 m[IU]/L Normal 0.34-5.60 [facility] Comment on above: Performed By: #### 1 [id number] #### [facility] [address] [place] [address] eGFRon 11-12-2024 eGFR 85 mL/min/1.73 m2 Normal >=59 [facility] Comment on above: Performed By: #### 1 [id number] #### [facility] [address] [place] [address] Ambulatory Visit Summaryon 1 01-02-2024 Ambulatory Visit [...] Tab) fluticasone nasal (fluticasone Nasal 0.05 mg/inh [place]) gabapentin (gabapentin 300 mg Cap) glimepiride (glimepiride [...] Appointments Tuesday 9:20 AM EST With: Where: [address] [id number]- Tuesday 2:15 PM EST With: Where: [facility] Services Tuesday 10:15 AM EST With: Dixon Dubose PA-C Where: Cardiology Clinic 2024 8:00 AM EDT With: Where: [address] [id number]- Medications What How Much When Instructions Unchanged [...] fluticasone nasal (fluticasone Nasal 0.05 mg/ inh [place]) See instructions USE 1 SPRAY IN EACH [...] Clarke [facility] Family Medicine Office/Clini c Noteon 11-01-2024 Family [...] cardiovascular disease) (I25.10: Atherosclerotic heart disease of [place] coronary artery without angina pectoris) Denies CP. [...] Recent) 3074 (more content not included)... Normal [facility] Comment on above: Result Comment: Elec tronically Signed By: Adam COHN, Edwin Lopez.br\Date and Time Signed: 11/01/24 09:42 EST BMPon 10-30-2024 Anion gap [Moles/Vol] 11 mmol/L Normal 6-16 [facility] Comment on above: Performed By: #### 2 [id number] #### [facility] [address] [place] [address] Calcium [Mass/Vol] 9.0 mg/dL Normal 8.9-11.1 [facility] Comment on above: Performed By: #### 2 [id number] #### [facility] [address] [place] [address] Chloride [Moles/Vol] 96 mmol/L Low 101-111 [facility] Comment on above: Performed By: #### 2 [id number] #### [facility] [address] [place] [address] CO2 [Moles/Vol] 27 mmol/L Normal 21-31 [facility] Comment on above: Performed By: #### 2 [id number] #### [facility] [address] [place] [address] Creatinine [Mass/Vol] 0.9 mg/dL Normal 0.5-1.3 [facility] Comment on above: Performed By: #### 2 [id number] #### [facility] [address] [place] [address] Glucose [Mass/Vol] 87 mg/dL Normal 55-199 [facility] Comment on above: Performed By: #### 2 [id number] #### [facility] [address] [place] [address] Potassium [Moles/Vol] 4.7 mmol/L Normal 3.5-5.3 [facility] Comment on above: Performed By: #### 2 [id number] #### [facility] [address] [place] [address] Sodium [Moles/Vol] 129 mmol/L Low 135-145 [facility] Comment on above: Performed By: #### 2 190466 #### [facility] [address] [place] [address] Urea nitrogen [Mass/Vol] 15 mg/dL Normal 5-21 [facility] Comment on above: Performed By: #### 2 505651 #### [facility] [address] [place] [address] Urea nitrogen/Creatinine [Mass ratio] 17 No Units Normal 10-20 [facility] Comment on above: Performed By: #### 2 [id number] #### [facility] [address] [place] [address] CBC w/ Auto Diffon 4 Basophils/100 WBC (Bld) 0.9 % Normal 0.0-2.0 [facility] Comment on above: Performed By: #### 2 [id number] #### [facility] [address] [place] [address] Basophils/Leukocytes Auto (Bld) [Pure # fraction] 0.0 E9/L Normal 0.0-0.2 [facility] Comment on above: Performed By: #### 2 709990 #### [facility] [address] [place] [address] Eosinophils (Bld) [#/Vol] 0.2 E9/L Normal 0.0-0.5 [facility] Comment on above: Performed By: #### 2 301653 #### [facility] [address] [place] [address] Eosinophils/100 WBC (Bld) 3.6 % Normal 0.0-8.0 [facility] Comment on above: Performed By: #### 2 [id number] #### [facility] [address] [place] [address] Erythrocyte distribution width (RBC) [Ratio] 13.4 % Normal 10.9-14.2 [facility] Comment on above: Performed By: #### 2 976179 #### [facility] [address] [place] [address] Hematocrit (Bld) [Volume fraction] 36.3 % Low 37.7-49.0 [facility] Comment on above: Performed By: #### 2 [id number] #### [facility] [address] [place] [address] Hemoglobin (Bld) [Mass/Vol] 12.8 g/dL Low 13.5-17.5 [facility] Comment on above: Performed By: #### 2 [id number] #### [facility] [address] [place] [address] Lymphocytes (Bld) [#/Vol] 1.5 E9/L Normal 1.0-4.0 [facility] Comment on above: Performed By: #### 2 [id number] #### [facility] [address] [place] [address] Lymphocytes/100 WBC (Bld) 30.1 % Normal 14.0-50.0 [facility] Comment on above: Performed By: #### 2 170031 #### [facility] [address] [place] [address] MCH (RBC) [Entitic mass] 31.7 pg Normal 27.0-34.0 [facility] Comment on above: Performed By: #### 2 470344 #### [facility] [address] [place] [address] MCHC (RBC) [Mass/Vol] 35.2 g/dL Normal 31.4-36.0 [facility] Comment on above: Performed By: #### 2 [id number] #### [facility] [address] [place] [address] MCV (RBC) [Entitic vol] 90.1 fL Normal 80.0-100.0 [facility] Comment on above: Performed By: #### 2 [id number] #### [facility] [address] [place] [address] Monocytes (Bld) [#/Vol] 0.4 E9/L Normal 0.2-1.0 [facility] Comment on above: Performed By: #### 2 165648 #### [facility] [address] [place] [address] Neutrophils (Bld) [#/Vol] 2.9 E9/L Normal 2.0-7.5 [facility] Comment on above: Performed By: #### 2 086921 #### [facility] [address] [place] [address] Neutrophils/100 WBC (Bld) 56.9 % Normal 36.0-75.0 [facility] Comment on above: Performed By: #### 2 474178 #### [facility] [address] [place] [address] Platelet 175.0 E9/L Normal 150.0-500.0 [facility] Comment on above: Performed By: #### 2 710526 #### [facility] [address] [place] [address] Platelet mean volume (Bld) [Entitic vol] 9.1 fL Normal 6.4-10.8 [facility] Comment on above: Performed By: #### 2 240429 #### [facility] [address] [place] [address] RBC (Bld) [#/Vol] 4.0 E12/L Low 4.3-5.9 [facility] Comment on above: Performed By: #### 2 451543 #### [facility] [address] [place] [address] WBC corrected for nucl RBC Auto (Bld) [#/Vol] 5.1 E9/L Normal 4.0-11.0 [facility] Comment on above: Performed By: #### 2 176239 #### [facility] [address] [place] [address] CHEMISTRYOrdered By: SYSTEM SYSTEM on 10-30-2024 Anion [...] 10-30-2024 eGFR 85 mL/min/1.73 m2 Normal >=59 [facility] Comment on above: Performed By: #### 1 [id number] #### [facility] [address] [place] [address] Family Medicine Office/Clini c Noteon 09-10-2024 Family [...] # 90 tab(s), Refills(s) 0, Pharmacy: [facility], [facility], cm, 09/10/24 13:01:00 [...] Daily, 1 refills fluticasone Nasal 0.05 mg/inh [place], See Instructions gabapentin 300 mg Cap, 300 [...] Diabetes mellitus (more content not included)... Normal [facility] Comment on above: Result Comment: Elec tronically Signed By: Adam COHN, Edwin Cole\.br\Date and Time Signed: 09/10/24 13:19 EDT General Surgery Office/Clini c Noteon 08-28-2024 General Surgery Office/Clinic Note General Surgery Office/Clinic Note Chief Complaint ref- hernia HPI Staff [employer] Dariel is an 84 y.o. male here [...] E&M of New Patient Low 30-44 Min [id number] 2. ASCVD (arteriosclerotic cardiovascular disease) (I25.10: Atherosclerotic heart disease of [place] coronary artery without angina pectoris) The patient require surgery he will require cardiac clearance Ordered: E&M of New Patient Low 30-44 Min 62871 3. Longstanding persistent atrial fibrillation (I48.11: Longstanding persistent atrial fibrillation) Should patient require or opt for a robotic repair he will need to hold his anticoagulation for 5 days prior to the procedure Ordered: E&M of New Patient Low 30-44 Min 15808 Follow-up No qualifying data available Problem List/Past [...] Oral, Daily, 1 refills Flonase 0.05 mg/inh [place], 1 spray(s), Nasal, BID gabapentin 300 mg [...] Normal [facility] Comment on above: Result Comment: Elec tronically [...] mg Tab) fluticasone nasal (Flonase 0.05 mg/inh [place]) gabapentin (gabapentin 300 mg Cap) glimepiride (glimepiride [...] EST With: Adam COHN, Edwin Cole Where: [address] [id number]- Tuesday 1:00 PM EST With: Dixon Dubose PA-C Where: Cardiology Clinic 2024 8:00 AM EDT With: Where: [address] [address]- Medications What How Much When Why Instructions [...] Unchanged fluticasone nasal (Flonase 0.05 mg/ inh [place]) 1 Sprays Nasal Inhalation 2 times a [...] Normal [facility] Family Medicine Office/Clini c Noteon 08-07-2024 Family [...] advised him his appt is 08/13/24 with [facility] at 12:30pm History of Present [...] 21 tab(s), Refills(s) 0, Pharmacy: [facility]/pharmacy #[id number], 178, cm, 07/31/24 14:02:00 [...] Oral, Daily, 1 refills Flonase 0.05 mg/inh [place], 1 spray(s), Nasal, BID gabapentin 300 mg [...] 1 r (more content not included)... Normal [facility] Comment on above: Result Comment: [...] 21 tab(s), Refills(s) 0, Pharmacy: [facility]/pharmacy #[id number], 178, cm, 07/31/24 14:02:00 EDT, Height/Length Dosing, 78.5, kg, 07/31/24 14:02:00 EDT, Weight Dosing tramadol, 50 mg = 1 tab(s), Oral, q4hr, PRN for pain, X 7 day(s), # 21 tab(s), Refills(s) 0, Pharmacy: [facility]/pharmacy #[id number], 178, cm, 07/31/24 14:02:00 [...] Oral, Daily, 1 refills Flonase 0.05 mg/inh [place], 1 spray(s), Nasal, BID gabapentin 300 mg [...] Normal [facility] Comment on above: Result Comment: Elec tronically [...] mg Tab) fluticasone nasal (Flonase 0.05 mg/inh [place]) gabapentin (gabapentin 300 mg Cap) glimepiride (glimepiride [...] PM EDT With: Edwin Garcia MD Where: [address] [id number]- 2023 9:15 AM EST With: Edwin Garcia MD Where: [address] [address]- Tuesday 1:00 PM EST With: Dixon Dubose PA-C Where: [facility] 2024 8:00 AM EDT With: Where: [address] [address]- Medications What How Much When Instructions Unchanged [...] Unchanged fluticasone nasal (Flonase 0.05 mg/ inh [place]) 1 Sprays Nasal Inhalation 2 times a [...] Normal [facility] Family Medicine Office/Clini c Noteon 07-24-2024 Family Medicine Office/Clinic Note Family Medicine Office/Clinic Note HPI Staff Dariel is an 84 year old male presenting for ER follow up ER followup: Hospital: [facility] Visit date: 07/14/24 Symptoms the patient presented [...] patient was under the dosed. Patient stated [place] was helping him more. Patient denies any [...] - Will do Tizanadine - Will do [place] for pain - Follow up in 1 week. - Will send to pain Ordered: [facility] External Ambulatory Referral 2. Inguinal hernia of left side without obstruction or gangrene (K40.90: Unilateral inguinal hernia, without obstruction or gangrene, not specified as recurrent) - Pt cancelled his surgery. - NO pain at this time. - Encouraged follow up Ordered: [facility] External Ambulatory Referral 3. Nonsmoker (Z78.9: Other specified health status) - Please continue to not smoke Ordered: Body Mass Index (BMI) documented 3008F Current tobacco non-user 1036F Depression Screening Negative 3352F [facility] External Ambulatory Referral [...] 90 tab(s), Refills(s) 1, Pharmacy: [facility]/pharmacy #[id number], 178, cm, 07/24/24 14:57:00 [...] Oral, Daily, 1 refills Flonase 0.05 mg/inh [place], 1 spray(s), Nasal, BID gabapentin 300 mg Cap, 300 mg= 1 cap(s), Oral, Daily, 1 refills glimepiride 2 mg Tab, 2 mg= 1 tab(s), Oral, Daily, 1 refills Jantoven 5 mg oral tablet, 5 mg= 1 tab(s), Oral, Daily levothyroxine 25 mcg (0.025 mg) Tab, 25 mcg= 1 tab(s), Oral, Daily, 1 refills [place] 325 mg-5 mg oral tablet, 1 tab(s), [...] No. [place] (more content not included)... Normal [facility] Comment on above: Result Comment: Elec tronically Signed By: Edwin aGrcia MD\.br\Date and Time Signed: 07/24/24 15:24 EDT [...] AM EST With: Edwin Garcia MD Where: [facility] [address]- Tuesday 1:00 PM EST With: Dixon Dubose PA-C Where: [facility] 2024 8:00 AM EDT With: Where: [address] [address]- Medications What How Much When Instructions Unchanged [...] Clarke [facility] Family Medicine Office/Clini c Noteon 07-03-2024 Family [...] # 90 cap(s), Refills(s) 1, Pharmacy: [facility], 178, cm, 07/03/24 10:05:00 EDT, Height/Length Dosing, 80.8, kg, 07/03/24 10:05:00 EDT, Weight Dosing omeprazole, 40 mg = 1 cap(s), Oral, Daily, # 90 cap(s), Refills(s) 0, Pharmacy: [facility], 178.2, cm, 02/02/24 10:29:00 EDT, Height/Length Dosing, 84.1, kg, 02/02/24 10:29:00 EDT, Weight Dosing sildenafil, 100 mg = 1 tab(s), Oral, Daily, PRN for erectile dysfunction, 1 hour before sexual activity, # 5 tab(s), Refills(s) 0, Pharmacy: [facility], 178, cm, 07/03/24 10:05:00 EDT, Height/Length Dosing, 80.8, kg, 07/03/24 10:05:00 EDT,... 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 Normal [facility] Comment on above: Result Comment: [...] Normal [facility] Comment on above: Result Comment: Elec tronically Signed By: Ericka COHN, Kashif Perez.br\Date and Time Signed: 06/11/24 13:14 EDT CBC w/ Auto Diffon 4 Basophils/100 WBC (Bld) 0.9 % Normal 0.0-2.0 [facility] Comment on above: Performed By: #### 2 [id number] #### [facility] [address] [place] [address] Basophils/Leukocytes Auto (Bld) [Pure # fraction] 0.0 E9/L Normal 0.0-0.2 [facility] Comment on above: Performed By: #### 2 [id number] #### [facility] [address] [place] [address] Eosinophils (Bld) [#/Vol] 0.1 E9/L Normal 0.0-0.5 [facility] Comment on above: Performed By: #### 2 534129 #### [facility] [address] [place] [address] Eosinophils/100 WBC (Bld) 2.4 % Normal 0.0-8.0 [facility] Comment on above: Performed By: #### 2 [id number] #### [facility] [address] [place] [address] Erythrocyte distribution width (RBC) [Ratio] 14.4 % High 10.9-14.2 [facility] Comment on above: Performed By: #### 2 072677 #### [facility] [address] [place] [address] Hematocrit (Bld) [Volume fraction] 42.2 % Normal 37.7-49.0 [facility] Comment on above: Performed By: #### 2 013528 #### [facility] [address] [place] [address] Hemoglobin (Bld) [Mass/Vol] 14.0 g/dL Normal 13.5-17.5 [facility] Comment on above: Performed By: #### 2 147129 #### [facility] [address] [place] [address] Lymphocytes (Bld) [#/Vol] 1.4 E9/L Normal 1.0-4.0 [facility] Comment on above: Performed By: #### 2 699338 #### [facility] [address] [place] [address] Lymphocytes/100 WBC (Bld) 34.0 % Normal 14.0-50.0 [facility] Comment on above: Performed By: #### 2 258070 #### [facility] [address] [place] [address] MCH (RBC) [Entitic mass] 30.8 pg Normal 27.0-34.0 [facility] Comment on above: Performed By: #### 2 304927 #### [facility] [address] [place] [address] MCHC (RBC) [Mass/Vol] 33.1 g/dL Normal 31.4-36.0 [facility] Comment on above: Performed By: #### 2 812414 #### [facility] [address] [place] [address] MCV (RBC) [Entitic vol] 92.9 fL Normal 80.0-100.0 [facility] Comment on above: Performed By: #### 2 143199 #### [facility] [address] [place] [address] Monocytes (Bld) [#/Vol] 0.4 E9/L Normal 0.2-1.0 [facility] Comment on above: Performed By: #### 2 164775 #### [facility] [address] [place] [address] Neutrophils (Bld) [#/Vol] 2.2 E9/L Normal 2.0-7.5 [facility] Comment on above: Performed By: #### 2 111995 #### [facility] [address] [place] [address] Neutrophils/100 WBC (Bld) 53.4 % Normal 36.0-75.0 [facility] Comment on above: Performed By: #### 2 848490 #### [facility] [address] [place] [address] Platelet 166.0 E9/L Normal 150.0-500.0 [facility] Comment on above: Performed By: #### 2 296069 #### [facility] [address] [place] [address] Platelet mean volume (Bld) [Entitic vol] 9.8 fL Normal 6.4-10.8 [facility] Comment on above: Performed By: #### 2 754195 #### [facility] [address] [place] [address] RBC (Bld) [#/Vol] 4.5 E12/L Normal 4.3-5.9 [facility] Comment on above: Performed By: #### 2 431102 #### [facility] [address] [place] [address] WBC corrected for nucl RBC Auto (Bld) [#/Vol] 4.2 E9/L Normal 4.0-11.0 [facility] Comment on above: Performed By: #### 2 949871 #### [facility] [address] [place] [address] CHEMISTRYOrdered By: SYSTEM SYSTEM on 05-01-2024 Albumin [...] for this result was chemiluminescence using [employer]'s Access Hybritech PSA reagent. Protein [Mass/Vol] 7.1 [...] 05-01-2024 Albumin [Mass/Vol] 4.2 g/dL Normal 3.3-5.0 [facility] Comment on above: Performed By: #### 2 923365 #### [facility] [address] [place] [address] Albumin/Globulin (S) [Mass conc ratio] 1.4 Normal 1.1-2.2 [facility] Comment on above: Performed By: #### 2 467439 #### [facility] [address] [place] [address] ALP [Catalytic activity/Vol] 83 Int._Unit/L Normal 21-98 [facility] Comment on above: Performed By: #### 2 330271 #### [facility] [address] [place] [address] ALT No additional P-5'-P [Catalytic activity/Vol] 14 Int._Unit/L Normal 6-46 [facility] Comment on above: Performed By: #### 2 415000 #### [facility] [address] [place] [address] Anion gap [Moles/Vol] 10 mmol/L Normal 6-16 [facility] Comment on above: Performed By: #### 2 626523 #### [facility] [address] [place] [address] AST [Catalytic activity/Vol] 22 Int._Unit/L Normal 5-43 [facility] Comment on above: Performed By: #### 2 595912 #### [facility] [address] [place] [address] Bilirubin [Mass/Vol] 0.9 mg/dL Normal 0.0-1.1 [facility] Comment on above: Performed By: #### 2 617771 #### [facility] [address] [place] [address] Calcium [Mass/Vol] 9.5 mg/dL Normal 8.9-11.1 [facility] Comment on above: Performed By: #### 2 157726 #### [facility] [address] [place] [address] Chloride [Moles/Vol] 103 mmol/L Normal 101-111 [facility] Comment on above: Performed By: #### 2 258844 #### [facility] [address] [place] [address] CO2 [Moles/Vol] 29 mmol/L Normal 21-31 [facility] Comment on above: Performed By: #### 2 828046 #### [facility] [address] [place] [address] Creatinine [Mass/Vol] 1.1 mg/dL Normal 0.5-1.3 [facility] Comment on above: Performed By: #### 2 628815 #### [facility] [address] [place] [address] Globulin (S) [Mass/Vol] 2.9 g/dL Normal 1.4-4.0 [facility] Comment on above: Performed By: #### 2 651261 #### [facility] [address] [place] [address] Glucose [Mass/Vol] 104 mg/dL Normal 55-199 [facility] Comment on above: Performed By: #### 2 379370 #### [facility] [address] [place] [address] Potassium [Moles/Vol] 5.2 mmol/L Normal 3.5-5.3 [facility] Comment on above: Performed By: #### 2 830950 #### [facility] [address] [place] [address] Protein [Mass/Vol] 7.1 g/dL Normal 6.0-7.8 [facility] Comment on above: Performed By: #### 2 101819 #### [facility] [address] [place] [address] Sodium [Moles/Vol] 137 mmol/L Normal 135-145 [facility] Comment on above: Performed By: #### 2 837141 #### [facility] [address] [place] [address] Urea nitrogen [Mass/Vol] 15 mg/dL Normal 5-21 [facility] Comment on above: Performed By: #### 2 946514 #### [facility] [address] [place] [address] Urea nitrogen/Creatinine [Mass ratio] 14 No Units Normal 10-20 [facility] Comment on above: Performed By: #### 2 343251 #### [facility] [address] [place] [address] HEMATOLOGYOrdered By: SYSTEM SYSTEM on 05-01-2024 Basophils/100 [...] 05-01-2024 Cholesterol [Mass/Vol] 168 mg/dL Normal 120-200 [facility] Comment on above: Performed By: #### 2 046349 #### [facility] [address] [place] [address] Cholesterol in HDL [Mass/Vol] 54 mg/dL Invalid Interpretation Code [facility] Comment on above: Result Comment: '>= 60 LOW RISK' '<= 40 HIGH RISK' Performed By: #### 2 265243 #### [facility] [address] [place] [address] Cholesterol in LDL [Mass/Vol] 99 mg/dL Normal <=129 [facility] Comment on above: Performed By: #### 2 470087 #### [facility] [address] [place] [address] Cholesterol in VLDL [Mass/Vol] 16 mg/dL Normal 7-40 [facility] Comment on above: Performed By: #### 2 424466 #### [facility] [address] [place] [address] Triglyceride [Mass/Vol] 78 mg/dL Normal <=149 [facility] Comment on above: Performed By: #### 2 295177 #### [facility] [address] [place] [address] PSA Screen, Totalon 05-01-20 24 Prostate specific Ag [Mass/Vol] 1.3 ng/mL Normal 0.1-3.5 [facility] Comment on above: Result Comment: The concentration of PSA determined by different manufacturers can vary due to differences in assay methods and reagent specificity. Values obtained from different assay methods cannot be used interchangeably. The methodology used for this result was chemiluminescence using [employer]'s Access Hybritech PSA reagent. Performed By: #### 1 [id number] #### [facility] [address] [place] [address] CHEMISTRYOrdered By: Sara ROP User on 03-26-2024 Glucose [Mass/Vol] 92 mg/dL Normal 55 - 99 mg/dL [facility] POC Subsection Comment on above: Result Comment: Justine garcia RN/ POC Device SN [id number] 1 Invalid Interpretation Code [facility] POC Subsection POC User ID [id number] 1 Invalid Interpretation Code [facility] POC Subsection POC Username LORNA WILSON Invalid Interpretation Code [facility] POC Subsection COAGULATIONOrdered By: Toshia Tadeo on 03-26-2024 aPTT Coag (PPP) [Time] 35.8 s Normal 25.1 - 36.5 second(s) [facility] Auto Coag Comment [...] the same coagulation reagent and instrumentation as [facility]. Currently there are no coagulation studies available worldwide for children to 14 days, and no normal ranges. Heparin therapeutic range (represented by Anti-Factor Xa activity of 0.2 - 0.4 U/mL) corresponds to PTT of 56.6 - 109.0 sec. INR Coag (PPP) [Relative time] 1.19 {INR} Invalid Interpretation Code [facility] Auto Coag Comment on above: Interpretive Data: I NR results are specifically intended to assess patients stabilized on long-term Anticoagulation therapy suggested INR s Less Intensive Anticoagulation 2.0 3.0 Conventional Range 3.0 4.5 PT Coag (PPP) [Time] 13.4 s High 9.4 - 1 2.5 second(s) [facility] Auto Coag Comment [...] ranges were obtained from a study by Jsoe Gomez et al. prepared from 1437 samples obtained at 7 different centers using the same coagulation reagent and instrumentation as [facility]. Currently there are [...] (Bld) [Mass fraction] 5.6 % Normal <=5.9% [facility] ChemAutoSS HEMATOLOGYOrdered By: SYSTEM SYSTEM on 12-01-2023 [...] Normal 80.0 - 100.0 fL Remisol Heme [place] Absolute 0.5 E9/L Normal 0.2 - 1.0 [...] Heme Basic Metabolic Panelon 12-2 Calcium [Mass/Vol] 9.4333819 mg/dL Normal 8.6-10 .3 mg/dL [facility] Other Chloride [Moles/Vol] 102 mmol/L Normal 98-107 mmol/L [facility] Other CO2 [Moles/Vol] 32.09317398 mmol/L High 21.0-3 1.0 mmol/L [facility] Other Creatinine [Mass/Vol] 1.50747339 mg/dL Normal 0. 70-1.30 mg/dL [facility] Other GFR/1.73 sq M.predicted MDRD (S/P/Bld) [Vol rate/Area] mL/min/{1.73_m2} [facility] Other Glucose [Mass/Vol] 93 mg/dL Normal 70-100 mg/dL [facility] Other Potassium [Moles/Vol] 4.44423467 mmol/L Normal 3 .5-5.1 mmol/L [facility] Other Sodium [Moles/Vol] 138 mmol/L Normal 136-145 mmol/L [facility] Other Urea nitrogen [Mass/Vol] 13 mg/dL Normal 7-25 mg/dL [facility] Other Complete Blood Count Auto Di ffon 11-02-2023 Basophils (Bld) [#/Vol] 0.355180337 10*3/uL Normal 0.0-0.2 10*3/uL [facility] Other Basophils/100 WBC (Bld) 1.000 % . % [facility] Other Eosinophils (Bld) [#/Vol] 0.585454836 10*3/uL Normal 0.0-0.45 10*3/uL [facility] Other Eosinophils/100 WBC (Bld) 2.100 % . % [facility] Other Erythrocyte distribution width (RBC) [Ratio] 14.000 % Normal 12.0-14.8 % [facility] Other Hematocrit (Bld) [Volume fraction] 38.800 % Normal 38.8-50.0 % [facility] Other Hemoglobin (Bld) [Mass/Vol] 13.735373 g/dL Normal 13.0-17.0 g/dL [facility] Other Lymphocytes (Bld) [#/Vol] 1.544247301 10*3/uL Normal 1.00-4.8 10*3/uL [facility] Other Lymphocytes/100 WBC (Bld) 21.800 % . % [facility] Other MCH (RBC) [Entitic mass] 31.5000 pg Normal 27.5-35.2 pg [facility] Other MCV (RBC) [Entitic vol] 92.7000 fL Normal 83.5-101 fL [facility] Other Monocytes (Bld) [#/Vol] 0.523281098 10*3/uL Normal 0.0-0.8 10*3/uL [facility] Other Monocytes/100 WBC (Bld) 8.500 % . % [facility] Other Neutrophils (Bld) [#/Vol] 4.430017821 10*3/uL Normal 1.8-7.7 10*3/uL [facility] Other Neutrophils/100 WBC (Bld) 66.600 % . % [facility] Other Platelet mean volume (Bld) [Entitic vol] 9.4000 fL Normal 6.6-10.1 fL [facility] Other Platelets (Bld) [#/Vol] 153 10*3/uL Normal 150-450 10*3/uL [facility] Other RBC (Bld) [#/Vol] 4.19 10*6/uL Normal 3.90-5.60 [facility] Other WBC (Bld) [#/Vol] 6.238627514 10*3/uL Normal 4.1 -10.5 10*3/uL [facility] Other Complete Blood Count Auto Diff 6.1 10*3/uL Normal 4.1-10.5 10*3/uL [facility] Other Complete Blood Count Auto Diff 34.0 g/dL Normal 32.5-35.6 g/dL [facility] Other Complete Blood Count Auto Diff 0.1 /100{WBC} Normal 0-0.5 /100{WBC} [facility] Other Prothrombin Time INRon 06-16 INR Coag (PPP) [Relative time] 2.4 {INR} [facility] Other PT Coag (PPP) [Time] 27.800 s High 9.0-12.9 s [facility] [employer] Other Coding Summaryon 05-12-2020 Coding Summary CODING DATE: 05/12/2020 [facility] STATUS: Home PAYOR: Medicare MC ADMIT DX: [...] Horan Date Saved: 05/12/2020 02:18 pm Normal [facility] ED Clinical Summaryon 2019 ED Clinical Summary [facility] ? Urgent Care [address] [place], [place] [id number] Clinical Summary PERSON INFORMATION Name: DARIEL ZABALA Age: 80 Years Sex: MALE : 1940 MRN: Acct#: Visit Reason: UC - Ear Problem; BILAT EAR PROBLEM Arrival: 05/08/2020 09:32:00 Discharge: 05/08/2020 10:15:00 LOS: 000 00:43 Check In: 05/08/2020 09:32:00 Checkout: 05/08/2020 10:15:00 Address: [place] [address] PCP: Provider, Unlisted PROVIDER INFORMATION Provider Role [...] Buildup, Adult Follow-Up: With: Address: When: [facility], [address] [place] [id number] Business (1) Comments: Please follow-up with your Doctor or Dr. Arellano, Medical Doctor information security systems instructor, call their offices and make ointment to be seen in 3 days or sooner for continued care, please purchase [id number] Debrox which helps breakdown earwax, take all your medications as previously prescribed, drink plenty of water for hydration, and return back to urgent care center for any worsening symptoms, concerns, or complications. DIAGNOSIS: 1:Impacted cerumen of both ears Patient Understands: Yes - Patient/family/careg iver verbalizes understanding of instructions given Comment: Normal [facility] ED Patient Summaryon 020 ED Patient Summary [facility] ? Urgent Care [address] [place] [id number] PATIENT DISCHARGE INSTRUCTIONS Patient Information Name: DARIEL ZABALA Age: 80 Years Date of : 1940 Reason For Visit: UC - Ear Problem; BILAT EAR PROBLEM Arrival Time: 05/08/2020 09:32:00 Primary Care Physician: Provider, Unlisted Attending Physician: Larry Billingsley PA-C Comment: Patient Education With: Address: When: [facility], [address] [phone] Business (1) Comments: Please follow-up with your Doctor or Dr. Arellano, Medical Doctor information security systems instructor, call their offices and make ointment to be seen in 3 days or sooner for continued care, please purchase [id number] Debrox which helps breakdown earwax, take all [...] Follow these instructions at home: ? Take [id number] and prescription medicines only as told by [...] clean them according to instructions from the bill adjuster and your health care provider. Contact a [...] 12/08/2005 Document Revised: 10/12/2018 Document Reviewed: 01/11/2018 [employer] Interactive Patient Education ? 2019 [employer] Medication Information: The exam and treatment you received today in the [facility] Emergency Department were for an urgent problem and are not intended as complete care. It is important for you to follow up with a doctor, nurse practitioner, or physician?s assistant professor nurse education for ongoing care. If your symptoms become [...] so we can reach you if necessary. [facility] Emergency Department has provided you with a complete list of medications post discharge. Please inform your court bailiff or sheriff/provider of your visit and for further instruction [...] both ears (H61.23) UC - Ear Problem ([id number]) If you received any narcotics, sedation, or [...] July 2014 [facility] Patient Handouton 05-08-2020 Patient Handout Patient Education [...] Follow these instructions at home: ? Take jovp-jsg-poxqjjg and prescription medicines only as told by [...] clean them according to instructions from the bill adjuster and your health care provider. Contact a [...] 12/08/2005 Document Revised: 10/12/2018 Document Reviewed: 01/11/2018 [employer] Interactive Patient Education ? 2019 [employer]. Normal [facility] Recordon 020 Urgent Care Record [facility] ? Urgent Care [address] [id number] PATIENT DISCHARGE INSTRUCTIONS Patient Information Name: DARIEL ZABALA Age: 80 Years Date of : 1940 Reason For Visit: UC - Ear Problem; BILAT EAR PROBLEM Arrival Time: 05/08/2020 09:32:00 Primary Care Physician: Provider, Unlisted Attending Physician: Larry Billingsley PA-C Comment: Visit Diagnosis: Diagnoses This Visit Impacted cerumen of both ears (H61.23) UC - Ear Problem ([id number]) If you received any narcotics, sedation, or [...] legal documents With: Address: When: Andréslisa Arellano [facility], [address] [place] [address] Business (1) Comments: Please follow-up with your Doctor or Dr. Arellano, Medical Doctor information security systems instructor, call their offices and make ointment to be seen in 3 days or sooner for continued care, please purchase [id number] Debrox which helps breakdown earwax, take all your medications as previously prescribed, drink plenty of water for hydration, and return back to urgent care center for any worsening symptoms, concerns, or complications. Medication Information: The exam and treatment you received today in the [facility] were for an urgent problem and are not intended as complete care. It is important for you to follow up with a doctor, nurse practitioner, or physician?s assistant professor nurse education for ongoing care. If your symptoms become [...] so we can reach you if necessary. [facility] has provided you with a complete list of medications post discharge. Please inform your court bailiff or sheriff/provider of your visit and for further instruction [...] Follow these instructions at home: ? Take [id number] and prescription medicines only as told by [...] clean them according to instructions from the bill adjuster and your health care provider. Contact a [...] 12/08/2005 Document Revised: 10/12/2018 Document Reviewed: 01/11/2018 [employer] Patient Education ? 2019 [employer] Viruses or Bacteria What?s got you [...] July 2014 [facility] Vital Signs Date Time Vital Sign Value Performing Clinician Facility 07-23-2025 13:28-0400 Body temperature 98.3 [degF] Yanique Españaann [employer] Work Phone: [facility] 07-23-2025 13:28-0400 Diastolic blood pressure 65 mm[Hg] Yanique Reyes [employer] Work Phone: [facility] 07-23-2025 13:28-0400 Heart rate 65 /min Yanique Españaann [employer] Work Phone: [facility] 07-23-2025 13:28-0400 Respiratory rate 18 /min Yanique Reyes TAMPING MACHINE O[employer] Work Phone: [facility] 07-23-2025 13:28-0400 SaO2% (BldA) [Mass fraction] 98 % Yanique Españaann [employer] Work Phone: [facility] 07-23-2025 13:28-0400 Systolic blood pressure 140 mm[Hg] Yanique Reyes TAMPING MACHINE OPER[employer] Work Phone: [facility] 07-23-2025 06:00-0400 Body weight 75.5 kg Yanique Reyes [employer] Work Phone: [facility] 07-22-2025 12:49-0400 Body height 180.34 cm Yanique Mcneill TAMPING MACHINE OPERATOR-BC Work Phone: [facility] 06-23-2025 11:50-0400 Body temperature 97.7 [degF] Erika Crisostomo MD Work Phone: [employer] 06-23-2025 11:50-0400 Diastolic blood pressure 63 mm[Hg] Erika Crisostomo MD Work Phone: [employer] 06-23-2025 11:50-0400 Heart rate 67 /min Erika Crisostomo MD Work Phone: [employer] 06-23-2025 11:50-0400 Respiratory rate 16 /min Erika Crisostomo MD Work Phone: [employer] 06-23-2025 11:50-0400 SaO2% (BldA) [Mass fraction] 99 % Erika Crisostomo MD Work Phone: [employer] 06-23-2025 11:50-0400 Systolic blood pressure 114 mm[Hg] Erika Crisostomo MD Work Phone: [employer] 06-23-2025 04:38-0400 Body mass index (BMI) [Ratio] 22.65 kg/m2 Erika Crisostomo MD Work Phone: [employer] 06-23-2025 04:38-0400 Body weight 71.6 kg Erika Crisostomo MD Work Phone: [employer] 06-19-2025 12:37-0400 Body height 177.8 cm Erika Crisostomo MD Work Phone: [employer] 06-05-2025 15:00-0400 Diastolic blood pressure 47 mm[Hg] Axel Monet DO Work Phone: [employer] 06-05-2025 15:00-0400 Heart rate 71 /min Axel Monet DO Work Phone: [employer] 06-05-2025 15:00-0400 Respiratory rate 15 /min Axel Monet DO Work Phone: [facility] [employer] 06-05-2025 15:00-0400 Systolic blood pressure 110 mm[Hg] [facility] 06-05-2025 13:00-0400 Body temperature 97.7 [degF] Ax[facility] 06-05-2025 06:30-0400 SaO2% (BldA) [Mass fraction] 100 % Axel Monet DO Work Phone: [facility] 06-05-2025 04:00-0400 Body mass index (BMI) [Ratio] 26.48 kg/m2 Axel Monet DO Work Phone: [facility] 06-05-2025 04:00-0400 Body weight 83.7 kg Axel Monet DO Work Phone: [facility] 06-02-2025 10:06-0400 Body height 177.8 cm Axel Monet DO [facility] 11-26-2024 10:27-0500 Body mass index (BMI) [Ratio] 24.74 kg/m2 Emiliano Escamilla MD Work Phone: [facility] 11-26-2024 10:27-0500 Body weight 77.11 kg Emiliano Escamilla MD Work Phone: [facility] 11-26-2024 10:27-0500 Diastolic blood pressure 73 mm[Hg] Emiliano Escamilla MD Work Phone: [facility] 11-26-2024 10:27-0500 Heart rate 87 /min Emiliano Escamilla MD Work Phone: [facility] 11-26-2024 10:27-0500 Systolic blood pressure 148 mm[Hg] Emiliano Escamilla MD Work Phone: [facility] 11-19-2024 14:27-0500 Diastolic blood pressure 82 mm[Hg] Axel Hernández [facility] 11-19-2024 14:27-0500 Heart rate 66 /min Axel Hernández [facility] 11-19-2024 14:27-0500 Mean blood pressure 103 mm[Hg] Axel Edgar [facility] 11-19-2024 14:27-0500 Respiratory rate 18 /min Axel Hernández [facility] 11-19-2024 14:27-0500 SaO2% (BldA) [Mass fraction] 95 % Axel Hernández [facility] 11-19-2024 14:27-0500 Systolic blood pressure 144 mm[Hg] Axel Edgar [facility] 11-19-2024 13:23-0500 Blood Pressure Location Axel Hernández [facility] 11-19-2024 13:23-0500 Body temperature 96.8 [degF] Axel Edgar [facility] 11-19-2024 13:23-0500 Diastolic blood pressure 69 mm[Hg] Axel Edgar [facility] 11-19-2024 13:23-0500 Heart rate 63 /min Axel Edgar [facility] 11-19-2024 13:23-0500 Mean blood pressure 92 mm[Hg] Axel Edgar [facility] 11-19-2024 13:23-0500 Respiratory rate 20 /min Axel Edgar [facility] 11-19-2024 13:23-0500 SaO2% (BldA) [Mass fraction] 99 % Axel Edgar [facility] 11-19-2024 13:23-0500 Systolic blood pressure 139 mm[Hg] Axel Edgar [facility] 11-19-2024 13:05-0500 Body temperature 97.34 [degF] Axel Edgar [facility] 11-19-2024 13:05-0500 Diastolic blood pressure 69 mm[Hg] Axel Edgar [facility] 11-19-2024 13:05-0500 Heart rate 65 /min Axel Edgar [facility] 11-19-2024 13:05-0500 Mean blood pressure 87 mm[Hg] Axel Edgar [facility] 11-19-2024 13:05-0500 Respiratory rate 16 /min Axel Edgar [facility] 11-19-2024 13:05-0500 SaO2% (BldA) [Mass fraction] 97 % Axel Edgar [facility] 11-19-2024 13:05-0500 Systolic blood pressure 122 mm[Hg] Axel Edgar [facility] 11-19-2024 12:40-0500 Body temperature 97.7 [degF] Axel Edgar [facility] 11-19-2024 12:35-0500 Respiratory rate 12 /min Axel Edgar [facility] 11-19-2024 12:30-0500 Body temperature 96.8 [degF] Axel Hernández [facility] 11-19-2024 12:30-0500 Respiratory rate 13 /min Axel Hernández [facility] 11-19-2024 12:25-0500 Body temperature 96.8 [degF] Axel Hernández [facility] 11-19-2024 12:25-0500 Respiratory rate 15 /min Axel Hernández [facility] 11-19-2024 12:20-0500 Body temperature 96.8 [degF] Axel Hernández [facility] 11-19-2024 09:55-0500 Mean blood pressure 85 mm[Hg] Axel Hernández [facility] 11-19-2024 09:52-0500 Mean blood pressure 79 mm[Hg] Axel Hernández [facility] 10-30-2024 10:36-0500 Diastolic blood pressure 67 mm[Hg] Axel Edgar [facility] 10-30-2024 10:36-0500 Heart rate 57 /min Axel Hernández [facility] 10-30-2024 10:36-0500 Mean blood pressure 86 mm[Hg] Axel Hernández [facility] 10-30-2024 10:36-0500 Systolic blood pressure 124 mm[Hg] Axel Hernández [facility] 10-30-2024 10:34-0500 Heart rate 56 /min Axel Hernández [facility] 10-30-2024 10:34-0500 SaO2% (BldA) [Mass fraction] 100 % Axel Hernández [facility] 10-30-2024 10:34-0500 Diastolic blood pressure 83 mm[Hg] Axel Hernández [facility] 10-30-2024 10:34-0500 Mean blood pressure 105 mm[Hg] Axel Hernández [facility] 10-30-2024 10:34-0500 Systolic blood pressure 148 mm[Hg] Axel Hernández [facility] 10-03-2024 10:58-0500 Body height 176.5 cm Axel Hernández DO Work Phone: [facility] 10-03-2024 10:58-0500 Body mass index (BMI) [Ratio] 26.64 kg/m2 Axel Hernández DO Work Phone: [facility] 10-03-2024 10:58-0500 Body temperature 98.1 [degF] Axel Hernández DO Work Phone: [facility] 10-03-2024 10:58-0500 Body weight 83.01 kg Axel Hernández DO Work Phone: [facility] 08-28-2024 14:47-0400 Blood Pressure Location Davie Tristancorriney [facility] 08-28-2024 14:47-0400 Diastolic blood pressure 75 mm[Hg] Davie Hudsonurany [facility] 08-28-2024 14:47-0400 Heart rate 65 /min Davie Acey [facility] 08-28-2024 14:47-0400 Respiratory rate 16 /min Davie Hudsonurany [facility] 08-28-2024 14:47-0400 Systolic blood pressure 119 mm[Hg] Davie Hudsonurany [facility] 06-11-2024 12:48-0400 Diastolic blood pressure 78 mm[Hg] Kashif Kirnus [facility] 06-11-2024 12:48-0400 Heart rate 70 /min Kashif Kirnus [facility] 06-11-2024 12:48-0400 Respiratory rate 18 /min Kashif Kirnus [facility] 06-11-2024 12:48-0400 SaO2% (BldA) [Mass fraction] 97 % Kashif Kirnus [facility] 06-11-2024 12:48-0400 Systolic blood pressure 138 mm[Hg] Kashif Kirnus [facility] 05-30-2024 13:31-0400 Blood Pressure Location Dixon Dubose [facility] 05-30-2024 13:31-0400 Diastolic blood pressure 70 mm[Hg] Dixon Dubose [facility] 05-30-2024 13:31-0400 Heart rate 75 /min Dixon Dubose [facility] 05-30-2024 13:31-0400 Respiratory rate 18 /min Dixon Dubose [facility] 05-30-2024 13:31-0400 SaO2% (BldA) [Mass fraction] 95 % Dixon Dubose [facility] 05-30-2024 13:31-0400 Systolic blood pressure 130 mm[Hg] Dixon Dubose [facility] 04-20-2024 13:17-0400 Diastolic blood pressure 78 mm[Hg] Kashif Kirnus [facility] 04-20-2024 13:17-0400 Heart rate 62 /min Kashif Kirnus [facility] 04-20-2024 13:17-0400 SaO2% (BldA) [Mass fraction] 97 % Kashif Kirnus [facility] 04-20-2024 13:17-0400 Systolic blood pressure 138 mm[Hg] Kashif Kirnus [facility] 03-26-2024 14:30-0400 Diastolic blood pressure 64 mm[Hg] Axel Hernández [facility] 03-26-2024 14:30-0400 Heart rate 50 /min Axel Hernández [facility] 03-26-2024 14:30-0400 Respiratory rate 16 /min Axel Edgar [facility] 03-26-2024 14:30-0400 SaO2% (BldA) [Mass fraction] 98 % Axel Edgar [facility] 03-26-2024 14:30-0400 Systolic blood pressure 128 mm[Hg] Axel Edgar [facility] 03-26-2024 13:31-0400 Heart rate 54 /min Axel Edgar [facility] 03-26-2024 13:31-0400 SaO2% (BldA) [Mass fraction] 97 % Axel Edgar [facility] 03-26-2024 13:31-0400 Respiratory rate 16 /min Axel Edgar [facility] 03-26-2024 13:30-0400 Body temperature 97.34 [degF] Axel Edgar [facility] 03-26-2024 13:29-0400 Blood Pressure Location Axel Edgar [facility] 03-26-2024 13:29-0400 Diastolic blood pressure 70 mm[Hg] Axel Hernández [facility] 03-26-2024 13:29-0400 Mean blood pressure 88 mm[Hg] Axel Hernández [facility] 03-26-2024 13:29-0400 Systolic blood pressure 125 mm[Hg] Axel Hernández [facility] 03-26-2024 13:20-0400 Body temperature 97.52 [degF] Axel Hernández [facility] 03-26-2024 13:20-0400 Diastolic blood pressure 63 mm[Hg] Axel Hernández [facility] 03-26-2024 13:20-0400 Heart rate 54 /min Axel Edgar [facility] 03-26-2024 13:20-0400 Mean blood pressure 77 mm[Hg] Axel Edgar [facility] 03-26-2024 13:20-0400 Respiratory rate 15 /min Axel Edgar [facility] 03-26-2024 13:20-0400 SaO2% (BldA) [Mass fraction] 97 % Axel Edgar [facility] 03-26-2024 13:20-0400 Systolic blood pressure 104 mm[Hg] Axel Hernández [facility] 03-26-2024 13:15-0400 Mean blood pressure 73 mm[Hg] Axel Edgar [facility] 03-26-2024 13:15-0400 Respiratory rate 15 /min Axel Edgar [facility] 03-26-2024 13:10-0400 Mean blood pressure 72 mm[Hg] Axel Edgar [facility] 03-26-2024 13:10-0400 Respiratory rate 11 /min Axel Edgar [facility] 03-26-2024 12:55-0400 Body temperature 97.52 [degF] Axel Hernández [facility] 03-26-2024 12:50-0400 Respiratory rate 1 /min Axel Hernández [facility] 03-26-2024 09:36-0400 Blood Pressure Location Axel Hernández [facility] 03-26-2024 09:36-0400 Mean blood pressure 112 mm[Hg] Axel Hernández [facility] 03-26-2024 09:34-0400 Mean blood pressure 97 mm[Hg] Axel Edgar [facility] 03-26-2024 09:34-0400 Body temperature 97.34 [degF] Axel Edgar [facility] 03-26-2024 09:34-0400 Blood Pressure Location Axel Edgar [facility] 03-26-2024 09:34-0400 Heart rate 50 /min Axel Hernández [facility] 03-06-2024 08:11-0400 Blood Pressure Location Axel Hernández [facility] 03-06-2024 08:11-0400 Diastolic blood pressure 74 mm[Hg] Axel Edgar [facility] 03-06-2024 08:11-0400 Heart rate 56 /min Axel Edgar [facility] 03-06-2024 08:11-0400 Mean blood pressure 98 mm[Hg] Axel Edgar [facility] 03-06-2024 08:11-0400 Systolic blood pressure 147 mm[Hg] Axel Edgar [facility] 03-06-2024 08:11-0400 Heart rate 57 /min Axel Edgar [facility] 03-06-2024 08:11-0400 SaO2% (BldA) [Mass fraction] 98 % Axel Edgar [facility] 03-06-2024 08:10-0400 Blood Pressure Location Axel Edgar [facility] 03-06-2024 08:10-0400 Body temperature 98.06 [degF] Axel Edgar [facility] 03-06-2024 08:10-0400 Diastolic blood pressure 73 mm[Hg] Axel Edgar [facility] 03-06-2024 08:10-0400 Mean blood pressure 92 mm[Hg] Axel Hernández [facility] 03-06-2024 08:10-0400 Systolic blood pressure 129 mm[Hg] Axel Hernández [facility] 03-06-2024 08:10-0400 Respiratory rate 18 /min Axel Hernández [facility] 11-18-2023 11:00-0500 Body height 180.34 cm Jada Rene Other [employer] Other 11-18-2023 11:00-0500 Body mass index (BMI) [Ratio] 25.38 kg/m2 Jada Rene Other [employer] Other 11-18-2023 11:00-0500 Body temperature 97.6 [degF] Jada Rene Other [employer] Other 11-18-2023 11:00-0500 Body weight 82.56 kg Jada Rene Other [employer] Other 11-18-2023 11:00-0500 Diastolic blood pressure 80 mm[Hg] Jada Rene Other [employer] Other 11-18-2023 11:00-0500 Respiratory rate 18 /min Jada Rene Other [employer] Other 11-18-2023 11:00-0500 SaO2% (BldA) [Mass fraction] 99 % Jada Rene Other [employer] Other 11-18-2023 11:00-0500 Systolic blood pressure 132 mm[Hg] Jada Rene Other [employer] Other 11-02-2023 13:00-0500 Body height 180.34 cm Jadaendy Rene Other [employer] Other 11-02-2023 13:00-0500 Body mass index (BMI) [Ratio] 24.4 kg/m2 Jadaendy Rene Other [employer] Other 11-02-2023 13:00-0500 Body weight 79.38 kg Jadaendy Rene Other [employer] Other 11-02-2023 13:00-0500 Diastolic blood pressure 82 mm[Hg] Jadamary Rene Other [employer] Other 11-02-2023 13:00-0500 Respiratory rate 18 /min Jadamary Rene Other [employer] Other 11-02-2023 13:00-0500 SaO2% (BldA) [Mass fraction] 97 % Jadamary Rene Other [employer] Other 11-02-2023 13:00-0500 Systolic blood pressure 138 mm[Hg] Jada Edgard Other [employer] Other 09-21-2023 10:00-0500 Body height 180.34 cm Jadaendy Rene Other [employer] Other 09-21-2023 10:00-0500 Body mass index (BMI) [Ratio] 25.81 kg/m2 Jadaendy Rene Other [employer] Other 09-21-2023 10:00-0500 Body weight 83.96 kg Jada Rene Other [employer] Other 09-21-2023 10:00-0500 Diastolic blood pressure 70 mm[Hg] Jada Rene Other [employer] Other 09-21-2023 10:00-0500 Respiratory rate 18 /min Jada Rene Other [employer] Other 09-21-2023 10:00-0500 SaO2% (BldA) [Mass fraction] 98 % Jada Rene Other [employer] Other 09-21-2023 10:00-0500 Systolic blood pressure 140 mm[Hg] Jada Rene Other [employer] Other 06-16-2023 11:00-0400 Body height 180.34 cm Jada Rene Other [employer] Other 06-16-2023 11:00-0400 Body mass index (BMI) [Ratio] 23.79 kg/m2 Jada Rene Other [employer] Other 06-16-2023 11:00-0400 Body weight 77.38 kg Jada Rene Other [employer] Other 06-16-2023 11:00-0400 Diastolic blood pressure 64 mm[Hg] Jada Rene Other [employer] Other 06-16-2023 11:00-0400 Respiratory rate 18 /min Jada Rene Other [employer] Other 06-16-2023 11:00-0400 SaO2% (BldA) [Mass fraction] 98 % Jada Rene Other [employer] Other 06-16-2023 11:00-0400 Systolic blood pressure 118 mm[Hg] Jadaendy Rene Other [employer] Other Encounters Encounter Date Encounter Type Care Provider Facility Start: 05-13-2026 ambulatory YANIQUE A REYES Facili ty:[facility] [place] Start: 08-08-2025 ambulatory YANIQUE A REYES Facili ty:[facility] [place] Start: 08-05-2025 ambulatory YANIQUE REYES Facility :CD:[id number] Start: 07-31-2025 ambulatory Zechariah CREWS Facility : [place] Start: 07-25-2025 End: 07-25-2025 ambulatory YANIQUE A REYES Facility:[facility] [place] Start: 07-24-2025 ambulatory YANIQUE REYES Facility : [place] Start: 07-24-2025 End: 07-31-2025 ambulatory YANIQUE A REYES Facility:CD:[id number] Start: 07-22-2025 End: 07-22-2025 External Result [...] 07-19-2025 Non-patient / Non-visit Axel marshall MD -[facility] Work Phone: Start: 07-19-2025 End: 07-23-2025 Evaluation and management of inpatient Mohamad Billy Facility:[facility] Start: 07-11-2025 End: 07-11-2025 ambulatory YANIQUE A REYES Facility:[facility] Start: 07-08-2025 End: 07-08-2025 ambulatory Jaden Maravilla Facility:[facility] [place] Start: 07-05-2025 End: 07-22-2025 ambulatory YANIQUE A REYES Facility:CD:[id number] Start: 07-04-2025 End: 07-04-2025 ambulatory YANIQUE A REYES Facility:[facility] [place] Start: 06-19-2025 ambulatory YANIQUE A REYES Facili ty: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 [place] Start: 06-07-2025 End: 06-13-2025 ambulatory YANIQUE A REYES Facility:CD:[id number] Start: 06-07-2025 End: 06-07-2025 ambulatory YANIQUE A REYES Facility:[facility] [place] Start: 06-02-2025 End: 06-05-2025 Evaluation and management of inpatient Axel Monet DO Work Phone: [facility] Comment on above: Hyponatremia (Primar y Dx) Start: 05-20-2025 End: 05-20-2025 Lab Drop off YANIQUE A REYES [facility] Start: 05-20-2025 End: 05-20-2025 ambulatory YANIQUE MCNEILL Facility:[facility] Start: 05-09-2025 End: 05-09-2025 ambulatory Edwin Garcia Facility:[facility] [place] Start: 02-05-2025 End: 02-06-2025 Lab Drop off Edwin Garcia [facility] Start: 02-05-2025 End: 02-06-2025 ambulatory Edwin Garcia Facility:[facility] Start: 01-24-2025 End: 01-24-2025 Lab Drop off Edwin Garcia [facility] Start: 01-24-2025 End: 01-24-2025 ambulatory Edwin Garcia Facility:[facility] Start: 01-09-2025 End: 01-09-2025 Lab Drop off Edwin Garcia [facility] Start: 01-09-2025 End: 01-09-2025 ambulatory MD Edwin Garcia Facility:[facility] Start: 12-31-2024 End: 12-31-2024 Lab Drop off Edwin Garcia [facility] Start: 12-31-2024 End: 12-31-2024 ambulatory MD Edwin Garcia Facility:[facility] [place] Start: 12-24-2024 End: 12-24-2024 ambulatory Edwin Garcia Facility:[facility] [place] Start: 12-17-2024 End: 12-17-2024 Lab Drop off Edwin Garcia [facility] Start: 12-17-2024 End: 12-17-2024 ambulatory Edwin Garcia Facility:[facility] Start: 12-17-2024 End: 01-22-2025 ambulatory Edwin Garcia Facility:CD:[id number] Start: 11-28-2024 End: 11-28-2024 Bamboo flowsheet Jose L Chow [employer] Work Phone: [facility] Start: 11-28-2024 End: 11-28-2024 Bamboo flowsheet Jose L Chow [employer] Work Phone: [facility] Start: 11-28-2024 End: 11-28-2024 Postop follow up visit related to original px Jose L Chow [employer] Work Phone: [facility] Comment on [...] to same day surgery center Axel Hernández [facility] Start: 11-19-2024 End: 11-19-2024 ambulatory Axel Hernández Facility:[facility] Start: 11-13-2024 ambulatory Edwin Garcia Facility :[facility] [place] Start: 11-12-2024 End: 11-12-2024 Lab Drop off Edwin Garcia [facility] Start: 11-12-2024 End: 11-12-2024 ambulatory Edwin Garcia Facility:[facility] Start: 11-01-2024 End: 11-01-2024 ambulatory Edwin Garcia Facility:[facility] [place] Start: 10-30-2024 End: 10-30-2024 ambulatory Axel Hernández Facility:[facility] Start: 10-30-2024 End: 10-30-2024 Patient encounter procedure Axel Hernández [facility] Start: 10-03-2024 End: 10-03-2024 Bamboo flowsheet [...] Farrell MD Work Phone: [facility] Start: 09-28-2024 End: 09-28-2024 [...] Start: 09-10-2024 End: 09-10-2024 ambulatory Edwin Garcia Facility:[facility] [place] Start: 08-28-2024 End: 08-28-2024 ambulatory Davie Vargas Facility:[facility] Start: 08-28-2024 End: 08-28-2024 Patient encounter procedure Davie Vargas [facility] [place] Start: 08-20-2024 End: 08-20-2024 Telephone encounter Shala Farrell MD Work Phone: [facility] 111 Start: 08-13-2024 End: 08-13-2024 ambulatory Nathaniel Bonilla MD Facility: [place] Start: 08-07-2024 End: 08-07-2024 ambulatory Edwin Garcia Facility: [facility] [place] Start: 07-31-2024 End: 07-31-2024 ambulatory Edwin Garcia Facility: [facility] [place] Start: 07-24-2024 End: 07-24-2024 ambulatory Edwin Garcia Facility: [facility] [place] Start: 07-23-2024 ambulatory Edwin Garcia Facility :[facility] Start: 07-05-2024 ambulatory [facility] Start: 07-03-2024 End: 07-03-2024 ambulatory Edwin Garcia Facility: [facility] [place] Start: 06-20-2024 End: 06-20-2024 ambulatory AXEL HERNÁNDEZ Not Available Start: 06-11-2024 End: 06-11-2024 ambulatory XXXX NONE Facility:[facility] Start: 06-11-2024 End: 06-11-2024 Patient encounter procedure Kashif Barnett [facility] Start: 05-30-2024 End: 05-30-2024 ambulatory Edwin Garcia Facility:[facility] Start: 05-30-2024 End: 05-30-2024 Patient encounter procedure Dixon Endy Gracy [facility] Start: 05-21-2024 End: 05-21-2024 Patient encounter procedure Kashif Costaromina [facility] Start: 05-01-2024 End: 05-01-2024 Patient encounter procedure Kashif Costaromina [facility] Start: 05-01-2024 End: 05-01-2024 Lab Drop off Edwin Garcia [facility] Start: 04-20-2024 End: 04-20-2024 Patient encounter procedure Kashif Hazel Costaromina [facility] Start: 04-04-2024 End: 04-04-2024 ambulatory AXEL HERNÁNDEZ Not Available Start: 03-26-2024 End: 03-26-2024 Admission to same day surgery center Axel Hernández [facility] Start: 03-06-2024 End: 03-06-2024 Patient encounter procedure Axel Hernández [facility] Start: 02-15-2024 End: 02-15-2024 ambulatory AXEL HERNÁNDEZ Not Available Start: 02-15-2024 End: 02-15-2024 ambulatory AXEL HERNÁNDEZ Not Available Start: 12-06-2023 End: 12-06-2023 ambulatory Jadaendy Rene Other [employer] Other Start: 12-06-2023 Telephone encounter Jada Rene [facility] [place] Start: 12-02-2023 End: 12-02-2023 ambulatory Jadaendy Rene Other [facility] [employer] Other Start: 12-02-2023 Telephone encounter Jada Rene [facility] [place] Start: 12-01-2023 End: 12-01-2023 Lab Drop off Edwin GarnerShanna Adam [facility] Start: 11-18-2023 End: 11-18-2023 ambulatory Jadaendy Rene Other [facility] Other Start: 11-18-2023 Office outpatient vi sit 25 minutes Jadamary Rene [facility] [place] Start: 11-02-2023 End: 11-02-2023 ambulatory Jadaendy Rene Other [facility] Other Start: 11-02-2023 Office outpatient vi sit 25 minutes Jada Rene [facility] [place] Start: 11-02-2023 Telephone encounter Jada Rene [facility] [place] Start: 10-28-2023 End: 10-28-2023 ambulatory Jadaendy Rene Other [facility] Other Start: 10-28-2023 Telephone encounter Jada Rene [facility] [place] Start: 09-30-2023 End: 09-30-2023 Nurse Triage Venessa Riggins RN NURSE ARCHITECTURAL REPRESENTATIVE Comment on above: Refill Request Start: 09-30-2023 Telephone encounter Jada Rene [facility] [place] Start: 09-21-2023 End: 09-21-2023 ambulatory Jadaendy Rene Other [facility] Other Start: 09-21-2023 Office outpatient vi sit 25 minutes Jadamary Rene [facility] [place] Start: 08-29-2023 End: 08-29-2023 ambulatory Jada Edgard Other [facility] Other Start: 08-29-2023 Telephone encounter Jadaendy Rene [facility] [place] Start: 08-26-2023 End: 08-26-2023 ambulatory Jada Rene Other [facility] Other Start: 08-26-2023 Telephone encounter Jadaendy Rene [facility] [place] Start: 08-08-2023 End: 08-08-2023 ambulatory Jada Rene Other [facility] Other Start: 08-08-2023 Telephone encounter Jadaendy Rene [facility] [place] Start: 07-27-2023 End: 07-27-2023 ambulatory Jada Edgard Other [facility] Other Start: 07-27-2023 Telephone encounter Jadaendy Rene [facility] [place] Start: 06-16-2023 End: 06-16-2023 ambulatory Jadaendy Rene Other [facility] Other Start: 06-16-2023 Office outpatient ne w 45 minutes Jadamary Rene [facility] [place] Start: 06-16-2023 Telephone encounter Jadaendy Rene [facility] [place] Procedures Date Procedure Procedure Detail Performing Clinician [...] TO MG FOR LOW K Adore Cueto IRRIGATION INSTALLATION SPECIALIST - PARTS CLERK [employer] Work Phone: Start: 06-03-2025 End: 06-04-2025 Prothrombin time Adore Cueto IRRIGATION INSTALLATION SPECIALIST - PARTS CLERK [employer] Work Phone: Start: 06-02-2025 Glucose blood reagen t strip Brigida Valeriano Pina DO Work Phone: Start: 06-02-2025 Glucose blood reagen t strip Brigida J Orlop DO Work Phone: Start: 06-02-2025 BASIC METABOLIC PANE L W/ REFLEX TO MG FOR LOW K Leelee Easley IRRIGATION INSTALLATION SPECIALIST - GLOBAL PROCESS OWNER Work Phone: Start: 06-02-2025 End: 06-02-2025 Prothrombin time Leelee Easley IRRIGATION INSTALLATION SPECIALIST - GLOBAL PROCESS OWNER Work Phone: Start: 11-19-2024 [facility] CAP[facility] GLUCO SE POC Axel Hernández DO Work Phone: Start: 11-19-2024 Decompression of med carlos nerve Axel Hernándze Start: 03-26-2024 Decompression of med carlos nerve [...] (Diabetes, CKD 3-4, OR last GFR 15-59) [facility] Start: 07-23-2025 [facility] Start: 07-22-2025 Referral to urologist [facility] Start: 07-20-2025 Administration of prophylactic treatment [facility] Start: 07-20-2025 Referral to general surgeon [facility] Start: 07-19-2025 Hospital admission [facility] Start: 07-19-2025 Referral to infectio us diseases physician [facility] Start: 07-19-2025 [facility] Start: 07-15-2025 Influenza vaccination Influenza Vacc ine (#1) [facility] Start: 06-14-2025 Influenza vaccination [facility] Start: 06-12-2025 End: 06-05-2026 Basic metabolic 2000 panel - Serum or Plasma Basic Metabolic Panel Lab Routine Hyponatremia Expected: 06/12/2025, Expires: 06/05/2026 [facility] Comment on above: Expected: 06/12/2025 , Expires: 06/05/2026 Start: 03-29-2025 COVID-19 Vaccine ( season) COVID-19 Vaccine ( season) [employer] Start: 12-26-2024 End: 12-26-2024 Patient encounter procedure 12/26/2024 1:45 PM EST Office Visit [facility] [address] [place] [address] Jose L Chow, PARTS CLERK [employer] [address] [place], [place] [id number] [facility] Start: 11-28-2024 End: 11-28-2024 Patient encounter procedure [facility] Comment on above: Arrived Start: 11-26-2024 End: 11-26-2024 Patient encounter procedure 11/26/2024 10:30 AM EST Office Visit [facility] [address] [place] [address] Emiliano Escamilla MD [address] [facility] [address] [place], [place] [id number] Arrived [facility] Comment on above: Arrived Start: 11-14-2024 Annual Wellness Visi t (Medicare Advantage) Annual Wellness Visit (Medicare Advantage) [facility] Start: 10-03-2024 End: 10-03-2025 ECG 12 lead ECG 12 lead ECG Routine Pre-op testing Expected: 10/03/2024 (Approximate), Expires: 10/03/2025 [facility] Work Phone: Comment on above: Expected: 10/03/2024 (Approximate), Expires: 10/03/2025 Start: 10-03-2024 End: 10-03-2024 Patient encounter procedure 10/03/2024 10:45 AM EST Office [facility] [address] [facility] [address] [place] [address] Axel Hernández, [address] [place] [address] Right hand pain (Primary Dx); Arm weakness [facility] Comment on above: Right hand pain (Holly ayaan Dx); Arm weakness Start: 07-15-2024 Influenza vaccination Influenza Vacc ine (#1) [facility] Start: 07-15-2023 Influenza vaccination Influenza Vacc ine (#1) [facility] Start: 01-01-2023 Advance Directive Discussion Advance Directive Discussion [facility] Start: 11-14-2022 Depression Assessment Depression Ass essment [facility] Start: 2017 Respiratory Syncytia l Virus (RSV) or age 60 yrs+ (1 - 1-dose 75+ series) Respiratory Syncytial Virus (RSV) or age 60 yrs+ (1 - 1-dose 75+ series) [facility] Start: 03-31-2016 Pneumococcal Vaccine : 65+ (2 - PPSV23 or PCV20) Pneumococcal Vaccine: 65+ (2 - PPSV23 or PCV20) [facility] Start: 03-31-2016 Pneumococcal Vaccine : 65+ Years (2 of 2 - PPSV23 or PCV20) Pneumococcal Vaccine: 65+ Years (2 of 2 - PPSV23 or PCV20) [facility] Start: 03-24-2016 Hepatitis B surface antibody level LDL Cholesterol [facility] Start: 09-24-2015 Hemoglobin A1c/Hemoglobin.total in Blood HbA1C [facility] Start: 08-01-2015 3 comp foot exam completed Diabetic Foot Exam [facility] Start: 07-25-2015 Hepatitis B screening Urine Albumin:Creatinine Ratio [facility] Start: 02-01-2015 Urine microalbumin profile DTaP,Tdap,Td Vaccine (1 - Tdap) [facility] Start: 10-24-2013 Shingles vaccine (2 of 3) Keyes gles vaccine (2 of 3) [facility] Start: 10-24-2013 Shingrix Vaccine (2 of 3) Keyes grix Vaccine (2 of 3) [facility] Start: 09-14-2012 Hepatitis C antibody , confirmatory test Dilated Retinal Exam [facility] Start: 2002 RSV Vaccine (1 - 1-d ose 60+ series) RSV Vaccine (1 - 1-dose 60+ series) [facility] Start: 1961 DTaP/Tdap/Td vaccine (1 - Tdap) DTaP/Tdap/Td vaccine (1 - Tdap) [facility] Start: 1960 Urine screening for protein Diabetic Alb to Cr ratio (uACR) test [facility] Start: 1954 Depression Screen Depression Screen [facility] Start: 1952 Lipid panel Lipids [facility] Start: 1942 Covid-19 Vaccine (#1) Covid-19 Vacci ne (#1) [facility] End: 06-19-2025 Baseline Routine EEG Baseline Routine EEG Neurology Routine Once for 1 Occurrences starting 06/19/2025 until 06/19/2025 [employer] Comment on above: Once for 1 Occurrenc es starting 06/19/2025 until 06/19/2025 End: 06-13-2025 Basic metabolic 2000 panel - Serum or Plasma Basic Metabolic Panel Lab Routine Tomorrow AM for 10 Occurrences starting 06/04/2025 until 06/13/2025, 1 completed [facility] Comment on above: Tomorrow AM for 10 O ccurrences starting 06/04/2025 until 06/13/2025, 1 completed Basic metabolic 2000 panel - Serum or Plasma Basic Metabolic Panel Lab Routine Lab max of 3 days, Daily, for lab use only until discontinued starting 06/18/2025, 6 completed [employer] Comment on above: Lab max of 3 days, D aily, for lab use only until discontinued starting 06/18/2025, 6 completed End: 06-25-2025 Blood count hemoglobin Hemoglobin Lab Routine Every Other Day for 3 Days starting 06/23/2025 until 06/25/2025 [employer] Comment on above: Every Other Day for 3 Days starting 06/23/2025 until 06/25/2025 CBC W Auto Different ial panel - Blood CBC auto differential Lab Routine Lab max of 3 days, Daily, for lab use only until discontinued starting 06/17/2025, 7 completed [employer] Comment on above: Lab max of 3 days, D aily, for lab use only until discontinued starting 06/17/2025, 7 completed Continuous pulse oximetry Pulse oximetry, continuous Respiratory Care Routine Every 4hr until discontinued starting 06/02/2025 [facility] Comment on above: Every 4hr until disc ontinued starting 06/02/2025 End: 06-08-2025 Electrolyte Panel Electrolyte Panel Lab Routine Every 8 Hours (Lab) for 3 Days starting 06/05/2025 until 06/08/2025, 1 completed [facility] Work Phone: Comment on above: Every 8 Hours (Lab) for 3 Days starting 06/05/2025 until 06/08/2025, 1 completed End: 06-25-2025 Electrolyte panel Electrolyte panel Lab Routine Lab max of 3 days, Every 8hr, lab use only for 3 Days starting 06/22/2025 until 06/25/2025, 2 completed [employer] Work Phone: Comment on above: Lab max of 3 days, E very 8hr, lab use only for 3 Days starting 06/22/2025 until 06/25/2025, 2 completed Glucose [Mass/volume ] in Serum or Plasma [facility] Comment on above: As Needed until disc ontinued starting 06/02/2025 4X Daily (AC & HS) u ntil discontinued starting 06/02/2025 End: 06-23-2025 Holter monitor study EEG Video Monitoring Daily Neurology Routine Lab max of 3 days, Daily, for lab use only for 5 Occurrences starting 06/19/2025 until 06/23/2025, 1 completed [employer] Comment on above: Lab max of 3 days, D aily, for lab use only for 5 Occurrences starting 06/19/2025 until 06/23/2025, 1 completed Holter monitor study EEG Video M onitoring Daily Neurology Routine 06/20/2025 6:06 PM EDT [employer] Magnesium [Mass/volu me] in Serum or Plasma Magnesium Lab Routine Lab max of 3 days, Daily, for lab use only until discontinued starting 06/23/2025, 1 completed [employer] Comment on above: Lab max of 3 days, D aily, for lab use only until discontinued starting 06/23/2025, 1 completed End: 06-23-2025 Magnesium [Mass/volume] in Serum or Plasma Magnesium Lab Routine Once for 1 Occurrences starting 06/23/2025 until 06/23/2025 [employer] Work Phone: Comment on above: Once for 1 Occurrenc es starting 06/23/2025 until 06/23/2025 Nasal Cannula Oxygen Nasal Cannu la Oxygen Respiratory Care Routine Daily until discontinued starting 06/05/2025 [facility] Comment on above: Daily until disconti nued starting 06/05/2025 Oxygen Therapy - Carly ntain SpO2: 90%; *STOCK TRACER Guidelines for O2: Yes; Document: \phsi.promedica.[employer]\epic \EPIC_Reference\Orders\Re spiratory Care Guidelines\CPG Oxygen 2022.pdf Oxygen Therapy - Maintain SpO2: 90%; *STOCK TRACER Guidelines for O2: Yes; Document: \ZIRX.[employer]\e pic\EPIC_Reference\Ord ers\Respiratory Care Guidelines\CPG Oxygen 2022.pdf Respiratory Care Routine As Needed until discontinued starting 06/17/2025 [employer] Work Phone: Comment on above: As Needed until disc ontinued starting 06/17/2025 Oxygen therapy [[facility] Data Set] Initiate Oxygen Therapy Protocol Respiratory Care Routine As Needed until discontinued starting 06/02/2025 [employer] Work Phone: Comment on above: As Needed until disc ontinued starting 06/02/2025 Patient Education Low-fiber diet Know your Meds [facility] Work Phone: Patient referral [facility] Work Phone: End: 06-24-2025 Platelets [#/volume] in Blood Platelet count Lab Routine Every Third Day for 3 Days starting 06/24/2025 until 06/24/2025 [employer] Comment on above: Every Third Day for 3 Days starting 06/24/2025 until 06/24/2025 Protime & INR Protime & INR La b Routine Daily until discontinued starting 06/19/2025, 4 completed [employer] Comment on above: Daily until disconti nued starting 06/19/2025, 4 completed End: 06-12-2025 Protime-INR Protime-INR Lab Routine Daily for 8 Days starting 06/05/2025 until 06/12/2025, 1 completed [facility] Comment on above: Daily for 8 Days sta rting 06/05/2025 until 06/12/2025, 1 completed End: 06-02-2025 Respiratory care evaluation only Respiratory care evaluation only Respiratory Care Routine One Time for 1 Occurrences starting 06/02/2025 until 06/02/2025 [facility] Comment on above: One Time for 1 Occur rences starting 06/02/2025 until 06/02/2025 [facility] Immunizations Immunization Date Immunization Notes Care Provider [facility] 09-29-2024 influenza, high dose seasonal, preservative-free Erika Crisostomo MD Work Phone: [facility] 09-29-2024 influenza virus vaccine, unspecified formulation Axel Hernández DO Work Phone: [facility] 09-21-2023 Prevnar 20 Jada Rene Other [facility] 08-19-2023 Covid-19, Mrna, Lnp- s, Pf,brigette-sucrose,30 Mcg/0.3ml Seasonal Erika Crisostomo MD Work Phone: [facility] 08-19-2023 Flu Shot - Documentation Purposes Only Jadaendy Rene Other [facility] Other 08-19-2023 influenza virus vaccine, unspecified formulation Edwni Garcia [facility] 08-14-2022 influenza, seasonal, injectable Jadaendy Rene Other [facility] 03-31-2021 Influenza, High-dose , Quadrivalent Erika Crisostomo MD Work Phone: [facility] 03-31-2015 pneumococcal conjuga te vaccine, 13 valent Jada Rene Other [facility] 08-02-2014 influenza, high dose seasonal, preservative-free Venessa Riggins RN [facility] 08-02-2014 influenza virus vaccine, unspecified formulation Venessa Riggins RN [facility] 08-29-2013 zoster vaccine, live Venessa terrell RN [facility] 08-09-2013 influenza virus vaccine, unspecified formulation Venessa Riggins RN [facility] 07-31-2012 influenza virus vaccine, unspecified formulation Venessa Riggins RN [facility] Work Phone: 03-07-2012 TD(adult) unspecifie d formulation Erika Crisostomo MD Work Phone: [employer] 03-07-2012 tetanus and diphther ia toxoids, adsorbed, preservative free, for adult use (2 Lf of tetanus toxoid and 2 Lf of diphtheria toxoid) Venessa Riggins RN [facility] Work Phone: 08-07-2011 influenza virus vaccine, unspecified formulation Venessa Riggins RN [facility] Work Phone: NEGATED: Highlighted row has not occurred!08-28-2024 influenza virus vaccine, unspecified formulation Davie Hudsonanahi [facility] [place] Payers Date Payer Category Payer Medicare [id number] 2025 Self-pay 2025 Private Health Insurance [id number] 2025 Medicaid AETNA MEDICARE A DVANTAGE [id number] 2025 Medicare HMO [employer] MEDICARE [id number] 2025 Private Health Insurance [id number] 2023 Medicare (Managed Care) [employer] [id number] 2023 Unknown [employer] [facility] [id number] 2023-Present [address] [place] [id number] [id number]. [id number] 2023 Unknown [id number] 2.16.840.1.139493.19 2023 Medicare [id number]. 1.13.159.2. [id number] 1942 Unknown [id number] 2.16.840.1.285293.3.579.2. 196 1942 Unknown [id number] 2.16.840.1.973070.3.579.2. 727 1942 Unknown [id number] 2.16.840.1.828751.3.579.2. 727 1942 Unknown [id number] 2.16.840.1.746357.3.579.2. 727 1942 Unknown [id number] 2.16.840.1.952552.3.579.2. 727 1942 Unknown [id number] 2.16.840.1.076516.3.579.2. 1259 1942 Unknown [id number] 2.16.840.1.534380.3.579.2. 1258 1942 Unknown [id number] 2.16.840.1.455266.3.579.2. 1258 1942 Unknown [id number] 2.16.840.1.173335.3.579.2. 1258 1942 Unknown [id number] 2.16.840.1.909757.3.579.2. 1258 1942 Unknown [id number] 2.16.840.1.595710.3.579.2. 1258 1942 Unknown [id number] 2.16.840.1.371617.3.579.2. 1258 1942 Unknown [id number] 2.16.840.1.988855.3.579.2. 1258 1942 Unknown [id number] 2.16.840.1.519948.3.579.2. 1258 1942 Unknown [id number] 2.16.840.1.311491.3.579.2. 1942 Unknown [id number] 2.16.840.1.033991.3.579.2. 1942 Unknown [id number] 2.16.840.1.153704.3.579.2. 1942 Unknown [id number] 2.16.840.1.882244.3.579.2 1942 Unknown [id number] 2.16.840.1.289336.3.579.2. 1942 Unknown [id number] 2.16.840.1.280579.3.579.2 1942 Unknown [id number] 2.16.840.1.369646.3.579.2. 1942 Unknown [id number] 2.16.840.1.377698.3.579.2. 727 1942 Unknown [id number] 2.16.840.1.652974.3.579.2. 72 1942 Unknown [id number] 2.16.840.1.775055.3.579.2. 72 1942 Unknown [id number] 2.16.840.1.531579.3.579.2. 72 1942 Unknown [id number] 2.16.840.1.515005.3.579.2. 72 1942 Unknown [id number] 2.16.840.1.042790.3.579.2. 1942 Unknown [id number] 2.16.840.1.818464.3.579.2. 1942 Unknown [id number] 2.16.840.1.755866.3.579.2. 1942 Unknown [id number] 2.16.840.1.188490.3.579.2. 1942 Unknown [id number] 2.16.840.1.992894.3.579.2. 1942 Unknown [id number] 2.16.840.1.816872.3.579.2. 175 1942 Unknown [id number] 2.16.840.1.076637.3.579.2. 72 1942 Unknown [id number] 2.16.840.1.294457.3.579.2. 72 1942 Unknown [id number] 2.16.840.1.968213.3.579.2. 1942 Unknown [id number] 2.16.840.1.164390.3.579.2. 72 1942 Unknown [id number] 2.16.840.1.695091.3.579.2. 72 1942 Unknown [id number] 2.16.840.1.708769.3.579.2. 72 1942 Unknown [id number] 2.16.840.1.133464.3.579.2. 1942 Unknown [id number] 2.16.840.1.794170.3.579.2. 1942 Unknown [id number] 2.16.840.1.898067.3.579.2. 1942 Unknown [id number] 2.16.840.1.081933.3.579.2. 1942 Unknown [id number] 2.16.840.1.702803.3.579.2. 1942 Unknown [id number] 2.16.840.1.594185.3.579.2. 1942 Unknown [id number] 2.16.840.1.365967.3.579.2. 1942 Unknown [id number] 2.16.840.1.617108.3.579.2. 1942 Unknown [id number] 2.16.840.1.856678.3.579.2. 1942 Unknown [id number] 2.16.840.1.451133.3.579.2. 1942 Unknown [id number] 2.16.840.1.156491.3.579.2. 1942 Unknown [id number] 2.16.840.1.693927.3.579.2. 1942 Unknown [id number] 2.16.840.1.526501.3.579.2. 1942 Unknown [id number] 2.16.840.1.594629.3.579.2. 1942 Unknown [id number] 2.16.840.1.680270.3.579.2. 727 1942 Unknown [id number] 2.16.840.1.814318.3.579.2. 727 1942 Unknown [id number] 2.16.840.1.432261.3.579.2. 727 1942 Unknown [id number] 2.16.840.1.640125.3.579.2. 727 1942 Unknown [id number] 2.16.840.1.720190.3.579.2. 727 Medicare [id number] 2.16.840.1.714417.19 Medicare [id number] 2.16.840.1.803133.19 Unknown [id number] 2.16.840.1.167506.3.579.2. 531 Social History Date Type Detail Facility Start: 06-20-2024 End: 11-28-2024 Sex Assigned At [facility] Start: 12-01-2023 End: 07-22-2025 Tobacco smoking status ARIS Never smoked tobacco [facility] Comment on above: denies use. Start: 06-28-2022 Alcohol intake Current drinke r of alcohol (finding) [facility] Start: 06-28-2022 End: 11-28-2024 Alcohol intake [facility] Start: 1940 Sex Assigned At Not on file [facility] Tobacco smoking status Never [facility] [place] Comment on above: denies use. Start: 02-15-2024 End: 06-17-2025 Tobacco use and exposure Smokeless tobacco non-user [facility] Sexual Orientation [facility] Start: 03-27-2015 End: 08-22-2023 Sex Male (finding) [facility] Start: 06-02-2025 Alcoholic beverage intake Lifetime non-drinker (finding) [facility] Has the [employer], [employer], or [employer] threatened to shut off services in your home in past 12Mo No [place] (I/We) worried wheshaheen er (my/our) food would run out before (I/we) got money to buy more. Never true [facility] Start: 06-17-2025 Alcoholic beverage intake Ex-drinker (finding) [facility] How often to you hav e a drink containing alcohol? Never [facility] Start: 1940 Sex Assigned At Male F [facility] Start: 07-22-2025 SDOH Follow up SDOH Follow up [facility] Work Phone: Medical Equipment Procedure Code [...] Evaluation of progress towards goal: Home with [facility] Functional Status Date Assessment Result Facility 06-17-2025 Total score [AUDIT-C] 0 06/17/20 25 4:54 PM EDT Monico Cuellar, ERIN [facility] 10-30-2024 Functional Status No [facility] 08-28-2024 Functional Status N/A [facility] [place] 06-11-2024 Functional Status N/A [facility] 05-30-2024 Functional Status No [facility] 04-20-2024 Functional Status N/A [facility] 03-06-2024 Functional Status No [facility] Mental Status Date Assessment Result Facility [facility] Clinical [...] these instructions at home: Medicines ??? Take bned-syk-eoyasjs and prescription medicines only as told by [...] away. Get medica (more content not included)... 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 Biking. ? Swimming. Medicines ??? Take mhjj-mzo-ufxlwzr and prescription medicines only as told by your doctor. ??? Avoid taking control pills. Talk to your doctor about the risks of taking control pills if: ? You are over 35 years old. ? You smoke. ? You get very bad headaches. ? You have had a blood clot. Where to find more information ??? [place] [employer] Association: www.strokeassociation.org Get help right [...] what people say. ? (more content not included)...[facility]08-21-2025 Note Patient Education Nephrology Hyponatremia Hyponatremia [...] Follow these instructions at home: ??? Take siin-ube-ftjipub and prescription medicines only as told by [...] provider. Document Revised: 05/11/2022 Document Reviewed: 05/11/2022 MaPS Patient Education ? 2023 [employer] Art Commission.[facility] 06-23-2025 Nurse Note* Debra Huggins RN - 06/23/2025 3:01 PM EDT Patient discharged to the [facility] at this time. Report called and questions addressed. PIV and tele discontinued. All personal belongings packed and left with patient. Report given to transport as well. No other concerns at this time. Left on stretcher [facility]08-10-2025 Nurse Note* Debra Huggins RN - 06/23/2025 3:01 PM EDT Patient discharged to the [facility] at this time. Report called [...] Notified ofQT from EKG done 06/17 at [place]. [facility] Plan of care note * Plan of Care - Debra Huggins RN - 06/23/2025 11:02 AM EDT Problem: Pain Goal: Patient goal is pain score less than 4, able to rest, and participant in treatment plan as appropriate Description: INTERVENTIONS: 1. Encourage patient or legal account representative to report early pain and ask [...] per policy 9. Teach patient or legal account representative interventions for comforting Outcome: Adequate for [...] at the bedside 7. Instruct patient/ patient account representative about use of safety devices 8. Include patient/ patient account representative in decisions related to safety Outcome: [...] hygiene technique. 7. Identify and instruct patient/patient account representative in use of appropriate isolation precautionsfor identified infection/symptoms. 8. Provide and discuss with patient/patient account representative on educational MDRO sheet. 9. Encourage and monitor nutritional status daily and consult title lawyer if indicated. 10. Implement neutropenic guidelines as needed. Outcome: Adequate for Discharge Problem: Knowledge Deficit Goal: Patient/patient account representative demonstrates understanding of disease process, treatment [...] supplement as ordered 13. Collaborate with clinical title lawyer 14. Include patient/ patient's account representative in decisions related to nutrition Outcome: [...] develop effective communication strategies 4. Include patient/patient account representative in decisions related to communication Outcome: [...] Collaborate with ancillary departments 14. Include patient/patient account representative in decisions related to anxiety Outcome: [...] 6. Collaborate with pastoral/spiritual care, social media content specialist, mental health counselor as needed. 7. Instruct patient on diversional activities such as physical activity, distraction, and deep breathing exercises to assist with coping 8. Involve patient's account representative in care Outcome: Adequate for Discharge [...] Score of =/> 25 or indicated by [facility] Assessment Goal: Patient should be free from fall Description: Interventions: 1. [place] to environment 2. Hourly rounds addressing the [...] non-skid footwear 11. Teach patient and patient account representative to maintain environment for safety and [...] (cane, walker) within reach 19. Request patient account representative bring adaptive equipment/mobility aids from home or obtain and provide as needed 20. Consult pharmacy regarding effects of med's affecting mobility, cognition, and alternatives 21. Obtain physician order for PT if risk factors associated with mobility are present 22. Obtain physician order for OT as appropriate 23. Utilize diversional activities 24. Educate patient and patient account representative how to maintain a safe environment during visitationtimes (notify nurse prior to leaving bedside) 25. Consider appropriateness of medical or non-hospitalist medical director 26. Set up voiding schedule as appropriate (every 2 hours) Outcome: Adequate for [facility]charge [facility] eTutor [id number] Miscellaneous Notes* Plan of Care - Debra Huggins RN - 06/23/2025 11:02 AM EDT Problem: Pain Goal: Patient goal is pain score less than 4, able to rest, and participant in treatment plan as appropriate Description: INTERVENTIONS: 1. Encourage patient or legal account representative to report early pain and ask [...] per policy 9. Teach patient or legal account representative interventions for comforting Outcome: Adequate for [...] at the bedside 7. Instruct patient/ patient account representative about use of safety devices 8. Include patient/ patient account representative in decisions related to safety Outcome: [...] hygiene technique. 7. Identify and instruct patient/patient account representative in use of appropriate isolation precautionsfor identified infection/symptoms. 8. Provide and discuss with patient/patient account representative on educational MDRO sheet. 9. Encourage and monitor nutritional status daily and consult title lawyer if indicated. 10. Implement neutropenic guidelines as needed. Outcome: Adequate for Discharge Problem: Knowledge Deficit Goal: Patient/patient account representative demonstrates understanding of disease process, treatment [...] supplement as ordered 13. Collaborate with clinical title lawyer 14. Include patient/ patient's account representative in decisions related to nutrition Outcome: [...] develop effective communication strategies 4. Include patient/patient account representative in decisions related to communication Outcome: [...] Collaborate with ancillary departments 14. Include patient/patient account representative in decisions related to anxiety Outcome: [...] 6. Collaborate with pastoral/spiritual care, social media content specialist, mental health counselor as needed. 7. Instruct patient on diversional activities such as physical activity, distraction, and deep breathing exercises to assist with coping 8. Involve patient's account representative in care Outcome: Adequate for Discharge [...] Score of =/> 25 or indicated by [facility] Assessment Goal: Patient should be free from fall Description: Interventions: 1. [place] to environment 2. Hourly rounds addressing the [...] non-skid footwear 11. Teach patient and patient account representative to maintain environment for safety and [...] (cane, walker) within reach 19. Request patient account representative bring adaptive equipment/mobility aids from home or obtain and provide as needed 20. Consult pharmacy regarding effects of med's affecting mobility, cognition, and alternatives 21. Obtain physician order for PT if risk factors associated with mobility are present 22. Obtain physician order for OT as appropriate 23. Utilize diversional activities 24. Educate patient and patient account representative how to maintain a safe environment during visitationtimes (notify nurse prior to leaving bedside) 25. Consider appropriateness of medical or non-hospitalist medical director 26. Set up voiding schedule as appropriate (every 2 hours) Outcome: Adequate for Discharge * Discharge Planning Note - Hellen Brady - 06/23/2025 10:54 AM EDT DISCHARGE PLANNING NOTE BLS via PTN scheduled for today 06/23/25 at 1 PM to [facility]. Confirmed in [facility]. * Discharge Planning Note - CHARLES Lee - 06/23/2025 10:39 AM EDT DISCHARGE PLANNING NOTE Discharge written, CRF complete. Social work task [facility] to arrange BLS transport- wait confirmed time. [facility] notified of discharge and CRF [...] Description: INTERVENTIONS: 1. Encourage patient or legal account representative to report early pain and ask [...] per policy 9. Teach patient or legal account representative interventions for comforting 06/23/2025 0628 by [...] at the bedside 7. Instruct patient/ patient account representative about use of safety devices 8. Include patient/ patient account representative in decisions related to safety Outcome: [...] hygiene technique. 7. Identify and instruct patient/patient account representative in use of appropriate isolation precautionsfor identified infection/symptoms. 8. Provide and discuss with patient/patient account representative on educational MDRO sheet. 9. Encourage and monitor nutritional status daily and consult title lawyer if indicated. 10. Implement neutropenic guidelines as needed. Outcome: Progressing Note: Evaluation of progress towards goal: Standard precaution maintained Problem: Knowledge Deficit Goal: Patient/patient account representative demonstrates understanding of disease process, treatment [...] supplement as ordered 13. Collaborate with clinical title lawyer 14. Include patient/ patient's account representative in decisions related to nutrition Outcome: [...] develop effective communication strategies 4. Include patient/patient account representative in decisions related to communication Outcome: [...] Collaborate with ancillary departments 14. Include patient/patient account representative in decisions related to anxiety Outcome: [...] 6. Collaborate with pastoral/spiritual care, social media content specialist, mental health counselor as needed. 7. Instruct patient on diversional activities such as physical activity, distraction, and deep breathing exercises to assist with coping 8. Involve patient's account representative in care Outcome: Progressing Note: Evaluation [...] Score of =/> 25 or indicated by [facility] Assessment Goal: Patient should be free from fall Description: Interventions: 1. [place] to environment 2. Hourly rounds addressing the [...] non-skid footwear 11. Teach patient and patient account representative to maintain environment for safety and [...] (cane, walker) within reach 19. Request patient account representative bring adaptive equipment/mobility aids from home or obtain and provide as needed 20. Consult pharmacy regarding effects of med's affecting mobility, cognition, and alternatives 21. Obtain physician order for PT if risk factors associated with mobility are present 22. Obtain physician order for OT as appropriate 23. Utilize diversional activities 24. Educate patient and patient account representative how to maintain a safe environment during visitationtimes (notify nurse prior to leaving bedside) 25. Consider appropriateness of medical or non-hospitalist medical director 26. Set up voiding schedule as appropriate (every 2 hours) Outcome: Progressing Note: Evaluation of progress towards goal: Fall bundles maintained * Plan of Care - Debra Huggins RN - 06/22/2025 2:18 PM EDT Problem: Pain Goal: Patient goal is pain score less than 4, able to rest, and participant in treatment plan as appropriate Description: INTERVENTIONS: 1. Encourage patient or legal account representative to report early pain and ask [...] per policy 9. Teach patient or legal account representative interventions for comforting Outcome: Progressing Note: [...] at the bedside 7. Instruct patient/ patient account representative about use of safety devices 8. Include patient/ patient account representative in decisions related to safety Outcome: [...] hygiene technique. 7. Identify and instruct patient/patient account representative in use of appropriate isolation precautionsfor identified infection/symptoms. 8. Provide and discuss with patient/patient account representative on educational MDRO sheet. 9. Encourage and monitor nutritional status daily and consult title lawyer if indicated. 10. Implement neutropenic guidelines as needed. Outcome: Progressing Note: Evaluation of progress towards goal: continue to monitor labs, vitals, tele, IV site Problem: Knowledge Deficit Goal: Patient/patient account representative demonstrates understanding of disease process, treatment [...] supplement as ordered 13. Collaborate with clinical title lawyer 14. Include patient/ patient's account representative in decisions related to nutrition Outcome: [...] develop effective communication strategies 4. Include patient/patient account representative in decisions related to communication Outcome: Progressing Note: Evaluation of progress towards goal: [place], speak loudly and understands Problem: Potential for [...] Collaborate with ancillary departments 14. Include patient/patient account representative in decisions related to anxiety Outcome: [...] 6. Collaborate with pastoral/spiritual care, social media content specialist, mental health counselor as needed. 7. Instruct patient on diversional activities such as physical activity, distraction, and deep breathing exercises to assist with coping 8. Involve patient's account representative in care Outcome: Progressing Note: Evaluation [...] Progressing Note: Evaluation of progress towards goal: [place] [facility] [place] Problem: Moderate - High Risk Fall Score Description: [place] Fall Score of =/> 25 or indicated by [facility] Assessment Goal: Patient should be free from fall Description: Interventions: 1. [place] to environment 2. Hourly rounds addressing the [...] non-skid footwear 11. Teach patient and patient account representative to maintain environment for safety and [...] (cane, walker) within reach 19. Request patient account representative bring adaptive equipment/mobility aids from home or obtain and provide as needed 20. Consult pharmacy regarding effects of med's affecting mobility, cognition, and alternatives 21. Obtain physician order for PT if risk factors associated with mobility are present 22. Obtain physician order for OT as appropriate 23. Utilize diversional activities 24. Educate patient and patient account representative how to maintain a safe environment during visitationtimes (notify nurse prior to leaving bedside) 25. Consider appropriateness of medical or non-hospitalist medical director 26. Set up voiding schedule as appropriate (every 2 hours) Outcome: Progressing Note: Evaluation of progress towards goal: no falls; syncopal episode per notes 06/21; up with assistonly; high fall risk - maintain precautions * Discharge Planning Note - Norma Ritter - 06/22/2025 12:42 PM EDT DISCHARGE PLANNING NOTE Prior Auth approved for admission to : [facility] (P# [phone] ; F# ) Approval # [id number] Valid for Dates: 06/22/2025 - 06/28/2025 * Discharge Planning Note - Norma Ritter - 06/22/2025 10:39 AM EDT DISCHARGE PLANNING NOTE Prior [facility]: [facility] Via: [employer] On behalf of : [facility] (P# ; F# ) Ref# [id number] * Discharge Planning Note - CHARLES Lee - 06/22/2025 10:15 AM EDT DISCHARGE PLANNING NOTE Case discussed in daily transition rounds and chart reviewed by CN. Discharge Plan remains: [facility]. [facility] accepting referral. Social work contacted to inform of above and she was pleased with the news. is looking for patient's SSN. Social work task [facility] to start precert. CN will continue to follow and is available should any further needs arise. - CHARLES LEE 06/22/25 10:15 AM Insurance approved SNF stay. Patient is tentatively discharged tomorrow. [facility] [...] Description: INTERVENTIONS: 1. Encourage patient or legal account representative to report early pain and ask [...] per policy 9. Teach patient or legal account representative interventions for comforting Outcome: Progressing Note: [...] at the bedside 7. Instruct patient/ patient account representative about use of safety devices 8. Include patient/ patient account representative in decisions related to safety Outcome: [...] hygiene technique. 7. Identify and instruct patient/patient account representative in use of appropriate isolation precautionsfor identified infection/symptoms. 8. Provide and discuss with patient/patient account representative on educational MDRO sheet. 9. Encourage and monitor nutritional status daily and consult title lawyer if indicated. 10. Implement neutropenic guidelines as needed. Outcome: Progressing Note: Evaluation of progress towards goal: Pt has no s/s of infection, standard precaution maintained Problem: Knowledge Deficit Goal: Patient/patient account representative demonstrates understanding of disease process, treatment [...] supplement as ordered 13. Collaborate with clinical title lawyer 14. Include patient/ patient's account representative in decisions related to nutrition Outcome: [...] develop effective communication strategies 4. Include patient/patient account representative in decisions related to communication Outcome: [...] Collaborate with ancillary departments 14. Include patient/patient account representative in decisions related to anxiety Outcome: [...] 6. Collaborate with pastoral/spiritual care, social media content specialist, mental health counselor as needed. 7. Instruct patient on diversional activities such as physical activity, distraction, and deep breathing exercises to assist with coping 8. Involve patient's account representative in care Outcome: Progressing Note: Evaluation [...] Score of =/> 25 or indicated by [facility] Assessment Goal: Patient should be free from fall Description: Interventions: 1. [place] to environment 2. Hourly rounds addressing the [...] non-skid footwear 11. Teach patient and patient account representative to maintain environment for safety and [...] (cane, walker) within reach 19. Request patient account representative bring adaptive equipment/mobility aids from home or obtain and provide as needed 20. Consult pharmacy regarding effects of med's affecting mobility, cognition, and alternatives 21. Obtain physician order for PT if risk factors associated with mobility are present 22. Obtain physician order for OT as appropriate 23. Utilize diversional activities 24. Educate patient and patient account representative how to maintain a safe environment during visitationtimes (notify nurse prior to leaving bedside) 25. Consider appropriateness of medical or non-hospitalist medical director 26. Set up voiding schedule as appropriate (every 2 hours) Outcome: Progressing Note: Evaluation of progress towards goal: Fall bundles maintained * Plan of Care - Lauren Gaona RN - 06/21/2025 6:18 PM EDT Problem: Knowledge Deficit Goal: Patient/patient account representative demonstrates understanding of disease process, treatment [...] for adl's Problem: Knowledge Deficit Goal: Patient/patient account representative demonstrates understanding of disease process, treatment [...] Description: INTERVENTIONS: 1. Encourage patient or legal account representative to report early pain and ask [...] per policy 9. Teach patient or legal account representative interventions for comforting Outcome: Progressing Note: [...] at the bedside 7. Instruct patient/ patient account representative about use of safety devices 8. Include patient/ patient account representative in decisions related to safety Outcome: [...] hygiene technique. 7. Identify and instruct patient/patient account representative in use of appropriate isolation precautionsfor identified infection/symptoms. 8. Provide and discuss with patient/patient account representative on educational MDRO sheet. 9. Encourage and monitor nutritional status daily and consult title lawyer if indicated. 10. Implement neutropenic guidelines as [...] supplement as ordered 13. Collaborate with clinical title lawyer 14. Include patient/ patient's account representative in decisions related to nutrition Outcome: [...] develop effective communication strategies 4. Include patient/patient account representative in decisions related to communication Outcome: [...] Collaborate with ancillary departments 14. Include patient/patient account representative in decisions related to anxiety Outcome: [...] 6. Collaborate with pastoral/spiritual care, social media content specialist, mental health counselor as needed. 7. Instruct patient on diversional activities such as physical activity, distraction, and deep breathing exercises to assist with coping 8. Involve patient's account representative in care Outcome: Progressing Note: Evaluation [...] Score of =/> 25 or indicated by [facility] Assessment Goal: Patient should be free from fall Description: Interventions: 1. [place] to environment 2. Hourly rounds addressing the [...] non-skid footwear 11. Teach patient and patient account representative to maintain environment for safety and [...] (cane, walker) within reach 19. Request patient account representative bring adaptive equipment/mobility aids from home or obtain and provide as needed 20. Consult pharmacy regarding effects of med's affecting mobility, cognition, and alternatives 21. Obtain physician order for PT if risk factors associated with mobility are present 22. Obtain physician order for OT as appropriate 23. Utilize diversional activities 24. Educate patient and patient account representative how to maintain a safe environment during visitationtimes (notify nurse prior to leaving bedside) 25. Consider appropriateness of medical or non-hospitalist medical director 26. Set up voiding schedule as appropriate [...] Description: INTERVENTIONS: 1. Encourage patient or legal account representative to report early pain and ask [...] per policy 9. Teach patient or legal account representative interventions for comforting Outcome: Progressing Note: [...] at the bedside 7. Instruct patient/ patient account representative about use of safety devices 8. Include patient/ patient account representative in decisions related to safety Outcome: [...] hygiene technique. 7. Identify and instruct patient/patient account representative in use of appropriate isolation precautionsfor identified infection/symptoms. 8. Provide and discuss with patient/patient account representative on educational MDRO sheet. 9. Encourage and monitor nutritional status daily and consult title lawyer if indicated. 10. Implement neutropenic guidelines as [...] supplement as ordered 13. Collaborate with clinical title lawyer 14. Include patient/ patient's account representative in decisions related to nutrition Outcome: [...] develop effective communication strategies 4. Include patient/patient account representative in decisions related to communication Outcome: [...] Collaborate with ancillary departments 14. Include patient/patient account representative in decisions related to anxiety Outcome: [...] 6. Collaborate with pastoral/spiritual care, social media content specialist, mental health counselor as needed. 7. Instruct patient on diversional activities such as physical activity, distraction, and deep breathing exercises to assist with coping 8. Involve patient's account representative in care Outcome: Progressing Note: Evaluation [...] be free from fall Description: Interventions: 1. [place] to environment 2. Hourly rounds addressing the [...] non-skid footwear 11. Teach patient and patient account representative to maintain environment for safety and [...] (cane, walker) within reach 19. Request patient account representative bring adaptive equipment/mobility aids from home or obtain and provide as needed 20. Consult pharmacy regarding effects of med's affecting mobility, cognition, and alternatives 21. Obtain physician order for PT if risk factors associated with mobility are present 22. Obtain physician order for OT as appropriate 23. Utilize diversional activities 24. Educate patient and patient account representative how to maintain a safe environment during visitationtimes (notify nurse prior to leaving bedside) 25. Consider appropriateness of medical or non-hospitalist medical director 26. Set up voiding schedule as appropriate (every 2 hours) Outcome: Progressing Note: Evaluation of progress towards goal: free of fall this shift Problem: Pain Goal: Patient goal is pain score less than 4, able to rest, and participant in treatment plan as appropriate Description: INTERVENTIONS: 1. Encourage patient or legal account representative to report early pain and ask [...] per policy 9. Teach patient or legal account representative interventions for comforting Outcome: Progressing Note: [...] at the bedside 7. Instruct patient/ patient account representative about use of safety devices 8. Include patient/ patient account representative in decisions related to safety Outcome: [...] at the bedside 7. Instruct patient/ patient account representative about use of safety devices 8. Include patient/ patient account representative in decisions related to safety Outcome: [...] hygiene technique. 7. Identify and instruct patient/patient account representative in use of appropriate isolation precautionsfor identified infection/symptoms. 8. Provide and discuss with patient/patient account representative on educational MDRO sheet. 9. Encourage and monitor nutritional status daily and consult title lawyer if indicated. 10. Implement neutropenic guidelines as [...] supplement as ordered 13. Collaborate with clinical title lawyer 14. Include patient/ patient's account representative in decisions related to nutrition Outcome: [...] develop effective communication strategies 4. Include patient/patient account representative in decisions related to communication Outcome: [...] Collaborate with ancillary departments 14. Include patient/patient account representative in decisions related to anxiety Outcome: [...] Score of =/> 25 or indicated by [facility] Assessment Goal: Patient should be free from fall Description: Interventions: 1. [place] to environment 2. Hourly rounds addressing the [...] non-skid footwear 11. Teach patient and patient account representative to maintain environment for safety and [...] (cane, walker) within reach 19. Request patient account representative bring adaptive equipment/mobility aids from home or obtain and provide as needed 20. Consult pharmacy regarding effects of med's affecting mobility, cognition, and alternatives 21. Obtain physician order for PT if risk factors associated with mobility are present 22. Obtain physician order for OT as appropriate 23. Utilize diversional activities 24. Educate patient and patient account representative how to maintain a safe environment during visitationtimes (notify nurse prior to leaving bedside) 25. Consider appropriateness of medical or non-hospitalist medical director 26. Set up voiding schedule as appropriate [...] 6. Collaborate with pastoral/spiritual care, social media content specialist, mental health counselor as needed. 7. Instruct patient on diversional activities such as physical activity, distraction, and deep breathing exercises to assist with coping 8. Involve patient's account representative in care Outcome: Progressing Note: Evaluation of progress towards goal: no issues * Discharge Planning Note - Martina Mckeon - 06/21/2025 3:45 PM EDT DISCHARGE PLANNING NOTE Referral sent to [facility] (P# ; F# ) * Discharge Planning Note - Rohini Mcintyre RN - 06/21/2025 2:29 PM EDT 06/21/25 6911 Services Requested Patient expects to be discharged to: SNF Does the patient wish to have family/friend/caregiver involved in their discharge planning? Yes Does the patient plan to return home to a community setting? No, patient to discharge to facility-based provider. See Discharge Disposition Discharge Disposition SNF Facility/Service Name NA SNF Name [facility] Does the patient need discharge transportation arranged? Yes Transportation Arranged Ambulance Mobility issues discussed with transportation provider Yes Patient choice offered Yes List Provided Yes [facility] List Provided Snf Facility Financial Disclosure Provided for In-Network Referral Yes DISCHARGE PLANNING NOTE CN spoke w pts , SNF choice is [facility]. She did n ot have a 2nd choice. CN asked her to review list for dditional choices. CN tasked for referral to [facility]. Barriers: SNFaccept. Will need precert. CTbrain.Rohini Mcintyre RN * Discharge Planning Note - Rohini Mcintyre RN - 06/21/2025 12:44 PM EDT DISCHARGE PLANNING NOTE PT/OT rec SNF. CN called and left Voicemail for pts . Pt not appropriate for [facility]. Need SNF choices. CN also sent SNF list Via careport to pts cell phone to select choices. Await response. Rohini Mcintyre RN * PT/OT/SPECIAL MAKEUP FX ARTIST INSTRUCTOR - LU Enriquez - 06/21/2025 9:58 AM [...] Past Medical History: Diagnosis Date Atrial fibrillation ([facility]) BPH (benign prostatic hyperplasia) Broken nose CVA (cerebral vascular accident) ([facility]) 06/17/2025 Diabetes ([facility]) Epistaxis Hypertension Hyponatremia secondary to SIADH Hypothyroid [...] Equipment: waker, chair alarm, gait belt, telemetry. Telemetry/Brush Operator: Yes Oxygen Used: room air Other: [...] Patient will perform toilet transfers with Modified [place] Dates: Start: 06/21/25 Expected End: 07/19/25 Description: [...] problems. Principal Problem: CVA (cerebral vascular accident) ([facility]) * PT/OT/SPECIAL MAKEUP FX ARTIST INSTRUCTOR - Ayaan Campos, PT - 06/21/2025 9:56 [...] Past Medical History: Diagnosis Date Atrial fibrillation ([facility]) BPH (benign prostatic hyperplasia) Broken nose CVA (cerebral vascular accident) ([facility]) 06/17/2025 Diabetes ([facility]) Epistaxis Hypertension Hyponatremia secondary to SIADH Hypothyroid [...] gait belt, wheeled walker, IV, chair/bed alarm Telemetry/Brush Operator: Yes Oxygen Used: room air Other: [...] problems. Principal Problem: CVA (cerebral vascular accident) ([facility]) * Plan of Care - Nicole Sparks RN - 06/20/2025 11:40 PM EDT Problem: Pain Goal: Patient goal is pain score less than 4, able to rest, and participant in treatment plan as appropriate Description: INTERVENTIONS: 1. Encourage patient or legal account representative to report early pain and ask [...] per policy 9. Teach patient or legal account representative interventions for comforting Outcome: Progressing Note: [...] at the bedside 7. Instruct patient/ patient account representative about use of safety devices 8. Include patient/ patient account representative in decisions related to safety Outcome: [...] hygiene technique. 7. Identify and instruct patient/patient account representative in use of appropriate isolation precautionsfor identified infection/symptoms. 8. Provide and discuss with patient/patient account representative on educational MDRO sheet. 9. Encourage and monitor nutritional status daily and consult title lawyer if indicated. 10. Implement neutropenic guidelines as needed. Outcome: Progressing Note: Evaluation of progress towards goal: No s/s of infection at this time Problem: Knowledge Deficit Goal: Patient/patient account representative demonstrates understanding of disease process, treatment [...] Score of =/> 25 or indicated by [facility] Assessment Goal: Patient should be free from fall Description: Interventions: 1. [place] to environment 2. Hourly rounds addressing the [...] non-skid footwear 11. Teach patient and patient account representative to maintain environment for safety and [...] (cane, walker) within reach 19. Request patient account representative bring adaptive equipment/mobility aids from home or obtain and provide as needed 20. Consult pharmacy regarding effects of med's affecting mobility, cognition, and alternatives 21. Obtain physician order for PT if risk factors associated with mobility are present 22. Obtain physician order for OT as appropriate 23. Utilize diversional activities 24. Educate patient and patient account representative how to maintain a safe environment during visitationtimes (notify nurse prior to leaving bedside) 25. Consider appropriateness of medical or non-hospitalist medical director 26. Set up voiding schedule as appropriate (every 2 hours) Outcome: Progressing Note: Evaluation of progress towards goal: pt free from fall at this time Problem: Knowledge Deficit Goal: Patient/patient account representative demonstrates understanding of disease process, treatment [...] will need updated PT/OT notes sent to [facility]. When pt/ot worked w him yesterday [...] received a voice mail from Franc at [facility] phone [phone], she says she has left a few messages for an update for patient. This is the only vm I have received. Sending an [employer] chat to Rohini / Vivienne / Mesha with information * Plan of Care - Nicole Sparks RN - 06/19/2025 11:13 PM EDT Problem: Pain Goal: Patient goal is pain score less than 4, able to rest, and participant in treatment plan as appropriate Description: INTERVENTIONS: 1. Encourage patient or legal account representative to report early pain and ask [...] per policy 9. Teach patient or legal account representative interventions for comforting Outcome: Progressing Note: [...] at the bedside 7. Instruct patient/ patient account representative about use of safety devices 8. Include patient/ patient account representative in decisions related to safety Outcome: [...] hygiene technique. 7. Identify and instruct patient/patient account representative in use of appropriate isolation precautionsfor identified infection/symptoms. 8. Provide and discuss with patient/patient account representative on educational MDRO sheet. 9. Encourage and monitor nutritional status daily and consult title lawyer if indicated. 10. Implement neutropenic guidelines as [...] supplement as ordered 13. Collaborate with clinical title lawyer 14. Include patient/ patient's account representative in decisions related to nutrition Outcome: [...] be free from fall Description: Interventions: 1. [place] to environment 2. Hourly rounds addressing the [...] non-skid footwear 11. Teach patient and patient account representative to maintain environment for safety and [...] (cane, walker) within reach 19. Request patient account representative bring adaptive equipment/mobility aids from home or obtain and provide as needed 20. Consult pharmacy regarding effects of med's affecting mobility, cognition, and alternatives 21. Obtain physician order for PT if risk factors associated with mobility are present 22. Obtain physician order for OT as appropriate 23. Utilize diversional activities 24. Educate patient and patient account representative how to maintain a safe environment during visitationtimes (notify nurse prior to leaving bedside) 25. Consider appropriateness of medical or non-hospitalist medical director 26. Set up voiding schedule as appropriate (every 2 hours) Outcome: Progressing Note: Evaluation of progress towards goal: pt free from fall at this time safety measures in place * PT/OT/SPECIAL MAKEUP FX ARTIST INSTRUCTOR - Ayaan Campos, PT - 06/19/2025 2:49 [...] 6 Clicks: Basic Mobility Raw Score: 6 [facility] G Code Modifier: CN SwePASS score = 4/36 Pt is an 85 yo male admit 06/17 with L sided weakness and aphasia while at Coumadin clinic. NIHSS = 13. Pt with recent hospitalization 06/02 s/p fall while adjusting lawn chair with nasal bone fracture and persistent epistaxis. CT brain - no acute CTA - R P1/P2 occlusion. TNK given and transfer to [facility]. On arrival, NIHSS = 0 CT [...] Past Medical History: Diagnosis Date Atrial fibrillation ([facility]) BPH (benign prostatic hyperplasia) Broken nose CVA (cerebral vascular accident) ([facility]) 06/17/2025 Diabetes ([facility]) Epistaxis Hypertension Hyponatremia secondary to SIADH Hypothyroid [...] tolerated Equipment: repositioning sling, IV, bed alarm Telemetry/Brush Operator: Yes Oxygen Used: room air Other: high fall risk, L sided weakness, aphasia Subjective Physical Therapy Comments: Pt lethargic this date, able to awaken but drifts off and difficulty following most commands - RN eDepali britt Pain Assessment Pain Assessment: (Pt indicated back pain with supine to sit and with L hip ROM but unable to localize or rate due to cognition) Home Living Type of Home: House Home Layout: One level, Able to live on main level with bedroom/bathroom, Stairs to enter with rails Stairs to Enter: 2 from publicist Rails: Right Stairs in Home: 0 Bathroom Shower/Tub: Walk-in shower Bathroom Toilet: Standard Home Equipment: Rolling walker Other : Home info from EMR review of recent therapy eval at [facility] - pt not able to answer questionsthis date and no family present. 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 Principal Problem: CVA (cerebral vascular accident) ([facility]) * PT/OT/SPECIAL MAKEUP FX ARTIST INSTRUCTOR - Veronica Rivera OTR/Krishan - 06/19/2025 2:48 PM EDT Occupational Therapy Evaluation Discharge Recommendations for Safe Patient Transition Discharge Recommendations: Post acute - moderate Post Acute Moderate Rehab Needs: Recommend moderate intensity rehab, Tolerate 1- 2 hrs of therapy 3-5 days/wk, Subacute or chronic functional impairment Current Impairments Informing Therapy Recommendation: Ambulation status/safety, Cognition, Fall risk, ADL status, Communication needs, Endurance level Modified [place] Level of Disability: Severe disability 0= No [...] lot Scoring Daily Activity Raw Score: 12 [facility] G Code Modifier: CL Modifed chip index; [...] Past Medical History: Diagnosis Date Atrial fibrillation ([facility]) BPH (benign prostatic hyperplasia) Broken nose CVA (cerebral vascular accident) ([facility]) 06/17/2025 Diabetes ([facility]) Epistaxis Hypertension Hyponatremia secondary to SIADH Hypothyroid [...] per early mobility guidelines. Equipment: telemetry, IV Telemetry/Brush Operator: Yes Oxygen Used: room air Other: [...] problems. Principal Problem: CVA (cerebral vascular accident) ([facility]) * Discharge Planning Note - Dawson [...] Home with home health services Facility/Service Name [facility] Case discussed in daily transition rounds and chart reviewed by CN. Barriers to discharge include PT/OT, PMR to see, Discharge Plan remains: Home with HHC vs IPR. [facility] will accept. [facility]- will need PT/OT notes as soon [...] Description: INTERVENTIONS: 1. Encourage patient or legal account representative to report early pain and ask [...] per policy 9. Teach patient or legal account representative interventions for comforting Outcome: Progressing Note: [...] at the bedside 7. Instruct patient/ patient account representative about use of safety devices 8. Include patient/ patient account representative in decisions related to safety Outcome: [...] hygiene technique. 7. Identify and instruct patient/patient account representative in use of appropriate isolation precautionsfor identified infection/symptoms. 8. Provide and discuss with patient/patient account representative on educational MDRO sheet. 9. Encourage and monitor nutritional status daily and consult title lawyer if indicated. 10. Implement neutropenic guidelines as needed. Outcome: Progressing Note: Evaluation of progress towards goal: Pt should remain free from infection during this shift. Standard precautions used during care. Problem: Knowledge Deficit Goal: Patient/patient account representative demonstrates understanding of disease process, treatment [...] Score of =/> 25 or indicated by [facility] Assessment Goal: Patient should be free from fall Description: Interventions: 1. [place] to environment 2. Hourly rounds addressing the [...] non-skid footwear 11. Teach patient and patient account representative to maintain environment for safety and [...] (cane, walker) within reach 19. Request patient account representative bring adaptive equipment/mobility aids from home or obtain and provide as needed 20. Consult pharmacy regarding effects of med's affecting mobility, cognition, and alternatives 21. Obtain physician order for PT if risk factors associated with mobility are present 22. Obtain physician order for OT as appropriate 23. Utilize diversional activities 24. Educate patient and patient account representative how to maintain a safe environment during visitationtimes (notify nurse prior to leaving bedside) 25. Consider appropriateness of medical or non-hospitalist medical director 26. Set up voiding schedule as appropriate [...] EDT DISCHARGE PLANNING NOTE Referral sent to [facility] in [place] (P# ; F# ) * Discharge Planning Note - Brianna Verduzco - 06/18/2025 1:04 PM EDT DISCHARGE PLANNING NOTE Referral sent to. [facility] in [place], [place] (P# ; F# ) * Discharge [...] Acute rehab, Home with home health services Textile Machinery Sales Representative met with patient, introduced self, and explained role. Patient educated on safe discharge plan. Pt admitted 06/17/2025 with CVA (cerebral vascular accident) ([facility]) [I63.9] per chart review. Consults: Neurology Discharge Barriers per Daily Transition Rounds and chart review: PT/OT, s/p TNK- bedrest, MRi, echo. 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 Caregiver's personal limitations include Patient's feels she [...] rehab. PCP: TANYA Lozano Pharmacy: [facility] PCP and pharmacy confirmed with patient. CN offered to assist with follow up appointment arrangements; . TANYA Lozano added to Follow Up Providers for Summary of Care communication. Per patient self-report: Drug use: denies Smoking: denies ETOH Use: rarely Current discharge plan is: Home with [facility] vs acute rehab pending PT/OT eval. CN spoke with patient'swife she has used [facility] in past. Tasked to send referrals to [facility] and to [facility]. Services Requested: Services Requested Patient expects [...] Evaluation of progress towards goal: Home with [facility] Autogenerated Goal Will continue to follow as plan of care develops. CN discussed benefits and importance of medication compliance and follow ups. Please feel free to reach out for any discharge planning questions. - Dawson Yost RN 06/18/25 12:24 PM * PT/OT/SPECIAL MAKEUP FX ARTIST INSTRUCTOR - Zaire Sierra CCC-SPECIAL MAKEUP FX ARTIST INSTRUCTOR - 06/18/2025 10:35 AM EDT Speech Therapy Evaluation Bedside Swallow/Feeding Evaluation Speech & Language Cognitive Evaluation Discharge Recommendations for Safe Patient Transition SPECIAL MAKEUP FX ARTIST INSTRUCTOR Post Discharge Therapy Recommendations: Continue ST services [...] decline resulting from CVA. Prognosis Services: Skilled SPECIAL MAKEUP FX ARTIST INSTRUCTOR services to address above deficits Prognosis/Potential: Good Considerations: Age, Cognition Discharge Recommendations for Safe Patient Transition SPECIAL MAKEUP FX ARTIST INSTRUCTOR Post Discharge Therapy Recommendations: Continue ST services [...] should be further evaluated. Prognosis Services: Skilled SPECIAL MAKEUP FX ARTIST INSTRUCTOR services to address the above deficits Prognosis/Potential: [...] Dysphagia Problem: Swallowing Dates: Start: 06/18/25 Disciplines: SPECIAL MAKEUP FX ARTIST INSTRUCTOR Goal: STG: Patient will complete safety strategies independently during PO intake 90% of the time Dates: Start: 06/18/25 Expected End: 07/22/25 Disciplines: SPECIAL MAKEUP FX ARTIST INSTRUCTOR Template: ST - Rehab Speech Problem: Auditory Comprehension Dates: Start: 06/18/25 Disciplines: SPECIAL MAKEUP FX ARTIST INSTRUCTOR Goal: LTG: Patient will comprehend communication related to basic medical and social needs and utilize compensatory strategies to maintain safety in a functional living environment Dates: Start: 06/18/25 Expected End: 07/22/25 Disciplines: SPECIAL MAKEUP FX ARTIST INSTRUCTOR Goal: STG: Patient will answer simple yes/no questions with 90% accuracy with minimal cueing. Dates: Start: 06/18/25 Expected End: 07/22/25 Disciplines: SPECIAL MAKEUP FX ARTIST INSTRUCTOR Goal: STG: Patient will answer complex yes/no questions with 90% accuracy with minimal cueing Dates: Start: 06/18/25 Expected End: 07/22/25 Disciplines: SPECIAL MAKEUP FX ARTIST INSTRUCTOR Problem: Verbal Expression Dates: Start: 06/18/25 Disciplines: SPECIAL MAKEUP FX ARTIST INSTRUCTOR Goal: LTG: Patient will utilize compensatory strategies to communicate wants and needs effectively to different conversational partners, maintain safety and participate socially in a functional living environment Dates: Start: 06/18/25 Expected End: 07/22/25 Disciplines: SPECIAL MAKEUP FX ARTIST INSTRUCTOR Goal: STG: Patient will complete simple to complex divergent and convergent naming tasks with 90% accuracy with minimal cueing to improve thought organization Dates: Start: 06/18/25 Expected End: 07/22/25 Disciplines: SPECIAL MAKEUP FX ARTIST INSTRUCTOR Goal: STG: Patient will use word retrieval strategies during structured interactions to improve functional communication during activities of daily living with 90% accuracy with minimal cueing Dates: Start: 06/18/25 Expected End: 07/22/25 Disciplines: SPECIAL MAKEUP FX ARTIST INSTRUCTOR Speech Therapy Care Plan (Resolved) There are no resolved problems. Principal Problem: CVA (cerebral vascular accident) ([facility]) * PT/OT/SPECIAL MAKEUP FX ARTIST INSTRUCTOR - ALVARO Chino/Krishan - 06/18/2025 7:37 AM EDT Occupational Therapy OT Type of Visit: Medical deferral Reason For Medical Deferral: Activity limitations Activity Limitations: Strict bedrest (Per TNK protocol. Will continue to follow.) * PT/OT/SPECIAL MAKEUP FX ARTIST INSTRUCTOR - Ayaan Campos PT - 06/18/2025 7:28 [...] Description: INTERVENTIONS: 1. Encourage patient or legal account representative to report early pain and ask [...] per policy 9. Teach patient or legal account representative interventions for comforting Outcome: Progressing Note: [...] at the bedside 7. Instruct patient/ patient account representative about use of safety devices 8. Include patient/ patient account representative in decisions related to safety Outcome: [...] hygiene technique. 7. Identify and instruct patient/patient account representative in use of appropriate isolation precautionsfor identified infection/symptoms. 8. Provide and discuss with patient/patient account representative on educational MDRO sheet. 9. Encourage and monitor nutritional status daily and consult title lawyer if indicated. 10. Implement neutropenic guidelines as [...] be free from fall Description: Interventions: 1. [place] to environment 2. Hourly rounds addressing the [...] non-skid footwear 11. Teach patient and patient account representative to maintain environment for safety and [...] (cane, walker) within reach 19. Request patient account representative bring adaptive equipment/mobility aids from home or obtain and provide as needed 20. Consult pharmacy regarding effects of med's affecting mobility, cognition, and alternatives 21. Obtain physician order for PT if risk factors associated with mobility are present 22. Obtain physician order for OT as appropriate 23. Utilize diversional activities 24. Educate patient and patient account representative how to maintain a safe environment during visitationtimes (notify nurse prior to leaving bedside) 25. Consider appropriateness of medical or non-hospitalist medical director 26. Set up voiding schedule as appropriate [...] Description: INTERVENTIONS: 1. Encourage patient or legal account representative to report early pain and ask [...] per policy 9. Teach patient or legal account representative interventions for comforting Outcome: Progressing Note: [...] at the bedside 7. Instruct patient/ patient account representative about use of safety devices 8. Include patient/ patient account representative in decisions related to safety Outcome: [...] hygiene technique. 7. Identify and instruct patient/patient account representative in use of appropriate isolation precautionsfor identified infection/symptoms. 8. Provide and discuss with patient/patient account representative on educational MDRO sheet. 9. Encourage and monitor nutritional status daily and consult title lawyer if indicated. 10. Implement neutropenic guidelines as needed. Outcome: Progressing Note: Evaluation of progress towards goal: Patient remains free from signs of infection at this time. Will continue to monitor. Problem: Knowledge Deficit Goal: Patient/patient account representative demonstrates understanding of disease process, treatment [...] Score of =/> 25 or indicated by [facility] Assessment Goal: Patient should be free from fall Description: Interventions: 1. [place] to environment 2. Hourly rounds addressing the [...] non-skid footwear 11. Teach patient and patient account representative to maintain environment for safety and [...] (cane, walker) within reach 19. Request patient account representative bring adaptive equipment/mobility aids from home or obtain and provide as needed 20. Consult pharmacy regarding effects of med's affecting mobility, cognition, and alternatives 21. Obtain physician order for PT if risk factors associated with mobility are present 22. Obtain physician order for OT as appropriate 23. Utilize diversional activities 24. Educate patient and patient account representative how to maintain a safe environment during visitationtimes (notify nurse prior to leaving bedside) 25. Consider appropriateness of medical or non-hospitalist medical director 26. Set up voiding schedule as appropriate (every 2 hours) Outcome: Progressing Note: Evaluation of progress towards goal: Fall risk assessment preformed and safety measures in place. Education given to family/patient. Will continue to monitor. Additional Comments: documented in this encounter[facility]-10-2025 Progress note* Discharge Planning Note - Hellen Brady - 06/23/2025 10:54 AM EDT DISCHARGE PLANNING NOTE BLS via PTN scheduled for today 06/23/25 at 1 PM to [facility]. Confirmed in Zoll. [facility]08-10-2025 Progress note* Discharge Planning Note - CHARLES Lee - 06/23/2025 10:39 AM EDT DISCHARGE PLANNING NOTE Discharge written, CRF complete. Social work task [facility] to arrange BLS transport- wait confirmed time. [facility] notified of discharge and CRF sent. HENS submitted. is aware and agreeable to transition plan. RN updated. - CHARLES LEE 06/23/25 10:[address] [facility]08-10-2025 Hospital course Narrative* Erika Crisostomo MD - 06/23/2025 10:30 AM EDT Images from the original note were not included. [facility]- Hospital Medicine Discharge Summary Patient's Name: Dariel Zabala Date of : 1940 Age: 85 yrs Gender: male PCP: Patient Care Team: Yanique Mcneill APRN-AVELINA as PCP - General (Family Medicine) DATE OF ADMISSION: 06/17/2025 DATE OF DISCHARGE: 06/23/2025 DISCHARGE DIAGNOSES: Active Hospital Problems Diagnosis Date Noted CVA (cerebral vascular accident) ([facility] 06/17/2025 Resolved Problems No resolved problems [...] total) by mouth in the morning. coenzyme U69-avbaacb E 100-5 mg-unit capsule Take 100 mg [...] These medications were sent to [facility]/pharmacy #[id number] - [place], [place] - [address] [facility] AT [address] OF [address] [address] apixaban 5 mg tablet midodrine 5 mg [...] Extra Tubes. Procedure Abnormality Status --------- ------ [employer] Top[[id number]] Final result Please view results for these [...] Restriction 1800 mL Adult diet Yanique Españaann, IRRIGATION INSTALLATION SPECIALIST-GLOBAL PROCESS OWNER [address] [facility] [address] Follow up Information Provided to the Patient: Patient given copy of Discharge Instructions, patient hospital stay was discussed. No special instructions. I have spent 35 minutes coordinating and preparing this discharge. I have discussed the patient's hospitalization course, treatment plan and follow up instructions with patient and . I have answered all the patient's questions. Electronically signed by: ERIKA CRISOSTOMO MD [facility] Hospitalists, Department of Internal Medicine 06/23/25 1:57 PM This note was partially dictated with the use of M*Modal.Please note that this dictation was completed with computer voice recognition software. Quite often unanticipated grammatical, syntax, homophones, and other interpretive errors are inadvertently transcribed by the computer software. Please disregard these errors. Please excuse any errors that have escaped final proofreading documented in this encounterMercy Health St. [facility]08-10-2025 History of Present illness Narrative* [...] PLATELETS X10E9/L 234 212 189 204 200 @RESUFAST(IRON,TIBC,FERRITIN,IRONSAT,FOLATE,[id number]))@ Results from last 7 days Lab Units [...] parameters to maintain systolic blood pressure more [id number] and less than 120. 4. Atrial fibrillation: [...] For questions please call: Answering Service at [phone] Or Office at [phone] This note was created with the assistance of a speech-recognition program. Although the intention is to generate a document that actually reflects the content of the visit, no guarantees can be provided that every mistake has been identified and corrected by editing. * Erika Crisostomo MD - 06/22/2025 12:57 PM EDT Images from the original note were not included. [facility] Hospitalists Progress Note 06/22/2025 Patient Name: [...] Tubes. Procedure Abnormality Status --------- ------ [employer] Top[[id number]] Final result Please view results for these [...] X10E9/L 212 189 204 200 214 251 @RESUFAST(IRON,TIBC,FERRITIN,IRONSAT,FOLATE,[id number]))@ Results from last 7 days Lab Units [...] For questions please call: Answering Service at [phone] Or Office at [phone] This note was created with the assistance [...] clinical progress daily. Griselda Ramirez PharmD Ext [phone] * Erika Crisostomo MD - 06/21/2025 3:47 [...] Extra Tubes. Procedure Abnormality Status --------- ------ [facility][[id number]] Final result Please view results for these [...] QUESTIONS FEEL FREE TO CALL: 1. OFFICE [phone] 2. ANSWERING SERVICE:[phone] YOU CAN CONTACT ME THROUGH [employer] SECURE CHAT DURING THE DAYTIME HOURS, IF NO RESPONSE AFTER 5 MINUTES CALL THE ANSWERING SERVICE This note was created with the assistance of a speech-recognition program. Although the intention is to generate a document that actually reflects the content of the visit, no guarantees can be provided that every mistake has been identified and corrected by editing. * Vinh Andre [facility] - 06/21/2025 9:56 AM EDT Pharmacokinetic Consult [...] TNK prior to arrival to [facility], heparin infusion bridge Drug-disease Interactions: - [...] patient's clinical progress daily. Vinh Andre, PharmD, [facility] [phone] * Myrtle Jacome MD - 06/21/2025 7:52 [...] Problem List Diagnosis CVA (cerebral vascular accident) ([facility]) Encephalopathy Recommendations/Plan: Continue PT, OT Max assist x2 bed mobility Family education Coumadin for AFib Consider retirement facility Will follow up with you for rehab needs Myrtle Jacome MD * Noreen Myers [facility] - 06/20/2025 10:20 AM EDT Pharmacokinetic Consult [...] clinical progress daily. Noreen Myers RPH Ext [phone] * Pat Araiza RN - 06/19/2025 8:52 PM EDT Images from the original note were not included. FOLLOW-UP: Post-Intensive Care Rounding Note Patient: Dariel Zabala : 1940 Age: 85 y.o. Length of Stay: 2 days Admission Diagnosis: CVA (cerebral vascular accident) ([facility]) [I63.9] Reviewing patient due to his recent transfer out from Intensive Care. Recorded vital signs are stable and the patient is not noted to be in any apparent distress. Telemetry and monitoring noted. Staff may call with any issues or concerns regarding his clinical presentation or stability. Thank you, Pat Araiza RN Rapid Response: [facility] * Rahat Mallory RPH - 06/19/2025 4:46 [...] days Admission Diagnosis: CVA (cerebral vascular accident) ([facility]) [I63.9] Reviewing patient due to his recent transfer out from Intensive Care. Recorded vital signs are stable and the patient is not noted to be in any apparent distress. Telemetry and monitoring noted. Staff may call with any issues or concerns regarding his clinical presentation or stability. Thank you, JOSSELYN LARA RN Rapid Response: [facility] * Pat Araiza RN - 06/18/2025 8:32 PM EDT Images from the original note were not included. FOLLOW-UP: Post-Intensive Care Rounding Note Patient: Dariel Zabala : 1940 Age: 85 y.o. Length of Stay: 1 days Admission Diagnosis: CVA (cerebral vascular accident) ([facility]) [I63.9] Reviewing patient due to his recent transfer out from Intensive Care. Recorded vital signs are stable and the patient is not noted to be in any apparent distress. Telemetry and monitoring noted. Staff may call with any issues or concerns regarding his clinical presentation or stability. Thank you, Pat Araiza RN Rapid Response: [facility] documented in this encounterMercy Health St. [facility]08-10-2025 Plan of care note * Plan of Care - Yonathan Joy RN - 06/23/2025 6:29 AM EDT Problem: Pain Goal: Patient goal is pain score less than 4, able to rest, and participant in treatment plan as appropriate Description: INTERVENTIONS: 1. Encourage patient or legal account representative to report early pain and ask [...] per policy 9. Teach patient or legal account representative interventions for comforting 06/23/2025627 by ERIN [...] at the bedside 7. Instruct patient/ patient account representative about use of safety devices 8. Include patient/ patient account representative in decisions related to safety Outcome: [...] hygiene technique. 7. Identify and instruct patient/patient account representative in use of appropriate isolation precautionsfor identified infection/symptoms. 8. Provide and discuss with patient/patient account representative on educational MDRO sheet. 9. Encourage and monitor nutritional status daily and consult title lawyer if indicated. 10. Implement neutropenic guidelines as needed. Outcome: Progressing Note: Evaluation of progress towards goal: Standard precaution maintained Problem: Knowledge Deficit Goal: Patient/patient account representative demonstrates understanding of disease process, treatment [...] supplement as ordered 13. Collaborate with clinical title lawyer 14. Include patient/ patient's account representative in decisions related to nutrition Outcome: [...] develop effective communication strategies 4. Include patient/patient account representative in decisions related to communication Outcome: [...] Collaborate with ancillary departments 14. Include patient/patient account representative in decisions related to anxiety Outcome: [...] 6. Collaborate with pastoral/spiritual care, social media content specialist, mental health counselor as needed. 7. Instruct patient on diversional activities such as physical activity, distraction, and deep breathing exercises to assist with coping 8. Involve patient's account representative in care Outcome: Progressing Note: Evaluation [...] Score of =/> 25 or indicated by [facility] Re[facility] Assessment Goal: Patient should be free from fall Description: Interventions: 1. [place] to environment 2. Hourly rounds addressing the [...] non-skid footwear 11. Teach patient and patient account representative to maintain environment for safety and [...] (cane, walker) within reach 19. Request patient account representative bring adaptive equipment/mobility aids from home or obtain and provide as needed 20. Consult pharmacy regarding effects of med's affecting mobility, cognition, and alternatives 21. Obtain physician order for PT if risk factors associated with mobility are present 22. Obtain physician order for OT as appropriate 23. Utilize diversional activities 24. Educate patient and patient account representative how to maintain a safe environment during visitationtimes (notify nurse prior to leaving bedside) 25. Consider appropriateness of medical or non-hospitalist medical director 26. Set up voiding schedule as appropriate (every 2 hours) Outcome: Progressing Note: Evaluation of progress towards goal: Fall bundles maintained [facility]08-09-2025 Consult note* Kaye Goel MD - 06/22/2025 4:04 PM EDTAssociated Order(s): IP CONSULT TO CARDIOLOGY Images from the original note were not included. [facility] [address] [place] [address] HISTORY & PHYSICAL / CONSULT NOTE Dariel Zabala PCP: Yanique Mcneill APRN-AVELINA Date of Admission: 06/17/2025 Date of Consultation: 06/22/2025 4:05 PM Consult for atrial fibrillation, bradycardia, intermittent pauses SUBJECTIVE History of Present Illness: Dariel Zabala is a 85 y.o. male w/ PMH RUFINO s/p R CEA, DMII, HLD, hypothyroidism, HTN, SIADH, recent TIA 05/2025, and permanent atrial fibrillation w/ [id number] 7 on warfarin who presented 06/17/25 with [...] Past Medical History: Diagnosis Date Atrial fibrillation ([facility]) BPH (benign prostatic hyperplasia) Broken nose CVA (cerebral vascular accident) ([facility]) 06/17/2025 Diabetes ([facility]) Epistaxis Hypertension Hyponatremia secondary to SIADH Hypothyroid [...] intravenous PRN Rocio Davis MD heparin infusion 07275 units/500 mL in 0.45% NaCl (50 units/mL [...] Yes Not In System Ref Prov coenzyme C08-nxihotc E 100-5 mg-unit capsule Take 100 mg [...] Extremities: No edema ASSESSMENT Permanent atrial fibrillation, [id number], on heparin gtt/warfarin L CVA s/p [...] This note was completed using a voice busboy system. Every effort was made to ensure accuracy. However, inadvertent computerized busboy errors may be present. [employer] Work Phone: [phone]) 832-937008-09-2025 Consult note* Kaye Goel MD - 06/22/2025 4:04 PM EDTAssociated Order(s): IP CONSULT TO CARDIOLOGY Images from the original note were not included. [facility] [address] [place] [address] HISTORY & PHYSICAL / CONSULT NOTE Dariel Bal Vj PCP: TANYA Lozano Date of Admission: 06/17/2025 Date of Consultation: 06/22/2025 4:05 PM Consult for atrial fibrillation, bradycardia, intermittent pauses SUBJECTIVE History of Present Illness: Dariel Zabala is a 85 y.o. male w/ PMH RUFINO s/p R CEA, DMII, HLD, hypothyroidism, HTN, SIADH, recent TIA 05/2025, and permanent atrial fibrillation w/ [id number] 7 on warfarin who presented 06/17/25 with RLE weakness and aphasia. He received TNK at OSH for R P1/P2 occlusion and subsequently transferred to [facility]. Head imaging w/o acute infarct, but did [...] Past Medical History: Diagnosis Date Atrial fibrillation ([facility]) BPH (benign prostatic hyperplasia) Broken nose CVA (cerebral vascular accident) ([facility]) 06/17/2025 Diabetes ([facility]) Epistaxis Hypertension Hyponatremia secondary to SIADH Hypothyroid [...] intravenous PRN Rocio Davis MD heparin infusion 89382 units/500 mL in 0.45% NaCl (50 units/mL [...] Yes Not In System Ref Prov coenzyme O05-kteqync E 100-5 mg-unit capsule Take 100 mg [...] Extremities: No edema ASSESSMENT Permanent atrial fibrillation, [id number] 8, on heparin gtt/warfarin L CVA s/p [...] This note was completed using a voice busboy system. Every effort was made to ensure accuracy. However, inadvertent computerized busboy errors may be present. * Richa Beyer MD - 06/20/2025 1:56 PM EDTAssociated Order(s): IP CONSULT TO PHYSICAL MEDICINE REHAB Images from the original note were not included. PHYSICAL MEDICINE AND REHABILITATION CONSULT Date of Admission: 06/17/2025 1:38 PM Referring Physician: Mirian Carranza MD PCP: Yanique Mcneill APRN-AVELINA Chief Compliant: Principal Problem: CVA (cerebral vascular accident) ([facility]) Reason for Consultation: Rehabilitation Candidacy and Rehab Mult Au Matic Operator Physicians/Services Consulting Providers Provider Service Specialty Richa [...] given to the patient and transferred to [facility]. CT perfusion study showed deficit in [...] Past Medical History: Diagnosis Date Atrial fibrillation ([facility]) BPH (benign prostatic hyperplasia) Broken nose CVA (cerebral vascular accident) ([facility]) 06/17/2025 Diabetes ([facility]) Epistaxis Hypertension Hyponatremia secondary to SIADH Hypothyroid [...] End: 06:30 06/20/2025 This is a standard [facility] EEG monitoring reportusing scalp and ear [...] or primary neurological disorders. Yaquelin Esparza MD Quality Assurance Inspector Neurology/Neurophysiology [facility] Recent Results (from the past [...] Tubes. Procedure Abnormality Status --------- ------ [employer] TOP[[id number]] Final result Please view results for these [...] Assessment/Plan Principal Problem: CVA (cerebral vascular accident) ([facility]) MRI is negative for ischemia Debility [...] by mouth in the morning. Taking coenzyme M97-kpavcad E 100-5 mg-unit capsule Take 100 mg [...] MAISHA VERGARA MD [facility]Y [facility] ANY QUESTIONS FEEL FREE TO CALL: 1. OFFICE [phone] 2. ANSWERING SERVICE:[phone] YOU CAN CONTACT ME THROUGH [employer] SECURE CHAT DURING THE DAYTIME HOURS, IF NO RESPONSE AFTER 5 MINUTES CALL THE ANSWERING SERVICE This note was created with the assistance of a speech-recognition program. Although the intention is to generate a document that actually reflects the content of the visit, no guarantees can be provided that every mistake has been identified and corrected by editing. documented in this encounterMer[facility] Health [facility]. [facility]08-09-2025 Plan of care note * Plan of Care - Debra Huggins RN - 06/22/2025 2:18 PM EDT Problem: Pain Goal: Patient goal is pain score less than 4, able to rest, and participant in treatment plan as appropriate Description: INTERVENTIONS: 1. Encourage patient or legal account representative to report early pain and ask [...] per policy 9. Teach patient or legal account representative interventions for comforting Outcome: Progressing Note: [...] at the bedside 7. Instruct patient/ patient account representative about use of safety devices 8. Include patient/ patient account representative in decisions related to safety Outcome: [...] hygiene technique. 7. Identify and instruct patient/patient account representative in use of appropriate isolation precautionsfor identified infection/symptoms. 8. Provide and discuss with patient/patient account representative on educational MDRO sheet. 9. Encourage and monitor nutritional status daily and consult title lawyer if indicated. 10. Implement neutropenic guidelines as needed. Outcome: Progressing Note: Evaluation of progress towards goal: continue to monitor labs, vitals, tele, IV site Problem: Knowledge Deficit Goal: Patient/patient account representative demonstrates understanding of disease process, treatment [...] supplement as ordered 13. Collaborate with clinical title lawyer 14. Include patient/ patient's account representative in decisions related to nutrition Outcome: [...] develop effective communication strategies 4. Include patient/patient account representative in decisions related to communication Outcome: Progressing Note: Evaluation of progress towards goal: [place], speak loudly and understands Problem: Potential for [...] Collaborate with ancillary departments 14. Include patient/patient account representative in decisions related to anxiety Outcome: [...] 6. Collaborate with pastoral/spiritual care, social media content specialist, mental health counselor as needed. 7. Instruct patient on diversional activities such as physical activity, distraction, and deep breathing exercises to assist with coping 8. Involve patient's account representative in care Outcome: Progressing Note: Evaluation [...] Progressing Note: Evaluation of progress towards goal: [place] at [place] Problem: Moderate - High Risk Fall Score Description: [place] Fall Score of =/> 25 or indicated by [facility] Re[facility] Assessment Goal: Patient should be free from fall Description: Interventions: 1. [place] to environment 2. Hourly rounds addressing the [...] non-skid footwear 11. Teach patient and patient account representative to maintain environment for safety and [...] (cane, walker) within reach 19. Request patient account representative bring adaptive equipment/mobility aids from home or obtain and provide as needed 20. Consult pharmacy regarding effects of med's affecting mobility, cognition, and alternatives 21. Obtain physician order for PT if risk factors associated with mobility are present 22. Obtain physician order for OT as appropriate 23. Utilize diversional activities 24. Educate patient and patient account representative how to maintain a safe environment during visitationtimes (notify nurse prior to leaving bedside) 25. Consider appropriateness of medical or non-hospitalist medical director 26. Set up voiding schedule as appropriate (every 2 hours) Outcome: Progressing Note: Evaluation of progress towards goal: no falls; syncopal episode per notes 06/21; up with assistonly; high fall risk - maintain precautions [facility]08-09-2025 Progress note* Discharge Planning Note - Norma Ritter - 06/22/2025 12:42 PM EDT DISCHARGE PLANNING NOTE Prior Auth approved for admission to : [facility] (P# ; F# ) Approval # [id number] Valid for Dates: 06/22/2025 - 06/28/[address] [facility]08-09-2025 Progress note* Discharge Planning Note - Norma Ritter - 06/22/2025 10:39 AM EDT DISCHARGE PLANNING NOTE Prior auth submitted to: [employer] Via: [employer] On behalf of : [facility] (P# ; F# ) Ref# [id number] [facility]08-09-2025 Progress note* Discharge Planning Note - CHARLES Lee - 06/22/2025 10:15 AM EDT DISCHARGE PLANNING NOTE Case discussed in daily transition rounds and chart reviewed by CN. Discharge Plan remains: [facility]. [facility] accepting referral. Social work contacted to inform of above and she was pleased with the news. is looking for patient's SSN. Social work task [facility] to start precert. CN will continue to follow and is available should any further needs arise. - CHARLES LEE 06/22/25 10:15 AM Insurance approved SNF stay. Patient is tentatively discharged tomorrow. Social work sent a messageto [facility] to inform of tentative discharge date. Social work contacted to inform of above and she is agreeable to transition plan. HENS started. - CHARLES LEE 06/22/25 2:[address] [facility]08-09-2025 Plan of care note* Plan of Care - Yonathan Joy RN - 06/22/2025 3:45 AM EDT Problem: Pain Goal: Patient goal is pain score less than 4, able to rest, and participant in treatment plan as appropriate Description: INTERVENTIONS: 1. Encourage patient or legal account representative to report early pain and ask [...] per policy 9. Teach patient or legal account representative interventions for comforting Outcome: Progressing Note: [...] at the bedside 7. Instruct patient/ patient account representative about use of safety devices 8. Include patient/ patient account representative in decisions related to safety Outcome: [...] hygiene technique. 7. Identify and instruct patient/patient account representative in use of appropriate isolation precautionsfor identified infection/symptoms. 8. Provide and discuss with patient/patient account representative on educational MDRO sheet. 9. Encourage and monitor nutritional status daily and consult title lawyer if indicated. 10. Implement neutropenic guidelines as needed. Outcome: Progressing Note: Evaluation of progress towards goal: Pt has no s/s of infection, standard precaution maintained Problem: Knowledge Deficit Goal: Patient/patient account representative demonstrates understanding of disease process, treatment [...] supplement as ordered 13. Collaborate with clinical title lawyer 14. Include patient/ patient's account representative in decisions related to nutrition Outcome: [...] develop effective communication strategies 4. Include patient/patient account representative in decisions related to communication Outcome: [...] Collaborate with ancillary departments 14. Include patient/patient account representative in decisions related to anxiety Outcome: [...] 6. Collaborate with pastoral/spiritual care, social media content specialist, mental health counselor as needed. 7. Instruct patient on diversional activities such as physical activity, distraction, and deep breathing exercises to assist with coping 8. Involve patient's account representative in care Outcome: Progressing Note: Evaluation [...] Score of =/> 25 or indicated by [facility] Assessment Goal: Patient should be free from fall Description: Interventions: 1. [place] to environment 2. Hourly rounds addressing the [...] non-skid footwear 11. Teach patient and patient account representative to maintain environment for safety and [...] (cane, walker) within reach 19. Request patient account representative bring adaptive equipment/mobility aids from home or obtain and provide as needed 20. Consult pharmacy regarding effects of med's affecting mobility, cognition, and alternatives 21. Obtain physician order for PT if risk factors associated with mobility are present 22. Obtain physician order for OT as appropriate 23. Utilize diversional activities 24. Educate patient and patient account representative how to maintain a safe environment during visitationtimes (notify nurse prior to leaving bedside) 25. Consider appropriateness of medical or non-hospitalist medical director 26. Set up voiding schedule as appropriate (every 2 hours) Outcome: Progressing Note: Evaluation of progress towards goal: Fall bundles maintained [facility]08-08-2025 Plan of care note* Plan of Care - Lauren Gaona RN - 06/21/2025 6:18 PM EDT Problem: Knowledge Deficit Goal: Patient/patient account representative demonstrates understanding of disease process, treatment [...] for adl's Problem: Knowledge Deficit Goal: Patient/patient account representative demonstrates understanding of disease process, treatment [...] Description: INTERVENTIONS: 1. Encourage patient or legal account representative to report early pain and ask [...] per policy 9. Teach patient or legal account representative interventions for comforting Outcome: Progressing Note: [...] at the bedside 7. Instruct patient/ patient account representative about use of safety devices 8. Include patient/ patient account representative in decisions related to safety Outcome: [...] hygiene technique. 7. Identify and instruct patient/patient account representative in use of appropriate isolation precautionsfor identified infection/symptoms. 8. Provide and discuss with patient/patient account representative on educational MDRO sheet. 9. Encourage and monitor nutritional status daily and consult title lawyer if indicated. 10. Implement neutropenic guidelines as [...] supplement as ordered 13. Collaborate with clinical title lawyer 14. Include patient/ patient's account representative in decisions related to nutrition Outcome: [...] develop effective communication strategies 4. Include patient/patient account representative in decisions related to communication Outcome: [...] Collaborate with ancillary departments 14. Include patient/patient account representative in decisions related to anxiety Outcome: [...] 6. Collaborate with pastoral/spiritual care, social media content specialist, mental health counselor as needed. 7. Instruct patient on diversional activities such as physical activity, distraction, and deep breathing exercises to assist with coping 8. Involve patient's account representative in care Outcome: Progressing Note: Evaluation [...] Score of =/> 25 or indicated by [facility] Assessment Goal: Patient should be free from fall Description: Interventions: 1. [place] to environment 2. Hourly rounds addressing the [...] non-skid footwear 11. Teach patient and patient account representative to maintain environment for safety and [...] (cane, walker) within reach 19. Request patient account representative bring adaptive equipment/mobility aids from home or obtain and provide as needed 20. Consult pharmacy regarding effects of med's affecting mobility, cognition, and alternatives 21. Obtain physician order for PT if risk factors associated with mobility are present 22. Obtain physician order for OT as appropriate 23. Utilize diversional activities 24. Educate patient and patient account representative how to maintain a safe environment during visitationtimes (notify nurse prior to leaving bedside) 25. Consider appropriateness of medical or non-hospitalist medical director 26. Set up voiding schedule as appropriate [...] Description: INTERVENTIONS: 1. Encourage patient or legal account representative to report early pain and ask [...] per policy 9. Teach patient or legal account representative interventions for comforting Outcome: Progressing Note: [...] at the bedside 7. Instruct patient/ patient account representative about use of safety devices 8. Include patient/ patient account representative in decisions related to safety Outcome: [...] hygiene technique. 7. Identify and instruct patient/patient account representative in use of appropriate isolation precautionsfor identified infection/symptoms. 8. Provide and discuss with patient/patient account representative on educational MDRO sheet. 9. Encourage and monitor nutritional status daily and consult title lawyer if indicated. 10. Implement neutropenic guidelines as [...] supplement as ordered 13. Collaborate with clinical title lawyer 14. Include patient/ patient's account representative in decisions related to nutrition Outcome: [...] develop effective communication strategies 4. Include patient/patient account representative in decisions related to communication Outcome: [...] Collaborate with ancillary departments 14. Include patient/patient account representative in decisions related to anxiety Outcome: [...] 6. Collaborate with pastoral/spiritual care, social media content specialist, mental health counselor as needed. 7. Instruct patient on diversional activities such as physical activity, distraction, and deep breathing exercises to assist with coping 8. Involve patient's account representative in care Outcome: Progressing Note: Evaluation [...] Score of =/> 25 or indicated by [facility] Assessment Goal: Patient should be free from fall Description: Interventions: 1. [place] to environment 2. Hourly rounds addressing the [...] non-skid footwear 11. Teach patient and patient account representative to maintain environment for safety and [...] (cane, walker) within reach 19. Request patient account representative bring adaptive equipment/mobility aids from home or obtain and provide as needed 20. Consult pharmacy regarding effects of med's affecting mobility, cognition, and alternatives 21. Obtain physician order for PT if risk factors associated with mobility are present 22. Obtain physician order for OT as appropriate 23. Utilize diversional activities 24. Educate patient and patient account representative how to maintain a safe environment during visitationtimes (notify nurse prior to leaving bedside) 25. Consider appropriateness of medical or non-hospitalist medical director 26. Set up voiding schedule as appropriate (every 2 hours) Outcome: Progressing Note: Evaluation of progress towards goal: free of fall this shift Problem: Pain Goal: Patient goal is pain score less than 4, able to rest, and participant in treatment plan as appropriate Description: INTERVENTIONS: 1. Encourage patient or legal account representative to report early pain and ask [...] per policy 9. Teach patient or legal account representative interventions for comforting Outcome: Progressing Note: [...] at the bedside 7. Instruct patient/ patient account representative about use of safety devices 8. Include patient/ patient account representative in decisions related to safety Outcome: [...] at the bedside 7. Instruct patient/ patient account representative about use of safety devices 8. Include patient/ patient account representative in decisions related to safety Outcome: [...] hygiene technique. 7. Identify and instruct patient/patient account representative in use of appropriate isolation precautionsfor identified infection/symptoms. 8. Provide and discuss with patient/patient account representative on educational MDRO sheet. 9. Encourage and monitor nutritional status daily and consult title lawyer if indicated. 10. Implement neutropenic guidelines as [...] supplement as ordered 13. Collaborate with clinical title lawyer 14. Include patient/ patient's account representative in decisions related to nutrition Outcome: [...] develop effective communication strategies 4. Include patient/patient account representative in decisions related to communication Outcome: [...] as caffeine and (more content not included)... [facility]08-08-2025 Progress note* Discharge Planning Note - Martina Mckeon - 06/21/2025 3:45 PM EDT DISCHARGE PLANNING NOTE Referral sent to [facility] (P# ; F# ) [facility]08-08-2025 Progress note* Discharge Planning Note [...] Facility/Service Name NA SNF Name [facility] Does the patient need discharge transportation arranged? Yes Transportation Arranged Ambulance Mobility issues discussed with transportation provider Yes Patient choice offered Yes List Provided Yes [facility] List Provided Snf Facility Financial Disclosure Provided for In-Network Referral Yes DISCHARGE PLANNING NOTE CN spoke w pts , SNF choice is [facility]. She did n ot have a 2nd choice. CN asked her to review list for dditional choices. CN tasked for referral to [facility]. Barriers: SNFaccept. Will need precert. CTbrain.Rohini Mcintyre RN [facility]08-08-2025 Nurse Note* Lauren Gaona RN - 06/21/2025 1:[address] Crisostomo, restart the heparin drip at this time, CTB negative. Restart at prior rate. Recheck antixa in [address] [facility]08-08-2025 Progress note* Discharge Planning Note - Rohini Mcintyre RN - 06/21/2025 12:44 PM EDT DISCHARGE PLANNING NOTE PT/OT rec SNF. CN called and left Voicemail for pts . Pt not appropriate for [facility] IPR. Need SNF choices. CN also sent SNF list Via careport to pts cell phone to select choices. Await response. Rohini Mcin[facility] RN [facility] [id number] Progress note* PT/OT/SPECIAL MAKEUP FX ARTIST INSTRUCTOR - LU Enriquez - 06/21/2025 9:58 AM EDT Occupational Therapy Re-Evaluation Discharge Recommendations for Safe Patient Transition Discharge Recommendations: Post acute - moderate Post Acute Moderate Rehab Needs: Recommend moderate intensity rehab, Tolerate 1- 2 hrs of therapy 3-5 days/wk, Subacute or chronic functional impairment Current Impairments Informing Therapy Recommendation: Ambulation status/safety, Cognition, Fall risk, ADL status, Endurance level, Communication needs Modified [place] Level of Disability: Moderately severe disability 0= [...] None Scoring Daily Activity Raw Score: 14 [facility] G Code Modifier: CK Modified chip index: [...] Past Medical History: Diagnosis Date Atrial fibrillation ([facility]) BPH (benign prostatic hyperplasia) Broken nose CVA (cerebral vascular accident) ([facility]) 06/17/2025 Diabetes ([facility]) Epistaxis Hypertension Hyponatremia secondary to SIADH Hypothyroid [...] Equipment: waker, chair alarm, gait belt, telemetry. Telemetry/Brush Operator: Yes Oxygen Used: room air Other: [...] Patient will perform toilet transfers with Modified [place] Dates: Start: 06/21/25 Expected End: 07/19/25 Description: [...] problems. Principal Problem: CVA (cerebral vascular accident) ([facility]) [facility]08-08-2025 Progress note* PT/OT/SPECIAL MAKEUP FX ARTIST INSTRUCTOR - Ayaan Campos, PT - 06/21/2025 9:56 [...] 6 Clicks: Basic Mobility Raw Score: 15 [facility] Code Modifier: CK SwePASS score = 23/36 [...] Past Medical History: Diagnosis Date Atrial fibrillation ([facility]) BPH (benign prostatic hyperplasia) Broken nose CVA (cerebral vascular accident) ([facility]) 06/17/2025 Diabetes ([facility]) Epistaxis Hypertension Hyponatremia secondary to SIADH Hypothyroid [...] gait belt, wheeled walker, IV, chair/bed alarm Telemetry/Brush Operator: Yes Oxygen Used: room air Other: [...] problems. Principal Problem: CVA (cerebral vascular accident) ([facility]) [facility]08-08-2025 Nurse Note* Lauren Gaona RN - 06/21/2025 9:27 AM EDT In chair, alert and responding. BP 98/65. Dr Crisostomo returns page and updated on events. [facility]08-08-2025 Nurse Note* Lauren Gaona RN - 06/21/2025 9:22 AM EDT Working with physical and occupational therapy. Ambulated to bathroom, had been alert and conversing, suddenly became unresponsive, staring and leaning to left. Resolved after 2-3 minutes, then more alert and was able to state name. Assisted to chair. Dr Kranthi gay. [facility]08-07-2025 Plan of care note* Plan of Care - Nicole Sparks RN - 06/20/2025 11:40 PM EDT Problem: Pain Goal: Patient goal is pain score less than 4, able to rest, and participant in treatment plan as appropriate Description: INTERVENTIONS: 1. Encourage patient or legal account representative to report early pain and ask [...] per policy 9. Teach patient or legal account representative interventions for comforting Outcome: Progressing Note: [...] at the bedside 7. Instruct patient/ patient account representative about use of safety devices 8. Include patient/ patient account representative in decisions related to safety Outcome: [...] hygiene technique. 7. Identify and instruct patient/patient account representative in use of appropriate isolation precautionsfor identified infection/symptoms. 8. Provide and discuss with patient/patient account representative on educational MDRO sheet. 9. Encourage and monitor nutritional status daily and consult title lawyer if indicated. 10. Implement neutropenic guidelines as needed. Outcome: Progressing Note: Evaluation of progress towards goal: No s/s of infection at this time Problem: Knowledge Deficit Goal: Patient/patient account representative demonstrates understanding of disease process, treatment [...] Score of =/> 25 or indicated by [facility] Assessment Goal: Patient should be free from fall Description: Interventions: 1. [place] to environment 2. Hourly rounds addressing the [...] non-skid footwear 11. Teach patient and patient account representative to maintain environment for safety and [...] (cane, walker) within reach 19. Request patient account representative bring adaptive equipment/mobility aids from home or obtain and provide as needed 20. Consult pharmacy regarding effects of med's affecting mobility, cognition, and alternatives 21. Obtain physician order for PT if risk factors associated with mobility are present 22. Obtain physician order for OT as appropriate 23. Utilize diversional activities 24. Educate patient and patient account representative how to maintain a safe environment during visitationtimes (notify nurse prior to leaving bedside) 25. Consider appropriateness of medical or non-hospitalist medical director 26. Set up voiding schedule as appropriate (every 2 hours) Outcome: Progressing Note: Evaluation of progress towards goal: pt free from fall at this time Problem: Knowledge Deficit Goal: Patient/patient account representative demonstrates understanding of disease process, treatment [...] alert and oriented to person and age [employer] [id number] Progress note* Situational Awareness - Gary Coronado MD - 06/20/2025 5:36 PM EDT [facility] Transfer Accept Note I have received a request for transfer of primary service for this patient from the neurology team care of neurology attending, clinical handoff received from Neurology resident. [facility] will assume careas primary team of this patient 7:00 a.m. 06/21/2025. [employer] Work Phone: 1(932) 840-838008-07-2025 Plan of care note* Plan of Care [...] also shows no change in renal function. [employer] [id number] Consult note* Richa Beyer MD - 06/20/2025 1:56 PM EDTAssociated Order(s): IP CONSULT TO PHYSICAL MEDICINE REHAB Images from the original note were not included. PHYSICAL MEDICINE AND REHABILITATION CONSULT Date of Admission: 06/17/2025 1:38 PM Referring Physician: Mirian Carranza MD PCP: TANYA Lozano Chief Compliant: Principal Problem: CVA (cerebral vascular accident) ([facility]) Reason for Consultation: Rehabilitation Candidacy and Rehab Mult Au Matic Operator Physicians/Services Consulting Providers Provider Service Specialty MD [...] given to the patient and transferred to [facility]. CT perfusion study showed deficit in [...] positivefor - gait disturbance and muscular weakness [facility] Past Medical History: Diagnosis Date Atrial fibrillation ([facility]) BPH (benign prostatic hyperplasia) Broken nose CVA (cerebral vascular accident) ([facility]) 06/17/2025 Diabetes ([facility]-HCC) Epistaxis Hypertension Hyponatremia secondary [...] End: 06:30 06/20/2025 This is a standard [facility] EEG monitoring reportusing scalp and ear [...] or primary neurological disorders. Yaquelin Esparza MD Quality Assurance Inspector Neurology/Neurophysiology [facility] Recent Results (from the past [...] Tubes. Procedure Abnormality Status --------- ------ PST TOP[[id number]] Final result Please view results for these [...] Assessment/Plan Principal Problem: CVA (cerebral vascular accident) ([facility]) MRI is negative for ischemia Debility [...] you for the referral. Richa Beyer MD [employer] Work Phone: [phone]) 647-145408-07-2025 Progress note* Discharge Planning Note - Rohini Mcintyre RN - 06/20/2025 12:33 PM EDT DISCHARGE PLANNING NOTE Pt will need updated PT/OT notes sent to [facility]. When pt/ot worked w him yesterday they rec SNF, but he was much less alert. Pt doing better today. Therapy will work w him tomorrow morning 06/21to see if IPR appropriate. Barriers: IPR accept, pt/ot to see, precert. Rohini Mcintyre RN [facility]08-07-2025 Consult note* Maisha Vergara MD [...] by mouth in the morning. Taking coenzyme [id number] E 100-5 mg-unit capsule Take 100 mg [...] MAISHA VERGARA MD [facility] ANY QUESTIONS FEEL FREE TO CALL: 1. OFFICE [phone] 2. ANSWERING SERVICE:[phone] YOU CAN CONTACT ME THROUGH [employer] SECURE CHAT DURING THE DAYTIME HOURS, IF NO RESPONSE AFTER 5 MINUTES CALL THE ANSWERING SERVICE This note was created with the assistance of a speech-recognition program. Although the intention is to generate a document that actually reflects the content of the visit, no guarantees can be provided that every mistake has been identified and corrected by editing. [employer]08-07-2025 Progress note* Discharge Planning Note - Brianna Verduzco - 06/20/2025 10:36 AM EDT DISCHARGE PLANNING NOTE I received a voice mail from Franc at [facility] phone [phone], she says she has left a few messages for an update for patient. This is the only vm I have received. Sending an [employer] chat to Rohini / Vivienne / Mesha with information [employer]08-06-2025 Plan of care note* Plan of Care - Nicole Sparks RN - 06/19/2025 11:13 PM EDT Problem: Pain Goal: Patient goal is pain score less than 4, able to rest, and participant in treatment plan as appropriate Description: INTERVENTIONS: 1. Encourage patient or legal account representative to report early pain and ask [...] per policy 9. Teach patient or legal account representative interventions for comforting Outcome: Progressing Note: [...] at the bedside 7. Instruct patient/ patient account representative about use of safety devices 8. Include patient/ patient account representative in decisions related to safety Outcome: [...] hygiene technique. 7. Identify and instruct patient/patient account representative in use of appropriate isolation precautionsfor identified infection/symptoms. 8. Provide and discuss with patient/patient account representative on educational MDRO sheet. 9. Encourage and monitor nutritional status daily and consult title lawyer if indicated. 10. Implement neutropenic guidelines as [...] supplement as ordered 13. Collaborate with clinical title lawyer 14. Include patient/ patient's account representative in decisions related to nutrition Outcome: [...] Score of =/> 25 or indicated by [facility] Assessment Goal: Patient should be free from fall Description: Interventions: 1. [place] to environment 2. Hourly rounds addressing the [...] non-skid footwear 11. Teach patient and patient account representative to maintain environment for safety and [...] (cane, walker) within reach 19. Request patient account representative bring adaptive equipment/mobility aids from home or obtain and provide as needed 20. Consult pharmacy regarding effects of med's affecting mobility, cognition, and alternatives 21. Obtain physician order for PT if risk factors associated with mobility are present 22. Obtain physician order for OT as appropriate 23. Utilize diversional activities 24. Educate patient and patient account representative how to maintain a safe environment during visitationtimes (notify nurse prior to leaving bedside) 25. Consider appropriateness of medical or non-hospitalist medical director 26. Set up voiding schedule as appropriate (every 2 hours) Outcome: Progressing Note: Evaluation of progress towards goal: pt free from fall at this time safety measures in place [employer] [id number] Progress note* PT/OT/SPECIAL MAKEUP FX ARTIST INSTRUCTOR - Ayaan Campos, PT - 06/19/2025 2:49 [...] P1/P2 occlusion. TNK given and transfer to [facility]. On arrival, NIHSS = 0 CT [...] Past Medical History: Diagnosis Date Atrial fibrillation ([facility]) BPH (benign prostatic hyperplasia) Broken nose CVA (cerebral vascular accident) ([facility]) 06/17/2025 Diabetes ([facility]) Epistaxis Hypertension Hyponatremia secondary to SIADH Hypothyroid Lumbar spondylosis TIA (transient ischemic attack) Past Surgical History: Procedure Laterality Date NECK SURGERY plate in neck per Modified [place] Level of Disability: Severe disability 0= No [...] tolerated Equipment: repositioning sling, IV, bed alarm Telemetry/Brush Operator: Yes Oxygen Used: room air Other: [...] with rails Stairs to Enter: 2 from publicist Rails: Right Stairs in Home: 0 Bathroom Shower/Tub: Walk-in shower Bathroom Toilet: Standard Home Equipment: Rolling walker Other : Home info from EMR review of recent therapy eval at [facility] - pt not able to answer questionsthis date and no family present. 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 Principal Problem: CVA (cerebral vascular accident) ([facility]) [facility]08-06-2025 Progress note* PT/OT/SPECIAL MAKEUP FX ARTIST INSTRUCTOR - Veronica Rivera OTR/Krishan - 06/19/2025 2:48 PM EDT Occupational Therapy Evaluation Discharge Recommendations for Safe Patient Transition Discharge Recommendations: Post acute - moderate Post Acute Moderate Rehab Needs: Recommend moderate intensity rehab, Tolerate 1- 2 hrs of therapy 3-5 days/wk, Subacute or chronic functional impairment Current Impairments Informing Therapy Recommendation: Ambulation status/safety, Cognition, Fall risk, ADL status, Communication needs, Endurance level Modified Cascade Level of Disability: Severe disability 0= No [...] lot Scoring Daily Activity Raw Score: 12 [facility] G Code Modifier: CL Modifed chip index; [...] Past Medical History: Diagnosis Date Atrial fibrillation ([facility]) BPH (benign prostatic hyperplasia) Broken nose CVA (cerebral vascular accident) ([facility]) 06/17/2025 Diabetes ([facility]) Epistaxis Hypertension Hyponatremia secondary to SIADH Hypothyroid [...] per early mobility guidelines. Equipment: telemetry, IV Telemetry/Brush Operator: Yes Oxygen Used: room air Other: [...] problems. Principal Problem: CVA (cerebral vascular accident) ([facility]) [employer] [id number] Nurse Note* Deepali Mathew RN - 06/19/2025 10:55 AM EDT RN concerned as patient is extremely drowsy not following commands or speaking, RN called neuro resident Dr. Davis who states she thinks patient is just tired and will re assess later. [facility] [id number] Progress note* Discharge Planning Note - Dawson [...] Home with home health services Facility/Service Name [facility] Case discussed in daily transition rounds and chart reviewed by CN. Barriers to discharge include PT/OT, PMR to see, Discharge Plan remains: Home with HHC vs IPR. [facility] will accept. [facility]- will need PT/OT notes as soon as they are in. CN will continue to follow and is available should any further needs arise. - Dawson Yost RN 06/19/25 8:[address] [facility]08-05-2025 Plan of care note* Plan of Care - Leigha Eden RN - 06/18/2025 10:49 PM EDT Problem: Pain Goal: Patient goal is pain score less than 4, able to rest, and participant in treatment plan as appropriate Description: INTERVENTIONS: 1. Encourage patient or legal account representative to report early pain and ask [...] per policy 9. Teach patient or legal account representative interventions for comforting Outcome: Progressing Note: [...] at the bedside 7. Instruct patient/ patient account representative about use of safety devices 8. Include patient/ patient account representative in decisions related to safety Outcome: [...] hygiene technique. 7. Identify and instruct patient/patient account representative in use of appropriate isolation precautionsfor identified infection/symptoms. 8. Provide and discuss with patient/patient account representative on educational MDRO sheet. 9. Encourage and monitor nutritional status daily and consult title lawyer if indicated. 10. Implement neutropenic guidelines as needed. Outcome: Progressing Note: Evaluation of progress towards goal: Pt should remain free from infection during this shift. Standard precautions used during care. Problem: Knowledge Deficit Goal: Patient/patient account representative demonstrates understanding of disease process, treatment [...] be free from fall Description: Interventions: 1. [place] to environment 2. Hourly rounds addressing the [...] non-skid footwear 11. Teach patient and patient account representative to maintain environment for safety and [...] (cane, walker) within reach 19. Request patient account representative bring adaptive equipment/mobility aids from home or obtain and provide as needed 20. Consult pharmacy regarding effects of med's affecting mobility, cognition, and alternatives 21. Obtain physician order for PT if risk factors associated with mobility are present 22. Obtain physician order for OT as appropriate 23. Utilize diversional activities 24. Educate patient and patient account representative how to maintain a safe environment during visitationtimes (notify nurse prior to leaving bedside) 25. Consider appropriateness of medical or non-hospitalist medical director 26. Set up voiding schedule as appropriate (every 2 hours) Outcome: Progressing Note: Evaluation of progress towards goal: Pt should remain free from fall during this shift. Bed in lowest position and locked, side rails up /4, personal items and call light within reach, non skid socks applied, environment clear of hazards. [facility] [employer] [id number] Nurse Note* Lauren Gaona RN - 06/18/2025 6:26 PM EDT Patient confused, on heparin drip, constantly trying to get out of bed, hitting, kicking and tryingto bite staff. Unable to follow direction. Dr Davis notified, says will order seroquel. Notified ofQT from EKG done 06/17 at [place]. [facility] [employer] [id number] Progress note* Discharge Planning Note - Martina Mckeon - 06/18/2025 1:25 PM EDT DISCHARGE PLANNING NOTE Referral sent to [facility] in [place] (P# ; F# ) [facility]08-05-2025 Progress note* Discharge Planning Note - Brianna Verduzco - 06/18/2025 1:04 PM EDT DISCHARGE PLANNING NOTE Referral sent to. [facility] in [place], [place] (P# ; F# ) [employer]08-05-2025 Progress note* Discharge Planning Note - Dawson [...] Acute rehab, Home with home health services Textile Machinery Sales Representative met with patient, introduced self, and explained role. Patient educated on safe discharge plan. Pt admitted 06/17/2025 with CVA (cerebral vascular accident) (CMS-HCC) [I63.9] per chart review. Consults: Neurology Discharge Barriers per Daily Transition Rounds and chart review: PT/OT, s/p TNK- bedrest, MRi, echo. 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 Caregiver's personal limitations include Patient's feels she [...] rehab. PCP: TANYA Lozano Pharmacy: [facility] PCP and pharmacy confirmed with patient. CN offered to assist with follow up appointment arrangements; . TANYA Lozano added to Follow Up Providers for Summary of Care communication. Per patient self-report: Drug use: denies Smoking: denies ETOH Use: rarely Current discharge plan is: Home with [facility] vs acute rehab pending PT/OT eval. CN spoke with patient'swife she has [facility] past. Tasked to send referrals to [facility] and to [facility]. Services Requested: Services Requested Patient expects [...] Evaluation of progress towards goal: Home with [facility] Autogenerated Goal Will continue to follow as plan of care develops. CN discussed benefits and importance of medication compliance and follow ups. Please feel free to reach out for any discharge planning questions. - Dawson Yost RN 06/18/25 12:[address] [facility]08-05-2025 Progress note* PT/OT/SPECIAL MAKEUP FX ARTIST INSTRUCTOR - Zaire Sierra CCC- SPECIAL MAKEUP FX ARTIST INSTRUCTOR - 06/18/2025 10:35 AM EDT Speech Therapy Evaluation Bedside Swallow/Feeding Evaluation Speech & Language Cognitive Evaluation Discharge Recommendations for Safe Patient Transition SPECIAL MAKEUP FX ARTIST INSTRUCTOR Post Discharge Therapy Recommendations: Continue ST services [...] decline resulting from CVA. Prognosis Services: Skilled SPECIAL MAKEUP FX ARTIST INSTRUCTOR services to address above deficits Prognosis/Potential: Good Considerations: Age, Cognition Discharge Recommendations for Safe Patient Transition SPECIAL MAKEUP FX ARTIST INSTRUCTOR Post Discharge Therapy Recommendations: Continue ST services [...] should be further evaluated. Prognosis Services: Skilled SPECIAL MAKEUP FX ARTIST INSTRUCTOR services to address the above deficits Prognosis/Potential: [...] Dysphagia Problem: Swallowing Dates: Start: 06/18/25 Disciplines: SPECIAL MAKEUP FX ARTIST INSTRUCTOR Goal: STG: Patient will complete safety strategies independently during PO intake 90% of the time Dates: Start: 06/18/25 Expected End: 07/22/25 Disciplines: SPECIAL MAKEUP FX ARTIST INSTRUCTOR Template: ST - Rehab Speech Problem: Auditory Comprehension Dates: Start: 06/18/25 Disciplines: SPECIAL MAKEUP FX ARTIST INSTRUCTOR Goal: LTG: Patient will comprehend communication related to basic medical and social needs and utilize compensatory strategies to maintain safety in a functional living environment Dates: Start: 06/18/25 Expected End: 07/22/25 Disciplines: SPECIAL MAKEUP FX ARTIST INSTRUCTOR Goal: STG: Patient will answer simple yes/no questions with 90% accuracy with minimal cueing. Dates: Start: 06/18/25 Expected End: 07/22/25 Disciplines: SPECIAL MAKEUP FX ARTIST INSTRUCTOR Goal: STG: Patient will answer complex yes/no questions with 90% accuracy with minimal cueing Dates: Start: 06/18/25 Expected End: 07/22/25 Disciplines: SPECIAL MAKEUP FX ARTIST INSTRUCTOR Problem: Verbal Expression Dates: Start: 06/18/25 Disciplines: SPECIAL MAKEUP FX ARTIST INSTRUCTOR Goal: LTG: Patient will utilize compensatory strategies to communicate wants and needs effectively to different conversational partners, maintain safety and participate socially in a functional living environment Dates: Start: 06/18/25 Expected End: 07/22/25 Disciplines: SPECIAL MAKEUP FX ARTIST INSTRUCTOR Goal: STG: Patient will complete simple to complex divergent and convergent naming tasks with 90% accuracy with minimal cueing to improve thought organization Dates: Start: 06/18/25 Expected End: 07/22/25 Disciplines: SPECIAL MAKEUP FX ARTIST INSTRUCTOR Goal: STG: Patient will use word retrieval strategies during structured interactions to improve functional communication during activities of daily living with 90% accuracy with minimal cueing Dates: Start: 06/18/25 Expected End: 07/22/25 Disciplines: SPECIAL MAKEUP FX ARTIST INSTRUCTOR Speech Therapy Care Plan (Resolved) There are no resolved problems. Principal Problem: CVA (cerebral vascular accident) ([facility]) [facility]08-05-2025 Progress note* PT/OT/SPECIAL MAKEUP FX ARTIST INSTRUCTOR - LU Chino - 06/18/2025 7:37 AM EDT Occupational Therapy OT Type of Visit: Medical deferral Reason For Medical Deferral: Activity limitations Activity Limitations: Strict bedrest (Per TNK protocol. Will continue to follow.) [facility]08-05-2025 Progress note* PT/OT/SPECIAL MAKEUP FX ARTIST INSTRUCTOR - Ayaan Campos PT - 06/18/2025 7:28 AM EDT Physical Therapy PT Type of Visit: Medical deferral (strict bedrest s/p TNK per protocol) Reason For Medical Deferral: Activity limitations Activity Limitations: Strict bedrest Will check back as appropriate. [facility]08-05-2025 Plan of care note* Plan of Care - Lin Rhodes RN - 06/18/2025 7:14 AM EDT Problem: Pain Goal: Patient goal is pain score less than 4, able to rest, and participant in treatment plan as appropriate Description: INTERVENTIONS: 1. Encourage patient or legal account representative to report early pain and ask [...] per policy 9. Teach patient or legal account representative interventions for comforting Outcome: Progressing Note: [...] at the bedside 7. Instruct patient/ patient account representative about use of safety devices 8. Include patient/ patient account representative in decisions related to safety Outcome: [...] hygiene technique. 7. Identify and instruct patient/patient account representative in use of appropriate isolation precautionsfor identified infection/symptoms. 8. Provide and discuss with patient/patient account representative on educational MDRO sheet. 9. Encourage and monitor nutritional status daily and consult title lawyer if indicated. 10. Implement neutropenic guidelines as needed. Outcome: Progressing Note: Evaluation of progress towards goal: Labs and vitals monitored as ordered. Medications administered as ordered. Patient remains free from infection at this time. Problem: Moderate - High Risk Fall Score Description: Valenzuela Fall Score of =/> 25 or [facility] Goal: Patient should be free from fall Description: Interventions: 1. [place] to environment 2. Hourly rounds addressing the [...] non-skid footwear 11. Teach patient and patient account representative to maintain environment for safety and [...] (cane, walker) within reach 19. Request patient account representative bring adaptive equipment/mobility aids from home or obtain and provide as needed 20. Consult pharmacy regarding effects of med's affecting mobility, cognition, and alternatives 21. Obtain physician order for PT if risk factors associated with mobility are present 22. Obtain physician order for OT as appropriate 23. Utilize diversional activities 24. Educate patient and patient account representative how to maintain a safe environment during visitationtimes (notify nurse prior to leaving bedside) 25. Consider appropriateness of medical or non-hospitalist medical director 26. Set up voiding schedule as appropriate (every 2 hours) Outcome: Progressing Note: Evaluation of progress towards goal: Fall risk assessment preformed and safety measures in place. Education given to family/patient. Will continue to monitor. [facility] [employer] [id number] Plan of care note* Plan of Care - Rich Nelson RN - 06/17/2025 7:23 PM EDT Problem: Pain Goal: Patient goal is pain score less than 4, able to rest, and participant in treatment plan as appropriate Description: INTERVENTIONS: 1. Encourage patient or legal account representative to report early pain and ask [...] per policy 9. Teach patient or legal account representative interventions for comforting Outcome: Progressing Note: [...] at the bedside 7. Instruct patient/ patient account representative about use of safety devices 8. Include patient/ patient account representative in decisions related to safety Outcome: [...] hygiene technique. 7. Identify and instruct patient/patient account representative in use of appropriate isolation precautionsfor identified infection/symptoms. 8. Provide and discuss with patient/patient account representative on educational MDRO sheet. 9. Encourage and monitor nutritional status daily and consult title lawyer if indicated. 10. Implement neutropenic guidelines as needed. Outcome: Progressing Note: Evaluation of progress towards goal: Patient remains free from signs of infection at this time. Will continue to monitor. Problem: Knowledge Deficit Goal: Patient/patient account representative demonstrates understanding of disease process, treatment [...] Score of =/> 25 or indicated by [facility] Assessment Goal: Patient should be free from fall Description: Interventions: 1. [place] to environment 2. Hourly rounds addressing the [...] non-skid footwear 11. Teach patient and patient account representative to maintain environment for safety and [...] (cane, walker) within reach 19. Request patient account representative bring adaptive equipment/mobility aids from home or obtain and provide as needed 20. Consult pharmacy regarding effects of med's affecting mobility, cognition, and alternatives 21. Obtain physician order for PT if risk factors associated with mobility are present 22. Obtain physician order for OT as appropriate 23. Utilize diversional activities 24. Educate patient and patient account representative how to maintain a safe environment during visitationtimes (notify nurse prior to leaving bedside) 25. Consider appropriateness of medical or non-hospitalist medical director 26. Set up voiding schedule as appropriate (every 2 hours) Outcome: Progressing Note: Evaluation of progress towards goal: Fall risk assessment preformed and safety measures in place. Education given to family/patient. Will continue to monitor. Additional Comments: [facility]07-25-2025 NotePatient Education Nephrology Hyponatremia Hyponatremia [...] Follow these instructions at home: ??? Take [id number]-ndh-hhtjfiy and prescription medicines only as told by [...] provider. Document Revised: 05/11/2022 Document Reviewed: 05/11/2022 MaPS Patient Education ? 2023 [employer].[facility] 06-05-2025 History of Present illness Narrative* Flip Dubose RN - 06/05/2025 7:02 PM EDT Pt discharge- pt taken downstairs by wheelchair by son and by car ro [facility] . Son givenmed s, discharge instructions . 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 . Nicole spoke with Gladys , Kishore by phone. . Kishore is adament, despite Sparkman mild confusion, that she and her son want to drive Alexx back home to [place] to care for him at home tonight [...] 147 See Reflexed IPF Result Warfarin dose FLIGHT SURVEYOR: 5 mg MWF and 2.5 mg all [...] 06/05/2025 10:32 AM EDT Physical Therapy Facility/Department[facility] Initial Evaluation Patient Name: Dariel [...] within reach, Gait belt, Left in chair -[facility] Basic Mobility - Inpatient How [...] 3-5 steps with a railing?: A Little [facility] Inpatient Mobility Raw Score : 22 [facility] Inpatient T-Scale Score : 53.28 Mobility Inpatient [facility] 0-100% Score: 20.91 Mobility Inpatient [facility] G-Code Modifier : CJ Restrictions/Precautions Restrictions/Precautions Activity [...] Level of Assist for Transfers: Independent 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 Patient initially presented to [facility] yesterday and was treated with Afrin and nasal pressure, patient was discharged home with ENT follow-up. When patient returned home he blew his nose and resulted in brisk bleeding from the left nare prompting him to return to the ER yesterday evening. He had bilateral nasal packing with Rhino Rocket's placed and was transferred to [facility] evaluation. Patient was seen by ENT upon [...] this chart was generated using voice recognition Pix[employer] dictation software. Although every effort was made to ensure the accuracy of this automated busboy, some errors in busboy may have occurred. * Geo Rehman [facility] - 06/04/2025 3:32 PM EDT Pharmacy Note Warfarin Consult follow-up Recent Labs 06/04/25 1423 INR 1.8 Recent Labs 06/02/25 1308 06/03/25 0618 HGB 12.3* 12.3* HCT 36.5* 35.2* PLT 147 See Reflexed IPF Result Warfarin dose FLIGHT SURVEYOR: 5 mg MWF and 2.5 mg all [...] MIRELES MD Pediatric Otolaryngology-Head and Neck Surgery [facility] Otol[facility]ology group Office ph# [phone] Also available in [employer] * Rowena Duong [facility] - 06/03/2025 11:31 AM EDT Pharmacy Note [...] from the original note were not included. [facility] Office: [phone] Viktor Monet DO, Jermaine Gustafson DO, Brigida [...] Trivedi, AVELINA, Keren Gutierrez, AVELINA, Beto Guzman, GLOBAL PROCESS OWNER, Kemi Hdz, CRISTA, Janelle Luna, AVELINA, Celena Johnson, AVELINA, Annia Rogers, AVELINA, Christina Cuevas, AVELINA, Marline Vila PA-C, Adore Cueto, AVELINA, Emily Chiang, GLOBAL PROCESS OWNER, Maria Elena De La Torre, GLOBAL PROCESS OWNER, Venessa Mitchell, AVELINA, RAMÓN FormanC, Rachel Nascimento PA-C, Lorna Salazar, AVELINA, Edwina Cole, PHLEBOTOMY LAB ASSISTANT, Alex Castillo, AVELINA, eLelee Easley, AVELINA [facility] IN-PATIENT SERVICE [facility] Progress Note 06/03/2025 8:19 AM Name: Dariel Zabala Acct: [id number] Room: [address] [place] [address] Day: 1 Admit Date: 06/02/2025 10:01 AM [...] hypertension, type2 diabetes, SIADH initially presented to [place] emergency department for nosebleeding after mechanical fall out of a chair. CT scan reportedly showed nasal bone fracture. He was transferred to [place] for ENT evaluation. ENT deflated nasal packings [...] , PHART , PH , POCPCO2 , RDI3RFG , PCO2 , POCPO2 , PO2ART , PO2 , POCHCO3 , BVZ3ETY , HCO3 , NBEA , PBEA , BEART , BE , THGBART , THB , WYO5CHS , XSSI0SDT , C1ECLKEN , O2SAT , FIO2 No results found [...] DAIGLE MD Pediatric Otolaryngology-Head and Neck Surgery [facility] Otolaryngology group Office ph# [phone] Also available in [employer] * Juju Garcia RPH - 06/02/2025 2:42 [...] 06/02/2025 10:44 AM EDT Pt arrived from [facility] via [facility]. Pt A&Ox4, admission database complete. Mediations reconciled. Pt put on telemetry and continuous pulse ox. Vitals stable. Bilat rhino rockets in place. No active epistaxis at this time. Primary team made aware of arrival. Textile Machinery Sales Representative called pt's to make her aware if the transfer, no answer left message. documented in this encounterBon [facility] Hospital course Narrative* Pepito Grant MD - 06/05/2025 3:29 PM EDT Images from the original note were not included. [facility] Department of Internal Medicine - Critical Care Service INPATIENT DISCHARGE SUMMARY PATIENT IDENTIFICATION: NAME: Dariel Zabala : 1940 Acct: [id number] Admit Date: 06/02/2025 Discharge date: No discharge [...] in nasal bone fracture. [facility] and was treated with Afrin and nasal pressure, patient wasdischarged home with ENT follow-up. When patient returned home he blew his nose and resulted in brisk bleeding from the left nare prompting him to return to the ER yesterday evening. He had bilateralnasal packing with Rhino Rocket's placed and was transferred to [facility] for ENT evaluation. 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 Pepito Grant MD Internal Medicine Resident Critical Care Service Cosigned by Flaco Ren MD at 06/05/2025 5:16 PM EDT documented in this encounterBon [facility] Hospital Discharge instructions* Discharge Instructions* Pepito Grant [...] 2-3 Please follow-up with your PCP and power plant operators supervisor (kidney doctor )for continued care Please go to the nearest ER if you have worsening of current symptoms or started experiencing new symptoms like shortness of breath, chest pain, palpitations, dizziness, loss of consciousness, any bleed from the nose for further evaluation management documented in this encounterBon [facility] NoteNurse Consultation Note Reason for Visit patient [...] 03/31/2015 Recorded influenza virus vaccine, inactivated 08/02/2014 [facility] NotePatient Education Cardiovascular Atrial Fibrillation Atrial [...] these instructions at home: Medicines ??? Take [id number]-[id number] and prescription medicines only as told by [...] provider. Document Revised: 07/20/2023 Document Reviewed: 07/20/2023 MaPS Patient Education ? 2023 The Art Commission. Caregiving Fall Prevention in the Home, Adult Falls can cause injuries and can happen to people of all ag (more content not included)...[facility]02[facility]2025 NoteNurse Consultation Note Reason for Visit [...] 03/31/2015 Recorded influenza virus vaccine, inactivated 08/02/2014 [facility] NotePatient Education Cardiovascular Atrial Fibrillation Atrial [...] signals of the heart. ??? An ambulatory property assessment monitor to record your heart's activity for [...] the main warning s (more content not included)...[facility] 11-28-2024 History of Present illness Narrative* Jose L Chow NP - 11/28/2024 1:00 PM EST Images from the original note were not included. HISTORY OF PRESENT ILLNESS: Dariel Zabala is an 84 y.o. @ male. 1ST PO LT CTR 11/19/24 (9 DAYS) @ [facility] ([facility]). PAIN DIFFUSE IN HAND/WRIST. KEEPS COVERED [...] for requiring urgent evaluation. Jose L Chow APRN-GLOBAL PROCESS OWNER documented in this encounterSaint John's [id number] History of Present illness Narrative* Emiliano Escamilla MD - 11/26/2024 10:30 AM EST Images from the original note were not included. Subjective Patient ID: Dariel Zabala is a 84 y.o. male who presents for Ear Problem (Hearing aid battery in ear.) Pt seen in [facility] ED last Tuesday and DARNELL battery noted in RT EAC No family history on file. Active Ambulatory Problems Diagnosis Date Noted ASCVD (arteriosclerotic cardiovascular disease) ([facility]CC) 11/26/2024 Atrial fibrillation (CMS/HCC) 08/22/2014 Back spasm 11/26/2024 Benign hypertension (CMS/HCC) 11/26/2024 Body mass index (BMI) of 25.0-25.9 in adult 11/26/2024 Benign prostatic hyperplasia 11/26/2024 Carotid artery occlusion 11/26/2024 Carpal tunnel syndrome 08/23/2007 Cervical disc disease with myelopathy 2011 Diabetes mellitus ([facility]/HCC) 11/26/2024 ED (erectile dysfunction) 11/26/2024 Encounter for surveillance of abnormal nevi 11/26/2024 Erectile dysfunction due to arterial insufficiency 11/26/2024 Fall at home 11/26/2024 Generalized osteoarthritis 09/12/2012 Hard of hearing 11/26/2024 Resolved Ambulatory Problems Diagnosis Date Noted No Resolved Ambulatory Problems No Additional Past Medical History Past Surgical History: Procedure Laterality Date CARPAL TUNNEL RELEASE NECK SURGERY TRIGGER FINGER RELEASE Right 03/26/2024 [facility] - [facility] () No Known Allergies Current Outpatient Medications [...] NOSTRIL ONCE DAILY AT BEDTIME [DISCONTINUED] HYDROcodone-acetaminophen ([place]) 5-325 MG tablet [DISCONTINUED] tiZANidine (Zanaflex) 4 [...] dementia. Dr Garcia notified. documented in this encounterSaint John's [id number] NoteProgress Note-Physician Patient: DARIEL ZABALA Age: 84 years Sex: Male : 1940 Associated Diagnoses: None Author: Carmine COHN, Chau Pineda Postoperative Information Postoperative disposition: Postoperative disposition: To PACU. Optimetrix number: Optimetrix number [id number]. Anesthetic utilized: General. Health Status Allergies: Allergic [...] Discharge when meets criteria ( To home ).[facility] HospitalComment on above:Result Comment: Electronically Signed By: Chau Lou MD\.br\Date and Time Signed: 11/19/24 15:19 EST 11-19-2024 Evaluation + Plan noteExtracted from: Title:ANES Post-operative Note---General Author: Chau Lou MD Date:11/19/24 Plan Transfer/Discharge: Transfer/Discharge Discharge when meets criteria ( To home ). Extracted from: Title:ANES Pre-operative Note 2022 Author:Chau Goode Date:11/19/24 Plan [place] [employer] of Anesthesiologists (ASA) physical status classification: Class III. Anesthetic Preoperative Plan: Anesthesia General. Future Appointments Appointment Date:12/12/2024 10:15:00 AM Scheduled Provider:Dixon Dubose PA-C [facility] Type:Cardiology Follow Up (FT) Appointment Date:05/02/2025 08:00:00 AM Scheduled Provider: Location:[facility] Appointment Type:FM Medicare Wellness Subsequent Future Scheduled Tests Laboratory* Basic Metabolic Panel 11/13/24 [facility] 01-06-2025 NotePatient Education - Text [place], [place] [facility] CARPAL TUNNEL RELEASE INSTRUCTIONS [...] Patient Signature Axel Hernández, DO [facility] [address] [place] [address] Reviewed: 04-22[facility]01-06-2025 NoteProgress Note-Physician Patient: DARIEL ZABALA Age: [...] daily, # 90 tab(s), Refills(s) 0, [id number], cm, 06/11/24 12:53:00 EDT, Height/Length Dosing, 82, kg, 06/11/2412:56:00 EDT, Weight Dosing Sodium Chloride 1000 mg oral tablet, soluble: See Instructions, 30 tab(s), Refill(s) 0, Take one tablet daily, [id number] 178.6, cm, 11/01/24 9:21:00 EST, Height/Length Dosing, 81.3, kg, 11/01/24 9:21:00 EST, Weight Dosing Synthroid 25 mcg(0.025 mg) Tab: See Instructions, TAKE 1 TABLET DAILY ON AN EMPTY STOMACH, # 3 tab(s), Refills(s) 0, [id number] 178, cm, 08/07/24 10:59:00 EDT, Height/Length Dosing, 78.2, kg, 08/07/24 10:59:00 EDT, Weight Dosing atenolol 25 mg Tab: See Instructions, take 1/2 tab daily, # 90 tab(s), Refills(s) 1, Pharmacy: [facility], 178, cm, 09/10/24 13:01:00 EDT, Height/Length Dosing, 80.1, kg, 09/10/24 13:01:00 EDT, Weight Dosing finasteride 5 mg Tab: 5 mg = 1 tab(s), Oral, Daily, # 90 tab(s), Refills(s) 1, Pharmacy: [facility]acy #[id number], 178.6, cm, 11/01/24 9:21:00 EST, Height/Length Dosing, 81.3, kg, 11/01/24 9:21:00 EST, Weight Dosing fluticasone Nasal 0.05 mg/inh [place]: See Instructions, 48 mL, Refill(s) 1, USE 1 SPRAY IN EACH NOSTRIL TWICE A DAY, [id number], 178, cm, 08/28/24 14:50:00 EDT, Height/Length Dosing, 82.2, kg, 08/28/24 14:50:00 EDT, Weight Dosing gabapentin 300 mg Cap: 300 mg = 1 cap(s), Oral, Daily, # 90 cap(s), Refills(s) 1, Pharmacy: [facility], 178, cm, 07/03/24 10:05:00 EDT, Height/Length Dosing, 80.8, kg, 07/03/2410:05:00 EDT, Weight Dosing glimepiride 2 mg Tab: See Instructions, TAKE 1 TABLET DAILY, # 3 tab(s), Refills(s) 0, Pharmacy: [facility], 178, cm, 08/07/24 10:59:00 EDT, Height/Length Dosing, 78.2, kg, 08/07/24 10:59:00 EDT, Weight Dosing omeprazole 40 mg Cap-DR: 40 mg = 1 cap(s), Oral, Daily, # 90 cap(s), Refills(s) 1, Pharmacy: [facility], 178, cm, 08/28/24 14:50:00 EDT, Height/Length Dosing, 82.2, kg, 08/28/24 14:50:00 EDT, Weight Dosing pravastatin 40 mg Tab: 40 mg = 1 tab(s), Oral, Daily, # 90 tab(s), Refills(s) 3, Pharmacy: [facility], 178, cm, 09/10/24 13:01:00 EDT, Height/Length Dosing, 80.1, kg, 09/10/24 13:01:00 EDT, Weight Dosing sildenafil 100 mg Tab: 100 mg = 1 tab(s), Oral, Daily, PRN for erectile dysfunction, 1 hour before sexual activity, # 5 tab(s), Refills(s) 0, Pharmacy: [facility], 178, cm, 07/03/24 10:05:00 EDT, Height/Length Dosing, 80.8, kg, 07/03/24 10:05:00 EDT,... tamsulosin 0.4 mg Cap: 0.4 mg = 1 cap(s), Oral, Daily, # 90 cap(s), Refills(s) 1, Pharmacy: [facility], 178, cm, 09/10/24 13:01:00 EDT, Height/Length Dosing, 80.1, kg, 09/10/2413:01:00 EDT, Weight Dosing Documented Medications Documented CoQ10: See Instructions, PRN Prophylaxis, Refills(s) 0 D3: See Instructions, Oral Daily- patient states he takes 500 once a day, Refills(s) 0 Jantoven 5 mg oral tablet: 5 mg = 1 tab(s), Oral, Daily, Refills(s) 0, Blood Thinner (more content not included)...[facility] HospitalComment on above:Result Comment: Electronically Signed By: Carmine COHN, Chau Pineda\.br\Date and Time Signed: 11/19/24 11:51 [id number] Hospital Discharge instructions Patient Education 11/12/2024 12:08:21 Hernández - Carpal Tunnel Release Instructions (Custom) (CUSTOM) [place], [place] [facility] CARPAL TUNNEL RELEASE INSTRUCTIONS [...] Patient SignatureMiclolis Bill Hernández, DO [facility] [address] [place] [id number] Reviewed: 6-11/19/2024 13:10:26 Post Op Patient Instructions - FT (Custom) (CUSTOM) Follow Up Care 10/03/2024 14:28:43 With:GORDO Weller Address: [address] [place] [phone] Business (1) When:11/28/2024 13:00:00 Comments:Keep scheduled appointment. Call for any problems. [facility] 12-30-2024 NotePatient Education - Text [place], [place] [facility] CARPAL TUNNEL RELEASE INSTRUCTIONS [...] Patient Signature Axel Hernández, DO [facility] [address] [place] [address] Reviewed: 04-22[facility]12-30-2024 NoteNurse Consultation Note Reason for Visit [...] Daily, 1 refills fluticasone Nasal 0.05 mg/inh [place], See Instructions, Self Directed gabapentin 300 mg [...] 03/31/2015 Recorded influenza virus vaccine, inactivated 08/02/2014 RecordedCommunity [facility]11-15-2024 History of Present illness Narrative* Shala Farrell MD - 09/28/2024 9:30 AM EST [facility] Patient: Dariel Zabala [address], [address] , Sex: 1940, Male [place] [id number] Height: 180 cm Ref Phys: Hernández fax [...] Doub=doublet; Fasc=fasciculation; FFE=full for effort; Fib=fibrillation; Myokym=myokymia; [place]=myotonic potential; N,0=normal; NR=no response; Polyph=polyphasia; Pos=positive [sharp] [...] available for comparison. Shala Farrell M.D. Diplomate, [place] Board of Psychiatry and Neurology (neurology, epilepsy, sleep medicine) Diplomate, [place] Board of Clinical Neurophysiology Diplomate, [place] Board of Preventive Medicine (clinical informatics) . documented in this [facility]10-07-2024 Telephone encounter Note* Telephone Encounter - Miguel Moe - 08/20/2024 10:50 AM EDT LVM to RC in regard to BUE referral from Dr. Hernández--Approved to schedule--25.00 co-pay will be applied to toward OOP. [facility] John's [id number] Miscellaneous Notes* Telephone Encounter - Miguel Moe - 08/20/2024 10:50 AM EDT LVM to RC in regard to BUE referral from Dr. Hernández--Approved to schedule--25.00 co-pay will be applied to toward OOP. documented in this [facility]05-13-2024 Hospital Discharge instructions Patient Education [...] condition: Doing activities that require a strong barrel polisher inside. Having rheumatoid arthritis, gout, or diabetes. Being [...] splint on your hand. General instructions Take viir-xvd-bnlgjfi and prescription medicines only as told by [...] provider. Document Revised: 03/17/2020 Document Reviewed: 03/17/2020 MaPS Patient Education 2022 The Art Commission. Follow Up Care 03/01/2024 15:40:29 With:GORDO Weller Address: [address] [place], [place] [id number] Business (1) When:04/04/2024 10:15:00 Comments:Keep scheduled appointment [facility]01-05-2024 Evaluation note* Encounter Date Diagnosis Assessment [...] sodium level at upcoming appt in January [facility] Other 12-20-2023 Evaluation note* Encounter Date Diagnosis [...] further dizziness symptoms would recommend f/u with equity analyst as well. [facility] Other 11-17-2023 Evaluation note* Encounter Date Diagnosis Assessment Notes Treatment Notes Treatment Clinical Notes Sep, Type 2 diabetes mellitus (ICD-10 - E11.9) [facility] Other 11-17-2023 Miscellaneous Notes* Telephone Encounter - Venessa Riggins RN - 09/30/2023 12:29 PM EST Called patient back and reviewed plan from his call with Nurse Cylinder Dyer at 11:36 AM. See my note Patient already called his PCP as advise and waiting call back for scheduling. He was hospital discharged on 08/26 for cognitive problems and low sodium. He finished his pills for low sodium today. NOC closing was given Conferenced [facility] for an appt with nephrology as soon [...] have any questions, you can call Nurse bacon skinner back. * Telephone Encounter - Venessa Riggins RN - 09/30/2023 11:36 AM EST Patient calling with request for physician referral: Patient referred to nephrology and primary care Department. Patient denies any new or worsening symptoms of which a provider is not aware: Yes. Patient was discharged from [facility] on 08/26 for low sodium and [...] none PCP luis appt. Conferenced him to [facility] and then call dropped. My [employer] and [employer] lost connection. NOC closing was given GO TO THE EMERGENCY ROOM OR CALL 911 IF: * You develop any new symptoms * Your condition worsens * You are concerned or anxious about your condition for any other reason. If you have any questions, you can call Nurse bacon skinner back. documented in this encounterOhio [facility] Evaluation note* Encounter Date Diagnosis Assessment Notes Treatment Notes Treatment Clinical Notes Sep, Hyponatremia (ICD-10 - E87.1) Recent sodium 136 at low end of normal, given significance of symptoms and recommendation of hospital for f/u will refer to nephrology patient requesting [place] Sep, Anticoagulant long-term use (ICD-10 - Z79.01) Follows with INR clinic through [facility]. Sep, Atrial fibrillation (ICD-10 - I48.91) Appears in NSR today, anticoagulated on Warfarin Sep, Hypothyroidism (ICD-10 - E03.9) Recent TFTs in normal range, clinically euthyroid, continue current dose of LT4 Sep, Type 2 diabetes mellitus (ICD-10 - E11.9) Recent a1c in good range at 5.6%, continue current dose of glimepiride. Sep, Immunization due (ICD-10 - Z23) [facility] Other 10-16-2023 Evaluation note* Encounter Date Diagnosis Assessment Notes Treatment Notes Treatment Clinical Notes Aug, Hyponatremia (ICD-10 - E87.1) [facility] Other 08-03-2023 Evaluation note* Encounter Date Diagnosis Assessment Notes Treatment Notes Treatment Clinical Notes Jun, Atrial fibrillation (ICD-10 - I48.91) Rate controlled, mild bradycardia but asymptomatic. Will continue current dose of atenolol. He is anticoagulated on Coumadin with goal INR 2-3, he is due for INR check. Will refer to coumadin clinic through [facility] Jun, Anticoagulant long-term use (ICD-10 - Z79.01) Jun, Hearing loss (ICD-10 - H91.90) Referral to local mechanical expert Jun, Dermatitis (ICD-10 - L30.9) Can trial topical steroid PRN, discussed may be secondary to dry skin. Recommend daily use of lotion Jun, Hypothyroidism (ICD-10 - E03.9) Due for TFTs prior to next visit Jun, Type 2 diabetes mellitus (ICD-10 - E11.9) Due for a1c prior to next visit Jun, BPH (benign prostatic hyperplasia) (ICD-10 - N40.0) [facility] Other 08-03-2023 Reason for referral (narrative)* Reason Medication managemen t through [facility] - Coumadin management with INR goal 2-3 Diagnosis 1 Anticoagulant long-t erm use (Z79.01) Referral Organization [facility] Rodo Brown Referring Provider First Name Jada Referring Provider Last Name [facility], [facility]–1983 Referring Provider Specialty [facility] Referred Organization [facility] Referred Address [address] [place], [place],[address] Referred Provider Specialty Milvia felix Referral Priority Routine General Notes Gabrielle Reid 01/2023 01:34:29 PM >this is an order not a referral, clinical informed and will fax order over for standing order INR to [facility] Reason * FU 06/29 CALL he aring loss, issue with hearing aids Diagnosis 1 Hearing loss (H91.90 ) Referral Organization [facility] Rodo Brown Referring Provider First Name Jada Referring Provider Last Name [facility], [facility] Referring Provider Specialty [facility] Referred Organization [facility] Referred Address ,[place], [place],[address] Referred Provider Specialty Audiologists Referral Priority Routine General Notes Gabrielle Reid 01/2023 01:28:34 PM >referral received and faxed [facility] Other 04-27-2010 History of Past illness Narrative* Problem Noted Date Diagnosed Date Resolved Date Myalgia 03/10/2010 03/01/2011 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 and other lower urinary tract symptoms (LUTS) 08/11/2006 01/11/2013 Elevated prostate specific antigen (PSA) 03/07/2012 documented as of this encounter (statuses as of 09/30/2023) [facility] No data available for this section [facility] Future Appointments Appointment Date:03/08/2024 01:00:00 PM Scheduled Provider:Edwin Garcia MD Location:[facility] Appointment Type: Open Appointment Date:03/26/2024 01:45:00 PM Scheduled Provider: Location:[facility] Appointment Type:Surgery FT Appointment Date:05/01/2024 09:00:00 AM Scheduled Provider: Location:[facility] Appointment Type: Lab Draw Appointment Date:05/03/2024 08:00:00 AM Scheduled Provider: Location:[facility] Appointment Type: Medicare Wellness Subsequent Appointment Date:05/03/2024 09:00:00 AM Scheduled Provider:Edwin Garcia MD Location:[facility] Appointment Type: Open Future Scheduled Tests Laboratory* PSA Screen, Total 02/02/24 * CBC w/ Auto Diff 02/02/24 * Comprehensive Metabolic Panel 02/02/24 * Lipid Panel 02/02/24 [facility] Future Appointments Appointment Date:05/01/2024 09:00:00 AM Scheduled Provider: Location:[facility] Appointment Type:FM Lab Draw Appointment Date:05/03/2024 08:00:00 AM Scheduled Provider: Location:[facility] Appointment Type: Medicare Wellness Subsequent Appointment Date:05/03/2024 09:00:00 AM Scheduled Provider:Edwin Garcia MD Location:[facility] Appointment Type: Open Future Scheduled Tests Laboratory* PSA Screen, Total 02/02/24 * CBC w/ Auto Diff 02/02/24 * Comprehensive Metabolic Panel 02/02/24 * Lipid Panel 02/02/24 [facility] Future Appointments Appointment Date:05/01/2024 09:00:00 AM Scheduled Provider: Location:[facility] Appointment Type:FM Lab Draw Appointment Date:05/03/2024 08:00:00 AM Scheduled Provider: Location:[facility] Appointment Type: Medicare Wellness Subsequent Appointment Date:05/03/2024 09:00:00 AM Scheduled Provider:Edwin Garcia MD Location:[facility] Appointment Type: Open Appointment Date:05/25/2024 01:00:00 PM Scheduled Provider:Kashif Barnett MD [facility] [place] [facility] Type:Cardiology Follow Up (FT) Future Scheduled Tests Laboratory* PSA Screen, Total 02/02/24 * CBC w/ Auto Diff 02/02/24 * Comprehensive Metabolic Panel 02/02/24 * Lipid Panel 02/02/24 Radiology* Echo Transthoracic Complete 04/20/24 [facility] Future Appointments Appointment Date:05/03/2024 08:00:00 AM Scheduled Provider: Location:[facility] Appointment Type:FM Medicare Wellness Subsequent Appointment Date:05/03/2024 09:00:00 AM Scheduled Provider:Edwin Garcia MD Location:[facility] Appointment Type:FM Open Appointment Date:05/21/2024 10:00:00 AM Scheduled Provider: [facility] Type:CV Holter/Event (FT) Appointment Date:05/25/2024 01:00:00 PM Scheduled Provider:Kashif Barnett MD [facility] [place] [facility] Type:Cardiology Follow Up (FT) [facility] + Plan note Future Appointments Appointment Date:05/30/2024 03:45:00 PM Scheduled Provider:Kashif Barnett MD [facility] Type:Cardiology Follow Up (FT) Appointment Date:11/01/2024 09:15:00 AM Scheduled Provider:Edwin Garcia MD Location:[facility] Appointment Type: Open Appointment Date:05/02/2025 08:00:00 AM Scheduled Provider: Location:[facility] Appointment Type: Medicare Wellness Subsequent [facility] + Plan note Future Appointments Appointment Date:08/31/2024 01:00:00 PM Scheduled Provider:Kashif Barnett MD [facility] [place] [facility] Type:Cardiology Follow Up (FT) Appointment Date:11/01/2024 09:15:00 AM Scheduled Provider:Edwin Garcia MD Location:[facility] Appointment Type: Open Appointment Date:05/02/2025 08:00:00 AM Scheduled Provider: Location:[facility] Appointment Type: Medicare Wellness Subsequent [facility] Future Appointments Appointment Date:11/01/2024 09:15:00 AM Scheduled Provider:Edwin Garcia MD Location:[facility] Appointment Type:FM Open Appointment Date:12/11/2024 01:00:00 PM Scheduled Provider:Dixon Dubose PA-C [facility] Type:Cardiology Follow Up (FT) Appointment Date:05/02/2025 08:00:00 AM Scheduled Provider: Location:[facility] Appointment Type:FM Medicare Wellness Subsequent [facility] evaluation + Plan note Future Appointments Appointment Date:11/01/2024 09:15:00 AM Scheduled Provider:Edwin Garcia MD Location:[facility] Appointment Type:FM Open Appointment Date:11/19/2024 02:15:00 PM Scheduled Provider: Location:[facility] Appointment Type:Surgery FT Appointment Date:12/12/2024 10:15:00 AM Scheduled Provider:Dixon Dubose PA-C [facility] Type:Cardiology Follow Up (FT) Appointment Date:05/02/2025 08:00:00 AM Scheduled Provider: Location:[facility] Appointment Type: Medicare Wellness Subsequent [facility] evaluation + Plan note Future Appointments Appointment Date:11/19/2024 02:15:00 PM Scheduled Provider: Location:[facility] Appointment Type:Surgery FT Appointment Date:12/12/2024 10:15:00 AM Scheduled Provider:Dixon Dubose PA-C [facility] Type:Cardiology Follow Up (FT) Appointment Date:05/02/2025 08:00:00 AM Scheduled Provider: Location:[facility] Appointment Type: Medicare Wellness Subsequent [facility] evaluation + Plan note Future Appointments Appointment Date:12/24/2024 01:15:00 PM Scheduled Provider:[facility]win [facility] Open Appointment Date:05/02/2025 08:00:00 AM Scheduled Provider: Location:[facility] Appointment Type: Medicare Wellness Subsequent Diagnostic Tests Pending * Basic Metabolic Panel 12/17/24 Future Scheduled Tests Laboratory* Basic Metabolic Panel 11/13/24 [facility] evaluation + Plan note Future Appointments Appointment Date:01/22/2025 10:15:00 AM Scheduled Provider:Edwin Garcia MD Location:[facility] Appointment Type: Open Appointment Date:05/02/2025 08:00:00 AM Scheduled Provider: Location:[facility] Appointment Type: Medicare Wellness Subsequent Future Scheduled Tests Laboratory* Basic Metabolic Panel 11/13/24 [facility] Hospital evaluation + Plan note Future Appointments Appointment Date:02/05/2025 01:30:00 PM Scheduled Provider:Edwin Garcia MD Location:[facility] Appointment Type: Open Appointment Date:05/02/2025 08:00:00 AM Scheduled Provider: Location:[facility] Appointment Type: Medicare Wellness Subsequent Future Scheduled Tests Laboratory* Basic Metabolic Panel 01/10/25 * Basic Metabolic Panel 11/13/24 [facility] evaluation + Plan note Future Appointments Appointment Date:05/02/2025 08:00:00 AM Scheduled Provider: Location:[facility] Appointment Type: Medicare Wellness Subsequent Future Scheduled Tests Laboratory* Basic Metabolic Panel 11/13/24 [facility] evaluation + Plan note Future Appointments Appointment Date:08/09/2025 10:40:00 AM Scheduled Provider:YANIQUE MCNEILL CNP Location:[facility] Appointment Type: Open Appointment Date:05/13/2026 08:00:00 AM Scheduled Provider: Location:[facility] Appointment Type: Medicare Wellness Subsequent Future Scheduled Tests Laboratory* Basic Metabolic Panel 11/13/24 [facility] evaluation noteNo [facility] Nitro Other evaluation note* Diagnosis Pain in both upper extremities- Primary Carpal tunnel syndrome, bilateral Carpal tunnel syndrome [facility] Diagnosis Pre-op testing- Primary Unspecified pre-operative examination Right hand pain Pain in soft tissues of limb Arm weakness Other musculoskeletal symptoms referable to limbs documented in this encounter [facility]* Diagnosis Foreign body of right ear, initial encounter- Primary documented in this encounter [facility]* Diagnosis Status post carpal tunnel release- Primary Other postprocedural status documented in this encounter [facility]* Diagnosis Fracture of nasal [...] and immunity disorders [facility] (cerebral vascular accident) ([facility] Primary Unspecified cerebral artery occlusion with cerebral infarction 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 ([facility] documented in this encounter [facility] Narrative - Reported* Type Description Date Medical History type 2 diabetes Medical History hypothyroid Medical History Afib Surgical History multiple neck sx Surgical History tonsillectomy Surgical History adenoidectomy Surgical History MAU cataract Hospitalization History see above [facility] Other History general Narrative - Reported* Type Description Date Medical History type 2 diabetes Medical History hypothyroid Medical History Afib Surgical History multiple neck sx Surgical History tonsillectomy Surgical History adenoidectomy Surgical History MAU cataract Hospitalization History see above Hospitalization History low sodium- [facility] 10/2023 [facility] Other History general Narrative - Reported* Type Description Date Medical History type 2 diabetes Medical History hypothyroid Medical History Afib Surgical History multiple neck sx Surgical History tonsillectomy Surgical History adenoidectomy Surgical History MAU cataract Hospitalization History see above Hospitalization History low sodium- [facility] 10/2023 Hospitalization History [facility]--Influe nza A, hyponatremia, paroxysmal afib, altered mental status, type 2 DM, generalized weakness hypomagnesiema, [facility] 11/13/23-11/15/23 [facility] Other Hospital Discharge instructions No data available for this section [facility] instructions[facility] on file documented in this encounter[facility] Discharge instructionsAmbulatory Orders* Initiate Home [...] see your PCP in the next [facility] days[facility] Work Phone: Progress note No data available for this section [facility] Narrative* Auth/Cert (Routine) Specialty Diagnoses / Procedures Referred By Contac t Referred To Contact Diagnoses Epistaxis Nasal fracture Fracture of nasal bones, initial encounter for closed fracture Beto Hedrick DO [address] [facility] [address] [facility] [address] [place] [address] Phone: tel: fax: [facility] [address] [place] [address] Referral ID Status Reason Start Date Expiration Date Visits Re quested Visits Authorized [id number] 1 1 [facility] for visit Narrative* Auth/Cert Specialty Diagnoses / Procedures Referred By Contac t Referred To Contact Diagnoses CVA [facility] [address] [place] [id number] Referral ID Status Reason Start Date Expiration Date Visits Re quested Visits Authorized [id number] [address] [facility] Summary Purpose Family History No [...] hospitalization for symptomatic hyponatremia, [facility] [place] Dr. Lara ph [phone], fax [phone] Diagnosis 1 Hyponatremia (E87.1) Referral Organization [facility] Saiguo Dora Referring Provider First Name Jada Referring Provider Last Name [facility], [facility]–1983 Referring Provider Specialty Family Snapstream Referred Organization Will Villalpando [facility] Referred Provider Romeo Lara Referred Address [address] [place], [place],[address] Referred Provider Specialty Internal Med icine Referral Priority Routine General Notes Gabrielle Reid 06/2023 01:35:25 PM > referral received and faxed Clinical Notes [facility] [place] Dr. Lara ph [phone], fax [phone] Reason hyponatremia, recent hospitalization [facility] Diagnosis 1 Hyponatremia (E87.1) Referral Organization [facility] Saiguo [place] Referring Provider First Name Jada Referring Provider Last Name [facility], [facility] Referring Provider Specialty [facility] Snapstream Referred Organization [facility] Referred Address [address] [place], [place],[address] Referred Provider Specialty Nephrology Referral Priority Routine [...] section and content) DATE CREATED AUTHOR 06/03/2020 [facility] [place] [facility] DATE CREATED AUTHOR AUTHOR'S ORGANIZ ATION 05/03/2024 [facility] DATE CREATED AUTHOR AUTHOR'S ORGANIZ ATION 08/17/2024 [facility] DATE CREATED AUTHOR AUTHOR'S ORGANIZ ATION 11/02/2024 [facility] DATE CREATED AUTHOR AUTHOR'S ORGANIZ ATION 11/14/2024 [facility] DATE CREATED AUTHOR AUTHOR'S ORGANIZ ATION 11/24/2024 [facility] DATE CREATED AUTHOR AUTHOR'S ORGANIZ ATION 11/25/2024 [facility] DATE CREATED AUTHOR AUTHOR'S ORGANIZ ATION 11/29/2024 [facility] DATE CREATED AUTHOR AUTHOR'S ORGANIZ ATION 12/21/2024 [facility] DATE CREATED AUTHOR AUTHOR'S ORGANIZ ATION 01/02/2025 [facility] DATE CREATED AUTHOR AUTHOR'S ORGANIZ ATION 01/11/2025 [facility] DATE CREATED AUTHOR AUTHOR'S ORGANIZ ATION 01/27/2025 [facility] DATE CREATED AUTHOR AUTHOR'S ORGANIZ ATION 02/06/2025 [facility] DATE CREATED AUTHOR AUTHOR'S ORGANIZ ATION 02/07/2025 [facility] DATE CREATED AUTHOR AUTHOR'S ORGANIZ ATION 02/22/2025 [facility] DATE CREATED AUTHOR AUTHOR'S ORGANIZ ATION 05/24/2025 [facility] DATE CREATED AUTHOR AUTHOR'S ORGANIZ ATION 06/03/2025 [facility] DATE CREATED AUTHOR AUTHOR'S ORGANIZ ATION 06/08/2025 [facility] DATE CREATED AUTHOR AUTHOR'S ORGANIZ ATION 06/09/2025 [facility] DATE CREATED AUTHOR AUTHOR'S ORGANIZ ATION 06/09/2025 [facility] DATE CREATED AUTHOR AUTHOR'S ORGANIZ ATION 06/14/2025 [facility] DATE CREATED AUTHOR AUTHOR'S ORGANIZ ATION 06/15/2025 [facility] DATE CREATED AUTHOR AUTHOR'S ORGANIZ ATION 07/23/2025 [facility] DATE CREATED AUTHOR AUTHOR'S ORGANIZ ATION 07/27/2025 [facility] DATE CREATED AUTHOR AUTHOR'S ORGANIZ ATION 08/02/2025 [facility] DATE CREATED AUTHOR AUTHOR'S [...] or prosecute any alcohol or drug abuse patient.[facility] Patient Care team informatio n (unrecognized section and content) Turret Lathe Machinist Relationship Specialty Start Date End Date Edwin Garcia MD PCP - General Family Medicine 02/03/24 Turret Lathe Machinist Relationship Specialty Start Date End Date Edwin Garcia MD PCP - General Family Medicine 02/03/24 Turret Lathe Machinist Relationship Specialty Start Date End Date Edwin Garcia MD PCP - General Family Medicine 02/03/24 Turret Lathe Machinist Relationship Specialty Start Date End Date Edwin Garcia MD PCP - General Family Medicine 02/03/24 Turret Lathe Machinist Relationship Specialty Start Date End Date Edwin Garcia MD PCP - General Family Medicine 02/03/24 Turret Lathe Machinist Relationship Specialty Start Date End Date Edwin Garcia MD [address] [place] [address] PCP - General Family Medicine 11/26/24 Turret Lathe Machinist Relationship Specialty Start Date End Date Edwin Garcia MD [address] [place] [address] PCP - General Family Medicine 11/26/24 Turret Lathe Machinist Relationship Specialty Start Date End Date Edwin Garcia MD [address] [place] [address] PCP - General Family Medicine 11/26/24 Turret Lathe Machinist Relationship Specialty Start Date End Date Edwin Garcia MD [address] [place] [address] PCP - General Family Medicine 11/26/24 Turret Lathe Machinist Relationship Specialty Start Date End Date Jaden Maravilla APRN - PARTS CLERK PLANT MAINTENANCE [address] [place] [address] PCP - General 06/05/25 Turret Lathe Machinist Relationship Specialty Start Date End Date Yanique Mcneill APRN-AVELINA [address] [place] [address] PCP - General Family Medicine 06/13/25 Turret Lathe Machinist Relationship Specialty Start Date End Date Edwin Garcia MD [address] [place] [address] PCP - General Family Medicine 11/26/24 Team Status: Active Member Role Status Dates Yanique Mcneill , [facility] Primary Care Provider Active Team Status: Active Member Role Status Dates Yanique Mcneill [facility] Primary Care Provider Active Start: July [...] Provider: Flip Dubose RN)2014 (Given - Provider: Nanyc Fox RN) 0841 (Given - Provider: Flip [...] (New Bag - Provider: Adia Blandon, RN) 0245 (Stopped - Provider: Monico Kaiser RN) PRN [...] for injection by adding 1 mL of bill adjuster-supplied sterile diluent or sterile water for injection [...] Medication Order 06/21/2025 06/22/2025 06/23/2025 heparin infusion [id number] units/500 mL in 0.45% NaCl (50 units/mL [...] BE BASED ON THE PRIMARY CLINICAL RECORDS. [employer] provides no warranty or guarantee of the accuracy or completeness of information in this document.
--- NOTE | 2025-08-05 18:21 | PC.NURSE ---
admitted to [facility] from er, bedside report obtained. at bedside, history provided by her. pt opens eyes to name, does not make effort to speak. weak cough noted. resps nonlabored, snorous. seizure pads maintained to bed. updated on plan of care. she stated pt fell at home and had been laying on the couch for several hours. incontinence brief changed, bed alarm on.
--- NOTE | 2025-08-05 20:53 | XR_ITS ---
[address] [address] Patient Name: INDIANA ZABALA MRN: [id number] date: 1940 Sex: M Assigned Patient Location: [place] Current Patient Location: [place] Accession/Order Number: [id number] Exam Date: 08/05/2025 22:25 Report Date: 08/05/2025 23:16 At the request of: KARTHIK SERRANO MD Procedure: XR chest 1V PA CHEST: CLINICAL HISTORY: Aspiration? NG placement position COMPARISON: 08/05/2025 Findings: Interval placement enteric tube side-port at the the GE junction, consider 10 cm advancement. Mildly enlarged cardiomediastinal silhouette. Lungs are clear. No effusion or pneumothorax. Postsurgical changes ACDF lower cervical spine. XR/XR chest 1V IMPRESSION: Enteric tube side-port at the GE junction, consider 10 cm advancement. Otherwise negative acute pleural-parenchymal disease. Impression dictated by: Rajeev Anne M.D. 08/05/2025 11:16 PM Dictation Location: [place] [address] Electronically authenticated by: [id number] Y Date: 08/05/2025 23:16
[2025-08-05 21:24] LABS: Anion Gap 14.7; Blood Urea Nitrogen 10.0 mg/dL (7.0-18.0); Calcium 8.5 mg/dL (8.5-10.1); Carbon Dioxide 20.4 mmol/L (21.0-32.0); Chloride 87 mmol/L (98-107); Estimated GFR (African America >60 (>=60 mL/min/1.73m^2); Estimated GFR (Non-African Ame >60 (>=60 mL/min/1.73m^2); Glucose 129 mg/dL (74-106); Potassium 4.1 mmol/L (3.5-5.1)
[2025-08-05 21:26] LABS: Sodium 118 mmol/L (136-145)
--- OUTSIDE RECORDS SUMMARY | 2025-08-05 21:43 | XMS_ITS | Encounter Summary ---
Author Organization [facility] Address [address] [place] [address] Care Team Providers Care Supervisor Counseling And Guidance Name Role Phone Edwin Medina MD Primary Care Provider [phone] Encounter Details Date Type Department Care Team (Late st Contact Info) Description 07/22/2025 External Result Encounter [facility] External Department Unsolicited Win Santillan, DO [address] [place] [address] Social History Tobacco Use Types Packs/Day Years [...] - 10.5 [CFU]/mL 07/22/2025 5:07 AM EDT [facility] UNCORRECTED WHITE BLOOD COUNT 6.9 4.1 - 10.5 10*3/uL 07/22/2025 5:07 AM EDT [facility] RBC 3.54(L) 3.90 - 5.60 10*6/uL 07/22/2025 5:07 AM EDT [facility] HEMOGLOBIN 11.2(L) 13.0 - 17.0 g/dL 07/22/2025 5:07 AM EDT [facility] HEMATOCRIT 32.4(L) 38.8 - 50.0 % 07/22/2025 5:07 AM EDT [facility] MCV 91.5 83.5 - 101 fL 07/22/2025 5:07 AM EDT [facility] MCH 31.5 27.5 - 35.2 pg 07/22/2025 5:07 AM EDT [facility] MCHC 34.4 32.5 - 35.6 g/dL 07/22/2025 5:07 AM EDT [facility] RED CELL DISTRIBUTION WIDTH, RDW 13.6 12.0 - 14.8 % 07/22/2025 5:07 AM EDT [facility] PLATELET COUNT 157 150 - 450 10*3/uL 07/22/2025 5:07 AM EDT [facility] MEAN PLATELET VOLUME, MPV 8.8 6.6 - 10.1 fL 07/22/2025 5:07 AM EDT [facility] NEUTROPHILS, % 72.3 . % 07/22/2025 5:07 AM EDT [facility] LYMPHOCYTES, % 16.8 . % 07/22/2025 5:07 AM EDT [facility] MONOCYTE/MACROPHA GE, % 8.3 . % 07/22/2025 5:07 AM EDT [facility] EOSINOPHILS, % 2.2 . % 07/22/2025 5:07 AM EDT [facility] BASOPHILS, % 0.4 . % 07/22/2025 5:07 AM EDT [facility] NRBC 0.1 0 - 0.5 /100{WBC} 07/22/2025 5:07 AM EDT [facility] NEUTROPHILS 5.0 1.8 - 7.7 10*3/uL 07/22/2025 5:07 AM EDT [facility] LYMPHOCYTES 1.2 1.00 - 4.8 10*3/uL 07/22/2025 5:07 AM EDT [facility] MONOCYTES 0.6 0.0 - 0.8 10*3/uL 07/22/2025 5:07 AM EDT [facility] EOSINOPHILS 0.1 0.0 - 0.45 10*3/uL 07/22/2025 5:07 AM EDT [facility] BASOPHILS 0.0 0.0 - 0.2 10*3/uL 07/22/2025 5:07 AM EDT [facility] Blood (Blood) 07/22/2025 4:4 5 AM EDT 07/22/2025 4:55 AM EDT Win Santillan DO LAB BLOOD ORDERABLES Final Resu lt Performing Organization Address City/State/[facility] Co de Phone Number [facility] [address] [place] [address], [facility] [address] [place] [address] documented in this encounter Visit Diagnoses Not on filedocumented in this encounter Care Teams Supervisor Counseling And Guidance Relationship Specialty Start Date End Date Edwin Medina MD [address] [place] [address] PCP - General Family Medicine 11/26/24 documented as of this encounter
--- OUTSIDE RECORDS SUMMARY | 2025-08-05 21:43 | XMS_ITS | Encounter Summary ---
Author Organization [facility] Address [id number] [address] [place] [address] Care Team Providers Care Senior Cognos Developer Name Role Phone Britt Mcneill BANKING CONSULTANT-GROOMING SALON MANAGER Primary Care Provider + Encounter Details Date Type Department Care Team (Late st Contact Info) Description 06/20/2025 Orders Only [facility] [employer] [address] [place] [phone] Transcribe, Orders Support User Pain (Primary Dx) Social History Tobacco Use Types Packs/Day Years Used Date Smoking Tobacco: Never Smokeless Tobacco: Never Alcohol Use Standard Drinks/Week Comments Not Currently 0 (1 standard drink = 0.6 oz pur e alcohol) [facility] Utilities Answer Date Recorded In [...] of progress towards goal: Home with [facility] documented as of this encounter Results [...] documented as of this encounter Care Teams Senior Cognos Developer Relationship Specialty Start Date End Date Britt Mcneill APRN-AVELINA [facility], [place] [address] PCP - General Family Medicine 06/13/25 documented as of this encounter
--- OUTSIDE RECORDS SUMMARY | 2025-08-05 21:43 | XMS_ITS | Encounter Summary ---
Author Organization [facility] Address [address] [place] [address] Care Team Providers Care It Support Technician Name Role Phone Edwin Medina MD Primary Care Provider [phone] Encounter Details Date Type Department Care Team (Late st Contact Info) Description 11/19/2024 Abstract [facility] [address] [place] [address] Jack Alexander DO [address] [place] [address] Social History Tobacco Use Types Packs/Day Years [...] on filedocumented in this encounter Care Teams It Support Technician Relationship Specialty Start Date End Date Edwin Medina MD [address] [place] [address] PCP - General Family Medicine 11/26/24 documented as of this encounter
--- OUTSIDE RECORDS SUMMARY | 2025-08-05 21:43 | XMS_ITS | Encounter Summary ---
Author Organization [facility] Address [address] [place] [address] Care Team Providers Care Special Services Supervisor Name Role Phone Soledad Vicente CORRECTION LIEUTENANT - PACKING SUPERVISOR Primary Care Provider [phone] Encounter Details Date Type Department Care Team (Late st Contact Info) Description 07/18/2025 Abstract [facility] [address] [facility] [address] [place] [address] Flaco Alfaro MD [address] [place] [address] Social History Tobacco Use Types Packs/Day Years Used Date Smoking Tobacco: Never Smokeless Tobacco: Never Alcohol Use Standard Drinks/Week Comments Never 0 (1 standard drink = 0.6 oz pur e alcohol) [facility] Utilities Answer Date Recorded In the past 12 months has th e electric, gas, oil, or water [employer] threatened to shut off services in your [...] any time in the past 12 m [facility], were you homeless or living in a alf (including now)? No 06/02/2025 Food Insecurity Answer [...] on filedocumented in this encounter Care Teams Special Services Supervisor Relationship Specialty Start Date End Date Soledad Vicente APRN - NP [address] [place] [address] PCP - General 06/05/25 documented as of this encounter
--- OUTSIDE RECORDS SUMMARY | 2025-08-05 21:43 | XMS_ITS | Clinical Summary ---
Author Organization [facility] Address [address] [place] [address] Care Team Providers Care Drafter Electronic Name Role Phone Edwin Medina MD Primary Care Provider [phone] Allergies No known active allergies Medications atenolol [...] myelopathy 2011 Overview (11/26/2024): Dr. Denis Adhikari, [facility] Carpal tunnel syndrome 08/23/2007 Encounters Date [...] - 10.5 [CFU]/mL 07/22/2025 5:07 AM EDT [facility] UNCORRECTED WHITE BLOOD COUNT 6.9 4.1 - 10.5 10*3/uL 07/22/2025 5:07 AM EDT [facility] RBC 3.54(L) 3.90 - 5.60 10*6/uL 07/22/2025 5:07 AM EDT [facility] HEMOGLOBIN 11.2(L) 13.0 - 17.0 g/dL 07/22/2025 5:07 AM EDT [facility] HEMATOCRIT 32.4(L) 38.8 - 50.0 % 07/22/2025 5:07 AM EDT [facility] MCV 91.5 83.5 - 101 fL 07/22/2025 5:07 AM EDT [facility] MCH 31.5 27.5 - 35.2 pg 07/22/2025 5:07 AM EDT [facility] MCHC 34.4 32.5 - 35.6 g/dL 07/22/2025 5:07 AM EDT [facility] RED CELL DISTRIBUTION WIDTH, RDW 13.6 12.0 - 14.8 % 07/22/2025 5:07 AM EDT [facility] PLATELET COUNT 157 150 - 450 10*3/uL 07/22/2025 5:07 AM EDT [facility] MEAN PLATELET VOLUME, MPV 8.8 6.6 - 10.1 fL 07/22/2025 5:07 AM EDT [facility] NEUTROPHILS, % 72.3 . % 07/22/2025 5:07 AM EDT [facility] LYMPHOCYTES, % 16.8 . % 07/22/2025 5:07 AM EDT [facility] MONOCYTE/MACROPHA GE, % 8.3 . % 07/22/2025 5:07 AM EDT [facility] EOSINOPHILS, % 2.2 . % 07/22/2025 5:07 AM EDT [facility] BASOPHILS, % 0.4 . % 07/22/2025 5:07 AM EDT [facility] NRBC 0.1 0 - 0.5 /100{WBC} 07/22/2025 5:07 AM EDT [facility] NEUTROPHILS 5.0 1.8 - 7.7 10*3/uL 07/22/2025 5:07 AM EDT [facility] LYMPHOCYTES 1.2 1.00 - 4.8 10*3/uL 07/22/2025 5:07 AM EDT [facility] MONOCYTES 0.6 0.0 - 0.8 10*3/uL 07/22/2025 5:07 AM EDT [facility] EOSINOPHILS 0.1 0.0 - 0.45 10*3/uL 07/22/2025 5:07 AM EDT [facility] BASOPHILS 0.0 0.0 - 0.2 10*3/uL 07/22/2025 5:07 AM EDT [facility] Blood (Blood) 07/22/2025 4:4 5 AM EDT 07/22/2025 4:55 AM EDT Win Santillan DO LAB BLOOD ORDERABLES Final Resu lt [facility] [address] [place] [address], [facility] [address] [place] [address] * (ABNORMAL) C-reactive protein (07/21/2025 4:46 AM EDT) C-REACTIVE PROTEIN 12.1(H) 0.0 - 0.5 mg/dL 07/21/2025 5:14 AM EDT [facility] Other Topography unknown / Unknown 07/21/2025 4:46 AM EDT 07/21/2025 4:49 AM EDT Win Santillan DO LAB BLOOD ORDERABLES Final Resu lt [facility] [address] [place] [address], [facility] [address] [place] [address] from Last 3 Months Insurance [employer] MED[employer]ARE [employer]VANTAGE Care Teams Drafter Electronic Relationship Specialty Start Date End Date Edwin Medina MD [address] [place] [address] PCP - General Family Medicine 11/26/24
--- OUTSIDE RECORDS SUMMARY | 2025-08-05 21:43 | XMS_ITS | Patient Health Record ---
Author Organization [facility] Address [address] [place] [address] Care Team Providers Care Knife Cutter Name Role Phone VLADIMIR GONZALEZ Unavailable [phone] Allergies No Known Allergies Reason For Referral [...] Comme nts COVID-19 VACCINE Unknown 03/31/2021 [employer]ered [employer] Social History Tobacco Use: Social History Observation [...] Problem Neoplasm of uncertain behavior of skin (76693749) Neoplasm of uncertain behavior of skin (D48.5) Active confirmed Problem Thrombocytopenia (440455283) Thrombocytopenia, unspecified (D69.6) Active confirmed Problem Hypothyroidism (68740268) Hypothyroidism, unspecified (E03.9) Active confirmed Problem 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 (826131279) 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 (poly)neuropathy (E11.43) Active confirmed Problem Disorder due to type 2 diabetes mellitus (926598394) Type 2 diabetes mellitus with unspecified complications (E11.8) Active confirmed Problem Mild cognitive disorder (313269156) Mild cognitive impairment, so stated (G31.84) Active confirmed Problem Carpal tunnel syndrome (52410685) Carpal tunnel syndrome, left upper limb (G56.02) Active confirmed Problem Hordeolum externum (3061290) Hordeolum externum left upper eyelid (H00.014) Active confirmed Problem Chalazion (2474644) Chalazion left upper eyelid (H00.14) Active confirmed Problem Nuclear senile cataract (703287545) Age-related nuclear cataract, bilateral (H25.13) Active confirmed Problem Otitis externa (1670635) Unspecified otitis externa, unspecified ear (H60.90) Active confirmed Problem Actinic keratosis (084575) Actinic keratosis (L57.0) Active confirmed Problem Ingrowing nail (418806983) Ingrowing nail (L60.0) Active confirmed Problem Osteoarthritis (684032626) Unspecified osteoarthritis, unspecified site (M19.90) Active confirmed Problem Low back pain (248901664) Low back pain (M54.5) Active confirmed Problem Palpitations (65964834) Palpitations (R00.2) Active confirmed Problem Lower abdominal pain (73419493) Lower abdominal pain, unspecified (R10.30) Active confirmed Problem C-reactive protein abnormal (104387340) Elevated C-reactive protein (CRP) (R79.82) Active confirmed Problem Adult health examination (894406271) Encounter for general adult medical examination without abnormal findings (Z00.00) Active confirmed Problem Screening for malignant neoplasm of prostate (969058969) Encounter for screening for malignant neoplasm of prostate (Z12.5) Active confirmed Problem Counseling (365614115) Other specified counseling (Z71.89) Active confirmed Problem Hyperlipidemia (04959905) Hyperlipidemia, unspecified (E78.5) Active confirmed Problem Essential hypertension (38329894) Essential (primary) hypertension (I10) Active confirmed Problem Carpal tunnel syndrome (37984110) Carpal tunnel syndrome, bilateral upper limbs (G56.03) Active confirmed Problem Erectile dysfunction (978577413) Erectile Dysfunction (N52.9) Active confirmed Problem Vitamin D deficiency (84114413) Vitamin D deficiency (E55.9) Active confirmed Problem Atrial fibrillation (74883827) Atrial fibrillation (I48.91) Active confirmed continue current regimen of 5mg and 2.5mg every other day starting 11/21/20-CL K Problem Carotid bruit (057002228) Carotid bruit (R09.89) Active confirmed Problem Fatigue (66316341) Fatigue (R53.83) Active conf irmed Problem Nephrolithiasis (23766118) Nephrolithiasis (N20.0) Active confirmed Problem Cholelithiasis (268997537) Cholelithiasis (K80.20) Active confirmed Problem Carotid artery stenosis (22149036) CAROTID STENOSIS (I65.29) Active confirmed Problem Lumbar spondylosis (346873448) Lumbar spondylosis (M47.817) 020 Active confirmed Med HEDIS WAS DONE,unco ntrolled Problem Hyperglycemia due to type 2 diabetes mellitus (190908001931475) Type 2 diabetes mellitus with hyperglycemia (E11.65) Active confirmed Problem Vitamin B12 deficiency (665045520) Vitamin B12 deficiency (D51.9) Active confirmed Problem Hearing loss (80870546) Hearing loss (H91.90) Active confirmed Problem Memory loss (51192702) Memory loss (R41.3) Active confirmed Problem Lower urinary tract symptoms due to benign prostatic hypertrophy (10176345150405) Benign prostatic hyperplasia with lower urinary tract symptoms (N40.1) Active confirmed Problem Hyperlipidemia (55128371) Hyperlipidemia, unspecified (E78.5) Active confirmed Problem Gastroesophageal reflux disease (415252987) Gastroesophageal reflux disease (K21.9) Active confirmed Problem Hearing loss (disorder) (37677669) Hearing loss (disorder) (H91.90) Active confirmed Problem Carpal tunnel syndrome (disorder) (26875049) Carpal tunnel syndrome (disorder) (G56.00) Active confirmed Problem Pre-surgery evaluation (125067525) Pre-operative examination, unspecified (Z01.818) Active confirmed Problem Impacted cerumen (05660411) Impacted cerumen (H61.20) Active confirmed Problem Depression Screening (506632537) Encounter for screening for depression (Z13.31) Active confirmed Problem COVID-19 (858992278) COVID-19 (U07.1) Active confirmed Plan Of Treatment [...] PANEL (REFL) 02/2022 COMPREHENSIVE METABOLIC PANEL (REFL) 04/2021 COMPREHENSIVE METABOLIC PANEL (REFL) 03/2022 COMPREHENSIVE METABOLIC PANEL 12/19/2019 MAGNESIUM 12/19/2019 MAGNESIUM 10/19/2021 MAGNESIUM 02/16/2022 MAGNESIUM 01/15/2022 MAGNESIUM 05/29/2021 MAGNESIUM 03/03/2021 CBC (INCLUDES DIFF/PLT) 05/29/2021 CBC (INCLUDES DIFF/PLT) 01/15/2022 CBC (INCLUDES DIFF/PLT) 02/16/2022 CBC (INCLUDES DIFF/PLT) 10/19/2021 CBC (INCLUDES DIFF/PLT) 03/03/2021 CBC (INCLUDES DIFF/PLT) 12/19/2019 C-REACTIVE PROTEIN 12/19/2019 HS CRP 03/31/2021 HS CRP 10/19/2021 HS CRP 02/16/2022 HS CRP 01/15/2022 HS CRP 05/29/2021 HEMOGLOBIN A1c 05/29/2021 HEMOGLOBIN A1c 01/15/2022 HEMOGLOBIN A1c 02/16/2022 HEMOGLOBIN A1c 10/19/2021 HEMOGLOBIN A1c 12/19/2019 VITAMIN B12/FOLATE, SERUM PANEL 12/19/19 20 VITAMIN B12/FOLATE, SERUM PANEL 02/17/20 22 VITAMIN B12/FOLATE, SERUM PANEL 01/16/20 22 VITAMIN B12/FOLATE, SERUM PANEL 10/19/20 21 VITAMIN B12/FOLATE, SERUM PANEL 05/29/20 21 VITAMIN B12/FOLATE, SERUM PANEL 03/03/20 21 T3, FREE 03/03/2021 T3, FREE 05/29/2021 T3, FREE 01/15/2022 T3, FREE 02/16/2022 T3, FREE 12/19/2019 T3, FREE 10/19/2021 VITAMIN D,25-OH,TOTAL,IA 10/19/2021 VITAMIN D,25-OH,TOTAL,IA 12/19/2019 VITAMIN D,25-OH,TOTAL,IA 02/16/2022 VITAMIN D,25-OH,TOTAL,IA 01/15/2022 VITAMIN D,25-OH,TOTAL,IA 05/29/2021 VITAMIN D,25-OH,TOTAL,IA 03/03/2021 TISSUE PATHOLOGY 08/28/2020 *MSE-MEMORY TEST 12/07/2019 *Cryosurgery 15 or more 12/19/2019 *Cryosurgery 15 or more 09/17/2020 *Cryosurgery 15 or more 11/20/2021 *Cryosurgery 15 or more 05/26/2022 *Biopsy 1st 12/19/2019 *PT/INR 11/20/2021 *PT/INR 12/18/2021 *PT/INR 01/28/2021 *Urine Microalbumin 12/18/2021 *Creatine 12/18/2021 *Annual Depresion Screening 12/19/2020 *Annual Depresion Screening 12/07/2019 *[facility] ANNUAL WELLNESS VISIT 04/29/2020 *Digital Prostate [...] Coverage End Date [employer] [address] [address] [place] [address] [phone] [id number] Dariel Aguilera Self - patient is the [...]
--- OUTSIDE RECORDS SUMMARY | 2025-08-05 21:44 | XMS_ITS | Clinical Summary ---
Author Organization Spacenets tem Address [facility] [id number] [address] [place] [address] Care Team Providers Care [employer] Product Development Manager Name Role Phone Charito, Britt GUZMAN-EDGE POLISHER Primary Care Provider + Allergies No known [...] mouth in the morning. 10/04/2024 Active coenzyme [id number] 100-5 mg-unit capsule Take 100 mg [...] Orders Only [facility] [address] [place] [id number] Transcribe, Orders Support User Pain (Primary Dx) 06/17/2025 1:38 PM EDT - 06/23/2025 3:00 PM EDT Hospital Encounter [facility] - GEN 8 Acute [address] [place] [address] Mirian Carranza MD Das, Avijit, MD 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 ([facility]) (Primary Dx) Discharge Disposition: [facility] Facility-Medicare Cert 06/17/2025 1:00 PM EDT Ancillary Procedure [facility] [address] [place] [id number] Pain 06/17/2025 12:55 PM EDT Ancillary Procedure [facility] [address] [place] [address] [id number] Pain 06/17/2025 11:35 AM EDT Ancillary Procedure [facility] [address] [place] [phone] Pain 06/17/2025 Travel 06/13/2025 3:50 PM EDT Ancillary Procedure [facility] [address] [place] [phone] Pain 06/13/2025 11:05 AM EDT Ancillary Procedure [facility] [place] [address] Pain 06/13/2025 Orders Only [facility] [address] [place] [phone] Transcribe, Orders Support User Pain (Primary Dx) 06/12/2025 7:35 PM EDT Ancillary Procedure [facility] [address] [place] [phone] Pain 06/12/2025 7:30 PM EDT Ancillary Procedure [facility] [address] [place] [phone] Pain 06/12/2025 6:30 PM EDT - 06/16/2025 1:56 PM EDT Emergency [facility] [address] [place] [address] Discharge Disposition: Telemedicine Discharge 06/12/2025 6:25 PM EDT Ancillary Procedure [facility] [address] [place] [id number] Pain 06/12/2025 6:05 PM EDT Ancillary Procedure [facility] [address] [place] [id number] Pain 06/12/2025 Orders Only [facility] [address] [place] [id number] External, Scanning Provider Pain (Primary Dx) from [...] drink = 0.6 oz pur e alcohol) [facility] Utilities Answer Date Recorded In the [...] Evaluation of progress towards goal: Home with [facility] Medical Devices Not on file Procedures [...] - 146 mmol/L 06/23/2025 1:36 PM EDT [facility] POTASSIUM 4.2 3.5 - 5.0 mmol/L 06/23/2025 1:36 PM EDT [facility] CHLORIDE 96(L) 98 - 109 mmol/L 06/23/2025 1:36 PM EDT [facility] CARBON DIOXIDE 27 22 - 32 mmol/L 06/23/2025 1:36 PM EDT [facility] ANION GAP 10 5 - 15 mmol/L 06/23/2025 1:36 PM EDT [facility] Blood Venous blood / Unknown Venipuncture / Unknown 06/23/2025 12:46 PM EDT 06/23/2025 1:05 PM EDT us Toy Baez MD LAB BLOOD ORDERABLES Final Resul t [facility] [address] [place] [address], [place] [phone] * CBC auto differential (06/23/2025 6:11 AM EDT) Only the most recent of7 resultswithin the time period is included. WBC 4.2 4 - 11 x10E9/L 06/23/2025 7:27 AM EDT [facility] RBC Count 4.40 4.1 - 5.7 X10E12/L 06/23/2025 7:27 AM EDT [facility] Hemoglobin 13.8 13 - 17 g/dL 06/23/2025 7:27 AM EDT [facility] Hematocrit 40.0 39 - 50 % 06/23/2025 7:27 AM EDT [facility] MCV 91 80 - 100 fL 06/23/2025 7:27 AM EDT [facility] MCH 31.3 27 - 34 pg 06/23/2025 7:27 AM EDT [facility] MCHC 34.5 32 - 36 g/dL 06/23/2025 7:27 AM EDT [facility] RDW 13.8 11.5 - 15 % 06/23/2025 7:27 AM EDT [facility] Platelet Count 234 150 - 450 X10E9/L 06/23/2025 7:27 AM EDT [facility] MPV 9.5 7 - 12 fL 06/23/2025 7:27 AM EDT [facility] Neutrophils % 50.6 % 06/23/2025 7:27 AM EDT [facility] Lymphocytes % 34.7 % 06/23/2025 7:27 AM EDT [facility] Monocytes % 10.2 % 06/23/2025 7:27 AM EDT [facility] Eosinophils % 3.0 % 06/23/2025 7:27 AM EDT [facility] Basophils % 1.5 % 06/23/2025 7:27 AM EDT [facility] Neutrophils Absolute (A) 2.1 1.5 - 6.6 10*3/uL 06/23/2025 7:27 AM EDT [facility] Lymphocytes Absolute 1.5 1.0 - 3.5 10*3/uL 06/23/2025 7:27 AM EDT [facility] Monocytes Absolute 0.4 0.0 - 0.9 10*3/uL 06/23/2025 7:27 AM EDT [facility] Eosinophils Absolute 0.1 0.0 - 0.4 10*3/uL 06/23/2025 7:27 AM EDT [facility] Basophils Absolute 0.1 0.0 - 0.2 10*3/uL 06/23/2025 7:27 AM EDT [facility] Differential Type AUTOMATED DIFFERENTIAL 06/23/2025 7:27 AM EDT [facility] Blood Venous blood / Unknown Venipuncture / Unknown 06/23/2025 6:11 AM EDT 06/23/2025 7:14 AM EDT Rocio Davis MD LAB BLOOD ORDERABLES Final Resu lt [facility] [address] [place] [address], [place] [phone] * (ABNORMAL) Protime & INR (06/23/2025 6:11 AM EDT) Only the most recent of6 resultswithin the time period is included. PROTIME 32.1(H) 9.8 - 13.2 sec 06/23/2025 8:52 AM EDT [facility] INR 2.8(H) 0.9 - 1.2 06/23/2025 8:52 AM EDT [facility] Blood Venous blood / Unknown Venipuncture / Unknown 06/23/2025 6:11 AM EDT 06/23/2025 7:14 AM EDT us Rocio Davis MD LAB BLOOD ORDERABLES Final Resu lt [facility] [address] [place] [address], * Phosphorus (06/23/2025 6:11 AM EDT) Only the most recent of2 resultswithin the time period is included. PHOSPHORUS 3.5 2.4 - 4.9 mg/dL 06/23/2025 7:51 AM EDT [facility] Blood Venous blood / Unknown Venipuncture / Unknown 06/23/2025 6:11 AM EDT 06/23/2025 7:14 AM EDT us Toy Baez MD LAB BLOOD ORDERABLES Final Resul t Performing Organization Address [facility] Co de Phone Number [facility] [address] [place] [address], * (ABNORMAL) Magnesium (06/23/2025 6:11 AM EDT) Only the most recent of4 resultswithin the time period is included. MAGNESIUM 1.6(L) 1.8 - 2.6 mg/dL 06/23/2025 7:51 AM EDT [facility] Blood Venous blood / Unknown Venipuncture / Unknown 06/23/2025 6:11 AM EDT 06/23/2025 7:14 AM EDT us Toy Baez MD LAB BLOOD ORDERABLES Final Resul t Performing Organization Address City/[facility]/ZIP Co de Phone Number [facility] [address] [place] [address], * Ionized calcium (06/23/2025 6:11 AM EDT) IONIZED CALCIUM - ICAN 5.1 4.5 - 5.3 mg/dL 06/23/2025 7:36 AM EDT [facility] Blood Venous blood / Unknown Venipuncture / Unknown 06/23/2025 6:11 AM EDT 06/23/2025 7:13 AM EDT us Toy Baez MD LAB BLOOD ORDERABLES Final Resul t [facility] [address] [place] [address], [place] [phone] * (ABNORMAL) Basic Metabolic Panel (06/23/2025 6:11 AM EDT) Only the most recent of6 resultswithin the time period is included. SODIUM 133(L) 134 - 146 mmol/L 06/23/2025 7:51 AM EDT [facility] POTASSIUM 4.5 3.5 - 5.0 mmol/L 06/23/2025 7:51 AM EDT [facility] CHLORIDE 95(L) 98 - 109 mmol/L 06/23/2025 7:51 AM EDT [facility] CARBON DIOXIDE 31 22 - 32 mmol/L 06/23/2025 7:51 AM EDT [facility] ANION GAP 7 5 - 15 mmol/L 06/23/2025 7:51 AM EDT [facility] BLOOD UREA NITROGEN 29(H) 5 - 27 mg/dL 06/23/2025 7:51 AM EDT [facility] CREATININE 0.80 0.60 - 1.30 mg/dL 06/23/2025 7:51 AM EDT [facility] Comment:METHOD TRACEABLE TO IDMS STANDARD GLUCOSE 101(H) 65 - 99 mg/dL 06/23/2025 7:51 AM EDT [facility] CALCIUM 9.9 8.5 - 10.5 mg/dL 06/23/2025 7:51 AM EDT [facility] EGFR Non-Race Dependent 88 >=60 ml/min/1.7 3sq.m 06/23/2025 7:51 AM EDT [facility] Comment: Reported eGFR is based on the CKD-EPI 2020 equation that does not use a race coefficient. Blood Venous blood / Unknown Venipuncture / Unknown 06/23/2025 6:11 AM EDT 06/23/2025 7:14 AM EDT us Rocio Davis MD LAB BLOOD ORDERABLES Final Resu lt Performing Organization Address City/[facility]/ZIP Co de Phone Number [facility] [address] [place] [address], [place] [phone] * ECG 12 Lead (06/22/2025 3:41 PM EDT) 06/22/2025 3:41 PM EDT Narrative TRACEMASTERVUE - 06/23/2025 11:01 AM EDT us Saurabh Crisostomo MD ECG ORDERABLES Final Result Performing Organization Address [facility] de Phone Number TRACEMASTERVUE * Lavender Top (06/22/2025 5:40 AM EDT) Only the most recent of2 resultswithin the time period is included. Extra Tube Auto Resulted 06/22/2025 7:01 AM EDT [facility] Blood Venous blood / Unknown 06/22/2025 5:40 AM EDT 06/22/2025 6:58 AM EDT us Saurabh Crisostomo MD LAB BLOOD ORDERABLES Final Resul t Performing Organization Address City/[facility] Co de Phone Number [facility] [address] [place] [address], [place] [phone] * Anti XA unfractionated heparin (06/22/2025 2:20 AM EDT) Only the most recent of7 resultswithin the time period is included. ANTI XA UFH 0.56 0.30 - 0.70 IU/mL 06/22/2025 3:42 AM EDT [facility] Comment: Optimal time for testing is 6 hrs post dosage This test is specific for monitoring patients on UFH, and is not recommended for use with other Anti-Xa medications. Blood Venous blood / Unknown Venipuncture / Unknown 06/22/2025 2:20 AM EDT 06/22/2025 3:10 AM EDT us Mirian Carranaz MD LAB BLOOD ORDERABLES Final Resul t [facility] [address] [place] [address], [place] [phone] * (ABNORMAL) C-reactive protein (06/21/2025 1:14 PM EDT) C REACTIVE PROTEIN 8.9(H) <=0.7 mg/dL 06/21/2025 3:56 PM EDT [facility] Blood Venous blood / Unknown Venipuncture / Unknown 06/21/2025 1:14 PM EDT 06/21/2025 1:23 PM EDT us Saurabh Crisostomo MD LAB BLOOD ORDERABLES Final Resul t [facility] [address] [place] [address], [place] [phone] * CK Total (06/21/2025 1:14 PM EDT) CPK 26 24 - 195 U/L 06/21/2025 3:56 PM EDT [facility] Blood Venous blood / Unknown Venipuncture / Unknown 06/21/2025 1:14 PM EDT 06/21/2025 1:23 PM EDT us Saurabh Crisostomo MD LAB BLOOD ORDERABLES Final Resul t [facility] [address] [place] [address], [place] [phone] * CT brain without contrast (06/21/2025 10:51 [...] type VENOUS 06/21/2025 10:35 AM EDT [facility] pH, Venous 7.351 7.320 - 7.420 06/21/2025 10:35 AM EDT [facility] pCO2, Venous 51.8(H) 35.0 - 50.0 mmHg 06/21/2025 10:35 AM EDT [facility] pO2, Venous 29(L) 30 - 50 mmHg 06/21/2025 10:35 AM EDT [facility] Base, Excess 2.0 0.0 - 2.0 mmol/L 06/21/2025 10:35 AM EDT [facility] HCO3, Venous 28.7(H) 20.0 - 24.0 mmol/L 06/21/2025 10:35 AM EDT [facility] %O2 Saturation, Venous 50.0 % 06/21/2025 10:35 AM EDT [facility] Romero's test N/A 06/21/2025 10:[address] [facility] Sample site N/A 06/21/2025 10:[address] [facility] Insp. O2 conc. 21 % 06/21/2025 10:[address] [facility] Source Of Oxygen Room Air 06/21/2025 10:35 AM T [facility] venous Venous blood / Unknown 06/21/2025 10:26 AM EDT 06/21/2025 10:35 AM EDT us Saurabh Crisostomo MD LAB BLOOD ORDERABLES Final Resul t [facility] [address] [place] [address], [place] * (ABNORMAL) Erythrocyte Sedimentation Rate (ESR) (06/21/2025 7:58 AM EDT) ESR, Erythrocyte Sedimentation Rate 46(H) 0 - 20 mm/h 06/21/2025 3:44 PM EDT [facility] Blood Venous blood / Unknown Venipuncture / Unknown 06/21/2025 7:58 AM EDT 06/21/2025 8:07 AM EDT Saurabh Crisostomo MD LAB BLOOD ORDERABLES Final Resul t Performing Organization Address [facility] Co de Phone Number [facility] [address] [place] [address], [place] [phone] * EEG VIDEO MONITORING (06/20/2025 6:06 PM [...] or primary neurological disorders. Yaquelin Esparza MD Concrete Floor Installer Neurology/Neurophysiology [facility] Generalized slowing Rocio Davis MD NEUROLOGY ORDERABLES Final Resu lt Performing Organization Address City/[facility] Co de Phone Number MANUALLY TRANSCRIBED RESULTS * DISCONTINUE IN PROCESS EEG TESTING (06/20/2025 6:06 PM EDT) Jose Miguel Maria MD NEUROLOGY ORDERABLES Final Resul t * Urine Creatinine,random (06/20/2025 5:02 PM EDT) URINE CREATININE,RDM 150.26 mg/dL 06/20/2025 5:49 PM EDT [facility] Urine Urine / Unknown 06/20/2025 5 :02 PM EDT 06/20/2025 5:19 PM EDT us Maisha Vergara MD URINE ORDERABLES Final Resu lt [facility] [address] [place] [address], [place] [phone] * Sodium, urine, random (06/20/2025 5:02 PM EDT) URINE SODIUM,RANDOM 64 mmol/L 06/20/2025 5:49 PM EDT [facility] Urine 06/20/2025 5:02 PM EDT 06/20/2025 5:19 PM EDT us Maisha Vergara MD URINE ORDERABLES Final Resu lt Performing Organization Address City/[facility]/ZIP Co de Phone Number [facility] [address] [place] [address], [place] [phone] * Osmolality, urine (06/20/2025 5:02 PM EDT) URINE OSMOLALITY 565 300 - 1,300 mOsm/kg H2 06/20/2025 6:01 PM EDT [facility] Urine 06/20/2025 5:02 PM EDT 06/20/2025 5:19 PM EDT us Maisha Vergara MD URINE ORDERABLES Final Resu lt Performing Organization Address City/[facility]/ZIP Co de Phone Number [facility] [address] [place] [address], [place] [phone] * (ABNORMAL) Thyroid profile includes TSH FT4 (06/20/2025 12:38 PM EDT) FREE T4 1.13 0.61 - 1.60 ng/dL 06/20/2025 2:17 PM EDT [facility] TSH 4.83(H) 0.49 - 4.67 uIU/mL 06/20/2025 2:17 PM EDT [facility] Blood Venous blood / Unknown Venipuncture / Unknown 06/20/2025 12:38 PM EDT 06/20/2025 12:48 PM EDT us Maisha Vergara MD LAB BLOOD ORDERABLES Final Result [facility] [address] [place] [address], * Uric acid (06/20/2025 12:38 PM EDT) URIC ACID 4.4 2.6 - 7.2 mg/dL 06/20/2025 2:22 PM EDT [facility] Blood Venous blood / Unknown Venipuncture / Unknown 06/20/2025 12:38 PM EDT 06/20/2025 12:48 PM EDT Maisha Vergara MD LAB BLOOD ORDERABLES Final Result [facility] [address] [place] [address], [place] [phone] * EEG VIDEO MONITORING IN PROGRESS (06/20/2025 [...] 06/20/2025 This is a standard [facility] EEG monitoring report using scalp and ear [...] or primary neurological disorders. Yaquelin Esparza MD Concrete Floor Installer Neurology/Neurophysiology [facility] us Rocio Davis MD NEUROLOGY ORDERABLES [...] or primary neurological disorders. Yaquelin Esparza MD Concrete Floor Installer Neurology/[facility]phys[facility] Rocio Davis MD NEUROLOGY ORDERABLES Final Resu lt MANUALLY TRANSCRIBED RESULTS * (ABNORMAL) Bedside Glucose *Place/Obtain serum glucose if >500 per glucometer. (06/18/2025 4:01 PM EDT) Only the most recent of2 resultswithin the time period is included. Bedside Glucose (POC) 154(H) 65 - 99 mg/dL 06/18/2025 4:21 PM EDT [facility] arterial/capilla ry 06/18/2025 4:01 PM EDT 06/18/2025 4:21 PM EDT Mirian Carranza MD POINT OF CARE TEST ORDERABLES Fi nal Result Performing Organization Address City/[facility]/ZIP Co de Phone Number [facility] [address] [place] [address], [place] * PST TOP (06/18/2025 3:28 PM EDT) Extra Tube Auto Resulted 06/18/2025 5:01 PM EDT [facility] Blood Venous blood / Unknown Venipuncture / Unknown 06/18/2025 3:28 PM EDT 06/18/2025 3:37 PM EDT Mirian Carranza MD LAB BLOOD ORDERABLES Final Resul t Performing Organization Address City/[facility]/ZIP Co de Phone Number [facility] [address] [place] [address], [place] [phone] * Platelet count (06/18/2025 3:28 PM EDT) [facility] Platelet Count 214 150 - 450 X10E9/L 06/18/2025 3:47 PM EDT [facility] MPV 8.7 7 - 12 fL 06/18/2025 3:47 PM EDT [facility] Blood Venous blood / Unknown Venipuncture / Unknown 06/18/2025 3:28 PM EDT 06/18/2025 3:36 PM EDT us Rocio Davis MD LAB BLOOD ORDERABLES Final Resu lt Performing Organization Address City/[facility]/ZIP Co de Phone Number [facility] [address] [place] [address], [place] [phone] * Hemoglobin (06/18/2025 3:28 PM EDT) Hemoglobin 13.9 13 - 17 g/dL 06/18/2025 3:47 PM EDT [facility] Blood Venous blood / Unknown Venipuncture / Unknown 06/18/2025 3:28 PM EDT 06/18/2025 3:36 PM EDT us Rocoi Davis MD LAB BLOOD ORDERABLES Final Resu lt [facility] [address] [place] [address], [place] [phone] * APTT (06/18/2025 11:01 AM EDT) APTT 29 26 - 37 sec 06/18/2025 2:28 PM EDT [facility] Blood Venous blood / Unknown Venipuncture / Unknown 06/18/2025 11:01 AM EDT 06/18/2025 11:26 AM EDT us Rocio Davis MD LAB BLOOD ORDERABLES Final Resu lt Performing Organization Address City/[facility]/ZIP Co de Phone Number [facility] [address] [place] [address], [place] [phone] * (ABNORMAL) Osmolality (06/18/2025 11:01 AM EDT) OSMOLALITY 261(L) 280 - 300 mOsm/kg H2 06/18/2025 11:44 AM EDT [facility] Blood Venous blood / Unknown Venipuncture / Unknown 06/18/2025 11:01 AM EDT 06/18/2025 11:26 AM EDT us Rocio Davis MD LAB BLOOD ORDERABLES Final Resu lt Performing Organization Address City/[facility]/ZIP Co de Phone Number [facility] [address] [place] [address], [place] [phone] * MR brain without contrast (06/18/2025 9:32 [...] the CT scan of the brain from [facility] of 06/12/2025 and MRI examination of the [...] on 06/18/2025 9:50 AM Rocio Davis MD [facility] MRI ORDERABLES Final Result * (ABNORMAL) Hemoglobin A1c (06/18/2025 3:43 AM EDT) HEMOGLOBIN A1C 5.7(H) 4.4 - 5.6 % 06/18/2025 6:50 AM EDT [facility] Comment: ADA Guidelines Result HgbA1c Normal : less than 5.7 % Prediabetes : 5.7 % to 6.4 % Diabetes : > 6.4 % Use with caution in patients with abnormal hemoglobin variants as the half-life of red blood cells and in vivo glycation rates are affected. EST. AVERAGE GLUCOSE 117 mg/dL 06/18/2025 6:50 AM EDT [facility] Blood Venous blood / Unknown Venipuncture / Unknown 06/18/2025 3:43 AM EDT 06/18/2025 4:41 AM EDT Rocio Davis MD LAB BLOOD ORDERABLES Final Resu lt Performing Organization Address City/[facility]/ZIP Co de Phone Number [facility] [address] [place] [address], [place] [phone] * Lipid profile (06/18/2025 3:43 AM EDT) CHOLESTEROL 150 150 - 200 mg/dL 06/18/2025 5:11 AM EDT [facility] TRIGLYCERIDE 70 27 - 150 mg/dL 06/18/2025 5:11 AM EDT [facility] HDL CHOLESTEROL 41 >39 mg/dL 5:11 AM EDT [facility] Comment: HDL <40 mg/dL - High Risk HDL > or = 40mg/dL- Desirable HDL >60 mg/dL - Negative Risk LDL (CALC) 95 <130 mg/dL 06/18/2025 5:11 AM EDT [facility] Comment: LDL <100 mg/dL - Desirable LDL >160 mg/dL - High Risk CHOLESTEROL:HDL 3.7 1.0 - 5.0 5:11 AM EDT [facility] VERY LOW LIPOPROTEIN 14 0 - 30 mg/dL 06/18/2025 5:11 AM EDT [facility] Blood Venous blood / Unknown Venipuncture / Unknown 06/18/2025 3:43 AM EDT 06/18/2025 4:41 AM EDT us Rocio Davis MD LAB BLOOD ORDERABLES Final Resu lt [facility] [address] [place] [address], [place] [phone] * (ABNORMAL) Comprehensive metabolic panel (06/17/2025 4:53 PM EDT) SODIUM 127(L) 134 - 146 mmol/L 06/17/2025 5:44 PM EDT [facility] POTASSIUM 4.5 3.5 - 5.0 mmol/L 06/17/2025 5:44 PM EDT [facility] CHLORIDE 93(L) 98 - 109 mmol/L 06/17/2025 5:44 PM EDT [facility] CARBON DIOXIDE 26 22 - 32 mmol/L 06/17/2025 5:44 PM EDT [facility] ANION GAP 8 5 - 15 mmol/L 06/17/2025 5:44 PM EDT [facility] BLOOD UREA NITROGEN 10 5 - 27 mg/dL 06/17/2025 5:44 PM EDT [facility] CREATININE 0.75 0.60 - 1.30 mg/dL 06/17/2025 5:44 PM EDT [facility] Comment:METHOD TRACEABLE TO IDMS STANDARD GLUCOSE 94 65 - 99 mg/dL 06/17/2025 5:44 PM EDT [facility] CALCIUM 9.2 8.5 - 10.5 mg/dL 06/17/2025 5:44 PM EDT [facility] TOTAL PROTEIN 6.5 6.0 - 8.0 g/dL 06/17/2025 5:44 PM EDT [facility] ALBUMIN 3.9 3.2 - 5.3 g/dL 06/17/2025 5:44 PM EDT [facility] ALKALINE PHOSPHATASE 81 39 - 130 U/L 06/17/2025 5:44 PM EDT [facility] AST 20 <=41 U/L 06/17/2025 5:44 PM EDT [facility] ALT 11 <=40 U/L 06/17/2025 5:44 PM EDT [facility] BILIRUBIN,TOTAL 1.1 0.3 - 1.2 mg/dL 06/17/2025 5:44 PM EDT [facility] EGFR Non-Race Dependent 90 >=60 ml/min/1.7 3sq.m 06/17/2025 5:44 PM EDT [facility] Comment: Reported eGFR is based on the CKD-EPI 2020 equation that does not use a race coefficient. Blood Venous blood / Unknown Venipuncture / Unknown 06/17/2025 4:53 PM EDT 06/17/2025 5:02 PM EDT us Rocio Davis MD LAB BLOOD ORDERABLES Final Resu lt [facility] [address] [place] [address], * CT cerebral perfusion analysis (06/17/2025 4:12 [...] ON 06/17/2025 5:07 PM Finalized by Nico Depmsey MD on 06/17/2025 5:08 PM Procedure Note [...] 10:31 AM 06/23/2025 6:28 PM Care Teams [employer] Product Development Manager Relationship Specialty Start Date End Date Britt Mcneill APRN-AVELINA [address] [place] [address] PCP - General Family Medicine 06/13/25
--- OUTSIDE RECORDS SUMMARY | 2025-08-05 21:44 | XMS_ITS | Encounter Summary ---
Author Organization [facility] Address [id number] [address] [place] [address] Care Team Providers Care Call Center Receptionist Name Role Phone Britt Mcneill Primary Care Provider + Encounter Details Date Type Department Care Team (Late st Contact Info) Description 06/12/2025 Orders Only [facility] [employer] [facility] [place] [address] External, Scanning Provider Pain (Primary [...] pain documented in this encounter Care Teams Call Center Receptionist Relationship Specialty Start Date End Date Britt Mcneill APRN-CNP [facility] [address] [place] [address] PCP - General Family Medicine 06/13/25 documented as of this encounter
--- OUTSIDE RECORDS SUMMARY | 2025-08-05 21:44 | XMS_ITS | Clinical Summary ---
Author Organization [facility] Address [address], [address] [place] [address] Care Team Providers Care Speaker Mounter Name Role Phone Jules Soledad JIG INSPECTOR - SCREEN PRINTING PASTER Primary Care Provider [phone]- [phone] Allergies No known active allergies Medications gabapentin [...] myelopathy 2011 Overview (06/02/2025): Dr. Denis Adhikari, [facility] Encounters Date Type Department Care Team Description 07/18/2025 Abstract [facility] [address] [address] Flaco Alfaro MD 06/19/2025 Abstract [facility] [address] [address] Flaco Alfaro MD 06/02/2025 10:01 AM EDT - 06/05/2025 6:50 PM EDT Hospital Encounter [facility] [address] [place] [address] Jack Monet, Jermaine Anna, Beto Fowler DO Avasthi, Salil, MD Hyponatremia (Primary Dx) Discharge Disposition: Home or Self Care 06/02/2025 Travel 06/02/2025 Direct Admit Orders [facility] [address] [place] [address] Leelee Easley APRN - TRACTOR TRAILER DRIVER from Last 3 Months Social History Tobacco Use Types Packs/Day Years Used Date Smoking Tobacco: Never Smokeless Tobacco: Never Tobacco Cessation:Counseling Given: Not Answered Alcohol Use Standard Drinks/Week Comments Never 0 (1 standard drink = 0.6 oz pur e alcohol) [facility] Utilities Answer Date Recorded In the [...] [facility] were you [facility] or living in a halfway (including now)? No 06/02/2025 Food Insecurity Answer [...] - 110 mg/dL 06/05/2025 11:48 AM EDT [facility] 06/05/2025 11:4 8 AM EDT 06/05/2025 11:55 AM EDT us Flaco Alfaro MD POINT OF CARE TEST ORDERABLES F inal Result [facility] [address] [place] [address], [facility] [phone] * (ABNORMAL) Electrolyte Panel (06/05/2025 10:43 AM EDT) Only the most recent of6 resultswithin the time period is included. Sodium 127(L) 136 - 145 mmol/L 06/05/2025 10:43 AM EDT [facility] Potassium 4.4 3.7 - 5.3 mmol/L 06/05/2025 10:43 AM EDT [facility] Comment: Specimen hemolysis has exceeded the interference as defined by Sindy. Value may be falsely increased. Suggest recollection if clinically indicated. Chloride 92(L) 98 - 107 mmol/L 06/05/2025 10:43 AM EDT [facility] CO2 19(L) 20 - 31 mmol/L 06/05/2025 10:43 AM EDT [facility] Anion Gap 16 9 - 16 mmol/L 06/05/2025 10:43 AM EDT [facility] Blood BLOOD SPECIMEN / Unknown 06/05/2025 10:43 AM EDT 06/05/2025 2:35 PM EDT us Deann Carter MD CHEMISTRY ORDERABLES Final Resul t Performing Organization Address [facility] de Phone Number [facility] [address] [place] [address] * (ABNORMAL) Protime-INR (06/05/2025 4:49 AM EDT) Only the most recent of4 resultswithin the time period is included. Protime 22.4(H) 11.7 - 14.9 sec 06/05/2025 4:49 AM EDT [facility] INR 1.9 06/05/2025 4:49 AM EDT [facility] Comment: Therapeutic Range: Moderate Anticoagulant Intensity: INR = 2.0-3.0 High Anticoagulant Intensity: INR = 2.5-3.5 Blood BLOOD SPECIMEN / Unknown 06/05/2025 4:49 AM EDT 06/05/2025 4:52 AM EDT us Adore Cueto JIG INSPECTOR - SCREEN PRINTING PASTER HEMATOLOGY ORDERABLES Fi nal Result Performing Organization Address [facility] de Phone Number [facility] [address] [place] [address] * (ABNORMAL) Basic Metabolic Panel (06/05/2025 4:49 AM EDT) Sodium 126(L) 136 - 145 mmol/L 06/05/2025 4:49 AM EDT [facility] Potassium 4.5 3.7 - 5.3 mmol/L 06/05/2025 4:49 AM EDT [facility] Comment: Specimen hemolysis has exceeded the interference as defined by Sindy. Value may be falsely increased. Suggest recollection if clinically indicated. Chloride 95(L) 98 - 107 mmol/L 06/05/2025 4:49 AM EDT [facility] CO2 19(L) 20 - 31 mmol/L 06/05/2025 4:49 AM EDT [facility] Anion Gap 12 9 - 16 mmol/L 06/05/2025 4:49 AM EDT [facility] Glucose 112(H) 74 - 99 mg/dL 06/05/2025 4:49 AM EDT [facility] BUN 13 8 - 23 mg/dL 06/05/2025 4:49 AM EDT [facility] Creatinine 0.8 0.7 - 1.2 mg/dL 06/05/2025 4:49 AM EDT [facility] Est, Glom Filt Rate 88 >60 mL/min/1. 73m2 06/05/2025 4:49 AM EDT [facility] Comment: These results are not intended for [...] - 10.4 mg/dL 06/05/2025 4:49 AM EDT [facility] Blood BLOOD SPECIMEN / Unknown 06/05/2025 4:49 AM EDT 06/05/2025 4:52 AM EDT Beto Hedrick CHEMISTRY ORDERABLES Final R esult [facility] [address] [place] [address], [facility] [phone] * (ABNORMAL) Basic Metabolic Panel w/ Reflex to MG (06/04/2025 10:09 AM EDT) Only the most recent of8 resultswithin the time period is included. Sodium 118(LL) 136 - 145 mmol/L 06/04/2025 10:09 AM EDT [facility] Potassium 4.8 3.7 - 5.3 mmol/L 06/04/2025 10:09 AM T [facility] Comment: Specimen hemolysis has exceeded the interference as defined by Sindy. Value may be falsely increased. Suggest recollection if clinically indicated. Chloride 87(L) 98 - 107 mmol/L 06/04/2025 10:09 AM EDT [facility] CO2 21 20 - 31 mmol/L 06/04/2025 10:09 AM EDT [facility] Anion Gap 10 9 - 16 mmol/L 06/04/2025 10:09 AM EDT [facility] Glucose 107(H) 74 - 99 mg/dL 06/04/2025 10:09 AM EDT [facility] BUN 11 8 - 23 mg/dL 06/04/2025 10:09 AM EDT [facility] Creatinine 0.7 0.7 - 1.2 mg/dL 06/04/2025 10:09 AM EDT [facility] Est, Glom Filt Rate >90 >60 mL/min/1. 73m2 06/04/2025 10:09 AM EDT [facility] Comment: These results are not intended for [...] - 10.4 mg/dL 06/04/2025 10:09 AM EDT [facility] Blood BLOOD SPECIMEN / Unknown 06/04/2025 10:09 AM EDT 06/04/2025 10:18 AM EDT us José Good MD CHEMISTRY ORDERABLES Final Resu lt [facility] [address] [phone] * CT HEAD WO CONTRAST (06/04/2025 4:13 [...] Acute right maxillary sinusitis. Bisi Vaughn MD [facility] ORDERABLES Final Result * TSH (06/04/2025 3:39 AM EDT) TSH 2.95 0.27 - 4.20 uIU/mL 06/04/2025 3:39 AM EDT [facility] Blood BLOOD SPECIMEN / Unknown 06/04/2025 3:39 AM EDT 06/04/2025 4:16 AM EDT Bisi Vaughn MD CHEMISTRY ORDERABLES Final Resu lt Performing Organization Address [facility] Co de Phone Number [facility] [address] [place] [address], [facility] [phone] * T4, Free (06/04/2025 3:39 AM EDT) Pathologist [facility] T4 Free 1.5 0.92 - 1.68 ng/dL 06/04/2025 3:39 AM EDT [facility] Blood BLOOD SPECIMEN / Unknown 06/04/2025 3:39 AM EDT 06/04/2025 4:16 AM EDT Bisi Vaughn MD CHEMISTRY ORDERABLES Final Resu lt Performing Organization Address [facility] Co de Phone Number [facility] [address] [place] [address], [facility] [phone] * Cortisol Total (06/04/2025 3:39 AM EDT) [facility] Cortisol 11.7 2.5 - 19.5 ug/dL 06/04/2025 3:39 AM EDT [facility] Comment: Cortisol Reference Range: AM 6.0-18.4 PM 2.7-10.5 Blood BLOOD SPECIMEN / Unknown 06/04/2025 3:39 AM EDT 06/04/2025 4:16 AM EDT Bisi Vaughn MD CHEMISTRY ORDERABLES Final Resu lt Performing Organization Address [facility] Co de Phone Number [facility] [address] [place] [address], [facility] [phone] * Lactic Acid, POC (06/04/2025 2:02 AM EDT) [facility] POC Lactic Acid 0.8 0.56 - 1.39 mmol/L 06/04/2025 2:02 AM EDT [facility] 06/04/2025 2:02 AM EDT 06/04/2025 2:05 AM EDT Beto [facility] POINT OF CARE TEST ORDERABLE S Final Result Performing Organization Address [facility] de Phone Number [facility] [address] [place] [address], [facility] [phone] * Creatinine W/GFR Point of Care (06/04/2025 2:02 AM EDT) POC Creatinine 0.7 0.51 - 1.19 mg/dL 06/04/2025 2:02 AM EDT [facility] eGFR, POC >90 >60 mL/min/1. 73m2 06/04/2025 2:02 AM EDT [facility] Comment: These results are not intended for [...] 2:02 AM EDT 06/04/2025 2:05 AM EDT [facility] POINT OF [facility]ARE TEST ORDERABLE S Final Result Performing Organization Address [facility] de Phone Number [facility] [address] [place] [address], [facility] [phone] * Arterial Blood Gas, POC (06/04/2025 2:02 AM EDT) POC pH 7.412 7.350 - 7.450 06/04/2025 2:02 AM EDT [facility] POC pCO2 38.6 35.0 - 48.0 mm Hg 06/04/2025 2:02 AM EDT [facility] POC PO2 91.7 83.0 - 108.0 mm Hg 06/04/2025 2:02 AM EDT [facility] POC HCO3 24.6 21.0 - 28.0 mmol/L 06/04/2025 2:02 AM EDT [facility] Positive Base Excess, Art 0.1 0.0 - 3.0 mmol/L 06/04/2025 2:02 AM EDT [facility] POC O2 SAT 97.2 94.0 - 98.0 % 06/04/2025 2:02 AM EDT [facility] O2 Delivery Device Room Air 06/04/2025 2:02 AM EDT [facility] Sample Site Right Radial Artery 06/04/2025 2:02 AM EDT [facility] 06/04/2025 2:02 AM EDT 06/04/2025 2:05 AM EDT us Beto Hedrick DO POINT OF CARE TEST ORDERABLE S Final Result Performing Organization Address [facility] [place] [address], [facility] [phone] * CALCIUM, IONIC (POC) (06/04/2025 2:02 AM EDT) Pathologist [facility] POC Ionized Calcium 1.18 1.15 - 1.33 mmol/L 06/04/2025 2:02 AM EDT [facility] 06/04/2025 2:02 AM EDT 06/04/2025 2:05 AM EDT us Beto Hedrick DO CHEMISTRY ORDERABLES Final R esult Performing Organization Address City/[facility]/[place] [address], [facility] [phone] * (ABNORMAL) ELECTROLYTES PLUS (06/04/2025 2:02 AM EDT) POC Sodium 123(L) 138 - 146 mmol/L 06/04/2025 2:02 AM EDT [facility] POC Potassium 3.9 3.5 - 4.5 mmol/L 06/04/2025 2:02 AM EDT [facility] POC Chloride 89(L) 98 - 107 mmol/L 06/04/2025 2:02 AM EDT [facility] POC TCO2 23 22 - 30 mmol/L 06/04/2025 2:02 AM EDT [facility] POC Anion Gap 12 7 - 16 mmol/L 06/04/2025 2:02 AM EDT [facility] 06/04/2025 2:02 AM EDT 06/04/2025 2:05 AM EDT us Beto Hedrikc DO CHEMISTRY ORDERABLES Final R esult Performing Organization Address [facility]/[place]IP [place] [address], [facility] [phone] * POCT urea (BUN) (06/04/2025 2:02 AM EDT) Pathologist [facility] POC BUN 11 8 - 26 mg/dL 06/04/2025 2:02 AM EDT [facility] 06/04/2025 2:02 AM EDT 06/04/2025 2:05 AM EDT us Beto Hedrick DO POINT OF CARE TEST ORDERABLE S Final Result Performing Organization Address [facility] [place] [address], [facility] [phone] * (ABNORMAL) Hemoglobin and hematocrit, blood (06/04/2025 2:02 AM EDT) Pathologist [facility] POC Hemoglobin (calc) 12.3(L) 13.5 - 17.5 g/dL 06/04/2025 2:02 AM EDT [facility] POC Hematocrit 36(L) 41 - 53 % 06/04/2025 2:02 AM EDT [facility] 06/04/2025 2:02 AM EDT 06/04/2025 2:05 AM EDT us Beto Hedrick DO HEMATOLOGY ORDERABLES Final Result Performing Organization Address [facility] [place] [address], [facility] [phone] * POCT Glucose (06/04/2025 2:02 AM EDT) POC Glucose 81 74 - 100 mg/dL 06/04/2025 2:02 AM EDT [facility] 06/04/2025 2:02 AM EDT 06/04/2025 2:05 AM EDT us Beto Hedrick DO POINT OF CARE TEST ORDERABLE S Final Result Performing Organization Address [facility] Co de Phone Number [facility] [address] [place] [address], [facility] [phone] * Sodium, urine, random (06/04/2025 1:00 AM EDT) Sodium, Ur 159 mmol/L 06/04/2025 1:00 AM EDT [facility] Comment:No normal range esta blished. 06/04/2025 1:00 AM EDT 06/04/2025 1:25 AM EDT us Beto Hedrick DO URINE ORDERABLES Final Resul t Performing Organization Address [facility] Phone Number [facility] [address] [place] [address], [facility] [phone] * Osmolality, Urine (06/04/2025 1:00 AM EDT) Osmolality, Ur 590 80 - 1300 mOsm/kg 06/04/2025 1:00 AM EDT [facility] 06/04/2025 1:00 AM EDT 06/04/2025 1:25 AM EDT us Beto Hedrick DO URINE ORDERABLES Final Resul t Performing Organization Address [facility] Phone Number [facility] [address] [place] [address], [facility] [phone] * PREVIOUS SPECIMEN (06/03/2025 6:43 PM EDT) 06/03/2025 6:43 PM EDT 06/03/2025 6:49 PM EDT [facility] CHEMISTRY ORDERABLES Final R esult Performing Organization Address City/[facility]/ZIP Co [place] [address], [facility] [phone] * (ABNORMAL) Osmolality (06/03/2025 6:43 PM EDT) Pathologist [facility] Serum Osmolality 251(L) 275 - 295 mOsm/kg 06/03/2025 6:43 PM EDT [facility] 06/03/2025 6:43 PM EDT 06/03/2025 7:00 PM EDT [facility] CHEMISTRY ORDERABLES Final R [facility] Performing Organization Address [facility] Co [place] [address], [facility] [phone] * (ABNORMAL) CBC with Auto Differential (06/03/2025 6:18 AM EDT) Only the most recent of2 resultswithin the time period is included. Pathologist [facility] WBC 7.2 3.5 - 11.3 k/uL 06/03/2025 6:18 AM EDT [facility] RBC 3.98(L) 4.21 - 5.77 m/uL 06/03/2025 6:18 AM EDT [facility] Hemoglobin 12.3(L) 13.0 - 17.0 g/dL 06/03/2025 6:18 AM EDT [facility] Hematocrit 35.2(L) 40.7 - 50.3 % 06/03/2025 6:18 AM EDT [facility] MCV 88.4 82.6 - 102.9 fL 06/03/2025 6:18 AM EDT [facility] MCH 30.9 25.2 - 33.5 pg 06/03/2025 6:18 AM EDT [facility] MCHC 34.9(H) 28.4 - 34.8 g/dL 06/03/2025 6:18 AM EDT [facility] RDW 13.0 11.8 - 14.4 % 06/03/2025 6:18 AM EDT [facility] Platelets See Reflexed IPF Result 138 - 453 k/uL 06/03/2025 6:18 AM EDT [facility] Platelet, Fluorescence 132(L) 138 - 453 k/uL 06/03/2025 6:18 AM EDT [facility] Platelet, Immature Fraction 5.3 1.1 - 10.3 % 06/03/2025 6:18 AM EDT [facility] NRBC Automated 0.0 0.0 per 100 WBC 06/03/2025 6:18 AM EDT [facility] Neutrophils % 64 36 - 65 % 06/03/2025 6:18 AM EDT [facility] Lymphocytes % 23(L) 24 - 43 % 06/03/2025 6:18 AM EDT [facility] Monocytes % 11 3 - 12 % 06/03/2025 6:18 AM EDT [facility] Eosinophils % 1 1 - 4 % 06/03/2025 6:18 AM EDT [facility] Basophils % 1 0 - 2 % 06/03/2025 6:18 AM EDT [facility] Immature Granulocytes % 0 0 % 06/03/2025 6:18 AM EDT [facility] Neutrophils Absolute 4.63 1.50 - 8.10 k/uL 06/03/2025 6:18 AM EDT [facility] Lymphocytes Absolute 1.68 1.10 - 3.70 k/uL 06/03/2025 6:18 AM EDT [facility] Monocytes Absolute 0.80 0.10 - 1.20 k/uL 06/03/2025 6:18 AM EDT [facility] Eosinophils Absolute 0.08 0.00 - 0.44 k/uL 06/03/2025 6:18 AM EDT [facility] Basophils Absolute 0.04 0.00 - 0.20 k/uL 06/03/2025 6:18 AM EDT [facility] Immature Granulocytes Absolute <0.03 0.00 - 0.30 k/uL 06/03/2025 6:18 AM EDT [facility] Blood BLOOD SPECIMEN / Unknown 06/03/2025 6:18 AM EDT 06/03/2025 6:46 AM EDT us Adore Miester JIG INSPECTOR - SCREEN PRINTING PASTER HEMATOLOGY ORDERABLES Fi nal Result [facility] [address] [place] [address], [facility] [phone] from Last 3 Months Insurance [facility] MEDICARE [facility] MEDICARE Advance Directives * Full Code (Latest Code Status on File) Date Activated Date Inactivated Comments 06/02/2025 12:05 PM 06/05/2025 9:24 PM Care Teams Speaker Mounter Relationship Specialty Start Date End Date Soledad Vicente APRN - CHRISTOPHER [address] [place] [phone] PCP - General 06/05/25
--- OUTSIDE RECORDS SUMMARY | 2025-08-05 21:44 | XMS_ITS | Encounter Summary ---
Author Organization [facility] Address [id number] [address] [place] [address] Care Team Providers Care Manager Basketball Name Role Phone Britt Mcneill SWIMMING POOL MAINTENANCE-SCOOP OPERATOR Primary Care Provider + Encounter Details Date Type Department Care Team (Late st Contact Info) Description 06/13/2025 Orders Only [facility] [address] [place] [phone] Transcribe, Orders Support User Pain (Primary Dx) Social History Tobacco Use Types Packs/Day Years Used Date Smoking Tobacco: Never Assessed [facility] Utilities Answer Date Recorded In the past [...] pain documented in this encounter Care Teams Manager Basketball Relationship Specialty Start Date End Date Britt Mcneill APRN-SCOOP OPERATOR [address] [place] [address] PCP - General Family Medicine 06/13/25 documented as of this encounter
--- OUTSIDE RECORDS SUMMARY | 2025-08-05 21:46 | XMS_ITS | CCD ---
Author Organization [facility] Care Team Providers Care Violin Mechanic Name Role Phone Jada Rene Unavailable Unavailable Primary Care Provider UnavailEdwin Fletcher Primary Care Physician [phone] Irene COHN, Nathaniel Longo Attending Unavailable Edwin Garcia MD Primary Care Provider Edwin Garcia Attending Unavailable Edwin Garcia Admitting Unavailable Hernández, Axel T Admitting Unavailable Hernández, Axel T Attending Unavailable Hernández, Axel T Referring Unavailable Edwin Garcia Attending Unavailable Edwin Garcia Attending Unavailable Hernández, Xael T Admitting Unavailable Hernández, Axel T Attending [...] Attending Unavailable Edwin Garcia Attending Unavailable MoDavie chritsian Attending Unavailable Edwin Garcia Referring Unavailable Davie Vargas Attending Unavailable NONE, XXXX Referring Unavailable Kirnus, Kashif D Admitting Unavailable Kirnus, Kashif D Attending Unavailable Jules EXTRACT MIXER - RIGGER CHIEFJaden Primary Care Provider [phone] Edwin Garcia Referring Unavailable LALITHA Dubose Admitting Unavailable LALITHA Dubose Attending Unavailable AVASTHFLACO Bansal Attending Unavailable AVASTHRolf FLACO Admitting Unavailable JADEN MARVAILLA Primary Care Unavailable KAYE BARNETT Referring Unavailable [...] Unavailable MD Edwin Garcia Attending Unavailable Reyes EXTRACT MIXER-Yanique QUAN Primary Care Provider YANIQUE MCNEILL A Attending Unavailable Jules Jaden L Attending Unavailable REYES, YANIQUE A Attending Unavailable REYES, YANIQUE A Attending Unavailable REYES, YANIQUE A Admitting Unavailable REYES, YANIQUE A Attending Unavailable REYES, YANIQUE A Attending Unavailable REYSE, YANIQUE A Admitting Unavailable REYES, YANIQUE A Admitting Unavailable REYES, YANIQUE A Admitting Unavailable Reyes FAT PRESSROOM WORKER-BC, Yanique A Primary Care Provider Billy COHN, Thalia Admit Provider Billy COHN, Thalia Other Provider Dev Archuleta DO Other Provider Darien Gordillo MD Other Provider Win Santillan DO Other Provider Leila COHN, Axel Attending Provider [phone] Axel Dee MD Other Provider Edwin Garcia [...] Medication Allergies] Propensity to adverse reactions (disorder) [facility] Repository Medications Current Medications Medication Drug [...] every four hours as needed for pain [place] 325 mg-5 mg oral tablet See Instructions, [...] daily, # 90 tab(s), Refills(s) 1, Pharmacy: [facility], 178, cm, 09/10/24 13:01:00 EDT, Height/Length Dosing, 80.1, kg, 09/10/24 13:01:00 EDT, Weight Dosing Start Date: 10/22/24 Status: Ordered Quantity: 90.0 Unit: tab(s) Repeat number: 2 Start: 04-20-2024 atenolol 25 mg Tab See Instructions, take 1/2 tab daily, # 30 tab(s), Refills(s) 5, Pharmacy: [facility]/pharmacy #[id number], 180, cm, 04/20/24 13:27:00 EDT, Height/Length Dosing, [...] Corticosteroid Start: 08-31-20 fluticasone Nasal 0.05 mg/inh [place] See Instructions, 48 mL, Refill(s) 1, USE 1 SPRAY IN EACH NOSTRIL TWICE A DAY, [facility] ST[id number], 178, cm, 08/28/24 14:50:00 EDT, Height/Length Dosing, 82.2, kg, 08/28/24 14:50:00 EDT, Weight Dosing Start Date: 08/31/24 Status: Ordered Start: 07-03-2024 take 1 spray(s) nasa l route twice daily Flonase 0.05 mg/inh [place] 1 spray(s), Nasal, BID, 16 gram, Refill(s) 0, each nostril, [facility]/pharmacy #[id number], 178, cm, 07/03/24 10:05:00 [...] STOMACH, # 90 tab(s), Refills(s) 1, Pharmacy: [id number], 178.6, cm, 02/05/25 13:36:00 EDT, Height/Length Dosing, 82.2, kg, 02/05/25 13:36:00 EDT, Weight Dosing Start Date: 03/07/25 Status: Ordered Quantity: 90.0 Unit: tab(s) Repeat number: 1 Start: 08-20-2024 Synthroid 25 m cg(0.025 mg) Tab See Instructions, TAKE 1 TABLET DAILY ON AN EMPTY STOMACH, # 3 tab(s), Refills(s) 0, Pharmacy: [facility]/pharmacy #[id number], 178, cm, 08/07/24 10:59:00 EDT, Height/Length Dosing, 78.2, kg, 08/07/24 10:59:00 EDT, Weight Dosing Start Date: 08/20/24 Status: Ordered Quantity: 3.0 Unit: tab(s) Repeat number: 1 Start: 02-13-2024 take 1 tablet by alyssa once daily levothyroxine 25 mcg (0.025 mg) Tab 25 mcg = 1 tab(s), Oral, Daily, on an empty stomach, # 90 tab(s), Refills(s) 1, Pharmacy: [facility], 178.2, cm, 02/02/24 10:29:00 EDT, Height/Length [...] DAILY, # 30 tab(s), Refills(s) 2, Pharmacy: [facility], 178.6, cm, 02/05/25 13:36:00 EDT, Height/Length Dosing, 82.2, kg, 02/05/25 13:36:00 EDT, Weight Dosing Start Date: 04/25/25 Status: Ordered Quantity: 30.0 Unit: tab(s) Repeat number: 3 Start: 01-07-2025 take 1 tablet by alyssa th once daily meloxicam 7.5 mg Tab 7.5 mg = 1 tab(s), Oral, Daily, TAKE 1 TABLET DAILY, # 30 tab(s), Refills(s) 2, Pharmacy: [facility], 178.6, cm, 12/24/24 13:13:00 EST, Height/Length Dosing, 79, kg, 12/24/24 13:13:00 EST, Weight Dosing Start Date: 01/07/25 Status: Ordered Quantity: 30.0 Unit: tab(s) Repeat number: 3 Start: 12-06-2024 take 1 tablet by alyssa th once daily meloxicam 7.5 mg Tab 7.5 mg = 1 tab(s), Oral, Daily, TAKE 1 TABLET DAILY, # 30 tab(s), Refills(s) 2, Pharmacy: [facility], 178.6, cm, 11/01/24 9:21:00 EST, Height/Length [...] activity, # 5 tab(s), Refills(s) 0, Pharmacy: [facility], 178, cm, 07/03/24 10:05:00 EDT, Height/Length [...] (2 times per day), First dose on Tarrs 06/02/25 at 2100, Until Discontinued, For Line [...] HOURS, First dose (after last modification) on Tarrs 06/02/25 at 1415, Until Discontinued Start: 06-02-2025 IntraVENous, a t 5-250 mL/hr, PRN, if patient receiving piggyback infusions and maintenance fluids are not ordered, Starting on Tarrs 06/02/25 at 1205, For piggyback infusion, administer [...] needed 10 mL, IntraVENous, PRN, Starting on Tarrs 06/02/25 at 1205, Until Discontinued, Line Care, After every IV line use Start: 05-14-2025 End: 06-05-2025 take 1000 mg by mouth three times daily 1,000 mg, oral, 3 times daily around food, First dose (after last modification) on [facility] 06/20/25 at 1700 Start: 05-14-2025 Sodium Chlorid e 1 g oral tablet See Instructions, Take 1g BID daily, # 180 tab(s), Refills(s) 0, Pharmacy: [facility]/pharmacy #[id number], 178.6, cm, 05/09/25 8:18:00 EDT, Height/Length Dosing, 80.6, kg, 05/09/25 8:18:00 EDT, Weight Dosing Start Date: 05/14/25 Status: Ordered Quantity: 180.0 Unit: tab(s) Repeat number: 1 Start: 02-06-2025 Sodium Chlorid e 1 g oral tablet See Instructions, Take 1g BID daily, # 60 tab(s), Refills(s) 3, [id number], 178.6, cm, 02/05/25 13:36:00 EDT, Height/Length Dosing, 82.2, kg, 02/05/25 13:36:00 EDT, Weight Dosing Start Date: 02/06/25 Status: Ordered Quantity: 60.0 Unit: tab(s) Repeat number: 4 Start: 01-24-2025 take 1 tablet by alyssa th twice daily Sodium Chloride 1 g oral tablet See Instructions, 1 gram orally BID, # 180 tab(s), Refills(s) 0, Pharmacy: [facility], 178.6, cm, 01/24/25 13:29:00 EDT, Height/Length Dosing, 82.7, kg, 01/24/25 13:29:00 EDT, Weight Dosing Start Date: 01/24/25 Status: Ordered Start: 01-07-2025 take 1 tablet by mouth once da rasta Sodium Chloride 1 g oral tablet See Instructions, 1 gram orally daily, # 90 tab(s), Refills(s) 0, [id number], 178.6, cm, 12/24/24 13:13:00 EST, Height/Length Dosing, 79, kg, 12/24/24 13:13:00 EST, Weight Dosing Start Date: 01/07/25 Status: Ordered Start: 12-26-2024 take 1 tablet by mouth once da rasta Sodium Chloride 1 g oral tablet See Instructions, 1 gram orally daily, # 90 tab(s), Refills(s) 0, Pharmacy: [facility], 178.6, cm, 12/24/24 13:13:00 EST, Height/Length Dosing, 79, kg, 12/24/24 13:13:00 EST, Weight Dosing Start Date: 12/26/24 Status: Ordered Start: 12-17-2024 take 1 tablet by mouth once da rasta Sodium Chloride 1 g oral tablet See Instructions, 1 gram orally daily, # 90 tab(s), Refills(s) 0, Pharmacy: [facility], 178.6, cm, 12/17/24 15:05:00 EST, Height/Length Dosing, 78.5, kg, 12/17/24 15:05:00 EST, Weight Dosing Start Date: 12/17/24 Status: Ordered Start: 06-27-2024 take 1 tablet by mouth once da rasta Sodium Chloride 1 g oral tablet See Instructions, 1 gram orally daily, # 90 tab(s), Refills(s) 0, [id number], 178, cm, 06/11/24 12:53:00 EDT, [...] DAY, # 90 tab(s), Refills(s) 2, [id number], 180.5, cm, 03/20/24 15:05:00 EDT, [...] DAY, # 90 tab(s), Refills(s) 2, Pharmacy: [facility], 178.2, cm, 12/01/23 13:40:00 EST, Height/Length Dosing, 85.5, kg, 12/01/23 13:40:00 EST, Weight Dosing Start Date: 12/23/23 Status: Ordered Sodium Chloride 1000 mg oral tablet, soluble (1 source) Start: 11-13-2024 take 1 tablet by mouth once daily Sodium Chloride 1000 mg oral tablet, soluble See Instructions, 30 tab(s), Refill(s) 0, Take one tablet daily, [facility]/pharmacy #[id number], 178.6, cm, 11/01/24 9:21:00 [...] dysfunction, # 7 tab(s), Refills(s) 0, Pharmacy: [facility]/pharmacy #[id number], 178.6, cm, 02/05/25 [...] for injection by adding 1 mL of jacquard loom weaver-supplied sterile diluent or sterile water for injection [...] by mouth daily Suspended polyethylene glycol 3350 42612 mg powder for oral solution (1 source) [...] Comment on above: Take 1 capsule by [facility] daily at bedtime. 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 Episodic Other aftercare (1 source) Post-discharge follow-up 12-17-2024 Episodic Other aftercare (2 sources) Anticoagulant effect; Translations: [assisted (current) use of anticoagulants] Onset: 5 06-02-2025 [...] vascular disease; Translations: [Atherosclerotic heart disease of [place] coronary artery without angina pectoris] Onset: 5 [...] AM EDT With: YANIQUE MCNEILL CNP Where: [address] [id number] 8:00 AM EDT With: Where: [facility] [place] [address] [place] [address]- Medications What How Much When Why Instructions [...] disease BMI 23.0-23.9, adult Nonsmoker Natural Lemon [place] flavor Unchanged pravastatin (pravastatin 40 mg Tab) [...] Erectile dysfuncti (more content not included)... Normal [facility] Office/Clini c Noteon 07-25-2025 [...] health services, although they were ordered by [facility] to assist with gastrointestinal and genitourinary [...] 7.5 mg (more content not included)... Normal [facility] Comment on above: Result Comment: Elec tronically Signed By: YANIQUE MCNEILL CNP\.claudio\Date and Time Signed: 07/25/25 11:58 EDT Glucose Poct Glucometerson 0 07-23-2025 Glucose [Mass/Vol] 137 mg/dL Normal The Count includes the [facility] Comment on above: Result Comment: [facility] Glucose Reference Range is dependent on time and content of last meal. Glucose of more than 200 mg/dL in a nonstressed, ambulatory subject supports the diagnosis of Diabetes Mellitus. PERFORMED BY: [address] [place] [address] PATHOLOGIST CANTILEVER CRANE OPERATOR MARIAM WANG M.D. Performed By: #### C DT #### [facility] [address] CBC W Auto Differential pane l (Bld)on 07-22-2025 Basophils (Bld) [#/Vol] 0 10*3/uL 0.0 - 0.2 10*3/uL [facility] Basophils/100 WBC Manual cnt (Syn fld) 0.4 % . [facility] care Eosinophils (Bld) [#/Vol] 0.1 10*3/uL 0.0 - 0.45 10*3/uL [facility] Eosinophils/100 WBC Manual cnt (Syn fld) 2.2 % . [facility] Erythrocyte distribution width (RBC) [Ratio] 13.6 % 12.0 - 14.8 % [facility] Hematocrit (Bld) [Volume fraction] 32.4 % Low 38.8 - 50.0 % [facility] Hemoglobin (Bld) [Mass/Vol] 11.2 g/dL Low 13.0 - 17.0 g/dL [facility] Interpretation and review of laboratory results Abnormal [facility] Lymphocytes (Bld) [#/Vol] 1.2 10*3/uL 1.00 - 4.8 10*3/uL [facility] Lymphocytes/100 WBC Manual cnt (Syn fld) 16.8 % . [facility] MCH (RBC) [Entitic mass] 31.5 pg 27.5 - 35.2 pg [facility] MCHC (RBC) [Mass/Vol] 34.4 g/dL 32.5 - 35.6 g/dL [facility] MCV (RBC) [Entitic vol] 91.5 fL 83.5 - 101 fL [facility] Monocytes (Bld) [#/Vol] 0.6 10*3/uL 0.0 - 0.8 10*3/uL [facility] Monocytes+Macrophages /100 WBC Manual cnt (Syn fld) 8.3 % . [facility] Neutrophils (Bld) [#/Vol] 5 10*3/uL 1.8 - 7.7 10*3/uL [facility] Neutrophils/100 WBC Manual cnt (Syn fld) 72.3 % . [facility] NRBC 0.1 /100{WBC} 0 - 0.5 /100{WBC} [facility] Platelet mean volume (Bld) [Entitic vol] 8.8 fL 6.6 - 10.1 fL [facility] Platelets (Bld) [#/Vol] 157 10*3/uL 150 - 450 10*3/uL [facility] RBC LM.HPF (Urine sed) [#/Area] 3.54 10*6/uL Low 3.90 - 5.60 10*6/uL [facility] WBC (Bld) [#/Vol] 6.9 10*3/uL 4.1 - 10.5 10*3/uL [facility] WBC LM.HPF (Urine sed) [#/Area] 6.9 [CFU]/mL 4.1 - 10.5 [CFU]/mL [facility] Complete Blood Count Auto Di ffon 07-22-2025 Basophils (Bld) [#/Vol] 0.0 10*3/uL Normal 0.0-0.2 [facility] Comment on above: Result Comment: PERF ORMED BY: [place] [address] PATHOLOGIST CANTILEVER CRANE OPERATOR MARIAM WANG M.D. Performed By: #### C DT #### [address] Basophils/100 WBC (Bld) 0.4 % Normal . [facility] Comment on above: Performed By: #### C DT #### [place] [address] [place] Eosinophils (Bld) [#/Vol] 0.1 10*3/uL Normal 0.0-0.45 [facility] Comment on above: Performed By: #### C DT #### [place] [address] [place] Eosinophils/100 WBC (Bld) 2.2 % Normal . [facility] Comment on above: Performed By: #### C DT #### [address] Erythrocyte distribution width (RBC) [Ratio] 13.6 % Normal 12.0-14.8 [facility] Comment on above: Performed By: #### C DT #### [address] Hematocrit (Bld) [Volume fraction] 32.4 % Low 38.8-50.0 [facility] Comment on above: Performed By: #### C DT #### [address] Hemoglobin (Bld) [Mass/Vol] 11.2 g/dL Low 13.0-17.0 [facility] Comment on above: Performed By: #### C DT #### [address] Lymphocytes (Bld) [#/Vol] 1.2 10*3/uL Normal 1.00-4.8 [facility] Comment on above: Performed By: #### C DT #### [address] Lymphocytes/100 WBC (Bld) 16.8 % Normal . [facility] Comment on above: Performed By: #### C DT #### [address] MCH (RBC) [Entitic mass] 31.5 pg Normal 27.5-35.2 [facility] Comment on above: Performed By: #### C DT #### [address] MCV (RBC) [Entitic vol] 91.5 fL Normal 83.5-101 [facility] Comment on above: Performed By: #### C DT #### [address] Mean Corpuscular HGB Conc 34.4 g/dL Normal 32.5-35.6 [facility] Comment on above: Performed By: #### C DT #### [address] Monocytes (Bld) [#/Vol] 0.6 10*3/uL Normal 0.0-0.8 [facility] Comment on above: Performed By: #### C DT #### [facility] [address] Monocytes/100 WBC (Bld) 8.3 % Normal . [facility] Comment on above: Performed By: #### C DT #### [address] Neutrophils (Bld) [#/Vol] 5.0 10*3/uL Normal 1.8-7.7 [facility] Comment on above: Performed By: #### C DT #### [address] Neutrophils/100 WBC (Bld) 72.3 % Normal . [facility] Comment on above: Performed By: #### C DT #### [address] NRBC% 0.1 /100{WBC} Normal 0-0.5 [facility] Comment on above: Performed By: #### C DT #### [address] Platelet mean volume (Bld) [Entitic vol] 8.8 fL Normal 6.6-10.1 [facility] Comment on above: Performed By: #### C DT #### [place] [address] [place] Platelets (Bld) [#/Vol] 157 10*3/uL Normal 150-450 [facility] Comment on above: Performed By: #### C DT #### [place] [address] [place] RBC (Bld) [#/Vol] 3.54 10*6/uL Low 3.90-5.60 [facility] Comment on above: Performed By: #### C DT #### [place] [address] [place] WBC (Bld) [#/Vol] 6.9 10*3/uL Normal 4.1-10.5 [facility] Comment on above: Performed By: #### C DT #### [address] White Blood Count 6.9 [CFU]/mL Normal 4.1-10.5 [facility] Comment on above: Performed By: #### C DT #### [facility] [address] [place] [id number] [facility] Comprehensive Metabolic Pane [facility] 07-22-2025 Albumin [Mass/Vol] 3.4 g/dL Low 3.5-5.7 The Count includes the [facility] Comment on above: Order Comment: per r n isaias. arr 0851. Performed By: #### G LULS #### Point of Care testing , Albumin/Globulin [Mass ratio] 1.5 {ratio} Normal [facility] Comment on above: Order Comment: per r n isaias. arr 0851. Performed By: #### G LULS #### Point of Care testing , ALP [Catalytic activity/Vol] 73 U/L Normal 34-104 [facility] Comment on above: Order Comment: per r n isaias. arr 0851. Performed By: #### G LULS #### Point of Care testing , ALT [Catalytic activity/Vol] 15 U/L Normal 7-52 [facility] Comment on above: Order Comment: per r n isaias. arr 0851. Performed By: #### G LULS #### Point of Care testing , Anion gap [Moles/Vol] 6.6 mmol/L Normal 6.0-15.0 [facility] Comment on above: Order Comment: per r n isaias. arr 0851. Performed By: #### G LULS #### Point of Care testing , AST [Catalytic activity/Vol] 22 U/L Normal 13-39 [facility] Comment on above: Order Comment: per r n isaias. arr 0851. Performed By: #### G LULS #### Point of Care testing , Bilirubin [Mass/Vol] 0.6 mg/dL Normal 0.3-1.0 [facility] Comment on above: Order Comment: per r n isaias. arr 0851. Performed By: #### G LULS #### Point of Care testing , Calcium [Mass/Vol] 8.5 mg/dL Low 8.6-10.3 The Count includes the [facility] Comment on above: Order Comment: per r romina esparza. arr 0851. Performed By: #### G LULS #### Point of Care testing , Chloride [Moles/Vol] 101 mmol/L Normal 98-107 [facility] Comment on above: Order Comment: per r romina thomasel. arr 0851. Performed By: #### G LULS #### Point of Care testing , CO2 [Moles/Vol] 27.1 mmol/L Normal 21.0-31.0 [facility] Comment on above: Order Comment: per r romina esparza. arr 0851. Performed By: #### G LULS #### Point of Care testing , Creatinine [Mass/Vol] 0.83 mg/dL Normal 0.70-1.30 [facility] Comment on above: Order Comment: per r romina esparza. arr 0851. Performed By: #### G LULS #### Point of Care testing , Creatinine Clr Calc Pharmacy 71.82 Normal [facility] Comment on above: Order Comment: per r romina esparza. arr 0851. Result Comment: PERF ORMED BY: [facility] [address] [place] [address] PATHOLOGIST CANTILEVER CRANE OPERATOR MARIAM WANG M.D. Performed By: #### G LULS #### Point of Care testing , GFR/1.73 sq M.predicted MDRD (S/P/Bld) [Vol rate/Area] mL/min/{1.73_m2} Normal [facility] Comment on above: Order Comment: per r romina esparza. arr 0851. Performed By: #### G LULS #### Point of Care testing , Globulin (S) [Mass/Vol] 2.3 g/dL Normal [facility] Comment on above: Order Comment: per r romina esparza. arr 0851. Performed By: #### G LULS #### Point of Care testing , Glucose [Mass/Vol] 116 mg/dL High 70-100 The Count includes the [facility] Comment on above: Order Comment: per r romina esparza. arr 0851. Result Comment: [facility] Glucose Reference Range is dependent on time and content of last meal. Glucose of more than 200 mg/dL in a nonstressed, ambulatory subject supports the diagnosis of Diabetes Mellitus. ADA recommended reference range Performed By: #### G LULS #### Point of Care testing , Potassium [Moles/Vol] 3.7 mmol/L Normal 3.5-5.1 [facility] Comment on above: Order Comment: per joyce esparza. arr 0851. Performed By: #### G LULS #### Point of Care testing , Protein [Mass/Vol] 5.7 g/dL Low 6.4-8.9 The Count includes the [facility] Comment on above: Order Comment: per joyce esparza. arr 0851. Performed By: #### G LULS #### Point of Care testing , Sodium [Moles/Vol] 131 mmol/L Low 136-145 The Count includes the [facility] Comment on above: Order Comment: per joyce esparza. arr 0851. Performed By: #### G LULS #### Point of Care testing , Urea nitrogen [Mass/Vol] 12 mg/dL Normal 7-25 [facility] Comment on above: Order Comment: per joyce esparza. arr 0851. Performed By: #### G LULS #### Point of Care testing , Glucose Poct Glucometerson 0 07-22-2025 Glucose [Mass/Vol] 168 mg/dL Normal The Count includes the [facility] Comment on above: Result Comment: [facility] Glucose Reference Range is dependent on time and content of last meal. Glucose of more than 200 mg/dL in a nonstressed, ambulatory subject supports the diagnosis of Diabetes Mellitus. PERFORMED BY: [facility] [address] [facility] [place] [address] PATHOLOGIST CANTILEVER CRANE OPERATOR MARIAM WANG M.D. Performed By: #### G LULS #### Point of Care testing , Glucose [Mass/Vol] 70 mg/dL Normal The Count includes the [facility] Comment on above: Result Comment: [facility] Glucose Reference Range is dependent on time and content of last meal. Glucose of more than 200 mg/dL in a nonstressed, ambulatory subject supports the diagnosis of Diabetes Mellitus. PERFORMED BY: [facility] [address] [place] [id number] PATHOLOGIST CANTILEVER CRANE OPERATOR MARIAM WANG M.D. Performed By: #### G LULS #### Point of Care testing , Glucose [Mass/Vol] 94 mg/dL Normal The Count includes the [facility] Comment on above: Result Comment: [place] [facility] Glucose Reference Range is dependent on time and content of last meal. Glucose of more than 200 mg/dL in a nonstressed, ambulatory subject supports the diagnosis of Diabetes Mellitus. PERFORMED BY: [place] [id number] PATHOLOGIST CANTILEVER CRANE OPERATOR MARIAM WANG M.D. Performed By: #### C DT #### [address] Glucose [Mass/Vol] 86 mg/dL Normal The Count includes the [facility] Comment on above: Result Comment: [place] [facility] Glucose Reference Range is dependent on time and content of last meal. Glucose of more than 200 mg/dL in a nonstressed, ambulatory subject supports the diagnosis of Diabetes Mellitus. PERFORMED BY: [place] [address] PATHOLOGIST [employer]ILEVER CRANE OPERATOR MARIAM WANG M.D. Performed By: #### C DT #### [address] Glucose [Mass/Vol] 63 mg/dL Normal The Count includes the [facility] Comment on above: Result Comment: [place] om Glucose Reference Range is dependent on time and content of last meal. Glucose of more than 200 mg/dL in a nonstressed, ambulatory subject supports the diagnosis of Diabetes Mellitus. PERFORMED BY: [place] [address] PATHOLOGIST CANTILEVER CRANE OPERATOR MARIAM WANG M.D. Performed By: #### G LULS #### Point of Care testing , Vancomycin,Troughon -08-20 25 Vancomycin,Trough 12.0 Normal 10.0-20.0 The [facility] Comment on above: Order Comment: > or = to 3 loose/watery stools in the last 24 HRS? Y Is patient on promotility agents or tube feeding? N Result Comment: Last dose: - PERFORMED BY: [place] [address] PATHOLOGIST CANTILEVER CRANE OPERATOR MARIAM WANG M.D. Performed By: #### C DT #### [place] [id number] [facility] C-Reactive Proteinon 025 C-Reactive Protein 12.1 mg/dL High 0.0-0.5 The Count includes the [facility] Comment on above: Result Comment: PERF ORMED BY: [place] [address] PATHOLOGIST CANTILEVER CRANE OPERATOR MARIAM WANG M.D. Performed By: #### C DT #### [address] CRP [Mass/Vol]on 07-21-2025 C-REACTIVE PROTEIN 12.1 mg/dL High 0.0 - 0.5 mg/dL [facility] Interpretation and review of laboratory results Abnormal [facility] angio abdomen pelvison CT angio abdomen pelvis [facility] [place] [address] [place] [address] CT Scan Report Signed Patient: Dariel Zabala MR#: [id number] 9 : 1940 Acct:[id number] Age/Sex: 85 / M ADM Date: 07/19/25 Loc: Room: [address] [place] [address] Type: ADM IN Attending Dr: Thalia Cervantes [...] Jr., D.O. 07/21/2025 1:05 PM Dictation Location: [facility]18 Transcribed By: [facility] 07/21/25 1305 Dictated By: Dariel Gooden Jr, DO 07/21/25 1258 Signed By: 07/21/25 1305 Normal [facility] Complete Blood Count Auto Di ffon 07-21-2025 Basophils (Bld) [#/Vol] 0.0 10*3/uL Normal 0.0-0.2 [facility] Comment on above: Result Comment: PERF ORMED BY: [facility] [address] [place] [address] PATHOLOGIST C[employer]ILEVER CRANE OPERATOR MARIAM WANG M.D. Performed By: #### C MP, MG, CBC #### [facility] [address] [place] [address] [place] Basophils/100 WBC (Bld) 0.4 % Normal . [facility] Comment on above: Performed By: #### C MP, MG, CBC #### [facility] [address] Eosinophils (Bld) [#/Vol] 0.1 10*3/uL Normal 0.0-0.45 [facility] Comment on above: Performed By: #### C MP, MG, CBC #### [address] Eosinophils/100 WBC (Bld) 1.8 % Normal . [facility] Comment on above: Performed By: #### C MP, MG, CBC #### [address] Erythrocyte distribution width (RBC) [Ratio] 13.9 % Normal 12.0-14.8 [facility] Comment on above: Performed By: #### C MP, MG, CBC #### [address] Hematocrit (Bld) [Volume fraction] 34.5 % Low 38.8-50.0 [facility] Comment on above: Performed By: #### C MP, MG, CBC #### [address] Hemoglobin (Bld) [Mass/Vol] 12.1 g/dL Low 13.0-17.0 [facility] Comment on above: Performed By: #### C MP, MG, CBC #### [place] [address] [place] Lymphocytes (Bld) [#/Vol] 0.9 10*3/uL Low 1.00-4.8 [facility] Comment on above: Performed By: #### C MP, MG, CBC #### [place] [address] [place] Lymphocytes/100 WBC (Bld) 13.4 % Normal . [facility] Comment on above: Performed By: #### C MP, MG, CBC #### [address] MCH (RBC) [Entitic mass] 31.9 pg Normal 27.5-35.2 [facility] Comment on above: Performed By: #### C MP, MG, CBC #### [address] MCV (RBC) [Entitic vol] 91.1 fL Normal 83.5-101 [facility] Comment on above: Performed By: #### C MP, MG, CBC #### [address] Mean Corpuscular HGB Conc 35.0 g/dL Normal 32.5-35.6 [facility] Comment on above: Performed By: #### C MP, MG, CBC #### [address] Monocytes (Bld) [#/Vol] 0.5 10*3/uL Normal 0.0-0.8 [facility] Comment on above: Performed By: #### C MP, MG, CBC #### [address] Monocytes/100 WBC (Bld) 7.1 % Normal . [facility] Comment on above: Performed By: #### C MP, MG, CBC #### [address] Neutrophils (Bld) [#/Vol] 5.0 10*3/uL Normal 1.8-7.7 [facility] Comment on above: Performed By: #### C MP, MG, CBC #### [address] Neutrophils/100 WBC (Bld) 77.3 % Normal . [facility] Comment on above: Performed By: #### C MP, MG, CBC #### [address] NRBC% 0.1 /100{WBC} Normal 0-0.5 The [facility] Comment on above: Performed By: #### C MP, MG, CBC #### [address] Platelet mean volume (Bld) [Entitic vol] 8.9 fL Normal 6.6-10.1 The [facility] Comment on above: Performed By: #### C MP, MG, CBC #### [address] Platelets (Bld) [#/Vol] 136 10*3/uL Low 150-450 [facility] Comment on above: Performed By: #### C MP, MG, CBC #### [address] RBC (Bld) [#/Vol] 3.79 10*6/uL Low 3.90-5.60 The [facility] Comment on above: Performed By: #### C MP, MG, CBC #### [address] WBC (Bld) [#/Vol] 6.5 10*3/uL Normal 4.1-10.5 The Count includes the [facility] Comment on above: Performed By: #### C MP, MG, CBC #### [address] White Blood Count 6.5 [CFU]/mL Normal 4.1-10.5 [facility] Comment on above: Performed By: #### C MP, MG, CBC #### [address] Comprehensive Metabolic Pane patricio 07-21-2025 Albumin [Mass/Vol] 3.4 g/dL Low 3.5-5.7 The Count includes the [facility] Comment on above: Performed By: #### C MP, MG, CBC #### [address] Albumin/Globulin [Mass ratio] 1.4 {ratio} Normal [facility] Comment on above: Performed By: #### C MP, MG, CBC #### [address] ALP [Catalytic activity/Vol] 62 U/L Normal 34-104 [facility] Comment on above: Performed By: #### C MP, MG, CBC #### [facility] [address] ALT [Catalytic activity/Vol] 10 U/L Normal 7-52 [facility] Comment on above: Performed By: #### C MP, MG, CBC #### [facility] [address] Anion gap [Moles/Vol] 7.7 mmol/L Normal 6.0-15.0 [facility] Comment on above: Performed By: #### C MP, MG, CBC #### [facility] [address] AST [Catalytic activity/Vol] 14 U/L Normal 13-39 [facility] Comment on above: Performed By: #### C MP, MG, CBC #### [address] Bilirubin [Mass/Vol] 1.1 mg/dL High 0.3-1.0 [facility] Comment on above: Performed By: #### C MP, MG, CBC #### [facility] [address] [place] [address] [place] Calcium [Mass/Vol] 8.4 mg/dL Low 8.6-10.3 The Count includes the [facility] Comment on above: Performed By: #### C MP, MG, CBC #### [facility] [address] [place] [address] [place] Chloride [Moles/Vol] 102 mmol/L Normal 98-107 [facility] Comment on above: Performed By: #### C MP, MG, CBC #### [facility] [address] [place] [address] [place] CO2 [Moles/Vol] 26.2 mmol/L Normal 21.0-31.0 The [facility] Comment on above: Performed By: #### C MP, MG, CBC #### [facility] [address] [place] [address] [place] Creatinine [Mass/Vol] 0.88 mg/dL Normal 0.70-1.30 [facility] Comment on above: Performed By: #### C MP, MG, CBC #### [address] Creatinine Clr Calc Pharmacy 67.74 Normal [facility] Comment on above: Performed By: #### C MP, MG, CBC #### [place] [address] [place] GFR/1.73 sq M.predicted MDRD (S/P/Bld) [Vol rate/Area] mL/min/{1.73_m2} Normal [facility] Comment on above: Performed By: #### C MP, MG, CBC #### [address] Globulin (S) [Mass/Vol] 2.5 g/dL Normal [facility] Comment on above: Performed By: #### C MP, MG, CBC #### [address] Glucose [Mass/Vol] 92 mg/dL Normal 70-100 The Count includes the [facility] Comment on above: Result Comment: [facility] Glucose Reference Range is dependent on time and content of last meal. Glucose of more than 200 mg/dL in a nonstressed, ambulatory subject supports the diagnosis of Diabetes Mellitus. ADA recommended reference range Performed By: #### C MP, MG, CBC #### [address] Potassium [Moles/Vol] 3.9 mmol/L Normal 3.5-5.1 [facility] Comment on above: Performed By: #### C MP, MG, CBC #### [address] Protein [Mass/Vol] 5.9 g/dL Low 6.4-8.9 The Count includes the [facility] Comment on above: Performed By: #### C MP, MG, CBC #### [address] Sodium [Moles/Vol] 132 mmol/L Low 136-145 The Count includes the [facility] Comment on above: Performed By: #### C MP, MG, CBC #### [address] Urea nitrogen [Mass/Vol] 12 mg/dL Normal 7-25 [facility] Comment on above: Performed By: #### C MP, MG, CBC #### [address] Glucose Poct Glucometerson 0 07-21-2025 Glucose [Mass/Vol] 70 mg/dL Normal [facility] Comment on above: Result Comment: [place] Glucose Reference Range is dependent on time and content of last meal. Glucose of more than 200 mg/dL in a nonstressed, ambulatory subject supports the diagnosis of Diabetes Mellitus. PERFORMED BY: [place] [address] PATHOLOGIST C[employer]ILEVER CRANE OPERATOR MARIAM WANG M.D. Performed By: #### C DT #### [address] Glucose [Mass/Vol] 131 mg/dL Normal The Count includes the [facility] Comment on above: Result Comment: [place] Glucose Reference Range is dependent on time and content of last meal. Glucose of more than 200 mg/dL in a nonstressed, ambulatory subject supports the diagnosis of Diabetes Mellitus. PERFORMED BY: [place] [address] PATHOLOGIST CANTILEVER CRANE OPERATOR MARIAM WANG M.D. Performed By: #### V ANCP #### [address] Glucose [Mass/Vol] 152 mg/dL Normal The Count includes the [facility] Comment on above: Result Comment: [place] Glucose Reference Range is dependent on time and content of last meal. Glucose of more than 200 mg/dL in a nonstressed, ambulatory subject supports the diagnosis of Diabetes Mellitus. PERFORMED BY: [place] [address] PATHOLOGIST C[employer]ILEVER CRANE OPERATOR MARIAM WANG M.D. Performed By: #### G LULS #### Point of Care testing , Glucose [Mass/Vol] 89 mg/dL Normal The Count includes the [facility] Comment on above: Result Comment: [facility] Glucose Reference Range is dependent on time and content of last meal. Glucose of more than 200 mg/dL in a nonstressed, ambulatory subject supports the diagnosis of Diabetes Mellitus. PERFORMED BY: [place] [address] PATHOLOGIST CANTILEVER CRANE OPERATOR MARIAM WANG M.D. Performed By: #### G LULS #### Point of Care testing , Magnesiumon 07-21-2025 Magnesium [Mass/Vol] 1.9 mg/dL Normal 1.9-2.7 [facility] Comment on above: Result Comment: PERF ORMED BY: [place] [address] PATHOLOGIST CANTILEVER CRANE OPERATOR MARIAM WANG M.D. Performed By: #### C MP, MG, CBC #### [facility] [address] [place] [address] Vancomycin,Peakon 07-21-2025 Vancomycin,Peak 23.0 Normal 20.0-40.0 [facility] Comment on above: Order Comment: > or = to 3 loose/watery stools in the last 24 HRS? Y Is patient on promotility agents or tube feeding? N Result Comment: Last dose: - PERFORMED BY: [place] [address] PATHOLOGIST CANTILEVER CRANE OPERATOR MARIAM WANG M.D. Performed By: #### C DT #### [facility] [address] [place] [address] Vancomycin,Peak 18.4 Low 20.0-40.0 [facility] Comment on above: Order Comment: Comme nt ?DRAW 1 HOUR AFTER INFUSION COMPLETES Date of last dose?: [id number] Time of last dose?: 0200 Result Comment: Last dose: - PERFORMED BY: [place] [address] PATHOLOGIST CANTILEVER CRANE OPERATOR MARIAM WANG M.D. Performed By: #### V ANCP #### [facility] [address] [place] [address] C-Reactive Proteinon 025 C-Reactive Protein 11.5 mg/dL High 0.0-0.5 The Count includes the [facility] Comment on above: Result Comment: PERF ORMED BY: [place] [address] PATHOLOGIST CANTILEVER CRANE OPERATOR MARIAM WANG M.D. Performed By: #### V ANCP #### [address] Clostridium Difficileon Clostridium Difficile Negative Normal Negative [facility] Comment on above: Order Comment: > or = to 3 loose/watery stools in the last 24 HRS? Y Is patient on promotility agents or tube feeding? N Result Comment: Test ing performed by RT-PCR PERFORMED BY: [place] [address] PATHOLOGIST CANTILEVER CRANE OPERATOR MARIAM WANG M.D. Performed By: #### C DT #### [address] Coagulation Profileon 2024 aPTT Coag (Bld) [Time] 34.7 s Normal 25.1-36.5 [facility] Comment on above: Result Comment: A he matocrit value greater than 55% may lead to inaccurate results in coagulation testing. Patients having hematocrit values >55% require a special collection tube for coagulation studies. Please contact the laboratory at [phone] for redraw instructions. PERFORMED BY: [place] [address] PATHOLOGIST CANTILEVER CRANE OPERATOR MARIAM WANG M.D. Performed By: #### V ANCP #### [address] INR Coag (PPP) [Relative time] 1.5 {INR} Normal [facility] Comment on above: Result [...] 4.5 Performed By: #### V ANCP #### [address] PT Coag (PPP) [Time] 16.6 s High 9.0-12.9 [facility] Comment on above: Result Comment: A he matocrit value greater than 55% may lead to inaccurate results in coagulation testing. Patients having hematocrit values >55% require a special collection tube for coagulation studies. Please contact the laboratory at [phone] for redraw instructions. Performed By: #### V ANCP #### [address] Complete Blood Count Auto Di ffon 07-20-2025 Basophils (Bld) [#/Vol] 0.0 10*3/uL Normal 0.0-0.2 [facility] Comment on above: Performed By: #### V ANCP #### [address] Basophils/100 WBC (Bld) 0.3 % Normal . [facility] Comment on above: Performed By: #### V ANCP #### [address] Eosinophils (Bld) [#/Vol] 0.0 10*3/uL Normal 0.0-0.45 [facility] Comment on above: Performed By: #### V ANCP #### [address] Eosinophils/100 WBC (Bld) 0.3 % Normal . [facility] Comment on above: Performed By: #### V ANCP #### [address] Erythrocyte distribution width (RBC) [Ratio] 13.9 % Normal 12.0-14.8 [facility] Comment on above: Performed By: #### V ANCP #### [address] Hematocrit (Bld) [Volume fraction] 36.3 % Low 38.8-50.0 [facility] Comment on above: Performed By: #### V ANCP #### [address] Hemoglobin (Bld) [Mass/Vol] 12.6 g/dL Low 13.0-17.0 [facility] Comment on above: Performed By: #### V ANCP #### [address] Lymphocytes (Bld) [#/Vol] 0.9 10*3/uL Low 1.00-4.8 [facility] Comment on above: Performed By: #### V ANCP #### [address] Lymphocytes/100 WBC (Bld) 9.4 % Normal . [facility] Comment on above: Performed By: #### V ANCP #### [address] MCH (RBC) [Entitic mass] 31.9 pg Normal 27.5-35.2 [facility] Comment on above: Performed By: #### V ANCP #### [address] MCV (RBC) [Entitic vol] 91.8 fL Normal 83.5-101 [facility] Comment on above: Performed By: #### V ANCP #### [address] Mean Corpuscular HGB Conc 34.8 g/dL Normal 32.5-35.6 [facility] Comment on above: Performed By: #### V ANCP #### [address] Monocytes (Bld) [#/Vol] 0.5 10*3/uL Normal 0.0-0.8 [facility] Comment on above: Performed By: #### V ANCP #### [address] Monocytes/100 WBC (Bld) 5.6 % Normal . [facility] Comment on above: Performed By: #### V ANCP #### [facility] [address] [place] [address] [place] Neutrophils (Bld) [#/Vol] 7.9 10*3/uL High 1.8-7.7 [facility] Comment on above: Performed By: #### V ANCP #### [facility] [address] [place] [address] [place] Neutrophils/100 WBC (Bld) 84.4 % Normal . [facility] Comment on above: Performed By: #### V ANCP #### [facility] [address] [place] [address] [place] NRBC% 0.1 /100{WBC} Normal 0-0.5 [facility] Comment on above: Performed By: #### V ANCP #### [facility] [address] [place] [address] [place] Platelet mean volume (Bld) [Entitic vol] 9.3 fL Normal 6.6-10.1 [facility] Comment on above: Performed By: #### V ANCP #### [facility] [address] [place] [id number] [place] Platelets (Bld) [#/Vol] 138 10*3/uL Low 150-450 [facility] Comment on above: Performed By: #### V ANCP #### [facility] [address] [place] [id number] [place] RBC (Bld) [#/Vol] 3.96 10*6/uL Normal 3.90-5.60 [facility] Comment on above: Performed By: #### V ANCP #### [facility] [address] [place] [id number] [place] WBC (Bld) [#/Vol] 9.3 10*3/uL Normal 4.1-10.5 [facility] Comment on above: Performed By: #### V ANCP #### [facility] [address] [place] [id number] [place] White Blood Count 9.3 [CFU]/mL Normal 4.1-10.5 [facility] Comment on above: Performed By: #### V ANCP #### [address] Comprehensive Metabolic Pane patricio 07-20-2025 Albumin [Mass/Vol] 3.6 g/dL Normal 3.5-5.7 The Count includes the [facility] Comment on above: Performed By: #### V ANCP #### [place] [id number] [facility] Albumin/Globulin [Mass ratio] 1.6 {ratio} Normal [facility] Comment on above: Performed By: #### V ANCP #### [address] ALP [Catalytic activity/Vol] 69 U/L Normal 34-104 [facility] Comment on above: Performed By: #### V ANCP #### [address] ALT [Catalytic activity/Vol] 12 U/L Normal 7-52 [facility] Comment on above: Performed By: #### V ANCP #### [address] Anion gap [Moles/Vol] 10.3 mmol/L Normal 6.0-15.0 [facility] Comment on above: Performed By: #### V ANCP #### [address] AST [Catalytic activity/Vol] 17 U/L Normal 13-39 [facility] Comment on above: Performed By: #### V ANCP #### [address] Bilirubin [Mass/Vol] 1.5 mg/dL High 0.3-1.0 [facility] Comment on above: Result Comment: Samp les from patients who have taken Naproxen have shown spurious elevation in Total Bilirubin levels. A metabolite of Naproxen, O-desmethylnaproxen, has been shown to interfere with the Jendrindiaik-Growilber method for measuring Total Bilirubin. Performed By: #### V ANCP #### [address] Calcium [Mass/Vol] 8.7 mg/dL Normal 8.6-10.3 The Count includes the [facility] Comment on above: Performed By: #### V ANCP #### [address] Chloride [Moles/Vol] 100 mmol/L Normal 98-107 [facility] Comment on above: Performed By: #### V ANCP #### [address] CO2 [Moles/Vol] 27.2 mmol/L Normal 21.0-31.0 [facility] Comment on above: Performed By: #### V ANCP #### [address] Creatinine [Mass/Vol] 0.88 mg/dL Normal 0.70-1.30 [facility] Comment on above: Performed By: #### V ANCP #### [address] Creatinine Clr Calc Pharmacy 67.65 Normal [facility] Comment on above: Performed By: #### V ANCP #### [address] GFR/1.73 sq M.predicted MDRD (S/P/Bld) [Vol rate/Area] mL/min/{1.73_m2} Normal [facility] Comment on above: Performed By: #### V ANCP #### [address] Globulin (S) [Mass/Vol] 2.3 g/dL Normal [facility] Comment on above: Performed By: #### V ANCP #### [address] Glucose [Mass/Vol] 115 mg/dL High 70-100 The Count includes the [facility] Comment on above: Result Comment: [place] Glucose Reference Range is dependent on time and content of last meal. Glucose of more than 200 mg/dL in a nonstressed, ambulatory subject supports the diagnosis of Diabetes Mellitus. ADA recommended reference range Performed By: #### V ANCP #### [address] Potassium [Moles/Vol] 4.5 mmol/L Normal 3.5-5.1 [facility] Comment on above: Performed By: #### V ANCP #### [address] Protein [Mass/Vol] 5.9 g/dL Low 6.4-8.9 The Count includes the [facility] Comment on above: Performed By: #### V ANCP #### [address] Sodium [Moles/Vol] 133 mmol/L Low 136-145 The Count includes the [facility] Comment on above: Performed By: #### V ANCP #### [address] Urea nitrogen [Mass/Vol] 11 mg/dL Normal 7-25 [facility] Comment on above: Performed By: #### V ANCP #### [address] [facility] echo transthoracicon ECH echo transthoracic [facility] [place] [address] [place] [address] Echocardiogram Signed Patient: Dariel Zabala MR#: [id number] 9 : 1940 Acct:[id number] Age/Sex: 85 / M ADM Date: 07/19/25 Loc: Room: [address] [place] [address] Type: ADM IN Attending Dr: Thalia Cervantes [...] -------+- (more content not included)... Normal [facility] Erythrocyte Sedimentation Ra lisa 07-20-2025 ESR (Bld) [Velocity] 16 mm/h Normal 0-19 [facility] Comment on above: Result Comment: PERF ORMED BY: [facility] [address] [place] [address] PATHOLOGIST [employer]ILE[employer] CR[employer] OPERATOR MARIAM WANG M.D. Performed By: #### G LULS #### Point of Care testing , Glucose Poct Glucometerson 0 07-20-2025 Glucose [Mass/Vol] 171 mg/dL Normal The Count includes the [facility] [facility] Comment on above: Result Comment: [facility] Glucose Reference Range is dependent on time and content of last meal. Glucose of more than 200 mg/dL in a nonstressed, ambulatory subject supports the diagnosis of Diabetes Mellitus. PERFORMED BY: [facility] [address] [place] [address] PATHOLOGIST CANTILEVER CRANE OPERATOR MARIAM WANG M.D. Performed By: #### G LULS #### Point of Care testing , Glucose [Mass/Vol] 81 mg/dL Normal The Count includes the [facility] Comment on above: Result Comment: [place] [facility] Glucose Reference Range is dependent on time and content of last meal. Glucose of more than 200 mg/dL in a nonstressed, ambulatory subject supports the diagnosis of Diabetes Mellitus. PERFORMED BY: [place] [phone] PATHOLOGIST CANTILEVER CRANE OPERATOR MARIAM WANG M.D. Performed By: #### V ANCP #### [address] Glucose [Mass/Vol] 184 mg/dL Normal The Count includes the [facility] Comment on above: Result Comment: [place] [facility] Glucose Reference Range is dependent on time and content of last meal. Glucose of more than 200 mg/dL in a nonstressed, ambulatory subject supports the diagnosis of Diabetes Mellitus. PERFORMED BY: [place] [address] PATHOLOGIST CANTILEVER CRANE OPERATOR MARIAM WANG M.D. Performed By: #### V ANCP #### [address] Glucose [Mass/Vol] 115 mg/dL Normal The Count includes the [facility] Comment on above: Result Comment: [place] [facility] Glucose Reference Range is dependent on time and content of last meal. Glucose of more than 200 mg/dL in a nonstressed, ambulatory subject supports the diagnosis of Diabetes Mellitus. PERFORMED BY: [place] [address] PATHOLOGIST CANTILEVER CRANE OPERATOR MARIAM WANG M.D. Performed By: #### V ANCP #### [address] Magnesiumon 07-20-2025 Magnesium [Mass/Vol] 1.7 mg/dL Low 1.9-2.7 [facility] Comment on above: Performed By: #### V ANCP #### [place] [id number] [facility] A1C with Estimated Average G renee 07-19-2025 Glucose [Mass/Vol] 131 mg/dL Normal The Count includes the [facility] Comment on above: Result Comment: PERF ORMED BY: [place] [address] PATHOLOGIST CANTILEVER CRANE OPERATOR MARIAM WANG M.D. Performed By: #### V ANCP #### [address] HbA1c (Bld) [Mass fraction] 6.2 % High 4.3-5.6 [facility] Comment on above: Result Comment: Incr eased risk for diabetes: 5.7 - 6.4 diabetes: >6.4 glycemic control for adults with diabetes: <7.0 Performed By: #### V ANCP #### [address] Glucose Poct Glucometerson 0 07-19-2025 Glucose [Mass/Vol] 112 mg/dL Normal The Count includes the [facility] Comment on above: Result Comment: [place] Glucose Reference Range is dependent on time and content of last meal. Glucose of more than 200 mg/dL in a nonstressed, ambulatory subject supports the diagnosis of Diabetes Mellitus. PERFORMED BY: [place] [id number] PATHOLOGIST CANTILEVER CRANE OPERATOR MARIAM WANG M.D. Performed By: #### G LULS #### Point of Care testing , [facility] 07-17-20 [facility] Case Information Case Priority: None Programs: -- Referral Source: Oil Extractor Referral Reason: Care coordination Case Type: Transition Care Management Risk Score: -- Case Status: Enrolled (July 08, 2025) Date Assigned: July 05, 2025 Assigned By: Alce Rodrigez Date Enrolled: July 08, 2025 Assigned [...] (min): 7 Outcome: Case discussion Contact Type: call center coordinator Contact Name: Ania Crews Notes: See [...] return call. Created By: Alec Rodrigez Normal [facility] Sodiumon 07-12-2025 Sodium [Moles/Vol] 131 mmol/L Low 135-145 [facility] Comment on above: Performed By: #### 2 [id number] #### [facility] [address] [place] [address] Ambulatory Visit Summaryon 0 07-11-2025 Ambulatory Visit [...] AM EDT With: YANIQUE MCNEILL CNP Where: [place] [id number] 8:00 AM EDT With: Where: [address] [phone]- Medications What How Much When Why Instructions [...] disease BMI 23.0-23.9, adult Nonsmoker Natural Lemon [place] flavor Contact prescribing physician if questions or [...] for Prop (more content not included)... Normal [facility] Family Medicine Office/Clini c Noteon 07-11-2025 Family Medicine Office/Clinic Note Family Medicine Office/Clinic Note Chief Complaint TCM visit The patient presents for medication management and sodium level evaluation. HPI Staff Pt presents today for TCM visit. Hospital: [facility] Admission date: 06/17/25 Discharge date: 06/23/25 Symptoms the patient presented with: CVA & Low Sodium Current concerns: Concerned with medications. History of Present Illness 85-year-old male presenting with his for a TCM appointment following discharge from the [facility]. He is here for sodium level evaluation [...] qualifying data available Patient Education Stroke Prevention, [id number] Problem List/Past Medical History Ongoing ASCVD (arteriosclerotic [...] mg Cap-DR, (more content not included)... Normal [facility] Comment on above: Result Comment: Elec tronically Signed By: YANIQUE MCNEILL CNP\.br\Date and Time Signed: 07/11/25 15:05 EDT [facility] 07-08-20 [facility] Case Information Case Priority: None Programs: -- Referral Source: Oil Extractor Referral Reason: Care coordination Case Type: Transition [...] to bed at 2100, get up around [id number], sleep through the night Are you having [...] TCM follow up. 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 [...] good.' (more content not included)... Normal [facility] Family Medicine Office/Clini c Noteon [...] and is currently under transitional care. A personal care aid is expected to contact the patient to [...] No qualifying data available Patient Education Hyponatremia, [id number] Problem List/Past Medical History Ongoing ASCVD (arteriosclerotic [...] inactivated 08/02/2014 Recorded Normal [facility] Comment on above: Result Comment: Elec tronically Signed By: YANIQUE MCNEILL CNP\.br\Date and Time Signed: 07/04/25 14:55 EDT Basic Metabolic Panelon 06-14 Anion gap [Moles/Vol] 7 mmol/L 5 - 15 mmol/L [facility] Calcium [Mass/Vol] 9.9 mg/dL 8.5 - 10. 5 mg/dL [facility] Chloride [Moles/Vol] 95 mmol/L Low 98 - 10 9 mmol/L [facility] CO2 [Moles/Vol] 31 mmol/L 22 - 32 mmol/L [facility] Creatinine [Mass/Vol] 0.8 mg/dL 0.60 - 1.30 mg/dL [facility] Comment on above: METHOD TRACEABLE TO IDMS STANDARD EGFR Non-Race Dependent 88 - PINF [facility] Comment on above: Reported eGFR is bas ed on the CKD-EPI 2020 equation that does not use a race coefficient. Glucose [Mass/Vol] 101 mg/dL High 65 - 99 mg/dL [facility] Potassium [Moles/Vol] 4.5 mmol/L 3.5 - 5.0 mmol/L [facility] Sodium [Moles/Vol] 133 mmol/L Low 134 - 146 mmol/L [facility] Urea nitrogen [Mass/Vol] 29 mg/dL High 5 - 27 mg/dL [facility] CBC auto differentialon 06-14 Basophils (Bld) [#/Vol] 0.1 10*3/uL 0.0 - 0.2 10*3/uL [facility] Basophils/100 WBC (Bld) 1.5 % [facility] Differential cell count method Nom (Bld) AUTOMATED DIFFERENTIAL [facility] Eosinophils (Bld) [#/Vol] 0.1 10*3/uL 0.0 - 0.4 10*3/uL [facility] Eosinophils/100 WBC (Bld) 3 % [facility] Erythrocyte distribution width (RBC) [Ratio] 13.8 % 11.5 - 15 % [facility] Hematocrit (Bld) [Volume fraction] 40 % 39 - 50 % [facility] Hemoglobin (Bld) [Mass/Vol] 13.8 g/dL 13 - 17 g/dL [facility] Lymphocytes (Bld) [#/Vol] 1.5 10*3/uL 1.0 - 3.5 10*3/uL [facility] Lymphocytes/100 WBC (Bld) 34.7 % [facility] MCH (RBC) [Entitic mass] 31.3 pg 27 - 34 pg [facility] MCHC (RBC) [Mass/Vol] 34.5 g/dL 32 - 3 6 g/dL [facility] MCV (RBC) [Entitic vol] 91 fL 80 - 100 fL [facility] Monocytes (Bld) [#/Vol] 0.4 10*3/uL 0.0 - 0.9 10*3/uL [facility] Monocytes/100 WBC (Bld) 10.2 % [facility] Neutrophils (Bld) [#/Vol] 2.1 10*3/uL 1.5 - 6.6 10*3/uL [facility] Neutrophils/100 WBC (Bld) 50.6 % [facility] Platelet mean volume (Bld) [Entitic vol] 9.5 fL 7 - 12 fL [facility] Platelets (Bld) [#/Vol] 234 10*3/uL [facility] RBC (Bld) [#/Vol] 4.4 10*6/uL [facility] WBC LM Ql (Sput) 4.2 [facility] ECG 12 Leadon 06-23-2025 TRACEMASTERVUE [facility] Electrolyte panelon 06-23-20 25 Anion gap [Moles/Vol] 10 mmol/L 5 - 15 mmol/L [facility] Chloride [Moles/Vol] 96 mmol/L Low 98 - 10 9 mmol/L [facility] CO2 [Moles/Vol] 27 mmol/L 22 - 32 mmol/L [facility] Interpretation and review of laboratory results Abnormal [facility] Potassium [Moles/Vol] 4.2 mmol/L 3.5 - 5.0 mmol/L [facility] Sodium [Moles/Vol] 133 mmol/L Low 134 - 146 mmol/L [facility] Ionized calciumon 06-23-2025 Calcium.ionized ISE [Moles/Vol] 5.1 mg/dL 4.5 - 5.3 mg/dL [facility] Interpretation and review of laboratory results Normal [facility] Magnesiumon 06-23-2025 Magnesium [Mass/Vol] 1.6 mg/dL Low 1.8 - 2 .6 mg/dL [facility] No Panel Informationon 06-23 Interpretation and review of laboratory results Abnormal [facility] Phosphoruson 06-23-2025 Interpretation and review of laboratory results Normal [facility] Phosphate [Mass/Vol] 3.5 mg/dL 2.4 - 4 .9 mg/dL [facility] Protime & INROrdered By: Lucy Branham on 06-23-2025 INR Coag (Platelet poor plasma or blood) [Relative time] 2.8 High 0.9 - 1.2 [facility] Interpretation and review of laboratory results Abnormal [facility] PT Coag (PPP) [Time] 32.1 s High [facility] Anti XA unfractionated hepar inOrdered By: Mindy Conklin on 06-22-2025 Heparin unfractionated Chromogenic method Qn (PPP) 0.56 [facility] Comment on above: Optimal time for raimundo ting is 6 hrs post dosage This test is specific for monitoring patients on UFH, and is not recommended for use with other Anti-Xa medications. Interpretation and review of laboratory results Normal [facility] Basic Metabolic Panelon Anion gap [Moles/Vol] 8 mmol/L 5 - 15 mmol/L [facility] Calcium [Mass/Vol] 9.1 mg/dL 8.5 - 10. 5 mg/dL [facility] Chloride [Moles/Vol] 93 mmol/L Low 98 - 10 9 mmol/L [facility] CO2 [Moles/Vol] 26 mmol/L 22 - 32 mmol/L [facility] Creatinine [Mass/Vol] 0.76 mg/dL 0.60 - 1.30 mg/dL [facility] Comment on above: METHOD TRACEABLE TO IDMD STANDARD EGFR Non-Race Dependent 89 - PINF [facility] Comment on above: Reported eGFR is bas ed on the CKD-EPI 2020 equation that does not use a race coefficient. Glucose [Mass/Vol] 135 mg/dL High 65 - 99 mg/dL [facility] Interpretation and review of laboratory results Abnormal [facility] Potassium [Moles/Vol] 4.3 mmol/L 3.5 - 5.0 mmol/L [facility] Sodium [Moles/Vol] 127 mmol/L Low 134 - 146 mmol/L [facility] Urea nitrogen [Mass/Vol] 35 mg/dL High 5 - 27 mg/dL [facility] CBC auto differentialon Basophils (Bld) [#/Vol] 0.1 10*3/uL 0.0 - 0.2 10*3/uL [facility] Basophils/100 WBC (Bld) 1.3 % [facility] Differential cell count method Nom (Bld) AUTOMATED DIFFERENTIAL [facility] Eosinophils (Bld) [#/Vol] 0.1 10*3/uL 0.0 - 0.4 10*3/uL [facility] Eosinophils/100 WBC (Bld) 2 % [facility] Erythrocyte distribution width (RBC) [Ratio] 13.5 % 11.5 - 15 % [facility] Hematocrit (Bld) [Volume fraction] 36.3 % Low 39 - 50 % [facility] Hemoglobin (Bld) [Mass/Vol] 12.5 g/dL Low 13 - 17 g/dL [facility] Interpretation and review of laboratory results Abnormal [facility] Lymphocytes (Bld) [#/Vol] 1.5 10*3/uL 1.0 - 3.5 10*3/uL [facility] Lymphocytes/100 WBC (Bld) 26.9 % [facility] MCH (RBC) [Entitic mass] 31.2 pg 27 - 34 pg [facility] MCHC (RBC) [Mass/Vol] 34.4 g/dL 32 - 3 6 g/dL [facility] MCV (RBC) [Entitic vol] 91 fL 80 - 100 fL [facility] Monocytes (Bld) [#/Vol] 0.7 10*3/uL 0.0 - 0.9 10*3/uL [facility] Monocytes/100 WBC (Bld) 12.2 % [facility] Neutrophils (Bld) [#/Vol] 3.3 10*3/uL 1.5 - 6.6 10*3/uL [facility] Neutrophils/100 WBC (Bld) 57.6 % [facility] Platelet mean volume (Bld) [Entitic vol] 9.8 fL 7 - 12 fL [facility] Platelets (Bld) [#/Vol] 212 10*3/uL [facility] RBC (Bld) [#/Vol] 4 10*6/uL Low [facility] WBC LM Ql (Sput) 5.6 [facility] Electrolyte panelon 06-22-20 25 Anion gap [Moles/Vol] 8 mmol/L 5 - 15 mmol/L [facility] Chloride [Moles/Vol] 93 mmol/L Low 98 - 10 9 mmol/L [facility] CO2 [Moles/Vol] 28 mmol/L 22 - 32 mmol/L [facility] Interpretation and review of laboratory results Abnormal [facility] Potassium [Moles/Vol] 4.4 mmol/L 3.5 - 5.0 mmol/L [facility] Sodium [Moles/Vol] 129 mmol/L Low 134 - 146 mmol/L [facility] Anion gap [Moles/Vol] 7 mmol/L 5 - 15 mmol/L [facility] Chloride [Moles/Vol] 94 mmol/L Low 98 - 10 9 mmol/L [facility] CO2 [Moles/Vol] 28 mmol/L 22 - 32 mmol/L [facility] Interpretation and review of laboratory results Abnormal [facility] Potassium [Moles/Vol] 4.4 mmol/L 3.5 - 5.0 mmol/L [facility] Sodium [Moles/Vol] 129 mmol/L Low 134 - 146 mmol/L [facility] Lavender Topon 06-22-2025 Extra Tube Auto Resulted [facility] No Panel Informationon 06-22 [facility] Protime & INRon 06-22-2025 INR Coag (Platelet poor plasma or blood) [Relative time] 1.8 High 0.9 - 1.2 [facility] Interpretation and review of laboratory results Abnormal [facility] PT Coag (PPP) [Time] 19.9 s High [facility] Anti XA unfractionated hepar inon 06-21-2025 Heparin unfractionated Chromogenic method Qn (PPP) 0.37 [facility] Comment on above: Optimal time for raimundo ting is 6 hrs post dosage This test is specific for monitoring patients on UFH, and is not recommended for use with other Anti-Xa medications. Interpretation and review of laboratory results Normal [facility] Heparin unfractionated Chromogenic method Qn (PPP) 0.65 [facility] Comment on above: Optimal time for raimundo ting is 6 hrs post dosage This test is specific for monitoring patients on UFH, and is not recommended for use with other Anti-Xa medications. Interpretation and review of laboratory results Normal [facility] Basic Metabolic Panelon Anion gap [Moles/Vol] 9 mmol/L 5 - 15 mmol/L [facility] Calcium [Mass/Vol] 9 mg/dL 8.5 - 10. 5 mg/dL [facility] Chloride [Moles/Vol] 93 mmol/L Low 98 - 10 9 mmol/L [facility] CO2 [Moles/Vol] 25 mmol/L 22 - 32 mmol/L [facility] Creatinine [Mass/Vol] 0.72 mg/dL 0.60 - 1.30 mg/dL [facility] Comment on above: METHOD TRACEABLE TO IDMD STANDARD EGFR Non-Race Dependent - PINF [facility] Comment on above: Reported eGFR is bas ed on the CKD-EPI 2020 equation that does not use a race coefficient. Glucose [Mass/Vol] 121 mg/dL High 65 - 99 mg/dL [facility] Interpretation and review of laboratory results Abnormal [facility] Potassium [Moles/Vol] 4.5 mmol/L 3.5 - 5.0 mmol/L [facility] Sodium [Moles/Vol] 127 mmol/L Low 134 - 146 mmol/L [facility] Urea nitrogen [Mass/Vol] 25 mg/dL 5 - 27 mg/dL [facility] C-reactive proteinon 025 CRP [Mass/Vol] 8.9 mg/dL High NINF - 0.7 mg/dL [facility] Interpretation and review of laboratory results Abnormal [facility] CBC auto differentialon Basophils (Bld) [#/Vol] 0.1 10*3/uL 0.0 - 0.2 10*3/uL [facility] Basophils/100 WBC (Bld) 1.1 % [facility] Differential cell count method Nom (Bld) AUTOMATED DIFFERENTIAL [facility] Eosinophils (Bld) [#/Vol] 0 10*3/uL 0.0 - 0.4 10*3/uL [facility] Eosinophils/100 WBC (Bld) 0.9 % [facility] Erythrocyte distribution width (RBC) [Ratio] 13.8 % 11.5 - 15 % [facility] Hematocrit (Bld) [Volume fraction] 40.7 % 39 - 50 % [facility] Hemoglobin (Bld) [Mass/Vol] 14.1 g/dL 13 - 17 g/dL [facility] Lymphocytes (Bld) [#/Vol] 1.5 10*3/uL 1.0 - 3.5 10*3/uL [facility] Lymphocytes/100 WBC (Bld) 28.5 % [facility] MCH (RBC) [Entitic mass] 30.9 pg 27 - 34 pg [facility] MCHC (RBC) [Mass/Vol] 34.7 g/dL 32 - 3 6 g/dL [facility] MCV (RBC) [Entitic vol] 89 fL 80 - 100 fL [facility] Monocytes (Bld) [#/Vol] 0.6 10*3/uL 0.0 - 0.9 10*3/uL [facility] Monocytes/100 WBC (Bld) 12 % [facility] Neutrophils (Bld) [#/Vol] 3 10*3/uL 1.5 - 6.6 10*3/uL [facility] Neutrophils/100 WBC (Bld) 57.5 % [facility] Platelet mean volume (Bld) [Entitic vol] 9.7 fL 7 - 12 fL [facility] Platelets (Bld) [#/Vol] 189 10*3/uL [facility] RBC (Bld) [#/Vol] 4.56 10*6/uL [facility] WBC LM Ql (Sput) 5.3 [facility] CK Totalon 06-21-2025 CK [Catalytic activity/Vol] 26 U/L 24 - 195 U/L [facility] Interpretation and review of laboratory results Normal [facility] CT Head WO contraston 2024 Examination: [...] Esau Restrepo MD on 06/21/2025 10:56 AM [facility] Radiology Study observation (narrative) [facility] CT Head WO contrastOrdered B y: Esau Restrepo on 06-21-2025 [facility] Work Phone: Electrolyte panelon 06-21-20 25 Anion gap [Moles/Vol] 8 mmol/L 5 - 15 mmol/L [facility] Chloride [Moles/Vol] 92 mmol/L Low 98 - 10 9 mmol/L [facility] CO2 [Moles/Vol] 26 mmol/L 22 - 32 mmol/L [facility] Interpretation and review of laboratory results Abnormal [facility] Potassium [Moles/Vol] 4.8 mmol/L 3.5 - 5.0 mmol/L [facility] Sodium [Moles/Vol] 126 mmol/L Low 134 - 146 mmol/L [facility] Anion gap [Moles/Vol] 9 mmol/L 5 - 15 mmol/L [facility] Chloride [Moles/Vol] 93 mmol/L Low 98 - 10 9 mmol/L [facility] CO2 [Moles/Vol] 25 mmol/L 22 - 32 mmol/L [facility] Interpretation and review of laboratory results Abnormal [facility] Potassium [Moles/Vol] 4.4 mmol/L 3.5 - 5.0 mmol/L [facility] Sodium [Moles/Vol] 127 mmol/L Low 134 - 146 mmol/L [facility] Anion gap [Moles/Vol] 9 mmol/L 5 - 15 mmol/L [facility] Chloride [Moles/Vol] 90 mmol/L Low 98 - 10 9 mmol/L [facility] CO2 [Moles/Vol] 25 mmol/L 22 - 32 mmol/L [facility] Interpretation and review of laboratory results Abnormal [facility] Potassium [Moles/Vol] 4.6 mmol/L 3.5 - 5.0 mmol/L [facility] Sodium [Moles/Vol] 124 mmol/L Low 134 - 146 mmol/L [facility] Erythrocyte Sedimentation Ra te (ESR)on 06-21-2025 ESR (Bld) [Velocity] 46 mm/h High 0 - 20 mm/h [facility] Interpretation and review of laboratory results Abnormal [facility] Gas panel (BldV)on Arterial patency Wrist artery --pre arterial puncture N/A [facility] Base excess Calc (Bld) [Moles/Vol] 2 mmol/L 0.0 - 2.0 mmol/L [facility] CO2 (BldV) [Partial pressure] 51.8 mm[Hg] High [facility] HCO3 (Bld) [Moles/Vol] 28.7 mmol/L High 20.0 - 24.0 mmol/L [facility] Interpretation and review of laboratory results Abnormal [facility] Oxygen (BldV) [Partial pressure] 29 mm[Hg] Low [facility] Oxygen therapy source and amount [CARE] Room Air [facility] Oxygen/Inspired gas setting [Volume Fraction] Ventilator 21 % [facility] pH (BldV) 7.351 [pH] 7.320 - 7.420 [facility] SaO2% Calculated from oxygen partial pressure (BldV) [Mass fraction] 50 % [facility] Specimen site Narrative N/A [facility] Specimen type Nom (Spec) VENOUS [facility] No Panel Informationon 06-21 [facility] Protime & INRon 06-21-2025 INR Coag (Platelet poor plasma or blood) [Relative time] 1.6 High 0.9 - 1.2 [facility] Interpretation and review of laboratory results Abnormal [facility] PT Coag (PPP) [Time] 17.7 s High [facility] Anti XA unfractionated hepar inon 06-20-2025 Heparin unfractionated Chromogenic method Qn (PPP) 0.62 [facility] Comment on above: Optimal time for raimundo ting is 6 hrs post dosage This test is specific for monitoring patients on UFH, and is not recommended for use with other Anti-Xa medications. Interpretation and review of laboratory results Normal [facility] Basic Metabolic Panelon Anion gap [Moles/Vol] 8 mmol/L 5 - 15 mmol/L [facility] Calcium [Mass/Vol] 9 mg/dL 8.5 - 10. 5 mg/dL [facility] Chloride [Moles/Vol] 89 mmol/L Low 98 - 10 9 mmol/L [facility] CO2 [Moles/Vol] 27 mmol/L 22 - 32 mmol/L [facility] Creatinine [Mass/Vol] 0.73 mg/dL 0.60 - 1.30 mg/dL [facility] Comment on above: METHOD TRACEABLE TO IDMS STANDARD EGFR Non-Race Dependent 90 - PINF [facility] Comment on above: Reported eGFR is bas ed on the CKD-EPI 2020 equation that does not use a race coefficient. Glucose [Mass/Vol] 98 mg/dL 65 - 99 mg/dL [facility] Potassium [Moles/Vol] 4.3 mmol/L 3.5 - 5.0 mmol/L [facility] Sodium [Moles/Vol] 124 mmol/L Low 134 - 146 mmol/L [facility] Urea nitrogen [Mass/Vol] 12 mg/dL 5 - 27 mg/dL [facility] CBC auto differentialon 080 Basophils (Bld) [#/Vol] 0.1 10*3/uL 0.0 - 0.2 10*3/uL [facility] Basophils/100 WBC (Bld) 1 % [facility] Differential cell count method Nom (Bld) AUTOMATED DIFFERENTIAL [facility] Eosinophils (Bld) [#/Vol] 0.1 10*3/uL 0.0 - 0.4 10*3/uL [facility] Eosinophils/100 WBC (Bld) 1.2 % [facility] Erythrocyte distribution width (RBC) [Ratio] 13.8 % 11.5 - 15 % [facility] Hematocrit (Bld) [Volume fraction] 38.1 % Low 39 - 50 % [facility] Hemoglobin (Bld) [Mass/Vol] 13.3 g/dL 13 - 17 g/dL [facility] Interpretation and review of laboratory results Abnormal [facility] Lymphocytes (Bld) [#/Vol] 1.5 10*3/uL 1.0 - 3.5 10*3/uL [facility] Lymphocytes/100 WBC (Bld) 22.4 % [facility] MCH (RBC) [Entitic mass] 31.3 pg 27 - 34 pg [facility] MCHC (RBC) [Mass/Vol] 34.9 g/dL 32 - 3 6 g/dL [facility] MCV (RBC) [Entitic vol] 90 fL 80 - 100 fL [facility] Monocytes (Bld) [#/Vol] 0.7 10*3/uL 0.0 - 0.9 10*3/uL [facility] Monocytes/100 WBC (Bld) 10.7 % [facility] Neutrophils (Bld) [#/Vol] 4.2 10*3/uL 1.5 - 6.6 10*3/uL [facility] Neutrophils/100 WBC (Bld) 64.7 % [facility] Platelet mean volume (Bld) [Entitic vol] 9.5 fL 7 - 12 fL [facility] Platelets (Bld) [#/Vol] 204 10*3/uL [facility] RBC (Bld) [#/Vol] 4.25 10*6/uL [facility] WBC LM Ql (Sput) 6.5 [facility] DISCONTINUE IN PROCESS EEG T ESTINGOrdered By: Documentation Systemgenerated on 06-20-2025 [facility] Work Phone: Electrolyte panelon 06-20-20 25 Anion gap [Moles/Vol] 8 mmol/L 5 - 15 mmol/L [facility] Chloride [Moles/Vol] 90 mmol/L Low 98 - 10 9 mmol/L [facility] CO2 [Moles/Vol] 24 mmol/L 22 - 32 mmol/L [facility] Interpretation and review of laboratory results Abnormal [facility] Potassium [Moles/Vol] 4.8 mmol/L 3.5 - 5.0 mmol/L [facility] Sodium [Moles/Vol] 122 mmol/L Low 134 - 146 mmol/L [facility] Anion gap [Moles/Vol] 8 mmol/L 5 - 15 mmol/L [facility] Chloride [Moles/Vol] 90 mmol/L Low 98 - 10 9 mmol/L [facility] CO2 [Moles/Vol] 24 mmol/L 22 - 32 mmol/L [facility] Interpretation and review of laboratory results Abnormal [facility] Potassium [Moles/Vol] 4.6 mmol/L 3.5 - 5.0 mmol/L [facility] Sodium [Moles/Vol] 122 mmol/L Low 134 - 146 mmol/L [facility] Anion gap [Moles/Vol] 8 mmol/L 5 - 15 mmol/L [facility] Chloride [Moles/Vol] 90 mmol/L Low 98 - 10 9 mmol/L [facility] CO2 [Moles/Vol] 24 mmol/L 22 - 32 mmol/L [facility] Interpretation and review of laboratory results Abnormal [facility] Potassium [Moles/Vol] 4.3 mmol/L 3.5 - 5.0 mmol/L [facility] Sodium [Moles/Vol] 122 mmol/L Low 134 - 146 mmol/L [facility] Holter monitor studyon 06-20 Images from [...] or primary neurological disorders. Yaquelin Esparza MD [employer] Neurology/Neurophysi ology [facility] MANUALLY TRANSCRIBED RESULTS [facility] Lavender Topon 06-20-2025 Extra Tube Auto Resulted [facility] No Panel Informationon 06-20 [facility] Interpretation and review of laboratory results Abnormal [facility] Osmolality, urineOrdered By: Dixon Rodriguez on 06-20-2025 Interpretation and review of laboratory results Normal [facility] Osmolality (U) [Osmolality] 565 mosm/kg [facility] Protime & INRon 06-20-2025 INR Coag (Platelet poor plasma or blood) [Relative time] 1.3 High 0.9 - 1.2 [facility] PT Coag (PPP) [Time] 15 s High [facility] Sodium, urine, randomon Sodium (U) [Moles/Vol] 64 mmol/L [facility] Thyroid profile includes TSH FT4on 06-20-2025 Free T4 [Mass/Vol] 1.13 ng/dL 0.61 - 1. 60 ng/dL [facility] Interpretation and review of laboratory results Abnormal [facility] TSH Qn 4.83 m[IU]/L High [facility] Uric acidon 06-20-2025 Interpretation and review of laboratory results Normal [facility] Urate [Mass/Vol] 4.4 mg/dL 2.6 - 7.2 mg/dL [facility] Urine Creatinine,randomon Creatinine (U) [Mass/Vol] 150.26 mg/dL [facility] Anti XA unfractionated hepar inon 06-19-2025 Heparin unfractionated Chromogenic method Qn (PPP) 0.64 [facility] Comment on above: Optimal time for raimundo ting is 6 hrs post dosage This test is specific for monitoring patients on UFH, and is not recommended for use with other Anti-Xa medications. Interpretation and review of laboratory results Normal [facility] Anti XA unfractionated hepar inOrdered By: Barbra Howell on 06-19-2025 Heparin unfractionated Chromogenic method Qn (PPP) 0.6 [facility] Comment on above: Optimal time for raimundo ting is 6 hrs post dosage This test is specific for monitoring patients on UFH, and is not recommended for use with other Anti-Xa medications. Interpretation and review of laboratory results Normal [facility] Basic Metabolic Panelon Anion gap [Moles/Vol] 9 mmol/L 5 - 15 mmol/L [facility] Calcium [Mass/Vol] 8.8 mg/dL 8.5 - 10. 5 mg/dL [facility] Chloride [Moles/Vol] 88 mmol/L Low 98 - 10 9 mmol/L [facility] CO2 [Moles/Vol] 26 mmol/L 22 - 32 mmol/L [facility] Creatinine [Mass/Vol] 0.73 mg/dL 0.60 - 1.30 mg/dL [facility] Comment on above: METHOD TRACEABLE TO IDMS STANDARD EGFR Non-Race Dependent 90 - PINF [facility] Comment on above: Reported eGFR is bas ed on the CKD-EPI 2020 equation that does not use a race coefficient. Glucose [Mass/Vol] 104 mg/dL High 65 - 99 mg/dL [facility] Interpretation and review of laboratory results Abnormal [facility] Potassium [Moles/Vol] 4.3 mmol/L 3.5 - 5.0 mmol/L [facility] Sodium [Moles/Vol] 123 mmol/L Low 134 - 146 mmol/L [facility] Urea nitrogen [Mass/Vol] 10 mg/dL 5 - 27 mg/dL [facility] CBC auto differentialon Basophils (Bld) [#/Vol] 0.1 10*3/uL 0.0 - 0.2 10*3/uL [facility] Basophils/100 WBC (Bld) 0.7 % [facility] Differential cell count method Nom (Bld) AUTOMATED DIFFERENTIAL [facility] Eosinophils (Bld) [#/Vol] 0.1 10*3/uL 0.0 - 0.4 10*3/uL [facility] Eosinophils/100 WBC (Bld) 1.1 % [facility] Erythrocyte distribution width (RBC) [Ratio] 13.5 % 11.5 - 15 % [facility] Hematocrit (Bld) [Volume fraction] 38.7 % Low 39 - 50 % [facility] Hemoglobin (Bld) [Mass/Vol] 13.4 g/dL 13 - 17 g/dL [facility] Interpretation and review of laboratory results Abnormal [facility] Lymphocytes (Bld) [#/Vol] 1.3 10*3/uL 1.0 - 3.5 10*3/uL [facility] Lymphocytes/100 WBC (Bld) 16 % [facility] MCH (RBC) [Entitic mass] 31.1 pg 27 - 34 pg [facility] MCHC (RBC) [Mass/Vol] 34.6 g/dL 32 - 3 6 g/dL [facility] MCV (RBC) [Entitic vol] 90 fL 80 - 100 fL [facility] Monocytes (Bld) [#/Vol] 1 10*3/uL High 0.0 - 0.9 10*3/uL [facility] Monocytes/100 WBC (Bld) 12.6 % [facility] Neutrophils (Bld) [#/Vol] 5.5 10*3/uL 1.5 - 6.6 10*3/uL [facility] Neutrophils/100 WBC (Bld) 69.6 % [facility] Platelet mean volume (Bld) [Entitic vol] 8.8 fL 7 - 12 fL [facility] Platelets (Bld) [#/Vol] 200 10*3/uL [facility] RBC (Bld) [#/Vol] 4.31 10*6/uL [facility] WBC LM Ql (Sput) 7.9 [facility] Cardiac echo study Procedure Ordered By: Abel Gross on 06-19-2025 Est. RA pressure 15 mmHg [facility] Work Phone: [facility] [employer] Work Phone: Cardiac echo study Procedure on [...] globally hypokinetic. [facility] Radiology Study observation (narrative) [facility] Electrolyte panelon 06-19-20 25 Anion gap [Moles/Vol] 7 mmol/L 5 - 15 mmol/L [facility] Chloride [Moles/Vol] 89 mmol/L Low 98 - 10 9 mmol/L [facility] CO2 [Moles/Vol] 24 mmol/L 22 - 32 mmol/L [facility] Interpretation and review of laboratory results Abnormal [facility] Potassium [Moles/Vol] 4.7 mmol/L 3.5 - 5.0 mmol/L [facility] Sodium [Moles/Vol] 120 mmol/L Low 134 - 146 mmol/L [facility] Magnesiumon 06-19-2025 Interpretation and review of laboratory results Normal [facility] Magnesium [Mass/Vol] 2.3 mg/dL 1.8 - 2 .6 mg/dL [facility] No Panel Informationon 06-19 [facility] US Carotid arteries - bilate ralon 06-19-2025 [...] at the phone number beside their name. [facility] Radiology Study observation (narrative) [facility] US Carotid arteries - bilate ralOrdered By: Abel Ballesteros on 06-19-2025 [facility] [employer] [employer] [facility] [employer] Work Phone: APTTon 06-18-2025 aPTT Coag (PPP) [Time] 29 s [facility] Interpretation and review of laboratory results Normal [facility] Anti XA unfractionated hepar inon 06-18-2025 Heparin unfractionated Chromogenic method Qn (PPP) 0.26 Low [facility] Comment on above: Optimal time for raimundo ting is 6 hrs post dosage This test is specific for monitoring patients on UFH, and is not recommended for use with other Anti-Xa medications. Interpretation and review of laboratory results Abnormal [facility] Basic Metabolic Panelon 08-0 Anion gap [Moles/Vol] 10 mmol/L 5 - 15 mmol/L [facility] Calcium [Mass/Vol] 9.1 mg/dL 8.5 - 10. 5 mg/dL [facility] Chloride [Moles/Vol] 93 mmol/L Low 98 - 10 9 mmol/L [facility] CO2 [Moles/Vol] 24 mmol/L 22 - 32 mmol/L [facility] Creatinine [Mass/Vol] 0.71 mg/dL 0.60 - 1.30 mg/dL [facility] Comment on above: METHOD TRACEABLE TO IDMS STANDARD EGFR Non-Race Dependent - PINF [facility] Comment on above: Reported eGFR is bas ed on the CKD-EPI 2020 equation that does not use a race coefficient. Glucose [Mass/Vol] 81 mg/dL 65 - 99 mg/dL [facility] Interpretation and review of laboratory results Abnormal [facility] Potassium [Moles/Vol] 4.3 mmol/L 3.5 - 5.0 mmol/L [facility] Sodium [Moles/Vol] 127 mmol/L Low 134 - 146 mmol/L [facility] Urea nitrogen [Mass/Vol] 10 mg/dL 5 - 27 mg/dL [facility] Bedside Glucose *Place/Obtai n serum glucose if >500 per glucometer.on 06-18-2025 Glucose [Mass/Vol] 154 mg/dL High 65 - 99 mg/dL [facility] Interpretation and review of laboratory results Abnormal [facility] CBC auto differentialon Basophils (Bld) [#/Vol] 0.1 10*3/uL 0.0 - 0.2 10*3/uL [facility] Basophils/100 WBC (Bld) 1.5 % [facility] Differential cell count method Nom (Bld) AUTOMATED DIFFERENTIAL [facility] Eosinophils (Bld) [#/Vol] 0.2 10*3/uL 0.0 - 0.4 10*3/uL [facility] Eosinophils/100 WBC (Bld) 3.7 % [facility] Erythrocyte distribution width (RBC) [Ratio] 13.3 % 11.5 - 15 % [facility] Hematocrit (Bld) [Volume fraction] 36 % Low 39 - 50 % [facility] Hemoglobin (Bld) [Mass/Vol] 12.7 g/dL Low 13 - 17 g/dL [facility] Interpretation and review of laboratory results Abnormal [facility] Lymphocytes (Bld) [#/Vol] 1.2 10*3/uL 1.0 - 3.5 10*3/uL [facility] Lymphocytes/100 WBC (Bld) 22.7 % [facility] MCH (RBC) [Entitic mass] 31.5 pg 27 - 34 pg [facility] MCHC (RBC) [Mass/Vol] 35.4 g/dL 32 - 3 6 g/dL [facility] MCV (RBC) [Entitic vol] 89 fL 80 - 100 fL [facility] Monocytes (Bld) [#/Vol] 0.6 10*3/uL 0.0 - 0.9 10*3/uL [facility] Monocytes/100 WBC (Bld) 11.6 % [facility] Neutrophils (Bld) [#/Vol] 3.3 10*3/uL 1.5 - 6.6 10*3/uL [facility] Neutrophils/100 WBC (Bld) 60.5 % [facility] Platelet mean volume (Bld) [Entitic vol] 9.5 fL 7 - 12 fL [facility] Platelets (Bld) [#/Vol] 251 10*3/uL [facility] RBC (Bld) [#/Vol] 4.05 10*6/uL Low [facility] WBC LM Ql (Sput) 5.4 [facility] EEGon 06-18-2025 Images from the [...] or primary neurological disorders. Yaquelin Esparza MD [employer] Neurology/Neurophysi ology [facility] MANUALLY TRANSCRIBED RESULTS EEGOrdered By: Yaquelin Esparza on 06-18-2025 [facility] Work Phone: Hemoglobinon 06-18-2025 Hemoglobin (Bld) [Mass/Vol] 13.9 g/dL 13 - 17 g/dL [facility] Hemoglobin A1con 06-18-2025 Average glucose Estimated from glycated hemoglobin (Bld) [Mass/Vol] 117 mg/dL [facility] HbA1c (Bld) [Mass fraction] 5.7 % High 4.4 - 5.6 % [facility] Comment on above: ADA Guidelines Result HgbA1c Normal : less than 5.7 % Prediabetes : 5.7 % to 6.4 % Diabetes : > 6.4 % Use with caution in patients with abnormal hemoglobin variants as the half-life of red blood cells and in vivo glycation rates are affected. Interpretation and review of laboratory results Abnormal [facility] Lipid profileon 06-18-2025 Cholesterol [Mass/Vol] 150 mg/dL 150 - 200 mg/dL [facility] Cholesterol in HDL [Mass/Vol] 41 mg/dL 39 - PINF mg/dL [facility] Comment on above: HDL <40 mg/dL - High Risk HDL > or = 40mg/dL- Desirable HDL >60 mg/dL - Negative Risk Cholesterol in HDL [Mass/Vol] 3.7 mg/dL 1.0 - 5.0 [facility] Cholesterol in LDL [Mass/Vol] 95 mg/dL NINF - 130 mg/dL [facility] Comment on above: LDL <100 mg/dL - Carlos A irable LDL >160 mg/dL - High Risk Cholesterol in VLDL [Mass/Vol] 14 mg/dL 0 - 30 mg/dL [facility] Interpretation and review of laboratory results Normal [facility] Triglyceride [Mass/Vol] 70 mg/dL 27 - 150 mg/dL [facility] MR Brain WO contraston 06-18 HISTORY: [...] Ray Vaughn MD on 06/18/2025 9:50 AM [facility] Ray Vaughn MD - 06/18/2025 HISTORY: [...] Ray Vaughn MD on 06/18/2025 9:50 AM [facility] Radiology Study observation (narrative) [facility] MR Brain WO contrastOrdered By: Ray Vaughn on 06-18-2025 [facility] Work Phone: Magnesiumon 06-18-2025 Interpretation and review of laboratory results Abnormal [facility] Magnesium [Mass/Vol] 1.6 mg/dL Low 1.8 - 2 .6 mg/dL [facility] No Panel Informationon 06-18 Interpretation and review of laboratory results Normal [facility] OsmolalityOrdered By: Elisa erickson on 06-18-2025 Interpretation and review of laboratory results Abnormal [facility] Osmolality [Osmolality] 261 mosm/kg Low [facility] PST TOPon 06-18-2025 Extra Tube Auto Resulted [facility] Platelet counton 06-18-2025 Platelet mean volume (Bld) [Entitic vol] 8.7 fL 7 - 12 fL [facility] Platelets (Bld) [#/Vol] 214 10*3/uL [facility] Protime & INRon 06-18-2025 INR Coag (Platelet poor plasma or blood) [Relative time] 1.1 0.9 - 1.2 [facility] Interpretation and review of laboratory results Normal [facility] PT Coag (PPP) [Time] 13 s [facility] INR Coag (Platelet poor plasma or blood) [Relative time] 1.1 0.9 - 1.2 [facility] Interpretation and review of laboratory results Normal [facility] PT Coag (PPP) [Time] 13 s [facility] Bedside Glucose *Place/Obtai n serum glucose if >500 per glucometer.on 06-17-2025 Glucose [Mass/Vol] 111 mg/dL High 65 - 99 mg/dL [facility] Interpretation and review of laboratory results Abnormal [facility] CBC auto differentialon Basophils (Bld) [#/Vol] 0.1 10*3/uL 0.0 - 0.2 10*3/uL [facility] Basophils/100 WBC (Bld) 1.5 % [facility] Differential cell count method Nom (Bld) AUTOMATED DIFFERENTIAL [facility] Eosinophils (Bld) [#/Vol] 0.1 10*3/uL 0.0 - 0.4 10*3/uL [facility] Eosinophils/100 WBC (Bld) 3 % [facility] Erythrocyte distribution width (RBC) [Ratio] 13.8 % 11.5 - 15 % [facility] Hematocrit (Bld) [Volume fraction] 37.3 % Low 39 - 50 % [facility] Hemoglobin (Bld) [Mass/Vol] 13 g/dL 13 - 17 g/dL [facility] Interpretation and review of laboratory results Abnormal [facility] Lymphocytes (Bld) [#/Vol] 1.3 10*3/uL 1.0 - 3.5 10*3/uL [facility] Lymphocytes/100 WBC (Bld) 27.2 % [facility] MCH (RBC) [Entitic mass] 31.2 pg 27 - 34 pg [facility] MCHC (RBC) [Mass/Vol] 34.8 g/dL 32 - 3 6 g/dL [facility] MCV (RBC) [Entitic vol] 90 fL 80 - 100 fL [facility] Monocytes (Bld) [#/Vol] 0.5 10*3/uL 0.0 - 0.9 10*3/uL [facility] Monocytes/100 WBC (Bld) 10.1 % [facility] Neutrophils (Bld) [#/Vol] 2.8 10*3/uL 1.5 - 6.6 10*3/uL [facility] Neutrophils/100 WBC (Bld) 58.2 % [facility] Platelet mean volume (Bld) [Entitic vol] 9.4 fL 7 - 12 fL [facility] Platelets (Bld) [#/Vol] 193 10*3/uL [facility] RBC (Bld) [#/Vol] 4.17 10*6/uL [facility] WBC LM Ql (Sput) 4.8 [facility] [...] Nico Dempsey MD on 06/17/2025 5:08 PM [facility] Radiology Study observation (narrative) [facility] CT perfusion HeadOrdered By: Nico Dempsey on 06-17-2025 [facility] [employer] Work Phone: Comprehensive metabolic pane patricio 06-17-2025 Albumin [Mass/Vol] 3.9 g/dL 3.2 - 5.3 g/dL [facility] ALP [Catalytic activity/Vol] 81 U/L 39 - 130 U/L [facility] ALT No additional P-5'-P [Catalytic activity/Vol] 11 U/L NINF - 40 U/L [facility] Anion gap [Moles/Vol] 8 mmol/L 5 - 15 mmol/L [facility] AST [Catalytic activity/Vol] 20 U/L NINF - 41 U/L [facility] Bilirubin [Mass/Vol] 1.1 mg/dL 0.3 - 1 .2 mg/dL [facility] Calcium [Mass/Vol] 9.2 mg/dL 8.5 - 10. 5 mg/dL [facility] Chloride [Moles/Vol] 93 mmol/L Low 98 - 10 9 mmol/L [facility] CO2 [Moles/Vol] 26 mmol/L 22 - 32 mmol/L [facility] Creatinine [Mass/Vol] 0.75 mg/dL 0.60 - 1.30 mg/dL [facility] Comment on above: METHOD TRACEABLE TO IDMD STANDARD EGFR Non-Race Dependent 90 - PINF [facility] Comment on above: Reported eGFR is bas ed on the CKD-EPI 2020 equation that does not use a race coefficient. Glucose [Mass/Vol] 94 mg/dL 65 - 99 mg/dL [facility] Potassium [Moles/Vol] 4.5 mmol/L 3.5 - 5.0 mmol/L [facility] Protein [Mass/Vol] 6.5 g/dL 6.0 - 8.0 g/dL [facility] Sodium [Moles/Vol] 127 mmol/L Low 134 - 146 mmol/L [facility] Urea nitrogen [Mass/Vol] 10 mg/dL 5 - 27 mg/dL [facility] Magnesiumon 06-17-2025 Magnesium [Mass/Vol] 1.7 mg/dL Low 1.8 - 2 .6 mg/dL [facility] No Panel Informationon 06-17 Interpretation and review of laboratory results Abnormal [facility] Phosphoruson 06-17-2025 Interpretation and review of laboratory results Normal [facility] Phosphate [Mass/Vol] 3.3 mg/dL 2.4 - 4 .9 mg/dL [facility] Population Healthon 06-14-20 25 Population [facility] Population Health Case Information Case Priority: None Programs: -- Referral Source: [employer] Referral Reason: Care coordination Case Type: Transition [...] Care Plan Progress Note Admit Date: 06/12/25 [facility] Discharge Date: 06/13/25 Follow-up appointment scheduled? yes, TCM with [facility] 06/19/25 at 1340 Did you understand your discharge instructions? yes Are you able to follow them? yes Did you receive new medications? yes, ASA 81 mg QD. stop; lisinopril, meloxicam Have you filled the Rx's? per spouse, going this morning to [facility], states it was late last night [...] following appointmen (more content not included)... Normal [facility] CMPon 06-07-2025 Albumin [Mass/Vol] 4.1 g/dL Normal 3.3-5.0 [facility] Comment on above: Performed By: #### [id number] #### [facility] [address] [place] [address] Albumin/Globulin [Mass ratio] 1.6 {ratio} Normal 1.1-2.2 [facility] Comment on above: Performed By: #### [id number] #### [facility] [address] [place] [address] Alk Phos 86 Int._Unit/L Normal 21-98 [facility] Comment on above: Performed By: #### 2 [id number] #### [facility] [address] [place] [address] ALT 12 Int._Unit/L Normal 6-46 [facility] Comment on above: Performed By: #### 2 [id number] #### [facility] [address] [place] [address] Anion gap [Moles/Vol] 9 mmol/L Normal 6-16 [facility] Comment on above: Performed By: #### 2 [id number] #### [facility] [address] [place] [address] AST 24 Int._Unit/L Normal 5-43 [facility] Comment on above: Performed By: #### 2 [id number] #### [facility] [address] [place] [address] Bili Total 1.0 mg/dL Normal 0.0-1.1 [facility] Comment on above: Performed By: #### 2 [id number] #### [facility] [address] [place] [address] BUN/Creat Ratio 26 No Units High 10-20 [facility] Comment on above: Performed By: #### 2 [id number] #### [facility] [address] [place] [address] Calcium [Mass/Vol] 9.8 mg/dL Normal 8.9-11.1 [facility] Comment on above: Performed By: #### 2 [id number] #### [facility] [address] [place] [address] Chloride [Moles/Vol] 95 mmol/L Low 101-111 [facility] Comment on above: Performed By: #### 2 [id number] #### [facility] [address] [place] [address] CO2 [Moles/Vol] 27 mmol/L Normal 21-31 [facility] Comment on above: Performed By: #### 2 [id number] #### [facility] [address] [place] [address] Creatinine [Mass/Vol] 1.1 mg/dL Normal 0.5-1.3 [facility] Comment on above: Performed By: #### 2 [id number] #### [facility] [address] [place] [address] Globulin (S) [Mass/Vol] 2.6 g/dL Normal 1.4-4.0 [facility] Comment on above: Performed By: #### 2 [id number] #### [facility] [address] [place] [address] Glucose [Mass/Vol] 190 mg/dL Normal 55-199 [facility] Comment on above: Performed By: #### 2 485776 #### [facility] [address] [place] [address] Potassium [Moles/Vol] 4.2 mmol/L Normal 3.5-5.3 [facility] Comment on above: Performed By: #### 2 659430 #### [facility] [address] [place] [address] Protein [Mass/Vol] 6.7 g/dL Normal 6.0-7.8 [facility] Comment on above: Performed By: #### 2 998117 #### [facility] [address] [place] [address] Sodium [Moles/Vol] 127 mmol/L Low 135-145 [facility] Comment on above: Performed By: #### 2 092907 #### [facility] [address] [place] [address] Urea nitrogen [Mass/Vol] 29 mg/dL High 5-21 [facility] Comment on above: Performed By: #### 2 [id number] #### [facility] [address] [place] [address] Family Medicine Office/Clini c Noteon 06-07-2025 Family Medicine Office/Clinic Note Family Medicine Office/Clinic Note Chief Complaint Discuss Medications The patient presents for a follow-up after hospitalization due to a nasal fracture. HPI Staff Former Dr Adam lazaro. Pt presents today to follow up to hospitalization in [place]. Fell and hit his nose. Went to [facility] ER due to excessive bleeding. They packed it and DC'd pt. Upon arrival home, nose started bleeding again. Pt went back to ER, ethel. He was then transferred to [facility] in [place] where they admitted him for 3-4days. Sodium was dc'd. And pt was started on Lisinopril & Keflex & Ure-NA History of Present Illness 85-year-old male presents with his following a recent hospital stay for a nasal fracture. The incident occurred when the patient fell while attempting to lacey his stomach, resulting in a nasal fracture and subsequent bleeding. He was initially treated at [facility] with nasal packing and later transferred to [facility] for further management. During hospitalization, the patient [...] [facility] in [place] - Sodium level on discharge 127 - Awaiting laboratory results - f/u in one week Ordered: Non-Formulary Medication, Ure-Na, See Instructions, 15 packet(s), 0, Natural Lemon [place] flavor, [id number], Supply, 178.6, cm, 06/07/25 [...] See Instructions, 15 packet(s), 0, Natural Lemon [place] flavor, [id number], Supply, 178.6, cm, 06/07/25 10:56:00 EDT, Height/Length Dosing, 74.3, kg, 06/07/25 10:56:00 EDT, Weight Dosing 4. Nonsmoker (Z78.9: Other specified health status) Encouraged to continue as a non-smoker Ordered: Non-Formulary Medication, Ure-Na, See Instructions, 15 packet(s), 0, Natural Lemon [place] flavor, [id number], Supply, 178.6, cm, 06/07/25 10:56:00 EDT, Height/Length Dosing, 74.3, kg, 06/07/25 10:56:00 EDT, Weight Dosing total time spent preparing the chart, conducting of the encounter with the patient and family and time spent documenting, reviewing, and ordering tests was 40 minutes. Follow-up With When Contact Information YANIQUE MCNEILL CNP, FAM In 6 days 06/13/2025 EDT [address] [place] [address] Business (1) Additional Instructions: Patient Education Hyponatremia, Cqfe-bj-Peds Problem List/Past Medical History Ongoing ASCVD (arteriosclerotic cardiovascular disease) Back spasm BMI 23.0-23.9, adult BMI 25.0-25.9,adult Carpal tunnel syndrome, left DM type 2 causing vascular disease Encounter for surveillance of abnormal nevi Erectile dysfunction due to arterial insufficiency Hard of hearing Hyperlipidemia Hyponatremia Hypothyroid Longstanding persistent atrial fibrillation Non (more content not included)... Normal [facility] Comment on above: Result Comment: Elec tronically Signed By: YANIQUE MCNEILL CNP\.br\Date and Time Signed: 06/07/25 14:35 EDT eGFRon 06-07-2025 eGFR 67 mL/min/1.73 m2 Normal >=59 [facility] Comment on above: Performed By: #### 1 [id number] #### [facility] [address] [place] [address] Basic Metabolic Panelon 05-15 Anion gap [Moles/Vol] 12 mmol/L 9 - 16 mmol/L [facility] Calcium [Mass/Vol] 9.2 mg/dL 8.6 - 10. 4 mg/dL [facility] Chloride [Moles/Vol] 95 mmol/L Low 98 - 10 7 mmol/L [facility] CO2 [Moles/Vol] 19 mmol/L Low 20 - 31 mmol/L [facility] Creatinine [Mass/Vol] 0.8 mg/dL 0.7 - 1.2 mg/dL [facility] Jesu Appiaht Rate 88 - PINF [facility] Comment [...] 112 mg/dL High 74 - 99 mg/dL [facility] Interpretation and review of laboratory results Abnormal [facility] Potassium [Moles/Vol] 4.5 mmol/L 3.7 - 5.3 mmol/L [facility] Comment on above: Specimen hemolysis h as exceeded the interference as defined by Sindy. Value may be falsely increased. Suggest recollection if clinically indicated. Sodium [Moles/Vol] 126 mmol/L Low 136 - 145 mmol/L [facility] Urea nitrogen [Mass/Vol] 13 mg/dL 8 - 23 mg/dL [facility] Basic Metabolic Profon 06-05 Anion gap [Moles/Vol] 12 mmol/L Normal 9-16 [facility] Comment on above: Performed By: #### P T, BMP #### [email or web address] [place], [place] [phone] Intelligence Engineer: Pankaj Cordoba MD Calcium [Mass/Vol] 9.2 mg/dL Normal 8.6-10.4 [facility] Comment on above: Performed By: #### P T, BMP #### [email or web address] [place], [place] [phone] Intelligence Engineer: Pankaj Cordoba MD Chloride [Moles/Vol] 95 mmol/L Low 98-107 [facility] Comment on above: Performed By: #### P T, BMP #### [address] [address] Intelligence Engineer: Pankaj Cordoba MD CO2 [Moles/Vol] 19 mmol/L Low 20-31 [facility] Comment on above: Performed By: #### P T, BMP #### [address] [address] Intelligence Engineer: Pankaj Cordoba MD Creatinine [Mass/Vol] 0.8 mg/dL Normal 0.7-1.2 [facility] Comment on above: Performed By: #### P T, BMP #### [address] [address] Intelligence Engineer: Pankaj Cordoba MD GFR/1.73 sq M.predicted among non-blacks MDRD (S/P/Bld) [Vol rate/Area] 88 mL/min/{1.73_m2} Normal >60 [facility] Comment on above: Result Comment: [...] Performed By: #### P T, BMP #### [address] [address] Intelligence Engineer: Pankaj Cordoba MD Glucose [Mass/Vol] 112 mg/dL High 74-99 [facility] Comment on above: Performed By: #### P T, BMP #### [address] [address] Intelligence Engineer: Pankaj Cordoba MD Potassium [Moles/Vol] 4.5 mmol/L Normal 3.7-5.3 [facility] Comment on above: Result Comment: Spec imen hemolysis has exceeded the interference as defined by Sindy. Value may be falsely increased. Suggest recollection if clinically indicated. Performed By: #### P T, BMP #### [facility] [address] [place] [address] Intelligence Engineer: Pankaj Cordoba MD Sodium [Moles/Vol] 126 mmol/L Low 136-145 [facility] Comment on above: Performed By: #### P T, BMP #### [facility] [address] [place] [address] Intelligence Engineer: Pankaj Cordoba MD Urea nitrogen [Mass/Vol] 13 mg/dL Normal - [facility] Comment on above: Performed By: #### P T, BMP #### [email or web address] [place], [place] [phone] Intelligence Engineer: Pankaj Cordoba MD Electrolyte Panelon 06-05-20 Anion gap [Moles/Vol] 16 mmol/L 9 - 16 mmol/L [facility] Chloride [Moles/Vol] 92 mmol/L Low 98 - 10 7 mmol/L [facility] [email or web address] CO2 [Moles/Vol] 19 mmol/L Low 20 - 31 mmol/L [facility] [email or web address] Interpretation and review of laboratory results Abnormal [facility] Potassium [Moles/Vol] 4.4 mmol/L 3.7 - 5.3 mmol/L [facility] Comment on above: Specimen hemolysis h as exceeded the interference as defined by Sindy. Value may be falsely increased. Suggest recollection if clinically indicated. Sodium [Moles/Vol] 127 mmol/L Low 136 - 145 mmol/L [facility] Electrolyteson 06-05-2025 Anion gap [Moles/Vol] 16 mmol/L Normal 9-16 [facility] Comment on above: Performed By: #### L YTE ####[employer] [address] [place] [address] Lab Director: Pankaj Cordoba MD Chloride [Moles/Vol] 92 mmol/L Low 98-107 [facility] Comment on above: Performed By: #### L YTE ####[facility] [address] [place] [address] Lab Director: Pankaj Cordoba MD CO2 [Moles/Vol] 19 mmol/L Low 20-31 [facility] Comment on above: Performed By: #### L YTE ####[facility] [address] [place] [address] lab Director: Pankaj Cordoba MD Potassium [Moles/Vol] 4.4 mmol/L Normal 3.7-5.3 [facility] Comment on above: Result Comment: Spec imen hemolysis has exceeded the interference as defined by Sindy. Value may be falsely increased. Suggest recollection if clinically indicated. Performed By: #### L YTE ####[facility] [address] [place] [address] Lab Director: Pankaj Cordoba MD Sodium [Moles/Vol] 127 mmol/L Low 136-145 [facility] Comment on above: Performed By: #### L YTE ####[facility] [address] [place] [address] lab Director: Pankaj Cordoba MD Glucose,Whole Bloodon 2024 Glucose [Mass/Vol] 145 mg/dL High 75-110 [facility] Glucose [Mass/Vol] 108 mg/dL Normal 75-110 [facility] POC Glucose Fingerstickon Glucose [Mass/Vol] 145 mg/dL High 75 - 110 mg/dL [facility] [email or web address] Interpretation and review of laboratory results Abnormal [facility] [email or web address] Glucose [Mass/Vol] 108 mg/dL 75 - 110 mg/dL [facility] PTon 06-05-2025 INR Coag (PPP) [Relative time] 1.9 {INR} Normal [facility] Comment on above: Result Comment: Therapeutic Range: Moderate Anticoagulant Intensity: INR = 2.0-3.0 High Anticoagulant Intensity: INR = 2.5-3.5 Performed By: #### P T, BMP #### [email or web address] [place] [address] Intelligence Engineer: Pankaj Cordoba MD PT Coag (PPP) [Time] 22.4 s High 11.7-14.9 [facility] Comment on above: Performed By: #### P T, BMP #### [email or web address] [place], [place] [phone] Intelligence Engineer: Pankaj Cordoba MD Protime-INRon 06-05-2025 INR Coag (PPP) [Relative time] 1.9 {INR} [facility] Comment on above: Therapeutic Range: Moderate Anticoagulant Intensity: INR = 2.0-3.0 High Anticoagulant Intensity: INR = 2.5-3.5 Interpretation and review of laboratory results Abnormal [facility] [email or web address] PT Coag (PPP) [Time] 22.4 s High [facility] Arterial Bld Gas,POCon 06-04 HCO3 (Bld) [Moles/Vol] 24.6 mmol/L Normal 21.0-28.0 [facility] O2 Device Room Air Normal [facility] Oxygen saturation in Blood 97.2 % Normal 94.0-98.0 [facility] pCO2, Arterial 38.6 mm Hg Normal 35.0-48.0 [facility] pH, Arterial 7.412 Normal 7.350-7.450 [facility] pO2, Arterial 91.7 mm Hg Normal 83.0-108.0 [facility] Positive Base Excess (calc) 0.1 mmol/L Normal 0.0-3.0 [facility] Site Drawn Right Radial Artery Normal [facility] Arterial Blood Gas, POCon HCO3 (Bld) [Moles/Vol] 24.6 mmol/L 21.0 - 28.0 mmol/L [facility] O2 Delivery Device Room Air [facility] Oxygen saturation in Blood 97.2 % 94.0 - 98.0 % [facility] POC pCO2 38.6 [facility] POC pH 7.412 7.350 - 7.450 [facility] POC PO2 91.7 [facility] Positive Base Excess, Art 0.1 mmol/L 0.0 - 3.0 mmol/L [facility] Sample Site Right Radial Artery [facility] BUN, POCon 06-04-2025 Urea nitrogen [Mass/Vol] 11 mg/dL Normal 8-26 [facility] Basic Metab w/rfx MGon 06-04 Anion gap [Moles/Vol] 10 mmol/L Normal 9-16 [facility] Comment on above: Performed By: #### B MPX ####[facility] [address] [place] [address] Lab Director: Pankaj Cordoba MD Calcium [Mass/Vol] 8.6 mg/dL Normal 8.6-10.4 [facility] Comment on above: Performed By: #### B MPX ####[facility] [address] [place] [address] Lab Director: Pankaj Cordoba MD Chloride [Moles/Vol] 87 mmol/L Low 98-107 [facility] Comment on above: Performed By: #### B MPX ####[facility] [address] [place] [address] Lab Director: Pankaj Cordoba MD CO2 [Moles/Vol] 21 mmol/L Normal 20-31 [facility] Comment on above: Performed By: #### B MPX ####[facility] [address] [place] [address] Lab Director: Pankaj Cordoba MD Creatinine [Mass/Vol] 0.7 mg/dL Normal 0.7-1.2 [facility] Comment on above: Performed By: #### B MPX ####[facility] [address] [place] [address] Lab Director: Pankaj Cordoba MD GFR/1.73 sq M.predicted among non-blacks MDRD (S/P/Bld) [Vol rate/Area] mL/min/{1.73_m2} Normal >60 [facility] Comment on above: Result Comment: [...] tubular secretion. Performed By: #### B MPX ####[address] [address] Lab Director: Pankaj Cordoba MD Glucose [Mass/Vol] 107 mg/dL High 74-99 [facility] Comment on above: Performed By: #### B MPX ####[address] [address] Lab Director: Pankaj Cordoba MD Potassium [Moles/Vol] 4.8 mmol/L Normal 3.7-5.3 [facility] Comment on above: Result Comment: Spec imen hemolysis has exceeded the interference as defined by Sindy. Value may be falsely increased. Suggest recollection if clinically indicated. Performed By: #### B MPX ####[facility] [address] [place] [address] Lab Director: Pankaj Cordoba MD Sodium [Moles/Vol] 118 mmol/L Critically low 136-145 [facility] Comment on above: Performed By: #### B MPX ####[facility] [address] [place] [address] Lab Director: Pankaj Cordoba MD Urea nitrogen [Mass/Vol] 11 mg/dL Normal 8-23 [facility] Comment on above: Performed By: #### B MPX ####[address] [address] Lab Director: Pankaj Cordoba MD Anion gap [Moles/Vol] 12 mmol/L Normal 9-16 [facility] Comment on above: Performed By: #### B MPX #### [address] [address] Intelligence Engineer: Pankaj Cordoba MD Calcium [Mass/Vol] 8.8 mg/dL Normal 8.6-10.4 [facility] Comment on above: Performed By: #### B MPX #### [address] [address] Intelligence Engineer: Pankaj Cordoba MD Chloride [Moles/Vol] 88 mmol/L Low 98-107 [facility] Comment on above: Performed By: #### B MPX #### [address] [address] Intelligence Engineer: Pankaj Cordoba MD CO2 [Moles/Vol] 19 mmol/L Low 20-31 [facility] Comment on above: Performed By: #### B MPX #### [address] [address] Intelligence Engineer: Pankaj Cordoba MD Creatinine [Mass/Vol] 0.6 mg/dL Low 0.7-1.2 [facility] Comment on above: Performed By: #### B MPX #### [address] [address] Intelligence Engineer: Pankaj Cordoba MD GFR/1.73 sq M.predicted among non-blacks MDRD (S/P/Bld) [Vol rate/Area] mL/min/{1.73_m2} Normal >60 [facility] Comment on above: Result Comment: [...] secretion. Performed By: #### B MPX #### [address] [address] Intelligence Engineer: Pankaj Cordoba MD Glucose [Mass/Vol] 86 mg/dL Normal 74-99 [facility] Comment on above: Performed By: #### B MPX #### [address] [address] Intelligence Engineer: Pankaj Cordoba MD Potassium [Moles/Vol] 4.6 mmol/L Normal 3.7-5.3 [facility] Comment on above: Result Comment: Spec imen hemolysis has exceeded the interference as defined by Sindy. Value may be falsely increased. Suggest recollection if clinically indicated. Performed By: #### B MPX #### [address] [address] Intelligence Engineer: Pankaj Cordoba MD Sodium [Moles/Vol] 119 mmol/L Critically low 136-145 [facility] Comment on above: Performed By: #### B MPX #### [address] [address] Intelligence Engineer: Pankaj Cordoba MD Urea nitrogen [Mass/Vol] 11 mg/dL Normal 8-23 [facility] Comment on above: Performed By: #### B MPX #### [address] [address] Intelligence Engineer: Pankaj Cordoba MD Anion gap [Moles/Vol] 12 mmol/L Normal 9-16 [facility] Comment on above: Performed By: #### B MPX ####[address] [address] Lab Director: Pankaj Cordoba MD Calcium [Mass/Vol] 8.7 mg/dL Normal 8.6-10.4 [facility] Comment on above: Performed By: #### B MPX ####[address] [phone] Director: Pankaj Cordoba MD Chloride [Moles/Vol] 88 mmol/L Low 98-107 [facility] Comment on above: Performed By: #### B MPX ####[address] [phone] Director: Pankaj Cordoba MD CO2 [Moles/Vol] 19 mmol/L Low 20-31 [facility] Comment on above: Performed By: #### B MPX ####[address] [phone] Director: Pankaj Cordoba MD Creatinine [Mass/Vol] 0.6 mg/dL Low 0.7-1.2 [facility] Comment on above: Performed By: #### B MPX ####[address] [phone] Director: Pankaj Cordoba MD GFR/1.73 sq M.predicted among non-blacks MDRD (S/P/Bld) [Vol rate/Area] mL/min/{1.73_m2} Normal >60 [facility] Comment on above: Result Comment: [...] tubular secretion. Performed By: #### B MPX ####[address] [phone] Director: Pankaj Cordoba MD Glucose [Mass/Vol] 81 mg/dL Normal 74-99 [facility] Comment on above: Performed By: #### B MPX ####[facility] [address] [place], [place] [phone] Director: Pankaj Cordoba MD Potassium [Moles/Vol] 4.1 mmol/L Normal 3.7-5.3 [facility] Comment on above: Result Comment: Spec imen hemolysis has exceeded the interference as defined by Sindy. Value may be falsely increased. Suggest recollection if clinically indicated. Performed By: #### B MPX ####[facility] [address] [place] [address] [phone] Director: Pankaj Cordoba MD Sodium [Moles/Vol] 119 mmol/L Critically low 136-145 [facility] Comment on above: Performed By: #### B MPX ####[address] [phone] Director: Pankaj Cordoba MD Urea nitrogen [Mass/Vol] 11 mg/dL Normal 8-23 [facility] Comment on above: Performed By: #### B MPX ####[address] [phone] Director: Pankaj Cordoba MD Anion gap [Moles/Vol] 11 mmol/L Normal 9-16 [facility] Comment on above: Performed By: #### O SMO #### [facility] [employer] [facility] [place] [address] Intelligence Engineer: Pankaj Cordoba MD Calcium [Mass/Vol] 9.0 mg/dL Normal 8.6-10.4 [facility] Comment on above: Performed By: #### O SMO #### [address] [address] Intelligence Engineer: Pankaj Cordoba MD Chloride [Moles/Vol] 88 mmol/L Low 98-107 [facility] Comment on above: Performed By: #### O SMO #### [facility] [address] [place] [address] Intelligence Engineer: Pankaj Cordoba MD CO2 [Moles/Vol] 21 mmol/L Normal 20-31 [facility] Comment on above: Performed By: #### O SMO #### [address] [address] Intelligence Engineer: Pankaj Cordoba MD Creatinine [Mass/Vol] 0.6 mg/dL Low 0.7-1.2 [facility] Comment on above: Performed By: #### O SMO #### [address] [address] Intelligence Engineer: Pankaj Cordoba MD GFR/1.73 sq M.predicted among non-blacks MDRD (S/P/Bld) [Vol rate/Area] mL/min/{1.73_m2} Normal >60 [facility] Comment on above: Result Comment: [...] secretion. Performed By: #### O SMO #### [address] [address] Intelligence Engineer: Pankaj Cordoba MD Glucose [Mass/Vol] 75 mg/dL Normal 74-99 [facility] Comment on above: Performed By: #### O SMO #### [address] [address] Intelligence Engineer: Pankaj Cordoba MD Potassium [Moles/Vol] 4.3 mmol/L Normal 3.7-5.3 [facility] Comment on above: Performed By: #### O SMO #### [facility] [address] [place] [address] Intelligence Engineer: Pankaj Cordoba MD Sodium [Moles/Vol] 120 mmol/L Low 136-145 [facility] Comment on above: Performed By: #### O SMO #### [address] [address] Intelligence Engineer: Pankaj Cordoba MD Urea nitrogen [Mass/Vol] 11 mg/dL Normal 8-23 [facility] Comment on above: Performed By: #### O SMO #### [address] [address] Intelligence Engineer: Pankaj Cordoba MD Anion gap [Moles/Vol] 14 mmol/L Normal 9-16 [facility] Comment on above: Performed By: #### B MPX ####[address] [phone] Director: Pankaj Cordoba MD Calcium [Mass/Vol] 8.5 mg/dL Low 8.6-10.4 [facility] Comment on above: Performed By: #### B MPX ####[facility] [place], [place] [phone] Director: Pankaj Cordoba MD Chloride [Moles/Vol] 89 mmol/L Low 98-107 [facility] Comment on above: Performed By: #### B MPX ####[facility] [address] [place], [place] [phone] Director: Pankaj Cordoba MD CO2 [Moles/Vol] 17 mmol/L Low 20-31 [facility] Comment on above: Performed By: #### B MPX ####[facility] [address] [place], [place] [phone] Director: Pankaj Cordoba MD Creatinine [Mass/Vol] 0.6 mg/dL Low 0.7-1.2 [facility] Comment on above: Performed By: #### B MPX ####[place] [address] Lab Director: Pankaj Cordoba MD GFR/1.73 sq M.predicted among non-blacks MDRD (S/P/Bld) [Vol rate/Area] mL/min/{1.73_m2} Normal >60 [facility] Comment on above: Result Comment: [...] tubular secretion. Performed By: #### B MPX ####[place], [place] [address])[phone] Director: Pankaj Cordoba MD Glucose [Mass/Vol] 76 mg/dL Normal 74-99 [facility] Comment on above: Performed By: #### B MPX ####[place] [address] lab Director: Pankaj Cordoba MD Potassium [Moles/Vol] 4.4 mmol/L Normal 3.7-5.3 [facility] Comment on above: Result Comment: Spec imen hemolysis has exceeded the interference as defined by Sindy. Value may be falsely increased. Suggest recollection if clinically indicated. Performed By: #### B MPX ####[facility] [address] [place] [address] Lab Director: Pankaj Cordoba MD Sodium [Moles/Vol] 120 mmol/L Low 136-145 [facility] Comment on above: Performed By: #### B MPX ####[place] [address] Lab Director: Pankaj Cordoba MD Urea nitrogen [Mass/Vol] 11 mg/dL Normal 8-23 [facility] Comment on above: Performed By: #### B MPX ####[facility] [address] [place], [place] [phone] Director: Pankaj Cordoba MD Anion gap [Moles/Vol] 15 mmol/L Normal 9-16 [facility] Comment on above: Performed By: #### B MPX ####[facility] [address] [place], [place] [address])[phone] Director: Pankaj Cordoba MD Calcium [Mass/Vol] 8.6 mg/dL Normal 8.6-10.4 [facility] Comment on above: Performed By: #### B MPX ####[facility] [address] [place] [address])[phone] Director: Pankaj Cordoba MD Chloride [Moles/Vol] 86 mmol/L Low 98-107 [facility] Comment on above: Performed By: #### B MPX ####[facility] [address] [place], [place] [address])[phone] Director: Pankaj Cordoba MD CO2 [Moles/Vol] 16 mmol/L Low 20-31 [facility] Comment on above: Performed By: #### B MPX ####[address] [address] [place], [place] [address])[phone] Director: Pankaj Cordoba MD Creatinine [Mass/Vol] 0.7 mg/dL Normal 0.7-1.2 [facility] Comment on above: Performed By: #### B MPX ####[facility] [address] [place] [address])[phone] Director: Pankaj Cordoba MD GFR/1.73 sq M.predicted among non-blacks MDRD (S/P/Bld) [Vol rate/Area] mL/min/{1.73_m2} Normal >60 [facility] Comment on above: Result Comment: [...] tubular secretion. Performed By: #### B MPX ####[facility] [address] [place], [place] [phone] Director: Pankaj Cordoba MD Glucose [Mass/Vol] 90 mg/dL Normal 74-99 [facility] Comment on above: Performed By: #### B MPX ####[address] [phone] Director: Pankaj Cordoba MD Potassium [Moles/Vol] 4.1 mmol/L Normal 3.7-5.3 [facility] Comment on above: Result Comment: Spec imen hemolysis has exceeded the interference as defined by Sindy. Value may be falsely increased. Suggest recollection if clinically indicated. Performed By: #### B MPX ####[facility] [address] [place] [address] [phone] Director: Pankaj Cordoba MD Sodium [Moles/Vol] 117 mmol/L Critically low 136-145 [facility] Comment on above: Performed By: #### B MPX ####[facility] [address] [place] [address] [phone] Director: Pankaj Cordoba MD Urea nitrogen [Mass/Vol] 12 mg/dL Normal 8-23 [facility] Comment on above: Performed By: #### B MPX ####[place] [place] [address] Lab Director: Pankaj Cordoba MD Basic Metabolic Panel w/ Ref maura to MGon 07-22-2025 Anion gap [Moles/Vol] 10 mmol/L 9 - 16 mmol/L [facility] Calcium [Mass/Vol] 8.6 mg/dL 8.6 - 10. 4 mg/dL [facility] Chloride [Moles/Vol] 87 mmol/L Low 98 - 10 7 mmol/L [facility] CO2 [Moles/Vol] 21 mmol/L 20 - 31 mmol/L [facility] Creatinine [Mass/Vol] 0.7 mg/dL 0.7 - 1.2 mg/dL [facility] EstJesu Rate - PINF [facility] Comment [...] 107 mg/dL High 74 - 99 mg/dL [facility] Interpretation and review of laboratory results Abnormal [facility] Potassium [Moles/Vol] 4.8 mmol/L 3.7 - 5.3 mmol/L [facility] Comment on above: Specimen hemolysis h as exceeded the interference as defined by Sindy. Value may be falsely increased. Suggest recollection if clinically indicated. Sodium [Moles/Vol] 118 mmol/L Critically low 136 - 1 45 mmol/L [facility] Urea nitrogen [Mass/Vol] 11 mg/dL 8 - 23 mg/dL [facility] Anion gap [Moles/Vol] 12 mmol/L 9 - 16 mmol/L [facility] Calcium [Mass/Vol] 8.8 mg/dL 8.6 - 10. 4 mg/dL [facility] Chloride [Moles/Vol] 88 mmol/L Low 98 - 10 7 mmol/L [facility] CO2 [Moles/Vol] 19 mmol/L Low 20 - 31 mmol/L [facility] Creatinine [Mass/Vol] 0.6 mg/dL Low 0.7 - 1.2 mg/dL [facility] [email or web address] Est, Glom Robertot Rate - PINF [facility] Comment on above: These results are not [...] [Mass/Vol] 86 mg/dL 74 - 99 mg/dL [facility] Interpretation and review of laboratory results Abnormal [facility] Potassium [Moles/Vol] 4.6 mmol/L 3.7 - 5.3 mmol/L [facility] [email or web address] Comment on above: Specimen hemolysis h as exceeded the interference as defined by Sindy. Value may be falsely increased. Suggest recollection if clinically indicated. Sodium [Moles/Vol] 119 mmol/L Critically low 136 - 1 45 mmol/L [facility] Urea nitrogen [Mass/Vol] 11 mg/dL 8 - 23 mg/dL [facility] Anion gap [Moles/Vol] 12 mmol/L 9 - 16 mmol/L [facility] Calcium [Mass/Vol] 8.7 mg/dL 8.6 - 10. 4 mg/dL [facility] Chloride [Moles/Vol] 88 mmol/L Low 98 - 10 7 mmol/L [facility] CO2 [Moles/Vol] 19 mmol/L Low 20 - 31 mmol/L [facility] Creatinine [Mass/Vol] 0.6 mg/dL Low 0.7 - 1.2 mg/dL [facility] Est, Glom Robertot Rate - [facility] Comment on above: These results are not [...] [Mass/Vol] 81 mg/dL 74 - 99 mg/dL [facility] Interpretation and review of laboratory results Abnormal [facility] Potassium [Moles/Vol] 4.1 mmol/L 3.7 - 5.3 mmol/L [facility] Comment on above: Specimen hemolysis h as exceeded the interference as defined by Sindy. Value may be falsely increased. Suggest recollection if clinically indicated. Sodium [Moles/Vol] 119 mmol/L Critically low 136 - 1 45 mmol/L [facility] Urea nitrogen [Mass/Vol] 11 mg/dL 8 - 23 mg/dL [facility] Anion gap [Moles/Vol] 11 mmol/L 9 - 16 mmol/L [facility] Calcium [Mass/Vol] 9 mg/dL 8.6 - 10. 4 mg/dL [facility] Chloride [Moles/Vol] 88 mmol/L Low 98 - 10 7 mmol/L [facility] CO2 [Moles/Vol] 21 mmol/L 20 - 31 mmol/L [facility] Creatinine [Mass/Vol] 0.6 mg/dL Low 0.7 - 1.2 mg/dL [facility] Est, Glom Filt Rate - PINF [facility] Comment [...] [Mass/Vol] 75 mg/dL 74 - 99 mg/dL [facility] Interpretation and review of laboratory results Abnormal [facility] Potassium [Moles/Vol] 4.3 mmol/L 3.7 - 5.3 mmol/L [facility] Sodium [Moles/Vol] 120 mmol/L Low 136 - 145 mmol/L [facility] Urea nitrogen [Mass/Vol] 11 mg/dL 8 - 23 mg/dL [facility] Anion gap [Moles/Vol] 14 mmol/L 9 - 16 mmol/L [facility] Calcium [Mass/Vol] 8.5 mg/dL Low 8.6 - 10. 4 mg/dL [facility] Chloride [Moles/Vol] 89 mmol/L Low 98 - 10 7 mmol/L [facility] CO2 [Moles/Vol] 17 mmol/L Low 20 - 31 mmol/L [facility] Creatinine [Mass/Vol] 0.6 mg/dL Low 0.7 - 1.2 mg/dL [facility] EstJesu Rate - PINF [facility] Comment [...] [Mass/Vol] 76 mg/dL 74 - 99 mg/dL [facility] Interpretation and review of laboratory results Abnormal [facility] Potassium [Moles/Vol] 4.4 mmol/L 3.7 - 5.3 mmol/L [facility] Comment on above: Specimen hemolysis h as exceeded the interference as defined by Sindy. Value may be falsely increased. Suggest recollection if clinically indicated. Sodium [Moles/Vol] 120 mmol/L Low 136 - 145 mmol/L [facility] Urea nitrogen [Mass/Vol] 11 mg/dL 8 - 23 mg/dL [facility] Anion gap [Moles/Vol] 15 mmol/L 9 - 16 mmol/L [facility] Calcium [Mass/Vol] 8.6 mg/dL 8.6 - 10. 4 mg/dL [facility] Chloride [Moles/Vol] 86 mmol/L Low 98 - 10 7 mmol/L [facility] CO2 [Moles/Vol] 16 mmol/L Low 20 - 31 mmol/L [facility] Creatinine [Mass/Vol] 0.7 mg/dL 0.7 - 1.2 mg/dL [facility] Est, Jesu Michele Rate - PINF [facility] Comment [...] [Mass/Vol] 90 mg/dL 74 - 99 mg/dL [facility] Interpretation and review of laboratory results Abnormal [facility] Potassium [Moles/Vol] 4.1 mmol/L 3.7 - 5.3 mmol/L [facility] Comment on above: Specimen hemolysis h as exceeded the interference as defined by Sindy. Value may be falsely increased. Suggest recollection if clinically indicated. Sodium [Moles/Vol] 117 mmol/L Critically low 136 - 1 45 mmol/L [facility] Urea nitrogen [Mass/Vol] 12 mg/dL 8 - 23 mg/dL [facility] CALCIUM, IONIC (POC)on 06-04 Calcium.ionized (Bld) [Moles/Vol] 1.18 mmol/L 1.15 - 1.33 mmol/L [facility] CT HEAD WO CONTRASTon 2024 CT [...] Dixon Crockett MD 06/04/25 Final result Normal [facility] CT Head WO contraston 2024 1. No acute intracranial abnormality. 2. Acute right maxillary sinusitis. [facility] EXAMINATION: CT OF THE [...] cells. SOFT TISSUES/SKULL: The calvarium is intact. [facility] Dixon Crockett MD - [...] intracranial abnormality. 2. Acute right maxillary sinusitis. [facility] Radiology Study observation (narrative) [facility] CT Head WO contrastOrdered B y: Dixon Crockett on 06-04-2025 [facility] Work Phone: Calcium, Ionic (POC)on 06-04 Calcium [Moles/Vol] 1.18 mmol/L Normal 1.15-1.33 [facility] Cortisolon 06-04-2025 Cortisol 11.7 ug/dL Normal 2.5-19.5 [facility] Comment on above: Result Comment: Cortisol Reference Range: AM 6.0-18.4 PM 2.7-10.5 Performed By: #### O SMO #### [facility] [address] [place] [address] Intelligence Engineer: Pankaj Cordoba MD Cortisol Totalon 06-04-2025 Cortisol [Mass/Vol] 11.7 ug/dL 2.5 - 19 .5 ug/dL [facility] Comment on above: Cortisol Reference Range: AM 6.0-18.4 PM 2.7-10.5 Creatinine W/GFR Point of Ca reon 06-04-2025 Creatinine [Mass/Vol] 0.7 mg/dL 0.51 - 1.19 mg/dL [facility] eGFR, POC - PINF [facility] Comment on above: These results are [...] 05-15 Creatinine [Mass/Vol] 0.7 mg/dL Normal 0.51-1.19 [facility] GFR/1.73 sq M.predicted among non-blacks MDRD (S/P/Bld) [Vol rate/Area] mL/min/{1.73_m2} Normal >60 [facility] Comment on above: Result Comment: [...] [Moles/Vol] 12 mmol/L 7 - 16 mmol/L [facility] Chloride [Moles/Vol] 89 mmol/L Low 98 - 10 7 mmol/L [facility] CO2 Calc (Bld) [Moles/Vol] 23 mmol/L 22 - 30 mmol/L [facility] Potassium [Moles/Vol] 3.9 mmol/L 3.5 - 4.5 mmol/L [facility] Sodium [Moles/Vol] 123 mmol/L Low 138 - 146 mmol/L [facility] Electrolyte Panelon 06-04-20 25 Anion gap [Moles/Vol] 9 mmol/L 9 - 16 mmol/L [facility] Chloride [Moles/Vol] 91 mmol/L Low 98 - 10 7 mmol/L [facility] [email or web address] CO2 [Moles/Vol] 21 mmol/L 20 - 31 mmol/L [facility] Interpretation and review of laboratory results Abnormal [facility] Potassium [Moles/Vol] 4.3 mmol/L 3.7 - 5.3 mmol/L [facility] Sodium [Moles/Vol] 121 mmol/L Low 136 - 145 mmol/L [facility] CenterFinderly [facility] CenterSt[facility] Anion gap [Moles/Vol] 12 mmol/L 9 - 16 mmol/L [facility] [employer] Chloride [Moles/Vol] 90 mmol/L Low 98 - 10 7 mmol/L [facility] CO2 [Moles/Vol] 20 mmol/L 20 - 31 mmol/L [facility] Interpretation and review of laboratory results Abnormal [facility] Potassium [Moles/Vol] 4.3 mmol/L 3.7 - 5.3 mmol/L [facility] Sodium [Moles/Vol] 122 mmol/L Low 136 - 145 mmol/L [facility] Anion gap [Moles/Vol] 11 mmol/L 9 - 16 mmol/L [facility] Chloride [Moles/Vol] 88 mmol/L Low 98 - 10 7 mmol/L [facility] CO2 [Moles/Vol] 19 mmol/L Low 20 - 31 mmol/L [facility] Interpretation and review of laboratory results Abnormal [facility] Potassium [Moles/Vol] 4.5 mmol/L 3.7 - 5.3 mmol/L [facility] Sodium [Moles/Vol] 118 mmol/L Critically low 136 - 1 45 mmol/L [facility] Electrolyteson 06-04-2025 Anion gap [Moles/Vol] 9 mmol/L Normal 9-16 [facility] Comment on above: Performed By: #### O SMO #### [place] [address] Intelligence Engineer: Pankaj Cordoba MD Chloride [Moles/Vol] 91 mmol/L Low 98-107 [facility] Comment on above: Performed By: #### O SMO #### [facility] [address] [place], [place] [phone] Intelligence Engineer: Pankaj Cordoba MD CO2 [Moles/Vol] 21 mmol/L Normal 20-31 [facility] Comment on above: Performed By: #### O SMO #### [facility] [address] [place], [place] [phone] Intelligence Engineer: Pankaj Cordoba MD Potassium [Moles/Vol] 4.3 mmol/L Normal 3.7-5.3 [facility] Comment on above: Performed By: #### O SMO #### [facility] [address] [place], [place] [address], [place] [address] Intelligence Engineer: Pankaj Cordoba MD Sodium [Moles/Vol] 121 mmol/L Low 136-145 [facility] Comment on above: Performed By: #### O SMO #### [facility] [address] [place] [address] Intelligence Engineer: Pankaj Cordoba MD Anion gap [Moles/Vol] 12 mmol/L Normal 9-16 [facility] Comment on above: Performed By: #### L YTE ####[address] [phone] Director: Pankaj Cordoba MD Chloride [Moles/Vol] 90 mmol/L Low 98-107 [facility] Comment on above: Performed By: #### L YTE ####[address] [phone] Director: Pankaj Cordoba MD CO2 [Moles/Vol] 20 mmol/L Normal 20-31 [facility] Comment on above: Performed By: #### L YTE ####[address] [address] Lab Director: Pankaj Cordoba MD Potassium [Moles/Vol] 4.3 mmol/L Normal 3.7-5.3 [facility] Comment on above: Performed By: #### L YTE ####[address] [phone] Director: Pankaj Cordoba MD Sodium [Moles/Vol] 122 mmol/L Low 136-145 [facility] Comment on above: Performed By: #### L YTE ####[address] [phone] Director: Pankaj Cordoba MD Anion gap [Moles/Vol] 11 mmol/L Normal 9-16 [facility] Comment on above: Performed By: #### O SMO #### [facility] [address] [place] [address] Intelligence Engineer: Pankaj Cordoba MD Chloride [Moles/Vol] 88 mmol/L Low 98-107 [facility] Comment on above: Performed By: #### O SMO #### [address] [phone] Intelligence Engineer: Pankaj Cordoba MD CO2 [Moles/Vol] 19 mmol/L Low 20-31 [facility] Comment on above: Performed By: #### O SMO #### [address] [address] Intelligence Engineer: Pankaj Cordoba MD Potassium [Moles/Vol] 4.5 mmol/L Normal 3.7-5.3 [facility] Comment on above: Performed By: #### O SMO #### [address] [address] Intelligence Engineer: Pankaj Cordoba MD Sodium [Moles/Vol] 118 mmol/L Critically low 136-145 [facility] Comment on above: Performed By: #### O SMO #### [address] [address] Intelligence Engineer: Pankaj Cordoba MD Anion gap [Moles/Vol] 12 mmol/L Normal 7-16 [facility] Chloride [Moles/Vol] 89 mmol/L Low 98-107 [facility] CO2 [Moles/Vol] 23 mmol/L Normal 22-30 [facility] Potassium [Moles/Vol] 3.9 mmol/L Normal 3.5-4.5 [facility] Sodium [Moles/Vol] 123 mmol/L Low 138-146 [facility] Glucose (POC)on 06-04-2025 Glucose [Mass/Vol] 81 mg/dL Normal 74-100 [facility] Glucose,Whole Bloodon 2024 Glucose [Mass/Vol] 119 mg/dL High 75-110 [facility] Glucose [Mass/Vol] 96 mg/dL Normal 75-110 [facility] Glucose [Mass/Vol] 117 mg/dL High 75-110 [facility] Glucose [Mass/Vol] 93 mg/dL Normal 75-110 [facility] Glucose [Mass/Vol] 76 mg/dL Normal 75-110 [facility] Hemoglobin and hematocrit, b loodon 06-04-2025 Hematocrit (Bld) [Volume fraction] 36 % Low 41 - 53 % [facility] Hemoglobin (Bld) [Mass/Vol] 12.3 g/dL Low 13.5 - 17.5 g/dL [facility] Hgb/Hct, POCon 06-04-2025 Hematocrit (Bld) [Volume fraction] 36 % Low 41-53 [facility] Hemoglobin (Bld) [Mass/Vol] 12.3 g/dL Low 13.5-17.5 [facility] Lactic Acid (POC)on 06-04-20 25 Lactate [Moles/Vol] 0.8 mmol/L Normal 0.56-1.39 [facility] Lactic Acid, POCon 5 POC Lactic Acid 0.8 mmol/L 0.56 - 1.39 mmol/L [facility] No Panel Informationon 06-04 [facility] Interpretation and review of laboratory results Abnormal [facility] Osmolality, Urineon 06-04-20 25 Osmolality (U) [Osmolality] 590 mosm/kg [facility] Osmolality - Urine 590 mOsm/kg Normal 80-1300 [facility] Comment on above: Performed By: #### U RNA, UOSMO ####[facility] [address] [place] [address] lab Director: Pankaj Cordoba MD POC Glucose Fingerstickon Glucose [Mass/Vol] 119 mg/dL High 75 - 110 mg/dL [facility] Interpretation and review of laboratory results Abnormal [facility] Glucose [Mass/Vol] 96 mg/dL 75 - 110 mg/dL [facility] Glucose [Mass/Vol] 117 mg/dL High 75 - 110 mg/dL [facility] Interpretation and review of laboratory results Abnormal [facility] Glucose [Mass/Vol] 93 mg/dL 75 - 110 mg/dL [facility] Glucose [Mass/Vol] 76 mg/dL 75 - 110 mg/dL [facility] POCT Glucoseon 06-04-2025 Glucose [Mass/Vol] 81 mg/dL 74 - 100 mg/dL [facility] POCT urea (BUN)on 06-04-2025 Urea nitrogen [Mass/Vol] 11 mg/dL 8 - 26 mg/dL [facility] PTon 06-04-2025 INR Coag (PPP) [Relative time] 1.8 {INR} Normal [facility] Comment on above: Result Comment: Therapeutic Range: Moderate Anticoagulant Intensity: INR = 2.0-3.0 High Anticoagulant Intensity: INR = 2.5-3.5 Performed By: #### P T #### [facility] [address] [place], [place] [phone] Intelligence Engineer: Pankaj Cordoba MD PT Coag (PPP) [Time] 21.4 s High 11.7-14.9 [facility] Comment on above: Performed By: #### P T #### [facility] [address] [place] [id number] Intelligence Engineer: Pankaj Cordoba MD Protime-INRon 06-04-2025 INR Coag (PPP) [Relative time] 1.8 {INR} [facility] Comment on above: Therapeutic Range: Moderate Anticoagulant Intensity: INR = 2.0-3.0 High Anticoagulant Intensity: INR = 2.5-3.5 Interpretation and review of laboratory results Abnormal [facility] PT Coag (PPP) [Time] 21.4 s High [facility] Sodium, Random Uron 06-04-20 25 Sodium (U) [Moles/Vol] 159 mmol/L Normal [facility] Comment on above: No normal range esta blished. Result Comment: No n ormal range established. Performed By: #### U RNA, UOSMO ####[facility] [address] [place], [place] [id number] Lab Director: Pankaj Cordoba MD Sodium, urine, randomon 05-15 [facility] T4, Freeon 06-04-2025 Free T4 [Mass/Vol] 1.5 ng/dL 0.92 - 1. 68 ng/dL [facility] TSHon 06-04-2025 TSH Qn 2.95 m[IU]/L [facility] Thyroid Stim. Horm.on 2024 Thyroid Stim. Horm. 2.95 uIU/mL Normal 0.27-4.20 [facility] Comment on above: Performed By: #### O SMO #### [facility] [employer] [address] [place] [address] Intelligence Engineer: Pankaj Cordoba MD Thyroxine, Freeon 06-04-2025 Thyroxine, Free 1.5 ng/dL Normal 0.92-1.68 [facility] Comment on above: Performed By: #### O SMO #### [facility] [employer] [address] [place] [address] Intelligence Engineer: Pankaj Cordoba MD Basic Metab w/rfx MGon 06-03 Anion gap [Moles/Vol] 11 mmol/L Normal 9-16 [facility] Comment on above: Performed By: #### O SMO #### [facility] [employer] [address] [place] [phone] Intelligence Engineer: Pankaj Cordoba MD Calcium [Mass/Vol] 9.0 mg/dL Normal 8.6-10.4 [facility] Comment on above: Performed By: #### O SMO #### [address] [address] Intelligence Engineer: Pankaj Cordoba MD Chloride [Moles/Vol] 90 mmol/L Low 98-107 [facility] Comment on above: Performed By: #### O SMO #### [facility] [address] [place] [phone] Intelligence Engineer: Pankaj Cordoba MD CO2 [Moles/Vol] 20 mmol/L Normal 20-31 [facility] Comment on above: Performed By: #### O SMO #### [address] [phone] Intelligence Engineer: Pankaj Cordoba MD Creatinine [Mass/Vol] 0.7 mg/dL Normal 0.7-1.2 [facility] Comment on above: Performed By: #### O SMO #### [address] [address] Intelligence Engineer: Pankaj Cordoba MD GFR/1.73 sq M.predicted among non-blacks MDRD (S/P/Bld) [Vol rate/Area] mL/min/{1.73_m2} Normal >60 [facility] Comment on above: Result Comment: [...] secretion. Performed By: #### O SMO #### [address] [address] Intelligence Engineer: Pankaj Cordoba MD Glucose [Mass/Vol] 107 mg/dL High 74-99 [facility] Comment on above: Performed By: #### O SMO #### [address] [phone] Intelligence Engineer: Pankaj Cordoba MD Potassium [Moles/Vol] 4.8 mmol/L Normal 3.7-5.3 [facility] Comment on above: Result Comment: Spec imen hemolysis has exceeded the interference as defined by Sindy. Value may be falsely increased. Suggest recollection if clinically indicated. Performed By: #### O SMO #### [employer] [address] [place], [place] [id number] Intelligence Engineer: Pankaj Cordoba MD Sodium [Moles/Vol] 121 mmol/L Low 136-145 [facility] Comment on above: Performed By: #### O SMO #### [employer] [facility] [place], [place] [phone] Intelligence Engineer: Pankaj Cordoba MD Urea nitrogen [Mass/Vol] 13 mg/dL Normal 8-23 [facility] Comment on above: Performed By: #### O SMO #### [email or web address] [place] [address] Intelligence Engineer: Pankaj Cordoba MD Basic Metabolic Panel w/ Ref maura to MGon 06-03-2025 Anion gap [Moles/Vol] 11 mmol/L 9 - 16 mmol/L [facility] Calcium [Mass/Vol] 9 mg/dL 8.6 - 10. 4 mg/dL [facility] Chloride [Moles/Vol] 90 mmol/L Low 98 - 10 7 mmol/L [facility] CO2 [Moles/Vol] 20 mmol/L 20 - 31 mmol/L [facility] Creatinine [Mass/Vol] 0.7 mg/dL 0.7 - 1.2 mg/dL [facility] Est, Glom Filt Rate - PINF [facility] Comment [...] 107 mg/dL High 74 - 99 mg/dL [facility] Interpretation and review of laboratory results Abnormal [facility] Potassium [Moles/Vol] 4.8 mmol/L 3.7 - 5.3 mmol/L [facility] Comment on above: Specimen hemolysis h as exceeded the interference as defined by Sindy. Value may be falsely increased. Suggest recollection if clinically indicated. Sodium [Moles/Vol] 121 mmol/L Low 136 - 145 mmol/L [facility] Urea nitrogen [Mass/Vol] 13 mg/dL 8 - 23 mg/dL [facility] CBC with Auto Differentialon 06-03-2025 Basophils (Bld) [#/Vol] 0.04 10*3/uL [facility] Basophils/100 WBC (Bld) 1 % 0 - 2 % [facility] Eosinophils (Bld) [#/Vol] 0.08 10*3/uL [facility] Eosinophils/100 WBC (Bld) 1 % 1 - 4 % [facility] Erythrocyte distribution width (RBC) [Ratio] 13 % 11.8 - 14.4 % [facility] Hematocrit (Bld) [Volume fraction] 35.2 % Low 40.7 - 50.3 % [facility] Hemoglobin (Bld) [Mass/Vol] 12.3 g/dL Low 13.0 - 17.0 g/dL [facility] Immature granulocytes (Bld) [#/Vol] [facility] Immature granulocytes/100 WBC (Bld) 0 % 0 [facility] Interpretation and review of laboratory results Abnormal [facility] Lymphocytes/100 WBC (Bld) 23 % Low 24 - 43 % [facility] Lymphocytes/100 WBC (Bld) 1.68 % [facility] MCH (RBC) [Entitic mass] 30.9 pg 25.2 - 33.5 pg [facility] MCHC (RBC) [Mass/Vol] 34.9 g/dL High 28.4 - 34.8 g/dL [facility] MCV (RBC) [Entitic vol] 88.4 fL 82.6 - 102.9 fL [facility] Monocytes/100 WBC (Bld) 11 % 3 - 12 % [facility] Monocytes/100 WBC (Bld) 0.8 % [facility] Neutrophils/100 WBC (Bld) 64 % 36 - 65 % [facility] Nucleated RBC/100 WBC (Bld) [Ratio] 0 % 0.0 per 100 WBC [facility] [email or web address] Platelet, Fluorescence 132 Low [employer] [facility] Platelets (Bld) [#/Vol] See Reflexed IPF Result [facility] [email or web address] Platelets reticulated/100 platelets Auto (Bld) 5.3 % 1.1 - 10.3 % [facility] RBC (Bld) [#/Vol] 3.98 10*6/uL Low 4.21 - 5.7 7 m/uL [facility] [email or web address] Segmented neutrophils/100 WBC (Bld) 4.63 % [facility] WBC other (Bld) [#/Vol] 7.2 [facility] CBC with Diffon 06-03-2025 Abs. Basophil 0.04 k/uL Normal 0.00-0.20 [facility] Comment on above: Performed By: #### O SMO #### [facility] [employer] [address] [place] [address] Intelligence Engineer: Pankaj Cordoba MD Abs.Imm.Granulocyte <0.03 Normal 0.00-0.30 [facility] Comment on above: Performed By: #### O SMO #### [facility] [employer] [address] [place] [address] Intelligence Engineer: Pankaj Cordoba MD Abs.Neutrophil (Seg) 4.63 k/uL Normal 1.50-8.10 [facility] Comment on above: Performed By: #### O SMO #### [facility] [employer] [address] [place] [address] Intelligence Engineer: Pankaj Cordoba MD Basophils/100 WBC (Bld) 1 % Normal 0-2 [facility] Comment on above: Performed By: #### O SMO #### [address] [address] Intelligence Engineer: Pankaj Cordoba MD Eosinophils (Bld) [#/Vol] 0.08 10*3/uL Normal 0.00-0.44 [facility] Comment on above: Performed By: #### O SMO #### [address] [address] Intelligence Engineer: Pankaj Cordoba MD Eosinophils/100 WBC (Bld) 1 % Normal 1-4 [facility] Comment on above: Performed By: #### O SMO #### [address] [address] Intelligence Engineer: Pankaj Cordoba MD Erythrocyte distribution width (RBC) [Ratio] 13.0 % Normal 11.8-14.4 [facility] Comment on above: Performed By: #### O SMO #### [address] [address] Intelligence Engineer: Pankaj Cordoba MD Hematocrit (Bld) [Volume fraction] 35.2 % Low 40.7-50.3 [facility] Comment on above: Performed By: #### O SMO #### [address] [address] Intelligence Engineer: Pankaj Cordoba MD Hemoglobin (Bld) [Mass/Vol] 12.3 g/dL Low 13.0-17.0 [facility] Comment on above: Performed By: #### O SMO #### [address] [address] Intelligence Engineer: Pankaj Cordoba MD Immature granulocytes/100 WBC (Bld) 0 % Normal 0 [facility] Comment on above: Performed By: #### O SMO #### [address] [address] Intelligence Engineer: Pankaj Cordoba MD Lymphocytes (Bld) [#/Vol] 1.68 10*3/uL Normal 1.10-3.70 [facility] Comment on above: Performed By: #### O SMO #### [address] [address] Intelligence Engineer: Pankaj Cordoba MD Lymphocytes/100 WBC (Bld) 23 % Low 24-43 [facility] Comment on above: Performed By: #### O SMO #### [address] [address] Intelligence Engineer: Pankaj Cordoba MD MCH (RBC) [Entitic mass] 30.9 pg Normal 25.2-33.5 [facility] Comment on above: Performed By: #### O SMO #### [address] [address] Intelligence Engineer: Pankaj Cordoba MD MCHC (RBC) [Mass/Vol] 34.9 g/dL High 28.4-34.8 [facility] Comment on above: Performed By: #### O SMO #### [address] [address] Intelligence Engineer: Pankaj Cordoba MD MCV (RBC) [Entitic vol] 88.4 fL Normal 82.6-102.9 [facility] Comment on above: Performed By: #### O SMO #### [address] [address] Intelligence Engineer: Pankaj Cordoba MD Monocytes (Bld) [#/Vol] 0.80 10*3/uL Normal 0.10-1.20 [facility] Comment on above: Performed By: #### O SMO #### [address] [address] Intelligence Engineer: Pankaj Cordoba MD Monocytes/100 WBC (Bld) 11 % Normal 3-12 [facility] Comment on above: Performed By: #### O SMO #### [address] [address] Intelligence Engineer: Pankaj Cordoba MD Neutrophil (Seg) 64 % Normal 36-65 [facility] Comment on above: Performed By: #### O SMO #### [address] [address] Intelligence Engineer: Pankaj Cordoba MD NRBC Automated 0.0 per 100 WBC Normal 0.0 [facility] Comment on above: Performed By: #### O SMO #### [address] [address] Intelligence Engineer: Pankaj Cordoba MD Platelet Count See Reflexed IPF Result Normal 138-453 [facility] Comment on above: Performed By: #### O SMO #### [address] [address] Intelligence Engineer: Pankaj Cordoba MD Platelet, Fluoresc. 132 k/uL Low 138-453 [facility] Comment on above: Performed By: #### O SMO #### [address] [address] Intelligence Engineer: Pankaj Cordoba MD PLT, Immature Fract. 5.3 % Normal 1.1-10.3 [facility] Comment on above: Performed By: #### O SMO #### [address] [address] Intelligence Engineer: Pankaj Cordoba MD RBC (Bld) [#/Vol] 3.98 10*6/uL Low 4.21-5.77 [facility] Comment on above: Performed By: #### O SMO #### [address] [address] Intelligence Engineer: Pankaj Cordoba MD WBC (Bld) [#/Vol] 7.2 10*3/uL Normal 3.5-11.3 [facility] Comment on above: Performed By: #### O SMO #### [email or web address] [place], [place] [phone] Intelligence Engineer: Pankaj Cordoba MD Electrolyte Panelon 06-03-20 Anion gap [Moles/Vol] 14 mmol/L 9 - 16 mmol/L [facility] Chloride [Moles/Vol] 86 mmol/L Low 98 - 10 7 mmol/L [facility] CO2 [Moles/Vol] 17 mmol/L Low 20 - 31 mmol/L [facility] Interpretation and review of laboratory results Abnormal [facility] Potassium [Moles/Vol] 4.4 mmol/L 3.7 - 5.3 mmol/L [facility] Comment on above: Specimen hemolysis h as exceeded the interference as defined by Sindy. Value may be falsely increased. Suggest recollection if clinically indicated. Sodium [Moles/Vol] 117 mmol/L Critically low 136 - 1 45 mmol/L [facility] Anion gap [Moles/Vol] 12 mmol/L 9 - 16 mmol/L [facility] Chloride [Moles/Vol] 89 mmol/L Low 98 - 10 7 mmol/L [facility] CO2 [Moles/Vol] 19 mmol/L Low 20 - 31 mmol/L [facility] [place] [facility] Interpretation and review of laboratory results Abnormal [facility] Potassium [Moles/Vol] 4.5 mmol/L 3.7 - 5.3 mmol/L [facility] Comment on above: Specimen hemolysis h as exceeded the interference as defined by Sindy. Value may be falsely increased. Suggest recollection if clinically indicated. Sodium [Moles/Vol] 120 mmol/L Low 136 - 145 mmol/L [facility] Electrolyteson 06-03-2025 Anion gap [Moles/Vol] 14 mmol/L Normal 9-16 [facility] Comment on above: Performed By: #### L YTE ####[email or web address] [place], [place] [id number] Lab Director: Pankaj Cordoba MD Chloride [Moles/Vol] 86 mmol/L Low 98-107 [facility] Comment on above: Performed By: #### L YTE ####[facility] [address] [place], [place] [phone] Director: Pankaj Cordoba MD CO2 [Moles/Vol] 17 mmol/L Low 20-31 [facility] Comment on above: Performed By: #### L YTE ####[facility] [address] [place], [place] [phone] Director: Pankaj Cordoba MD Potassium [Moles/Vol] 4.4 mmol/L Normal 3.7-5.3 [facility] Comment on above: Result Comment: Spec imen hemolysis has exceeded the interference as defined by Sindy. Value may be falsely increased. Suggest recollection if clinically indicated. Performed By: #### L YTE ####[facility] [address] [place], [place] [phone] Director: Pankaj Cordoba MD Sodium [Moles/Vol] 117 mmol/L Critically low 136-145 [facility] Comment on above: Performed By: #### L YTE ####[facility] [address] [place] [address] Lab Director: Pankaj Cordoba MD Anion gap [Moles/Vol] 12 mmol/L Normal 9-16 [facility] Comment on above: Performed By: #### L YTE ####[facility] [address] [place], [place] [phone] Director: Pankaj Cordoba MD Chloride [Moles/Vol] 89 mmol/L Low 98-107 [facility] Comment on above: Performed By: #### L YTE ####[facility] [address] [place] [address] Lab Director: Pankaj Cordoba MD CO2 [Moles/Vol] 19 mmol/L Low 20-31 [facility] Comment on above: Performed By: #### L YTE ####[employer] [address] [place] [address] Lab Director: Pankaj Cordoba MD Potassium [Moles/Vol] 4.5 mmol/L Normal 3.7-5.3 [facility] Comment on above: Result Comment: Spec imen hemolysis has exceeded the interference as defined by Sindy. Value may be falsely increased. Suggest recollection if clinically indicated. Performed By: #### L YTE ####[email or web address] [place] [address] Lab Director: Pankaj Cordoba MD Sodium [Moles/Vol] 120 mmol/L Low 136-145 [facility] Comment on above: Performed By: #### L YTE ####[email or web address] [place] [address] Lab Director: Pankaj Cordoba MD Glucose,Whole Bloodon 2024 Glucose [Mass/Vol] 92 mg/dL Normal 75-110 [facility] Glucose [Mass/Vol] 98 mg/dL Normal 75-110 [facility] Glucose [Mass/Vol] 124 mg/dL High 75-110 [facility] Glucose [Mass/Vol] 117 mg/dL High 75-110 [facility] Osmolalityon 06-03-2025 Interpretation and review of laboratory results Abnormal [facility] [email or web address] Osmolality [Osmolality] 251 mosm/kg Low [facility] [email or web address] [facility] Osmolality [Osmolality] 251 mosm/kg Low 275-295 [facility] Comment on above: Performed By: #### O SMO #### [email or web address] [place], [place] [phone] Intelligence Engineer: Pankaj Cordoba MD POC Glucose Fingerstickon Glucose [Mass/Vol] 92 mg/dL 75 - 110 mg/dL [facility] [facility] Glucose [Mass/Vol] 98 mg/dL 75 - 110 mg/dL [facility] Glucose [Mass/Vol] 124 mg/dL High 75 - 110 mg/dL [facility] Interpretation and review of laboratory results Abnormal [facility] Glucose [Mass/Vol] 117 mg/dL High 75 - 110 mg/dL [facility] Interpretation and review of laboratory results Abnormal [facility] PREVIOUS SPECIMENon 06-03-20 25 [facility] PTon 06-03-2025 INR Coag (PPP) [Relative time] 1.7 {INR} Normal [facility] Comment on above: Result Comment: Therapeutic Range: Moderate Anticoagulant Intensity: INR = 2.0-3.0 High Anticoagulant Intensity: INR = 2.5-3.5 Performed By: #### O SMO #### [email or web address] [place], [place] [id number] Intelligence Engineer: Pankaj Cordoba MD PT Coag (PPP) [Time] 20.3 s High 11.7-14.9 [facility] Comment on above: Performed By: #### O SMO #### [email or web address] [place], [place] [phone] Intelligence Engineer: Pankaj Cordoba MD Protime-INRon 06-03-2025 INR Coag (PPP) [Relative time] 1.7 {INR} [facility] Comment on above: Therapeutic Range: Moderate Anticoagulant Intensity: INR = 2.0-3.0 High Anticoagulant Intensity: INR = 2.5-3.5 Interpretation and review of laboratory results Abnormal [facility] PT Coag (PPP) [Time] 20.3 s High [facility] Basic Metab w/rfx MGon 06-02 Anion gap [Moles/Vol] 13 mmol/L Normal 9-16 [facility] Comment on above: Performed By: #### B MPX, PT, CDP ####[email or web address] [place], [place] [phone] Lab Director: Pankaj Cordoba MD Calcium [Mass/Vol] 9.1 mg/dL Normal 8.6-10.4 [facility] Comment on above: Performed By: #### B MPX, PT, CDP ####[facility] [address] [place] [address] [phone] Director: Pankaj Cordoba MD Chloride [Moles/Vol] 96 mmol/L Low 98-107 [facility] Comment on above: Performed By: #### B MPX, PT, CDP ####[facility] [address] [place], [place] [phone] Director: Pankaj Cordoba MD CO2 [Moles/Vol] 20 mmol/L Normal 20-31 [facility] Comment on above: Performed By: #### B MPX, PT, CDP ####[address] [phone] Director: Pankaj Cordoba MD Creatinine [Mass/Vol] 0.8 mg/dL Normal 0.7-1.2 [facility] Comment on above: Performed By: #### B MPX, PT, CDP ####[address] [phone] Director: Pankaj Cordoba MD GFR/1.73 sq M.predicted among non-blacks MDRD (S/P/Bld) [Vol rate/Area] 88 mL/min/{1.73_m2} Normal >60 [facility] Comment on above: Result Comment: [...] By: #### B MPX, PT, CDP ####[facility] [address] [place] [address] Lab Director: Pankaj Cordoba MD Glucose [Mass/Vol] 117 mg/dL High 74-99 [facility] Comment on above: Performed By: #### B MPX, PT, CDP ####[facility] [address] [place] [address] lab Director: Pankaj Cordoba MD Potassium [Moles/Vol] 4.7 mmol/L Normal 3.7-5.3 [facility] Comment on above: Performed By: #### B MPX, PT, CDP ####[facility] [address] [place] [address] lab Director: Pankaj Cordoba MD Sodium [Moles/Vol] 129 mmol/L Low 136-145 [facility] Comment on above: Performed By: #### B MPX, PT, CDP ####[facility] [address] [place] [address] lab Director: Pankaj Cordoba MD Urea nitrogen [Mass/Vol] 16 mg/dL Normal 8-23 [facility] Comment on above: Performed By: #### B MPX, PT, CDP ####[facility] [address] [place] [address] lab Director: Pankaj Cordoba MD Basic Metabolic Panel w/ Ref maura to MGon 06-02-2025 Anion gap [Moles/Vol] 13 mmol/L 9 - 16 mmol/L [facility] Calcium [Mass/Vol] 9.1 mg/dL 8.6 - 10. 4 mg/dL [facility] Chloride [Moles/Vol] 96 mmol/L Low 98 - 10 7 mmol/L [facility] CO2 [Moles/Vol] 20 mmol/L 20 - 31 mmol/L [facility] Creatinine [Mass/Vol] 0.8 mg/dL 0.7 - 1.2 mg/dL [facility] Est, Glom Filt Rate 88 - PINF [facility] Comment on above: These results [...] 117 mg/dL High 74 - 99 mg/dL [facility] Interpretation and review of laboratory results Abnormal [facility] Potassium [Moles/Vol] 4.7 mmol/L 3.7 - 5.3 mmol/L [facility] Sodium [Moles/Vol] 129 mmol/L Low 136 - 145 mmol/L [facility] Urea nitrogen [Mass/Vol] 16 mg/dL 8 - 23 mg/dL [facility] CBC with Auto Differentialon 06-02-2025 Basophils (Bld) [#/Vol] 0.06 10*3/uL [facility] Basophils/100 WBC (Bld) 1 % 0 - 2 % [facility] Eosinophils (Bld) [#/Vol] 0.08 10*3/uL [facility] Eosinophils/100 WBC (Bld) 1 % 1 - 4 % [facility] Erythrocyte distribution width (RBC) [Ratio] 13.2 % 11.8 - 14.4 % [facility] Hematocrit (Bld) [Volume fraction] 36.5 % Low 40.7 - 50.3 % [facility] Hemoglobin (Bld) [Mass/Vol] 12.3 g/dL Low 13.0 - 17.0 g/dL [facility] Immature granulocytes (Bld) [#/Vol] [facility] Immature granulocytes/100 WBC (Bld) 0 % 0 [facility] Interpretation and review of laboratory results Abnormal [facility] Lymphocytes/100 WBC (Bld) 25 % 24 - 43 % [facility] Lymphocytes/100 WBC (Bld) 1.93 % [facility] MCH (RBC) [Entitic mass] 30.7 pg 25.2 - 33.5 pg [facility] MCHC (RBC) [Mass/Vol] 33.7 g/dL 28.4 - 34.8 g/dL [facility] MCV (RBC) [Entitic vol] 91 fL 82.6 - 102.9 fL [facility] Monocytes/100 WBC (Bld) 11 % 3 - 12 % [facility] Monocytes/100 WBC (Bld) 0.84 % [facility] Neutrophils/100 WBC (Bld) 62 % 36 - 65 % [facility] Nucleated RBC/100 WBC (Bld) [Ratio] 0 % 0.0 per 100 WBC [facility] Platelet mean volume (Bld) [Entitic vol] 11.3 fL 8.1 - 13.5 fL [facility] Platelets (Bld) [#/Vol] 147 10*3/uL [facility] RBC (Bld) [#/Vol] 4.01 10*6/uL Low 4.21 - 5.7 7 m/uL [facility] Segmented neutrophils/100 WBC (Bld) 4.88 % [facility] WBC other (Bld) [#/Vol] 7.8 [facility] CBC with Diffon 06-02-2025 Abs. Basophil 0.06 k/uL Normal 0.00-0.20 [facility] Comment on above: Performed By: #### B MPX, PT, CDP ####[employer] [address] [place] [address] Lab Director: Pankaj Cordoba MD Abs.Imm.Granulocyte <0.03 Normal 0.00-0.30 [facility] Comment on above: Performed By: #### B MPX, PT, CDP ####[employer] [address] [place] [phone] Lab Director: Pankaj Cordoba MD Abs.Neutrophil (Seg) 4.88 k/uL Normal 1.50-8.10 [facility] Comment on above: Performed By: #### B MPX, PT, CDP ####[facility] [address] [place], [place] [phone] Director: Pankaj Cordoba MD Basophils/100 WBC (Bld) 1 % Normal 0-2 [facility] Comment on above: Performed By: #### B MPX, PT, CDP ####[facility] [address] [place] [address] [phone] Director: Pankaj Cordoba MD Eosinophils (Bld) [#/Vol] 0.08 10*3/uL Normal 0.00-0.44 [facility] Comment on above: Performed By: #### B MPX, PT, CDP ####[address] [address])[phone] Director: Pankaj Cordoba MD Eosinophils/100 WBC (Bld) 1 % Normal 1-4 [facility] Comment on above: Performed By: #### B MPX, PT, CDP ####[address] [address])[phone] Director: Pankaj Cordoba MD Erythrocyte distribution width (RBC) [Ratio] 13.2 % Normal 11.8-14.4 [facility] Comment on above: Performed By: #### B MPX, PT, CDP ####[facility] [address] [place] [address])[phone] Director: Pankaj Cordoba MD Hematocrit (Bld) [Volume fraction] 36.5 % Low 40.7-50.3 [facility] Comment on above: Performed By: #### B MPX, PT, CDP ####[facility] [address] [place] [address])[phone] Director: Pankaj Cordoba MD Hemoglobin (Bld) [Mass/Vol] 12.3 g/dL Low 13.0-17.0 [facility] Comment on above: Performed By: #### B MPX, PT, CDP ####[facility] [address] [place] [address] Lab Director: Pankaj Cordoba MD Immature granulocytes/100 WBC (Bld) 0 % Normal 0 [facility] Comment on above: Performed By: #### B MPX, PT, CDP ####[facility] [address] [place] [address] Lab Director: Pankaj Cordoba MD Lymphocytes (Bld) [#/Vol] 1.93 10*3/uL Normal 1.10-3.70 [facility] Comment on above: Performed By: #### B MPX, PT, CDP ####[facility] [address] [place], [place] [address])[phone] Director: Pankaj Cordoba MD Lymphocytes/100 WBC (Bld) 25 % Normal 24-43 [facility] Comment on above: Performed By: #### B MPX, PT, CDP ####[facility] [address] [place], [place] [phone] Director: Pankaj Cordoba MD MCH (RBC) [Entitic mass] 30.7 pg Normal 25.2-33.5 [facility] Comment on above: Performed By: #### B MPX, PT, CDP ####[facility] [address] [place] [address] Lab Director: Pankaj Cordoba MD MCHC (RBC) [Mass/Vol] 33.7 g/dL Normal 28.4-34.8 [facility] Comment on above: Performed By: #### B MPX, PT, CDP ####[facility] [address] [place] [address] Lab Director: Pankaj Cordoba MD MCV (RBC) [Entitic vol] 91.0 fL Normal 82.6-102.9 [facility] Comment on above: Performed By: #### B MPX, PT, CDP ####[facility] [address] [place] [address] Lab Director: Pankaj Cordoba MD Monocytes (Bld) [#/Vol] 0.84 10*3/uL Normal 0.10-1.20 [facility] Comment on above: Performed By: #### B MPX, PT, CDP ####[facility] [address] [place], [place] [phone] Director: Pankaj Cordoba MD Monocytes/100 WBC (Bld) 11 % Normal 3-12 [facility] Comment on above: Performed By: #### B MPX, PT, CDP ####[facility] [address] [place], [place] [phone] Director: Pankaj Cordoba MD Neutrophil (Seg) 62 % Normal 36-65 [facility] Comment on above: Performed By: #### B MPX, PT, CDP ####[facility] [address] [place] [address])[phone] Director: Pankaj Cordoba MD NRBC Automated 0.0 per 100 WBC Normal 0.0 [facility] Comment on above: Performed By: #### B MPX, PT, CDP ####[facility] [address] [place], [place] [phone])[phone] Director: Pankaj Cordoba MD Platelet mean volume (Bld) [Entitic vol] 11.3 fL Normal 8.1-13.5 [facility] Comment on above: Performed By: #### B MPX, PT, CDP ####[facility] [address] [place], [place] [phone] Director: Pankaj Cordoba MD Platelets (Bld) [#/Vol] 147 10*3/uL Normal 138-453 [facility] Comment on above: Performed By: #### B MPX, PT, CDP ####[facility] [address] [place], [place] [phone] Director: Pankaj Cordoba MD RBC (Bld) [#/Vol] 4.01 10*6/uL Low 4.21-5.77 [facility] Comment on above: Performed By: #### B MPX, PT, CDP ####[employer] [address] [place], [place] [id number] lab Director: Pankaj Cordoba MD WBC (Bld) [#/Vol] 7.8 10*3/uL Normal 3.5-11.3 [facility] Comment on above: Performed By: #### B MPX, PT, CDP ####[employer] [address] [place] [address] lab Director: Pankaj Cordoba MD Glucose,Whole Bloodon 2024 Glucose [Mass/Vol] 127 mg/dL High 75-110 [facility] Glucose [Mass/Vol] 109 mg/dL Normal 75-110 [facility] Glucose [Mass/Vol] 110 mg/dL Normal 75-110 [facility] POC Glucose Fingerstickon Glucose [Mass/Vol] 127 mg/dL High 75 - 110 mg/dL [facility] Interpretation and review of laboratory results Abnormal [facility] Glucose [Mass/Vol] 109 mg/dL 75 - 110 mg/dL [facility] Glucose [Mass/Vol] 110 mg/dL 75 - 110 mg/dL [facility] PTon 06-02-2025 INR Coag (PPP) [Relative time] 1.9 {INR} Normal [facility] Comment on above: Result Comment: Therapeutic Range: Moderate Anticoagulant Intensity: INR = 2.0-3.0 High Anticoagulant Intensity: INR = 2.5-3.5 Performed By: #### B MPX, PT, CDP ####[employer] [address] [place], [place] [id number] lab Director: Pankaj Cordoba MD PT Coag (PPP) [Time] 22.2 s High 11.7-14.9 [facility] Comment on above: Performed By: #### B MPX, PT, CDP ####[facility] [address] [place] [id number] lab Director: Pankaj Cordoba MD Protime-INRon 06-02-2025 INR Coag (PPP) [Relative time] 1.9 {INR} [facility] Comment on above: Therapeutic Range: Moderate Anticoagulant Intensity: INR = 2.0-3.0 High Anticoagulant Intensity: INR = 2.5-3.5 Interpretation and review of laboratory results Abnormal [facility] [employer] PT Coag (PPP) [Time] 22.2 s High [facility] [employer] [facility] [employer] CHEMISTRYOrdered By: Christine Stevens on 05-20-2025 Albumin [...] (Bld) [Mass fraction] 5.6 % Normal <=5.9% [facility] [employer] [id number] 05-20-2025 HbA1c (Bld) [Mass fraction] 5.6 % Normal <=5.9 [facility] Comment on above: Performed By: #### 7 [id number] #### [facility] [address] [place] [address] Lipid Panelon 05-20-2025 Cholesterol [Mass/Vol] 150 mg/dL Normal 120-200 [facility] Comment on above: Performed By: #### 2 [id number] #### [facility] [address] [place] [address] Cholesterol in HDL [Mass/Vol] 57 mg/dL Invalid Interpretation Code [facility] Comment on above: Result Comment: '>= 60 LOW RISK' '<= 40 HIGH RISK' Performed By: #### 2 [id number] #### [facility] [address] [place] [address] Cholesterol in LDL [Mass/Vol] 77 mg/dL Normal <=129 [facility] Comment on above: Performed By: #### 2 [id number] #### [facility] [address] [place] [address] Cholesterol in VLDL [Mass/Vol] 11 mg/dL Normal 7-40 [facility] Comment on above: Performed By: #### 2 [id number] #### [facility] [address] [place] [address] Triglyceride [Mass/Vol] 53 mg/dL Normal <=149 [facility] Comment on above: Performed By: #### 2 [id number] #### [facility] [address] [place] [address] U MA/Cr Ratioon 05-20-2025 Microalb/Cr Ratio NOT CALCULATED Invalid Interpretation Code .0-30.0 [facility] Comment on above: Result Comment: 30-3 00 mg/g Cr indicates an increased risk for diabetic nephropathy. >300 mg/g Cr is consistent with clinical nephropathy. Performed By: #### 1 [id number] #### [facility] [address] [place] [address] U Creatinine 62.9 mg/dL Invalid Interpretation Code [facility] Comment on above: Performed By: #### 1 [id number] #### [facility] [address] [place] [address] U Microalb <0.7 Normal 0.0-1.9 [facility] Comment on above: Performed By: #### 1 [id number] #### [facility] [address] [place] [address] Ambulatory Visit Summaryon 0 05-09-2025 Ambulatory Visit [...] Appointments Tuesday 8:20 AM EDT With: Where: [address] [place] [address]- Tuesday 10:40 AM EDT With: YANIQUE MCNEILL CNP Where: [address] [place] [address]- Tuesday2025 8:00 AM EDT With: Where: [address] [place] [address]- You Need to Complete the Following HgbA1c, [...] Capsules By Mouth Every day Pickup at [facility] Unchanged Turmeric (Turmeric 500 mg oral capsule) 1 Capsules By Mouth Every day as needed for Prophylaxis Unchanged ubiquinone (CoQ10) See instructions Unchanged warfarin (warfarin 5 mg Tab) 1 Tablets By Mouth Every day Pharmacy Information [facility]: [address] [facility] [place] Cristobal [phone] Allergies No Known Medication Allergies Problems Ongoing [...] in a (more content not included)... Normal [facility] Family Medicine Office/Clini c Noteon 05-09-2025 [...] of clutter to prevent tripping and/or falling. [place] Advance Directives reviewed, at home. Encouraged to [...] patient requests, he will have completed at [facility] prior to next PCP [...] Voices understandin (more content not included)... Normal [facility] Comment on above: Result Comment: Elec [...] Follow-Up Appointments 2024 8:00 AM EDT Where: [place] [id number]- Medications What How Much When Instructions Unchanged [...] for choosing us for your care. Normal [facility] BMPon 02-05-2025 Anion gap [Moles/Vol] 8 mmol/L Normal 6-16 [facility] Comment on above: Performed By: #### 2 [id number] #### [facility] [address] [place] [address] Calcium [Mass/Vol] 8.8 mg/dL Low 8.9-11.1 [facility] Comment on above: Performed By: #### 2 [id number] #### [facility] [address] [place] [address] Chloride [Moles/Vol] 99 mmol/L Low 101-111 [facility] Comment on above: Performed By: #### 2 [id number] #### [facility] [address] [place] [address] CO2 [Moles/Vol] 28 mmol/L Normal 21-31 [facility] Comment on above: Performed By: #### 2 [id number] #### [facility] [address] [place] [address] Creatinine [Mass/Vol] 1.0 mg/dL Normal 0.5-1.3 [facility] Comment on above: Performed By: #### 2 [id number] #### [facility] [address] [place] [address] Glucose [Mass/Vol] 104 mg/dL Normal 55-199 [facility] Comment on above: Performed By: #### 2 [id number] #### [facility] [address] [place] [address] Potassium [Moles/Vol] 4.2 mmol/L Normal 3.5-5.3 [facility] Comment on above: Performed By: #### 2 [id number] #### [facility] [address] [place] [address] Sodium [Moles/Vol] 131 mmol/L Low 135-145 [facility] Comment on above: Performed By: #### 2 [id number] #### [facility] [address] [place] [address] Urea nitrogen [Mass/Vol] 13 mg/dL Normal 5-21 [facility] Comment on above: Performed By: #### 2 [id number] #### [facility] [address] [place] [address] Urea nitrogen/Creatinine [Mass ratio] 13 No Units Normal 10-20 [facility] Comment on above: Performed By: #### 2 [id number] #### [facility] [address] [place] [address] CHEMISTRYOrdered By: SYSTEM SYSTEM on 02-05-2025 Anion [...] reports as effective. Ongoing follow-up with a liquefier is planned for later in February. The [...] confirmation of an upcoming appointment with a liquefier later in February to further assess their [...] mcg(0.025 mg) (more content not included)... Normal [facility] Comment on above: Result Comment: Elec tronically Signed By: Adam COHN, Edwin Lopez.br\Date and Time Signed: 02/05/25 13:47 EDT eGFRon 02-05-2025 eGFR 75 mL/min/1.73 m2 Normal >=59 [facility] Comment on above: Performed By: #### 1 [id number] #### [facility] [address] [place] [address] Ambulatory Visit Summaryon 0 01-24-2025 Ambulatory Visit [...] PM EDT With: Edwin Garcia MD Where: [address] [address]- 2024 8:00 AM EDT With: Where: [address] [id number]- Medications What How Much When Instructions Changed sodium chloride (Sodium Chloride 1 g oral tablet) See instructions 1 gram orally BID Pickup at [facility] Unchanged atenolol (atenolol 25 mg Tab) [...] physician if questions or concerns Pharmacy Information [facility]: [address] [facility] [place] Cristobal [phone] Allergies No Known Medication Allergies Problems Ongoing [...] in adult (more content not included)... Normal [facility] BMPon 01-24-2025 Anion gap [Moles/Vol] 9 mmol/L Normal 6-16 [facility] Comment on above: Performed By: #### 2 [id number] #### [facility] [address] [place] [address] Calcium [Mass/Vol] 8.8 mg/dL Low 8.9-11.1 [facility] Comment on above: Performed By: #### 2 [id number] #### [facility] [address] [place] [address] Chloride [Moles/Vol] 98 mmol/L Low 101-111 [facility] Comment on above: Performed By: #### 2 [id number] #### [facility] [address] [place] [address] CO2 [Moles/Vol] 27 mmol/L Normal 21-31 [facility] Comment on above: Performed By: #### 2 [id number] #### [facility] [address] [place] [address] Creatinine [Mass/Vol] 1.0 mg/dL Normal 0.5-1.3 [facility] Comment on above: Performed By: #### 2 [id number] #### [facility] [address] [place] [address] Glucose [Mass/Vol] 114 mg/dL Normal 55-199 [facility] Comment on above: Performed By: #### 2 438556 #### [facility] [address] [place] [address] Potassium [Moles/Vol] 4.5 mmol/L Normal 3.5-5.3 [facility] Comment on above: Performed By: #### 2 [id number] #### [facility] [address] [place] [address] Sodium [Moles/Vol] 129 mmol/L Low 135-145 [facility] Comment on above: Performed By: #### 2 [id number] #### [facility] [address] [place] [address] Urea nitrogen [Mass/Vol] 12 mg/dL Normal 5-21 [facility] Comment on above: Performed By: #### 2 874187 #### [facility] [address] [place] [address] Urea nitrogen/Creatinine [Mass ratio] 12 No Units Normal 10-20 [facility] Comment on above: Performed By: #### 2 [id number] #### [facility] [address] [place] [address] CHEMISTRYOrdered By: SYSTEM SYSTEM on 01-24-2025 Anion [...] wear the damaged aids, requiring a future sustainable agriculture specialist visit to resolve this issue. Moreover, the patient is under management for hypothyroidism, consistently taking his prescribed thyroid medication as directed. He denies experiencing notable symptoms of hypothyroidism, such as coldness or heightened fatigue. His reported increased daytime sleep appears to be associated more with lifestyle factors than with hypothyroidism. - Monitoring and follow-up for hyponatremia through scheduled nephrology appointment. - Anticipated sustainable agriculture specialist visit for hearing aid assessment and [...] The patient will follow up with a liquefier for further evaluation and management of hyponatremia. We will adjust the sodium supplementation based on the upcoming lab results. Ordered: Basic Metabolic Panel Lab Specimen Collect [address] TSH With T4fr Reflex 5. 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 An appointment with an appropriate sustainable agriculture specialist has been planned to assess and [...] ensure therap (more content not included)... Normal [facility] Comment on above: Result Comment: Elec tronically Signed By: Adam COHN, Edwin Lopez.br\Date and Time Signed: 01/24/25 14:16 EDT TSH With T4fr Reflexon 01-24 TSH Qn 2.69 m[IU]/L Normal 0.34-5.60 [facility] Comment on above: Performed By: #### 1 [id number] #### [facility] [address] [place] [address] eGFRon 01-24-2025 eGFR 75 mL/min/1.73 m2 Normal >=59 [facility] Comment on above: Performed By: #### 1 [id number] #### [facility] [address] [place] [address] Population Healthon 01-15-20 [facility] Case Information Case Priority: None Programs: -- Referral Source: Oil Extractor Referral Reason: Care coordination Case Type: Transition [...] tcm note. Created By: Alec Rodrigez Normal [facility] BMPon 01-09-2025 Anion gap [Moles/Vol] 9 mmol/L Normal 6-16 [facility] Comment on above: Performed By: #### 2 [id number] #### [facility] [address] [place] [address] Calcium [Mass/Vol] 9.0 mg/dL Normal 8.9-11.1 [facility] Comment on above: Performed By: #### 2 [id number] #### [facility] [address] [place] [address] Chloride [Moles/Vol] 93 mmol/L Low 101-111 [facility] Comment on above: Performed By: #### 2 [id number] #### [facility] [address] [place] [address] CO2 [Moles/Vol] 27 mmol/L Normal 21-31 [facility] Comment on above: Performed By: #### 2 [id number] #### [facility] [address] [place] [address] Creatinine [Mass/Vol] 0.8 mg/dL Normal 0.5-1.3 [facility] Comment on above: Performed By: #### 2 075103 #### [facility] [address] [place] [address] Glucose [Mass/Vol] 110 mg/dL Normal 55-199 [facility] Comment on above: Performed By: #### 2 [id number] #### [facility] [address] [place] [address] Potassium [Moles/Vol] 4.1 mmol/L Normal 3.5-5.3 [facility] Comment on above: Performed By: #### 2 [id number] #### [facility] [address] [place] [address] Sodium [Moles/Vol] 125 mmol/L Low 135-145 [facility] Comment on above: Performed By: #### 2 [id number] #### [facility] [address] [place] [address] Urea nitrogen [Mass/Vol] 12 mg/dL Normal 5-21 [facility] Comment on above: Performed By: #### 2 [id number] #### [facility] [address] [place] [address] Urea nitrogen/Creatinine [Mass ratio] 15 No Units Normal 10-20 [facility] Comment on above: Performed By: #### 2 [id number] #### [facility] [address] [place] [address] CHEMISTRYOrdered By: SYSTEM SYSTEM on 01-09-2025 Anion [...] 01-09-2025 eGFR 88 mL/min/1.73 m2 Normal >=59 [facility] Comment on above: Performed By: #### 1 [id number] #### [facility] [address] [place] [address] [facility] 01-07-20 [facility] Case Information Case Priority: None Programs: -- Referral Source: Oil Extractor Referral Reason: Care coordination Case Type: Transition [...] as of 01-12, he'll be with [facility] Medicare. Patient has medication refill request, [...] tcm note. Created By: Alec Rodrigez Normal [facility] BMPon 12-31-2024 Anion gap [Moles/Vol] 10 mmol/L Normal 6-16 [facility] Comment on above: Performed By: #### 2 [id number] #### [facility] [address] [place] [address] Calcium [Mass/Vol] 9.3 mg/dL Normal 8.9-11.1 [facility] Comment on above: Performed By: #### 2 [id number] #### [facility] [address] [place] [address] Chloride [Moles/Vol] 95 mmol/L Low 101-111 [facility] Comment on above: Performed By: #### 2 [id number] #### [facility] [address] [place] [address] CO2 [Moles/Vol] 27 mmol/L Normal 21-31 [facility] Comment on above: Performed By: #### 2 [id number] #### [facility] [address] [place] [address] Creatinine [Mass/Vol] 0.8 mg/dL Normal 0.5-1.3 [facility] Comment on above: Performed By: #### 2 [id number] #### [facility] [address] [place] [address] Glucose [Mass/Vol] 90 mg/dL Normal 55-199 [facility] Comment on above: Performed By: #### 2 [id number] #### [facility] [address] [place] [address] Potassium [Moles/Vol] 4.3 mmol/L Normal 3.5-5.3 [facility] Comment on above: Performed By: #### 2 191039 #### [facility] [address] [place] [address] Sodium [Moles/Vol] 128 mmol/L Low 135-145 [facility] Comment on above: Performed By: #### 2 [id number] #### [facility] [address] [place] [address] Urea nitrogen [Mass/Vol] 13 mg/dL Normal 5-21 [facility] Comment on above: Performed By: #### 2 [id number] #### [facility] [address] [place] [address] Urea nitrogen/Creatinine [Mass ratio] 16 No Units Normal 10-20 [facility] Comment on above: Performed By: #### 2 [id number] #### [facility] [address] [place] [address] CHEMISTRYOrdered By: SYSTEM SYSTEM on 12-31-2024 Anion [...] 12-31-2024 eGFR 88 mL/min/1.73 m2 Normal >=59 [facility] Comment on above: Performed By: #### 1 [id number] #### [facility] [address] [place] [address] Family Medicine Office/Clini c Noteon 12-24-2024 Family [...] changes. We (more content not included)... Normal [facility] Comment on above: Result Comment: Elec tronically Signed By: Edwin Garcia MD\.br\Date and Time Signed: 12/24/24 13:31 [facility] 12-24-19 [facility] Case Information Case Priority: None Programs: -- Referral Source: Oil Extractor Referral Reason: Care coordination Case Type: Transition [...] tcm note. Created By: Alec Rodrigez Normal [facility] BMPon 12-18-2024 Anion gap [Moles/Vol] 10 mmol/L Normal 6-16 [facility] Comment on above: Performed By: #### 2 [id number] #### [facility] [address] [place] [address] Calcium [Mass/Vol] 9.1 mg/dL Normal 8.9-11.1 [facility] Comment on above: Performed By: #### 2 [id number] #### [facility] [address] [place] [address] Chloride [Moles/Vol] 98 mmol/L Low 101-111 [facility] Comment on above: Performed By: #### 2 [id number] #### [facility] [address] [place] [address] CO2 [Moles/Vol] 27 mmol/L Normal 21-31 [facility] Comment on above: Performed By: #### 2 655411 #### [facility] [address] [place] [address] Creatinine [Mass/Vol] 0.9 mg/dL Normal 0.5-1.3 [facility] Comment on above: Performed By: #### 2 [id number] #### [facility] [address] [place] [address] Glucose [Mass/Vol] 113 mg/dL Normal 55-199 [facility] Comment on above: Performed By: #### 2 094086 #### [facility] [address] [place] [address] Potassium [Moles/Vol] 3.9 mmol/L Normal 3.5-5.3 [facility] Comment on above: Performed By: #### 2 [id number] #### [facility] [address] [place] [address] Sodium [Moles/Vol] 131 mmol/L Low 135-145 [facility] Comment on above: Performed By: #### 2 [id number] #### [facility] [address] [place] [address] Urea nitrogen [Mass/Vol] 10 mg/dL Normal 5-21 [facility] Comment on above: Performed By: #### 2 [id number] #### [facility] [address] [place] [address] Urea nitrogen/Creatinine [Mass ratio] 11 No Units Normal 10-20 [facility] Comment on above: Performed By: #### 2 [id number] #### [facility] [address] [place] [address] eGFRon 12-18-2024 eGFR 85 mL/min/1.73 m2 Normal >=59 [facility] Comment on above: Performed By: #### 1 [id number] #### [facility] [address] [place] [address] Family Medicine Office/Clini c Noteon 12-17-2024 Family [...] up with Nephrology. Ordered: Basic Metabolic Panel [facility] External Ambulatory Referral 2. 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 Ordered: Basic Metabolic Panel [facility] External Ambulatory Referral 3. Longstanding persistent atrial fibrillation (I48.11: Longstanding persistent atrial fibrillation) Maintain current management regime, evaluate rhythm control, and anticoagulation status during follow-up visits. Ordered: Basic Metabolic Panel [facility] External Ambulatory Referral 4. Hyponatremia (E87.1: Hypo-osmolality and hyponatremia) Continue monitoring sodium levels closely, with recommended nephrology review for stabilization strategy. No significant lifestyle factors contributing to sodium imbalance noted. Ordered: Basic Metabolic Panel [facility] External Ambulatory Referral 5. Hypothyroid (E03.9: Hypothyroidism, unspecified) Monitor thyroid levels to ensure therapeutic levels are maintained, adjust medications if indicated by lab abnormalities. Ordered: Basic Metabolic Panel [facility] External Ambulatory Referral 6. Nonsmoker (Z78.9: Other specified health status) Please continue to not smoke. Ordered: Basic Metabolic Panel Orders: fluticasone nasal, See Instructions, 48 mL, Refill(s) 1, USE 1 SPRAY IN EACH NOSTRIL TWICE A DAY, [facility], 178, cm, 08/28/24 14:50:00 EDT, Height/Length Dosing, 82.2, kg, 08/28/24 14:50:00 EDT, Weight Dosing sodium chloride, See Instructions, 1 gram orally daily, # 90 tab(s), Refills(s) 0, Pharmacy: [facility], 178.6, cm, 12/17/24 15:05:00 EST, Height/Length Dosing, 78.5, kg, 12/17/24 15: (more content not included)... Normal [facility] [facility] Comment on above: Result Comment: Elec tronically Signed By: Adam COHN, Edwin Lopez.br\Date and Time Signed: 12/17/24 15:29 [facility] [place] 12-17-19 [facility] Case Information Case Priority: None Programs: -- Referral Source: Oil Extractor Referral Reason: Care coordination Case Type: Transition [...] Daily, 1 refills fluticasone Nasal 0.05 mg/inh Rivers, See Instructions, Self Directed gabapentin 300 mg [...] cold wea (more content not included)... Normal [facility] Main OR Intraoperative Recor don 11-20-2024 Main OR Intraoperative Record Main OR Intraoperative Record IntraOp Document Type FT Summary Primary Physician: Axel Hernández DO Finalized Date/Time: 11/20/24 07:56:52 Pt. Name: CLIFFORDKassiDARIEL/Sex: 1940 Male Med Rec #: [id number] Physician: Axel Hernández DO Financial #: [id number] Pt. Type: A Room/Bed: [facility] Admit/Disch: 11/19/24 09:28:12 - 11/19/24 14:30:00 [...] W Role Performed JULIETA Surgeon - Primary ASSOCIATE PROFESSOR OF BIOSTATISTICS/SA Time In 11/19/24 12:10:00 11/19/24 12:23:00 11/19/24 12:10:00 Time Out 11/19/24 12:37:00 11/19/24 12:35:00 11/19/24 12:37:00 Procedure CARPAL TUNNEL CARPAL TUNNEL CARPAL TUNNEL RELEASE(Left) RELEASE(Left) RELEASE(Left) Comments DR LOU SUPERVISING Last Modified By: Ambrocio Borges Terry T Sweene, Terry T 11/19/24 12:45:19 11/19/24 12:53:03 11/19/24 12:45:19 Entry 4 Entry 5 Case Attendee Ambrocio Borges Laura C Role Performed Enterprise Application Architect - Primary Scrub - Primary Time In [...] Given Participants Hernández DO, Axel Smalls, Giana ASSOCIATE PROFESSOR OF BIOSTATISTICS, Chau W, Lauren Grant, Ambrocio Borges Time [...] and tissue Entry 1 Skin Integrity Intact, [place], Warm, & Skin Abnormality No Dry Outcomes [...] Hand Ta (more content not included)... Normal [facility] Operative Reporton Operative Report Operative Report [...] PATIENT CONDITION: Satisfactory Deanna Weller Dictated: 11/19/2024 [id number] Transcribed: 11/19/2024 cc:Finn Medina [facility] Comment on above: Result Comment: Elec tronically Signed By: Axel Hernández DO\.br\Date and Time Signed: 11/20/24 16:36 EST BMPon 11-19-2024 Anion gap [Moles/Vol] 10 mmol/L Normal 6-16 [facility] Comment on above: Order Comment: To be drawn day of surgery. Performed By: #### 2 [id number] #### [facility] [address] [place] [address] Calcium [Mass/Vol] 9.2 mg/dL Normal 8.9-11.1 [facility] Comment on above: Order Comment: To be drawn day of surgery. Performed By: #### 2 [id number] #### [facility] [address] [place] [address] Chloride [Moles/Vol] 98 mmol/L Low 101-111 [facility] [place] Comment on above: Order Comment: To be drawn day of surgery. Performed By: #### 2 [id number] #### [facility] [address] [place] [address] CO2 [Moles/Vol] 26 mmol/L Normal 21-31 [facility] Comment on above: Order Comment: To be drawn day of surgery. Performed By: #### 2 [id number] #### [facility] [address] [place] [address] Creatinine [Mass/Vol] 0.9 mg/dL Normal 0.5-1.3 [facility] Comment on above: Order Comment: To be drawn day of surgery. Performed By: #### 2 [id number] #### [facility] [address] [place] [address] Glucose [Mass/Vol] 77 mg/dL Normal 55-199 [facility] Comment on above: Order Comment: To be drawn day of surgery. Performed By: #### 2 [id number] #### [facility] [address] [place] [address] Potassium [Moles/Vol] 4.2 mmol/L Normal 3.5-5.3 [facility] Comment on above: Order Comment: To be drawn day of surgery. Performed By: #### 2 [id number] #### [facility] [address] [place] [address] Sodium [Moles/Vol] 130 mmol/L Low 135-145 [facility] Comment on above: Order Comment: To be drawn day of surgery. Performed By: #### 2 [id number] #### [facility] [address] [place] [address] Urea nitrogen [Mass/Vol] 8 mg/dL Normal 5-21 [facility] Comment on above: Order Comment: To be drawn day of surgery. Performed By: #### 2 [id number] #### [facility] [address] [place] [address] Urea nitrogen/Creatinine [Mass ratio] 9 No Units Low 10-20 [facility] Comment on above: Order Comment: To be drawn day of surgery. Performed By: #### 2 [id number] #### [facility] [address] [place] [address] CHEMISTRYOrdered By: Lab ROP User on 11-19-2024 Glucose [Mass/Vol] 78 mg/dL Normal 55 - 99 mg/dL [facility] POC Subsection Comment on above: Result Comment: Hilary danna Meter POC Username MAYA SOTELO Invalid Interpretation Code [facility] POC Subsection Sodium [Moles/Vol] [id number] mmol/L Invalid Interpretation Code [facility] POC Subsection Sodium [Moles/Vol] [id number] mmol/L Invalid Interpretation Code [facility] POC Subsection CHEMISTRYOrdered By: [...] 38.5 s High 25.1 - 36.5 second(s) [facility] Auto Coag Comment on [...] the same coagulation reagent and instrumentation as [facility]. Currently there are no coagulation studies available worldwide for children to 14 days, and no normal ranges. Heparin therapeutic range (represented by Anti-Factor Xa activity of 0.2 - 0.4 U/mL) corresponds to PTT of 56.6 - 109.0 sec. INR Coag (PPP) [Relative time] 1.11 {INR} Invalid Interpretation Code [facility] Comment on above: Interpretive Data: I NR results are specifically intended to assess patients stabilized on long-term Anticoagulation therapy suggested INR s Less Intensive Anticoagulation 2.0 3.0 Conventional Range 3.0 4.5 PT Coag (PPP) [Time] 12.5 s Normal 9.4 - 1 2.5 second(s) [facility] Auto Coag Comment on [...] the same coagulation reagent and instrumentation as [facility]. Currently there are no coagulation studies available worldwide for children to 14 days, and no normal ranges. Capillary Glucose POCon Glucose [Mass/Vol] 78 mg/dL Normal 55-99 [facility] Comment on above: Result Comment: Hilary danna Meter Performed By: #### 2 [id number] #### [facility] [address] [place] [address] Discharge Instructionson Discharge Instructions Discharge Instructions CLIFFORDDARIEL [...] 2024 8:00 AM EDT With: Where: [address] [id number]- New Follow Up Appointments after Discharge Follow Up with GORDO Weller When: 11/28/2024 01:00 PM EST Comments: Keep scheduled appointment. Call for any problems. Where: [address] [place] [address]- Personal Medicine (1) Medications What How Much When Instructions [...] fluticasone nasal (fluticasone Nasal 0.05 mg/ inh Rivers) See instructions USE 1 SPRAY IN EACH [...] Allergies No Known Medication Allergies Education Materials [place] [place] [facility] CARPAL TUNNEL RELEASE INSTRUCTIONS [...] if the (more content not included)... Normal [facility] Comment on above: Result Comment: Elec tronically Signed By: Dirk KHAN, Maya Vanegas\.br\Date and Time Signed: 11/19/24 13:12 EST [facility] CAPILLARY GLUCOSE POCon 11-19-2024 Glucose [Mass/Vol] 78 mg/dL 55 - 99 mg/dL [facility] Comment on above: Cleaned Meter Original Ordering Provider: DO Axel Hernández [facility] Main OR PACU I Recordon Main OR PACU I Record Main OR PACU I Record PACU Phase I Document Type FT Summary Primary Physician: Axel Hernández DO Finalized Date/Time: 11/19/24 13:24:52 Pt. Name: DARIEL ZABALA/Sex: 1940 Male Med Rec #: [id number] Physician: Axel Hernández DO Financial #: [id number] Pt. Type: A Room/Bed: Admit/Disch: 11/19/24 09:28:12 [...] 13:24 Vicki Sethi RN 11/19/24 13:24 Normal [facility] Main OR PACU II Recordon Main OR PACU II Record Main OR PACU II Record PACU Phase II Document Type FT Summary Primary Physician: Axel Hernández DO Finalized Date/Time: 11/19/24 14:27:02 Pt. Name: DARIEL ZABALA/Sex: 1940 Male Med Rec #: [id number] Physician: Axel Hernández DO Financial #: [id number] Pt. Type: A Room/Bed: [facility] Admit/Disch: 11/19/24 09:28:12 - Institution: Case [...] administered during the perioperative period Finalized By: Maay Sotelo RN Document Signatures Signed By: Maya Sotelo RN 11/19/24 14:27 Normal [facility] Main OR Preoperative Recordo n 11-19-2024 Main OR Preoperative Record Main OR Preoperative Record PreOp Document Type FT Summary Primary Physician: Axel Hernández DO Finalized Date/Time: 11/19/24 12:53:23 Pt. Name: DARIEL ZABALA/Sex: 1940 Male Med Rec #: [id number] Physician: Axel Hernández DO Financial #: [id number] Pt. Type: Room/Bed: [facility] Admit/Disch: 11/19/24 09:28:12 - Institution: Case Times PreOp FT Pre-Care Text: Verifies consent for planned procedure, identifies individual values and wishes concerning care, includes family members in perioperative teaching Entry 1 Patient Times. In Pre Surgery 11/19/24 09:35:00 Out Pre Surgery 11/19/24 12:08:00 Outcomes Met? Yes Last Modified By: Ambrocio oBrges 11/19/24 12:53:16 Post-Care Text: The patient participates in decisions affecting his or her perioperative plan of care Finalized By: Ambrocio Borges Document Signatures Signed By: Ambrocio Borges 11/19/24 12:53 Ambrocio Borges 11/19/24 12:53 [facility] PT & PTTon 11-19-2024 aPTT Coag (PPP) [Time] 38.5 second(s) High 25.1-36.5 [facility] Comment on above: Result Comment: Para [...] the same coagulation reagent and instrumentation as [facility]. Currently there are no coagulation studies available worldwide for children to 14 days, and no normal ranges. Heparin therapeutic range (represented by Anti-Factor Xa activity of 0.2 - 0.4 U/mL) corresponds to PTT of 56.6 - 109.0 sec. Performed By: #### 1 [id number] #### [facility] [address] [place] [address] INR Coag (PPP) [Relative time] 1.11 {INR} Invalid Interpretation Code [facility] Comment on above: Result Comment: INR results are specifically intended to assess patients stabilized on long-term Anticoagulation therapy suggested INR???s ???Less Intensive Anticoagulation??? 2.0 ??? 3.0 Conventional Range 3.0 ??? 4.5 Performed By: #### 1 [id number] #### [facility] [address] [place] [address] PT Coag (PPP) [Time] 12.5 second(s) Normal 9.4-12.5 [facility] Comment on above: Result Comment: 15 [...] the same coagulation reagent and instrumentation as [facility]. Currently there are no coagulation studies available worldwide for children to 14 days, and no normal ranges. Performed By: #### 1 [id number] #### [facility] [address] [place] [address] eGFRon 11-19-2024 eGFR 85 mL/min/1.73 m2 Normal >=59 [facility] Comment on above: Performed By: #### 1 [id number] ####[facility] [address] [place] [address] BMPon 11-12-2024 Anion gap [Moles/Vol] 7 mmol/L Normal 6-16 [facility] Comment on above: Performed By: #### 2 [id number] #### [facility] [address] [place] [address] Calcium [Mass/Vol] 8.8 mg/dL Low 8.9-11.1 [facility] Comment on above: Performed By: #### 2 [id number] #### [facility] [address] [place] [address] Chloride [Moles/Vol] 97 mmol/L Low 101-111 [facility] [place] Comment on above: Performed By: #### 2 [id number] #### [facility] [address] [place] [address] CO2 [Moles/Vol] 28 mmol/L Normal 21-31 [facility] Comment on above: Performed By: #### 2 [id number] #### [facility] [address] [place] [address] Creatinine [Mass/Vol] 0.9 mg/dL Normal 0.5-1.3 [facility] Comment on above: Performed By: #### 2 [id number] #### [facility] [address] [place] [address] Glucose [Mass/Vol] 106 mg/dL Normal 55-199 [facility] Comment on above: Performed By: #### 2 [id number] #### [facility] [address] [place] [address] Potassium [Moles/Vol] 4.4 mmol/L Normal 3.5-5.3 [facility] Comment on above: Performed By: #### 2 [id number] #### [facility] [address] [place] [address] Sodium [Moles/Vol] 128 mmol/L Low 135-145 [facility] Comment on above: Performed By: #### 2 [id number] #### [facility] [address] [place] [address] Urea nitrogen [Mass/Vol] 12 mg/dL Normal 5-21 [facility] Comment on above: Performed By: #### 2 [id number] #### [facility] [address] [place] [address] Urea nitrogen/Creatinine [Mass ratio] 13 No Units Normal 10-20 [facility] Comment on above: Performed By: #### 2 [id number] #### [facility] [address] [place] [address] CHEMISTRYOrdered By: SYSTEM SYSTEM on 11-12-2024 Anion [...] (Bld) [Mass fraction] 5.4 % Normal <=5.9% [facility] ChemAutoSS [id number] 11-12-2024 HbA1c (Bld) [Mass fraction] 5.4 % Normal <=5.9 [facility] Comment on above: Performed By: #### 7 [id number] #### [facility] [address] [place] [address] Inpatient Patient Summaryon 11-12-2024 Inpatient Patient Summary Inpatient Patient Summary [facility] [address] [place], [place] [address] [facility] Clinical Discharge Instructions PERSON INFORMATION Name: DARIEL ZABALA PHYSICIANS Admitting Physician: Axel Hernández DO Attending Physician: Axel Hernández DO PCP: Edwin Garcia MD Discharge Diagnosis: Carpal tunnel syndrome on left Comment: PATIENT EDUCATION INFORMATION Instructions: Edgar Gonzalez Carpal Tunnel Release Instructions (Custom) (CUSTOM) Medication Leaflets: Follow up: With: Address: When: Axel Hernández [address] [place] [address] [facility] (1) Comments: Keep scheduled appointment Type Location Start [facility] Surgery [facility] Surgical Services 11/19/2024 2:15 PM 11/19/2024 2:45 PM Confirmed Cardiology Follow Up (FT) [facility] 12/12/2024 10:15 AM 12/12/2024 10:30 AM Confirmed Medicare Wellness Subsequent [facility] FM Jackie 05/02/2025 8:00 [...] 1. fluticasone nasal (fluticasone Nasal 0.05 mg/inh Rivers) USE 1 SPRAY IN EACH NOSTRIL TWICE [...] Tablets By Mouth every day. Comment: Normal [facility] Outpatient Surgery Discharge Instructionon 11-12-2024 Outpatient Surgery Discharge Instruction Outpatient Surgery Discharge Instruction [place] [id number] Patient Discharge Instructions PERSON INFORMATION Name: DARIEL [...] Follow up: With: Address: When: Axel Hernández [address] [place] [phone] Business (1) Comments: Keep scheduled appointment Type Location Start [facility] Surgery FT [facility] Surgical Services 11/19/2024 2:15 PM 11/19/2024 2:45 PM Confirmed Cardiology Follow Up (FT) FT.Cardiology Clinic 12/12/2024 10:15 AM 12/12/2024 10:30 AM Confirmed Medicare Wellness Subsequent [facility] [place] 05/02/2025 8:00 AM 05/02/2025 9:00 AM Confirmed [...] to serve you. Thank you for choosing [facility] HERE ARE THE MEDICATION CHANGES THAT OCCURRED [...] 1. fluticasone nasal (fluticasone Nasal 0.05 mg/inh Rivers) USE 1 SPRAY IN EACH NOSTRIL TWICE [...] Mouth every day. PATIENT EDUCATION INFORMATION Instructions: [place], [place] [facility] CARPAL TUNNEL RELEASE INSTRUCTIONS Post-Operative Week One You will be in a soft dressing from mid palm to forearm. Please remove dressing two days after surgery. At that point, clean daily with peroxide or betadine and place daily fresh bandaids. Cover for showers with waterproof bandaid, op site occlusive dressing (more content not included)... Normal [facility] TSH With T4fr Reflexon 11-12 TSH Qn 2.17 m[IU]/L Normal 0.34-5.60 [facility] Comment on above: Performed By: #### 1 [id number] #### [facility] [address] [place] [address] eGFRon 11-12-2024 eGFR 85 mL/min/1.73 m2 Normal >=59 [facility] Comment on above: Performed By: #### 1 [id number] #### [facility] [address] [place] [address] Ambulatory Visit Summaryon 1 01-02-2024 Ambulatory Visit [...] Tab) fluticasone nasal (fluticasone Nasal 0.05 mg/inh [place]) gabapentin (gabapentin 300 mg Cap) glimepiride (glimepiride [...] Appointments Tuesday 9:20 AM EST With: Where: [address] [id number]- Tuesday 2:15 PM EST With: Where: [facility] Surgical Services Tuesday 10:15 AM EST With: Dixon Dubose PA-C Where: [facility] 2024 8:00 AM EDT With: Where: [address] [id number]- Medications What How Much When Instructions Unchanged [...] fluticasone nasal (fluticasone Nasal 0.05 mg/ inh Rivers) See instructions USE 1 SPRAY IN EACH [...] choosing us for your care. Clarke [facility] Family Medicine Office/Clini c Noteon [...] cardiovascular disease) (I25.10: Atherosclerotic heart disease of [place] coronary artery without angina pectoris) Denies CP. [...] Recent) 3074 (more content not included)... Normal [facility] Comment on above: Result Comment: Elec tronically Signed By: Adam COHN, Edwin Lopez.br\Date and Time Signed: 11/01/24 09:42 EST BMPon 10-30-2024 Anion gap [Moles/Vol] 11 mmol/L Normal 6-16 [facility] Comment on above: Performed By: #### 2 [id number] #### [facility] [address] [place] [address] Calcium [Mass/Vol] 9.0 mg/dL Normal 8.9-11.1 [facility] Comment on above: Performed By: #### 2 [id number] #### [facility] [address] [place] [address] Chloride [Moles/Vol] 96 mmol/L Low 101-111 [facility] [place] Comment on above: Performed By: #### 2 [id number] #### [facility] [address] [place] [address] CO2 [Moles/Vol] 27 mmol/L Normal 21-31 [facility] Comment on above: Performed By: #### 2 [id number] #### [facility] [address] [place] [address] Creatinine [Mass/Vol] 0.9 mg/dL Normal 0.5-1.3 [facility] Comment on above: Performed By: #### 2 [id number] #### [facility] [address] [place] [address] Glucose [Mass/Vol] 87 mg/dL Normal 55-199 [facility] Comment on above: Performed By: #### 2 [id number] #### [facility] [address] [place] [address] Potassium [Moles/Vol] 4.7 mmol/L Normal 3.5-5.3 [facility] Comment on above: Performed By: #### 2 [id number] #### [facility] [address] [place] [address] Sodium [Moles/Vol] 129 mmol/L Low 135-145 [facility] Comment on above: Performed By: #### 2 [id number] #### [facility] [address] [place] [address] Urea nitrogen [Mass/Vol] 15 mg/dL Normal 5-21 [facility] Comment on above: Performed By: #### 2 [id number] #### [facility] [address] [place] [address] Urea nitrogen/Creatinine [Mass ratio] 17 No Units Normal 10-20 [facility] Comment on above: Performed By: #### 2 [id number] #### [facility] [address] [place] [address] CBC w/ Auto Diffon 4 Basophils/100 WBC (Bld) 0.9 % Normal 0.0-2.0 [facility] Comment on above: Performed By: #### 2 [id number] #### [facility] [address] [place] [address] Basophils/Leukocytes Auto (Bld) [Pure # fraction] 0.0 E9/L Normal 0.0-0.2 [facility] Comment on above: Performed By: #### 2 [id number] #### [facility] [address] [place] [address] Eosinophils (Bld) [#/Vol] 0.2 E9/L Normal 0.0-0.5 [facility] Comment on above: Performed By: #### 2 207709 #### [facility] [address] [place] [address] Eosinophils/100 WBC (Bld) 3.6 % Normal 0.0-8.0 [facility] Comment on above: Performed By: #### 2 [id number] #### [facility] [address] [place] [address] Erythrocyte distribution width (RBC) [Ratio] 13.4 % Normal 10.9-14.2 [facility] Comment on above: Performed By: #### 2 574205 #### [facility] [address] [place] [address] Hematocrit (Bld) [Volume fraction] 36.3 % Low 37.7-49.0 [facility] Comment on above: Performed By: #### 2 654014 #### [facility] [address] [place] [address] Hemoglobin (Bld) [Mass/Vol] 12.8 g/dL Low 13.5-17.5 [facility] Comment on above: Performed By: #### 2 [id number] #### [facility] [address] [place] [address] Lymphocytes (Bld) [#/Vol] 1.5 E9/L Normal 1.0-4.0 [facility] Comment on above: Performed By: #### 2 [id number] #### [facility] [address] [place] [address] Lymphocytes/100 WBC (Bld) 30.1 % Normal 14.0-50.0 [facility] Comment on above: Performed By: #### 2 [id number] #### [facility] [address] [place] [address] MCH (RBC) [Entitic mass] 31.7 pg Normal 27.0-34.0 [facility] Comment on above: Performed By: #### 2 [id number] #### [facility] [address] [place] [address] MCHC (RBC) [Mass/Vol] 35.2 g/dL Normal 31.4-36.0 [facility] Comment on above: Performed By: #### 2 [id number] #### [facility] [address] [place] [address] MCV (RBC) [Entitic vol] 90.1 fL Normal 80.0-100.0 [facility] Comment on above: Performed By: #### 2 [id number] #### [facility] [address] [place] [address] Monocytes (Bld) [#/Vol] 0.4 E9/L Normal 0.2-1.0 [facility] Comment on above: Performed By: #### 2 [id number] #### [facility] [address] [place] [address] Neutrophils (Bld) [#/Vol] 2.9 E9/L Normal 2.0-7.5 [facility] Comment on above: Performed By: #### 2 [id number] #### [facility] [address] [place] [address] Neutrophils/100 WBC (Bld) 56.9 % Normal 36.0-75.0 [facility] Comment on above: Performed By: #### 2 [id number] #### [facility] [address] [place] [address] Platelet 175.0 E9/L Normal 150.0-500.0 [facility] Comment on above: Performed By: #### 2 [id number] #### [facility] [address] [place] [address] Platelet mean volume (Bld) [Entitic vol] 9.1 fL Normal 6.4-10.8 [facility] Comment on above: Performed By: #### 2 [id number] #### [facility] [address] [place] [address] RBC (Bld) [#/Vol] 4.0 E12/L Low 4.3-5.9 [facility] Comment on above: Performed By: #### 2 [id number] #### [facility] [address] [place] [address] WBC corrected for nucl RBC Auto (Bld) [#/Vol] 5.1 E9/L Normal 4.0-11.0 [facility] Comment on above: Performed By: #### 2 [id number] #### [facility] [facility] [address] [place] [address] CHEMISTRYOrdered By: SYSTEM SYSTEM on 10-30-2024 Anion [...] 10-30-2024 eGFR 85 mL/min/1.73 m2 Normal >=59 [facility] Comment on above: Performed By: #### 1 [id number] #### [facility] [address] [place] [address] Family Medicine Office/Clini c Noteon 09-10-2024 Family [...] Daily, # 90 tab(s), Refills(s) 0, Pharmacy: [facility], 178, cm, 09/10/24 13:01:00 EDT, Height/Length [...] Daily, 1 refills fluticasone Nasal 0.05 mg/inh [place], See Instructions gabapentin 300 mg Cap, 300 [...] Diabetes mellitus (more content not included)... 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 male here [...] E&M of New Patient Low 30-44 Min 01282 2. ASCVD (arteriosclerotic cardiovascular disease) (I25.10: Atherosclerotic heart disease of [place] coronary artery without angina pectoris) The patient require surgery he will require cardiac clearance Ordered: E&M of New Patient Low 30-44 Min 03808 3. Longstanding persistent atrial fibrillation (I48.11: Longstanding persistent atrial fibrillation) Should patient require or opt for a robotic repair he will need to hold his anticoagulation for 5 days prior to the procedure Ordered: E&M of New Patient Low 30-44 Min 98260 Follow-up No qualifying data available Problem List/Past [...] Oral, Daily, 1 refills Flonase 0.05 mg/inh [place], 1 spray(s), Nasal, BID gabapentin 300 mg [...] inactivated 08/02/2014 Recorded Normal [facility] Comment on above: Result Comment: [...] mg Tab) fluticasone nasal (Flonase 0.05 mg/inh [place]) gabapentin (gabapentin 300 mg Cap) glimepiride (glimepiride [...] EST With: Adam COHN, Edwin Cole Where: [address] [id number]- Tuesday 1:00 PM EST With: Dixon Dubose PA-C Where: [facility] 2024 8:00 AM EDT With: Where: [address] [address]- Medications What How Much When Why Instructions [...] Unchanged fluticasone nasal (Flonase 0.05 mg/ inh [place]) 1 Sprays Nasal Inhalation 2 times a [...] for your care. Normal [facility] Family Medicine Office/Clini c Noteon [...] advised him his appt is 08/13/24 with [facility] at 12:30pm History of Present [...] day(s), # 21 tab(s), Refills(s) 0, Pharmacy: [facility]/pharmacy #[id number], 178, cm, 07/31/24 14:02:00 [...] Oral, Daily, 1 refills Flonase 0.05 mg/inh [place], 1 spray(s), Nasal, BID gabapentin 300 mg [...] 1 r (more content not included)... Normal [facility] Comment on above: Result Comment: Elec [...] day(s), # 21 tab(s), Refills(s) 0, Pharmacy: [facility]/pharmacy #[id number], 178, cm, 07/31/24 14:02:00 EDT, Height/Length Dosing, 78.5, kg, 07/31/24 14:02:00 EDT, Weight Dosing tramadol, 50 mg = 1 tab(s), Oral, q4hr, PRN for pain, X 7 day(s), # 21 tab(s), Refills(s) 0, Pharmacy: [facility]/pharmacy #[id number], 178, cm, 07/31/24 14:02:00 [...] Oral, Daily, 1 refills Flonase 0.05 mg/inh [place], 1 spray(s), Nasal, BID gabapentin 300 mg [...] inactivated 08/02/2014 Recorded Normal [facility] Comment on above: Result Comment: [...] mg Tab) fluticasone nasal (Flonase 0.05 mg/inh [place]) gabapentin (gabapentin 300 mg Cap) glimepiride (glimepiride [...] PM EDT With: Edwin Garcia MD Where: [address] [id number]- 2023 9:15 AM EST With: Edwin Garcia MD Where: [address] [address]- Tuesday 1:00 PM EST With: Dixon Dubose PA-C Where: [facility] 2024 8:00 AM EDT With: Where: [address] [address]- Medications What How Much When Instructions Unchanged [...] Unchanged fluticasone nasal (Flonase 0.05 mg/ inh [place]) 1 Sprays Nasal Inhalation 2 times a [...] choosing us for your care. Normal [facility] Family Medicine Office/Clini c Noteon 07-24-2024 Family Medicine Office/Clinic Note Family Medicine Office/Clinic Note HPI Staff Dariel is an 84 year old male presenting for ER follow up ER followup: Hospital: [facility] Visit date: 07/14/24 Symptoms the patient presented [...] patient was under the dosed. Patient stated [place] was helping him more. Patient denies any [...] - Will do Tizanadine - Will do [place] for pain - Follow up in 1 week. - Will send to pain Ordered: [facility] External Ambulatory Referral 2. Inguinal hernia of left side without obstruction or gangrene (K40.90: Unilateral inguinal hernia, without obstruction or gangrene, not specified as recurrent) - Pt cancelled his surgery. - NO pain at this time. - Encouraged follow up Ordered: [facility] External Ambulatory Referral 3. Nonsmoker (Z78.9: Other specified health status) - Please continue to not smoke Ordered: Body Mass Index (BMI) documented 3008F Current tobacco non-user 1036F Depression Screening Negative 3352F [facility] External Ambulatory Referral Most [...] q8hr, # 90 tab(s), Refills(s) 1, Pharmacy: [facility]/pharmacy #[id number], 178, cm, 07/24/24 14:57:00 [...] Oral, Daily, 1 refills Flonase 0.05 mg/inh [place], 1 spray(s), Nasal, BID gabapentin 300 mg Cap, 300 mg= 1 cap(s), Oral, Daily, 1 refills glimepiride 2 mg Tab, 2 mg= 1 tab(s), Oral, Daily, 1 refills Jantoven 5 mg oral tablet, 5 mg= 1 tab(s), Oral, Daily levothyroxine 25 mcg (0.025 mg) Tab, 25 mcg= 1 tab(s), Oral, Daily, 1 refills [place] 325 mg-5 mg oral tablet, 1 tab(s), [...] No. [place]hol (more content not included)... Normal [facility] Comment on above: Result Comment: Elec [...] AM EST With: Edwin Garcia MD [facility]: [facility] [address]- Tuesday 1:00 PM EST With: Dixon Dubose PA-C Where: [facility] 2024 8:00 AM EDT With: Where: [address] [address]- Medications What How Much When Instructions Unchanged [...] choosing us for your care. Clarke [facility] Family Medicine Office/Clini c Noteon [...] Daily, # 90 cap(s), Refills(s) 1, Pharmacy: [facility], 178, cm, 07/03/24 10:05:00 EDT, Height/Length Dosing, 80.8, kg, 07/03/24 10:05:00 EDT, Weight Dosing omeprazole, 40 mg = 1 cap(s), Oral, Daily, # 90 cap(s), Refills(s) 0, Pharmacy: [facility], 178.2, cm, 02/02/24 10:29:00 EDT, Height/Length Dosing, 84.1, kg, 02/02/24 10:29:00 EDT, Weight Dosing sildenafil, 100 mg = 1 tab(s), Oral, Daily, PRN for erectile dysfunction, 1 hour before sexual activity, # 5 tab(s), Refills(s) 0, Pharmacy: [facility], 178, cm, 07/03/24 10:05:00 EDT, Height/Length Dosing, 80.8, kg, 07/03/24 10:05:00 EDT,... 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 Normal [facility] Comment on above: Result Comment: Elec [...] inactivated 08/02/2014 Recorded Normal [facility] Comment on above: Result Comment: Elec tronically Signed By: Ericka COHN, Kashif Perez.br\Date and Time Signed: 06/11/24 13:14 EDT CBC w/ Auto Diffon 4 Basophils/100 WBC (Bld) 0.9 % Normal 0.0-2.0 [facility] Comment on above: Performed By: #### 2 [id number] #### [facility] [address] [place] [address] Basophils/Leukocytes Auto (Bld) [Pure # fraction] 0.0 E9/L Normal 0.0-0.2 [facility] Comment on above: Performed By: #### 2 [id number] #### [facility] [address] [place] [address] Eosinophils (Bld) [#/Vol] 0.1 E9/L Normal 0.0-0.5 [facility] Comment on above: Performed By: #### 2 [id number] #### [facility] [address] [place] [address] Eosinophils/100 WBC (Bld) 2.4 % Normal 0.0-8.0 [facility] Comment on above: Performed By: #### 2 [id number] #### [facility] [address] [place] [address] Erythrocyte distribution width (RBC) [Ratio] 14.4 % High 10.9-14.2 [facility] Comment on above: Performed By: #### 2 [id number] #### [facility] [address] [place] [address] Hematocrit (Bld) [Volume fraction] 42.2 % Normal 37.7-49.0 [facility] Comment on above: Performed By: #### 2 [id number] #### [facility] [address] [place] [address] Hemoglobin (Bld) [Mass/Vol] 14.0 g/dL Normal 13.5-17.5 [facility] Comment on above: Performed By: #### 2 139357 #### [facility] [address] [place] [address] Lymphocytes (Bld) [#/Vol] 1.4 E9/L Normal 1.0-4.0 [facility] Comment on above: Performed By: #### 2 [id number] #### [facility] [address] [place] [address] Lymphocytes/100 WBC (Bld) 34.0 % Normal 14.0-50.0 [facility] Comment on above: Performed By: #### 2 792974 #### [facility] [address] [place] [address] MCH (RBC) [Entitic mass] 30.8 pg Normal 27.0-34.0 [facility] Comment on above: Performed By: #### 2 359083 #### [facility] [address] [place] [address] MCHC (RBC) [Mass/Vol] 33.1 g/dL Normal 31.4-36.0 [facility] Comment on above: Performed By: #### 2 440756 #### [facility] [address] [place] [address] MCV (RBC) [Entitic vol] 92.9 fL Normal 80.0-100.0 [facility] Comment on above: Performed By: #### 2 524169 #### [facility] [address] [place] [address] Monocytes (Bld) [#/Vol] 0.4 E9/L Normal 0.2-1.0 [facility] Comment on above: Performed By: #### 2 [id number] #### [facility] [address] [place] [address] Neutrophils (Bld) [#/Vol] 2.2 E9/L Normal 2.0-7.5 [facility] Comment on above: Performed By: #### 2 [id number] #### [facility] [address] [place] [address] Neutrophils/100 WBC (Bld) 53.4 % Normal 36.0-75.0 [facility] Comment on above: Performed By: #### 2 649472 #### [facility] [address] [place] [address] Platelet 166.0 E9/L Normal 150.0-500.0 [facility] Comment on above: Performed By: #### 2 741193 #### [facility] [address] [place] [address] Platelet mean volume (Bld) [Entitic vol] 9.8 fL Normal 6.4-10.8 [facility] Comment on above: Performed By: #### 2 579480 #### [facility] [address] [place] [address] RBC (Bld) [#/Vol] 4.5 E12/L Normal 4.3-5.9 [facility] Comment on above: Performed By: #### 2 434409 #### [facility] [address] [place] [address] WBC corrected for nucl RBC Auto (Bld) [#/Vol] 4.2 E9/L Normal 4.0-11.0 [facility] Comment on above: Performed By: #### 2 095317 #### [facility] [address] [place] [address] CHEMISTRYOrdered By: SYSTEM SYSTEM on 05-01-2024 Albumin [...] for this result was chemiluminescence using [employer]s Access Hybritech PSA reagent. Protein [Mass/Vol] [...] 05-01-2024 Albumin [Mass/Vol] 4.2 g/dL Normal 3.3-5.0 [facility] Comment on above: Performed By: #### 2 700549 #### [facility] [address] [place] [address] Albumin/Globulin (S) [Mass conc ratio] 1.4 Normal 1.1-2.2 [facility] Comment on above: Performed By: #### 2 692840 #### [facility] [address] [place] [address] ALP [Catalytic activity/Vol] 83 Int._Unit/L Normal 21-98 [facility] Comment on above: Performed By: #### 2 237135 #### [facility] [address] [place] [address] ALT No additional P-5'-P [Catalytic activity/Vol] 14 Int._Unit/L Normal 6-46 [facility] Comment on above: Performed By: #### 2 745259 #### [facility] [address] [place] [address] Anion gap [Moles/Vol] 10 mmol/L Normal 6-16 [facility] Comment on above: Performed By: #### 2 706560 #### [facility] [address] [place] [address] AST [Catalytic activity/Vol] 22 Int._Unit/L Normal 5-43 [facility] Comment on above: Performed By: #### 2 868330 #### [facility] [address] [place] [address] Bilirubin [Mass/Vol] 0.9 mg/dL Normal 0.0-1.1 [facility] Comment on above: Performed By: #### 2 319739 #### [facility] [address] [place] [address] Calcium [Mass/Vol] 9.5 mg/dL Normal 8.9-11.1 [facility] Comment on above: Performed By: #### 2 280281 #### [facility] [address] [place] [address] Chloride [Moles/Vol] 103 mmol/L Normal 101-111 [facility] Comment on above: Performed By: #### 2 270053 #### [facility] [address] [place] [address] CO2 [Moles/Vol] 29 mmol/L Normal 21-31 [facility] Comment on above: Performed By: #### 2 702833 #### [facility] [address] [place] [address] Creatinine [Mass/Vol] 1.1 mg/dL Normal 0.5-1.3 [facility] Comment on above: Performed By: #### 2 793072 #### [facility] [address] [facility] [place] [address] Globulin (S) [Mass/Vol] 2.9 g/dL Normal 1.4-4.0 [facility] Comment on above: Performed By: #### 2 127451 #### [facility] [address] [place] [address] Glucose [Mass/Vol] 104 mg/dL Normal 55-199 [facility] Comment on above: Performed By: #### 2 667163 #### [facility] [address] [place] [address] Potassium [Moles/Vol] 5.2 mmol/L Normal 3.5-5.3 [facility] Comment on above: Performed By: #### 2 057679 #### [facility] [address] [place] [address] Protein [Mass/Vol] 7.1 g/dL Normal 6.0-7.8 [facility] Comment on above: Performed By: #### 2 254693 #### [facility] [address] [place] [address] Sodium [Moles/Vol] 137 mmol/L Normal 135-145 [facility] Comment on above: Performed By: #### 2 625547 #### [facility] [address] [place] [address] Urea nitrogen [Mass/Vol] 15 mg/dL Normal 5-21 [facility] Comment on above: Performed By: #### 2 859901 #### [facility] [address] [place] [address] Urea nitrogen/Creatinine [Mass ratio] 14 No Units Normal 10-20 [facility] Comment on above: Performed By: #### 2 801717 #### [facility] [address] [place] [address] HEMATOLOGYOrdered By: SYSTEM SYSTEM on 05-01-2024 Basophils/100 [...] 05-01-2024 Cholesterol [Mass/Vol] 168 mg/dL Normal 120-200 [facility] Comment on above: Performed By: #### 2 051320 #### [facility] [address] [place] [address] Cholesterol in HDL [Mass/Vol] 54 mg/dL Invalid Interpretation Code [facility] Comment on above: Result Comment: '>= 60 LOW RISK' '<= 40 HIGH RISK' Performed By: #### 2 440698 #### [facility] [address] [place] [address] Cholesterol in LDL [Mass/Vol] 99 mg/dL Normal <=129 [facility] Comment on above: Performed By: #### 2 537364 #### [facility] [address] [place] [address] Cholesterol in VLDL [Mass/Vol] 16 mg/dL Normal 7-40 [facility] Comment on above: Performed By: #### 2 734946 #### [facility] [address] [place] [address] Triglyceride [Mass/Vol] 78 mg/dL Normal <=149 [facility] Comment on above: Performed By: #### 2 845448 #### [facility] [address] [place] [address] PSA Screen, Totalon 05-01-20 24 Prostate specific Ag [Mass/Vol] 1.3 ng/mL Normal 0.1-3.5 [facility] Comment on above: Result Comment: The concentration of PSA determined by different manufacturers can vary due to differences in assay methods and reagent specificity. Values obtained from different assay methods cannot be used interchangeably. The methodology used for this result was chemiluminescence using [employer]'s Access Hybritech PSA reagent. Performed By: #### 1 [id number] #### [facility] [address] [place] [address] CHEMISTRYOrdered By: Sara ROP User on 03-26-2024 Glucose [Mass/Vol] 92 mg/dL Normal 55 - 99 mg/dL [facility] POC Subsection Comment on above: Result Comment: Justine garcia RN/ POC Device SN [id number] 1 Invalid Interpretation Code [facility] POC Subsection POC User ID [id number] 1 Invalid Interpretation Code [facility] POC Subsection POC Username LORNA WILSON Invalid Interpretation Code [facility] POC Subsection COAGULATIONOrdered By: Toshia Tadeo on 03-26-2024 aPTT Coag (PPP) [Time] 35.8 s Normal 25.1 - 36.5 second(s) [facility] Auto Coag Comment on [...] the same coagulation reagent and instrumentation as [facility]. Currently there are no coagulation studies available worldwide for children to 14 days, and no normal ranges. Heparin therapeutic range (represented by Anti-Factor Xa activity of 0.2 - 0.4 U/mL) corresponds to PTT of 56.6 - 109.0 sec. INR Coag (PPP) [Relative time] 1.19 {INR} Invalid Interpretation Code [facility] Auto Coag Comment on above: Interpretive Data: I NR results are specifically intended to assess patients stabilized on long-term Anticoagulation therapy suggested INR s Less Intensive Anticoagulation 2.0 3.0 Conventional Range 3.0 4.5 PT Coag (PPP) [Time] 13.4 s High 9.4 - 1 2.5 second(s) [facility] Auto Coag Comment on [...] the same coagulation reagent and instrumentation as [facility]. Currently there are no [...] (Bld) [Mass fraction] 5.6 % Normal <=5.9% [facility] ChemAutoSS HEMATOLOGYOrdered By: SYSTEM [...] Normal 80.0 - 100.0 fL Remisol Heme [place] Absolute 0.5 E9/L Normal 0.2 - 1.0 [...] Heme Basic Metabolic Panelon 12-2 Calcium [Mass/Vol] 9.1219188 mg/dL Normal 8.6-10 .3 mg/dL 66. com Other Chloride [Moles/Vol] 102 mmol/L Normal 98-107 mmol/L 66. com Other CO2 [Moles/Vol] 32.18259103 mmol/L High 21.0-3 1.0 mmol/L 66. com Other Creatinine [Mass/Vol] 1.60932755 mg/dL Normal 0. 70-1.30 mg/dL 66. com Other GFR/1.73 sq M.predicted MDRD (S/P/Bld) [Vol rate/Area] mL/min/{1.73_m2} 66. com Other Glucose [Mass/Vol] 93 mg/dL Normal 70-100 mg/dL 66. com Other Potassium [Moles/Vol] 4.34236222 mmol/L Normal 3 .5-5.1 mmol/L 66. com Other Sodium [Moles/Vol] 138 mmol/L Normal 136-145 mmol/L 66. com Other Urea nitrogen [Mass/Vol] 13 mg/dL Normal 7-25 mg/dL 66. com Other Complete Blood Count Auto Di ffon 11-02-2023 Basophils (Bld) [#/Vol] 0.024940816 10*3/uL Normal 0.0-0.2 10*3/uL 66. com Other Basophils/100 WBC (Bld) 1.000 % . % 66. com Other Eosinophils (Bld) [#/Vol] 0.567893282 10*3/uL Normal 0.0-0.45 10*3/uL 66. com Other Eosinophils/100 WBC (Bld) 2.100 % . % 66. com Other Erythrocyte distribution width (RBC) [Ratio] 14.000 % Normal 12.0-14.8 % 66. com Other Hematocrit (Bld) [Volume fraction] 38.800 % Normal 38.8-50.0 % 66. com Other Hemoglobin (Bld) [Mass/Vol] 13.095433 g/dL Normal 13.0-17.0 g/dL 66. com Other Lymphocytes (Bld) [#/Vol] 1.343327882 10*3/uL Normal 1.00-4.8 10*3/uL 66. com Other Lymphocytes/100 WBC (Bld) 21.800 % . % 66. com Other MCH (RBC) [Entitic mass] 31.5000 pg Normal 27.5-35.2 pg 66. com Other MCV (RBC) [Entitic vol] 92.7000 fL Normal 83.5-101 fL 66. com Other Monocytes (Bld) [#/Vol] 0.369314422 10*3/uL Normal 0.0-0.8 10*3/uL 66. com Other Monocytes/100 WBC (Bld) 8.500 % . % 66. com Other Neutrophils (Bld) [#/Vol] 4.848020323 10*3/uL Normal 1.8-7.7 10*3/uL 66. com Other Neutrophils/100 WBC (Bld) 66.600 % . % 66. com Other Platelet mean volume (Bld) [Entitic vol] 9.4000 fL Normal 6.6-10.1 fL 66. com Other Platelets (Bld) [#/Vol] 153 10*3/uL Normal 150-450 10*3/uL 66. com Other RBC (Bld) [#/Vol] 4.19 10*6/uL Normal 3.90-5.60 66. com Other WBC (Bld) [#/Vol] 6.010801594 10*3/uL Normal 4.1 -10.5 10*3/uL 66. com Other Complete Blood Count Auto Diff 6.1 10*3/uL Normal 4.1-10.5 10*3/uL 66. com Other Complete Blood Count Auto Diff 34.0 g/dL Normal 32.5-35.6 g/dL 66. com Other Complete Blood Count Auto Diff 0.1 /100{WBC} Normal 0-0.5 /100{WBC} 66. com Other Prothrombin Time INRon 06-16 INR Coag (PPP) [Relative time] 2.4 {INR} 66. com Other PT Coag (PPP) [Time] 27.800 s High 9.0-12.9 s [employer] Other Coding Summaryon 05-12-2020 Coding Summary CODING [...] Horan Date Saved: 05/12/2020 02:18 pm Normal [facility] ED Clinical Summaryon 2019 ED Clinical Summary [facility] ? Urgent Care [address] [place], [place] [id number] Clinical Summary PERSON INFORMATION Name: DARIEL ZABALA Age: 80 Years Sex: MALE : 1940 MRN: Acct#: Visit Reason: UC - Ear Problem; BILAT EAR PROBLEM Arrival: 05/08/2020 09:32:00 Discharge: 05/08/2020 10:15:00 LOS: 000 00:43 Check In: 05/08/2020 09:32:00 Checkout: 05/08/2020 10:15:00 Address: [place] [address] PCP: Provider, Unlisted PROVIDER INFORMATION Provider Role [...] Earwax Buildup, Adult Follow-Up: With: Address: When: [facility], [address] [place] [id number] Business (1) Comments: Please follow-up with your Doctor or Dr. Arellano, Medical Doctor continuous pickling line pickler, call their offices and make ointment to be seen in 3 days or sooner for continued care, please purchase [id number] Debrox which helps breakdown earwax, take all your medications as previously prescribed, drink plenty of water for hydration, and return back to urgent care center for any worsening symptoms, concerns, or complications. DIAGNOSIS: 1:Impacted cerumen of both ears Patient Understands: Yes - Patient/family/careg iver verbalizes understanding of instructions given Comment: Normal [facility] ED Patient Summaryon 020 ED Patient Summary [facility] ? Urgent Care [address] [place] [id number] PATIENT DISCHARGE INSTRUCTIONS Patient Information Name: DARIEL ZABALA Age: 80 Years Date of : 1940 Reason For Visit: UC - Ear Problem; BILAT EAR PROBLEM Arrival Time: 05/08/2020 09:32:00 Primary Care Physician: Provider, Unlisted Attending Physician: Larry Billingsley PA-C Comment: Patient Education With: Address: When: [facility], [address] [phone] Business (1) Comments: Please follow-up with your Doctor or Dr. Arellano, Medical Doctor continuous pickling line pickler, call their offices and make ointment to be seen in 3 days or sooner for continued care, please purchase [id number] Debrox which helps breakdown earwax, take all [...] Follow these instructions at home: ? Take [id number] and prescription medicines only as told by [...] clean them according to instructions from the jacquard loom weaver and your health care provider. Contact a [...] 12/08/2005 Document Revised: 10/12/2018 Document Reviewed: 01/11/2018 [employer] Patient Education ? 2019 [employer] Medication Information: The exam and treatment you received today in the [facility] Emergency Department were for an urgent problem and are not intended as complete care. It is important for you to follow up with a doctor, nurse practitioner, or physician?s oncology physician assistant for ongoing care. If your symptoms [...] so we can reach you if necessary. [facility] Emergency Department has provided you with a complete list of medications post discharge. Please inform your wind energy engineer/provider of your visit and for further instruction [...] both ears (H61.23) UC - Ear Problem ([id number]) If you received any narcotics, sedation, or [...] for Disease Control and Prevention July 2014 [facility] Patient Handouton 05-08-2020 Patient Handout Patient [...] Follow these instructions at home: ? Take jqiw-fqx-nqyishx and prescription medicines only as told by [...] clean them according to instructions from the jacquard loom weaver and your health care provider. Contact a [...] 12/08/2005 Document Revised: 10/12/2018 Document Reviewed: 01/11/2018 [employer] Patient Education ? 2019 [employer]. Normal [facility] Recordon 020 Urgent Care Record [facility] ? Urgent Care [address] [id number] PATIENT DISCHARGE INSTRUCTIONS Patient Information Name: DARIEL ZABALA Age: 80 Years Date of : 1940 Reason For Visit: UC - Ear Problem; BILAT EAR PROBLEM Arrival Time: 05/08/2020 09:32:00 Primary Care Physician: Provider, Unlisted Attending Physician: Larry Billingsley PA-C Comment: Visit Diagnosis: Diagnoses This Visit Impacted cerumen of both ears (H61.23) UC - Ear Problem ([id number]) If you received any narcotics, sedation, or [...] legal documents With: Address: When: Andréslisa Arellano [facility], [address] [place] [address] Business (1) Comments: Please follow-up with your Doctor or Dr. Arellano, Medical Doctor continuous pickling line pickler, call their offices and make ointment to be seen in 3 days or sooner for continued care, please purchase [id number] Debrox which helps breakdown earwax, take all your medications as previously prescribed, drink plenty of water for hydration, and return back to urgent care center for any worsening symptoms, concerns, or complications. Medication Information: The exam and treatment you received today in the [facility] were for an urgent problem and are not intended as complete care. It is important for you to follow up with a doctor, nurse practitioner, or physician?s oncology physician assistant for ongoing care. If your symptoms [...] so we can reach you if necessary. [facility] has provided you with a complete list of medications post discharge. Please inform your wind energy engineer/provider of your visit and for further instruction [...] Follow these instructions at home: ? Take xffd-rdu-sbowbki and prescription medicines only as told by [...] clean them according to instructions from the jacquard loom weaver and your health care provider. Contact a [...] 12/08/2005 Document Revised: 10/12/2018 Document Reviewed: 01/11/2018 [employer] Patient Education ? 2019 [employer] Viruses or Bacteria What?s got you [...] for Disease Control and Prevention July 2014 [facility] Vital Signs Date Time Vital Sign Value Performing Clinician Facility 07-23-2025 13:28-0400 Body temperature 98.3 [degF] Yanique Españaann [employer] Work Phone: [facility] 07-23-2025 13:28-0400 Diastolic blood pressure 65 mm[Hg] Yanique Reyes [employer] Work Phone: [facility] 07-23-2025 13:28-0400 Heart rate 65 /min Yanique Españaann [employer] Work Phone: [facility] 07-23-2025 13:28-0400 Respiratory rate 18 /min Yanique Reyes FAT PRESSROOM WORKER[employer] Work Phone: [facility] 07-23-2025 13:28-0400 SaO2% (BldA) [Mass fraction] 98 % Yanique Españaann [employer] Work Phone: [facility] 07-23-2025 13:28-0400 Systolic blood pressure 140 mm[Hg] Yanique Reyes FAT PRESSROOM WORKER[employer] Work Phone: [facility] 07-23-2025 06:00-0400 Body weight 75.5 kg Yanique Reyes [employer] Work Phone: [facility] 07-22-2025 12:49-0400 Body height 180.34 cm Yanique Mcneill FAT PRESSROOM WORKER-BC Work Phone: [facility] 06-23-2025 11:50-0400 Body temperature 97.7 [degF] Erika Crisostomo MD Work Phone: [employer] 06-23-2025 11:50-0400 Diastolic blood pressure 63 mm[Hg] Erika Crisostomo MD Work Phone: [employer] 06-23-2025 11:50-0400 Heart rate 67 /min Erika Crisostomo MD Work Phone: [employer] 06-23-2025 11:50-0400 Respiratory rate 16 /min Erika Crisostomo MD Work Phone: [employer] 06-23-2025 11:50-0400 SaO2% (BldA) [Mass fraction] 99 % Erika Crisostomo MD Work Phone: [employer] 06-23-2025 11:50-0400 Systolic blood pressure 114 mm[Hg] Erika Crisostomo MD Work Phone: [employer] 06-23-2025 04:38-0400 Body mass index (BMI) [Ratio] 22.65 kg/m2 Erika Crisostomo MD Work Phone: [employer] 06-23-2025 04:38-0400 Body weight 71.6 kg Erika Crisostomo MD Work Phone: [employer] 06-19-2025 12:37-0400 Body height 177.8 cm Erika Crisostomo MD Work Phone: [employer] 06-05-2025 15:00-0400 Diastolic blood pressure 47 mm[Hg] Axel Monet DO Work Phone: [employer] 06-05-2025 15:00-0400 Heart rate 71 /min Axel Monet DO Work Phone: [employer] 06-05-2025 15:00-0400 Respiratory rate 15 /min Axel Monet DO Work Phone: [facility] [employer] 06-05-2025 15:00-0400 Systolic blood pressure 110 mm[Hg] Axel [facility]et DO Work Phone: [facility] 06-05-2025 13:00-0400 Body temperature 97.7 [degF] Axel Monet DO Work Phone: [facility] 06-05-2025 06:30-0400 SaO2% (BldA) [Mass fraction] 100 % Axel Monet DO Work Phone: [facility] [employer] 06-05-2025 04:00-0400 Body mass index (BMI) [Ratio] 26.48 kg/m2 Axel Monet DO Work Phone: [facility] [employer] 06-05-2025 04:00-0400 Body weight 83.7 kg Axel Monet DO Work Phone: [facility] [employer] 06-02-2025 10:06-0400 Body height 177.8 cm Axel Monet DO Work Phone: [facility] 11-26-2024 10:27-0500 Body mass index (BMI) [Ratio] 24.74 kg/m2 Emiliano Escamilla MD Work Phone: [facility] 11-26-2024 10:27-0500 Body weight 77.11 kg Emiliano Escamilla MD Work Phone: [facility] 11-26-2024 10:27-0500 Diastolic blood pressure 73 mm[Hg] Emiliano Escamilla MD Work Phone: [facility] 11-26-2024 10:27-0500 Heart rate 87 /min Emiliano Escamilla MD Work Phone: [facility] 11-26-2024 10:27-0500 Systolic blood pressure 148 mm[Hg] Emiliano Escamilla MD Work Phone: [facility] 11-19-2024 14:27-0500 Diastolic blood pressure 82 mm[Hg] Axel Hernández [facility] 11-19-2024 14:27-0500 Heart rate 66 /min Axel Hernández [facility] 11-19-2024 14:27-0500 Mean blood pressure 103 mm[Hg] Axel Edgar [facility] 11-19-2024 14:27-0500 Respiratory rate 18 /min Axel Hernández [facility] 11-19-2024 14:27-0500 SaO2% (BldA) [Mass fraction] 95 % Axel Hernández [facility] 11-19-2024 14:27-0500 Systolic blood pressure 144 mm[Hg] Axel Edgar [facility] 11-19-2024 13:23-0500 Blood Pressure Location Axel Hernández [facility] 11-19-2024 13:23-0500 Body temperature 96.8 [degF] Axel Edgar [facility] 11-19-2024 13:23-0500 Diastolic blood pressure 69 mm[Hg] Axel Edgar [facility] 11-19-2024 13:23-0500 Heart rate 63 /min Axel Edgar [facility] 11-19-2024 13:23-0500 Mean blood pressure 92 mm[Hg] Axel Edgar [facility] 11-19-2024 13:23-0500 Respiratory rate 20 /min Axel Edgar [facility] 11-19-2024 13:23-0500 SaO2% (BldA) [Mass fraction] 99 % Axel Edgar [facility] 11-19-2024 13:23-0500 Systolic blood pressure 139 mm[Hg] Axel Edgar [facility] 11-19-2024 13:05-0500 Body temperature 97.34 [degF] Axel Edgar [facility] 11-19-2024 13:05-0500 Diastolic blood pressure 69 mm[Hg] Axel Edgar [facility] 11-19-2024 13:05-0500 Heart rate 65 /min Axel Edgar [facility] 11-19-2024 13:05-0500 Mean blood pressure 87 mm[Hg] Axel Edgar [facility] 11-19-2024 13:05-0500 Respiratory rate 16 /min Axel Edgar [facility] 11-19-2024 13:05-0500 SaO2% (BldA) [Mass fraction] 97 % Axel Edgar [facility] 11-19-2024 13:05-0500 Systolic blood pressure 122 mm[Hg] Axel Edgar [facility] 11-19-2024 12:40-0500 Body temperature 97.7 [degF] Axel Edgar [facility] 11-19-2024 12:35-0500 Respiratory rate 12 /min Axel Edgar [facility] 11-19-2024 12:30-0500 Body temperature 96.8 [degF] Axel Hernández [facility] 11-19-2024 12:30-0500 Respiratory rate 13 /min Axel Hernández [facility] 11-19-2024 12:25-0500 Body temperature 96.8 [degF] Axel Hernández [facility] 11-19-2024 12:25-0500 Respiratory rate 15 /min Axel Hernández [facility] 11-19-2024 12:20-0500 Body temperature 96.8 [degF] Axel Hernández [facility] 11-19-2024 09:55-0500 Mean blood pressure 85 mm[Hg] Axel Hernández [facility] 11-19-2024 09:52-0500 Mean blood pressure 79 mm[Hg] Axel Hernández [facility] 10-30-2024 10:36-0500 Diastolic blood pressure 67 mm[Hg] Axel Edgar [facility] 10-30-2024 10:36-0500 Heart rate 57 /min Axel Hernández [facility] 10-30-2024 10:36-0500 Mean blood pressure 86 mm[Hg] Axel Hernández [facility] 10-30-2024 10:36-0500 Systolic blood pressure 124 mm[Hg] Axel Hernández [facility] 10-30-2024 10:34-0500 Heart rate 56 /min Axel Hernández [facility] 10-30-2024 10:34-0500 SaO2% (BldA) [Mass fraction] 100 % Axel Hernández [facility] 10-30-2024 10:34-0500 Diastolic blood pressure 83 mm[Hg] Axel Hernández [facility] 10-30-2024 10:34-0500 Mean blood pressure 105 mm[Hg] Axel Hernández [facility] 10-30-2024 10:34-0500 Systolic blood pressure 148 mm[Hg] Axel Hernández [facility] 10-03-2024 10:58-0500 Body height 176.5 cm Axel Hernández DO Work Phone: [facility] 10-03-2024 10:58-0500 Body mass index (BMI) [Ratio] 26.64 kg/m2 Axel Hernández DO Work Phone: [facility] 10-03-2024 10:58-0500 Body temperature 98.1 [degF] Axel Hernández DO Work Phone: [facility] 10-03-2024 10:58-0500 Body weight 83.01 kg Axel Hernández DO Work Phone: [facility] 08-28-2024 14:47-0400 Blood Pressure Location Davie Tristancorriney [facility] 08-28-2024 14:47-0400 Diastolic blood pressure 75 mm[Hg] Davie Hudsonurany [facility] 08-28-2024 14:47-0400 Heart rate 65 /min Davie Acey [facility] 08-28-2024 14:47-0400 Respiratory rate 16 /min Davie Hudsonurany [facility] 08-28-2024 14:47-0400 Systolic blood pressure 119 mm[Hg] Davie Hudsonurany [facility] 06-11-2024 12:48-0400 Diastolic blood pressure 78 mm[Hg] Kashif Kirnus [facility] 06-11-2024 12:48-0400 Heart rate 70 /min Kashif Kirnus [facility] 06-11-2024 12:48-0400 Respiratory rate 18 /min Kashif Kirnus [facility] 06-11-2024 12:48-0400 SaO2% (BldA) [Mass fraction] 97 % Kashif Kirnus [facility] 06-11-2024 12:48-0400 Systolic blood pressure 138 mm[Hg] Kashif Kirnus [facility] 05-30-2024 13:31-0400 Blood Pressure Location Dixon Dubose [facility] 05-30-2024 13:31-0400 Diastolic blood pressure 70 mm[Hg] Dixon Dubose [facility] 05-30-2024 13:31-0400 Heart rate 75 /min Dixon Dubose [facility] 05-30-2024 13:31-0400 Respiratory rate 18 /min Dixon Dubose [facility] 05-30-2024 13:31-0400 SaO2% (BldA) [Mass fraction] 95 % Dixon Dubose [facility] 05-30-2024 13:31-0400 Systolic blood pressure 130 mm[Hg] Dixon Dubose [facility] 04-20-2024 13:17-0400 Diastolic blood pressure 78 mm[Hg] Kashif Kirnus [facility] 04-20-2024 13:17-0400 Heart rate 62 /min Kashif Kirnus [facility] 04-20-2024 13:17-0400 SaO2% (BldA) [Mass fraction] 97 % Kashif Kirnus [facility] 04-20-2024 13:17-0400 Systolic blood pressure 138 mm[Hg] Kashif Kirnus [facility] 03-26-2024 14:30-0400 Diastolic blood pressure 64 mm[Hg] Axel Hernández [facility] 03-26-2024 14:30-0400 Heart rate 50 /min Axel Hernández [facility] 03-26-2024 14:30-0400 Respiratory rate 16 /min Axel Edgar [facility] 03-26-2024 14:30-0400 SaO2% (BldA) [Mass fraction] 98 % Axel Edgar [facility] 03-26-2024 14:30-0400 Systolic blood pressure 128 mm[Hg] Axel Edgar [facility] 03-26-2024 13:31-0400 Heart rate 54 /min Axle Edgar [facility] 03-26-2024 13:31-0400 SaO2% (BldA) [Mass fraction] 97 % Axel Edgar [facility] 03-26-2024 13:31-0400 Respiratory rate 16 /min Axel Edgar [facility] 03-26-2024 13:30-0400 Body temperature 97.34 [degF] Axel Edgar [facility] 03-26-2024 13:29-0400 Blood Pressure Location Axel Edgar [facility] 03-26-2024 13:29-0400 Diastolic blood pressure 70 mm[Hg] Axel Hernández [facility] 03-26-2024 13:29-0400 Mean blood pressure 88 mm[Hg] Axel Hernández [facility] 03-26-2024 13:29-0400 Systolic blood pressure 125 mm[Hg] Axel Hernández [facility] 03-26-2024 13:20-0400 Body temperature 97.52 [degF] Axel Hernández [facility] 03-26-2024 13:20-0400 Diastolic blood pressure 63 mm[Hg] Axel Hernández [facility] 03-26-2024 13:20-0400 Heart rate 54 /min Axel Edgar [facility] 03-26-2024 13:20-0400 Mean blood pressure 77 mm[Hg] Axel Edgar [facility] 03-26-2024 13:20-0400 Respiratory rate 15 /min Axel Edgar [facility] 03-26-2024 13:20-0400 SaO2% (BldA) [Mass fraction] 97 % Axel Edgar [facility] 03-26-2024 13:20-0400 Systolic blood pressure 104 mm[Hg] Axel Hernández [facility] 03-26-2024 13:15-0400 Mean blood pressure 73 mm[Hg] Axel Edgar [facility] 03-26-2024 13:15-0400 Respiratory rate 15 /min Axel Edgar [facility] 03-26-2024 13:10-0400 Mean blood pressure 72 mm[Hg] Axel Edgar [facility] 03-26-2024 13:10-0400 Respiratory rate 11 /min Axel Edgar [facility] 03-26-2024 12:55-0400 Body temperature 97.52 [degF] Axel Hernández [facility] 03-26-2024 12:50-0400 Respiratory rate 1 /min Axel Hernández [facility] 03-26-2024 09:36-0400 Blood Pressure Location Axel Hernández [facility] 03-26-2024 09:36-0400 Mean blood pressure 112 mm[Hg] Axel Hernández [facility] 03-26-2024 09:34-0400 Mean blood pressure 97 mm[Hg] Axel Edgar [facility] 03-26-2024 09:34-0400 Body temperature 97.34 [degF] Axel Edgar [facility] 03-26-2024 09:34-0400 Blood Pressure Location Axel Edgar [facility] 03-26-2024 09:34-0400 Heart rate 50 /min Axel Hernández [facility] 03-06-2024 08:11-0400 Blood Pressure Location Axel Hernández [facility] 03-06-2024 08:11-0400 Diastolic blood pressure 74 mm[Hg] Axel Edgar [facility] 03-06-2024 08:11-0400 Heart rate 56 /min Axel Edgar [facility] 03-06-2024 08:11-0400 Mean blood pressure 98 mm[Hg] Axel Edgar [facility] 03-06-2024 08:11-0400 Systolic blood pressure 147 mm[Hg] Axel Edgar [facility] 03-06-2024 08:11-0400 Heart rate 57 /min Axel Edgar [facility] 03-06-2024 08:11-0400 SaO2% (BldA) [Mass fraction] 98 % Axel Edgar [facility] 03-06-2024 08:10-0400 Blood Pressure Location Axel Edgar [facility] 03-06-2024 08:10-0400 Body temperature 98.06 [degF] Axel Edgar [facility] 03-06-2024 08:10-0400 Diastolic blood pressure 73 mm[Hg] Axel Edgar [facility] 03-06-2024 08:10-0400 Mean blood pressure 92 mm[Hg] Axel Hernández [facility] 03-06-2024 08:10-0400 Systolic blood pressure 129 mm[Hg] Axel Hernández [facility] 03-06-2024 08:10-0400 Respiratory rate 18 /min Axel Hernández [facility] 11-18-2023 11:00-0500 Body height 180.34 cm Jada Rene [employer] Other 11-18-2023 11:00-0500 Body mass index (BMI) [Ratio] 25.38 kg/m2 Jada Rene [employer] Other 11-18-2023 11:00-0500 Body temperature 97.6 [degF] Jada Rene [employer] Other 11-18-2023 11:00-0500 Body weight 82.56 kg Jada Rene [employer] Other 11-18-2023 11:00-0500 Diastolic blood pressure 80 mm[Hg] Jada Rene [employer] Other 11-18-2023 11:00-0500 Respiratory rate 18 /min Jada Rene [employer] Other 11-18-2023 11:00-0500 SaO2% (BldA) [Mass fraction] 99 % Jada Rene [employer] Other 11-18-2023 11:00-0500 Systolic blood pressure 132 mm[Hg] Jada Rene [employer] Other 11-02-2023 13:00-0500 Body height 180.34 cm Jadaendy Rene [employer] Other 11-02-2023 13:00-0500 Body mass index (BMI) [Ratio] 24.4 kg/m2 Jadaendy Rene [employer] Other 11-02-2023 13:00-0500 Body weight 79.38 kg Jadaendy Rene [employer] Other 11-02-2023 13:00-0500 Diastolic blood pressure 82 mm[Hg] Jadamary Rene [employer] Other 11-02-2023 13:00-0500 Respiratory rate 18 /min Jadamary Rene [employer] Other 11-02-2023 13:00-0500 SaO2% (BldA) [Mass fraction] 97 % Jadamary Rene [employer] Other 11-02-2023 13:00-0500 Systolic blood pressure 138 mm[Hg] Jada Edgard [employer] Other 09-21-2023 10:00-0500 Body height 180.34 cm Jadaendy Rene [employer] Other 09-21-2023 10:00-0500 Body mass index (BMI) [Ratio] 25.81 kg/m2 Jadaendy Rene [employer] Other 09-21-2023 10:00-0500 Body weight 83.96 kg Jada Rene [employer] Other 09-21-2023 10:00-0500 Diastolic blood pressure 70 mm[Hg] Jada Rene [employer] Other 09-21-2023 10:00-0500 Respiratory rate 18 /min Jada Rene [employer] Other 09-21-2023 10:00-0500 SaO2% (BldA) [Mass fraction] 98 % Jada Rene [employer] Other 09-21-2023 10:00-0500 Systolic blood pressure 140 mm[Hg] Jada Rene [employer] Other 06-16-2023 11:00-0400 Body height 180.34 cm Jada Rene [employer] Other 06-16-2023 11:00-0400 Body mass index (BMI) [Ratio] 23.79 kg/m2 Jada Rene [employer] Other 06-16-2023 11:00-0400 Body weight 77.38 kg Jada Rene [employer] Other 06-16-2023 11:00-0400 Diastolic blood pressure 64 mm[Hg] Jada Rene [employer] Other 06-16-2023 11:00-0400 Respiratory rate 18 /min Jada Rene [employer] Other 06-16-2023 11:00-0400 SaO2% (BldA) [Mass fraction] 98 % Jada Rene [employer] Other 06-16-2023 11:00-0400 Systolic blood pressure 118 mm[Hg] Jadaendy Rene [employer] Other Encounters Encounter Date Encounter Type Care Provider Facility Start: 05-13-2026 ambulatory YANIQUE A REYES Facili ty:[facility] [place] Start: 08-08-2025 ambulatory YANIQUE A REYES Facili ty:[facility] Start: 08-05-2025 ambulatory YANIQUE REYES Facility :[id number] Start: 07-31-2025 ambulatory Zechariah CREWS Facility : [place] Start: 07-25-2025 End: 07-25-2025 ambulatory YANIQUE A REYES Facility:[facility] Start: 07-24-2025 ambulatory YANIQUE REYES Facility : [place] Start: 07-24-2025 End: 07-31-2025 ambulatory YANIQUE A REYES Facility:[id number] Start: 07-22-2025 End: 07-22-2025 External Result [...] / Non-visit Axel marshall MD -[facility] Work Phone: Start: 07-19-2025 End: 07-23-2025 Evaluation and management of inpatient Mohamad Billy Facility:[facility] Start: 07-11-2025 End: 07-11-2025 ambulatory YANIQUE A REYES Facility:[facility] Start: 07-08-2025 End: 07-08-2025 ambulatory Jaden Maravilla Facility:[facility] [place] Start: 07-05-2025 End: 07-22-2025 ambulatory YANIQUE A REYES Facility:CD:[id number] Start: 07-04-2025 End: 07-04-2025 ambulatory YANIQUE A REYES Facility:[facility] [place] Start: 06-19-2025 ambulatory YANIQUE A REYES Facili ty:[facility] Start: 06-17-2025 End: 06-23-2025 Evaluation and management of inpatient Mirian Carranza MD Work Phone: [facility] - [facility] 8 Acute Comment on above: 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 ([facility]) (Primary Dx) Start: 06-14-2025 End: 06-18-2025 ambulatory YANIQUE A REYES Facility:[id number] Start: 06-13-2025 End: 06-13-2025 ambulatory YANIQUE A REYES Facility:[facility] [place] Start: 06-07-2025 End: 06-13-2025 ambulatory YANIQUE A REYES Facility:CD:[id number] Start: 06-07-2025 End: 06-07-2025 ambulatory YANIQUE A REYES Facility:[facility] Start: 06-02-2025 End: 06-05-2025 Evaluation and management of inpatient Axel Monet DO Work Phone: [facility] Comment on above: Hyponatremia (Primar y Dx) Start: 05-20-2025 End: 05-20-2025 Lab Drop off YANIQUE A REYES [facility] Start: 05-20-2025 End: 05-20-2025 ambulatory YANIQUE MCNEILL Facility:[facility] Start: 05-09-2025 End: 05-09-2025 ambulatory Edwin Garcia Facility:[facility] Start: 02-05-2025 End: 02-06-2025 Lab Drop off Edwin Garcia [facility] Start: 02-05-2025 End: 02-06-2025 ambulatory Edwin Garcia Facility:[facility] Start: 01-24-2025 End: 01-24-2025 Lab Drop off Edwin Garcia [facility] Start: 01-24-2025 End: 01-24-2025 ambulatory Edwin Garcia Facility:[facility] Start: 01-09-2025 End: 01-09-2025 Lab Drop off Edwin Garcia [facility] Start: 01-09-2025 End: 01-09-2025 ambulatory MD Edwin Garcia Facility:[facility] Start: 12-31-2024 End: 12-31-2024 Lab Drop off Edwin Garcia [facility] Start: 12-31-2024 End: 12-31-2024 ambulatory MD Edwin Garcia Facility:[facility] Start: 12-24-2024 End: 12-24-2024 ambulatory Edwin Garcia Facility:[facility] Start: 12-17-2024 End: 12-17-2024 Lab Drop off Edwin Garcia [facility] Start: 12-17-2024 End: 12-17-2024 ambulatory Edwin Garcia Facility:[facility] Start: 12-17-2024 End: 01-22-2025 ambulatory Edwin Garcia Facility:[id number] Start: 11-28-2024 End: 11-28-2024 Bamboo flowsheet Jose L Chow RIGGER CHIEF Work Phone: [facility] Start: 11-28-2024 End: 11-28-2024 Bamboo flowsheet Jose L Chow RIGGER CHIEF Work Phone: [facility] Start: 11-28-2024 End: 11-28-2024 Postop follow up visit related to original px Jose L Chow RIGGER CHIEF Work Phone: [facility] Comment on [...] day surgery center Axel Hernández [facility] Start: 11-19-2024 End: 11-19-2024 ambulatory Axel Hernández Facility:[facility] Start: 11-13-2024 ambulatory Edwin Garcia Facility :[facility] [place] Start: 11-12-2024 End: 11-12-2024 Lab Drop off Edwin Garcia [facility] Start: 11-12-2024 End: 11-12-2024 ambulatory Edwin Garcia Facility:[facility] Start: 11-01-2024 End: 11-01-2024 ambulatory Edwin Garcia Facility:[facility] [place] Start: 10-30-2024 End: 10-30-2024 ambulatory Axel Hernández Facility:[facility] Start: 10-30-2024 End: 10-30-2024 Patient encounter procedure Axel Hernández [facility] Start: 10-03-2024 End: 10-03-2024 Bamboo flowsheet [...] Farrell MD Work Phone: [facility] Start: 09-28-2024 End: 09-28-2024 [...] Start: 09-10-2024 End: 09-10-2024 ambulatory Edwin Garcia Facility:[facility] [place] Start: 08-28-2024 End: 08-28-2024 ambulatory Davie Vargas Facility:[facility] Start: 08-28-2024 End: 08-28-2024 Patient encounter procedure Davie Vargas [facility] [place] Start: 08-20-2024 End: 08-20-2024 Telephone encounter Shala Farrell MD Work Phone: [facility] Start: 08-13-2024 End: 08-13-2024 ambulatory Nathaniel Bonilla MD Facility: [place] Start: 08-07-2024 End: 08-07-2024 ambulatory Edwin Garcia Facility: [facility] [place] Start: 07-31-2024 End: 07-31-2024 ambulatory Edwin Garcia Facility: [facility] Start: 07-24-2024 End: 07-24-2024 ambulatory Edwin Garcia Facility: [facility] Start: 07-23-2024 ambulatory Edwin Garcia Facility :[facility] Start: 07-05-2024 ambulatory Axel Hern[facility]dez [facility] Start: 07-03-2024 End: 07-03-2024 ambulatory Edwin Garcia Facility: [facility] [place] Start: 06-20-2024 End: 06-20-2024 ambulatory AXEL HERNÁNDEZ Not Available Start: 06-11-2024 End: 06-11-2024 ambulatory XXXX NONE Facility:[facility] Start: 06-11-2024 End: 06-11-2024 Patient encounter procedure Kasihf Barnett [facility] Start: 05-30-2024 End: 05-30-2024 ambulatory Edwin Garcia Facility:[facility] Start: 05-30-2024 End: 05-30-2024 Patient encounter procedure Dixon Endy Gracy [facility] Start: 05-21-2024 End: 05-21-2024 Patient encounter procedure Kashif Costaromina [facility] Start: 05-01-2024 End: 05-01-2024 Patient encounter procedure Kashif Costaromina [facility] Start: 05-01-2024 End: 05-01-2024 Lab Drop off Edwin Garcia [facility] Start: 04-20-2024 End: 04-20-2024 Patient encounter procedure Kashif Hazel Costaromina [facility] Start: 04-04-2024 End: 04-04-2024 ambulatory AXEL HERNÁNDEZ Not Available Start: 03-26-2024 End: 03-26-2024 Admission to same day surgery center Axel Hernández [facility] Start: 03-06-2024 End: 03-06-2024 Patient encounter procedure Axel Hernández [facility] Start: 02-15-2024 End: 02-15-2024 ambulatory AXEL HERNÁNDEZ Not Available Start: 02-15-2024 End: 02-15-2024 ambulatory AXEL HERNÁNDEZ Not Available Start: 12-06-2023 End: 12-06-2023 ambulatory Jadaendy Rene Other [employer] Other Start: 12-06-2023 Telephone encounter Jada Rene [facility] Medicine [place] Start: 12-02-2023 End: 12-02-2023 ambulatory Ajdaendy Rene Other [employer] Other Start: 12-02-2023 Telephone encounter Jada Rene [facility] Family Medicine [place] Start: 12-01-2023 End: 12-01-2023 Lab Drop off Edwin GarnerShanna Adam [facility] Start: 11-18-2023 End: 11-18-2023 ambulatory Jadaendy Rene Other [employer] Other Start: 11-18-2023 Office outpatient vi sit 25 minutes Jadamary Rene [facility] Medicine [place] Start: 11-02-2023 End: 11-02-2023 ambulatory Jadaendy Rene Other [employer] Other Start: 11-02-2023 Office outpatient vi sit 25 minutes Jada Rene [facility] Family Medicine [place] Start: 11-02-2023 Telephone encounter Jada Rene [facility] Family Medicine [place] Start: 10-28-2023 End: 10-28-2023 ambulatory Jadaendy Rene Other [employer] Other Start: 10-28-2023 Telephone encounter Jada Rene 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 Family Medicine [place] Start: 09-21-2023 End: 09-21-2023 ambulatory Jadaendy Rene Other [employer] Other Start: 09-21-2023 Office outpatient vi sit 25 minutes Jadamary Rene [facility] Family Medicine [place] Start: 08-29-2023 End: 08-29-2023 ambulatory Jada Edgard Other [employer] Other Start: 08-29-2023 Telephone encounter Jadaendy Rene [facility] Family Medicine [place] Start: 08-26-2023 End: 08-26-2023 ambulatory Jada Rene Other [employer] Other Start: 08-26-2023 Telephone encounter Jadaendy Rene [facility] Family Medicine [place] Start: 08-08-2023 End: 08-08-2023 ambulatory Jada Rene Other [employer] Other Start: 08-08-2023 Telephone encounter Jadaendy Rene [facility] Family Medicine [place] Start: 07-27-2023 End: 07-27-2023 ambulatory Jada Edgard Other [employer] Other Start: 07-27-2023 Telephone encounter Jadaendy Rene [facility] Medicine [place] Start: 06-16-2023 End: 06-16-2023 ambulatory Jadaendy Rene Other [employer] Other Start: 06-16-2023 Office outpatient ne w 45 minutes Jadamary Rene [facility] Family Medicine [place] Start: 06-16-2023 Telephone encounter Jadaendy Rene [facility] [place] Procedures Date Procedure Procedure Detail Performing Clinician [...] MD Work Phone: Start: 06-21-2025 Electrolyte panel oJse Miguel Maria MD Work Phone: Start: 06-21-2025 [...] TO MG FOR LOW K Adore Cueto EXTRACT MIXER - RIGGER CHIEF Work Phone: Start: 06-03-2025 End: 06-04-2025 Prothrombin time Adore Cueto EXTRACT MIXER - RIGGER CHIEF Work Phone: Start: 06-02-2025 Glucose blood reagen t strip Brigida Valeriano Pina DO Work Phone: Start: 06-02-2025 Glucose blood reagen t strip Brigida J Orlop DO Work Phone: Start: 06-02-2025 BASIC METABOLIC PANE L W/ REFLEX TO MG FOR LOW K Leelee Easley EXTRACT MIXER - SCALES INSPECTOR Work Phone: Start: 06-02-2025 End: 06-02-2025 Prothrombin time Leelee Easley EXTRACT MIXER - SCALES INSPECTOR Work Phone: Start: 11-19-2024 [facility] CAPILLARY GLUCO SE POC [...] (Diabetes, CKD 3-4, OR last GFR 15-59) [facility] Start: 07-23-2025 [facility] Start: 07-22-2025 Referral to urologist [facility] Start: 07-20-2025 Administration of prophylactic treatment [facility] Start: 07-20-2025 Referral to general surgeon [facility] Start: 07-19-2025 Hospital admission [facility] Start: 07-19-2025 Referral to infectio us diseases physician [facility] Start: 07-19-2025 [facility] Start: 07-15-2025 Influenza vaccination Influenza Vacc ine (#1) [facility] Start: 06-14-2025 Influenza vaccination Flu [facility] (# [facility]) [facility] Start: 06-12-2025 End: 06-05-2026 Basic metabolic 2000 panel - Serum or Plasma Basic Metabolic Panel Lab Routine Hyponatremia Expected: 06/12/2025, Expires: 06/05/2026 [employer] Comment on above: Expected: 06/12/2025 , Expires: 06/05/2026 Start: 03-29-2025 COVID-19 Vaccine ( season) COVID-19 Vaccine ( season) [employer] [facility] Start: 12-26-2024 End: 12-26-2024 Patient encounter procedure 12/26/2024 1:45 PM EST Office Visit [facility] [address] [place] [address] Jose L Chow, RIGGER CHIEF [address] [place], [place] [id number] [facility] Start: 11-28-2024 End: 11-28-2024 Patient encounter procedure [facility] Comment on above: Arrived Start: 11-26-2024 End: 11-26-2024 Patient encounter procedure 11/26/2024 10:30 AM EST Office Visit [facility] [address] [place] [address] Emiliano Escamilla MD [address] [facility] [address] [place], [place] [id number] Arrived [facility] Comment on above: Arrived Start: 11-14-2024 Annual Wellness Visi t (Medicare Advantage) Annual Wellness Visit (Medicare Advantage) [facility] Start: 10-03-2024 End: 10-03-2025 ECG 12 lead ECG 12 lead ECG Routine Pre-op testing Expected: 10/03/2024 (Approximate), Expires: 10/03/2025 [facility] Work Phone: Comment on above: Expected: 10/03/2024 (Approximate), Expires: 10/03/2025 Start: 10-03-2024 End: 10-03-2024 Patient encounter procedure 10/03/2024 10:45 AM EST Office Visit [facility] [address] [facility] [address] [place] [address] Axel Hernández, [address] [place] [address] Right hand pain (Primary Dx); Arm weakness [facility] Comment on above: Right hand pain (Holly ayaan Dx); Arm weakness Start: 07-15-2024 Influenza vaccination Influenza Vacc ine (#1) [facility] Start: 07-15-2023 Influenza vaccination Influenza Vacc ine (#1) [facility] Start: 01-01-2023 Advance Directive Discussion Advance Directive Discussion [facility] Start: 11-14-2022 Depression Assessment Depression Ass essment [facility] Start: 2017 Respiratory Syncytia l Virus (RSV) or age 60 yrs+ (1 - 1-dose 75+ series) Respiratory Syncytial Virus (RSV) or age 60 yrs+ (1 - 1-dose 75+ series) [facility] Start: 03-31-2016 Pneumococcal Vaccine : 65+ (2 - PPSV23 or PCV20) Pneumococcal Vaccine: 65+ (2 - PPSV23 or PCV20) [facility] Start: 03-31-2016 Pneumococcal Vaccine : 65+ Years (2 of 2 - PPSV23 or PCV20) Pneumococcal Vaccine: 65+ Years (2 of 2 - PPSV23 or PCV20) [facility] Start: 03-24-2016 Hepatitis B surface antibody level LDL Cholesterol [facility] Start: 09-24-2015 Hemoglobin A1c/Hemoglobin.total in Blood HbA1C [facility] Start: 08-01-2015 3 comp foot exam completed Diabetic Foot Exam [facility] Start: 07-25-2015 Hepatitis B screening Urine Albumin:Creatinine Ratio [facility] Start: 02-01-2015 Urine microalbumin profile DTaP,Tdap,Td Vaccine (1 - Tdap) [facility] Start: 10-24-2013 Shingles vaccine (2 of 3) Keyes gles vaccine (2 of 3) [facility] Start: 10-24-2013 Shingrix Vaccine (2 of 3) Keyes grix Vaccine (2 of 3) [facility] Start: 09-14-2012 Hepatitis C antibody , confirmatory test Dilated Retinal Exam [facility] Start: 2002 RSV Vaccine (1 - 1-d ose 60+ series) RSV Vaccine (1 - 1-dose 60+ series) [facility] Start: 1961 DTaP/Tdap/Td vaccine (1 - Tdap) DTaP/Tdap/Td vaccine (1 - Tdap) [facility] Start: 1960 Urine screening for protein Diabetic Alb to Cr ratio (uACR) test [facility] Start: 1954 Depression Screen Depression Screen [facility] Start: 1952 Lipid panel Lipids [facility] Start: 1942 Covid-19 Vaccine (#1) Covid-19 Vacci ne (#1) [facility] End: 06-19-2025 Baseline Routine EEG Baseline Routine EEG Neurology Routine Once for 1 Occurrences starting 06/19/2025 until 06/19/2025 [employer] Comment on above: Once for 1 Occurrenc es starting 06/19/2025 until 06/19/2025 End: 06-13-2025 Basic metabolic 2000 panel - Serum or Plasma Basic Metabolic Panel Lab Routine Tomorrow AM for 10 Occurrences starting 06/04/2025 until 06/13/2025, 1 completed [employer] Comment on above: Tomorrow AM for 10 O ccurrences starting 06/04/2025 until 06/13/2025, 1 completed Basic metabolic 2000 panel - Serum or Plasma Basic Metabolic Panel Lab Routine Lab max of 3 days, Daily, for lab use only until discontinued starting 06/18/2025, 6 completed [employer] Comment on above: Lab max of 3 days, D aily, for lab use only until discontinued starting 06/18/2025, 6 completed End: 06-25-2025 Blood count hemoglobin Hemoglobin Lab Routine Every Other Day for 3 Days starting 06/23/2025 until 06/25/2025 [employer] Comment on above: Every Other Day for 3 Days starting 06/23/2025 until 06/25/2025 CBC W Auto Different ial panel - Blood CBC auto differential Lab Routine Lab max of 3 days, Daily, for lab use only until discontinued starting 06/17/2025, 7 completed [employer] Comment on above: Lab max of 3 days, D aily, for lab use only until discontinued starting 06/17/2025, 7 completed Continuous pulse oximetry Pulse oximetry, continuous Respiratory Care Routine Every 4hr until discontinued starting 06/02/2025 [employer] Comment on above: Every 4hr until disc ontinued starting 06/02/2025 End: 06-08-2025 Electrolyte Panel Electrolyte Panel Lab Routine Every 8 Hours (Lab) for 3 Days starting 06/05/2025 until 06/08/2025, 1 completed [employer] Work Phone: Comment on above: Every 8 Hours (Lab) for 3 Days starting 06/05/2025 until 06/08/2025, 1 completed End: 06-25-2025 Electrolyte panel Electrolyte panel Lab Routine Lab max of 3 days, Every 8hr, lab use only for 3 Days starting 06/22/2025 until 06/25/2025, 2 completed [employer] Work Phone: Comment on above: Lab max of 3 days, E very 8hr, lab use only for 3 Days starting 06/22/2025 until 06/25/2025, 2 completed Glucose [Mass/volume ] in Serum or Plasma [facility] Comment on above: As Needed until disc ontinued starting 06/02/2025 4X Daily (AC & HS) u ntil discontinued starting 06/02/2025 End: 06-23-2025 Holter monitor study EEG Video Monitoring Daily Neurology Routine Lab max of 3 days, Daily, for lab use only for 5 Occurrences starting 06/19/2025 until 06/23/2025, 1 completed [employer] Comment on above: Lab max of 3 days, D aily, for lab use only for 5 Occurrences starting 06/19/2025 until 06/23/2025, 1 completed Holter monitor study EEG Video M onitoring Daily Neurology Routine 06/20/2025 6:06 PM EDT [employer] Magnesium [Mass/volu me] in Serum or Plasma Magnesium Lab Routine Lab max of 3 days, Daily, for lab use only until discontinued starting 06/23/2025, 1 completed [employer] Comment on above: Lab max of 3 days, D aily, for lab use only until discontinued starting 06/23/2025, 1 completed End: 06-23-2025 Magnesium [Mass/volume] in Serum or Plasma Magnesium Lab Routine Once for 1 Occurrences starting 06/23/2025 until 06/23/2025 [employer] Work Phone: Comment on above: Once for 1 Occurrenc es starting 06/23/2025 until 06/23/2025 Nasal Cannula Oxygen Nasal Cannu la Oxygen Respiratory Care Routine Daily until discontinued starting 06/05/2025 [employer] [email or web address] [facility] Comment on above: Daily until disconti nued starting 06/05/2025 Oxygen Therapy - Carly ntain SpO2: 90%; *TANK CLEANER Guidelines for O2: Yes; Document: \phsi.[employer]ica[employer] [place]\epic \EPIC_Reference\Orders\Re spiratory Care Guidelines\CPG Oxygen 2022.pdf Oxygen Therapy - Maintain SpO2: 90%; *TANK CLEANER Guidelines for O2: Yes; Document: \timeplazza.[employer] [place]\e pic\EPIC_Reference\Ord ers\Respiratory Care Guidelines\CPG Oxygen 2022.pdf Respiratory Care Routine As Needed until discontinued starting 06/17/2025 [employer] Work Phone: Comment on above: As Needed until disc ontinued starting 06/17/2025 Oxygen therapy [[facility] Data Set] Initiate Oxygen Therapy Protocol Respiratory Care Routine As Needed until discontinued starting 06/02/2025 [employer] Work Phone: Comment on above: As Needed until disc ontinued starting 06/02/2025 Patient Education Low-fiber diet Know your Meds [facility] Work Phone: Patient referral [facility] Work Phone: End: 06-24-2025 Platelets [#/volume] in Blood Platelet count Lab Routine Every Third Day for 3 Days starting 06/24/2025 until 06/24/2025 [employer] Comment on above: Every Third Day for 3 Days starting 06/24/2025 until 06/24/2025 Protime & INR Protime & INR La b Routine Daily until discontinued starting 06/19/2025, 4 completed [employer] Comment on above: Daily until disconti nued starting 06/19/2025, 4 completed End: 06-12-2025 Protime-INR Protime-INR Lab Routine Daily for 8 Days starting 06/05/2025 until 06/12/2025, 1 completed [employer] Comment on above: Daily for 8 Days sta rting 06/05/2025 until 06/12/2025, 1 completed End: 06-02-2025 Respiratory care evaluation only Respiratory care evaluation only Respiratory Care Routine One Time for 1 Occurrences starting 06/02/2025 until 06/02/2025 [employer] Comment on above: One Time for 1 Occur rences starting 06/02/2025 until 06/02/2025 [facility] Immunizations Immunization Date Immunization Notes Care Provider [facility] 09-29-2024 influenza, high dose seasonal, preservative-free Erika Crisostomo MD Work Phone: [facility] 09-29-2024 influenza virus vaccine, unspecified formulation Axel Hernández DO Work Phone: [facility] 09-21-2023 Prevnar 20 Jada Rene Other [facility] 08-19-2023 Covid-19, Mrna, Lnp- s, Pf,brigette-sucrose,30 Mcg/0.3ml Seasonal Erika Crisostomo MD Work Phone: [facility] 08-19-2023 Flu Shot - Documentation Purposes Only Jadaendy Rene Other [employer] Other 08-19-2023 influenza virus vaccine, unspecified formulation Edwin Garcia [facility] 08-14-2022 influenza, seasonal, injectable Jadaendy Rene Other [facility] 03-31-2021 Influenza, High-dose , Quadrivalent Erika Crisostomo MD Work Phone: [facility] 03-31-2015 pneumococcal conjuga te vaccine, 13 valent Jada Rene Other [facility] 08-02-2014 influenza, high dose seasonal, preservative-free Venessa Riggins RN [facility] 08-02-2014 influenza virus vaccine, unspecified formulation Venessa Riggins RN [facility] 08-29-2013 zoster vaccine, live eVnessa terrell RN [facility] 08-09-2013 influenza virus vaccine, unspecified formulation Venessa Riggins RN [facility] 07-31-2012 influenza virus vaccine, unspecified formulation Venessa Riggins RN [facility] Work Phone: 03-07-2012 TD(adult) unspecifie d formulation Erika Crisostomo MD Work Phone: [employer] 03-07-2012 tetanus and diphther ia toxoids, adsorbed, preservative free, for adult use (2 Lf of tetanus toxoid and 2 Lf of diphtheria toxoid) Venessa Riggins RN [facility] Work Phone: 08-07-2011 influenza virus vaccine, unspecified formulation Venessa Riggins RN [facility] Work Phone: NEGATED: Highlighted row has not occurred!08-28-2024 influenza virus vaccine, unspecified formulation Davie Hudsonanahi [facility] General Surgery [place] Payers Date Payer Category Payer Medicare [id number] 2025 Self-pay 2025 Private Health Insurance [id number] 2025 Medicaid [employer] MEDICARE A DVANTAGE [id number] 2025 Medicare HMO [employer] MEDICARE [id number] 2025 Private Health Insurance [id number] 2023 Medicare (Managed Care) [employer] [id number] 2023 Unknown [employer] [facility] [id number] 2023-Present [address] [place] [address] [id number] 2023 Unknown [id number] 2.16.840.1.960923.19 2023 Medicare [id number] [id number]. [id number] 1942 Unknown [id number] 2.16.840.1.798356.3.579.2. 196 1942 Unknown [id number] 2.16.840.1.454871.3.579.2. 727 1942 Unknown [id number] 2.16.840.1.348334.3.579.2. 727 1942 Unknown [id number] 2.16.840.1.169458.3.579.2. 727 1942 Unknown [id number] 2.16.840.1.535263.3.579.2. 727 1942 Unknown [id number] 2.16.840.1.275402.3.579.2. 1259 1942 Unknown [id number] 2.16.840.1.685646.3.579.2. 1258 1942 Unknown [id number] 2.16.840.1.038815.3.579.2. 1258 1942 Unknown [id number] 2.16.840.1.652058.3.579.2. 1258 1942 Unknown [id number] 2.16.840.1.537187.3.579.2. 1258 1942 Unknown [id number] 2.16.840.1.795125.3.579.2. 1258 1942 Unknown [id number] 2.16.840.1.913730.3.579.2. 1258 1942 Unknown [id number] 2.16.840.1.704713.3.579.2. 1258 1942 Unknown [id number] 2.16.840.1.502251.3.579.2. 1258 1942 Unknown [id number] 2.16.840.1.615996.3.579.2. 1942 Unknown [id number] 2.16.840.1.705096.3.579.2. 1942 Unknown [id number] 2.16.840.1.012718.3.579.2. 1942 Unknown [id number] 2.16.840.1.117340.3.579.2 1942 Unknown [id number] 2.16.840.1.700704.3.579.2. 1942 Unknown [id number] 2.16.840.1.268158.3.579.2 1942 Unknown [id number] 2.16.840.1.118900.3.579.2. 1942 Unknown [id number] 2.16.840.1.607432.3.579.2. 727 1942 Unknown [id number] 2.16.840.1.944993.3.579.2. 72 1942 Unknown [id number] 2.16.840.1.473716.3.579.2. 72 1942 Unknown [id number] 2.16.840.1.192336.3.579.2. 72 1942 Unknown [id number] 2.16.840.1.267294.3.579.2. 72 1942 Unknown [id number] 2.16.840.1.885498.3.579.2. 1942 Unknown [id number] 2.16.840.1.709038.3.579.2. 1942 Unknown [id number] 2.16.840.1.349735.3.579.2. 1942 Unknown [id number] 2.16.840.1.369498.3.579.2. 1942 Unknown [id number] 2.16.840.1.533968.3.579.2. 1942 Unknown [id number] 2.16.840.1.281107.3.579.2. 175 1942 Unknown [id number] 2.16.840.1.801955.3.579.2. 72 1942 Unknown [id number] 2.16.840.1.079470.3.579.2. 72 1942 Unknown [id number] 2.16.840.1.077040.3.579.2. 1942 Unknown [id number] 2.16.840.1.750938.3.579.2. 72 1942 Unknown [id number] 2.16.840.1.502603.3.579.2. 72 1942 Unknown [id number] 2.16.840.1.152145.3.579.2. 72 1942 Unknown [id number] 2.16.840.1.025863.3.579.2. 1942 Unknown [id number] 2.16.840.1.178734.3.579.2. 1942 Unknown [id number] 2.16.840.1.557432.3.579.2. 1942 Unknown [id number] 2.16.840.1.723137.3.579.2. 1942 Unknown [id number] 2.16.840.1.636437.3.579.2. 1942 Unknown [id number] 2.16.840.1.505552.3.579.2. 1942 Unknown [id number] 2.16.840.1.725461.3.579.2. 1942 Unknown [id number] 2.16.840.1.567309.3.579.2. 1942 Unknown [id number] 2.16.840.1.625670.3.579.2. 1942 Unknown [id number] 2.16.840.1.495949.3.579.2. 1942 Unknown [id number] 2.16.840.1.261034.3.579.2. 1942 Unknown [id number] 2.16.840.1.465634.3.579.2. 1942 Unknown [id number] 2.16.840.1.008667.3.579.2. 1942 Unknown [id number] 2.16.840.1.469205.3.579.2. 1942 Unknown [id number] 2.16.840.1.757181.3.579.2. 727 1942 Unknown [id number] 1940 Unknown [id number] 1940 Unknown [id number] 1940 Unknown [id number] Medicare [id number] Medicare [id number] Unknown [id number] Social History Date Type Detail Facility Start: 06-20-2024 End: 11-28-2024 Sex Assigned At [facility] Start: 12-01-2023 End: 07-22-2025 Tobacco smoking status TNIS Never smoked tobacco [facility] Comment on above: denies use. Start: 06-28-2022 Alcohol intake Current drinke r of alcohol (finding) [facility] Start: 06-28-2022 End: 11-28-2024 Alcohol intake [facility] Start: 1940 Sex Assigned At Not on file [facility] Tobacco smoking status Never [facility] [place] Comment on above: denies use. Start: 02-15-2024 End: 06-17-2025 Tobacco use and exposure Smokeless tobacco non-user [facility] Sexual Orientation [facility] Start: 03-27-2015 End: 08-22-2023 Sex Male (finding) [facility] Start: 06-02-2025 Alcoholic beverage intake Lifetime non-drinker (finding) [employer] Has the cashcloud, [employer], or [employer] threatened to shut off services in your home in past 12Mo [employer] (I/We) worried wheshaheen er (my/our) food would run out before (I/we) got money to buy more. Never true [employer] Start: 06-17-2025 Alcoholic beverage intake Ex-drinker (finding) [facility] How often to you hav e a drink containing alcohol? Never [email or web address] Start: 1940 Sex Assigned At Male F [facility] Start: 07-22-2025 SDOH Follow up SDOH Follow up [facility] Work Phone: Medical Equipment Procedure Code [...] Evaluation of progress towards goal: Home with [facility] Functional Status Date Assessment Result Facility 06-17-2025 Total score [AUDIT-C] 0 06/17/20 25 4:54 PM EDT Monico Cuellar, ERIN [facility] 10-30-2024 Functional Status No [facility] 08-28-2024 Functional Status N/A [facility] [place] 06-11-2024 Functional Status N/A [facility] 05-30-2024 Functional Status No [facility] 04-20-2024 Functional Status N/A [facility] 03-06-2024 Functional Status No [facility] Mental Status Date Assessment Result Facility [facility] Clinical [...] these instructions at home: Medicines ??? Take miji-dwb-ybgnzav and prescription medicines only as told by [...] away. Get medica (more content not included)... 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 Biking. ? Swimming. Medicines ??? Take ewam-bxr-rymffso and prescription medicines only as told by your doctor. ??? Avoid taking control pills. Talk to your doctor about the risks of taking control pills if: ? You are over 35 years old. ? You smoke. ? You get very bad headaches. ? You have had a blood clot. Where to find more information ??? [place] [employer]: www.strokeassociation.org Get help right away [...] what people say. ? (more content not included)...[facility]08-21-2025 Note Patient Education Nephrology Hyponatremia Hyponatremia [...] Follow these instructions at home: ??? Take bqjl-hwz-hunjvwk and prescription medicines only as told by [...] provider. Document Revised: 05/11/2022 Document Reviewed: 05/11/2022 [employer]ach[employer] Patient Education ? 2023 [employer] 06-23-2025 Nurse Note* Debra Huggins RN - 06/23/2025 3:01 PM EDT Patient discharged to the [facility] at this time. Report called and questions addressed. PIV and tele discontinued. All personal belongings packed and left with patient. Report given to transport as well. No other concerns at this time. Left on stretcher [facility]08-10-2025 Nurse Note* Debra Huggins RN - 06/23/2025 3:01 PM EDT Patient discharged to the [facility] at this time. Report called and questions [...] Notified ofQT from EKG done 06/17 at [place]. [facility] Plan of care note * Plan of Care - Debra Huggins RN - 06/23/2025 11:02 AM EDT Problem: Pain Goal: Patient goal is pain score less than 4, able to rest, and participant in treatment plan as appropriate Description: INTERVENTIONS: 1. Encourage patient or legal ambulatory services representative to report early pain and ask [...] per policy 9. Teach patient or legal ambulatory services representative interventions for comforting Outcome: Adequate for [...] at the bedside 7. Instruct patient/ patient ambulatory services representative about use of safety devices 8. Include patient/ patient ambulatory services representative in decisions related to safety Outcome: [...] hygiene technique. 7. Identify and instruct patient/patient ambulatory services representative in use of appropriate isolation precautionsfor identified infection/symptoms. 8. Provide and discuss with patient/patient ambulatory services representative on educational MDRO sheet. 9. Encourage and monitor nutritional status daily and consult manager net if indicated. 10. Implement neutropenic guidelines as needed. Outcome: Adequate for Discharge Problem: Knowledge Deficit Goal: Patient/patient ambulatory services representative demonstrates understanding of disease process, treatment [...] supplement as ordered 13. Collaborate with clinical manager net 14. Include patient/ patient's ambulatory services representative in decisions related to nutrition Outcome: [...] develop effective communication strategies 4. Include patient/patient ambulatory services representative in decisions related to communication Outcome: [...] Collaborate with ancillary departments 14. Include patient/patient ambulatory services representative in decisions related to anxiety Outcome: [...] providing care 6. Collaborate with pastoral/spiritual care, criminal justice social worker, mental health counselor as needed. 7. Instruct patient on diversional activities such as physical activity, distraction, and deep breathing exercises to assist with coping 8. Involve patient's ambulatory services representative in care Outcome: Adequate for Discharge [...] Score of =/> 25 or indicated by [facility] Assessment Goal: Patient should be free from fall Description: Interventions: 1. Ideal to environment 2. Hourly rounds addressing the [...] non-skid footwear 11. Teach patient and patient ambulatory services representative to maintain environment for safety and [...] (cane, walker) within reach 19. Request patient ambulatory services representative bring adaptive equipment/mobility aids from home or obtain and provide as needed 20. Consult pharmacy regarding effects of med's affecting mobility, cognition, and alternatives 21. Obtain physician order for PT if risk factors associated with mobility are present 22. Obtain physician order for OT as appropriate 23. Utilize diversional activities 24. Educate patient and patient ambulatory services representative how to maintain a safe environment during visitationtimes (notify nurse prior to leaving bedside) 25. Consider appropriateness of medical or non-biomedical repair technician 26. Set up voiding schedule as appropriate (every 2 hours) Outcome: [facility]quate for [facility]charge [email or web address] [id number] Miscellaneous Notes* Plan of Care - Debra Huggins RN - 06/23/2025 11:02 AM EDT Problem: Pain Goal: Patient goal is pain score less than 4, able to rest, and participant in treatment plan as appropriate Description: INTERVENTIONS: 1. Encourage patient or legal ambulatory services representative to report early pain and ask [...] per policy 9. Teach patient or legal ambulatory services representative interventions for comforting Outcome: Adequate for [...] at the bedside 7. Instruct patient/ patient ambulatory services representative about use of safety devices 8. Include patient/ patient ambulatory services representative in decisions related to safety Outcome: [...] hygiene technique. 7. Identify and instruct patient/patient ambulatory services representative in use of appropriate isolation precautionsfor identified infection/symptoms. 8. Provide and discuss with patient/patient ambulatory services representative on educational MDRO sheet. 9. Encourage and monitor nutritional status daily and consult manager net if indicated. 10. Implement neutropenic guidelines as needed. Outcome: Adequate for Discharge Problem: Knowledge Deficit Goal: Patient/patient ambulatory services representative demonstrates understanding of disease process, treatment [...] supplement as ordered 13. Collaborate with clinical manager net 14. Include patient/ patient's ambulatory services representative in decisions related to nutrition Outcome: [...] develop effective communication strategies 4. Include patient/patient ambulatory services representative in decisions related to communication Outcome: [...] Collaborate with ancillary departments 14. Include patient/patient ambulatory services representative in decisions related to anxiety Outcome: [...] providing care 6. Collaborate with pastoral/spiritual care, criminal justice social worker, mental health counselor as needed. 7. Instruct patient on diversional activities such as physical activity, distraction, and deep breathing exercises to assist with coping 8. Involve patient's ambulatory services representative in care Outcome: Adequate for Discharge [...] Score of =/> 25 or indicated by [facility] Assessment Goal: Patient should be free from fall Description: Interventions: 1. Ideal to environment 2. Hourly rounds addressing the [...] non-skid footwear 11. Teach patient and patient ambulatory services representative to maintain environment for safety and [...] (cane, walker) within reach 19. Request patient ambulatory services representative bring adaptive equipment/mobility aids from home or obtain and provide as needed 20. Consult pharmacy regarding effects of med's affecting mobility, cognition, and alternatives 21. Obtain physician order for PT if risk factors associated with mobility are present 22. Obtain physician order for OT as appropriate 23. Utilize diversional activities 24. Educate patient and patient ambulatory services representative how to maintain a safe environment during visitationtimes (notify nurse prior to leaving bedside) 25. Consider appropriateness of medical or non-biomedical repair technician 26. Set up voiding schedule as appropriate (every 2 hours) Outcome: Adequate for Discharge * Discharge Planning Note - Hellen Brady - 06/23/2025 10:54 AM EDT DISCHARGE PLANNING NOTE BLS via PTN scheduled for today 06/23/25 at 1 PM to [facility] Confirmed in [facility]. * Discharge Planning Note - CHARLES Lee - 06/23/2025 10:39 AM EDT DISCHARGE PLANNING NOTE Discharge written, CRF complete. Social work task [facility] to arrange BLS transport- wait confirmed time. [facility] notified of discharge and CRF sent. HENS [...] Description: INTERVENTIONS: 1. Encourage patient or legal ambulatory services representative to report early pain and ask [...] per policy 9. Teach patient or legal ambulatory services representative interventions for comforting 06/23/2025 0628 by [...] at the bedside 7. Instruct patient/ patient ambulatory services representative about use of safety devices 8. Include patient/ patient ambulatory services representative in decisions related to safety Outcome: [...] hygiene technique. 7. Identify and instruct patient/patient ambulatory services representative in use of appropriate isolation precautionsfor identified infection/symptoms. 8. Provide and discuss with patient/patient ambulatory services representative on educational MDRO sheet. 9. Encourage and monitor nutritional status daily and consult manager net if indicated. 10. Implement neutropenic guidelines as needed. Outcome: Progressing Note: Evaluation of progress towards goal: Standard precaution maintained Problem: Knowledge Deficit Goal: Patient/patient ambulatory services representative demonstrates understanding of disease process, treatment [...] supplement as ordered 13. Collaborate with clinical manager net 14. Include patient/ patient's ambulatory services representative in decisions related to nutrition Outcome: [...] develop effective communication strategies 4. Include patient/patient ambulatory services representative in decisions related to communication Outcome: [...] Collaborate with ancillary departments 14. Include patient/patient ambulatory services representative in decisions related to anxiety Outcome: [...] providing care 6. Collaborate with pastoral/spiritual care, criminal justice social worker, mental health counselor as needed. 7. Instruct patient on diversional activities such as physical activity, distraction, and deep breathing exercises to assist with coping 8. Involve patient's ambulatory services representative in care Outcome: Progressing Note: Evaluation [...] Score of =/> 25 or indicated by [facility] Assessment Goal: Patient should be free from fall Description: Interventions: 1. Ideal to environment 2. Hourly rounds addressing the [...] non-skid footwear 11. Teach patient and patient ambulatory services representative to maintain environment for safety and [...] (cane, walker) within reach 19. Request patient ambulatory services representative bring adaptive equipment/mobility aids from home or obtain and provide as needed 20. Consult pharmacy regarding effects of med's affecting mobility, cognition, and alternatives 21. Obtain physician order for PT if risk factors associated with mobility are present 22. Obtain physician order for OT as appropriate 23. Utilize diversional activities 24. Educate patient and patient ambulatory services representative how to maintain a safe environment during visitationtimes (notify nurse prior to leaving bedside) 25. Consider appropriateness of medical or non-biomedical repair technician 26. Set up voiding schedule as appropriate (every 2 hours) Outcome: Progressing Note: Evaluation of progress towards goal: Fall bundles maintained * Plan of Care - eDbra Huggins RN - 06/22/2025 2:18 PM EDT Problem: Pain Goal: Patient goal is pain score less than 4, able to rest, and participant in treatment plan as appropriate Description: INTERVENTIONS: 1. Encourage patient or legal ambulatory services representative to report early pain and ask [...] per policy 9. Teach patient or legal ambulatory services representative interventions for comforting Outcome: Progressing Note: [...] at the bedside 7. Instruct patient/ patient ambulatory services representative about use of safety devices 8. Include patient/ patient ambulatory services representative in decisions related to safety Outcome: [...] hygiene technique. 7. Identify and instruct patient/patient ambulatory services representative in use of appropriate isolation precautionsfor identified infection/symptoms. 8. Provide and discuss with patient/patient ambulatory services representative on educational MDRO sheet. 9. Encourage and monitor nutritional status daily and consult manager net if indicated. 10. Implement neutropenic guidelines as needed. Outcome: Progressing Note: Evaluation of progress towards goal: continue to monitor labs, vitals, tele, IV site Problem: Knowledge Deficit Goal: Patient/patient ambulatory services representative demonstrates understanding of disease process, treatment [...] supplement as ordered 13. Collaborate with clinical manager net 14. Include patient/ patient's ambulatory services representative in decisions related to nutrition Outcome: [...] develop effective communication strategies 4. Include patient/patient ambulatory services representative in decisions related to communication Outcome: Progressing Note: Evaluation of progress towards goal: [place], speak loudly and understands Problem: Potential for [...] Collaborate with ancillary departments 14. Include patient/patient ambulatory services representative in decisions related to anxiety Outcome: [...] providing care 6. Collaborate with pastoral/spiritual care, criminal justice social worker, mental health counselor as needed. 7. Instruct patient on diversional activities such as physical activity, distraction, and deep breathing exercises to assist with coping 8. Involve patient's ambulatory services representative in care Outcome: Progressing Note: Evaluation [...] Progressing Note: Evaluation of progress towards goal: [facility] [place] Problem: Moderate - High Risk Fall Score Description: Val[place]a Fall Score of =/> 25 or indicated by [facility] Assessment Goal: Patient should be free from fall Description: Interventions: 1. Ideal to environment 2. Hourly rounds addressing the [...] non-skid footwear 11. Teach patient and patient ambulatory services representative to maintain environment for safety and [...] (cane, walker) within reach 19. Request patient ambulatory services representative bring adaptive equipment/mobility aids from home or obtain and provide as needed 20. Consult pharmacy regarding effects of med's affecting mobility, cognition, and alternatives 21. Obtain physician order for PT if risk factors associated with mobility are present 22. Obtain physician order for OT as appropriate 23. Utilize diversional activities 24. Educate patient and patient ambulatory services representative how to maintain a safe environment during visitationtimes (notify nurse prior to leaving bedside) 25. Consider appropriateness of medical or non-biomedical repair technician 26. Set up voiding schedule as appropriate (every 2 hours) Outcome: Progressing Note: Evaluation of progress towards goal: no falls; syncopal episode per notes 06/21; up with assistonly; high fall risk - maintain precautions * Discharge Planning Note - Norma Ritter - 06/22/2025 12:42 PM EDT DISCHARGE PLANNING NOTE Prior Auth approved for admission to : [facility] (P# ; F# ) Approval # [id number] Valid for Dates: 06/22/2025 - 06/28/2025 * Discharge Planning Note - Norma Ritter - 06/22/2025 10:39 AM EDT DISCHARGE PLANNING NOTE [facility] Via: [employer] On behalf of : [facility] (P# ; F# ) Ref# [id number] * Discharge Planning Note - CHARLES Lee - 06/22/2025 10:15 AM EDT DISCHARGE PLANNING NOTE Case discussed in daily transition rounds and chart reviewed by CN. Discharge Plan remains: [facility] [place]. [facility] accepting referral. Social work contacted to inform of above and she was pleased with the news. is looking for patient's SSN. Social work task [facility] to start precert. CN will continue to follow and is available should any further needs arise. - CHARLES LEE 06/22/25 10:15 AM Insurance approved SNF stay. Patient is tentatively discharged tomorrow. Social work sent a messageto [facility] to inform of tentative discharge date. [...] Description: INTERVENTIONS: 1. Encourage patient or legal ambulatory services representative to report early pain and ask [...] per policy 9. Teach patient or legal ambulatory services representative interventions for comforting Outcome: Progressing Note: [...] at the bedside 7. Instruct patient/ patient ambulatory services representative about use of safety devices 8. Include patient/ patient ambulatory services representative in decisions related to safety Outcome: [...] hygiene technique. 7. Identify and instruct patient/patient ambulatory services representative in use of appropriate isolation precautionsfor identified infection/symptoms. 8. Provide and discuss with patient/patient ambulatory services representative on educational MDRO sheet. 9. Encourage and monitor nutritional status daily and consult manager net if indicated. 10. Implement neutropenic guidelines as needed. Outcome: Progressing Note: Evaluation of progress towards goal: Pt has no s/s of infection, standard precaution maintained Problem: Knowledge Deficit Goal: Patient/patient ambulatory services representative demonstrates understanding of disease process, treatment [...] supplement as ordered 13. Collaborate with clinical manager net 14. Include patient/ patient's ambulatory services representative in decisions related to nutrition Outcome: [...] develop effective communication strategies 4. Include patient/patient ambulatory services representative in decisions related to communication Outcome: [...] Collaborate with ancillary departments 14. Include patient/patient ambulatory services representative in decisions related to anxiety Outcome: [...] providing care 6. Collaborate with pastoral/spiritual care, criminal justice social worker, mental health counselor as needed. 7. Instruct patient on diversional activities such as physical activity, distraction, and deep breathing exercises to assist with coping 8. Involve patient's ambulatory services representative in care Outcome: Progressing Note: Evaluation [...] Score of =/> 25 or indicated by [facility] Assessment Goal: Patient should be free from fall Description: Interventions: 1. Ideal to environment 2. Hourly rounds addressing the [...] non-skid footwear 11. Teach patient and patient ambulatory services representative to maintain environment for safety and [...] (cane, walker) within reach 19. Request patient ambulatory services representative bring adaptive equipment/mobility aids from home or obtain and provide as needed 20. Consult pharmacy regarding effects of med's affecting mobility, cognition, and alternatives 21. Obtain physician order for PT if risk factors associated with mobility are present 22. Obtain physician order for OT as appropriate 23. Utilize diversional activities 24. Educate patient and patient ambulatory services representative how to maintain a safe environment during visitationtimes (notify nurse prior to leaving bedside) 25. Consider appropriateness of medical or non-biomedical repair technician 26. Set up voiding schedule as appropriate (every 2 hours) Outcome: Progressing Note: Evaluation of progress towards goal: Fall bundles maintained * Plan of Care - Lauren Gaona RN - 06/21/2025 6:18 PM EDT Problem: Knowledge Deficit Goal: Patient/patient ambulatory services representative demonstrates understanding of disease process, treatment [...] for adl's Problem: Knowledge Deficit Goal: Patient/patient ambulatory services representative demonstrates understanding of disease process, treatment [...] Description: INTERVENTIONS: 1. Encourage patient or legal ambulatory services representative to report early pain and ask [...] per policy 9. Teach patient or legal ambulatory services representative interventions for comforting Outcome: Progressing Note: [...] at the bedside 7. Instruct patient/ patient ambulatory services representative about use of safety devices 8. Include patient/ patient ambulatory services representative in decisions related to safety Outcome: [...] hygiene technique. 7. Identify and instruct patient/patient ambulatory services representative in use of appropriate isolation precautionsfor identified infection/symptoms. 8. Provide and discuss with patient/patient ambulatory services representative on educational MDRO sheet. 9. Encourage and monitor nutritional status daily and consult manager net if indicated. 10. Implement neutropenic guidelines as [...] supplement as ordered 13. Collaborate with clinical manager net 14. Include patient/ patient's ambulatory services representative in decisions related to nutrition Outcome: [...] develop effective communication strategies 4. Include patient/patient ambulatory services representative in decisions related to communication Outcome: [...] Collaborate with ancillary departments 14. Include patient/patient ambulatory services representative in decisions related to anxiety Outcome: [...] providing care 6. Collaborate with pastoral/spiritual care, criminal justice social worker, mental health counselor as needed. 7. Instruct patient on diversional activities such as physical activity, distraction, and deep breathing exercises to assist with coping 8. Involve patient's ambulatory services representative in care Outcome: Progressing Note: Evaluation [...] Score of =/> 25 or indicated by [facility] Rehab Assessment Goal: Patient should be free from fall Description: Interventions: 1. Ideal to environment 2. Hourly rounds addressing the [...] non-skid footwear 11. Teach patient and patient ambulatory services representative to maintain environment for safety and [...] (cane, walker) within reach 19. Request patient ambulatory services representative bring adaptive equipment/mobility aids from home or obtain and provide as needed 20. Consult pharmacy regarding effects of med's affecting mobility, cognition, and alternatives 21. Obtain physician order for PT if risk factors associated with mobility are present 22. Obtain physician order for OT as appropriate 23. Utilize diversional activities 24. Educate patient and patient ambulatory services representative how to maintain a safe environment during visitationtimes (notify nurse prior to leaving bedside) 25. Consider appropriateness of medical or non-biomedical repair technician 26. Set up voiding schedule as [...] Description: INTERVENTIONS: 1. Encourage patient or legal ambulatory services representative to report early pain and ask [...] per policy 9. Teach patient or legal ambulatory services representative interventions for comforting Outcome: Progressing Note: [...] at the bedside 7. Instruct patient/ patient ambulatory services representative about use of safety devices 8. Include patient/ patient ambulatory services representative in decisions related to safety Outcome: [...] hygiene technique. 7. Identify and instruct patient/patient ambulatory services representative in use of appropriate isolation precautionsfor identified infection/symptoms. 8. Provide and discuss with patient/patient ambulatory services representative on educational MDRO sheet. 9. Encourage and monitor nutritional status daily and consult manager net if indicated. 10. Implement neutropenic guidelines as [...] supplement as ordered 13. Collaborate with clinical manager net 14. Include patient/ patient's ambulatory services representative in decisions related to nutrition Outcome: [...] develop effective communication strategies 4. Include patient/patient ambulatory services representative in decisions related to communication Outcome: [...] Collaborate with ancillary departments 14. Include patient/patient ambulatory services representative in decisions related to anxiety Outcome: [...] providing care 6. Collaborate with pastoral/spiritual care, criminal justice social worker, mental health counselor as needed. 7. Instruct patient on diversional activities such as physical activity, distraction, and deep breathing exercises to assist with coping 8. Involve patient's ambulatory services representative in care Outcome: Progressing Note: Evaluation [...] be free from fall Description: Interventions: 1. Ideal to environment 2. Hourly rounds addressing the [...] non-skid footwear 11. Teach patient and patient ambulatory services representative to maintain environment for safety and [...] (cane, walker) within reach 19. Request patient ambulatory services representative bring adaptive equipment/mobility aids from home or obtain and provide as needed 20. Consult pharmacy regarding effects of med's affecting mobility, cognition, and alternatives 21. Obtain physician order for PT if risk factors associated with mobility are present 22. Obtain physician order for OT as appropriate 23. Utilize diversional activities 24. Educate patient and patient ambulatory services representative how to maintain a safe environment during visitationtimes (notify nurse prior to leaving bedside) 25. Consider appropriateness of medical or non-biomedical repair technician 26. Set up voiding schedule as appropriate (every 2 hours) Outcome: Progressing Note: Evaluation of progress towards goal: free of fall this shift Problem: Pain Goal: Patient goal is pain score less than 4, able to rest, and participant in treatment plan as appropriate Description: INTERVENTIONS: 1. Encourage patient or legal ambulatory services representative to report early pain and ask [...] per policy 9. Teach patient or legal ambulatory services representative interventions for comforting Outcome: Progressing Note: [...] at the bedside 7. Instruct patient/ patient ambulatory services representative about use of safety devices 8. Include patient/ patient ambulatory services representative in decisions related to safety Outcome: [...] at the bedside 7. Instruct patient/ patient ambulatory services representative about use of safety devices 8. Include patient/ patient ambulatory services representative in decisions related to safety Outcome: [...] hygiene technique. 7. Identify and instruct patient/patient ambulatory services representative in use of appropriate isolation precautionsfor identified infection/symptoms. 8. Provide and discuss with patient/patient ambulatory services representative on educational MDRO sheet. 9. Encourage and monitor nutritional status daily and consult manager net if indicated. 10. Implement neutropenic guidelines as [...] supplement as ordered 13. Collaborate with clinical manager net 14. Include patient/ patient's ambulatory services representative in decisions related to nutrition Outcome: [...] develop effective communication strategies 4. Include patient/patient ambulatory services representative in decisions related to communication Outcome: [...] Collaborate with ancillary departments 14. Include patient/patient ambulatory services representative in decisions related to anxiety Outcome: [...] Score of =/> 25 or indicated by [facility] Rehab Assessment Goal: Patient should be free from fall Description: Interventions: 1. Ideal to environment 2. Hourly rounds addressing the [...] non-skid footwear 11. Teach patient and patient ambulatory services representative to maintain environment for safety and [...] (cane, walker) within reach 19. Request patient ambulatory services representative bring adaptive equipment/mobility aids from home or obtain and provide as needed 20. Consult pharmacy regarding effects of med's affecting mobility, cognition, and alternatives 21. Obtain physician order for PT if risk factors associated with mobility are present 22. Obtain physician order for OT as appropriate 23. Utilize diversional activities 24. Educate patient and patient ambulatory services representative how to maintain a safe environment during visitationtimes (notify nurse prior to leaving bedside) 25. Consider appropriateness of medical or non-biomedical repair technician 26. Set up voiding schedule as [...] providing care 6. Collaborate with pastoral/spiritual care, criminal justice social worker, mental health counselor as needed. 7. Instruct patient on diversional activities such as physical activity, distraction, and deep breathing exercises to assist with coping 8. Involve patient's ambulatory services representative in care Outcome: Progressing Note: Evaluation of progress towards goal: no issues * Discharge Planning Note - Martina Mckeon - 06/21/2025 3:45 PM EDT DISCHARGE PLANNING NOTE Referral sent to [facility] (P# ; F# ) * Discharge Planning Note - Rohini Mcintyre RN - 06/21/2025 2:29 PM EDT 06/21/25 [id number] Services Requested Patient expects to be discharged to: SNF Does the patient wish to have family/friend/caregiver involved in their discharge planning? Yes Does the patient plan to return home to a community setting? No, patient to discharge to facility-based provider. See Discharge Disposition Discharge Disposition SNF Facility/Service Name NA SNF Name [facility] Does the patient need discharge transportation arranged? Yes Transportation Arranged Ambulance Mobility issues discussed with transportation provider Yes Patient choice offered Yes List Provided Yes [facility] List Provided [facility] Financial Disclosure Provided for In-Network Referral Yes DISCHARGE PLANNING NOTE CN spoke w pts , SNF choice is [facility]. She did n ot have a 2nd choice. CN asked her to review list for dditional choices. CN tasked for referral to [facility]. Barriers: SNFaccept. Will need precert. CTbrain.Rohini Mcintyre RN * Discharge Planning Note - Rohini Mcintyre RN - 06/21/2025 12:44 PM EDT DISCHARGE PLANNING NOTE PT/OT rec SNF. CN called and left Voicemail for pts . Pt not appropriate for [facility]. Need SNF choices. CN also sent SNF list Via careport to pts cell phone to select choices. Await response. Rohini Mcintyre RN * PT/OT/PRODUCT STRATEGY DIRECTOR - LU Enriquez - 06/21/2025 9:58 AM [...] on coumadin and diabetic. Continue to recommend long-term facility. Patient with episode of decreased responsiveness with listing to the left while on commode for 1-2 minutes. Once alert patient was nauseated. RNLauren called to room. Patient assisted from toilet mireya and MD in room. See below for past medical and past surgical history. Past Medical History: Diagnosis Date Atrial fibrillation ([facility]) BPH (benign prostatic hyperplasia) Broken nose CVA (cerebral vascular accident) ([facility]) 06/17/2025 Diabetes ([facility]) Epistaxis Hypertension Hyponatremia secondary to SIADH Hypothyroid [...] Equipment: waker, chair alarm, gait belt, telemetry. Telemetry/Line Production Cook: Yes Oxygen Used: room air Other: (S) [...] Patient will perform toilet transfers with Modified [place] Dates: Start: 06/21/25 Expected End: 07/19/25 Description: [...] (cerebral vascular accident) ([facility]) * PT/OT/PRODUCT STRATEGY DIRECTOR - Ayaan Campos, PT - 06/21/2025 9:56 [...] Past Medical History: Diagnosis Date Atrial fibrillation ([facility]) BPH (benign prostatic hyperplasia) Broken nose CVA (cerebral vascular accident) ([facility]) 06/17/2025 Diabetes ([facility]) Epistaxis Hypertension Hyponatremia secondary to SIADH Hypothyroid [...] gait belt, wheeled walker, IV, chair/bed alarm Telemetry/Line Production Cook: Yes Oxygen Used: room air Other: (S) [...] (cerebral vascular accident) ([facility]) * Plan of Care - Nicole Sparks RN - 06/20/2025 11:40 PM EDT Problem: Pain Goal: Patient goal is pain score less than 4, able to rest, and participant in treatment plan as appropriate Description: INTERVENTIONS: 1. Encourage patient or legal ambulatory services representative to report early pain and ask [...] per policy 9. Teach patient or legal ambulatory services representative interventions for comforting Outcome: Progressing Note: [...] at the bedside 7. Instruct patient/ patient ambulatory services representative about use of safety devices 8. Include patient/ patient ambulatory services representative in decisions related to safety Outcome: [...] hygiene technique. 7. Identify and instruct patient/patient ambulatory services representative in use of appropriate isolation precautionsfor identified infection/symptoms. 8. Provide and discuss with patient/patient ambulatory services representative on educational MDRO sheet. 9. Encourage and monitor nutritional status daily and consult manager net if indicated. 10. Implement neutropenic guidelines as needed. Outcome: Progressing Note: Evaluation of progress towards goal: No s/s of infection at this time Problem: Knowledge Deficit Goal: Patient/patient ambulatory services representative demonstrates understanding of disease process, treatment [...] Score of =/> 25 or indicated by [facility] Re[facility] Assessment Goal: Patient should be free from fall Description: Interventions: 1. Ideal to environment 2. Hourly rounds addressing the [...] non-skid footwear 11. Teach patient and patient ambulatory services representative to maintain environment for safety and [...] (cane, walker) within reach 19. Request patient ambulatory services representative bring adaptive equipment/mobility aids from home or obtain and provide as needed 20. Consult pharmacy regarding effects of med's affecting mobility, cognition, and alternatives 21. Obtain physician order for PT if risk factors associated with mobility are present 22. Obtain physician order for OT as appropriate 23. Utilize diversional activities 24. Educate patient and patient ambulatory services representative how to maintain a safe environment during visitationtimes (notify nurse prior to leaving bedside) 25. Consider appropriateness of medical or non-biomedical repair technician 26. Set up voiding schedule as appropriate (every 2 hours) Outcome: Progressing Note: Evaluation of progress towards goal: pt free from fall at this time Problem: Knowledge Deficit Goal: Patient/patient ambulatory services representative demonstrates understanding of disease process, treatment [...] will need updated PT/OT notes sent to [facility]. When pt/ot worked w him yesterday [...] received a voice mail from Franc at [facility] phone [phone], she says she has left a few messages for an update for patient. This is the only vm I have received. Sending an [employer] chat to Rohini / Vivienne / Mesha with information * Plan of Care - Nicole Sparks RN - 06/19/2025 11:13 PM EDT Problem: Pain Goal: Patient goal is pain score less than 4, able to rest, and participant in treatment plan as appropriate Description: INTERVENTIONS: 1. Encourage patient or legal ambulatory services representative to report early pain and ask [...] per policy 9. Teach patient or legal ambulatory services representative interventions for comforting Outcome: Progressing Note: [...] at the bedside 7. Instruct patient/ patient ambulatory services representative about use of safety devices 8. Include patient/ patient ambulatory services representative in decisions related to safety Outcome: [...] hygiene technique. 7. Identify and instruct patient/patient ambulatory services representative in use of appropriate isolation precautionsfor identified infection/symptoms. 8. Provide and discuss with patient/patient ambulatory services representative on educational MDRO sheet. 9. Encourage and monitor nutritional status daily and consult manager net if indicated. 10. Implement neutropenic guidelines as [...] supplement as ordered 13. Collaborate with clinical manager net 14. Include patient/ patient's ambulatory services representative in decisions related to nutrition Outcome: [...] be free from fall Description: Interventions: 1. Ideal to environment 2. Hourly rounds addressing the [...] non-skid footwear 11. Teach patient and patient ambulatory services representative to maintain environment for safety and [...] (cane, walker) within reach 19. Request patient ambulatory services representative bring adaptive equipment/mobility aids from home or obtain and provide as needed 20. Consult pharmacy regarding effects of med's affecting mobility, cognition, and alternatives 21. Obtain physician order for PT if risk factors associated with mobility are present 22. Obtain physician order for OT as appropriate 23. Utilize diversional activities 24. Educate patient and patient ambulatory services representative how to maintain a safe environment during visitationtimes (notify nurse prior to leaving bedside) 25. Consider appropriateness of medical or non-biomedical repair technician 26. Set up voiding schedule as appropriate (every 2 hours) Outcome: Progressing Note: Evaluation of progress towards goal: pt free from fall at this time safety measures in place * PT/OT/PRODUCT STRATEGY DIRECTOR - Ayaan Campos, PT - 06/19/2025 2:49 [...] Raw Score: 6 [facility] G Code Modifier: CN SwePASS score = 4/36 Pt is an 85 yo male admit 06/17 with L sided weakness and aphasia while at Coumadin clinic. NIHSS = 13. Pt with recent hospitalization 06/02 s/p fall while adjusting lawn chair with nasal bone fracture and persistent epistaxis. CT brain - no acute CTA - R P1/P2 occlusion. TNK given and transfer to [facility]. On arrival, NIHSS = 0 [...] Past Medical History: Diagnosis Date Atrial fibrillation ([facility]) BPH (benign prostatic hyperplasia) Broken nose CVA (cerebral vascular accident) ([facility]) 06/17/2025 Diabetes ([facility]) Epistaxis Hypertension Hyponatremia secondary to SIADH Hypothyroid [...] tolerated Equipment: repositioning sling, IV, bed alarm Telemetry/Line Production Cook: Yes Oxygen Used: room air Other: high [...] with rails Stairs to Enter: 2 from privacy director Rails: Right Stairs in Home: 0 Bathroom Shower/Tub: Walk-in shower Bathroom Toilet: Standard Home Equipment: Rolling walker Other : Home info from EMR review of recent therapy eval at [facility] - pt not able to answer questionsthis date and no family present. 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 Prior Function Lives With: Spouse (Leelee) [...] (cerebral vascular accident) ([facility]) * PT/OT/PRODUCT STRATEGY DIRECTOR - Veronica Rivera OTR/Krishan - 06/19/2025 2:48 [...] status, Communication needs, Endurance level Modified [place] Level of Disability: Severe disability 0= No [...] Raw Score: 12 [facility] G Code Modifier: CL Modifed chip index; [...] Past Medical History: Diagnosis Date Atrial fibrillation ([facility]) BPH (benign prostatic hyperplasia) Broken nose CVA (cerebral vascular accident) ([facility]) 06/17/2025 Diabetes ([facility]) Epistaxis Hypertension Hyponatremia secondary to SIADH Hypothyroid [...] per early mobility guidelines. Equipment: telemetry, IV Telemetry/Line Production Cook: Yes Oxygen Used: room air Other: fall [...] (cerebral vascular accident) ([facility]) * Discharge Planning Note - Dawson [...] home health services Facility/Service Name [facility] Case discussed in daily transition rounds and chart reviewed by CN. Barriers to discharge include PT/OT, PMR to see, Discharge Plan remains: Home with HHC vs IPR. [facility] will accept. [facility]- will need PT/OT notes as soon [...] Description: INTERVENTIONS: 1. Encourage patient or legal ambulatory services representative to report early pain and ask [...] per policy 9. Teach patient or legal ambulatory services representative interventions for comforting Outcome: Progressing Note: [...] at the bedside 7. Instruct patient/ patient ambulatory services representative about use of safety devices 8. Include patient/ patient ambulatory services representative in decisions related to safety Outcome: [...] hygiene technique. 7. Identify and instruct patient/patient ambulatory services representative in use of appropriate isolation precautionsfor identified infection/symptoms. 8. Provide and discuss with patient/patient ambulatory services representative on educational MDRO sheet. 9. Encourage and monitor nutritional status daily and consult manager net if indicated. 10. Implement neutropenic guidelines as needed. Outcome: Progressing Note: Evaluation of progress towards goal: Pt should remain free from infection during this shift. Standard precautions used during care. Problem: Knowledge Deficit Goal: Patient/patient ambulatory services representative demonstrates understanding of disease process, treatment [...] Score of =/> 25 or indicated by [facility] Rehab Assessment Goal: Patient should be free from fall Description: Interventions: 1. Ideal to environment 2. Hourly rounds addressing the [...] non-skid footwear 11. Teach patient and patient ambulatory services representative to maintain environment for safety and [...] (cane, walker) within reach 19. Request patient ambulatory services representative bring adaptive equipment/mobility aids from home or obtain and provide as needed 20. Consult pharmacy regarding effects of med's affecting mobility, cognition, and alternatives 21. Obtain physician order for PT if risk factors associated with mobility are present 22. Obtain physician order for OT as appropriate 23. Utilize diversional activities 24. Educate patient and patient ambulatory services representative how to maintain a safe environment during visitationtimes (notify nurse prior to leaving bedside) 25. Consider appropriateness of medical or non-biomedical repair technician 26. Set up voiding schedule as [...] EDT DISCHARGE PLANNING NOTE Referral sent to [facility] in [place] (P# ; F# ) * Discharge Planning Note - Brianna Verduzco - 06/18/2025 1:04 PM EDT DISCHARGE PLANNING NOTE Referral sent to. [facility] in [place], [place] (P# ; F# ) * Discharge [...] Acute rehab, Home with home health services Electrician Constructor Supervisor met with patient, introduced self, and explained role. Patient educated on safe discharge plan. Pt admitted 06/17/2025 with CVA (cerebral vascular accident) ([facility]) [I63.9] per chart review. Consults: Neurology Discharge Barriers per Daily Transition Rounds and chart review: PT/OT, s/p TNK- bedrest, MRi, echo. Past Medical History: Diagnosis Date Atrial fibrillation ([facility]) BPH (benign prostatic hyperplasia) Broken nose CVA (cerebral vascular accident) ([facility]) 06/17/2025 Diabetes ([facility]) Epistaxis Hypertension Hyponatremia secondary to SIADH Hypothyroid [...] patient to appointments, shopping and assisting with medical videographer. Caregiver's personal limitations include Patient's feels she [...] vs acute rehab. PCP: TANYA Lozano Pharmacy: [facility] PCP and pharmacy confirmed with patient. CN offered to assist with follow up appointment arrangements; . TANYA Lozano added to Follow Up Providers for Summary of Care communication. Per patient self-report: Drug use: denies Smoking: denies ETOH Use: rarely Current discharge plan is: Home with [facility] vs acute rehab pending PT/OT eval. CN spoke with patient'swife she has used [facility] in past. Tasked to send referrals to [facility] and to [facility]. Services Requested: Services Requested Patient expects [...] Evaluation of progress towards goal: Home with [facility] Autogenerated Goal Will continue to follow as plan of care develops. CN discussed benefits and importance of medication compliance and follow ups. Please feel free to reach out for any discharge planning questions. - Dawson Yost RN 06/18/25 12:24 PM * PT/OT/PRODUCT STRATEGY DIRECTOR - Zaire Sierra CCC-PRODUCT STRATEGY DIRECTOR - 06/18/2025 10:35 AM EDT Speech Therapy Evaluation Bedside Swallow/Feeding Evaluation Speech & Language Cognitive Evaluation Discharge Recommendations for Safe Patient Transition PRODUCT STRATEGY DIRECTOR Post Discharge Therapy Recommendations: Continue ST services [...] decline resulting from CVA. Prognosis Services: Skilled PRODUCT STRATEGY DIRECTOR services to address above deficits Prognosis/Potential: Good Considerations: Age, Cognition Discharge Recommendations for Safe Patient Transition PRODUCT STRATEGY DIRECTOR Post Discharge Therapy Recommendations: Continue ST services [...] should be further evaluated. Prognosis Services: Skilled PRODUCT STRATEGY DIRECTOR services to address the above deficits Prognosis/Potential: [...] Dysphagia Problem: Swallowing Dates: Start: 06/18/25 Disciplines: PRODUCT STRATEGY DIRECTOR Goal: STG: Patient will complete safety strategies independently during PO intake 90% of the time Dates: Start: 06/18/25 Expected End: 07/22/25 Disciplines: PRODUCT STRATEGY DIRECTOR Template: ST - Rehab Speech Problem: Auditory Comprehension Dates: Start: 06/18/25 Disciplines: PRODUCT STRATEGY DIRECTOR Goal: LTG: Patient will comprehend communication related to basic medical and social needs and utilize compensatory strategies to maintain safety in a functional living environment Dates: Start: 06/18/25 Expected End: 07/22/25 Disciplines: PRODUCT STRATEGY DIRECTOR Goal: STG: Patient will answer simple yes/no questions with 90% accuracy with minimal cueing. Dates: Start: 06/18/25 Expected End: 07/22/25 Disciplines: PRODUCT STRATEGY DIRECTOR Goal: STG: Patient will answer complex yes/no questions with 90% accuracy with minimal cueing Dates: Start: 06/18/25 Expected End: 07/22/25 Disciplines: PRODUCT STRATEGY DIRECTOR Problem: Verbal Expression Dates: Start: 06/18/25 Disciplines: PRODUCT STRATEGY DIRECTOR Goal: LTG: Patient will utilize compensatory strategies to communicate wants and needs effectively to different conversational partners, maintain safety and participate socially in a functional living environment Dates: Start: 06/18/25 Expected End: 07/22/25 Disciplines: PRODUCT STRATEGY DIRECTOR Goal: STG: Patient will complete simple to complex divergent and convergent naming tasks with 90% accuracy with minimal cueing to improve thought organization Dates: Start: 06/18/25 Expected End: 07/22/25 Disciplines: PRODUCT STRATEGY DIRECTOR Goal: STG: Patient will use word retrieval strategies during structured interactions to improve functional communication during activities of daily living with 90% accuracy with minimal cueing Dates: Start: 06/18/25 Expected End: 07/22/25 Disciplines: PRODUCT STRATEGY DIRECTOR Speech Therapy Care Plan (Resolved) There are no resolved problems. Principal Problem: CVA (cerebral vascular accident) ([facility]) * PT/OT/PRODUCT STRATEGY DIRECTOR - ALVARO Chino/Krishan - 06/18/2025 7:37 AM EDT Occupational Therapy OT Type of Visit: Medical deferral Reason For Medical Deferral: Activity limitations Activity Limitations: Strict bedrest (Per TNK protocol. Will continue to follow.) * PT/OT/PRODUCT STRATEGY DIRECTOR - Ayaan Campos PT - 06/18/2025 7:28 [...] Description: INTERVENTIONS: 1. Encourage patient or legal ambulatory services representative to report early pain and ask [...] per policy 9. Teach patient or legal ambulatory services representative interventions for comforting Outcome: Progressing Note: [...] at the bedside 7. Instruct patient/ patient ambulatory services representative about use of safety devices 8. Include patient/ patient ambulatory services representative in decisions related to safety Outcome: [...] hygiene technique. 7. Identify and instruct patient/patient ambulatory services representative in use of appropriate isolation precautionsfor identified infection/symptoms. 8. Provide and discuss with patient/patient ambulatory services representative on educational MDRO sheet. 9. Encourage and monitor nutritional status daily and consult manager net if indicated. 10. Implement neutropenic guidelines as [...] be free from fall Description: Interventions: 1. Ideal to environment 2. Hourly rounds addressing the [...] non-skid footwear 11. Teach patient and patient ambulatory services representative to maintain environment for safety and [...] (cane, walker) within reach 19. Request patient ambulatory services representative bring adaptive equipment/mobility aids from home or obtain and provide as needed 20. Consult pharmacy regarding effects of med's affecting mobility, cognition, and alternatives 21. Obtain physician order for PT if risk factors associated with mobility are present 22. Obtain physician order for OT as appropriate 23. Utilize diversional activities 24. Educate patient and patient ambulatory services representative how to maintain a safe environment during visitationtimes (notify nurse prior to leaving bedside) 25. Consider appropriateness of medical or non-biomedical repair technician 26. Set up voiding schedule as [...] Description: INTERVENTIONS: 1. Encourage patient or legal ambulatory services representative to report early pain and ask [...] per policy 9. Teach patient or legal ambulatory services representative interventions for comforting Outcome: Progressing Note: [...] at the bedside 7. Instruct patient/ patient ambulatory services representative about use of safety devices 8. Include patient/ patient ambulatory services representative in decisions related to safety Outcome: [...] hygiene technique. 7. Identify and instruct patient/patient ambulatory services representative in use of appropriate isolation precautionsfor identified infection/symptoms. 8. Provide and discuss with patient/patient ambulatory services representative on educational MDRO sheet. 9. Encourage and monitor nutritional status daily and consult manager net if indicated. 10. Implement neutropenic guidelines as needed. Outcome: Progressing Note: Evaluation of progress towards goal: Patient remains free from signs of infection at this time. Will continue to monitor. Problem: Knowledge Deficit Goal: Patient/patient ambulatory services representative demonstrates understanding of disease process, treatment [...] Score of =/> 25 or indicated by [facility] Rehab Assessment Goal: Patient should be free from fall Description: Interventions: 1. Ideal to environment 2. Hourly rounds addressing the [...] non-skid footwear 11. Teach patient and patient ambulatory services representative to maintain environment for safety and [...] (cane, walker) within reach 19. Request patient ambulatory services representative bring adaptive equipment/mobility aids from home or obtain and provide as needed 20. Consult pharmacy regarding effects of med's affecting mobility, cognition, and alternatives 21. Obtain physician order for PT if risk factors associated with mobility are present 22. Obtain physician order for OT as appropriate 23. Utilize diversional activities 24. Educate patient and patient ambulatory services representative how to maintain a safe environment during visitationtimes (notify nurse prior to leaving bedside) 25. Consider appropriateness of medical or non-biomedical repair technician 26. Set up voiding schedule as appropriate (every 2 hours) Outcome: Progressing Note: Evaluation of progress towards goal: Fall risk assessment preformed and safety measures in place. Education given to family/patient. Will continue to monitor. Additional Comments: documented in this encounterOhio[facility]08-10-2025 Progress note* Discharge Planning Note - Hellen Brady - 06/23/2025 10:54 AM EDT DISCHARGE PLANNING NOTE BLS via PTN scheduled for today 06/23/25 at 1 PM to [facility] Confirmed in [facility]. [facility]08-10-[facility] Progress note* Discharge Planning Note - CHARLES Lee - 06/23/2025 10:39 AM EDT DISCHARGE PLANNING NOTE Discharge written, CRF complete. Social work task [facility] to arrange BLS transport- wait confirmed time. [facility] notified of discharge and CRF sent. HENS submitted. is aware and agreeable to transition plan. RN updated. - CHARLES LEE 06/23/25 10:42 AM [facility]08-10-[facility] Hospital course Narrative* Erika Crisostomo MD - 06/23/2025 10:30 AM EDT Images from the original note were not included. [facility]- Hospital Medicine Discharge Summary Patient's Name: Dariel Zabala Date of : 1940 Age: 85 yrs Gender: male PCP: Patient Care Team: Yanique Mcneill APRN-AVELINA as PCP - General (Family Medicine) DATE OF ADMISSION: 06/17/2025 DATE OF DISCHARGE: 06/23/2025 DISCHARGE DIAGNOSES: Active Hospital Problems Diagnosis Date Noted CVA (cerebral vascular accident) ([facility]) 06/17/2025 Resolved Problems No resolved problems [...] in his anticoagulation Patient was discharged to long-term facility at a stable condition Discharge Medications: [...] total) by mouth in the morning. coenzyme Z58-rabljtd E 100-5 mg-unit capsule Take 100 mg [...] Your Medications These medications were sent to [facility]/pharmacy #[id number] - [place], [place] - [address] [address] apixaban 5 mg tablet midodrine 5 mg [...] Extra Tubes. Procedure Abnormality Status --------- ------ Quandora Top[[id number]] Final result Please view results for these [...] results found. Discharge Instructions Disposition: Discharge to long-term facility Condition: Stable Activity: activity as tolerated Diet: Adult diet Regular Texture; Fluid Restriction 1800 mL Adult diet Yanique Españaann, EXTRACT MIXER-SCALES INSPECTOR [address] [facility] [address] Follow up Information Provided to the Patient: Patient given copy of Discharge Instructions, patient hospital stay was discussed. No special instructions. I have spent 35 minutes coordinating and preparing this discharge. I have discussed the patient's hospitalization course, treatment plan and follow up instructions with patient and . I have answered all the patient's questions. Electronically signed by: ERIKA CRISOSTOMO MD [facility], Department of Internal Medicine [...] have escaped final proofreading documented in this encounterOhioHealth Grady [facility]08-10-2025 History of Present illness Narrative* Toy [...] PLATELETS X10E9/L 234 212 189 204 200 @RESUFAST(IRON,TIBC,FERRITIN,IRONSAT,FOLATE,[id number]))@ Results from last 7 days Lab Units [...] parameters to maintain systolic blood pressure more [id number] and less than 120. 4. Atrial fibrillation: [...] For questions please call: Answering Service at [phone] Or Office at [phone] This note was created with the assistance of a speech-recognition program. Although the intention is to generate a document that actually reflects the content of the visit, no guarantees can be provided that every mistake has been identified and corrected by editing. * Erika Crisostomo MD - 06/22/2025 12:57 PM EDT Images from the original note were not included. [facility] Progress Note 06/22/2025 Patient [...] Tubes. Procedure Abnormality Status --------- ------ Lavender Top[[id number]] Final result Please view results for these [...] X10E9/L 212 189 204 200 214 251 @RESUFAST(IRON,TIBC,FERRITIN,IRONSAT,FOLATE,[id number]))@ Results from last 7 days Lab Units [...] For questions please call: Answering Service at [phone] Or Office at [phone] This note was created with the assistance [...] clinical progress daily. Griselda Ramirez PharmD Ext [phone] * Erika Crisostomo MD - 06/21/2025 3:47 [...] Extra Tubes. Procedure Abnormality Status --------- ------ [facility][[id number]] Final result Please view results for these [...] QUESTIONS FEEL FREE TO CALL: 1. OFFICE [phone] 2. ANSWERING SERVICE:[phone] YOU CAN CONTACT ME THROUGH [employer] DURING THE DAYTIME HOURS, IF NO RESPONSE AFTER 5 MINUTES CALL THE ANSWERING SERVICE This note was created with the assistance of a speech-recognition program. Although the intention is to generate a document that actually reflects the content of the visit, no guarantees can be provided that every mistake has been identified and corrected by editing. * Vinh Andre [facility] - 06/21/2025 9:56 AM EDT Pharmacokinetic Consult [...] reportedly received TNK prior to arrival to [facility], heparin infusion bridge Drug-disease Interactions: - [...] patient's clinical progress daily. Vinh Andre, PharmD, [facility] [id number] * Myrtle Jacome MD - 06/21/2025 7:52 [...] (cerebral vascular accident) ([facility]) Encephalopathy Recommendations/Plan: Continue PT, OT Max assist x2 bed mobility Family education Coumadin for AFib Consider long-term facility Will follow up with you for rehab needs Myrtle Jacome MD * Noreen Myers [facility] - 06/20/2025 10:20 AM EDT Pharmacokinetic Consult [...] clinical progress daily. Noreen Myers RPH Ext [phone] * Pat Araiza RN - 06/19/2025 8:52 PM EDT Images from the original note were not included. FOLLOW-UP: Post-Intensive Care Rounding Note Patient: Dariel Zabala : 1940 Age: 85 y.o. Length of Stay: 2 days Admission Diagnosis: CVA (cerebral vascular accident) ([facility]) [I63.9] Reviewing patient due to his recent transfer out from Intensive Care. Recorded vital signs are stable and the patient is not noted to be in any apparent distress. Telemetry and monitoring noted. Staff may call with any issues or concerns regarding his clinical presentation or stability. Thank you, Pat Araiza RN Rapid Response: [facility] * Rahat Mallory RPH - 06/19/2025 [...] (cerebral vascular accident) ([facility]) [I63.9] Reviewing patient due to his recent transfer out from Intensive Care. Recorded vital signs are stable and the patient is not noted to be in any apparent distress. Telemetry and monitoring noted. Staff may call with any issues or concerns regarding his clinical presentation or stability. Thank you, JOSSELYN LARA RN Rapid Response: [facility] * Pat Araiza RN - 06/18/2025 8:32 PM EDT Images from the original note were not included. FOLLOW-UP: Post-Intensive Care Rounding Note Patient: Dariel Zabala : 1940 Age: 85 y.o. Length of Stay: 1 days Admission Diagnosis: CVA (cerebral vascular accident) ([facility]) [I63.9] Reviewing patient due to his recent transfer out from Intensive Care. Recorded vital signs are stable and the patient is not noted to be in any apparent distress. Telemetry and monitoring noted. Staff may call with any issues or concerns regarding his clinical presentation or stability. Thank you, Pat Araiza RN Rapid Response: [facility] documented in this encounterOhioHealth [facility]ady [facility]08-10-2025 Plan of care note * Plan of Care - Yonathan Joy RN - 06/23/2025 6:29 AM EDT Problem: Pain Goal: Patient goal is pain score less than 4, able to rest, and participant in treatment plan as appropriate Description: INTERVENTIONS: 1. Encourage patient or legal ambulatory services representative to report early pain and ask [...] per policy 9. Teach patient or legal ambulatory services representative interventions for comforting 06/23/2025627 by ERIN [...] at the bedside 7. Instruct patient/ patient ambulatory services representative about use of safety devices 8. Include patient/ patient ambulatory services representative in decisions related to safety Outcome: [...] hygiene technique. 7. Identify and instruct patient/patient ambulatory services representative in use of appropriate isolation precautionsfor identified infection/symptoms. 8. Provide and discuss with patient/patient ambulatory services representative on educational MDRO sheet. 9. Encourage and monitor nutritional status daily and consult manager net if indicated. 10. Implement neutropenic guidelines as needed. Outcome: Progressing Note: Evaluation of progress towards goal: Standard precaution maintained Problem: Knowledge Deficit Goal: Patient/patient ambulatory services representative demonstrates understanding of disease process, treatment [...] supplement as ordered 13. Collaborate with clinical manager net 14. Include patient/ patient's ambulatory services representative in decisions related to nutrition Outcome: [...] develop effective communication strategies 4. Include patient/patient ambulatory services representative in decisions related to communication Outcome: [...] Collaborate with ancillary departments 14. Include patient/patient ambulatory services representative in decisions related to anxiety Outcome: [...] providing care 6. Collaborate with pastoral/spiritual care, criminal justice social worker, mental health counselor as needed. 7. Instruct patient on diversional activities such as physical activity, distraction, and deep breathing exercises to assist with coping 8. Involve patient's ambulatory services representative in care Outcome: Progressing Note: Evaluation [...] Score of =/> 25 or indicated by [facility] Rehab Assessment Goal: Patient should be free from fall Description: Interventions: 1. Ideal to environment 2. Hourly rounds addressing the [...] non-skid footwear 11. Teach patient and patient ambulatory services representative to maintain environment for safety and [...] (cane, walker) within reach 19. Request patient ambulatory services representative bring adaptive equipment/mobility aids from home or obtain and provide as needed 20. Consult pharmacy regarding effects of med's affecting mobility, cognition, and alternatives 21. Obtain physician order for PT if risk factors associated with mobility are present 22. Obtain physician order for OT as appropriate 23. Utilize diversional activities 24. Educate patient and patient ambulatory services representative how to maintain a safe environment during visitationtimes (notify nurse prior to leaving bedside) 25. Consider appropriateness of medical or non-biomedical repair technician 26. Set up voiding schedule as appropriate (every 2 hours) Outcome: Progressing Note: Evaluation of progress towards goal: Fall bundles maintained [facility]08-09-[facility] Consult note* Kaye Goel MD - 06/22/2025 4:04 PM EDTAssociated Order(s): IP CONSULT TO CARDIOLOGY Images from the original note were not included. [facility] [address] [place] [address] HISTORY & PHYSICAL / CONSULT NOTE Dariel Zabala PCP: Yanique Mcneill APRN-AVELINA Date of Admission: 06/17/2025 Date of Consultation: 06/22/2025 4:05 PM Consult for atrial fibrillation, bradycardia, intermittent pauses SUBJECTIVE History of Present Illness: Dariel Zabala is a 85 y.o. male w/ PMH RUFINO s/p R CEA, DMII, HLD, hypothyroidism, HTN, SIADH, recent TIA 05/2025, and permanent atrial fibrillation w/ [id number] 7 on warfarin who presented 06/17/25 with [...] Past Medical History: Diagnosis Date Atrial fibrillation ([facility]) BPH (benign prostatic hyperplasia) Broken nose CVA (cerebral vascular accident) ([facility]) 06/17/2025 Diabetes ([facility]) Epistaxis Hypertension Hyponatremia secondary to SIADH Hypothyroid [...] intravenous PRN Rocio Davis MD heparin infusion 73052 units/500 mL in 0.45% NaCl (50 units/mL [...] Yes Not In System Ref Prov coenzyme X21-eqczhee E 100-5 mg-unit capsule Take 100 mg [...] Extremities: No edema ASSESSMENT Permanent atrial fibrillation, [id number], on heparin gtt/warfarin L CVA s/p [...] This note was completed using a voice shipping assistant system. Every effort was made to ensure accuracy. However, inadvertent computerized shipping assistant errors may be present. [employer] Work Phone: 1(657) 959-572908-09-2025 Consult note* Kaye Goel MD - 06/22/2025 4:04 PM EDTAssociated Order(s): IP CONSULT TO CARDIOLOGY Images from the original note were not included. [facility] [address] [place] [address] HISTORY & PHYSICAL / CONSULT NOTE Dariel Bal Vj PCP: TANYA Lozano Date of Admission: 06/17/2025 Date of Consultation: 06/22/2025 4:05 PM Consult for atrial fibrillation, bradycardia, intermittent pauses SUBJECTIVE History of Present Illness: Dariel Zabala is a 85 y.o. male w/ PMH RUFINO s/p R CEA, DMII, HLD, hypothyroidism, HTN, SIADH, recent TIA 05/2025, and permanent atrial fibrillation w/ [id number] 7 on warfarin who presented 06/17/25 with RLE weakness and aphasia. He received TNK at [facility]SH for R P1/P2 occlusion and subsequently transferred to [facility]. Head imaging w/o acute infarct, but [...] Past Medical History: Diagnosis Date Atrial fibrillation ([facility]) BPH (benign prostatic hyperplasia) Broken nose CVA (cerebral vascular accident) ([facility]) 06/17/2025 Diabetes ([facility]) Epistaxis Hypertension Hyponatremia secondary to SIADH Hypothyroid [...] intravenous PRN Rocio Davis MD heparin infusion 51840 units/500 mL in 0.45% NaCl (50 units/mL [...] Yes Not In System Ref Prov coenzyme X24-bmidhva E 100-5 mg-unit capsule Take 100 mg [...] Extremities: No edema ASSESSMENT Permanent atrial fibrillation, [id number], on heparin gtt/warfarin L CVA s/p [...] This note was completed using a voice shipping assistant system. Every effort was made to ensure accuracy. However, inadvertent computerized shipping assistant errors may be present. * Richa Beyer MD - 06/20/2025 1:56 PM EDTAssociated Order(s): IP CONSULT TO PHYSICAL MEDICINE REHAB Images from the original note were not included. PHYSICAL MEDICINE AND REHABILITATION CONSULT Date of Admission: 06/17/2025 1:38 PM Referring Physician: Mirian Carranza MD PCP: Yanique Mcneill APRN-AVELINA Chief Compliant: Principal Problem: CVA (cerebral vascular accident) ([facility]) Reason for Consultation: Rehabilitation Candidacy and Rehab Weld Technician Physicians/Services Consulting Providers Provider Service Specialty Richa [...] given to the patient and transferred to [facility]. CT perfusion study showed deficit [...] Past Medical History: Diagnosis Date Atrial fibrillation ([facility]) BPH (benign prostatic hyperplasia) Broken nose CVA (cerebral vascular accident) ([facility]) 06/17/2025 Diabetes ([facility]) Epistaxis Hypertension Hyponatremia secondary to SIADH Hypothyroid [...] standard [facility] EEG monitoring reportusing scalp and [...] or primary neurological disorders. Yaquelin Esparza MD Booster Assembler Neurology/Neurophysiology [facility] Recent Results (from the past [...] Tubes. Procedure Abnormality Status --------- ------ PST TOP[[id number]] Final result Please view results for these [...] (cerebral vascular accident) ([facility]) MRI is negative for ischemia Debility [...] by mouth in the morning. Taking coenzyme F54-ywlmfpo E 100-5 mg-unit capsule Take 100 mg [...] anticoagulation MAISHA VERGARA MD NEPHROLOGY [facility] ANY QUESTIONS FEEL FREE TO CALL: 1. OFFICE [phone] 2. ANSWERING SERVICE:[phone] YOU CAN CONTACT ME THROUGH [employer] DURING THE DAYTIME HOURS, IF NO RESPONSE AFTER 5 MINUTES CALL THE ANSWERING SERVICE This note was created with the assistance of a speech-recognition program. Although the intention is to generate a document that actually reflects the content of the visit, no guarantees can be provided that every mistake has been identified and corrected by editing. documented in this encounter[facility] Plan of care note * Plan of Care - Debra Huggins RN - 06/22/2025 2:18 PM EDT Problem: Pain Goal: Patient goal is pain score less than 4, able to rest, and participant in treatment plan as appropriate Description: INTERVENTIONS: 1. Encourage patient or legal ambulatory services representative to report early pain and ask [...] per policy 9. Teach patient or legal ambulatory services representative interventions for comforting Outcome: Progressing Note: [...] at the bedside 7. Instruct patient/ patient ambulatory services representative about use of safety devices 8. Include patient/ patient ambulatory services representative in decisions related to safety Outcome: [...] hygiene technique. 7. Identify and instruct patient/patient ambulatory services representative in use of appropriate isolation precautionsfor identified infection/symptoms. 8. Provide and discuss with patient/patient ambulatory services representative on educational MDRO sheet. 9. Encourage and monitor nutritional status daily and consult manager net if indicated. 10. Implement neutropenic guidelines as needed. Outcome: Progressing Note: Evaluation of progress towards goal: continue to monitor labs, vitals, tele, IV site Problem: Knowledge Deficit Goal: Patient/patient ambulatory services representative demonstrates understanding of disease process, treatment [...] supplement as ordered 13. Collaborate with clinical manager net 14. Include patient/ patient's ambulatory services representative in decisions related to nutrition Outcome: [...] develop effective communication strategies 4. Include patient/patient ambulatory services representative in decisions related to communication Outcome: Progressing Note: Evaluation of progress towards goal: [place], speak loudly and understands Problem: Potential for [...] Collaborate with ancillary departments 14. Include patient/patient ambulatory services representative in decisions related to anxiety Outcome: [...] providing care 6. Collaborate with pastoral/spiritual care, criminal justice social worker, mental health counselor as needed. 7. Instruct patient on diversional activities such as physical activity, distraction, and deep breathing exercises to assist with coping 8. Involve patient's ambulatory services representative in care Outcome: Progressing Note: Evaluation [...] Progressing Note: Evaluation of progress towards goal: [facility] [place] Problem: Moderate - High Risk Fall Score Description: [place] Fall Score of =/> 25 or indicated by [facility] Re[facility] Assessment Goal: Patient should be free from fall Description: Interventions: 1. Ideal to environment 2. Hourly rounds addressing the [...] non-skid footwear 11. Teach patient and patient ambulatory services representative to maintain environment for safety and [...] (cane, walker) within reach 19. Request patient ambulatory services representative bring adaptive equipment/mobility aids from home or obtain and provide as needed 20. Consult pharmacy regarding effects of med's affecting mobility, cognition, and alternatives 21. Obtain physician order for PT if risk factors associated with mobility are present 22. Obtain physician order for OT as appropriate 23. Utilize diversional activities 24. Educate patient and patient ambulatory services representative how to maintain a safe environment during visitationtimes (notify nurse prior to leaving bedside) 25. Consider appropriateness of medical or non-biomedical repair technician 26. Set up voiding schedule as appropriate (every 2 hours) Outcome: Progressing Note: Evaluation of progress towards goal: no falls; syncopal episode per notes 06/21; up with assistonly; high fall risk - maintain precautions [facility]08[facility] Progress note* Discharge Planning Note - Norma Ritter - 06/22/2025 12:42 PM EDT DISCHARGE PLANNING NOTE Prior Auth approved for admission to : [facility] (P# ; F# ) Approval # [id number] Valid for Dates: 06/22/2025 - 06/28/2025 [facility]08-09-[facility] Progress note* Discharge Planning Note - Norma Ritter - 06/22/2025 10:39 AM EDT DISCHARGE PLANNING NOTE Prior auth submitted to: [employer] Via: [employer] On behalf of : [facility] (P# ; F# ) Ref# [id number] [facility]08-09-[facility] Progress note* Discharge Planning Note - CHARLES Lee - 06/22/2025 10:15 AM EDT DISCHARGE PLANNING NOTE Case discussed in daily transition rounds and chart reviewed by CN. Discharge Plan remains: [facility]. [facility] accepting referral. Social work contacted to inform of above and she was pleased with the news. is looking for patient's SSN. Social work task [facility] to start precert. CN will continue to follow and is available should any further needs arise. - CHARLES LEE 06/22/25 10:15 AM Insurance approved SNF stay. Patient is tentatively discharged tomorrow. Social work sent a messageto [facility] to inform of tentative discharge date. Social work contacted to inform of above and she is agreeable to transition plan. HENS started. - CHARLES LEE 06/22/25 2:54 PM [facility]08-09-[facility] Plan of care note* Plan of Care - Yonathan Joy RN - 06/22/2025 3:45 AM EDT Problem: Pain Goal: Patient goal is pain score less than 4, able to rest, and participant in treatment plan as appropriate Description: INTERVENTIONS: 1. Encourage patient or legal ambulatory services representative to report early pain and ask [...] per policy 9. Teach patient or legal ambulatory services representative interventions for comforting Outcome: Progressing Note: [...] at the bedside 7. Instruct patient/ patient ambulatory services representative about use of safety devices 8. Include patient/ patient ambulatory services representative in decisions related to safety Outcome: [...] hygiene technique. 7. Identify and instruct patient/patient ambulatory services representative in use of appropriate isolation precautionsfor identified infection/symptoms. 8. Provide and discuss with patient/patient ambulatory services representative on educational MDRO sheet. 9. Encourage and monitor nutritional status daily and consult manager net if indicated. 10. Implement neutropenic guidelines as needed. Outcome: Progressing Note: Evaluation of progress towards goal: Pt has no s/s of infection, standard precaution maintained Problem: Knowledge Deficit Goal: Patient/patient ambulatory services representative demonstrates understanding of disease process, treatment [...] supplement as ordered 13. Collaborate with clinical manager net 14. Include patient/ patient's ambulatory services representative in decisions related to nutrition Outcome: [...] develop effective communication strategies 4. Include patient/patient ambulatory services representative in decisions related to communication Outcome: [...] Collaborate with ancillary departments 14. Include patient/patient ambulatory services representative in decisions related to anxiety Outcome: [...] providing care 6. Collaborate with pastoral/spiritual care, criminal justice social worker, mental health counselor as needed. 7. Instruct patient on diversional activities such as physical activity, distraction, and deep breathing exercises to assist with coping 8. Involve patient's ambulatory services representative in care Outcome: Progressing Note: Evaluation [...] Score of =/> 25 or indicated by [facility] Re[facility] Assessment Goal: Patient should be free from fall Description: Interventions: 1. Ideal to environment 2. Hourly rounds addressing the [...] non-skid footwear 11. Teach patient and patient ambulatory services representative to maintain environment for safety and [...] (cane, walker) within reach 19. Request patient ambulatory services representative bring adaptive equipment/mobility aids from home or obtain and provide as needed 20. Consult pharmacy regarding effects of med's affecting mobility, cognition, and alternatives 21. Obtain physician order for PT if risk factors associated with mobility are present 22. Obtain physician order for OT as appropriate 23. Utilize diversional activities 24. Educate patient and patient ambulatory services representative how to maintain a safe environment during visitationtimes (notify nurse prior to leaving bedside) 25. Consider appropriateness of medical or non-biomedical repair technician 26. Set up voiding schedule as appropriate (every 2 hours) Outcome: Progressing Note: Evaluation of progress towards goal: Fall bundles maintained [facility]08-08[facility] Plan of care note* Plan of Care - Lauren Gaona RN - 06/21/2025 6:18 PM EDT Problem: Knowledge Deficit Goal: Patient/patient ambulatory services representative demonstrates understanding of disease process, treatment [...] for adl's Problem: Knowledge Deficit Goal: Patient/patient ambulatory services representative demonstrates understanding of disease process, treatment [...] Description: INTERVENTIONS: 1. Encourage patient or legal ambulatory services representative to report early pain and ask [...] per policy 9. Teach patient or legal ambulatory services representative interventions for comforting Outcome: Progressing Note: [...] at the bedside 7. Instruct patient/ patient ambulatory services representative about use of safety devices 8. Include patient/ patient ambulatory services representative in decisions related to safety Outcome: [...] hygiene technique. 7. Identify and instruct patient/patient ambulatory services representative in use of appropriate isolation precautionsfor identified infection/symptoms. 8. Provide and discuss with patient/patient ambulatory services representative on educational MDRO sheet. 9. Encourage and monitor nutritional status daily and consult manager net if indicated. 10. Implement neutropenic guidelines as [...] supplement as ordered 13. Collaborate with clinical manager net 14. Include patient/ patient's ambulatory services representative in decisions related to nutrition Outcome: [...] develop effective communication strategies 4. Include patient/patient ambulatory services representative in decisions related to communication Outcome: [...] Collaborate with ancillary departments 14. Include patient/patient ambulatory services representative in decisions related to anxiety Outcome: [...] providing care 6. Collaborate with pastoral/spiritual care, criminal justice social worker, mental health counselor as needed. 7. Instruct patient on diversional activities such as physical activity, distraction, and deep breathing exercises to assist with coping 8. Involve patient's ambulatory services representative in care Outcome: Progressing Note: Evaluation [...] Moderate - High Risk Fall Score Description: [place] Fall Score of =/> 25 or indicated by [facility] Re[facility] Assessment Goal: Patient should be free from fall Description: Interventions: 1. Ideal to environment 2. Hourly rounds addressing the [...] non-skid footwear 11. Teach patient and patient ambulatory services representative to maintain environment for safety and [...] (cane, walker) within reach 19. Request patient ambulatory services representative bring adaptive equipment/mobility aids from home or obtain and provide as needed 20. Consult pharmacy regarding effects of med's affecting mobility, cognition, and alternatives 21. Obtain physician order for PT if risk factors associated with mobility are present 22. Obtain physician order for OT as appropriate 23. Utilize diversional activities 24. Educate patient and patient ambulatory services representative how to maintain a safe environment during visitationtimes (notify nurse prior to leaving bedside) 25. Consider appropriateness of medical or non-biomedical repair technician 26. Set up voiding schedule as [...] Description: INTERVENTIONS: 1. Encourage patient or legal ambulatory services representative to report early pain and ask [...] per policy 9. Teach patient or legal ambulatory services representative interventions for comforting Outcome: Progressing Note: [...] at the bedside 7. Instruct patient/ patient ambulatory services representative about use of safety devices 8. Include patient/ patient ambulatory services representative in decisions related to safety Outcome: [...] hygiene technique. 7. Identify and instruct patient/patient ambulatory services representative in use of appropriate isolation precautionsfor identified infection/symptoms. 8. Provide and discuss with patient/patient ambulatory services representative on educational MDRO sheet. 9. Encourage and monitor nutritional status daily and consult manager net if indicated. 10. Implement neutropenic guidelines as [...] supplement as ordered 13. Collaborate with clinical manager net 14. Include patient/ patient's ambulatory services representative in decisions related to nutrition Outcome: [...] develop effective communication strategies 4. Include patient/patient ambulatory services representative in decisions related to communication Outcome: [...] Collaborate with ancillary departments 14. Include patient/patient ambulatory services representative in decisions related to anxiety Outcome: [...] providing care 6. Collaborate with pastoral/spiritual care, criminal justice social worker, mental health counselor as needed. 7. Instruct patient on diversional activities such as physical activity, distraction, and deep breathing exercises to assist with coping 8. Involve patient's ambulatory services representative in care Outcome: Progressing Note: Evaluation [...] Score of =/> 25 or indicated by [facility] Re[facility] Assessment Goal: Patient should be free from fall Description: Interventions: 1. Ideal to environment 2. Hourly rounds addressing the [...] non-skid footwear 11. Teach patient and patient ambulatory services representative to maintain environment for safety and [...] (cane, walker) within reach 19. Request patient ambulatory services representative bring adaptive equipment/mobility aids from home or obtain and provide as needed 20. Consult pharmacy regarding effects of med's affecting mobility, cognition, and alternatives 21. Obtain physician order for PT if risk factors associated with mobility are present 22. Obtain physician order for OT as appropriate 23. Utilize diversional activities 24. Educate patient and patient ambulatory services representative how to maintain a safe environment during visitationtimes (notify nurse prior to leaving bedside) 25. Consider appropriateness of medical or non-biomedical repair technician 26. Set up voiding schedule as appropriate (every 2 hours) Outcome: Progressing Note: Evaluation of progress towards goal: free of fall this shift Problem: Pain Goal: Patient goal is pain score less than 4, able to rest, and participant in treatment plan as appropriate Description: INTERVENTIONS: 1. Encourage patient or legal ambulatory services representative to report early pain and ask [...] per policy 9. Teach patient or legal ambulatory services representative interventions for comforting Outcome: Progressing Note: [...] at the bedside 7. Instruct patient/ patient ambulatory services representative about use of safety devices 8. Include patient/ patient ambulatory services representative in decisions related to safety Outcome: [...] at the bedside 7. Instruct patient/ patient ambulatory services representative about use of safety devices 8. Include patient/ patient ambulatory services representative in decisions related to safety Outcome: [...] hygiene technique. 7. Identify and instruct patient/patient ambulatory services representative in use of appropriate isolation precautionsfor identified infection/symptoms. 8. Provide and discuss with patient/patient ambulatory services representative on educational MDRO sheet. 9. Encourage and monitor nutritional status daily and consult manager net if indicated. 10. Implement neutropenic guidelines as [...] supplement as ordered 13. Collaborate with clinical manager net 14. Include patient/ patient's ambulatory services representative in decisions related to nutrition Outcome: [...] develop effective communication strategies 4. Include patient/patient ambulatory services representative in decisions related to communication Outcome: [...] as caffeine and (more content not included)... [facility]08-08-[facility] Progress note* Discharge Planning Note - Martina Mckeon - 06/21/2025 3:45 PM EDT DISCHARGE PLANNING NOTE Referral sent to [facility] (P# ; F# ) [facility]08-08-[facility] Progress note* Discharge Planning Note - [...] Facility/Service Name NA SNF Name [facility] Does the patient need discharge transportation arranged? Yes Transportation Arranged Ambulance Mobility issues discussed with transportation provider Yes Patient choice offered Yes List Provided Yes [facility] List Provided [facility] Financial Disclosure Provided for In-Network Referral Yes DISCHARGE PLANNING NOTE CN spoke w pts , SNF choice is [facility]. She did n ot have a 2nd choice. CN asked her to review list for dditional choices. CN tasked for referral to [facility]. Barriers: SNFaccept. Will need precert. CTbrain.Rohini Mcintyre RN [facility]08-08-2025 Nurse Note* Lauren Gaona RN - 06/21/2025 1:[address] Crisostomo, restart the heparin drip at this time, CTB negative. Restart at prior rate. Recheck antixa in 6 hours. [facility]08-08-2025 Progress note* Discharge Planning Note - Rohini Mcintyre RN - 06/21/2025 12:44 PM EDT DISCHARGE PLANNING NOTE PT/OT rec SNF. CN called and left Voicemail for pts . Pt not appropriate for [facility] IPR. Need SNF choices. CN also sent SNF list Via careport to pts cell phone to select choices. Await response. Rohini Mcintyre RN [facility] [employer] [phone] Progress note* PT/OT/PRODUCT STRATEGY DIRECTOR - LU Enriquez - 06/21/2025 9:58 AM EDT Occupational Therapy Re-Evaluation Discharge Recommendations for Safe Patient Transition Discharge Recommendations: Post acute - moderate Post Acute Moderate Rehab Needs: Recommend moderate intensity rehab, Tolerate 1- 2 hrs of therapy 3-5 days/wk, Subacute or chronic functional impairment Current Impairments Informing Therapy Recommendation: Ambulation status/safety, Cognition, Fall risk, ADL status, Endurance level, Communication needs Modified [place] Level of Disability: Moderately severe disability 0= [...] Raw Score: 14 [facility] G Code Modifier: CK Modified chip index: 04/02 Occupational Profile Patient seen for OT eval on 06-19-2025. Patient now seen for OT re-eval to update goals due to improved level of alertness and ability to participate in therapy. Patient admitted with left side weakness and aphasia. 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 History of A-fib on coumadin and diabetic. Continue to recommend long-term facility. Patient with episode of decreased responsiveness with listing to the left while on commode for 1-2 minutes. Once alert patient was nauseated. RNLauren called to room. Patient assisted from stephanie gomes and MD in room. See below for past medical and past surgical history. Past Medical History: Diagnosis Date Atrial fibrillation ([facility]) BPH (benign prostatic hyperplasia) Broken nose CVA (cerebral vascular accident) ([facility]) 06/17/2025 Diabetes ([facility]) Epistaxis Hypertension Hyponatremia secondary to SIADH Hypothyroid [...] Equipment: waker, chair alarm, gait belt, telemetry. Telemetry/Line Production Cook: Yes Oxygen Used: room air Other: (S) [...] Patient will perform toilet transfers with Modified [place] Dates: Start: 06/21/25 Expected End: 07/19/25 Description: [...] (cerebral vascular accident) ([facility]) [facility]08-08-[facility] Progress note* PT/OT/PRODUCT STRATEGY DIRECTOR - Ayaan Campos, PT - 06/21/2025 9:56 [...] 6 Clicks: Basic Mobility Raw Score: 15 [facility] Code Modifier: CK SwePASS score = 23/36 [...] Past Medical History: Diagnosis Date Atrial fibrillation ([facility]) BPH (benign prostatic hyperplasia) Broken nose CVA (cerebral vascular accident) ([facility]) 06/17/2025 Diabetes ([facility]) Epistaxis Hypertension Hyponatremia secondary to SIADH Hypothyroid [...] gait belt, wheeled walker, IV, chair/bed alarm Telemetry/Line Production Cook: Yes Oxygen Used: room air Other: (S) [...] (cerebral vascular accident) ([facility]) [facility]08-08-2025 Nurse Note* Lauren Gaona RN - 06/21/2025 9:27 AM EDT In chair, alert and responding. BP 98/65. Dr Crisostomo returns page and updated on events. [facility]08-08-2025 Nurse Note* Lauren Gaona RN - 06/21/2025 9:22 AM EDT Working with physical and occupational therapy. Ambulated to bathroom, had been alert and conversing, suddenly became unresponsive, staring and leaning to left. Resolved after 2-3 minutes, then more alert and was able to state name. Assisted to chair. Dr Kranthi gay. [facility]08-07-2025 Plan of care note* Plan of Care - Nicole Sparks RN - 06/20/2025 11:40 PM EDT Problem: Pain Goal: Patient goal is pain score less than 4, able to rest, and participant in treatment plan as appropriate Description: INTERVENTIONS: 1. Encourage patient or legal ambulatory services representative to report early pain and ask [...] per policy 9. Teach patient or legal ambulatory services representative interventions for comforting Outcome: Progressing Note: [...] at the bedside 7. Instruct patient/ patient ambulatory services representative about use of safety devices 8. Include patient/ patient ambulatory services representative in decisions related to safety Outcome: [...] hygiene technique. 7. Identify and instruct patient/patient ambulatory services representative in use of appropriate isolation precautionsfor identified infection/symptoms. 8. Provide and discuss with patient/patient ambulatory services representative on educational MDRO sheet. 9. Encourage and monitor nutritional status daily and consult manager net if indicated. 10. Implement neutropenic guidelines as needed. Outcome: Progressing Note: Evaluation of progress towards goal: No s/s of infection at this time Problem: Knowledge Deficit Goal: Patient/patient ambulatory services representative demonstrates understanding of disease process, treatment [...] Score of =/> 25 or indicated by [facility] Rehab Assessment Goal: Patient should be free from fall Description: Interventions: 1. Ideal to environment 2. Hourly rounds addressing the [...] non-skid footwear 11. Teach patient and patient ambulatory services representative to maintain environment for safety and [...] (cane, walker) within reach 19. Request patient ambulatory services representative bring adaptive equipment/mobility aids from home or obtain and provide as needed 20. Consult pharmacy regarding effects of med's affecting mobility, cognition, and alternatives 21. Obtain physician order for PT if risk factors associated with mobility are present 22. Obtain physician order for OT as appropriate 23. Utilize diversional activities 24. Educate patient and patient ambulatory services representative how to maintain a safe environment during visitationtimes (notify nurse prior to leaving bedside) 25. Consider appropriateness of medical or non-biomedical repair technician 26. Set up voiding schedule as appropriate (every 2 hours) Outcome: Progressing Note: Evaluation of progress towards goal: pt free from fall at this time Problem: Knowledge Deficit Goal: Patient/patient ambulatory services representative demonstrates understanding of disease process, treatment [...] alert and oriented to person and age [employer] [id number] Progress note* Situational Awareness - Gary Coronado MD - 06/20/2025 5:36 PM EDT [facility] Transfer Accept Note I have received a request for transfer of primary service for this patient from the neurology team care of neurology attending, clinical handoff received from Neurology resident. [facility] will assume careas primary team of this patient 7:00 a.m. 06/21/2025. [employer] Work Phone: [phone]) 291-235308-07-2025 Plan of care note* Plan of Care [...] also shows no change in renal function. [employer] [id number] Consult note* Richa Beyer MD - 06/20/2025 1:56 PM EDTAssociated Order(s): IP CONSULT TO PHYSICAL MEDICINE REHAB Images from the original note were not included. PHYSICAL MEDICINE AND REHABILITATION CONSULT Date of Admission: 06/17/2025 1:38 PM Referring Physician: Mirian Carranza MD PCP: TANYA Lozano Chief Compliant: Principal Problem: CVA (cerebral vascular accident) ([facility]) Reason for Consultation: Rehabilitation Candidacy and Rehab Weld Technician Physicians/Services Consulting Providers Provider Service Specialty MD [...] given to the patient and transferred to [facility]. CT perfusion study showed deficit [...] positivefor - gait disturbance and muscular weakness [facility] Past Medical History: Diagnosis Date Atrial fibrillation ([facility]) BPH (benign prostatic hyperplasia) Broken nose CVA (cerebral vascular accident) ([facility]) 06/17/2025 Diabetes (CMS-HCC) Epistaxis Hypertension Hyponatremia secondary [...] standard [facility] EEG monitoring reportusing scalp and [...] or primary neurological disorders. Yaquelin Esparza MD Booster Assembler Neurology/Neurophysiology [facility] Recent Results (from the past [...] Tubes. Procedure Abnormality Status --------- ------ PST TOP[[id number]] Final result Please view results for these [...] (cerebral vascular accident) ([facility]) MRI is negative for ischemia Debility [...] you for the referral. Richa Beyer MD [employer] Work Phone: [phone]) 948-168308-07-2025 Progress note* Discharge Planning Note - Rohini Mcintyre RN - 06/20/2025 12:33 PM EDT DISCHARGE PLANNING NOTE Pt will need updated PT/OT notes sent to [facility]. When pt/ot worked w him yesterday they rec SNF, but he was much less alert. Pt doing better today. Therapy will work w him tomorrow morning 06/21to see if IPR appropriate. Barriers: IPR accept, pt/ot to see, precert. Rohini Mcintyre RN [facility]08-07-2025 Consult note* Maisha Vergara MD - [...] by mouth in the morning. Taking coenzyme D44-[id number] E 100-5 mg-unit capsule Take 100 mg [...] anticoagulation MAISHA VERGARA MD [facility] ANY QUESTIONS FEEL FREE TO CALL: 1. OFFICE [phone] 2. ANSWERING SERVICE:[phone] YOU CAN CONTACT ME THROUGH [employer] SECURE CHAT DURING THE DAYTIME HOURS, IF NO RESPONSE AFTER 5 MINUTES CALL THE ANSWERING SERVICE This note was created with the assistance of a speech-recognition program. Although the intention is to generate a document that actually reflects the content of the visit, no guarantees can be provided that every mistake has been identified and corrected by editing. [employer]08-07-2025 Progress note* Discharge Planning Note - Brianna Verduzco - 06/20/2025 10:36 AM EDT DISCHARGE PLANNING NOTE I received a voice mail from Franc at [facility] phone [phone], she says she has left a few messages for an update for patient. This is the only vm I have received. Sending an [employer] chat to Rohini / Vivienne / Mesha with information [employer]08-06-2025 Plan of care note* Plan of Care - Nicole Sparks RN - 06/19/2025 11:13 PM EDT Problem: Pain Goal: Patient goal is pain score less than 4, able to rest, and participant in treatment plan as appropriate Description: INTERVENTIONS: 1. Encourage patient or legal ambulatory services representative to report early pain and ask [...] per policy 9. Teach patient or legal ambulatory services representative interventions for comforting Outcome: Progressing Note: [...] at the bedside 7. Instruct patient/ patient ambulatory services representative about use of safety devices 8. Include patient/ patient ambulatory services representative in decisions related to safety Outcome: [...] hygiene technique. 7. Identify and instruct patient/patient ambulatory services representative in use of appropriate isolation precautionsfor identified infection/symptoms. 8. Provide and discuss with patient/patient ambulatory services representative on educational MDRO sheet. 9. Encourage and monitor nutritional status daily and consult manager net if indicated. 10. Implement neutropenic guidelines as [...] supplement as ordered 13. Collaborate with clinical manager net 14. Include patient/ patient's ambulatory services representative in decisions related to nutrition Outcome: [...] Score of =/> 25 or indicated by [facility] Assessment Goal: Patient should be free from fall Description: Interventions: 1. Ideal to environment 2. Hourly rounds addressing the [...] non-skid footwear 11. Teach patient and patient ambulatory services representative to maintain environment for safety and [...] (cane, walker) within reach 19. Request patient ambulatory services representative bring adaptive equipment/mobility aids from home or obtain and provide as needed 20. Consult pharmacy regarding effects of med's affecting mobility, cognition, and alternatives 21. Obtain physician order for PT if risk factors associated with mobility are present 22. Obtain physician order for OT as appropriate 23. Utilize diversional activities 24. Educate patient and patient ambulatory services representative how to maintain a safe environment during visitationtimes (notify nurse prior to leaving bedside) 25. Consider appropriateness of medical or non-biomedical repair technician 26. Set up voiding schedule as appropriate (every 2 hours) Outcome: Progressing Note: Evaluation of progress towards goal: pt free from fall at this time safety measures in place [employer] [id number] Progress note* PT/OT/PRODUCT STRATEGY DIRECTOR - Ayaan Campos, PT - 06/19/2025 2:49 [...] P1/P2 occlusion. TNK given and transfer to [facility]. On arrival, NIHSS = 0 [...] Past Medical History: Diagnosis Date Atrial fibrillation ([facility]) BPH (benign prostatic hyperplasia) Broken nose CVA (cerebral vascular accident) ([facility]) 06/17/2025 Diabetes ([facility]) Epistaxis Hypertension Hyponatremia secondary to SIADH Hypothyroid Lumbar spondylosis TIA (transient ischemic attack) Past Surgical History: Procedure Laterality Date NECK SURGERY plate in neck per Modified [place] Level of Disability: Severe disability 0= No [...] tolerated Equipment: repositioning sling, IV, bed alarm Telemetry/Line Production Cook: Yes Oxygen Used: room air Other: high [...] with rails Stairs to Enter: 2 from privacy director Rails: Right Stairs in Home: 0 Bathroom Shower/Tub: Walk-in shower Bathroom Toilet: Standard Home Equipment: Rolling walker Other : Home info from EMR review of recent therapy eval at [facility] - pt not able to answer questionsthis date and no family present. 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 Prior Function Lives With: Spouse (Leelee) [...] (cerebral vascular accident) ([facility]) [facility]08-06-2025 Progress note* PT/OT/PRODUCT STRATEGY DIRECTOR - Veronica Rivera OTR/Krishan - 06/19/2025 2:48 [...] status, Communication needs, Endurance level Modified [place] Level of Disability: Severe disability 0= No [...] Raw Score: 12 [facility] G Code Modifier: CL Modifed chip index; [...] Past Medical History: Diagnosis Date Atrial fibrillation ([facility]) BPH (benign prostatic hyperplasia) Broken nose CVA (cerebral vascular accident) ([facility]) 06/17/2025 Diabetes ([facility]) Epistaxis Hypertension Hyponatremia secondary to SIADH Hypothyroid [...] per early mobility guidelines. Equipment: telemetry, IV Telemetry/Line Production Cook: Yes Oxygen Used: room air Other: fall [...] (cerebral vascular accident) ([facility]) [employer] [id number] Nurse Note* Deepali Mathew RN - 06/19/2025 10:55 AM EDT RN concerned as patient is extremely drowsy not following commands or speaking, RN called neuro resident Dr. Davis who states she thinks patient is just tired and will re assess later. [facility] [id number] Progress note* Discharge Planning Note - Dawson [...] home health services Facility/Service Name [facility] Case discussed in daily transition rounds and chart reviewed by CN. Barriers to discharge include PT/OT, PMR to see, Discharge Plan remains: Home with HHC vs IPR. [facility] will accept. [facility]- will need PT/OT notes as soon as they are in. CN will continue to follow and is available should any further needs arise. - Dawson Yost RN 06/19/25 8:40 AM [facility]08-05-2025 Plan of care note* Plan of Care - Leigha Eden RN - 06/18/2025 10:49 PM EDT Problem: Pain Goal: Patient goal is pain score less than 4, able to rest, and participant in treatment plan as appropriate Description: INTERVENTIONS: 1. Encourage patient or legal ambulatory services representative to report early pain and ask [...] per policy 9. Teach patient or legal ambulatory services representative interventions for comforting Outcome: Progressing Note: [...] at the bedside 7. Instruct patient/ patient ambulatory services representative about use of safety devices 8. Include patient/ patient ambulatory services representative in decisions related to safety Outcome: [...] hygiene technique. 7. Identify and instruct patient/patient ambulatory services representative in use of appropriate isolation precautionsfor identified infection/symptoms. 8. Provide and discuss with patient/patient ambulatory services representative on educational MDRO sheet. 9. Encourage and monitor nutritional status daily and consult manager net if indicated. 10. Implement neutropenic guidelines as needed. Outcome: Progressing Note: Evaluation of progress towards goal: Pt should remain free from infection during this shift. Standard precautions used during care. Problem: Knowledge Deficit Goal: Patient/patient ambulatory services representative demonstrates understanding of disease process, treatment [...] be free from fall Description: Interventions: 1. Ideal to environment 2. Hourly rounds addressing the [...] non-skid footwear 11. Teach patient and patient ambulatory services representative to maintain environment for safety and [...] (cane, walker) within reach 19. Request patient ambulatory services representative bring adaptive equipment/mobility aids from home or obtain and provide as needed 20. Consult pharmacy regarding effects of med's affecting mobility, cognition, and alternatives 21. Obtain physician order for PT if risk factors associated with mobility are present 22. Obtain physician order for OT as appropriate 23. Utilize diversional activities 24. Educate patient and patient ambulatory services representative how to maintain a safe environment during visitationtimes (notify nurse prior to leaving bedside) 25. Consider appropriateness of medical or non-biomedical repair technician 26. Set up voiding schedule as appropriate (every 2 hours) Outcome: Progressing Note: Evaluation of progress towards goal: Pt should remain free from fall during this shift. Bed in lowest position and locked, side rails up /4, personal items and call light within reach, non skid socks applied, environment clear of hazards. [facility] [email or web address] [id number] Nurse Note* Lauren Gaona RN - 06/18/2025 6:26 PM EDT Patient confused, on heparin drip, constantly trying to get out of bed, hitting, kicking and tryingto bite staff. Unable to follow direction. Dr Davis notified, says will order seroquel. Notified ofQT from EKG done 06/17 at [place]. [facility] [email or web address] [id number] Progress note* Discharge Planning Note - Martina Mckeon - 06/18/2025 1:25 PM EDT DISCHARGE PLANNING NOTE Referral sent to [facility] in [place] (P# ; F# ) [facility]08-05-2025 Progress note* Discharge Planning Note - Brianna Verduzco - 06/18/2025 1:04 PM EDT DISCHARGE PLANNING NOTE Referral sent to. [facility] in [place], [place] (P# ; F# ) [employer]08-05-2025 Progress note* Discharge Planning Note - Dawson [...] Acute rehab, Home with home health services Electrician Constructor Supervisor met with patient, introduced self, and explained role. Patient educated on safe discharge plan. Pt admitted 06/17/2025 with CVA (cerebral vascular accident) (CMS-HCC) [I63.9] per chart review. Consults: Neurology Discharge Barriers per Daily Transition Rounds and chart review: PT/OT, s/p TNK- bedrest, MRi, echo. Past Medical History: Diagnosis Date Atrial fibrillation ([facility]) BPH (benign prostatic hyperplasia) Broken nose CVA (cerebral vascular accident) ([facility]) 06/17/2025 Diabetes ([facility]) Epistaxis Hypertension Hyponatremia secondary to SIADH Hypothyroid [...] patient to appointments, shopping and assisting with medical videographer. Caregiver's personal limitations include Patient's feels she [...] vs acute rehab. PCP: TANYA Lozano Pharmacy: [facility] PCP and pharmacy confirmed with patient. CN offered to assist with follow up appointment arrangements; . TANYA Lozano added to Follow Up Providers for Summary of Care communication. Per patient self-report: Drug use: denies Smoking: denies ETOH Use: rarely Current discharge plan is: Home with [facility] vs acute rehab pending PT/OT eval. CN spoke with patient'swife she has used [facility] in past. Tasked to send referrals to [facility] and to [facility]. Services Requested: Services Requested Patient expects [...] Evaluation of progress towards goal: Home with [facility] Autogenerated Goal Will continue to follow as plan of care develops. CN discussed benefits and importance of medication compliance and follow ups. Please feel free to reach out for any discharge planning questions. - Dawson Yost RN 06/18/25 12:24 PM [facility]08-05-2025 Progress note* PT/OT/PRODUCT STRATEGY DIRECTOR - Zaire Sierra CCC- PRODUCT STRATEGY DIRECTOR - 06/18/2025 10:35 AM EDT Speech Therapy Evaluation Bedside Swallow/Feeding Evaluation Speech & Language Cognitive Evaluation Discharge Recommendations for Safe Patient Transition PRODUCT STRATEGY DIRECTOR Post Discharge Therapy Recommendations: Continue ST services [...] decline resulting from CVA. Prognosis Services: Skilled PRODUCT STRATEGY DIRECTOR services to address above deficits Prognosis/Potential: Good Considerations: Age, Cognition Discharge Recommendations for Safe Patient Transition PRODUCT STRATEGY DIRECTOR Post Discharge Therapy Recommendations: Continue ST services [...] should be further evaluated. Prognosis Services: Skilled PRODUCT STRATEGY DIRECTOR services to address the above deficits Prognosis/Potential: [...] Dysphagia Problem: Swallowing Dates: Start: 06/18/25 Disciplines: PRODUCT STRATEGY DIRECTOR Goal: STG: Patient will complete safety strategies independently during PO intake 90% of the time Dates: Start: 06/18/25 Expected End: 07/22/25 Disciplines: PRODUCT STRATEGY DIRECTOR Template: ST - Rehab Speech Problem: Auditory Comprehension Dates: Start: 06/18/25 Disciplines: PRODUCT STRATEGY DIRECTOR Goal: LTG: Patient will comprehend communication related to basic medical and social needs and utilize compensatory strategies to maintain safety in a functional living environment Dates: Start: 06/18/25 Expected End: 07/22/25 Disciplines: PRODUCT STRATEGY DIRECTOR Goal: STG: Patient will answer simple yes/no questions with 90% accuracy with minimal cueing. Dates: Start: 06/18/25 Expected End: 07/22/25 Disciplines: PRODUCT STRATEGY DIRECTOR Goal: STG: Patient will answer complex yes/no questions with 90% accuracy with minimal cueing Dates: Start: 06/18/25 Expected End: 07/22/25 Disciplines: PRODUCT STRATEGY DIRECTOR Problem: Verbal Expression Dates: Start: 06/18/25 Disciplines: PRODUCT STRATEGY DIRECTOR Goal: LTG: Patient will utilize compensatory strategies to communicate wants and needs effectively to different conversational partners, maintain safety and participate socially in a functional living environment Dates: Start: 06/18/25 Expected End: 07/22/25 Disciplines: PRODUCT STRATEGY DIRECTOR Goal: STG: Patient will complete simple to complex divergent and convergent naming tasks with 90% accuracy with minimal cueing to improve thought organization Dates: Start: 06/18/25 Expected End: 07/22/25 Disciplines: PRODUCT STRATEGY DIRECTOR Goal: STG: Patient will use word retrieval strategies during structured interactions to improve functional communication during activities of daily living with 90% accuracy with minimal cueing Dates: Start: 06/18/25 Expected End: 07/22/25 Disciplines: PRODUCT STRATEGY DIRECTOR Speech Therapy Care Plan (Resolved) There are no resolved problems. Principal Problem: CVA (cerebral vascular accident) ([facility]) [facility]08-05-2025 Progress note* PT/OT/PRODUCT STRATEGY DIRECTOR - LU Chino - 06/18/2025 7:37 AM EDT Occupational Therapy OT Type of Visit: Medical deferral Reason For Medical Deferral: Activity limitations Activity Limitations: Strict bedrest (Per TNK protocol. Will continue to follow.) [facility]08-05-2025 Progress note* PT/OT/PRODUCT STRATEGY DIRECTOR - Ayaan Campos PT - 06/18/2025 7:28 AM EDT Physical Therapy PT Type of Visit: Medical deferral (strict bedrest s/p TNK per protocol) Reason For Medical Deferral: Activity limitations Activity Limitations: Strict bedrest Will check back as appropriate. [facility]08-05-2025 Plan of care note* Plan of Care - Lin Rhodes RN - 06/18/2025 7:14 AM EDT Problem: Pain Goal: Patient goal is pain score less than 4, able to rest, and participant in treatment plan as appropriate Description: INTERVENTIONS: 1. Encourage patient or legal ambulatory services representative to report early pain and ask [...] per policy 9. Teach patient or legal ambulatory services representative interventions for comforting Outcome: Progressing Note: [...] at the bedside 7. Instruct patient/ patient ambulatory services representative about use of safety devices 8. Include patient/ patient ambulatory services representative in decisions related to safety Outcome: [...] hygiene technique. 7. Identify and instruct patient/patient ambulatory services representative in use of appropriate isolation precautionsfor identified infection/symptoms. 8. Provide and discuss with patient/patient ambulatory services representative on educational MDRO sheet. 9. Encourage and monitor nutritional status daily and consult manager net if indicated. 10. Implement neutropenic guidelines as needed. Outcome: Progressing Note: Evaluation of progress towards goal: Labs and vitals monitored as ordered. Medications administered as ordered. Patient remains free from infection at this time. Problem: Moderate - High Risk Fall Score Description: Val[place] Fall Score of =/> 25 [facility] Goal: Patient should be free from fall Description: Interventions: 1. Ideal to environment 2. Hourly rounds addressing the [...] non-skid footwear 11. Teach patient and patient ambulatory services representative to maintain environment for safety and [...] (cane, walker) within reach 19. Request patient ambulatory services representative bring adaptive equipment/mobility aids from home or obtain and provide as needed 20. Consult pharmacy regarding effects of med's affecting mobility, cognition, and alternatives 21. Obtain physician order for PT if risk factors associated with mobility are present 22. Obtain physician order for OT as appropriate 23. Utilize diversional activities 24. Educate patient and patient ambulatory services representative how to maintain a safe environment during visitationtimes (notify nurse prior to leaving bedside) 25. Consider appropriateness of medical or non-biomedical repair technician 26. Set up voiding schedule as appropriate (every 2 hours) Outcome: Progressing Note: Evaluation of progress towards goal: Fall risk assessment preformed and safety measures in place. Education given to family/patient. Will continue to monitor. [email or web address] [id number] Plan of care note* Plan of Care - Rich Nelson RN - 06/17/2025 7:23 PM EDT Problem: Pain Goal: Patient goal is pain score less than 4, able to rest, and participant in treatment plan as appropriate Description: INTERVENTIONS: 1. Encourage patient or legal ambulatory services representative to report early pain and ask [...] per policy 9. Teach patient or legal ambulatory services representative interventions for comforting Outcome: Progressing Note: [...] at the bedside 7. Instruct patient/ patient ambulatory services representative about use of safety devices 8. Include patient/ patient ambulatory services representative in decisions related to safety Outcome: [...] hygiene technique. 7. Identify and instruct patient/patient ambulatory services representative in use of appropriate isolation precautionsfor identified infection/symptoms. 8. Provide and discuss with patient/patient ambulatory services representative on educational MDRO sheet. 9. Encourage and monitor nutritional status daily and consult manager net if indicated. 10. Implement neutropenic guidelines as needed. Outcome: Progressing Note: Evaluation of progress towards goal: Patient remains free from signs of infection at this time. Will continue to monitor. Problem: Knowledge Deficit Goal: Patient/patient ambulatory services representative demonstrates understanding of disease process, treatment [...] Score of =/> 25 or indicated by [facility] Re[facility] Assessment Goal: Patient should be free from fall Description: Interventions: 1. Ideal to environment 2. Hourly rounds addressing the [...] non-skid footwear 11. Teach patient and patient ambulatory services representative to maintain environment for safety and [...] (cane, walker) within reach 19. Request patient ambulatory services representative bring adaptive equipment/mobility aids from home or obtain and provide as needed 20. Consult pharmacy regarding effects of med's affecting mobility, cognition, and alternatives 21. Obtain physician order for PT if risk factors associated with mobility are present 22. Obtain physician order for OT as appropriate 23. Utilize diversional activities 24. Educate patient and patient ambulatory services representative how to maintain a safe environment during visitationtimes (notify nurse prior to leaving bedside) 25. Consider appropriateness of medical or non-biomedical repair technician 26. Set up voiding schedule as appropriate (every 2 hours) Outcome: Progressing Note: Evaluation of progress towards goal: Fall risk assessment preformed and safety measures in place. Education given to family/patient. Will continue to monitor. Additional Comments: [facility]07-25-2025 NotePatient Education Nephrology Hyponatremia Hyponatremia is when [...] Follow these instructions at home: ??? Take enev-ixd-usookes and prescription medicines only as told by [...] provider. Document Revised: 05/11/2022 Document Reviewed: 05/11/2022 Rachio Patient Education ? 2023 [employer].[facility] 06-05-2025 History of Present illness Narrative* Flip Dubose RN - 06/05/2025 7:02 PM EDT Pt discharge- pt taken downstairs by wheelchair by son and by car [facility] . Son givenmed s, discharge instructions . Questions answered * Flip Dubose RN - 06/05/2025 5:58 PM EDT Pt status- neuro RIGGER CHIEF Nicole Musa called me in MICU few hrs ago. . Nicole spoke with Gladys , Kishore by phone. . Kishore is adament, despite [place] mild confusion, that she and her son want to drive Alexx back home to [place] to care for him at home tonight [...] 147 See Reflexed IPF Result Warfarin dose TECHNICIAN ASSISTANT: 5 mg MWF and 2.5 mg all [...] Jackman PharmD BCPS BCCCP 06/05/2025 11:23 AM Electronically signed by Starr Jackman [facility] at 06/05/2025 11:30 AM EDT * Venessa Najera, PT - 06/05/2025 10:32 AM EDT Physical Therapy Facility/Department: [facility] Initial Evaluation Patient [...] within reach, Gait belt, Left in chair -[facility] Basic Mobility - Inpatient How [...] A Little [facility] Inpatient Mobility Raw Score : 22 [facility] Inpatient T-Scale Score : 53.28 Mobility Inpatient [facility] 0-100% Score: 20.91 Mobility Inpatient [facility] G-Code Modifier : CJ Restrictions/Precautions Restrictions/Precautions Activity [...] Level of Assist for Transfers: Independent Active Document Image Technician: Yes Mode of Transportation: Truck Occupation: Retired [...] Deann Carter MD Internal Medicine Resident, PGY-2 [place], [place] 06/05/2025,10:28 AM Attending Physician Statement I [...] [facility] after a fall which resulted in nasal bone fracture. Patient initially presented to [facility] yesterday and was treated with Afrin and nasal pressure, patient was discharged home with ENT follow-up. When patient returned home he blew his nose and resulted in brisk bleeding from the left nare prompting him to return to the ER yesterday evening. He had bilateral nasal packing with Rhino Rocket's placed and was transferred to [facility] evaluation. Patient was seen by [...] this chart was generated using voice recognition [employer] dictation software. Although every effort was made to ensure the accuracy of this automated shipping assistant, some errors in shipping assistant may have occurred. * Geo Rehman [facility] - 06/04/2025 3:32 PM EDT Pharmacy Note Warfarin Consult follow-up Recent Labs 06/04/25 1423 INR 1.8 Recent Labs 06/02/25 1308 06/03/25 0618 HGB 12.3* 12.3* HCT 36.5* 35.2* PLT 147 See Reflexed IPF Result Warfarin dose TECHNICIAN ASSISTANT: 5 mg MWF and 2.5 mg all [...] MIRELES MD Pediatric Otolaryngology-Head and Neck Surgery [facility] Otolaryngology group Office ph# [phone] Also available in [employer] * Rowena Duong [facility] - 06/03/2025 11:31 AM EDT Pharmacy Note [...] from the original note were not included. [facility] Office: [phone] Viktor Monet DO, Jermaine Gustafson DO, Brigida Pina DO, Jonah Cornelius DO, Layne Jiménez MD, Ashley Miller MD, Pierre Murillo MD, Gabbi Corado MD, Panfilo Borges MD, Sandy Gavin MD, Michael Moy MD, Aleksandra Rhoades DO, Libzet Bryson MD, Pardeep Marroquin MD, Axel Monet [...] Trivedi, AVELINA, Keren Gutierrez, AVELINA, Beto Guzman, SCALES INSPECTOR, Kemi Hdz, CRISTA, Janelle Luna, AVELINA, Celena Johnson, AVELINA, Annia Rogers, AVELINA, Christina Cuevas, AVELINA, Marline Vila PA-C, Adore Cueto, AVELINA, Emily Chiang, SCALES INSPECTOR, Maria Elena De La Torre, SCALES INSPECTOR, Venessa Mitchell, AVELINA, RAMÓN FormanC, Rachel Nascimento PA-C, Lorna Salazar, AVELINA, Edwina Cole, INDIAN NANNY, Alex Castillo, AVELINA, Leelee Easley, AVELINA [facility] IN-PATIENT SERVICE [facility] Progress Note 06/03/2025 8:19 AM Name: Dariel Zabala Acct: [id number] Room: [address] [place] [address] Day: 1 Admit Date: 06/02/2025 10:01 AM [...] hypertension, type2 diabetes, SIADH initially presented to [place] emergency department for nosebleeding after mechanical fall out of a chair. CT scan reportedly showed nasal bone fracture. He was transferred to [place] for ENT evaluation. ENT deflated nasal packings [...] , PHART , PH , POCPCO2 , ZCF1SGT , PCO2 , POCPO2 , PO2ART , PO2 , POCHCO3 , DOW1NUP , HCO3 , NBEA , PBEA , BEART , BE , THGBART , THB , EQC9NYD , YDQV2SUN , E8WEPNER , O2SAT , FIO2 No results found [...] DAIGLE MD Pediatric Otolaryngology-Head and Neck Surgery [facility] Otolaryngology group Office ph# [phone] Also available in [employer] * Juju Garcia RPH - 06/02/2025 2:42 [...] 06/02/2025 10:44 AM EDT Pt arrived from [facility] via [facility]. Pt A&Ox4, admission database complete. Mediations reconciled. Pt put on telemetry and continuous pulse ox. Vitals stable. Bilat rhino rockets in place. No active epistaxis at this time. Primary team made aware of arrival. Electrician Constructor Supervisor called pt's to make her aware if the transfer, no answer left message. documented in this encounterBon [facility]07[facility] Hospital course Narrative* Pepito Grant MD - 06/05/2025 3:29 PM EDT Images from the original note were not included. [facility] Department of Internal Medicine - Critical Care Service INPATIENT DISCHARGE SUMMARY PATIENT IDENTIFICATION: NAME: Dariel Zabala : 1940 Acct: [id number] Admit Date: 06/02/2025 Discharge date: No discharge [...] in nasal bone fracture. [facility] and was treated with Afrin and nasal pressure, patient wasdischarged home with ENT follow-up. When patient returned home he blew his nose and resulted in brisk bleeding from the left nare prompting him to return to the ER yesterday evening. He had bilateralnasal packing with Rhino Rocket's placed and was transferred to [facility] for ENT evaluation. Patient was seen [...] 1 weeks with PCP, in 1 weeks liquefier Time Spent on discharge is more than 15 minutes in the examination, evaluation, counseling and review of medications and discharge plan. Pepito Grant MD Internal Medicine Resident Critical Care Service Cosigned by Flaco Ren MD at 06/05/2025 5:16 PM EDT documented in this encounterBon [facility]07-23-2025 Hospital Discharge instructions* Discharge Instructions* Pepito Grant [...] 2-3 Please follow-up with your PCP and liquefier (kidney doctor )for continued care Please go to the nearest ER if you have worsening of current symptoms or started experiencing new symptoms like shortness of breath, chest pain, palpitations, dizziness, loss of consciousness, any bleed from the nose for further evaluation management documented in this encounterBon [facility]07-07-2025 NoteNurse Consultation Note Reason for Visit patient [...] 03/31/2015 Recorded influenza virus vaccine, inactivated 08/02/2014 [facility] NotePatient Education Cardiovascular Atrial Fibrillation Atrial [...] these instructions at home: Medicines ??? Take abuf-cif-qfnseko and prescription medicines only as told by [...] provider. Document Revised: 07/20/2023 Document Reviewed: 07/20/2023 Rachio Patient Education ? 2023 [employer]. Caregiving Fall Prevention in the Home, Adult Falls can cause injuries and can happen to people of all ag (more content not included)...[facility]02-17-2025 NoteNurse Consultation Note Reason for Visit [...] 03/31/2015 Recorded influenza virus vaccine, inactivated 08/02/2014 [facility]ed[facility]02-10-2025 NotePatient Education Cardiovascular Atrial Fibrillation Atrial [...] of the heart. ??? An ambulatory cardiac nurse specialist to record your heart's activity for [...] the main warning s (more content not included)...[facility] 11-28-2024 History of Present illness Narrative* Jose L Chow NP - 11/28/2024 1:00 PM EST Images from the original note were not included. HISTORY OF PRESENT ILLNESS: Dariel Zabala is an 84 y.o. @ male. 1ST PO LT CTR 11/19/24 (9 DAYS) @ [facility] PAIN DIFFUSE IN [...] for requiring urgent evaluation. Jose L Chow APRN-SCALES INSPECTOR documented in this encounterBarnes-Jewish West County [id number] History of Present illness Narrative* Emiliano Escamilla [...] 2011 Diabetes mellitus ([facility]/HCC) 11/26/2024 ED (erectile dysfunction) 11/26/2024 Encounter for surveillance of abnormal nevi 11/26/2024 Erectile dysfunction due to arterial insufficiency 11/26/2024 Fall at home 11/26/2024 Generalized osteoarthritis 09/12/2012 Hard of hearing 11/26/2024 Resolved Ambulatory Problems Diagnosis Date Noted No Resolved Ambulatory Problems No Additional Past Medical History Past Surgical History: Procedure Laterality Date CARPAL TUNNEL RELEASE NECK SURGERY TRIGGER FINGER RELEASE Right 03/26/2024 [facility] No Known Allergies [...] NOSTRIL ONCE DAILY AT BEDTIME [DISCONTINUED] HYDROcodone-acetaminophen ([place]) 5-325 MG tablet [DISCONTINUED] tiZANidine (Zanaflex) 4 [...] dementia. Dr Garcia notified. documented in this encounterBarnes-Jewish West County [id number] NoteProgress Note-Physician Patient: DARIEL ZABALA Age: 84 years Sex: Male : 1940 Associated Diagnoses: None Author: Carmine COHN, Chau Pineda Postoperative Information Postoperative disposition: Postoperative disposition: To PACU. Optimetrix number: Optimetrix number [id number]. Anesthetic utilized: General. Health Status Allergies: Allergic [...] Discharge when meets criteria ( To home ).[facility] HospitalComment on above:Result Comment: Electronically Signed By: Chau Lou MD\.br\Date and Time Signed: 11/19/24 15:19 EST 11-19-2024 Evaluation + Plan noteExtracted from: Title:ANES Post-operative Note---General Author: Chau Lou MD Date:11/19/24 Plan Transfer/Discharge: Transfer/Discharge Discharge when meets criteria ( To home ). Extracted from: Title:ANES Pre-operative Note 2022 Author:Chau Goode Date:11/19/24 Plan [place] [employer] of Anesthesiologists (ASA) physical status classification: Class III. Anesthetic Preoperative Plan: Anesthesia General. Future Appointments Appointment Date:12/12/2024 10:15:00 AM Scheduled Provider:Dixon Dubose PA-C [facility] Type:Cardiology Follow Up (FT) Appointment Date:05/02/2025 08:00:00 AM Scheduled Provider: Location:[facility] Appointment Type:FM Medicare Wellness Subsequent Future Scheduled Tests Laboratory* Basic Metabolic Panel 11/13/24 [facility] 01-06-2025 NotePatient Education - Text [place], [place] [facility] CARPAL TUNNEL RELEASE INSTRUCTIONS [...] Patient Signature Axel Hernández, DO [facility] [address] [place] [address] Reviewed: 04-22[facility]01-06-2025 NoteProgress Note-Physician Patient: DARIEL ZABALA Age: [...] daily, # 90 tab(s), Refills(s) 0, [id number], 178, cm, 06/11/24 12:53:00 EDT, Height/Length Dosing, 82, kg, 06/11/2412:56:00 EDT, Weight Dosing Sodium Chloride 1000 mg oral tablet, soluble: See Instructions, 30 tab(s), Refill(s) 0, Take one tablet daily, [id number], 178.6, cm, 11/01/24 9:21:00 EST, Height/Length Dosing, 81.3, kg, 11/01/24 9:21:00 EST, Weight Dosing Synthroid 25 mcg(0.025 mg) Tab: See Instructions, TAKE 1 TABLET DAILY ON AN EMPTY STOMACH, # 3 tab(s), Refills(s) 0, [id number], 178, cm, 08/07/24 10:59:00 EDT, Height/Length Dosing, 78.2, kg, 08/07/24 10:59:00 EDT, Weight Dosing atenolol 25 mg Tab: See Instructions, take 1/2 tab daily, # 90 tab(s), Refills(s) 1, Pharmacy: [facility], 178, cm, 09/10/24 13:01:00 EDT, Height/Length Dosing, 80.1, kg, 09/10/24 13:01:00 EDT, Weight Dosing finasteride 5 mg Tab: 5 mg = 1 tab(s), Oral, Daily, # 90 tab(s), Refills(s) 1, Pharmacy: [facility]/pharmacy #[id number], 178.6, cm, 11/01/24 9:21:00 EST, Height/Length Dosing, 81.3, kg, 11/01/24 9:21:00 EST, Weight Dosing fluticasone Nasal 0.05 mg/inh Rivers: See Instructions, 48 mL, Refill(s) 1, USE 1 SPRAY IN EACH NOSTRIL TWICE A DAY, [id number], 178, cm, 08/28/24 14:50:00 EDT, Height/Length Dosing, 82.2, kg, 08/28/24 14:50:00 EDT, Weight Dosing gabapentin 300 mg Cap: 300 mg = 1 cap(s), Oral, Daily, # 90 cap(s), Refills(s) 1, Pharmacy: [facility], 178, cm, 07/03/24 10:05:00 EDT, Height/Length Dosing, 80.8, kg, 07/03/2410:05:00 EDT, Weight Dosing glimepiride 2 mg Tab: See Instructions, TAKE 1 TABLET DAILY, # 3 tab(s), Refills(s) 0, Pharmacy: [facility], 178, cm, 08/07/24 10:59:00 EDT, Height/Length Dosing, 78.2, kg, 08/07/24 10:59:00 EDT, Weight Dosing omeprazole 40 mg Cap-DR: 40 mg = 1 cap(s), Oral, Daily, # 90 cap(s), Refills(s) 1, Pharmacy: [facility], 178, cm, 08/28/24 14:50:00 EDT, Height/Length Dosing, 82.2, kg, 08/28/24 14:50:00 EDT, Weight Dosing pravastatin 40 mg Tab: 40 mg = 1 tab(s), Oral, Daily, # 90 tab(s), Refills(s) 3, Pharmacy: [facility], 178, cm, 09/10/24 13:01:00 EDT, Height/Length Dosing, 80.1, kg, 09/10/24 13:01:00 EDT, Weight Dosing sildenafil 100 mg Tab: 100 mg = 1 tab(s), Oral, Daily, PRN for erectile dysfunction, 1 hour before sexual activity, # 5 tab(s), Refills(s) 0, Pharmacy: [facility], 178, cm, 07/03/24 10:05:00 EDT, Height/Length Dosing, 80.8, kg, 07/03/24 10:05:00 EDT,... tamsulosin 0.4 mg Cap: 0.4 mg = 1 cap(s), Oral, Daily, # 90 cap(s), Refills(s) 1, Pharmacy: [facility], 178, cm, 09/10/24 13:01:00 EDT, Height/Length Dosing, 80.1, kg, 09/10/2413:01:00 EDT, Weight Dosing Documented Medications Documented CoQ10: See Instructions, PRN Prophylaxis, Refills(s) 0 D3: See Instructions, Oral Daily- patient states he takes 500 once a day, Refills(s) 0 Jantoven 5 mg oral tablet: 5 mg = 1 tab(s), Oral, Daily, Refills(s) 0, Blood Thinner (more content not included)...[facility] HospitalComment on above:Result Comment: Electronically Signed By: Carmine COHN, Chau Pineda\.br\Date and Time Signed: 11/19/24 11:51 [id number] Hospital Discharge instructions Patient Education 11/12/2024 12:08:21 Hernández - Carpal Tunnel Release Instructions (Custom) (CUSTOM) [place], [place] [facility] CARPAL TUNNEL RELEASE INSTRUCTIONS [...] Patient SignatureMiclolis Bill Hernández, DO [facility] [address] [place] [id number] Reviewed: 6-11/19/2024 13:10:26 Post Op Patient Instructions - FT (Custom) (CUSTOM) Follow Up Care 10/03/2024 14:28:43 With:GORDO Weller Address: [address] [place] [phone] Business (1) When:11/28/2024 13:00:00 Comments:Keep scheduled appointment. Call for any problems. [facility] 12-30-2024 NotePatient Education - Text [place], [place] [facility] CARPAL TUNNEL RELEASE INSTRUCTIONS [...] Patient Signature Axel Hernández, DO [facility] [address] [place] [address] Reviewed: 04-22[facility]12-30-2024 NoteNurse Consultation Note Reason for Visit [...] Daily, 1 refills fluticasone Nasal 0.05 mg/inh Rivers, See Instructions, Self Directed gabapentin 300 mg [...] 03/31/2015 Recorded influenza virus vaccine, inactivated 08/02/2014 RecordedDay[facility]11-15-2024 History of Present illness Narrative* Shala Farrell MD - 09/28/2024 9:30 AM EST [facility] Patient: Dariel Zabala [address], [address] , Sex: 1940, Male [place] [id number] Height: 180 cm Ref Phys: Hernández fax [...] Doub=doublet; Fasc=fasciculation; FFE=full for effort; Fib=fibrillation; Myokym=myokymia; [place]=myotonic potential; N,0=normal; NR=no response; Polyph=polyphasia; Pos=positive [sharp] [...] available for comparison. Shala Farrell M.D. Diplomate, [place] Board of Psychiatry and Neurology (neurology, epilepsy, sleep medicine) Diplomate, [place] Board of Clinical Neurophysiology Diplomate, [place] Board of Preventive Medicine (clinical informatics) . documented in this [facility]10-07-2024 Telephone encounter Note* Telephone Encounter - Miguel Moe - 08/20/2024 10:50 AM EDT LVM to RC in regard to BUE referral from Dr. Hernández--Approved to schedule--25.00 co-pay will be applied to toward OOP. [facility] [id number] Miscellaneous Notes* Telephone Encounter - Miguel Moe - 08/20/2024 10:50 AM EDT LVM to RC in regard to BUE referral from Dr. Hernández--Approved to schedule--25.00 co-pay will be applied to toward OOP. 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 Having rheumatoid arthritis, gout, or diabetes. Being [...] splint on your hand. General instructions Take eomv-lpu-sdoquuw and prescription medicines only as told by [...] provider. Document Revised: 03/17/2020 Document Reviewed: 03/17/2020 Rachio Patient Education 2022 [employer]. Follow Up Care 03/01/2024 15:40:29 With:GORDO Weller Address: [address] [place], [place] [id number] Business (1) When:04/04/2024 10:15:00 Comments:Keep scheduled appointment [facility]01-05-2024 Evaluation note* Encounter Date Diagnosis Assessment [...] sodium level at upcoming appt in January [employer] Other 12-20-2023 Evaluation note* Encounter Date Diagnosis [...] further dizziness symptoms would recommend f/u with pull over as well. [employer] Other 11-17-2023 Evaluation note* Encounter Date Diagnosis Assessment Notes Treatment Notes Treatment Clinical Notes Sep, Type 2 diabetes mellitus (ICD-10 - E11.9) 66[employer] com Other 11-17-2023 Miscellaneous Notes* Telephone Encounter - Venessa Riggins RN - 09/30/2023 12:29 PM EST Called patient back and reviewed plan from his call with Nurse Associate Professor Physician at 11:36 AM. See my note Patient already called his PCP as advise and waiting call back for scheduling. He was hospital discharged on 08/26 for cognitive problems and low sodium. He finished his pills for low sodium today. NOC closing was given Conferenced him to [facility] for an appt with nephrology as [...] have any questions, you can call Nurse computer system validation specialist back. * Telephone Encounter - Venessa [...] none PCP luis appt. Conferenced him to [facility] and then call dropped. My [employer] and [employer] lost connection. NOC closing was given GO TO THE EMERGENCY ROOM OR CALL 911 IF: * You develop any new symptoms * Your condition worsens * You are concerned or anxious about your condition for any other reason. If you have any questions, you can call Nurse computer system validation specialist back. documented in this encounterCleveland Clinic [facility]11-08-2023 Evaluation note* Encounter Date Diagnosis Assessment Notes Treatment Notes Treatment Clinical Notes Sep, Hyponatremia (ICD-10 - E87.1) Recent sodium 136 at low end of normal, given significance of symptoms and recommendation of hospital for f/u will refer to nephrology patient requesting [place] Sep, Anticoagulant long-term use (ICD-10 - [...] glimepiride. Sep, Immunization due (ICD-10 - Z23) [employer] com Other 10-16-2023 Evaluation note* Encounter Date Diagnosis Assessment Notes Treatment Notes Treatment Clinical Notes Aug, Hyponatremia (ICD-10 - E87.1) [employer] com Other 08-03-2023 Evaluation note* Encounter Date Diagnosis [...] loss (ICD-10 - H91.90) Referral to local sustainable agriculture specialist Jun, Dermatitis (ICD-10 - L30.9) Can trial topical steroid PRN, discussed may be secondary to dry skin. Recommend daily use of lotion Jun, Hypothyroidism (ICD-10 - E03.9) Due for TFTs prior to next visit Jun, Type 2 diabetes mellitus (ICD-10 - E11.9) Due for a1c prior to next visit Jun, BPH (benign prostatic hyperplasia) (ICD-10 - N40.0) 66. com Other 08-03-2023 Reason for referral (narrative)* Reason Medication managemen t through [facility] - Coumadin management with INR goal 2-3 Diagnosis 1 Anticoagulant long-t erm use (Z79.01) Referral Organization [facility] Rodo Brown Referring Provider First Name Jada Referring Provider Last Name [facility] Referring Provider Specialty [facility] Referred Organization [facility] Referred Address [address], [place],[address] Referred Provider Specialty Milvia felix Referral Priority Routine General Notes Gabrielle Reid 01/2023 01:34:29 PM >this is an order not a referral, clinical informed and will fax order over for standing order INR to [facility] Reason * FU 06/29 CALL he aring loss, issue with hearing aids Diagnosis 1 Hearing loss (H91.90 ) Referral Organization [facility] Rodo Brown Referring Provider First Name Jada Referring Provider Last Name [facility] Referring Provider Specialty [facility] Referred Organization [facility] Referred Address ,[place], [place],[address] Referred Provider Specialty Audiologists Referral Priority Routine General Notes Gabrielle Reid 01/2023 01:28:34 PM >referral received and faxed 66. com Other 04-27-2010 History of Past illness Narrative* Problem Noted Date Diagnosed Date Resolved Date Myalgia 03/10/2010 03/01/2011 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 and other lower urinary tract symptoms (LUTS) 08/11/2006 01/11/2013 Elevated prostate specific antigen (PSA) 03/07/2012 documented as of this encounter (statuses as of 09/30/2023) [facility] Plan note No data available for this section [facility] + Plan note Future Appointments Appointment Date:03/08/2024 01:00:00 PM Scheduled Provider:Edwin Garcia MD Location:[facility] Appointment Type: Open Appointment Date:03/26/2024 01:45:00 PM Scheduled Provider: Location:[facility] Appointment Type:Surgery FT Appointment Date:05/01/2024 09:00:00 AM Scheduled Provider: Location:[facility] Appointment Type: Lab Draw Appointment Date:05/03/2024 08:00:00 AM Scheduled Provider: Location:[facility] Appointment Type: Medicare Wellness Subsequent Appointment Date:05/03/2024 09:00:00 AM Scheduled Provider:Edwin Garcia MD Location:[facility] Appointment Type: Open Future Scheduled Tests Laboratory* PSA Screen, Total 02/02/24 * CBC w/ Auto Diff 02/02/24 * Comprehensive Metabolic Panel 02/02/24 * Lipid [facility]02[facility] Future App[facility]ments Appointment Date:05/01/2024 09:00:00 AM Scheduled Provider: Location:[facility] Appointment Type:FM Lab Draw Appointment Date:05/03/2024 08:00:00 AM Scheduled Provider: Location:[facility] Appointment Type: Medicare Wellness Subsequent Appointment Date:05/03/2024 09:00:00 AM Scheduled Provider:Edwin Garcia MD Location:[facility] Appointment Type: Open Future Scheduled Tests Laboratory* PSA Screen, Total 02/02/24 * CBC w/ Auto Diff 02/02/24 * Comprehensive Metabolic Panel 02/02/24 * Lipid Panel 02/02/24 [facility] Future Appointments Appointment Date:05/01/2024 09:00:00 AM Scheduled Provider: Location:[facility] Appointment Type:FM Lab Draw Appointment Date:05/03/2024 08:00:00 AM Scheduled Provider: Location:[facility] Appointment Type: Medicare Wellness Subsequent Appointment Date:05/03/2024 09:00:00 AM Scheduled Provider:Edwin Garcia MD Location:[facility] Appointment Type: Open Appointment Date:05/25/2024 01:00:00 PM Scheduled Provider:Kashif Barnett MD [facility] [place] [facility] Type:Cardiology Follow Up (FT) Future Scheduled Tests Laboratory* PSA Screen, Total 02/02/24 * CBC w/ Auto Diff 02/02/24 * Comprehensive Metabolic Panel 02/02/24 * Lipid Panel 02/02/24 Radiology* Echo Transthoracic Complete 04/20/24 [facility] Future Appointments Appointment Date:05/03/2024 08:00:00 AM Scheduled Provider: Location:[facility] Appointment Type:FM Medicare Wellness Subsequent Appointment Date:05/03/2024 09:00:00 AM Scheduled Provider:Edwin Garcia MD Location:[facility] Appointment Type:FM Open Appointment Date:05/21/2024 10:00:00 AM Scheduled Provider: [facility] Type:CV Holter/Event (FT) Appointment Date:05/25/2024 01:00:00 PM Scheduled Provider:Kashif Barnett MD [facility] [place] App[facility] Type:Cardiology Follow Up (FT) [facility] Future Appointments Appointment Date:05/30/2024 03:45:00 PM Scheduled Provider:Kashif Barnett MD [facility] Type:Cardiology Follow Up (FT) Appointment Date:11/01/2024 09:15:00 AM Scheduled Provider:Edwin Garcia MD Location:[facility] Appointment Type: Open Appointment Date:05/02/2025 08:00:00 AM Scheduled Provider: Location:[facility] Appointment Type: Medicare Wellness Subsequent [facility] + Plan note Future Appointments Appointment Date:08/31/2024 01:00:00 PM Scheduled Provider:Kashif Barnett MD [facility] [place] Appointment Type:Cardiology Follow Up (FT) Appointment Date:11/01/2024 09:15:00 AM Scheduled Provider:Edwin Garcia MD Location:[facility] Appointment Type: Open Appointment Date:05/02/2025 08:00:00 AM Scheduled Provider: Location:[facility] Appointment Type: Medicare Wellness Subsequent [facility] Future Appointments Appointment Date:11/01/2024 09:15:00 AM Scheduled Provider:Edwin Garcia MD Location:[facility] Appointment Type:FM Open Appointment Date:12/11/2024 01:00:00 PM Scheduled Provider:Dixon Dubose PA-C [facility] Type:Cardiology Follow Up (FT) Appointment Date:05/02/2025 08:00:00 AM Scheduled Provider: Location:[facility] Appointment Type:FM Medicare Wellness Subsequent [facility] + Plan note Future Appointments Appointment Date:11/01/2024 09:15:00 AM Scheduled Provider:Edwin Garcia MD Location:[facility] Appointment Type:FM Open Appointment Date:11/19/2024 02:15:00 PM Scheduled Provider: Location:[facility] Appointment Type:Surgery FT Appointment Date:12/12/2024 10:15:00 AM Scheduled Provider:Dixon Dubose PA-C [facility] Type:Cardiology Follow Up (FT) Appointment Date:05/02/2025 08:00:00 AM Scheduled Provider: Location:[facility] Appointment Type: Medicare Wellness Subsequent [facility] + Plan note Future Appointments Appointment Date:11/19/2024 02:15:00 PM Scheduled Provider: Location:[facility] Appointment Type:Surgery FT Appointment Date:12/12/2024 10:15:00 AM Scheduled Provider:Dixon Dubose PA-C [facility] Type:Cardiology Follow Up (FT) Appointment Date:05/02/2025 08:00:00 AM Scheduled Provider: Location:[facility] Appointment Type: Medicare Wellness Subsequent [facility] + Plan note Future Appointments Appointment Date:12/24/2024 01:15:00 PM Scheduled Provider:[facility] Open Appointment Date:05/02/2025 08:00:00 AM Scheduled Provider: Location:[facility] Appointment Type: Medicare Wellness Subsequent Diagnostic Tests Pending * Basic Metabolic Panel 12/17/24 Future Scheduled Tests Laboratory* Basic Metabolic Panel 11/13/24 [facility] evaluation + Plan note Future Appointments Appointment Date:01/22/2025 10:15:00 AM Scheduled Provider:Edwin Garcia MD Location:[facility] Appointment Type: Open Appointment Date:05/02/2025 08:00:00 AM Scheduled Provider: Location:[facility] Appointment Type: Medicare Wellness Subsequent Future Scheduled Tests Laboratory* Basic Metabolic Panel 11/13/24 [facility] evaluation + Plan note Future Appointments Appointment Date:02/05/2025 01:30:00 PM Scheduled Provider:Edwin Garcia MD Location:[facility] Appointment Type: Open Appointment Date:05/02/2025 08:00:00 AM Scheduled Provider: Location:[facility] Appointment Type: Medicare Wellness Subsequent Future Scheduled Tests Laboratory* Basic Metabolic Panel 01/10/25 * Basic Metabolic Panel 11/13/24 [facility] evaluation + Plan note Future Appointments Appointment Date:05/02/2025 08:00:00 AM Scheduled Provider: Location:[facility] Appointment Type: Medicare Wellness Subsequent Future Scheduled Tests Laboratory* Basic Metabolic Panel 11/13/24 [facility] evaluation + Plan note Future Appointments Appointment Date:08/09/2025 10:40:00 AM Scheduled Provider:YANIQUE MCNEILL CNP Location:[facility] Appointment Type: Open Appointment Date:05/13/2026 08:00:00 AM Scheduled Provider: Location:[facility] Appointment Type: Medicare Wellness Subsequent Future Scheduled Tests Laboratory* Basic Metabolic Panel 11/13/24 [facility] evaluation [facility]No [facility] [employer] Other evaluation note* Diagnosis Pain in both upper extremities- Primary Carpal tunnel syndrome, bilateral Carpal tunnel syndrome [facility] Diagnosis Pre-op testing- Primary Unspecified pre-operative examination Right hand pain Pain in soft tissues of limb Arm weakness Other musculoskeletal symptoms referable to limbs documented in [facility] encounter [facility]* Diagnosis Foreign body of right ear, initial encounter- Primary documented in this encounter [facility]* Diagnosis Status post carpal tunnel release- Primary Other postprocedural status documented in this encounter [facility]* Diagnosis Fracture of nasal [...] and immunity disorders [facility]re[facility] Primary 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 com Other History general Narrative - Reported* Type Description Date Medical History type 2 diabetes Medical History hypothyroid Medical History Afib Surgical History multiple neck sx Surgical History tonsillectomy Surgical History adenoidectomy Surgical History [facility] cataract Hospitalization History see above Hospitalization History low sodium- [facility] 10/2023 66. com Other History general Narrative - Reported* Type Description Date Medical History type 2 diabetes Medical History hypothyroid Medical History Afib Surgical History multiple neck sx Surgical History tonsillectomy Surgical History adenoidectomy Surgical History [facility] cataract Hospitalization History see above Hospitalization History low sodium- [facility] 10/2023 Hospitalization History [place]--Influe nza A, hyponatremia, paroxysmal afib, altered mental status, type 2 DM, generalized weakness hypomagnesiema, RADHA 11/13/23-11/15/23 66. com Other Hospital Discharge instructions No data available for this section [facility] instructionsNot on file [facility] encounter[facility] Discharge instructionsAmbulatory Orders* Initiate Home Health [...] see your PCP in the next [facility] days[facility] Work Phone: Progress note No data available for this section [facility] for visit Narrative* Auth/Cert (Routine) Specialty Diagnoses / Procedures Referred By Contac t Referred To Contact Diagnoses Epistaxis Nasal fracture Fracture of nasal bones, initial encounter for closed fracture Beto Hedrick DO [address] [place] [address] Phone: tel: fax: [facility] [address] [place] [address] Referral ID Status Reason Start Date Expiration Date Visits Re quested Visits Authorized [id number] 1 1 [facility] for visit Narrative* Auth/Cert Specialty Diagnoses / Procedures Referred By Contac t Referred To Contact Diagnoses CVA [facility] [address] [place] [phone] Referral ID Status Reason Start Date Expiration Date Visits Re quested Visits Authorized [id number] 1 1 [facility] Summary Purpose Family History No Family [...] hospitalization for symptomatic hyponatremia, [facility] [place] Dr. Lara ph [phone], fax [phone] Diagnosis 1 Hyponatremia (E87.1) Referral Organization [facility] [employer] Referring Provider First Name Jada Referring Provider Last Name [facility] Referring Provider Specialty Family Bee Resilient Ref[facility] Referred Provider Romeo Lara Referred Address [address], [place],[address] Referred Provider Specialty Internal Med icine Referral Priority Routine General Notes Gabrielle Reid 06/2023 01:35:25 PM > referral received and faxed Clinical Notes [facility] [place] Dr. Lara ph [phone], fax [phone] Reason hyponatremia, recent hospitalization [facility] for hyponatremia Diagnosis 1 Hyponatremia (E87.1) Referral Organization [facility] [employer] Referring Provider First Name Jada Referring Provider Last Name [facility] Referring Provider Specialty [facility] Bee Resilient Referred Organization [facility] Referred Address [address] [place], [place],[address] Referred Provider Specialty Nephrology Referral Priority Routine [...] content) DATE CREATED AUTHOR 06/03/2020 [facility] DATE CREATED AUTHOR AUTHOR'S ORGANIZ ATION 05/03/2024 [facility] DATE CREATED AUTHOR AUTHOR'S ORGANIZ ATION 08/17/2024 [facility] DATE CREATED AUTHOR AUTHOR'S ORGANIZ ATION 11/02/2024 [facility] DATE CREATED AUTHOR AUTHOR'S ORGANIZ ATION 11/14/2024 [facility] DATE CREATED AUTHOR AUTHOR'S ORGANIZ ATION 11/24/2024 [facility] DATE CREATED AUTHOR AUTHOR'S ORGANIZ ATION 11/25/2024 [facility] DATE CREATED AUTHOR AUTHOR'S ORGANIZ ATION 11/29/2024 [facility] DATE CREATED AUTHOR AUTHOR'S ORGANIZ ATION 12/21/2024 [facility] DATE CREATED AUTHOR AUTHOR'S ORGANIZ ATION 01/02/2025 [facility] DATE CREATED AUTHOR AUTHOR'S ORGANIZ ATION 01/11/2025 [facility] DATE CREATED AUTHOR AUTHOR'S ORGANIZ ATION 01/27/2025 [facility] DATE CREATED AUTHOR AUTHOR'S ORGANIZ ATION 02/06/2025 [facility] DATE CREATED AUTHOR AUTHOR'S ORGANIZ ATION 02/07/2025 [facility] DATE CREATED AUTHOR AUTHOR'S ORGANIZ ATION 02/22/2025 [facility] DATE CREATED AUTHOR AUTHOR'S ORGANIZ ATION 05/24/2025 [facility] DATE CREATED AUTHOR AUTHOR'S ORGANIZ ATION 06/03/2025 [facility] DATE CREATED AUTHOR AUTHOR'S ORGANIZ ATION 06/08/2025 [facility] DATE CREATED AUTHOR AUTHOR'S ORGANIZ ATION 06/09/2025 [facility] DATE CREATED AUTHOR AUTHOR'S ORGANIZ ATION 06/09/2025 [facility] DATE CREATED AUTHOR AUTHOR'S ORGANIZ ATION 06/14/2025 [facility] DATE CREATED AUTHOR AUTHOR'S ORGANIZ ATION 06/15/2025 [facility] DATE CREATED AUTHOR AUTHOR'S ORGANIZ ATION 07/23/2025 [facility] DATE CREATED AUTHOR AUTHOR'S ORGANIZ ATION 07/27/2025 [facility] DATE CREATED AUTHOR AUTHOR'S ORGANIZ ATION 08/02/2025 [facility] DATE CREATED AUTHOR AUTHOR'S ORGANIZ [...] any alcohol or drug abuse patient.[facility] Patient Care team informatio n (unrecognized section and content) Violin Mechanic Relationship Specialty Start Date End Date Edwin Garcia MD PCP - General Family Medicine 02/03/24 Violin Mechanic Relationship Specialty Start Date End Date Edwin Garcia MD PCP - General Family Medicine 02/03/24 Violin Mechanic Relationship Specialty Start Date End Date Edwin Garcia MD PCP - General Family Medicine 02/03/24 Violin Mechanic Relationship Specialty Start Date End Date Edwin Garcia MD PCP - General Family Medicine 02/03/24 Violin Mechanic Relationship Specialty Start Date End Date Edwin Garcia MD PCP - General Family Medicine 02/03/24 Violin Mechanic Relationship Specialty Start Date End Date Edwin Garcia MD [address] [place] [address] PCP - General Family Medicine 11/26/24 Violin Mechanic Relationship Specialty Start Date End Date Edwin Garcia MD [address] [place] [address] PCP - General Family Medicine 11/26/24 Violin Mechanic Relationship Specialty Start Date End Date Edwin Garcia MD [address] [place] [address] PCP - General Family Medicine 11/26/24 Violin Mechanic Relationship Specialty Start Date End Date Edwin Garcia MD [address] [place] [address] PCP - General Family Medicine 11/26/24 Violin Mechanic Relationship Specialty Start Date End Date Jaden Maravilla APRN - [employer] [address] [place] [address] PCP - General 06/05/25 Violin Mechanic Relationship Specialty Start Date End Date Yanique Mcneill APRN-AVELINA [address] [place] [address] PCP - General Family Medicine 06/13/25 Violin Mechanic Relationship Specialty Start Date End Date Edwin Garcia MD [address] [place] [address] PCP - General Family Medicine 11/26/24 Team Status: Active Member Role Status Dates Yanique Mcneill , [facility] Primary Care Provider Active Team Status: Active Member Role Status Dates Yanique Mcneill [facility] Primary Care Provider Active Start: July [...] for handling/disposal 175 (Given - Provider: Flip uDbose RN) warfarin (COUMADIN) tablet 5 mg 5 [...] (New Bag - Provider: Adia Blandon, RN) 0249 (Stopped - Provider: Monico Kaiser RN) PRN [...] for injection by adding 1 mL of jacquard loom weaver-supplied sterile diluent or sterile water for injection [...] For 1 dose 1625 (Given - Provider: Dbera Huggins RN) levothyroxine (SYNTHROID, LEVOTHROID) tablet 25 [...] Medication Order 06/21/2025 06/22/2025 06/23/2025 heparin infusion [id number] units/500 mL in 0.45% NaCl (50 units/mL [...] BE BASED ON THE PRIMARY CLINICAL RECORDS. [employer] provides no warranty or guarantee of the accuracy or completeness of information in this document.
[2025-08-05] MEDS: SODIUM CHLORIDE 3 % 500 ML 35 ML IV (22:26)
[2025-08-05] MEDS: PIPERACILLIN SODIUM/TAZOBACTAM 3.375 GM in 0.9 % SODIUM CHLORIDE 50 ML IV (22:27)
[2025-08-05] MEDS: METOCLOPRAMIDE HCL 10 MG/2 ML VIAL 5 MG IVP (22:27)
[2025-08-05] MEDS: PANTOPRAZOLE SODIUM 40 MG VIAL IV (22:38)
[2025-08-06] VITALS (88 sets, daily range): BP systolic 92–136; BP diastolic 51–74; PULSE 70–134; TEMP 36.6–37.8; O2SAT 83–100
[2025-08-06] MEDS: ACETAMINOPHEN 325 MG TABLET 650 MG PO (00:31)
[2025-08-06] MEDS: PIPERACILLIN SODIUM/TAZOBACTAM 3.375 GM in 0.9 % SODIUM CHLORIDE 50 ML IV ×3 (05:00→20:26)
[2025-08-06 05:58] LABS: Hematocrit 37.3 % (42.0-54.0); Hemoglobin 13.6 g/dL (14.0-18.0); Immature Granulocytes Abs Auto 0.03 10^3/uL (0.00-0.03); Immature Granulocytes Pct Auto 0.3 % (0.0-0.5); Lymphocytes Absolute Auto 0.6 10^3/uL (1.2-3.8); Mean Corpuscular HGB Conc 36.5 g/dL (29.9-35.2); Mean Corpuscular Hemoglobin 31.6 pg (25.9-34.0); Mean Corpuscular Volume 86.5 fL (80.0-94.0); Platelet Count 203 10^3/uL (150-450); Red Blood Count 4.31 10^6/uL (4.70-6.10); White Blood Count 9.8 10^3/uL (4.0-11.0)
[2025-08-06 06:09] LABS: Glucose Urine UA NEGATIVE (NEGATIVE)
[2025-08-06 06:18] LABS: Alanine Aminotransferase 18 U/L (16-63); Albumin Globulin Ratio 0.9; Albumin Level 3.4 g/dL (3.4-5.0); Alkaline Phosphatase 89 U/L (46-116); Anion Gap 16.1; Aspartate Amino Transferase 26 U/L (15-37); Blood Urea Nitrogen 9.0 mg/dL (7.0-18.0); Calcium 8.8 mg/dL (8.5-10.1); Carbon Dioxide 22.1 mmol/L (21.0-32.0); Chloride 89 mmol/L (98-107); Estimated GFR (African America >60 (>=60 mL/min/1.73m^2); Estimated GFR (Non-African Ame >60 (>=60 mL/min/1.73m^2); Globulin 3.6 g/dL; Glucose 125 mg/dL (74-106); Magnesium 1.4 mg/dL (1.8-2.4); Potassium 4.2 mmol/L (3.5-5.1); Total Protein 7.0 g/dL (6.4-8.2)
[2025-08-06 06:26] LABS: Sodium 123 mmol/L (136-145)
--- NOTE | 2025-08-06 07:00 | US_ITS ---
[place] [id number] Patient Name: INDIANA ZABALA MRN: [id number] date: 1940 Sex: M Assigned Patient Location: [place] Current Patient Location: [place] Accession/Order Number: [id number] Exam Date: 08/06/2025 08:00 Report Date: 08/06/2025 08:33 At the request of: KARTHIK SERRANO MD Procedure: US right upper quadrant LIMITED ABDOMINAL ULTRASOUND: CLINICAL HISTORY: Vomiting, elevated LFT's r/o GB disease COMPARISON: None TECHNIQUE: Grayscale and color Doppler images of the right upper quadrant organs were obtained. FINDINGS: Pancreas: No focal abnormality Liver: No focal abnormality. Gallbladder: No stones or sludge. No wall thickening. Negative Horan sign. CBD: 4 mm RT KIDNEY: 2.2 cm cyst right kidney. No hydronephrosis. US/US right upper quadrant IMPRESSION: NO ACUTE PROCESS. Impression dictated by: Indiana Gooden Jr., D.OShanna 08/06/2025 8:33 AM Dictation Location: [place] [address] Electronically authenticated by: [id number] Y Date: 08/06/2025 08:33
[2025-08-06] MEDS: MAGNESIUM SULFATE IN WATER 4 GM/100 ML PIGGYBACK IV (08:16)
--- NOTE | 2025-08-06 09:00 | CM.NOTE ---
Rounds made with Dr. Hyatt, pt appear lethargic this AM. Slow to respond to questions. PT and OT will evaluate pt for discharge planning.
[2025-08-06] MEDS: GABAPENTIN 300 MG CAPSULE PO (10:12)
[2025-08-06] MEDS: ASPIRIN 81 MG TAB.CHEW PO (10:12)
[2025-08-06] MEDS: SODIUM CHLORIDE 1,000 MG TABLET 2000 MG PO ×2 (13:01→20:27)
--- NOTE | 2025-08-06 13:09 | SWNOTE1 ---
Important Message from Medicare reviewed and discussed with patient's , Leelee. Pt's verbalized understanding and signed the form. Original given to patient's and copy placed in patient?s chart.
--- NOTE | 2025-08-06 13:10 | SWNOTE1 ---
JACQUELYN met with pt's to discuss dc needs. Pt lives at home with and he is familiar to JACQUELYN. Pt was just here last week and was discharged home with [facility] services, PT/OT, skilled nurse, and fellmongery worker. Per the , [facility] did make it in 2x to see pt and they were the ones who recommended he return to ED. SW did ask he has been eating and ambulating at home? She stated he was fine the first day he came home, but has not really been eating. She then told SW he did fall off the couch and she had to help him get up. SW to let nurse know. SW and pt's did talk about assisted living and snf care. SW explained that we will have therapy work with him to see if he needs rehab this time. SW let her know that he has been coming back to hospital quite a few times recently. SW advised that it may be beneficial for pt to go to Assisted Living or snf care so he can monitored more closely. She did voice understanding. JACQUELYN spoke with her about finances. SW never did get a direct answer to pt's financial situation. She voiced they both get social security monthly. Each a little over $2,000. She did voiced that they did a Living Will and all his money will go to his son. She explained that this is both his and hers second marriage. She stated she is going to call the sawsmith and speak with him. SW did talk to her about Medicaid as well. Pt's does think she will be able to come up with enough money to cover at least the first 30 days for snf or assisted living. Pt's is not sure the pt will agree with this and voiced he just wants to be home. SW did let her know that we will talk to him about it once he comes around a little more. JACQUELYN in agreement. Pt's is not opposed to pt going to assisted living or snf, but she does not feel pt will agree. JACQUELYN to update nurse.
--- NOTE | 2025-08-06 14:29 | PM.HP ---
HPI H&P: HPI History of Present Illness Chief complaint: ALTERED MENTAL STATUS, AMS, HX DEMENTIA, HARD OF H Narrative: Mr. Aguilera is an 85-year-old gentleman who is well-known to me from recent admission. I admitted him last week with the hyponatremia. I corrected his sodium level and discharged him home after patient he and his declined to go to a nursing facility. I discharge him on sodium chloride tablet with follow-up BMP to be drawn by home health care nurse and sodium level is to be managed in the outpatient setting by PCP. As per report, the patient started to decline yesterday. He became more lethargic and was not able to engage. As per report, the left him in bed for about 18 hours not seeking help or EMS activation Home health care nurse came the next day and found patient barely responsive. Patient was brought to the emergency room urgently where he was found to have sodium level of 118. No fever or chills. No seizure or convulsion. CAT scan of the brain was negative. As per report the patient vomited in the emergency room department but I was not notified about it. I admitted patient to the telemetry stepdown unit. Last evening patient vomited prompting the decision to insert NG tube. Opioid HPI Opioid Management Most Recent Pain and Opioid Data: Last Pain Scale 0 08/02/25, 10:42 Last Pain Intensity 0 08/02/25, 10:42 Last Pain Assessment 08/05/25, 19:00 Last MAR Pain Assessment Today, 00:31 Last ORT Total Score 0 08/05/25, 18:09 Last ORT Risk Category Low Risk 08/05/25, 18:09 Ur Phencyclidine Scrn, (NEGATIVE) Negative 08/21/23, 03:22 [facility] Medical History (Updated 08/06/25 @ 00:00 by ) Diverticulitis ?K57.92 - Diverticulitis of intestine, part unspecified, without perforation or abscess without bleeding (ICD-10) Hyponatremia ?E87.1 - Hypo-osmolality and hyponatremia (ICD-10) Paroxysmal atrial fibrillation ?I48.0 - Paroxysmal atrial fibrillation (ICD-10) Syncope ?R55 - Syncope and collapse (ICD-10) Abrasion of scalp ?S00.01XA - Abrasion of scalp, initial encounter (ICD-10) Closed head injury ?S09.90XA - Unspecified injury of head, initial encounter (ICD-10) Laceration of scalp ?S01.01XA - Laceration without foreign body of scalp, initial encounter (ICD-10) Low back pain ?M54.50 - Low back pain, unspecified (ICD-10) Lumbar spondylosis ?M47.816 - Spondylosis without myelopathy or radiculopathy, lumbar region (ICD-10) Thoracic back pain ?M54.6 - Pain in thoracic spine (ICD-10) 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 - Other specified mononeuropathies (ICD-10) Paresthesias in right hand ?R20.2 - Paresthesia of skin (ICD-10) Foreign body in right ear ?T16.1XXA - Foreign body in right ear, initial encounter (ICD-10) Hyponatremia ?E87.1 - Hypo-osmolality and hyponatremia (ICD-10) Hypomagnesemia ?E83.42 - Hypomagnesemia (ICD-10) RADHA (acute kidney injury) ?N17.9 - Acute kidney failure, unspecified (ICD-10) Influenza ?J11.1 - Influenza due to unidentified influenza virus with other respiratory manifestations (ICD-10) Hypomagnesemia ?E83.42 - Hypomagnesemia (ICD-10) Acute hyponatremia ?E87.1 - Hypo-osmolality and hyponatremia (ICD-10) Acute confusion ?R41.0 - Disorientation, unspecified (ICD-10) Diabetes ?E11.9 - Type 2 diabetes mellitus without complications (ICD-10) High cholesterol ?E78.00 - Pure hypercholesterolemia, unspecified (ICD-10) Surgical History Hx of carpal tunnel repair ?Z98.890 - Other specified postprocedural states (ICD-10) Family History Father Family history of myocardial infarction Family history of hypertension Mother Family history of cancer Family history of diabetes mellitus Social History (Updated 06/12/25 @ 22:04 by Edda Yap RN) Within the past year, how often did you have a drink containing alcohol: 2-4 times a month Smoking status: Never smoker Second hand tobacco smoke exposure: No Non-prescribed substance use: denies use Known occupational exposures/hazards: No Highest level of school completed/degree received: high school graduate Are you now , , , , never or living with a partner: Little interest or pleasure in doing things: not at all Feeling down, depressed, or hopeless: not at all Feel stressed/tense/nervous/anxious/difficulty sleeping: not at all Gender Identity: male Gender Identity Comment: Unable to assess due to AMS, Expressive aphasia. Meds Home Medications and Allergies Home Medications ?Medication ?Instructions ?Recorded ?Confirmed ?Type levothyroxine 25 mcg tablet 25 mcg PO QAM 08/21/23 08/05/25 History pravastatin 40 mg tablet 40 mg PO DAILY 08/21/23 08/05/25 History tamsulosin 0.4 mg capsule 0.4 mg PO DAILY 08/21/23 08/05/25 History finasteride 5 mg tablet 5 mg PO DAILY 11/13/23 08/05/25 History gabapentin 300 mg capsule 300 mg PO DAILY 08/13/24 08/05/25 History aspirin 81 mg tablet,delayed 81 mg PO QD 5 days #5 tabs 06/13/25 08/05/25 Rx release atenolol 25 mg tablet 12.5 mg PO DAILY 06/13/25 08/05/25 History apixaban 5 mg tablet (Eliquis) 5 mg PO Q12H 07/19/25 08/05/25 History omeprazole 40 mg capsule,delayed 40 mg PO DAILY 07/30/25 08/05/25 History release meloxicam 7.5 mg tablet 7.5 mg PO DAILY PRN Pain #0 tabs 08/02/25 08/05/25 Rx sitagliptin phosphate 100 mg 100 mg PO DAILY #30 tabs 08/02/25 08/05/25 Rx tablet (Januvia) sodium chloride 1,000 mg soluble 1,000 mg PO TID #0 tabs 08/02/25 08/05/25 Rx tablet Allergies Allergy/AdvReac Type Severity Reaction Status Date / Time No Known Drug Allergies Allergy Verified 07/30/25 07:12 Exam Narrative Exam Narrative: Patient started to wake up and become responsive as compared to last evening. Cachectic and frail in appearance. Pale and dry skin and buccal mucosa. Bitemporal muscle wasting. Upper and lower extremities muscle wasting and atrophy. Neck is supple. Chest exam reveals soft crackles. Heart is irregular. Abdomen is soft. Lower extremities no edema Constitutional Vital Signs, click to edit/add: Last Vital Signs Temp 98.1 F 08/06/25 11:19 Pulse 87 08/06/25 14:03 Resp 25 H 08/06/25 14:03 BP 92/51 08/06/25 14:03 Pulse Ox 97 08/06/25 14:03 O2 Del Method Room Air 08/06/25 11:19 O2 Flow Rate 96 08/06/25 11:19 Results Labs Labs: Short CBC 08/05/25 08/06/25 Range/Units 14:43 05:40 WBC 8.3 9.8 (4.0-11.0) 10^3/uL Hgb 13.2 L 13.6 L (14.0-18.0) g/dL Hct 35.8 L 37.3 L (42.0-54.0) % Plt Count 226 203 (150-450) 10^3/uL BMP 08/05/25 08/05/25 08/06/25 14:43 21:00 05:40 Sodium 119 L* 118 L* 123 L* Potassium 4.3 4.1 4.2 Chloride 87 L 87 L 89 L Carbon Dioxide 25.3 20.4 L 22.1 BUN 8.0 10.0 9.0 Creatinine 0.73 0.68 L 0.72 Glucose 100 129 H 125 H Calcium 8.6 8.5 8.8 Liver Function 08/05/25 08/06/25 Range/Units 14:43 05:40 Total Bilirubin 1.7 H 1.6 H (0.2-1.0) mg/dL AST 22 26 (15-37) U/L ALT 7 L 18 (16-63) U/L Alkaline Phosphatase 97 89 (46-116) U/L Albumin 3.6 3.4 (3.4-5.0) g/dL Urine 08/06/25 Range/Units 05:50 Urine Color Lt. yellow (YELLOW) Urine Clarity Clear (CLEAR) Urine pH 5.5 (5.0-9.0) Ur Specific [place] 1.020 (1.005-1.025) Urine Protein Negative (NEG/TRACE) mg/dL Urine Glucose (UA) Negative (NEGATIVE) mg/dL Assessment and Plan Assessment and Plan (1) Hyponatremia: (2) AMS (altered mental status): (3) Atrial fibrillation: (4) Type 2 diabetes mellitus with hyperglycemia: (5) Adult hypothyroidism: (6) Cachexia: (7) Hearing loss: (8) Encephalopathy: (9) Dehydration: Plan Hyponatremia This is recurrent problem dated back to 2022. I discharged the patient on sodium chloride tablet and he has also urea as reported by his . I am not sure if patient was taking his medication as instructed. Last admission his cortisol level was 9 ruling out adrenal insufficiency as a cause of his hyponatremia. TSH was normal ruling out undertreated hypothyroidism as a cause of his hyponatremia. 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 Recent MRI of the brain does not show any brain tumor or metastasis to have caused SIADH. I started patient on 3% sodium. Sodium level is climbing up. Repeat BMP every 8 hours. Altered mental status, encephalopathy, likely metabolic encephalopathy secondary to hyponatremia. Patient started waking up as his sodium level is been corrected. CT head is negative for acute intracranial process. Vomiting. NG tube was inserted. Requested KUB to rule out ileus or obstruction Slight elevation of the bilirubin. Requested ultrasound rule out chronic or acute cholecystitis. Hypoxic respiratory failure after he vomited. Suspect aspiration. I started the patient on Zosyn. Chest x-ray does not show any infiltration but could be related to show. Repeat chest x-ray in 24 to 48 hours. Continue antibiotic. Cachexia, frailty, failure to thrive, moderate protein calorie malnutrition, muscle wasting Resume oral protein supplementation when patient is awake enough to be able to drink Cachexia and weight loss investigation would need to take place. Could take place in the outpatient setting by PCP Diabetes. Sliding scale coverage. Resume Januvia when the patient is able to swallow. BPH Continue Flomax and Proscar when patient is able to swallow. Urinary retention more than 700 mL at night. Dowd catheter was inserted. Chronic A-fib. It is controlled. Convert to oral beta-dimitris to IV due to inability to swallow Convert Eliquis to Lovenox for the same reason Cognitive and functional impairment. Chronic and progressive. Not sure if patient is safe at home. Last admission I recommended for patient to go to SNF, may be long-term retirement residential living. He adamantly refused. His is supportive to him. Not sure if is cognitively able to to take care of him at home and provide him the meds that he needs. We will consult social services designee. Likely patient would end up going to skilled care at least for short period of time. Likely he may need a long-term residential retirement living. Chronic medical conditions not listed above, incidental findings seen on labs and imaging. These would need to be addressed. Could be addressed when time and condition are appropriate. Could be addressed in the outpatient setting by PCP collaboration with other needed outpatient providers. Patient status is a dynamic and evolutionary therefore the aforementioned assessment and plan may or may not be complete or conclusive. The patient would likely require to have additional workup, investigation and therapeutic intervention that will be determined based on the clinical progression and follow-up test result. CODE STATUS, based on my conversation with his last admission he is CCA. Consideration to switch him to CC. Spent about 45 minutes in the critical care evaluation, assessment and treatment of this patient thus far Urinary Catheter Management Urinary Catheter Management Urethral: Cath placed during this visit: no
[2025-08-06] MEDS: ENOXAPARIN SODIUM 80 MG/0.8 ML SYRINGE 70 MG SUBQ (15:20)
[2025-08-06] MEDS: PANTOPRAZOLE SODIUM 40 MG VIAL IV (15:20)
[2025-08-06] MEDS: METOPROLOL TARTRATE 5 MG/5 ML VIAL 2.5 MG IVP ×3 (15:22→23:37)
[2025-08-06 15:45] LABS: Anion Gap 13.2; Blood Urea Nitrogen 10.0 mg/dL (7.0-18.0); Calcium 8.3 mg/dL (8.5-10.1); Carbon Dioxide 23.0 mmol/L (21.0-32.0); Chloride 94 mmol/L (98-107); Estimated GFR (African America >60 (>=60 mL/min/1.73m^2); Estimated GFR (Non-African Ame >60 (>=60 mL/min/1.73m^2); Glucose 136 mg/dL (74-106); Potassium 4.2 mmol/L (3.5-5.1); Sodium 126 mmol/L (136-145)
[2025-08-06] MEDS: SODIUM CHLORIDE 3 % 500 ML 25 ML IV (17:18)
[2025-08-06] MEDS: ATORVASTATIN CALCIUM 10 MG TABLET PO (20:27)
[2025-08-06 22:24] LABS: Anion Gap 10.8; Blood Urea Nitrogen 13.0 mg/dL (7.0-18.0); Calcium 8.0 mg/dL (8.5-10.1); Carbon Dioxide 23.1 mmol/L (21.0-32.0); Chloride 98 mmol/L (98-107); Estimated GFR (African America >60 (>=60 mL/min/1.73m^2); Estimated GFR (Non-African Ame >60 (>=60 mL/min/1.73m^2); Glucose 128 mg/dL (74-106); Potassium 3.9 mmol/L (3.5-5.1); Sodium 128 mmol/L (136-145)
[2025-08-07] VITALS (73 sets, daily range): BP systolic 90–141; BP diastolic 45–89; PULSE 67–113; TEMP 36.6–37.4; O2SAT 89–99
[2025-08-07] MEDS: ENOXAPARIN SODIUM 80 MG/0.8 ML SYRINGE 70 MG SUBQ (03:46)
[2025-08-07] MEDS: ACETAMINOPHEN 325 MG TABLET 650 MG PO ×2 (03:47→20:32)
[2025-08-07] MEDS: PIPERACILLIN SODIUM/TAZOBACTAM 3.375 GM in 0.9 % SODIUM CHLORIDE 50 ML IV ×3 (04:01→20:56)
[2025-08-07] MEDS: LEVOTHYROXINE SODIUM 25 MCG TABLET PO (05:33)
[2025-08-07] MEDS: SODIUM CHLORIDE 1,000 MG TABLET 2000 MG PO ×3 (05:33→20:34)
[2025-08-07 05:35] LABS: Hematocrit 31.0 % (42.0-54.0); Hemoglobin 11.4 g/dL (14.0-18.0); Mean Corpuscular HGB Conc 36.8 g/dL (29.9-35.2); Mean Corpuscular Hemoglobin 32.1 pg (25.9-34.0); Mean Corpuscular Volume 87.3 fL (80.0-94.0); Platelet Count 188 10^3/uL (150-450); Red Blood Count 3.55 10^6/uL (4.70-6.10); White Blood Count 8.0 10^3/uL (4.0-11.0)
[2025-08-07 05:54] LABS: Alanine Aminotransferase 16 U/L (16-63); Albumin Globulin Ratio 0.8; Albumin Level 2.4 g/dL (3.4-5.0); Alkaline Phosphatase 71 U/L (46-116); Aspartate Amino Transferase 16 U/L (15-37); Globulin 2.9 g/dL; Magnesium 1.8 mg/dL (1.8-2.4); Total Protein 5.3 g/dL (6.4-8.2)
[2025-08-07 05:55] LABS: Anion Gap 12.2; Carbon Dioxide 21.4 mmol/L (21.0-32.0); Chloride 103 mmol/L (98-107); Potassium 3.6 mmol/L (3.5-5.1); Sodium 133 mmol/L (136-145)
[2025-08-07 05:56] LABS: Blood Urea Nitrogen 14.0 mg/dL (7.0-18.0); Calcium 7.6 mg/dL (8.5-10.1); Estimated GFR (African America >60 (>=60 mL/min/1.73m^2); Estimated GFR (Non-African Ame >60 (>=60 mL/min/1.73m^2); Glucose 123 mg/dL (74-106)
--- NOTE | 2025-08-07 06:41 | XR_ITS ---
The [address] [address] Patient Name: INDIANA ZABALA MRN: [id number] date: 1940 Sex: M Assigned Patient Location: [place] Current Patient Location: [place] Accession/Order Number: [id number] Exam Date: 08/07/2025 07:38 Report Date: 08/07/2025 09:48 At the request of: KARTHIK SERRANO MD Procedure: XR abdomen 1V KUB: CLINICAL INFORMATION: Vomiting. COMPARISON: CT 07/19/2025 FINDINGS: No bowel obstruction or free air. Phleboliths are seen within the pelvis. Osseous structures demonstrate degenerative change. XR/XR abdomen 1V IMPRESSION: No acute process. Impression dictated by: Indiana Goodne Jr., D.O. 08/07/2025 9:48 AM Dictation Location: [place] [address] Electronically authenticated by: [id number] Y Date: 08/07/2025 09:48
--- NOTE | 2025-08-07 06:41 | XR_ITS ---
[address] [address] Patient Name: INDIANA ZABALA MRN: [id number] date: 1940 Sex: M Assigned Patient Location: [place] Current Patient Location: [place] Accession/Order Number: [id number] Exam Date: 08/07/2025 07:38 Report Date: 08/07/2025 09:16 At the request of: KARTHIK SERRANO MD Procedure: XR chest 1V Single view chest: CLINICAL HISTORY: Follow up possible aspiration COMPARISON: chest 08/05/2025 FINDINGS: NG tube has been removed. Heart appears normal in size. Left basilar atelectasis. No pneumothorax, large pleural effusion or free air. XR/XR chest 1V IMPRESSION: NG TUBE HAS BEEN REMOVED. LEFT BASILAR ATELECTASIS. Impression dictated by: Indiana Gooden Jr., D.O. 08/07/2025 9:16 AM Dictation Location: [place] [address] Electronically authenticated by: [id number] Y Date: 08/07/2025 09:16
[2025-08-07] MEDS: SOD PHOSPHATE,MONOBASIC-DIBAS 30 MMOL in 0.9 % SODIUM CHLORIDE 250 ML 43.333 MMOL IV (07:45)
[2025-08-07] MEDS: FINASTERIDE 5 MG TABLET PO (08:17)
[2025-08-07] MEDS: ATENOLOL 25 MG TABLET 12.5 MG PO (08:17)
[2025-08-07] MEDS: TAMSULOSIN HCL 0.4 MG CAPSULE PO (08:17)
[2025-08-07] MEDS: ASPIRIN 81 MG TAB.CHEW PO (08:17)
[2025-08-07] MEDS: APIXABAN 5 MG TABLET PO ×2 (08:17→20:34)
[2025-08-07] MEDS: GABAPENTIN 300 MG CAPSULE PO (08:17)
--- NOTE | 2025-08-07 09:05 | SWNOTE1 ---
SW reviewed PT note and at this time SNF is recommended. SW to speak with pt and in regards to recommendation.
--- NOTE | 2025-08-07 09:30 | CM.NOTE ---
Rounded with . The plan is for discharge to a skilled facility in 1-2 days.
--- NOTE | 2025-08-07 10:15 | P.PN_ITS ---
Progress Note: Subjective Subjective Interval history: Patient is more awake today. Continues to be somewhat disoriented as to what happened to him. Blood pressure is stable. No vomiting. Exam Narrative Exam Narrative: Patient is definitely more awake than yesterday. Cachectic and frail in appearance. Pale and dry skin and buccal mucosa. Bitemporal muscle wasting. Upper and lower extremities muscle wasting and atrophy. Neck is supple. Chest exam reveals soft crackles. Heart is irregular. Abdomen is soft. Lower extremities no edema Constitutional Vital Signs, click to edit/add: Last Vital Signs Temp 98.4 F 08/08/25 08:00 Pulse 75 08/08/25 09:59 Resp 16 08/08/25 08:00 BP 136/70 08/08/25 08:00 Pulse Ox 97 08/08/25 08:00 O2 Del Method Room Air 08/08/25 08:00 O2 Flow Rate 96 08/06/25 11:19 Progress Note: Objective Labs Labs: BMP 08/07/25 08/08/25 18:03 05:37 Sodium 132 L 135 L Potassium 4.2 3.5 Chloride 99 101 Carbon Dioxide 26.9 25.7 BUN 18.0 14.0 Creatinine 0.82 0.60 L Glucose 154 H 142 H Calcium 8.3 L 8.6 Progress Note: A&P Assessment and Plan (1) Hyponatremia: (2) AMS (altered mental status): (3) Atrial fibrillation: (4) Type 2 diabetes mellitus with hyperglycemia: (5) Adult hypothyroidism: (6) Cachexia: (7) Hearing loss: (8) Encephalopathy: (9) Dehydration: Plan Hyponatremia This is recurrent problem dated back to 2022. I discharged the patient on sodium chloride tablet and he has also urea as reported by his . I am not sure if patient was taking his medication as instructed. Last admission his cortisol level was 9 ruling out adrenal insufficiency as a cause of his hyponatremia. TSH was normal ruling out undertreated hypothyroidism as a cause of his hyponatremia. 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 Recent MRI of the brain does not show any brain tumor or metastasis to have caused SIADH. I started patient on 3% sodium. Sodium level is climbing up. Repeat BMP every 8 hours. Sodium level is improving. Discontinue 3% sodium milligram. Altered mental status, encephalopathy, likely metabolic encephalopathy secondary to hyponatremia. Patient started waking up as his sodium level is been corrected. CT head is negative for acute intracranial process. Vomiting. NG tube was inserted. Requested KUB to rule out ileus or obstruction. No dilatation. Slight elevation of the bilirubin. Requested ultrasound rule out chronic or acute cholecystitis. Ultrasound is negative for acute cholecystitis. NG tube is removed. No further vomiting. Start him on liquid diet. Hypoxic respiratory failure after he vomited. Suspect aspiration. I started the patient on Zosyn. Chest x-ray does not show any infiltration but could be related to show. Repeat chest x-ray in 24 to 48 hours. Continue antibiotic. Cachexia, frailty, failure to thrive, moderate protein calorie malnutrition, muscle wasting Resume oral protein supplementation when patient is awake enough to be able to drink Cachexia and weight loss investigation would need to take place. Could take place in the outpatient setting by PCP Diabetes. Sliding scale coverage. Resume Januvia when the patient is able to swallow. BPH Continue Flomax and Proscar when patient is able to swallow. Urinary retention more than 700 mL at night. Dowd catheter was inserted. Chronic A-fib. It is controlled. Convert to oral beta-dimitris to IV due to inability to swallow Convert Lovenox back to Eliquis she is able to take p.o. Cognitive and functional impairment. Chronic and progressive. Not sure if patient is safe at home. Last admission I recommended for patient to go to SNF, may be long-term senior care residential living. He adamantly refused. His is supportive to him. Not sure if is cognitively able to to take care of him at home and provide him the meds that he needs. We will consult mental health social worker. Likely patient would end up going to skilled care at least for short period of time. Likely he may need a long-term residential senior care living. Chronic medical conditions not listed above, incidental findings seen on labs and imaging. These would need to be addressed. Could be addressed when time and condition are appropriate. Could be addressed in the outpatient setting by PCP collaboration with other needed outpatient providers. Patient status is a dynamic and evolutionary therefore the aforementioned assessment and plan may or may not be complete or conclusive. The patient would likely require to have additional workup, investigation and therapeutic intervention that will be determined based on the clinical progression and follow-up test result. CODE STATUS, based on my conversation with his last admission he is CCA. Consideration to switch him to CC. Urinary Catheter Management Urinary Catheter Management Urethral: Cath placed during this visit: no
--- NOTE | 2025-08-07 11:56 | PT.DAILY ---
Physical Therapy Daily Note PT Daily Note/Assess Start: 08/07/25 11:46 Freq: Status: Active Protocol: Document 08/07/25 11:47 [id number] (Rec: 08/07/25 11:56 [id number] No Response) Physical Therapy Daily Note/Assessment Time In/Time Out Time In 11:35 Time Out 11:45 Pain In Pain Level 0 Pain Out Pain Level 0 Subjective Subjective Patient received seated in chair bedside. Chair alarm engaged, disengaged for PT treatment. Patient opens eyes and is able to identify himself only, somnolent. Patient is agreeable to participate with PT. Therapeutic Exercise Time Therapeutic Exercise 10 Minutes (minutes) Therapeutic Exercise 1 Units Therapeutic Exercise Treatment Therapeutic Exercise Long seated position in chair at bedside for ther ex. Treatment AAROM to PROM to MAU LE to promote strengthening for ADL's and gait. MAU ankle pumps, heel slides, hip ABD, hip flexion 10 x reps. Seated LAQ is MAX +1 for 10 reps. Patient is able to lean forward to assist with repositioning in chair. Assisted nursing in repositioning patient up in chair due to sliding downward. Patient legs elevated, CBWR, all need met and chair alarm reengaged. Nursing notified and acknowledged information. Total Physical Therapy Time Total Therapy 10 Minutes Total Physical 1 Therapy Units Summary Daily Note Summary Patient somnolent throughout majority of treatment. Does assist with counting repetitions for MAU LE ther ex several times. Ambulation not attempted due to somnolence of patient and safety. Patient would benefit from SNF to address functional deficits in order to return to PLOF.
--- NOTE | 2025-08-07 13:08 | SWNOTE1 ---
SW checked pt's room 2x, but was not present. SW called and left Leelee, pt's , a message. SW calling to speak with her about SNF.
--- NOTE | 2025-08-07 14:01 | SWNOTE1 ---
SW stopped in to speak with pt's . JACQUELYN explained it is recommended that pt go skilled to nursing facility for a short time to get stronger. Pt's asked where that would be, JACQUELYN explained it could be anywhere. Pt's voiced he has been at [facility] in past and so has she. JACQUELYN explained that this is only short term and SW reminded her that we did talk about [facility] or assisted living at some point as well. Pt's in agreement with rehab and stated that would be great. SW to send referral to [facility], this is where the wants him to go. SW to talk to pt about rehab tomorrow. He is working with speech therapy at this time. Referral sent to [facility]. Referral included face sheet, ED note, H&P, provider notes, case management report, nursing notes, diagnostic imaging, med list, and PT/OT notes.
--- NOTE | 2025-08-07 15:24 | SWNOTE1 ---
JACQUELYN received a call from Eileen at the [facility] and they can accept pt. JACQUELYN reaching out to physician to see if precert should be started.
--- NOTE | 2025-08-07 16:16 | SWNOTE1 ---
JACQUELYN did email Eileen at [facility] and had her start precert for rehab.
[2025-08-07 18:29] LABS: Anion Gap 10.3; Blood Urea Nitrogen 18.0 mg/dL (7.0-18.0); Calcium 8.3 mg/dL (8.5-10.1); Carbon Dioxide 26.9 mmol/L (21.0-32.0); Chloride 99 mmol/L (98-107); Estimated GFR (African America >60 (>=60 mL/min/1.73m^2); Estimated GFR (Non-African Ame >60 (>=60 mL/min/1.73m^2); Glucose 154 mg/dL (74-106); Sodium 132 mmol/L (136-145)
[2025-08-07 18:34] LABS: Potassium 4.2 mmol/L (3.5-5.1)
[2025-08-07] MEDS: ATORVASTATIN CALCIUM 10 MG TABLET PO (20:34)
[2025-08-07] MEDS: ENSURE HP 237 ML LIQUID PO (20:35)
[2025-08-08] VITALS (17 sets, daily range): BP systolic 91–150; BP diastolic 47–82; PULSE 72–117; TEMP 36.4–36.9; O2SAT 94–97
[2025-08-08] MEDS: PIPERACILLIN SODIUM/TAZOBACTAM 3.375 GM in 0.9 % SODIUM CHLORIDE 50 ML IV ×3 (04:49→20:58)
[2025-08-08] MEDS: SODIUM CHLORIDE 1,000 MG TABLET 2000 MG PO ×3 (05:05→22:08)
[2025-08-08] MEDS: LEVOTHYROXINE SODIUM 25 MCG TABLET PO (05:41)
[2025-08-08] MEDS: PANTOPRAZOLE SODIUM 40 MG TABLET.DR PO (05:41)
[2025-08-08 06:10] LABS: Anion Gap 11.8; Blood Urea Nitrogen 14.0 mg/dL (7.0-18.0); Calcium 8.6 mg/dL (8.5-10.1); Carbon Dioxide 25.7 mmol/L (21.0-32.0); Chloride 101 mmol/L (98-107); Estimated GFR (African America >60 (>=60 mL/min/1.73m^2); Estimated GFR (Non-African Ame >60 (>=60 mL/min/1.73m^2); Glucose 142 mg/dL (74-106); Magnesium 1.6 mg/dL (1.8-2.4); Potassium 3.5 mmol/L (3.5-5.1); Sodium 135 mmol/L (136-145)
[2025-08-08] MEDS: TAMSULOSIN HCL 0.4 MG CAPSULE PO (08:09)
[2025-08-08] MEDS: ATENOLOL 25 MG TABLET 12.5 MG PO (08:09)
[2025-08-08] MEDS: ENSURE HP 237 ML LIQUID PO ×2 (08:09→22:08)
[2025-08-08] MEDS: FINASTERIDE 5 MG TABLET PO (08:09)
[2025-08-08] MEDS: APIXABAN 5 MG TABLET PO ×2 (08:09→22:08)
[2025-08-08] MEDS: ASPIRIN 81 MG TAB.CHEW PO (08:09)
[2025-08-08] MEDS: GABAPENTIN 300 MG CAPSULE PO (08:09)
[2025-08-08] MEDS: POTASSIUM PHOS,M-BASIC-D-BASIC 30 MMOL in 0.9 % SODIUM CHLORIDE 250 ML 43.333 MMOL IV (08:46)
--- NOTE | 2025-08-08 09:40 | CM.NOTE ---
Rounds made with Dr. Hyatt, pt more awake today. PT and OT will continue to work with pt for strengthening. No discharge today. Pt will discharge to skilled when medically cleared.
--- NOTE | 2025-08-08 10:19 | PM.PN ---
Progress Note: Subjective Subjective Interval history: Uneventful night. Patient is more awake. Back to baseline. Able to answer questions. Able to engage in simple conversation. Moving all of his extremities. Exam Narrative Exam Narrative: Patient is sitting in bed. Able to answer questions. Able to follow command. Chest exam reveals fine crackles. Heart is irregular. Abdomen soft, nontender. Lower extremities no edema. Constitutional Vital Signs, click to edit/add: Last Vital Signs Temp 98.4 F 08/08/25 08:00 Pulse 75 08/08/25 09:59 Resp 16 08/08/25 08:00 BP 136/70 08/08/25 08:00 Pulse Ox 97 08/08/25 08:00 O2 Del Method Room Air 08/08/25 08:00 O2 Flow Rate 96 08/06/25 11:19 Progress Note: Objective Labs Labs: BMP 08/07/25 08/08/25 18:03 05:37 Sodium 132 L 135 L Potassium 4.2 3.5 Chloride 99 101 Carbon Dioxide 26.9 25.7 BUN 18.0 14.0 Creatinine 0.82 0.60 L Glucose 154 H 142 H Calcium 8.3 L 8.6 Progress Note: A&P Assessment and Plan (1) Hyponatremia: (2) AMS (altered mental status): (3) Atrial fibrillation: (4) Type 2 diabetes mellitus with hyperglycemia: (5) Adult hypothyroidism: (6) Cachexia: (7) Hearing loss: (8) Encephalopathy: (9) Dehydration: Plan Hyponatremia This is recurrent problem dated back to 2022. I discharged the patient on sodium chloride tablet and he has also urea as reported by his . I am not sure if patient was taking his medication as instructed. Last admission his cortisol level was 9 ruling out adrenal insufficiency as a cause of his hyponatremia. TSH was normal ruling out undertreated hypothyroidism as a cause of his hyponatremia. 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 Recent MRI of the brain does not show any brain tumor or metastasis to have caused SIADH. I started patient on 3% sodium. Sodium level is climbing up. Repeat BMP every 8 hours. Sodium level is back to normal. Continue sodium chloride tablet. Adjust accordingly. Sodium stays normal while taking sodium chloride tablet here in the hospital suggestive that may not be giving him sodium chloride tablet at home. Sodium dropped down to 118 within 1 week after discharge. Altered mental status, encephalopathy, likely metabolic encephalopathy secondary to hyponatremia. Patient started waking up as his sodium level is been corrected. CT head is negative for acute intracranial process. Vomiting. Resolved, NG tube is out until patient is tolerating food. Hypoxic respiratory failure after he vomited. Suspect aspiration. Repeat chest x-ray showed basilar atelectasis, probable infiltration. Continue Zosyn for now. Cachexia, frailty, failure to thrive, moderate protein calorie malnutrition, muscle wasting Continue oral protein supplementation. Cachexia and weight loss investigation would need to take place. Could take place in the outpatient setting by PCP Diabetes. Sliding scale coverage. Resume Januvia when the patient is able to swallow. BPH Continue Flomax and Proscar when patient is able to swallow. Urinary retention more than 700 mL at night. Dowd catheter was inserted. Trial of Dowd removal and postvoid bladder scan. Chronic A-fib. It is controlled. Convert to oral beta-dimitris to IV due to inability to swallow Continue Eliquis and small dose beta-dimitris at this time. Cognitive and functional impairment. Chronic and progressive. Not sure if patient is safe at home. Last admission I recommended for patient to go to SNF, may be long-term [facility]. He adamantly refused. His is supportive to him. Not sure if is cognitively able to to take care of him at home and provide him the meds that he needs. We will consult social professionals. Likely patient would end up going to skilled care at least for short period of time. Likely he may need a long-term residential [facility] living. Chronic medical conditions not listed above, incidental findings seen on labs and imaging. These would need to be addressed. Could be addressed when time and condition are appropriate. Could be addressed in the outpatient setting by PCP collaboration with other needed outpatient providers. CODE STATUS, based on my conversation with his last admission he is CCA. Consideration to switch him to CC. Urinary Catheter Management Urinary Catheter Management Urethral: Cath placed during this visit: no
--- NOTE | 2025-08-08 12:43 | PT.DAILY ---
Physical Therapy Daily Note PT Daily Note/Assess Start: 08/07/25 11:46 Freq: Status: Active Protocol: Document 08/08/25 12:17 [id number] (Rec: 08/08/25 12:43 [id number] No Response) Physical Therapy Daily Note/Assessment Time In/Time Out Time In 10:59 Time Out 11:24 Pain In Pain Level 0 Pain Out Pain Level 0 Subjective Subjective Patient received supine in bed working w/ OT. Patient agreeable to participate w/ PT. Patient alert and oriented to self and date. present during treatment. Therapeutic Exercise Time Therapeutic Exercise 4 Minutes (minutes) Therapeutic Exercise 0 Units Therapeutic Exercise Treatment Therapeutic Exercise Patient perform supine MAU LE ther ex for strengthening Treatment to improve walking and ADL's. MAU ankle pumps, SLR and hip ABD with AAROM x 10 reps. Patient demonstrates difficulty following instructions for ther ex. Therapeutic Activity Time Therapeutic Activity 21 Minutes (minutes) Therapeutic Activity 1 Units Therapeutic Activity Treatment Bed Mobility Ability Minimum Assist,Moderate Assist,2 Person Assist Chair Transfer Minimum Assist,2 Person Assist Ability Therapeutic Activity Supine to R side sitting with heavy verbal and tactile Comments cues with MIN to MOD A +2. Patient with posterior lean , unable to correct with verbal and tactile cues. Patient repositioned by scooting closer to EOB and frequent tactile cue to mid back. Patient with L lateral lean, able to correct with tactile cues. Patient sat EOB to ankit socks. Able to ankit R sock, MAX assist by Stephanie Gardner PTA to ankit L sock. Sit to stand to 2WW is MIN to MOD A+2. Verbal cues for L hand placement on bed to push up into standing. Patient postures with L lateral lean in standing. Unable to correct with cueing. Patient ambulated ~50 ft with 2WW with MIN to MOD A +1-2. Walker management is MIN to MOD A +1, patient demonstrates decreased ability to turn walker when turning and lists to the L when walking FWD. Patient walked to the bathroom on return to room to participate with OT for brushing teeth. Patient stood at bathroom sink with MIN to MOD A +1. Patient demonstrates to L side posterior lean without support. When L elbow touches wall or L hand is placed on sink counter patient is able to manage his balance without A. Patient navigates L turn in small space with MIN assist for balance and MOD A for walker management . Patient ambulated to chair with 2WW and MIN A for balance. Patient seated in chair with vc's for R hand placement and MIN A +1 to control descent to chair. Patient left in care of speech therapist. Chair alarm engaged. Total Physical Therapy Time Total Therapy 25 Minutes Total Physical 1 Therapy Units Summary Daily Note Summary Patient cognitively more alert this date. Able to participate with PT, demonstrates functional deficits. Patient demonstrates L lateral lean when ambulating requiring MIN to MOD A. Patient able to stand at sink for ADL's, requires MIN to MOD A when patient does not have a point of contact with L elbow/hand. Patient would benefit from SNF to address functional deficits during sitting, standing, walking to allow return to PLOF.
--- NOTE | 2025-08-08 12:45 | SWNOTE1 ---
JACQUELYN faxed updates to Tara at [facility] for precert. Updates included OT note, speech note and eval, physician note, vitals, and nursing notes.
--- NOTE | 2025-08-08 13:35 | SWNOTE1 ---
JACQUELYN faxed PT note to Tara at [facility] for precert.
[2025-08-08] MEDS: MAGNESIUM SULFATE IN WATER 2 GM/50 ML PREMIX IV (15:29)
--- NOTE | 2025-08-08 15:54 | SWNOTE1 ---
SW called and spoke to Eileen at [facility] and they did receive updates and they [facility].
--- NOTE | 2025-08-08 17:05 | PC.NURSE ---
Patient moved from room 224 to 232 at this time to be closer to the nurse's station. Spouse Kishore aware of room change. Patient sitting up in recliner with chair alarm on, call light within reach and denies any needs or questions.
--- NOTE | 2025-08-08 18:12 | PC.NURSE ---
LATE ENTRY Nurses outside of room heard a noise, found patient siting upright on floor. patient claims he slipped. Non slip socks on, chair alarm failed and did not alarm. Pt states I'm fine , pt denies any pain or dizziness. VS obtained. Neuro assessment completed. Dr. Hyatt notified and spouse Kishore notified. Dr. Hyatt did not provide any orders at this time.
[2025-08-08] MEDS: ATORVASTATIN CALCIUM 10 MG TABLET PO (22:08)
[2025-08-08] MEDS: ACETAMINOPHEN 325 MG TABLET 650 MG PO (22:08)
[2025-08-09] VITALS: BP 150/82; PULSE 104; PULSE 82; TEMP 36.6; O2SAT 97
--- NOTE | 2025-08-09 00:55 | PC.NURSE ---
Patient has increase confusion on place and time. Looking for truck keys and getting out of bed multiple times. Md notified.
[2025-08-09] MEDS: DIAZEPAM 10 MG/2 ML SYRINGE 2.5 MG IM (01:32)
[2025-08-09 01:56] VITALS: PULSE 90
[2025-08-09 03:57] VITALS: PULSE 78
[2025-08-09] MEDS: PIPERACILLIN SODIUM/TAZOBACTAM 3.375 GM in 0.9 % SODIUM CHLORIDE 50 ML IV (05:44)
[2025-08-09 05:50] VITALS: PULSE 75
[2025-08-09 05:52] VITALS: BP 151/89; PULSE 73; TEMP 36.4; O2SAT 97
--- NOTE | 2025-08-09 08:00 | CM.NOTE ---
Rounds made with Dr. Hyatt, discussed plan of care with pt. Pt will discharge to skilled when medically stable. CM or SW will contact insurance for precert information today.
[2025-08-09] MEDS: SOD PHOSPHATE,MONOBASIC-DIBAS 30 MMOL in 0.9 % SODIUM CHLORIDE 250 ML 43.333 MMOL IV (08:50)
[2025-08-09] MEDS: ASPIRIN 81 MG TAB.CHEW PO (08:51)
[2025-08-09] MEDS: ATENOLOL 25 MG TABLET 12.5 MG PO (08:51)
[2025-08-09] MEDS: FINASTERIDE 5 MG TABLET PO (08:51)
[2025-08-09] MEDS: GABAPENTIN 300 MG CAPSULE PO (08:51)
[2025-08-09] MEDS: ENSURE HP 237 ML LIQUID PO (08:51)
[2025-08-09] MEDS: TAMSULOSIN HCL 0.4 MG CAPSULE PO (08:51)
[2025-08-09] MEDS: APIXABAN 5 MG TABLET PO (08:52)
[2025-08-09] MEDS: SENNOSIDES/DOCUSATE SODIUM 1 TAB TABLET 2 TAB PO (08:52)
--- NOTE | 2025-08-09 09:15 | PM.DS1 ---
DS: Providers Provider Date of admission: 08/05/25 17:51 Primary care physician: Britt Mcneill NP Consults: 08/05/25 Consult to Dietitian Routine Reason for consultation: poor appetite Has provider been notified: No 08/05/25 17:41 Occupational Therapy Eval and Treat Routine Reason for consultation: weakness Physical Therapy Eval and Treat Routine Reason for consultation: Weakness 08/07/25 Speech Therapy Eval and Treat Routine Reason for consultation: swallowing difficulty 08/07/25 11:03 Speech Therapy Eval and Treat Routine Reason for consultation: Swallow eval DS: Diagnosis Discharge Diagnosis (1) Hyponatremia: (2) AMS (altered mental status): (3) Atrial fibrillation: (4) Type 2 diabetes mellitus with hyperglycemia: (5) Adult hypothyroidism: (6) Cachexia: (7) Hearing loss: (8) Encephalopathy: (9) Dehydration: Plan As listed above, below and others that are not listed DS: Summary Hospital Course Hospital Course: Mr. Aguilera is an 85-year-old gentleman who was brought in by EMS with change in mental status. As per report, the left him laying in bed for 18 hours before calling for help. Hyponatremia This is recurrent problem dated back to 2022. I discharged the patient on sodium chloride tablet and he has also urea as reported by his . I have great concern that his was not giving him sodium chloride tablet Last admission his cortisol level was 9 ruling out adrenal insufficiency as a cause of his hyponatremia. TSH was normal ruling out undertreated hypothyroidism as a cause of his hyponatremia. 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 Recent MRI of the brain does not show any brain tumor or metastasis to have caused SIADH. I started patient on 3% sodium. Sodium level is climbing up. Repeat BMP every 8 hours. Sodium level is back to normal. Continue sodium chloride tablet. Adjust accordingly. Sodium stays normal while taking sodium chloride tablet here in the hospital suggestive that may not be giving him sodium chloride tablet at home. Sodium dropped down to 118 within 1 week after discharge. Altered mental status, encephalopathy, likely metabolic encephalopathy secondary to hyponatremia. Patient started waking up as his sodium level is been corrected. CT head is negative for acute intracranial process. Mental status is back to baseline which is consistent with moderate to cognitive loss. Moderate functional loss. No symmetrical deficit. Vomiting. Resolved, NG tube is out until patient is tolerating food. Hypoxic respiratory failure after he vomited. Suspect aspiration. Repeat chest x-ray showed basilar atelectasis, probable infiltration. Continue Zosyn for now. Switch to oral Augmentin for 5 days on discharge. Cachexia, frailty, failure to thrive, moderate protein calorie malnutrition, muscle wasting Continue oral protein supplementation. Cachexia and weight loss investigation would need to take place. Could take place in the outpatient setting by PCP Diabetes. Sliding scale coverage. Resume Januvia when the patient is able to swallow. BPH Continue Flomax and Proscar when patient is able to swallow. Urinary retention more than 700 mL at night. Dowd catheter was inserted. Trial of Dowd removal and postvoid bladder scan. Chronic A-fib. It is controlled. Convert to oral beta-dimitris to IV due to inability to swallow Continue Eliquis and small dose beta-dimitris at this time. Cognitive and functional impairment. Chronic and progressive. Not sure if patient is safe at home. Last admission I recommended for patient to go to SNF, may be [facility]. He adamantly refused. His is supportive to him. Not sure if is cognitively able to to take care of him at home and provide him the meds that he needs. We will consult social economist. Likely patient would end up going to skilled care at least for short period of time. Likely he may need a long-term [facility] living. Chronic medical conditions not listed above, incidental findings seen on labs and imaging. These would need to be addressed. Could be addressed when time and condition are appropriate. Could be addressed in the outpatient setting by PCP collaboration with other needed outpatient providers. CODE STATUS, based on my conversation with his last admission he is CCA. Consideration to switch him to CC. Patient has multiple complex medical issues as listed above and others that are not listed. All appear to be stable. I do not have any clear or strong clinical justification to extend inpatient hospitalization. Patient however will require close and frequent monitoring as well as additional work-up, investigation and therapeutic intervention that could take place from this point on post discharge. That is to prevent relapse, decompensation, rehospitalization and other medical implications.. I instructed patient to ask her primary care doctor to obtain [facility] record entirely to address abnormalities seen on labs and imaging that I have and have not addressed during this hospitalization, follow-up on pending blood work, imaging and pathology is if available and to follow-up on needed medical care in the outpatient setting. Time Spent with Patient Time attestation: Total time spent providing and/or coordinating discharge services: Time spent: greater than 30 minutes Exam Constitutional Vital Signs, click to edit/add: Last Vital Signs Temp 97.5 F L 08/09/25 05:52 Pulse 73 08/09/25 05:52 Resp 16 08/09/25 05:52 BP 151/89 H 08/09/25 05:52 Pulse Ox 97 08/09/25 05:52 O2 Del Method Room Air 08/09/25 05:52 O2 Flow Rate 96 08/06/25 11:19 Discharge Plan Discharge Disposition: Xfer [facility] Discharge Medications: New sennosides-docusate sodium 8.6-50 mg Tablet 2 tab PO QD Qty: 30 0RF amoxicillin-pot clavulanate [Augmentin] 500-125 mg tablet 1 tab PO BID Qty: 14 0RF calcium carbonate 200 mg calcium (500 mg) Tablet,Chewable 500 mg PO TID PRN (Reason: Indigestion) Qty: 0 0RF sodium chloride 1,000 mg Tablet,Soluble 2,000 mg PO BID Qty: 0 0RF Rx Instructions: Titrate slightly up and down to keep her sodium level between 130-136. Based on BMP every Tuesday and for 2 weeks and if stable BMP weekly Ensure Active Protein-Muscle Liquid 1 ea PO BID Qty: 0 0RF Continued levothyroxine 25 mcg tablet 25 mcg PO QAM pravastatin 40 mg tablet 40 mg PO DAILY tamsulosin 0.4 mg capsule 0.4 mg PO DAILY atenolol 25 mg Tablet 12.5 mg PO DAILY aspirin 81 mg Tablet,Delayed Release (Dr/Ec) 81 mg PO QD 5 Days Qty: 5 0RF omeprazole 40 mg capsule,delayed release(DR/EC) 40 mg PO DAILY meloxicam 7.5 mg tablet 7.5 mg PO DAILY PRN (Reason: Pain) Qty: 0 0RF Januvia 100 mg tablet 100 mg PO DAILY Qty: 30 1RF finasteride 5 mg tablet 5 mg PO DAILY gabapentin 300 mg capsule 300 mg PO DAILY Eliquis 5 mg tablet 5 mg PO Q12H Discontinued sodium chloride 1,000 mg tablet,soluble 1,000 mg PO TID Qty: 0 0RF Print Language: [place] Citizen Activity Restrictions/Additional Instructions: I may not have addressed or treated all of your medical illnesses or the abnormal blood work or imaging studies during this hospitalization. Please ask your primary care provider to obtain [facility] records entirely to follow up on all of the abnormal physical, laboratory, and imaging findings that I have not addressed. Please return back to the emergency room or seek medical attention if your symptoms worsen or return. For penitentiary providers Patient is DNR CCA Fall precautions. Please use all needed precautions to prevent falls. Recommend BMP every Tuesday and for 2 weeks. If his sodium level is stable then weekly BMP. Titrate sodium chloride tablet up and down to keep sodium level between 130 and 136 Water restriction, 3135-0393 mL in 24 hours. Discharging you from [facility] does not mean that your medical care ends here and now. You may still need additional monitoring, work up, investigation, and treatment plan to be handled from this point on by out patient providers including your primary care provider and specialists. For any medication question, please contact your retail pharmacist or your primary care provider. Thank you. Forms: Portal Instructions
--- NOTE | 2025-08-09 09:45 | CM.NOTE ---
Dr. Hyatt updated on post void bladder scan.
--- NOTE | 2025-08-09 09:45 | SWNOTE1 ---
SW called pt's insurance, [employer], SW spoke to Brandie and she was able to see that precert was still pending at this time. JACQUELYN emailed [facility] and [facility] to see if they have approval at this time and they do not. SW to send updates.
--- NOTE | 2025-08-09 10:01 | SWNOTE1 ---
SW completed [id number] online.
[2025-08-09 10:14] LABS: Anion Gap 10.8; Blood Urea Nitrogen 7.0 mg/dL (7.0-18.0); Calcium 8.7 mg/dL (8.5-10.1); Carbon Dioxide 26.9 mmol/L (21.0-32.0); Chloride 97 mmol/L (98-107); Estimated GFR (African America >60 (>=60 mL/min/1.73m^2); Estimated GFR (Non-African Ame >60 (>=60 mL/min/1.73m^2); Glucose 230 mg/dL (74-106); Magnesium 1.5 mg/dL (1.8-2.4); Potassium 3.7 mmol/L (3.5-5.1); Sodium 131 mmol/L (136-145)
--- NOTE | 2025-08-09 10:33 | SWNOTE1 ---
JACQUELYN faxed PT note, dc summary, dc med rec, vitals, and nursing notes to Tara at [facility].
--- NOTE | 2025-08-09 11:00 | SWNOTE1 ---
SW did send dc med rec and dc summary. SW took packet to the floor in case of approval.
--- NOTE | 2025-08-09 11:17 | SWNOTE1 ---
JACQUELYN received a call from Eileen at [facility] and pt is approved to go. JACQUELYN let nurse know and will set up transport. Discharge information is already complete. JACQUELYN called [facility], no answer, unsure if they have transport. JACQUELYN called trips and set up transport for . JACQUELYN notified Adonay at [facility], nurse, and pt's of time. Pt is going skilled to [facility].
--- NOTE | 2025-08-09 11:24 | CM.NOTE ---
The patient's was notified that her was approved for jail at the [facility] and will be transferred at 1245 today.
--- NOTE | 2025-08-09 11:25 | SWNOTE1 ---
[facility] transport set for 12:45.
[2025-08-09] MEDS: MAGNESIUM SULFATE IN WATER 4 GM/100 ML PIGGYBACK IV (11:30)
== END 2025-08-09 13:03 | DRG 643 ==
LOC: ER 16:55 → MS 21:40
PROVIDERS: Admitting Provider Internal Medicine; Emergency Provider Emergency Medicine; PCP Nurse Practitioner Family; Visit Provider Internal Medicine
DX: E22.2 Syndrome of inappropriate secretion of antidiuretic hormone (principal); G93.41 Metabolic encephalopathy; J96.91 Respiratory failure, unspecified with hypoxia; R64 Cachexia; G93.40 Encephalopathy, unspecified; E44.0 Moderate protein-calorie malnutrition; I48.20 Chronic atrial fibrillation, unspecified; E78.00 Pure hypercholesterolemia, unspecified; Z79.01 Long term (current) use of anticoagulants; Z79.82 Long term (current) use of aspirin; Z79.899 Other long term (current) drug therapy; R54 Age-related physical debility; M62.58 Muscle wasting and atrophy, not elsewhere classified, other site; E11.65 Type 2 diabetes mellitus with hyperglycemia; E03.9 Hypothyroidism, unspecified; Z79.890 Hormone replacement therapy; E86.0 Dehydration; R41.82 Altered mental status, unspecified; H91.90 Unspecified hearing loss, unspecified ear; R11.10 Vomiting, unspecified; Z79.84 Long term (current) use of oral hypoglycemic drugs; N40.0 Benign prostatic hyperplasia without lower urinary tract symptoms; R33.9 Retention of urine, unspecified; R63.1 Polydipsia; Z66 Do not resuscitate; Z68.22 Body mass index [BMI] 22.0-22.9, adult
CPT/HCPCS: 36415; 51798; 70450; 71045; 74018; 76705; 80048; 80053; 80076; 81003; 82948; 83605; 83735; 84100; 84443; 84484; 85025; 85027; 85610; 92526; 92610; 93005; 94761; 96361; 96374; 97110; 97162; 97165; 97530; 97535; 99285; J1650; J2405; J2543; J2765; J3360; J3475; J7131

== ENCOUNTER 2025-09-03 01:01 | Inpatient (IN) | payer MEDICARE, SELFPAY ==
[2025-09-03] VITALS (105 sets, daily range): BP systolic 112–165; BP diastolic 58–100; PULSE 65–194; TEMP 36.1–36.9; O2SAT 74–99; BMI 22.2
--- NOTE | 2025-09-03 | XR_ITS ---
The [address] [address] Patient Name: INDIANA ZABALA MRN: [id number] date: 1940 Sex: M Assigned Patient Location: ER Current Patient Location: ER Accession/Order Number: [id number] Exam Date: 09/03/2025 03:55 Report Date: 09/03/2025 08:05 At the request of: ROBERT BERNAL MD Procedure: XR chest 1V XR chest 1V 09/03/2025 6:49 AM SIGNS AND SYMPTOMS: ^Evaluation for pneumothorax PROTOCOL: Frontal radiograph of the chest COMPARISON: 09/03/2025 FINDINGS: The trachea is midline. The heart and mediastinal structures are within normal limits. A suspected skinfold is redemonstrated over the left hemithorax. This is unchanged. The lung parenchyma is clear. The bony thorax is intact. Anterior fusion hardware is noted in the cervical spine. Degenerative changes are noted in the shoulders and thoracic spine. XR/XR chest 1V IMPRESSION: No acute cardiopulmonary pathology. Impression dictated by: Antelmo Sinha M.D. 09/03/2025 8:05 AM [facility]ation [facility] Electronically authenticated by: [id number] Y Date: 09/03/2025 08:05
--- OUTSIDE RECORDS SUMMARY | 2025-09-03 01:14 | XMS_ITS | CCD ---
Author Organization [facility] Care Team Providers Care Coconut Candy Maker Name Role Phone Jada Rene Unavailable Unavailable [...] Unavailable Edwin Garcia MD Primary Care Provider [phone] HERNÁNDEZ, AXEL T Referring Unavailable HERNÁNDEZ, AXEL [...] Unavailable Kirnus, Kashif D Attending Unavailable Jules MENTALLY RETARDED TEACHER - GLASS TECHNICIAN/INSTALLERJaden Primary Care Provider Edwin Garcia Referring Unavailable [...] Unavailable MD Edwin Garcia Attending Unavailable Reyes MENTALLY RETARDED TEACHER-Yanique QUAN Primary Care Provider YANIQUE MCNEILL A Attending Unavailable Jules Jaden L Attending Unavailable REYES, YANIQUE A Attending Unavailable REYES, YANIQUE A Attending Unavailable REYES, YANIQUE A Admitting Unavailable REYES, YANIQUE A Attending Unavailable REYES, YANIQUE A Attending Unavailable REYES, YANIQUE A Admitting Unavailable REYES, YANIQUE A Admitting Unavailable REYES, YANIQUE A Admitting Unavailable Reyes BEAUTY THERAPIST-BC, Yanique A Primary Care Provider Billy COHN, Thalia Admit Provider Billy COHN, Thalia Other Provider Dev Archuleta DO Other Provider Duy COHN, Darien Other Provider Win Santillan DO Other Provider Leila COHN, Axel Attending Provider Axel Dee MD Other Provider Thalia Cervantes Attending Unavailable Reyes, Yanique A Primary Care Unavailable Axel Dee Consulting Unavailable Thalia Cervantes Admitting Unavailable Blossom Oleary Unavailable Zechariah Crews Consulting Unavailable Varsha Dela Cruz Consulting Unavailable Chau Márquez Consulting Unavailable Blossom Bee Consulting Unavailable Rajan Aggarwal Consulting Unavailable Nkansah-Amankra, Silvestre Consulting Unavail able Preethi Mena Consulting Unavailable Melissa Corbett Consulting Unavailable Dev Archuleta Consulting Unavailable Darien Gordillo Consulting Unavailable Win Santillan Consulting Unavailable Edwin Garcia Admitting Unavailable Edwin Garcia Attending Unavailable REYES, YANIQUE A Attending Unavailable REYES, YANIQUE A Attending Unavailable Edwin Garcia Attending Unavailable REYES, YANIQUE A Admitting Unavailable REYES, YANIQUE A Attending Unavailable REYES, YANIQUE A Attending Unavailable REYES, YANIQUE A Attending Unavailable REYES, YANIQUE A Admitting Unavailable REYES, YANIQUE A Attending Unavailable REYES, YANIQUE A Admitting Unavailable REYES, YANIQUE A Admitting Unavailable REYES, YANIQUE A Admitting Unavailable Zechariah CREWS Attending Unavailable Jaden Maravilla Attending Unavailable Jaden Maravilla Attending Unavailable Allergies Allergy Classification Reported Allergen(s) Allergy Type Date of Onset Reaction(s) Facility (12 sources) No Known Medication Allergies; Translations: [No Known Medication Allergies] Propensity to adverse reactions (disorder) [facility] Repository Medications Current Medications Medication [...] every four hours as needed for pain Lewisberry 325 mg-5 mg oral tablet See Instructions, [...] daily, # 90 tab(s), Refills(s) 1, Pharmacy: [facility], 178, cm, 09/10/24 13:01:00 EDT, Height/Length Dosing, 80.1, kg, 09/10/24 13:01:00 EDT, Weight Dosing Start Date: 10/22/24 Status: Ordered Quantity: 90.0 Unit: tab(s) Repeat number: 2 Start: 04-20-2024 atenolol 25 mg Tab See Instructions, take 1/2 tab daily, # 30 tab(s), Refills(s) 5, Pharmacy: [facility]/pharmacy #[id number], 180, cm, 04/20/24 13:27:00 [...] Corticosteroid Start: 08-31-20 fluticasone Nasal 0.05 mg/inh [place] See Instructions, 48 mL, Refill(s) 1, USE 1 SPRAY IN EACH NOSTRIL TWICE A DAY, [id number], 178, cm, 08/28/24 14:50:00 EDT, Height/Length Dosing, 82.2, kg, 08/28/24 14:50:00 EDT, Weight Dosing Start Date: 08/31/24 Status: Ordered Start: 07-03-2024 take 1 spray(s) nasa l route twice daily Flonase 0.05 mg/inh [place] 1 spray(s), Nasal, BID, 16 gram, Refill(s) 0, each nostril, [facility]/pharmacy #[id number], 178, cm, 07/03/24 10:05:00 [...] Complies with drug therapy Start: 12-01-2023 End: 08-08-2025 take 300 mg by mouth once daily [...] STOMACH, # 90 tab(s), Refills(s) 1, Pharmacy: [facility] ST[id number], 178.6, cm, 02/05/25 13:36:00 EDT, Height/Length Dosing, 82.2, kg, 02/05/25 13:36:00 EDT, Weight Dosing Start Date: 03/07/25 Status: Ordered Quantity: 90.0 Unit: tab(s) Repeat number: 1 Start: 08-20-2024 Synthroid 25 m cg(0.025 mg) Tab See Instructions, TAKE 1 TABLET DAILY ON AN EMPTY STOMACH, # 3 tab(s), Refills(s) 0, Pharmacy: [facility]/pharmacy #[id number], 178, cm, 08/07/24 10:59:00 EDT, Height/Length Dosing, 78.2, kg, 08/07/24 10:59:00 EDT, Weight Dosing Start Date: 08/20/24 Status: Ordered Quantity: 3.0 Unit: tab(s) Repeat number: 1 Start: 02-13-2024 take 1 tablet by alyssa th once daily levothyroxine 25 mcg (0.025 mg) Tab 25 mcg = 1 tab(s), Oral, Daily, on an empty stomach, # 90 tab(s), Refills(s) 1, Pharmacy: [facility], 178.2, cm, 02/02/24 10:29:00 EDT, Height/Length [...] DAILY, # 30 tab(s), Refills(s) 2, Pharmacy: [facility], 178.6, cm, 02/05/25 13:36:00 EDT, Height/Length Dosing, 82.2, kg, 02/05/25 13:36:00 EDT, Weight Dosing Start Date: 04/25/25 Status: Ordered Quantity: 30.0 Unit: tab(s) Repeat number: 3 Start: 01-07-2025 take 1 tablet by alyssa once daily meloxicam 7.5 mg Tab 7.5 mg = 1 tab(s), Oral, Daily, TAKE 1 TABLET DAILY, # 30 tab(s), Refills(s) 2, Pharmacy: [facility], 178.6, cm, 12/24/24 13:13:00 EST, Height/Length Dosing, 79, kg, 12/24/24 13:13:00 EST, Weight Dosing Start Date: 01/07/25 Status: Ordered Quantity: 30.0 Unit: tab(s) Repeat number: 3 Start: 12-06-2024 take 1 tablet by alyssa once daily meloxicam 7.5 mg Tab 7.5 mg = 1 tab(s), Oral, Daily, TAKE 1 TABLET DAILY, # 30 tab(s), Refills(s) 2, Pharmacy: [facility], 178.6, cm, 11/01/24 9:21:00 EST, Height/Length [...] activity, # 5 tab(s), Refills(s) 0, Pharmacy: [facility], 178, cm, 07/03/24 10:05:00 EDT, Height/Length Dosing, 80.8, kg, 07/03/24 10:05:00 EDT, Weight Dosing Start Date: 07/03/24 Status: Ordered Quantity: 5.0 Unit: tab(s) Repeat number: 1 take 1 tablet by alyssa once daily [...] HOURS, First dose (after last modification) on [place] 06/02/25 at 1415, Until Discontinued Start: 06-02-2025 IntraVENous, a t 5-250 mL/hr, PRN, if patient receiving piggyback infusions and maintenance fluids are not ordered, Starting on [place] 06/02/25 at 1205, For piggyback infusion, administer [...] needed 10 mL, IntraVENous, PRN, Starting on Tue06/02/25 at 1205, Until Discontinued, Line Care, After every IV line use Start: 05-14-2025 End: 06-05-2025 take 1000 mg by mouth three times daily 1,000 mg, oral, 3 times daily around food, First dose (after last modification) on Tue06/20/25 at 1700 Start: 05-14-2025 Sodium Chlorid e 1 g oral tablet See Instructions, Take 1g BID daily, # 180 tab(s), Refills(s) 0, [id number] 178.6, cm, 05/09/25 8:18:00 EDT, Height/Length Dosing, 80.6, kg, 05/09/25 8:18:00 EDT, Weight Dosing Start Date: 05/14/25 Status: Ordered Quantity: 180.0 Unit: tab(s) Repeat number: 1 Start: 02-06-2025 Sodium Chlorid e 1 g oral tablet See Instructions, Take 1g BID daily, # 60 tab(s), Refills(s) 3, [id number], 178.6, cm, 02/05/25 13:36:00 EDT, Height/Length Dosing, 82.2, kg, 02/05/25 13:36:00 EDT, Weight Dosing Start Date: 02/06/25 Status: Ordered Quantity: 60.0 Unit: tab(s) Repeat number: 4 Start: 01-24-2025 take 1 tablet by alyssa twice daily Sodium Chloride 1 g oral tablet See Instructions, 1 gram orally BID, # 180 tab(s), Refills(s) 0, Pharmacy: [facility], 178.6, cm, 01/24/25 13:29:00 EDT, Height/Length Dosing, 82.7, kg, 01/24/25 13:29:00 EDT, Weight Dosing Start Date: 01/24/25 Status: Ordered Start: 01-07-2025 take 1 tablet by mouth once da rasta Sodium Chloride 1 g oral tablet See Instructions, 1 gram orally daily, # 90 tab(s), Refills(s) 0, [id number], 178.6, cm, 12/24/24 13:13:00 EST, Height/Length Dosing, 79, kg, 12/24/24 13:13:00 EST, Weight Dosing Start Date: 01/07/25 Status: Ordered Start: 12-26-2024 take 1 tablet by mouth once da rasta Sodium Chloride 1 g oral tablet See Instructions, 1 gram orally daily, # 90 tab(s), Refills(s) 0, Pharmacy: [facility], 178.6, cm, 12/24/24 13:13:00 EST, Height/Length Dosing, 79, kg, 12/24/24 13:13:00 EST, Weight Dosing Start Date: 12/26/24 Status: Ordered Start: 12-17-2024 take 1 tablet by mouth once da rasta Sodium Chloride 1 g oral tablet See Instructions, 1 gram orally daily, # 90 tab(s), Refills(s) 0, Pharmacy: [facility], 178.6, cm, 12/17/24 15:05:00 EST, Height/Length Dosing, 78.5, kg, 12/17/24 15:05:00 EST, Weight Dosing Start Date: 12/17/24 Status: Ordered Start: 06-27-2024 take 1 tablet by mouth once da rasta Sodium Chloride 1 g oral tablet See Instructions, 1 gram orally daily, # 90 tab(s), Refills(s) 0, [id number], 178, cm, 06/11/24 12:53:00 EDT, [...] DAY, # 90 tab(s), Refills(s) 2, [id number], 180.5, cm, 03/20/24 15:05:00 EDT, [...] DAY, # 90 tab(s), Refills(s) 2, Pharmacy: [facility], 178.2, cm, 12/01/23 13:40:00 EST, Height/Length Dosing, 85.5, kg, 12/01/23 13:40:00 EST, Weight Dosing Start Date: 12/23/23 Status: Ordered Sodium Chloride 1000 mg oral tablet, soluble (1 source) Start: 11-13-2024 take 1 tablet by mouth once daily Sodium Chloride 1000 mg oral tablet, soluble See Instructions, 30 tab(s), Refill(s) 0, Take one tablet daily, [id number] 178.6, cm, 11/01/24 9:21:00 EST, [...] dysfunction, # 7 tab(s), Refills(s) 0, [id number], 178.6, cm, 02/05/25 13:36:00 EDT, [...] above: Take 1 capsule by [facility] twice daily. glipiZIDE 5 mg oral tablet [...] for injection by adding 1 mL of career specialist-supplied sterile diluent or sterile water for [...] by mouth daily Suspended polyethylene glycol 3350 04251 mg powder for oral solution (1 source) [...] on above: Take 1 capsule by mo [facility] daily at bedtime. tolvaptan (SAMSCA) pre-split [...] by mo uth in the morning coenzyme [id number] E 100-5 mg-unit capsule Take 100 mg [...] Coronary atherosclerosis; Translations: [Atherosclerotic heart disease of [place] coronary artery without angina pectoris] Onset: 4 [...] of anticoagulants] Episodic Other aftercare (3 sources) medical terminologist (current) use of anticoagulants Episodic Other aftercare (1 source) Post-discharge follow-up 12-17-2024 Episodic Other aftercare (2 sources) Anticoagulant effect; Translations: [medical terminologist (current) use of anticoagulants] Onset: 5 06-02-2025 [...] Translations: [Other obstructive and reflux uropathy] Onset: 5 Episodic Other ear and sense organ disorders [...] vascular disease; Translations: [Atherosclerotic heart disease of [place] coronary artery without angina pectoris] Onset: 5 [...] Interpretation Reference Range Facility Ambulatory Visit Summaryon 1 Ambulatory Visit Summary Ambulatory Visit Summary DARIEL ZABALA :1940 Visit Date:08/26/2025 Ambulatory Visit Instructions Your Diagnosis Hyponatremia Your Care Team Attending Physician - YANIQUE [...] mg Tab) meloxicam (meloxicam 7.5 mg Tab) pravastatin (pravastatin 40 mg Tab) Procedures Performed Carpal tunnel release (11/19/2024), Carpal tunnel release (03/26/2024), Carpal tunnel release, Nose, Release of trigger finger, Surgery. Discharge Vitals Temperature (Oral) 36.8 ???C Heart Rate (Peripheral) 64 Respiratory Rate 18 Blood Pressure 110/72 Height 178 cm Height 70 in Weight 72.5 kg Weight 159.835 lb BMI 22.88 What to do next Scheduled Follow-Up Appointments Tuesday 10:00 AM EDT With: Where: [address] [id number]- Tuesday 11:00 AM EST With: Jaden Pineda Where: [address] [address]- Tuesday2025 8:00 AM EDT With: Where: [address] [address]- Medications What How Much When Why Instructions [...] MOUTH DAILY ON AN EMPTY STOMACH Unchanged lisinopril (lisinopril 10 mg Tab) Unchanged meloxicam (meloxicam 7.5 mg Tab) 1 Tablets By Mouth Every day TAKE 1 TABLET DAILY Unchanged Non-Formulary Medication (Ure-Na) See instructions Hyponatremia DM type 2 causing vascular disease BMI 23.0-23.9, adult Nonsmoker Natural Lemon Chitimacha flavor Unchanged pravastatin (pravastatin 40 mg Tab) [...] you for choosing us for your care. Patient Portal You may access all of your results and other medical record information on our secure patient portal. If you are not signed up for this yet, please contact [employer] at [phone] to get signed up today. Language Information Language assistance services are available as needed. [facility] Family Medicine Office/Clini c Noteon 08-26-2025 Family Medicine Office/Clinic Note Family Medicine Office/Clinic Note Chief Complaint TCU follow up The patient presents for follow-up on hyponatremia and medication management. HPI Staff Pt presents today for [facility] Hospital: [facility] Admission date: 08/09/25 Discharge date: 08/19/25 Symptoms the patient presented with: Hyponatremia Current concerns: History of Present Illness 85-year-old male presenting with follow-up for hyponatremia management and medication review. The patient has experienced recurrent hospitalizations due to low sodium levels, attributed to inconsistent sodium supplementation. His sodium level was critically low at 118 mEq/L during the last hospitalization, necessitating intervention. The patient has been transitioning between care facilities, which has led to changes in medication management. The patient has also experienced significant weight loss, dropping from 165 pounds to 156 pounds, although a recent measurement indicated a weight of 159 pounds. He has been using nutritional supplements like Ensure to address this issue. Review of Systems PHQ Score Initial Depression Screen Score: 0 SCORE - General: Reports feeling okay, denies feeling capable of running a marathon. - Musculoskeletal: Reports walking independently at times, undergoing physical therapy for strength and endurance. Physical Exam Vitals & Measurements T: 36.8 ???C(Oral) HR: 64(Peripheral) RR: 18 BP: 110/72 SpO2: 99% HT: 178 cm HT: 70 in WT: 159.835 lb WT: 72.5 kg BMI: 22.88 General: alert, no acute distress Skin: warm, dry Head: no trauma, normocephalic Cardiovascular: regular rate and rhythm, normal peripheral perfusion Respiratory: Lungs CTA, respirations non labored Back: No tenderness, Normal ROM, Normal alignment. Extremities: no deformity, no trauma Neurological: oriented x 4, LOC appropriate for age, CN II-XII intact, motor strength equal & normal bilaterally, sensation equal & normal bilaterally, speech normal Psychiatric: cooperative, affect appropriate for age, normal judgement, normal psychiatric thoughts. Assessment/Plan 1. Hyponatremia (E87.1: Hypo-osmolality and hyponatremia) - Plan to check sodium levels today due to its critical importance. - Ensure consistent sodium supplementation to prevent recurrence of low sodium levels. - Monitor medication management closely, especially during transitions between care facilities. - Encouraged to continue with HH as ordered - f/u in 4 weeks Ordered: Discharge medications reconciled with current medications in outpatient record [id number] Sodium Level [facility] 14 day disch [id number] 2. Weight loss (R63.4: Abnormal weight loss) - Encourage continued use of nutritional supplements like Ensure to address weight loss. - Monitor weight regularly to assess effectiveness of nutritional interventions. - Samples of Ensure given to patient - f/u in 4 weeks Orders: apixaban, 5 mg = 1 tab(s), Oral, BID, 5 Unknown, oral, 0 Refill(s), Take 1 tablet (5 mg total) by mouth in the morning and 1 tablet (5 mg total) before bedtime. Do all this for 30 days., # 180 tab(s), Refills(s) 0, Pharmacy: [facility]/pharmacy #[id number], 178, cm, ... atorvastatin, 10 mg = 1 tab(s), Oral, Daily, 14 EA, 0 Refill(s), TAKE 1 TABLET BY MOUTH EVERY DAY, # 90 tab(s), Refills(s) 0, Pharmacy: [facility]/pharmacy #[id number], 178, cm, 08/26/25 10:31:00 EDT, Height/Length Dosing, 72.5, kg, 08/26/25 10:31:00 EDT, Weight Dosing linagliptin, 5 mg = 1 tab(s), Oral, Daily, 14 EA, 0 Refill(s), TAKE 1 TABLET BY MOUTH EVERY DAY, # 90 tab(s), Refills(s) 0, Pharmacy: [facility]/pharmacy #[id number], 178, cm, 08/26/25 10:31:00 EDT, Height/Length Dosing, 72.5, kg, 08/26/25 10:31:00 EDT, Weight Dosing magnesium oxide, 500 mg = 1 cap(s), Oral, Daily, 14 EA, 0 Refill(s), TAKE 1 CAPSULE BY MOUTH EVERY DAY, # 90 cap(s), Refills(s) 0, [id number], 178, cm, 08/26/25 10:31:00 EDT, Height/Length Dosing, 72.5, kg, 08/26/25 10:31:00 EDT, Weight Dosing Follow-up No qualifying data available Patient Education Hyponatremia, Cekd-ir-Vtoy Problem List/Past Medical History Ongoing ASCVD (arteriosclerotic [...] 25 mg Tab, See Instructions, 2 refills atorvastatin 10 mg Tab, 10 mg= 1 tab(s), Oral, Daily D3, See I (more content not included)... Normal [facility] Comment on above: Result Comment: Elec tronically Signed By: YANIQUE MCNEILL CNP\.br\Date and Time Signed: 08/26/25 12:06 EDT Ambulatory Visit Summaryon 0 07-25-2025 Ambulatory Visit Summary Ambulatory Visit Summary VJ DARIEL :1940 Visit Date:07/25/2025 Ambulatory Visit Instructions Your [...] EDT With: YANIQUE MCNEILL CNP Where: [address] [address]- Tuesday2025 8:00 AM EDT With: Where: [address] [address]- Medications What How Much When [...] disease BMI 23.0-23.9, adult Nonsmoker Natural Lemon Chitimacha flavor Unchanged pravastatin (pravastatin 40 mg Tab) [...] Erectile dysfuncti (more content not included)... Normal [facility] Family Medicine Office/Clini c Noteon [...] health services, although they were ordered by [facility] to assist with gastrointestinal and genitourinary assessments, [...] 7.5 mg (more content not included)... Normal [facility] Comment on above: Result Comment: Elec tronically Signed By: YANIQUE MCNEILL CNP\.br\Date and Time Signed: 07/25/25 11:58 EDT Glucose Poct Glucometerson 0 07-23-2025 Glucose [Mass/Vol] 137 mg/dL Normal [facility] Comment on above: Result Comment: [place] Glucose Reference Range is dependent on time and content of last meal. Glucose of more than 200 mg/dL in a nonstressed, ambulatory subject supports the diagnosis of Diabetes Mellitus. PERFORMED BY: [place] [address] PATHOLOGIST YARN TWISTER MARIAM WANG M.D. Performed By: #### C DT #### [facility] [address] CBC W Auto Differential pane l (Bld)on 07-22-2025 Basophils (Bld) [#/Vol] 0 10*3/uL 0.0 - 0.2 10*3/uL [facility] Basophils/100 WBC Manual cnt (Syn fld) 0.4 % . [facility] care Eosinophils (Bld) [#/Vol] 0.1 10*3/uL 0.0 - 0.45 10*3/uL [facility] Eosinophils/100 WBC Manual cnt (Syn fld) 2.2 % . [facility] Erythrocyte distribution width (RBC) [Ratio] 13.6 % 12.0 - 14.8 % [facility] Hematocrit (Bld) [Volume fraction] 32.4 % Low 38.8 - 50.0 % [facility] Hemoglobin (Bld) [Mass/Vol] 11.2 g/dL Low 13.0 - 17.0 g/dL [facility] Interpretation and review of laboratory results Abnormal [facility] Lymphocytes (Bld) [#/Vol] 1.2 10*3/uL 1.00 - 4.8 10*3/uL [facility] Lymphocytes/100 WBC Manual cnt (Syn fld) 16.8 % . [facility] MCH (RBC) [Entitic mass] 31.5 pg 27.5 - 35.2 pg [facility] MCHC (RBC) [Mass/Vol] 34.4 g/dL 32.5 - 35.6 g/dL [facility] MCV (RBC) [Entitic vol] 91.5 fL 83.5 - 101 fL [facility] Monocytes (Bld) [#/Vol] 0.6 10*3/uL 0.0 - 0.8 10*3/uL [facility] Monocytes+Macrophages /100 WBC Manual cnt (Syn fld) 8.3 % . [facility] Neutrophils (Bld) [#/Vol] 5 10*3/uL 1.8 - 7.7 10*3/uL [facility] Neutrophils/100 WBC Manual cnt (Syn fld) 72.3 % . [facility] NRBC 0.1 /100{WBC} 0 - 0.5 /100{WBC} [facility] Platelet mean volume (Bld) [Entitic vol] 8.8 fL 6.6 - 10.1 fL [facility] Platelets (Bld) [#/Vol] 157 10*3/uL 150 - 450 10*3/uL [facility] RBC LM.HPF (Urine sed) [#/Area] 3.54 10*6/uL Low 3.90 - 5.60 10*6/uL [facility] WBC (Bld) [#/Vol] 6.9 10*3/uL 4.1 - 10.5 10*3/uL [facility] WBC LM.HPF (Urine sed) [#/Area] 6.9 [CFU]/mL 4.1 - 10.5 [CFU]/mL [facility] Healthcar e Complete Blood Count Auto Di ffon 07-22-2025 Basophils (Bld) [#/Vol] 0.0 10*3/uL Normal 0.0-0.2 [facility] Comment on above: Result Comment: PERF ORMED BY: [place] [address] PATHOLOGIST YARN TWISTER MARIAM WANG M.D. Performed By: #### C DT #### [address] Basophils/100 WBC (Bld) 0.4 % Normal . [facility] Comment on above: Performed By: #### C DT #### [address] Eosinophils (Bld) [#/Vol] 0.1 10*3/uL Normal 0.0-0.45 [facility] Comment on above: Performed By: #### C DT #### [address] Eosinophils/100 WBC (Bld) 2.2 % Normal . [facility] Comment on above: Performed By: #### C DT #### [address] Erythrocyte distribution width (RBC) [Ratio] 13.6 % Normal 12.0-14.8 [facility] Comment on above: Performed By: #### C DT #### [address] Hematocrit (Bld) [Volume fraction] 32.4 % Low 38.8-50.0 [facility] Comment on above: Performed By: #### C DT #### [address] Hemoglobin (Bld) [Mass/Vol] 11.2 g/dL Low 13.0-17.0 [facility] Comment on above: Performed By: #### C DT #### [address] Lymphocytes (Bld) [#/Vol] 1.2 10*3/uL Normal 1.00-4.8 [facility] Comment on above: Performed By: #### C DT #### [address] Lymphocytes/100 WBC (Bld) 16.8 % Normal . [facility] Comment on above: Performed By: #### C DT #### [address] MCH (RBC) [Entitic mass] 31.5 pg Normal 27.5-35.2 [facility] Comment on above: Performed By: #### C DT #### [address] MCV (RBC) [Entitic vol] 91.5 fL Normal 83.5-101 [facility] Comment on above: Performed By: #### C DT #### [address] Mean Corpuscular HGB Conc 34.4 g/dL Normal 32.5-35.6 [facility] Comment on above: Performed By: #### C DT #### [address] Monocytes (Bld) [#/Vol] 0.6 10*3/uL Normal 0.0-0.8 [facility] Comment on above: Performed By: #### C DT #### [address] Monocytes/100 WBC (Bld) 8.3 % Normal . [facility] Comment on above: Performed By: #### C DT #### [address] Neutrophils (Bld) [#/Vol] 5.0 10*3/uL Normal 1.8-7.7 [facility] Comment on above: Performed By: #### C DT #### [place] [address] [place] Neutrophils/100 WBC (Bld) 72.3 % Normal . [facility] Comment on above: Performed By: #### C DT #### [facility] [address] NRBC% 0.1 /100{WBC} Normal 0-0.5 [facility] Comment on above: Performed By: #### C DT #### [address] Platelet mean volume (Bld) [Entitic vol] 8.8 fL Normal 6.6-10.1 [facility] Comment on above: Performed By: #### C DT #### [address] Platelets (Bld) [#/Vol] 157 10*3/uL Normal 150-450 [facility] Comment on above: Performed By: #### C DT #### [address] RBC (Bld) [#/Vol] 3.54 10*6/uL Low 3.90-5.60 [facility] Comment on above: Performed By: #### C DT #### [address] WBC (Bld) [#/Vol] 6.9 10*3/uL Normal 4.1-10.5 [facility] Comment on above: Performed By: #### C DT #### [address] White Blood Count 6.9 [CFU]/mL Normal 4.1-10.5 [facility] Comment on above: Performed By: #### C DT #### [address] Comprehensive Metabolic Pane patricio 07-22-2025 Albumin [Mass/Vol] 3.4 g/dL Low 3.5-5.7 [facility] Comment on above: Order Comment: per r n isaias. arr 0851. Performed By: #### G LULS #### Point of Care testing , Albumin/Globulin [Mass ratio] 1.5 {ratio} Normal [facility] Comment on above: Order Comment: per r n isaias. arr 0851. Performed By: #### G LULS #### Point of Care testing , ALP [Catalytic activity/Vol] 73 U/L Normal 34-104 [facility] Comment on above: Order Comment: per r n isaias. arr 0851. Performed By: #### G LULS #### Point of Care testing , ALT [Catalytic activity/Vol] 15 U/L Normal 7-52 [facility] Comment on above: Order Comment: per r n isaias. arr 0851. Performed By: #### G LULS #### Point of Care testing , Anion gap [Moles/Vol] 6.6 mmol/L Normal 6.0-15.0 [facility] Comment on above: Order Comment: per r n isaias. arr 0851. Performed By: #### G LULS #### Point of Care testing , AST [Catalytic activity/Vol] 22 U/L Normal 13-39 [facility] Comment on above: Order Comment: per r n isaias. arr 0851. Performed By: #### G LULS #### Point of Care testing , Bilirubin [Mass/Vol] 0.6 mg/dL Normal 0.3-1.0 [facility] Comment on above: Order Comment: per r n isaias. arr 0851. Performed By: #### G LULS #### Point of Care testing , Calcium [Mass/Vol] 8.5 mg/dL Low 8.6-10.3 [facility] Comment on above: Order Comment: per r n isaias. arr 0851. Performed By: #### G LULS #### Point of Care testing , Chloride [Moles/Vol] 101 mmol/L Normal 98-107 [facility] Comment on above: Order Comment: per r n isaias. arr 0851. Performed By: #### G LULS #### Point of Care testing , CO2 [Moles/Vol] 27.1 mmol/L Normal 21.0-31.0 [facility] Comment on above: Order Comment: per joyce esparza. arr 0851. Performed By: #### G LULS #### Point of Care testing , Creatinine [Mass/Vol] 0.83 mg/dL Normal 0.70-1.30 [facility] Comment on above: Order Comment: per joyce esparza. arr 0851. Performed By: #### G LULS #### Point of Care testing , Creatinine Clr Calc Pharmacy 71.82 Normal [facility] Comment on above: Order Comment: per joyce esparza. arr 0851. Result Comment: PERF ORMED BY: [facility] [place] [address] PATHOLOGIST [employer] MARIAM WANG M.D. Performed By: #### G LULS #### Point of Care testing , GFR/1.73 sq M.predicted MDRD (S/P/Bld) [Vol rate/Area] mL/min/{1.73_m2} Normal [facility] Comment on above: Order Comment: per joyce espazra. arr 0851. Performed By: #### G LULS #### Point of Care testing , Globulin (S) [Mass/Vol] 2.3 g/dL Normal [facility] Comment on above: Order Comment: per joyce esparza. arr 0851. Performed By: #### G LULS #### Point of Care testing , Glucose [Mass/Vol] 116 mg/dL High 70-100 [facility] Comment on above: Order Comment: per joyce esparza. arr 0851. Result Comment: [facility] Glucose Reference Range is dependent on time and content of last meal. Glucose of more than 200 mg/dL in a nonstressed, ambulatory subject supports the diagnosis of Diabetes Mellitus. ADA recommended reference range Performed By: #### G LULS #### Point of Care testing , Potassium [Moles/Vol] 3.7 mmol/L Normal 3.5-5.1 [facility] Comment on above: Order Comment: per joyce esparza. arr 0851. Performed By: #### G LULS #### Point of Care testing , Protein [Mass/Vol] 5.7 g/dL Low 6.4-8.9 [facility] Comment on above: Order Comment: per joyce esparza. arr 0851. Performed By: #### G LULS #### Point of Care testing , Sodium [Moles/Vol] 131 mmol/L Low 136-145 [facility] Comment on above: Order Comment: per r romina esparza. arr 0851. Performed By: #### G LULS #### Point of Care testing , Urea nitrogen [Mass/Vol] 12 mg/dL Normal 7-25 [facility] Comment on above: Order Comment: per joyce esparza. arr 0851. Performed By: #### G LULS #### Point of Care testing , Glucose Poct Glucometerson 0 07-22-2025 Glucose [Mass/Vol] 168 mg/dL Normal [facility] Comment on above: Result Comment: [facility] Glucose Reference Range is dependent on time and content of last meal. Glucose of more than 200 mg/dL in a nonstressed, ambulatory subject supports the diagnosis of Diabetes Mellitus. PERFORMED BY: [place] [id number] PATHOLOGIST [employer] TWISTER MARIAM WANG M.D. Performed By: #### G LULS #### Point of Care testing , Glucose [Mass/Vol] 70 mg/dL Normal [facility] Comment on above: Result Comment: [facility] Glucose Reference Range is dependent on time and content of last meal. Glucose of more than 200 mg/dL in a nonstressed, ambulatory subject supports the diagnosis of Diabetes Mellitus. PERFORMED BY: [address] [address] PATHOLOGIST [employer] TWISTER MARIAM WANG M.D. Performed By: #### G LULS #### Point of Care testing , Glucose [Mass/Vol] 94 mg/dL Normal [facility] Comment on above: Result Comment: [place] [facility] Glucose Reference Range is dependent on time and content of last meal. Glucose of more than 200 mg/dL in a nonstressed, ambulatory subject supports the diagnosis of Diabetes Mellitus. PERFORMED BY: [place] [address] PATHOLOGIST [employer] TWISTER MARIAM WANG M.D. Performed By: #### C DT #### [address] Glucose [Mass/Vol] 86 mg/dL Normal [facility] Comment on above: Result Comment: [place] om Glucose Reference Range is dependent on time and content of last meal. Glucose of more than 200 mg/dL in a nonstressed, ambulatory subject supports the diagnosis of Diabetes Mellitus. PERFORMED BY: [place] [address] PATHOLOGIST [employer] TWISTER MARIAM WANG M.D. Performed By: #### C DT #### [address] Glucose [Mass/Vol] 63 mg/dL Normal [facility] Comment on above: Result Comment: [place] [facility] Glucose Reference Range is dependent on time and content of last meal. Glucose of more than 200 mg/dL in a nonstressed, ambulatory subject supports the diagnosis of Diabetes Mellitus. PERFORMED BY: [place] [address] PATHOLOGIST [employer] TWISTER MARIAM WANG M.D. Performed By: #### G JEREMY #### Point of Care testing , Vancomycin,Troughon 07-22-20 25 Vancomycin,Trough 12.0 Normal 10.0-20.0 [facility] Comment on above: Order Comment: > or = to 3 loose/watery stools in the last 24 HRS? Y Is patient on promotility agents or tube feeding? N Result Comment: Last dose: - PERFORMED BY: [place] [id number] PATHOLOGIST Y[employer] TWISTER MARIAM WANG M.D. Performed By: #### C DT #### [address] [address] [place] C-Reactive Proteinon 025 C-Reactive Protein 12.1 mg/dL High 0.0-0.5 [facility] Comment on above: Result Comment: PERF ORMED BY: [place] [address] PATHOLOGIST [employer] TWISTER MARIAM WANG M.D. Performed By: #### C DT #### [facility] [address] [place] [address] CRP [Mass/Vol]on 07-21-2025 C-REACTIVE PROTEIN 12.1 mg/dL High 0.0 - 0.5 mg/dL [facility] Interpretation and review of laboratory results Abnormal [facility] Healthcare [facility] Healthcar e CT angio abdomen pelvison CT angio abdomen pelvis [facility] Main [place] [address] [place] [address] CT Scan Report Signed Patient: Dariel Zabala MR#: [id number] 9 : 1940 Acct:[id number] Age/Sex: 85 / M ADM Date: 07/19/25 Loc: Room: [address] [place] [address] Type: ADM IN Attending Dr: Thalia Cervantes [...] Jr., D.O. 07/21/2025 1:05 PM Dictation Location: [facility]18 Transcribed By: [facility] 07/21/25 1305 Dictated By: Dariel Gooden Jr, DO 07/21/25 1258 Signed By: 07/21/25 1305 Normal [facility] Complete Blood Count Auto Di ffon 07-21-2025 Basophils (Bld) [#/Vol] 0.0 10*3/uL Normal 0.0-0.2 [facility] Comment on above: Result Comment: PERF ORMED BY: [address] [address] PATHOLOGIST [employer] TWISTER MARIAM WANG M.D. Performed By: #### C MP, MG, CBC #### [address] [address] [facility] Basophils/100 WBC (Bld) 0.4 % Normal . [facility] Comment on above: Performed By: #### C MP, MG, CBC #### [place] [address] Eosinophils (Bld) [#/Vol] 0.1 10*3/uL Normal 0.0-0.45 [facility] Comment on above: Performed By: #### C MP, MG, CBC #### [address] Eosinophils/100 WBC (Bld) 1.8 % Normal . [facility] Comment on above: Performed By: #### C MP, MG, CBC #### [address] Erythrocyte distribution width (RBC) [Ratio] 13.9 % Normal 12.0-14.8 [facility] Comment on above: Performed By: #### C MP, MG, CBC #### [address] Hematocrit (Bld) [Volume fraction] 34.5 % Low 38.8-50.0 [facility] Comment on above: Performed By: #### C MP, MG, CBC #### [address] Hemoglobin (Bld) [Mass/Vol] 12.1 g/dL Low 13.0-17.0 [facility] Comment on above: Performed By: #### C MP, MG, CBC #### [address] Lymphocytes (Bld) [#/Vol] 0.9 10*3/uL Low 1.00-4.8 [facility] Comment on above: Performed By: #### C MP, MG, CBC #### [address] Lymphocytes/100 WBC (Bld) 13.4 % Normal . [facility] Comment on above: Performed By: #### C MP, MG, CBC #### [address] MCH (RBC) [Entitic mass] 31.9 pg Normal 27.5-35.2 [facility] Comment on above: Performed By: #### C MP, MG, CBC #### [facility] [address] MCV (RBC) [Entitic vol] 91.1 fL Normal 83.5-101 [facility] Comment on above: Performed By: #### C MP, MG, CBC #### [address] Mean Corpuscular HGB Conc 35.0 g/dL Normal 32.5-35.6 [facility] Comment on above: Performed By: #### C MP, MG, CBC #### [address] Monocytes (Bld) [#/Vol] 0.5 10*3/uL Normal 0.0-0.8 [facility] Comment on above: Performed By: #### C MP, MG, CBC #### [address] Monocytes/100 WBC (Bld) 7.1 % Normal . [facility] Comment on above: Performed By: #### C MP, MG, CBC #### [place] [address] [place] Neutrophils (Bld) [#/Vol] 5.0 10*3/uL Normal 1.8-7.7 [facility] Comment on above: Performed By: #### C MP, MG, CBC #### [place] [address] [place] Neutrophils/100 WBC (Bld) 77.3 % Normal . [facility] Comment on above: Performed By: #### C MP, MG, CBC #### [place] [address] [place] NRBC% 0.1 /100{WBC} Normal 0-0.5 [facility] Comment on above: Performed By: #### C MP, MG, CBC #### [address] Platelet mean volume (Bld) [Entitic vol] 8.9 fL Normal 6.6-10.1 [facility] Comment on above: Performed By: #### C MP, MG, CBC #### [address] Platelets (Bld) [#/Vol] 136 10*3/uL Low 150-450 [facility] Comment on above: Performed By: #### C MP, MG, CBC #### [address] RBC (Bld) [#/Vol] 3.79 10*6/uL Low 3.90-5.60 [facility] Comment on above: Performed By: #### C MP, MG, CBC #### [address] WBC (Bld) [#/Vol] 6.5 10*3/uL Normal 4.1-10.5 [facility] Comment on above: Performed By: #### C MP, MG, CBC #### [address] White Blood Count 6.5 [CFU]/mL Normal 4.1-10.5 [facility] Comment on above: Performed By: #### C MP, MG, CBC #### [address] Comprehensive Metabolic Pane patricio 07-21-2025 Albumin [Mass/Vol] 3.4 g/dL Low 3.5-5.7 [facility] Comment on above: Performed By: #### C MP, MG, CBC #### [address] Albumin/Globulin [Mass ratio] 1.4 {ratio} Normal [facility] Comment on above: Performed By: #### C MP, MG, CBC #### [address] ALP [Catalytic activity/Vol] 62 U/L Normal 34-104 [facility] Comment on above: Performed By: #### C MP, MG, CBC #### [address] ALT [Catalytic activity/Vol] 10 U/L Normal 7-52 [facility] Comment on above: Performed By: #### C MP, MG, CBC #### [facility] [address] [place] [address] [place] Anion gap [Moles/Vol] 7.7 mmol/L Normal 6.0-15.0 [facility] Comment on above: Performed By: #### C MP, MG, CBC #### [facility] [address] [place] [address] [place] AST [Catalytic activity/Vol] 14 U/L Normal 13-39 [facility] Comment on above: Performed By: #### C MP, MG, CBC #### [facility] [address] [place] [address] [place] Bilirubin [Mass/Vol] 1.1 mg/dL High 0.3-1.0 [facility] Comment on above: Performed By: #### C MP, MG, CBC #### [facility] [address] [place] [address] [place] Calcium [Mass/Vol] 8.4 mg/dL Low 8.6-10.3 [facility] Comment on above: Performed By: #### C MP, MG, CBC #### [facility] [address] [place] [address] [place] Chloride [Moles/Vol] 102 mmol/L Normal 98-107 [facility] Comment on above: Performed By: #### C MP, MG, CBC #### [facility] [address] [place] [address] [place] CO2 [Moles/Vol] 26.2 mmol/L Normal 21.0-31.0 [facility] Comment on above: Performed By: #### C MP, MG, CBC #### [facility] [address] [place] [address] [place] Creatinine [Mass/Vol] 0.88 mg/dL Normal 0.70-1.30 [facility] Comment on above: Performed By: #### C MP, MG, CBC #### [facility] [address] [place] [address] [place] Creatinine Clr Calc Pharmacy 67.74 Normal [facility] Comment on above: Performed By: #### C MP, MG, CBC #### [facility] [address] [place] [address] [place] GFR/1.73 sq M.predicted MDRD (S/P/Bld) [Vol rate/Area] mL/min/{1.73_m2} Normal [facility] Comment on above: Performed By: #### C MP, MG, CBC #### [place] [address] [place] Globulin (S) [Mass/Vol] 2.5 g/dL Normal [facility] Comment on above: Performed By: #### C MP, MG, CBC #### [address] Glucose [Mass/Vol] 92 mg/dL Normal 70-100 [facility] Comment on above: Result Comment: [place] Glucose Reference Range is dependent on time and content of last meal. Glucose of more than 200 mg/dL in a nonstressed, ambulatory subject supports the diagnosis of Diabetes Mellitus. ADA recommended reference range Performed By: #### C MP, MG, CBC #### [address] Potassium [Moles/Vol] 3.9 mmol/L Normal 3.5-5.1 [facility] Comment on above: Performed By: #### C MP, MG, CBC #### [address] Protein [Mass/Vol] 5.9 g/dL Low 6.4-8.9 [facility] Comment on above: Performed By: #### C MP, MG, CBC #### [address] Sodium [Moles/Vol] 132 mmol/L Low 136-145 [facility] Comment on above: Performed By: #### C MP, MG, CBC #### [address] Urea nitrogen [Mass/Vol] 12 mg/dL Normal 7-25 [facility] Comment on above: Performed By: #### C MP, MG, CBC #### [address] Glucose Poct Glucometerson 0 07-21-2025 Glucose [Mass/Vol] 70 mg/dL Normal [facility] Comment on above: Result Comment: [place] om Glucose Reference Range is dependent on time and content of last meal. Glucose of more than 200 mg/dL in a nonstressed, ambulatory subject supports the diagnosis of Diabetes Mellitus. PERFORMED BY: [place] [address] PATHOLOGIST [employer]ARN TWISTER MARIAM WANG M.D. Performed By: #### C DT #### [address] Glucose [Mass/Vol] 131 mg/dL Normal [facility] Comment on above: Result Comment: [place] om Glucose Reference Range is dependent on time and content of last meal. Glucose of more than 200 mg/dL in a nonstressed, ambulatory subject supports the diagnosis of Diabetes Mellitus. PERFORMED BY: [place] [address] PATHOLOGIST YARN TWISTER MARIAM WANG M.D. Performed By: #### V ANCP #### [address] Glucose [Mass/Vol] 152 mg/dL Normal [facility] Comment on above: Result Comment: [place] om Glucose Reference Range is dependent on time and content of last meal. Glucose of more than 200 mg/dL in a nonstressed, ambulatory subject supports the diagnosis of Diabetes Mellitus. PERFORMED BY: [place] [address] PATHOLOGIST YARN TWISTER MARIAM WANG M.D. Performed By: #### G LULS #### Point of Care testing , Glucose [Mass/Vol] 89 mg/dL Normal [facility] Comment on above: Result Comment: [place] om Glucose Reference Range is dependent on time and content of last meal. Glucose of more than 200 mg/dL in a nonstressed, ambulatory subject supports the diagnosis of Diabetes Mellitus. PERFORMED BY: [address] [place] [address] PATHOLOGIST YARN TWISTER MARIAM WANG M.D. Performed By: #### G LULS #### Point of Care testing , Magnesiumon 07-21-2025 Magnesium [Mass/Vol] 1.9 mg/dL Normal 1.9-2.7 [facility] Comment on above: Result Comment: PERF ORMED BY: [place] [phone] PATHOLOGIST YARN TWISTER MARIAM WANG M.D. Performed By: #### C MP, MG, CBC #### [facility] [address] [place] [address] Vancomycin,Peakon 07-21-2025 Vancomycin,Peak 23.0 Normal 20.0-40.0 [facility] Comment on above: Order Comment: > or = to 3 loose/watery stools in the last 24 HRS? Y Is patient on promotility agents or tube feeding? N Result Comment: Last dose: - PERFORMED BY: [place] [phone] PATHOLOGIST YARN TWISTER MARIAM WANG M.D. Performed By: #### C DT #### [address] Vancomycin,Peak 18.4 Low 20.0-40.0 [facility] Comment on above: Order Comment: Comme nt ?DRAW 1 HOUR AFTER INFUSION COMPLETES Date of last dose?: [id number] Time of last dose?: 0200 Result Comment: Last dose: - PERFORMED BY: [place] [phone] PATHOLOGIST YARN TWISTER MARIAM WANG M.D. Performed By: #### V ANCP #### [address] C-Reactive Proteinon 025 C-Reactive Protein 11.5 mg/dL High 0.0-0.5 [facility] Comment on above: Result Comment: PERF ORMED BY: [place] [address] PATHOLOGIST YARN TWISTER MARIAM WANG M.D. Performed By: #### V ANCP #### [address] Clostridium Difficileon Clostridium Difficile Negative Normal Negative [facility] Comment on above: Order Comment: > or = to 3 loose/watery stools in the last 24 HRS? Y Is patient on promotility agents or tube feeding? N Result Comment: Test ing performed by RT-PCR PERFORMED BY: [place] [address] PATHOLOGIST YARN TWISTER MARIAM WANG M.D. Performed By: #### C DT #### [address] Coagulation Profileon 2024 aPTT Coag (Bld) [Time] 34.7 s Normal 25.1-36.5 [facility] Comment on above: Result Comment: A he matocrit value greater than 55% may lead to inaccurate results in coagulation testing. Patients having hematocrit values >55% require a special collection tube for coagulation studies. Please contact the laboratory at [phone] for redraw instructions. PERFORMED BY: [place] [address] PATHOLOGIST YARN TWISTER MARIAM WANG M.D. Performed By: #### V ANCP #### [address] INR Coag (PPP) [Relative time] 1.5 {INR} Normal [facility] Comment on above: Result Comment: [...] 4.5 Performed By: #### V ANCP #### [address] PT Coag (PPP) [Time] 16.6 s High 9.0-12.9 [facility] Comment on above: Result Comment: A he matocrit value greater than 55% may lead to inaccurate results in coagulation testing. Patients having hematocrit values >55% require a special collection tube for coagulation studies. Please contact the laboratory at [phone] for redraw instructions. Performed By: #### V ANCP #### [address] Complete Blood Count Auto Di ffon 07-20-2025 Basophils (Bld) [#/Vol] 0.0 10*3/uL Normal 0.0-0.2 [facility] Comment on above: Performed By: #### V ANCP #### [address] Basophils/100 WBC (Bld) 0.3 % Normal . [facility] Comment on above: Performed By: #### V ANCP #### [address] Eosinophils (Bld) [#/Vol] 0.0 10*3/uL Normal 0.0-0.45 [facility] Comment on above: Performed By: #### V ANCP #### [address] Eosinophils/100 WBC (Bld) 0.3 % Normal . [facility] Comment on above: Performed By: #### V ANCP #### [address] Erythrocyte distribution width (RBC) [Ratio] 13.9 % Normal 12.0-14.8 [facility] Comment on above: Performed By: #### V ANCP #### [address] Hematocrit (Bld) [Volume fraction] 36.3 % Low 38.8-50.0 [facility] Comment on above: Performed By: #### V ANCP #### [address] Hemoglobin (Bld) [Mass/Vol] 12.6 g/dL Low 13.0-17.0 [facility] Comment on above: Performed By: #### V ANCP #### [address] Lymphocytes (Bld) [#/Vol] 0.9 10*3/uL Low 1.00-4.8 [facility] Comment on above: Performed By: #### V ANCP #### [address] Lymphocytes/100 WBC (Bld) 9.4 % Normal . [facility] Comment on above: Performed By: #### V ANCP #### [address] MCH (RBC) [Entitic mass] 31.9 pg Normal 27.5-35.2 [facility] Comment on above: Performed By: #### V ANCP #### [address] MCV (RBC) [Entitic vol] 91.8 fL Normal 83.5-101 [facility] Comment on above: Performed By: #### V ANCP #### [address] Mean Corpuscular HGB Conc 34.8 g/dL Normal 32.5-35.6 [facility] Comment on above: Performed By: #### V ANCP #### [address] Monocytes (Bld) [#/Vol] 0.5 10*3/uL Normal 0.0-0.8 [facility] Comment on above: Performed By: #### V ANCP #### [address] Monocytes/100 WBC (Bld) 5.6 % Normal . [facility] Comment on above: Performed By: #### V ANCP #### [address] Neutrophils (Bld) [#/Vol] 7.9 10*3/uL High 1.8-7.7 [facility] Comment on above: Performed By: #### V ANCP #### [facility] [address] [place] [address] [place] Neutrophils/100 WBC (Bld) 84.4 % Normal . [facility] Comment on above: Performed By: #### V ANCP #### [facility] [address] [place] [address] [facility] NRBC% 0.1 /100{WBC} Normal 0-0.5 [facility] Comment on above: Performed By: #### V ANCP #### [address] [address] [facility] Platelet mean volume (Bld) [Entitic vol] 9.3 fL Normal 6.6-10.1 [facility] Comment on above: Performed By: #### V ANCP #### [address] [address] [place] Platelets (Bld) [#/Vol] 138 10*3/uL Low 150-450 [facility] Comment on above: Performed By: #### V ANCP #### [address] [address] [place] RBC (Bld) [#/Vol] 3.96 10*6/uL Normal 3.90-5.60 [facility] Comment on above: Performed By: #### V ANCP #### [place] [id number] [place] WBC (Bld) [#/Vol] 9.3 10*3/uL Normal 4.1-10.5 [facility] Comment on above: Performed By: #### V ANCP #### [place] [id number] [facility] White Blood Count 9.3 [CFU]/mL Normal 4.1-10.5 [facility] Comment on above: Performed By: #### V ANCP #### [address] [address] [facility] Comprehensive Metabolic Pane patricio 07-20-2025 Albumin [Mass/Vol] 3.6 g/dL Normal 3.5-5.7 [facility] Comment on above: Performed By: #### V ANCP #### [address] Albumin/Globulin [Mass ratio] 1.6 {ratio} Normal [facility] Comment on above: Performed By: #### V ANCP #### [place] [id number] [facility] ALP [Catalytic activity/Vol] 69 U/L Normal 34-104 [facility] Comment on above: Performed By: #### V ANCP #### [place] [id number] [facility] ALT [Catalytic activity/Vol] 12 U/L Normal 7-52 [facility] Comment on above: Performed By: #### V ANCP #### [address] Anion gap [Moles/Vol] 10.3 mmol/L Normal 6.0-15.0 [facility] Comment on above: Performed By: #### V ANCP #### [place] [id number] [facility] AST [Catalytic activity/Vol] 17 U/L Normal 13-39 [facility] Comment on above: Performed By: #### V ANCP #### [address] Bilirubin [Mass/Vol] 1.5 mg/dL High 0.3-1.0 [facility] Comment on above: Result Comment: [facility] who have taken Naproxen have shown spurious elevation in Total Bilirubin levels. A metabolite of Naproxen, O-desmethylnaproxen, has been shown to interfere with the Jendrassik-Grof method for measuring Total Bilirubin. Performed By: #### V ANCP #### [address] Calcium [Mass/Vol] 8.7 mg/dL Normal 8.6-10.3 [facility] Comment on above: Performed By: #### V ANCP #### [address] [place] [address] [place] Chloride [Moles/Vol] 100 mmol/L Normal 98-107 [facility] Comment on above: Performed By: #### V ANCP #### [address] CO2 [Moles/Vol] 27.2 mmol/L Normal 21.0-31.0 [facility] Comment on above: Performed By: #### V ANCP #### [address] Creatinine [Mass/Vol] 0.88 mg/dL Normal 0.70-1.30 [facility] Comment on above: Performed By: #### V ANCP #### [address] Creatinine Clr Calc Pharmacy 67.65 Normal [facility] Comment on above: Performed By: #### V ANCP #### [address] GFR/1.73 sq M.predicted MDRD (S/P/Bld) [Vol rate/Area] mL/min/{1.73_m2} Normal [facility] Comment on above: Performed By: #### V ANCP #### [address] Globulin (S) [Mass/Vol] 2.3 g/dL Normal [facility] Comment on above: Performed By: #### V ANCP #### [address] Glucose [Mass/Vol] 115 mg/dL High 70-100 [facility] Comment on above: Result Comment: [place] Glucose Reference Range is dependent on time and content of last meal. Glucose of more than 200 mg/dL in a nonstressed, ambulatory subject supports the diagnosis of Diabetes Mellitus. ADA recommended reference range Performed By: #### V ANCP #### [address] Potassium [Moles/Vol] 4.5 mmol/L Normal 3.5-5.1 [facility] Comment on above: Performed By: #### V ANCP #### [address] Protein [Mass/Vol] 5.9 g/dL Low 6.4-8.9 [facility] Comment on above: Performed By: #### V ANCP #### [address] Sodium [Moles/Vol] 133 mmol/L Low 136-145 [facility] Comment on above: Performed By: #### V ANCP #### [facility] [address] [place] [address] Urea nitrogen [Mass/Vol] 11 mg/dL Normal 7-25 [facility] Comment on above: Performed By: #### V ANCP #### [address] ECH echo transthoracicon ECH echo transthoracic [facility] Main [place] [address] [place] [address] Echocardiogram Signed Patient: Dariel Zabala MR#: [id number] 9 : 1940 Acct:[id number] Age/Sex: 85 / M ADM Date: 07/19/25 Loc: Room: [address] [place] [address] Type: ADM IN Attending Dr: Thalia Cervantes MD Ordering Provider: Emilio Tate DO, RES Date of Service: 07/19/2504/07/1852 ECH/ECH echo transthoracic: R/o endocarditis Copies to: MD Emilio Dickinson DO, RES J 12:01 PM Patient Location: : 1940 Gender: Male (MM/DD/YYYY) Age: 85 Years Ordering Physician: Emilio Tate Height: 71 in Weight: 165.788 lb Performed By: Flip Marshall RDCS, T BSA: 1.95 m2 BP: 124 / 72 [...] content not included)... Normal [facility] Erythrocyte Sedimentation Ra lisa 07-20-2025 ESR (Bld) [Velocity] 16 mm/h Normal 0-19 [facility] Comment on above: Result Comment: PERF ORMED BY: [facility] [address] [place] [address] PATHOLOGIST YARN TWISTER MARIAM WANG M.D. Performed By: #### G LULS #### Point of Care testing , Glucose Poct Glucometerson 0 07-20-2025 Glucose [Mass/Vol] 171 mg/dL Normal [facility] Comment on above: Result Comment: [facility] Glucose Reference Range is dependent on time and content of last meal. Glucose of more than 200 mg/dL in a nonstressed, ambulatory subject supports the diagnosis of Diabetes Mellitus. PERFORMED BY: [facility] [address] [place] [address] PATHOLOGIST YARN TWISTER MARIAM WANG M.D. Performed By: #### G LULS #### Point of Care testing , Glucose [Mass/Vol] 81 mg/dL Normal [facility] Comment on above: Result Comment: [place] om Glucose Reference Range is dependent on time and content of last meal. Glucose of more than 200 mg/dL in a nonstressed, ambulatory subject supports the diagnosis of Diabetes Mellitus. PERFORMED BY: [place] [address] PATHOLOGIST YARN TWISTER MARIAM WANG M.D. Performed By: #### V ANCP #### [address] Glucose [Mass/Vol] 184 mg/dL Normal [facility] Comment on above: Result Comment: [place] om Glucose Reference Range is dependent on time and content of last meal. Glucose of more than 200 mg/dL in a nonstressed, ambulatory subject supports the diagnosis of Diabetes Mellitus. PERFORMED BY: [place] [address] PATHOLOGIST YARN TWISTER MARIAM WANG M.D. Performed By: #### V ANCP #### [address] Glucose [Mass/Vol] 115 mg/dL Normal [facility] Comment on above: Result Comment: [place] om Glucose Reference Range is dependent on time and content of last meal. Glucose of more than 200 mg/dL in a nonstressed, ambulatory subject supports the diagnosis of Diabetes Mellitus. PERFORMED BY: [place] [address] PATHOLOGIST YARN TWISTER MARIAM WANG M.D. Performed By: #### V ANCP #### [address] Magnesiumon 07-20-2025 Magnesium [Mass/Vol] 1.7 mg/dL Low 1.9-2.7 [facility] Comment on above: Performed By: #### V ANCP #### [address] A1C with Estimated Average G luon 07-19-2025 Glucose [Mass/Vol] 131 mg/dL Normal [facility] Comment on above: Result Comment: PERF ORMED BY: [address] [place] [address] PATHOLOGIST YARN TWISTER MARIAM WANG M.D. Performed By: #### V ANCP #### [address] HbA1c (Bld) [Mass fraction] 6.2 % High 4.3-5.6 [facility] Comment on above: Result Comment: Incr eased risk for diabetes: 5.7 - 6.4 diabetes: >6.4 glycemic control for adults with diabetes: <7.0 Performed By: #### V ANCP #### [address] Glucose Poct Glucometerson 0 07-19-2025 Glucose [Mass/Vol] 112 mg/dL Normal [facility] Comment on above: Result Comment: [facility] Glucose Reference Range is dependent on time and content of last meal. Glucose of more than 200 mg/dL in a nonstressed, ambulatory subject supports the diagnosis of Diabetes Mellitus. PERFORMED BY: [place] [address] PATHOLOGIST YARN TWISTER MARIAM WANG M.D. Performed By: #### G LULS #### Point of Care testing , [facility] 07-17-20 [facility] Case Information Case Priority: None Programs: -- Referral Source: Non Licensed Nuclear Plant Operator Referral Reason: Care coordination Case Type: Transition [...] (min): 7 Outcome: Case discussion Contact Type: blending coordinator Contact Name: Ania Crews Notes: See [...] return call. Created By: Alec Rodrigez Normal [facility] Sodiumon 07-12-2025 Sodium [Moles/Vol] 131 mmol/L Low 135-145 [facility] Comment on above: Performed By: #### 2 [id number] #### [facility] Laboratory [address] [place] [address] Ambulatory Visit Summaryon 0 07-11-2025 Ambulatory Visit [...] EDT With: YANIQUE MCNEILL CNP Where: [address] [id number] 8:00 AM EDT With: Where: [address] [address]- Medications What How Much When [...] disease BMI 23.0-23.9, adult Nonsmoker Natural Lemon Chitimacha flavor Contact prescribing physician if questions or [...] for Prop (more content not included)... Normal [facility] Family Medicine Office/Clini c Noteon 07-11-2025 Family Medicine Office/Clinic Note Family Medicine Office/Clinic Note Chief Complaint TCM visit The patient presents for medication management and sodium level evaluation. HPI Staff Pt presents today for TCM visit. Hospital: [facility] Admission date: 06/17/25 Discharge date: 06/23/25 Symptoms the patient presented with: CVA & Low Sodium Current concerns: Concerned with medications. History of Present Illness 85-year-old male presenting with his for a TCM appointment following discharge from the [facility]. He is here for sodium level evaluation [...] qualifying data available Patient Education Stroke Prevention, Cycb-bn-Lucy Problem List/Past Medical History Ongoing ASCVD (arteriosclerotic [...] mg Cap-DR, (more content not included)... Normal [facility] Comment on above: Result Comment: Elec tronically Signed By: YANIQUE MCNEILL CNP\.br\Date and Time Signed: 07/11/25 15:05 EDT [facility] 07-08-20 [facility] Case Information Case Priority: None Programs: -- Referral Source: Non Licensed Nuclear Plant Operator Referral Reason: Care coordination Case Type: Transition Care Management Risk Score: -- Case Status: Enrolled (July 08, 2025) Date Assigned: July 05, 2025 Assigned By: Alec Rodrigez Date Enrolled: July 08, 2025 Assigned Primary Personnel: Alec Rodrigez Assigned Secondary Personnel: -- Case Physician: AYNIQUE MCNEILL CNP Problems Ongoing ASCVD (arteriosclerotic cardiovascular [...] to bed at 2100, get up around [id number], sleep through the night Are you having [...] follow up. Patient was admitted to [facility] for CVA and low sodium [...] good.' (more content not included)... Normal [facility] Medicine Office/Clini c Noteon 07-04-2025 Family Medicine [...] and is currently under transitional care. A senior resident care director is expected to contact the patient to [...] No qualifying data available Patient Education Hyponatremia, Guyl-rp-Bqyp Problem List/Past Medical History Ongoing ASCVD (arteriosclerotic [...] influenza virus vaccine, inactivated 08/02/2014 Recorded Normal [facility] Comment on above: Result Comment: Elec tronically Signed By: YANIQUE MCNEILL CNP\.br\Date and Time Signed: 07/04/25 14:55 EDT Basic Metabolic Panelon 06-14 Anion gap [Moles/Vol] 7 mmol/L 5 - 15 mmol/L [facility] Calcium [Mass/Vol] 9.9 mg/dL 8.5 - 10. 5 mg/dL [facility] Chloride [Moles/Vol] 95 mmol/L Low 98 - 10 9 mmol/L [facility] CO2 [Moles/Vol] 31 mmol/L 22 - 32 mmol/L [facility] Creatinine [Mass/Vol] 0.8 mg/dL 0.60 - 1.30 mg/dL [facility] Comment on above: METHOD TRACEABLE TO IDMS STANDARD EGFR Non-Race Dependent 88 - PINF [facility] Comment on above: Reported eGFR is bas ed on the CKD-EPI 2020 equation that does not use a race coefficient. Glucose [Mass/Vol] 101 mg/dL High 65 - 99 mg/dL [facility] Potassium [Moles/Vol] 4.5 mmol/L 3.5 - 5.0 mmol/L [facility] Sodium [Moles/Vol] 133 mmol/L Low 134 - 146 mmol/L [facility] Urea nitrogen [Mass/Vol] 29 mg/dL High 5 - 27 mg/dL [facility] CBC auto differentialon 06-14 Basophils (Bld) [#/Vol] 0.1 10*3/uL 0.0 - 0.2 10*3/uL [facility] Basophils/100 WBC (Bld) 1.5 % [facility] Differential cell count method Nom (Bld) AUTOMATED DIFFERENTIAL [facility] Eosinophils (Bld) [#/Vol] 0.1 10*3/uL 0.0 - 0.4 10*3/uL [facility] Eosinophils/100 WBC (Bld) 3 % [facility] Erythrocyte distribution width (RBC) [Ratio] 13.8 % 11.5 - 15 % [facility] Hematocrit (Bld) [Volume fraction] 40 % 39 - 50 % [facility] Hemoglobin (Bld) [Mass/Vol] 13.8 g/dL 13 - 17 g/dL [facility] Lymphocytes (Bld) [#/Vol] 1.5 10*3/uL 1.0 - 3.5 10*3/uL [facility] Lymphocytes/100 WBC (Bld) 34.7 % [facility] MCH (RBC) [Entitic mass] 31.3 pg 27 - [address] [facility] MCHC (RBC) [Mass/Vol] 34.5 g/dL 32 - 3 6 g/dL [facility] MCV (RBC) [Entitic vol] 91 fL 80 - [address] [facility] Monocytes (Bld) [#/Vol] 0.4 10*3/uL 0.0 - 0.9 10*3/uL [facility] Monocytes/100 WBC (Bld) 10.2 % [facility] Neutrophils (Bld) [#/Vol] 2.1 10*3/uL 1.5 - 6.6 10*3/uL [facility] Neutrophils/100 WBC (Bld) 50.6 % [facility] Platelet mean volume (Bld) [Entitic vol] 9.5 fL 7 - 12 fL [facility] Platelets (Bld) [#/Vol] 234 10*3/uL [facility] RBC (Bld) [#/Vol] 4.4 10*6/uL [facility] WBC LM Ql (Sput) 4.[address] [facility] ECG 12 Leadon 06-23-2025 TRACEMASTERVUE [facility] Electrolyte panelon 06-23-20 Anion gap [Moles/Vol] 10 mmol/L 5 - 15 mmol/L [facility] Chloride [Moles/Vol] 96 mmol/L Low 98 - 10 9 mmol/L [facility] CO2 [Moles/Vol] 27 mmol/L 22 - 32 mmol/L [facility] Interpretation and review of laboratory results Abnormal [facility] Potassium [Moles/Vol] 4.2 mmol/L 3.5 - 5.0 mmol/L [facility] Sodium [Moles/Vol] 133 mmol/L Low 134 - 146 mmol/L [facility] Ionized calciumon 06-23-2025 Calcium.ionized ISE [Moles/Vol] 5.1 mg/dL 4.5 - 5.3 mg/dL [facility] Interpretation and review of laboratory results Normal [facility] Magnesiumon 06-23-2025 Magnesium [Mass/Vol] 1.6 mg/dL Low 1.8 - 2 .6 mg/dL [facility] No Panel Informationon 06-23 Interpretation and review of laboratory results Abnormal [facility] Phosphoruson 06-23-2025 Interpretation and review of laboratory results Normal [facility] Phosphate [Mass/Vol] 3.5 mg/dL 2.4 - 4 .9 mg/dL [facility] Protime & INROrdered By: Lucy Branham on 06-23-2025 INR Coag (Platelet poor plasma or blood) [Relative time] 2.8 High 0.9 - 1.2 [facility] Interpretation and review of laboratory results Abnormal [facility] PT Coag (PPP) [Time] 32.1 s High [facility] Anti XA unfractionated hepar inOrdered By: Mindy Conklin on 06-22-2025 Heparin unfractionated Chromogenic method Qn (PPP) 0.56 [facility] Comment on above: Optimal time for raimundo ting is 6 hrs post dosage This test is specific for monitoring patients on UFH, and is not recommended for use with other Anti-Xa medications. Interpretation and review of laboratory results Normal [facility] Basic Metabolic Panelon Anion gap [Moles/Vol] 8 mmol/L 5 - 15 mmol/L [facility] Calcium [Mass/Vol] 9.1 mg/dL 8.5 - 10. 5 mg/dL [facility] Chloride [Moles/Vol] 93 mmol/L Low 98 - 10 9 mmol/L [facility] CO2 [Moles/Vol] 26 mmol/L 22 - 32 mmol/L [facility] Creatinine [Mass/Vol] 0.76 mg/dL 0.60 - 1.30 mg/dL [facility] Comment on above: METHOD TRACEABLE TO IDAK STANDARD EGFR Non-Race Dependent 89 - PINF [facility] Comment on above: Reported eGFR is bas ed on the CKD-EPI 2020 equation that does not use a race coefficient. Glucose [Mass/Vol] 135 mg/dL High 65 - 99 mg/dL [facility] Interpretation and review of laboratory results Abnormal [facility] Potassium [Moles/Vol] 4.3 mmol/L 3.5 - 5.0 mmol/L [facility] Sodium [Moles/Vol] 127 mmol/L Low 134 - 146 mmol/L [facility] Urea nitrogen [Mass/Vol] 35 mg/dL High 5 - 27 mg/dL [facility] CBC auto differentialon Basophils (Bld) [#/Vol] 0.1 10*3/uL 0.0 - 0.2 10*3/uL [facility] Basophils/100 WBC (Bld) 1.3 % [facility] Differential cell count method Nom (Bld) AUTOMATED DIFFERENTIAL [facility] Eosinophils (Bld) [#/Vol] 0.1 10*3/uL 0.0 - 0.4 10*3/uL [facility] Eosinophils/100 WBC (Bld) 2 % [facility] Erythrocyte distribution width (RBC) [Ratio] 13.5 % 11.5 - 15 % [facility] Hematocrit (Bld) [Volume fraction] 36.3 % Low 39 - 50 % [facility] Hemoglobin (Bld) [Mass/Vol] 12.5 g/dL Low 13 - 17 g/dL [facility] Interpretation and review of laboratory results Abnormal [facility] Lymphocytes (Bld) [#/Vol] 1.5 10*3/uL 1.0 - 3.5 10*3/uL [facility] Lymphocytes/100 WBC (Bld) 26.9 % [facility] MCH (RBC) [Entitic mass] 31.2 pg 27 - [address] [facility] MCHC (RBC) [Mass/Vol] 34.4 g/dL 32 - 3 6 g/dL [facility] MCV (RBC) [Entitic vol] 91 fL 80 - [address] [facility] Monocytes (Bld) [#/Vol] 0.7 10*3/uL 0.0 - 0.9 10*3/uL [facility] Monocytes/100 WBC (Bld) 12.2 % [facility] Neutrophils (Bld) [#/Vol] 3.3 10*3/uL 1.5 - 6.6 10*3/uL [facility] Neutrophils/100 WBC (Bld) 57.6 % [facility] Platelet mean volume (Bld) [Entitic vol] 9.8 fL 7 - 12 fL [facility] Platelets (Bld) [#/Vol] 212 10*3/uL [facility] RBC (Bld) [#/Vol] 4 10*6/uL Low [facility] WBC LM Ql (Sput) 5.6 [facility] Electrolyte panelon 06-22-20 25 Anion gap [Moles/Vol] 8 mmol/L 5 - 15 mmol/L [facility] Chloride [Moles/Vol] 93 mmol/L Low 98 - 10 9 mmol/L [facility] CO2 [Moles/Vol] 28 mmol/L 22 - 32 mmol/L [facility] Interpretation and review of laboratory results Abnormal [facility] Potassium [Moles/Vol] 4.4 mmol/L 3.5 - 5.0 mmol/L [facility] Sodium [Moles/Vol] 129 mmol/L Low 134 - 146 mmol/L [facility] Anion gap [Moles/Vol] 7 mmol/L 5 - 15 mmol/L [facility] Chloride [Moles/Vol] 94 mmol/L Low 98 - 10 9 mmol/L [facility] CO2 [Moles/Vol] 28 mmol/L 22 - 32 mmol/L [facility] Interpretation and review of laboratory results Abnormal [facility] Potassium [Moles/Vol] 4.4 mmol/L 3.5 - 5.0 mmol/L [facility] Sodium [Moles/Vol] 129 mmol/L Low 134 - 146 mmol/L [facility] Lavender Topon 06-22-2025 Extra Tube Auto Resulted [facility] No Panel Informationon 06-22 [facility] Protime & INRon 06-22-2025 INR Coag (Platelet poor plasma or blood) [Relative time] 1.8 High 0.9 - 1.2 [facility] Interpretation and review of laboratory results Abnormal [facility] PT Coag (PPP) [Time] 19.9 s High [facility] Anti XA unfractionated hepar inon 06-21-2025 Heparin unfractionated Chromogenic method Qn (PPP) 0.37 [facility] Comment on above: Optimal time for raimundo ting is 6 hrs post dosage This test is specific for monitoring patients on UFH, and is not recommended for use with other Anti-Xa medications. Interpretation and review of laboratory results Normal [facility] Heparin unfractionated Chromogenic method Qn (PPP) 0.65 [facility] Comment on above: Optimal time for raimundo ting is 6 hrs post dosage This test is specific for monitoring patients on UFH, and is not recommended for use with other Anti-Xa medications. Interpretation and review of laboratory results Normal [facility] Basic Metabolic Panelon Anion gap [Moles/Vol] 9 mmol/L 5 - 15 mmol/L [facility] Calcium [Mass/Vol] 9 mg/dL 8.5 - 10. 5 mg/dL [facility] Chloride [Moles/Vol] 93 mmol/L Low 98 - 10 9 mmol/L [facility] CO2 [Moles/Vol] 25 mmol/L 22 - 32 mmol/L [facility] Creatinine [Mass/Vol] 0.72 mg/dL 0.60 - 1.30 mg/dL [facility] Comment on above: METHOD TRACEABLE TO IDAK STANDARD EGFR Non-Race Dependent - PINF [facility] Comment on above: Reported eGFR is bas ed on the CKD-EPI 2020 equation that does not use a race coefficient. Glucose [Mass/Vol] 121 mg/dL High 65 - 99 mg/dL [facility] Interpretation and review of laboratory results Abnormal [facility] Potassium [Moles/Vol] 4.5 mmol/L 3.5 - 5.0 mmol/L [facility] Sodium [Moles/Vol] 127 mmol/L Low 134 - 146 mmol/L [facility] Urea nitrogen [Mass/Vol] 25 mg/dL 5 - 27 mg/dL [facility] C-reactive proteinon 025 CRP [Mass/Vol] 8.9 mg/dL High NINF - 0.7 mg/dL [facility] Interpretation and review of laboratory results Abnormal [facility] CBC auto differentialon Basophils (Bld) [#/Vol] 0.1 10*3/uL 0.0 - 0.2 10*3/uL [facility] Basophils/100 WBC (Bld) 1.1 % [facility] Differential cell count method Nom (Bld) AUTOMATED DIFFERENTIAL [facility] Eosinophils (Bld) [#/Vol] 0 10*3/uL 0.0 - 0.4 10*3/uL [facility] Eosinophils/100 WBC (Bld) 0.9 % [facility] Erythrocyte distribution width (RBC) [Ratio] 13.8 % 11.5 - 15 % [facility] Hematocrit (Bld) [Volume fraction] 40.7 % 39 - 50 % [facility] Hemoglobin (Bld) [Mass/Vol] 14.1 g/dL 13 - 17 g/dL [facility] Lymphocytes (Bld) [#/Vol] 1.5 10*3/uL 1.0 - 3.5 10*3/uL [facility] Lymphocytes/100 WBC (Bld) 28.5 % [facility] MCH (RBC) [Entitic mass] 30.9 pg 27 - [address] [facility] MCHC (RBC) [Mass/Vol] 34.7 g/dL 32 - 3 6 g/dL [facility] MCV (RBC) [Entitic vol] 89 fL 80 - [address] [facility] Monocytes (Bld) [#/Vol] 0.6 10*3/uL 0.0 - 0.9 10*3/uL [facility] Monocytes/100 WBC (Bld) 12 % [facility] Neutrophils (Bld) [#/Vol] 3 10*3/uL 1.5 - 6.6 10*3/uL [facility] Neutrophils/100 WBC (Bld) 57.5 % [facility] Platelet mean volume (Bld) [Entitic vol] 9.7 fL 7 - 12 [facility]L [facility] [place] Platelets (Bld) [#/Vol] 189 10*3/uL [facility] RBC (Bld) [#/Vol] 4.56 10*6/uL [facility] WBC LM Ql (Sput) 5.3 [facility] CK Totalon 06-21-2025 CK [Catalytic activity/Vol] 26 U/L 24 - 195 U/L [facility] Interpretation and review of laboratory results Normal [facility] CT Head WO contraston 2024 [...] Esau Restrepo MD on 06/21/2025 10:56 AM [facility] Esau Restrepo MD - 06/21/2025 Examination: Noncontrast [...] Esau Restrepo MD on 06/21/2025 10:[address] [facility] Radiology Study observation (narrative) [facility] CT Head WO contrastOrdered B y: Esau Restrepo on 06-21-2025 [facility] Work Phone: Electrolyte panelon 06-21-20 25 Anion gap [Moles/Vol] 8 mmol/L 5 - 15 mmol/L [facility] Chloride [Moles/Vol] 92 mmol/L Low 98 - 10 9 mmol/L [facility] CO2 [Moles/Vol] 26 mmol/L 22 - 32 mmol/L [facility] Interpretation and review of laboratory results Abnormal [facility] Potassium [Moles/Vol] 4.8 mmol/L 3.5 - 5.0 mmol/L [facility] Sodium [Moles/Vol] 126 mmol/L Low 134 - 146 mmol/L [facility] Anion gap [Moles/Vol] 9 mmol/L 5 - 15 mmol/L [facility] Chloride [Moles/Vol] 93 mmol/L Low 98 - 10 9 mmol/L [facility] CO2 [Moles/Vol] 25 mmol/L 22 - 32 mmol/L [facility] Interpretation and review of laboratory results Abnormal [facility] Potassium [Moles/Vol] 4.4 mmol/L 3.5 - 5.0 mmol/L [facility] Sodium [Moles/Vol] 127 mmol/L Low 134 - 146 mmol/L [facility] Anion gap [Moles/Vol] 9 mmol/L 5 - 15 mmol/L [facility] Chloride [Moles/Vol] 90 mmol/L Low 98 - 10 9 mmol/L [facility] CO2 [Moles/Vol] 25 mmol/L 22 - 32 mmol/L [facility] Interpretation and review of laboratory results Abnormal [facility] Potassium [Moles/Vol] 4.6 mmol/L 3.5 - 5.0 mmol/L [facility] Sodium [Moles/Vol] 124 mmol/L Low 134 - 146 mmol/L [facility] Erythrocyte Sedimentation Ra te (ESR)on 06-21-2025 ESR (Bld) [Velocity] 46 mm/h High 0 - 20 mm/h [facility] Interpretation and review of laboratory results Abnormal [facility] Gas panel (BldV)on Arterial patency Wrist artery --pre arterial puncture N/A [facility] Base excess Calc (Bld) [Moles/Vol] 2 mmol/L 0.0 - 2.0 mmol/L [facility] CO2 (BldV) [Partial pressure] 51.8 mm[Hg] High [facility] HCO3 (Bld) [Moles/Vol] 28.7 mmol/L High 20.0 - 24.0 mmol/L [facility] Interpretation and review of laboratory results Abnormal [facility] Oxygen (BldV) [Partial pressure] 29 mm[Hg] Low [facility] Oxygen therapy source and amount [CARE] Room Air [facility] Oxygen/Inspired gas setting [Volume Fraction] Ventilator 21 % [facility] pH (BldV) 7.351 [pH] 7.320 - 7.420 [facility] SaO2% Calculated from oxygen partial pressure (BldV) [Mass fraction] 50 % [facility] Specimen site Narrative N/A [facility] Specimen type Nom (Spec) VENOUS [facility] No Panel Informationon 06-21 [facility] Protime & INRon 06-21-2025 INR Coag (Platelet poor plasma or blood) [Relative time] 1.6 High 0.9 - 1.2 [facility] Interpretation and review of laboratory results Abnormal [facility] PT Coag (PPP) [Time] 17.7 s High [facility] Anti XA unfractionated hepar inon 06-20-2025 Heparin unfractionated Chromogenic method Qn (PPP) 0.62 [facility] Comment on above: Optimal time for raimundo ting is 6 hrs post dosage This test is specific for monitoring patients on UFH, and is not recommended for use with other Anti-Xa medications. Interpretation and review of laboratory results Normal [facility] Basic Metabolic Panelon Anion gap [Moles/Vol] 8 mmol/L 5 - 15 mmol/L [facility] Calcium [Mass/Vol] 9 mg/dL 8.5 - 10. 5 mg/dL [facility] Chloride [Moles/Vol] 89 mmol/L Low 98 - 10 9 mmol/L [facility] CO2 [Moles/Vol] 27 mmol/L 22 - 32 mmol/L [facility] Creatinine [Mass/Vol] 0.73 mg/dL 0.60 - 1.30 mg/dL [facility] Comment on above: METHOD TRACEABLE TO IDMS STANDARD EGFR Non-Race Dependent 90 - PINF [facility] Comment on above: Reported eGFR is bas ed on the CKD-EPI 2020 equation that does not use a race coefficient. Glucose [Mass/Vol] 98 mg/dL 65 - 99 mg/dL [facility] Potassium [Moles/Vol] 4.3 mmol/L 3.5 - 5.0 mmol/L [facility] Sodium [Moles/Vol] 124 mmol/L Low 134 - 146 mmol/L [facility] Urea nitrogen [Mass/Vol] 12 mg/dL 5 - 27 mg/dL [facility] CBC auto differentialon Basophils (Bld) [#/Vol] 0.1 10*3/uL 0.0 - 0.2 10*3/uL [facility] Basophils/100 WBC (Bld) 1 % [facility] Differential cell count method Nom (Bld) AUTOMATED DIFFERENTIAL [facility] Eosinophils (Bld) [#/Vol] 0.1 10*3/uL 0.0 - 0.4 10*3/uL [facility] Eosinophils/100 WBC (Bld) 1.2 % [facility] Erythrocyte distribution width (RBC) [Ratio] 13.8 % 11.5 - 15 % [facility] Hematocrit (Bld) [Volume fraction] 38.1 % Low 39 - 50 % [facility] Hemoglobin (Bld) [Mass/Vol] 13.3 g/dL 13 - 17 g/dL [facility] Interpretation and review of laboratory results Abnormal [facility] Lymphocytes (Bld) [#/Vol] 1.5 10*3/uL 1.0 - 3.5 10*3/uL [facility] Lymphocytes/100 WBC (Bld) 22.4 % [facility] MCH (RBC) [Entitic mass] 31.3 pg 27 - [address] [facility] MCHC (RBC) [Mass/Vol] 34.9 g/dL 32 - 3 6 g/dL [facility] MCV (RBC) [Entitic vol] 90 fL 80 - [address] [facility] Monocytes (Bld) [#/Vol] 0.7 10*3/uL 0.0 - 0.9 10*3/uL [facility] Monocytes/100 WBC (Bld) 10.7 % [facility] Neutrophils (Bld) [#/Vol] 4.2 10*3/uL 1.5 - 6.6 10*3/uL [facility] Neutrophils/100 WBC (Bld) 64.7 % [facility] Platelet mean volume (Bld) [Entitic vol] 9.5 fL 7 - 12 fL [facility] [place] [facility] Platelets (Bld) [#/Vol] 204 10*3/uL [facility] RBC (Bld) [#/Vol] 4.25 10*6/uL [facility] WBC LM Ql (Sput) 6.[address] [facility] DISCONTINUE IN PROCESS EEG T ESTINGOrdered By: Documentation Systemgenerated on 06-20-2025 [facility] Work Phone: Electrolyte panelon 06-20-20 Anion gap [Moles/Vol] 8 mmol/L 5 - 15 mmol/L [facility] Chloride [Moles/Vol] 90 mmol/L Low 98 - 10 9 mmol/L [facility] CO2 [Moles/Vol] 24 mmol/L 22 - 32 mmol/L [facility] Interpretation and review of laboratory results Abnormal [facility] Potassium [Moles/Vol] 4.8 mmol/L 3.5 - 5.0 mmol/L [facility] Sodium [Moles/Vol] 122 mmol/L Low 134 - 146 mmol/L [facility] Anion gap [Moles/Vol] 8 mmol/L 5 - 15 mmol/L [facility] Chloride [Moles/Vol] 90 mmol/L Low 98 - 10 9 mmol/L [facility] CO2 [Moles/Vol] 24 mmol/L 22 - 32 mmol/L [facility] Interpretation and review of laboratory results Abnormal [facility] Potassium [Moles/Vol] 4.6 mmol/L 3.5 - 5.0 mmol/L [facility] Sodium [Moles/Vol] 122 mmol/L Low 134 - 146 mmol/L [facility] Anion gap [Moles/Vol] 8 mmol/L 5 - 15 mmol/L [facility] Chloride [Moles/Vol] 90 mmol/L Low 98 - 10 9 mmol/L [facility] CO2 [Moles/Vol] 24 mmol/L 22 - 32 mmol/L [facility] Interpretation and review of laboratory results Abnormal [facility] Potassium [Moles/Vol] 4.3 mmol/L 3.5 - 5.0 mmol/L [facility] Sodium [Moles/Vol] 122 mmol/L Low 134 - 146 mmol/L [facility] Holter monitor studyon 06-20 Images from the original result were not included. Continuous video EEG monitoring study Date of Report: 06/20/2025 History: This is a n 85 yo man with altered mental status, concern for seizures. Procedure: Start: 20:37 06/19/2025 End: 06:30 06/20/2025 This is a standard [facility] EEG monitoring report using scalp and ear [...] or primary neurological disorders. Yaquelin Esparza MD Senior Industrial Engineer Neurology/Neurophysi ology [facility] MANUALLY TRANSCRIBED RESULTS [facility] Lavender Topon 06-20-2025 Extra Tube Auto Resulted [facility] No Panel Informationon 06-20 [facility] Interpretation and review of laboratory results Abnormal [facility] Osmolality, urineOrdered By: Dixon Rodriguez on 06-20-2025 Interpretation and review of laboratory results Normal [facility] Osmolality (U) [Osmolality] 565 mosm/kg [facility] Protime & INRon 06-20-2025 INR Coag (Platelet poor plasma or blood) [Relative time] 1.3 High 0.9 - 1.2 [facility] PT Coag (PPP) [Time] 15 s High [facility] Sodium, urine, randomon Sodium (U) [Moles/Vol] 64 mmol/L [facility] Thyroid profile includes TSH FT4on 06-20-2025 Free T4 [Mass/Vol] 1.13 ng/dL 0.61 - 1. 60 ng/dL [facility] Interpretation and review of laboratory results Abnormal [facility] TSH Qn 4.83 m[IU]/L High [facility] Uric acidon 06-20-2025 Interpretation and review of laboratory results Normal [facility] Urate [Mass/Vol] 4.4 mg/dL 2.6 - 7.2 mg/dL [facility] Urine Creatinine,randomon Creatinine (U) [Mass/Vol] 150.26 mg/dL [facility] Anti XA unfractionated hepar inon 06-19-2025 Heparin unfractionated Chromogenic method Qn (PPP) 0.64 [facility] Comment on above: Optimal time for raimundo ting is 6 hrs post dosage This test is specific for monitoring patients on UFH, and is not recommended for use with other Anti-Xa medications. Interpretation and review of laboratory results Normal [facility] Anti XA unfractionated hepar inOrdered By: Barbra Howell on 06-19-2025 Heparin unfractionated Chromogenic method Qn (PPP) 0.6 [facility] Comment on above: Optimal time for raimundo ting is 6 hrs post dosage This test is specific for monitoring patients on UFH, and is not recommended for use with other Anti-Xa medications. Interpretation and review of laboratory results Normal [facility] Basic Metabolic Panelon Anion gap [Moles/Vol] 9 mmol/L 5 - 15 mmol/L [facility] Calcium [Mass/Vol] 8.8 mg/dL 8.5 - 10. 5 mg/dL [facility] Chloride [Moles/Vol] 88 mmol/L Low 98 - 10 9 mmol/L [facility] CO2 [Moles/Vol] 26 mmol/L 22 - 32 mmol/L [facility] Creatinine [Mass/Vol] 0.73 mg/dL 0.60 - 1.30 mg/dL [facility] Comment on above: METHOD TRACEABLE TO IDMS STANDARD EGFR Non-Race Dependent 90 - PINF [facility] Comment on above: Reported eGFR is bas ed on the CKD-EPI 2020 equation that does not use a race coefficient. Glucose [Mass/Vol] 104 mg/dL High 65 - 99 mg/dL [facility] Interpretation and review of laboratory results Abnormal [facility] Potassium [Moles/Vol] 4.3 mmol/L 3.5 - 5.0 mmol/L [facility] Sodium [Moles/Vol] 123 mmol/L Low 134 - 146 mmol/L [facility] Urea nitrogen [Mass/Vol] 10 mg/dL 5 - 27 mg/dL [facility] CBC auto differentialon Basophils (Bld) [#/Vol] 0.1 10*3/uL 0.0 - 0.2 10*3/uL [facility] Basophils/100 WBC (Bld) 0.7 % [facility] Differential cell count method Nom (Bld) AUTOMATED DIFFERENTIAL [facility] Eosinophils (Bld) [#/Vol] 0.1 10*3/uL 0.0 - 0.4 10*3/uL [facility] Eosinophils/100 WBC (Bld) 1.1 % [facility] Erythrocyte distribution width (RBC) [Ratio] 13.5 % 11.5 - 15 % [facility] Hematocrit (Bld) [Volume fraction] 38.7 % Low 39 - 50 % [facility] Hemoglobin (Bld) [Mass/Vol] 13.4 g/dL 13 - 17 g/dL [facility] Interpretation and review of laboratory results Abnormal [facility] Lymphocytes (Bld) [#/Vol] 1.3 10*3/uL 1.0 - 3.5 10*3/uL [facility] Lymphocytes/100 WBC (Bld) 16 % [facility] MCH (RBC) [Entitic mass] 31.1 pg 27 - [address] [facility] MCHC (RBC) [Mass/Vol] 34.6 g/dL 32 - 3 6 g/dL [facility] MCV (RBC) [Entitic vol] 90 fL 80 - [address] [facility] Monocytes (Bld) [#/Vol] 1 10*3/uL High 0.0 - 0.9 10*3/uL [facility] Monocytes/100 WBC (Bld) 12.6 % [facility] Neutrophils (Bld) [#/Vol] 5.5 10*3/uL 1.5 - 6.6 10*3/uL [facility] Neutrophils/100 WBC (Bld) 69.6 % [facility] Platelet mean volume (Bld) [Entitic vol] 8.8 fL 7 - 12 fL [facility] Platelets (Bld) [#/Vol] 200 10*3/uL [facility] RBC (Bld) [#/Vol] 4.31 10*6/uL [facility] WBC LM Ql (Sput) 7.9 [facility] [employer] [facility] [employer] [facility] Cardiac echo study Procedure Ordered By: Abel Gross on 06-19-2025 Est. RA pressure 15 mmHg [facility] [employer] Work Phone: [facility] [employer] Work Phone: Cardiac echo study Procedure on [...] globally hypokinetic. [facility] Radiology Study observation (narrative) [facility] Electrolyte panelon 06-19-20 25 Anion gap [Moles/Vol] 7 mmol/L 5 - 15 mmol/L [facility] Chloride [Moles/Vol] 89 mmol/L Low 98 - 10 9 mmol/L [facility] CO2 [Moles/Vol] 24 mmol/L 22 - 32 mmol/L [facility] Interpretation and review of laboratory results Abnormal [facility] Potassium [Moles/Vol] 4.7 mmol/L 3.5 - 5.0 mmol/L [facility] Sodium [Moles/Vol] 120 mmol/L Low 134 - 146 mmol/L [facility] Magnesiumon 06-19-2025 Interpretation and review of laboratory results Normal [facility] Magnesium [Mass/Vol] 2.3 mg/dL 1.8 - 2 .6 mg/dL [facility] No Panel Informationon 06-19 [facility] US Carotid arteries - bilate ralon [...] at the phone number beside their name. [facility] Radiology Study observation (narrative) [facility] US Carotid arteries - bilate ralOrdered By: Abel Ballesteros on 06-19-2025 [facility] Work Phone: APTTon 06-18-2025 aPTT Coag (PPP) [Time] [address] [facility] Interpretation and review of laboratory results Normal [facility] Anti XA unfractionated hepar inon 06-18-2025 Heparin unfractionated Chromogenic method Qn (PPP) 0.[address] [facility] Comment on above: Optimal time for raimundo ting is 6 hrs post dosage This test is specific for monitoring patients on UFH, and is not recommended for use with other Anti-Xa medications. Interpretation and review of laboratory results Abnormal [facility] Basic Metabolic Panelon Anion gap [Moles/Vol] 10 mmol/L 5 - 15 mmol/L [facility] Calcium [Mass/Vol] 9.1 mg/dL 8.5 - 10. 5 mg/dL [facility] Chloride [Moles/Vol] 93 mmol/L Low 98 - 10 9 mmol/L [facility] CO2 [Moles/Vol] 24 mmol/L 22 - 32 mmol/L [facility] Creatinine [Mass/Vol] 0.71 mg/dL 0.60 - 1.30 mg/dL [facility] Comment on above: METHOD TRACEABLE TO IDMS STANDARD EGFR Non-Race Dependent - PINF [facility] Comment on above: Reported eGFR is bas ed on the CKD-EPI 2020 equation that does not use a race coefficient. Glucose [Mass/Vol] 81 mg/dL 65 - 99 mg/dL [facility] Interpretation and review of laboratory results Abnormal [facility] Potassium [Moles/Vol] 4.3 mmol/L 3.5 - 5.0 mmol/L [facility] Sodium [Moles/Vol] 127 mmol/L Low 134 - 146 mmol/L [facility] Urea nitrogen [Mass/Vol] 10 mg/dL 5 - 27 mg/dL [facility] Bedside Glucose *Place/Obtai n serum glucose if >500 per glucometer.on 06-18-2025 Glucose [Mass/Vol] 154 mg/dL High 65 - 99 mg/dL [facility] Interpretation and review of laboratory results Abnormal [facility] CBC auto differentialon Basophils (Bld) [#/Vol] 0.1 10*3/uL 0.0 - 0.2 10*3/uL [facility] Basophils/100 WBC (Bld) 1.5 % [facility] Differential cell count method Nom (Bld) AUTOMATED DIFFERENTIAL [facility] Eosinophils (Bld) [#/Vol] 0.2 10*3/uL 0.0 - 0.4 10*3/uL [facility] Eosinophils/100 WBC (Bld) 3.7 % [facility] Erythrocyte distribution width (RBC) [Ratio] 13.3 % 11.5 - 15 % [facility] Hematocrit (Bld) [Volume fraction] 36 % Low 39 - 50 % [facility] Hemoglobin (Bld) [Mass/Vol] 12.7 g/dL Low 13 - 17 g/dL [facility] Interpretation and review of laboratory results Abnormal [facility] Lymphocytes (Bld) [#/Vol] 1.2 10*3/uL 1.0 - 3.5 10*3/uL [facility] Lymphocytes/100 WBC (Bld) 22.7 % [facility] MCH (RBC) [Entitic mass] 31.5 pg 27 - [address] [facility] MCHC (RBC) [Mass/Vol] 35.4 g/dL 32 - 3 6 g/dL [facility] MCV (RBC) [Entitic vol] 89 fL 80 - [address] [facility] Monocytes (Bld) [#/Vol] 0.6 10*3/uL 0.0 - 0.9 10*3/uL [facility] Monocytes/100 WBC (Bld) 11.6 % [facility] Neutrophils (Bld) [#/Vol] 3.3 10*3/uL 1.5 - 6.6 10*3/uL [facility] Neutrophils/100 WBC (Bld) 60.5 % [facility] Platelet mean volume (Bld) [Entitic vol] 9.5 fL 7 - 12 fL [facility] Platelets (Bld) [#/Vol] 251 10*3/uL [facility] RBC (Bld) [#/Vol] 4.05 10*6/uL Low [facility] WBC LM Ql (Sput) 5.4 [facility] EEGon 06-18-2025 Images from the [...] or primary neurological disorders. Yaquelin Esparza MD Senior Industrial Engineer Neurology/Neurophysi ology [facility] MANUALLY TRANSCRIBED RESULTS EEGOrdered By: Yaquelin Esparza on 06-18-2025 [facility] [employer] Work Phone: Hemoglobinon 06-18-2025 Hemoglobin (Bld) [Mass/Vol] 13.9 g/dL 13 - 17 g/dL [facility] Hemoglobin A1con 06-18-2025 Average glucose Estimated from glycated hemoglobin (Bld) [Mass/Vol] 117 mg/dL [facility] HbA1c (Bld) [Mass fraction] 5.7 % High 4.4 - 5.6 % [facility] Comment on above: ADA Guidelines Result HgbA1c Normal : less than 5.7 % Prediabetes : 5.7 % to 6.4 % Diabetes : > 6.4 % Use with caution in patients with abnormal hemoglobin variants as the half-life of red blood cells and in vivo glycation rates are affected. Interpretation and review of laboratory results Abnormal [facility] Lipid profileon 06-18-2025 Cholesterol [Mass/Vol] 150 mg/dL 150 - 200 mg/dL [facility] Cholesterol in HDL [Mass/Vol] 41 mg/dL 39 - PINF mg/dL [facility] Comment on above: HDL <40 mg/dL - High Risk HDL > or = 40mg/dL- Desirable HDL >60 mg/dL - Negative Risk Cholesterol in HDL [Mass/Vol] 3.7 mg/dL 1.0 - 5.0 [facility] Cholesterol in LDL [Mass/Vol] 95 mg/dL NINF - 130 mg/dL [facility] Comment on above: LDL <100 mg/dL - Carlos A irable LDL >160 mg/dL - High Risk Cholesterol in VLDL [Mass/Vol] 14 mg/dL 0 - 30 mg/dL [facility] Interpretation and review of laboratory results Normal [facility] Triglyceride [Mass/Vol] 70 mg/dL 27 - 150 mg/dL [facility] MR Brain WO contraston 06-18 [...] MD on 06/18/2025 9:50 AM [facility] Ray Vaughn MD - 06/18/2025 [...] Ray Vaughn MD on 06/18/2025 9:[address] [facility] Radiology Study observation (narrative) [facility] MR Brain WO contrastOrdered By: Ray Vaughn on 06-18-2025 [facility] Work Phone: Magnesiumon 06-18-2025 Interpretation and review of laboratory results Abnormal [facility] Magnesium [Mass/Vol] 1.6 mg/dL Low 1.8 - 2 .6 mg/dL [facility] No Panel Informationon 06-18 Interpretation and review of laboratory results Normal [facility] OsmolalityOrdered By: Elisa erickson on 06-18-2025 Interpretation and review of laboratory results Abnormal [facility] Osmolality [Osmolality] 261 mosm/kg Low [facility] PST TOPon 06-18-2025 Extra Tube Auto Resulted [facility] Platelet counton 06-18-2025 Platelet mean volume (Bld) [Entitic vol] 8.7 fL 7 - 12 fL [facility] Platelets (Bld) [#/Vol] 214 10*3/uL [facility] Protime & INRon 06-18-2025 INR Coag (Platelet poor plasma or blood) [Relative time] 1.1 0.9 - 1.2 [facility] Interpretation and review of laboratory results Normal [facility] PT Coag (PPP) [Time] 13 s [facility] INR Coag (Platelet poor plasma or blood) [Relative time] 1.1 0.9 - 1.2 [facility] Interpretation and review of laboratory results Normal [facility] PT Coag (PPP) [Time] 13 s [facility] Bedside Glucose *Place/Obtai n serum glucose if >500 per glucometer.on 06-17-2025 Glucose [Mass/Vol] 111 mg/dL High 65 - 99 mg/dL [facility] Interpretation and review of laboratory results Abnormal [facility] CBC auto differentialon Basophils (Bld) [#/Vol] 0.1 10*3/uL 0.0 - 0.2 10*3/uL [facility] Basophils/100 WBC (Bld) 1.5 % [facility] Differential cell count method Nom (Bld) AUTOMATED DIFFERENTIAL [facility] Eosinophils (Bld) [#/Vol] 0.1 10*3/uL 0.0 - 0.4 10*3/uL [facility] Eosinophils/100 WBC (Bld) 3 % [facility] Erythrocyte distribution width (RBC) [Ratio] 13.8 % 11.5 - 15 % [facility] Hematocrit (Bld) [Volume fraction] 37.3 % Low 39 - 50 % [facility] Hemoglobin (Bld) [Mass/Vol] 13 g/dL 13 - 17 g/dL [facility] Interpretation and review of laboratory results Abnormal [facility] Lymphocytes (Bld) [#/Vol] 1.3 10*3/uL 1.0 - 3.5 10*3/uL [facility] Lymphocytes/100 WBC (Bld) 27.2 % [facility] MCH (RBC) [Entitic mass] 31.2 pg 27 - [address] [facility] MCHC (RBC) [Mass/Vol] 34.8 g/dL 32 - 3 6 g/dL [facility] MCV (RBC) [Entitic vol] 90 fL 80 - [address] [facility] Monocytes (Bld) [#/Vol] 0.5 10*3/uL 0.0 - 0.9 10*3/uL [facility] Monocytes/100 WBC (Bld) 10.1 % [facility] Neutrophils (Bld) [#/Vol] 2.8 10*3/uL 1.5 - 6.6 10*3/uL [facility] Neutrophils/100 WBC (Bld) 58.2 % [facility] Platelet mean volume (Bld) [Entitic vol] 9.4 fL 7 - [address] [facility] Platelets (Bld) [#/Vol] 193 10*3/uL [facility] RBC (Bld) [#/Vol] 4.17 10*6/uL [facility] WBC LM Ql (Sput) 4.[address] [facility] [employer] [facility] CT perfusion Headon 06-17-20 CT CEREBRAL [...] Nico Dempsey MD on 06/17/2025 5:08 PM [employer] Nico Dempsey MD - 06/17/2025 CT CEREBRAL [...] Nico Dempsey MD on 06/17/2025 5:[address] [facility] Radiology Study observation (narrative) [facility] CT perfusion HeadOrdered By: Nico Dempsey on 06-17-2025 [facility] Work Phone: Comprehensive metabolic pane patricio 06-17-2025 Albumin [Mass/Vol] 3.9 g/dL 3.2 - 5.3 g/dL [facility] ALP [Catalytic activity/Vol] 81 U/L 39 - 130 U/L [facility] ALT No additional P-5'-P [Catalytic activity/Vol] 11 U/L NINF - 40 U/L [facility] Anion gap [Moles/Vol] 8 mmol/L 5 - 15 mmol/L [facility] AST [Catalytic activity/Vol] 20 U/L NINF - 41 U/L [facility] Bilirubin [Mass/Vol] 1.1 mg/dL 0.3 - 1 .2 mg/dL [facility] Calcium [Mass/Vol] 9.2 mg/dL 8.5 - 10. 5 mg/dL [facility] Chloride [Moles/Vol] 93 mmol/L Low 98 - 10 9 mmol/L [facility] CO2 [Moles/Vol] 26 mmol/L 22 - 32 mmol/L [facility] Creatinine [Mass/Vol] 0.75 mg/dL 0.60 - 1.30 mg/dL [facility] Comment on above: METHOD TRACEABLE TO IDAK STANDARD EGFR Non-Race Dependent 90 - PINF [facility] Comment on above: Reported eGFR is bas ed on the CKD-EPI 2020 equation that does not use a race coefficient. Glucose [Mass/Vol] 94 mg/dL 65 - 99 mg/dL [facility] Potassium [Moles/Vol] 4.5 mmol/L 3.5 - 5.0 mmol/L [facility] Protein [Mass/Vol] 6.5 g/dL 6.0 - 8.0 g/dL [facility] Sodium [Moles/Vol] 127 mmol/L Low 134 - 146 mmol/L [facility] Urea nitrogen [Mass/Vol] 10 mg/dL 5 - 27 mg/dL [facility] Magnesiumon 06-17-2025 Magnesium [Mass/Vol] 1.7 mg/dL Low 1.8 - 2 .6 mg/dL [facility] No Panel Informationon 06-17 Interpretation and review of laboratory results Abnormal [facility] Phosphoruson 06-17-2025 Interpretation and review of laboratory results Normal [facility] Phosphate [Mass/Vol] 3.3 mg/dL 2.4 - 4 .9 mg/dL 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 yes, TCM with PCPPedro 06/19/25 at 1340 Did you understand your discharge instructions? yes Are you able to follow them? yes Did you receive new medications? yes, ASA 81 mg QD. stop; lisinopril, meloxicam Have you filled the Rx's? 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 Normal [facility] CMPon 06-07-2025 Albumin [Mass/Vol] 4.1 g/dL Normal 3.3-5.0 [facility] Comment on above: Performed By: #### 2 [id number] #### [facility] Laboratory [address] [place] [address] Albumin/Globulin [Mass ratio] 1.6 {ratio} Normal 1.1-2.2 [facility] Comment on above: Performed By: #### 2 [id number] #### [facility] [address] [place] [address] Alk Phos 86 Int._Unit/L Normal 21-98 [facility] Comment on above: Performed By: #### 2 [id number] #### [facility] [address] [place] [address] ALT 12 Int._Unit/L Normal 6-46 [facility] Comment on above: Performed By: #### 2 [id number] #### [facility] [address] [place] [address] Anion gap [Moles/Vol] 9 mmol/L Normal 6-16 [facility] Comment on above: Performed By: #### 2 [id number] #### [facility] [address] [place] [address] AST 24 Int._Unit/L Normal 5-43 [facility] Comment on above: Performed By: #### 2 [id number] #### [facility] [address] [place] [address] Bili Total 1.0 mg/dL Normal 0.0-1.1 [facility] Comment on above: Performed By: #### 2 [id number] #### [facility] [address] [place] [address] BUN/Creat Ratio 26 No Units High 10-20 [facility] Comment on above: Performed By: #### 2 [id number] #### [facility] [address] [place] [address] Calcium [Mass/Vol] 9.8 mg/dL Normal 8.9-11.1 [facility] Comment on above: Performed By: #### 2 [id number] #### [facility] [address] [place] [address] Chloride [Moles/Vol] 95 mmol/L Low 101-111 [facility] Comment on above: Performed By: #### 2 [id number] #### [facility] [address] [place] [address] CO2 [Moles/Vol] 27 mmol/L Normal 21-31 [facility] Comment on above: Performed By: #### 2 133675 #### [facility] [address] [place] [address] Creatinine [Mass/Vol] 1.1 mg/dL Normal 0.5-1.3 [facility] Comment on above: Performed By: #### 2 [id number] #### [facility] [address] [place] [address] Globulin (S) [Mass/Vol] 2.6 g/dL Normal 1.4-4.0 [facility] Comment on above: Performed By: #### 2 [id number] #### [facility] [address] [place] [address] Glucose [Mass/Vol] 190 mg/dL Normal 55-199 [facility] Comment on above: Performed By: #### 2 [id number] #### [facility] [address] [place] [address] Potassium [Moles/Vol] 4.2 mmol/L Normal 3.5-5.3 [facility] Comment on above: Performed By: #### 2 [id number] #### [facility] [address] [place] [address] Protein [Mass/Vol] 6.7 g/dL Normal 6.0-7.8 [facility] Comment on above: Performed By: #### 2 [id number] #### [facility] [address] [place] [address] Sodium [Moles/Vol] 127 mmol/L Low 135-145 [facility] Comment on above: Performed By: #### 2 [id number] #### [facility] [address] [place] [address] Urea nitrogen [Mass/Vol] 29 mg/dL High 5-21 [facility] Comment on above: Performed By: #### 2 [id number] #### [facility] [address] [place] [address] Family Medicine Office/Clini c Noteon 06-07-2025 Family Medicine Office/Clinic Note Family Medicine Office/Clinic Note Chief Complaint Discuss Medications The patient presents for a follow-up after hospitalization due to a nasal fracture. HPI Staff Former Dr Garcia pt. Pt presents today to follow up to hospitalization in [place]. Fell and hit his nose. Went to [facility] ER due to excessive bleeding. They packed it and DC'd pt. Upon arrival home, nose started bleeding again. [facility] He was then transferred to [facility] in [place] where they admitted him for 3-4days. Sodium was dc'd. And pt was started on Lisinopril & Keflex & Ure-NA History of Present Illness 85-year-old male presents with his following a recent hospital stay for a nasal fracture. The incident occurred when the patient fell while attempting to lacey his stomach, resulting in a nasal fracture and subsequent bleeding. He was initially treated at [facility] with nasal packing and later transferred to [facility] for further management. During hospitalization, the patient [...] Hypo-osmolality and hyponatremia) - Reviewed documents from [facility] in [place] - Sodium level on discharge 127 - Awaiting laboratory results - f/u in one week Ordered: Non-Formulary Medication, Ure-Na, See Instructions, 15 packet(s), 0, Natural Lemon Chitimacha flavor, [id number], Supply, 178.6, cm, 06/07/25 [...] See Instructions, 15 packet(s), 0, Natural Lemon Ch[place]imacha flavor, [id number], Supply, 178.6, cm, 06/07/25 10:56:00 EDT, Height/Length Dosing, 74.3, kg, 06/07/25 10:56:00 EDT, Weight Dosing 4. Nonsmoker (Z78.9: Other specified health status) Encouraged to continue as a non-smoker Ordered: Non-Formulary Medication, Ure-Na, See Instructions, 15 packet(s), 0, Natural Lemon Chitimacha flavor, [id number], Supply, 178.6, cm, 06/07/25 10:56:00 EDT, Height/Length Dosing, 74.3, kg, 06/07/25 10:56:00 EDT, Weight Dosing total time spent preparing the chart, conducting of the encounter with the patient and family and time spent documenting, reviewing, and ordering tests was 40 minutes. Follow-up With When Contact Information YANIQUE MCNEILL CNP, FAM In 6 days 06/13/2025 EDT [address] [place] [address] Business (1) Additional Instructions: Patient Education Hyponatremia, Idyr-dj-Zlwl Problem List/Past Medical History Ongoing ASCVD (arteriosclerotic cardiovascular disease) Back spasm BMI 23.0-23.9, adult BMI 25.0-25.9,adult Carpal tunnel syndrome, left DM type 2 causing vascular disease Encounter for surveillance of abnormal nevi Erectile dysfunction due to arterial insufficiency Hard of hearing Hyperlipidemia Hyponatremia Hypothyroid Longstanding persistent atrial fibrillation Non (more content not included)... Normal [facility] Comment on above: Result Comment: Elec tronically Signed By: YANIQUE MCNEILL CNP\.br\Date and Time Signed: 06/07/25 14:35 EDT eGFRon 06-07-2025 eGFR 67 mL/min/1.73 m2 Normal >=59 [facility] Comment on above: Performed By: #### 1 [id number] #### [facility] Laboratory [address] [place] [address] Basic Metabolic Panelon 05-15 Anion gap [Moles/Vol] 12 mmol/L 9 - 16 mmol/L [facility] Calcium [Mass/Vol] 9.2 mg/dL 8.6 - 10. 4 mg/dL [facility] Chloride [Moles/Vol] 95 mmol/L Low 98 - 10 7 mmol/L [facility] CO2 [Moles/Vol] 19 mmol/L Low 20 - 31 mmol/L [facility] Creatinine [Mass/Vol] 0.8 mg/dL 0.7 - 1.2 mg/dL [facility] Est, Glom Filt Rate 88 - PINF [facility] Comment on above: These results are not [...] 112 mg/dL High 74 - 99 mg/dL [facility] Interpretation and review of laboratory results Abnormal [facility] Potassium [Moles/Vol] 4.5 mmol/L 3.7 - 5.3 mmol/L [facility] Comment on above: Specimen hemolysis h as exceeded the interference as defined by Sindy. Value may be falsely increased. Suggest recollection if clinically indicated. Sodium [Moles/Vol] 126 mmol/L Low 136 - 145 mmol/L [facility] Urea nitrogen [Mass/Vol] 13 mg/dL 8 - 23 mg/dL [facility] Basic Metabolic Profon 06-05 Anion gap [Moles/Vol] 12 mmol/L Normal 9-16 [facility] Comment on above: Performed By: #### P T, BMP #### [facility] [address] [place] [address] [id number] Cutter Wet Machine: Pankaj Cordoba MD Calcium [Mass/Vol] 9.2 mg/dL Normal 8.6-10.4 [facility] Comment on above: Performed By: #### P T, BMP #### [facility] [address] [place], [place] [id number] Cutter Wet Machine: Pankaj Cordoba MD Chloride [Moles/Vol] 95 mmol/L Low 98-107 [facility] Comment on above: Performed By: #### P T, BMP #### [facility] [place], [place] [id number] Cutter Wet Machine: Pankaj Cordoba MD CO2 [Moles/Vol] 19 mmol/L Low 20-31 [facility] Comment on above: Performed By: #### P T, BMP #### [address] [address] [employer] Wet Machine: Pankaj Cordoba MD Creatinine [Mass/Vol] 0.8 mg/dL Normal 0.7-1.2 [facility] Comment on above: Performed By: #### P T, BMP #### [address] [address] Cutter Wet Machine: Pankaj Cordoba MD GFR/1.73 sq M.predicted among non-blacks MDRD (S/P/Bld) [Vol rate/Area] 88 mL/min/{1.73_m2} Normal >60 [facility] Comment on above: Result Comment: These [...] Performed By: #### P T, BMP #### [address] [address] Cutter Wet Machine: Pankaj Cordoba MD Glucose [Mass/Vol] 112 mg/dL High 74-99 [facility] Comment on above: Performed By: #### P T, BMP #### [address] [address] [employer] Wet Machine: Pankaj Cordoba MD Potassium [Moles/Vol] 4.5 mmol/L Normal 3.7-5.3 [facility] Comment on above: Result Comment: Spec imen hemolysis has exceeded the interference as defined by Sindy. Value may be falsely increased. Suggest recollection if clinically indicated. Performed By: #### P T, BMP #### [address] [address] [employer] Wet Machine: Pankaj Cordoba MD Sodium [Moles/Vol] 126 mmol/L Low 136-145 [facility] Comment on above: Performed By: #### P T, BMP #### [facility] [address] [place] [address] Cutter Wet Machine: Pankaj Cordoba MD Urea nitrogen [Mass/Vol] 13 mg/dL Normal 8-23 [facility] Comment on above: Performed By: #### P T, BMP #### [facility] [address] [place] [address] Cutter Wet Machine: Pankaj Cordoba MD Electrolyte Panelon 06-05-20 Anion gap [Moles/Vol] 16 mmol/L 9 - 16 mmol/L [facility] Chloride [Moles/Vol] 92 mmol/L Low 98 - 10 7 mmol/L [facility] CO2 [Moles/Vol] 19 mmol/L Low 20 - 31 mmol/L [facility] Interpretation and review of laboratory results Abnormal [facility] Potassium [Moles/Vol] 4.4 mmol/L 3.7 - 5.3 mmol/L [facility] Comment on above: Specimen hemolysis h as exceeded the interference as defined by Sindy. Value may be falsely increased. Suggest recollection if clinically indicated. Sodium [Moles/Vol] 127 mmol/L Low 136 - 145 mmol/L [facility] Electrolyteson 06-05-2025 Anion gap [Moles/Vol] 16 mmol/L Normal 9-16 [facility] Comment on above: Performed By: #### L YTE ####[facility] [address] [place] [address] Lab Director: Pankaj Cordoba MD Chloride [Moles/Vol] 92 mmol/L Low 98-107 [facility] Comment on above: Performed By: #### L YTE ####[facility] [address] [place] [phone] Director: Pankaj Cordoba MD CO2 [Moles/Vol] 19 mmol/L Low 20-31 [facility] Comment on above: Performed By: #### L YTE ####[facility] [address] [place] [address] lab Director: Pankaj Cordoba MD Potassium [Moles/Vol] 4.4 mmol/L Normal 3.7-5.3 [facility] Comment on above: Result Comment: Spec imen hemolysis has exceeded the interference as defined by Sindy. Value may be falsely increased. Suggest recollection if clinically indicated. Performed By: #### L YTE ####[address] [place] [address] lab Director: Pankaj Cordoba MD Sodium [Moles/Vol] 127 mmol/L Low 136-145 [facility] Comment on above: Performed By: #### L YTE ####[facility] NetTVKaeiyisonwgv[address] [place] [address] lab Director: Pankaj Cordoba MD Glucose,Whole Bloodon 2024 Glucose [Mass/Vol] 145 mg/dL High 75-110 [facility] Glucose [Mass/Vol] 108 mg/dL Normal 75-110 [facility] POC Glucose Fingerstickon Glucose [Mass/Vol] 145 mg/dL High 75 - 110 mg/dL [facility] Interpretation and review of laboratory results Abnormal [facility] Glucose [Mass/Vol] 108 mg/dL 75 - 110 mg/dL [facility] PTon 06-05-2025 INR Coag (PPP) [Relative time] 1.9 {INR} Normal [facility] Comment on above: Result Comment: Therapeutic Range: Moderate Anticoagulant Intensity: INR = 2.0-3.0 High Anticoagulant Intensity: INR = 2.5-3.5 Performed By: #### P T, BMP #### [facility] [address] [place] [address] Cutter Wet Machine: Pankaj Cordoba MD PT Coag (PPP) [Time] 22.4 s High 11.7-14.9 [facility] Comment on above: Performed By: #### P T, BMP #### [facility] [address] [place], [place] [id number] C[employer] Wet Machine: Pankaj Cordoba MD Protime-INRon 06-05-2025 INR Coag (PPP) [Relative time] 1.9 {INR} [facility] Comment on above: Therapeutic Range: Moderate Anticoagulant Intensity: INR = 2.0-3.0 High Anticoagulant Intensity: INR = 2.5-3.5 Interpretation and review of laboratory results Abnormal [facility] PT Coag (PPP) [Time] 22.4 s High [facility] Arterial Bld Gas,POCon 06-04 HCO3 (Bld) [Moles/Vol] 24.6 mmol/L Normal 21.0-28.0 [facility] O2 Device Room Air Normal [facility] Oxygen saturation in Blood 97.2 % Normal 94.0-98.0 [facility] pCO2, Arterial 38.6 mm Hg Normal 35.0-48.0 [facility] pH, Arterial 7.412 Normal 7.350-7.450 [facility] pO2, Arterial 91.7 mm Hg Normal 83.0-108.0 [facility] Positive Base Excess (calc) 0.1 mmol/L Normal 0.0-3.0 [facility] Site Drawn Right Radial Artery Normal [facility] Arterial Blood Gas, POCon HCO3 (Bld) [Moles/Vol] 24.6 mmol/L 21.0 - 28.0 mmol/L [facility] [employer] O2 Delivery Device Room Air [facility] Oxygen saturation in Blood 97.2 % 94.0 - 98.0 % [facility] POC pCO2 38.6 [facility] POC pH 7.412 7.350 - 7.450 [facility] POC PO2 91.7 [facility] Positive Base Excess, Art 0.1 mmol/L 0.0 - 3.0 mmol/L [facility] Sample Site Right Radial Artery [facility] BUN, POCon 06-04-2025 Urea nitrogen [Mass/Vol] 11 mg/dL Normal 8-26 [facility] Basic Metab w/rfx MGon 06-04 Anion gap [Moles/Vol] 10 mmol/L Normal 9-16 [facility] Comment on above: Performed By: #### B MPX ####[facility] [address] [place], [place] [address])[phone] Director: Pankaj Cordoba MD Calcium [Mass/Vol] 8.6 mg/dL Normal 8.6-10.4 [facility] Comment on above: Performed By: #### B MPX ####[facility] [address] [place] [address])[phone] Director: Pankaj Cordoba MD Chloride [Moles/Vol] 87 mmol/L Low 98-107 [facility] Comment on above: Performed By: #### B MPX ####[facility] [address] [place], [place] [phone] Director: Pankaj Cordoba MD CO2 [Moles/Vol] 21 mmol/L Normal 20-31 [facility] Comment on above: Performed By: #### B MPX ####[facility] [address] [place], [place] [phone] Director: Pankaj Cordoba MD Creatinine [Mass/Vol] 0.7 mg/dL Normal 0.7-1.2 [facility] Comment on above: Performed By: #### B MPX ####[facility] [address] [place], [place] [phone] Director: Pankaj Cordoba MD GFR/1.73 sq M.predicted among non-blacks MDRD (S/P/Bld) [Vol rate/Area] mL/min/{1.73_m2} Normal >60 [facility] Comment on above: Result Comment: These [...] B MPX ####[facility] [address] [place] [address] Lab Director: Pankaj Cordoba MD Glucose [Mass/Vol] 107 mg/dL High 74-99 [facility] Comment on above: Performed By: #### B MPX ####[address] [address] Lab Director: Pankaj Cordoba MD Potassium [Moles/Vol] 4.8 mmol/L Normal 3.7-5.3 [facility] Comment on above: Result Comment: Spec imen hemolysis has exceeded the interference as defined by Sindy. Value may be falsely increased. Suggest recollection if clinically indicated. Performed By: #### B MPX ####[address] [phone] Director: Pankaj Cordoba MD Sodium [Moles/Vol] 118 mmol/L Critically low 136-145 [facility] Comment on above: Performed By: #### B MPX ####[facility] [address] [place] [address] Lab Director: Pankaj Cordoba MD Urea nitrogen [Mass/Vol] 11 mg/dL Normal 8-23 [facility] Comment on above: Performed By: #### B MPX ####[facility] [address] [place] [address] Lab Director: Pankaj Cordoba MD Anion gap [Moles/Vol] 12 mmol/L Normal 9-16 [facility] Comment on above: Performed By: #### B MPX #### [address] [address] [employer] Machine: Pankaj Cordoba MD Calcium [Mass/Vol] 8.8 mg/dL Normal 8.6-10.4 [facility] Comment on above: Performed By: #### B MPX #### [address] [address] [employer] Machine: Pankaj Cordoba MD Chloride [Moles/Vol] 88 mmol/L Low 98-107 [facility] Comment on above: Performed By: #### B MPX #### [address] [address] C[employer] Wet Machine: Pankaj Cordoba MD CO2 [Moles/Vol] 19 mmol/L Low 20-31 [facility] Comment on above: Performed By: #### B MPX #### [facility] [address] [place] [address] [employer] Wet Machine: Pankaj Cordoba MD Creatinine [Mass/Vol] 0.6 mg/dL Low 0.7-1.2 [facility] Comment on above: Performed By: #### B MPX #### [address] [address] [employer] Machine: Pankaj Cordoba MD GFR/1.73 sq M.predicted among non-blacks MDRD (S/P/Bld) [Vol rate/Area] mL/min/{1.73_m2} Normal >60 [facility] Comment on above: Result Comment: These [...] secretion. Performed By: #### B MPX #### [facility] PAA[address] [place] [address] [employer]: Pankaj Cordoba MD Glucose [Mass/Vol] 86 mg/dL Normal 74-99 [facility] Comment on above: Performed By: #### B MPX #### [address] [address] [employer]: Pankaj Cordoba MD Potassium [Moles/Vol] 4.6 mmol/L Normal 3.7-5.3 [facility] Comment on above: Result Comment: Spec imen hemolysis has exceeded the interference as defined by Sindy. Value may be falsely increased. Suggest recollection if clinically indicated. Performed By: #### B MPX #### [address] [address] [employer]: Pankaj Cordoba MD Sodium [Moles/Vol] 119 mmol/L Critically low 136-145 [facility] Comment on above: Performed By: #### B MPX #### [address] [address] [employer]: Pankaj Cordoba MD Urea nitrogen [Mass/Vol] 11 mg/dL Normal 8-23 [facility] Comment on above: Performed By: #### B MPX #### [facility] PAA[facility] [address] [place] [address] [employer]: Pankaj Cordoba MD Anion gap [Moles/Vol] 12 mmol/L Normal 9-16 [facility] Comment on above: Performed By: #### B MPX ####[facility] [address] [place] [address] Lab Director: Pankaj Cordoba MD Calcium [Mass/Vol] 8.7 mg/dL Normal 8.6-10.4 [facility] Comment on above: Performed By: #### B MPX ####[facility] [address] [place] [address] Lab Director: Pankaj Cordoba MD Chloride [Moles/Vol] 88 mmol/L Low 98-107 [facility] Comment on above: Performed By: #### B MPX ####[facility] [address] [place] [address] Lab Director: Pankaj Cordoba MD CO2 [Moles/Vol] 19 mmol/L Low 20-31 [facility] Comment on above: Performed By: #### B MPX ####[address] [address] Lab Director: Pankaj Cordoba MD Creatinine [Mass/Vol] 0.6 mg/dL Low 0.7-1.2 [facility] Comment on above: Performed By: #### B MPX ####[address] [address])[phone] Director: Pankaj Cordoba MD GFR/1.73 sq M.predicted among non-blacks MDRD (S/P/Bld) [Vol rate/Area] mL/min/{1.73_m2} Normal >60 [facility] Comment on above: Result Comment: These [...] tubular secretion. Performed By: #### B MPX ####[address] [address] Lab Director: Pankaj Cordoba MD Glucose [Mass/Vol] 81 mg/dL Normal 74-99 [facility] Comment on above: Performed By: #### B MPX ####[address] [address] Lab Director: Pankaj Cordoba MD Potassium [Moles/Vol] 4.1 mmol/L Normal 3.7-5.3 [facility] Comment on above: Result Comment: Spec imen hemolysis has exceeded the interference as defined by Sindy. Value may be falsely increased. Suggest recollection if clinically indicated. Performed By: #### B MPX ####[facility] [address] [place], [place] [phone] Director: Pankaj Cordoba MD Sodium [Moles/Vol] 119 mmol/L Critically low 136-145 [facility] Comment on above: Performed By: #### B MPX ####[address] [phone] Director: Pankaj Cordoba MD Urea nitrogen [Mass/Vol] 11 mg/dL Normal 8-23 [facility] Comment on above: Performed By: #### B MPX ####[address] [phone] Director: Pankaj Cordoba MD Anion gap [Moles/Vol] 11 mmol/L Normal 9-16 [facility] Comment on above: Performed By: #### O SMO #### [address] [address] [employer]: Pankaj Cordoba MD Calcium [Mass/Vol] 9.0 mg/dL Normal 8.6-10.4 [facility] Comment on above: Performed By: #### O SMO #### [facility] PAAY [address] [place] [address] [employer]: Pankaj Cordoba MD Chloride [Moles/Vol] 88 mmol/L Low 98-107 [facility] Comment on above: Performed By: #### O SMO #### [facility] PAAY [address] [place] [address] [employer]: Pankaj Cordoba MD CO2 [Moles/Vol] 21 mmol/L Normal 20-31 [facility] Comment on above: Performed By: #### O SMO #### [address] [address] [employer]: Pankaj Cordoba MD Creatinine [Mass/Vol] 0.6 mg/dL Low 0.7-1.2 [facility] Comment on above: Performed By: #### O SMO #### [address] [address] [employer]: Pankaj Cordoba MD GFR/1.73 sq M.predicted among non-blacks MDRD (S/P/Bld) [Vol rate/Area] mL/min/{1.73_m2} Normal >60 [facility] Comment on above: Result Comment: These [...] secretion. Performed By: #### O SMO #### [address] [address] [employer]: Pankaj Cordoba MD Glucose [Mass/Vol] 75 mg/dL Normal 74-99 [facility] Comment on above: Performed By: #### O SMO #### [address] [address] [employer]: Pankaj Cordoba MD Potassium [Moles/Vol] 4.3 mmol/L Normal 3.7-5.3 [facility] Comment on above: Performed By: #### O SMO #### [address] [address] [employer]: Pankaj Cordoba MD Sodium [Moles/Vol] 120 mmol/L Low 136-145 [facility] Comment on above: Performed By: #### O SMO #### [facility] [address] [place] [address] [employer]: Pankaj Cordoba MD Urea nitrogen [Mass/Vol] 11 mg/dL Normal 8-23 [facility] Comment on above: Performed By: #### O SMO #### [facility] [address] [place] [address] [employer]: Pankaj Cordoba MD Anion gap [Moles/Vol] 14 mmol/L Normal 9-16 [facility] Comment on above: Performed By: #### B MPX ####[facility] [address] [place], [place] [phone] Director: Pankaj Cordoba MD Calcium [Mass/Vol] 8.5 mg/dL Low 8.6-10.4 [facility] Comment on above: Performed By: #### B MPX ####[facility] [address] [place], [place] [phone] Director: Pankaj Cordoba MD Chloride [Moles/Vol] 89 mmol/L Low 98-107 [facility] Comment on above: Performed By: #### B MPX ####[facility] [address] [place], [place] [phone] Director: Pankaj Cordoba MD CO2 [Moles/Vol] 17 mmol/L Low 20-31 [facility] Comment on above: Performed By: #### B MPX ####[facility] [address]hf[address] [place], [place] [phone] Director: Pankaj Cordoba MD Creatinine [Mass/Vol] 0.6 mg/dL Low 0.7-1.2 [facility] Comment on above: Performed By: #### B MPX ####[facility] [address] [place], [place] [address])[phone] Director: Pankaj Cordoba MD GFR/1.73 sq M.predicted among non-blacks MDRD (S/P/Bld) [Vol rate/Area] mL/min/{1.73_m2} Normal >60 [facility] Comment on above: Result Comment: These [...] tubular secretion. Performed By: #### B MPX ####[place] [address] Lab Director: Pankaj Cordoba MD Glucose [Mass/Vol] 76 mg/dL Normal 74-99 [facility] Comment on above: Performed By: #### B MPX ####[place] [address] Lab Director: Pankaj Cordoba MD Potassium [Moles/Vol] 4.4 mmol/L Normal 3.7-5.3 [facility] Comment on above: Result Comment: Spec imen hemolysis has exceeded the interference as defined by Sindy. Value may be falsely increased. Suggest recollection if clinically indicated. Performed By: #### B MPX ####[facility] [address] [place] [address] Lab Director: Pankaj Cordoba MD Sodium [Moles/Vol] 120 mmol/L Low 136-145 [facility] Comment on above: Performed By: #### B MPX ####[address] [address] Lab Director: Pankaj Cordoba MD Urea nitrogen [Mass/Vol] 11 mg/dL Normal 8-23 [facility] Comment on above: Performed By: #### B MPX ####[place] [phone] Director: Pankaj Cordoba MD Anion gap [Moles/Vol] 15 mmol/L Normal 9-16 [facility] Comment on above: Performed By: #### B MPX ####[facility] [address] [place], [place] [phone] Director: Pankaj Cordoba MD Calcium [Mass/Vol] 8.6 mg/dL Normal 8.6-10.4 [facility] Comment on above: Performed By: #### B MPX ####[facility] [address] [place], [place] [phone] Director: Pankaj Cordoba MD Chloride [Moles/Vol] 86 mmol/L Low 98-107 [facility] Comment on above: Performed By: #### B MPX ####[facility] [address] [place], [place] [phone] Director: Pankaj Cordoba MD CO2 [Moles/Vol] 16 mmol/L Low 20-31 [facility] Comment on above: Performed By: #### B MPX ####[facility] [address]ceoqu[address] [place], [place] [phone] Director: Pankaj Cordoba MD Creatinine [Mass/Vol] 0.7 mg/dL Normal 0.7-1.2 [facility] Comment on above: Performed By: #### B MPX ####[facility] [address] [place], [place] [phone] Director: Pankaj Cordoba MD GFR/1.73 sq M.predicted among non-blacks MDRD (S/P/Bld) [Vol rate/Area] mL/min/{1.73_m2} Normal >60 [facility] Comment on above: Result Comment: These [...] B MPX ####[facility] [address] [place], [place] [phone] Director: Pankaj Cordoba MD Glucose [Mass/Vol] 90 mg/dL Normal 74-99 [facility] Comment on above: Performed By: #### B MPX ####[facility] [address]fib[address]vivol[address] [place] [address] Lab Director: Pankaj Cordoba MD Potassium [Moles/Vol] 4.1 mmol/L Normal 3.7-5.3 [facility] Comment on above: Result Comment: Spec imen hemolysis has exceeded the interference as defined by Sindy. Value may be falsely increased. Suggest recollection if clinically indicated. Performed By: #### B MPX ####[facility] [address] [place], [place] [phone] Director: Pankaj Cordoba MD Sodium [Moles/Vol] 117 mmol/L Critically low 136-145 [facility] Comment on above: Performed By: #### B MPX ####[facility] [address] [place] [address] Lab Director: Pankaj Cordoba MD Urea nitrogen [Mass/Vol] 12 mg/dL Normal 8-23 [facility] Comment on above: Performed By: #### B MPX ####[facility] [address] [place] [address] Lab Director: Pankaj Cordoba MD Basic Metabolic Panel w/ Ref maura to MGon 06-04-2025 Anion gap [Moles/Vol] 10 mmol/L 9 - 16 mmol/L [facility] Calcium [Mass/Vol] 8.6 mg/dL 8.6 - 10. 4 mg/dL [facility] Chloride [Moles/Vol] 87 mmol/L Low 98 - 10 7 mmol/L [facility] CO2 [Moles/Vol] 21 mmol/L 20 - 31 mmol/L [facility] Creatinine [Mass/Vol] 0.7 mg/dL 0.7 - 1.2 mg/dL [facility] Est, Glozoe Mejiat Rate - PINF [facility] Comment on above: These results are not [...] 107 mg/dL High 74 - 99 mg/dL [facility] Interpretation and review of laboratory results Abnormal [facility] Potassium [Moles/Vol] 4.8 mmol/L 3.7 - 5.3 mmol/L [facility] Comment on above: Specimen hemolysis h as exceeded the interference as defined by Sindy. Value may be falsely increased. Suggest recollection if clinically indicated. Sodium [Moles/Vol] 118 mmol/L Critically low 136 - 1 45 mmol/L [facility] Urea nitrogen [Mass/Vol] 11 mg/dL 8 - 23 mg/dL [facility] Anion gap [Moles/Vol] 12 mmol/L 9 - 16 mmol/L [facility] Calcium [Mass/Vol] 8.8 mg/dL 8.6 - 10. 4 mg/dL [facility] Chloride [Moles/Vol] 88 mmol/L Low 98 - 10 7 mmol/L [facility] CO2 [Moles/Vol] 19 mmol/L Low 20 - 31 mmol/L [facility] Creatinine [Mass/Vol] 0.6 mg/dL Low 0.7 - 1.2 mg/dL [facility] Est, Jesu Mejiat Rate - PINF [facility] Comment on above: These results are not [...] [Mass/Vol] 86 mg/dL 74 - 99 mg/dL [facility] Interpretation and review of laboratory results Abnormal [facility] Potassium [Moles/Vol] 4.6 mmol/L 3.7 - 5.3 mmol/L [facility] Comment on above: Specimen hemolysis h as exceeded the interference as defined by Sindy. Value may be falsely increased. Suggest recollection if clinically indicated. Sodium [Moles/Vol] 119 mmol/L Critically low 136 - 1 45 mmol/L [facility] Urea nitrogen [Mass/Vol] 11 mg/dL 8 - 23 mg/dL [facility] Anion gap [Moles/Vol] 12 mmol/L 9 - 16 mmol/L [facility] Calcium [Mass/Vol] 8.7 mg/dL 8.6 - 10. 4 mg/dL [facility] Chloride [Moles/Vol] 88 mmol/L Low 98 - 10 7 mmol/L [facility] CO2 [Moles/Vol] 19 mmol/L Low 20 - 31 mmol/L [facility] Creatinine [Mass/Vol] 0.6 mg/dL Low 0.7 - 1.2 mg/dL [facility] Est, Glom Filt Rate - PINF [facility] Comment on above: These results are not [...] [Mass/Vol] 81 mg/dL 74 - 99 mg/dL [facility]Advice[facility] Interpretation and review of laboratory results Abnormal [facility] Potassium [Moles/Vol] 4.1 mmol/L 3.7 - 5.3 mmol/L [facility] Comment on above: Specimen hemolysis h as exceeded the interference as defined by Sindy. Value may be falsely increased. Suggest recollection if clinically indicated. Sodium [Moles/Vol] 119 mmol/L Critically low 136 - 1 45 mmol/L [facility] Urea nitrogen [Mass/Vol] 11 mg/dL 8 - 23 mg/dL [facility] Anion gap [Moles/Vol] 11 mmol/L 9 - 16 mmol/L [facility] Calcium [Mass/Vol] 9 mg/dL 8.6 - 10. 4 mg/dL [facility] Chloride [Moles/Vol] 88 mmol/L Low 98 - 10 7 mmol/L [facility] CO2 [Moles/Vol] 21 mmol/L 20 - 31 mmol/L [facility] Creatinine [Mass/Vol] 0.6 mg/dL Low 0.7 - 1.2 mg/dL [facility] Est, Glom Robertot Rate - PINF [facility] Comment on above: These results are not [...] [Mass/Vol] 75 mg/dL 74 - 99 mg/dL [facility] Interpretation and review of laboratory results Abnormal [facility] Potassium [Moles/Vol] 4.3 mmol/L 3.7 - 5.3 mmol/L [facility] Sodium [Moles/Vol] 120 mmol/L Low 136 - 145 mmol/L [facility] Urea nitrogen [Mass/Vol] 11 mg/dL 8 - 23 mg/dL [facility] Anion gap [Moles/Vol] 14 mmol/L 9 - 16 mmol/L [facility] Calcium [Mass/Vol] 8.5 mg/dL Low 8.6 - 10. 4 mg/dL [facility] Chloride [Moles/Vol] 89 mmol/L Low 98 - 10 7 mmol/L [facility] CO2 [Moles/Vol] 17 mmol/L Low 20 - 31 mmol/L [facility] Creatinine [Mass/Vol] 0.6 mg/dL Low 0.7 - 1.2 mg/dL [facility] Est, Jesu Michele Rate - PINF [facility] Comment on above: These results are not [...] [Mass/Vol] 76 mg/dL 74 - 99 mg/dL [facility] Interpretation and review of laboratory results Abnormal [facility] Potassium [Moles/Vol] 4.4 mmol/L 3.7 - 5.3 mmol/L [facility] Comment on above: Specimen hemolysis h as exceeded the interference as defined by Sindy. Value may be falsely increased. Suggest recollection if clinically indicated. Sodium [Moles/Vol] 120 mmol/L Low 136 - 145 mmol/L [facility] Urea nitrogen [Mass/Vol] 11 mg/dL 8 - 23 mg/dL [facility] Anion gap [Moles/Vol] 15 mmol/L 9 - 16 mmol/L [facility] Calcium [Mass/Vol] 8.6 mg/dL 8.6 - 10. 4 mg/dL [facility] Chloride [Moles/Vol] 86 mmol/L Low 98 - 10 7 mmol/L [facility] CO2 [Moles/Vol] 16 mmol/L Low 20 - 31 mmol/L [facility] Creatinine [Mass/Vol] 0.7 mg/dL 0.7 - 1.2 mg/dL [facility] Est, Jesu Michele Rate - PINF [facility] Comment on above: These results are not [...] [Mass/Vol] 90 mg/dL 74 - 99 mg/dL [facility] Interpretation and review of laboratory results Abnormal [facility] Potassium [Moles/Vol] 4.1 mmol/L 3.7 - 5.3 mmol/L [facility] Comment on above: Specimen hemolysis h as exceeded the interference as defined by Sindy. Value may be falsely increased. Suggest recollection if clinically indicated. Sodium [Moles/Vol] 117 mmol/L Critically low 136 - 1 45 mmol/L [facility] Urea nitrogen [Mass/Vol] 12 mg/dL 8 - 23 mg/dL [facility] CALCIUM, IONIC (POC)on 06-04 Calcium.ionized (Bld) [Moles/Vol] 1.18 mmol/L 1.15 - 1.33 mmol/L [facility] CT HEAD WO CONTRASTon 2024 CT [...] Dixon Crockett MD 06/04/25 Final result Normal [facility] CT Head WO contraston 2024 1. No acute intracranial abnormality. 2. Acute right maxillary sinusitis. [facility] EXAMINATION: CT OF THE HEAD WITHOUT [...] cells. SOFT TISSUES/SKULL: The calvarium is intact. [facility] Dixon Crockett MD - 06/04/2025 EXAMINATION: [...] intracranial abnormality. 2. Acute right maxillary sinusitis. [facility] Radiology Study observation (narrative) [facility] CT Head WO contrastOrdered B y: Dixon Crockett on 06-04-2025 [facility] Work Phone: Calcium, Ionic (POC)on 06-04 Calcium [Moles/Vol] 1.18 mmol/L Normal 1.15-1.33 [facility] Cortisolon 06-04-2025 Cortisol 11.7 ug/dL Normal 2.5-19.5 [facility] Comment on above: Result Comment: Cortisol Reference Range: AM 6.0-18.4 PM 2.7-10.5 Performed By: #### O SMO #### SPO [facility] [place] [id number] Cutter Wet Machine: Pankja Cordoba MD Cortisol Totalon 06-04-2025 Cortisol [Mass/Vol] 11.7 ug/dL 2.5 - 19 .5 ug/dL [facility] Comment on above: Cortisol Reference Range: AM 6.0-18.4 PM 2.7-10.5 Creatinine W/GFR Point of Ca reon 06-04-2025 Creatinine [Mass/Vol] 0.7 mg/dL 0.51 - 1.19 mg/dL [facility] eGFR, POC - PINF [facility] Comment on above: These results are [...] 05-15 Creatinine [Mass/Vol] 0.7 mg/dL Normal 0.51-1.19 [facility] GFR/1.73 sq M.predicted among non-blacks MDRD (S/P/Bld) [Vol rate/Area] mL/min/{1.73_m2} Normal >60 [facility] Comment on above: Result Comment: These [...] [Moles/Vol] 12 mmol/L 7 - 16 mmol/L [facility] Chloride [Moles/Vol] 89 mmol/L Low 98 - 10 7 mmol/L [facility] CenterK[facility] CO2 Calc (Bld) [Moles/Vol] 23 mmol/L 22 - 30 mmol/L [facility] Potassium [Moles/Vol] 3.9 mmol/L 3.5 - 4.5 mmol/L [facility] Sodium [Moles/Vol] 123 mmol/L Low 138 - 146 mmol/L [facility] Electrolyte Panelon 06-04-20 25 Anion gap [Moles/Vol] 9 mmol/L 9 - 16 mmol/L [facility] Chloride [Moles/Vol] 91 mmol/L Low 98 - 10 7 mmol/L [facility] CO2 [Moles/Vol] 21 mmol/L 20 - 31 mmol/L [facility] CenterAhonya [facility] [employer] Interpretation and review of laboratory results Abnormal [facility] [employer] Potassium [Moles/Vol] 4.3 mmol/L 3.7 - 5.3 mmol/L [facility] CenterPrice[facility] [employer] Sodium [Moles/Vol] 121 mmol/L Low 136 - 145 mmol/L [facility] CenterAhonya [facility] [employer] [facility] CenterAh[facility]a [facility] [employer] Anion gap [Moles/Vol] 12 mmol/L 9 - 16 mmol/L [facility] [employer] Chloride [Moles/Vol] 90 mmol/L Low 98 - 10 7 mmol/L [facility] CO2 [Moles/Vol] 20 mmol/L 20 - 31 mmol/L [facility] CenterAhonya [facility] [employer] Interpretation and review of laboratory results Abnormal [facility] [employer] Potassium [Moles/Vol] 4.3 mmol/L 3.7 - 5.3 mmol/L [facility] [employer] [facility] Sodium [Moles/Vol] 122 mmol/L Low 136 - 145 mmol/L [facility] Anion gap [Moles/Vol] 11 mmol/L 9 - 16 mmol/L [facility] Chloride [Moles/Vol] 88 mmol/L Low 98 - 10 7 mmol/L [facility] CO2 [Moles/Vol] 19 mmol/L Low 20 - 31 mmol/L [facility] Interpretation and review of laboratory results Abnormal [facility] Potassium [Moles/Vol] 4.5 mmol/L 3.7 - 5.3 mmol/L [facility] Sodium [Moles/Vol] 118 mmol/L Critically low 136 - 1 45 mmol/L [facility] Electrolyteson 06-04-2025 Anion gap [Moles/Vol] 9 mmol/L Normal 9-16 [facility] Comment on above: Performed By: #### O SMO #### SPO [address] [place] [address] Cutter Wet Machine: Pankaj Cordoba MD Chloride [Moles/Vol] 91 mmol/L Low 98-107 [facility] Comment on above: Performed By: #### O SMO #### [facility] HospitalFreshmil[facility] [employer] [address] [place] [address] [employer]utter Wet Machine: Pankaj Cordoba MD CO2 [Moles/Vol] 21 mmol/L Normal 20-31 [facility] Comment on above: Performed By: #### O SMO #### SPO [address] [place] [address] [employer] Machine: Pankaj Cordoba MD Potassium [Moles/Vol] 4.3 mmol/L Normal 3.7-5.3 [facility] Comment on above: Performed By: #### O SMO #### S[facility] [address] [place] [address] [employer] Wet Machine: Pankaj Cordoba MD Sodium [Moles/Vol] 121 mmol/L Low 136-145 [facility] Comment on above: Performed By: #### O SMO #### SPO [address] [place] [address] [employer] Wet Machine: Pankaj Cordoba MD Anion gap [Moles/Vol] 12 mmol/L Normal 9-16 [facility] Comment on above: Performed By: #### L YTE ####[facility] [address] [place], [place] [phone] Director: Pankaj Cordoba MD Chloride [Moles/Vol] 90 mmol/L Low 98-107 [facility] Comment on above: Performed By: #### L YTE ####[facility] [address] [place], [place] [phone] Director: Pankaj Cordoba MD CO2 [Moles/Vol] 20 mmol/L Normal 20-31 [facility] Comment on above: Performed By: #### L YTE ####[facility] HospitalLegCyte [address] [place], [place] [phone] Director: Pankaj Cordoba MD Potassium [Moles/Vol] 4.3 mmol/L Normal 3.7-5.3 [facility] Comment on above: Performed By: #### L YTE ####[facility] [address] [place], [place] [phone] Director: Pankaj Cordoba MD Sodium [Moles/Vol] 122 mmol/L Low 136-145 [facility] Comment on above: Performed By: #### L YTE ####[facility] [address] [place], [place] [phone] Director: Pankaj Cordoba MD Anion gap [Moles/Vol] 11 mmol/L Normal 9-16 [facility] Comment on above: Performed By: #### O SMO #### [facility] HospitalFreshmilk [employer] [address] [place] [address] [employer]utter Wet Machine: Pankaj Cordoba MD Chloride [Moles/Vol] 88 mmol/L Low 98-107 [facility] Comment on above: Performed By: #### O SMO #### [facility] [address] [place] [address] [employer]utter Wet Machine: Pankaj Cordoba MD CO2 [Moles/Vol] 19 mmol/L Low 20-31 [facility] Comment on above: Performed By: #### O SMO #### [facility] [address] [place] [address] [employer]: Pankaj Cordoba MD Potassium [Moles/Vol] 4.5 mmol/L Normal 3.7-5.3 [facility] Comment on above: Performed By: #### O SMO #### [address] [address] [employer] Machine: Pankaj Cordoba MD Sodium [Moles/Vol] 118 mmol/L Critically low 136-145 [facility] Comment on above: Performed By: #### O SMO #### [address] [address] [employer]: Pankaj Cordoba MD Anion gap [Moles/Vol] 12 mmol/L Normal 7-16 [facility] Chloride [Moles/Vol] 89 mmol/L Low 98-107 [facility] CO2 [Moles/Vol] 23 mmol/L Normal 22-30 [facility] Potassium [Moles/Vol] 3.9 mmol/L Normal 3.5-4.5 [facility] Sodium [Moles/Vol] 123 mmol/L Low 138-146 [facility] Glucose (POC)on 06-04-2025 Glucose [Mass/Vol] 81 mg/dL Normal 74-100 [facility] Glucose,Whole Bloodon 2024 Glucose [Mass/Vol] 119 mg/dL High 75-110 [facility] Glucose [Mass/Vol] 96 mg/dL Normal 75-110 [facility] Glucose [Mass/Vol] 117 mg/dL High 75-110 [facility] Glucose [Mass/Vol] 93 mg/dL Normal 75-110 [facility] Glucose [Mass/Vol] 76 mg/dL Normal 75-110 [facility] Hemoglobin and hematocrit, b loodon 06-04-2025 Hematocrit (Bld) [Volume fraction] 36 % Low 41 - 53 % [facility] Hemoglobin (Bld) [Mass/Vol] 12.3 g/dL Low 13.5 - 17.5 g/dL [facility] Hgb/Hct, POCon 06-04-2025 Hematocrit (Bld) [Volume fraction] 36 % Low 41-53 [facility] Hemoglobin (Bld) [Mass/Vol] 12.3 g/dL Low 13.5-17.5 [facility] Lactic Acid (POC)on 06-04-20 25 Lactate [Moles/Vol] 0.8 mmol/L Normal 0.56-1.39 [facility] Lactic Acid, POCon POC Lactic Acid 0.8 mmol/L 0.56 - 1.39 mmol/L [facility] No Panel Informationon 06-04 [facility] Interpretation and review of laboratory results Abnormal [facility] Osmolality, Urineon 06-04-20 25 Osmolality (U) [Osmolality] 590 mosm/kg [facility] Osmolality - Urine 590 mOsm/kg Normal 80-1300 [facility] Comment on above: Performed By: #### U RNA, UOSMO ####[facility] [id number] [place] [address] [facility] Director: Pankaj Cordoba MD POC Glucose Fingerstickon Glucose [Mass/Vol] 119 mg/dL High 75 - 110 mg/dL [facility] Interpretation and review of laboratory results Abnormal [facility] Glucose [Mass/Vol] 96 mg/dL 75 - 110 mg/dL [facility] Glucose [Mass/Vol] 117 mg/dL High 75 - 110 mg/dL [facility] Interpretation and review of laboratory results Abnormal [facility] Glucose [Mass/Vol] 93 mg/dL 75 - 110 mg/dL [facility] Glucose [Mass/Vol] 76 mg/dL 75 - 110 mg/dL [facility] POCT Glucoseon 06-04-2025 Glucose [Mass/Vol] 81 mg/dL 74 - 100 mg/dL [facility] POCT urea (BUN)on 06-04-2025 Urea nitrogen [Mass/Vol] 11 mg/dL 8 - 26 mg/dL [facility] PTon 06-04-2025 INR Coag (PPP) [Relative time] 1.8 {INR} Normal [facility] Comment on above: Result Comment: Therapeutic Range: Moderate Anticoagulant Intensity: INR = 2.0-3.0 High Anticoagulant Intensity: INR = 2.5-3.5 Performed By: #### P T #### [facility] PAAY [address] [place], [place] [phone] [employer]: Pankaj Cordoba MD PT Coag (PPP) [Time] 21.4 s High 11.7-14.9 [facility] Comment on above: Performed By: #### P T #### [facility] PAAY [address] [place] [address] [phone] [employer]: Pankaj Cordoba MD Protime-INRon 06-04-2025 INR Coag (PPP) [Relative time] 1.8 {INR} [facility] Comment on above: Therapeutic Range: Moderate Anticoagulant Intensity: INR = 2.0-3.0 High Anticoagulant Intensity: INR = 2.5-3.5 Interpretation and review of laboratory results Abnormal [facility] PT Coag (PPP) [Time] 21.4 s High [facility] Sodium, Random Uron 06-04-20 25 Sodium (U) [Moles/Vol] 159 mmol/L Normal [facility] Comment on above: No normal range esta blished. Result Comment: No n ormal range established. Performed By: #### U RNA, UOSMO ####[facility] [address] [place] [address] Lab Director: Pankaj Cordoba MD Sodium, urine, randomon 05-15 [facility] T4, Freeon 06-04-2025 Free T4 [Mass/Vol] 1.5 ng/dL 0.92 - 1. 68 ng/dL [facility] TSHon 06-04-2025 TSH Qn 2.95 m[IU]/L [facility] Thyroid Stim. Horm.on 2024 Thyroid Stim. Horm. 2.95 uIU/mL Normal 0.27-4.20 [facility] Comment on above: Performed By: #### O SMO #### [address] [address] [employer]: Pankaj Cordoba MD Thyroxine, Freeon 06-04-2025 Thyroxine, Free 1.5 ng/dL Normal 0.92-1.68 [facility] Comment on above: Performed By: #### O SMO #### [address] [address] [employer]: Pankaj Cordoba MD Basic Metab w/rfx MGon 06-03 Anion gap [Moles/Vol] 11 mmol/L Normal 9-16 [facility] Comment on above: Performed By: #### O SMO #### [facility] PAAY [address] [place] [address] [employer]: Pankaj Cordoba MD Calcium [Mass/Vol] 9.0 mg/dL Normal 8.6-10.4 [facility] Comment on above: Performed By: #### O SMO #### [facility] PAAY [address] [place] [address] [employer]: Pankaj Cordoba MD Chloride [Moles/Vol] 90 mmol/L Low 98-107 [facility] Comment on above: Performed By: #### O SMO #### [facility] PAAY [address] [place] [address] [employer]: Pankaj Cordoba MD CO2 [Moles/Vol] 20 mmol/L Normal 20-31 [facility] Comment on above: Performed By: #### O SMO #### [address] [address] [employer]: Pankaj Cordoba MD Creatinine [Mass/Vol] 0.7 mg/dL Normal 0.7-1.2 [facility] Comment on above: Performed By: #### O SMO #### [address] [address] [employer]: Pankaj Cordoba MD GFR/1.73 sq M.predicted among non-blacks MDRD (S/P/Bld) [Vol rate/Area] mL/min/{1.73_m2} Normal >60 [facility] Comment on above: Result Comment: These [...] secretion. Performed By: #### O SMO #### [address] [address] [employer]: Pankaj Cordoba MD Glucose [Mass/Vol] 107 mg/dL High 74-99 [facility] Comment on above: Performed By: #### O SMO #### [address] [address] [employer]: Pankaj Cordoba MD Potassium [Moles/Vol] 4.8 mmol/L Normal 3.7-5.3 [facility] Comment on above: Result Comment: Spec imen hemolysis has exceeded the interference as defined by Sindy. Value may be falsely increased. Suggest recollection if clinically indicated. Performed By: #### O SMO #### [address] [place], [place] [phone] [employer]: Pankaj Cordoba MD Sodium [Moles/Vol] 121 mmol/L Low 136-145 [facility] Comment on above: Performed By: #### O SMO #### [facility] [address] [place], [place] [phone] [employer]: Pankaj Cordoba MD Urea nitrogen [Mass/Vol] 13 mg/dL Normal 8-23 [facility] Comment on above: Performed By: #### O SMO #### [address] [place], [place] [phone] [employer]: Pankaj Cordoba MD Basic Metabolic Panel w/ Ref maura to MGon 06-03-2025 Anion gap [Moles/Vol] 11 mmol/L 9 - 16 mmol/L [facility] Calcium [Mass/Vol] 9 mg/dL 8.6 - 10. 4 mg/dL [facility] Chloride [Moles/Vol] 90 mmol/L Low 98 - 10 7 mmol/L [facility] CO2 [Moles/Vol] 20 mmol/L 20 - 31 mmol/L [facility] Creatinine [Mass/Vol] 0.7 mg/dL 0.7 - 1.2 mg/dL [facility] Est, Jesu Michele Rate - PINF [facility] Comment on above: These results are not [...] 107 mg/dL High 74 - 99 mg/dL [facility] Interpretation and review of laboratory results Abnormal [facility] Potassium [Moles/Vol] 4.8 mmol/L 3.7 - 5.3 mmol/L [facility] Comment on above: Specimen hemolysis h as exceeded the interference as defined by Sindy. Value may be falsely increased. Suggest recollection if clinically indicated. Sodium [Moles/Vol] 121 mmol/L Low 136 - 145 mmol/L [facility] Urea nitrogen [Mass/Vol] 13 mg/dL 8 - 23 mg/dL [facility] CBC with Auto Differentialon 06-03-2025 Basophils (Bld) [#/Vol] 0.04 10*3/uL [facility] Basophils/100 WBC (Bld) 1 % 0 - 2 % [facility] Eosinophils (Bld) [#/Vol] 0.08 10*3/uL [facility] Eosinophils/100 WBC (Bld) 1 % 1 - 4 % [facility] Erythrocyte distribution width (RBC) [Ratio] 13 % 11.8 - 14.4 % [facility] Hematocrit (Bld) [Volume fraction] 35.2 % Low 40.7 - 50.3 % [facility] Hemoglobin (Bld) [Mass/Vol] 12.3 g/dL Low 13.0 - 17.0 g/dL [facility] Immature granulocytes (Bld) [#/Vol] [facility] Immature granulocytes/100 WBC (Bld) 0 % 0 [facility] Interpretation and review of laboratory results Abnormal [facility] Lymphocytes/100 WBC (Bld) 23 % Low 24 - 43 % [facility] Lymphocytes/100 WBC (Bld) 1.68 % [facility] MCH (RBC) [Entitic mass] 30.9 pg 25.2 - 33.5 pg [facility] MCHC (RBC) [Mass/Vol] 34.9 g/dL High 28.4 - 34.8 g/dL [facility] MCV (RBC) [Entitic vol] 88.4 fL 82.6 - 102.9 fL [facility] Monocytes/100 WBC (Bld) 11 % 3 - 12 % [facility] Monocytes/100 WBC (Bld) 0.8 % [facility] Neutrophils/100 WBC (Bld) 64 % 36 - 65 % [facility] Nucleated RBC/100 WBC (Bld) [Ratio] 0 % 0.0 per 100 WBC [facility] [employer] Platelet, Fluorescence 132 Low [facility] Platelets (Bld) [#/Vol] See Reflexed IPF Result [facility] [employer] Platelets reticulated/100 platelets Auto (Bld) 5.3 % 1.1 - 10.3 % [facility] RBC (Bld) [#/Vol] 3.98 10*6/uL Low 4.21 - 5.7 7 m/uL [facility] [employer] Segmented neutrophils/100 WBC (Bld) 4.63 % [facility] WBC other (Bld) [#/Vol] 7.2 [facility] CBC with Diffon 06-03-2025 Abs. Basophil 0.04 k/uL Normal 0.00-0.20 [facility] Comment on above: Performed By: #### O SMO #### [place] [address] [employer] Machine: Pankaj Cordoba MD Abs.Imm.Granulocyte <0.03 Normal 0.00-0.30 [facility] Comment on above: Performed By: #### O SMO #### [facility] PAAY [address] [place] [address] [employer] Machine: Pankaj Cordoba MD Abs.Neutrophil (Seg) 4.63 k/uL Normal 1.50-8.10 [facility] Comment on above: Performed By: #### O SMO #### [facility] PAAY [address] [place] [address] [employer] Machine: Pankaj Cordoba MD Basophils/100 WBC (Bld) 1 % Normal 0-2 [facility] Comment on above: Performed By: #### O SMO #### [facility] PAAY [address] [place] [address] [employer] Machine: Pankaj Cordoba MD Eosinophils (Bld) [#/Vol] 0.08 10*3/uL Normal 0.00-0.44 [facility] Comment on above: Performed By: #### O SMO #### [address] [address] [employer] Machine: Pankaj Cordoba MD Eosinophils/100 WBC (Bld) 1 % Normal 1-4 [facility] Comment on above: Performed By: #### O SMO #### [place] [address] [employer]: Pankaj Cordoba MD Erythrocyte distribution width (RBC) [Ratio] 13.0 % Normal 11.8-14.4 [facility] Comment on above: Performed By: #### O SMO #### [place] [address] [employer]: Pankaj Cordoba MD Hematocrit (Bld) [Volume fraction] 35.2 % Low 40.7-50.3 [facility] Comment on above: Performed By: #### O SMO #### [place] [address] [employer] Machine: Pankaj Cordoba MD Hemoglobin (Bld) [Mass/Vol] 12.3 g/dL Low 13.0-17.0 [facility] Comment on above: Performed By: #### O SMO #### [place] [address] [employer] Machine: Pankaj Cordoba MD Immature granulocytes/100 WBC (Bld) 0 % Normal 0 [facility] Comment on above: Performed By: #### O SMO #### [place] [address] [employer] Machine: Pankaj Cordoba MD Lymphocytes (Bld) [#/Vol] 1.68 10*3/uL Normal 1.10-3.70 [facility] Comment on above: Performed By: #### O SMO #### [address] [address] [employer] Machine: Pankaj Cordoba MD Lymphocytes/100 WBC (Bld) 23 % Low 24-43 [facility] Comment on above: Performed By: #### O SMO #### [address] [address] [employer] Machine: Pankaj Cordoba MD MCH (RBC) [Entitic mass] 30.9 pg Normal 25.2-33.5 [facility] Comment on above: Performed By: #### O SMO #### [address] [address] [employer] Machine: Pankaj Cordoba MD MCHC (RBC) [Mass/Vol] 34.9 g/dL High 28.4-34.8 [facility] Comment on above: Performed By: #### O SMO #### [address] [address] [employer] Machine: Pankaj Cordoba MD MCV (RBC) [Entitic vol] 88.4 fL Normal 82.6-102.9 [facility] Comment on above: Performed By: #### O SMO #### [address] [address] [employer] Machine: Pankaj Cordoba MD Monocytes (Bld) [#/Vol] 0.80 10*3/uL Normal 0.10-1.20 [facility] Comment on above: Performed By: #### O SMO #### [address] [address] [employer] Machine: Pankaj Cordoba MD Monocytes/100 WBC (Bld) 11 % Normal 3-12 [facility] Comment on above: Performed By: #### O SMO #### [address] [address] [employer] Machine: Pankaj Cordoba MD Neutrophil (Seg) 64 % Normal 36-65 [facility] Comment on above: Performed By: #### O SMO #### [address] [address] [employer] Machine: Pankaj Cordoba MD NRBC Automated 0.0 per 100 WBC Normal 0.0 [facility] Comment on above: Performed By: #### O SMO #### [address] [address] [employer] Machine: Pankaj Cordoba MD Platelet Count See Reflexed IPF Result Normal 138-453 [facility] Comment on above: Performed By: #### O SMO #### [address] [address] [employer] Machine: Pankaj Cordoba MD Platelet, Fluoresc. 132 k/uL Low 138-453 [facility] Comment on above: Performed By: #### O SMO #### [address] [address] [employer] Machine: Pankaj Cordoba MD PLT, Immature Fract. 5.3 % Normal 1.1-10.3 [facility] Comment on above: Performed By: #### O SMO #### [address] [address] [employer] Machine: Pankaj Cordoba MD RBC (Bld) [#/Vol] 3.98 10*6/uL Low 4.21-5.77 [facility] Comment on above: Performed By: #### O SMO #### [address] [address] [employer] Machine: Pankaj Cordoba MD WBC (Bld) [#/Vol] 7.2 10*3/uL Normal 3.5-11.3 [facility] Comment on above: Performed By: #### O SMO #### [address] [address] [employer] Machine: Pankaj Cordoba MD Electrolyte Panelon 06-03-20 Anion gap [Moles/Vol] 14 mmol/L 9 - 16 mmol/L [facility] Chloride [Moles/Vol] 86 mmol/L Low 98 - 10 7 mmol/L [facility] CO2 [Moles/Vol] 17 mmol/L Low 20 - 31 mmol/L [facility] Interpretation and review of laboratory results Abnormal [facility] Potassium [Moles/Vol] 4.4 mmol/L 3.7 - 5.3 mmol/L [facility] Comment on above: Specimen hemolysis h as exceeded the interference as defined by Sindy. Value may be falsely increased. Suggest recollection if clinically indicated. Sodium [Moles/Vol] 117 mmol/L Critically low 136 - 1 45 mmol/L [facility] Anion gap [Moles/Vol] 12 mmol/L 9 - 16 mmol/L [facility] Chloride [Moles/Vol] 89 mmol/L Low 98 - 10 7 mmol/L [facility] CO2 [Moles/Vol] 19 mmol/L Low 20 - 31 mmol/L [facility] Interpretation and review of laboratory results Abnormal [facility] Potassium [Moles/Vol] 4.5 mmol/L 3.7 - 5.3 mmol/L [facility] Comment on above: Specimen hemolysis h as exceeded the interference as defined by Sindy. Value may be falsely increased. Suggest recollection if clinically indicated. Sodium [Moles/Vol] 120 mmol/L Low 136 - 145 mmol/L [facility] Electrolyteson 06-03-2025 Anion gap [Moles/Vol] 14 mmol/L Normal 9-16 [facility] Comment on above: Performed By: #### L YTE ####[address] [place] [address] Lab Director: Pankaj Cordoba MD Chloride [Moles/Vol] 86 mmol/L Low 98-107 [facility] Comment on above: Performed By: #### L YTE ####[employer] [address] [place], [place] [phone] Director: Pankaj Cordoba MD CO2 [Moles/Vol] 17 mmol/L Low 20-31 [facility] Comment on above: Performed By: #### L YTE ####[place] [address] [place], [place] [phone] Director: Pankaj Cordoba MD Potassium [Moles/Vol] 4.4 mmol/L Normal 3.7-5.3 [facility] Comment on above: Result Comment: Spec imen hemolysis has exceeded the interference as defined by Sindy. Value may be falsely increased. Suggest recollection if clinically indicated. Performed By: #### L YTE ####[address] [phone] Director: Pankaj Cordoba MD Sodium [Moles/Vol] 117 mmol/L Critically low 136-145 [facility] Comment on above: Performed By: #### L YTE ####[address] [phone] Director: Pankaj Cordoba MD Anion gap [Moles/Vol] 12 mmol/L Normal 9-16 [facility] Comment on above: Performed By: #### L YTE ####[address] [phone] Director: Pankaj Cordoba MD Chloride [Moles/Vol] 89 mmol/L Low 98-107 [facility] Comment on above: Performed By: #### L YTE ####[facility] [address] [place], [place] [phone] Director: Pankaj Cordoba MD CO2 [Moles/Vol] 19 mmol/L Low 20-31 [facility] Comment on above: Performed By: #### L YTE ####[address] [phone] Director: Pankaj Cordoba MD Potassium [Moles/Vol] 4.5 mmol/L Normal 3.7-5.3 [facility] Comment on above: Result Comment: Spec imen hemolysis has exceeded the interference as defined by Sindy. Value may be falsely increased. Suggest recollection if clinically indicated. Performed By: #### L YTE ####[facility] [address] [place], [place] [phone] Lab Director: Pankaj Cordoba MD Sodium [Moles/Vol] 120 mmol/L Low 136-145 [facility] Comment on above: Performed By: #### L YTE ####[employer] [address] [place] [address] Lab Director: Pankaj Cordoba MD Glucose,Whole Bloodon 2024 Glucose [Mass/Vol] 92 mg/dL Normal 75-110 [facility] Glucose [Mass/Vol] 98 mg/dL Normal 75-110 [facility] Glucose [Mass/Vol] 124 mg/dL High 75-110 [facility] Glucose [Mass/Vol] 117 mg/dL High 75-110 [facility] Osmolalityon 06-03-2025 Interpretation and review of laboratory results Abnormal [facility] Osmolality [Osmolality] 251 mosm/kg Low [employer] [facility] Osmolality [Osmolality] 251 mosm/kg Low 275-295 [facility] Comment on above: Performed By: #### O SMO #### [facility] [address] [place], [place] [phone] [employer] Machine: Pnakaj Cordoba MD POC Glucose Fingerstickon Glucose [Mass/Vol] 92 mg/dL 75 - 110 mg/dL [facility] Glucose [Mass/Vol] 98 mg/dL 75 - 110 mg/dL [facility] Glucose [Mass/Vol] 124 mg/dL High 75 - 110 mg/dL [facility] Interpretation and review of laboratory results Abnormal [facility] Glucose [Mass/Vol] 117 mg/dL High 75 - 110 mg/dL [facility] Interpretation and review of laboratory results Abnormal [facility] PREVIOUS SPECIMENon 06-03-20 25 [facility] PTon 06-03-2025 INR Coag (PPP) [Relative time] 1.7 {INR} Normal [facility] Comment on above: Result Comment: Therapeutic Range: Moderate Anticoagulant Intensity: INR = 2.0-3.0 High Anticoagulant Intensity: INR = 2.5-3.5 Performed By: #### O SMO #### [address] [facility] [place], [place] [phone] [employer] Machine: Pankaj Cordoba MD PT Coag (PPP) [Time] 20.3 s High 11.7-14.9 [facility] Comment on above: Performed By: #### O SMO #### [address] [place] [phone] [employer] Machine: Pankaj Cordoba MD Protime-INRon 06-03-2025 INR Coag (PPP) [Relative time] 1.7 {INR} [facility] Comment on above: Therapeutic Range: Moderate Anticoagulant Intensity: INR = 2.0-3.0 High Anticoagulant Intensity: INR = 2.5-3.5 Interpretation and review of laboratory results Abnormal [facility] PT Coag (PPP) [Time] 20.3 s High [facility] Basic Metab w/rfx MGon 06-02 Anion gap [Moles/Vol] 13 mmol/L Normal 9-16 [facility] Comment on above: Performed By: #### B MPX, PT, CDP ####[facility] [address] [place], [place] 0120[address] Lab Director: Pankaj Cordoba MD Calcium [Mass/Vol] 9.1 mg/dL Normal 8.6-10.4 [facility] Comment on above: Performed By: #### B MPX, PT, CDP ####[facility] [address] [place] [address] Lab Director: Pankaj Cordoba MD Chloride [Moles/Vol] 96 mmol/L Low 98-107 [facility] Comment on above: Performed By: #### B MPX, PT, CDP ####[facility] [address] [place], [place] [phone] Director: Pankaj Cordoba MD CO2 [Moles/Vol] 20 mmol/L Normal 20-31 [facility] Comment on above: Performed By: #### B MPX, PT, CDP ####[facility] [id number] [place] [address] [phone] Director: Pankaj Cordoba MD Creatinine [Mass/Vol] 0.8 mg/dL Normal 0.7-1.2 [facility] Comment on above: Performed By: #### B MPX, PT, CDP ####[facility] [id number] [place] [address] [phone] Director: Pankaj oCrdoba MD GFR/1.73 sq M.predicted among non-blacks MDRD (S/P/Bld) [Vol rate/Area] 88 mL/min/{1.73_m2} Normal >60 [facility] Comment on above: Result Comment: These [...] PT, CDP ####[facility] [address] [place], [place] [phone] Director: Pankaj Cordoba MD Glucose [Mass/Vol] 117 mg/dL High 74-99 [facility] Comment on above: Performed By: #### B MPX, PT, CDP ####[facility] [address] [place] [address] Lab Director: Pankaj Cordoba MD Potassium [Moles/Vol] 4.7 mmol/L Normal 3.7-5.3 [facility] Comment on above: Performed By: #### B MPX, PT, CDP ####[facility] [address] [place] [address] Lab Director: Pankaj Cordoba MD Sodium [Moles/Vol] 129 mmol/L Low 136-145 [facility] Comment on above: Performed By: #### B MPX, PT, CDP ####[facility] [address] [place] [address] Lab Director: Pankaj Cordoba MD Urea nitrogen [Mass/Vol] 16 mg/dL Normal 8-23 [facility] Comment on above: Performed By: #### B MPX, PT, CDP ####[facility] [address] [place] [address] lab Director: Pankaj Cordoba MD Basic Metabolic Panel w/ Ref maura to MGon 06-02-2025 Anion gap [Moles/Vol] 13 mmol/L 9 - 16 mmol/L [facility] Calcium [Mass/Vol] 9.1 mg/dL 8.6 - 10. 4 mg/dL [facility] Chloride [Moles/Vol] 96 mmol/L Low 98 - 10 7 mmol/L [facility] CO2 [Moles/Vol] 20 mmol/L 20 - 31 mmol/L [facility] Creatinine [Mass/Vol] 0.8 mg/dL 0.7 - 1.2 mg/dL [facility] Est, Glom Filt Rate 88 - PINF [facility] Comment on above: These results are not [...] 117 mg/dL High 74 - 99 mg/dL [facility] Interpretation and review of laboratory results Abnormal [facility] Potassium [Moles/Vol] 4.7 mmol/L 3.7 - 5.3 mmol/L [facility] Sodium [Moles/Vol] 129 mmol/L Low 136 - 145 mmol/L [facility] Urea nitrogen [Mass/Vol] 16 mg/dL 8 - 23 mg/dL [facility] CBC with Auto Differentialon 06-02-2025 Basophils (Bld) [#/Vol] 0.06 10*3/uL [facility] Basophils/100 WBC (Bld) 1 % 0 - 2 % [facility] Eosinophils (Bld) [#/Vol] 0.08 10*3/uL [facility] Eosinophils/100 WBC (Bld) 1 % 1 - 4 % [facility] Erythrocyte distribution width (RBC) [Ratio] 13.2 % 11.8 - 14.4 % [facility] Hematocrit (Bld) [Volume fraction] 36.5 % Low 40.7 - 50.3 % [facility] Hemoglobin (Bld) [Mass/Vol] 12.3 g/dL Low 13.0 - 17.0 g/dL [facility] Immature granulocytes (Bld) [#/Vol] [facility] Immature granulocytes/100 WBC (Bld) 0 % 0 [facility] Interpretation and review of laboratory results Abnormal [facility] Lymphocytes/100 WBC (Bld) 25 % 24 - 43 % [facility] Lymphocytes/100 WBC (Bld) 1.93 % [facility] MCH (RBC) [Entitic mass] 30.7 pg 25.2 - 33.5 pg [facility] MCHC (RBC) [Mass/Vol] 33.7 g/dL 28.4 - 34.8 g/dL [facility] MCV (RBC) [Entitic vol] 91 fL 82.6 - 102.9 fL [facility] Monocytes/100 WBC (Bld) 11 % 3 - 12 % [facility] Monocytes/100 WBC (Bld) 0.84 % [facility] [facility] Neutrophils/100 WBC (Bld) 62 % 36 - 65 % [facility] Nucleated RBC/100 WBC (Bld) [Ratio] 0 % 0.0 per 100 WBC [facility] Platelet mean volume (Bld) [Entitic vol] 11.3 fL 8.1 - 13.5 fL [facility] Platelets (Bld) [#/Vol] 147 10*3/uL [facility] RBC (Bld) [#/Vol] 4.01 10*6/uL Low 4.21 - 5.7 7 m/uL [facility] Segmented neutrophils/100 WBC (Bld) 4.88 % [facility] WBC other (Bld) [#/Vol] 7.8 [facility] CBC with Diffon 06-02-2025 Abs. Basophil 0.06 k/uL Normal 0.00-0.20 [facility] Comment on above: Performed By: #### B MPX, PT, CDP ####[facility] [address] [place] [address] Lab Director: Pankaj Cordoba MD Abs.Imm.Granulocyte <0.03 Normal 0.00-0.30 [facility] Comment on above: Performed By: #### B MPX, PT, CDP ####[facility] [address] [place] [address] Lab Director: Pankaj Cordoba MD Abs.Neutrophil (Seg) 4.88 k/uL Normal 1.50-8.10 [facility] Comment on above: Performed By: #### B MPX, PT, CDP ####[facility] [address] [place] [address] Lab Director: Pankaj Cordoba MD Basophils/100 WBC (Bld) 1 % Normal 0-2 [facility] Comment on above: Performed By: #### B MPX, PT, CDP ####[facility] [address]it[address]48[address] [place] [address] Lab Director: Pankaj Cordoba MD Eosinophils (Bld) [#/Vol] 0.08 10*3/uL Normal 0.00-0.44 [facility] Comment on above: Performed By: #### B MPX, PT, CDP ####[facility] X[address]rdumgqzc42[address] [place], [place] [phone] Director: Pankaj Cordoba MD Eosinophils/100 WBC (Bld) 1 % Normal 1-4 [facility] Comment on above: Performed By: #### B MPX, PT, CDP ####[facility] [address]zhtej[address] [place], [place] [id number])[phone] Director: Pankaj Cordoba MD Erythrocyte distribution width (RBC) [Ratio] 13.2 % Normal 11.8-14.4 [facility] Comment on above: Performed By: #### B MPX, PT, CDP ####[facility] [address] [place], [place] [id number])[phone] Director: Pankaj Cordoba MD Hematocrit (Bld) [Volume fraction] 36.5 % Low 40.7-50.3 [facility] Comment on above: Performed By: #### B MPX, PT, CDP ####[facility] [address]jbizxbi[address] [place] [address] Lab Director: Pankaj Cordoba MD Hemoglobin (Bld) [Mass/Vol] 12.3 g/dL Low 13.0-17.0 [facility] Comment on above: Performed By: #### B MPX, PT, CDP ####[facility] [address] [place], [place] [id number])[phone] Director: Pankaj Cordoba MD Immature granulocytes/100 WBC (Bld) 0 % Normal 0 [facility] Comment on above: Performed By: #### B MPX, PT, CDP ####[facility] Jr[address]ib[address]nu15[address] [place], [place] [id number])[phone] Director: Pankaj Cordoba MD Lymphocytes (Bld) [#/Vol] 1.93 10*3/uL Normal 1.10-3.70 [facility] Comment on above: Performed By: #### B MPX, PT, CDP ####[facility] [address] [place] [address] 17955[facility])[phone] Director: Pankaj Cordoba MD Lymphocytes/100 WBC (Bld) 25 % Normal 24-43 [facility] Comment on above: Performed By: #### B MPX, PT, CDP ####[facility] [address] [place] [address] 69572[facility])[phone] Director: Pankaj Cordoba MD MCH (RBC) [Entitic mass] 30.7 pg Normal 25.2-33.5 [facility] Comment on above: Performed By: #### B MPX, PT, CDP ####[facility] [address] [place] [address] 81764[facility])[phone] Director: Pankaj Cordoba MD MCHC (RBC) [Mass/Vol] 33.7 g/dL Normal 28.4-34.8 [facility] Comment on above: Performed By: #### B MPX, PT, CDP ####[facility] [address] [place] [address] 18169[facility])[phone] Director: Pankaj Cordoba MD MCV (RBC) [Entitic vol] 91.0 fL Normal 82.6-102.9 [facility] Comment on above: Performed By: #### B MPX, PT, CDP ####[facility] [address] [place] [address] 65790[facility])[phone] Director: Pankaj Cordoba MD Monocytes (Bld) [#/Vol] 0.84 10*3/uL Normal 0.10-1.20 [facility] Comment on above: Performed By: #### B MPX, PT, CDP ####[facility] Ex[address] [place], [place] [id number])[phone] Director: Pankaj Cordoba MD Monocytes/100 WBC (Bld) 11 % Normal 3-12 [facility] Comment on above: Performed By: #### B MPX, PT, CDP ####[facility] [address] [place], [place] [id number])[phone] Director: Pankaj Cordoba MD Neutrophil (Seg) 62 % Normal 36-65 [facility] Comment on above: Performed By: #### B MPX, PT, CDP ####[facility] [address]rne[address] [place], [place] [id number])[phone] Director: Pankaj Cordoba MD NRBC Automated 0.0 per 100 WBC Normal 0.0 [facility] Comment on above: Performed By: #### B MPX, PT, CDP ####[facility] [address]ab[address] [place], [place] [id number])[phone] Director: Pankaj Cordoba MD Platelet mean volume (Bld) [Entitic vol] 11.3 fL Normal 8.1-13.5 [facility] Comment on above: Performed By: #### B MPX, PT, CDP ####[facility] [address] [place], [place] [id number])[phone] Director: Pankaj Cordoba MD Platelets (Bld) [#/Vol] 147 10*3/uL Normal 138-453 [facility] Comment on above: Performed By: #### B MPX, PT, CDP ####[facility] [address] [place], [place] [id number])[phone] Director: Pankaj Cordoba MD RBC (Bld) [#/Vol] 4.01 10*6/uL Low 4.21-5.77 [facility] Comment on above: Performed By: #### B MPX, PT, CDP ####[facility] [address]ys[address] [place], [place] [id number] lab Director: Pankaj Cordoba MD WBC (Bld) [#/Vol] 7.8 10*3/uL Normal 3.5-11.3 [facility] Comment on above: Performed By: #### B MPX, PT, CDP ####[facility] [address] [place], [place] [id number] lab Director: Pankaj Cordoba MD Glucose,Whole Bloodon 2024 Glucose [Mass/Vol] 127 mg/dL High 75-110 [facility] Glucose [Mass/Vol] 109 mg/dL Normal 75-110 [facility] Glucose [Mass/Vol] 110 mg/dL Normal 75-110 [facility] POC Glucose Fingerstickon Glucose [Mass/Vol] 127 mg/dL High 75 - 110 mg/dL [facility] Interpretation and review of laboratory results Abnormal [facility] Glucose [Mass/Vol] 109 mg/dL 75 - 110 mg/dL [facility] Glucose [Mass/Vol] 110 mg/dL 75 - 110 mg/dL [facility] PTon 06-02-2025 INR Coag (PPP) [Relative time] 1.9 {INR} Normal [facility] Comment on above: Result Comment: Therapeutic Range: Moderate Anticoagulant Intensity: INR = 2.0-3.0 High Anticoagulant Intensity: INR = 2.5-3.5 Performed By: #### B MPX, PT, CDP ####[facility] [address] [place], [place] [id number] lab Director: Pankaj Cordoba MD PT Coag (PPP) [Time] 22.2 s High 11.7-14.9 [facility] Comment on above: Performed By: #### B MPX, PT, CDP ####[facility] [address]bsym[address] [place], [place] [id number] lab Director: Pankaj Cordoba MD Protime-INRon 06-02-2025 INR Coag (PPP) [Relative time] 1.9 {INR} [facility] Comment on above: Therapeutic Range: Moderate Anticoagulant Intensity: INR = 2.0-3.0 High Anticoagulant Intensity: INR = 2.5-3.5 Interpretation and review of laboratory results Abnormal [facility] PT Coag (PPP) [Time] 22.2 s High [facility] CHEMISTRYOrdered By: Christine Stevens on [...] (Bld) [Mass fraction] 5.6 % Normal <=5.9% [facility] ChemAutoSS LibW6tdt 05-20-2025 HbA1c (Bld) [Mass fraction] 5.6 % Normal <=5.9 [facility] Comment on above: Performed By: #### 7 [id number] #### [facility] Laboratory [address] [place] [address] Lipid Panelon 05-20-2025 Cholesterol [Mass/Vol] 150 mg/dL Normal 120-200 [facility] Comment on above: Performed By: #### 2 [id number] #### [facility] [address] [place] [address] Cholesterol in HDL [Mass/Vol] 57 mg/dL Invalid Interpretation Code [facility] Comment on above: Result Comment: '>= 60 LOW RISK' '<= 40 HIGH RISK' Performed By: #### 2 [id number] #### [facility] [address] [place] [address] Cholesterol in LDL [Mass/Vol] 77 mg/dL Normal <=129 [facility] Comment on above: Performed By: #### 2 [id number] #### [facility] [address] [place] [address] Cholesterol in VLDL [Mass/Vol] 11 mg/dL Normal 7-40 [facility] Comment on above: Performed By: #### 2 [id number] #### [facility] [address] [place] [address] Triglyceride [Mass/Vol] 53 mg/dL Normal <=149 [facility] Comment on above: Performed By: #### 2 [id number] #### [facility] [address] [place] [address] U MA/Cr Ratioon 05-20-2025 Microalb/Cr Ratio NOT CALCULATED Invalid Interpretation Code .0-30.0 [facility] Comment on above: Result Comment: 30-3 00 mg/g Cr indicates an increased risk for diabetic nephropathy. >300 mg/g Cr is consistent with clinical nephropathy. Performed By: #### 1 [id number] #### [facility] [address] [place] [address] U Creatinine 62.9 mg/dL Invalid Interpretation Code [facility] Comment on above: Performed By: #### 1 [id number] #### [facility] [address] [place] [address] U Microalb <0.7 Normal 0.0-1.9 [facility] Comment on above: Performed By: #### 1 [id number] #### [facility] [address] [place] [address] Ambulatory Visit Summaryon 0 05-09-2025 Ambulatory Visit [...] Appointments Tuesday 8:20 AM EDT With: Where: [facility] [address] [address]- Tuesday 10:40 AM EDT With: YANIQUE MCNEILL CNP Where: [address] [address]- Tuesday2025 8:00 AM EDT With: Where: [address] [address]- You Need to Complete the Following HgbA1c, [...] Capsules By Mouth Every day Pickup at [facility] Unchanged Turmeric (Turmeric 500 mg oral capsule) 1 Capsules By Mouth Every day as needed for Prophylaxis Unchanged ubiquinone (CoQ10) See instructions Unchanged warfarin (warfarin 5 mg Tab) 1 Tablets By Mouth Every day Pharmacy Information [facility]: [address] [facility] ANDERSON Cristobal [phone] Allergies No Known Medication Allergies Problems Ongoing [...] in a (more content not included)... Normal [facility] Family Medicine Office/Clini c Noteon [...] of clutter to prevent tripping and/or falling. [place] Advance Directives reviewed, at home. Encouraged to [...] patient requests, he will have completed at [facility] prior to next PCP [...] Voices understandin (more content not included)... Normal [facility] Comment on above: Result Comment: [...] Care Team Attending Physician - Edwin Garcia MD. Primary Care Physician - Edwin Garcia MD. This Is Your Medications List [...] Follow-Up Appointments 2024 8:00 AM EDT Where: [place] [id number] Medications What How Much When Instructions Unchanged [...] for choosing us for your care. Normal [facility] BMPon 02-05-2025 Anion gap [Moles/Vol] 8 mmol/L Normal 6-16 [facility] Comment on above: Performed By: #### 2 [id number] #### [facility] [address] [place] [address] Calcium [Mass/Vol] 8.8 mg/dL Low 8.9-11.1 [facility] Comment on above: Performed By: #### 2 [id number] #### [facility] [address] [place] [address] Chloride [Moles/Vol] 99 mmol/L Low 101-111 [facility] Comment on above: Performed By: #### 2 [id number] #### [facility] [address] [place] [address] CO2 [Moles/Vol] 28 mmol/L Normal 21-31 [facility] Comment on above: Performed By: #### 2 786266 #### [facility] [address] [place] [address] Creatinine [Mass/Vol] 1.0 mg/dL Normal 0.5-1.3 [facility] Comment on above: Performed By: #### 2 [id number] #### [facility] [address] [place] [address] Glucose [Mass/Vol] 104 mg/dL Normal 55-199 [facility] Comment on above: Performed By: #### 2 [id number] #### [facility] [address] [place] [address] Potassium [Moles/Vol] 4.2 mmol/L Normal 3.5-5.3 [facility] Comment on above: Performed By: #### 2 [id number] #### [facility] [address] [place] [address] Sodium [Moles/Vol] 131 mmol/L Low 135-145 [facility] Comment on above: Performed By: #### 2 [id number] #### [facility] [address] [place] [address] Urea nitrogen [Mass/Vol] 13 mg/dL Normal 5-21 [facility] Comment on above: Performed By: #### 2 [id number] #### [facility] [address] [place] [address] Urea nitrogen/Creatinine [Mass ratio] 13 No Units Normal 10-20 [facility] Comment on above: Performed By: #### 2 [id number] #### [facility] [address] [place] [address] CHEMISTRYOrdered By: SYSTEM SYSTEM on 02-05-2025 Anion [...] reports as effective. Ongoing follow-up with a distribution accounting clerk is planned for later in February. The [...] confirmation of an upcoming appointment with a distribution accounting clerk later in February to further assess their [...] mcg(0.025 mg) (more content not included)... Normal [facility] Comment on above: Result Comment: Elec tronically Signed By: Edwin Garcia MD\.br\Date and Time Signed: 02/05/25 13:47 EDT eGFRon 02-05-2025 eGFR 75 mL/min/1.73 m2 Normal >=59 [facility] Comment on above: Performed By: #### 1 [id number] #### [facility] [address] [place] [address] Ambulatory Visit Summaryon 0 01-24-2025 Ambulatory Visit [...] EDT With: Adam COHN, Edwin Cole Where: [address] [address]- 2024 8:00 AM EDT With: Where: [address] [address]- Medications What How Much When Instructions Changed sodium chloride (Sodium Chloride 1 g oral tablet) See instructions 1 gram orally BID Pickup at [facility] Unchanged atenolol (atenolol 25 mg Tab) [...] physician if questions or concerns [facility] [address] [facility] [place] Cristobal [phone] Allergies No Known Medication Allergies Problems Ongoing [...] in adult (more content not included)... Normal [facility] BMPon 01-24-2025 Anion gap [Moles/Vol] 9 mmol/L Normal -16 [facility] Comment on above: Performed By: #### 2 [id number] #### [facility] [address] [place] [address] Calcium [Mass/Vol] 8.8 mg/dL Low 8.9-11.1 [facility] Comment on above: Performed By: #### 2 [id number] #### [facility] [address] [place] [address] Chloride [Moles/Vol] 98 mmol/L Low 101-111 [facility] Comment on above: Performed By: #### 2 [id number] #### [facility] [address] [place] [address] CO2 [Moles/Vol] 27 mmol/L Normal 21-31 [facility] Comment on above: Performed By: #### 2 [id number] #### [facility] [address] [place] [address] Creatinine [Mass/Vol] 1.0 mg/dL Normal 0.5-1.3 [facility] Comment on above: Performed By: #### 2 [id number] #### [facility] [address] [place] [address] Glucose [Mass/Vol] 114 mg/dL Normal 55-199 [facility] Comment on above: Performed By: #### 2 750454 #### [facility] [address] [place] [address] Potassium [Moles/Vol] 4.5 mmol/L Normal 3.5-5.3 [facility] Comment on above: Performed By: #### 2 210409 #### [facility] [address] [place] [address] Sodium [Moles/Vol] 129 mmol/L Low 135-145 [facility] Comment on above: Performed By: #### 2 [id number] #### [facility] [address] [place] [address] Urea nitrogen [Mass/Vol] 12 mg/dL Normal 5-21 [facility] Comment on above: Performed By: #### 2 708503 #### [facility] [address] [place] [address] Urea nitrogen/Creatinine [Mass ratio] 12 No Units Normal 10-20 [facility] Comment on above: Performed By: #### 2 [id number] #### [facility] [address] [place] [address] CHEMISTRYOrdered By: SYSTEM SYSTEM on 01-24-2025 Anion [...] wear the damaged aids, requiring a future maintenance mechanic elevators visit to resolve this issue. Moreover, the patient is under management for hypothyroidism, consistently taking his prescribed thyroid medication as directed. He denies experiencing notable symptoms of hypothyroidism, such as coldness or heightened fatigue. His reported increased daytime sleep appears to be associated more with lifestyle factors than with hypothyroidism. - Monitoring and follow-up for hyponatremia through scheduled nephrology appointment. - Anticipated maintenance mechanic elevators visit for hearing aid assessment and repair [...] The patient will follow up with a distribution accounting clerk for further evaluation and management of hyponatremia. We will adjust the sodium supplementation based on the upcoming lab results. Ordered: Basic Metabolic Panel Lab Specimen Collect 22585 TSH With T4fr Reflex 5. 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 An appointment with an appropriate maintenance mechanic elevators has been planned to assess and replace [...] ensure therap (more content not included)... Normal [facility] Comment on above: Result Comment: Elec tronically Signed By: Adam COHN, Edwin Cole\.claudio\Date and Time Signed: 01/24/25 14:16 EDT TSH With T4fr Reflexon 01-24 TSH Qn 2.69 m[IU]/L Normal 0.34-5.60 [facility] Comment on above: Performed By: #### 1 [id number] #### [facility] [address] [place] [address] eGFRon 01-24-2025 eGFR 75 mL/min/1.73 m2 Normal >=59 [facility] Comment on above: Performed By: #### 1 [id number] #### [facility] [address] [place] [address] Population Healthon 01-15-20 [facility] Case Information Case Priority: None Programs: -- Referral Source: Non Licensed Nuclear Plant Operator Referral Reason: Care coordination Case Type: Transition [...] See tcm note. Created By: Alec Rodrigez [facility] BMPon 01-09-2025 Anion gap [Moles/Vol] 9 mmol/L Normal 6-16 [facility] Comment on above: Performed By: #### 2 [id number] #### [facility] [address] [place] [address] Calcium [Mass/Vol] 9.0 mg/dL Normal 8.9-11.1 [facility] Comment on above: Performed By: #### 2 [id number] #### [facility] [address] [place] [address] Chloride [Moles/Vol] 93 mmol/L Low 101-111 [facility] Comment on above: Performed By: #### 2 [id number] #### [facility] [address] [place] [address] CO2 [Moles/Vol] 27 mmol/L Normal 21-31 [facility] Comment on above: Performed By: #### 2 [id number] #### [facility] [address] [place] [address] Creatinine [Mass/Vol] 0.8 mg/dL Normal 0.5-1.3 [facility] Comment on above: Performed By: #### 2 579055 #### [facility] [address] [place] [address] Glucose [Mass/Vol] 110 mg/dL Normal 55-199 [facility] Comment on above: Performed By: #### 2 [id number] #### [facility] [address] [place] [address] Potassium [Moles/Vol] 4.1 mmol/L Normal 3.5-5.3 [facility] Comment on above: Performed By: #### 2 [id number] #### [facility] [address] [place] [address] Sodium [Moles/Vol] 125 mmol/L Low 135-145 [facility] Comment on above: Performed By: #### 2 [id number] #### [facility] [address] [place] [address] Urea nitrogen [Mass/Vol] 12 mg/dL Normal 5-21 [facility] Comment on above: Performed By: #### 2 707205 #### [facility] [address] [place] [address] Urea nitrogen/Creatinine [Mass ratio] 15 No Units Normal 10-20 [facility] Comment on above: Performed By: #### 2 [id number] #### [facility] [address] [place] [address] CHEMISTRYOrdered By: SYSTEM SYSTEM on 01-09-2025 Anion [...] 01-09-2025 eGFR 88 mL/min/1.73 m2 Normal >=59 [facility] Comment on above: Performed By: #### 1 [id number] #### [facility] [address] [place] [address] [facility] 01-07-20 [facility] Case Information Case Priority: None Programs: -- Referral Source: Non Licensed Nuclear Plant Operator Referral Reason: Care coordination Case Type: Transition [...] changes as of 01-12, he'll be with [facility] Medicare. Patient has medication refill request, proposed [...] See tcm note. Created By: Alec Rodrigez [facility] BMPon 12-31-2024 Anion gap [Moles/Vol] 10 mmol/L Normal 6-16 [facility] Comment on above: Performed By: #### 2 [id number] #### [facility] [address] [place] [place] [address] Calcium [Mass/Vol] 9.3 mg/dL Normal 8.9-11.1 [facility] Comment on above: Performed By: #### 2 499390 #### [facility] [address] [place] [address] Chloride [Moles/Vol] 95 mmol/L Low 101-111 [facility] Comment on above: Performed By: #### 2 044930 #### [facility] [address] [place] [address] CO2 [Moles/Vol] 27 mmol/L Normal 21-31 [facility] Comment on above: Performed By: #### 2 [id number] #### [facility] [address] [place] [address] Creatinine [Mass/Vol] 0.8 mg/dL Normal 0.5-1.3 [facility] Comment on above: Performed By: #### 2 762974 #### [facility] [address] [place] [address] Glucose [Mass/Vol] 90 mg/dL Normal 55-199 [facility] Comment on above: Performed By: #### 2 547147 #### [facility] [address] [place] [address] Potassium [Moles/Vol] 4.3 mmol/L Normal 3.5-5.3 [facility] Comment on above: Performed By: #### 2 [id number] #### [facility] [address] [place] [address] Sodium [Moles/Vol] 128 mmol/L Low 135-145 [facility] Comment on above: Performed By: #### 2 [id number] #### [facility] [address] [place] [address] Urea nitrogen [Mass/Vol] 13 mg/dL Normal 5-21 [facility] [facility] Comment on above: Performed By: #### 2 [id number] #### [facility] [address] [place] [address] Urea nitrogen/Creatinine [Mass ratio] 16 No Units Normal 10-20 [facility] Comment on above: Performed By: #### 2 [id number] #### [facility] [address] [place] [address] CHEMISTRYOrdered By: SYSTEM SYSTEM on 12-31-2024 Anion [...] 12-31-2024 eGFR 88 mL/min/1.73 m2 Normal >=59 [facility] Comment on above: Performed By: #### 1 [id number] #### [facility] [address] [place] [address] Family Medicine Office/Clini c Noteon 12-24-2024 Family [...] changes. We (more content not included)... Normal [facility] Comment on above: Result Comment: Elec tronically Signed By: Edwin Garcia MD\.br\Date and Time Signed: 12/24/24 13:31 [facility] 12-24-[address] [place] [address] Case Information Case Priority: None Programs: -- Referral Source: Non Licensed Nuclear Plant Operator Referral Reason: Care coordination Case Type: Transition [...] tcm note. Created By: Alec Rodrigez Normal [facility] BMPon 12-18-2024 Anion gap [Moles/Vol] 10 mmol/L Normal 6-16 [facility] Comment on above: Performed By: #### 2 [id number] #### [facility] [address] [place] [address] Calcium [Mass/Vol] 9.1 mg/dL Normal 8.9-11.1 [facility] Comment on above: Performed By: #### 2 [id number] #### [facility] [address] [place] [address] Chloride [Moles/Vol] 98 mmol/L Low 101-111 [facility] Comment on above: Performed By: #### 2 [id number] #### [facility] [address] [place] [address] CO2 [Moles/Vol] 27 mmol/L Normal 21-31 [facility] Comment on above: Performed By: #### 2 [id number] #### [facility] [address] [place] [address] Creatinine [Mass/Vol] 0.9 mg/dL Normal 0.5-1.3 [facility] Comment on above: Performed By: #### 2 [id number] #### [facility] [address] [place] [address] Glucose [Mass/Vol] 113 mg/dL Normal 55-199 [facility] Comment on above: Performed By: #### 2 [id number] #### [facility] [address] [place] [address] Potassium [Moles/Vol] 3.9 mmol/L Normal 3.5-5.3 [facility] Comment on above: Performed By: #### 2 [id number] #### [facility] [address] [place] [address] Sodium [Moles/Vol] 131 mmol/L Low 135-145 [facility] Comment on above: Performed By: #### 2 [id number] #### [facility] [address] [place] [address] Urea nitrogen [Mass/Vol] 10 mg/dL Normal 5-21 [facility] Comment on above: Performed By: #### 2 [id number] #### [facility] [address] [place] [address] Urea nitrogen/Creatinine [Mass ratio] 11 No Units Normal 10-20 [facility] Comment on above: Performed By: #### 2 [id number] #### [facility] [address] [place] [address] eGFRon 12-18-2024 eGFR 85 mL/min/1.73 m2 Normal >=59 [facility] Comment on above: Performed By: #### 1 [id number] #### [facility] [address] [place] [address] Family Medicine Office/Clini c Noteon 12-17-2024 Family Medicine Office/Clinic Note Family Medicine Office/Clinic Note Chief Complaint ER follow up Confusion and persistent fatigue post-discharge with a concern for recurrent hyponatremia HPI Staff Pt presents today for ER follow up. Hospital: [facility] Visit date:12/14/24 Symptoms the patient presented [...] up with Nephrology. Ordered: Basic Metabolic Panel [facility] External Ambulatory Referral 2. 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 Ordered: Basic Metabolic Panel [facility] External Ambulatory Referral 3. Longstanding persistent atrial fibrillation (I48.11: Longstanding persistent atrial fibrillation) Maintain current management regime, evaluate rhythm control, and anticoagulation status during follow-up visits. Ordered: Basic Metabolic Panel [facility] External Ambulatory Referral 4. Hyponatremia (E87.1: Hypo-osmolality and hyponatremia) Continue monitoring sodium levels closely, with recommended nephrology review for stabilization strategy. No significant lifestyle factors contributing to sodium imbalance noted. Ordered: Basic Metabolic Panel [facility] External Ambulatory Referral 5. Hypothyroid (E03.9: Hypothyroidism, unspecified) Monitor thyroid levels to ensure therapeutic levels are maintained, adjust medications if indicated by lab abnormalities. Ordered: Basic Metabolic Panel [facility] External Ambulatory Referral 6. Nonsmoker (Z78.9: Other specified health status) Please continue to not smoke. Ordered: Basic Metabolic Panel Orders: fluticasone nasal, See Instructions, 48 mL, Refill(s) 1, USE 1 SPRAY IN EACH NOSTRIL TWICE A DAY, [id number], 178, cm, 08/28/24 14:50:00 EDT, Height/Length Dosing, 82.2, kg, 08/28/24 14:50:00 EDT, Weight Dosing sodium chloride, See Instructions, 1 gram orally daily, # 90 tab(s), Refills(s) 0, Pharmacy: [facility], 178.6, cm, 12/17/24 15:05:00 EST, Height/Length Dosing, 78.5, kg, 12/17/24 15: (more content not included)... Normal [facility] Comment on above: Result Comment: Elec tronically Signed By: Adam COHN, Edwin Lopez.br\Date and Time Signed: 12/17/24 15:29 EST Population Health 12-17-19 [facility] Case Information Case Priority: None Programs: -- Referral Source: Non Licensed Nuclear Plant Operator Referral Reason: Care coordination Case Type: Transition [...] Daily, 1 refills fluticasone Nasal 0.05 mg/inh [place], See Instructions, Self Directed gabapentin 300 mg [...] Care Plan Progress Note Admit Date: 12/14/24 [facility] Date of Discharge: 12/15/24 Follow-up appointment [...] cold wea (more content not included)... Normal [facility] Main OR Intraoperative Recor don 11-20-2024 Main OR Intraoperative Record Main OR Intraoperative Record IntraOp Document Type FT Summary Primary Physician: Axel Hernández DO Finalized Date/Time: 11/20/24 07:56:52 Pt. Name: DARIEL ZABALA/Sex: 1940 Male Med Rec #: [id number] Physician: Axel Hernández DO Financial #: [id number] Pt. Type: A Room/Bed: [place] [address] Admit/Disch: 11/19/24 09:28:12 - 11/19/24 14:30:00 Institution: [...] W Role Performed JULIETA Surgeon - Primary VICE PRESIDENT RISK MANAGEMENT/SA Time In 11/19/24 12:10:00 11/19/24 12:23:00 11/19/24 12:10:00 Time Out 11/19/24 12:37:00 11/19/24 12:35:00 11/19/24 12:37:00 Procedure CARPAL TUNNEL CARPAL TUNNEL CARPAL TUNNEL RELEASE(Left) RELEASE(Left) RELEASE(Left) Comments DR LOU SUPERVISING Last Modified By: Ambrocio Borges Terry T Sweene, Terry T 11/19/24 12:45:19 11/19/24 12:53:03 11/19/24 12:45:19 Entry 4 Entry 5 Case Attendee Ambrocio Borges Laura C Role Performed Gill Box Tender - Primary Scrub - Primary Time In [...] Sanchez CRNA, Given Participants Axel Hernández DO, Boyer CST, James W, Miller, Laura C, Ambrocio Borges Time Out Complete [...] and tissue Entry 1 Skin Integrity Intact, [place], Warm, & Skin Abnormality No Dry Outcomes [...] Hand Ta (more content not included)... Normal [facility] Operative Reporton Operative Report Operative [...] Satisfactory Axel Hernández D.O. ca Dictated: 11/19/2024 [id number] Transcribed: 11/19/2024 cc:Finn Medina [facility] Comment on above: Result Comment: Elec tronically Signed By: Axel Hernández DO\.br\Date and Time Signed: 11/20/24 16:36 EST BMPon 11-19-2024 Anion gap [Moles/Vol] 10 mmol/L Normal 6-16 [facility] Comment on above: Order Comment: To be drawn day of surgery. Performed By: #### 2 [id number] #### [facility] [address] [place] [address] Calcium [Mass/Vol] 9.2 mg/dL Normal 8.9-11.1 [facility] Comment on above: Order Comment: To be drawn day of surgery. Performed By: #### 2 [id number] #### [facility] [address] [place] [address] Chloride [Moles/Vol] 98 mmol/L Low 101-111 [facility] Comment on above: Order Comment: To be drawn day of surgery. Performed By: #### 2 [id number] #### [facility] [address] [place] [address] CO2 [Moles/Vol] 26 mmol/L Normal 21-31 [facility] Comment on above: Order Comment: To be drawn day of surgery. Performed By: #### 2 [id number] #### [facility] [address] [place] [address] Creatinine [Mass/Vol] 0.9 mg/dL Normal 0.5-1.3 [facility] Comment on above: Order Comment: To be drawn day of surgery. Performed By: #### 2 [id number] #### [facility] [address] [place] [address] Glucose [Mass/Vol] 77 mg/dL Normal 55-199 [facility] Comment on above: Order Comment: To be drawn day of surgery. Performed By: #### 2 [id number] #### [facility] [address] [place] [address] Potassium [Moles/Vol] 4.2 mmol/L Normal 3.5-5.3 [facility] Comment on above: Order Comment: To be drawn day of surgery. Performed By: #### 2 [id number] #### [facility] [address] [place] [address] Sodium [Moles/Vol] 130 mmol/L Low 135-145 [facility] Comment on above: Order Comment: To be drawn day of surgery. Performed By: #### 2 [id number] #### [facility] [address] [place] [address] Urea nitrogen [Mass/Vol] 8 mg/dL Normal 5-21 [facility] Comment on above: Order Comment: To be drawn day of surgery. Performed By: #### 2 [id number] #### [facility] [address] [place] [address] Urea nitrogen/Creatinine [Mass ratio] 9 No Units Low 10-20 [facility] Comment on above: Order Comment: To be drawn day of surgery. Performed By: #### 2 [id number] #### [facility] [address] [place] [address] CHEMISTRYOrdered By: Lab ROP User on 11-19-2024 Glucose [Mass/Vol] 78 mg/dL Normal 55 - 99 mg/dL [facility] POC Subsection Comment on above: Result Comment: Hilary danna Meter POC Username [email or web address] MAYA Invalid Interpretation Code [facility] POC Subsection Sodium [Moles/Vol] [id number] mmol/L Invalid Interpretation Code [facility] POC Subsection Sodium [Moles/Vol] 135289185 mmol/L Invalid Interpretation Code [facility] POC Subsection CHEMISTRYOrdered By: [...] 38.5 s High 25.1 - 36.5 second(s) [facility] Auto Coag Comment on [...] the same coagulation reagent and instrumentation as [facility]. Currently there are no coagulation studies available worldwide for children to 14 days, and no normal ranges. Heparin therapeutic range (represented by Anti-Factor Xa activity of 0.2 - 0.4 U/mL) corresponds to PTT of 56.6 - 109.0 sec. INR Coag (PPP) [Relative time] 1.11 {INR} Invalid Interpretation Code [facility] [employer] Comment on above: Interpretive Data: I NR results are specifically intended to assess patients stabilized on long-term Anticoagulation therapy suggested INR s Less Intensive Anticoagulation 2.0 3.0 Conventional Range 3.0 4.5 PT Coag (PPP) [Time] 12.5 s Normal 9.4 - 1 2.5 second(s) [facility] Auto Coag Comment on [...] the same coagulation reagent and instrumentation as [facility]. Currently there are no coagulation studies available worldwide for children to 14 days, and no normal ranges. Capillary Glucose POCon Glucose [Mass/Vol] 78 mg/dL Normal 55-99 [facility] Comment on above: Result Comment: Hilary clay Meter Performed By: #### 2 [id number] #### [facility] [address] [place] [address] Discharge Instructionson Discharge Instructions Discharge Instructions DARIEL [...] Clinic 2024 8:00 AM EDT With: Where: [address] [address]- New Follow Up Appointments after Discharge Follow Up with GORDO Weller When: 11/28/2024 01:00 PM EST Comments: Keep scheduled appointment. Call for any problems. Where: [address] [place], [place] [id number]- [facility] (1) Medications What How Much When Instructions [...] fluticasone nasal (fluticasone Nasal 0.05 mg/ inh [place]) See instructions USE 1 SPRAY IN EACH [...] Allergies No Known Medication Allergies Education Materials [place], [place] [facility] CARPAL TUNNEL RELEASE INSTRUCTIONS [...] if the (more content not included)... Normal [facility] Comment on above: Result Comment: Elec tronically Signed By: Deepak KHAN, Maya Vanegas\.br\Date and Time Signed: 11/19/24 13:12 EST [facility] CAPILLARY GLUCOSE POCon 11-19-2024 Glucose [Mass/Vol] 78 mg/dL 55 - 99 mg/dL [facility] Comment on above: Cleaned Meter Original Ordering Provider: DO Axel Hernández [facility] Main OR PACU I Recordon Main OR PACU I Record Main OR PACU I Record PACU Phase I Document Type FT Summary Primary Physician: Axel Hernández DO Finalized Date/Time: 11/19/24 13:24:52 Pt. Name: DARIEL ZABALA/Sex: 1940 Male Med Rec #: [id number] Physician: Axel Hernández DO Financial #: [id number] Pt. Type: A Room/Bed: AS09/01 Admit/Disch: 11/19/24 09:28:12 - Institution: Case Times [...] Signed By: Vicki Sethi RN 11/19/24 13:24 Navdeep KHAN, Vicki Craig 11/19/24 13:24 Normal [facility] Main OR PACU II Recordon Main OR PACU II Record Main OR PACU II Record PACU Phase II Document Type FT Summary Primary Physician: Axel Hernández DO Finalized Date/Time: 11/19/24 14:27:02 Pt. Name: DARIEL ZABALA/Sex: 1940 Male Med Rec #: [id number] Physician: Axel Hernández DO Financial #: [id number] Pt. Type: A Room/Bed: Admit/Disch: 11/19/24 09:28:12 [...] Outcomes Met? Yes Last Modified By: Maya Cavazos RN 11/19/24 14:27:00 Post-Care Text: The patient [...] during the perioperative period Finalized By: Maya Cavazos RN Document Signatures Signed By: Maya Cavazos RN 11/19/24 14:27 Normal [facility] Main OR Preoperative Recordo n 11-19-2024 Main OR Preoperative Record Main OR Preoperative Record PreOp Document Type FT Summary Primary Physician: Axel Hernández DO Finalized Date/Time: 11/19/24 12:53:23 Pt. Name: DARIEL ZABALA/Sex: 1940 Male Med Rec #: [id number] Physician: Axel Hernández DO Financial #: [id number] Pt. Type: A Room/Bed: 07/15 Admit/Disch: 11/19/24 09:28:12 - Institution: Case Times [...] 11/19/24 12:53 Ambrocio Borges 11/19/24 12:53 Normal [facility] PT & PTTon 11-19-2024 aPTT Coag (PPP) [Time] 38.5 second(s) High 25.1-36.5 [facility] Comment on above: Result Comment: [...] the same coagulation reagent and instrumentation as [facility]. Currently there are no coagulation studies available worldwide for children to 14 days, and no normal ranges. Heparin therapeutic range (represented by Anti-Factor Xa activity of 0.2 - 0.4 U/mL) corresponds to PTT of 56.6 - 109.0 sec. Performed By: #### 1 [id number] #### [facility] [address] [place] [address] INR Coag (PPP) [Relative time] 1.11 {INR} Invalid Interpretation Code [facility] Comment on above: Result Comment: INR results are specifically intended to assess patients stabilized on long-term Anticoagulation therapy suggested INR???s ???Less Intensive Anticoagulation??? 2.0 ??? 3.0 Conventional Range 3.0 ??? 4.5 Performed By: #### 1 [id number] #### [facility] [address] [place] [address] PT Coag (PPP) [Time] 12.5 second(s) Normal 9.4-12.5 [facility] Comment on above: Result Comment: [...] the same coagulation reagent and instrumentation as [facility]. Currently there are no coagulation studies available worldwide for children to 14 days, and no normal ranges. Performed By: #### 1 [id number] #### [facility] [address] [place] [address] eGFRon 11-19-2024 eGFR 85 mL/min/1.73 m2 Normal >=59 [facility] Comment on above: Performed By: #### 1 [id number] ####[facility] [address] [place] [address] BMPon 11-12-2024 Anion gap [Moles/Vol] 7 mmol/L Normal 6-16 [facility] Comment on above: Performed By: #### 2 [id number] #### [facility] [address] [place] [address] Calcium [Mass/Vol] 8.8 mg/dL Low 8.9-11.1 [facility] Comment on above: Performed By: #### 2 [id number] #### [facility] [address] [place] [address] Chloride [Moles/Vol] 97 mmol/L Low 101-111 [facility] Comment on above: Performed By: #### 2 [id number] #### [facility] [address] [place] [address] CO2 [Moles/Vol] 28 mmol/L Normal 21-31 [facility] Comment on above: Performed By: #### 2 [id number] #### [facility] [address] [place] [address] Creatinine [Mass/Vol] 0.9 mg/dL Normal 0.5-1.3 [facility] Comment on above: Performed By: #### 2 [id number] #### [facility] [address] [place] [address] Glucose [Mass/Vol] 106 mg/dL Normal 55-199 [facility] Comment on above: Performed By: #### 2 [id number] #### [facility] [address] [place] [address] Potassium [Moles/Vol] 4.4 mmol/L Normal 3.5-5.3 [facility] Comment on above: Performed By: #### 2 [id number] #### [facility] [address] [place] [address] Sodium [Moles/Vol] 128 mmol/L Low 135-145 [facility] Comment on above: Performed By: #### 2 [id number] #### [facility] [address] [place] [address] Urea nitrogen [Mass/Vol] 12 mg/dL Normal 5-21 [facility] Comment on above: Performed By: #### 2 [id number] #### [facility] [address] [place] [address] Urea nitrogen/Creatinine [Mass ratio] 13 No Units Normal 10-20 [facility] Comment on above: Performed By: #### 2 [id number] #### [facility] [address] [place] [address] CHEMISTRYOrdered By: SYSTEM SYSTEM on 11-12-2024 Anion [...] (Bld) [Mass fraction] 5.4 % Normal <=5.9% [facility] ChemAutoSS [id number] 11-12-2024 HbA1c (Bld) [Mass fraction] 5.4 % Normal <=5.9 [facility] Comment on above: Performed By: #### 7 [id number] #### [facility] [address] [place] [address] Inpatient Patient Summaryon 11-12-2024 Inpatient Patient Summary Inpatient Patient Summary [address] [address] [facility] Clinical Discharge Instructions PERSON INFORMATION Name: DARIEL ZABALA PHYSICIANS Admitting Physician: Axel Hernández DO Attending Physician: Axel Hernández DO PCP: Edwin Garcia MD Discharge Diagnosis: Carpal tunnel syndrome on left Comment: PATIENT EDUCATION INFORMATION Instructions: Edgar Gonzalez Carpal Tunnel Release Instructions (Custom) (CUSTOM) Medication Leaflets: Follow up: With: Address: When: Axel Hernández [address] [place] [address] [facility] (4) Comments: Keep scheduled appointment Type Location Start [facility] Surgery [facility] Surgical Services 11/19/2024 2:15 PM 11/19/2024 2:45 PM Confirmed Cardiology Follow Up (FT) [facility] 12/12/2024 10:15 AM 12/12/2024 10:30 AM Confirmed Medicare Wellness Subsequent [facility] [place] 05/02/2025 8:00 AM 05/02/2025 9:00 AM Confirmed [...] 1. fluticasone nasal (fluticasone Nasal 0.05 mg/inh [place]) USE 1 SPRAY IN EACH NOSTRIL TWICE [...] Tablets By Mouth every day. Comment: Normal [facility] Outpatient Surgery Discharge Instructionon 11-12-2024 Outpatient Surgery Discharge Instruction Outpatient Surgery Discharge Instruction [address] [address] Patient Discharge Instructions PERSON INFORMATION [...] Follow up: With: Address: When: Axel Hernández [address] [place] [address] [facility] (1) Comments: Keep scheduled appointment Type Location Start [facility] Surgery [facility] 11/19/2024 2:15 PM 11/19/2024 2:45 PM Confirmed Cardiology Follow Up (FT) FT.Cardiology Clinic 12/12/2024 10:15 AM 12/12/2024 10:30 AM Confirmed Medicare Wellness Subsequent [facility] [place] 05/02/2025 8:00 AM 05/02/2025 9:00 AM Confirmed Pharmacy Information: You may receive a survey from [employer] asking you to rate your care experience. Your feedback is important and will help us understand what we do well and how we can improve the quality of care we provide to you, your loved ones and our community. It???s an honor to serve you. Thank you for choosing [facility] HERE ARE THE MEDICATION CHANGES THAT [...] 1. fluticasone nasal (fluticasone Nasal 0.05 mg/inh [place]) USE 1 SPRAY IN EACH NOSTRIL TWICE [...] Mouth every day. PATIENT EDUCATION INFORMATION Instructions: [place], [place] [facility] CARPAL TUNNEL RELEASE INSTRUCTIONS Post-Operative Week One You will be in a soft dressing from mid palm to forearm. Please remove dressing two days after surgery. At that point, clean daily with peroxide or betadine and place daily fresh bandaids. Cover for showers with waterproof bandaid, op site occlusive dressing (more content not included)... Normal [facility] TSH With T4fr Reflexon 11-12 TSH Qn 2.17 m[IU]/L Normal 0.34-5.60 [facility] Comment on above: Performed By: #### 1 [id number] #### [facility] [address] [place] [address] eGFRon 11-12-2024 eGFR 85 mL/min/1.73 m2 Normal >=59 [facility] Comment on above: Performed By: #### 1 [id number] #### [facility] [address] [place] [address] Ambulatory Visit Summaryon 1 01-02-2024 Ambulatory Visit Summary Ambulatory Visit Summary VJ DARIEL :1940 Visit Date:11/01/2024 Ambulatory Visit Instructions Your [...] Tab) fluticasone nasal (fluticasone Nasal 0.05 mg/inh [place]) gabapentin (gabapentin 300 mg Cap) glimepiride (glimepiride [...] Appointments Tuesday 9:20 AM EST With: Where: [address] [id number]- Tuesday 2:15 PM EST With: Where: [facility] Services Tuesday 10:15 AM EST With: Dixon Dubose PA-C Where: Cardiology Clinic 2024 8:00 AM EDT With: Where: [address] [address]- Medications What How Much When Instructions Unchanged [...] fluticasone nasal (fluticasone Nasal 0.05 mg/ inh [place]) See instructions USE 1 SPRAY IN EACH [...] for choosing us for your care. 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 [...] Recent) 3074 (more content not included)... Normal [facility] Comment on above: Result Comment: Elec tronically Signed By: Adam COHN, Edwin Lopez.br\Date and Time Signed: 11/01/24 09:42 EST BMPon 10-30-2024 Anion gap [Moles/Vol] 11 mmol/L Normal 6-16 [facility] Comment on above: Performed By: #### 2 [id number] #### [facility] [address] [place] [address] Calcium [Mass/Vol] 9.0 mg/dL Normal 8.9-11.1 [facility] Comment on above: Performed By: #### 2 [id number] #### [facility] [address] [place] [address] Chloride [Moles/Vol] 96 mmol/L Low 101-111 [facility] Comment on above: Performed By: #### 2 838419 #### [facility] [address] [place] [address] CO2 [Moles/Vol] 27 mmol/L Normal 21-31 [facility] Comment on above: Performed By: #### 2 299142 #### [facility] [address] [place] [address] Creatinine [Mass/Vol] 0.9 mg/dL Normal 0.5-1.3 [facility] Comment on above: Performed By: #### 2 [id number] #### [facility] [address] [place] [address] Glucose [Mass/Vol] 87 mg/dL Normal 55-199 [facility] Comment on above: Performed By: #### 2 843482 #### [facility] [address] [place] [address] Potassium [Moles/Vol] 4.7 mmol/L Normal 3.5-5.3 [facility] Comment on above: Performed By: #### 2 495478 #### [facility] [address] [place] [address] Sodium [Moles/Vol] 129 mmol/L Low 135-145 [facility] Comment on above: Performed By: #### 2 594655 #### [facility] [address] [place] [address] Urea nitrogen [Mass/Vol] 15 mg/dL Normal 5-21 [facility] Comment on above: Performed By: #### 2 [id number] #### [facility] [address] [place] [address] Urea nitrogen/Creatinine [Mass ratio] 17 No Units Normal 10-20 [facility] Comment on above: Performed By: #### 2 [id number] #### [facility] [address] [place] [address] CBC w/ Auto Diffon 4 Basophils/100 WBC (Bld) 0.9 % Normal 0.0-2.0 [facility] Comment on above: Performed By: #### 2 [id number] #### [facility] [address] [place] [address] Basophils/Leukocytes Auto (Bld) [Pure # fraction] 0.0 E9/L Normal 0.0-0.2 [facility] Comment on above: Performed By: #### 2 626715 #### [facility] [address] [place] [address] Eosinophils (Bld) [#/Vol] 0.2 E9/L Normal 0.0-0.5 [facility] Comment on above: Performed By: #### 2 749114 #### [facility] [address] [place] [address] Eosinophils/100 WBC (Bld) 3.6 % Normal 0.0-8.0 [facility] Comment on above: Performed By: #### 2 241049 #### [facility] [address] [place] [address] Erythrocyte distribution width (RBC) [Ratio] 13.4 % Normal 10.9-14.2 [facility] Comment on above: Performed By: #### 2 915376 #### [facility] [address] [place] [address] Hematocrit (Bld) [Volume fraction] 36.3 % Low 37.7-49.0 [facility] Comment on above: Performed By: #### 2 589754 #### [facility] [address] [place] [address] Hemoglobin (Bld) [Mass/Vol] 12.8 g/dL Low 13.5-17.5 [facility] Comment on above: Performed By: #### 2 052942 #### [facility] [address] [place] [address] Lymphocytes (Bld) [#/Vol] 1.5 E9/L Normal 1.0-4.0 [facility] Comment on above: Performed By: #### 2 301312 #### [facility] [address] [place] [address] Lymphocytes/100 WBC (Bld) 30.1 % Normal 14.0-50.0 [facility] Comment on above: Performed By: #### 2 861731 #### [facility] [address] [place] [address] MCH (RBC) [Entitic mass] 31.7 pg Normal 27.0-34.0 [facility] Comment on above: Performed By: #### 2 [id number] #### [facility] [address] [place] [address] MCHC (RBC) [Mass/Vol] 35.2 g/dL Normal 31.4-36.0 [facility] Comment on above: Performed By: #### 2 266846 #### [facility] [address] [place] [address] MCV (RBC) [Entitic vol] 90.1 fL Normal 80.0-100.0 [facility] Comment on above: Performed By: #### 2 669472 #### [facility] [address] [place] [address] Monocytes (Bld) [#/Vol] 0.4 E9/L Normal 0.2-1.0 [facility] Comment on above: Performed By: #### 2 170476 #### [facility] [address] [place] [address] Neutrophils (Bld) [#/Vol] 2.9 E9/L Normal 2.0-7.5 [facility] Comment on above: Performed By: #### 2 865191 #### [facility] [address] [place] [address] Neutrophils/100 WBC (Bld) 56.9 % Normal 36.0-75.0 [facility] Comment on above: Performed By: #### 2 613108 #### [facility] [address] [place] [address] Platelet 175.0 E9/L Normal 150.0-500.0 [facility] Comment on above: Performed By: #### 2 092739 #### [facility] [address] [place] [address] Platelet mean volume (Bld) [Entitic vol] 9.1 fL Normal 6.4-10.8 [facility] Comment on above: Performed By: #### 2 355330 #### [facility] [address] [place] [address] RBC (Bld) [#/Vol] 4.0 E12/L Low 4.3-5.9 [facility] Comment on above: Performed By: #### 2 870840 #### [facility] [address] [place] [address] WBC corrected for nucl RBC Auto (Bld) [#/Vol] 5.1 E9/L Normal 4.0-11.0 [facility] Comment on above: Performed By: #### 2 908209 #### [facility] [address] [place] [address] CHEMISTRYOrdered By: SYSTEM SYSTEM on 10-30-2024 Anion [...] 10-30-2024 eGFR 85 mL/min/1.73 m2 Normal >=59 [facility] Comment on above: Performed By: #### 1 [id number] #### [facility] [address] [place] [address] Family Medicine Office/Clini c Noteon 09-10-2024 Family [...] Daily, # 90 tab(s), Refills(s) 0, Pharmacy: [facility], 178, cm, 09/10/24 13:01:00 EDT, [...] Daily, 1 refills fluticasone Nasal 0.05 mg/inh [place], See Instructions gabapentin 300 mg Cap, 300 [...] Diabetes mellitus (more content not included)... 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 Longstanding persistent atrial fibrillation (I48.11: Longstanding persistent atrial fibrillation) Should patient require or opt for a robotic repair he will need to hold his anticoagulation for 5 days prior to the procedure Ordered: E&M of New Patient Low 30-44 Min 99808 Follow-up No qualifying data available Problem List/Past [...] Oral, Daily, 1 refills Flonase 0.05 mg/inh [place], 1 spray(s), Nasal, BID gabapentin 300 mg [...] virus vaccine, inactivated 08/02/2014 Recorded Normal [facility] Comment on above: Result Comment: Elec [...] mg Tab) fluticasone nasal (Flonase 0.05 mg/inh [place]) gabapentin (gabapentin 300 mg Cap) glimepiride (glimepiride [...] AM EST With: Edwin Garcia MD Where: [address] [address]- Tuesday 1:00 PM EST With: Dixon Dubose PA-C Where[facility] 2024 8:00 AM EDT With: Where: [address] [address]- Medications What How Much When Why Instructions [...] Unchanged fluticasone nasal (Flonase 0.05 mg/ inh [place]) 1 Sprays Nasal Inhalation 2 times a [...] choosing us for your care. Normal [facility] Family Medicine Office/Clini c Noteon 08-07-2024 [...] day(s), # 21 tab(s), Refills(s) 0, Pharmacy: [facility]/pharmacy #[id number], 178, cm, 07/31/24 14:02:00 [...] Oral, Daily, 1 refills Flonase 0.05 mg/inh [place], 1 spray(s), Nasal, BID gabapentin 300 mg [...] 1 r (more content not included)... Normal [facility] Comment on above: Result Comment: [...] day(s), # 21 tab(s), Refills(s) 0, Pharmacy: [facility]/pharmacy #[id number], 178, cm, 07/31/24 14:02:00 EDT, Height/Length Dosing, 78.5, kg, 07/31/24 14:02:00 EDT, Weight Dosing tramadol, 50 mg = 1 tab(s), Oral, q4hr, PRN for pain, X 7 day(s), # 21 tab(s), Refills(s) 0, Pharmacy: [facility]/pharmacy #[id number], 178, cm, 07/31/24 14:02:00 [...] Oral, Daily, 1 refills Flonase 0.05 mg/inh [place], 1 spray(s), Nasal, BID gabapentin 300 mg [...] virus vaccine, inactivated 08/02/2014 Recorded Normal [facility] Comment on above: Result Comment: Elec [...] mg Tab) fluticasone nasal (Flonase 0.05 mg/inh [place]) gabapentin (gabapentin 300 mg Cap) glimepiride (glimepiride [...] PM EDT With: Edwin Garcia MD Where: [address] [address]- 2023 9:15 AM EST With: Edwin Garcia MD Where: [address] [address]- Tuesday 1:00 PM EST With: Dixon Dubose PA-C Where: [facility] 2024 8:00 AM EDT With: Where: [address] [address]- Medications What How Much When Instructions Unchanged [...] Unchanged fluticasone nasal (Flonase 0.05 mg/ inh [place]) 1 Sprays Nasal Inhalation 2 times a [...] choosing us for your care. Normal [facility] Family Medicine Office/Clini c Noteon 07-24-2024 Family Medicine Office/Clinic Note Family Medicine Office/Clinic Note HPI Staff Dariel is an 84 year old male presenting for ER follow up ER followup: Hospital: [facility] Visit date: 07/14/24 Symptoms the patient presented [...] patient was under the dosed. Patient stated [place] was helping him more. Patient denies any [...] - Will do Tizanadine - Will do Lewisberry for pain - Follow up in 1 week. - Will send to pain Ordered: [facility] External Ambulatory Referral 2. Inguinal hernia of left side without obstruction or gangrene (K40.90: Unilateral inguinal hernia, without obstruction or gangrene, not specified as recurrent) - Pt cancelled his surgery. - NO pain at this time. - Encouraged follow up Ordered: [facility] External Ambulatory Referral 3. Nonsmoker (Z78.9: Other specified health status) - Please continue to not smoke Ordered: Body Mass Index (BMI) documented 3008F Current tobacco non-user 1036F Depression Screening Negative 3352F [facility] External Ambulatory Referral Most [...] Oral, Daily, 1 refills Flonase 0.05 mg/inh [place], 1 spray(s), Nasal, BID gabapentin 300 mg Cap, 300 mg= 1 cap(s), Oral, Daily, 1 refills glimepiride 2 mg Tab, 2 mg= 1 tab(s), Oral, Daily, 1 refills Jantoven 5 mg oral tablet, 5 mg= 1 tab(s), Oral, Daily levothyroxine 25 mcg (0.025 mg) Tab, 25 mcg= 1 tab(s), Oral, Daily, 1 refills Lewisberry 325 mg-5 mg oral tablet, 1 tab(s), [...] No. Househol (more content not included)... Normal [facility] Comment on above: Result Comment: [...] AM EST With: Edwin Garcia MD Where: [facility] [address] [address]- Tuesday 1:00 PM EST With: Dixon Dubose PA-C Where: [facility] 2024 8:00 AM EDT With: Where: [place] [id number]- Medications What How Much When Instructions Unchanged [...] for choosing us for your care. Normal [facility] Medicine Office/Clini c Noteon 07-03-2024 [...] BID, 16 gram, Refill(s) 0, each nostril, [facility]/pharmacy #[id number], 178, cm, 07/03/24 10:05:00 EDT, Height/Length Dosing, 80.8, kg, 07/03/24 10:05:00 EDT, Weight Dosing gabapentin, 300 mg = 1 cap(s), Oral, Daily, # 90 cap(s), Refills(s) 1, Pharmacy: [facility], 178, cm, 07/03/24 10:05:00 EDT, Height/Length Dosing, 80.8, kg, 07/03/24 10:05:00 EDT, Weight Dosing omeprazole, 40 mg = 1 cap(s), Oral, Daily, # 90 cap(s), Refills(s) 0, Pharmacy: [facility], 178.2, cm, 02/02/24 10:29:00 EDT, Height/Length Dosing, 84.1, kg, 02/02/24 10:29:00 EDT, Weight Dosing sildenafil, 100 mg = 1 tab(s), Oral, Daily, PRN for erectile dysfunction, 1 hour before sexual activity, # 5 tab(s), Refills(s) 0, Pharmacy: [facility], 178, cm, 07/03/24 10:05:00 EDT, Height/Length Dosing, 80.8, kg, 07/03/24 10:05:00 EDT,... 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 Normal [facility] Comment on above: Result Comment: [...] influenza virus vaccine, inactivated 08/02/2014 Recorded Normal [facility] Comment on above: Result Comment: Elec tronically Signed By: Ericka COHN, Kashif Craig\.br\Date and Time Signed: 06/11/24 13:14 EDT CBC w/ Auto Diffon 4 Basophils/100 WBC (Bld) 0.9 % Normal 0.0-2.0 [facility] Comment on above: Performed By: #### 2 [id number] #### [facility] [address] [place] [address] Basophils/Leukocytes Auto (Bld) [Pure # fraction] 0.0 E9/L Normal 0.0-0.2 [facility] Comment on above: Performed By: #### 2 [id number] #### [facility] [address] [place] [address] Eosinophils (Bld) [#/Vol] 0.1 E9/L Normal 0.0-0.5 [facility] Comment on above: Performed By: #### 2 351029 #### [facility] [address] [place] [address] Eosinophils/100 WBC (Bld) 2.4 % Normal 0.0-8.0 [facility] Comment on above: Performed By: #### 2 117299 #### [facility] [address] [place] [address] Erythrocyte distribution width (RBC) [Ratio] 14.4 % High 10.9-14.2 [facility] Comment on above: Performed By: #### 2 355701 #### [facility] [address] [place] [address] Hematocrit (Bld) [Volume fraction] 42.2 % Normal 37.7-49.0 [facility] Comment on above: Performed By: #### 2 342614 #### [facility] [address] [place] [address] Hemoglobin (Bld) [Mass/Vol] 14.0 g/dL Normal 13.5-17.5 [facility] Comment on above: Performed By: #### 2 675758 #### [facility] [address] [place] [address] Lymphocytes (Bld) [#/Vol] 1.4 E9/L Normal 1.0-4.0 [facility] Comment on above: Performed By: #### 2 091028 #### [facility] [address] [place] [address] Lymphocytes/100 WBC (Bld) 34.0 % Normal 14.0-50.0 [facility] Comment on above: Performed By: #### 2 896204 #### [facility] [address] [place] [address] MCH (RBC) [Entitic mass] 30.8 pg Normal 27.0-34.0 [facility] Comment on above: Performed By: #### 2 621200 #### [facility] [address] [place] [address] MCHC (RBC) [Mass/Vol] 33.1 g/dL Normal 31.4-36.0 [facility] Comment on above: Performed By: #### 2 875138 #### [facility] [address] [place] [address] MCV (RBC) [Entitic vol] 92.9 fL Normal 80.0-100.0 [facility] Comment on above: Performed By: #### 2 816622 #### [facility] [address] [place] [address] Monocytes (Bld) [#/Vol] 0.4 E9/L Normal 0.2-1.0 [facility] Comment on above: Performed By: #### 2 866236 #### [facility] [address] [place] [address] Neutrophils (Bld) [#/Vol] 2.2 E9/L Normal 2.0-7.5 [facility] Comment on above: Performed By: #### 2 305592 #### [facility] [address] [place] [address] Neutrophils/100 WBC (Bld) 53.4 % Normal 36.0-75.0 [facility] Comment on above: Performed By: #### 2 002198 #### [facility] [address] [place] [address] Platelet 166.0 E9/L Normal 150.0-500.0 [facility] Comment on above: Performed By: #### 2 353021 #### [facility] [address] [place] [address] Platelet mean volume (Bld) [Entitic vol] 9.8 fL Normal 6.4-10.8 [facility] Comment on above: Performed By: #### 2 371545 #### [facility] [address] [place] [address] RBC (Bld) [#/Vol] 4.5 E12/L Normal 4.3-5.9 [facility] Comment on above: Performed By: #### 2 308600 #### [facility] [address] [place] [address] WBC corrected for nucl RBC Auto (Bld) [#/Vol] 4.2 E9/L Normal 4.0-11.0 [facility] Comment on above: Performed By: #### 2 822429 #### [facility] [address] [place] [address] CHEMISTRYOrdered By: SYSTEM SYSTEM on 05-01-2024 Albumin [...] for this result was chemiluminescence using [employer]'s Access [employer] PSA reagent. Protein [Mass/Vol] 7.1 [...] 05-01-2024 Albumin [Mass/Vol] 4.2 g/dL Normal 3.3-5.0 [facility] Comment on above: Performed By: #### 2 832430 #### [facility] [address] [place] [address] Albumin/Globulin (S) [Mass conc ratio] 1.4 Normal 1.1-2.2 [facility] Comment on above: Performed By: #### 2 902524 #### [facility] [address] [place] [address] ALP [Catalytic activity/Vol] 83 Int._Unit/L Normal 21-98 [facility] Comment on above: Performed By: #### 2 155848 #### [facility] [address] [place] [address] ALT No additional P-5'-P [Catalytic activity/Vol] 14 Int._Unit/L Normal 6-46 [facility] Comment on above: Performed By: #### 2 576371 #### [facility] [address] [place] [address] Anion gap [Moles/Vol] 10 mmol/L Normal 6-16 [facility] Comment on above: Performed By: #### 2 796097 #### [facility] [address] [place] [address] AST [Catalytic activity/Vol] 22 Int._Unit/L Normal 5-43 [facility] Comment on above: Performed By: #### 2 993262 #### [facility] [address] [place] [address] Bilirubin [Mass/Vol] 0.9 mg/dL Normal 0.0-1.1 [facility] Comment on above: Performed By: #### 2 706916 #### [facility] [address] [place] [address] Calcium [Mass/Vol] 9.5 mg/dL Normal 8.9-11.1 [facility] Comment on above: Performed By: #### 2 370555 #### [facility] [address] [place] [address] Chloride [Moles/Vol] 103 mmol/L Normal 101-111 [facility] Comment on above: Performed By: #### 2 771961 #### [facility] [address] [place] [address] CO2 [Moles/Vol] 29 mmol/L Normal 21-31 [facility] Comment on above: Performed By: #### 2 166196 #### [facility] [address] [place] [address] Creatinine [Mass/Vol] 1.1 mg/dL Normal 0.5-1.3 [facility] Comment on above: Performed By: #### 2 447655 #### [facility] [address] [place] [address] Globulin (S) [Mass/Vol] 2.9 g/dL Normal 1.4-4.0 [facility] Comment on above: Performed By: #### 2 215220 #### [facility] [address] [place] [address] Glucose [Mass/Vol] 104 mg/dL Normal 55-199 [facility] Comment on above: Performed By: #### 2 414725 #### [facility] [address] [place] [address] Potassium [Moles/Vol] 5.2 mmol/L Normal 3.5-5.3 [facility] Comment on above: Performed By: #### 2 757033 #### [facility] [address] [place] [address] Protein [Mass/Vol] 7.1 g/dL Normal 6.0-7.8 [facility] Comment on above: Performed By: #### 2 115215 #### [facility] [address] [place] [address] Sodium [Moles/Vol] 137 mmol/L Normal 135-145 [facility] Comment on above: Performed By: #### 2 052880 #### [facility] [address] [place] [address] Urea nitrogen [Mass/Vol] 15 mg/dL Normal 5-21 [facility] Comment on above: Performed By: #### 2 123382 #### [facility] [address] [place] [address] Urea nitrogen/Creatinine [Mass ratio] 14 No Units Normal 10-20 [facility] Comment on above: Performed By: #### 2 394818 #### [facility] [address] [place] [address] HEMATOLOGYOrdered By: SYSTEM SYSTEM on 05-01-2024 Basophils/100 [...] 05-01-2024 Cholesterol [Mass/Vol] 168 mg/dL Normal 120-200 [facility] Comment on above: Performed By: #### 2 286349 #### [facility] [address] [place] [address] Cholesterol in HDL [Mass/Vol] 54 mg/dL Invalid Interpretation Code [facility] Comment on above: Result Comment: '>= 60 LOW RISK' '<= 40 HIGH RISK' Performed By: #### 2 451638 #### [facility] [address] [place] [address] Cholesterol in LDL [Mass/Vol] 99 mg/dL Normal <=129 [facility] Comment on above: Performed By: #### 2 816590 #### [facility] [address] [place] [address] Cholesterol in VLDL [Mass/Vol] 16 mg/dL Normal 7-40 [facility] Comment on above: Performed By: #### 2 934847 #### [facility] [address] [place] [address] Triglyceride [Mass/Vol] 78 mg/dL Normal <=149 [facility] Comment on above: Performed By: #### 2 245038 #### [facility] [address] [place] [address] PSA Screen, Totalon 05-01-20 24 Prostate specific Ag [Mass/Vol] 1.3 ng/mL Normal 0.1-3.5 [facility] Comment on above: Result Comment: The concentration of PSA determined by different manufacturers can vary due to differences in assay methods and reagent specificity. Values obtained from different assay methods cannot be used interchangeably. The methodology used for this result was chemiluminescence using [employer]'s Access Hybritech PSA reagent. Performed By: #### 1 [id number] #### [facility] [address] [place] [address] CHEMISTRYOrdered By: Lab ROP User on 03-26-2024 Glucose [Mass/Vol] 92 mg/dL Normal 55 - 99 mg/dL [facility] POC Subsection Comment on above: Result Comment: Justine garcia RN/ POC Device SN [id number] 1 Invalid Interpretation Code [facility] POC Subsection POC User ID [id number] 1 Invalid Interpretation Code [facility] POC Subsection POC Username LORNA WILSON Invalid Interpretation Code [facility] POC Subsection COAGULATIONOrdered By: Toshia Tadeo on 03-26-2024 aPTT Coag (PPP) [Time] 35.8 s Normal 25.1 - 36.5 second(s) [facility] Auto Coag Comment on [...] the same coagulation reagent and instrumentation as [facility]. Currently there are no coagulation studies available worldwide for children to 14 days, and no normal ranges. Heparin therapeutic range (represented by Anti-Factor Xa activity of 0.2 - 0.4 U/mL) corresponds to PTT of 56.6 - 109.0 sec. INR Coag (PPP) [Relative time] 1.19 {INR} Invalid Interpretation Code [facility] Auto Coag Comment on above: Interpretive Data: I NR results are specifically intended to assess patients stabilized on long-term Anticoagulation therapy suggested INR s Less Intensive Anticoagulation 2.0 3.0 Conventional Range 3.0 4.5 PT Coag (PPP) [Time] 13.4 s High 9.4 - 1 2.5 second(s) [facility] Auto Coag Comment on [...] the same coagulation reagent and instrumentation as [facility] [place]. Currently there are no [...] (Bld) [Mass fraction] 5.6 % Normal <=5.9% [facility] ChemAutoSS HEMATOLOGYOrdered By: SYSTEM [...] Normal 80.0 - 100.0 fL Remisol Heme [place] Absolute 0.5 E9/L Normal 0.2 - 1.0 [...] Heme Basic Metabolic Panelon 12-2 Calcium [Mass/Vol] 9.0550940 mg/dL Normal 8.6-10 .3 mg/dL [employer] Other Chloride [Moles/Vol] 102 mmol/L Normal 98-107 mmol/L [employer] Other CO2 [Moles/Vol] 32.60308267 mmol/L High 21.0-3 1.0 mmol/L [employer] Other Creatinine [Mass/Vol] 1.19219662 mg/dL Normal 0. 70-1.30 mg/dL [employer] Other GFR/1.73 sq M.predicted MDRD (S/P/Bld) [Vol rate/Area] mL/min/{1.73_m2} [employer] Other Glucose [Mass/Vol] 93 mg/dL Normal 70-100 mg/dL [employer] Other Potassium [Moles/Vol] 4.79008232 mmol/L Normal 3 .5-5.1 mmol/L [employer] Other Sodium [Moles/Vol] 138 mmol/L Normal 136-145 mmol/L [employer] Other Urea nitrogen [Mass/Vol] 13 mg/dL Normal 7-25 mg/dL [employer] Other Complete Blood Count Auto Di ffon 11-02-2023 Basophils (Bld) [#/Vol] 0.411369560 10*3/uL Normal 0.0-0.2 10*3/uL [employer] Other Basophils/100 WBC (Bld) 1.000 % . % [employer] Other Eosinophils (Bld) [#/Vol] 0.884136211 10*3/uL Normal 0.0-0.45 10*3/uL [employer] Other Eosinophils/100 WBC (Bld) 2.100 % . % [employer] Other Erythrocyte distribution width (RBC) [Ratio] 14.000 % Normal 12.0-14.8 % [employer] Other Hematocrit (Bld) [Volume fraction] 38.800 % Normal 38.8-50.0 % [employer] Other Hemoglobin (Bld) [Mass/Vol] 13.270872 g/dL Normal 13.0-17.0 g/dL [employer] Other Lymphocytes (Bld) [#/Vol] 1.268285601 10*3/uL Normal 1.00-4.8 10*3/uL [employer] Other Lymphocytes/100 WBC (Bld) 21.800 % . % [employer] Other MCH (RBC) [Entitic mass] 31.5000 pg Normal 27.5-35.2 pg [employer] Other MCV (RBC) [Entitic vol] 92.7000 fL Normal 83.5-101 fL [employer] Other Monocytes (Bld) [#/Vol] 0.920854129 10*3/uL Normal 0.0-0.8 10*3/uL [employer] Other Monocytes/100 WBC (Bld) 8.500 % . % [employer] Other Neutrophils (Bld) [#/Vol] 4.655406740 10*3/uL Normal 1.8-7.7 10*3/uL [employer] Other Neutrophils/100 WBC (Bld) 66.600 % . % [employer] Other Platelet mean volume (Bld) [Entitic vol] 9.4000 fL Normal 6.6-10.1 fL [employer] Other Platelets (Bld) [#/Vol] 153 10*3/uL Normal 150-450 10*3/uL [employer] Other RBC (Bld) [#/Vol] 4.19 10*6/uL Normal 3.90-5.60 [employer] Other WBC (Bld) [#/Vol] 6.900174505 10*3/uL Normal 4.1 -10.5 10*3/uL [employer] Other Complete Blood Count Auto Diff 6.1 10*3/uL Normal 4.1-10.5 10*3/uL [employer] Other Complete Blood Count Auto Diff 34.0 g/dL Normal 32.5-35.6 g/dL [employer] Other Complete Blood Count Auto Diff 0.1 /100{WBC} Normal 0-0.5 /100{WBC} [employer] Other Prothrombin Time INRon 06-16 INR Coag (PPP) [Relative time] 2.4 {INR} [employer] Other PT Coag (PPP) [Time] 27.800 s High 9.0-12.9 s Nort [facility] Other Coding Summaryon 05-12-2020 Coding Summary CODING DATE: 05/12/[address] [facility] STATUS: Home PAYOR: Medicare MC ADMIT [...] Horan Date Saved: 05/12/2020 02:18 pm Normal [facility] ED Clinical Summaryon 2019 ED Clinical Summary [facility] ? Urgent Care [address] [place] [address] Clinical Summary PERSON INFORMATION Name: DARIEL ZABALA Age: 80 Years Sex: MALE : 1940 MRN: Acct#: Visit Reason: UC - Ear Problem; BILAT EAR PROBLEM Arrival: 05/08/2020 09:32:00 Discharge: 05/08/2020 10:15:00 LOS: 000 00:43 Check In: 05/08/2020 09:32:00 Checkout: 05/08/2020 10:15:00 Address: [address] [place], [place] [id number] PCP: Provider, Unlisted PROVIDER INFORMATION Provider Role [...] Earwax Buildup, Adult Follow-Up: With: Address: When: [facility], [address] [place] [address] [phone] Business (1) Comments: Please follow-up with your Doctor or Dr. Arellano Medical Doctor grain origination specialist, call their offices and make ointment to be seen in 3 days or sooner for continued care, please purchase pugx-qtk-ihytocg Debrox which helps breakdown earwax, take all your medications as previously prescribed, drink plenty of water for hydration, and return back to urgent care center for any worsening symptoms, concerns, or complications. DIAGNOSIS: 1:Impacted cerumen of both ears Patient Understands: Yes - Patient/family/careg iver verbalizes understanding of instructions given Comment: Normal [facility] ED Patient Summaryon 020 ED Patient Summary [facility] ? Urgent Care [address] [place], [place] [id number] PATIENT DISCHARGE INSTRUCTIONS Patient Information Name: DARIEL ZABALA Age: 80 Years Date of : 1940 Reason For Visit: UC - Ear Problem; BILAT EAR PROBLEM Arrival Time: 05/08/2020 09:32:00 Primary Care Physician: Provider, Unlisted Attending Physician: Larry Billingsley PA-C Comment: Patient Education With: Address: When: [facility], [address] [place] [phone] Business (1) Comments: Please follow-up with your Doctor or Dr. Arellano Medical Doctor grain origination specialist, call their offices and make ointment to be seen in 3 days or sooner for continued care, please purchase hjmx-crk-tyzzqgu Debrox which helps breakdown earwax, take all [...] Follow these instructions at home: ? Take ciii-gzu-hbmxwce and prescription medicines only as told by [...] clean them according to instructions from the career specialist and your health care provider. Contact [...] 12/08/2005 Document Revised: 10/12/2018 Document Reviewed: 01/11/2018 [employer] Patient Education ? 2019 [employer] Medication Information: The exam and treatment you received today in the [facility] Emergency Department were for an urgent problem and are not intended as complete care. It is important for you to follow up with a doctor, nurse practitioner, or physician?s social worker assistant for ongoing care. If your symptoms [...] so we can reach you if necessary. [facility] Emergency Department has provided you with a complete list of medications post discharge. Please inform your loading manager/provider of your visit and for further instruction [...] both ears (H61.23) UC - Ear Problem ([id number]) If you received any narcotics, sedation, or [...] Control and Prevention July [address] [facility] Patient Handouton 05-08-2020 Patient Handout [...] Follow these instructions at home: ? Take nrkz-wxj-ivcavpr and prescription medicines only as told by [...] clean them according to instructions from the career specialist and your health care provider. Contact [...] 12/08/2005 Document Revised: 10/12/2018 Document Reviewed: 01/11/2018 [employer] Patient Education ? 2019 [employer]. Normal [facility] Urgent Care [place] 020 Urgent Care Record [facility] ? Urgent Care [address] [place] [id number] PATIENT DISCHARGE INSTRUCTIONS Patient Information Name: DARIEL ZABALA Age: 80 Years Date of : 1940 Reason For Visit: UC - Ear Problem; BILAT EAR PROBLEM Arrival Time: 05/08/2020 09:32:00 Primary Care Physician: Provider, Unlisted Attending Physician: Larry Billingsley PA-C Comment: Visit Diagnosis: Diagnoses This Visit Impacted cerumen of both ears (H61.23) UC - Ear Problem ([id number]) If you received any narcotics, sedation, or [...] legal documents With: Address: When: Andrés Arellano [facility], [address] [place] [phone] Business (1) Comments: Please follow-up with your Doctor or Dr. Arellano, Medical Doctor grain origination specialist, call their offices and make ointment to be seen in 3 days or sooner for continued care, please purchase hzgw-srf-xajeuue Debrox which helps breakdown earwax, take all your medications as previously prescribed, drink plenty of water for hydration, and return back to urgent care center for any worsening symptoms, concerns, or complications. Medication Information: The exam and treatment you received today in the [facility] were for an urgent problem and are not intended as complete care. It is important for you to follow up with a doctor, nurse practitioner, or physician?s social worker assistant for ongoing care. If your symptoms [...] can reach you if necessary. [facility] has provided you with a complete list of medications post discharge. Please inform your loading manager/provider of your visit and for further instruction [...] Follow these instructions at home: ? Take wngr-srs-rdiapjd and prescription medicines only as told by [...] clean them according to instructions from the career specialist and your health care provider. Contact [...] 12/08/2005 Document Revised: 10/12/2018 Document Reviewed: 01/11/2018 [employer] Patient Education ? 2019 [employer] Viruses or Bacteria What?s got you [...] Control and Prevention July [address] [facility] Vital Signs Date Time Vital Sign Value Performing Clinician Facility 07-23-2025 13:28-0400 Body temperature 98.3 [degF] Yanique Mcneill BEAUTY THERAPIST-BC Work Phone: [facility] 07-23-2025 13:28-0400 Diastolic blood pressure 65 mm[Hg] Yanique Mcneill BEAUTY THERAPIST-BC Work Phone: [facility] 07-23-2025 13:28-0400 Heart rate 65 /min Yanique Mcneill BEAUTY THERAPIST-[employer] Work Phone: [facility] 07-23-2025 13:28-0400 Respiratory rate 18 /min Yanique Mcneill BEAUTY THERAPIST-[employer] Work Phone: [facility] 07-23-2025 13:28-0400 SaO2% (BldA) [Mass fraction] 98 % Yanique Mcneill BEAUTY THERAPIST-BC Work Phone: [facility] 07-23-2025 13:28-0400 Systolic blood pressure 140 mm[Hg] Yanique Mcneill BEAUTY THERAPIST-BC Work Phone: [facility] 07-23-2025 06:00-0400 Body weight 75.5 kg Yanique Mcneill BEAUTY THERAPIST-[employer] Work Phone: [facility] 07-22-2025 12:49-0400 Body height 180.34 cm Yanique Mcneill BEAUTY THERAPIST-[employer] Work Phone: [facility] 06-23-2025 11:50-0400 Body temperature 97.7 [degF] Erika Crisostomo MD Work Phone: [employer] 06-23-2025 11:50-0400 Diastolic blood pressure 63 mm[Hg] Erika Crisostomo MD Work Phone: [facility] 06-23-2025 11:50-0400 Heart rate 67 /min Erika Crisostomo MD Work Phone: [facility] 06-23-2025 11:50-0400 Respiratory rate 16 /min Erika Crisostomo MD Work Phone: [facility] [facility] 06-23-2025 11:50-0400 SaO2% (BldA) [Mass fraction] 99 % Erika Crisostomo MD Work Phone: [facility] [facility] 06-23-2025 11:50-0400 Systolic blood pressure 114 mm[Hg] Erika Crisostomo MD Work Phone: [facility] 06-23-2025 04:38-0400 Body mass index (BMI) [Ratio] 22.65 kg/m2 Erika Crisostomo MD Work Phone: [facility] 06-23-2025 04:38-0400 Body weight 71.6 kg Erika Crisostomo MD Work Phone: [facility] 06-19-2025 12:37-0400 Body height 177.8 cm Erika Crisostomo MD Work Phone: [facility] [facility] 06-05-2025 15:00-0400 Diastolic blood pressure 47 mm[Hg] Axel Monet DO Work Phone: [employer] 06-05-2025 15:00-0400 Heart rate 71 /min Axel Monet DO Work Phone: [employer] 06-05-2025 15:00-0400 Respiratory rate 15 /min Axel Monet DO Work Phone: [employer] 06-05-2025 15:00-0400 Systolic blood pressure 110 mm[Hg] Axel Monet DO Work Phone: [facility] 06-05-2025 13:00-0400 Body temperature 97.7 [degF] Axel Wingrommel Work Phone: [facility] 06-05-2025 06:30-0400 SaO2% (BldA) [Mass fraction] 100 % Axel Monet DO Work Phone: [facility] 06-05-2025 04:00-0400 Body mass index (BMI) [Ratio] 26.48 kg/m2 Axel Monet DO Work Phone: [facility] 06-05-2025 04:00-0400 Body weight 83.7 kg Axel Wingripdomitila ELLIS Work Phone: [facility] 06-02-2025 10:06-0400 Body height 177.8 cm Axel Tierney ELLIS Work Phone: [facility] 11-26-2024 10:27-0500 Body mass index (BMI) [Ratio] 24.74 kg/m2 Emiliano Escamilla MD Work Phone: [facility] 11-26-2024 10:27-0500 Body weight 77.11 kg Emiliano Escamilla MD Work Phone: [facility] 11-26-2024 10:27-0500 Diastolic blood pressure 73 mm[Hg] Emiliano Escamilla MD Work Phone: [facility] 11-26-2024 10:27-0500 Heart rate 87 /min Emiliano Escamilla MD Work Phone: [facility] 11-26-2024 10:27-0500 Systolic blood pressure 148 mm[Hg] Emiliano Escamilla MD Work Phone: [facility] 11-19-2024 14:27-0500 Diastolic blood pressure 82 mm[Hg] Axel Hernández [facility] 11-19-2024 14:27-0500 Heart rate 66 /min Axel Hernández [facility] 11-19-2024 14:27-0500 Mean blood pressure 103 mm[Hg] Axel Edgar [facility] 11-19-2024 14:27-0500 Respiratory rate 18 /min Axel Edgar [facility] 11-19-2024 14:27-0500 SaO2% (BldA) [Mass fraction] 95 % Axel Egdar [facility] 11-19-2024 14:27-0500 Systolic blood pressure 144 mm[Hg] Axel Edgar [facility] 11-19-2024 13:23-0500 Blood Pressure Location Axel Edgar [facility] 11-19-2024 13:23-0500 Body temperature 96.8 [degF] Axel Edgar [facility] 11-19-2024 13:23-0500 Diastolic blood pressure 69 mm[Hg] Axel Edgar [facility] 11-19-2024 13:23-0500 Heart rate 63 /min Axel Edgar [facility] 11-19-2024 13:23-0500 Mean blood pressure 92 mm[Hg] Axel Edgar [facility] 11-19-2024 13:23-0500 Respiratory rate 20 /min Axel Edgar [facility] 11-19-2024 13:23-0500 SaO2% (BldA) [Mass fraction] 99 % Axel Edgar [facility] 11-19-2024 13:23-0500 Systolic blood pressure 139 mm[Hg] Axel Hernández [facility] 11-19-2024 13:05-0500 Body temperature 97.34 [degF] Axel Hernández [facility] 11-19-2024 13:05-0500 Diastolic blood pressure 69 mm[Hg] Axel Edgar [facility] 11-19-2024 13:05-0500 Heart rate 65 /min Axel Edgar [facility] 11-19-2024 13:05-0500 Mean blood pressure 87 mm[Hg] Axel Edgar [facility] 11-19-2024 13:05-0500 Respiratory rate 16 /min Axel Edgar [facility] 11-19-2024 13:05-0500 SaO2% (BldA) [Mass fraction] 97 % Axel Edgar [facility] 11-19-2024 13:05-0500 Systolic blood pressure 122 mm[Hg] Axel Edgar [facility] 11-19-2024 12:40-0500 Body temperature 97.7 [degF] Axel Edgar [facility] 11-19-2024 12:35-0500 Respiratory rate 12 /min Axel Edgar [facility] 11-19-2024 12:30-0500 Body temperature 96.8 [degF] Axel Edgar [facility] 11-19-2024 12:30-0500 Respiratory rate 13 /min Axel Edgar [facility] 11-19-2024 12:25-0500 Body temperature 96.8 [degF] Axel Edgar [facility] 11-19-2024 12:25-0500 Respiratory rate 15 /min Axel Hernández [facility] 11-19-2024 12:20-0500 Body temperature 96.8 [degF] Axel Hernández [facility] 11-19-2024 09:55-0500 Mean blood pressure 85 mm[Hg] Axel Edgar [facility] 11-19-2024 09:52-0500 Mean blood pressure 79 mm[Hg] Axel Edgar [facility] 10-30-2024 10:36-0500 Diastolic blood pressure 67 mm[Hg] Axel Edgar [facility] 10-30-2024 10:36-0500 Heart rate 57 /min Axel Edgar [facility] 10-30-2024 10:36-0500 Mean blood pressure 86 mm[Hg] Axel Edgar [facility] 10-30-2024 10:36-0500 Systolic blood pressure 124 mm[Hg] Axel Edgar [facility] 10-30-2024 10:34-0500 Heart rate 56 /min Axel Edgar [facility] 10-30-2024 10:34-0500 SaO2% (BldA) [Mass fraction] 100 % Axel Hernández [facility] 10-30-2024 10:34-0500 Diastolic blood pressure 83 mm[Hg] Axel Edgar [facility] 10-30-2024 10:34-0500 Mean blood pressure 105 mm[Hg] Axel Edgar [facility] 10-30-2024 10:34-0500 Systolic blood pressure 148 mm[Hg] Axel Hernández [facility] 10-03-2024 10:58-0500 Body height 176.5 cm Axel Hernández DO Work Phone: [facility] 10-03-2024 10:58-0500 Body mass index (BMI) [Ratio] 26.64 kg/m2 Axel Hernández DO Work Phone: [facility] 10-03-2024 10:58-0500 Body temperature 98.1 [degF] Axel Hernández DO Work Phone: [facility] 10-03-2024 10:58-0500 Body weight 83.01 kg Axel Hernández DO Work Phone: [facility] 08-28-2024 14:47-0400 Blood Pressure Location Davie Malkatarah [facility] 08-28-2024 14:47-0400 Diastolic blood pressure 75 mm[Hg] Davie Malkay [facility] 08-28-2024 14:47-0400 Heart rate 65 /min Davie Mourany [facility] 08-28-2024 14:47-0400 Respiratory rate 16 /min Davie Malkay [facility] 08-28-2024 14:47-0400 Systolic blood pressure 119 mm[Hg] Davie Hudsonurany [facility] 06-11-2024 12:48-0400 Diastolic blood pressure 78 mm[Hg] Kashif Kirnus [facility] 06-11-2024 12:48-0400 Heart rate 70 /min Kashif Kirnus [facility] 06-11-2024 12:48-0400 Respiratory rate 18 /min Kashif Kirnus [facility] 06-11-2024 12:48-0400 SaO2% (BldA) [Mass fraction] 97 % Kashif Kirnus [facility] 06-11-2024 12:48-0400 Systolic blood pressure 138 mm[Hg] Kashif Kirnus [facility] 05-30-2024 13:31-0400 Blood Pressure Location Dixon Dubose [facility] 05-30-2024 13:31-0400 Diastolic blood pressure 70 mm[Hg] Dixon Dubose [facility] 05-30-2024 13:31-0400 Heart rate 75 /min Dixon Dubose [facility] 05-30-2024 13:31-0400 Respiratory rate 18 /min Dixon Dubose [facility] 05-30-2024 13:31-0400 SaO2% (BldA) [Mass fraction] 95 % Dixon Dubose [facility] 05-30-2024 13:31-0400 Systolic blood pressure 130 mm[Hg] Dixon Dubose [facility] 04-20-2024 13:17-0400 Diastolic blood pressure 78 mm[Hg] Kashif Kirnus [facility] 04-20-2024 13:17-0400 Heart rate 62 /min Kashif Kirnus [facility] 04-20-2024 13:17-0400 SaO2% (BldA) [Mass fraction] 97 % Kashif Kirnus [facility] 04-20-2024 13:17-0400 Systolic blood pressure 138 mm[Hg] Kashif Kirnus [facility] 03-26-2024 14:30-0400 Diastolic blood pressure 64 mm[Hg] Axel Hernández [facility] 03-26-2024 14:30-0400 Heart rate 50 /min Axel Hernández [facility] 03-26-2024 14:30-0400 Respiratory rate 16 /min Axel Hernández [facility] 03-26-2024 14:30-0400 SaO2% (BldA) [Mass fraction] 98 % Axel Hernández [facility] 03-26-2024 14:30-0400 Systolic blood pressure 128 mm[Hg] Axel Edgar [facility] 03-26-2024 13:31-0400 Heart rate 54 /min Axel Edgar [facility] 03-26-2024 13:31-0400 SaO2% (BldA) [Mass fraction] 97 % Axel Edgar [facility] 03-26-2024 13:31-0400 Respiratory rate 16 /min Axel Edgar [facility] 03-26-2024 13:30-0400 Body temperature 97.34 [degF] Axel Edgar [facility] 03-26-2024 13:29-0400 Blood Pressure Location Axel Edgar [facility] 03-26-2024 13:29-0400 Diastolic blood pressure 70 mm[Hg] Axel Edgar [facility] 03-26-2024 13:29-0400 Mean blood pressure 88 mm[Hg] Axel Edgar [facility] 03-26-2024 13:29-0400 Systolic blood pressure 125 mm[Hg] Axel Edgar [facility] 03-26-2024 13:20-0400 Body temperature 97.52 [degF] Axel Edgar [facility] 03-26-2024 13:20-0400 Diastolic blood pressure 63 mm[Hg] Axel Hernández [facility] 03-26-2024 13:20-0400 Heart rate 54 /min Axel Edgar [facility] 03-26-2024 13:20-0400 Mean blood pressure 77 mm[Hg] Axel Hernández [facility] 03-26-2024 13:20-0400 Respiratory rate 15 /min Axel Edgar [facility] 03-26-2024 13:20-0400 SaO2% (BldA) [Mass fraction] 97 % Axel Edgar [facility] 03-26-2024 13:20-0400 Systolic blood pressure 104 mm[Hg] Axel Edgar [facility] 03-26-2024 13:15-0400 Mean blood pressure 73 mm[Hg] Axel Edgar [facility] 03-26-2024 13:15-0400 Respiratory rate 15 /min Axel Edgar [facility] 03-26-2024 13:10-0400 Mean blood pressure 72 mm[Hg] Axel Edgar [facility] 03-26-2024 13:10-0400 Respiratory rate 11 /min Axel Edgar [facility] 03-26-2024 12:55-0400 Body temperature 97.52 [degF] Axel Edgar [facility] 03-26-2024 12:50-0400 Respiratory rate 1 /min Axel Edgar [facility] 03-26-2024 09:36-0400 Blood Pressure Location Axel Edgar [facility] 03-26-2024 09:36-0400 Mean blood pressure 112 mm[Hg] Axel Hernández [facility] 03-26-2024 09:34-0400 Mean blood pressure 97 mm[Hg] Axel Hernández [facility] 03-26-2024 09:34-0400 Body temperature 97.34 [degF] Axel Hernández [facility] 03-26-2024 09:34-0400 Blood Pressure Location Axel Edgar [facility] 03-26-2024 09:34-0400 Heart rate 50 /min Axel Edgar [facility] 03-06-2024 08:11-0400 Blood Pressure Location Axel Edgar [facility] 03-06-2024 08:11-0400 Diastolic blood pressure 74 mm[Hg] Axel Edgar [facility] 03-06-2024 08:11-0400 Heart rate 56 /min Axel Edgar [facility] 03-06-2024 08:11-0400 Mean blood pressure 98 mm[Hg] Axel Edgar [facility] 03-06-2024 08:11-0400 Systolic blood pressure 147 mm[Hg] Axel Edgar [facility] 03-06-2024 08:11-0400 Heart rate 57 /min Axel Edgar [facility] 03-06-2024 08:11-0400 SaO2% (BldA) [Mass fraction] 98 % Axel Edgar [facility] 03-06-2024 08:10-0400 Blood Pressure Location Axel Edgar [facility] 03-06-2024 08:10-0400 Body temperature 98.06 [degF] Axel Edgar [facility] 03-06-2024 08:10-0400 Diastolic blood pressure 73 mm[Hg] Axel Hernández [facility] 03-06-2024 08:10-0400 Mean blood pressure 92 mm[Hg] Axel Hernández [facility] 03-06-2024 08:10-0400 Systolic blood pressure 129 mm[Hg] Axel Hernández [facility] 03-06-2024 08:10-0400 Respiratory rate 18 /min Axel Hernández [facility] 11-18-2023 11:00-0500 Body height 180.34 cm Jada Rene Other [employer] Other 11-18-2023 11:00-0500 Body mass index (BMI) [Ratio] 25.38 kg/m2 Jadamary Rene Other [employer] Other 11-18-2023 11:00-0500 Body temperature 97.6 [degF] Jadamary Rene Other [employer] Other 11-18-2023 11:00-0500 Body weight 82.56 kg Jada Rene Other [employer] Other 11-18-2023 11:00-0500 Diastolic blood pressure 80 mm[Hg] Jada Rene Other [employer] Other 11-18-2023 11:00-0500 Respiratory rate 18 /min Jada Rene Other [employer] Other 11-18-2023 11:00-0500 SaO2% (BldA) [Mass fraction] 99 % Jadamary Rene Other [employer] Other 11-18-2023 11:00-0500 Systolic blood pressure 132 mm[Hg] Jadayomi Rene Other [employer] Other 11-02-2023 13:00-0500 Body height 180.34 cm Jadamary Rene Other [employer] Other 11-02-2023 13:00-0500 Body mass index (BMI) [Ratio] 24.4 kg/m2 Jada Rene Other [employer] Other 11-02-2023 13:00-0500 Body weight 79.38 kg Jada Rene Other [employer] Other 11-02-2023 13:00-0500 Diastolic blood pressure 82 mm[Hg] Jada Rene Other [employer] Other 11-02-2023 13:00-0500 Respiratory rate 18 /min Jadayomi Rene Other [employer] Other 11-02-2023 13:00-0500 SaO2% (BldA) [Mass fraction] 97 % Jada Rene Other [employer] Other 11-02-2023 13:00-0500 Systolic blood pressure 138 mm[Hg] Jada Rene Other [employer] Other 09-21-2023 10:00-0500 Body height 180.34 cm Jadayomi Rene Other [employer] Other 09-21-2023 10:00-0500 Body mass index (BMI) [Ratio] 25.81 kg/m2 Jada Rene Other [employer] Other 09-21-2023 10:00-0500 Body weight 83.96 kg Jada Edgard Other [employer] Other 09-21-2023 10:00-0500 Diastolic blood pressure 70 mm[Hg] Jada Rene Other [employer] Other 09-21-2023 10:00-0500 Respiratory rate 18 /min Jada Rene Other [employer] Other 09-21-2023 10:00-0500 SaO2% (BldA) [Mass fraction] 98 % Jada Rene Other [employer] Other 09-21-2023 10:00-0500 Systolic blood pressure 140 mm[Hg] Jada Rene Other [employer] Other 06-16-2023 11:00-0400 Body height 180.34 cm Jada Rene Other [employer] Other 06-16-2023 11:00-0400 Body mass index (BMI) [Ratio] 23.79 kg/m2 Jada Rene Other [employer] Other 06-16-2023 11:00-0400 Body weight 77.38 kg Jada Rene Other [employer] Other 06-16-2023 11:00-0400 Diastolic blood pressure 64 mm[Hg] Jada Rene Other [employer] Other 06-16-2023 11:00-0400 Respiratory rate 18 /min Jada Rene Other [employer] Other 06-16-2023 11:00-0400 SaO2% (BldA) [Mass fraction] 98 % Jada Rene Other [employer] Other 06-16-2023 11:00-0400 Systolic blood pressure 118 mm[Hg] Jada Rene Other [employer] Other Encounters Encounter Date Encounter Type Care Provider Facility Start: 05-13-2026 ambulatory YANIQUE A REYES Facili ty:[facility] [place] Start: 09-23-2025 ambulatory Jaden L Jules Facility: [facility] Start: 09-04-2025 ambulatory Jaden L Jules Facility: [facility] Start: 08-26-2025 End: 08-26-2025 ambulatory YANIQUE A REYES Facility:[facility] [facility] Start: 08-21-2025 ambulatory YANIQUE A REYES Facili ty:[id number] Start: 08-08-2025 ambulatory YANIQUE A REYES Facili ty:[facility] Start: 08-05-2025 End: 08-06-2025 ambulatory YANIQUE A REYES Facility:[id number] Start: 07-31-2025 ambulatory Zechariah Rashel CREWS Facility : [place] Start: 07-25-2025 End: 07-25-2025 ambulatory YANIQUE A REYES Facility:[facility] [place] Start: 07-24-2025 ambulatory YANIQUE REYES Facility : [place] Start: 07-24-2025 End: 07-31-2025 ambulatory YANIQUE A REYES Facility:[id number] Start: 07-22-2025 End: 07-22-2025 External Result Encounter Win Santillan DO Work Phone: [facility] External Department Unsolicited Start: 07-22-2025 End: 07-22-2025 External Result Encounter Win Santillan DO Work Phone: [facility] External Department Unsolicited Start: 07-21-2025 End: 07-21-2025 External Result Encounter Win Santillan DO Work Phone: [facility] External Department Unsolicited Start: 07-21-2025 End: 09-07-2025 External Result Encounter Win C Laffay DO Work Phone: [facility] External Department Unsolicited Start: 07-19-2025 Non-patient / Non-visit Axel marshall MD -[facility] Infect Dis Work Phone: Start: 07-19-2025 End: 07-23-2025 Evaluation and management of inpatient Mohamad Billy Facility:[facility] Start: 07-11-2025 End: 07-11-2025 ambulatory YANIQUE A REYES Facility:[facility] [place] Start: 07-08-2025 End: 07-08-2025 ambulatory Jaden L Jules Facility:[facility] Start: 07-05-2025 End: 07-22-2025 ambulatory YANIQUE A REYES Facility:[id number] Start: 07-04-2025 End: 07-04-2025 ambulatory YANIQUE A REYES Facility:[facility] Start: 06-19-2025 ambulatory YANIQUE A REYES Facili ty:[facility] [place] Start: 06-17-2025 End: 06-23-2025 Evaluation and management of inpatient Ehad Tere COHN Work Phone: [facility] - GEN 8 Acute Comment on above: 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 ([facility]) (Primary Dx) Start: 06-14-2025 End: 06-18-2025 ambulatory YANIQUE A REYES Facility:CD:[id number] Start: 06-13-2025 End: 06-13-2025 ambulatory YANIQUE A REYES Facility:[facility] [place] Start: 06-07-2025 End: 06-13-2025 ambulatory YANIQUE A REYES Facility:[id number] Start: 06-07-2025 End: 06-07-2025 ambulatory YANIQUE A REYES Facility:[facility] [place] Start: 06-02-2025 End: 06-05-2025 Evaluation and management of inpatient Axel Monet DO Work Phone: [facility] Comment on above: Hyponatremia (Primar y Dx) Start: 05-20-2025 End: 05-20-2025 Lab Drop off YANIQUE MCNEILL [facility] Start: 05-20-2025 End: 05-20-2025 ambulatory YANIQUE MCNEILL Facility:[facility] [place] Start: 05-09-2025 End: 05-09-2025 ambulatory Edwin Garcia Facility:[facility] Start: 02-05-2025 End: 02-06-2025 Lab Drop off Edwin Garcia [facility] Start: 02-05-2025 End: 02-06-2025 ambulatory Edwin Garcia Facility:[facility] [place] Start: 01-24-2025 End: 01-24-2025 Lab Drop off Edwin Garcia [facility] Start: 01-24-2025 End: 01-24-2025 ambulatory Edwin Garcia Facility:[facility] [place] Start: 01-09-2025 End: 01-09-2025 Lab Drop off Edwin Garcia [facility] Start: 01-09-2025 End: 01-09-2025 ambulatory MD Edwin Garcia Facility:[facility] [place] Start: 12-31-2024 End: 12-31-2024 Lab Drop off Edwin Garcia [facility] Start: 12-31-2024 End: 12-31-2024 ambulatory MD [facility] Start: 12-24-2024 End: 12-24-2024 ambulatory Edwin Garcia Facility:[facility] Start: 12-17-2024 End: 12-17-2024 Lab Drop off Edwin Garcia [facility] Start: 12-17-2024 End: 12-17-2024 ambulatory Edwin Garcia Facility:[facility] [place] Start: 12-17-2024 End: 01-22-2025 ambulatory Edwin Cole Adam Facility::[id number] Start: 11-28-2024 End: 11-28-2024 Bamboo flowsheet Jose L Chow GLASS TECHNICIAN/INSTALLER Work Phone: [facility] Start: 11-28-2024 End: 11-28-2024 Bamboo flowsheet Jose L Chow GLASS TECHNICIAN/INSTALLER Work Phone: [facility] Start: 11-28-2024 End: 11-28-2024 Postop follow up visit related to original px Jose L Chow GLASS TECHNICIAN/INSTALLER Work Phone: [facility] Comment on above: Status post carpal t unnel release (Primary Dx) Start: 11-28-2024 End: 11-28-2024 ambulatory JOSE L CHOW Not Available Start: 11-26-2024 End: 11-26-2024 Bamboo flowsheet [facility] Start: 11-26-2024 End: 11-26-2024 Bamboo flowsdamaso Escamilla MD [facility] Start: 11-26-2024 End: 11-26-2024 Patient encounter procedure Emiliano Escamilla MD Work Phone: [facility] Comment on above: Foreign body [...] to same day surgery center Axel Hernández [facility] Start: 11-19-2024 End: 11-19-2024 ambulatory Axel Serina Hernández Facility:[facility] [place] Start: 11-13-2024 ambulatory Edwin Garcia Facility :[facility] Start: 11-12-2024 End: 11-12-2024 Lab Drop off Edwin Garcia [facility] Start: 11-12-2024 End: 11-12-2024 ambulatory Edwin Garcia Facility:[facility] [place] Start: 11-01-2024 End: 11-01-2024 ambulatory Edwin Kelsey Garcia Facility:[facility] Start: 10-30-2024 End: 10-30-2024 ambulatory Axel Serina Hernándze Facility:[facility] [place] Start: 10-30-2024 End: 10-30-2024 Patient encounter procedure Axel Hernández [facility] Start: 10-03-2024 End: 10-03-2024 Bamboo flowsheet Axel [...] flowsheet Shala Farrell MD Work Phone: [facility] Start: 09-28-2024 End: 09-28-2024 Bamboo flowsheet Shala Farrell MD Work Phone: [facility] Start: 09-28-2024 End: 09-28-2024 Patient encounter procedure Shala Farrell MD Work Phone: [facility] B Comment on above: Pain in both upper e xtremities (Primary Dx); Carpal tunnel syndrome, bilateral Start: 09-28-2024 End: 09-28-2024 ambulatory SHALA FARRELL Not Available Start: 09-10-2024 End: 09-10-2024 ambulatory Edwin Garcia Facility:[facility] [place] Start: 08-28-2024 End: 08-28-2024 ambulatory Davie Vargas Facility:[facility] Start: 08-28-2024 End: 08-28-2024 Patient encounter procedure Davie Vargas [facility] [place] Start: 08-20-2024 End: 08-20-2024 Telephone encounter Shala Farrell MD Work Phone: [facility] SV NEURO 111 Start: 08-13-2024 End: 08-13-2024 ambulatory Nathaniel Bonilla MD Facility: [facility] Start: 08-07-2024 End: 08-07-2024 ambulatory Edwin Garcia Facility:[facility] [place] Start: 07-31-2024 End: 07-31-2024 ambulatory Edwin Garcia Facility:[facility] [place] Start: 07-24-2024 End: 07-24-2024 ambulatory Edwin Garcia Facility: [facility] Start: 07-23-2024 ambulatory Edwin Garcia Facility :[facility] Start: 07-05-2024 ambulatory Axel Hernández Facility :[facility] Start: 07-03-2024 End: 07-03-2024 ambulatory Edwin Garcia Facility:[facility] [place] Start: 06-20-2024 End: 06-20-2024 ambulatory AXEL HERNÁNDEZ Not Available Start: 06-11-2024 End: 06-11-2024 ambulatory XXXX NONE Facility:[facility] [place] Start: 06-11-2024 End: 06-11-2024 Patient encounter procedure Kashif D Julissaromina [facility] Start: 05-30-2024 End: 05-30-2024 ambulatory Edwin Garcia Facility:[facility] [place] Start: 05-30-2024 End: 05-30-2024 Patient encounter procedure Dixon Dubose [facility] Start: 05-21-2024 End: 05-21-2024 Patient encounter procedure Kashif Barnett [facility] Start: 05-01-2024 End: 05-01-2024 Patient encounter procedure Kashif Barnett [facility] Start: 05-01-2024 End: 05-01-2024 Lab Drop off Edwin GarnerShanna Adam [facility] Start: 04-20-2024 End: 04-20-2024 Patient encounter procedure Kashif Barnett [facility] Start: 04-04-2024 End: 04-04-2024 ambulatory AXEL HERNÁNDEZ Not Available Start: 03-26-2024 End: 03-26-2024 Admission to same day surgery center Axel Hernández [facility] Start: 03-06-2024 End: 03-06-2024 Patient encounter procedure Axel Hernández [facility] Start: 02-15-2024 End: 02-15-2024 ambulatory AXEL HERNÁNDEZ Not Available Start: 02-15-2024 End: 02-15-2024 ambulatory AXEL HERNÁNDEZ Not Available Start: 12-06-2023 End: 12-06-2023 ambulatory Jada Rene Other [employer] Other Start: 12-06-2023 Telephone encounter Jada Rene [facility] [place] Start: 12-02-2023 End: 12-02-2023 ambulatory Jada Rene Other [employer] Other Start: 12-02-2023 Telephone encounter Jada Rene [facility] [place] Start: 12-01-2023 End: 12-01-2023 Lab Drop off Edwin Garcia [facility] Start: 11-18-2023 End: 11-18-2023 ambulatory Jada Rene Other [employer] Other Start: 11-18-2023 Office outpatient vi sit 25 minutes Jadamary Rene [facility] [place] Start: 11-02-2023 End: 11-02-2023 ambulatory Jada Rene Other [employer] Other Start: 11-02-2023 Office outpatient vi sit 25 minutes Jada Rene [facility] [place] Start: 11-02-2023 Telephone encounter Jada Rene [facility] [place] Start: 10-28-2023 End: 10-28-2023 ambulatory Jada Rene Other [employer] Other Start: 10-28-2023 Telephone encounter Jada Rene [facility] [place] Start: 09-30-2023 End: 09-30-2023 Nurse Triage Venessa Riggins RN NURSE RIVET DRIVER Comment on above: Refill Request Start: 09-30-2023 Telephone encounter Jada Rene [facility] [place] Start: 09-21-2023 End: 09-21-2023 ambulatory Jadayomi Rene Other [employer] Other Start: 09-21-2023 Office outpatient vi sit 25 minutes Jada Rene [facility] [place] Start: 08-29-2023 End: 08-29-2023 ambulatory Jadayomi Rene Other [employer] Other Start: 08-29-2023 Telephone encounter Jadayomi Rene [facility] [place] Start: 08-26-2023 End: 08-26-2023 ambulatory Jada Edgard Other [employer] Other Start: 08-26-2023 Telephone encounter Jadayomi Rene [facility] [place] Start: 08-08-2023 End: 08-08-2023 ambulatory Jadayomi Rene Other [employer] Other Start: 08-08-2023 Telephone encounter Jada Rene [facility] [place] Start: 07-27-2023 End: 07-27-2023 ambulatory Jadayomi Rene Other [employer] Other Start: 07-27-2023 Telephone encounter Jada Rene [facility] [place] Start: 06-16-2023 End: 06-16-2023 ambulatory Jadayomi Rene Other [employer] Other Start: 06-16-2023 Office outpatient ne w 45 minutes Jadayomi Rene [facility] [place] Start: 06-16-2023 Telephone encounter Jadayomi Rene [facility] [place] Procedures Date Procedure Procedure Detail Performing Clinician Start: 07-22-2025 Complete blood count with white cell differential, automated Win Santillan DO Work Phone: Start: 07-21-2025 C-reactive protein Win C Laffay DO Work Phone: Start: 06-23-2025 Electrolyte panel [...] MD Work Phone: Start: 06-18-2025 EXTRA TUBES Ehjanie vanegas MD Work Phone: Start: 06-18-2025 EXTRA TUBES PST TOP Alicia Carranza MD Work Phone: Start: 06-18-2025 Assay of osmolality blood Rocio Davis MD Work Phone: Start: 06-18-2025 Mri brain brain stem w/o contrast material Rocio Davis MD Work Phone: Start: 06-18-2025 Basic metabolic pane l calcium total Rocoi Davis MD Work Phone: Start: 06-18-2025 Lipid panel Rocio gonzalez MD Work Phone: Start: 06-17-2025 Comprehensive metabo lic panel Rocio Davis MD Work Phone: Start: 06-17-2025 BEDSIDE GLUCOSE Mirian Barker MD Work Phone: Start: 06-17-2025 Cerebral [...] total Beto Hedrick DO Work Phone: Start: 9 End: 06-04-2025 Electrolyte panel Beto Hedrick DO [...] REFLEX TO MG FOR LOW K Roberto oGod MD Work Phone: Start: 06-04-2025 Glucose blood [...] Start: 06-04-2025 CALCIUM, IONIC (POC) Da sourav Elwood DO Work Phone: Start: 06-04-2025 CREATININE W/GFR [...] TO MG FOR LOW K Adore Cueto MENTALLY RETARDED TEACHER - GLASS TECHNICIAN/INSTALLER Work Phone: Start: 06-03-2025 End: 06-04-2025 Prothrombin time Adore Cueto MENTALLY RETARDED TEACHER - GLASS TECHNICIAN/INSTALLER Work Phone: Start: 06-02-2025 Glucose blood reagen t strip Brigida Pina DO Work Phone: Start: 06-02-2025 Glucose blood reagen t strip Brigida Valeriano Orlop DO Work Phone: Start: 06-02-2025 BASIC METABOLIC PANE L W/ REFLEX TO MG FOR LOW K Leelee Easley MENTALLY RETARDED TEACHER - GRAPHIC ARTS TECHNICIAN Work Phone: Start: 06-02-2025 End: 06-02-2025 Prothrombin time Leelee Easley MENTALLY RETARDED TEACHER - GRAPHIC ARTS TECHNICIAN Work Phone: Start: 11-19-2024 [facility] CAPILLARY GLUCO SE POC Axel Serina Edgra DO Work Phone: Start: 11-19-2024 Decompression of med carlos nerve Axel Hernández Start: 03-26-2024 Decompression of med carlos nerve Axel Hernández Decompression of med carlos nerve Axel Hernández 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 Status post carpal tunnel release Jose L Chow NP Work Phone: Release of trigger finger Mi jacquie [facility] (qualifier value) Sa fariha Garcia Plan of Treatment Date Care Activity Detail Author Start: 06-05-2026 GFR test (Diabetes, CKD 3-4, OR last GFR 15-59) GFR test (Diabetes, CKD 3-4, OR last GFR 15-59) [facility] Start: 07-23-2025 [facility] Start: 07-22-2025 Referral to urologist [facility] Start: 07-20-2025 Administration of prophylactic treatment [facility] Start: 07-20-2025 Referral to general surgeon [facility] Start: 07-19-2025 Hospital admission [facility] Start: 07-19-2025 Referral to infectio us diseases physician [facility] Start: 07-19-2025 [facility] Start: 07-15-2025 Influenza vaccination Influenza Vacc ine (#1) [facility] Start: 06-14-2025 Influenza vaccination Flu vaccine (# 1) [facility] Start: 06-12-2025 End: 06-05-2026 Basic metabolic 2000 panel - Serum or Plasma Basic Metabolic Panel Lab Routine Hyponatremia Expected: 06/12/2025, Expires: 06/05/2026 [employer] Comment on above: Expected: 06/12/2025 , Expires: 06/05/2026 Start: 03-29-2025 COVID-19 Vaccine () COVID-19 Vaccine () [employer] Start: 12-26-2024 End: 12-26-2024 Patient encounter procedure 12/26/2024 1:45 PM EST Office Visit [facility] [address] [place] [address] Jose L Chow, GLASS TECHNICIAN/INSTALLER [address] [place] [address] [facility] Start: 11-28-2024 End: 11-28-2024 Patient encounter procedure [facility] Comment on above: Arrived Start: 11-26-2024 End: 11-26-2024 Patient encounter procedure 11/26/2024 10:30 AM EST Office Visit [facility] [address] [place] [address] Emiliano Escamilla MD [address] [facility] [address] [place], [place] [id number] Arrived [facility] Comment on above: Arrived Start: 11-14-2024 Annual Wellness Visi t (Medicare Advantage) Annual Wellness Visit (Medicare Advantage) [facility] Start: 10-03-2024 End: 10-03-2025 ECG 12 lead ECG 12 lead ECG Routine Pre-op testing Expected: 10/03/2024 (Approximate), Expires: 10/03/2025 [facility] Work Phone: Comment on above: Expected: 10/03/2024 (Approximate), Expires: 10/03/2025 Start: 10-03-2024 End: 10-03-2024 Patient encounter procedure 10/03/2024 10:45 AM EST Office Visit [facility] [address] [place] [address] Axel Hernández, DO [address] [place], [place] [id number] Right hand pain (Primary Dx); Arm weakness [facility] Comment on above: Right hand pain (Holly ayaan Dx); Arm weakness Start: 07-15-2024 Influenza vaccination Influenza Vacc ine (#1) [facility] Start: 07-15-2023 Influenza vaccination Influenza Vacc ine (#1) [facility] Start: 11-14-2022 Advance Directive Discussion Advance Directive Discussion [facility] Start: 11-14-2022 Depression Assessment Depression Ass essment [facility] Start: 2017 Respiratory Syncytia l Virus (RSV) or age 60 yrs+ (1 - 1-dose 75+ series) Respiratory Syncytial Virus (RSV) or age 60 yrs+ (1 - 1-dose 75+ series) [facility] Start: 03-31-2016 Pneumococcal Vaccine : 65+ (2 - PPSV23 or PCV20) Pneumococcal Vaccine: 65+ (2 - PPSV23 or PCV20) [facility] Start: 03-31-2016 Pneumococcal Vaccine : 65+ Years (2 of 2 - PPSV23 or PCV20) Pneumococcal Vaccine: 65+ Years (2 of 2 - PPSV23 or PCV20) [facility] Start: 03-24-2016 Hepatitis B surface antibody level LDL Cholesterol [facility] Start: 09-24-2015 Hemoglobin A1c/Hemoglobin.total in Blood HbA1C [facility] Start: 08-01-2015 3 comp foot exam completed Diabetic Foot Exam [facility] Start: 07-25-2015 Hepatitis B screening Urine Albumin:Creatinine Ratio [facility] Start: 02-01-2015 Urine microalbumin profile DTaP,Tdap,Td Vaccine (1 - Tdap) [facility] Start: 10-24-2013 Shingles vaccine (2 of 3) Keyes gles vaccine (2 of 3) [facility] Start: 10-24-2013 Shingrix Vaccine (2 of 3) Keyes grix Vaccine (2 of 3) [facility] Start: 09-14-2012 Hepatitis C antibody , confirmatory test Dilated Retinal Exam [facility] Start: 2002 RSV Vaccine (1 - 1-d ose 60+ series) RSV Vaccine (1 - 1-dose 60+ series) [facility] Start: 1961 DTaP/Tdap/Td vaccine (1 - Tdap) DTaP/Tdap/Td vaccine (1 - Tdap) [facility] Start: 1960 Urine screening for protein Diabetic Alb to Cr ratio (uACR) test [facility] Start: 06-09-1954 Depression Screen Depression Screen [employer] Start: 1952 Lipid panel [facility]ids [employer] Start: 1942 Covid-19 Vaccine (#1) Covid-19 Vacci ne (#1) [facility] End: 06-19-2025 Baseline Routine EEG Baseline Routine EEG Neurology Routine Once for 1 Occurrences starting 06/19/2025 until 06/19/2025 [employer] Comment on above: Once for 1 Occurrenc es starting 06/19/2025 until 06/19/2025 End: 06-13-2025 Basic metabolic 2000 panel - Serum or Plasma Basic Metabolic Panel Lab Routine Tomorrow AM for 10 Occurrences starting 06/04/2025 until 06/13/2025, 1 completed [employer] Comment on above: Tomorrow AM for 10 O ccurrences starting 06/04/2025 until 06/13/2025, 1 completed Basic metabolic 2000 panel - Serum or Plasma Basic Metabolic Panel Lab Routine Lab max of 3 days, Daily, for lab use only until discontinued starting 06/18/2025, 6 completed [employer] Comment on above: Lab max of 3 days, D aily, for lab use only until discontinued starting 06/18/2025, 6 completed End: 06-25-2025 Blood count hemoglobin Hemoglobin Lab Routine Every Other Day for 3 Days starting 06/23/2025 until 06/25/2025 [employer] Comment on above: Every Other Day for 3 Days starting 06/23/2025 until 06/25/2025 CBC W Auto Different ial panel - Blood CBC auto differential Lab Routine Lab max of 3 days, Daily, for lab use only until discontinued starting 06/17/2025, 7 completed [employer] Comment on above: Lab max of 3 days, D aily, for lab use only until discontinued starting 06/17/2025, 7 completed Continuous pulse oximetry Pulse oximetry, continuous Respiratory Care Routine Every 4hr until discontinued starting 06/02/2025 [employer] Comment on above: Every 4hr until disc ontinued starting 06/02/2025 End: 06-08-2025 Electrolyte Panel Electrolyte Panel Lab Routine Every 8 Hours (Lab) for 3 Days starting 06/05/2025 until 06/08/2025, 1 completed [employer] Work Phone: Comment on above: Every 8 Hours (Lab) for 3 Days starting 06/05/2025 until 06/08/2025, 1 completed End: 06-25-2025 Electrolyte panel Electrolyte panel Lab Routine Lab max of 3 days, Every 8hr, lab use only for 3 Days starting 06/22/2025 until 06/25/2025, 2 completed [employer] Work Phone: Comment on above: Lab max of 3 days, E very 8hr, lab use only for 3 Days starting 06/22/2025 until 06/25/2025, 2 completed Glucose [Mass/volume ] in Serum or Plasma [employer] Comment on above: As Needed until disc ontinued starting 06/02/2025 4X Daily (AC & HS) u ntil discontinued starting 06/02/2025 End: 06-23-2025 Holter monitor study EEG Video Monitoring Daily Neurology Routine Lab max of 3 days, Daily, for lab use only for 5 Occurrences starting 06/19/2025 until 06/23/2025, 1 completed [employer] Comment on above: Lab max of 3 days, D aily, for lab use only for 5 Occurrences starting 06/19/2025 until 06/23/2025, 1 completed Holter monitor study EEG Video M onitoring Daily Neurology Routine 06/20/2025 6:06 PM EDT [facility] [facility] Information [facility] Magnesium [Mass/volu me] in Serum or Plasma Magnesium Lab Routine Lab max of 3 days, Daily, for lab use only until discontinued starting 06/23/2025, 1 completed [facility] Comment on above: Lab max of 3 days, D aily, for lab use only until discontinued starting 06/23/2025, 1 completed End: 06-23-2025 Magnesium [Mass/volume] in Serum or Plasma Magnesium Lab Routine Once for 1 Occurrences starting 06/23/2025 until 06/23/2025 [employer] Work Phone: Comment on above: Once for 1 Occurrenc es starting 06/23/2025 until 06/23/2025 Nasal Cannula Oxygen Nasal Cannu la Oxygen Respiratory Care Routine Daily until discontinued starting 06/05/2025 [employer] Comment on above: Daily until disconti nued starting 06/05/2025 Oxygen Therapy - Carly ntain SpO2: 90%; *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 for O2: Yes; Document: \[employer].Ortho Neuro Management\epic \EPIC_Reference\Orders\Re spiratory Care Guidelines\CPG Oxygen 2022.pdf Oxygen Therapy - Maintain SpO2: 90%; *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 for O2: Yes; Document: \[employer].Ortho Neuro Management\e pic\EPIC_Reference\Ord ers\Respiratory Care Guidelines\CPG Oxygen 2022.pdf Respiratory Care Routine As Needed until discontinued starting 06/17/2025 [employer] Work Phone: Comment on above: As Needed until disc ontinued starting 06/17/2025 Oxygen therapy [[facility] Data Set] Initiate Oxygen Therapy Protocol Respiratory Care Routine As Needed until discontinued starting 06/02/2025 [employer] Work Phone: Comment on above: As Needed until disc ontinued starting 06/02/2025 Patient Education Low-fiber diet Know your Meds [facility] Work Phone: Patient referral [facility] Work Phone: End: 06-24-2025 Platelets [#/volume] in Blood Platelet count Lab Routine Every Third Day for 3 Days starting 06/24/2025 until 06/24/2025 [employer] [facility] Comment on above: Every Third Day for 3 Days starting 06/24/2025 until 06/24/2025 Protime & INR Protime & INR La b Routine Daily until discontinued starting 06/19/2025, 4 completed [facility] Comment on above: Daily until disconti nued starting 06/19/2025, 4 completed End: 06-12-2025 Protime-INR Protime-INR Lab Routine Daily for 8 Days starting 06/05/2025 until 06/12/2025, 1 completed [employer] Comment on above: Daily for 8 Days sta rting 06/05/2025 until 06/12/2025, 1 completed End: 06-02-2025 Respiratory care evaluation only Respiratory care evaluation only Respiratory Care Routine One Time for 1 Occurrences starting 06/02/2025 until 06/02/2025 [facility] Comment on above: One Time for 1 Occur renmamie starting 06/02/2025 until 06/02/2025 [facility] Immunizations Immunization Date Immunization Notes Care Provider Sandrita escobar 09-29-2024 influenza, high dose seasonal, preservative-free Erika Crisostomo MD Work Phone: [facility] 09-29-2024 influenza virus vaccine, unspecified formulation Axel Hernández Work Phone: [facility] 09-21-2023 Prevnar 20 Jada Rene Other [facility] 08-19-2023 Covid-19, Mrna, Lnp- s, Pf,brigette-sucrose,30 Mcg/0.3ml Seasonal Erika Crisostomo MD Work Phone: [facility] 08-19-2023 Flu Shot - Documentation Purposes Only Jadamary Rene Other [employer] Other 08-19-2023 influenza virus vaccine, unspecified formulation Edwin Adam [facility] 08-14-2022 influenza, seasonal, injectable Jadayomi Rene Other [facility] 03-31-2021 Influenza, High-dose , Quadrivalent Erika Crisostomo MD Work Phone: [facility] 03-31-2015 pneumococcal conjuga te vaccine, 13 valent Jada Edgard Other [facility] 08-02-2014 influenza, high dose seasonal, preservative-free Venessa Riggins RN [facility] 08-02-2014 influenza virus vaccine, unspecified formulation Venessa Riggins RN [facility] 08-29-2013 zoster vaccine, live Venessa terrell RN [facility] 08-09-2013 influenza virus vaccine, unspecified formulation Venessa Riggins RN [facility] 07-31-2012 influenza virus vaccine, unspecified formulation Venessa Riggins RN [facility] Work Phone: 03-07-2012 TD(adult) unspecifie d formulation Erika Crisostomo MD Work Phone: [facility] 03-07-2012 tetanus and diphther ia toxoids, adsorbed, preservative free, for adult use (2 Lf of tetanus toxoid and 2 Lf of diphtheria toxoid) Venessa Riggins RN [facility] Work Phone: 08-07-2011 influenza virus vaccine, unspecified formulation Venessa Riggins RN [facility] Work Phone: NEGATED: Highlighted row has not occurred!08-28-2024 influenza virus vaccine, unspecified formulation Davie Vargas [facility] [place] Payers Date Payer Category Payer Medicare [id number] 2025 Self-pay 2025 Private Health Insurance [id number] 2025 Medicaid AETNA MEDICARE A DVANTAGE [id number] 2025 Medicare HMO [employer] MEDICARE [id number] 2025 Private Health Insurance [facility] [id number] 2023 Medicare (Managed Care) [employer] [id number] 2023 Unknown DEVOTED HEALTH D EVOTED [facility] [id number] 2023-Present [address] [place] [id number] [id number]. [id number] 2023 Unknown [id number] 2.16.840.1.591519.19 2023 Medicare 1.2.840.366566. 1.13.159.2. 7.3.394924.315 1942 Unknown [id number] 2.16.840.1.310068.3.579.2. 196 1942 Unknown [id number] 2.16.840.1.356019.3.579.2. 727 1942 Unknown [id number] 2.16.840.1.339325.3.579.2. 727 1942 Unknown [id number] 2.16.840.1.966332.3.579.2. 727 1942 Unknown [id number] 2.16.840.1.660663.3.579.2. 1942 Unknown [id number] 2.16.840.1.027805.3.579.2. 1258 1942 Unknown [id number] 2.16.840.1.624954.3.579.2. 1258 1942 Unknown [id number] 2.16.840.1.889309.3.579.2. 1258 1942 Unknown [id number] 2.16.840.1.492022.3.579.2. 1258 1942 Unknown [id number] 2.16.840.1.391095.3.579.2. 1258 1942 Unknown [id number] 2.16.840.1.790652.3.579.2. 1258 1942 Unknown [id number] 2.16840.1.572733.3.579.2. 1258 1942 Unknown [id number] 2.16.840.1.305615.3.579.2. 1258 1942 Unknown [id number] 2.16840.1.283635.3.579.2. 1258 1942 Unknown [id number] 2.16840.1.206604.3.579.2. 1942 Unknown [id number] 2.840.1.372568.3.579.2. 1942 Unknown [id number] 2.16.840.1.916025.3.579.2. 1942 Unknown [id number] 2.16.840.1.187391.3.579.2. 1942 Unknown [id number] 2.16.840.1.515139.3.579.2. 1942 Unknown [id number] 2.16.840.1.728751.3.579.2. 1942 Unknown [id number] 2.16.840.1.627049.3.579.2. 727 1942 Unknown [id number] 2.16.840.1.313501.3.579.2. 72 1942 Unknown [id number] 2.16.840.1.955542.3.579.2. 1942 Unknown [id number] 2.16.840.1.645493.3.579.2. 1942 Unknown [id number] 2.16.840.1.894078.3.579.2. 1942 Unknown [id number] 2.16.840.1.085632.3.579.2. 1942 Unknown [id number] 2.16.840.1.480504.3.579.2. 1942 Unknown [id number] 2.16.840.1.525709.3.579.2 1942 Unknown [id number] 2.16.840.1.999474.3.579.2. 1942 Unknown [id number] 2.16.840.1.396580.3.579.2. 1942 Unknown [id number] 2.16.840.1.250092.3.579.2. 1942 Unknown [id number] 2.16.840.1.607409.3.579.2. 175 1942 Unknown [id number] 2.16.840.1.883869.3.579.2. 1942 Unknown [id number] 2.16.840.1.910846.3.579.2. 1942 Unknown [id number] 2.16.840.1.118434.3.579.2. 1942 Unknown [id number] 2.16.840.1.552676.3.579.2. 727 1942 Unknown [id number] 2.16.840.1.705554.3.579.2. 1942 Unknown [id number] 2.16.840.1.740146.3.579.2. 1942 Unknown [id number] 2.16.840.1.421323.3.579.2. 1942 Unknown [id number] 2.16.840.1.767160.3.579.2. 1942 Unknown [id number] 2.16.840.1.036256.3.579.2. 1942 Unknown [id number] 2.16.840.1.220643.3.579.2. 1942 Unknown [id number] 2.16.840.1.631620.3.579.2. 1942 Unknown [id number] 2.16.840.1.314361.3.579.2. 1942 Unknown [id number] 2.16.840.1.054077.3.579.2. 1942 Unknown [id number] 2.16.840.1.717189.3.579.2. 1942 Unknown [id number] 2.16.840.1.032451.3.579.2. 1942 Unknown [id number] 2.16.840.1.457314.3.579.2. 1942 Unknown [id number] 2.16.840.1.310293.3.579.2. 1942 Unknown [id number] 2.16.840.1.897708.3.579.2. 1942 Unknown [id number] 2.16.840.1.930719.3.579.2. 1942 Unknown [id number] 2.16.840.1.243694.3.579.2. 727 1942 Unknown [id number] 2.16.840.1.901325.3.579.2. 72 1942 Unknown [id number] 2.16.840.1.328374.3.579.2. 727 1942 Unknown [id number] 2.16.840.1.069726.3.579.2. 727 1942 Unknown [id number] 2.16.840.1.600006.3.579.2. 727 1942 Unknown [id number] 2.16.840.1.824058.3.579.2. 72 1942 Unknown [id number] 2.16.840.1.079246.3.579.2. 72 1942 Unknown [id number] 2.16.840.1.096526.3.579.2. 72 1942 Unknown [id number] 2.16.840.1.477556.3.579.2. 72 1942 Unknown [id number] 2.16.840.1.120800.3.579.2. 727 Medicare [id number] 2.840.1.747061.19 Medicare [id number] 2.16840.1.390311.19 Unknown [id number] 2.16840.1.746551.3.579.2. 531 Social History Date Type Detail Facility Start: 06-20-2024 End: 11-28-2024 Sex Assigned At [facility] Start: 12-01-2023 End: 07-22-2025 Tobacco smoking status NDIS Never smoked tobacco [facility] Comment on above: denies use. Start: 06-28-2022 Alcohol intake Current drinke r of alcohol (finding) [facility] Start: 06-28-2022 End: 11-28-2024 Alcohol intake [facility] Start: 1940 Sex Assigned At Not on file [facility] Tobacco smoking status Never [facility] [place] Comment on above: denies use. Start: 02-15-2024 End: 06-17-2025 Tobacco use and exposure Smokeless tobacco non-user [facility] Sexual Orientation [facility] Start: 03-27-2015 End: 08-22-2023 Sex Male (finding) [facility] Start: 06-02-2025 Alcoholic beverage intake Lifetime non-drinker (finding) [employer] Has the electric, [employer] s, oil, or water company threatened to shut off services in your home in past 12Mo No [employer] [facility] [employer] (I/We) worried mary mckeon (my/our) food would run out before (I/we) got money to buy more. Never true [employer] Start: 06-17-2025 Alcoholic beverage intake Ex-drinker (finding) [facility] [employer] [facility] How often to you hav e a drink containing alcohol? Never [employer] [facility] [employer] [facility] Start: 1940 Sex Assigned At [facility] Start: 07-22-2025 SDOH Follow up SDOH Follow up [facility] Work Phone: Medical Equipment Procedure Code [...] Evaluation of progress towards goal: Home with [facility] Functional Status Date Assessment Result Facility 06-17-2025 Total score [AUDIT-C] 0 06/17/20 25 4:54 PM EDT Monico Cuellar, ERIN [facility] [employer] [facility] 10-30-2024 Functional Status No [facility] 08-28-2024 Functional Status N/A [facility] [place] 06-11-2024 Functional Status N/A [facility] 05-30-2024 Functional Status No [facility] 04-20-2024 Functional Status N/A [facility] 03-06-2024 Functional Status No [facility] Mental Status Date Assessment Result Facility [facility] Clinical Notes 03-10-2010 to 08-26-2025 Note Date & Type Note Facility 08-26-2025 Note Patient Education Nephrology Hyponatremia Hyponatremia is [...] Follow these instructions at home: ??? Take owll-cww-eltzwph and prescription medicines only as told by [...] provider. Document Revised: 05/11/2022 Document Reviewed: 05/11/2022 [employer] Patient Education ? 2023 [place] [facility] 07-25-2025 Note Patient Education Infectious Disease Sepsis, [...] these instructions at home: Medicines ??? Take lhsq-ehs-qmkvkda and prescription medicines only as told by [...] away. Get medica (more content not included)... 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 Work Phone: 1(437) 724-598408-28-2025 NotePatient Education Neurology Stroke Prevention Some medical [...] ? Biking. ? Swimming. Medicines ??? Take hnso-hkf-bxcpjzr and prescription medicines only as told by your doctor. ??? Avoid taking control pills. Talk to your doctor about the risks of taking control pills if: ? You are over 35 years old. ? You smoke. ? You get very bad headaches. ? You have had a blood clot. Where to find more information ??? [place] St[employer] Association: www.strokeassociation.org Get help right away [...] what people say. ? (more content not included)...[facility]08-21-2025 Note Patient Education Nephrology Hyponatremia [...] Follow these instructions at home: ??? Take syjk-umy-qusxrfb and prescription medicines only as told by [...] provider. Document Revised: 05/11/2022 Document Reviewed: 05/11/2022 [employer] Patient Education ? 2023 [place] 06-23-2025 Nurse Note* Debra Huggins RN - 06/23/2025 3:01 PM EDT Patient discharged to the [facility] at this time. Report called and questions addressed. PIV and tele discontinued. All personal belongings packed and left with patient. Report given to transport as well. No other concerns at this time. Left on stretcher [facility]08-10-2025 Nurse Note* Derba Huggins RN - 06/23/2025 3:01 PM EDT Patient discharged to the [facility] at this time. Report called [...] Notified ofQT from EKG done 06/17 at [place]. [facility] Plan of care note * Plan of Care - Debra Huggins RN - 06/23/2025 11:02 AM EDT Problem: Pain Goal: Patient goal is pain score less than 4, able to rest, and participant in treatment plan as appropriate Description: INTERVENTIONS: 1. Encourage patient or legal phlebotomy services representative to report early pain and [...] per policy 9. Teach patient or legal phlebotomy services representative interventions for comforting Outcome: Adequate [...] at the bedside 7. Instruct patient/ patient phlebotomy services representative about use of safety devices 8. Include patient/ patient phlebotomy services representative in decisions related to safety [...] hygiene technique. 7. Identify and instruct patient/patient phlebotomy services representative in use of appropriate isolation precautionsfor identified infection/symptoms. 8. Provide and discuss with patient/patient phlebotomy services representative on educational MDRO sheet. 9. Encourage and monitor nutritional status daily and consult bait maker if indicated. 10. Implement neutropenic guidelines as needed. Outcome: Adequate for Discharge Problem: Knowledge Deficit Goal: Patient/patient phlebotomy services representative demonstrates understanding of disease process, [...] supplement as ordered 13. Collaborate with clinical bait maker 14. Include patient/ patient's phlebotomy services representative in decisions related to nutrition [...] develop effective communication strategies 4. Include patient/patient phlebotomy services representative in decisions related to communication [...] Collaborate with ancillary departments 14. Include patient/patient phlebotomy services representative in decisions related to anxiety [...] to assist with coping 8. Involve patient's phlebotomy services representative in care Outcome: Adequate for [...] Score of =/> 25 or indicated by [facility] Assessment Goal: Patient should be free from fall Description: Interventions: 1. [place] to environment 2. Hourly rounds addressing the [...] non-skid footwear 11. Teach patient and patient phlebotomy services representative to maintain environment for safety [...] (cane, walker) within reach 19. Request patient phlebotomy services representative bring adaptive equipment/mobility aids from home or obtain and provide as needed 20. Consult pharmacy regarding effects of med's affecting mobility, cognition, and alternatives 21. Obtain physician order for PT if risk factors associated with mobility are present 22. Obtain physician order for OT as appropriate 23. Utilize diversional activities 24. Educate patient and patient phlebotomy services representative how to maintain a safe environment during visitationtimes (notify nurse prior to leaving bedside) 25. Consider appropriateness of medical or non-medical record administrator 26. Set up voiding schedule as appropriate (every 2 hours) Outcome: Adequate for Discharge [facility] Reviews & Information [id number] Miscellaneous Notes* Plan of Care - Debra Huggins RN - 06/23/2025 11:02 AM EDT Problem: Pain Goal: Patient goal is pain score less than 4, able to rest, and participant in treatment plan as appropriate Description: INTERVENTIONS: 1. Encourage patient or legal phlebotomy services representative to report early pain and [...] per policy 9. Teach patient or legal phlebotomy services representative interventions for comforting Outcome: Adequate [...] at the bedside 7. Instruct patient/ patient phlebotomy services representative about use of safety devices 8. Include patient/ patient phlebotomy services representative in decisions related to safety [...] hygiene technique. 7. Identify and instruct patient/patient phlebotomy services representative in use of appropriate isolation precautionsfor identified infection/symptoms. 8. Provide and discuss with patient/patient phlebotomy services representative on educational MDRO sheet. 9. Encourage and monitor nutritional status daily and consult bait maker if indicated. 10. Implement neutropenic guidelines as needed. Outcome: Adequate for Discharge Problem: Knowledge Deficit Goal: Patient/patient phlebotomy services representative demonstrates understanding of disease process, [...] supplement as ordered 13. Collaborate with clinical bait maker 14. Include patient/ patient's phlebotomy services representative in decisions related to nutrition [...] develop effective communication strategies 4. Include patient/patient phlebotomy services representative in decisions related to communication [...] Collaborate with ancillary departments 14. Include patient/patient phlebotomy services representative in decisions related to anxiety [...] to assist with coping 8. Involve patient's phlebotomy services representative in care Outcome: Adequate for [...] Moderate - High Risk Fall Score Description: [place] Fall Score of =/> 25 or indicated by [facility] Assessment Goal: Patient should be free from fall Description: Interventions: 1. [place] to environment 2. Hourly rounds addressing the [...] non-skid footwear 11. Teach patient and patient phlebotomy services representative to maintain environment for safety [...] (cane, walker) within reach 19. Request patient phlebotomy services representative bring adaptive equipment/mobility aids from home or obtain and provide as needed 20. Consult pharmacy regarding effects of med's affecting mobility, cognition, and alternatives 21. Obtain physician order for PT if risk factors associated with mobility are present 22. Obtain physician order for OT as appropriate 23. Utilize diversional activities 24. Educate patient and patient phlebotomy services representative how to maintain a safe environment during visitationtimes (notify nurse prior to leaving bedside) 25. Consider appropriateness of medical or non-medical record administrator 26. Set up voiding schedule as appropriate (every 2 hours) Outcome: Adequate for Discharge * Discharge Planning Note - Hellen Brady - 06/23/2025 10:54 AM EDT DISCHARGE PLANNING NOTE BLS via PTN [facility] Confirmed in [facility]. * Discharge Planning Note - CHARLES Lee - 06/23/2025 10:39 AM EDT DISCHARGE PLANNING NOTE Discharge written, CRF complete. Social work task [facility] to arrange BLS transport- wait confirmed time. [facility] [place] notified of discharge and CRF sent. HENS [...] Description: INTERVENTIONS: 1. Encourage patient or legal phlebotomy services representative to report early pain and [...] per policy 9. Teach patient or legal phlebotomy services representative interventions for comforting 06/23/2025 0628 [...] at the bedside 7. Instruct patient/ patient phlebotomy services representative about use of safety devices 8. Include patient/ patient phlebotomy services representative in decisions related to safety [...] hygiene technique. 7. Identify and instruct patient/patient phlebotomy services representative in use of appropriate isolation precautionsfor identified infection/symptoms. 8. Provide and discuss with patient/patient phlebotomy services representative on educational MDRO sheet. 9. Encourage and monitor nutritional status daily and consult bait maker if indicated. 10. Implement neutropenic guidelines as needed. Outcome: Progressing Note: Evaluation of progress towards goal: Standard precaution maintained Problem: Knowledge Deficit Goal: Patient/patient phlebotomy services representative demonstrates understanding of disease process, [...] supplement as ordered 13. Collaborate with clinical bait maker 14. Include patient/ patient's phlebotomy services representative in decisions related to nutrition [...] develop effective communication strategies 4. Include patient/patient phlebotomy services representative in decisions related to communication [...] Collaborate with ancillary departments 14. Include patient/patient phlebotomy services representative in decisions related to anxiety [...] to assist with coping 8. Involve patient's phlebotomy services representative in care Outcome: Progressing Note: [...] Score of =/> 25 or indicated by [facility] Assessment Goal: Patient should be free from fall Description: Interventions: 1. [place] to environment 2. Hourly rounds addressing the [...] non-skid footwear 11. Teach patient and patient phlebotomy services representative to maintain environment for safety [...] (cane, walker) within reach 19. Request patient phlebotomy services representative bring adaptive equipment/mobility aids from home or obtain and provide as needed 20. Consult pharmacy regarding effects of med's affecting mobility, cognition, and alternatives 21. Obtain physician order for PT if risk factors associated with mobility are present 22. Obtain physician order for OT as appropriate 23. Utilize diversional activities 24. Educate patient and patient phlebotomy services representative how to maintain a safe environment during visitationtimes (notify nurse prior to leaving bedside) 25. Consider appropriateness of medical or non-medical record administrator 26. Set up voiding schedule as appropriate (every 2 hours) Outcome: Progressing Note: Evaluation of progress towards goal: Fall bundles maintained * Plan of Care - Debra Huggins RN - 06/22/2025 2:18 PM EDT Problem: Pain Goal: Patient goal is pain score less than 4, able to rest, and participant in treatment plan as appropriate Description: INTERVENTIONS: 1. Encourage patient or legal phlebotomy services representative to report early pain and [...] per policy 9. Teach patient or legal phlebotomy services representative interventions for comforting Outcome: Progressing [...] at the bedside 7. Instruct patient/ patient phlebotomy services representative about use of safety devices 8. Include patient/ patient phlebotomy services representative in decisions related to safety [...] hygiene technique. 7. Identify and instruct patient/patient phlebotomy services representative in use of appropriate isolation precautionsfor identified infection/symptoms. 8. Provide and discuss with patient/patient phlebotomy services representative on educational MDRO sheet. 9. Encourage and monitor nutritional status daily and consult bait maker if indicated. 10. Implement neutropenic guidelines as needed. Outcome: Progressing Note: Evaluation of progress towards goal: continue to monitor labs, vitals, tele, IV site Problem: Knowledge Deficit Goal: Patient/patient phlebotomy services representative demonstrates understanding of disease process, [...] supplement as ordered 13. Collaborate with clinical bait maker 14. Include patient/ patient's phlebotomy services representative in decisions related to nutrition [...] develop effective communication strategies 4. Include patient/patient phlebotomy services representative in decisions related to communication Outcome: Progressing Note: Evaluation of progress towards goal: [place], speak loudly and understands Problem: Potential for [...] Collaborate with ancillary departments 14. Include patient/patient phlebotomy services representative in decisions related to anxiety [...] to assist with coping 8. Involve patient's phlebotomy services representative in care Outcome: Progressing Note: [...] Progressing Note: Evaluation of progress towards goal: [facility] [place] Problem: Moderate - High Risk Fall Score Description: [place] Fall Score of =/> 25 or indicated by [facility] Assessment Goal: Patient should be free from fall Description: Interventions: 1. [place] to environment 2. Hourly rounds addressing the [...] non-skid footwear 11. Teach patient and patient phlebotomy services representative to maintain environment for safety [...] (cane, walker) within reach 19. Request patient phlebotomy services representative bring adaptive equipment/mobility aids from home or obtain and provide as needed 20. Consult pharmacy regarding effects of med's affecting mobility, cognition, and alternatives 21. Obtain physician order for PT if risk factors associated with mobility are present 22. Obtain physician order for OT as appropriate 23. Utilize diversional activities 24. Educate patient and patient phlebotomy services representative how to maintain a safe environment during visitationtimes (notify nurse prior to leaving bedside) 25. Consider appropriateness of medical or non-medical record administrator 26. Set up voiding schedule as appropriate (every 2 hours) Outcome: Progressing Note: Evaluation of progress towards goal: no falls; syncopal episode per notes 06/21; up with assistonly; high fall risk - maintain precautions * Discharge Planning Note - Norma Ritter - 06/22/2025 12:42 PM EDT DISCHARGE PLANNING NOTE Prior Auth approved for admission to : [facility] (P# [phone] ; F# ) Approval # [id number] Valid for Dates: 06/22/2025 - 06/28/2025 * Discharge Planning Note - Norma Ritter - 06/22/2025 10:39 AM EDT DISCHARGE PLANNING NOTE Prior auth submitted to: [employer] Via: [employer] On behalf of : [facility] (P# ; F# ) Ref# [id number] * Discharge Planning Note - CHARLES Lee - 06/22/2025 10:15 AM EDT DISCHARGE PLANNING NOTE Case discussed in daily transition rounds and chart reviewed by CN. [facility]charge Plan remains: [facility] accepting referral. Social work contacted to inform [...] Description: INTERVENTIONS: 1. Encourage patient or legal phlebotomy services representative to report early pain and [...] per policy 9. Teach patient or legal phlebotomy services representative interventions for comforting Outcome: Progressing [...] at the bedside 7. Instruct patient/ patient phlebotomy services representative about use of safety devices 8. Include patient/ patient phlebotomy services representative in decisions related to safety [...] hygiene technique. 7. Identify and instruct patient/patient phlebotomy services representative in use of appropriate isolation precautionsfor identified infection/symptoms. 8. Provide and discuss with patient/patient phlebotomy services representative on educational MDRO sheet. 9. Encourage and monitor nutritional status daily and consult bait maker if indicated. 10. Implement neutropenic guidelines as needed. Outcome: Progressing Note: Evaluation of progress towards goal: Pt has no s/s of infection, standard precaution maintained Problem: Knowledge Deficit Goal: Patient/patient phlebotomy services representative demonstrates understanding of disease process, [...] supplement as ordered 13. Collaborate with clinical bait maker 14. Include patient/ patient's phlebotomy services representative in decisions related to nutrition [...] develop effective communication strategies 4. Include patient/patient phlebotomy services representative in decisions related to communication [...] Collaborate with ancillary departments 14. Include patient/patient phlebotomy services representative in decisions related to anxiety [...] to assist with coping 8. Involve patient's phlebotomy services representative in care Outcome: Progressing Note: [...] Moderate - High Risk Fall Score Description: [place] Fall Score of =/> 25 or indicated by [facility] Assessment Goal: Patient should be free from fall Description: Interventions: 1. [place] to environment 2. Hourly rounds addressing the [...] non-skid footwear 11. Teach patient and patient phlebotomy services representative to maintain environment for safety [...] (cane, walker) within reach 19. Request patient phlebotomy services representative bring adaptive equipment/mobility aids from home or obtain and provide as needed 20. Consult pharmacy regarding effects of med's affecting mobility, cognition, and alternatives 21. Obtain physician order for PT if risk factors associated with mobility are present 22. Obtain physician order for OT as appropriate 23. Utilize diversional activities 24. Educate patient and patient phlebotomy services representative how to maintain a safe environment during visitationtimes (notify nurse prior to leaving bedside) 25. Consider appropriateness of medical or non-medical record administrator 26. Set up voiding schedule as appropriate (every 2 hours) Outcome: Progressing Note: Evaluation of progress towards goal: Fall bundles maintained * Plan of Care - Lauren Gaona RN - 06/21/2025 6:18 PM EDT Problem: Knowledge Deficit Goal: Patient/patient phlebotomy services representative demonstrates understanding of disease process, [...] for adl's Problem: Knowledge Deficit Goal: Patient/patient phlebotomy services representative demonstrates understanding of disease process, [...] Description: INTERVENTIONS: 1. Encourage patient or legal phlebotomy services representative to report early pain and [...] per policy 9. Teach patient or legal phlebotomy services representative interventions for comforting Outcome: Progressing [...] at the bedside 7. Instruct patient/ patient phlebotomy services representative about use of safety devices 8. Include patient/ patient phlebotomy services representative in decisions related to safety [...] hygiene technique. 7. Identify and instruct patient/patient phlebotomy services representative in use of appropriate isolation precautionsfor identified infection/symptoms. 8. Provide and discuss with patient/patient phlebotomy services representative on educational MDRO sheet. 9. Encourage and monitor nutritional status daily and consult bait maker if indicated. 10. Implement neutropenic guidelines as [...] supplement as ordered 13. Collaborate with clinical bait maker 14. Include patient/ patient's phlebotomy services representative in decisions related to nutrition [...] develop effective communication strategies 4. Include patient/patient phlebotomy services representative in decisions related to communication [...] Collaborate with ancillary departments 14. Include patient/patient phlebotomy services representative in decisions related to anxiety [...] to assist with coping 8. Involve patient's phlebotomy services representative in care Outcome: Progressing Note: [...] Score of =/> 25 or indicated by [facility] Assessment Goal: Patient should be free from fall Description: Interventions: 1. [place] to environment 2. Hourly rounds addressing the [...] non-skid footwear 11. Teach patient and patient phlebotomy services representative to maintain environment for safety [...] (cane, walker) within reach 19. Request patient phlebotomy services representative bring adaptive equipment/mobility aids from home or obtain and provide as needed 20. Consult pharmacy regarding effects of med's affecting mobility, cognition, and alternatives 21. Obtain physician order for PT if risk factors associated with mobility are present 22. Obtain physician order for OT as appropriate 23. Utilize diversional activities 24. Educate patient and patient phlebotomy services representative how to maintain a safe environment during visitationtimes (notify nurse prior to leaving bedside) 25. Consider appropriateness of medical or non-medical record administrator 26. Set up voiding schedule as appropriate [...] Description: INTERVENTIONS: 1. Encourage patient or legal phlebotomy services representative to report early pain and [...] per policy 9. Teach patient or legal phlebotomy services representative interventions for comforting Outcome: Progressing [...] at the bedside 7. Instruct patient/ patient phlebotomy services representative about use of safety devices 8. Include patient/ patient phlebotomy services representative in decisions related to safety [...] hygiene technique. 7. Identify and instruct patient/patient phlebotomy services representative in use of appropriate isolation precautionsfor identified infection/symptoms. 8. Provide and discuss with patient/patient phlebotomy services representative on educational MDRO sheet. 9. Encourage and monitor nutritional status daily and consult bait maker if indicated. 10. Implement neutropenic guidelines as [...] supplement as ordered 13. Collaborate with clinical bait maker 14. Include patient/ patient's phlebotomy services representative in decisions related to nutrition [...] develop effective communication strategies 4. Include patient/patient phlebotomy services representative in decisions related to communication [...] Collaborate with ancillary departments 14. Include patient/patient phlebotomy services representative in decisions related to anxiety [...] to assist with coping 8. Involve patient's phlebotomy services representative in care Outcome: Progressing Note: [...] Score of =/> 25 or indicated by [facility] Assessment Goal: Patient should be free from fall Description: Interventions: 1. [place] to environment 2. Hourly rounds addressing the [...] non-skid footwear 11. Teach patient and patient phlebotomy services representative to maintain environment for safety [...] (cane, walker) within reach 19. Request patient phlebotomy services representative bring adaptive equipment/mobility aids from home or obtain and provide as needed 20. Consult pharmacy regarding effects of med's affecting mobility, cognition, and alternatives 21. Obtain physician order for PT if risk factors associated with mobility are present 22. Obtain physician order for OT as appropriate 23. Utilize diversional activities 24. Educate patient and patient phlebotomy services representative how to maintain a safe environment during visitationtimes (notify nurse prior to leaving bedside) 25. Consider appropriateness of medical or non-medical record administrator 26. Set up voiding schedule as appropriate (every 2 hours) Outcome: Progressing Note: Evaluation of progress towards goal: free of fall this shift Problem: Pain Goal: Patient goal is pain score less than 4, able to rest, and participant in treatment plan as appropriate Description: INTERVENTIONS: 1. Encourage patient or legal phlebotomy services representative to report early pain and [...] per policy 9. Teach patient or legal phlebotomy services representative interventions for comforting Outcome: Progressing [...] at the bedside 7. Instruct patient/ patient phlebotomy services representative about use of safety devices 8. Include patient/ patient phlebotomy services representative in decisions related to safety [...] at the bedside 7. Instruct patient/ patient phlebotomy services representative about use of safety devices 8. Include patient/ patient phlebotomy services representative in decisions related to safety [...] hygiene technique. 7. Identify and instruct patient/patient phlebotomy services representative in use of appropriate isolation precautionsfor identified infection/symptoms. 8. Provide and discuss with patient/patient phlebotomy services representative on educational MDRO sheet. 9. Encourage and monitor nutritional status daily and consult bait maker if indicated. 10. Implement neutropenic guidelines as [...] supplement as ordered 13. Collaborate with clinical bait maker 14. Include patient/ patient's phlebotomy services representative in decisions related to nutrition [...] develop effective communication strategies 4. Include patient/patient phlebotomy services representative in decisions related to communication [...] Collaborate with ancillary departments 14. Include patient/patient phlebotomy services representative in decisions related to anxiety [...] be free from fall Description: Interventions: 1. [place] to environment 2. Hourly rounds addressing the [...] non-skid footwear 11. Teach patient and patient phlebotomy services representative to maintain environment for safety [...] (cane, walker) within reach 19. Request patient phlebotomy services representative bring adaptive equipment/mobility aids from home or obtain and provide as needed 20. Consult pharmacy regarding effects of med's affecting mobility, cognition, and alternatives 21. Obtain physician order for PT if risk factors associated with mobility are present 22. Obtain physician order for OT as appropriate 23. Utilize diversional activities 24. Educate patient and patient phlebotomy services representative how to maintain a safe environment during visitationtimes (notify nurse prior to leaving bedside) 25. Consider appropriateness of medical or non-medical record administrator 26. Set up voiding schedule as appropriate [...] to assist with coping 8. Involve patient's phlebotomy services representative in care Outcome: Progressing Note: [...] Yes List Provided Yes [facility]Port List Provided [facility] Facility Financial Disclosure Provided for In-Network Referral Yes DISCHARGE PLANNING NOTE CN spoke w pts , SNF choice is [facility]. She did n ot have a 2nd [...] . Pt not appropriate for [facility]. Need SNF choices. CN also sent SNF list Via careport to pts cell phone to select choices. Await response. Rohini Mcintyre RN * PT/OT/COMPUTER LAB ASSISTANT - LU Enriquez - 06/21/2025 9:58 AM [...] None Scoring Daily Activity Raw Score: 14 [facility] G Code Modifier: CK Modified chip index: 5/20 Occupational Profile Patient seen for OT eval on 06-19-2025. Patient now seen for OT re-eval to update goals due to improved level of alertness and ability to participate in therapy. Patient admitted with left side weakness and aphasia. 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 History of A-fib on coumadin and diabetic. Continue to recommend residential facility. Patient with episode of decreased responsiveness with listing to the left while on commode for 1-2 minutes. Once alert patient was nauseated. RNLauren called to room. Patient assisted from stephanie gomes and in room. See below for past medical and past surgical history. Past Medical History: Diagnosis Date Atrial fibrillation ([facility]) BPH (benign prostatic hyperplasia) Broken nose CVA (cerebral vascular accident) ([facility]) 06/17/2025 Diabetes ([facility]) Epistaxis Hypertension Hyponatremia secondary [...] Equipment: waker, chair alarm, gait belt, telemetry. Telemetry/Rock Dust Sprayer: Yes Oxygen Used: room air Other: (S) [...] Patient will perform toilet transfers with Modified [place] Dates: Start: 06/21/25 Expected End: 07/19/25 Description: [...] problems. Principal Problem: CVA (cerebral vascular accident) ([facility]) * PT/OT/COMPUTER LAB ASSISTANT - Ayaan Campos, PT - 06/21/2025 9:56 [...] 6 Clicks: Basic Mobility Raw Score: 15 [facility] G Code Modifier: CK SwePASS score = [...] Past Medical History: Diagnosis Date Atrial fibrillation ([facility]) BPH (benign prostatic hyperplasia) Broken nose CVA (cerebral vascular accident) ([facility]) 06/17/2025 Diabetes ([facility]) Epistaxis Hypertension Hyponatremia secondary [...] gait belt, wheeled walker, IV, chair/bed alarm Telemetry/Rock Dust Sprayer: Yes Oxygen Used: room air Other: (S) [...] problems. Principal Problem: CVA (cerebral vascular accident) ([facility]) * Plan of Care - Nicole Sparks RN - 06/20/2025 11:40 PM EDT Problem: Pain Goal: Patient goal is pain score less than 4, able to rest, and participant in treatment plan as appropriate Description: INTERVENTIONS: 1. Encourage patient or legal phlebotomy services representative to report early pain and [...] per policy 9. Teach patient or legal phlebotomy services representative interventions for comforting Outcome: Progressing [...] at the bedside 7. Instruct patient/ patient phlebotomy services representative about use of safety devices 8. Include patient/ patient phlebotomy services representative in decisions related to safety [...] hygiene technique. 7. Identify and instruct patient/patient phlebotomy services representative in use of appropriate isolation precautionsfor identified infection/symptoms. 8. Provide and discuss with patient/patient phlebotomy services representative on educational MDRO sheet. 9. Encourage and monitor nutritional status daily and consult bait maker if indicated. 10. Implement neutropenic guidelines as needed. Outcome: Progressing Note: Evaluation of progress towards goal: No s/s of infection at this time Problem: Knowledge Deficit Goal: Patient/patient phlebotomy services representative demonstrates understanding of disease process, [...] Score of =/> 25 or indicated by [facility] Assessment Goal: Patient should be free from fall Description: Interventions: 1. [place] to environment 2. Hourly rounds addressing the [...] non-skid footwear 11. Teach patient and patient phlebotomy services representative to maintain environment for safety [...] (cane, walker) within reach 19. Request patient phlebotomy services representative bring adaptive equipment/mobility aids from home or obtain and provide as needed 20. Consult pharmacy regarding effects of med's affecting mobility, cognition, and alternatives 21. Obtain physician order for PT if risk factors associated with mobility are present 22. Obtain physician order for OT as appropriate 23. Utilize diversional activities 24. Educate patient and patient phlebotomy services representative how to maintain a safe environment during visitationtimes (notify nurse prior to leaving bedside) 25. Consider appropriateness of medical or non-medical record administrator 26. Set up voiding schedule as appropriate (every 2 hours) Outcome: Progressing Note: Evaluation of progress towards goal: pt free from fall at this time Problem: Knowledge Deficit Goal: Patient/patient phlebotomy services representative demonstrates understanding of disease process, [...] attending, clinical handoff received from Neurology resident. [facility] will assume careas primary team of this [...] will need updated PT/OT notes sent to [facility]. When pt/ot worked w him yesterday they [...] received a voice mail from Franc at [facility] phone [phone], she says she has left a few messages for an update for patient. This is the only vm I have received. Sending an Iotera chat to Rohini / Vivienne / Mesha with information * Plan of Care - Nicole Sparks RN - 06/19/2025 11:13 PM EDT Problem: Pain Goal: Patient goal is pain score less than 4, able to rest, and participant in treatment plan as appropriate Description: INTERVENTIONS: 1. Encourage patient or legal phlebotomy services representative to report early pain and [...] per policy 9. Teach patient or legal phlebotomy services representative interventions for comforting Outcome: Progressing [...] at the bedside 7. Instruct patient/ patient phlebotomy services representative about use of safety devices 8. Include patient/ patient phlebotomy services representative in decisions related to safety [...] hygiene technique. 7. Identify and instruct patient/patient phlebotomy services representative in use of appropriate isolation precautionsfor identified infection/symptoms. 8. Provide and discuss with patient/patient phlebotomy services representative on educational MDRO sheet. 9. Encourage and monitor nutritional status daily and consult bait maker if indicated. 10. Implement neutropenic guidelines as [...] supplement as ordered 13. Collaborate with clinical bait maker 14. Include patient/ patient's phlebotomy services representative in decisions related to nutrition [...] Score of =/> 25 or indicated by [facility] Assessment Goal: Patient should be free from fall Description: Interventions: 1. [place] to environment 2. Hourly rounds addressing the [...] non-skid footwear 11. Teach patient and patient phlebotomy services representative to maintain environment for safety [...] (cane, walker) within reach 19. Request patient phlebotomy services representative bring adaptive equipment/mobility aids from home or obtain and provide as needed 20. Consult pharmacy regarding effects of med's affecting mobility, cognition, and alternatives 21. Obtain physician order for PT if risk factors associated with mobility are present 22. Obtain physician order for OT as appropriate 23. Utilize diversional activities 24. Educate patient and patient phlebotomy services representative how to maintain a safe environment during visitationtimes (notify nurse prior to leaving bedside) 25. Consider appropriateness of medical or non-medical record administrator 26. Set up voiding schedule as appropriate (every 2 hours) Outcome: Progressing Note: Evaluation of progress towards goal: pt free from fall at this time safety measures in place * PT/OT/COMPUTER LAB ASSISTANT - Ayaan Campos PT - 06/19/2025 2:49 PM EDT Physical [...] 6 Clicks: Basic Mobility Raw Score: 6 [facility] Code Modifier: CN SwePASS score = 4/36 Pt is an 85 yo male admit 06/17 with L sided weakness and aphasia while at Coumadin clinic. NIHSS = 13. Pt with recent hospitalization 06/02 s/p fall while adjusting lawn chair with nasal bone fracture and persistent epistaxis. CT brain - no acute CTA - R P1/P2 occlusion. TNK given and transfer to [facility]. On arrival, NIHSS = 0 CT [...] been lethargic, not following commands 06/19 - RN Deepali aware. Past Medical History: Diagnosis Date Atrial fibrillation ([facility]) BPH (benign prostatic hyperplasia) Broken nose CVA (cerebral vascular accident) ([facility]) 06/17/2025 Diabetes ([facility]) Epistaxis Hypertension Hyponatremia secondary [...] tolerated Equipment: repositioning sling, IV, bed alarm Telemetry/Rock Dust Sprayer: Yes Oxygen Used: room air Other: high [...] with rails Stairs to Enter: 2 from passenger vessel chef Rails: Right Stairs in Home: 0 Bathroom Shower/Tub: Walk-in shower Bathroom Toilet: Standard Home Equipment: Rolling walker Other : Home info from EMR review of recent therapy eval at [facility] - pt not able to answer questionsthis date and no family present. 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 Principal Problem: CVA (cerebral vascular accident) ([facility]) * PT/OT/COMPUTER LAB ASSISTANT - Veronica Rivera OTR/L - 06/19/2025 2:48 PM EDT Occupational Therapy Evaluation Discharge Recommendations for Safe Patient Transition Discharge Recommendations: Post acute - moderate Post Acute Moderate Rehab Needs: Recommend moderate intensity rehab, Tolerate 1- 2 hrs of therapy 3-5 days/wk, Subacute or chronic functional impairment Current Impairments Informing Therapy Recommendation: Ambulation status/safety, Cognition, Fall risk, ADL status, Communication needs, Endurance level Modified [place] Level of Disability: Severe disability 0= No [...] lot Scoring Daily Activity Raw Score: 12 CMS G Code Modifier: CL Modifed chip index; [...] Past Medical History: Diagnosis Date Atrial fibrillation ([facility]) BPH (benign prostatic hyperplasia) Broken nose CVA (cerebral vascular accident) ([facility]) 06/17/2025 Diabetes ([facility]) Epistaxis Hypertension Hyponatremia secondary [...] per early mobility guidelines. Equipment: telemetry, IV Telemetry/Rock Dust Sprayer: Yes Oxygen Used: room air Other: fall [...] problems. Principal Problem: CVA (cerebral vascular accident) ([facility]) * Discharge Planning Note - Dawson Yost [...] Home with home health services Facility/Service Name [facility] Case discussed in daily transition rounds and chart reviewed by CN. Barriers to discharge include PT/OT, PMR to see, Discharge Plan remains: Home with HHC vs IPR. [facility] will accept. [facility] IPR- will need PT/OT notes as soon [...] Description: INTERVENTIONS: 1. Encourage patient or legal phlebotomy services representative to report early pain and [...] per policy 9. Teach patient or legal phlebotomy services representative interventions for comforting Outcome: Progressing [...] at the bedside 7. Instruct patient/ patient phlebotomy services representative about use of safety devices 8. Include patient/ patient phlebotomy services representative in decisions related to safety [...] hygiene technique. 7. Identify and instruct patient/patient phlebotomy services representative in use of appropriate isolation precautionsfor identified infection/symptoms. 8. Provide and discuss with patient/patient phlebotomy services representative on educational MDRO sheet. 9. Encourage and monitor nutritional status daily and consult bait maker if indicated. 10. Implement neutropenic guidelines as needed. Outcome: Progressing Note: Evaluation of progress towards goal: Pt should remain free from infection during this shift. Standard precautions used during care. Problem: Knowledge Deficit Goal: Patient/patient phlebotomy services representative demonstrates understanding of disease process, [...] Score of =/> 25 or indicated by [facility] Assessment Goal: Patient should be free from fall Description: Interventions: 1. [place] to environment 2. Hourly rounds addressing the [...] non-skid footwear 11. Teach patient and patient phlebotomy services representative to maintain environment for safety [...] (cane, walker) within reach 19. Request patient phlebotomy services representative bring adaptive equipment/mobility aids from home or obtain and provide as needed 20. Consult pharmacy regarding effects of med's affecting mobility, cognition, and alternatives 21. Obtain physician order for PT if risk factors associated with mobility are present 22. Obtain physician order for OT as appropriate 23. Utilize diversional activities 24. Educate patient and patient phlebotomy services representative how to maintain a safe environment during visitationtimes (notify nurse prior to leaving bedside) 25. Consider appropriateness of medical or non-medical record administrator 26. Set up voiding schedule as appropriate [...] EDT DISCHARGE PLANNING NOTE Referral sent to [facility] in [place] (P# ; F# ) * Discharge Planning Note - Brianna Verduzco - 06/18/2025 1:04 PM EDT DISCHARGE PLANNING NOTE Referral sent to. [facility] in [place], [place] (P# ; F# ) * Discharge [...] Acute rehab, Home with home health services Shuttle Repairer met with patient, introduced self, and explained role. Patient educated on safe discharge plan. Pt admitted 06/17/2025 with [facility] [[facility]] per chart review. Consults: Neurology Discharge Barriers per Daily Transition Rounds and chart review: PT/OT, s/p TNK- bedrest, MRi, echo. 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 Caregiver's personal limitations include Patient's feels she [...] vs acute rehab. PCP: TANYA Lozano Pharmacy: [facility] PCP and pharmacy confirmed with patient. CN offered to assist with follow up appointment arrangements; . TANYA Lozano added to Follow Up Providers for Summary of Care communication. Per patient self-report: Drug use: denies Smoking: denies ETOH Use: rarely Current discharge plan is: Home with [facility] vs acute rehab pending PT/OT eval. CN spoke with patient'swife she has used [facility] health in past. Tasked to send referrals to [facility] and to [facility]. Services Requested: Services Requested Patient expects to [...] Evaluation of progress towards goal: Home with [facility] Autogenerated Goal Will continue to follow as plan of care develops. CN discussed benefits and importance of medication compliance and follow ups. Please feel free to reach out for any discharge planning questions. - Dawson Yost RN 06/18/25 12:24 PM * PT/OT/COMPUTER LAB ASSISTANT - Zaire SierraKEILA-COMPUTER LAB ASSISTANT - 06/18/2025 10:35 AM EDT Speech Therapy Evaluation Bedside Swallow/Feeding Evaluation Speech & Language Cognitive Evaluation Discharge Recommendations for Safe Patient Transition COMPUTER LAB ASSISTANT Post Discharge Therapy Recommendations: Continue ST services [...] decline resulting from CVA. Prognosis Services: Skilled COMPUTER LAB ASSISTANT services to address above deficits Prognosis/Potential: Good Considerations: Age, Cognition Discharge Recommendations for Safe Patient Transition COMPUTER LAB ASSISTANT Post Discharge Therapy Recommendations: Continue ST services [...] should be further evaluated. Prognosis Services: Skilled COMPUTER LAB ASSISTANT services to address the above deficits Prognosis/Potential: [...] Dysphagia Problem: Swallowing Dates: Start: 06/18/25 Disciplines: COMPUTER LAB ASSISTANT Goal: STG: Patient will complete safety strategies independently during PO intake 90% of the time Dates: Start: 06/18/25 Expected End: 07/22/25 Disciplines: COMPUTER LAB ASSISTANT Template: ST - Rehab Speech Problem: Auditory Comprehension Dates: Start: 06/18/25 Disciplines: COMPUTER LAB ASSISTANT Goal: LTG: Patient will comprehend communication related to basic medical and social needs and utilize compensatory strategies to maintain safety in a functional living environment Dates: Start: 06/18/25 Expected End: 07/22/25 Disciplines: COMPUTER LAB ASSISTANT Goal: STG: Patient will answer simple yes/no questions with 90% accuracy with minimal cueing. Dates: Start: 06/18/25 Expected End: 07/22/25 Disciplines: COMPUTER LAB ASSISTANT Goal: STG: Patient will answer complex yes/no questions with 90% accuracy with minimal cueing Dates: Start: 06/18/25 Expected End: 07/22/25 Disciplines: COMPUTER LAB ASSISTANT Problem: Verbal Expression Dates: Start: 06/18/25 Disciplines: COMPUTER LAB ASSISTANT Goal: LTG: Patient will utilize compensatory strategies to communicate wants and needs effectively to different conversational partners, maintain safety and participate socially in a functional living environment Dates: Start: 06/18/25 Expected End: 07/22/25 Disciplines: COMPUTER LAB ASSISTANT Goal: STG: Patient will complete simple to complex divergent and convergent naming tasks with 90% accuracy with minimal cueing to improve thought organization Dates: Start: 06/18/25 Expected End: 07/22/25 Disciplines: COMPUTER LAB ASSISTANT Goal: STG: Patient will use word retrieval strategies during structured interactions to improve functional communication during activities of daily living with 90% accuracy with minimal cueing Dates: Start: 06/18/25 Expected End: 07/22/25 Disciplines: COMPUTER LAB ASSISTANT Speech Therapy Care Plan (Resolved) There are no resolved problems. Principal Problem: CVA (cerebral vascular accident) ([facility]) * PT/OT/COMPUTER LAB ASSISTANT - ALVARO Chino/Krishan - 06/18/2025 7:37 AM EDT Occupational Therapy OT Type of Visit: Medical deferral Reason For Medical Deferral: Activity limitations Activity Limitations: Strict bedrest (Per TNK protocol. Will continue to follow.) * PT/OT/COMPUTER LAB ASSISTANT - Ayaan Campos, PT - 06/18/2025 7:28 AM EDT Physical [...] Description: INTERVENTIONS: 1. Encourage patient or legal phlebotomy services representative to report early pain and [...] per policy 9. Teach patient or legal phlebotomy services representative interventions for comforting Outcome: Progressing [...] at the bedside 7. Instruct patient/ patient phlebotomy services representative about use of safety devices 8. Include patient/ patient phlebotomy services representative in decisions related to safety [...] hygiene technique. 7. Identify and instruct patient/patient phlebotomy services representative in use of appropriate isolation precautionsfor identified infection/symptoms. 8. Provide and discuss with patient/patient phlebotomy services representative on educational MDRO sheet. 9. Encourage and monitor nutritional status daily and consult bait maker if indicated. 10. Implement neutropenic guidelines as [...] be free from fall Description: Interventions: 1. [place] to environment 2. Hourly rounds addressing the [...] non-skid footwear 11. Teach patient and patient phlebotomy services representative to maintain environment for safety [...] (cane, walker) within reach 19. Request patient phlebotomy services representative bring adaptive equipment/mobility aids from home or obtain and provide as needed 20. Consult pharmacy regarding effects of med's affecting mobility, cognition, and alternatives 21. Obtain physician order for PT if risk factors associated with mobility are present 22. Obtain physician order for OT as appropriate 23. Utilize diversional activities 24. Educate patient and patient phlebotomy services representative how to maintain a safe environment during visitationtimes (notify nurse prior to leaving bedside) 25. Consider appropriateness of medical or non-medical record administrator 26. Set up voiding schedule as appropriate [...] Description: INTERVENTIONS: 1. Encourage patient or legal phlebotomy services representative to report early pain and [...] per policy 9. Teach patient or legal phlebotomy services representative interventions for comforting Outcome: Progressing [...] at the bedside 7. Instruct patient/ patient phlebotomy services representative about use of safety devices 8. Include patient/ patient phlebotomy services representative in decisions related to safety [...] hygiene technique. 7. Identify and instruct patient/patient phlebotomy services representative in use of appropriate isolation precautionsfor identified infection/symptoms. 8. Provide and discuss with patient/patient phlebotomy services representative on educational MDRO sheet. 9. Encourage and monitor nutritional status daily and consult bait maker if indicated. 10. Implement neutropenic guidelines as needed. Outcome: Progressing Note: Evaluation of progress towards goal: Patient remains free from signs of infection at this time. Will continue to monitor. Problem: Knowledge Deficit Goal: Patient/patient phlebotomy services representative demonstrates understanding of disease process, [...] be free from fall Description: Interventions: 1. [place] to environment 2. Hourly rounds addressing the [...] non-skid footwear 11. Teach patient and patient phlebotomy services representative to maintain environment for safety [...] (cane, walker) within reach 19. Request patient phlebotomy services representative bring adaptive equipment/mobility aids from home or obtain and provide as needed 20. Consult pharmacy regarding effects of med's affecting mobility, cognition, and alternatives 21. Obtain physician order for PT if risk factors associated with mobility are present 22. Obtain physician order for OT as appropriate 23. Utilize diversional activities 24. Educate patient and patient phlebotomy services representative how to maintain a safe environment during visitationtimes (notify nurse prior to leaving bedside) 25. Consider appropriateness of medical or non-medical record administrator 26. Set up voiding schedule as appropriate (every 2 hours) Outcome: Progressing Note: Evaluation of progress towards goal: Fall risk assessment preformed and safety measures in place. Education given to family/patient. Will continue to monitor. Additional Comments: documented in this encounterSt. [facility]'s [facility]08-10-2025 Progress note* Discharge Planning Note - Hellen Brady - 06/23/2025 10:54 AM EDT DISCHARGE PLANNING NOTE BLS via PTN scheduled for today 06/23/25 at [address] [facility]. Confirmed in [facility]. [facility] Progress note* Discharge Planning Note - CHARLES Lee - 06/23/2025 10:39 AM EDT DISCHARGE PLANNING NOTE Discharge written, CRF complete. Social work task [facility] to arrange BLS transport- wait confirmed time. [facility]rod [facility] notified of discharge and CRF sent. HENS submitted. is aware and agreeable to transition plan. RN updated. - CHARLES LEE 06/23/25 10:[address] [facility]08-[facility] Hospital course Narrative* Erika Crisostomo MD - 06/23/2025 10:30 AM EDT Images from the original note were not included. [facility] Discharge Summary Patient's Name: Dariel Zabala Date of : 1940 Age: 85 yrs Gender: male PCP: Patient Care Team: TANYA Lozano as PCP - General (Family Medicine) DATE OF ADMISSION: 06/17/2025 DATE OF DISCHARGE: 06/23/2025 DISCHARGE DIAGNOSES: Active Hospital Problems Diagnosis Date Noted CVA (cerebral vascular accident) ([facility]) 06/17/2025 Resolved Problems No resolved problems to display. CONSULTANTS: Consulting Providers Provider Service Specialty MD Kassi Gonsales Physical Medicine and Rehabilitation Physical Medicine & Rehabilitation MD Kassi Zuniga Nephrology Nephrology Promedic Physician Cardiology -- Cardiology Things needing follow [...] in his anticoagulation Patient was discharged to residential facility at a stable condition Discharge Medications: [...] total) by mouth in the morning. coenzyme [id number] E 100-5 mg-unit capsule Take 100 mg [...] Your Medications These medications were sent to [facility]/pharmacy #[id number] AT CORNER OF [address] [address] apixaban 5 mg tablet midodrine 5 mg [...] Extra Tubes. Procedure Abnormality Status --------- ------ Nova Ratio[[id number]] Final result Please view results for these [...] results found. Discharge Instructions Disposition: Discharge to residential facility Condition: Stable Activity: activity as tolerated Diet: Adult diet Regular Texture; Fluid Restriction 1800 mL Adult diet Yanique McneillASTRIDN-GRAPHIC ARTS TECHNICIAN [address] [facility] [address] Follow up Information Provided to the Patient: Patient given copy of Discharge Instructions, patient hospital stay was discussed. No special instructions. I have spent 35 minutes coordinating and preparing this discharge. I have discussed the patient's hospitalization course, treatment plan and follow up instructions with patient and . I have answered all the patient's questions. Electronically signed by: ERIKA CRISOSTOMO MD [facility] Physician Hospitalists, Department of Internal Medicine [...] have escaped final proofreading documented in this encounterSt. Mary's Medical Center08-10-2025 History of Present illness Narrative* [...] PLATELETS X10E9/L 234 212 189 204 200 @RESUFAST(IRON,TIBC,FERRITIN,IRONSAT,FOLATE,[id number]))@ Results from last 7 days Lab Units [...] parameters to maintain systolic blood pressure more [id number] and less than 120. 4. Atrial fibrillation: [...] For questions please call: Answering Service at [phone] Or Office at [phone] This note was created with the assistance of a speech-recognition program. Although the intention is to generate a document that actually reflects the content of the visit, no guarantees can be provided that every mistake has been identified and corrected by editing. * Erika Crisostomo MD - 06/22/2025 12:57 PM EDT Images from the original note were not included. [facility] Progress Note 06/22/2025 Patient Name: [...] Tubes. Procedure Abnormality Status --------- ------ Lavender Top[[id number]] Final result Please view results for these [...] from last 7 days Lab Units 06/22/2522006/21/2575706/20/25 0806/19/2571706/18/25 1528 06/18/25 0343 WBC x10E9/L 5.6 5.3 6.5 7.9 -- 5.4 HEMOGLOBIN g/dL 12.5* 14.1 13.3 13.4 13.9 12.7* HEMATOCRIT % 36.3* 40.7 38.1* 38.7* -- 36.0* PLATELETS X10E9/L 212 189 204 200 214 251 @RESUFAST(IRON,TIBC,FERRITIN,IRONSAT,FOLATE,[id number]))@ Results from last 7 days Lab Units 06/22/25 02206/21/2575706/20/25 0844 06/19/25 0718 06/18/25 1601 BEDSIDE GLUCOSE [...] For questions please call: Answering Service at [phone] Or Office at [phone] This note was created with the assistance [...] clinical progress daily. Griselda Ramirez PharmD Ext [phone] * Erika Crissotomo MD - 06/21/2025 3:47 PM EDT Images from the original note were not included. [facility] Hospitalists Progress Note 06/21/2025 Patient [...] Tubes. Procedure Abnormality Status --------- ------ Lavender Top[[id number]] Final result Please view results for these [...] Results from last 7 days Lab Units 06/21/2575706/20/25 0844 06/19/25 0718 WBC x10E9/L 5.3 6.5 [...] QUESTIONS FEEL FREE TO CALL: 1. OFFICE [phone] 2. ANSWERING SERVICE:[phone] YOU CAN CONTACT ME THROUGH [employer] DURING THE DAYTIME HOURS, IF NO RESPONSE AFTER 5 MINUTES CALL THE ANSWERING SERVICE This note was created with the assistance of a speech-recognition program. Although the intention is to generate a document that actually reflects the content of the visit, no guarantees can be provided that every mistake has been identified and corrected by editing. * Vinh Andre, [facility] - 06/21/2025 9:56 AM EDT Pharmacokinetic Consult [...] reportedly received TNK prior to arrival to [facility], heparin infusion bridge Drug-disease Interactions: - [...] patient's clinical progress daily. Vinh Andre, PharmD, [facility] [id number] * Myrtle Jacome MD - 06/21/2025 7:52 [...] Problem List Diagnosis CVA (cerebral vascular accident) ([facility]) Encephalopathy Recommendations/Plan: Continue PT, OT Max assist x2 bed mobility Family education Coumadin for AFib Consider residential facility Will follow up with you for rehab needs Myrtle Jacome MD * Noreen Myers RPH - 06/20/2025 10:20 AM EDT Pharmacokinetic Consult [...] clinical progress daily. Noreen Myers RPH Ext [phone] * Pat Araiza RN - 06/19/2025 8:52 PM EDT Images from the original note were not included. FOLLOW-UP: Post-Intensive Care Rounding Note Patient: Dariel Zabala : 1940 Age: 85 y.o. Length of Stay: 2 days Admission Diagnosis: CVA (cerebral vascular accident) ([facility]) [I63.9] Reviewing patient due to his recent transfer out from Intensive Care. Recorded vital signs are stable and the patient is not noted to be in any apparent distress. Telemetry and monitoring noted. Staff may call with any issues or concerns regarding his clinical presentation or stability. Thank you, Pat Araiza RN Rapid Response: [facility] * Rahat Mallory RPH - [...] days Admission Diagnosis: CVA (cerebral vascular accident) ([facility]) [I63.9] Reviewing patient due to his recent transfer out from Intensive Care. Recorded vital signs are stable and the patient is not noted to be in any apparent distress. Telemetry and monitoring noted. Staff may call with any issues or concerns regarding his clinical presentation or stability. Thank you, JOSSELYN LARA RN Rapid Response: [facility] * Pat Araiza RN - 06/18/2025 8:32 PM EDT Images from the original note were not included. FOLLOW-UP: Post-Intensive Care Rounding Note Patient: Dariel Zabala : 1940 Age: 85 y.o. Length of Stay: 1 days Admission Diagnosis: CVA (cerebral vascular accident) ([facility]) [I63.9] Reviewing patient due to his recent transfer out from Intensive Care. Recorded vital signs are stable and the patient is not noted to be in any apparent distress. Telemetry and monitoring noted. Staff may call with any issues or concerns regarding his clinical presentation or stability. Thank you, Pat Araiza RN Rapid Response: [facility] documented in this encounterSt. Mary's Medical Center08-10-2025 Plan of care note * Plan of Care - Yonathan Joy RN - 06/23/2025 6:29 AM EDT Problem: Pain Goal: Patient goal is pain score less than 4, able to rest, and participant in treatment plan as appropriate Description: INTERVENTIONS: 1. Encourage patient or legal phlebotomy services representative to report early pain and [...] per policy 9. Teach patient or legal phlebotomy services representative interventions for comforting 06/23/2025 0628 [...] at the bedside 7. Instruct patient/ patient phlebotomy services representative about use of safety devices 8. Include patient/ patient phlebotomy services representative in decisions related to safety [...] hygiene technique. 7. Identify and instruct patient/patient phlebotomy services representative in use of appropriate isolation precautionsfor identified infection/symptoms. 8. Provide and discuss with patient/patient phlebotomy services representative on educational MDRO sheet. 9. Encourage and monitor nutritional status daily and consult bait maker if indicated. 10. Implement neutropenic guidelines as needed. Outcome: Progressing Note: Evaluation of progress towards goal: Standard precaution maintained Problem: Knowledge Deficit Goal: Patient/patient phlebotomy services representative demonstrates understanding of disease process, [...] supplement as ordered 13. Collaborate with clinical bait maker 14. Include patient/ patient's phlebotomy services representative in decisions related to nutrition [...] develop effective communication strategies 4. Include patient/patient phlebotomy services representative in decisions related to communication [...] Collaborate with ancillary departments 14. Include patient/patient phlebotomy services representative in decisions related to anxiety [...] to assist with coping 8. Involve patient's phlebotomy services representative in care Outcome: Progressing Note: [...] Score of =/> 25 or indicated by [facility] Assessment Goal: Patient should be free from fall Description: Interventions: 1. [place] to environment 2. Hourly rounds addressing the [...] non-skid footwear 11. Teach patient and patient phlebotomy services representative to maintain environment for safety [...] (cane, walker) within reach 19. Request patient phlebotomy services representative bring adaptive equipment/mobility aids from home or obtain and provide as needed 20. Consult pharmacy regarding effects of med's affecting mobility, cognition, and alternatives 21. Obtain physician order for PT if risk factors associated with mobility are present 22. Obtain physician order for OT as appropriate 23. Utilize diversional activities 24. Educate patient and patient phlebotomy services representative how to maintain a safe environment during visitationtimes (notify nurse prior to leaving bedside) 25. Consider appropriateness of medical or non-medical record administrator 26. Set up voiding schedule as appropriate (every 2 hours) Outcome: Progressing Note: Evaluation of progress towards goal: Fall bundles maintained [facility]08-09-2025 Consult note* Kaye Goel MD - 06/22/2025 4:04 PM EDTAssociated Order(s): IP CONSULT TO CARDIOLOGY Images from the original note were not included. [facility] [address] [place] [address] HISTORY & PHYSICAL / CONSULT NOTE Dariel Zabala PCP: Yanique Mcneill APRN-AVELINA Date of Admission: 06/17/2025 Date of Consultation: 06/22/2025 4:05 PM Consult for atrial fibrillation, bradycardia, intermittent pauses SUBJECTIVE History of Present Illness: Dariel Valeriano Zabala is a 85 y.o. male w/ PMH RUFINO s/p R CEA, DMII, HLD, hypothyroidism, HTN, SIADH, recent TIA 05/2025, and permanent atrial fibrillation w/ [id number] 7 on warfarin who presented 06/17/25 with RLE weakness and aphasia. He received TNK at OSH for R P1/P2 occlusion and subsequently transferred to [facility]. Head imaging w/o acute infarct, but [...] Past Medical History: Diagnosis Date Atrial fibrillation ([facility]) BPH (benign prostatic hyperplasia) Broken nose CVA (cerebral vascular accident) ([facility]) 06/17/2025 Diabetes ([facility]) Epistaxis Hypertension Hyponatremia secondary [...] intravenous PRN Rocio Davis MD heparin infusion 45893 units/500 mL in 0.45% NaCl (50 units/mL premix) 300-3,500 Units/hr intravenous Continuous Rocio Davis MD 21 mL/hr at 06/21/25 1326 1,050 Units/hr at 06/21/25 1326 hydrALAZINE (APRESOLINE) injection 10 mg 10 mg intravenous Q6H PRN Rocio Davis MD labetaloL (NORMODYNE,TRANDATE) injection 20 mg 20 mg intravenous Q10 Min PRRomina Davis MD levothyroxine (SYNTHROID, LEVOTHROID) tablet 25 mcg 25 mcg oral Daily Kendell Bender MD 25 mcg at 06/22/25 0649 lidocaine (LIDODERM) 5 % 1 patch 1 patch transdermal Daily Kendell Bender MD 1 patch at 831 magnesium sulfate IVPB 2000 mg/50 mL in iso-osmotic water (40 mg/mL premix) 2,000 mg intravenous PRRomina Davis MD Or magnesium sulfate IVPB 4000 mg/100 mL in iso-osmotic water (40 mg/mL premix) 4,000 mg intravenous ASHLEY Davis MD Stopped at 06/19/25 0217 midodrine [...] Yes Not In System Ref Prov coenzyme D13-tvicrkr E 100-5 mg-unit capsule Take 100 mg [...] Extremities: No edema ASSESSMENT Permanent atrial fibrillation, [id number] 8, on heparin gtt/warfarin L CVA s/p [...] This note was completed using a voice bumper straightener system. Every effort was made to ensure accuracy. However, inadvertent computerized bumper straightener errors may be present. [employer] Work Phone: [phone] [phone] Consult note* Kaye Goel MD - 06/22/2025 4:04 PM EDTAssociated Order(s): IP CONSULT TO CARDIOLOGY Images from the original note were not included. [facility] [address] [place] [address] HISTORY & PHYSICAL / CONSULT NOTE Dariel Zabala PCP: TANYA Lozano Date of Admission: 06/17/2025 Date of Consultation: 06/22/2025 4:05 PM Consult for atrial fibrillation, bradycardia, intermittent pauses SUBJECTIVE History of Present Illness: Dariel Zabala is a 85 y.o. male w/ PMH RUFINO s/p R CEA, DMII, HLD, hypothyroidism, HTN, SIADH, recent TIA 05/2025, and permanent atrial fibrillation w/ [id number] 7 on warfarin who presented 06/17/25 with RLE weakness and aphasia. He received TNK at OSH for R P1/P2 occlusion and subsequently transferred to [facility]. Head imaging w/o acute infarct, but [...] Past Medical History: Diagnosis Date Atrial fibrillation ([facility]) BPH (benign prostatic hyperplasia) Broken nose CVA (cerebral vascular accident) ([facility]) 06/17/2025 Diabetes ([facility]) Epistaxis Hypertension Hyponatremia secondary [...] intravenous PRN Rocio Davis MD heparin infusion 67867 units/500 mL in 0.45% NaCl (50 units/mL [...] Yes Not In System Ref Prov coenzyme F26-tpihlsq E 100-5 mg-unit capsule Take 100 mg [...] Results from last 7 days Lab Units 06/22/2522006/21/25 0758 06/20/25 0844 WBC x10E9/L 5.6 5.3 [...] Results from last 7 days Lab Units 06/22/2521906/21/2575706/20/25 0844 PROTIME sec 19.9* 17.7* 15.0* INR [...] Extremities: No edema ASSESSMENT Permanent atrial fibrillation, [id number] 8, on heparin gtt/warfarin L CVA s/p [...] This note was completed using a voice bumper straightener system. Every effort was made to ensure accuracy. However, inadvertent computerized bumper straightener errors may be present. * Richa Beyer MD - 06/20/2025 1:56 PM EDTAssociated Order(s): IP CONSULT TO PHYSICAL MEDICINE REHAB Images from the original note were not included. PHYSICAL MEDICINE AND REHABILITATION CONSULT Date of Admission: 06/17/2025 1:38 PM Referring Physician: Mirian Carranza MD PCP: TANYA Lozano Chief Compliant: Principal Problem: CVA (cerebral vascular accident) ([facility]) Reason for Consultation: Rehabilitation Candidacy and Rehab Superintendent [facility] Physicians[facility]Services Consulting Providers Provider Service Specialty MD [...] given to the patient and transferred to [facility]. CT perfusion study showed deficit in [...] Past Medical History: Diagnosis Date Atrial fibrillation ([facility]) BPH (benign prostatic hyperplasia) Broken nose CVA (cerebral vascular accident) ([facility]) 06/17/2025 Diabetes ([facility]) Epistaxis Hypertension Hyponatremia secondary [...] End: 06:30 06/20/2025 This is [facility] EEG monitoring reportusing scalp and ear electrodes [...] or primary neurological disorders. Yaquelin Esparza MD Senior Industrial Engineer Neurology/Neurophysiology [facility] Recent Results (from [...] Extra Tubes. Procedure Abnormality Status --------- ------ [facility] TOP[[id number]] Final result Please view results for these [...] Assessment/Plan Principal Problem: CVA (cerebral vascular accident) ([facility]) MRI is negative for ischemia Debility [...] by mouth in the morning. Taking coenzyme L51-diinlnj E 100-5 mg-unit capsule Take 100 mg [...] anticoagulation MAISHA VERGARA MD [facility] ANY QUESTIONS FEEL FREE TO CALL: 1. OFFICE [phone] 2. ANSWERING SERVICE:[phone] YOU CAN CONTACT ME THROUGH [employer] DURING THE DAYTIME HOURS, IF NO RESPONSE AFTER 5 MINUTES CALL THE ANSWERING SERVICE This note was created with the assistance of a speech-recognition program. Although the intention is to generate a document that actually reflects the content of the visit, no guarantees can be provided that every mistake has been identified and corrected by editing. documented in this encounterSt. [facility] Plan of care note * Plan of Care - Debra Huggins RN - 06/22/2025 2:18 PM EDT Problem: Pain Goal: Patient goal is pain score less than 4, able to rest, and participant in treatment plan as appropriate Description: INTERVENTIONS: 1. Encourage patient or legal phlebotomy services representative to report early pain and [...] per policy 9. Teach patient or legal phlebotomy services representative interventions for comforting Outcome: Progressing [...] at the bedside 7. Instruct patient/ patient phlebotomy services representative about use of safety devices 8. Include patient/ patient phlebotomy services representative in decisions related to safety [...] hygiene technique. 7. Identify and instruct patient/patient phlebotomy services representative in use of appropriate isolation precautionsfor identified infection/symptoms. 8. Provide and discuss with patient/patient phlebotomy services representative on educational MDRO sheet. 9. Encourage and monitor nutritional status daily and consult bait maker if indicated. 10. Implement neutropenic guidelines as needed. Outcome: Progressing Note: Evaluation of progress towards goal: continue to monitor labs, vitals, tele, IV site Problem: Knowledge Deficit Goal: Patient/patient phlebotomy services representative demonstrates understanding of disease process, [...] supplement as ordered 13. Collaborate with clinical bait maker 14. Include patient/ patient's phlebotomy services representative in decisions related to nutrition [...] develop effective communication strategies 4. Include patient/patient phlebotomy services representative in decisions related to communication Outcome: Progressing Note: Evaluation of progress towards goal: [place], speak loudly and understands Problem: Potential for [...] Collaborate with ancillary departments 14. Include patient/patient phlebotomy services representative in decisions related to anxiety [...] to assist with coping 8. Involve patient's phlebotomy services representative in care Outcome: Progressing Note: [...] Progressing Note: Evaluation of progress towards goal: [place] at [place] Problem: Moderate - High Risk Fall Score Description: [place] Fall Score of =/> 25 or indicated by [facility] Assessment Goal: Patient should be free from fall Description: Interventions: 1. [place] to environment 2. Hourly rounds addressing the [...] non-skid footwear 11. Teach patient and patient phlebotomy services representative to maintain environment for safety [...] (cane, walker) within reach 19. Request patient phlebotomy services representative bring adaptive equipment/mobility aids from home or obtain and provide as needed 20. Consult pharmacy regarding effects of med's affecting mobility, cognition, and alternatives 21. Obtain physician order for PT if risk factors associated with mobility are present 22. Obtain physician order for OT as appropriate 23. Utilize diversional activities 24. Educate patient and patient phlebotomy services representative how to maintain a safe environment during visitationtimes (notify nurse prior to leaving bedside) 25. Consider appropriateness of medical or non-medical record administrator 26. Set up voiding schedule as appropriate (every 2 hours) Outcome: Progressing Note: Evaluation of progress towards goal: no falls; syncopal episode per notes 06/21; up with assistonly; high fall risk - maintain precautions [facility]08-09-2025 Progress note* Discharge Planning Note - Norma Ritter - 06/22/2025 12:42 PM EDT DISCHARGE PLANNING NOTE Prior Auth approved for admission to : [facility] (P# ; F# ) Approval # [id number] Valid for Dates: 06/22/2025 - 06/28/2025 [facility]08-09-2025 Progress note* Discharge Planning Note - Norma Ritter - 06/22/2025 10:39 AM EDT DISCHARGE PLANNING NOTE Prior auth submitted to: [employer] Via: [employer] On behalf of : [facility] (P# ; F# ) Ref# [id number] [facility]08-09-2025 Progress note* Discharge Planning Note - CHARLES Lee - 06/22/2025 10:15 AM EDT DISCHARGE PLANNING NOTE Case discussed in daily transition rounds and chart reviewed by CN. Discharge Plan remains: [facility]. [facility] accepting referral. Social work contacted to inform [...] LEE 06/22/25 2:[address] [facility]TV[facility] Orthopedic [phone] Plan of care note* Plan of Care - Yonathan Joy RN - 06/22/2025 3:45 AM EDT Problem: Pain Goal: Patient goal is pain score less than 4, able to rest, and participant in treatment plan as appropriate Description: INTERVENTIONS: 1. Encourage patient or legal phlebotomy services representative to report early pain and [...] per policy 9. Teach patient or legal phlebotomy services representative interventions for comforting Outcome: Progressing [...] at the bedside 7. Instruct patient/ patient phlebotomy services representative about use of safety devices 8. Include patient/ patient phlebotomy services representative in decisions related to safety [...] hygiene technique. 7. Identify and instruct patient/patient phlebotomy services representative in use of appropriate isolation precautionsfor identified infection/symptoms. 8. Provide and discuss with patient/patient phlebotomy services representative on educational MDRO sheet. 9. Encourage and monitor nutritional status daily and consult bait maker if indicated. 10. Implement neutropenic guidelines as needed. Outcome: Progressing Note: Evaluation of progress towards goal: Pt has no s/s of infection, standard precaution maintained Problem: Knowledge Deficit Goal: Patient/patient phlebotomy services representative demonstrates understanding of disease process, [...] supplement as ordered 13. Collaborate with clinical bait maker 14. Include patient/ patient's phlebotomy services representative in decisions related to nutrition [...] develop effective communication strategies 4. Include patient/patient phlebotomy services representative in decisions related to communication [...] Collaborate with ancillary departments 14. Include patient/patient phlebotomy services representative in decisions related to anxiety [...] to assist with coping 8. Involve patient's phlebotomy services representative in care Outcome: Progressing Note: [...] Score of =/> 25 or indicated by [facility] Assessment Goal: Patient should be free from fall Description: Interventions: 1. [place] to environment 2. Hourly rounds addressing the [...] non-skid footwear 11. Teach patient and patient phlebotomy services representative to maintain environment for safety [...] (cane, walker) within reach 19. Request patient phlebotomy services representative bring adaptive equipment/mobility aids from home or obtain and provide as needed 20. Consult pharmacy regarding effects of med's affecting mobility, cognition, and alternatives 21. Obtain physician order for PT if risk factors associated with mobility are present 22. Obtain physician order for OT as appropriate 23. Utilize diversional activities 24. Educate patient and patient phlebotomy services representative how to maintain a safe environment during visitationtimes (notify nurse prior to leaving bedside) 25. Consider appropriateness of medical or non-medical record administrator 26. Set up voiding schedule as appropriate (every 2 hours) Outcome: Progressing Note: Evaluation of progress towards goal: Fall bundles maintained [facility]08-08-2025 Plan of care note* Plan of Care - Lauren Gaona RN - 06/21/2025 6:18 PM EDT Problem: Knowledge Deficit Goal: Patient/patient phlebotomy services representative demonstrates understanding of disease process, [...] for adl's Problem: Knowledge Deficit Goal: Patient/patient phlebotomy services representative demonstrates understanding of disease process, [...] Description: INTERVENTIONS: 1. Encourage patient or legal phlebotomy services representative to report early pain and [...] per policy 9. Teach patient or legal phlebotomy services representative interventions for comforting Outcome: Progressing [...] at the bedside 7. Instruct patient/ patient phlebotomy services representative about use of safety devices 8. Include patient/ patient phlebotomy services representative in decisions related to safety [...] hygiene technique. 7. Identify and instruct patient/patient phlebotomy services representative in use of appropriate isolation precautionsfor identified infection/symptoms. 8. Provide and discuss with patient/patient phlebotomy services representative on educational MDRO sheet. 9. Encourage and monitor nutritional status daily and consult bait maker if indicated. 10. Implement neutropenic guidelines as [...] supplement as ordered 13. Collaborate with clinical bait maker 14. Include patient/ patient's phlebotomy services representative in decisions related to nutrition [...] develop effective communication strategies 4. Include patient/patient phlebotomy services representative in decisions related to communication [...] Collaborate with ancillary departments 14. Include patient/patient phlebotomy services representative in decisions related to anxiety [...] to assist with coping 8. Involve patient's phlebotomy services representative in care Outcome: Progressing Note: [...] Score of =/> 25 or indicated by [facility] Assessment Goal: Patient should be free from fall Description: Interventions: 1. [place] to environment 2. Hourly rounds addressing the [...] non-skid footwear 11. Teach patient and patient phlebotomy services representative to maintain environment for safety [...] (cane, walker) within reach 19. Request patient phlebotomy services representative bring adaptive equipment/mobility aids from home or obtain and provide as needed 20. Consult pharmacy regarding effects of med's affecting mobility, cognition, and alternatives 21. Obtain physician order for PT if risk factors associated with mobility are present 22. Obtain physician order for OT as appropriate 23. Utilize diversional activities 24. Educate patient and patient phlebotomy services representative how to maintain a safe environment during visitationtimes (notify nurse prior to leaving bedside) 25. Consider appropriateness of medical or non-medical record administrator 26. Set up voiding schedule as appropriate [...] Description: INTERVENTIONS: 1. Encourage patient or legal phlebotomy services representative to report early pain and [...] per policy 9. Teach patient or legal phlebotomy services representative interventions for comforting Outcome: Progressing [...] at the bedside 7. Instruct patient/ patient phlebotomy services representative about use of safety devices 8. Include patient/ patient phlebotomy services representative in decisions related to safety [...] hygiene technique. 7. Identify and instruct patient/patient phlebotomy services representative in use of appropriate isolation precautionsfor identified infection/symptoms. 8. Provide and discuss with patient/patient phlebotomy services representative on educational MDRO sheet. 9. Encourage and monitor nutritional status daily and consult bait maker if indicated. 10. Implement neutropenic guidelines as [...] supplement as ordered 13. Collaborate with clinical bait maker 14. Include patient/ patient's phlebotomy services representative in decisions related to nutrition [...] develop effective communication strategies 4. Include patient/patient phlebotomy services representative in decisions related to communication [...] Collaborate with ancillary departments 14. Include patient/patient phlebotomy services representative in decisions related to anxiety [...] to assist with coping 8. Involve patient's phlebotomy services representative in care Outcome: Progressing Note: [...] Score of =/> 25 or indicated by [facility] Assessment Goal: Patient should be free from fall Description: Interventions: 1. [place] to environment 2. Hourly rounds addressing the [...] non-skid footwear 11. Teach patient and patient phlebotomy services representative to maintain environment for safety [...] (cane, walker) within reach 19. Request patient phlebotomy services representative bring adaptive equipment/mobility aids from home or obtain and provide as needed 20. Consult pharmacy regarding effects of med's affecting mobility, cognition, and alternatives 21. Obtain physician order for PT if risk factors associated with mobility are present 22. Obtain physician order for OT as appropriate 23. Utilize diversional activities 24. Educate patient and patient phlebotomy services representative how to maintain a safe environment during visitationtimes (notify nurse prior to leaving bedside) 25. Consider appropriateness of medical or non-medical record administrator 26. Set up voiding schedule as appropriate (every 2 hours) Outcome: Progressing Note: Evaluation of progress towards goal: free of fall this shift Problem: Pain Goal: Patient goal is pain score less than 4, able to rest, and participant in treatment plan as appropriate Description: INTERVENTIONS: 1. Encourage patient or legal phlebotomy services representative to report early pain and [...] per policy 9. Teach patient or legal phlebotomy services representative interventions for comforting Outcome: Progressing [...] at the bedside 7. Instruct patient/ patient phlebotomy services representative about use of safety devices 8. Include patient/ patient phlebotomy services representative in decisions related to safety [...] at the bedside 7. Instruct patient/ patient phlebotomy services representative about use of safety devices 8. Include patient/ patient phlebotomy services representative in decisions related to safety [...] hygiene technique. 7. Identify and instruct patient/patient phlebotomy services representative in use of appropriate isolation precautionsfor identified infection/symptoms. 8. Provide and discuss with patient/patient phlebotomy services representative on educational MDRO sheet. 9. Encourage and monitor nutritional status daily and consult bait maker if indicated. 10. Implement neutropenic guidelines as [...] supplement as ordered 13. Collaborate with clinical bait maker 14. Include patient/ patient's phlebotomy services representative in decisions related to nutrition [...] develop effective communication strategies 4. Include patient/patient phlebotomy services representative in decisions related to communication [...] caffeine and (more content not included)... [facility]08-08-[facility]25 Progress note* Discharge Planning Note - Martina Mckeon - 06/21/2025 3:45 PM EDT DISCHARGE PLANNING NOTE Referral sent to [facility] (P# ; F# ) [facility]08-08-2025 Progress note* Discharge Planning Note [...] Yes List Provided Yes [facility] List Provided [facility] Facility Financial Disclosure Provided for In-Network Referral Yes DISCHARGE PLANNING NOTE CN spoke w pts , SNF choice is [facility]. She did n ot have a 2nd choice. CN asked her to review list for dditional choices. CN tasked for referral to [facility] [place]. Barriers: SNFaccept. Will need precert. CTbrain.Rohini Mcintyre RN [facility]08-08-2025 Nurse Note* Lauren Gaona RN - 06/21/2025 1:[address] Crisostomo, restart the heparin drip at this time, CTB negative. Restart at prior rate. Recheck antixa in [address] [facility]08-08-2025 Progress note* Discharge Planning Note - Rohini Mcintyre RN - 06/21/2025 12:44 PM EDT DISCHARGE PLANNING NOTE PT/OT rec SNF. CN called and left Voicemail for pts . Pt not appropriate for [facility] I[facility]. Need SNF choices. CN also sent SNF list Via careport to pts cell phone to select choices. Await response. Rohini Mcintyre RN [facility]08-08-2025 Progress note* PT/OT/COMPUTER LAB ASSISTANT - LU Enriquez - 06/21/2025 9:58 AM EDT Occupational Therapy Re-Evaluation Discharge Recommendations for Safe Patient Transition Discharge Recommendations: Post acute - moderate Post Acute Moderate Rehab Needs: Recommend moderate intensity rehab, Tolerate 1- 2 hrs of therapy 3-5 days/wk, Subacute or chronic functional impairment Current Impairments Informing Therapy Recommendation: Ambulation status/safety, Cognition, Fall risk, ADL status, Endurance level, Communication needs Modified [place] Level of Disability: Moderately severe disability 0= [...] None Scoring Daily Activity Raw Score: 14 [facility] G Code Modifier: CK Modified chip index: 04/02 Occupational Profile Patient seen for OT eval on 06-19-2025. Patient now seen for OT re-eval to update goals due to improved level of alertness and ability to participate in therapy. Patient admitted with left side weakness and aphasia. 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 History of A-fib on coumadin and diabetic. Continue to recommend residential facility. Patient with episode of decreased responsiveness with listing to the left while on commode for 1-2 minutes. Once alert patient was nauseated. RNLauren called to room. Patient assisted from stephanie gomes and MD in room. See below for past medical and past surgical history. Past Medical History: Diagnosis Date Atrial fibrillation ([facility]) BPH (benign prostatic hyperplasia) Broken nose CVA (cerebral vascular accident) ([facility]) 06/17/2025 Diabetes ([facility]) Epistaxis Hypertension Hyponatremia secondary [...] Equipment: waker, chair alarm, gait belt, telemetry. Telemetry/Rock Dust Sprayer: Yes Oxygen Used: room air Other: (S) [...] Patient will perform toilet transfers with Modified [place] Dates: Start: 06/21/25 Expected End: 07/19/25 Description: [...] problems. Principal Problem: CVA (cerebral vascular accident) ([facility]) [facility]08-08-2025 Progress note* PT/OT/COMPUTER LAB ASSISTANT - Ayaan Campos, PT - 06/21/2025 9:56 [...] Past Medical History: Diagnosis Date Atrial fibrillation ([facility]) BPH (benign prostatic hyperplasia) Broken nose CVA (cerebral vascular accident) ([facility]) 06/17/2025 Diabetes ([facility]) Epistaxis Hypertension Hyponatremia secondary [...] gait belt, wheeled walker, IV, chair/bed alarm Telemetry/Rock Dust Sprayer: Yes Oxygen Used: room air Other: (S) [...] problems. Principal Problem: CVA (cerebral vascular accident) ([facility]) [facility]08-08-2025 Nurse Note* Lauren Gaona RN - 06/21/2025 9:27 AM EDT In chair, alert and responding. BP 98/65. Dr Crisostomo returns page and updated on events. [facility]08-08-2025 Nurse Note* Lauren Gaona RN - 06/21/2025 9:22 AM EDT Working with physical and occupational therapy. Ambulated to bathroom, had been alert and conversing, suddenly became unresponsive, staring and leaning to left. Resolved after 2-3 minutes, then more alert and was able to state name. Assisted to chair. Dr Kranthi barrettd. [facility]08-07-2025 Plan of care note* Plan of Care - Nicole Sparks RN - 06/20/2025 11:40 PM EDT Problem: Pain Goal: Patient goal is pain score less than 4, able to rest, and participant in treatment plan as appropriate Description: INTERVENTIONS: 1. Encourage patient or legal phlebotomy services representative to report early pain and [...] per policy 9. Teach patient or legal phlebotomy services representative interventions for comforting Outcome: Progressing [...] at the bedside 7. Instruct patient/ patient phlebotomy services representative about use of safety devices 8. Include patient/ patient phlebotomy services representative in decisions related to safety [...] hygiene technique. 7. Identify and instruct patient/patient phlebotomy services representative in use of appropriate isolation precautionsfor identified infection/symptoms. 8. Provide and discuss with patient/patient phlebotomy services representative on educational MDRO sheet. 9. Encourage and monitor nutritional status daily and consult bait maker if indicated. 10. Implement neutropenic guidelines as needed. Outcome: Progressing Note: Evaluation of progress towards goal: No s/s of infection at this time Problem: Knowledge Deficit Goal: Patient/patient phlebotomy services representative demonstrates understanding of disease process, [...] be free from fall Description: Interventions: 1. [place] to environment 2. Hourly rounds addressing the [...] non-skid footwear 11. Teach patient and patient phlebotomy services representative to maintain environment for safety [...] (cane, walker) within reach 19. Request patient phlebotomy services representative bring adaptive equipment/mobility aids from home or obtain and provide as needed 20. Consult pharmacy regarding effects of med's affecting mobility, cognition, and alternatives 21. Obtain physician order for PT if risk factors associated with mobility are present 22. Obtain physician order for OT as appropriate 23. Utilize diversional activities 24. Educate patient and patient phlebotomy services representative how to maintain a safe environment during visitationtimes (notify nurse prior to leaving bedside) 25. Consider appropriateness of medical or non-medical record administrator 26. Set up voiding schedule as appropriate (every 2 hours) Outcome: Progressing Note: Evaluation of progress towards goal: pt free from fall at this time Problem: Knowledge Deficit Goal: Patient/patient phlebotomy services representative demonstrates understanding of disease process, [...] alert and oriented to person and age [facility]08-07-2025 Progress note* Situational Awareness - Gary Coronado MD - 06/20/2025 5:36 PM EDT [facility] Transfer Accept Note I have received a request for transfer of primary service for this patient from the neurology team care of neurology attending, clinical handoff received from Neurology resident. [facility] will assume careas primary team of this patient 7:00 a.m. 06/21/2025. [facility] Work Phone: [phone] Plan of care note* Plan of Care [...] also shows no change in renal function. [facility]08-07-2025 Consult note* Richa Beyer MD - 06/20/2025 1:56 PM EDTAssociated Order(s): IP CONSULT TO PHYSICAL MEDICINE REHAB Images from the original note were not included. PHYSICAL MEDICINE AND REHABILITATION CONSULT Date of Admission: 06/17/2025 1:38 PM Referring Physician: Mirian Carranza MD PCP: Yanique Mcneill APRN-AVELINA Chief Compliant: Principal Problem: CVA (cerebral vascular accident) ([facility]) Reason for Consultation: Rehabilitation Candidacy and Rehab Superintendent Institution Physicians/Services Consulting Providers Provider Service Specialty MD [...] given to the patient and transferred to [facility]. CT perfusion study showed deficit in [...] Past Medical History: Diagnosis Date Atrial fibrillation ([facility]) BPH (benign prostatic hyperplasia) Broken nose CVA (cerebral vascular accident) ([facility]) 06/17/2025 Diabetes ([facility]) Epistaxis Hypertension Hyponatremia secondary [...] End: 06:30 06/20/2025 This is a standard [facility] EEG monitoring reportusing scalp and ear electrodes [...] or primary neurological disorders. Yaquelin Esparza MD Senior Industrial Engineer Neurology/Neurophysiology [facility] Recent Results (from [...] Tubes. Procedure Abnormality Status --------- ------ PST TOP[[id number]] Final result Please view results for these [...] Assessment/Plan Principal Problem: CVA (cerebral vascular accident) ([facility]) MRI is negative for ischemia Debility [...] you for the referral. Richa Beyer MD [facility] Work Phone: [phone]) 393-967208-07-2025 Progress note* Discharge Planning Note - Rohini Mcintyre RN - 06/20/2025 12:33 PM EDT DISCHARGE PLANNING NOTE Pt will need updated PT/OT notes sent to [facility]. When pt/ot worked w him yesterday they rec SNF, but he was much less alert. Pt doing better today. Therapy will work w him tomorrow morning 06/21to see if IPR appropriate. Barriers: IPR accept, pt/ot to see, precert. Rohini Mcintyre RN [facility]08-07-2025 Consult note* Maisha Vergara MD - 06/20/2025 12:19 PM EDT Images from the original note were not included. NEPHROLOGY CONSULT NOTE Date of Admission: 06/17/2025 1:38 PM Reason for Consult: Hyponatremia Referring Physician: Rcoio Davis MD PCP: Yanique Mcneill APRN-AVELINA History [...] by mouth in the morning. Taking coenzyme J75-amfrlib E 100-5 mg-unit capsule Take 100 mg [...] anticoagulation MAISHA VERGARA MD [facility] ANY QUESTIONS FEEL FREE TO CALL: 1. OFFICE [phone] 2. ANSWERING SERVICE:[phone] YOU CAN CONTACT ME THROUGH [employer] SECURE CHAT DURING THE DAYTIME HOURS, IF NO RESPONSE AFTER 5 MINUTES CALL THE ANSWERING SERVICE This note was created with the assistance of a speech-recognition program. Although the intention is to generate a document that actually reflects the content of the visit, no guarantees can be provided that every mistake has been identified and corrected by editing. [facility]08-07-2025 Progress note* Discharge Planning Note - Brianna Verduzco - 06/20/2025 10:36 AM EDT DISCHARGE PLANNING NOTE I received a voice mail from Franc at [facility] phone [phone], she says she has left a few messages for an update for patient. This is the only vm I have received. Sending an [employer] chat to Rohini / Vivienne / Mesha with information [facility]08-06-2025 Plan of care note* Plan of Care - Nicole Sparks RN - 06/19/2025 11:13 PM EDT Problem: Pain Goal: Patient goal is pain score less than 4, able to rest, and participant in treatment plan as appropriate Description: INTERVENTIONS: 1. Encourage patient or legal phlebotomy services representative to report early pain and [...] per policy 9. Teach patient or legal phlebotomy services representative interventions for comforting Outcome: Progressing [...] at the bedside 7. Instruct patient/ patient phlebotomy services representative about use of safety devices 8. Include patient/ patient phlebotomy services representative in decisions related to safety [...] hygiene technique. 7. Identify and instruct patient/patient phlebotomy services representative in use of appropriate isolation precautionsfor identified infection/symptoms. 8. Provide and discuss with patient/patient phlebotomy services representative on educational MDRO sheet. 9. Encourage and monitor nutritional status daily and consult bait maker if indicated. 10. Implement neutropenic guidelines as [...] supplement as ordered 13. Collaborate with clinical bait maker 14. Include patient/ patient's phlebotomy services representative in decisions related to nutrition [...] Score of =/> 25 or indicated by [facility] Assessment Goal: Patient should be free from fall Description: Interventions: 1. [place] to environment 2. Hourly rounds addressing the [...] non-skid footwear 11. Teach patient and patient phlebotomy services representative to maintain environment for safety [...] (cane, walker) within reach 19. Request patient phlebotomy services representative bring adaptive equipment/mobility aids from home or obtain and provide as needed 20. Consult pharmacy regarding effects of med's affecting mobility, cognition, and alternatives 21. Obtain physician order for PT if risk factors associated with mobility are present 22. Obtain physician order for OT as appropriate 23. Utilize diversional activities 24. Educate patient and patient phlebotomy services representative how to maintain a safe environment during visitationtimes (notify nurse prior to leaving bedside) 25. Consider appropriateness of medical or non-medical record administrator 26. Set up voiding schedule as appropriate (every 2 hours) Outcome: Progressing Note: Evaluation of progress towards goal: pt free from fall at this time safety measures in place [facility]08-06-2025 Progress note* PT/OT/COMPUTER LAB ASSISTANT - Ayaan Campos, PT - 06/19/2025 2:49 [...] 6 Clicks: Basic Mobility Raw Score: 6 [facility] G Code Modifier: CN SwePASS score = 4/36 Pt is an 85 yo male admit 06/17 with L sided weakness and aphasia while at Coumadin clinic. NIHSS = 13. Pt with recent hospitalization 06/02 s/p fall while adjusting lawn chair with nasal bone fracture and persistent epistaxis. CT brain - no acute CTA - R P1/P2 occlusion. TNK given and transfer to [facility]. On arrival, NIHSS = 0 CT [...] Past Medical History: Diagnosis Date Atrial fibrillation ([facility]) BPH (benign prostatic hyperplasia) Broken nose CVA (cerebral vascular accident) ([facility]) 06/17/2025 Diabetes ([facility]) Epistaxis Hypertension Hyponatremia secondary to SIADH Hypothyroid Lumbar spondylosis TIA (transient ischemic attack) Past Surgical History: Procedure Laterality Date NECK SURGERY plate in neck per Modified [place] Level of Disability: Severe disability 0= No [...] tolerated Equipment: repositioning sling, IV, bed alarm Telemetry/Rock Dust Sprayer: Yes Oxygen Used: room air Other: high [...] with rails Stairs to Enter: 2 from passenger vessel chef Rails: Right Stairs in Home: 0 Bathroom Shower/Tub: Walk-in shower Bathroom Toilet: Standard Home Equipment: Rolling walker Other : Home info from EMR review of recent therapy eval at [facility] - pt not able to answer questionsthis date and no family present. 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 Principal Problem: CVA (cerebral vascular accident) ([facility]) [facility]08-06-2025 Progress note* PT/OT/COMPUTER LAB ASSISTANT - Veronica Rivera OTR/Krishan - 06/19/2025 2:48 PM EDT Occupational Therapy Evaluation Discharge Recommendations for Safe Patient Transition Discharge Recommendations: Post acute - moderate Post Acute Moderate Rehab Needs: Recommend moderate intensity rehab, Tolerate 1- 2 hrs of therapy 3-5 days/wk, Subacute or chronic functional impairment Current Impairments Informing Therapy Recommendation: Ambulation status/safety, Cognition, Fall risk, ADL status, Communication needs, Endurance level Modified [place] Level of Disability: Severe disability 0= No [...] lot Scoring Daily Activity Raw Score: 12 [facility] G Code Modifier: CL Modifed chip index; [...] Past Medical History: Diagnosis Date Atrial fibrillation ([facility]) BPH (benign prostatic hyperplasia) Broken nose CVA (cerebral vascular accident) ([facility]) 06/17/2025 Diabetes ([facility]) Epistaxis Hypertension Hyponatremia secondary [...] per early mobility guidelines. Equipment: telemetry, IV Telemetry/Rock Dust Sprayer: Yes Oxygen Used: room air Other: fall [...] problems. Principal Problem: CVA (cerebral vascular accident) ([facility]) [id number] Nurse Note* Deepali Mathew RN - 06/19/2025 10:55 AM EDT RN concerned as patient is extremely drowsy not following commands or speaking, RN called neuro resident Dr. Davis who states she thinks patient is just tired and will re assess later. [facility]08-06-2025 Progress note* Discharge Planning Note - Dawson [...] Home with home health services Facility/Service Name [facility] Case discussed in daily transition rounds and chart reviewed by CN. Barriers to discharge include PT/OT, PMR to see, Discharge Plan remains: Home with HHC vs IPR. [facility] will accept. [facility]- will need PT/OT notes as soon as they are in. CN will continue to follow and is available should any further needs arise. - Dawson Yost RN 06/19/25 8:40 AM [facility]08-05-2025 Plan of care note* Plan of Care - Leigha Eden RN - 06/18/2025 10:49 PM EDT Problem: Pain Goal: Patient goal is pain score less than 4, able to rest, and participant in treatment plan as appropriate Description: INTERVENTIONS: 1. Encourage patient or legal phlebotomy services representative to report early pain and [...] per policy 9. Teach patient or legal phlebotomy services representative interventions for comforting Outcome: Progressing [...] at the bedside 7. Instruct patient/ patient phlebotomy services representative about use of safety devices 8. Include patient/ patient phlebotomy services representative in decisions related to safety [...] hygiene technique. 7. Identify and instruct patient/patient phlebotomy services representative in use of appropriate isolation precautionsfor identified infection/symptoms. 8. Provide and discuss with patient/patient phlebotomy services representative on educational MDRO sheet. 9. Encourage and monitor nutritional status daily and consult bait maker if indicated. 10. Implement neutropenic guidelines as needed. Outcome: Progressing Note: Evaluation of progress towards goal: Pt should remain free from infection during this shift. Standard precautions used during care. Problem: Knowledge Deficit Goal: Patient/patient phlebotomy services representative demonstrates understanding of disease process, [...] Score of =/> 25 or indicated by [facility] Assessment Goal: Patient should be free from fall Description: Interventions: 1. [place] to environment 2. Hourly rounds addressing the [...] non-skid footwear 11. Teach patient and patient phlebotomy services representative to maintain environment for safety [...] (cane, walker) within reach 19. Request patient phlebotomy services representative bring adaptive equipment/mobility aids from home or obtain and provide as needed 20. Consult pharmacy regarding effects of med's affecting mobility, cognition, and alternatives 21. Obtain physician order for PT if risk factors associated with mobility are present 22. Obtain physician order for OT as appropriate 23. Utilize diversional activities 24. Educate patient and patient phlebotomy services representative how to maintain a safe environment during visitationtimes (notify nurse prior to leaving bedside) 25. Consider appropriateness of medical or non-medical record administrator 26. Set up voiding schedule as appropriate (every 2 hours) Outcome: Progressing Note: Evaluation of progress towards goal: Pt should remain free from fall during this shift. Bed in lowest position and locked, side rails up /, personal items and call light within reach, non skid socks applied, environment clear of hazards. [facility]08-05-2025 Nurse Note* Lauren Gaona RN - 06/18/2025 6:26 PM EDT Patient confused, on heparin drip, constantly trying to get out of bed, hitting, kicking and tryingto bite staff. Unable to follow direction. Dr Davis notified, says will order seroquel. Notified ofQT from EKG done 06/[address] [place] [facility]08-05-2025 Progress note* Discharge Planning Note - Martina Mckeon - 06/18/2025 1:25 PM EDT DISCHARGE PLANNING NOTE Referral sent to [facility] in [place] (P# ; F# ) [facility]08-05-2025 Progress note* Discharge Planning Note - Brianna Verduzco - 06/18/2025 1:04 PM EDT DISCHARGE PLANNING NOTE Referral sent to. [facility] in [place], [place] (P# ; F# ) [facility]08-05-2025 Progress note* Discharge Planning Note - Dawson [...] Acute rehab, Home with home health services Shuttle Repairer met with patient, introduced self, and explained role. Patient educated on safe discharge plan. Pt admitted 06/17/2025 with CVA (cerebral vascular accident) ([facility]) [I63.9] per chart review. Consults: Neurology Discharge Barriers per Daily Transition Rounds and chart review: PT/OT, s/p TNK- bedrest, MRi, echo. 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 Caregiver's personal limitations include Patient's feels she [...] vs acute rehab. PCP: TANYA Lozano Pharmacy: [facility] PCP and pharmacy confirmed with patient. CN offered to assist with follow up appointment arrangements; . TANYA Lozano added to Follow Up Providers for Summary of Care communication. Per patient self-report: Drug use: denies Smoking: denies ETOH Use: rarely Current discharge plan is: Home with [facility] vs acute rehab pending PT/OT eval. CN spoke with patient'swife she has used [facility] health in past. Tasked to send referrals to [facility] and to [facility]. Services Requested: Services Requested Patient expects to [...] Evaluation of progress towards goal: Home with [facility] Autogenerated Goal Will continue to follow as plan of care develops. CN discussed benefits and importance of medication compliance and follow ups. Please feel free to reach out for any discharge planning questions. - Dawson Yost RN 06/18/25 12:24 PM [facility]08-05-2025 Progress note* PT/OT/COMPUTER LAB ASSISTANT - Mofwan Sierra [facility]- COMPUTER LAB ASSISTANT - 06/18/2025 10:35 AM EDT Speech Therapy Evaluation Bedside Swallow/Feeding Evaluation Speech & Language Cognitive Evaluation Discharge Recommendations for Safe Patient Transition COMPUTER LAB ASSISTANT Post Discharge Therapy Recommendations: Continue ST services [...] decline resulting from CVA. Prognosis Services: Skilled COMPUTER LAB ASSISTANT services to address above deficits Prognosis/Potential: Good Considerations: Age, Cognition Discharge Recommendations for Safe Patient Transition COMPUTER LAB ASSISTANT Post Discharge Therapy Recommendations: Continue ST services [...] should be further evaluated. Prognosis Services: Skilled COMPUTER LAB ASSISTANT services to address the above deficits Prognosis/Potential: [...] Dysphagia Problem: Swallowing Dates: Start: 06/18/25 Disciplines: COMPUTER LAB ASSISTANT Goal: STG: Patient will complete safety strategies independently during PO intake 90% of the time Dates: Start: 06/18/25 Expected End: 07/22/25 Disciplines: COMPUTER LAB ASSISTANT Template: ST - Rehab Speech Problem: Auditory Comprehension Dates: Start: 06/18/25 Disciplines: COMPUTER LAB ASSISTANT Goal: LTG: Patient will comprehend communication related to basic medical and social needs and utilize compensatory strategies to maintain safety in a functional living environment Dates: Start: 06/18/25 Expected End: 07/22/25 Disciplines: COMPUTER LAB ASSISTANT Goal: STG: Patient will answer simple yes/no questions with 90% accuracy with minimal cueing. Dates: Start: 06/18/25 Expected End: 07/22/25 Disciplines: COMPUTER LAB ASSISTANT Goal: STG: Patient will answer complex yes/no questions with 90% accuracy with minimal cueing Dates: Start: 06/18/25 Expected End: 07/22/25 Disciplines: COMPUTER LAB ASSISTANT Problem: Verbal Expression Dates: Start: 06/18/25 Disciplines: COMPUTER LAB ASSISTANT Goal: LTG: Patient will utilize compensatory strategies to communicate wants and needs effectively to different conversational partners, maintain safety and participate socially in a functional living environment Dates: Start: 06/18/25 Expected End: 07/22/25 Disciplines: COMPUTER LAB ASSISTANT Goal: STG: Patient will complete simple to complex divergent and convergent naming tasks with 90% accuracy with minimal cueing to improve thought organization Dates: Start: 06/18/25 Expected End: 07/22/25 Disciplines: COMPUTER LAB ASSISTANT Goal: STG: Patient will use word retrieval strategies during structured interactions to improve functional communication during activities of daily living with 90% accuracy with minimal cueing Dates: Start: 06/18/25 Expected End: 07/22/25 Disciplines: COMPUTER LAB ASSISTANT Speech Therapy Care Plan (Resolved) There are no resolved problems. Principal Problem: CVA (cerebral vascular accident) ([facility]) [facility]08-05-2025 Progress note* PT/OT/COMPUTER LAB ASSISTANT - ALVARO Chino/Krishan - 06/18/2025 7:37 AM EDT Occupational Therapy OT Type of Visit: Medical deferral Reason For Medical Deferral: Activity limitations Activity Limitations: Strict bedrest (Per TNK protocol. Will continue to follow.) [facility]08-05-2025 Progress note* PT/OT/COMPUTER LAB ASSISTANT - Ayaan Campos PT - 06/18/2025 7:28 AM EDT Physical Therapy PT Type of Visit: Medical deferral (strict bedrest s/p TNK per protocol) Reason For Medical Deferral: Activity limitations Activity Limitations: Strict bedrest Will check back as appropriate. [facility]08-05-2025 Plan of care note* Plan of Care - Lin Rhodes RN - 06/18/2025 7:14 AM EDT Problem: Pain Goal: Patient goal is pain score less than 4, able to rest, and participant in treatment plan as appropriate Description: INTERVENTIONS: 1. Encourage patient or legal phlebotomy services representative to report early pain and [...] per policy 9. Teach patient or legal phlebotomy services representative interventions for comforting Outcome: Progressing [...] at the bedside 7. Instruct patient/ patient phlebotomy services representative about use of safety devices 8. Include patient/ patient phlebotomy services representative in decisions related to safety [...] hygiene technique. 7. Identify and instruct patient/patient phlebotomy services representative in use of appropriate isolation precautionsfor identified infection/symptoms. 8. Provide and discuss with patient/patient phlebotomy services representative on educational MDRO sheet. 9. Encourage and monitor nutritional status daily and consult bait maker if indicated. 10. Implement neutropenic guidelines as [...] be free from fall Description: Interventions: 1. [place] to environment 2. Hourly rounds addressing the [...] non-skid footwear 11. Teach patient and patient phlebotomy services representative to maintain environment for safety [...] (cane, walker) within reach 19. Request patient phlebotomy services representative bring adaptive equipment/mobility aids from home or obtain and provide as needed 20. Consult pharmacy regarding effects of med's affecting mobility, cognition, and alternatives 21. Obtain physician order for PT if risk factors associated with mobility are present 22. Obtain physician order for OT as appropriate 23. Utilize diversional activities 24. Educate patient and patient phlebotomy services representative how to maintain a safe environment during visitationtimes (notify nurse prior to leaving bedside) 25. Consider appropriateness of medical or non-medical record administrator 26. Set up voiding schedule as appropriate (every 2 hours) Outcome: Progressing Note: Evaluation of progress towards goal: Fall risk assessment preformed and safety measures in place. Education given to family/patient. Will continue to monitor. [facility]08-04-2025 Plan of care note* Plan of Care - Rich Nelson RN - 06/17/2025 7:23 PM EDT Problem: Pain Goal: Patient goal is pain score less than 4, able to rest, and participant in treatment plan as appropriate Description: INTERVENTIONS: 1. Encourage patient or legal phlebotomy services representative to report early pain and [...] per policy 9. Teach patient or legal phlebotomy services representative interventions for comforting Outcome: Progressing [...] at the bedside 7. Instruct patient/ patient phlebotomy services representative about use of safety devices 8. Include patient/ patient phlebotomy services representative in decisions related to safety [...] hygiene technique. 7. Identify and instruct patient/patient phlebotomy services representative in use of appropriate isolation precautionsfor identified infection/symptoms. 8. Provide and discuss with patient/patient phlebotomy services representative on educational MDRO sheet. 9. Encourage and monitor nutritional status daily and consult bait maker if indicated. 10. Implement neutropenic guidelines as needed. Outcome: Progressing Note: Evaluation of progress towards goal: Patient remains free from signs of infection at this time. Will continue to monitor. Problem: Knowledge Deficit Goal: Patient/patient phlebotomy services representative demonstrates understanding of disease process, [...] be free from fall Description: Interventions: 1. [place] to environment 2. Hourly rounds addressing the [...] non-skid footwear 11. Teach patient and patient phlebotomy services representative to maintain environment for safety [...] (cane, walker) within reach 19. Request patient phlebotomy services representative bring adaptive equipment/mobility aids from home or obtain and provide as needed 20. Consult pharmacy regarding effects of med's affecting mobility, cognition, and alternatives 21. Obtain physician order for PT if risk factors associated with mobility are present 22. Obtain physician order for OT as appropriate 23. Utilize diversional activities 24. Educate patient and patient phlebotomy services representative how to maintain a safe environment during visitationtimes (notify nurse prior to leaving bedside) 25. Consider appropriateness of medical or non-medical record administrator 26. Set up voiding schedule as appropriate (every 2 hours) Outcome: Progressing Note: Evaluation of progress towards goal: Fall risk assessment preformed and safety measures in place. Education given to family/patient. Will continue to monitor. Additional Comments: [facility] [employer] [id number] NotePatient Education Nephrology Hyponatremia Hyponatremia is when [...] Follow these instructions at home: ??? Take hysl-mpg-cbvlkhs and prescription medicines only as told by [...] provider. Document Revised: 05/11/2022 Document Reviewed: 05/11/2022 [employer] Patient Education ? 2023 [employer] 06-05-2025 History of Present illness Narrative* Flip Dubose RN - 06/05/2025 7:02 PM EDT Pt discharge- pt taken downstairs by wheelchair by son and by car [facility] . Son givenmed s, discharge instructions . Questions answered * Flip Dubose RN - 06/05/2025 5:58 PM EDT Pt status- neuro GLASS TECHNICIAN/INSTALLER Nicole Lencho called me in MICU few hrs ago. . Nicole spoke with Gladys , Kishore by phone. . Kishore is adament, despite [place] mild confusion, that she and her son want to drive Alexx back home to [place] to care for him at home tonight [...] 147 See Reflexed IPF Result Warfarin dose CUSTOMER QUALITY ENGINEER: 5 mg MWF and 2.5 mg all [...] Will continue to follow. Starr Jackman PharmD [facility] 06/05/2025 11:23 AM * Venessa Najera, PT - 06/05/2025 10:32 AM EDT Physical Therapy Facility/Department[facility] Initial Evaluation Patient Name: [...] within reach, Gait belt, Left in chair [facility] Basic Mobility - Inpatient How much help [...] 3-5 steps with a railing?: A Little [facility] Raw Score : 22 [facility] Inpatient T-Scale Score : 53.28 Mobility Inpatient [...] Level of Assist for Transfers: Independent Active Used Car [employer]: Yes Mode of Transportation: Truck Occupation: Retired [...] Deann Carter MD Internal Medicine Resident, PGY-2 [place], [place] 06/05/2025,10:28 AM Attending Physician Statement I [...] [facility] after a fall which resulted in nasal bone fracture. Patient initially presented to [facility] yesterday and was treated with Afrin and nasal pressure, patient was discharged home with ENT follow-up. When patient returned home he blew his nose and resulted in brisk bleeding from the left nare prompting him to return to the ER yesterday evening. He had bilateral nasal packing with Rhino Rocket's placed and was transferred to [facility] evaluation. Patient was seen by [...] this chart was generated using voice recognition [employer] dictation software. Although every effort was made to ensure the accuracy of this automated bumper straightener, some errors in bumper straightener may have occurred. * Geo Rehman [facility] - 06/04/2025 3:32 PM EDT Pharmacy Note Warfarin Consult follow-up Recent Labs 06/04/25 1423 INR 1.8 Recent Labs 06/02/25 1308 06/03/25 0618 HGB 12.3* 12.3* HCT 36.5* 35.2* PLT 147 See Reflexed IPF Result Warfarin dose CUSTOMER QUALITY ENGINEER: 5 mg MWF and 2.5 mg all [...] MIRELES MD Pediatric Otolaryngology-Head and Neck Surgery [facility] Otolaryngology group Office ph# [phone] Also available in cWyze * Rowena Duong, [facility] - 06/03/2025 11:31 AM EDT Pharmacy Note [...] Rowena Duong PharmD 06/03/2025 11:30 AM * Floridalma DO Beto - 06/03/2025 8:19 AM EDT Images from the original note were not included. [facility] Office: [phone] Viktor Monet DO, Jermaine Gustafson DO, Brigida [...] Valerie Trivedi CNP, Keren Gutierrez CNP, Beto Guzman, GRAPHIC ARTS TECHNICIAN, Kemi Hdz, CRISTA, Janelle Luna, GRAPHIC ARTS TECHNICIAN, Celena Johnson, GRAPHIC ARTS TECHNICIAN, Annia Rogers, GRAPHIC ARTS TECHNICIAN, Christina Cuevas GRAPHIC ARTS TECHNICIAN, RAMÓN MeiC, Adore Cueto, GRAPHIC ARTS TECHNICIAN, Emily Chiang, GRAPHIC ARTS TECHNICIAN, Maria Elena De La Torre, GRAPHIC ARTS TECHNICIAN, Venessa Mitchell, GRAPHIC ARTS TECHNICIAN, Rush Peters PALisaC, Rachel Nascimento PALisaC, Lorna Salazar, GRAPHIC ARTS TECHNICIAN, Edwina Cole, CELINA, Alex Castillo CNP, Leelee Easley CNP [facility] IN-PATIENT SERVICE [facility] Progress Note 06/03/2025 8:19 AM Name: Dariel Zabala Acct: [id number] Room: 0505/0505-01 Day: 1 Admit Date: 06/02/2025 10:01 AM [...] hypertension, type2 diabetes, SIADH initially presented to [place] emergency department for nosebleeding after mechanical fall out of a chair. CT scan reportedly showed nasal bone fracture. He was transferred to [place] for ENT evaluation. ENT deflated nasal packings [...] F (36.7 C) Recent Labs 06/02/25 1348 06/02/25161206/02/25195506/03/25 0746 POCGLU 110 109 127* 117* I/O [...] 9.0 Recent Labs 06/02/25 1348 06/02/25 1613 06/02/25195506/03/25 0746 POCGLU 110 109 127* 117* ABG:No results found for: POCPH , PHART , PH , POCPCO2 , BVX4FYP , PCO2 , POCPO2 , PO2ART , PO2 , POCHCO3 , DOK9BVW , HCO3 , NBEA , PBEA , BEART , BE , THGBART , THB , AYG2VAF , UBIH7WMJ , O1ITUBFE , O2SAT , FIO2 No results found [...] DAIGLE MD Pediatric Otolaryngology-Head and Neck Surgery [facility] Otolaryngology group Office ph# [phone] Also available in cWyze * Juju Garcia Bacilio - 06/02/2025 2:42 PM EDT Pharmacy Note [...] follow. Juju Garcia, [place] 06/02/2025 2:31 PM * Leigha Avilez RN - 06/02/2025 12:40 PM EDT ENT at bedside, removed air from rhinorockets. Order received to inflate and page him if bleeding occurs. * Noemí Sotomayor RN - 06/02/2025 10:44 AM EDT Pt arrived from [facility] via [facility]. Pt A&Ox4, admission database complete. Mediations reconciled. Pt put on telemetry and continuous pulse ox. Vitals stable. Bilat rhino rockets in place. No active epistaxis at this time. Primary team made aware of arrival. Shuttle Repairer called pt's to make her aware if the transfer, no answer left message. documented in this encounterBon [facility] Hospital course Narrative* Pepito Grant MD - 06/05/2025 3:29 PM EDT Images from the original note were not included. [facility] Department of Internal Medicine - Critical Care Service INPATIENT DISCHARGE SUMMARY PATIENT IDENTIFICATION: NAME: Dariel Zabala : 1940 Acct: [id number] Admit Date: 06/02/2025 Discharge date: No discharge [...] in nasal bone fracture. [facility] and was treated with Afrin and nasal pressure, patient wasdischarged home with ENT follow-up. When patient returned home he blew his nose and resulted in brisk bleeding from the left nare prompting him to return to the ER yesterday evening. He had bilateralnasal packing with Rhino Rocket's placed and was transferred to [facility] for ENT evaluation. Patient was seen [...] 1 weeks with PCP, in 1 weeks distribution accounting clerk Time Spent on discharge is more than 15 minutes in the examination, evaluation, counseling and review of medications and discharge plan. Pepito Grant MD Internal Medicine Resident Critical Care Service Cosigned by Flaco Ren MD at 06/05/2025 5:16 PM EDT documented in this encounterBon [facility]07-[facility]-2025 Hospital Discharge instructions* Discharge Instructions* Pepito Grant [...] 2-3 Please follow-up with your PCP and distribution accounting clerk (kidney doctor )for continued care Please go to the nearest ER if you have worsening of current symptoms or started experiencing new symptoms like shortness of breath, chest pain, palpitations, dizziness, loss of consciousness, any bleed from the nose for further evaluation management documented in this encounterBon [facility]07-07-2025 NoteNurse Consultation Note Reason for Visit patient [...] 03/31/2015 Recorded influenza virus vaccine, inactivated 08/02/2014 RecordedBarney [facility]06-26-2025 NotePatient Education Cardiovascular Atrial Fibrillation [...] these instructions at home: Medicines ??? Take xdhu-koz-iojxhve and prescription medicines only as told by [...] provider. Document Revised: 07/20/2023 Document Reviewed: 07/20/2023 [employer] Patient Education ? 2023 [employer] [place]. Caregiving Fall Prevention in the Home, Adult Falls can cause injuries and can happen to people of all ag (more content not included)...[facility]02-17-[facility]25 NoteNurse Consultation Note Reason for [...] 03/31/2015 Recorded influenza virus vaccine, inactivated 08/02/2014 RecordedBarney [facility] Center02-10-2025 NotePatient Education Cardiovascular Atrial Fibrillation [...] signals of the heart. ??? An ambulatory quality assurance monitor body to record your heart's activity for a [...] the main warning s (more content not included)...[facility] 11-28-2024 History of Present illness Narrative* Jose L Chow, CHRISTOPHER - 11/28/2024 1:00 PM EST Images from the original note were not included. HISTORY OF PRESENT ILLNESS: Dariel Zabala is an 84 y.o. @ male. 1ST PO LT CTR 11/19/24 (9 DAYS) @ [facility] [place] ([place]). PAIN DIFFUSE IN [...] for requiring urgent evaluation. Jose L Chow APRN-GRAPHIC ARTS TECHNICIAN documented in this encounterCedar County Memorial [id number] History of Present illness Narrative* Emiliano Escamilla MD - 11/26/2024 10:30 AM EST Images from the original note were not included. Subjective Patient ID: Dariel Zabala is a 84 y.o. male who presents for Ear Problem (Hearing aid battery in ear.) Pt seen in [facility] ED last Tuesday and DARNELL battery [...] NECK SURGERY TRIGGER FINGER RELEASE Right 03/26/2024 [facility] [place] ([place]) No Known Allergies Current Outpatient Medications [...] NOSTRIL ONCE DAILY AT BEDTIME [DISCONTINUED] HYDROcodone-acetaminophen (Lewis[place]) 5-325 MG tablet [DISCONTINUED] tiZANidine (Zanaflex) 4 [...] dementia. Dr Garcia notified. documented in this encounterCedar County Memorial [id number] NoteProgress Note-Physician Patient: DARIEL ZABALA Age: 84 years Sex: Male : 1940 Associated Diagnoses: None Author: Carmine COHN, Chau Pineda Postoperative Information Postoperative disposition: Postoperative disposition: To PACU. Optimetrix number: Optimetrix number [id number]. Anesthetic utilized: General. Health Status Allergies: Allergic [...] Discharge when meets criteria ( To home ).[facility]S Medical CenterComment on above:Result Comment: Electronically Signed By: Chau Lou MD\.br\Date and Time Signed: 11/19/24 15:19 EST 11-19-2024 Evaluation + Plan noteExtracted from: Title:ANES Post-operative Note---General Author: Chau Lou MD Date:11/19/24 Plan Transfer/Discharge: Transfer/Discharge Discharge when meets criteria ( To home ). Extracted from: Title:ANES Pre-operative Note 2022 Author:Chau Goode Date:11/19/24 Plan [place] Society of Anesthesiologists (ASA) physical status classification: Class III. Anesthetic Preoperative Plan: Anesthesia General. Future Appointments Appointment Date:12/12/2024 10:15:00 AM Scheduled Provider:Dixno Dubose PA-C [facility] Type:Cardiology Follow Up (FT) Appointment Date:05/02/2025 08:00:00 AM Scheduled Provider: Location:[facility] Appointment Type:FM Medicare Wellness Subsequent Future Scheduled Tests Laboratory* Basic Metabolic Panel 11/13/24 [facility] 01-06-2025 NotePatient Education - Text [place], [place] [facility] CARPAL TUNNEL RELEASE INSTRUCTIONS [...] Patient Signature Axel Hernández, DO [facility] [address] [place] [address] Reviewed: 04-22[facility]01-06-2025 NoteProgress Note-Physician Patient: DARIEL ZABALA [...] daily, # 90 tab(s), Refills(s) 0, [id number] 178, cm, 06/11/24 12:53:00 EDT, Height/Length Dosing, 82, kg, 06/11/2412:56:00 EDT, Weight Dosing Sodium Chloride 1000 mg oral tablet, soluble: See Instructions, 30 tab(s), Refill(s) 0, Take one tablet daily, [id number], 178.6, cm, 11/01/24 9:21:00 EST, Height/Length Dosing, 81.3, kg, 11/01/24 9:21:00 EST, Weight Dosing Synthroid 25 mcg(0.025 mg) Tab: See Instructions, TAKE 1 TABLET DAILY ON AN EMPTY STOMACH, # 3 tab(s), Refills(s) 0, [id number], 178, cm, 08/07/24 10:59:00 EDT, Height/Length Dosing, 78.2, kg, 08/07/24 10:59:00 EDT, Weight Dosing atenolol 25 mg Tab: See Instructions, take 1/2 tab daily, # 90 tab(s), Refills(s) 1, Pharmacy: [facility], 178, cm, 09/10/24 13:01:00 EDT, Height/Length Dosing, 80.1, kg, 09/10/24 13:01:00 EDT, Weight Dosing finasteride 5 mg Tab: 5 mg = 1 tab(s), Oral, Daily, # 90 tab(s), Refills(s) 1, [id number], 178.6, cm, 11/01/24 9:21:00 EST, Height/Length Dosing, 81.3, kg, 11/01/24 9:21:00 EST, Weight Dosing fluticasone Nasal 0.05 mg/inh [place]: See Instructions, 48 mL, Refill(s) 1, USE 1 SPRAY IN EACH NOSTRIL TWICE A DAY, [id number], 178, cm, 08/28/24 14:50:00 EDT, Height/Length Dosing, 82.2, kg, 08/28/24 14:50:00 EDT, Weight Dosing gabapentin 300 mg Cap: 300 mg = 1 cap(s), Oral, Daily, # 90 cap(s), Refills(s) 1, Pharmacy: [facility], 178, cm, 07/03/24 10:05:00 EDT, Height/Length Dosing, 80.8, kg, 07/03/2410:05:00 EDT, Weight Dosing glimepiride 2 mg Tab: See Instructions, TAKE 1 TABLET DAILY, # 3 tab(s), Refills(s) 0, Pharmacy: [facility], 178, cm, 08/07/24 10:59:00 EDT, Height/Length Dosing, 78.2, kg, 08/07/24 10:59:00 EDT, Weight Dosing omeprazole 40 mg Cap-DR: 40 mg = 1 cap(s), Oral, Daily, # 90 cap(s), Refills(s) 1, Pharmacy: [facility], 178, cm, 08/28/24 14:50:00 EDT, Height/Length Dosing, 82.2, kg, 08/28/24 14:50:00 EDT, Weight Dosing pravastatin 40 mg Tab: 40 mg = 1 tab(s), Oral, Daily, # 90 tab(s), Refills(s) 3, Pharmacy: [facility], 178, cm, 09/10/24 13:01:00 EDT, Height/Length Dosing, 80.1, kg, 09/10/24 13:01:00 EDT, Weight Dosing sildenafil 100 mg Tab: 100 mg = 1 tab(s), Oral, Daily, PRN for erectile dysfunction, 1 hour before sexual activity, # 5 tab(s), Refills(s) 0, Pharmacy: [facility], 178, cm, 07/03/24 10:05:00 EDT, Height/Length Dosing, 80.8, kg, 07/03/24 10:05:00 EDT,... tamsulosin 0.4 mg Cap: 0.4 mg = 1 cap(s), Oral, Daily, # 90 cap(s), Refills(s) 1, [facility], 178, cm, 09/10/24 13:01:00 EDT, Height/Length Dosing, 80.1, kg, 09/10/2413:01:00 EDT, Weight Dosing Documented Medications Documented CoQ10: See Instructions, PRN Prophylaxis, Refills(s) 0 D3: See Instructions, Oral Daily- patient states he takes 500 once a day, Refills(s) 0 Jantoven 5 mg oral tablet: 5 mg = 1 tab(s), Oral, Daily, Refills(s) 0, Blood Thinner (more content not included)...[facility]S Medical CenterComment on above:Result Comment: Electronically Signed By: Carmine COHN, Chau Pineda\.br\Date and Time Signed: 11/19/24 11:51 [id number] Hospital Discharge instructions Patient Education 11/12/2024 12:08:21 Hernández - Carpal Tunnel Release Instructions (Custom) (CUSTOM) [place], [place] [facility] CARPAL TUNNEL RELEASE INSTRUCTIONS [...] resolve. Patient SignatureMiclolis Hernández DO [facility] [address] [place] [phone] Reviewed: 04-2211/19/2024 13:10:26 Post Op Patient Instructions - FT (Custom) (CUSTOM) Follow Up Care 10/03/2024 14:28:43 With:GORDO Weller Address: [address] [place] [phone] (1) When:11/28/2024 13:00:00 Comments:Keep scheduled appointment. Call for any problems. [facility] 12-30-2024 NotePatient Education - Text [place], [place] [facility] CARPAL TUNNEL RELEASE INSTRUCTIONS [...] Patient Signature Axel Hernández, DO [facility] [address] [place] [address] Reviewed: 04-22[facility]12-30-2024 NoteNurse Consultation Note Reason for [...] Daily, 1 refills fluticasone Nasal 0.05 mg/inh [place], See Instructions, Self Directed gabapentin 300 mg [...] 03/31/2015 Recorded influenza virus vaccine, inactivated 08/02/2014 RecordedBarney Children'S Medical Center11-15-2024 History of Present illness Narrative* Shala Farrell MD - 09/28/2024 9:30 AM EST [facility] Patient: Darile Zabala [address], [address] , Sex: 1940, Male [place] [phone] Height: 180 cm Ref Phys: Hernández fax [...] Doub=doublet; Fasc=fasciculation; FFE=full for effort; Fib=fibrillation; Myokym=myokymia; [place]=myotonic potential; N,0=normal; NR=no response; Polyph=polyphasia; Pos=positive [sharp] [...] available for comparison. Shala Farrell M.D. Diplomate, [place] Board of Psychiatry and Neurology (neurology, epilepsy, sleep medicine) Diplomate, [place] Board of Clinical Neurophysiology Diplomate, [place] Board of Preventive Medicine (clinical informatics) . documented in this [facility]10-07-2024 Telephone encounter Note* Telephone Encounter - Miguel Moe - 08/20/2024 10:50 AM EDT LVM to RC in regard to BUE referral from Dr. Hernández--Approved to schedule--25.00 co-pay will be applied to toward OOP. [id number] Miscellaneous Notes* Telephone Encounter - Miguel Moe - 08/20/2024 10:50 AM EDT LVM to RC in regard to BUE referral from Dr. Hernández--Approved to schedule--25.00 co-pay will be applied to toward OOP. documented in this [facility]05-13-2024 Hospital Discharge instructions Patient Education [...] condition: Doing activities that require a strong health officer. Having rheumatoid arthritis, gout, or diabetes. Being [...] splint on your hand. General instructions Take cedh-tkr-sgxyrtt and prescription medicines only as told by [...] provider. Document Revised: 03/17/2020 Document Reviewed: 03/17/2020 [employer] Patient Education 2022 [employer]. Follow Up Care 03/01/2024 15:40:29 With:GORDO Weller Address: [address] [place] [id number] [facility] (1) When:04/04/2024 10:15:00 Comments:Keep scheduled appointment [facility]01-05-2024 Evaluation note* Encounter Date Diagnosis Assessment Notes [...] sodium level at upcoming appt in January [facility] Other 12-20-2023 Evaluation note* Encounter Date Diagnosis [...] dizziness symptoms would recommend f/u with manager integration as well. [facility] Other 11-17-2023 Evaluation note* Encounter Date Diagnosis Assessment Notes Treatment Notes Treatment Clinical Notes Sep, Type 2 diabetes mellitus (ICD-10 - E11.9) [facility] Other 11-17-2023 Miscellaneous Notes* Telephone Encounter - Venessa Riggins RN - 09/30/2023 12:29 PM EST Called patient back and reviewed plan from his call with Nurse Standards Analyst at 11:36 AM. See my note Patient already called his PCP as advise and waiting call back for scheduling. He was hospital discharged on 08/26 for cognitive problems and low sodium. He finished his pills for low sodium today. NOC closing was given [facility] as [...] have any questions, you can call Nurse sludge control operator back. * Telephone Encounter - Venessa Riggins RN - 09/30/2023 11:36 AM EST Patient calling with request for physician referral: Patient referred to nephrology and primary care Department. Patient denies any new or worsening symptoms of which a provider is not aware: Yes. Patient was discharged from [facility] on 08/26 for low sodium and said [facility]. He has non [facility] nephrology appt [...] appt center and then call dropped. My [place] and [employer] lost connection. NOC closing was given GO TO THE EMERGENCY ROOM OR CALL 911 IF: * You develop any new symptoms * Your condition worsens * You are concerned or anxious about your condition for any other reason. If you have any questions, you can call Nurse sludge control operator back. [facility]* Encounter Date Diagnosis Assessment Notes Treatment Notes Treatment Clinical Notes Sep, Hyponatremia (ICD-10 - E87.1) Recent sodium 136 at low end of normal, given significance of symptoms and recommendation of hospital for f/u will refer to nephrology patient requesting [place] Sep, Anticoagulant long-term use (ICD-10 - Z79.01) Follows with INR clinic through [facility]. Sep, Atrial fibrillation (ICD-10 - I48.91) Appears in NSR today, anticoagulated on Warfarin Sep, Hypothyroidism (ICD-10 - E03.9) Recent TFTs in normal range, clinically euthyroid, continue current dose of LT4 Sep, Type 2 diabetes mellitus (ICD-10 - E11.9) Recent a1c in good range at 5.6%, continue current dose of glimepiride. Sep, Immunization due (ICD-10 - Z23) [facility] Other 10-16-2023 Evaluation note* Encounter Date Diagnosis Assessment Notes Treatment Notes Treatment Clinical Notes Aug, Hyponatremia (ICD-10 - E87.1) [facility] Other 08-03-2023 Evaluation note* Encounter Date Diagnosis Assessment Notes Treatment Notes Treatment Clinical Notes Jun, Atrial fibrillation (ICD-10 - I48.91) Rate controlled, mild bradycardia but asymptomatic. Will continue current dose of atenolol. He is anticoagulated on Coumadin with goal INR 2-3, he is due for INR check. Will refer to coumadin clinic through [facility] Jun, Anticoagulant long-term use (ICD-10 - Z79.01) Jun, Hearing loss (ICD-10 - H91.90) Referral to local maintenance mechanic elevators Jun, Dermatitis (ICD-10 - L30.9) Can trial topical steroid PRN, discussed may be secondary to dry skin. Recommend daily use of lotion Jun, Hypothyroidism (ICD-10 - E03.9) Due for TFTs prior to next visit Jun, Type 2 diabetes mellitus (ICD-10 - E11.9) Due for a1c prior to next visit Jun, BPH (benign prostatic hyperplasia) (ICD-10 - N40.0) [facility] Other 08-03-2023 Reason for referral (narrative)* Reason Medication managemen t through [facility] - Coumadin management with INR goal 2-3 Diagnosis 1 Anticoagulant long-t erm use (Z79.01) Referral Organization [facility] Rodo Brown Referring Provider First Name Jada Referring Provider Last Name Rene Referring Provider Specialty [facility] Referred Organization [facility] [place] [address] [place],[address] Referred Provider Specialty Milvia felix Referral Priority Routine General Notes Gabrielle Reid 01/2023 01:34:29 PM >this is an order not a referral, clinical informed and will fax order over for standing order INR to [facility] Reason * FU 06/29 CALL he aring loss, issue with hearing aids Diagnosis 1 Hearing loss (H91.90 ) Referral Organization [facility] Rodo Brown Referring Provider First Name Jada Referring Provider Last Name Edgard Referring Provider Specialty [facility] [employer] Referred Organization [facility] Referred Address ,[place], [place],[address] Referred Provider Specialty Audiologists Referral Priority Routine General Notes Gabrielle Reid 01/2023 01:28:34 PM >referral received and faxed [facility] Other 04-27-2010 History of Past illness Narrative* Problem Noted Date Diagnosed Date Resolved Date Myalgia 03/10/2010 03/01/2011 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 and other lower urinary tract symptoms (LUTS) 08/11/2006 01/11/2013 Elevated prostate specific antigen (PSA) 03/07/2012 documented as of this encounter (statuses as of 09/30/2023) [facility] No data available for this section [facility] Future Appointments Appointment Date:03/08/2024 01:00:00 PM Scheduled Provider:Edwin Garcia MD Location:[facility] Appointment Type: Open Appointment Date:03/26/2024 01:45:00 PM Scheduled Provider: Location:[facility] Appointment Type:Surgery FT Appointment Date:05/01/2024 09:00:00 AM Scheduled Provider: Location:[facility] Appointment Type: Lab Draw Appointment Date:05/03/2024 08:00:00 AM Scheduled Provider: Location:[facility] Appointment Type: Medicare Wellness Subsequent Appointment Date:05/03/2024 09:00:00 AM Scheduled Provider:Edwin Garcia MD [facility] Type: Open Future Scheduled Tests Laboratory* PSA Screen, Total 02/02/24 * CBC w/ Auto Diff 3/21/24 * Comprehensive Metabolic Panel 02/02/24 * Lipid Panel 02/02/24 [facility] Future Appointments Appointment Date:05/01/2024 09:00:00 AM Scheduled Provider: Location:[facility] Appointment Type:FM Lab Draw Appointment Date:05/03/2024 08:00:00 AM Scheduled Provider: Location:[facility] Appointment Type: Medicare Wellness Subsequent Appointment Date:05/03/2024 09:00:00 AM Scheduled Provider:Edwin Garcia MD Location:[facility] Appointment Type: Open Future Scheduled Tests Laboratory* PSA Screen, Total 02/02/24 * CBC w/ Auto Diff 02/02/24 * Comprehensive Metabolic Panel 02/02/24 * Lipid Panel 02/02/24 [facility] Future Appointments Appointment Date:05/01/2024 09:00:00 AM Scheduled Provider: Location:[facility] Appointment Type: Lab Draw Appointment Date:05/03/2024 08:00:00 AM Scheduled Provider: Location:[facility] Appointment Type: Medicare Wellness Subsequent Appointment Date:05/03/2024 09:00:00 AM Scheduled Provider:Edwin Garcia MD Location:[facility] Appointment Type: Open Appointment Date:05/25/2024 01:00:00 PM Scheduled Provider:Kashif Barnett MD [facility] Type:Cardiology Follow Up (FT) Future Scheduled Tests Laboratory* PSA Screen, Total 02/02/24 * CBC w/ Auto Diff 02/02/24 * Comprehensive Metabolic Panel 02/02/24 * Lipid Panel 02/02/24 Radiology* Echo Transthoracic Complete 04/20/24 [facility] Future Appointments Appointment Date:05/03/2024 08:00:00 AM Scheduled Provider: Location:[facility] Appointment Type: Medicare Wellness Subsequent Appointment Date:05/03/2024 09:00:00 AM Scheduled Provider:Edwin Garcia MD Location:[facility] Appointment Type: Open Appointment Date:05/21/2024 10:00:00 AM Scheduled Provider: [facility] Type:CV Holter/Event (FT) Appointment Date:05/25/2024 01:00:00 PM Scheduled Provider:Kashif Barnett MD [facility] Type:Cardiology Follow Up (FT) [facility] Future Appointments Appointment Date:05/30/2024 03:45:00 PM Scheduled Provider:Kashif Barnett MD [facility] Type:Cardiology Follow Up (FT) Appointment Date:11/01/2024 09:15:00 AM Scheduled Provider:Edwin Garcia MD Location:[facility] Appointment Type: Open Appointment Date:05/02/2025 08:00:00 AM Scheduled Provider: Location:[facility] Appointment Type:FM Medicare Wellness Subsequent [facility] Future App[facility]ments Appointment Date:08/31/2024 01:00:00 PM Scheduled Provider:Kashif Barnett MD [facility] Type:Cardiology Follow Up (FT) Appointment Date:11/01/2024 09:15:00 AM Scheduled Provider:Edwin Garcia MD Location:[facility] Appointment Type: Open Appointment Date:05/02/2025 08:00:00 AM Scheduled Provider: Location:[facility] Appointment Type:FM Medicare Wellness Subsequent [facility] Future Appointments Appointment Date:11/01/2024 09:15:00 AM Scheduled Provider:Edwin Garcia MD Location:[facility] Appointment Type: Open Appointment Date:12/11/2024 01:00:00 PM Scheduled Provider:Dixon Dubose PA-C [facility] Type:Cardiology Follow Up (FT) Appointment Date:05/02/2025 08:00:00 AM Scheduled Provider: Location:[facility] Appointment Type:FM Medicare Wellness Subsequent [facility] Evaluation + Plan note Future Appointments Appointment Date:11/01/2024 09:15:00 AM Scheduled Provider:Edwin Garcia MD Location:[facility] Appointment Type:FM Open Appointment Date:11/19/2024 02:15:00 PM Scheduled Provider: Location:[facility] Appointment Type:Surgery FT Appointment Date:12/12/2024 10:15:00 AM Scheduled Provider:Dixon Dubose PA-C [facility] Type:Cardiology Follow Up (FT) Appointment Date:05/02/2025 08:00:00 AM Scheduled Provider: Location:[facility] Appointment Type:FM Medicare Wellness Subsequent [facility] Evaluation + Plan note Future Appointments Appointment Date:11/19/2024 02:15:00 PM Scheduled Provider: Location:[facility] Appointment Type:Surgery FT Appointment Date:12/12/2024 10:15:00 AM Scheduled Provider:Dixon Dubose PA-C [facility] Type:Cardiology Follow Up (FT) Appointment Date:05/02/2025 08:00:00 AM Scheduled Provider: Location:[facility] Appointment Type:FM Medicare Wellness Subsequent [facility] evaluation + Plan note Future Appointments Appointment Date:12/24/2024 01:15:00 PM Scheduled Provider:Edwin Garcia MD Location:[facility] Appointment Type: Open Appointment Date:05/02/2025 08:00:00 AM Scheduled Provider: Location:[facility] Appointment Type: Medicare Wellness Subsequent Diagnostic Tests Pending * Basic Metabolic Panel 12/17/24 Future Scheduled Tests Laboratory* Basic Metabolic Panel 11/13/24 [facility] Evaluation + Plan note Future Appointments Appointment Date:01/22/2025 10:15:00 AM Scheduled Provider:Edwin Garcia MD Location:[facility] Appointment Type: Open Appointment Date:05/02/2025 08:00:00 AM Scheduled Provider: Location:[facility] Appointment Type: Medicare Wellness Subsequent Future Scheduled Tests Laboratory* Basic Metabolic Panel 11/13/24 [facility] evaluation + Plan note Future Appointments Appointment Date:02/05/2025 01:30:00 PM Scheduled Provider:Edwin Garcia MD Location:[facility] Appointment Type: Open Appointment Date:05/02/2025 08:00:00 AM Scheduled Provider: Location:[facility] Appointment Type: Medicare Wellness Subsequent Future Scheduled Tests Laboratory* Basic Metabolic Panel 01/10/25 * Basic Metabolic Panel 11/13/24 [facility] evaluation + Plan note Future Appointments Appointment Date:05/02/2025 08:00:00 AM Scheduled Provider: Location:[facility] Appointment Type:FM Medicare Wellness Subsequent Future Scheduled Tests Laboratory* Basic Metabolic Panel 11/13/24 [facility] evaluation + Plan note Future Appointments Appointment Date:08/09/2025 10:40:00 AM Scheduled Provider:YANIQUE MCNEILL CNP Location:[facility] Appointment Type: Open Appointment Date:05/13/2026 08:00:00 AM Scheduled Provider: Location:[facility] Appointment Type:FM Medicare Wellness Subsequent Future Scheduled Tests Laboratory* Basic Metabolic Panel 11/13/24 [facility] evaluation noteNo [facility] [employer] Other evaluation note* Diagnosis Pain in both [...] Other postprocedural status documented in this encounter [facility]* Diagnosis Fracture of nasal bones, [...] and immunity disorders [facility] this [facility]* Diagnosis CVA (cerebral vascular accident) ([facility])- Primary Unspecified cerebral artery occlusion with cerebral infarction 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 ([facility]) [facility] this [facility] Narrative - Reported* Type Description Date Medical History type 2 diabetes Medical History hypothyroid Medical History Afib Surgical History multiple neck sx Surgical History tonsillectomy Surgical History adenoidectomy Surgical History MAU cataract Hospitalization History see above [facility] Other [employer] general Narrative - Reported* Type Description Date Medical History type 2 diabetes Medical History hypothyroid Medical History Afib Surgical History multiple neck sx Surgical History tonsillectomy Surgical History adenoidectomy Surgical History MAU cataract Hospitalization History see above Hospitalization History low [facility]2023 [facility] Other [employer] general Narrative - Reported* Type Description Date [...] 2 DM, generalized weakness hypomagnesiema, RADHA 11/13/23-11/15/23 [facility] Other Hospital Discharge instructions No data available for this section [facility] Discharge instructionsNot on file documented in this encounterNorwalk [facility]als[facility] Discharge instructionsAmbulatory Orders* Initiate Home Health Time [...] see your PCP in the [facility] Work Phone: Progress note No data available for this section [facility] for visit Narrative* Auth/Cert (Routine) Specialty Diagnoses / Procedures Referred By Contac t Referred To Contact Diagnoses Epistaxis Nasal fracture Fracture of nasal bones, initial encounter for closed fracture Beto Hedrick DO [address] [facility] [address] [place] [address] Phone: tel: fax: [facility] [address] [place] [address] Referral ID Status Reason Start Date Expiration Date Visits Re quested Visits Authorized [id number] 1 1 [facility] for visit Narrative* Auth/Cert Specialty Diagnoses / Procedures Referred By Contac t Referred To Contact Diagnoses CVA [address] [address] Referral ID Status Reason Start Date Expiration Date Visits Re quested Visits Authorized [id number] [address] [facility] Summary Purpose Family History No Family History Records Found Relationship Condition Age at Onset Recorded Date/T siri father Unknown family member Unknown mother Unknown Advance Directives No Advanced Directives Records Found Date Activated Date Inactivated Comments 06/02/2025 12:05 PM Date Activated Date Inactivated Comments 06/23/2025 10:31 AM Advance Directive Response Recorded Date/ Time Advance Directives No June 16 023 2:41pm Reason for Referral Reason * FU 09/28 follow up hospitalization for symptomatic hyponatremia, [facility] [place] [facility] Lara ph [phone], fax [phone] Diagnosis 1 Hyponatremia (E87.1) Referral Organization [facility] Rodo Brown Referring Provider First Name Jada Referring Provider Last Name Edgard Referring Provider Specialty [facility] Ref[facility] Referred Provider Romeo Lara Referred Address [address] [place], [place],[address] Referred Provider Specialty Internal Med icine Referral Priority Routine General Notes Gabrielle Reid 06/2023 01:35:25 PM > referral received and faxed Clinical Notes [facility] [place] Dr. Lara ph [phone], fax [phone] Reason hyponatremia, recent hospitalization [facility] for hyponatremia Diagnosis 1 Hyponatremia (E87.1) Referral Organization [facility] Family Rodo Brown Referring Provider First Name Jada Referring Provider Last Name Rene Referring Provider Specialty Family Medi cine Referred Organization [facility] Referred Address [address] [place], [place],[address] Referred Provider Specialty Nephrology Referral Priority Routine Chief Complaint and Reason for Visit Chief Complaint Admit Date Diverticulitis R/O Infarction July 19, 2025 6:22pm Reason for Visit Admit Date Abnormal urinary tract, radiological Sep 2024 6:22pm BPH w urinary obs/LUTS July [...] section and content) DATE CREATED AUTHOR 06/03/2020 [facility] DATE CREATED AUTHOR AUTHOR'S ORGANIZ ATION 05/03/2024 [facility] DATE CREATED AUTHOR AUTHOR'S ORGANIZ ATION 08/17/2024 [facility] DATE CREATED AUTHOR AUTHOR'S ORGANIZ ATION 11/02/2024 [facility] DATE CREATED AUTHOR AUTHOR'S ORGANIZ ATION 11/14/2024 [facility] DATE CREATED AUTHOR AUTHOR'S ORGANIZ ATION 11/24/2024 [facility] DATE CREATED AUTHOR AUTHOR'S ORGANIZ ATION 11/25/2024 [facility] DATE CREATED AUTHOR AUTHOR'S ORGANIZ ATION 11/29/2024 [facility] DATE CREATED AUTHOR AUTHOR'S ORGANIZ ATION 12/21/2024 [facility] DATE CREATED AUTHOR AUTHOR'S ORGANIZ ATION 01/02/2025 [facility] DATE CREATED AUTHOR AUTHOR'S ORGANIZ ATION 01/11/2025 [facility] DATE CREATED AUTHOR AUTHOR'S ORGANIZ ATION 01/27/2025 [facility] DATE CREATED AUTHOR AUTHOR'S ORGANIZ ATION 02/06/2025 [facility] DATE CREATED AUTHOR AUTHOR'S ORGANIZ ATION 02/07/2025 [facility] DATE CREATED AUTHOR AUTHOR'S ORGANIZ ATION 02/22/2025 [facility] DATE CREATED AUTHOR AUTHOR'S ORGANIZ ATION 05/24/2025 [facility] DATE CREATED AUTHOR AUTHOR'S ORGANIZ ATION 06/03/2025 [facility] DATE CREATED AUTHOR AUTHOR'S ORGANIZ ATION 06/08/2025 [facility] DATE CREATED AUTHOR AUTHOR'S ORGANIZ ATION 06/09/2025 [facility] DATE CREATED AUTHOR AUTHOR'S ORGANIZ ATION 06/09/2025 [facility] DATE CREATED AUTHOR AUTHOR'S ORGANIZ ATION 06/14/2025 [facility] DATE CREATED AUTHOR AUTHOR'S ORGANIZ ATION 06/15/2025 [facility] DATE CREATED AUTHOR AUTHOR'S ORGANIZ ATION 07/23/2025 [facility] DATE CREATED AUTHOR AUTHOR'S ORGANIZ ATION 08/02/2025 [facility] DATE CREATED AUTHOR AUTHOR'S ORGANIZ ATION 08/25/2025 [facility] DATE CREATED AUTHOR AUTHOR'S ORGANIZ ATION 08/27/2025 [facility] REASON FOR VISIT (unrecogniz [...] prosecute any alcohol or drug abuse patient.[facility] Patient Care team informatio n (unrecognized section and content) Coconut Candy Maker Relationship Specialty Start Date End Date Edwin Garcia MD PCP - General Family Medicine 02/03/24 Coconut Candy Maker Relationship Specialty Start Date End Date Edwin Garcia MD PCP - General Family Medicine 02/03/24 Coconut Candy Maker Relationship Specialty Start Date End Date Edwin Garcia MD PCP - General Family Medicine 02/03/24 Coconut Candy Maker Relationship Specialty Start Date End Date Edwin Garcia MD PCP - General Family Medicine 02/03/24 Coconut Candy Maker Relationship Specialty Start Date End Date Edwin Garcia MD PCP - General Family Medicine 02/03/24 Coconut Candy Maker Relationship Specialty Start Date End Date Edwin Garcia MD [address] [facility], [place] [address] PCP - General Family Medicine 11/26/24 Coconut Candy Maker Relationship Specialty Start Date End Date Edwin Garcia MD [address] [facility], [place] [address] PCP - General Family Medicine 11/26/24 Coconut Candy Maker Relationship Specialty Start Date End Date Edwin Garcia MD [address] [place] [address] PCP - General Family Medicine 11/26/24 Coconut Candy Maker Relationship Specialty Start Date End Date Edwin Garcia MD [address] [facility], [place] [address] PCP - General Family Medicine 11/26/24 Coconut Candy Maker Relationship Specialty Start Date End Date Jaden Maravilla, MENTALLY RETARDED TEACHER - GLASS TECHNICIAN/INSTALLER [address] [facility] PCP - General 06/05/25 Coconut Candy Maker Relationship Specialty Start Date End Date Yanique Mcneill, MENTALLY RETARDED TEACHER-GRAPHIC ARTS TECHNICIAN [address] [facility] [address] [place] [address] PCP - General Family Medicine 06/13/25 Coconut Candy Maker Relationship Specialty Start Date End Date Edwin Garcia MD [address] [place] [address] PCP - General Family Medicine 11/26/24 Team Status: Active Member Role Status Dates Yanique Mcneill [facility] Primary Care Provider Active Team Status: Active Member Role Status Dates Yanique Mcneill [facility] Primary Care Provider Active Start: July 19, 2025 Thalia Cervantes MD Admit Provider Active Start: S eptemblinda 2024 Thalia Cervantes MD Other Provider Active Start: S eptember 2024 Dev Archuleta DO Other Provider Active [...] Dela Cruz MD Other Provider Active Start: 2024 End: July 23, 2025 Chau Márquez MD [...] 2025 End: July 23, 2025 Preethi Mena NP-Kasey Other Provider Active Star t: July 19, 2025 End: July 23, 2025 Melissa Corbett [facility] Other Provider Active Sta rt: July 19, 2025 End: July 23, 2025 Ordered Prescriptions (unrec ognized section and content) Prescription Sig Dispense Quantity Refills Last Filled Start Date End Date urea (URE-NA) 15 g PACK packet Take 15 g by mouth daily 30 each 06/05/2025 urea (URE-NA) 15 g PACK packet [...] Indication: nasal packing 0621 (Given - Provider: eKlly Huerta RN)1309 (Given - Provider: Pat Nieves [...] Nieves RN - Reason: Order parameters not met)181 (Not Given - Provider: Pat Nieves RN [...] Flip Dubose, ERIN)1753 (Given - Provider: Flip Dubose RN)2026 (Given - Provider: Nancy Fox RN) 0206 (Given - Provider: Nancy Fox RN)0542 (Given - Provider: Nancy Fox, ERIN)1036 (Given - Provider: Flip Dubose RN)1528 (Not Given - Provider: Filp Dubose RN - Reason: Patient/family refused)1815 (Due)2215 [...] Nieves RN) 0947 (Given - Provider: Flip Dubsoe RN) 0841 (Given - Provider: Flip Dubose [...] anuric? No 1204 (Given - Provider: Flip Dubose, ERIN) urea (URE-NA) packet 15 g 15 g, [...] (New Bag - Provider: Adia Blandon, RN) 0248 (Stopped - Provider: Monico Kaiser, ERIN) PRN Medication Order 06/03/2025 06/04/2025 06/05/2025 0.9 [...] boluses or administration of glucagon, Starting on 06/02/25 at 1205, If blood glucose fails to [...] for injection by adding 1 mL of career specialist-supplied sterile diluent or sterile water for [...] volume of compatible solution (NS or D5W). 164 (Given - Provider: Pat Nieves RN) magnesium [...] (See Alternative - Provider: Adia Blandon RN) 075 (See Alternative - Provider: Flip Dubose RN) polyethylene glycol (GLYCOLAX) packet 17 g 17 g, Oral, DAILY PRN, Starting on Tue06/02/25 at 1205, Until Discontinued, Constipation, First line therapy for constipation potassium bicarb-citric acid (EFFER-K) effervescent tablet 40 mEq(Linked Group 4) 40 mEq, Oral, PRN, Starting on Tue06/02/25 at 1205, Until Discontinued, Per Potassium Replacement [...] Starting on Tue06/02/25 at 1205, Until Discontinued, at 100 mL/hr, [...] oral, 2 times daily, First dose on 06/22/25 at 2100, Indication: Nonvalvular Atrial Fibrillation (NVAF) [...] BP 109/93)1327 (Given - Provider: Debra Huggins RN)2112 (Not Given - Provider: Yonathan Joy RN - Reason: Order parameters not met - Comment: bp 129/75) 0501 (Not Given - Provider: Yonathan Joy RN - Reason: Order parameters not met - Comment: bp 137/63)1430 (Given - Provider: Debra Huggins RN)220 (Due) pantoprazole (PROTONIX) EC tablet 40 mg [...] juice. 0904 (Given - Provider: Lauren Gaona RN)2031 (Given - Provider: Yonathan Joy RN) 0831 (Given - Provider: Debra Huggins RN)2114 (Given - Provider: Yonathan Joy RN) 0857 [...] notify prescriber if INR greater than: 3.5 9295 (Given - Provider: Lauren Gaona RN) Continuous Medication Order 06/21/2025 06/22/2025 06/23/2025 heparin infusion 73111 units/500 mL in 0.45% NaCl (50 units/mL [...] 0928 (New Bag - Provider: Debra Huggins, RN)1328 (Stop Bag - Provider: Debra Huggins, RN) potassium chloride (K-TAB,KLOR-CON) CR tablet 20-60 [...] level 2.3 mg/dL or less, Starting on Tue06/22/25 at 1114, Administer over 6 hours via [...] BE BASED ON THE PRIMARY CLINICAL RECORDS. [facility]. provides no warranty or guarantee of the accuracy or completeness of information in this document.
--- NOTE | 2025-09-03 01:18 | XR_ITS ---
The [address] [address] Patient Name: INDIANA ZABALA MRN: [id number] date: 1940 Sex: M Assigned Patient Location: ER Current Patient Location: ER Accession/Order Number: [id number] Exam Date: 09/03/2025 01:28 Report Date: 09/03/2025 08:03 At the request of: ROBERT BERNAL MD Procedure: XR chest 1V XR chest 1V 09/03/2025 1:39 AM SIGNS AND SYMPTOMS: ^Altered mental status ^Y PROTOCOL: Frontal radiograph of the chest COMPARISON: 08/07/2025 FINDINGS: The trachea is midline. Atherosclerotic changes are noted in the thoracic aorta. The heart and mediastinal structures are within normal limits. The lung parenchyma is clear. A suspected skinfold is noted in the lateral aspect of the chest overlying the lateral aspect of the left upper and lower lobes. The bony thorax is intact. Anterior fusion hardware is noted in the cervical spine. Degenerative changes are noted in the shoulders. XR/XR chest 1V IMPRESSION: No acute cardiopulmonary pathology. Impression dictated by: Antelmo Sinha M.D. 09/03/2025 8:03 AM Dictation Location: [place] [address] Electronically authenticated by: [id number] Y Date: 09/03/2025 08:03
--- NOTE | 2025-09-03 01:18 | ECG_ITS ---
[facility] Test Date: 2025-09-03 Pat Name: INDIANA ZABALA Department: Room: - Gender: Male [employer]: : 1940 Requested By: 1030 Order Number: [id number] Reading MD: DAVIS SCHREIBER Measurements Intervals [place] Rate: 105 P: -42548 ND: -32868 QRS: 83 QRSD: 92 T: 43 QT: 332 QTc: 393 Interpretive Statements 78535 Atrial fibrillation with rapid ventricular response 8101 Low QRS voltage in limb leads 9140 abnormal rhythm ECG Compared to ECG 08/05/2025 13:58:50 Low QRS voltage now present ST (T wave) deviation no longer present Indeterminate axis no longer present Electronically Signed On 09-03-2025 17:12:40 EDT by DAVIS SCHREIBER
[2025-09-03 02:19] LABS: Glucose Urine UA NEGATIVE (NEGATIVE)
--- NOTE | 2025-09-03 02:19 | ED.GENADUL1 ---
HPI HPI - General Adult General Chief complaint: Altered Mental Status Stated complaint: AMS Time Seen by Provider: 09/03/25 01:04 Mode of arrival: ambulance Limitations: altered mental status History of Present Illness HPI narrative: 85-year-old male presented for altered mental status. He was transported here by paramedics and the patient was unable to provide us any history. Paramedics reported that his told them that he accesses him when his sodium is low. No further history is obtainable. Related Data Home Medications ?Medication ?Instructions ?Recorded ?Confirmed levothyroxine 25 mcg tablet 25 mcg PO QAM 08/21/23 08/05/25 pravastatin 40 mg tablet 40 mg PO DAILY 08/21/23 08/05/25 tamsulosin 0.4 mg capsule 0.4 mg PO DAILY 08/21/23 08/05/25 finasteride 5 mg tablet 5 mg PO DAILY 11/13/23 08/05/25 gabapentin 300 mg capsule 300 mg PO DAILY 08/13/24 08/05/25 atenolol 25 mg tablet 12.5 mg PO DAILY 06/13/25 08/05/25 apixaban 5 mg tablet (Eliquis) 5 mg PO Q12H 07/19/25 08/05/25 omeprazole 40 mg capsule,delayed 40 mg PO DAILY 07/30/25 08/05/25 release Previous Rx's ?Medication ?Instructions ?Recorded aspirin 81 mg tablet,delayed 81 mg PO QD 5 days #5 tabs 06/13/25 release meloxicam 7.5 mg tablet 7.5 mg PO DAILY PRN Pain #0 tabs 08/02/25 sitagliptin phosphate 100 mg 100 mg PO DAILY #30 tabs 08/02/25 tablet (Januvia) amoxicillin 500 mg-potassium 1 tab PO BID #14 tabs 08/09/25 clavulanate 125 mg tablet (Augmentin) calcium carbonate 500 mg (2.5 x 200 mg calcium (500 08/09/25 mg)) PO TID PRN Indigestion #0 tabs food supplemt, lactose-reduced 1 ea PO BID #0 mL 08/09/25 (Ensure Active Protein-Muscle oral liquid) magnesium oxide 500 mg PO DAILY #30 tabs 08/09/25 sennosides 8.6 mg-docusate sodium 2 tab PO QD #30 tabs 08/09/25 50 mg tablet sodium chloride 1,000 mg soluble 2,000 mg (2 x 1,000 mg) PO BID #0 08/09/25 tablet tabs Allergies Allergy/AdvReac Type Severity Reaction Status Date / Time No Known Drug Allergies Allergy Verified 07/30/25 07:12 Opioid HPI Opioid Management Most Recent Opioid Data: Last Pain Scale 3 08/08/25, 22:08 Last Pain Intensity 0 08/08/25, 12:17 Last ORT Total Score 0 08/05/25, 18:09 Last ORT Risk Category Low Risk 08/05/25, 18:09 Ur Phencyclidine Scrn, (NEGATIVE) Negative Today, 02:00 Review of Systems ROS Narrative Not obtainable, altered mental status [facility] Medical History (Updated 09/03/25 @ 05:51 by Joe España MD) Diverticulitis ?K57.92 - Diverticulitis of intestine, part unspecified, without perforation or abscess without bleeding (ICD-10) Hyponatremia ?E87.1 - Hypo-osmolality and hyponatremia (ICD-10) Paroxysmal atrial fibrillation ?I48.0 - Paroxysmal atrial fibrillation (ICD-10) Syncope ?R55 - Syncope and collapse (ICD-10) Abrasion of scalp ?S00.01XA - Abrasion of scalp, initial encounter (ICD-10) Closed head injury ?S09.90XA - Unspecified injury of head, initial encounter (ICD-10) Laceration of scalp ?S01.01XA - Laceration without foreign body of scalp, initial encounter (ICD-10) Low back pain ?M54.50 - Low back pain, unspecified (ICD-10) Lumbar spondylosis ?M47.816 - Spondylosis without myelopathy or radiculopathy, lumbar region (ICD-10) Thoracic back pain ?M54.6 - Pain in thoracic spine (ICD-10) 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 - Other specified mononeuropathies (ICD-10) Paresthesias in right hand ?R20.2 - Paresthesia of skin (ICD-10) Foreign body in right ear ?T16.1XXA - Foreign body in right ear, initial encounter (ICD-10) Hyponatremia ?E87.1 - Hypo-osmolality and hyponatremia (ICD-10) Hypomagnesemia ?E83.42 - Hypomagnesemia (ICD-10) RADHA (acute kidney injury) ?N17.9 - Acute kidney failure, unspecified (ICD-10) Influenza ?J11.1 - Influenza due to unidentified influenza virus with other respiratory manifestations (ICD-10) Hypomagnesemia ?E83.42 - Hypomagnesemia (ICD-10) Acute hyponatremia ?E87.1 - Hypo-osmolality and hyponatremia (ICD-10) Acute confusion ?R41.0 - Disorientation, unspecified (ICD-10) Diabetes ?E11.9 - Type 2 diabetes mellitus without complications (ICD-10) High cholesterol ?E78.00 - Pure hypercholesterolemia, unspecified (ICD-10) Surgical History Hx of carpal tunnel repair ?Z98.890 - Other specified postprocedural states (ICD-10) Family History Father Family history of myocardial infarction Family history of hypertension Mother Family history of cancer Family history of diabetes mellitus Social History (Updated 06/12/25 @ 22:04 by Edda Yap RN) Within the past year, how often did you have a drink containing alcohol: 2-4 times a month Smoking status: Never smoker Second hand tobacco smoke exposure: No Non-prescribed substance use: denies use Known occupational exposures/hazards: No Highest level of school completed/degree received: high school graduate Are you now , , , , never or living with a partner: Little interest or pleasure in doing things: not at all Feeling down, depressed, or hopeless: not at all Feel stressed/tense/nervous/anxious/difficulty sleeping: not at all Gender Identity: male Gender Identity Comment: Unable to assess due to AMS, Expressive aphasia. Exam Narrative Exam Narrative: Nurses note and vital signs reviewed General:The patient appears in no acute respiratory distress. No cyanosis. Skin:Warm, dry, no pallor noted.There is no rash noted. Head:Normocephalic, atraumatic Eye: Normal conjunctiva, no drainage Ears, Nose, Mouth, and Throat: oral mucosa is moist. Nares patent. Mouth without vesicles. Ear canals patent. Tm?s without Erythema Cardiovascular:Regular Rate and Rhythm Respiratory:Patient is in no distress, no accessory muscle use, lungs are clear to auscultation, no wheezing, rales or rhonchi Back:non-tender GI: Soft and nontender Musculoskeletal: The patient has no evidence of calf tenderness, no pitting edema, symmetrical pulses noted bilaterally Neurological: His eyes are open. He does not answer any my questions or follow simple commands. Psychiatric: Cannot be assessed Constitutional Vital Signs, click to edit/add: Last Vital Signs Temp 98.2 F 09/03/25 01:03 Pulse 90 09/03/25 02:22 Resp 16 09/03/25 02:22 BP 132/90 09/03/25 02:22 Pulse Ox 95 09/03/25 02:22 O2 Del Method Room Air 09/03/25 02:22 Course Vital Signs Vital signs: Vital Signs Temperature 98.2 F 09/03/25 01:03 Pulse Rate 65 09/03/25 01:03 Respiratory Rate 18 09/03/25 01:03 Blood Pressure 145/97 H 09/03/25 01:03 Pulse Oximetry 96 09/03/25 01:03 Oxygen Delivery Method Room Air 09/03/25 01:03 Temperature 98.2 F 09/03/25 01:03 Pulse Rate 90 09/03/25 02:22 Respiratory Rate 16 09/03/25 02:22 Blood Pressure 132/90 09/03/25 02:22 Pulse Oximetry 95 09/03/25 02:22 Oxygen Delivery Method Room Air 09/03/25 02:22 Medical Decision Making MDM Narrative Medical decision making narrative: The patient presented with altered mental status and has a sodium of 117. The initial chest x-ray showed a line mildly concerning for pneumothorax and a repeat was obtained and the line looked different, less extensive. Therefore to rule out a pneumothorax a CAT scan of the chest was performed. At the time of this dictation the radiologist has not yet read the CAT scan but I do not see a pneumothorax. Findings are discussed with the patient's . He was given IV fluids and is being admitted. He does not have any localizing symptoms to suggest a stroke. Differential Diagnosis Differential Diagnosis: Intracranial hemorrhage, hyponatremia, stroke Lab Data Lab results reviewed: Yes I reviewed the patient's lab results Labs: Lab Results 09/03/25 09/03/25 Range/Units 01:53 02:00 WBC 7.1 (4.0-11.0) 10^3/uL RBC 4.48 L (4.70-6.10) 10^6/uL Hgb 14.0 (14.0-18.0) g/dL Hct 38.5 L (42.0-54.0) % MCV 85.9 (80.0-94.0) fL MCH 31.3 (25.9-34.0) pg MCHC 36.4 H (29.9-35.2) g/dL RDW 39.0 H (11.0-15.0) % Plt Count 156 (150-450) 10^3/uL MPV 11.5 (9.5-13.5) fL Neut % (Auto) 77.2 H (43.0-75.0) % Lymph % (Auto) 11.5 L (20.5-60.0) % [place] % (Auto) 10.4 (1.7-12.0) % Eos % (Auto) 0.3 L (0.9-7.0) % Baso % (Auto) 0.3 (0.2-2.0) % Neut # (Auto) 5.5 (1.4-6.5) 10^3/uL Lymph # (Auto) 0.8 L (1.2-3.8) 10^3/uL [place] # (Auto) 0.7 (0.3-0.8) 10^3/uL Eos # (Auto) 0.0 (0.0-0.7) 10^3/uL Baso # (Auto) 0.0 (0.0-0.1) 10^3/uL Abs Immat Gran (auto) 0.02 (0.00-0.03) 10^3/uL Imm/Tot Granulo (auto) 0.3 (0.0-0.5) % Urine Color Yellow (YELLOW) Urine Clarity Clear (CLEAR) Urine pH 6.0 (5.0-9.0) Ur Specific [place] 1.015 (1.005-1.025) Urine Protein Negative (NEG/TRACE) mg/dL Urine Glucose (UA) Negative (NEGATIVE) mg/dL Urine Ketones 15 A (NEGATIVE) mg/dL Urine Occult Blood Negative (NEGATIVE) Urine Nitrite Negative (NEGATIVE) Urine Bilirubin Negative (NEGATIVE) Urine Urobilinogen 0.2 (0.2-1.0) EU/dL Ur Leukocyte Esterase Negative (NEGATIVE) Urine RBC None seen (0-2) #/HPF Urine WBC 0-2 A (NONE SEEN) #/HPF Ur Squamous Epith Cells Rare (NONE/RARE) #/LPF Urine Crystals None seen (None Seen) #/HPF Urine Bacteria None seen (NONE SEEN) #/HPF Urine Casts None seen (NONE SEEN) #/LPF Urine Mucus None seen (NONE SEEN) Ur Culture Indicated? No Urine Opiates Screen Negative (NEGATIVE) Ur Buprenorphine Scrn Negative (NEGATIVE) Ur Oxycodone Screen Negative (NEGATIVE) Urine Methadone Screen Negative (NEGATIVE) Ur Barbiturates Screen Negative (NEGATIVE) U Tricyclic Antidepress Negative (NEGATIVE) Ur Phencyclidine Scrn Negative (NEGATIVE) Ur Amphetamines Screen Negative (NEGATIVE) U Methamphetamines Scrn Negative (NEGATIVE) U Benzodiazepines Scrn Negative (NEGATIVE) Urine Cocaine Screen Negative (NEGATIVE) U Cannabinoids Screen Negative (NEGATIVE) Imaging Data Chest x-ray: My impression: Initial 2 chest x-ray showed a line on the left lung mildly suspicious for pneumothorax versus a skinfold. The line was significantly different between the 2 chest x-rays. CAT scan however on my interpretation does not show a pneumothorax. Critical Care Time Critical Care Time Critical Care Time: Yes Total Critical Care Time: 35 Attestation: Due to the high probability of sudden and clinically significant deterioration in the patient's condition he/she required the highest level of my preparedness to intervene urgently I provided critical care time including documentation time, medication orders and management, reevaluation, vital sign assessment, ordering and reviewing of lab tests, ordering and reviewing of x-ray studies, and admission orders. Aggregate critical care time is 35 minutes including only time during which I was engaged in work directly related to his/her care and did not include time spent treating other patients simultaneously. Discharge Plan Discharge Chief Complaint: Altered Mental Status Clinical Impression: Hyponatremia, Altered mental status Patient Disposition: Admitted As Inpatient Condition: Fair
[2025-09-03 02:26] LABS: Cast Seen? NONE SEEN #/LPF (NONE SEEN); Crystals Seen? None Seen #/HPF (None Seen); Urine Culture Indicated NO
[2025-09-03 02:27] LABS: Cannabinoid Screen Urine NEGATIVE (NEGATIVE); Methamphetamines Screen Urine NEGATIVE (NEGATIVE); Tricyclic Antidepressant Urine NEGATIVE (NEGATIVE)
[2025-09-03 02:32] LABS: Hematocrit 38.5 % (42.0-54.0); Hemoglobin 14.0 g/dL (14.0-18.0); Mean Corpuscular HGB Conc 36.4 g/dL (29.9-35.2); Mean Corpuscular Hemoglobin 31.3 pg (25.9-34.0); Mean Corpuscular Volume 85.9 fL (80.0-94.0); Platelet Count 156 10^3/uL (150-450); Red Blood Count 4.48 10^6/uL (4.70-6.10); White Blood Count 7.1 10^3/uL (4.0-11.0)
[2025-09-03 02:33] LABS: Immature Granulocytes Abs Auto 0.02 10^3/uL (0.00-0.03); Immature Granulocytes Pct Auto 0.3 % (0.0-0.5); Lymphocytes Absolute Auto 0.8 10^3/uL (1.2-3.8)
[2025-09-03 02:34] LABS: Lactate/Lactic Acid 1.1 mmol/L (0.4-2.0)
[2025-09-03 02:35] LABS: Anion Gap 12.1; Blood Urea Nitrogen 9.0 mg/dL (7.0-18.0); Calcium 9.0 mg/dL (8.5-10.1); Carbon Dioxide 26.5 mmol/L (21.0-32.0); Estimated GFR (African America >60 (>=60 mL/min/1.73m^2); Estimated GFR (Non-African Ame >60 (>=60 mL/min/1.73m^2); Glucose 146 mg/dL (74-106); Potassium 4.6 mmol/L (3.5-5.1)
[2025-09-03] MEDS: 0.9 % SODIUM CHLORIDE 1,000 ML 100 ML IV (03:30)
[2025-09-03 05:52] LABS: Sodium 117 mmol/L (136-145)
[2025-09-03 05:53] LABS: Chloride 83 mmol/L (98-107)
--- NOTE | 2025-09-03 06:02 | PC.NURSE ---
Prolonged down time with computer occurred this shift. Computers back up at 0605. See scanned sheets for gap charting. He is currently resting quietly with eyes closed. Respirations are regular and non-labored. Continues to be afib without ectopy with vent rate at 90-128.
[2025-09-03 07:12] LABS: Magnesium 1.6 mg/dL (1.8-2.4)
--- NOTE | 2025-09-03 10:12 | PC.NURSE ---
admitted to room, report obtained from er nurse at bedside. pt has eyes open, does not respond to questions. moans. unable to obtain history. physical assessment completed.
--- OUTSIDE RECORDS SUMMARY | 2025-09-03 10:17 | XMS_ITS | CCD ---
Author Organization [facility] Care Team Providers Care Risk Intern Name Role Phone Jada Rene Unavailable Unavailable Primary Care Provider UnavailEdwin Fletcher Primary Care Physician [phone] Irene COHN, Nathaniel Longo Attending Unavailable Edwin [...] Unavailable Edwin Garcia MD Primary Care Provider [phone] HERNÁNDEZ, AXEL T Referring Unavailable HERNÁNDEZ, AXEL [...] Unavailable Kirnus, Kashif D Attending Unavailable Jules SOLAR PHOTOVOLTAIC SYSTEMS ENGINEER - BARK PRESS OPERATORJaden Primary Care Provider Edwin Garcia Referring Unavailable LALITHA Dubose Admitting Unavailable LALITHA Dubose Attending Unavailable AVASTHFLACO Bansal Attending Unavailable AVASTHRolf FLACO Admitting Unavailable JADEN MARAVILLA Primary Care Unavailable KAYE BARNETT Referring Unavailable BRIGIDA PINA Consulting Unavailable ROBERTO LOWE Consulting Unavailable CICI DUMONT Consulting Unavailable REYES, [...] Unavailable MD Edwin Garcia Attending Unavailable Reyes SOLAR PHOTOVOLTAIC SYSTEMS ENGINEER-Yanique QUAN Primary Care Provider YANIQUE MCNEILL A Attending Unavailable Jules Jaden L Attending Unavailable REYES, YANIQUE A Attending Unavailable REYES, YANIQUE A Attending Unavailable REYES, YANIQUE A Admitting Unavailable REYES, YANIQUE A Attending Unavailable REYES, YANIQUE A Attending Unavailable REYES, YANIQUE A Admitting Unavailable REYES, YANIQUE A Admitting Unavailable REYES, YANIQUE A Admitting Unavailable Reyes BLOCK SAW OPERATOR-BC, Yanique A Primary Care Provider Billy COHN, Thalia Admit Provider Billy COHN, Thalia Other Provider Dev Archuleta DO Other Provider [phone] Duy COHN, Darien Other Provider Win Sanitllan DO Other Provider Leila COHN, Axel Attending Provider [phone] Leila COHN, Axel Other Provider Thalia Cervantes Attending Unavailable Reyes, [...] Gordillo Consulting Unavailable Win Santillan Consulting Unavailable dEwin Garcia Admitting Unavailable Edwin Garcia Attending Unavailable [...] Unavailable Jaden Maravilla Attending Unavailable Allergies Allergy ClassificationReported Allergen(s)Allergy TypeDate of OnsetReaction(s) Facility (12 sources)No Known Medication Allergies; Translations: [No Known Medication Allergies]Propensity to adverse reactions (disorder)[facility] Medications Current Medications MedicationDrug Class(es)DatesSig (Normalized)Sig (Original)Acetaminophen (3 sources)Start: 22-92-6124aphr 1 tablet by mouth every six hours as needed for pain and pain and fever and headacheacetaminophen (TYLENOL) tablet 650 mgStart: 06-17-2025 End: 05-95-6781lyjo 1000 mg intravenously every six hours as needed for pain and pain and fever and headache1,000 mg, intravenous, at 400 mL/hr, Administer over 15 Minutes, Every 6 hours PRN, mild pain - pain scale 1-3, moderate pain - pain scale 4-6, temperature greater than 38 C, headaches, Starting on Tue06/17/25 at 2017, For 24 hoursStart: 48-28-0638naqbmhhmdwmct (TYLENOL) tablet 650 mg acetaminophen 325 mg / HYDROcodone bitartrate 5 mg oral tablet (11 sources)Opioid AgonistStart: 66-65-1969mzxd 1 tablet by mouth every four hours as needed for painNorco 325 mg-5 mg oral tablet See Instructions, for pain, 10 tab(s), Refill(s) 0, 1 tab(s) Oral q4hr PRN Pain. Duration 7 days., [id number], 180.5, cm, 03/20/24 15:05:00 EDT, Height/Length Dosing, 82.5, kg, 03/20/24 15:05:00 EDT, Weight Dosing Start Date: 03/20/24 Status: Ordered End: 62-47-9423OKTCBbjpmvk-acetaminophen (Kelso) 5-325 MG tablet 11/26/2024 Discontinued (Therapy completed)amoxicillin 500 mg / clavulanate 125 mg oral tablet (1 source)Penicillin-class AntibacterialStart: 89-33-4189miuw 1 tablet by mouth three times dailyapixaban 5 mg oral tablet (4 sources)Factor Xa InhibitorStart: 45-17-7810yohs 1 tablet by mouth once daily Apixaban (Eliquis) 5 mg tablet Active 5 MG PO Daily July 19, 2025 12:00am Complies with drug therapyStart: 06-22-2025 End: 59-00-5437fnwm 1 tablet by mouth in the morning, then take 1 tablet by mouth at bedtimeapixaban (ELIQUIS) 5 mg tablet Take 1 tablet (5 mg total) by mouth in the morning and 1 tablet (5 mg total) before bedtime. Do all this for 30 days. 60 tablet 06/23/2025 07/23/2025 Activeaspirin 81 mg delayed release oral tablet (4 sources)Platelet Aggregation Inhibitor, Nonsteroidal Anti-inflammatory Drug Start: 63-64-8368zkki 1 tablet by mouth once dailyAspirin 81 mg tablet,delayed release (DR/EC) Active 81 MG PO Daily July 19, 2025 12:00am Complies with drug therapyStart: 17-77-0539czgd 1 tablet by mouth once dailyASPIRIN 81 MG ORAL TAB Take one (1) tablet daily . 0 08/10/2005 Activetake 1 tablet by mouth in the morningaspirin 81 mg Take 1 tablet (81 mg total) by mouth in the morning. SuspendedComment on above:Take one (1) tablet daily .atenolol 25 mg oral tablet (20 sources)beta-Adrenergic BlockerStart: 03-62-5293Kyfcenhs 25 mg tablet Active 12.5 MG PO Daily July 19, 2025 12:00am Complies with drug therapyStart: 06-19-2025 End: 33-70-3775iott 12.5 mg by mouth once daily12.5 mg, oral, Daily, First dose on Tue06/19/25 at 0915Start: 87-22-5291ksyd 25 mg by mouth twice daily25 mg, Oral, 2 TIMES DAILY, First dose (after last modification) on Tue06/02/25 at 2100, Until Discontinued, Hold for heart rateStart: 19-21-0875hpym 0.5 tablet by mouth in the morningatenoloL (TENORMIN) 25 mg tablet Take 0.5 tablets (12.5 mg total) by mouth in the morning. 05/20/2025Start: 99-46-8935yfqnbyht 25 mg Tab See Instructions, take 1/2 tab daily, # 90 tab(s), Refills(s) 1, Pharmacy: [facility], 178, cm, 09/10/24 13:01:00 EDT, Height/Length Dosing, 80.1, kg, 09/10/24 13:01:00 EDT, Weight Dosing Start Date: 10/22/24 Status: Ordered Quantity: 90.0 Unit: tab(s) Repeat number: 2Start: 04-20-2024 atenolol 25 mg Tab See Instructions, take 1/2 tab daily, # 30 tab(s), Refills(s) 5, Pharmacy: [id number], 180, cm, 04/20/24 13:27:00 EDT, Height/Length Dosing, 82.2, kg, 04/20/24 13:27:00 EDT, Weight Dosing Start Date: 04/20/24 Status: OrderedStart: 10-06-2015 End: 58-37-6830xgyb 25 mg by mouth once daily25 mg, oral, Daily, First dose on 06/22/25 at 0930, Hold if systolic BPtake 1 tablet by mouth every twelve hours Atenolol 25 MG 1 tablet Orally twice a day for 90 days ActiveComment on above: TAKE 1 TABLET ONE TIME DAILYbenzonatate 200 mg oral capsule (10 sources)Non-narcotic Antitussive End: 56-14-2034fspn 1 capsule by mouth three times dailybenzonatate (Tessalon) 200 MG capsule Take 1 capsule 3 times a day by oral route. 11/26/2024 Discont inued (Therapy completed)100 ml calcium gluconate 20 mg/ml injection (1 source)Start: 04-68-0842fvub 4-4.3 mg intravenously every hour as needed2,000 mg, intravenous, at 50 mL/hr, Administer over 2 Hours, As needed, ionized calcium 4 to 4.3 mg/dL, Starting on 06/22/25 at 1115, IV Administration of calcium via a central or deep vein preferred. Avoid administration in small hand veins VESICANT (RED)calcium gluconate 3,000 mg in sodium chloride 0.9 % 100 mL IVPB (1 source)Start: 56-39-4412mfsf 3.5-3.9 mg intravenously every hour as needed 3,000 mg, intravenous, at 43.3 mL/hr, Administer over 3 Hours, As needed, ionized calcium 3.5 to 3.9 mg/dL, Starting on 06/22/25 at 1115, IV Administration of calcium via a central or deep vein preferred. Avoid administration in small hand veins VESICANT (RED)calcium gluconate 4,000 mg in sodium chloride 0.9 % 250 mL IVPB (1 source)Start: 20-14-2840bkkj 3.4 mg intravenously every hour as needed4,000 mg, intravenous, at 72.5 mL/hr, Administer over 4 Hours, As needed, ionized calcium 3.4 mg/dLor less, Starting on 06/22/25 at 1115, IV administration of calcium via a central or deep vein ispreferred. Avoid administration in small hand veins. VESICANT (RED)cephalexin 500 mg oral capsule (12 sources)Cephalosporin AntibacterialStart: 06-05-2025 End: 30-38-8804dbse 1 capsule by mouth every eight hourscephALEXin (KEFLEX) 500 MG capsule Take 1 capsule by mouth every 8 hours for 4 days 12 capsule 06/0506/09/2025 ActiveStart: 39-14-9657hkqk 1 dose by mouth three times daily 500 mg, Oral, EVERY 8 HOURS SCHEDULED (3 times per day), First dose on 06/02/25 at 1415, Until Discontinued, Antimicrobial Indications: Other, Other Abx Indication: nasal packing End: 89-96-8683ivljlpikio (Keflex) 500 MG capsule 11/26/2024 Discontinued (Therapy completed)cholecalciferol 0.125 mg oral capsule (14 sources)Vitamin Dtake 1 capsule by mouth every twenty-four wkbgqUrT56 (18 sources)Start: 56-90-0421YcR33 See Instructions, PRN Prophylaxis, Refills(s) 0 Start Date: 03/06/24 Status: Ordered Repeat number: 1Start: 12-92-0669NfT04 See Instructions, PRN Prophylaxis, Refills(s) 0 Start Date: 03/06/24 Status: Ordered Start: 58-57-1432NvJ75 Refills(s) 0 Start Date: 03/06/24 Status: OrderedD3 (13 sources)Start: 22-33-0379L4 See Instructions, Oral Daily- patient states he takes 500 once a day, Refills(s) 0 Start Date:05/03/24 Status: Ordered Repeat number: 1Start: 52-33-1722O9 See Instructions, Oral Daily- patient states he takes 500 once a day, Refills(s) 0 Start Date:05/03/24 Status: Ordered diclofenac sodium 0.01 mg/mg topical gel (15 sources)Nonsteroidal Anti-inflammatory Drugdiclofenac sodium (Voltaren) 1 % gel APPLY 1/2 inchTO THE AFFECTED AREA(S) BY TOPICAL ROUTE BID Activefinasteride 5 mg oral tablet (20 sources)5-alpha Reductase InhibitorStart: 26-27-1101vskc 1 tablet by mouth once dailyFinasteride 5 mg tablet Active 5 MG PO Daily July 19, 2025 12:00am Complies with drug therapyComment on above:Take 1 tablet by mouth once daily.fluticasone propionate 0.05 mg/actuat metered dose nasal spray (14 sources)CorticosteroidStart: 57-33-5073orsnnryuryn Nasal 0.05 mg/inh [place] See Instructions, 48 mL, Refill(s) 1, USE 1 SPRAY IN EACH NOSTRIL TWICE A DAY, [id number], 178, cm, 08/28/24 14:50:00 EDT, Height/Length Dosing, 82.2, kg, 08/28/24 14:50:00 EDT, Weight Dosing Start Date: 08/31/24 Status: OrderedStart: 10-27-9773osak 1 spray(s) nasal route twice dailyFlonase 0.05 mg/inh [place] 1 spray(s), Nasal, BID, 16 gram, Refill(s) 0, each nostril, [id number], 178, cm, 07/03/24 10:05:00 EDT, Height/Length Dosing, 80.8, kg, 07/03/24 10:05:00 EDT, WeightDosing Start Date: 07/03/24 Status: Ordered End: 48-64-4851eykj 1 spray(s) nasal route once daily at bedtimefluticasone (Flonase) 50 MCG/ACT nasal spray USE 1 SPRAY(S) IN EACH NOSTRIL ONCE DAILY AT BEDTIME 11/26/2024 Discontinued (Therapy completed)gabapentin 300 mg oral capsule (20 sources)Anti-epileptic AgentStart: 73-89-4742vjrw 1 capsule by mouth once dailyGabapentin 300 mg capsule Active 300 MG PO Daily July 19, 2025 12:00am Complies with drug therapyStart: 12-01-2023 End: 52-81-8958eeik 300 mg by mouth once rqbef885 mg, oral, Daily, First dose on Tue06/18/25 at 0900, Look-alike/sound-alike medication - verify indication for use.glimepiride 2 mg oral tablet (20 sources)SulfonylureaStart: 81-16-4643ryka 1 tablet by mouth once daily Glimepiride 2 mg tablet Active 2 MG PO Daily July 19, 2025 12:00am Complies with drug therapyComment on above:Take 1 tablet by mouth once daily.50 ml glucose 500 mg/ml prefilled syringe (5 sources)Start: g, oral, As needed, low blood sugar, blood glucose less than 70 mg/dL, Starting on Tue06/17/25 [id number], If patient conscious and taking PO. If blood glucose is not greater than 70 mg/dL after initial treatment, repeat treatment.Start: mL, intravenous, As needed, low blood sugar, blood glucose less than 70 mg/dL and unconscious orNPO with IV access, Starting on Tue06/17/25 at [...] mg/dL after initial treatment, repeat treatment. VESICANT (RED)Warning: HYPERTONIC solution.Start: 52-72-2595SmlfwDNGgcg, at 100 mL/hr, CONTINUOUS PRN, if blood [...] mg/dL after 60 minutes, discontinue dextrose 10% infusion.Start: 84-45-0286rwdpauga bolus 10% 125 mLStart: g (4 tablet), Oral, PRN, Starting on Tue06/02/25 at 1205, Until Discontinued, Low blood sugar, If blood glucose is LESS THAN 70 mg/dL and patient is alert and tolerating oral. Give 4 tablets (16g)Repeat blood glucose in 15 minutes. If blood glucose is LESS THAN 70 mg/dL, repeat treatment and recheck blood glucose in 15 minutes x 2. If blood glucose remains LESS THAN 70 mg/dL, notify provider.1 ml heparin sodium, porcine 5000 unt/ml injection (2 sources)Unfractionated Heparin, Anti-coagulantStart: ,000 Units, intravenous, As needed, for Anti-Xa less than 0.1 IU/mL, Starting on Tue06/18/25 at 1358, Look-alike/sound-alike medication - verify indication for use. Observe for bleeding.Start: 06-18-2025 End: -3,500 Units/hr (6-70 mL/hr), intravenous, Continuous, Starting on [...] (2 mL/hr), next Anti-Xa in 6 hours. - Notify provider if: Anti-Xa less than 0.3 IU per mL for 2 consecutive results. - 0.3 -0.7 IU/mL: Therapeutic level: next Anti-Xa in 6 hours then every AM. -0.71 - 0.8 IU/mL: decrease rate by 50 units/hr (1 mL/hr), next Anti-Xa in 6 hours. - 0.81 - 1.6 IU/mL: stop infusion for 30 [...] less than or equal to 50% of baselineMonitor for signs of bleeding. Look-alike/sound-alike medication - verify indication for use., Indic ation: Afib or Mechanical Valve, INITIAL Infusion Dose (Units/hr): 950 units/hr1 ml hydrALAZINE hydrochloride 20 mg/ml injection (1 source)Arteriolar VasodilatorStart: 16-28-0835mzuq 10 mg intravenously every six hours as znabol82 mg, intravenous, Every 6 hours PRN, high blood pressure, Starting on Tue06/17/25 at 1625, For systolic blood pressure greater than 180 mmHg and heart rate less than 60. Look-alike/sound-alike medication - verify indication for use. Administer IV doses as a slow IV push; maximum rate: 5 mg/minute.hydroCHLOROthiazide 25 mg oral tablet (15 sources)Thiazide Diuretictake 1 tablet by mouth once daily hydroCHLOROthiazide (HYDRODiuril) 25 MG tablet Take 1 tablet by mouth Daily Active4 ml labetalol hydrochloride 5 mg/ml cartridge (1 source)beta-Adrenergic BlockerStart: 39-39-735695 mg, intravenous, Every 10 min PRN, high blood pressure, Starting on Tue06/17/25 at 1625, For systolic blood pressure greater than 180 mmHg and heart rate greater than 60. May administer up to 3 times in 1 hour Look-alike/sound-alike medication - verify indication for use.levothyroxine sodium 0.025 mg oral tablet (20 sources)l-ThyroxineStart: 60-91-0378labz 1 tablet by mouth once daily Levothyroxine 25 mcg tablet Active 25 MCG PO Daily July 19, 2025 12:00am Complies with drug therapyStart: 39-43-3116surb 25 ug by mouth once daily25 mcg, Oral, DAILY, First dose on Tue06/02/25 at 1415, Until Discontinued, Tube feeding (TF) interaction, obtain physician order to manage, recommend holding TF for 30 minutes before and after dose.Start: 63-46-7739klqo 1 tablet by mouth once daily levothyroxine 25 mcg (0.025 mg) Tab See Instructions, TAKE 1 TABLET BY MOUTH DAILY ON AN EMPTY STOMACH, # 90 tab(s), Refills(s) 1, Pharmacy: [id number], 178.6, cm, 02/05/25 13:36:00 EDT, Height/Length Dosing, 82.2, kg, 02/05/25 13:36:00 EDT, Weight Dosing Start Date: 03/07/25 Status: Ordered Quantity: 90.0 Unit: tab(s) Repeat number: 1Start: 64-57-5885Nekmlkaba 25 mcg(0.025 mg) Tab See Instructions, TAKE 1 TABLET DAILY ON AN EMPTY STOMACH, # 3 tab(s), Refills(s) 0, Pharmacy: [id number], 178, cm, 08/07/24 10:59:00 EDT, Height/Length Dosing,78.2, kg, 08/07/24 10:59:00 EDT, Weight Dosing Start Date: 08/20/24 Status: Ordered Quantity: 3.0 Unit: tab(s) Repeat number: 1Start: 49-11-0180nnrs 1 tablet by mouth once dailylevothyroxine 25 mcg (0.025 mg) Tab 25 mcg = 1 tab(s), Oral, Daily, on an empty stomach, # 90 tab(s), Refills(s) 1, Pharmacy: [facility], 178.2, cm, 02/02/24 10:29:00 EDT, Heigh t/Length Dosing, 84.1, kg, 02/02/24 10:29:00 EDT, Weight Dosing Start Date: 02/13/24 Status: OrderedStart: 68-71-3339Ishikgsdy 25 MCG tablet 02/13/2024 Active Start: 05-69-4326Batygxxds 25 MCG tablet 02/13/2024 ActiveStart: 70-66-9642zsrw 1 tablet by mouth once dailylevothyroxine 25 mcg (0.025 mg) Tab 25 mcg = 1 tab(s), Oral, Daily, on an empty stomach, Refills(s)0 Start Date: 12/01/23 Status: Orderedtake 1 tablet by mouth once daily in the morningLevothyroxine Sodium 25 MCG 1 tablet in the morning on an empty stomach Orally Once a day Activelidocaine 0.05 mg/mg medicated patch (1 source)Antiarrhythmic, Amide Local AnestheticStart: 57-65-6786znwlk 1 dose transdermal route once daily, then apply 1 dose transdermal route every twelve hours1 patch, transdermal, Administer over 12 Hours, Daily, First dose on Tue06/19/25 at 0900, Apply to intact skin on the painful area on back. Patch(es) may remain in place for up to 12 hours in any 24-hour period. Remove previous patch, if present, before applying new.lisinopril 10 mg oral tablet (2 sources)Angiotensin Converting Enzyme InhibitorStart: 22-29-7707ztsn 1 tablet by mouth once dailylisinopril (PRINIVIL;ZESTRIL) 10 MG tablet Take 1 tablet by mouth daily 30 tablet 1 06/06/2025 ActiveStart: 09-51-4515qxrx 10 mg by mouth once daily10 mg, Oral, DAILY, First dose on Tue06/03/25 at 1145, Until Gdzowukubfdi723 ml magnesium sulfate 10 mg/ml injection (1 source)Start: ,000 mg, IntraVENous, at 100 mL/hr, Administer over 1 Hours, PRN, Other, Per IV Magnesium Replacement Protocol, Starting on Tue06/02/25 at 1205, Mg Lab Replacement Action 1.4-1.6 1 gram IVPB x 2 doses (2 gram Total) 1.0-1.3 1 gram IVPB x 4 doses (4 gram Total)magnesium sulfate IVPB 2000 mg/50 mL in iso-osmotic water (40 mg/mL premix) (1 source)Start: 61-52-7367vehvowklb sulfate IVPB 2000 mg/50 mL in iso-osmotic water (40 mg/mL premix)meloxicam 7.5 mg oral tablet (20 sources)Nonsteroidal Anti-inflammatory DrugStart: 42-10-8662eofc 1 tablet by mouth once dailyMeloxicam 7.5 mg tablet Active 7.5 MG PO Daily July 19, 2025 12:00am Complies with drug therapyStart: 89-84-5737hdfd 1 tablet by mouth once dailymeloxicam 7.5 mg Tab 7.5 mg = 1 tab(s), Oral, Daily, TAKE 1 TABLET DAILY, # 30 tab(s), Refills(s) 2, Pharmacy: [facility], 178.6, cm, 02/05/25 13:36:00 EDT, Height/Length Dosing, 82.2, kg, 02/05/25 13:36:00 EDT, Weight Dosing Start Date: 04/25/25 Status: Ordered Quantity: 30.0 Unit: tab(s) Repeat number: 3Start: 63-74-3862vjyk 1 tablet by mouth once daily meloxicam 7.5 mg Tab 7.5 mg = 1 tab(s), Oral, Daily, TAKE 1 TABLET DAILY, # 30 tab(s), Refills(s) 2, Pharmacy: [facility], 178.6, cm, 12/24/24 13:13:00 EST, Height/Length Dosing, 79, kg, 12/24/24 13:13:00 EST, Weight Dosing Start Date: 01/07/25 Status: Ordered Quantity: 30.0 Unit: tab(s) Repeat number: 3Start: 64-58-0668eiqa 1 tablet by mouth once dailymeloxicam 7.5 mg Tab 7.5 mg = 1 tab(s), Oral, Daily, TAKE 1 TABLET DAILY, # 30 tab(s), Refills(s) 2, Pharmacy: [facility], 178.6, cm, 11/01/24 9:21:00 EST, Height/Length Dosing, 81.3, kg, 11/01/24 9:21:00 EST, Weight Dosing Start Date: 12/06/24 Status: OrderedStart: 30-63-0199bxjz 1 tablet by mouth once daily as neededmeloxicam 15 mg Tab 15 mg = 1 tab(s), Oral, Daily, as needed, Refills(s) 0 Start Date: 12/01/23 Status: Orderedmethocarbamol 750 mg oral tablet (11 sources)Muscle RelaxantStart: 56-13-6276mzty 1 tablet by mouth three times daily as needed for painmethocarbamol (Robaxin) 750 MG tablet TAKE 1 TABLET BY MOUTH 3 TIMES A DAY NEEDED FOR PAIN 07/15/2024 Activemidodrine hydrochloride 5 mg oral tablet (3 sources)alpha-Adrenergic AgonistStart: 06-21-2025 End: 34-13-9286oisi 1 tablet by mouth three times dailymidodrine (PROAMATINE) 5 mg tablet Take 1 tablet (5 mg total) by mouth 3 (three) times a day for 30days. 90 tablet 06/23/2025 07/23/2025 Activeondansetron (ZOFRAN-ODT) disintegrating tablet 4 mg (1 source)Start: 06-72-9873zjafpaibgty (ZOFRAN-ODT) disintegrating tablet 4 mg pantoprazole 40 mg delayed release oral tablet (2 sources)Proton Pump InhibitorStart: 30-33-836296 mg, oral, Daily, First dose on Tue06/18/25 at 0600, Look-alike/sound-alike medication - verify indication for use. If patient is receiving enteral feeding, consider alternative PPI or continue IV pantoprazole until the delayed-release tablet can be taken orally, Indication: GERDStart: 03-45-486730 mg, Oral, DAILY BEFORE BREAKFAST, First dose on Tue06/03/25 at 0700, Until Discontinued, Do not crush or break. Substituted for Omeprazole (PRILOSEC).Potassium Chloride (2 sources)Start: 26-11-4748lgcicedqa chloride (K-TAB,KLOR-CON) CR tablet 20-60 mEqStart: 94-55-4116wjnkfekgo chloride (KLOR-CON M) extended release tablet 40 mEqpravastatin sodium 40 mg oral tablet (20 sources)HMG-CoA Reductase InhibitorStart: 91-95-6513vfyl 40 mg by mouth once daily40 mg, Oral, DAILY, First dose on Tue06/02/25 at 1415, Until Discontinued Start: 44-44-5035qigs 1 tablet by mouth once dailyPravastatin 40 mg tablet Active 40 MG PO Daily July 19, 2025 12:00am Complies with drug therapy pravastatin (Pravachol) 20 MG tablet ActiveComment on above:Take 1 tablet by mouth daily at bedtime.rosuvastatin calcium 5 mg oral tablet (1 source)HMG-CoA Reductase InhibitorStart: 68-13-4174eekb 5 mg by mouth once daily5 mg, oral, Nightly, First dose on Tue06/19/25 at 2200, Look-alike/sound-alike medication - verify indication for use.sildenafil 100 mg oral tablet (20 sources)Phosphodiesterase 5 InhibitorStart: 02-02-2024 End: 11-09-3165ndev 1 tablet by mouth once daily as neededsildenafil 100 mg Tab 100 mg = 1 tab(s), Oral, Daily, PRN for erectile dysfunction, 1 hour before se xual activity, # 5 tab(s), Refills(s) 0, Pharmacy: [facility], 178, cm, 07/03/24 10:05:00 EDT, Height/Length Dosing, 80.8, kg, 07/03/24 10:05:00 EDT, Weight Dosing Start Date: 07/03/24 Status: Ordered Quantity: 5.0 Unit: tab(s) Repeat number: 1take 1 tablet by mouth once daily as neededsildenafil (Viagra) 50 MG tablet TAKE 1 TABLET BY MOUTH ONCE DAILY NEEDED FOR INTERCOURSE FOR 14DAYS Activesodium chloride 1000 mg oral tablet (20 sources)Start: 81-34-5566kyfu 1 tablet by mouth twice dailySodium Chloride 1,000 mg tablet,soluble Active 1000 MG PO Twice daily July 19, 2025 12:00am Complies with drug therapyStart: 06-19-2025 End: 99-53-6245vnzt 1000 mg by mouth twice daily1,000 mg, oral, 2 times daily, First dose on Tue06/19/25 at 0915Start: 88-34-482278 mL, intravenous, As needed, line care, Starting on Tue06/17/25 at 1612Start: 06-17-2025 End: 56-79-739588 mL, intravenous, Once in imaging, pre/post contrast, Starting on Tue06/17/25 at 1612, For 1 doseStart: 06-03-2025 End: 43-73-043625 mL/hr, IntraVENous, CONTINUOUS, Starting on Tue06/03/25 at 2100, Until Tue06/03/25 at 2259, For rates greater than 100 mL/hr, CENTRAL LINE/PICC LINE administration required. Goal serum Na+ = 120 to 124 Notify physician and HOLD infusion if sodium increases more than 4 mEq/L (4 mmol/L) over 2 hours OR 8-10 mEq/L (8-10 mmol/L) over 24 hours OR if serum Na+ goal is exceeded.Start: 06-03-2025 End: g, Oral, 3 TIMES DAILY, First dose (after last modification) on Tue06/03/25 at 1400, Until DiscontinuedStart: -40 mL, IntraVENous, EVERY 12 HOURS SCHEDULED (2 times per day), First dose on Tue06/02/25 at 2100, Until Discontinued, For Line Patency: Peripheral IV = 5 mL; Midline or Central Line = 10 mL/lumen.If following IV push medication, administer flush at same rate as the IV push. Flush volume is determined by type of infusion therapy being given. For non-viscous solutions use: Peripheral IV = 5 mL Midline or Central Line = 10 mL/lumen For viscous solutions (i.e. blood components, parenteral nutrition, contrast media, or after obtaining blood sample) use: Peripheral IV = 10 mL Midline or CentralLine = 20 mL/lumenStart: 49-97-1257ujjb 2 spray(s) nasal route every four hours2 spray, Each Nostril, EVERY 4 HOURS, First dose (after last modification) on Tue06/02/25 at 1415, Until Discontinued Start: 01-12-8489KnjobUXVihi, at 5-250 mL/hr, PRN, if patient receiving [...] and 100 mL/hr into rate field of order.Start: 73-87-0004gvzp 10 mL intravenously once as bioxeu77 mL, IntraVENous, PRN, Starting on [place] 06/02/25 at 1205, Until Discontinued, Line Care, After every IV line useStart: 05-14-2025 End: 13-87-0599kjlz 1000 mg by mouth three times daily1,000 mg, oral, 3 times daily around food, First dose (after last modification) on [place] 06/20/25 at 1700 Start: 63-62-2731Fikxgg Chloride 1 g oral tablet See Instructions, Take 1g BID daily, # 180 tab(s), Refills(s) 0, [id number] 178.6, cm, 05/09/25 8:18:00 EDT, Height/Length Dosing, 80.6, kg, 05/09/25 8:18:00 EDT, Weight Dosing Start Date: 05/14/25 Status: Ordered Quantity: 180.0 Unit: tab(s) Repeat number: 1Start: 29-56-9434Birzab Chloride 1 g oral tablet See Instructions, Take 1g BID daily, # 60 tab(s), Refills(s) 3, [id number] 178.6, cm, 02/05/25 13:36:00 EDT, Height/Length Dosing, 82.2, kg, 02/05/25 13:36:00 EDT, Weight Dosing Start Date: 02/06/25 Status: Ordered Quantity: 60.0 Unit: tab(s) Repeatnumber: 4Start: 46-26-5513hihq 1 tablet by mouth twice dailySodium Chloride 1 g oral tablet See Instructions, 1 gram orally BID, # 180 tab(s), Refills(s) 0, Pharmacy: [facility], 178.6, cm, 01/24/25 13:29:00 EDT, Height/Length Dosing, 82.7, kg, 01/24/25 13:29:00 EDT, Weight Dosing Start Date: 01/24/25 Status: OrderedStart: 55-14-9250cknb 1 tablet by mouth once dailySodium Chloride 1 g oral tablet See Instructions, 1 gram orally daily, # 90 tab(s), Refills(s) 0, [id number] 178.6, cm, 12/24/24 13:13:00 EST, Height/Length Dosing, 79, kg, 12/24/24 13:13:00 EST, Weight Dosing Start Date: 01/07/25 Status: Ordered Start: 69-29-8401voji 1 tablet by mouth once dailySodium Chloride 1 g oral tablet See Instructions, 1 gram orally daily, # 90 tab(s), Refills(s) 0, Ph armacy: [facility], 178.6, cm, 12/24/24 13:13:00 EST, Height/Length Dosing, 79, kg, 12/24/24 13:13:00 EST, Weight Dosing Start Date: 12/26/24 Status: OrderedStart: 27-36-0667mjjr 1 tablet by mouth once dailySodium Chloride 1 g oral tablet See Instructions, 1 gram orally daily, # 90 tab(s), Refills(s) 0, Pharmacy: [facility], 178.6, cm, 12/17/24 15:05:00 EST, Height/Length Dosing, 78.5, kg, 12/17/24 15:05:00 EST, Weight Dosing Start Date: 12/17/24 Status: OrderedStart: 69-80-6950sono 1 tablet by mouth once dailySodium Chloride 1 g oral tablet See Instructions, 1 gram orally daily, # 90 tab(s), Refills(s) 0, [id number] 178, cm, 06/11/24 12:53:00 EDT, Height/Length Dosing, 82, kg, 06/11/24 12:56:00 EDT, Weight Dosing Start Date: 06/27/24 Status: OrderedStart: 27-34-8911ytxy 1 tablet by mouth once dailySodium Chloride 1 g oral tablet See Instructions, patient states Dr. Najera took this down to one tab once daily, Refills(s) 0 Start Date: 05/03/24 Status: OrderedStart: 98-59-9015jhmw 1 tablet by mouth twice dailySodium Chloride 1 g oral tablet See Instructions, TAKE 1 TABLET BY MOUTH TWICE DAY, # 90 tab(s), Ref ills(s) 2, [id number] 180.5, cm, 03/20/24 15:05:00 EDT, Height/Length Dosing, 82.5, kg, 03/20/24 15:05:00 EDT, Weight Dosing Start Date: 04/05/24 Status: OrderedStart: 12-29-2023 End: 22-84-6352ialn 1 tablet by mouth in the morningsodium chloride 1 g tablet Take 1 g by mouth in the morning and 1 g before bedtime. 12/29/2023 ActiveStart: 06-81-4744fpdm 1 tablet by mouth twice dailySodium Chloride 1 g oral tablet See Instructions, TAKE 1 TABLET BY MOUTH TWICE DAY, # 90 tab(s), Refills(s) 2, Pharmacy: [facility], 178.2, cm, 12/01/23 13:40:00 EST, Height/Length Dosing, 85.5, kg, 12/01/23 13:40:00 EST, Weight Dosing Start Date: 12/23/23 Status: OrderedSodium Chloride 1000 mg oral tablet, soluble (1 source)Start: 26-28-7161wdxw 1 tablet by mouth once dailySodium Chloride 1000 mg oral tablet, soluble See Instructions, 30 tab(s), Refill(s) 0, Take one tabl et daily, [id number] 178.6, cm, 11/01/24 9:21:00 EST, Height/Length Dosing, 81.3, kg, 11/01/24 9:21:00 EST, Weight Dosing Start Date: 11/13/24 Status: Orderedsodium phosphate 20 mmol in sodium chloride 0.9 % 250 mL IVPB (1 source)Start: 20-93-8264oivbyp phosphate 20 mmol in sodium chloride 0.9 % 250 mL IVPBtadalafil 2.5 mg oral tablet (3 sources)Phosphodiesterase 5 InhibitorStart: 74-15-1055zieh 1 tablet by mouth once daily as neededCialis 2.5 mg oral tablet 2.5 mg = 1 tab(s), Oral, Daily, PRN for erectile dysfunction, # 7 tab(s),Refills(s) 0, [id number] 178.6, cm, 02/05/25 13:36:00 EDT, Height/Length Dosing,82.2, kg, 02/05/25 13:36:00 EDT, Weight Dosing Start Date: 05/07/25 Status: Ordered Quantity: 7.0 Unit: tab(s) Repeat number: 1tiZANidine 4 mg oral tablet (8 sources)Central alpha-2 Adrenergic AgonistStart: 07-24-2024 End: 67-19-4308ahOPCcflcy (Zanaflex) 4 MG tablet Take 4 mg by mouth 07/24/2024 11/26/2024 Discontinued (Therapy completed)triamcinolone acetonide 1 mg/ml topical cream (14 sources)CorticosteroidStart: 02-49-7770Dbvsz: 90-22-2335Yojnlloclxbtk Acetonide 0.1 % 1 application Externally BID for 14 days Jun, Active Turmeric Curcumin 500 MG (14 sources)Turmeric Curcumin 500 MG as directed Orally Activeturmeric extract 500 mg oral capsule (18 sources)Start: 94-45-9650rgsy 1 capsule by mouth once daily as needed Turmeric 500 mg oral capsule 500 mg = 1 cap(s), Oral, Daily, PRN Prophylaxis, Refills(s) 0 Start Date: 03/06/24 Status: Ordered Repeat number: 1urea (URE-NA) 15 g PACK packet (4 sources)Start: 06-06-2025 End: 58-81-3727mfwr 15 g by mouth once dailyurea (URE-NA) 15 g PACK packet Take 15 g by mouth daily 30 each 06/06/2025 07/06/2025 ActiveStart: 42-62-6112fqji 15 g by mouth once dailyurea (URE-NA) 15 g PACK packet Take 15 g by mouth daily 30 each 3 06/05/2025 ActiveStart: 24-53-8206wgdk 15 g by mouth once dailyurea (URE- NA) 15 g PACK packet Take 15 g by mouth daily 30 each 2 06/05/2025 ActiveUrea (Ure-Na) 15 gram powder in packet (1 source)Start: 17-82-2425Bire (Ure-Na) 15 gram powder in packet Active 1 PACKET PO Daily July 19, 2025 12:00am Complies with drug therapyurea (URE- NA) packet 15 g (2 sources)Start: g, oral, 2 times daily, First dose on Tue06/20/25 at 1330, Mix each 15 g dose with 3 to 4 ounces of water or juice.Start: g, Oral, DAILY, First dose on Tue06/06/25 at 0900, Until Discontinued, Mix each 15 g dose with 3to 4 ounces of water or juice.vitamin B12 (19 sources)Vitamin S21Iivsd: 93-06-5412vujt 50 ug by mouth once daily as needed Vitamin B12 50 mcg, Oral, Daily, PRN Prophylaxis, Refills(s) 0 Start Date: 03/06/24 Status: Ordered Repeat number: 1Start: 53-33-4654klgl 50 ug by mouth once daily as neededVitamin B12 50 mcg, Oral, Daily, PRN Prophylaxis, Refills(s) 0 Start Date: 03/06/24 Status: OrderedStart: 01-46-7014Eoxnqor B12 Refills(s) 0 Start Date: 03/06/24 Status: OrderedStart: 90-03-9406iirl 1 tablet by mouth once dailycyanocobalamin 1,000 mcg ORAL Tab Take 1 tablet by mouth once daily. 0 07/28/2011 ActiveComment on above:Take 1 tablet by mouth once daily.Vitamin D3 5000 intl units (125 mcg) oral tab (10 sources)Start: 56-45-1482kyol 1 tablet by mouth once dailyVitamin D3 5000 intl units (125 mcg) oral tab 125 mcg = 1 tab(s), Oral, Daily, Refills(s) 0 Start Date: 12/01/23 Status: Orderedwarfarin placeholder: dosing by pharmacy (1 source)Start: 27-67-2379Wgbsgd contact the pharmacy if a dose is not entered by 1600. Review INR prior to warfarin administration. Completed/Discontinued Medications MedicationDrug Class(es)DatesSig (Normalized)Sig (Original)b complex vitamins capsule (1 source)take 1 capsule by mouth once dailyb complex vitamins capsule Take 1 capsule by mouth daily SuspendedBlood-Glucose Meter (CONTOUR METER) monitoring kit (1 source)Start: 89-69-2223Bqmcl-Glucose Meter (CONTOUR METER) monitoring kit Indications: Type II or unspecified type diabetes mellitus without mention of complication, not stated as uncontrolled Testing twice daily 1 Each 0 08/23/2012 ActiveComment on above:Testing twice dailycyclobenzaprine hydrochloride 10 mg oral tablet (1 source)Muscle Relaxant End: 56-44-2340cxgv 1 tablet by mouth three times daily as needed for muscle spasmscyclobenzaprine (FLEXERIL) 10 MG tablet Take 1 tablet by mouth 3 times daily as needed for Muscle spasms 06/05/2025 Discontinued (Stop Taking at Discharge)dabigatran etexilate 150 mg oral capsule (16 sources)Start: 62-50-1842viec 1 capsule by mouth twice dailydabigatran etexilate (PRADAXA) 150 mg cap Indications: Atrial fibrillation (HCC) Take 1 capsule by mouth twice daily. 180 capsule 3 10/09/2014 ActiveComment on above: Take 1 capsule by mouth twice daily.glipiZIDE 5 mg oral tablet (1 source)SulfonylureaStart: mg, Oral, DAILY BEFORE BREAKFAST, First dose on Tue06/03/25 at 0700, Until Discontinued, Substituted for glimepiride (AMARYL).glucagon (rdna) 1 mg injection (3 sources)Antihypoglycemic AgentStart: 06-22-2025 End: 05-46-2711slcevl 1 mg by intramuscular injection once1 mg, intramuscular, Once, On 06/22/25 at 1530, For 1 doseStart: mg, intramuscular, As needed, low blood sugar, blood glucose less than 70 mg/dL and unconscious or NPO without IV access., Starting on 06/17/25 at 1622, If conscious and not NPO, immediately follow with meal tray or high protein (7Grams) snack if tray not available. If NPO, initiate IV 5% Dextrose/Water at 100 mL/hr and contact prescriber for additional orders. If blood glucose is not greaterthan 70 mg/dL after initial treatment, repeat treatment.Start: mg, SubCUTAneous, PRN, Starting on Tue06/02/25 at 1205, Until Discontinued, Low blood sugar, Blood glucose LESS THAN 70 mg/dL and patient NOT ALERT or NPO and does not have IV access., After administration, attempt intravenous access and start dextrose 10% at 100 mL/hr. Repeat blood glucose in 15minutes x 2 and notify provider. Reconstitute powder for injection by adding 1 mL of grinding wheel facer-supplied sterile diluent or sterile water for injection to a vial containing 1 mg of the drug, to provide solutions containing 1 mg/mL. Shake vial gently to dissolve. insulin lispro 100 unt/ml injectable solution (1 source)Insulin AnalogStart: 58-92-22923-4 Units, SubCUTAneous, 4 TIMES DAILY BEFORE MEALS & NIGHTLY, First dose on Tue06/02/25 at 1230, Until Discontinued, Corrective Low Dose Algorithm Glucose: Dose: 70-179 No Insulin 180-249 1 U nit 250-299 2 Units 300-349 3 Units Over 349 4 Units and notify physician Administer as soon as possible within 60 minutes of last blood glucose check iohexoL (OMNIPAQUE) 350 mg iodine/mL injection 100 mL (1 source)Start: 06-17-2025 End: 42-44-7307155 mL, intravenous, Once in imaging, contrast, Starting on Tue06/17/25 at 1612, For 1 dose, VESICANT (RED)1 ml LORazepam 2 mg/ml injection (1 source)BenzodiazepineStart: 06-03-2025 End: mg, IntraVENous, EVERY 4 HOURS PRN, Starting on Tue06/03/25 at 1640, Until Tue06/04/25 at 1257, Agitation, Immediately prior to intravenous use, lorazepam Injection must be diluted with at least anequal volume of compatible solution (NS or D5W).omeprazole 40 mg delayed release oral capsule (20 sources)Proton Pump InhibitorStart: 47-57-2725tppv 1 capsule by mouth once daily before breakfastomeprazole (PriLOSEC) 40 mg capsule Take 1 capsule (40 mg total) by mouth every morning before breakfast. 01/07/2025take 2 capsules by mouth once dailyomeprazole (PRILOSEC) 20 MG delayed release capsule Take 2 capsules by mouth daily Suspendedpolyethylene glycol 3350 96522 mg powder for oral solution (1 source)Osmotic LaxativeStart: g, Oral, DAILY PRN, Starting on Tue06/02/25 at 1205, Until Discontinued, Constipation, First line therapy for constipationtamsulosin hydrochloride 0.4 mg oral capsule (20 sources)alpha-Adrenergic BlockerStart: 98-84-1453niuc 0.4 mg by mouth once daily at mealtime0.4 mg, Oral, DAILY, First dose on Tue06/02/25 at 1415, Until Discontinued, Do not crush or break. Give 30 minutes after a full meal to limit risk of orthostatic hypotension/falls.Comment on above:Take 1 capsule by mouth daily at bedtime.tolvaptan (SAMSCA) pre-split tablet 7.5 mg (2 sources)Start: 06-05-2025 End: 57.5 mg, Oral, ONCE, 1 dose, On Tue06/05/25 at 1115, Has the patient failed fluid restriction? Yes, Is the patient's serum sodium less than 125 mEq/L and plasma osmolality less than 285 mOsm/kg OR less marked hyponatremia that is symptomatic and resistant to fluid restriction? Yes, Does patient havehypovolemic hypotonic hyponatremia OR signs of dehydration? No, Is the patient anuric? NoStart: 06-04-2025 End: 57.5 mg, Oral, ONCE, 1 dose, On Tue06/04/25 at 1230, Has the patient failed fluid restriction? Yes, Is the patient's serum sodium less than 125 mEq/L and plasma osmolality less than 285 mOsm/kg OR less marked hyponatremia that is symptomatic and resistant to fluid restriction? Yes, Does patient havehypovolemic hypotonic hyponatremia OR signs of dehydration? No, Is the patient anuric? Noubidecarenone 100 mg oral capsule (15 sources) End: 75-76-9437xnfh 1 capsule by mouth once in the morningcoenzyme Q10 100 mg capsule Take 1 capsule (100 mg total) by mouth in the morning. 06/17/2025 Discon tinued (Duplicate Listing)ubidecarenone 100 mg / vitamin e 5 unt oral capsule (3 sources)take 1 capsule by mouth in the morningcoenzyme L20-slbjula E 100-5 mg-unit capsule Take 100 mg by mouth in the morning. Suspendedurea (URE-NA) 15 gram powder in packet (2 sources)take 1 dose by mouth in the morningurea (URE-NA) 15 gram powder in packet Take 1 packet (15 g total) by mouth in the morning. Suspendedtake 1 dose by mouth in the morningurea (URE-NA) 15 gram powder in packet Take 1 packet (15 g total) by mouth in the morning.warfarin sodium 2.5 mg oral tablet (20 sources)Vitamin K AntagonistStart: 06-20-2025 End: .5 mg, oral, User Specified (Once per day [...] & notify prescriber if INR greater than: 3.5Start: 06-02-2025 End: .5 mg, Oral, ONCE Warfarin, 1 dose, On Tue06/02/25 at 1800, Indication of Use: A Fib/A Flutter, What is the patient's goal INR? 2.0 - 3.0, Review INR prior to administration. Hazardous med- See facility policy for handling/disposalStart: 03-06-2024 End: mg, oral, User Specified (Once per day [...] & notify prescriber if INR greater than: 3.5Start: 32-80-9602pwdv 0.5 tablet by mouth every other day, then take 1 tablet by mouth every other daywarfarin 5 mg Tab See Instructions, 0.5 tab(s) orally every other day and 1 tab every other day, Refills(s) 0 Start Date: 12/01/23 Status: OrderedWarfarin 5mg 5 mg 1 tablet on Tuesday, Tuesday, Tuesday orally ActiveWarfarin 2.5mg 2.5 mg 1 tablet on Tuesday, Tuesday, , Tuesday orally Activetake 1 tablet by mouth every other day Warfarin 5mg 5 mg 1/2 tablet orally every other day Active Problems Active Problems Problem ClassificationProblemDateDocumented DateEpisodic/ChronicAbdominal hernia (14 sources)Inguinal hernia; Translations: [Unilateral inguinal hernia, without obstruction or gangrene, not specified as recurrent]Onset: 74-35-3409Zvganknb Abdominal pain (3 sources)Lower abdominal pain; Translations: [Lower abdominal pain, unspecified]Onset: 488870-66-2693ArxujzftCurns cerebrovascular disease (4 sources)Thrombotic stroke; 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]Onset: hronic Allergic reactions (1 source)Dermatitis, unspecifiedEpisodicCardiac dysrhythmias (20 sources)Atrial fibrillation; Translations: [Unspecified atrial fibrillation] Onset: 23-93-6611VbszzkjFvzewlyxrug and hemorrhagic disorders (2 sources)Hypercoagulability state; Translations: [Other thrombophilia]Onset: 832200-78-1128LgdyrkvNhddkwmz atherosclerosis and other heart disease (1 source)Coronary atherosclerosis; Translations: [Atherosclerotic heart disease of elem coronary artery without angina pectoris]Onset: 48-99-0826Riuurpr Crushing injury or internal injury (3 sources)Splenic hematoma; Translations: [Unspecified contusion of spleen, initial encounter]Onset: 196400-54-3716WxcvogumVbbbmgzg mellitus without complication (20 sources)Type 2 diabetes mellitus; Translations: [Type 2 diabetes mellitus without complications]Onset: 14-30-5796YdkuvfcUwrrlukzp of lipid metabolism (19 sources)Hyperlipidemia; Translations: [Hyperlipidemia, unspecified] 98-92-2136MbzdauxGxjcshnhuujixb and diverticulitis (3 sources)Diverticulitis of gastrointestinal tract; Translations: [Diverticulitis of intestine, part unspecified, without perforation or abscess without bleeding]Onset: 876344-41-9939MaxrollY Codes: Fall (11 sources)Fall in ntor61-08-0670Mbhwtiphh hypertension (10 sources)Benign hypertension; Translations: [Essential (primary) hypertension]Onset: 575214-01-9564WykdcsrYhnde and electrolyte disorders (20 sources)Hypo-osmolality and hyponatremia; Translations: [Hyponatremia]Onset: 36-61-4615LbkymewiIblfabuazgj of prostate (20 sources)Benign prostatic hyperplasia; Translations: [Benign prostatic hyperplasia without lower urinary tract symptoms]Onset: 40-95-1914Vmjqrob Immunizations and screening for infectious disease (1 source)Encounter for immunizationEpisodicInfluenza (1 source)Influenza due to other identified influenza virus with other respiratory manifestationsEpisodicOcclusion or stenosis of precerebral arteries (9 sources)Carotid artery occlusion; Translations: [Occlusion and stenosis of unspecified carotid artery]Onset: 337931-71-2987ZetcothWmdg wounds of head; neck; and trunk (4 sources)Laceration of qzic48-38-8244BhrdhievDltugxtquuvvta (20 sources)Degenerative joint disease involving multiple joints; Translations: [Polyosteoarthritis, unspecified]Onset: 258512-82-2481NbeklwgMnrhw aftercare (14 sources)Long-term current use of anticoagulant; Translations: [longterm (current) use of anticoagulants]EpisodicOther aftercare (3 sources)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) use of anticoagulantsEpisodicOther aftercare (1 source)Post-discharge qmzewt-bo31-20vl36-67-0226EdkttfajXugbn aftercare (2 sources)Anticoagulant effect; Translations: [longterm (current) use of anticoagulants]Onset: 959182-60-1358GexzksbvWmnpo and unspecified benign neoplasm (17 sources)Melanocytic nevus of mnbd20-49-7363KibogimoYbhii connective tissue disease (18 sources)Triggering of vorcu34-20-3559NxkecmdcIvagj connective tissue disease (1 source)Acquired trigger finger of right little finger; Translations: [Trigger finger, right little finger]Onset: 41-58-0541QydhfnluWfijt connective tissue disease (1 source)Pain of bilateral upper limbs; Translations: [Pain in right arm] 88-76-6110EodqqnivPtoeb connective tissue disease (2 sources)Pain in right hand; Translations: [Pain in right hand]10-03-2024 EpisodicOther connective tissue disease (2 sources)Muscle weakness of upper limb; Translations: [Other symptoms and signs involving the musculoskeletal system]56-95-1473HryfzmokAegze diseases of kidney and ureters (1 source)Other obstructive and reflux uropathy; Translations: [Other obstructive and reflux uropathy]Onset: 40-58-4834YactvsodXvqfa ear and sense organ disorders (20 sources)Hearing loss; Translations: [Unspecified hearing loss, unspecified ear]Onset: 450232-40-9009KwpwuiqGgayq ear and sense organ disorders (1 source)Unspecified hearing loss, unspecified earChronicOther endocrine disorders (2 sources)Syndrome of inappropriate vasopressin secretion; Translations: [Syndrome of inappropriate secretionof antidiuretic hormone]Onset: 06-05-2025 39-57-3310YblkjvxZckux hematologic conditions (2 sources)Splenic infarction; 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]07-20-2025 EpisodicOther hematologic conditions (1 source)Infarction of spleen; 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]Onset: 64-87-0632KpdxnwowIrxjr injuries and conditions due to external causes (2 sources)Foreign body in right ear; Translations: [Foreign body in right ear, initial encounter]50-84-3399BljvurnsEcalp male genital disorders (13 sources)Impotence; Translations: [Male erectile dysfunction, unspecified] Onset: 941250-44-8595GmtguwtCtfmb male genital disorders (20 sources)Erectile dysfunction co-occurrent and due to arterial insufficiency; Translations: [Erectile dysfunction due to arterial insufficiency]Onset: 695273-38-5485VntfdulBkmwi nervous system disorders (20 sources)Carpal tunnel syndrome; Translations: [Carpal tunnel syndrome, unspecified upper limb]Onset: 231364-18-9901QhlctuuWhzcj nervous system disorders (1 source)Neuropathy; Translations: [Polyneuropathy, unspecified]Onset: 019827-16-6408ArfeoweAzmeb nervous system disorders (1 source)Bilateral carpal tunnel syndrome; Translations: [Carpal tunnel syndrome, bilateral upper limbs]02-93-9969EsejdnfJyius nervous system disorders (1 source)Carpal tunnel syndrome of left wrist; Translations: [Carpal tunnel syndrome, left upper limb]Onset: 99-43-3388VknfmpyOgbqc nervous system disorders (2 sources)Toxic metabolic encephalopathy; Translations: [Toxic metabolic encephalopathy]Onset: 714476-07-2944ElkeukgsBdtaq nutritional; endocrine; and metabolic disorders (3 sources)Body mass index 25-29 - lbdlugjffo17-50-2380NzibexymEjgkd nutritional; endocrine; and metabolic disorders (2 sources)H/O: hypothyroidism; Translations: [Personal history of other endocrine, nutritional and metabolic disease]Onset: 549496-29-3621Gjpeoddu Other screening for suspected conditions (not mental disorders or infectious disease) (12 sources)Encounter for screening for malignant neoplasm of prostate; Translations: [Melanocytic nevus of skin ]Onset: 08-97-8514GrhusgpcXnyqr upper respiratory disease (2 sources)Bleeding from nose; Translations: [Epistaxis]Onset: 06-02-2025 34-01-0714XvhtuhyxSomdvq media and related conditions (5 sources)Serous otitis hkgyy54-36-9801OlaagspoRjeuntgpga and visceral atherosclerosis (20 sources)Arteriosclerotic vascular disease; Translations: [Atherosclerotic heart disease of elem coronary artery without angina pectoris]Onset: 746222-37-8489ChdgasaGghmtkhlav (except in labor) (3 sources)Sepsis; Translations: [Sepsis, unspecified organism]Onset: 07-19-2025 43-10-8702RnrkhgrzVdvng and face fractures (2 sources)Closed fracture of nasal bones; Translations: [Fracture of nasal bones, initial encounter for closed fracture]Onset: 245786-94-1435Sxtivyqf Spondylosis; intervertebral disc disorders; other back problems (10 sources)Intervertebral disc disorder of cervical region with myelopathy; Translations: [Cervical disc disorder with myelopathy, unspecified cervical region]Onset: 503076-56-3989PhmppaxZsdcxjo (20 sources)Syncope and collapse; Translations: [Syncope]Onset: 04-20-2024 EpisodicThyroid disorders (20 sources)Hypothyroidism; Translations: [Hypothyroidism, unspecified]Onset: 44-35-8759QyyhqzfNwrocvgntnuu (1 source)Body mass index 20-24 - npuqxw55-57-3708Pzaxkwunxgvt (6 sources)Ajo-qzbozw81-83lwrtmq11-19-4713Lhdyixdszauh (2 sources)As neededUnclassified (1 source)The office is aware of your hospital stay and need for follow up, the office will call you to schedule. Please call the office if you have not heard from them by the next business day.Unclassified (1 source)You have been scheduled for a follow up appointment for the following date and time, please call to reschedule if needed. Past or Other Problems Problem ClassificationProblemDateDocumented DateEpisodic/ChronicE Codes: Fall (8 sources)Fall in home; Translations: [Unspecified fall, initial encounter] Onset: 246475-23-5715PzpiwypdWucn disorders (1 source)Mood disordersOnset: Other nutritional; endocrine; and metabolic disorders (20 sources)Overweight in adulthood with body mass index of 25 or more but less than 30; Translations: [Body mass index (BMI) 25.0-25.9, adult]Onset: 11-26-2024 41-10-3113VcfuejsgZwimdnlnzai; intervertebral disc disorders; other back problems (18 sources)Spasm of back muscles; Translations: [Muscle spasm of back]Onset: 236044-15-1537Mflvbemo Results Test NameValueInterpretationReference RangeFacilityAmbulatory Visit Summaryon [id number] Visit SummaryAmbulatory Visit Summary DARIEL ZABALA :1940 Visit Date:08/26/2025 [...] Appointments Tuesday 10:00 AM EDT With: Where: [address] [address]- Tuesday 11:00 AM EST With: Jaden Pineda Where: [address] [address]- Tuesday2025 8:00 AM EDT With: Where: [address] [id number] Medications What How Much When Why Instructions [...] disease BMI 23.0-23.9, adult Nonsmoker Natural Lemon [place] flavor Unchanged pravastatin (pravastatin 40 mg Tab) [...] signed up for this yet, please contact [employer] at [phone] to get signed up today. Language Information Language assistance services are available as needed. [facility] Medicine Office/Clinic Noteon [phone] Medicine Office/Clinic NoteFaleonard morse hospital Medicine Office/Clinic Note Chief Complaint TCU follow up The patient presents for follow-up on hyponatremia and medication management. [facility] Hospital: [facility] Admission date: 08/09/25 Discharge date: 08/19/25 Symptoms [...] independently at times, undergoing physical therapy for strengthand endurance. Physical Exam Vitals & Measurements T: [...] medications in outpatient record [id number] Sodium Level [facility] 14 day disch 39272 2. Weight loss (R63.4: Abnormal weight loss) [...] days., # 180 tab(s), Refills(s) 0, Pharmacy: [facility]/pharmacy #[id number], 178, cm, ... atorvastatin, 10 mg = 1 tab(s), Oral, Daily, 14 EA, 0 Refill(s), TAKE 1 TABLET BY MOUTH EVERY DAY, # 90 tab(s), Refills(s) 0, Pharmacy: [facility]/pharmacy #[id number], 178, cm, 08/26/25 10:31:00 EDT, Height/Length Dosing, 72.5, kg, 08/26/25 10:31:00 EDT, Weight Dosing linagliptin, 5 mg = 1 tab(s), Oral, Daily, 14 EA, 0 Refill(s), TAKE 1 TABLET BY MOUTH EVERY DAY, # 90 tab(s), Refills(s) 0, [id number] 178, cm, 08/26/25 10:31:00 EDT, Height/LengthDosing, 72.5, kg, 08/26/25 10:31:00 EDT, Weight Dosing magnesium oxide, 500 mg = 1 cap(s), Oral, Daily, 14 EA, 0 Refill(s), TAKE 1 CAPSULE BY MOUTH EVERY DAY, # 90 cap(s), Refills(s) 0, Pharmacy: [facility]/pharmacy #[id number], 178, cm, 08/26/25 10:31:00 EDT, Height/Length Dosing, 72.5, kg, 08/26/25 10:31:00 EDT, Weight Dosing Follow-up No qualifying data available Patient Education Hyponatremia, Zuwi-tr-Mnoi Problem List/Past Medical History Ongoing ASCVD (arteriosclerotic [...] Daily D3, See I (more content not included)...[facility] HospitalComment on above:Result Comment: Electronically Signed By: YANIQUE MCNEILL CNP\.br\Date and Time Signed: 08/26/25 12:06 EDTAmbulatory Visit Summaryon [id number] Visit SummaryAmbulatory Visit Summary DARIEL ZABALA :1940 Visit Date:07/25/2025 [...] Contact prescribing physician if questions or concerns amoxicillin-clavulanate (amoxicillin-clavulanate 500 mg-125 mg Tab) cholecalciferol (D3) cyanocobalamin [...] AM EDT With: YANIQUE MCNEILL CNP Where: [address] [phone] [phone] 8:00 AM EDT With: Where: [address] [address]- Medications What How Much When Why Instructions [...] disease BMI 23.0-23.9, adult Nonsmoker Natural Lemon [place] flavor Unchanged pravastatin (pravastatin 40 mg Tab) 1 Tablets By Mouth Every day Unchanged amoxicillin-clavulanate (amoxicillin-clavulanate 500 mg-125 mg Tab) 30 tab(s), 0 [...] abnormal nevi Erectile dysfuncti (more content not included)...[facility] HospitalFaleon[facility] Medicine Office/Clinic Noteon [phone] Medicine Office/Clinic NoteFamily Medicine Office/Clinic Note Chief Complaint Hospital F/U [...] health services, although they were ordered by [facility] to assist with gastrointestinal and genitourinary assessments, [...] (Z09: Encounter for follow-up examination after completed treatmentfor conditions other than malignant neoplasm) - Schedule [...] Nose, Release of trigger finger, Surgery. Medications amoxicillin-clavulanate 500 mg-125 mg Tab aspirin 81 mg [...] Tab meloxicam 7.5 mg (more content not included)...[facility] Comment on above:Result Comment: Electronically Signed By: YANIQUE MCNEILL CNP\Date and Time Signed: 07/25/25 11:58 EDTGlucose Poct Glucometerson 66-37-2737Oozvebq [Mass/Vol]137 mg/dLNoUNC Medical Center Physician GroupComment on above:Result Comment: Random Glucose Reference Range is dependent on time and content of last meal. Glucose of more than 200 mg/dL in a nonstressed, ambulatory subject supports the diagnosis of Diabetes Mellitus. PERFORMED BY: [place] [address] PATHOLOGIST BEAM DYER MARIAM WANG M.D.Performed By: #### CDT #### [place] [address] USACB W Auto Differential panel (Bld)on [id number] (Bld) [#/Vol]0 10*3/uL0.0 - 0.2 10*3/uLNOMS HealthcareBasophils/100 WBC Manual cnt (Syn fld)0.4 %.NOMS HealthcareEosinophils (Bld) [#/Vol]0.1 10*3/uL0.0 - 0.45 10*3/uLNOMS HealthcareEosinophils/100 WBC Manual cnt (Syn fld)2.2 %.[facility] CenterErythrocyte distribution width (RBC) [Ratio]13.6 %12.0 - 14.8 %[facility] HealthcareHematocrit (Bld) [Volume fraction]32.4 %Low38.8 - 50.0 %[facility] CenterHemoglobin (Bld) [Mass/Vol]11.2 g/dLLow13.0 - 17.0 g/dLAudrain Medical Center Interpretation and review of laboratory resultsAbnormalAudrain Medical Center Lymphocytes (Bld) [#/Vol]1.2 10*3/uL1.00 - 4.8 10*3/uLNOMS Healthcare Lymphocytes/100 WBC Manual cnt (Syn fld)16.8 %.[facility] Medical CenterMCH (RBC) [Entitic mass]31.5 pg27.5 - 35.2 pgLiberty HospitalHC (RBC) [Mass/Vol]34.4 g/dL32.5 - 35.6 g/dLLiberty HospitalV (RBC) [Entitic vol]91.5 fL83.5 - 101 fLAudrain Medical CenterMonocytes (Bld) [#/Vol]0.6 10*3/uL0.0 - 0.8 10*3/uLNOHI Healthcare Monocytes+Macrophages/100 WBC Manual cnt (Syn fld)8.3 %.[facility] Neutrophils (Bld) [#/Vol]5 10*3/uL1.8 - 7.7 10*3/uLNOHI Healthcare Neutrophils/100 WBC Manual cnt (Syn fld)72.3 %.[facility] HealthcareNRBC0.1 /100{WBC}0 - 0.5 /100{WBC}[facility] HealthcarePlatelet mean volume (Bld) [Entitic vol]8.8 fL6.6 - 10.1 fLACADIA HEALTHCARE HealthcarePlatelets (Bld) [#/Vol]157 10*3/uL150 - 450 10*3/uLNOBarnes-Jewish West County HospitalRBC LM.HPF (Urine sed) [#/Area]3.54 10*6/uLLow3.90 - 5.60 10*6/uLNOBarnes-Jewish West County HospitalWBC (Bld) [#/Vol]6.9 10*3/uL4.1 - 10.5 10*3/uLNOBarnes-Jewish West County HospitalWBC LM.HPF (Urine sed) [#/Area]6.9 [CFU]/mL4.1 - 10.5 [CFU]/mLNOMS [facility] HealthcareComplete Blood Count Auto Diffon [id number] (Bld) [#/Vol]0.0 10*3/uLNormal0.0-0.2The [facility] Health Physician GroupComment on above:Result Comment: PERFORMED BY: [address] [address] PATHOLOGIST BEAM DYER MARIAM WANG M.D.Performed By: #### CDT #### [place] [address] USABasophils/100 WBC (Bld)0.4 %Normal.The [facility] Health Physician GroupComment on above:Performed By: #### CDT #### [place] [address] USAEosinophils (Bld) [#/Vol]0.1 10*3/uLNormal0.0-0.45The [facility] Health Physician GroupComment on above:Performed By: #### CDT #### [place] [address] USAEosinophils/100 WBC (Bld)2.2 %Normal.The [facility] Health Physician GroupComment on above:Performed By: #### CDT #### [place] [address] USAErythrocyte distribution width (RBC) [Ratio]13.6 %Normal 12.0-14.8The [facility] Health Physician GroupComment on above:Performed By: #### CDT #### [place] [address] USAHematocrit (Bld) [Volume fraction]32.4 %Low38.8-50.0The [facility] Health Physician GroupComment on above:Performed By: #### CDT #### [place] [address] USAHemoglobin (Bld) [Mass/Vol]11.2 g/dLLow13.0-17.0The [facility] Health Physician GroupComment on above:Performed By: #### CDT #### [place] [address] USALymphocytes (Bld) [#/Vol]1.2 10*3/uLNormal1.00-4.8The [facility] Health Physician GroupComment on above:Performed By: #### CDT #### [place] [address] USALymphocytes/100 WBC (Bld)16.8 %Normal.The [facility] Health Physician GroupComment on above:Performed By: #### CDT #### [place] [address] USAMCH (RBC) [Entitic mass]31.5 dhFmrgnz95.5-35.2The [facility] Health Physician GroupComment on above:Performed By: #### CDT #### [address]V (RBC) [Entitic vol]91.5 oRFkcwbq33.5-101The [facility] Health Physician GroupComment on above:Performed By: #### CDT #### [place] [address] USAMean Corpuscular HGB Conc34.4 g/wHPaqhei96.5-35.6The [facility] Health Physician GroupComment on above:Performed By: #### CDT #### [place] [address] USAMonocytes (Bld) [#/Vol]0.6 10*3/uLNormal0.0-0.8The [facility] Health Physician GroupComment on above:Performed By: #### CDT #### [place] [address] USAMonocytes/100 WBC (Bld)8.3 %Normal.The [facility] Health Physician GroupComment on above:Performed By: #### CDT #### [place] [address] USANeutrophils (Bld) [#/Vol]5.0 10*3/uLNormal1.8-7.7The [facility] Health Physician GroupComment on above:Performed By: #### CDT #### [place] [address] USANeutrophils/100 WBC (Bld)72.3 %Normal.The [facility] Health Physician GroupComment on above:Performed By: #### CDT #### [place] [address] USANRBC%0.1 /100{WBC}Normal0-0.5The [facility] Comment on above:Performed By: #### CDT #### [place] [address] USAPlatelet mean volume (Bld) [Entitic vol]8.8 fLNormal 6.6-10.1The [facility] Health Physician GroupComment on above:Performed By: #### CDT #### [place] [address] USAPlatelets (Bld) [#/Vol]157 10*3/iASgogkq045-413Jic [facility] Physician GroupComment on above:Performed By: #### CDT #### [place] [address] USARBC (Bld) [#/Vol]3.54 10*6/uLLow3.90-5.60The [facility] Health Physician GroupComment on above:Performed By: #### CDT #### [place] [address] USAWBC (Bld) [#/Vol]6.9 10*3/uLNormal4.1-10.5The [facility] Health Physician GroupComment on above:Performed By: #### CDT #### [place] [address] USAWhite Blood Count6.9 [CFU]/mLNormal4.1-10.5The [facility] Physician GroupComment on above:Performed By: #### CDT #### [place] [address] USAComprehensive Metabolic Panelon 54-65-4681Beolnkq [Mass/Vol]3.4 g/dLLow3.5-5.7The [facility] Health Physician GroupComment on above:Order Comment: per erin gold arr 0851.Performed By: #### GLULS #### Point of Care testing ,Albumin/Globulin [Mass ratio]1.5 {ratio}NormalThe [facility] Physician [facility] Comment on above:Order Comment: per erin gold arr 0851.Performed By: #### GLULS #### Point of Care testing ,ALP [Catalytic activity/Vol]73 U/FEkzobd54-340Pxs [facility] Comment on above:Order Comment: per erin gold arr 0851.Performed By: #### GLULS #### Point of Care testing ,ALT [Catalytic activity/Vol]15 U/LNormal7-52The [facility] Comment on above:Order Comment: per erin gold arr 0851.Performed By: #### GLULS #### Point of Care testing ,Anion gap [Moles/Vol]6.6 mmol/LNormal6.0-15.0The [facility] Comment on above:Order Comment: per erin gold arr 0851.Performed By: #### GLULS #### Point of Care testing ,AST [Catalytic activity/Vol]22 U/LTrlezl87-11Ubu [facility] Comment on above:Order Comment: per erin gold arr 0851.Performed By: #### GLULS #### Point of Care testing ,Bilirubin [Mass/Vol]0.6 mg/dLNormal0.3-1.0The [facility] Physician GroupComment on above:Order Comment: per erin gold arr 0851.Performed By: #### GLULS #### Point of Care testing ,Calcium [Mass/Vol]8.5 mg/dLLow8.6-10.3The [facility] Physician GroupComment on above:Order Comment: per erin gold arr 0851.Performed By: #### GLULS #### Point of Care testing ,Chloride [Moles/Vol]101 mmol/OEcsevn19-512Xki [facility] Physician GroupComment on above:Order Comment: per erin gold arr 0851.Performed By: #### GLULS #### Point of Care testing ,CO2 [Moles/Vol]27.1 mmol/EOjrzad05.0-31.0The [facility] Health Physician GroupComment on above:Order Comment: per erin gold arr 0851.Performed By: #### GLULS #### Point of Care testing ,Creatinine [Mass/Vol]0.83 mg/dLNormal0.70-1.30The [facility] Comment on above:Order Comment: per erin gold arr 0851.Performed By: #### GLULS #### Point of Care testing ,Creatinine Clr Calc Jojnyybx18.82NoUNC Medical Center Physician GroupComment on above:Order Comment: per erin gold arr 0851.Result Comment: PERFORMED BY: [facility] [place] [address] PATHOLOGIST BEAM DYER MARIAM WANG M.D.Performed By: #### GLULS #### Point of Care testing ,GFR/1.73 sq M.predicted MDRD (S/P/Bld) [Vol rate/Area]mL/min/{1.73_m2}NormalThe [facility] Health Physician GroupComment on above:Order Comment: per erin gold arr 0851.Performed By: #### GLULS #### Point of Care testing ,Globulin (S) [Mass/Vol]2.3 g/dLNoUNC Medical Center Physician GroupComment on above:Order Comment: per erin gold arr 0851.Performed By: #### GLULS #### Point of Care testing ,Glucose [Mass/Vol]116 mg/yENfve67-352Qse [facility] Physician GroupComment on above:Order Comment: per erin gold arr 0851.Result Comment: Random Glucose Reference Range is dependent on time and content of last meal. Glucose of more than 200 mg/dL in a nonstressed, ambulatory subject supports the diagnosis of Diabetes Mellitus. ADA recommended reference rangePerformed By: #### GLULS #### Point of Care testing ,Potassium [Moles/Vol]3.7 mmol/LNormal3.5-5.1The [facility] Comment on above:Order Comment: per erin gold arr 0851.Performed By: #### GLULS #### Point of Care testing ,Protein [Mass/Vol]5.7 g/dLLow6.4-8.9The [facility] Physician GroupComment on above:Order Comment: per erin gold arr 0851.Performed By: #### GLULS #### Point of Care testing ,Sodium [Moles/Vol]131 mmol/XBpy748-194Hnc [facility] Physician GroupComment on above:Order Comment: per erin gold arr 0851.Performed By: #### GLULS #### Point of Care testing ,Urea nitrogen [Mass/Vol]12 mg/dLNormal7-25The [facility] Health Physician GroupComment on above:Order Comment: per erin esparza. arr 0851.Performed By: #### GLULS #### Point of Care testing ,Glucose Poct Glucometerson 27-10-1621Vyqxcyw [Mass/Vol]168 mg/dLNoUNC Medical Center Physician GroupComment on above:Result Comment: Random Glucose Reference Range is dependent on time and content of last meal. Glucose of more than 200 mg/dL in a nonstressed, ambulatory subject supports the diagnosis of Diabetes Mellitus. PERFORMED BY: [place] [address] PATHOLOGIST BEAM DYER MARIAM WANG M.D.Performed By: #### GLULS #### Point of Care testing ,Glucose [Mass/Vol]70 mg/dLNoUNC Medical Center Physician GroupComment on above: Result Comment: Random Glucose Reference Range is dependent on time and content of last meal. Glucose of more than 200 mg/dL in a nonstressed, ambulatory subject supports the diagnosis of Diabetes Mellitus. PERFORMED BY: [place] [address] PATHOLOGIST BEAM DYER MARIAM WANG M.D.Performed By: #### GLULS #### Point of Care testing ,Glucose [Mass/Vol]94 mg/dLNoUNC Medical Center Physician GroupComment on above: Result Comment: Random Glucose Reference Range is dependent on time and content of last meal. Glucose of more than 200 mg/dL in a nonstressed, ambulatory subject supports the diagnosis of Diabetes Mellitus. PERFORMED BY: [place] [address] PATHOLOGIST BEAM DYER AMRIAM WANG M.D.Performed By: #### CDT #### [place] [address] USAGlucose [Mass/Vol]86 mg/dLNoUNC Medical Center Physician GroupComment on above:Result Comment: Random Glucose Reference Range is dependent on time and content of last meal. Glucose of more than 200 mg/dL in a nonstressed, ambulatory subject supports the diagnosis of Diabetes Mellitus. PERFORMED BY: [place] [address] PATHOLOGIST BEAM DYER MARIAM WANG M.D.Performed By: #### CDT #### [facility] [address] [place] [address] USAGlucose [Mass/Vol]63 mg/dLNormalThLost Rivers [facility] Physician GroupComment on above:Result Comment: Random Glucose Reference Range is dependent on time and content of last meal. Glucose of more than 200 mg/dL in a nonstressed, ambulatory subject supports the diagnosis of Diabetes Mellitus. PERFORMED BY: [place] [id number] PATHOLOGIST BEAM DYER MARIAM WANG M.D.Performed By: #### GLULS #### Point of Care testing ,Vancomycin,Troughon 83-26-3369Ceogxgwrzu,Upxkps26.1Qqtyfv92.0-20.0The [facility] Physician GroupComment on above:Order Comment: > or = to 3 loose/watery stools in the last 24 HRS? Y Is patient on promotility agents or tube feeding? NResult Comment: Last dose: - PERFORMED BY: [address] [address] PATHOLOGIST BEAM DYER MARIAM WANG M.D.Performed By: #### CDT #### [address] [address] USAC-Reactive Proteinon 08-47-0247K-Reactive Jworghi28.1 mg/dLHigh0.0-0.5The [facility] Physician GroupComment on above:Result Comment: PERFORMED BY: [address] [address] PATHOLOGIST BEAM DYER MARIAM WANG M.D.Performed By: #### CDT #### [facility] [address] [place] [address] USACRP [Mass/Vol]on 98-38-4046H-REACTIVE RZEPEKB97.1 mg/dL High0.0 - 0.5 mg/dLNOHI HealthcareInterpretation and review of laboratory resultsAbnormalNOHI HealthcareNOMS HealthcareCT angio abdomen pelvison 81-60-6286RT angio abdomen pelvisUK [facility] [place] [address] [place] [address] CT Scan Report Signed Patient: Dariel Zabala MR#: [id number] 9 : 1940 Acct:[id number] Age/Sex: 85 / M ADM Date: 07/19/25 Loc: Room: [address] [place] [address] Type: ADM IN Attending Dr: Thalia Cervantes [...] of fluid partially visualized on today's study.] Peritoneum/Retroperitoneum:No free air free fluid or lymphadenopathy.[ Abd [...] Jr., D.O. 07/21/2025 1:05 PM Dictation Location: RADIO-PC-18 Transcribed By: [facility] 07/21/25 1305 Dictated By: Dariel Gooden Jr, DO 07/21/25 1258 Signed By: 07/21/25 1305[facility] Physician GroupComplete Blood Count Auto Diffon [id number] (Bld) [#/Vol]0.0 10*3/uLNormal0.0-0.2The [facility] Physician GroupComment on above:Result Comment: PERFORMED BY: [place] [address] PATHOLOGIST BEAM DYER MARIAM WANG M.D.Performed By: #### CMP, MG, CBC #### [facility] [address] [place] [address] USABasophils/100 WBC (Bld)0.4 %Normal.The [facility] Health Physician GroupComment on above:Performed By: #### CMP, MG, CBC #### [facility] [address] [place] [address] USAEosinophils (Bld) [#/Vol]0.1 10*3/uLNormal0.0-0.45The [facility] Health Physician GroupComment on above:Performed By: #### CMP, MG, CBC #### [facility] [address] [place] [address] USAEosinophils/100 WBC (Bld)1.8 %Normal.The [facility] Health Physician GroupComment on above:Performed By: #### CMP, MG, CBC #### [facility] [address] [place] [address] USAErythrocyte distribution width (RBC) [Ratio]13.9 %Normal 12.0-14.8The [facility] Health Physician GroupComment on above:Performed By: #### CMP, MG, CBC #### [place] [address] USAHematocrit (Bld) [Volume fraction]34.5 %Low38.8-50.0The [facility] Health Physician GroupComment on above:Performed By: #### CMP, MG, CBC #### [place] [address] USAHemoglobin (Bld) [Mass/Vol]12.1 g/dLLow13.0-17.0The [facility] Physician GroupComment on above:Performed By: #### CMP, MG, CBC #### [place] [address] USALymphocytes (Bld) [#/Vol]0.9 10*3/uLLow1.00-4.8The [facility] Health Physician GroupComment on above:Performed By: #### CMP, MG, CBC #### [place] [address] USALymphocytes/100 WBC (Bld)13.4 %Normal.The [facility] Health Physician GroupComment on above:Performed By: #### CMP, MG, CBC #### [place] [address] USAMCH (RBC) [Entitic mass]31.9 hwVacnxk89.5-35.2The [facility] Health Physician GroupComment on above:Performed By: #### CMP, MG, CBC #### [place] [address] USAMCV (RBC) [Entitic vol]91.1 yVMekqsv63.5-101The [facility] Health Physician GroupComment on above:Performed By: #### CMP, MG, CBC #### [place] [address] USAMean Corpuscular HGB Conc35.0 g/mHTpmrpd58.5-35.6The [facility] Physician GroupComment on above:Performed By: #### CMP, MG, CBC #### [place] [address] USAMonocytes (Bld) [#/Vol]0.5 10*3/uLNormal0.0-0.8The [facility] Physician GroupComment on above:Performed By: #### CMP, MG, CBC #### [place] [address] USAMonocytes/100 WBC (Bld)7.1 %Normal.The [facility] Health Physician GroupComment on above:Performed By: #### CMP, MG, CBC #### [place] [address] USANeutrophils (Bld) [#/Vol]5.0 10*3/uLNormal1.8-7.7The [facility] Health Physician GroupComment on above:Performed By: #### CMP, MG, CBC #### [place] [address] USANeutrophils/100 WBC (Bld)77.3 %Normal.The [facility] Health Physician GroupComment on above:Performed By: #### CMP, MG, CBC #### [place] [address] USANRBC%0.1 /100{WBC}Normal0-0.5The [facility] Comment on above:Performed By: #### CMP, MG, CBC #### [place] [address] USAPlatelet mean volume (Bld) [Entitic vol]8.9 fLNormal 6.6-10.1The [facility] Physician GroupComment on above:Performed By: #### CMP, MG, CBC #### [place] [address] USAPlatelets (Bld) [#/Vol]136 10*3/vNGhy198-420Kix [facility] Physician GroupComment on above:Performed By: #### CMP, MG, CBC #### [place] [address] USARBC (Bld) [#/Vol]3.79 10*6/uLLow3.90-5.60The [facility] Physician GroupComment on above:Performed By: #### CMP, MG, CBC #### [facility] [address] [place] [address] USAWBC (Bld) [#/Vol]6.5 10*3/uLNormal4.1-10.5The [facility] Physician GroupComment on above:Performed By: #### CMP, MG, CBC #### [facility] [address] [place] [address] USAWhite Blood Count6.5 [CFU]/mLNormal4.1-10.5The [facility] Health Physician GroupComment on above:Performed By: #### CMP, MG, CBC #### [facility] [address] [place] [address] USAComprehensive Metabolic Panelon 96-60-4135Uslnzye [Mass/Vol]3.4 g/dLLow3.5-5.7The [facility] Physician GroupComment on above: Performed By: #### CMP, MG, CBC #### [facility] [address] [place] [address] USAAlbumin/Globulin [Mass ratio]1.4 {ratio}NormalThe [facility] Health Physician GroupComment on above:Performed By: #### CMP, MG, CBC #### [facility] [address] [place] [address] USAALP [Catalytic activity/Vol]62 U/YFdyqlo61-165Mdl [facility] Physician GroupComment on above:Performed By: #### CMP, MG, CBC #### [facility] [address] [place] [address] USAALT [Catalytic activity/Vol]10 U/LNormal7-52The [facility] Physician GroupComment on above:Performed By: #### CMP, MG, CBC #### [facility] [address] [place] [address] USAAnion gap [Moles/Vol]7.7 mmol/LNormal6.0-15.0The [facility] Physician GroupComment on above:Performed By: #### CMP, MG, CBC #### [facility] [address] [place] [address] USAAST [Catalytic activity/Vol]14 U/BQhyade99-75Wim [facility] Physician GroupComment on above:Performed By: #### CMP, MG, CBC #### [facility] [address] [place] [address] USABilirubin [Mass/Vol]1.1 mg/dLHigh0.3-1.0The [facility] Physician GroupComment on above:Performed By: #### CMP, MG, CBC #### [facility] [address] [place] [address] USACalcium [Mass/Vol]8.4 mg/dLLow8.6-10.3The [facility] Physician GroupComment on above:Performed By: #### CMP, MG, CBC #### [facility] [address] [place] [address] USAChloride [Moles/Vol]102 mmol/QLirhci12-971Eqr [facility] Physician GroupComment on above:Performed By: #### CMP, MG, CBC #### [facility] [address] [place] [address] USACO2 [Moles/Vol]26.2 mmol/DEakqjg42.0-31.0The [facility] Physician GroupComment on above:Performed By: #### CMP, MG, CBC #### [facility] [address] [place] [address] USACreatinine [Mass/Vol]0.88 mg/dLNormal0.70-1.30The [facility] Physician GroupComment on above:Performed By: #### CMP, MG, CBC #### [facility] [address] [place] [address] USACreatinine Clr Calc Vbrqiuad37.74NormalThe [facility] Health Physician GroupComment on above:Performed By: #### CMP, MG, CBC #### [facility] [address] [place] [address] USAGFR/1.73 sq M.predicted MDRD (S/P/Bld) [Vol rate/Area] mL/min/{1.73_m2}NormalThe [facility] Physician GroupComment on above:Performed By: #### CMP, MG, CBC #### [facility] [address] [place] [address] USAGlobulin (S) [Mass/Vol]2.5 g/dLNormalThe [facility] Physician GroupComment on above:Performed By: #### CMP, MG, CBC #### [facility] [address] [place] [address] USAGlucose [Mass/Vol]92 mg/vPOdmfmu71-166Abo [facility] Physician GroupComment on above:Result Comment: Random Glucose Reference Range is dependent on time and content of last meal. Glucose of more than 200 mg/dL in a nonstressed, ambulatory subject supports the diagnosis of Diabetes Mellitus. ADA recommended reference rangePerformed By: #### CMP, MG, CBC #### [facility] [address] [place] [address] USAPotassium [Moles/Vol]3.9 mmol/LNormal3.5-5.1The Ecu Health Physician GroupComment on above:Performed By: #### CMP, MG, CBC #### [facility] [address] [place] [address] USAProtein [Mass/Vol]5.9 g/dLLow6.4-8.9The Ecu Health Physician GroupComment on above:Performed By: #### CMP, MG, CBC #### [facility] [address] [place] [address] USASodium [Moles/Vol]132 mmol/SOxe592-361Ehc Ecu Health Physician GroupComment on above:Performed By: #### CMP, MG, CBC #### [facility] [address] [place] [address] USAUrea nitrogen [Mass/Vol]12 mg/dLNormal7-25The Ecu Health Physician GroupComment on above:Performed By: #### CMP, MG, CBC #### [facility] [address] [place] [address] USAGlucose Poct Glucometerson 80-95-0416Pwuhfpc [Mass/Vol]70 mg/dLNoMemorial Health System Marietta Memorial Hospitale Ecu Health Physician GroupComment on above:Result Comment: Random Glucose Reference Range is dependent on time and content of last meal. Glucose of more than 200 mg/dL in a nonstressed, ambulatory subject supports the diagnosis of Diabetes Mellitus. PERFORMED BY: [place] [address] PATHOLOGIST BEAM DYER MARIAM WANG M.D.Performed By: #### CDT #### [facility] [address] [place] [address] USAGlucose [Mass/Vol]131 mg/dLNoUNC Medical Center Physician GroupComment on above:Result Comment: Random Glucose Reference Range is dependent on time and content of last meal. Glucose of more than 200 mg/dL in a nonstressed, ambulatory subject supports the diagnosis of Diabetes Mellitus. PERFORMED BY: [place] [address] PATHOLOGIST BEAM DYER MARIAM WANG M.D.Performed By: #### VANCP #### [place] [address] USAGlucose [Mass/Vol]152 mg/dLNormNCH Healthcare System - North Naples Physician GroupComment on above:Result Comment: Random Glucose Reference Range is dependent on time and content of last meal. Glucose of more than 200 mg/dL in a nonstressed, ambulatory subject supports the diagnosis of Diabetes Mellitus. PERFORMED BY: [place] [address] PATHOLOGIST BEAM DYER MARIAM WANG M.D.Performed By: #### GLULS #### Point of Care testing ,Glucose [Mass/Vol]89 mg/dLCommunity Hospital Physician Noxubee General HospitalComment on above: Result Comment: Random Glucose Reference Range is dependent on time and content of last meal. Glucose of more than 200 mg/dL in a nonstressed, ambulatory subject supports the diagnosis of Diabetes Mellitus. PERFORMED BY: [place] [id number] PATHOLOGIST BEAM DYER MARIAM WANG M.D.Performed By: #### GLULS #### Point of Care testing ,Magnesiumon 52-08-9711Uvbmiamws [Mass/Vol]1.9 mg/dLNormal1.9-2.7The Ecu Health Physician GroupComment on above:Result Comment: PERFORMED BY: [place] [address] PATHOLOGIST BEAM DYER MARIAM WANG M.D.Performed By: #### CMP, MG, CBC #### [facility] [address] [place] [address] USAVancomycin,Peakon 54-13-8849Przrxzimrr,Peak23.0Normal 20.0-40.0The Ecu Health Physician GroupComment on above:Order Comment: > or = to 3 loose/watery stools in the last 24 HRS? Y Is patient on promotility agents or tube feeding? NResult Comment: Last dose: - PERFORMED BY: [place] [address] PATHOLOGIST BEAM DYER MARIAM WANG M.D.Performed By: #### CDT #### [place] [address] USAVancomycin,Peak18.4Low20.0-40.0The Ecu Health Physician GroupComment on above:Order Comment: Comment ?DRAW 1 HOUR AFTER INFUSION COMPLETES Date of last dose?: [id number] Time of last dose?: 199Result Comment: Last dose: - PERFORMED BY: [place] [address] PATHOLOGIST BEAM DYER MARIAM WANG M.D.Performed By: #### VANCP #### [place] [address] USAC-Reactive Proteinon 96-76-7890R-Reactive Izqrkvb11.5 mg/dLHigh0.0-0.5The [facility]cu Health Physician GroupComment on above:Result Comment: PERFORMED BY: [place] [address] PATHOLOGIST BEAM DYER MARIAM WANG M.D.Performed By: #### VANCP #### [place] [address] USAClostridium Difficileon 42-75-9110Mromjrnmfuj Difficile NegativeNormalNegativeThe Ecu Health Physician GroupComment on above:Order Comment: > or = to 3 loose/watery stools in the last 24 HRS? Y Is patient on promotility agents or tube feeding? NResult Comment: Testing performed by RT-PCR PERFORMED BY: [place] [address] PATHOLOGIST BEAM DYER MARIAM WANG M.D.Performed By: #### CDT #### [place] [id number] USACoagulation Profileon 62-60-0008wRBF Coag (Bld) [Time]34.7 zNtdwzp35.1-36.5The Ecu Health Physician GroupComment on above:Result Comment: A hematocrit value greater than 55% may lead to inaccurate results in coagulation testing. Patients having hematocrit values >55% require a special collection tube for coagulation studies. Please contact the laboratory at [phone] for redraw instructions. PERFORMED BY: [place] [address] PATHOLOGIST BEAM DYER MARIAM WANG M.D.Performed By: #### VANCP #### [place] [address] USAINR Coag (PPP) [Relative time]1.5 {INR}NormalThe Ecu Health Physician GroupComment on above:Result Comment: INR Therapeutic Range A) Pre- and [...] patients with mechanical heart valves: 3 - 4.5Performed By: #### VANCP #### [place] [id number] USAPT Coag (PPP) [Time]16.6 sHigh9.0-12.9The Ecu Health Physician GroupComment on above:Result Comment: A hematocrit value greater than 55% may lead to inaccurate results in coagulation testing. Patients having hematocrit values >55% require a special collection tube for coagulation studies. Please contact the laboratory at [phone] for redraw instructions.Performed By: #### VANCP #### [place] [address] USAComplete Blood Count Auto Diffon 97-49-3635Ruxqtzlzm (Bld) [#/Vol]0.0 10*3/uLNormal0.0-0.2The [facility]cu Health Physician GroupComment on above: Performed By: #### VANCP #### [place] [address] USABasophils/100 WBC (Bld)0.3 %Normal.The Ecu Health Physician GroupComment on above:Performed By: #### VANCP #### [place] [address] USAEosinophils (Bld) [#/Vol]0.0 10*3/uLNormal0.0-0.45The Ecu Health Physician GroupComment on above:Performed By: #### VANCP #### [place] [address] USAEosinophils/100 WBC (Bld)0.3 %Normal.The Ecu Health Physician GroupComment on above:Performed By: #### VANCP #### [place] [address] USAErythrocyte distribution width (RBC) [Ratio]13.9 %Normal 12.0-14.8The Ecu Health Physician GroupComment on above:Performed By: #### VANCP #### [place] [address] USAHematocrit (Bld) [Volume fraction]36.3 %Low38.8-50.0The Ecu Health Physician GroupComment on above:Performed By: #### VANCP #### [place] [address] USAHemoglobin (Bld) [Mass/Vol]12.6 g/dLLow13.0-17.0The Ecu Health Physician GroupComment on above:Performed By: #### VANCP #### [place] [address] USALymphocytes (Bld) [#/Vol]0.9 10*3/uLLow1.00-4.8The Ecu Health Physician GroupComment on above:Performed By: #### VANCP #### [facility] [address] [place] [address] USALymphocytes/100 WBC (Bld)9.4 %Normal.The Ecu Health Physician GroupComment on above:Performed By: #### VANCP #### [facility] [address] [place] [address] USAMCH (RBC) [Entitic mass]31.9 ukOhakvc51.5-35.2The Ecu Health Physician GroupComment on above:Performed By: #### VANCP #### [facility] [address] [place] [address] USAMCV (RBC) [Entitic vol]91.8 cCHrnjwq62.5-101The Ecu Health Physician GroupComment on above:Performed By: #### VANCP #### [place] [address] USAMean Corpuscular HGB Conc34.8 g/xZGacuql94.5-35.6The Ecu Health Physician GroupComment on above:Performed By: #### VANCP #### [facility] [address] [place] [address] USAMonocytes (Bld) [#/Vol]0.5 10*3/uLNormal0.0-0.8The Ecu Health Physician GroupComment on above:Performed By: #### VANCP #### [address] [address] USAMonocytes/100 WBC (Bld)5.6 %Normal.The Ecu Health Physician GroupComment on above:Performed By: #### VANCP #### [facility] [address] [place] [address] USANeutrophils (Bld) [#/Vol]7.9 10*3/uLHigh1.8-7.7The Ecu Health Physician GroupComment on above:Performed By: #### VANCP #### [address] [address] USANeutrophils/100 WBC (Bld)84.4 %Normal.The Ecu Health Physician GroupComment on above:Performed By: #### VANCP #### [facility] [address] [place] [address] USANRBC%0.1 /100{WBC}Normal0-0.5The [facility] Group Comment on above:Performed By: #### VANCP #### [place] [address] USAPlatelet mean volume (Bld) [Entitic vol]9.3 fLNormal 6.6-10.1The [facility] Health Physician GroupComment on above:Performed By: #### VANCP #### [place] [address] USAPlatelets (Bld) [#/Vol]138 10*3/cYXsi635-233Rjs Ecu Health Physician GroupComment on above:Performed By: #### VANCP #### [place] [address] USARBC (Bld) [#/Vol]3.96 10*6/uLNormal3.90-5.60The Ecu Health Physician GroupComment on above:Performed By: #### VANCP #### [place] [address] USAWBC (Bld) [#/Vol]9.3 10*3/uLNormal4.1-10.5The Ecu Health Physician GroupComment on above:Performed By: #### VANCP #### [place] [address] USAWhite Blood Count9.3 [CFU]/mLNormal4.1-10.5The [facility]cu Health Physician GroupComment on above:Performed By: #### VANCP #### [place] [address] USAComprehensive Metabolic Panelon 85-09-8824Cbubpur [Mass/Vol]3.6 g/dLNormal3.5-5.7The [facility]cu Health Physician GroupComment on above: Performed By: #### VANCP #### [place] [address] USAAlbumin/Globulin [Mass ratio]1.6 {ratio}NormalThe Ecu Health Physician GroupComment on above:Performed By: #### VANCP #### [facility] [address] [place] [address] USAALP [Catalytic activity/Vol]69 U/QJavekr61-510Vzf Ecu Health Physician GroupComment on above:Performed By: #### VANCP #### [facility] [address] [place] [address] USAALT [Catalytic activity/Vol]12 U/LNormal7-52The Ecu Health Physician GroupComment on above:Performed By: #### VANCP #### [facility] [address] [place] [address] USAAnion gap [Moles/Vol]10.3 mmol/LNormal6.0-15.0The Ecu Health Physician GroupComment on above:Performed By: #### VANCP #### [place] [address] USAAST [Catalytic activity/Vol]17 U/TDxugij23-82Sek Ecu Health Physician GroupComment on above:Performed By: #### VANCP #### [place] [address] USABilirubin [Mass/Vol]1.5 mg/dLHigh0.3-1.0The Ecu Health Physician GroupComment on above:Result Comment: Samples from patients who have taken Naproxen have shown spurious elevation in Total Bilirubin levels. A metabolite of Naproxen, O-desmethylnaproxen, has been shown to interfere with the Jensintiaik-Grof method for measuring Total Bilirubin.Performed By: #### VANCP #### [place] [address] USACalcium [Mass/Vol]8.7 mg/dLNormal8.6-10.3The [facility] Health Physician GroupComment on above:Performed By: #### VANCP #### [place] [address] USAChloride [Moles/Vol]100 mmol/VAvzgam86-475Ovn [facility]cu Health Physician GroupComment on above:Performed By: #### VANCP #### [place] [address] USACO2 [Moles/Vol]27.2 mmol/WEkrrug30.0-31.0The [facility] Health Physician GroupComment on above:Performed By: #### VANCP #### [place] [address] USACreatinine [Mass/Vol]0.88 mg/dLNormal0.70-1.30The [facility] Health Physician GroupComment on above:Performed By: #### VANCP #### [place] [address] USACreatinine Clr Calc Uwccpybn72.65NormNCH Healthcare System - North Naples Physician GroupComment on above:Performed By: #### VANCP #### [place] [address] USAGFR/1.73 sq M.predicted MDRD (S/P/Bld) [Vol rate/Area] mL/min/{1.73_m2}NormalThe Ecu Health Physician GroupComment on above:Performed By: #### VANCP #### [place] [address] USAGlobulin (S) [Mass/Vol]2.3 g/dLNormMercy Health Allen Hospitale Ecu Health Physician GroupComment on above:Performed By: #### VANCP #### [place] [address] USAGlucose [Mass/Vol]115 mg/wPBjvm86-119Zoh Ecu Health Physician GroupComment on above:Result Comment: Random Glucose Reference Range is dependent on time and content of last meal. Glucose of more than 200 mg/dL in a nonstressed, ambulatory subject supports the diagnosis of Diabetes Mellitus. ADA recommended reference rangePerformed By: #### VANCP #### [place] [address] USAPotassium [Moles/Vol]4.5 mmol/LNormal3.5-5.1The [facility] Health Physician GroupComment on above:Performed By: #### VANCP #### [place] [address] USAProtein [Mass/Vol]5.9 g/dLLow6.4-8.9The [facility] Health Physician GroupComment on above:Performed By: #### VANCP #### [facility] [address] [place] [address] USASodium [Moles/Vol]133 mmol/WXlf959-493Kps Ecu Health Physician GroupComment on above:Performed By: #### VANCP #### [facility] [address] [place] [address] USAUrea nitrogen [Mass/Vol]11 mg/dLNormal7-25The [facility] Health Physician GroupComment on above:Performed By: #### VANCP #### [facility] [address] [place] [address] USAECH echo transthoracicon 89-65-1761TJW echo transthoracic [facility] [place] [address] [place] [address] Echocardiogram Signed Patient: Dariel Zabala MR#: [id number] 9 : 1940 Acct:[id number] Age/Sex: 85 / M ADM Date: 07/19/25 Loc: Room: [address] [place] [address] Type: ADM IN Attending Dr: Thalia Cervantes [...] 44.8 ml/m2 + + + + + + + : Electronically : : signed by: Darwin : : : : Chase : : Bettie : : : : : : on: 07/21/2025, : : : : 3:48 PM : + +- (more content not included)...NormalThe Chestnut Hill HospitalErythrocyte Sedimentation Rateon 64-32-3196HUO (Bld) [Velocity]16 mm/hNormal0-19The [facility] Hill HospitalComment on above:Result Comment: PERFORMED BY: [address] [address] PATHOLOGIST BEAM DYER MARIAM WANG M.D.Performed By: #### GLULS #### Point of Care testing ,Glucose Poct Glucometerson 32-42-5141Paxszqc [Mass/Vol]171 mg/dLNoBarney Children's Medical CenterComment on above:Result Comment: Random Glucose Reference Range is dependent on time and content of last meal. Glucose of more than 200 mg/dL in a nonstressed, ambulatory subject supports the diagnosis of Diabetes Mellitus. PERFORMED BY: [address] [address] PATHOLOGIST BEAM DYER MARIAM WANG M.D.Performed By: #### GLULS #### Point of Care testing ,Glucose [Mass/Vol]81 mg/dLNoUNC Medical Center Physician Noxubee General HospitalComment on above: Result Comment: Random Glucose Reference Range is dependent on time and content of last meal. Glucose of more than 200 mg/dL in a nonstressed, ambulatory subject supports the diagnosis of Diabetes Mellitus. PERFORMED BY: [place] [address] PATHOLOGIST BEAM DYER MARIAM WANG M.D.Performed By: #### VANCP #### [place] [address] USAGlucose [Mass/Vol]184 mg/dLNoUNC Medical Center Physician GroupComment on above:Result Comment: Random Glucose Reference Range is dependent on time and content of last meal. Glucose of more than 200 mg/dL in a nonstressed, ambulatory subject supports the diagnosis of Diabetes Mellitus. PERFORMED BY: [place] [address] PATHOLOGIST BEAM DYER MARIAM WANG M.D.Performed By: #### VANCP #### [place] [address] USAGlucose [Mass/Vol]115 mg/dLNormNCH Healthcare System - North Naples Physician GroupComment on above:Result Comment: Random Glucose Reference Range is dependent on time and content of last meal. Glucose of more than 200 mg/dL in a nonstressed, ambulatory subject supports the diagnosis of Diabetes Mellitus. PERFORMED BY: [place] [address] PATHOLOGIST BEAM DYER MARIAM WANG M.D.Performed By: #### VANCP #### [place] [address] USAMagnesiumon 39-65-5468Lsneyumbq [Mass/Vol]1.7 mg/dLLow 1.9-2.7The [facility] Health Physician GroupComment on above:Performed By: #### VANCP #### [place] [address] USAA1C with Estimated Average Gluon 72-80-6430Imjdbts [Mass/Vol]131 mg/dLNoUNC Medical Center Physician GroupComment on above:Result Comment: PERFORMED BY: [place] [address] PATHOLOGIST BEAM DYER MARIAM WANG M.D.Performed By: #### VANCP #### [address] [place] [address] ZGDDmG6a (Bld) [Mass fraction]6.2 %High4.3-5.6The Ecu Health Physician GroupComment on above:Result Comment: Increased risk for diabetes: 5.7 - 6.4 diabetes: >6.4 glycemic control for adults with diabetes: <7.0Performed By: #### VANCP #### [facility] [address] [place] [id number] USAGlucose Poct Glucometerson 38-81-7106Cakfekj [Mass/Vol]112 mg/dLNormalThe [facility] Health Physician GroupComment on above:Result Comment: Random Glucose Reference Range is dependent on time and content of last meal. Glucose of more than 200 mg/dL in a nonstressed, ambulatory subject supports the diagnosis of Diabetes Mellitus. PERFORMED BY: [facility] [address] [facility] [place]. [place] [id number] PATHOLOGIST BEAM DYER MARIAM WANG M.D.Performed By: #### GLULS #### Point of Care testing ,Population [facility] 32-83-8974EhjabvnoplLifecare Hospital of Pittsburgh Case Information Case Priority: None Programs: -- Referral Source: Accounts Payable Lead Referral Reason: Care coordination Case Type: Transition [...] the discharge care he is receiving. No issuesor concerns at this time. Pt. does not do his vitals at home. Communication Events Date: July 17, 2025 Method: Phone call Type: Outbound Duration (min): 7 Outcome: Case discussion Contact Type: ad operations coordinator Contact Name: Ania Crews Notes: See [...] for return call. Created By: Alec Rodrigez RNDetwiler Memorial Hospitalodiumon 07-12-2025 Sodium [Moles/Vol]131 mmol/UBwx940-014IqasvsSheltering Arms HospitalComment on above:Performed By: #### [id number] #### Will [facility] [address] [place], [place] [address]Wsbpydvwxb Visit Summaryon 40-87-2592Xuwvowwmej Visit Summary Ambulatory Visit Summary DARIEL ZABALA [...] AM EDT With: YANIQUE MCNEILL CNP Where: [address] [id number]- [id number] 8:00 AM EDT With: Where: [address] [phone]- Medications What How Much When Why Instructions [...] Mouth Every day TAKE 1 TABLET DAILY Contactprescribing physician if questions or concerns Unchanged midodrine (midodrine 5 mg Tab) 3 times a day 5 Unknown, oral, 0 Refill(s), Take 1 tablet (5 mg total) by mouth 3 (three) times a day for 30 days. Contact prescribing physician if questions or concerns Unchanged Non-Formulary Medication (Ure-Na) See instructions Hyponatremia DM type 2 causing vascular disease BMI 23.0-23.9, adult Nonsmoker Natural Lemon [place] flavor Contact prescribing physician if questions or [...] as needed for Prop (more content not included)...[facility] Medicine Office/Clinic Noteon 68-01-0064Xllqhk Medicine Office/Clinic NoteFami Medicine Office/Clinic Note Chief Complaint TCM visit The patient presents for medication management and sodium level evaluation[facility]. Hospital: [facility] Admission date: 06/17/25 Discharge date: 06/23/25 Symptoms the patient presented with: CVA & Low Sodium Current concerns: Concerned with medications. History of Present Illness 85-year-old male presenting with his for a TCM appointment following discharge from the [place]. He is here for sodium level evaluation [...] no food allergies, no recurrent infections, no impairedimmunity Additional ROS info: Except as noted in [...] qualifying data available Patient Education Stroke Prevention, Zieq-za-Svhy Problem List/Past Medical History Ongoing ASCVD (arteriosclerotic [...] omeprazole 40 mg Cap-DR, (more content not included)...[facility]y HospitalComment on above:Result Comment: Electronically Signed By: YANIQUE MCNEILL CNP\.br\Date and Time Signed: 07/11/25 15:05 [facility] 32-01-5347VuxwusvproLifecare Hospital of Pittsburgh Case Information Case Priority: None Programs: -- Referral Source: Accounts Payable Lead Referral Reason: Care coordination Case Type: Transition [...] to bed at 2100, get up around 6507-4730, sleep through the night Are you having [...] Patient advised to bring to TCM follow up.Patient was admitted to [facility] for CVA and low sodium [...] palpitations or CP. Patient does not monitor BPor HR at home. Denies any nose bleeds. Patient states overall 'everything is good.' (more content not included)...[facility] Medicine Office/Clinic Noteon 39-00-4410Sdclyk Medicine Office/Clinic NoteFaleonard morse hospital Medicine Office/Clinic Note Chief Complaint Discuss Medications [...] and is currently under transitional care. A patient care provider is expected to contact the patient to [...] No qualifying data available Patient Education Hyponatremia, Zgmb-eb-Iywl Problem List/Past Medical History Ongoing ASCVD (arteriosclerotic [...] 03/31/2015 Recorded influenza virus vaccine, inactivated 08/02/2014 RecordedCorey HospitalComment on above:Result Comment: Electronically Signed By: YANIQUE MCNEILL CNP\Date and Time Signed: 07/04/25 14:55 EDTBasic Metabolic Panel on 59-93-5073Tdbsh gap [Moles/Vol]7 mmol/L5 - 15 mmol/[facility] Calcium [Mass/Vol]9.9 mg/dL8.5 - 10.5 mg/dLProMarymount Hospital SystemChloride [Moles/Vol]95 mmol/LLow98 - 109 mmol/[facility] RexoMedica Health SystemCO2 [Moles/Vol]31 mmol/L22 - 32 mmol/LProMedica Health SystemCreatinine [Mass/Vol]0.8 mg/dL0.60 - 1.30 mg/dLCincinnati VA Medical Center SystemComment on above:METHOD TRACEABLE TO IDHI STANDARDEGFR Non-Race Hgrzihjyc96- Johnston Memorial HospitalComment on above: Reported eGFR is based on the CKD-EPI 2020 equation that does not use a race coefficient. Glucose [Mass/Vol]101 mg/yZMada30 - 99 mg/dLProMarymount Hospital SystemPotassium [Moles/Vol]4.5 mmol/L3.5 - 5.0 mmol/LProMedica Health SystemSodium [Moles/Vol] 133 mmol/OGox361 - 146 mmol/[facility] Brownsvilleica Health SystemUrea nitrogen [Mass/Vol]29 mg/dLHigh5 - 27 mg/dLCleveland Clinic Marymount HospitalCBC auto differentialon 06-23-2025 Basophils (Bld) [#/Vol]0.1 10*3/uL0.0 - 0.2 10*3/[facility] Basophils/100 WBC (Bld)1.5 %[facility] HospitalDifferential cell count method Nom (Bld)AUTOMATED DIFFERENTIALCleveland Clinic Marymount HospitalEosinophils (Bld) [#/Vol]0.1 10*3/uL0.0 - 0.4 10*3/uLCleveland Clinic Marymount HospitalEosinophils/100 WBC (Bld)3 %[facility] Marymount HospitalErythrocyte distribution width (RBC) [Ratio]13.8 %11.5 - 15 %[facility] HospitalHematocrit (Bld) [Volume fraction]40 %39 - 50 %[facility] Mary[facility] HospitalHemoglobin (Bld) [Mass/Vol]13.8 g/dL13 - 17 g/dL [facility] Mary[facility] HospitalLymphocytes (Bld) [#/Vol]1.5 10*3/uL1.0 - 3.5 10*3/uL [facility] HospitalLymphocytes/100 WBC (Bld)34.7 %[facility] Marymount HospitalMCH (RBC) [Entitic mass]31.3 pg27 - 34 [facility] HospitalMCHC (RBC) [Mass/Vol]34.5 g/dL32 - 36 g/dLCleveland Clinic Marymount HospitalMCV (RBC) [Entitic vol]91 fL80 - 100 [facility] HospitalMonocytes (Bld) [#/Vol]0.4 10*3/uL0.0 - 0.9 10*3/[facility] HospitalMonocytes/100 WBC (Bld)10.2 %[facility] HospitalNeutrophils (Bld) [#/Vol]2.1 10*3/uL1.5 - 6.6 10*3/uLCleveland Clinic Marymount HospitalNeutrophils/100 WBC (Bld)50.6 %[facility] HospitalPlatelet mean volume (Bld) [Entitic vol]9.5 fL7 - 12 [facility]'s HospitalPlatelets (Bld) [#/Vol]234 10*3/uLCleveland Clinic Marymount HospitalRBC (Bld) [#/Vol]4.4 10*6/[facility] HospitalWBC LM Ql (Sput)4.2PWellSpan [facility] ECG 12 Leadon 22-80-8225OJFEZUCAFNUKPMNvnMukxnp Health SystemElectrolyte panelon 21-59-1491Mqvvj gap [Moles/Vol]10 mmol/L5 - 15 mmol/[facility] Chloride [Moles/Vol]96 mmol/LLow98 - 109 mmol/LProMedica Health SystemCO2 [Moles/Vol]27 mmol/L22 - 32 mmol/LPrPremier Health Upper Valley Medical Center SystemInterpretation and review of laboratory resultsAbnoUNC Health NashPotassium [Moles/Vol] 4.2 mmol/L3.5 - 5.0 mmol/LProMedhuntsville hospital system Health SystemSodium [Moles/Vol]133 mmol/LLow 134 - 146 mmol/LPrUniversity of Wisconsin Hospital and Clinics SystemIonized calciumon 57-37-3960Exhijgq.ionized ISE [Moles/Vol]5.1 mg/dL4.5 - 5.3 mg/dLCleveland Clinic Marymount HospitalInterpretation and review of laboratory resultsNoMercy Fitzgerald HospitalMagnesiumon 92-97-7743Frrdrrdix [Mass/Vol] 1.6 mg/dLLow1.8 - 2.6 mg/dLCleveland Clinic Marymount HospitalNo Panel Informationon 54-82-5975Gjqwpjaopdgnjq and review of laboratory resultsAbNew Lifecare Hospitals of PGH - SuburbanPhosphoruson 19-54-4196Bekeofdhstjcig and review of laboratory resultsNoUNC Health NashPhosphate [Mass/Vol]3.5 mg/dL2.4 - 4.9 mg/dLCleveland Clinic Marymount HospitalProtime & INROrdered By: Lucy Branham on 72-68-3501BRJ Coag (Platelet poor plasma or blood) [Relative time]2.8High0.9 - 1.2PSamaritan North Health CenterInterpretation and review of laboratory results AbnormalCleveland Clinic Marymount HospitalPT Coag (PPP) [Time]32.1 sHigThomas Jefferson University HospitalAnti XA unfractionated heparinOrdered By: Mindy Conklin on 50-73-6574Stebzhm unfractionated Chromogenic method Qn (PPP)0.56 [facility] HospitalComment on above:Optimal time for testing is 6 hrs post dosage This test is specific for monitoring patients on UFH, and is not recommended for use with other Anti-Xa medications. Interpretation and review of laboratory resultsNoUNC Health Nash Basic Metabolic Panelon 26-36-7731Gfssx gap [Moles/Vol]8 mmol/L5 - 15 mmol/L [facility] HospitalCalcium [Mass/Vol]9.1 mg/dL8.5 - 10.5 mg/dLCleveland Clinic Marymount HospitalChloride [Moles/Vol]93 mmol/LLow98 - 109 mmol/[facility] SystemCO2 [Moles/Vol]26 mmol/L22 - 32 mmol/[facility] SystemCreatinine [Mass/Vol]0.76 mg/dL0.60 - 1.30 mg/dLCleveland Clinic Marymount HospitalComment on above: METHOD TRACEABLE TO IDHI STANDARDEGFR Non-Race Ovlpcutcp23- [facility] HospitalComment on above:Reported eGFR is based on the CKD-EPI 2020 equation that does not use a race coefficient. Glucose [Mass/Vol]135 mg/qTIswo13 - 99 mg/dLCleveland Clinic Marymount Hospital Interpretation and review of laboratory resultsAbnoUNC Health Nash Potassium [Moles/Vol]4.3 mmol/L3.5 - 5.0 mmol/[facility] SystemSodium [Moles/Vol]127 mmol/VNok687 - 146 mmol/[facility] SystemUrea nitrogen [Mass/Vol]35 mg/dLHigh5 - 27 mg/dLWellSpan Chambersburg Hospital CBC auto differentialon 12-87-8439Gdgwqbndj (Bld) [#/Vol]0.1 10*3/uL0.0 - 0.2 10*3/uLCleveland Clinic Marymount HospitalBasophils/100 WBC (Bld)1.3 %[facility] HospitalDifferential cell count method Nom (Bld)AUTOMATED DIFFERENTIALCleveland Clinic Marymount HospitalEosinophils (Bld) [#/Vol]0.1 10*3/uL0.0 - 0.4 10*3/uLCleveland Clinic Marymount HospitalEosinophils/100 WBC (Bld)2 %[facility] HospitalErythrocyte distribution width (RBC) [Ratio]13.5 %11.5 - 15 %[facility] Hematocrit (Bld) [Volume fraction]36.3 %Low39 - 50 %[facility] Hemoglobin (Bld) [Mass/Vol]12.5 g/dLLow13 - 17 g/dLCleveland Clinic Marymount Hospital Interpretation and review of laboratory resultsAbnoUNC Health Nash Lymphocytes (Bld) [#/Vol]1.5 10*3/uL1.0 - 3.5 10*3/[facility] Lymphocytes/100 WBC (Bld)26.9 %[facility] HospitalH (RBC) [Entitic mass] 31.2 pg27 - 34 pgPSamaritan North Health CenterMCHC (RBC) [Mass/Vol]34.4 g/dL32 - 36 g/dLCleveland Clinic Marymount HospitalMCV (RBC) [Entitic vol]91 fL80 - 100 [facility] HospitalMonocytes (Bld) [#/Vol]0.7 10*3/uL0.0 - 0.9 10*3/uLCleveland Clinic Marymount HospitalMonocytes/100 WBC (Bld)12.2 %[facility] HospitalNeutrophils (Bld) [#/Vol]3.3 10*3/uL1.5 - 6.6 10*3/[facility] HospitalNeutrophils/100 WBC (Bld)57.6 %[facility] HospitalPlatelet mean volume (Bld) [Entitic vol]9.8 fL 7 - 12 [facility] HospitalPlatelets (Bld) [#/Vol]212 10*3/[facility] HospitalRBC (Bld) [#/Vol]4 10*6/[facility] HospitalWBC LM Ql (Sput)5.6WellSpan Chambersburg HospitalElectrolyte panelon 12-73-3346Tqpku gap [Moles/Vol]8 mmol/L5 - 15 mmol/[facility] Chloride [Moles/Vol]93 mmol/LLow98 - 109 mmol/[facility] HospitalCO2 [Moles/Vol]28 mmol/L22 - 32 mmol/[facility] Health SystemInterpretation and review of laboratory resultsAbnoUNC Health NashPotassium [Moles/Vol] 4.4 mmol/L3.5 - 5.0 mmol/LProMedica Health SystemSodium [Moles/Vol]129 mmol/LLow 134 - 146 mmol/LProMedica [facility] SystemProMarymount Hospital SystemAnion gap [Moles/Vol]7 mmol/L5 - 15 mmol/LPrPremier Health Upper Valley Medical Center SystemChloride [Moles/Vol]94 mmol/LLow98 - 109 mmol/LProMedica Health SystemCO2 [Moles/Vol]28 mmol/L22 - 32 mmol/LProMedica Health SystemInterpretation and review of laboratory results AbnormalCleveland Clinic Marymount HospitalPotassium [Moles/Vol]4.4 mmol/L3.5 - 5.0 mmol/L ProMedicEly-Bloomenson Community Hospital SystemSodium [Moles/Vol]129 mmol/HEmq096 - 146 mmol/LPrRusk Rehabilitation Centerica Mer[facility] Hospital Northwest ArkansasLavender Topon 86-16-3649Fiimu TubeAuto ResultedWellSpan Chambersburg HospitalNo Panel Informationon 98-56-5878FhuQxsdbxCleveland Clinic Marymount HospitalProtime & INRon 02-52-9390NNX Coag (Platelet poor plasma or blood) [Relative time]1.8High0.9 - 1.2PSamaritan North Health Center Interpretation and review of laboratory resultsAbSt. Joseph's Hospital Health CenterPT Coag (PPP) [Time]19.[address] [facility] Medical CenterAnti XA unfractionated heparin on 33-83-9769Cbhgbhj unfractionated Chromogenic method Qn (PPP)0.37C[facility] HospitalComment on above:Optimal time for testing is 6 hrs post dosage This test is specific for monitoring patients on UFH, and is not recommended for use with other Anti-Xa medications. Interpretation and review of laboratory resultsNoHoward Young Medical CenterHeparin unfractionated Chromogenic method Qn (PPP)0.65 [facility] HospitalComment on above:Optimal time for testing is 6 hrs post dosage This test is specific for monitoring patients on UFH, and is not recommended for use with other Anti-Xa medications. Interpretation and review of laboratory resultsNoUNC Health Nash Basic Metabolic Panelon 84-07-3825Jokia gap [Moles/Vol]9 mmol/L5 - 15 mmol/L [facility] HospitalCalcium [Mass/Vol]9 mg/dL8.5 - 10.5 mg/dLCleveland Clinic Marymount HospitalChloride [Moles/Vol]93 mmol/LLow98 - 109 mmol/[facility] SystemCO2 [Moles/Vol]25 mmol/L22 - 32 mmol/[facility] SystemCreatinine [Mass/Vol] 0.72 mg/dL0.60 - 1.30 mg/dLCleveland Clinic Marymount HospitalComment on above:METHOD TRACEABLE TO IDHI STANDARDEGFR Non-Race Dependent- [facility] Comment on above:Reported eGFR is based on the CKD-EPI 2020 equation that does not use a race coefficient. Glucose [Mass/Vol]121 mg/rJXhlt69 - 99 mg/dLCleveland Clinic Marymount Hospital Interpretation and review of laboratory resultsAbnormalC[facility] Clinic [facility] Hospital Potassium [Moles/Vol]4.5 mmol/L3.5 - 5.0 mmol/[facility] SystemSodium [Moles/Vol]127 mmol/KSuc150 - 146 mmol/[facility] HospitalUrea nitrogen [Mass/Vol]25 mg/dL5 - 27 mg/dLWellSpan Chambersburg HospitalC- reactive proteinon 36-99-7687QCG [Mass/Vol]8.9 mg/dLHighNINF - 0.7 mg/dL [facility] HospitalInterpretation and review of laboratory resultsAbnormal [facility] HospitalCBC auto differentialon 65-02-4320Ydmbyfimf (Bld) [#/Vol] 0.1 10*3/uL0.0 - 0.2 10*3/uLCleveland Clinic Marymount HospitalBasophils/100 WBC (Bld)1.1 % [facility] HospitalDifferential cell count method Nom (Bld)AUTOMATED DIFFERENTIALCleveland Clinic Marymount HospitalEosinophils (Bld) [#/Vol]0 10*3/uL0.0 - 0.4 10*3/uLCleveland Clinic Marymount HospitalEosinophils/100 WBC (Bld)0.9 %[facility] HospitalErythrocyte distribution width (RBC) [Ratio]13.8 %11.5 - 15 %[facility] HospitalHematocrit (Bld) [Volume fraction]40.7 %39 - 50 %[facility] HospitalHemoglobin (Bld) [Mass/Vol]14.1 g/dL13 - 17 g/dLCleveland Clinic Marymount Hospital Lymphocytes (Bld) [#/Vol]1.5 10*3/uL1.0 - 3.5 10*3/uLCleveland Clinic Marymount Hospital Lymphocytes/100 WBC (Bld)28.5 %[facility] HospitalH (RBC) [Entitic mass] 30.9 pg27 - 34 pgPSamaritan North Health CenterMCHC (RBC) [Mass/Vol]34.7 g/dL32 - 36 g/dLCleveland Clinic Marymount HospitalMCV (RBC) [Entitic vol]89 fL80 - 100 [facility] HospitalMonocytes (Bld) [#/Vol]0.6 10*3/uL0.0 - 0.9 10*3/uLCleveland Clinic Marymount HospitalMonocytes/100 WBC (Bld)12 %[facility] HospitalNeutrophils (Bld) [#/Vol]3 10*3/uL1.5 - 6.6 10*3/uLCleveland Clinic Marymount HospitalNeutrophils/100 WBC (Bld)57.5 %[facility] HospitalPlatelet mean volume (Bld) [Entitic vol]9.7 fL 7 - 12 [facility] HospitalPlatelets (Bld) [#/Vol]189 10*3/[facility] HospitalRBC (Bld) [#/Vol]4.56 10*6/[facility] HospitalWBC LM Ql (Sput)5.3PWellSpan Ephrata Community HospitalCK Totalon 80-75-8907ZT [Catalytic activity/Vol]26 U/L24 - 195 U/LProMedBethesda North HospitalInterpretation and review of laboratory resultsNormalCleveland Clinic Marymount HospitalCT Head WO contrast on 06-21-2025 Examination: Noncontrast brain CT Date of Exam:06/21/2025 [...] by Esau Restrepo MD on 06/21/2025 10:56 AMSEsau Bernal MD - 06/21/[address] [...] Esau Restrepo MD on 06/21/2025 10:56 AM [facility] ColumbusMekitec [facility] HospitalRadiology Study observation (narrative)[facility] ColumbusMekitec SystemCT Head WO contrastOrdered By: Esau Restrepo on 64-45-3658KrbFikads [facility] System Work Phone: Electrolyte panelon 74-35-7024Slyuh gap [Moles/Vol]8 mmol/L5 - 15 mmol/LProMedica Health SystemChloride [Moles/Vol]92 mmol/LLow98 - 109 mmol/LProMedica Health SystemCO2 [Moles/Vol]26 mmol/L22 - 32 mmol/LProMedica Health SystemInterpretation and review of laboratory resultsAbnormalProMedica [facility] SystemPotassium [Moles/Vol]4.8 mmol/L3.5 - 5.0 mmol/LProMedica Health SystemSodium [Moles/Vol]126 mmol/KOsd158 - 146 mmol/LProMedica Health System ProMedica Health SystemAnion gap [Moles/Vol]9 mmol/L5 - 15 mmol/LProMedica Health SystemChloride [Moles/Vol]93 mmol/LLow98 - 109 mmol/LProMedica Health SystemCO2 [Moles/Vol]25 mmol/L22 - 32 mmol/LProMedica Health System Interpretation and review of laboratory resultsAbnormLancaster Rehabilitation Hospital System Potassium [Moles/Vol]4.4 mmol/L3.5 - 5.0 mmol/LProMedica Health SystemSodium [Moles/Vol]127 mmol/JGwi980 - 146 mmol/LProMedica Health SystemProMedica Health SystemAnion gap [Moles/Vol]9 mmol/L5 - 15 mmol/LProMedica Health SystemChloride [Moles/Vol]90 mmol/LLow98 - 109 mmol/LProMedica Health SystemCO2 [Moles/Vol]25 mmol/L22 - 32 mmol/LProMedica Health SystemInterpretation and review of laboratory resultsAbnormLancaster Rehabilitation Hospital SystemPotassium [Moles/Vol]4.6 mmol/L 3.5 - 5.0 mmol/LProMedica Health SystemSodium [Moles/Vol]124 mmol/JEsf068 - 146 mmol/LProMedica Health SystemProMedica Health SystemErythrocyte Sedimentation Rate (ESR)on 43-82-8645BNG (Bld) [Velocity]46 mm/hHigh0 - 20 mm/[facility] Systemica Health SystemInterpretation and review of laboratory resultsAbnoVeterans Affairs Pittsburgh Healthcare System SystemCincinnati [facility] Center SystemGas panel (BldV)on 60-21-9931Afgqhceg patency Wrist artery --pre arterial punctureN/AProWilson Healthca Health SystemBase excess Calc (Bld) [Moles/Vol]2 mmol/L0.0 - 2.0 mmol/[facility] Brownsvilleica Health SystemCO2 (BldV) [Partial pressure]51.8 mm[Hg]HighCincinnati VA Medical Center SystemHCO3 (Bld) [Moles/Vol]28.7 mmol/LHigh20.0 - 24.0 mmol/LProMedica Health System Interpretation and review of laboratory resultsAbnormLancaster Rehabilitation Hospital System Oxygen (BldV) [Partial pressure]29 mm[Hg]LowProElmore Community Hospital Health SystemOxygen therapy source and amount [CARE]Room AirProMediOhioHealth Nelsonville Health Center SystemOxygen/Inspired gas setting [Volume Fraction] Pfnqqlwscg02 %[facility] HospitalpH (BldV) 7.351 [pH]7.320 - 7.420C[facility] Fear Valley Bladen County HospitalaO2% Calculated from oxygen partial pressure (BldV) [Mass fraction]50 %[facility] Hospitalpecimen site NarrativeN/AProSt. Vincent Hospitalpecimen type Nom (Spec)VENOUSWellSpan Chambersburg HospitalNo Panel Informationon 23-01-2739CsdUqpfvtWellSpan Chambersburg HospitalProtime & INRon 56-37-9653QJM Coag (Platelet poor plasma or blood) [Relative time]1.6High0.9 - 1.2PSamaritan North Health Center Interpretation and review of laboratory resultsAbnoUNC Health NashPT Coag (PPP) [Time]17.7 sHigPremier Health Atrium Medical CenterAnti XA unfractionated heparin on 96-56-7024Rtynjzn unfractionated Chromogenic method Qn (PPP)0.62[facility] HospitalComment on above:Optimal time for testing is 6 hrs post dosage This test is specific for monitoring patients on UFH, and is not recommended for use with other Anti-Xa medications. Interpretation and review of laboratory resultsNoUNC Health Nash Basic Metabolic Panelon 88-93-4830Bfbff gap [Moles/Vol]8 mmol/L5 - 15 mmol/L [facility] HospitalCalcium [Mass/Vol]9 mg/dL8.5 - 10.5 mg/dLCleveland Clinic Marymount HospitalChloride [Moles/Vol]89 mmol/LLow98 - 109 mmol/[facility] HospitalCO2 [Moles/Vol]27 mmol/L22 - 32 mmol/[facility] HospitalCreatinine [Mass/Vol] 0.73 mg/dL0.60 - 1.30 mg/dLCleveland Clinic Marymount HospitalComment on above:METHOD TRACEABLE TO IDMS STANDARDEGFR Non-Race Otsrvcspb13- [facility] Comment on above:Reported eGFR is based on the CKD-EPI 2020 equation that does not use a race coefficient. Glucose [Mass/Vol]98 mg/dL65 - 99 mg/dLCleveland Clinic Marymount HospitalPotassium [Moles/Vol]4.3 mmol/L3.5 - 5.0 mmol/[facility] SystemSodium [Moles/Vol] 124 mmol/XQnz557 - 146 mmol/LProMedSt. Anthony's Hospital SystemUrea nitrogen [Mass/Vol]12 mg/dL5 - 27 mg/dLCleveland Clinic Marymount HospitalCBC auto differentialon 06-20-2025 Basophils (Bld) [#/Vol]0.1 10*3/uL0.0 - 0.2 10*3/uLCleveland Clinic [facility] Hospital Basophils/100 WBC (Bld)1 %[facility] HospitalDifferential cell count method Nom (Bld)AUTOMATED DIFFERENTIALCleveland Clinic Marymount HospitalEosinophils (Bld) [#/Vol] 0.1 10*3/uL0.0 - 0.4 10*3/uLCleveland Clinic Marymount HospitalEosinophils/100 WBC (Bld)1.2 %[facility] HospitalErythrocyte distribution width (RBC) [Ratio]13.8 %11.5 - 15 %[facility] HospitalHematocrit (Bld) [Volume fraction]38.1 %Low39 - 50 % [facility] HospitalHemoglobin (Bld) [Mass/Vol]13.3 g/dL13 - 17 g/dLCleveland Clinic Marymount HospitalInterpretation and review of laboratory resultsAbnormalCleveland Clinic Marymount HospitalLymphocytes (Bld) [#/Vol]1.5 10*3/uL1.0 - 3.5 10*3/uLCleveland Clinic Marymount HospitalLymphocytes/100 WBC (Bld)22.4 %[facility] HospitalH (RBC) [Entitic mass]31.3 pg27 - 34 [facility] HospitalMCHC (RBC) [Mass/Vol]34.9 g/dL32 - 36 g/dLCleveland Clinic Marymount HospitalMCV (RBC) [Entitic vol]90 fL80 - 100 fL [facility] HospitalMonocytes (Bld) [#/Vol]0.7 10*3/uL0.0 - 0.9 10*3/uL [facility] HospitalMonocytes/100 WBC (Bld)10.7 %[facility] Neutrophils (Bld) [#/Vol]4.2 10*3/uL1.5 - 6.6 10*3/uLCleveland Clinic [facility] Hospital Neutrophils/100 WBC (Bld)64.7 %ProMed[facility] Health SystemPlatelet mean volume (Bld) [Entitic vol]9.5 fL7 - 12 fLPLafayette General Southwestica Health SystemPlatelets (Bld) [#/Vol]204 10*3/uLProWilson Healthca Health SystemRBC (Bld) [#/Vol]4.25 10*6/uLProMedica Health SystemWBC LM Ql (Sput)6.5PChillicothe Hospital SystemCincinnati [facility] System DISCONTINUE IN PROCESS EEG TESTINGOrdered By: Documentation Systemgenerated on 57-58-6973KmzBqkvuh Health System Work Phone: Electrolyte panelon 25-04-5747Mxlmv gap [Moles/Vol]8 mmol/L5 - 15 mmol/LProMedica Health SystemChloride [Moles/Vol]90 mmol/LLow98 - 109 mmol/LProMedica Health SystemCO2 [Moles/Vol]24 mmol/L22 - 32 mmol/LProMedica Health SystemInterpretation and review of laboratory resultsAbnormalProMedica Health SystemPotassium [Moles/Vol]4.8 mmol/L3.5 - 5.0 mmol/LProMedica Health SystemSodium [Moles/Vol]122 mmol/VQwh217 - 146 mmol/LProMedica Health System ProMedica Health SystemAnion gap [Moles/Vol]8 mmol/L5 - 15 mmol/LProMedica Health SystemChloride [Moles/Vol]90 mmol/LLow98 - 109 mmol/LProMedica Health SystemCO2 [Moles/Vol]24 mmol/L22 - 32 mmol/LProMedica Health System Interpretation and review of laboratory resultsAbnormalMarietta Osteopathic Clinicca Health System Potassium [Moles/Vol]4.6 mmol/L3.5 - 5.0 mmol/LProMedica Health SystemSodium [Moles/Vol]122 mmol/UVuo233 - 146 mmol/LProMedica Health SystemProMedica Health SystemAnion gap [Moles/Vol]8 mmol/L5 - 15 mmol/LProMedica Health SystemChloride [Moles/Vol]90 mmol/LLow98 - 109 mmol/LProMedica Health SystemCO2 [Moles/Vol]24 mmol/L22 - 32 mmol/LProMedica Health SystemInterpretation and review of laboratory resultsAbnormalNortheastern Vermont Regional HospitalMedica Health SystemPotassium [Moles/Vol]4.3 mmol/L 3.5 - 5.0 mmol/LProMedica Health SystemSodium [Moles/Vol]122 mmol/CXnw720 - 146 mmol/LProMedRegional Hospital of ScrantonHolter monitor studyon 44-91-8052Xpimhe from the original result were not included. Continuous video EEG monitoring study Date of Report: 06/20/2025 History: This is a n 85 yo man with altered mental status, concern for seizures. Procedure: Start: 20:37 06/19/2025 End: 06:30 06/20/2025 This is a standard [facility] EEG monitoring report using scalp and [...] or primary neurological disorders. Yaquelin Esparza MD Engineer First Assistant Neurology/Neurophysiology [employer] MANUALLY TRANSCRIBED RESULTSCleveland Clinic Marymount HospitalLavender Topon 06-20-2025 Extra TubeAuto ResultedWellSpan Chambersburg HospitalNo Panel Informationon 60-50-2588IdxOyriid Health SystemInterpretation and review of laboratory resultsAbnoMercy Fitzgerald Hospital Osmolality, urineOrdered By: Dixon Rodriguez on 63-59-2598Dbmhcnfofmgwky and review of laboratory resultsNoUNC Health NashOsmolality (U) [Osmolality]565 mosm/kgWellSpan Chambersburg HospitalProtime & INRon 60-29-0545LNK Coag (Platelet poor plasma or blood) [Relative time]1.3High 0.9 - 1.2PSamaritan North Health CenterPT Coag (PPP) [Time]15 [facility] Hospitalodium, urine, randomon 76-37-1092Eifcif (U) [Moles/Vol]64 mmol/LPrProMedica Memorial HospitalThyroid profile includes TSH FT4on 84-56-4124Znte T4 [Mass/Vol] 1.13 ng/dL0.61 - 1.60 ng/dLCleveland Clinic Marymount HospitalInterpretation and review of laboratory resultsAbnoUNC Health NashTSH Qn4.83 m[IU]/LHighWellSpan Chambersburg HospitalUric acidon 48-05-1249Dkxsznaporepqh and review of laboratory resultsNoUNC Health NashUrate [Mass/Vol]4.4 mg/dL2.6 - 7.2 mg/dLWellSpan Chambersburg HospitalUrine Creatinine,randomon 44-84-2652Sayjwiefvu (U) [Mass/Vol]150.26 mg/dLCleveland Clinic Marymount HospitalAnti XA unfractionated heparinon 41-23-7255Ykkvvgp unfractionated Chromogenic method Qn (PPP)0.64C[facility] HospitalComment on above:Optimal time for testing is 6 hrs post dosage This test is specific for monitoring patients on UFH, and is not recommended for use with other Anti-Xa medications. Interpretation and review of laboratory resultsNoHoward Young Medical CenterAnti XA unfractionated heparinOrdered By: Barbra Howell on 03-29-5021Cvylvuc unfractionated Chromogenic method Qn (PPP)0.6[facility] HospitalComment on above:Optimal time for testing is 6 hrs post dosage This test is specific for monitoring patients on UFH, and is not recommended for use with other Anti-Xa medications. Interpretation and review of laboratory resultsNoHoward Young Medical CenterBasic Metabolic Panelon 24-56-7430Jpkyw gap [Moles/Vol]9 mmol/L5 - 15 mmol/LProMedica Health SystemCalcium [Mass/Vol]8.8 mg/dL8.5 - 10.5 mg/dLCleveland Clinic Marymount HospitalChloride [Moles/Vol]88 mmol/LLow98 - 109 mmol/L [facility] HospitalCO2 [Moles/Vol]26 mmol/L22 - 32 mmol/LProMedica Health SystemCreatinine [Mass/Vol]0.73 mg/dL0.60 - 1.30 mg/dLCleveland Clinic Mary[facility] Hospital Comment on above:METHOD TRACEABLE TO IDHI STANDARDEGFR Non-Race Hycfszjjr26- [facility] HospitalComment on above:Reported eGFR is based on the CKD-EPI 2020 equation that does not use a race coefficient. Glucose [Mass/Vol]104 mg/dXQdbu55 - 99 mg/dLCleveland Clinic [facility] Interpretation and review of laboratory resultsAbnormalC[facility] Potassium [Moles/Vol]4.3 mmol/L3.5 - 5.0 mmol/[facility] Healthodium [Moles/Vol]123 mmol/ICic818 - 146 mmol/[facility]UM[facility] Community HospitalUrea nitrogen [Mass/Vol]10 mg/dL5 - 27 mg/dLCleveland Clinic Marymount HospitalCBC auto differentialon 95-42-3459Vrmxpgrrs (Bld) [#/Vol]0.1 10*3/uL0.0 - 0.2 10*3/uLCleveland Clinic Marymount HospitalBasophils/100 WBC (Bld)0.7 %[facility] HospitalDifferential cell count method Nom (Bld)AUTOMATED DIFFERENTIALCleveland Clinic Marymount HospitalEosinophils (Bld) [#/Vol]0.1 10*3/uL0.0 - 0.4 10*3/uLCleveland Clinic Marymount HospitalEosinophils/100 WBC (Bld)1.1 %[facility] HospitalErythrocyte distribution width (RBC) [Ratio] 13.5 %11.5 - 15 %[facility] HospitalHematocrit (Bld) [Volume fraction]38.7 % Low39 - 50 %[facility] HospitalHemoglobin (Bld) [Mass/Vol]13.4 g/dL13 - 17 g/dLCleveland Clinic Marymount HospitalInterpretation and review of laboratory results AbnormalCleveland Clinic Marymount HospitalLymphocytes (Bld) [#/Vol]1.3 10*3/uL1.0 - 3.5 10*3/uLCleveland Clinic Marymount HospitalLymphocytes/100 WBC (Bld)16 %[facility] HospitalMCH (RBC) [Entitic mass]31.1 pg27 - 34 [facility] HospitalMCHC (RBC) [Mass/Vol]34.6 g/dL32 - 36 g/dLCleveland Clinic Marymount HospitalMCV (RBC) [Entitic vol]90 fL80 - 100 [facility] HospitalMonocytes (Bld) [#/Vol]1 10*3/uLHigh0.0 - 0.9 10*3/uLCleveland Clinic Marymount HospitalMonocytes/100 WBC (Bld)12.6 %[facility] HospitalNeutrophils (Bld) [#/Vol]5.5 10*3/uL1.5 - 6.6 10*3/uLCleveland Clinic Marymount HospitalNeutrophils/100 WBC (Bld)69.6 %[facility] HospitalPlatelet mean volume (Bld) [Entitic vol]8.8 fL7 - 12 [facility] HospitalPlatelets (Bld) [#/Vol]200 10*3/uLCleveland Clinic Marymount HospitalRBC (Bld) [#/Vol]4.31 10*6/[facility] HospitalWBC LM Ql (Sput)7.9[facility] Cardiac echo study ProcedureOrdered By: Abel Gross on 67-28-0709Fbn. RA yvcgrokr77qeYiKphAeijng Health System Work Phone: [facility] Work Phone: Cardiac echo study Procedureon 31-26-7750Ymca Ventricle: Left ventricle appears normal in size. [...] size. There is mild increased wall thickness/hypertrophy. Systolicfunction is mildly to moderately decreased with an ejection fraction of 40-45%. See wall score diagram for wall motion abnormalities. Diastolic function assessment is indeterminate. Right Ventricle Right ventricular size is mildly dilated. Systolic function is low normal. Normal tricuspid annularplane systolic excursion. Left Atrium Left atrium volume [...] The left ventricular wall motion is globally hypokinetic.XCELERARadiology Study observation (narrative)[facility] TouchPal SystemElectrolyte panelon 06-19-2025 Anion gap [Moles/Vol]7 mmol/L5 - 15 mmol/LProMedica Health SystemChloride [Moles/Vol]89 mmol/LLow98 - 109 mmol/LProMedica Health SystemCO2 [Moles/Vol]24 mmol/L22 - 32 mmol/LProMedica Health SystemInterpretation and review of laboratory resultsAbnormalProMedica Health SystemPotassium [Moles/Vol]4.7 mmol/L 3.5 - 5.0 mmol/LProMedica Health SystemSodium [Moles/Vol]120 mmol/IYfy272 - 146 mmol/LProMedica Health SystemProMedica Health SystemMagnesiumon 06-19-2025 Interpretation and review of laboratory resultsNormalCincinnati VA Medical Center System Magnesium [Mass/Vol]2.3 mg/dL1.8 - 2.6 mg/dLProWilson Healthca TouchPal SystemNo Panel Informationon 49-83-2856FxwEwjnzd TouchPal SystemUS Carotid arteries - bilateralon 48-45-0882Vlufb: Plaque with no significant ICA spectral Doppler [...] hours at the phone number beside their name.PM Abel Wu MD - 06/19/2025 Right: Plaque with no [...] at the phone number beside their name. [facility] HospitalRadiology Study observation (narrative)[facility] TouchPal [facility] HospitalUS Carotid arteries - bilateralOrdered By: Abel Ballesteros on 06-19-2025 [facility] [employer] [facility] Work Phone: APTTon [id number] Coag (PPP) [Time]29 [facility]igh HospitalInterpretation and review of laboratory resultsNoMercy Fitzgerald HospitalAnti XA unfractionated heparinon 06-18-2025 Heparin unfractionated Chromogenic method Qn (PPP)0.26LowCleveland Clinic Marymount Hospital Comment on above:Optimal time for testing is 6 hrs post dosage This test is specific for monitoring patients on UFH, and is not recommended for use with other Anti-Xa medications. Interpretation and review of laboratory resultsAbnoHoward Young Medical CenterBasic Metabolic Panelon 25-85-8753Iokqw gap [Moles/Vol]10 mmol/L5 - 15 mmol/LProMedica Health SystemCalcium [Mass/Vol]9.1 mg/dL8.5 - 10.5 mg/dLCleveland Clinic Marymount HospitalChloride [Moles/Vol]93 mmol/LLow98 - 109 mmol/L [facility] HospitalCO2 [Moles/Vol]24 mmol/L22 - 32 mmol/LProMedica Health SystemCreatinine [Mass/Vol]0.71 mg/dL0.60 - 1.30 mg/dLCleveland Clinic Marymount Hospital Comment on above:METHOD TRACEABLE TO IDMS STANDARDEGFR Non-Race Dependent- PINF [facility] HospitalComment on above:Reported eGFR is based on the CKD-EPI 2020 equation that does not use a race coefficient. Glucose [Mass/Vol]81 mg/dL65 - 99 mg/dLCleveland Clinic Marymount HospitalInterpretation and review of laboratory resultsAbnormalCleveland Clinic Marymount HospitalPotassium [Moles/Vol]4.3 mmol/L3.5 - 5.0 mmol/LProMedhuntsville hospital system Health SystemSodium [Moles/Vol] 127 mmol/FZej326 - 146 mmol/LPrPremier Health Upper Valley Medical Center SystemUrea nitrogen [Mass/Vol]10 mg/dL5 - 27 mg/dLCleveland Clinic Marymount HospitalBedside Glucose *Place/Obtain serum glucose if >500 per glucometer.on 83-53-3129Gacuxmp [Mass/Vol]154 mg/tZByxv12 - 99 mg/dLCleveland Clinic Marymount HospitalInterpretation and review of laboratory results AbnormalWellSpan Chambersburg HospitalCBC auto differentialon 50-82-7378Pysmiwjle (Bld) [#/Vol]0.1 10*3/uL0.0 - 0.2 10*3/uLCleveland Clinic Marymount HospitalBasophils/100 WBC (Bld)1.5 %[facility] HospitalDifferential cell count method Nom (Bld)AUTOMATED DIFFERENTIALCleveland Clinic Marymount HospitalEosinophils (Bld) [#/Vol]0.2 10*3/uL0.0 - 0.4 10*3/uLCleveland Clinic Marymount HospitalEosinophils/100 WBC (Bld)3.7 %[facility] HospitalErythrocyte distribution width (RBC) [Ratio] 13.3 %11.5 - 15 %[facility] HospitalHematocrit (Bld) [Volume fraction]36 % Low39 - 50 %[facility] HospitalHemoglobin (Bld) [Mass/Vol]12.7 g/dLLow13 - 17 g/dLCleveland Clinic Marymount HospitalInterpretation and review of laboratory results AbnormalCleveland Clinic Marymount HospitalLymphocytes (Bld) [#/Vol]1.2 10*3/uL1.0 - 3.5 10*3/uLCleveland Clinic Marymount HospitalLymphocytes/100 WBC (Bld)22.7 %[facility] HospitalMCH (RBC) [Entitic mass]31.5 pg27 - 34 pgPSamaritan North Health CenterMCHC (RBC) [Mass/Vol]35.4 g/dL32 - 36 g/dLProCleveland Clinic Marymount HospitalMCV (RBC) [Entitic vol]89 fL80 - 100 [facility] HospitalMonocytes (Bld) [#/Vol]0.6 10*3/uL0.0 - 0.9 10*3/uLCleveland Clinic Marymount HospitalMonocytes/100 WBC (Bld)11.6 %[facility] HospitalNeutrophils (Bld) [#/Vol]3.3 10*3/uL1.5 - 6.6 10*3/uLCleveland Clinic Marymount HospitalNeutrophils/100 WBC (Bld)60.5 %[facility] HospitalPlatelet mean volume (Bld) [Entitic vol]9.5 fL7 - 12 [facility] HospitalPlatelets (Bld) [#/Vol]251 10*3/uLCleveland Clinic Marymount HospitalRBC (Bld) [#/Vol]4.05 10*6/uLLow [facility] HospitalWBC LM Ql (Sput)5.4WellSpan Chambersburg HospitalEEGon 22-21-3105Abvxgo from the original result were not included. [...] or primary neurological disorders. Yaquelin Esparza MD Engineer First Assistant Neurology/Neurophysiology [employer] MANUALLY TRANSCRIBED RESULTSEEGOrdered By: Yaquelin Esparza on 44-72-2033OtlOepyhrCleveland Clinic Marymount Hospital Work Phone: Hemoglobinon 73-48-9098Mpwmdlglzq (Bld) [Mass/Vol]13.9 g/dL13 - 17 g/dLCleveland Clinic Marymount HospitalHemoglobin A1con 82-02-0501Wjkkgpz glucose Estimated from glycated hemoglobin (Bld) [Mass/Vol]117 mg/dLCleveland Clinic Marymount HospitalHbA1c (Bld) [Mass fraction]5.7 %High4.4 - 5.6 %[facility] HospitalComment on above:ADA Guidelines Result HgbA1c Normal : less than 5.7 % Prediabetes : 5.7 % to 6.4 % Diabetes : > 6.4 % Use with caution in patients with abnormal hemoglobin variants as the half-life of red blood cells and in vivo glycation rates are affected. Interpretation and review of laboratory resultsAbnoHoward Young Medical CenterLipid profileon 93-16-7508Pqtkabrnpeu [Mass/Vol]150 mg/dL 150 - 200 mg/dLCleveland Clinic Marymount HospitalCholesterol in HDL [Mass/Vol]41 mg/dL39 - PINF mg/dLCleveland Clinic Marymount HospitalComment on above:HDL <40 mg/dL - High Risk HDL > or = 40mg/dL- Desirable HDL >60 mg/dL - Negative Risk Cholesterol in HDL [Mass/Vol]3.7 mg/dL1.0 - 5.0[facility] Cholesterol in LDL [Mass/Vol]95 mg/dLNINF - 130 mg/dLCleveland Clinic Marymount Hospital Comment on above:LDL <100 mg/dL - Desirable LDL >160 mg/dL - High Risk Cholesterol in VLDL [Mass/Vol]14 mg/dL0 - 30 mg/dLCleveland Clinic Mary[facility] Hospital Interpretation and review of laboratory resultsNoUNC Health Nash Triglyceride [Mass/Vol]70 mg/dL27 - 150 mg/dLCleveland Clinic Marymount HospitalMR Brain WO contraston 27-64-1345XZZVQQU: An 85-year-old male with a history of the CVA and stroke. Left-sided weakness and facial droop. There is also a history of fall 3 weeks ago. Stroke is suspected. TECHNIQUE: Multiplanar and multisequence MRI examination of brain is performed without intravenous contrast administration. COMPARISON: Comparison is made with the CT scan of the brain from outside facility of 06/12/2025 andMRI examination of the brain of 06/13/2025. FINDINGS: The ventricular system is normal in size and configuration. There is generalized corticalatrophy. There are numerous foci of signal abnormality [...] by Ray Vaughn MD on 06/18/2025 9:50 Ray Del Valle MD - 06/18/2025 HISTORY: An 85-year-old male with a history of the CVA and stroke. Left-sided weakness and facial droop. There is also a history of fall 3 weeks ago. Stroke is suspected. TECHNIQUE: Multiplanar and multisequence MRI examination of brain is performed without intravenous contrast administration. COMPARISON: Comparison is made with the CT scan of the brain from outside facility of 06/12/2025 andMRI examination of the brain of 06/13/2025. FINDINGS: The ventricular system is normal in size and configuration. There is generalized corticalatrophy. There are numerous foci of signal abnormality [...] on 06/18/2025 9:50 AM [facility] HospitalRadiology Study observation (narrative)[facility] HospitalMR Brain WO contrastOrdered By: Ray Vaughn on 62-11-1092CuwRosanlCleveland Clinic Marymount Hospital Work Phone: Magnesiumon 81-81-4910Yydmehhidbpskg and review of laboratory resultsAbnoUNC Health NashMagnesium [Mass/Vol]1.6 mg/dL Low1.8 - 2.6 mg/dLWellSpan Chambersburg HospitalNo Panel Informationon 50-14-1648Itfhqmwcibpdke and review of laboratory resultsNormal [facility] HospitalOsmolality Ordered By: Elisa Huber on 53-97-2890Ubmnmklyntykwz and review of laboratory resultsAbSt. Joseph's Hospital Health CenterOsmolality [Osmolality]261 mosm/kgLow [facility] Chambersburg HospitalPST TOPon 15-37-4815Tsrfv TubeAuto ResultedWellSpan Chambersburg HospitalPlatelet counton 67-16-8039Ocankxms mean volume (Bld) [Entitic vol]8.7 fL7 - 12 [facility] HospitalPlatelets (Bld) [#/Vol]214 10*3/uLCleveland Clinic Marymount HospitalProtime & INRon 27-34-6282JOU Coag (Platelet poor plasma or blood) [Relative time]1.10.9 - 1.2PSamaritan North Health CenterInterpretation and review of laboratory resultsNormal [facility] HospitalPT Coag (PPP) [Time]13 Community Health SystemsINR Coag (Platelet poor plasma or blood) [Relative time]1.10.9 - 1.2PSamaritan North Health CenterInterpretation and review of laboratory resultsNormal [facility] HospitalPT Coag (PPP) [Time]13 [facility] Health SystemsBedside Glucose *Place/Obtain serum glucose if >500 per glucometer. on 32-93-9145Yynjgcv [Mass/Vol]111 mg/tRBtjk60 - 99 mg/dLCleveland Clinic Mary[facility] Hospital Interpretation and review of laboratory resultsAbnoHoward Young Medical CenterCBC auto differentialon 38-06-3849Ibzgwjtpm (Bld) [#/Vol] 0.1 10*3/uL0.0 - 0.2 10*3/uLCleveland Clinic Marymount HospitalBasophils/100 WBC (Bld)1.5 % [facility] HospitalDifferential cell count method Nom (Bld)AUTOMATED DIFFERENTIALCleveland Clinic Marymount HospitalEosinophils (Bld) [#/Vol]0.1 10*3/uL0.0 - 0.4 10*3/uLCleveland Clinic Marymount HospitalEosinophils/100 WBC (Bld)3 %[facility] HospitalErythrocyte distribution width (RBC) [Ratio]13.8 %11.5 - 15 %[facility] HospitalHematocrit (Bld) [Volume fraction]37.3 %Low39 - 50 %[facility] HospitalHemoglobin (Bld) [Mass/Vol]13 g/dL13 - 17 g/dLCleveland Clinic Marymount HospitalInterpretation and review of laboratory resultsAbSt. Joseph's Hospital Health CenterLymphocytes (Bld) [#/Vol]1.3 10*3/uL1.0 - 3.5 10*3/uLCleveland Clinic Marymount HospitalLymphocytes/100 WBC (Bld)27.2 %[facility] HospitalH (RBC) [Entitic mass]31.2 pg27 - 34 [facility] SystemHC (RBC) [Mass/Vol]34.8 g/dL32 - 36 g/dLCleveland Clinic Marymount HospitalMCV (RBC) [Entitic vol]90 fL80 - 100 [facility] HospitalMonocytes (Bld) [#/Vol]0.5 10*3/uL0.0 - 0.9 10*3/uLCleveland Clinic Marymount HospitalMonocytes/100 WBC (Bld)10.1 %[facility] HospitalNeutrophils (Bld) [#/Vol]2.8 10*3/uL1.5 - 6.6 10*3/uLCleveland Clinic Marymount HospitalNeutrophils/100 WBC (Bld)58.2 %[facility] HospitalPlatelet mean volume (Bld) [Entitic vol]9.4 fL 7 - 12 [facility] HospitalPlatelets (Bld) [#/Vol]193 10*3/uLCleveland Clinic Marymount HospitalRBC (Bld) [#/Vol]4.17 10*6/[facility] HospitalWBC LM Ql (Sput)4.8WellSpan Chambersburg HospitalCT perfusion Headon 50-44-7104KB CEREBRAL PERF ANALYSIS: 06/17/2025 PROVIDED HISTORY: * 85 years old Male * Stroke COMPARISON: MRI brain 06/13/2025 TECHNIQUE: 1. Axial CT brain perfusion was performed during the uneventful administration of intravenous contrast. Postprocessing with RAPID software was used for interpretation. 2. All CT scans at this facility use dose modulation, iterative reconstruction, and/or weight baseddosing when appropriate to reduce radiation dose to [...] of the left anterior temporal horn, possibly artifactual,with perfusion parameters as described. Correlation with patient presentation and MRI brain, may beof diagnostic value. THIS REPORT CONTAINS AN URGENT RESULT AND/OR RECOMMENDATION, WHICH REQUIRES THE ATTENTION OF THE LICENSED CAREGIVER RESPONSIBLE FOR THIS PATIENT. THEREFORE, I SPECIFICALLY DESIGNATED THIS REPORT TO BE TELEPHONED BY THE RADIOLOGY DEPARTMENT. FINDINGS WERE INSTRUCTED TO BE CALLED TO THE CLINICAL SERVICE ON 06/17/2025 5:07 PM Finalized by Nico Dempsey MD on 06/17/2025 5:08 PMSDOROTHEA DIX HOSPITALRAUNIVERSITY OF WASHINGTON MEDICAL CENTERAbNico felix MD - 06/17/2025 CT CEREBRAL PERF ANALYSIS: 06/17/2025 PROVIDED HISTORY: * 85 years old Male * Stroke COMPARISON: MRI brain 06/13/2025 TECHNIQUE: 1. Axial CT brain perfusion was performed during the uneventful administration of intravenous contrast. Postprocessing with RAPID software was used for interpretation. 2. All CT scans at this facility use dose modulation, iterative reconstruction, and/or weight baseddosing when appropriate to reduce radiation dose to [...] of the left anterior temporal horn, possibly artifactual,with perfusion parameters as described. Correlation with patient presentation and MRI brain, may beof diagnostic value. THIS REPORT CONTAINS AN URGENT RESULT AND/OR RECOMMENDATION, WHICH REQUIRES THE ATTENTION OF THE LICENSED CAREGIVER RESPONSIBLE FOR THIS PATIENT. THEREFORE, I SPECIFICALLY DESIGNATED THIS REPORT TO BE TELEPHONED BY THE RADIOLOGY DEPARTMENT. FINDINGS WERE INSTRUCTED TO BE CALLED TO THE CLINICAL SERVICE ON 06/17/2025 5:07 PM Finalized by Nico Dempsey MD on 06/17/2025 5:08 PM [facility] HospitalQuickSolarRadiology Study observation (narrative)[facility] HospitalHydroNovation SystemCT perfusion HeadOrdered By: Nico Dempsey on 96-70-9205DkqRqpfryBeijing [employer] Work Phone: comprehensive metabolic panelon 24-44-3382Kydtnim [Mass/Vol]3.9 g/dL3.2 - 5.3 g/dLCincinnati VA Medical Center SystemALP [Catalytic activity/Vol]81 U/L39 - 130 U/[facility] Health SystemALT No additional P-5'-P [Catalytic activity/Vol]11 U/LNINF - 40 U/[facility] Health SystemAnion gap [Moles/Vol]8 mmol/L5 - 15 mmol/LPrValley View Hospital Health SystemAST [Catalytic activity/Vol]20 U/LNINF - 41 U/[facility] SystemBilirubin [Mass/Vol]1.1 mg/dL0.3 - 1.2 mg/dLCleveland Clinic Marymount HospitalCalcium [Mass/Vol]9.2 mg/dL8.5 - 10.5 mg/dLCleveland Clinic Marymount HospitalChloride [Moles/Vol]93 mmol/LLow98 - 109 mmol/L [facility] HospitalCO2 [Moles/Vol]26 mmol/L22 - 32 mmol/[facility] SystemCreatinine [Mass/Vol]0.75 mg/dL0.60 - 1.30 mg/dLC[facility] Clinic [facility] Comment on above:METHOD TRACEABLE TO [facility] STANDARDEGFR Non-Race Srucgfmgh[address] [place], [place] [address]Comment on above:Reported eGFR is based on the CKD-EPI 2020 equation that does not use a race coefficient. Glucose [Mass/Vol]94 mg/dL65 - 99 mg/dLCleveland Clinic Marymount HospitalPotassium [Moles/Vol]4.5 mmol/L3.5 - 5.0 mmol/LPrValley View Hospital Health SystemProtein [Mass/Vol] 6.5 g/dL6.0 - 8.0 g/dLCincinnati VA Medical Center SystemSodium [Moles/Vol]127 mmol/CNra639 - 146 mmol/[facility] SystemUrea nitrogen [Mass/Vol]10 mg/dL5 - 27 mg/dL [facility] HospitalMagnesiumon 96-28-3537Csylaajcg [Mass/Vol]1.7 mg/dLLow1.8 - 2.6 mg/dLCleveland Clinic Marymount HospitalNo Panel Informationon 06-17-2025 Interpretation and review of laboratory resultsAbnormalJeanes HospitalPhosphoron 30-25-0961Thszbnenoobytc and review of laboratory resultsNormalCleveland Clinic Marymount HospitalPhosphate [Mass/Vol]3.3 mg/dL2.4 - 4.9 mg/dLWood County Hospital 18-07-6069BsbslupaqsWellSpan Health Case Information Case Priority: None Programs: -- Referral Source: Accounts Payable Lead Referral Reason: Care coordination Case Type: Transition [...] Care Plan Progress Note Admit Date: 06/12/25 [facility] Discharge Date: 06/13/25 Follow-up appointment scheduled? yes, TCM with PCPPedro 06/19/25 at 1340 Did you understand your discharge instructions? yes Are you able to follow them? yes Did you receive new medications? yes, ASA 81 mg QD. stop; lisinopril, meloxicam Have you filled the Rx's? 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 No bowel or urinary system issues reported. Patient is eating and drinking well. Reviewed the following appointmen (more content not included)...NormalSheltering Arms HospitalCMPon 03-89-3422Crortoy [Mass/Vol]4.1 g/dLNormal3.3-5.0Sheltering Arms HospitalComment on above: Performed By: #### [id number] #### [facility] [address] [place], [place] [address]Nkzxcku/Globulin [Mass ratio]1.6 {ratio}Normal1.1-2.2FMadison HealthComment on above:Performed By: #### [id number] #### [facility] [address] [place], [place] [address]Ynd Phos86 Int._Unit/FIhqmys81-43FhuamrSheltering Arms Hospital Comment on above:Performed By: #### [id number] #### [facility] [address] [place], [place] [address]OFV90 Int._Unit/LNormal6-46S[facility] Arms HospitalComment on above:Performed By: #### [id number] #### [facility] [address] [place], [place] [address]Tusar gap [Moles/Vol]9 mmol/LNormal6-16S[facility] Arms HospitalComment on above:Performed By: #### [id number] #### [facility] [address] [place], [place] [address]HUN68 Int._Unit/LNormal5-43S[facility] Arms HospitalComment on above:Performed By: #### [id number] #### [facility] [address] [place], [place] [address]Mvkb Total1.0 mg/dLNormal0.0-1.1FMadison Health Comment on above:Performed By: #### [id number] #### [facility] [address] [place], [place] [address]QAG/Creat Ratio26 No PnjxkKlff17-78ZrtzfqSheltering Arms Hospital Comment on above:Performed By: #### [id number] #### [facility] [address] [place], [place] [address]Eehroap [Mass/Vol]9.8 mg/dLNormal8.9-11.1FMadison HealthComment on above:Performed By: #### [id number] #### [facility] [address] [place], [place] [address]Fgjhrtvm [Moles/Vol]95 mmol/SHex246-677OnnwcaSheltering Arms HospitalComment on above:Performed By: #### [id number] #### [facility] [address] [place], [place] [address]YO1 [Moles/Vol]27 mmol/BKdrxln01-98TeccciSheltering Arms Hospital Comment on above:Performed By: #### [id number] #### [facility] [address] [place], [place] [address]Aixhbrmdin [Mass/Vol]1.1 mg/dLNormal0.5-1.3FMadison HealthComment on above:Performed By: #### [id number] #### [facility] [address] [place], [place] [address]Eqqaihtx (S) [Mass/Vol]2.6 g/dLNormal1.4-4.0Sheltering Arms HospitalComment on above:Performed By: #### [id number] #### [facility] [address] [place], [place] [address]Fabkirl [Mass/Vol]190 mg/rWCmiqsj20-102SjxkpcSheltering Arms HospitalComment on above:Performed By: #### [id number] #### [facility] [address] [place], [place] [address]Elszufxiq [Moles/Vol]4.2 mmol/LNormal3.5-5.3FMadison HealthComment on above:Performed By: #### [id number] #### [facility] [address] [place], [place] [address]Itmumpy [Mass/Vol]6.7 g/dLNormal6.0-7.8S[facility] Arms HospitalComment on above:Performed By: #### [id number] #### [facility] [address] [place] [address]Fumque [Moles/Vol]127 mmol/SHfo448-251DrsprjSheltering Arms HospitalComment on above:Performed By: #### [id number] #### [facility] [address] [place] [address]Ofjf nitrogen [Mass/Vol]29 mg/dLHigh5-21Sheltering Arms HospitalComment on above:Performed By: #### [id number] #### [facility] [address] [place] [address]Ijoqpl Medicine Office/Clinic Noteon 19-98-3147Asorfc Medicine Office/Clinic NoteFaleonard morse hospital Medicine Office/Clinic Note Chief Complaint Discuss Medications The patient presents for a follow-up after hospitalization due to a nasal fracture. HPI Staff Former Dr Garcia pt. Pt presents today to follow up to hospitalization in [place]. Fell and hit his nose. Went to [facility] ER due to excessive bleeding. They packed it and DC'd pt. Upon arrival home, nose started bleeding again. Pt went back to ER, [place]. He was then transferred to [facility] in [place] where they admitted him for 3-4days. Sodium was dc'd. And pt was started on Lisinopril & Keflex & Ure-NA History of Present Illness 85-year-old male presents with his following a recent hospital stay for a nasal fracture. The incident occurred when the patient fell while attempting to lacey his stomach, resulting in a nasal fracture and subsequent bleeding. He was initially treated at [facility] with nasal packing and later transferred to [facility] for further management. During hospitalization, the [...] Hypo-osmolality and hyponatremia) - Reviewed documents from [facility] & [facility] in [place] - Sodium level on discharge 127 - Awaiting laboratory results - f/u in one week Ordered: Non-Formulary Medication, Ure-Na, See Instructions, 15 packet(s), 0, Natural Lemon [place] flavor, [id number], Supply, 178.6, cm, 06/07/25 10:56:00 EDT, Height/Length Dosing, 74.3, kg, 06/07/25 10:56:00 EDT, Weight Dosing Comprehensive Metabolic Panel 2. Hospital discharge follow-up (Z09: Encounter for follow-up examination after completed treatmentfor conditions other than malignant neoplasm) Nasal Fracture [...] See Instructions, 15 packet(s), 0, Natural Lemon [place] flavor, [id number], Supply, 178.6, cm, 06/07/25 10:56:00 EDT, Height/Length Dosing, 74.3, kg, 06/07/25 10:56:00 EDT, Weight Dosing 4. Nonsmoker (Z78.9: Other specified health status) Encouraged to continue as a non-smoker Ordered: Non-Formulary Medication, Ure-Na, See Instructions, 15 packet(s), 0, Natural Lemon [place] flavor, [id number], Supply, 178.6, cm, 06/07/25 10:56:00 EDT, Height/Length Dosing, 74.3, kg, 06/07/25 10:56:00 EDT, Weight Dosing total time spent preparing the chart, conducting of the encounter with the patient and family and time spent documenting, reviewing, and ordering tests was 40 minutes. Follow-up With When Contact Information YANIQUE MCNEILL CNP, FAM In 6 days 06/13/2025 EDT [address] [place] [address] Business (1) Additional Instructions: Patient Education Hyponatremia, Ktzb-iz-Cpja Problem List/Past Medical History Ongoing ASCVD (arteriosclerotic cardiovascular disease) Back spasm BMI 23.0-23.9, adult BMI 25.0-25.9,adult Carpal tunnel syndrome, left DM type 2 causing vascular disease Encounter for surveillance of abnormal nevi Erectile dysfunction due to arterial insufficiency Hard of hearing Hyperlipidemia Hyponatremia Hypothyroid Longstanding persistent atrial fibrillation Non (more content not included)...NormalSheltering Arms HospitalComment on above:Result Comment: Electronically Signed By: YANIQUE MCNEILL CNP\Date and Time Signed: 06/07/25 14:35 EDTeGFRon 47-43-5788fQEJ77 mL/min/1.73 o0Tipcxe >=59Sheltering Arms HospitalComment on above:Performed By: #### [id number] #### [facility] [address] [place], [place] [address]Ohmto Metabolic Panelon 13-11-2545Efyfb gap [Moles/Vol]12 mmol/L9 - 16 mmol/LBon LaroscoCalcium [Mass/Vol]9.2 mg/dL8.6 - 10.4 mg/dLBon LaroscoChloride [Moles/Vol]95 mmol/LLow98 - 107 mmol/LBon ProtoStar HealthCO2 [Moles/Vol]19 mmol/LLow20 - 31 mmol/LBon SecLending WorksCreatinine [Mass/Vol]0.8 mg/dL0.7 - 1.2 mg/dLBon SecLending WorksEst, Glom Filt Rate88- PINFBon LaroscoComment on above: These results are not intended [...] therapy that affects renal tubular secretion. Glucose [Mass/Vol]112 mg/tGWltv81 - 99 mg/dLBon [place] Interpretation and review of laboratory resultsAbnormalBon [place] Potassium [Moles/Vol]4.5 mmol/L3.7 - 5.3 mmol/LBon LaroscoComment on above:Specimen hemolysis has exceeded the interference as defined by Sindy. Value may be falsely increased. Suggest recollection if clinically indicated. Sodium [Moles/Vol]126 mmol/TBjy830 - 145 mmol/LBon Children'S Hospital Of ColumbusUrea nitrogen [Mass/Vol]13 mg/dL8 - 23 mg/dLBon Children'S Hospital Of ColumbusBon [facility] Hospital Of ColumbusBasic Metabolic Profon 08-50-8461Nailr gap [Moles/Vol]12 mmol/LNormal9-16 [facility] Medical CenterComment on above:Performed By: #### PT, BMP #### [employer] [address] [place] [address] Demolitionist: SANDRA Ríosalcium [Mass/Vol]9.2 mg/dLNormal8.6-10.4[facility] Beachwood Medical CenterComment on above:Performed By: #### PT, BMP #### [employer] [address] [place] [address] Demolitionist: SANDRA Ríoshloride [Moles/Vol]95 mmol/MCij48-794DhmloUniversity Hospitals Beachwood Medical CenterComment on above:Performed By: #### PT, BMP #### [employer] [address] [place] [address] Demolitionist: SANDRA RíosO2 [Moles/Vol]19 mmol/MQeg91-85PkghnUniversity [facility] Beachwood Medical CenterComment on above:Performed By: #### PT, BMP #### [employer] [address] [place] [address] Demolitionist: SANDRA Ríosreatinine [Mass/Vol]0.8 mg/dLNormal0.7-1.2MPark SanitariumComment on above:Performed By: #### PT, BMP #### [employer] [address] [place] [address] Demolitionist: Pankaj Cordoba MDGFR/1.73 sq M.predicted among non-blacks MDRD (S/P/Bld) [Vol rate/Area]88 mL/min/{1.73_m2}Normal>60[facility] CenterComment on above:Result Comment: These results are not intended for [...] or following therapy that affects renal tubular secretion.Performed By: #### PT, BMP #### [employer] [address] [place] [address] Demolitionist: Pankaj Cordoba MDGlucose [Mass/Vol]112 mg/gEEcov55-53PbpopPark SanitariumComment on above:Performed By: #### PT, BMP #### [facility] [address] [place] [address] Demolitionist: MARIANELA Ríosotassium [Moles/Vol]4.5 mmol/LNormal3.7-5.3 [facility] CenterComment on above:Result Comment: Specimen hemolysis has exceeded the interference as defined by Sindy. Value may be falsely increased. Suggest recollection if clinically indicated.Performed By: #### PT, BMP #### [employer] [address] [place] [address] Demolitionist: BASIM Ríosodium [Moles/Vol]126 mmol/OBav993-639PvhqiUniversity Hospitals Beachwood Medical CenterComment on above:Performed By: #### PT, BMP #### [facility] [address] [place] [address] Demolitionist: Pankaj Cordoba MDUrea nitrogen [Mass/Vol]13 mg/dLNormal-[facility] CenterComment on above:Performed By: #### PT, BMP #### [employer] [employer] [address] [place] [address] Demolitionist: Pankaj Cordoba MDElectrolyte Panelon 36-19-4811Danwz gap [Moles/Vol]16 mmol/L9 - 16 mmol/LBon [facility] Of ColumbusChloride [Moles/Vol]92 mmol/LLow98 - 107 mmol/LBon [facility] HealthCO2 [Moles/Vol]19 mmol/LLow20 - 31 mmol/LBon [facility] Of ColumbusInterpretation and review of laboratory results AbnormalBon [facility] ColumbusPotassium [Moles/Vol]4.4 mmol/L3.7 - 5.3 mmol/L [facility] HealthcareComment on above:Specimen hemolysis has exceeded the interference as defined by Sindy. Value may be falsely increased. Suggest recollection if clinically indicated. Sodium [Moles/Vol]127 mmol/NSfc121 - 145 mmol/LBon [facility] CenterElectrolyteson 68-91-2502Vlhlo gap [Moles/Vol]16 mmol/L Normal9-16[facility] CenterComment on above:Performed By: #### LYTE ####[facility] [address]fdx[address] [place] [address] Lab Director: Pankaj Cordoba MDChloride [Moles/Vol]92 mmol/EFph92-720XitakUniversity Hospitals Beachwood Medical CenterComment on above:Performed By: #### LYTE ####[facility] [address] [place] [address] Lab Director: Pankaj Cordoba MDCO2 [Moles/Vol]19 mmol/JApd44-15NsmmgUniversity Hospitals [facility]wood [facility] Center Comment on above:Performed By: #### LYTE ####[facility] [address]emrlc[address] [place] [address] Lab Director: Pankaj Cordoba MDPotassium [Moles/Vol]4.4 mmol/LNormal3.7-5.3MPark SanitariumComment on above:Result Comment: Specimen hemolysis has exceeded the interference as defined by Sindy. Value may be falsely increased. Suggest recollection if clinically indicated.Performed By: #### LYTE ####[facility] [address]xer[address] [place], [place] [id number] Lab Director: BASIM Ríosodium [Moles/Vol]127 mmol/TOxq010-103FhckwUniversity Hospitals Beachwood Medical CenterComment on above:Performed By: #### LYTE ####[facility] [address] [place] [address] Lab Director: Pankaj Cordoba MDGlucose,Whole Bloodon 51-65-9917Pagzmyg [Mass/Vol]145 mg/fZHxzh87-219 [facility] CenterGlucose [Mass/Vol]108 mg/iALuchqf96-799BuhakUniversity Hospitals Beachwood Medical CenterPOC Glucose Fingerstickon 77-43-0819Njtobto [Mass/Vol]145 mg/tLDyyo25 - 110 mg/dLBon [facility] Of ColumbusInterpretation and review of laboratory resultsAbnormalBon [facility] Glucose [Mass/Vol]108 mg/dL75 - 110 mg/dLBon [facility] CenterPTon 61-32-5085WTU Coag (PPP) [Relative time]1.9 {INR}NormalUniversity Hospitals Beachwood Medical CenterComment on above:Result Comment: Therapeutic Range: Moderate Anticoagulant Intensity: INR = 2.0-3.0 High Anticoagulant Intensity: INR = 2.5-3.5Performed By: #### PT, BMP #### [facility] [address] [place] [address] Demolitionist: JAQUELINE Ríos Coag (PPP) [Time]22.4 sHigh11.7-14.9[facility]wood Medical CenterComment on above:Performed By: #### PT, BMP #### [facility] [address] [place] [address] Demolitionist: Swapna Ríosime-INRon 87-56-7590VPP Coag (PPP) [Relative time]1.9 {INR}Bon [facility] Of ColumbusComment on above: Therapeutic Range: Moderate Anticoagulant Intensity: INR = 2.0-3.0 High Anticoagulant Intensity: INR = 2.5-3.5 Interpretation and review of laboratory resultsAbnoAugusta Health PT Coag (PPP) [Time]22.4 sHighBon [facility] Arterial Bld Gas,POCon 06-67-1857GQI6 (Bld) [Moles/Vol]24.6 mmol/LNormal 21.0-28.0[facility] CenterO2 DeviceRoom AirNormWright-Patterson Medical CenterOxygen saturation in Blood97.2 %Qqzbbu68.0-98.0[facility] CenterpCO2, Rigzfpsw28.6 mm ErYltcnc85.0-48.0[facility] CenterpH, Arterial7.960Kwucsl4.350-7.450[facility] pO2, Dstwdoyu65.7 mm ZfGdeair65.0-108.0[facility] CenterPositive Base Excess (calc)0.1 mmol/LNormal0.0-3.0[facility] Regional Hospitalite DrawnRight Radial ArteryNoSumma HealthArterial Blood Gas, [id number] (Bld) [Moles/Vol]24.6 mmol/L21.0 - 28.0 mmol/LBon [facility] Hospital Of ColumbusO2 Delivery DeviceRoom AirTwin County Regional HealthcareOxygen saturation in Blood97.2 %94.0 - 98.0 %[facility] nAS293.6Bon [facility] pH7.4127.350 - 7.450[facility] PO291.7 [facility] Regional HealthcarePositive Base Excess, Art0.1 mmol/L0.0 - 3.0 mmol/LBon [facility] ColumbusSample SiteRight Radial ArteryBon Children'S Hospital Of ColumbusBUN, POCon 98-56-4627Pcqw nitrogen [Mass/Vol]11 mg/dLNormal8-26[facility] CenterBasic Metab w/rfx MGon 44-69-3750Bgbed gap [Moles/Vol]10 mmol/L Normal9-16[facility] CenterComment on above:Performed By: #### BMPX ####[facility] [address] [place], [place] [phone] Director: SANDRA Ríosalcium [Mass/Vol]8.6 mg/dLNormal8.6-10.4[facility] CenterComment on above:Performed By: #### BMPX ####[facility] [address] [place] [address] [phone] Director: Pankaj Cordoba MDChloride [Moles/Vol]87 mmol/NXjn32-819RkysqUniversity Hospitals Beachwood Medical Center Comment on above:Performed By: #### BMPX ####[facility] [address] [place] [address] [phone] Director: Pankaj Cordoba MDCO2 [Moles/Vol] 21 mmol/FLnswoo68-57JhikbUniversity Hospitals Beachwood Medical CenterComment on above:Performed By: #### BMPX ####[facility] [address] [place] [address] [phone] Director: SANDRA Ríosreatinine [Mass/Vol]0.7 mg/dLNormal0.7-1.2 [facility] CenterComment on above:Performed By: #### BMPX ####[facility] [address] [place] [address] [phone] Director: Pankaj Cordoba MDGFR/1.73 sq M.predicted among non-blacks MDRD (S/P/Bld) [Vol rate/Area]mL/min/{1.73_m2}Normal>60[facility] CenterComment on above:Result Comment: These results are not intended for [...] or following therapy that affects renal tubular secretion.Performed By: #### BMPX ####[facility] [address]wi[address] [place], [place] [phone] Director: Pankaj Cordoba MDGlucose [Mass/Vol]107 mg/yLEige38-06QerjlPark Sanitarium Comment on above:Performed By: #### BMPX ####[facility] [address]fwqtxcmem[address] [place] [address] Lab Director: Pankaj Cordoba MDPotassium [Moles/Vol]4.8 mmol/LNormal3.7-5.3MPark SanitariumComment on above:Result Comment: Specimen hemolysis has exceeded the interference as defined by Sindy. Value may be falsely increased. Suggest recollection if clinically indicated.Performed By: #### BMPX ####[address] [phone] Director: BASIM Ríosodium [Moles/Vol]118 mmol/LCritically erf327-471 [facility] Medical CenterComment on above:Performed By: #### BMPX ####[address] [address] Lab Director: Pankaj Cordoba MDUrea nitrogen [Mass/Vol]11 mg/dLNormal8-23[facility] CenterComment on above:Performed By: #### BMPX ####[address] [address] Lab Director: Pankaj Cordoba MDAnion gap [Moles/Vol]12 mmol/LNormal9-16[facility] CenterComment on above:Performed By: #### BMPX #### [facility] [address] [place] [address] Demolitionist: Pankaj Cordoba MDCalcium [Mass/Vol]8.8 mg/dLNormal8.6-10.4[facility] CenterComment on above:Performed By: #### BMPX #### [address] [address] Demolitionist: SANDRA Ríoshloride [Moles/Vol]88 mmol/TGan77-641FadxhUniversity Hospitals Beachwood Medical CenterComment on above:Performed By: #### BMPX #### [address] [address] Demolitionist: Pankaj Cordoba MDCO2 [Moles/Vol]19 mmol/MAls71-29CyxfbUniversity Hospitals Beachwood Medical CenterComment on above:Performed By: #### BMPX #### [address] [address] Demolitionist: SANDRA Ríosreatinine [Mass/Vol]0.6 mg/dLLow0.7-1.2MPark SanitariumComment on above:Performed By: #### BMPX #### [address] [address] Demolitionist: Pankaj Cordoba MDGFR/1.73 sq M.predicted among non-blacks MDRD (S/P/Bld) [Vol rate/Area]mL/min/{1.73_m2}Normal>60[facility] CenterComment on above:Result Comment: These results are not intended for [...] or following therapy that affects renal tubular secretion.Performed By: #### BMPX #### [address] [address] Demolitionist: Pankaj Cordoba MDGlucose [Mass/Vol]86 mg/qAApdsan48-29IhclsPark SanitariumComment on above:Performed By: #### BMPX #### [address] [address] Demolitionist: Pankaj Cordoba MDPotassium [Moles/Vol]4.6 mmol/LNormal3.7-5.3 [facility] CenterComment on above:Result Comment: Specimen hemolysis has exceeded the interference as defined by Sindy. Value may be falsely increased. Suggest recollection if clinically indicated.Performed By: #### BMPX #### [facility] [address] [place] [address] Demolitionist: Pankaj Cordoba MDSodium [Moles/Vol]119 mmol/LCritically low 136-145[facility] Medical CenterComment on above:Performed By: #### BMPX #### [facility] [address] [place] [address] Demolitionist: Pankaj Cordoba MDUrea nitrogen [Mass/Vol]11 mg/dLNormal8-23[facility] CenterComment on above:Performed By: #### BMPX #### [facility] [address] [place] [address] Demolitionist: Pankaj Cordoba MDAnion gap [Moles/Vol]12 mmol/LNormal9-16[facility] CenterComment on above:Performed By: #### BMPX ####[facility] [address] [place] [address] Lab Director: Pankaj Cordoba MDCalcium [Mass/Vol]8.7 mg/dLNormal8.6-10.4[facility] Medical CenterComment on above:Performed By: #### BMPX ####[facility] [address]26[address] [place] [address] Lab Director: Pankaj Cordoba MDChloride [Moles/Vol]88 mmol/MJrr46-728FpoatUniversity Hospitals Beachwood Medical CenterComment on above: Performed By: #### BMPX ####[facility] [address] [place] [address] Lab Director: SANDRA RíosO2 [Moles/Vol]19 mmol/LLow 20-31[facility] Medical CenterComment on above:Performed By: #### BMPX ####[facility] [address] [place] [address] Lab Director: SANDRA Ríosreatinine [Mass/Vol]0.6 mg/dLLow0.7-1.2[facility] Fremont HospitalComment on above:Performed By: #### BMPX ####[employer] Customer SupportTzharkrycymw[address] [place] [address] Lab Director: Pankaj Cordoba MDGFR/1.73 sq M.predicted among non-blacks MDRD (S/P/Bld) [Vol rate/Area]mL/min/{1.73_m2}Normal>60[facility] Medical CenterComment on above:Result Comment: These results are not intended for [...] or following therapy that affects renal tubular secretion.Performed By: #### BMPX ####[facility] [place] [address] Lab Director: Pankaj Cordoba MDGlucose [Mass/Vol]81 mg/sYOufdtl92-68Rjwij [facility] Comment on above:Performed By: #### BMPX ####[facility] [address]orsbzh[address] [place] [address] Lab Director: MARIANELA Ríosotassium [Moles/Vol]4.1 mmol/LNormal3.7-5.3[facility] Fremont HospitalComment on above:Result Comment: Specimen hemolysis has exceeded the interference as defined by Sindy. Value may be falsely increased. Suggest recollection if clinically indicated.Performed By: #### BMPX ####[facility] [address]rsmt[address] [place], [place] [phone] Director: Pankaj Cordoba MDSodium [Moles/Vol]119 mmol/LCritically uiw362-142 [facility] CenterComment on above:Performed By: #### BMPX ####[facility] Lohgto[address]awqz[address] [place], [place] [phone] Director: Pankaj Cordoba MDUrea nitrogen [Mass/Vol]11 mg/dLNormal8-23[facility] CenterComment on above:Performed By: #### BMPX ####[address] [place], [place] [id number])[phone] Director: Pankaj Cordoba MDAnion gap [Moles/Vol]11 mmol/LNormal9-16[facility] Medical CenterComment on above:Performed By: #### OSMO #### [address] [address] Demolitionist: Pankaj Cordoba MDCalcium [Mass/Vol]9.0 mg/dLNormal8.6-10.4[facility] Medical CenterComment on above:Performed By: #### OSMO #### [address] [place] [address] Demolitionist: Pankaj Cordoba MDChloride [Moles/Vol]88 mmol/GUnf27-690UvornUniversity Hospitals Beachwood Medical CenterComment on above:Performed By: #### OSMO #### [facility] [address] [place] [address] Demolitionist: Pankaj Cordoba MDCO2 [Moles/Vol]21 mmol/BRngyir50-48TwodtUniversity Hospitals Beachwood Medical CenterComment on above:Performed By: #### OSMO #### [facility] [address] [place] [address] Demolitionist: SANDRA Ríosreatinine [Mass/Vol]0.6 mg/dLLow0.7-1.2MPark SanitariumComment on above:Performed By: #### OSMO #### [place] [address] Demolitionist: Pankaj Cordoba MDGFR/1.73 sq M.predicted among non-blacks MDRD (S/P/Bld) [Vol rate/Area]mL/min/{1.73_m2}Normal>60[facility] CenterComment on above:Result Comment: These results are not intended for [...] or following therapy that affects renal tubular secretion.Performed By: #### OSMO #### [facility] [address] [place] [address] Demolitionist: Pankaj Cordoba MDGlucose [Mass/Vol]75 mg/oVAoxzvy50-29UtyssPark SanitariumComment on above:Performed By: #### OSMO #### [facility] [address] [place] [address] Demolitionist: Pankaj Cordoba MDPotassium [Moles/Vol]4.3 mmol/LNormal3.7-5.3 [facility] CenterComment on above:Performed By: #### OSMO #### [facility] [address] [place] [address] Demolitionist: Pankaj Cordoba MDSodium [Moles/Vol]120 mmol/JDoe584-349JxcanUniversity Hospitals Beachwood Medical CenterComment on above:Performed By: #### OSMO #### [facility] [address] [place] [address] Demolitionist: Pankaj Cordoba MDUrea nitrogen [Mass/Vol]11 mg/dLNormal8-23[facility] CenterComment on above:Performed By: #### OSMO #### [facility] [address] [place] [address] Demolitionist: Pankaj Cordoba MDAnion gap [Moles/Vol]14 mmol/LNormal9-16[facility] CenterComment on above:Performed By: #### BMPX ####[facility] [address] [place], [place] [address])[phone] Director: SANDRA Ríosalcium [Mass/Vol]8.5 mg/dLLow8.6-10.4[facility] Comment on above:Performed By: #### BMPX ####[facility] [address] [place], [place] [address])[phone] Director: Pankaj Cordoba MDChloride [Moles/Vol]89 mmol/EKdv39-878VybyaUniversity Hospitals Beachwood Medical CenterComment on above: Performed By: #### BMPX ####[facility] [address]iq[address] [place], [place] [address])[phone] Director: Pankaj Cordoba MDCO2 [Moles/Vol]17 mmol/LLow 20-31[facility] Medical CenterComment on above:Performed By: #### BMPX ####[facility] [address] [place], [place] [address])[phone] Director: SANDRA Ríosreatinine [Mass/Vol]0.6 mg/dLLow0.7-1.2MPark SanitariumComment on above:Performed By: #### BMPX ####[facility] [address] [place], [place] [address])[phone] Director: Pankaj Cordoba MDGFR/1.73 sq M.predicted among non-blacks MDRD (S/P/Bld) [Vol rate/Area]mL/min/{1.73_m2}Normal>60[facility] CenterComment on above:Result Comment: These results are not intended for [...] or following therapy that affects renal tubular secretion.Performed By: #### BMPX ####[facility] [address]rs[address]ft[address] [place], [place] [address])[phone] Director: Pankaj Cordoba MDGlucose [Mass/Vol]76 mg/xDRnqzzp35-26LdlwmPark Sanitarium Comment on above:Performed By: #### BMPX ####[facility] [address] [place], [place] [address])[phone] Director: MARIANELA Ríosotassium [Moles/Vol]4.4 mmol/LNormal3.7-5.3MPark SanitariumComment on above:Result Comment: Specimen hemolysis has exceeded the interference as defined by Sindy. Value may be falsely increased. Suggest recollection if clinically indicated.Performed By: #### BMPX ####[facility] [address] [place], [place] [address])[phone] Director: BASIM Ríosodium [Moles/Vol]120 mmol/HSja005-637QemqlUniversity Hospitals Beachwood Medical CenterComment on above:Performed By: #### BMPX ####[facility] [address] [place], [place] [address])[phone] Director: Pankaj Cordoba MDUrea nitrogen [Mass/Vol]11 mg/dLNormal8-23[facility] CenterComment on above:Performed By: #### BMPX ####[facility] [address]zv[address] [place], [place] [address])[phone] Director: Pankaj Cordoba MDAnion gap [Moles/Vol]15 mmol/LNormal9-16[facility] CenterComment on above: Performed By: #### BMPX ####[facility] Rw[address]okycghxc7545 [place] [address] Lab Director: SANDRA Ríosalcium [Mass/Vol]8.6 mg/dL Normal8.6-10.4[facility] CenterComment on above:Performed By: #### BMPX ####[facility] [address] [place] [address] [id number])[phone] Director: SANDRA Ríoshloride [Moles/Vol]86 mmol/TGmc08-722QbeguUniversity Hospitals Beachwood Medical CenterComment on above:Performed By: #### BMPX ####[facility] [address] [phone] Director: Pankaj Cordoba MDCO2 [Moles/Vol]16 mmol/KMjx65-58VyscmUniversity Hospitals [facility] Center Comment on above:Performed By: #### BMPX ####[address] [phone] Director: SANDRA Ríosreatinine [Mass/Vol]0.7 mg/dLNormal0.7-1.2MPark SanitariumComment on above:Performed By: #### BMPX ####[facility] [address] [phone])[phone] Director: Pankaj Cordoba MDGFR/1.73 sq M.predicted among non-blacks MDRD (S/P/Bld) [Vol rate/Area]mL/min/{1.73_m2}Normal>60[facility] CenterComment on above:Result Comment: These results are not intended for [...] or following therapy that affects renal tubular secretion.Performed By: #### BMPX ####[facility] [address] [place] [address] Lab Director: Pankaj Cordoba MDGlucose [Mass/Vol]90 mg/yRHfbwkf16-28YumzkPark Sanitarium Comment on above:Performed By: #### BMPX ####[facility] [address]nf[address] [place] [address] Lab Director: MARIANELA Ríosotassium [Moles/Vol]4.1 mmol/LNormal3.7-5.3MPark SanitariumComment on above:Result Comment: Specimen hemolysis has exceeded the interference as defined by Sindy. Value may be falsely increased. Suggest recollection if clinically indicated.Performed By: #### BMPX ####[facility] [address]wqsk[address] [place] [address] Lab Director: BASIM Ríosodium [Moles/Vol]117 mmol/LCritically qlw303-433 [facility] CenterComment on above:Performed By: #### BMPX ####[facility] [address]so[address]rwdq2872 [place] [address] Lab Director: Pankaj Cordoba MDUrea nitrogen [Mass/Vol]12 mg/dLNormal8-23[facility] CenterComment on above:Performed By: #### BMPX ####[facility] [address]rsizw[address] [place] [address] Lab Director: Pankaj Cordoba MDBacommonwealth regional specialty hospital Metabolic Panel w/ Reflex to MGon 85-53-6312Nrwmp gap [Moles/Vol]10 mmol/L9 - 16 mmol/LBon Secours Mercy HealthCalcium [Mass/Vol]8.6 mg/dL8.6 - 10.4 mg/dLBon Secours Mercy HealthChloride [Moles/Vol]87 mmol/LLow98 - 107 mmol/LBon [facility]ours [facility] HealthCO2 [Moles/Vol]21 mmol/L20 - 31 mmol/LBon [facility]ours [facility] HealthCreatinine [Mass/Vol]0.7 mg/dL0.7 - 1.2 mg/dLBon Secours [facility] HealthEst, Glom Filt Rate- PINFBon Tri[facility] McCull[facility]-Hyde Memorial Hospitalment on above: These results are not intended [...] therapy that affects renal tubular secretion. Glucose [Mass/Vol]107 mg/gZAxou51 - 99 mg/dLBon [facility] Interpretation and review of laboratory resultsAbnormReston Hospital Center Potassium [Moles/Vol]4.8 mmol/L3.7 - 5.3 mmol/LBon [facility] on above:Specimen hemolysis has exceeded the interference as defined by Sindy. Value may be falsely increased. Suggest recollection if clinically indicated. Sodium [Moles/Vol]118 mmol/LCritically vim537 - 145 mmol/LBon [facility] Hospital Of ColumbusUrea nitrogen [Mass/Vol]11 mg/dL8 - 23 mg/dLBon [facility] Of ColumbusBon [facility] Hospital Of ColumbusAnion gap [Moles/Vol]12 mmol/L9 - 16 mmol/LBon [facility] Hospital Of ColumbusCalcium [Mass/Vol]8.8 mg/dL8.6 - 10.4 mg/dLBon [facility] Chloride [Moles/Vol]88 mmol/LLow98 - 107 mmol/LBon [facility] Hospital [facility] ColumbusCO2 [Moles/Vol]19 mmol/LLow20 - 31 mmol/LBon [facility] ColumbusCreatinine [Mass/Vol]0.6 mg/dLLow0.7 - 1.2 mg/dLBon [facility] Hospital Of ColumbusEst, Glom Filt Rate - PINFBon [facility] Memorial Hospitalment on above: These results are not intended [...] therapy that affects renal tubular secretion. Glucose [Mass/Vol]86 mg/dL74 - 99 mg/dLBon [facility] ColumbusInterpretation and review of laboratory resultsAbnormalBon Secours [facility] HealthPotassium [Moles/Vol]4.6 mmol/L3.7 - 5.3 mmol/LBon [facility] HealthComment on above: Specimen hemolysis has exceeded the interference as defined by Sindy. Value may be falsely increased. Suggest recollection if clinically indicated. Sodium [Moles/Vol]119 mmol/LCritically tll088 - 145 mmol/LBon SecKettering Health DaytonUrea nitrogen [Mass/Vol]11 mg/dL8 - 23 mg/dLBon Secours Kettering Memorial HospitalBon Secours [facility] Memorial HospitalAnion gap [Moles/Vol]12 mmol/L9 - 16 mmol/LBon SecBaton Rouge General Medical Center HealthCalcium [Mass/Vol]8.7 mg/dL8.6 - 10.4 mg/dLBon [facility] Health Chloride [Moles/Vol]88 mmol/LLow98 - 107 mmol/LBon SecBaton Rouge General Medical Center HealthCO2 [Moles/Vol]19 mmol/LLow20 - 31 mmol/LBon [facility] ColumbusCreatinine [Mass/Vol]0.6 mg/dLLow0.7 - 1.2 mg/dLBon SecBaton Rouge General Medical Center HealthEst, Glom Filt Rate - PINFBon [facility]S Hospital Of ColumbusComment on above: These results are not intended [...] therapy that affects renal tubular secretion. Glucose [Mass/Vol]81 mg/dL74 - 99 mg/dLBon [facility] HealthInterpretation and review of laboratory resultsAbnormalBon Secours Mercy HealthPotassium [Moles/Vol]4.1 mmol/L3.7 - 5.3 mmol/LBon [facility] Hospital Of ColumbusComment on above: Specimen hemolysis has exceeded the interference as defined by Sindy. Value may be falsely increased. Suggest recollection if clinically indicated. Sodium [Moles/Vol]119 mmol/LCritically laj489 - 145 mmol/LBon Secours Mercy HealthUrea nitrogen [Mass/Vol]11 mg/dL8 - 23 mg/dLBon Secours Mercy HealthBon [facility] HealthAnion gap [Moles/Vol]11 mmol/L9 - 16 mmol/LBon [facility] HealthCalcium [Mass/Vol]9 mg/dL8.6 - 10.4 mg/dLBon [facility] HealthChloride [Moles/Vol]88 mmol/LLow98 - 107 mmol/LBon [facility] HealthCO2 [Moles/Vol]21 mmol/L20 - 31 mmol/LBon [facility] HealthCreatinine [Mass/Vol]0.6 mg/dLLow 0.7 - 1.2 mg/dLBon [facility]ours [facility] HealthEst, Glom Filt Rate- PINFBon Secours Trihealthy HealthComment on above: These results are not intended [...] therapy that affects renal tubular secretion. Glucose [Mass/Vol]75 mg/dL74 - 99 mg/dLBon Secours Mercy HealthInterpretation and review of laboratory resultsAbnormalHonorhealth Scottsd[facility] HealthPotassium [Moles/Vol]4.3 mmol/L3.7 - 5.3 mmol/LBon [facility]ours [facility] HealthSodium [Moles/Vol] 120 mmol/VDjl183 - 145 mmol/LBon [facility]ours [facility] HealthUrea nitrogen [Mass/Vol]11 mg/dL8 - 23 mg/dLBon [facility] HealthAnion gap [Moles/Vol]14 mmol/L9 - 16 mmol/LBon [facility] HealthCalcium [Mass/Vol]8.5 mg/dLLow8.6 - 10.4 mg/dLBon [facility] HealthChloride [Moles/Vol]89 mmol/LLow98 - 107 mmol/LBon [facility] HealthCO2 [Moles/Vol]17 mmol/LLow20 - 31 mmol/LBon [facility] Creatinine [Mass/Vol]0.6 mg/dLLow0.7 - 1.2 mg/dLBon [facility] Medical CenterLending WorksEst, Glom Filt Rate- PINFBon Children[facility]S Hospital Of ColumbusComment on above: These results are not intended [...] therapy that affects renal tubular secretion. Glucose [Mass/Vol]76 mg/dL74 - 99 mg/dLBon [facility] HealthInterpretation and review of laboratory resultsAbnormalBon [facility] HealthPotassium [Moles/Vol]4.4 mmol/L3.7 - 5.3 mmol/LBon [facility] Hospital Of ColumbusComment on above: Specimen hemolysis has exceeded the interference as defined by Sindy. Value may be falsely increased. Suggest recollection if clinically indicated. Sodium [Moles/Vol]120 mmol/OTtj562 - 145 mmol/LBon SecB[facility] HealthUrea nitrogen [Mass/Vol]11 mg/dL8 - 23 mg/dLBon Secours [facility] HospitalBon Secours Trihealthy [facility] CenterAnion gap [Moles/Vol]15 mmol/L9 - 16 mmol/LBon SecBaton [facility] Health Calcium [Mass/Vol]8.6 mg/dL8.6 - 10.4 mg/dLBon SecBaton Rouge General [facility] Center HealthChloride [Moles/Vol]86 mmol/LLow98 - 107 mmol/LBon SecBaton Rouge General [facility] Center HealthCO2 [Moles/Vol]16 mmol/LLow20 - 31 mmol/LBon [facility] HealthCreatinine [Mass/Vol]0.7 mg/dL0.7 - 1.2 mg/dLBon SecInland Northwest Behavioral HealthPit My PetEst, Glom Filt Rate- PINFBon Children'S Hospital Of ColumbusComment on above: These results are not intended [...] therapy that affects renal tubular secretion. Glucose [Mass/Vol]90 mg/dL74 - 99 mg/dLBon [facility] ColumbusInterpretation and review of laboratory resultsAbnormReston Hospital CenterPotassium [Moles/Vol]4.1 mmol/L3.7 - 5.3 mmol/LBon [facility] ColumbusComment on above: Specimen hemolysis has exceeded the interference as defined by Sindy. Value may be falsely increased. Suggest recollection if clinically indicated. Sodium [Moles/Vol]117 mmol/LCritically tpe854 - 145 mmol/LBon [facility] Hospital Of ColumbusUrea nitrogen [Mass/Vol]12 mg/dL8 - 23 mg/dLBon [facility] CenterCALCIUM, IONIC (POC)on 69-44-8504Xksrmli.ionized (Bld) [Moles/Vol]1.18 mmol/L1.15 - 1.33 mmol/LBon [facility] Hospital Of ColumbusCT HEAD WO CONTRASTon 14-52-5697GB HEAD WO CONTRASTEXAMINATION: CT OF THE HEAD WITHOUT CONTRAST 06/04/2025 [...] Signed by: Dixon Crockett MD 06/04/25 Final resultNormalMerAlhambra Hospital Medical CenterCT Head WO contraston . No acute intracranial abnormality. 2. Acute right maxillary sinusitis. [facility] CONSOLIDATEDEXAMINATION: CT OF THE HEAD WITHOUT CONTRAST 06/04/2025 [...] cells. SOFT TISSUES/SKULL: The calvarium is intact. [facility] Dixon Kiran MD - 06/04/2025 EXAMINATION: CT OF THE [...] 2. Acute right maxillary sinusitis. [facility] Systemiology Study observation (narrative)[facility] HealthcareCT Head WO contrastOrdered By: Dixon Crockett on 04-49-7204Nxs [facility] Work Phone: Calcium, Ionic (POC)on 16-58-6358Rbxkmgg [Moles/Vol] 1.18 mmol/LNormal1.15-1.33[facility] Medical CenterCortisolon 06-04-2025 Ebrjzmyc29.7 ug/dLNormal2.5-19.5[facility] Medical CenterComment on above:Result Comment: Cortisol Reference Range: AM 6.0-18.4 PM 2.7-10.5Performed By: #### OSMO #### [facility] [address] [place] [address] Demolitionist: Pankaj Cordoba MDCortisokrishan Totalon 23-78-3784Rfqtxbto [Mass/Vol] 11.7 ug/dL2.5 - 19.5 ug/dLBon [facility] Hospital Of ColumbusComharbor beach community hospital on above: Cortisol Reference Range: AM 6.0-18.4 PM 2.7-10.5 Creatinine W/GFR Point of Careon 27-65-9548Xgsldfercg [Mass/Vol]0.7 mg/dL0.51 - 1.19 mg/dLBon [facility] Hospital Of ColumbuseGFR, POC- PINFBon Children'S Hospital Of ColumbusComment on above: These results are not intended [...] affects renal tubular secretion. Creatinine w/GFR, POCon 05-48-9217Dcstdrzrqc [Mass/Vol]0.7 mg/dLNormal0.51-1.19 [facility] Medical CenterGFR/1.73 sq M.predicted among non-blacks MDRD (S/P/Bld) [Vol rate/Area]mL/min/{1.73_m2}Normal>60MerAlhambra Hospital Medical CenterComment on above:Result Comment: These results are not intended for [...] or following therapy that affects renal tubular secretion.ELECTROLYTES PLUSon 65-95-3503Emqof gap [Moles/Vol]12 mmol/L7 - 16 mmol/LBon [facility] HealthChloride [Moles/Vol]89 mmol/LLow98 - 107 mmol/LBon [facility] HealthCO2 Calc (Bld) [Moles/Vol]23 mmol/L22 - 30 mmol/LBon [facility] HealthPotassium [Moles/Vol] 3.9 mmol/L3.5 - 4.5 mmol/LBon [facility] HealthSodium [Moles/Vol]123 mmol/L Clf585 - 146 mmol/LBon [facility] HealthElectrolyte Panelon 40-43-9095Zvsya gap [Moles/Vol]9 mmol/L9 - 16 mmol/LBon [facility] HealthChloride [Moles/Vol] 91 mmol/LLow98 - 107 mmol/LBon [facility] HealthCO2 [Moles/Vol]21 mmol/L20 - 31 mmol/LBon [facility] HealthInterpretation and review of laboratory results AbnormalBon [facility] HealthPotassium [Moles/Vol]4.3 mmol/L3.7 - 5.3 mmol/L [facility] HealthSodium [Moles/Vol]121 mmol/EMbd372 - 145 mmol/LBon [facility]ours Mercy HealthBon [facility]ours Mercy HealthAnion gap [Moles/Vol]12 mmol/L9 - 16 mmol/LBon [facility] HealthChloride [Moles/Vol]90 mmol/LLow98 - 107 mmol/L [facility] HealthCO2 [Moles/Vol]20 mmol/L20 - 31 mmol/LBon [facility] HealthInterpretation and review of laboratory resultsAbnormalBon [facility] HealthPotassium [Moles/Vol]4.3 mmol/L3.7 - 5.3 mmol/LBon [facility] Sodium [Moles/Vol]122 mmol/JIwv059 - 145 mmol/LBon [facility] CenterAnion gap [Moles/Vol]11 mmol/L9 - 16 mmol/LBon [facility] Hospital Of ColumbusChloride [Moles/Vol]88 mmol/LLow98 - 107 mmol/LBon [facility] CO2 [Moles/Vol]19 mmol/LLow20 - 31 mmol/LBon [facility] Of ColumbusInterpretation and review of laboratory resultsAbnormalTwin County Regional HealthcarePotassium [Moles/Vol]4.5 mmol/L3.7 - 5.3 mmol/LBon [facility] Hospital Of ColumbusSodium [Moles/Vol] 118 mmol/LCritically ahq529 - 145 mmol/LBon [facility] CenterElectrolyteson 09-09-1642Vvdrv gap [Moles/Vol]9 mmol/LNormal9-16 [facility] CenterComment on above:Performed By: #### OSMO #### [facility] [address] [place] [address] Demolitionist: Pankaj Cordoba MDChloride [Moles/Vol]91 mmol/RSvh36-771GhegiUniversity Hospitals Beachwood Medical CenterComment on above:Performed By: #### OSMO #### [facility] [address] [place] [address] Demolitionist: Pankaj Cordoba MDCO2 [Moles/Vol]21 mmol/HJcruqe63-59QychsUniversity Hospitals Beachwood Medical CenterComment on above:Performed By: #### OSMO #### [employer] [facility] [employer] [address] [place] [address] Demolitionist: Pankaj Cordoba MDPotassium [Moles/Vol]4.3 mmol/LNormal3.7-5.3 [facility] CenterComment on above:Performed By: #### OSMO #### [facility] [address] [place] [address] [phone] Demolitionist: Pankaj Cordoba MDSodium [Moles/Vol]121 mmol/ZJtp271-934NhyvxUniversity Hospitals Beachwood Medical CenterComment on above:Performed By: #### OSMO #### [facility] [address] [place] [address] Demolitionist: Pankaj Cordoba MDAnion gap [Moles/Vol]12 mmol/LNormal9-16[facility] Medical CenterComment on above:Performed By: #### LYTE ####[facility] [address] [place], [place] [phone] Director: Pankaj Cordoba MDChloride [Moles/Vol]90 mmol/YRyl77-019AogztUniversity Hospitals Beachwood Medical Center Comment on above:Performed By: #### LYTE ####[facility] [address] [place], [place] [phone] Director: Pankaj Cordoba MDCO2 [Moles/Vol] 20 mmol/RAovjqz46-61IatiuUniversity Hospitals Beachwood Medical CenterComment on above:Performed By: #### LYTE ####[facility] [address] [place] [phone] Director: Pankaj Cordoba MDPotassium [Moles/Vol]4.3 mmol/LNormal3.7-5.3 [facility] Medical CenterComment on above:Performed By: #### LYTE ####[facility] [address] [place] [address] Lab Director: Pankaj Cordoba MDSodium [Moles/Vol]122 mmol/BSei816-279EcvziUniversity Hospitals Beachwood Medical CenterComment on above:Performed By: #### LYTE ####[facility] [address] [place] [address] Lab Director: Pankaj Cordoba MDAnion gap [Moles/Vol]11 mmol/LNormal9-16[facility] CenterComment on above:Performed By: #### OSMO #### [facility] [address] [place] [address] Demolitionist: Pankaj Cordoba MDChloride [Moles/Vol]88 mmol/LCyq75-516RqrbgUniversity Hospitals Beachwood Medical CenterComment on above:Performed By: #### OSMO #### [facility] [address] [place] [address] Demolitionist: Pankaj Cordoba MDCO2 [Moles/Vol]19 mmol/IYgb58-59RirnaUniversity Hospitals Beachwood Medical CenterComment on above:Performed By: #### OSMO #### [facility] [address] [place] [address] Demolitionist: Pankaj Cordoba MDPotassium [Moles/Vol]4.5 mmol/LNormal3.7-5.3 [facility] Medical CenterComment on above:Performed By: #### OSMO #### [address] [address] Demolitionist: Pankaj Cordoba MDSodium [Moles/Vol]118 mmol/LCritically low 136-145[facility] Medical CenterComment on above:Performed By: #### OSMO #### [facility] [address] [place] [address] Demolitionist: Pankaj Cordoba MDAnion gap [Moles/Vol]12 mmol/LNormal7-16[facility] Medical CenterChloride [Moles/Vol]89 mmol/LMbz77-900JdauxUniversity Hospitals Beachwood Medical CenterCO2 [Moles/Vol]23 mmol/BSxfton58-72ErpurUniversity Hospitals Beachwood Medical CenterPotassium [Moles/Vol]3.9 mmol/LNormal3.5-4.5ProMedica Defiance Regional Hospitalodium [Moles/Vol]123 mmol/PHyc344-014BclmqUniversity Hospitals Beachwood Medical CenterGlucose (POC)on 82-17-9361Ywvfagm [Mass/Vol]81 mg/wBEiupik34-069OdjseUniversity Hospitals Beachwood Medical CenterGlucose,Whole Bloodon 91-25-9012Uzgykht [Mass/Vol]119 mg/mSJkak39-687BpqbkUniversity Hospitals Beachwood Medical CenterGlucose [Mass/Vol]96 mg/dLNormal 75-110[facility] Medical CenterGlucose [Mass/Vol]117 mg/bHYoma26-371HjfgjUniversity Hospitals Beachwood Medical CenterGlucose [Mass/Vol]93 mg/uRHcjrdw69-731UdoetUniversity Hospitals Beachwood Medical CenterGlucose [Mass/Vol]76 mg/ePBjcinv57-464AtqwzUniversity Hospitals Beachwood Medical CenterHemoglobin and hematocrit, bloodon 72-18-5685Tfkjewipau (Bld) [Volume fraction]36 %Low41 - 53 %Bon [facility] Hospital Of ColumbusHemoglobin (Bld) [Mass/Vol]12.3 g/dLLow13.5 - 17.5 g/dLBon [facility] Hospital Of ColumbusHgb/Hct, POCon 12-71-7301Aryrqcllzx (Bld) [Volume fraction]36 %Cuj31-31DfjvqAlhambra Hospital Medical CenterHemoglobin (Bld) [Mass/Vol]12.3 g/dLLow13.5-17.5[facility] Medical CenterLactic Acid (POC)on 99-03-0370Vxcadze [Moles/Vol]0.8 mmol/LNormal 0.56-1.39[facility] Medical CenterLactic Acid, POCon 07-42-2081ZKS Lactic Acid0.8 mmol/L0.56 - 1.39 mmol/LBon [facility] Of ColumbusNo Panel Informationon 91-62-6463Vke [facility] Hospital Of ColumbusInterpretation and review of laboratory resultsAbnormalBon [facility] Surgical CenterOsmolality, Urine on 13-78-1574Ovkhpghvyt (U) [Osmolality]590 mosm/kgBath Community HospitalOsmolality - Bbsgo403 mOsm/avDgqcpx98-6712EgavvUniversity Hospitals Beachwood Medical CenterComment on above:Performed By: #### ANNABELLE MAO ####[place] [id number] [facility] Director: JOSE Ríos Glucose Fingerstickon 09-88-4901Llzijkf [Mass/Vol]119 mg/vIEtyb91 - 110 mg/dLBon [facility] Of ColumbusInterpretation and review of laboratory resultsAbnormChildren's Hospital of Richmond at VCUGlucose [Mass/Vol]96 mg/dL75 - 110 mg/dLBon [facility] Glucose [Mass/Vol]117 mg/mUPsiq36 - 110 mg/dLBon [facility] Interpretation and review of laboratory resultsAbnormReston Hospital Center Bon [facility] Hospital Of ColumbusGlucose [Mass/Vol]93 mg/dL75 - 110 mg/dLBon [facility] CenterGlucose [Mass/Vol]76 mg/dL75 - 110 mg/dLBon [facility] CenterPOCT Glucoseon 45-21-9004Dqfmqeo [Mass/Vol]81 mg/dL74 - 100 mg/dLBon [facility] HospitalCT urea (BUN)on 56-96-7203Lkwn nitrogen [Mass/Vol]11 mg/dL8 - 26 mg/dLBon [facility] Hospital Of ColumbusPT on 02-80-7525XBZ Coag (PPP) [Relative time]1.8 {INR}NormalUniversity Hospitals Beachwood Medical CenterComment on above:Result Comment: Therapeutic Range: Moderate Anticoagulant Intensity: INR = 2.0-3.0 High Anticoagulant Intensity: INR = 2.5-3.5Performed By: #### PT #### [employer] [facility] [employer] [address] [place], [place] [phone] Demolitionist: JAQUELINE Ríos Coag (PPP) [Time]21.4 sHigh11.7-14.9[facility] Medical CenterComment on above:Performed By: #### PT #### [facility] [address] [place], [place] [phone] Demolitionist: Swapna Ríosime-INRon 59-26-8700NBU Coag (PPP) [Relative time]1.8 {INR}[facility] Regional HealthcareComment on above: Therapeutic Range: Moderate Anticoagulant Intensity: INR = 2.0-3.0 High Anticoagulant Intensity: INR = 2.5-3.5 Interpretation and review of laboratory resultsAbnormReston Hospital Center PT Coag (PPP) [Time]21.4 sHighBPioneer Memorial Hospital and Health Services Sodium, Random Uron 87-19-6740Wzepct (U) [Moles/Vol]159 mmol/LNormalTwin County Regional HealthcareComment on above:No normal range established.Result Comment: No normal range established.Performed By: #### URNA UOSMO ####[facility] [place] [address] Lab Director: BASIM Ríosodium, urine, randomon 14-83-7798Yvy Children'S Hospital Of ColumbusT4, Freeon 38-20-7096Rywo T4 [Mass/Vol]1.5 ng/dL0.92 - 1.68 ng/dLBon [facility] TSHon 39-37-8585KNJ Qn2.95 m[IU]/LBon [facility]'S Hospital Of ColumbusThyroid Stim. Horm.on 57-02-3874Lbphclv Stim. Horm.2.95 uIU/mLNormal0.27-4.20[facility] Medical CenterComment on above:Performed By: #### OSMO #### [facility] [address] [place] [address] Demolitionist: Pankaj Cordoba MDThyroxine, Freeon 16-80-9915Ntasyaffo, Free1.5 ng/dLNormal0.92-1.68[facility] Medical CenterComment on above:Performed By: #### OSMO #### [facility] [address] [place] [address] Demolitionist: Pankaj Cordoba MDBasic Metab w/rfx MGon 52-16-7410Xkkyv gap [Moles/Vol]11 mmol/LNormal9-16[facility] Medical CenterComment on above: Performed By: #### OSMO #### [facility] [address] [place] [address] Demolitionist: SANDRA Ríosalcium [Mass/Vol]9.0 mg/dLNormal8.6-10.4[facility] Medical CenterComment on above:Performed By: #### OSMO #### [facility] [address] [place] [address] Demolitionist: SANDRA Ríoshloride [Moles/Vol]90 mmol/TBep60-522AkvisUniversity Hospitals Beachwood Medical CenterComment on above:Performed By: #### OSMO #### [facility] [address] [place] [address] Demolitionist: Pankaj Cordoba MDCO2 [Moles/Vol]20 mmol/EClpjby87-95QqturUniversity Hospitals Beachwood Medical CenterComment on above:Performed By: #### OSMO #### [facility] [address] [place] [address] Demolitionist: SANDRA Ríosreatinine [Mass/Vol]0.7 mg/dLNormal0.7-1.2MPark SanitariumComment on above:Performed By: #### OSMO #### [facility] [address] [place] [address] Demolitionist: Pankaj Cordoba MDGFR/1.73 sq M.predicted among non-blacks MDRD (S/P/Bld) [Vol rate/Area]mL/min/{1.73_m2}Normal>60[facility] Medical CenterComment on above:Result Comment: These results are not intended for [...] or following therapy that affects renal tubular secretion.Performed By: #### OSMO #### [facility] [address] [place] [address] Demolitionist: Pankaj Cordoba MDGlucose [Mass/Vol]107 mg/rEYlzz70-97HmbacPark SanitariumComment on above:Performed By: #### OSMO #### [facility] [address] [place] [address] Demolitionist: MARIANELA Ríosotassium [Moles/Vol]4.8 mmol/LNormal3.7-5.3 [facility] Medical CenterComment on above:Result Comment: Specimen hemolysis has exceeded the interference as defined by Sindy. Value may be falsely increased. Suggest recollection if clinically indicated.Performed By: #### OSMO #### [facility] [address] [place] [address] Demolitionist: BASIM Ríosodium [Moles/Vol]121 mmol/POtg476-605YdfvwUniversity Hospitals Beachwood Medical CenterComment on above:Performed By: #### OSMO #### [facility] [address] [place] [address] Demolitionist: Pankaj Cordoba MDUrea nitrogen [Mass/Vol]13 mg/dLNormal8-23[facility] Medical CenterComment on above:Performed By: #### OSMO #### [facility] [address] [facility] [place] [address] Demolitionist: Pankaj Cordoba MDBasi Metabolic Panel w/ Reflex to MGon 43-72-6479Jyeau gap [Moles/Vol]11 mmol/L9 - 16 mmol/LBon [facility] Calcium [Mass/Vol]9 mg/dL8.6 - 10.4 mg/dLBon [facility] HealthChloride [Moles/Vol]90 mmol/LLow98 - 107 mmol/LBon Secours [facility]tering Memorial HospitalCO2 [Moles/Vol]20 mmol/L20 - 31 mmol/LBon [facility]ours [facility]tering Memorial HospitalCreatinine [Mass/Vol]0.7 mg/dL0.7 - 1.2 mg/dLBon [facility]ours Mer[facility] HealthEst, Glom Filt Rate- PINFBon [facility] Memorial Hospitalment on above: These results are not intended [...] therapy that affects renal tubular secretion. Glucose [Mass/Vol]107 mg/iCHnix12 - 99 mg/dLBon [facility] Interpretation and review of laboratory resultsAbnoAugusta Health Potassium [Moles/Vol]4.8 mmol/L3.7 - 5.3 mmol/LBon [facility] on above:Specimen hemolysis has exceeded the interference as defined by Sindy. Value may be falsely increased. Suggest recollection if clinically indicated. Sodium [Moles/Vol]121 mmol/KXxq601 - 145 mmol/LBon [facility] Hospital Of ColumbusUrea nitrogen [Mass/Vol]13 mg/dL8 - 23 mg/dLBon [facility] CenterCBC with Auto Differentialon 32-62-3485Mxkfariyf (Bld) [#/Vol]0.04 10*3/uLBon [facility] Hospital Of ColumbusBasophils/100 WBC (Bld)1 %0 - 2 %[facility] HealthcareEosinophils (Bld) [#/Vol]0.08 10*3/uLBon [facility] Eosinophils/100 WBC (Bld)1 %1 - 4 %[facility] HealthcareErythrocyte distribution width (RBC) [Ratio]13 %11.8 - 14.4 %[facility] Hematocrit (Bld) [Volume fraction]35.2 %Low40.7 - 50.3 %[facility] Hemoglobin (Bld) [Mass/Vol]12.3 g/dLLow13.0 - 17.0 g/dLBon [facility] Immature granulocytes (Bld) [#/Vol][facility] HealthcareImmature granulocytes/100 WBC (Bld)0 %0T[facility] HealthcareInterpretation and review of laboratory resultsAbnormReston Hospital CenterLymphocytes/100 WBC (Bld)23 %Low24 - 43 %[facility] HealthcareLymphocytes/100 WBC (Bld)1.68 %[facility] HospitalH (RBC) [Entitic mass]30.9 pg25.2 - 33.5 pgCarilion Stonewall Jackson HospitalHC (RBC) [Mass/Vol]34.9 g/yJEpry71.4 - 34.8 g/dLBon [facility] MCV (RBC) [Entitic vol]88.4 fL82.6 - 102.9 fLTwin County Regional Healthcare Monocytes/100 WBC (Bld)11 %3 - 12 %[facility] HealthcareMonocytes/100 WBC (Bld)0.8 %[facility] HealthcareNeutrophils/100 WBC (Bld)64 %36 - 65 %[facility] HealthcareNucleated RBC/100 WBC (Bld) [Ratio]0 %0.0 per 100 WBCTwin County Regional HealthcarePlatelet, Wdprjtruokxz265GadAdq [facility] Platelets (Bld) [#/Vol]See Reflexed IPF ResultTwin County Regional HealthcarePlatelets reticulated/100 platelets Auto (Bld)5.3 %1.1 - 10.3 %[facility] HealthcareRBC (Bld) [#/Vol]3.98 10*6/uLLow4.21 - 5.77 m/uLTwin County Regional HealthcareSegmented neutrophils/100 WBC (Bld)4.63 %[facility] HealthcareWBC other (Bld) [#/Vol] 7.2Bon SecKettering Health DaytonBon [facility]S Hospital Of ColumbusCBC with Diffon 06-03-2025 Abs. Basophil0.04 k/uLNormal0.00-0.20[facility] Medical CenterComment on above:Performed By: #### OSMO #### [facility] [address] [place] [address] Demolitionist: Valerio Ríos.Imm.Granulocyte<0.76Zisvni8.00-0.30[facility] Medical CenterComment on above:Performed By: #### OSMO #### [address] [address] Demolitionist: Valerio Ríos.Neutrophil (Seg)4.63 k/uLNormal1.50-8.10 [facility] Medical CenterComment on above:Performed By: #### OSMO #### [address] [address] Demolitionist: Pankaj Cordoba MDBasophils/100 WBC (Bld)1 %Normal0-2MPark SanitariumComment on above:Performed By: #### OSMO #### [address] [address] Demolitionist: Pankaj Cordoba MDEosinophils (Bld) [#/Vol]0.08 10*3/uLNormal 0.00-0.44[facility] CenterComment on above:Performed By: #### OSMO #### [address] [address] Demolitionist: Pankaj Cordoba MDEosinophils/100 WBC (Bld)1 %Normal1-4[facility] Medical CenterComment on above:Performed By: #### OSMO #### [address] [address] Demolitionist: Pankaj Cordoba MDErythrocyte distribution width (RBC) [Ratio]13.0 %Wshusz26.8-14.4[facility] Medical CenterComment on above:Performed By: #### OSMO #### [address] [address] Demolitionist: Pankaj Cordoba MDHematocrit (Bld) [Volume fraction]35.2 %Low 40.7-50.3Mohiohealth berger hospitaly John C. Fremont HospitalComment on above:Performed By: #### OSMO #### [address] [address] Demolitionist: Pankaj Cordoba MDHemoglobin (Bld) [Mass/Vol]12.3 g/dLLow13.0-17.0 [facility] CenterComment on above:Performed By: #### OSMO #### [address] [address] Demolitionist: Julio Ríosmature granulocytes/100 WBC (Bld)0 %Normal0 [facility] CenterComment on above:Performed By: #### OSMO #### [address] [address] Demolitionist: Pankaj Cordoba MDLymphocytes (Bld) [#/Vol]1.68 10*3/uLNormal 1.10-3.70[facility] Medical CenterComment on above:Performed By: #### OSMO #### [address] [address] Demolitionist: Valarie Ríosmphocytes/100 WBC (Bld)23 %Teu80-88EvfgdUniversity Hospitals Beachwood Medical CenterComment on above:Performed By: #### OSMO #### [address] [address] Demolitionist: MEG RíosCH (RBC) [Entitic mass]30.9 ejMuntwb03.2-33.5 [facility] CenterComment on above:Performed By: #### OSMO #### [address] [address] Demolitionist: BLANCA RíosC (RBC) [Mass/Vol]34.9 g/yEKbve56.4-34.8[facility]als Beachwood Medical CenterComment on above:Performed By: #### OSMO #### [address] [address] Demolitionist: Pankaj Madoff, MDMCV (RBC) [Entitic vol]88.4 nTQwptxd96.6-102.9 [facility] Medical CenterComment on above:Performed By: #### OSMO #### [address] [address] Demolitionist: MEG Ríosonocytes (Bld) [#/Vol]0.80 10*3/uLNormal 0.10-1.20[facility] Beachwood Medical CenterComment on above:Performed By: #### OSMO #### [place] [address] Demolitionist: MEG Ríosonocytes/100 WBC (Bld)11 %Normal3-12[facility] Beachwood Medical CenterComment on above:Performed By: #### OSMO #### [place] [address] Demolitionist: Dominick Ríosutrophil (Seg)64 %Zrfeem89-63XwbktUniversity Hospitals Beachwood Medical CenterComment on above:Performed By: #### OSMO #### [address] [address] Demolitionist: Pankaj Cordoba MDNRBC Automated0.0 per 100 WBCNormal0.0[facility] Beachwood Medical CenterComment on above:Performed By: #### OSMO #### [address] [address] Demolitionist: Aly Ríos CountSee Reflexed IPF ResultNormal 138-453[facility] Beachwood Medical CenterComment on above:Performed By: #### OSMO #### [address] [address] Demolitionist: Aly Ríos Fluoresc.132 k/mZOvn594-161AuglsUniversity Hospitals Beachwood Medical CenterComment on above:Performed By: #### OSMO #### [facility] [address] [place] [address] Demolitionist: MARIANELA RíosLT, Immature Fract.5.3 %Normal1.1-10.3[facility] Fremont HospitalComment on above:Performed By: #### OSMO #### [facility] [address] [place] [address] Demolitionist: Pankaj Cordoba MDRBC (Bld) [#/Vol]3.98 10*6/uLLow4.21-5.77[facility]. Fremont HospitalComment on above:Performed By: #### OSMO #### [facility] [address] [place] [address] Demolitionist: Pankaj Cordoba MDWBC (Bld) [#/Vol]7.2 10*3/uLNormal3.5-11.3[facility] Fremont HospitalComment on above:Performed By: #### OSMO #### [facility] [address] [place] [address] Demolitionist: Pankaj Cordoba MDElectrolyte Panelon 29-01-5352Mhyao gap [Moles/Vol]14 mmol/L9 - 16 mmol/LBon Secours Mercy HealthChloride [Moles/Vol]86 mmol/LLow98 - 107 mmol/LBon [facility]ours [facility] HealthCO2 [Moles/Vol]17 mmol/LLow20 - 31 mmol/LBon [facility] HealthInterpretation and review of laboratory results AbnormalBon Secours Mercy HealthPotassium [Moles/Vol]4.4 mmol/L3.7 - 5.3 mmol/L Bon SecInland Northwest Behavioral Healthy HealthComment on above:Specimen hemolysis has exceeded the interference as defined by Sindy. Value may be falsely increased. Suggest recollection if clinically indicated. Sodium [Moles/Vol]117 mmol/LCritically pph676 - 145 mmol/LBon Secours Mercy HealthBon [facility]ours Mercy HealthAnion gap [Moles/Vol]12 mmol/L9 - 16 mmol/LBon [facility] HealthChloride [Moles/Vol]89 mmol/LLow98 - 107 mmol/LBon [facility] ColumbusCO2 [Moles/Vol]19 mmol/LLow20 - 31 mmol/LBon [facility] Interpretation and review of laboratory resultsAbnormReston Hospital Center Potassium [Moles/Vol]4.5 mmol/L3.7 - 5.3 mmol/LBon [facility] ColumbusComment on above:Specimen hemolysis has exceeded the interference as defined by Sindy. Value may be falsely increased. Suggest recollection if clinically indicated. Sodium [Moles/Vol]120 mmol/PRmx690 - 145 mmol/LBon [facility] CenterElectrolyteson 62-20-1447Odwsq gap [Moles/Vol]14 mmol/L Normal9-16[facility] Medical CenterComment on above:Performed By: #### LYTE ####[facility] [address] [place] [address] Lab Director: Pankaj Cordoba MDChloride [Moles/Vol]86 mmol/JTtf09-781MrwujUniversity Hospitals Beachwood Medical CenterComment on above:Performed By: #### LYTE ####[facility] [address] [place] [address] Lab Director: Pankaj Cordoba MDCO2 [Moles/Vol]17 mmol/NCiw16-12KizicUniversity Hospitals Beachwood Medical Center Comment on above:Performed By: #### LYTE ####[facility] [address] [place] [address] Lab Director: Pankaj Cordoba MDPotassium [Moles/Vol]4.4 mmol/LNormal3.7-5.3MPark SanitariumComment on above:Result Comment: Specimen hemolysis has exceeded the interference as defined by Sindy. Value may be falsely increased. Suggest recollection if clinically indicated.Performed By: #### LYTE ####[facility] [address] [place] [address] Lab Director: Pankaj Cordoba MDSodium [Moles/Vol]117 mmol/LCritically xlt180-105 [facility] Medical CenterComment on above:Performed By: #### LYTE ####[facility] [address]ivugtrz[address] [place], [place] [id number])[phone] Director: Pankaj Cordoba MDAnion gap [Moles/Vol]12 mmol/LNormal9-16[facility] Medical CenterComment on above:Performed By: #### LYTE ####[facility] [address]wh[address]xf[address] [place], [place] [id number])[phone] Director: Pankaj Cordoba MDChloride [Moles/Vol]89 mmol/IAsm83-575AdhbdUniversity Hospitals Beachwood Medical Center Comment on above:Performed By: #### LYTE ####[facility] [address]fflwktf[address] [place], [place] [address]19)[phone] Director: Pankaj Cordoba MDCO2 [Moles/Vol] 19 mmol/OYse86-77UalzsUniversity Hospitals Beachwood Medical CenterComment on above:Performed By: #### LYTE ####[address] [place], [place] [address])[phone] Director: Pankaj Cordoba MDPotassium [Moles/Vol]4.5 mmol/LNormal3.7-5.3MPark SanitariumComment on above:Result Comment: Specimen hemolysis has exceeded the interference as defined by Sindy. Value may be falsely increased. Suggest recollection if clinically indicated.Performed By: #### LYTE ####[facility] [address] [place], [place] [address])[phone] Director: Pankaj Cordoba MDSodium [Moles/Vol]120 mmol/BSix813-712RigsuUniversity Hospitals Beachwood Medical CenterComment on above:Performed By: #### LYTE ####[facility] [address]eerzvdgs[address] [place], [place] [address]19)[phone] Director: Pankaj Cordoba MDGlucose,Whole Bloodon 58-89-9278Zphumxj [Mass/Vol]92 mg/xJXridqh85-030 [facility] Medical CenterGlucose [Mass/Vol]98 mg/nNJykphh73-900Hgwbp John C. Fremont HospitalGlucose [Mass/Vol]124 mg/wBAuxd96-137Rtlcl [facility] C. [facility] HospitalGlucose [Mass/Vol]117 mg/vFCdfz13-093Xtgoe John C. [facility]ont HospitalOsmolalityon 20-54-0284Yakfswqicirfst and review of laboratory results AbnormalTwin County Regional HealthcareOsmolality [Osmolality]251 mosm/kgLowBon [place] [facility] CenterOsmolality [Osmolality]251 mosm/kgLow 275-295MerAlhambra Hospital Medical CenterComment on above:Performed By: #### NIGEL #### [facility] [address] [place] [address] Demolitionist: JOSE Ríos Glucose Fingerstickon 37-51-9541Eqfhvku [Mass/Vol]92 mg/dL75 - 110 mg/dLBon [facility] Glucose [Mass/Vol]98 mg/dL75 - 110 mg/dLBon [facility] CenterGlucose [Mass/Vol]124 mg/fAMgyk84 - 110 mg/dLBon [facility] ColumbusInterpretation and review of laboratory resultsAbnoSioux Falls Surgical CenterGlucose [Mass/Vol]117 mg/tDYnov70 - 110 mg/dLBon [facility] ColumbusInterpretation and review of laboratory resultsAbBrookings Health SystemPREVIOUS SPECIMENon 89-88-2088Dxx [facility] 13-33-2172YZQ Coag (PPP) [Relative time]1.7 {INR}Normal [facility] Medical CenterComment on above:Result Comment: Therapeutic Range: Moderate Anticoagulant Intensity: INR = 2.0-3.0 High Anticoagulant Intensity: INR = 2.5-3.5Performed By: #### OSMO #### [facility] [address] [place] [address] Demolitionist: JAQUELINE Ríos Coag (PPP) [Time]20.3 sHigh11.7-14.9[facility] Medical CenterComment on above:Performed By: #### OSMO #### [facility] [address] [place] [address] Demolitionist: MARIANELA Ríosrotime-INRon 30-27-3108VJH Coag (PPP) [Relative time]1.7 {INR}T[facility] County Regional HealthcareComment on above: Therapeutic Range: Moderate Anticoagulant Intensity: INR = 2.0-3.0 High Anticoagulant Intensity: INR = 2.5-3.5 Interpretation and review of laboratory resultsAbnormReston Hospital Center PT Coag (PPP) [Time]20.3 sHighBon [facility] Basic Metab w/rfx MGon 37-09-9517Jaeuh gap [Moles/Vol]13 mmol/LNormal9-16[facility] Medical CenterComment on above:Performed By: #### BMPX, PT, CDP ####[facility] [address] [place], [place] [address])[phone] Director: Pankaj Cordoba MDCalcium [Mass/Vol]9.1 mg/dLNormal8.6-10.4[facility] Medical CenterComment on above:Performed By: #### BMPX, PT, CDP ####[facility] [address]cf[address] [place] [address] Lab Director: Pankaj Cordoba MDChloride [Moles/Vol]96 mmol/GWpk10-786QbeveUniversity Hospitals Beachwood Medical Center Comment on above:Performed By: #### BMPX, PT, CDP ####[facility] [address]388 [place] [address] Lab Director: Pankaj Cordoba MDCO2 [Moles/Vol]20 mmol/FGbiybd30-45RejvqUniversity Hospitals Beachwood Medical CenterComment on above: Performed By: #### BMPX, PT, CDP ####[facility] [address]cb[address]bkuh[address] [place], [place] [phone] Director: SANDRA Ríosreatinine [Mass/Vol]0.8 mg/dLNormal0.7-1.2[facility] Fremont HospitalComment on above:Performed By: #### BESSX PT, CDP ####[facility] [address] [place] [address] Lab Director: Pankaj Cordoba MDGFR/1.73 sq M.predicted among non-blacks MDRD (S/P/Bld) [Vol rate/Area]88 mL/min/{1.73_m2}Normal>60[facility] Medical CenterComment on above:Result Comment: These results are not intended for [...] or following therapy that affects renal tubular secretion.Performed By: #### BESSX, PT, CDP ####[facility] [address] [place] [address] Lab Director: Pankaj Cordoba MDGlucose [Mass/Vol]117 mg/oFBnyb66-72CnsioPark SanitariumComment on above:Performed By: #### TONIE PT, CDP ####[facility] [address] [place] [address] Lab Director: Pankaj Cordoba MDPotassium [Moles/Vol]4.7 mmol/LNormal3.7-5.3[facility]remont HospitalComment on above:Performed By: #### BMPX, PT, CDP ####[facility] [address]qxgu[address] [place] [address] Lab Director: Pankaj Cordoba MDSodium [Moles/Vol]129 mmol/UNnx793-913TetvtUniversity Hospitals Beachwood Medical Center Comment on above:Performed By: #### BMPX, PT, CDP ####[facility] [address] [place] [address] Lab Director: Pankaj Cordoba MDUrea nitrogen [Mass/Vol]16 mg/dLNormal8-23[facility] CenterComment on above:Performed By: #### BMPX, PT, CDP ####[facility] [address] [place] [address] lab Director: Pankaj Cordoba MDBasi Metabolic Panel w/ Reflex to MGon 04-06-6238Deulx gap [Moles/Vol]13 mmol/L9 - 16 mmol/LBon [facility] Attune SystemsCalcium [Mass/Vol]9.1 mg/dL8.6 - 10.4 mg/dLBon [facility] Attune SystemsChloride [Moles/Vol]96 mmol/LLow98 - 107 mmol/LBon [facility] CenterVquence TrihealthPit My PetCO2 [Moles/Vol]20 mmol/L20 - 31 mmol/LBon [facility] Attune SystemsCreatinine [Mass/Vol]0.8 mg/dL0.7 - 1.2 mg/dLBon [facility] CenterLending WorksEst, Glom Filt Rate88- PINFBon [facility] Medical Centercicayda [facility] Medical CenterComment on above: These results are not intended [...] therapy that affects renal tubular secretion. Glucose [Mass/Vol]117 mg/uUJcmc35 - 99 mg/dLBon [facility] [employer] Interpretation and review of laboratory resultsAbnormalBon [facility] [employer] Potassium [Moles/Vol]4.7 mmol/L3.7 - 5.3 mmol/LBon [facility] CenterLending WorksSodium [Moles/Vol]129 mmol/CTfc409 - 145 mmol/LBon [facility] CenterLending WorksUrea nitrogen [Mass/Vol]16 mg/dL8 - 23 mg/dLBon [facility] [employer] CBC with Auto Differentialon 76-45-6615Ifqoqzqsk (Bld) [#/Vol]0.06 10*3/uLBon [facility] HealthBasophils/100 WBC (Bld)1 %0 - 2 %[facility] Health Eosinophils (Bld) [#/Vol]0.08 10*3/uLBon [facility]ours [facility] HealthEosinophils/100 WBC (Bld)1 %1 - 4 %[facility] HealthErythrocyte distribution width (RBC) [Ratio]13.2 %11.8 - 14.4 %[facility] Trihealthy HealthHematocrit (Bld) [Volume fraction]36.5 %Low40.7 - 50.3 %[facility] Trihealthy HealthHemoglobin (Bld) [Mass/Vol]12.3 g/dLLow13.0 - 17.0 g/dLBon Secours Kettering Memorial HospitalImmature granulocytes (Bld) [#/Vol][facility] HealthImmature granulocytes/100 WBC (Bld)0 %0[facility] HealthInterpretation and review of laboratory results AbnormalBon [facility]ours [facility] HealthLymphocytes/100 WBC (Bld)25 %24 - 43 %[facility] HealthLymphocytes/100 WBC (Bld)1.93 %[facility] Orthopedic CenterH (RBC) [Entitic mass]30.7 pg25.2 - 33.5 pgBon Secours Crystal Clinic Orthopedic CenterHC (RBC) [Mass/Vol]33.7 g/dL28.4 - 34.8 g/dLBon Secours Crystal Clinic Orthopedic CenterV (RBC) [Entitic vol]91 fL82.6 - 102.9 fLBon Secours Mercy HealthMonocytes/100 WBC (Bld)11 %3 - 12 %[facility] HealthMonocytes/100 WBC (Bld)0.84 %[facility] HealthNeutrophils/100 WBC (Bld)62 %36 - 65 %[facility] Trihealthy [facility] CenterNucleated RBC/100 WBC (Bld) [Ratio]0 %0.0 per 100 WBCBon Secours Trihealthy HealthPlatelet mean volume (Bld) [Entitic vol]11.3 fL8.1 - 13.5 fLBon Secours Trihealthy HealthPlatelets (Bld) [#/Vol]147 10*3/uLBon [facility] Hospital Of ColumbusRBC (Bld) [#/Vol]4.01 10*6/uLLow 4.21 - 5.77 m/uLBon [facility] Hospital Of ColumbusSegmented neutrophils/100 WBC (Bld)4.88 %Bon [facility] Of ColumbusWBC other (Bld) [#/Vol]7.8Bon [place] [facility] CenterCBC with Diffon 13-24-2101Ujm. Basophil0.06 k/uLNormal 0.00-0.20[facility] CenterComment on above:Performed By: #### BMPX, PT, CDP ####[facility] [address] [place], [place] [address])[phone] Director: MDAbs. MichoacanoImm.Granulocyte<0.03Normal 0.00-0.30[facility] Medical CenterComment on above:Performed By: #### BMPX, PT, CDP ####[facility] [address] [place], [place] [id number])[phone] Director: Valerio Ríos.Neutrophil (Seg)4.88 k/uL Normal1.50-8.10[facility] Medical CenterComment on above:Performed By: #### BMPX, PT, CDP ####[facility] [address]dfyel[address]jjjs[address] [place], [place] [address]19)[phone] Director: Pankaj Cordoba MDBasophils/100 WBC (Bld)1 % Normal0-2MPark SanitariumComment on above:Performed By: #### BMPX, PT, CDP ####[facility] [address]ib[address]wk[address] [place], [place] [phone] Director: Pankaj Cordoba MDEosinophils (Bld) [#/Vol]0.08 10*3/uLNormal0.00-0.44[facility] CenterComment on above:Performed By: #### BMPX, PT, CDP ####[facility] [address] [place], [place] [address]8419)[phone] Director: Pankaj Cordoba MDEosinophils/100 WBC (Bld)1 % Normal1-4[facility] Medical CenterComment on above:Performed By: #### BMPX, PT, CDP ####[facility] [address] [place], [place] 56380419)[phone] Director: Pankaj Cordoba MDErythrocyte distribution width (RBC) [Ratio]13.2 %Pzzpqx06.8-14.4[facility] CenterComment on above:Performed By: #### BMPX, PT, CDP ####[facility] [address]ew[address]agjjwv[address] [place], [place] [address])[phone] Director: Pankaj Cordoba MDHematocrit (Bld) [Volume fraction]36.5 %Low40.7-50.3[facility]rem[facility] HospitalComment on above:Performed By: #### BMPX, PT, CDP ####[facility] [address]joemg[address] [place], [place] [address])[phone] Director: Pankaj Cordoba MDHemoglobin (Bld) [Mass/Vol]12.3 g/dLLow13.0-17.0[facility] CenterComment on above: Performed By: #### BMPX, PT, CDP ####[facility] Kcviyub[address]nsn14[address] [place], [place] [address])[phone] Director: Pankaj Cordoba MDImmature granulocytes/100 WBC (Bld)0 %Bqxmho5UybqpUniversity Hospitals Beachwood Medical CenterComment on above:Performed By: #### BMPX, PT, CDP ####[facility] [address]qqllxndbi[address] [place], [place] [address])[phone] Director: Pankaj Cordoba MDLymphocytes (Bld) [#/Vol]1.93 10*3/uLNormal1.10-3.70[facility] CenterComment on above:Performed By: #### BMPX, PT, CDP ####[facility] [address]ksrexyl[address] [place], [place] 78133419)[phone] Director: Pankaj Cordoba MDLymphocytes/100 WBC (Bld)25 % Svnmjp28-87NgpapUniversity Hospitals Beachwood Medical CenterComment on above:Performed By: #### BMPX, PT, CDP ####[facility] [address]vyo36[address] [place], [place] [address]019419)[phone] Director: MEG RíosCH (RBC) [Entitic mass]30.7 ruWlolbe84.2-33.5[facility] CenterComment on above:Performed By: #### BMPX, PT, CDP ####[facility] Qggnejnpwcev[address]67 [place], [place] 21005419)[phone] Director: MEG RíosCHC (RBC) [Mass/Vol]33.7 g/dL Iqkdxh41.4-34.8[facility] CenterComment on above:Performed By: #### BMPX, PT, CDP ####[facility] Pneq[address]hs[address]12[address] [place], [place] [address]1214419)[phone] Director: MEG RíosCV (RBC) [Entitic vol]91.0 fL Wsooeg70.6-102.9[facility] Medical CenterComment on above:Performed By: #### BMPX, PT, CDP ####[facility] Nnmcszqhwdyi4684 [place], [place] [address]657419)[phone] Director: Pankaj Cordboa MDMonocytes (Bld) [#/Vol]0.84 10*3/uLNormal0.10-1.20[facility] CenterComment on above:Performed By: #### BMPX, PT, CDP ####[facility] Vqzoymsufjwm8225 [place], [place] [address]19)[phone] Director: Pankaj Cordoba MDMonocytes/100 WBC (Bld)11 % Normal3-12[facility] CenterComment on above:Performed By: #### BMPX, PT, CDP ####[facility] Vmujimwtowjx36[address] [place] [address] Lab Director: Dominick Ríosutrophil (Seg)62 %Normal 36-65[facility] Medical CenterComment on above:Performed By: #### BMPX, PT, CDP ####[facility] [address]wg[address]suobko[address] [place], [place] [address]19)[phone] Director: Pankaj Cordoba MDNRBC Automated0.0 per 100 WBCNormal0.0[facility] CenterComment on above:Performed By: #### BMPX, PT, CDP ####[facility] [address]fjbrcjovg[address]65 [place] [address] Lab Director: Aly Ríos mean volume (Bld) [Entitic vol]11.3 fLNormal8.1-13.5 [facility] CenterComment on above:Performed By: #### BMPX, PT, CDP ####[facility] Rz[address]umpymtci[address]7 [place] [address] Lab Director: Austen Ríosteyossi (Bld) [#/Vol]147 10*3/lCDdrirp284-284JwuhwUniversity Hospitals Beachwood Medical CenterComment on above:Performed By: #### BMPX, PT, CDP ####[facility] [address]vshbhiyddcz8838 [place] [address] Lab Director: MAURI RíosBC (Bld) [#/Vol]4.01 10*6/uLLow4.21-5.77[facility] CenterComment on above:Performed By: #### BMPX, PT, CDP ####[facility] [address]uqsioktkyb1593 [place] [address] Lab Director: DINESH RíosBC (Bld) [#/Vol]7.8 10*3/uLNormal3.5-11.3MPark SanitariumComment on above:Performed By: #### BMPX, PT, CDP ####[facility] Rekxq[address]iv[address] [place], [place] 0[address] Lab Director: Pankaj Cordoba MDGlucose,Whole Bloodon 69-72-4748Blcfrta [Mass/Vol]127 mg/xTQnwe14-187 [facility] Medical CenterGlucose [Mass/Vol]109 mg/nPCqorjc77-284FxvecUniversity Hospitals Beachwood Medical CenterGlucose [Mass/Vol]110 mg/jFTnhwry55-821UtieuUniversity Hospitals Beachwood Medical CenterPOC Glucose Fingerstickon 01-75-1284Sadwdlq [Mass/Vol]127 mg/dL High75 - 110 mg/dLBon [facility] Of ColumbusInterpretation and review of laboratory resultsAbnormalBath Community Hospital Glucose [Mass/Vol]109 mg/dL75 - 110 mg/dLBon [place] [facility] CenterGlucose [Mass/Vol]110 mg/dL75 - 110 mg/dLBon [facility] 73-45-4044HNU Coag (PPP) [Relative time]1.9 {INR} NormalUniversity Hospitals Beachwood Medical CenterComment on above:Result Comment: Therapeutic Range: Moderate Anticoagulant Intensity: INR = 2.0-3.0 High Anticoagulant Intensity: INR = 2.5-3.5Performed By: #### BMPX, PT, CDP ####[facility] Lfmbzxdbmrux[address] [place], [place] 4033808 Lab Director: JAQUELINE Ríos Coag (PPP) [Time]22.2 sHigh11.7-14.9[facility] Medical CenterComment on above:Performed By: #### BMPX, PT, CDP ####[facility] [address]zc[address]qi[address] [place], [place] 8155308 Lab Director: Swapna Ríosime-INRon 71-22-1155SBZ Coag (PPP) [Relative time]1.9 {INR}[facility] County Regional HealthcareComment on above: Therapeutic Range: Moderate Anticoagulant Intensity: INR = 2.0-3.0 High Anticoagulant Intensity: INR = 2.5-3.5 Interpretation and review of laboratory resultsAbnoAugusta Health PT Coag (PPP) [Time]22.2 sHighBon [facility] CHEMISTRYOrdered By: Christine Stevens on 43-42-1510Jqwrjzi DL <= 20 mg/L (U) [Mass/Vol]mg/dLNormal0.0 - 1.9 mg/dLRemisol ChemAlbumin/Creatinine DL <= 20 mg/L (U) [Mass ratio]NOT CALCULATEDInvalid Interpretation Code0.0 - 30.0Remisol Chem Comment on above:Interpretive Data: 30-300 mg/g Cr indicates an increased risk for diabetic nephropathy. >300 mg/g Cr is consistent with clinical nephropathy.U Izlhirdsmc97.9 mg/dL Invalid Interpretation CodeRemisol ChemCHEMISTRYOrdered By: SYSTEM SYSTEM on 00-34-0014Qrkbnvsnxlb [Mass/Vol]150 mg/wIQvsxcq227 - 200 mg/dLRemisol Chem Cholesterol in HDL [Mass/Vol]57 mg/dLInvalid Interpretation CodeRemisol Chem Comment on above:Result Comment: '>= 60 LOW RISK' '<= 40 HIGH RISK'Cholesterol in LDL [Mass/Vol]77 mg/dLNormal<=129mg/dLRemisol ChemCholesterol in VLDL [Mass/Vol]11 mg/dLNormal7 - 40 mg/dLRemisol Chem Triglyceride [Mass/Vol]53 mg/dLNormal<=149mg/dLRemisol ChemCHEMISTRYOrdered By: Roberta Julien on 53-37-6774ItE1m (Bld) [Mass fraction]5.6 %Normal<=5.9%[facility] TvfySafdFLLqnV1wph 63-64-0136WjD9m (Bld) [Mass fraction]5.6 %Normal<=5.9[facility] Arms HospitalComment on above:Performed By: #### [id number] #### [facility] [address] [place], [place] [address]Webks Panelon 41-94-6369Ghnpyjzmkbw [Mass/Vol]150 mg/dLNormal 120-200[facility] HospitalComment on above:Performed By: #### [id number] #### [facility] [address] [place], [place] [address]Fbuvhiqbhfh in HDL [Mass/Vol]57 mg/dLInvalid Interpretation CodeSheltering Arms HospitalComment on above:Result Comment: '>= 60 LOW RISK' '<= 40 HIGH RISK'Performed By: #### [id number] #### [facility] [address] [place], [place] [address]Xonxpjzovmi in LDL [Mass/Vol]77 mg/dLNormal<=129S[facility] HospitalComment on above:Performed By: #### [id number] #### [facility] [address] [place], [place] [address]Pehdaqpuzvi in VLDL [Mass/Vol]11 mg/dLNormal7-40S[facility] HospitalComment on above:Performed By: #### [id number] #### [facility] [address] [place], [place] [address]Llswsruqynsj [Mass/Vol]53 mg/dLNormal<=149S[facility] HospitalComment on above:Performed By: #### [id number] #### [facility] [address] [place], [place] [address]H MA/Cr Ratioon 41-08-8195Bhszjtho/Cr RatioNOT CALCULATED Invalid Interpretation Code.0-30.0[facility] HospitalComment on above: Result Comment: 30-300 mg/g Cr indicates an increased risk for diabetic nephropathy. >300 mg/g Cr is consistent with clinical nephropathy.Performed By: #### [id number] #### [facility] [address] [place], [place] [address]T Pbxvkuggai42.9 mg/dLInvalid Interpretation CodeSheltering Arms HospitalComment on above:Performed By: #### [id number] #### [facility] [address] [place], [place] [address]H Microalb<0.4Xqzpwf1.0-1.9[facility] HospitalComment on above:Performed By: #### [id number] #### [facility] [address] [place], [place] [address]Cmqpemntjy Visit Summaryon 10-75-0712Oejbylujrs Visit Summary Ambulatory Visit Summary DARIEL ZABALA [...] Appointments Tuesday 8:20 AM EDT With: Where: [address] [address]- Tuesday 10:40 AM EDT With: YANIQUE MCNEILL CNP Where: [address] [address]- Tuesday2025 8:00 AM EDT With: Where: [address] [address]- You Need to Complete the Following HgbA1c, Blood, Routine collect, 05/09/25, Order for future visit, Lab Collect, DM type 2 causing vascular disease, Required & Missing, Print Label By Order Location Lipid Panel, Blood, Routine collect, 05/09/25, Order for future visit, Lab Collect, Hyperlipidemia DM type 2 causing vascular disease, Required & Missing, Print Label By Order Location Urine Microalbumin/Creatinine Ratio, Urine, Routine collect, 05/09/25, Order for [...] [facility] Pharm[facility]: [address] [facility] Madeline MataANDERSON [phone] Allergies No Known Medication Allergies Problems Ongoing [...] of 25.0-25.9 in a (more content not included)...Normal [facility] Medicine Office/Clinic Noteon 22-64-1404Jqrapc Medicine Office/Clinic NoteFaleonard morse hospital Medicine Office/Clinic Note Chief Complaint Subsequent Medicare [...] to provide direct supervision at the time ofthis visit. I have provided supervision of the care team and have reviewed this chart and office note and agree with the plan of care. Assessment/Plan 1. Encounter for subsequent annual wellness visit (AWV) in Medicare patient (Z00.00: Encounter for general adult medical examination without abnormal findings) Patient in office today for his Medicare Wellness Visit. A customized and personalized print out ofall the current AHRQ USPSTF???s recommendations for preventative services and all current CDC recommended immunizations, relevant risk recommendations and the following patient brochures were given. Reviewed What can I expect during my Medicare preventative care visit CDC-Falls Prevention and home safety screening reviewed. Patient reports 3 falls in last 12 months,voices worry about falling, exhibits no problems with sitting and standing. Pt voices understandingwith keeping walk way area free of clutter to prevent tripping and/or falling. [place] Advance Directives reviewed, at home. Encouraged to [...] patient requests, he will have completed at [facility] prior to next PCP visit. Colonoscopy screenings [...] is due for yearly DM foot check. Remindedpatient to perform at home foot checks to prevent future complications, wash with soap and water, apply lotion to bilateral feet and in-between toes to prevent dryness and/or cracking. Wear proper fitting shoes and loose fitting socks and/or hose. Encouraged to do yearly. DM eye exams. A1C, urine mi croalbumin and creatinine ordered. 3. Longstanding persistent atrial [...] are overweight. Voices understandin (more content not included)...Corey HospitalComment on above:Result Comment: Electronically Signed By: YANIQUE MCNEILL CNP\.br\Date and Time Signed: 05/09/25 11:11 EDT\.br\Electronically Co-Signed By: Angelica Crews\.br\Date and Time Co-Signed: 05/09/25 11:02EDTAmbulatory Visit Summaryon 20-28-9124Dbupjvqbpz Visit SummaryAmbulatory Visit Summary DARIEL ZABALA :1940 Visit Date:02/05/2025 Ambulatory Visit Instructions Your Diagnosis Hyponatremia BMI 25.0-25.9,adult Nonsmoker Overweight (BMI 25.0-29.9) Your Care Team Attending Physician - Edwin Garcia MD Primary Care Physician - Edwin Garcia MD. [...] Follow-Up Appointments 2024 8:00 AM EDT Where: [place] [id number]- Medications What How Much When Instructions Unchanged [...] See instructions TAKE 1 TABLET DAILY ON ANEMPTY STOMACH Unchanged meloxicam (meloxicam 7.5 mg Tab) [...] you for choosing us for your care. NormalSheltering Arms HospitalBMPon 99-30-9476Wjcvs gap [Moles/Vol]8 mmol/LNormal6-16S[facility] HospitalComment on above: Performed By: #### [id number] #### [facility] [address] [place], [place] [address]Kjdllov [Mass/Vol]8.8 mg/dLLow8.9-11.1[facility] CenterComment on above:Performed By: #### [id number] #### [facility] [address] [place], [place] [address]Asrocsth [Moles/Vol]99 mmol/FHsb261-956OophihSheltering Arms HospitalComment on above:Performed By: #### [id number] #### [facility] [address] [place], [place] [address]JN4 [Moles/Vol]28 mmol/XWxzquo64-07YegtrvSheltering Arms Hospital Comment on above:Performed By: #### [id number] #### [facility] [address] [place], [place] [address]Btzjuzxuhn [Mass/Vol]1.0 mg/dLNormal0.5-1.3[facility] Medical CenterComment on above:Performed By: #### [id number] #### [facility] [address] [place], [place] [address]Ayftexh [Mass/Vol]104 mg/sZHfitwr78-491MyyupnSheltering Arms HospitalComment on above:Performed By: #### [id number] #### [facility] [address] [place], [place] [address]Dmchexupp [Moles/Vol]4.2 mmol/LNormal3.5-5.3[facility] Medical CenterComment on above:Performed By: #### [id number] #### [facility] [address] [place] [address]Joahbe [Moles/Vol]131 mmol/ODxs729-420EntcqxSheltering Arms HospitalComment on above:Performed By: #### [id number] #### [facility] [address] [place] [address]Nkkz nitrogen [Mass/Vol]13 mg/dLNormal5-21S[facility] Arms HospitalComment on above:Performed By: #### [id number] #### [facility] [address] [place] [address]Iosw nitrogen/Creatinine [Mass ratio]13 No YeamnKenanc34-57 [facility] HospitalComment on above:Performed By: #### [id number] #### [facility] [address] [place], [place] [address]YEOLLOIGIEbmysjl By: SYSTEM SYSTEM on 67-79-1144Gitvk gap [Moles/Vol]8 mmol/LNormal6 - 16 mEq/LRemisol ChemCalcium [Mass/Vol]8.8 mg/dLLow 8.9 - 11.1 mg/dLRemisol ChemChloride [Moles/Vol]99 mmol/JTiz813 - 111 mmol/L Remisol ChemCO2 [Moles/Vol]28 mmol/GSlqxym80 - 31 mmol/LRemisol ChemCreatinine [Mass/Vol]1.0 mg/dLNormal0.5 - 1.3 mg/dLRemisol FwstoNTV29 mL/min/1.73 h1Xsamck >=59mL/min/1.73 i9Zdeksda ChemGlucose [Mass/Vol]104 mg/fRSxkicr86 - 199 mg/dL Remisol ChemPotassium [Moles/Vol]4.2 mmol/LNormal3.5 - 5.3 mmol/LRemisol Chem Sodium [Moles/Vol]131 mmol/WXvm594 - 145 mmol/LRemisol ChemUrea nitrogen [Mass/Vol]13 mg/dLNormal5 - 21 mg/dLRemisol ChemUrea nitrogen/Creatinine [Mass ratio]13 mg/aiGuaohf96 - 20Remisol ChemFaleonard morse hospital Medicine Office/Clinic Noteon 88-02-6829Oxyttf Medicine Office/Clinic NoteFaleonard morse hospital Medicine Office/Clinic Note Chief Complaint Sodium Re [...] reports as effective. Ongoing follow-up with a learning technologies specialist is planned for later in February. [...] level of consciousness appropriate for age, CN II- XII intact, motor strength equal & normal bilaterally, speech normal Abdomen: Soft, Non-tender, Non-distended, + Bowel sounds Assessment/Plan 1. Hyponatremia (E87.1: Hypo-osmolality and hyponatremia) Symptoms are resolving however patient sodium is still low. We will treat for symptoms not number. Patient to follow-up with nephrology next month. Will recheck sodium today to make sure it stable atthe 129. 2. BMI 25.0-25.9,adult (Z68.25: Body mass [...] Index (BMI) 25.0-25.9, adult presenting with a follow-upfor sodium levels. The patient's sodium levels have reportedly improved, and there is no increase in dizziness, which is indicative of effective sodium management. Planned nephrology follow-up is to occur later in February. During this visit, I discussed with the patient the status of their sodium levels, noting the improvement in symptoms such as dizziness, which suggests effective management with the current dosage oftwo tablets daily. There was a confirmation of an upcoming appointment with a learning technologies specialist later inApril to further assess their renal health and sodium levels. The patient feels that sodium levels are stable, and today???s visit is primarily to verify that conclusion through testing. No new interventions or modifications to the treatment regimen were necessary at this point. Future plans involve continued evaluation and management of sodium levels as per nephrology's guidance. All informationand management decisions were reviewed with the patient, [...] Synthroid 25 mcg(0.025 mg) (more content not included)...NormalSheltering Arms HospitalComment on above:Result Comment: Electronically Signed By: Adam COHN, Edwin Lopez.br\Date and Time Signed: 02/05/25 13:47 EDTeGFRon 45-58-3567iPGM 75 mL/min/1.73 e6Ckfhug>=59S[facility] HospitalComment on above:Performed By: #### [id number] #### [facility] [address] [place], [place] [address]Xfgyjdxfri Visit Summaryon 57-37-4925Djtcmokzfg Visit Summary Ambulatory Visit Summary CLIFFORDDARIEL Solitario [...] PM EDT With: Edwin Garcia MD Where: [address] [address] 2024 8:00 AM EDT With: Where: [address] [address]- Medications What How Much When Instructions Changed sodium chloride (Sodium Chloride 1 g oral tablet) See instructions 1 gram orally BID Pickat [facility] Unchanged [...] See instructions TAKE 1 TABLET DAILY ON ANEMPTY STOMACH Contact prescribing physician if questions or concerns Unchanged meloxicam (meloxicam 7.5 mg Tab) 1 Tablets By Mouth Every day TAKE 1 TABLET DAILY Contactprescribing physician if questions or concerns Unchanged omeprazole [...] [facility] Pharmacy: [address] [facility] ANDERSON Cristobal [phone] Allergies No Known Medication Allergies Problems Ongoing [...] of 25.0-25.9 in adult (more content not included)...Normal [facility] HospitalBMPon 87-30-8680Tfkar gap [Moles/Vol]9 mmol/LNormal 6-16[facility] HospitalComment on above:Performed By: #### [id number] #### [facility] [address] [place], [place] [address]Yudbede [Mass/Vol]8.8 mg/dLLow8.9-11.1FMadison HealthComment on above:Performed By: #### [id number] #### [facility] [address] [place], [place] [address]Wbfglzdw [Moles/Vol]98 mmol/INwl128-155YshyopSheltering Arms HospitalComment on above:Performed By: #### [id number] #### [facility] [address], [place] [address]VU1 [Moles/Vol]27 mmol/UWmfmmr66-98HeziphSheltering Arms Hospital Comment on above:Performed By: #### [id number] #### [facility] [address] [place], [place] [address]Kpvxfijnhf [Mass/Vol]1.0 mg/dLNormal0.5-1.3FMadison HealthComment on above:Performed By: #### [id number] #### [facility] [address] [place], [place] [address]Tvabojn [Mass/Vol]114 mg/aGFzfrcb89-867YznmkdSheltering Arms HospitalComment on above:Performed By: #### [id number] #### [facility] [address], [place] [address]Tuhxtxohx [Moles/Vol]4.5 mmol/LNormal3.5-5.3FMadison HealthComment on above:Performed By: #### [id number] #### [facility] [address] [place], [place] [address]Utbgdp [Moles/Vol]129 mmol/NZuj535-297BlrunrSheltering Arms HospitalComment on above:Performed By: #### [id number] #### [facility] [address] [place], [place] [address]Dtjj nitrogen [Mass/Vol]12 mg/dLNormal5-21S[facility] Arms HospitalComment on above:Performed By: #### [id number] #### [facility] [address] [place], [place] [address]Ckzy nitrogen/Creatinine [Mass ratio]12 No KtqwlSccrag04-28 [facility] HospitalComment on above:Performed By: #### [id number] #### [facility] [address] [place], [place] [address]FRRSWEZMGVoaziih By: SYSTEM SYSTEM on 69-26-3880Bxxir gap [Moles/Vol]9 mmol/LNormal6 - 16 mEq/LRemisol ChemCalcium [Mass/Vol]8.8 mg/dLLow 8.9 - 11.1 mg/dLRemisol ChemChloride [Moles/Vol]98 mmol/EXsp803 - 111 mmol/L Remisol ChemCO2 [Moles/Vol]27 mmol/MWdpqev85 - 31 mmol/LRemisol ChemCreatinine [Mass/Vol]1.0 mg/dLNormal0.5 - 1.3 mg/dLRemisol BrvmgKHS71 mL/min/1.73 k3Fczpox >=59mL/min/1.73 i0Knjpyil ChemGlucose [Mass/Vol]114 mg/oWKnzwoo26 - 199 mg/dL Remisol ChemPotassium [Moles/Vol]4.5 mmol/LNormal3.5 - 5.3 mmol/LRemisol Chem Sodium [Moles/Vol]129 mmol/GVtb506 - 145 mmol/LRemisol ChemTSH Qn2.69 m[IU]/L Normal0.34 - 5.60 mcIU/mLRemisol ChemUrea nitrogen [Mass/Vol]12 mg/dLNormal5 - 21 mg/dLRemisol ChemUrea nitrogen/Creatinine [Mass ratio]12 mg/qbIqrdof35 - 20 Remisol ChemFamily Medicine Office/Clinic Noteon 80-27-6261Xejcwn Medicine Office/Clinic NoteFamily Medicine Office/Clinic Note Chief Complaint Reassess Sodium [...] hyponatremia as the primary concern. He has beenmanaging low sodium levels with sodium tablets taken [...] wear the damaged aids, requiring a future director of financial planning visit to resolve this issue. Moreover, the patient is under management for hypothyroidism, consistently taking his prescribed thyroid medication as directed. He denies experiencing notable symptoms of hypothyroidism, such as coldness or heightened fatigue. His reported increased daytime sleep appears to be associated more withlifestyle factors than with hypothyroidism. - Monitoring and follow-up for hyponatremia through scheduled nephrology appointment. - Anticipated director of financial planning visit for hearing aid assessment and repair [...] level of consciousness appropriate for age, CN II- XII intact, motor strength equal & normal bilaterally, [...] The patient will follow up with a learning technologies specialist for further evaluation and management of hyponatremia. We will adjust the sodium supplementation based on the upcoming lab results. Ordered: Basic Metabolic Panel Lab Specimen Collect [id number] TSH With T4fr Reflex 5. 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 An appointmentwith an appropriate director of financial planning has been planned to assess and replace [...] monitored to ensure therap (more content not included)...Corey HospitalComment on above:Result Comment: Electronically Signed By: Adam COHN, Edwin Cole\.br\Date and Time Signed: 01/24/25 14:16 EDTTSH With T4fr Reflexon 73-80-8549GUB Qn2.69 m[IU]/LNormal0.34-5.60S[facility] HospitalComment on above:Performed By: #### [id number] #### [facility] [address] [place], [place] [address]uRYGep 74-69-0508kHRG15 mL/min/1.73 e2Plbkyk>=59S[facility] HospitalComment on above:Performed By: #### [id number] #### [facility] [address] [place], [place] [address]Fmcgpilogz Healthon 37-11-5330FscilwomivWellSpan Health Case Information Case Priority: None Programs: -- Referral Source: Accounts Payable Lead Referral Reason: Care coordination Case Type: Transition [...] normal activities and chores without any difficulties. Noteshe does lose things or misplaces them at times. [facility] service discussed and offered to patient, he dec lines at this time. Patient denies any further [...] See tcm note. Created By: Alec Rodrigez RNParma Community General HospitalBMPon 01-09-2025 Anion gap [Moles/Vol]9 mmol/LNormal6-16[facility] HospitalComment on above:Performed By: #### [id number] #### [facility] [address] [place], [place] [address]Xmopqfl [Mass/Vol]9.0 mg/dLNormal8.9-11.1[facility] CenterComment on above:Performed By: #### [id number] #### [facility] [address] [place], [place] [address]Rhxhqtfz [Moles/Vol]93 mmol/HWas632-729QbmrxgSheltering Arms HospitalComment on above:Performed By: #### [id number] #### [facility] [address] [place], [place] [address]LD1 [Moles/Vol]27 mmol/YAaqucy34-53NcscrsSheltering Arms Hospital Comment on above:Performed By: #### [id number] #### [facility] [address] [place], [place] [address]Bihshxsnyq [Mass/Vol]0.8 mg/dLNormal0.5-1.3FMadison HealthComment on above:Performed By: #### [id number] #### [facility] [address] [place], [place] [address]Pzgjazg [Mass/Vol]110 mg/zNZcdlhh31-784CzbfuaSheltering Arms HospitalComment on above:Performed By: #### [id number] #### [facility] [address] [place], [place] [address]Ctvxbbalx [Moles/Vol]4.1 mmol/LNormal3.5-5.3FMadison HealthComment on above:Performed By: #### [id number] #### [facility] [address] [place], [place] [address]Mgxwla [Moles/Vol]125 mmol/BUgx771-909TmliefSheltering Arms HospitalComment on above:Performed By: #### [id number] #### [facility] [address] [place] [address]Wzlx nitrogen [Mass/Vol]12 mg/dLNormal5-21S[facility] HospitalComment on above:Performed By: #### [id number] #### [facility] [address] [place], [place] [address]Iyfs nitrogen/Creatinine [Mass ratio]15 No JznsvXiaczq88-02 [facility] HospitalComment on above:Performed By: #### [id number] #### [facility] [address] [place], [place] [address]FZOWGFAKVOvbzcew By: SYSTEM SYSTEM on 88-77-5739Rdeyg gap [Moles/Vol]9 mmol/LNormal6 - 16 mEq/LRemisol ChemCalcium [Mass/Vol]9.0 mg/dL Normal8.9 - 11.1 mg/dLRemisol ChemChloride [Moles/Vol]93 mmol/LFuc509 - 111 mmol/LRemisol ChemCO2 [Moles/Vol]27 mmol/TZesbiz87 - 31 mmol/LRemisol Chem Creatinine [Mass/Vol]0.8 mg/dLNormal0.5 - 1.3 mg/dLRemisol BhrvxURO57 mL/min/1.73 n3Hojbcg>=59mL/min/1.73 r2Gpqvmff ChemGlucose [Mass/Vol]110 mg/dL Tcrymj24 - 199 mg/dLRemisol ChemPotassium [Moles/Vol]4.1 mmol/LNormal3.5 - 5.3 mmol/LRemisol ChemSodium [Moles/Vol]125 mmol/XSir758 - 145 mmol/LRemisol Chem Urea nitrogen [Mass/Vol]12 mg/dLNormal5 - 21 mg/dLRemisol ChemUrea nitrogen/Creatinine [Mass ratio]15 mg/zrYgwmte98 - 20Remisol ChemeGFRon 99-47-7539cOXY53 mL/min/1.73 f9Puzdep>=59Community Healther [facility] CenterComment on above:Performed By: #### [id number] #### [facility] [address] [place], [place] [address]NjwhojdjljMarshfield Medical Center [facility] [place] 13-88-2088ZfwrkudfymLifecare Hospital of [facility] Case Information Case Priority: None Programs: -- Referral Source: Accounts Payable Lead Referral Reason: Care coordination Case Type: Transition [...] changes as of 01-12, he'll be with [facility] Medicare. Patient has medication refill request, proposed [...] Type: Patient Contact Name: DARIEL ZABALA Notes: HILLARY#2- see note. Created By: Alec Rodrigez Date: December 17, 2024 Method: Phone call Type: Outbound Duration (min): 16 Outcome: Case discussion Contact Type: Patient Contact Name: DARIEL ZABALA Notes: TCM#1- See tcm note. Created By: Alec Rodrigez RNParma Community General HospitalBMPon 12-31-2024 Anion gap [Moles/Vol]10 mmol/LNormal6-16[facility] HospitalComment on above:Performed By: #### [id number] #### [facility] [address] [place], [place] [address]Qiopfmu [Mass/Vol]9.3 mg/dLNormal8.9-11.1FMadison HealthComment on above:Performed By: #### [id number] #### [facility] [address] [place], [place] [address]Llusdeeg [Moles/Vol]95 mmol/HNxx047-124UkzhfjSheltering Arms HospitalComment on above:Performed By: #### [id number] #### [facility] [address] [place], [place] [address]HB8 [Moles/Vol]27 mmol/IGlmqvr69-20LqatmvSheltering Arms Hospital Comment on above:Performed By: #### [id number] #### [facility] [address] [place], [place] [address]Fztlfrotjh [Mass/Vol]0.8 mg/dLNormal0.5-1.3FMadison HealthComment on above:Performed By: #### [id number] #### [facility] [address] [place], [place] [address]Vdbymtd [Mass/Vol]90 mg/vNJwfcvk94-900MuvxlxSheltering Arms HospitalComment on above:Performed By: #### [id number] #### [facility] [address] [place], [place] [address]Tkbbtzvui [Moles/Vol]4.3 mmol/LNormal3.5-5.3FMadison HealthComment on above:Performed By: #### [id number] #### [facility] [address] [place], [place] [address]Fyzvrp [Moles/Vol]128 mmol/KHag624-988VajpyeSheltering Arms HospitalComment on above:Performed By: #### [id number] #### [facility] [address] [place], [place] [address]Oaac nitrogen [Mass/Vol]13 mg/dLNormal5-21[facility] HospitalComment on above:Performed By: #### [id number] #### [facility] [address] [place], [place] [address]Ormc nitrogen/Creatinine [Mass ratio]16 No MztagUrqhwg74-23 [facility] HospitalComment on above:Performed By: #### [id number] #### [facility] [address] [place], [place] [address]MESAKPYNINrjwpsn By: SYSTEM SYSTEM on 76-65-1370Unaqu gap [Moles/Vol]10 mmol/LNormal6 - 16 mEq/LRemisol ChemCalcium [Mass/Vol]9.3 mg/dL Normal8.9 - 11.1 mg/dLRemisol ChemChloride [Moles/Vol]95 mmol/BBqi935 - 111 mmol/LRemisol ChemCO2 [Moles/Vol]27 mmol/WJpgcxj84 - 31 mmol/LRemisol Chem Creatinine [Mass/Vol]0.8 mg/dLNormal0.5 - 1.3 mg/dLRemisol NykgnZLV57 mL/min/1.73 z7Mvdktd>=59mL/min/1.73 f7Kvlfmxv ChemGlucose [Mass/Vol]90 mg/dL Iiqqai26 - 199 mg/dLRemisol ChemPotassium [Moles/Vol]4.3 mmol/LNormal3.5 - 5.3 mmol/LRemisol ChemSodium [Moles/Vol]128 mmol/SBxy278 - 145 mmol/LRemisol Chem Urea nitrogen [Mass/Vol]13 mg/dLNormal5 - 21 mg/dLRemisol ChemUrea nitrogen/Creatinine [Mass ratio]16 mg/jiQzvhoy75 - 20Remisol ChemeGFRon 04-64-0111lFRI00 mL/min/1.73 z9Jrfpki>=59[facility] HospitalComment on above:Performed By: #### [id number] #### [facility] [address] [place], [place] [address]Ytijtn Medicine Office/Clinic Noteon 78-56-2589Nobyfd Medicine Office/Clinic NoteFaleonard morse hospital Medicine Office/Clinic Note Chief Complaint 1wk follow [...] level of consciousness appropriate for age, CN II- XII intact, motor strength equal & normal bilaterally, speech normal Abdomen: Soft, Non-tender, Non-distended, + Bowel sounds Assessment/Plan 1. Longstanding persistent atrial fibrillation (I48.11: Longstanding persistent atrial fibrillation) Continue atenolol for rate control and manage anticoagulation with warfarin. Reassess warfarin dosebased on INR results and adjust as required. [...] no further interventions would be necessary unless levelsremain abnormal. We decided conjointly to retest labs in one week to keep track of any significant changes. We (more content not included)...Corey HospitalComment on above:Result Comment: Electronically Signed By: Adam COHN, Edwin Lopez.claudio\Date and Time Signed: 12/24/24 13:31 [facility] 88-63-9027StrmyusqueCritical Access Hospital Health Case Information Case Priority: None Programs: -- Referral Source: Accounts Payable Lead Referral Reason: Care coordination Case Type: Transition [...] denies any lightheadedness or dizziness. Denies any wea kness/ fatigue. No change in sleep pattern noted. [...] See tcm note. Created By: Alec Rodrigez RNParma Community General HospitalBMPon 12-18-2024 Anion gap [Moles/Vol]10 mmol/LNormal04-29[facility] HospitalComment on above:Performed By: #### [id number] #### [facility] [address] [place], [place] [address]Wdaoxst [Mass/Vol]9.1 mg/dLNormal8.9-11.1[facility] Medical CenterComment on above:Performed By: #### [id number] #### [facility] [address] [place], [place] [address]Bmdsnrvf [Moles/Vol]98 mmol/RAsd933-539ZpqjjeSheltering Arms HospitalComment on above:Performed By: #### [id number] #### [facility] [address] [place], [place] [address]NI8 [Moles/Vol]27 mmol/ZOgldan65-53IcahynSheltering Arms Hospital Comment on above:Performed By: #### [id number] #### [facility] [address] [place], [place] [address]Tqlcrfttrk [Mass/Vol]0.9 mg/dLNormal0.5-1.3FMadison HealthComment on above:Performed By: #### [id number] #### [facility] [address] [place], [place] [address]Yqouwxi [Mass/Vol]113 mg/qNCwhcxo93-416WchuojSheltering Arms HospitalComment on above:Performed By: #### [id number] #### [facility] [address] [place], [place] [address]Kewylmvfr [Moles/Vol]3.9 mmol/LNormal3.5-5.3FMadison HealthComment on above:Performed By: #### [id number] #### [facility] [address] [place], [place] [address]Alsbmg [Moles/Vol]131 mmol/YEes513-455FrzdmhSheltering Arms HospitalComment on above:Performed By: #### [id number] #### [facility] [address] [place], [place] [address]Vsel nitrogen [Mass/Vol]10 mg/dLNormal5-21S[facility] Arms HospitalComment on above:Performed By: #### [id number] #### [facility] [address] [place], [place] [address]Wxlu nitrogen/Creatinine [Mass ratio]11 No QhhycGbloaf41-20 [facility] Arms HospitalComment on above:Performed By: #### [id number] #### [facility] [address] [place], [place] [address]pYNAzt 18-12-5809oCPR17 mL/min/1.73 t4Eqmuin>=59[facility] Medical CenterComment on above:Performed By: #### [id number] #### [facility] [address] [place], [place] [address]E[facility]at Medicine Office/Clinic Noteon 02-63-2185Womrtu Medicine Office/Clinic NoteFaleonard morse hospital Medicine Office/Clinic Note Chief Complaint ER follow up Confusion and persistent fatigue post-discharge with a concern for recurrent hyponatremia HPI Staff Pt presents today for ER follow up. Hospital: [facility] Visit date:12/14/24 Symptoms the patient presented with: [...] been well-controlled with a recent A1c of 5.4%.The longstanding persistent atrial fibrillation is noted to [...] level of consciousness appropriate for age, CN II- XII intact, motor strength equal & normal bilaterally, speech normal, altered mental status noted Abdomen: Soft, Non-tender, Non-distended, + Bowel sounds Assessment/Plan 1. Hospital discharge follow-up (Z09: Encounter for follow-up examination after completed treatmentfor conditions other than malignant neoplasm) Reviewed D/C summary and TCM notes. Pt needs to follow up with Nephrology. Ordered: Basic Metabolic Panel [facility] External Ambulatory Referral 2. 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 Ordered: Basic Metabolic Panel [facility] External Ambulatory Referral 3. Longstanding persistent atrial fibrillation (I48.11: Longstanding persistent atrial fibrillation) Maintain current management regime, evaluate rhythm control, and anticoagulation status during follow-up visits. Ordered: Basic Metabolic Panel [facility] External Ambulatory Referral 4. Hyponatremia (E87.1: Hypo-osmolality and hyponatremia) Continue monitoring sodium levels closely, with recommended nephrology review for stabilization strategy. No significant lifestyle factors contributing to sodium imbalance noted. Ordered: Basic Metabolic Panel [facility] External Ambulatory Referral 5. Hypothyroid (E03.9: Hypothyroidism, unspecified) Monitor thyroid levels to ensure therapeutic levels are maintained, adjust medications if indicatedby lab abnormalities. Ordered: Basic Metabolic Panel [facility] External Ambulatory Referral 6. Nonsmoker (Z78.9: Other specified health status) Please continue to not smoke. Ordered: Basic Metabolic Panel Orders: fluticasone nasal, See Instructions, 48 mL, Refill(s) 1, USE 1 SPRAY IN EACH NOSTRIL TWICE A DAY, [id number], 178, cm, 08/28/24 14:50:00 EDT, Height/Length Dosing, 82.2, kg, 08/28/24 14:50:00 EDT, Weight Dosing sodium chloride, See Instructions, 1 gram orally daily, # 90 tab(s), Refills(s) 0, Pharmacy: [facility], 178.6, cm, 12/17/24 15:05:00 EST, Height/Length Dosing, 78.5, kg, 12/17/24 15: (more content not included)... Corey HospitalComment on above:Result Comment: Electronically Signed By: Adam COHN, Edwin Cole\.br\Date and Time Signed: 12/17/24 15:29 EST Population Healthon 12-25-7443SwarlxyvirLifecare Hospital of [facility] Case Information Case Priority: None Programs: -- Referral Source: Accounts Payable Lead Referral Reason: Care coordination Case Type: Transition [...] Care Plan Progress Note Admit Date: 12/14/24 [facility] Date of Discharge: 12/15/24 Follow-up appointment scheduled? [...] of: hyponatremia, AMS, DM, PAF, hypothyroid. CN attemptedto reconcile medications, patient states he gets mixed [...] or urinary issues.. Patient is eating and drinkinggood. Reports his BS have been 'good.' Notes he has been doing a lot more laying around than normald/t the cold wea (more content not included)... NormalSheltering Arms HospitalMain OR Intraoperative Recordon 52-48-0390[place]aw OR Intraoperative RecordMain OR Intraoperative Record IntraOp Document Type FT Summary Primary Physician: Axel Hernández DO Finalized Date/Time: 11/20/24 07:56:52 Pt. Name: DARIEL ZABALA/Sex: 1940 Male Med Rec #: [id number] Physician: Axel Hernández DO Financial #: [id number] Pt. Type: A Room/Bed: Admit/Disch: 11/19/24 09:28:12 [...] 2 Entry 3 Case Attendee Daniel RENDON, Ethan Hernández DO, Axel Faria PERFORMANCE ARCHITECT, Chau Jimenez Role Performed CRADLE SLIDE MAKER Surgeon - Primary PERFORMANCE ARCHITECT/SA Time In 11/19/24 12:10:00 11/19/24 12:23:00 11/19/24 12:10:00 Time Out 11/19/24 12:37:00 11/19/24 12:35:00 11/19/24 12:37:00 Procedure CARPAL TUNNEL CARPAL TUNNEL CARPAL TUNNEL RELEASE(Left) RELEASE(Left) RELEASE(Left) Comments DR LOU SUPERVISING Last Modified By: Ambrocio Borges Terry T Sweene, Terry T 11/19/24 12:45:19 11/19/24 12:53:03 11/19/24 12:45:19 Entry 4 Entry 5 Case Attendee Ambrocio Borges Laura C Role Performed Park Landscape Architect - Primary Scrub - Primary Time [...] CRNA, Given Participants Axel Hernández DO, Giana PERFORMANCE ARCHITECT, Chau W, Lauren Grant, Ambrocio Borges Time [...] and tissue Entry 1 Skin Integrity Intact, [place], Warm, & Skin Abnormality No Dry Outcomes [...] Extended on Hand Ta (more content not included)...Corey HospitalOperative Reporton 11-20-2024 Operative ReportOperative Report SURGERY DATE: 11/19/2024 PREOPERATIVE DIAGNOSIS: Left [...] area of approximately 15 mm. Palmar fascia wassplit. Self-retaining retractor was applied. Transverse carpal ligament was released centrally and further released proximally and distally with blunt dissection scissors. Complete release was achieved. There was no hourglass deformity, space-occupying mass or lesion. There was a moderate amount offlattening of the median nerve. After complete release [...] PATIENT CONDITION: Satisfactory Deanna Weller Dictated: 11/19/2024 [id number] Transcribed: 11/19/2024 cc:Edwin Garcia M.D.Corey HospitalComment on above:Result Comment: Electronically Signed By: Axel Hernández DO\.br\Date and Time Signed: 11/20/24 16:36 ESTBMPon 96-72-3572Rodyn gap [Moles/Vol]10 mmol/LNormal 6-16S[facility]tering Arms HospitalComment on above:Order Comment: To be drawn day of surgery.Performed By: #### [id number] #### [facility] [address] [place], [place] [address]Vanotjw [Mass/Vol]9.2 mg/dLNormal8.9-11.1FMadison HealthComment on above:Order Comment: To be drawn day of surgery.Performed By: #### [id number] #### [facility] [address] [place], [place] [address]Hbaojmbi [Moles/Vol]98 mmol/MJcc349-795GbpynpSheltering Arms HospitalComment on above:Order Comment: To be drawn day of surgery.Performed By: #### [id number] #### [facility] [address] [place], [place] [address]NY3 [Moles/Vol]26 mmol/ADyrnmq41-70UvbiwaSheltering Arms Hospital Comment on above:Order Comment: To be drawn day of surgery.Performed By: #### [id number] #### [facility] [address] [place], [place] [address]Zvxxfdznkg [Mass/Vol]0.9 mg/dLNormal0.5-1.3FMadison HealthComment on above:Order Comment: To be drawn day of surgery.Performed By: #### [id number] #### [facility] [address] [place], [place] [address]Ixxulyj [Mass/Vol]77 mg/bEOxgtee39-593SgubkySheltering Arms HospitalComment on above:Order Comment: To be drawn day of surgery.Performed By: #### [id number] #### [facility] [address] [place], [place] [address]Fmbhrjhph [Moles/Vol]4.2 mmol/LNormal3.5-5.3FMadison HealthComment on above:Order Comment: To be drawn day of surgery. Performed By: #### [id number] #### [facility] [address] [place], [place] [address]Ezowqj [Moles/Vol]130 mmol/PZjr070-219YikbjzSheltering Arms HospitalComment on above:Order Comment: To be drawn day of surgery.Performed By: #### [id number] #### [facility] [address] [place], [place] [address]Hlca nitrogen [Mass/Vol]8 mg/dLNormal5-21S[facility] Arms HospitalComment on above:Order Comment: To be drawn day of surgery.Performed By: #### [id number] #### [facility] [address] [place], [place] [address]Eixe nitrogen/Creatinine [Mass ratio]9 No LzeinMok23-82JnfhltSheltering Arms HospitalComment on above:Order Comment: To be drawn day of surgery. Performed By: #### [id number] #### [facility] [address] [place], [place] [address]QTKJMEAGTEaebkaz By: Lab Brian on 04-78-3952Dfngarl [Mass/Vol]78 mg/eUEmaxxu98 - 99 mg/dLLAWTON [facility]DI[facility] POC SubsectionComment on above:Result Comment: Cleaned MeterPO UsernameWOLFE, PAIGEInvalid Interpretation CodeLA[facility]ON INDI[facility] POC SubsectionSodium [Moles/Vol][id number] mmol/LInvalid Interpretation Code [facility] POC SubsectionSodium [Moles/Vol]169026363 mmol/LInvalid Interpretation Code [facility] POC SubsectionCHEMISTRYOrdered By: SYSTEM SYSTEM on 89-10-1326Fjumf gap [Moles/Vol]10 mmol/LNormal6 - 16 mEq/LRemisol ChemCalcium [Mass/Vol]9.2 mg/dL Normal8.9 - 11.1 mg/dLRemisol ChemChloride [Moles/Vol]98 mmol/QMrj894 - 111 mmol/LRemisol ChemCO2 [Moles/Vol]26 mmol/TFvduig66 - 31 mmol/LRemisol Chem Creatinine [Mass/Vol]0.9 mg/dLNormal0.5 - 1.3 mg/dLRemisol EixwaHYU69 mL/min/1.73 y2Mzearo>=59mL/min/1.73 l0Bsyskto ChemGlucose [Mass/Vol]77 mg/dL Wbbaod83 - 199 mg/dLRemisol ChemPotassium [Moles/Vol]4.2 mmol/LNormal3.5 - 5.3 mmol/LRemisol ChemSodium [Moles/Vol]130 mmol/LRxs616 - 145 mmol/LRemisol Chem Urea nitrogen [Mass/Vol]8 mg/dLNormal5 - 21 mg/dLRemisol ChemUrea nitrogen/Creatinine [Mass ratio]9 mg/mgLow10 - 20Remisol ChemCOAGULATIONOrdered By: Christine Stevens on 51-73-2368eOKU Coag (PPP) [Time]38.5 sHigh25.1 - 36.5 second(s)[facility] Auto CoagComment on above:Interpretive Data: Parameter 15 days - 4 weeks 1 [...] the same coagulation reagent and instrumentation as [facility]. Currently there are no coagulation studies available worldwide for children to 14 days, andno normal ranges. Heparin therapeutic range (represented by Anti-Factor Xa activity of 0.2 - 0.4 U/mL) corresponds to PTT of 56.6 - 109.0 sec.INR Coag (PPP) [Relative time]1.11 {INR}Invalid Interpretation CodeLAWTON INDIAN [facility] [place] Auto CoagComment on above:Interpretive Data: INR results are specifically intended to assess patients stabilized on long-term Anticoagulation therapy suggested INR s Less Intensive Anticoagulation 2.0 3.0 Conventional Range 3.0 4.5PT Coag (PPP) [Time]12.5 sNormal9.4 - 12.5 second(s) [facility] Auto CoagComment on above:Interpretive Data: 15 days - 4 weeks 1 - [...] the same coagulation reagent and instrumentation as [facility]. Currently there are no coagulation studies available worldwide for children to 14 days, andno normal ranges.Capillary Glucose POCon 49-38-7515Kgmxuqb [Mass/Vol]78 mg/dLNormal 55-99[facility] CenterComment on above:Result Comment: Cleaned Meter Performed By: #### [id number] #### [facility] [address] [place], [place] [address]Hswuiozwi Instructionson 40-80-4470Sfknzzkdt Instructions Discharge Instructions DARIEL ZABALA :1940 Visit [...] AM EDT With: Where: [facility] Medicine [address] [address]- New Follow Up Appointments after Discharge Follow Up with GORDO Weller When: 11/28/2024 01:00 PM EST Comments: Keep scheduled appointment. Call for any problems. Where: [address] [place] [address]- [employer] (1) Medications What How Much When [...] See instructions TAKE 1 TABLET DAILY ON ANEMPTY STOMACH Unchanged omeprazole (omeprazole 40 mg Cap-DR) [...] Allergies No Known Medication Allergies Education Materials [place] [place] [facility] CARPAL TUNNEL RELEASE INSTRUCTIONS [...] be alarmed if the (more content not included)...Corey HospitalComment on above:Result Comment: Electronically Signed By: Dirk KHAN, Maya Ott\.br\Date and Time Signed: 11/19/24 13:12 [facility] CAPILLARY GLUCOSE POCon 19-63-8042Rafqsxm [Mass/Vol]78 mg/dL55 - 99 mg/dLNOHI HealthcareComment on above:Cleaned MeterOriginal Ordering Provider: DO Axel [facility] HealthcareMain OR PACU I Recordon 77-99-6114Jybb OR PACU I RecordMain OR PACU I Record PACU Phase I Document Type FT Summary Primary Physician: Axel Hernández DO Finalized Date/Time: 11/19/24 13:24:52 Pt. Name: DARIEL ZABALA/Sex: 1940 Male Med Rec #: [id number] Physician: Axel Hernández DO Financial #: [id number] Pt. Type: A Room/Bed: Admit/Disch: 11/19/24 09:28:12 [...] individualized perioperative plan of care The patient's rightto privacy is maintained The patient's value system, [...] with or improved from baseline levels established preoperativelyThe patient's cardiovascular status is consistent with or improved from baseline levels established preoperatively The patient's cardiovascular status is consistent with or improved from baseline levels established preoperatively The patient demonstrates and/or reports adequate pain control throughout the perioperative period The patient received appropriate medication(s), safely administered during the perioperativeperiod Acuity Level PACU I FT Entry 1 Start Time 11/19/24 12:40:00 Stop Time 11/19/24 13:10:00 Acuity Level Acuity Level I Last Modified By: Vicki Sethi RN 11/19/24 13:24:44 Finalized By: Vicki Sethi RN Document Signatures Signed By: Vicki Sethi RN 11/19/24 13:24 Vicki Sethi RN 11/19/24 13:24Corey HospitalMain OR PACU II Recordon [id number] OR PACU II Record Main OR PACU II Record PACU Phase II Document Type FT Summary Primary Physician: Axel Hernández DO Finalized Date/Time: 11/19/24 14:27:02 Pt. Name: DARIEL ZABALA/Sex: 1940 Male Med Rec #: [id number] Physician: Axel Hernández DO Financial #: [id number] Pt. Type: A Room/Bed: Admit/Disch: 11/19/24 09:28:12 [...] and monitors body temperature Evaluates postoperative respiratory statusEvaluates postoperative cardiac status Evaluates postoperative neurological status [...] individualized perioperative plan of care The patient's rightto privacy is maintained The patient's value system, [...] with or improved from baseline levels established preoperativelyThe patient's cardiovascular status is consistent with or improved from baseline levels established preoperatively The patient's neurological status is consistent with or improved from baseline levels established preoperatively The patient demonstrates and/or reports adequate pain control throughout the perioperative period The patient received appropriate medication(s), safely administered during the perioperativeperiod Finalized By: Maya Cavazos RN Document Signatures Signed By: Maya Cavazos RN 11/19/24 14:27NoUniversity Hospitals Ahuja Medical CenterMain OR Preoperative Recordon [id number] OR Preoperative RecordMain OR Preoperative Record PreOp Document Type FT Summary Primary Physician: Axel Hernández DO Finalized Date/Time: 11/19/24 12:53:23 Pt. Name: DARIEL ZABALA/Sex: 1940 Male Med Rec #: [id number] Physician: Axel Hernández DO Financial #: [id number] Pt. Type: A Room/Bed: Admit/Disch: 11/19/24 09:28:12 [...] Ambrocio Borges 11/19/24 12:53 Ambrocio Borges 11/19/24 12:53NormalFisher [facility] CenterPT & PTTon 27-11-0671lFSP Coag (PPP) [Time]38.5 second(s)High 25.1-36.5[facility] Medical CenterComment on above:Result Comment: Parameter 15 days - 4 weeks [...] the same coagulation reagent and instrumentation as [facility]. Currently there are no coagulation studies available worldwide for children to 14 days, andno normal ranges. Heparin therapeutic range (represented by Anti-Factor Xa activity of 0.2 - 0.4 U/mL) corresponds to PTT of 56.6 - 109.0 sec.Performed By: #### [id number] #### [facility] [address] [place], [place] [address]JMB Coag (PPP) [Relative time]1.11 {INR}Invalid Interpretation CodeSheltering Arms HospitalComment on above:Result Comment: INR results are specifically intended to assess patients stabilized on long-term Anticoagulation therapy suggested INR???s ???Less Intensive Anticoagulation??? 2.0 ??? 3.0 Conventional Range 3.0 ??? 4.5Performed By: #### [id number] #### [facility] [address] [place], [place] [address]MF Coag (PPP) [Time]12.5 second(s)Normal9.4-12.5FMadison HealthComment on above:Result Comment: 15 days - 4 weeks 1 [...] the same coagulation reagent and instrumentation as [facility]. Currently there are no coagulation studies available worldwide for children to 14 days, andno normal ranges.Performed By: #### [id number] #### [facility] [address] [place], [place] [address]oXJMxy 92-85-2545fVQP55 mL/min/1.73 q4Kdwixd>=59Sheltering Arms HospitalComment on above:Performed By: #### [id number] ####[facility] [address] [place], [place] [address]JLBuq 23-13-8033Ughvr gap [Moles/Vol]7 mmol/LNormal6-16Sheltering Arms HospitalComment on above: Performed By: #### [id number] #### [facility] [address] [place], [place] [address]Igvoirc [Mass/Vol]8.8 mg/dLLow8.9-11.1FMadison HealthComment on above:Performed By: #### [id number] #### [facility] [address] [place], [place] [address]Szhmjciq [Moles/Vol]97 mmol/WYxs580-661ToalfaSheltering Arms HospitalComment on above:Performed By: #### [id number] #### [facility] [address] [place], [place] [address]KR6 [Moles/Vol]28 mmol/GUijoia59-13DxshuySheltering Arms Hospital Comment on above:Performed By: #### [id number] #### [facility] [address] [place], [place] [address]Xfvkmdktju [Mass/Vol]0.9 mg/dLNormal0.5-1.3FMadison HealthComment on above:Performed By: #### [id number] #### [facility] [address] [place], [place] [address]Gfvqktb [Mass/Vol]106 mg/vCCgxken44-972WkqucoSheltering Arms HospitalComment on above:Performed By: #### [id number] #### [facility] [address] [place], [place] [address]Aeurtdkya [Moles/Vol]4.4 mmol/LNormal3.5-5.3FMadison HealthComment on above:Performed By: #### [id number] #### [facility] [address] [place], [place] [address]Khucgx [Moles/Vol]128 mmol/QNwu745-323JnwjapSheltering Arms HospitalComment on above:Performed By: #### [id number] #### [facility] [address] [place], [place] [address]Yplq nitrogen [Mass/Vol]12 mg/dLNormal5-21S[facility]tering Arms HospitalComment on above:Performed By: #### [id number] #### [facility] [address] [place], [place] [address]Awlk nitrogen/Creatinine [Mass ratio]13 No JmxaxDcoicx26-51 [facility] Arms HospitalComment on above:Performed By: #### [id number] #### [facility] [address] [place], [place] [address]BNJERENDWVzbptlf By: SYSTEM SYSTEM on 17-70-1022Jbcjn gap [Moles/Vol]7 mmol/LNormal6 - 16 mEq/LRemisol ChemCalcium [Mass/Vol]8.8 mg/dLLow 8.9 - 11.1 mg/dLRemisol ChemChloride [Moles/Vol]97 mmol/NShz399 - 111 mmol/L Remisol ChemCO2 [Moles/Vol]28 mmol/CKgbmxs51 - 31 mmol/LRemisol ChemCreatinine [Mass/Vol]0.9 mg/dLNormal0.5 - 1.3 mg/dLRemisol MtgzvTJN92 mL/min/1.73 m5Ssuztt >=59mL/min/1.73 d8Xvvkkyn ChemGlucose [Mass/Vol]106 mg/eAEpoygu45 - 199 mg/dL Remisol ChemPotassium [Moles/Vol]4.4 mmol/LNormal3.5 - 5.3 mmol/LRemisol Chem Sodium [Moles/Vol]128 mmol/NBmy994 - 145 mmol/LRemisol ChemTSH Qn2.17 m[IU]/L Normal0.34 - 5.60 mcIU/mLRemisol ChemUrea nitrogen [Mass/Vol]12 mg/dLNormal5 - 21 mg/dLRemisol ChemUrea nitrogen/Creatinine [Mass ratio]13 mg/cwKqhfis11 - 20 Remisol ChemCHEMISTRYOrdered By: Kirstin Robert on 73-88-2179KqB4n (Bld) [Mass fraction]5.4 %Normal<=5.9%[facility] EbytAexxEJYwuQ9saf 70-91-0947AwM7n (Bld) [Mass fraction]5.4 %Normal<=5.9Sheltering Arms HospitalComment on above:Performed By: #### [id number] #### [facility] [address] [place], [place] [address]Ybypatboh Patient Summaryon 72-62-9665Fijuoszpl Patient Summary Inpatient Patient Summary [facility] [address] [place], [place] [address] [facility] Clinical Discharge Instructions PERSON INFORMATION Name: DARIEL ZABALA [facility]#:[id number] PHYSICIANS Admitting Physician: Axel Hernández DO Attending Physician: Axel Hernández DO PCP: Edwin Garcia MD Discharge Diagnosis: Carpal tunnel syndrome on left Comment: PATIENT EDUCATION INFORMATION Instructions: Edgar Gonzalez Carpal Tunnel Release Instructions (Custom) (CUSTOM) Medication Leaflets: Follow up: With: Address: When: Axel Hernández [address] [place] [address] [employer] (1) Comments: Keep scheduled appointment Type Location Start [facility] Surgical Services 11/19/2024 2:15 PM 11/19/2024 2:45 PM Confirmed Cardiology Follow Up (FT) FT.Cardiology Clinic 12/12/2024 10:15 AM 12/12/2024 10:30 AM Confirmed Medicare Wellness Subsequent [facility] [place] 05/02/2025 8:00 AM 05/02/2025 9:00 AM Confirmed [...] Mouth every day as needed for erectile dysfunction.1 hour before sexual activity. Refills: 0. sodium chloride (Sodium Chloride 1 g oral tablet) 1 gram orally daily. Refills: 0. tamsulosin (tamsulosin 0.4 mg Cap) 1 Capsules By Mouth every day. Refills: 1. warfarin (Jantoven 5 mg oral tablet) 1 Tablets By Mouth every day. Comment:Corey HospitalOutpatient Surgery Discharge Instructionon 20-40-7814Fgukwzlpqu Surgery Discharge InstructionOutpatient Surgery Discharge Instruction [place] [address] Patient Discharge Instructions PERSON INFORMATION Name: DARIEL [...] drainage and/or bleeding, Activity as tolerated, Do notlift more than 5 lbs Discharge Restrictions: No [...] up: With: Address: When: Axel Hernández [address] [place], [place] [id number] [employer] (1) Comments: Keep scheduled appointment Type Location Start [facility] Surgery [facility] Surgical Services 11/19/2024 2:15 PM 11/19/2024 2:45 PM Confirmed [facility] 12/12/2024 10:15 AM 12/12/2024 10:30 AM Confirmed Medicare Wellness Subsequent [facility] Jackie 05/02/2025 8:00 AM 05/02/2025 9:00 [...] to serve you. Thank you for choosing [facility] HERE ARE THE MEDICATION CHANGES THAT [...] Mouth every day as needed for erectile dysfunction.1 hour before sexual activity. Refills: 0. sodium chloride (Sodium Chloride 1 g oral tablet) 1 gram orally daily. Refills: 0. tamsulosin (tamsulosin 0.4 mg Cap) 1 Capsules By Mouth every day. Refills: 1. warfarin (Jantoven 5 mg oral tablet) 1 Tablets By Mouth every day. PATIENT EDUCATION INFORMATION Instructions: [place] [place] [facility] CARPAL TUNNEL RELEASE INSTRUCTIONS Post-Operative Week One You will be in a soft dressing from mid palm to forearm. Please remove dressing two days after surgery. At that point, clean daily with peroxide or betadine and place daily fresh bandaids. Cover for showers with waterproof bandaid, op site occlusive dressing (more content not included)...NormalKettering Health [facility] With T4fr Reflexon 91-43-6727ZHL Qn2.17 m[IU]/LNormal0.34-5.60Sheltering Arms HospitalComment on above:Performed By: #### [id number] #### [facility] [address] [place], [place] [address]eZTPvk 46-60-7192gWRS27 mL/min/1.73 f9Zxckty>=59Sheltering Arms HospitalComment on above:Performed By: #### [id number] #### [facility] [address] [place], [place] [address]Kzxafvwzhg Visit Summaryon 57-94-6835Twhkdslmts Visit Summary Ambulatory Visit Summary CLIFFORDDARIEL Solitario [...] Appointments Tuesday 9:20 AM EST With: Where: [address] [address]- Tuesday 2:15 PM EST With: Where: [facility] Surgical Services Tuesday 10:15 AM EST With: Dixon Dubose PA-C Where: [facility] 2024 8:00 AM EDT With: Where: [address] [address]- Medications What How Much When Instructions Unchanged [...] See instructions TAKE 1 TABLET DAILY ON ANEMPTY STOMACH Unchanged omeprazole (omeprazole 40 mg Cap-DR) [...] you for choosing us for your care. [facility] Office/Clinic Noteon 33-56-7477Jkkmmf Medicine Office/Clinic NoteFaleonard morse hospital Medicine Office/Clinic Note Chief Complaint Pre-surgical assessment [...] level of consciousness appropriate for age, CN II- XII intact, motor strength equal & normal bilaterally, speech normal Abdomen: Soft, Non-tender, Non-distended, + Bowel sounds Assessment/Plan 1. ASCVD (arteriosclerotic cardiovascular disease) (I25.10: Atherosclerotic heart disease of nativecoronary artery without angina pectoris) Denies CP. Continue [...] Hg (Most Recent) 3074 (more content not included)...Normal [facility] HospitalComment on above:Result Comment: Electronically Signed By: Adam COHN, Edwin Cole\.br\Date and Time Signed: 11/01/24 09:42 ESTBMPon 91-89-9312Mnhwc gap [Moles/Vol]11 mmol/LNormal6-16[facility] Comment on above:Performed By: #### [id number] #### [facility] [address] [place], [place] [address]Brtbqgo [Mass/Vol]9.0 mg/dLNormal8.9-11.1[facility] CenterComment on above:Performed By: #### [id number] #### [facility] [address] [place], [place] [address]Zfrgjtzq [Moles/Vol]96 mmol/ZHbd805-017TvtwpbSheltering Arms HospitalComment on above:Performed By: #### [id number] #### [facility] [address] [place], [place] [address]YR9 [Moles/Vol]27 mmol/JZzgzsn72-88GtqkdeSheltering Arms Hospital Comment on above:Performed By: #### [id number] #### [facility] [address] [place], [place] [address]Eaoquwjcbu [Mass/Vol]0.9 mg/dLNormal0.5-1.3FMadison HealthComment on above:Performed By: #### [id number] #### [facility] [address] [place], [place] [address]Xmioxkh [Mass/Vol]87 mg/wPTrdiqt37-228NflljoSheltering Arms HospitalComment on above:Performed By: #### [id number] #### [facility] [address] [place], [place] [address]Tonslgbfd [Moles/Vol]4.7 mmol/LNormal3.5-5.3FMadison HealthComment on above:Performed By: #### [id number] #### [facility] [address] [place], [place] [address]Ujcxct [Moles/Vol]129 mmol/SBqj992-610OgomlcSheltering Arms HospitalComment on above:Performed By: #### [id number] #### [facility] [address] [place], [place] [address]Wfvk nitrogen [Mass/Vol]15 mg/dLNormal5-21[facility] HospitalComment on above:Performed By: #### [id number] #### [facility] [address] [place], [place] [address]Onii nitrogen/Creatinine [Mass ratio]17 No RxskrWrfwpx38-55 [facility] HospitalComment on above:Performed By: #### [id number] #### [facility] [address] [place], [place] [address]JNG w/ Auto Diffon 57-03-5383Gslginxgk/100 WBC (Bld)0.9 %Normal 0.0-2.0[facility] HospitalComment on above:Performed By: #### [id number] #### [facility] [address] [place] [address]Qnyxzbfyt/Leukocytes Auto (Bld) [Pure # fraction]0.0 E9/LNormal 0.0-0.2FMadison HealthComment on above:Performed By: #### [id number] #### [facility] [address] [place] [address]Nxkjlltbvby (Bld) [#/Vol]0.2 E9/LNormal0.0-0.5FMadison HealthComment on above:Performed By: #### [id number] #### [facility] [address] [place] [address]Moaywagpbkr/100 WBC (Bld)3.6 %Normal0.0-8.0[facility] HospitalComment on above:Performed By: #### [id number] #### [facility] [address] [place] [address]Nkoynfywxmn distribution width (RBC) [Ratio]13.4 %Normal 10.9-14.2FMadison HealthComment on above:Performed By: #### [id number] #### [facility] [address] [place] [address]Fgeunxpbgg (Bld) [Volume fraction]36.3 %Low37.7-49.0[facility] HospitalComment on above:Performed By: #### [id number] #### [facility] [address] [place] [address]Gbiosyyeld (Bld) [Mass/Vol]12.8 g/dLLow13.5-17.5FMadison HealthComment on above:Performed By: #### [id number] #### [facility] [address] [place] [address]Qvszrrmocuj (Bld) [#/Vol]1.5 E9/LNormal1.0-4.0[facility] HospitalComment on above:Performed By: #### [id number] #### [facility] [address] [place] [address]Cuccjdsafkg/100 WBC (Bld)30.1 %Bbedtb38.0-50.0[facility] HospitalComment on above:Performed By: #### [id number] #### [facility] [address] [place] [address]XDH (RBC) [Entitic mass]31.7 yqKidgdl07.0-34.0[facility] HospitalComment on above:Performed By: #### [id number] #### [facility] [address] [place] [address]XNSE (RBC) [Mass/Vol]35.2 g/tHYqdvfx93.4-36.0[facility] HospitalComment on above:Performed By: #### [id number] #### [facility] [address] [place] [address]UDE (RBC) [Entitic vol]90.1 zCWwleud04.0-100.0[facility] HospitalComment on above:Performed By: #### [id number] #### [facility] [address] [place] [address]Ksgigtskr (Bld) [#/Vol]0.4 E9/LNormal0.2-1.0[facility] HospitalComment on above:Performed By: #### [id number] #### [facility] [address] [place] [address]Ixkcmlutjed (Bld) [#/Vol]2.9 E9/LNormal2.0-7.5FMadison HealthComment on above:Performed By: #### [id number] #### [facility] [address] [place] [address]Tqcehwymvcw/100 WBC (Bld)56.9 %Hfggtp38.0-75.0[facility] HospitalComment on above:Performed By: #### [id number] #### [facility] [address] [place] [address]Lomtufoh462.0 E9/BPfrqzb846.0-500.0[facility] Comment on above:Performed By: #### [id number] #### [facility] [address] [place], [place] [address]Wldjxjgc mean volume (Bld) [Entitic vol]9.1 fLNormal6.4-10.8 [facility] HospitalComment on above:Performed By: #### [id number] #### [facility] [address] [place], [place] [address]XHI (Bld) [#/Vol]4.0 E12/LLow4.3-5.9[facility] Comment on above:Performed By: #### [id number] #### [facility] [address] [place], [place] [address]XEV corrected for nucl RBC Auto (Bld) [#/Vol]5.1 E9/LNormal 4.0-11.0[facility] HospitalComment on above:Performed By: #### [id number] #### [facility] [address] [place], [place] [address]FABDUEKWPWtocpem By: SYSTEM SYSTEM on 50-55-6012Bffio gap [Moles/Vol]11 mmol/LNormal6 - 16 mEq/LRemisol ChemCalcium [Mass/Vol]9.0 mg/dL Normal8.9 - 11.1 mg/dLRemisol ChemChloride [Moles/Vol]96 mmol/UBme974 - 111 mmol/LRemisol ChemCO2 [Moles/Vol]27 mmol/CRyoatp46 - 31 mmol/LRemisol Chem Creatinine [Mass/Vol]0.9 mg/dLNormal0.5 - 1.3 mg/dLRemisol WegwvAEQ89 mL/min/1.73 t5Zsjjtb>=59mL/min/1.73 u2Rrzgobg ChemGlucose [Mass/Vol]87 mg/dL Qlpmfr15 - 199 mg/dLRemisol ChemPotassium [Moles/Vol]4.7 mmol/LNormal3.5 - 5.3 mmol/LRemisol ChemSodium [Moles/Vol]129 mmol/IRtq360 - 145 mmol/LRemisol Chem Urea nitrogen [Mass/Vol]15 mg/dLNormal5 - 21 mg/dLRemisol ChemUrea nitrogen/Creatinine [Mass ratio]17 mg/upHxdxgh24 - 20Remisol ChemHEMATOLOGY Ordered By: SYSTEM SYSTEM on 96-33-4835Bfnwykbjv/100 WBC (Bld)0.9 %Normal0.0 - 2.0 %Remisol HemeBasophils/Leukocytes Auto (Bld) [Pure # fraction]0.0 E9/LNormal 0.0 - 0.2 E9/LRemisol HemeEosinophils (Bld) [#/Vol]0.2 E9/LNormal0.0 - 0.5 E9/L Remisol HemeEosinophils/100 WBC (Bld)3.6 %Normal0.0 - 8.0 %Remisol Heme Erythrocyte distribution width (RBC) [Ratio]13.4 %Qgdgan00.9 - 14.2 %Remisol HemeHematocrit (Bld) [Volume fraction]36.3 %Low37.7 - 49.0 %Remisol Heme Hemoglobin (Bld) [Mass/Vol]12.8 g/dLLow13.5 - 17.5 gm/dLRemisol HemeLymphocytes (Bld) [#/Vol]1.5 E9/LNormal1.0 - 4.0 E9/LRemisol HemeLymphocytes/100 WBC (Bld) 30.1 %Oxmosn90.0 - 50.0 %Remisol HemeMCH (RBC) [Entitic mass]31.7 bvKcdxbr80.0 - 34.0 pgRemisol HemeMCHC (RBC) [Mass/Vol]35.2 g/mFWyiaex82.4 - 36.0 gm/dLRemisol HemeMCV (RBC) [Entitic vol]90.1 iWEuoasx32.0 - 100.0 fLRemisol HemeMonocytes (Bld) [#/Vol]0.4 E9/LNormal0.2 - 1.0 E9/LRemisol HemeMonocytes/100 WBC (Bld)8.5 %Normal4.0 - 14.0 %Remisol HemeNeutrophils (Bld) [#/Vol]2.9 E9/LNormal2.0 - 7.5 E9/LRemisol HemeNeutrophils/100 WBC (Bld)56.9 %Eqsycx96.0 - 75.0 %Remisol Heme Cqgaeqzy147.0 E9/FKumngy729.0 - 500.0 E9/LRemisol HemePlatelet mean volume (Bld) [Entitic vol]9.1 fLNormal6.4 - 10.8 fLRemisol HemeRBC (Bld) [#/Vol]4.0 E12/LLow 4.3 - 5.9 E12/LRemisol HemeWBC corrected for nucl RBC Auto (Bld) [#/Vol]5.1 E9/L Normal4.0 - 11.0 E9/LRemisol HemeeGFRon 52-43-3678xABX48 mL/min/1.73 s7Mxcqfe >=59[facility] HospitalComment on above:Performed By: #### [id number] #### [facility] [address] [place], [place] [address]Lrbsew Medicine Office/Clinic Noteon 53-04-8348Bxahyk Medicine Office/Clinic NoteFaleonard morse hospital Medicine Office/Clinic Note HPI Staff aDriel is an 84 year old male presenting [...] Daily, # 90 tab(s), Refills(s) 0, [facility], cm, 09/10/24 13:01:00 EDT, [...] Family History Diabetes mellitus (more content not included)...[facility] HospitalComment on above:Result Comment: Electronically Signed By: Adam COHN, Edwin Lopez.claudio\Date and Time Signed: 09/10/24 13:19 EDTGeneral Surgery Office/Clinic Noteon 21-93-0160Rsgnwjv Surgery Office/Clinic NoteGeneral Surgery Office/Clinic Note Chief Complaint ref- hernia HPI Staff [employer] Dariel is an 84 y.o. male [...] E&M of New Patient Low 30-44 Min 87330 2. ASCVD (arteriosclerotic cardiovascular disease) (I25.10: Atherosclerotic heart disease of nativecoronary artery without angina pectoris) The patient require surgery he will require cardiac clearance Ordered: E&M of New Patient Low 30-44 Min 90055 3. Longstanding persistent atrial fibrillation (I48.11: Longstanding persistent atrial fibrillation) Should patient require or opt for a robotic repair he will need to hold his anticoagulation for 5 days prior to the procedure Ordered: E&M of New Patient Low 30-44 Min 57198 Follow-up No qualifying data available Problem List/Past [...] Oral, Daily, 1 refills Flonase 0.05 mg/inh [place], 1 spray(s), Nasal, BID gabapentin 300 mg [...] 03/31/2015 Recorded influenza virus vaccine, inactivated 08/02/2014 RecordedNoUniversity Hospitals Ahuja Medical CenterComment on above:Result Comment: Electronically Signed By: Sam COHN, Davie Cole\.br\Date and Time Signed: 08/28/24 15:02 EDTAmbulatory Visit Summaryon 99-83-4329Gbvmxxrjnq Visit SummaryAmbulatory Visit Summary DARIEL ZABALA :1940 Visit Date:08/07/2024 [...] mg Tab) fluticasone nasal (Flonase 0.05 mg/inh [place]) gabapentin (gabapentin 300 mg Cap) glimepiride (glimepiride [...] AM EST With: Edwin Garcia MD Where: [address] [address]- Tuesday 1:00 PM EST With: Dixon Dubose PA-C Where: [facility] 2024 8:00 AM EDT With: Where: [address] [address]- Medications What How Much When Why Instructions [...] Unchanged fluticasone nasal (Flonase 0.05 mg/ inh [place]) 1 Sprays Nasal Inhalation 2 times a [...] you for choosing us for your care. [facility] Medicine Office/Clinic Noteon 87-36-4611Akpfpv Medicine Office/Clinic NoteFramingham [facility] Hospital Medicine Office/Clinic Note HPI Staff Dariel is [...] advised him his appt is 08/13/24 with [place] [facility] at 12:30pm History of Present [...] day(s), # 21 tab(s), Refills(s) 0, Pharmacy: [facility]/pharmacy #[id number], 178, cm, 07/31/24 14:02:00 [...] encounter, evaluating and assessing the patient, documenting thevisit, and ordering appropriate follow-up work was 40 [...] Oral, Daily, 1 refills Flonase 0.05 mg/inh [place], 1 spray(s), Nasal, BID gabapentin 300 mg [...] Oral, q8hr, 1 r (more content not included)...[facility] HospitalComment on above:Result Comment: Electronically Signed By: Adam COHN, Edwin Lopez.claudio\Date and Time Signed: 08/07/24 11:41 [facility] Medicine Office/Clinic Noteon 62-81-8907Esrnqm Medicine Office/Clinic NoteFaleonard morse hospital Medicine Office/Clinic Note HPI Staff Dariel is [...] day(s), # 21 tab(s), Refills(s) 0, Pharmacy: [facility]/pharmacy #[id number], 178, cm, 07/31/24 14:02:00 EDT, Height/Length Dosing, 78.5, kg, 07/31/24 14:02:00 EDT, Weight Dosing tramadol, 50 mg = 1 tab(s), Oral, q4hr, PRN for pain, X 7 day(s), # 21 tab(s), Refills(s) 0, Pharmacy: [facility]/pharmacy #[id number], 178, cm, 07/31/24 14:02:00 [...] Oral, Daily, 1 refills Flonase 0.05 mg/inh [place], 1 spray(s), Nasal, BID gabapentin 300 mg [...] 03/31/2015 Recorded influenza virus vaccine, inactivated 08/02/2014 RecordedCorey HospitalComment on above:Result Comment: Electronically Signed By: Adam COHN, Edwin Cole\.br\Date and Time Signed: 07/31/24 14:23 EDTAmbulatory Visit Summaryon 60-88-7091Wkfkqfaiur Visit SummaryAmbulatory Visit Summary DARIEL ZABALA :1940 Visit Date:07/24/2024 [...] mg Tab) fluticasone nasal (Flonase 0.05 mg/inh [place]) gabapentin (gabapentin 300 mg Cap) glimepiride (glimepiride [...] PM EDT With: Edwin Garcia MD Where: [address] [address]- 2023 9:15 AM EST With: Edwin Garcia MD Where: [address] [id number]- Tuesday 1:00 PM EST With: Dixon Dubose PA-C Where: [facility] 2024 8:00 AM EDT With: Where: [address] [address]- Medications What How Much When Instructions Unchanged [...] Unchanged fluticasone nasal (Flonase 0.05 mg/ inh [place]) 1 Sprays Nasal Inhalation 2 times a [...] you for choosing us for your care. [facility] Medicine Office/Clinic Noteon 10-88-8727Fnpjpu Medicine Office/Clinic NoteFaleonard morse hospital Medicine Office/Clinic Note HPI Staff Dariel is an 84 year old male presenting for ER follow up ER followup: Hospital: [place] Visit date: 07/14/24 Symptoms the patient presented [...] patient was under the dosed. Patient stated Kelso was helping him more. Patient denies any [...] - Will do Tizanadine - Will do Kelso for pain - Follow up in 1 week. - Will send to pain Ordered: [facility] [place] Referral 2. Inguinal hernia of left side without obstruction or gangrene (K40.90: Unilateral inguinal hernia, without obstruction or gangrene, not specified as recurrent) - Pt cancelled his surgery. - NO pain at this time. - Encouraged follow up Ordered: [facility] [place] 3. Nonsmoker (Z78.9: Other specified health status) - Please continue to not smoke Ordered: Body Mass Index (BMI) documented 3008F Current tobacco non-user 1036F Depression Screening Negative 3352F [facility] [place] Ambulatory Referral Most recent diastolic blood pressure <80 mm Hg 3078F Patient screen for fall risk: no falls in last year or 1 fall with no injury in last year 1101F Systolic BP <130 mm Hg (Most Recent) 3074F Orders: acetaminophen-hydrocodone, 1 tab(s), Oral, q4hr for pain for 3 day(s), 12 tab(s), Refill(s) 0, [facility]/pharmacy #[id number], 178, cm, 07/24/24 14:57:00 EDT, Height/Length Dosing, 78.7, kg, 07/24/24 14:57:00 EDT, Weight Dosing tizanidine, 4 mg = 1 tab(s), Oral, q8hr, # 90 tab(s), Refills(s) 1, Pharmacy: [facility]/pharmacy #[id number], 178, cm, 07/24/24 14:57:00 [...] Oral, Daily, 1 refills Flonase 0.05 mg/inh [place], 1 spray(s), Nasal, BID gabapentin 300 mg Cap, 300 mg= 1 cap(s), Oral, Daily, 1 refills glimepiride 2 mg Tab, 2 mg= 1 tab(s), Oral, Daily, 1 refills Jantoven 5 mg oral tablet, 5 mg= 1 tab(s), Oral, Daily levothyroxine 25 mcg (0.025 mg) Tab, 25 mcg= 1 tab(s), Oral, Daily, 1 refills Kelso 325 mg-5 mg oral tablet, 1 tab(s), [...] to change: No. Househol (more content not included)...Core[facility] HospitalComment on above:Result Comment: Electronically Signed By: Edwin Garcia MD\.br\Date and Time Signed: 07/24/24 15:24 EDTAmbulatory Visit Summaryon 50-22-0913Romdbcxpuy Visit Summary Ambulatory Visit Summary DARIEL ZABALA [...] AM EST With: Edwin Garcia MD Where: [address] [address]- Tuesday 1:00 PM EST With: Gracy DOTY, Dixon Schumacher Where: [facility] 2024 8:00 AM EDT With: Where: [address] [address]- Medications What How Much When Instructions Unchanged [...] you for choosing us for your care. 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 Ordered: Body Mass [...] BID, 16 gram, Refill(s) 0, each nostril, [facility]/pharmacy #[id number], 178, cm, 07/03/24 10:05:00 [...] Hard of hearing Hyperl (more content not included)...Corey HospitalComment on above:Result Comment: Electronically Signed By: Adam COHN, Edwin Cole\.br\Date and Time Signed: 07/03/24 10:27 EDTHeart and Vascular Office/Clinic Noteon 26-58-7598[place] and Vascular Office/Clinic NoteHeart and Vascular Office/Clinic Note Chief Complaint f/u has questions about his health History of Present Illness The patient is an 84-year-old male who was seen by myself in the beginning of April due to syncope and collapse. His cardiac workup included Holter monitor which showed well-controlled atrial fibrillation. Transthoracic echocardiogram showed normal LVEF with mildly enlarged right ventricle, moderateTR, mildly dilated ascending aorta. Due to nonrevealing [...] 03/31/2015 Recorded influenza virus vaccine, inactivated 08/02/2014 [facility] HospitalComment on above:Result Comment: Electronically Signed By: Ericka COHN, Kashif Perez.br\Date and Time Signed: 06/11/24 13:14 EDTCBC w/ Auto Diffon 33-24-5857Nwolhzhty/100 WBC (Bld)0.9 %Normal0.0-2.0[facility] Comment on above:Performed By: #### [id number] #### [facility] [address] [place] [address]Ukanrluwu/Leukocytes Auto (Bld) [Pure # fraction]0.0 E9/LNormal 0.0-0.2FMadison HealthComment on above:Performed By: #### [id number] #### [facility] [address] [place] [address]Akgmcekcjhy (Bld) [#/Vol]0.1 E9/LNormal0.0-0.5FMadison HealthComment on above:Performed By: #### [id number] #### [facility] [address] [place] [address]Qmxxcssnjxz/100 WBC (Bld)2.4 %Normal0.0-8.0[facility] HospitalComment on above:Performed By: #### [id number] #### [facility] [address] [place] [address] 28[address]Gtyhqkivzgq distribution width (RBC) [Ratio]14.4 %High10.9-14.2 [facility] HospitalComment on above:Performed By: #### [id number] #### [facility] [address] [place] [address] 17[address]Zwlpncjuhw (Bld) [Volume fraction]42.2 %Vxloxc40.7-49.0[facility] HospitalComment on above:Performed By: #### [id number] #### [facility] [address] [place] [address]Xaaoslgbbz (Bld) [Mass/Vol]14.0 g/rEKvxrsd41.5-17.5FMadison HealthComment on above:Performed By: #### [id number] #### [facility] [address] [place] [address]Deshmdnrwbi (Bld) [#/Vol]1.4 E9/LNormal1.0-4.0[facility] HospitalComment on above:Performed By: #### [id number] #### [facility] [address] [place] [address]Zhenzraesaj/100 WBC (Bld)34.0 %Qqfuqc33.0-50.0[facility] HospitalComment on above:Performed By: #### [id number] #### [facility] [address] [place] [address]LNX (RBC) [Entitic mass]30.8 haTifrzw05.0-34.0[facility] HospitalComment on above:Performed By: #### [id number] #### [facility] [address] [place] [address]DJRP (RBC) [Mass/Vol]33.1 g/wGWjgtne48.4-36.0[facility] HospitalComment on above:Performed By: #### [id number] #### [facility] [address] [place] [address] 28[address]EYI (RBC) [Entitic vol]92.9 lYKfmerx39.0-100.0[facility] HospitalComment on above:Performed By: #### [id number] #### [facility] [address] [place] [address]Aiucvarnu (Bld) [#/Vol]0.4 E9/LNormal0.2-1.0[facility] HospitalComment on above:Performed By: #### [id number] #### [facility] [address] [place] [address]Lrmvkzyvftv (Bld) [#/Vol]2.2 E9/LNormal2.0-7.5FMadison HealthComment on above:Performed By: #### [id number] #### [facility] [address] [place] [address]Urqljvdkxpe/100 WBC (Bld)53.4 %Nakufh19.0-75.0[facility] HospitalComment on above:Performed By: #### [id number] #### [facility] [address] [place], [place] [address]Pzfrivsj031.0 E9/KOobtcl411.0-500.0[facility] Comment on above:Performed By: #### [id number] #### [facility] [address] [place], [place] [address]Wqdlcrep mean volume (Bld) [Entitic vol]9.8 fLNormal6.4-10.8 [facility] HospitalComment on above:Performed By: #### [id number] #### [facility] [address] [place] [address]26[address]ONB (Bld) [#/Vol]4.5 E12/LNormal4.3-5.9[facility] HospitalComment on above:Performed By: #### [id number] #### [facility] [address] [place] [address]MUX corrected for nucl RBC Auto (Bld) [#/Vol]4.2 E9/LNormal 4.0-11.0[facility] HospitalComment on above:Performed By: #### [id number] #### [facility] [address] [place] [address] 65[address]SBKRGAOFUBhclgbq By: SYSTEM SYSTEM on 47-40-7929Tafqfnp [Mass/Vol]4.2 g/dLNormal3.3 - 5.0 gm/dLRemisol ChemAlbumin/Globulin [Mass ratio] 1.4 {ratio}Normal1.1 - 2.2Remisol ChemALP [Catalytic activity/Vol]83 [iU]/d Ygijdc47 - 98 Int._Unit/LRemisol ChemALT No additional P-5'-P [Catalytic activity/Vol]14 [iU]/dNormal6 - 46 Int._Unit/LRemisol ChemAnion gap [Moles/Vol] 10 mmol/LNormal6 - 16 mEq/LRemisol ChemAST [Catalytic activity/Vol]22 [iU]/d Normal5 - 43 Int._Unit/LRemisol ChemBilirubin [Mass/Vol]0.9 mg/dLNormal0.0 - 1.1 mg/dLRemisol ChemCalcium [Mass/Vol]9.5 mg/dLNormal8.9 - 11.1 mg/dLRemisol Chem Chloride [Moles/Vol]103 mmol/STxhpoj475 - 111 mmol/LRemisol ChemCholesterol [Mass/Vol]168 mg/gGMnvceh916 - 200 mg/dLRemisol ChemCholesterol in HDL [Mass/Vol]54 mg/dLInvalid Interpretation CodeRemisol ChemComment on above:Result Comment: '>= 60 LOW RISK' '<= 40 HIGH RISK'Cholesterol in LDL [Mass/Vol]99 mg/dLNormal<=129mg/dLRemisol ChemCholesterol in VLDL [Mass/Vol]16 mg/dLNormal7 - 40 mg/dLRemisol ChemCO2 [Moles/Vol]29 mmol/JOikmxg83 - 31 mmol/LRemisol ChemCreatinine [Mass/Vol]1.1 mg/dLNormal0.5 - 1.3 mg/dLRemisol KtfllOPI14 mL/min/1.73 m4Mmksie>=59mL/min/1.73 z1Ifrqeil ChemGlobulin (S) [Mass/Vol]2.9 g/dLNormal1.4 - 4.0 gm/dLRemisol Chem Glucose [Mass/Vol]104 mg/bDMoqnll93 - 199 mg/dLRemisol ChemPotassium [Moles/Vol] 5.2 mmol/LNormal3.5 - 5.3 mmol/LRemisol ChemProstate specific Ag [Mass/Vol]1.3 ng/mLNormal0.1 - 3.5 ng/mLRemisol ChemComment on above:Interpretive Data: The concentration of PSA determined by different manufacturers can vary due to di fferences in assay methods and reagent specificity. Values obtained from different assay methods cannot be used interchangeably. The methodology used for this result was chemiluminescence using [employer]'s Access Hybritech PSA reagent.Protein [Mass/Vol]7.1 g/dLNormal6.0 - 7.8 gm/dLRemisol ChemSodium [Moles/Vol]137 mmol/ZXboevg539 - 145 mmol/LRemisol ChemTriglyceride [Mass/Vol]78 mg/dLNormal<=149mg/dLRemisol ChemUrea nitrogen [Mass/Vol]15 mg/dLNormal5 - 21 mg/dLRemisol ChemUrea nitrogen/Creatinine [Mass ratio]14 mg/bqOrumxg56 - 20 Remisol ChemCMPon 69-08-2304Ajcfkwk [Mass/Vol]4.2 g/dLNormal3.3-5.0[facility] HospitalComment on above:Performed By: #### [id number] #### [facility] [facility] [address], [place] [address]Ksibhmi/Globulin (S) [Mass conc ratio]1.9Wqzdic4.1-2.2FMadison HealthComment on above:Performed By: #### [id number] #### [facility] [address], [place] [address]ZNM [Catalytic activity/Vol]83 Int._Unit/VOirccv77-75QeeebrSheltering Arms HospitalComment on above:Performed By: #### [id number] #### [facility] [address], [place] [address]WFN No additional P-5'-P [Catalytic activity/Vol]14 Int._Unit/L Normal6-46S[facility] HospitalComment on above:Performed By: #### [id number] #### [facility] [address], [place] [address]Xcutf gap [Moles/Vol]10 mmol/LNormal6-16S[facility] HospitalComment on above:Performed By: #### [id number] #### [facility] [address], [place] [address]YZJ [Catalytic activity/Vol]22 Int._Unit/LNormal5-43[facility] HospitalComment on above:Performed By: #### [id number] #### [facility] [address], [place] [address]Finladfkq [Mass/Vol]0.9 mg/dLNormal0.0-1.1FMadison HealthComment on above:Performed By: #### [id number] #### [facility] [address], [place] [address]Otugeuc [Mass/Vol]9.5 mg/dLNormal8.9-11.1FMadison HealthComment on above:Performed By: #### [id number] #### [facility] [address], [place] [address]Gmhbakdl [Moles/Vol]103 mmol/DGnhsjd005-793XciyepSheltering Arms HospitalComment on above:Performed By: #### [id number] #### [facility] [address], [place] [address]SP5 [Moles/Vol]29 mmol/OIcqlyc28-29RyzpieSheltering Arms Hospital Comment on above:Performed By: #### [id number] #### [facility] [address], [place] [address]Fildialcvl [Mass/Vol]1.1 mg/dLNormal0.5-1.3FMadison HealthComment on above:Performed By: #### [id number] #### [facility] [address], [place] [address]Ttjosdxi (S) [Mass/Vol]2.9 g/dLNormal1.4-4.0S[facility] Arms HospitalComment on above:Performed By: #### [id number] #### [facility] [address], [place] [address]Aklwtfy [Mass/Vol]104 mg/dELafuhm44-020NehofySheltering Arms HospitalComment on above:Performed By: #### [id number] #### [facility] [address], [place] [address]Qxxtcfvyu [Moles/Vol]5.2 mmol/LNormal3.5-5.3FMadison HealthComment on above:Performed By: #### [id number] #### [facility] [address], [place] [address]Uprufie [Mass/Vol]7.1 g/dLNormal6.0-7.8S[facility] Arms HospitalComment on above:Performed By: #### [id number] #### [facility] [address], [place] [address]Cshigb [Moles/Vol]137 mmol/EQkdpan978-534ZyuqtfSheltering Arms HospitalComment on above:Performed By: #### [id number] #### [facility] [address], [place] [address]Effk nitrogen [Mass/Vol]15 mg/dLNormal5-21S[facility] Arms HospitalComment on above:Performed By: #### [id number] #### [facility] [address], [place] [address]Fbdz nitrogen/Creatinine [Mass ratio]14 No UutitJbfzsg50-75 [facility] HospitalComment on above:Performed By: #### [id number] #### [facility] [address], [place] [address]KYUFEOFNJXFcsoyxd By: SYSTEM SYSTEM on 75-82-1969Clagcsswn/100 WBC (Bld)0.9 %Normal0.0 - 2.0 %Remisol HemeBasophils/Leukocytes Auto (Bld) [Pure # fraction]0.0 E9/LNormal0.0 - 0.2 E9/LRemisol HemeEosinophils (Bld) [#/Vol]0.1 E9/LNormal0.0 - 0.5 E9/LRemisol HemeEosinophils/100 WBC (Bld)2.4 %Normal0.0 - 8.0 %Remisol HemeErythrocyte distribution width (RBC) [Ratio]14.4 %High10.9 - 14.2 %Remisol HemeHematocrit (Bld) [Volume fraction]42.2 %Yaltfj92.7 - 49.0 % Remisol HemeHemoglobin (Bld) [Mass/Vol]14.0 g/fEQpmbmo85.5 - 17.5 gm/dLRemisol HemeLymphocytes (Bld) [#/Vol]1.4 E9/LNormal1.0 - 4.0 E9/LRemisol Heme Lymphocytes/100 WBC (Bld)34.0 %Delgwn60.0 - 50.0 %Remisol HemeMCH (RBC) [Entitic mass]30.8 yyOidlzo40.0 - 34.0 pgRemisol HemeMCHC (RBC) [Mass/Vol]33.1 g/dL Abpvjf43.4 - 36.0 gm/dLRemisol HemeMCV (RBC) [Entitic vol]92.9 mFBtonpx04.0 - 100.0 fLRemisol HemeMonocytes (Bld) [#/Vol]0.4 E9/LNormal0.2 - 1.0 E9/LRemisol HemeMonocytes/100 WBC (Bld)9.3 %Normal4.0 - 14.0 %Remisol HemeNeutrophils (Bld) [#/Vol]2.2 E9/LNormal2.0 - 7.5 E9/LRemisol HemeNeutrophils/100 WBC (Bld)53.4 % Xngldh10.0 - 75.0 %Remisol GrrgWitqmugw949.0 E9/HJmrndf014.0 - 500.0 E9/LRemisol HemePlatelet mean volume (Bld) [Entitic vol]9.8 fLNormal6.4 - 10.8 fLRemisol HemeRBC (Bld) [#/Vol]4.5 E12/LNormal4.3 - 5.9 E12/LRemisol HemeWBC corrected for nucl RBC Auto (Bld) [#/Vol]4.2 E9/LNormal4.0 - 11.0 E9/LRemisol HemeLipid Panel on 16-89-0874Vdutmmohzjy [Mass/Vol]168 mg/dUKtywjj452-021RdlfjoSheltering Arms HospitalComment on above:Performed By: #### [id number] #### [facility] [address], [place] [address]Epgiymhklyf in HDL [Mass/Vol]54 mg/dLInvalid Interpretation CodeSheltering Arms HospitalComment on above:Result Comment: '>= 60 LOW RISK' '<= 40 HIGH RISK'Performed By: #### [id number] #### [facility] [address], [place] [address]Kkfiwshqjcn in LDL [Mass/Vol]99 mg/dLNormal<=129S[facility] Arms HospitalComment on above:Performed By: #### [id number] #### [facility] [address], [place] [address]Dqumwiulark in VLDL [Mass/Vol]16 mg/dLNormal7-40S[facility] Arms HospitalComment on above:Performed By: #### [id number] #### [facility] [address], [place] [address]Wcrrgrhlqxsu [Mass/Vol]78 mg/dLNormal<=149S[facility] Arms HospitalComment on above:Performed By: #### [id number] #### [facility] [address] [place] [address]KTA Screen, Totalon 23-70-5515Kpvawiqr specific Ag [Mass/Vol] 1.3 ng/mLNormal0.1-3.5FMadison HealthComment on above:Result Comment: The concentration of PSA determined by different manufacturers can vary due to differences in assay methods and reagent specificity. Values obtained from different assay methods cannot be used interchangeably. The methodology used for this result was chemiluminescence using [employer]'s Access Hybritech PSA reagent.Performed By: #### [id number] #### [facility] [address] [place] [address]NJPQUPNRUVjgeiyi By: Sara Torres on 18-51-1738Gtwqenj [Mass/Vol]92 mg/qVAmhwut91 - 99 mg/dLLA[facility] [place] POC SubsectionComment on above:Result Comment: Notified RN/MDPOC Device [id number] 1Invalid Interpretation Code [facility] P[facility] SubsectionPOC User [id number] 1Invalid Interpretation CodeLA[facility] [place] [facility] SubsectionPOC UsernameDIDION AMBERInvalid Interpretation CodeLA[facility] [place] P[facility] SubsectionCOAGULATIONOrdered By: Starr Tadeo on 82-09-0228cEHP Coag (PPP) [Time]35.8 mEdjsor86.1 - 36.5 second(s)[facility] Auto CoagComment on above: Interpretive Data: Parameter 15 days - 4 weeks 1 [...] the same coagulation reagent and instrumentation as [facility]. Currently there are no coagulation studies available worldwide for children to 14 days, andno normal ranges. Heparin therapeutic range (represented by Anti-Factor Xa activity of 0.2 - 0.4 U/mL) corresponds to PTT of 56.6 - 109.0 sec.INR Coag (PPP) [Relative time]1.19 {INR}Invalid Interpretation CodeLAWTON INDI[facility] [place] Auto CoagComment on above:Interpretive Data: INR results are specifically intended to assess patients stabilized on long-term Anticoagulation therapy suggested INR s Less Intensive Anticoagulation 2.0 3.0 Conventional Range 3.0 4.5PT Coag (PPP) [Time]13.4 sHigh9.4 - 12.5 second(s)[facility] Auto CoagComment on above:Interpretive Data: 15 days - 4 weeks 1 - 5 months 6 -11 months 1 5 years 6 10 years 11 -17 years Mean: 11.2 (9.5 12.6) Mean: 11.0 (9.7 12.8) Mean: 11.0 (9.8 13.0) Mean: 11.3 (9.9 13.4) Mean: 11.7 (10.0 14.6) Mean: 11.8 (10.0 - 14.1) Pediatric Reference ranges were obtained from a study by meka Bukr al. prepared from 1437 samples obtained at 7 different centers using the same coagulation reagent and instrumentation as [facility]. Currently there are no coagulation studies available worldwide for children to 14 days, andno normal ranges.CHEMISTRYOrdered By: SYSTEM SYSTEM on 55-35-0310Rcfxc gap [Moles/Vol]10 mmol/LNormal6 - 16 mEq/LRemisol ChemCalcium [Mass/Vol]9.1 mg/dL Normal8.9 - 11.1 mg/dLRemisol ChemChloride [Moles/Vol]102 mmol/YJudbge505 - 111 mmol/LRemisol ChemCO2 [Moles/Vol]28 mmol/NKzepdh96 - 31 mmol/LRemisol Chem Creatinine [Mass/Vol]1.0 mg/dLNormal0.5 - 1.3 mg/dLRemisol MoufxPEI05 mL/min/1.73 l8Ujslhv>=59mL/min/1.73 y0Ierqorw ChemGlucose [Mass/Vol]98 mg/dL Vxvvcl36 - 199 mg/dLRemisol ChemPotassium [Moles/Vol]4.3 mmol/LNormal3.5 - 5.3 mmol/LRemisol ChemSodium [Moles/Vol]136 mmol/PVrbwkv541 - 145 mmol/LRemisol Chem Urea nitrogen [Mass/Vol]14 mg/dLNormal5 - 21 mg/dLRemisol ChemUrea nitrogen/Creatinine [Mass ratio]14 mg/vgDlklpg20 - 20Remisol ChemHEMATOLOGY Ordered By: SYSTEM SYSTEM on 95-58-9972Pzlvvgsmd/100 WBC (Bld)1.0 %Normal0.0 - 2.0 %Remisol HemeBasophils/Leukocytes Auto (Bld) [Pure # fraction]0.0 E9/LNormal 0.0 - 0.2 E9/LRemisol HemeEosinophils (Bld) [#/Vol]0.2 E9/LNormal0.0 - 0.5 E9/L Remisol HemeEosinophils/100 WBC (Bld)3.9 %Normal0.0 - 8.0 %Remisol Heme Erythrocyte distribution width (RBC) [Ratio]14.0 %Pesnwi38.9 - 14.2 %Remisol HemeHematocrit (Bld) [Volume fraction]39.1 %Sozwci26.7 - 49.0 %Remisol Heme Hemoglobin (Bld) [Mass/Vol]13.0 g/dLLow13.5 - 17.5 gm/dLRemisol HemeLymphocytes (Bld) [#/Vol]1.4 E9/LNormal1.0 - 4.0 E9/LRemisol HemeLymphocytes/100 WBC (Bld) 31.0 %Hktcxc12.0 - 50.0 %Remisol HemeMCH (RBC) [Entitic mass]30.3 wwFvkpsx70.0 - 34.0 pgRemisol HemeMCHC (RBC) [Mass/Vol]33.3 g/fQMkxpuq92.4 - 36.0 gm/dLRemisol HemeMCV (RBC) [Entitic vol]91.2 yYHcvske14.0 - 100.0 fLRemisol HemeMonocytes (Bld) [#/Vol]0.4 E9/LNormal0.2 - 1.0 E9/LRemisol HemeMonocytes/100 WBC (Bld)8.8 %Normal4.0 - 14.0 %Remisol HemeNeutrophils (Bld) [#/Vol]2.5 E9/LNormal2.0 - 7.5 E9/LRemisol HemeNeutrophils/100 WBC (Bld)55.3 %Kjszwh70.0 - 75.0 %Remisol Heme Kayymfge121.0 E9/PRyqclc124.0 - 500.0 E9/LRemisol HemePlatelet mean volume (Bld) [Entitic vol]9.7 fLNormal6.4 - 10.8 fLRemisol HemeRBC (Bld) [#/Vol]4.3 E12/L Normal4.3 - 5.9 E12/LRemisol HemeWBC corrected for nucl RBC Auto (Bld) [#/Vol] 4.6 E9/LNormal4.0 - 11.0 E9/LRemisol HemeCHEMISTRYOrdered By: Ania Sotomayor on 12-01-2023U Qykpnqerbv48.5 mg/dLInvalid Interpretation CodeRemisol ChemU Prot/Creat RatioNOT CALCULATEDInvalid Interpretation Code0.00 - 200.00Remisol ChemUr Total Proteinmg/dLInvalid Interpretation CodeRemisol ChemCHEMISTRYOrdered By: SYSTEM SYSTEM on 12-01-2023 Microalbmicrogram/mLNormal0.0 - 19.0 mcg/mL Remisol ChemAlbumin [Mass/Vol]3.9 g/dLNormal3.3 - 5.0 gm/dLRemisol Chem Albumin/Globulin [Mass ratio]1.6 {ratio}Normal1.1 - 2.2Remisol ChemAlk Phos75 [iU]/xMdbllf33 - 98 Int._Unit/LRemisol KswiGQK66 [iU]/dNormal6 - 46 Int._Unit/L Remisol ChemAnion gap [Moles/Vol]9 mmol/LNormal6 - 16 mEq/LRemisol FdfzRNW55 [iU]/dNormal5 - 43 Int._Unit/LRemisol ChemBili Total0.9 mg/dLNormal0.0 - 1.1 mg/dLRemisol ChemCalcium [Mass/Vol]8.7 mg/dLLow8.9 - 11.1 mg/dLRemisol Chem Chloride [Moles/Vol]104 mmol/BMbquyl217 - 111 mmol/LRemisol ChemCholesterol [Mass/Vol]156 mg/xUKwiims131 - 200 mg/dLRemisol ChemCholesterol in HDL [Mass/Vol]51 mg/dLInvalid Interpretation CodeRemisol ChemComment on above:Result Comment: '>= 60 LOW RISK' '<= 40 HIGH RISK'Cholesterol in LDL [Mass/Vol]89 mg/dLNormal<=129mg/dLRemisol ChemCholesterol in VLDL [Mass/Vol]18 mg/dLNormal7 - 40 mg/dLRemisol ChemCO2 [Moles/Vol]30 mmol/NZvcbju23 - 31 mmol/LRemisol ChemCreatinine [Mass/Vol]1.1 mg/dLNormal0.5 - 1.3 mg/dLRemisol GiknbRFE47 mL/min/1.73 x6Mxxcqz>=59mL/min/1.73 x8Fcvjxzp ChemGlobulin (S) [Mass/Vol]2.5 g/dLNormal1.4 - 4.0 gm/dLRemisol Chem Glucose [Mass/Vol]72 mg/tJQoueel22 - 199 mg/dLRemisol ChemPotassium [Moles/Vol] 4.2 mmol/LNormal3.5 - 5.3 mmol/LRemisol ChemProtein [Mass/Vol]6.4 g/dLNormal6.0 - 7.8 gm/dLRemisol ChemSodium [Moles/Vol]139 mmol/SSkynnw475 - 145 mmol/LRemisol ChemTriglyceride [Mass/Vol]92 mg/dLNormal<=149mg/dLRemisol ChemUrea nitrogen [Mass/Vol]11 mg/dLNormal5 - 21 mg/dLRemisol ChemUrea nitrogen/Creatinine [Mass ratio]10 mg/hcFpjtwj95 - 20Remisol ChemCHEMISTRYOrdered By: Zena Barrera on 57-30-6970KhR1z (Bld) [Mass fraction]5.6 %Normal<=5.9%[facility] ChemAutoSSHEMATOLOGY Ordered By: SYSTEM SYSTEM on 49-40-6100Wzwthwjg Absolute0.0 E9/LNormal0.0 - 0.2 E9/LRemisol HemeBasophils/100 WBC (Bld)0.4 %Normal0.0 - 2.0 %Remisol HemeEos Absolute0.2 E9/LNormal0.0 - 0.5 E9/LRemisol HemeEosinophils/100 WBC (Bld)2.9 % Normal0.0 - 8.0 %Remisol HemeErythrocyte distribution width (RBC) [Ratio]14.0 % Qinyth02.9 - 14.2 %Remisol HemeHematocrit (Bld) [Volume fraction]37.0 %Low37.7 - 49.0 %Remisol HemeHemoglobin (Bld) [Mass/Vol]12.1 g/dLLow13.5 - 17.5 gm/dL Remisol HemeLymph Absolute1.8 E9/LNormal1.0 - 4.0 E9/LRemisol Heme Lymphocytes/100 WBC (Bld)29.3 %Lvfvld86.0 - 50.0 %Remisol HemeMCH (RBC) [Entitic mass]30.8 pzWqfvdt11.0 - 34.0 pgRemisol HemeMCHC (RBC) [Mass/Vol]32.8 g/dL Sgqvbm98.4 - 36.0 gm/dLRemisol HemeMCV (RBC) [Entitic vol]93.8 rQHkikfm18.0 - 100.0 fLRemisol HemeMono Absolute0.5 E9/LNormal0.2 - 1.0 E9/LRemisol Heme Monocytes/100 WBC (Bld)7.9 %Normal4.0 - 14.0 %Remisol HemeNeutro Absolute3.6 E9/LNormal2.0 - 7.5 E9/LRemisol HemeNeutro Auto59.5 %Xevlyn15.0 - 75.0 %Remisol DpbtJqzzbrsb624.0 E9/FGvihzw278.0 - 500.0 E9/LRemisol HemePlatelet mean volume (Bld) [Entitic vol]9.5 fLNormal6.4 - 10.8 fLRemisol HemeRBC3.9 E12/LLow4.3 - 5.9 E12/LRemisol HemeWBC6.0 E9/LNormal4.0 - 11.0 E9/LRemisol HemeHEMATOLOGYOrdered By: Starr Tadeo on 02-54-5854OMQA Man0 3Wvuuvt6 - 0Remisol HemeBasic Metabolic Panelon 27-91-8060Bcioxtq [Mass/Vol]9.7992678 mg/dLNormal8.6-10.3 mg/dLNoCofio Software Other Chloride [Moles/Vol]102 mmol/ALypjub61-966 mmol/LNorth CURRENT Other CO2 [Moles/Vol]32.74406963 mmol/LHigh21.0-31.0 mmol/L [employer] Other Creatinine [Mass/Vol]1.22150866 mg/dLNormal0.70-1.30 mg/dLNoCofio Software Other GFR/1.73 sq M.predicted MDRD (S/P/Bld) [Vol rate/Area] mL/min/{1.73_m2}[employer] Other Glucose [Mass/Vol]93 mg/sTXeeyfo52-924 mg/dLPingMe Other Potassium [Moles/Vol]4.73323444 mmol/LNormal3.5-5.1 mmol/LNmercy hospital [facility] CURRENT Other Sodium [Moles/Vol]138 mmol/VJvkkxl020-769 mmol/LNmercy hospital st. [facility] CURRENT Other Urea nitrogen [Mass/Vol]13 mg/dLNormal7-25 mg/dLCofio Software Other Complete Blood Count Auto Diffon 25-93-9575Krfdmwqqb (Bld) [#/Vol]0.705657003 10*3/uLNormal0.0-0.2 10*3/[employer] Other Basophils/100 WBC (Bld)1.000 %. %[employer] Other Eosinophils (Bld) [#/Vol]0.917543082 10*3/uLNormal0.0- 0.45 10*3/[employer] Other Eosinophils/100 WBC (Bld)2.100 %. %[employer] Other Erythrocyte distribution width (RBC) [Ratio]14.000 % Yaxstm43.0-14.8 %[employer] Other Hematocrit (Bld) [Volume fraction]38.800 %Filadb79.8- 50.0 %[employer] Other Hemoglobin (Bld) [Mass/Vol]13.929433 g/qPEfgrjw94.0- 17.0 g/dLCofio Software Other Lymphocytes (Bld) [#/Vol]1.665817293 10*3/uLNormal 1.00-4.8 10*3/[employer] Other Lymphocytes/100 WBC (Bld)21.800 %. %[employer] Other MCH (RBC) [Entitic mass]31.5000 nlHmydrg50.5-35.2 pg [employer] Other MCV (RBC) [Entitic vol]92.7000 gPTtzvnz45.5-101 fL [employer] Other Monocytes (Bld) [#/Vol]0.817332111 10*3/uLNormal0.0- 0.8 10*3/[employer] Other Monocytes/100 WBC (Bld)8.500 %. %[employer] Other Neutrophils (Bld) [#/Vol]4.172510949 10*3/uLNormal1.8- 7.7 10*3/[employer] Other Neutrophils/100 WBC (Bld)66.600 %. %[employer] Other Platelet mean volume (Bld) [Entitic vol]9.4000 fL Normal6.6-10.1 fLCofio Software Other Platelets (Bld) [#/Vol]153 10*3/oKJfmkyk958-393 10*3/W[employer] Other RBC (Bld) [#/Vol]4.19 10*6/uLNormal3.90-5.60NoCofio Software Other WBC (Bld) [#/Vol]6.136913119 10*3/uLNormal4.1-10.5 10*3/W[employer] Other Complete Blood Count Auto Diff6.1 10*3/uLNormal4.1- 10.5 10*3/W[employer] Other Complete Blood Count Auto Diff34.0 g/bZDdtjsl04.5-35.6 g/dLNort CURRENT Other Complete Blood Count Auto Diff0.1 /100{WBC}Normal0-0.5 /100{WBC}PingMe Other Prothrombin Time INRon 20-67-9946ILH Coag (PPP) [Relative time]2.4 {INR}PingMe Other PT Coag (PPP) [Time]27.800 sHigh9.0-12.9 [facility] CURRENT Other Coding Summaryon 77-80-8977Vnqoda SummaryCODING DATE: 05/12/2020 [facility] STATUS: Home PAYOR: Medicare MC ADMIT [...] By: Aidee Horan Date Saved: 05/12/2020 02:18 [facility]34[facility] [address] [place] [address] Clinical Summary PERSON INFORMATION Name: DARIEL ZABALA Age: 80 Years Sex: MALE : 1940 MRN: Acct#: Visit Reason: UC - Ear Problem; BILAT EAR PROBLEM Arrival: 05/08/2020 09:32:00 Discharge: 05/08/2020 10:15:00 LOS: 000 00:43 Check In: 05/08/2020 09:32:00 Checkout: 05/08/2020 10:15:00 Address: [address] [place] [id number] PCP: Provider, Unlisted PROVIDER INFORMATION Provider Role [...] Earwax Buildup, Adult Follow-Up: With: Address: When: [facility], [address] [place] [address] [phone] Business (1) Comments: Please follow-up with your Doctor or Dr. Arellano, Medical Doctor meteorologist liaison, call their offices and make ointment to be seen in 3 days or sooner for continued care, please purchase hbqn-oef-nhbnzng Debrox which helps breakdown earwax, take all your medications as previously prescribed, drink plenty ofwater for hydration, and return back to urgent care center for any worsening symptoms, concerns, orcomplications. DIAGNOSIS: 1:Impacted cerumen of both ears Patient Understands: Yes - Patient/family/caregiver verbalizes understanding of instructions given Comment:[facility] [id number] Patient Summary [facility] ? Urgent Care [address] [place], [place] [id number] PATIENT DISCHARGE INSTRUCTIONS Patient Information Name: DARIEL ZABALA Age: 80 Years Date of : 1940 Reason For Visit: UC - Ear Problem; BILAT EAR PROBLEM Arrival Time: 05/08/2020 09:32:00 Primary Care Physician: Provider, Unlisted Attending Physician: Larry Billingsley PA-C Comment: Patient Education With: Address: When: [facility], [address] [place] [address] [phone] Business (1) Comments: Please follow-up with your Doctor or Dr. Arellano Medical Doctor meteorologist liaison, call their offices and make ointment to be seen in 3 days or sooner for continued care, please purchase tshx-ktc-mkfwtua Debrox which helps breakdown earwax, take all your medications as previously prescribed, drink plenty ofwater for hydration, and return back to urgent care center for any worsening symptoms, concerns, orcomplications. Earwax Buildup, Adult The ears produce a substance called earwax that helps keep bacteria out of the ear and protects theskin in the ear canal. Occasionally, earwax can build up in the ear and cause discomfort or hearingloss. What increases the risk? This condition is [...] Follow these instructions at home: ? Take urxn-lgh-vdtsapa and prescription medicines only as told by [...] clean them according to instructions from the grinding wheel facer and your health care provider. Contact a [...] 12/08/2005 Document Revised: 10/12/2018 Document Reviewed: 01/11/2018 [employer] Interactive Patient Education ? 2019 [employer] Medication Information: The exam and treatment you received today in the [facility] Emergency Department were for an urgent problem and are not intended as complete care. It is important for you to follow up with a doctor, nurse practitioner, or physician?s occupational therapist assistants for ongoing care. If your symptoms become worse or you donot improve as expected and you are unable [...] so we can reach you if necessary. [facility] Emergency Department has provided you with a complete list of medications post discharge. Please inform your cooking chef/provider of your visit and for further instruction [...] both ears (H61.23) UC - Ear Problem ([id number]) If you received any narcotics, sedation, or [...] Centers for Disease Control and Prevention July 2014[facility] Patient Handouton 52-91-9177Wsxrhfv HandoutPatient Education Materials Follows: Earwax Buildup, Adult The ears produce a substance called earwax that helps keep bacteria out of the ear and protects theskin in the ear canal. Occasionally, earwax can build up in the ear and cause discomfort or hearingloss. What increases the risk? This condition is [...] Follow these instructions at home: ? Take jclh-izs-hqjxukl and prescription medicines only as told by [...] clean them according to instructions from the grinding wheel facer and your health care provider. Contact a [...] 12/08/2005 Document Revised: 10/12/2018 Document Reviewed: 01/11/2018 [employer] Interactive Patient Education ? 2019 [employer] Recordon [id number][facility] ? [facility] Care [address] [place], [place] [id number] PATIENT DISCHARGE INSTRUCTIONS Patient Information Name: DARIEL ZABALA Age: 80 Years Date of : 1940 Reason For Visit: UC - Ear Problem; BILAT EAR PROBLEM Arrival Time: 05/08/2020 09:32:00 Primary Care Physician: Provider, Unlisted Attending Physician: Larry Billingsley PA-C Comment: Visit Diagnosis: Diagnoses This Visit Impacted cerumen of both ears (H61.23) UC - Ear Problem ([id number]) If you received any narcotics, sedation, or [...] legal documents With: Address: When: Andrés Arellano [facility], [address] [place] [id number] Business (1) Comments: Please follow-up with your Doctor or Dr. Arellano, Medical Doctor meteorologist liaison, call their offices and make ointment to be seen in 3 days or sooner for continued care, please purchase kqhk-qsi-edulqza Debrox which helps breakdown earwax, take all your medications as previously prescribed, drink plenty ofwater for hydration, and return back to urgent care center for any worsening symptoms, concerns, orcomplications. Medication Information: The exam and treatment you received today in the [facility] were for an urgent problem and are not intended as complete care. It is important for you to follow up with a doctor, nurse practitioner, or physician?s occupational therapist assistants for ongoing care. If your symptoms become [...] so we can reach you if necessary. [facility] has provided you with a complete list of medications post discharge. Please inform your cooking chef/provider of your visit and for further instruction [...] bacteria out of the ear and protects theskin in the ear canal. Occasionally, earwax can build up in the ear and cause discomfort or hearingloss. What increases the risk? This condition is [...] Follow these instructions at home: ? Take esyh-svb-jwvjnbc and prescription medicines only as told by [...] clean them according to instructions from the grinding wheel facer and your health care provider. Contact a [...] 12/08/2005 Document Revised: 10/12/2018 Document Reviewed: 01/11/2018 [employer] Interactive Patient Education ? 2019 [employer] Viruses or Bacteria What?s got you [...] Centers for Disease Control and Prevention July 2014[facility] Vital Signs Date TimeVital SignValuePerforming KlyzrlbyyKgmanldt88-52-5712 13:28-0400Body yonfquuqtev91.3 [degF]Yanique Mcneill BLOCK SAW OPERATOR-BC Work Phone: [phone]09-09-2025 13:28-0400 Diastolic blood mm[Hg]Yanique Mcneill BLOCK SAW OPERATOR-BC Work Phone: [phone] [place], [place] [address]09-09-2025 13:28-0400 Heart rate65 /Griselda Mcneill BLOCK SAW OPERATOR-BC Work Phone: [phone]09-09-2025 13:28-0400 Respiratory rate18 /Griselda Mcneill BLOCK SAW OPERATOR-BC Work Phone: [phone]09-09-2025 13:28-0400 SaO2% (BldA) [Mass fraction]98 %Yanique Mcneill BLOCK SAW OPERATOR-BC Work Phone: 1(109)649-[address] [place], [place] 7733909-09-2025 13:28-0400 Systolic blood tnrjylss936 mm[Hg]Yanique Mcneill BLOCK SAW OPERATOR-BC Work Phone: [phone] [place], [place] 3051209-09-2025 06:00-0400 Body kfbeeu26.5 kgYanique Mcneill BLOCK SAW OPERATOR-BC Work Phone: [phone])[address]09-08-2025 12:49-0400 Body iupphy684.34 cmSmuriel Mcneill BLOCK SAW OPERATOR-BC Work Phone: 1([phone])[address]08-10-2025 11:50-0400 Body rvpritsiqka68.7 [degF]Erika Crisostomo MD Work Phone: [facility] Trdiao71-47-7412 11:50-0400Diastolic blood szzxvetx33 mm[Hg]Erika Crisostomo MD Work Phone: 1(419)986-[address] [place], [place] [address]en-Gauge Phaqnc97-71-1507 11:50-0400Heart rate 67 /minErika Crisostomo MD Work Phone: 1(419)[address] [place], [place] [address]en-Gauge Rrxoci35-36-7967 11:50-0400 Respiratory rate16 /minErika Crisostomo MD Work Phone: 1(419)[address] [place], [place] [address]en-Gauge Xqygkp18-52-1173 11:50-1051IfE5% (BldA) [Mass fraction]99 %Erika Crisostomo MD Work Phone: 1(419)[facility] [place] [address] [employer] Zwmihr21-90-4001 11:50-0400Systolic blood fqfxscte430 mm[Hg]Erika Crisostomo MD Work Phone: 1(367)[address] [place] [address] [employer] Lohghl29-65-4991 04:38-0400Body mass index (BMI) [Ratio]22.65 kg/i5GtdsdcErika Crisostomo MD Work Phone: 1(009)[address] [place] [address] [employer] Zebvgw51-00-8629 04:38-0400Body ydhmpd68.6 kgErika Crisostomo MD Work Phone: 1(020)[address] [place] [address] [employer] Jrbsyr45-68-5128 12:37-0400Body fcoygo225.8 cmAsonya Crisostomo MD Work Phone: 1(018)[facility] [place] [address] [employer] Vxzebe27-07-3080 15:00-0400Diastolic blood rhqeyntd04 mm[Hg]Axel Monet DO Work Phone: Vtf [facility] My PetLymgju04-37-1139 15:00-0400Heart rate71 /minAxel Monet DO Work Phone: Hzq [facility]healthcicayda Xnmcns14-88-7390 15:00-0400 Respiratory rate15 /minMiclolis Monet DO Work Phone: [facility]qn [facility] My PetAqptsz10-41-8911 15:00-0400Systolic blood ikjzhcuq952 mm[Hg]Axel Monet DO Work Phone: [facility]minor [facility] Center[facility]it My PetFgcgha18-91-6485 13:00-0400Body vimmwmeueae73.7 [degF]Axel Monet DO Work Phone: bminor [facility] CenterPit My PetOkgpkn17-21-9697 06:30-9351TmB7% (BldA) [Mass fraction]100 %Axel Monet DO Work Phone: [facility] CenterPit My PetCasbmk81-66-9808 04:00-0400Body mass index (BMI) [Ratio]26.48 kg/s9Qlugccgkrishan Monet DO Work Phone: Gminor [facility] CenterPit My PetVctsgd01-69-4574 04:00-0400Body .7 kgMichaekrishan Monet DO Work Phone: b[facility] CenterPit My PetKiisab53-95-9708 10:06-0400Body iifiel868.8 cmMichaekrishan Monet DO Work Phone: [facility] CenterPit My PetCoxnjq84-44-9448 10:27-0500Body mass index (BMI) [Ratio]24.74 kg/h4NnnixmEmiliano Escamilla MD Work Phone: [facility] CenterZtxvyksarh75-56-1262 10:27-0500Body rtppmi19.11 kgEmiliano Escamilla MD Work Phone: [facility] CenterDoagkkbfqt76-31-0501 10:27-0500Diastolic blood wrskkoyf73 mm[Hg]Emiliano Escamilla MD Work Phone: [facility] CenterVssycqfjld04-30-1472 10:27-0500Heart rate87 /min Emiliano Escamilla MD Work Phone: [facility] CenterVpjwzneezs74-82-0980 10:27-0500Systolic blood dlbajinv169 mm[Hg]Emiliano Escamilla MD Work Phone: [facility] CenterIyzyxuyjaf23-43-6314 14:27-0500Diastolic blood mhsbktyj77 mm[Hg]Axel Hernández [address] [place], [place] 2641601-06-2025 14:27-0500Heart rate66 /minMichael Hernández [address] [place], [place] 2369301-06-2025 14:27-0500Mean blood wvslsfed470 mm[Hg]Axel Hernández [address] [place], [place] 2369301-06-2025 14:27-0500 Respiratory rate18 /minMichael Hernández [address] [place], [place] 2369301-06-2025 14:27-8414ChE8% (BldA) [Mass fraction]95 %Axel Hernández [address] [place], [place] 2369301-06-2025 14:27-0500 Systolic blood vtkpalmi489 mm[Hg]Axel Hernández [address] [place], [place] 2369301-06-2025 13:23-0500Blood Pressure LocationMichael Hernández [address] [place], [place] 2369301-06-2025 13:23-0500Body xtavyshhdnk65.8 [degF]Axel Hernández [address] [place], [place] 2369301-06-2025 13:23-0500 Diastolic blood lelrkdgz72 mm[Hg]Axel Hernández [address] [place], [place] 2369301-06-2025 13:23-0500Heart rate63 /minMichael Hernández [address] [place], [place] 2369301-06-2025 13:23-0500Mean blood zzkmcjod86 mm[Hg]Axel Hernández [address] [place], [place] 2369301-06-2025 13:23-0500 Respiratory rate20 /minMichael Hernández [address] [place], [place] 2369301-06-2025 13:23-6316NeX3% (BldA) [Mass fraction]99 %Axel Hernández [address] [place], [place] 2369301-06-2025 13:23-0500 Systolic blood ytxlodwj465 mm[Hg]Axel Hernández [address] [place], [place] 2369301-06-2025 13:05-0500Body wudukguizso81.34 [degF]Axel Edgar [address] [place], [place] 2369301-06-2025 13:05-0500 Diastolic blood yhmfqtcv86 mm[Hg]Axel Edgar [address] [place], [place] 2369301-06-2025 13:05-0500Heart rate65 /minMichael Hernández [address] [place], [place] 2369301-06-2025 13:05-0500Mean blood cqskmrof91 mm[Hg]Axel Edgar [address] [place], [place] 2369301-06-2025 13:05-0500 Respiratory rate16 /minMichael Hernández [address] [place], [place] 2369301-06-2025 13:05-7390VwF5% (BldA) [Mass fraction]97 %Axel Edgar [address] [place], [place] 2369301-06-2025 13:05-0500 Systolic blood nxkpsniq137 mm[Hg]Axel Edgar [address] [place], [place] 2369301-06-2025 12:40-0500Body jdvpomeqezo00.7 [degF]Axel Edgar [address] [place], [place] 2369301-06-2025 12:35-0500 Respiratory rate12 /minMichael Hernández [address] [place], [place] 2369301-06-2025 12:30-0500Body jjwliujaubl35.8 [degF]Axel Hernández [address] [place], [place] 2369301-06-2025 12:30-0500 Respiratory rate13 /minMichael Hernández [address] [place], [place] 2369301-06-2025 12:25-0500Body jtouzwfaayc13.8 [degF]Axel Hernández [address] [place], [place] 2369301-06-2025 12:25-0500 Respiratory rate15 /minMichael Hernández [address]01-06-2025 12:20-0500Body gxawpfloohl15.8 [degF]Axel Hernández [address]01-06-2025 09:55-0500Mean blood xhpizbbe81 mm[Hg]Axel Hernández [address]01-06-2025 09:52-0500Mean blood smzvhqlu95 mm[Hg]Axel Hernández [address]12-17-2024 10:36-0500 Diastolic blood brbkzhqa73 mm[Hg]Axel Hernández [address] [place], [place] 2369312-17-2024 10:36-0500Heart rate57 /minMichael Hernández [address] [place], [place] 2369312-17-2024 10:36-0500Mean blood mm[Hg]Axel Hernández [address] [place], [place] 2231412-17-2024 10:36-0500 Systolic blood ypgcsscq914 mm[Hg]Axel Hernández [address] [place], [place] 2231412-17-2024 10:34-0500Heart rate56 /minMichael Hernández [address] [place], [place] 2231412-17-2024 10:34-4778VyQ7% (BldA) [Mass fraction]100 %Axel Hernández [address] [place], [place] 2231412-17-2024 10:34-0500 Diastolic blood lmaceapx39 mm[Hg]Axel Hernández [address] [place], [place] 2231412-17-2024 10:34-0500Mean blood afdgoxue504 mm[Hg]Axel Hernández [address] [place], [place] 2231412-17-2024 10:34-0500 Systolic blood xxfkwuku957 mm[Hg]Axel Hernández [facility]11-20-2024 10:58-0500Body eggxzt049.5 cmMiclolis Hernández DO Work Phone: [facility] CenterGhhfjrbgpr38-51-2124 10:58-0500Body mass index (BMI) [Ratio]26.64 kg/a9Heqvfho Hernández DO Work Phone: [facility] CenterBqvqwnzacf32-23-0335 10:58-0500Body temperature 98.1 [degF]Axel Hernández DO Work Phone: [facility] CenterBfxsvqlsim54-19-6761 10:58-0500Body ihdfyq29.01 kgMiclolis Hernández DO Work Phone: [phone] CenterYgijfxwusj80-97-2499 14:47-0400Blood Pressure LocationDavie Acey [phone]-[facility] [place] 08-28-2024 14:47-0400Diastolic blood mm[Hg]Davie Vargas 346-8714Modemd-[facility]okBer[facility] [place] 08-28-2024 14:47-0400Heart rate65 /Brad Vargas [phone]-CpgyoBerger Hospital [facility] [place] 08-28-2024 14:47-0400Respiratory rate16 /Brad Vargas [phone]-LmjqnBerger [facility] [place] 08-28-2024 14:47-0400Systolic blood qieatcld963 mm[Hg]Davie Vargas 429-0882Ljtedo-LacvqBerger [facility] [place] 06-11-2024 12:48-0400Diastolic blood xrwxwhij74 mm[Hg]Kashif Barnett [facility]07-29-2024 12:48-0400Heart rate70 /minMisusan Layus [facility]07-29-2024 12:48-0400 Respiratory rate18 /minMikhail Julissanus [facility]07-29-2024 12:48-7220MpG0% (BldA) [Mass fraction]97 %Kashif Julissanus [facility]07-29-2024 12:48-0400 Systolic blood mm[Hg]Kashif Ericka [address] [place], [place] [address]082007-17-2024 13:31-0400Blood Pressure LocationThlynn Dubose [address] [place], [place] [address]082007-17-2024 13:31-0400 Diastolic blood povrqyyd22 mm[Hg]Dixon Dubose [facility]07-17-2024 13:31-0400Heart rate75 /minThomas Gracy [facility]07-17-2024 13:31-0400 Respiratory rate18 /minThomas Gracy [facility]07-17-2024 13:31-7040PdJ8% (BldA) [Mass fraction]95 %Dixon Dubose [facility]07-17-2024 13:31-0400 Systolic blood wykcvblt395 mm[Hg]Dixon Dubose [facility]06-07-2024 13:17-0400 Diastolic blood nlzkafin87 mm[Hg]Kashif Barnett [facility]06-07-2024 13:17-0400Heart rate62 /minMikhail Julissan [address] [place], [place] [address]2006-07-2024 13:17-5673ZeW4% (BldA) [Mass fraction]97 %Kashif Julissanus [facility]06-07-2024 13:17-0400 Systolic blood aajekioa661 mm[Hg]Kashif Barnett [facility]05-13-2024 14:30-0400 Diastolic blood amrhghkl10 mm[Hg]Axel Hernández [address] [place], [place] 2231405-13-2024 14:30-0400Heart rate50 /minMichael Hernández [address] [place], [place] 2231405-13-2024 14:30-0400 Respiratory rate16 /minMichael Hernández [address]05-13-2024 14:30-0279DyQ4% (BldA) [Mass fraction]98 %Axel Hernández [address] [place], [place] 2231405-13-2024 14:30-0400 Systolic blood ofjpsbfp292 mm[Hg]Axel Hernández [address]05-13-2024 13:31-0400Heart rate54 /minMichael Hernández [address] [place], [place] 2231405-13-2024 13:31-6537HiF9% (BldA) [Mass fraction]97 %Axel Hernández [address] [place], [place] 2231405-13-2024 13:31-0400 Respiratory rate16 /minMichael Hernández [address] [place], [place] 2231405-13-2024 13:30-0400Body ugaxmasgkli96.34 [degF]Axel Hernández [address] [place], [place] 2231405-13-2024 13:29-0400Blood Pressure LocationMichael Hernández [address] [place], [place] 2231405-13-2024 13:29-0400 Diastolic blood fidcrahz54 mm[Hg]Axel Hernández [address] [place], [place] 2231405-13-2024 13:29-0400Mean blood oblpxpha84 mm[Hg]Axel Hernández [address] [place], [place] 2641605-13-2024 13:29-0400 Systolic blood nwhquufj200 mm[Hg]Axel Hernández [address] [place], [place] 2369305-13-2024 13:20-0400Body bccoumiddgk27.52 [degF]Axel Hernández [address] [place], [place] 2369305-13-2024 13:20-0400 Diastolic blood mm[Hg]Axel Hernández [address] [place], [place] 2369305-13-2024 13:20-0400Heart rate54 /minMichael Hernández [address] [place], [place] 2369305-13-2024 13:20-0400Mean blood cnpnobnd07 mm[Hg]Axel eHrnández [address] [place], [place] 2369305-13-2024 13:20-0400 Respiratory rate15 /minMichael Hernández [address] [place], [place] 2369305-13-2024 13:20-6368GsI4% (BldA) [Mass fraction]97 %Axel Hernández [address] [place], [place] 2369305-13-2024 13:20-0400 Systolic blood mm[Hg]Axel Hernández [address] [place], [place] 2369305-13-2024 13:15-0400Mean blood saxytbrz08 mm[Hg]Axel Hernández [address] [place], [place] 2369305-13-2024 13:15-0400 Respiratory rate15 /minMichael Hernández [address] [place], [place] 2369305-13-2024 13:10-0400Mean blood lbvigytj29 mm[Hg]Axel Hernández [address] [place], [place] 2369305-13-2024 13:10-0400 Respiratory rate11 /minMichael Hernández [address] [place], [place] 2369305-13-2024 12:55-0400Body .52 [degF]Axel Hernández [address]05-13-2024 12:50-0400 Respiratory rate1 /minMichael Hernández [address]05-13-2024 09:36-0400Blood Pressure LocationMichael Hernández [address] [place], [place] 2369305-13-2024 09:36-0400Mean blood toil[place]173 mm[Hg]Axel Edgar [address]05-13-2024 09:34-0400Mean blood enccxcta43 mm[Hg]Axel Hernández [address] [place], [place] 2369305-13-2024 09:34-0400Body vwwumsxeiik25.34 [degF]Axel Edgar [address] [place], [place] 2369305-13-2024 09:34-0400Blood Pressure LocationMichael Edgar [address]05-13-2024 09:34-0400Heart rate50 /minMichael Hernández [address] [place], [place] 2369304-23-2024 08:11-0400Blood Pressure LocationMichael Edgar [address] [place], [place] 2369304-23-2024 08:11-0400 Diastolic blood iiqialuz95 mm[Hg]Axel Hernández [address]04-23-2024 08:11-0400Heart rate56 /minMichael Hernández [address] [place], [place] 2369304-23-2024 08:11-0400Mean blood bhrnikkw77 mm[Hg]Axel Hernández [address]04-23-2024 08:11-0400 Systolic blood yrzrmlna664 mm[Hg]Axel Hernández [address]04-23-2024 08:11-0400Heart rate57 /minMichael Hernández [address] [place], [place] 2231404-23-2024 08:11-5575IyJ9% (BldA) [Mass fraction]98 %Axel Hernández [address] [place], [place] 2231404-23-2024 08:10-0400Blood Pressure LocationAxel Hernández [address] [place], [place] 2231404-23-2024 08:10-0400Body daiysbbgbag96.06 [degF]Axel Hernández [address] [place], [place] 2231404-23-2024 08:10-0400 Diastolic blood otmasnua82 mm[Hg]Axel Edgar [address] [place], [place] 2231404-23-2024 08:10-0400Mean blood bztgpahl15 mm[Hg]Axel Edgar [address] [place], [place] 2231404-23-2024 08:10-0400 Systolic blood aikcunrk631 mm[Hg]Axel Hernández [address] [place], [place] 2231404-23-2024 08:10-0400 Respiratory rate18 /minAxel Hernández [address] [place], [place] 2231401-05-2024 11:00-0500Body unnkcz610.34 cmJada Rene Other [employer] CURRENT Other 89-487844-18533887-30-4597 11:00-0500Body mass index (BMI) [Ratio] 25.38 kg/g3TkqutiJada Rene Other [employer] CURRENT Other 01-05-2024 11:00-0500Body kqanxqyqtnl68.6 [degF]Jada Rene Other [employer] CURRENT Other 01-05-2024 11:00-0500Body qxelml93.56 kgJada Rene Other [employer] Other 01-05-2024 11:00-0500Diastolic blood uczkirje75 mm[Hg] Jada Edgard Other [employer] Other 01-05-2024 11:00-0500Respiratory rate18 /minGloria Rene Other [employer] Other 01-05-2024 11:00-6992LoX3% (BldA) [Mass fraction]99 % Jada Rene Other [employer] Other 01-05-2024 11:00-0500Systolic blood iqoyqjwa635 mm[Hg] Jada Edgard Other [employer] Other 22-65635260-08-7085 13:00-0500Body cuqcxp470.34 cmGlpaula Rene Other [employer] Other 12-20-2023 13:00-0500Body mass index (BMI) [Ratio]24.4 kg/c7Oyqfphpaula Rnee Other [employer] Other 12-20-2023 13:00-0500Body efdhhh83.38 kgGlpaula Rene Other [employer] Other 12-20-2023 13:00-0500Diastolic blood svdbwwuc67 mm[Hg] Jada Edgard Other [employer] Other 90-65368307-81-5961 13:00-0500Respiratory rate18 /minGloria Edgard Other [employer] Other 12-20-2023 13:00-3375LzG8% (BldA) [Mass fraction]97 % Jadayomi Rene Other [employer] Other 12-20-2023 13:00-0500Systolic blood mm[Hg] Jada Edgard Other [employer] Other 03-82943833-84-1565 10:00-0500Body fkptyt187.34 cmGlpaula Rene Other [employer] Other 34-39007361-62-4877 10:00-0500Body mass index (BMI) [Ratio] 25.81 kg/b3Rokpuspaula Rene Other [employer] Other 11-08-2023 10:00-0500Body jenlrj54.96 kgGlpaula Rene Other [employer] Other 11-08-2023 10:00-0500Diastolic blood dnnshczo67 mm[Hg] Jada Rene Other [employer] Other 11-08-2023 10:00-0500Respiratory rate18 /minGlpaula Rene Other [employer] Other 81-08022042-29-8080 10:00-2583MpT4% (BldA) [Mass fraction]98 % Jadamary Rene Other [employer] Other 11-08-2023 10:00-0500Systolic blood jmjuacha896 mm[Hg] Jada Edgard Other [employer] Other 08-03-2023 11:00-0400Body wvrcei614.34 cmJada Edgard Other [employer] Other 08-03-2023 11:00-0400Body mass index (BMI) [Ratio] 23.79 kg/f1Bbdjsi Edgard Other [employer] Other 08-03-2023 11:00-0400Body dorjtt22.38 kgJada Rene Other [employer] Other 08-03-2023 11:00-0400Diastolic blood uwpfescg83 mm[Hg] Jada Rene Other [employer] Other 08-03-2023 11:00-0400Respiratory rate18 /minGlpaula Rnee Other [employer] Other 08-03-2023 11:00-5317BgY8% (BldA) [Mass fraction]98 % Jada Rene Other [employer] Other 08-03-2023 11:00-0400Systolic blood enljawcc078 mm[Hg] Jada Rene Other [employer] Other Encounters Encounter DateEncounter TypeCare ProviderFacilityStart: 46-33-9688dduruvwgqs YANIQUE A LEHMANNFacility:[facility] BellevueStart: 84-37-2890ntmygmycqzUzfx L Jules [facility]Start: 96-06-8862ezwbjkazktUauv L SchwabFacility:[facility] BellevueStart: 08-26-2025 End: 24-36-0955pqemqvumefWQGJAC A LEHMANNFacility:MCStart: 08-21-2025 ambulatorySHELLY A LEHMANNFacility:CD:[id number]: 06-89-1836qxjjainzhx YANIQUE A LEHMANNFacility:[facility] BellevueStart: 08-05-2025 End: 52-46-2984czlqtsmgmvRWUQKB A LEHMANNFacility:CD:[id number]: 07-31-2025 ambulatoryGregory P COOKFacility:EU [place]walkStart: 07-25-2025 End: 27-20-8342pgarcnbcnoRHIOJG A LEHMANNFacility:[facility] BellevueStart: 41-89-6750chzvdmnkhbTDPOHA LEHMANNFacility:EU [place]kyStart: 07-24-2025 End: 86-27-0504dvucdelyeqCKLBTM A LEHMANNFacility:CD:[id number]: 07-22-2025 End: 47-04-8761Nphjmtgf Result EncounterPaul C Laffay DO Work Phone: noms External Department UnsolicitedStart: 07-22-2025 End: 10-57-8642Ljafzszh Result EncounterPaul C Laffay DO Work Phone: noms External Department UnsolicitedStart: 07-21-2025 End: 39-08-7806Tdgpvkgu Result EncounterPaul C Laffay DO Work Phone: noms External Department UnsolicitedStart: 07-21-2025 End: 48-00-0198Vvndvxcb Result EncounterPaul C Laffay DO Work Phone: noms External Department UnsolicitedStart: 07-19-2025 Non-patient / Non-visitMichael Arline Dee MD-[facility] Dis Work Phone: Start: 07-19-2025 End: 88-23-0021Zawhjchflq and management of inpatientMohamad Billy [facility]: 07-11-2025 End: 55-35-3231uzzgtqfwjrDTYBTC A LEHMANNFacility:FTMCStart: 07-08-2025 End: 33-45-3369xrsgfgfrjkFxzj L SchwabFacility:[facility] BellevueStart: 07-05-2025 End: 92-32-3658fyhtcuwiimXSTAZO A LEHMANNFacility:CD:[id number]: 07-04-2025 End: 16-24-9571yrwlcvwkrjFLLICW A LEHMANNFacility:[facility] BellevueStart: 17-27-2509drdgjurugjIWARJN A LEHMANNFacility:[facility] BellevueStart: 06-17-2025 End: 52-39-4326Pnqxqaxflu and management of inpatientEhad Tere COHN Work Phone: [facility] GEN 8 AcuteComment on above: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 ([facility]) (Primary Dx)Start: 06-14-2025 End: 20-19-9175vqsilmpcxyGRVTGN A LEHMANNFacility:CD:[id number]: 06-13-2025 End: 47-72-4812jfvchwpgtlBCKRYY A LEHMANNFacility:[facility] [place]vueStart: 06-07-2025 End: 26-18-5316yffdwlgbnyHQRTVY A LEHMANNFacility:CD:[id number]: 06-07-2025 End: 59-55-4959qxfjhxulepSKUQTJ A LEHMANNFacility:[facility] [place]vueStart: 06-02-2025 End: 23-95-5073Wkvwzckrhq and management of inpatientMichael Serina Monet DO Work Phone: stvZ Car 3- MICUComment on above:Hyponatremia (Primary Dx)Start: 05-20-2025 End: 57-67-6526Dhr Drop offSHELLY A REYES [facility] Start: 05-20-2025 End: 87-69-4509tuzwqruyteTUQPOW A LEHMANNFacility:FTMCStart: 05-09-2025 End: 12-54-8230eltyvisthdMgcjon E. RossFacility:[facility] FM BellevueStart: 02-05-2025 End: 90-51-4531Kqc Drop offScarlton Garcia [facility] Start: 02-05-2025 End: 21-97-0218iwfwpbdhukLusnhr E. RossFacility:FTMCStart: 01-24-2025 End: 44-15-2375Lbb Drop offScarlton Garcia [facility] Start: 01-24-2025 End: 56-28-7275gnpmrrolytZohgis E. RossFacility:FTMCStart: 01-09-2025 End: 97-40-4312Mxb Drop offSgreerricci PatsyShanna Adam [facility] Start: 01-09-2025 End: 04-64-6199zcpphffvmyFRMarline GarciaFacility:FTMCStart: 12-31-2024 End: 66-23-2771Csr Drop offSgreerricci PatsyShanna Garcia [facility] Start: 12-31-2024 End: 24-93-3310cuvabvjasyWP Samuel E. RossFacility:[facility] BellevueStart: 12-24-2024 End: 08-49-9669zrlsesyfaaWbemtp E. RossFacility:[facility] FM BellevueStart: 12-17-2024 End: 47-20-0934Eaw Drop offScarlton Garcia [facility] Start: 12-17-2024 End: 21-39-5841lhhhmazzocFgnyok E. RossFacility:FTMCStart: 12-17-2024 End: 13-66-0443kzoekgtweqRdjbac E. RossFacility:CD:[id number]: 11-28-2024 End: 15-25-4097Ftnwrw flowsAiram Chow B[employer] PRESS OPERATOR Work Phone: NOBV SWS ORTHOStart: 11-28-2024 End: 62-45-1661Ixxfjs flowsAiram Chow B[employer] PRESS OPERATOR Work Phone: NOKR SWS ORTHOStart: 11-28-2024 End: 61-24-7812Uwsdfz follow up visit related to original Sarath Chow B[employer] PRESS OPERATOR Work Phone: NOPZ SWS ORTHOComment on above:Status post carpal tunnel release (Primary Dx)Start: 11-28-2024 End: 85-85-7852qprxhdliabCBCUA T Obed AvailableStart: 11-26-2024 End: 92-87-8623Arvruc Mook Escamilla MD Work Phone: [facility] ENT NORKAYLEIGHKStart: 11-26-2024 End: 70-57-2223Sjdadd flowsGarrison Escamilla MD Work Phone: [facility] E[facility] NORKAYLEIGHKStart: 11-26-2024 End: 58-61-1799Ktcvhyw encounter procedureEmiliano Escamilla MD Work Phone: [facility] ENT NORWALKComment on above:Foreign body of right ear, initial encounter (Primary Dx)Start: 11-26-2024 End: 90-66-6598hxrgdshzyoZZCKWS H TIMMISNot AvailableStart: 11-19-2024 End: 21-88-9820Hiufxeuop Result EncounterMichael T Hernández DO Work Phone: [facility] External Department UnsolicitedStart: 11-19-2024 End: 39-17-7647Scajherch Result EncounterMichael T Hernández DO Work Phone: [facility] External Department UnsolicitedStart: 11-19-2024 End: 79-39-1209Kiirdfelu to same day surgery centerMicvadiml T Hernández [facility] Start: 11-19-2024 End: 64-15-6161qlkbaerayjHykleom T PowersFacility:FTMCStart: 11-13-2024 ambulatorySamulaly Garner. RossFacility:[facility] BellevueStart: 11-12-2024 End: 73-36-1681Fzv Drop offSamricci Garcia [facility] Start: 11-12-2024 End: 44-71-1844dcbpojmbweBwbmzu Patsy. AdamFacility:FTMCStart: 11-01-2024 End: 30-75-4634zpuqjaxxutXujeye Patsy. RossFacility:[facility] [place]vueStart: 10-30-2024 End: 71-48-4815jhiksxqzbqTmiuuwj T PowersFacility:FTMCStart: 10-30-2024 End: 62-66-7328Dygpahp encounter procedureMichael T Hernández [facility] Start: 10-03-2024 End: 64-35-8625Miapbl flowsheetMichael T Hernández DO Work Phone: [facility] SWS ORTHOAOStart: 10-03-2024 End: 25-73-6683Ouiulb flowsheetMichael T Hernández DO Work Phone: [facility] SWS ORTHOAOStart: 10-03-2024 End: 00-05-4745Dogrkil encounter procedureMichael T Hernández DO Work Phone: [phone] SWS ORTHOAOComment on above:Pre-op testing (Primary Dx); Right hand pain; Arm weaknessStart: 10-03-2024 End: 10-25-6113Ukpagel encounter statusMichael T Hernández DO Work Phone: [facility] HealthcareStart: 10-03-2024 End: 67-29-1839kgpjkwunvqWFAYRTA T POWERSNot AvailableStart: 09-28-2024 End: 25-71-8484Ocxstm Josie Farrell MD Work Phone: [facility] NEUROLOGYStart: 09-28-2024 End: 26-45-2598Oxbtoq flowsheetShala Farrell MD Work Phone: [facility] NEUROLOGYStart: 09-28-2024 End: 67-48-0428Ggzjlvt encounter procedureShala Farrell MD Work Phone: [facility] NEUR BComment on above:Pain in both upper extremities (Primary Dx); Carpal tunnel syndrome, bilateralStart: 09-28-2024 End: 89-06-6653avudxufoozZEYD D BEJNot AvailableStart: 09-10-2024 End: 28-05-9662avzucxfjwuWuoqti E. RossFacility:[facility] BellevueStart: 08-28-2024 End: 73-86-9758aywqrsynrhAkit E. MouranyFacility:[facility] Hospitalrt: 08-28-2024 End: 10-37-0440Shxyqmf encounter procedureDavie Vargas [phone]-[facility]fl[facility]zBer[facility] [place] Start: 08-20-2024 End: 53-01-3744Nfdrdjcbw encounterShala Farrell MD Work Phone: [facility] NEURO 111Start: 08-13-2024 End: 69-45-9358mtdxsdhtbnRbshpfl Vytautas Giedraitis MDFacility:PM Jackie Start: 08-07-2024 End: 27-85-4958hmkmpqphktSeedav E. RossFacility:FT FM BellevueStart: 07-31-2024 End: 15-99-5398xcbvptzlmnYcgrrx E. RossFacility:FT FM BellevueStart: 07-24-2024 End: 17-29-5987hwswbkzworOwbfjq E. RossFacility:FT FM BellevueStart: 07-23-2024 ambulatorySamuel E. RossFacility: Nathanieltart: 46-45-8324oyetxrevqgBxchylg PowersFacility: SophiekStart: 07-03-2024 End: 96-52-2143fsphfevqzaWcroad E. RossFacility:FT BellevueStart: 06-20-2024 End: 67-73-6708claycegfpdVBTJHWX T POWERSNot AvailableStart: 06-11-2024 End: 50-29-7732yhivdbtptiDJEF NONEFacility:FTMCStart: 06-11-2024 End: 96-04-8152Wqwfogp encounter procedureMisusan Lay [facility] Start: 05-30-2024 End: 94-24-2608zlckcuqstuFgnmcb E. RossFacility:FTMCStart: 05-30-2024 End: 23-70-5264Bljwzzh encounter procedureDixon Dubose [facility] Start: 05-21-2024 End: 73-54-0174Hsaypas encounter procedureMisusan Craig Julissaromina [facility] Start: 05-01-2024 End: 57-12-2491Axlcpog encounter procedureMisusan Hazel Costan [facility] Start: 05-01-2024 End: 51-58-1543Jzu Drop Heather Garcia [facility] Start: 04-20-2024 End: 34-02-2568Qtjrwap encounter procedureMisusan D Julissanus [facility] Start: 04-04-2024 End: 78-05-8890nfznryuzunPOMIAHS T POWERSNot AvailableStart: 03-26-2024 End: 34-56-0466Kadkxvmiv to same day surgery centerMichael T Hernández [facility] Start: 03-06-2024 End: 81-72-6415Ihmvjwz encounter procedureMichael T Hernández [facility] Start: 02-15-2024 End: 09-26-8596osxeqzsborAKBRZUZ T POWERSNot AvailableStart: 02-15-2024 End: 76-66-8681uenxkndfrlTUHARTM T POWERSNot AvailableStart: 12-06-2023 End: 75-88-0706zkjjbrgzyuEgokjt Edgard Other [employer] Other Start: 68-88-5589Fcnwooiyv encounterGloria [facility] HospitalyStart: 12-02-2023 End: 61-47-3974tirmuevmtoIwgqrw Edgard Other [employer] Other Start: 19-51-3065Thkdvlhwj encounterGloria [facility] HospitalyStart: 12-01-2023 End: 58-88-6180Xbg Drop Heather PatsyShanna Adam [facility] Start: 11-18-2023 End: 62-49-4422pqimhgccxhKdaapo Edgard Other [employer] Other Start: 36-81-0910Jrrgfr outpatient visit 25 minutes Jadayomi [facility]eneLaw[facility] Hospital SandminneapolisyStart: 11-02-2023 End: 87-53-0735fovsalnjcrIklghs Edgard Other [employer] Other Start: 56-52-5446Qcncbs outpatient visit 25 minutes Jada [facility] SandminneapolisyStart: 42-55-5653Xsmsazdld encounter Jada EdgardDIAMOND [facility]IL[facility] Family Medicine [place]yStart: 10-28-2023 End: 86-61-6115xatyqkocosDilsqp Rene Other [employer] Other Start: 67-16-1482Ygpfzblrd encounterGloria JohnsDIAMOND CHILDREN'S [facility] Family [facility] SandminneapolisyStart: 09-30-2023 End: 91-95-5418Vclsv KhurramSujose armando Riggins RNNURSE ON CALLComment on above: Refill RequestStart: 28-22-7359Lirichtbz encounterGloria JohnsDIAMOND CHILDREN'[facility] Family Medicine [place]Start: 09-21-2023 End: 16-86-8908yukvexeqybTqtuae Rene Other [employer] Other Start: 08-23-5325Gbkexo outpatient visit 25 minutes Jada JohnsDIAMOND CHIL[facility] Family Medicine [place]yStart: 08-29-2023 End: 92-88-7829nzqlkadcijObmjlq Rene Other [employer] Other Start: 17-07-7769Oaoweifil encounterGloria JohnsDIAMOND CHILDREN'[facility] Family [facility] [place]yStart: 08-26-2023 End: 81-61-8002usaodhsfcpBhjtbu Rene Other [employer] Other Start: 36-41-9314Zyopuezit encounterGloria JohnsDIAMOND CHIL[facility] Family [facility] [place]yStart: 08-08-2023 End: 57-94-4177cwxcfjmprtEtmcxj Rene Other [employer] Other Start: 03-33-9014Gsfjxbypi encounterGloria JohnsDIAMOND CHIL[facility] Family [facility] [place]Start: 07-27-2023 End: 87-57-5664evwjlmfjwvVtwivo Rene Other [employer] Other Start: 62-19-5614Pijmbvjwy encounterGloria EdgardLawrence General Hospital FawnminneapolisyStart: 06-16-2023 End: 46-03-4665ksaegatenaRimvao Johns Other Darby CURRENT Other Start: 26-30-4816Xnomnd outpatient new 45 minutes JadaBapt[facility] SanduskyStart: 24-54-1209Monnllwrx encounter [facility]adaM[facility] Procedures DateProcedureProcedure DetailPerforming ClinicianStart: 25-52-3989Worjccfb blood count with white cell differential, automatedPaul C Lafconsuelo DO Work Phone: Start: 93-03-4875B-reactive proteinPaul C Lafconsuelo DO Work Phone: Start: 59-39-5684Vjydpvjozya Margarito Baez MD Work Phone: Start: 56-82-2429Xffor metabolic panel calcium total Rocio Davis MD Work Phone: Start: 27-28-6290Mvelnxyviht Margarito Baez MD Work Phone: Start: 85-68-3117Luo routine ecg w/least 12 lds trcg only w/o i&Yovany Crisostomo MD Work Phone: Start: 73-74-5938Fzskndunfxv Latisha Maria MD Work Phone: Start: 91-54-4679PIUVO TUBESErika Crisostomo MD Work Phone: Start: 54-44-8147YZECL TUBES LAVENDER TOPErika Crisostomo MD Work Phone: Start: 06-22-2025 End: 50-70-3711Pjemf metabolic panel calcium totalRocio Davis MD Work Phone: Start: 03-56-4119Ksknkfkhsia Latisha Maria MD Work Phone: [phone]: 09-73-8944L-reactive proteinErika Crisostomo MD Work Phone: [phone]: 99-83-5164Pkiebccalwd panelSyehazel Maria MD Work Phone: [phone]: 49-60-3911Na head/brain w/o contrast material Erika Crisostomo MD Work Phone: [phone]: 00-96-4801Axgpg gases any combination ph pco2 po2 co2 yrh0YltusxErika Crissotomo MD Work Phone: [phone]: 58-08-0312Mqigwuybcch panelTasohail Davis MD Work Phone: [phone]: 31-86-0768Vmilr metabolic panel calcium total Jose Miguel Suzette Maria MD Work Phone: [phone]: 74-34-1438JEWIT TUBESEhad Tere COHN Work Phone: [phone]: 74-80-9225FBWPI TUBES LAVENDER TOPMirian Carranza MD Work Phone: [phone]: 66-14-3270AEEPOVLIGZY IN PROCESS EEG TESTING Jose Miguel Maria MD Work Phone: [phone]: 20-45-2007Qcwfgvzzhfs panelSalexa Maria MD Work Phone: [phone]: 51-86-2822Gprrn of osmolality Joshua Zuniga MD Work Phone: [phone]: 52-88-7509Bmmzidkyvue panelSalexa Maria MD Work Phone: [phone]: 57-85-3657Tbhmghvxkra panelTasohail Davis MD Work Phone: Start: 15-28-8603UUC VIDEO MONITORINGTasohail Davis MD Work Phone: [phone]: 64-54-9529Mdmwr metabolic panel calcium total Jose Miguel Maria MD Work Phone: [phone]: 99-13-8604Dfgdhmqhtcn Latisha Maria MD Work Phone: [phone]: 68-58-0648Miwehop assayMirian Carranza MD Work Phone: [phone]: 59-28-8133Pqkt tthrc r-t 2d w/wom-mode compl spec&colr dTviolet Davis MD Work Phone: [phone]: 54-74-2739Rznymd scan extracranial art compl bi studyRocio Davis MD Work Phone: [phone]: 90-37-4883Qsghf metabolic panel calcium total Rocio Davis MD Work Phone: [phone]: 83-85-4385Uxkmgzy assayMirian Carranza MD Work Phone: [phone]: 65-15-9275VSIYbvyjaw Tariq MD Work Phone: [phone]: 81-07-4594DGFHHFQ GLUCOSEEhad Tere COHN Work Phone: [phone]: 07-28-9313Shthq of magnesiumTasohail Davis MD Work Phone: [phone]: 89-37-0464IHKDP TUBESEhad Tere COHN Work Phone: [phone]: 47-59-6543VDLXC TUBES PST TOPMirian Carranza MD Work Phone: [phone]: 27-02-5415Kpita of osmolality bloodRocio Davis MD Work Phone: [phone]: 84-28-0694Nqd brain brain stem w/o contrast materialRocio Davis MD Work Phone: [phone]: 72-02-4329Usnlb metabolic panel calcium total Rocio Davis MD Work Phone: [phone]: 79-80-5787Miogp panelRocio Davis MD Work Phone: [phone]: 57-06-0533Olnompdicxqkx metabolic panelRocio Davis MD Work Phone: [phone]: 81-33-3813TYMYWHA GLUCOSEMirian Carranza MD Work Phone: Start: 34-45-9662Jsshfzbw perfusion analys ct w/blood flow&volumeKhaled Shlomo COHN Work Phone: Start: 63-63-1450Swbreru blood reagent stripSaz Ren MD Work Phone: Start: 71-71-9028Kwophhxxycc panelDeann Carter MD Work Phone: Start: 36-89-8666Agkjcsq blood reagent stripSaz Ren MD Work Phone: Start: 34-53-6605Qltsb metabolic panel calcium total [facility] Work Phone: Start: 7 End: 01-31-6851Chghgtbcusp panelDaUNC Health Johnston Work Phone: Start: 18-68-2423Idcilfw blood reagent stripSaz Ren MD Work Phone: Start: 39-52-1709Yxvqovgckcv panelDaUNC Health Johnston Work Phone: Start: 18-28-2053Nlcestw blood reagent stripSaz Ren MD Work Phone: Start: 42-38-6047SOXAG METABOLIC PANEL W/ REFLEX TO MG FOR LOW Nimeshl Latisha COHN Work Phone: Start: 81-59-6774Wcjcmnm blood reagent stripSaz Ren MD Work Phone: Start: 34-30-1138Jcextvx blood reagent stripSaz Ren MD Work Phone: Start: 31-16-5084RDATN METABOLIC PANEL W/ REFLEX TO MG FOR LOW Nimeshl Latisha COHN Work Phone: Start: 91-77-0559Fkwsuoc blood reagent stripSaz Ren MD Work Phone: Start: 31-52-2642MNKYC METABOLIC PANEL W/ REFLEX TO MG FOR LOW KRaquintinl Latisha COHN Work Phone: Start: 84-22-4505Rw head/brain w/o contrast material Bisi Vaughn MD Work Phone: Start: 88-39-5143XJJWY METABOLIC PANEL W/ REFLEX TO MG FOR LOW KPriprateek Vaughn MD Work Phone: Start: 84-01-1055Rygmmljg totalPriprateek Vaughn MD Work Phone: Start: 60-45-0707ATUDY METABOLIC PANEL W/ REFLEX TO MG FOR LOW KRahil Latisha COHN Work Phone: Start: 54-10-7663KMAAOLWX BLOOD GAS, POCDaUNC Health Johnston Work Phone: Start: 69-40-1041YNATREW, IONIC (POC)Beto [place] DO Work Phone: Start: 49-26-8315LFMGYXNSGH W/GFR POINT OF CARECommonwealth Regional Specialty Hospital DO Work Phone: Start: 93-94-8245UTWFKKMMQZNG PLUSDaniCorewell Health [facility] DO Work Phone: Start: 45-87-2915Pxwg bld gluc mntr dev cleared fda spec home useDaniCorewell Health William [facility] DO Work Phone: Start: 24-14-9167DMQBRO ACID,POINT OF CAREDaNovant Health Rehabilitation Hospital DO Work Phone: Start: 58-31-1759EVSYM METABOLIC PANEL W/ REFLEX TO MG FOR LOW KRaquintinl Latisha COHN Work Phone: Start: 88-97-4831Zhjfhyo blood reagent stripDaUNC Health Johnston Work Phone: Start: 54-14-0383Yjpdtjjqaty panelDaNovant Health Rehabilitation Hospital DO Work Phone: Start: 11-37-3420PWQBTGXA SPECIMENDaniCorewell Health [facility] DO Work Phone: Start: 62-47-2416Ydprcnt blood reagent stripDaNovant Health Rehabilitation Hospital DO Work Phone: Start: 78-82-9161Jduefrc blood reagent stripDaniCorewell Health [facility] DO Work Phone: Start: 06-03-2025 End: 21-67-1320Wikwniykkta panelDaNovant Health Rehabilitation Hospital DO Work Phone: Start: 11-46-4123KDGUL METABOLIC PANEL W/ REFLEX TO MG FOR LOW KAimee Miester SOLAR PHOTOVOLTAIC SYSTEMS ENGINEER - BARK PRESS OPERATOR Work Phone: Start: 06-03-2025 End: 90-81-5202Njwjlquiqvg timeAimee Miester SOLAR PHOTOVOLTAIC SYSTEMS ENGINEER - BARK PRESS OPERATOR Work Phone: Start: 14-76-3534Xmamrju blood reagent stripStanley J Orlop DO Work Phone: Start: 91-64-9912Whaexgs blood reagent stripStanley J Orlop DO Work Phone: Start: 25-25-6205VYWFE METABOLIC PANEL W/ REFLEX TO MG FOR LOW Hattie Petersee SOLAR PHOTOVOLTAIC SYSTEMS ENGINEER - CAUSTIC PREPARER Work Phone: Start: 06-02-2025 End: 28-05-2725Ruakwmhfbvd timeJanjanice Dodd Calfee SOLAR PHOTOVOLTAIC SYSTEMS ENGINEER - CAUSTIC PREPARER Work Phone: Start: 43-14-8454JOPI CAPILLARY GLUCOSE POCMichael T Hernández DO Work Phone: Start: 40-94-5747Odjgpqjlazyqp of median nerveMichael Hernández Start: 83-04-4460Gzhzhmueppzwd of median nerveMichael Hernández Decompression of median nerveMichael Hernández History of decompression of median nerveStatus post carpal tunnel releaseGrant T Donna BARK PRESS OPERATOR Work Phone: Release of trigger fingerMichael Hernández Surgery (qualifier value)Edwin Garcia Plan of Treatment DateCare ActivityDetailAuthorStart: 28-98-6483IHR test (Diabetes, CKD 3-4, OR last GFR 15-59)GFR test (Diabetes, CKD 3-4, OR last GFR 15-59)Bon [facility] ColumbusStart: 23-80-3632WbbuojvrvThe Surgical Hospital at Southwoodstart: 07-22-2025 Referral to urologistThe [facility] Hospital [facility] Southwoodstart: 07-20-2025 Administration of prophylactic treatmentThe [facility] Hospital at Southwoodstart: 06-96-7448Snclupbb to general surgeonThe [facility] Hospital at Southwoodstart: 30-22-4496Xtyiigjz admissionThe [facility] Hospital [facility] Southwoodstart: 07-19-2025 Referral to infectious diseases physicianThe [facility] Hospital [facility] Southwoodstart: 88-32-0976DxgiyajnaThe [facility] Hospital at Southwoodstart: 30-38-5371Uxdhtoumy vaccinationInfluenza Vaccine (#1)[facility] HealthcareStart: 34-86-7511Olgncetle vaccinationFlu vaccine (#1)[facility] HealthcareStart: 06-12-2025 End: 86-32-6488Rvhbz metabolic 2000 panel - Serum or PlasmaBasic Metabolic Panel Lab Routine Hyponatremia Expected: 06/12/2025, Expires: 06/05/2026[facility] HospitalComment on above:Expected: 06/12/2025, Expires: 06/05/2026Start: 06-45-3555GZKPG-19 Vaccine ( season)COVID-19 Vaccine ( season)[facility] HealthcareStart: 12-26-2024 End: 19-24-0881Kjhdmuz encounter wjwdyfaop31/12/2025 1:45 PM EST Office Visit [facility] [address] [place] [address] Jose L Chow, BARK PRESS OPERATOR [address] [place] [address] [facility]THOStart: 11-28-2024 End: 35-25-4963Vbgilcs encounter procedureNOMS FREE HOSPITAL FOR WOMEN ORTHOComment on above:Arrived Start: 11-26-2024 End: 71-47-5413Akpasrt encounter xduqcieja44/ 10:30 AM EST Office Visit [facility] [address] [facility] [place] [address] Emiliano Escamilla MD [address] [facility] [address] [place] [address] ArrivedNOMS ENT TIMKAYLEIGHomment on above:ArrivedStart: 91-78-3078Lorduk Wellness Visit (Medicare Advantage)Annual Wellness Visit (Medicare Advantage)[facility]Star [facility] CenterStart: 10-03-2024 End: 08-18-4534RUU 12 leadECG 12 lead ECG Routine Pre-op testing Expected: 10/03/2024 (Approximate), Expires: 10/03/2025[facility] Work Phone: Comment on above:Expected: 10/03/2024 (Approximate), Expires: 10/03/2025Start: 10-03-2024 End: 28-74-8579Xilmmwc encounter zfkxgsyow26/20/2024 10:45 AM EST Office Visit [facility] [address] [facility] [address] [place] [address] Axel Hernández DO [address] [place] [address] Right hand pain (Primary Dx); Arm weaknessNOMS SWS ORTHOAOComment on above:Right hand pain (Primary Dx); Arm weaknessStart: 52-63-8838Llkiemzes vaccinationInfluenza Vaccine (#1)[facility] HealthcareStart: 85-61-5051Fgpqhhfmy vaccinationInfluenza Vaccine (#1)[facility] Hospitaltart: 74-66-5622Fcxsdpo Directive DiscussionAdvance Directive Discussion [facility] Hospitaltart: 42-81-5799Lsjoefjrvb AssessmentDepression Assessment [facility] Hospitaltart: 76-30-3870Hpgaxzowzng Syncytial Virus (RSV) or age 60 yrs+ (1 - 1-dose 75+ series)Respiratory Syncytial Virus (RSV) or age 60 yrs+ (1 - 1-dose 75+ series)[facility]art: 03-31-2016 Pneumococcal Vaccine: 65+ (2 - PPSV23 or PCV20)Pneumococcal Vaccine: 65+ (2 - PPSV23 or PCV20)[facility] Hospitaltart: 33-82-2776Sudfxobpgjpo Vaccine: 65+ Years (2 of 2 - PPSV23 or PCV20)Pneumococcal Vaccine: 65+ Years (2 of 2 - PPSV23 or PCV20)[facility] CenterStart: 86-90-9878Vvtphnbeu B surface antibody levelLDL CholesterolTriHealth McCullough-Hyde Memorial Hospitaltart: 22-80-8206Clvzljoatw A1c/Hemoglobin.total in EqdccNaP9TTedvmfysw ClinicStart: comp foot exam completedDiabetic Foot ExamTriHealth McCullough-Hy[facility] Memorial Hospitaltart: 31-62-0469Ehhoyoazs B screeningUrine Albumin:Creatinine RatioTriHealth McCullough-Hyde Memorial Hospitaltart: 64-27-3028Ruyyr microalbumin profileDTaP,Tdap,Td Vaccine (1 - Tdap)[facility] Hospitaltart: 13-63-8514Fftpvyrm vaccine (2 of 3)Shingles vaccine (2 of 3)[facility] Hospitalart: 86-73-4510Gonfthrt Vaccine (2 of 3)Shingrix Vaccine (2 of 3)[facility] Start: 65-57-2354Wyifnyuup C antibody, confirmatory testDilated Retinal Exam [facility] Hospitaltart: 80-04-3089RDV Vaccine (1 - 1-dose 60+ series)RSV Vaccine (1 - 1-dose 60+ series)[facility] Hospitaltart: 01-67-1287BAkH/Tdap/Td vaccine (1 - Tdap)DTaP/Tdap/Td vaccine (1 - Tdap)[facility] Hospitalart: 1958 Urine screening for proteinDiabetic Alb to Cr ratio (uACR) testBon [facility]: 33-36-8713Rylcwkjlon ScreenDepression ScreenBon [facility]: 78-11-1865Vjgfb panelLipidsRiverside [facility]: 66-21-9556Iyfwd-19 Vaccine (#1)Covid-19 Vaccine (#1)[facility] End: 88-12-6866Nftcrqcg Routine EEGBaseline Routine EEG Neurology Routine Once for 1 Occurrences starting 06/19/2025 until 06/19/2025[facility] Comment on above:Once for 1 Occurrences starting 06/19/2025 until 06/19/2025 End: 37-46-4571Ewxpc metabolic 2000 panel - Serum or PlasmaBasic Metabolic Panel Lab Routine Tomorrow AM for 10 Occurrences starting 06/04/2025 until , 1 [facility] CenterComment on above:Tomorrow AM for 10 Occurrences starting 06/04/2025 until 06/13/2025, 1 completedBacommonwealth regional specialty hospital metabolic 2000 panel - Serum or PlasmaBasic Metabolic Panel Lab Routine Lab max of 3 days, Daily, for lab use only until discontinued starting 06/18/2025, 6 completed [facility] HospitalComment on above:Lab max of 3 days, Daily, for lab use only until discontinued starting 06/18/2025, 6 completed End: 53-21-0041Kuekr count hemoglobinHemoglobin Lab Routine Every Other Day for 3 Days starting 06/23/2025 until 06/25/2025[facility] HospitalComment on above:Every Other Day for 3 Days starting 06/23/2025 until 06/25/2025BC W Auto Differential panel - BloodCBC auto differential Lab Routine Lab max of 3 days, Daily, for lab use only until discontinued starting 06/17/2025, 7 completed [facility] HospitalComment on above:Lab max of 3 days, Daily, for lab use only until discontinued starting 06/17/2025, 7 completedContinuous pulse oximetryPulse oximetry, continuous Respiratory Care Routine Every 4hr until discontinued starting 06/02/2025[facility] HospitalComment on above:Every 4hr until discontinued starting 06/02/2025 End: 18-05-5236Tfwqhbwtumj PanelElectrolyte Panel Lab Routine Every 8 Hours (Lab) for 3 Days starting 06/05/2025 until 06/08/2025, 1 [facility] Work Phone: Comment on above:Every 8 Hours (Lab) for 3 Days starting 06/05/2025 until 06/08/2025, 1 completed End: 74-92-9340Uodbbmtakrs panelElectrolyte panel Lab Routine Lab max of 3 days, Every 8hr, lab use only for 3 Days starting 06/22/2025 until 06/25/2025, 2 completedThink[employer]id[employer] Work Phone: Comment on above:Lab max of 3 days, Every 8hr, lab use only for 3 Days starting 06/22/2025 until 06/25/2025, 2 completedGlucose [Mass/volume] in Serum or PlasmaBon [facility] ColumbusComment on above:As Needed until discontinued starting X Daily (AC & HS) until discontinued starting 06/02/2025 End: 84-05-5092Ttcswl monitor studyEEG Video Monitoring Daily Neurology Routine Lab max of 3 days, Daily, for lab use only for 5 Occurrences starting 06/19/2025 until 06/23/2025, 1 completedNortheastern Vermont Regional HospitalCoreValue Software SystemComment on above:Lab max of 3 days, Daily, for lab use only for 5 Occurrences starting 06/19/2025 until 06/23/2025, 1 completedHolter monitor studyEEG Video Monitoring Daily Neurology Routine 06/20/2025 6:06 PM [facility] SystemMagnesium [Mass/volume] in Serum or PlasmaMagnesium Lab Routine Lab max of 3 days, Daily, for lab use only until discontinued starting 06/23/2025, 1 completedNortheastern Vermont Regional HospitalCoreValue Software System Comment on above:Lab max of 3 days, Daily, for lab use only until discontinued starting 06/23/2025, 1 completed End: 27-06-8837Vpknindem [Mass/volume] in Serum or PlasmaMagnesium Lab Routine Once for 1 Occurrences starting 06/23/2025 until 06/23/2025[employer] Work Phone: Comment on above:Once for 1 Occurrences starting 06/23/2025 until 06/23/2025Nasal Cannula OxygenNasal Cannula Oxygen Respiratory Care Routine Daily until discontinued starting 06/05/2025on [facility] ColumbusComment on above:Daily until discontinued starting 06/05/2025Oxygen Therapy - Maintain SpO2: 90%; *WIND PROJECT MANAGER Guidelines for O2: Yes; Document: \phsi.[email or web address]\epic\EPIC_Reference\Orders\Respiratory Care Guidelines\CPG Oxygen 2022.pdfOxygen Therapy - Maintain SpO2: 90%; *WIND PROJECT MANAGER Guidelines for O2: Yes; Document: \[email or web address]\epic\EPIC_Reference\Orders\Respiratory Care Guidelines\CPG Oxygen 2022.pdf Respiratory Care Routine AsNeeded until discontinued starting 06/17/2025[facility] HospitalRiverOne Work Phone: Comment on above:As Needed until discontinued starting 06/17/2025Oxygen therapy [Minimum Data Set]Initiate Oxygen Therapy Protocol Respiratory Care Routine As Needed until discontinued starting 06/02/2025on [place] Work Phone: comment on above:As Needed until discontinued starting 06/02/2025Patient EducationLow-fiber diet Know your [facility] Work Phone: Patient [facility] Work Phone: End: 53-02-8242Oiacscaxj [#/volume] in BloodPlatelet count Lab Routine Every Third Day for 3 Days starting 06/24/2025 until 06/24/2025[facility] HospitalCoreValue Software [facility] Comment on above:Every Third Day for 3 Days starting 06/24/2025 until 06/24/2025 Protime & INRProtime & INR Lab Routine Daily until discontinued starting 06/19/2025, 4 completedNortheastern Vermont Regional HospitalBeijing Eedoo TechnologyComment on above:Daily until discontinued starting 06/19/2025, 4 completed End: 96-60-2797Slvrtek-INRProtime-INR Lab Routine Daily for 8 Days starting 06/05/2025 until 06/12/2025, 1 completedBon [facility] Medical CenterLending WorksComment on above:Daily for 8 Days starting 06/05/2025 until 06/12/2025, 1 completed End: 13-27-8322Ttoewuwuawv care evaluation onlyRespiratory care evaluation only Respiratory Care Routine One Time for 1 Occurrences starting 06/02/2025 until 5B [facility]coCom[facility] on above:One Time for 1 Occurrences starting 06/02/2025 until 06/02/20[facility] Immun[facility] Immunization DateImmunizationNotesCare EpwocirnYiajxoij20-71-2331jjazziqwn, high dose seasonal, preservative-freeErika Crisostomo MD Work Phone: [facility] HospitalXswyek66-21-3580wgglatlvg virus vaccine, unspecified formulationMichael Hernández DO Work Phone: [phone]-RorfjOhiohealth Shelby Hospital 51-82-6235Axspnsu 20Gloria Rene Other [phone]-WqvooOhiohealth Shelby Hospital 65-71-6419Bgnnc-19, Mrna, Lnp-s, Pf,brigette-sucrose,30 Mcg/0.3ml Ligia Crisostomo MD Work Phone: [facility]10-06-2023Flu Shot - Documentation Purposes OnlyGloria Rene Other Darby CURRENT Other [id number] virus vaccine, unspecified formulationSamricci Garcia [phone]-WexsiOhiohealth Shelby Hospital 77-16-6720wennhhbev, seasonal, injectableGloria Rene Other [facility]05-18-2021Influenza, High-dose, QuadrivalentErika Crisostomo MD Work Phone: [facility] HospitalLeejki71-19-0173rgrgqoulqfco conjugate vaccine, 13 valentGloria Rene Other [facility] CampusRjjghn02-72-6421hqgpzqkrq, high dose seasonal, preservative-freeSujose armando Riggins RNTrinity Health System West CampusQehlqo06-64-7308mdgeshqno virus vaccine, unspecified formulationSludmila Riggins [facility]10-16-2013zoster vaccine, liveSusaromina Riggins RN [facility] [id number] virus vaccine, unspecified formulationSludmila Riggins RNTrinity Health System West CampusAhxiif42-62-8422lsmuiboyb virus vaccine, unspecified formulationSludmila Riggins RNTrinity Health System [facility] Campus Work Phone: [phone](adult) unspecified formulationErika Crisostomo MD Work Phone: [facility]04-24-2012tetanus and diphtheria toxoids, adsorbed, preservative free, for adult use (2 Lf of tetanus toxoid and 2 Lf of diphtheria toxoid)Venessa Riggins [facility] Work Phone: [phone]ml virus vaccine, unspecified formulationSludmila Riggins [facility] Work Phone: NEGATED: Highlighted row has not occurred!08-28-2024 influenza virus vaccine, unspecified formulationAdelamissy Vargas [phone]-JrttgBerger [facility] [place] Payers DatePayer CategoryPayerPolicy [id number] 2025Self-pay [id number] Health [id number] MedicaidAETNA MEDICARE ADVANTAGE Member Subscriber Plan / Payer (Effective 2025-Present) Name: Dariel Zabala Relation to Subscriber: Self Name: Dariel Zabala Payer ID: [id number] (NAIC) Type: Not on file Address: [address] [place] [id number] 2025Medicare O AETNA MEDICARE Member Subscriber Plan / Payer (Effective 2025-Present) Name: Dariel Zabala Relation to Subscriber: Self Name: Dariel Zabala ID: 1 (NAIC) Type: Not on file Address: [address] [id number] Health [id number] 2024Medicare (Managed Care)[employer] [id number]NMO [facility] [id number] 2023-Present [address] [place] [id number] 1.2.840.331832.1.13.693.2.[id number] 2.16.840.1.536670.416119 2023Medicare1.2.840.230433.1.13.159.2.7.3.477684.315 [id number] 2.16.840.1.652500.3.579.2.41886-91-2187Gxmtugn [id number] 2.16.840.1.835734.3.579.2.[id number] 2.16.840.1.632867.3.579.2.87877-40-1851Tmxjezq69989039 2.16.840.1.233565.3.579.2.17699-16-9488Dqtdfmj75549432 2.16.840.1.077732.3.579.2.87694-50-9844Kgeeilt9872081 2.16.840.1.609361.3.579.2.210535-85-1237Barmrkn7530165 2.16.840.1.741155.3.579.2.815784-55-2713Kygmgqi1665258 2.16.840.1.211559.3.579.2.364968-36-5312Uqjrdea0364227 2.16840.1.284497.3.579.2.571251-56-2827Grshjsu8167337 2.16.840.1.199019.3.579.2.725318-31-6726Gxncrca7969454 2.16840.1.604492.3.579.2.969793-20-8506Valywmz8036309 2.840.1.147145.3.579.2.936651-14-5187Dfswqum7106114 2.16840.1.840182.3.579.2.188800-70-4418Tjaxlqv0909992 2.840.1.304024.3.579.2.388404-31-7886Rcmbliv10546536 2.840.1.056283.3.579.2.14035-59-9539Kgomuro49383143 2.840.1.534938.3.579.2.83834-28-2028Ojfdogg87724877 2.16840.1.592234.3.579.2.15367-56-2294Kowogbt06305982 2.16840.1.416664.3.579.2.94417-64-8836Oqhuzwt28219043 2.16840.1.708828.3.579.2.58576-64-6291Pjncxji37375898 2.16840.1.668204.3.579.2.07117-51-2829Tvpijne65213223 2.16.840.1.697348.3.579.2.52585-38-2468Fnntncn46319303 2.16.840.1.874342.3.579.2.70268-49-3686Nhbfifr76706979 2.16840.1.497550.3.579.2.26407-00-0488Ulgsuco19542126 2.16.840.1.528548.3.579.2.72961-00-5721Fotjmxe56624040 2.16840.1.773451.3.579.2.63925-93-4897Oypmnsb60882632 2.16840.1.790649.3.579.2.00909-48-7627Rsjukmj03750291 2.16840.1.239422.3.579.2.35816-39-8143Vnunvkn98003527 2.16840.1.384539.3.579.2.31211-14-0590Vnwsats09802541 2.840.1.008613.3.579.2.98429-84-3922Kzeakps45018006 2.16840.1.745479.3.579.2.68868-08-7776Segyxit42886745 2.16840.1.002779.3.579.2.90879-37-4914Vpkirkp765865776 2.16840.1.126039.3.579.2.56538-02-6399Nmpszit21085097 2.16.840.1.194681.3.579.2.69412-49-7782Igrtefc39435066 2.16840.1.570110.3.579.2.69224-05-2179Hnswqav80952062 2.16.840.1.347346.3.579.2.84200-21-8533Jahqyoc57700065 2.16.840.1.463951.3.579.2.13796-94-2823Qojgsay07675146 2.16.840.1.692183.3.579.2.71259-52-1404Qbmoese16118525 2.16.840.1.605185.3.579.2.37334-62-5154Vnnxrxi47095210 2.16.840.1.600451.3.579.2.33851-24-0444Rpjhpzi29082556 2.16840.1.520320.3.579.2.68618-34-4714Otzshuo34498506 2.16.840.1.958216.3.579.2.05684-25-7318Saopxhp81946545 2.16.840.1.258101.3.579.2.50032-59-4427Pnherkr42650213 2.16840.1.290298.3.579.2.25993-16-2926Ffjjzmm03604122 2.16840.1.156115.3.579.2.54122-38-3078Terrxru94510156 2.16.840.1.023264.3.579.2.48020-50-2392Iihbwaj90538479 2.16.840.1.745605.3.579.2.83305-64-2753Riecljr70119725 2.16.840.1.031429.3.579.2.42312-90-4951Xybfvdw65409320 2.16.840.1.689443.3.579.2.06587-50-7570Rmfhkly23461162 2.16.840.1.788785.3.579.2.37600-50-0721Hgsibba94457108 2.16.840.1.768420.3.579.2.68879-89-7632Fjlfvmc89596347 2.16840.1.242856.3.579.2.05370-57-3906Xpylpsf07932115 2.16.840.1.618848.3.579.2.62638-36-1143Ozzvygl94753136 2.840.1.834323.3.579.2.83070-69-8482Igkybhz31142359 2.840.1.173094.3.579.2.17539-74-6573Kbhvhmj10067266 2.840.1.633800.3.579.2.52530-24-7475Alrugfz23365682 2.16.840.1.018100.3.579.2.98951-72-9324Qfncxxy98995340 2.840.1.346187.3.579.2.36293-78-3440Uuymest63324683 2.840.1.227729.3.579.2.45904-25-3619Xqcpjik87920268 2.16840.1.675867.3.579.2.58732-85-3225Bqhslga65951368 2.16840.1.135832.3.579.2.92818-65-2811Rdxxqaz07110348 2.16.840.1.56[id number] 2.16840.1.506975.19Medicare [id number] 2.16.840.1.752493.85Xooapvu31260509 2.16.840.1.156624.3.579.2.531 Social History DateTypeDetailFacilityStart: 06-20-2024 End: 67-30-1637Utc [facility]: 12-01-2023 End: 59-42-9553Wswyjrl smoking status NHISNever smoked tobaccoTrinity Health System West Campus Comment on above:denies use.Start: 36-94-8383Mbohyiy intakeCurrent drinker of alcohol (finding)[facility]: 06-28-2022 End: 95-80-0988Bbsjmgk intakeTriHealth McCullough-Hyde Memorial Hospitaltart: 92-55-4478Jim Assigned At BirthNot on fileTrinity Health System West CampusTobacco smoking statusNeverBerger Hospital Family Medicine BellevueComment on above:denies use.Start: 02-15-2024 End: 23-90-0081Zpjqgwn use and exposureSmokeless tobacco non-userNOMS Healthcare Sexual OrientationPrem[facility] Health [facility] Start: 03-27-2015 End: 51-39-6602JkzJrmh (finding)[facility]: 06-02-2025 Alcoholic beverage intakeLifetime non-drinker (finding)[facility] Has the electric, gas, oil, or water company threatened to shut off services in your home in past 12MoNoBon [facility](I/We) worried whether (my/our) food would run out before (I/we) got money to buy more.Never trueBon Children'S Hospital Of ColumbusStart: 90-93-0775Yvaqrscgr beverage intakeEx-drinker (finding) [facility] SystemHow often to you have a drink containing alcohol?Never [facility] SystemStart: 58-18-3950Aeo Assigned At [facility] Hospitaltart: 89-19-2650WJIW Follow upSDOH Follow upSt. Rita'S Hospital Work Phone: Medical Equipment Procedure CodeEquipment CodeEquipment Original TextEquipment IdentifierDatesTest blood sugar(s) 2 times daily. Dx: non. Insulin: No dx 250.00Start: 08-24-2013 Comment on above:Test blood sugar(s) 2 times daily. Dx: non. Insulin: No dx 250.00 Goals DatePatient GoalDesired Activity/StatePersonal health goalComment on above: Evaluation of progress towards goal: Home with [facility] Functional Status WqbfGbhsizkbkeSaruwcVdmcfjnn54-57-4581Shxfy score [AUDIT-C]0 06/17/2025 4:54 PM EDT [facility] CuellarCritical access hospital12-17-2024Functional StatusNo [facility]10-15-2024Functional StatusN/[facility] Leghshq22-63-5042Dnaevixvfo StatusN/[facility]07-17-2024Functional [facility] 94-60-9381Neirqvrbof StatusN/[facility]04-23-2024Functional StatusB[facility] Health [facility] Mental Status DateAssessmentResultOakleaf Surgical Hospital Clinical Notes 03-10-2010 to 08-26-2025 Note Date & HwrxPogjMjnjiwwm40-84-5944 NotePatient Education Nephrology Hyponatremia Hyponatremia is when [...] Follow these instructions at home: ??? Take qyrf-ngf-lpxheww and prescription medicines only as told by [...] provider. Document Revised: 05/11/2022 Document Reviewed: 05/11/2022 Elsevier Patient Education ? 2023 [employer] 07-25-2025 NotePatient Education Infectious Disease Sepsis, Diagnosis, Adult Sepsis is a serious bodily reaction to an infection. The infection that triggers sepsis may be froma bacteria, virus, or fungus. Sepsis can result [...] symptoms, medical history, and physical exam. Other testsmay also be done to find out the [...] these instructions at home: Medicines ??? Take atmk-aby-ujvvaew and prescription medicines only as told by [...] away. Get medica (more content not included)... [facility]09-05-2025 Evaluation note* Diagnosis Onset Date Resolution Status Admit Date Abnormal urinary tract, radiological acuteSept2024 6:22pmBPH w urinary obs/LUTSacuteSept2024 6:22pmDiverticulitisacuteSept2024 6:22pmLower abdominal painacute July 19, 2025 6:22pmReducible right inguinal herniaacuteSept2024 6:22pmSepsisacuteSept2024 6:22pmSpleen hematomaacuteSept2024 6:22pmSplenic infarctacuteSept2024 6:22pm [facility] Work Phone: [phone]) 583-238708-28-2025 NotePatient Education Neurology Stroke Prevention Some medical [...] ? Biking. ? Swimming. Medicines ??? Take aqri-haa-rzzstmn and prescription medicines only as told by your doctor. ??? Avoid taking control pills. Talk to your doctor about the risks of taking control pills if: ? You are over 35 years old. ? You smoke. ? You get very bad headaches. ? You have had a blood clot. Where to find more information ??? [place] [employer]: www.strokeassociation.org Get help right away [...] what people say. ? (more content not included)...[facility]08-21-2025 Note Patient Education Nephrology Hyponatremia [...] Follow these instructions at home: ??? Take egwr-hnw-lytyayg and prescription medicines only as told by [...] provider. Document Revised: 05/11/2022 Document Reviewed: 05/11/2022 [employer] Patient Education ? 2023 [employer] 06-23-2025 Nurse Note* Debra Huggins RN - 06/23/2025 3:01 PM EDT [facility] at [facility] time. Report called and questions addressed. PIV and tele discontinued. All personal belongings packed and left with patient. Report given to transport as well. No other concerns at this time. Left on stretcher [facility]08-10-2025 Nurse Note* Debra Huggins RN - 06/23/2025 3:01 PM EDT Patient discharged to the [facility] at this time. Report called [...] Notified ofQT from [place] done [place]. documented in this encounterC[facility]08-10-2025 Plan of care note * Plan of Care - Debra Huggins RN - 06/23/2025 11:02 AM EDT Problem: Pain Goal: Patient goal is pain score less than 4, able to rest, and participant in treatment plan as appropriate Description: INTERVENTIONS: 1. Encourage patient or legal agency service representative to report early pain and ask [...] per policy 9. Teach patient or legal agency service representative interventions for comforting Outcome: Adequate for [...] at the bedside 7. Instruct patient/ patient agency service representative about use of safety devices 8. Include patient/ patient agency service representative in decisions related to safety Outcome: [...] hygiene technique. 7. Identify and instruct patient/patient agency service representative in use of appropriate isolation precautionsfor identified infection/symptoms. 8. Provide and discuss with patient/patient agency service representative on educational MDRO sheet. 9. Encourage and monitor nutritional status daily and consult creeler if indicated. 10. Implement neutropenic guidelines as needed. Outcome: Adequate for Discharge Problem: Knowledge Deficit Goal: Patient/patient agency service representative demonstrates understanding of disease process, treatment [...] supplement as ordered 13. Collaborate with clinical creeler 14. Include patient/ patient's agency service representative in decisions related to nutrition Outcome: [...] develop effective communication strategies 4. Include patient/patient agency service representative in decisions related to communication Outcome: [...] Collaborate with ancillary departments 14. Include patient/patient agency service representative in decisions related to anxiety Outcome: [...] care 6. Collaborate with pastoral/spiritual care, social welfare clerk, mental health counselor as needed. 7. Instruct patient on diversional activities such as physical activity, distraction, and deep breathing exercises to assist with coping 8. Involve patient's agency service representative in care Outcome: Adequate for Discharge [...] Moderate - High Risk Fall Score Description: Hudgins Fall Score of =/> 25 or indicated by [facility] Assessment Goal: Patient should be free from fall Description: Interventions: 1. [place] to environment 2. Hourly rounds addressing the [...] non-skid footwear 11. Teach patient and patient agency service representative to maintain environment for safety and [...] (cane, walker) within reach 19. Request patient agency service representative bring adaptive equipment/mobility aids from home or obtain and provide as needed 20. Consult pharmacy regarding effects of med's affecting mobility, cognition, and alternatives 21. Obtain physician order for PT if risk factors associated with mobility are present 22. Obtain physician order for OT as appropriate 23. Utilize diversional activities 24. Educate patient and patient agency service representative how to maintain a safe environment during visitationtimes (notify nurse prior to leaving bedside) 25. Consider appropriateness of medical or non-chief medical technologist 26. Set up voiding schedule as appropriate (every 2 hours) Outcome: Adequate for Discharge Medcurrent [id number] Miscellaneous Notes* Plan of Care - Debra Huggins RN - 06/23/2025 11:02 AM EDT Problem: Pain Goal: Patient goal is pain score less than 4, able to rest, and participant in treatment plan as appropriate Description: INTERVENTIONS: 1. Encourage patient or legal agency service representative to report early pain and ask [...] per policy 9. Teach patient or legal agency service representative interventions for comforting Outcome: Adequate for [...] at the bedside 7. Instruct patient/ patient agency service representative about use of safety devices 8. Include patient/ patient agency service representative in decisions related to safety Outcome: [...] hygiene technique. 7. Identify and instruct patient/patient agency service representative in use of appropriate isolation precautionsfor identified infection/symptoms. 8. Provide and discuss with patient/patient agency service representative on educational MDRO sheet. 9. Encourage and monitor nutritional status daily and consult creeler if indicated. 10. Implement neutropenic guidelines as needed. Outcome: Adequate for Discharge Problem: Knowledge Deficit Goal: Patient/patient agency service representative demonstrates understanding of disease process, treatment [...] supplement as ordered 13. Collaborate with clinical creeler 14. Include patient/ patient's agency service representative in decisions related to nutrition Outcome: [...] develop effective communication strategies 4. Include patient/patient agency service representative in decisions related to communication Outcome: [...] Collaborate with ancillary departments 14. Include patient/patient agency service representative in decisions related to anxiety Outcome: [...] care 6. Collaborate with pastoral/spiritual care, social welfare clerk, mental health counselor as needed. 7. Instruct patient on diversional activities such as physical activity, distraction, and deep breathing exercises to assist with coping 8. Involve patient's agency service representative in care Outcome: Adequate for Discharge [...] Score of =/> 25 or indicated by [facility] Assessment Goal: Patient should be free from fall Description: Interventions: 1. [place] to environment 2. Hourly rounds addressing the [...] non-skid footwear 11. Teach patient and patient agency service representative to maintain environment for safety and [...] (cane, walker) within reach 19. Request patient agency service representative bring adaptive equipment/mobility aids from home or obtain and provide as needed 20. Consult pharmacy regarding effects of med's affecting mobility, cognition, and alternatives 21. Obtain physician order for PT if risk factors associated with mobility are present 22. Obtain physician order for OT as appropriate 23. Utilize diversional activities 24. Educate patient and patient agency service representative how to maintain a safe environment during visitationtimes (notify nurse prior to leaving bedside) 25. Consider appropriateness of medical or non-chief medical technologist 26. Set up voiding schedule as appropriate (every 2 hours) Outcome: Adequate for Discharge * Discharge Planning Note - Hellen Brady - 06/23/2025 10:54 AM EDT DISCHARGE PLANNING NOTE BLS via PTN scheduled for today [place] 1 [place] Confirmed in [place]. * Discharge Planning Note - CHARLES Lee - 06/23/2025 10:39 AM EDT DISCHARGE PLANNING NOTE Discharge written, CRF complete. Social work task [facility] to arrange BLS transport- wait confirmed time. [place] jose ramon Mejia notified of discharge and [...] Description: INTERVENTIONS: 1. Encourage patient or legal agency service representative to report early pain and ask [...] per policy 9. Teach patient or legal agency service representative interventions for comforting 06/23/2025 0628 by [...] at the bedside 7. Instruct patient/ patient agency service representative about use of safety devices 8. Include patient/ patient agency service representative in decisions related to safety Outcome: [...] hygiene technique. 7. Identify and instruct patient/patient agency service representative in use of appropriate isolation precautionsfor identified infection/symptoms. 8. Provide and discuss with patient/patient agency service representative on educational MDRO sheet. 9. Encourage and monitor nutritional status daily and consult creeler if indicated. 10. Implement neutropenic guidelines as needed. Outcome: Progressing Note: Evaluation of progress towards goal: Standard precaution maintained Problem: Knowledge Deficit Goal: Patient/patient agency service representative demonstrates understanding of disease process, treatment [...] supplement as ordered 13. Collaborate with clinical creeler 14. Include patient/ patient's agency service representative in decisions related to nutrition Outcome: [...] develop effective communication strategies 4. Include patient/patient agency service representative in decisions related to communication Outcome: [...] Collaborate with ancillary departments 14. Include patient/patient agency service representative in decisions related to anxiety Outcome: [...] care 6. Collaborate with pastoral/spiritual care, social welfare clerk, mental health counselor as needed. 7. Instruct patient on diversional activities such as physical activity, distraction, and deep breathing exercises to assist with coping 8. Involve patient's agency service representative in care Outcome: Progressing Note: Evaluation [...] Score of =/> 25 or indicated by [facility] Assessment Goal: Patient should be free from fall Description: Interventions: 1. [place] to environment 2. Hourly rounds addressing the [...] non-skid footwear 11. Teach patient and patient agency service representative to maintain environment for safety and [...] (cane, walker) within reach 19. Request patient agency service representative bring adaptive equipment/mobility aids from home or obtain and provide as needed 20. Consult pharmacy regarding effects of med's affecting mobility, cognition, and alternatives 21. Obtain physician order for PT if risk factors associated with mobility are present 22. Obtain physician order for OT as appropriate 23. Utilize diversional activities 24. Educate patient and patient agency service representative how to maintain a safe environment during visitationtimes (notify nurse prior to leaving bedside) 25. Consider appropriateness of medical or non-chief medical technologist 26. Set up voiding schedule as appropriate (every 2 hours) Outcome: Progressing Note: Evaluation of progress towards goal: Fall bundles maintained * Plan of Care - Debra Huggins RN - 06/22/2025 2:18 PM EDT Problem: Pain Goal: Patient goal is pain score less than 4, able to rest, and participant in treatment plan as appropriate Description: INTERVENTIONS: 1. Encourage patient or legal agency service representative to report early pain and ask [...] per policy 9. Teach patient or legal agency service representative interventions for comforting Outcome: Progressing Note: [...] at the bedside 7. Instruct patient/ patient agency service representative about use of safety devices 8. Include patient/ patient agency service representative in decisions related to safety Outcome: [...] hygiene technique. 7. Identify and instruct patient/patient agency service representative in use of appropriate isolation precautionsfor identified infection/symptoms. 8. Provide and discuss with patient/patient agency service representative on educational MDRO sheet. 9. Encourage and monitor nutritional status daily and consult creeler if indicated. 10. Implement neutropenic guidelines as needed. Outcome: Progressing Note: Evaluation of progress towards goal: continue to monitor labs, vitals, tele, IV site Problem: Knowledge Deficit Goal: Patient/patient agency service representative demonstrates understanding of disease process, treatment [...] supplement as ordered 13. Collaborate with clinical creeler 14. Include patient/ patient's agency service representative in decisions related to nutrition Outcome: [...] develop effective communication strategies 4. Include patient/patient agency service representative in decisions related to communication Outcome: Progressing Note: Evaluation of progress towards goal: [place], speak loudly and understands Problem: Potential for [...] Collaborate with ancillary departments 14. Include patient/patient agency service representative in decisions related to anxiety Outcome: [...] care 6. Collaborate with pastoral/spiritual care, social welfare clerk, mental health counselor as needed. 7. Instruct patient on diversional activities such as physical activity, distraction, and deep breathing exercises to assist with coping 8. Involve patient's agency service representative in care Outcome: Progressing Note: Evaluation [...] Progressing Note: Evaluation of progress towards goal: [place] Problem: Moderate - High Risk Fall Score Description: Valenzuela Fall Score of =/> 25 or indicated by [facility] Assessment Goal: Patient should be free from fall Description: Interventions: 1. [place] to environment 2. Hourly rounds addressing the [...] non-skid footwear 11. Teach patient and patient agency service representative to maintain environment for safety and [...] (cane, walker) within reach 19. Request patient agency service representative bring adaptive equipment/mobility aids from home or obtain and provide as needed 20. Consult pharmacy regarding effects of med's affecting mobility, cognition, and alternatives 21. Obtain physician order for PT if risk factors associated with mobility are present 22. Obtain physician order for OT as appropriate 23. Utilize diversional activities 24. Educate patient and patient agency service representative how to maintain a safe environment during visitationtimes (notify nurse prior to leaving bedside) 25. Consider appropriateness of medical or non-chief medical technologist 26. Set up voiding schedule as appropriate (every 2 hours) Outcome: Progressing Note: Evaluation of progress towards goal: no falls; syncopal episode per notes 06/21; up with assistonly; high fall risk - maintain precautions * Discharge Planning Note - Norma Ritter - 06/22/2025 12:42 PM EDT DISCHARGE PLANNING NOTE Prior Auth approved for admission to : [facility] (P# [phone] ; F# ) Approval # [id number] Valid for Dates: 06/22/2025 - 06/28/2025 * Discharge Planning Note - Norma Ritter - 06/22/2025 10:39 AM EDT DISCHARGE PLANNING NOTE Prior auth submitted to: [employer] Via: [employer] On behalf of : [facility] [place] (P# ; F# ) Ref# [id number] * Discharge Planning Note - CHARLES Lee - 06/22/2025 10:15 AM EDT DISCHARGE PLANNING NOTE Case discussed in daily transition rounds and chart reviewed by CN. Discharge Plan remains: [facility] [place]. [facility] [place] accepting referral. Social work contacted to inform of above and she was pleased with the news. is looking for patient's SSN. Social work task [facility] to start precert. CN will continue to follow and is available should any further needs arise. - CHARLES LEE 06/22/25 10:15 AM Insurance approved SNF stay. Patient is tentatively discharged tomorrow. Social work sent a messageto [facility] to inform of tentative discharge date. [...] Description: INTERVENTIONS: 1. Encourage patient or legal agency service representative to report early pain and ask [...] per policy 9. Teach patient or legal agency service representative interventions for comforting Outcome: Progressing Note: [...] at the bedside 7. Instruct patient/ patient agency service representative about use of safety devices 8. Include patient/ patient agency service representative in decisions related to safety Outcome: [...] hygiene technique. 7. Identify and instruct patient/patient agency service representative in use of appropriate isolation precautionsfor identified infection/symptoms. 8. Provide and discuss with patient/patient agency service representative on educational MDRO sheet. 9. Encourage and monitor nutritional status daily and consult creeler if indicated. 10. Implement neutropenic guidelines as needed. Outcome: Progressing Note: Evaluation of progress towards goal: Pt has no s/s of infection, standard precaution maintained Problem: Knowledge Deficit Goal: Patient/patient agency service representative demonstrates understanding of disease process, treatment [...] supplement as ordered 13. Collaborate with clinical creeler 14. Include patient/ patient's agency service representative in decisions related to nutrition Outcome: [...] develop effective communication strategies 4. Include patient/patient agency service representative in decisions related to communication Outcome: [...] Collaborate with ancillary departments 14. Include patient/patient agency service representative in decisions related to anxiety Outcome: [...] care 6. Collaborate with pastoral/spiritual care, social welfare clerk, mental health counselor as needed. 7. Instruct patient on diversional activities such as physical activity, distraction, and deep breathing exercises to assist with coping 8. Involve patient's agency service representative in care Outcome: Progressing Note: Evaluation [...] Score of =/> 25 or indicated by [facility] Assessment Goal: Patient should be free from fall Description: Interventions: 1. [place] to environment 2. Hourly rounds addressing the [...] non-skid footwear 11. Teach patient and patient agency service representative to maintain environment for safety and [...] (cane, walker) within reach 19. Request patient agency service representative bring adaptive equipment/mobility aids from home or obtain and provide as needed 20. Consult pharmacy regarding effects of med's affecting mobility, cognition, and alternatives 21. Obtain physician order for PT if risk factors associated with mobility are present 22. Obtain physician order for OT as appropriate 23. Utilize diversional activities 24. Educate patient and patient agency service representative how to maintain a safe environment during visitationtimes (notify nurse prior to leaving bedside) 25. Consider appropriateness of medical or non-chief medical technologist 26. Set up voiding schedule as appropriate (every 2 hours) Outcome: Progressing Note: Evaluation of progress towards goal: Fall bundles maintained * Plan of Care - Lauren Gaona RN - 06/21/2025 6:18 PM EDT Problem: Knowledge Deficit Goal: Patient/patient agency service representative demonstrates understanding of disease process, treatment [...] for adl's Problem: Knowledge Deficit Goal: Patient/patient agency service representative demonstrates understanding of disease process, treatment [...] Description: INTERVENTIONS: 1. Encourage patient or legal agency service representative to report early pain and ask [...] per policy 9. Teach patient or legal agency service representative interventions for comforting Outcome: Progressing Note: [...] at the bedside 7. Instruct patient/ patient agency service representative about use of safety devices 8. Include patient/ patient agency service representative in decisions related to safety Outcome: [...] hygiene technique. 7. Identify and instruct patient/patient agency service representative in use of appropriate isolation precautionsfor identified infection/symptoms. 8. Provide and discuss with patient/patient agency service representative on educational MDRO sheet. 9. Encourage and monitor nutritional status daily and consult creeler if indicated. 10. Implement neutropenic guidelines as [...] supplement as ordered 13. Collaborate with clinical creeler 14. Include patient/ patient's agency service representative in decisions related to nutrition Outcome: [...] develop effective communication strategies 4. Include patient/patient agency service representative in decisions related to communication Outcome: [...] Collaborate with ancillary departments 14. Include patient/patient agency service representative in decisions related to anxiety Outcome: [...] care 6. Collaborate with pastoral/spiritual care, social welfare clerk, mental health counselor as needed. 7. Instruct patient on diversional activities such as physical activity, distraction, and deep breathing exercises to assist with coping 8. Involve patient's agency service representative in care Outcome: Progressing Note: Evaluation [...] Moderate - High Risk Fall Score Description: Hudgins Fall Score of =/> 25 or indicated by [facility] Assessment Goal: Patient should be free from fall Description: Interventions: 1. [place] to environment 2. Hourly rounds addressing the [...] non-skid footwear 11. Teach patient and patient agency service representative to maintain environment for safety and [...] (cane, walker) within reach 19. Request patient agency service representative bring adaptive equipment/mobility aids from home or obtain and provide as needed 20. Consult pharmacy regarding effects of med's affecting mobility, cognition, and alternatives 21. Obtain physician order for PT if risk factors associated with mobility are present 22. Obtain physician order for OT as appropriate 23. Utilize diversional activities 24. Educate patient and patient agency service representative how to maintain a safe environment during visitationtimes (notify nurse prior to leaving bedside) 25. Consider appropriateness of medical or non-chief medical technologist 26. Set up voiding schedule as appropriate [...] Description: INTERVENTIONS: 1. Encourage patient or legal agency service representative to report early pain and ask [...] per policy 9. Teach patient or legal agency service representative interventions for comforting Outcome: Progressing Note: [...] at the bedside 7. Instruct patient/ patient agency service representative about use of safety devices 8. Include patient/ patient agency service representative in decisions related to safety Outcome: [...] hygiene technique. 7. Identify and instruct patient/patient agency service representative in use of appropriate isolation precautionsfor identified infection/symptoms. 8. Provide and discuss with patient/patient agency service representative on educational MDRO sheet. 9. Encourage and monitor nutritional status daily and consult creeler if indicated. 10. Implement neutropenic guidelines as [...] supplement as ordered 13. Collaborate with clinical creeler 14. Include patient/ patient's agency service representative in decisions related to nutrition Outcome: [...] develop effective communication strategies 4. Include patient/patient agency service representative in decisions related to communication Outcome: [...] Collaborate with ancillary departments 14. Include patient/patient agency service representative in decisions related to anxiety Outcome: [...] care 6. Collaborate with pastoral/spiritual care, social welfare clerk, mental health counselor as needed. 7. Instruct patient on diversional activities such as physical activity, distraction, and deep breathing exercises to assist with coping 8. Involve patient's agency service representative in care Outcome: Progressing Note: Evaluation [...] Score of =/> 25 or indicated by [facility] Assessment Goal: Patient should be free from fall Description: Interventions: 1. [place] to environment 2. Hourly rounds addressing the [...] non-skid footwear 11. Teach patient and patient agency service representative to maintain environment for safety and [...] (cane, walker) within reach 19. Request patient agency service representative bring adaptive equipment/mobility aids from home or obtain and provide as needed 20. Consult pharmacy regarding effects of med's affecting mobility, cognition, and alternatives 21. Obtain physician order for PT if risk factors associated with mobility are present 22. Obtain physician order for OT as appropriate 23. Utilize diversional activities 24. Educate patient and patient agency service representative how to maintain a safe environment during visitationtimes (notify nurse prior to leaving bedside) 25. Consider appropriateness of medical or non-chief medical technologist 26. Set up voiding schedule as appropriate (every 2 hours) Outcome: Progressing Note: Evaluation of progress towards goal: free of fall this shift Problem: Pain Goal: Patient goal is pain score less than 4, able to rest, and participant in treatment plan as appropriate Description: INTERVENTIONS: 1. Encourage patient or legal agency service representative to report early pain and ask [...] per policy 9. Teach patient or legal agency service representative interventions for comforting Outcome: Progressing Note: [...] at the bedside 7. Instruct patient/ patient agency service representative about use of safety devices 8. Include patient/ patient agency service representative in decisions related to safety Outcome: [...] at the bedside 7. Instruct patient/ patient agency service representative about use of safety devices 8. Include patient/ patient agency service representative in decisions related to safety Outcome: [...] hygiene technique. 7. Identify and instruct patient/patient agency service representative in use of appropriate isolation precautionsfor identified infection/symptoms. 8. Provide and discuss with patient/patient agency service representative on educational MDRO sheet. 9. Encourage and monitor nutritional status daily and consult creeler if indicated. 10. Implement neutropenic guidelines as [...] supplement as ordered 13. Collaborate with clinical creeler 14. Include patient/ patient's agency service representative in decisions related to nutrition Outcome: [...] develop effective communication strategies 4. Include patient/patient agency service representative in decisions related to communication Outcome: [...] Collaborate with ancillary departments 14. Include patient/patient agency service representative in decisions related to anxiety Outcome: [...] Score of =/> 25 or indicated by [facility] Assessment Goal: Patient should be free from fall Description: Interventions: 1. [place] to environment 2. Hourly rounds addressing the [...] non-skid footwear 11. Teach patient and patient agency service representative to maintain environment for safety and [...] (cane, walker) within reach 19. Request patient agency service representative bring adaptive equipment/mobility aids from home or obtain and provide as needed 20. Consult pharmacy regarding effects of med's affecting mobility, cognition, and alternatives 21. Obtain physician order for PT if risk factors associated with mobility are present 22. Obtain physician order for OT as appropriate 23. Utilize diversional activities 24. Educate patient and patient agency service representative how to maintain a safe environment during visitationtimes (notify nurse prior to leaving bedside) 25. Consider appropriateness of medical or non-chief medical technologist 26. Set up voiding schedule as appropriate [...] care 6. Collaborate with pastoral/spiritual care, social welfare clerk, mental health counselor as needed. 7. Instruct patient on diversional activities such as physical activity, distraction, and deep breathing exercises to assist with coping 8. Involve patient's agency service representative in care Outcome: Progressing Note: Evaluation of progress towards goal: no issues * Discharge Planning Note - Martina Mckeon - 06/21/2025 3:45 PM EDT DISCHARGE PLANNING NOTE Referral sent to [facility] (P# ; F# ) * Discharge Planning Note - Rohini Mcintyre RN - 06/21/2025 2:29 PM EDT 06/21/25 5138 Services Requested Patient expects to be discharged to: SNF Does the patient wish to have family/friend/caregiver involved in their discharge planning? Yes Does the patient plan to return home to a community setting? No, patient to discharge to facility-based provider. See Discharge Disposition Discharge Disposition SNF Facility/Service Name NA SNF Name [facility] Does the patient need discharge transportation arranged? Yes Transportation Arranged Ambulance Mobility issues discussed with transportation provider Yes Patient choice offered Yes List Provided Yes [facility] List Provided Long-Term Facility Financial Disclosure Provided for In-Network Referral Yes DISCHARGE PLANNING NOTE CN spoke w pts , SNF choice is [facility]. She did n ot have a 2nd choice. CN asked her to review list for dditional choices. CN tasked for referral to [facility] [place]. Barriers: SNFaccept. Will need precert. CTbrain.Rohini Mcintyre RN * Discharge Planning Note - Rohini Mcintyre RN - 06/21/2025 12:44 PM EDT DISCHARGE PLANNING NOTE PT/OT rec SNF. CN called and left Voicemail for pts . Pt not appropriate for [facility]. Need SNF choices. CN also sent SNF list Via [facility]port to pts cell phone to select choices. Await response. Rohini Mcintyre RN * PT/OT/MENTAL HEALTH PROGRAM DIRECTOR - Veronica Rivera OTR/Krishan - 06/21/2025 9:58 AM EDT Occupational Therapy Re-Evaluation Discharge Recommendations for Safe Patient Transition Discharge Recommendations: Post acute - moderate Post Acute Moderate Rehab Needs: Recommend moderate intensity rehab, Tolerate 1- 2 hrs of therapy 3-5 days/wk, Subacute or chronic functional impairment Current Impairments Informing Therapy Recommendation: Ambulation status/safety, Cognition, Fall risk, ADL status, Endurance level, Communication needs Modified Porter Level of Disability: Moderately severe disability 0= [...] None Scoring Daily Activity Raw Score: 14 [facility] G Code Modifier: CK Modified chip index: 04/02 Occupational Profile Patient seen for OT eval on 06-19-2025. Patient now seen for OT re-eval to update goals due to improved level of alertness and ability to participate in therapy. Patient admitted with left side weakness and aphasia. 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 History of A-fib on coumadin and diabetic. Continue to recommend shelter facility. Patient with episode of decreased responsiveness with listing to the left while on commode for 1-2 minutes. Once alert patient was nauseated. RNLauren called to room. Patient assisted from tomeme gomes and MD in room. See below for past medical and past surgical history. Past Medical History: Diagnosis Date Atrial fibrillation ([facility] BPH (benign prostatic hyperplasia) Broken nose CVA (cerebral vascular accident) ([facility]) 06/17/2025 Diabetes ([facility]) Epistaxis Hypertension Hyponatremia secondary to SIADH Hypothyroid [...] Equipment: waker, chair alarm, gait belt, telemetry. Telemetry/Sales Analyst: Yes Oxygen Used: room air Other: (S) [...] Patient will perform toilet transfers with Modified [place] Dates: Start: 06/21/25 Expected End: 07/19/25 Description: [...] problems. Principal Problem: CVA (cerebral vascular accident) ([facility]) * PT/OT/MENTAL HEALTH PROGRAM DIRECTOR - Dana Campos, PT - 06/21/2025 9:56 AM EDT [...] 6 Clicks: Basic Mobility Raw Score: 15 [facility] G Code Modifier: CK SwePASS score [...] Past Medical History: Diagnosis Date Atrial fibrillation ([facility]) BPH (benign prostatic hyperplasia) Broken nose CVA (cerebral vascular accident) ([facility]) 06/17/2025 Diabetes ([facility]) Epistaxis Hypertension Hyponatremia secondary to SIADH Hypothyroid Lumbar spondylosis TIA (transient ischemic attack) Past Surgical History: Procedure Laterality Date NECK SURGERY plate in neck per Modified Porter Level of Disability: Moderately severe disability 0= [...] gait belt, wheeled walker, IV, chair/bed alarm Telemetry/Sales Analyst: Yes Oxygen Used: room air Other: (S) [...] problems. Principal Problem: CVA (cerebral vascular accident) ([facility]) * Plan of Care - Nicole Sparks RN - 06/20/2025 11:40 PM EDT Problem: Pain Goal: Patient goal is pain score less than 4, able to rest, and participant in treatment plan as appropriate Description: INTERVENTIONS: 1. Encourage patient or legal agency service representative to report early pain and ask [...] per policy 9. Teach patient or legal agency service representative interventions for comforting Outcome: Progressing Note: [...] at the bedside 7. Instruct patient/ patient agency service representative about use of safety devices 8. Include patient/ patient agency service representative in decisions related to safety Outcome: [...] hygiene technique. 7. Identify and instruct patient/patient agency service representative in use of appropriate isolation precautionsfor identified infection/symptoms. 8. Provide and discuss with patient/patient agency service representative on educational MDRO sheet. 9. Encourage and monitor nutritional status daily and consult creeler if indicated. 10. Implement neutropenic guidelines as needed. Outcome: Progressing Note: Evaluation of progress towards goal: No s/s of infection at this time Problem: Knowledge Deficit Goal: Patient/patient agency service representative demonstrates understanding of disease process, treatment [...] be free from fall Description: Interventions: 1. [place] to environment 2. Hourly rounds addressing the [...] non-skid footwear 11. Teach patient and patient agency service representative to maintain environment for safety and [...] (cane, walker) within reach 19. Request patient agency service representative bring adaptive equipment/mobility aids from home or obtain and provide as needed 20. Consult pharmacy regarding effects of med's affecting mobility, cognition, and alternatives 21. Obtain physician order for PT if risk factors associated with mobility are present 22. Obtain physician order for OT as appropriate 23. Utilize diversional activities 24. Educate patient and patient agency service representative how to maintain a safe environment during visitationtimes (notify nurse prior to leaving bedside) 25. Consider appropriateness of medical or non-chief medical technologist 26. Set up voiding schedule as appropriate (every 2 hours) Outcome: Progressing Note: Evaluation of progress towards goal: pt free from fall at this time Problem: Knowledge Deficit Goal: Patient/patient agency service representative demonstrates understanding of disease process, treatment [...] attending, clinical handoff received from Neurology resident. [facility] will assume careas primary team [...] will need updated PT/OT notes sent to [facility]. When pt/ot worked w him yesterday [...] received a voice mail from Franc at [facility] phone [phone], she says she has left a few messages for an update for patient. This is the only vm I have received. Sending an [employer] chat to Rohini / Vivienne / Mesha with information * Plan of Care - Nicole Sparks RN - 06/19/2025 11:13 PM EDT Problem: Pain Goal: Patient goal is pain score less than 4, able to rest, and participant in treatment plan as appropriate Description: INTERVENTIONS: 1. Encourage patient or legal agency service representative to report early pain and ask [...] per policy 9. Teach patient or legal agency service representative interventions for comforting Outcome: Progressing Note: [...] at the bedside 7. Instruct patient/ patient agency service representative about use of safety devices 8. Include patient/ patient agency service representative in decisions related to safety Outcome: [...] hygiene technique. 7. Identify and instruct patient/patient agency service representative in use of appropriate isolation precautionsfor identified infection/symptoms. 8. Provide and discuss with patient/patient agency service representative on educational MDRO sheet. 9. Encourage and monitor nutritional status daily and consult creeler if indicated. 10. Implement neutropenic guidelines as [...] supplement as ordered 13. Collaborate with clinical creeler 14. Include patient/ patient's agency service representative in decisions related to nutrition Outcome: [...] Score of =/> 25 or indicated by [facility] Assessment Goal: Patient should be free from fall Description: Interventions: 1. [place] to environment 2. Hourly rounds addressing the [...] non-skid footwear 11. Teach patient and patient agency service representative to maintain environment for safety and [...] (cane, walker) within reach 19. Request patient agency service representative bring adaptive equipment/mobility aids from home or obtain and provide as needed 20. Consult pharmacy regarding effects of med's affecting mobility, cognition, and alternatives 21. Obtain physician order for PT if risk factors associated with mobility are present 22. Obtain physician order for OT as appropriate 23. Utilize diversional activities 24. Educate patient and patient agency service representative how to maintain a safe environment during visitationtimes (notify nurse prior to leaving bedside) 25. Consider appropriateness of medical or non-chief medical technologist 26. Set up voiding schedule as appropriate (every 2 hours) Outcome: Progressing Note: Evaluation of progress towards goal: pt free from fall at this time safety measures in place * PT/OT/MENTAL HEALTH PROGRAM DIRECTOR - Dana Chapman Andres, PT - 06/19/2025 2:49 PM EDT Physical [...] P1/P2 occlusion. TNK given and transfer to [facility]. On arrival, NIHSS = 0 CT perfusion [...] Pt has been lethargic, not following commands 8/6 - RN Deepali aware. Past Medical History: Diagnosis Date Atrial fibrillation [place] BPH (benign prostatic hyperplasia) Broken nose CVA (cerebral vascular accident) ([facility] 06/17/2025 Diabetes ([facility] Epistaxis Hypertension Hyponatremia secondary to SIADH Hypothyroid Lumbar spondylosis TIA (transient ischemic attack) Past Surgical History: Procedure Laterality Date NECK SURGERY plate in neck per Modified Porter Level of Disability: Severe disability 0= No [...] tolerated Equipment: repositioning sling, IV, bed alarm Telemetry/Sales Analyst: Yes Oxygen Used: room air Other: high [...] with rails Stairs to Enter: [address] draftsperson Rails: Right Stairs in Home: 0 Bathroom Shower/Tub: Walk-in shower Bathroom Toilet: Standard Home Equipment: Rolling walker Other : Home info from EMR review of recent therapy eval at [facility] - pt not able to answer questionsthis date and no family present. Pt not using AD door captain Prior Function Lives With: Spouse (Leelee) [...] problems. Principal Problem: CVA (cerebral vascular accident) ([facility]) * PT/OT/MENTAL HEALTH PROGRAM DIRECTOR - Veronica Rivera OTR/Krishan - 06/19/2025 [...] ADL status, Communication needs, Endurance level Modified Porter Level of Disability: Severe disability 0= No [...] lot Scoring Daily Activity Raw Score: 12 [facility] G Code Modifier: CL Modifed chip [...] Past Medical History: Diagnosis Date Atrial fibrillation ([facility]) BPH (benign prostatic hyperplasia) Broken nose CVA (cerebral vascular accident) ([facility] 06/17/2025 Diabetes ([facility] Epistaxis Hypertension Hyponatremia secondary to SIADH Hypothyroid [...] per early mobility guidelines. Equipment: telemetry, IV Telemetry/Sales Analyst: Yes Oxygen Used: room air Other: fall [...] evaluation Prior Function Lives With: Spouse (lives wt , Leelee.) Other: patient was not able [...] problems. Principal Problem: CVA (cerebral vascular accident) ([facility]) * Discharge Planning Note - Dawson [...] Home with home health services Facility/Service Name [facility] Case discussed in daily transition rounds and chart reviewed by CN. Barriers to discharge include PT/OT, PMR to see, Discharge Plan remains: Home with HHC vs IPR. [facility] will accept. [facility]- will need PT/OT notes as soon [...] Description: INTERVENTIONS: 1. Encourage patient or legal agency service representative to report early pain and ask [...] per policy 9. Teach patient or legal agency service representative interventions for comforting Outcome: Progressing Note: [...] at the bedside 7. Instruct patient/ patient agency service representative about use of safety devices 8. Include patient/ patient agency service representative in decisions related to safety Outcome: [...] hygiene technique. 7. Identify and instruct patient/patient agency service representative in use of appropriate isolation precautionsfor identified infection/symptoms. 8. Provide and discuss with patient/patient agency service representative on educational MDRO sheet. 9. Encourage and monitor nutritional status daily and consult creeler if indicated. 10. Implement neutropenic guidelines as needed. Outcome: Progressing Note: Evaluation of progress towards goal: Pt should remain free from infection during this shift. Standard precautions used during care. Problem: Knowledge Deficit Goal: Patient/patient agency service representative demonstrates understanding of disease process, treatment [...] be free from fall Description: Interventions: 1. [place] to environment 2. Hourly rounds addressing the [...] non-skid footwear 11. Teach patient and patient agency service representative to maintain environment for safety and [...] (cane, walker) within reach 19. Request patient agency service representative bring adaptive equipment/mobility aids from home or obtain and provide as needed 20. Consult pharmacy regarding effects of med's affecting mobility, cognition, and alternatives 21. Obtain physician order for PT if risk factors associated with mobility are present 22. Obtain physician order for OT as appropriate 23. Utilize diversional activities 24. Educate patient and patient agency service representative how to maintain a safe environment during visitationtimes (notify nurse prior to leaving bedside) 25. Consider appropriateness of medical or non-chief medical technologist 26. Set up voiding schedule as appropriate [...] EDT DISCHARGE PLANNING NOTE Referral sent to [facility] in [place] (P# ; F# ) * Discharge Planning Note - Brianna Verduzco - 06/18/2025 1:04 PM EDT DISCHARGE PLANNING NOTE Referral sent to. [facility] in [place], [place] (P# ; F# ) * Discharge [...] Acute rehab, Home with home health services Director [employer] met with patient, introduced self, and explained role. Patient educated on safe discharge plan. Pt admitted 06/17/2025 with CVA (cerebral vascular accident) ([facility]) [I63.9] per chart review. Consults: Neurology Discharge Barriers per Daily Transition Rounds and chart review: PT/OT, s/p TNK- bedrest, MRi, echo. Past Medical History: Diagnosis Date Atrial fibrillation ([facility]) BPH (benign prostatic hyperplasia) Broken nose CVA (cerebral vascular accident) ([facility]) 06/17/2025 Diabetes ([facility]) Epistaxis Hypertension Hyponatremia secondary to SIADH Hypothyroid [...] patient to appointments, shopping and assisting with project controls scheduler. Caregiver's personal limitations include Patient's feels she [...] vs acute rehab. PCP: TANYA Lozano Pharmacy: [facility] PCP and pharmacy confirmed with patient. CN offered to assist with follow up appointment arrangements; . TANYA Lozano added to Follow Up Providers for Summary of Care communication. Per patient self-report: Drug use: denies Smoking: denies ETOH Use: rarely Current discharge plan is: Home with HHC vs acute rehab pending PT/OT eval. CN spoke with patient'swife she has used [facility] home health in past. Tasked to send referrals to [facility] and to [facility]. Services Requested: Services Requested Patient expects [...] Evaluation of progress towards goal: Home with C Autogenerated Goal Will continue to follow as plan of care develops. CN discussed benefits and importance of medication compliance and follow ups. Please feel free to reach out for any discharge planning questions. - Dawson Yost RN 06/18/25 12:24 PM * PT/OT/MENTAL HEALTH PROGRAM DIRECTOR - Zaire Sierra CCC-MENTAL HEALTH PROGRAM DIRECTOR - 06/18/2025 10:35 AM EDT Speech Therapy Evaluation Bedside Swallow/Feeding Evaluation Speech & Language Cognitive Evaluation Discharge Recommendations for Safe Patient Transition MENTAL HEALTH PROGRAM DIRECTOR Post Discharge Therapy Recommendations: Continue ST [...] decline resulting from CVA. Prognosis Services: Skilled MENTAL HEALTH PROGRAM DIRECTOR services to address above deficits Prognosis/Potential: Good Considerations: Age, Cognition Discharge Recommendations for Safe Patient Transition MENTAL HEALTH PROGRAM DIRECTOR Post Discharge Therapy Recommendations: Continue ST [...] should be further evaluated. Prognosis Services: Skilled MENTAL HEALTH PROGRAM DIRECTOR services to address the above deficits [...] Dysphagia Problem: Swallowing Dates: Start: 06/18/25 Disciplines: MENTAL HEALTH PROGRAM DIRECTOR Goal: STG: Patient will complete safety strategies independently during PO intake 90% of the time Dates: Start: 06/18/25 Expected End: 07/22/25 Disciplines: MENTAL HEALTH PROGRAM DIRECTOR Template: ST - Rehab Speech Problem: Auditory Comprehension Dates: Start: 06/18/25 Disciplines: MENTAL HEALTH PROGRAM DIRECTOR Goal: LTG: Patient will comprehend communication related to basic medical and social needs and utilize compensatory strategies to maintain safety in a functional living environment Dates: Start: 06/18/25 Expected End: 07/22/25 Disciplines: MENTAL HEALTH PROGRAM DIRECTOR Goal: STG: Patient will answer simple yes/no questions with 90% accuracy with minimal cueing. Dates: Start: 06/18/25 Expected End: 07/22/25 Disciplines: MENTAL HEALTH PROGRAM DIRECTOR Goal: STG: Patient will answer complex yes/no questions with 90% accuracy with minimal cueing Dates: Start: 06/18/25 Expected End: 07/22/25 Disciplines: MENTAL HEALTH PROGRAM DIRECTOR Problem: Verbal Expression Dates: Start: 06/18/25 Disciplines: MENTAL HEALTH PROGRAM DIRECTOR Goal: LTG: Patient will utilize compensatory strategies to communicate wants and needs effectively to different conversational partners, maintain safety and participate socially in a functional living environment Dates: Start: 06/18/25 Expected End: 07/22/25 Disciplines: MENTAL HEALTH PROGRAM DIRECTOR Goal: STG: Patient will complete simple to complex divergent and convergent naming tasks with 90% accuracy with minimal cueing to improve thought organization Dates: Start: 06/18/25 Expected End: 07/22/25 Disciplines: MENTAL HEALTH PROGRAM DIRECTOR Goal: STG: Patient will use word retrieval strategies during structured interactions to improve functional communication during activities of daily living with 90% accuracy with minimal cueing Dates: Start: 06/18/25 Expected End: 07/22/25 Disciplines: MENTAL HEALTH PROGRAM DIRECTOR Speech Therapy Care Plan (Resolved) There are no resolved problems. Principal Problem: CVA (cerebral vascular accident) ([facility]) * PT/OT/MENTAL HEALTH PROGRAM DIRECTOR - ALVARO Chino/Krishan - 06/18/2025 7:37 AM EDT Occupational Therapy OT Type of Visit: Medical deferral Reason For Medical Deferral: Activity limitations Activity Limitations: Strict bedrest (Per [facility] protocol. Will continue to follow.) * PT/OT/MENTAL HEALTH PROGRAM DIRECTOR - Dana Campos PT - 06/18/2025 7:28 AM EDT [...] Description: INTERVENTIONS: 1. Encourage patient or legal agency service representative to report early pain and ask [...] per policy 9. Teach patient or legal agency service representative interventions for comforting Outcome: Progressing Note: [...] at the bedside 7. Instruct patient/ patient agency service representative about use of safety devices 8. Include patient/ patient agency service representative in decisions related to safety Outcome: [...] hygiene technique. 7. Identify and instruct patient/patient agency service representative in use of appropriate isolation precautionsfor identified infection/symptoms. 8. Provide and discuss with patient/patient agency service representative on educational MDRO sheet. 9. Encourage and monitor nutritional status daily and consult creeler if indicated. 10. Implement neutropenic guidelines as needed. Outcome: Progressing Note: Evaluation of progress towards goal: Labs and vitals monitored as ordered. Medications administered as ordered. Patient remains free from infection at this time. Problem: Moderate - High Risk Fall Score Description: Valenzuela Fall Score of =/> 25 or indicated by [facility] Assessment Goal: Patient should be free from fall Description: Interventions: 1. [place] to environment 2. Hourly rounds addressing the [...] non-skid footwear 11. Teach patient and patient agency service representative to maintain environment for safety and [...] (cane, walker) within reach 19. Request patient agency service representative bring adaptive equipment/mobility aids from home or obtain and provide as needed 20. Consult pharmacy regarding effects of med's affecting mobility, cognition, and alternatives 21. Obtain physician order for PT if risk factors associated with mobility are present 22. Obtain physician order for OT as appropriate 23. Utilize diversional activities 24. Educate patient and patient agency service representative how to maintain a safe environment during visitationtimes (notify nurse prior to leaving bedside) 25. Consider appropriateness of medical or non-chief medical technologist 26. Set up voiding schedule as appropriate [...] Description: INTERVENTIONS: 1. Encourage patient or legal agency service representative to report early pain and ask [...] per policy 9. Teach patient or legal agency service representative interventions for comforting Outcome: Progressing Note: [...] at the bedside 7. Instruct patient/ patient agency service representative about use of safety devices 8. Include patient/ patient agency service representative in decisions related to safety Outcome: [...] hygiene technique. 7. Identify and instruct patient/patient agency service representative in use of appropriate isolation precautionsfor identified infection/symptoms. 8. Provide and discuss with patient/patient agency service representative on educational MDRO sheet. 9. Encourage and monitor nutritional status daily and consult creeler if indicated. 10. Implement neutropenic guidelines as needed. Outcome: Progressing Note: Evaluation of progress towards goal: Patient remains free from signs of infection at this time. Will continue to monitor. Problem: Knowledge Deficit Goal: Patient/patient agency service representative demonstrates understanding of disease process, treatment [...] Score of =/> 25 or indicated by [facility] Assessment Goal: Patient should be free from fall Description: Interventions: 1. [place] to environment 2. Hourly rounds addressing the [...] non-skid footwear 11. Teach patient and patient agency service representative to maintain environment for safety and [...] (cane, walker) within reach 19. Request patient agency service representative bring adaptive equipment/mobility aids from home or obtain and provide as needed 20. Consult pharmacy regarding effects of med's affecting mobility, cognition, and alternatives 21. Obtain physician order for PT if risk factors associated with mobility are present 22. Obtain physician order for OT as appropriate 23. Utilize diversional activities 24. Educate patient and patient agency service representative how to maintain a safe environment during visitationtimes (notify nurse prior to leaving bedside) 25. Consider appropriateness of medical or non-chief medical technologist 26. Set up voiding schedule as appropriate [...] for today 06/23/25 at 1 PM to [facility]. Confirmed in [facility]. [facility]08-10-2025 Progress note* Discharge Planning Note - CHARLES Lee - 06/23/2025 10:39 AM EDT DISCHARGE PLANNING NOTE Discharge written, CRF complete. Social work task CN to arrange BLS transport- wait confirmed time. [facility] notified of discharge and CRF sent. HENS submitted. is aware and agreeable to transition plan. RN updated. - CHARLES LEE 06/23/25 10:42 AM [facility]08-10-2025 Hospital course Narrative* Erika Crisostomo MD - 06/23/2025 10:30 AM EDT Images from the original note were not included. [facility]- Hospital Medicine Discharge Summary Patient's Name: Dariel Zabala Date of : 1940 Age: 85 yrs Gender: male PCP: Patient Care Team: TANYA Lozano as PCP - General (Family Medicine) DATE OF ADMISSION: 06/17/2025 DATE OF DISCHARGE: 06/23/2025 DISCHARGE DIAGNOSES: Active Hospital Problems Diagnosis Date Noted CVA (cerebral vascular accident) ([facility]) 06/17/2025 Resolved Problems No resolved [...] in his anticoagulation Patient was discharged to shelter facility at a stable condition Discharge Medications: [...] total) by mouth in the morning. coenzyme [id number] E 100-5 mg-unit capsule Take 100 mg [...] Your Medications These medications were sent to [facility]/pharmacy #[id number] [place] [id number] apixaban 5 mg tablet midodrine 5 mg [...] Extra Tubes. Procedure Abnormality Status --------- ------ Ariagora Top[[id number]] Final result Please view results for these tests on the individual orders. La Cartoonerieender Top Collection Time: 06/22/25 5:40 AM Result [...] results found. Discharge Instructions Disposition: Discharge to shelter facility Condition: Stable Activity: activity as tolerated Diet: Adult diet Regular Texture; Fluid Restriction 1800 mL Adult diet Yanique Mcneill, SOLAR PHOTOVOLTAIC SYSTEMS ENGINEER-CAUSTIC PREPARER [address] [place] [address] Follow up Information Provided to the Patient: Patient given copy of Discharge Instructions, patient hospital stay was discussed. No special instructions. I have spent 35 minutes coordinating and preparing this discharge. I have discussed the patient's hospitalization course, treatment plan and follow up instructions with patient and . I have answered all the patient's questions. Electronically signed by: ERIKA CRISOSTOMO MD [facility], Department of Internal Medicine 06/23/25 1:57 [...] PLATELETS X10E9/L 234 212 189 204 200 @RESUFAST(IRON,TIBC,FERRITIN,IRONSAT,FOLATE,[id number]))@ Results from last 7 days Lab Units [...] parameters to maintain systolic blood pressure more [id number] and less than 120. 4. Atrial fibrillation: [...] For questions please call: Answering Service at [phone] Or Office at [phone] This note was created with the assistance of a speech-recognition program. Although the intention is to generate a document that actually reflects the content of the visit, no guarantees can be provided that every mistake has been identified and corrected by editing. * Erika Crisostomo MD - 06/22/2025 12:57 PM EDT Images from the original note were not included. [facility] 06/22/2025 Patient [...] Tubes. Procedure Abnormality Status --------- ------ Lavender Top[[id number]] Final result Please view results for these [...] Units 06/22/25 0221 06/21/25 0758 06/20/25 0844 06/19/25 0718 06/18/25 1528 06/18/25 0343 WBC x10E9/L 5.6 5.3 6.5 7.9 -- 5.4 HEMOGLOBIN g/dL 12.5* 14.1 13.3 13.4 13.9 12.7* HEMATOCRIT % 36.3* 40.7 38.1* 38.7* -- 36.0* PLATELETS X10E9/L 212 189 204 200 214 251 @RESUFAST(IRON,TIBC,FERRITIN,IRONSAT,FOLATE,[id number]))@ Results from last 7 days Lab Units [...] For questions please call: Answering Service at [phone] Or Office at [phone] This note was created with the assistance [...] clinical progress daily. Griselda Ramirez PharmD Ext [phone] * Erika Crisostomo MD - 06/21/2025 3:47 PM EDT Images from the original note were not included. [facility] Progress Note 06/21/2025 Patient Name: [...] Tubes. Procedure Abnormality Status --------- ------ Lavender Top[[id number]] Final result Please view results for these [...] QUESTIONS FEEL FREE TO CALL: 1. OFFICE [phone] 2. ANSWERING SERVICE:[phone] YOU CAN CONTACT ME THROUGH [employer] DURING THE DAYTIME HOURS, IF NO RESPONSE AFTER 5 MINUTES CALL THE ANSWERING SERVICE This note was created with the assistance of a speech-recognition program. Although the intention is to generate a document that actually reflects the content of the visit, no guarantees can be provided that every mistake has been identified and corrected by editing. * Vinh Andre RPH - 06/21/2025 9:56 AM EDT Pharmacokinetic Consult [...] reportedly received TNK prior to arrival to [facility], heparin infusion bridge Drug-disease Interactions: - Could [...] patient's clinical progress daily. Vinh Andre, PharmD, [facility] [id number] * Myrtle Jacome MD - 06/21/2025 7:52 AM EDT Physical Medicine and Rehabilitation Daily Progress Note Today's Date and Time: 06/21/2025, 7:53 AM Subjective/Chief complaint: CVA (cerebral vascular accident) ([facility]) Principal Problem: CVA (cerebral vascular accident) (CMS-HCC) [...] Problem List Diagnosis CVA (cerebral vascular accident) ([facility]) Encephalopathy Recommendations/Plan: Continue PT, OT Max assist x2 bed mobility Family education Coumadin for AFib Consider shelter facility Will follow up with you for rehab needs Myrtle Jacome MD * Noreen Myers [facility] - 06/20/2025 10:20 AM EDT Pharmacokinetic [...] clinical progress daily. Noreen Myers RPH Ext [phone] * Pat Araiza RN - 06/19/2025 8:52 PM EDT Images from the original note were not included. FOLLOW-UP: Post-Intensive Care Rounding Note Patient: Dariel Zabala : 1940 Age: 85 y.o. Length of Stay: 2 days Admission Diagnosis: CVA (cerebral vascular accident) ([facility]) [I63.9] Reviewing patient due to his recent transfer out from Intensive Care. Recorded vital signs are stable and the patient is not noted to be in any apparent distress. Telemetry and monitoring noted. Staff may call with any issues or concerns regarding his clinical presentation or stability. Thank you, Pat Araiza RN Rapid Response: [facility] * Rahat Mallory RPH - 06/19/2025 [...] days Admission Diagnosis: CVA (cerebral vascular accident) ([facility]) [I63.9] Reviewing patient due to his recent transfer out from Intensive Care. Recorded vital signs are stable and the patient is not noted to be in any apparent distress. Telemetry and monitoring noted. Staff may call with any issues or concerns regarding his clinical presentation or stability. Thank you, JOSSELYN LARA RN Rapid Response: [facility] * Pat Araiza RN - 06/18/2025 8:32 PM EDT Images from the original note were not included. FOLLOW-UP: Post-Intensive Care Rounding Note Patient: Dariel Zabala DOB: 1940 Age: 85 y.o. Length of Stay: 1 days Admission Diagnosis: CVA (cerebral vascular accident) ([facility]) [I63.9] Reviewing patient due to his recent transfer out from Intensive Care. Recorded vital signs are stable and the patient is not noted to be in any apparent distress. Telemetry and monitoring noted. Staff may call with any issues or concerns regarding his clinical presentation or stability. Thank you, Pat Araiza RN Rapid Response: [facility] Plan of care note * Plan of Care - Yonathan Joy RN - 06/23/2025 6:29 AM EDT Problem: Pain Goal: Patient goal is pain score less than 4, able to rest, and participant in treatment plan as appropriate Description: INTERVENTIONS: 1. Encourage patient or legal agency service representative to report early pain and ask [...] per policy 9. Teach patient or legal agency service representative interventions for comforting 06/23/2025 0628 by [...] at the bedside 7. Instruct patient/ patient agency service representative about use of safety devices 8. Include patient/ patient agency service representative in decisions related to safety Outcome: [...] hygiene technique. 7. Identify and instruct patient/patient agency service representative in use of appropriate isolation precautionsfor identified infection/symptoms. 8. Provide and discuss with patient/patient agency service representative on educational MDRO sheet. 9. Encourage and monitor nutritional status daily and consult creeler if indicated. 10. Implement neutropenic guidelines as needed. Outcome: Progressing Note: Evaluation of progress towards goal: Standard precaution maintained Problem: Knowledge Deficit Goal: Patient/patient agency service representative demonstrates understanding of disease process, treatment [...] supplement as ordered 13. Collaborate with clinical creeler 14. Include patient/ patient's agency service representative in decisions related to nutrition Outcome: [...] develop effective communication strategies 4. Include patient/patient agency service representative in decisions related to communication Outcome: [...] Collaborate with ancillary departments 14. Include patient/patient agency service representative in decisions related to anxiety Outcome: [...] care 6. Collaborate with pastoral/spiritual care, social welfare clerk, mental health counselor as needed. 7. Instruct patient on diversional activities such as physical activity, distraction, and deep breathing exercises to assist with coping 8. Involve patient's agency service representative in care Outcome: Progressing Note: Evaluation [...] Score of =/> 25 or indicated by [facility] Assessment Goal: Patient should be free from fall Description: Interventions: 1. [place] to environment 2. Hourly rounds addressing the [...] non-skid footwear 11. Teach patient and patient agency service representative to maintain environment for safety and [...] (cane, walker) within reach 19. Request patient agency service representative bring adaptive equipment/mobility aids from home or obtain and provide as needed 20. Consult pharmacy regarding effects of med's affecting mobility, cognition, and alternatives 21. Obtain physician order for PT if risk factors associated with mobility are present 22. Obtain physician order for OT as appropriate 23. Utilize diversional activities 24. Educate patient and patient agency service representative how to maintain a safe environment during visitationtimes (notify nurse prior to leaving bedside) 25. Consider appropriateness of medical or non-chief medical technologist 26. Set up voiding schedule as appropriate (every 2 hours) Outcome: Progressing Note: Evaluation of progress towards goal: Fall bundles maintained [facility] [id number] Consult note* Kaye Goel MD - 06/22/2025 4:04 PM EDTAssociated Order(s): IP CONSULT TO CARDIOLOGY Images from the original note were not included. [facility] [address] [place] [address] HISTORY & PHYSICAL / CONSULT NOTE Dariel Zabala PCP: TANYA Lozano Date of Admission: 06/17/2025 Date of Consultation: 06/22/2025 4:05 PM Consult for atrial fibrillation, bradycardia, intermittent pauses SUBJECTIVE History of Present Illness: Dariel Zabala is a 85 y.o. male w/ PMH RUFINO s/p R CEA, DMII, HLD, hypothyroidism, HTN, SIADH, recent TIA 05/2025, and permanent atrial fibrillation w/ [id number] 7 on warfarin who presented 06/17/25 with RLE weakness and aphasia. He received TNK at OSH for R P1/P2 occlusion and subsequently transferred to [facility]. Head imaging w/o acute infarct, but did [...] Past Medical History: Diagnosis Date Atrial fibrillation ([facility]) BPH (benign prostatic hyperplasia) Broken nose CVA (cerebral vascular accident) ([facility] 06/17/2025 Diabetes ([facility]) Epistaxis Hypertension Hyponatremia secondary to SIADH Hypothyroid [...] 100 mL IVPB 3,000 mg intravenous PRN Tyo Baez MD calcium gluconate 4,000 mg in [...] intravenous PRN Rocio Davis MD heparin infusion 87870 units/500 mL in 0.45% NaCl (50 units/mL [...] tablet 5 mg 5 mg oral Nightly oRcio Davis MD 5 mg at 06/21/252030 sodium [...] Yes Not In System Ref Prov coenzyme L67-boqnhnp E 100-5 mg-unit capsule Take 100 mg [...] last 7 days Lab Units 06/22/25 0542 06/22/2521906/21/25192406/21/25 1314 06/21/25 0758 06/20/25 1238 06/20/25 0844 06/19/25192606/19/2571706/18/25 1528 06/18/25 0343 06/17/25 1653 SODIUM mmol/L [...] 15206/17/25 1653 MAGNESIUM mg/dL 2.3 1.6* 1.7* D [...] Extremities: No edema ASSESSMENT Permanent atrial fibrillation, [id number] 8, on heparin gtt/warfarin L CVA s/p [...] This note was completed using a voice dining room attendant system. Every effort was made to ensure accuracy. However, inadvertent computerized dining room attendant errors may be present. [facility] Work Phone: [phone] Consult note* Kaye Goel MD - 06/22/2025 4:04 PM EDTAssociated Order(s): IP CONSULT TO CARDIOLOGY Images from the original note were not included. [facility] [address] [place] [address] HISTORY & PHYSICAL / CONSULT NOTE Dariel Zabala PCP: TANYA Lozano Date of Admission: 06/17/2025 Date of Consultation: 06/22/2025 4:05 PM Consult for atrial fibrillation, bradycardia, intermittent pauses SUBJECTIVE History of Present Illness: Dariel Valeriano Zabala is a 85 y.o. male w/ PMH RUFINO s/p R CEA, DMII, HLD, hypothyroidism, HTN, SIADH, recent TIA 05/2025, and permanent atrial fibrillation w/ [id number] 7 on warfarin who presented 06/17/25 with RLE weakness and aphasia. He received TNK at OSH for R P1/P2 occlusion and subsequently transferred to [facility]. Head imaging w/o acute infarct, but did [...] Past Medical History: Diagnosis Date Atrial fibrillation ([facility]) BPH (benign prostatic hyperplasia) Broken nose CVA (cerebral vascular accident) ([facility]) 06/17/2025 Diabetes ([facility]) Epistaxis Hypertension Hyponatremia secondary to SIADH Hypothyroid [...] intravenous PRN Rocio Davis MD heparin infusion 23220 units/500 mL in 0.45% NaCl (50 units/mL [...] Yes Not In System Ref Prov coenzyme F41-wldgdiw E 100-5 mg-unit capsule Take 100 mg [...] Extremities: No edema ASSESSMENT Permanent atrial fibrillation, [id number] 8, on heparin gtt/warfarin L CVA s/p [...] This note was completed using a voice dining room attendant system. Every effort was made to ensure accuracy. However, inadvertent computerized dining room attendant errors may be present. * Richa Beyer MD - 06/20/2025 1:56 PM EDTAssociated Order(s): IP CONSULT TO PHYSICAL MEDICINE REHAB Images from the original note were not included. PHYSICAL MEDICINE AND REHABILITATION CONSULT Date of Admission: 06/17/2025 1:38 PM Referring Physician: Mirian Carranza MD PCP: TANYA Lozano Chief Compliant: Principal Problem: CVA (cerebral vascular accident) ([facility]) Reason for Consultation: Rehabilitation [facility]/Services Consulting Providers Provider Service Specialty [...] given to the patient and transferred to [facility]. CT perfusion study showed deficit in anterior [...] Past Medical History: Diagnosis Date Atrial fibrillation ([facility]) BPH (benign prostatic hyperplasia) Broken nose CVA (cerebral vascular accident) ([facility]) 06/17/2025 Diabetes ([facility]) Epistaxis Hypertension Hyponatremia secondary to SIADH Hypothyroid [...] of function: Prior Function Lives With: Spouse () (06/19/25 1410) Level of Mobility: Independent with [...] End: 06:30 06/20/2025 This is a standard [facility] EEG monitoring reportusing scalp and ear [...] or primary neurological disorders. Yaquelin Esparza MD Engineer First Assistant Neurology/Neurophysiology [facility] Recent Results (from [...] Tubes. Procedure Abnormality Status --------- ------ PST TOP[[id number]] Final result Please view results for these [...] Assessment/Plan Principal Problem: CVA (cerebral vascular accident) ([facility]) MRI is negative for ischemia [...] by mouth in the morning. Taking coenzyme N69-gsmaxzl E 100-5 mg-unit capsule Take 100 mg [...] Lab Units 06/20/25 0844 06/20/25 0042 06/19/257 06/19/25 0718 06/18/25 1528 06/18/25 0343 06/17/25 [...] 7 days Lab Units 06/20/25 0844 06/19/2571706/18/25 1528 06/18/25 0343 WBC x10E9/L 6.5 7.9 [...] anticoagulation MAISHA VERGARA MD [facility]Y [facility] ANY QUESTIONS FEEL FREE TO CALL: 1. OFFICE [phone] 2. ANSWERING SERVICE:[phone] YOU CAN CONTACT ME THROUGH [employer] DURING THE DAYTIME HOURS, IF [...] Description: INTERVENTIONS: 1. Encourage patient or legal agency service representative to report early pain and ask [...] per policy 9. Teach patient or legal agency service representative interventions for comforting Outcome: Progressing Note: [...] at the bedside 7. Instruct patient/ patient agency service representative about use of safety devices 8. Include patient/ patient agency service representative in decisions related to safety Outcome: [...] hygiene technique. 7. Identify and instruct patient/patient agency service representative in use of appropriate isolation precautionsfor identified infection/symptoms. 8. Provide and discuss with patient/patient agency service representative on educational MDRO sheet. 9. Encourage and monitor nutritional status daily and consult creeler if indicated. 10. Implement neutropenic guidelines as needed. Outcome: Progressing Note: Evaluation of progress towards goal: continue to monitor labs, vitals, tele, IV site Problem: Knowledge Deficit Goal: Patient/patient agency service representative demonstrates understanding of disease process, treatment [...] supplement as ordered 13. Collaborate with clinical creeler 14. Include patient/ patient's agency service representative in decisions related to nutrition Outcome: [...] develop effective communication strategies 4. Include patient/patient agency service representative in decisions related to communication Outcome: Progressing Note: Evaluation of progress towards goal: [place], speak loudly and understands Problem: Potential for [...] Collaborate with ancillary departments 14. Include patient/patient agency service representative in decisions related to anxiety Outcome: [...] care 6. Collaborate with pastoral/spiritual care, social welfare clerk, mental health counselor as needed. 7. Instruct patient on diversional activities such as physical activity, distraction, and deep breathing exercises to assist with coping 8. Involve patient's agency service representative in care Outcome: Progressing Note: Evaluation [...] Progressing Note: Evaluation of progress towards goal: [facility] [place] Problem: Moderate - High Risk Fall Score Description: Valenzuela Fall Score of =/> 25 or indicated by [facility] Assessment Goal: Patient should be free from fall Description: Interventions: 1. [place] to environment 2. Hourly rounds addressing the [...] non-skid footwear 11. Teach patient and patient agency service representative to maintain environment for safety and [...] (cane, walker) within reach 19. Request patient agency service representative bring adaptive equipment/mobility aids from home or obtain and provide as needed 20. Consult pharmacy regarding effects of med's affecting mobility, cognition, and alternatives 21. Obtain physician order for PT if risk factors associated with mobility are present 22. Obtain physician order for OT as appropriate 23. Utilize diversional activities 24. Educate patient and patient agency service representative how to maintain a safe environment during visitationtimes (notify nurse prior to leaving bedside) 25. Consider appropriateness of medical or non-chief medical technologist 26. Set up voiding schedule as appropriate (every 2 hours) Outcome: Progressing Note: Evaluation of progress towards goal: no falls; syncopal episode per notes 06/21; up with assistonly; high fall risk - maintain precautions [facility]08-09-2025 Progress note* Discharge Planning Note - Norma Ritter - 06/22/2025 12:42 PM EDT DISCHARGE PLANNING NOTE Prior Auth approved for admission to : [facility] (P# [phone] ; F# ) Approval # [id number] Valid for Dates: 06/22/2025 - 06/28/2025 [facility]08-09-2025 Progress note* Discharge Planning Note - Norma Ritter - 06/22/2025 10:39 AM EDT DISCHARGE PLANNING NOTE Prior auth submitted to: [facility] Medicare Via: Availity On behalf of : [facility] (P# ; F# ) Ref# [id number] Medcurrent [id number] Progress note* Discharge Planning Note - CHARLES Lee - 06/22/2025 10:15 AM EDT DISCHARGE PLANNING NOTE Case discussed in daily transition rounds and chart reviewed by CN. Discharge Plan remains: [facility]. [facility] accepting referral. Social work contacted to inform of above and she was pleased with the news. is looking for patient's SSN. Social work task [facility] to start precert. CN will continue to follow and is available should any further needs arise. - CHARLES LEE 06/22/25 10:15 AM Insurance approved SNF stay. Patient is tentatively discharged tomorrow. Social work sent a messageto [facility] to inform of tentative discharge date. Social work contacted to inform of above and she is agreeable to transition plan. HENS started. - CHARLES LEE 06/22/25 2:54 PM [facility] [id number] Plan of care note* Plan of Care - Yonathan Joy RN - 06/22/2025 3:45 AM EDT Problem: Pain Goal: Patient goal is pain score less than 4, able to rest, and participant in treatment plan as appropriate Description: INTERVENTIONS: 1. Encourage patient or legal agency service representative to report early pain and ask [...] per policy 9. Teach patient or legal agency service representative interventions for comforting Outcome: Progressing Note: [...] at the bedside 7. Instruct patient/ patient agency service representative about use of safety devices 8. Include patient/ patient agency service representative in decisions related to safety Outcome: [...] hygiene technique. 7. Identify and instruct patient/patient agency service representative in use of appropriate isolation precautionsfor identified infection/symptoms. 8. Provide and discuss with patient/patient agency service representative on educational MDRO sheet. 9. Encourage and monitor nutritional status daily and consult creeler if indicated. 10. Implement neutropenic guidelines as needed. Outcome: Progressing Note: Evaluation of progress towards goal: Pt has no s/s of infection, standard precaution maintained Problem: Knowledge Deficit Goal: Patient/patient agency service representative demonstrates understanding of disease process, treatment [...] supplement as ordered 13. Collaborate with clinical creeler 14. Include patient/ patient's agency service representative in decisions related to nutrition Outcome: [...] develop effective communication strategies 4. Include patient/patient agency service representative in decisions related to communication Outcome: [...] Collaborate with ancillary departments 14. Include patient/patient agency service representative in decisions related to anxiety Outcome: [...] care 6. Collaborate with pastoral/spiritual care, social welfare clerk, mental health counselor as needed. 7. Instruct patient on diversional activities such as physical activity, distraction, and deep breathing exercises to assist with coping 8. Involve patient's agency service representative in care Outcome: Progressing Note: Evaluation [...] Moderate - High Risk Fall Score Description: Hudgins Fall Score of =/> 25 or indicated by [facility] Assessment Goal: Patient should be free from fall Description: Interventions: 1. [place] to environment 2. Hourly rounds addressing the [...] non-skid footwear 11. Teach patient and patient agency service representative to maintain environment for safety and [...] (cane, walker) within reach 19. Request patient agency service representative bring adaptive equipment/mobility aids from home or obtain and provide as needed 20. Consult pharmacy regarding effects of med's affecting mobility, cognition, and alternatives 21. Obtain physician order for PT if risk factors associated with mobility are present 22. Obtain physician order for OT as appropriate 23. Utilize diversional activities 24. Educate patient and patient agency service representative how to maintain a safe environment during visitationtimes (notify nurse prior to leaving bedside) 25. Consider appropriateness of medical or non-chief medical technologist 26. Set up voiding schedule as appropriate (every 2 hours) Outcome: Progressing Note: Evaluation of progress towards goal: Fall bundles maintained [facility]08-08-2025 Plan of care note* Plan of Care - Lauren Gaona RN - 06/21/2025 6:18 PM EDT Problem: Knowledge Deficit Goal: Patient/patient agency service representative demonstrates understanding of disease process, treatment [...] for adl's Problem: Knowledge Deficit Goal: Patient/patient agency service representative demonstrates understanding of disease process, treatment [...] Description: INTERVENTIONS: 1. Encourage patient or legal agency service representative to report early pain and ask [...] per policy 9. Teach patient or legal agency service representative interventions for comforting Outcome: Progressing Note: [...] at the bedside 7. Instruct patient/ patient agency service representative about use of safety devices 8. Include patient/ patient agency service representative in decisions related to safety Outcome: [...] hygiene technique. 7. Identify and instruct patient/patient agency service representative in use of appropriate isolation precautionsfor identified infection/symptoms. 8. Provide and discuss with patient/patient agency service representative on educational MDRO sheet. 9. Encourage and monitor nutritional status daily and consult creeler if indicated. 10. Implement neutropenic guidelines as [...] supplement as ordered 13. Collaborate with clinical creeler 14. Include patient/ patient's agency service representative in decisions related to nutrition Outcome: [...] develop effective communication strategies 4. Include patient/patient agency service representative in decisions related to communication Outcome: [...] Collaborate with ancillary departments 14. Include patient/patient agency service representative in decisions related to anxiety Outcome: [...] care 6. Collaborate with pastoral/spiritual care, social welfare clerk, mental health counselor as needed. 7. Instruct patient on diversional activities such as physical activity, distraction, and deep breathing exercises to assist with coping 8. Involve patient's agency service representative in care Outcome: Progressing Note: Evaluation [...] Moderate - High Risk Fall Score Description: Hudgins Fall Score of =/> 25 or indicated by [facility] Assessment Goal: Patient should be free from fall Description: Interventions: 1. [place] to environment 2. Hourly rounds addressing the [...] non-skid footwear 11. Teach patient and patient agency service representative to maintain environment for safety and [...] (cane, walker) within reach 19. Request patient agency service representative bring adaptive equipment/mobility aids from home or obtain and provide as needed 20. Consult pharmacy regarding effects of med's affecting mobility, cognition, and alternatives 21. Obtain physician order for PT if risk factors associated with mobility are present 22. Obtain physician order for OT as appropriate 23. Utilize diversional activities 24. Educate patient and patient agency service representative how to maintain a safe environment during visitationtimes (notify nurse prior to leaving bedside) 25. Consider appropriateness of medical or non-chief medical technologist 26. Set up voiding schedule as appropriate [...] Description: INTERVENTIONS: 1. Encourage patient or legal agency service representative to report early pain and ask [...] per policy 9. Teach patient or legal agency service representative interventions for comforting Outcome: Progressing Note: [...] at the bedside 7. Instruct patient/ patient agency service representative about use of safety devices 8. Include patient/ patient agency service representative in decisions related to safety Outcome: [...] hygiene technique. 7. Identify and instruct patient/patient agency service representative in use of appropriate isolation precautionsfor identified infection/symptoms. 8. Provide and discuss with patient/patient agency service representative on educational MDRO sheet. 9. Encourage and monitor nutritional status daily and consult creeler if indicated. 10. Implement neutropenic guidelines as [...] supplement as ordered 13. Collaborate with clinical creeler 14. Include patient/ patient's agency service representative in decisions related to nutrition Outcome: [...] develop effective communication strategies 4. Include patient/patient agency service representative in decisions related to communication Outcome: [...] Collaborate with ancillary departments 14. Include patient/patient agency service representative in decisions related to anxiety Outcome: [...] care 6. Collaborate with pastoral/spiritual care, social welfare clerk, mental health counselor as needed. 7. Instruct patient on diversional activities such as physical activity, distraction, and deep breathing exercises to assist with coping 8. Involve patient's agency service representative in care Outcome: Progressing Note: Evaluation [...] Score of =/> 25 or indicated by [facility] Assessment Goal: Patient should be free from fall Description: Interventions: 1. [place] to environment 2. Hourly rounds addressing the [...] non-skid footwear 11. Teach patient and patient agency service representative to maintain environment for safety and [...] (cane, walker) within reach 19. Request patient agency service representative bring adaptive equipment/mobility aids from home or obtain and provide as needed 20. Consult pharmacy regarding effects of med's affecting mobility, cognition, and alternatives 21. Obtain physician order for PT if risk factors associated with mobility are present 22. Obtain physician order for OT as appropriate 23. Utilize diversional activities 24. Educate patient and patient agency service representative how to maintain a safe environment during visitationtimes (notify nurse prior to leaving bedside) 25. Consider appropriateness of medical or non-chief medical technologist 26. Set up voiding schedule as appropriate (every 2 hours) Outcome: Progressing Note: Evaluation of progress towards goal: free of fall this shift Problem: Pain Goal: Patient goal is pain score less than 4, able to rest, and participant in treatment plan as appropriate Description: INTERVENTIONS: 1. Encourage patient or legal agency service representative to report early pain and ask [...] per policy 9. Teach patient or legal agency service representative interventions for comforting Outcome: Progressing Note: [...] at the bedside 7. Instruct patient/ patient agency service representative about use of safety devices 8. Include patient/ patient agency service representative in decisions related to safety Outcome: [...] at the bedside 7. Instruct patient/ patient agency service representative about use of safety devices 8. Include patient/ patient agency service representative in decisions related to safety Outcome: [...] hygiene technique. 7. Identify and instruct patient/patient agency service representative in use of appropriate isolation precautionsfor identified infection/symptoms. 8. Provide and discuss with patient/patient agency service representative on educational MDRO sheet. 9. Encourage and monitor nutritional status daily and consult creeler if indicated. 10. Implement neutropenic guidelines as [...] supplement as ordered 13. Collaborate with clinical creeler 14. Include patient/ patient's agency service representative in decisions related to nutrition Outcome: [...] develop effective communication strategies 4. Include patient/patient agency service representative in decisions related to communication Outcome: [...] as caffeine and (more content not included)... [facility]08-08-2025 Progress note* Discharge Planning Note - Martina Mckeon - 06/21/2025 3:45 PM EDT DISCHARGE PLANNING NOTE Referral sent to [facility] (P# ; F# ) [facility]08-08-2025 Progress note* Discharge [...] Disposition SNF Facility/Service Name NA SNF Name [facility] Does the patient need discharge transportation arranged? Yes Transportation Arranged Ambulance Mobility issues discussed with transportation provider Yes Patient choice offered Yes List Provided Yes CarePort List Provided Long-Term Facility Financial Disclosure Provided for In-Network Referral Yes DISCHARGE PLANNING NOTE CN spoke w pts , SNF choice is [facility]. She did n ot have a 2nd choice. CN asked her to review list for dditional choices. CN tasked for referral to [facility]. Barriers: SNFaccept. Will need precert. CTbrain.Rohini Mcintyre [...] for pts . Pt not appropriate for [facility]. Need SNF choices. CN also sent SNF list Via careport to pts cell phone to select choices. Await response. Rohini Mcintyre RN [facility]08-08-2025 Progress note* PT/OT/MENTAL HEALTH PROGRAM DIRECTOR - ALVARO Enriquez/Krishan - 06/21/2025 9:58 AM EDT Occupational Therapy Re-Evaluation Discharge Recommendations for Safe Patient Transition Discharge Recommendations: Post acute - moderate Post Acute Moderate Rehab Needs: Recommend moderate intensity rehab, Tolerate 1- 2 hrs of therapy 3-5 days/wk, Subacute or chronic functional impairment Current Impairments Informing Therapy Recommendation: Ambulation status/safety, Cognition, Fall risk, ADL status, Endurance level, Communication needs Modified Porter Level of Disability: Moderately severe disability 0= [...] on coumadin and diabetic. Continue to recommend shelter facility. Patient with episode of decreased responsiveness with listing to the left while on commode for 1-2 minutes. Once alert patient was nauseated. Lauren KHAN called to room. Patient assisted from tomeme gomes and MD in room. See below for past medical and past surgical history. Past Medical History: Diagnosis Date Atrial fibrillation ([facility] BPH (benign prostatic hyperplasia) Broken nose CVA (cerebral vascular accident) ([facility]) 06/17/2025 Diabetes ([facility]) Epistaxis Hypertension Hyponatremia secondary to SIADH Hypothyroid [...] Equipment: waker, chair alarm, gait belt, telemetry. Telemetry/Sales Analyst: Yes Oxygen Used: room air Other: (S) [...] Patient will perform toilet transfers with Modified [place] Dates: Start: 06/21/25 Expected End: 07/19/25 Description: [...] problems. Principal Problem: CVA (cerebral vascular accident) ([facility]) [facility]08-08-2025 Progress note* PT/OT/MENTAL HEALTH PROGRAM DIRECTOR - Dana Campos, PT - 06/21/2025 9:56 AM EDT [...] 6 Clicks: Basic Mobility Raw Score: 15 [facility] G Code Modifier: CK SwePASS score [...] Past Medical History: Diagnosis Date Atrial fibrillation ([facility]) BPH (benign prostatic hyperplasia) Broken nose CVA (cerebral vascular accident) ([facility]) 06/17/2025 Diabetes ([facility]) Epistaxis Hypertension Hyponatremia secondary to SIADH Hypothyroid [...] gait belt, wheeled walker, IV, chair/bed alarm Telemetry/Sales Analyst: Yes Oxygen Used: room air Other: (S) [...] problems. Principal Problem: CVA (cerebral vascular accident) ([facility]) [facility]Pal [id number] Nurse Note* Lauren Gaona RN - 06/21/2025 [...] Description: INTERVENTIONS: 1. Encourage patient or legal agency service representative to report early pain and ask [...] per policy 9. Teach patient or legal agency service representative interventions for comforting Outcome: Progressing Note: [...] at the bedside 7. Instruct patient/ patient agency service representative about use of safety devices 8. Include patient/ patient agency service representative in decisions related to safety Outcome: [...] hygiene technique. 7. Identify and instruct patient/patient agency service representative in use of appropriate isolation precautionsfor identified infection/symptoms. 8. Provide and discuss with patient/patient agency service representative on educational MDRO sheet. 9. Encourage and monitor nutritional status daily and consult creeler if indicated. 10. Implement neutropenic guidelines as needed. Outcome: Progressing Note: Evaluation of progress towards goal: No s/s of infection at this time Problem: Knowledge Deficit Goal: Patient/patient agency service representative demonstrates understanding of disease process, treatment [...] Score of =/> 25 or indicated by [facility] Assessment Goal: Patient should be free from fall Description: Interventions: 1. [place] to environment 2. Hourly rounds addressing the [...] non-skid footwear 11. Teach patient and patient agency service representative to maintain environment for safety and [...] (cane, walker) within reach 19. Request patient agency service representative bring adaptive equipment/mobility aids from home or obtain and provide as needed 20. Consult pharmacy regarding effects of med's affecting mobility, cognition, and alternatives 21. Obtain physician order for PT if risk factors associated with mobility are present 22. Obtain physician order for OT as appropriate 23. Utilize diversional activities 24. Educate patient and patient agency service representative how to maintain a safe environment during visitationtimes (notify nurse prior to leaving bedside) 25. Consider appropriateness of medical or non-chief medical technologist 26. Set up voiding schedule as appropriate (every 2 hours) Outcome: Progressing Note: Evaluation of progress towards goal: pt free from fall at this time Problem: Knowledge Deficit Goal: Patient/patient agency service representative demonstrates understanding of disease process, treatment [...] alert and oriented to person and age [facility]08-07-2025 Progress note* Situational Awareness - Gary Coronado MD - 06/20/2025 5:36 PM EDT [facility] Transfer Accept Note I have received a request for transfer of primary service for this patient from the neurology team care of neurology attending, clinical handoff received from Neurology resident. [facility] will assume careas primary team of this patient 7:00 a.m. 06/21/2025. scrible Work Phone: [phone] Plan of care note* Plan of Care [...] also shows no change in renal function. Medcurrent [id number] Consult note* Richa Beyer MD - 06/20/2025 1:56 PM EDTAssociated Order(s): IP CONSULT TO PHYSICAL MEDICINE REHAB Images from the original note were not included. PHYSICAL MEDICINE AND REHABILITATION CONSULT Date of Admission: 06/17/2025 1:38 PM Referring Physician: Mirian Carranza MD PCP: TANYA Lozano Chief Compliant: Principal Problem: CVA (cerebral vascular accident) ([facility]) Reason for Consultation: Rehabilitation Candidacy and Rehab Rooter Operator Physicians/Services Consulting Providers Provider Service Specialty [...] given to the patient and transferred to [facility]. CT perfusion study showed deficit in anterior [...] positivefor - gait disturbance and muscular weakness PM Past Medical History: Diagnosis Date Atrial fibrillation ([facility]) BPH (benign prostatic hyperplasia) Broken nose CVA (cerebral vascular accident) ([facility]) 06/17/2025 Diabetes ([facility]) Epistaxis Hypertension Hyponatremia secondary to SIADH Hypothyroid [...] End: 06:30 06/20/2025 This is a standard [facility] EEG monitoring reportusing scalp and ear [...] or primary neurological disorders. Yaquelin Esparza MD Engineer First Assistant Neurology/Neurophysiology [facility] Recent Results (from [...] Extra Tubes. Procedure Abnormality Status --------- ------ [facility] TOP[[id number]] Final result Please view results for these [...] Assessment/Plan Principal Problem: CVA (cerebral vascular accident) ([facility]) MRI is negative for ischemia [...] you for the referral. Richa Beyer MD [facility] Work Phone: [phone]) 820-696508-07-2025 Progress note* Discharge Planning Note - Rohini Mcintyre RN - 06/20/2025 12:33 PM EDT DISCHARGE PLANNING NOTE Pt will need updated PT/OT notes sent to [facility]. When pt/ot worked w him yesterday they rec SNF, but he was much less alert. Pt doing better today. Therapy will work w him tomorrow morning 06/21to see if IPR appropriate. Barriers: IPR accept, pt/ot to see, precert. Rohini Mcintyre RN [facility]08-07-2025 Consult note* Maisha Vergara MD - 06/20/2025 [...] by mouth in the morning. Taking coenzyme [id number] E 100-5 mg-unit capsule Take 100 mg [...] last 7 days Lab Units 06/20/25 [id number]/18/25 15206/18/25 0343 WBC x10E9/L 6.5 7.9 -- [...] anticoagulation MAISHA VERGARA MD [facility] ANY QUESTIONS FEEL FREE TO CALL: 1. OFFICE [phone] 2. ANSWERING SERVICE:[phone] YOU CAN CONTACT ME THROUGH [employer] SECURE CHAT DURING THE DAYTIME HOURS, IF [...] received a voice mail from Franc at [facility] phone [phone], she says she has left a few messages for an update for patient. This is the only vm I have received. Sending an [employer] chat to Rohini / Vivienne / Mesha with information [facility]08-06-2025 Plan of care note* Plan of Care - Nicole Sparks RN - 06/19/2025 11:13 PM EDT Problem: Pain Goal: Patient goal is pain score less than 4, able to rest, and participant in treatment plan as appropriate Description: INTERVENTIONS: 1. Encourage patient or legal agency service representative to report early pain and ask [...] per policy 9. Teach patient or legal agency service representative interventions for comforting Outcome: Progressing Note: [...] at the bedside 7. Instruct patient/ patient agency service representative about use of safety devices 8. Include patient/ patient agency service representative in decisions related to safety Outcome: [...] hygiene technique. 7. Identify and instruct patient/patient agency service representative in use of appropriate isolation precautionsfor identified infection/symptoms. 8. Provide and discuss with patient/patient agency service representative on educational MDRO sheet. 9. Encourage and monitor nutritional status daily and consult creeler if indicated. 10. Implement neutropenic guidelines as [...] supplement as ordered 13. Collaborate with clinical creeler 14. Include patient/ patient's agency service representative in decisions related to nutrition Outcome: [...] Moderate - High Risk Fall Score Description: [place] Fall Score of =/> 25 or indicated by [facility] Re[facility] Assessment Goal: Patient should be free from fall Description: Interventions: 1. [place] to environment 2. Hourly rounds addressing the [...] non-skid footwear 11. Teach patient and patient agency service representative to maintain environment for safety and [...] (cane, walker) within reach 19. Request patient agency service representative bring adaptive equipment/mobility aids from home or obtain and provide as needed 20. Consult pharmacy regarding effects of med's affecting mobility, cognition, and alternatives 21. Obtain physician order for PT if risk factors associated with mobility are present 22. Obtain physician order for OT as appropriate 23. Utilize diversional activities 24. Educate patient and patient agency service representative how to maintain a safe environment during visitationtimes (notify nurse prior to leaving bedside) 25. Consider appropriateness of medical or non-chief medical technologist 26. Set up voiding schedule as appropriate (every 2 hours) Outcome: Progressing Note: Evaluation of progress towards goal: pt free from fall at this time safety measures in place Medcurrent [id number] Progress note* PT/OT/MENTAL HEALTH PROGRAM DIRECTOR - Dana Campos, PT - 06/19/2025 2:49 PM EDT [...] P1/P2 occlusion. TNK given and transfer to [facility]. On arrival, NIHSS = 0 CT perfusion [...] Past Medical History: Diagnosis Date Atrial fibrillation ([facility]) BPH (benign prostatic hyperplasia) Broken nose CVA (cerebral vascular accident) ([facility]) 06/17/2025 Diabetes ([facility]) Epistaxis Hypertension Hyponatremia secondary to SIADH Hypothyroid Lumbar spondylosis TIA (transient ischemic attack) Past Surgical History: Procedure Laterality Date NECK SURGERY plate in neck per Modified Porter Level of Disability: Severe disability 0= No [...] tolerated Equipment: repositioning sling, IV, bed alarm Telemetry/Sales Analyst: Yes Oxygen Used: room air Other: high [...] with rails Stairs to Enter: [address] draftsperson Rails: Right Stairs in Home: 0 Bathroom Shower/Tub: Walk-in shower Bathroom Toilet: Standard Home Equipment: Rolling walker Other : Home info from EMR review of recent therapy eval at [facility] - pt not able to answer questionsthis date and no family present. Pt not using AD door captain Prior Function Lives With: Spouse (Leelee) [...] problems. Principal Problem: CVA (cerebral vascular accident) ([facility]) [facility] [id number] Progress note* PT/OT/MENTAL HEALTH PROGRAM DIRECTOR - Veronica Rivera OTR/Krishan - 06/19/2025 [...] ADL status, Communication needs, Endurance level Modified Porter Level of Disability: Severe disability 0= No [...] lot Scoring Daily Activity Raw Score: 12 [facility] G Code Modifier: CL Modifed chip [...] Past Medical History: Diagnosis Date Atrial fibrillation ([facility] BPH (benign prostatic hyperplasia) Broken nose CVA (cerebral vascular accident) ([facility]) 06/17/2025 Diabetes ([facility]) Epistaxis Hypertension Hyponatremia secondary to SIADH Hypothyroid [...] per early mobility guidelines. Equipment: telemetry, IV Telemetry/Sales Analyst: Yes Oxygen Used: room air Other: fall [...] problems. Principal Problem: CVA (cerebral vascular accident) ([facility]) [facility]08-06-2025 Nurse Note* Deepali Mathew RN - 06/19/2025 10:55 AM EDT RN concerned as patient is extremely drowsy not following commands or speaking, RN called neuro resident Dr. Davis who states she thinks patient is just tired and will re assess later. Medcurrent [id number] Progress note* Discharge Planning Note - Dawson [...] Home with home health services Facility/Service Name [facility] Case discussed in daily transition rounds and chart reviewed by CN. Barriers to discharge include PT/OT, PMR to see, Discharge Plan remains: Home with [facility] vs IPR. [facility] will accept. [facility]- will need PT/OT notes as soon [...] Description: INTERVENTIONS: 1. Encourage patient or legal agency service representative to report early pain and ask [...] per policy 9. Teach patient or legal agency service representative interventions for comforting Outcome: Progressing Note: [...] at the bedside 7. Instruct patient/ patient agency service representative about use of safety devices 8. Include patient/ patient agency service representative in decisions related to safety Outcome: [...] hygiene technique. 7. Identify and instruct patient/patient agency service representative in use of appropriate isolation precautionsfor identified infection/symptoms. 8. Provide and discuss with patient/patient agency service representative on educational MDRO sheet. 9. Encourage and monitor nutritional status daily and consult creeler if indicated. 10. Implement neutropenic guidelines as needed. Outcome: Progressing Note: Evaluation of progress towards goal: Pt should remain free from infection during this shift. Standard precautions used during care. Problem: Knowledge Deficit Goal: Patient/patient agency service representative demonstrates understanding of disease process, treatment [...] Score of =/> 25 or indicated by [facility] Assessment Goal: Patient should be free from fall Description: Interventions: 1. [place] to environment 2. Hourly rounds addressing the [...] non-skid footwear 11. Teach patient and patient agency service representative to maintain environment for safety and [...] (cane, walker) within reach 19. Request patient agency service representative bring adaptive equipment/mobility aids from home or obtain and provide as needed 20. Consult pharmacy regarding effects of med's affecting mobility, cognition, and alternatives 21. Obtain physician order for PT if risk factors associated with mobility are present 22. Obtain physician order for OT as appropriate 23. Utilize diversional activities 24. Educate patient and patient agency service representative how to maintain a safe environment during visitationtimes (notify nurse prior to leaving bedside) 25. Consider appropriateness of medical or non-chief medical technologist 26. Set up voiding schedule as appropriate (every 2 hours) Outcome: Progressing Note: Evaluation of progress towards goal: Pt should remain free from fall during this shift. Bed in lowest position and locked, side rails up 2/4, personal items and call light within reach, non skid socks applied, environment clear of hazards. [facility]08-05-2025 Nurse Note* Lauren Gaona RN - 06/18/2025 6:26 PM EDT Patient confused, on heparin drip, constantly trying to get out of bed, hitting, kicking and tryingto bite staff. Unable to follow direction. Dr Davis notified, says will order seroquel. Notified ofQT from EKG done 06/17 at [place]. [facility]08-05-2025 Progress note* Discharge Planning Note - Martina Mckeon - 06/18/2025 1:25 PM EDT DISCHARGE PLANNING NOTE Referral sent to [facility] in [place] (P# ; F# ) Medcurrent [id number] Progress note* Discharge Planning Note - Brianna Verduzco - 06/18/2025 1:04 PM EDT DISCHARGE PLANNING NOTE Referral sent to. [facility] in [place], [place] (P# ; F# ) [facility] [id number] Progress note* Discharge Planning Note - Dawson [...] Acute rehab, Home with home health services Director Airport Operations met with patient, introduced self, and explained role. Patient educated on safe discharge plan. Pt admitted 06/17/2025 with CVA (cerebral vascular accident) ([facility]) [I63.9] per chart review. Consults: Neurology Discharge Barriers per Daily Transition Rounds and chart review: PT/OT, s/p TNK- bedrest, MRi, echo. Past Medical History: Diagnosis Date Atrial fibrillation ([facility]) BPH (benign prostatic hyperplasia) Broken nose CVA (cerebral vascular accident) ([facility]) 06/17/2025 Diabetes ([facility]) Epistaxis Hypertension Hyponatremia secondary to SIADH Hypothyroid [...] patient to appointments, shopping and assisting with project controls scheduler. Caregiver's personal limitations include Patient's feels she [...] vs acute rehab. PCP: TANYA Lozano Pharmacy: [facility] PCP and pharmacy confirmed with patient. CN offered to assist with follow up appointment arrangements; . TANYA Lozano added to Follow Up Providers for Summary of Care communication. Per patient self-report: Drug use: denies Smoking: denies ETOH Use: rarely Current discharge plan is: Home with [facility] vs acute rehab pending PT/OT eval. CN spoke with patient'swife she has used [facility] in past. Tasked to send referrals to [facility] and to [facility]. Services Requested: Services Requested Patient expects [...] Evaluation of progress towards goal: Home with [facility] Autogenerated Goal Will continue to follow as plan of care develops. CN discussed benefits and importance of medication compliance and follow ups. Please feel free to reach out for any discharge planning questions. - Dawson Yost RN 06/18/25 12:24 PM [email or web address] [id number] Progress note* PT/OT/MENTAL HEALTH PROGRAM DIRECTOR - Zaire Sierra CCC- MIGUEL A - 06/18/2025 10:35 AM EDT Speech Therapy Evaluation Bedside Swallow/Feeding Evaluation Speech & Language Cognitive Evaluation Discharge Recommendations for Safe Patient Transition MENTAL HEALTH PROGRAM DIRECTOR Post Discharge Therapy Recommendations: Continue ST [...] decline resulting from CVA. Prognosis Services: Skilled MENTAL HEALTH PROGRAM DIRECTOR services to address above deficits Prognosis/Potential: Good Considerations: Age, Cognition Discharge Recommendations for Safe Patient Transition MENTAL HEALTH PROGRAM DIRECTOR Post Discharge Therapy Recommendations: Continue ST [...] should be further evaluated. Prognosis Services: Skilled MENTAL HEALTH PROGRAM DIRECTOR services to address the above deficits [...] Dysphagia Problem: Swallowing Dates: Start: 06/18/25 Disciplines: MENTAL HEALTH PROGRAM DIRECTOR Goal: STG: Patient will complete safety strategies independently during PO intake 90% of the time Dates: Start: 06/18/25 Expected End: 07/22/25 Disciplines: MENTAL HEALTH PROGRAM DIRECTOR Template: ST - Rehab Speech Problem: Auditory Comprehension Dates: Start: 06/18/25 Disciplines: MENTAL HEALTH PROGRAM DIRECTOR Goal: LTG: Patient will comprehend communication related to basic medical and social needs and utilize compensatory strategies to maintain safety in a functional living environment Dates: Start: 06/18/25 Expected End: 07/22/25 Disciplines: MENTAL HEALTH PROGRAM DIRECTOR Goal: STG: Patient will answer simple yes/no questions with 90% accuracy with minimal cueing. Dates: Start: 06/18/25 Expected End: 07/22/25 Disciplines: MENTAL HEALTH PROGRAM DIRECTOR Goal: STG: Patient will answer complex yes/no questions with 90% accuracy with minimal cueing Dates: Start: 06/18/25 Expected End: 07/22/25 Disciplines: MENTAL HEALTH PROGRAM DIRECTOR Problem: Verbal Expression Dates: Start: 06/18/25 Disciplines: MENTAL HEALTH PROGRAM DIRECTOR Goal: LTG: Patient will utilize compensatory strategies to communicate wants and needs effectively to different conversational partners, maintain safety and participate socially in a functional living environment Dates: Start: 06/18/25 Expected End: 07/22/25 Disciplines: MENTAL HEALTH PROGRAM DIRECTOR Goal: STG: Patient will complete simple to complex divergent and convergent naming tasks with 90% accuracy with minimal cueing to improve thought organization Dates: Start: 06/18/25 Expected End: 07/22/25 Disciplines: MENTAL HEALTH PROGRAM DIRECTOR Goal: STG: Patient will use word retrieval strategies during structured interactions to improve functional communication during activities of daily living with 90% accuracy with minimal cueing Dates: Start: 06/18/25 Expected End: 07/22/25 Disciplines: MENTAL HEALTH PROGRAM DIRECTOR Speech Therapy Care Plan (Resolved) There are no resolved problems. Principal Problem: CVA (cerebral vascular accident) ([facility]) [facility]08-05-2025 Progress note* PT/OT/MENTAL HEALTH PROGRAM DIRECTOR - Indu Marte OTR/L - 06/18/2025 7:37 AM EDT Occupational Therapy OT Type of Visit: Medical deferral Reason For Medical Deferral: Activity limitations Activity Limitations: Strict bedrest (Per TNK protocol. Will continue to follow.) [facility]08-05-2025 Progress note* PT/OT/MENTAL HEALTH PROGRAM DIRECTOR - Dana Campos, PT - 06/18/2025 7:28 AM EDT [...] Description: INTERVENTIONS: 1. Encourage patient or legal agency service representative to report early pain and ask [...] per policy 9. Teach patient or legal agency service representative interventions for comforting Outcome: Progressing Note: [...] at the bedside 7. Instruct patient/ patient agency service representative about use of safety devices 8. Include patient/ patient agency service representative in decisions related to safety Outcome: [...] hygiene technique. 7. Identify and instruct patient/patient agency service representative in use of appropriate isolation precautionsfor identified infection/symptoms. 8. Provide and discuss with patient/patient agency service representative on educational MDRO sheet. 9. Encourage and monitor nutritional status daily and consult creeler if indicated. 10. Implement neutropenic guidelines as [...] be free from fall Description: Interventions: 1. [place] to environment 2. Hourly rounds addressing the [...] non-skid footwear 11. Teach patient and patient agency service representative to maintain environment for safety and [...] (cane, walker) within reach 19. Request patient agency service representative bring adaptive equipment/mobility aids from home or obtain and provide as needed 20. Consult pharmacy regarding effects of med's affecting mobility, cognition, and alternatives 21. Obtain physician order for PT if risk factors associated with mobility are present 22. Obtain physician order for OT as appropriate 23. Utilize diversional activities 24. Educate patient and patient agency service representative how to maintain a safe environment during visitationtimes (notify nurse prior to leaving bedside) 25. Consider appropriateness of medical or non-chief medical technologist 26. Set up voiding schedule as appropriate (every 2 hours) Outcome: Progressing Note: Evaluation of progress towards goal: Fall risk assessment preformed and safety measures in place. Education given to family/patient. Will continue to monitor. [facility]08-04-2025 Plan of care note* Plan of Care - Rich Nelson RN - 06/17/2025 7:23 PM EDT Problem: Pain Goal: Patient goal is pain score less than 4, able to rest, and participant in treatment plan as appropriate Description: INTERVENTIONS: 1. Encourage patient or legal agency service representative to report early pain and ask [...] per policy 9. Teach patient or legal agency service representative interventions for comforting Outcome: Progressing Note: [...] at the bedside 7. Instruct patient/ patient agency service representative about use of safety devices 8. Include patient/ patient agency service representative in decisions related to safety Outcome: [...] hygiene technique. 7. Identify and instruct patient/patient agency service representative in use of appropriate isolation precautionsfor identified infection/symptoms. 8. Provide and discuss with patient/patient agency service representative on educational MDRO sheet. 9. Encourage and monitor nutritional status daily and consult creeler if indicated. 10. Implement neutropenic guidelines as needed. Outcome: Progressing Note: Evaluation of progress towards goal: Patient remains free from signs of infection at this time. Will continue to monitor. Problem: Knowledge Deficit Goal: Patient/patient agency service representative demonstrates understanding of disease process, treatment [...] be free from fall Description: Interventions: 1. [place] to environment 2. Hourly rounds addressing the [...] non-skid footwear 11. Teach patient and patient agency service representative to maintain environment for safety and [...] (cane, walker) within reach 19. Request patient agency service representative bring adaptive equipment/mobility aids from home or obtain and provide as needed 20. Consult pharmacy regarding effects of med's affecting mobility, cognition, and alternatives 21. Obtain physician order for PT if risk factors associated with mobility are present 22. Obtain physician order for OT as appropriate 23. Utilize diversional activities 24. Educate patient and patient agency service representative how to maintain a safe environment during visitationtimes (notify nurse prior to leaving bedside) 25. Consider appropriateness of medical or non-chief medical technologist 26. Set up voiding schedule as appropriate (every 2 hours) Outcome: Progressing Note: Evaluation of progress towards goal: Fall risk assessment preformed and safety measures in place. Education given to family/patient. Will continue to monitor. Additional Comments: [facility] [email or web address] TouchPal [id number] NotePatient Education Nephrology Hyponatremia Hyponatremia is when [...] Follow these instructions at home: ??? Take ssca-lqw-ccutvxh and prescription medicines only as told by [...] provider. Document Revised: 05/11/2022 Document Reviewed: 05/11/2022 [employer] Patient Education ? 2023 [employer].[facility] 06-05-2025 History of Present illness Narrative* Flip Dubose RN - 06/05/2025 7:02 PM EDT Pt discharge- pt taken downstairs by wheelchair by son and by car [facility] . Son givenmed s, discharge instructions . Questions answered * Flip Dubose RN - 06/05/2025 5:58 PM EDT Pt status- neuro BARK PRESS OPERATOR Nicole Musa called me in MICU few hrs ago. . Nicole spoke with Gladys , Kishore by phone. . Kishore is adament, despite Alfred mild confusion, that she and her son want to drive Alexx back home to [place] to care for him at home tonight * Milagro Lloyd - 06/05/2025 5:56 PM EDT CLINICAL PHARMACY NOTE: MEDS TO BEDS Total # of Prescriptions Filled: 2 The following medications were delivered to the patient: Cephalexin 500mg Lisinopril 10mg Additional Documentation: delivered to patient in room 3008 06/05 at 5:15pm. Co- pay $0.71 srivastava. * Starr Jackman [facility] - 06/05/2025 11:30 AM EDT Pharmacy Note Warfarin Consult follow-up Recent Labs 06/05/25 0449 INR 1.9 Recent Labs 06/02/25 1308 06/03/25 0618 HGB 12.3* 12.3* HCT 36.5* 35.2* PLT 147 See Reflexed IPF Result Warfarin dose GRANULATING BLENDER: 5 mg MWF and 2.5 mg all [...] Will continue to follow. Starr Jackman PharmD [facility] 06/05/2025 11:23 AM * Venessa Najera, PT - 06/05/2025 10:32 AM EDT Physical Therapy Facility/Department: [facility] Initial Evaluation Patient Name: [...] within reach, Gait belt, Left in chair [facility] Basic Mobility - Inpatient How much help [...] 3-5 steps with a railing?: A Little [facility] Inpatient Mobility Raw Score : 22 [facility] Inpatient T-Scale Score : 53.28 Mobility Inpatient [...] Level of Assist for Transfers: Independent Active Wrapper Rewinder: Yes Mode of Transportation: Truck Occupation: Retired [...] Deann Carter MD Internal Medicine Resident, PGY-2 [place], [place] 06/05/2025,10:28 AM Attending Physician Statement I [...] [facility] after a fall which resulted in nasal bone fracture. Patient initially presented to [facility] yesterday and was treated with Afrin and nasal pressure, patient was discharged home with ENT follow-up. When patient returned home he blew his nose and resulted in brisk bleeding from the left nare prompting him to return to the ER yesterday evening. He had bilateral nasal packing with Rhino Rocket's placed and was transferred to [facility] evaluation. Patient was seen by ENT upon [...] this chart was generated using voice recognition TowerJazz dictation software. Although every effort was made to ensure the accuracy of this automated dining room attendant, some errors in dining room attendant may have occurred. * Geo Rehman, [facility] - 06/04/2025 3:32 PM EDT Pharmacy Note Warfarin Consult follow-up Recent Labs 06/04/25 1423 INR 1.8 Recent Labs 06/02/25 1308 06/03/25 0618 HGB 12.3* 12.3* HCT 36.5* 35.2* PLT 147 See Reflexed IPF Result Warfarin dose GRANULATING BLENDER: 5 mg MWF and 2.5 mg all other days Indication: Afib Goal INR: 2-3 Current warfarin drug-drug interactions: Keflex, Pravachol, Synthroid Date INR Dose 06/02 1.9 2.5 mg 7/21 1.7 Per MAR, 5 mg dose was [...] MIRELES MD Pediatric Otolaryngology-Head and Neck Surgery [facility] Otolaryngology group Office ph# [phone] Also available in PerfectServe * Rowena Duong RPH - 06/03/2025 11:31 AM EDT Pharmacy Note [...] today. Daily PT/INR while inpatient. Rowena Duong, PharmHazel 06/03/2025 11:30 AM * Beto Hedrick DO - 06/03/2025 8:19 AM EDT Images from the original note were not included. [facility] Office: [phone] Viktor Monet DO, Jermaine Gustafson DO, Brigida [...] Duckworth MD, Tiffany Francis MD, Valerie Trivedi, CAUSTIC PREPARER, Keren Gutierrez, CAUSTIC PREPARER, Beto Guzman, CAUSTIC PREPARER, Kemi Hdz, [facility], Janelle Luna, CAUSTIC PREPARER, Celena Johnson, CAUSTIC PREPARER, Annia Rogers, CAUSTIC PREPARER, Christina Cuevas, CAUSTIC PREPARER, Marline Vila, PALisaC, Adore Cueto, CAUSTIC PREPARER, Emily Chiang, CAUSTIC PREPARER, Maria Elena De La Torre, CAUSTIC PREPARER, Venessa Mitchell, CAUSTIC PREPARER, Rush Peters, PA-C, Rachel Nascimento, PA-C, Itzel Salazar, CAUSTIC PREPARER, Edwina Cole, [facility], Alex Castillo CAUSTIC PREPARER, Leelee Easley, [facility] IN-PATIENT SERVICE [facility] Progress Note 06/03/2025 8:19 AM Name: Dariel Zabala Acct: [id number] Room: [address] [place] [address] Day: 1 Admit Date: 06/02/2025 10:01 AM [...] hypertension, type2 diabetes, SIADH initially presented to [place] emergency department for nosebleeding after mechanical fall out of a chair. CT scan reportedly showed nasal bone fracture. He was transferred to [facility] for ENT evaluation. ENT deflated nasal packings [...] , PHART , PH , POCPCO2 , KLT0JQO , PCO2 , POCPO2 , PO2ART , PO2 , POCHCO3 , XFJ5ZBM , HCO3 , NBEA , PBEA , BEART , BE , THGBART , THB , TXH2YLS , WQPW9EMU , T2DCOVES , O2SAT , FIO2 No results found [...] Hedrick DO 06/03/2025 8:19 AM * Florence Barnes MD - 06/03/2025 7:48 AM EDT ENT/OTOLARYNGOLOGY [...] BARNES MD Pediatric Otolaryngology-Head and Neck Surgery [facility] Otolaryngology group Office ph# [phone] Also available in Vadio * Juju Garcia [facility] - 06/02/2025 2:42 PM EDT Pharmacy Note [...] 06/02/2025 10:44 AM EDT Pt arrived from [facility] via [facility]. Pt A&Ox4, admission database complete. Mediations reconciled. Pt put on telemetry and continuous pulse ox. Vitals stable. Bilat rhino rockets in place. No active epistaxis at this time. Primary team made aware of arrival. Director Airport Operations called pt's to make her aware if the transfer, no answer left message. documented in this encounterBon [facility] Hospital course Narrative* Pepito Grant MD - 06/05/2025 3:29 PM EDT Images from the original note were not included. [facility] Department of Internal Medicine - Critical Care Service INPATIENT DISCHARGE SUMMARY PATIENT IDENTIFICATION: NAME: Dariel Zabala : 1940 Acct: [id number] Admit Date: 06/02/2025 Discharge date: No discharge [...] in nasal bone fracture. [facility] and was treated with Afrin and nasal pressure, patient wasdischarged home with ENT follow-up. When patient returned home he blew his nose and resulted in brisk bleeding from the left nare prompting him to return to the ER yesterday evening. He had bilateralnasal packing with Rhino Rocket's placed and was transferred to [facility] for ENT evaluation. Patient was seen by [...] 1 weeks with PCP, in 1 weeks learning technologies specialist Time Spent on discharge is more than 15 minutes in the examination, evaluation, counseling and review of medications and discharge plan. Pepito Grant MD Internal Medicine Resident Critical Care Service Cosigned by Flaco Ren MD at 06/05/2025 5:16 PM EDT documented in this encounterBon [facility] Hospital Discharge instructions* Discharge Instructions* Pepito Grant [...] 2-3 Please follow-up with your PCP and learning technologies specialist (kidney doctor )for continued care Please go to the nearest ER if you have worsening of current symptoms or started experiencing new symptoms like shortness of breath, chest pain, palpitations, dizziness, loss of consciousness, any bleed from the nose for further evaluation management documented in this encounterBon [facility]-2025 NoteNurse Consultation Note Reason for Visit patient [...] 03/31/2015 Recorded influenza virus vaccine, inactivated 08/02/2014 [facility] NotePatient Education Cardiovascular Atrial Fibrillation Atrial [...] these instructions at home: Medicines ??? Take itck-xef-jpjuhsn and prescription medicines only as told by [...] provider. Document Revised: 07/20/2023 Document Reviewed: 07/20/2023 [employer] Patient Education ? 2023 [employer]. Caregiving Fall Prevention in the Home, Adult Falls can cause injuries and can happen to people of all ag (more content not included)...[facility]02-17-2025 NoteNurse Consultation Note Reason for Visit [...] 03/31/2015 Recorded influenza virus vaccine, inactivated 08/02/2014 [facility]ed[facility]02-10-2025 NotePatient Education Cardiovascular Atrial Fibrillation Atrial [...] signals of the heart. ??? An ambulatory color television console monitor to record your heart's activity for [...] the main warning s (more content not included)...[facility] 11-28-2024 History of Present illness Narrative* Jose L Chow, CHRISTOPHER - 11/28/2024 1:00 PM EST Images from the original note were not included. HISTORY OF PRESENT ILLNESS: Dariel Zabala is an 84 y.o. @ male. 1ST PO LT CTR 11/19/24 (9 DAYS) @ [facility] [place] PAIN DIFFUSE IN HAND/WRIST. KEEPS COVERED [...] for requiring urgent evaluation. Jose L Chow APRN-CAUSTIC PREPARER documented in this encounterAudrain Medical [id number] History of Present illness Narrative* Emiliano Escamilla MD - 11/26/2024 10:30 AM EST Images from the original note were not included. Subjective Patient ID: Dariel Zabala is a 84 y.o. male who presents for Ear Problem (Hearing aid battery in ear.) Pt seen in [facility] ED last Tuesday and DARNELL battery noted [...] NECK SURGERY TRIGGER FINGER RELEASE Right 03/26/2024 [facility] [place] No Known Allergies Current Outpatient Medications [...] NOSTRIL ONCE DAILY AT BEDTIME [DISCONTINUED] HYDROcodone-acetaminophen (Kelso) 5-325 MG tablet [DISCONTINUED] tiZANidine (Zanaflex) 4 [...] dementia. Dr Garcia notified. documented in this encounterAudrain Medical [id number] NoteProgress Note-Physician Patient: DARIEL ZABALA Age: 84 years Sex: Male : 1940 Associated Diagnoses: None Author: Chau Lou MD Postoperative Information Postoperative disposition: Postoperative disposition: To PACU. Optimetrix number: Optimetrix number [id number]. Anesthetic utilized: General. Health Status Allergies: Allergic [...] Discharge when meets criteria ( To home ).[facility] HospitalComment on above:Result Comment: Electronically Signed By: Chau Lou MD\.br\Date and Time Signed: 11/19/24 15:19 EST 11-19-2024 Evaluation + Plan noteExtracted from:Title:ANES Post-operative Note---GeneralAuthor:Chau Lou MDDate:11/19/24 Plan Transfer/Discharge: Transfer/Discharge Discharge when meets criteria ( To home ). Extracted from:Title:ANES Pre-operative Note uthor:Chau Lou MDDate: 11/19/24 Plan [place] Society of Anesthesiologists (ASA) physical status classification: Class III. Anesthetic Preoperative Plan: Anesthesia General. Future Appointments Appointment Date:12/12/2024 10:15:00 AM Scheduled Provider:Dixon Dubose PA-C [facility] Type:Cardiology Follow Up (FT) Appointment Date:05/02/2025 08:00:00 AM Scheduled Provider: [facility] Appointment Type:FM Medicare Wellness Subsequent Future Scheduled Tests Laboratory* Basic Metabolic Panel 11/13/24 [facility] 01-06-2025 NotePatient Education - Text [place], [place] [facility] CARPAL TUNNEL RELEASE INSTRUCTIONS [...] Patient Signature Axel Hernández, DO [facility] [address] [place] [address] Reviewed: 04-22[facility]01-06-2025 NoteProgress Note-Physician Patient: DARIEL ZABALA Age: [...] daily, # 90 tab(s), Refills(s) 0, Pharmacy: [facility]/pharmacy #[id number], 178, cm, 06/11/24 12:53:00 EDT, Height/Length Dosing, 82, kg, 06/11/2412:56:00 EDT, Weight Dosing Sodium Chloride 1000 mg oral tablet, soluble: See Instructions, 30 tab(s), Refill(s) 0, Take one tablet daily, [facility]/pharmacy #[id number], 178.6, cm, 11/01/24 9:21:00 EST, Height/Length Dosing, 81.3, kg, 11/01/24 9:21:00 EST, Weight Dosing Synthroid 25 mcg(0.025 mg) Tab: See Instructions, TAKE 1 TABLET DAILY ON AN EMPTY STOMACH, # 3 tab(s), Refills(s) 0, Pharmacy: [facility]/pharmacy #[id number], 178, cm, 08/07/24 10:59:00 [...] Daily, # 90 tab(s), Refills(s) 1, [id number] 178.6, cm, 11/01/24 9:21:00 EST, Height/Length Dosing, 81.3, kg, 11/01/24 9:21:00 EST, Weight Dosing fluticasone Nasal 0.05 mg/inh [place]: See Instructions, 48 mL, Refill(s) 1, USE 1 SPRAY IN EACH NOSTRIL TWICE A DAY, [facility] STORE [id number], 178, cm, 08/28/24 14:50:00 EDT, Height/Length Dosing, [...] DAILY, # 3 tab(s), Refills(s) 0, Pharmacy: [facility], 178, cm, 08/07/24 10:59:00 EDT, Height/Length [...] Refills(s) 0, Blood Thinner (more content not included)...[facility] HospitalComment on above:Result Comment: Electronically Signed By: Carmine COHN, Chau Pineda\.br\Date and Time Signed: 11/19/24 11:51 [id number] Hospital Discharge instructions Patient Education 11/12/2024 12:08:21 Hernández - Carpal Tunnel Release Instructions (Custom) (CUSTOM) [place], [place] [facility] CARPAL TUNNEL RELEASE INSTRUCTIONS [...] resolve. Patient SignatureMiclolis Hernández DO [facility] [address] [place] [id number] Reviewed: 04-2211/19/2024 13:10:26 Post Op Patient Instructions - FT (Custom) (CUSTOM) Follow Up Care 10/03/2024 14:28:43 With:GORDO Weller Address: [address] [place], [place] [id number]- Business (1) When:11/28/2024 13:00:00 Comments:Keep scheduled appointment. Call for any problems. [facility] 12-30-2024 NotePatient Education - [place], [place] [facility] CARPAL TUNNEL RELEASE INSTRUCTIONS [...] Patient Signature Axel Hernández, DO [facility] [address] [place] [address] Reviewed: 04-22[facility]12-30-2024 NoteNurse Consultation Note Reason for Visit [...] 03/31/2015 Recorded influenza virus vaccine, inactivated 08/02/2014 RecordedS[facility]11-15-2024 History of Present illness Narrative* Shala Farrell MD - 09/28/2024 9:30 AM EST [facility] Patient: Dariel Zabala [address], [address] , Sex: 1940, Male [place], [place] [address] Height: 180 cm Ref Phys: Hernández fax [...] Doub=doublet; Fasc=fasciculation; FFE=full for effort; Fib=fibrillation; Myokym=myokymia; Edmond=myotonic potential; N,0=normal; NR=no response; Polyph=polyphasia; Pos=positive [sharp] [...] available for comparison. Shala Farrell M.D. Diplomate, [place] Board of Psychiatry and Neurology (neurology, epilepsy, sleep medicine) Diplomate, [place] Board of Clinical Neurophysiology Diplomate, [place] Board of Preventive Medicine (clinical informatics) . documented in this encounterAudrain Medical [id number] Telephone encounter Note* Telephone Encounter - Miguel Moe - 08/20/2024 10:50 AM EDT LVM to RC in regard to BUE referral from Dr. Hernández--Approved to schedule--25.00 co-pay will be applied to toward OOP. Audrain Medical [id number] Miscellaneous Notes* Telephone Encounter - Miguel Moe - 08/20/2024 10:50 AM EDT LVM to RC in regard to BUE referral from Dr. Hernández--Approved to schedule--25.00 co-pay will be applied to toward OOP. documented in this encounterAudrain Medical [id number] Hospital Discharge instructions Patient Education 03/26/2024 14:02:11 [...] condition: Doing activities that require a strong manager case. Having rheumatoid arthritis, gout, or diabetes. Being [...] splint on your hand. General instructions Take irle-fkg-hxtoima and prescription medicines only as told by [...] provider. Document Revised: 03/17/2020 Document Reviewed: 03/17/2020 [employer] Patient Education 2022 [employer]. Follow Up Care 03/01/2024 15:40:29 With:GORDO Weller Address: [address] [place], [place] [phone] Business (1) When:04/04/2024 10:15:00 Comments:Keep scheduled appointment [facility]01-05-2024 Evaluation note* Encounter Date Diagnosis Assessment Notes Treatment Notes Treatment Clinical Notes Nov, Anticoagulant long-term use (ICD -10 - Z79.01) Discussed risks of NSAID use with anticoagulation, will discontinue meloxicam at this point Nov,trial fibrillation (ICD-10 - I48.91)Atenolol increased to BID, appears to be in NSR on exam today. Will continue Nov,Influenza A (ICD-10 - J10.1)Completed course of tamiflu, recovered well from influenza Nov,hronic hyponatremia (ICD-10 - E87.1)Will continue sodium chloride supplementation, will plan to recheck sodium level at upcoming appt in January [facility] Other 12-20-2023 Evaluation note* Encounter Date Diagnosis Assessment Notes Treatment Notes Treatment Clinical Notes Oct, Hyponatremia (ICD-10 - E87.1) Oct,rostate cancer screening (ICD-10 - Z12.5) Oct,trial fibrillation (ICD-10 - I48.91) Oct,Syncopal episodes (ICD-10 - R55)We discussed differential for syncopal episodes with preceding [...] further dizziness symptoms would recommend f/u with turkey boner as well. [facility] Other 11-17-2023 Evaluation note* Encounter Date Diagnosis Assessment Notes Treatment Notes Treatment Clinical Notes Sep, Type 2 diabetes mellitus (ICD-10 - E11.9) [facility] Other 11-17-2023 Miscellaneous Notes* Telephone Encounter - Venessa Riggins RN - 09/30/2023 12:29 PM EST Called patient back and reviewed plan from his call with Nurse Concession Manager at 11:36 AM. See my note [...] have any questions, you can call Nurse food concession manager back. * Telephone Encounter - Venessa Riggins RN - 09/30/2023 11:36 AM EST Patient calling with request for physician referral: Patient referred to nephrology and primary care Department. Patient denies any new or worsening symptoms of which a provider is not aware: Yes. Patient was discharged from [facility] on 08/26 for low sodium and [...] appt center and then call dropped. My [place] and [employer] lost connection. NOC closing was given GO TO THE EMERGENCY ROOM OR CALL 911 IF: * You develop any new symptoms * Your condition worsens * You are concerned or anxious about your condition for any other reason. If you have any questions, you can call Nurse food concession manager back. documented in this encounterTrinity [facility]11-08-2023 Evaluation note* Encounter Date Diagnosis Assessment Notes Treatment Notes Treatment Clinical Notes Sep, Hyponatremia (ICD-10 - E87.1) Recent sodium 136 at low end of normal, given significance of symptoms and recommendation of hospital for f/u will refer to nephrology patient requesting [place] Sep,nticoagulant long-term use (ICD-10 - Z79.01)Follows with INR clinic through [facility]. Sep,trial fibrillation (ICD-10 - I48.91)Appears in NSR today, anticoagulated on Warfarin Sep,Hypothyroidism (ICD-10 - E03.9)Recent TFTs in normal range, clinically euthyroid, continue current dose of LT4 Sep,Type 2 diabetes mellitus (ICD-10 - E11.9)Recent a1c in good range at 5.6%, continue current dose of glimepiride. Sep,Immunization due (ICD-10 - Z23) [facility] Other 10-16-2023 Evaluation note* Encounter Date Diagnosis Assessment Notes Treatment Notes Treatment Clinical Notes Aug, Hyponatremia (ICD-10 - E87.1) [facility] Other 08-03-2023 Evaluation note* Encounter Date Diagnosis Assessment Notes Treatment Notes Treatment Clinical Notes Jun, Atrial fibrillation (ICD-10 - I4 8.91) Rate controlled, mild bradycardia but asymptomatic. Will continue current dose of atenolol. He is anticoagulated on Coumadin with goal INR 2-3, he is due for INR check. Will refer to coumadin clinic through [facility] Jun,nticoagulant long-term use (ICD-10 - Z79.01) Jun,Hearing loss (ICD-10 - H91.90)Referral to local director of financial planning Jun,ermatitis (ICD-10 - L30.9)Can trial topical steroid PRN, discussed may be secondary to dry skin. Recommend daily use of lotion Jun,Hypothyroidism (ICD-10 - E03.9)Due for TFTs prior to next visit Jun,Type 2 diabetes mellitus (ICD-10 - E11.9)Due for a1c prior to next visit Jun,PH (benign prostatic hyperplasia) (ICD-10 - N40.0) [facility] Other 08-03-2023 Reason for referral (narrative)* Reason Medication managemen t through [facility] - Coumadin management with INR goal 2-3 Diagnosis 1 Anticoagulant long-t erm use (Z79.01) Referral Organization [facility] Rodo Brown Referring Provider First Name Jada Referring Provider Last Name [facility] Referring Provider Specialty [facility] Referred Organization [facility] Referred Address [address] [place], [place],[address] Referred Provider Specialty Milvia felix Referral Priority Routine General Notes Gabrielle Reid 01/2023 01:34:29 PM >this is an order not a referral, clinical informed and will fax order over for standing order INR to [facility] Reason * FU 06/29 CALL he aring loss, issue with hearing aids Diagnosis 1 Hearing loss (H91.90 ) Referral Organization [facility] Rodo Brown Referring Provider First Name Jada Referring Provider Last Name [facility] Referring Provider Specialty [facility] Referred Organization [facility] Referred Address ,[place], [place],[address] Referred Provider Specialty Audiologists Referral Priority Routine General Notes Gabrielle Reid 01/2023 01:28:34 PM >referral received and faxed [employer] Other 04-27-2010 History of Past illness Narrative* Problem Noted DateDiagnosed DateResolved EtkoKdzuqkc14/27/Hypertrophy of prostate without urinary obstruction and other lower urinary tract symptoms (LUTS)08/11/Elevated prostate specific antigen (PSA)03/07/2012 documented as of this encounter (statuses as of 09/30/2023) [facility] No data available for this section [facility] Future Appointments Appointment Date:03/08/2024 01:00:00 PM Scheduled Provider:Edwin [facility]FM Open Appointment Date:03/26/2024 01:45:00 PM Scheduled Provider: Location:[facility] Appointment Type:Surgery FT Appointment Date:05/01/2024 09:00:00 AM Scheduled Provider: [facility] Appointment Type:FM Lab Draw Appointment Date:05/03/2024 08:00:00 AM Scheduled Provider: [facility] Type: Medicare Wellness Subsequent Appointment Date:05/03/2024 09:00:00 AM Scheduled Provider:Edwin Garcia MD [facility] Appointment Type: Open Future Scheduled Tests Laboratory* PSA Screen, Total 02/02/24 * CBC w/ Auto Diff 02/02/24 * Comprehensive Metabolic Panel 02/02/24 * [facility] Future Appointments Appointment Date:05/01/2024 09:00:00 AM Scheduled Provider: [facility] Type:FM Lab Draw Appointment Date:05/03/2024 08:00:00 AM Scheduled Provider: Location[facility] Appointment Type: Medicare Wellness Subsequent Appointment Date:05/03/2024 09:00:00 AM Scheduled Provider:Edwin Garcia MD [facility] Type: Open Future Scheduled Tests Laboratory* PSA Screen, Total 02/02/24 * CBC w/ Auto Diff 02/02/24 * Comprehensive Metabolic Panel 02/02/24 * Lipid Panel [facility]02[facility]24 [facility] Future Appointments Appointment Date:05/01/2024 09:00:00 AM Scheduled Provider: [facility] Type:FM Lab Draw Appointment Date:05/03/2024 08:00:00 AM Scheduled Provider: [facility] Appointment Type: Medicare Wellness Subsequent Appointment Date:05/03/2024 09:00:00 AM Scheduled Provider:Edwin Garcia MD Location[facility] Appointment Type: Open Appointment Date:05/25/2024 01:00:00 PM Scheduled Provider:Kashif Barnett MD [facility] App[facility] Type:Cardiology Follow Up (FT) Future Scheduled Tests Laboratory* PSA Screen, Total 02/02/24 * CBC w/ Auto Diff 02/02/24 * Comprehensive Metabolic Panel 02/02/24 * Lipid Panel 02/02/24 Radiology* Echo Transthoracic Complete 04/20/24 [facility] Future Appointments Appointment Date:05/03/2024 08:00:00 AM Scheduled Provider: [facility] Appointment Type: Medicare Wellness Subsequent Appointment Date:05/03/2024 09:00:00 AM Scheduled Provider:Edwin Garcia MD Location[facility] Appointment Type: Open Appointment Date:05/21/2024 10:00:00 AM Scheduled [facility]: [facility] Type:CV Holter/Event (FT) Appointment Date:05/25/2024 01:00:00 PM Scheduled Provider:Kashif Barnett MD Location:[facility] Appointment Type:Cardiology Follow Up (FT) [facility] Future Appointments Appointment Date:05/30/2024 03:45:00 PM Scheduled Provider:Kashif Barnett MD [facility] Type:Cardiology Follow Up (FT) Appointment Date:11/01/2024 09:15:00 AM Scheduled Provider:Edwin Garcia MD Location[facility] Appointment Type: Open Appointment Date:05/02/2025 08:00:00 AM Scheduled Provider: Location[facility] Appointment Type: Medicare Wellness Subsequent [facility] Future Appointments Appointment Date:08/31/2024 01:00:00 PM Scheduled Provider:Kashif Barnett MD [facility] Appointment Type:Cardiology Follow Up (FT) Appointment Date:11/01/2024 09:15:00 AM Scheduled Provider:Edwin Garcia MD Location[facility] Appointment Type:FM Open Appointment Date:05/02/2025 08:00:00 AM Scheduled Provider: [facility] App[facility]ment Type:FM Medicare Wellness [facility] Future Appointments Appointment Date:11/01/2024 09:15:00 AM Scheduled Provider:Edwin Garcia MD Location[facility] Appointment Type:FM Open Appointment Date:12/11/2024 01:00:00 PM Scheduled Provider:Dixon Dubose PA-C Location:[facility] Appointment Type:Cardiology Follow Up (FT) Appointment Date:05/02/2025 08:00:00 AM Scheduled Provider: [facility] Appointment Type:FM Medicare Wellness Subsequent [facility] evaluation + Plan note Future Appointments Appointment Date:11/01/2024 09:15:00 AM Scheduled Provider:Edwin Garcia MD Location[facility] Appointment Type:FM Open Appointment Date:11/19/2024 02:15:00 PM Scheduled Provider: Location:[facility] Appointment Type:Surgery FT Appointment Date:12/12/2024 10:15:00 AM Scheduled Provider:Dixon Dubose PA-C Location[facility] Appointment Type:Cardiology Follow Up (FT) Appointment Date:05/02/2025 08:00:00 AM Scheduled Provider: [facility] Appointment Type: Medicare Wellness [facility] Evaluation + Plan note Future Appointments Appointment Date:11/19/2024 02:15:00 PM Scheduled Provider: Location:[facility] Appointment Type:Surgery FT Appointment Date:12/12/2024 10:15:00 AM Scheduled Provider:Dixon Dubose PA-C Location:[facility] Appointment Type:Cardiology Follow Up (FT) Appointment Date:05/02/2025 08:00:00 AM Scheduled Provider: [facility] Appointment Type: Medicare Wellness [facility] [employer] + Plan note Future Appointments Appointment Date:12/24/2024 01:15:00 PM Scheduled Provider:Edwin Garcia MD [facility] Type: Open Appointment Date:05/02/2025 08:00:00 AM Scheduled Provider: [facility] Appointment Type:FM Medicare Wellness Subsequent Diagnostic Tests Pending * Basic Metabolic Panel 12/17/24 Future Scheduled Tests Laboratory* Basic Metabolic Panel 11/13/24 [facility] [employer] + Plan note Future Appointments Appointment Date:01/22/2025 10:15:00 AM Scheduled Provider:Edwin Garcia MD [facility] Appointment Type: Open Appointment Date:05/02/2025 08:00:00 AM Scheduled Provider: [facility] Appointment Type:FM Medicare Wellness Subsequent Future Scheduled Tests Laboratory* Basic Metabolic Panel 11/13/24 [facility] [employer] + Plan note Future Appointments Appointment Date:02/05/2025 01:30:00 PM Scheduled Provider:Edwin Garcia MD [facility] Appointment Type: Open Appointment Date:05/02/2025 08:00:00 AM Scheduled Provider: [facility] Appointment Type: Medicare Wellness Subsequent Future Scheduled Tests Laboratory* Basic Metabolic Panel 01/10/25 * Basic Metabolic Panel 11/13/24 [facility] [employer] + Plan note Future Appointments Appointment Date:05/02/2025 08:00:00 AM Scheduled Provider: [facility] Appointment Type: Medicare Wellness Subsequent Future Scheduled Tests Laboratory* Basic Metabolic Panel 11/13/24 [facility] [employer] + Plan note Future Appointments Appointment Date:08/09/2025 10:40:00 AM Scheduled Provider:YANIQUE MCNEILL CNP [facility] Appointment Type:FM Open Appointment Date:05/13/2026 08:00:00 AM Scheduled Provider: Location[facility] Appointment Type:FM Medicare Wellness Subsequent Future Scheduled Tests Laboratory* Basic Metabolic Panel 11/13/24 [facility] Evaluation noteNo [facility] [employer] Other Evaluation note* Diagnosis Pain in both upper extremities- Primary Carpal tunnel syndrome, bilateral Carpal tunnel syndrome [facility] Diagnosis Pre-op testing- Primary Unspecified pre-operative examination Right hand pain Pain in soft tissues of limb Arm weakness Other musculoskeletal symptoms referable to limbs documented in this encounter [facility]* Diagnosis Foreign body of right ear, initial encounter- Primary documented in this encounter [facility]* Diagnosis Status post carpal tunnel release- Primary Other postprocedural status documented in this encounter [facility]* Diagnosis Fracture of nasal bones, [...] and immunity disorders [facility]* Diagnosis CVA (cerebral vascular accident) (CMS-HCC)- Primary Unspecified cerebral artery occlusion with cerebral infarction 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 (CMS-HCC) documented [facility] N[facility]ative - Reported* Type Description Date Medical History type 2 diabetes Medical HistoryhypothyroidMedical HistoryAfibSurgical Historymultiple neck sx Surgical HistorytonsillectomySurgical HistoryadenoidectomySurgical HistoryBIL cataractHospitalization Historysee above [facility] [employer] Other History general Narrative - Reported* Type Description Date Medical History type 2 diabetes Medical HistoryhypothyroidMedical HistoryAfibSurgical Historymultiple neck sx Surgical HistorytonsillectomySurgical HistoryadenoidectomySurgical HistoryBIL cataractHospitalization Historysee aboveHospital[facility] [employer] Other History general Narrative - Reported* Type Description Date Medical History type 2 diabetes Medical HistoryhypothyroidMedical HistoryAfibSurgical Historymultiple neck sx Surgical HistorytonsillectomySurgical HistoryadenoidectomySurgical HistoryBIL cataractHospitalization Historysee aboveHospitalization History[facility] History[facility]--Influenza A, hyponatremia, paroxysmal afib, altered mental status, type 2 DM, generalized weakness hypomagnesiema, AKI11/13/23-11/15/23 [facility] [employer] Other Hospital Discharge instructions No data available for this section [facility] CenterHoital Discharge instructionsNot on file documented in this [...] your [facility] in the [facility] Work Phone: Progress note No data available for this section [facility] CenterReason for visit Narrative* Auth/Cert (Routine) SpecialtyDiagnoses / ProceduresReferred By ContactReferred To Contact Diagnoses Epistaxis Nasal fracture Fracture of nasal bones, initial encounter for closed fracture Beto Hedrick DO [address] [place] [address] Phone: tel: fax: [facility] [address] [place] [address] Referral IDStatusLupemagalia DateExpiration DateVisits RequestedVisits [id number] [facility] for visit Narrative* Auth/CertSpecialtyDiagnoses / ProceduresReferred By ContactReferred To Contact Diagnoses CVA [facility] [address] [place] [phone] Referral IDStatusJaneeEdgecomb DateExpiration DateVisits RequestedVisits [id number] [facility] Summary Purpose Family History No Family History Records Found Relationship Condition Age at Onset Recorded Date/T siri father Unknown family memberDeceasedUnknownmotherDeceasedUnknown Advance Directives No Advanced Directives Records Found Date ActivatedDate InactivatedComments06/02/2025 12:05 PMDate ActivatedDate InactivatedComments06/23/2025 10:31 AM Advance Directive Response Recorded Date/ Time Advance Directives No June 16 023 2:41pm Reason for Referral Reason * FU 09/28 follow up hospitalization for symptomatic hyponatremia, [facility] [place] [address] Lara ph [phone], fax [phone] Diagnosis 1 Hyponatremia (E87.1) [facility] Referring Provider First Name Jada Referring Provider Last Name [facility] Referring Provider Specialty [facility]sun Referred Organization Will Villalpando [facility] Referred Provider Romeo Lara Referred Address [address], [place],[address] Referred Provider Specialty Internal Med icine Referral Priority Routine General Notes Gabrielle Reid 06/2023 01:35:25 PM > referral received and faxed Clinical Notes [facility] [place] [address] Lara ph [phone], fax [phone] Reason hyponatremia, recent [facility] Diagnosis 1 Hyponatremia (E87.1) Referral Organization [facility] Referring Provider First Name Jada Referring Provider Last Name [facility] Referring Provider Specialty [facility] Referred Organization [facility] Referred Address [address] [place] [place], [place],[address] Referred Provider Specialty Nephrology Referral Priority Routine [...] section and content) DATE CREATED AUTHOR 06/03/2020 [facility] DATE CREATED AUTHOR AUTHOR'S ORGANIZ ATION 05/03/2024 [facility] DATE CREATED AUTHOR AUTHOR'S ORGANIZ ATION 08/17/2024 [facility] DATE CREATED AUTHOR AUTHOR'S ORGANIZ ATION 11/02/2024 [facility] DATE CREATED AUTHOR AUTHOR'S ORGANIZ ATION 11/14/2024 [facility] DATE CREATED AUTHOR AUTHOR'S ORGANIZ ATION 11/24/2024 [facility] DATE CREATED AUTHOR AUTHOR'S ORGANIZ ATION 11/25/2024 [facility] DATE CREATED AUTHOR AUTHOR'S ORGANIZ ATION 11/29/2024 [facility] DATE CREATED AUTHOR AUTHOR'S ORGANIZ ATION 12/21/2024 [facility] DATE CREATED AUTHOR AUTHOR'S ORGANIZ ATION 01/02/2025 [facility] DATE CREATED AUTHOR AUTHOR'S ORGANIZ ATION 01/11/2025 [facility] DATE CREATED AUTHOR AUTHOR'S ORGANIZ ATION 01/27/2025 [facility] DATE CREATED AUTHOR AUTHOR'S ORGANIZ ATION 02/06/2025 [facility] DATE CREATED AUTHOR AUTHOR'S ORGANIZ ATION 02/07/2025 [facility] DATE CREATED AUTHOR AUTHOR'S ORGANIZ ATION 02/22/2025 [facility] DATE CREATED AUTHOR AUTHOR'S ORGANIZ ATION 05/24/2025 [facility] DATE CREATED AUTHOR AUTHOR'S ORGANIZ ATION 06/03/2025 [facility] DATE CREATED AUTHOR AUTHOR'S ORGANIZ ATION 06/08/2025 [facility] DATE CREATED AUTHOR AUTHOR'S ORGANIZ ATION 06/09/2025 [facility] DATE CREATED AUTHOR AUTHOR'S ORGANIZ ATION 06/09/2025 [facility] DATE CREATED AUTHOR AUTHOR'S ORGANIZ ATION 06/14/2025 [facility] DATE CREATED AUTHOR AUTHOR'S ORGANIZ ATION 06/15/2025 [facility] DATE CREATED AUTHOR AUTHOR'S ORGANIZ ATION 07/23/2025 [facility] DATE CREATED AUTHOR AUTHOR'S ORGANIZ ATION 08/02/2025 [facility] DATE CREATED AUTHOR AUTHOR'S ORGANIZ ATION 08/25/2025 [facility] DATE CREATED AUTHOR AUTHOR'S ORGANIZ ATION 08/27/2025 [facility] REASON FOR VISIT (unrecogniz ed section and content) ReasonCommentsRefill RequestReasonCommentsFollow-upReasonCommentsEar Problem Hearing aid battery in ear.ReasonCommentsPost-op Source Comments (unrecognize d section and content) In the event this informatio n is protected by the Federal Confidentiality of Alcohol and Drug Abuse Patient Records regulations: The Federal rules restrict any use of the information to criminally investigate or prosecute any alcohol or drug abuse patient.[facility] Patient Care team informatio n (unrecognized section and content) Team MemberRelationshipSpecialtyStart DateEnd Date Edwin Garcia MD PCP - GeneralFamily Medicine02/03/24Team MemberRelationshipSpecialtyStart DateEnd Date Edwin Garcia MD PCP - GeneralFamily Medicine02/03/24Team MemberRelationshipSpecialtyStart DateEnd Date Edwin Garcia MD PCP - GeneralFamily Medicine02/03/24Team MemberRelationshipSpecialtyStart DateEnd Date Edwin Garcia MD PCP - GeneralFamily Medicine02/03/24Team MemberRelationshipSpecialtyStart DateEnd Date Edwin Garcia MD PCP - GeneralFamily Medicine02/03/24Team MemberRelationshipSpecialtyStart DateEnd Date Edwin Garcia MD [address] [place] [phone] PCP - GeneralFamily Medicine11/26/24Team MemberRelationshipSpecialtyStart DateEnd Date Edwin Garcia MD [address] [place] [address] PCP - GeneralFamily Medicine11/26/24Team MemberRelationshipSpecialtyStart DateEnd Date Edwin Garcia MD [address] [place] [address] PCP - GeneralFamily Medicine11/26/24Team MemberRelationshipSpecialtyStart DateEnd Date Edwin Garcia MD [address] [place] [address] PCP - GeneralFamily Medicine11/26/24Team MemberRelationshipSpecialtyStart DateEnd Date Jaden Maravilla, SOLAR PHOTOVOLTAIC SYSTEMS ENGINEER - BARK PRESS OPERATOR [address] [facility] [address] PCP - General06/05/25Team MemberRelationshipSpecialtyStart DateEnd Date Yanique Mcneill, SOLAR PHOTOVOLTAIC SYSTEMS ENGINEER-CAUSTIC PREPARER [address] [facility] [address] [place] [address] PCP - GeneralFamily Medicine06/13/25Team MemberRelationshipSpecialtyStart DateEnd Date Edwin Garcia MD [address] [place] [address] PCP - GeneralFamily Medicine11/26/24 Team Status: Active Member Role Status Dates Yanique Mcneill [facility] Primary Care Provider Active Team Status: Active Member Role Status Dates Yanique Mcneill [facility] Primary Care Provider Active Start: July 19, 2025 Bhavya Vinesit ProviderActiveStart: July 19, 2025 Thalia Cervantes MDOther ProviderActiveStart: July 19, 2025 Dev Archuleta , DOOther ProviderActiveStart: July 19, 2025 Darien Gordillo MDOther ProviderActiveStart: July 19, 2025 Win Santillan DOOther ProviderActiveStart: July 19, 2025 Axel Dee MDAttending ProviderActiveStart: July 19, 2025 Axel Dee MDOther ProviderActiveStart: July 19, 2025 Zechariah Crews MDOther ProviderActiveStart: July 19, 2025 End: July 23, 2025Varsha Dela Cruz MDOther ProviderActiveStart: July 19, 2025 End: July 23, 2025Chau Márquez MDOther ProviderActiveStart: July 19, 2025 End: July 23, 2025Blossom Bee MDOther ProviderActiveStart: July 19, 2025 End: July 23jarod Aggarwal MDOther ProviderActiveStart: July 19, 2025 End: July 23, 2025Janay Ramirez ProviderActiveStart: July 19, 2025 End: July 23lyly Mena NP-COther ProviderActiveStart: July 19, 2025 End: July 23GRETCHEN Martinez-BCOther ProviderActiveStart: July 19, 2025 End: July 23, 2025 Ordered Prescriptions (unrec ognized section and content) PrescriptionSigDispense QuantityRefillsLast FilledStart DateEnd Date urea (URE-NA) 15 g PACK packet Take 15 g by mouth daily 30 each urea (URE-NA) 15 g PACK packet Take 15 g by mouth daily 30 each urea (URE-NA) 15 g PACK packet Take 15 g by mouth daily 30 each / cephALEXin (KEFLEX) 500 MG capsule Take 1 capsule by mouth every 8 hours for 4 days 12 capsule 507/ lisinopril (PRINIVIL;ZESTRIL) 10 MG tablet Take 1 tablet by mouth daily 30 tablet Scheduled Active and Recently Administ ered Medications (unrecognized section and content) Medication Order// atenolol (TENORMIN) tablet 25 mg 25 mg, Oral, 2 TIMES DAILY, First dose (after last modification) on 06/02/25 at 2100, Until Discontinued, Hold for heart rate <60b/m Sbp <110mmHg * 0930 (Given - Provider: Pat Nieves RN) * 210 (Not Given - Provider: Adia Blandon RN - Reason: Patient/family refused - Comment: Ptunable to follow commands and swallow) * 110 (Given - Provider: Flip Dubose RN - Comment: 2 anti hypentive meds at once) * 2012 (Not Given - Provider: Nancy Fox RN - Reason: Contraindicated) * 0837 (Given - Provider: Flip Dubose RN) * 2100 (Due) cephALEXin (KEFLEX) capsule 500 mg 500 mg, Oral, EVERY 8 HOURS SCHEDULED (3 times per day), First dose on 06/02/25 at 1415, Until Discontinued, Antimicrobial Indications: Other, Other Abx Indication: nasal packing * 0621 (Given - Provider: Kelly Huerta RN) * 1309 (Given - Provider: Pat Nieves RN) * 2107 (Not Given - Provider: Adia Blandon RN - Reason: Other - Comment: Pt unable to followcommands, can not take sip of water) * 0635 (Given - Provider: Monico Kaiser RN) * 1432 (Given - Provider: Flip Dubose RN) * 2153 (Given - Provider: Nancy Fox RN) * 0542 (Given - Provider: Nancy Fox RN) * 1527 (Not Given - Provider: Flip Dubose RN - Reason: Patient/family refused) * 2200 (Due) finasteride (PROSCAR) tablet 5 mg 5 mg, Oral, DAILY, First dose on 06/02/25 at 1415, Until Discontinued, Women should not handle crushed or broken finasteride tablets when they are or may potentially be , due to potential risk to the fetus. * 0931 (Given - Provider: Pat Nieves RN) * 0848 (Given - Provider: Flip Dubose RN) * 1035 (Given - Provider: Flip Dubose RN) gabapentin (NEURONTIN) capsule 300 mg 300 mg, Oral, DAILY, First dose on Tue06/02/25 at 1415, Until Discontinued * 0931 (Given - Provider: Pat Nieves RN) * 0849 (Given - Provider: Flip Dubose RN) * 0838 (Given - Provider: Flip Dubose RN) glipiZIDE (GLUCOTROL) tablet 5 mg 5 mg, Oral, DAILY BEFORE BREAKFAST, First dose on Tue06/03/25 at 0700, Until Discontinued, Substituted for glimepiride (AMARYL). * 0931 (Given - Provider: Pat Nieves RN) * 0628 (Not Given - Provider: Monico Kaiser RN - Reason: Other - Comment: do not give per Dr. Keita/t blood sugar 76) * 0730 (Not Given - Provider: Flip Dubose [...] 60 minutes of last blood glucose check * 0931 (Not Given - Provider: Pat Nieves RN - Reason: Order parameters not met) * 1231 (Not Given - Provider: Pat Nieves RN - Reason: Order parameters not met) * 1812 (Not Given - Provider: Pat Nieves RN - Reason: Order parameters not met) * 2111 (Not Given - Provider: Adia Blandon RN - Reason: Order parameters not met) * 0620 (Not Given - Provider: Monico Kaiser RN - Reason: Order parameters not met - Comment: bs 76) * 1007 (Not Given - Provider: Flip Dubose RN - Reason: Order parameters not met) * 1611 (Not Given - Provider: Flip Dubose RN - Reason: Order parameters not met - Comment: order parameters not met) * 2013 (Not Given - Provider: Nancy Fox RN - Reason: Order parameters not met) * 0700 (Not Given - Provider: Flip Dubose RN - Reason: Order parameters not met) * 1130 (Not Given - Provider: Flip Dubose RN - Reason: Order parameters not met) * 1700 (Due) * 2100 (Due) levothyroxine (SYNTHROID) tablet 25 mcg 25 mcg, Oral, DAILY, First dose on Tue06/02/25 at 1415, Until Discontinued, Tube feeding (TF) interaction, obtain physician order to manage, recommend holding TF for 30 minutes before and after dose. * 0636 (Given - Provider: Jaxon Camejo RN) * 0630 (Given - Provider: Monico Kaiser RN) * 0839 (Given - Provider: Flip Dubose RN) lisinopril (PRINIVIL;ZESTRIL) tablet 10 mg 10 mg, Oral, DAILY, First dose on Tue06/03/25 at 1145, Until Discontinued * 1309 (Given - Provider: Pat Nieves RN) * 0946 (Given - Provider: Flip Dubose RN) * 1000 (Not Given - Provider: Flip Dubose RN - Reason: Order parameters not met - Comment: bp marginal) pantoprazole (PROTONIX) tablet 40 mg 40 mg, Oral, DAILY BEFORE BREAKFAST, First dose on Tue06/03/25 at 0700, Until Discontinued, Do not crush or break. Substituted for Omeprazole (PRILOSEC). * 0636 (Given - Provider: Jaxon Camejo RN) * 0630 (Given - Provider: Monico Kaiser RN) * 0840 (Given - Provider: Flip Dubose RN) pravastatin (PRAVACHOL) tablet 40 mg 40 mg, Oral, DAILY, First dose on Tue06/02/25 at 1415, Until Discontinued * 0931 (Given - Provider: Pat Nieves RN) * 0851 (Given - Provider: Flip Dubose RN) * 0842 (Given - Provider: Flip Dubose RN) sodium chloride (OCEAN) 0.65 % nasal spray 2 spray 2 spray, Each Nostril, EVERY 4 HOURS, First dose (after last modification) on 06/02/25 at 1415, Until Discontinued * 0204 (Not Given - Provider: Jaxon Camejo RN - Reason: Patient/family refused) * 0540 (Not Given - Provider: Jaxon Camejo RN - Reason: Patient/family refused) * 0932 (Given - Provider: Pat Nieves, RN) * 1415 (Not Given - Provider: aPt Nieves RN - Reason: Patient/family refused) * 1841 (Not Given - Provider: Pat Nieves RN - Reason: Patient/family refused) * 2110 (Given - Provider: Adia Blandon RN) * 0240 (Given - Provider: Monico Kaiser, RN) * 0630 (Given - Provider: Monico Kaiser RN) * 0853 (Given - Provider: Flip Dubose, RN) * 1432 (Given - Provider: Flip Dubose, RN) * 1753 (Given - Provider: Flip Dubose, RN) * 2026 (Given - Provider: Nancy Fox, ERIN) * 0206 (Given - Provider: Nancy Fox RN) * 0542 (Given - Provider: Nancy Fox, ERIN) * 1036 (Given - Provider: Flip Dubose, ERIN) * 1528 (Not Given - Provider: Flip Dubose RN - Reason: Patient/family refused) * 1815 (Due) * 2215 (Due) sodium chloride flush 0.9 % injection 5-40 mL 5-40 mL, IntraVENous, EVERY 12 HOURS SCHEDULED (2 times per day), First dose on 06/02/25 at 2100, Until Discontinued, For Line Patency: Peripheral IV = 5 mL; Midline or Central Line = 10 mL/lumen.If following IV push medication, administer flush at same rate as the IV push. Flush volume is determined by type of infusion therapy being given. For non-viscous solutions use: Peripheral IV = 5 mL Midline or Central Line = 10 mL/lumen For viscous solutions (i.e. blood components, parenteral nutrition, contrast media, or after obtaining blood sample) use: Peripheral IV = 10 mL Midline or CentralLine = 20 mL/lumen * 0932 (Given - Provider: Pat Nieves RN) * 215 (Given - Provider: Adia Blandon RN) * 0853 (Given - Provider: Flip Dubose RN) * 2014 (Given - Provider: Nancy Fox, ERIN) * 0841 (Given - Provider: Flip Dubose RN) * 2100 (Due) sodium chloride tablet 1 g (CANCELED) 1 g, Oral, 3 TIMES DAILY, First dose on Tue06/02/25 at 1445, Until Discontinued * 0932 (Given - Provider: Pat Nieves RN) sodium chloride tablet 2 g (CANCELED) 2 g, Oral, 3 TIMES DAILY, First dose (after last modification) on Tue06/03/25 at 1400, Until Discontinued * 1310 (Given - Provider: Pat Nieves RN) * 2100 (Due) * 0852 (Given - Provider: Flip Dubose RN) * 143 (Given - Provider: Flip Dubose RN) * 2020 (Given - Provider: Nancy Fox RN) * 0841 (Given - Provider: Flip Dubose RN) tamsulosin (FLOMAX) capsule 0.4 mg 0.4 mg, Oral, DAILY, First dose on Tue06/02/25 at 1415, Until Discontinued, Do not crush or break. Give 30 minutes after a full meal to limit risk of orthostatic hypotension/falls. * 0932 (Given - Provider: Pat Nieves RN) * 0947 (Given - Provider: Flip Dubose RN) * 0841 (Given - Provider: Flip Dubose RN) tolvaptan (SAMSCA) pre-split tablet 7.5 mg (COMPLETED) 7.5 mg, Oral, ONCE, 1 dose, On Tue06/04/25 at 1230, Has the patient failed fluid restriction? Yes, Is the patient's serum sodium less than 125 mEq/L and plasma osmolality less than 285 mOsm/kg OR less marked hyponatremia that is symptomatic and resistant to fluid restriction? Yes, Does patient havehypovolemic hypotonic hyponatremia OR signs of dehydration? No, Is the patient anuric? No * 1433 (Given - Provider: Flip Dubose RN [...] resistant to fluid restriction? Yes, Does patient havehypovolemic hypotonic hyponatremia OR signs of dehydration? No, Is the patient anuric? No * 1204 (Given - Provider: Flip Dubose, RN) urea (URE-NA) packet 15 g 15 g, Oral, DAILY, First dose on [place] 06/06/25 at 0900, Until Discontinued, Mix each 15 g dose with 3to 4 ounces of water or juice. warfarin (COUMADIN) tablet 5 mg (COMPLETED) 5 mg, Oral, ONCE Warfarin, 1 dose, On Tue06/04/25 at 1800, Indication of Use: A Fib/A Flutter, Whatis the patient's goal INR? 2.0 - 3.0, Review INR prior to administration. Hazardous med- See facility policy for handling/disposal * 1752 (Given - Provider: Flip Dubose RN) warfarin (COUMADIN) tablet 5 mg 5 mg, Oral, ONCE Warfarin, 1 dose, On Tue06/05/25 at 1800, Indication of Use: A Fib/A Flutter, Whatis the patient's goal INR? 2.0 - 3.0, Review INR prior to administration. Hazardous med- See facility policy for handling/disposal * 1800 (Due) warfarin placeholder: dosing by pharmacy Please contact the pharmacy if a dose is not entered by 1600. Review INR prior to warfarin administration. Medication Order// 3% sodium chloride (HYPERTONIC) IV infusion () [...] OR if serum Na+ goal is exceeded. * 2140 (New Bag - Provider: Adia Blandon, RN) * 0248 (Stopped - Provider: Monico Kaiser RN) Medication Order// 0.9 % sodium chloride infusion IntraVENous, at [...] 06/02/25 at 1205, Repeat blood glucose in 15minutes. If blood glucose remains LESS THAN 70 mg/dL, repeat treatment and recheck blood glucose in15 minutes x 2. If using glycemic management system, dose as instructed per system. If blood glucose remains LESS THAN 70 mg/dL after 2 intravenous boluses start dextrose 10% at 100 mL/hour and notify provider. glucagon injection 1 mg 1 mg, SubCUTAneous, PRN, Starting on 06/02/25 at 1205, Until Discontinued, Low blood sugar, Blood glucose LESS THAN 70 mg/dL and patient NOT ALERT or NPO and does not have IV access., After administration, attempt intravenous access and start dextrose 10% at 100 mL/hr. Repeat blood glucose in 15minutes x 2 and notify provider. Reconstitute powder for injection by adding 1 mL of grinding wheel facer-supplied sterile diluent or sterile water for injection [...] alert and tolerating oral. Give 4 tablets (16g)Repeat blood glucose in 15 minutes. If blood [...] Injection must be diluted with at least anequal volume of compatible solution (NS or D5W). * 1648 (Given - Provider: Pat Nieves RN) magnesium sulfate 1000 mg in dextrose 5% 100 mL IVPB 1,000 mg, IntraVENous, at 100 mL/hr, Administer over 1 Hours, PRN, Other, Per IV Magnesium Replacement Protocol, Starting on 06/02/25 at 1205, Mg Lab Replacement Action 1.4-1.6 [...] Administer if oral route cannot be used. * 2140 (Given - Provider: Adia Blandon RN) * 0750 (Given - Provider: Flip Dubose, ERIN) ondansetron (ZOFRAN-ODT) disintegrating tablet 4 mg(Linked Group 3) 4 mg, Oral, EVERY 8 HOURS PRN, Starting on Tue06/02/25 at 1205, Until Discontinued, Nausea, Vomiting * 2140 (See Alternative - Provider: Adia Blandon RN) * 0750 (See Alternative - Provider: Flip Dubose, ERIN) [...] use in patients with CrCl less than 30mL/min. Do not crush, chew, or suck on tablet. Tablet may also be broken in half and each half swallowed separately. potassium chloride 10 mEq/100 mL IVPB (Peripheral Line)(Linked Group 4) 10 mEq, IntraVENous, PRN, Starting on 06/02/25 at 1205, Until Discontinued, at 100 mL/hr, Potassium Replacement, K Lab Replacement Action 2.7-3.0 10 mEq IVPB x 6 doses (60 mEq Total) < 2.7 CALLPHYSICIAN and 10 mEq IVPB x 6 doses (60 mEq Total) Infuse at 10 mEq/hr Repeat Potassium lab 1 hour after final administration. Not for use in patients with CrCl less than 30 mL/min. sodium chloride flush 0.9 % injection 10 mL 10 mL, IntraVENous, PRN, Starting on 06/02/25 at 1205, Until Discontinued, Line Care, After every IV line use Order Group 1: acetaminophen (TYLENOL) tablet 650 [...] 06/02/25 at 1205, Repeat blood glucose in 15minutes. If blood glucose remains LESS THAN 70 mg/dL, repeat treatment and recheck blood glucose in15 minutes x 2. If using glycemic management [...] use in patients with CrCl less than 30mL/min. Do not crush, chew, or suck on [...] 6 doses (60 mEq Total) < 2.7 CALLPHYSICIAN and 10 mEq IVPB x 6 doses (60 mEq Total) Infuse at 10 mEq/hr Repeat Potassium lab 1 hour after final administration. Not for use in patients with CrCl less than 30 mL/min. Medication Order//08/2025 apixaban (ELIQUIS) tablet 5 mg 5 mg, oral, 2 times daily, First dose on 06/22/25 at 2100, Indication: Nonvalvular Atrial Fibrillation (NVAF) * 2112 (Given - Provider: Yonathan Joy RN) * 0856 (Given - Provider: Debra Huggins RN) * 2100 (Due) atenoloL (TENORMIN) tablet 25 mg (CANCELED) 25 mg, oral, Daily, First dose on Tue06/22/25 at 0930, Hold if systolic BP <100 or hr <60 * 1014 (Given - Provider: Debra Huggins RN) gabapentin (NEURONTIN) capsule 300 mg (CANCELED) 300 mg, oral, Daily, First dose on Tue06/18/25 at 0900, Look-alike/sound-alike medication - verify indication for use. * 0859 (Given - Provider: Lauren Gaona RN) glucagon HCL injection 1 mg (COMPLETED) 1 mg, intramuscular, Once, On Tue06/22/25 at 1530, For 1 dose * 1625 (Given - Provider: Debra Huggins RN) [...] TO NEONATES Monitor thyroid function tests weekly * 0603 (Given - Provider: Nicole Sparks RN) * 0649 (Given - Provider: Yonathan Joy RN) * 0501 (Given - Provider: Yonathan Joy RN) lidocaine (LIDODERM) 5 % 1 patch 1 patch, transdermal, Administer over 12 Hours, Daily, First dose on Tue06/19/25 at 0900, Apply to intact skin on the painful area on back. Patch(es) may remain in place for up to 12 hours in any 24-hour period. Remove previous patch, if present, before applying new. * 0859 (Medication Applied - Provider: Lauren Gaona RN - Comment: back) * 2058 (Medication Removed - Provider: Yonathan Joy RN) * 0831 (Medication Applied - Provider: Debra Huggins RN - Comment: back) * 2030 (Medication Removed - Provider: Yonathan Joy RN) * 0856 (Medication Applied - Provider: Debra Huggins RN - Comment: back) * 2055 (Due: Medication Removed - Provider: Debra Huggins RN) midodrine (PROAMATINE) tablet 5 mg 5 mg, oral, 3 times daily, First dose on Tue06/21/25 at 1430, Hold for systolic blood pressure more than 120 Look-alike/sound-alike medication - verify indication for use. * 1549 (Given - Provider: Lauren Gaona RN) * 2258 (Not Given - Provider: Yonathan Joy RN - Reason: Patient/family refused - Comment: bp 130/69) * 0650 (Given - Provider: Yonathan Joy RN - Comment: BP 109/93) * 1327 (Given - Provider: Debra Huggins RN) * 2112 (Not Given - Provider: Yonathan Joy RN - Reason: Order parameters not met - Comment: bp 129/75) * 0501 (Not Given - Provider: Yonathan Joy RN - Reason: Order parameters not met - Comment: bp 137/63) * 1430 (Given - Provider: Debra Huggins RN) * 2199 (Due) pantoprazole (PROTONIX) EC tablet 40 mg 40 mg, oral, Daily, First dose on Tue06/18/25 at 0600, Look-alike/sound-alike medication - verify indication for use. If patient is receiving enteral feeding, consider alternative PPI or continue IV pantoprazole until the delayed-release tablet can be taken orally, Indication: GERD * 0603 (Given - Provider: Nicole Sparks RN) * 0649 (Given - Provider: Yonathan Joy RN) * 0501 (Given - Provider: Yonathan Joy RN) rosuvastatin (CRESTOR) tablet 5 mg 5 mg, oral, Nightly, First dose on Tue06/19/25 at 2200, Look-alike/sound-alike medication - verify indication for use. * 2030 (Given - Provider: Yonathan Joy RN) * 2112 (Given - Provider: Yonathan Joy RN) * 2200 (Due) sodium chloride tablet 1,000 mg 1,000 mg, oral, 3 times daily around food, First dose (after last modification) on Tue06/20/25 at 1700 * 0903 (Given - Provider: Lauren Gaona RN) * 1320 (Given - Provider: Lauren Ganoa RN) * 1927 (Given - Provider: Lauren Gaona RN) * 0830 (Given - Provider: Debra Huggins RN) * 1208 (Given - Provider: Debra Huggins, RN) * 1625 (Given - Provider: Debra Hugigns RN) * 0856 (Given - Provider: Debra Huggins RN) * 1203 (Given - Provider: Debra Huggins, ERIN) * 1700 (Due) urea (URE-NA) packet 15 g 15 g, oral, 2 times daily, First dose on Tue06/20/25 at 1330, Mix each 15 g dose with 3 to 4 ounces of water or juice. * 0904 (Given - Provider: Lauren Gaona RN) * 203 (Given - Provider: Yonathan Joy, ERIN) * 0831 (Given - Provider: Debra Huggins RN) * 211 (Given - Provider: Yonathan Joy, ERIN) * 0857 (Given - Provider: Debra Huggins RN) * 2100 (Due) warfarin (COUMADIN) tablet 2.5 mg (CANCELED) [...] notify prescriber if INR greater than: 3.5 * 1625 (Given - Provider: Debra Huggins RN) [...] notify prescriber if INR greater than: 3.5 * 1549 (Given - Provider: Lauren Gaona RN) Medication Order//08/2025 heparin infusion 58079 units/500 mL in 0.45% NaCl (50 units/mL [...] less than or equal to 50% of baselineMonitor for signs of bleeding. Look-alike/sound-alike medication - verify indication for use., Indic ation: Afib or Mechanical Valve, INITIAL Infusion Dose (Units/hr): 950 units/hr * 0711 (Handoff - Provider: Nicole Sparks RN) * 0935 (Stop Bag - Provider: Lauren Gaona RN - Comment: neuro change, hold at this time per Dr Crisostomo) * 1326 (New Bag - Provider: Lauren Gaona, RN) * 0712 (Handoff - Provider: Yonathan Joy RN) * 1848 (Handoff - Provider: Debra Huggins RN) * 2100 (Stop Bag - Provider: Yonathan Joy RN - Comment: [Order ends at this time. Document the following action when infusion is complete: Stop Bag]) Medication Order//08/2025 acetaminophen (TYLENOL EXTRA STRENGTH) tablet 1,000 mg(Linked Group 1) 1,000 mg, oral, Every 6 hours PRN, severe pain - pain scale 7-10, Starting on Tue06/18/25 at 2237 * 0141 (Given - Provider: Yonathan Joy RN) acetaminophen (TYLENOL) tablet 650 mg(Linked Group 1) 650 mg, oral, Every 6 hours PRN, mild pain - pain scale 1-3, moderate pain - pain scale 4-6, temperature greater than 38 C, headaches, Starting on Tue06/18/25 at 2237 * 0141 (See Alternative - Provider: Yonathan Joy RN) calcium gluconate 3,000 mg in sodium chloride 0.9 % 100 mL IVPB 3,000 mg, intravenous, at 43.3 mL/hr, Administer over 3 Hours, As needed, ionized calcium 3.5 to 3.9 mg/dL, Starting on Tue06/22/25 at 1115, IV Administration of calcium via a central or deep vein preferred. Avoid administration in small hand veins VESICANT (RED) calcium gluconate 4,000 mg in sodium chloride 0.9 % 250 mL IVPB 4,000 mg, intravenous, at 72.5 mL/hr, Administer over 4 Hours, As needed, ionized calcium 3.4 mg/dLor less, Starting on 06/22/25 at 1115, IV administration of calcium via a central or deep vein ispreferred. Avoid administration in small hand veins. VESICANT [...] less than 70 mg/dL, Starting on Tue06/17/25 [id number], If patient conscious and taking PO. If blood glucose is not greater than 70 mg/dL after initial treatment, repeat treatment. dextrose 50 % in water (D50W) 50% solution 25 mL 25 mL, intravenous, As needed, low blood sugar, blood glucose less than 70 mg/dL and unconscious orNPO with IV access, Starting on Tue06/17/25 at [...] mg/dL after initial treatment, repeat treatment. VESICANT (RED)Warning: HYPERTONIC solution. glucagon HCL injection 1 mg [...] additional orders. If blood glucose is not greaterthan 70 mg/dL after initial treatment, repeat treatment. [...] mL in iso-osmotic water (40 mg/mL premix) (Linked Group 2) 2,000 mg, intravenous, at 25 mL/hr, Administer over 120 Minutes, As needed, for magnesium level 1.7to 1.9 mg/dL or ionized magnesium level 0.45 to 0.5 mmol/L, Starting on Tue06/17/25 at 1622, Use premix solution. Default to ionized magnesium level in cases where patient has both magnesium and ionized magnesium results. If administered, check ionized magnesium (or total magnesium if ionized magnesium unavailable) level 4 hours after infusion. * 0928 (See Alternative - Provider: Debra Huggins RN) * 1328 (See Alternative - Provider: Debra Huggins RN) magnesium sulfate IVPB 4000 mg/100 mL in iso-osmotic water (40 mg/mL premix) (Linked Group 2) 4,000 mg, intravenous, at 25 mL/hr, Administer over 240 Minutes, As needed, for magnesium level 1.6mg/mL or less, or ionized magnesium level 0.44 mmol/L or less, Starting on Tue06/17/25 at 1622, Use premix solution. Default to ionized magnesium level in cases where patient has both magnesium and ionized magnesium results. If administered, check ionized magnesium (or total magnesium if ionized magnesium unavailable) level 4 hours after infusion. * 0928 (New Bag - Provider: Debra Huggins RN) * 1328 (Stop Bag - Provider: Debra Huggins RN) [...] line care, Starting on 06/17/25 at 1612 * 0831 (Given - Provider: Debra Huggins RN) [...] 4 hours after infusion complete. Infuse using centralline access. sodium phosphate 20 mmol in sodium chloride 0.9 % 250 mL IVPB(Linked Group 4) 20 mmol, intravenous, at 42.8 mL/hr, Administer over 6 Hours, As needed, for phosphorous level 2.3 mg/dL or less, Starting on 06/22/25 at 1114, Administer over 6 hours via dedicated line (peripheral line). If administered, recheck phosphorus level 4 hours after infusion complete. Order Group 1: acetaminophen (TYLENOL) tablet 650 [...] 120 Minutes, As needed, for magnesium level 1.7to 1.9 mg/dL or ionized magnesium level 0.45 [...] 240 Minutes, As needed, for magnesium level 1.6mg/mL or less, or ionized magnesium level 0.44 [...] 4 hours after infusion complete. Infuse using centralline access. Or sod phos di, mono-K phos [...] BE BASED ON THE PRIMARY CLINICAL RECORDS. [facility] [employer] [facility]. provides no warranty or guarantee of the accuracy or completeness of information in this document.
[2025-09-03 10:43] LABS: Anion Gap 12.2; Blood Urea Nitrogen 9.0 mg/dL (7.0-18.0); Calcium 8.6 mg/dL (8.5-10.1); Carbon Dioxide 23.3 mmol/L (21.0-32.0); Chloride 87 mmol/L (98-107); Estimated GFR (African America >60 (>=60 mL/min/1.73m^2); Estimated GFR (Non-African Ame >60 (>=60 mL/min/1.73m^2); Glucose 129 mg/dL (74-106); Potassium 4.5 mmol/L (3.5-5.1)
[2025-09-03 10:46] LABS: Sodium 118 mmol/L (136-145)
--- NOTE | 2025-09-03 11:00 | PC.NURSE ---
called and spoke with . updates given. pt lives at home with . pt follows some commands, makes effort to squeeze this nurses hands on command. very weak in all extremities. makes eye contact, does not talk, moans.
[2025-09-03] MEDS: 0.9 % SODIUM CHLORIDE 1,000 ML 75 ML IV (12:13)
--- NOTE | 2025-09-03 14:06 | PM.IMHP1 ---
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 History obtained from the ED chart review however the patient was not able to give me any history nor to the ED staff. Upon encounter, patient is alert and awake however he is lethargic as well as following commands at times however weak and ill-appearing. Labs in the ED included an unremarkable CBC. His CMP showed sodium of 117 with chloride of 83 normal renal function and magnesium of 1.6. Potassium was 4.6. His UA was negative and urine toxicology was negative. No plasma lactic or urine sodium were collected in the ED. Chest x-ray was negative for acute pathology. CT head without contrast was negative for acute bleed. CT chest without contrast was done given concern for pneumothorax however it showed no pneumothorax did show some dependent bibasilar ground glass opacities which could be due to infection or inflammation or atelectasis but no pneumothorax. 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 He was started on IV fluids NS 75 mL/h and his repeat sodium at 10 in the morning was 118. Patient admitted under hospitalist service for further workup and management Review of Systems ROS Status of ROS unobtainable due to medical condition and unobtainable due to mental status [facility] Medical History (Updated 09/03/25 @ 14:12 by Thalia Cervantes MD) Diverticulitis ?K57.92 - Diverticulitis of intestine, part unspecified, without perforation or abscess without bleeding (ICD-10) Hyponatremia ?E87.1 - Hypo-osmolality and hyponatremia (ICD-10) Paroxysmal atrial fibrillation ?I48.0 - Paroxysmal atrial fibrillation (ICD-10) Syncope ?R55 - Syncope and collapse (ICD-10) Abrasion of scalp ?S00.01XA - Abrasion of scalp, initial encounter (ICD-10) Closed head injury ?S09.90XA - Unspecified injury of head, initial encounter (ICD-10) Laceration of scalp ?S01.01XA - Laceration without foreign body of scalp, initial encounter (ICD-10) Low back pain ?M54.50 - Low back pain, unspecified (ICD-10) Lumbar spondylosis ?M47.816 - Spondylosis without myelopathy or radiculopathy, lumbar region (ICD-10) Thoracic back pain ?M54.6 - Pain in thoracic spine (ICD-10) 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 - Other specified mononeuropathies (ICD-10) Paresthesias in right hand ?R20.2 - Paresthesia of skin (ICD-10) Foreign body in right ear ?T16.1XXA - Foreign body in right ear, initial encounter (ICD-10) Hyponatremia ?E87.1 - Hypo-osmolality and hyponatremia (ICD-10) Hypomagnesemia ?E83.42 - Hypomagnesemia (ICD-10) RADHA (acute kidney injury) ?N17.9 - Acute kidney failure, unspecified (ICD-10) Influenza ?J11.1 - Influenza due to unidentified influenza virus with other respiratory manifestations (ICD-10) Hypomagnesemia ?E83.42 - Hypomagnesemia (ICD-10) Acute hyponatremia ?E87.1 - Hypo-osmolality and hyponatremia (ICD-10) Acute confusion ?R41.0 - Disorientation, unspecified (ICD-10) Diabetes ?E11.9 - Type 2 diabetes mellitus without complications (ICD-10) High cholesterol ?E78.00 - Pure hypercholesterolemia, unspecified (ICD-10) Surgical History Hx of carpal tunnel repair ?Z98.890 - Other specified postprocedural states (ICD-10) Family History Father Family history of myocardial infarction Family history of hypertension Mother Family history of cancer Family history of diabetes mellitus Social History (Updated 06/12/25 @ 22:04 by Edda Yap RN) Within the past year, how often did you have a drink containing alcohol: 2-4 times a month Smoking status: Never smoker Second hand tobacco smoke exposure: No Non-prescribed substance use: denies use Known occupational exposures/hazards: No Highest level of school completed/degree received: high school graduate Are you now , , , , never or living with a partner: Little interest or pleasure in doing things: not at all Feeling down, depressed, or hopeless: not at all Feel stressed/tense/nervous/anxious/difficulty sleeping: not at all Gender Identity: male Gender Identity Comment: Unable to assess due to AMS, Expressive aphasia. Meds Home Medications and Allergies Home Medications ?Medication ?Instructions ?Recorded ?Confirmed ?Type levothyroxine 25 mcg tablet 25 mcg PO QAM 08/21/23 09/03/25 History tamsulosin 0.4 mg capsule 0.4 mg PO DAILY 08/21/23 09/03/25 History finasteride 5 mg tablet 5 mg PO DAILY 11/13/23 09/03/25 History gabapentin 300 mg capsule 300 mg PO DAILY 08/13/24 09/03/25 History aspirin 81 mg tablet,delayed 81 mg PO QD 5 days #5 tabs 06/13/25 09/03/25 Rx release atenolol 25 mg tablet 12.5 mg PO DAILY 06/13/25 09/03/25 History apixaban 5 mg tablet (Eliquis) 5 mg PO Q12H 07/19/25 09/03/25 History omeprazole 40 mg capsule,delayed 40 mg PO DAILY 07/30/25 09/03/25 History release meloxicam 7.5 mg tablet 7.5 mg PO DAILY PRN Pain #0 tabs 08/02/25 09/03/25 Rx food supplemt, lactose-reduced 1 ea PO BID #0 mL 08/09/25 09/03/25 Rx (Ensure Active Protein-Muscle oral liquid) sennosides 8.6 mg-docusate sodium 2 tab PO QD #30 tabs 08/09/25 09/03/25 Rx 50 mg tablet sodium chloride 1,000 mg soluble 2,000 mg (2 x 1,000 mg) PO BID #0 08/09/25 09/03/25 Rx tablet tabs atorvastatin 10 mg tablet 10 mg PO .QHS 09/03/25 09/03/25 History glimepiride 2 mg tablet 2 mg PO QDAY 09/03/25 09/03/25 History linagliptin 5 mg tablet (Tradjenta) 5 mg PO QDAY 09/03/25 09/03/25 History magnesium oxide 500 mg capsule 500 mg PO QDAY 09/03/25 09/03/25 History Allergies Allergy/AdvReac Type Severity Reaction Status Date / Time No Known Drug Allergies Allergy Verified 07/30/25 07:12 Exam Narrative Exam Narrative: General: Frail elderly male. Lethargic but opening his eyes, able to secure his airways. Following commands but generalized weakness is noted. Hard of hearing as a known from before Skin:Warm, no pallor noted.There is no rash noted. Head:Normocephalic, atraumatic Eye: Normal conjunctiva, no drainage Ears, Nose, Mouth, and Throat: oral mucosa is moist. Nares patent. Mouth without vesicles. Ear canals patent. Tm?s without Erythema Cardiovascular:Regular Rate and Rhythm Respiratory:Patient is in no distress, no accessory muscle use, lungs are clear to auscultation, no wheezing, rales or rhonchi Back:non-tender GI: Soft and nontender, no signs of acute abdomen Musculoskeletal: The patient has no evidence of calf tenderness, no pitting edema, symmetrical pulses noted bilaterally Neurological: His eyes are open. He does not answer any my questions or follow simple commands. Constitutional Vital Signs, click to edit/add: Last Vital Signs Temp 98.4 F 09/03/25 12:00 Pulse 120 H 09/03/25 13:59 Resp 20 09/03/25 13:40 BP 141/85 09/03/25 13:00 Pulse Ox 98 09/03/25 13:40 O2 Del Method Room Air 09/03/25 12:00 Internal Medicine - H&P: Reslt Labs Labs: Short CBC 09/03/25 Range/Units 01:53 WBC 7.1 (4.0-11.0) 10^3/uL Hgb 14.0 (14.0-18.0) g/dL Hct 38.5 L (42.0-54.0) % Plt Count 156 (150-450) 10^3/uL BMP 09/03/25 09/03/25 01:53 10:16 Sodium 117 L* 118 L* Potassium 4.6 4.5 Chloride 83 L* 87 L Carbon Dioxide 26.5 23.3 BUN 9.0 9.0 Creatinine 0.79 0.75 Glucose 146 H 129 H Calcium 9.0 8.6 Urine 10/21/25 Range/Units 02:00 Urine Color Yellow (YELLOW) Urine Clarity Clear (CLEAR) Urine pH 6.0 (5.0-9.0) Ur Specific [place] 1.015 (1.005-1.025) Urine Protein Negative (NEG/TRACE) mg/dL Urine Glucose (UA) Negative (NEGATIVE) mg/dL Urinary Catheter Management Urinary Catheter Management Urethral: Cath placed during this visit: yes Urethral indwelling: Yes Reason for continuing: measure accurate output Insertion date: 09/03/25 Insertion time: 02:26 Assessment and Plan Assessment and Plan (1) Hyponatremia with decreased serum osmolality: (2) Frailty: (3) Debility: Plan Altered mental status in the setting of symptomatic hyponatremia Frailty and debility Questionable compliance, history of SIADH may be on top of some dehydration - Patient admitted to stepdown unit - Check NA level every 4 hours - I spoke to nephrology at [facility], Dr. Reyes pullman conductor, recommended no transfer for now to [facility] as he can be managed here with his guardians. - Nephrology service recommended getting stat urine sodium and urine osmolarity and will decide on further management in regards to whether to start the patient on hypertonic saline - Neuro checks every 2-4 hours - Sodium correction of up to 6-8 mill equivalents in the period of 24 hours not more than that - Fluid restriction 1.5 L - Medication was reconciled by my colleague I will continue that -DNRCCA -Will try to speak to his today and update her on the plan
[2025-09-03] MEDS: SODIUM CHLORIDE 1,000 MG TABLET 2000 MG PO (14:41)
[2025-09-03 14:59] LABS: ABG PCO2 33.1 mmHg (35.0-45.0); Allen Test POSITIVE (POSITIVE); HCO3 ABG 21.8 mmol/L (22.0-26.0); Oxygen Saturation ABG 97.4 %; PO2 ABG 80.9 mmHg (80.0-100.0)
[2025-09-03] MEDS: FUROSEMIDE 20 MG/2 ML VIAL IVP (14:59)
[2025-09-03 15:00] LABS: O2 Mode RA; Puncture Site L RAD
[2025-09-03 15:26] LABS: Sodium 115 mmol/L (136-145)
--- NOTE | 2025-09-03 15:29 | CM.NOTE ---
[facility] called for update, pt's had reached out to let them know he was inpatient.
--- NOTE | 2025-09-03 16:05 | SWNOTE1 ---
Pt is sleeping, SW to see patient tomorrow.
[2025-09-03 18:42] LABS: Sodium 120 mmol/L (136-145)
[2025-09-03] MEDS: ENSURE ORIGINAL 237 ML BOTTLE PO (21:05)
[2025-09-03] MEDS: APIXABAN 5 MG TABLET PO (21:05)
[2025-09-03 22:29] LABS: Sodium 120 mmol/L (136-145)
[2025-09-04] VITALS (47 sets, daily range): BP systolic 97–142; BP diastolic 48–89; PULSE 76–132; TEMP 36.1–36.6; O2SAT 90–98
[2025-09-04 01:55] LABS: Sodium 118 mmol/L (136-145)
[2025-09-04] MEDS: SODIUM CHLORIDE 3 % 500 ML 30 ML IV ×2 (03:24→11:00)
[2025-09-04 06:36] LABS: Hematocrit 37.0 % (42.0-54.0); Hemoglobin 13.6 g/dL (14.0-18.0); Immature Granulocytes Abs Auto 0.03 10^3/uL (0.00-0.03); Immature Granulocytes Pct Auto 0.2 % (0.0-0.5); Lymphocytes Absolute Auto 0.8 10^3/uL (1.2-3.8); Mean Corpuscular HGB Conc 36.8 g/dL (29.9-35.2); Mean Corpuscular Hemoglobin 31.4 pg (25.9-34.0); Mean Corpuscular Volume 85.5 fL (80.0-94.0); Platelet Count 166 10^3/uL (150-450); Red Blood Count 4.33 10^6/uL (4.70-6.10); White Blood Count 12.8 10^3/uL (4.0-11.0)
[2025-09-04 06:43] LABS: Magnesium 1.5 mg/dL (1.8-2.4)
[2025-09-04] MEDS: INSULIN ASPART 300 UNIT/3 ML PEN SUBQ (08:35)
--- NOTE | 2025-09-04 09:27 | CM.NOTE ---
Call placed to [facility] to request a transfer. Currently no beds available pending discharges they will call when a bed becomes available.
[2025-09-04 09:51] LABS: Anion Gap 11.3; Blood Urea Nitrogen 10.0 mg/dL (7.0-18.0); Calcium 8.7 mg/dL (8.5-10.1); Carbon Dioxide 26.9 mmol/L (21.0-32.0); Chloride 87 mmol/L (98-107); Estimated GFR (African America >60 (>=60 mL/min/1.73m^2); Estimated GFR (Non-African Ame >60 (>=60 mL/min/1.73m^2); Glucose 125 mg/dL (74-106); Potassium 4.2 mmol/L (3.5-5.1)
--- NOTE | 2025-09-04 09:55 | CT_ITS ---
The [address] [address] Patient Name: INDIANA ZABALA MRN: [id number] date: 1940 Sex: M Assigned Patient Location: [place] Current Patient Location: [place] Accession/Order Number: [id number] Exam Date: 09/04/2025 09:45 Report Date: 09/04/2025 10:29 At the request of: SAGAR RETANA MD Procedure: CT head/brain wo con CT BRAIN WITHOUT CONTRAST: CLINICAL HISTORY: Hyponatremia, altered mental status COMPARISON: 09/03/2025 TECHNIQUE: Contiguous axial unenhanced images were obtained through the brain. This CT exam was performed using one or more following dose reduction techniques: Automated exposure control, adjustment of the mA and/or kV according to patient size, or use of iterative reconstruction technique. FINDINGS: There is generalized atrophy. The ventricles are stable in size and position. Physiologic basal ganglia calcifications are seen. Mild microvascular changes are noted. There are no developing areas of abnormal attenuation. There is no hemorrhage, mass effect or extra-axial collections. Mild mucosal thickening is again visualized within the left maxillary sinus. The mastoid air cells are clear. There is carotid siphon and vertebral artery plaque. CT/CT head/brain wo con IMPRESSION: ATROPHY AND CHRONIC MICROVASCULAR CHANGES. NO ACUTE INTRACRANIAL ABNORMALITY. Impression dictated by: Connie Reinoso M.D. 09/04/2025 10:29 AM Dictation Location: [place] [address] Electronically authenticated by: [id number] Y Date: 09/04/2025 10:29
--- NOTE | 2025-09-04 10:00 | CM.NOTE ---
Rounds made with Dr. Cervantes, pt very obtunded and slow to respond. Dr. Cervantes will order CT head today and pt will transfer to [facility]. CM will initiate transfer to [facility].
[2025-09-04 10:01] LABS: Sodium 121 mmol/L (136-145)
--- NOTE | 2025-09-04 11:00 | PM.EN ---
Event Note Event Note: Patient's mental status is poorly improving. His sodium was 118 at 1 AM and he was started by overnight physician on hypertonic saline 3% 8 mL/h. I arrived to see the patient round 9 in the morning hold the hypertonic saline given his poor influence of mental status and I ordered stat sodium which came back as [address] head without contrast which was negative for acute stroke or any other cerebral edema. Patient is oriented to himself he is hard of hearing at baseline he is awake opening his eyes but he is very lethargic. He is very much able to secure his airway to his GCS is at least 12. Patient already accepted at [facility] I spoke Dr. Soto who is the accepting physician. I still spoke to nephrology and [facility] in the meantime until we find a bed and the patient gets transported. Dr. Saxena recommends restarting hypertonic saline 3% at a rate of 30 mL/h and giving the Lasix 20 mg IV every 12 hours given the patient's good blood pressure and good urine output as well. And to stop hypertonic saline once the sodium level is around 125. We will be checking sodium every 1 hour. I discussed the plan with the nursing team. We will monitor the patient closely.
[2025-09-04 12:10] LABS: Sodium 124 mmol/L (136-145)
--- NOTE | 2025-09-04 12:25 | MR_ITS ---
The [address] [address] Patient Name: INDIANA ZABALA MRN: [id number] date: 1940 Sex: M Assigned Patient Location: MS Current Patient Location: [place] Accession/Order Number: [id number] Exam Date: 09/04/2025 13:25 Report Date: 09/04/2025 14:57 At the request of: SAGAR RETANA MD Procedure: MR head/brain wo con MR head/brain wo con 09/04/2025 2:14 PM SIGN AND SYMPTOMS: Altered mental status, hyponatremia, aphasia PROTOCOL: Multiplanar multisequence MR images of the brain without IV contrast COMPARISON: 06/13/2025 and 08/05/2025 FINDINGS: Extra axial spaces: There is age-related cortical atrophy. Hemorrhage: There is a focus of susceptibility within the right frontal subcortical white matter corresponding to an area of T2 shine through on diffusion and apparent diffusion coefficient imaging suggesting an area of previous hemorrhage. This is new when compared to the May study. Ventricular system: Within normal limits. Basal cisterns: Within normal limits and not effaced. Cerebral parenchyma: T2 and FLAIR hyperintense signal is noted in the periventricular and subcortical white matter. Remote lacunar infarcts are noted in the right frontal periventricular white matter and right caudate nucleus similar to the prior CT.. Midline shift: None.. Cerebellum: Within normal limits. Brainstem: Within normal limits. OTHER: Calvarium: Normal marrow signal. Vascular system: Satisfactory flow voids within the anterior and posterior circulation. Visualized Paranasal sinuses: Mucosal thickening is noted in the left maxillary sinus. Visualized Orbits: Within normal limits. Visualized upper cervical spine: Within normal limits. Sella and skull base: Within normal limits. MR/MR head/brain wo con IMPRESSION: There is a focus of susceptibility within the right frontal subcortical white matter corresponding to an area of T2 shine through on diffusion and apparent diffusion coefficient imaging suggesting an area of previous hemorrhage. This is new when compared to the May study. Chronic age-related neurodegenerative changes are noted as above Remote lacunar infarcts are noted right caudate nucleus and right frontal periventricular white matter. Impression dictated by: Antelmo Sinha M.D. 09/04/2025 2:57 PM Dictation Location: [place] [address] Electronically authenticated by: [id number] Y Date: 09/04/2025 14:57
--- NOTE | 2025-09-04 13:01 | SWNOTE1 ---
Plan is for pt to be transferred to higher level of care.
--- NOTE | 2025-09-04 13:01 | SWNOTE1 ---
Important Message from Medicare was reviewed over the phone with pt's , Leelee Aguilera, no further questions at this time. Form signed and original placed in pt's room and copy placed on chart.
[2025-09-04 13:20] LABS: Sodium 123 mmol/L (136-145)
--- NOTE | 2025-09-04 14:35 | P.PN_ITS ---
Progress Note: Subjective Subjective Interval history: Patient continues to be lethargic and altered mentally. He is able to open his eyes very able to secure his airways however, still very lethargic. He is hard of hearing baseline. Overnight events reviewed. Patient was started on hypertonic saline earlier this morning Exam Narrative Exam Narrative: General: Frail elderly male. Lethargic but opening his eyes, able to secure his airways. Following commands but generalized weakness is noted. Hard of hearing as a known from before Skin:Warm, no pallor noted.There is no rash noted. Head:Normocephalic, atraumatic Eye: Normal conjunctiva, no drainage Ears, Nose, Mouth, and Throat: oral mucosa is moist. Nares patent. Mouth without vesicles. Ear canals patent. Tm?s without Erythema Cardiovascular:Regular Rate and Rhythm Respiratory:Patient is in no distress, no accessory muscle use, lungs are clear to auscultation, no wheezing, rales or rhonchi Back:non-tender GI: Soft and nontender, no signs of acute abdomen Musculoskeletal: The patient has no evidence of calf tenderness, no pitting edema, symmetrical pulses noted bilaterally Neurological: His eyes are open. Continues to be confused and lethargic. He is oriented when you call him by his name however he is not able to follow commands. Somewhat similar to yesterday Constitutional Vital Signs, click to edit/add: Last Vital Signs Temp 98 F 09/04/25 07:23 Pulse 88 09/04/25 12:00 Resp 18 09/04/25 07:23 BP 132/52 09/04/25 07:23 Pulse Ox 94 L 09/04/25 12:00 O2 Del Method Room Air 09/04/25 07:23 Progress Note: Objective Labs Labs: Short CBC 09/04/25 Range/Units 06:19 WBC 12.8 H (4.0-11.0) 10^3/uL Hgb 13.6 L (14.0-18.0) g/dL Hct 37.0 L (42.0-54.0) % Plt Count 166 (150-450) 10^3/uL BMP 09/03/25 09/03/25 09/03/25 14:47 18:16 21:52 Sodium 115 L* 120 L* 120 L* Potassium Chloride Carbon Dioxide BUN Creatinine Glucose Calcium 09/04/25 09/04/25 09/04/25 01:15 09:38 11:55 Sodium 118 L* 121 L* 124 L* Potassium 4.2 Chloride 87 L Carbon Dioxide 26.9 BUN 10.0 Creatinine 0.63 L Glucose 125 H Calcium 8.7 09/04/25 12:58 Sodium 123 L* Potassium Chloride Carbon Dioxide BUN Creatinine Glucose Calcium Progress Note: A&P Assessment and Plan (1) Hyponatremia with decreased serum osmolality: (2) Frailty: (3) Debility: Plan Altered mental status in the setting of symptomatic hyponatremia Frailty and debility Questionable compliance, 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 Reyes workers compensation administrator, recommended no transfer for now to [facility] as he can be managed here with his guardians. - Nephrology service recommended getting stat urine sodium and urine osmolarity and will decide on further management in regards to whether to start the patient on hypertonic saline - Neuro checks every 2-4 hours - Sodium correction of up to 6-8 mill equivalents in the period of 24 hours not more than that - Fluid restriction 1.5 L - Medication was reconciled by my colleague I will continue that -DNRCCA -Will try to speak to his today and update her on the plan 09/04/2025 Patient's mental status is poorly improving. Overnight events were reviewed his sodium was 118 at 1 AM and he was started by overnight physician on hypertonic saline 3% 8 mL/h. I arrived to see the patient round 9 in the morning hold the hypertonic saline given his poor influence of mental status and I ordered stat sodium which came back as [address] head without contrast which was negative for acute stroke or any other cerebral edema. Patient is o riented to himself he is hard of hearing at baseline he is awake opening his eyes but he is very lethargic. He is very much able to secure his airway to his GCS is at least 12. Patient already accepted at [facility] I spoke Dr. Soto who is the accepting physician. I still spoke to nephrology and [facility] in the meantime until we find a bed and the patient gets transported. Dr. Saxena recommends restarting hypertonic saline 3% at a rate of 30 mL/h and giving the Lasix 20 mg IV every 12 hours given the patient's good blood pressure and good urine output as well. And to stop hypertonic saline once the sodium level is around 125. We will be checking sodium every 1 hour. I discussed the plan with the nursing team. We will monitor the patient closely. Discussed the case with the nursing team as well as with the hospitalist at [facility] at the piece dyer findings. Patient accepted by Dr. Mattson. He is pending bed availability there. Updated his at bedside with all those notes. Answered all questions. Urinary Catheter Management Urinary Catheter Management Urethral: Cath placed during this visit: yes Urethral indwelling: Yes Reason for continuing: measure accurate output Insertion date: 09/03/25 Insertion time: 02:26
[2025-09-04 14:53] LABS: Sodium 122 mmol/L (136-145)
[2025-09-04] MEDS: SODIUM CHLORIDE 1,000 MG TABLET 1000 MG PO (15:03)
--- NOTE | 2025-09-04 15:48 | PM.DS1 ---
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 History obtained from the ED chart review however the patient was not able to give me any history nor to the ED staff. Upon encounter, patient is alert and awake however he is lethargic as well as following commands at times however weak and ill-appearing. Labs in the ED included an unremarkable CBC. His CMP showed sodium of 117 with chloride of 83 normal renal function and magnesium of 1.6. Potassium was 4.6. His UA was negative and urine toxicology was negative. No plasma lactic or urine sodium were collected in the ED. Chest x-ray was negative for acute pathology. CT head without contrast was negative for acute bleed. CT chest without contrast was done given concern for pneumothorax however it showed no pneumothorax did show some dependent bibasilar ground glass opacities which could be due to infection or inflammation or atelectasis but no pneumothorax. Patient was started on his sodium tablet however he failed [employer] so I did not carry any until now. He was started on IV fluids NS 75 mL/h and his repeat sodium at 10 in the morning was 118. 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 Reyes bonderizer operator, recommended no transfer for now to [facility] [place] as he can be managed here with his guardians. - Nephrology service recommended getting stat urine sodium and urine osmolarity and will decide on further management in regards to whether to start the patient on hypertonic saline - Neuro checks every 2-4 hours - Sodium correction of up to 6-8 mill equivalents in the period of 24 hours not more than that - Fluid restriction 1.5 L - Medication was reconciled by my colleague I will continue that -DNRCCA -Will try to speak to his today and update her on the plan Addendum I updated nephrology on the patient's urine sodium of 195, recommended to stop IV fluids. Start IV Lasix 20 mg twice daily since the patient is euvolemic and blood pressure is good and start sodium tablets at 1 g 3 times daily. Orders received and relayed to the nursing team 09/04/2025 Patient continues to be lethargic and altered mentally. He is able to open his eyes very able to secure his airways however, still very lethargic. He is hard of hearing baseline. Overnight events reviewed. Patient was started on hypertonic saline earlier this morning. 09/04/2025 Patient's mental status is poorly improving. Overnight events were reviewed his sodium was 118 at 1 AM and he was started by overnight physician on hypertonic saline 3% 8 mL/h. I arrived to see the patient round 9 in the morning hold the hypertonic saline given his poor influence of mental status and I ordered stat sodium which came back as [address] head without contrast which was negative for acute stroke or any other cerebral edema. Patient is oriented to himself he is hard of hearing at baseline he is awake opening his eyes but he is very lethargic. He is very much able to secure his airway to his GCS is at least 12. Patient already accepted at [facility] I spoke Dr. Soto who is the accepting physician. I still spoke to nephrology and [facility] in the meantime until we find a bed and the patient gets transported. Dr. Saxena recommends restarting hypertonic saline 3% at a rate of 30 mL/h and giving the Lasix 20 mg IV every 12 hours given the patient's good blood pressure and good urine output as well. And to stop hypertonic saline once the sodium level is around 125-127. We will be checking sodium every 1 hour. I discussed the plan with the nursing team. We will monitor the patient closely. Discussed the case with the nursing team as well as with the hospitalist at [facility] at the aircraft designer findings. Patient accepted by Dr. Mattson. He is pending bed availability there. Updated his at bedside with all those notes. Answered all questions. Addendum at 3:50 pm pt's mentation has improved, he is more awake and oriented to self. He appears better than this morning or yesterday, but still very tired and ill appearing. Discussed the plan with the pt's at bedside. Answered all her questions. Nephrology and hospitalist at [facility] aware of this pt's transfer Time Spent with Patient Time attestation: Total time spent providing and/or coordinating discharge services: Exam Constitutional Vital Signs, click to edit/add: Last Vital Signs Temp 98 F 09/04/25 07:23 Pulse 88 09/04/25 12:00 Resp 18 09/04/25 07:23 BP 132/52 09/04/25 07:23 Pulse Ox 94 L 09/04/25 12:00 O2 Del Method Room Air 09/04/25 07:23 DS: Data Data Completed and Pending Labs on day of discharge: Labs from last 24 hours 09/04/25 09/04/25 09/04/25 14:34 12:58 12:13 WBC RBC Hgb Hct MCV MCH MCHC RDW Plt Count MPV Neut % (Auto) Lymph % (Auto) Jewell % (Auto) Eos % (Auto) Baso % (Auto) Neut # (Auto) Lymph # (Auto) Jewell # (Auto) Eos # (Auto) Baso # (Auto) Abs Immat Gran (auto) Imm/Tot Granulo (auto) Sodium 122 L* 123 L* Potassium Chloride Carbon Dioxide Anion Gap BUN Creatinine Est GFR ( Amer) Est GFR (Non-Af Amer) BUN/Creatinine Ratio Glucose Calcium Magnesium POC Glucose 83 09/04/25 09/04/25 09/04/25 11:55 09:38 08:31 WBC RBC Hgb Hct MCV MCH MCHC RDW Plt Count MPV Neut % (Auto) Lymph % (Auto) Jewell % (Auto) Eos % (Auto) Baso % (Auto) Neut # (Auto) Lymph # (Auto) Jewell # (Auto) Eos # (Auto) Baso # (Auto) Abs Immat Gran (auto) Imm/Tot Granulo (auto) Sodium 124 L* 121 L* Potassium 4.2 Chloride 87 L Carbon Dioxide 26.9 Anion Gap 11.3 BUN 10.0 Creatinine 0.63 L Est GFR ( Amer) >60 Est GFR (Non-Af Amer) >60 BUN/Creatinine Ratio 15.9 Glucose 125 H Calcium 8.7 Magnesium POC Glucose 192 H 09/04/25 09/04/25 09/03/25 06:19 01:15 21:52 WBC 12.8 H RBC 4.33 L Hgb 13.6 L Hct 37.0 L MCV 85.5 MCH 31.4 MCHC 36.8 H RDW 12.3 Plt Count 166 MPV 10.7 Neut % (Auto) 83.2 H Lymph % (Auto) 5.9 L Jewell % (Auto) 10.5 Eos % (Auto) 0.0 L Baso % (Auto) 0.2 Neut # (Auto) 10.6 H Lymph # (Auto) 0.8 L Jewell # (Auto) 1.4 H Eos # (Auto) 0.0 Baso # (Auto) 0.0 Abs Immat Gran (auto) 0.03 Imm/Tot Granulo (auto) 0.2 Sodium 118 L* 120 L* Potassium Chloride Carbon Dioxide Anion Gap BUN Creatinine Est GFR ( Amer) Est GFR (Non-Af Amer) BUN/Creatinine Ratio Glucose Calcium Magnesium 1.5 L POC Glucose 09/03/25 09/03/25 18:16 16:19 WBC RBC Hgb Hct MCV MCH MCHC RDW Plt Count MPV Neut % (Auto) Lymph % (Auto) Jewell % (Auto) Eos % (Auto) Baso % (Auto) Neut # (Auto) Lymph # (Auto) Jewell # (Auto) Eos # (Auto) Baso # (Auto) Abs Immat Gran (auto) Imm/Tot Granulo (auto) Sodium 120 L* Potassium Chloride Carbon Dioxide Anion Gap BUN Creatinine Est GFR ( Amer) Est GFR (Non-Af Amer) BUN/Creatinine Ratio Glucose Calcium Magnesium POC Glucose 127 H Discharge Plan Discharge Disposition: Xfer Acute Care Hospital Condition: Fair
[2025-09-06 14:09] LABS: Osmolality, Urine 622 mOsmol/kg (.)
== END 2025-09-04 16:56 | disposition short-term general hospital (02) | DRG 645 ==
LOC: ER 05:51 → MS 10:06
PROVIDERS: Student in an Organized Health Care Education/Training Program; Admitting Provider Internal Medicine; Emergency Provider Emergency Medicine; PCP Nurse Practitioner Family; Visit Provider Internal Medicine
DX: E22.2 Syndrome of inappropriate secretion of antidiuretic hormone (principal); E86.0 Dehydration; H91.90 Unspecified hearing loss, unspecified ear; E11.9 Type 2 diabetes mellitus without complications; I48.0 Paroxysmal atrial fibrillation; E78.00 Pure hypercholesterolemia, unspecified; Z79.82 Long term (current) use of aspirin; Z79.01 Long term (current) use of anticoagulants; Z79.84 Long term (current) use of oral hypoglycemic drugs; R41.82 Altered mental status, unspecified; Z66 Do not resuscitate; Z86.73 Personal history of transient ischemic attack (TIA), and cerebral infarction without residual deficits; F03.90 Unspecified dementia, unspecified severity, without behavioral disturbance, psychotic disturbance, mood disturbance, and anxiety; Z91.148 Patient's other noncompliance with medication regimen for other reason
CPT/HCPCS: 36415; 51702; 70450; 70551; 71045; 71250; 80048; 80053; 80307; 80320; 81001; 82805; 82948; 83605; 83735; 83935; 84100; 84295; 84300; 84484; 85025; 87040; 93005; 99285; J1938; J7131